=== PATIENT | male | born 1945 | race African-American/Black ===

== ENCOUNTER 2020-02-14 14:58 | Emergency (ER) | payer MEDICARE, SELFPAY ==
--- NOTE | ~2020-02-14 | XR_ITS ---
XR knee LT min 4V 02/14/2020 16:16 Indication: Left knee pain after trauma Procedure: 4 views left knee Comparison: No prior studies for comparison. Findings: There is mild-moderate tricompartment osteoarthritis. No acute fracture or traumatic malali gnment. No significant joint effusion. No focal soft tissue abnormality. No foreign bodies. 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 Reviewed, dictated and finalized at location A. 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
--- NOTE | ~2020-02-14 | XR_ITS ---
XR shoulder LT min 2V 02/14/2020 16:16 Indication: Left shoulder pain Procedure: 4 views left shoulder Comparison: No prior studies for comparison. Findings: No fracture, subluxation or dislocation. No significant soft tissue abnormality. No foreign bodies. Surrounding osseous structures and soft tissues are unremarkable. Impression: 1: No significant bone or joint abnormality. Reviewed, dictated and finalized at location A. Impression: 1: No significant bone or joint abnormality.
--- NOTE | ~2020-02-14 | CT_ITS ---
EXAMINATION: CT brain wo con, CT cervical spine wo con EXAM DATE: 02/14/2020 15:30 INDICATION: Head injury. TECHNIQUE: Spiral CT of the head was performed without contrast. Axial, coronal and sagittal images were reviewed. Spiral CT of the cervical spine was performed without contrast. Axial images were rev iewed. Coronal and sagittal reformatted images were also reviewed. The dose-length product (DLP) fo r this examination was 605.33 (accession [id number]), 442.41 (accession [id number]) mGy-cm. The exposure was tailored according to patient size, and iterative reconstruction (ASIR) was used as additional dose reduction technique. There is no prior study for comparison. FINDINGS: HEAD CT: There is no acute intraparenchymal hemorrhage. No evidence of intraparenchymal brain mass l esion. No evidence of acute infarction. There is mild periventricular and subcortical hypodensity, n onspecific but probably related to small vessel ischemic disease. There is prominence of the sulci and ventricles related to cerebral atrophy. There is intracranial carotid arteriosclerosis. There is no mass effect or midline shift. There is no obstructive hydrocephalus suspected. There are no e xtra-axial collections. There are no acute calvarial fractures. Patient has had bilateral ocular le ns surgery. Soft tissue is unremarkable. The visualized sinuses and mastoid air cells are well aera ana. CERVICAL CT: There is no evidence of acute cervical fracture. The odontoid process is intact. Pre-d ens space is normal. Prevertebral soft tissue is normal. There are no soft tissue abnormalities maria ntified. There is no disc space widening or traumatic vertebral body subluxation suspected. There i s moderate mid and lower cervical disc disease. There is mild to moderate cervical arthropathy. Thyro idectomy surgical clips. A detailed level by level evaluation of spondylosis can be added as addend um if requested. IMPRESSION: 1. No acute intracranial or cervical findings. 2. Moderate cervical disc disease, mild to moderate arthropathy. 3. Age-related intracranial findings. Reviewed, dictated and finalized at location A. IMPRESSION: 1. No acute intracranial or cervical findings. 2. Moderate cervical disc disease, mild to moderate arthropathy. 3. Age-related intracranial findings.
--- NOTE | ~2020-02-14 | XR_ITS ---
EXAMINATION: XR chest 1V EXAM DATE: 02/14/2020 16:17 INDICATION: Chest pain after injury. Lawnmower flipped on patient. History of cardiac disease. TECHNIQUE: Portable AP frontal chest x-ray was obtained. There is no prior study for comparison. FINDINGS: There are no acute displaced rib fractures identified. The lungs are clear. There are no p leural effusions. The cardiomediastinal silhouette is within normal limits. There is no pneumothora x suspected. The bones and soft tissues are unremarkable. Thyroidectomy clips. Clips overlying the cardiac contour. IMPRESSION: No acute cardiopulmonary findings. Reviewed, dictated and finalized at location A.
[2020-02-14 15:07] VITALS: BP 162/88; PULSE 55; RESP 18; TEMP 36.4; O2SAT 100
[2020-02-14] MEDS: MORPHINE SULFATE 2 MG/ML INJ IV PUSH (15:13)
[2020-02-14 15:46] LABS: Basophils Percent Auto 0.6 % (0.2-1.2); Eosinophils Absolute Auto 0.4 K/mm3 (0-0.3); Eosinophils Percent Auto 5.9 % (0-4.4); Immature Granulocyte Absolute 0.02 K/mm3 (0.00-0.031); Immature Granulocyte Percent A 0.3 % (0-0.5); Lymphocytes Absolute Auto 1.81 K/mm3 (0.9-3.2); Lymphocytes Percent Auto 27.9 % (18.3-44.2); Mean Corpuscular HGB Conc 33.3 g/dl (32-36); Mean Corpuscular Hemoglobin 34.2 pg (26-34); Mean Corpuscular Volume 102.7 fl (80-100); Mean Platelet Volume 10.8 fl (7.4-10.4); Monocytes Absolute Auto 0.8 K/mm3 (0.1-0.6); Monocytes Percent Auto 11.7 % (2.6-8.5); Neutrophils Absolute Auto 3.5 K/mm3 (1.3-6.7); Neutrophils Percent Auto 53.6 % (45.5-73.1); Platelet Count Result 225 k/mm3 (150-375); Red Blood Count 4.38 M/mm3 (4.6-6.20); Red Cell Distribution Width 13.2 % (11.5-14.5); White Blood Count 6.5 K/mm3 (4.5-10.0)
[2020-02-14 15:58] LABS: Alanine Aminotransferase 24 U/L (4-50); Albumin Level 3.8 g/dL (3.5-5.1); Alkaline Phosphatase 114 U/L (38-126); Aspartate Amino Transferase 27 U/L (17-59); Bilirubin,Total 0.5 mg/dL (0.2-1.3); Blood Urea Nitrogen 19 mg/dL (9-20); Calcium 8.9 mg/dL (8.4-10.2); Carbon Dioxide 29 mmol/L (22-30); Chloride 106 mmol/L (98-107); Estimated CRCL calculation 54 ml/min; Estimated Glomerular Filt Rate > 60; Glucose 101 mg/dL (75-110); Potassium 4.3 mmol/L (3.4-5.0); Prothrombin Time 12.7 Seconds (11.1-14.7); Sodium 136 mmol/L (137-145)
[2020-02-14 15:59] LABS: Partial Thromboplastin Time 30.4 SECONDS (22.3-36.8)
--- NOTE | 2020-02-14 16:45 | ED.GENADULT ---
HPI - General Adult General Chief complaint: Extremity Injury, Lower Stated complaint: SHOULDER/KNEE PAIN Time Seen by Provider: 02/14/20 15:00 History of Present Illness HPI narrative: Patient is a 74-year-old male who presents ER status post flipping his riding lawnmower. He opted to cut some grass on a wet hill when the lawnmower flipped. He did not strike his head or lose consciousness. He does have new left shoulder pain and left knee pain. He is at the hospital earlier today to have an MRI performed to see why he has some memory impairment and he also had a Holter monitor placed. At this time he is having no chest pain or shortness of breath/nausea/vomiting. He complains of no pain to the chest/abdomen/pelvis. He has good range of motion of his extremities. He is not on any blood thinners. He does not report being trapped beneath the lawnmower. Related Data Allergies Allergy/AdvReac Type Severity Reaction Status Date / Time No Known Allergies Allergy Unverified 07/08/17 10:28 Review of Systems Review of Systems: All systems reviewed & are unremarkable except as noted in HPI and below Constitutional: Constitutional: Denies chills, Denies fever(s) and Denies weakness ENT: Denies nasal congestion and Denies sore throat Cardiovascular: Cardiovascular: Denies chest pain and Denies radiating jaw, neck or arm pain Respiratory: Respiratory: Denies cough, Denies dyspnea and Denies wheezing Gastrointestinal: Gastrointestinal: Denies abdominal pain, Denies nausea and Denies vomiting Musculoskeletal: Musculoskeletal: Denies back pain, Denies myalgias and Reports arthralgias (Left knee and shoulder) PMFSH Past Medical History Medical History (Updated 02/14/20 @ 17:43 by Rehan Wells MD) Myasthenia gravis Surgical History Surgical History (Updated 02/14/20 @ 16:47 by Rehan Wells MD) No pertinent past surgical history Social History Social History (Updated 02/14/20 @ 16:47 by Rehan Wells MD) Smoking status: Never smoker Gender identity (if verbalized by the patient): Male Exam Narrative: Exam Narrative: GENERAL: Well-appearing, well-nourished, and in no acute distress. HEAD: Normocephalic, atraumatic. EYES: PERRL and EOMI. ENT: Mucous membranes moist. NECK: Supple. C-spine immobilized. CHEST: Clear to auscultation. No respiratory distress. HEART: Regular rate and rhythm. Normal peripheral pulses. ABDOMEN: Soft, nontender, nondistended. EXTREMITIES: Mild tenderness to palpation over the anterior aspect of the left shoulder in the anterolateral aspect of the proximal tibia at the knee. Otherwise patient has intact range of motion and strength at these joints. No additional deformity or tenderness over the extremities. SKIN: Warm, dry, no rash. NEURO: No focal deficits. Alert and oriented x3. Course Course Emergency Course: Patient informed of results. Pain-free. here to take him home. C-spine cleared. Vital Signs Vital signs: Vital Signs Temperature 97.6 F 02/14/20 15:07 Pulse Rate 55 L 02/14/20 15:07 Respiratory Rate 18 02/14/20 15:07 Blood Pressure 162/88 H 02/14/20 15:07 Pulse Oximetry 100 02/14/20 15:07 Temperature 98.0 F 02/14/20 17:07 Pulse Rate 67 02/14/20 17:09 Respiratory Rate 18 02/14/20 17:09 Blood Pressure 157/85 H 02/14/20 17:09 Pulse Oximetry 100 02/14/20 17:09 Medical Decision Making Vital Signs Vital Signs: Vital Signs Temperature 97.6 F 02/14/20 15:07 Pulse Rate 55 L 02/14/20 15:07 Respiratory Rate 18 02/14/20 15:07 Blood Pressure 162/88 H 02/14/20 15:07 Pulse Oximetry 100 02/14/20 15:07 Temperature 98.0 F 02/14/20 17:07 Pulse Rate 67 02/14/20 17:09 Respiratory Rate 18 02/14/20 17:09 Blood Pressure 157/85 H 02/14/20 17:09 Pulse Oximetry 100 02/14/20 17:09 Lab Data Result diagrams: 02/14/20 15:40 02/14/20 15:40 Labs: Lab Results
[2020-02-14 17:07] VITALS: BP 162/88; PULSE 55; RESP 12; TEMP 36.7; O2SAT 100
[2020-02-14 17:09] VITALS: BP 157/85; PULSE 67; RESP 18; O2SAT 100
== END 2020-02-14 17:54 | disposition home or self-care (01) ==
PROVIDERS: Emergency Provider Emergency Medicine; PCP Internal Medicine Geriatric Medicine
DX: G70.00 Myasthenia gravis without (acute) exacerbation (principal); S40.012A Contusion of left shoulder, initial encounter; S80.02XA Contusion of left knee, initial encounter; Y93.H2 Activity, gardening and landscaping; W28.XXXA Contact with powered lawn mower, initial encounter
CPT/HCPCS: 36415; 70450; 71045; 72125; 73030; 73564; 80053; 85025; 85610; 85730; 96374; 99284; J2270

== ENCOUNTER 2020-02-26 18:13 | Inpatient (IN) | payer MEDICARE, SELFPAY ==
--- NOTE | ~2020-02-26 | XR_ITS ---
EXAMINATION: XR small bowel follow through DATE: 02/29/2020 09:05 INDICATION: Gastrointestinal bleeding TECHNIQUE: Engineering Geologist radiograph(s) of the abdomen was/were obtained. Oral contrast was administered, and sequential radiographs of the abdomen were obtained until oral contrast was noted to be in the proxi mal colon. Spot fluoroscopic images of the small bowel were obtained. Fluoroscopy exposure time was 2 .4 minutes. A total of 6 overhead radiographs and 221 fluoroscopic images were recorded. COMPARISON: None. FINDINGS: Transit time from the stomach to proximal colon was approximately 30 minutes. There is normal caliber and mucosal fold pattern throughout the small bowel. There are several nonmobile smooth ovoid fillin g defects in the distal ileum which demonstrates some elasticity, reversibly readily deformable with compression. Correlation with prior CT confirms presence of multiple corresponding nodules with homog eneous fat attenuation consistent with lipomas. At least 9 lipomas can be counted on CT. The largest lipoma is the most distal in the terminal ileum approximately 10 cm from the ileocecal valve. Termina l ileum is otherwise normal. No tethering or abnormal mass effect observed upon the small bowel with real-time fluoroscopy. IMPRESSION: 1. Multiple smooth ovoid filling defects within the distal ileum corresponding to lipomas on prior CT . Otherwise unremarkable small bowel follow-through. Reviewed, dictated and finalized at location A. IMPRESSION: 1. Multiple smooth ovoid filling defects within the distal ileum corresponding to lipomas on prior CT. Otherwise unremarkable small bowel follow-through.
--- NOTE | ~2020-02-26 | CT_ITS ---
EXAMINATION: CT abdomen pelvis w con INDICATION: Abdominal pain, hematochezia TECHNIQUE: Computed tomographic images of the abdomen and pelvis were obtained after the administrati on of 100 cc of Omnipaque 350 intravenous contrast. The dose-length product (DLP) was 932.50 mGy-cm. Automated exposure control and iterative reconstruction technique were employed. COMPARISON: None available FINDINGS: The lung bases are clear. The heart size is normal. There are surgical changes at the gastr oesophageal junction. The distal esophagus is mildly dilated and contains fluid. Cysts of the liver m easure up to 1.9 cm. The spleen, pancreas, gallbladder, and adrenal glands are normal. Cysts of the k idneys measure up to 2.9 cm on the left. There is calcified atherosclerosis of the aorta and many of the other arteries. No pathologically enlarged abdominal or pelvic lymph nodes are identified. There is no free intraperitoneal gas or evidence of bowel obstruction. A moderate volume of colonic stool i s present. The appendix is normal. There is a left inguinal hernia containing fat. There are several fat attenuation masses in the distal small bowel measuring up to 2.3 cm, consistent with lipomas. The re is severe lumbar spondylosis at L5-S1. IMPRESSION: 1. No CT correlate for the patient's symptoms. Reviewed, dictated and finalized at location A.
[2020-02-26 18:15] VITALS: BP 188/58; PULSE 82; RESP 18; TEMP 36.6; O2SAT 99
[2020-02-26 18:31] VITALS: BP 146/80; PULSE 79; RESP 23; TEMP 36.4; O2SAT 99
[2020-02-26 18:38] LABS: Basophils Percent Auto 0.5 % (0.2-1.2); Eosinophils Absolute Auto 0.4 K/mm3 (0-0.3); Eosinophils Percent Auto 4.8 % (0-4.4); Hematocrit 37.6 % (42.0-52.0); Hemoglobin 12.8 g/dL (14.0-18.0); Immature Granulocyte Absolute 0.02 K/mm3 (0.00-0.031); Immature Granulocyte Percent A 0.2 % (0-0.5); Lymphocytes Percent Auto 26.5 % (18.3-44.2); Mean Corpuscular Hemoglobin 34.8 pg (26-34); Mean Corpuscular Volume 102.2 fl (80-100); Mean Platelet Volume 11.6 fl (7.4-10.4); Monocytes Absolute Auto 0.7 K/mm3 (0.1-0.6); Monocytes Percent Auto 8.8 % (2.6-8.5); Neutrophils Absolute Auto 4.9 K/mm3 (1.3-6.7); Neutrophils Percent Auto 59.2 % (45.5-73.1); Platelet Count Result 157 k/mm3 (150-375); Red Blood Count 3.68 M/mm3 (4.6-6.20); Red Cell Distribution Width 13.2 % (11.5-14.5); White Blood Count 8.3 K/mm3 (4.5-10.0)
[2020-02-26 18:50] LABS: Alanine Aminotransferase 23 U/L (4-50); Albumin Level 3.7 g/dL (3.5-5.1); Alkaline Phosphatase 99 U/L (38-126); Aspartate Amino Transferase 31 U/L (17-59); Bilirubin,Total 0.6 mg/dL (0.2-1.3); Blood Urea Nitrogen 23 mg/dL (9-20); Calcium 8.5 mg/dL (8.4-10.2); Carbon Dioxide 22 mmol/L (22-30); Chloride 110 mmol/L (98-107); Estimated CRCL calculation 57 ml/min; Estimated Glomerular Filt Rate > 60; Glucose 99 mg/dL (75-110); Lipase 116 U/L (23-300); Potassium 3.8 mmol/L (3.4-5.0); Sodium 136 mmol/L (137-145)
--- NOTE | 2020-02-26 19:21 | ED.GENADULT ---
HPI - General Adult General Chief complaint: GI Bleed Stated complaint: Rectal Bleeding Time Seen by Provider: 02/26/20 19:06 Source: RN notes reviewed History of Present Illness HPI narrative: Patient presents emergency department from home for abdominal pain. Patient states pain began 4 days ago. The pain is located in the right side of the abdomen described as aching in nature. States is been associated with numerous episodes of bright red blood in the stool. States he is had 3 episodes today. Patient states he has a history of diverticulitis and this feels similar. He denies any fevers or chills nausea vomiting or any other symptoms at this time Related Data Home Medications Medication Instructions Recorded Confirmed donepezil mg 02/26/20 gabapentin 02/26/20 levothyroxine 02/26/20 omeprazole 02/26/20 02/26/20 oxycodone 02/26/20 tamsulosin mg PO 02/26/20 temazepam mg 02/26/20 Allergies Allergy/AdvReac Type Severity Reaction Status Date / Time No Known Allergies Allergy Unverified 02/26/20 18:18 Review of Systems Review of Systems: Narrative: Gen.: Denies fevers or chills ENT: Denies congestion Respiratory: Denies shortness of breath or cough CV: Denies chest pain or palpitations GI: See HPI denies burning, urgency, frequency or hematuria Musculoskeletal: Denies back pain or muscle pain Neuro: Denies numbness, tingling, weakness or focal weakness Skin: Denies rash Except as documented, all other systems reviewed and negative PMFSH Past Medical History Medical History (Updated 02/26/20 @ 21:47 by Manjinder Perez DO) Diverticulitis Myasthenia gravis Surgical History Surgical History (Updated 02/14/20 @ 16:47 by Rehan Wells MD) No pertinent past surgical history Social History Social History Smoking status: Never smoker Gender identity (if verbalized by the patient): Male Exam Narrative: Exam Narrative: APPEARANCE: No acute distress, nontoxic, resting in bed HEENT: Normocephalic, atraumatic, OMM RESPIRATORY: No respiratory distress, clear to auscultation bilaterally with no rhonchi wheezing or rales CARDIOVASCULAR: RRR s murmur ABDOMINAL: Soft, nondistended, tender to palpation right upper quadrant right lower quadrant, no tenderness left upper quadrant with lower quadrant, no rebound or guarding Rectal: No hemorrhoids or fissures, minor amount of maroon blood that is Hemoccult positive MUSCULOSKELETAl: Moves all extremities. No clubbing, cyanosis or edema. NEURO: Awake and alert. Following commands, speech normal, no focal deficits SKIN:: Warm, dry. Normal Color PSYCHIATRIC: Normal affect/mood Course Course Emergency Course: Reviewed old records. Patient is been seen by Dr. Menendez before in past. Patient with a hemoglobin of 15 earlier this month Discussed with Dr. Fowler presentation work-up. Agrees with admission at this time Discussed with patient and family results of workup and diagnosis. Discussed need for admission. Patient and family understand and agree to current treatment plan Vital Signs Vital signs: Vital Signs Temperature 97.8 F 02/26/20 18:15 Pulse Rate 82 02/26/20 18:15 Respiratory Rate 18 02/26/20 18:15 Blood Pressure 188/58 H 02/26/20 18:15 Pulse Oximetry 99 02/26/20 18:15 Temperature 97.2 F L 02/26/20 21:15 Pulse Rate 60 02/26/20 21:15 Respiratory Rate 12 02/26/20 21:15 Blood Pressure 137/83 02/26/20 21:15 Pulse Oximetry 100 02/26/20 21:15 Medical Decision Making Vital Signs Vital Signs: Vital Signs Temperature 97.8 F 02/26/20 18:15 Pulse Rate 82 02/26/20 18:15 Respiratory Rate 18 02/26/20 18:15 Blood Pressure 188/58 H 02/26/20 18:15 Pulse Oximetry 99 02/26/20 18:15 Temperature 97.2 F L 02/26/20 21:15 Pulse Rate 60 02/26/20 21:15 Respiratory Rate 12 02/26/20 21:15 Blood Pressure 137/83 02/26/20 21:15 Pulse
[2020-02-26 19:29] VITALS: BP 145/96; PULSE 77; RESP 20; TEMP 36.4; O2SAT 100
[2020-02-26 19:39] LABS: Add Urine Microscopic? YES; Appearance Urine Clear (Clear); Bilirubin Urine Negative (Negative); Blood Urine 2+ (Negative); Color Urine Yellow (Yellow); Glucose Urine UA Negative (Negative); Ketones Urine Negative (Negative); Leukocyte Esterase Ur Trace LEU/UL (Negative); Mucus Urine Rare /lpf; Nitrate Urine Negative (Negative); Protein Urine Negative (Negative); RBC Urine 21-50 /hpf (0-2); Squamous Epithelial Cell Urine Rare /hpf (Few); WBC Urine 0-3 /hpf
[2020-02-26 19:40] LABS: Specific Grav Ur 1.031 (1.001-1.035)
[2020-02-26] MEDS: SODIUM CHLORIDE 0.9% IV 1,000 ML 999 ML IV CONT (19:56)
[2020-02-26 21:15] VITALS: BP 137/83; PULSE 60; RESP 12; TEMP 36.2; O2SAT 100
[2020-02-26 22:04] VITALS: BP 155/86; PULSE 70; RESP 14; TEMP 36.2; O2SAT 100
[2020-02-26 22:09] LABS: Prothrombin Time 12.6 Seconds (11.1-14.7)
[2020-02-26 22:10] LABS: Partial Thromboplastin Time 29.2 SECONDS (22.3-36.8)
--- NOTE | 2020-02-26 22:51 | ADMGEN ---
This patient, Abrahan Gtz Jr., was admitted to Medical Room 258-01. Patient/family oriented to hospital policies and general routines including ID bracelet, bed and alarms, visiting hours, pain management, procedures, bathroom and other care routines, personal items, smoking policy, room service/diet, and visiting hours. Valuables list has been completed. Information on how to activate the Rapid Response Team has been discussed. Patient/Family are encouraged to report perceived risks to care and to ask questions if they do not understand what they are told or what they should do.
[2020-02-26 22:52] VITALS: BMI 29.8
[2020-02-26 22:53] VITALS: PULSE 54; RESP 18; TEMP 36.3; O2SAT 100
[2020-02-26] MEDS: SODIUM CHLORIDE 0.9% IV 1,000 ML 125 ML IV CONT (23:05)
[2020-02-26 23:23] LABS: Hematocrit 33.8 % (42.0-52.0); Hemoglobin 11.4 g/dL (14.0-18.0)
[2020-02-27 05:42] LABS: Hematocrit 32.4 % (42.0-52.0); Hemoglobin 11.1 g/dL (14.0-18.0)
[2020-02-27 06:00] VITALS: BP 136/72; PULSE 60; RESP 20; TEMP 36.6; O2SAT 98
[2020-02-27 06:11] LABS: Alanine Aminotransferase 20 U/L (4-50); Albumin Level 2.9 g/dL (3.5-5.1); Alkaline Phosphatase 87 U/L (38-126); Aspartate Amino Transferase 23 U/L (17-59); Bilirubin,Total 0.5 mg/dL (0.2-1.3); Blood Urea Nitrogen 17 mg/dL (9-20); Calcium 7.7 mg/dL (8.4-10.2); Carbon Dioxide 25 mmol/L (22-30); Chloride 111 mmol/L (98-107); Estimated CRCL calculation 62 ml/min; Estimated Glomerular Filt Rate > 60; Glucose 87 mg/dL (75-110); Potassium 3.9 mmol/L (3.4-5.0); Sodium 136 mmol/L (137-145)
[2020-02-27] MEDS: SODIUM CHLORIDE 0.9% IV 1,000 ML 125 ML IV CONT (06:51)
--- NOTE | 2020-02-27 07:29 | WPDGICN ---
Assessment and Plan Assessment and plan (1) Acute lower GI bleeding: Code(s): K92.2 - Gastrointestinal hemorrhage, unspecified Status: Acute Assessment and Plan: Abrupt lower GI bleeding over the last 3-4 days. Appears more than would be expected from his known hemorrhoids. He is also known to have diverticular disease which is quite likely possibility for this blood loss. Other etiologies include possibility for for polyps cancer colitis or blood other blood vessels bleeding. Plan is for colonoscopy after preparation today. Hemoglobin will be continued to be monitored. (2) Anemia: Code(s): D64.9 - Anemia, unspecified Status: Acute Assessment and Plan: Only mild I would anemia identified. Likely related to abrupt blood loss. At this point transfusion is not been required but will be transfused should hemoglobin fall significantly. (3) Myasthenia gravis: Code(s): G70.00 - Myasthenia gravis without (acute) exacerbation Status: Acute (4) Diverticulosis: Code(s): K57.90 - Diverticulosis of intestine, part unspecified, without perforation or abscess without bleeding Status: Acute Assessment and Plan: Patient known to have diverticular disease from prior colonoscopy. No history of infection or diverticulitis known in the past. This remains a possibility for current GI blood loss. Usually this will stop on its own. Colonoscopy planned after preparation. GI Consult Note Consult date/time: 02/27/20 07:29 HPI: Abrahan Gtz Jr. is a 74 year old male Seen in evaluation at the request of the emergency room. Patient states he was in usual state of health till Wednesday 3 days ago. On Wednesday had sudden onset of dark maroonish blood per rectum. This persisted throughout the weekend. He notices associated abdominal cramping. He did feel somewhat weak and lightheaded. He denies any rectal pain. Because of ongoing rectal bleeding he presented to the emergency room last evening. His hemoglobin was noted to be 11. He was admitted for further evaluation. Patient states that he had similar bleeding episode in 2014. At that time colonoscopy confirm diverticulosis and hemorrhoids. His current weight appetite bowel movements have been normal until this occurrence. Family history is noncontributory. 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 At 1 time he was told he had myasthenia gravis. Review of Systems Review of Systems: All systems reviewed & are unremarkable except as noted in HPI and below PMFSH Past Medical History Medical History Diverticulitis Myasthenia gravis Surgical History Surgical History No pertinent past surgical history Family History Family History Mother Acute myocardial infarction Hypertension Father Acute myocardial infarction Chronic obstructive pulmonary disease History of blood clots Hypertension Sibling Acute myocardial infarction Hypertension Social History Social History Smoking packs per day: 1 Smoking cigarettes per day: 20.0 Years smoked: 4 Smoking pack-years: 4.00 Smoking status: Former smoker Tobacco type: cigarettes Alcohol intake: current Drinks per week: 2 Substance use: never Substance use type: does not use Gender identity (if verbalized by the patient): Male Spiritual care concerns: No Meds Home Medications and Allergies Home Medications Medication Instructions Recorded Confirmed Type acetaminophen 500 mg PO QID PRN 02/26/20 02/26/20 History aspirin [Adult Low Dose Aspirin] 81 mg PO DAILY 02/26/20 02/26/20 History docusate sodium [Colace] 100 mg PO DAILY PRN 02/26/20 02/26/20 History donepezil 10 mg PO HS 02/26/20 02/26/20 H
[2020-02-27] MEDS: PEG (High)/E-LYTE SOLN 4,000 ML BTL 4000 ML PO (09:56)
--- NOTE | 2020-02-27 10:06 | PM.IMHP ---
H&P: HPI History of Present Illness Chief complaint: GI Bleed Narrative: Date of visit 02/26. Abrahan Gtz Jr. is a 74 year old male with hypothyroidism BPH and mild cognitive impairment with history of diverticulosis and GI bleed some 5 years ago presented to the emergency room on the with 3 days history of bright red and dark blood per rectum. He had some upper abdominal discomfort also but no nausea or vomiting. Does take 2 baby aspirins daily but only about 2 alcoholic drinks a week and no anti-inflammatories. Previous colonoscope showed diverticular disease only with hemorrhoids. He states that he had been transfused on previous occasion. with the present episode he has felt lightheaded and weak and slightly short of breath. Review of Systems Review of Systems: Narrative: Constitutional weight steady appetite good prior to present illness eye no double vision scotoma Mouth a pharyngitis laryngitis Pulmonary no shortness breath prior to present illness CV no chest pain or palpitation GI as per present illness no symptomatology prior to 3 days ago and bowel movements have been normal some since urgency and frequency which has improved with the tamsulosin prescribed by his primary Muscle skeletal degenerative arthritis both knees status post arthroscopic surgery some 2 years ago on contemplating joint replacements now Integument no skin breakdown rashes Neuro no seizures no syncope but relates that he does have some difficulty with memory at times Endocrine status post thyroidectomy and December of this year at [facility] for enlarged thyroid which was benign now on thyroid replacement [facility] [place] Past Medical History Medical History (Updated 02/27/20 @ 10:22 by Gregory Tran MD) Diverticulitis Surgical History Surgical History (Updated 02/27/20 @ 10:09 by Gregory Tran MD) H/O arthroscopic knee surgery H/O thyroidectomy Family History Family History (Updated 02/27/20 @ 10:10 by Gregory Tran MD) Mother , age 85 Acute myocardial infarction Hypertension Father , age 70 Acute myocardial infarction Chronic obstructive pulmonary disease History of blood clots Hypertension Sibling Acute myocardial infarction Hypertension Social History Social History (Updated 02/27/20 @ 10:12 by Gregory Tran MD) Social History: 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[employer], 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[employer], 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 3 children living and well Smoking packs per day: 1 Smoking cigarettes per day: 20.0 Years smoked: 4 Smoking pack-years: 4.00 Smoking status: Former smoker Tobacco type: cigarettes Alcohol intake: current Drinks per week: 2 Substance use: never Substance use type: does not use Living arrangements: with family Gender identity (if verbalized by the patient): Male Spiritual care concerns: No Meds Home Medications and Allergies Home Medications Medication Instructions Recorded Confirmed Type acetaminophen 500 mg PO QID PRN 02/26/20 02/26/20 History aspirin [Adult Low Dose Aspirin] 81 mg PO DAILY 02/26/20 02/26/20 History docusate sodium [Colace] 100 mg PO DAILY PRN 02/26/20 02/26/20 History donepezil 10 mg PO HS 02/26/20 02/26/20 History gabapentin 600 mg PO HS 02/26/20 02/26/20 History hydrocodone-acetaminophen [[place]] 1 tablet PO Q6H PRN 02/26/20 02/26/20 History levothyroxine 150 mcg PO DAILY 02/26/20 02/26/20 History omeprazole 20 mg PO DAILY 02/26/20 02/26/20 History oxycodone 5 mg PO Q4-6H PRN 02/26/20 02/26/20 History tamsulosin 0.4 mg PO DAILY 02/26/20 02/26/20 History temazepam 15 mg PO HS 02/26/20 02/26/20 History Allergies Allergy/AdvReac Type Severity Reaction Status Date / Time No Known Allergies Allergy Unverified 02/26/20 18:18 Vital Signs Vital Signs - 24 hr 02/26/20 18:15 02/26/20 18:31 02/26/20 19:29 Temperature 36.6 C 36.4 C L 36.4 C L Pulse
[2020-02-27] MEDS: TAMSULOSIN HCL 0.4 MG CAPSULE PO (11:35)
[2020-02-27] MEDS: LEVOTHYROXINE SODIUM 150 MCG TABLET PO (11:36)
[2020-02-27] MEDS: PANTOPRAZOLE 40 MG TABLET PO (11:36)
[2020-02-27 12:07] LABS: Hematocrit 32.8 % (42.0-52.0); Hemoglobin 10.9 g/dL (14.0-18.0)
[2020-02-27 14:00] VITALS: BP 132/76; PULSE 56; RESP 16; TEMP 36.5; O2SAT 100
[2020-02-27] MEDS: SODIUM CHLORIDE 0.9% IV 1,000 ML 100 ML IV CONT (14:51)
--- NOTE | 2020-02-27 17:09 | WPDANESEPP ---
Anes - Eval Pre Procedure Procedure: Operation Date: 02/28/20 08:30 Proposed Procedures p Colonoscopy - Grey Menendez MD Date/Time: 02/27/20 17:09 Pre Op Diagnosis: GI Bleed Patient Data Age: 74 Gender: M Height: 6 ft Weight: 99.8 kg Last Vital Signs Temp 97.7 F 02/27/20 14:00 Pulse 56 L 02/27/20 14:00 Resp 16 02/27/20 14:00 BP 132/76 02/27/20 14:00 Pulse Ox 100 02/27/20 14:00 Allergies Allergy/AdvReac Type Severity Reaction Status Date / Time No Known Allergies Allergy Unverified 02/26/20 18:18 Home Medications Medication Instructions Recorded Confirmed Type acetaminophen 500 mg PO QID PRN 02/26/20 02/26/20 History aspirin [Adult Low Dose Aspirin] 81 mg PO DAILY 02/26/20 02/26/20 History docusate sodium [Colace] 100 mg PO DAILY PRN 02/26/20 02/26/20 History donepezil 10 mg PO HS 02/26/20 02/26/20 History gabapentin 600 mg PO HS 02/26/20 02/26/20 History hydrocodone-acetaminophen [[place]] 1 tablet PO Q6H PRN 02/26/20 02/26/20 History levothyroxine 150 mcg PO DAILY 02/26/20 02/26/20 History omeprazole 20 mg PO DAILY 02/26/20 02/26/20 History oxycodone 5 mg PO Q4-6H PRN 02/26/20 02/26/20 History tamsulosin 0.4 mg PO DAILY 02/26/20 02/26/20 History temazepam 15 mg PO HS 02/26/20 02/26/20 History Laboratory Tests 02/26/20 02/26/20 02/26/20 18:31 18:33 18:33 WBC 8.3 K/mm3 K/mm3 (4.5-10.0) RBC 3.68 M/mm3 L M/mm3 (4.6-6.20) Hgb 12.8 g/dL L g/dL (14.0-18.0) Hct 37.6 % L % (42.0-52.0) MCV 102.2 fl H fl (80-100) MCH 34.8 pg H pg (26-34) MCHC 34.0 g/dl g/dl (32-36) RDW 13.2 % % (11.5-14.5) Plt Count 157 k/mm3 k/mm3 (150-375) MPV 11.6 fl H fl (7.4-10.4) Immature Gran % (Auto) 0.2 % % (0-0.5) Neut % (Auto) 59.2 % % (45.5-73.1) Lymph % (Auto) 26.5 % % (18.3-44.2) [place] % (Auto) 8.8 % H % (2.6-8.5) Eos % (Auto) 4.8 % H % (0-4.4) Baso % (Auto) 0.5 % % (0.2-1.2) Lymph # (Auto) 2.20 K/mm3 K/mm3 (0.9-3.2) [place] # (Auto) 0.7 K/mm3 H K/mm3 (0.1-0.6) Eos # (Auto) 0.4 K/mm3 H K/mm3 (0-0.3) Baso # (Auto) 0.0 K/mm3 K/mm3 (0.0-0.1) Abs Immat Gran (auto) 0.02 K/mm3 K/mm3 (0.00-0.031) Absolute Neuts (auto) 4.9 K/mm3 K/mm3 (1.3-6.7) Absolute Nucleated RBC 0.0 K/mm3 K/mm3 (0.0-0.012) Nucleated RBC % 0.0 % % (0.0-0.2) PT 12.6 Seconds Seconds (11.1-14.7) INR 1.0 APTT 29.2 SECONDS SECONDS (22.3-36.8) Sodium 136 mmol/L L mmol/L (137-145) Potassium 3.8 mmol/L mmol/L (3.4-5.0) Chloride 110 mmol/L H mmol/L (98-107) Carbon Dioxide 22 mmol/L mmol/L (22-30) BUN 23 mg/dL H mg/dL (9-20) Creatinine 1.10 mg/dL mg/dL (0.7-1.3) Estim Creat Clear Calc 57 ml/min ml/min Estimated GFR > 60 (59 - ) Glucose 99 mg/dL mg/dL (75-110) Calcium 8.5 mg/dL mg/dL (8.4-10.2) Total Bilirubin 0.6 mg/dL mg/dL (0.2-1.3) AST 31 U/L U/L (17-59) ALT 23 U/L U/L (4-50) Alkaline Phosphatase 99 U/L U/L (38-126) Total Protein 7.0 g/dL g/dL (6.3-8.2) Albumin 3.7 g/dL g/dL (3.5-5.1) Lipase 116 U/L U/L (23-300) Urine Color Urine Appearance Urine pH Ur Specific [place] Urine Protein Urine Glucose (UA) Urine Ketones Ur Blood (Man) Urine Nitrate Urine Bilirubin Urine Urobilinogen Leukocyte Esterase Rfl Urine RBC Urine WBC Ur Squamous Epith Cells Urine Mucus Blood Type Antibody Screen 02/26/20 02/26/20 02/26/20 19:30 2
[2020-02-27 20:00] VITALS: BP 161/76; PULSE 57; RESP 20; TEMP 36.6; O2SAT 100
[2020-02-27] MEDS: DONEPEZIL HCL 10 MG TABLET PO (21:02)
[2020-02-27] MEDS: GABAPENTIN 300 MG CAPSULE 600 MG PO (21:02)
[2020-02-27 22:43] LABS: Hemoglobin 11.4 g/dL (14.0-18.0)
[2020-02-28] VITALS (13 sets, daily range): BP systolic 106–159; BP diastolic 58–83; PULSE 51–68; RESP 15–23; TEMP 36.5–36.9; O2SAT 98–100
[2020-02-28] MEDS: SODIUM CHLORIDE 0.9% IV 1,000 ML 100 ML IV CONT (00:55)
[2020-02-28 05:35] LABS: Basophils Percent Auto 0.7 % (0.2-1.2); Eosinophils Absolute Auto 0.3 K/mm3 (0-0.3); Eosinophils Percent Auto 5.9 % (0-4.4); Hematocrit 29.2 % (42.0-52.0); Immature Granulocyte Absolute 0.02 K/mm3 (0.00-0.031); Immature Granulocyte Percent A 0.4 % (0-0.5); Lymphocytes Absolute Auto 1.82 K/mm3 (0.9-3.2); Lymphocytes Percent Auto 32.7 % (18.3-44.2); Mean Corpuscular HGB Conc 34.2 g/dl (32-36); Mean Corpuscular Hemoglobin 34.5 pg (26-34); Mean Corpuscular Volume 100.7 fl (80-100); Mean Platelet Volume 11.3 fl (7.4-10.4); Monocytes Absolute Auto 0.6 K/mm3 (0.1-0.6); Neutrophils Absolute Auto 2.8 K/mm3 (1.3-6.7); Neutrophils Percent Auto 49.3 % (45.5-73.1); Platelet Count Result 149 k/mm3 (150-375); Red Cell Distribution Width 13.1 % (11.5-14.5); White Blood Count 5.6 K/mm3 (4.5-10.0)
[2020-02-28 05:50] LABS: Blood Urea Nitrogen 8 mg/dL (9-20); Calcium 7.5 mg/dL (8.4-10.2); Carbon Dioxide 26 mmol/L (22-30); Chloride 110 mmol/L (98-107); Estimated CRCL calculation 68 ml/min; Estimated Glomerular Filt Rate > 60; Glucose 98 mg/dL (75-110); Potassium 3.9 mmol/L (3.4-5.0); Sodium 137 mmol/L (137-145)
[2020-02-28 06:16] LABS: Thyroid Stimulating Hormone 0.732 uIU/mL (0.465-4.680)
--- NOTE | 2020-02-28 07:20 | PC.NURSE ---
Pt to GI lab via [facility].
[2020-02-28] MEDS: LACTATED RINGERS 1,000 ML 150 ML IV CONT (07:49)
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
--- NOTE | 2020-02-28 08:19 | WPDANESEPPF ---
Anes - Initial Pre Proc Eval Procedure: Operation Date: 02/28/20 08:30 Proposed Procedures p Colonoscopy - Grey Menendez MD Date/Time: 02/28/20 08:19 Surgeon: Silvia Fowler DO Pre Op Diagnosis: GI Bleed Patient Data Age: 74 Gender: M Height: 6 ft Weight: 99.8 kg Last Vital Signs Temp 98.1 F 02/28/20 07:48 Pulse 59 L 02/28/20 07:48 Resp 18 02/28/20 07:48 BP 131/68 02/28/20 07:48 Pulse Ox 99 02/28/20 07:48 Allergies Allergy/AdvReac Type Severity Reaction Status Date / Time No Known Allergies Allergy Unverified 02/26/20 18:18 Home Medications Medication Instructions Recorded Confirmed Type acetaminophen 500 mg PO QID PRN 02/26/20 02/26/20 History aspirin [Adult Low Dose Aspirin] 81 mg PO DAILY 02/26/20 02/26/20 History docusate sodium [Colace] 100 mg PO DAILY PRN 02/26/20 02/26/20 History donepezil 10 mg PO HS 02/26/20 02/26/20 History gabapentin 600 mg PO HS 02/26/20 02/26/20 History hydrocodone-acetaminophen [[place]] 1 tablet PO Q6H PRN 02/26/20 02/26/20 History levothyroxine 150 mcg PO DAILY 02/26/20 02/26/20 History omeprazole 20 mg PO DAILY 02/26/20 02/26/20 History oxycodone 5 mg PO Q4-6H PRN 02/26/20 02/26/20 History tamsulosin 0.4 mg PO DAILY 02/26/20 02/26/20 History temazepam 15 mg PO HS 02/26/20 02/26/20 History Laboratory Tests 02/27/20 02/27/20 02/28/20 11:54 22:38 05:13 WBC 5.6 K/mm3 K/mm3 (4.5-10.0) RBC 2.90 M/mm3 L M/mm3 (4.6-6.20) Hgb 10.9 g/dL L g/dL 11.4 g/dL L g/dL 10.0 g/dL L g/dL (14.0-18.0) (14.0-18.0) (14.0-18.0) Hct 32.8 % L % 33.0 % L % 29.2 % L % (42.0-52.0) (42.0-52.0) (42.0-52.0) MCV 100.7 fl H fl (80-100) MCH 34.5 pg H pg (26-34) MCHC 34.2 g/dl g/dl (32-36) RDW 13.1 % % (11.5-14.5) Plt Count 149 k/mm3 L k/mm3 (150-375) MPV 11.3 fl H fl (7.4-10.4) Immature Gran % (Auto) 0.4 % % (0-0.5) Neut % (Auto) 49.3 % % (45.5-73.1) Lymph % (Auto) 32.7 % % (18.3-44.2) [place] % (Auto) 11.0 % H % (2.6-8.5) Eos % (Auto) 5.9 % H % (0-4.4) Baso % (Auto) 0.7 % % (0.2-1.2) Lymph # (Auto) 1.82 K/mm3 K/mm3 (0.9-3.2) [place] # (Auto) 0.6 K/mm3 K/mm3 (0.1-0.6) Eos # (Auto) 0.3 K/mm3 K/mm3 (0-0.3) Baso # (Auto) 0.0 K/mm3 K/mm3 (0.0-0.1) Abs Immat Gran (auto) 0.02 K/mm3 K/mm3 (0.00-0.031) Absolute Neuts (auto) 2.8 K/mm3 K/mm3 (1.3-6.7) Absolute Nucleated RBC 0.0 K/mm3 K/mm3 (0.0-0.012) Nucleated RBC % 0.0 % % (0.0-0.2) Sodium Potassium Chloride Carbon Dioxide BUN Creatinine Estim Creat Clear Calc Estimated GFR Glucose Calcium TSH 02/28/20 05:13 WBC RBC Hgb Hct MCV MCH MCHC RDW Plt Count MPV Immature Gran % (Auto) Neut % (Auto) Lymph % (Auto) [place] % (Auto) Eos % (Auto) Baso % (Auto) Lymph # (Auto) [place] # (Auto) Eos # (Auto) Baso # (Auto) Abs Immat Gran (auto) Absolute Neuts (auto) Absolute Nucleated RBC Nucleated RBC % Sodium 137 mmol/L mmol/L (137-145) Potassium 3.9 mmol/L mmol/L (3.4-5.0) Chloride 110 mmol/L H mmol/L (98-107) Carbon Dioxide 26 mmol/L mmol/L (22-30) BUN 8 mg/dL L D mg/dL (9-20) Creatinine 0.90 mg/dL mg/dL (0.7-1.3) Estim Creat Clear Calc 68 ml/min ml/min Estimated GFR > 60 (59 - ) Glucose 98 mg/dL mg/dL (75-110) Calcium 7.5 mg/dL L mg/dL (8.4-10.2) TSH 0.732 uIU/mL uIU/mL (0.465-4.680) Patient hx anesthesia problems: none Family hx anesthesia problems: none [facility] Past Medical History Medical History (Updated
--- NOTE | 2020-02-28 09:33 | PC.NURSE ---
Pt returned to floor via stretcher.
[2020-02-28] MEDS: TAMSULOSIN HCL 0.4 MG CAPSULE PO (09:42)
[2020-02-28] MEDS: LEVOTHYROXINE SODIUM 150 MCG TABLET PO (09:42)
[2020-02-28] MEDS: PANTOPRAZOLE 40 MG TABLET PO (14:03)
--- NOTE | 2020-02-28 15:20 | PM.IMPN ---
Progress Note: A&P Assessment and Plan (1) Acute lower GI bleeding: Code(s): K92.2 - Gastrointestinal hemorrhage, unspecified Status: Acute Assessment and Plan: Most likely diverticular bleeding especially with with colonoscope today revealing stigmata of bleeding but no active bleeding from diverticuli. Hemorrhoids also present Small-bowel follow-through will be obtained, had eaten this a.m. before he could be done so will x-ray in a.m. (2) Anemia: Code(s): D64.9 - Anemia, unspecified Status: Acute Assessment and Plan: Acute blood loss. Hemoglobin down to 10.0 but no active further bleeding continue to monitor (3) Diverticulosis: Code(s): K57.90 - Diverticulosis of intestine, part unspecified, without perforation or abscess without bleeding Status: Acute Assessment and Plan: Past history. Repeat colonoscope revealed scattered diverticuli with stigmata of recent bleeding but no active bleeding (4) BPH (benign prostatic hyperplasia): Code(s): N40.0 - Benign prostatic hyperplasia without lower urinary tract symptoms Status: Acute Assessment and Plan: Continue tamsulosin (5) Hypothyroid: Code(s): E03.9 - Hypothyroidism, unspecified Status: Acute Assessment and Plan: Recent thyroidectomy. TSH normal Calcium is normal (6) DVT prophylaxis: Code(s): Z29.9 - Encounter for prophylactic measures, unspecified Status: Acute Assessment and Plan: Mechanical with GI bleed Subjective Date/time seen: 02/28/20 15:20 Interval history: Date of visit 02/27. 74-year-old black male admitted with removed blood per rectum. Hemoglobin has slowly fallen down but he does feel better today. Had colonoscopy in eating breakfast at the time my visit. No more bloody stools Exam Narrative: Exam Narrative: Blood pressure 138/62 pulse is 68 regular afebrile Pupils equal reactive to light sclera anicteric Neck supple Lungs clear CV regular rate rhythm no murmurs or gallops Abdomen soft nontender no masses Extremities without edema dorsalis pedis posterior tibial 1+ Neuro alert cooperative no focal deficits cranial nerves 2-12 are intact Integument no skin breakdown rashes Psych pleasant cooperative Objective Data Vital Signs Vital Signs: Vital Signs - 24 hr 02/27/20 20:00 02/28/20 04:00 02/28/20 07:48 Temperature 36.6 C 36.6 C 36.7 C Pulse Rate 57 L 62 59 L Respiratory Rate 20 20 18 Blood Pressure 161/76 H 159/72 H 131/68 Pulse Oximetry 100 99 99 02/28/20 08:44 02/28/20 08:54 02/28/20 09:04 Temperature Pulse Rate 68 60 61 Respiratory Rate 23 H 20 20 Blood Pressure 118/69 106/65 112/58 L Pulse Oximetry 98 100 100 02/28/20 09:14 02/28/20 09:40 02/28/20 09:55 Temperature 36.6 C 36.6 C Pulse Rate 61 51 L 54 L Respiratory Rate 22 H 15 16 Blood Pressure 128/62 134/80 139/80 Pulse Oximetry 100 100 100 02/28/20 10:25 02/28/20 11:25 02/28/20 14:00 Temperature 36.6 C 36.5 C 36.9 C Pulse Rate 57 L 59 L 68 Respiratory Rate 16 17 16 Blood Pressure 124/83 123/78 138/63 Pulse Oximetry 100 100 100 Intake/Output Intake/Output: Intake & Output 02/25/20 02/26/20 02/27/20 02/28/20 23:59 23:59 23:59 23:59 Intake Total 1100 3640 2230 Output Total 1000 Balance 1100 2640 2230 Meds/Results Medications: Active Medications Generic Name Dose Route Start Last Admin Trade Name Freq PRN Reason Stop Dose Admin Acetaminophen 500 mg 02/27/20 10:27 Tylenol Tablet PO QID PRN Mild Pain (1-3) Hydrocodone Bitart/Acetaminophen 1 tab 02/27/20 10:27 [place] 7.5-325 Mg PO Q6H PRN MODERATE PAIN 4-6 Donepezil HCl 10 mg 02/27/20 21:00 02/27/20 21:02 Aricept PO 10 mg HS AIMEE Administration Gabapentin 600 mg 02/27/20 21:00 02/27/20 21:02 Neurontin PO 600 mg HS AIMEE Administration Levothyroxine Sodium 150 mcg 02/27/20 06:30 02/28/20 09:42 Synthroid PO
[2020-02-28] MEDS: GABAPENTIN 300 MG CAPSULE 600 MG PO (20:36)
[2020-02-28] MEDS: TEMAZEPAM 15 MG CAPSULE PO (20:36)
[2020-02-28] MEDS: DONEPEZIL HCL 10 MG TABLET PO (20:36)
[2020-02-29 05:59] VITALS: BP 127/58; PULSE 60; RESP 20; TEMP 37; O2SAT 99
[2020-02-29 06:09] LABS: Basophils Percent Auto 0.7 % (0.2-1.2); Eosinophils Absolute Auto 0.3 K/mm3 (0-0.3); Eosinophils Percent Auto 5.4 % (0-4.4); Hematocrit 27.6 % (42.0-52.0); Hemoglobin 9.3 g/dL (14.0-18.0); Immature Granulocyte Absolute 0.01 K/mm3 (0.00-0.031); Immature Granulocyte Percent A 0.2 % (0-0.5); Lymphocytes Absolute Auto 1.87 K/mm3 (0.9-3.2); Lymphocytes Percent Auto 31.3 % (18.3-44.2); Mean Corpuscular HGB Conc 33.7 g/dl (32-36); Mean Corpuscular Volume 103.8 fl (80-100); Mean Platelet Volume 11.3 fl (7.4-10.4); Monocytes Absolute Auto 0.6 K/mm3 (0.1-0.6); Monocytes Percent Auto 10.1 % (2.6-8.5); Neutrophils Absolute Auto 3.1 K/mm3 (1.3-6.7); Neutrophils Percent Auto 52.3 % (45.5-73.1); Platelet Count Result 135 k/mm3 (150-375); Red Blood Count 2.66 M/mm3 (4.6-6.20); Red Cell Distribution Width 13.2 % (11.5-14.5)
--- NOTE | 2020-02-29 07:14 | WPDGIPROGNO ---
Progress Note: A&P Additional Plan patient feels good this morning. No additional bleeding noted. No recent bowel movement at all. He is up in the room ambulating without difficulty. He denies abdominal pain. Physical exam reveals Vital Signs be stable. Patient is alert comfortable at rest. Anicteric. Lungs are clear. Heart without murmur. Abdomen is soft nontender. Labs reveal hemoglobin 9.3, hematocrit 27.6, MCV 103. Stable at this time. Impression 1. Lower GI bleeding. Appears to been from diverticulosis. Now stopped. Small-bowel follow-through to exclude any more proximal lesions. Plan is for discharge with high-fiber diet. 2. Internal hemorrhoids. Identified at the time of colonoscopy. At this time not clinically significant but high-fiber diet may help this well . Plan is for early discharge if at all possible. Advance to high-fiber diet. Small-bowel follow-through today hopefully discharge afterwards. Subjective Date/time seen: 02/29/20 07:14 Objective Data Vital Signs Vital Signs: Vital Signs - 24 hr 02/28/20 07:48 02/28/20 08:44 02/28/20 08:54 Temperature 36.7 C Pulse Rate 59 L 68 60 Respiratory Rate 18 23 H 20 Blood Pressure 131/68 118/69 106/65 Pulse Oximetry 99 98 100 02/28/20 09:04 02/28/20 09:14 02/28/20 09:40 Temperature 36.6 C Pulse Rate 61 61 51 L Respiratory Rate 20 22 H 15 Blood Pressure 112/58 L 128/62 134/80 Pulse Oximetry 100 100 100 02/28/20 09:55 02/28/20 10:25 02/28/20 11:25 Temperature 36.6 C 36.6 C 36.5 C Pulse Rate 54 L 57 L 59 L Respiratory Rate 16 16 17 Blood Pressure 139/80 124/83 123/78 Pulse Oximetry 100 100 100 02/28/20 14:00 02/28/20 18:00 02/28/20 22:00 Temperature 36.9 C 36.9 C 36.6 C Pulse Rate 68 65 64 Respiratory Rate 16 16 20 Blood Pressure 138/63 115/72 131/74 Pulse Oximetry 100 99 100 02/29/20 05:59 Temperature 37.0 C Pulse Rate 60 Respiratory Rate 20 Blood Pressure 127/58 L Pulse Oximetry 99 Intake/Output Intake/Output: Intake & Output 02/26/20 02/27/20 02/28/20 02/29/20 23:59 23:59 23:59 23:59 Intake Total 1100 3640 3055 120 Output Total 1000 Balance 1100 2640 3055 120 Meds/Results Medications: Active Medications Generic Name Dose Route Start Last Admin Trade Name Freq PRN Reason Stop Dose Admin Acetaminophen 500 mg 02/27/20 10:27 Tylenol Tablet PO QID PRN Mild Pain (1-3) Hydrocodone Bitart/Acetaminophen 1 tab 02/27/20 10:27 [place] 7.5-325 Mg PO Q6H PRN MODERATE PAIN 4-6 Donepezil HCl 10 mg 02/27/20 21:00 02/28/20 20:36 Aricept PO 10 mg HS AIMEE Administration Gabapentin 600 mg 02/27/20 21:00 02/28/20 20:36 Neurontin PO 600 mg HS AIMEE Administration Levothyroxine Sodium 150 mcg 02/27/20 06:30 02/29/20 05:56 Synthroid PO Not Given DAILY@0630 AIMEE Lidocaine HCl 0.3 ml 02/28/20 07:31 Xylocaine 2% Local Inj INTRADERM ONCE PRN to numb area Oxycodone HCl 5 mg 02/27/20 10:27 Roxicodone Ir Tablet PO Q4-6H PRN SEVERE PAIN 7-10 Pantoprazole Sodium 40 mg 02/27/20 10:40 02/28/20 14:03 Protonix PO 03/29/20 09:01 40 mg DAILY AIMEE Administration Tamsulosin HCl 0.4 mg 02/27/20 09:00 02/28/20 09:42 Flomax PO 0.4 mg DAILY AIMEE Administration Temazepam 15 mg 02/27/20 21:00 02/28/20 20:36 Restoril PO 15 mg HS AIMEE Administration Radiology Results: ITS Impressions Abdomen/Pelvis CT 02/26/20 21:13 IMPRESSION: 1. No CT correlate for the patient's symptoms. Labs Labs: Laboratory Results - last 24 hr 02/29/20 05:43 WBC 6.0 RBC 2.66 L Hgb 9.3 L Hct 27.6 L MCV 103.8 H MCH 35.0 H MCHC 33.7 RDW 13.2 Plt Count 135 L MPV 11.3 H Immature Gran % (Auto) 0.2 Neut % (Auto) 52.3 Lymph % (Auto) 31.3 [place] % (Auto) 10.1 H Eos % (Auto) 5.4 H Baso % (Auto) 0.7 Lymph # (Auto) 1.87 [place] # (Auto) 0.6 Eos # (Auto) 0.3 Baso # (Auto) 0.0 Abs [place]
--- NOTE | 2020-02-29 08:00 | PC.NURSE ---
Pt to xray via wheelchair.
[2020-02-29 09:33] VITALS: BP 150/83; PULSE 63; RESP 18; TEMP 36.3; O2SAT 100
[2020-02-29] MEDS: TAMSULOSIN HCL 0.4 MG CAPSULE PO (09:49)
[2020-02-29] MEDS: PANTOPRAZOLE 40 MG TABLET PO (09:49)
--- NOTE | 2020-02-29 18:37 | PM.DS ---
DS: Admitting Diagnosis Admitting Diagnosis Admitting Diagnosis: Gastrointestinal hemorrhage, unspecified DS: Discharge Diagnosis Discharge Diagnosis (1) Acute lower GI bleeding: Code(s): K92.2 - Gastrointestinal hemorrhage, unspecified Status: Acute Assessment and Plan: Most likely diverticular bleeding especially with colonoscope revealing stigmata of bleeding but no active bleeding from diverticuli. Hemorrhoids also present Small-bowel follow-through no source of blood loss.. Hemoglobin down to 9.3 and discharge since no further active bleeding. CBC and visit with primary care in 2 weeks. Hold till 03/11 (2) Anemia: Code(s): D64.9 - Anemia, unspecified Status: Acute Assessment and Plan: Acute blood loss. Hemoglobin down to 9.3 but no active further bleeding at discharge (3) Diverticulosis: Code(s): K57.90 - Diverticulosis of intestine, part unspecified, without perforation or abscess without bleeding Status: Acute Assessment and Plan: Past history. Repeat colonoscope revealed scattered diverticuli with stigmata of recent bleeding but no active bleeding (4) BPH (benign prostatic hyperplasia): Code(s): N40.0 - Benign prostatic hyperplasia without lower urinary tract symptoms Status: Acute Assessment and Plan: Continue tamsulosin (5) Hypothyroid: Code(s): E03.9 - Hypothyroidism, unspecified Status: Acute Assessment and Plan: Recent thyroidectomy. TSH normal Calcium is normal DS: Summary Hospital Course Hospital Course: 74-year-old white male with history of diverticular disease admitted with bright red blood per stool is weakness lightheadedness. Over the course of hospitalization with hydration hemoglobin drifted down to 9.3 but did not have to be transfused. Colonoscope the stigmata of bleeding was diverticular disease but no active bleeding Small-bowel follow-through no evidence of any blood loss. Will follow up with primary care week and have cbc at that time. Hold aspirin until 03/11 Time Spent with Patient Time attestation: Total time spent providing and/or coordinating discharge services: 35 minutes Exam Narrative: Exam Narrative: Condition on discharge Blood pressure 150/82 pulse 62 sat 100% on room air Lungs clear CV regular rate rhythm Abdomen soft nontender Extremities without edema good distal pulses Neuro alert no focal deficits DS: Data Data Completed and Pending Labs on day of discharge: Labs from last 24 hours 02/29/20 05:43 WBC 6.0 RBC 2.66 L Hgb 9.3 L Hct 27.6 L MCV 103.8 H MCH 35.0 H MCHC 33.7 RDW 13.2 Plt Count 135 L MPV 11.3 H Immature Gran % (Auto) 0.2 Neut % (Auto) 52.3 Lymph % (Auto) 31.3 [place] % (Auto) 10.1 H Eos % (Auto) 5.4 H Baso % (Auto) 0.7 Lymph # (Auto) 1.87 [place] # (Auto) 0.6 Eos # (Auto) 0.3 Baso # (Auto) 0.0 Abs Immat Gran (auto) 0.01 Absolute Neuts (auto) 3.1 Absolute Nucleated RBC 0.0 Nucleated RBC % 0.0 Discharge Plan Discharge Attending physician on discharge: Gregory Tran Consulting providers: Wolfgang Serrano ; Grey Menendez Discharging Clinician: Gregory Tran Patient Disposition: Home, Self-Care Activity: as tolerated Diet: high fiber Patient Instructions: Antibiotic Form, High Fiber Diet (GEN), Diverticulosis Diet (GEN) Stand Alone Forms: General Discharge Information Follow-up/Referrals: Good,Santino Beebe MD [Primary Care Provider] - 2 Weeks Discharge Medications: Continued donepezil 5 mg tablet 10 mg PO HS RF: 0 temazepam 15 mg capsule 15 mg PO HS RF: 0 tamsulosin 0.4 mg capsule 0.4 mg PO DAILY RF: 0 levothyroxine 150 mcg tablet 150 mcg PO DAILY RF: 0 gabapentin 300 mg capsule 600 mg PO HS RF: 0 omeprazole 20 mg capsule,delayed release(DR/EC) 20 mg PO DAILY RF: 0 oxycodone 5 mg tablet 5 mg PO Q4-6H PRN (Reason: Pain) RF: 0 hy
== END 2020-02-29 12:33 | disposition home or self-care (01) | DRG 378 ==
LOC: ANHED 21:47 → ANH2MED 21:53
PROVIDERS: General Practice; Internal Medicine Gastroenterology; Admitting Provider Internal Medicine; Emergency Provider Emergency Medicine; PCP Internal Medicine Geriatric Medicine; Visit Provider Internal Medicine
PROC: 0DJD8ZZ Inspection of Lower Intestinal Tract, Via Natural or Artificial Opening Endoscopic (ICD-10-PCS; CPT 45378; principal; 2020-02-28 08:30)
DX: K57.31 Diverticulosis of large intestine without perforation or abscess with bleeding (principal); D62 Acute posthemorrhagic anemia; K64.8 Other hemorrhoids; N40.0 Benign prostatic hyperplasia without lower urinary tract symptoms; E89.0 Postprocedural hypothyroidism; G70.00 Myasthenia gravis without (acute) exacerbation; G31.84 Mild cognitive impairment of uncertain or unknown etiology; Z87.891 Personal history of nicotine dependence; Z79.82 Long term (current) use of aspirin; Z79.899 Other long term (current) drug therapy
CPT/HCPCS: 36415; 74177; 74250; 80048; 80053; 81001; 83690; 84443; 85014; 85018; 85025; 85610; 85730; 86850; 86900; 86901; 96361; 96374; 99285; A9270; G0378; J0131; J2704; J7030; J7120; Q9967

== ENCOUNTER → 2021-06-05 08:36 | Outpatient (CLI) | payer MEDICARE, SELFPAY ==
[2021-06-05 20:00] LABS: SARS-CoV-2 RNA PCR Negative
== END ==
PROVIDERS: PCP Nurse Practitioner; Visit Provider Family Medicine
DX: R68.89 Other general symptoms and signs (principal); Z20.822 Contact with and (suspected) exposure to COVID-19
CPT/HCPCS: C9803; U0003; U0005

== ENCOUNTER 2021-06-09 14:41 | Outpatient (CLI) | payer MEDICARE, SELFPAY ==
--- NOTE | ~2021-06-09 | XR_ITS ---
EXAMINATION: XR chest 2V DATE: 06/09/2021 15:25 INDICATION: Shortness of breath. Weight loss. TECHNIQUE: Frontal and lateral views of the chest were obtained. COMPARISON: Chest single view 02/14/20, CT abdomen and pelvis 02/26/2020 FINDINGS: There is a small hiatal hernia. There are surgical changes around the gastroesophageal junc tion. There are surgical clips in the neck. No pneumonia, pleural effusion, or pneumothorax. The hear t size is normal. IMPRESSION: 1. Small hiatal hernia with surgical changes. Reviewed, dictated and finalized at location A.
== END 2021-06-09 14:42 | disposition home or self-care (01) ==
PROVIDERS: PCP Nurse Practitioner; Visit Provider Nurse Practitioner
DX: R06.02 Shortness of breath (principal); R63.4 Abnormal weight loss; E03.9 Hypothyroidism, unspecified; K44.9 Diaphragmatic hernia without obstruction or gangrene
CPT/HCPCS: 71046

== ENCOUNTER 2023-05-20 07:10 | Outpatient (CLI) | payer MEDICARE, SELFPAY ==
[2023-05-20 08:12] LABS: Alanine Aminotransferase 24 U/L (6-50); Albumin Level 3.5 g/dL (3.5-5.1); Alkaline Phosphatase 88 U/L (38-126); Anion Gap 4 mmol/L (8-16); Aspartate Amino Transferase 21 U/L (17-59); Bilirubin,Total 0.4 mg/dL (0.2-1.3); Blood Urea Nitrogen 23 mg/dL (9-20); Carbon Dioxide 26 mmol/L (22-30); Chloride 108 mmol/L (98-107); Cholesterol 209 mg/dL (0-200); Estimated Glomerular Filt Rate > 60; Glucose 96 mg/dL (65-110); HDL Direct 55 mg/dL; Potassium 3.9 mmol/L (3.4-5.0); Sodium 138 mmol/L (137-145); Triglycerides 61 mg/dL (<150)
[2023-05-20 08:23] LABS: Basophils Percent Auto 0.5 % (0.2-1.2); Eosinophils Absolute Auto 0.3 K/mm3 (0-0.3); Eosinophils Percent Auto 3.5 % (0-4.4); Hematocrit 41.5 % (42.0-52.0); Hemoglobin 13.7 g/dL (14.0-18.0); Immature Granulocyte Absolute 0.09 K/mm3 (0.00-0.031); Immature Granulocyte Percent A 1.2 % (0-0.5); LDL Cholesterol Direct 104 mg/dL; Lymphocytes Absolute Auto 2.14 K/mm3 (0.9-3.2); Lymphocytes Percent Auto 28.8 % (18.3-44.2); Mean Corpuscular Hemoglobin 34.2 pg (26-34); Mean Corpuscular Volume 103.5 fl (80-100); Mean Platelet Volume 10.9 fl (7.4-10.4); Monocytes Absolute Auto 0.8 K/mm3 (0.1-0.6); Monocytes Percent Auto 11.3 % (2.6-8.5); Neutrophils Absolute Auto 4.1 K/mm3 (1.3-6.7); Neutrophils Percent Auto 54.7 % (45.5-73.1); Platelet Count Result 223 k/mm3 (150-375); Red Blood Count 4.01 M/mm3 (4.6-6.20); Red Cell Distribution Width 15.2 % (11.5-14.5); White Blood Count 7.4 K/mm3 (4.5-10.0)
[2023-05-20 08:34] LABS: Free T4 Free Thyroxine 1.54 ng/mL (0.78-2.19)
[2023-05-20 08:36] LABS: Creatinine Urine 97.3 mg/dL
[2023-05-20 08:39] LABS: Total Triiodothyronine (T3) 0.84 NG/ML (0.97-1.69)
[2023-05-20 08:58] LABS: MALB Creatinine Ratio < 6.2 mg/g (0-30); Microalbumin Urine Random < 6.0 mg/L (0-16.7)
[2023-05-20 11:48] LABS: Prostate Specific Antigen 2.6 ng/mL (< OR = 4.0)
[2023-05-20 12:19] LABS: Vitamin D 25 Hydroxy 81.4 ng/mL
[2023-05-24 14:53] LABS: Testosterone Total 343 ng/dL (250-1100)
[2023-05-26 04:47] LABS: FSH 25.4 mIU/mL (1.6-8.0); LH 7.8 mIU/mL (1.6-15.2)
[2023-05-26 20:25] LABS: Estradiol, Ultrasensitive 16 pg/mL (< OR = 29)
== END 2023-05-20 07:11 | disposition home or self-care (01) ==
PROVIDERS: PCP Nurse Practitioner; Visit Provider Nurse Practitioner Adult Health
DX: N52.9 Male erectile dysfunction, unspecified (principal); R53.1 Weakness; R53.83 Other fatigue; I10 Essential (primary) hypertension; E78.5 Hyperlipidemia, unspecified; K21.9 Gastro-esophageal reflux disease without esophagitis; Z12.5 Encounter for screening for malignant neoplasm of prostate; E55.9 Vitamin D deficiency, unspecified
CPT/HCPCS: 36415; 80053; 80061; 82043; 82306; 82670; 83001; 83002; 84153; 84402; 84403; 84439; 84443; 84480; 85025; G0103

== ENCOUNTER 2023-05-27 08:57 | Outpatient (CLI) | payer MEDICARE, SELFPAY ==
--- NOTE | 2023-05-27 12:08 | WPDPFTINT ---
PFT Procedure Performed PFT Procedure Performed Flow Vol Loop Spirometry w/o Bronchodil PFT Interpretation This is a pulmonary function test with spirometry, plethysmography and diffusing capacity. The test was performed and results interpreted in accordance with the 2019 and 2005 ATS/ERS Task Force guidelines respectively using the Global Lung Function Initiative-2012 reference equations. Patient demonstrated good effort and cooperation. Reproducibility criteria were met. The quality of the spirometry maneuver was Grade A. Findings: Spirometry: The contour the inspiratory and expiratory flow tracing are normal. The FVC is 2.56 L, 75% predicted. The FEV1 is 1.94 L, 76% predicted. The FEV1: FVC ratio 75%. Impression: The spirometry is normal without evidence of an obstructive abnormality. A restrictive ventilatory abnormality cannot be excluded as lung volumes were not measured. There are no prior studies for comparison
== END 2023-05-27 08:58 | disposition home or self-care (01) ==
PROVIDERS: PCP Nurse Practitioner; Visit Provider Nurse Practitioner Adult Health
DX: J45.998 Other asthma (principal)
CPT/HCPCS: 94375

== ENCOUNTER 2023-07-15 14:01 | Observation (INO) | payer MEDICARE, SELFPAY ==
[2023-07-15] VITALS (17 sets, daily range): BP systolic 149–184; BP diastolic 79–109; PULSE 52–71; RESP 8–22; TEMP 36.3–36.7; O2SAT 99–100; BMI 34.6
--- NOTE | ~2023-07-15 | US_ITS ---
EXAMINATION: US venous doppler [facility] DATE: 07/15/2023 18:28 INDICATION: Lower limb edema. TECHNIQUE: Grayscale ultrasound images without and with compression and Doppler ultrasound images of the bilateral lower extremity veins were obtained. COMPARISON: None. FINDINGS: The visualized portions of right common femoral vein, profunda (deep) femoral vein, femoral vein, pop liteal vein, peroneal veins, posterior tibial veins, and greater saphenous vein outflow are patent. The visualized portions of left common femoral vein, profunda femoral vein, femoral vein, popliteal v ein, peroneal veins, posterior tibial veins, and greater saphenous vein outflow are patent. IMPRESSION: 1. No deep venous thrombosis. Reviewed, dictated and finalized at location E.
--- NOTE | ~2023-07-15 | CT_ITS ---
EXAMINATION: CTA chest PE protocol DATE: 07/15/2023 22:01 INDICATION: Shortness of breath. TECHNIQUE: Computed tomography angiography (CTA) of the chest was performed with 100 mL Omnipaque-350 intravenous contrast timed to evaluate the pulmonary arteries. Coronal maximum intensity projection 3D-reconstructions were created by the technologist. Automated exposure control and iterative reconst ruction technique were employed. The dose-length product was 1344.94 mGy-cm. COMPARISON: CT abdomen and pelvis 02/26/2020 FINDINGS: The lungs demonstrate mild atelectasis. No pleural effusion. There is mucous plugging in th e lower lobes. The heart size is normal. No pericardial effusion. There are coronary artery calcifica tions. There are surgical clips around the distal esophagus and proximal stomach. There is fluid in t he esophagus, which is patulous distally. There is severe cervical and thoracic spondylosis. IMPRESSION: 1. No pulmonary embolus. Sensitivity is mildly decreased by motion artifact. Reviewed, dictated and finalized at location E.
--- NOTE | ~2023-07-15 | XR_ITS ---
Clinical Indication: CHF exacerbation AP and lateral views of the chest: Comparison: 06/09/2021 Findings: The lungs are clear, without evidence of focal consolidation or pleural effusion. Cardiome diastinal silhouette is within normal limits. Surgical clips over the mediastinum and base of neck ar e unchanged. Impression: Clear lungs. Reviewed, dictated and finalized at location . Impression: Clear lungs.
--- NOTE | 2023-07-15 14:02 | ECG_ITS ---
Measurements Intervals [place] Rate: 53 P: 51 CA: 175 QRS: -10 QRSD: 81 T: 60 QT: 426 QTc: 403 Interpretive Statements SINUS BRADYCARDIA MODERATE VOLTAGE CRITERIA FOR LVH, CONSIDER NORMAL VARIANT [MEETS CRITERIA IN ONE OF: R(aVL), S(V1), R(V5), R(V5/V6)+S(V1)] NONSPECIFIC T-WAVE ABNORMALITY NO PREVIOUS ECG AVAILABLE FOR COMPARISON Electronically Signed On 07-16-2023 14:08:42 CDT by Stephy Benitez M.D.
[2023-07-15 14:21] LABS: Basophils Absolute Auto 0.1 K/mm3 (0.0-0.1); Basophils Percent Auto 1.2 % (0.2-1.2); Eosinophils Percent Auto 13.9 % (0-4.4); Immature Granulocyte Absolute 0.02 K/mm3 (0.00-0.031); Immature Granulocyte Percent A 0.3 % (0-0.5); Lymphocytes Absolute Auto 2.25 K/mm3 (0.9-3.2); Lymphocytes Percent Auto 32.8 % (18.3-44.2); Mean Corpuscular HGB Conc 32.6 g/dl (32-36); Mean Corpuscular Hemoglobin 34.6 pg (26-34); Mean Corpuscular Volume 106.2 fl (80-100); Mean Platelet Volume 10.8 fl (7.4-10.4); Monocytes Absolute Auto 0.8 K/mm3 (0.1-0.6); Neutrophils Absolute Auto 2.7 K/mm3 (1.3-6.7); Neutrophils Percent Auto 39.8 % (45.5-73.1); Platelet Count Result 188 k/mm3 (150-375); Red Blood Count 4.05 M/mm3 (4.6-6.20); Red Cell Distribution Width 14.2 % (11.5-14.5); White Blood Count 6.9 K/mm3 (4.5-10.0)
[2023-07-15 14:31] LABS: Alanine Aminotransferase 24 U/L (6-50); Albumin Level 3.9 g/dL (3.5-5.1); Alkaline Phosphatase 83 U/L (38-126); Anion Gap 5 mmol/L (8-16); Aspartate Amino Transferase 22 U/L (17-59); Bilirubin,Total 0.7 mg/dL (0.2-1.3); Blood Urea Nitrogen 20 mg/dL (9-20); Calcium 8.9 mg/dL (8.4-10.2); Carbon Dioxide 26 mmol/L (22-30); Chloride 107 mmol/L (98-107); Estimated Glomerular Filt Rate > 60; Glucose 104 mg/dL (65-110); Potassium 3.9 mmol/L (3.4-5.0); Sodium 138 mmol/L (137-145)
[2023-07-15 14:32] LABS: Prothrombin Time 13.4 Seconds (11.1-14.7)
[2023-07-15 14:33] LABS: Partial Thromboplastin Time 32.5 SECONDS (22.3-36.8)
[2023-07-15 14:36] LABS: Anisocytosis 1+ (NORMAL); Macrocytosis 2+ (NORMAL); Platelet Estimate Adequate (Adequate); Schistocytes None Seen (NORMAL)
[2023-07-15 14:43] LABS: NT Pro B Type Natriuretic Pept 31 pg/mL (19.9-100); Troponin I < 0.012 ng/mL (0.000-0.034)
--- NOTE | 2023-07-15 17:31 | ED.SOB ---
HPI - SOB/Dyspnea General Chief Complaint: Shortness of Breath/Dyspnea <Becky Ireland PA-C - Last Filed: 07/15/23 22:25> Stated Complaint: CHF exacerbation from Dr. Serrano's office <Becky Ireland PA-C - Last Filed: 07/15/23 22:25> Time Seen by Provider: 07/15/23 17:14 <RICK Burns Last Filed: 07/15/23 22:25> Source: patient <RICK Burns Last Filed: 07/15/23 22:25> Mode of arrival: ambulatory <RICK Burns Last Filed: 07/15/23 22:25> Limitations: no limitations <RICK Burns Last Filed: 07/15/23 22:25> History of Present Illness HPI Narrative: This is a 77-year-old male that presents to the emergency department for shortness of breath. Reports worsening over the last month. Associated with lower extremity edema. Also reports wheezing. Reports history of asthma. He takes albuterol as needed for this. He has been trying to use his albuterol with little relief. Does report a productive cough. Denies fevers or chest pain. <Becky Ireland PA-C - Last Filed: 07/15/23 22:25> Related Data Home Medications: Home Medications Medication Instructions Recorded Confirmed docusate sodium 100 mg capsule 100 mg PO DAILY PRN Constipation 02/26/20 07/15/23 (Colace) omeprazole 20 mg capsule,delayed 20 mg PO DAILY 02/26/20 07/15/23 release tamsulosin 0.4 mg capsule 0.4 mg PO HS 02/26/20 07/15/23 tizanidine 2 mg capsule 2 mg PO QHS 02/11/21 07/15/23 albuterol sulfate 90 mcg/actuation 1 - 2 puff inhalation Q4H PRN 07/15/23 07/15/23 aerosol inhaler shortnes of breath cetirizine 10 mg tablet 10 mg PO DAILY 07/15/23 07/15/23 diclofenac sodium 50 mg 50 mg PO BID PRN Pain 07/15/23 07/15/23 tablet,delayed release donepezil 10 mg tablet 10 mg PO HS 07/15/23 07/15/23 gabapentin 100 mg capsule 200 mg PO TID 07/15/23 07/15/23 levothyroxine 150 mcg tablet 150 mcg PO DAILY 07/15/23 07/15/23 melatonin 10 mg tablet 10 mg PO HS 07/15/23 07/15/23 mirtazapine 7.5 mg tablet 7.5 mg PO HS 07/15/23 07/15/23 oxybutynin chloride 15 mg 15 mg PO HS 07/15/23 07/15/23 tablet,extended release 24 hr trazodone 50 mg tablet 25 - 50 mg PO HS 07/15/23 07/15/23 <Becky Ireland PA-C - Last Filed: 07/15/23 22:25> Allergies/Adverse Reactions: Allergies Allergy/AdvReac Type Severity Reaction Status Date / Time No Known Allergies Allergy Unverified 05/20/21 08:43 <Becky Ireland PA-C - Last Filed: 07/15/23 22:25> Review of Systems Review of Systems: CONSTITUTIONAL: Denies fever CARDIOVASCULAR: Reports edema. Denies chest pain RESPIRATORY: Reports cough and dyspnea. <Becky Ireland PA-C - Last Filed: 07/15/23 22:25> All systems reviewed & are unremarkable except as noted in HPI and below <Becky Ireland PA-C - Last Filed: 07/15/23 22:25> [facility] Past Medical History Medical History: Medical History Acute GI bleeding Acute lower GI bleeding Anemia Arthritis BPH (benign prostatic hyperplasia) Chronic a-fib Dementia Diverticulitis Diverticulosis DVT prophylaxis GERD (gastroesophageal reflux disease) Hypothyroid Myasthenia gravis <RICK Burns Last Filed: 07/15/23 22:25> Surgical History Surgical History: Surgical History H/O arthroscopic knee surgery H/O thyroidectomy <RICK Burns Last Filed: 07/15/23 22:25> Family History Family History: Family History Mother , age 85 Acute myocardial infarction Hypertension Heart disease Father , age 70 Acute myocardial infarction Chronic obstructive pulmonary disease History of blood clots Hypertension Heart disease Sibling Acute myocardial infarction Hypertension Heart disease Other Heart disease <Becky Ireland PA-C -
[2023-07-15] MEDS: IPRATROPIUM BR 0.02% INH SOLN 0.5 MG/2.5 ML VIAL INHALATION (17:35)
[2023-07-15] MEDS: ALBUTEROL SULFATE NEB 2.5 MG/3 ML INH INHALATION (17:35)
[2023-07-15] MEDS: methylPREDNISolone SOD SUCC 125 MG VIAL IV PUSH (17:42)
[2023-07-15] MEDS: ALBUTEROL SULFATE NEB 2.5 MG/3 ML INH 15 MG INHALATION (18:38)
[2023-07-15] MEDS: IPRATROPIUM BR 0.02% INH SOLN 0.5 MG/2.5 ML VIAL 1.5 MG INHALATION (18:39)
[2023-07-15 20:54] LABS: Influenza A QL RT-PCR Negative (Negative); Influenza B QL RT-PCR Negative (Negative); SARS-CoV-2 RNA PCR Negative (Negative)
[2023-07-15 21:18] LABS: D Dimer 0.87 ug/mL (<0.48)
--- NOTE | 2023-07-15 22:00 | PC.NURSE ---
Pt to CT scan via stretcher at this time.
--- NOTE | 2023-07-15 22:40 | ADMGEN ---
This patient, Abrahan Gtz Jr., was admitted to Medical Room 243-01. Patient/family oriented to hospital policies and general routines including ID bracelet, bed and alarms, visiting hours, pain management, procedures, bathroom and other care routines, personal items, smoking policy, room service/diet, and visiting hours. Information on how to activate the Rapid Response Team has been discussed. Patient/Family are encouraged to report perceived risks to care and to ask questions if they do not understand what they are told or what they should do.
[2023-07-15] MEDS: methylPREDNISolone SOD SUCC 125 MG VIAL 60 MG IV PUSH (23:37)
[2023-07-16] VITALS (11 sets, daily range): BP systolic 141–158; BP diastolic 75–84; PULSE 62–84; RESP 14–20; TEMP 36.1–36.8; O2SAT 94–98
[2023-07-16] MEDS: ALBUTEROL SULFATE NEB 2.5 MG/3 ML INH INHALATION ×4 (02:44→20:22)
[2023-07-16] MEDS: IPRATROPIUM BR 0.02% INH SOLN 0.5 MG/2.5 ML VIAL INHALATION ×4 (02:44→20:22)
[2023-07-16] MEDS: methylPREDNISolone SOD SUCC 125 MG VIAL 60 MG IV PUSH ×4 (05:54→23:02)
[2023-07-16] MEDS: LEVOTHYROXINE SODIUM 150 MCG TABLET PO (08:05)
[2023-07-16] MEDS: PANTOPRAZOLE 40 MG TABLET PO (08:05)
[2023-07-16] MEDS: LORATADINE 10 MG TABLET PO (08:06)
[2023-07-16] MEDS: GABAPENTIN 100 MG CAPSULE 200 MG PO ×3 (08:06→17:05)
--- NOTE | 2023-07-16 10:57 | PM.IMHP ---
H&P: HPI History of Present Illness Date/Time: 07/16/23 10:57 Chief Complaint: This is a 77-year-old male that presents to the emergency department for shortness of breath.? Reports worsening over the last month.? Associated with lower extremity edema.? Also reports wheezing.? Reports history of asthma.? He takes albuterol as needed for this.? He has been trying to use his albuterol with little relief.? Does report a productive cough.? Denies fevers or chest pain Review of Systems Review of Systems: CONSTITUTIONAL: Denies fever CARDIOVASCULAR: Reports edema. Denies chest pain RESPIRATORY: Reports cough and dyspnea. All systems reviewed & are unremarkable except as noted in HPI and below PMFSH Past Medical History Medical History Acute GI bleeding Acute lower GI bleeding Anemia Arthritis BPH (benign prostatic hyperplasia) Chronic a-fib Dementia Diverticulitis Diverticulosis DVT prophylaxis GERD (gastroesophageal reflux disease) Hypothyroid Myasthenia gravis Surgical History Surgical History H/O arthroscopic knee surgery H/O thyroidectomy Family History Family History Mother , age 85 Acute myocardial infarction Hypertension Heart disease Father , age 70 Acute myocardial infarction Chronic obstructive pulmonary disease History of blood clots Hypertension Heart disease Sibling Acute myocardial infarction Hypertension Heart disease Other Heart disease Social History Social History Social History: 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[employer], 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 [employer], 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 3 children living and well Smoking packs per day: 1 Smoking cigarettes per day: 20.0 Years smoked: 4 Smoking pack-years: 4.00 Smoking status: Former smoker Alcohol intake: current Drinks per week: 2 Substance use: never Substance use type: does not use Lack of Transportation: No Lack of Food: Never True Current Housing: I Have Housing Concerned About Future Housing: No Difficulty Paying Gas/Electric Bills: No Difficulty Paying for Meds: No Currently Unemployed: No Education: Don't Know Difficulty w/ Childcare or Family Care: No Living arrangements: with family Gender identity (if verbalized by the patient): Male Spiritual care concerns: No Meds Home Medications and Allergies Home Medications Medication Instructions Recorded Confirmed Type docusate sodium 100 mg capsule 100 mg PO DAILY PRN Constipation 02/26/20 07/15/23 History (Colace) omeprazole 20 mg capsule,delayed 20 mg PO DAILY 02/26/20 07/15/23 History release tamsulosin 0.4 mg capsule 0.4 mg PO HS 02/26/20 07/15/23 History tizanidine 2 mg capsule 2 mg PO QHS 02/11/21 07/15/23 History albuterol sulfate 90 mcg/actuation 1 - 2 puff inhalation Q4H PRN 07/15/23 07/15/23 History aerosol inhaler shortnes of breath cetirizine 10 mg tablet 10 mg PO DAILY 07/15/23 07/15/23 History diclofenac sodium 50 mg 50 mg PO BID PRN Pain 07/15/23 07/15/23 History tablet,delayed release donepezil 10 mg tablet 10 mg PO HS 07/15/23 07/15/23 History gabapentin 100 mg capsule 200 mg PO TID 07/15/23 07/15/23 History levothyroxine 150 mcg tablet 150 mcg PO DAILY 07/15/23 07/15/23 History melatonin 10 mg tablet 10 mg PO HS 07/15/23 07/15/23 History mirtazapine 7.5 mg tablet 7.5 mg PO HS 07/15/23 07/15/23 History oxybutynin chloride 15 mg 15 mg PO HS 07/15/23 07/15/23 History tablet,extended release 24 hr trazodone 50 mg tablet 25 - 50 mg PO HS 07/15/23 07/15/23 History Allergies Allergy/AdvReac Type Severity Reaction Status Date / Time No Known Allergies Allergy Unverified 05/20/21 08:43 Vital Signs Natalya
[2023-07-16] MEDS: FUROSEMIDE INJ 40 MG/4 ML VIAL IV PUSH (11:36)
[2023-07-16] MEDS: TAMSULOSIN HCL 0.4 MG CAPSULE PO (20:34)
[2023-07-16] MEDS: MELATONIN 5 MG TABLET 10 MG PO (20:35)
[2023-07-16] MEDS: TIZANIDINE HCL 2 MG TABLET PO (20:35)
[2023-07-16] MEDS: oxyBUTYnin CHLORIDE XL 5 MG TAB.ER.24 15 MG PO (20:35)
[2023-07-16] MEDS: DONEPEZIL HCL 10 MG TABLET PO (20:35)
[2023-07-16] MEDS: MIRTAZAPINE 7.5 MG TABLET PO (20:35)
[2023-07-16] MEDS: traZODone HCL 25 MG TABLET PO (20:36)
[2023-07-17] VITALS (11 sets, daily range): BP systolic 121–134; BP diastolic 68–75; PULSE 68–83; RESP 14–20; TEMP 36.1–36.6; O2SAT 95–99
[2023-07-17] MEDS: ALBUTEROL SULFATE NEB 2.5 MG/3 ML INH INHALATION ×4 (02:14→20:06)
[2023-07-17] MEDS: IPRATROPIUM BR 0.02% INH SOLN 0.5 MG/2.5 ML VIAL INHALATION ×4 (02:14→20:07)
[2023-07-17] MEDS: LEVOTHYROXINE SODIUM 150 MCG TABLET PO (05:30)
[2023-07-17] MEDS: methylPREDNISolone SOD SUCC 125 MG VIAL 60 MG IV PUSH ×3 (05:30→18:04)
[2023-07-17] MEDS: PANTOPRAZOLE 40 MG TABLET PO (09:16)
[2023-07-17] MEDS: GABAPENTIN 100 MG CAPSULE 200 MG PO ×3 (09:16→18:04)
[2023-07-17] MEDS: LORATADINE 10 MG TABLET PO (09:16)
--- NOTE | 2023-07-17 11:49 | PM.IMPN ---
Progress Note: A&P Assessment and Plan (1) Wheezing: Code(s): R06.2 - Wheezing Status: Acute Assessment and Plan: continue current nebs continue steroids doing better (2) Hypothyroid: Code(s): E03.9 - Hypothyroidism, unspecified Status: Acute Subjective Date/time seen: 07/17/23 11:49 Interval history: No complaints Review of Systems Review of Systems: CONSTITUTIONAL: Denies fever CARDIOVASCULAR: Reports edema. Denies chest pain RESPIRATORY: Reports cough and dyspnea. All systems reviewed & are unremarkable except as noted in HPI and below Exam Narrative: GENERAL: Elderly, well-nourished, and in no acute distress. HEAD: Normocephalic, atraumatic. EYES: EOMI. ENT: Nares clear, no rhinorrhea or epistaxis. Mucous membranes moist. Oropharynx without tonsillar hypertrophy exudate or other lesions. Bilateral TMs pearly harper non-bulging NECK: Supple. No adenopathy or masses. CHEST: No respiratory distress. Diffuse expiratory wheezing. No rales or rhonchi HEART: Regular rate and rhythm. No murmur heard. Normal peripheral pulses. ABDOMEN: Soft, nontender, nondistended, normal active bowel sounds. EXTREMITIES: Normal range of motion. 2+ pitting edema to the bilateral lower extremities. Normal DP pulses. No erythema or warmth SKIN: Warm, dry, no rash. NEURO: No focal deficits. Alert and oriented x3. PSYCH: Normal mood and affect Objective Data Vital Signs Vital Signs: Vital Signs - 24 hr 07/16/23 13:31 07/16/23 14:00 07/16/23 19:36 Temperature 97.8 F 98.2 F Pulse Rate 72 84 79 Respiratory Rate 18 14 20 Blood Pressure 141/75 H 158/84 H Pulse Oximetry 98 97 Oxygen Delivery Fraction of Inspired Oxygen 07/16/23 20:22 07/16/23 20:26 07/16/23 20:33 Temperature Pulse Rate 73 73 71 Respiratory Rate 18 18 Blood Pressure Pulse Oximetry 94 Oxygen Delivery Room Air Fraction of Inspired Oxygen 21 07/17/23 02:15 07/17/23 02:25 07/17/23 04:58 Temperature 97 F L Pulse Rate 69 70 68 Respiratory Rate 18 18 18 Blood Pressure 134/75 Pulse Oximetry 99 Oxygen Delivery Fraction of Inspired Oxygen Intake/Output Intake/Output: Intake & Output 07/14/23 07/15/23 07/16/23 07/17/23 23:59 23:59 23:59 23:59 Intake Total 1260 640 Output Total 2750 600 Balance -1490 40 Meds/Results Medications: Active Medications Generic Name Dose Route Start Last Admin Trade Name Freq PRN Reason Stop Dose Admin Albuterol 2.5 mg 07/16/23 02:00 07/17/23 02:14 Albuterol Sulfate Neb 2.5 Mg/3 Ml Inh INHALATION 2.5 mg Q6HRT AIMEE Administration Diclofenac Sodium 50 mg 07/16/23 07:40 Diclofenac Sod 25 Mg Tablet.Ec PO BID PRN Pain Docusate Sodium 100 mg 07/16/23 07:40 Docusate Sodium 100 Mg Capsule PO DAILY PRN Constipation Donepezil HCl 10 mg 07/16/23 21:00 07/16/23 20:35 Donepezil Hcl 10 Mg Tablet PO 10 mg HS IAMEE Administration Gabapentin 200 mg 07/16/23 09:00 07/17/23 09:16 Gabapentin 100 Mg Capsule PO 200 mg TID AIMEE Administration Ipratropium [place] 0.5 mg 07/16/23 02:00 07/17/23 02:14 Ipratropium Br 0.02% Inh Soln 0.5 Mg/2.5 Ml Vial INHALATION 0.5 mg Q6HRT AIMEE Administration Levothyroxine Sodium 150 mcg 07/16/23 08:00 07/17/23 05:30 Levothyroxine Sodium 150 Mcg Tablet PO 150 mcg DAILY@0630 AIMEE Administration Loratadine 10 mg 07/16/23 09:00 07/17/23 09:16 Loratadine 10 Mg Tablet PO 10 mg QAM AIMEE Administration Melatonin 10 mg 07/16/23 21:00 07/16/23 20:35 Melatonin 5 Mg Tablet PO 10 mg HS AIMEE Administration Methylprednisolone Sodium Succinate 60 mg 07/16/23 00:00 07/17/23 05:30 Methylprednisolone Sod Succ 125 Mg Vial IV PUSH 60 mg Q6HR AIMEE Administration Mirtazapine 7.5 mg 07/16/23 21:00 07/16/23 20:35 Mirtazapine 7.5 Mg Tablet PO 7.5 mg HS AIMEE Administration Oxybutynin Chloride 15 mg 07/16/23 21:0
[2023-07-17] MEDS: DOCUSATE SODIUM 100 MG CAPSULE PO (18:05)
[2023-07-17] MEDS: BUDESONIDE RESPULE NEB 0.5 MG/2 ML AMP INHALATION (20:07)
[2023-07-17] MEDS: traZODone HCL 25 MG TABLET PO (20:49)
[2023-07-17] MEDS: MELATONIN 5 MG TABLET 10 MG PO (20:49)
[2023-07-17] MEDS: MIRTAZAPINE 7.5 MG TABLET PO (20:50)
[2023-07-17] MEDS: TIZANIDINE HCL 2 MG TABLET PO (20:50)
[2023-07-17] MEDS: DONEPEZIL HCL 10 MG TABLET PO (20:50)
[2023-07-17] MEDS: oxyBUTYnin CHLORIDE XL 5 MG TAB.ER.24 15 MG PO (20:50)
[2023-07-17] MEDS: TAMSULOSIN HCL 0.4 MG CAPSULE PO (20:50)
[2023-07-18] VITALS (11 sets, daily range): BP systolic 136–153; BP diastolic 76–82; PULSE 56–86; RESP 16–20; TEMP 36.4–36.7; O2SAT 95–100
[2023-07-18] MEDS: methylPREDNISolone SOD SUCC 125 MG VIAL 60 MG IV PUSH ×4 (00:05→16:57)
[2023-07-18] MEDS: ALBUTEROL SULFATE NEB 2.5 MG/3 ML INH INHALATION ×4 (02:23→20:07)
[2023-07-18] MEDS: IPRATROPIUM BR 0.02% INH SOLN 0.5 MG/2.5 ML VIAL INHALATION ×4 (02:23→20:07)
[2023-07-18] MEDS: LEVOTHYROXINE SODIUM 150 MCG TABLET PO (06:25)
[2023-07-18] MEDS: LORATADINE 10 MG TABLET PO (08:39)
[2023-07-18] MEDS: PANTOPRAZOLE 40 MG TABLET PO (08:39)
[2023-07-18] MEDS: GABAPENTIN 100 MG CAPSULE 200 MG PO ×3 (08:39→16:57)
[2023-07-18] MEDS: BUDESONIDE RESPULE NEB 0.5 MG/2 ML AMP INHALATION ×2 (10:24→20:07)
--- NOTE | 2023-07-18 10:38 | PM.IMPN ---
Progress Note: A&P Assessment and Plan (1) Wheezing: Code(s): R06.2 - Wheezing Status: Acute Assessment and Plan: continue current nebs continue steroids doing better (2) Hypothyroid: Code(s): E03.9 - Hypothyroidism, unspecified Status: Acute Subjective Date/time seen: 07/18/23 10:38 Interval history: no n ew complaints Exam Narrative: GENERAL: Elderly, well-nourished, and in no acute distress. HEAD: Normocephalic, atraumatic. EYES: EOMI. ENT: Nares clear, no rhinorrhea or epistaxis. Mucous membranes moist. Oropharynx without tonsillar hypertrophy exudate or other lesions. Bilateral TMs pearly harper non-bulging NECK: Supple. No adenopathy or masses. CHEST: No respiratory distress. Diffuse expiratory wheezing. No rales or rhonchi HEART: Regular rate and rhythm. No murmur heard. Normal peripheral pulses. ABDOMEN: Soft, nontender, nondistended, normal active bowel sounds. EXTREMITIES: Normal range of motion. 2+ pitting edema to the bilateral lower extremities. Normal DP pulses. No erythema or warmth SKIN: Warm, dry, no rash. NEURO: No focal deficits. Alert and oriented x3. PSYCH: Normal mood and affect Objective Data Vital Signs Vital Signs: Vital Signs - 24 hr 07/17/23 14:00 07/17/23 15:20 07/17/23 15:20 Temperature 97.9 F Pulse Rate 70 83 83 Respiratory Rate 20 18 18 Blood Pressure 132/73 Pulse Oximetry 98 96 Oxygen Delivery Room Air Fraction of Inspired Oxygen 07/17/23 15:30 07/17/23 20:10 07/17/23 20:11 Temperature Pulse Rate 81 78 Respiratory Rate 18 18 Blood Pressure Pulse Oximetry 95 Oxygen Delivery Room Air Fraction of Inspired Oxygen 07/17/23 22:22 07/17/23 20:00 07/17/23 20:20 Temperature 97.8 F Pulse Rate 75 75 82 Respiratory Rate 14 14 18 Blood Pressure 121/68 Pulse Oximetry 95 95 Oxygen Delivery Room Air Fraction of Inspired Oxygen 21 07/18/23 02:24 07/18/23 05:53 07/18/23 10:20 Temperature 97.5 F L Pulse Rate 77 60 72 Respiratory Rate 18 16 18 Blood Pressure 145/76 H Pulse Oximetry 100 Oxygen Delivery Fraction of Inspired Oxygen 07/18/23 08:00 Temperature Pulse Rate Respiratory Rate Blood Pressure Pulse Oximetry Oxygen Delivery Room Air Fraction of Inspired Oxygen Intake/Output Intake/Output: Intake & Output 07/15/23 07/16/23 07/17/23 07/18/23 23:59 23:59 23:59 23:59 Intake Total 1260 1055 540 Output Total 2750 1350 700 Balance -6316 -707 -821 Meds/Results Medications: Active Medications Generic Name Dose Route Start Last Admin Trade Name Freq PRN Reason Stop Dose Admin Albuterol 2.5 mg 07/16/23 02:00 07/18/23 10:23 Albuterol Sulfate Neb 2.5 Mg/3 Ml Inh INHALATION 2.5 mg Q6HRT AIMEE Administration Budesonide 0.5 mg 07/17/23 20:00 07/18/23 10:24 Budesonide Respule Neb 0.5 Mg/2 Ml Amp INHALATION 0.5 mg Q12HRT AIMEE Administration Diclofenac Sodium 50 mg 07/16/23 07:40 Diclofenac Sod 25 Mg Tablet.Ec PO BID PRN Pain Docusate Sodium 100 mg 07/16/23 07:40 07/17/23 18:05 Docusate Sodium 100 Mg Capsule PO 100 mg DAILY PRN Administration Constipation Donepezil HCl 10 mg 07/16/23 21:00 07/17/23 20:50 Donepezil Hcl 10 Mg Tablet PO 10 mg HS AIMEE Administration Gabapentin 200 mg 07/16/23 09:00 07/18/23 08:39 Gabapentin 100 Mg Capsule PO 200 mg TID AIMEE Administration Ipratropium Normanna 0.5 mg 07/16/23 02:00 07/18/23 10:23 Ipratropium Br 0.02% Inh Soln 0.5 Mg/2.5 Ml Vial INHALATION 0.5 mg Q6HRT AIMEE Administration Levothyroxine Sodium 150 mcg 07/16/23 08:00 07/18/23 06:25 Levothyroxine Sodium 150 Mcg Tablet PO 150 mcg DAILY@0630 AIMEE Administration Loratadine 10 mg 07/16/23 09:00 07/18/23 08:39 Loratadine 10 Mg Tablet PO 10 mg QAM AIMEE Administration Melatonin 10 mg 07/16/23 21:00 07/17/23 20:49 Melatonin 5 Mg Tablet PO 10 mg HS AIMEE Adm
[2023-07-18] MEDS: MELATONIN 5 MG TABLET 10 MG PO (20:42)
[2023-07-18] MEDS: TAMSULOSIN HCL 0.4 MG CAPSULE PO (20:42)
[2023-07-18] MEDS: traZODone HCL 25 MG TABLET PO (20:42)
[2023-07-18] MEDS: TIZANIDINE HCL 2 MG TABLET PO (20:42)
[2023-07-18] MEDS: oxyBUTYnin CHLORIDE XL 5 MG TAB.ER.24 15 MG PO (20:42)
[2023-07-18] MEDS: DONEPEZIL HCL 10 MG TABLET PO (20:42)
[2023-07-18] MEDS: MIRTAZAPINE 7.5 MG TABLET PO (20:42)
[2023-07-19] VITALS (12 sets, daily range): BP systolic 133–155; BP diastolic 76–80; PULSE 54–70; RESP 16–20; TEMP 36.4–36.6; O2SAT 94–100
--- NOTE | 2023-07-19 | ECHO_ITS ---
Patient Info Name: Abrahan Gtz Age: 77 years : 1945 Gender: Male Ht: 70 in Wt: 241 lbs BSA: 2.36 m2 HR: 69 bpm BP: 155 / 80 mmHg Heart Rhythm: Sinus Rhythm Technical Quality: Fair Exam Date: 07/19/2023 3:22 PM Exam Location: [facility] Pulmonary Exam Room: 243 Patient Status: Inpatient Admit Date: 07/15/2023 Staff Ordering Physician: Dhruv Kuo MD Pediatric Registered Nurse: Amie Bender RDCS Attending Provider: Silvia Fowler DO Referring Physician: Ayaan DUBON; Exam Type: CA echo doppler color flow Study Info Indications - dysapnea Complete two-dimensional, color flow and Doppler transthoracic echocardiogram is performed. Summary 1. Complete two-dimensional, color flow and Doppler transthoracic echocardiogram is performed. 2. Left ventricular chamber dimension is normal. 3. Left ventricular systolic function is normal, estimated at 60-65%. 4. There is mildly increased left ventricular wall thickness. 5. The left ventricular diastolic function is grade I diastolic dysfunction. 6. Left atrial chamber dimension is mildly enlarged. 7. There is moderate aortic valve calcification. 8. Cannot rule out aortic valve vegetation visualized. 9. There is mild mitral valve regurgitation. 10. There is mild tricuspid valve regurgitation. 11. There is mild pulmonic regurgitation. Left Ventricle Left ventricular chamber dimension is normal. Left ventricular systolic function is normal, estimated at 60-65%. There is mildly increased left ventricular wall thickness. The left ventricular diastolic function is grade I diastolic dysfunction. Right Ventricle Right ventricular chamber dimension is normal. Right ventricular systolic function is normal. Left Atria Left atrial chamber dimension is mildly enlarged. Right Atria Right atrial chamber dimension is normal. Atrial Septum Intact interatrial septum visualized by color flow imaging. Aortic Valve The aortic valve is trileaflet. There is no aortic valve stenosis. There is trace aortic valve regurgitation. Cannot rule out aortic valve vegetation visualized. There is moderate aortic valve calcification. Pulmonic Valve The pulmonic valve is normal. There is no pulmonic valve stenosis. There is mild pulmonic regurgitation. Mitral Valve The mitral valve has normal leaflets. There is no mitral valve stenosis. There is mild mitral valve regurgitation. Tricuspid Valve The tricuspid valve leaflets are normal. There is no significant tricuspid valve stenosis. There is mild tricuspid valve regurgitation. No pulmonary hypertension, estimated pulmonary arterial systolic pressure is 33 mmHg. Pericardium/Pleural The pericardium appears normal. There is no pericardial effusion. Inferior Vena Cava Normal inferior vena cava with >50% collapse upon inspiration consistent with normal right atrial pressure, 10 mmHg. Aorta The aortic root size at the sinus of Valsalva is normal. Left Ventricular Outflow Tract Name Value Normal LVOT 2D LVOT Diameter 2.1 cm LVOT Doppler LVOT Peak Gradient 6 mmHg LVOT Mean Gradient 3 mmHg LVOT VTI 28 cm
[2023-07-19] MEDS: methylPREDNISolone SOD SUCC 125 MG VIAL 60 MG IV PUSH ×2 (00:17→06:06)
[2023-07-19] MEDS: ALBUTEROL SULFATE NEB 2.5 MG/3 ML INH INHALATION ×4 (01:40→19:46)
[2023-07-19] MEDS: IPRATROPIUM BR 0.02% INH SOLN 0.5 MG/2.5 ML VIAL INHALATION ×4 (01:41→19:46)
[2023-07-19] MEDS: LEVOTHYROXINE SODIUM 150 MCG TABLET PO (06:06)
[2023-07-19] MEDS: BUDESONIDE RESPULE NEB 0.5 MG/2 ML AMP INHALATION ×2 (07:52→19:45)
[2023-07-19] MEDS: PANTOPRAZOLE 40 MG TABLET PO (08:26)
[2023-07-19] MEDS: GABAPENTIN 100 MG CAPSULE 200 MG PO ×3 (08:26→17:09)
[2023-07-19] MEDS: LORATADINE 10 MG TABLET PO (08:26)
[2023-07-19 08:54] LABS: Anion Gap 5 mmol/L (8-16); Blood Urea Nitrogen 31 mg/dL (9-20); Calcium 8.6 mg/dL (8.4-10.2); Carbon Dioxide 26 mmol/L (22-30); Chloride 106 mmol/L (98-107); Estimated CRCL calculation 67 ml/min; Estimated Glomerular Filt Rate > 60; Glucose 140 mg/dL (65-110); Potassium 4.3 mmol/L (3.4-5.0); Sodium 137 mmol/L (137-145)
--- NOTE | 2023-07-19 10:29 | PM.IMPN ---
Progress Note: A&P Assessment and Plan (1) Wheezing: Code(s): R06.2 - Wheezing Status: Acute Assessment and Plan: continue current nebs continue steroids -will decrease dose. doing slightly better Pulmonary consult due to patient request. (2) Hypothyroid: Code(s): E03.9 - Hypothyroidism, unspecified Status: Acute Assessment and Plan: Chronic Subjective Date/time seen: 07/19/23 10:29 Interval history: Complaining of wheezing. No hypoxia noted. Exam Narrative: GENERAL: Elderly, well-nourished, and in no acute distress. HEAD: Normocephalic, atraumatic. EYES: EOMI. ENT: Nares clear, no rhinorrhea or epistaxis. Mucous membranes moist. Oropharynx without tonsillar hypertrophy exudate or other lesions. Bilateral TMs pearly harper non-bulging NECK: Supple. No adenopathy or masses. CHEST: No respiratory distress. Diffuse expiratory wheezing. No rales or rhonchi HEART: Regular rate and rhythm. No murmur heard. Normal peripheral pulses. ABDOMEN: Soft, nontender, nondistended, normal active bowel sounds. EXTREMITIES: Normal range of motion. 2+ pitting edema to the bilateral lower extremities. Normal DP pulses. No erythema or warmth SKIN: Warm, dry, no rash. NEURO: No focal deficits. Alert and oriented x3. PSYCH: Normal mood and affect Objective Data Vital Signs Vital Signs: Vital Signs - 24 hr 07/18/23 14:20 07/18/23 14:34 07/18/23 14:00 Temperature 97.9 F Pulse Rate 79 81 86 Respiratory Rate 18 18 18 Blood Pressure 136/78 Pulse Oximetry 100 Oxygen Delivery Fraction of Inspired Oxygen 07/18/23 20:07 07/18/23 20:11 07/18/23 20:21 Temperature Pulse Rate 56 L 58 L Respiratory Rate 20 18 Blood Pressure Pulse Oximetry 96 Oxygen Delivery Room Air Fraction of Inspired Oxygen 07/18/23 21:40 07/18/23 20:00 07/19/23 01:41 Temperature 98.0 F Pulse Rate 67 60 66 Respiratory Rate 16 18 18 Blood Pressure 153/82 H Pulse Oximetry 95 96 Oxygen Delivery Room Air Fraction of Inspired Oxygen 21 07/19/23 01:54 07/19/23 06:18 07/19/23 07:52 Temperature 97.6 F Pulse Rate 62 60 Respiratory Rate 18 16 Blood Pressure 155/80 H Pulse Oximetry 97 94 Oxygen Delivery Room Air Fraction of Inspired Oxygen 07/19/23 07:52 07/19/23 08:17 07/19/23 08:20 Temperature Pulse Rate 54 L 69 Respiratory Rate 20 20 Blood Pressure Pulse Oximetry Oxygen Delivery Room Air Fraction of Inspired Oxygen Intake/Output Intake/Output: Intake & Output 07/16/23 07/17/23 07/18/23 07/19/23 23:59 23:59 23:59 23:59 Intake Total 1260 1055 900 550 Output Total 2750 1350 1250 800 [facility] -1490 -295 -350 -250 Meds/Results Medications: Active Medications Generic Name Dose Route Start Last Admin Trade Name Freq PRN Reason Stop Dose Admin Albuterol 2.5 mg 07/16/23 02:00 07/19/23 07:52 Albuterol Sulfate Neb 2.5 Mg/3 Ml Inh INHALATION 2.5 mg Q6HRT AIMEE Administration Budesonide 0.5 mg 07/17/23 20:00 07/19/23 07:52 Budesonide Respule Neb 0.5 Mg/2 Ml Amp INHALATION 0.5 mg Q12HRT AIMEE Administration Diclofenac Sodium 50 mg 07/16/23 07:40 Diclofenac Sod 25 Mg Tablet.Ec PO BID PRN Pain Docusate Sodium 100 mg 07/16/23 07:40 07/17/23 18:05 Docusate Sodium 100 Mg Capsule PO 100 mg DAILY PRN Administration Constipation Donepezil HCl 10 mg 07/16/23 21:00 07/18/23 20:42 Donepezil Hcl 10 Mg Tablet PO 10 mg HS AIMEE Administration Gabapentin 200 mg 07/16/23 09:00 07/19/23 08:26 Gabapentin 100 Mg Capsule PO 200 mg TID AIMEE Administration Ipratropium [place] 0.5 mg 07/16/23 02:00 07/19/23 07:52 Ipratropium Br 0.02% Inh Soln 0.5 Mg/2.5 Ml Vial INHALATION 0.5 mg Q6HRT AIMEE Administration Levothyroxine Sodium 150 mcg 07/16/23 08:00 07/19/23 06:06 Levothyroxine Sodium 150 Mcg Tablet PO 150 mcg DAILY@0630 AIMEE Administration Loratadine 10 mg
--- NOTE | 2023-07-19 10:50 | PM.CNPUL ---
Assessment and Plan Assessment and plan (1) Asthma: Code(s): J45.909 - Unspecified asthma, uncomplicated Status: Acute Assessment and Plan: This patient has had history of mild intermittent asthma for many years for which he had been on maintenance bronchodilators for less than a year. eosinophil count was elevated on admission. On physical exam he has mild expiratory wheezing. The patient has been on IV steroids and short-acting bronchodilators. He remains on room air. Recent pulmonary function testing showed no evidence of obstructive airway disease. I suspect the patient's asthma is mild intermittent and this current flare up coincided with nasal congestion and nasal discharge. Plan: Switch patient to oral steroid starting in a.m. continue with a short-acting bronchodilators p.r.n. need to evaluate patient in the outpatient clinic with new pulmonary function testing. He may need maintenance bronchodilators prior to coming to the outpatient pulmonary clinic. Will follow along with you (2) Fatigue: Code(s): R53.83 - Other fatigue Status: Acute Assessment and Plan: One of the patient's major complaints is incapacitating fatigue. He stated that he needs a lot of time in the morning to get going. He gets up in am without feeling refreshed. He usually takes naps during the day. He has gained significant amount of weight over the last few months, which in conjunction with lower extremity edema could indicate underlying sleep disordered breathing. Patient will need to return to pulmonary clinic for further workup. He will need sleep study to exclude sleep apnea. Regarding the lower extremity edema I would suggest echocardiogram to exclude left ventricular diastolic dysfunction. Patient's cause of fatigue is unknown. He has been on several medications that can cause tiredness, i.e. all the medications for muscle cramps. He is also on two similar medications, i.e. trazodone mirtazapine that can also cause daytime fatigue. I suspect both of these medications are used for same indication. There is history of myasthenia gravis in the patient chart but patient could not recall details about this disease. On physical exam he has no muscle weakness. Whether he has muscle disease that would explain his fatigue is unclear. I would suggest Neurology consultation. I ordered echo, CPK CRP, ApneaLink tonight. (3) Wheezing: Code(s): R06.2 - Wheezing Status: Acute (4) Hypothyroid: Code(s): E03.9 - Hypothyroidism, unspecified Status: Acute History of Present Illness History of Present Illness Consult date: 07/19/23 Chief complaint: Wheezing Narrative: This 77-year-old man presented with shortness of breath and fatigue. The patient has had multiple medical problems including hypothyroidism, history of dementia, history of asthma. He stated he was in his usual state of health until approximately 3 months ago when he started to have some wheezing. He has had also some nasal congestion and nasal discharge of clear color. This also started approximately 3 months ago. He has had asthma since the age of 19 but has been on inhalers for less than a year. Overall his asthma was mostly mild and intermittent. The patient's other complaint is extreme fatigue. When he gets up in the morning he feels very tired and it usually takes him 3-4 hours before he engages in any activity. When he presented to the emergency room he also had lower extremity edema. He has no orthopnea chest pain palpitations hemoptysis night sweats fever or chills. Recent pulmonary function testing done in May of this year showed no evidence of obstructive airway disease on just spirometry. The expiratory flow rates were diminished suggesting restrictive pattern. No lung volume measurements are available. Since admission to the hospital he he has been on IV steroids and also on short-acting bronchodilators for asthma ex
[2023-07-19 11:50] LABS: CRP < 0.5 mg/dL (<1.0); Creatine Kinase 43 U/L (55-170)
[2023-07-19 16:17] LABS: Appearance Urine Cloudy (Clear); Bilirubin Urine Negative (Negative); Blood Urine 3+ (Negative); Color Urine Yellow (Yellow); Glucose Urine UA Negative (Negative); Ketones Urine Negative (Negative); Leukocyte Esterase Ur 2+ LEU/UL (NEGATIVE); Nitrate Urine Negative (Negative); Protein Urine 2+ mg/dL (Negative); Urobilinogen Urine 0.2 mg/dL (<2.0); pH Urine >=9.0 (5.0-9.0)
[2023-07-19 17:00] LABS: Bacteria Urine 4+ /hpf; Need Manual Microscopic Reviewed; RBC Urine >100 /hpf (0-2); Squamous Epithelial Cell Urine None seen /hpf (Few); Triple Phosphate Crystal Urine Present /hpf; WBC Urine 51-100 /hpf (0-3)
[2023-07-19 17:01] LABS: Add Urine Microscopic? YES
[2023-07-19] MEDS: DOCUSATE SODIUM 100 MG CAPSULE PO (17:40)
[2023-07-19] MEDS: TAMSULOSIN HCL 0.4 MG CAPSULE PO (20:35)
[2023-07-19] MEDS: traZODone HCL 25 MG TABLET PO (20:36)
[2023-07-19] MEDS: TIZANIDINE HCL 2 MG TABLET PO (20:36)
[2023-07-19] MEDS: oxyBUTYnin CHLORIDE XL 5 MG TAB.ER.24 15 MG PO (20:36)
[2023-07-19] MEDS: DONEPEZIL HCL 10 MG TABLET PO (20:36)
[2023-07-19] MEDS: MELATONIN 5 MG TABLET 10 MG PO (20:36)
[2023-07-19] MEDS: MIRTAZAPINE 7.5 MG TABLET PO (20:36)
[2023-07-20] VITALS (9 sets, daily range): BP systolic 133–137; BP diastolic 73–91; PULSE 56–80; RESP 18–20; TEMP 36.5–36.7; O2SAT 95–98
[2023-07-20] MEDS: LEVOTHYROXINE SODIUM 150 MCG TABLET PO (06:04)
[2023-07-20] MEDS: CALCIUM CARBONATE (TUMS) 500 MG (200 MG ELEMENTAL) PO (06:23)
[2023-07-20] MEDS: GABAPENTIN 100 MG CAPSULE 200 MG PO ×3 (08:24→18:13)
[2023-07-20] MEDS: PANTOPRAZOLE 40 MG TABLET PO (08:24)
[2023-07-20] MEDS: LORATADINE 10 MG TABLET PO (08:24)
[2023-07-20] MEDS: predniSONE 20 MG TABLET 40 MG PO (08:24)
[2023-07-20] MEDS: IPRATROPIUM BR 0.02% INH SOLN 0.5 MG/2.5 ML VIAL INHALATION ×3 (09:15→20:02)
[2023-07-20] MEDS: ALBUTEROL SULFATE NEB 2.5 MG/3 ML INH INHALATION ×3 (09:15→20:02)
[2023-07-20] MEDS: BUDESONIDE RESPULE NEB 0.5 MG/2 ML AMP INHALATION ×2 (09:15→20:02)
--- NOTE | 2023-07-20 09:31 | PM.PNPUL ---
Progress Note: A&P Assessment and Plan (1) Asthma: Code(s): J45.909 - Unspecified asthma, uncomplicated Status: Acute Assessment and Plan: The patient has had history of mild intermittent asthma for many years for which he had been on maintenance bronchodilators for less than a year. ? Eosinophil count was elevated on admission.? On physical exam he has mild expiratory wheezing yesterday but clear lungs today. He remains on oral steroids and short-acting bronchodilators. Plan: Respiratory status significantly improved. Patient has no wheezing on today's exam. Regarding his intermittent asthma the patient will continue with prednisone 20 mg daily for another 5 days. He will continue with short-acting bronchodilator for p.r.n. use. I would start the patient on Symbicort 80/4.5, 2 inhalations b.i.d. patient will return to pulmonary clinic in approximately 2 weeks for follow-up. (2) Fatigue: Code(s): R53.83 - Other fatigue Status: Acute Assessment and Plan: Patient underwent ApneaLink on room air last night. It showed no evidence of oxyhemoglobin desaturation, which makes sleep apnea causing daytime fatigue unlikely. It is possible that the patient's fatigue is related to multiple sedative medications he has been on for depression, dementia, insomnia, peripheral neuropathy and muscle cramps. I held trazodone as he is also on mirtazapine q.h.s. patient's medication may need to be adjusted to see if his fatigue is related to polypharmacy. Will evaluate the patient on outpatient basis regarding possible sleep disordered breathing. From our standpoint the patient can be discharged. Will sign off please call with any questions. (3) Dementia: Code(s): F03.90 - Unspecified dementia, unspecified severity, without behavioral disturbance, psychotic disturbance, mood disturbance, and anxiety Status: Acute Subjective Date/time seen: 07/20/23 09:31 Interval history: Patient doing better. Has no wheezing this a.m.. Underwent ApneaLink last night. Remains on room air Review of Systems Review of Systems: All systems reviewed & are unremarkable except as noted in HPI and below (HPI and below) Exam Narrative: GENERAL APPEARANCE: Well developed, well nourished, alert and cooperative, and appears to be in no acute distress while on room air SKIN: Inspection of the skin reveals no rashes, ulcerations or petechiae. HEENT: Sclerae anicteric and conjunctivae pink and moist. Extraocular movements were intact and pupils were equal, round, and reactive to light. The oral mucosa, hard and soft palate, tongue and posterior pharynx were normal. NECK: Supple. There was no thyroid enlargement, and no tenderness, or masses were felt. CHEST: Normal AP diameter and normal contour without any kyphoscoliosis. LUNGS: Clear lungs bilaterally. CARDIAC: There was a regular rate and rhythm without any murmurs, gallops, rubs. ABDOMEN: Soft and nontender with normal bowel sounds. There was no organomegaly. LYMPH NODES: No lymphadenopathy was appreciated in the neck. EXTREMITIES: No cyanosis, clubbing or edema. NEUROLOGIC: Alert and oriented x 3. Normal affect. Objective Data Vital Signs Vital Signs: Vital Signs - 24 hr 07/19/23 14:25 07/19/23 14:25 07/19/23 14:42 Temperature Pulse Rate 63 68 Respiratory Rate 20 20 Blood Pressure Pulse Oximetry 97 Oxygen Delivery Room Air 07/19/23 14:00 07/19/23 19:36 07/19/23 19:47 Temperature 36.6 C 36.5 C Pulse Rate 70 62 56 L Respiratory Rate 20 18 20 Blood Pressure 133/77 135/76 Pulse Oximetry 100 95 Oxygen Delivery 07/19/23 19:52 07/19/23 19:56 07/20/23 06:00 Temperature 36.5 C Pulse Rate 62 56 L Respiratory Rate 20 18 Blood Pressure 137/73 Pulse Oximetry 95 98 Oxygen Delivery Room Air 07/20/23 09:15 07/20/23 09:15 Temperature Pulse Rate 68 Respiratory Rate 18 Blood Pressure Pulse Oximetry 95 Oxygen Del
--- NOTE | 2023-07-20 10:36 | PM.IMPN ---
Progress Note: A&P Assessment and Plan (1) Wheezing: Code(s): R06.2 - Wheezing Status: Acute Assessment and Plan: continue current nebs continue steroids -will decrease dose. doing slightly better Pulmonary consult due to patient request. (2) Hypothyroid: Code(s): E03.9 - Hypothyroidism, unspecified Status: Acute Assessment and Plan: Chronic (3) Lower extremity edema: Code(s): R60.0 - Localized edema Status: Acute Assessment and Plan: Patient has received 2 doses of Lasix. Echo pending (4) UTI (urinary tract infection): Code(s): N39.0 - Urinary tract infection, site not specified Status: Acute Assessment and Plan: UA with culture pending. Five days of oral Omnicef ordered (5) Obstructive sleep apnea: Code(s): G47.33 - Obstructive sleep apnea (adult) (pediatric) Status: Acute Assessment and Plan: Follow-up with Pulmonary as an outpatient. Subjective Date/time seen: 07/20/23 10:36 Interval history: Patient is feeling better. Reports he is breathing home better. Exam Narrative: GENERAL: Elderly, well-nourished, and in no acute distress. HEAD: Normocephalic, atraumatic. EYES: EOMI. ENT: Nares clear, no rhinorrhea or epistaxis. Mucous membranes moist. Oropharynx without tonsillar hypertrophy exudate or other lesions. Bilateral TMs pearly harper non-bulging NECK: Supple. No adenopathy or masses. CHEST: No respiratory distress. Diffuse expiratory wheezing. No rales or rhonchi HEART: Regular rate and rhythm. No murmur heard. Normal peripheral pulses. ABDOMEN: Soft, nontender, nondistended, normal active bowel sounds. EXTREMITIES: Normal range of motion. 2+ pitting edema to the bilateral lower extremities. Normal DP pulses. No erythema or warmth SKIN: Warm, dry, no rash. NEURO: No focal deficits. Alert and oriented x3. PSYCH: Normal mood and affect Objective Data Vital Signs Vital Signs: Vital Signs - 24 hr 07/19/23 14:25 07/19/23 14:25 07/19/23 14:42 Temperature Pulse Rate 63 68 Respiratory Rate 20 20 Blood Pressure Pulse Oximetry 97 Oxygen Delivery Room Air 07/19/23 14:00 07/19/23 19:36 07/19/23 19:47 Temperature 97.8 F 97.7 F Pulse Rate 70 62 56 L Respiratory Rate 20 18 20 Blood Pressure 133/77 135/76 Pulse Oximetry 100 95 Oxygen Delivery 07/19/23 19:52 07/19/23 19:56 07/20/23 06:00 Temperature 97.7 F Pulse Rate 62 56 L Respiratory Rate 20 18 Blood Pressure 137/73 Pulse Oximetry 95 98 Oxygen Delivery Room Air 07/20/23 09:15 07/20/23 09:15 07/20/23 09:41 Temperature Pulse Rate 68 72 Respiratory Rate 18 18 Blood Pressure Pulse Oximetry 95 Oxygen Delivery Room Air 07/20/23 08:20 Temperature Pulse Rate Respiratory Rate Blood Pressure Pulse Oximetry Oxygen Delivery Room Air Intake/Output Intake/Output: Intake & Output 07/17/23 07/18/23 07/19/23 07/20/23 23:59 23:59 23:59 23:59 Intake Total 9863 315 1161 480 Output Total 1350 1250 1550 350 Balance -295 -350 40 130 Meds/Results Medications: Active Medications Generic Name Dose Route Start Last Admin Trade Name Freq PRN Reason Stop Dose Admin Albuterol 2.5 mg 07/16/23 02:00 07/20/23 09:15 Albuterol Sulfate Neb 2.5 Mg/3 Ml Inh INHALATION 2.5 mg Q6HRT AIMEE Administration Budesonide 0.5 mg 07/17/23 20:00 07/20/23 09:15 Budesonide Respule Neb 0.5 Mg/2 Ml Amp INHALATION 0.5 mg Q12HRT AIMEE Administration Calcium Carbonate 200 mg 07/20/23 06:07 07/20/23 06:23 Calcium Carbonate (Tums) 500 Mg (200 Mg Elemental) PO 200 mg Q6H PRN Administration Indigestion Diclofenac Sodium 50 mg 07/16/23 07:40 Diclofenac Sod 25 Mg Tablet.Ec PO BID PRN Pain Docusate Sodium 100 mg 07/16/23 07:40 07/19/23 17:40 Docusate Sodium 100 Mg Capsule PO 100 mg DAILY PRN Administration Constipation Donepezil HCl 10 mg
[2023-07-20] MEDS: CEFDINIR 300 MG CAPSULE PO ×2 (11:01→20:38)
[2023-07-20] MEDS: ACETAMINOPHEN 325 MG TABLET 650 MG PO (18:14)
[2023-07-20] MEDS: oxyBUTYnin CHLORIDE XL 5 MG TAB.ER.24 15 MG PO (20:39)
[2023-07-20] MEDS: TIZANIDINE HCL 2 MG TABLET PO (20:39)
[2023-07-20] MEDS: DONEPEZIL HCL 10 MG TABLET PO (20:39)
[2023-07-20] MEDS: MELATONIN 5 MG TABLET 10 MG PO (20:39)
[2023-07-20] MEDS: TAMSULOSIN HCL 0.4 MG CAPSULE PO (20:39)
[2023-07-20] MEDS: MIRTAZAPINE 7.5 MG TABLET PO (20:39)
[2023-07-21 05:41] VITALS: BP 143/68; PULSE 53; RESP 20; TEMP 36.4; O2SAT 98
[2023-07-21] MEDS: LEVOTHYROXINE SODIUM 150 MCG TABLET PO (06:19)
--- NOTE | 2023-07-21 08:39 | PM.DS ---
DS: Admitting Diagnosis Discharge Date wheezing Admitting Diagnosis acute asthma exacerbation DS: Discharge Diagnosis Discharge Diagnosis (1) UTI (urinary tract infection): Code(s): N39.0 - Urinary tract infection, site not specified Status: Acute (2) Fatigue: Code(s): R53.83 - Other fatigue Status: Acute (3) Asthma: Code(s): J45.909 - Unspecified asthma, uncomplicated Status: Acute (4) Wheezing: Code(s): R06.2 - Wheezing Status: Acute (5) Acute asthma exacerbation: Code(s): J45.901 - Unspecified asthma with (acute) exacerbation Status: Acute DS: Summary Hospital Course Hospital Course: Mr. Gtz presented with wheezing and fatigue. He was treated for asthma exacerbation with nebulizer and steroids. He was also treated for incidental UTI. pulmonology consulted. he improved back to baseline and is stable for discharge to home. he also complained of fatigue, and he has polypharmacy. we have started the process of de medication by dc'ing trazodone which patient reports he was taking for depression and is ok stopping, he has no depressive symptoms. he should follow up closely with PCP and pulmonology for furthe rmt. Status at Discharge Overall status at discharge: patient is back to baseline Time Spent with Patient Time attestation: Total time spent providing and/or coordinating discharge services: Time spent: Greater than 30 minutes Exam Const: General: cooperative and no acute distress Resp: Effort & Inspection: normal respiratory effort Auscultation: clear to auscultation bilaterally Cardio: Rate: regular rate Rhythm: regular rhythm Heart sounds: S1 normal heart sound present and S2 normal heart sound present GI: GI Palp: No abdominal tenderness Auscultation: normal bowel sounds Discharge Plan Discharge Attending physician on discharge: Jillian Clay Consulting providers: Becky Ireland; Dhruv Kuo Discharging Clinician: Jillian Clay Patient Disposition: Home, Self-Care Activity: no preference Diet: as tolerated Patient Instructions: Antibiotic Form, Pain Management (GEN) Stand Alone Forms: General Discharge Information Follow-up/Referrals: Wolfgang Serrano MD [Primary Care Provider] - 1 Week (Follow up with Dr. Serrano on 07/26/23 at 10 am.) Dhruv Kuo MD [Physician] - 2 Weeks (follow up on asthma) Discharge Medications: Continued tizanidine 2 mg capsule 2 mg PO QHS tamsulosin 0.4 mg capsule 0.4 mg PO HS omeprazole 20 mg capsule,delayed release(DR/EC) 20 mg PO DAILY docusate sodium [Colace] 100 mg Capsule 100 mg PO DAILY PRN (Reason: Constipation) oxybutynin chloride 15 mg tablet extended release 24hr 15 mg PO HS cetirizine 10 mg tablet 10 mg PO DAILY donepezil 10 mg tablet 10 mg PO HS levothyroxine 150 mcg tablet 150 mcg PO DAILY diclofenac sodium 50 mg tablet,delayed release (DR/EC) 50 mg PO BID PRN (Reason: Pain) gabapentin 100 mg capsule 200 mg PO TID albuterol sulfate 90 mcg/actuation HFA aerosol inhaler 1 - 2 puff INHALATION Q4H PRN (Reason: shortnes of breath) mirtazapine 7.5 mg tablet 7.5 mg PO HS melatonin 10 mg Tablet 10 mg PO HS Discontinued trazodone 50 mg tablet 25 - 50 mg PO HS Date of admission: 07/15/23 20:56 Primary Care Provider: Wolfgang Serrano Admitting Provider: Silvia Fowler Attending physician on admission: Silvia Fowler Condition: Improved
[2023-07-21 09:00] VITALS: PULSE 93; RESP 18
[2023-07-21] MEDS: BUDESONIDE RESPULE NEB 0.5 MG/2 ML AMP INHALATION (09:00)
[2023-07-21] MEDS: ALBUTEROL SULFATE NEB 2.5 MG/3 ML INH INHALATION (09:00)
[2023-07-21] MEDS: IPRATROPIUM BR 0.02% INH SOLN 0.5 MG/2.5 ML VIAL INHALATION (09:00)
[2023-07-21 09:17] VITALS: PULSE 92; RESP 18
[2023-07-21] MEDS: PANTOPRAZOLE 40 MG TABLET PO (09:27)
[2023-07-21] MEDS: GABAPENTIN 100 MG CAPSULE 200 MG PO (09:27)
[2023-07-21] MEDS: LORATADINE 10 MG TABLET PO (09:27)
[2023-07-21] MEDS: CEFDINIR 300 MG CAPSULE PO (09:27)
[2023-07-21] MEDS: predniSONE 20 MG TABLET 40 MG PO (09:27)
== END 2023-07-21 10:05 | disposition home or self-care (01) ==
LOC: ANHED 18:19 → ANH2MED 22:23
PROVIDERS: Internal Medicine Pulmonary Disease; Preventive Medicine Aerospace Medicine; Admitting Provider Chiropractor; Emergency Provider Physician Assistant; PCP Family Medicine; Visit Provider General Practice
DX: J45.909 Unspecified asthma, uncomplicated (principal); N39.0 Urinary tract infection, site not specified; R53.83 Other fatigue; F03.90 Unspecified dementia, unspecified severity, without behavioral disturbance, psychotic disturbance, mood disturbance, and anxiety; E03.9 Hypothyroidism, unspecified; R60.0 Localized edema; K59.00 Constipation, unspecified; Z20.822 Contact with and (suspected) exposure to COVID-19; D64.9 Anemia, unspecified; N40.0 Benign prostatic hyperplasia without lower urinary tract symptoms; G47.33 Obstructive sleep apnea (adult) (pediatric); I48.20 Chronic atrial fibrillation, unspecified; K21.9 Gastro-esophageal reflux disease without esophagitis; R63.5 Abnormal weight gain; Z68.34 Body mass index [BMI] 34.0-34.9, adult; Z86.718 Personal history of other venous thrombosis and embolism; I08.3 Combined rheumatic disorders of mitral, aortic and tricuspid valves; G70.00 Myasthenia gravis without (acute) exacerbation; M19.90 Unspecified osteoarthritis, unspecified site; Z87.891 Personal history of nicotine dependence; F10.90 Alcohol use, unspecified, uncomplicated; Z79.51 Long term (current) use of inhaled steroids; Z79.899 Other long term (current) drug therapy; Z82.49 Family history of ischemic heart disease and other diseases of the circulatory system
CPT/HCPCS: 36415; 71046; 71275; 80048; 80053; 81001; 82550; 83880; 84484; 85025; 85380; 85610; 85730; 86140; 87070; 87205; 87636; 93005; 93306; 93970; 94640; 94762; 96374; 96376; 99285; A9270; G0378; J1940; J2930; J7512; Q9967

== ENCOUNTER 2023-07-24 09:18 | Emergency (ER) | payer MEDICARE, SELFPAY ==
[2023-07-24] VITALS (27 sets, daily range): BP systolic 115–137; BP diastolic 64–97; PULSE 76–97; RESP 15–24; TEMP 36.4; O2SAT 90–99
--- NOTE | ~2023-07-24 | XR_ITS ---
EXAMINATION: XR chest 2V DATE: 07/24/2023 10:53 INDICATION: Weakness. TECHNIQUE: Frontal and lateral views of the chest were obtained. COMPARISON: Chest 2 views 07/15/2023 FINDINGS: There is mild atelectasis in the lower lung zones. No pleural effusion or pneumothorax. The heart size is normal. There are surgical clips from thyroidectomy. There are surgical clips in the l ower mediastinum. IMPRESSION: 1. Mild atelectasis in the lower lung zones. Reviewed, dictated and finalized at location A.
--- NOTE | ~2023-07-24 | CT_ITS ---
EXAMINATION: CT abdomen pelvis w con DATE: 07/24/2023 13:41 INDICATION: Urinary tract infection. Constipation. TECHNIQUE: Computed tomography (CT) of the abdomen and pelvis was performed with 100 mL Omnipaque 350 intravenous contrast. Automated exposure control and iterative reconstruction technique were employe d. The dose-length product was 1183.83 mGy-cm. COMPARISON: CT abdomen and pelvis 02/26/2020 FINDINGS: The visualized portions of the lung bases demonstrate mild atelectasis. No pleural effusion . The heart size is normal. There are coronary artery calcifications. No pericardial effusion. The di stal esophagus is patulous. There are surgical clips around the gastroesophageal junction. There is a 19 mm cyst in the liver. The spleen is normal. The gallbladder is distended, likely secondary to fas ting. The adrenal glands and pancreas are normal. There are cysts in the kidneys measuring up to 3.1 cm on the left. There is calcified atherosclerosis of the aorta and many of the other arteries. There are bilateral inguinal hernias containing fat. There is mild diffuse bladder wall thickening, likely secondary to chronic outlet obstruction from the moderately enlarged prostate. There is a 10 mm mass at the left lateral wall of the bladder. There is diverticulosis of the colon without evidence of di verticulitis. There are no dilated loops of bowel. There is a moderate volume of stool in the colon. 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 There are no pathologically enlarged lymph nodes. There is no free intraperitoneal fluid. There is severe lower lumbar spondylosis. IMPRESSION: 1. 10 mm mass at the left lateral wall of the bladder suspicious for urothelial carcinoma. 2. Mild diffuse bladder wall thickening, likely secondary to chronic outlet obstruction from the mode rately enlarged prostate. Reviewed, dictated and finalized at location A. IMPRESSION: 1. 10 mm mass at the left lateral wall of the bladder suspicious for urothelial carcinoma. 2. Mild diffuse bladder wall thickening, likely secondary to chronic outlet obs truction from the moderately enlarged prostate.
--- NOTE | 2023-07-24 09:23 | ECG_ITS ---
Measurements Intervals [place] Rate: 83 P: 54 WA: 156 QRS: -2 QRSD: 89 T: 48 QT: 359 QTc: 422 Interpretive Statements SINUS RHYTHM WITH FREQUENT VENTRICULAR PREMATURE COMPLEXES Electronically Signed On 07-25-2023 12:52:27 CDT by Josias Galvin M.D.
--- NOTE | 2023-07-24 09:45 | ED.WEAKNESS ---
HPI - Weakness General Chief complaint: Weakness Stated complaint: weak with tremors Time Seen by Provider: 07/24/23 09:23 Source: patient Mode of arrival: EMS Limitations: no limitations History of Present Illness HPI Narrative: This is a 77 year old female that presents to the ER for weakness and tremors. Reports he felt all over body shaking that lasted for about 30 minutes. Reports he was treated for a UTI while he was recently hospitalized for asthma exacerbation, but was not discharged on any antibiotics. He has continued to have urinary discomfort. Denies fever, shortness of breath, abdominal pain, vomiting or hematuria. Related Data Home Medications Medication Instructions Recorded Confirmed docusate sodium 100 mg capsule 100 mg PO DAILY PRN Constipation 02/26/20 07/15/23 (Colace) omeprazole 20 mg capsule,delayed 20 mg PO DAILY 02/26/20 07/15/23 release tamsulosin 0.4 mg capsule 0.4 mg PO HS 02/26/20 07/15/23 tizanidine 2 mg capsule 2 mg PO QHS 02/11/21 07/15/23 albuterol sulfate 90 mcg/actuation 1 - 2 puff inhalation Q4H PRN 07/15/23 07/15/23 aerosol inhaler shortnes of breath cetirizine 10 mg tablet 10 mg PO DAILY 07/15/23 07/15/23 diclofenac sodium 50 mg 50 mg PO BID PRN Pain 07/15/23 07/15/23 tablet,delayed release donepezil 10 mg tablet 10 mg PO HS 07/15/23 07/15/23 gabapentin 100 mg capsule 200 mg PO TID 07/15/23 07/15/23 levothyroxine 150 mcg tablet 150 mcg PO DAILY 07/15/23 07/15/23 melatonin 10 mg tablet 10 mg PO HS 07/15/23 07/15/23 mirtazapine 7.5 mg tablet 7.5 mg PO HS 07/15/23 07/15/23 oxybutynin chloride 15 mg 15 mg PO HS 07/15/23 07/15/23 tablet,extended release 24 hr Allergies Allergy/AdvReac Type Severity Reaction Status Date / Time No Known Allergies Allergy Unverified 07/24/23 09:27 Review of Systems Review of Systems: CONSTITUTIONAL: Denies fever CARDIOVASCULAR: Denies chest pain RESPIRATORY: Denies dyspnea. GASTROINTESTINAL: Denies abdominal pain, nausea, vomiting GENITOURINARY: Reports dysuria. Denies hematuria. NEUROLOGIC: Reports generalized weakness. All systems reviewed & are unremarkable except as noted in HPI and below PMFSH Past Medical History Medical History (Updated 07/24/23 @ 15:29 by Becky Ireland PA-C) Acute GI bleeding Acute lower GI bleeding Anemia Arthritis BPH (benign prostatic hyperplasia) Chronic a-fib Dementia Diverticulitis Diverticulosis DVT prophylaxis GERD (gastroesophageal reflux disease) Hypothyroid Myasthenia gravis Surgical History Surgical History H/O arthroscopic knee surgery H/O thyroidectomy Family History Family History Mother , age 85 Acute myocardial infarction Hypertension Heart disease Father , age 70 Acute myocardial infarction Chronic obstructive pulmonary disease History of blood clots Hypertension Heart disease Sibling Acute myocardial infarction Hypertension Heart disease Other Heart disease Social History Social History Social History: 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[employer], 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 [employer], 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
[2023-07-24 09:53] LABS: Hematocrit 43.9 % (42.0-52.0); Hemoglobin 14.7 g/dL (14.0-18.0); Mean Corpuscular HGB Conc 33.5 g/dl (32-36); Mean Corpuscular Hemoglobin 34.5 pg (26-34); Mean Corpuscular Volume 103.1 fl (80-100); Mean Platelet Volume 10.8 fl (7.4-10.4); Platelet Count Result 158 k/mm3 (150-375); Red Blood Count 4.26 M/mm3 (4.6-6.20); Red Cell Distribution Width 13.5 % (11.5-14.5); White Blood Count 10.2 K/mm3 (4.5-10.0)
[2023-07-24 10:06] LABS: Alanine Aminotransferase 75 U/L (6-50); Albumin Level 3.3 g/dL (3.5-5.1); Alkaline Phosphatase 96 U/L (38-126); Anion Gap 1 mmol/L (8-16); Aspartate Amino Transferase 49 U/L (17-59); Blood Urea Nitrogen 22 mg/dL (9-20); Calcium 7.8 mg/dL (8.4-10.2); Carbon Dioxide 30 mmol/L (22-30); Chloride 106 mmol/L (98-107); Creatine Kinase 66 U/L (55-170); Estimated CRCL calculation 55 ml/min; Estimated Glomerular Filt Rate > 60; Glucose 93 mg/dL (65-110); Potassium 4.3 mmol/L (3.4-5.0); Sodium 137 mmol/L (137-145)
[2023-07-24 10:19] LABS: Band Neutrophils Percent 12 % (0-6); Neutrophils Absolute Manual 9.99 K/mm3 (1.3-6.7); Neutrophils Percent Manual 86 % (46-73); Total Cells Counted 100
[2023-07-24 10:20] LABS: Platelet Estimate Adequate (Adequate); Schistocytes None Seen (NORMAL)
[2023-07-24 10:32] LABS: Influenza A QL RT-PCR Negative (Negative); Influenza B QL RT-PCR Negative (Negative); SARS-CoV-2 RNA PCR Negative (Negative)
[2023-07-24 10:58] LABS: Appearance Urine Cloudy (Clear); Bacteria Urine 4+ /hpf; Bilirubin Urine 1+ (Negative); Blood Urine 1+ (Negative); Color Urine Dark Yellow (Yellow); Glucose Urine UA Negative (Negative); Ketones Urine Negative (Negative); Leukocyte Esterase Ur 3+ LEU/UL (Negative); Nitrate Urine Positive (Negative); Non Pathogenic Casts 0-2; Protein Urine 1+ mg/dL (Negative); Specific Grav Ur 1.023 (1.001-1.035); Squamous Epithelial Cell Urine None seen /hpf (Few); WBC Urine >100 /hpf; pH Urine 7.5 (5.0-9.0)
[2023-07-24 10:59] LABS: Add Urine Microscopic? YES
[2023-07-24] MEDS: levoFLOXacin 750 MG/D5W 150 ML 750 MG/150 ML BAG 100 MG IVPB (11:53)
== END 2023-07-24 16:12 | disposition home or self-care (01) ==
PROVIDERS: Emergency Provider Physician Assistant; PCP Family Medicine
DX: N30.00 Acute cystitis without hematuria (principal); N32.89 Other specified disorders of bladder; Z20.822 Contact with and (suspected) exposure to COVID-19; F03.90 Unspecified dementia, unspecified severity, without behavioral disturbance, psychotic disturbance, mood disturbance, and anxiety; I48.20 Chronic atrial fibrillation, unspecified; N40.0 Benign prostatic hyperplasia without lower urinary tract symptoms; E89.0 Postprocedural hypothyroidism; G70.00 Myasthenia gravis without (acute) exacerbation; K21.9 Gastro-esophageal reflux disease without esophagitis; M19.90 Unspecified osteoarthritis, unspecified site; Z86.2 Personal history of diseases of the blood and blood-forming organs and certain disorders involving the immune mechanism; Z87.891 Personal history of nicotine dependence
CPT/HCPCS: 36415; 71046; 74177; 80053; 81001; 82550; 85025; 87077; 87086; 87186; 87636; 93005; 96365; 99284; J1956; Q9967

== ENCOUNTER 2023-08-19 07:46 | Outpatient (CLI) | payer MEDICARE, SELFPAY | END 2023-08-19 07:47 | disposition home or self-care (01) | LOC: ANHSURGERY 07:51 | PROVIDERS: PCP Family Medicine; Visit Provider Urology | DX: N32.9 Bladder disorder, unspecified (principal); Z01.818 Encounter for other preprocedural examination | CPT/HCPCS: 87086 ==

== ENCOUNTER 2023-08-24 01:30 | Day surgery (SDC) | payer MEDICARE, SELFPAY ==
--- NOTE | 2023-08-13 10:45 | PC.NURSE ---
Report to the Outpatient Waiting Room, entrance under the green pavilion located off [facility], at time _0730 on date ___08/24/23____. Planned Procedure Time: 929 . Time changes happen often and if your time is changed the preop area will call you the afternoon before. - You and your visitor will be asked to self-screen and do not enter if you have any COVID symptoms. - A mask is optional within the hospital at this time. Patients may have clear liquids (water, carbonated beverages, clear teas, apple juice) until 3 hours prior to surgery with a maximum of 20 ounces. - No food from midnight until time of surgery - Infants may have breast milk until 4 hours before surgery, formula 6 hours prior to surgery. - Children will be allowed to drink immediately following surgery. If applicable, please bring a bottle or sippy cup to assist with drinking. Juice, water, soda, and popsicles are readily available. For infants on formula, please bring formula the day of surgery. Pacifiers are allowed. Take the following medications with a SIP of water the morning of surgery: ___INHALER, GABAPENTIN,LEVOTHYROXINE, DO NOT STOP ANY OF YOUR OTHER PRESCRIPTION MEDICATIONS PRIOR TO SURGERY ?EXCEPT THE FOLLOWING Medications to discontinue per physician ___DICLOFENAC PER DR SOSA Please no make-up, nail mongolian, hairspray, perfume, deodorant, or body powder the day of surgery. No jewelry (including any body piercings) or valuables the day of surgery, leave them at home. Please take a shower or bath the night before, or the morning of, surgery with an antibacterial soap. Wear comfortable, loose fitting clothing. Children are encouraged to wear pajamas. - Jewelry must be removed prior to entering the operating room. Rings and piercings that are not removed may be cut off. - The hospital will not accept responsibility for valuables. - Please leave all valuables, including medications, at home the day of surgery. If you are going home after surgery, a licensed dump truck driver must drive you home. - NO public transportation without another adult if you receive anesthesia. - We recommend that an adult stay with you for 24 hours following discharge. - We also recommend that you do not drive, make important decision, drink alcoholic beverages, or take any drugs that were not prescribed by your health care provider for at least 24 hours after your discharge time. For Pediatric surgeries, we recommend two adults accompany the child home. Follow any additional instructions given to you from your surgeon. If you or anyone in your household have experienced Covid symptoms in the past week, please notify your surgeon or the nurse liaison at the phone number below for possible testing. Telephone instructions given to __PATIENT and asked if any additional questions and then verbalized understanding. Patient advised to call surgeon office or pre surgery nurse liaison [phone] if any additional questions.
[2023-08-13 10:53] VITALS: BMI 32.1
[2023-08-24] VITALS (11 sets, daily range): BP systolic 130–157; BP diastolic 72–94; PULSE 58–80; RESP 12–20; TEMP 36.2–36.7; O2SAT 97–100
[2023-08-24] MEDS: LACTATED RINGERS 1,000 ML 30 ML IV CONT (08:40)
--- NOTE | 2023-08-24 09:08 | WPDANESEPPF ---
Anes - Initial Pre Proc Eval Procedure: Operation Date: 08/24/23 09:30 Proposed Procedures p Cystoscopy Bladder Biopsy, - Олег Butcher MD s Trans Urethral Resection Bladder Tumor - Олег Butcher MD Date/Time: 08/24/23 09:08 Surgeon: Олег Butcher MD Pre Op Diagnosis: bladder lesion Patient Data Age: 78 Gender: M Height: 1.8 m Weight: 104.35 kg Allergies Allergy/AdvReac Type Severity Reaction Status Date / Time No Known Allergies Allergy Verified 08/13/23 11:41 Home Medications Medication Instructions Recorded Confirmed Type albuterol sulfate 90 mcg/actuation 90 mcg inhalation PRN PRN 08/13/23 08/24/23 History aerosol inhaler Shortness Of Breath diclofenac sodium 50 mg 50 mg PO PRN PRN Pain 08/13/23 08/24/23 History tablet,delayed release docusate sodium 50 mg capsule 50 mg PO DAILY 08/13/23 08/24/23 History (Stool Softener) furosemide 20 mg tablet (Lasix) 20 mg PO DAILY 08/13/23 08/24/23 History gabapentin 100 mg capsule 200 mg PO TID 08/13/23 08/24/23 History levothyroxine 150 mcg tablet 150 mcg PO DAILY 08/13/23 08/24/23 History nitrofurantoin 100 mg capsule 100 mg PO Q12H 08/13/23 08/24/23 History omeprazole 20 mg capsule,delayed 20 mg PO DAILY 08/13/23 08/24/23 History release tamsulosin 0.4 mg capsule 0.4 mg PO HS 08/13/23 08/24/23 History tizanidine 2 mg tablet 2 mg PO Q8H PRN Muscle Pain 08/13/23 08/24/23 History vibegron 75 mg tablet (Gemtesa) 75 mg PO DAILY 08/13/23 08/24/23 History Patient hx anesthesia problems: none Family hx anesthesia problems: none Results Review: All pre-operative results and documents have been reviewed as part of the pre-operative evaluation. [facility] Past Medical History Medical History Acute GI bleeding Acute lower GI bleeding Anemia Arthritis BPH (benign prostatic hyperplasia) Chronic a-fib Dementia Diverticulitis Diverticulosis DVT prophylaxis GERD (gastroesophageal reflux disease) Hypothyroid Myasthenia gravis Surgical History Surgical History H/O arthroscopic knee surgery H/O thyroidectomy Family History Family History Mother , age 85 Acute myocardial infarction Hypertension Heart disease Father , age 70 Acute myocardial infarction Chronic obstructive pulmonary disease History of blood clots Hypertension Heart disease Sibling Acute myocardial infarction Hypertension Heart disease Other Heart disease Social History Social History Social History: 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[employer], 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[employer], 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 3 children living and well Smoking packs per day: 1 Smoking cigarettes per day: 20.0 Years smoked: 4 Smoking pack-years: 4.00 Smoking status: Never smoker Alcohol intake: current Drinks per week: 2 Substance use: never Substance use type: does not use Lack of Transportation: No Lack of Food: Never True Current Housing: I Have Housing Concerned About Future Housing: No Difficulty Paying Gas/Electric Bills: No Difficulty Paying for Meds: No Currently Unemployed: No Education: Don't Know Difficulty w/ Childcare or Family Care: No Living arrangements: with family Gender identity (if verbalized by the patient): Male Spiritual care concerns: No Anes - Eval Final PreProcedure Day of Procedure 08/24/23 09:08 Patient weight: overweight Heart: regular rate and rhythm Lungs: wheezes (late expiratory wheeze ) Airway: Mallampati scale class II Neurological: alert and oriented Last oral intake: >/= 8 hours ASA classification: III Emergent: no Anesthetic plan: proceed Anesthesia type and monitoring: general LMA and standard
--- NOTE | 2023-08-24 09:18 | WPDHPUPDATE1 ---
History and Physical Update Update Date/Time: 08/24/23 09:18 History and Physical has been reviewed, including an updated exam of the patient. There are NO changes in the patient's condition. Risks, benefits, and alternatives have been discussed and questions answered. Patient agrees to proceed with procedure. PROCEED WITH CYSTOSCOPY, BLADDER BIOPSY WITH FULGURATION, POSSIBLE TURBT
[2023-08-24] MEDS: ceFAZolin 2 GM/D5W 50 ML 2 GM/50 ML BAG IVPB (10:14)
[2023-08-24] MEDS: LIDOCAINE HCL 2% GEL UROJET 10 ML PKG MUCOUS MEM (10:34)
--- NOTE | 2023-08-24 10:42 | P.OP_ITS ---
Procedure Note - Detailed Date of Procedure 08/24/23 Pre-op Diagnosis bladder lesion Post-op Diagnosis Same Procedure Performed Cysto bladder biopsy with fulguration Surgeon Олег Butcher MD Anesthesia General Description of Procedure Patient is taken the operative suite correctly identified. Once anesthesia was obtained was placed in dorsal lithotomy position and prepped and draped usual sterile fashion. Twenty-four Italian scope was inserted urethra. Bladder was inspected in its entirety. He does have marked trabeculation present. There was no area of erythema actually on the posterior wall floor near the right ureteral orifice. This area was biopsied using a 24 Italian resectoscope. The b ase was fulgurated. No other lesions were noted at this time. 2% viscous lidocaine was inserted into the urethra patient is taken recovery stable condition. Is instructed to call for path results in 1 week. Please send a copy of this op note to my office Estimated Blood Loss 0 Drains No Packing No Pathology Yes Complications No immediate complications Condition Stable Disposition PACU
== END 2023-08-24 12:48 | disposition home or self-care (01) ==
PROVIDERS: PCP Family Medicine; Visit Provider Urology
PROC: 0TBB8ZX Excision of Bladder, Via Natural or Artificial Opening Endoscopic, Diagnostic (ICD-10-PCS; CPT 52204; principal; 2023-08-24 09:30)
DX: N30.80 Other cystitis without hematuria (principal); I48.20 Chronic atrial fibrillation, unspecified; F03.90 Unspecified dementia, unspecified severity, without behavioral disturbance, psychotic disturbance, mood disturbance, and anxiety; E03.9 Hypothyroidism, unspecified; K21.9 Gastro-esophageal reflux disease without esophagitis; N40.0 Benign prostatic hyperplasia without lower urinary tract symptoms; Z79.51 Long term (current) use of inhaled steroids
CPT/HCPCS: 52204; 87086; 88305; J0690; J2405; J2704; J3010; J7120

== ENCOUNTER 2023-10-10 08:48 | Emergency (ER) | payer MEDICARE, SELFPAY ==
[2023-10-10] VITALS (14 sets, daily range): BP systolic 115–147; BP diastolic 79–98; PULSE 75–90; RESP 11–23; TEMP 36.7–36.8; O2SAT 95–100
--- NOTE | ~2023-10-10 | XR_ITS ---
EXAMINATION: XR chest 1V portable DATE: 10/10/2023 09:43 INDICATION: Chest pain. Vomiting. TECHNIQUE: A single frontal view of the chest was obtained. COMPARISON: Chest 2 views 07/24/2023, CT 10/10/2023 FINDINGS: The lungs demonstrate mild atelectasis at the bases. No pleural effusion. No pneumothorax. Cardiomegaly is noted. There are surgical clips around the distal esophagus. There are surgical clips from thyroidectomy. IMPRESSION: 1. Mild atelectasis at the lung bases. 2. Cardiomegaly. Reviewed, dictated and finalized at location A. ICAL PHARMACY COORDINATOR
--- NOTE | ~2023-10-10 | CT_ITS ---
EXAMINATION: CTA chest abdomen pelvis DATE: 10/10/2023 09:41 INDICATION: Chest pain. TECHNIQUE: Computed tomographic angiography (CTA) of the chest, abdomen, and pelvis was performed wit h 100 mL Omnipaque-350 intravenous contrast. Automated exposure control and iterative reconstruction technique were employed. The dose-length product was 1639.68 mGy-cm. Maximum intensity projection 3D- reconstructions of the aorta and other arteries were constructed by the technologist on a separate wo rkstation. COMPARISON: CT abdomen and pelvis 07/24/2023 FINDINGS: CHEST CTA: There is a 3 mm nodule in right lung upper lobe, likely benign. There is mild atelectasis bilaterally . There is mild emphysema. No pleural effusion. There are changes of thyroidectomy. Cardiomegaly is n oted. No pericardial effusion. There are coronary artery calcifications. There is fluid in the esopha onelia. There are surgical clips around the distal esophagus. The esophagus is patulous. The thoracic ao rta is normal. There is mild thoracic spondylosis. ABDOMEN AND PELVIS CTA: There are cysts in the liver measuring up to 18 mm. The gallbladder, spleen, pancreas, and adrenal gl ands are normal. There are cysts in the kidneys measuring up to 3.2 cm on the left. There is calcifie d atherosclerosis of the aorta and many of the other arteries. 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 There is no significant stenosis of celiac axis, superior mesenteric artery, the renal arteries, or inferior mesenteric artery. There are bilate ral inguinal hernias containing fat. The prostate is mildly enlarged. There is diverticulosis of the colon without evidence of diverticulitis. The appendix is normal. There are no dilated loops of bowel . There are multiple lipomas in the ileum. There are no pathologically enlarged lymph nodes. There is no free intraperitoneal fluid. There is severe lower lumbar spondylosis. IMPRESSION: 1. 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 2. Fluid again seen in the esophagus, which is patulous. Reviewed, dictated and finalized at location A. GER SPECIALTY IMPRESSION: 1. 3.0 cm fusiform aneurysm of infrarenal aorta with penetrating atheroscleroti c ulcer. 2. Fluid again seen in the esophagus, which is patulous.
--- NOTE | 2023-10-10 08:49 | ECG_ITS ---
Measurements Intervals [place] Rate: 95 P: 62 [place]: 162 QRS: 25 QRSD: 77 T: 82 QT: 347 QTc: 437 Interpretive Statements SINUS RHYTHM WITH FREQUENT VENTRICULAR PREMATURE COMPLEXES ABNORMAL RHYTHM ECG NO PREVIOUS ECG AVAILABLE FOR COMPARISON Electronically Signed On 10-10-2023 15:12:04 DIRECTOR INPATIENT HEADACHE PROGRAM by Stephy Benitez M.D.
--- NOTE | 2023-10-10 08:57 | ED.CHESTPAIN ---
HPI - Chest Pain General Chief Complaint: Abdominal Pain Stated Complaint: Extreme chest pains for months Time Seen by Provider: 10/10/23 08:52 History of Present Illness HPI narrative: 78-year-old male presenting to the emergency department for evaluation of 2 months of chest pain. Patient does have a known allergy and thought that his pain was secondary to that. Patient states he has had 2 months of epigastric abdominal pain that has worsened over the last 2 weeks. Patient states he is also having some black tarry stools. Patient does have a history of a GI bleed. Patient is not on any blood thinners. Patient reports he does have a prior history of hiatal hernia but has not seen a physician for greater than 20 years. Related Data Home Medications Medication Instructions Recorded Confirmed diclofenac sodium 50 mg 50 mg PO PRN PRN Pain 08/13/23 10/10/23 tablet,delayed release docusate sodium 50 mg capsule 100 mg PO DAILY 08/13/23 10/10/23 (Stool Softener) furosemide 20 mg tablet (Lasix) 20 mg PO DAILY 08/13/23 10/10/23 gabapentin 100 mg capsule 200 mg PO TID 08/13/23 10/10/23 nitrofurantoin 100 mg capsule 100 mg PO Q12H 08/13/23 10/10/23 omeprazole 20 mg capsule,delayed 20 mg PO DAILY 08/13/23 10/10/23 release tamsulosin 0.4 mg capsule 0.4 mg PO HS 08/13/23 10/10/23 tizanidine 2 mg tablet 2 mg PO Q8H PRN Muscle Pain 08/13/23 10/10/23 vibegron 75 mg tablet (Gemtesa) 75 mg PO DAILY 08/13/23 10/10/23 albuterol sulfate 90 mcg/actuation 90 mcg inhalation PRN 10/10/23 10/10/23 aerosol inhaler cetirizine 10 mg tablet 10 mg PO DAILY 10/10/23 10/10/23 melatonin 10 mg tablet 10 mg PO HS PRN Sleep 10/10/23 10/10/23 mirtazapine 7.5 mg tablet 7.5 mg PO HS 10/10/23 10/10/23 oxybutynin chloride 15 mg 15 mg PO HS 10/10/23 10/10/23 tablet,extended release 24 hr Allergies Allergy/AdvReac Type Severity Reaction Status Date / Time No Known Allergies Allergy Verified 10/10/23 17:43 Review of Systems Review of Systems: All systems reviewed & are unremarkable except as noted in HPI and below PMFSH Past Medical History Medical History Acute GI bleeding Acute lower GI bleeding Anemia Arthritis BPH (benign prostatic hyperplasia) Chronic a-fib Dementia Diverticulitis Diverticulosis DVT prophylaxis GERD (gastroesophageal reflux disease) Hypothyroid Myasthenia gravis Surgical History Surgical History H/O arthroscopic knee surgery H/O thyroidectomy Family History Family History Mother , age 85 Acute myocardial infarction Hypertension Heart disease Father , age 70 Acute myocardial infarction Chronic obstructive pulmonary disease History of blood clots Hypertension Heart disease Sibling Acute myocardial infarction Hypertension Heart disease Other Heart disease Social History Social History Social History: 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[employer], 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[employer], 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 3 children living and well Smoking packs per day: 1 Smoking cigarettes per day: 20.0 Years smoked: 4 Smoking pack-years: 4.00 Smoking status: Never smoker Alcohol intake: current Drinks per week: 2 Substance use: never Substance use type: does not use Lack of Transportation: No Lack of Food: Never True Current Housing: I Have Housing Concerned About Future Housing: No Difficulty Paying Gas/Electric Bills: No Difficulty Paying for Meds: No Currently Unemployed: No Education: Don't Know Difficulty w/ Childcare or Family Care: No Living arrangements: with family Gender identity (if verbalized by the patient): Male Spiritual care concerns: No Exam Narrative: APPEARANCE:
[2023-10-10 09:08] LABS: Basophils Absolute Auto 0.1 K/mm3 (0.0-0.1); Basophils Percent Auto 0.4 % (0.2-1.2); Eosinophils Absolute Auto 0.2 K/mm3 (0-0.3); Eosinophils Percent Auto 2.1 % (0-4.4); Hematocrit 44.2 % (42.0-52.0); Hemoglobin 14.3 g/dL (14.0-18.0); Immature Granulocyte Absolute 0.06 K/mm3 (0.00-0.031); Immature Granulocyte Percent A 0.5 % (0-0.5); Lymphocytes Absolute Auto 2.37 K/mm3 (0.9-3.2); Lymphocytes Percent Auto 21.2 % (18.3-44.2); Mean Corpuscular HGB Conc 32.4 g/dl (32-36); Mean Corpuscular Hemoglobin 33.9 pg (26-34); Mean Corpuscular Volume 104.7 fl (80-100); Mean Platelet Volume 10.7 fl (7.4-10.4); Monocytes Absolute Auto 0.7 K/mm3 (0.1-0.6); Monocytes Percent Auto 6.5 % (2.6-8.5); Neutrophils Absolute Auto 7.7 K/mm3 (1.3-6.7); Neutrophils Percent Auto 69.3 % (45.5-73.1); Platelet Count Result 265 k/mm3 (150-375); Red Blood Count 4.22 M/mm3 (4.6-6.20); Red Cell Distribution Width 14.5 % (11.5-14.5); White Blood Count 11.2 K/mm3 (4.5-10.0)
[2023-10-10] MEDS: METOCLOPRAMIDE HCL INJ 10 MG/2 ML VIAL IV PUSH (09:14)
[2023-10-10] MEDS: PANTOPRAZOLE SODIUM IV 40 MG VIAL IV PUSH (09:14)
[2023-10-10] MEDS: HYDROmorphone HCL INJ (*CRX) 1 MG/ML SYR 0.5 MG IV PUSH (09:14)
[2023-10-10 09:17] LABS: INR 0.9; Prothrombin Time 12.8 Seconds (11.1-14.7)
[2023-10-10 09:19] LABS: Partial Thromboplastin Time 31.1 SECONDS (22.3-36.8)
[2023-10-10 09:20] LABS: Alanine Aminotransferase 24 U/L (6-50); Albumin Level 4.4 g/dL (3.5-5.1); Alkaline Phosphatase 85 U/L (38-126); Anion Gap 7 mmol/L (8-16); Aspartate Amino Transferase 32 U/L (17-59); Bilirubin,Total 0.9 mg/dL (0.2-1.3); Blood Urea Nitrogen 37 mg/dL (9-20); Calcium 9.8 mg/dL (8.4-10.2); Carbon Dioxide 28 mmol/L (22-30); Chloride 103 mmol/L (98-107); Estimated Glomerular Filt Rate > 60; Glucose 124 mg/dL (65-110); Lipase 66 U/L (23-300); Potassium 4.7 mmol/L (3.4-5.0); Sodium 138 mmol/L (137-145)
[2023-10-10 09:30] LABS: Troponin I < 0.012 ng/mL (0.000-0.034)
[2023-10-10] MEDS: BELLADONNA ALK/PHENOB ELIX 10 ML, MAG HYDROX/ALUMINUM HYD/SIMETH 30 ML, LIDOCAINE HCL 2... PO (12:25)
--- NOTE | 2023-10-10 12:48 | ECG_ITS ---
Measurements Intervals [place] Rate: 85 P: 47 [place]: 172 QRS: 12 QRSD: 88 T: 52 QT: 350 QTc: 418 Interpretive Statements SINUS RHYTHM NONSPECIFIC T-WAVE ABNORMALITY COMPARED TO ECG 10/10/2023 08:58:19 NO SIGNIFICANT CHANGES Electronically Signed On 10-10-2023 15:16:21 FLIGHT DIRECTOR by Stephy Benitez M.D.
[2023-10-10 12:56] LABS: Troponin I < 0.012 ng/mL (0.000-0.034)
--- NOTE | 2023-10-10 13:57 | PC.NURSE ---
Patient accepted at [facility] by Dr. Garcia. Awaiting bed assignment at this time.
[2023-10-10 15:01] LABS: Troponin I < 0.012 ng/mL (0.000-0.034)
--- NOTE | 2023-10-10 19:25 | PC.NURSE ---
THIS RN ASSUMED CARE OF PATIENT. THIS RN TOOK PATIENT REPORT FROM MARAH CORONA.
== END 2023-10-10 20:10 | disposition short-term general hospital (02) ==
PROVIDERS: Emergency Provider Emergency Medicine; PCP Family Medicine
DX: K92.2 Gastrointestinal hemorrhage, unspecified (principal); K22.89 Other specified disease of esophagus; M19.90 Unspecified osteoarthritis, unspecified site; I48.91 Unspecified atrial fibrillation; F03.90 Unspecified dementia, unspecified severity, without behavioral disturbance, psychotic disturbance, mood disturbance, and anxiety; K21.9 Gastro-esophageal reflux disease without esophagitis; E03.9 Hypothyroidism, unspecified
CPT/HCPCS: 36415; 71045; 71275; 74174; 80053; 83690; 84484; 85025; 85610; 85730; 93005; 96374; 96375; 99285; A9270; C9113; J1170; J2765; Q9967

== ENCOUNTER 2023-11-18 08:04 | Outpatient (CLI) | payer MEDICARE, SELFPAY ==
--- NOTE | 2023-11-18 13:13 | WPDSIXMINUTE ---
Six Minute Walk Procedure Procedure Performed Pulmonary Stress Test (6 min walk) Six Minute Walk Six Minute Walk: This is a 6 minute walk test. The test was performed and interpreted in accordance with the 2014 ERS/ATS task force guidelines. Findings: The patient's resting room air oxygen saturation measured by pulse oximetry was 97% and heart rate was 67 bpm. Patient ambulated for 183 meters and oxygen saturation remained 95 to 97%. Heart rate at the end of the study was 92 bpm. The patient did not qualify for supplemental oxygen at rest or with ambulation. There are no prior studies for comparison.
--- NOTE | 2023-11-18 13:15 | WPDPFTINT ---
PFT Procedure Performed PFT Procedure Performed Spirometry with Pre/Post Bronchodilator Plethysmography (Lung Vol) Diffusing Cap (DLCO) Flow Vol Loop PFT Interpretation This is a pulmonary function test with pre and post-bronchodilator spirometry, plethysmography and diffusing capacity. The test was performed and results interpreted in accordance with the 2019 and 2005 ATS/ERS Task Force guidelines respectively using the Global Lung Function Initiative-2012 reference equations. Patient demonstrated good effort and cooperation. Reproducibility criteria were met. The quality of the pre bronchodilator spirometry maneuver was Grade A and post bronchodilator spirometry maneuver was Grade A. Findings: Spirometry: The contour the inspiratory and expiratory flow tracing are normal. The pre bronchodilator FVC is 3.27 L, 98% predicted. The pre bronchodilator FEV1 is 2.35 L, 94% predicted. The pre bronchodilator FEV1: FVC ratio 72%. The post bronchodilator FVC is 3.06 L, representing a 7% decrease. The post bronchodilator FEV1 is 2.46 L, representing a 5% increase. The post bronchodilator FEV1: FVC ratio is 80%. Plethysmography: The total lung capacity is 5.45 L, 88% predicted. The functional residual capacity is 2.40 L, 68% predicted. The residual volume is 2.17 L, 88% predicted. Diffusing capacity: The diffusing capacity unadjusted for hemoglobin and carboxyhemoglobin is 17.2, 71% predicted. Diffusing capacity adjusted for alveolar volume is 3.39, 93% predicted. Impression: The spirometry is normal without evidence of an obstructive abnormality. There is no significant improvement after inhaling a single dose of albuterol. The lung volumes are normal. The diffusing capacity is normal. There are no prior studies for comparison
== END 2023-11-18 08:05 | disposition home or self-care (01) ==
PROVIDERS: PCP Family Medicine; Visit Provider Internal Medicine Pulmonary Disease
DX: J45.909 Unspecified asthma, uncomplicated (principal)
CPT/HCPCS: 94060; 94618; 94726; 94729

== ENCOUNTER 2024-02-02 00:35 | Day surgery (SDC) | payer MEDICARE, SELFPAY ==
[2024-01-26 08:46] VITALS: BMI 28.8
[2024-02-02 11:27] VITALS: BP 130/89; PULSE 72; RESP 18; TEMP 36.1; O2SAT 95
[2024-02-02] MEDS: LACTATED RINGERS 1,000 ML 150 ML IV CONT (11:29)
--- NOTE | 2024-02-02 12:06 | WPDANESEPPF ---
Anes - Initial Pre Proc Eval Procedure: Operation Date: 02/02/24 12:30 Proposed Procedures p Esophagogastroduodenoscopy&Screen Colon - Irvin Gonzalez MD Date/Time: 02/02/24 12:06 Surgeon: Irvin Gonzalez MD Pre Op Diagnosis: Dysphagia, Neoplasm screening Patient Data Age: 78 Gender: M Height: 1.78 m Weight: 91 kg Last Vital Signs Temp 97.0 F L 02/02/24 11:27 Pulse 72 02/02/24 11:27 Resp 18 02/02/24 11:27 BP 130/89 02/02/24 11:27 Pulse Ox 95 02/02/24 11:27 O2 Del Method Room Air 02/02/24 11:27 Allergies Allergy/AdvReac Type Severity Reaction Status Date / Time No Known Allergies Allergy Verified 02/02/24 11:26 Home Medications Medication Instructions Recorded Confirmed Type furosemide 20 mg tablet (Lasix) 20 mg PO DAILY 08/13/23 01/26/24 History gabapentin 100 mg capsule 600 mg PO TID 08/13/23 01/26/24 History omeprazole 20 mg capsule,delayed 20 mg PO DAILY 08/13/23 01/26/24 History release tizanidine 2 mg tablet 2 mg PO Q8H PRN Muscle Pain 08/13/23 01/26/24 History melatonin 10 mg tablet 10 mg PO HS PRN Sleep 10/10/23 01/26/24 History oxybutynin chloride 15 mg 15 mg PO HS 10/10/23 01/26/24 History tablet,extended release 24 hr cholecalciferol (vitamin D3) 50 50 mcg PO DAILY 11/09/23 01/26/24 History mcg (2,000 unit) capsule donepezil 10 mg tablet 10 mg PO QHS 11/09/23 01/26/24 History levothyroxine 150 mcg capsule 150 mcg PO DAILY 11/09/23 01/26/24 History pravastatin 10 mg tablet 10 mg PO DAILY #90 tabs 12/01/23 01/26/24 Rx albuterol sulfate 90 mcg/actuation 1 puff inhalation BID 01/26/24 01/26/24 History aerosol inhaler aspirin 81 mg chewable tablet 81 mg PO DAILY 01/26/24 01/26/24 History cetirizine 10 mg tablet 10 mg PO DAILY 01/26/24 01/26/24 History clobetasol 0.05 % topical ointment 1 applic topical BID 01/26/24 01/26/24 History fluticasone propionate 230 2 puff inhalation DAILY 01/26/24 01/26/24 History mcg-salmeterol 21 mcg/actuation HFA inhaler (Advair HFA) fluticasone propionate 44 2 puff inhalation BID 01/26/24 01/26/24 History mcg/actuation HFA aerosol inhaler pantoprazole 40 mg tablet,delayed 40 mg PO BID 01/26/24 01/26/24 History release rosuvastatin 40 mg tablet 40 mg PO DAILY 01/26/24 01/26/24 History spironolactone 25 mg tablet 25 mg PO DAILY 01/26/24 01/26/24 History Patient hx anesthesia problems: none Family hx anesthesia problems: none Results Review: All pre-operative results and documents have been reviewed as part of the pre-operative evaluation. [facility] Past Medical History Medical History Acute GI bleeding Acute lower GI bleeding Anemia Arthritis BPH (benign prostatic hyperplasia) Chronic a-fib Dementia Diverticulitis Diverticulosis DVT prophylaxis GERD (gastroesophageal reflux disease) Hypothyroid Myasthenia gravis Surgical History Surgical History H/O arthroscopic knee surgery H/O thyroidectomy Family History Family History Mother , age 85 Acute myocardial infarction Hypertension Heart disease Father , age 70 Acute myocardial infarction Chronic obstructive pulmonary disease History of blood clots Hypertension Heart disease Sibling Acute myocardial infarction Hypertension Heart disease Other Heart disease Social History Social History (System 01/26/24 @ 10:57 by Regla Billingsley) Social History: 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
--- NOTE | 2024-02-02 12:40 | PM.HPGS ---
History of Present Illness History of Present Illness Consent: Risks, benefits, and alternatives have been discussed and questions answered. Patient agrees to proceed with procedure. Chief complaint: Dysphagia, Neoplasm screening Narrative: Abrahan Gtz Jr. is a 78 year old male with dysphagia, also history of colon polyp Review of Systems Review of Systems: All systems reviewed & are unremarkable except as noted in HPI and below PMFSH Past Medical History Medical History (Updated 02/02/24 @ 12:41 by Irvin Gonzalez MD) Acute GI bleeding Acute lower GI bleeding Anemia Arthritis BPH (benign prostatic hyperplasia) Chronic a-fib Colon polyp Dementia Diverticulitis Diverticulosis DVT prophylaxis Dysphagia GERD (gastroesophageal reflux disease) Hypothyroid Myasthenia gravis Surgical History Surgical History (System 01/26/24 @ 10:57 by Regla Billingsley) H/O arthroscopic knee surgery H/O thyroidectomy Family History Family History Mother , age 85 Acute myocardial infarction Hypertension Heart disease Father , age 70 Acute myocardial infarction Chronic obstructive pulmonary disease History of blood clots Hypertension Heart disease Sibling Acute myocardial infarction Hypertension Heart disease Other Heart disease Social History Social History (System 01/26/24 @ 10:57 by Regla Billingsley) Social History: 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[employer], 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[employer], 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 3 children living and well Smoking packs per day: 1 Smoking cigarettes per day: 20.0 Years smoked: 4 Smoking pack-years: 4.00 Smoking status: Former smoker Alcohol intake: never Drinks per week: 2 Substance use: never Substance use type: does not use Do You Feel Safe in your Home?: Yes Lack of Transportation: No Lack of Food: Never True Current Housing: I Have Housing Concerned About Future Housing: No Difficulty Paying Gas/Electric Bills: No Difficulty Paying for Meds: No Currently Unemployed: No Education: Bachelor's Degree Difficulty w/ Childcare or Family Care: No Living arrangements: with family Gender identity (if verbalized by the patient): Male Spiritual care concerns: No Meds Home Medications and Allergies Home Medications Medication Instructions Recorded Confirmed Type furosemide 20 mg tablet (Lasix) 20 mg PO DAILY 08/13/23 01/26/24 History gabapentin 100 mg capsule 600 mg PO TID 08/13/23 01/26/24 History omeprazole 20 mg capsule,delayed 20 mg PO DAILY 08/13/23 01/26/24 History release tizanidine 2 mg tablet 2 mg PO Q8H PRN Muscle Pain 08/13/23 01/26/24 History melatonin 10 mg tablet 10 mg PO HS PRN Sleep 10/10/23 01/26/24 History oxybutynin chloride 15 mg 15 mg PO HS 10/10/23 01/26/24 History tablet,extended release 24 hr cholecalciferol (vitamin D3) 50 50 mcg PO DAILY 11/09/23 01/26/24 History mcg (2,000 unit) capsule donepezil 10 mg tablet 10 mg PO QHS 11/09/23 01/26/24 History levothyroxine 150 mcg capsule 150 mcg PO DAILY 11/09/23 01/26/24 History pravastatin 10 mg tablet 10 mg PO DAILY #90 tabs 12/01/23 01/26/24 Rx albuterol sulfate 90 mcg/actuation 1 puff inhalation BID 01/26/24 01/26/24 History aerosol inhaler aspirin 81 mg chewable tablet 81 mg PO DAILY 01/26/24 01/26/24 History cetirizine 10 mg tablet 10 mg PO DAILY 01/26/24 01/26/24 History clobetasol 0.05 % topical ointment 1 applic topical BID 01/26/24 01/26/24 History fluticasone propionate 230 2 puff inhalation DAILY 01/26/24 01/26/24 History mcg-salmeterol 21 mcg/actuation HFA inhaler (Advair HFA) fluticasone propionate 44 2 puff inhalation BID 01/26/24 01/26/24 History mcg/actuation HFA aerosol inhaler pantoprazole 40 mg tablet,delayed 40 mg PO BID 01/26/24 01/26/24 History release rosuvastatin 40 mg t
--- NOTE | 2024-02-02 12:52 | SUR.OPER ---
EGD: START-1253 END-1257, COLON: START-1303 END-1318
[2024-02-02 13:23] VITALS: BP 112/75; PULSE 67; RESP 16; O2SAT 100
[2024-02-02 13:33] VITALS: BP 115/72; PULSE 63; RESP 16; O2SAT 100
[2024-02-02 13:43] VITALS: BP 139/77; PULSE 64; RESP 21; O2SAT 100
== END 2024-02-02 14:00 | disposition home or self-care (01) ==
PROVIDERS: PCP Family Medicine; Visit Provider Internal Medicine Gastroenterology
PROC: 0DJ08ZZ Inspection of Upper Intestinal Tract, Via Natural or Artificial Opening Endoscopic (ICD-10-PCS; CPT 43235; principal; 2024-02-02 12:30)
DX: Z12.11 Encounter for screening for malignant neoplasm of colon (principal); D12.2 Benign neoplasm of ascending colon; D12.0 Benign neoplasm of cecum; K57.30 Diverticulosis of large intestine without perforation or abscess without bleeding; K29.50 Unspecified chronic gastritis without bleeding; K22.5 Diverticulum of esophagus, acquired; K44.9 Diaphragmatic hernia without obstruction or gangrene; K25.9 Gastric ulcer, unspecified as acute or chronic, without hemorrhage or perforation; Z79.51 Long term (current) use of inhaled steroids; Z79.82 Long term (current) use of aspirin; I48.20 Chronic atrial fibrillation, unspecified; F03.90 Unspecified dementia, unspecified severity, without behavioral disturbance, psychotic disturbance, mood disturbance, and anxiety; N40.0 Benign prostatic hyperplasia without lower urinary tract symptoms; E03.9 Hypothyroidism, unspecified; D64.9 Anemia, unspecified; Z87.891 Personal history of nicotine dependence
CPT/HCPCS: 45385; 43239; 88305; J2371; J2704; J7120

== ENCOUNTER 2024-02-14 13:25 | Emergency (ER) | payer MEDICARE, SELFPAY ==
--- NOTE | ~2024-02-14 | XR_ITS ---
EXAMINATION: XR shoulder LT min 2V DATE: 02/14/2024 15:32 INDICATION: Left shoulder pain. Fall. TECHNIQUE: 4 views of left shoulder were obtained. COMPARISON: Left shoulder radiographs 02/14/2020, chest CT 10/10/2023 FINDINGS: There is inferior subluxation of humeral head with respect to glenoid. No fracture. There i s mild osteoarthritis of glenohumeral joint and moderate osteoarthritis of acromioclavicular joint. IMPRESSION: 1. Inferior subluxation of the humeral head with respect to glenoid suggesting a glenohumeral joint e ffusion. 2. Polyarticular osteoarthritis. Reviewed, dictated and finalized at location A. IMPRESSION: 1. Inferior subluxation of the humeral head with respect to glenoid suggesting a glenohumeral joint effusion. 2. Polyarticular osteoarthritis.
--- NOTE | ~2024-02-14 | CT_ITS ---
EXAMINATION: CT cervical spine wo con DATE: 02/14/2024 15:25 INDICATION: Head injury. Neck pain. TECHNIQUE: Computed tomography (CT) of the cervical spine was performed without intravenous contrast. Automated exposure control and iterative reconstruction technique were employed. The dose-length pro duct was 681.00 mGy-cm. COMPARISON: CT cervical spine 02/14/2020 FINDINGS: There are changes of thyroidectomy. There is material in the esophagus. There is 9 degrees dextrocurvature of cervical spine. There is 2 mm retrolisthesis of C4 on C5 and C5 on C6. There is mi ld chronic anterior wedging of T3 vertebral body. There is severely decreased disc height from C4-C5 through T2-T3. The following disc levels are specifically discussed: C2-C3: There is mild bilateral uncovertebral joint osteoarthritis. There is mild left facet joint ost eoarthritis. There is no neural foraminal stenosis. There is no central canal stenosis. C3-C4: There is mild bilateral uncovertebral joint osteoarthritis. There is moderate left facet joint osteoarthritis. There is mild left neural foraminal stenosis. There is mild central canal stenosis. C4-C5: There is severe right and mild left uncovertebral joint osteoarthritis. There is mild left fac et joint osteoarthritis. There is mild bilateral neural foraminal stenosis. There is mild central can al stenosis. C5-C6: There is severe bilateral uncovertebral joint osteoarthritis. There is mild bilateral facet robin int osteoarthritis. There is mild bilateral neural foraminal stenosis. There is mild central canal st enosis. C6-C7: There is severe bilateral uncovertebral joint osteoarthritis. There is mild right and moderate left facet joint osteoarthritis. There is mild bilateral neural foraminal stenosis. There is mild ce ntral canal stenosis. C7-T1: There is moderate bilateral uncovertebral joint osteoarthritis. There is moderate bilateral fa cet joint osteoarthritis. There is mild bilateral neural foraminal stenosis. There is no central dianne l stenosis. IMPRESSION: 1. No fracture. 2. Severe cervical spondylosis. Reviewed, dictated and finalized at location A.
--- NOTE | ~2024-02-14 | CT_ITS ---
EXAMINATION: CT brain wo con DATE: 02/14/2024 15:25 INDICATION: Headache post fall TECHNIQUE: Computed tomography (CT) of the head was performed without intravenous contrast. Sagittal and coronal reconstructions were performed. The mA was adjusted according to patient size. Iterative reconstruction technique was employed. The dose-length product was 681.00 mGy-cm. COMPARISON: head CT dated 02/14/20 FINDINGS: No fracture. Old lacunar infarcts at the bilateral basal ganglia, right larger than left. Dystrophic calcifications at the bilateral basal ganglia, left greater than right. No acute intracranial hemorrh age, acute infarction or abnormal extra axial fluid collection. There is mild scattered white matter hypoattenuation consistent with chronic small vessel ischemic disease. Symmetric prominence of the kennedy lci consistent with mild age-appropriate diffuse cerebral volume loss. Ventricles are normal and symm etric. No mass/mass effect. Changes of bilateral intraocular lens replacement. The orbits and mastoid air cells are normal. Moderate mucosal thickening in the bilateral ethmoid and maxillary sinuses wit h dependently layering bubbly mucus in the left maxillary sinus. IMPRESSION: 1. No fracture or acute intracranial process. The line 2. Old lacunar infarcts at the bilateral basal ganglia. 3. Age-related changes including mild diffuse volume loss and mild scattered white matter hypoattenua tion consistent with chronic small vessel ischemic disease. 4. Sinus disease. Reviewed, dictated and finalized at location A. IMPRESSION: 1. No fracture or acute intracranial process. The line 2. Old lacunar infarcts at the bilateral basal ganglia. 3. Age-related changes including mild diffuse volume loss and mild scattered wh ite matter hypoattenuation consistent with chronic small vessel ischemic diseas e. 4. Sinus disease.
[2024-02-14 13:30] VITALS: BP 106/61; PULSE 73; RESP 17; TEMP 36.4; O2SAT 98
--- NOTE | 2024-02-14 15:14 | ED.FALL ---
HPI - Fall General Chief Complaint: Fall Stated Complaint: fall Time Seen by Provider: 02/14/24 15:10 Focused HPI: Abrahan is a 78-year-old male patient presenting to the emergency room today with complaints of a ground level fall. He reports when he got out of the car he was shutting the heavy door and this knocked him back. States he hit the back of his head- no loss of consciousness, injured the left shoulder, and is complaining of some neck discomfort. History of a stroke with left-sided paralysis General: Well-developed, well nourished, in no apparent distress Head: Normocephalic, atraumatic. Cardio: Regular rate and rhythm, s1 and s2 normal, no murmur appreciated. Resp: Clear to auscultation bilaterally, no rhonchi, rales, wheezing or rubs. Musculoskeletal: No deformity, tender to palpation over the cervical spine and the left shoulder joint, limited range of motion to left shoulder or joint due to pain and past stroke, peripheral pulse strong, no edema, no cyanosis, normal gait and station Patient screened in triage and initial orders placed. Additional care and disposition to be based upon diagnostic testing and treatment. Source: patient and family Mode of arrival: ambulatory Limitations: no limitations Related Data Home Medications Medication Instructions Recorded Confirmed furosemide 20 mg tablet (Lasix) 20 mg PO DAILY 08/13/23 01/26/24 gabapentin 100 mg capsule 600 mg PO TID 08/13/23 01/26/24 tizanidine 2 mg tablet 2 mg PO Q8H PRN Muscle Pain 08/13/23 01/26/24 melatonin 10 mg tablet 10 mg PO HS PRN Sleep 10/10/23 01/26/24 oxybutynin chloride 15 mg 15 mg PO HS 10/10/23 01/26/24 tablet,extended release 24 hr cholecalciferol (vitamin D3) 50 50 mcg PO DAILY 11/09/23 01/26/24 mcg (2,000 unit) capsule donepezil 10 mg tablet 10 mg PO QHS 11/09/23 01/26/24 levothyroxine 150 mcg capsule 150 mcg PO DAILY 11/09/23 01/26/24 albuterol sulfate 90 mcg/actuation 1 puff inhalation BID 01/26/24 01/26/24 aerosol inhaler aspirin 81 mg chewable tablet 81 mg PO DAILY 01/26/24 01/26/24 cetirizine 10 mg tablet 10 mg PO DAILY 01/26/24 01/26/24 clobetasol 0.05 % topical ointment 1 applic topical BID 01/26/24 01/26/24 fluticasone propionate 230 2 puff inhalation DAILY 01/26/24 01/26/24 mcg-salmeterol 21 mcg/actuation HFA inhaler (Advair HFA) fluticasone propionate 44 2 puff inhalation BID 01/26/24 01/26/24 mcg/actuation HFA aerosol inhaler rosuvastatin 40 mg tablet 40 mg PO DAILY 01/26/24 01/26/24 spironolactone 25 mg tablet 25 mg PO DAILY 01/26/24 01/26/24 Allergies Allergy/AdvReac Type Severity Reaction Status Date / Time No Known Allergies Allergy Verified 02/02/24 11:26 [facility] Past Medical History Medical History (Updated 02/14/24 @ 15:56 by Roberto Betts, LENS CLEANER) Acute GI bleeding Acute lower GI bleeding Anemia Arthritis BPH (benign prostatic hyperplasia) Chronic a-fib Colon polyp Dementia Diverticulitis Diverticulosis DVT prophylaxis Dysphagia Esophageal diverticulum, acquired GERD (gastroesophageal reflux disease) Hypothyroid Myasthenia gravis Surgical History Surgical History (System 01/26/24 @ 10:57 by Regla Billingsley) H/O arthroscopic knee surgery H/O thyroidectomy Family History Family History Mother , age 85 Acute myocardial infarction Hypertension Heart disease Father , age 70 Acute myocardial infarction Chronic obstructive pulmonary disease History of blood clots Hypertension Heart disease Sibling Acute myocardial infarction Hypertension Heart disease Other Heart disease Social History Social History (System 01/26/24 @ 10:57 by Regla Billingsley) Social History: 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
[2024-02-14 16:28] VITALS: BP 138/85; PULSE 67; RESP 14; TEMP 36.8; O2SAT 98
== END 2024-02-14 16:29 | disposition home or self-care (01) ==
LOC: ANHED 16:12
PROVIDERS: Emergency Provider Nurse Practitioner Family; PCP Family Medicine
DX: S00.83XA Contusion of other part of head, initial encounter (principal); M25.512 Pain in left shoulder; M54.2 Cervicalgia; M25.412 Effusion, left shoulder; D64.9 Anemia, unspecified; M19.90 Unspecified osteoarthritis, unspecified site; F03.90 Unspecified dementia, unspecified severity, without behavioral disturbance, psychotic disturbance, mood disturbance, and anxiety; K57.90 Diverticulosis of intestine, part unspecified, without perforation or abscess without bleeding; K21.9 Gastro-esophageal reflux disease without esophagitis; E03.9 Hypothyroidism, unspecified; V09.00XA Pedestrian injured in nontraffic accident involving unspecified motor vehicles, initial encounter
CPT/HCPCS: 70450; 72125; 73030; 99284; A4565

== ENCOUNTER 2024-07-10 08:38 | Outpatient (CLI) | payer MEDICARE, SELFPAY ==
--- NOTE | ~2024-07-10 | NM_ITS ---
EXAMINATION: NM mónica stress w perfusion DATE: 07/10/2024 16:09 INDICATION: Abnormal electrocardiogram. Preprocedural cardiovascular exam. TECHNIQUE: Rest images were obtained following intravenous administration of 10.9 mCi Tc99m tetrofosm in (Myoview). The patient was infused intravenously with Lexiscan (regadenoson). Then, 33.7 mCi Tc99m tetrofosmin (Myoview) was administered intravenously, and stress images were obtained. Data was catherien nstructed into short axis and horizontal and vertical long axis SPECT images. Gated SPECT images were also obtained. COMPARISON: None. FINDINGS: There is no definite reversible or fixed perfusion abnormality to suggest ischemia or infar ction. There is no segmental wall motion abnormality. Left ventricular ejection fraction measures > 70%. IMPRESSION: 1. No definite ischemia or infarct. 2. Normal left ventricular ejection fraction measuring >70%. Reviewed, dictated and finalized at location A.
--- NOTE | 2024-07-10 09:09 | EST_ITS ---
Patient Info Name: Abrahan Gtz Age: 78 years : 1945 Gender: Male Ht: 70 in Wt: 195 lbs BSA: 2.11 m2 HR: 70 bpm BP: 128 / 101 mmHg Exam Date: 07/10/2024 10:23 AM Exam Location: Echo Lab Patient Status: Outpatient Admit Date: 07/10/2024 Staff Ordering Physician: Finn Caban DO Attending Provider: Finn Caban DO Exercise Technologist: Felecia Leary RDCS Exercise Physician: Finn Caban DO Exam Type: CA stress mónica w NM Study Info A regadenoson stress test was performed. Summary 1. 1. Negative lexiscan stress test for ischemic ST changes by ECG criteria. 2. 2. Stable hemodynamics throughout the test. 3. 3. Nuclear scan to follow and will be reported separately. Please correlate with it. 4. 4. Patient informed of the above results. Protocol: Lexiscan Stress ECG Details Stage: REST Duration (min): 4 min : 10 sec HR (bpm): 53 SBP (mmHg): 128 DBP (mmHg): 101 Stage: REST Duration (min): 14 min : 32 sec HR (bpm): 56 SBP (mmHg): 128 DBP (mmHg): 101 Stage: STAGE 1 Duration (min): 1 min : 0 sec HR (bpm): 65 SBP (mmHg): 133 DBP (mmHg): 85 Stage: RECOVERY Duration (min): 1 min : 0 sec HR (bpm): 78 SBP (mmHg): 133 DBP (mmHg): 85 Stage: RECOVERY Duration (min): 2 min : 0 sec HR (bpm): 75 SBP (mmHg): 133 DBP (mmHg): 85 Stage: RECOVERY Duration (min): 3 min : 0 sec HR (bpm): 69 SBP (mmHg): 121 DBP (mmHg): 78 Stage: RECOVERY Duration (min): 3 min : 9 sec HR (bpm): 66 SBP (mmHg): 121 DBP (mmHg): 78 Rest HR: 56 bpm Peak HR: 85 bpm Rest Sys BP: 128 mmHg Peak Sys BP: 133 mmHg Max Pred HR: 141 bpm % Max Pred HR: 60 % Target HR: 120 bpm Max RPP: 11,305 bpm*mmHg Termination Reason: Completed protocol Cardiac Symptoms: Shortness of breath Total Time: 1 min : 0 sec Rest Espino BP: 101 mmHg Peak Espino BP: 85 mmHg Total Dose: 0.4 mg Resting ECG Sinus bradycardia, anterolateral infarct, inferior infarct, age indeterminate. Stress ECG No ST changes. Arrhythmias None. Report Signatures
== END 2024-07-10 08:39 | disposition home or self-care (01) ==
LOC: ANHCARD 08:39
PROVIDERS: PCP Family Medicine; Visit Provider Internal Medicine Cardiovascular Disease
DX: Z01.810 Encounter for preprocedural cardiovascular examination (principal)
CPT/HCPCS: 78452; 93017; A9502; J2785

== ENCOUNTER 2024-07-31 08:42 | Emergency (ER) | payer MEDICARE, SELFPAY ==
--- NOTE | ~2024-07-31 | CT_ITS ---
CT of the Abdomen and Pelvis: Indication: Constipation Technique: 2.5 mm axial scans were obtained through the abdomen and pelvis following intravenous adm inistration of 100 cc of Omnipaque 350. Dose reduction technique was used on this scan by utilizing a utomated exposure control and iterative reconstruction technique. The dose-length product (DLP) was 9 27.03 mGy-cm. COMPARISON: 10/10/2023 Findings: Scans through the lung bases essentially stable probable small hiatal hernia. Hepatic and renal cysts are present. The spleen, pancreas, gallbladder, and adrenal glands are within normal limits. There are atherosclerotic calcifications of the aorta. No lymphadenopathy. No bowel obstruction or bowel wall thickening. Extensive stool is consistent with history of constipa tion. Images through the pelvis were performed. Urinary bladder unremarkable. Prostate gland enlarged. Fat- containing inguinal hernias are present bilaterally. Impression: Constipation. Bilateral fat-containing ventral hernias. Reviewed, dictated and finalized at [facility]. Impression: Constipation. Bilateral fat-containing ventral hernias.
[2024-07-31 08:53] VITALS: BP 151/95; PULSE 87; RESP 17; TEMP 37; O2SAT 99
[2024-07-31 09:06] LABS: Basophils Absolute Auto 0.1 K/mm3 (0.0-0.1); Basophils Percent Auto 0.5 % (0.2-1.2); Eosinophils Absolute Auto 0.3 K/mm3 (0-0.3); Eosinophils Percent Auto 2.1 % (0-4.4); Hematocrit 39.8 % (42.0-52.0); Hemoglobin 13.2 g/dL (14.0-18.0); Immature Granulocyte Absolute 0.04 K/mm3 (0.00-0.031); Immature Granulocyte Percent A 0.3 % (0-0.5); Lymphocytes Absolute Auto 2.02 K/mm3 (0.9-3.2); Lymphocytes Percent Auto 16.7 % (18.3-44.2); Mean Corpuscular HGB Conc 33.2 g/dl (32-36); Mean Corpuscular Hemoglobin 30.8 pg (26-34); Mean Corpuscular Volume 92.8 fl (80-100); Mean Platelet Volume 10.5 fl (7.4-10.4); Monocytes Percent Auto 8.2 % (2.6-8.5); Neutrophils Absolute Auto 8.7 K/mm3 (1.3-6.7); Neutrophils Percent Auto 72.2 % (45.5-73.1); Platelet Count Result 256 k/mm3 (150-375); Red Blood Count 4.29 M/mm3 (4.6-6.20); Red Cell Distribution Width 17.1 % (11.5-14.5); White Blood Count 12.1 K/mm3 (4.5-10.0)
[2024-07-31 09:31] LABS: Alanine Aminotransferase 20 U/L (6-50); Albumin Level 4.4 g/dL (3.5-5.1); Alkaline Phosphatase 86 U/L (38-126); Anion Gap 8 mmol/L (4-12); Aspartate Amino Transferase 38 U/L (17-59); Bilirubin,Total 1.1 mg/dL (0.2-1.3); Blood Urea Nitrogen 17 mg/dL (9-20); Calcium 10.1 mg/dL (8.4-10.2); Carbon Dioxide 23 mmol/L (22-30); Chloride 104 mmol/L (98-107); Estimated CRCL calculation 46 ml/min; Estimated Glomerular Filt Rate > 60; Glucose 132 mg/dL (65-110); Lipase 70 U/L (23-300); Potassium 4.6 mmol/L (3.4-5.0); Sodium 135 mmol/L (137-145)
--- NOTE | 2024-07-31 09:48 | ED.GENADULT ---
HPI - General Adult General Chief complaint: Abdominal Pain Stated complaint: constipation Time Seen by Provider: 07/31/24 08:45 History of Present Illness HPI narrative: 78-year-old male presenting to the emergency department for evaluation for worsening constipation. Patient states he has been having increased rectal pressure and only passing small amounts of stool. Related Data Home Medications Medication Instructions Recorded Confirmed furosemide 20 mg tablet (Lasix) 20 mg PO DAILY 08/13/23 05/31/24 gabapentin 100 mg capsule 600 mg PO TID 08/13/23 05/31/24 tizanidine 2 mg tablet 2 mg PO Q8H PRN Muscle Pain 08/13/23 05/31/24 melatonin 10 mg tablet 10 mg PO HS PRN Sleep 10/10/23 05/31/24 oxybutynin chloride 15 mg 15 mg PO HS 10/10/23 05/31/24 tablet,extended release 24 hr cholecalciferol (vitamin D3) 50 50 mcg PO DAILY 11/09/23 05/31/24 mcg (2,000 unit) capsule donepezil 10 mg tablet 10 mg PO QHS 11/09/23 05/31/24 levothyroxine 150 mcg capsule 150 mcg PO DAILY 11/09/23 05/31/24 albuterol sulfate 90 mcg/actuation 1 puff inhalation BID 01/26/24 05/31/24 aerosol inhaler aspirin 81 mg chewable tablet 81 mg PO DAILY 01/26/24 05/31/24 cetirizine 10 mg tablet 10 mg PO DAILY 01/26/24 05/31/24 clobetasol 0.05 % topical ointment 1 applic topical BID 01/26/24 05/31/24 fluticasone propionate 230 2 puff inhalation DAILY 01/26/24 05/31/24 mcg-salmeterol 21 mcg/actuation HFA inhaler (Advair HFA) fluticasone propionate 44 2 puff inhalation BID 01/26/24 05/31/24 mcg/actuation HFA aerosol inhaler rosuvastatin 40 mg tablet 40 mg PO DAILY 01/26/24 05/31/24 spironolactone 25 mg tablet 25 mg PO DAILY 01/26/24 05/31/24 Allergies Allergy/AdvReac Type Severity Reaction Status Date / Time No Known Allergies Allergy Verified 07/31/24 08:58 Review of Systems Review of Systems: All systems reviewed & are unremarkable except as noted in HPI and below PMFSH Past Medical History Medical History Acute GI bleeding Acute lower GI bleeding Anemia Arthritis BPH (benign prostatic hyperplasia) Chronic a-fib Colon polyp Dementia Diverticulitis Diverticulosis DVT prophylaxis Dysphagia Esophageal diverticulum, acquired GERD (gastroesophageal reflux disease) Hypothyroid Myasthenia gravis Surgical History Surgical History H/O arthroscopic knee surgery H/O thyroidectomy Family History Family History Mother , age 85 Acute myocardial infarction Hypertension Heart disease Father , age 70 Acute myocardial infarction Chronic obstructive pulmonary disease History of blood clots Hypertension Heart disease Sibling Acute myocardial infarction Hypertension Heart disease Other Heart disease Social History Social History Social History: 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[employer], 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[employer], 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 living and well Smoking packs per day: 1 Smoking cigarettes per day: 20.0 Years smoked: 4 Smoking pack-years: 4.00 Smoking status: Former smoker Alcohol intake: never Drinks per week: 2 Substance use: never Substance use type: does not use Do You Feel Safe in your Home?: Yes Lack of Transportation: No Lack of Food: Never True Current Housing: I Have Housing Concerned About Future Housing: No Difficulty Paying Gas/Electric Bills: No Difficulty Paying for Meds: No Currently Unemployed: No Education: Bachelor's Degree Difficulty w/ Childcare or Family Care: No Living arrangements: with family Gender identity (if verbalized by the patient): Male Spiritual care concerns: No Exam Narrative: APPEARANCE: Well appearing, no pain, no distress
[2024-07-31 10:45] LABS: Add Urine Microscopic? NO; Appearance Urine Clear (Clear); Bilirubin Urine Negative (Negative); Blood Urine Negative (Negative); Color Urine Yellow (Yellow); Glucose Urine UA Negative (Negative); Ketones Urine Negative (Negative); Leukocyte Esterase Ur Negative LEU/UL (Negative); Nitrate Urine Negative (Negative); Protein Urine Negative (Negative); Specific Grav Ur > 1.045 (1.001-1.035)
[2024-07-31 11:45] VITALS: BP 155/78; PULSE 66; RESP 15; O2SAT 99
== END 2024-07-31 11:47 | disposition home or self-care (01) ==
PROVIDERS: Emergency Provider Emergency Medicine; PCP Family Medicine
DX: K56.41 Fecal impaction (principal); D64.9 Anemia, unspecified; M19.90 Unspecified osteoarthritis, unspecified site; N40.0 Benign prostatic hyperplasia without lower urinary tract symptoms; I48.91 Unspecified atrial fibrillation; F03.90 Unspecified dementia, unspecified severity, without behavioral disturbance, psychotic disturbance, mood disturbance, and anxiety; K57.90 Diverticulosis of intestine, part unspecified, without perforation or abscess without bleeding; K21.9 Gastro-esophageal reflux disease without esophagitis; E03.9 Hypothyroidism, unspecified
CPT/HCPCS: 36415; 74177; 80053; 81003; 83690; 85025; 99284; Q9967

== ENCOUNTER 2024-08-26 08:54 | Emergency (ER) | payer MEDICARE, SELFPAY ==
[2024-08-26 09:04] VITALS: BP 134/82; PULSE 75; RESP 16; TEMP 35.6; O2SAT 97
--- NOTE | 2024-08-26 09:15 | ED.SKABFB ---
HPI - Skin/Abscess/Foreign Bdy General Chief complaint: Skin/Abscess/Foreign Body Stated complaint: rash on body Source: patient, RN notes reviewed and old records reviewed Mode of arrival: ambulatory Limitations: no limitations History of Present Illness HPI narrative: Patient presents with complaints of itchy rash scattered over the body. He reports symptoms have been present for about 10 days. He denies any change in lotion, soap, detergent. Reports sleeps in same bed as he does, she has no such rash. He denies any new medications. Denies any unusual outdoor activities. No pets in the home. Denies any pain. No injury or trauma. No other concerns or complaints at this time. He reports he is using an unknown salve for his symptoms Related Data Home Medications Medication Instructions Recorded Confirmed furosemide 20 mg tablet (Lasix) 20 mg PO DAILY 08/13/23 08/26/24 gabapentin 100 mg capsule 600 mg PO TID 08/13/23 08/26/24 tizanidine 2 mg tablet 2 mg PO Q8H PRN Muscle Pain 08/13/23 08/26/24 melatonin 10 mg tablet 10 mg PO HS PRN Sleep 10/10/23 08/26/24 oxybutynin chloride 15 mg 15 mg PO HS 10/10/23 08/26/24 tablet,extended release 24 hr cholecalciferol (vitamin D3) 50 50 mcg PO DAILY 11/09/23 08/26/24 mcg (2,000 unit) capsule donepezil 10 mg tablet 10 mg PO QHS 11/09/23 08/26/24 levothyroxine 150 mcg capsule 150 mcg PO DAILY 11/09/23 08/26/24 albuterol sulfate 90 mcg/actuation 1 puff inhalation BID 01/26/24 08/26/24 aerosol inhaler aspirin 81 mg chewable tablet 81 mg PO DAILY 01/26/24 08/26/24 cetirizine 10 mg tablet 10 mg PO DAILY 01/26/24 08/26/24 clobetasol 0.05 % topical ointment 1 applic topical BID 01/26/24 08/26/24 fluticasone propionate 230 2 puff inhalation DAILY 01/26/24 08/26/24 mcg-salmeterol 21 mcg/actuation HFA inhaler (Advair HFA) fluticasone propionate 44 2 puff inhalation BID 01/26/24 08/26/24 mcg/actuation HFA aerosol inhaler rosuvastatin 40 mg tablet 40 mg PO DAILY 01/26/24 08/26/24 spironolactone 25 mg tablet 25 mg PO DAILY 01/26/24 08/26/24 Allergies Allergy/AdvReac Type Severity Reaction Status Date / Time No Known Allergies Allergy Verified 08/26/24 08:58 Review of Systems Review of Systems: All systems reviewed & are unremarkable except as noted in HPI and below Constitutional: Constitutional: Reports no additional constitutional complaints ENT: Reports system reviewed and no additional complaints, except as documented Cardiovascular: Cardiovascular: Reports no additional cardiovascular complaints Respiratory: Respiratory: Reports no additional respiratory complaints Gastrointestinal: Gastrointestinal: Reports no additional gastrointestinal complaints Integumentary/Breasts: Skin/Breast: Reports system reviewed and no additional complaints, except as docu, Reports as per HPI, Reports pruritus and Reports rash PMFSH Past Medical History Medical History Acute GI bleeding Acute lower GI bleeding Anemia Arthritis BPH (benign prostatic hyperplasia) Chronic a-fib Colon polyp Dementia Diverticulitis Diverticulosis DVT prophylaxis Dysphagia Esophageal diverticulum, acquired GERD (gastroesophageal reflux disease) Hypothyroid Myasthenia gravis Surgical History Surgical History H/O arthroscopic knee surgery H/O thyroidectomy Family History Family History Mother , age 85 Acute myocardial infarction Hypertension Heart disease Father , age 70 Acute myocardial infarction Chronic obstructive pulmonary disease History of blood clots Hypertension Heart disease Sibling Acute myocardial infarction Hypertension Heart disease Other Heart disease Social History Social History Social History: 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, 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 [employer], and 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 3 children living and well Smoking packs per day: 1 Smoking cigarettes per day: 20.0 Years smoked: 4 Smoking pack-years: 4.00 Smoking status: Former smoker Alcohol intake: never Drinks per week: 2 Substance use: never Substance use type: does not use Do You Feel Safe in your Home?: Yes Lack of Transportation: No Lack of Food: Never True Current Housing: I Have Housing Concerned About Future Housing: No Difficulty Paying Gas/Electric Bills: No Difficulty Paying for Meds: No Currently Unemployed: No Education: Bachelor's Degree Difficulty w/ Childcare or Family Care: No Living arrangements: with family Gender identity (if verbalized by the patient): Male Spiritual care concerns: No Comments At the time of my signature, I reviewed and agree with the nursing past medical, surgical, social, and family history. There is no relevant family history pertinent to the patient complaint. Exam Const: General: cooperative, no acute distress, alert and awake Orientation/consciousness: oriented to person, oriented to place and oriented to time HENMT: Head: normal to inspection Resp: Effort & Inspection: normal respiratory effort and able to speak in complete sentences Auscultation: clear to auscultation bilaterally, no crackles, no rales, no rhonchi and no wheezes Cardio: Palpation: normal PMI Rate: regular rate Rhythm: regular rhythm Heart sounds: S1 normal heart sound present and S2 normal heart sound present Skin: Other: Small raised red bumps consistent with insect bites scattered over the body, particularly on the back and to the right axilla, right leg. No sign of secondary infection to any site Neuro: General: oriented to person, oriented to place and oriented to time Cranial nerves: Yes CN's II-XII intact bilaterally Psych: Appearance: grossly normal Thought process: Normal thought process present Insight: Good insight present (Psych) Judgement: Good judgement present (Psych) Course Course Level of Care: Express Care Visit Vital Signs Vital signs: Vital Signs Temperature 96.1 F L 08/26/24 09:04 Pulse Rate 75 08/26/24 09:04 Respiratory Rate 16 08/26/24 09:04 Blood Pressure 134/82 08/26/24 09:04 Pulse Oximetry 97 08/26/24 09:04 Oxygen Delivery Room Air 08/26/24 09:04 Temperature 96.1 F L 08/26/24 09:04 Pulse Rate 75 08/26/24 09:04 Respiratory Rate 16 08/26/24 09:04 Blood Pressure 134/82 08/26/24 09:04 Pulse Oximetry 97 08/26/24 09:04 Oxygen Delivery Room Air 08/26/24 09:04 Reviewed MDM - Skin/Abscess/Foreign Bdy MDM Narrative Medical decision making narrative: Insect bites versus contact dermatitis. Treat symptomatically with p.o. steroids and topical steroid ointment. Hesitate to prescribed hydroxyzine given patient frailty. Discharge instructions reviewed with patient, as well as provided in writing per nursing staff. The instructions also include specific and strict return/GO TO THE ER as well as f/u information. All questions have been answered, and the patient deny any further questions with discharge and discharge plan. Some parts of this dictation were generated by voice recognition software and may contain typographical and/or grammatical inaccuracies. Differential Diagnosis Differential diagnosis: Likely urticaria, insect bites and contact dermatitis Medical Records Attestation: I reviewed the patient's medical records. Discharge Plan Discharge Clinical Impression: Dermatitis Patient Disposition: Home, Self-Care Condition: Stable Instructions: Antibiotic Form, Dermatitis (ED) Additional Instructions: Take medication as prescribed, follow with primary care provider. Emergency department for new or worse symptoms Patient Language: Slovenian Prescriptions: New prednisone 50 mg tablet 50 mg PO DAILY Qty: 5 0RF mometasone 0.1 % ointment 1 applic topical DAILY PRN (Reason: itching) Qty: 45 0RF No Action cholecalciferol (vitamin D3) 50 mcg (2,000 unit) capsule 50 mcg PO DAILY donepezil 10 mg tablet 10 mg PO QHS levothyroxine 150 mcg capsule 150 mcg PO DAILY albuterol sulfate 90 mcg/actuation HFA aerosol inhaler 1 puff INHALATION BID fluticasone propion-salmeterol [Advair HFA] 230-21 mcg/actuation HFA aerosol inhaler 2 puff INHALATION DAILY cetirizine 10 mg tablet 10 mg PO DAILY clobetasol 0.05 % ointment 1 applic TOPICAL BID spironolactone 25 mg tablet 25 mg PO DAILY fluticasone propionate [Flovent HFA] 44 mcg/actuation HFA aerosol inhaler 2 puff INHALATION BID aspirin 81 mg Tablet,Chewable 81 mg PO DAILY rosuvastatin 40 mg Tablet 40 mg PO DAILY furosemide [Lasix] 20 mg Tablet 20 mg PO DAILY gabapentin 100 mg capsule 600 mg PO TID tizanidine 2 mg Tablet 2 mg PO Q8H PRN (Reason: Muscle Pain) oxybutynin chloride 15 mg tablet extended release 24hr 15 mg PO HS melatonin 10 mg Tablet 10 mg PO HS PRN (Reason: Sleep) pravastatin 10 mg tablet 10 mg PO DAILY Qty: 90 2RF pantoprazole 40 mg tablet,delayed release (DR/EC) 40 mg PO BID Qty: 60 5RF Follow-up/Referrals: Wolfgang Serrano MD [Primary Care Provider] - 1 Week Time of Disposition: 09:21
== END 2024-08-26 09:31 | disposition home or self-care (01) ==
PROVIDERS: Emergency Provider Nurse Practitioner Family; PCP Family Medicine
DX: L30.9 Dermatitis, unspecified (principal); Z87.891 Personal history of nicotine dependence; N40.0 Benign prostatic hyperplasia without lower urinary tract symptoms; I48.20 Chronic atrial fibrillation, unspecified; K21.9 Gastro-esophageal reflux disease without esophagitis; G70.00 Myasthenia gravis without (acute) exacerbation; M19.90 Unspecified osteoarthritis, unspecified site; E89.0 Postprocedural hypothyroidism
CPT/HCPCS: 99213; G0463

== ENCOUNTER 2024-09-05 10:16 | Emergency (ER) | payer MEDICARE, SELFPAY ==
--- NOTE | ~2024-09-05 | CT_ITS ---
CT brain wo con Ordering provider: Sulema Rand APRN History: 79 years Male with . altered mental status . Comparison: None. Technique: CT of the head without contrast. Radiation reduction technique utilized.The dose-length pr oduct was 605.33 mGy-cm. FINDINGS: BRAIN PARENCHYMA AND CSF SPACES: Mild leukoaraiosis and diffuse cortical atrophy. Mild atheromatous d isease. Old lacunar infarct in the right basal ganglia. Small old lacunar infarct in the left basal g anglia. No midline shift, mass effect or hemorrhage. The brain parenchyma and CSF spaces are otherwi se normal. VISUALIZED PARANASAL SINUSES: Bilateral ethmoid sinus disease. MASTOIDS: Well aerated. BONES: The bones appear intact. SOFT TISSUES: Visualized nasopharynx is normal. Superficial soft tissues are normal. IMPRESSION: No acute intracranial findings. Reviewed, dictated and finalized at location A. [facility]
[2024-09-05 10:18] VITALS: BP 125/89; PULSE 85; RESP 16; TEMP 36.4; O2SAT 100
--- NOTE | 2024-09-05 12:16 | ECG_ITS ---
Test Date: 2024-09-05 12:57:24 Measurements Intervals Lillian Rate: 88 P: 37 IA: 169 QRS: -16 QRSD: 85 T: 65 QT: 364 QTc: 441 Interpretive Statements SINUS RHYTHM WITH FREQUENT VENTRICULAR PREMATURE COMPLEXES MINIMAL Q WAVES- HIGH LATERAL LEADS NONSPECIFIC T-WAVE ABNORMALITY- ANT/HIGH LAT LEADS BASELINE ARTIFACT- I, II, AVR, AVL, V1-V2 ABNORMAL ECG No previous ECG available for comparison Electronically Signed On 09-05-2024 13:02:34 [employer] by Finn Caban D.O.
--- NOTE | 2024-09-05 12:17 | ED.GENADULT ---
HPI - General Adult General Chief complaint: Unspecified <Sulema Rand APRN - Last Filed: 09/05/24 12:20> Stated complaint: I think I had a stroke again <Sulema Rand APRN - Last Filed: 09/05/24 12:20> Time Seen by Provider: 09/05/24 12:10 <Sulema Rand APRN - Last Filed: 09/05/24 12:20> Focused HPI: Patient is an 79-year-old male who presents to the ER with concerns of having another stroke. He reports his last stroke was on December 09, 2023. At the time of his last stroke he lost strength in his left arm, left leg and has a left facial droop. He denies being on any blood thinners but takes an aspirin daily. His reports he has been sleeping a lot lately. Today he has had incontinence approximately 9 times since 9:00 a.m. this morning. Patient denies any symptoms associated with saddle anesthesia. He denies any headache, neck pain, new onset weakness/tingling/numbness. Patient denies any recent fevers. GENERAL: Well-appearing, well-nourished, and in no acute distress. HEAD: Normocephalic, atraumatic. CHEST: Clear to auscultation. ?No respiratory distress. HEART: Regular rate and rhythm.? NEURO: ?Alert and oriented x3. Neurological signs baseline for pt, no new acute findings. Patient screened in triage and initial orders placed.? ?Additional care and disposition to be based upon?diagnostic testing and treatment. <Sulema Rand APRN - Last Filed: 09/05/24 12:20> Focused HPI: Patient is an 79-year-old male who presents to the ER with concerns of having another stroke. He reports his last stroke was on December 09, 2023. At the time of his last stroke he lost strength in his left arm, left leg and has a left facial droop. He denies being on any blood thinners but takes an aspirin daily. His reports he has been sleeping a lot lately. Today he has had urinary frequency approximately 9 times since 9:00 a.m. this morning. Patient denies any symptoms associated with saddle anesthesia. He denies any headache, neck pain, new onset weakness/tingling/numbness. Patient denies any recent fevers. Patient states he has been dealing with urinary she has for the last year and follows with urologist outpatient. No reported diagnosis and denies any history of prostate issues or prostate cancer. GENERAL: Well-appearing, well-nourished, and in no acute distress. HEAD: Normocephalic, atraumatic. CHEST: Clear to auscultation. ?No respiratory distress. HEART: Regular rate and rhythm.? NEURO: ?Alert and oriented x3. Neurological signs baseline for pt, no new acute findings. Patient screened in triage and initial orders placed.? ?Additional care and disposition to be based upon?diagnostic testing and treatment. <George Hernández MD - Last Filed: 09/05/24 15:23> History of Present Illness HPI narrative: Agree with HPI as described above <George Hernández MD - Last Filed: 09/05/24 15:23> Related Data Home medications: Home Medications Medication Instructions Recorded Confirmed furosemide 20 mg tablet (Lasix) 20 mg PO DAILY 08/13/23 08/26/24 gabapentin 100 mg capsule 600 mg PO TID 08/13/23 08/26/24 tizanidine 2 mg tablet 2 mg PO Q8H PRN Muscle Pain 08/13/23 08/26/24 melatonin 10 mg tablet 10 mg PO HS PRN Sleep 10/10/23 08/26/24 oxybutynin chloride 15 mg 15 mg PO HS 10/10/23 08/26/24 tablet,extended release 24 hr cholecalciferol (vitamin D3) 50 50 mcg PO DAILY 11/09/23 08/26/24 mcg (2,000 unit) capsule donepezil 10 mg tablet 10 mg PO QHS 11/09/23 08/26/24 levothyroxine 150 mcg capsule 150 mcg PO DAILY 11/09/23 08/26/24 albuterol sulfate 90 mcg/actuation 1 puff inhalation BID 01/26/24 08/26/24 aerosol inhaler aspirin 81 mg chewable tablet 81 mg PO DAILY 01/26/24 08/26/24 cetirizine 10 mg tablet 10 mg PO DAILY 01/26/24 08/26/24 clobetasol 0.05 % topical ointment 1 applic topical BID 01/26/24 08/26/24 fluticasone propionate 230 2 puff inhalation DAILY 01/26/24 08/26/24 mcg-salmeterol 21 mcg/actuation HFA inhaler (Advair HFA) fluticasone propionate 44 2 puff inhalation BID 01/26/24 08/26/24 mcg/actuation HFA aerosol inhaler rosuvastatin 40 mg tablet 40 mg PO DAILY 01/26/24 08/26/24 spironolactone 25 mg tablet 25 mg PO DAILY 01/26/24 08/26/24 <Sulema Rand APRN - Last Filed: 09/05/24 12:20> Allergies/adverse reactions: Allergies Allergy/AdvReac Type Severity Reaction Status Date / Time No Known Allergies Allergy Verified 08/26/24 08:58 <Sulema Rand APRN - Last Filed: 09/05/24 12:20> Review of Systems Review of Systems: As reviewed above <George Hernández MD - Last Filed: 09/05/24 15:23> [facility] Past Medical History Medical History: Medical History Acute GI bleeding Acute lower GI bleeding Anemia Arthritis BPH (benign prostatic hyperplasia) Chronic a-fib Colon polyp Dementia Diverticulitis Diverticulosis DVT prophylaxis Dysphagia Esophageal diverticulum, acquired GERD (gastroesophageal reflux disease) Hypothyroid Myasthenia gravis <Sulema Rand APRN - Last Filed: 09/05/24 12:20> Surgical History Surgical History: Surgical History H/O arthroscopic knee surgery H/O thyroidectomy <Sulema Rand APRN - Last Filed: 09/05/24 12:20> Family History Family History: Family History Mother , age 85 Acute myocardial infarction Hypertension Heart disease Father , age 70 Acute myocardial infarction Chronic obstructive pulmonary disease History of blood clots Hypertension Heart disease Sibling Acute myocardial infarction Hypertension Heart disease Other Heart disease <Sulema Rand APRN - Last Filed: 09/05/24 12:20> Social History Social History: Social History Social History: 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, 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[employer], 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 3 children living and well Smoking packs per day: 1 Smoking cigarettes per day: 20.0 Years smoked: 4 Smoking pack-years: 4.00 Smoking status: Former smoker Alcohol intake: never Drinks per week: 2 Substance use: never Substance use type: does not use Do You Feel Safe in your Home?: Yes Lack of Transportation: No Lack of Food: Never True Current Housing: I Have Housing Concerned About Future Housing: No Difficulty Paying Gas/Electric Bills: No Difficulty Paying for Meds: No Currently Unemployed: No Education: Bachelor's Degree Difficulty w/ Childcare or Family Care: No Living arrangements: with family Gender identity (if verbalized by the patient): Male Spiritual care concerns: No <Sulema Rand, HEALTH CENTER ASSOCIATE - Last Filed: 09/05/24 12:20> Exam Narrative: GENERAL: [Well-appearing, well-nourished, and in no acute distress.] HEAD: [Normocephalic, atraumatic.] EYES: [PERRLA and EOMI.] ENT: Nares clear, no rhinorrhea or epistaxis. Mucous membranes moist. NECK: Supple. CHEST: [Clear to auscultation. No respiratory distress.] HEART: [Regular rate and rhythm]. No murmur heard. [Normal peripheral pulses.] ABDOMEN: [Soft, nondistended], [nontender], [No rigidity or guarding] EXTREMITIES: Normal range of motion. [No edema.] SKIN: Warm, dry, no rash. NEURO: No acute new focal findings. Chronic left upper extremity weakness compared to the right. 5/5 strength in the right upper extremity. Bilateral lower extremities with 5/5 strength. No facial asymmetries, awake alert oriented answers all questions appropriately. No nystagmus, and ataxia. PSYCH: [Normal mood and affect.] <George Hernández MD - Last Filed: 09/05/24 15:23> Course Vital Signs Vital signs: Vital Signs Temperature 36.4 C 09/05/24 10:18 Pulse Rate 85 09/05/24 10:18 Respiratory Rate 16 09/05/24 10:18 Blood Pressure 125/89 09/05/24 10:18 Pulse Oximetry 100 09/05/24 10:18 Temperature 36.6 C 09/05/24 12:24 Pulse Rate 87 09/05/24 14:11 Respiratory Rate 12 09/05/24 14:11 Blood Pressure 108/51 L 09/05/24 14:11 Pulse Oximetry 100 09/05/24 14:11 Fraction of Inspired Oxygen 99 09/05/24 12:21 <Sulema Rand APRN - Last Filed: 09/05/24 12:20> Vital Signs Temperature 36.4 C 09/05/24 10:18 Pulse Rate 85 09/05/24 10:18 Respiratory Rate 16 09/05/24 10:18 Blood Pressure 125/89 09/05/24 10:18 Pulse Oximetry 100 09/05/24 10:18 Temperature 36.6 C 09/05/24 12:24 Pulse Rate 87 09/05/24 14:11 Respiratory Rate 12 09/05/24 14:11 Blood Pressure 108/51 L 09/05/24 14:11 Pulse Oximetry 100 09/05/24 14:11 Fraction of Inspired Oxygen 99 09/05/24 12:21 <George Hernández MD - Last Filed: 09/05/24 15:23> Medical Decision Making MDM Narrative Medical decision making narrative: 79-year-old male presenting to the emergency depart with a complaint of increased urination and feeling more tired lately. He states that he had a previous stroke last year which left him with left arm and left leg weakness which got better with physical therapy and now he only has left arm weakness. He states that he has been having bladder issues for over a year with increased urination and frequency. States that he went to the bathroom 9 times today with urination but states he felt each episode and the urgency associated with that. Denies any burning pain or stinging pain with urination. No foul odor or hematuria. No trauma, recent illnesses. Patient's triage she has concern was that ?I think I had a stroke again ?and he thinks this as he was more tired recently. Denies any new neurological symptoms in besides his chronic left upper extremity weakness has an unremarkable neurological examination with normal vitals and good strength and sensation throughout aside from the left arm which again is chronic. No facial asymmetries. No facial droop, no nystagmus or ataxia. He otherwise appears in his normal state of health. Laboratory studies were obtained including urinalysis, CBC, CMP and a CT of the head. Laboratory studies show a minor leukocytosis of 12.3 but no significant anemia or platelet concerns. Normal coagulation studies. Electrolytes all within normal limits, normal renal function panel. Normal glucose 127. Normal hepatic function panel. Negative troponin. Urinalysis without any active signs of infection or dehydration. Head CT shows no acute intracranial findings. Given patient's unremarkable workup here and lack of active infection or any other concerns on his labs or imaging studies or his exam I believe he can be safely followed up with outpatient and he was agreeable to this plan of care. Urine he has a urologist that he sees for his overactive bladder and urological issues. No new medications need to be started at this time. <George Hernández MD - Last Filed: 09/05/24 15:23> Medical Records Medical records reviewed: Yes I reviewed the external patient's medical records. <George Hernández MD - Last Filed: 09/05/24 15:23> Vital Signs Vital Signs: Vital Signs Temperature 36.4 C 09/05/24 10:18 Pulse Rate 85 09/05/24 10:18 Respiratory Rate 16 09/05/24 10:18 Blood Pressure 125/89 09/05/24 10:18 Pulse Oximetry 100 09/05/24 10:18 Temperature 36.6 C 09/05/24 12:24 Pulse Rate 87 09/05/24 14:11 Respiratory Rate 12 09/05/24 14:11 Blood Pressure 108/51 L 09/05/24 14:11 Pulse Oximetry 100 09/05/24 14:11 Fraction of Inspired Oxygen 99 09/05/24 12:21 <Sulema Rand APRN - Last Filed: 09/05/24 12:20> Vital Signs Temperature 36.4 C 09/05/24 10:18 Pulse Rate 85 09/05/24 10:18 Respiratory Rate 16 09/05/24 10:18 Blood Pressure 125/89 09/05/24 10:18 Pulse Oximetry 100 09/05/24 10:18 Temperature 36.6 C 09/05/24 12:24 Pulse Rate 87 09/05/24 14:11 Respiratory Rate 12 09/05/24 14:11 Blood Pressure 108/51 L 09/05/24 14:11 Pulse Oximetry 100 09/05/24 14:11 Fraction of Inspired Oxygen 99 09/05/24 12:21 <George Hernández MD - Last Filed: 09/05/24 15:23> Lab Data Lab results reviewed: Yes I reviewed the patient's lab results. <George Hernández MD - Last Filed: 09/05/24 15:23> Result diagrams: 09/05/24 12:33 09/05/24 12:33 <Sulema Rand APRN - Last Filed: 09/05/24 12:20> Labs: Lab Results 09/05/24 09/05/24 09/05/24 Range/Units 12:33 12:46 13:11 WBC 12.3 H (4.5-10.0) K/mm3 RBC 3.63 L (4.6-6.20) M/mm3 Hgb 11.3 L (14.0-18.0) g/dL Hct 34.7 L (42.0-52.0) % MCV 95.6 (80-100) fl MCH 31.1 (26-34) pg MCHC 32.6 (32-36) g/dl RDW 17.3 H (11.5-14.5) % Plt Count 304 (150-375) k/mm3 MPV 10.0 (7.4-10.4) fl Immature Gran % (Auto) 0.5 (0-0.5) % Neut % (Auto) 74.9 H (45.5-73.1) % Lymph % (Auto) 14.8 L (18.3-44.2) % [place] % (Auto) 5.8 (2.6-8.5) % Eos % (Auto) 3.5 (0-4.4) % Baso % (Auto) 0.5 (0.2-1.2) % Lymph # (Auto) 1.82 (0.9-3.2) K/mm3 [place] # (Auto) 0.7 H (0.1-0.6) K/mm3 Eos # (Auto) 0.4 H (0-0.3) K/mm3 Baso # (Auto) 0.1 (0.0-0.1) K/mm3 Abs Immat Gran (auto) 0.06 H (0.00-0.031) K/mm3 Absolute Neuts (auto) 9.3 H (1.3-6.7) K/mm3 Absolute Nucleated RBC 0.000 (0.0-0.012) K/mm3 Nucleated RBC % 0.0 (0.0-0.2) % PT 12.5 (11.1-14.7) Seconds INR 0.9 APTT 26.0 (22.3-36.8) Seconds Sodium 135 L (137-145) mmol/L Potassium 3.8 (3.4-5.0) mmol/L Chloride 102 (98-107) mmol/L Carbon Dioxide 28 (22-30) mmol/L Anion Gap 5 (4-12) mmol/L BUN 10 D (9-20) mg/dL Creatinine 1.10 (0.7-1.3) mg/dL Estim Creat Clear Calc Not Reportable Estimated GFR > 60 (59 - ) Glucose 127 H (65-110) mg/dL POC Capillary Glucose 146 H (65-105) mg/dl Calcium 8.8 (8.4-10.2) mg/dL Total Bilirubin 1.1 (0.2-1.3) mg/dL AST 26 (17-59) U/L ALT 15 (6-50) U/L Alkaline Phosphatase 96 (38-126) U/L Troponin I < 0.012 (0.000-0.034) ng/mL Total Protein 7.0 (6.3-8.2) g/dL Albumin 4.0 (3.5-5.1) g/dL Urine Color Yellow (Yellow) Urine Appearance Clear (Clear) Urine pH 5.0 (5.0-9.0) Ur Specific [place] 1.010 (1.001-1.035) Urine Protein Negative (Negative) mg/dL Urine Glucose (UA) Negative (Negative) mg/dL Urine Ketones Negative (Negative) mg/dL Ur Blood (Man) Negative (Negative) Urine Nitrate Negative (Negative) Urine Bilirubin Negative (Negative) Urine Urobilinogen 0.2 (<2.0) mg/dL Leukocyte Esterase Rfl Negative (Negative) DEBBIE/UL <Sulema Travis Rand, HEALTH CENTER ASSOCIATE - Last Filed: 09/05/24 12:20> Lab Results 09/05/24 09/05/24 09/05/24 Range/Units 12:33 12:46 13:11 WBC 12.3 H (4.5-10.0) K/mm3 RBC 3.63 L (4.6-6.20) M/mm3 Hgb 11.3 L (14.0-18.0) g/dL Hct 34.7 L (42.0-52.0) % MCV 95.6 (80-100) fl MCH 31.1 (26-34) pg MCHC 32.6 (32-36) g/dl RDW 17.3 H (11.5-14.5) % Plt Count 304 (150-375) k/mm3 MPV 10.0 (7.4-10.4) fl Immature Gran % (Auto) 0.5 (0-0.5) % Neut % (Auto) 74.9 H (45.5-73.1) % Lymph % (Auto) 14.8 L (18.3-44.2) % [place] % (Auto) 5.8 (2.6-8.5) % Eos % (Auto) 3.5 (0-4.4) % Baso % (Auto) 0.5 (0.2-1.2) % Lymph # (Auto) 1.82 (0.9-3.2) K/mm3 [place] # (Auto) 0.7 H (0.1-0.6) K/mm3 Eos # (Auto) 0.4 H (0-0.3) K/mm3 Baso # (Auto) 0.1 (0.0-0.1) K/mm3 Abs Immat Gran (auto) 0.06 H (0.00-0.031) K/mm3 Absolute Neuts (auto) 9.3 H (1.3-6.7) K/mm3 Absolute Nucleated RBC 0.000 (0.0-0.012) K/mm3 Nucleated RBC % 0.0 (0.0-0.2) % PT 12.5 (11.1-14.7) Seconds INR 0.9 APTT 26.0 (22.3-36.8) Seconds Sodium 135 L (137-145) mmol/L Potassium 3.8 (3.4-5.0) mmol/L Chloride 102 (98-107) mmol/L Carbon Dioxide 28 (22-30) mmol/L Anion Gap 5 (4-12) mmol/L BUN 10 D (9-20) mg/dL Creatinine 1.10 (0.7-1.3) mg/dL Estim Creat Clear Calc Not Reportable Estimated GFR > 60 (59 - ) Glucose 127 H (65-110) mg/dL POC Capillary Glucose 146 H (65-105) mg/dl Calcium 8.8 (8.4-10.2) mg/dL Total Bilirubin 1.1 (0.2-1.3) mg/dL AST 26 (17-59) U/L ALT 15 (6-50) U/L Alkaline Phosphatase 96 (38-126) U/L Troponin I < 0.012 (0.000-0.034) ng/mL Total Protein 7.0 (6.3-8.2) g/dL Albumin 4.0 (3.5-5.1) g/dL Urine Color Yellow (Yellow) Urine Appearance Clear (Clear) Urine pH 5.0 (5.0-9.0) Ur Specific [place] 1.010 (1.001-1.035) Urine Protein Negative (Negative) mg/dL Urine Glucose (UA) Negative (Negative) mg/dL Urine Ketones Negative (Negative) mg/dL Ur Blood (Man) Negative (Negative) Urine Nitrate Negative (Negative) Urine Bilirubin Negative (Negative) Urine Urobilinogen 0.2 (<2.0) mg/dL Leukocyte Esterase Rfl Negative (Negative) DEBBIE/UL <George Hernández MD - Last Filed: 09/05/24 15:23> Imaging Data Attestation: I personally reviewed and interpreted this imaging study as follows: <George Hernández MD - Last Filed: 09/05/24 15:23> My impression: Impressions Head CT 09/05/24 13:29 IMPRESSION: No acute intracranial findings. <George Hernández MD - Last Filed: 09/05/24 15:23> Discharge Plan Discharge Clinical Impression: Increased urinary frequency, History of stroke <Sulema Rand APRN - Last Filed: 09/05/24 12:20> Patient Disposition: Home, Self-Care <Sulema Rand APRN - Last Filed: 09/05/24 12:20> Condition: Stable <Sulema Rand APRN - Last Filed: 09/05/24 12:20> Instructions: Antibiotic Form, Urinary Urgency and Frequency (DC) <Sulema Rand APRN - Last Filed: 09/05/24 12:20> Additional Instructions: All your laboratory studies and imaging results are all completely normal at this time. No new stroke or any injuries. No renal problems, normal urine without any active signs of infection or dehydration. At this time there is nothing that we can explore or help with offering given the urinary frequency and you do need to see your urologist outpatient for continued evaluation and further investigations. You can always return at any time to the ER with any new or worsening concerns. <Sulema Rand APRN - Last Filed: 09/05/24 12:20> Prescriptions: No Action prednisone 50 mg tablet 50 mg PO DAILY Qty: 5 0RF mometasone 0.1 % ointment 1 applic topical DAILY PRN (Reason: itching) Qty: 45 0RF cholecalciferol (vitamin D3) 50 mcg (2,000 unit) capsule 50 mcg PO DAILY donepezil 10 mg tablet 10 mg PO QHS levothyroxine 150 mcg capsule 150 mcg PO DAILY albuterol sulfate 90 mcg/actuation HFA aerosol inhaler 1 puff INHALATION BID fluticasone propion-salmeterol [Advair HFA] 230-21 mcg/actuation HFA aerosol inhaler 2 puff INHALATION DAILY cetirizine 10 mg tablet 10 mg PO DAILY clobetasol 0.05 % ointment 1 applic TOPICAL BID spironolactone 25 mg tablet 25 mg PO DAILY fluticasone propionate [Flovent HFA] 44 mcg/actuation HFA aerosol inhaler 2 puff INHALATION BID aspirin 81 mg Tablet,Chewable 81 mg PO DAILY rosuvastatin 40 mg Tablet 40 mg PO DAILY furosemide [Lasix] 20 mg Tablet 20 mg PO DAILY gabapentin 100 mg capsule 600 mg PO TID tizanidine 2 mg Tablet 2 mg PO Q8H PRN (Reason: Muscle Pain) oxybutynin chloride 15 mg tablet extended release 24hr 15 mg PO HS melatonin 10 mg Tablet 10 mg PO HS PRN (Reason: Sleep) pravastatin 10 mg tablet 10 mg PO DAILY Qty: 90 2RF pantoprazole 40 mg tablet,delayed release (DR/EC) 40 mg PO BID Qty: 60 5RF <Sulema Rand APRN - Last Filed: 09/05/24 12:20> Follow-up/Referrals: Wolfgang Serrano MD [Primary Care Provider] - <Sulema Rand APRN - Last Filed: 09/05/24 12:20> Time of Disposition: 15:22 <Sulema Rand APRN - Last Filed: 09/05/24 12:20> 15:22 <George Hernández MD - Last Filed: 09/05/24 15:23>
[2024-09-05 12:24] VITALS: BP 117/70; PULSE 97; RESP 16; TEMP 36.6; O2SAT 100
[2024-09-05 12:37] LABS: Basophils Absolute Auto 0.1 K/mm3 (0.0-0.1); Basophils Percent Auto 0.5 % (0.2-1.2); Eosinophils Absolute Auto 0.4 K/mm3 (0-0.3); Eosinophils Percent Auto 3.5 % (0-4.4); Hematocrit 34.7 % (42.0-52.0); Hemoglobin 11.3 g/dL (14.0-18.0); Immature Granulocyte Absolute 0.06 K/mm3 (0.00-0.031); Immature Granulocyte Percent A 0.5 % (0-0.5); Lymphocytes Absolute Auto 1.82 K/mm3 (0.9-3.2); Lymphocytes Percent Auto 14.8 % (18.3-44.2); Mean Corpuscular HGB Conc 32.6 g/dl (32-36); Mean Corpuscular Hemoglobin 31.1 pg (26-34); Mean Corpuscular Volume 95.6 fl (80-100); Monocytes Absolute Auto 0.7 K/mm3 (0.1-0.6); Monocytes Percent Auto 5.8 % (2.6-8.5); Neutrophils Absolute Auto 9.3 K/mm3 (1.3-6.7); Neutrophils Percent Auto 74.9 % (45.5-73.1); Platelet Count Result 304 k/mm3 (150-375); Red Blood Count 3.63 M/mm3 (4.6-6.20); Red Cell Distribution Width 17.3 % (11.5-14.5); White Blood Count 12.3 K/mm3 (4.5-10.0)
[2024-09-05 12:48] LABS: Glucose Point of Care 146 mg/dl (65-105)
[2024-09-05 12:48] LABS: INR 0.9; Prothrombin Time 12.5 Seconds (11.1-14.7)
[2024-09-05 12:55] LABS: Alanine Aminotransferase 15 U/L (6-50); Alkaline Phosphatase 96 U/L (38-126); Anion Gap 5 mmol/L (4-12); Aspartate Amino Transferase 26 U/L (17-59); Bilirubin,Total 1.1 mg/dL (0.2-1.3); Blood Urea Nitrogen 10 mg/dL (9-20); Calcium 8.8 mg/dL (8.4-10.2); Carbon Dioxide 28 mmol/L (22-30); Chloride 102 mmol/L (98-107); Estimated Glomerular Filt Rate > 60; Glucose 127 mg/dL (65-110); Potassium 3.8 mmol/L (3.4-5.0); Sodium 135 mmol/L (137-145)
[2024-09-05 13:00] LABS: Troponin I < 0.012 ng/mL (0.000-0.034)
[2024-09-05 13:23] VITALS: BP 113/71; PULSE 85; RESP 17; O2SAT 99
--- NOTE | 2024-09-05 13:23 | PC.NURSE ---
Pt to CT scan via stretcher at this time.
[2024-09-05 13:37] LABS: Add Urine Microscopic? NO; Appearance Urine Clear (Clear); Bilirubin Urine Negative (Negative); Blood Urine Negative (Negative); Color Urine Yellow (Yellow); Glucose Urine UA Negative (Negative); Ketones Urine Negative (Negative); Leukocyte Esterase Ur Negative LEU/UL (Negative); Nitrate Urine Negative (Negative); Protein Urine Negative (Negative); Urobilinogen Urine 0.2 mg/dL (<2.0)
[2024-09-05 14:11] VITALS: BP 108/51; PULSE 87; RESP 12; O2SAT 100
[2024-09-05 15:12] VITALS: BP 110/63; PULSE 73; RESP 14; O2SAT 97
== END 2024-09-05 15:36 | disposition home or self-care (01) ==
PROVIDERS: Registered Nurse; Emergency Provider Student in an Organized Health Care Education/Training Program; PCP Family Medicine
DX: N40.1 Benign prostatic hyperplasia with lower urinary tract symptoms (principal); R35.0 Frequency of micturition; F03.90 Unspecified dementia, unspecified severity, without behavioral disturbance, psychotic disturbance, mood disturbance, and anxiety; I48.20 Chronic atrial fibrillation, unspecified; I69.954 Hemiplegia and hemiparesis following unspecified cerebrovascular disease affecting left non-dominant side; G70.00 Myasthenia gravis without (acute) exacerbation; E89.0 Postprocedural hypothyroidism; K21.9 Gastro-esophageal reflux disease without esophagitis; Z86.0100 Personal history of colon polyps, unspecified; Z87.891 Personal history of nicotine dependence; R94.31 Abnormal electrocardiogram [ECG] [EKG]; I49.3 Ventricular premature depolarization; Z79.82 Long term (current) use of aspirin; Z79.899 Other long term (current) drug therapy
CPT/HCPCS: 36415; 70450; 80053; 81003; 82948; 84484; 85025; 85610; 85730; 93005; 99284

== ENCOUNTER 2024-10-04 00:32 | Emergency (ER) | payer MEDICARE, MEDICAID, SELFPAY ==
[2024-10-04 00:33] VITALS: BP 150/100; PULSE 76; RESP 16; TEMP 36.4; O2SAT 100
--- NOTE | 2024-10-04 01:52 | ED.SKABFB ---
HPI - Skin/Abscess/Foreign Bdy General Chief complaint: Skin/Abscess/Foreign Body Stated complaint: rash , itching, sores Time Seen by Provider: 10/04/24 01:50 Source: patient Mode of arrival: ambulatory Limitations: no limitations History of Present Illness HPI narrative: Pt arrived to ER with concern for right forearm arm excoriation and itching overlying small wound that has been present for months per patient. Patient reports that his skin becomes dry so then he scratches it leading to sores and bleeding. He has seen dermatology before with negative work up and diagnosed with excoriation secondary to itching per patient. He does not use any lotions or emollients regularly. He does have prescriptions for steroid ointments. Patient reports significant excoriation to right forearm hence his reason to visit the ER this morning. He denies significant, fever, drainage, erythema or tenderness from the wound. MD complaint: rash Related Data Home Medications ?Medication ?Instructions ?Recorded ?Confirmed ?Last Taken ?Type furosemide 20 mg tablet (Lasix) 20 mg PO DAILY 08/13/23 08/26/24 02/01/24 History gabapentin 100 mg capsule 600 mg PO TID 08/13/23 08/26/24 02/01/24 History tizanidine 2 mg tablet 2 mg PO Q8H PRN Muscle Pain 08/13/23 08/26/24 02/02/24 08:00 History melatonin 10 mg tablet 10 mg PO HS PRN Sleep 10/10/23 08/26/24 02/01/24 History oxybutynin chloride 15 mg 15 mg PO HS 10/10/23 08/26/24 02/01/24 History tablet,extended release 24 hr cholecalciferol (vitamin D3) 50 50 mcg PO DAILY 11/09/23 08/26/24 02/01/24 History mcg (2,000 unit) capsule donepezil 10 mg tablet 10 mg PO QHS 11/09/23 08/26/24 02/01/24 History levothyroxine 150 mcg capsule 150 mcg PO DAILY 11/09/23 08/26/24 02/02/24 08:00 History albuterol sulfate 90 mcg/actuation 1 puff inhalation BID 01/26/24 08/26/24 02/01/24 History aerosol inhaler aspirin 81 mg chewable tablet 81 mg PO DAILY 01/26/24 08/26/2401/31/24 History cetirizine 10 mg tablet 10 mg PO DAILY 01/26/24 08/26/24 02/01/24 History clobetasol 0.05 % topical ointment 1 applic topical BID 01/26/24 08/26/24 02/01/24 History fluticasone propionate 230 2 puff inhalation DAILY 01/26/24 08/26/24 02/01/24 History mcg-salmeterol 21 mcg/actuation HFA inhaler (Advair HFA) fluticasone propionate 44 2 puff inhalation BID 01/26/24 08/26/24 02/01/24 History mcg/actuation HFA aerosol inhaler rosuvastatin 40 mg tablet 40 mg PO DAILY 01/26/24 08/26/24 02/01/24 History spironolactone 25 mg tablet 25 mg PO DAILY 01/26/24 08/26/24 02/01/24 History Allergies Allergy/AdvReac Type Severity Reaction Status Date / Time No Known Allergies Allergy Verified 08/26/24 08:58 Review of Systems Constitutional: Constitutional: Reports as per [facility] Past Medical History Medical History Esophageal diverticulum, acquired Colon polyp Dysphagia Arthritis Dementia GERD (gastroesophageal reflux disease) Chronic a-fib DVT prophylaxis Hypothyroid BPH (benign prostatic hyperplasia) Diverticulosis Acute lower GI bleeding Anemia Acute GI bleeding Diverticulitis Myasthenia gravis Surgical History Surgical History H/O thyroidectomy H/O arthroscopic knee surgery Family History Family History Mother , age 85 Acute myocardial infarction Hypertension Heart disease Father , age 70 Acute myocardial infarction Chronic obstructive pulmonary disease History of blood clots Hypertension Heart disease Sibling Acute myocardial infarction Hypertension Heart disease Other Heart disease Social History Social History Social History: 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[employer], 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[employer], 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 3 children living and well Smoking packs per day: 1 Smoking cigarettes per day: 20.0 Years smoked: 4 Smoking pack-years: 4.00 Smoking status: Former smoker Alcohol intake: never Drinks per week: 2 Substance use: never Substance use type: does not use Do You Feel Safe in your Home?: Yes Lack of Transportation: No Lack of Food: Never True Current Housing: I Have Housing Concerned About Future Housing: No Difficulty Paying Gas/Electric Bills: No Difficulty Paying for Meds: No Currently Unemployed: No Education: Bachelor's Degree Difficulty w/ Childcare or Family Care: No Living arrangements: with family Gender identity (if verbalized by the patient): Male Spiritual care concerns: No Exam Const: General: healthy appearing and no acute distress Nutritional Appearance: well nourished Orientation/consciousness: patient oriented x3 Limitations: no limitations HENMT: Head: normal to inspection Eyes: Conjunctivae: conjunctivae normal Chest: Chest palpation & inspection: normal inspection of the chest Resp: Effort & Inspection: normal respiratory effort Cardio: Rate: regular rate GI: GI Palp: Yes Soft to palpation Skin: General skin exam: normal color Other: Patient right 4 cm x 3 cm right superficial forearm excoriation without purulence, edema. Mild erythema. Patient without any vesicular lesions. Scattered lesions also to right lower calf without linear erythema or tracking. No calf erythema. No purpura or ecchymoses. 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, consisent with history Course Vital Signs Vital signs: Vital Signs Temperature 36.4 C 10/04/24 00:33 Pulse Rate 76 10/04/24 00:33 Respiratory Rate 16 10/04/24 00:33 Blood Pressure 150/100 H 10/04/24 00:33 Pulse Oximetry 100 10/04/24 00:33 Oxygen Delivery Room Air 10/04/24 00:33 Temperature 36.6 C 10/04/24 02:08 Pulse Rate 64 10/04/24 02:08 Respiratory Rate 16 10/04/24 02:08 Blood Pressure 113/82 10/04/24 02:08 Pulse Oximetry 99 10/04/24 02:08 Oxygen Delivery Room Air 10/04/24 00:33 MDM - Skin/Abscess/Foreign Bdy MDM Narrative Medical decision making narrative: Patient with acute on chronic worsening of excoriation without significant cellulitic changes at this point, but some mild erythema and abrasions. Plan for ointment and initiation of antibiotic. Patient counseled on importance of keeping area clean and dry with use of emollients for moisture and to avoid scratching. Pt with steroid ointments at home. Given return precautions and follow up with derm. Differential Diagnosis Differential diagnosis: Likely abscess of skin or subcutaneous tissue, dermatophytosis, cellulitis, impetigo and contact dermatitis Discharge Plan Discharge Clinical Impression: Excoriation of forearm, Rash and nonspecific skin eruption Patient Disposition: Home, Self-Care Condition: Stable Instructions: Antibiotic Form, Acute Rash (ED) Additional Instructions: Please take the antibiotic as prescribed and do not miss any doses. Do not scratch your wounds as this can cause infection. Please apply mupirocin ointment and vaseline liberally over the excoriated areas and cover with a bandage. 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 Thank you for allowing us to care for you. Patient Language: Senegalese Prescriptions: New cephalexin 500 mg capsule 500 mg PO Q8H 7 Days Qty: 21 0RF mupirocin 2 % ointment 1 applic topical BID 10 Days Qty: 15 0RF No Action prednisone 50 mg tablet 50 mg PO DAILY Qty: 5 0RF mometasone 0.1 % ointment 1 applic topical DAILY PRN (Reason: itching) Qty: 45 0RF cholecalciferol (vitamin D3) 50 mcg (2,000 unit) capsule 50 mcg PO DAILY donepezil 10 mg tablet 10 mg PO QHS levothyroxine 150 mcg capsule 150 mcg PO DAILY albuterol sulfate 90 mcg/actuation HFA aerosol inhaler 1 puff INHALATION BID fluticasone propion-salmeterol [Advair HFA] 230-21 mcg/actuation HFA aerosol inhaler 2 puff INHALATION DAILY cetirizine 10 mg tablet 10 mg PO DAILY clobetasol 0.05 % ointment 1 applic TOPICAL BID spironolactone 25 mg tablet 25 mg PO DAILY fluticasone propionate [Flovent HFA] 44 mcg/actuation HFA aerosol inhaler 2 puff INHALATION BID aspirin 81 mg Tablet,Chewable 81 mg PO DAILY rosuvastatin 40 mg Tablet 40 mg PO DAILY furosemide [Lasix] 20 mg Tablet 20 mg PO DAILY gabapentin 100 mg capsule 600 mg PO TID tizanidine 2 mg Tablet 2 mg PO Q8H PRN (Reason: Muscle Pain) oxybutynin chloride 15 mg tablet extended release 24hr 15 mg PO HS melatonin 10 mg Tablet 10 mg PO HS PRN (Reason: Sleep) pravastatin 10 mg tablet 10 mg PO DAILY Qty: 90 2RF pantoprazole 40 mg tablet,delayed release (DR/EC) 40 mg PO BID Qty: 60 5RF Follow-up/Referrals: Wolfgang Serrano MD [Primary Care Provider] -
[2024-10-04 02:08] VITALS: BP 113/82; PULSE 64; RESP 16; TEMP 36.6; O2SAT 99
[2024-10-04] MEDS: CEPHALEXIN 500 MG CAPSULE PO (02:50)
[2024-10-04] MEDS: MUPIROCIN 2% OINT 22 GM TUBE 1 APPLIC TOPICAL (02:51)
--- OUTSIDE RECORDS SUMMARY | 2024-10-11 01:51 | XMS_ITS | Encounter Summary ---
Author Organization [facility] Healthcare Address [address] [place] [address] Care Team Providers Care Bagging Machine Operator Name Role Phone Wolfgang Serrano MD Primary Care Provider Unknown, Notinfile Unavailable Unavailable Santino Funk MD Unavailable Chuy Enriquez MD Unavailable [phone] Luis Felipe Cedillo MD Unavailable Marlene Thornton MD Unavailable Reason for Visit * Auth/Cert (Routine) Specialty Diagnoses / Procedures Referred By Contac t Referred To Contact Diagnoses Primary osteoarthritis of left knee Primary osteoarthritis of left knee [M17.12] Procedures MA ARTHRP KNE CONDYLE&PLATU MEDIAL&LAT COMPARTMENTS ARTHROPLASTY LEFT TOTAL KNEE/180MIN Referral ID Status Reason Start Date Expiration Date Visits Re quested Visits Authorized [id number] 1 1 Encounter Details Date Type Department Care Team (Latest Contact Info) Description 07/24/2024 8:33 AM CDT - 07/24/2024 9:31 AM CDT Hospital Encounter [facility] Operating Room [address] [place] [address] [place] [address] [address] Discharge Disposition: Discharge to home or self care Social History Tobacco Use Types Packs/Day Years Used Date Smoking Tobacco: Former Cigarettes 1 1966 Passive Smoke Exposure: Never Smokeless Tobacco: Never Alcohol Use Standard Drinks/Week Comments Yes 1 (1 standard drink = 0.6 oz pur e alcohol) OASIS D0700: Social Isolation Answer Da te Recorded Frequency of experiencing loneliness or isolatio n Never 03/08/2024 OASIS A1250: Transportation Answer Date Recorded Lack of Transportation (Medical) No 03/08/2024 Lack of Transportation (Non-Medical) No 03/08/2024 Patient Unable or Declines to Respond No 03/08/2024 OASIS B1300: Health Literacy Answer Keny e Recorded Frequency of needing help to read materials from doctor or pharmacy Sometimes 03/08/2024 [facility] Utilities Answer Date Recorded In the past 12 months has th e electric, gas, oil, or water company threatened to shut off services in your home? No 12/16/2023 Social Connection and Isolat ion Panel [NHANES] Answer Date Recorded In a typical week, how many times do you talk on the phone with family, friends, or neighbors? More than three times a week 12/16/2023 How often do you get togethe r with friends or relatives? More than three times a week 12/16/2023 How often do you attend chur ch or gnosticism services? More than 4 times per year 12/16/2023 Do you belong to any clubs o r organizations such as congregation groups, unions, fraternal or athletic groups, or school groups? No 12/16/2023 How often do you attend meet ings of the clubs or organizations you belong to? Never 12/16/2023 Are you , , di vorced, , never , or living with a partner? 12/16/2023 AUDIT-C Answer Date Recorded Q1: How often do you have a drink containing alc ohol? Monthly or less 06/14/2024 Q2: How many drinks containi ng alcohol do you have on a typical day when you are drinking? 1 or 2 06/14/2024 Q3: How often do you have si x or more drinks on one occasion? Never 06/14/2024 Overall Financial Resource Strain (CARDIA) Answe r Date Recorded How hard is it for you to pa y for the very basics like food, housing, medical care, and heating? Not hard at all 12/16/2023 PHQ-2 Answer Date Recorded Patient Health Questionnaire-2 Score 0 01/06/2024 [facility] - Occupational Stress Questionnaire Answer Date Recorded Do you feel stress - tense, restless, nervous, or anxious, or unable to sleep at night because your mind is troubled all the time - these days? Not at all 12/16/2023 Hunger Vital Sign Answer Date Recorded Within the past 12 months, y ou worried that your food would run out before you got the money to buy more. Never true 12/16/19 24 Within the past 12 months, t he food you bought just didn't last and you didn't have money to get more. Never true 12/16/2023 PRAPARE - Transportation Answer Date Re corded In the past 12 months, has l ack of transportation kept you from medical appointments or from getting medications? No 12/10 In the past 12 months, has l ack of transportation kept you from meetings, work, or from getting things needed for daily living? No 01/06/2024 Housing Stability Vital Sign Answer Keny e Recorded In the last 12 months, was t here a time when you were not able to pay the mortgage or rent on time? No 12/16/2023 In the last 12 months, how many places have you lived? 1 12/16/2023 In the last 12 months, was t here a time when you did not have a steady place to sleep or slept in a group home (including now)? No 12/16/2023 Personal Safety Answer Date Recorded Have you ever been in or are you currently in a harmful physical or emotional relationship or is someone making you feel afraid or unsafe? 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 60 g 5 12/03/2022 cetirizine (ZyrTEC) 10 mg tablet Take 1 tablet (10 mg total) by mouth daily 09/03/2023 cholecalciferol (VITAMIN D-3) 2000 unit capsule Take 1 capsule (2,000 Units total) by mouth daily 30 capsule 3 12/31/2019 clobetasoL (TEMOVATE) 0.05 % ointmentIndicatio ns:Skin Inflammation Apply topically 2 (two) times a day To most severe rash/itch on your skin. Do not use on face, armpits, or groin. If your most severe rash has yellow crusts/flakes, then mix clobetasol ointment 1:1 with mupirocin ointment before applying it. For less severe rash/itch, use triamcinolone cream sent as a separate prescription. 60 g 3 11/17/2023 cyanocobalamin (Vitamin B-12) 1,000 mcg tabletIndications :Prevention of Vitamin B12 Deficiency Take 1 tablet (1,000 mcg total) by mouth daily cyclobenzaprine (FLEXERIL) 5 mg tablet Take 1 tablet (5 mg total) by mouth 3 (three) times a day as needed 02/24/2024 donepeziL (ARICEPT) 10 mg tabletIndications :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) Take 1 tablet by mouth nightly 30 tablet 06/04/2023 Flovent HFA 44 mcg/actuation inhaler 08/25/2023 furosemide (LASIX) 20 mg tablet Take 1 tablet (20 mg total) by mouth daily 04/10/2024 gabapentin (NEURONTIN) 300 mg capsule Take 2 capsules (600 mg total) by mouth 3 (three) times a day 11/16/2023 HYDROcodone-aceta minophen (NORCO) 5-325 mg per tabletIndications :Pain Take 1 tablet by mouth every 6 (six) hours as needed for pain 20 tablet 03/30/2024 levothyroxine (SYNTHROID) 150 mcg tablet Take 1 tablet (150 mcg total) by mouth daily 09/19/2021 magnesium oxide/magnesium (MAGNESIUM, OXIDE/AA CHELATE, ORAL)Indications: magnesium supplement Take 250 mg by mouth daily. Indications: magnesium supplement melatonin 10 mg tablet Take 1 tablet (10 mg total) by mouth nightly multivit-min/ferr ous fumarate (MULTI VITAMIN ORAL)Indications: multi-vitamin support Take 1 tablet by mouth daily. Indications: multi-vitamin support oxybutynin XL (DITROPAN-XL) 10 mg 24 hr tabletIndications :Urinary Urge Incontinence Take 1 tablet (10 mg total) by mouth nightly 11/07/[address] (PROTONIX) 40 mg EC tablet Take 1 tablet (40 mg total) by mouth daily pravastatin (PRAVACHOL) 10 mg tablet Take 1 tablet (10 mg total) by mouth daily rosuvastatin (CRESTOR) 40 mg tablet Take 1 tablet (40 mg total) by mouth daily scopolamine 1 mg over 3 days patch 3 day APPLY WITH DISC BEHIND EAR REPLACE EVERY 3 DAYS 06/02/2024 senna-docusate (PERICOLACE) 8.6-50 mgIndications:con stipation Take 2 tablets by mouth daily as needed for constipation spironolactone (ALDACTONE) 25 mg tablet Take 1 tablet (25 mg total) by mouth daily tamsulosin (FLOMAX) 0.4 mg extended release capsule Take 1 capsule (0.4 mg total) by mouth nightly 01/29/2020 tiZANidine (ZANAFLEX) 2 mg tabletIndications :Muscle cramps TAKE 1 TABLET BY MOUTH EVERY 8 HOURS NEEDED FOR MUSCLE SPASM 60 tablet 09/08/2023 triamcinolone (KENALOG) 0.1 % ointment Apply topically 2 (two) times a day as needed (Rash) 60 g 2 02/15/2024 turmeric root extract 500 mg capsule Take 1,000 mg by mouth nightly vibegron (Gemtesa) 75 mg tablet Take 75 mg by mouth sulfamethoxazole- trimethoprim (BACTRIM DS) 800-160 mg per tablet Take 1 tablet by mouth 2 (two) times a day for 7 days 14 tablet 07/17/2024 07/24/20 24 documented as of this encounter Discharge Disposition Disposition Code Departure Means Destination Comment s Discharge to home or self care documented in this encounter H&P Notes * Grey Dykes MD - 07/24/2024 9:31 AM CDT Orthopedic Daily Progress Subjective: Knee pain Chief complaint of knee pain. Interval History: Patient's preop labs to determine the he likely had a urinary tract infection. Unfortunately he did not leaf size picker his message to treat this with the prescribing antibiotics and had and untreated bladder infection Objective Vitals: 24hr Min/Max: No data recorded Most recent: There were no vitals filed for this visit. No intake or output data in the 24 hours ending 07/24/24 1401 Physical Exam: Unchanged Lab/Radiology/Diagnostic Review: Reviewed. No results found for this or any previous visit (from the past 24 hour(s)). Assessment: UTI Knee arthritis Plan: Patient's surgery was canceled so his urinary tract infection could be adequately treated. He was not admitted to the hospital. He is to take the prescribed antibiotics that were sent and last week to his pharmacy His surgery will be rescheduled Grey Dykes MD [facility] [phone] 07/24/2024 2:01 PM documented in this encounter Miscellaneous Notes * Perioperative Nursing Note - Sowmya Borja, RN - 07/24/2024 9:10 AM CDT Patient was cancelled related to not picking up antibiotics and starting them prior to procedure. Patient did not have IV started and never left pre-op area, no medication given. documented in this encounter Plan of Treatment Upcoming Encounters Date Type Department Care Team (Latest Contact Info) Description 10/23/2024 10:00 AM SAILBOAT CAPTAIN Hospital Encounter [facility] Operating Room [address] [place] [address] [place] [address] [address] 10/23/2024 10:00 AM SAILBOAT CAPTAIN - 10/23/2024 1:00 PM [facility] Surgery [facility] Operating Room [address] [place] [address] [place] [address] [facility] [address] [place] [address] ARTHROPLASTY TOTAL KNEE LEFT Scheduled Procedures Name Priority Associated Diagnoses Date/Ti me ARTHROPLASTY TOTAL KNEE left knee osteoarthritis 10/23/2024 10:00 AM SAILBOAT CAPTAIN ESOPHAGOGASTRODUODENOSCOPY Dysphagia, unspecified type documented as of this encounter Visit Diagnoses Diagnosis Primary osteoarthritis of left knee- Primary documented in this encounter Admitting Diagnoses Diagnosis Primary osteoarthritis of left knee documented in this encounter Administered Medications documented in this encounter Active and Recently Administered Medications Times are shown in CDT. Scheduled Medication Order 07/22/2024 07/23/2024 07/24/2024 acetaminophen (TYLENOL) tablet 500 mg 500 mg, oral, Once, On Wed07/24/24 at 0930, For 1 dose, Pre-Op, Indications: Pre-Emptive Analgesia 0930 (Due) Continuous Medication Order 07/22/2024 07/23/2024 07/24/2024 Lactated Ringer's (LR) infusion 30 mL/hr, intravenous, Continuous, Starting on Wed07/24/24 at 0930, Pre-Op 0930 (Due) PRN Medication Order 07/22/2024 07/23/2024 07/24/2024 Carrier Fluids for Secondary Infusion - 0.9% Sodium Chloride 30 mL, intravenous, As needed, For priming tubing and/or flushing, Starting on Wed07/24/24 at 0846, Pre-Op, 0-250 ml/hr to flush line after IV infusions when no maintenance IV ordered. Infuse 30mL at the same rate as the secondary infusion. Run as primary IV, not intended for KVO. sodium chloride 0.9% flush 0.5-20 mL 0.5-20 mL, intra-catheter, As needed, line care, Starting on Wed07/24/24 at 0846, Pre-Op, Flush volume based on line type and size. Flush before and after each use. documented in this encounter Orders Medications Ordered That Te ht Not Have Been Administered Count Last Ordered Date First Ordered Date acetaminophen (TYLENOL) tablet 500 mg 1 Carrier Fluids for Secondary Infusion - 0.9% Sodium Chloride 1 07/24/2024 Lactated Ringer's (LR) infusion 1 sodium chloride 0.9% flush 0.5-20 mL 1 07/11 documented in this encounter Care Teams Bagging Machine Operator Relationship Specialty Start Date End Date Wolfgang Serrano MD PCP - General Family Medicine 05/05/23 08/02/24 Unknown, Notinfile 03/12/22 [place] [address] [facility] [address] [place] [address] 03/12/22 Chuy Enriquez MD [address] [facility] [address] [place] [address] Consulting Physician Pulmonary Disease 10/13/23 Luis Felipe Cedillo MD [address] [facility] [address], [place] [id number] Consulting Physician Gastroenterology 10/13/23 Marlene Thornton MD [address] [facility] [address], [place] [address] Surgeon Vascular Surgery 11/10/23 documented as of this encounter
--- OUTSIDE RECORDS SUMMARY | 2024-10-11 01:51 | XMS_ITS | Encounter Summary ---
Author Organization [facility] Healthcare Address [address] [place] [address] Care Team Providers Care E Learning Designer Name Role Phone Wolfgang Serrano MD Primary Care Provider [phone] Wolfgang Serrano MD Unavailable [phone] Unknown, Notinfile Unavailable Unavailable Santino Funk MD Unavailable Chuy Enriquez MD Unavailable Luis Felipe Cedillo MD Unavailable Marlene Thornton MD Unavailable [phone] Reason for Visit * Reason Onset Date Comments PMC Intake Assessment 08/30/2024 Encounter Details Date Type Department Care Team (Late st Contact Info) Description 08/30/2024 Telephone [facility] [address], [address] [place] [address] Laly Shi, RN [facility] Intake Assessment Social History Tobacco Use Types Packs/Day Years Used Date Smoking Tobacco: Former Cigarettes 1966 Passive Smoke Exposure: Never Smokeless Tobacco: [...] materials from doctor or pharmacy Sometimes 03/08/2024 [facility] Utilities Answer Date Recorded In the past 12 months has e [employer], gas, oil, or water company threatened to [...] often do you attend chur ch or orthodoxy services? More than 4 times per year 12/16/2023 Do you belong to any clubs o r organizations such as latter day groups, unions, fraternal or athletic groups, or [...] Recorded Patient Health Questionnaire-2 Score 0 01/06/2024 [facility] [place] of Occupat ional Health - Occupational Stress Questionnaire Answer Date [...] place to sleep or slept in a retirement (including now)? No 12/16/2023 Personal Safety Answer Date Recorded Have you ever been in or are you currently in a harmful physical or emotional relationship or is someone making you feel afraid or unsafe? Denies 12/15/2023 Sex and Gender Information Value Date Recorded Sex Assigned at Not on file Legal Sex Male 3:25 PM ALARM SERVICE TECHNICIAN Gender Identity Not on file Sexual Orientation Not on file documented as of this encounter Miscellaneous Notes * Telephone Encounter - Laly Shi RN - 08/30/2024 11:41 AM ALARM SERVICE TECHNICIAN lvm M SERVICE TECHNICIAN documented in this encounter Plan of Treatment Upcoming Encounters Date Type Department Care Team (Latest Contact Info) Description 10/23/2024 10:00 AM ALARM SERVICE TECHNICIAN Hospital Encounter [facility] Operating Room [address] [place] [address] [place] [address] [address] 10/23/2024 10:00 AM ALARM SERVICE TECHNICIAN - 10/23/2024 1:00 PM ALARM SERVICE TECHNICIAN Surgery [facility] Operating Room [address] [place] [address] [place] [address] [facility] [address] [place] [address] ARTHROPLASTY TOTAL KNEE LEFT Scheduled Procedures Name Priority Associated Diagnoses Date/Ti me ARTHROPLASTY TOTAL KNEE left knee osteoarthritis 10/23/2024 10:00 AM ALARM SERVICE TECHNICIAN ESOPHAGOGASTRODUODENOSCOPY Dysphagia, unspecified type documented as of this encounter Visit Diagnoses Not on filedocumented in this encounter Care Teams E Learning Designer Relationship Specialty Start Date End Date Wolfgang Serrano MD [address] [place] [address] PCP - General Family Medicine 08/03/24 Wolfgang Serrano MD [address] [place] [address] Family Medicine 08/03/24 Unknown, Notinfile 03/12/22 [place] [address] [facility] [address] [place] [address] 03/12/22 Chuy Enriquez MD [address] [place] [address] Consulting Physician Pulmonary Disease 10/13/23 Luis Felipe Cedillo MD [address] [place] [address] Consulting Physician Gastroenterology 10/13/23 Marlene Thornton MD [address] [facility] [address] [place] [address] Surgeon Vascular Surgery 11/10/23 documented as of this encounter
--- OUTSIDE RECORDS SUMMARY | 2024-10-11 01:51 | XMS_ITS | Encounter Summary ---
Author Organization [facility] Healthcare Address [address] [place] [address] Care Team Providers Care Pizza Delivery Driver Name Role Phone Wolfgang Serrano MD Primary Care Provider Unknown, Notinfile Unavailable Unavailable Santino Funk MD Unavailable Chuy Enriquez MD Unavailable Luis Felipe Cedillo MD Unavailable [phone] Marlene Thornton MD Unavailable Encounter Details Date Type Department Care Team (Late st Contact Info) Description 07/17/2024 Orders Only [facility] Medical Group Orthopedics and Sports Medicine at [facility] [address] [facility] [address] [place] [phone] Carol Aceves PA [address] [place] [id number] Social History Tobacco Use Types Packs/Day Years Used Date Smoking Tobacco: Former Cigarettes [id number] Passive Smoke Exposure: Never Smokeless Tobacco: Never [...] materials from doctor or pharmacy Sometimes 03/08/2024 [facility] Utilities Answer Date Recorded In the [...] often do you attend chur ch or uatsdin services? More than 4 times per year 12/16/2023 Do you belong to any clubs o r organizations such as faith groups, unions, fraternal or athletic groups, or [...] Recorded Patient Health Questionnaire-2 Score 0 01/06/2024 [facility] [place] of Occupat ional Health - Occupational Stress [...] place to sleep or slept in a long-term (including now)? No 12/16/2023 Personal Safety Answer Date Recorded Have you ever been in or are you currently in a harmful physical or emotional relationship or is someone making you feel afraid or unsafe? Denies 12/15/2023 Sex and Gender Information Value Date Recorded Sex Assigned at Not on file Legal Sex Male 3:25 PM ENERGY ECONOMIST Gender Identity Not on file Sexual Orientation Not on file documented as of this encounter Ordered Prescriptions Prescription Sig Dispense Quantity Refills Last Filled Start Date End Date sulfamethoxazole-t rimethoprim (BACTRIM DS) 800-160 mg per tablet Take 1 tablet by mouth 2 (two) times a day for 7 days 14 tablet 07/17/2024 07/24/2024 documented in this encounter Progress Notes * Carol Aceves PA - 07/17/2024 9:58 AM CDT Attempted to call patient. His voicemail is full. I sent a message through his [employer] regarding his antibiotics but I have called into his pharmacy. Hopefully, he will get this started today. documented in this encounter Plan of Treatment Upcoming Encounters Date Type Department Care Team (Latest Contact Info) Description 10/23/2024 10:00 AM ENERGY ECONOMIST Hospital Encounter [facility] Operating Room [address] [place] [address] [place] [address] [facility] [address] [place], [place] [id number] 10/23/2024 10:00 AM ENERGY ECONOMIST - 10/23/2024 1:00 PM ENERGY ECONOMIST Surgery [facility] Operating Room [id number] [place] [address] [place] [address] [id number] ARTHROPLASTY TOTAL KNEE LEFT Scheduled Procedures Name Priority Associated Diagnoses Date/Ti me ARTHROPLASTY TOTAL KNEE left knee osteoarthritis 10/23/2024 10:00 AM ENERGY ECONOMIST ESOPHAGOGASTRODUODENOSCOPY Dysphagia, unspecified type documented as of this encounter Visit Diagnoses Not on filedocumented in this encounter Care Teams Pizza Delivery Driver Relationship Specialty Start Date End Date Wolfgang Serrano MD PCP - General Family Medicine 05/05/23 08/02/24 Unknown, Notinfile 03/12/22 [place] [address] [facility] [address] [place] [address] 03/12/22 Chuy Enriquez MD [address] [facility] [address] [place] [address] Consulting Physician Pulmonary Disease 10/13/23 Luis Felipe Cedillo MD [address] [facility] [address] [place] [address] Consulting Physician Gastroenterology 10/13/23 Marlene Thornton MD [address] [place] [address] Surgeon Vascular Surgery 11/10/23 documented as of this encounter
--- OUTSIDE RECORDS SUMMARY | 2024-10-11 01:51 | XMS_ITS | Encounter Summary ---
Author Organization [facility] Healthcare Address [address] [place] [address] Care Team Providers Care Mat Machine Operator Name Role Phone Wolfgang Serrano MD Primary Care Provider Unknown, Notinfile Unavailable Unavailable Santino Funk MD Unavailable [phone] Chuy Enriquez MD Unavailable [phone] Luis Felipe Cedillo MD Unavailable Marlene Thornton MD Unavailable Encounter Details Date Type Department Care Team (Late st Contact Info) Description 07/14/2024 Documentation [facility] Pre Anesthesia Testing [address] [place] [address] Madie Trujillo RN Social History Tobacco Use Types Packs/Day Years Used Date Smoking Tobacco: Former Cigarettes 1 966 - 1966 Passive Smoke Exposure: Never Smokeless Tobacco: [...] materials from doctor or pharmacy Sometimes 03/08/2024 [facility] Utilities Answer Date Recorded In the past [...] often do you attend chur ch or holiness services? More than 4 times per year 12/16/2023 Do you belong to any clubs o r organizations such as mormonism groups, unions, fraternal or athletic groups, or [...] Recorded Patient Health Questionnaire-2 Score 0 01/06/2024 [facility] [place] of Occupat ional Health - Occupational Stress [...] place to sleep or slept in a care home (including now)? No 12/16/2023 Personal Safety Answer Date Recorded Have you ever been in or are you currently in a harmful physical or emotional relationship or is someone making you feel afraid or unsafe? Denies 12/15/2023 Sex and Gender Information Value Date Recorded Sex Assigned at Not on file Legal Sex Male 3:25 PM SPLITTING MACHINE FEEDER Gender Identity Not on file Sexual Orientation Not on file documented as of this encounter Miscellaneous Notes * Perioperative Nursing Note - Madie Trujillo, MARAH - 07/14/2024 10:40 AM CDT Final urine culture report routed to PH[facility]IP Layton and Dawn. Epic message sent. Less than 100,000 colonies/mL (clinically insignificant growth based on current clinical standards) documented in this encounter Plan of Treatment Upcoming Encounters Date Type Department Care Team (Latest Contact Info) Description 10/23/2024 10:00 AM SPLITTING MACHINE FEEDER Hospital Encounter [facility] Operating Room [address] [place] [address] [place] [address] [address] 10/23/2024 10:00 AM SPLITTING MACHINE FEEDER - 10/23/2024 1:00 PM SPLITTING MACHINE FEEDER Surgery [facility] Operating Room [address] [place] [address] [place] [address] [facility] [address] [place] [address] ARTHROPLASTY TOTAL KNEE LEFT Scheduled Procedures Name Priority Associated Diagnoses Date/Ti me ARTHROPLASTY TOTAL KNEE left knee osteoarthritis 10/23/2024 10:00 AM SPLITTING MACHINE FEEDER ESOPHAGOGASTRODUODENOSCOPY Dysphagia, unspecified type documented as of this encounter Visit Diagnoses Not on filedocumented in this encounter Care Teams Mat Machine Operator Relationship Specialty Start Date End Date Wolfgang Serrano MD PCP - General Family Medicine 05/05/23 08/02/24 Unknown, Notinfile 03/12/22 [place] [address] [facility] [address] [place] [address] 03/12/22 Chuy Enriquez MD [address] [facility] [address] [place] [address] Consulting Physician Pulmonary Disease 10/13/23 Luis Felipe Cedillo MD [address] [facility] [address] [place] [address] Consulting Physician Gastroenterology 10/13/23 Marlene Thornton MD [address] [facility] [address] [place] [address] Surgeon Vascular Surgery 11/10/23 documented as of this encounter
--- OUTSIDE RECORDS SUMMARY | 2024-10-11 01:51 | XMS_ITS | Encounter Summary ---
Author Organization [facility] Healthcare Address [address] [place] [address] Care Team Providers Care Apparatus Operator Name Role Phone Wolfgang Serrano MD Primary Care Provider [phone] Unknown, Notinfile Unavailable Unavailable Santino Funk MD Unavailable [phone] Chuy Enriquez MD Unavailable [phone] Luis Felipe Cedillo MD Unavailable [phone] Marlene Thornton MD Unavailable Encounter Details Date Type Department Care Team (Late st Contact Info) Description 07/17/2024 Documentation [facility] Pre Anesthesia Testing [address] [place] [address] Madie Trujillo RN Social History [...] materials from doctor or pharmacy Sometimes 03/08/2024 [facility] Utilities Answer Date Recorded In [...] often do you attend chur ch or pentecostal services? More than 4 times per year 12/16/2023 Do you belong to any clubs o r organizations such as anabaptist groups, unions, fraternal or athletic groups, or [...] Recorded Patient Health Questionnaire-2 Score 0 01/06/2024 [facility] [place] of Occupat ional Health - Occupational Stress [...] place to sleep or slept in a skilled nursing (including now)? No 12/16/2023 Personal Safety Answer Date Recorded Have you ever been in or are you currently in a harmful physical or emotional relationship or is someone making you feel afraid or unsafe? Denies 12/15/2023 Sex and Gender Information Value Date Recorded Sex Assigned at Not on file Legal Sex Male 3:25 PM SOFTWARE DEVELOPMENT MANAGER Gender Identity Not on file Sexual Orientation Not on file documented as of this encounter Miscellaneous Notes * Perioperative Nursing Note - Madie Trujillo RN - 07/17/2024 2:20 PM CDT Images from the original note were not included. Epic message received today: Carol Aceves PA [place]ru[place], Jennifer Marie, MARAH Attempted to call patient. His voicemail is full. I sent a message through his [employer] regarding his antibiotics but I have called into his pharmacy. Hopefully, he will get this started today. Thanks documented in this encounter Plan of Treatment Upcoming Encounters Date Type Department Care Team (Latest Contact Info) Description 10/23/2024 10:00 AM SOFTWARE DEVELOPMENT MANAGER Hospital Encounter [facility] Operating Room [address] [place] [address] [place] [address] [facility] [address] [place] [address] 10/23/2024 10:00 AM SOFTWARE DEVELOPMENT MANAGER - 10/23/2024 1:00 PM SOFTWARE DEVELOPMENT MANAGER Surgery [facility] Operating Room [address] [place] [address] [place] [address] [facility] [address] [place] [address] ARTHROPLASTY TOTAL KNEE LEFT Scheduled Procedures Name Priority Associated Diagnoses Date/Ti me ARTHROPLASTY TOTAL KNEE left knee osteoarthritis 10/23/2024 10:00 AM SOFTWARE DEVELOPMENT MANAGER ESOPHAGOGASTRODUODENOSCOPY Dysphagia, unspecified type documented as of this encounter Visit Diagnoses Not on filedocumented in this encounter Care Teams Apparatus Operator Relationship Specialty Start Date End Date Wolfgang Serrano MD PCP - General Family Medicine 05/05/23 08/02/24 Unknown, Notinfile 03/12/22 [place] [address] [facility] [address] [place] [address] 03/12/22 Chuy Enriquez MD [address] [facility] [address] [place] [address] Consulting Physician Pulmonary Disease 10/13/23 Luis Felipe Cedillo MD [address] [facility] [address] [place] [address] Consulting Physician Gastroenterology 10/13/23 Marlene Thornton MD [address] [facility] [address] [place] [address] Surgeon Vascular Surgery 11/10/23 documented as of this encounter
--- OUTSIDE RECORDS SUMMARY | 2024-10-11 01:51 | XMS_ITS | Encounter Summary ---
Author Organization [facility] Address [address] [place] [address] Phone Care Team Providers Care Risk Manager Name Role Phone Wolfgang Serrano MD Primary Care Provider Wolfgang Serrano MD Unavailable Unknown, Notinfile Unavailable Unavailable Santino Funk MD Unavailable Chuy Enriquez MD Unavailable Luis Felipe Cedillo MD Unavailable Marlene Thornton MD Unavailable Reason for Referral * Consultation (Routine) - Pending Review Specialty Diagnoses / Procedures Referred By Dillan t Referred To Contact Pain Management Diagnoses Acute knee pain, unspecified laterality Left knee pain, unspecified chronicity Judah Celaya MD [address] [facility] [place] [address] Phone: tel: fax: [facility] [address] [place] [phone] Referral ID Status Reason Start Date Expiration Date Visits Requested Visits Authorized [id number] Pending Review Specialty Services Required 11/1909/28/2025 1 1 Question Answer Please select the performing region: [facility] [[id number]] # of visits: 1 Comments Eval for consideration for left knee RFA STOCK FARMER * Diagnostic Imaging (Routine) - Closed Specialty Diagnoses / Procedures Referred By Contac t Referred To Contact Diagnoses Left knee pain, unspecified chronicity Procedures XR Knee Left 4 or More Views Judah Celaya MD [address] [facility] [address] [place] [address] Phone: tel: fax: [facility] [address] [place] [phone] Phone: tel: Referral ID Status Reason Start Date Expiration Date Visits Re quested Visits Authorized [id number] Closed 08/15/2024 09/14/2025 1 1 STOCK FARMER * Diagnostic Imaging (Routine) - Closed Specialty Diagnoses / Procedures Referred By Contac t Referred To Contact Diagnoses Acute knee pain, unspecified laterality Procedures XR Pelvis 1 or 2 Views Judah Celaya MD [address] [facility] [address] [place] [address] Phone: tel: fax: [facility] [address] [place] [phone] Phone: tel: Referral ID Status Reason Start Date Expiration Date Visits Re quested Visits Authorized [id number] Closed 08/15/2024 09/14/2025 1 1 STOCK FARMER Reason for Visit * Reason Comments Pain * Consultation (Routine) - Closed Specialty Diagnoses / Procedures Referred By Contac t Referred To Contact Orthopedic Surgery Diagnoses Right knee pain, unspecified chronicity Jevon Barrera, [employer] [address] [place] [address] Phone: tel: fax: [facility] (All Locations) Referral ID Status Reason Start Date Expiration Date V isits Requested Visits Authorized [id number] Closed Specialty Services Required 08/03/2024 09/02/2025 1 1 Encounter Details Date Type Department Care Team (Late st Contact Info) Description 08/29/2024 9:00 AM LIVESTOCK FARMER Office Visit [facility] Orthopaedic Surgery [address] [facility] [address] [place] [id number] Judah Celaya MD [address] [facility] [address] [place] [address] Primary osteoarthritis of left knee (Primary Dx); Acute knee pain, unspecified laterality; Left knee pain, unspecified chronicity Social History Tobacco Use Types Packs/Day Years [...] materials from doctor or pharmacy Sometimes 03/08/2024 [facility] Utilities Answer Date Recorded In the past 12 months has [employer], [employer], oil, or water [employer] threatened to shut off services in your [...] 12/16/2023 How often do you attend chur or orthodoxy services? More than 4 times per year 12/16/2023 Do you belong to any clubs o r organizations such as roman catholic groups, unions, fraternal or athletic groups, or [...] Recorded Patient Health Questionnaire-2 Score 0 01/06/2024 [facility] - Occupational Stress [...] place to sleep or slept in a longterm (including now)? No 12/16/2023 Personal Safety Answer Date Recorded Have you ever been in or are you currently in a harmful physical or emotional relationship or is someone making you feel afraid or unsafe? Denies 12/15/2023 Sex and Gender Information Value Date Recorded Sex Assigned at Not on file Legal Sex Male 3:25 PM LIVESTOCK FARMER Gender Identity Not on file Sexual Orientation Not on file documented as of this encounter Last Filed Vital Signs Vital Sign Reading Time Taken Comments Blood Pressure - - Pulse - - Temperature - - Respiratory Rate - - Oxygen Saturation - - Inhaled Oxygen Concentration - - Weight 85.3 kg (188 lb) 08/29/2024 10:05 AM LIVESTOCK FARMER Height 179.1 cm (5' 10.5 ) 08/29/2024 10:05 AM C Body Mass Index 26.59 08/29/2024 10:05 AM LIVESTOCK FARMER documented in this encounter Progress Notes * Judah Celaya MD - 08/29/2024 9:00 AM CST Images from the original note were not included. NEW PATIENT VISIT CHIEF COMPLAINT: left knee pain HISTORY OF PRESENT ILLNESS: Abrahan Gtz Jr. is a 79 y.o. year old male with left knee pain. The patient has had pain for several years and it is worse with weightbearing activities. The pain is at the medial aspect of the knee. He denies any groin pain, back pain, numbness, tingling, or prior surgeries of the knee. Previous treatment has included activity modification, oral pain medications (e.g. acetaminophen, non-steroidal anti-inflammatories), intra-articular corticosteroid injections, physical therapy, and home exercises program. He feels as though the pain is worsening and has started to significantly alter his quality of life. He did have a recent stroke with left sided residual deficits (LUE). He also has had L TKA scheduled 2x with other providers and both times was cancelled in preop. PAST MEDICAL HISTORY: has a past medical history of Acute gastric ulcer without hemorrhage or perforation, Alzheimer's dementia (HCC), Asthma, Back pain, Cataract, Closed fracture of left tibial plateau with delayed healing, Closed fracture of right tibial plateau with delayed healing, Closed nondisplaced osteochondral fracture of left patella with delayed healing, Closed osteochondral fracture of patella, right, withdelayed healing, subsequent encounter, Clotting disorder (CMS/HCC) ([facility]), Complex tear of medial meniscus of left knee as current injury, Complex tear of medial meniscus of right knee as current injury, Cramps of lower extremity, Diverticulitis of colon, Easy bruisability, Enlarged prostate, Fatigue, Frequent urination, Gastroesophageal reflux disease, Hyperlipidemia, Hypertension, Hypothyroidism, Incontinence of urine, Muscle weakness, Osteoarthritis, Peptic ulcer, Seizures ([facility]) (1997), SOB (shortness of breath) on exertion, Stroke ([facility]) (12/09/2023), Subchondral insufficiency fracture of co ndyle of left femur ([facility]), Vertigo, Vision changes, Visual disturbance, and . He has no past medical history of Malignant hyperthermia, Motion sickness, PONV (postoperative nausea and vomiting), or Sleep apnea. PAST SURGICAL HISTORY: has a past surgical history that includes Hernia repair (1979); Cataract extraction, bilateral (Bilateral, 2018); Thyroidectomy (12/27/2019); and Knee arthroscopy (Bilateral). MEDICATIONS: Current Outpatient Medications on File Prior to Visit Medication Sig Dispense Refill Advair HFA 230-21 mcg/actuation inhaler Inhale 2 puffs 2 (two) times a day albuterol HFA (PROVENTIL HFA,VENTOLIN HFA,PROAIR HFA) 90 mcg/actuation inhaler 2 puffs every 4 (four) hours as needed aspirin 81 mg enteric coated tablet Take 1 tablet (81 mg total) by mouth daily capsaicin 0.1 % cream Apply to your feet three to four times a day. 60 g 5 cetirizine (ZyrTEC) 10 mg tablet Take 1 tablet (10 mg total) by mouth daily cholecalciferol (VITAMIN D-3) 2000 unit capsule Take 1 capsule (2,000 Units total) by mouth daily (Patient taking differently: Take 1 capsule (2,000 Units total) by mouth nightly) 30 capsule 3 clobetasoL (TEMOVATE) 0.05 % ointment Apply topically 2 (two) times a day To most severe rash/itch on your skin. Do not use on face, armpits, or groin. If your most severe rash has yellow crusts/flakes, then mix clobetasol ointment 1:1 with mupirocin ointment before applying it. For less severe rash/itch, use triamcinolone cream sent as a separate prescription. 60 g 3 cyanocobalamin (Vitamin B-12) 1,000 mcg tablet Take 1 tablet (1,000 mcg total) by mouth daily cyclobenzaprine (FLEXERIL) 5 mg tablet Take 1 tablet (5 mg total) by mouth 3 (three) times a day asneeded donepeziL (ARICEPT) 10 mg tablet Take 1 tablet by mouth nightly 30 tablet 0 Flovent HFA 44 mcg/actuation inhaler furosemide (LASIX) 20 mg tablet Take 1 tablet (20 mg total) by mouth daily gabapentin (NEURONTIN) 300 mg capsule Take 2 capsules (600 mg total) by mouth 3 (three) times a day HYDROcodone-acetaminophen (NORCO) 5-325 mg per tablet Take 1 tablet by mouth every 6 (six) hours asneeded for pain 20 tablet 0 levothyroxine (SYNTHROID) 150 mcg tablet Take 1 tablet (150 mcg total) by mouth daily magnesium oxide/magnesium (MAGNESIUM, OXIDE/AA CHELATE, ORAL) Take 250 mg by mouth daily. Indications: magnesium supplement melatonin 10 mg tablet Take 1 tablet (10 mg total) by mouth nightly multivit-min/ferrous fumarate (MULTI VITAMIN ORAL) Take 1 tablet by mouth daily. Indications: multi-vitamin support oxybutynin XL (DITROPAN-XL) 10 mg 24 hr tablet Take 1 tablet (10 mg total) by mouth nightly pantoprazole DR (PROTONIX) 40 mg EC tablet Take 1 tablet (40 mg total) by mouth daily pravastatin (PRAVACHOL) 10 mg tablet Take 1 tablet (10 mg total) by mouth daily predniSONE (DELTASONE) 5 mg tablet Take 1 tablet (5 mg) by mouth daily rosuvastatin (CRESTOR) 40 mg tablet Take 1 tablet (40 mg total) by mouth daily scopolamine 1 mg over 3 days patch 3 day APPLY WITH DISC BEHIND EAR REPLACE EVERY 3 DAYS senna-docusate (PERICOLACE) 8.6-50 mg Take 2 tablets by mouth daily as needed for constipation spironolactone (ALDACTONE) 25 mg tablet Take 1 tablet (25 mg total) by mouth daily tamsulosin (FLOMAX) 0.4 mg extended release capsule Take 1 capsule (0.4 mg total) by mouth nightly tiZANidine (ZANAFLEX) 2 mg tablet TAKE 1 TABLET BY MOUTH EVERY 8 HOURS NEEDED FOR MUSCLE SPASM (Patient taking differently: Take 1 tablet (2 mg total) by mouth nightly) 60 tablet 0 triamcinolone (KENALOG) 0.1 % ointment Apply topically 2 (two) times a day as needed (Rash) 60 g 2 turmeric root extract 500 mg capsule Take 1,000 mg by mouth nightly vibegron (Gemtesa) 75 mg tablet Take [address] mouth [address]op[address]ole [address] (PROTONIX) 40 mg EC tablet Take 1 tablet (40 mg total) by mouth 2 (two) times a rui027 tablet 0 No current facility-administered medications on file prior to visit. ALLERGIES: No Known Allergies. SOCIAL HISTORY: Social History Tobacco Use Smoking status: Former Current packs/day: 0.00 Types: Cigarettes Start date: 1965 Quit date: 1966 Years since quittin.9 Passive exposure: Never Smokeless tobacco: Never Substance and Sexual Activity Drug use: Not Currently Types: Alcohol Sexual activity: Defer Alcohol Use: Not At Risk (06/14/2024) AUDIT-C Frequency of Alcohol Consumption: Monthly or less Average Number of Drinks: 1 or 2 Frequency of Binge Drinking: Never FAMILY HISTORY: family history includes Heart attack in his father, mother, and sister; Heart disease in an other family member; Heart failure in an other family member; Osteoarthritis in an other family member; Osteoporosis in an other family member. REVIEW OF SYSTEMS: Constitutional: Negative for chills, activity change and appetite change. HENT: Negative. Eyes: Negative. Respiratory: Negative. Cardiovascular: Negative. Gastrointestinal: Negative. Genitourinary: Negative. Musculoskeletal: per HPI Skin: Negative. Neurological: Negative. Psychiatric/Behavioral: Negative. PHYSICAL EXAM: Vitals: Height: Height: 179.1 cm (5' 10.5 ) Weight: Weight: 85.3 kg (188 lb) BMI: Body mass index is 26.59 kg/m??. General: Awake, alert, oriented to person, place, and time. Affect is normal. Hearing is normal to the spoken word. Breathing is unlabored. left Knee Patient walks with an antalgic gait. Examination of the knee demonstrates skin is intact with no prior incisions. There is a mild effusion. The patient has range of motion from 0-120 degrees. The knee is stable to anterior and posterior stress at full extension and 90 degrees of flexion. The knee is stable to varus and valgus stress at full extension, mid-flexion, and 90 degrees of flexion. The patient is not tender over the front of the knee including at Gerdy's tubercle and the pes bursa. Thepatient has medial joint line tenderness . The patient denies any pain in the groin with passive range of motion of the hip. Extremities: Vascular: The dorsalis pedis pulse is palpable bilaterally. There is good perfusion of both feet with good capillary refill. Neurologic: The distal motor and sensory exam is grossly normal without appreciable deficit bilaterally. Intact extensor hallucis longus, flexor hallucis longus, tibialis anterior, and gastrocnemius soleus complex. RADIOGRAPHS: I independently reviewed the following images . Xrays of the left knee demonstrate severe osteoarthritis with joint space narrowing, subchondral cyst formation, sclerosis and osteophyte formation. The patient has a varus deformity of the limb. IMPRESSION: 79 y.o. year old male with severe osteoarthritis of the left knee PLAN: - we disucssed surgical and non surgical options - given he is higher risk for complication with TKA, I recommend exhausting nonop - will refer for pain management for RFA ablation - fu in 4 mos to discuss effect. If no improvement will plan for TKA Judah Celaya MD/FLIP [employer] Consultant of Orthopaedic Surgery Adult Hip and Knee Reconstruction STOCK FARMER documented in this encounter Plan of Treatment Upcoming Encounters Date Type Department Care Team (Latest Contact Info) Description 10/23/2024 10:00 AM LIVESTOCK FARMER Hospital Encounter [facility] Room [address] [place] [id number] [place] [address] [address] 10/23/2024 10:00 AM LIVESTOCK FARMER - 10/23/2024 1:00 PM LIVESTOCK FARMER Surgery [facility] [address] [place] [address] [place] [address] [address] ARTHROPLASTY TOTAL KNEE LEFT Scheduled Procedures Name Priority Associated Diagnoses Date/Ti me ARTHROPLASTY TOTAL KNEE left knee osteoarthritis 10/23/2024 10:00 AM LIVESTOCK FARMER ESOPHAGOGASTRODUODENOSCOPY Dysphagia, unspecified type Scheduled Referrals Name Type Priority Associated Diagnoses Orde r Schedule Ambulatory referral to Pain Management Outpatient Referral Routine Acute knee pain, unspecified laterality Left knee pain, unspecified chronicity Expected: 09/12/2024 (Approximate), Expires: 08/29/2025 documented as of this encounter Results * XR Knee Left 4 or More Views (08/29/2024 9:28 AM LIVESTOCK FARMER) Anatomical Region Laterality Modality Lower Extremities, Knee Left Computed Radiography 08/29/2024 11:0 7 AM LIVESTOCK FARMER Impressions 08/29/2024 11:10 AM LIVESTOCK FARMER 1. 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 2. ??Mild bilateral hip osteoarthritis. Dictated by: Ap Mcgregor M.D. The radiology attending physician has personally reviewed this study, and had reviewed and/or edited this written report and agrees with it. Electronically signed by: Errol Parnell M.D. Narrative 08/29/2024 11:10 AM LIVESTOCK FARMER EXAMINATION: XR KNEE LEFT 4 OR MORE VIEWS, XR PELVIS 1 OR 2 VIEWS HISTORY: Chronic left knee pain COMPARISON: Knee radiographs 12/01/2022 and 08/22/2021 and pelvis radiograph 10/03/2022. FINDINGS: 4 radiographs of the left knee and one radiograph of the pelvis was submitted for evaluation. Left knee: Interval progression of severe medial compartment predominant osteoarthritis of the left knee. ??No acute fracture or dislocation. Small left knee effusion. ??Right knee total arthroplasty. Pelvis: Mild osteoarthritis of the bilateral hips. ??Femoral heads overlie the acetabula in expected position. ??Left inferior pelvic obliquity. Procedure Note Errol Parnell MD - 08/29/2024 EXAMINATION: XR KNEE LEFT 4 OR MORE VIEWS, XR PELVIS 1 OR 2 VIEWS HISTORY: Chronic left knee pain COMPARISON: Knee radiographs 12/01/2022 and 08/22/2021 and pelvis radiograph 10/03/2022. FINDINGS: 4 radiographs of the left knee and one radiograph of the pelvis was submitted for evaluation. Left knee: Interval progression of severe medial compartment predominant osteoarthritis of the left knee. No acute fracture or dislocation. Small left knee effusion. Right knee total arthroplasty. Pelvis: Mild osteoarthritis of the bilateral hips. Femoral heads overlie the acetabula in expected position. Left inferior pelvic obliquity. IMPRESSION: 1. Severe medial compartment predominant osteoarthritis of the left knee with a small left knee effusion. 2. Mild bilateral hip osteoarthritis. Dictated by: Ap Mcgregor M.D. The radiology attending physician has personally reviewed this study, and had reviewed and/or edited this written report and agrees with it. Electronically signed by: Errol Parnell M.D. Judah Celaya MD IMG XR PROCEDURES Final Result * XR Pelvis 1 or 2 Views (08/29/2024 9:28 AM LIVESTOCK FARMER) Anatomical Region Laterality Modality Body, Pelvis N/A Computed Radiogr aphy 08/29/2024 11:0 7 AM LIVESTOCK FARMER Impressions 08/29/2024 11:10 AM LIVESTOCK FARMER 1. 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 2. ??Mild bilateral hip osteoarthritis. Dictated by: Ap Mcgregor M.D. The radiology attending physician has personally reviewed this study, and had reviewed and/or edited this written report and agrees with it. Electronically signed by: Errol Parnell M.D. Narrative 08/29/2024 11:10 AM LIVESTOCK FARMER EXAMINATION: XR KNEE LEFT 4 OR MORE VIEWS, XR PELVIS 1 OR 2 VIEWS HISTORY: Chronic left knee pain COMPARISON: Knee radiographs 12/01/2022 and 08/22/2021 and pelvis radiograph 10/03/2022. FINDINGS: 4 radiographs of the left knee and one radiograph of the pelvis was submitted for evaluation. Left knee: Interval progression of severe medial compartment predominant osteoarthritis of the left knee. ??No acute fracture or dislocation. Small left knee effusion. ??Right knee total arthroplasty. Pelvis: Mild osteoarthritis of the bilateral hips. ??Femoral heads overlie the acetabula in expected position. ??Left inferior pelvic obliquity. Procedure Note Errol Parnell MD - 08/29/2024 EXAMINATION: XR KNEE LEFT 4 OR MORE VIEWS, XR PELVIS 1 OR 2 VIEWS HISTORY: Chronic left knee pain COMPARISON: Knee radiographs 12/01/2022 and 08/22/2021 and pelvis radiograph 10/03/2022. FINDINGS: 4 radiographs of the left knee and one radiograph of the pelvis was submitted for evaluation. Left knee: Interval progression of severe medial compartment predominant osteoarthritis of the left knee. No acute fracture or dislocation. Small left knee effusion. Right knee total arthroplasty. Pelvis: Mild osteoarthritis of the bilateral hips. Femoral heads overlie the acetabula in expected position. Left inferior pelvic obliquity. IMPRESSION: 1. Severe medial compartment predominant osteoarthritis of the left knee with a small left knee effusion. 2. Mild bilateral hip osteoarthritis. Dictated by: Ap Mcgregor M.D. The radiology attending physician has personally reviewed this study, and had reviewed and/or edited this written report and agrees with it. Electronically signed by: Errol Parnell M.D. Judah Celaya MD IMG XR PROCEDURES Final Result documented in this encounter Visit Diagnoses Diagnosis Primary osteoarthritis of left knee- Primary Acute knee pain, unspecified laterality Left knee pain, unspecified chronicity Left knee pain, unspecified chronicity Acute knee pain, unspecified laterality documented in this encounter Historical Medications * This list may reflect changes made after this encounter. predniSONE (DELTASONE) 5 mg tablet Take 1 tablet (5 mg) by mouth daily added in this encounter Care Teams Risk Manager Relationship Specialty Start Date End Date Wolfgang Serrano MD [address] [place] [address] PCP - General Family Medicine 08/03/24 Wolfgang Serrano MD [address] [place] [address] Family Medicine 08/03/24 Unknown, Notinfile 6/2/22 [place] [address] [facility] [address] [place] [address] 03/12/22 Chuy Enriquez MD [address] [facility] [address] [place] [address] Consulting Physician Pulmonary Disease 10/13/23 Luis Felipe Cedillo MD [address] [facility] [address] [place] [address] Consulting Physician Gastroenterology 10/13/23 Marlene Thornton MD [address] [facility] [address] [place] [address] Surgeon Vascular Surgery 11/10/23 documented as of this encounter
--- OUTSIDE RECORDS SUMMARY | 2024-10-11 01:51 | XMS_ITS | Encounter Summary ---
Author Organization [facility] Healthcare Address [address] [place] [address] Care Team Providers Care Wiper Blender Name Role Phone Wolfgang Serrano MD Primary Care Provider [phone] Wolfgang Serrano MD Unavailable [phone] Unknown, Notinfile Unavailable Unavailable Santino Funk MD Unavailable Chuy Enriquez MD Unavailable [phone] Luis Felipe Cedillo MD Unavailable [phone] Marlene Thornton MD Unavailable Reason for Referral * Diagnostic Imaging (Routine) - Closed Specialty Diagnoses / Procedures Referred By Contac t Referred To Contact Diagnoses Acute knee pain, unspecified laterality Procedures XR Pelvis 1 or 2 Views Judah Celaya MD [address] [facility] [place] [address] Phone: tel: fax: [facility] [address] [facility] [address] [place] [phone] Phone: tel: Referral ID Status Reason Start Date Expiration Date Visits Re quested Visits Authorized [id number] Closed 08/15/2024 09/14/2025 1 1 R BLENDER * Diagnostic Imaging (Routine) - Closed Specialty Diagnoses / Procedures Referred By Contac t Referred To Contact Diagnoses Left knee pain, unspecified chronicity Procedures XR Knee Left 4 or More Views Judah Celaya MD [address] [facility] [address] [address] Phone: tel: fax: [facility] [address] [place] [address] [address] [place] [phone] Phone: tel: Referral ID Status Reason Start Date Expiration Date Visits Re quested Visits Authorized [id number] Closed 08/15/2024 09/14/2025 1 1 R BLENDER Reason for Visit * Diagnostic Imaging (Routine) - Closed Specialty Diagnoses / Procedures Referred By Contac t Referred To Contact Diagnoses Left knee pain, unspecified chronicity Procedures XR Knee Left 4 or More Views Judah Celaya MD [address] [facility] [address] [address] Phone: tel: fax: [facility] [address] [place] [address] [address] [id number] Phone: tel: Referral ID Status Reason Start Date Expiration Date Visits Re quested Visits Authorized [id number] Closed 08/15/2024 09/14/2025 1 1 Encounter Details Date Type Department Care Team (Latest Contact Info) Description 08/29/2024 8:30 AM WIPER BLENDER - 08/29/2024 11:59 PM WIPER BLENDER Hospital Encounter [facility] [address] [place] [address] [address] [phone] Left knee pain, unspecified chronicity; Acute knee pain, unspecified laterality Discharge Disposition: Discharge to home or self [...] materials from doctor or pharmacy Sometimes 03/08/2024 [facility] Utilities Answer Date Recorded In the past 12 months has th e [employer], gas, oil, or water [employer] threatened to shut off services in your [...] often do you attend chur ch or quaker services? More than 4 times per year 12/16/2023 Do you belong to any clubs o r organizations such as jew groups, unions, fraternal or athletic groups, or [...] Recorded Patient Health Questionnaire-2 Score 0 01/06/2024 [facility] [place] of Occupat ional Health - Occupational Stress [...] place to sleep or slept in a intermediate (including now)? No 12/16/2023 Personal Safety Answer Date Recorded Have you ever been in or are you currently in a harmful physical or emotional relationship or is someone making you feel afraid or unsafe? Denies 12/15/2023 Sex and Gender Information Value Date Recorded Sex Assigned at Not on file Legal Sex Male 3:25 PM WIPER BLENDER Gender Identity Not on file Sexual Orientation [...] mg tablet Take 75 mg by mouth documented as of this encounter Discharge Disposition Disposition Code Departure Means Destination Discharge to home or self care documented in this encounter Plan of Treatment Upcoming Encounters Date Type Department Care Team (Latest Contact Info) Description 10/23/2024 10:00 AM WIPER BLENDER Hospital Encounter [facility] Operating Room [id number] [place] [address] [place] [address] [address] 10/23/2024 10:00 AM WIPER BLENDER - 10/23/2024 1:00 PM WIPER BLENDER Surgery [facility] Operating Room [address] [place] [address] [place] [address] [facility] [place] [place] [address] [place], [place] [id number] ARTHROPLASTY TOTAL KNEE LEFT Scheduled Procedures Name Priority Associated Diagnoses Date/Ti me ARTHROPLASTY TOTAL KNEE left knee osteoarthritis 10/23/2024 10:00 AM WIPER BLENDER ESOPHAGOGASTRODUODENOSCOPY Dysphagia, unspecified type documented as of this encounter Procedures Procedure Name Priority Date/Time Associated Diagnosis Comments XR PELVIS 1 OR 2 VIEWS Schedule Routine, Read Routine (OP Routine) 08/29/2024 9:28 AM WIPER BLENDER Acute knee pain, unspecified laterality XR KNEE LEFT 4 OR MORE VIEWS Schedule Routine, Read Routine (OP Routine) 08/29/2024 9:28 AM WIPER BLENDER Left knee pain, unspecified chronicity documented in this encounter Results * XR Pelvis 1 or 2 Views (08/29/2024 9:28 AM WIPER BLENDER) Anatomical Region Laterality Modality Body, Pelvis N/A Computed Radiogr aphy 08/29/2024 11:0 7 AM WIPER BLENDER Impressions 08/29/2024 11:10 AM WIPER BLENDER 1. 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 2. ??Mild bilateral hip osteoarthritis. Dictated by: Ap Mcgregor M.D. The radiology attending physician has personally reviewed this study, and had reviewed and/or edited this written report and agrees with it. Electronically signed by: Errol Parnell M.D. Narrative 08/29/2024 11:10 AM WIPER BLENDER EXAMINATION: XR KNEE LEFT 4 OR MORE [...] IMG XR PROCEDURES Final Result * XR Knee Left 4 or More Views (08/29/2024 9:28 AM WIPER BLENDER) Anatomical Region Laterality Modality Lower Extremities, Knee Left Computed Radiography 08/29/2024 11:0 7 AM WIPER BLENDER Impressions 08/29/2024 11:10 AM WIPER BLENDER 1. 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 2. ??Mild bilateral hip osteoarthritis. Dictated by: Ap Mcgregor M.D. The radiology attending physician has personally reviewed this study, and had reviewed and/or edited this written report and agrees with it. Electronically signed by: Errol Parnell M.D. Narrative 08/29/2024 11:10 AM WIPER BLENDER EXAMINATION: XR KNEE LEFT 4 OR MORE [...] documented in this encounter Visit Diagnoses Diagnosis Left knee pain, unspecified chronicity Acute knee pain, unspecified laterality documented in this encounter Care Teams Wiper Blender Relationship Specialty Start Date End Date Wolfgang Serrano MD [address] [place] [phone] PCP - General Family Medicine 10/24/24 Wolfgang Serrano MD [address] [address] Family Medicine 08/03/24 Unknown, Notinfile 03/12/22 [place] [address] [address] [facility] [address] [place] [address] 03/12/22 Chuy Enriquez MD [address] [facility] [address] [place] [address] Consulting Physician Pulmonary Disease 10/13/23 Luis Felipe Cedillo MD [address] [facility] [address], [place] [address] Consulting Physician Gastroenterology 10/13/23 Marlene Thornton MD [address] [address] Surgeon Vascular Surgery 11/10/23 documented as of this encounter
--- OUTSIDE RECORDS SUMMARY | 2024-10-11 01:51 | XMS_ITS | Encounter Summary ---
Author Organization [facility] Healthcare Address [address] [place] [address] Care Team Providers Care Break Off Worker Name Role Phone Wolfgang Serrano MD Primary Care Provider Unknown, Notinfile Unavailable Unavailable Santino Funk MD Unavailable Chuy Enriquez MD Unavailable Luis Felipe Cedillo MD Unavailable Marlene Thornton MD Unavailable Encounter Details Date Type Department Care Team (Late st Contact Info) Description 06/26/2024 11:59 PM CDT Anesthesia Event [facility] Operating Room [address] [place] [address] Jose A Romo, SENIOR SVP [address] [address] Anesthesia Record Procedure Summary Procedure Name Responsible Anesthesiologist Anesthesia Start Time Anesthesia Stop Time ARTHROPLASTY LEFT TOTAL KNEE/120min (Left: Knee) Events No events on file. Meds * Agents No agents on file. * Blood No blood administrations on file. Lines, Drains, and Airways No LDAs on file. documented in this encounter Social History Tobacco Use Types Packs/Day Years [...] materials from doctor or pharmacy Sometimes 03/08/2024 [facility] Utilities Answer Date Recorded In the past 12 months has [employer], gas, oil, or water company threatened to [...] often do you attend chur ch or mandaeism services? 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 Anesthesia Evaluation Abrahan Gtz Jr. is a 78 y.o. male ARTHROPLASTY LEFT TOTAL KNEE/120min (Left: Knee) Pre-Op Diagnosis Codes: * Primary osteoarthritis of left knee [M17.12] HISTORY HPI Abrahan Gtz is a 78 yo M with PMH of CVA w/ left hemiplegia, seizures, HTN, HLD, AAA, GERD, anemia, asthma, chronic pain, and OA of the left knee being evaluated for a planned left total knee arthroplasty. No past medical history of Malignant hyperthermia, Motion sickness, PONV (postoperative nausea and vomiting), or Sleep apnea. Past Medical History Information obtained from: patient and chart. Information obtained during: In Person Neurological + CVA/Stroke - hemiplegia (left). Number of CVA episodes: 1. Date of last CVA: 11/2023. + Seizures (last 1997 unknown cause - no medications) + Dementia/mild cognitive impairment (Pt denies) Etiology: Alzheimer type. Cardiovascular + Hypertension + Hyperlipidemia + Systolic or diastolic dysfunction w/o CHF Diastolic dysfunction w/o CHF. Diastolic function: stage I - impaired relaxation LVEF: 60-70%. + PAD/Aorta disease (Infrarenal abdominal aortic aneurysm (AAA)) - Pertinent negatives: CAD ; CT and DVT/PE Respiratory + Asthma Dyspnea frequency: 2 days/week or less. Rescue inhaler use: 2 days/week or less. Pertinent negatives: sleep apnea ([place]) and non-smoker Comments: Lung nodule Hepatic / Heme + History of anemia - iron deficiency Comments: Clotting disorder noted - Pt denies and says he was never worked up or treated Gastrointestinal + GERD - on daily therapy. Asymptomatic. + Hiatal hernia Comments: Peptic ulcer Renal / Renal/ system: negative Musculoskeletal/Pain + Chronic pain - back pain. + Chronic opioid use ([place]) - less than daily. + Osteoarthritis Comments: total knee replacement, right Endocrine / Other + Thyroid disease (Goiter - s/p THYROIDECTOMY) - hypothyroidism Pertinent negatives: diabetes mellitus and cancer history Comments: Vertigo Functional Capacity Functional capacity: <4 METs Functional capacity limited by a non-cardiovascular, non-pulmonary condition. Comments: PT daily - last day Wednesday Review of Systems + pedal edema + dizziness + muscle weakness (Left sided weakness) + chronic pain + numbness/tingling + hard of hearing + vision loss (+glasses) + dysphagia (on occasion) Pertinent negatives: SOB; chest pain; palpitations; orthopnea; PND; previous transfusion; dentures/partials; chipped/loose teeth and abdominal pain PAT Summary and Plans Anesthesia plan discussed: spinal / epidural anesthesia. Pain management discussed: regional block. Patient Active Problem List Diagnosis Date Noted Dysphagia 04/20/2024 Hemiparesis affecting left side as late effect of cerebrovascular accident (CVA) ([facility]) ([facility]) 03/21/2024 Primary osteoarthritis of left knee 12/29/2023 Moderate malnutrition ([facility]) 12/17/2023 Acute CVA (cerebrovascular accident) ([facility]) 12/07/2023 Infrarenal abdominal aortic aneurysm (AAA) without rupture ([facility]) 11/12/2023 Lung nodule 10/13/2023 Nocturnal cough 10/13/2023 Hiatal hernia 10/13/2023 Upper GI bleed 10/11/2023 Acquired hypothyroidism 10/11/2023 Acute blood loss anemia 10/11/2023 Coffee ground emesis 10/10/2023 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 05/18/2023 Biceps tendinitis of left upper extremity 05/18/2023 Tear of left glenoid labrum 05/18/2023 Hx of total knee replacement, right 12/01/2022 Neuropathy ([facility]) 12/01/2022 Idiopathic peripheral neuropathy Abnormality of gait and mobility Pain due to total right knee replacement ([facility]) 04/28/2022 Hamstring tendinitis of right thigh 04/28/2022 Quadriceps weakness 04/28/2022 Edema 04/04/2020 Intermittent claudication ([facility]) 04/04/2020 Iron deficiency anemia 04/04/2020 Peripheral vascular disease ([facility]) 04/04/2020 Goiter 12/05/2019 Subchondral insufficiency fracture of condyle of left femur ([facility]) ([facility]) 08/30/2018 Closed fracture of left tibial plateau with delayed healing 08/30/2018 Closed fracture of right tibial plateau with delayed healing 08/30/2018 Closed nondisplaced osteochondral fracture of left patella with delayed healing 08/30/2018 Closed osteochondral fracture of patella, right, with delayed healing, subsequent encounter 08/30/2018 Complex tear of medial meniscus of right knee as current injury 08/30/2018 Complex tear of medial meniscus of left knee as current injury 08/30/2018 Primary osteoarthritis of both knees 08/08/2018 Cataract of right eye 06/22/2018 Diplopia 03/08/2018 Esotropia 03/08/2018 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 Breast pain, right 02/01/2018 Skin lesion of breast 02/01/2018 Past Medical History: Diagnosis Date Acute gastric ulcer without hemorrhage or perforation Ulcer, gastric, acute - (Added by TW Conv) Alzheimer's dementia ([facility]) Asthma Back pain Cataract Closed fracture of left tibial plateau with delayed healing Closed fracture of right tibial plateau with delayed healing Closed nondisplaced osteochondral fracture of left patella with delayed healing Closed osteochondral fracture of patella, right, with delayed healing, subsequent encounter Clotting disorder ([facility]) ([facility]) Complex tear of medial meniscus of left knee as current injury Complex tear of medial meniscus of right knee as current injury Cramps of lower extremity Diverticulitis of colon Easy bruisability Enlarged prostate Fatigue Frequent urination Gastroesophageal reflux disease GERD Hyperlipidemia Hypertension Hypothyroidism Incontinence of urine Muscle weakness Osteoarthritis Osteoarthritis Peptic ulcer Peptic ulcer disease Seizures ([facility]) 1997 last seizure in 1997 SOB (shortness of breath) on exertion Stroke ([facility]) 12/09/2023 left leg works ok, cannot use left arm Subchondral insufficiency fracture of condyle of left femur ([facility]) ([facility]) Vertigo Vision changes Visual disturbance hx of double vision, corrective lenses Past Surgical History: Procedure Laterality Date CATARACT EXTRACTION, BILATERAL Bilateral 2018 HERNIA REPAIR 1979 Hiatal Hernia repair KNEE ARTHROSCOPY Bilateral THYROIDECTOMY 12/27/2019 No Known Allergies Med List Status: Nurse Complete Set By: Madie Trujillo RN at 06/14/2024 9:37 AM Taking? Last Dose Start Date End Date Provider Adv HFA 230-21 mcg/actuation inhaler -- 11/09/23 -- Garett Shah MD albuterol HFA (PROVENTIL HFA,VENTOLIN HFA,PROAIR HFA) 90 mcg/actuation inhaler -- 02/03/23 -- Garett Shah MD aspirin 81 mg enteric coated tablet -- -- -- Garett Shah MD capsaicin 0.1 % cream -- 12/03/22 -- Nayan Mahajan II, MD Apply to your feet three to four times a day. cetirizine (ZyrTEC) 10 mg tablet -- 09/03/23 -- Garett Shah MD cholecalciferol (VITAMIN D-3) 2000 unit capsule -- 12/31/19 -- Last, Ruth Hogan MD Take 1 capsule (2,000 Units total) by mouth daily Patient taking differently: Take 1 capsule (2,000 Units total) by mouth nightly clobetasoL (TEMOVATE) 0.05 % ointment -- 11/17/23 -- Byron Woody IV, MD PhD Apply topically 2 (two) times a day To most severe rash/itch on your skin. Do not use on face, armpits, or groin. If your most severe rash has yellow crusts/flakes, then mix clobetasol ointment 1:1 with mupirocin ointment before applying it. For less severe rash/itch, use triamcinolone cream sent as a separate prescription. cyanocobalamin (Vitamin B-12) 1,000 mcg tablet -- -- -- Garett Shah MD cyclobenzaprine (FLEXERIL) 5 mg tablet -- 02/24/24 -- Garett Shah MD donepeziL (ARICEPT) 10 mg tablet -- 06/04/23 -- Nayan Mahajan II, MD Take 1 tablet by mouth nightly Flovent HFA 44 mcg/actuation inhaler -- 08/25/23 -- Garett Shah MD furosemide (LASIX) 20 mg tablet -- 04/10/24 -- Garett Shah MD gabapentin (NEURONTIN) 300 mg capsule -- 11/16/23 -- Garett Shah MD HYDROcodone-acetaminophen (NORCO) 5-325 mg per tablet -- 03/30/24 -- Jossie Montalvo PA Take 1 tablet by mouth every 6 (six) hours as needed for pain levothyroxine (SYNTHROID) 150 mcg tablet -- 09/19/21 -- Garett Shah MD magnesium oxide/magnesium (MAGNESIUM, OXIDE/AA CHELATE, ORAL) -- -- -- Garett Shah MD melatonin 10 mg tablet -- -- -- Garett Shah MD multivit-min/ferrous fumarate (MULTI VITAMIN ORAL) -- -- -- Garett Shah MD oxybutynin XL (DITROPAN-XL) 10 mg 24 hr tablet -- 11/07/21 -- Garett Shah MD pantoprazole DR (PROTONIX) 40 mg EC tablet -- -- -- Garett Shah MD pantoprazole DR (PROTONIX) 40 mg EC tablet () -- 01/06/24 04/20/24 Becky Montana MD Take 1 tablet (40 mg total) by mouth 2 (two) times a day Notes: REFILLS THROUGH PCP pravastatin (PRAVACHOL) 10 mg tablet -- -- -- ProviderGarett MD rosuvastatin (CRESTOR) 40 mg tablet -- -- -- Provider, MD Garett scopolamine 1 mg over 3 days patch 3 day -- 06/02/24 -- Provider, HistoricalMD senna-docusate (PERICOLACE) 8.6-50 mg -- -- -- Provider, MD Garett spironolactone (ALDACTONE) 25 mg tablet -- -- -- ProviderGarett MD tamsulosin (FLOMAX) 0.4 mg extended release capsule -- 01/29/20 -- Garett Shah MD tiZANidine (ZANAFLEX) 2 mg tablet -- 09/08/23 -- Nayan Mahajan II, MD TAKE 1 TABLET BY MOUTH EVERY 8 HOURS NEEDED FOR MUSCLE SPASM Patient taking differently: Take 1 tablet (2 mg total) by mouth nightly triamcinolone (KENALOG) 0.1 % ointment -- 02/15/24 -- Hesham Lamb PA Apply topically 2 (two) times a day as needed (Rash) turmeric root extract 500 mg capsule -- -- -- ProviderGarett MD vibegron (Gemtesa) 75 mg tablet -- -- -- Provider, MD Garett -- Notes: -- Patient not taking: -- Notes: Ongoing Comment Aravind Duran, PT 01/09/2024 7:20 PM 01/09/24: no severe medication interactions. Yajaira, PT. Current Outpatient Medications: Advair HFA 230-21 mcg/actuation inhaler albuterol HFA (PROVENTIL HFA,VENTOLIN HFA,PROAIR HFA) 90 mcg/actuation inhaler aspirin 81 mg enteric coated tablet capsaicin 0.1 % cream cetirizine (ZyrTEC) 10 mg tablet cholecalciferol (VITAMIN D-3) 2000 unit capsule clobetasoL (TEMOVATE) 0.05 % ointment cyanocobalamin (Vitamin B-12) 1,000 mcg tablet cyclobenzaprine (FLEXERIL) 5 mg tablet donepeziL (ARICEPT) 10 mg tablet Flovent HFA 44 mcg/actuation inhaler furosemide (LASIX) 20 mg tablet gabapentin (NEURONTIN) 300 mg capsule HYDROcodone-acetaminophen (NORCO) 5-325 mg per tablet levothyroxine (SYNTHROID) 150 mcg tablet magnesium oxide/magnesium (MAGNESIUM, OXIDE/AA CHELATE, ORAL) melatonin 10 mg tablet multivit-min/ferrous fumarate (MULTI VITAMIN ORAL) oxybutynin XL (DITROPAN-XL) 10 mg [address] (PROTONIX) 40 mg EC tablet pantoprazole DR (PROTONIX) 40 mg EC tablet pravastatin (PRAVACHOL) 10 mg tablet rosuvastatin (CRESTOR) 40 mg tablet scopolamine 1 mg over 3 days patch 3 day senna-docusate (PERICOLACE) 8.6-50 mg spironolactone (ALDACTONE) 25 mg tablet tamsulosin (FLOMAX) 0.4 mg extended release capsule tiZANidine (ZANAFLEX) 2 mg tablet triamcinolone (KENALOG) 0.1 % ointment turmeric root extract 500 mg capsule vibegron (Gemtesa) 75 mg tablet Social History Tobacco Use Smoking Status Former Current packs/day: 0.00 Types: Cigarettes Start date: 1965 Quit date: 1966 Years since quittin.7 Passive exposure: Never Smokeless Tobacco Never Alcohol Use: Not At Risk (06/14/2024) AUDIT-C Frequency of Alcohol Consumption: Monthly or less Average Number of Drinks: 1 or 2 Frequency of Binge Drinking: Never Substance and Sexual Activity Drug Use Not Currently Types: Alcohol Family History Problem Relation Age of Onset Heart failure Other Family history of Congestive heart failure; Heart disease Other Family history of Heart disease; Osteoarthritis Other Family history of Osteoarthritis; Osteoporosis Other Family history of Osteoporosis; Heart attack Mother Heart attack Father Heart attack Sister PAT Physical Exam Airway Exam: Mallampati: II Cervical ROM: FROM Patient presents with poor mouth opening, amanda and mustache. Cardiovascular Exam: Rate: regular Rhythm: regular Pulmonary Exam: LCTA, bilat EENT Exam: trachea midline Skin Exam: Skin is warm and dry. Current state: Patient's current state is cooperative and interactive. Additional comments: Left sided weakness s/p CVA 11/2023 Vitals: 09/04/24 0946 BP: 120/77 Resp: 18 Temp: 36.6 ??C (97.9 ??F) SpO2: 97% ECHO 12/08/2023: Normal left ventricular size. Mild concentric left ventricular hypertrophy. Impaired diastolic relaxation Grade I. Ejection fraction is measured at 62 %. Normal right ventricular size. Normal right ventricular systolic function. Normal atrial septum. Saline contrast study performed without evidence of right to left shunt. Normal structure of the mitral valve. Trivial regurgitation of the mitral valve. Aortic cusps appear mildly sclerotic. Aortic cusps appear mildly calcified. No evidence of hemodynamically significant aortic stenosis by Doppler. No aortic regurgitation. Normal structure of the tricuspid valve. Estimated peak RVSP is 17 mmHg. Trivial regurgitation in the tricuspid valve. EKG 12/07/2023: SINUS BRADYCARDIA MINIMAL VOLTAGE CRITERIA FOR LVH, CONSIDER NORMAL VARIANT [MEETS CRITERIA IN ONE OF: R(aVL), S(V1), R(V5), R(V5/V6)+S(V1)] BORDERLINE ECG Compared to prior EKG, PVCs are no longer present PT: No results found for requested labs within last 30 days. INR: No results found for requested labs within last 30 days. APTT: No results found for requested labs within last 30 days. Hgb A1C: No results found for requested labs within last 30 days. CBC RBC: 06/14/2024: 4.44 M/cumm RDW: No results found for requested labs within last 30 days. MCHC: 06/14/2024: 32.3 g/dL MCH: 06/14/2024: 30.6 pg MCV: 06/14/2024: 94.8 fL Hct: 06/14/2024: 42.1 % Hgb: 06/14/2024: 13.6 g/dL WBC: 06/14/2024: 7.6 K/cumm MPV: 06/14/2024: 10.7 fL Platelets: 06/14/2024: 239 K/cumm RDW CV: 06/14/2024: 15.8 % (H) RDW Sd: 06/14/2024: 55.3 fL (H) BMP Glucose: 06/14/2024: 112 mg/dL Calcium: 06/14/2024: 9.7 mg/dL Sodium: 06/14/2024: 138 mmol/L Potassium: 06/14/2024: 4.1 mmol/L CO2: 06/14/2024: 22 mmol/L Chloride: 06/14/2024: 105 mmol/L BUN: 06/14/2024: 14 mg/dL Creatinine: 06/14/2024: 1.05 mg/dL STOP-Bang Total Score: 3 Anesthesia Plan ASA 3 Planned anesthesia: Spinal and PNB - single shot Lower extremity: femoral nerve block (distal mid thigh) Induction: Induction: intravenous. Postoperative Plan: Postoperative administration opioids intended. No postoperative mechanical ventilation intended. Patient's planned disposition post procedure is Floor. No trial extubation planned. Informed Consent: Discussed plan with attending and PAVING AND SURFACING LABOURER. Anesthesia plan and risks discussed with patient. Consent and Attending signature: I and/or my designee have discussed the anesthesia plan, benefits, possible alternatives, parental presence at time of induction (if indicated), and clinically relevant risks that may include dental injury, unintentional awareness, and/or other complications. The patient and/or parent/legal guardian understand, and agree to proceed. All questions answered. 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 - 10/23/2024 1:00 PM [facility] Surgery [facility] Operating Room [address] [place] [address] [place] [address] [address] ARTHROPLASTY TOTAL KNEE LEFT Scheduled Procedures Name Priority Associated Diagnoses Date/Ti me ARTHROPLASTY TOTAL KNEE left knee osteoarthritis 10/23/2024 10:00 AM TURFGRASS TECHNICIAN ESOPHAGOGASTRODUODENOSCOPY Dysphagia, unspecified type documented as of this encounter Visit Diagnoses Not on filedocumented in this encounter Care Teams Break Off Worker Relationship Specialty Start Date End Date Wolfgang Serrano MD PCP - General Family Medicine 05/05/23 08/02/24 Unknown, Notinfile 03/12/22 [place] [address] [facility] [address] [place] [address] 03/12/22 Chuy Enriquez MD [address] [facility] [address] [place] [address] Consulting Physician Pulmonary Disease 10/13/23 Luis Felipe Cedillo MD [address] [facility] [address], [place] [id number] Consulting Physician Gastroenterology 10/13/23 Marlene Thornton MD [address] [facility] [address] [address] Surgeon Vascular Surgery 11/10/23 documented as of this encounter
--- OUTSIDE RECORDS SUMMARY | 2024-10-11 01:51 | XMS_ITS | Encounter Summary ---
Author Organization [facility] Healthcare Address [address] [place] [address] Care Team Providers Care Valuation Consultant Name Role Phone Wolfgang Serrano MD Primary Care Provider Wolfgang Serrano MD Primary Care Provider Wolfgang Serrano MD Unavailable Unknown, Notinfile Unavailable Unavailable Santino Funk MD Unavailable Chuy Enriquez MD Unavailable [phone] Luis Felipe Cedillo MD Unavailable Marlene Thornton MD Unavailable Encounter Details Date Type Department Care Team (Late st Contact Info) Description 07/26/2024 Telephone [facility] Medical Group Orthopedics and Sports Medicine at [place] [phone] [facility] [address] [place] [phone] Grey Dykes MD [address] [place] [address] Social History Tobacco Use Types Packs/Day [...] materials from doctor or pharmacy Sometimes 03/08/2024 [facility] Utilities Answer Date Recorded In the past [...] often do you attend chur ch or caodaism services? More than 4 times per year 12/16/2023 Do you belong to any clubs o r organizations such as jehovah's witness groups, unions, fraternal or athletic groups, or [...] Recorded Patient Health Questionnaire-2 Score 0 01/06/2024 [facility] [place] [facility] Occupat ional Health - Occupational Stress [...] place to sleep or slept in a mcfp (including now)? No 12/16/2023 Personal Safety Answer Date Recorded Have you ever been in or are you currently in a harmful physical or emotional relationship or is someone making you feel afraid or unsafe? 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 Gender Identity Not on file Sexual Orientation Not on file documented as of this encounter Miscellaneous Notes * Telephone Encounter - Alejandra Rubalcava - 07/26/2024 10:15 AM CDT Patient calling requesting return call regarding surgery documented in this encounter Plan of Treatment Upcoming Encounters Date Type Department Care Team (Latest Contact Info) Description 10/23/2024 10:00 AM MACHINE DYER Hospital Encounter [facility] Operating Room [address] [place] [address] [place] [address] [facility] [address] [place] [address] 10/23/2024 10:00 AM MACHINE DYER - 10/23/2024 1:00 PM MACHINE DYER Surgery [facility] Operating Room [address] [place] [address] [place] [address] [facility] [address] [place] [address] ARTHROPLASTY TOTAL KNEE LEFT Scheduled Procedures Name Priority Associated Diagnoses Date/Ti me ARTHROPLASTY TOTAL KNEE left knee osteoarthritis 10/23/2024 10:00 AM MACHINE DYER ESOPHAGOGASTRODUODENOSCOPY Dysphagia, unspecified type documented as of this encounter Visit Diagnoses Not on filedocumented in this encounter Care Teams Valuation Consultant Relationship Specialty Start Date End Date Wolfgang Serrano MD PCP - General Family Medicine 05/05/23 08/02/24 Wolfgang Serrano MD [address] [address] PCP - General Family Medicine 08/03/24 Wolfgang Serrano MD Family Medicine 08/03/24 Unknown, Notinfile 03/12/22 [place] [address] [facility] [address] [place] [address] 03/12/22 Chuy Enriquez MD [address] [facility] [address] [place] [address] Consulting Physician Pulmonary Disease 10/13/23 Luis Felipe Cedillo MD [address] [facility] [facility] [address] [address] Consulting Physician Gastroenterology 10/13/23 Marlene Thornton MD [address] [facility] [address] [address] Surgeon Vascular Surgery 11/10/23 documented as of this encounter
--- OUTSIDE RECORDS SUMMARY | 2024-10-11 01:51 | XMS_ITS | Encounter Summary ---
Author Organization [facility] Healthcare Address [address] [place] [address] Care Team Providers Care Corrugator Operator Name Role Phone Wolfgang Serrano MD Primary Care Provider Unknown, Notinfile Unavailable Unavailable Santino Funk MD Unavailable Chuy Enriquez MD Unavailable [phone] Luis Felipe Cedillo MD Unavailable Marlene Thornton MD Unavailable Reason for Referral * Consultation (Routine) - Closed Specialty Diagnoses / Procedures Referred By Contac t Referred To Contact Physical Therapy Diagnoses [place] [address] [address] Phone: tel: fax: [facility] at [facility] [address] [place] [address] Phone: tel: fax: Referral ID Status Reason Start Date Expiration Date V isits Requested Visits Authorized [id number] Closed Specialty Services Required 06/22/2024 07/22/2025 4 4 Question Answer PTRFR PT Evaluate and Treat Reason for Visit EVAL & TREAT FOR UP COMING SURGERY LT KNEE REPLACEMENT Therapy options discussed with patient? Yes Location provided for therapy services is: Patient requested/Patient preferred Please select the performing region: [facility] [[id number]] Please select the performing department: [facility] OP PT [[id number]] # of visits: 4 Comments PLEASE INSTRUCT ON WALKER USE, ACTIVE ASSISTED RANGE OF MOTION EXERCISES FOR KNEES, LEG LIFTS AND LEG CURLS. TEACH USE OF A WALKER FOR GETTING ON OFF TOILET IN AND OUT OF SHOWER. THERAPY TO ASSESS AND TEACH USE OF ASSISTIVE DEVICE FOR KNEE REPALCEMENT Encounter Details Date Type Department Care Team (Late st Contact Info) Description 06/22/2024 Orders Only [facility] Medical Group Orthopedics and Sports Medicine at [facility] [address] [facility] [address] [place] [phone] [place] [address] [address] Arthritis of left knee (Primary Dx) Social History Tobacco Use Types Packs/Day Years [...] materials from doctor or pharmacy Sometimes 03/08/2024 [facility] Utilities Answer Date Recorded In the [...] often do you attend chur ch or alevism services? More than 4 times per year 12/16/2023 Do you belong to any clubs o r organizations such as jain groups, unions, fraternal or athletic groups, or [...] Recorded Patient Health Questionnaire-2 Score 0 01/06/2024 [facility] [place] of Occupat ional Health - Occupational Stress [...] place to sleep or slept in a usp (including now)? No 12/16/2023 Personal Safety Answer Date Recorded Have you ever been in or are you currently in a harmful physical or emotional relationship or is someone making you feel afraid or unsafe? Denies 12/15/2023 Sex and Gender Information Value Date Recorded Sex Assigned at Not on file Legal Sex Male 3:25 PM TILE CLASSIFIER Gender Identity Not on file Sexual Orientation Not on file documented as of this encounter Plan of Treatment Upcoming Encounters Date Type Department Care Team (Latest Contact Info) Description 10/23/2024 10:00 AM TILE CLASSIFIER Hospital Encounter [facility] Operating Room [address] [place] [address] [place] [address] [address] 10/23/2024 10:00 AM TILE CLASSIFIER - 10/23/2024 1:00 PM TILE CLASSIFIER Surgery [facility] Operating Room [address] [place] [address] [place] [address] [address] ARTHROPLASTY TOTAL KNEE LEFT Scheduled Procedures Name Priority Associated Diagnoses Date/Ti me ARTHROPLASTY TOTAL KNEE left knee osteoarthritis 10/23/2024 10:00 AM TILE CLASSIFIER ESOPHAGOGASTRODUODENOSCOPY Dysphagia, unspecified type Scheduled Referrals Name Type Priority Associated Diagnoses Order Schedule Ambulatory referral order to Physical Therapy - Outpatient Referral Routine Arthritis of left knee Expected: 06/29/2024 (Approximate), Expires: 06/22/2025 documented as of this encounter Visit Diagnoses Diagnosis Arthritis of left knee- Primary documented in this encounter Care Teams Corrugator Operator Relationship Specialty Start Date End Date Wolfgang Serrano MD PCP - General Family Medicine 05/05/23 08/02/24 Unknown, Notinfile 03/12/22 [place] [address] [facility] [address] [place] [address] 03/12/22 Chuy Enriquez MD [address] [facility] [address] [place] [address] Consulting Physician Pulmonary Disease 10/13/23 Luis Felipe Cedillo MD [address] [facility] [address] [place] [address] Consulting Physician Gastroenterology 10/13/23 Marlene Thornton MD [address] [facility] [address] [address] Surgeon Vascular Surgery 11/10/23 documented as of this encounter
--- OUTSIDE RECORDS SUMMARY | 2024-10-11 01:51 | XMS_ITS | Encounter Summary ---
Author Organization [facility] Address [address] [facility] [address] [place] [address] Phone Care Team Providers Care Analytics Analyst Name Role Phone Wolfgang Serrano MD Primary Care Provider Unknown, Notinfile Unavailable Unavailable Santino Funk MD Unavailable Chuy Enriquez MD Unavailable Luis Felipe Cedillo MD Unavailable [phone] Marlene Thornton MD Unavailable Reason for Visit * Consultation (Routine) - Closed Specialty Diagnoses / Procedures Referred By Contac t Referred To Contact Neurology Diagnoses Cerebrovascular accident (CVA), unspecified mechanism (HCC) Kostas Joshi MD [address] [facility] [place] [address] Phone: tel: fax: [facility] [address] [facility] [address] [place] [address] Phone: tel: fax: Referral ID Status Reason Start Date Expiration Date V isits Requested Visits Authorized [id number] Closed Specialty Services Required 04/20/2024 05/20/2025 1 1 Encounter Details Date Type Department Care Team (Late st Contact Info) Description 07/12/2024 8:00 AM CDT Office Visit [facility] [address] [facility] [address] [place] [address] Gomez Reddy MD [address] [facility] [address] [place] [address] Cerebrovascular accident (CVA), unspecified mechanism (HCC) Social History Tobacco Use Types Packs/Day Years Used Date Smoking Tobacco: Former Cigarettes 1 1966 Passive Smoke Exposure: Never Smokeless Tobacco: Never Tobacco Cessation:Counseling Given: Not Answered Alcohol Use Standard Drinks/Week Comments Yes 1 [...] materials from doctor or pharmacy Sometimes 03/08/2024 [facility] Utilities Answer Date Recorded In the past 12 months has e [employer], gas, oil, or water [employer] threatened to shut off services in your [...] often do you attend chur ch or adventism services? More than 4 times per year 12/16/2023 Do you belong to any clubs o r organizations such as voodoo groups, unions, fraternal or athletic groups, or [...] Recorded Patient Health Questionnaire-2 Score 0 01/06/2024 [facility] of Occupat ional Health - Occupational Stress [...] place to sleep or slept in a [place] facility (including now)? No 12/16/2023 Personal Safety Answer Date Recorded Have you ever been in or are you currently in a harmful physical or emotional relationship or is someone making you feel afraid or unsafe? Denies 12/15/2023 Sex and Gender Information Value Date Recorded Sex Assigned at Not on file Legal Sex Male 3:25 PM BLOWER MECHANIC Gender Identity Not on file Sexual Orientation Not on file documented as of this encounter Last Filed Vital Signs Vital Sign Reading Time Taken Comments Blood Pressure 134/78 07/12/2024 7:45 AM CDT Pulse 53 07/12/2024 7:45 AM CDT Temperature - - Respiratory Rate - - Oxygen Saturation - - Inhaled Oxygen Concentration - - Weight 85.3 kg (188 lb) 07/12/2024 7:45 AM CDT Height 179.1 cm (5' 10.5 ) 07/12/2024 7:45 AM CD T Body Mass Index 26.59 07/12/2024 7:45 AM CDT documented in this encounter Progress Notes * Gomez Reddy MD - 07/12/2024 8:00 AM CDT Images from the original note were not included. Stroke Clinic Visit Patient Abrahan Gtz Jr. 78 y.o. M who presents as a new patient referred by Dr. Joshi. History of Presenting Illness Mr. 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 His dysphagia has become worse since the stroke, for which he has seen GI and is scheduled for intervention. He continues to get physical therapyafter the stroke, but it was challenging due to left knee arthritis which is being considered for areplacement. He is on aspirin 81 mg and statin for secondary stroke prevention. His dysphagia is for both solids and liquids but worse with solids- steak. Quit smoking in 1966 Strong family history of cardiovascular illness. Past Medical/ Surgical/ Allergy History Past Medical History: Diagnosis Date Acute gastric ulcer without hemorrhage or perforation Ulcer, gastric, acute - (Added by TW Conv) Alzheimer's dementia (HCC) Asthma Back pain Cataract Closed fracture of left tibial plateau with delayed healing Closed fracture of right tibial plateau with delayed healing Closed nondisplaced osteochondral fracture of left patella with delayed healing Closed osteochondral fracture of patella, right, with delayed healing, subsequent encounter Clotting disorder ([facility]) ([facility]) Complex tear of medial meniscus of left knee as current injury Complex tear of medial meniscus of right knee as current injury Cramps of lower extremity Diverticulitis of colon Easy bruisability Enlarged prostate Fatigue Frequent urination Gastroesophageal reflux disease GERD Hyperlipidemia Hypertension Hypothyroidism Incontinence of urine Muscle weakness Osteoarthritis Osteoarthritis Peptic ulcer Peptic ulcer disease Seizures ([facility]) 1997 last seizure in 1997 SOB (shortness of breath) on exertion Stroke ([facility]) 12/09/2023 left leg works ok, cannot use left arm Subchondral insufficiency fracture of condyle of left femur ([facility]) Vertigo Vision changes Visual disturbance hx of double vision, corrective lenses Past Surgical History: Procedure Laterality Date CATARACT EXTRACTION, BILATERAL Bilateral 2018 HERNIA REPAIR 1979 Hiatal Hernia repair KNEE ARTHROSCOPY Bilateral THYROIDECTOMY 12/27/2019 No Known Allergies Family History Family History Problem Relation Age of Onset Heart failure Other Family history of Congestive heart failure; Heart disease Other Family history of Heart disease; Osteoarthritis Other Family history of Osteoarthritis; Osteoporosis Other Family history of Osteoporosis; Heart attack Mother Heart attack Father Heart attack Sister Social History Tobacco Use: Medium Risk (07/12/2024) Patient History Smoking Tobacco Use: Former Smokeless Tobacco Use: Never Passive Exposure: Never Alcohol Use: Not At Risk (06/14/2024) AUDIT-C Frequency of Alcohol Consumption: Monthly or less Average Number of Drinks: 1 or 2 Frequency of Binge Drinking: Never Current Outpatient Medications Current Outpatient Medications Medication Instructions Advair HFA 230-21 mcg/actuation inhaler 2 puffs, inhalation, 2 times daily albuterol HFA (PROVENTIL HFA,VENTOLIN HFA,PROAIR HFA) 90 mcg/actuation inhaler 2 puffs, Every 4 hours PRN aspirin 81 mg, oral, Daily capsaicin 0.1 % cream Apply to your feet three to four times a day. cetirizine (ZYRTEC) 10 mg, oral, Daily cholecalciferol (VITAMIN D-3) 2,000 Units, oral, Daily clobetasoL (TEMOVATE) 0.05 % ointment topical, 2 times daily, To most severe rash/itch on your skin. Do not use on face, armpits, or groin. If your most severe rash has yellow crusts/flakes, then mixclobetasol ointment 1:1 with mupirocin ointment before applying it. For less severe rash/itch, use t riamcinolone cream sent as a separate prescription. cyanocobalamin (VITAMIN B-12) 1,000 mcg, oral, Daily cyclobenzaprine (FLEXERIL) 5 mg, oral, 3 times daily PRN donepeziL (ARICEPT) 10 mg, oral, Nightly Flovent HFA 44 mcg/actuation inhaler furosemide (LASIX) 20 mg, oral, Daily gabapentin (NEURONTIN) 600 mg, oral, 3 times daily Gemtesa 75 mg, oral HYDROcodone-acetaminophen (NORCO) 5-325 mg per tablet 1 tablet, oral, Every 6 hours PRN levothyroxine (SYNTHROID) 150 mcg, oral, Daily magnesium oxide/magnesium (MAGNESIUM, OXIDE/AA CHELATE, ORAL) 250 mg, oral, Daily melatonin 10 mg, oral, Nightly multivit-min/ferrous fumarate (MULTI VITAMIN ORAL) 1 tablet, oral, Daily oxyBUTYnin XL (DITROPAN-XL) 10 mg, oral, Nightly pantoprazole DR (PROTONIX) 40 mg, oral, [address] (PROTONIX) 40 mg, oral, Daily pravastatin (PRAVACHOL) 10 mg, oral, Daily rosuvastatin (CRESTOR) 40 mg, oral, Daily scopolamine 1 mg over 3 days patch 3 day APPLY WITH DISC BEHIND EAR REPLACE EVERY 3 DAYS senna-docusate (PERICOLACE) 8.6-50 mg 2 tablets, oral, Daily PRN spironolactone (ALDACTONE) 25 mg, oral, Daily tamsulosin (FLOMAX) 0.4 mg, oral, Nightly tiZANidine (ZANAFLEX) 2 mg tablet TAKE 1 TABLET BY MOUTH EVERY 8 HOURS NEEDED FOR MUSCLE SPASM triamcinolone (KENALOG) 0.1 % ointment topical, 2 times daily PRN turmeric root extract 1,000 mg, oral, Nightly All medications have been reviewed today. Allergies No Known Allergies Review of Systems A complete review of symptoms was performed including constitutional symptoms, cardiovascular, respiratory, gastrointestinal, genitourinary, musculoskeletal, neurological, psychiatric, endocrine, immunologic, integumentary, hematological, eyes, ears, nose, mouth and throat. All symptoms negative except as per HPI. Vitals and Physical Examination Vitals BP 134/78 (BP Location: Right arm, Patient Position: Sitting) Pulse 53 Ht 179.1 cm (5' 10.5 ) Wt 85.3 kg (188 lb) BMI 26.59 kg/m?? General Examination: General Examination: General: Appears comfortable at rest HEENT: NCAT, Moist mucous membranes CV: RRR, no peripheral edema PULM: Non-labored breathing, symmetric chest expansion ABD: Soft, non-distended EXT: no clubbing, cyanosis, edema appreciated SKIN: no rashes appreciated Neurological Examination: Cortical Language: Comprehension intact Neglect: No spatial neglect Speech intact No tactile neglect Naming intact Repetition intact Other cortical signs: (Check if tested, comment if abnormal) [ ] Agraphia Graphesthesia Acalculia Stereognosis Finger agnosia Reading and Writing Left-Right confusion Cranial Nerves Pupils equal round reacting to light and accommodation Visual acuity- not tested Visual white- No gross deficits on confrontation Ophthalmoscopy- No papilledema Extra-ocular motion full range Facial sensation intact bilaterally Brow raise symmetrical Loss of left nasolabial fold prominence Auditory acuity- intact to normal voice No tongue deviation Sternocleidomastoid/ shoulder shrug good strength b/l Motor Right Left Power Pronator Drift Orbiting (check the weak arm) Draw a native with your leg Power testing specifically in weak muscle groups (comment when tested) -- -- -- -- hemiplegia hemiplegia 3/5 -- Tone Spasticity (check when present) -- ++ Reflexes Elbow Knee Ankle Silva Babinski Clonus 2+ 2+ 2+ -- -- -- 3+ 3+ 2+ -- -- -- Sensory Right Left Touch ++ ++ Pain/Temperature ++ ++ Position/ Vibration ++ ++ (mention if reduced in UE/ LE or face) Gait and Coordination No dysmetria on [id number]-asowoe/ heel-hodges testing Patient uses a cane for short distances and Gait not tested Labs Lab Results Component Value Date HGBA1C 6.1 (H) 07/11/2024 TSH 7.57 (H) 10/11/2023 Imaging All head and neck images are reviewed and summarized below Decision Making Summary: Mr. 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 Etiology of the stroke is small vessel disease and aspirin and statin should suffice for secondary stroke prevention. (I reviewed echo- normal, no LAE;CTA H and N dis not show any actionable stenoses) The dysphagia is multi-factorial. 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 I recommend for GI to pursue their EGD plan. The patient will benefit from continued speech therapy from a stroke standpoint. Also, the stroke should not limit his eligibility for the knee surgery and I agree the surgery may facilitate better participation with physical therapy. I do not think it is safe for him to drive with the current degree of hemiparesis. Stroke Phenotype (sales representative health insurance neuro-images): Stroke Etiology: Small vessel disease Secondary Stroke Prevention Strategy: Aspirin, statin Counseling The patient and was counseled regarding stroke prevention, prognosis, treatment . Education provided was verbal . Additional time was spent in care coordination including review of outside records, images . Total encounter time was 85 minutes . documented in this encounter Plan of Treatment Upcoming Encounters Date Type Department Care Team (Latest Contact Info) Description 10/23/2024 10:00 AM BLOWER MECHANIC Hospital Encounter [facility] Operating Room [address] [place] [address] [place] [address] [address] [address] 10/23/2024 10:00 AM BLOWER MECHANIC - 10/23/2024 1:00 PM BLOWER MECHANIC Surgery [facility] Operating Room [address] [place] [address] [place] [address] [address] ARTHROPLASTY TOTAL KNEE LEFT Scheduled Procedures Name Priority Associated Diagnoses Date/Ti me ARTHROPLASTY TOTAL KNEE left knee osteoarthritis 10/23/2024 10:00 AM BLOWER MECHANIC ESOPHAGOGASTRODUODENOSCOPY Dysphagia, unspecified type documented as of this encounter Visit Diagnoses Diagnosis Cerebrovascular accident (CVA), unspecified mechanism (HCC) documented in this encounter Orders Outpatient Referral Count Last Ordered Date Fir st Ordered Date AMB REFERRAL TO NEUROLOGY 1 07/12/2024 documented in this encounter Care Teams Analytics Analyst Relationship Specialty Start Date End Date Wolfgang Serrano MD PCP - General Family Medicine 05/05/23 08/02/24 Unknown, Notinfile 03/12/22 [place] [address] [address] [facility] [address] [place] [address] 03/12/22 Chuy Enriquez MD [address] [facility] [address] [place] [address] Consulting Physician Pulmonary Disease 10/13/23 Luis Felipe Cedillo MD [address] [facility] [address], [place] [id number] Consulting Physician Gastroenterology 10/13/23 Marlene Thornton MD [address] [facility] [address], [place] [address] Surgeon Vascular Surgery 11/10/23 documented as of this encounter
--- OUTSIDE RECORDS SUMMARY | 2024-10-11 01:51 | XMS_ITS | Clinical Summary ---
Author Organization [facility] Address [address] [place] [address] Care Team Providers Care Software Configuration Manager Name Role Phone Wolfgang Serrano MD Primary Care Provider Wolfgang Serrano MD Unavailable [phone] Unknown, Notinfile Unavailable Unavailable Santino Funk MD Unavailable [phone] Chuy Enriquez MD Unavailable Luis Felipe Cedillo MD Unavailable [phone] Marlene Thornton MD Unavailable [phone] Allergies No known active allergies Medications cholecalciferol (VITAMIN D-3) 2000 unit capsule Take 1 capsule (2,000 Units total) by mouth daily 30 capsule 3 12/31/19 20 Active Additional Information Patient taking differently:2,000 Units oralNightly, Reported on 08/29/2024 tamsulosin (FLOMAX) 0.4 mg extended release capsule Take 1 capsule (0.4 mg total) by mouth nightly 01/29/20 20 Active turmeric root extract 500 mg capsule Take 1,000 mg by mouth nightly Active levothyroxine (SYNTHROID) 150 mcg tablet Take 1 tablet (150 mcg total) by mouth daily 09/19/20 21 Active oxybutynin XL (DITROPAN-XL) 10 mg 24 hr tabletIndication s:Urinary Urge Incontinence Take 1 tablet (10 mg total) by mouth nightly 11/07/19 22 Active capsaicin 0.1 % creamIndications :Neuropathic Pain Apply to your feet three to four times a day. 60 g 5 12/03/19 23 Active albuterol HFA (PROVENTIL HFA,VENTOLIN HFA,PROAIR HFA) 90 mcg/actuation inhaler 2 puffs every 4 (four) hours as needed 02/04/20 23 Active donepeziL (ARICEPT) 10 mg tabletIndication s: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) Take 1 tablet by mouth nightly 30 tablet 06/04/20 23 Active tiZANidine (ZANAFLEX) 2 mg tabletIndication s:Muscle cramps TAKE 1 TABLET BY MOUTH EVERY 8 HOURS NEEDED FOR MUSCLE SPASM 60 tablet 09/08/20 23 Active Additional Information Patient taking differently: 2 mg oral Nightly, Reported on 08/29/2024 melatonin 10 mg tablet Take 1 tablet (10 mg total) by mouth nightly Active Advair HFA 230-21 mcg/actuation inhaler Inhale 2 puffs 2 (two) times a day 11/09/19 24 Active cetirizine (ZyrTEC) 10 mg tablet Take 1 tablet (10 mg total) by mouth daily 09/03/20 23 Active Flovent HFA 44 mcg/actuation inhaler 08/25/20 23 Active clobetasoL (TEMOVATE) 0.05 % ointmentIndicati ons:Skin Inflammation Apply topically 2 (two) times a day To most severe rash/itch on your skin. Do not use on face, armpits, or groin. If your most severe rash has yellow crusts/flakes, then mix clobetasol ointment 1:1 with mupirocin ointment before applying it. For less severe rash/itch, use triamcinolone cream sent as a separate prescription. 60 g 3 11/17/19 24 Active gabapentin (NEURONTIN) 300 mg capsule Take 2 capsules (600 mg total) by mouth 3 (three) times a day 11/16/[address] (PROTONIX) 40 mg EC tabletIndication s:GI Bleed Take 1 tablet (40 mg total) by mouth 2 (two) times a day 180 tablet 01/06/20 24 Active magnesium oxide/magnesium (MAGNESIUM, OXIDE/AA CHELATE, ORAL)Indications :magnesium supplement Take 250 mg by mouth daily. Indications: magnesium supplement Active cyanocobalamin (Vitamin B-12) 1,000 mcg tabletIndication s:Prevention of Vitamin B12 Deficiency Take 1 tablet (1,000 mcg total) by mouth daily Active multivit-min/jennifer cori fumarate (MULTI VITAMIN ORAL)Indications :multi-vitamin support Take 1 tablet by mouth daily. Indications: multi-vitamin support Active senna-docusate (PERICOLACE) 8.6-50 mgIndications:co nstipation Take 2 tablets by mouth daily as needed for constipation Active triamcinolone (KENALOG) 0.1 % ointment Apply topically 2 (two) times a day as needed (Rash) 60 g 2 02/15/20 24 Active cyclobenzaprine (FLEXERIL) 5 mg tablet Take 1 tablet (5 mg total) by mouth 3 (three) times a day as needed 02/24/20 24 Active HYDROcodone-acet aminophen (NORCO) 5-325 mg per tabletIndication s:Pain Take 1 tablet by mouth every 6 (six) hours as needed for pain 20 tablet 03/30/20 24 Active vibegron (Gemtesa) 75 mg tablet Take 75 mg by mouth Active scopolamine 1 mg over 3 days patch 3 day APPLY WITH DISC BEHIND EAR REPLACE EVERY 3 DAYS 06/02/20 24 Active furosemide (LASIX) 20 mg tablet Take 1 tablet (20 mg total) by mouth daily 04/10/20 24 Active spironolactone (ALDACTONE) 25 mg tablet Take 1 tablet (25 mg total) by mouth daily Active aspirin 81 mg enteric coated tablet Take 1 tablet (81 mg total) by mouth daily Active rosuvastatin (CRESTOR) 40 mg tablet Take 1 tablet (40 mg total) by mouth daily Active pravastatin (PRAVACHOL) 10 mg tablet Take 1 tablet (10 mg total) by mouth daily Active pantoprazole DR (PROTONIX) 40 mg EC tablet Take 1 tablet (40 mg total) by mouth daily Active predniSONE (DELTASONE) 5 mg tablet Take 1 tablet (5 mg) by mouth daily Active Active Problems Problem Noted Date Diagnosed Date Primary osteoarthritis of left knee 06/22/2024 Assessment & Plan (10/05/2024 9:45 AM WINDSHIELD WIPER REPAIRER): The patient has advanced arthritis of the left knee with ligamentous instability. He was not responding to conservative measures we bracing and medication up to injectables. He wants to proceed with total knee replacement. His UTI was treated and he would like to proceed with surgery. He will be rescheduled when convenient for the patient. The risks of knee replacement surgery include infection, incisional numbness, keloid formation, neurovascular compromise, blood loss, blood clots, fracture dislocation, wherewith possible need for revision, medical and anesthetic risks including . The risks and benefits were explained the patient is wanting to proceed and we will schedule surgery when convenient for the patient. The patient should be taking iron supplements within two weeks of surgery preparation for perioperative blood loss Dysphagia 04/20/2024 Hemiparesis affecting left s maria as late effect of cerebrovascular accident (CVA) ([facility]) 03/21/2024 Arthritis of left knee 12/29/2023 Assessment & Plan (06/22/2024 3:40 PM CDT): The patient has advanced arthritis of the left knee with complete joint space obliteration medially. As a result of his uneven wear the patient has developed deficiency of the medial collateral ligament. His knee is interfering with his stroke rehabilitation. He would like to proceed with knee replacement surgery. He was advised having a recent stroke and having underlying peripheral vascular disease does increase the risk of perioperative wound healing issues as well as functioning of the implant and even potential . His recovery is likely to be more arduous with weaker muscles in the leg. The patient however feels adamant in proceeding with knee replacement surgery. His is present with him today. He will be enrolled in a total knee protocol. We will check preoperative labs to see if there is any potential wound healing issues that could be corrected prior to surgery. The risks of knee replacement surgery include infection, incisional numbness, keloid formation, neurovascular compromise, blood loss, blood clots, fracture dislocation, wherewith possible need for revision, medical and anesthetic risks including . The risks and benefits were explained the patient is wanting to proceed and we will schedule surgery when convenient for the patient. Moderate malnutrition 12/17/2023 Acute CVA (cerebrovascular accident) 12/07/2023 Infrarenal abdominal aortic aneurysm (AAA) witho ut rupture 11/12/2023 Lung nodule 10/13/2023 Assessment & Plan (01/24/2024 9:59 AM CDT): RLL nodule in a patient without clear risk factors for pulmonary malignancy Recs: 1) Repeat chest CT is scheduled for January 2025 Assessment & Plan (11/18/2023 2:34 PM WINDSHIELD WIPER REPAIRER): RLL nodule in a patient without clear risk factors for pulmonary malignancy Recs: 1) Repeat chest CT is scheduled for January 2024 Nocturnal cough 10/13/2023 Assessment & Plan (01/24/2024 9:59 AM CDT): Related to hiatal hernia, reflux leading to dysphagia Sx are better with diet and lifestyle modifications Reports worsened dyspnea of unclear etiology - lung examination is within normal limites - recent hemoglobin was ok - no recent cardiac evaluation - had pfts this am, results are pending Recs: 1) GI evaluation is pending - he has an appt soon 2) Continue current bronchodilators 3) Diet and lifestyle modifications for hiatal hernia 4) Stay as active as able 5) Stay uptodate with health maintenance/vaccinations Assessment & Plan (11/18/2023 2:34 PM WINDSHIELD WIPER REPAIRER): Related to hiatal hernia, reflux Sx are better with diet and lifestyle modifications Reports worsened dyspnea of unclear etiology - lung examination is within normal limites - recent hemoglobin was ok - no recent cardiac evaluation - had pfts this am, results are pending Recs: 1) Await pfts 2) Placed a call to PCP - consider cardiac evaluation for dyspnea 3) Continue current bronchodilators 4) Diet and lifestyle modifications for hiatal hernia 5) Stay as active as able 6) Stay uptodate with health maintenance/vaccinations Hiatal hernia 10/13/2023 Upper GI bleed 10/11/2023 Acquired hypothyroidism 10/11/2023 Acute blood loss anemia 10/11/2023 Coffee ground emesis 10/10/2023 Nontraumatic incomplete tear of right rotator cu ff 05/18/2023 Biceps tendinitis of left upper extremity 2022 Tear of left glenoid labrum 05/18/2023 Hx of total knee replacement, right 12/01/2022 Neuropathy 12/01/2022 Pain due to total right knee replacement 022 Hamstring tendinitis of right thigh 04/28/2022 Quadriceps weakness 04/28/2022 Edema 04/04/2020 Intermittent claudication 04/04/2020 Iron deficiency anemia 04/04/2020 Peripheral vascular disease 04/04/2020 Goiter 12/05/2019 Overview (12/05/2019): Added automatically from request for surgery [id number] Subchondral insufficiency fracture of condyle of left femur 08/30/2018 Closed fracture of left tibial plateau with jean yed healing 08/30/2018 Closed fracture of right tib ial plateau with delayed healing 08/30/2018 Closed nondisplaced osteocho ndral fracture of left patella with delayed healing 08/30/2018 Closed osteochondral fractur e of patella, right, with delayed healing, subsequent encounter 08/30/2018 Complex tear of medial menis cus of right knee as current injury 08/30/2018 Complex tear of medial menis cus of left knee as current injury 08/30/2018 Primary osteoarthritis of both knees 08/08/2018 Cataract of right eye 06/22/2018 Diplopia 03/08/2018 Esotropia 03/08/2018 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 Breast pain, right 02/01/2018 Skin lesion of breast 02/01/2018 Idiopathic peripheral neuropathy Abnormality of gait and mobility Encounters Date Type Department Care Team Description 10/09/2024 Telephone [facility] Gastroenterology [address] [facility] [address] [place] [address] Jenni Eddy, MARAH Unsuccessful Phone Call 1; GI Preprocedure 10/06/2024 12:10 PM WINDSHIELD WIPER REPAIRER Lab [address] [place] [address] Primary osteoarthritis of left knee 10/05/2024 9:00 AM WINDSHIELD WIPER REPAIRER Office Visit [facility] Orthopedics and Sports Medicine at [address] [place] [address] Grey Dykes MD Primary osteoarthritis of left knee (Primary Dx) 08/30/2024 Telephone [facility] at [facility] [address] [facility] [address] [place] [address] Laly Shi, MARAH PMC Intake Assessment 08/29/2024 9:00 AM WINDSHIELD WIPER REPAIRER Office Visit [facility] Orthopaedic Surgery [address] [facility] [address] [place] [phone] Judah Celaya MD Primary osteoarthritis of left knee (Primary Dx); Acute knee pain, unspecified laterality; Left knee pain, unspecified chronicity 08/29/2024 8:30 AM WINDSHIELD WIPER REPAIRER - 08/29/2024 11:59 PM WINDSHIELD WIPER REPAIRER Hospital En[place] [facility] [address] [facility] [address] [place] [phone] Left knee pain, unspecified chronicity; Acute knee pain, unspecified laterality Discharge Disposition: Discharge to home or self care 07/26/2024 Telephone [facility] Orthopedics and Sports Medicine at [address] [phone] Grey Dykes MD 07/24/2024 8:33 AM CDT - 07/24/2024 9:31 AM CDT Hospital Encounter [facility] Operating Room [address] [place] [id number] Grey Dykes MD Discharge Disposition: Discharge to home or self care 07/17/2024 Documentation [facility] Pre Anesthesia Testing [address] [place] [address] Madie Trujillo RN 07/17/2024 Orders Only [facility] Orthopedics and Sports Medicine at [address] [phone] Carol Aceves PA 07/14/2024 Documentation [facility] Pre Anesthesia Testing [address] [place] [address] Madie Trujillo, MARAH 07/12/2024 8:00 AM CDT Office Visit [facility] Stroke [address] [facility] [address] [place] [address] Gomez Reddy MD Cerebrovascular accident (CVA), unspecified mechanism ([facility]) 07/11/2024 10:45 AM CDT Pre-Admission Testing [facility] Pre Anesthesia Testing [address] [place] [address] Pre-op testing (Primary Dx); Arthritis of left knee; Hypoglycemia; Vitamin D deficiency from Last 3 Months Immunizations Name Administration Dates Next Due Influenza, Quadrivalent, Berenice l Culture-based MDCK, Preservative Free, Antibiotic Free, Intramuscular 07/11/2020 Influenza, Trivalent, High D ose, Split, Preservative Free, Intramuscular 12/30/2019 Pneumococcal Polysaccharide PPV23 07/11/2020 Surgical History Surgery Date Site/Laterality Comments HERNIA REPAIR 10/11/1979 - 10/10/1980 Hiatal Hernia repair CATARACT EXTRACTION, BILATERAL 10/11/2017 - 10/10/2018 Bilateral THYROIDECTOMY 12/27/2019 KNEE ARTHROSCOPY Bilateral Medical History Medical History Date Comments Gastroesophageal reflux disease GERD Osteoarthritis Osteoarthritis Peptic ulcer Peptic ulcer dis ease Acute gastric ulcer without hemorrhage or perforation Ulcer, gastric, acute - (Add ed by TW Conv) Visual disturbance hx of double vision, corrective lenses Seizures ([facility]) 1997 last seizure in 1997 Asthma Cataract SOB (shortness of breath) on exertion Subchondral insufficiency fr acture of condyle of left femur ([facility]) Closed fracture of left tibi al plateau with delayed healing Closed fracture of right tib ial plateau with delayed healing Closed nondisplaced osteocho ndral fracture of left patella with delayed healing Closed osteochondral fractur e of patella, right, with delayed healing, subsequent encounter Complex tear of medial menis cus of right knee as current injury Complex tear of medial menis cus of left knee as current injury Vertigo Alzheimer's dementia ([facility]) Diverticulitis of colon Incontinence of urine Hypothyroidism Fatigue Vision changes Easy bruisability Frequent urination Back pain Muscle weakness Cramps of lower extremity Clotting disorder (CMS/HCC) ([facility]) Hyperlipidemia Hypertension Enlarged prostate Stroke ([facility]) 12/09/2023 left leg works o k, cannot use left arm Family History Medical History Relation Name Comments Heart attack Father Heart attack Mother Heart failure Other 1 Family history of Congestive heart failure; Heart disease Other 2 Family history of Heart disease; Osteoarthritis Other 3 Family histor y of Osteoarthritis; Osteoporosis Other 4 Family history of Osteoporosis; Heart attack Sister Relation Name Status Comments Father Mother Other 1 Other 2 Other 3 Other 4 Sister Social History Tobacco Use Types Packs/Day Years [...] materials from doctor or pharmacy Sometimes 03/08/[address] [facility] Utilities Answer Date Recorded In the past 12 months has th e ANDalyze, gas, oil, or water Fi.tt threatened to shut off services in your [...] often do you attend chur ch or adventist services? More than 4 times per year 12/16/2023 Do you belong to any clubs o r organizations such as buddhism groups, unions, fraternal or athletic groups, or [...] Recorded Patient Health Questionnaire-2 Score 0 01/06/2024 [facility] - Occupational Stress [...] place to sleep or slept in a assisted (including now)? No 12/16/2023 Personal Safety Answer Date Recorded Have you ever been in or are you currently in a harmful physical or emotional relationship or is someone making you feel afraid or unsafe? Denies 12/15/2023 Sex and Gender Information Value Date Recorded Sex Assigned at Not on file Legal Sex Male 3:25 PM WINDSHIELD WIPER REPAIRER Gender Identity Not on file Sexual Orientation Not on file Obstetrics History Last Filed Vital Signs Vital Sign Reading Time Taken Comments Blood Pressure 134/78 07/12/2024 7:45 AM CDT Pulse 53 07/12/2024 7:45 AM CDT Temperature 36.6 ??C (97.9 ??F) 06/14/2024 9:46 AM CD T Respiratory Rate 18 06/14/2024 9:46 AM CDT Oxygen Saturation 97% 06/14/2024 9:46 AM CDT Inhaled Oxygen Concentration - - Weight 85.3 kg (188 lb) 10/05/2024 9:24 AM WINDSHIELD WIPER REPAIRER Height 177.8 cm (5' 10 ) 10/05/2024 9:24 AM WINDSHIELD WIPER REPAIRER Body Mass Index 26.98 10/05/2024 9:24 AM WINDSHIELD WIPER REPAIRER Plan of Treatment Upcoming Encounters Date Type Department Care Team (Latest Contact Info) Description 10/23/2024 10:00 AM WINDSHIELD WIPER REPAIRER Hospital Encounter [facility] Operating Room [address] [place] [phone] [place] [phone] [address] 10/23/2024 10:00 AM WINDSHIELD WIPER REPAIRER - 10/23/2024 1:00 PM WINDSHIELD WIPER REPAIRER Surgery [facility] Operating Room [address] [place] [address] [place] [id number] [id number] ARTHROPLASTY TOTAL KNEE LEFT Scheduled Procedures Name Priority Associated Diagnoses Date/Ti me ARTHROPLASTY TOTAL KNEE left knee osteoarthritis 10/23/2024 10:00 AM WINDSHIELD WIPER REPAIRER ESOPHAGOGASTRODUODENOSCOPY Dysphagia, unspecified type Health Maintenance Due Date Last Done Comments DTaP/Tdap/Td Vaccine (1 - Tdap) 1955 Hepatitis B Screening 1962 Zoster Vaccine (1 of 2) 1994 Well Visit 65+ 2009 Pneumococcal vaccine 65+ (2 of 2 - PCV) 07/11/2021 07/11/2020 Covid-19 Vaccine (3 - 2023-2 5 season) 2024 12/12/2020, 11/14/2020 Influenza Vaccine (#1) 2024 07/11/2020, 2019 Depression Screening 12/13/2024 12/14/2023, 12/14/2023, 12/07/2023, Additional history exists Fall Risk Assessment 06/14/2025 06/14/2024, 12/03/2022, 11/05/2022 Abdominal Aortic Aneurysm (A AA) Screen Completed 11/12/2023, 11/12/2023, 10/11/2023 Medical Devices Implanted Type Area Energy Professional Device Identifier Shelf Expiration Date Model / Serial / Lot [employer] 201.050 Nif - [id number] Implanted:Qty: 1 on 09/22/2018 by George Sepulveda MD at [facility] al: Knee [employer] 04/09/2020 201.050 / / [id number] Subchondroplasty Knee Kit Implanted:Qty: 1 on 09/22/2018 by George Sepulveda MD at [facility] al: Knee [employer] 11/10/2020 402.203(201.0 50) / [id number] / [id number] Description:KIT CONTAINS IMP LANT: ACCUFILL, 5ML, REF# 201.050, LOT # [id number], EX: 11-10-2020 System Accumix Bone Cement - [id number] Implanted:Qty: 1 on 09/22/2018 by George Sepulveda MD at [facility] [employer] 03/28/2021 311.100 / / [id number] [employer] [id number] Palacos R+G High Viscosity Cement Bone Gentamicin Arthroplasty - [id number] Implanted:Qty: 1 on 11/24/2021 by George Sepulveda MD at [facility] Right: Knee [employer] 05/10/2024 [id number] / / [id number] [employer] [id number] Persona Cruciate Retain Knee Right 11 Narrow Component Femoral - [id number] Implanted:Qty: 1 on 11/24/2021 by George Sepulveda MD at [facility] Right: Knee [employer] 07/13/2030 [id number] / / [id number] [employer] [id number] Persona 35mm Knee Component Patellar All Poly Latex Free - [id number] Implanted:Qty: 1 on 11/24/2021 by George Sepulveda MD at [facility] Right: Knee [employer] 03/25/2029 [id number] / / [id number] [employer] [id number] Persona 14mm 30+ Mm Knee Tibia Taper Extension Stem - [id number] Implanted:Qty: 1 on 11/24/2021 by George Sepulveda MD at [facility] Right: Knee [employer] 07/27/2031 [id number] / / [id number] [employer] [id number] Persona Natural Tibia Stem Knee Right 5d G Baseplate Tibial - [id number] Implanted:Qty: 1 on 11/24/2021 by George Sepulveda MD at [facility] Right: Knee [employer] 05/13/2031 [id number] / / [id number] [employer] [id number] Persona 10mm Knee Insert Articular Vivacit-E Sterile - [id number] Implanted:Qty: 1 on 11/24/2021 by George Sepulveda MD at [facility] Right: Knee [employer] 05/06/2026 [id number] / / [id number] Procedures Procedure Name Priority Date/Time Associated Diagnosis Comments URINALYSIS, MICROSCOPIC ONLY Routine 10/06/2024 12:12 PM WINDSHIELD WIPER REPAIRER Primary osteoarthritis of left knee PROTEIN, TOTAL Routine 10/06/2024 12:12 PM WINDSHIELD WIPER REPAIRER Primary osteoarthritis of left knee URINALYSIS AND REFLEX TO MICROSCOPIC AND CULTURE Routine 10/06/2024 12:12 PM WINDSHIELD WIPER REPAIRER Primary osteoarthritis of left knee XR PELVIS 1 OR 2 VIEWS Schedule Routine, Read Routine (OP Routine) 08/29/2024 9:28 AM WINDSHIELD WIPER REPAIRER Acute knee pain, unspecified laterality XR KNEE LEFT 4 OR MORE VIEWS Schedule Routine, Read Routine (OP Routine) 08/29/2024 9:28 AM WINDSHIELD WIPER REPAIRER Left knee pain, unspecified chronicity URINALYSIS, MICROSCOPIC ONLY Routine 07/11/2024 11:07 AM CDT Pre-op testing EGFR Routine 07/11/2024 11:07 AM CDT Pre-op testing ALBUMIN Routine 07/11/2024 11:07 AM CDT Arthritis of left knee Hypoglycemia Vitamin D deficiency HEMOGLOBIN A1C Routine 07/11/2024 11:07 AM CDT Arthritis of left knee Hypoglycemia Vitamin D deficiency PROTEIN, TOTAL Routine 07/11/2024 11:07 AM CDT Arthritis of left knee Hypoglycemia Vitamin D deficiency VITAMIN D 25 HYDROXY Routine 07/11/2024 11:07 AM CDT Arthritis of left knee Hypoglycemia Vitamin D deficiency BASIC METABOLIC PANEL Routine 07/11/2024 11:07 AM CDT Pre-op testing TYPE AND SCREEN Routine 07/11/2024 11:07 AM CDT Pre-op testing URINE CULTURE Routine 07/11/2024 11:07 AM CDT URINALYSIS AND REFLEX TO MICROSCOPIC AND CULTURE Routine 07/11/2024 11:07 AM CDT Pre-op testing CT CHEST ABDOMEN PELVIS W CONTRAST ED Urgent/IP Urgent 10/11/2023 10:12 AM WINDSHIELD WIPER REPAIRER from Last 3 Months or Most Recently Relevant to Health Maintenance Results * (ABNORMAL) Urinalysis reflex to microscopic and culture Urine, clean voided (10/06/2024 12:12 PM WINDSHIELD WIPER REPAIRER) Color, ur Yellow Yellow Clarity, ur Clear Clear CERNER Specific gravity, ur 1.030 1.003 - 1.030 CERNER pH, urine 6.0 CERNER Comment: Interpretive Data ? Urine pH is affected by diet, medications, systemic acid-base disturbances, and renal tubular function. ??pH may affect urinary stone formation. ??For example, urine pH below 6.0 may help reduce the tendency for calcium phosphate stones and pH greater than 6.0 may reduce the tendency for uric acid stone formation. Source: [facility] Current Interpretive Data was last revised on 2017 Protein, ur ql 1+(A) Negative CERNER CH Glucose, ur ql Negative Negative CERNER CH Ketones, ur Negative Negative CERNER CH Bilirubin, ur Negative Negative CERNER CH Blood, ur Negative Negative CERNER CH Urobilinogen, ur 2.0(A) <2.0 mg/dL CERNER CH Nitrite, ur Negative Negative CERNER CH Leukocyte esterase, ur Negative Negative CERNER CH UA reflex comment Reflex to microscopic UA will be performed. CERNER Urine, clean voided 10/06/2024 12:12 PM WINDSHIELD WIPER REPAIRER 10/06/2024 8:10 PM WINDSHIELD WIPER REPAIRER Grey Dykes MD LAB MICROBIOLOGY - GENERAL ORDERABLES Final Result Performing Organization Address [facility] de Phone Number [facility] [address] [employer] [address] * (ABNORMAL) Urinalysis, microscopic only (10/06/2024 12:12 PM WINDSHIELD WIPER REPAIRER) WBC, ur 0-5 0 - 5 /HPF RBC, ur 3-5(A) 0 - 2 /HPF CERNER Mucous, ur Present(A) CERNER CH Calcium oxalate crystals, ur Trace(A) CERNER CH Culture Reflex Comment Reflex conditions for urine culture (WBC >10) not met. [facility] Urine, clean voided 10/06/2024 12:12 PM WINDSHIELD WIPER REPAIRER 10/06/2024 8:12 PM WINDSHIELD WIPER REPAIRER us Grey Dykes MD LAB URINE ORDERABLES Final Result Performing Organization Address [facility] Co de Phone Number [facility] [address] [facility] [employer] [place] [address] * (ABNORMAL) Protein, total (10/06/2024 12:12 PM WINDSHIELD WIPER REPAIRER) Protein, pl 6.4(L) 6.5 - 8.5 g/dL Blood 10/06/2024 12:1 2 PM WINDSHIELD WIPER REPAIRER 10/06/2024 8:10 PM WINDSHIELD WIPER REPAIRER us Grey Dykes MD LAB B[place] [address] [address] [place] [address] * XR Pelvis 1 or 2 Views (08/29/2024 9:28 AM WINDSHIELD WIPER REPAIRER) Anatomical Region Laterality Modality Body, Pelvis N/A Computed Radiogr aphy 08/29/2024 11:0 7 AM WINDSHIELD WIPER REPAIRER Impressions 08/29/2024 11:10 AM WINDSHIELD WIPER REPAIRER 1. 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 2. ??Mild bilateral hip osteoarthritis. Dictated by: Ap Mcgregor M.D. The radiology attending physician has personally reviewed this study, and had reviewed and/or edited this written report and agrees with it. Electronically signed by: Errol Parnell M.D. Narrative 08/29/2024 11:10 AM WINDSHIELD WIPER REPAIRER EXAMINATION: XR KNEE LEFT 4 OR MORE [...] 4 or More Views (08/29/2024 9:28 AM WINDSHIELD WIPER REPAIRER) Anatomical Region Laterality Modality Lower Extremities, Knee Left Computed Radiography 08/29/2024 11:0 7 AM WINDSHIELD WIPER REPAIRER Impressions 08/29/2024 11:10 AM WINDSHIELD WIPER REPAIRER 1. 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 2. ??Mild bilateral hip osteoarthritis. Dictated by: Ap Mcgregor M.D. The radiology attending physician has personally reviewed this study, and had reviewed and/or edited this written report and agrees with it. Electronically signed by: Errol Parnell M.D. Narrative 08/29/2024 11:10 AM WINDSHIELD WIPER REPAIRER EXAMINATION: XR KNEE LEFT 4 OR MORE [...] MD IMG XR PROCEDURES Final Result * eGFR (07/11/2024 11:07 AM CDT) eGFR 69 >=60 mL/min/1. 73 m2 Comment: Interpretive Data Reference Interval Normal ?>/= 90 mL/min/1.73m2 Mildly decreased* ? 60 - 89 mL/min/1.73m2 Mildly to moderately decreased ?45 - 59 mL/min/1.73m2 Moderately to severely decreased ??30 - 44 mL/min/1.73m2 Severely decreased ?15 - 29 mL/min/1.73m2 Kidney Failure ?< 15 ??mL/min/1.73m2 *Relative to young adult level Estimated glomerular filtration rate is determined by the 2020 CKD-EPI equation recommended by the National Kidney Foundation (A Unifying Approach to GFR Estimation: Recommendations of the NKF-ASK Task Force on Reassessing the Inclusion of Race in Diagnosing Kidney Disease, JASN 2020). The CKD-EPI equation should not be used for patients with unstable renal function and has not been validated in children and those over 70. Current interpretive data was last reviewed 2021. Blood 07/11/2024 11:0 7 AM CDT 07/11/2024 12:06 PM CDT Kavitha Ramirez NP LAB BLOOD ORDERABLES Final Res ult CERNER [id number] [place] [address] * (ABNORMAL) Urinalysis reflex to microscopic and culture Urine, clean voided (07/11/2024 11:07 AM CDT) Color, ur Yellow Yellow Clarity, ur Clear Clear CERNER CH Specific gravity, ur 1.025 1.003 - 1.030 CERNER CH pH, urine 6.0 CERNER CH Comment: Interpretive Data ? Urine pH is affected by diet, medications, systemic acid-base disturbances, and renal tubular function. ??pH may affect urinary stone formation. ??For example, urine pH below 6.0 may help reduce the tendency for calcium phosphate stones and pH greater than 6.0 may reduce the tendency for uric acid stone formation. Source: [facility] [employer] Current Interpretive Data was last revised on 2017 Protein, ur ql Negative Negative CERNER CH Glucose, ur ql Negative Negative CERNER CH Ketones, ur Negative Negative CERNER CH Bilirubin, ur Negative Negative CERNER CH Blood, ur Negative Negative CERNER CH Urobilinogen, ur <2.0 <2.0 mg/dL CERNER CH Nitrite, ur Negative Negative CERNER CH Leukocyte esterase, ur 2+(A) Negative CERNER CH UA reflex comment Reflex to microscopic UA will be performed. [facility]ER CH Urine, clean voided 07/11/2024 11:07 AM CDT 07/12/2024 1:49 PM CDT Kavitha Ramirez NP LAB MICROBIOLOGY - GENERAL ORD ERABLES Final Result Performing Organization Address City/[facility]/ZIP Co de Phone Number [facility] [address] Department [place] [employer] [place] [address] * Vitamin D 25 hydroxy (07/11/2024 11:07 AM CDT) Vitamin D 25-OH 56 30 - 80 ng/mL Blood 07/11/2024 11:0 7 AM CDT 07/11/2024 12:07 PM CDT us Grey Dykes MD LAB BLOOD ORDERABLES Final Result Performing Organization Address [facility] Co de Phone Number [facility] [address] [place] [place] [address] * (ABNORMAL) Urinalysis, microscopic only (07/11/2024 11:07 AM CDT) WBC, ur 21-50(A) 0 - 5 /HPF RBC, ur 3-5(A) 0 - 2 /HPF CERNER CH Epithelial cells, squamous, ur 1-5 0 - 5 /HPF CERNER CH Mucous, ur Present(A) CERNER CH Calcium oxalate crystals, ur 3+(A) CERNER CH Hyaline casts, ur 1-5 0 - 10 /LPF CERNER CH Culture Reflex Comment Reflex to urine culture will be performed. CERNER CH Urine, clean voided 07/11/2024 11:07 AM CDT 07/12/2024 1:49 PM CDT us Kavitha Ramirez NP LAB URINE ORDERABLES Final Res ult Performing Organization Address [facility] Co de Phone Number [facility] [id number] [employer] [place], [place] [id number] * Type and screen (07/11/2024 11:07 AM CDT) Sarah, indirect Negative ABO Rh O Negative CERNER CH Blood 07/11/2024 11:0 7 AM CDT 07/11/2024 12:06 PM CDT Narrative MARVIN - 07/11/2024 12:49 PM CDT Is this test being ordered in advance for a procedure?->Yes Expected date of procedure:->07/24/24 Has the patient been transfused in the past 3 months?->Unknown Kavitha Ramirez NP LAB BLOOD BANK TEST ORDERABLES Final Result Performing Organization Address City/[facility]/ZIP Co de Phone Number [facility] [address] [address] [place] [address] * Urine culture Urine, clean voided (07/11/2024 11:07 AM CDT) Report Final Report: Less than 100,000 colonies/mL (clinically insignificant growth based on current clinical standards) Comment:Testing performed by : [facility], [address] [place]., [address] Organism (CLINICALLY INSIGNIFICANT GROWTH [facility] Urine, clean voided 07/11/2024 11:07 AM CDT 07/12/2024 6:55 PM CDT Narrative MARVIN - 07/14/2024 9:46 AM CDT Urine culture reflexed based upon urinalysis results. Testing performed by [facility] ([phone]) Kavitha Ramirez NP LAB MICROBIOLOGY - GENERAL ORD ERABLES Final Result Performing Organization Address City/[facility]/ZIP Co de Phone Number [facility] [place] [address] [place] [place] [address] * Protein, total (07/11/2024 11:07 AM CDT) Protein, pl 6.7 6.5 - 8.5 g/dL Blood 07/11/2024 11:0 7 AM CDT 07/11/2024 12:07 PM CDT Grey Dykes MD LAB BLOOD ORDERABLES Final Result Performing Organization Address City/[facility]/ZIP Co de Phone Number [facility] [place] [address] [place] [address] * (ABNORMAL) Hemoglobin A1c (07/11/2024 11:07 AM CDT) Hgb A1C 6.1(H) 4.0 - 5.6 % Estimated Average Glucose 128 mg/dL [facility] Comment: The ADA recommends reporting an estimated Average Glucose (eAG) with all Hemoglobin A1c results using the equation derived from a study of 507 normal and diabetic adults. ??Minority populations were underrepresented and children were not included. ?? (Diabetes Care 31:3178-8477, 2008). ??The eAG is not equivalent to a fasting glucose. Blood 07/11/2024 11:0 7 AM CDT 07/11/2024 12:06 PM CDT Grey Dykes MD LAB BLOOD ORDERABLES Final Result Performing Organization Address [facility] Co de Phone Number [facility] [address] [place] [address] * Albumin (07/11/2024 11:07 AM CDT) Pathologist [facility] Albumin 3.6 3.5 - 5.0 g/dL Blood 07/11/2024 11:0 7 AM CDT 07/11/2024 12:07 PM CDT Grey Dykes MD LAB BLOOD ORDERABLES Final Result Performing Organization Address [facility] Co de Phone Number [facility] [address] [place] [address] * Basic metabolic panel (07/11/2024 11:07 AM CDT) Pathologist [facility] Sodium 141 135 - 145 mmol/L Potassium, pl 3.7 3.3 - 4.9 mmol/L [facility] Chloride 106 97 - 110 mmol/L [facility] CO2 22 22 - 32 mmol/L [facility] Anion gap 13 2 - 15 mmol/L [facility] BUN 9 6 - 25 mg/dL [facility] Creatinine 1.09 0.80 - 1.30 mg/dL [facility] Glucose 140 70 - 199 mg/dL [facility] Comment: Interpretive Data Fasting glucose >/= 126 mg/dl is diagnostic for diabetes. ?? Fasting is defined as no caloric intake for at least 8 hours. Fasting glucose between 100 mg/dl to 125 mg/dl is diagnostic of prediabetes. In a patient with classic symptoms of hyperglycemia or hyperglycemic crisis, a random glucose >/= 200 mg/dl is diagnostic for diabetes. In the absence of unequivocal hyperglycemia, results should be confirmed by repeat testing. The classification and Diagnosis of Diabetes Diabetes Care 2021; 46: S19-S40. Current interpretive data was last revised 2022. Calcium 9.6 8.5 - 10.3 mg/dL [facility] Blood 07/11/2024 11:0 7 AM CDT 07/11/2024 12:06 PM CDT us Kavitha Ramirez GEOSPATIAL EXTRACTOR ANALYSIS LAB BLOOD ORDERABLES Final Res ult [facility] [address] Department [place] [address] * CT Chest Abdomen Pelvis W Contrast (10/11/2023 10:12 AM WINDSHIELD WIPER REPAIRER) Anatomical Region Laterality Modality Body N/A Computed Tomogra phy 10/11/2023 11:0 3 AM WINDSHIELD WIPER REPAIRER Impressions 10/11/2023 11:03 AM WINDSHIELD WIPER REPAIRER A 12 x 12 mm pulmonary nodule in the lateral aspect of the right costophrenic sulcus, new since 2019, is suspicious for primary lung malignancy. Electronically signed by: Jayshree Giles MD, Ph.D Narrative 10/11/2023 11:03 AM WINDSHIELD WIPER REPAIRER EXAMINATION: ??Computed tomography of chest/abdomen/pelvis with intravenous contrast HISTORY: Hematemesis TECHNIQUE: ??Transaxial computed tomographic images of the chest/abdomen/pelvis ??were obtained with intravenous contrast according to the standard protocol after the uneventful administration of 75 mL Opti-Ray 350 intravenous contrast. COMPARISON: 10/10/2023 FINDINGS: ?? CHEST Heart: Heart size is normal. ??No pericardial effusion. Vasculature: Thoracic aorta is of normal course and caliber. ??No central pulmonary embolism. Lymph nodes: No thoracic lymphadenopathy. Esophagus: Fluid-filled mid to distal esophagus Lungs: 12 x 12 mm pulmonary nodule in the lateral aspect of the right costophrenic sulcus, new since 2019. ??Essentially unchanged benign left apical nodularity compared to prior study in 2019. ??Bones: No suspicious osseous lesion. ABDOMEN/PELVIS Liver: Liver is normal, containing a simple cyst in segment IVb.. No biliary ductal dilatation. Portal vein is patent. Hepatic veins are patent. Gallbladder: Vicarious excretion of the contrast material in the gallbladder. Pancreas: Normal. Spleen: Normal. Adrenals: Normal. Kidneys: No hydronephrosis. Bilateral renal cysts Bladder: Normal. Reproductive organs: Normal. Bowel: No bowel obstruction. No free intra-abdominal air or fluid. Vasculature: Abdominal aorta is of normal caliber. Celiac and superior mesenteric artery are patent. Inferior vena cava is patent. Superior mesenteric vein and splenic vein are patent. Lymph nodes: No lymphadenopathy. Bones: No suspicious osseous lesion. Procedure Note Jayshree Preston MD PhD - 10/11/2023 EXAMINATION: Computed tomography of chest/abdomen/pelvis with intravenous contrast HISTORY: Hematemesis TECHNIQUE: Transaxial computed tomographic images of the chest/abdomen/pelvis were obtained with intravenous contrast according to the standard protocol after the uneventful administration of 75 mL Opti-Ray 350 intravenous contrast. COMPARISON: 10/10/2023 FINDINGS: CHEST Heart: Heart size is normal. No pericardial effusion. Vasculature: Thoracic aorta is of normal course and caliber. No central pulmonary embolism. Lymph nodes: No thoracic lymphadenopathy. Esophagus: Fluid-filled mid to distal esophagus Lungs: 12 x 12 mm pulmonary nodule in the lateral aspect of the right costophrenic sulcus, new since 2019. Essentially unchanged benign left apical nodularity compared to prior study in 2019. Bones: No suspicious osseous lesion. ABDOMEN/PELVIS Liver: Liver is normal, containing a simple cyst in segment IVb.. No biliary ductal dilatation. Portal vein is patent. Hepatic veins are patent. Gallbladder: Vicarious excretion of the contrast material in the gallbladder. Pancreas: Normal. Spleen: Normal. Adrenals: Normal. Kidneys: No hydronephrosis. Bilateral renal cysts Bladder: Normal. Reproductive organs: Normal. Bowel: No bowel obstruction. No free intra-abdominal air or fluid. Vasculature: Abdominal aorta is of normal caliber. Celiac and superior mesenteric artery are patent. Inferior vena cava is patent. Superior mesenteric vein and splenic vein are patent. Lymph nodes: No lymphadenopathy. Bones: No suspicious osseous lesion. IMPRESSION: A 12 x 12 mm pulmonary nodule in the lateral aspect of the right costophrenic sulcus, new since 2019, is suspicious for primary lung malignancy. 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 * Full Code (Latest Code Status on File) Date Activated Date Inactivated Comments 12/15/2023 3:27 PM 01/07/2024 2:32 PM * Full Code Date Activated Date Inactivated Comments 12/07/2023 1:48 PM 12/15/2023 2:16 PM * Full Code Date Activated Date Inactivated Comments 10/10/2023 9:25 PM 10/13/2023 7:23 PM * Full Code Date Activated Date Inactivated Comments 11/24/2021 11:50 AM 11/26/2021 7:58 PM * Full Code Date Activated Date Inactivated Comments 12/28/2019 5:17 PM 12/30/2019 5:42 PM Care Teams Software Configuration Manager Relationship Specialty Start Date End Date Wolfgang Serrano MD [address] [place] [id number] PCP - General Family Medicine 08/03/24 Wolfgang Serrano MD [address] [place] [address] Family Medicine 08/03/24 Unknown, Notinfile 03/12/22 [place] [address] [address] 03/12/22 Chuy Enriquez MD [address] [place] [address] Consulting Physician Pulmonary Disease 10/13/23 Luis Felipe Cedillo MD [address] [place] [address] Consulting Physician Gastroenterology 10/13/23 Marlene Thornton MD [address] [place] [address] Surgeon Vascular Surgery 11/10/23
--- OUTSIDE RECORDS SUMMARY | 2024-10-11 01:51 | XMS_ITS | Referral Summary ---
Author Organization [facility] Address [address] [place] [address] Care Team Providers Care Wilderness Guide Name Role Phone Wolfgang Serrano MD Primary Care Provider [phone] Wolfgang Serrano MD Unavailable [phone] Unknown, Notinfile Unavailable Unavailable Satnino Funk MD Unavailable Chuy Enriquez MD Unavailable Luis Felipe Cedillo MD Unavailable [phone] Marlene Thornton MD Unavailable Encounters Date Type Department Care Team Description 10/09/2024 Telephone [facility] Gastroenterology [address] [facility] [address] [place] [address] Jenni Eddy, MARAH Unsuccessful Phone Call 1; GI Preprocedure 10/06/2024 12:10 PM DRUG DISCOVERY INFORMATICS SPECIALIST Lab [address] [place] [address] Primary osteoarthritis of left knee 10/05/2024 9:00 AM DRUG DISCOVERY INFORMATICS SPECIALIST Office Visit [facility] Orthopedics and Sports Medicine at [address] [place] [address] Grey Dykes MD Primary osteoarthritis of left knee (Primary Dx) 08/30/2024 Telephone Pain Management Center at [facility] [address] [facility] [address], [address] [place] [phone] Laly Shi RN [facility] Intake Assessment 08/29/2024 8:30 AM DRUG DISCOVERY INFORMATICS SPECIALIST - 08/29/2024 11:59 PM DRUG DISCOVERY INFORMATICS SPECIALIST Hospital [place] [facility] [place] [address] [facility] [address] [place] [address] Left knee pain, unspecified chronicity; Acute knee pain, unspecified laterality Discharge Disposition: Discharge to home or self care 08/29/2024 9:00 AM DRUG DISCOVERY INFORMATICS SPECIALIST Office Visit [facility] Orthopaedic Surgery [address] [facility] [address] [place] [phone] Judah Celaya MD Primary osteoarthritis of left knee (Primary Dx); Acute knee pain, unspecified laterality; Left knee pain, unspecified chronicity 07/26/2024 Telephone [facility] Orthopedics and Sports Medicine at [address] [phone] Grey Dykes MD 07/24/2024 8:33 AM CDT - 07/24/2024 9:31 AM CDT Hospital Encounter [facility] Operating Room [address] [place] [address] Grey Dykes MD Discharge Disposition: Discharge to home or self care 07/17/2024 Documentation [facility] Pre Anesthesia Testing [address] [place] [address] Madie Trujillo RN 07/17/2024 Orders Only [facility] Orthopedics and Sports Medicine at [address] [phone] Carol Aceves PA 07/14/2024 Documentation [facility] Pre Anesthesia Testing [address] [place] [address] Madie Trujillo RN 07/12/2024 8:00 AM CDT Office Visit [facility] Stroke [address] [facility] [address] [place] [address] Gomez Reddy MD Cerebrovascular accident (CVA), unspecified mechanism (HCC) 07/11/2024 10:45 AM CDT Pre-Admission Testing [facility] Pre Anesthesia Testing [address] [place] [address] Pre-op testing (Primary Dx); Arthritis of left knee; Hypoglycemia; Vitamin D deficiency from Last 3 Months Allergies No known active allergies Medications cholecalciferol [...] 06/22/2024 Assessment & Plan (10/05/2024 9:45 AM DRUG DISCOVERY INFORMATICS SPECIALIST): The patient has advanced arthritis of the [...] late effect of cerebrovascular accident (CVA) ([facility]) 03/21/2024 Arthritis of left knee 12/29/2023 Assessment [...] 2025 Assessment & Plan (11/18/2023 2:34 PM DRUG DISCOVERY INFORMATICS SPECIALIST): RLL nodule in a patient without clear [...] maintenance/vaccinations Assessment & Plan (11/18/2023 2:34 PM DRUG DISCOVERY INFORMATICS SPECIALIST): Related to hiatal hernia, reflux Sx are [...] (12/05/2019): Added automatically from request for surgery [id number] Subchondral insufficiency fracture of condyle of left [...] peripheral neuropathy Abnormality of gait and mobility Immunizations Name Administration Dates Next Due Influenza, Quadrivalent, Berenice l Culture-based MDCK, Preservative Free, Antibiotic Free, Intramuscular 07/11/2020 Influenza, Trivalent, High D ose, Split, Preservative Free, Intramuscular 12/30/2019 Pneumococcal Polysaccharide PPV23 07/11/2020 Social History Tobacco Use Types Packs/Day Years [...] materials from doctor or pharmacy Sometimes 03/08/2024 [facility] Utilities Answer Date Recorded In the past 12 months has e [employer], [employer], oil, or water [employer] threatened to shut off services in your [...] week 12/16/2023 How often do you attend [facility] or orthodoxy services? More than 4 times per year 12/16/2023 Do you belong to any clubs o r organizations such as mandaeism groups, unions, fraternal or athletic groups, or [...] Recorded Patient Health Questionnaire-2 Score 0 01/06/2024 [facility] - Occupational Stress Questionnaire Answer Date Recorded [...] place to sleep or slept in a chcf (including now)? No 12/16/2023 Personal Safety Answer Date Recorded Have you ever been in or are you currently in a harmful physical or emotional relationship or is someone making you feel afraid or unsafe? Denies 12/15/2023 Sex and Gender Information Value Date Recorded Sex Assigned at Not on file Legal Sex Male 3:25 PM DRUG DISCOVERY INFORMATICS SPECIALIST Gender Identity Not on file Sexual Orientation Not on file Last Filed Vital Signs Vital Sign Reading Time Taken Comments Blood Pressure 134/78 07/12/2024 7:45 AM CDT Pulse 53 07/12/2024 7:45 AM CDT Temperature 36.6 ??C (97.9 ??F) 06/14/2024 9:46 AM CD T Respiratory Rate 18 06/14/2024 9:46 AM CDT Oxygen Saturation 97% 06/14/2024 9:46 AM CDT Inhaled Oxygen Concentration - - Weight 85.3 kg (188 lb) 10/05/2024 9:24 AM DRUG DISCOVERY INFORMATICS SPECIALIST Height 177.8 cm (5' 10 ) 10/05/2024 9:24 AM DRUG DISCOVERY INFORMATICS SPECIALIST Body Mass Index 26.98 10/05/2024 9:24 AM DRUG DISCOVERY INFORMATICS SPECIALIST Plan of Treatment Upcoming Encounters Date Type Department Care Team (Latest Contact Info) Description 10/23/2024 10:00 AM DRUG DISCOVERY INFORMATICS SPECIALIST Hospital Encounter [facility] Operating Room [address] [place] [address] [place] [address] [address] 10/23/2024 10:00 AM DRUG DISCOVERY INFORMATICS SPECIALIST - 10/23/2024 1:00 PM DRUG DISCOVERY INFORMATICS SPECIALIST Surgery [facility] Operating Room [address] [place] [address] [place] [address] [address] ARTHROPLASTY TOTAL KNEE LEFT Scheduled Procedures Name Priority Associated Diagnoses Date/Ti me ARTHROPLASTY TOTAL KNEE left knee osteoarthritis 10/23/2024 10:00 AM DRUG DISCOVERY INFORMATICS SPECIALIST ESOPHAGOGASTRODUODENOSCOPY Dysphagia, unspecified type Medical Devices Implanted Type Area Alligator Trapper Device Identifier Shelf Expiration Date Model / Serial / Lot [employer] 201.050 Nif - [id number] Implanted:Qty: 1 on 09/22/2018 by George Sepulveda MD at [facility] al: Knee [employer] 04/09/2020 201.050 / / [id number] Subchondroplasty Knee Kit Implanted:Qty: 1 on 09/22/2018 by George Sepulveda MD at [facility] al: Knee [employer] 11/10/2020 402.203(201.0 50) / [id number] / [id number] Description:KIT CONTAINS IMP LANT: ACCUFILL, 5ML, REF# 201.050, LOT # [id number], EX: 11-10-2020 System Accumix Bone Cement - [id number] Implanted:Qty: 1 on 09/22/2018 by George Sepulveda MD at [facility] [employer] 03/28/2021 311.100 / / [id number] [employer] [id number] Palacos R+G High Viscosity Cement Bone Gentamicin Arthroplasty - [id number] Implanted:Qty: 1 on 11/24/2021 by George Sepulveda MD at [facility] Right: Knee [employer] 05/10/2024 [id number] / / [id number] [employer] [id number] Persona Cruciate Retain Knee Right 11 Narrow Component Femoral - [id number] Implanted:Qty: 1 on 11/24/2021 by George Sepulveda MD at [facility] Right: Knee [employer] 07/13/2030 [id number] / / [id number] [employer] [id number] Persona 35mm Knee Component Patellar All Poly Latex Free - [id number] Implanted:Qty: 1 on 11/24/2021 by George Sepulveda MD at [facility] Right: Knee [employer] 03/25/2029 [id number] / / [id number] [employer] [id number] Persona 14mm 30+ Mm Knee Tibia Taper Extension Stem - [id number] Implanted:Qty: 1 on 11/24/2021 by George Sepulveda MD at [facility] Right: Knee [employer] 07/27/2031 [id number] / / [id number] [employer] [id number] Persona Natural Tibia Stem Knee Right 5d G Baseplate Tibial - [id number] Implanted:Qty: 1 on 11/24/2021 by George Sepulveda MD at [facility] Right: Knee [employer] 05/13/2031 [id number] / / [id number] [employer] [id number] Persona 10mm Knee Insert Articular Vivacit-E Sterile - [id number] Implanted:Qty: 1 on 11/24/2021 by George Sepulveda MD at [facility] Right: Knee [employer] 05/06/2026 [id number] / / [id number] Procedures Procedure Name Priority Date/Time Associated Diagnosis Comments URINALYSIS, MICROSCOPIC ONLY Routine 10/06/2024 12:12 PM DRUG DISCOVERY INFORMATICS SPECIALIST Primary osteoarthritis of left knee PROTEIN, TOTAL Routine 10/06/2024 12:12 PM DRUG DISCOVERY INFORMATICS SPECIALIST Primary osteoarthritis of left knee URINALYSIS AND REFLEX TO MICROSCOPIC AND CULTURE Routine 10/06/2024 12:12 PM DRUG DISCOVERY INFORMATICS SPECIALIST Primary osteoarthritis of left knee XR PELVIS 1 OR 2 VIEWS Schedule Routine, Read Routine (OP Routine) 08/29/2024 9:28 AM DRUG DISCOVERY INFORMATICS SPECIALIST Acute knee pain, unspecified laterality XR KNEE LEFT 4 OR MORE VIEWS Schedule Routine, Read Routine (OP Routine) 08/29/2024 9:28 AM DRUG DISCOVERY INFORMATICS SPECIALIST Left knee pain, unspecified chronicity URINALYSIS, MICROSCOPIC [...] CONTRAST ED Urgent/IP Urgent 10/11/2023 10:12 AM DRUG DISCOVERY INFORMATICS SPECIALIST from Last 3 Months or Most Recently Relevant to Health Maintenance Results * (ABNORMAL) Urinalysis reflex to microscopic and culture Urine, clean voided (10/06/2024 12:12 PM DRUG DISCOVERY INFORMATICS SPECIALIST) Color, ur Yellow Yellow Clarity, ur Clear Clear CERNER CH Specific gravity, ur 1.030 1.003 - 1.030 CERNER CH pH, urine [...] tendency for uric acid stone formation. Source: My Point...Exactly Current Interpretive Data was last revised on [...] CERNER Urine, clean voided 10/06/2024 12:12 PM DRUG DISCOVERY INFORMATICS SPECIALIST 10/06/2024 8:10 PM DRUG DISCOVERY INFORMATICS SPECIALIST Grey Dykes MD LAB MICROBIOLOGY - GENERAL ORDERABLES Final Result Performing Organization Address [facility] Co de Phone Number ANYDEE FISHER [address] [address] [employer] [place], [place] [phone] * (ABNORMAL) Urinalysis, microscopic only (10/06/2024 12:12 PM DRUG DISCOVERY INFORMATICS SPECIALIST) WBC, ur 0-5 0 - 5 /HPF RBC, ur 3-5(A) 0 - 2 /HPF CERNER Mucous, ur Present(A) CERNER Calcium oxalate crystals, ur Trace(A) CERNER CH Culture Reflex Comment Reflex conditions for urine culture (WBC >10) not met. [facility] Urine, clean voided 10/06/2024 12:12 PM DRUG DISCOVERY INFORMATICS SPECIALIST 10/06/2024 8:12 PM DRUG DISCOVERY INFORMATICS SPECIALIST Grey Dykes MD LAB URINE ORDERABLES Final Result Performing Organization Address [facility] de Phone Number MARVIN PHILLIP [address] [address] [place] [address] * (ABNORMAL) Protein, total (10/06/2024 12:12 PM DRUG DISCOVERY INFORMATICS SPECIALIST) Protein, pl 6.4(L) 6.5 - 8.5 g/dL Blood 10/06/2024 12:1 2 PM DRUG DISCOVERY INFORMATICS SPECIALIST 10/06/2024 8:10 PM DRUG DISCOVERY INFORMATICS SPECIALIST Grey Dykes MD LAB BLOOD ORDERABLES Final Result Performing Organization Address [facility] Co de Phone Number MARVIN PHILLIP [address] [address] [employer] [place], [place] [phone] * XR Pelvis 1 or 2 Views (08/29/2024 9:28 AM DRUG DISCOVERY INFORMATICS SPECIALIST) Anatomical Region Laterality Modality Body, Pelvis N/A Computed Radiogr aphy 08/29/2024 11:0 7 AM DRUG DISCOVERY INFORMATICS SPECIALIST Impressions 08/29/2024 11:10 AM DRUG DISCOVERY INFORMATICS SPECIALIST 1. 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 2. ??Mild bilateral hip osteoarthritis. Dictated by: Ap Mcgregor M.D. The radiology attending physician has personally reviewed this study, and had reviewed and/or edited this written report and agrees with it. Electronically signed by: Errol Parnell M.D. Narrative 08/29/2024 11:10 AM DRUG DISCOVERY INFORMATICS SPECIALIST EXAMINATION: XR KNEE LEFT 4 OR MORE [...] 4 or More Views (08/29/2024 9:28 AM DRUG DISCOVERY INFORMATICS SPECIALIST) Anatomical Region Laterality Modality Lower Extremities, Knee Left Computed Radiography 08/29/2024 11:0 7 AM DRUG DISCOVERY INFORMATICS SPECIALIST Impressions 08/29/2024 11:10 AM DRUG DISCOVERY INFORMATICS SPECIALIST 1. 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 2. ??Mild bilateral hip osteoarthritis. Dictated by: Ap Mcgregor M.D. The radiology attending physician has personally reviewed this study, and had reviewed and/or edited this written report and agrees with it. Electronically signed by: Errol Parnell M.D. Narrative 08/29/2024 11:10 AM DRUG DISCOVERY INFORMATICS SPECIALIST EXAMINATION: XR KNEE LEFT 4 OR MORE [...] it. Electronically signed by: Errol Parnell M.D. us Judah Celaya MD IMG XR PROCEDURES Final [...] of Race in Diagnosing Kidney Disease, JASN 202). The CKD-EPI equation should not be used for patients with unstable renal function and has not been validated in children and those over 70. Current interpretive data was last reviewed 2021. Blood 07/11/2024 11:0 7 AM CDT 07/11/2024 12:06 PM CDT Kavitha Ramirez NP LAB BLOOD ORDERABLES Final Res ult MARVIN FISHER [address] [address] [place] [address] * (ABNORMAL) Urinalysis reflex to microscopic and [...] tendency for uric acid stone formation. Source: [facility] [employer] Current Interpretive Data was last revised on [...] MICROBIOLOGY - GENERAL ORD ERABLES Final Result ANYDEE PHILLIP [address] [address] [place] [address] * Vitamin D 25 hydroxy (07/11/2024 11:07 AM CDT) Vitamin D 25-OH 56 30 - 80 ng/mL Blood 07/11/2024 11:0 7 AM CDT 07/11/2024 12:07 PM CDT us Grey Dykes MD LAB BLOOD ORDERABLES Final Result Performing Organization Address [facility] Co de Phone Number MARVIN FISHER [address] [address] [place] [address] * (ABNORMAL) Urinalysis, microscopic only (07/11/2024 11:07 AM CDT) WBC, ur 21-50(A) 0 - 5 /HPF RBC, ur 3-5(A) 0 - 2 /HPF CERNER Epithelial cells, squamous, ur 1-5 0 - 5 /HPF CERNER CH Mucous, ur Present(A) CERNER CH Calcium oxalate crystals, ur 3+(A) CERNER CH Hyaline casts, ur 1-5 0 - 10 /LPF [facility] Culture Reflex Comment Reflex to urine culture will be performed. [facility] Urine, clean voided 07/11/2024 11:07 AM CDT 07/12/2024 1:49 PM CDT Kavitha Ramirez NP LAB URINE ORDERABLES Final Res ult Performing Organization Address [facility] Co de Phone Number MARVIN FISHER [address] [address] [place] [address] * Type and screen (07/11/2024 11:07 AM CDT) Sarah, indirect Negative ABO Rh O Negative [facility] Blood 07/11/2024 11:0 7 AM CDT 07/11/2024 12:06 PM CDT Narrative [facility] - 07/11/2024 12:49 PM CDT Is this test being ordered in advance for a procedure?->Yes Expected date of procedure:->07/24/24 Has the patient been transfused in the past 3 months?->Unknown Kavitha Ramirez NP LAB BLOOD BANK TEST ORDERABLES Final Result Performing Organization Address [facility]/ZIP Co de Phone Number MARVIN [address] [address] [place] [address] * Urine culture Urine, clean voided (07/11/2024 11:07 AM CDT) Report Final Report: Less than 100,000 colonies/mL (clinically insignificant growth based on current clinical standards) Comment:Testing performed by : [facility], [address] [place]., [address] Organism (CLINICALLY INSIGNIFICANT GROWTH MARVIN Urine, clean voided 07/11/2024 11:07 AM CDT 07/12/2024 6:55 PM CDT Narrative MARVIN - 07/14/2024 9:46 AM CDT Urine culture reflexed based upon urinalysis results. Testing performed by [facility] Microbiology Laboratory ([phone]) Kavitha Ramirez NP LAB MICROBIOLOGY - GENERAL ORD ERABLES Final Result Performing Organization Address [facility] Co de Phone Number MARVIN [address] [address] [place] [address] * Protein, total (07/11/2024 11:07 AM CDT) Pathologist [facility] Protein, pl 6.7 6.5 - 8.5 g/dL Blood 07/11/2024 11:0 7 AM CDT 07/11/2024 12:07 PM CDT us Grey Dykes MD LAB BLOOD ORDERABLES Final Result Performing Organization Address [facility] Co de Phone Number MARVIN [address] [address] [place] [address] * (ABNORMAL) Hemoglobin A1c (07/11/2024 11:07 AM CDT) Pathologist [facility] Hgb A1C 6.1(H) 4.0 - 5.6 % Estimated Average Glucose 128 mg/dL MARVIN Comment: The ADA recommends reporting an estimated Average Glucose (eAG) with all Hemoglobin A1c results using the equation derived from a study of 507 normal and diabetic adults. ??Minority populations were underrepresented and children were not included. ?? (Diabetes Care 31:5418-8110, 2008). ??The eAG is not equivalent to a fasting glucose. Blood 07/11/2024 11:0 7 AM CDT 07/11/2024 12:06 PM CDT Grey Dykes MD LAB BLOOD ORDERABLES Final Result Performing Organization Address City/[facility]/ZIP Co de Phone Number MARVIN [address] [address] Department [employer] [place], [place] [phone] * Albumin (07/11/2024 11:07 AM CDT) Albumin 3.6 3.5 - 5.0 g/dL Blood 07/11/2024 11:0 7 AM CDT 07/11/2024 12:07 PM CDT Grey Dykes MD LAB BLOOD ORDERABLES Final Result Performing Organization Address [facility] Co de Phone Number MARVIN [address] [address] [employer] [place] [address] * Basic metabolic panel (07/11/2024 11:07 AM CDT) Sodium 141 135 - 145 mmol/L Potassium, pl 3.7 3.3 - 4.9 mmol/L [facility] Chloride 106 97 - 110 mmol/L [facility] CO2 22 22 - 32 mmol/L [facility] Anion gap 13 2 - 15 mmol/L [facility] BUN 9 6 - 25 mg/dL [facility] Creatinine 1.09 0.80 - 1.30 mg/dL [facility] Glucose 140 70 - 199 mg/dL [facility] Comment: Interpretive Data Fasting glucose >/= 126 [...] Calcium 9.6 8.5 - 10.3 mg/dL MARVIN FISHER Blood 07/11/2024 11:0 7 AM CDT 07/11/2024 12:06 PM CDT us Kavitha Ramirez NP LAB BLOOD ORDERABLES Final Res ult MARVIN FISHER [address] [address] [place] [address] * CT Chest Abdomen Pelvis W Contrast (10/11/2023 10:12 AM DRUG DISCOVERY INFORMATICS SPECIALIST) Anatomical Region Laterality Modality Body N/A Computed Tomogra phy 10/11/2023 11:0 3 AM DRUG DISCOVERY INFORMATICS SPECIALIST Impressions 10/11/2023 11:03 AM DRUG DISCOVERY INFORMATICS SPECIALIST A 12 x 12 mm pulmonary nodule in the lateral aspect of the right costophrenic sulcus, new since 2019, is suspicious for primary lung malignancy. Electronically signed by: Jayshree Giles MD, Ph.D Narrative 10/11/2023 11:03 AM DRUG DISCOVERY INFORMATICS SPECIALIST EXAMINATION: ??Computed tomography of chest/abdomen/pelvis with intravenous [...] apical nodularity compared to prior study in 2020. ??Bones: No suspicious osseous lesion. ABDOMEN/PELVIS Liver: [...] by: Jayshree Giles MD, Ph.D Taylor Bland HAND COOPER HELPER IMG CT PROCEDURES Final Result from Last 3 Months or Most Recently Relevant to Health Maintenance Insurance [employer] MEDICARE PPO [facility] OTHER Address: [address] [address] [place] [address] YAZUO OOS MEDICARE [facility] [place] [address] [employer] MEDICARE PPO IDPA [facility] [place] [address] [facility] [place] [address] [facility] [place] [address] [facility] [place] [address] Advance Directives For more information, please contact: [phone] Documents on File Type Date Recorded Patient Waffle Machine Operator Expl anation ADVANCE DIRECTIVE 01/10/2024 3:33 PM LIVING WILL ADVANCE DIRECTIVE 01/10/2024 3:33 PM POWER OF TONGUE PRESSER-MEDICAL * Full Code (Latest Code Status on [...] 5:17 PM 12/30/2019 5:42 PM Care Teams Wilderness Guide Relationship Specialty Start Date End Date Wolfgang Serrano MD [address] [place] [address] PCP - General Family Medicine 08/03/24 Wolfgang Serrano MD [address] [place] [address] Family Medicine 08/03/24 Unknown, Notinfile 03/12/22 [place] [address] [address] [facility] [address] [place] [address] 03/12/22 Chuy Enriquez MD [address] [facility] [address] [place] [address] Consulting Physician Pulmonary Disease 10/13/23 Luis Felipe Cedillo MD [address] [facility] [address] [place] [address] Consulting Physician Gastroenterology 10/13/23 Marlene Thornton MD [address] [address] Surgeon Vascular Surgery 11/10/23
--- OUTSIDE RECORDS SUMMARY | 2024-10-11 01:51 | XMS_ITS | Encounter Summary ---
Author Organization [facility] Healthcare Address [address] [place] [address] Care Team Providers Care Mold Sheet Cleaner Name Role Phone Wolfgang Serrano MD Primary Care Provider [phone] Unknown, Notinfile Unavailable Unavailable Santino Funk MD Unavailable Chuy Enriquez MD Unavailable Luis Felipe Cedillo MD Unavailable [phone] Marlene Thornton MD Unavailable Encounter Details Date Type Department Care Team (Latest Contact Info) Description 07/11/2024 10:45 AM CDT Pre-Admission Testing [facility] Pre Anesthesia Testing [address] [place] [address] Pre-op testing (Primary Dx); Arthritis of left knee; Hypoglycemia; Vitamin D deficiency Social History Tobacco Use Types Packs/Day Years Used Date Smoking Tobacco: Former Cigarettes 1 6 1966 Passive Smoke Exposure: Never Smokeless Tobacco: [...] materials from doctor or pharmacy Sometimes 03/08/2024 [facility] Utilities Answer Date Recorded In [...] often do you attend chur ch or yazidi services? 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 Will send when available. Thank you. * Perioperative Nursing Note - Madie Trujillo RN - 07/11/2024 2:34 PM CDT Endgame message sent to Dr Rivera: Abnormal lab has been routed, urine specimen still pending (patient was unable to urinate during PAT, will return this week to provide specimen). Thank you. * Pre-Procedure Instructions - Madie Trujillo RN - 07/11/2024 10:45 AM CDT [facility] [address] [place] [address] We are pleased that you and your doctor have chosen [facility] for your surgery. We hope that the following information will help make your visit a pleasant one. Surgery Date: 07/24/24 Arrive at 8:00am Before your surgery: Notify your doctor of ANY change in your health such as a cold, sore throat, fever, an infection, or a change in the problem for which you are having your surgery, if you were in the hospital or Emergency Room. Notify your surgeon if you test positive for COVID. Follow any instructions given to you by your doctor or surgeon. If you take any type of blood thinner, including ASPIRIN: YOU ARE RESPONSIBLE FOR CALLING your physician to determine when it should be held for your surgery. You are to STOP TAKING: All vitamin/herbal supplements, including Vitamin D, Vitamin E, Fish Oil, CoQ10, multivitamins, anddiet pills 14 days prior to surgery, or as soon as possible. Excedrin, Motrin/Advil (Ibuprofen), Aleve (Naproxen), Celebrex (Celecoxib), Indocin (Indomethacin),Toradol (Ketorolac), Voltaren (oral and topical), and/or Mobic (meloxicam) 7 days prior to surgery. If you have pain, you may take Tylenol/Extra Strength Tylenol (unless it is not recommended by yourphysician). 24 hours before your surgery: Hydrate yourself (water) - if no restrictions. No shaving for 24 hours prior to your surgery. Night before your surgery: DO NOT eat or drink anything after midnight. Nothing to eat includes hard candy, mints, gum, chewable antacids, and cough drops. Follow surgeon's instructions for anti-bacterial (CHG) shower night before and morning of surgery. Shower Instructions: Clean your hair using normal shampoo and/or conditioner products. Using your own normal soap and one washcloth, wash your face. Move away from the shower stream. Using a second freshly washed washcloth and the CHG soap, thoroughly wash from neck down (avoid face, hair, and genital area). Use enough soap to thoroughly cover your body. You may need help if some areas cannot easily be reached, such as your back. Wash with the CHG soap for 2-3 minutes then Rinse thoroughly and dry with a clean towel (use a different freshly washed towel for each shower). Dress in clean, freshly washed pajamas or clothing. Do not use perfume/cologne, make-up, nail cymraes, lotions, oil/Vaseline, or powders on your skin. Powder-free deodorant is permitted. Do not shave below the neck on the night before or day of surgery The night before surgery sleep on clean linen, no pets. Day of surgery: Repeat your shower You may brush your teeth and rinse your mouth out. Do not swallow any extra water. Do not glue in dentures or partials. Wear comfortable clothes that will not be tight over the area of your surgery. Leave all valuables and jewelry (including all body piercing jewelry) at home. Please bring your photo ID, insurance cards, and medication list (including all [id number] medications) with you. If you have an implantable device with a remote, bring the remote with you. ONLY take these pills with a small sip of water: Pre-Surgery Instructions: Medication Instructions Advair HFA inhaler If needed albuterol HFA inhaler If needed cetirizine (ZyrTEC) If needed Flovent HFA inhaler If needed furosemide (LASIX) levothyroxine (SYNTHROID) oxybutynin XL (DITROPAN-XL) pantoprazole DR (PROTONIX) scopolamine patch If needed spironolactone (ALDACTONE) tamsulosin (FLOMAX) vibegron (Gemtesa) What to bring if you are spending the night with us: Bring toiletry items such as: robe, slippers, toothbrush, toothpaste, brush, or comb. Bring contact lens, hearing aids, glass case, and denture container. The hospital will provide you with a gown. If you use a CPAP machine, please bring it with you to wear after your surgery. Questions or concerns: If you have any questions, or concerns regarding your procedure, or to cancel your surgery/procedure - contact your surgeon as soon as possible. If you have questions regarding your Pre-Admission Screen/Testing, or these instructions, please call Madie at . documented in this encounter Plan of Treatment Upcoming Encounters Date Type Department Care Team (Latest Contact Info) Description 10/23/2024 10:00 AM BULK SUGAR HANDLER Hospital Encounter [facility] Operating Room [address] [place] [id number] [place] [address] [id number] 10/23/2024 10:00 AM BULK SUGAR HANDLER - 10/23/2024 1:00 PM BULK SUGAR HANDLER Surgery [facility] Operating Room [address] [place] [id number] [place] [phone] [id number] ARTHROPLASTY TOTAL KNEE LEFT Scheduled Procedures Name Priority Associated Diagnoses Date/Ti me ARTHROPLASTY TOTAL KNEE left knee osteoarthritis 10/23/2024 10:00 AM BULK SUGAR HANDLER ESOPHAGOGASTRODUODENOSCOPY Dysphagia, unspecified type documented as of this encounter Procedures Procedure Name Priority Date/Time Associated Diagnosis Comments EGFR Routine 07/11/2024 11:07 AM CDT Pre-op testing URINALYSIS AND REFLEX TO MICROSCOPIC AND CULTURE Routine 07/11/2024 11:07 AM CDT Pre-op testing VITAMIN D 25 HYDROXY Routine 07/11/2024 11:07 AM CDT Arthritis of left knee Hypoglycemia Vitamin D deficiency URINALYSIS, MICROSCOPIC ONLY Routine 07/11/2024 11:07 AM CDT Pre-op testing TYPE AND SCREEN Routine 07/11/2024 11:07 AM CDT Pre-op testing URINE CULTURE Routine 07/11/2024 11:07 AM CDT PROTEIN, TOTAL Routine 07/11/2024 11:07 AM CDT Arthritis of left knee Hypoglycemia Vitamin D deficiency HEMOGLOBIN A1C Routine 07/11/2024 11:07 AM CDT Arthritis of left knee Hypoglycemia Vitamin D deficiency ALBUMIN Routine 07/11/2024 11:07 AM CDT Arthritis of left knee Hypoglycemia Vitamin D deficiency BASIC METABOLIC PANEL Routine 07/11/2024 11:07 AM CDT Pre-op testing documented in this encounter Results * Urine culture Urine, clean voided (07/11/2024 11:07 AM CDT) Report Final Report: Less than 100,000 colonies/mL (clinically insignificant growth based on current clinical standards) Comment:Testing performed by : [facility], [address] [facility] [place]., [address] Organism (CLINICALLY INSIGNIFICANT GROWTH MARVIN FISHER Urine, clean voided 07/11/2024 11:07 AM CDT 07/12/2024 6:55 PM CDT Narrative MARVIN FISHER - 07/14/2024 9:46 AM CDT Urine culture reflexed based upon urinalysis results. Testing performed by [facility] ([phone]) us Kavitha Ramirez NP LAB MICROBIOLOGY - GENERAL ORD ERABLES Final Result MARVIN FISHER [address] Department [place] [address] * (ABNORMAL) Urinalysis, microscopic only (07/11/2024 11:07 AM CDT) WBC, ur 21-50(A) 0 - 5 /HPF RBC, ur 3-5(A) 0 - 2 /HPF [facility] Epithelial cells, squamous, ur 1-5 0 - 5 /HPF [facility] Mucous, ur Present(A) CERNER Calcium oxalate crystals, ur 3+(A) CERNER Hyaline casts, ur 1-5 0 - 10 /LPF [facility] Culture Reflex Comment Reflex to urine culture will be performed. [facility] Urine, clean voided 07/11/2024 11:07 AM CDT 07/12/2024 1:49 PM CDT us Kavitha Ramirez CUSHION COVER INSPECTOR LAB URINE ORDERABLES Final Res ult [facility] [address] Department [place] [address] * eGFR (07/11/2024 11:07 AM CDT) eGFR [...] NP LAB BLOOD ORDERABLES Final Res ult Performing Organization Address [facility] de Phone Number ANYDEE [phone] [address] Department [employer] [place] [address] * Albumin (07/11/2024 11:07 AM CDT) Albumin 3.6 3.5 - 5.0 g/dL Blood 07/11/2024 11:0 7 AM CDT 07/11/2024 12:07 PM CDT Grey Dykes MD LAB BLOOD ORDERABLES Final Result Performing Organization Address [facility] Phone Number ANYDEE [phone] [address] [email or web address] [address] * (ABNORMAL) Hemoglobin A1c (07/11/2024 11:07 AM CDT) Hgb A1C 6.1(H) 4.0 - 5.6 % Estimated Average Glucose 128 mg/dL MARVIN FISHER Comment: The ADA recommends reporting an estimated Average Glucose (eAG) with all Hemoglobin A1c results using the equation derived from a study of 507 normal and diabetic adults. ??Minority populations were underrepresented and children were not included. ?? (Diabetes Care 31:3078-6602, 2008). ??The eAG is not equivalent to a fasting glucose. Blood 07/11/2024 11:0 7 AM CDT 07/11/2024 12:06 PM CDT Grey Dykes MD LAB BLOOD ORDERABLES Final Result Performing Organization Address [facility] Co de Phone Number ANYDEE [phone] [address] [facility] [employer] [place] [address] * Protein, total (07/11/2024 11:07 AM CDT) Protein, pl 6.7 6.5 - 8.5 g/dL Blood 07/11/2024 11:0 7 AM CDT 07/11/2024 12:07 PM CDT Grey Dykes MD LAB BLOOD ORDERABLES Final Result Performing Organization Address [facility] de Phone Number MARVIN [address] [address] Department [place] [address] * Vitamin D 25 hydroxy (07/11/2024 11:07 AM CDT) Vitamin D 25-OH 56 30 - 80 ng/mL Blood 07/11/2024 11:0 7 AM CDT 07/11/2024 12:07 PM CDT Grey Dykes MD LAB BLOOD ORDERABLES Final Result Performing Organization Address [facility] de Phone Number MARVIN [address] [address] Department of [employer] [place] [address] * (ABNORMAL) Urinalysis reflex to microscopic and culture Urine, clean voided (07/11/2024 11:07 AM CDT) Color, ur Yellow Yellow Clarity, ur Clear Clear CERNER Specific gravity, ur 1.025 1.003 - 1.030 CERNER pH, urine 6.0 CERNER Comment: Interpretive Data ? Urine pH is affected by diet, medications, systemic acid-base disturbances, and renal tubular function. ??pH may affect urinary stone formation. ??For example, urine pH below 6.0 may help reduce the tendency for calcium phosphate stones and pH greater than 6.0 may reduce the tendency for uric acid stone formation. Source: [facility] [employer] Current Interpretive Data was last revised on 2017 Protein, ur ql Negative Negative CERNER CH Glucose, ur ql Negative Negative CERN[facility] CH Ketones, ur Negative Negative [facility] Bilirubin, ur Negative Negative [facility] CH Blood, ur Negative Negative [facility] Urobilinogen, ur <2.0 <2.0 mg/dL CERN[facility] CH Nitrite, ur Negative Negative [facility] Leukocyte esterase, ur 2+(A) Negative CERNER UA reflex comment Reflex to microscopic UA will be performed. [facility] Urine, clean voided 07/11/2024 11:07 AM CDT 07/12/2024 1:49 PM CDT Kavitha Ramirez NP LAB MICROBIOLOGY - GENERAL ORD ERABLES Final Result Performing Organization Address [facility] Co de Phone Number MARVIN [address] [address] Department of Laboratories [place], [place] [id number] * Type and screen (07/11/2024 11:07 AM CDT) Pathologist [facility] Sarah, indirect Negative ABO Rh O Negative [facility] Blood 07/11/2024 11:0 7 AM CDT 07/11/2024 12:06 PM CDT Narrative [facility] - 07/11/2024 12:49 PM CDT Is this test being ordered in advance for a procedure?->Yes Expected date of procedure:->07/24/24 Has the patient been transfused in the past 3 months?->Unknown Kavitha Ramirez NP LAB BLOOD BANK TEST ORDERABLES Final Result Performing Organization Address [facility] de Phone Number MARVIN FISHER [address] [address] Department [place] [address] * Basic metabolic panel (07/11/2024 11:07 AM CDT) Pathologist [facility] Sodium 141 135 - 145 mmol/L Potassium, pl 3.7 3.3 - 4.9 mmol/L [facility] Chloride 106 97 - 110 mmol/L [facility] CO2 22 22 - 32 mmol/L [facility] Anion gap 13 2 - 15 mmol/L [facility] BUN 9 6 - 25 mg/dL [facility] Creatinine 1.09 0.80 - 1.30 mg/dL [facility] Glucose 140 70 - 199 mg/dL [facility] Comment: Interpretive Data Fasting glucose >/= [...] CDT 07/11/2024 12:06 PM CDT Kavitha Ramirez CUSHION COVER INSPECTOR LAB BLOOD ORDERABLES Final Res ult MARVIN [address] [address] Department [place] [address] documented in this encounter Visit Diagnoses Diagnosis Pre-op testing- Primary Unspecified pre-operative examination Arthritis of left knee Hypoglycemia Hypoglycemia, unspecified Vitamin D deficiency documented in this encounter Care Teams Mold Sheet Cleaner Relationship Specialty Start Date End Date Wolfgang Serrano MD PCP - General Family Medicine 05/05/23 08/02/24 Unknown, Notinfile 03/12/22 [place] [address] [address] [facility] [address] [place] [address] 03/12/22 Chuy Enriquez MD [address] [facility] [address] [place] [address] Consulting Physician Pulmonary Disease 10/13/23 Luis Felipe Cedillo MD [address] [place] [address] Consulting Physician Gastroenterology 10/13/23 Marlene Thornton MD [address] [place] [address] Surgeon Vascular Surgery 11/10/23 documented as of this encounter
--- OUTSIDE RECORDS SUMMARY | 2024-10-11 01:52 | XMS_ITS | Encounter Summary ---
Author Organization [facility] Healthcare Address [address] [place] [address] Care Team Providers Care Awning Hanger Supervisor Name Role Phone Wolfgang Serrano MD Primary Care Provider [phone] Unknown, Notinfile Unavailable Unavailable Santino Funk MD Unavailable [phone] Chuy Enriquez MD Unavailable Luis Felipe Cedillo MD Unavailable [phone] Marlene Thornton MD Unavailable Reason for Visit * Auth/Cert (Routine) Specialty Diagnoses / Procedures Referred By Contac t Referred To Contact Referral ID Status Reason Start Date Expiration Date Visits Re quested Visits Authorized [id number] 1 60 Encounter Details Date Type Department Care Team (Latest Contact Info) Description 03/08/2024 9:00 AM CDT Home Care Visit [facility] [address] [address] [address] [place] [address] Kavya Basurto, OT OT DISCIPLINE DISCHARGE Social History Tobacco Use Types Packs/Day Years Used Date Smoking Tobacco: Former Cigarettes 1 - 1966 Smokeless Tobacco: Never Alcohol Use Standard Drinks/Week [...] materials from doctor or pharmacy Sometimes 03/08/2024 [facility] Utilities Answer Date Recorded In the past 12 months has e [employer], gas, oil, or water company threatened to [...] any clubs o r organizations such as hoahaoism groups, unions, fraternal or athletic groups, or school groups? No 12/16/2023 How often do you attend meet ings of the clubs or organizations you belong to? Never 12/16/2023 Are you , , di vorced, , never , or living with a partner? 12/16/2023 AUDIT-C Answer Date Recorded Q1: How often do you have a drink containing alc ohol? Monthly or less 12/16/2023 Q2: How many drinks containi ng alcohol do you have on a typical day when you are drinking? 1 or 2 12/16/2023 Q3: How often do you have si x or more drinks on one occasion? Less than monthly 12/16/2023 Overall Financial Resource Strain (CARDIA) Answe r Date Recorded How hard is it for you to pa y for the very basics like food, housing, medical care, and heating? Not hard at all 12/16/2023 PHQ-2 Answer Date Recorded Patient Health Questionnaire-2 Score 0 01/06/2024 [facility] - Occupational Stress [...] place to sleep or slept in a fpc (including now)? No 12/16/2023 Personal Safety Answer Date Recorded Have you ever been in or are you currently in a harmful physical or emotional relationship or is someone making you feel afraid or unsafe? Denies 12/15/2023 Sex and Gender Information Value Date Recorded Sex Assigned at Not on file Legal Sex Male 3:25 PM RELATIONSHIP SPECIALIST Gender Identity Not on file Sexual Orientation Not on file documented as of this encounter Last Filed Vital Signs Vital Sign Reading Time Taken Comments Blood Pressure 112/73 03/08/2024 9:29 AM CDT Pulse 85 03/08/2024 9:29 AM CDT Temperature 35.9 ??C (96.6 ??F) 03/08/2024 9:29 AM CD T Respiratory Rate 18 03/08/2024 9:29 AM CDT Oxygen Saturation 98% 03/08/2024 9:29 AM CDT Inhaled Oxygen Concentration - - Weight - - Height - - Body Mass Index - - documented in this encounter Miscellaneous Notes * Home Health Plan for Next Visit - Kavya Basurto OT - 03/08/2024 10:22 AM CDT Reason for today's visit HHOT d/c Discuss plan of care with pt. Discharge planning for this visit as OT goals adequately met. Pt and cgs agree to OT discharge and continue with PT * Home Health Visit Narrative - Kvaya Basurto OT - 03/08/2024 9:31 AM CDT Pt. was referred to HHOT s/p admission to [facility] from 12/07/2023 - 12/15/2023 (8 days) secondary to acute CVA. Patient is currently in manual w/c, sling donned on left UE. C Pt. lives in a one story house with his . Pt. has a c/g starting 5 days a week 8am-4pm. Pt. hasa supportive family who assist in his care PMH: seizure, asthma, GERD, GE junction diverticulum, hyperlipidemia, hypothyroidism and AAA PLOF: Pt. indep for ADL's and most IADL's. Pt. ambulated without a device. Pt. indep for transfers. Pt.'s goals are to get left arm working. Pt. was seen for HHOT d/c. Pt.'s goals remain appropriate. Plan to d/c at this visit. Pt. in agreement with HHOT d/c and POC. Pt. reported a fall to OT. Pt. was getting ready to sit down to get dressed in bathroom. Pt.'s footwas on a pice of clothing and when he went to sit he slipped. Pt. had a controlled fall with no injury. OT to call and report fall documented in this encounter Plan of Treatment Upcoming Encounters Date Type Department Care Team (Latest Contact Info) Description 10/23/2024 10:00 AM RELATIONSHIP SPECIALIST Hospital Encounter [facility] Operating Room [address] [place], [place] [id number] [place] [address] [address] 10/23/2024 10:00 AM RELATIONSHIP SPECIALIST - 10/23/2024 1:00 PM RELATIONSHIP SPECIALIST Surgery [facility] Operating Room [address] [place] [address] [place] [address] [facility] [address] [place] [address] ARTHROPLASTY TOTAL KNEE LEFT Scheduled Procedures Name Priority Associated Diagnoses Date/Ti me ARTHROPLASTY TOTAL KNEE left knee osteoarthritis 10/23/2024 10:00 AM RELATIONSHIP SPECIALIST ESOPHAGOGASTRODUODENOSCOPY Dysphagia, unspecified type documented as of this encounter Visit Diagnoses Not on filedocumented in this encounter Home Health Visit - Care Plan Visit Details Visit Type -OT Discipline Mary jean Discipline -Occupational Therapy Problems Problem Description Start Date Status Goals Interventions Homebound Status Disciplines: Skilled Disciplines Patient's homebound status 01/09/2024 Resolved on 03/08/2024 1 goal linked to scheduled/docume nted intervention 1 goal intervention scheduled/docume nted in this visit Monitor patient's vital signs every home health visit Disciplines: SN, PT, OT, CHOCOLATE FINISHER OPERATOR, SMT MACHINE OPERATOR, Skilled Disciplines Monitor patient's vital signs every home health visit. 01/09/2024 Resolved on 03/08/2024 1 goal linked to scheduled/docume nted intervention 1 goal intervention scheduled/docume nted in this visit Infection Prevention Disciplines: Skilled Disciplines Infection Prevention 01/09/2024 Resolved on 03/08/2024 1 goal linked to scheduled/docume nted intervention 2 goal interventions scheduled/docume nted in this visit Safety concerns Disciplines: Skilled Disciplines Alteration in safety 01/09/2024 Resolved on 03/08/2024 1 goal linked to scheduled/docume nted intervention 2 goal interventions scheduled/docume nted in this visit DVT Prevention and Management Disciplines: Skilled Disciplines Management of anticoagulation therapy 01/09/2024 Resolved on 03/08/2024 1 goal linked to scheduled/docume nted intervention 2 goal interventions scheduled/docume nted in this visit Pain Disciplines: Core Disciplines Alteration in comfort 01/09/2024 Resolved on 03/08/2024 1 goal linked to scheduled/docume nted intervention 1 goal intervention scheduled/docume nted in this visit OT Stroke/CVA Disciplines: Occupational Therapy After care related to stroke/CVA 01/14/2024 Active 2 goals linked to scheduled/docume nted interventions OT Alteration in Coping Disciplines: Occupational Therapy Impaired ability to cope with current stressors 01/14/2024 Active 1 goal linked to scheduled/docume nted intervention OT Activity Tolerance/Energ y Conservation Disciplines: Occupational Therapy Impaired activity tolerance for functional activity 01/14/2024 Active 1 goal linked to scheduled/docume nted intervention 1 problem intervention scheduled/docume nted in this visit OT Impaired UE Function and/or Fine Motor Skills Disciplines: Occupational Therapy Impaired functional use of upper extremity and hands 01/14/2024 Active 3 goals linked to scheduled/docume nted interventions 1 problem intervention scheduled/docume nted in this visit OT Impaired IADLs Disciplines: Occupational Therapy Impaired independence in house management/homemaki ng activities 01/14/2024 Active 1 goal linked to scheduled/docume nted intervention OT Impaired Functional Mobility/Balanc e Disciplines: Occupational Therapy Impaired functional mobility/balance 01/14/2024 Active 3 goals linked to scheduled/docume nted interventions OT Impaired ADLs Disciplines: Occupational Therapy Impaired independence in self-care, ADLs. 01/14/2024 Active 1 goal linked to scheduled/docume nted intervention Goals Goal Associated Problem Outcome Goal Met? Visit Notes Patient receives care at the most appropriate care setting Description: Patient receives care at the most appropriate care setting. Homebound Status No Measure vital signs during every home health visit during episode of care Description: Home office clinician to measure vital signs during every home health visit during episode of care. Monitor patient's vital signs every home health visit No Verbalize signs of infection Description: Patient/caregiver will demonstrate knowledge of infection prevention strategies by verbalizing signs and symptoms of infection. Infection Prevention No Demonstrate use of safety precautions Description: Patient/caregiver maintains safe home environment as evidenced by remaining free from injury and demonstrates use of safety precautions. Safety concerns No Demonstrate knowledge of anticoagulant therapy Description: Patient/caregiver will verbalize understanding of anticoagulation therapy including adverse signs and symptoms to notify physician or contact EMS. DVT Prevention and Management No Report that pain has been reduced or controlled Description: Patient/caregiver/famil y will verbalize satisfaction with the patients level of pain and symptom control. Pain No Improvement in caregiver knowledge Description: Patient/caregiver will demonstrate improved knowledge of CVA and compensation strategies by 03/08/24 OT Stroke/CVA Completed Yes Patient/caregiver will demonstrate improved knowledge of CVA and compensation strategies by 03/08/24. completed Cognition: Understanding and performance of compensatory strategies. Description: Patient/caregiver will demonstrate ability to utilize compensatory techniques/strategies by 03/08/24 OT Stroke/CVA Completed Yes Patient/caregiver will demonstrate ability to utilize compensatory techniques/strategie s by 03/08/24. completed Improved management of stressors Description: Patient will demonstrate improved ability to perform ADL's and IADL's and/ or manage pain by utilizing relaxation strategies by 03/08/24 OT Alteration in Coping Completed Yes Patient will demonstrate improved ability to perform ADL's and IADL's and/ or manage pain by utilizing relaxation strategies by 03/08/24. completed Improvement in activity tolerance Description: Using energy conservation techniques, patient to perform ADL's and IADL's with a score of 13 or less on the ISIS scale using energy conservation techniques by 02/19/24 OT Activity Tolerance/Energy Conservation Completed Yes Using energy conservation techniques, patient to perform ADL's and IADL's with a score of 13 or less on the ISIS scale using energy conservation techniques by 02/19/24. Pt. rates ADL's and IADL's as a somewhat hard activity which is a 13 on the ISIS scale. Knowledge of taping techniques Description: Patient/caregiver will demonstrate knowledge of taping techniques for joint support, muscle inhibition, posture and/or pain relief by 03/08/24 OT Impaired UE Function and/or Fine Motor Skills Completed Yes Patient/caregiver will demonstrate knowledge of taping techniques for joint support, muscle inhibition, posture and/or pain relief by 03/08/24. compeleted Positioning with UE Description: Patient/caregiver will demonstrate understanding of positioning for left UE by 03/08/24 OT Impaired UE Function and/or Fine Motor Skills Completed Yes Patient/caregiver will demonstrate understanding of positioning for left UE by 03/08/24 completed Performance with HEP Description: Patient/caregiver to perform progressed HEP for UE function and/or fine motor skills by 03/08/24 OT Impaired UE Function and/or Fine Motor Skills Completed Yes Patient/caregiver to perform progressed HEP for UE function and/or fine motor skills by 03/08/24. pt. indep with HEP Improvement in IADL performance Description: Patient to perform light house management/homemaking activities with mod I by 03/08/24 OT Impaired IADLs Completed Yes Patient to perform light house management/homemakin g activities with mod I by 03/08/24. pt. is mod I with light IADL's Improvement in ADL related transfers Description: Patient/caregiver will demonstrate sit to stand transfer with indep using DME as needed by 03/08/24 Patient/caregiver will demonstrate shower transfer with indep using DME as needed by 03/08/24 OT Impaired Functional Mobility/Balance Completed Yes Patient/caregiver will demonstrate sit to stand transfer with indep using DME as needed by 03/08/24. indep Patient/caregiver will demonstrate shower transfer with indep using DME as needed by 03/08/24. indep Improve balance during functional activities Description: Patient will tolerate and safely perform/participate in ADL's and IADL's by 03/08/24 Patient will safely ambulated to and from garage to get food out of refrigerator by 03/08/24 OT Impaired Functional Mobility/Balance Completed Yes Patient will tolerate and safely perform/participate in ADL's and IADL's by 03/08/24. Pt. stated that his balance has gotten a lot better Patient will safely ambulated to and from garage to get food out of refrigerator by 03/08/24. pt. can get food out of the garage refrigerator Obtaining and use of assistive device/DME Description: Patient to perform ADL's and IADL's with assistive device/DME and mod I by 03/08/24 OT Impaired Functional Mobility/Balance Completed Yes Patient to perform ADL's and IADL's with assistive device/DME and mod I by 03/08/24. completed Improvement in ADL performance Description: Patient will complete dressing tasks with adaptive equipment requiring mod I by 03/08/24 OT Impaired ADLs Completed Yes Patient will complete dressing tasks with adaptive equipment requiring mod I by 03/08/24. Pt. mod I for dressing Interventions Intervention Associated Problem/Goal Status Variance Visit Notes Homebound Status Description: Patient is homebound due to recent CVA as evidenced by left-sided weakness, need for w/c, need for AD and person assist with mobility, steps without handrail to enter / exit home, LE weakness, balance deficits, fall risk. Problem:Homebound Status Goal:Patient receives care at the most appropriate care setting Completed Patient is homebound due to recent CVA as evidenced by left-sided weakness, need for w/c, need for AD and person assist with mobility, steps without handrail to enter / exit home, LE weakness, balance deficits, fall risk as evidence by limited movement in left UE, needing breaks between activities, needing assistance for transfers, and increased weakness Monitor Vital Signs Description: Monitor blood pressure, pulse, oxygen saturation, respirations Problem:Monitor patient's vital signs every home health visit Goal:Measure vital signs during every home health visit during episode of care Completed Educate Patient on Infection Prevention Description: Instruct patient on signs and symptoms of infection IE: fever, odor, change in color, increased amount of drainage, purulent drainage, warmth. Problem:Infection Prevention Goal:Verbalize signs of infection Scheduled Educate Family on Infection Prevention Description: Instructed family on signs and symptoms of infection IE: fever, odor, change in color, increased amount of drainage, purulent drainage, warmth. Problem:Infection Prevention Goal:Verbalize signs of infection Scheduled Instruct Fall Prevention Description: Instruct patient/caregiver in methods to prevent falls Problem:Safety concerns Goal:Demonstrate use of safety precautions Scheduled Assess safety Description: Assess patient safety Problem:Safety concerns Goal:Demonstrate use of safety precautions Scheduled Instruct on Anticoagulation Therapy Description: Instruct patient/caregiver on anticoagulation medication regimen and signs and symptoms to report to home care agency or provider. Problem:DVT Prevention and Management Goal:Demonstrate knowledge of anticoagulant therapy Scheduled Instruct on the prevention of deep vein thrombosis Description: Instruct patient/caregiver on signs and symptoms, preventative measures related to DVT, and provide ongoing home support based on patient needs Problem:DVT Prevention and Management Goal:Demonstrate knowledge of anticoagulant therapy Scheduled Instruct on pain management techniques Description: Instruct in pharmacologic and nonpharmacologic pain management techniques. Problem:Pain Goal:Report that pain has been reduced or controlled Scheduled Energy Conservation Education Description: Instruct patient/caregiver in techniques for improved activity tolerance Problem:OT Activity Tolerance/Energy Conservation Completed Educated pt. on the importance of listening to your body, not doing to much at once and taking breaks. Pt. demonstrated good understanding of information Positioning Description: Patient/caregiver education for proper positioning. Problem:OT Impaired UE Function and/or Fine Motor Skills Completed Reviewed the importance of keeping LUE in proper positioning for help prevent pain and injury. Pt. demonstrated good understanding of information documented in this encounter Care Teams Awning Hanger Supervisor Relationship Specialty Start Date End Date Wolfgang Serrano MD PCP - General Family Medicine 05/05/23 08/02/24 Unknown, Notinfile 03/12/22 [place] [address] [place] [address] 03/12/22 Chuy Enriquez MD [address] [place] [address] Consulting Physician Pulmonary Disease 10/13/23 Luis Felipe Cedillo MD [address] [place] [address] Consulting Physician Gastroenterology 10/13/23 Marlene Thornton MD [address], [place] [address] Surgeon Vascular Surgery 11/10/23 documented as of this encounter
--- OUTSIDE RECORDS SUMMARY | 2024-10-11 01:52 | XMS_ITS | Encounter Summary ---
Author Organization [facility] Address [address] [place] [address] Care Team Providers Care Glass Cut Off Tender Name Role Phone Wolfgang Serrano MD Primary Care Provider [phone] Unknown, Notinfile Unavailable Unavailable Santino Funk MD Unavailable [phone] Chuy Enriquez MD Unavailable Luis Felipe Cedillo MD Unavailable Marlene Thornton MD Unavailable Reason for Visit * Reason Comments Pre-op Visit Follow-up Encounter Details Date Type Department Care Team (Latest Contact Info) Description 04/26/2024 1:45 PM CDT Office Visit [facility] Orthoped[facility] Medicine at [place] [id number] [facility] [address] [place] [phone] George Sepulveda MD [address] [place] [id number] Primary osteoarthritis of both knees (Primary Dx); Hx of total knee replacement, right; Hemiparesis affecting left side as late effect of cerebrovascular accident (CVA) (CMS/HCC) (HCC) Social History Tobacco Use Types Packs/Day [...] materials from doctor or pharmacy Sometimes 03/08/2024 [facility] Utilities Answer Date Recorded In the past 12 months has e electric, gas, oil, or water company [...] often do you attend chur ch or protestant services? More than 4 times per year 12/16/2023 Do you belong to any clubs o r organizations such as gnosticist groups, unions, fraternal or athletic groups, or [...] Recorded Patient Health Questionnaire-2 Score 0 01/06/2024 [facility] - Occupational [...] place to sleep or slept in a senior care (including now)? No 12/16/2023 Personal Safety Answer Date Recorded Have you ever been in or are you currently in a harmful physical or emotional relationship or is someone making you feel afraid or unsafe? 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 History and Physical Subjective CHIEF COMPLAINT He had concerns including Pre-op Visit and Follow-up of the Left Knee. HISTORY OF PRESENT ILLINESS Patient returns today for follow-up evaluation. He reports persistent debilitating pain in his leftknee. He had an injection in March which provided some relief. He has recovering from a stroke and therapy has been beneficial but the patient wants to maximize his therapeutic potential and is here to discuss the potential for knee replacement surgery. The patient is unable to ambulate due to the pain in his left knee. He feels like this is inhibiting his ability to regain function after his stroke. He is here with his to discuss surgical intervention. He has had a successful right total knee arthroplasty. Pain Assessment Pain Assessment: 0-10 Pain Score: 5 - Moderate pain Pain Orientation: Left Pain Descriptors: Aching, Discomfort, Sore, Tightness Pain Frequency: Positional Clinical Progression: Gradually worsening Aggravating Factors: Walking, Standing Result of Injury: No Work-Related Injury: No PAST MEDICAL HISTORY He has a past medical history of Acute gastric ulcer without hemorrhage or perforation, Alzheimer'sdementia ([facility]), Asthma, Back pain, Cataract, Closed fracture of left tibial plateau with delayed healing, Closed fracture of right tibial plateau with delayed healing, Closed nondisplaced osteochondral fracture of left patella with delayed healing, Closed osteochondral fracture of patella, right, with delayed healing, subsequent encounter, Clotting disorder ([facility]) ([facility]), Complex tear of medialmeniscus of left knee as current injury, Complex tear of medial meniscus of right knee as current injury, Cramps of lower extremity, Diverticulitis of colon, Easy bruisability, Fatigue, Frequent urina tion, Gastroesophageal reflux disease, Hypothyroidism, Incontinence of urine, Muscle weakness, Osteoarthritis, Peptic ulcer, Seizures ([facility]) (1997), SOB (shortness of breath) on exertion, Subchondral insufficiency fracture of condyle of left femur ([facility]) ([facility]), Vertigo, Vision changes, and Visualdisturbance. He has no past medical history of Malignant hyperthermia, Motion sickness, PONV (postoperative nausea and vomiting), or Sleep apnea. PAST SURGICAL HISTORY He has a past surgical history that includes Hernia repair (1979); Cataract extraction, bilateral (Bilateral, 2017); Thyroidectomy (12/27/2019); and Knee arthroscopy (Bilateral). MEDICATIONS He has a current medication list which includes the following prescription(s): hydrocodone-acetaminophen, advair hfa, albuterol hfa, aspirin, capsaicin, cetirizine, cholecalciferol, clobetasol, cyanocobalamin, cyclobenzaprine, donepezil, flovent hfa, gabapentin, levothyroxine, lidocaine, magnesium o xide/magnesium, melatonin, multivit-min/ferrous fumarate, oxybutynin xl, pantoprazole dr, rosuvastatin, senna-docusate, tamsulosin, tizanidine, triamcinolone, turmeric root extract, and gemtesa. ALLERGIES He has no known allergies. SOCIAL HISTORY He reports that he quit smoking about 57 years ago. His smoking use included cigarettes. He startedsmoking about 58 years ago. He has never been exposed to tobacco smoke. He has never used smokelesstobacco. He reports current drug use. Drug: Alcohol. Patient reports consuming alcoholic drinks monthly or less, with a daily consumption of drinks. Patient also reports less than monthly occurrencesof consuming 6 or more alcoholic drinks at one occasion. FAMILY HISTORY Family History Problem Relation Age of Onset Heart failure Other Family history of Congestive heart failure; Heart disease Other Family history of Heart disease; Osteoarthritis Other Family history of Osteoarthritis; Osteoporosis Other Family history of Osteoporosis; Heart attack Mother Heart attack Father Heart attack Sister REVIEW OF SYSTEMS Review of Systems Constitutional: Negative for diaphoresis and unexpected weight change. HENT: Negative for drooling, ear pain and sore throat. Eyes: Negative for photophobia, discharge and visual disturbance. Respiratory: Negative for apnea, choking and shortness of breath. Cardiovascular: Negative for chest pain. Gastrointestinal: Negative for abdominal distention, abdominal pain and vomiting. Endocrine: Negative for cold intolerance and heat intolerance. Genitourinary: Negative for dysuria and flank pain. Musculoskeletal: Positive for gait problem. Negative for neck pain. Skin: Negative for color change and rash. Allergic/Immunologic: Negative for immunocompromised state. Neurological: Positive for speech difficulty and weakness. Negative for dizziness. Left-sided hemiparesis Hematological: Negative for adenopathy. Psychiatric/Behavioral: Negative for decreased concentration and hallucinations. Objective PHYSICAL EXAM Ht 177.8 cm (5' 10 ) BMI 27.26 kg/m?? Ortho Exam Patient is alert and oriented times 3, in no acute distress Head normocephalic atraumatic Pupils equally round reactive to light and accommodation. Extraocular muscles intact Oropharynx clear with moist mucosa Neck supple without lymphadenopathy Lungs normal inspiratory and expiratory effort without audible wheeze. Clear to auscultation bilaterally Heart regular rate and rhythm normal S1-S2 Abdomen soft non tender non distended with positive bowel sounds Exam of the left knee demonstrates 1+ joint effusion. No redness or warmth. Varus attitude is present. He can extend fully with some effort, can not sustained a prolonged quad contraction. Flexion further is to 115??. No significant laxity with varus or valgus testing. Palpable 2+ DP pulses. 4/5 str ength in EHL and gastrocsoleus complex. Right knee has a well-healed incision. No joint effusion. He has full extension with flexion to 120??. No laxity with varus or valgus testing. He has a good quad set with no weakness. 2+ DP and PT pulses. Left upper extremity has no motor function there but does appear to have intact sensation. There isatrophy around the shoulder girdle. He is not able to wiggle his fingers or actively move at the elbow. He has swelling into his hand. Passively I can squeeze his hand down to his fingertips touchinghis palm and extend them fully at the MCP joint. Elbow motion passively is 15-100 degrees. 2+ radial pulse. REVIEW OF X-RAYS/STUDIES/LABS Radiographs of the left knee are again reviewed and interpreted these demonstrate near [id number] and patellofemoral joint space narrowing with subchondral sclerosis consistent with grade 3 osteoarthritis Assessment/Plan Abrahan was seen today for pre-op visit and follow-up. Diagnoses and all orders for this visit: Primary osteoarthritis of both knees Hx of total knee replacement, right Hemiparesis affecting left side as late effect of cerebrovascular accident (CVA) ([facility]) ([facility]) Plan I discussed the nature of the patient's arthritis in clinic today. The patient has tried conservative treatment with minimal relief. We discussed LEFT total knee replacement in clinic today. This is considered a Major surgical procedure with significant potential risks. Risks and benefits of the surgery were discussed with the patient. These include but are not limited to bleeding, infection, damage to surrounding structures including nerves, vessels, and ligaments, fracture, post-operative stiffness, failure of implants, post- operative skin healing issues necessitating further surgery, DVT, PE, stroke, heart attack, and . Specific to this surgery, I discussed the expectations of lateral knee numbness or parasthesias, difficulty with kneeling, noise generation by the knee replacement, and occasional pain. I also explained that in some series of patients in the research literature, up to 20% of patients are dissatisfied with their total knee arthroplasty. Patient understands theserisks and agreed to proceed with the surgery as described above. All questions and concerns were addressed with the patient prior to surgical consent being established in the office today. The patient will follow up for surgery. George Sepulveda MD documented in this encounter Plan of Treatment Upcoming Encounters Date Type Department Care Team (Latest Contact Info) Description 10/23/2024 10:[address] Hospital Encounter [facility] Operating Room [address] [place] [id number] [place] [id number] [place] [id number] 10/23/2024 10:00 [address] - 10/23/2024 1:[address] Surgery [facility] Operating Room [address] [place] [id number] [place] [id number] [address] ARTHROPLASTY TOTAL KNEE LEFT Scheduled Procedures Name Priority Associated Diagnoses Date/Ti me ARTHROPLASTY TOTAL KNEE left knee osteoarthritis 10/23/2024 10:[address] ESOPHAGOGASTRODUODENOSCOPY Dysphagia, unspecified type documented as of this encounter Visit Diagnoses Diagnosis Primary osteoarthritis of both knees- Primary Hx of total knee replacement, right Hemiparesis affecting left side as late effect of cerebrovascular accident (CVA) (CMS/HCC) ([facility]) documented in this encounter Care Teams Glass Cut Off Tender Relationship Specialty Start Date End Date Wolfgang Serrano MD PCP - General Family Medicine 05/05/23 08/02/24 Unknown, Notinfile 03/12/22 [place] [address] [facility] [address] [place] [address] 03/12/22 Chuy Enriquez MD [address] [facility] [address] [place], [place] [id number] Consulting Physician Pulmonary Disease 10/13/23 Luis Felipe Cedillo MD [address] [facility] [address] [place] [address] Consulting Physician Gastroenterology 10/13/23 Marlene Thornton MD [address] [facility] [address] [place] [address] Surgeon Vascular Surgery 11/10/23 documented as of this encounter
--- OUTSIDE RECORDS SUMMARY | 2024-10-11 01:52 | XMS_ITS | Encounter Summary ---
Author Organization [facility] Address [address] [place] [address] Phone Care Team Providers Care Crane Engineer Name Role Phone Wolfgang Serrano MD Primary Care Provider Unknown, Notinfile Unavailable Unavailable Santino Funk MD Unavailable Chuy Enriquez MD Unavailable [phone] Luis Felipe Cedillo MD Unavailable Marlene Thornton MD Unavailable Reason for Visit * Reason Onset Date Comments GI Preprocedure 05/09/2024 Encounter Details Date Type Department Care Team (Late st Contact Info) Description 05/09/2024 Telephone [facility] [address] [place] [address] Medical Office Building [address], [address] [place] [address] Jenni Eddy RN GI Preprocedure Social History Tobacco Use Types Packs/Day Years [...] materials from doctor or pharmacy Sometimes 03/08/2024 [facility] Utilities Answer Date Recorded In [...] Recorded Patient Health Questionnaire-2 Score 0 01/06/2024 [facility] - Occupational Stress [...] on file Legal 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 Will reach out to patient in July for August timeframe with CPAP prior to MOBAP procedure. Reminder set. documented in this encounter Plan of Treatment Upcoming Encounters Date Type Department Care Team (Latest Contact Info) Description 10/23/2024 10:00 AM QUALITY AUDIT REPRESENTATIVE Hospital Encounter [facility] Operating Room [address] [place] [address] [place] [address] [facility] [place] [place] [address] [place], [place] [id number] 10/23/2024 10:00 AM QUALITY AUDIT REPRESENTATIVE - 10/23/2024 1:00 PM QUALITY AUDIT REPRESENTATIVE Surgery [facility] Operating Room [id number] [place] [id number] [place] [address] [id number] ARTHROPLASTY TOTAL KNEE LEFT Scheduled Procedures Name Priority Associated Diagnoses Date/Ti me ARTHROPLASTY TOTAL KNEE left knee osteoarthritis 10/23/2024 10:00 AM QUALITY AUDIT REPRESENTATIVE ESOPHAGOGASTRODUODENOSCOPY Dysphagia, unspecified type documented as of this encounter Visit Diagnoses Not on filedocumented in this encounter Care Teams Crane Engineer Relationship Specialty Start Date End Date Wolfgang Serrano MD PCP - General Family Medicine 05/05/23 08/02/24 Unknown, Notinfile 03/12/22 [place] [address] [facility] [place] [address] [place] [address] 03/12/22 Chuy Enriquez MD [address] [facility] [address] [place] [address] Consulting Physician Pulmonary Disease 10/13/23 Luis Felipe Cedillo MD [address] [facility] [address] [place] [address] Consulting Physician Gastroenterology 10/13/23 Marlene Thornton MD [address] [place] [address] Surgeon Vascular Surgery 11/10/23 documented as of this encounter
--- OUTSIDE RECORDS SUMMARY | 2024-10-11 01:52 | XMS_ITS | Encounter Summary ---
Author Organization [facility] Healthcare Address [address] [place] [address] Care Team Providers Care Abrasive Worker Name Role Phone Wolfgang Serrano MD Primary Care Provider Unknown, Notinfile Unavailable Unavailable Santino Funk MD Unavailable Chuy Enriquez MD Unavailable Luis Felipe Cedillo MD Unavailable [phone] Marlene Thornton MD Unavailable Encounter Details Date Type Department Care Team (Latest Contact Info) Description 06/14/2024 8:45 AM CDT Pre-Admission Testing [facility] Pre Anesthesia Testing [address] [place] [address] Pre-op testing (Primary Dx) Anesthesia Record Procedure Summary Procedure Name Responsible [...] In the past 12 months has e [employer], gas, oil, or water [employer] threatened to shut off services in your [...] often do you attend chur ch or sikhism services? 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 Gender Identity Not on file Sexual Orientation Not on file documented as of this encounter Last Filed Vital Signs Vital Sign Reading Time Taken Comments Blood Pressure 120/77 06/14/2024 9:46 AM CDT Pulse - - Temperature 36.6 ??C (97.9 ??F) 06/14/2024 9:46 AM CD T Respiratory Rate 18 06/14/2024 9:46 AM CDT Oxygen Saturation 97% 06/14/2024 9:46 AM CDT Inhaled Oxygen Concentration - - Weight - - Height - - Body Mass Index - - documented in this encounter Miscellaneous Notes * Perioperative Nursing Note - Madie Trujillo RN - 06/14/2024 2:32 PM CDT Epic message sent to PHILLIP Sousa and Adrienne: Abnormal labs have been routed to your inboxes, urine culture results pending. Thank you. * Pre-Procedure Instructions - Madie Trujillo RN - 06/14/2024 8:45 AM CDT We are pleased that you and your doctor have chosen [facility] for your surgery. We hope that the following information will help make your visit a pleasant one. Surgery Date: 06/26/2024 Arrive at 9:30am [facility] (look for sign reading ???[facility]?? ) [address] [place] [address] Before your surgery: Notify your doctor of ANY change in your health such as a cold, sore throat, fever, infection or a change in the problem for which you are having your surgery. Follow any instructions given to you by your doctor or surgeon. One week before surgery, 06/19/24, STOP taking: All herbal/vitamin supplements Aspirin Aleve, Advil, Motrin, Ibuprofen, Excedrin, Naproxen, Meloxicam, Diclofenac (oral & topical) Relafen, Celebrex, Ketorolac (Toradol) or other similar medications Tylenol is okay (unless it is not recommended by your physician). 24 hours before your surgery: No alcohol Hydrate yourself (water) - if no restrictions. Night before your surgery: DO NOT eat or drink anything after midnight including candy, mints, gum, chewable antacids, and cough drops. Follow surgeon's instructions for anti-bacterial shower night before and morning of surgery. Before Surgery your body must be thoroughly cleaned. Shower Instructions Using Chlorhexidine gluconate or CHG (brand name: Hibiclens): CHG helps to reduce the bacteria (germs) from the skins surface. First Clean your hair using your normal shampoo. Do this so the antiseptic soap is not washed off by your shampoo. Wash face with warm water and/or your normal soap Move away from the shower stream. Using a clean washcloth and the CHG soap, thoroughly wash from jawline down (avoid the groin area, buttocks, and open wounds). Using a second clean washcloth and CHG soap, wash your groin area, and buttocks. (Do NOT use CHG onthe genital area.) Use enough soap to thoroughly cover your body. CHG soap does not produce much lather. You may need help if some areas cannot easily be reached, such as your back. Wash with the CHG soap for 2-3 minutes then Rinse thoroughly. Dry with a clean towel. Do not use lotions, powders, creams, Vaseline, makeup, or hair products after either shower. Dress in clean pajamas or clothing. Do not shave below the neck on the night before or day of surgery The night before surgery sleep on clean linen Do Not let pets sleep with you Day of surgery: You may brush your teeth and rinse your mouth out. Repeat shower ONLY take these pills with a sip of water: Pre-Surgery Instructions: Medication Instructions Advair HFA inhaler If needed albuterol HFA inhaler If needed cetirizine (ZyrTEC) If needed Flovent HFA inhaler If needed furosemide (LASIX) levothyroxine (SYNTHROID) oxybutynin XL (DITROPAN-XL) pantoprazole DR (PROTONIX) spironolactone (ALDACTONE) tamsulosin (FLOMAX) vibegron (Gemtesa) You should bring a complete, up-to-date, list of all medications on the day of your surgery/procedure, including any over the counter medications or supplements. Please note on your medication list the last time you took each medication. The healthcare team will ask for this information. Wear comfortable clothes that will not be tight over the area of your surgery If you have an implantable device with a remote, bring the remote with you on the day of surgery. Leave all valuables and jewelry, (including all body piercing jewelry), hairpins, false eyelashes, and/or contact lenses at home. Please bring your photo ID, insurance cards, and medication list (including all [id number] medications) with you. Prescriptions can be filled onsite prior to discharge. Please have your co-pay available. Check in at the Registration Desk. You may have 2 visitors at a time. What to bring if you are spending the night with us: Bring toiletry items such as: robe, slippers, toothbrush, toothpaste, brush or comb. Bring contact lens, hearing aids, glass cases and denture container if you use any of these items. The hospital will provide you with a gown. Questions or concerns: If you have any questions or concerns regarding your procedure, or to cancel your surgery/procedure- contact your surgeon as soon as possible. If you have questions regarding your Pre-Admission Screen/Testing, please call Madie at . documented in this encounter Plan of Treatment Upcoming Encounters Date Type Department Care Team (Latest Contact Info) Description 10/23/2024 10:00 AM CAROUSEL ATTENDANT Hospital Encounter [facility] Operating Room [address] [place] [id number] [place] [address] [address] 10/23/2024 10:00 AM CAROUSEL ATTENDANT - 10/23/2024 1:00 PM CAROUSEL ATTENDANT Surgery [facility] Operating Room [address] [place] [address] [place] [address] [address] ARTHROPLASTY TOTAL KNEE LEFT Scheduled Procedures Name Priority Associated Diagnoses Date/Ti me ARTHROPLASTY TOTAL KNEE left knee osteoarthritis 10/23/2024 10:00 AM CAROUSEL ATTENDANT ESOPHAGOGASTRODUODENOSCOPY Dysphagia, unspecified type documented as of this encounter Procedures Procedure Name Priority Date/Time Associated Diagnosis Comments EGFR Routine 06/14/2024 9:26 AM CDT Pre-op testing DIFFERENTIAL AUTO Routine 06/14/2024 9:2 6 AM CDT Pre-op testing URINALYSIS AND REFLEX TO MICROSCOPIC AND CULTURE Routine 06/14/2024 9:26 AM CDT Pre-op testing CBC WITH AUTO DIFFERENTIAL Routine 06/14/2024 9:26 AM CDT Pre-op testing URINALYSIS, MICROSCOPIC ONLY Routine 06/14/2024 9:26 AM CDT Pre-op testing TYPE AND SCREEN Routine 06/14/2024 9:26 AM CDT Pre-op testing URINE CULTURE Routine 06/14/2024 9:26 AM CDT BASIC METABOLIC PANEL Routine 06/14/2024 9:26 AM CDT Pre-op testing documented in this encounter Results * Urine culture Urine, clean voided (06/14/2024 9:26 AM CDT) Report Final Report: Less than 100,000 colonies/mL (clinically insignificant growth based on current clinical standards) Comment:Testing performed by : [facility], [address] [place] [address] Organism (CLINICALLY INSIGNIFICANT GROWTH MARVIN Urine, clean voided 06/14/2024 9:26 AM CDT 06/14/2024 6:07 PM CDT Narrative MARVIN - 06/15/2024 8:09 PM CDT Urine culture reflexed based upon urinalysis results. Testing performed by [facility] ([phone]) us Kavitha Ramirez NP LAB MICROBIOLOGY - GENERAL ORD ERABLES Final Result MARVIN [address] Department [place] [address] * (ABNORMAL) Urinalysis, microscopic only (06/14/2024 9:26 AM CDT) WBC, ur >50(A) 0 - 5 /HPF RBC, ur 6-10(A) 0 - 2 /HPF [facility] Epithelial cells, squamous, ur 1-5 0 - 5 /HPF [facility] Mucous, ur Present(A) [facility] Calcium oxalate crystals, ur Trace(A) [facility] Culture Reflex Comment Reflex to urine culture will be performed. [facility] Urine, clean voided 06/14/2024 9:26 AM CDT 06/14/2024 1:19 PM CDT us Kavitha Ramirez TELESALES REPRESENTATIVE LAB URINE ORDERABLES Final Res ult [facility] [address] Department [place] [address] * eGFR (06/14/2024 9:26 AM CDT) eGFR 72 >=60 mL/min/1. 73 m2 Comment: Interpretive Data [...] interpretive data was last reviewed 2021. Blood 06/14/2024 9:26 AM CDT 06/14/2024 10:22 AM CDT us Kavitha Ramirez TELESALES REPRESENTATIVE LAB BLOOD ORDERABLES Final Res ult [facility] [address] [address] Department [place] [address] * Differential, auto (06/14/2024 9:26 AM CDT) Neutrophil abs 4.8 1.5 - 6.5 K/cumm Imm gran abs 0.0 0.0 - 0.1 K/cumm [facility] Lymphocyte abs 1.8 0.8 - 3.3 K/cumm [facility] Monocyte abs 0.7 0.2 - 0.8 K/cumm [facility] Eosinophil abs 0.3 0.0 - 0.5 K/cumm [facility] Basophil abs 0.1 0.0 - 0.1 K/cumm [facility] Neutrophil pct 62.5 % [facility] Comment: Interpretive Data Percent cell count reference ranges are not reported, since discordance with absolute values may lead to misinterpretation of CBC data. Current Interpretive Data was last revised on 2018. Imm gran pct 0.3 % [facility] Comment: Interpretive Data Percent cell count reference ranges are not reported, since discordance with absolute values may lead to misinterpretation of CBC data. Current Interpretive Data was last revised on 2018. Lymphocyte pct 22.9 % [facility] Comment: Interpretive Data Percent cell count reference ranges are not reported, since discordance with absolute values may lead to misinterpretation of CBC data. Current Interpretive Data was last revised on 2018. Monocyte pct 9.3 % [facility] Comment: Interpretive Data Percent cell count reference ranges are not reported, since discordance with absolute values may lead to misinterpretation of CBC data. Current Interpretive Data was last revised on 2018. Eosinophil pct 4.2 % [facility] Comment: Interpretive Data Percent cell count reference ranges are not reported, since discordance with absolute values may lead to misinterpretation of CBC data. Current Interpretive Data was last revised on 2018. Basophil pct 0.8 % [facility] Comment: Interpretive Data Percent cell count reference ranges are not reported, since discordance with absolute values may lead to misinterpretation of CBC data. Current Interpretive Data was last revised on 2018. Blood 06/14/2024 9:26 AM CDT 06/14/2024 10:18 AM CDT us Kavitha Ramirez TELESALES REPRESENTATIVE LAB BLOOD ORDERABLES Final Res ult [facility] [address] [address] Department [place] [address] * (ABNORMAL) Urinalysis reflex to microscopic and culture Urine, clean voided (06/14/2024 9:26 AM CDT) Color, ur Yellow Yellow Clarity, ur Clear Clear [facility] Specific gravity, ur 1.025 1.003 - 1.030 [facility] pH, urine 5.0 [facility] Comment: Interpretive Data ? Urine pH is affected by diet, medications, systemic acid-base disturbances, and renal tubular function. ??pH may affect urinary stone formation. ??For example, urine pH below 6.0 may help reduce the tendency for calcium phosphate stones and pH greater than 6.0 may reduce the tendency for uric acid stone formation. Source: [facility] Current Interpretive Data was last revised on [...] will be performed. [facility] Urine, clean voided 06/14/2024 9:26 AM CDT 06/14/2024 1:19 PM CDT Kavitha Ramirez NP LAB MICROBIOLOGY - GENERAL ORD ERABLES Final Result Performing Organization Address [facility] Co de Phone Number MARVIN FISHER [address] [address] [facility] [place], [place] [id number] * Type and screen (06/14/2024 9:26 AM CDT) Pathologist [facility] Sarah, indirect Negative ABO Rh O Negative [facility] Blood 06/14/2024 9:26 AM CDT 06/14/2024 10:21 AM CDT Narrative [facility] - 06/14/2024 11:12 AM CDT Is this test being ordered in advance for a procedure?->Yes Expected date of procedure:->06/26/24 Has the patient been transfused in the past 3 months?->Unknown Kavitha Ramirez NP LAB BLOOD BANK TEST ORDERABLES Final Result Performing Organization Address [facility] de Phone Number MARVIN FISHER [address] [address] Department [place] [address] * (ABNORMAL) CBC with auto differential (06/14/2024 9:26 AM CDT) [facility] WBC 7.6 3.8 - 9.9 K/cumm Hgb 13.6 13.0 - 17.5 g/dL [facility] Hct 42.1 38.9 - 50.3 % [facility] Plt 239 150 - 400 K/cumm [facility] MPV 10.7 9.1 - 12.3 fL [facility] RBC 4.44 4.30 - 5.80 M/cumm [facility] MCV 94.8 81.3 - 96.4 fL [facility] MCH 30.6 27.1 - 33.3 pg [facility] MCHC 32.3 32.3 - 35.7 g/dL [facility] RDW CV 15.8(H) 11.1 - 14.9 % [facility] RDW SD 55.3(H) 35.7 - 48.1 fL [facility] NRBC abs 0.00 0.00 - 0.01 K/cumm [facility] Blood 06/14/2024 9:26 AM CDT 06/14/2024 10:18 AM CDT Kavitha Ramirez TELESALES REPRESENTATIVE LAB BLOOD ORDERABLES Final Res ult [facility]VIN FISHER [address] [address] Department [place] [address] * Basic metabolic panel (06/14/2024 9:26 AM CDT) Pathologist [facility] Sodium 138 135 - 145 mmol/L Potassium, pl 4.1 3.3 - 4.9 mmol/L [facility] Chloride 105 97 - 110 mmol/L [facility] CO2 22 22 - 32 mmol/L [facility] Anion gap 11 2 - 15 mmol/L [facility] BUN 14 6 - 25 mg/dL [facility] Creatinine 1.05 0.80 - 1.30 mg/dL [facility] Glucose 112 70 - 199 mg/dL [facility] Comment: Interpretive Data Fasting glucose >/= 126 [...] interpretive data was last revised 2022. Calcium 9.7 8.5 - 10.3 mg/dL [facility] Blood 06/14/2024 9:26 AM CDT 06/14/2024 10:22 AM CDT Kavitha Ramirez NP LAB BLOOD ORDERABLES Final Res ult MARVIN FISHER [address] [address] Department [place] [address] documented in this encounter Visit Diagnoses Diagnosis Pre-op testing- Primary Unspecified pre-operative examination documented in this encounter Discontinued Medications Medication Sig Discontinue Reason Start Date End Da te aspirin 81 mg chewable tablet Take 1 tablet (81 mg total) by mouth daily Duplicate order 01/07/2024 06/14/2024 rosuvastatin (CRESTOR) 40 mg tabletIndications:Second oral Stroke Prevention Take 1 tablet (40 mg total) by mouth daily Duplicate order 01/07/2024 06/14/2024 lidocaine (ASPERCREME) 4 % adhesive patch,medicated Place 1 patch on the skin daily for 12 days Therapy completed 10/03/2022 06/14/2024 documented as of this encounter Historical Medications * This list may reflect changes made after this encounter. pantoprazole DR (PROTONIX) 40 mg EC tablet Take 1 tablet (40 mg total) by mouth daily pravastatin (PRAVACHOL) 10 mg tablet Take 1 tablet (10 mg total) by mouth daily rosuvastatin (CRESTOR) 40 mg tablet Take 1 tablet (40 mg total) by mouth daily aspirin 81 mg enteric coated tablet Take 1 tablet (81 mg total) by mouth daily spironolactone (ALDACTONE) 25 mg tablet Take 1 tablet (25 mg total) by mouth daily furosemide (LASIX) 20 mg tablet Take 1 tablet (20 mg total) by mouth daily 04/10/2024 scopolamine 1 mg over 3 days patch 3 day APPLY WITH DISC BEHIND EAR REPLACE EVERY 3 DAYS 06/02/2024 added in this encounter Care Teams Abrasive Worker Relationship Specialty Start Date End Date Wolfgang Serrano MD PCP - General Family Medicine 05/05/23 08/02/24 Unknown, Notinfile 03/12/22 [place] [address] [place] [address] 03/12/22 Chuy Enriquez MD [address] [place] [address] Consulting Physician Pulmonary Disease 10/13/23 Luis Felipe Cedillo MD [address] [facility] [address], [place] [address] Consulting Physician Gastroenterology 10/13/23 Marlene Thornton MD [address] [facility] [address], [place] [address] Surgeon Vascular Surgery 11/10/23 documented as of this encounter
--- OUTSIDE RECORDS SUMMARY | 2024-10-11 01:52 | XMS_ITS | Encounter Summary ---
Author Organization [facility] Healthcare Address [address] [place] [address] Care Team Providers Care Senior Media Buyer Name Role Phone Wolfgang Serrano MD Primary Care Provider Unknown, Notinfile Unavailable Unavailable Santino Funk MD Unavailable Chuy Enriquez MD Unavailable Luis Felipe Cedillo MD Unavailable [phone] Marlene Thornton MD Unavailable Reason for Referral * Procedure (Routine) - Authorized Specialty Diagnoses / Procedures Referred By Contac t Referred To Contact Diagnoses Biceps tendinitis of left upper extremity Hemiparesis affecting left side as late effect of cerebrovascular accident (CVA) (CMS/HCC) ([facility]) Procedures Large Joint (Hip, Knee, Shoulder) Injection: [place]rom[place] [id number] [address] Phone: tel: fax: [facility] Medical Group Referral ID Status Reason Start Date Expiration Date V isits Requested Visits Authorized [id number] Authorized 03/21/2024 04/20/2025 1 1 * Procedure (Routine) - Authorized Specialty Diagnoses / Procedures Referred By Contac t Referred To Contact Diagnoses Primary osteoarthritis of both knees Procedures Large Joint (Hip, Knee, Shoulder) [place]jection: [place] [address] [address] Phone: tel: fax: [facility] Medical Group Referral ID Status Reason Start Date Expiration Date V isits Requested Visits Authorized [id number] Authorized 03/21/2024 04/20/2025 1 1 Reason for Visit * Reason Comments Follow-up Injections Injections Encounter Details Date Type Department Care Team (Latest Contact Info) Description 03/21/2024 8:30 AM CDT Office Visit [facility] Medical Group Orthopedics and Sports Medicine at [address] [address] [place] [id number] [place], [place] [id number] Primary osteoarthritis of both knees (Primary Dx); Hx of total knee replacement, right; Biceps tendinitis of left upper extremity; Hemiparesis affecting left side as late effect of cerebrovascular accident (CVA) (CMS/[facility]) ([facility]) Social History Tobacco Use Types Packs/Day Years Used Date Smoking Tobacco: Former Cigarettes 1 966 - 1966 Smokeless Tobacco: Never Alcohol Use [...] materials from doctor or pharmacy Sometimes 03/08/2024 [facility] Utilities Answer Date Recorded In the past 12 months has e [employer], gas, oil, or water [employer] threatened to shut off services in your [...] often do you attend chur ch or zoroastrianism services? More than 4 times per year 12/16/2023 Do you belong to any clubs o r organizations such as religion groups, unions, fraternal or athletic groups, or [...] Recorded Patient Health Questionnaire-2 Score 0 01/06/2024 [facility] - Occupational [...] place to sleep or slept in a penitentiary (including now)? No 12/16/2023 Personal Safety Answer Date Recorded Have you ever been in or are you currently in a harmful physical or emotional relationship or is someone making you feel afraid or unsafe? 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 Gender Identity Not on file Sexual Orientation Not on file documented as of this encounter Last Filed Vital Signs Vital Sign Reading Time Taken Comments Blood Pressure - - Pulse - - Temperature - - Respiratory Rate - - Oxygen Saturation - - Inhaled Oxygen Concentration - - Weight - - Height 177.8 cm (5' 10 ) 03/21/2024 8:50 AM CDT Body Mass Index - - documented in this encounter Progress Notes * George Sepulveda MD - 03/21/2024 8:30 AM CDTAssociated Order(s): Large Joint (Hip, Knee, Shoulder) Injection: L knee; Large Joint (Hip, Knee, Sh oulder) Injection: L subacromial bursa Post-Procedure Diagnose(s): Primary osteoarthritis of both knees; Biceps tendinitis of left upper extremity; Hemiparesis affecting left side as late effect of cerebrovascular accident (CVA) ([facility])([facility]) FOLLOW UP VISIT Subjective CHIEF COMPLAINT He had concerns including Follow-up and Injections of the Left Knee and Injections of the Left Shoulder. HISTORY OF PRESENT ILLNESS Patient returns today for follow-up evaluation of his left shoulder and left knee. He continues to report pain and weakness in his extremities. He would like to undergo left total knee arthroplasty and is currently in rehabilitation for his left sided hemiparesis after a cerebrovascular accident. Patient states that the pain in his left knee and instability is affecting his overall ability to rehabilitate from his stroke. His is present and she is worried that he will deteriorate further if he undergoes a surgical procedure. Pain Assessment Pain Assessment: 0-10 Pain Score: 5 - Moderate pain Pain Location: Knee Pain Orientation: Left Pain Descriptors: Aching, Discomfort, Shooting, Sore, Tightness Pain Frequency: Constant/continuous Multiple Pain Sites: Two Pain 2 Pain Score 2: 5 - Moderate pain Pain Orientation 2: Left Pain Descriptors 2: Aching, Discomfort, Sore, Shooting, Tingling, Tightness MEDICATIONS He has a current medication list which includes the following prescription(s): cyclobenzaprine, advair hfa, albuterol hfa, aspirin, capsaicin, cetirizine, cholecalciferol, clobetasol, cyanocobalamin,donepezil, flovent hfa, gabapentin, levothyroxine, lidocaine, magnesium oxide/magnesium, melatonin,multivit- min/ferrous fumarate, oxybutynin xl, pantoprazole dr, rosuvastatin, senna- docusate, tamsulosin, tizanidine, triamcinolone, and turmeric root extract. REVIEW OF SYSTEMS Review of Systems Constitutional: [...] Ht 177.8 cm (5' 10 ) BMI 29.70 kg/m?? Ortho Exam Exam of the left knee demonstrates 1+ [...] degrees. 2+ radial pulse. REVIEW OF X-RAYS/STUDIES/LABS Assessment/Plan Abrahan was seen today for follow-up, injections and injections. Diagnoses and all orders for this visit: Primary osteoarthritis of both knees Hx of total knee replacement, right Biceps tendinitis of left upper extremity Hemiparesis affecting left side as late effect of cerebrovascular accident (CVA) ([facility]) ([facility]) Large Joint (Hip, Knee, Shoulder) Injection: L knee Performed by: George Sepulveda MD Authorized by: George Sepulveda MD Large Joint Injection/Aspiration: Verbal consent obtained: Yes Supporting Documentation: Indications: Pain and joint swelling Procedure Details: Location: Knee Site: L knee Needle Size: 22 G Approach: Anterolateral Medications: 4 mL lidocaine 10 mg/mL (1 %); 80 mg methylPREDNISolone acetate 80 mg/mL Large Joint (Hip, Knee, Shoulder) Injection: L subacromial bursa Performed by: George Sepulveda MD Authorized by: George Sepulveda MD Large Joint Injection/Aspiration: Consent Given by: Patient Verbal consent obtained: Yes Supporting Documentation: Indications: Pain Procedure Details: Location: Shoulder Site: L subacromial bursa Needle Size: 22 G Approach: Posterior Medications: 4 mL lidocaine 10 mg/mL (1 %); 80 mg methylPREDNISolone acetate 80 mg/mL Patient tolerance: Patient tolerated the procedure well with no immediate complications PLAN I discussed treatment options to include continued non-operative management which would consist of physical therapy (which will be done at home) with cortisone injection. The patient will follow up on an as needed basis. We did discuss that the patient is a candidate for left knee replacement but I would like to wait 6months after his stroke to allow his brain to recover prior to undergoing anesthetic for surgery. We will see the patient back in early June and discuss surgery for his left knee at that time. George Sepulveda MD documented in this encounter Plan of Treatment Upcoming Encounters Date Type Department Care Team (Latest Contact Info) Description 10/23/2024 10:00 AM AUTOMOTIVE TEACHER Hospital Encounter [facility] Operating Room [address] [place] [address] [place] [address] [address] 10/23/2024 10:00 AM AUTOMOTIVE TEACHER - 10/23/2024 1:00 PM AUTOMOTIVE TEACHER Surgery [facility] Operating Room [address] [place] [address] [place] [address] [address] ARTHROPLASTY TOTAL KNEE LEFT Scheduled Procedures Name Priority Associated Diagnoses Date/Ti me ARTHROPLASTY TOTAL KNEE left knee osteoarthritis 10/23/2024 10:00 AM AUTOMOTIVE TEACHER ESOPHAGOGASTRODUODENOSCOPY Dysphagia, unspecified type documented as of this encounter Procedures Procedure Name Priority Date/Time Associated Diagnosis Comments [place] ARTHROCENTESIS ASPIR&/INJ MAJOR JT/BURSA W/O US Routine 03/21/2024 8:30 AM CDT Biceps tendinitis of left upper extremity Hemiparesis affecting left side as late effect of cerebrovascular accident (CVA) ([facility]/HCC) (HCC) [place] ARTHROCENTESIS ASPIR&/INJ MAJOR JT/BURSA W/O US Routine 03/21/2024 8:30 AM CDT Primary osteoarthritis of both knees documented in this encounter Results * [place] ARTHROCENTESIS ASPIR&/INJ MAJOR JT/BURSA W/O US (03/21/2024 8:30 AM CDT) Narrative George Sepulveda MD - 03/21/2024 8:30 AM CDT George Sepulveda MD ? 03/21/2024 11:30 AM Large Joint (Hip, Knee, Shoulder) Injection: L subacromial bursa Performed by: George Sepulveda MD Authorized by: George Sepulveda MD ?? Large Joint Injection/Aspiration: ??Consent Given by: ??Patient ??Verbal consent obtained: Yes ?? Supporting Documentation: ??Indications: ??Pain Procedure Details: ??Location: ??Shoulder ??Site: ??L subacromial bursa ??Needle Size: ??22 G ??Approach: ??Posterior ??Medications: ??4 mL lidocaine 10 mg/mL (1 %); 80 mg methylPREDNISolone acetate 80 mg/mL ??Patient tolerance: ??Patient tolerated the procedure well with no immediate complications us George Sepulveda MD IN CLINIC/BEDSIDE ORDERAB LES Final Result * [place] ARTHROCENTESIS ASPIR&/INJ MAJOR JT/BURSA W/O US (03/21/2024 8:30 AM CDT) Narrative George Sepulveda MD - 03/21/2024 8:30 AM CDT George Sepulveda MD ? 03/21/2024 11:30 AM Large Joint (Hip, Knee, Shoulder) Injection: L knee Performed by: George Sepulveda MD Authorized by: George Sepulveda MD ?? Large Joint Injection/Aspiration: ??Verbal consent obtained: Yes ?? Supporting Documentation: ??Indications: ??Pain and joint swelling Procedure Details: ??Location: ??Knee ??Site: ??L knee ??Needle Size: ??22 G ??Approach: ??Anterolateral ??Medications: ??4 mL lidocaine 10 mg/mL (1 %); 80 mg methylPREDNISolone acetate 80 mg/mL us George Sepulveda MD IN CLINIC/BEDSIDE ORDERAB LES Final Result documented in this encounter Visit Diagnoses Diagnosis Primary osteoarthritis of both knees- Primary Hx of total knee replacement, right Biceps tendinitis of left upper extremity Hemiparesis affecting left side as late effect of cerebrovascular accident (CVA) (CMS/[facility]) ([facility]) documented in this encounter Administered Medications Inactive Administered Medications - up to 3 most recent administrations Medication Order MAR Action Action Date Dose Rate Site lidocaine (XYLOCAINE) 10 mg/mL (1 %) injection 4 mL 4 mL, One-Time Injection, Starting on Wed03/21/24 at 0830, For 1 dose, Indications: Administration of Local AnesthesiaIndications:Adminis tration of Local Anesthesia Given 03/21/2024 8:30 AM CDT 4 mL Left Knee lidocaine (XYLOCAINE) 10 mg/mL (1 %) injection 4 mL 4 mL, One-Time Injection, Starting on Wed03/21/24 at 0830, For 1 dose, Indications: Administration of Local AnesthesiaIndications:Adminis tration of Local Anesthesia Given 03/21/2024 8:30 AM CDT 4 mL Left Shoulder methylPREDNISolone acetate (DEPO-medrol) injection 80 mg 80 mg, intra-articular, One-Time Injection, Starting on Wed03/21/24 at 0830, For 1 doseIndications:Primary osteoarthritis of both knees Given 03/21/2024 8:30 AM CDT 80 mg Left Knee methylPREDNISolone acetate (DEPO-medrol) injection 80 mg 80 mg, intra-articular, One-Time Injection, Starting on Wed03/21/24 at 0830, For 1 doseIndications:Biceps tendinitis of left upper extremity,Hemiparesis affecting left side as late effect of cerebrovascular accident (CVA) (CMS/[facility]) ([facility]) Given 03/21/2024 8:30 AM CDT 80 mg Left Shoulder documented in this encounter Historical Medications * This list may reflect changes made after this encounter. cyclobenzaprine (FLEXERIL) 5 mg tablet Take 1 tablet (5 mg total) by mouth 3 (three) times a day as needed 02/24/2024 added in this encounter Care Teams Senior Media Buyer Relationship Specialty Start Date End Date Wolfgang Serrano MD PCP - General Family Medicine 05/05/23 08/02/24 Unknown, Notinfile 03/12/22 [place] [address] [facility] [address] [place] [address] 03/12/22 Chuy Enriquez MD [address] [facility] [address] [place] [address] Consulting Physician Pulmonary Disease 10/13/23 Luis Felipe Cedillo MD [address] [facility] [address] [place] [address] Consulting Physician Gastroenterology 10/13/23 Marlene Thornton MD [address] [facility] [address] [place] [address] Surgeon Vascular Surgery 11/10/23 documented as of this encounter
--- OUTSIDE RECORDS SUMMARY | 2024-10-11 01:52 | XMS_ITS | Encounter Summary ---
Author Organization [facility] Address [address] [place] [address] Phone Care Team Providers Care Necktie Centralizing Machine Operator Name Role Phone Wolfgang Serrano MD Primary Care Provider Unknown, Notinfile Unavailable Unavailable Santino Funk MD Unavailable [phone] Chuy Enriquez MD Unavailable Luis Felipe Cedillo MD Unavailable [phone] Marlene Thornton MD Unavailable [phone] Reason for Visit * Reason Onset Date Comments GI Preprocedure 04/28/2024 Encounter Details Date Type Department Care Team (Late st Contact Info) Description 04/28/2024 Telephone [facility] Gastroenterology [address] [place] [address] Medical Office Building [address], [address] [place] [address] Jenni Eddy RN GI Preprocedure [...] materials from doctor or pharmacy Sometimes 03/08/2024 [facility] Utilities Answer Date Recorded In the past [...] often do you attend chur ch or oriental orthodox services? 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 Unable to reach patient at this time, unable to leavemessage on machine. ----- Message from Nurse Jenni Diaz sent at 02/17/2024 11:27 AM CDT ----- Regarding: EGD FLIP AR prior to April 20 Can we schedule him for EGD with endoflip with me before his appointment in April please. Maybe in March? I worry he is not a good POEM candidate documented in this encounter Plan of Treatment Upcoming Encounters Date Type Department Care Team (Latest Contact Info) Description 10/23/2024 10:00 AM VACATION SALES ADVISOR Hospital Encounter [facility] Operating Room [address] [place] [address] [place] [address] [phone] 10/23/2024 10:00 AM VACATION SALES ADVISOR - 10/23/2024 1:00 PM VACATION SALES ADVISOR Surgery [facility] Operating Room [address] [place] [address] [place] [address] [phone] ARTHROPLASTY TOTAL KNEE LEFT Scheduled Procedures Name Priority Associated Diagnoses Date/Ti nm ARTHROPLASTY TOTAL KNEE left knee osteoarthritis 10/23/2024 10:00 AM VACATION SALES ADVISOR ESOPHAGOGASTRODUODENOSCOPY Dysphagia, unspecified type documented as of this encounter Visit Diagnoses Not on filedocumented in this encounter Care Teams Necktie Centralizing Machine Operator Relationship Specialty Start Date End Date Wolfgang Serrano MD PCP - General Family Medicine 05/05/23 08/02/24 Unknown, Notinfile 03/12/22 [place] [address] [facility] [address] [place] [address] 03/12/22 Chuy Enriquez MD [address] [facility] [address] [place] [address] Consulting Physician Pulmonary Disease 10/13/23 Luis Felipe Cedillo MD [address] [facility] [address] [address] Consulting Physician Gastroenterology 10/13/23 Marlene Thornton MD [address] [facility] [address] [address] Surgeon Vascular Surgery 11/10/23 documented as of this encounter
--- OUTSIDE RECORDS SUMMARY | 2024-10-11 01:52 | XMS_ITS | Encounter Summary ---
Author Organization [facility] Healthcare Address [address] [place] [address] Care Team Providers Care Tapper Balance Wheel Screw Hole Name Role Phone Wolfgang Serrano MD Primary Care Provider [phone] Unknown, Notinfile Unavailable Unavailable Santino Funk MD Unavailable Chuy Enriquez MD Unavailable Luis Felipe Cedillo MD Unavailable [phone] Marlene Thornton MD Unavailable Reason for Visit * Auth/Cert (Routine) Specialty Diagnoses / Procedures Referred By Contac t Referred To Contact Referral ID Status Reason Start Date Expiration Date Visits Re quested Visits Authorized [id number] 1 60 Encounter Details Date Type Department Care Team (Late st Contact Info) Description 03/03/2024 9:00 AM CDT Home Care Visit [facility] [address] [address] [address] [place] [address] Sarah Paulino COTA OT HOME VISIT Social History Tobacco Use Types Packs/Day Years Used Date Smoking Tobacco: Former Cigarettes 1 1966 Smokeless Tobacco: Never Alcohol Use Standard Drinks/Week Comments Yes 1 (1 standard drink = 0.6 oz pur e alcohol) OASIS D0700: Social Isolation Answer Da te Recorded Frequency of experiencing loneliness or isolatio n Never 01/09/2024 OASIS A1250: Transportation Answer Date Recorded Lack of Transportation (Medical) No 01/09/2024 Lack of Transportation (Non-Medical) No 01/09/2024 Patient Unable or Declines to Respond No 01/09/2024 OASIS B1300: Health Literacy Answer Keny e Recorded Frequency of needing help to read materials from doctor or pharmacy Sometimes 01/09/2024 [facility] Utilities Answer Date Recorded In the [...] Recorded Patient Health Questionnaire-2 Score 0 01/06/2024 [facility] [place] of Occupat ional Health - Occupational Stress [...] place to sleep or slept in a prison (including now)? No 12/16/2023 Personal Safety Answer Date Recorded Have you ever been in or are you currently in a harmful physical or emotional relationship or is someone making you feel afraid or unsafe? Denies 12/15/2023 Sex and Gender Information Value Date Recorded Sex Assigned at Not on file Legal Sex Male 3:25 PM ENVIRONMENTAL PROGRAMS MANAGER Gender Identity Not on file Sexual Orientation Not on file documented as of this encounter Last Filed Vital Signs Vital Sign Reading Time Taken Comments Blood Pressure 130/74 03/03/2024 10:05 AM CDT Pulse 81 03/03/2024 10:05 AM CDT Temperature 37 ??C (98.6 ??F) 03/03/2024 10:05 AM CDT Respiratory Rate 18 03/03/2024 10:05 AM CDT Oxygen Saturation 96% 03/03/2024 10:05 AM CDT Inhaled Oxygen Concentration - - Weight - - Height - - Body Mass Index - - documented in this encounter Miscellaneous Notes * Home Health Visit Narrative - Sarah Paulino COTA - 03/03/2024 9:05 AM CDT Supervising OTR scheduled for discharge visit next week. Pt and pt's spouse aware and in agreement with next OT visit/upcoming discharge. Communicated with supervising OTR re: pt's current status, goals and d/c planning. * Home Health Plan for Next Visit - Sarah Paulino COTA - 03/03/2024 9:05 AM CDT Reason for today's visit: L UE PROM/SROM exercises, positioning of L UE, safe techniques for completing ADL/IADLs and transfers Discussed plan of care with pt and pt in agreement with POC Discharge planning: plan to transition to outpatient after home care discharges Plan for next visit: Supervising OTR scheduled for d/c visit next week. Pt and pt's spouse aware and in agreement with upcoming OT discharge. documented in this encounter Plan of Treatment Upcoming Encounters Date Type Department Care Team (Latest Contact Info) Description 10/23/2024 10:00 AM ENVIRONMENTAL PROGRAMS MANAGER Hospital Encounter [facility] Operating Room [address] [place] [address] [place] [address] [address] 10/23/2024 10:00 AM ENVIRONMENTAL PROGRAMS MANAGER - 10/23/2024 1:00 PM ENVIRONMENTAL PROGRAMS MANAGER Surgery [facility] Operating Room [address] [place] [address] [place] [address] [address] ARTHROPLASTY TOTAL KNEE LEFT Scheduled Procedures Name Priority Associated Diagnoses Date/Ti me ARTHROPLASTY TOTAL KNEE left knee osteoarthritis 10/23/2024 10:00 AM ENVIRONMENTAL PROGRAMS MANAGER ESOPHAGOGASTRODUODENOSCOPY Dysphagia, unspecified type documented as of this encounter Visit Diagnoses Not on filedocumented in this encounter Home Health Visit - Care Plan Visit Details Visit Type -OT Home Visit Discipline -Occupational Therapy Problems Problem Description Start Date Status Goals Interventions Homebound Status Disciplines: Skilled Disciplines Patient's homebound status 01/09/2024 Active 1 goal linked to scheduled/docume nted intervention 1 goal intervention scheduled/documen ana in this visit Monitor patient's vital signs every home health visit Disciplines: SN, PT, OT, MERCURY PURIFIER, ORGANIC GARDENING TEACHER, Skilled Disciplines Monitor patient's vital signs every home health visit. 01/09/2024 Active 1 goal linked to scheduled/docume nted intervention 1 goal intervention scheduled/documen ana in this visit Infection Prevention Disciplines: Skilled Disciplines Infection Prevention 01/09/2024 Active 1 goal linked to scheduled/docume nted intervention 2 goal interventions scheduled/documen ana in this visit Safety concerns Disciplines: Skilled Disciplines Alteration in safety 01/09/2024 Active 1 goal linked to scheduled/docume nted intervention 2 goal interventions scheduled/documen ana in this visit DVT Prevention and Management Disciplines: Skilled Disciplines Management of anticoagulation therapy 01/09/2024 Active 1 goal linked to scheduled/docume nted intervention 2 goal interventions scheduled/documen ana in this visit Pain Disciplines: Core Disciplines Alteration in comfort 01/09/2024 Active 1 goal linked to scheduled/docume nted intervention 1 goal intervention scheduled/documen ana in this visit OT Stroke/CVA Disciplines: Occupational Therapy After care related to stroke/CVA 01/14/2024 Active - 1 problem intervention scheduled/documen ana in this visit OT Impaired UE Function and/or Fine Motor Skills Disciplines: Occupational Therapy Impaired functional use of upper extremity and hands 01/14/2024 Active - 3 problem interventions scheduled/documen ana in this visit OT Impaired IADLs Disciplines: Occupational Therapy Impaired independence in house management/homemaki ng activities 01/14/2024 Active - 1 problem intervention scheduled/documen ana in this visit OT Impaired Functional Mobility/Balanc e Disciplines: Occupational Therapy Impaired functional mobility/balance 01/14/2024 Active - 3 problem interventions scheduled/documen ana in this visit OT Impaired ADLs Disciplines: Occupational Therapy Impaired independence in self-care, ADLs. 01/14/2024 Active - 1 problem intervention scheduled/documen ana in this visit Goals Goal Associated Problem Outcome Goal Met? Visit Notes Patient receives care at the most appropriate care setting Description: Patient receives care at the most appropriate care setting. Homebound Status No Measure vital signs during every home health visit during episode of care Description: Home shearing shed worker to measure vital signs during every home [...] pain has been reduced or controlled Description: Patient/caregiver/family will verbalize satisfaction with the patients level of pain and symptom control. Pain No Interventions Intervention Associated Problem/Goal Status Variance Visit Notes Homebound Status Description: Patient is homebound due to recent CVA as evidenced by left-sided weakness, need for w/c, need for AD and person assist with mobility, steps without handrail to enter / exit home, LE weakness, balance deficits, fall risk. Problem:Homebound Status Goal:Patient receives care at the most appropriate care setting Completed Patient is homebound d/t to recent CVA as evidenced by left-sided weakness, need for w/c, decreased mobility, requiring assistance to complete ADLs, fall risk. Monitor Vital Signs Description: Monitor blood pressure, [...] warmth. Problem:Infection Prevention Goal:Verbalize signs of infection Completed Educate Family on Infection Prevention Description: Instructed family on signs and symptoms of infection IE: fever, odor, change in color, increased amount of drainage, purulent drainage, warmth. Problem:Infection Prevention Goal:Verbalize signs of infection Completed Instruct Fall Prevention Description: Instruct patient/caregiver in methods to prevent falls Problem:Safety concerns Goal:Demonstrate use of safety precautions Completed Assess safety Description: Assess patient safety Problem:Safety concerns Goal:Demonstrate use of safety precautions Completed Instruct on Anticoagulation Therapy Description: Instruct patient/caregiver on anticoagulation medication regimen and signs and symptoms to report to home care agency or provider. Problem:DVT Prevention and Management Goal:Demonstrate knowledge of anticoagulant therapy Completed Instruct on the prevention of deep vein thrombosis Description: Instruct patient/caregiver on signs and symptoms, preventative measures related to DVT, and provide ongoing home support based on patient needs Problem:DVT Prevention and Management Goal:Demonstrate knowledge of anticoagulant therapy Completed Instruct on pain management techniques Description: Instruct in pharmacologic and nonpharmacologic pain management techniques. Problem:Pain Goal:Report that pain has been reduced or controlled Completed Patient/Caregiver Education/Training Description: Patient/caregiver education/ training for CVA and compensation strategies Problem:OT Stroke/CVA Completed Pt's spouse was present during today's visit - reviewed safe techniques for completing ADLs/IADLs, PROM and SROM with L UE. Positioning Description: Patient/caregiver education for proper positioning. Problem:OT Impaired UE Function and/or Fine Motor Skills Completed Instructed pt on keeping L UE supported in sling, lap tray, or on pillow to allow for good positioning and support of L UE. Pt demonstrates good understanding. Taping Description: Instruct in use of UE taping of left UE Problem:OT Impaired UE Function and/or Fine Motor Skills Completed Removed old kinesiotape from pt's L shoulder and applied new kinesiotape to pt's L shoulder. Instructed pt to remove kinesiotape if skin becomes reddened or irritated, or pt is unable to tolerate kinesiotape. Pt demonstrates good understanding. Therapeutic Exercise Description: Perform and progress therapeutic exercise. Problem:OT Impaired UE Function and/or Fine Motor Skills Completed Continued instruction with pt and pt's cg on L PROM exercises (shoulder, elbow, wrist, digit flex/ext, pro/supination, shoulder ab/adduction) to increase strength and ROM in L UE Pt receives PROM exercises 10 reps X 1 Also instructed pt on performing SROM exercises for shoulder flexion, elbow flex/ext, wrist/digit flex/ext. Pt able to perform PROM Ind'ly Instruct in house management/homemaking activities Description: Instruct patient/caregiver for improved performance with house management/homemaking activities. Problem:OT Impaired IADLs Completed Instructed pt to continue to perform kitchen mobility/light meal prep from w/c level, only standing to retrieve items from overhead cabinets and avoiding use of stove/oven, to maintain safety. Pt demonstrates Ind with making cup of coffee and retrieving items from cabinets and refrigerator, as well as use of microwave for heating food. Transfer Training Description: Instruct patient/caregiver and perform transfer training. Problem:OT Impaired Functional Mobility/Balance Completed Reviewed with pt/pt's spouse on safe technique for walk-in shower transfer using rasheed cane and shower chair (placement of shower chair, recommended use of suction cup grab bars and supervision from spouse). Pt is able to transfer in/out of walk-in shower requiring SBA/supervision, to maintain safety. Pt performs transfer from w/c to toilet Ind'ly, using RTS. Balance Activities Description: Balance Activities. Problem:OT Impaired Functional Mobility/Balance Completed Pt displays Fair standing balance while ambulating with rasheed cane and performing transfers. Instructed pt to continue to utilize rasheed cane to maintain safety with transfers and ambulation. Pt demonstrates good understanding. Assistive Devices/DME Description: Recommend and assist with obtaining assistive devices/DME. Problem:OT Impaired Functional Mobility/Balance Completed Continued recommendation on use of suction cup grab bar in walk-in shower and instructed on safe use of suction cup grab bar. Pt and pt's spouse aware of where suction cup grab bar can be obtained. ADL Instruction Description: Instruct patient/caregiver for improved ADL performance. Problem:OT Impaired ADLs Completed Reviewed safe techniques for completing bathing in walk-in shower using shower chair (sitting to perform all bathing and only standing to perform sandra area/buttocks bathing - recommended use of suction cup grab bar for stability, drying off before exiting shower and sitting to get dressed). Pt and pt's spouse demonstrate good understanding of safe techniques with completing bathing and dressing tasks and pt is able to simulate bathing and dressing tasks requiring SBA/supervision. Instructed pt's spouse to continue to provide supervision with bathing and dressing tasks. Pt's spouse demonstrates good understanding and agrees to do so. documented in this encounter Care Teams Tapper Balance Wheel Screw Hole Relationship Specialty Start Date End Date Wolfgang Serrano MD PCP - General Family Medicine 05/05/23 08/02/24 Unknown, Notinfile 03/12/22 [place] [address] [facility] [facility] [address] [place] [address] 03/12/22 Chuy Enriquez MD [address] [facility] [address] [place] [address] Consulting Physician Pulmonary Disease 10/13/23 Luis Felipe Cedillo MD [address] [facility] [address] [place] [address] Consulting Physician Gastroenterology 10/13/23 Marlene Thornton MD [address] [facility] [address] [place] [address] Surgeon Vascular Surgery 11/10/23 documented as of this encounter
--- OUTSIDE RECORDS SUMMARY | 2024-10-11 01:52 | XMS_ITS | Encounter Summary ---
Author Organization [facility] Healthcare Address [address] [place] [address] Care Team Providers Care Industrial Machinery Mechanic Name Role Phone Wolfgang Serrano MD Primary Care Provider [phone] Unknown, Notinfile Unavailable Unavailable Santino Funk MD Unavailable [phone] Chuy Enriquez MD Unavailable Luis Felipe Cedillo MD Unavailable Marlene Thornton MD Unavailable Reason for Visit * Auth/Cert (Routine) Specialty Diagnoses / Procedures Referred By Contac t Referred To Contact Referral ID Status Reason Start Date Expiration Date Visits Re quested Visits Authorized [id number] 1 60 Encounter Details Date Type Department Care Team (Late st Contact Info) Description 03/01/2024 Home Care Visit [facility] [address] [place] [address] Trini Campuzano RN SN TRIAGE ENCOUNTER Social History Tobacco Use Types Packs/Day Years [...] materials from doctor or pharmacy Sometimes 01/09/2024 [facility] Utilities Answer Date Recorded In the [...] often do you attend chur ch or muslim services? More than 4 times per year 12/16/2023 Do you belong to any clubs o r organizations such as sikh groups, unions, fraternal or athletic groups, or [...] Recorded Patient Health Questionnaire-2 Score 0 01/06/2024 [facility] [place] of Occupat ional Health - Occupational Stress [...] place to sleep or slept in a correction (including now)? No 12/16/2023 Personal Safety Answer Date Recorded Have you ever been in or are you currently in a harmful physical or emotional relationship or is someone making you feel afraid or unsafe? Denies 12/15/2023 Sex and Gender Information Value Date Recorded Sex Assigned at Not on file Legal Sex Male 3:25 PM BREASTFEEDING EDUCATOR Gender Identity Not on file Sexual Orientation Not on file documented as of this encounter Miscellaneous Notes * Triage Note - Trini Campuzano RN - 03/01/2024 10:04 AM CDT Reason for call: Inquiry about visit time Vegetable Loader: Abrahan Relationship to patient: Self Phone number of freezer person: See below Return call time: 1001 Communication details: Returned call. Spoke with Abrahan. Requested ETA for today's visit. Follow-up: Notified CM, CT, and bar turner. Requested follow up with Abrahan regarding the visit ETA. Sender: [facility] Received: 03/01/2024 10:01 AM Subject: Acct [id number] Home Care Message: ABRAHAN GTZ [phone] C [id number] 08 14 1944 RE: WHAT TIME WILL THE THERAPIST BE HERE documented in this encounter Plan of Treatment Upcoming Encounters Date Type Department Care Team (Latest Contact Info) Description 10/23/2024 10:00 AM BREASTFEEDING EDUCATOR Hospital Encounter [facility] Operating Room [id number] [place] [address] [place] [address] [address] 10/23/2024 10:00 AM BREASTFEEDING EDUCATOR - 10/23/2024 1:00 PM BREASTFEEDING EDUCATOR Surgery [facility] Operating Room [address] [address] [place] [address] [address] ARTHROPLASTY TOTAL KNEE LEFT Scheduled Procedures Name Priority Associated Diagnoses Date/Ti me ARTHROPLASTY TOTAL KNEE left knee osteoarthritis 10/23/2024 10:00 AM BREASTFEEDING EDUCATOR ESOPHAGOGASTRODUODENOSCOPY Dysphagia, unspecified type documented as of this encounter Visit Diagnoses Not on filedocumented in this encounter Home Health Visit - Care Plan Visit Details Visit Type -SN Triage Encoun ter Discipline -Correction Problems Problem Description Start Date Status Goals Interventions Homebound Status Disciplines: Skilled Disciplines Patient's homebound status 01/09/2024 Active 1 goal linked to scheduled/docume nted intervention 1 goal intervention scheduled/documen ana in this visit Monitor patient's vital signs every home health visit Disciplines: SN, PT, OT, JUNIOR MANUFACTURING ENGINEER, REAL ESTATE BRANCH MANAGER, Skilled Disciplines Monitor patient's vital signs every [...] goal intervention scheduled/documen ana in this visit Goals Goal Associated Problem Outcome Goal Met? Visit Notes Patient receives care at the most appropriate care setting Description: Patient receives care at the most appropriate care setting. Homebound Status No Measure vital signs during every home health visit during episode of care Description: Home access clinician to measure vital signs during every [...] care at the most appropriate care setting Scheduled Monitor Vital Signs Description: Monitor blood pressure, pulse, oxygen saturation, respirations Problem:Monitor patient's vital signs every home health visit Goal:Measure vital signs during every home health visit during episode of care Scheduled Educate Patient on Infection Prevention Description: Instruct [...] pain has been reduced or controlled Scheduled documented in this encounter Care Teams Industrial Machinery Mechanic Relationship Specialty Start Date End Date Wolfgang Serrano MD PCP - General Family Medicine 05/05/23 08/02/24 Unknown, Notinfile 03/12/22 [place] [address] [facility] [address] [place] [address] 03/12/22 Chuy Enriquez MD [address] [facility] [address] [place] [address] Consulting Physician Pulmonary Disease 10/13/23 Luis Felipe Cedillo MD [address] [facility] [address] [place] [address] Consulting Physician Gastroenterology 10/13/23 Marlene Thornton MD [address] [facility] [address] [address] Surgeon Vascular Surgery 11/10/23 documented as of this encounter
--- OUTSIDE RECORDS SUMMARY | 2024-10-11 01:52 | XMS_ITS | Encounter Summary ---
Author Organization [facility] Healthcare Address [address] [place] [address] Care Team Providers Care Silica Dry Press Helper Name Role Phone Wolfgang Serrano MD Primary Care Provider Unknown, Notinfile Unavailable Unavailable Santino Funk MD Unavailable Chuy Enriquez MD Unavailable Luis Felipe Cedillo MD Unavailable [phone] Marlene Thornton MD Unavailable [phone] Reason for Visit * Reason Comments Cerebrovascular Accident * Auth/Cert (Routine) Specialty Diagnoses / Procedures Referred By Contac t Referred To Contact Referral ID Status Reason Start Date Expiration Date Visits Re quested Visits Authorized [id number] 1 60 Encounter Details Date Type Department Care Team (Late st Contact Info) Description 03/02/2024 11:30 AM CDT Home Care Visit [facility] Health [address] [place] [address] Alaina Lopes PTA PT HOME VISIT Social History Tobacco Use Types Packs/Day Years Used Date Smoking Tobacco: Former Cigarettes 1 6 - 1966 Smokeless Tobacco: Never Alcohol Use [...] materials from doctor or pharmacy Sometimes 01/09/2024 [facility] Utilities Answer Date Recorded In the past 12 months has th e [employer], gas, oil, or water [employer] threatened to shut off services in your [...] often do you attend chur ch or yazidism services? More than 4 times per year 12/16/2023 Do you belong to any clubs o r organizations such as denominational groups, unions, fraternal or athletic groups, or [...] Score 0 01/06/2024 [facility] of Occupat ional Health - Occupational Stress [...] place to sleep or slept in a fci (including now)? No 12/16/2023 Personal Safety Answer Date Recorded Have you ever been in or are you currently in a harmful physical or emotional relationship or is someone making you feel afraid or unsafe? Denies 12/15/2023 Sex and Gender Information Value Date Recorded Sex Assigned at Not on file Legal Sex Male 3:25 PM RESIDENTIAL FRAMING CARPENTER Gender Identity Not on file Sexual Orientation Not on file documented as of this encounter Last Filed Vital Signs Vital Sign Reading Time Taken Comments Blood Pressure 128/68 03/02/2024 10:30 AM CDT Pulse 88 03/02/2024 10:30 AM CDT Temperature 36.2 ??C (97.1 ??F) 03/02/2024 10:30 AM C DT Respiratory Rate 18 03/02/2024 10:30 AM CDT Oxygen Saturation 96% 03/02/2024 10:30 AM CDT Inhaled Oxygen Concentration - - Weight - - Height - - Body Mass Index - - documented in this encounter Miscellaneous Notes * Home Health Plan for Next Visit - Alaina Lopes, MANAGER POST - 03/02/2024 10:53 AM CDT Reason for today's visit gait, garage steps, balance, strengthening Discuss plan of care with pt and Discharge planning for next week with progression into outpt Plan for next visit gait, garage steps, assess safety with transfers, balance pt reports has set up start date for outpatient 03/11 and will have transportation through the [facility] day institute have been working on transfers in and out of the home using SBQC and observing pt is agreeable with poc documented in this encounter Plan of Treatment Upcoming Encounters Date Type Department Care Team (Latest Contact Info) Description 10/23/2024 10:00 AM RESIDENTIAL FRAMING CARPENTER Hospital Encounter [facility] Operating Room [address] [place] [address] [place] [address] [address] 10/23/2024 10:00 AM RESIDENTIAL FRAMING CARPENTER - 10/23/2024 1:00 PM RESIDENTIAL FRAMING CARPENTER Surgery [facility] Operating Room [address] [place] [address] [place] [address] [address] ARTHROPLASTY TOTAL KNEE LEFT Scheduled Procedures Name Priority Associated Diagnoses Date/Ti dc ARTHROPLASTY TOTAL KNEE left knee osteoarthritis 10/23/2024 10:00 AM RESIDENTIAL FRAMING CARPENTER ESOPHAGOGASTRODUODENOSCOPY Dysphagia, unspecified type documented as of this encounter Visit Diagnoses Not on filedocumented in this encounter Home Health Visit - Care Plan Visit Details Visit Type -PT Home Visit Discipline -Physical Therapy Problems Problem Description Start Date Status Goals Interventions Homebound Status Disciplines: Skilled Disciplines Patient's homebound status 01/09/2024 Active 1 goal linked to scheduled/docume nted intervention 1 goal intervention scheduled/documen ana in this visit Monitor patient's vital signs every home health visit Disciplines: SN, PT, OT, SOFTWARE QUALITY SPECIALIST, SUPERVISOR SLEEPING BAG DEPARTMENT, Skilled Disciplines Monitor patient's vital signs every [...] goal intervention scheduled/documen ana in this visit PT Stroke/CVA Disciplines: Physical Therapy Aftercare related to stroke/CVA 01/09/2024 Active - 5 problem interventions scheduled/documen ana in this visit Goals Goal Associated Problem Outcome Goal Met? Visit Notes Patient receives care at the most appropriate care setting Description: Patient receives care at the most appropriate care setting. Homebound Status No Measure vital signs during every home health visit during episode of care Description: Home shoe parts caser to measure vital signs during every home [...] home, LE weakness, balance deficits, fall risk. Monitor Vital Signs Description: Monitor [...] concerns Goal:Demonstrate use of safety precautions Completed instructed pt to have assist at all times with gait in the home and up and down garage steps, to use assist device at all times and gait belt to rest as needed with activity Assess safety Description: Assess patient safety Problem:Safety [...] pain has been reduced or controlled Completed takes pain meds as needed Home Exercise Program (HEP) Description: Instruct patient/caregiver and perform HEP. Problem:PT Stroke/CVA Completed has updated written hep to follow Gait/Stair Training Description: Instruct patient/caregiver and perform gait/stair training. Problem:PT Stroke/CVA Completed instructed pt with observing on in and out of the garage where he has 2 steps, no rail, using SBQC and min asst pt descends with cane and left foot, slightly unsteady but no lob then ascending fairly steady using cane do recommend placement of handrail on door frame and pt reports in the works gait in the home for 150 ft x 1 and then 100 ft x 1 over level surfaces in the home and on the deck using hemiwalker and supervision, pt does exhibit slight flexion at neck and hips improvement noted with heel toe gait, decreased knee extension on the left with stance mod sob noted Bed Mobility/Transfer Training Description: Instruct patient/caregiver and perform bed mobility/transfer training. Problem:PT Stroke/CVA Completed sit to from stand from wheelchair depending on the right ue to push himself up on his own Balance Training/Activities Description: Instruct patient/caregiver and perform balance training activities. Problem:PT Stroke/CVA Completed instructed pt on standing balance activities including standing static with feet together arms down to side for 2 minutes cues to engage abd and buttocks, then standing with eyes closed for 30 seconds feet slightly apart slightly unsteady CGA then standing staggered with arms down to side for 30 seconds each leg slightly unsteady CGA also working on sidestepping and forward gait approx 6 ft x 2 in each direction gait balance with hemiwalker and SBQC 3+/5 Therapeutic Exercise Description: Perform therapeutic exercise, progressing as tolerated. Problem:PT Stroke/CVA Completed instructed pt on standing strengtheinng while supported with right hand on rail heel toe raises, hip abd/add, partial knee bends, hip flexion with knee flexion x 15 reps cues to engage abd to improve core strength pt has written hep for seated and supine HEP did issue a standing hep program to observed but did not participate documented in this encounter Care Teams Silica Dry Press Helper Relationship Specialty Start Date End Date Wolfgang Serrano MD PCP - General Family Medicine 05/05/23 08/02/24 Unknown, Notinfile 03/12/22 [place] [address] [facility] [address] [place] [address] 03/12/22 Chuy Enriquez MD [address] [place] [address] Consulting Physician Pulmonary Disease 10/13/23 Luis Felipe Cedillo MD [address] [place] [address] Consulting Physician Gastroenterology 10/13/23 Marlene Thornton MD [address], [place] [address] Surgeon Vascular Surgery 11/10/23 documented as of this encounter
--- OUTSIDE RECORDS SUMMARY | 2024-10-11 01:52 | XMS_ITS | Encounter Summary ---
Author Organization [facility] Healthcare Address [address] [place] [address] Care Team Providers Care Special Machine Stitcher Name Role Phone Wolfgang Serrano MD Primary Care Provider [phone] Unknown, Notinfile Unavailable Unavailable Santino Funk MD Unavailable [phone] Chuy Enriquez MD Unavailable Luis Felipe Cedillo MD Unavailable [phone] Marlene Thornton MD Unavailable Reason for Visit * Auth/Cert (Routine) Specialty Diagnoses / Procedures Referred By Contac t Referred To Contact Referral ID Status Reason Start Date Expiration Date Visits Re quested Visits Authorized [id number] 1 60 Encounter Details Date Type Department Care Team (Late st Contact Info) Description 03/08/2024 Home Care Visit [facility] Health [address] [place] [address] Kavya Basurto, OT TELEPHONE ENCOUNTER Social History Tobacco Use Types Packs/Day [...] materials from doctor or pharmacy Sometimes 03/08/2024 [facility] Utilities Answer Date Recorded In [...] any clubs o r organizations such as yarsani groups, unions, fraternal or athletic groups, or [...] Recorded Patient Health Questionnaire-2 Score 0 01/06/2024 [facility] [place] of Occupat ional Health - Occupational Stress [...] place to sleep or slept in a snf (including now)? No 12/16/2023 Personal Safety Answer Date Recorded Have you ever been in or are you currently in a harmful physical or emotional relationship or is someone making you feel afraid or unsafe? Denies 12/15/2023 Sex and Gender Information Value Date Recorded Sex Assigned at Not on file Legal Sex Male 3:25 PM BUYERS' AGENT Gender Identity Not on file Sexual Orientation Not on file documented as of this encounter Plan of Treatment Upcoming Encounters Date Type Department Care Team (Latest Contact Info) Description 10/23/2024 10:00 AM BUYERS' AGENT Hospital Encounter [facility] Operating Room [address] [place] [address] [place] [address] [address] [address] 10/23/2024 10:00 AM BUYERS' AGENT - 10/23/2024 1:00 PM BUYERS' AGENT Surgery [facility] Operating Room [address] [place] [address] [place] [address] [address] ARTHROPLASTY TOTAL KNEE LEFT Scheduled Procedures Name Priority Associated Diagnoses Date/Ti me ARTHROPLASTY TOTAL KNEE left knee osteoarthritis 10/23/2024 10:00 AM BUYERS' AGENT ESOPHAGOGASTRODUODENOSCOPY Dysphagia, unspecified type documented as of this encounter Visit Diagnoses Not on filedocumented in this encounter Care Teams Special Machine Stitcher Relationship Specialty Start Date End Date Wolfgang Serrano MD PCP - General Family Medicine 05/05/23 08/02/24 Unknown, Notinfile 03/12/22 [place] [address] [facility] [address] [place] [address] 03/12/22 Chuy Enriquez MD [address] [facility] [address] [place] [address] Consulting Physician Pulmonary Disease 10/13/23 Luis Felipe Cedillo MD [address] [facility] [address] [place] [address] Consulting Physician Gastroenterology 10/13/23 Marlene Thornton MD [address] [facility] [address], [place] [address] Surgeon Vascular Surgery 11/10/23 documented as of this encounter
--- OUTSIDE RECORDS SUMMARY | 2024-10-11 01:52 | XMS_ITS | Encounter Summary ---
Author Organization [facility] Healthcare Address [address] [place] [address] Care Team Providers Care Chief Dietitian Name Role Phone Wolfgang Serrano MD Primary Care Provider [phone] Unknown, Notinfile Unavailable Unavailable Santino Funk MD Unavailable Chuy Enriquez MD Unavailable [phone] Luis Felipe Cedillo MD Unavailable [phone] Marlene Thornton MD Unavailable Reason for Visit * Auth/Cert (Routine) Specialty Diagnoses / Procedures Referred By Contac t Referred To Contact Referral ID Status Reason Start Date Expiration Date Visits Re quested Visits Authorized [id number] 1 60 Encounter Details Date Type Department Care Team (Late st Contact Info) Description 03/03/2024 11:00 AM CDT Home Care Visit [facility] Health [address] [address] [address] [place] [address] Anjelica Winter, CASTING TECHNICIAN CASTING TECHNICIAN REASSESSMENT Social History Tobacco Use Types Packs/Day Years Used Date Smoking Tobacco: Former Cigarettes 1 96 - 1966 Smokeless Tobacco: Never Alcohol Use [...] materials from doctor or pharmacy Sometimes 01/09/2024 [facility] Utilities Answer Date Recorded In the past 12 months has e [employer], gas, oil, or water company threatened to [...] often do you attend chur ch or restoration services? More than 4 times per year 12/16/2023 Do you belong to any clubs o r organizations such as mormon groups, unions, fraternal or athletic groups, or [...] Recorded Patient Health Questionnaire-2 Score 0 01/06/2024 [facility] [place] of Occupat ional Health - Occupational Stress [...] on file Legal Sex Male 3:25 PM MILK RECEIVER Gender Identity Not on file Sexual Orientation Not on file documented as of this encounter Last Filed Vital Signs Vital Sign Reading Time Taken Comments Blood Pressure 130/76 03/03/2024 11:34 AM CDT Pulse 84 03/03/2024 11:34 AM CDT Temperature 37 ??C (98.6 ??F) 03/03/2024 11:34 AM CDT Respiratory Rate 18 03/03/2024 11:34 AM CDT Oxygen Saturation 96% 03/03/2024 11:34 AM CDT Inhaled Oxygen Concentration - - Weight - - Height - - Body Mass Index - - documented in this encounter Miscellaneous Notes * Home Health Plan for Next Visit - Anjelica Winter SLP - 03/03/2024 11:55 AM CDT Reason for today's visit: skilled ST services for swallowing, cognitive communication, and intelligibility Discuss plan of care with patient and patient caregiver. Discharge planning: DC today, patient and caregiver demonstrate comprehension and argreeable to ST DC. Patient plans to start OP therapy after home care discharge next week Plan for next visit: no further ST visits planned at this time documented in this encounter Plan of Treatment Upcoming Encounters Date Type Department Care Team (Latest Contact Info) Description 10/23/2024 10:00 AM MILK RECEIVER Hospital Encounter [facility] Operating Room [id number] [place] [address] [place] [address] [address] 10/23/2024 10:00 AM MILK RECEIVER - 10/23/2024 1:00 PM MILK RECEIVER Surgery [facility] Operating Room [address] [place] [address] [place] [address] [address] ARTHROPLASTY TOTAL KNEE LEFT Scheduled Procedures Name Priority Associated Diagnoses Date/Ti me ARTHROPLASTY TOTAL KNEE left knee osteoarthritis 10/23/2024 10:00 AM MILK RECEIVER ESOPHAGOGASTRODUODENOSCOPY Dysphagia, unspecified type documented as of this encounter Visit Diagnoses Not on filedocumented in this encounter Home Health Visit - Care Plan Visit Details Visit Type -CASTING TECHNICIAN Reassessment Discipline -Speech Language Pathology Problems Problem Description Start Date Status Goals Interventions Homebound Status Disciplines: Skilled Disciplines Patient's homebound status 01/09/2024 Active 1 goal linked to scheduled/documen ana intervention 1 goal intervention scheduled/docume nted in this visit Monitor patient's vital signs every home health visit Disciplines: SN, PT, OT, CASTING TECHNICIAN, FLOOR GRINDER, Skilled Disciplines Monitor patient's vital signs every home health visit. 01/09/2024 Active 1 goal linked to scheduled/documen ana intervention 1 goal intervention scheduled/docume nted in this visit Infection Prevention Disciplines: Skilled Disciplines Infection Prevention 01/09/2024 Active 1 goal linked to scheduled/documen ana intervention 2 goal interventions scheduled/docume nted in this visit Safety concerns Disciplines: Skilled Disciplines Alteration in safety 01/09/2024 Active 1 goal linked to scheduled/documen ana intervention 2 goal interventions scheduled/docume nted in this visit DVT Prevention and Management Disciplines: Skilled Disciplines Management of anticoagulation therapy 01/09/2024 Active 1 goal linked to scheduled/documen ana intervention 2 goal interventions scheduled/docume nted in this visit CASTING TECHNICIAN Impaired Swallowing Disciplines: Speech Language Pathology Impaired swallow with oral phase dysphagia 01/14/2024 Active 1 goal linked to scheduled/documen ana intervention 2 problem interventions scheduled/docume nted in this visit Instruct/evalua te cognitive function Disciplines: Speech Language Pathology Review patient's current cognitive status and create management plan 01/14/2024 Active 1 goal linked to scheduled/documen ana intervention 1 problem intervention scheduled/docume nted in this visit CASTING TECHNICIAN oral motor problems Disciplines: Speech Language Pathology Review patient's current oral motor status and create plan. 02/09/2024 Active 2 goals linked to scheduled/documen ana interventions 2 problem interventions scheduled/docume nted in this visit Goals Goal Associated Problem Outcome Goal Met? Visit Notes Patient receives care at the most appropriate care setting Description: Patient receives care at the most appropriate care setting. Homebound Status No Measure vital signs during every home health visit during episode of care Description: Home water jet operator to measure vital signs during every home [...] contact EMS. DVT Prevention and Management No Improvement in swallowing ability Description: Patient will tolerate a least restrictive diet without clinical signs or symptoms of aspiration by 02/12/2024. Patient is making functional progress towards goal, extend goal meet date to 03/08/2024. CASTING TECHNICIAN Impaired Swallowing Met Yes Cognitive Status - Reassess Description: Patient will improve MOCA score to 26/30 by 02/12/2024. Patient making functional progress towards goal, extend goal meet date to 03/08/2024. Instruct/evaluate cognitive function Met Yes Improvement with articulation/intelligibilit y Description: Patient will demonstrate improved articulation/intelligibilit y at sentence level by 03/08/2024. CASTING TECHNICIAN oral motor problems Progressing No Performance with HEP Description: Patient/caregiver to be independent with progressed HEP by therapy discharge. CASTING TECHNICIAN oral motor problems Met Yes Interventions Intervention Associated Problem/Goal Status Variance Visit [...] Management Goal:Demonstrate knowledge of anticoagulant therapy Completed Home Exercise Program (HEP) Description: Instruct patient/caregiver and perform HEP. Problem:CASTING TECHNICIAN Impaired Swallowing Completed Review and continued development of HEP for oral motor exercises with patient and patient caregiver demonstrating comprehension and ability to complete independently. Instruct on swallowing exercises Description: Teach swallow exercises Problem:CASTING TECHNICIAN Impaired Swallowing Completed Review of oral motor Assess cognitive status Description: Assess and/or reassess cognitive status. Problem:Instruct/melinda petit cognitive function Completed MOCA completed this date with score of 23/30 indicating mild cognitive decline, which is an improvement from initial CASTING TECHNICIAN evaluation. Home Exercise Program (HEP) Description: Instruct patient/caregiver and perform HEP. Problem:CASTING TECHNICIAN oral motor problems Completed Review and continued development of HEP for intelligibility with patient and patient caregiver demonstrating comprehension and ability to complete independently. CASTING TECHNICIAN speech articulation disorder treatments Description: Therapeutic exercise Problem:CASTING TECHNICIAN oral motor problems Completed Review of intelligibility strategies including decreased rate, overarticulation (exaggerate your mouth movements), spacing and phrasing (space out your words) with patient demonstrating comprehension. Patient reports he has been practicing using intelligibility strategies on his own by reading out loud. documented in this encounter Care Teams Chief Dietitian Relationship Specialty Start Date End Date Wolfgang Serrano MD PCP - General Family Medicine 05/05/23 08/02/24 Unknown, Notinfile 03/12/22 [place] [address] [facility] [address] [place] [address] 03/12/22 Chuy Enriquez MD [address] [place] [address] Consulting Physician Pulmonary Disease 10/13/23 Luis Felipe Cedillo MD [address] [place] [address] Consulting Physician Gastroenterology 10/13/23 Marlene Thornton MD [address] [place] [address] Surgeon Vascular Surgery 11/10/23 documented as of this encounter
--- OUTSIDE RECORDS SUMMARY | 2024-10-11 01:52 | XMS_ITS | Encounter Summary ---
Author Organization [facility] Healthcare Address [address] [place] [address] Care Team Providers Care Chemistry Quality Control Technician Name Role Phone Wolfgang Serrano MD Primary Care Provider Unknown, Notinfile Unavailable Unavailable Santino Funk MD Unavailable Chuy Enriquez MD Unavailable Luis Felipe Cedillo MD Unavailable Marlene Thornton MD Unavailable [phone] Encounter Details Date Type Department Care Team (Late st Contact Info) Description 03/29/2024 Telephone [facility] Medical Group Orthopedics and Sports Medicine at [place] [id number] [facility] [address] [place] [phone] George Sepulveda MD [address] [place] [id number] Social History Tobacco Use Types Packs/Day Years Used Date Smoking Tobacco: Former Cigarettes 1966 Smokeless Tobacco: Never Alcohol Use Standard [...] Sometimes 03/08/2024 [facility] Utilities Answer Date Recorded In the past [...] often do you attend chur ch or yarsanism services? More than 4 times per year 12/16/2023 Do you belong to any clubs o r organizations such as anglican groups, unions, fraternal or athletic groups, or [...] Recorded Patient Health Questionnaire-2 Score 0 01/06/2024 [facility] of Occupat ional Health - Occupational Stress [...] file Legal Sex Male 3:25 PM RESIDENTIAL SUPERVISOR Gender Identity Not on file Sexual Orientation Not on file documented as of this encounter Ordered Prescriptions Prescription Sig Dispense Quantity Refills Last Filled Start Date End Date HYDROcodone-acetami nophen (NORCO) 5-325 mg per tabletIndications:P ain Take 1 tablet by mouth every 6 (six) hours as needed for pain 20 tablet 03/30/2024 documented in this encounter Miscellaneous Notes * Telephone Encounter - Joana Suresh - 03/29/2024 3:49 PM CDT Patient c/o left knee pain. Last injection on 03/21. Patient requesting medication [facility] [address] documented in this encounter Plan of Treatment Upcoming Encounters Date Type Department Care Team (Latest Contact Info) Description 10/23/2024 10:00 AM RESIDENTIAL SUPERVISOR Hospital Encounter [facility] Operating Room [address] [place] [address] [place] [address] [facility] [address] [place] [address] 10/23/2024 10:00 AM RESIDENTIAL SUPERVISOR - 10/23/2024 1:00 PM RESIDENTIAL SUPERVISOR Surgery [facility] Operating Room [address] [place] [address] [place] [address] [facility] [address] [place], [place] [id number] ARTHROPLASTY TOTAL KNEE LEFT Scheduled Procedures Name Priority Associated Diagnoses Date/Ti me ARTHROPLASTY TOTAL KNEE left knee osteoarthritis 10/23/2024 10:00 AM RESIDENTIAL SUPERVISOR ESOPHAGOGASTRODUODENOSCOPY Dysphagia, unspecified type documented as of this encounter Visit Diagnoses Not on filedocumented in this encounter Care Teams Chemistry Quality Control Technician Relationship Specialty Start Date End Date Wolfgang Serrano MD PCP - General Family Medicine 05/05/23 08/02/24 Unknown, Notinfile 03/12/22 [place] [address] [facility] [address] [place] [address] 03/12/22 Chuy Enriquez MD [address] [place] [address] Consulting Physician Pulmonary Disease 10/13/23 Luis Felipe Cedillo MD [address] [place] [address] Consulting Physician Gastroenterology 10/13/23 Marlene Thornton MD [address] [facility] [address] [place] [address] Surgeon Vascular Surgery 11/10/23 documented as of this encounter
--- OUTSIDE RECORDS SUMMARY | 2024-10-11 01:52 | XMS_ITS | Encounter Summary ---
Author Organization [facility] Healthcare Address [address] [place] [address] Care Team Providers Care Landscaping Specialist Name Role Phone Wolfgang Serrano MD Primary Care Provider Unknown, Notinfile Unavailable Unavailable Santino Funk MD Unavailable Chuy Enriquez MD Unavailable Luis Felipe Cedillo MD Unavailable [phone] Marlene Thornton MD Unavailable Reason for Visit * Reason Comments Stroke * Auth/Cert (Routine) Specialty Diagnoses / Procedures Referred By Contac t Referred To Contact Referral ID Status Reason Start Date Expiration Date Visits Re quested Visits Authorized [id number] 1 60 Encounter Details Date Type Department Care Team (Late st Contact Info) Description 03/08/2024 10:00 AM CDT Home Care Visit [facility] [place] [address] [address] [place] [address] Jacque Tolliver, PT PT OASIS DISCHARGE Social History Tobacco Use Types Packs/Day [...] materials from doctor or pharmacy Sometimes 03/08/2024 [facility] Utilities Answer Date Recorded In the past 12 months has th e [employer], gas, oil, or water company threatened [...] any clubs o r organizations such as jewish groups, unions, fraternal or athletic groups, or [...] Recorded Patient Health Questionnaire-2 Score 0 01/06/2024 [facility] [place] of Occupat ional Health - Occupational Stress [...] on file Legal Sex Male 3:25 PM GETTERER Gender Identity Not on file Sexual Orientation Not on file documented as of this encounter Miscellaneous Notes * Home Health Visit Narrative - Jacque Tolliver, PT - 03/08/2024 10:19 AM CDT Patient to be d/c to home with HEP with instructions to extend walking distance as tolerated; continue HEP as directed and to increase reps to 20 as tolerated and do not miss two days in a row; review of medications, pain management, and home safety; when/who to call with increased pain, increased difficulty with walking or mobility, falls or anything out of the ordinary; follow up care includingphysician visit and referral to outpatient PT. Patient verbalized understanding and of discharge instructions. documented in this encounter Plan of Treatment Upcoming Encounters Date Type Department Care Team (Latest Contact Info) Description 10/23/2024 10:00 AM GETTERER Hospital Encounter [facility] Operating Room [address] [place] [address] [place] [address] [address] 10/23/2024 10:00 AM GETTERER - 10/23/2024 1:00 PM GETTERER Surgery [facility] Operating Room [address] [place] [address] [place] [address] [address] ARTHROPLASTY TOTAL KNEE LEFT Scheduled Procedures Name Priority Associated Diagnoses Date/Ti me ARTHROPLASTY TOTAL KNEE left knee osteoarthritis 10/23/2024 10:00 AM GETTERER ESOPHAGOGASTRODUODENOSCOPY Dysphagia, unspecified type documented as of this encounter Visit Diagnoses Not on filedocumented in this encounter Home Health Visit - Care Plan Visit Details Visit Type -PT OASIS Dischar ge Discipline -Physical Therapy Problems Problem Description Start Date Status Goals Interventions Homebound Status Disciplines: Skilled Disciplines Patient's homebound status 01/09/2024 Resolved on 03/08/2024 1 goal linked to scheduled/docume nted intervention 1 goal intervention scheduled/docume nted in this visit Monitor patient's vital signs every home health visit Disciplines: SN, PT, OT, SENIOR ASIC ENGINEER, PAPER SALES MANAGER, Skilled Disciplines Monitor patient's vital signs every home health visit. 01/09/2024 Resolved on 03/08/2024 1 goal linked to scheduled/docume nted intervention 1 goal intervention scheduled/docume nted in this visit Multidisciplina ry Case Conference Disciplines: Skilled Disciplines Concurrently discusses plan of treatment and coordinate patient centered care 01/09/2024 Resolved on 03/08/2024 1 goal linked to scheduled/docume nted intervention Infection Prevention Disciplines: Skilled Disciplines Infection Prevention 01/09/2024 Resolved on 03/08/2024 1 goal linked to scheduled/docume nted intervention 3 goal interventions scheduled/docume nted in this visit [...] goal intervention scheduled/docume nted in this visit PT Medication Management Disciplines: Physical Therapy PT Medication Management 01/09/2024 Resolved on 03/08/2024 1 goal linked to scheduled/docume nted intervention 1 problem intervention scheduled/docume nted in this visit PT Stroke/CVA Disciplines: Physical Therapy Aftercare related to stroke/CVA 01/09/2024 Resolved on 03/08/2024 6 goals linked to scheduled/docume nted interventions 3 problem interventions scheduled/docume nted in this visit PT Positioning/Pre ssure Relief Disciplines: Physical Therapy Positioning/seating /pressure relief needed due to recent CVA causing limiting mobility. 01/09/2024 Resolved on 03/08/2024 2 goals linked to scheduled/docume nted interventions Goals Goal Associated Problem Outcome Goal Met? Visit Notes Patient receives care at the most appropriate care setting Description: Patient receives care at the most appropriate care setting. Homebound Status Completed Yes Measure vital signs during every home health visit during episode of care Description: Home rag grader to measure vital signs during every home health visit during episode of care. Monitor patient's vital signs every home health visit Completed Yes Care team will coordinate care Description: Care team will coordinate care centered on patient needs throughout the episode of care. Multidisciplinary Case Conference Completed Yes Verbalize signs of infection Description: Patient/caregiver will demonstrate knowledge of infection prevention strategies by verbalizing signs and symptoms of infection. Infection Prevention Completed Yes Demonstrate use of safety precautions Description: Patient/caregiver maintains safe home environment as evidenced by remaining free from injury and demonstrates use of safety precautions. Safety concerns Completed Yes Demonstrate knowledge of anticoagulant therapy Description: Patient/caregiver will verbalize understanding of anticoagulation therapy including adverse signs and symptoms to notify physician or contact EMS. DVT Prevention and Management Completed Yes Report that pain has been reduced or controlled Description: Patient/caregiver/family will verbalize satisfaction with the patients level of pain and symptom control. Pain Completed Yes Demonstrate understanding of medication regimen interventions Description: Patient/caregiver will verbalize/demonstrate understanding of medication regimen, including side effects of any high-risk pain meds by 02/05/24 to optimize desired effect of the medication and prevent adverse events. PT Medication Management Completed Yes Improvement in distance with timed walk assessment Description: Patient to improve TUG score from 67 seconds at IE to 45 seconds or better to demonstrate improvement in ambulation by 03/08/24. PT Stroke/CVA Adequate for Discharge No Improvement in balance Description: Patient to improve initial ROBERSON score by 6 points (or more) from 14/56 at IE to 20/56 (or more) to demonstrate improvement to assist with transfers, gait, stairs by 03/08/24. PT Stroke/CVA Adequate for Discharge No Improvement in strength and/or control Description: Patient to improve gross LLE MMT to 4-/5 or better by discharge and demonstrate ability to maintain left terminal knee extension by discharge. PT Stroke/CVA Adequate for Discharge No Improvement in Gait/Stair Training Description: Patient will ambulate 300+ feet in home using rasheed-walker or 2WW with platform attachment with assist as needed by 03/08/24. Patient will negotiate 2 front steps using rasheed-walker or 2WW with platform attachment and person assist as needed to access transportation/community activities by 03/08/24. PT Stroke/CVA Adequate for Discharge No Performance with HEP Description: Patient/caregiver to be independent with progressed HEP by therapy discharge. PT Stroke/CVA Adequate for Discharge No Improvement in Performance with Bed Mobility/Transfers Description: Patient will transfer without assist safely from a variety of household surfaces consistently including edge of bed, toilet, chair, vehicle, shower by 03/08/24. PT Stroke/CVA Adequate for Discharge No Improved knowledge/performance with pressure relief Description: Patient/caregiver to verbalize understanding and perform pressure relieving techniques to relief pressure from bony prominences, at risk areas by 03/08/24. PT Positioning/Pressure Relief Completed Yes Improved knowledge/performance with positioning Description: Patient/caregiver to verbalize understanding of positioning to protect bony prominences, at risk areas by 04/27/24. PT Positioning/Pressure Relief Completed Yes Interventions Intervention Associated Problem/Goal Status Variance [...] health visit during episode of care Completed Aspects of Care Description: Instruct patient/caregiver on universal precautions and home infection control measures Problem:Infection Prevention Goal:Verbalize signs of infection Completed Educate Patient on Infection Prevention Description: [...] pain has been reduced or controlled Scheduled Medication Regimen Description: Assess patient/caregiver ability to follow prescribed medication regimen, including monitoring for side effects, notifying physician of questions or concerns and contacting pharmacy for refills when needed. Problem:PT Medication Management Completed Home Exercise Program (HEP) Description: Instruct patient/caregiver and perform HEP. Problem:PT Stroke/CVA Completed Gait/Stair Training Description: Instruct patient/caregiver and perform gait/stair training. Problem:PT Stroke/CVA Completed Bed Mobility/Transfer Training Description: Instruct patient/caregiver and perform bed mobility/transfer training. Problem:PT Stroke/CVA Completed documented in this encounter Care Teams Landscaping Specialist Relationship Specialty Start Date End Date Wolfgang Serrano MD PCP - General Family Medicine 05/05/23 08/02/24 Unknown, Notinfile 03/12/22 [place] [address] [place] [address] 03/12/22 Chuy Enriquez MD [address] [place] [address] Consulting Physician Pulmonary Disease 10/13/23 Luis Felipe Cedillo MD [address] [place] [address] Consulting Physician Gastroenterology 10/13/23 Marlene Thornton MD [address], [place] [address] Surgeon Vascular Surgery 11/10/23 documented as of this encounter
--- OUTSIDE RECORDS SUMMARY | 2024-10-11 01:52 | XMS_ITS | Encounter Summary ---
Author Organization [facility] Healthcare Address [address] [place] [address] Care Team Providers Care Teasel Setter Name Role Phone Wolfgang Serrano MD Primary Care Provider Unknown, Notinfile Unavailable Unavailable Santino Funk MD Unavailable [phone] Chuy Enriquez MD Unavailable Luis Felipe Cedillo MD Unavailable [phone] Marlene Thornton MD Unavailable Encounter Details Date Type Department Care Team (Late st Contact Info) Description 06/16/[address] [facility] Pre Anesthesia Testing [address] [place] [address] Madie Trujillo RN Social History [...] materials from doctor or pharmacy Sometimes 03/08/2024 [facility] Utilities Answer Date Recorded In the past [...] often do you attend chur ch or anglican services? 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 Operating Room [address] [place] [address] [place] [address] [facility] [address] [place], [place] [id number] 10/23/2024 10:00 AM HEAD MVA REACTOR OPERATOR - 10/23/2024 1:00 PM HEAD MVA REACTOR OPERATOR Surgery 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 REACTOR OPERATOR ESOPHAGOGASTRODUODENOSCOPY Dysphagia, unspecified type documented as of this encounter Visit Diagnoses Not on filedocumented in this encounter Care Teams Teasel Setter Relationship Specialty Start Date End Date Wolfgang Serrano MD PCP - General Family Medicine 05/05/23 08/02/24 Unknown, Notinfile 03/12/22 [place] [address] [facility] [address] [place] [address] 03/12/22 Chuy Enriquez MD [address] [facility] [address] [place] [address] Consulting Physician Pulmonary Disease 10/13/23 Luis Felipe Cedillo MD [address] [facility] [address], [place] [address] Consulting Physician Gastroenterology 10/13/23 Marlene Thornton MD [address] [facility] [address], [place] [address] Surgeon Vascular Surgery 11/10/23 documented as of this encounter
--- OUTSIDE RECORDS SUMMARY | 2024-10-11 01:52 | XMS_ITS | Encounter Summary ---
Author Organization [facility] Healthcare Address [address] [place] [address] Care Team Providers Care Change Management Administrator Name Role Phone Wolfgang Serrano MD Primary Care Provider [phone] Unknown, Notinfile Unavailable Unavailable Santino Funk MD Unavailable [phone] Chuy Enriquez MD Unavailable Luis Felipe Cedillo MD Unavailable Marlene Thornton MD Unavailable Reason for Visit * Reason Comments Pain Encounter Details Date Type Department Care Team (Late st Contact Info) Description 06/22/2024 3:00 PM CDT Office Visit [facility] Orthopedics and Sports Medicine at [facility] [address] [facility] [address] [place] [phone] [place] [id number] [address] Arthritis of left knee (Primary Dx); Hypoglycemia; Vitamin D deficiency Social History Tobacco Use Types Packs/Day Years Used Date Smoking Tobacco: Former Cigarettes 1 966 1966 Passive Smoke Exposure: Never Smokeless Tobacco: [...] materials from doctor or pharmacy Sometimes 03/08/2024 [facility] Utilities Answer Date Recorded In the past 12 months has e [employer], [employer], oil, or water [employer] threatened to shut off services in your [...] How often do you attend chur or rastafari services? More than 4 times per year 12/16/2023 Do you belong to any clubs o r organizations such as baptist groups, unions, fraternal or athletic groups, or [...] Patient Health Questionnaire-2 Score 0 01/06/2024 [facility] [place] of Occupat ional Health - Occupational Stress [...] on file Legal Sex Male 3:25 PM RETAIL SERVICE REPRESENTATIVE Gender Identity Not on file Sexual Orientation Not on file documented as of this encounter Last Filed Vital Signs Vital Sign Reading Time Taken Comments Blood Pressure 140/92 06/22/2024 3:10 PM CDT Pulse - - Temperature - - Respiratory Rate - - Oxygen Saturation - - Inhaled Oxygen Concentration - - Weight 84.8 kg (187 lb) 06/22/2024 3:10 PM CDT Height 177.8 cm (5' 10 ) 06/22/2024 3:10 PM CDT Body Mass Index 26.83 06/22/2024 3:10 PM CDT documented in this encounter Progress Notes * Grey Dykes MD - 06/22/2024 3:00 PM CDT Images from the original note were not included. H & P PATIENT VISIT Subjective CHIEF COMPLAINT He had concerns including Pain of the Left Knee. HISTORY OF PRESENT ILLINESS The patient is a 78-year-old with a history of hypertension Alzheimer's disease, osteochondral lesion of the left patella, cerebrovascular accidents status post left-sided hemiparesis with peripheralvascular disease, aortic abdominal aneurysm and left tibial plateau fracture who has developed end-stage arthritis of the left knee. The patient finds it extremely difficult to walk. He suffered a cerebrovascular accident with left-sided hemiparesis in November this year. He is undergoing his stroke rehabilitation but finds it extremely difficult to work on strengthening when his leg gives out and has ongoing pain. Aggressive therapy aggravates the pain in his knee. He wears a brace for added support and uses a cane or a rasheed walker for ambulation purposes. The patient denies numbness in the leg. He denies radiating pains in the legs. He was scheduled to undergo total knee replacement by Dr. Sepulveda who is unavailable PAST MEDICAL HISTORY He has a past medical history of Acute gastric ulcer without hemorrhage or perforation, Alzheimer'sdementia ([facility]), Asthma, Back pain, Cataract, Closed fracture of left tibial plateau with delayed healing, Closed fracture of right tibial plateau with delayed healing, Closed nondisplaced osteochondral fracture of left patella with delayed healing, Closed osteochondral fracture of patella, right, with delayed healing, subsequent encounter, Clotting disorder ([facility]) ([facility]), Complex tear of medialmeniscus of left knee as current injury, Complex tear of medial meniscus of right knee as current injury, Cramps of lower extremity, Diverticulitis of colon, Easy bruisability, Enlarged prostate, Fati nan, Frequent urination, Gastroesophageal reflux disease, Hyperlipidemia, Hypertension, Hypothyroidism, Incontinence of urine, Muscle weakness, Osteoarthritis, Peptic ulcer, Seizures ([facility]) (1997), SOB (shortness of breath) on exertion, Stroke ([facility]) (12/09/2023), Subchondral insufficiency fracture of condyle of left femur ([facility]) ([facility]), Vertigo, Vision changes, Visual disturbance, and . He has no past medical history of Malignant hyperthermia, Motion sickness, PONV (postoperative nausea and vomiting), or Sleep apnea. PAST SURGICAL HISTORY He has a past surgical history that includes Hernia repair (1979); Cataract extraction, bilateral (Bilateral, 2018); Thyroidectomy (12/27/2019); and Knee arthroscopy (Bilateral). MEDICATIONS He has a current medication list which includes the following prescription(s): advair hfa, albuterol hfa, aspirin, capsaicin, cetirizine, cholecalciferol, clobetasol, cyanocobalamin, cyclobenzaprine,donepezil, flovent hfa, furosemide, gabapentin, hydrocodone-acetaminophen, levothyroxine, magnesiumoxide/magnesium, melatonin, multivit-min/ferrous fumarate, oxybutynin xl, pantoprazole , pravastatin, rosuvastatin, scopolamine, senna-docusate, spironolactone, tamsulosin, tizanidine, triamcinolone, turmeric root extract, gemtesa, and pantoprazole . ALLERGIES He has no known allergies. SOCIAL HISTORY He reports that he quit smoking about 57 years ago. His smoking use included cigarettes. He startedsmoking about 58 years ago. He has never been exposed to tobacco smoke. He has never used smokelesstobacco. He reports that he does not currently use drugs after having used the following drugs: Alcohol. Patient reports consuming alcoholic drinks monthly or less, with a daily consumption of drinks. Patient denies daily consumption of 6 or more alcoholic drinks at one occasion. FAMILY HISTORY His family history includes Heart attack in his father, mother, and sister; Heart disease in an other family member; Heart failure in an other family member; Osteoarthritis in an other family member;Osteoporosis in an other family member. REVIEW OF SYSTEMS Review of Systems Constitutional: Negative for fever and unexpected weight change. HENT: Negative for hearing loss and sore throat. Eyes: Negative for visual disturbance. Respiratory: Negative for shortness of breath. Cardiovascular: Negative for chest pain and palpitations. Gastrointestinal: Negative for blood in stool, constipation and diarrhea. Endocrine: Negative for polydipsia and polyuria. Genitourinary: Negative for dysuria and hematuria. Musculoskeletal: Positive for arthralgias, gait problem and joint swelling. Negative for neck pain. Skin: Negative for rash. Allergic/Immunologic: Negative for immunocompromised state. Neurological: Positive for weakness. Negative for seizures and numbness. Hematological: Does not bruise/bleed easily. Psychiatric/Behavioral: Negative for dysphoric mood. The patient is not nervous/anxious. Objective PHYSICAL EXAM BP 140/92 (BP Location: Right arm, Patient Position: Sitting) Ht 177.8 cm (5' 10 ) Wt 84.8 kg (187 lb) BMI 26.83 kg/m?? Alert oriented x3 with a normal affect, no respiratory distress, chest isclear heart had a regular rate and rhythm normal S1 and S2, head ears eyes nose and throat are within normal limits with facial asymmetry, abdomen soft nontender no masses no rebound no guarding Ortho Exam left-sided hemiparesis with 4/5 quad and hamstring strength on the left sensations grossly intact light touch 1+ nonpitting edema in the leg, no cords no calf tenderness negative Homans, crepitance range of motion the knee with no gross instability the cruciates range of motion is from 7?? to 95?? with a healed incision on the right and good overall alignment, no instability the collateral ligaments, downgoing toes no evidence of clonus REVIEW OF X-RAYS/STUDIES/LABS AP lateral views left knee reveal nearly complete joint space obliteration over the medial compartment the knee with hypertrophic osteophytes in all three compartments to my interpretation of films from January 2020 for Assessment/Plan Abrahan was seen today for pain. Diagnoses and all orders for this visit: Arthritis of left knee - Albumin; Future - Hemoglobin A1c; Future - Protein, total; Future - Vitamin D 25 hydroxy; Future Hypoglycemia - Albumin; Future - Hemoglobin A1c; Future - Protein, total; Future - Vitamin D 25 hydroxy; Future Vitamin D deficiency - Albumin; Future - Hemoglobin A1c; Future - Protein, total; Future - Vitamin D 25 hydroxy; Future Plan Arthritis of left knee The patient has advanced arthritis of the [...] schedule surgery when convenient for the patient. Grey Dykes MD documented in this encounter Miscellaneous Notes * Assessment & Plan Note - Grey Dykes MD - 06/22/2024 3:40 PM CDT Associated Problem(s): Arthritis of left knee The patient has advanced arthritis of the [...] schedule surgery when convenient for the patient. documented in this encounter Plan of Treatment Upcoming Encounters Date Type Department Care Team (Latest Contact Info) Description 10/23/2024 10:00 AM RETAIL SERVICE REPRESENTATIVE Hospital Encounter [facility] Operating Room [address] [place] [address] [place] [id number] [place] [id number] 10/23/2024 10:00 AM RETAIL SERVICE REPRESENTATIVE - 10/23/2024 1:00 PM RETAIL SERVICE REPRESENTATIVE Surgery [facility] Operating Room [address] [place] [address] [place] [address] [facility] [address] [place] [address] ARTHROPLASTY TOTAL KNEE LEFT Scheduled Procedures Name Priority Associated Diagnoses Date/Ti me ARTHROPLASTY TOTAL KNEE left knee osteoarthritis 10/23/2024 10:00 AM RETAIL SERVICE REPRESENTATIVE ESOPHAGOGASTRODUODENOSCOPY Dysphagia, unspecified type documented as of this encounter Results * Vitamin D 25 hydroxy (07/11/2024 11:07 AM CDT) [facility] Vitamin D 25-OH 56 30 - 80 ng/mL Blood 07/11/2024 11:0 7 AM CDT 07/11/2024 12:07 PM CDT us Grey Dykes MD LAB BLOOD ORDERABLES Final Result MARVIN PHILLIP [address] [address] [place], [place] [id number] * Protein, total (07/11/2024 11:07 AM CDT) [facility] Protein, pl 6.7 6.5 - 8.5 g/dL Blood 07/11/2024 11:0 7 AM CDT 07/11/2024 12:07 PM CDT us Grey Dykes MD LAB BLOOD ORDERABLES Final Result MARVIN PHILLIP [address] [address] Department of [place], [place] [id number] * (ABNORMAL) Hemoglobin A1c (07/11/2024 11:07 AM CDT) [facility] Hgb A1C 6.1(H) 4.0 - 5.6 % Estimated Average Glucose 128 mg/dL MARVIN Comment: The ADA recommends reporting an estimated Average Glucose (eAG) with all Hemoglobin A1c results using the equation derived from a study of 507 normal and diabetic adults. ??Minority populations were underrepresented and children were not included. ?? (Diabetes Care 31:4890-5181, 2008). ??The eAG is not equivalent to a fasting glucose. Blood 07/11/2024 11:0 7 AM CDT 07/11/2024 12:06 PM CDT Grey Dykes MD LAB BLOOD ORDERABLES Final Result Performing Organization Address City/[facility]/ZIP Co de Phone Number [facility] [address] [address] [facility] [place] [place] [address] * Albumin (07/11/2024 11:07 AM CDT) Albumin 3.6 3.5 - 5.0 g/dL Blood 07/11/2024 11:0 7 AM CDT 07/11/2024 12:07 PM CDT Grey Dykes MD LAB BLOOD ORDERABLES Final Result Performing Organization Address City/[facility] Co de Phone Number [facility] [address] [address] [facility] [place] [place] [address] documented in this encounter Visit Diagnoses Diagnosis Arthritis of left knee- Primary Hypoglycemia Hypoglycemia, unspecified Vitamin D deficiency documented in this encounter Care Teams Change Management Administrator Relationship Specialty Start Date End Date Wolfgang Serrano MD PCP - General Family Medicine 05/05/23 08/02/24 Unknown, Notinfile 03/12/22 [place] [id number] [address] [facility] [address] [place] [address] 03/12/22 Chuy Enriquez MD [address] [facility] [address] [place] [address] Consulting Physician Pulmonary Disease 10/13/23 Luis Felipe Cedillo MD [address] [facility] [address] [address] Consulting Physician Gastroenterology 10/13/23 Marlene Thornton MD [address] [facility] [address] [address] Surgeon Vascular Surgery 11/10/23 documented as of this encounter
--- OUTSIDE RECORDS SUMMARY | 2024-10-11 01:52 | XMS_ITS | Encounter Summary ---
Author Organization [facility] Healthcare Address [address] [place] [address] Care Team Providers Care Ship Engineer Name Role Phone Wolfgang Serrano MD Primary Care Provider Unknown, Notinfile Unavailable Unavailable Santino Funk MD Unavailable Chuy Enriquez MD Unavailable Luis Felipe Cedillo MD Unavailable Marlene Thornton MD Unavailable [phone] Reason for Visit * Reason Comments Cerebrovascular Accident * Auth/Cert (Routine) Specialty Diagnoses / Procedures Referred By Contac t Referred To Contact Referral ID Status Reason Start Date Expiration Date Visits Re quested Visits Authorized [id number] 1 60 Encounter Details Date Type Department Care Team (Late st Contact Info) Description 02/29/2024 3:30 PM CDT Home Care Visit [facility] [address] [place] [address] Alaina Lopes PTA PT HOME VISIT Social [...] from doctor or pharmacy Sometimes 01/09/2024 [facility] Utilities Answer Date Recorded In the past 12 months has th e [employer], [employer], oil, or water [employer] threatened to shut off services in your [...] often do you attend chur ch or tenriism services? 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 Gender Identity Not on file Sexual Orientation Not on file documented as of this encounter Last Filed Vital Signs Vital Sign Reading Time Taken Comments Blood Pressure 118/68 02/29/2024 4:07 PM CDT Pulse 91 02/29/2024 4:07 PM CDT Temperature 36.6 ??C (97.8 ??F) 02/29/2024 4:07 PM CD T Respiratory Rate 18 02/29/2024 4:07 PM CDT Oxygen Saturation 98% 02/29/2024 4:07 PM CDT Inhaled Oxygen Concentration - - Weight - - Height - - Body Mass Index - - documented in this encounter Miscellaneous Notes * Home Health Plan for Next Visit - Alaina Lopes, HOUSE COORDINATOR - 02/29/2024 4:29 PM CDT Reason for today's visit gait, balance, strengthening, garage steps Discuss plan of care with pt and Discharge planning by end of cert period Plan for next visit gait, balance, garage steps, reports she is not sure she will be able to get the pt to from outpatient due to her having tolift the wheelchair in and and out of car pt is scheduled for dc at end of cert with progression into outpatient also she doesnt want pt to go up and down basement steps that she is looking into a stair lift did work on steps in and out of the home in garage , states caregiver will use the wheelchair in front of the home to get pt out of house update to care team documented in this encounter Plan of Treatment Upcoming Encounters Date Type Department Care Team (Latest Contact Info) Description 10/23/2024 10:00 AM STARS COORDINATOR Hospital Encounter [facility] Operating Room [address] [place] [address] [place] [address] [address] 10/23/2024 10:00 AM STARS COORDINATOR - 10/23/2024 1:00 PM STARS COORDINATOR Surgery [facility] Operating Room [address] [place] [address] [place] [address] [address] ARTHROPLASTY TOTAL KNEE LEFT Scheduled Procedures Name Priority Associated Diagnoses Date/Ti me ARTHROPLASTY TOTAL KNEE left knee osteoarthritis 10/23/2024 10:00 AM STARS COORDINATOR ESOPHAGOGASTRODUODENOSCOPY Dysphagia, unspecified type documented as of [...] home health visit Disciplines: SN, PT, OT, WELDER APPRENTICE ARC, MED AIDE, Skilled Disciplines Monitor patient's vital signs every [...] visit during episode of care Description: Home card mounter to measure vital signs during every home [...] of safety precautions Completed instructed pt to use the assistive device at all times, to rest as needed to make sure brakes are locked at all times Assess safety Description: Assess patient safety Problem:Safety [...] pain has been reduced or controlled Completed meds as needed for pain Home Exercise Program (HEP) Description: Instruct patient/caregiver and perform HEP. Problem:PT Stroke/CVA Completed pt has updated hep Gait/Stair Training Description: Instruct patient/caregiver and perform gait/stair training. Problem:PT Stroke/CVA Completed instructed pt on up and down 2 steps out of the garage using SBQC and min to mod asst pt slightly unsteady when transitions right foot to left did complete x 2 then gait outdoors from garage to the front porch approx 80 ft and ascended 2 platform steps with cane, min asst and SBWC gait in the home with rasheed walker for approx 150 ft left arm in sling, Bed Mobility/Transfer Training Description: Instruct patient/caregiver and perform bed mobility/transfer training. Problem:PT Stroke/CVA Completed sit to from stand depending on right ue to push himself up, left ue in sling, pt completes toilet transfers safely on his own Balance Training/Activities Description: Instruct [...] issue a standing hep program to observed documented in this encounter Care Teams Ship Engineer Relationship Specialty Start Date End Date Wolfgang Serrano MD PCP - General Family Medicine 05/05/23 08/02/24 Unknown, Notinfile 03/12/22 [place] [address] [address] 03/12/22 Chuy Enriquez MD [address] [place] [address] Consulting Physician Pulmonary Disease 10/13/23 Luis Felipe Cedillo MD [address] [place] [address] Consulting Physician Gastroenterology 10/13/23 Marlene Thornton MD [address] [place] [address] Surgeon Vascular Surgery 11/10/23 documented as of this encounter
--- OUTSIDE RECORDS SUMMARY | 2024-10-11 01:52 | XMS_ITS | Encounter Summary ---
Author Organization [facility] Address [address] [facility] [address] [place] [address] Phone Care Team Providers Care Dent Remover Name Role Phone Wolfgang Serrano MD Primary Care Provider Unknown, Notinfile Unavailable Unavailable Santino Funk MD Unavailable [phone] Chuy Enriquez MD Unavailable Luis Felipe Cedillo MD Unavailable Marlene Thornton MD Unavailable [phone] Reason for Referral * Consultation (Routine) - Closed Specialty Diagnoses / Procedures Referred By Contac t Referred To Contact Neurology Diagnoses Cerebrovascular accident (CVA), unspecified mechanism (HCC) Kostas Joshi MD [address] [facility] [place] [address] Phone: tel: fax: [facility] Stroke [address] [place] [address] Phone: tel: fax: Referral ID Status Reason Start Date Expiration Date V isits Requested Visits Authorized [id number] Closed Specialty Services Required 04/20/2024 05/20/2025 1 1 Question Answer Please select the performing region: [facility] (All Locations) [167] # of visits: 1 Comments For f/u post stroke Reason for Visit * Consultation (Routine) - Pending Review Specialty Diagnoses / Procedures Referred By Contac t Referred To Contact Gastroenterology Diagnoses Dysphagia, unspecified type Diverticulum of esophagus, acquired Irvin Smith MD [address] [place] [address] Phone: tel: fax: Yfn Roe MD [address] [facility] [place] [address] Phone: tel: fax: Referral ID Status Reason Start Date Expiration Date Visits Requested Visits Authorized [id number] Pending Review Specialty Services Required 02/03/2024 04/06/2025 12 12 Encounter Details Date Type Department Care Team (Late st Contact Info) Description 04/20/2024 8:00 AM CDT Office Visit [facility] Gastroenterology [address] [facility] 2nd Floor [address] [place] [address] Yfn Roe MD [address] [place] [address] Dysphagia, unspecified type (Primary Dx); Diverticulum of esophagus, acquired; Cerebrovascular accident (CVA), unspecified mechanism (HCC) Social [...] materials from doctor or pharmacy Sometimes 03/08/2024 [facility] Utilities Answer Date Recorded In the [...] often do you attend chur ch or nondenominational services? 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 Gender Identity Not on file Sexual Orientation Not on file documented as of this encounter Last Filed Vital Signs Vital Sign Reading Time Taken Comments Blood Pressure 125/79 04/20/2024 8:06 AM CDT Pulse 69 04/20/2024 8:06 AM CDT Temperature 36.7 ??C (98 ??F) 04/20/2024 8:06 AM CDT Respiratory Rate - - Oxygen Saturation 95% 04/20/2024 8:06 AM CDT Inhaled Oxygen Concentration - - Weight 86.2 kg (190 lb) 04/20/2024 8:06 AM CDT Height 177.8 cm (5' 10 ) 04/20/2024 8:06 AM CDT Body Mass Index 27.26 04/20/2024 8:06 AM CDT documented in this encounter Progress Notes * Kostas Joshi MD - 04/20/2024 8:00 AM CDT Biliary Initial Consult Note Chief complaint: difficulty swallowing Reason for consult: Dysphagia, consideration of POEM Requesting provider: Dr. Irvin Parker HPI: This is a 78 y.o. male with history of GERD, prior hiatal hernia s/p repair (1979), PVD, AAA, stroke (12/2023) who presented to GI clinic for evaluation of dysphagia. Longstanding dysphagia after found to have hiatal hernia which was repaired in 1979 reportedly at [facility]. Patient believes his muscle was split but unclear if this was heller myotomy vs fundoplication and records are not readily available. Thought this improved symptoms he has had sensation of food getting stuck in lower chest since then with progression since 2021. Describes occasional food stuck in throat, regurgitation, and chest pain immediately after swallowing bread and steak which he tries to avoid. Liquids are without issue. Weight loss attributed to recent lost of taste from stroke detailed below. Does endorse reflux if eats a heavy meal late at nightfor which he takes pantoprazole BID and TUMs twice weekly. Recent hospitalization at [facility] 12/2023 where he presented with left sided weakness concerning for stroke though CT was negative. TWISTING PRESS OPERATOR evaluated patient and found left labial weakness withmild spillage of secretions. Following this no worsening of swallowing. Notably, had coffee ground emesis 10/2023 where EGD showed esophageal ulcers and diverticulum at GE junction. Given all of the above an esophagram 02/14/24 demonstrated persistent contrast column distally at 15 minutes but did not mention diverticulum. Denies tobacco use. Past Medical History: Diagnosis Date Acute gastric [...] with delayed healing, subsequent encounter Clotting disorder (CMS/HCC) ([facility]) Complex tear of medial meniscus of left knee as current injury Complex tear of medial meniscus of right knee as current injury Cramps of lower extremity Diverticulitis of colon Easy bruisability Fatigue Frequent urination Gastroesophageal reflux disease GERD Hypothyroidism Incontinence of urine Muscle weakness Osteoarthritis Osteoarthritis Peptic ulcer Peptic ulcer disease Seizures (HCC) 1998 last seizure in 1997 SOB (shortness of breath) on exertion Subchondral insufficiency fracture of condyle of left femur (CMS/HCC) (HCC) Vertigo Vision changes Visual disturbance hx of double vision, corrective lenses Past Surgical History: Procedure Laterality Date CATARACT EXTRACTION, BILATERAL Bilateral 2018 HERNIA REPAIR 1980 Hiatal Hernia repair KNEE ARTHROSCOPY Bilateral THYROIDECTOMY 12/27/2019 Current Outpatient Medications Medication Sig Dispense Refill Advair HFA 230-21 mcg/actuation inhaler Inhale 2 puffs 2 (two) times a day albuterol HFA (PROVENTIL HFA,VENTOLIN HFA,PROAIR HFA) 90 mcg/actuation inhaler 2 puffs every 4 (four) hours as needed aspirin 81 mg chewable tablet Take 1 tablet (81 mg total) by mouth daily 90 tablet 0 capsaicin 0.1 % cream Apply to your feet three to four times a day. 60 g 5 cetirizine (ZyrTEC) 10 mg tablet Take 1 tablet (10 mg total) by mouth daily cholecalciferol (VITAMIN D-3) 2000 unit capsule Take 1 capsule (2,000 Units total) by mouth daily (Patient taking differently: Take 1 capsule (2,000 Units total) by mouth nightly) 30 capsule 3 cyanocobalamin (Vitamin B-12) 1,000 mcg tablet Take 1 tablet (1,000 mcg total) by mouth daily cyclobenzaprine (FLEXERIL) 5 mg tablet Take 1 tablet (5 mg total) by mouth 3 (three) times a day asneeded donepeziL (ARICEPT) 10 mg tablet Take 1 tablet by mouth nightly 30 tablet 0 gabapentin (NEURONTIN) 300 mg capsule Take 2 [...] tablet by mouth daily. Indications: multi-vitamin support pantoprazole DR (PROTONIX) 40 mg EC tablet Take 1 tablet (40 mg total) by mouth 2 (two) times a [id number] tablet 0 rosuvastatin (CRESTOR) 40 mg tablet Take 1 tablet (40 mg total) by mouth daily 90 tablet 0 senna-docusate (PERICOLACE) 8.6-50 mg Take 2 tablets by mouth daily as needed for constipation tamsulosin (FLOMAX) 0.4 mg extended release capsule [...] mg tablet Take 75 mg by mouth clobetasoL (TEMOVATE) 0.05 % ointment Apply topically 2 (two) times a day To most severe rash/itch on your skin. Do not use on face, armpits, or groin. If your most severe rash has yellow crusts/flakes, then mix clobetasol ointment 1:1 with mupirocin ointment before applying it. For less severe rash/itch, use triamcinolone cream sent as a separate prescription. (Patient not taking: Reported on 04/20/2024) 60 g 3 Flovent HFA 44 mcg/actuation inhaler INHALE 2 PUFFS BY MOUTH TWICE DAILY EVERY 12 HOURS (Patient not taking: Reported on 04/20/2024) lidocaine (ASPERCREME) 4 % adhesive patch,medicated Place 1 patch on the skin daily for 12 days (Patient not taking: Reported on 04/20/2024) 12 patch 0 oxybutynin XL (DITROPAN-XL) 10 mg 24 hr tablet Take 1 tablet (10 mg total) by mouth nightly (Patient not taking: Reported on 04/20/2024) No current facility-administered medications for this visit. No Known Allergies Social History reports that he quit smoking about 57 years ago. His smoking use included cigarettes. He started smoking about 58 years ago. He has never been exposed to tobacco smoke. He has never used smokeless tobacco. He reports current drug use. Drug: Alcohol. Patient reports consuming alcoholic drinks monthly or less, with a daily consumption of drinks. Patient also reports less than monthly occurrences ofconsuming 6 or more alcoholic drinks at one occasion. Family History family history includes Heart attack in his father, mother, and sister; Heart disease in an other family member; Heart failure in an other family member; Osteoarthritis in an other family member; Osteoporosis in an other family member. Review of Systems: Review of systems per HPI and otherwise all other systems are negative OBJECTIVE Vitals: 24hr Min/Max: @FLOWSTAT(6,8,5,9,10:24::1)@ No intake/output data recorded. @IOTHISSHIFT@ Physical Exam: General: Well-developed in NAD. HEENT: NC/AT. EOMI. MMM. Wiping drool from left side. Neck: Supple. No tenderness, enlargement, JVD or LAD noted. Lungs: CTAB. No wheezing or crackles heard. No respiratory distress. Heart: RRR. +S1, S2. No murmurs or gallops appreciated. Abdomen: Soft. NT/ND. BS active. No organomegaly. Scar over upper abdomen. Ext/MS: No edema, cyanosis, or erythema. Neuro: A&O x3. Minimal left facial droop. Left arm in sling. Psych: Appears to have normal affect, mood, judgement, and insight. Skin: No obvious rashes or lesions noted. LABS: Lab Results Component Value Date WBC 8.0 01/03/2024 HGB 11.7 (L) 01/03/2024 HCT 35.6 (L) 01/03/2024 MCV 95.2 01/03/2024 LABPLAT 228 01/03/2024 Lab Results Component Value Date GLUCOSE 105 01/03/2024 CALCIUM 8.9 01/03/2024 SODIUM 141 01/03/2024 POTASSIUM 4.2 01/03/2024 CO2 26 01/03/2024 CHLORIDE 108 01/03/2024 BUNSER 12 01/03/2024 CREATININE 1.22 01/03/2024 Lab Results Component Value Date ALT 23 01/03/2024 AST 19 01/03/2024 ALKPHOS 100 01/03/2024 BILITOT 0.3 01/03/2024 Lab Results Component Value Date INR 1.11 12/11/2023 INR 1.04 12/07/2023 INR 1.0 11/18/2021 IMAGING Results for orders placed during the hospital encounter of 06/23/22 US Venous Reflux Bilateral Narrative EXAMINATION: Bilateral lower venous duplex and extremity saphenous vein mapping, venous insufficiency study DATE: 06/23/2022 8:00 AM HISTORY: Swelling, Lower Extremity, BilateralSwelling, Lower Extremity, Bilateral Venous Insufficiency COMPARISON: Swelling. TECHNIQUE: Standard technique was performed for bilateral lower extremity venous duplex including grayscale and color Doppler venous imaging with spectral waveform analysis to evaluate for DVT. Similar technique was then performed for imaging of the bilateral greater and small saphenous veins was performed in the standing position. The legs were studied for venous reflux in the common femoral, femoral, profunda, popliteal, saphenofemoral junction, greater saphenous, saphenopopliteal junction, and small saphenous veins bilaterally. FINDINGS: No evidence of deep vein thrombosis in the bilateral lower extremities. Noninvasive venous studies cannot rule out an isolated calf vein obstruction. The following measurements were obtained for the greater saphenous vein (also noted if unable to locate or thrombosed): RIGHT Saphenofemoral junction 7.5 mm Proximal thigh 3.8 mm Mid thigh 2.8 mm Distal thigh 2.5 mm Proximal calf 2.0 mm Distal calf 1.8 mm LEFT Saphenofemoral junction 6.0 mm Proximal thigh 3.1 mm Mid thigh 2.8 mm Distal thigh 2.2 mm Proximal calf 3.0 mm Distal calf 1.2 mm The following measurements were obtained for the small saphenous vein: RIGHT Proximal calf 2.0 mm Distal calf 1.3 mm LEFT Proximal calf 2.0 mm Distal calf 2.3 mm Impression No venous reflux demonstrated. IMPRESSION: 1. No evidence of DVT in either leg. 2. No venous reflux demonstrated. Criteria for venous valvular insufficiency or reflux is retrograde flow for greater than 500 milliseconds in the superficial venous system and retrograde flow for greater than 1000 milliseconds, in the standing position. Electronically signed by: Jhonny Smallwood II, D.O. Results for orders placed during the hospital encounter of 01/18/24 CT chest without contrast Narrative EXAMINATION: Computed tomography of the chest without intravenous contrast HISTORY: Pulmonary nodule. TECHNIQUE: Transaxial computed tomographic images of the chest were obtained without intravenous contrast according to the standard protocol. COMPARISON: Multiple priors most recent dated 10/11/2023. FINDINGS: No significant change in the right lower lobe 8 mm pulmonary nodule, table position -584.8. No new nodules. No pleural effusion. Thyroidectomy. No mediastinal or hilar lymphadenopathy. Postprocedural changes in the mediastinum. The esophagus is dilated, there is a small hiatal hernia, and a large amount of fluid noted within the esophagus suggestive of gastroesophageal reflux. Simple cyst in the right hepatic lobe. Upper abdominal structures are unremarkable as seen. No acute osseous abnormality. Impression 1. No significant change in right lower lobe 8 mm pulmonary nodule. May consider PET/CT for further evaluation. 2. Dilated fluid-filled esophagus suggestive of gastroesophageal reflux. Electronically signed by: Jhonny Smallwood II, D.O. ASSESSMENT AND PLAN 78 y.o. male with history of GERD, prior hiatal hernia s/p repair (1979), PVD, AAA, stroke (12/2023)who presented to GI clinic for evaluation of dysphagia. Impression: #Dysphagia #GE diverticulum #Hiatal hernia s/p repair (1979) #GERD Progressive sensation of food getting stuck in lower chest with history of hiatal hernia repair (unclear method, 1979), recent stroke (12/2023), and longstanding GERD. Eckardt 6 on 04/20/24. EGD emonstrated esophageal ulcers and GE diverticulum. Esophagram 02/2024 showed persistent distal contrast. Suspect symptoms due to achalasia with stasis of food causing a GE diverticulum, which can also cause pain with swallowing. It is also possible his recent stroke or worsening hiatal hernia is contributing though he feels his symptoms have not changed since. Recommendations: - continue PPI BID - neurology referral placed for post stroke follow up - needs CPAP for anesthesia risk evaluation given recent stroke - EGD with endoflip +/- dilation at [facility] vs [facility] Kostas Joshi MD Gastroenterology Fellow Cosigned by Yfn Roe MD at 04/30/2024 10:06 PM CDT Associated attestation - Yfn Roe MD - 04/30/2024 10:06 PM CDT I have seen and examined the patient on 04/20/2024 and agree with the findings and assessment documented by Gi Fellow Dr Kostas Joshi. 78 y.o. male with history of GERD, prior hiatal hernia s/p repair (1979), PVD, AAA, stroke (12/2023) who presented to GI clinic for evaluation of dysphagia. Appears to have had esophageal surgery years ago, unlcear I this involved a myotomy, but suspect it had +/- a wrap. He has progressive symptoms and mention of lower esophageal diverticulum. This is complicated by recent stroke which may be a source of oropharyngeal dysphagia. He has not had neuro follow up since his stroke. I think its best we proceed with EGD and Endoflip to evaluate his anatomy and elucidae cause of his symptoms. 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 INSTRUCTOR Hospital Encounter [facility] Operating Room [address] [place] [id number] [place] [address] [address] 10/23/2024 10:00 AM WEIGHT TRAINING INSTRUCTOR - 10/23/2024 1:00 PM WEIGHT TRAINING INSTRUCTOR Surgery [facility] Operating Room [address] [place] [id number] [place] [address] [address] ARTHROPLASTY TOTAL KNEE LEFT Scheduled Procedures Name Priority Associated Diagnoses Date/Ti me ARTHROPLASTY TOTAL KNEE left knee osteoarthritis 10/23/2024 10:00 AM WEIGHT TRAINING INSTRUCTOR ESOPHAGOGASTRODUODENOSCOPY Dysphagia, unspecified type Scheduled Referrals Name Type Priority Associated Diagnoses Orde r Schedule Ambulatory referral to Neurology Outpatient Referral Routine Cerebrovascular accident (CVA), unspecified mechanism (HCC) Expected: 05/04/2024 (Approximate), Expires: 04/20/2025 documented as of this encounter Visit Diagnoses Diagnosis Dysphagia, unspecified type- Primary Diverticulum of esophagus, acquired Cerebrovascular accident (CVA), unspecified mechanism (HCC) documented in this encounter Historical Medications * This list may reflect changes made after this encounter. vibegron (Gemtesa) 75 mg tablet Take 75 mg by mouth added in this encounter Orders Outpatient Referral Count Last Ordered Date Fir st Ordered Date AMB REFERRAL TO GASTROENTEROLOGY 1 04/20/20 24 Case Request Count Last Ordered Date First Orde red Date CASE REQUEST GI 1 04/20/2024 documented in this encounter Care Teams Dent Remover Relationship Specialty Start Date End Date Wolfgang Serrano MD PCP - General Family Medicine 05/05/23 08/02/24 Unknown, Notinfile 03/12/22 [place] [address] [facility] [address] [place] [address] 03/12/22 Chuy Enriquez MD [address] [facility] [address] [place] [address] Consulting Physician Pulmonary Disease 10/13/23 Luis Felipe Cedillo MD [address] [facility] [address] [address] Consulting Physician Gastroenterology 10/13/23 Marlene Thornton MD [address] [facility] [address] [address] Surgeon Vascular Surgery 11/10/23 documented as of this encounter
--- OUTSIDE RECORDS SUMMARY | 2024-10-11 01:53 | XMS_ITS | Encounter Summary ---
Author Organization [facility] Healthcare Address [address] [place] [address] Care Team Providers Care Cabinet Worker Name Role Phone Wolfgang Serrano MD Primary Care Provider [phone] Unknown, Notinfile Unavailable Unavailable Santino Funk MD Unavailable [phone] Chuy Enriquez MD Unavailable Luis Felipe Cedillo MD Unavailable Marlene Thornton MD Unavailable Reason for Visit * Auth/Cert (Routine) Specialty Diagnoses / Procedures Referred By Contac t Referred To Contact Referral ID Status Reason Start Date Expiration Date Visits Re quested Visits Authorized [id number] 1 60 Encounter Details Date Type Department Care Team (Late st Contact Info) Description 02/09/2024 9:00 AM CDT Home Care Visit [facility] [address] [address] [address] [place] [address] Sarah Paulino COTA OT HOME [...] materials from doctor or pharmacy Sometimes 01/09/2024 [facility] Utilities Answer Date Recorded In the past [...] often do you attend chur ch or samaritan services? More than 4 times per year [...] Recorded Patient Health Questionnaire-2 Score 0 01/06/2024 [facility] of Occupat ional Health - Occupational Stress [...] place to sleep or slept in a fdc (including now)? No 12/16/2023 Personal Safety Answer Date Recorded Have you ever been in or are you currently in a harmful physical or emotional relationship or is someone making you feel afraid or unsafe? Denies 12/15/2023 Sex and Gender Information Value Date Recorded Sex Assigned at Not on file Legal Sex Male 3:25 PM MOTION PICTURE SET UP WORKER Gender Identity Not on file Sexual Orientation Not on file documented as of this encounter Last Filed Vital Signs Vital Sign Reading Time Taken Comments Blood Pressure 118/76 02/09/2024 9:56 AM CDT Pulse 75 02/09/2024 9:56 AM CDT Temperature 37.1 ??C (98.8 ??F) 02/09/2024 9:56 AM CD T Respiratory Rate 18 02/09/2024 9:56 AM CDT Oxygen Saturation 96% 02/09/2024 9:56 AM CDT Inhaled Oxygen Concentration - - Weight - - Height - - Body Mass Index - - documented in this encounter Miscellaneous Notes * Home Health Plan for Next Visit - Sarah Paulino COTA - 02/09/2024 9:08 AM CDT Reason for today's visit: Activities to improve L UE strength/ROM, instructed on don/doffing new sling, safe techniques for transfers, activities to improve standing balance. Discussed plan of care with pt and pt in agreement with POC Discharge planning: home with cg assistance, eventually transitioning to outpatient therapy Plan for next visit: Continued activities to improve L UE strength/ROM, safe techniques for completing IADL tasks. documented in this encounter Plan of Treatment Upcoming Encounters Date Type Department Care Team (Latest Contact Info) Description 10/23/2024 10:00 AM MOTION PICTURE SET UP WORKER Hospital Encounter [facility] Operating Room [address] [place] [address] [place] [address] [address] 10/23/2024 10:00 AM MOTION PICTURE SET UP WORKER - 10/23/2024 1:00 PM MOTION PICTURE SET UP WORKER Surgery [facility] Operating Room [address] [place] [address] [place] [address] [address] ARTHROPLASTY TOTAL KNEE LEFT Scheduled Procedures Name Priority Associated Diagnoses Date/Ti me ARTHROPLASTY TOTAL KNEE left knee osteoarthritis 10/23/2024 10:00 AM MOTION PICTURE SET UP WORKER ESOPHAGOGASTRODUODENOSCOPY Dysphagia, unspecified type documented as of [...] home health visit Disciplines: SN, PT, OT, CARDIOLOGY TECH, FULFILLMENT MAIL CLERK, Skilled Disciplines Monitor patient's vital signs every [...] Therapy Impaired functional mobility/balance 01/14/2024 Active - 1 problem intervention scheduled/documen [...] visit during episode of care Description: Home pre billing clinician to measure vital signs during every [...] pain has been reduced or controlled Completed Cognition - Compensatory Techniques Description: Instruct patient/caregiver in use of compensation techniques. Problem:OT Stroke/CVA Completed Instructed pt to continue to try to move L UE (hand/fingers). Instructed on cognitive retraining and progression of use of L UE. Pt demonstrates good understanding. Positioning Description: Patient/caregiver education for proper positioning. Problem:OT Impaired UE Function and/or Fine Motor Skills Completed Instructed pt on how to don/doff new sling, and assisted with adjusting sling to properly fit pt. Pt demonstrates good understanding, but will require cg assistance d/t limited strength/ROM in L UE. Taping Description: Instruct in use of UE taping of left UE Problem:OT Impaired UE Function and/or Fine Motor Skills Completed Kinesiotape on pt's L shoulder still intact. Instructed pt to remove kinesiotape if skin becomes red, irritated or pt unable to tolerate tape. Pt demonstrates good understanding. Therapeutic Exercise Description: Perform and progress therapeutic exercise. Problem:OT Impaired UE Function and/or Fine Motor Skills Completed Continued instruction with pt and pt's pd cg on PROM exercises (shoulder, elbow, wrist, digit flex/ext, pro/supination, shoulder ab/adduction) to increase strength and ROM in L UE Pt receives PROM exercises 10 reps X 1 Continued instruction on performing tabletop exercises on L UE (shoulder ab/adduction, elbow flex/ext), to increase L UE strength and ROM. Pt was able to perform tabletop exercises 10 reps X 2 requiring min assist. Instructed pt to continue to perform tabletop exercises with cg assistance. Pt demonstrates good understanding. Pt continues to display progression with tabletop exercises. Also instructed pt on performing weight bearing activity by standing at countertop and weight bearing through L UE to facilitate improved strength/muscle contraction in L UE. Pt is able to perform weight bearing activity requiring min assist. Instructed pt to only perform weight bearing activity with cg assistance to maintain safety. Pt demonstrates good understanding. Instructed pt to continue to rub, tap, massage L UE in order to facilitate muscle contraction. Pt demonstrates good understanding. Transfer Training Description: Instruct patient/caregiver and perform transfer training. Problem:OT Impaired Functional Mobility/Balance Completed Continued instruction on safe techniques for transfers (toilet, w/c - positioning of w/c, making sure brakes are on, transferring to stronger side). Pt transfers from w/c to toilet, toilet to w/c, w/c to recliner, requiring SBA/supervision d/t min verbal cues for safety. ADL Instruction Description: Instruct patient/caregiver for improved ADL performance. Problem:OT Impaired ADLs Completed Instructed pt on safe techniques for completing toileting tasks (using one handed techniques for hygiene and clothing management). Pt is able to perform toileting tasks Ind'ly, with no difficulty. documented in this encounter Care Teams Cabinet Worker Relationship Specialty Start Date End Date Wolfgang Serrano MD PCP - General Family Medicine 05/05/23 08/02/24 Unknown, Notinfile 03/12/22 [place] [address] [facility] [address] [place] [address] 03/12/22 Chuy Enriquez MD [address] [place], [place] [id number] Consulting Physician Pulmonary Disease 10/13/23 Luis Felipe Cedillo MD [address] [facility] [address], [place] [id number] Consulting Physician Gastroenterology 10/13/23 Marlene Thornton MD [address] [facility] [address], [place] [address] Surgeon Vascular Surgery 11/10/23 documented as of this encounter
--- OUTSIDE RECORDS SUMMARY | 2024-10-11 01:53 | XMS_ITS | Encounter Summary ---
Author Organization [facility] Healthcare Address [address] [place] [address] Care Team Providers Care Auto Brake Mechanic Name Role Phone Wolfgang Serrano MD Primary Care Provider [phone] Unknown, Notinfile Unavailable Unavailable Santino Funk MD Unavailable Chuy Enriquez MD Unavailable Luis Felipe Cedillo MD Unavailable [phone] Marlene Thornton MD Unavailable [phone] Reason for Visit * Auth/Cert (Routine) Specialty Diagnoses / Procedures Referred By Contac t Referred To Contact Referral ID Status Reason Start Date Expiration Date Visits Re quested Visits Authorized [id number] 1 60 Encounter Details Date Type Department Care Team (Late st Contact Info) Description 02/28/2024 9:00 AM CDT Home Care Visit [facility] [address] [address] [address] [place] [address] Sarah Paulino COTA OT HOME [...] materials from doctor or pharmacy Sometimes 01/09/2024 [facility] Utilities Answer Date Recorded In the [...] any clubs o r organizations such as restorationist groups, unions, fraternal or athletic groups, or [...] Recorded Patient Health Questionnaire-2 Score 0 01/06/2024 [facility] [place] of Occupat ional Health - Occupational Stress [...] on file Legal Sex Male 3:25 PM PAWN SHOP KEEPER Gender Identity Not on file Sexual Orientation Not on file documented as of this encounter Last Filed Vital Signs Vital Sign Reading Time Taken Comments Blood Pressure 122/72 02/28/2024 9:51 AM CDT Pulse 76 02/28/2024 9:51 AM CDT Temperature 36.8 ??C (98.3 ??F) 02/28/2024 9:51 AM CD T Respiratory Rate 18 02/28/2024 9:51 AM CDT Oxygen Saturation 96% 02/28/2024 9:51 AM CDT Inhaled Oxygen Concentration - - Weight - - Height - - Body Mass Index - - documented in this encounter Miscellaneous Notes * Home Health Plan for Next Visit - Sarah Paulino COTA - 02/28/2024 9:02 AM CDT Reason for today's visit: L UE HEP, activities to improve strength and ROM in L UE, safe techniquesfor completing IADL tasks (kitchen mob/light meal prep), medication management Discussed plan of care with pt and pt in agreement with POC Discharge planning: home with cg assistance, transitioning to outpatient therapy when d/c'd from home care Plan for next visit: Ind with performing HEP (pt and cg), safe techniques for ADLs and functional mobility documented in this encounter Plan of Treatment Upcoming Encounters Date Type Department Care Team (Latest Contact Info) Description 10/23/2024 10:00 AM PAWN SHOP KEEPER Hospital Encounter [facility] Operating Room [address] [place] [address] [place] [address] [address] 10/23/2024 10:00 AM PAWN SHOP KEEPER - 10/23/2024 1:00 PM PAWN SHOP KEEPER Surgery [facility] Operating Room [address] [place] [address] [place] [address] [address] ARTHROPLASTY TOTAL KNEE LEFT Scheduled Procedures Name Priority Associated Diagnoses Date/Ti me ARTHROPLASTY TOTAL KNEE left knee osteoarthritis 10/23/2024 10:00 AM PAWN SHOP KEEPER ESOPHAGOGASTRODUODENOSCOPY Dysphagia, unspecified type documented as of [...] home health visit Disciplines: SN, PT, OT, AIRCRAFT ENGINE ASSEMBLER, DINKER, Skilled Disciplines Monitor patient's vital signs every [...] Therapy Impaired functional mobility/balance 01/14/2024 Active - 2 problem interventions scheduled/documen ana in this visit OT Medication Management as an ADL Disciplines: Occupational Therapy Impaired ability to correctly manage medications as an ADL 01/14/2024 Active - 1 problem intervention scheduled/documen ana in this visit Goals Goal Associated Problem Outcome Goal Met? Visit Notes Patient receives care at the most appropriate care setting Description: Patient receives care at the most appropriate care setting. Homebound Status No Measure vital signs during every home health visit during episode of care Description: Home circuit clerk to measure vital signs during every home [...] CVA and compensation strategies Problem:OT Stroke/CVA Completed Positioning Description: Patient/caregiver education for proper positioning. Problem:OT Impaired UE Function and/or Fine Motor Skills Completed Continued instruction on use of sling for supporting L UE, or use of pillow/lap tray when laying and sitting. Pt demonstrates good understanding. Taping Description: Instruct [...] flex/ext. Pt able to perform PROM Ind'ly Continued instruction on performing tabletop exercises on L UE (shoulder ab/adduction, elbow flex/ext), to increase L UE strength and ROM. Pt was able to perform tabletop exercises 10 reps X 3 requiring min assist to SBA. Instructed pt to continue to perform tabletop exercises to increase L UE strength. Pt demonstrates good understanding. Continued instruction on performing weight bearing activity by standing at countertop and weight bearing through L UE to facilitate improved strength/muscle contraction in L UE. Pt is able to perform weight bearing activity requiring SBA. Instructed pt to only perform weight bearing activity with cg assistance to maintain safety. Pt demonstrates good understanding. Instruct in house management/homemaking activities Description: Instruct patient/caregiver for improved performance with house management/homemaking activities. Problem:OT Impaired IADLs Completed Instructed pt to keep items within easy reach, as pt reports his medications are sometimes difficult to get to, in cabinet. Instructed pt to keep medications in a different spot, making them more easy to get to. Pt demonstrates good understanding. Pt demonstrates Ind with manuevering w/c throughout kitchen to retrieve items from refrigerator and cabinets to perform light meal prep. Instructed pt to continue to utilize microwave and avoid use of oven/stove. Pt demonstrates good understanding. Transfer Training Description: Instruct patient/caregiver and perform transfer training. Problem:OT Impaired Functional Mobility/Balance Completed Pt transfers from recliner to w/c, w/c to recliner with SBA/supervision d/t min verbal cues for safety. Balance Activities Description: Balance Activities. Problem:OT Impaired Functional Mobility/Balance Completed Pt displays Fair standing balance while standing at kitchen countertop to perform weight bearing/weight shifting activity. Instructed pt to continue to utilize rasheed cane or quad cane to maintain safety with transfers and ambulation. Pt demonstrates good understanding. Medication Routine Strategies Description: Instruct patient/caregiver in medication routine strategies. Problem:OT Medication Management as an ADL Completed Instructed pt on use of mediplanner for managing meds, but pt reports he does not like to use a mediplanner. Pt demonstrates Ind with utilizing his own routine (opening medication bottles, placing medication on kleenex on table, folding meds up in kleenex and pouring medications out of kleenex into mouth. Pt reports his routine works for him. documented in this encounter Care Teams Auto Brake Mechanic Relationship Specialty Start Date End Date Wolfgang Serrano MD PCP - General Family Medicine 05/05/23 08/02/24 Unknown, Notinfile 03/12/22 [place] [address] [place] [address] 03/12/22 Chuy Enriquez MD [address] [place] [address] Consulting Physician Pulmonary Disease 10/13/23 Luis Felipe Cedillo MD [address] [address] Consulting Physician Gastroenterology 10/13/23 Marlene Thornton MD [address] [address] Surgeon Vascular Surgery 11/10/23 documented as of this encounter
--- OUTSIDE RECORDS SUMMARY | 2024-10-11 01:53 | XMS_ITS | Encounter Summary ---
Author Organization [facility] Healthcare Address [address] [place] [address] Care Team Providers Care Ase Certified Technician Name Role Phone Wolfgang Serrano MD Primary Care Provider [phone] Unknown, Notinfile Unavailable Unavailable Santino Funk MD Unavailable Chuy Enriquez MD Unavailable Luis Felipe Cedillo MD Unavailable [phone] Marlene Thornton MD Unavailable Reason for Visit * Auth/Cert (Routine) Specialty Diagnoses / Procedures Referred By Contac t Referred To Contact Referral ID Status Reason Start Date Expiration Date Visits Re quested Visits Authorized [id number] 1 60 Encounter Details Date Type Department Care Team (Late st Contact Info) Description 02/16/2024 1:45 PM CDT Home Care Visit [facility] [address] [place] [address] Anjelica Winter, ASSEMBLY INSTRUCTIONS WRITER ASSEMBLY INSTRUCTIONS WRITER HOME VISIT Social History Tobacco Use Types [...] materials from doctor or pharmacy Sometimes 01/09/2024 [facility] Utilities Answer Date Recorded In the past 12 months has e [employer], gas, oil, or water company threatened [...] often do you attend chur ch or confucianism services? More than 4 times per year 12/16/2023 Do you belong to any clubs o r organizations such as anabaptism groups, unions, fraternal or athletic groups, or [...] Recorded Patient Health Questionnaire-2 Score 0 01/06/2024 [facility] of Occupat ional Health - Occupational Stress [...] on file Legal Sex Male 3:25 PM HYDRAULIC GOVERNOR ASSEMBLER Gender Identity Not on file Sexual Orientation Not on file documented as of this encounter Last Filed Vital Signs Vital Sign Reading Time Taken Comments Blood Pressure 124/78 02/16/2024 1:16 PM CDT Pulse 68 02/16/2024 1:16 PM CDT Temperature 36.1 ??C (96.9 ??F) 02/16/2024 1:16 PM CD T Respiratory Rate 18 02/16/2024 1:16 PM CDT Oxygen Saturation 94% 02/16/2024 1:16 PM CDT Inhaled Oxygen Concentration - - Weight - - Height - - Body Mass Index - - documented in this encounter Miscellaneous Notes * Home Health Plan for Next Visit - Anjelica Winter SLP - 02/16/2024 1:22 PM CDT Reason for today's visit: skilled ST services for communication, swallowing, and cognitive communication Discuss plan of care with patient and patient caregiver. Discharge planning: DC when goals are met or max potential is reached Plan for next visit: therex, education, HEP development documented in this encounter Plan of Treatment Upcoming Encounters Date Type Department Care Team (Latest Contact Info) Description 10/23/2024 10:00 AM HYDRAULIC GOVERNOR ASSEMBLER Hospital Encounter [facility] Operating Room [address] [place] [address] [place] [address] [address] 10/23/2024 10:00 AM HYDRAULIC GOVERNOR ASSEMBLER - 10/23/2024 1:00 PM HYDRAULIC GOVERNOR ASSEMBLER Surgery [facility] Operating Room [address] [place] [address] [place] [address] [address] ARTHROPLASTY TOTAL KNEE LEFT Scheduled Procedures Name Priority Associated Diagnoses Date/Ti me ARTHROPLASTY TOTAL KNEE left knee osteoarthritis 10/23/2024 10:00 AM HYDRAULIC GOVERNOR ASSEMBLER ESOPHAGOGASTRODUODENOSCOPY Dysphagia, unspecified type documented as of this encounter Visit Diagnoses Not on filedocumented in this encounter Home Health Visit - Care Plan Visit Details Visit Type -ASSEMBLY INSTRUCTIONS WRITER Home Visit Discipline -Speech Language Pathology Problems Problem Description Start Date Status Goals Interventions Homebound Status Disciplines: Skilled Disciplines Patient's homebound status 01/09/2024 Active 1 goal linked to scheduled/docume nted intervention 1 goal intervention scheduled/documen ana in this visit Monitor patient's vital signs every home health visit Disciplines: SN, PT, OT, ASSEMBLY INSTRUCTIONS WRITER, LANGUAGE ARTS TEACHER, Skilled Disciplines Monitor patient's vital signs [...] goal interventions scheduled/documen ana in this visit ASSEMBLY INSTRUCTIONS WRITER Impaired Swallowing Disciplines: Speech Language Pathology Impaired swallow with oral phase dysphagia 01/14/2024 Active - 1 problem intervention scheduled/documen ana in this visit ASSEMBLY INSTRUCTIONS WRITER oral motor problems Disciplines: Speech Language Pathology Review patient's current oral motor status and create plan. 02/09/2024 Active - 1 problem intervention scheduled/documen ana in this visit Goals Goal Associated Problem Outcome Goal Met? Visit Notes Patient receives care at the most appropriate care setting Description: Patient receives care at the most appropriate care setting. Homebound Status No Measure vital signs during every home health visit during episode of care Description: Home refrigeration service technician to measure vital signs during every home [...] contact EMS. DVT Prevention and Management No Interventions Intervention Associated Problem/Goal Status Variance [...] (HEP) Description: Instruct patient/caregiver and perform HEP. Problem:ASSEMBLY INSTRUCTIONS WRITER Impaired Swallowing Completed ASSEMBLY INSTRUCTIONS WRITER speech articulation disorder treatments Description: Therapeutic exercise Problem:ASSEMBLY INSTRUCTIONS WRITER oral motor problems Completed Review of intelligibility strategies including overarticulation (exaggerate your mouth movements), spacing and phrasing (space out your words, take a breath when you need to, don't try to day to the end of the sentence), and diaphragmatic breathing (breathe into your belly) with patient demonstrating comprehension. Targeted use of intelligibility strategies with paragraph reading task with frequent cuing required for use of strategies and with automatic speech task with setup cuing required. documented in this encounter Care Teams Ase Certified Technician Relationship Specialty Start Date End Date Wolfgang Serrano MD PCP - General Family Medicine 05/05/23 08/02/24 Unknown, Notinfile 03/12/22 [place] [address] [address] 03/12/22 Chuy Enriquez MD [address] [facility] [address] [place] [address] Consulting Physician Pulmonary Disease 10/13/23 Luis Felipe Cedillo MD [address] [facility] [address] [address] Consulting Physician Gastroenterology 10/13/23 Marlene Thornton MD [address] [facility] [place] [address] Surgeon Vascular Surgery 11/10/23 documented as of this encounter
--- OUTSIDE RECORDS SUMMARY | 2024-10-11 01:53 | XMS_ITS | Encounter Summary ---
Author Organization [facility] Healthcare Address [address] [place] [address] Care Team Providers Care Independent Trader Name Role Phone Wolfgang Serrano MD Primary Care Provider Unknown, Notinfile Unavailable Unavailable Santino Funk MD Unavailable [phone] Chuy Enriquez MD Unavailable Luis Felipe Cedillo MD Unavailable [phone] Marlene Thornton MD Unavailable Reason for Visit * Auth/Cert (Routine) Specialty Diagnoses / Procedures Referred By Contac t Referred To Contact Referral ID Status Reason Start Date Expiration Date Visits Re quested Visits Authorized [id number] 1 60 Encounter Details Date Type Department Care Team (Late st Contact Info) Description 02/10/2024 12:00 PM CDT Home Care Visit [facility] [address] [address] [address] [place] [address] Bing Walker, MULTIGRAPH OPERATOR PT HOME VISIT Social History Tobacco Use [...] materials from doctor or pharmacy Sometimes 01/09/2024 [facility] Utilities Answer Date Recorded In the past [...] often do you attend chur ch or scientologist services? More than 4 times per year [...] Recorded Patient Health Questionnaire-2 Score 0 01/06/2024 [facility] [place] of Occupat ional Health - Occupational Stress [...] place to sleep or slept in a long term (including now)? No 12/16/2023 Personal Safety Answer Date Recorded Have you ever been in or are you currently in a harmful physical or emotional relationship or is someone making you feel afraid or unsafe? Denies 12/15/2023 Sex and Gender Information Value Date Recorded Sex Assigned at Not on file Legal Sex Male 3:25 PM SPINNER IRON Gender Identity Not on file Sexual Orientation Not on file documented as of this encounter Last Filed Vital Signs Vital Sign Reading Time Taken Comments Blood Pressure 122/80 02/10/2024 12:38 PM CDT Pulse 60 02/10/2024 12:38 PM CDT Temperature 36.3 ??C (97.3 ??F) 02/10/2024 12:38 PM C DT Respiratory Rate 18 02/10/2024 12:38 PM CDT Oxygen Saturation 97% 02/10/2024 12:38 PM CDT Inhaled Oxygen Concentration - - Weight - - Height - - Body Mass Index - - documented in this encounter Miscellaneous Notes * Home Health Plan for Next Visit - Bing Walker PTA - 02/10/2024 12:48 PM CDT Reason for today's visit pt seen today for continued education for safe transfers, amb, HEP to improve balance, strength and endurance Discuss plan of care with pt Discharge planning discussed pts progress and going to OP PT post HC Plan for next visit continue to make safe with amb, balance, steps documented in this encounter Plan of Treatment Upcoming Encounters Date Type Department Care Team (Latest Contact Info) Description 10/23/2024 10:00 AM SP[facility]ON Hospital Encounter [facility] Operating Room [address] [place] [id number] [place] [address] [address] 10/23/2024 10:00 AM SP[facility] - 10/23/2024 1:00 PM [facility] Surgery [facility] Operating Room [address] [place] [id number] [place] [id number] [address] ARTHROPLASTY TOTAL KNEE LEFT Scheduled Procedures Name Priority Associated Diagnoses Date/Ti me ARTHROPLASTY TOTAL KNEE left knee osteoarthritis 10/23/2024 10:00 AM [facility] ESOPHAGOGASTRODUODENOSCOPY Dysphagia, unspecified type documented as of [...] home health visit Disciplines: SN, PT, OT, APARTMENT LEASING CONSULTANT, IMPORT/EXPORT AGENT, Skilled Disciplines Monitor patient's vital signs every [...] Aftercare related to stroke/CVA 01/09/2024 Active - 4 problem interventions scheduled/documen ana in this visit Goals Goal Associated Problem Outcome Goal Met? Visit Notes Patient receives care at the most appropriate care setting Description: Patient receives care at the most appropriate care setting. Homebound Status No Measure vital signs during every home health visit during episode of care Description: Home band sawing machine operator to measure vital signs during every [...] at the most appropriate care setting Completed pt is homebound due to fall risk, req assistance out of the house, req assistance with ADLS Monitor Vital Signs Description: Monitor blood pressure, pulse, oxygen saturation, respirations Problem:Monitor patient's vital signs every home health visit Goal:Measure vital signs during every home health visit during episode of care Completed completed Educate Patient on Infection Prevention Description: Instruct [...] pain has been reduced or controlled Scheduled Gait/Stair Training Description: Instruct patient/caregiver and perform gait/stair training. Problem:PT Stroke/CVA Completed pt amb 80'x3 with CGA using the rasheed walker. pt req vc to increase foot clearance on L, stand erect, increase SHANA Bed Mobility/Transfer Training Description: Instruct patient/caregiver and perform bed mobility/transfer training. Problem:PT Stroke/CVA Completed Balance Training/Activities Description: Instruct patient/caregiver and perform balance training activities. Problem:PT Stroke/CVA Completed pt placed foot on 6 inch surface x10 R/L and req R hand on counter for support. pt performed sidestepping and forward/backward amb along counter with CGA. pt req vc to increase SHANA and to stand erect, increase foot clearance on L Therapeutic Exercise Description: Perform therapeutic exercise, progressing as tolerated. Problem:PT Stroke/CVA Completed pt in supine performed ap,qs,slr,saq, heel slides, hip abd, bridging 15 reps, in standing pt performed heel raises, marching,mini squats, hip abd on L 15 reps. in sitting laq and marching 15 reps. pt is progressing with HEP and instructed to perform 2-3x a day documented in this encounter Care Teams Independent Trader Relationship Specialty Start Date End Date Wolfgang Serrano MD PCP - General Family Medicine 05/05/23 08/02/24 Unknown, Notinfile 03/12/22 [place] [address] [place] [address] 03/12/22 Chuy Enriquez MD [address] [place] [address] Consulting Physician Pulmonary Disease 10/13/23 Luis Felipe Cedillo MD [address] [place] [address] Consulting Physician Gastroenterology 10/13/23 Marlene Thornton MD [address] [place] [address] Surgeon Vascular Surgery 11/10/23 documented as of this encounter
--- OUTSIDE RECORDS SUMMARY | 2024-10-11 01:53 | XMS_ITS | Encounter Summary ---
Author Organization [facility] Healthcare Address [address] [place] [address] Care Team Providers Care Wine Consultant Name Role Phone Wolfgang Serrano MD Primary Care Provider [phone] Unknown, Notinfile Unavailable Unavailable Santino Funk MD Unavailable [phone] Chuy Enriquez MD Unavailable Luis Felipe Cedillo MD Unavailable Marlene Thornton MD Unavailable Reason for Visit * Auth/Cert (Routine) Specialty Diagnoses / Procedures Referred By Contac t Referred To Contact Referral ID Status Reason Start Date Expiration Date Visits Re quested Visits Authorized [id number] 1 60 Encounter Details Date Type Department Care Team (Late st Contact Info) Description 02/23/2024 9:30 AM CDT Home Care Visit [facility] [address] [address] [address] [place] [address] Anjelica Winter, PRINCIPAL RESEARCH ECONOMIST PRINCIPAL RESEARCH ECONOMIST HOME VISIT Social History Tobacco Use Types [...] materials from doctor or pharmacy Sometimes 01/09/2024 [facility] Utilities Answer Date Recorded In the past 12 months has e [employer], gas, oil, or water company threatened to [...] any clubs o r organizations such as episcopal groups, unions, fraternal or athletic groups, or [...] Recorded Patient Health Questionnaire-2 Score 0 01/06/2024 [facility] [place] of Occupat ional Health - Occupational Stress [...] place to sleep or slept in a nursing home (including now)? No 12/16/2023 Personal Safety Answer Date Recorded Have you ever been in or are you currently in a harmful physical or emotional relationship or is someone making you feel afraid or unsafe? Denies 12/15/2023 Sex and Gender Information Value Date Recorded Sex Assigned at Not on file Legal Sex Male 3:25 PM REGIONAL ENGINEER Gender Identity Not on file Sexual Orientation Not on file documented as of this encounter Last Filed Vital Signs Vital Sign Reading Time Taken Comments Blood Pressure 126/78 02/23/2024 9:37 AM CDT Pulse 94 02/23/2024 9:37 AM CDT Temperature 36.1 ??C (96.9 ??F) 02/23/2024 9:37 AM CD T Respiratory Rate 18 02/23/2024 9:37 AM CDT Oxygen Saturation 96% 02/23/2024 9:37 AM CDT Inhaled Oxygen Concentration - - Weight - - Height - - Body Mass Index - - documented in this encounter Miscellaneous Notes * Home Health Plan for Next Visit - Anjelica Winter SLP - 02/23/2024 10:07 AM CDT Reason for today's visit: skilled ST services for swallowing, cognitive communication, and intelligibility strategies Discuss plan of care with patient and patient caregiver. Discharge planning: DC when goals are met or max potential is reached Plan for next visit: therex, education, HEP development documented in this encounter Plan of Treatment Upcoming Encounters Date Type Department Care Team (Latest Contact Info) Description 10/23/2024 10:00 AM REGIONAL ENGINEER Hospital Encounter [facility] Operating Room [address] [place] [address] [place] [address] [address] 10/23/2024 10:00 AM REGIONAL ENGINEER - 10/23/2024 1:00 PM REGIONAL ENGINEER Surgery [facility] Operating Room [address] [place] [address] [place] [address] [address] ARTHROPLASTY TOTAL KNEE LEFT Scheduled Procedures Name Priority Associated Diagnoses Date/Ti me ARTHROPLASTY TOTAL KNEE left knee osteoarthritis 10/23/2024 10:00 AM REGIONAL ENGINEER ESOPHAGOGASTRODUODENOSCOPY Dysphagia, unspecified type documented as of this encounter Visit Diagnoses Not on filedocumented in this encounter Home Health Visit - Care Plan Visit Details Visit Type -PRINCIPAL RESEARCH ECONOMIST Home Visit Discipline -Speech Language Pathology Problems Problem Description Start Date Status Goals Interventions Homebound Status Disciplines: Skilled Disciplines Patient's homebound status 01/09/2024 Active 1 goal linked to scheduled/docume nted intervention 1 goal intervention scheduled/documen ana in this visit Monitor patient's vital signs every home health visit Disciplines: SN, PT, OT, PRINCIPAL RESEARCH ECONOMIST, MAIL CLERKS SUPERVISOR, Skilled Disciplines Monitor patient's vital signs every [...] goal interventions scheduled/documen ana in this visit PRINCIPAL RESEARCH ECONOMIST oral motor problems Disciplines: Speech Language Pathology Review patient's current oral motor status and create plan. 02/09/2024 Active - 2 problem interventions scheduled/documen ana in this visit Goals Goal Associated Problem Outcome Goal Met? Visit Notes Patient receives care at the most appropriate care setting Description: Patient receives care at the most appropriate care setting. Homebound Status No Measure vital signs during every home health visit during episode of care Description: Home drop worker to measure vital signs during every [...] (HEP) Description: Instruct patient/caregiver and perform HEP. Problem:PRINCIPAL RESEARCH ECONOMIST oral motor problems Completed Review and continued development of HEP for intelligibility with patient and patient caregiver demonstrating comprehenison. PRINCIPAL RESEARCH ECONOMIST speech articulation disorder treatments Description: Therapeutic exercise Problem:PRINCIPAL RESEARCH ECONOMIST oral motor problems Completed Review of intelligibility strategies including overarticulation (exaggerate your mouth movements), and spacing and phrasing (space out your words) with patient demonstrating comprehension. Targeted use of intelligibility strategies at the sentence, short paragraph level with setup assistance required at 90% intelligibility. documented in this encounter Care Teams Wine Consultant Relationship Specialty Start Date End Date Wolfgang Serrano MD PCP - General Family Medicine 05/05/23 08/02/24 Unknown, Notinfile 03/12/22 [place] [address] [address] [facility] [address] [place] [address] 03/12/22 Chuy Enriquez MD [address] [facility] [address] [place] [address] Consulting Physician Pulmonary Disease 10/13/23 Luis Felipe Cedillo MD [address] [facility] [address] [place] [address] Consulting Physician Gastroenterology 10/13/23 Marlene Thornton MD [address] [facility] [address] [address] Surgeon Vascular Surgery 11/10/23 documented as of this encounter
--- OUTSIDE RECORDS SUMMARY | 2024-10-11 01:53 | XMS_ITS | Encounter Summary ---
Author Organization [facility] Healthcare Address [address] [place] [address] Care Team Providers Care Door To Door Lead Generation Name Role Phone Wolfgang Serrano MD Primary Care Provider Unknown, Notinfile Unavailable Unavailable Santino Funk MD Unavailable Chuy Enriquez MD Unavailable [phone] Luis Felipe Cedillo MD Unavailable Marlene Thornton MD Unavailable [phone] Reason for Visit * Auth/Cert (Routine) Specialty Diagnoses / Procedures Referred By Contac t Referred To Contact Referral ID Status Reason Start Date Expiration Date Visits Re quested Visits Authorized [id number] 1 60 Encounter Details Date Type Department Care Team (Late st Contact Info) Description 02/17/2024 11:30 AM CDT Home Care Visit [facility] [address] [address] [address] [place] [address] Kavya Basurto, OT OT REASSESSMENT Social History Tobacco Use Types Packs/Day [...] materials from doctor or pharmacy Sometimes 01/09/2024 [facility] Utilities Answer Date Recorded In the past 12 months has e [employer], gas, oil, or water company threatened to [...] any clubs o r organizations such as rastafarian groups, unions, fraternal or athletic groups, or [...] Patient Health Questionnaire-2 Score 0 01/06/2024 [facility] [place] of Occupat ional Health - Occupational [...] No 01/06/2024 Housing Stability Vital Sign Answer Keyn e Recorded In the last 12 months, [...] place to sleep or slept in a custodial (including now)? No 12/16/2023 Personal Safety Answer Date Recorded Have you ever been in or are you currently in a harmful physical or emotional relationship or is someone making you feel afraid or unsafe? Denies 12/15/2023 Sex and Gender Information Value Date Recorded Sex Assigned at Not on file Legal Sex Male 3:25 PM GREEK PROFESSOR Gender Identity Not on file Sexual Orientation Not on file documented as of this encounter Last Filed Vital Signs Vital Sign Reading Time Taken Comments Blood Pressure 118/76 02/17/2024 11:18 AM CDT Pulse 68 02/17/2024 11:18 AM CDT Temperature 36.1 ??C (96.9 ??F) 02/17/2024 11:18 AM C DT Respiratory Rate 18 02/17/2024 11:18 AM CDT Oxygen Saturation 99% 02/17/2024 11:18 AM CDT Inhaled Oxygen Concentration - - Weight - - Height - - Body Mass Index - - documented in this encounter Miscellaneous Notes * Home Health Visit Narrative - Kavya Basurto, OT - 02/17/2024 11:23 AM CDT Pt. was referred to HHOT s/p admission to [facility] from 12/07/2023 - 12/15/2023 (8 days) secondary [...] arm working. Pt. was seen for HHOT reassessment. Pt.'s goals remain appropriate. Plan to see pt. 2 times a week for 2 more weeks and 1 time a week for 1 week until the end of cert to address remaining goals. Pt. in agreement with continuing HHOT and POC. * Home Health Plan for Next Visit - Kavya Basurto OT - 02/17/2024 11:09 AM CDT Reason for today's visit HHOT reassessment Discuss plan of care with pt. Discharge planning to self and family once OT goals are addressed Plan for next visit UE positioning, IADL's, and balance documented in this encounter Plan of Treatment Upcoming Encounters Date Type Department Care Team (Latest Contact Info) Description 10/23/2024 10:00 AM GREEK PROFESSOR Hospital Encounter [facility] Operating Room [address] [place] [address] [place] [address] [facility] [address] [place], [place] [id number] 10/23/2024 10:00 AM GREEK PROFESSOR - 10/23/2024 1:00 PM GREEK PROFESSOR Surgery [facility] Operating Room [address] [place] [address] [place] [address] [facility] [address] [place] [address] ARTHROPLASTY TOTAL KNEE LEFT Scheduled Procedures Name Priority Associated Diagnoses Date/Ti me ARTHROPLASTY TOTAL KNEE left knee osteoarthritis 10/23/2024 10:00 AM GREEK PROFESSOR ESOPHAGOGASTRODUODENOSCOPY Dysphagia, unspecified type documented as of this encounter Visit Diagnoses Not on filedocumented in this encounter Home Health Visit - Care Plan Visit Details Visit Type -OT Reassessment Discipline -Occupational Therapy Problems Problem Description Start Date Status Goals Interventions Homebound Status Disciplines: Skilled Disciplines Patient's homebound status 01/09/2024 Active 1 goal linked to scheduled/documen ana intervention 1 goal intervention scheduled/docume nted in this visit Monitor patient's vital signs every home health visit Disciplines: SN, PT, OT, EDUCATIONAL FUNDRAISING DIRECTOR, DIGITAL ADVISOR, Skilled Disciplines Monitor patient's vital signs every [...] comfort 01/09/2024 Active 1 goal linked to scheduled/documen ana intervention 1 goal intervention scheduled/docume nted in this visit OT Stroke/CVA Disciplines: Occupational Therapy After care related to stroke/CVA 01/14/2024 Active 2 goals linked to scheduled/documen ana interventions OT Alteration in Coping Disciplines: Occupational Therapy Impaired ability to cope with current stressors 01/14/2024 Active 1 goal linked to scheduled/documen ana intervention OT Activity Tolerance/Energ y Conservation Disciplines: Occupational Therapy Impaired activity tolerance for functional activity 01/14/2024 Active 1 goal linked to scheduled/documen ana intervention 1 problem intervention scheduled/docume nted in this visit OT Impaired UE Function and/or Fine Motor Skills Disciplines: Occupational Therapy Impaired functional use of upper extremity and hands 01/14/2024 Active 3 goals linked to scheduled/documen ana interventions 1 problem intervention scheduled/docume nted in this visit OT Impaired IADLs Disciplines: Occupational Therapy Impaired independence in house management/homemaki ng activities 01/14/2024 Active 1 goal linked to scheduled/documen ana intervention OT Impaired Functional Mobility/Balanc e Disciplines: Occupational Therapy Impaired functional mobility/balance 01/14/2024 Active 3 goals linked to scheduled/documen ana interventions OT Impaired ADLs Disciplines: Occupational Therapy Impaired independence in self-care, ADLs. 01/14/2024 Active 1 goal linked to scheduled/documen ana intervention OT Medication Management as an ADL Disciplines: Occupational Therapy Impaired ability to correctly manage medications as an ADL 01/14/2024 Active 1 goal linked to scheduled/documen ana intervention Goals Goal Associated Problem Outcome Goal Met? Visit Notes Patient receives care at the most appropriate care setting Description: Patient receives care at the most appropriate care setting. Homebound Status No Measure vital signs during every home health visit during episode of care Description: Home autocad detailer to measure vital signs during every home [...] pain has been reduced or controlled Description: Patient/caregiver/oj jimenez will verbalize satisfaction with the patients level of pain and symptom control. Pain No Improvement in caregiver knowledge Description: Patient/caregiver will demonstrate improved knowledge of CVA and compensation strategies by 03/08/24 OT Stroke/CVA Progressing No Patient/caregiver will demonstrate improved knowledge of CVA and compensation strategies by 02/19/24. completed Cognition: Understanding and performance of compensatory strategies. Description: Patient/caregiver will demonstrate ability to utilize compensatory techniques/strategies by 03/08/24 OT Stroke/CVA Progressing No Patient/caregiver will demonstrate ability to utilize compensatory techniques/strategie s by 02/19/24. completing Improved management of stressors Description: Patient will demonstrate improved ability to perform ADL's and IADL's and/ or manage pain by utilizing relaxation strategies by 03/08/24 OT Alteration in Coping Progressing No Patient will demonstrate improved ability to perform ADL's and IADL's and/ or manage pain by utilizing relaxation strategies by 02/19/24. completing Improvement in activity tolerance Description: Using energy conservation techniques, patient to perform ADL's and IADL's with a score of 13 or less on the ISIS scale using energy conservation techniques by 02/19/24 OT Activity Tolerance/Energy Conservation No Using energy conservation techniques, patient to perform ADL's and IADL's with a score of 13 or less on the ISIS scale using energy conservation techniques by 02/19/24. Pt. rates ADL's and IADL's as a somewhat hard activity which is a 13 on the ISIS scale Knowledge of taping techniques Description: Patient/caregiver will demonstrate knowledge of taping techniques for joint support, muscle inhibition, posture and/or pain relief by 03/08/24 OT Impaired UE Function and/or Fine Motor Skills Progressing No Patient/caregiver will demonstrate knowledge of taping techniques for joint support, muscle inhibition, posture and/or pain relief by 02/19/24. completing Positioning with UE Description: Patient/caregiver will demonstrate understanding of positioning for left UE by 03/08/24 OT Impaired UE Function and/or Fine Motor Skills Progressing No Patient/caregiver will demonstrate understanding of positioning for left UE by 02/19/24. completing Performance with HEP Description: Patient/caregiver to perform progressed HEP for UE function and/or fine motor skills by 03/08/24 OT Impaired UE Function and/or Fine Motor Skills Progressing No Patient/caregiver to perform progressed HEP for UE function and/or fine motor skills by 02/19/24. completing Improvement in IADL performance Description: Patient to perform light house management/homemaking activities with mod I by 03/08/24 OT Impaired IADLs Progressing No Patient to perform light house management/homemakin g activities with mod I by 02/19/24. Pt. is starting to complete light IADL's Improvement in ADL related transfers Description: Patient/caregiver will demonstrate sit to stand transfer with indep using DME as needed by 03/08/24 Patient/caregiver will demonstrate shower transfer with indep using DME as needed by 03/08/24 OT Impaired Functional Mobility/Balance Progressing No Patient/caregiver will demonstrate sit to stand transfer with indep using DME as needed by 02/19/24. indep to cga Patient/caregiver will demonstrate bed transfer with indep using DME as needed by 02/19/24 indep Patient/caregiver will demonstrate toilet transfer with indep using DME as needed by 02/19/24. indep Patient/caregiver will demonstrate shower transfer with indep using DME as needed by 02/19/24. cga Improve balance during functional activities Description: Patient will tolerate and safely perform/participate in ADL's and IADL's by 03/08/24 Patient will safely ambulated to and from garage to get food out of refrigerator by 03/08/24 OT Impaired Functional Mobility/Balance Progressing No Patient will tolerate and safely perform/participate in ADL's and IADL's by 02/19/24. Pt. stated that his balance has gotten a little better Patient will safely ambulated to and from garage to get food out of refrigerator by 02/19/24. Pt. is mod I to get food out of inside refrigerator but has not yet made it out to the outside refrigerator Obtaining and use of assistive device/DME Description: Patient to perform ADL's and IADL's with assistive device/DME and mod I by 03/08/24 OT Impaired Functional Mobility/Balance Progressing No Patient to perform ADL's and IADL's with assistive device/DME and mod I by 02/19/24. completing Improvement in ADL performance Description: Patient will complete dressing tasks with adaptive equipment requiring mod I by 03/08/24 OT Impaired ADLs Progressing No Patient will complete dressing tasks with adaptive equipment requiring mod I by 02/19/24. min assist to mod assist Patient/caregiver to improve with medication management Description: Patient/caregiver will demonstrate success with medication routine using compensation strategies within 02/12/24 OT Medication Management as an ADL Completed Yes Patient/caregiver will demonstrate success with medication routine using compensation strategies within 02/12/24. completed Interventions Intervention Associated Problem/Goal Status Variance Visit [...] on the importance of listening to your body and knowing if something is feeling off. Pt. demonstrated good understanding of information Positioning Description: Patient/caregiver education for proper positioning. Problem:OT Impaired UE Function and/or Fine Motor Skills Completed Educated pt. on the importance of making sure LUE is positioning correctly to help avoiding pain. Pt. demonstrated good understanding of information documented in this encounter Care Teams Door To Door Lead Generation Relationship Specialty Start Date End Date Wolfgang Serrano MD PCP - General Family Medicine 05/05/23 08/02/24 Unknown, Notinfile 03/12/22 [place] [address] [place] [address] 03/12/22 Chuy Enriquez MD [address] [place] [address] Consulting Physician Pulmonary Disease 10/13/23 Luis Felipe Cedillo MD [address] [place] [address] Consulting Physician Gastroenterology 10/13/23 Marlene Thornton MD [address] [place] [address] Surgeon Vascular Surgery 11/10/23 documented as of this encounter
--- OUTSIDE RECORDS SUMMARY | 2024-10-11 01:53 | XMS_ITS | Encounter Summary ---
Author Organization [facility] Healthcare Address [address] [place] [address] Care Team Providers Care Freight Shipping Agent Name Role Phone Wolfgang Serrano MD Primary Care Provider Unknown, Notinfile Unavailable Unavailable Santino Funk MD Unavailable Chuy Enriquez MD Unavailable Luis Felipe Cedillo MD Unavailable [phone] Marlene Thornton MD Unavailable Reason for Visit * Reason Comments Stroke * Auth/Cert (Routine) Specialty Diagnoses / Procedures Referred By Contac t Referred To Contact Referral ID Status Reason Start Date Expiration Date Visits Re quested Visits Authorized [id number] 1 60 Encounter Details Date Type Department Care Team (Late st Contact Info) Description 02/24/2024 10:30 AM CDT Home Care Visit [facility] [address] [address] [address] [place] [address] Jacque Tolliver, PT PT HOME VISIT Social History Tobacco Use [...] materials from doctor or pharmacy Sometimes 01/09/2024 [facility] Utilities Answer Date Recorded In the past 12 months has th e [place], gas, oil, or water company threatened to [...] often do you attend chur ch or jain services? More than 4 times per year 12/16/2023 Do you belong to any clubs o r organizations such as holiness groups, unions, fraternal or athletic groups, or [...] Questionnaire-2 Score 0 01/06/2024 [facility] [place] of Occupat ional Health - Occupational Stress [...] on file Legal Sex Male 3:25 PM BOLT MAN Gender Identity Not on file Sexual Orientation Not on file documented as of this encounter Last Filed Vital Signs Vital Sign Reading Time Taken Comments Blood Pressure 110/60 02/24/2024 12:00 AM CDT Pulse 69 02/24/2024 12:00 AM CDT Temperature 36.3 ??C (97.4 ??F) 02/24/2024 12:00 AM C DT Respiratory Rate 18 02/24/2024 12:00 AM CDT Oxygen Saturation 98% 02/24/2024 12:00 AM CDT Inhaled Oxygen Concentration - - Weight - - Height - - Body Mass Index - - documented in this encounter Miscellaneous Notes * Home Health Plan for Next Visit - Jacque Tolliver, PT - 02/24/2024 11:15 AM CDT Reason for today's visit: gait training Discuss plan of care with pt Discharge planning: will continue PT POC Plan for next visit: will continue to practice steps documented in this encounter Plan of Treatment Upcoming Encounters Date Type Department Care Team (Latest Contact Info) Description 10/23/2024 10:00 AM BOLT MAN Hospital Encounter Operating Room [address] [place] [address] [place] [address] [id number] 10/23/2024 10:00 AM BOLT MAN - 10/23/2024 1:00 PM BOLT MAN Surgery Operating Room [address] [place] [address] [place] [address] [address] ARTHROPLASTY TOTAL KNEE LEFT Scheduled Procedures Name Priority Associated Diagnoses Date/Ti me ARTHROPLASTY TOTAL KNEE left knee osteoarthritis 10/23/2024 10:00 AM BOLT MAN ESOPHAGOGASTRODUODENOSCOPY Dysphagia, unspecified type documented as of [...] home health visit Disciplines: SN, PT, OT, BUCKLE INSPECTOR, PARI MUTUEL TICKET CASHIER, Skilled Disciplines Monitor patient's vital signs every home health visit. 01/09/2024 Active 1 goal linked to scheduled/docume nted intervention 1 goal intervention scheduled/documen ana in this visit Infection Prevention Disciplines: Skilled Disciplines Infection Prevention 01/09/2024 Active 1 goal linked to scheduled/docume nted intervention 3 goal interventions scheduled/documen ana in this visit [...] Aftercare related to stroke/CVA 01/09/2024 Active - 2 problem interventions scheduled/documen ana in this visit Goals Goal Associated Problem Outcome Goal Met? Visit Notes Patient receives care at the most appropriate care setting Description: Patient receives care at the most appropriate care setting. Homebound Status No Measure vital signs during every home health visit during episode of care Description: Home bag machine tender to measure vital signs during every home [...] pain has been reduced or controlled Scheduled Home Exercise Program (HEP) Description: Instruct patient/caregiver and perform HEP. Problem:PT Stroke/CVA Completed Gait/Stair Training Description: Instruct patient/caregiver and perform gait/stair training. Problem:PT Stroke/CVA Completed documented in this encounter Care Teams Freight Shipping Agent Relationship Specialty Start Date End Date Wolfgang Serrano MD PCP - General Family Medicine 05/05/23 08/02/24 Unknown, Notinfile 03/12/22 [place] [address] [address] 03/12/22 Chuy Enriquez MD [address] [facility] [address] [place] [address] Consulting Physician Pulmonary Disease 10/13/23 Luis Felipe Cedillo MD [address] [facility] [address], [place] [id number] Consulting Physician Gastroenterology 10/13/23 Marlene Thornton MD [address] [facility] [address] [place] [address] Surgeon Vascular Surgery 11/10/23 documented as of this encounter
--- OUTSIDE RECORDS SUMMARY | 2024-10-11 01:53 | XMS_ITS | Encounter Summary ---
Author Organization [facility] Healthcare Address [address] [place] [address] Care Team Providers Care Machine Adjuster Leader Case Trim Name Role Phone Wolfgang Serrano MD Primary Care Provider [phone] Unknown, Notinfile Unavailable Unavailable Santino Funk MD Unavailable [phone] Chuy Enriquez MD Unavailable Luis Felipe Cedillo MD Unavailable [phone] Marlene Thornton MD Unavailable Reason for Visit * Auth/Cert (Routine) Specialty Diagnoses / Procedures Referred By Contac t Referred To Contact Referral ID Status Reason Start Date Expiration Date Visits Re quested Visits Authorized [id number] 1 60 Encounter Details Date Type Department Care Team (Late st Contact Info) Description 02/25/2024 1:00 PM CDT Home Care Visit [facility] [address] [address] [address] [place] [address] Sarah Paulino COTA OT HOME [...] materials from doctor or pharmacy Sometimes 01/09/2024 [facility] Utilities Answer Date Recorded In [...] often do you attend chur ch or denominational services? More than 4 times per year 12/16/2023 Do you belong to any clubs o r organizations such as presybeterian groups, unions, fraternal or athletic groups, or [...] Recorded Patient Health Questionnaire-2 Score 0 01/06/2024 [facility] [place] of Occupat ional Health - Occupational Stress [...] on file Legal Sex Male 3:25 PM SHOE FITTER Gender Identity Not on file Sexual Orientation Not on file documented as of this encounter Last Filed Vital Signs Vital Sign Reading Time Taken Comments Blood Pressure 126/68 02/25/2024 1:41 PM CDT Pulse 68 02/25/2024 1:41 PM CDT Temperature 36.8 ??C (98.2 ??F) 02/25/2024 1:41 PM CD T Respiratory Rate 18 02/25/2024 1:41 PM CDT Oxygen Saturation 96% 02/25/2024 1:41 PM CDT Inhaled Oxygen Concentration - - Weight - - Height - - Body Mass Index - - documented in this encounter Miscellaneous Notes * Home Health Plan for Next Visit - Sarah Paulino COTA - 02/25/2024 1:33 PM CDT Reason for today's visit: L UE AAROM/PROM, tabletop exercises, weight bearing activity to facilitate L UE strength, use of air splint for shoulder flexion Discussed plan of care with pt and pt in agreement with POC Discharge planning: home with spouse's assistance, transition to outpatient therapy Plan for next visit: Continued instruction on exercises/activities to increase strength in L UE, activities to improve standing balance, safe techniques for completing IADL tasks. documented in this encounter Plan of Treatment Upcoming Encounters Date Type Department Care Team (Latest Contact Info) Description 10/23/2024 10:00 AM SHOE FITTER Hospital Encounter [facility] Operating Room [address] [place] [address] [place] [address] [address] 10/23/2024 10:00 AM SHOE FITTER - 10/23/2024 1:00 PM SHOE FITTER Surgery [facility] Operating Room [address] [place] [address] [place] [address] [address] ARTHROPLASTY TOTAL KNEE LEFT Scheduled Procedures Name Priority Associated Diagnoses Date/Ti me ARTHROPLASTY TOTAL KNEE left knee osteoarthritis 10/23/2024 10:00 AM SHOE FITTER ESOPHAGOGASTRODUODENOSCOPY Dysphagia, unspecified type documented as of [...] home health visit Disciplines: SN, PT, OT, TECHNICAL ADMINISTRATOR, LOTTERY OFFICE MANAGER, Skilled Disciplines Monitor patient's vital signs [...] intervention scheduled/documen ana in this visit OT Activity Tolerance/Energ y Conservation Disciplines: Occupational Therapy Impaired activity tolerance for functional activity 01/14/2024 Active - 1 problem intervention scheduled/documen [...] visit during episode of care Description: Home behavior clinician to measure vital signs during every [...] pain has been reduced or controlled Completed Energy Conservation Education Description: Instruct patient/caregiver in techniques for improved activity tolerance Problem:OT Activity Tolerance/Energy Conservation Completed Pt displays Good-/Fair+ endurance (10/11 on Aliza RPE scale) during OT visit, while completing HEP, standing at countertop to perform weight bearing activity and transfers. Instructed pt to continue to perform HEP and functional tasks to increase strength and endurance, but incooperating rest breaks as well. Pt demonstrates good understanding. Positioning Description: Patient/caregiver education for proper positioning. Problem:OT Impaired UE Function and/or Fine Motor Skills Completed Instructed pt to continue to utilize rasheed sling during transfers and ambulation, and use of pillow to support L UE when sitting/lying. Pt demonstrates good understanding. Taping Description: Instruct in use of UE taping of left UE Problem:OT Impaired UE Function and/or Fine Motor Skills Completed Kiniesiotape on pt's L UE is still intact. Instructed pt to remove kinesiotape if skin becomes reddened or irritated. Pt demonstrates good understanding. Therapeutic Exercise Description: [...] to maintain safety. Pt demonstrates good understanding. Also instructed pt on performing L shoulder flexion using air splint. Pt was able to perform shoulder flexion on L UE, using air splint and requiring Max assist. Pt would benefit from continued instruction and use of air splint. Transfer Training Description: Instruct patient/caregiver and perform transfer training. Problem:OT Impaired Functional Mobility/Balance Completed Instructed pt on safe techniques for bed mobility (rolling to right, pushing off R UE while bringing LEs over EOB and use of bedrail to pull up) and bed transfer (scooting to edge of bed, proper foot positioning, pushing up with R UE, transferring to stronger side). Pt requires SBA/supervision for completing bed mobility and bed transfer. documented in this encounter Care Teams Machine Adjuster Leader Case Trim Relationship Specialty Start Date End Date Wolfgang Serrano MD PCP - General Family Medicine 05/05/23 08/02/24 Unknown, Notinfile 03/12/22 [place] [address] [facility] [address] [place] [address] 03/12/22 Chuy Enriquez MD [address] [place] [address] Consulting Physician Pulmonary Disease 10/13/23 Luis Felipe Cedillo MD [address] [facility] [facility] [address], [place] [address] Consulting Physician Gastroenterology 10/13/23 Marlene Thornton MD [address] [facility] [address], [place] [address] Surgeon Vascular Surgery 11/10/23 documented as of this encounter
--- OUTSIDE RECORDS SUMMARY | 2024-10-11 01:53 | XMS_ITS | Encounter Summary ---
Author Organization [facility] Healthcare Address [address] [place] [address] Care Team Providers Care Transport Operations Inspector Name Role Phone Wolfgang Serrano MD Primary Care Provider Unknown, Notinfile Unavailable Unavailable Santino Funk MD Unavailable Chuy Enriquez MD Unavailable Luis Felipe Cedillo MD Unavailable Marlene Thornton MD Unavailable [phone] Reason for Visit * Auth/Cert (Routine) Specialty Diagnoses / Procedures Referred By Contac t Referred To Contact Referral ID Status Reason Start Date Expiration Date Visits Re quested Visits Authorized [id number] 1 60 Encounter Details Date Type Department Care Team (Late st Contact Info) Description 02/16/2024 3:30 PM CDT Home Care Visit [facility] [address] [address] [address] [place] [address] Jacque Tolliver, PT PT REASSESSMENT Social History Tobacco Use Types Packs/Day [...] materials from doctor or pharmacy Sometimes 01/09/2024 [facility] Utilities Answer Date Recorded In the [...] any clubs o r organizations such as temple groups, unions, fraternal or athletic groups, or [...] Recorded Patient Health Questionnaire-2 Score 0 01/06/2024 [facility] of Occupat ional Health - Occupational Stress [...] place to sleep or slept in a alf (including now)? No 12/16/2023 Personal Safety Answer Date Recorded Have you ever been in or are you currently in a harmful physical or emotional relationship or is someone making you feel afraid or unsafe? Denies 12/15/2023 Sex and Gender Information Value Date Recorded Sex Assigned at Not on file Legal Sex Male 3:25 PM RELIEF DOCKING MASTER Gender Identity Not on file Sexual Orientation Not on file documented as of this encounter Miscellaneous Notes * Home Health Visit Narrative - Jacque Tolliver, PT - 02/16/2024 3:35 PM CDT Patient states his walking is getting better. Patient states his L leg still feels weak and painfulwith L LE knee OA. His main concern is to advance to stair training, improving balance and gaining independence before advancing to outpatient PT. patient is pleased with agency services and agrees with PT POC documented in this encounter Plan of Treatment Upcoming Encounters Date Type Department Care Team (Latest Contact Info) Description 10/23/2024 10:00 AM RELIEF DOCKING MASTER Hospital Encounter [facility] Operating Room [address] [place] [address] [place] [address] [address] [facility] [address] [place] [address] 10/23/2024 10:00 AM RELIEF DOCKING MASTER - 10/23/2024 1:00 PM RELIEF DOCKING MASTER Surgery [facility] Operating Room [address] [place] [address] [place] [address] [address] [facility] [address] [place] [address] ARTHROPLASTY TOTAL KNEE LEFT Scheduled Procedures Name Priority Associated Diagnoses Date/Ti me ARTHROPLASTY TOTAL KNEE left knee osteoarthritis 10/23/2024 10:00 AM RELIEF DOCKING MASTER ESOPHAGOGASTRODUODENOSCOPY Dysphagia, unspecified type documented as of this encounter Visit Diagnoses Not on filedocumented in this encounter Home Health Visit - Care Plan Visit Details Visit Type -PT Reassessment Discipline -Physical Therapy Problems Problem Description Start Date Status Goals Interventions Homebound Status Disciplines: Skilled Disciplines Patient's homebound status 01/09/2024 Active 1 goal linked to scheduled/docume nted intervention 1 goal intervention scheduled/documen ana in this visit Monitor patient's vital signs every home health visit Disciplines: SN, PT, OT, BULB SORTER, TELECOM NETWORK MANAGER, Skilled Disciplines Monitor patient's vital signs [...] to scheduled/docume nted intervention 1 goal intervention scheduled/docinocencio perez in this visit Goals Goal Associated Problem Outcome Goal Met? Visit Notes Patient receives care at the most appropriate care setting Description: Patient receives care at the most appropriate care setting. Homebound Status No Measure vital signs during every home health visit during episode of care Description: Home optimization specialist to measure vital signs during every home [...] Scheduled documented in this encounter Care Teams Transport Operations Inspector Relationship Specialty Start Date End Date Wolfgang Serrano MD PCP - General Family Medicine 05/05/23 08/02/24 Unknown, Notinfile 03/12/22 [place] [address] [facility] [address] [place] [address] 03/12/22 Chuy Enriquez MD [address] [facility] [address] [place] [address] Consulting Physician Pulmonary Disease 10/13/23 Luis Felipe Cedillo MD [address] [place] [address] Consulting Physician Gastroenterology 10/13/23 Marlene Thornton MD [address] [place] [address] Surgeon Vascular Surgery 11/10/23 documented as of this encounter
--- OUTSIDE RECORDS SUMMARY | 2024-10-11 01:53 | XMS_ITS | Encounter Summary ---
Author Organization [facility] Healthcare Address [address] [place] [address] Care Team Providers Care Speech Scientist Name Role Phone Wolfgang Serrano MD Primary Care Provider Unknown, Notinfile Unavailable Unavailable Santino Funk MD Unavailable [phone] Chuy Enrqiuez MD Unavailable [phone] Luis Felipe Cedillo MD Unavailable [phone] Marlene Thornton MD Unavailable Reason for Visit * Auth/Cert (Routine) Specialty Diagnoses / Procedures Referred By Contac t Referred To Contact Referral ID Status Reason Start Date Expiration Date Visits Re quested Visits Authorized [id number] 1 60 Encounter Details Date Type Department Care Team (Late st Contact Info) Description 02/09/2024 10:00 AM CDT Home Care Visit [facility] Health [address] [place] [address] Anjelica Winter, DEVELOPER ADVOCATE DEVELOPER ADVOCATE REASSESSMENT Social History Tobacco Use Types Packs/Day [...] materials from doctor or pharmacy Sometimes 01/09/[address] [facility] Utilities Answer Date Recorded In the past 12 months has e [employer], gas, oil, or water company threatened to [...] often do you attend chur ch or faith services? More than 4 times per year 12/16/2023 Do you belong to any clubs o r organizations such as sikhism groups, unions, fraternal or athletic groups, or [...] Recorded Patient Health Questionnaire-2 Score 0 01/06/2024 [facility] [place] of Occupat ional Health - Occupational [...] place to sleep or slept in a halfway (including now)? No 12/16/2023 Personal Safety Answer Date Recorded Have you ever been in or are you currently in a harmful physical or emotional relationship or is someone making you feel afraid or unsafe? Denies 12/15/2023 Sex and Gender Information Value Date Recorded Sex Assigned at Not on file Legal Sex Male 3:25 PM LEGAL DOCUMENT SPECIALIST Gender Identity Not on file Sexual Orientation Not on file documented as of this encounter Last Filed Vital Signs Vital Sign Reading Time Taken Comments Blood Pressure 122/78 02/09/2024 2:44 PM CDT Pulse 71 02/09/2024 2:44 PM CDT Temperature 36.5 ??C (97.7 ??F) 02/09/2024 2:44 PM CD T Respiratory Rate 18 02/09/2024 2:44 PM CDT Oxygen Saturation 95% 02/09/2024 2:44 PM CDT Inhaled Oxygen Concentration - - Weight - - Height - - Body Mass Index - - documented in this encounter Miscellaneous Notes * Home Health Plan for Next Visit - Anjelica Winter, MONA - 02/09/2024 2:37 PM CDT Reason for today's visit: skilled ST services for swallowing and cognitive communication abilities Discuss plan of care with patient and patient caregiver. Discharge planning: DC when goals are met or max potential is reached Plan for next visit: therex, education, HEP development documented in this encounter Plan of Treatment Upcoming Encounters Date Type Department Care Team (Latest Contact Info) Description 10/23/2024 10:00 AM LEGAL DOCUMENT SPECIALIST Hospital Encounter [facility] Operating Room [address] [place] [address] [place] [address] [address] 10/23/2024 10:00 AM LEGAL DOCUMENT SPECIALIST - 10/23/2024 1:00 PM LEGAL DOCUMENT SPECIALIST Surgery [facility] Operating Room [address] [place] [address] [place] [address] [address] ARTHROPLASTY TOTAL KNEE LEFT Scheduled Procedures Name Priority Associated Diagnoses Date/Ti me ARTHROPLASTY TOTAL KNEE left knee osteoarthritis 10/23/2024 10:00 AM LEGAL DOCUMENT SPECIALIST ESOPHAGOGASTRODUODENOSCOPY Dysphagia, unspecified type documented as of this encounter Visit Diagnoses Not on filedocumented in this encounter Home Health Visit - Care Plan Visit Details Visit Type -DEVELOPER ADVOCATE Reassessment Discipline -Speech Language Pathology Problems Problem Description Start Date Status Goals Interventions Homebound Status Disciplines: Skilled Disciplines Patient's homebound status 01/09/2024 Active 1 goal linked to scheduled/documen ana intervention 1 goal intervention scheduled/docume nted in this visit Monitor patient's vital signs every home health visit Disciplines: SN, PT, OT, DEVELOPER ADVOCATE, EGG GRADER, Skilled Disciplines Monitor patient's vital signs every [...] goal interventions scheduled/docume nted in this visit DEVELOPER ADVOCATE Impaired Swallowing Disciplines: Speech Language Pathology Impaired swallow with oral phase dysphagia 01/14/2024 Active 2 goals linked to scheduled/documen ana interventions 3 problem interventions scheduled/docume nted in this visit Instruct/evalua te cognitive function Disciplines: Speech Language Pathology Review patient's current cognitive status and create management plan 01/14/2024 Active 2 goals linked to scheduled/documen ana interventions Goals Goal Associated Problem Outcome Goal Met? Visit Notes Patient receives care at the most appropriate care setting Description: Patient receives care at the most appropriate care setting. Homebound Status No Measure vital signs during every home health visit during episode of care Description: Home day treatment clinician/art therapist to measure vital signs during every home [...] contact EMS. DVT Prevention and Management No Follow swallow precautions Description: Patient will follow swallow precautions at independent level by 02/12/2024. DEVELOPER ADVOCATE Impaired Swallowing Completed Yes Improvement in swallowing ability Description: Patient will tolerate a least restrictive diet without clinical signs or symptoms of aspiration by 02/12/2024. Patient is making functional progress towards goal, extend goal meet date to 03/08/2024. DEVELOPER ADVOCATE Impaired Swallowing Progressing No Cognitive Status - Reassess Description: Patient will improve MOCA score to 26/30 by 02/12/2024. Patient making functional progress towards goal, extend goal meet date to 03/08/2024. Instruct/evaluate cognitive function Progressing No Cognitive Status - Assess Description: Assess cognitive status with MOCA by 01/14/2024. Instruct/evaluate cognitive function Completed Yes Interventions Intervention Associated Problem/Goal Status [...] (HEP) Description: Instruct patient/caregiver and perform HEP. Problem:DEVELOPER ADVOCATE Impaired Swallowing Completed Review and continued development of HEP for oral motor exercises with patient and patient caregiver demonstrating comprehension. Instruct appropriate strategies to prevent choking/aspiration Description: Instruct patient/caregiver on appropriate strategies to prevent choking / aspiration Problem:DEVELOPER ADVOCATE Impaired Swallowing Completed Review of safe swallow strategies including decreased rate, decreased bolus size, alternating liquids and solids, sitting up straight during and 30 - 45 minutes following oral intake, and adding extra moisture to foods when appropriate (extra sauce, gravy, condiments, syrup, etc) with patient demonstrating comprehension. Instruct on swallowing exercises Description: Teach swallow exercises Problem:DEVELOPER ADVOCATE Impaired Swallowing Completed Review of oral motor exercises including lingual documented in this encounter Care Teams Speech Scientist Relationship Specialty Start Date End Date Wolfgang Serrano MD PCP - General Family Medicine 05/05/23 08/02/24 Unknown, Notinfile 03/12/22 [place] [address] [facility] [address] [place] [address] 03/12/22 Chuy Enriquez MD [address] [facility] [address] [place] [address] Consulting Physician Pulmonary Disease 10/13/23 Luis Felipe Cedillo MD [address] [address] [address] Consulting Physician Gastroenterology 10/13/23 Marlene Thornton MD [address] [address] [place] [address] Surgeon Vascular Surgery 11/10/23 documented as of this encounter
--- OUTSIDE RECORDS SUMMARY | 2024-10-11 01:53 | XMS_ITS | Encounter Summary ---
Author Organization [facility] Healthcare Address [address] [place] [address] Care Team Providers Care Caramel Cutter Machine Name Role Phone Wolfgang Serrano MD Primary Care Provider [phone] Unknown, Notinfile Unavailable Unavailable Santino Funk MD Unavailable Chuy Enriquez MD Unavailable Luis Felipe Cedillo MD Unavailable Marlene Thornton MD Unavailable Reason for Referral * Diagnostic Imaging (Routine) - Closed Specialty Diagnoses / Procedures Referred By Contac t Referred To Contact Diagnoses Moderate malnutrition (CMS/HCC) (HCC) Dysphagia, unspecified type Procedures FL Esophagram, Single Contrast Yfn Roe MD [address] [facility] [address] [place] [address] Phone: tel: fax: [address] [phone] Referral ID Status Reason Start Date Expiration Date Visits Re quested Visits Authorized [id number] Closed 02/04/2024 03/05/2025 1 1 Reason for Visit * Diagnostic Imaging (Routine) - Closed Specialty Diagnoses / Procedures Referred By Contac t Referred To Contact Diagnoses Moderate malnutrition (CMS/HCC) (HCC) Dysphagia, unspecified type Procedures FL Esophagram, Single Contrast Yfn Roe MD [address] [place] [address] Phone: tel: fax: [address] [phone] Referral ID Status Reason Start Date Expiration Date Visits Re quested Visits Authorized [id number] Closed 02/04/2024 03/05/2025 1 1 Encounter Details Date Type Department Care Team (Latest Contact Info) Description 02/14/2024 11:15 AM CDT - 02/14/2024 11:59 PM CDT Hospital Encounter [facility] [address] [place] [id number] Moderate malnutrition (CMS/HCC); Dysphagia, unspecified type Discharge Disposition: Discharge to home or self care Social History Tobacco Use Types Packs/Day Years Used Date Smoking Tobacco: Former Cigarettes 1 966 1966 Smokeless Tobacco: Never Alcohol Use Standard [...] doctor or pharmacy Sometimes 01/09/2024 [facility] Utilities Answer Date Recorded In the past 12 months has th e [employer], gas, oil, or water company threatened to [...] often do you attend chur ch or episcopalian services? More than 4 times per year 12/16/2023 Do you belong to any clubs o r organizations such as baptism groups, unions, fraternal or athletic groups, or [...] Recorded Patient Health Questionnaire-2 Score 0 01/06/2024 [facility] of Occupat ional Health - Occupational [...] on file Legal Sex Male 3:25 PM TELEVISION STATION MANAGER Gender Identity Not on file Sexual Orientation Not on file documented as of this encounter Medications at Time of Discharge Advair HFA 230-21 mcg/actuation inhaler Inhale 2 puffs 2 (two) times a day 11/09/2023 albuterol HFA (PROVENTIL HFA,VENTOLIN HFA,PROAIR HFA) 90 mcg/actuation inhaler 2 puffs every 4 (four) hours as needed 02/03/2023 capsaicin 0.1 % creamIndications: Neuropathic Pain Apply [...] tablet (1,000 mcg total) by mouth daily donepeziL (ARICEPT) 10 mg tabletIndications :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) Take 1 tablet by mouth nightly 30 tablet 06/04/2023 Flovent HFA 44 mcg/actuation inhaler 08/25/2023 gabapentin (NEURONTIN) 300 mg capsule Take 2 capsules (600 mg total) by mouth 3 (three) times a day 11/16/2023 levothyroxine (SYNTHROID) 150 mcg tablet Take 1 [...] 11/07/[address] (PROTONIX) 40 mg EC tabletIndications :GI Bleed Take 1 tablet (40 mg total) by mouth 2 (two) times a day 180 tablet 01/06/2024 senna-docusate (PERICOLACE) 8.6-50 mgIndications:con stipation Take 2 tablets by mouth daily as needed for constipation tamsulosin (FLOMAX) 0.4 mg extended release capsule Take 1 capsule (0.4 mg total) by mouth nightly 01/29/2020 tiZANidine (ZANAFLEX) 2 mg tabletIndications :Muscle cramps TAKE 1 TABLET BY MOUTH EVERY 8 HOURS NEEDED FOR MUSCLE SPASM 60 tablet 09/08/2023 turmeric root extract 500 mg capsule Take 1,000 mg by mouth nightly aspirin 81 mg chewable tablet Take 1 tablet (81 mg total) by mouth daily 90 tablet 01/07/2024 06/14/20 lidocaine (ASPERCREME) 4 % adhesive patch,medicated Place 1 patch on the skin daily for 12 days 12 patch 10/03/2022 06/14/20 24 rosuvastatin (CRESTOR) 40 mg tabletIndications :Secondary Stroke Prevention Take 1 tablet (40 mg total) by mouth daily 90 tablet 01/07/2024 06/14/20 24 documented as of this encounter Discharge Disposition Disposition Code Departure Means Destination Discharge to home or self care documented in this encounter Miscellaneous Notes * Result Encounter Note - Yfn Roe MD - 02/14/2024 11:59 PM CDT Can we schedule him for EGD with endoflip with me before his appointment in April please. Maybe in March? I worry he is not a good POEM candidate documented in this encounter Plan of Treatment Upcoming Encounters Date Type Department Care Team (Latest Contact Info) Description 10/23/2024 10:00 AM TELEVISION STATION MANAGER Hospital Encounter [facility] Operating Room [address] [place] [address] [place] [phone] [place] [phone] 10/23/2024 10:00 AM TELEVISION STATION MANAGER - 10/23/2024 1:00 PM [facility] Surgery [facility] [address] [place] [address] [place] [address] [address] ARTHROPLASTY TOTAL KNEE LEFT Scheduled Procedures Name Priority Associated Diagnoses Date/Ti dc ARTHROPLASTY TOTAL KNEE left knee osteoarthritis 10/23/2024 10:00 AM TELEVISION STATION MANAGER ESOPHAGOGASTRODUODENOSCOPY Dysphagia, unspecified type documented as of this encounter Procedures Procedure Name Priority Date/Time Associated Diagnosis Comments FL ESOPHAGRAM, SINGLE CONTRAST Schedule Routine, Read Routine (OP Routine) 02/14/2024 12:03 PM CDT Moderate malnutrition (CMS/HCC) Dysphagia, unspecified type documented in this encounter Results * FL Esophagram, Single Contrast (02/14/2024 12:03 PM CDT) Anatomical Region Laterality Modality Body N/A Radio Fluoroscop y 02/14/2024 1:13 PM CDT Impressions 02/14/2024 4:21 PM CDT Distally patulous esophagus with persistent contrast column at 15 minutes after ingestion. ??No fluoroscopic evidence of dysmotility. Dictated by: Hima Rebollar M.D. The radiology attending physician has personally reviewed this study, and had reviewed and/or edited this written report and agrees with it. Electronically signed by: Ranulfo Lindsey M.D. Narrative 02/14/2024 4:21 PM CDT EXAMINATION: SINGLE CONTRAST BARIUM ESOPHAGRAM HISTORY: Dysphagia TECHNIQUE: The patient was given barium as well as effervescent crystals to drink, and multiple fluoroscopic and conventional overhead radiographs were obtained. ??Timed upright conventional radiographic images were. FINDINGS: The esophagus is patulous, most pronounced distally. ??The esophageal motility is normal. ??There is persistent retained contrast within the distal esophagus after 15 minutes of oral administration. The measurements of the contrast column per time points are as follows. ??Due to technical difficulties, a 5 minute image was unable to be obtained and thus a delayed image at 15 minutes was taken. 1 minutes: 3.6 cm transverse by by 2.1 cm craniocaudal. 2 minutes: 4.0 cm transverse by 1.7 cm craniocaudal. 15 minutes: 4.0 cm transverse by 1.4 cm craniocaudal. Multiple surgical clips project over the lower mediastinum and epigastrium. Procedure Note Ranulfo Lindsey MD - 02/14/2024 EXAMINATION: SINGLE CONTRAST BARIUM ESOPHAGRAM HISTORY: Dysphagia TECHNIQUE: The patient was given barium as well as effervescent crystals to drink, and multiple fluoroscopic and conventional overhead radiographs were obtained. Timed upright conventional radiographic images were. FINDINGS: The esophagus is patulous, most pronounced distally. The esophageal motility is normal. There is persistent retained contrast within the distal esophagus after 15 minutes of oral administration. The measurements of the contrast column per time points are as follows. Due to technical difficulties, a 5 minute image was unable to be obtained and thus a delayed image at 15 minutes was taken. 1 minutes: 3.6 cm transverse by by 2.1 cm craniocaudal. 2 minutes: 4.0 cm transverse by 1.7 cm craniocaudal. 15 minutes: 4.0 cm transverse by 1.4 cm craniocaudal. Multiple surgical clips project over the lower mediastinum and epigastrium. IMPRESSION: Distally patulous esophagus with persistent contrast column at 15 minutes after ingestion. No fluoroscopic evidence of dysmotility. Dictated by: Hima Rebollar M.D. The radiology attending physician has personally reviewed this study, and had reviewed and/or edited this written report and agrees with it. Electronically signed by: Ranulfo Lindsey M.D. Yfn Roe MD IMG FLUOROSCOPY PROCE DURES Final Result documented in this encounter Visit Diagnoses Diagnosis Moderate malnutrition (CMS/HCC) Dysphagia, unspecified type documented in this encounter Administered Medications Inactive Administered Medications - up to 3 most recent administrations Medication Order MAR Action Action Date Dose Rate Site barium sulfate (E-Z-HD) 98 % suspension 135 mL 135 mL, oral, Once in imaging, contrast, Starting on Wed02/14/24 at 1202, For 2 doses, Pre-Op/Floor Contrast Given 02/14/2024 11:38 AM CDT 135 mL Contrast Given 02/14/2024 11:35 AM CDT 135 mL documented in this encounter Care Teams Caramel Cutter Machine Relationship Specialty Start Date End Date Wolfgang Serrano MD PCP - General Family Medicine 05/05/23 08/02/24 Unknown, Notinfile 03/12/22 [place] [address] [place] [address] 03/12/22 Chuy Enriquez MD [address] [place] [address] Consulting Physician Pulmonary Disease 10/13/23 Luis Felipe Cedillo MD [address] [place] [address] Consulting Physician Gastroenterology 10/13/23 Marlene Thornton MD [address] [facility] [address] [place] [address] Surgeon Vascular Surgery 11/10/23 documented as of this encounter
--- OUTSIDE RECORDS SUMMARY | 2024-10-11 01:53 | XMS_ITS | Encounter Summary ---
Author Organization [facility] Healthcare Address [address] [place] [address] Care Team Providers Care Inner Tube Inserter Name Role Phone Wolfgang Serrano MD Primary Care Provider [phone] Unknown, Notinfile Unavailable Unavailable Santino Funk MD Unavailable Chuy Enriquez MD Unavailable [phone] Luis Felipe Cedillo MD Unavailable Marlene Thornton MD Unavailable Reason for Visit * Auth/Cert (Routine) Specialty Diagnoses / Procedures Referred By Contac t Referred To Contact Referral ID Status Reason Start Date Expiration Date Visits Re quested Visits Authorized [id number] 1 60 Encounter Details Date Type Department Care Team (Late st Contact Info) Description 02/22/2024 10:00 AM CDT Home Care Visit [facility] Health [address] [address] [address] [place] [address] Bing Walker, PIPE ROLLER PT HOME VISIT Social History Tobacco Use [...] materials from doctor or pharmacy Sometimes 01/09/2024 [facility] Utilities Answer Date Recorded In the past [...] often do you attend chur ch or hoahaoism services? More than 4 times per year [...] Recorded Patient Health Questionnaire-2 Score 0 01/06/2024 [facility] of Occupat ional Health - Occupational Stress [...] on file Legal Sex Male 3:25 PM PELT GRADER Gender Identity Not on file Sexual Orientation Not on file documented as of this encounter Last Filed Vital Signs Vital Sign Reading Time Taken Comments Blood Pressure 112/76 02/22/2024 10:01 AM CDT Pulse 78 02/22/2024 10:01 AM CDT Temperature 36.2 ??C (97.1 ??F) 02/22/2024 10:01 AM C DT Respiratory Rate 18 02/22/2024 10:01 AM CDT Oxygen Saturation 97% 02/22/2024 10:01 AM CDT Inhaled Oxygen Concentration - - Weight - - Height - - Body Mass Index - - documented in this encounter Miscellaneous Notes * Home Health Plan for Next Visit - Bing Walker PTA - 02/22/2024 10:47 AM CDT Reason for today's visit pt seen today for continued education for safe transfers, amb with QC and rasheed walker, balance activtiy, HEP to improve balance, strength and endurance Discuss plan of care with pt Discharge planning discussed pts progress and he wants to work hard to get indep again Plan for next visit continue to progress with SBQC, balance, HEP and make safe amb indoors and outside the house if able documented in this encounter Plan of Treatment Upcoming Encounters Date Type Department Care Team (Latest Contact Info) Description 10/23/2024 10:00 AM PELT GRADER Hospital Encounter [facility] Operating Room [address] [place] [address] [place] [phone] [address] 10/23/2024 10:00 AM PELT GRADER - 10/23/2024 1:00 PM PELT GRADER Surgery [facility] Operating Room [address] [place] [address] [place] [address] [address] ARTHROPLASTY TOTAL KNEE LEFT Scheduled Procedures Name Priority Associated Diagnoses Date/Ti me ARTHROPLASTY TOTAL KNEE left knee osteoarthritis 10/23/2024 10:00 AM PELT GRADER ESOPHAGOGASTRODUODENOSCOPY Dysphagia, unspecified type documented as of [...] home health visit Disciplines: SN, PT, OT, GASKET SUPERVISOR, CHORE TENDER, Skilled Disciplines Monitor patient's vital signs every [...] visit during episode of care Description: Home robotics software engineer to measure vital signs during every home [...] at the most appropriate care setting Scheduled pt is homebound due to fall risk, req assistance out of the house, req assistance with ADLS, Monitor Vital Signs Description: Monitor blood pressure, [...] perform gait/stair training. Problem:PT Stroke/CVA Completed pt instructed on amb with SBQC with CGA/min assist. pts L foot does not clear the floor at times and pt had several LOB and req assistance to correct. pt instructed to continue to amb with rasheed walker until PT makes safe with QC. pt amb 80' with rasheed walker with CGA and again pts toes did not clear the floor but pt was able to correct. pt also has a posterior LOB when trying to increase foot clearance and req assistance to correct. pt instructed to have assistance at all times with amb Bed Mobility/Transfer Training Description: Instruct patient/caregiver and perform bed mobility/transfer training. Problem:PT Stroke/CVA Completed pt transfers from sit-stand and stand to sit, stand to sit and sit to supine with CGA. Balance Training/Activities Description: Instruct patient/caregiver and perform balance training activities. Problem:PT Stroke/CVA Completed pt performed sidestepping and forward/backward amb along railing, using R hand on rail for support and req vc for proper technique and to increase SHANA Therapeutic Exercise Description: Perform therapeutic exercise, progressing as tolerated. Problem:PT Stroke/CVA Completed pt in supine performed AP,QS,SLR,SAQ, HEEL SLIDES, HIP ABD, BRIDGING 15 REPS. Pt in standing heel raises, marching, hip abd,mini squats 15 reps. in sitting performed laq 15 reps. pt instructed to perform HEP 2-3x a day and req vc for proper technique, speed and control documented in this encounter Care Teams Inner Tube Inserter Relationship Specialty Start Date End Date Wolfgang Serrano MD PCP - General Family Medicine 05/05/23 08/02/24 Unknown, Notinfile 03/12/22 [place] [address] [place] [address] 03/12/22 Chuy Enriquez MD [address] [place] [address] Consulting Physician Pulmonary Disease 10/13/23 Luis Felipe Cedillo MD [address] [place] [address] Consulting Physician Gastroenterology 10/13/23 Marlene Thornton MD [address], [place] [address] Surgeon Vascular Surgery 11/10/23 documented as of this encounter
--- OUTSIDE RECORDS SUMMARY | 2024-10-11 01:53 | XMS_ITS | Encounter Summary ---
Author Organization [facility] Healthcare Address [address] [place] [address] Care Team Providers Care Personal Lines Underwriter Name Role Phone Wolfgang Serrano MD Primary Care Provider Unknown, Notinfile Unavailable Unavailable Santino Funk MD Unavailable Chuy Enriquez MD Unavailable Luis Felipe Cedillo MD Unavailable Marlene Thornton MD Unavailable Reason for Visit * Reason Comments Cerebrovascular Accident * Auth/Cert (Routine) Specialty Diagnoses / Procedures Referred By Contac t Referred To Contact Referral ID Status Reason Start Date Expiration Date Visits Re quested Visits Authorized [id number] 1 60 Encounter Details Date Type Department Care Team (Late st Contact Info) Description 02/17/2024 12:30 PM CDT Home Care Visit [facility] [address] [place] [address] Alaina Lopes PTA PT HOME [...] materials from doctor or pharmacy Sometimes 01/09/2024 [facility] Utilities Answer Date Recorded In the past 12 months has th e [employer], gas, oil, or water [employer] threatened to shut off services in your [...] any clubs o r organizations such as latter-day groups, unions, fraternal or athletic groups, or [...] Recorded Patient Health Questionnaire-2 Score 0 01/06/2024 [facility] of Occupat ional Health - Occupational Stress [...] on file Legal Sex Male 3:25 PM CLIENT SERVICES REPRESENTATIVE Gender Identity Not on file Sexual Orientation Not on file documented as of this encounter Last Filed Vital Signs Vital Sign Reading Time Taken Comments Blood Pressure 118/76 02/17/2024 1:31 PM CDT Pulse 84 02/17/2024 1:31 PM CDT Temperature 35.9 ??C (96.6 ??F) 02/17/2024 1:31 PM CD T Respiratory Rate 18 02/17/2024 1:31 PM CDT Oxygen Saturation 96% 02/17/2024 1:31 PM CDT Inhaled Oxygen Concentration - - Weight - - Height - - Body Mass Index - - documented in this encounter Miscellaneous Notes * Home Health Plan for Next Visit - Alaina Lopes, IT APPLICATION ARCHITECT - 02/17/2024 12:36 PM CDT Reason for today's visit gait, balance, strengthening, transfers Discuss plan of care with pt Discharge planning when goals are met or pt has achieved max benefit from P.T Plan for next visit gait training with SBQC pt is agreeable with poc pt requests using lesser device, SBQC and has ordered will need further instruction on use of the cane and instructed not to attempt on his own documented in this encounter Plan of Treatment Upcoming Encounters Date Type Department Care Team (Latest Contact Info) Description 10/23/2024 10:00 AM CLIENT SERVICES REPRESENTATIVE Hospital Encounter [facility] Operating Room [address] [place] [address] [place] [address] [address] 10/23/2024 10:00 AM CLIENT SERVICES REPRESENTATIVE - 10/23/2024 1:00 PM CLIENT SERVICES REPRESENTATIVE Surgery [facility] Operating Room [address] [place] [address] [place] [address] [id number] ARTHROPLASTY TOTAL KNEE LEFT Scheduled Procedures Name Priority Associated Diagnoses Date/Ti me ARTHROPLASTY TOTAL KNEE left knee osteoarthritis 10/23/2024 10:00 AM CLIENT SERVICES REPRESENTATIVE ESOPHAGOGASTRODUODENOSCOPY Dysphagia, unspecified type documented as [...] home health visit Disciplines: SN, PT, OT, MANAGER FOREIGN, SANDWICH AND DRINK CART OPERATOR, Skilled Disciplines Monitor patient's vital signs [...] visit during episode of care Description: Home line ordering clinician to measure vital signs during every [...] Goal:Demonstrate use of safety precautions Completed instructed to have assist at all times with gait activities and bed transfers rest as needed with activity use of gait belt with activities for safety Assess safety Description: Assess patient safety Problem:Safety [...] pain has been reduced or controlled Completed Home Exercise Program (HEP) Description: Instruct patient/caregiver and perform HEP. Problem:PT Stroke/CVA Completed instructed to perform hep 2 times a day while supine recommend supervision with standing strengthening Gait/Stair Training Description: Instruct patient/caregiver and perform gait/stair training. Problem:PT Stroke/CVA Completed gait with hemiwalker in the home over level surfaces for 80 ft x 3 CGA , left arm in sling, cues to improve posture pt does exhibit placement of hemiwalker and steps with only occasional cues to correct, mod effort with gait activiites and min sob noted pt exhibits occasional decreased stance left knee due to arthritis knee cues to engage quad with stance Bed Mobility/Transfer Training Description: Instruct patient/caregiver and perform bed mobility/transfer training. Problem:PT Stroke/CVA Completed sit to from stand from recliner depending on right ue to push himself up then to from wheelchair with cues to make sure brakes are locked at all times pivot transfers from wheelchair to bed to scoot back on bed as far as able and then pt is able to lift legs on bed does require CGA asst to complete Balance Training/Activities Description: Instruct patient/caregiver and perform balance training activities. Problem:PT Stroke/CVA Completed instructed pt on standing balance activities including standing static for 2 minutes with arms down to side, pt does sway but no lob feet were slightly apart then working with pt on weight shifting from side to side gait balance 4-/5 with hemiwalker Therapeutic Exercise Description: Perform therapeutic exercise, progressing as tolerated. Problem:PT Stroke/CVA Completed instructed pt on standing strengthening 10 reps each of heel toe raises, hip abd/add, hip flexion with knee flexion and partial knee bends with occasional cues on performing correcly then while supine 10 reps each of anklepumping, quad sets and saqs holding 3 seconds, hip abd/add and slr with cues to engage quad before completing and heelslides pt needs occasional cues to complete correctly pt reports has written hep of all exercises documented in this encounter Care Teams Personal Lines Underwriter Relationship Specialty Start Date End Date Wolfgang Serrano MD PCP - General Family Medicine 05/05/23 08/02/24 Unknown, Notinfile 03/12/22 [place] [address] [place] [address] 03/12/22 Chuy Enriquez MD [address] [place] [address] Consulting Physician Pulmonary Disease 10/13/23 Luis Felipe Cedillo MD [address] [facility] [address] [place] [address] Consulting Physician Gastroenterology 10/13/23 Marlene Thornton MD [address] [facility] [address] [place] [address] Surgeon Vascular Surgery 11/10/23 documented as of this encounter
--- OUTSIDE RECORDS SUMMARY | 2024-10-11 01:53 | XMS_ITS | Encounter Summary ---
Author Organization [facility] Healthcare Address [address] [place] [address] Care Team Providers Care Ice Platform Supervisor Name Role Phone Wolfgang Serrano MD Primary Care Provider [phone] Unknown, Notinfile Unavailable Unavailable Santino Funk MD Unavailable Chuy Enriquez MD Unavailable Luis Felipe Cedillo MD Unavailable Marlene Thornton MD Unavailable Reason for Visit * Auth/Cert (Routine) Specialty Diagnoses / Procedures Referred By Contac t Referred To Contact Referral ID Status Reason Start Date Expiration Date Visits Re quested Visits Authorized [id number] 1 60 Encounter Details Date Type Department Care Team (Late st Contact Info) Description 02/22/2024 Home Care Visit [facility] [address] [place] [address] Kavya Basurto, OT TELEPHONE ENCOUNTER Social History [...] from doctor or pharmacy Sometimes 01/09/2024 [facility] Utilities Answer Date Recorded [...] Questionnaire-2 Score 0 01/06/2024 [facility] [place] of Occupat ional Health - Occupational Stress [...] on file Legal Sex Male 3:25 PM SEARCH SPECIALIST Gender Identity Not on file Sexual Orientation Not on file documented as of this encounter Plan of Treatment Upcoming Encounters Date Type Department Care Team (Latest Contact Info) Description 10/23/2024 10:00 AM SEARCH SPECIALIST Hospital Encounter [facility] Operating Room [address] [place] [address] [place] [address] [address] [address] 10/23/2024 10:00 AM SEARCH SPECIALIST - 10/23/2024 1:00 PM SEARCH SPECIALIST Surgery [facility] Operating Room [address] [place] [address] [place] [address] [address] ARTHROPLASTY TOTAL KNEE LEFT Scheduled Procedures Name Priority Associated Diagnoses Date/Ti me ARTHROPLASTY TOTAL KNEE left knee osteoarthritis 10/23/2024 10:00 AM SEARCH SPECIALIST ESOPHAGOGASTRODUODENOSCOPY Dysphagia, unspecified type documented as of this encounter Visit Diagnoses Not on filedocumented in this encounter Care Teams Ice Platform Supervisor Relationship Specialty Start Date End Date Wolfgang Serrano MD PCP - General Family Medicine 05/05/23 08/02/24 Unknown, Notinfile 03/12/22 [place] [address] [facility] [address] [place] [address] 03/12/22 Chuy Enriquez MD [address] [facility] [address] [place] [address] Consulting Physician Pulmonary Disease 10/13/23 Luis Felipe Cedillo MD [address] [facility] [address] [place] [address] Consulting Physician Gastroenterology 10/13/23 Marlene Thornton MD [address] [facility] [address], [place] [address] Surgeon Vascular Surgery 11/10/23 documented as of this encounter
--- OUTSIDE RECORDS SUMMARY | 2024-10-11 01:53 | XMS_ITS | Encounter Summary ---
Author Organization [facility] Healthcare Address [address] [place] [address] Care Team Providers Care Aquaculture Director Name Role Phone Wolfgang Serrano MD Primary Care Provider [phone] Unknown, Notinfile Unavailable Unavailable Santino Funk MD Unavailable Chuy Enriquez MD Unavailable Luis Felipe Cedillo MD Unavailable Marlene Thornton MD Unavailable Reason for Visit * Auth/Cert (Routine) Specialty Diagnoses / Procedures Referred By Contac t Referred To Contact Referral ID Status Reason Start Date Expiration Date Visits Re quested Visits Authorized [id number] 1 60 Encounter Details Date Type Department Care Team (Late st Contact Info) Description 02/23/2024 4:00 PM CDT Home Care Visit [facility] [address] [address] [address] [place] [address] Sarah Paulino COTA OT HOME [...] materials from doctor or pharmacy Sometimes 01/09/2024 [facility] Utilities Answer Date Recorded In [...] often do you attend chur ch or shinto services? More than 4 times per year [...] Recorded Patient Health Questionnaire-2 Score 0 01/06/2024 [facility] [place] of Occupat ional Health - Occupational Stress [...] on file Legal Sex Male 3:25 PM ASP NET DEVELOPER Gender Identity Not on file Sexual Orientation Not on file documented as of this encounter Last Filed Vital Signs Vital Sign Reading Time Taken Comments Blood Pressure 128/74 02/23/2024 4:28 PM CDT Pulse 74 02/23/2024 4:28 PM CDT Temperature 36.8 ??C (98.3 ??F) 02/23/2024 4:28 PM CD T Respiratory Rate 18 02/23/2024 4:28 PM CDT Oxygen Saturation 96% 02/23/2024 4:28 PM CDT Inhaled Oxygen Concentration - - Weight - - Height - - Body Mass Index - - documented in this encounter Miscellaneous Notes * Home Health Plan for Next Visit - Sarah Paulino COTA - 02/23/2024 4:20 PM CDT Reason for today's visit: L UE HEP, activities to improve L UE strength/ROM (weight bearing activity, tabletop exercises) Discussed plan of care with pt and pt in agreement with POC Discharge planning: home with spouse/pd cg assistance Plan for next visit: Safe techniques for transfers and completing ADLs documented in this encounter Plan of Treatment Upcoming Encounters Date Type Department Care Team (Latest Contact Info) Description 10/23/2024 10:00 AM ASP NET DEVELOPER Hospital Encounter [facility] Operating Room [address] [place] [address] [place] [address] [address] 10/23/2024 10:00 AM ASP NET DEVELOPER - 10/23/2024 1:00 PM ASP NET DEVELOPER Surgery [facility] Operating Room [address] [place] [address] [place] [address] [address] ARTHROPLASTY TOTAL KNEE LEFT Scheduled Procedures Name Priority Associated Diagnoses Date/Ti me ARTHROPLASTY TOTAL KNEE left knee osteoarthritis 10/23/2024 10:00 AM ASP NET DEVELOPER ESOPHAGOGASTRODUODENOSCOPY Dysphagia, unspecified type documented as of [...] home health visit Disciplines: SN, PT, OT, INSTRUMENT REPAIR SUPERVISOR, REJOGGER, Skilled Disciplines Monitor patient's vital signs every [...] upper extremity and hands 01/14/2024 Active - 2 problem interventions scheduled/documen ana in this visit Goals Goal Associated Problem Outcome Goal Met? Visit Notes Patient receives care at the most appropriate care setting Description: Patient receives care at the most appropriate care setting. Homebound Status No Measure vital signs during every home health visit during episode of care Description: Home medical collections representative to measure vital signs during every home [...] pain has been reduced or controlled Completed Taping Description: Instruct in use of UE taping of left UE Problem:OT Impaired UE Function and/or Fine Motor Skills Completed Applied kinesiotape to pt's L UE for support and to facilitate muscle contraction of L UE. Instructed pt/cg to remove kinesiotape if pt's skin becomes reddened or irritated, or pt is unable to tolerate tape. Pt/cg demonstrates good understanding. Therapeutic Exercise Description: Perform [...] exercises 10 reps X 3 requiring min assist. Pt displays progress with performing tabletop exercises, requiring less assistance to perform exercises. Instructed pt to continue to perform tabletop [...] to maintain safety. Pt demonstrates good understanding. documented in this encounter Care Teams Aquaculture Director Relationship Specialty Start Date End Date Wolfgang Serrano MD PCP - General Family Medicine 05/05/23 08/02/24 Unknown, Notinfile 03/12/22 [place] [address] [place] [address] 03/12/22 Chyu Enriquez MD [address] [place] [address] Consulting Physician Pulmonary Disease 10/13/23 Luis Felipe Cedillo MD [address] [place] [address] Consulting Physician Gastroenterology 10/13/23 Marlene Thornton MD [address], [place] [id number] Surgeon Vascular Surgery 11/10/23 documented as of this encounter
--- OUTSIDE RECORDS SUMMARY | 2024-10-11 01:53 | XMS_ITS | Encounter Summary ---
Author Organization [facility] Address [address] [place] [address] Phone Care Team Providers Care Candy Dipper Name Role Phone Wolfgang Serrano MD Primary Care Provider Unknown, Notinfile Unavailable Unavailable Santino Funk MD Unavailable Chuy Enriquez MD Unavailable [phone] Luis Felipe Cedillo MD Unavailable [phone] Marlene Thornton MD Unavailable [phone] Encounter Details Date Type Department Care Team (Late st Contact Info) Description 02/15/2024 12:45 PM CDT Office Visit [facility] Dermatology [address] [facility] [address] [place] [address] Hesham Lamb PA [address] [facility] [address] [place] [address] Nummular dermatitis (Primary Dx); Solar purpura (CMS/HCC) (HCC) Social History Tobacco Use Types [...] from doctor or pharmacy Sometimes 01/09/2024 [facility] Utilities Answer Date Recorded In the past 12 months has th e [employer], gas, oil, or water [employer] threatened to shut off services in your [...] often do you attend chur ch or restorationism services? 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 is a 78 y.o. male that presents today for rash fu. 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 Clobetasol and mupirocin for infected LSC and TMC for less severe areas of rash Today: Itchy crusted areas to R forearm Some dryness and itching to L arm and lower abdomen Nonpalpable rash to L forearm Not using any topical medications currently No other changing moles, nonhealing lesions, new rashes, or growths. MEDICATIONS/ALLEGIES/FAMILY HX/SOCIAL HX: Reviewed in chart ROS PAST MEDICAL HISTORY Past Medical History: Diagnosis Date Acute gastric [...] delayed healing, subsequent encounter Clotting disorder (CMS/HCC) ([facility]) Complex tear of medial meniscus of left knee as current injury Complex tear of medial meniscus of right knee as current injury Cramps of lower extremity Diverticulitis of colon Easy bruisability Fatigue Frequent urination Gastroesophageal reflux disease GERD Hypothyroidism Incontinence of urine Muscle weakness Osteoarthritis Osteoarthritis Peptic ulcer Peptic ulcer disease Seizures ([facility]) 1997 last seizure in 1997 SOB (shortness of breath) on exertion Subchondral insufficiency fracture of condyle of left femur (CMS/HCC) ([facility]) Vertigo Vision changes Visual disturbance hx of double vision, corrective lenses MEDICATIONS Current Outpatient Medications: Advair HFA 230-21 mcg/actuation inhaler, Inhale 2 puffs 2 (two) times a day, Disp: , Rfl: albuterol HFA (PROVENTIL HFA,VENTOLIN HFA,PROAIR HFA) 90 mcg/actuation inhaler, 2 puffs every 4 (four) hours as needed, Disp: , Rfl: aspirin 81 mg chewable tablet, Take 1 tablet (81 mg total) by mouth daily, Disp: 90 tablet, Rfl: 0 capsaicin 0.1 % cream, Apply to your feet three to four times a day., Disp: 60 g, Rfl: 5 cetirizine (ZyrTEC) 10 mg tablet, Take 1 tablet (10 mg total) by mouth daily, Disp: , Rfl: cholecalciferol (VITAMIN D-3) 2000 unit capsule, Take 1 capsule (2,000 Units total) by mouth daily (Patient taking differently: Take 1 capsule (2,000 Units total) by mouth nightly), Disp: 30 capsule,Rfl: 3 clobetasoL (TEMOVATE) 0.05 % ointment, Apply topically 2 (two) times a day To most severe rash/itchon your skin. Do not use on face, armpits, or groin. If your most severe rash has yellow crusts/flakes, then mix clobetasol ointment 1:1 with mupirocin ointment before applying it. For less severe rash/itch, use triamcinolone cream sent as a separate prescription., Disp: 60 g, Rfl: 3 cyanocobalamin (Vitamin B-12) 1,000 mcg tablet, Take 1 tablet (1,000 mcg total) by mouth daily, Disp: , Rfl: donepeziL (ARICEPT) 10 mg tablet, Take 1 tablet by mouth nightly, Disp: 30 tablet, Rfl: 0 Flovent HFA 44 mcg/actuation inhaler, INHALE 2 PUFFS BY MOUTH TWICE DAILY EVERY 12 HOURS, Disp: , Rfl: gabapentin (NEURONTIN) 300 mg capsule, Take 2 capsules (600 mg total) by mouth 3 (three) times a day, Disp: , Rfl: levothyroxine (SYNTHROID) 150 mcg tablet, Take 1 tablet (150 mcg total) by mouth daily, Disp: , Rfl: lidocaine (ASPERCREME) 4 % adhesive patch,medicated, Place 1 patch on the skin daily for 12 days, Disp: 12 patch, Rfl: 0 magnesium oxide/magnesium (MAGNESIUM, OXIDE/AA CHELATE, ORAL), Take 250 mg by mouth daily. Indications: magnesium supplement, Disp: , Rfl: melatonin 10 mg tablet, Take 1 tablet (10 mg total) by mouth nightly, Disp: , Rfl: multivit-min/ferrous fumarate (MULTI VITAMIN ORAL), Take 1 tablet by mouth daily. Indications: multi-vitamin support, Disp: , Rfl: oxybutynin XL (DITROPAN-XL) 10 mg 24 hr tablet, Take 1 tablet (10 mg total) by mouth nightly, Disp:, Rfl: pantoprazole DR (PROTONIX) 40 mg EC tablet, Take 1 tablet (40 mg total) by mouth 2 (two) times a day, Disp: 180 tablet, Rfl: 0 rosuvastatin (CRESTOR) 40 mg tablet, Take 1 tablet (40 mg total) by mouth daily, Disp: 90 tablet, Rfl: 0 senna-docusate (PERICOLACE) 8.6-50 mg, Take 2 tablets by mouth daily as needed for constipation, Disp: , Rfl: tamsulosin (FLOMAX) 0.4 mg extended release capsule, Take 1 capsule (0.4 mg total) by mouth nightly, Disp: , Rfl: tiZANidine (ZANAFLEX) 2 mg tablet, TAKE 1 TABLET BY MOUTH EVERY 8 HOURS NEEDED FOR MUSCLE SPASM (Patient taking differently: Take 1 tablet (2 mg total) by mouth nightly), Disp: 60 tablet, Rfl: 0 triamcinolone (KENALOG) 0.1 % ointment, Apply topically 2 (two) times a day as needed (Rash), Disp:60 g, Rfl: 2 turmeric root extract 500 mg capsule, Take 1,000 mg by mouth nightly, Disp: , Rfl: PHYSICAL EXAM GENERAL: Appears well. No acute distress. ORIENTATION: Alert and oriented x3. MOOD/AFFECT: Normal affect. The following areas were evaluated with a skin examination: Right Upper Extremity, Left Upper Extremity, lower abdomen *Significant Abnormalities on Skin Exam: Three nummular scaly pink plaques to R forearm Xerosis cutis arms Purpuric patches to L dorsal forearm LUE weakness No rash to abd ASSESSMENT AND PLAN 1. Nummular dermatitis - Start Triamcinolone 0.1% ointment to affected areas bid prn rash, side effects reviewed includingatrophy/dyspigmentation/striae, not for use on face/groin -discussed strategies to apply medication to affected sites one handed d/t stroke deficit 2. Solar purpura (CMS/HCC) (HCC) - Benign. Reassurance was given. No treatment is indicated at this time. Patient was instructed to return if lesion changes or becomes symptomatic. Follow up: prn documented in this encounter Plan of Treatment Upcoming Encounters Date Type Department Care Team (Latest Contact Info) Description 10/23/2024 10:00 AM ERECTION SHOP SUPERVISOR Hospital Encounter [facility] Operating Room [address] [place] [address] [place] [address] [facility] [address] [place] [address] 10/23/2024 10:00 AM ERECTION SHOP SUPERVISOR - 10/23/2024 1:00 PM [facility] Surgery [facility] Operating Room [address] [place] [address] [place] [address] [facility] [address] [place], [place] [id number] ARTHROPLASTY TOTAL KNEE LEFT Scheduled Procedures Name Priority Associated Diagnoses Date/Ti me ARTHROPLASTY TOTAL KNEE left knee osteoarthritis 10/23/2024 10:00 AM ERECTION SHOP SUPERVISOR ESOPHAGOGASTRODUODENOSCOPY Dysphagia, unspecified type documented as of this encounter Visit Diagnoses Diagnosis Nummular dermatitis- Primary Contact dermatitis and other eczema, due to unspecified cause Solar purpura (CMS/HCC) (HCC) documented in this encounter Care Teams Candy Dipper Relationship Specialty Start Date End Date Wolfgang Serrano MD PCP - General Family Medicine 05/05/23 08/02/24 Unknown, Notinfile 03/12/22 [place] [address] [facility] [address] [place] [address] 03/12/22 Chuy Enriquez MD [address] [facility] [address] [place] [address] Consulting Physician Pulmonary Disease 10/13/23 Luis Felipe Cedillo MD [address] [facility] [address] [place] [address] Consulting Physician Gastroenterology 10/13/23 Marlene Thornton MD [address] [facility] [address] [place] [address] Surgeon Vascular Surgery 11/10/23 documented as of this encounter
--- OUTSIDE RECORDS SUMMARY | 2024-10-11 01:54 | XMS_ITS | Encounter Summary ---
Author Organization [facility] Healthcare Address [address] [place] [address] Care Team Providers Care Engagement Director Name Role Phone Wolfgang Serrano MD Primary Care Provider Unknown, Notinfile Unavailable Unavailable Santino Funk MD Unavailable Chuy Enriquez MD Unavailable [phone] Luis Felipe Cedillo MD Unavailable Marlene Thornton MD Unavailable Reason for Visit * Auth/Cert (Routine) Specialty Diagnoses / Procedures Referred By Contac t Referred To Contact Referral ID Status Reason Start Date Expiration Date Visits Re quested Visits Authorized [id number] 1 60 Encounter Details Date Type Department Care Team (Late st Contact Info) Description 01/31/2024 12:00 PM CDT Home Care Visit [facility] Health [address] [address] [address] [place] [address] Bing Walker, IAP DISPLAYS ANALYST PT HOME VISIT Social History Tobacco Use [...] materials from doctor or pharmacy Sometimes 01/09/2024 [facility] Utilities Answer Date Recorded In the past [...] often do you attend chur ch or druze services? 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 Gender Identity Not on file Sexual Orientation Not on file documented as of this encounter Last Filed Vital Signs Vital Sign Reading Time Taken Comments Blood Pressure 122/70 01/31/2024 12:21 PM CDT Pulse 72 01/31/2024 12:21 PM CDT Temperature 36.2 ??C (97.2 ??F) 01/31/2024 12:21 PM C DT Respiratory Rate 18 01/31/2024 12:21 PM CDT Oxygen Saturation 97% 01/31/2024 12:21 PM CDT Inhaled Oxygen Concentration - - Weight - - Height - - Body Mass Index - - documented in this encounter Miscellaneous Notes * Home Health Plan for Next Visit - Bing Walker PTA - 01/31/2024 12:30 PM CDT Reason for today's visit pt seen today for continued education for safe transfers, amb, HEP to improve balance, strength and endurance Discuss plan of care with pt Discharge planning discussed pts progress and goals Plan for next visit continue with amb, HEP, balance and steps out of the house documented in this encounter Plan of Treatment Upcoming Encounters Date Type Department Care Team (Latest Contact Info) Description 10/23/2024 10:00 AM FLAME BURNER Hospital Encounter [facility] Operating Room [address] [place] [address] [place] [address] [address] 10/23/2024 10:00 AM FLAME BURNER - 10/23/2024 1:00 PM FLAME BURNER Surgery [facility] Operating Room [address] [place] [address] [place] [address] [address] ARTHROPLASTY TOTAL KNEE LEFT Scheduled Procedures Name Priority Associated Diagnoses Date/Ti me ARTHROPLASTY TOTAL KNEE left knee osteoarthritis 10/23/2024 10:00 AM FLAME BURNER ESOPHAGOGASTRODUODENOSCOPY Dysphagia, unspecified type documented as of [...] home health visit Disciplines: SN, PT, OT, HANDBAG FRAMES INSPECTOR, ORTHOPEDIC CAST SPECIALIST, Skilled Disciplines Monitor patient's vital signs every [...] Aftercare related to stroke/CVA 01/09/2024 Active - 3 problem interventions scheduled/documen ana in this visit Goals Goal Associated Problem Outcome Goal Met? Visit Notes Patient receives care at the most appropriate care setting Description: Patient receives care at the most appropriate care setting. Homebound Status No Measure vital signs during every home health visit during episode of care Description: Home planograph operator to measure vital signs during every [...] homebound due to fall risk, req assistance with ADLS, req assistance out of the house, L sided weakness Monitor Vital Signs Description: Monitor blood pressure, pulse, oxygen saturation, respirations Problem:Monitor patient's vital signs every home health visit Goal:Measure vital signs during every home health visit during episode of care Scheduled completed Educate Patient on Infection Prevention Description: [...] training. Problem:PT Stroke/CVA Completed pt instructed on 2 steps to enter/exit the house using the rasheed walker with min/mod assist and vc for proper technique. pt had difficulty stepping over the threshold out the front door. pt amb 20'x2 outside to the car and back. pt req vc for proper walker placement and seq on steps. pt amb with decrease step length and step to gt pattern. Bed Mobility/Transfer Training Description: Instruct patient/caregiver and perform bed mobility/transfer training. Problem:PT Stroke/CVA Completed pt transfers from sit-stand and stand-supine, supine-sit and sit-stand with CGA. pt is unsteady at times upon standing and instructed to stand for short time upon standing and balance before amb Therapeutic Exercise Description: Perform therapeutic exercise, progressing as tolerated. Problem:PT Stroke/CVA Completed pt in supine performed ap,qs,slr,saq, heel slides, hip abd, bridging, hip add with knees flexed 12-15 reps. pt req min assist to perform SLR on L. pt in sitting performed marching and laq 12 reps. pt stated he has not been sleeping well and was very tired today. documented in this encounter Care Teams Engagement Director Relationship Specialty Start Date End Date Wolfgang Serrano MD PCP - General Family Medicine 05/05/23 08/02/24 Unknown, Notinfile 03/12/22 [place] [address] [facility] [address] [place] [address] 03/12/22 Chuy Enriquez MD [address] [facility] [address] [place], [place] [id number] Consulting Physician Pulmonary Disease 10/13/23 Luis Felipe Cedillo MD [address] [facility] [address], [place] [id number] Consulting Physician Gastroenterology 10/13/23 Marlene Thornton MD [address] [facility] [address] [place] [address] Surgeon Vascular Surgery 11/10/23 documented as of this encounter
--- OUTSIDE RECORDS SUMMARY | 2024-10-11 01:54 | XMS_ITS | Encounter Summary ---
Author Organization [facility] Healthcare Address [address] [place] [address] Care Team Providers Care Spa Manager Name Role Phone Wolfgang Serrano MD Primary Care Provider [phone] Unknown, Notinfile Unavailable Unavailable Santino Funk MD Unavailable Chuy Enriquez MD Unavailable Luis Felipe Cedillo MD Unavailable [phone] Marlene Thornton MD Unavailable Reason for Visit * Auth/Cert (Routine) Specialty Diagnoses / Procedures Referred By Contac t Referred To Contact Referral ID Status Reason Start Date Expiration Date Visits Re quested Visits Authorized [id number] 1 60 Encounter Details Date Type Department Care Team (Late st Contact Info) Description 01/31/2024 9:30 AM CDT Home Care Visit [facility] [address] [address] [address] [place] [address] Anjelica Winter, LITHOGRAPH PRINTER LITHOGRAPH PRINTER HOME VISIT Social History Tobacco Use Types [...] materials from doctor or pharmacy Sometimes 01/09/2024 [facility] Utilities Answer Date Recorded In the past 12 months has e [employer], gas, oil, or water company threatened to [...] any clubs o r organizations such as rastafari groups, unions, fraternal or athletic groups, or [...] Recorded Patient Health Questionnaire-2 Score 0 01/06/2024 [facility] [place] of Occupat ional Health - Occupational Stress [...] on file Legal 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 Gender Identity Not on file Sexual Orientation Not on file documented as of this encounter Last Filed Vital Signs Vital Sign Reading Time Taken Comments Blood Pressure 132/72 01/31/2024 10:15 AM CDT Pulse 71 01/31/2024 10:15 AM CDT Temperature 36.2 ??C (97.1 ??F) 01/31/2024 10:15 AM C DT Respiratory Rate 18 01/31/2024 10:15 AM CDT Oxygen Saturation 96% 01/31/2024 10:15 AM CDT Inhaled Oxygen Concentration - - Weight - - Height - - Body Mass Index - - documented in this encounter Miscellaneous Notes * Home Health Plan for Next Visit - Anjelica Winter LITHOGRAPH PRINTER - 01/31/2024 10:04 AM CDT Reason for today's visit: skilled [...] (Latest Contact Info) Description 10/23/2024 10:00 AM LEAD EMBEDDED SOFTWARE ENGINEER Hospital Encounter [facility] Operating Room [address] [place] [address] [place] [address] [address] 10/23/2024 10:00 AM LEAD EMBEDDED SOFTWARE ENGINEER - 10/23/2024 1:00 PM LEAD EMBEDDED SOFTWARE ENGINEER Surgery [facility] Operating Room [address] [place] [address] [place] [address] [address] ARTHROPLASTY TOTAL KNEE LEFT Scheduled Procedures Name Priority Associated Diagnoses Date/Ti me ARTHROPLASTY TOTAL KNEE left knee osteoarthritis 10/23/2024 10:00 AM LEAD EMBEDDED SOFTWARE ENGINEER ESOPHAGOGASTRODUODENOSCOPY Dysphagia, unspecified type documented as of this encounter Visit Diagnoses Not on filedocumented in this encounter Home Health Visit - Care Plan Visit Details Visit Type -LITHOGRAPH PRINTER Home Visit Discipline -Speech Language Pathology Problems Problem Description Start Date Status Goals Interventions Homebound Status Disciplines: Skilled Disciplines Patient's homebound status 01/09/2024 Active 1 goal linked to scheduled/docume nted intervention 1 goal intervention scheduled/documen ana in this visit Monitor patient's vital signs every home health visit Disciplines: SN, PT, OT, LITHOGRAPH PRINTER, SLITTER PROCESSED FILM, Skilled Disciplines Monitor patient's vital signs every [...] goal interventions scheduled/documen ana in this visit LITHOGRAPH PRINTER Impaired Swallowing Disciplines: Speech Language Pathology Impaired swallow with oral phase dysphagia 01/14/2024 Active - 2 problem interventions scheduled/documen ana in this visit Instruct/evalua te cognitive function Disciplines: Speech Language Pathology Review patient's current cognitive status and create management plan 01/14/2024 Active - 1 problem intervention scheduled/documen ana in this visit Goals Goal Associated Problem Outcome Goal Met? Visit Notes Patient receives care at the most appropriate care setting Description: Patient receives care at the most appropriate care setting. Homebound Status No Measure vital signs during every home health visit during episode of care Description: Home pad machine operator to measure vital signs during [...] (HEP) Description: Instruct patient/caregiver and perform HEP. Problem:LITHOGRAPH PRINTER Impaired Swallowing Completed Review and continued development of HEP for oral motor exercises with patient and patient caregiver demonstrating comprehension. Instruct appropriate strategies to prevent choking/aspiration Description: Instruct patient/caregiver on appropriate strategies to prevent choking / aspiration Problem:LITHOGRAPH PRINTER Impaired Swallowing Completed Review of safe swallow strategies including decreased rate, decreased bolus size, alternating liquids and solids, sitting up straight during and 30 - 45 minutes following oral intake, and adding extra moisture to foods when appropriate (extra sauce, gravy, condiments, syrup, etc) with patient demonstrating comprehension. Instruct cognitive strategies Description: Instruct patient/caregiver in cognitive strategies. Problem:Instruct/anna hdz cognitive function Completed Education regarding cognitive stimulation tasks including calendar use of temporal orientation, assisting with household tasks as she is able to (assisting with meal planning, listing ingredients needed, grocery lists, to do lists, sequencing tasks), games (cards, dominoes, board games, road trip games, games on phone/tablet), puzzles (word puzzles, number puzzles, jigsaw puzzles), playing along with game shows, review a movie/TV show, discussing the news, reading (newspaper, magazines, books, bible, daily devotionals, bible study), singing along with music, exercise, arts/crafts (color by number, decorating, crocheting, etc.), and new learning with handout provided and patient demonstrating comprehension. documented in this encounter Care Teams Spa Manager Relationship Specialty Start Date End Date Wolfgang Serrano MD PCP - General Family Medicine 05/05/23 08/02/24 Unknown, Notinfile 03/12/22 [place] [address] [facility] [address] [place] [address] 03/12/22 Chuy Enriquez MD [address] [facility] [address] [place] [address] Consulting Physician Pulmonary Disease 10/13/23 Luis Felipe Cedillo MD [address] [facility] [address], [place] [address] Consulting Physician Gastroenterology 10/13/23 Marlene Thornton MD [address] [facility] [address], [place] [address] Surgeon Vascular Surgery 11/10/23 documented as of this encounter
--- OUTSIDE RECORDS SUMMARY | 2024-10-11 01:54 | XMS_ITS | Encounter Summary ---
Author Organization [facility] Healthcare Address [address] [place] [address] Care Team Providers Care Filler Mixer Name Role Phone Wolfgang Serrano MD Primary Care Provider [phone] Unknown, Notinfile Unavailable Unavailable Santino Funk MD Unavailable Chuy Enriquez MD Unavailable [phone] Luis Felipe Cedillo MD Unavailable [phone] Marlene Thornton MD Unavailable [phone] Reason for Visit * Auth/Cert (Routine) Specialty Diagnoses / Procedures Referred By Contac t Referred To Contact Referral ID Status Reason Start Date Expiration Date Visits Re quested Visits Authorized [id number] 1 60 Encounter Details Date Type Department Care Team (Late st Contact Info) Description 02/07/2024 9:00 AM CDT Home Care Visit [facility] [address] [address] [address] [place] [address] Sarah Paulino COTA OT HOME [...] materials from doctor or pharmacy Sometimes 01/09/2024 [facility] Utilities Answer Date Recorded In the past [...] often do you attend chur ch or roman catholic services? More than 4 times per year 12/16/2023 Do you belong to any clubs o r organizations such as adventist groups, unions, fraternal or athletic groups, or [...] Recorded Patient Health Questionnaire-2 Score 0 01/06/2024 [facility] [place] of Occupat ional Health - Occupational Stress [...] place to sleep or slept in a mcc (including now)? No 12/16/2023 Personal Safety Answer Date Recorded Have you ever been in or are you currently in a harmful physical or emotional relationship or is someone making you feel afraid or unsafe? Denies 12/15/2023 Sex and Gender Information Value Date Recorded Sex Assigned at Not on file Legal Sex Male 3:25 PM BUSINESS MGR Gender Identity Not on file Sexual Orientation Not on file documented as of this encounter Last Filed Vital Signs Vital Sign Reading Time Taken Comments Blood Pressure 142/76 02/07/2024 9:20 AM CDT Pulse 71 02/07/2024 9:20 AM CDT Temperature 36.9 ??C (98.4 ??F) 02/07/2024 9:20 AM CD T Respiratory Rate 18 02/07/2024 9:20 AM CDT Oxygen Saturation 96% 02/07/2024 9:20 AM CDT Inhaled Oxygen Concentration - - Weight - - Height - - Body Mass Index - - documented in this encounter Miscellaneous Notes * Home Health Plan for Next Visit - Sarah Paulino COTA - 02/07/2024 9:23 AM CDT Reason for today's visit: PROM/AAROM on L UE, positioning of L UE, edema management, activities to increase L UE strength/ROM Discussed plan of care with pt and pt in agreement with POC Discharge planning: home with pd cg/spouse's assistance, eventually transitioning to outpatient therapy Plan for next visit: Activities to improve L UE strength/ROM, instruct on don/doffing new sling, safe techniques for transfers, activities to improve standing balance. documented in this encounter Plan of Treatment Upcoming Encounters Date Type Department Care Team (Latest Contact Info) Description 10/23/2024 10:00 AM BUSINESS MGR Hospital Encounter [facility] Operating Room [id number] [place] [address] [place] [address] [address] 10/23/2024 10:00 AM BUSINESS MGR - 10/23/2024 1:00 PM BUSINESS MGR Surgery [facility] Operating Room [id number] [place] [address] [place] [address] [address] ARTHROPLASTY TOTAL KNEE LEFT Scheduled Procedures Name Priority Associated Diagnoses Date/Ti me ARTHROPLASTY TOTAL KNEE left knee osteoarthritis 10/23/2024 10:00 AM BUSINESS MGR ESOPHAGOGASTRODUODENOSCOPY Dysphagia, unspecified type documented as of [...] home health visit Disciplines: SN, PT, OT, GEODETIC SURVEYOR TECHNOLOGIST, CASE MANAGER, Skilled Disciplines Monitor patient's vital signs [...] visit during episode of care Description: Home machinist apprentice to measure vital signs during every home [...] Fine Motor Skills Completed Continued instruction on keeping L UE elevated using lap tray, pillow or sling to provide support to L UE and decrease edema. Assisted pt with positioning L UE on pillow at end of therapy visit. Plan to instruct on new sling when it is delivered. Taping Description: Instruct in use of UE taping of left UE Problem:OT Impaired UE Function and/or Fine Motor Skills Completed Applied kinesiotape to pt's L UE (shoulder) to facilitate muscle contraction, provide support and prevent further subluxation. Instructed pt/cg to remove kinesiotape if skin becomes reddened, irritated or pt is unable to tolerate tape. Pt and cg demonstrates good understanding. Therapeutic Exercise Description: Perform [...] cg assistance. Pt demonstrates good understanding. Pt displays progression with tabletop exercises this visit, requiring less assistance. Also instructed pt on performing weight bearing [...] facilitate muscle contraction. Pt demonstrates good understanding. documented in this encounter Care Teams Filler Mixer Relationship Specialty Start Date End Date Wolfgang Serrano MD PCP - General Family Medicine 05/05/23 08/02/24 Unknown, Notinfile 03/12/22 [place] [address] [address] [place] [address] 03/12/22 Chuy Enriquez MD [address] [facility] [address] [place] [address] Consulting Physician Pulmonary Disease 10/13/23 Luis Felipe Cedillo MD [address] [facility] [address] [place] [address] Consulting Physician Gastroenterology 10/13/23 Marlene Thornton MD [address] [facility] [address] [address] Surgeon Vascular Surgery 11/10/23 documented as of this encounter
--- OUTSIDE RECORDS SUMMARY | 2024-10-11 01:54 | XMS_ITS | Encounter Summary ---
Author Organization [facility] Healthcare Address [address] [place] [address] Care Team Providers Care Conceptor Name Role Phone Wolfgang Serrano MD Primary Care Provider Unknown, Notinfile Unavailable Unavailable Santino Funk MD Unavailable [phone] Chuy Enriquez MD Unavailable Luis Felipe Cedillo MD Unavailable [phone] Marlene Thornton MD Unavailable Reason for Visit * Auth/Cert (Routine) Specialty Diagnoses / Procedures Referred By Contac t Referred To Contact Referral ID Status Reason Start Date Expiration Date Visits Re quested Visits Authorized [id number] 1 60 Encounter Details Date Type Department Care Team (Late st Contact Info) Description 01/25/2024 11:00 AM CDT Home Care Visit [facility] [address] [address] [address] [place] [address] Bing Walker, BEEF SPECIALIST PT HOME VISIT Social History Tobacco Use [...] doctor or pharmacy Sometimes 01/09/2024 [facility] Utilities Answer Date Recorded In the [...] often do you attend chur ch or sabianist services? More than 4 times per year [...] Patient Health Questionnaire-2 Score 0 01/06/2024 [facility] [place] of Occupat ional Health - Occupational Stress [...] on file Legal Sex Male 3:25 PM COMPUTER SYSTEMS AUDITOR Gender Identity Not on file Sexual Orientation Not on file documented as of this encounter Last Filed Vital Signs Vital Sign Reading Time Taken Comments Blood Pressure 122/68 01/25/2024 11:54 AM CDT Pulse 72 01/25/2024 11:54 AM CDT Temperature 36.2 ??C (97.1 ??F) 01/25/2024 11:54 AM C DT Respiratory Rate 18 01/25/2024 11:54 AM CDT Oxygen Saturation 97% 01/25/2024 11:54 AM CDT Inhaled Oxygen Concentration - - Weight - - Height - - Body Mass Index - - documented in this encounter Miscellaneous Notes * Home Health Plan for Next Visit - Bing Walker PTA - 01/25/2024 12:02 PM CDT Reason for today's visit pt seen today for continued education for safe transfers, amb and progresswith HEP to improve balance, strength and endurance Discuss plan of care with pt Discharge planning discussed progress and goals Plan for next visit continue to progress with ex, amb, balance and transfers documented in this encounter Plan of Treatment Upcoming Encounters Date Type Department Care Team (Latest Contact Info) Description 10/23/2024 10:00 AM COMPUTER SYSTEMS AUDITOR Hospital Encounter [facility] Operating Room [address] [place] [address] [place] [address] [address] 10/23/2024 10:00 AM COMPUTER SYSTEMS AUDITOR - 10/23/2024 1:00 PM COMPUTER SYSTEMS AUDITOR Surgery [facility] Operating Room [address] [place] [address] [place] [address] [address] ARTHROPLASTY TOTAL KNEE LEFT Scheduled Procedures Name Priority Associated Diagnoses Date/Ti me ARTHROPLASTY TOTAL KNEE left knee osteoarthritis 10/23/2024 10:00 AM COMPUTER SYSTEMS AUDITOR ESOPHAGOGASTRODUODENOSCOPY Dysphagia, unspecified type documented as of [...] home health visit Disciplines: SN, PT, OT, ELECTRICIAN UNDERGROUND, TALENT ACQUISITION MANAGER, Skilled Disciplines Monitor patient's vital signs [...] ADLS, req assistance out of the house, limited mobility Monitor Vital Signs Description: Monitor blood pressure, [...] gait/stair training. Problem:PT Stroke/CVA Completed pt amb 40'x2 with rasheed walker with CGA/min assist. pt req vc to increase SHANA, proper walker placement and to stand erect Bed Mobility/Transfer Training Description: Instruct patient/caregiver and perform bed mobility/transfer training. Problem:PT Stroke/CVA Completed pt performed bed transfers with CGA/SBA. pt transfers from sit-stand and stand to sit with CGA. pt req vc when sitting to turn completely around with the rasheed walker, reach back for arms of the chair to sit. pt will release the walker too earily and reach for the arm of the chair before turning around Balance Training/Activities Description: Instruct patient/caregiver and perform balance training activities. Problem:PT Stroke/CVA Completed pt performed sidestepping along railing using R hand on rail for support and vc for proper tehcnique Therapeutic Exercise Description: Perform therapeutic exercise, progressing as tolerated. Problem:PT Stroke/CVA Completed pt in supine performed ap,qs,slr,saq, heel slides, hip abd, isometric hip add using a pillow between knees and bridging 12 reps. pt req min assist to perform SLR on L. pt in standing performed heel raises, marching on L and hip abd on L 12 reps. pt instructed to perform HEP 2-3x a day. pt req vc for proper technique, speed and control documented in this encounter Care Teams Conceptor Relationship Specialty Start Date End Date Wolfgang Serrano MD PCP - General Family Medicine 05/05/23 08/02/24 Unknown, Notinfile 03/12/22 [place] [address] [facility] [address] [place] [address] 03/12/22 Chuy Enriquez MD [address] [place] [address] Consulting Physician Pulmonary Disease 10/13/23 Luis Felipe Cedillo MD [address] [place] [address] Consulting Physician Gastroenterology 10/13/23 Marlene Thornton MD [address], [place] [address] Surgeon Vascular Surgery 11/10/23 documented as of this encounter
--- OUTSIDE RECORDS SUMMARY | 2024-10-11 01:54 | XMS_ITS | Encounter Summary ---
Author Organization [facility] Healthcare Address [address] [place] [address] Care Team Providers Care Senior Consulting Manager Name Role Phone Wolfgang Serrano MD Primary Care Provider Unknown, Notinfile Unavailable Unavailable Santino Funk MD Unavailable Chuy Enriquez MD Unavailable Luis Felipe Cedillo MD Unavailable [phone] Marlene Thornton MD Unavailable Reason for Visit * Auth/Cert (Routine) Specialty Diagnoses / Procedures Referred By Contac t Referred To Contact Referral ID Status Reason Start Date Expiration Date Visits Re quested Visits Authorized [id number] 1 60 Encounter Details Date Type Department Care Team (Late st Contact Info) Description 02/04/2024 9:00 AM CDT Home Care Visit [facility] [address] [address] [address] [place] [address] Kavya Basurto, OT OT REASSESSMENT [...] materials from doctor or pharmacy Sometimes 01/09/2024 [facility] Utilities Answer Date Recorded In the past 12 months has e [employer], gas, oil, or water company threatened to [...] often do you attend chur ch or islam services? More than 4 times per year [...] Recorded Patient Health Questionnaire-2 Score 0 01/06/2024 [facility] [place] of Occupat ional Health - Occupational Stress [...] on file Legal Sex Male 3:25 PM LEARNING SUPPORT RESOURCE ROOM TEACHER Gender Identity Not on file Sexual Orientation Not on file documented as of this encounter Last Filed Vital Signs Vital Sign Reading Time Taken Comments Blood Pressure 122/80 02/04/2024 9:32 AM CDT Pulse 66 02/04/2024 9:32 AM CDT Temperature 36.2 ??C (97.2 ??F) 02/04/2024 9:32 AM CD T Respiratory Rate 18 02/04/2024 9:32 AM CDT Oxygen Saturation 98% 02/04/2024 9:32 AM CDT Inhaled Oxygen Concentration - - Weight - - Height - - Body Mass Index - - documented in this encounter Miscellaneous Notes * Home Health Visit Narrative - Kavya Basurto, OT - 02/04/2024 9:21 AM CDT Pt. was referred to HHOT s/p admission to [facility] from 12/07/2023 - 12/15/2023 (8 days) secondary [...] times a week for 2 more weeks to address remaining goals. Pt. in agreement with continuing HHOT and POC. * Home Health Plan for Next Visit - Kavya Basurto OT - 02/04/2024 9:06 AM CDT Reason for today's visit HHOT reassessment Discuss plan of care with pt. Discharge planning to self and family once OT goals are addressed Plan for next visit balance and IADL's documented in this encounter Plan of Treatment Upcoming Encounters Date Type Department Care Team (Latest Contact Info) Description 10/23/2024 10:00 AM [facility] Hospital Encounter [facility] Operating Room [id number] [place] [address] [place] [id number] [place] [address] 10/23/2024 10:00 AM LEARNING SUPPORT RESOURCE ROOM TEACHER - 10/23/2024 1:00 PM LEARNING SUPPORT RESOURCE ROOM TEACHER Surgery [facility] Operating Room [address] [place] [address] [place] [address] [facility] [address] [place] [address] ARTHROPLASTY TOTAL KNEE LEFT Scheduled Procedures Name Priority Associated Diagnoses Date/Ti me ARTHROPLASTY TOTAL KNEE left knee osteoarthritis 10/23/2024 10:00 AM LEARNING SUPPORT RESOURCE ROOM TEACHER ESOPHAGOGASTRODUODENOSCOPY Dysphagia, unspecified type documented as [...] home health visit Disciplines: SN, PT, OT, MOLD SWABBER, PRACTICAL NURSING TEACHER, Skilled Disciplines Monitor patient's vital signs [...] goal linked to scheduled/documen ana intervention OT Positioning/Pre ssure Relief Disciplines: Occupational Therapy Positioning/seating /pressure relief needed due to increased time sitting 01/14/2024 Active 1 goal linked to scheduled/documen ana intervention 1 problem intervention scheduled/docume nted in this visit OT Activity Tolerance/Energ y [...] visit during episode of care Description: Home statistical technician to measure vital signs during every [...] pain has been reduced or controlled Description: Patient/caregiver/fami ly will verbalize satisfaction with the patients level of pain and symptom control. Pain No Improvement in caregiver knowledge Description: Patient/caregiver will demonstrate improved knowledge of CVA and compensation strategies by 02/19/24 OT Stroke/CVA Progressing No Patient/caregiver will demonstrate improved knowledge of CVA and compensation strategies by 02/19/24. completing Cognition: Understanding and performance of compensatory strategies. Description: Patient/caregiver will demonstrate ability to utilize compensatory techniques/strategies by 02/19/24 OT Stroke/CVA Progressing No Patient/caregiver will demonstrate ability to utilize compensatory techniques/strategie s by 02/19/24. completing Improved management of stressors Description: Patient will demonstrate improved ability to perform ADL's and IADL's and/ or manage pain by utilizing relaxation strategies by 02/19/24 OT Alteration in Coping Progressing No Patient will demonstrate improved ability to perform ADL's and IADL's and/ or manage pain by utilizing relaxation strategies by 02/19/24. completing Improved knowledge/performance with pressure relief Description: Patient/caregiver to verbalize understanding and perform pressure relieving techniques to relief pressure by 02/05/24 OT Positioning/Pressur e Relief Completed Yes Patient/caregiver to verbalize understanding and perform pressure relieving techniques to relief pressure by 02/05/24. completed Improvement in activity tolerance Description: Using energy conservation techniques, patient to perform ADL's and IADL's with a score of 13 or less on the ISIS scale using energy conservation techniques by 02/19/24 OT Activity Tolerance/Energy Conservation Progressing No Using energy conservation techniques, patient to perform ADL's and IADL's with a score of 13 or less on the ISIS scale using energy conservation techniques by 02/19/24. Pt. rated ADL's a somewhat hard activity which is a 13 on the ISIS and IADL's as a heard activity which is a 15 on the ISIS scale Knowledge of taping techniques Description: Patient/caregiver will demonstrate knowledge of taping techniques for joint support, muscle inhibition, posture and/or pain relief by 02/19/24 OT Impaired UE Function and/or Fine Motor Skills Progressing No Patient/caregiver will demonstrate knowledge of taping techniques for joint support, muscle inhibition, posture and/or pain relief by 02/19/24. completing Positioning with UE Description: Patient/caregiver will demonstrate understanding of positioning for left UE by 02/19/24 OT Impaired UE Function and/or Fine Motor Skills Progressing No Patient/caregiver will demonstrate understanding of positioning for left UE by 02/19/24. completing Performance with HEP Description: Patient/caregiver to perform progressed HEP for UE function and/or fine motor skills by 02/19/24 OT Impaired UE Function and/or Fine Motor Skills Progressing No Patient/caregiver to perform progressed HEP for UE function and/or fine motor skills by therapy discharge. completing Improvement in IADL performance Description: Patient to perform light house management/homemaking activities with mod I by 02/19/24 OT Impaired IADLs Progressing No Patient to perform light house management/homemakin g activities with mod I by 02/19/24. Pt. is starting to complete light IADL's from wheelchair Improvement in ADL related transfers Description: Patient/caregiver will demonstrate sit to stand transfer with indep using DME as needed by 02/19/24 Patient/caregiver will demonstrate bed transfer with indep using DME as needed by 02/19/24 Patient/caregiver will demonstrate toilet transfer with indep using DME as needed by 02/19/24 Patient/caregiver will demonstrate shower transfer with indep using DME as needed by 02/19/24 OT Impaired Functional Mobility/Balance Progressing No Patient/caregiver will demonstrate sit to stand transfer with min assist using DME as needed by 02/12/24. cga Patient/caregiver will demonstrate bed transfer with min assist using DME as needed by 02/12/24. cga Patient/caregiver will demonstrate toilet transfer with mod I using DME as needed by 02/12/24. cga Patient/caregiver will demonstrate shower transfer with min assist using DME as needed by 02/12/24. cga Improve balance during functional activities Description: Patient will tolerate and safely perform/participate in ADL's and IADL's by 02/19/24 Patient will safely ambulated to and from garage to get food out of refrigerator by 02/19/24 OT Impaired Functional Mobility/Balance Progressing No Patient will tolerate and safely perform/participate in ADL's and IADL's by 02/19/24. completing Obtaining and use of assistive device/DME Description: Patient to perform ADL's and IADL's with assistive device/DME and mod I by 02/19/24 OT Impaired Functional Mobility/Balance Progressing No Patient to perform ADL's and IADL's with assistive device/DME and mod I by 02/19/24. completing Improvement in ADL performance Description: Patient will complete dressing tasks with adaptive equipment requiring mod I by 02/19/24 OT Impaired ADLs Progressing No Patient will complete dressing tasks with adaptive equipment requiring mod assist by 02/12/24. mod assist Patient will complete bathing tasks with mod assist and DME as needed by 02/12/24. min assist with DME Patient will complete eating tasks with mod I and DME as needed by 02/05/24. mod I Patient/caregiver to improve with medication management Description: Patient/caregiver will demonstrate success with medication routine using compensation strategies within 02/12/24 OT Medication Management as an ADL Progressing No Patient/caregiver will demonstrate success with medication routine using compensation strategies within 02/05/24. completing Interventions Intervention Associated Problem/Goal Status Variance Visit [...] pain has been reduced or controlled Scheduled Pressure Relief Description: Instruct patient/caregiver and perform pressure relief techniques Problem:OT Positioning/Pressure Relief Completed Reviewed the importance of moving positions every hour or two and using a pillow to help prop self up with to help prevent pressure sores. Pt. demonstrated good understanding of information Energy Conservation Education Description: Instruct patient/caregiver in techniques for improved activity tolerance Problem:OT Activity Tolerance/Energy Conservation Completed Educated pt. on the importance of listening to your body and not doing to much at once. Pt. demonstrated good understanding of information Positioning Description: Patient/caregiver education for proper positioning. Problem:OT Impaired UE Function and/or Fine Motor Skills Completed Educated pt. on the importance of placing LUE up on a pillow to help decrease edema. Pt. demonstrated good understanding of information documented in this encounter Care Teams Senior Consulting Manager Relationship Specialty Start Date End Date Wolfgang Serrano MD PCP - General Family Medicine 05/05/23 08/02/24 Unknown, Notinfile 03/12/22 [place] [id number] [facility] [address] [place] [address] 03/12/22 Chuy Enriquez MD [address] [place] [address] Consulting Physician Pulmonary Disease 10/13/23 Luis Felipe Cedillo MD [address] [place] [address] Consulting Physician Gastroenterology 10/13/23 Marlene Thornton MD [address] [address] Surgeon Vascular Surgery 11/10/23 documented as of this encounter
--- OUTSIDE RECORDS SUMMARY | 2024-10-11 01:54 | XMS_ITS | Encounter Summary ---
Author Organization [facility] Healthcare Address [address] [place] [address] Care Team Providers Care Grain I Farmworker Name Role Phone Wolfgang Serrano MD Primary Care Provider [phone] Unknown, Notinfile Unavailable Unavailable Santino Funk MD Unavailable Chuy Enriquez MD Unavailable Luis Felipe Cedillo MD Unavailable [phone] Marlene Thornton MD Unavailable Reason for Visit * Auth/Cert (Routine) Specialty Diagnoses / Procedures Referred By Contac t Referred To Contact Referral ID Status Reason Start Date Expiration Date Visits Re quested Visits Authorized [id number] 1 60 Encounter Details Date Type Department Care Team (Late st Contact Info) Description 01/21/2024 9:00 AM CDT Home Care Visit [facility] [address] [address] [address] [place] [address] Sarah Paulino COTA OT HOME [...] doctor or pharmacy Sometimes 01/09/2024 [facility] Utilities Answer Date Recorded In the [...] often do you attend chur ch or jew services? More than 4 times per year [...] Recorded Patient Health Questionnaire-2 Score 0 01/06/2024 [facility] [place] of Occupat ional Health - Occupational Stress [...] on file Legal Sex Male 3:25 PM MOBILE GAME ENGINEER Gender Identity Not on file Sexual Orientation Not on file documented as of this encounter Last Filed Vital Signs Vital Sign Reading Time Taken Comments Blood Pressure 108/70 01/21/2024 9:11 AM CDT Pulse 98 01/21/2024 9:11 AM CDT Temperature 36.9 ??C (98.4 ??F) 01/21/2024 9:11 AM CD T Respiratory Rate 18 01/21/2024 9:11 AM CDT Oxygen Saturation 96% 01/21/2024 9:11 AM CDT Inhaled Oxygen Concentration - - Weight - - Height - - Body Mass Index - - documented in this encounter Miscellaneous Notes * Home Health Plan for Next Visit - Sarah Paulino COTA - 01/21/2024 9:00 AM CDT Reason for today's visit: Activities to improve L UE strength, ROM, coordination, safe techniques for transfers Discussed plan of care with pt and pt in agreement with POC Discharge planning: home with spouse/cg assistance, 24 hour care Plan for next visit: Safe techniques for completing ADLs, L UE strengthening and coordination documented in this encounter Plan of Treatment Upcoming Encounters Date Type Department Care Team (Latest Contact Info) Description 10/23/2024 10:00 AM MOBILE GAME ENGINEER Hospital Encounter [facility] Operating Room [address] [place] [address] [place] [address] [address] 10/23/2024 10:00 AM MOBILE GAME ENGINEER - 10/23/2024 1:00 PM MOBILE GAME ENGINEER Surgery [facility] Operating Room [address] [place] [address] [place] [address] [address] ARTHROPLASTY TOTAL KNEE LEFT Scheduled Procedures Name Priority Associated Diagnoses Date/Ti me ARTHROPLASTY TOTAL KNEE left knee osteoarthritis 10/23/2024 10:00 AM MOBILE GAME ENGINEER ESOPHAGOGASTRODUODENOSCOPY Dysphagia, unspecified type documented as [...] home health visit Disciplines: SN, PT, OT, MACHINE LOADER, MACHINE ROOM OPERATOR, Skilled Disciplines Monitor patient's vital signs [...] Fine Motor Skills Completed Instructed pt on rasheed sling that would provide more support for L UE. Instructed pt on where sling can be obtained. Therapeutic Exercise Description: Perform and progress therapeutic exercise. Problem:OT Impaired UE Function and/or Fine Motor Skills Completed Instructed pt on tabletop exercises for L shoulder ab/adduction, elbow flex/ext to increase UE strength in L UE Pt was able to perform 10 reps X 2 tabletop exercises with L UE Instructed pt on performing shoulder shrugs to increase strength and ROM in L UE Pt performs 10 reps X 1 of shoulder shrugs. Also instructed on weight bearing through L UE while sitting on couch and leaning onto L UE, holding for approx 5-10 secs. Pt was able to return demonstration with Min A for proper positioning of L UE. Instructed pt on tapping on L UE to facilitate muscle contraction of L UE and to provide stimulation to L UE. Pt demonstrates good understanding and returns demo correctly. Transfer Training Description: Instruct patient/caregiver and perform transfer training. Problem:OT Impaired Functional Mobility/Balance Completed Continued instruction on safe techniques for transfers (scooting to edge of seat, proper foot placement, pushing up from seated position and use of rasheed cane). Pt was able to transfer from w/c to couch, couch to w/c, requiring SBA/supervision. Instructed pt to continue to have supervision for transfers and ambulation to maintain safety. Pt demonstrates good understanding. documented in this encounter Care Teams Grain I Farmworker Relationship Specialty Start Date End Date Wolfgang Serrano MD PCP - General Family Medicine 05/05/23 08/02/24 Unknown, Notinfile 03/12/22 [place] [address] [facility] [address] [place] [address] 03/12/22 Chuy Enriquez MD [address] [place] [address] Consulting Physician Pulmonary Disease 10/13/23 Luis Felipe Cedillo MD [address] [place] [address] Consulting Physician Gastroenterology 10/13/23 Marlene Thornton MD [address] [address] Surgeon Vascular Surgery 11/10/23 documented as of this encounter
--- OUTSIDE RECORDS SUMMARY | 2024-10-11 01:54 | XMS_ITS | Encounter Summary ---
Author Organization [facility] Healthcare Address [address] [place] [address] Care Team Providers Care Block Captain Name Role Phone Wolfgang Serrano MD Primary Care Provider Unknown, Notinfile Unavailable Unavailable Santino Funk MD Unavailable [phone] Chuy Enriquez MD Unavailable [phone] Luis Felipe Cedillo MD Unavailable [phone] Marlene Thornton MD Unavailable [phone] Reason for Visit * Auth/Cert (Routine) Specialty Diagnoses / Procedures Referred By Contac t Referred To Contact Referral ID Status Reason Start Date Expiration Date Visits Re quested Visits Authorized [id number] 1 60 Encounter Details Date Type Department Care Team (Late st Contact Info) Description 01/20/2024 12:30 PM CDT Home Care Visit [facility] [address] [address] [address] [place] [address] Bing Walker, EMPLOYEE BENEFITS MANAGER PT HOME VISIT Social History Tobacco Use [...] often do you attend chur ch or buddhist services? More than 4 times per year [...] Questionnaire-2 Score 0 01/06/2024 [facility] of Occupat ional Health - Occupational [...] on file Legal Sex Male 3:25 PM ADJUSTMENT CLERK Gender Identity Not on file Sexual Orientation Not on file documented as of this encounter Last Filed Vital Signs Vital Sign Reading Time Taken Comments Blood Pressure 116/70 01/20/2024 12:26 PM CDT Pulse 74 01/20/2024 12:26 PM CDT Temperature 36.8 ??C (98.2 ??F) 01/20/2024 12:26 PM C DT Respiratory Rate 18 01/20/2024 12:26 PM CDT Oxygen Saturation 97% 01/20/2024 12:26 PM CDT Inhaled Oxygen Concentration - - Weight - - Height - - Body Mass Index - - documented in this encounter Miscellaneous Notes * Home Health Plan for Next Visit - Bing Walker PTA - 01/20/2024 12:55 PM CDT Reason for today's visit pt seen today for continued education for safe transfers, amb and progresswith HEP to improve balance, strength and endurance Discuss plan of care with pt Discharge planning discussed pts goals Plan for next visit continue with ex, amb, balance activity documented in this encounter Plan of Treatment Upcoming Encounters Date Type Department Care Team (Latest Contact Info) Description 10/23/2024 10:00 AM ADJUSTMENT CLERK Hospital Encounter [facility] Operating Room [address] [place] [address] [place] [address] [address] 10/23/2024 10:00 AM ADJUSTMENT CLERK - 10/23/2024 1:00 PM ADJUSTMENT CLERK Surgery [facility] Operating Room [address] [place] [address] [place] [address] [address] ARTHROPLASTY TOTAL KNEE LEFT Scheduled Procedures Name Priority Associated Diagnoses Date/Ti me ARTHROPLASTY TOTAL KNEE left knee osteoarthritis 10/23/2024 10:00 AM ADJUSTMENT CLERK ESOPHAGOGASTRODUODENOSCOPY Dysphagia, unspecified type documented as of [...] home health visit Disciplines: SN, PT, OT, WELLNESS NURSE, WAREHOUSE FOREMAN, Skilled Disciplines Monitor patient's vital signs every [...] visit during episode of care Description: Home substance abuse clinician to measure vital signs during every [...] setting Scheduled pt is homebound due to recent CVA, req assistance out of the house, req [...] gait/stair training. Problem:PT Stroke/CVA Completed pt amb 80' with rasheed walker with CGA/min assist. pt req vc to stand erect, increase SHANA, proper walker placement. pt fatigues with amb and foot clearance decreases on L and pt starts to lean more on the walker Bed Mobility/Transfer Training Description: Instruct patient/caregiver and perform bed mobility/transfer training. Problem:PT Stroke/CVA Completed pt transfers from sit-stand with CGA/min assist. pt instructed to stand for short time before amb Balance Training/Activities Description: Instruct patient/caregiver and perform balance training activities. Problem:PT Stroke/CVA Completed pt performed sidestepping along railing with CGA and vc for proper technique and to stand erect Therapeutic Exercise Description: Perform therapeutic exercise, progressing as tolerated. Problem:PT Stroke/CVA Completed pt in supine performed ap,qs,slr,heel slides, hip abd, 10 reps. in sitting laq and marching, and in standing heel raises, SL loli on L, hip abd,mini squats 15 reps. pt req 2 seated rest between ex. pt req vc for proper technique. pt instructed to perform HEP 2-3x a day documented in this encounter Care Teams Block Captain Relationship Specialty Start Date End Date Wolfgang Serrano MD PCP - General Family Medicine 05/05/23 08/02/24 Unknown, Notinfile 03/12/22 [place] [address] [place] [address] 03/12/22 Chuy Enriquez MD [address] [place] [address] Consulting Physician Pulmonary Disease 10/13/23 Luis Felipe Cedillo MD [address], [place] [id number] Consulting Physician Gastroenterology 10/13/23 Marlene Thornton MD [address], [place] [address] Surgeon Vascular Surgery 11/10/23 documented as of this encounter
--- OUTSIDE RECORDS SUMMARY | 2024-10-11 01:54 | XMS_ITS | Encounter Summary ---
Author Organization [facility] Healthcare Address [address] [place] [address] Care Team Providers Care Psychologist Industrial Organizational Name Role Phone Wolfgang Serrano MD Primary Care Provider [phone] Unknown, Notinfile Unavailable Unavailable Santino Funk MD Unavailable Chuy Enriquez MD Unavailable Luis Felipe Cedillo MD Unavailable [phone] Marlene Thornton MD Unavailable Reason for Visit * Auth/Cert (Routine) Specialty Diagnoses / Procedures Referred By Contac t Referred To Contact Referral ID Status Reason Start Date Expiration Date Visits Re quested Visits Authorized [id number] 1 60 Encounter Details Date Type Department Care Team (Late st Contact Info) Description 01/27/2024 1:30 PM CDT Home Care Visit [facility] [address] [address] [address] [place] [address] Jacque Tolliver, PT PT REASSESSMENT [...] or pharmacy Sometimes 01/09/2024 [facility] Utilities Answer Date Recorded In the [...] any clubs o r organizations such as hinduism groups, unions, fraternal or athletic groups, or [...] Recorded Patient Health Questionnaire-2 Score 0 01/06/2024 [facility] [place] of Occupat ional Health - Occupational Stress [...] on file Legal Sex Male 3:25 PM ICE CREAM VENDOR Gender Identity Not on file Sexual Orientation Not on file documented as of this encounter Last Filed Vital Signs Vital Sign Reading Time Taken Comments Blood Pressure 148/78 01/27/2024 12:00 AM CDT Pulse 65 01/27/2024 12:00 AM CDT Temperature 36.2 ??C (97.1 ??F) 01/27/2024 12:00 AM C DT Respiratory Rate 18 01/27/2024 12:00 AM CDT Oxygen Saturation 98% 01/27/2024 12:00 AM CDT Inhaled Oxygen Concentration - - Weight - - Height - - Body Mass Index - - documented in this encounter Miscellaneous Notes * Home Health Visit Narrative - Jacque Tolliver, PT - 01/27/2024 2:06 PM CDT Patient states he is doing better with walking, transfers, and standing but has continued c/o difficulty with L arm. Patient is completing HEP on a regular basis and is motivated toward improvementand has continued rehab potential. Will continue PT POC with emphasis on advancing HEP, HEP compliance and advancing gait and balance training. Patient is pleased with agency services and agrees withPT POC documented in this encounter Plan of Treatment Upcoming Encounters Date Type Department Care Team (Latest Contact Info) Description 10/23/2024 10:00 AM ICE CREAM VENDOR Hospital Encounter [facility] Operating Room [address] [place] [address] [place] [address] [address] 10/23/2024 10:00 AM ICE CREAM VENDOR - 10/23/2024 1:00 PM ICE CREAM VENDOR Surgery [facility] Operating Room [address] [place] [address] [place] [address] [address] ARTHROPLASTY TOTAL KNEE LEFT Scheduled Procedures Name Priority Associated Diagnoses Date/Ti me ARTHROPLASTY TOTAL KNEE left knee osteoarthritis 10/23/2024 10:00 AM ICE CREAM VENDOR ESOPHAGOGASTRODUODENOSCOPY Dysphagia, unspecified type documented as of [...] home health visit Disciplines: SN, PT, OT, RESIDENCE SUPERVISOR, ENVIRONMENTAL OFFICER, Skilled Disciplines Monitor patient's vital signs every [...] visit during episode of care Description: Home chainstitch seat joiner to measure vital signs during every home [...] perform balance training activities. Problem:PT Stroke/CVA Completed documented in this encounter Care Teams Psychologist Industrial Organizational Relationship Specialty Start Date End Date Wolfgang Serrano MD PCP - General Family Medicine 05/05/23 08/02/24 Unknown, Notinfile 03/12/22 [place] [id number] [employer] [facility] [address] [place] [address] 03/12/22 Chuy Enriquez MD [address] [place] [address] Consulting Physician Pulmonary Disease 10/13/23 Luis Felipe Cedillo MD [address] [place] [address] Consulting Physician Gastroenterology 10/13/23 Marlene Thornton MD [address] [facility] [address], [place] [address] Surgeon Vascular Surgery 11/10/23 documented as of this encounter
--- OUTSIDE RECORDS SUMMARY | 2024-10-11 01:54 | XMS_ITS | Encounter Summary ---
Author Organization [facility] Healthcare Address [address] [place] [address] Care Team Providers Care Building Cleaning Supervisor Name Role Phone Wolfgang Serrano MD Primary Care Provider Unknown, Notinfile Unavailable Unavailable Santino Funk MD Unavailable [phone] Chuy Enriquez MD Unavailable Luis Felipe Cedillo MD Unavailable Marlene Thornton MD Unavailable Reason for Visit * Auth/Cert (Routine) Specialty Diagnoses / Procedures Referred By Contac t Referred To Contact Referral ID Status Reason Start Date Expiration Date Visits Re quested Visits Authorized [id number] 1 60 Encounter Details Date Type Department Care Team (Late st Contact Info) Description 01/25/2024 9:30 AM CDT Home Care Visit [facility] [address] [address] [address] [place] [address] Anjelica Winter, HIDE EXAMINER HIDE EXAMINER HOME VISIT Social History Tobacco Use Types [...] materials from doctor or pharmacy Sometimes 01/09/2024 [facility] Utilities Answer Date Recorded In the past 12 months has e 3nder, gas, oil, or water company threatened to [...] Recorded Patient Health Questionnaire-2 Score 0 01/06/2024 [facility] [place] of Occupat ional Health - Occupational Stress [...] No 01/06/2024 Housing Stability Vital Sign Answer Kney e Recorded In the last 12 months, [...] on file Legal Sex Male 3:25 PM PHYSICIST ACOUSTICS Gender Identity Not on file Sexual Orientation Not on file documented as of this encounter Last Filed Vital Signs Vital Sign Reading Time Taken Comments Blood Pressure 122/68 01/25/2024 9:39 AM CDT Pulse 86 01/25/2024 9:39 AM CDT Temperature 36.3 ??C (97.3 ??F) 01/25/2024 9:39 AM CD T Respiratory Rate 18 01/25/2024 9:39 AM CDT Oxygen Saturation 96% 01/25/2024 9:39 AM CDT Inhaled Oxygen Concentration - - Weight - - Height - - Body Mass Index - - documented in this encounter Miscellaneous Notes * Home Health Plan for Next Visit - Anjelica Winter SLP - 01/25/2024 9:57 AM CDT Reason for today's visit: skilled [...] (Latest Contact Info) Description 10/23/2024 10:00 AM PHYSICIST ACOUSTICS Hospital Encounter [facility] Operating Room [address] [place] [address] [place] [address] [address] 10/23/2024 10:00 AM PHYSICIST ACOUSTICS - 10/23/2024 1:00 PM PHYSICIST ACOUSTICS Surgery [facility] Operating Room [address] [place] [address] [place] [address] [address] ARTHROPLASTY TOTAL KNEE LEFT Scheduled Procedures Name Priority Associated Diagnoses Date/Ti me ARTHROPLASTY TOTAL KNEE left knee osteoarthritis 10/23/2024 10:00 AM PHYSICIST ACOUSTICS ESOPHAGOGASTRODUODENOSCOPY Dysphagia, unspecified type documented as of this encounter Visit Diagnoses Not on filedocumented in this encounter Home Health Visit - Care Plan Visit Details Visit Type -HIDE EXAMINER Home Visit Discipline -Speech Language Pathology Problems Problem Description Start Date Status Goals Interventions Homebound Status Disciplines: Skilled Disciplines Patient's homebound status 01/09/2024 Active 1 goal linked to scheduled/docume nted intervention 1 goal intervention scheduled/documen ana in this visit Monitor patient's vital signs every home health visit Disciplines: SN, PT, OT, HIDE EXAMINER, AUTOMOTIVE LEASING SALES REPRESENTATIVE, Skilled Disciplines Monitor patient's vital signs every [...] goal interventions scheduled/documen ana in this visit HIDE EXAMINER Impaired Swallowing Disciplines: Speech Language Pathology Impaired swallow with oral phase dysphagia 01/14/2024 Active - 3 problem interventions scheduled/documen [...] visit during episode of care Description: Home loan operations specialist to measure vital signs during every [...] (HEP) Description: Instruct patient/caregiver and perform HEP. Problem:HIDE EXAMINER Impaired Swallowing Completed Review and continued development of HEP for oral motor abilities with patient and patient caregiver demonstrating comprehension. Instruct appropriate strategies to prevent choking/aspiration Description: Instruct patient/caregiver on appropriate strategies to prevent choking / aspiration Problem:HIDE EXAMINER Impaired Swallowing Completed Education regarding safe swallow strategies including decreased rate, decreased bolus size, alternating liquids and solids, sitting up straight during and 30 - 45 minutes following oral intake, and adding extra moisture to foods when appropriate (extra sauce, gravy, condiments, syrup, etc) with patient demonstrating comprehension. Instruct on swallowing exercises Description: Teach swallow exercises Problem:HIDE EXAMINER Impaired Swallowing Completed Completed oral motor and airway protection exercises including labial protrusion, retraction, closure, and lateralization and lingual protrusion, lateralization, and sweep with minimal skilled v/v instruction provided as needed. Instruct cognitive strategies Description: Instruct patient/caregiver in cognitive strategies. Problem:Instruct/melinda jenkinsate cognitive function Completed Education regarding cognitive stimulation tasks including reading, books on tape, podcasts, and new learning with patient demonstrating comprehension. documented in this encounter Care Teams Building Cleaning Supervisor Relationship Specialty Start Date End Date Wolfgang Serrano MD PCP - General Family Medicine 05/05/23 08/02/24 Unknown, Notinfile 03/12/22 [place] [address] [place] [address] 03/12/22 Chuy Enriquez MD [address] [place] [address] Consulting Physician Pulmonary Disease 10/13/23 Luis Felipe Cedillo MD [address] [place] [address] Consulting Physician Gastroenterology 10/13/23 Marlene Thornton MD [address] [place] [address] Surgeon Vascular Surgery 11/10/23 documented as of this encounter
--- OUTSIDE RECORDS SUMMARY | 2024-10-11 01:54 | XMS_ITS | Encounter Summary ---
Author Organization [facility] Healthcare Address [address] [place] [address] Care Team Providers Care Backrest Assembler Name Role Phone Wolfgang Serrano MD Primary Care Provider Unknown, Notinfile Unavailable Unavailable Santino Funk MD Unavailable Chuy Enriquez MD Unavailable Luis Felipe Cedillo MD Unavailable [phone] Marlene Thornton MD Unavailable Encounter Details Date Type Department Care Team (Late st Contact Info) Description 01/21/2024 Telephone [facility] Scheduling [address] [place] [address] Resource, Homecare Scheduling Social History Tobacco Use Types Packs/Day Years [...] Recorded Patient Health Questionnaire-2 Score 0 01/06/2024 [facility] of Occupat ional Health - Occupational [...] on file Legal Sex Male 3:25 PM TEMPORARY RECEPTIONIST Gender Identity Not on file Sexual Orientation Not on file documented as of this encounter Miscellaneous Notes * Telephone Encounter - Aminta Melo - 01/21/2024 10:00 AM CDT 01/20 pt called to advise we need to cancel todays visit gh documented in this encounter Plan of Treatment Upcoming Encounters Date Type Department Care Team (Latest Contact Info) Description 10/23/2024 10:00 AM TEMPORARY RECEPTIONIST Hospital Encounter [facility] Operating Room [address] [place] [address] [place] [id number] [place] [address] 10/23/2024 10:00 AM TEMPORARY RECEPTIONIST - 10/23/2024 1:00 PM TEMPORARY RECEPTIONIST Surgery [facility] Operating Room [address] [place] [id number] [place] [address] [facility] [address] [place] [address] ARTHROPLASTY TOTAL KNEE LEFT Scheduled Procedures Name Priority Associated Diagnoses Date/Ti me ARTHROPLASTY TOTAL KNEE left knee osteoarthritis 10/23/2024 10:00 AM TEMPORARY RECEPTIONIST ESOPHAGOGASTRODUODENOSCOPY Dysphagia, unspecified type documented as of this encounter Visit Diagnoses Not on filedocumented in this encounter Care Teams Backrest Assembler Relationship Specialty Start Date End Date Wolfgang Serrano MD PCP - General Family Medicine 05/05/23 08/02/24 Unknown, Notinfile 03/12/22 [place] [address] [facility] [address] [place] [address] 03/12/22 Chuy Enriquez MD [address] [place] [address] Consulting Physician Pulmonary Disease 10/13/23 Luis Felipe Cedillo MD [address] [place] [address] Consulting Physician Gastroenterology 10/13/23 Marlene Thornton MD [address] [place] [address] Surgeon Vascular Surgery 11/10/23 documented as of this encounter
--- OUTSIDE RECORDS SUMMARY | 2024-10-11 01:54 | XMS_ITS | Encounter Summary ---
Author Organization [facility] Address [address] [place] [address] Phone Care Team Providers Care Executive Assistant Name Role Phone Wolfgang Serrano MD Primary Care Provider Unknown, Notinfile Unavailable Unavailable Santino Funk MD Unavailable Chuy Enriquez MD Unavailable [phone] Luis Felipe Cedillo MD Unavailable [phone] Marlene Thornton MD Unavailable [phone] Reason for Referral * Diagnostic Imaging (Routine) - Closed Specialty Diagnoses / Procedures Referred By Contac t Referred To Contact Diagnoses Moderate malnutrition (CMS/HCC) (HCC) Dysphagia, unspecified type Procedures FL Esophagram, Single Contrast Yfn Roe MD [address] [place] [address] Phone: tel: fax: [address] [address] Referral ID Status Reason Start Date Expiration Date Visits Re quested Visits Authorized [id number] Closed 02/04/2024 03/05/2025 1 1 Encounter Details Date Type Department Care Team (Late st Contact Info) Description 02/04/[address] [facility] Gastroenterology [address] [facility] [address] [place] [address] Jenni Eddy RN Dysphagia, unspecified type (Primary Dx); Moderate malnutrition (CMS/HCC) Social History Tobacco Use Types Packs/Day Years [...] materials from doctor or pharmacy Sometimes 01/09/2024 [facility] Utilities Answer Date Recorded In the past 12 months has [employer], gas, oil, or water company threatened [...] any clubs o r organizations such as orthodox groups, unions, fraternal or athletic groups, or [...] Questionnaire-2 Score 0 01/06/2024 [facility] [place] of Occupat ional Health - Occupational Stress [...] on file Legal Sex Male 3:25 PM FAMILY 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 CONSUMER 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 TEACHER Gender Identity Not on file Sexual Orientation Not on file documented as of this encounter Plan of Treatment Upcoming Encounters Date Type Department Care Team (Latest Contact Info) Description 10/23/2024 10:00 AM FAMILY AND CONSUMER EDUCATION TEACHER Hospital Encounter [facility] Operating [address] [address] [place] [address] [place] [address] [address] 10/23/2024 10:00 AM FAMILY AND CONSUMER EDUCATION TEACHER - 10/23/2024 1:00 PM FAMILY AND CONSUMER EDUCATION TEACHER Surgery [facility] Operating Room [id number] [place] [address] [place] [address] [address] ARTHROPLASTY TOTAL KNEE LEFT Scheduled Procedures Name Priority Associated Diagnoses Date/Ti me ARTHROPLASTY TOTAL KNEE left knee osteoarthritis 10/23/2024 10:00 AM FAMILY AND CONSUMER EDUCATION TEACHER ESOPHAGOGASTRODUODENOSCOPY Dysphagia, unspecified type documented as of this encounter Results * FL Esophagram, Single [...] Lindsey M.D. Yfn Roe MD IMG FLUOROSCOPY ALAYNA ROWE Final Result documented in this encounter Visit Diagnoses Diagnosis Dysphagia, unspecified type- Primary Moderate malnutrition (CMS/HCC) Moderate malnutrition (CMS/HCC) Dysphagia, unspecified type documented in this encounter Care Teams Executive Assistant Relationship Specialty Start Date End Date Wolfgang Serrano MD PCP - General Family Medicine 05/05/23 08/02/24 Unknown, Notinfile 03/12/22 [place] [address] [facility] [address] [place] [address] 03/12/22 Chuy Enriquez MD [address] [place] [address] Consulting Physician Pulmonary Disease 10/13/23 Luis Felipe Cedillo MD [address] [place], [place] [address] Consulting Physician Gastroenterology 10/13/23 Marlene Thornton MD [address] [facility] [address], [place] [address] Surgeon Vascular Surgery 11/10/23 documented as of this encounter
--- OUTSIDE RECORDS SUMMARY | 2024-10-11 01:54 | XMS_ITS | Encounter Summary ---
Author Organization [facility] Healthcare Address [address] [place] [address] Care Team Providers Care Band Edger Name Role Phone Wolfgang Serrano MD Primary Care Provider [phone] Unknown, Notinfile Unavailable Unavailable Santino Funk MD Unavailable Chuy Enriquez MD Unavailable [phone] Luis Felipe Cedillo MD Unavailable Marlene Thornton MD Unavailable Reason for Visit * Auth/Cert (Routine) Specialty Diagnoses / Procedures Referred By Contac t Referred To Contact Referral ID Status Reason Start Date Expiration Date Visits Re quested Visits Authorized [id number] 1 60 Encounter Details Date Type Department Care Team (Late st Contact Info) Description 01/19/2024 10:00 AM CDT Home Care Visit [facility] [address] [place] [address] Anjelica Winter, CAPACITY MANAGEMENT SPECIALIST CAPACITY MANAGEMENT SPECIALIST HOME VISIT Social History Tobacco Use Types [...] materials from doctor or pharmacy Sometimes 01/09/[address] [facility] Utilities Answer Date Recorded In the past 12 months has e [employer], gas, oil, or water company threatened [...] any clubs o r organizations such as druze groups, unions, fraternal or athletic groups, or [...] Patient Health Questionnaire-2 Score 0 01/06/2024 [facility] [place] of Occupat ional Health - Occupational Stress [...] on file Legal Sex Male 3:25 PM DIETARY CLERK Gender Identity Not on file Sexual Orientation Not on file documented as of this encounter Last Filed Vital Signs Vital Sign Reading Time Taken Comments Blood Pressure 132/68 01/19/2024 10:20 AM CDT Pulse 73 01/19/2024 10:20 AM CDT Temperature 36.2 ??C (97.1 ??F) 01/19/2024 10:20 AM C DT Respiratory Rate 18 01/19/2024 10:20 AM CDT Oxygen Saturation 96% 01/19/2024 10:20 AM CDT Inhaled Oxygen Concentration - - Weight - - Height - - Body Mass Index - - documented in this encounter Miscellaneous Notes * Home Health Plan for Next Visit - Anjelica Winter SLP - 01/19/2024 10:40 AM CDT Reason for today's visit: skilled [...] (Latest Contact Info) Description 10/23/2024 10:00 AM DIETARY CLERK Hospital Encounter [facility] Operating Room [address] [place] [address] [place] [address] [address] 10/23/2024 10:00 AM DIETARY CLERK - 10/23/2024 1:00 PM DIETARY CLERK Surgery [facility] Operating Room [address] [place] [address] [place] [address] [address] ARTHROPLASTY TOTAL KNEE LEFT Scheduled Procedures Name Priority Associated Diagnoses Date/Ti me ARTHROPLASTY TOTAL KNEE left knee osteoarthritis 10/23/2024 10:00 AM DIETARY CLERK ESOPHAGOGASTRODUODENOSCOPY Dysphagia, unspecified type documented as of this encounter Visit Diagnoses Not on filedocumented in this encounter Home Health Visit - Care Plan Visit Details Visit Type -CAPACITY MANAGEMENT SPECIALIST Home Visit Discipline -Speech Language Pathology Problems Problem Description Start Date Status Goals Interventions Homebound Status Disciplines: Skilled Disciplines Patient's homebound status 01/09/2024 Active 1 goal linked to scheduled/docume nted intervention 1 goal intervention scheduled/documen ana in this visit Monitor patient's vital signs every home health visit Disciplines: SN, PT, OT, CAPACITY MANAGEMENT SPECIALIST, INFANT BABYSITTER, Skilled Disciplines Monitor patient's vital signs every [...] goal interventions scheduled/documen ana in this visit CAPACITY MANAGEMENT SPECIALIST Impaired Swallowing Disciplines: Speech Language Pathology Impaired [...] visit during episode of care Description: Home clinical study manager to measure vital signs during every home [...] (HEP) Description: Instruct patient/caregiver and perform HEP. Problem:CAPACITY MANAGEMENT SPECIALIST Impaired Swallowing Completed Initial development of HEP for oral motor abilities with patient and patient caregiver demonstrating comprehension, handout provided. Instruct appropriate strategies to prevent choking/aspiration Description: Instruct patient/caregiver on appropriate strategies to prevent choking / aspiration Problem:CAPACITY MANAGEMENT SPECIALIST Impaired Swallowing Completed Education regarding safe swallow strategies including decreased rate, decreased bolus size, alternating liquids and solids, sitting up straight during and 30 - 45 minutes following oral intake, and adding extra moisture to foods when appropriate (extra sauce, gravy, condiments, syrup, etc) with patient demonstrating comprehension. Instruct on swallowing exercises Description: Teach swallow exercises Problem:CAPACITY MANAGEMENT SPECIALIST Impaired Swallowing Completed Completed oral motor exercises including labial protrusion, retraction, lateralization, and closure and lingual protrusion, lateralization, and sweep with skilled v/v instruction provided as need. documented in this encounter Care Teams Band Edger Relationship Specialty Start Date End Date Wolfgang Serrano MD PCP - General Family Medicine 05/05/23 08/02/24 Unknown, Notinfile 03/12/22 [place] [address] [address] [place] [address] 03/12/22 Chuy Enriquez MD [address] [facility] [address] [place] [address] Consulting Physician Pulmonary Disease 10/13/23 Luis Felipe Cedillo MD [address] [facility] [address], [place] [address] Consulting Physician Gastroenterology 10/13/23 Marlene Thornton MD [address] [facility] [address] [address] Surgeon Vascular Surgery 11/10/23 documented as of this encounter
--- OUTSIDE RECORDS SUMMARY | 2024-10-11 01:54 | XMS_ITS | Encounter Summary ---
Author Organization [facility] Healthcare Address [address] [place] [address] Care Team Providers Care Medical Research Associate Name Role Phone Wolfgang Serrano MD Primary Care Provider Unknown, Notinfile Unavailable Unavailable Santino Funk MD Unavailable [phone] Chuy Enriquez MD Unavailable [phone] Luis Felipe Cedillo MD Unavailable Marlene Thornton MD Unavailable Reason for Visit * Auth/Cert (Routine) Specialty Diagnoses / Procedures Referred By Contac t Referred To Contact Referral ID Status Reason Start Date Expiration Date Visits Re quested Visits Authorized [id number] 1 60 Encounter Details Date Type Department Care Team (Late st Contact Info) Description 01/28/2024 4:00 PM CDT Home Care Visit [facility] Health [address] [address] [address] [place] [address] Sarah Paulino COTA OT HOME [...] materials from doctor or pharmacy Sometimes 01/09/2024 [facility] Utilities Answer Date Recorded In [...] any clubs o r organizations such as buddhist groups, unions, fraternal or athletic groups, or [...] Questionnaire-2 Score 0 01/06/2024 [facility] [place] of Occupat ional Health - Occupational Stress [...] on file Legal Sex Male 3:25 PM 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 Gender Identity Not on file Sexual Orientation Not on file documented as of this encounter Last Filed Vital Signs Vital Sign Reading Time Taken Comments Blood Pressure 128/76 01/28/2024 2:47 PM CDT Pulse 58 01/28/2024 2:47 PM CDT Temperature 36.6 ??C (97.9 ??F) 01/28/2024 2:47 PM CD T Respiratory Rate 18 01/28/2024 2:47 PM CDT Oxygen Saturation 98% 01/28/2024 2:47 PM CDT Inhaled Oxygen Concentration - - Weight - - Height - - Body Mass Index - - documented in this encounter Miscellaneous Notes * Home Health Plan for Next Visit - Sarah Paulino COTA - 01/28/2024 2:54 PM CDT Reason for today's visit: L UE PROM/stretching, positioning, safe techniques for completing IADLs Discussed plan of care with pt/pt's spouse and both in agreement with POC Discharge planning: home with 24 hour cg assistance Plan for next visit: Safe techniques for LB dressing, activities to facilitate increased strength/ROM in L UE documented in this encounter Plan of Treatment Upcoming Encounters Date Type Department Care Team (Latest Contact Info) Description 10/23/2024 10:00 AM 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 Hospital Encounter [facility] Operating Room [address] [place] [address] [place] [address] [address] 10/23/2024 10:00 AM 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 - 10/23/2024 1:00 PM 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 Surgery [facility] Operating Room [address] [place] [address] [place] [address] [address] ARTHROPLASTY TOTAL KNEE LEFT Scheduled Procedures Name Priority Associated Diagnoses Date/Ti me ARTHROPLASTY TOTAL KNEE left knee osteoarthritis 10/23/2024 10:00 AM 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 ESOPHAGOGASTRODUODENOSCOPY Dysphagia, unspecified type documented as [...] home health visit Disciplines: SN, PT, OT, POLY AREA SUPERVISOR, MANDREL MAKER, Skilled Disciplines Monitor patient's vital signs every [...] 01/14/2024 Active - 3 problem interventions scheduled/documen naa in this visit OT Impaired IADLs Disciplines: [...] Function and/or Fine Motor Skills Completed Instructed pt/pt's spouse on proper positioning of L UE (elevating on lap tray, pillow or use of sling) to prevent further subluxation of L shoulder. Pt and pt's spouse demonstrates good understanding. Taping Description: Instruct in use of UE taping of left UE Problem:OT Impaired UE Function and/or Fine Motor Skills Completed Re-applied kinesiotape to pt's L shoulder due to a piece coming off. Instructed pt/pt's spouse on use of kinesiotpae (to facilitate muscle contraction, decrease edema and support of shoulder and wrist). Kinesiotape on wrist still intact. Instructed pt and spouse to remove kinesiotape if pt's skin becomes reddened or irritated, or pt is unable to tolerate tape. Pt and spouse demonstrate good understanding. Inspected pt's skin for reddness or irritation - none present. Therapeutic Exercise Description: Perform and progress therapeutic exercise. Problem:OT Impaired UE Function and/or Fine Motor Skills Completed Continued instruction with pt and pt's spouse on PROM exercises (shoulder, elbow, wrist, digit flex/ext, pro/supination, shoulder ab/adduction) to increase strength and ROM in L UE Pt receives PROM exercises 10 reps X 1 Pt and pt's spouse demonstrate good understanding with assisting pt with PROM exercises. Instruct in house management/homemaking activities Description: Instruct patient/caregiver for improved performance with house management/homemaking activities. Problem:OT Impaired IADLs Completed Instructed pt on safe techniques for completing kitchen mobility from w/c level (safe techniques for retrieving items from refrigerator, cabinets and use of microwave). Also instructed pt on safe techniques for making cup of coffee and transporting cup of coffee from kitchen to living room, while manuevering w/c. Recommended use of travel mug with lid when transporting cup of coffee. Instructed pt to begin light meal prep/kitchen mobility from w/c level, only with cgs assistance and supervision. Pt and pt's spouse demonstrates good understanding. documented in this encounter Care Teams Medical Research Associate Relationship Specialty Start Date End Date Wolfgang Serrano MD PCP - General Family Medicine 05/05/23 08/02/24 Unknown, Notinfile 03/12/22 [place] [address] [address] 03/12/22 Chuy Erniquez MD [address] [facility] [address] [place] [address] Consulting Physician Pulmonary Disease 10/13/23 Luis Felipe Cedillo MD [address] [facility] [address], [place] [address] Consulting Physician Gastroenterology 10/13/23 Marlene Thornton MD [address] [facility] [address] [address] Surgeon Vascular Surgery 11/10/23 documented as of this encounter
--- OUTSIDE RECORDS SUMMARY | 2024-10-11 01:54 | XMS_ITS | Encounter Summary ---
Author Organization [facility] Healthcare Address [address] [place] [address] Care Team Providers Care Slate Trimmer Name Role Phone Wolfgang Serrano MD Primary Care Provider Unknown, Notinfile Unavailable Unavailable Santino Funk MD Unavailable [phone] Chuy Enriquez MD Unavailable Luis Felipe Cedillo MD Unavailable Marlene Thornton MD Unavailable Reason for Visit * Auth/Cert (Routine) Specialty Diagnoses / Procedures Referred By Contac t Referred To Contact Referral ID Status Reason Start Date Expiration Date Visits Re quested Visits Authorized [id number] 1 60 Encounter Details Date Type Department Care Team (Late st Contact Info) Description 02/08/2024 1:00 PM CDT Home Care Visit [facility] Health [address] [place] [address] Bing Walker, DINING SERVER PT HOME VISIT Social History Tobacco Use [...] often do you attend chur ch or jehovah's witness services? More than 4 times per year 12/16/2023 Do you belong to any clubs o r organizations such as confucianism groups, unions, fraternal or athletic groups, or [...] Recorded Patient Health Questionnaire-2 Score 0 01/06/2024 [facility] [place] of Occupat ional Health - Occupational Stress [...] on file Legal Sex Male 3:25 PM COLLEGE INTERN Gender Identity Not on file Sexual Orientation Not on file documented as of this encounter Last Filed Vital Signs Vital Sign Reading Time Taken Comments Blood Pressure 112/70 02/08/2024 1:13 PM CDT Pulse 80 02/08/2024 1:13 PM CDT Temperature 36.2 ??C (97.2 ??F) 02/08/2024 1:13 PM CD T Respiratory Rate 18 02/08/2024 1:13 PM CDT Oxygen Saturation 97% 02/08/2024 1:13 PM CDT Inhaled Oxygen Concentration - - Weight - - Height - - Body Mass Index - - documented in this encounter Miscellaneous Notes * Home Health Plan for Next Visit - Bing Walker PTA - 02/08/2024 1:20 PM CDT Reason for today's visit pt seen today for continued education for safe transfers, amb and progresswith HEP to improve balance, strength and endurance Discuss plan of care with pt Discharge planning discussed pts goals and progress Plan for next visit continue with ex, amb. balance documented in this encounter Plan of Treatment Upcoming Encounters Date Type Department Care Team (Latest Contact Info) Description 10/23/2024 10:00 AM COLLEGE INTERN Hospital Encounter [facility] Operating Room [address] [place] [address] [place] [address] [address] 10/23/2024 10:00 AM COLLEGE INTERN - 10/23/2024 1:00 PM COLLEGE INTERN Surgery [facility] Operating Room [address] [place] [address] [place] [address] [address] ARTHROPLASTY TOTAL KNEE LEFT Scheduled Procedures Name Priority Associated Diagnoses Date/Ti me ARTHROPLASTY TOTAL KNEE left knee osteoarthritis 10/23/2024 10:00 AM COLLEGE INTERN ESOPHAGOGASTRODUODENOSCOPY Dysphagia, unspecified type documented as of [...] home health visit Disciplines: SN, PT, OT, CORN LAB TECHNICIAN, PEDIATRIC NURSE, Skilled Disciplines Monitor patient's vital signs every [...] visit during episode of care Description: Home milieu manager to measure vital signs during every [...] pt is homebound due to fall risk, recent CVA, req assistance out of the [...] gait/stair training. Problem:PT Stroke/CVA Completed pt amb 50'x3 with rasheed walker with CGA. pt amb slowly with step to gt pattern. pt req vc for proper walker placement Bed Mobility/Transfer Training Description: Instruct patient/caregiver and perform bed mobility/transfer training. Problem:PT Stroke/CVA Completed pt transfers on and off the bed and from sit-stand and stand to sit with CGA Balance Training/Activities Description: Instruct patient/caregiver and perform balance training activities. Problem:PT Stroke/CVA Completed pt performed sidestepping and forward/backward along railing using R hand on rail for support and req vc for proper technique Therapeutic Exercise Description: Perform therapeutic exercise, progressing as tolerated. Problem:PT Stroke/CVA Completed pt in supine performed ap,qs,slr,saq, heel slides,bridging, hip abd, bent knee hip abd/add 15 reps of all ex. pt in sitting performed laq and marching 15 reps. in standing heel raises, marching, hip abd,mini squats 15 reps. pt instructed to perform HEP 2-3x a day documented in this encounter Care Teams Slate Trimmer Relationship Specialty Start Date End Date Wolfgang Serrano MD PCP - General Family Medicine 05/05/23 08/02/24 Unknown, Notinfile 03/12/22 [place] [address] [facility] [address] [place] [address] 03/12/22 Chuy Enriquez MD [address] [place] [address] Consulting Physician Pulmonary Disease 10/13/23 Luis Felipe Cedillo MD [address] [address] Consulting Physician Gastroenterology 10/13/23 Marlene Thornton MD [address] [facility] [address] [address] Surgeon Vascular Surgery 11/10/23 documented as of this encounter
--- OUTSIDE RECORDS SUMMARY | 2024-10-11 01:54 | XMS_ITS | Encounter Summary ---
Author Organization [facility] Address [address] [place] [address] Phone Care Team Providers Care Dealer Accounts Investigator Name Role Phone Wolfgang Serrano MD Primary Care Provider Unknown, Notinfile Unavailable Unavailable Santino Funk MD Unavailable [phone] Chuy Enriquez MD Unavailable [phone] Luis Felipe Cedillo MD Unavailable Marlene Thornton MD Unavailable [phone] Encounter Details Date Type Department Care Team (Late st Contact Info) Description 02/04/2024 Orders Only [facility] Gastroenterology [facility] Medical Office Building [address] [place] [address] Yfn Roe MD [address] [place] [address] Social History Tobacco Use Types Packs/Day Years [...] from doctor or pharmacy Sometimes 01/09/2024 [facility] Utilities Answer Date Recorded In the past 12 months has e [employer], [employer], oil, or water Written threatened to shut off services in your [...] Recorded Patient Health Questionnaire-2 Score 0 01/06/2024 [facility] [place] of Occupat ional Health - Occupational Stress [...] on file Legal Sex Male 3:25 PM 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 ARCHITECT Gender Identity Not on file Sexual Orientation Not on file documented as of this encounter Plan of Treatment Upcoming Encounters Date Type Department Care Team (Latest Contact Info) Description 10/23/2024 10:00 AM ANALYTICS ARCHITECT Hospital Encounter [facility] Operating Room [address] [place] [address] [place] [address] [address] 10/23/2024 10:00 AM ANALYTICS ARCHITECT - 10/23/2024 1:00 PM ANALYTICS ARCHITECT Surgery [facility] Operating Room [id number] [place] [id number] [place] [address] [facility] [address] [place] [address] ARTHROPLASTY TOTAL KNEE LEFT Scheduled Procedures Name Priority Associated Diagnoses Date/Ti me ARTHROPLASTY TOTAL KNEE left knee osteoarthritis 10/23/2024 10:00 AM ANALYTICS ARCHITECT ESOPHAGOGASTRODUODENOSCOPY Dysphagia, unspecified type documented as of this encounter Visit Diagnoses Not on filedocumented in this encounter Care Teams Dealer Accounts Investigator Relationship Specialty Start Date End Date Wolfgang Serrano MD PCP - General Family Medicine 05/05/23 08/02/24 Unknown, Notinfile 03/12/22 [place] [address] [facility] [address] [place] [address] 03/12/22 Chuy Enriquez MD [address] [place] [address] Consulting Physician Pulmonary Disease 10/13/23 Luis Felipe Cedillo MD [address] [place] [address] Consulting Physician Gastroenterology 10/13/23 Marlene Thornton MD [address] [place] [address] Surgeon Vascular Surgery 11/10/23 documented as of this encounter
--- OUTSIDE RECORDS SUMMARY | 2024-10-11 01:54 | XMS_ITS | Encounter Summary ---
Author Organization [facility] Healthcare Address [address] [place] [address] Care Team Providers Care Silver Designer Name Role Phone Wolfgang Serrano MD Primary Care Provider Unknown, Notinfile Unavailable Unavailable Santino Funk MD Unavailable [phone] Chuy Enriquez MD Unavailable Luis Felipe Cedillo MD Unavailable Marlene Thornton MD Unavailable Reason for Visit * Auth/Cert (Routine) Specialty Diagnoses / Procedures Referred By Contac t Referred To Contact Referral ID Status Reason Start Date Expiration Date Visits Re quested Visits Authorized [id number] 1 60 Encounter Details Date Type Department Care Team (Late st Contact Info) Description 01/31/2024 4:00 PM CDT Home Care Visit [facility] Health [address] [address] [address] [place] [address] Sarah Paulino COTA OT HOME [...] materials from doctor or pharmacy Sometimes 01/09/2024 [facility] Utilities Answer Date Recorded In [...] often do you attend chur ch or congregation services? More than 4 times per year 12/16/2023 Do you belong to any clubs o r organizations such as christian groups, unions, fraternal or athletic groups, or [...] Patient Health Questionnaire-2 Score 0 01/06/2024 [facility] [place] of Occupat ional Health - Occupational [...] place to sleep or slept in a jail (including now)? No 12/16/2023 Personal Safety Answer Date Recorded Have you ever been in or are you currently in a harmful physical or emotional relationship or is someone making you feel afraid or unsafe? Denies 12/15/2023 Sex and Gender Information Value Date Recorded Sex Assigned at Not on file Legal Sex Male 3:25 PM PROBATION AGENT Gender Identity Not on file Sexual Orientation Not on file documented as of this encounter Last Filed Vital Signs Vital Sign Reading Time Taken Comments Blood Pressure 118/74 01/31/2024 4:27 PM CDT Pulse 83 01/31/2024 4:27 PM CDT Temperature 36.8 ??C (98.3 ??F) 01/31/2024 4:27 PM CD T Respiratory Rate 18 01/31/2024 4:27 PM CDT Oxygen Saturation 96% 01/31/2024 4:27 PM CDT Inhaled Oxygen Concentration - - Weight - - Height - - Body Mass Index - - documented in this encounter Miscellaneous Notes * Home Health Visit Narrative - Sarah Paulino COTA - 01/31/2024 4:17 PM CDT Supervising OTR scheduled for reassessment later this week. Pt aware and in agreement with next OT visit. Communicated with supervising OTR re: pt's current status, goals and d/c planning. * Home Health Plan for Next Visit - Sarah Paulino COTA - 01/31/2024 4:17 PM CDT Reason for today's visit: L UE PROM, activities to increase strength in L UE, safe technique for walk-in shower transfer Discussed plan of care with pt and pt in agreement with POC Discharge planning: home with pd cg/spouse assistance, 24 hour care, transition to outpatient therapy Plan for next visit: Supervising OTR scheduled to see pt for reassessment later this week. Pt awareand in agreement with next OT visit. documented in this encounter Plan of Treatment Upcoming Encounters Date Type Department Care Team (Latest Contact Info) Description 10/23/2024 10:00 AM PROBATION AGENT Hospital Encounter [facility] Operating Room [address] [place] [address] [place] [address] [address] 10/23/2024 10:00 AM PROBATION AGENT - 10/23/2024 1:00 PM PROBATION AGENT Surgery [facility] Operating Room [address] [place] [address] [place] [address] [address] ARTHROPLASTY TOTAL KNEE LEFT Scheduled Procedures Name Priority Associated Diagnoses Date/Ti me ARTHROPLASTY TOTAL KNEE left knee osteoarthritis 10/23/2024 10:00 AM PROBATION AGENT ESOPHAGOGASTRODUODENOSCOPY Dysphagia, unspecified type documented as [...] home health visit Disciplines: SN, PT, OT, LOOPING INSPECTOR, SUEDING AND BUFFING MACHINE OPERATOR, Skilled Disciplines Monitor patient's vital [...] visit during episode of care Description: Home jacquard loom card changer to measure vital signs during every home [...] CVA and compensation strategies Problem:OT Stroke/CVA Completed Energy Conservation Education Description: Instruct patient/caregiver in techniques for improved activity tolerance Problem:OT Activity Tolerance/Energy Conservation Completed Pt displays Good-/Fair+ endurance (10-11 on Aliza RPE scale) while performing L UE tabletop exercises, weight bearing activities, transfers and propelling w/c throughout home. Positioning Description: Patient/caregiver education for proper positioning. Problem:OT Impaired UE Function and/or Fine Motor Skills Completed Continued instruction on keeping L UE elevated using lap tray, pillow or sling to provide support to L UE and decrease edema. Also instructed pt to avoid letting L UE hang down when performing transfers, keeping L UE support with sling. Pt demonstrates good understanding. Taping Description: Instruct in use of UE taping of left UE Problem:OT Impaired UE Function and/or Fine Motor Skills Completed Kinesiotape still intact on pt's L UE (shoulder and forearm). Pt and spouse instructed to remove kinesiotape if pt unable to tolerate tape or skin becomes reddened or irritated. Pt and spouse demonstrate good understanding. Therapeutic Exercise Description: Perform and [...] understanding with assisting pt with PROM exercises. Instructed pt on performing tabletop exercises on L UE (shoulder ab/adduction, elbow flex/ext), to increase L UE strength and ROM. Pt was able to perform tabletop exercises 10 reps X 2 requiring min assist. Instructed pt to continue to perform tabletop exercises with cg assistance. Pt demonstrates good understanding. Also instructed pt on performing weight bearing activity by sitting on couch and leaning to left to weight bearing through L UE to facilitate improved strength/muscle contraction in L UE. Pt is able to perform weight bearing activity requiring min assist. Instructed pt to only perform weight bearing activity with cg assistance to maintain safety. Pt demonstrates good understanding. Transfer Training Description: Instruct patient/caregiver and perform transfer training. Problem:OT Impaired Functional Mobility/Balance Completed Instructed pt/spouse on safe technique for walk-in shower transfer using shower seat (recommended use of nonslip mat, rasheed cane to step up into shower, cg assistance to maintain safety). Pt requires Min A to safely transfer into/out of walk-in shower. Pt and spouse reports pt takes sponge baths daily, bathing in shower once per week. Assistive Devices/DME Description: Recommend and assist with obtaining assistive devices/DME. Problem:OT Impaired Functional Mobility/Balance Completed Discussed use of grab bars in shower, but pt unable to have grab bars installed in shower d/t glass wall/door. Possibility of using suction cup grab bar on glass wall for stability (not for body weight leverage). Discussed with patient and spouse. documented in this encounter Care Teams Silver Designer Relationship Specialty Start Date End Date Wolfgang Serrano MD PCP - General Family Medicine 05/05/23 08/02/24 Unknown, Notinfile 03/12/22 [place] [address] [place] [address] 03/12/22 Chuy Enriquez MD [address] [place] [address] Consulting Physician Pulmonary Disease 10/13/23 Luis Felipe Cedillo MD [address] [place] [address] Consulting Physician Gastroenterology 10/13/23 Marlene Thornton MD [address] [place] [address] Surgeon Vascular Surgery 11/10/23 documented as of this encounter
--- OUTSIDE RECORDS SUMMARY | 2024-10-11 01:54 | XMS_ITS | Encounter Summary ---
Author Organization [facility] Healthcare Address [address] [place] [address] Care Team Providers Care Physical Therapy Assistant Instructor Name Role Phone Wolfgang Serrano MD Primary Care Provider Unknown, Notinfile Unavailable Unavailable Santino Funk MD Unavailable Chuy Enriquez MD Unavailable [phone] Luis Felipe Cedillo MD Unavailable [phone] Marlene Thornton MD Unavailable [phone] Reason for Visit * Auth/Cert (Routine) Specialty Diagnoses / Procedures Referred By Contac t Referred To Contact Referral ID Status Reason Start Date Expiration Date Visits Re quested Visits Authorized [id number] 1 60 Encounter Details Date Type Department Care Team (Late st Contact Info) Description 01/26/2024 10:00 AM CDT Home Care Visit [facility] [address] [address] [address] [place] [address] Sarah Paulino COTA OT HOME [...] materials from doctor or pharmacy Sometimes 01/09/2024 [facility] Utilities Answer Date Recorded In [...] any clubs o r organizations such as restorationism groups, unions, fraternal or athletic groups, or [...] 0 01/06/2024 [facility] [place] of Occupat ional Health - Occupational Stress [...] on file Legal Sex Male 3:25 PM CABIN AGENT Gender Identity Not on file Sexual Orientation Not on file documented as of this encounter Last Filed Vital Signs Vital Sign Reading Time Taken Comments Blood Pressure 120/72 01/26/2024 10:42 AM CDT Pulse 79 01/26/2024 10:42 AM CDT Temperature 36.8 ??C (98.2 ??F) 01/26/2024 10:42 AM C DT Respiratory Rate 18 01/26/2024 10:42 AM CDT Oxygen Saturation 95% 01/26/2024 10:42 AM CDT Inhaled Oxygen Concentration - - Weight - - Height - - Body Mass Index - - documented in this encounter Miscellaneous Notes * Home Health Plan for Next Visit - Sarah Paulino COTA - 01/26/2024 10:27 AM CDT Reason for today's visit: Safe techniques for toileting/toilet transfer, PROM to L UE, positioning/use of kinesiotape Discussed plan of care with pt and pt in agreement with POC Discharge planning: home with spouse's/pd cgs assistance Plan for next visit: Safe techniques for w/c mobility, safe techniques for completing ADLs documented in this encounter Plan of Treatment Upcoming Encounters Date Type Department Care Team (Latest Contact Info) Description 10/23/2024 10:00 AM CABIN AGENT Hospital Encounter [facility] Operating Room [address] [place] [address] [place] [address] [address] 10/23/2024 10:00 AM CABIN AGENT - 10/23/2024 1:00 PM CABIN AGENT Surgery [facility] Operating Room [address] [place] [address] [place] [address] [address] ARTHROPLASTY TOTAL KNEE LEFT Scheduled Procedures Name Priority Associated Diagnoses Date/Ti me ARTHROPLASTY TOTAL KNEE left knee osteoarthritis 10/23/2024 10:00 AM CABIN AGENT ESOPHAGOGASTRODUODENOSCOPY Dysphagia, unspecified type documented as [...] home health visit Disciplines: SN, PT, OT, APPLICATION SECURITY DEVELOPER, WINDOWS APPLICATION DEVELOPER, Skilled Disciplines Monitor patient's vital signs every [...] visit during episode of care Description: Home electric relay tester to measure vital signs during every home [...] pain has been reduced or controlled Completed Positioning Description: Patient/caregiver education for proper positioning. Problem:OT Impaired UE Function and/or Fine Motor Skills Completed Pt now has a half lap tray to use when sitting in w/c. Instructed pt/cgs on keeping L UE supported on lap tray, sling or elevated on pillow to provide support to L UE and prevent further subluxation. Pt and cgs demonstrate good understanding. Taping Description: Instruct in use of UE taping of left UE Problem:OT Impaired UE Function and/or Fine Motor Skills Completed Applied kinesiotape to pt's L UE (shoulder and wrist) to facilitate muscle contraction, decreased edema and support of shoulder and wrist. Instructed pt and cgs to remove kinesiotape if pt's skin becomes reddened or irritated, or pt is unable to tolerate tape. Pt and cgs demonstrate good understanding. Therapeutic Exercise Description: Perform and progress therapeutic exercise. Problem:OT Impaired UE Function and/or Fine Motor Skills Completed Instructed pt and pd cg on PROM exercises (shoulder, elbow, wrist, digit flex/ext, pro/supination, shoulder ab/adduction) to increase strength and ROM in L UE Pt receives PROM exercises 10 reps X 1 Pt's pd cgs were present and demonstrate good understanding with assisting pt with PROM exercises. Transfer Training Description: Instruct patient/caregiver and perform transfer training. Problem:OT Impaired Functional Mobility/Balance Completed Instructed pt/pd cgs on proper transfer (w/c to toilet, toilet to w/c) - transferring to Right, use of RTS and armrests. Pt was able to transfer from w/c to toilet, toilet to w/c (stand step pivot) requiring CGA. ADL Instruction Description: Instruct patient/caregiver for improved ADL performance. Problem:OT Impaired ADLs Completed Instructed pd cgs to allow pt to perform tasks to full potential. Pt was able to perform clothing management during toileting, requiring SBA/supervision. documented in this encounter Care Teams Physical Therapy Assistant Instructor Relationship Specialty Start Date End Date Wolfgang Serrano MD PCP - General Family Medicine 05/05/23 08/02/24 Unknown, Notinfile 03/12/22 [place] [id number] [place] [address] 03/12/22 Chuy Enriquez MD [address] [place] [address] Consulting Physician Pulmonary Disease 10/13/23 Luis Felipe Cedillo MD [address] [facility] [address], [place] [address] Consulting Physician Gastroenterology 10/13/23 Marlene Thornton MD [address] [facility] [address], [place] [address] Surgeon Vascular Surgery 11/10/23 documented as of this encounter
--- OUTSIDE RECORDS SUMMARY | 2024-10-11 01:54 | XMS_ITS | Encounter Summary ---
Author Organization [facility] Healthcare Address [address] [place] [address] Care Team Providers Care Produce Field Merchandiser Name Role Phone Wolfgang Serrano MD Primary Care Provider Unknown, Notinfile Unavailable Unavailable Santino Funk MD Unavailable Chuy Enriquez MD Unavailable [phone] Luis Felipe Cedillo MD Unavailable [phone] Marlene Thornton MD Unavailable [phone] Reason for Referral * MRI/CAT/PET Scan (Routine) - Pending Review Specialty Diagnoses / Procedures Referred By Contac t Referred To Contact Radiology Diagnoses Nocturnal cough Lung nodule Procedures CT chest without contrast Chuy Enriquez MD [address] [facility] [address] [place] [address] Phone: tel: fax: [facility] [address] [place] [address] Referral ID Status Reason Start Date Expiration Date V isits Requested Visits Authorized [id number] Pending Review 01/24/2024 02/22/2025 1 1 Encounter Details Date Type Department Care Team (Late st Contact Info) Description 01/24/2024 9:45 AM CDT Office Visit [facility] [address] [place] [address] Chuy Enriquez MD [address] [place] [address] Nocturnal cough (Primary Dx); Lung nodule Social History Tobacco Use Types Packs/Day Years Used Date Smoking Tobacco: Former Cigarettes 1 1966 Smokeless Tobacco: Never Tobacco Cessation:Counseling Given: Not [...] has e electric, gas, oil, or water In[employer] threatened to shut off services in your [...] often do you attend chur ch or anabaptist services? More than 4 times per year [...] Recorded Patient Health Questionnaire-2 Score 0 01/06/2024 [facility] [place] of Occupat ional Health - Occupational [...] on file Legal Sex Male 3:25 PM AWNING SPREADER Gender Identity Not on file Sexual Orientation Not on file documented as of this encounter Last Filed Vital Signs Vital Sign Reading Time Taken Comments Blood Pressure - - Pulse 69 01/24/2024 10:00 AM CDT Temperature - - Respiratory Rate - - Oxygen Saturation 95% 01/24/2024 10:00 AM CDT Inhaled Oxygen Concentration - - Weight - - Height - - Body Mass Index - - documented in this encounter Progress Notes * Chuy Enriquez MD - 01/24/2024 9:45 AM CDT Images from the original note were not included. ASSESSMENT/PLAN: Nocturnal cough Related to hiatal hernia, reflux leading to [...] able 5) Stay uptodate with health maintenance/vaccinations Lung nodule RLL nodule in a patient without clear risk factors for pulmonary malignancy Recs: 1) Repeat chest CT is scheduled for January 2025 HISTORY OF PRESENT ILLNESS: Abrahan Gtz Jr. is a 78 y.o. male is referred by [facility] for evaluation of lungs Background pulmonary history 1) Minimal tobacco use. 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 Available imaging from [facility] personally reviewed Radiology reports from care everywhere reviewed and imaging requested Past Medical History: Diagnosis Date Acute gastric ulcer without hemorrhage or perforation Ulcer, gastric, acute - (Added by TW Conv) Alzheimer's dementia ([facility]) Asthma Back pain Cataract Closed fracture of left tibial plateau with delayed healing Closed fracture of right tibial plateau with delayed healing Closed nondisplaced osteochondral fracture of left patella with delayed healing Closed osteochondral fracture of patella, right, with delayed healing, subsequent encounter Clotting disorder ([facility]) ([facility]) Complex tear of medial meniscus of left knee as current injury Complex tear of medial meniscus of right knee as current injury Cramps of lower extremity Diverticulitis of colon Easy bruisability Fatigue Frequent urination Gastroesophageal reflux disease GERD Hypothyroidism Incontinence of urine Muscle weakness Osteoarthritis Osteoarthritis Peptic ulcer Peptic ulcer disease Seizures ([facility]) 1997 last seizure in 1997 SOB (shortness of breath) on exertion Subchondral insufficiency fracture of condyle of left femur ([facility]) ([facility]) Vertigo Vision changes Visual disturbance hx of double vision, corrective lenses Social History Tobacco Use Smoking Status Former Current packs/day: 0.00 Types: Cigarettes Start date: 1965 Quit date: 1966 Years since quittin.3 Smokeless Tobacco Never Social History Tobacco Use Smoking status: Former Current packs/day: 0.00 Types: Cigarettes Start date: 1965 Quit date: 1966 Years since quittin.3 Smokeless tobacco: Never Substance and Sexual Activity Drug use: Yes Types: Alcohol Sexual activity: Defer Alcohol Use: Not At Risk (12/16/2023) AUDIT-C Frequency of Alcohol Consumption: Monthly or less Average Number of Drinks: 1 or 2 Frequency of Binge Drinking: Less than monthly Family History Problem Relation Age of Onset Heart failure Other Family history of Congestive heart failure; Heart disease Other Family history of Heart disease; Osteoarthritis Other Family history of Osteoarthritis; Osteoporosis Other Family history of Osteoporosis; Heart attack Mother Heart attack Father Heart attack Sister No Known Allergies REVIEW OF SYSTEMS: General: No fevers or chills or night sweats. No anorexia or weight loss Eyes: No blurry vision or glaucoma. Ears, Nose, Throat: No hearing deficit, nasal discharge or sinus pain. Lungs: As detailed in the history of present illness. Cardiac: No chest pain or palpitations. Abdominal: No melena or hematochezia. Genitourinary: No dysuria or hematuria. Skin: No rashes or itching. Musculoskeletal: No large joint pain or swelling. Neurologic: No focal weakness reported. Psychiatric: No anxiety or agitation Heme/Lymphatic: No significant anemia Endocrine: No uncontrolled DM PHYSICAL EXAM: There were no vitals taken for this visit. General: pleasant, no acute distress Eyes: No icterus or pallor. No erythema ENT: Mallampati 2; hearing ok. No nasal discharge or sinus tenderness Chest: Symmetric expansion bilaterally. Respiratory: Clear bilaterally Cardiovascular: Reviewed rate and rhythm Gastrointestinal: soft, non-surgical abdomen Ext: No edema or cyanosis or clubbing Musculoskeletal: No large swelling or tenderness Skin: no obvious rash or bruising Psychiatric: No agitation Neurologic: awake/alert, no focal motor deficits documented in this encounter Miscellaneous Notes * Assessment & Plan Note - Chuy Enriquez MD - 01/24/2024 9:59 AM CDT Associated Problem(s): Lung nodule RLL nodule in a patient without clear risk factors for pulmonary malignancy Recs: 1) Repeat chest CT is scheduled for January 2025 * Assessment & Plan Note - Chuy Enriquez MD - 01/24/2024 9:59 AM CDT Associated Problem(s): Nocturnal cough Related to hiatal hernia, reflux leading to [...] able 5) Stay uptodate with health maintenance/vaccinations * Addendum Note - Manisha Paz MA - 01/24/2024 9:45 AM CDTAddended by: MANISHA PAZ on: 01/24/2024 10:03 AM Modules accepted: Orders documented in this encounter Plan of Treatment Upcoming Encounters Date Type Department Care Team (Latest Contact Info) Description 10/23/2024 10:00 AM AWNING SPREADER Hospital Encounter [facility] Operating Room [id number] [place] [address] [place] [address] [address] 10/23/2024 10:00 AM AWNING SPREADER - 10/23/2024 1:00 PM AWNING SPREADER Surgery [facility] Operating Room [address] [place] [address] [place] [address] [id number] ARTHROPLASTY TOTAL KNEE LEFT Scheduled Orders Name Type Priority Associated Diagnoses Orde r Schedule CT chest without contrast Imaging Schedule Routine, Read Routine (OP Routine) Nocturnal cough Lung nodule Expected: 01/24/2024, Expires: 01/23/2025 Scheduled Procedures Name Priority Associated Diagnoses Date/Ti me ARTHROPLASTY TOTAL KNEE left knee osteoarthritis 10/23/2024 10:00 AM AWNING SPREADER ESOPHAGOGASTRODUODENOSCOPY Dysphagia, unspecified type documented as of this encounter Visit Diagnoses Diagnosis Nocturnal cough- Primary Lung nodule Other diseases of lung, not elsewhere classified documented in this encounter Care Teams Produce Field Merchandiser Relationship Specialty Start Date End Date Wolfgang Serrano MD PCP - General Family Medicine 05/05/23 08/02/24 Unknown, Notinfile 03/12/22 [place] [address] [facility] [address] [place] [address] 03/12/22 Chuy Enriquez MD [address] [place] [address] Consulting Physician Pulmonary Disease 10/13/23 Luis Felipe Cedillo MD [address] [place] [address] Consulting Physician Gastroenterology 10/13/23 Marlene Thornton MD [address] [place] [address] Surgeon Vascular Surgery 11/10/23 documented as of this encounter
--- OUTSIDE RECORDS SUMMARY | 2024-10-11 01:54 | XMS_ITS | Encounter Summary ---
Author Organization [facility] Healthcare Address [address] [place] [address] Care Team Providers Care Tumbler Tender Name Role Phone Wolfgang Serrano MD Primary Care Provider Unknown, Notinfile Unavailable Unavailable Santino Funk MD Unavailable Chuy Enriquez MD Unavailable [phone] Luis Felipe Cedillo MD Unavailable Marlene Thornton MD Unavailable Reason for Visit * Auth/Cert (Routine) Specialty Diagnoses / Procedures Referred By Contac t Referred To Contact Referral ID Status Reason Start Date Expiration Date Visits Re quested Visits Authorized [id number] 1 60 Encounter Details Date Type Department Care Team (Late st Contact Info) Description 02/04/2024 11:00 AM CDT Home Care Visit [facility] [address] [address] [address] [place] [address] Bing Walker, SOFTWARE DEVELOPMENT ANALYST PT HOME VISIT Social History Tobacco [...] often do you attend chur ch or confucianist services? More than 4 times per year 12/16/2023 Do you belong to any clubs o r organizations such as moravian groups, unions, fraternal or athletic groups, or [...] Patient Health Questionnaire-2 Score 0 01/06/2024 [facility] [place] of Occupat ional Health - Occupational Stress [...] place to sleep or slept in a detention (including now)? No 12/16/2023 Personal Safety Answer Date Recorded Have you ever been in or are you currently in a harmful physical or emotional relationship or is someone making you feel afraid or unsafe? Denies 12/15/2023 Sex and Gender Information Value Date Recorded Sex Assigned at Not on file Legal Sex Male 3:25 PM DISCHARGING MACHINE OPERATOR Gender Identity Not on file Sexual Orientation Not on file documented as of this encounter Last Filed Vital Signs Vital Sign Reading Time Taken Comments Blood Pressure 122/80 02/04/2024 12:01 PM CDT Pulse 66 02/04/2024 12:01 PM CDT Temperature 36.2 ??C (97.2 ??F) 02/04/2024 12:01 PM C DT Respiratory Rate 18 02/04/2024 12:01 PM CDT Oxygen Saturation 98% 02/04/2024 12:01 PM CDT Inhaled Oxygen Concentration - - Weight - - Height - - Body Mass Index - - documented in this encounter Miscellaneous Notes * Home Health Plan for Next Visit - Bing Walker PTA - 02/04/2024 12:00 PM CDT Reason for today's visit pt seen today for continued education for safe transfers, amb, steps, HEP to improve balance, strength and endurance Discuss plan of care with pt Discharge planning discussed pts goals and progressing to OP PT when goals are met Plan for next visit continue to make safe on steps, amb, HEP documented in this encounter Plan of Treatment Upcoming Encounters Date Type Department Care Team (Latest Contact Info) Description 10/23/2024 10:00 AM DISCHARGING MACHINE OPERATOR Hospital Encounter [facility] Operating Room [address] [place] [address] [place] [address] [address] 10/23/2024 10:00 AM DISCHARGING MACHINE OPERATOR - 10/23/2024 1:00 PM DISCHARGING MACHINE OPERATOR Surgery [facility] Operating Room [address] [place] [address] [place] [address] [address] ARTHROPLASTY TOTAL KNEE LEFT Scheduled Procedures Name Priority Associated Diagnoses Date/Ti me ARTHROPLASTY TOTAL KNEE left knee osteoarthritis 10/23/2024 10:00 AM DISCHARGING MACHINE OPERATOR ESOPHAGOGASTRODUODENOSCOPY Dysphagia, unspecified type documented as [...] home health visit Disciplines: SN, PT, OT, CONTROL SYSTEMS DRAFTING OFFICER, FLAGGER, Skilled Disciplines Monitor patient's vital signs every [...] visit during episode of care Description: Home sap architect to measure vital signs during every home [...] out of the house, req assistance with ADLS. balance deficit Monitor Vital Signs Description: Monitor blood pressure, [...] training. Problem:PT Stroke/CVA Completed pt instructed on steps to enter/exit the house using the rasheed walker with min/mod assist and vc for proper cane placement and technique. pt amb 60'x3 with rasheed walker with CGA/min assist. pt req vc to stand erect and for proper rasheed walker placement Bed Mobility/Transfer Training Description: Instruct patient/caregiver and perform bed mobility/transfer training. Problem:PT Stroke/CVA Completed pt transfers form sit-stand using R hand to assist with CGA/min assist at times due to balance. Balance Training/Activities Description: Instruct patient/caregiver and perform balance training activities. Problem:PT Stroke/CVA Completed pt performed sidestepping and forward/backward amb along railing using R hand on rail for support and CGA with vc for proper technique and to stand erect Therapeutic Exercise Description: Perform therapeutic exercise, progressing as tolerated. Problem:PT Stroke/CVA Completed pt in supine performed ap,qs,slr,saq, heel slides, hip abd, bridging 15 rep. pt req min assist to perform SLR on L/L/E. in sitting pt performed laq and marching 10 reps. in standing pt performed heel raises, SL march on L, hip abd on L and mini squats 15 reps. pt is progressing with HEP and tolerated ex well documented in this encounter Care Teams Tumbler Tender Relationship Specialty Start Date End Date Wolfgang Serrano MD PCP - General Family Medicine 05/05/23 08/02/24 Unknown, Notinfile 03/12/22 [place] [address] [place] [address] 03/12/22 Chuy Enriquez MD [address] [place] [address] Consulting Physician Pulmonary Disease 10/13/23 Luis Felipe Cedillo MD [address], [place] [address] Consulting Physician Gastroenterology 10/13/23 Marlene Thornton MD [address] [place] [address] Surgeon Vascular Surgery 11/10/23 documented as of this encounter
--- OUTSIDE RECORDS SUMMARY | 2024-10-11 01:55 | XMS_ITS | Encounter Summary ---
Author Organization [facility] Healthcare Address [address] [place] [address] Care Team Providers Care Wave Guide Assembler Name Role Phone Wolfgang Serrano MD Primary Care Provider Unknown, Notinfile Unavailable Unavailable Santino Funk MD Unavailable [phone] Chuy Enriquez MD Unavailable [phone] Luis Felipe Cedillo MD Unavailable Marlene Thornton MD Unavailable [phone] Reason for Visit * Reason Comments Follow-up Pain Pain Follow-up Encounter Details Date Type Department Care Team (Latest Contact Info) Description 01/11/2024 2:00 PM CDT Office Visit [facility] Orthopedics and Sports Medicine at [place] [id number] [facility] [address] [place] [id number] Jossie Montalvo PA [address] [place] [address] Primary osteoarthritis of both knees (Primary Dx); Hx of total knee replacement, right; Cerebrovascular accident (CVA), unspecified mechanism (HCC) Social [...] doctor or pharmacy Sometimes 01/09/2024 [facility] Utilities Answer Date Recorded In the past 12 months has th e [employer], gas, oil, or water [employer] threatened to shut off services in your [...] often do you attend chur ch or temple services? More than 4 times per year [...] Recorded Patient Health Questionnaire-2 Score 0 01/06/2024 [facility] [place] of Occupat ional Health - Occupational Stress [...] on file Legal Sex Male 3:25 PM BRIM AND CROWN PRESSER Gender Identity Not on file Sexual Orientation Not on file documented as of this encounter Last Filed Vital Signs Vital Sign Reading Time Taken Comments Blood Pressure - - Pulse - - Temperature - - Respiratory Rate - - Oxygen Saturation - - Inhaled Oxygen Concentration - - Weight - - Height 177.8 cm (5' 10 ) 01/11/2024 1:58 PM CDT Body Mass Index - - documented in this encounter Progress Notes * Jossie Montalvo PA - 01/11/2024 2:00 PM CDT Images from the original note were not included. FOLLOW UP VISIT Subjective CHIEF COMPLAINT He had concerns including Follow-up and Pain of the Left Knee and Pain and Follow-up of the Right Knee. HISTORY OF PRESENT ILLINESS This is a follow-up visit for bilateral knee pain. Patient is 2 years postop right knee replacement, overall is doing well and had anticipated potentially scheduling left knee replacement in the nearfuture. Unfortunately he suffered a stroke affecting the left side of his body which has impaired speech, as hemiplegia affecting the left upper extremity primarily with some weakness also in the left leg. He was seen in rehab 2 weeks ago and had injection of the left knee which he states was helpful. His primary reason for visit today as he has an ill-fitting sling on the left arm, as he has no active function of the arm he needs better support there. Additionally he had like a brace for his left leg as the leg is weak and needs some stability with weight-bearing activities. He states the injection given 2 weeks ago was helpful for his pain. The only blood thinner I see on his med list is baby aspirin. MEDICATIONS He has a current medication list which includes the following prescription(s): advair hfa, albuterol hfa, aspirin, capsaicin, cetirizine, cholecalciferol, clobetasol, cyanocobalamin, donepezil, flovent hfa, gabapentin, levothyroxine, lidocaine, magnesium oxide/magnesium, melatonin, multivit-min/ferrous fumarate, oxybutynin xl, pantoprazole dr, rosuvastatin, senna-docusate, tamsulosin, tizanidine,and turmeric root extract. ALLERGIES He has no known allergies. Review of Systems Constitutional: Negative for diaphoresis [...] Negative for dysuria and flank pain. Musculoskeletal: Negative for gait problem and neck pain. Skin: Negative for color change and rash. Allergic/Immunologic: Negative for immunocompromised state. Neurological: Positive for speech difficulty and weakness. Negative for dizziness. Hematological: Negative for adenopathy. Psychiatric/Behavioral: Negative for decreased concentration and hallucinations. PHYSICAL EXAM Exam of the left knee demonstrates 1+ [...] a well-healed incision. No joint effusion. He is full extension with flexion furtherto 120??. No laxity with varus or valgus testing. He has a good quad set with no weakness. 2+ DP and PT pulses. Left upper extremity is in a sling, he has no motor function there but does appear to have intact sensation. He has not able to wiggle his fingers or actively move at the elbow. Passively I can squeeze his hand down to his fingertips touching his palm and extend them fully at the MCP joint. Elbow mo tion passively is 15-100 degrees. Shoulder motion is not assessed. 2+ radial pulse. REVIEW OF X-RAYS/STUDIES/LABS (IF ORDERED) XR Knee Bilateral 1 or 2 Views BilateralKnees two views demonstrates presence of a right total knee arthroplasty which is well positioned with no loosening or wear. Left knee has advanced varus arthritis with [id number] contact in the posteromedial aspect. Assessment/Plan Abrahan was seen today for follow-up, pain, pain and follow-up. Diagnoses and all orders for this visit: Primary osteoarthritis of both knees - XR Knee Bilateral 1 or 2 Views Hx of total knee replacement, right Cerebrovascular accident (CVA), unspecified mechanism (HCC) Plan Patient is seen in follow-up of his knee pain, status post right knee replacement 2 years ago and osteoarthritis of the left knee. He has had a stroke about 6 weeks ago and has left-sided hemiplegia primarily affecting left upper extremity. -knee replacement surgery is delayed indefinitely due to the recent stroke -he will have a three-month follow-up for another potential injection left knee -he is home therapy starting this week, he was given a hinged knee brace as well as fitted with a better sling to help support the left arm -follow-up here will be in 3 months Pertinent exam, laboratory and imaging findings were discussed. All questions were all addressed during the office visit. Treatment plan was explained in detail and the patient voiced understanding. Follow up appointment scheduled as discussed, they may call the office with any additional concerns as needed. LORI Craig documented in this encounter Plan of Treatment Upcoming Encounters Date Type Department Care Team (Latest Contact Info) Description 10/23/2024 10:00 AM BRIM AND CROWN PRESSER Hospital Encounter [facility] Operating Room [id number] [place] [address] [place] [address] [address] 10/23/2024 10:00 AM BRIM AND CROWN PRESSER - 10/23/2024 1:00 PM BRIM AND CROWN PRESSER Surgery [facility] Operating Room [address] [place] [address] [place] [address] [address] ARTHROPLASTY TOTAL KNEE LEFT Scheduled Procedures Name Priority Associated Diagnoses Date/Ti me ARTHROPLASTY TOTAL KNEE left knee osteoarthritis 10/23/2024 10:00 AM BRIM AND CROWN PRESSER ESOPHAGOGASTRODUODENOSCOPY Dysphagia, unspecified type documented as of this encounter Procedures Procedure Name Priority Date/Time Associated Diagnosis Comments XR KNEE BILATERAL 1 OR 2 VIEWS Schedule Routine, Read Routine (OP Routine) 01/11/2024 3:28 PM CDT Primary osteoarthritis of both knees documented in this encounter Results * XR Knee Bilateral 1 or 2 Views (01/11/2024 3:28 PM CDT) Anatomical Region Laterality Modality Lower Extremities, Knee Bilateral Computed Radiography Narrative 01/11/2024 3:28 PM CDT BilateralKnees two views demonstrates presence of a right total knee arthroplasty which is well positioned with no loosening or wear. ??Left knee has advanced varus arthritis with ohsq-rq-ctpf contact in the posteromedial aspect. ?? us Jossie SANDOVAL IMG XR PROCEDURES Final Resul t documented in this encounter Visit Diagnoses Diagnosis Primary osteoarthritis of both knees- Primary Hx of total knee replacement, right Cerebrovascular accident (CVA), unspecified mechanism (HCC) documented in this encounter Care Teams Wave Guide Assembler Relationship Specialty Start Date End Date Wolfgang Serrano MD PCP - General Family Medicine 05/05/23 08/02/24 Unknown, Notinfile 03/12/22 [place] [address] [place] [address] 03/12/22 Chuy Enriquez MD [address] [place] [address] Consulting Physician Pulmonary Disease 10/13/23 Luis Felipe Cedillo MD [address] [place] [address] Consulting Physician Gastroenterology 10/13/23 Marlene Thornton MD [address] [place] [address] Surgeon Vascular Surgery 11/10/23 documented as of this encounter
--- OUTSIDE RECORDS SUMMARY | 2024-10-11 01:55 | XMS_ITS | Encounter Summary ---
Author Organization [facility] Healthcare Address [address] [place] [address] Care Team Providers Care Fruit Grading Supervisor Name Role Phone Wolfgang Serrano MD Primary Care Provider [phone] Unknown, Notinfile Unavailable Unavailable Santino Funk MD Unavailable Chuy Enriquez MD Unavailable [phone] Luis Felipe Cedillo MD Unavailable [phone] Marlene Thornton MD Unavailable Reason for Visit * Auth/Cert (Routine) Specialty Diagnoses / Procedures Referred By Contac t Referred To Contact Referral ID Status Reason Start Date Expiration Date Visits Re quested Visits Authorized [id number] 1 60 Encounter Details Date Type Department Care Team (Late st Contact Info) Description 01/09/2024 Home Care Visit [facility] [address] [place] [address] Aravind Duran PT CASE COMMUNICATION Social History Tobacco Use Types Packs/Day Years Used Date Smoking Tobacco: Former Cigarettes 1 6 1966 Smokeless Tobacco: Never Alcohol Use Standard [...] any clubs o r organizations such as protestant groups, unions, fraternal or athletic groups, or [...] Recorded Patient Health Questionnaire-2 Score 0 01/06/2024 [facility] [place] of Occupat ional Health - Occupational [...] on file Legal Sex Male 3:25 PM BIOINFORMATICS PROGRAMMER Gender Identity Not on file Sexual Orientation Not on file documented as of this encounter Plan of Treatment Upcoming Encounters Date Type Department Care Team (Latest Contact Info) Description 10/23/2024 10:00 AM BIOINFORMATICS PROGRAMMER Hospital Encounter [facility] Operating Room [address] [place] [address] [place] [address] [id number] 10/23/2024 10:00 AM BIOINFORMATICS PROGRAMMER - 10/23/2024 1:00 PM BIOINFORMATICS PROGRAMMER Surgery [facility] Operating Room [address] [place] [address] [place] [address] [address] ARTHROPLASTY TOTAL KNEE LEFT Scheduled Procedures Name Priority Associated Diagnoses Date/Ti me ARTHROPLASTY TOTAL KNEE left knee osteoarthritis 10/23/2024 10:00 AM BIOINFORMATICS PROGRAMMER ESOPHAGOGASTRODUODENOSCOPY Dysphagia, unspecified type documented as of this encounter Visit Diagnoses Not on filedocumented in this encounter Care Teams Fruit Grading Supervisor Relationship Specialty Start Date End Date Wolfgang Serrano MD PCP - General Family Medicine 05/05/23 08/02/24 Unknown, Notinfile 03/12/22 [place] [address] [place] [address] 03/12/22 Chuy Enriquez MD [address] [place] [address] Consulting Physician Pulmonary Disease 10/13/23 Luis Felipe Cedillo MD [address] [place] [address] Consulting Physician Gastroenterology 10/13/23 Marlene Thornton MD [address] [place] [address] Surgeon Vascular Surgery 11/10/23 documented as of this encounter
--- OUTSIDE RECORDS SUMMARY | 2024-10-11 01:55 | XMS_ITS | Encounter Summary ---
Author Organization [facility] Healthcare Address [address] [place] [address] Care Team Providers Care Stationary Equipment Mechanic Name Role Phone Wolfgang Serrano MD Primary Care Provider [phone] Unknown, Notinfile Unavailable Unavailable Santino Funk MD Unavailable Chuy Enriquez MD Unavailable Luis Felipe Cedillo MD Unavailable [phone] Marlene Thornton MD Unavailable Reason for Visit * Auth/Cert (Routine) Specialty Diagnoses / Procedures Referred By Contac t Referred To Contact Referral ID Status Reason Start Date Expiration Date Visits Re quested Visits Authorized [id number] 1 60 Encounter Details Date Type Department Care Team (Latest Contact Info) Description 01/14/2024 12:00 PM CDT Home Care Visit [facility] [place] [address] [address] [place] [address] Anjelica Agrawal, TROLLEY WIRE INSTALLER TROLLEY WIRE INSTALLER INITIAL EVALUATION Social History Tobacco Use Types Packs/Day Years [...] materials from doctor or pharmacy Sometimes 01/09/2024 [facility] Utilities Answer Date Recorded In the past 12 months has e [employer], gas, oil, or water company threatened to [...] any clubs o r organizations such as sabianism groups, unions, fraternal or athletic groups, or [...] Recorded Patient Health Questionnaire-2 Score 0 01/06/2024 [facility] [place] of Occupat ional Health - Occupational Stress [...] on file Legal Sex Male 3:25 PM SUCTION WORKER Gender Identity Not on file Sexual Orientation Not on file documented as of this encounter Last Filed Vital Signs Vital Sign Reading Time Taken Comments Blood Pressure 136/80 01/14/2024 12:38 PM CDT Pulse 64 01/14/2024 12:38 PM CDT Temperature 36.6 ??C (97.8 ??F) 01/14/2024 12:38 PM C DT Respiratory Rate 18 01/14/2024 12:38 PM CDT Oxygen Saturation 98% 01/14/2024 12:38 PM CDT Inhaled Oxygen Concentration - - Weight - - Height - - Body Mass Index - - documented in this encounter Miscellaneous Notes * Home Health Plan for Next Visit - Anjelica Winter SLP - 01/14/2024 12:21 PM CDT Reason for today's visit: initial TROLLEY WIRE INSTALLER evaluation Discuss plan of care with patient and patient caregiver. Discharge planning: DC when goals are met or max potential is reached Plan for next visit: therex, education, HEP development documented in this encounter Plan of Treatment Upcoming Encounters Date Type Department Care Team (Latest Contact Info) Description 10/23/2024 10:00 AM SUCTION WORKER Hospital Encounter [facility] Operating Room [address] [place] [address] [place] [address] [address] 10/23/2024 10:00 AM SUCTION WORKER - 10/23/2024 1:00 PM SUCTION WORKER Surgery [facility] Operating Room [address] [place] [address] [place] [address] [address] ARTHROPLASTY TOTAL KNEE LEFT Scheduled Procedures Name Priority Associated Diagnoses Date/Ti me ARTHROPLASTY TOTAL KNEE left knee osteoarthritis 10/23/2024 10:00 AM SUCTION WORKER ESOPHAGOGASTRODUODENOSCOPY Dysphagia, unspecified type documented as of this encounter Visit Diagnoses Not on filedocumented in this encounter Home Health Visit - Care Plan Visit Details Visit Type -TROLLEY WIRE INSTALLER Initial Eval uation Discipline -Speech Language Pathology Problems Problem Description Start Date Status Goals Interventions Homebound Status Disciplines: Skilled Disciplines Patient's homebound status 01/09/2024 Active 1 goal linked to scheduled/docume nted intervention 1 goal intervention scheduled/documen ana in this visit Monitor patient's vital signs every home health visit Disciplines: SN, PT, OT, TROLLEY WIRE INSTALLER, SENIOR TALENT ACQUISITION SPECIALIST, Skilled Disciplines Monitor patient's vital signs [...] goal interventions scheduled/documen ana in this visit Instruct/evalua [...] visit during episode of care Description: Home senior clinician to measure vital signs during every [...] Management Goal:Demonstrate knowledge of anticoagulant therapy Completed Assess cognitive status Description: Assess and/or reassess cognitive status. Problem:Instruct/melinda petit cognitive function Completed Patient is a 78 year old female with recent admission to home care following hospitalization for CVA, pmhx includes seizure, asthma, GERD, HLD, hypothyroidism, AAA. Patient lives with his , his daughter is in town from [place] for a few days. Patient currently requires assistance with all ADLs, is independent with medication and corporate statistical financial analyst. 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 Currently patient enjoys watching TV, especially sports. documented in this encounter Care Teams Stationary Equipment Mechanic Relationship Specialty Start Date End Date Wolfgang Serrano MD PCP - General Family Medicine 05/05/23 08/02/24 Unknown, Notinfile 03/12/22 [place] [address] [address] 03/12/22 Chuy Enriquez MD [address] [facility] [address] [place] [address] Consulting Physician Pulmonary Disease 10/13/23 Luis Felipe Cedillo MD [address] [facility] [address] [address] Consulting Physician Gastroenterology 10/13/23 Marlene Thornton MD [address] [facility] [address] [address] Surgeon Vascular Surgery 11/10/23 documented as of this encounter
--- OUTSIDE RECORDS SUMMARY | 2024-10-11 01:55 | XMS_ITS | Encounter Summary ---
Author Organization [facility] Healthcare Address [address] [place] [address] Care Team Providers Care Print Press Operator Name Role Phone Wolfgang Serrano MD Primary Care Provider Unknown, Notinfile Unavailable Unavailable Santino Funk MD Unavailable Chuy Enriquez MD Unavailable [phone] Luis Felipe Cedillo MD Unavailable Marlene Thornton MD Unavailable Reason for Visit * Auth/Cert (Routine) Specialty Diagnoses / Procedures Referred By Contac t Referred To Contact Referral ID Status Reason Start Date Expiration Date Visits Re quested Visits Authorized [id number] 1 60 Encounter Details Date Type Department Care Team (Late st Contact Info) Description 01/11/2024 Home Care Visit [facility] [address] [place] [address] João Gardner, COAL TOWER OPERATOR CASE COMMUNICATION Social History Tobacco Use Types [...] from doctor or pharmacy Sometimes 01/09/2024 [facility] Utilities Answer Date Recorded In the [...] often do you attend chur ch or catholic services? More than 4 times per [...] Recorded Patient Health Questionnaire-2 Score 0 01/06/2024 [facility] [place] of Occupat ional Health - Occupational Stress [...] on file Legal Sex Male 3:25 PM RISK TECH Gender Identity Not on file Sexual Orientation Not on file documented as of this encounter Plan of Treatment Upcoming Encounters Date Type Department Care Team (Latest Contact Info) Description 10/23/2024 10:00 AM RISK TECH Hospital Encounter [facility] Operating Room [address] [place] [address] [place] [address] [address] [address] 10/23/2024 10:00 AM RISK TECH - 10/23/2024 1:00 PM RISK TECH Surgery [facility] Operating Room [address] [place] [address] [place] [address] [address] ARTHROPLASTY TOTAL KNEE LEFT Scheduled Procedures Name Priority Associated Diagnoses Date/Ti me ARTHROPLASTY TOTAL KNEE left knee osteoarthritis 10/23/2024 10:00 AM RISK TECH ESOPHAGOGASTRODUODENOSCOPY Dysphagia, unspecified type documented as of this encounter Visit Diagnoses Not on filedocumented in this encounter Care Teams Print Press Operator Relationship Specialty Start Date End Date Wolfgang Serrano MD PCP - General Family Medicine 05/05/23 08/02/24 Unknown, Notinfile 03/12/22 [place] [address] [address] [facility] [address] [place] [address] 03/12/22 Chuy Enriquez MD [address] [facility] [address] [place] [address] Consulting Physician Pulmonary Disease 10/13/23 Luis Felipe Cedillo MD [address] [facility] [address] [place] [address] Consulting Physician Gastroenterology 10/13/23 Marlene Thornton MD [address] [facility] [address], [place] [address] Surgeon Vascular Surgery 11/10/23 documented as of this encounter
--- OUTSIDE RECORDS SUMMARY | 2024-10-11 01:55 | XMS_ITS | Encounter Summary ---
Author Organization [facility] Healthcare Address [address] [place] [address] Care Team Providers Care Metal Furniture Panel Coverer Name Role Phone Wolfgang Serrano MD Primary Care Provider [phone] Unknown, Notinfile Unavailable Unavailable Santino Funk MD Unavailable [phone] Chuy Enriquez MD Unavailable Luis Felipe Cedillo MD Unavailable [phone] Marlene Thornton MD Unavailable [phone] Reason for Visit * Auth/Cert (Routine) Specialty Diagnoses / Procedures Referred By Contac t Referred To Contact Referral ID Status Reason Start Date Expiration Date Visits Re quested Visits Authorized [id number] 1 60 Encounter Details Date Type Department Care Team (Late st Contact Info) Description 01/12/2024 Home Care Visit [facility] [address] [place] [address] Arlette Briones, MARAH TELEPHONE ENCOUNTER Social History Tobacco Use Types [...] from doctor or pharmacy Sometimes 01/09/2024 [facility] Utilities Answer Date Recorded In the [...] any clubs o r organizations such as spiritism groups, unions, fraternal or athletic groups, or [...] Recorded Patient Health Questionnaire-2 Score 0 01/06/2024 [facility] [place] of Occupat ional Health - Occupational Stress [...] on file Legal Sex Male 3:25 PM CITY ROUTEMAN Gender Identity Not on file Sexual Orientation Not on file documented as of this encounter Plan of Treatment Upcoming Encounters Date Type Department Care Team (Latest Contact Info) Description 10/23/2024 10:00 AM CITY ROUTEMAN Hospital Encounter [facility] Operating Room [address] [place] [address] [place] [address] [address] [id number] 10/23/2024 10:00 AM CITY ROUTEMAN - 10/23/2024 1:00 PM CITY ROUTEMAN Surgery [facility] Operating Room [address] [place] [address] [place] [address] [address] ARTHROPLASTY TOTAL KNEE LEFT Scheduled Procedures Name Priority Associated Diagnoses Date/Ti me ARTHROPLASTY TOTAL KNEE left knee osteoarthritis 10/23/2024 10:00 AM CITY ROUTEMAN ESOPHAGOGASTRODUODENOSCOPY Dysphagia, unspecified type documented as of this encounter Visit Diagnoses Not on filedocumented in this encounter Care Teams Metal Furniture Panel Coverer Relationship Specialty Start Date End Date Wolfgang Serrano MD PCP - General Family Medicine 05/05/23 08/02/24 Unknown, Notinfile 03/12/22 [place] [address] [place] [address] 03/12/22 Chuy Enriquez MD [address] [place] [address] Consulting Physician Pulmonary Disease 10/13/23 Luis Felipe Cedillo MD [address] [place] [address] Consulting Physician Gastroenterology 10/13/23 Marlene Thornton MD [address] [place] [address] Surgeon Vascular Surgery 11/10/23 documented as of this encounter
--- OUTSIDE RECORDS SUMMARY | 2024-10-11 01:55 | XMS_ITS | Encounter Summary ---
Author Organization [facility] Healthcare Address [address] [place] [address] Care Team Providers Care Parks And Recreation Worker Name Role Phone Wolfgang Serrano MD Primary Care Provider Unknown, Notinfile Unavailable Unavailable Santino Funk MD Unavailable Chuy Enriquez MD Unavailable Luis Felipe Cedillo MD Unavailable Marlene Thornton MD Unavailable [phone] Encounter Details Date Type Department Care Team (Late st Contact Info) Description 01/11/2024 Telephone [facility] Scheduling [address] [place] [address] Dorita Gonzalez Social History Tobacco Use Types Packs/Day Years [...] materials from doctor or pharmacy Sometimes 01/09/2024 [facility] Utilities Answer Date Recorded In the [...] often do you attend chur ch or pentecostalism services? More than 4 times per year [...] Recorded Patient Health Questionnaire-2 Score 0 01/06/2024 [facility] of Occupat ional Health - Occupational Stress [...] on file Legal Sex Male 3:25 PM FINISHER HAND Gender Identity Not on file Sexual Orientation Not on file documented as of this encounter Miscellaneous Notes * Telephone Encounter - Dorita Gonzalez - 01/11/2024 10:31 AM CDT Left a voicemail for pt stating that Iwas returning his call. I left my phone number to call back with questions about scheduling. documented in this encounter Plan of Treatment Upcoming Encounters Date Type Department Care Team (Latest Contact Info) Description 10/23/2024 10:00 AM FINISHER HAND Hospital Encounter [facility] Operating Room [address] [place] [address] [place] [address] [place] [address] 10/23/2024 10:00 AM FINISHER HAND - 10/23/2024 1:00 PM FINISHER HAND Surgery [facility] Operating Room [address] [place] [address] [place] [address] [facility] [address] [place], [place] [id number] ARTHROPLASTY TOTAL KNEE LEFT Scheduled Procedures Name Priority Associated Diagnoses Date/Ti me ARTHROPLASTY TOTAL KNEE left knee osteoarthritis 10/23/2024 10:00 AM FINISHER HAND ESOPHAGOGASTRODUODENOSCOPY Dysphagia, unspecified type documented as of this encounter Visit Diagnoses Not on filedocumented in this encounter Care Teams Parks And Recreation Worker Relationship Specialty Start Date End Date Wolfgang Serrano MD PCP - General Family Medicine 05/05/23 08/02/24 Unknown, Notinfile 03/12/22 [place] [address] [facility] [address] [place] [address] 03/12/22 Chuy Enriquez MD [address] [facility] [address] [place] [address] Consulting Physician Pulmonary Disease 10/13/23 Luis Felipe Cedillo MD [address] [facility] [address] [place] [address] Consulting Physician Gastroenterology 10/13/23 Marlene Thornton MD [address] [facility] [address], [place] [address] Surgeon Vascular Surgery 11/10/23 documented as of this encounter
--- OUTSIDE RECORDS SUMMARY | 2024-10-11 01:55 | XMS_ITS | Encounter Summary ---
Author Organization [facility] Healthcare Address [address] [place] [address] Care Team Providers Care Waxer Tender Name Role Phone Wolfgang Serrano MD Primary Care Provider Unknown, Notinfile Unavailable Unavailable Santino Funk MD Unavailable Chuy Enriquez MD Unavailable Luis Felipe Cedillo MD Unavailable Marlene Thornton MD Unavailable Reason for Visit * Auth/Cert (Routine) Specialty Diagnoses / Procedures Referred By Contac t Referred To Contact Referral ID Status Reason Start Date Expiration Date Visits Re quested Visits Authorized [id number] 1 60 Encounter Details Date Type Department Care Team (Late st Contact Info) Description 01/18/2024 1:00 PM CDT Home Care Visit [facility] [place] [address] [address] [place] [address] Sarah Paulino COTA OT HOME [...] from doctor or pharmacy Sometimes 01/09/2024 [facility] Utilities Answer Date Recorded In [...] Recorded Patient Health Questionnaire-2 Score 0 01/06/2024 [facility] of Occupat ional Health - Occupational Stress [...] on file Legal Sex Male 3:25 PM PROBATE CLERK Gender Identity Not on file Sexual Orientation Not on file documented as of this encounter Last Filed Vital Signs Vital Sign Reading Time Taken Comments Blood Pressure 118/74 01/18/2024 12:54 PM CDT Pulse 71 01/18/2024 12:54 PM CDT Temperature 37.1 ??C (98.8 ??F) 01/18/2024 12:54 PM C DT Respiratory Rate 18 01/18/2024 12:54 PM CDT Oxygen Saturation 96% 01/18/2024 12:54 PM CDT Inhaled Oxygen Concentration - - Weight - - Height - - Body Mass Index - - documented in this encounter Miscellaneous Notes * Home Health Plan for Next Visit - Sarah Paulino COTA - 01/18/2024 12:44 PM CDT Reason for today's visit: PROM/SROM exercises, safe techniques for transfers, positioning of L UE Discussed plan of care with pt and pt in agreement with POC Discharge planning: home with pd cg and spouse assistance Plan for next visit: Safe techniques for completing ADLs, f/u re: placement of bedrail documented in this encounter Plan of Treatment Upcoming Encounters Date Type Department Care Team (Latest Contact Info) Description 10/23/2024 10:00 AM PROBATE CLERK Hospital Encounter [facility] Operating Room [address] [place] [address] [place] [address] [address] 10/23/2024 10:00 AM PROBATE CLERK - 10/23/2024 1:00 PM PROBATE CLERK Surgery [facility] Operating Room [address] [place] [address] [place] [address] [address] ARTHROPLASTY TOTAL KNEE LEFT Scheduled Procedures Name Priority Associated Diagnoses Date/Ti me ARTHROPLASTY TOTAL KNEE left knee osteoarthritis 10/23/2024 10:00 AM PROBATE CLERK ESOPHAGOGASTRODUODENOSCOPY Dysphagia, unspecified type documented as [...] home health visit Disciplines: SN, PT, OT, SURVEYING CREW RODMAN, [place], Skilled Disciplines Monitor patient's vital signs every [...] visit during episode of care Description: Home slitter creaser slotter operator to measure vital signs during every [...] decreased mobility, requiring assistance to complete ADLs, falls risk. Monitor Vital Signs Description: Monitor blood [...] Fine Motor Skills Completed Instructed pt on removing sling when sitting and laying and use of pillows for support of L UE. Instructed pt to utilize sling when up ambulating, transferring or performing ADLs/IADLs in standing. Pt demonstrates good understanding. Therapeutic Exercise Description: Perform and progress therapeutic exercise. Problem:OT Impaired UE Function and/or Fine Motor Skills Completed Instructed pt on SROM exercise (shoulder, elbow, wrist, digit flex/ext, pro/supination) to increase strength and ROM in L UE Pt was able to perform SROM exercises 5 reps X 1 Instructed pt on PROM exercises (shoulder, elbow, wrist, digit flex/ext, pro/supination, shoulder ab/adduction) to increase strength and ROM in L UE Pt receives PROM exercises 10 reps X 1 Instructed pt to have spouse assist with PROM exercises. Pt reports spouse was trained when he was in inpatient rehab. Assistive Devices/DME Description: Recommend and assist with obtaining assistive devices/DME. Problem:OT Impaired Functional Mobility/Balance Completed Instructed pt on proper use of shower chair and assisted pt with adjusting shower chair to increase height/ease with transferring from shower chair. Pt was able to transfer from shower chair with SBA/supervision. Instructed on use of grab bars in walk-in shower and instructed on proper placement of grab bars. Pt reports he will have his fruit canner look at it. Instructed on having son-in-law adjust bedrail in order for pt to be able to transfer in/out of bed with more ease. Pt reports he will have his son-in-law adjust bedrail. documented in this encounter Care Teams Waxer Tender Relationship Specialty Start Date End Date Wolfgang Serrano MD PCP - General Family Medicine 05/05/23 08/02/24 Unknown, Notinfile 03/12/22 [place] [address] [facility] [address] [place] [address] 03/12/22 Chuy Enriquez MD [address] [facility] [address] [place] [address] Consulting Physician Pulmonary Disease 10/13/23 Luis Felipe Cedillo MD [address] [facility] [address] [place] [address] Consulting Physician Gastroenterology 10/13/23 Marlene Thornton MD [address] [facility] [address] [place] [address] Surgeon Vascular Surgery 11/10/23 documented as of this encounter
--- OUTSIDE RECORDS SUMMARY | 2024-10-11 01:55 | XMS_ITS | Encounter Summary ---
Author Organization [facility] Healthcare Address [address] [place] [address] Care Team Providers Care Education Director Name Role Phone Wolfgang Serrano MD Primary Care Provider [phone] Unknown, Notinfile Unavailable Unavailable Santino Funk MD Unavailable Chuy Enriquez MD Unavailable Luis Felipe Cedillo MD Unavailable Marlene Thornton MD Unavailable [phone] Reason for Visit * Auth/Cert (Routine) Specialty Diagnoses / Procedures Referred By Contac t Referred To Contact Referral ID Status Reason Start Date Expiration Date Visits Re quested Visits Authorized [id number] 1 60 Encounter Details Date Type Department Care Team (Late st Contact Info) Description 01/18/2024 Home Care Visit [facility] [address] [place] [address] Kavya Basurto, OT TELEPHONE ENCOUNTER Social History [...] from doctor or pharmacy Sometimes 01/09/2024 [facility] Utilities Answer Date Recorded In the past [...] often do you attend chur ch or sikh services? More than 4 times per year 12/16/2023 Do you belong to any clubs o r organizations such as cheondoism groups, unions, fraternal or athletic groups, or [...] Patient Health Questionnaire-2 Score 0 01/06/2024 [facility] of Occupat ional Health - Occupational Stress [...] on file Legal Sex Male 3:25 PM CIGAR HEAD HOLER Gender Identity Not on file Sexual Orientation Not on file documented as of this encounter Plan of Treatment Upcoming Encounters Date Type Department Care Team (Latest Contact Info) Description 10/23/2024 10:00 AM CIGAR HEAD HOLER Hospital Encounter [facility] Operating Room [address] [place] [address] [place] [address] [address] [address] 10/23/2024 10:00 AM CIGAR HEAD HOLER - 10/23/2024 1:00 PM CIGAR HEAD HOLER Surgery [facility] Operating Room [address] [place] [address] [place] [address] [address] ARTHROPLASTY TOTAL KNEE LEFT Scheduled Procedures Name Priority Associated Diagnoses Date/Ti me ARTHROPLASTY TOTAL KNEE left knee osteoarthritis 10/23/2024 10:00 AM CIGAR HEAD HOLER ESOPHAGOGASTRODUODENOSCOPY Dysphagia, unspecified type documented as of this encounter Visit Diagnoses Not on filedocumented in this encounter Care Teams Education Director Relationship Specialty Start Date End Date Wolfgang Serrano MD PCP - General Family Medicine 05/05/23 08/02/24 Unknown, Notinfile 03/12/22 [place] [address] [facility]1] [address] [place] [address] 03/12/22 Chuy Enriquez MD [address] [facility] [address] [place] [address] Consulting Physician Pulmonary Disease 10/13/23 Luis Felipe Cedillo MD [address] [facility] [address] [place] [address] Consulting Physician Gastroenterology 10/13/23 Marlene Thornton MD [address] [facility] [address], [place] [address] Surgeon Vascular Surgery 11/10/23 documented as of this encounter
--- OUTSIDE RECORDS SUMMARY | 2024-10-11 01:55 | XMS_ITS | Encounter Summary ---
Author Organization [facility] Healthcare Address [address] [place] [address] Care Team Providers Care Polarity Tester Name Role Phone Wolfgang Serrano MD Primary Care Provider [phone] Unknown, Notinfile Unavailable Unavailable Santino Funk MD Unavailable [phone] Chuy Enriquez MD Unavailable [phone] Luis Felipe Cedillo MD Unavailable [phone] Marlene Thornton MD Unavailable Reason for Referral * MRI/CAT/PET Scan (Routine) - Closed Specialty Diagnoses / Procedures Referred By Contac t Referred To Contact Radiology Diagnoses Lung nodule Procedures CT chest without contrast Chuy Enriquez MD [address] [facility] [address] [place] [address] Phone: tel: fax: [facility] [address] [place] [address] Referral ID Status Reason Start Date Expiration Date Visits Re quested Visits Authorized [id number] Closed 01/18/2024 02/17/2024 1 1 Reason for Visit * MRI/CAT/PET Scan (Routine) - Closed Specialty Diagnoses / Procedures Referred By Dillan t Referred To Contact Radiology Diagnoses Lung nodule Procedures CT chest without contrast Chuy Enriquez MD [address] [place] [address] Phone: tel: fax: [facility] [address] [place] [address] Referral ID Status Reason Start Date Expiration Date Visits Re quested Visits Authorized [id number] Closed 01/18/2024 02/17/2024 1 1 Encounter Details Date Type Department Care Team (Latest Contact Info) Description 01/18/2024 9:21 AM CDT - 01/18/2024 11:59 PM CDT Hospital Encounter [facility] [address] [place] [address] Lung nodule Discharge Disposition: Discharge to home or self [...] materials from doctor or pharmacy Sometimes 01/09/2024 [facility] Utilities Answer Date Recorded In the past 12 months has th e [employer], gas, oil, or water [employer] threatened to shut off services in your [...] week 12/16/2023 How often do you attend [facility] or tenriism services? More than 4 times [...] Recorded Patient Health Questionnaire-2 Score 0 01/06/2024 [facility] of Occupat ional Health - Occupational [...] on file Legal Sex Male 3:25 PM STEEL DETAILER Gender Identity Not on file Sexual Orientation [...] by mouth daily 90 tablet 01/07/2024 06/14/20 documented as of this encounter Discharge Disposition Disposition Code Departure Means Destination Discharge to home or self care documented in this encounter Plan of Treatment Upcoming Encounters Date Type Department Care Team (Latest Contact Info) Description 10/23/2024 10:00 AM STEEL DETAILER Hospital Encounter [facility] Operating Room [address] [place] [address] [place] [address] [id number] 10/23/2024 10:00 AM STEEL DETAILER - 10/23/2024 1:00 PM STEEL DETAILER Surgery [facility] Operating Room [address] [place] [address] [place] [address] [facility] [address] [place], [place] [id number] ARTHROPLASTY TOTAL KNEE LEFT Scheduled Procedures Name Priority Associated Diagnoses Date/Ti me ARTHROPLASTY TOTAL KNEE left knee osteoarthritis 10/23/2024 10:00 AM STEEL DETAILER ESOPHAGOGASTRODUODENOSCOPY Dysphagia, unspecified type documented as of this encounter Procedures Procedure Name Priority Date/Time Associated Diagnosis Comments CT CHEST WO CONTRAST Schedule Routine, Read Routine (OP Routine) 01/18/2024 9:50 AM CDT Lung nodule documented in this encounter Results * CT chest without contrast (01/18/2024 9:50 AM CDT) Anatomical Region Laterality Modality Body N/A Computed Tomogra phy 01/18/2024 11:4 5 AM CDT Impressions 01/18/2024 11:45 AM CDT 1. ??No significant change in right lower lobe 8 mm pulmonary nodule. May consider PET/CT for further evaluation. 2. ??Dilated fluid-filled esophagus suggestive of gastroesophageal reflux. Electronically signed by: Jhonny Smallwood II, D.O. Narrative 01/18/2024 11:45 AM CDT EXAMINATION: ??Computed tomography of the chest without intravenous contrast HISTORY: Pulmonary nodule. TECHNIQUE: ??Transaxial computed tomographic images of the chest were obtained without intravenous contrast according to the standard protocol. COMPARISON: Multiple priors most recent dated 10/11/2023. FINDINGS: ?? No significant change in the right lower lobe 8 mm pulmonary nodule, table position -584.8. ??No new nodules. ??No pleural effusion. Thyroidectomy. ??No mediastinal or hilar lymphadenopathy. Postprocedural changes in the mediastinum. ??The esophagus is dilated, there is a small hiatal hernia, and a large amount of fluid noted within the esophagus suggestive of gastroesophageal reflux. ??Simple cyst in the right hepatic lobe. ??Upper abdominal structures are unremarkable as seen. ??No acute osseous abnormality. Procedure Note Jhonny Smallwood II, DO - 01/18/2024 EXAMINATION: Computed tomography of the chest without [...] unremarkable as seen. No acute osseous abnormality. IMPRESSION: 1. No significant change in right lower lobe 8 mm pulmonary nodule. May consider PET/CT for further evaluation. 2. Dilated fluid-filled esophagus suggestive of gastroesophageal reflux. Electronically signed by: Jhonny Smallwood II, D.O. Chuy Enriquez MD IMG CT PROCEDURES Final Result documented in this encounter Visit Diagnoses Diagnosis Lung nodule Other diseases of lung, not elsewhere classified documented in this encounter Care Teams Polarity Tester Relationship Specialty Start Date End Date Wolfgang Serrano MD PCP - General Family Medicine 05/05/23 08/02/24 Unknown, Notinfile 03/12/22 [place] [address] [address] 03/12/22 Chuy Enriquez MD [address] [facility] [address] [place] [address] Consulting Physician Pulmonary Disease 10/13/23 Luis Felipe Cedillo MD [address] [facility] [address], [place] [address] Consulting Physician Gastroenterology 10/13/23 Marlene Thornton MD [address] [facility] [address], [place] [address] Surgeon Vascular Surgery 11/10/23 documented as of this encounter
--- OUTSIDE RECORDS SUMMARY | 2024-10-11 01:55 | XMS_ITS | Encounter Summary ---
Author Organization [facility] Healthcare Address [address] [place] [address] Care Team Providers Care Test Development Engineer Name Role Phone Wolfgang Serrano MD Primary Care Provider Unknown, Notinfile Unavailable Unavailable Santino Funk MD Unavailable [phone] Chuy Enriquez MD Unavailable Luis Felipe Cedillo MD Unavailable Marlene Thornton MD Unavailable Encounter Details Date Type Department Care Team (Latest Contact Info) Description 01/11/2024 2:07 PM CDT - 01/11/2024 11:59 PM CDT Hospital Encounter [facility] [address] [address] Discharge Disposition: Discharge to home or self [...] materials from doctor or pharmacy Sometimes 01/09/2024 [facility] Utilities Answer Date Recorded In the past [...] any clubs o r organizations such as uatsdin groups, unions, fraternal or athletic groups, or [...] Recorded Patient Health Questionnaire-2 Score 0 01/06/2024 [facility] [place] of Occupat ional Health - Occupational Stress [...] on file Legal Sex Male 3:25 PM STABBER Gender Identity Not on file Sexual Orientation [...] mouth daily 90 tablet 01/07/2024 06/14/20 24 lidocaine (ASPERCREME) 4 % adhesive patch,medicated Place [...] (Latest Contact Info) Description 10/23/2024 10:00 AM STABBER Hospital Encounter [facility] Operating Room [address] [place] [address] [place] [address] [address] 10/23/2024 10:00 AM STABBER - 10/23/2024 1:00 PM [facility] Surgery [facility] Operating Room [address] [place] [address] [place] [address] [address] ARTHROPLASTY TOTAL KNEE LEFT Scheduled Procedures Name Priority Associated Diagnoses Date/Ti me ARTHROPLASTY TOTAL KNEE left knee osteoarthritis 10/23/2024 10:00 AM STABBER ESOPHAGOGASTRODUODENOSCOPY Dysphagia, unspecified type documented as of [...] ??Left knee has advanced varus arthritis with [id number] contact in the posteromedial aspect. ?? Jossie SANDOVAL IMG XR PROCEDURES Final Resul t documented in this encounter Visit Diagnoses Not on filedocumented in this encounter Care Teams Test Development Engineer Relationship Specialty Start Date End Date Wolfgang Serrano MD PCP - General Family Medicine 05/05/23 08/02/24 Unknown, Notinfile 03/12/22 [place] [address] [place] [address] 03/12/22 Chuy Enriquez MD [address] [place] [address] Consulting Physician Pulmonary Disease 10/13/23 Luis Felipe Cedillo MD [address] [address] Consulting Physician Gastroenterology 10/13/23 Marlene Thornton MD [address] [address] Surgeon Vascular Surgery 11/10/23 documented as of this encounter
--- OUTSIDE RECORDS SUMMARY | 2024-10-11 01:55 | XMS_ITS | Encounter Summary ---
Author Organization [facility] Healthcare Address [address] [place] [address] Care Team Providers Care Family Helper Name Role Phone Wolfgang Serrano MD Primary Care Provider Unknown, Notinfile Unavailable Unavailable Santino Funk MD Unavailable Chuy Enriquez MD Unavailable Luis Felipe Cedillo MD Unavailable Marlene Thornton MD Unavailable Encounter Details Date Type Department Care Team (Late st Contact Info) Description 01/17/2024 Telephone [facility] Scheduling [address] [place] [address] Resource, Homecare Scheduling Social History Tobacco Use [...] materials from doctor or pharmacy Sometimes 01/09/2024 [facility] Utilities Answer Date Recorded In the [...] any clubs o r organizations such as advent groups, unions, fraternal or athletic groups, or [...] on file Legal Sex Male 3:25 PM AIR QUALITY MANAGER Gender Identity Not on file Sexual Orientation Not on file documented as of this encounter Miscellaneous Notes * Telephone Encounter - Aminta Melo - 01/17/2024 10:17 AM CDT 01/16 called pt to advise that we are still working to assign gh documented in this encounter Plan of Treatment Upcoming Encounters Date Type Department Care Team (Latest Contact Info) Description 10/23/2024 10:00 AM AIR QUALITY MANAGER Hospital Encounter [facility] Operating Room [address] [place] [address] Grey Dykes MD [address] [place] [address] 10/23/2024 10:00 AM AIR QUALITY MANAGER - 10/23/2024 1:00 PM AIR QUALITY MANAGER Surgery [facility] Operating Room [address] [place] [address] [place] [address] [facility] [address] [place] [address] ARTHROPLASTY TOTAL KNEE LEFT Scheduled Procedures Name Priority Associated Diagnoses Date/Ti me ARTHROPLASTY TOTAL KNEE left knee osteoarthritis 10/23/2024 10:00 AM AIR QUALITY MANAGER ESOPHAGOGASTRODUODENOSCOPY Dysphagia, unspecified type documented as of this encounter Visit Diagnoses Not on filedocumented in this encounter Care Teams Family Helper Relationship Specialty Start Date End Date Wolfgang Serrano MD PCP - General Family Medicine 05/05/23 08/02/24 Unknown, Notinfile 03/12/22 [place] [address] [facility] [address] [place] [address] 03/12/22 Chuy Enriquez MD [address] [place] [address] Consulting Physician Pulmonary Disease 10/13/23 Luis Felipe Cedillo MD [address] [place] [address] Consulting Physician Gastroenterology 10/13/23 Marlene Thornton MD [address] [place] [address] Surgeon Vascular Surgery 11/10/23 documented as of this encounter
--- OUTSIDE RECORDS SUMMARY | 2024-10-11 01:55 | XMS_ITS | Encounter Summary ---
Author Organization [facility] Healthcare Address [address] [place] [address] Care Team Providers Care Railroad Hand Name Role Phone Wolfgang Serrano MD Primary Care Provider Unknown, Notinfile Unavailable Unavailable Santino Funk MD Unavailable [phone] Chuy Enriquez MD Unavailable [phone] Luis Felipe Cedillo MD Unavailable Marlene Thornton MD Unavailable Reason for Visit * Auth/Cert (Routine) Specialty Diagnoses / Procedures Referred By Contac t Referred To Contact Referral ID Status Reason Start Date Expiration Date Visits Re quested Visits Authorized [id number] 1 60 Encounter Details Date Type Department Care Team (Late st Contact Info) Description 01/12/2024 10:30 AM CDT Home Care Visit [facility] [address] [place] [address] João Gardner, SPORTS ATTORNEY CLINICAL TRIAL HEAD INITIAL EVAL Social History Tobacco Use Types Packs/Day Years [...] from doctor or pharmacy Sometimes 01/09/2024 [facility] Utilities Answer Date Recorded In the past 12 months has e [employer], gas, oil, or water company threatened to [...] Health Questionnaire-2 Score 0 01/06/2024 [facility] [place] of Occupat ional Health - Occupational Stress [...] on file Legal Sex Male 3:25 PM MAP MAKER Gender Identity Not on file Sexual Orientation Not on file documented as of this encounter Miscellaneous Notes * Home Health Visit Narrative - João Moscoso MSW - 01/12/2024 10:20 AM CDT QUAN PSYCHOSOCIAL SBAR Visit with pt and family completed on: 01/12/24 SITUATION: Pt is a 78 year old male admitted to home health due to s/p admission to [facility] from 12/07/2023 - 12/15/2023 secondary to acute CVA. 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 Dtr in from [employer], dtr plans on returning to [employer] this Wednesday --Primary caregiver: Spouse works during the day. Pt needing a paid caregiver during the day to assist with ADLs/IADLs when dtr leaves. Pt shares that they know of someone whom they might be able to pay while they wait to be assessed for paid caregiver services through Dept of Aging program --Caregiver willing and able to provide care for the patient: yes --Requires assistance with: toileting, dressing, bathing, transportation, shopping Transportation: --Medical appointments: Family in vehicle --Community transportation: Family in vehicle Physical status:?LLE weakness, balance deficits, gait deficits?? --O2: No -- Home DME: manual w/c, rasheed-walker, elevated toilet seat with handholds, shower bench (no grab bars), 2WW, Rolator --Sleep: good --Appetite: good Food Insecurity: --Worried About Running Out of Food in the Last Year: not at all Financial Resources: Income/Collects: social security and pensions, spouse works --Finances managed by: couple share --Able to afford basic needs yes --Qualifies for state aid programs yes Housing Stability: --Unable to Pay for Housing in the Last Year: not at all Substance use: Patient denies ETOH, tobacco and illicit drug use ASSESSMENT: Priorities/Goals: Per pt, to get myself whole again Current stressors: Per pt,??some 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 Supportive family, pt positive and motivated to get better --HCPOA in place no. working on it now with an title attorney Orientation: alert and oriented, pt shares he has some short term memory loss Mood/affect/coping skills: denies --Anxiety/depression: denies Social Connections --Frequency of Communication with Friends and Family: lives with spouse, all kids live out of state --Belong to buddhism, clubs or organizations: not at this time Pt finds meaning/pleasure: used to enjoy going to buddhism Safety concerns/barriers: 2 steps to enter/exit front and garage steps, no handrails Smoke alarms/fire extinguisher in home yes Pain: Pt denies RECOMMENDATIONS/SOCIAL WORK PLANS: get family or friend *CLINICAL TRIAL HEAD provided local listing of private duty agencies *CLINICAL TRIAL HEAD to make referral fpr expedited services to [facility] [phone] for paid in-home care services, ERB, MOW and medication dispenser *CLINICAL TRIAL HEAD phoned the [facility] Assist Aid and Attendant program [phone] for paid in funeral home manager services and after pt was assessed they determined that pt would not qualify due to having too much income *CLINICAL TRIAL HEAD provided resource for respite services: [facility] offers a respite program which reimburses thethe [facility] hospitalgiver up to $200 a month for respite services [phone] CLINICAL TRIAL HEAD assessed patient emotional wellbeing, mental health, strengths, resources, and unmet needs. MSWprovided emotional support and encouragement to patient and family through conversation, active listening, and supportive presence. Patient and family verbalized understanding of all resources discussed. Patient and family had no other needs or concerns. CLINICAL TRIAL HEAD provided contact information and encouraged patient and family to contact CLINICAL TRIAL HEAD as needs arise. CLINICAL TRIAL HEAD will coordinate care with Home Care Team. documented in this encounter Plan of Treatment Upcoming Encounters Date Type Department Care Team (Latest Contact Info) Description 10/23/2024 10:00 AM MAP MAKER Hospital Encounter [facility] Operating Room [address] [place] [address] [place] [address] [address] [address] 10/23/2024 10:00 AM MAP MAKER - 10/23/2024 1:00 PM MAP MAKER Surgery [facility] Operating Room [address] [place] [address] [place] [address] [address] ARTHROPLASTY TOTAL KNEE LEFT Scheduled Procedures Name Priority Associated Diagnoses Date/Ti me ARTHROPLASTY TOTAL KNEE left knee osteoarthritis 10/23/2024 10:00 AM MAP MAKER ESOPHAGOGASTRODUODENOSCOPY Dysphagia, unspecified type documented as of this encounter Visit Diagnoses Not on filedocumented in this encounter Home Health Visit - Care Plan Visit Details Visit Type -CLINICAL TRIAL HEAD Initial Eval uation Discipline -Medical Social Work Problems Problem Description Start Date Status Goals Interve ntions CLINICAL TRIAL HEAD Resource Needs Disciplines: Social Work Deficit related to resources. 01/12/2024 Resolved on 01/12/2024 1 goal linked to scheduled/documen ana intervention 1 goal intervention scheduled/documen ana in this visit CLINICAL TRIAL HEAD Emotional Support Needs Disciplines: Social Work Deficit related to emotional support. 01/12/2024 Resolved on 01/12/2024 1 goal linked to scheduled/documen ana intervention 1 goal intervention scheduled/documen ana in this visit Goals Goal Associated Problem Outcome Goal Met? Visit Notes Understanding of available resources Description: Resource needs met as evidenced by patient/family/ caregiver verbalizes understanding of available resources and ways to obtain these. CLINICAL TRIAL HEAD Resource Needs Completed Yes Increase emotional support Description: Patient/ family/ caregiver understands impact of illness as evidenced by verbalizing acceptance of the disease process. CLINICAL TRIAL HEAD Emotional Support Needs Completed Yes Interventions Intervention Associated Problem/Goal Status Variance Visit Notes Provide assistance with identifying appropriate community resources Description: Provide assistance with identifying appropriate community resources Problem:CLINICAL TRIAL HEAD Resource Needs Goal:Understanding of available resources Completed CLINICAL TRIAL HEAD PSYCHOSOCIAL SBAR Visit with pt and family completed on: 01/12/24 SITUATION: Pt is a 78 year old male admitted to home health due to s/p admission to [facility] from 12/07/2023 - 12/15/2023 secondary to acute CVA. 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 Dtr in from [employer], dtr plans on returning to [employer] this Wednesday --Primary caregiver: Spouse works during the day. Pt needing a paid caregiver during the day to assist with ADLs/IADLs when dtr leaves. Pt shares that they know of someone whom they might be able to pay while they wait to be assessed for paid caregiver services through Dept of Aging program --Caregiver willing and able to provide care for the patient: yes --Requires assistance with: toileting, dressing, bathing, transportation, shopping Transportation: --Medical appointments: Family in vehicle --Community transportation: Family in vehicle Physical status: LLE weakness, balance deficits, gait deficits --O2: No -- Home DME: manual w/c, rasheed-walker, elevated toilet seat with handholds, shower bench (no grab bars), 2WW, Rolator --Sleep: good --Appetite: good Food Insecurity: --Worried About Running Out of Food in the Last Year: not at all Financial Resources: Income/Collects: social security and pensions, spouse works --Finances managed by: couple share --Able to afford basic needs yes --Qualifies for state aid programs yes Housing Stability: --Unable to Pay for Housing in the Last Year: not at all Substance use: Patient denies ETOH, tobacco and illicit drug use ASSESSMENT: Priorities/Goals: Per pt, to get myself whole again Current stressors: Per pt, 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 working on it now with an title attorney Orientation: alert and oriented, pt shares he has some short term memory loss Mood/affect/coping skills: denies --Anxiety/depression: denies Social Connections --Frequency of Communication with Friends and Family: lives with spouse, all kids live out of state --Belong to buddhism, clubs or organizations: not at this time Pt finds meaning/pleasure: used to enjoy going to buddhism Safety concerns/barriers: 2 steps to enter/exit front and garage steps, no handrails Smoke alarms/fire extinguisher in home yes Pain: Pt denies RECOMMENDATIONS/SOCIAL WORK PLANS: get family or friend *CLINICAL TRIAL HEAD provided local listing of private duty agencies *CLINICAL TRIAL HEAD to make referral fpr expedited services to [facility] [phone] for paid in-home care services, ERB, MOW and medication dispenser *CLINICAL TRIAL HEAD phoned the [facility] Assist Aid and Attendant program [phone] for paid in funeral home manager services and after pt was assessed they determined that pt would not qualify due to having too much income *CLINICAL TRIAL HEAD provided resource for respite services: [facility] offers a respite program which reimburses the caregiver up to $200 a month for respite services [phone] CLINICAL TRIAL HEAD assessed patient emotional wellbeing, mental health, strengths, resources, and unmet needs. CLINICAL TRIAL HEAD provided emotional support and encouragement to patient and family through conversation, active listening, and supportive presence. Patient and family verbalized understanding of all resources discussed. Patient and family had no other needs or concerns. CLINICAL TRIAL HEAD provided contact information and encouraged patient and family to contact CLINICAL TRIAL HEAD as needs arise. CLINICAL TRIAL HEAD will coordinate care with Home Care Team. Provide Emotional Support Description: Provide emotional support Problem:CLINICAL TRIAL HEAD Emotional Support Needs Goal:Increase emotional support Completed CLINICAL TRIAL HEAD provided emotional support and encouragement to patient through conversation, active listening and supportive presence documented in this encounter Care Teams Railroad Hand Relationship Specialty Start Date End Date Wolfgang Serrano MD PCP - General Family Medicine 05/05/23 08/02/24 Unknown, Notinfile 03/12/22 [place] [address] [facility] [address] [place] [address] 03/12/22 Chuy Enriquez MD [address] [facility] [address] [place] [address] Consulting Physician Pulmonary Disease 10/13/23 Luis Felipe Cedillo MD [address] [facility] [address] [address] Consulting Physician Gastroenterology 10/13/23 Marlene Thornton MD [address] [facility] [address] [address] Surgeon Vascular Surgery 11/10/23 documented as of this encounter
--- OUTSIDE RECORDS SUMMARY | 2024-10-11 01:55 | XMS_ITS | Encounter Summary ---
Author Organization [facility] Healthcare Address [address] [place] [address] Care Team Providers Care Blood Bank Calendar Control Clerk Name Role Phone Wolfgang Serrano MD Primary Care Provider [phone] Unknown, Notinfile Unavailable Unavailable Santino Funk MD Unavailable Chuy Enriquez MD Unavailable Luis Felipe Cedillo MD Unavailable Marlene Thornton MD Unavailable [phone] Reason for Visit * Auth/Cert (Routine) Specialty Diagnoses / Procedures Referred By Contac t Referred To Contact Referral ID Status Reason Start Date Expiration Date Visits Re quested Visits Authorized [id number] 1 60 Encounter Details Date Type Department Care Team (Late st Contact Info) Description 01/17/2024 Home Care Visit [facility] [address] [place] [address] Michelle Cornelius RN SN TRIAGE ENCOUNTER Social History Tobacco [...] doctor or pharmacy Sometimes 01/09/2024 [facility] Utilities Answer Date Recorded In the past [...] often do you attend chur ch or bahai services? More than 4 times per year 12/16/2023 Do you belong to any clubs o r organizations such as gnosticism groups, unions, fraternal or athletic groups, or [...] Score 0 01/06/2024 [facility] [place] of Occupat ional Health - Occupational Stress [...] place to sleep or slept in a half-way (including now)? No 12/16/2023 Personal Safety Answer Date Recorded Have you ever been in or are you currently in a harmful physical or emotional relationship or is someone making you feel afraid or unsafe? Denies 12/15/2023 Sex and Gender Information Value Date Recorded Sex Assigned at Not on file Legal Sex Male 3:25 PM SCANNER SUPERVISOR Gender Identity Not on file Sexual Orientation Not on file documented as of this encounter Miscellaneous Notes * Triage Note - Michelle Cornelius RN - 01/17/2024 9:31 AM CDT Reason for call: APPOINTMENT TIME Sports Marketing Coordinator: GUNJAN GTZ Relationship to patient: SELF Phone number of contact clerk: SEE BELOW Return call time: 933 Communication details: 930 GUNJAN GTZ [phone] C [id number] 08 14 1944 RE: WHICH THERPIST AND WHAT TIME IS THE THERAPIT COMING TO MY HOME TODAY? 933-return call placed to patient informing schedulers are working on assigning a therapist for visit today and will notify staff of call and request a return call once assignments have been made. Follow-up: HOME CARE CHARGE NURSE, [place] SCHEDULERS, Abelino RAY, Mehul LEE NOTIFIED VIA EMAIL documented in this encounter Plan of Treatment Upcoming Encounters Date Type Department Care Team (Latest Contact Info) Description 10/23/2024 10:00 AM SCANNER SUPERVISOR Hospital Encounter [facility] Operating Room [address] [place] [address] [place] [address] [address] 10/23/2024 10:00 AM SCANNER SUPERVISOR - 10/23/2024 1:00 PM SCANNER SUPERVISOR Surgery [facility] Operating Room [address] [place] [address] [place] [address] [address] ARTHROPLASTY TOTAL KNEE LEFT Scheduled Procedures Name Priority Associated Diagnoses Date/Ti me ARTHROPLASTY TOTAL KNEE left knee osteoarthritis 10/23/2024 10:00 AM SCANNER SUPERVISOR ESOPHAGOGASTRODUODENOSCOPY Dysphagia, unspecified type documented as of this encounter Visit Diagnoses Not on filedocumented in this encounter Home Health Visit - Care Plan Visit Details Visit Type -SN Triage Encoun ter Discipline -Group Home Problems Problem Description Start Date Status Goals Interventions Homebound Status Disciplines: Skilled Disciplines Patient's homebound status 01/09/2024 Active 1 goal linked to scheduled/docume nted intervention 1 goal intervention scheduled/documen ana in this visit Monitor patient's vital signs every home health visit Disciplines: SN, PT, OT, MACHINE LOAD CLERK, PLASTIC PARTS FABRICATOR, Skilled Disciplines Monitor patient's vital signs every [...] visit during episode of care Description: Home merchandise worker to measure vital signs during every [...] Scheduled documented in this encounter Care Teams Blood Bank Calendar Control Clerk Relationship Specialty Start Date End Date Wolfgang Serrano MD PCP - General Family Medicine 05/05/23 08/02/24 Unknown, Notinfile 03/12/22 [place] [address] [facility] [address] [place] [address] 03/12/22 Chuy Enriquez MD [address] [facility] [address] [place] [address] Consulting Physician Pulmonary Disease 10/13/23 Luis Felipe Cedillo MD [address] [facility] [address], [place] [address] Consulting Physician Gastroenterology 10/13/23 Marlene Thornton MD [address] [facility] [address], [place] [address] Surgeon Vascular Surgery 11/10/23 documented as of this encounter
--- OUTSIDE RECORDS SUMMARY | 2024-10-11 01:55 | XMS_ITS | Encounter Summary ---
Author Organization [facility] Healthcare Address [address] [place] [address] Care Team Providers Care Steam Cleaning Machine Operator Name Role Phone Woflgang Serrano MD Primary Care Provider [phone] Unknown, Notinfile Unavailable Unavailable Santino Funk MD Unavailable [phone] Chuy Enriquez MD Unavailable [phone] Luis Felipe Cedillo MD Unavailable [phone] Marlene Thornton MD Unavailable [phone] Reason for Visit * Auth/Cert (Routine) Specialty Diagnoses / Procedures Referred By Contac t Referred To Contact Referral ID Status Reason Start Date Expiration Date Visits Re quested Visits Authorized [id number] 1 60 Encounter Details Date Type Department Care Team (Late st Contact Info) Description 01/10/2024 Home Care Visit [facility] Health [address] [place] [address] Arlette Briones, MARAH TELEPHONE ENCOUNTER Social History [...] doctor or pharmacy Sometimes 01/09/2024 [facility] Utilities Answer Date Recorded In the [...] often do you attend chur ch or synagogue services? More than 4 times per year [...] Recorded Patient Health Questionnaire-2 Score 0 01/06/2024 [facility] [place] of Occupat ional Health - Occupational Stress [...] on file Legal Sex Male 3:25 PM CALENDER LET OFF OPERATOR Gender Identity Not on file Sexual Orientation Not on file documented as of this encounter Plan of Treatment Upcoming Encounters Date Type Department Care Team (Latest Contact Info) Description 10/23/2024 10:00 AM CALENDER LET OFF OPERATOR Hospital Encounter [facility] Operating Room [address] [place] [address] [place] [address] [id number] 10/23/2024 10:00 AM CALENDER LET OFF OPERATOR - 10/23/2024 1:00 PM CALENDER LET OFF OPERATOR Surgery [facility] Operating Room [address] [place] [address] [place] [address] [address] ARTHROPLASTY TOTAL KNEE LEFT Scheduled Procedures Name Priority Associated Diagnoses Date/Ti me ARTHROPLASTY TOTAL KNEE left knee osteoarthritis 10/23/2024 10:00 AM CALENDER LET OFF OPERATOR ESOPHAGOGASTRODUODENOSCOPY Dysphagia, unspecified type documented as of this encounter Visit Diagnoses Not on filedocumented in this encounter Care Teams Steam Cleaning Machine Operator Relationship Specialty Start Date End Date Wolfgang Serrano MD PCP - General Family Medicine 05/05/23 08/02/24 Unknown, Notinfile 03/12/22 [place] [address] [place] [address] 03/12/22 Chuy Enriquez MD [address] [place] [address] Consulting Physician Pulmonary Disease 10/13/23 Luis Felipe Cedillo MD [address] [place] [address] Consulting Physician Gastroenterology 10/13/23 Marlene Thornton MD [address] [place] [address] Surgeon Vascular Surgery 11/10/23 documented as of this encounter
--- OUTSIDE RECORDS SUMMARY | 2024-10-11 01:55 | XMS_ITS | Encounter Summary ---
Author Organization [facility] Healthcare Address [address] [place] [address] Care Team Providers Care Link Trainer Mechanic Name Role Phone Wolfgang Serrano MD Primary Care Provider Unknown, Notinfile Unavailable Unavailable Santino Funk MD Unavailable [phone] Chuy Enriquez MD Unavailable Luis Felipe Cedillo MD Unavailable [phone] Marlene Thornton MD Unavailable Reason for Visit * Auth/Cert (Routine) Specialty Diagnoses / Procedures Referred By Contac t Referred To Contact Referral ID Status Reason Start Date Expiration Date Visits Re quested Visits Authorized [id number] 1 60 Encounter Details Date Type Department Care Team (Late st Contact Info) Description 01/12/2024 Home Care Visit [facility] [address] [place] [address] João Gardner, SURGICAL AIDES TEACHER CASE COMMUNICATION Social History Tobacco Use Types [...] often do you attend chur ch or hinduism services? More than 4 times per year 12/16/2023 Do you belong to any clubs o r organizations such as christianity groups, unions, fraternal or athletic groups, or [...] Recorded Patient Health Questionnaire-2 Score 0 01/06/2024 [facility] [place] of Occupat ional Health - Occupational Stress [...] on file Legal Sex Male 3:25 PM PULLMAN CAR CLERK Gender Identity Not on file Sexual Orientation Not on file documented as of this encounter Plan of Treatment Upcoming Encounters Date Type Department Care Team (Latest Contact Info) Description 10/23/2024 10:00 AM PULLMAN CAR CLERK Hospital Encounter [facility] Operating Room [address] [place] [address] [place] [address] [address] [address] 10/23/2024 10:00 AM PULLMAN CAR CLERK - 10/23/2024 1:00 PM PULLMAN CAR CLERK Surgery [facility] Operating Room [address] [place] [address] [place] [address] [address] ARTHROPLASTY TOTAL KNEE LEFT Scheduled Procedures Name Priority Associated Diagnoses Date/Ti me ARTHROPLASTY TOTAL KNEE left knee osteoarthritis 10/23/2024 10:00 AM PULLMAN CAR CLERK ESOPHAGOGASTRODUODENOSCOPY Dysphagia, unspecified type documented as of this encounter Visit Diagnoses Not on filedocumented in this encounter Care Teams Link Trainer Mechanic Relationship Specialty Start Date End Date Wolfgang Serrano MD PCP - General Family Medicine 05/05/23 08/02/24 Unknown, Notinfile 03/12/22 [place] [address] [address] [facility] [address] [place] [address] 03/12/22 Chuy Enriquez MD [address] [facility] [address] [place] [address] Consulting Physician Pulmonary Disease 10/13/23 Luis Felipe Cedillo MD [address] [facility] [address] [place] [address] Consulting Physician Gastroenterology 10/13/23 Marlene Thornton MD [address] [facility] [address] [place] [address] Surgeon Vascular Surgery 11/10/23 documented as of this encounter
--- OUTSIDE RECORDS SUMMARY | 2024-10-11 01:55 | XMS_ITS | Encounter Summary ---
Author Organization [facility] Healthcare Address [address] [place] [address] Care Team Providers Care Angiography Nurse Name Role Phone Wolfgang Serrano MD Primary Care Provider Unknown, Notinfile Unavailable Unavailable Santino Funk MD Unavailable Chuy Enriquez MD Unavailable Luis Felipe Cedillo MD Unavailable Marlene Thornton MD Unavailable [phone] Encounter Details Date Type Department Care Team (Late st Contact Info) Description 01/09/2024 Plan of Care Documentation [facility] [place] [address] [address] [place] [address] Social History Tobacco Use Types Packs/Day Years [...] from doctor or pharmacy Sometimes 01/09/2024 [facility] Utilities Answer Date Recorded In the [...] often do you attend chur ch or evangelical services? More than 4 times per year [...] Recorded Patient Health Questionnaire-2 Score 0 01/06/2024 [facility] [place] of Occupat ional Health - Occupational Stress [...] on file Legal Sex Male 3:25 PM PATROL OFFICER Gender Identity Not on file Sexual Orientation Not on file documented as of this encounter Miscellaneous Notes * Home Health Plan of Care Certification Statement - Sravani Chawla OT - 01/17/2024 11:58 AM CDT I certify that the above stated patient is homebound and has a need for intermittent prison, physical therapy and/or speech or occupational therapy services for their current diagnosis(es) as outlined in the initial plan of care. The patient is under my care, and I have authorized serviceson this plan of care and will periodically review the plan. The patient had a [id number] encounter with Becky Montana MD on 12/29/2023 and the encounter was related to the primary reason for home health care. documented in this encounter Plan of Treatment Upcoming Encounters Date Type Department Care Team (Latest Contact Info) Description 10/23/2024 10:00 AM PATROL OFFICER Hospital Encounter [facility] Operating Room [address] [place] [address] [place] [address] [address] 10/23/2024 10:00 AM PATROL OFFICER - 10/23/2024 1:00 PM PATROL OFFICER Surgery [facility] Operating Room [address] [place] [address] [place] [address] [id number] ARTHROPLASTY TOTAL KNEE LEFT Scheduled Procedures Name Priority Associated Diagnoses Date/Ti me ARTHROPLASTY TOTAL KNEE left knee osteoarthritis 10/23/2024 10:00 AM PATROL OFFICER ESOPHAGOGASTRODUODENOSCOPY Dysphagia, unspecified type documented as of this encounter Visit Diagnoses Not on filedocumented in this encounter Care Teams Angiography Nurse Relationship Specialty Start Date End Date Wolfgang Serrano MD PCP - General Family Medicine 05/05/23 08/02/24 Unknown, Notinfile 03/12/[address] [place] [address] [facility] [address] [place] [address] 03/12/22 Chuy Enriquez MD [address] [facility] [address] [place] [address] Consulting Physician Pulmonary Disease 10/13/23 Luis Felipe Cedillo MD [address] [facility] [place] [address] Consulting Physician Gastroenterology 10/13/23 Marlene Thornton MD [address] [facility] [place] [address] Surgeon Vascular Surgery 11/10/23 documented as of this encounter
--- OUTSIDE RECORDS SUMMARY | 2024-10-11 01:55 | XMS_ITS | Encounter Summary ---
Author Organization [facility] Healthcare Address [address] [place] [address] Care Team Providers Care Pageant Director Name Role Phone Wolfgang Serrano MD Primary Care Provider [phone] Unknown, Notinfile Unavailable Unavailable Santino Funk MD Unavailable Chuy Enriquez MD Unavailable [phone] Luis Felipe Cedillo MD Unavailable [phone] Marlene Thornton MD Unavailable Reason for Visit * Auth/Cert (Routine) Specialty Diagnoses / Procedures Referred By Contac t Referred To Contact Referral ID Status Reason Start Date Expiration Date Visits Re quested Visits Authorized [id number] 1 60 Encounter Details Date Type Department Care Team (Late st Contact Info) Description 01/12/2024 Home Care Visit [facility] [address] [place] [address] João Gardner LCSW ARCHITECTURAL MODEL MAKER DISCIPLINE DISCHARGE Social History Tobacco Use Types [...] pharmacy Sometimes 03/08/2024 [facility] Utilities Answer Date Recorded [...] often do you attend chur ch or orthodox services? More than 4 times per year 12/16/2023 Do you belong to any clubs o r organizations such as yazidism groups, unions, fraternal or athletic groups, or [...] Recorded Patient Health Questionnaire-2 Score 0 01/06/2024 [facility] [place] of Occupat ional Health - Occupational Stress [...] on file Legal Sex Male 3:25 PM VIDEO RENTAL CLERK Gender Identity Not on file Sexual Orientation Not on file documented as of this encounter Plan of Treatment Upcoming Encounters Date Type Department Care Team (Latest Contact Info) Description 10/23/2024 10:00 AM VIDEO RENTAL CLERK Hospital Encounter [facility] Operating Room [address] [place] [address] [place] [address] [address] [address] 10/23/2024 10:00 AM VIDEO RENTAL CLERK - 10/23/2024 1:00 PM VIDEO RENTAL CLERK Surgery [facility] Operating Room [address] [place] [address] [place] [address] [address] [address] ARTHROPLASTY TOTAL KNEE LEFT Scheduled Procedures Name Priority Associated Diagnoses Date/Ti me ARTHROPLASTY TOTAL KNEE left knee osteoarthritis 10/23/2024 10:00 AM VIDEO RENTAL CLERK ESOPHAGOGASTRODUODENOSCOPY Dysphagia, unspecified type documented as of this encounter Visit Diagnoses Not on filedocumented in this encounter Home Health Visit - Care Plan Visit Details Visit Type -ARCHITECTURAL MODEL MAKER Discipline D ischarge Discipline -Medical Social Work Problems Problem Description Start Date Status Goals Interve ntions ARCHITECTURAL MODEL MAKER Resource Needs Disciplines: Social Work Deficit related to resources. 01/12/2024 Resolved on 01/12/2024 1 goal linked to scheduled/documen ana intervention 1 goal intervention scheduled/documen ana in this visit ARCHITECTURAL MODEL MAKER Emotional Support Needs Disciplines: Social Work Deficit related to emotional support. 01/12/2024 Resolved on 01/12/2024 1 goal linked to scheduled/documen ana intervention 1 goal intervention scheduled/documen ana in this visit Goals Goal Associated Problem Outcome Goal Met? Visit Notes Understanding of available resources Description: Resource needs met as evidenced by patient/family/ caregiver verbalizes understanding of available resources and ways to obtain these. ARCHITECTURAL MODEL MAKER Resource Needs Met Yes Increase emotional support Description: Patient/ family/ caregiver understands impact of illness as evidenced by verbalizing acceptance of the disease process. ARCHITECTURAL MODEL MAKER Emotional Support Needs Met Yes Interventions Intervention Associated Problem/Goal Status Variance Visit Notes Provide assistance with identifying appropriate community resources Description: Provide assistance with identifying appropriate community resources Problem:ARCHITECTURAL MODEL MAKER Resource Needs Goal:Understanding of available resources Completed ARCHITECTURAL MODEL MAKER PSYCHOSOCIAL SBAR Visit with pt and family completed on: 01/12/24 SITUATION: Pt is a 78 year old male admitted to home health due to s/p admission to [facility] from 12/07/2023 - 12/15/2023 secondary to acute CVA. 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 Dtr in from [place], dtr plans on returning to [place] this Wednesday --Primary caregiver: Spouse works during [...] is not able to work as [employer] semi driver Assets: Supportive family, pt positive and motivated to get better --HCPOA in place no. working on it now with an document review attorney Orientation: alert and oriented, pt shares he has some short term memory loss Mood/affect/coping skills: denies --Anxiety/depression: denies Social Connections --Frequency of Communication with Friends and Family: lives with spouse, all kids live out of state --Belong to yazidism, clubs or organizations: not at this time Pt finds meaning/pleasure: used to enjoy going to yazidism Safety concerns/barriers: 2 steps to enter/exit front and garage steps, no handrails Smoke alarms/fire extinguisher in home yes Pain: Pt denies RECOMMENDATIONS/SOCIAL WORK PLANS: get family or friend *ARCHITECTURAL MODEL MAKER provided local listing of private duty agencies *ARCHITECTURAL MODEL MAKER to make referral fpr expedited services to [facility] [phone] for paid in-home care services, ERB, MOW and medication dispenser *ARCHITECTURAL MODEL MAKER phoned the [facility] Assist Aid and Attendant program [phone] for paid in mobile home laborer services and after pt was assessed they determined that pt would not qualify due to having too much income *ARCHITECTURAL MODEL MAKER provided resource for respite services: [facility] offers a respite program which reimburses the caregiver up to $200 a month for respite services [phone] ARCHITECTURAL MODEL MAKER assessed patient emotional wellbeing, mental health, strengths, resources, and unmet needs. ARCHITECTURAL MODEL MAKER provided emotional support and encouragement to patient and family through conversation, active listening, and supportive presence. Patient and family verbalized understanding of all resources discussed. Patient and family had no other needs or concerns. ARCHITECTURAL MODEL MAKER provided contact information and encouraged patient and family to contact ARCHITECTURAL MODEL MAKER as needs arise. ARCHITECTURAL MODEL MAKER will coordinate care with Home Care Team. Provide Emotional Support Description: Provide emotional support Problem:ARCHITECTURAL MODEL MAKER Emotional Support Needs Goal:Increase emotional support Completed ARCHITECTURAL MODEL MAKER provided emotional support and encouragement to patient through conversation, active listening and supportive presence documented in this encounter Care Teams Pageant Director Relationship Specialty Start Date End Date Wolfgang Serrano MD PCP - General Family Medicine 05/05/23 08/02/24 Unknown, Notinfile 03/12/22 [place] [address] [facility] [address] [place] [address] 03/12/22 Chuy Enriquez MD [address] [place] [address] Consulting Physician Pulmonary Disease 10/13/23 Luis Felipe Cedillo MD [address] [place] [address] Consulting Physician Gastroenterology 10/13/23 Marlene Thornton MD [address] [facility] [address] [address] Surgeon Vascular Surgery 11/10/23 documented as of this encounter
--- OUTSIDE RECORDS SUMMARY | 2024-10-11 01:55 | XMS_ITS | Encounter Summary ---
Author Organization [facility] Healthcare Address [address] [place] [address] Care Team Providers Care Distribution Lead Name Role Phone Wolfgang Serrano MD Primary Care Provider Unknown, Notinfile Unavailable Unavailable Santino Funk MD Unavailable Chuy Enriquez MD Unavailable Luis Felipe Cedillo MD Unavailable [phone] Marlene Thornton MD Unavailable Reason for Visit * Auth/Cert (Routine) Specialty Diagnoses / Procedures Referred By Contac t Referred To Contact Referral ID Status Reason Start Date Expiration Date Visits Re quested Visits Authorized [id number] 1 60 Encounter Details Date Type Department Care Team (Late st Contact Info) Description 01/13/2024 12:00 PM CDT Home Care Visit [facility] [address] [place] [address] Bing Walker, DISPATCHER AUTOMOBILE RENTAL PT HOME VISIT Social History Tobacco Use [...] from doctor or pharmacy Sometimes 01/09/2024 [facility] Utilities Answer Date Recorded In the [...] often do you attend chur ch or mosque services? More than 4 times per year 12/16/2023 Do you belong to any clubs o r organizations such as pentecostal groups, unions, fraternal or athletic groups, or [...] Questionnaire-2 Score 0 01/06/2024 [facility] [place] of Occupat ional Health - Occupational [...] on file Legal Sex Male 3:25 PM POT PRESS OPERATOR Gender Identity Not on file Sexual Orientation Not on file documented as of this encounter Last Filed Vital Signs Vital Sign Reading Time Taken Comments Blood Pressure 130/80 01/13/2024 12:41 PM CDT Pulse 68 01/13/2024 12:41 PM CDT Temperature 36.3 ??C (97.3 ??F) 01/13/2024 12:41 PM C DT Respiratory Rate 18 01/13/2024 12:41 PM CDT Oxygen Saturation 96% 01/13/2024 12:41 PM CDT Inhaled Oxygen Concentration - - Weight - - Height - - Body Mass Index - - documented in this encounter Miscellaneous Notes * Home Health Plan for Next Visit - Bing Walker PTA - 01/13/2024 1:16 PM CDT Reason for today's visit pt seen today for continued education for safe transfers, amb,HEP to improve balance, strength and endurance Discuss plan of care with pt and daughter Discharge planning discussed pts progress and goals Plan for next visit continue with ex, amb, balance and progress as tolerated documented in this encounter Plan of Treatment Upcoming Encounters Date Type Department Care Team (Latest Contact Info) Description 10/23/2024 10:00 AM POT PRESS OPERATOR Hospital Encounter [facility] Operating Room [address] [place] [address] [place] [address] [address] 10/23/2024 10:00 AM POT PRESS OPERATOR - 10/23/2024 1:00 PM POT PRESS OPERATOR Surgery [facility] Operating Room [address] [place] [address] [place] [address] [address] ARTHROPLASTY TOTAL KNEE LEFT Scheduled Procedures Name Priority Associated Diagnoses Date/Ti me ARTHROPLASTY TOTAL KNEE left knee osteoarthritis 10/23/2024 10:00 AM POT PRESS OPERATOR ESOPHAGOGASTRODUODENOSCOPY Dysphagia, unspecified type documented as [...] home health visit Disciplines: SN, PT, OT, DISPOSAL WORKER, MULTIMEDIA AUTHOR, Skilled Disciplines Monitor patient's vital signs every [...] homebound due to recent CVA, req assistance with ADLS, req assistance out of the house, fall risk Monitor Vital Signs Description: Monitor blood pressure, [...] gait/stair training. Problem:PT Stroke/CVA Completed pt amb 20'x1, 40'x1 with rasheed walker with CGA/min assist. pt had one LOB and req assistance to correct. pt instructed to have assistance at all times with amb and transfers. pt stated his L knee gives out at times.. pt amb with sling on L/U/E Bed Mobility/Transfer Training Description: Instruct patient/caregiver and perform bed mobility/transfer training. Problem:PT Stroke/CVA Completed pt transfers from sit-stand using R arm to assist with CGA/min assist to stand. pt instructed to stand for short time to balance before amb Balance Training/Activities Description: Instruct patient/caregiver and perform balance training activities. Problem:PT Stroke/CVA Completed pt performed sidestepping along railing using R hand on rail for support. pt req vc to increase foot clearance and step length. Pt fatigued easily and only performed 1x due to fatigue Therapeutic Exercise Description: Perform therapeutic exercise, progressing as tolerated. Problem:PT Stroke/CVA Completed pt in sitting performed laq and marching 15 reps. in standing pt performed heel raises, marching ,mini squats and hip abd on L/L/E 15 reps. pt performed FTSTS using R arm to assist with standing. pt tolerated ex well. pt instructed to perform HEP 2-3x a day documented in this encounter Care Teams Distribution Lead Relationship Specialty Start Date End Date Wolfgang Serrano MD PCP - General Family Medicine 05/05/23 08/02/24 Unknown, Notinfile 03/12/22 [place] [address] [place], [place] [id number] 03/12/22 Chuy Enriquez MD [address] [place] [address] Consulting Physician Pulmonary Disease 10/13/23 Luis Felipe Cedillo MD [address] [place] [address] Consulting Physician Gastroenterology 10/13/23 Marlene Thornton MD [address] [place] [address] Surgeon Vascular Surgery 11/10/23 documented as of this encounter
--- OUTSIDE RECORDS SUMMARY | 2024-10-11 01:55 | XMS_ITS | Encounter Summary ---
Author Organization [facility] Healthcare Address [address] [place] [address] Care Team Providers Care Program Engineer Name Role Phone Wolfgang Serrano MD Primary Care Provider [phone] Unknown, Notinfile Unavailable Unavailable Santino Funk MD Unavailable Chuy Enriquez MD Unavailable [phone] Luis Felipe Cedillo MD Unavailable [phone] Marlene Thornton MD Unavailable Reason for Visit * Auth/Cert (Routine) Specialty Diagnoses / Procedures Referred By Contac t Referred To Contact Referral ID Status Reason Start Date Expiration Date Visits Re quested Visits Authorized [id number] 1 60 Encounter Details Date Type Department Care Team (Latest Contact Info) Description 01/09/2024 12:30 PM CDT Home Care Visit [facility] [address] [address] [address] [place] [address] Aravind Duran, PT PT OASIS START OF CARE Social History Tobacco Use Types Packs/Day Years [...] materials from doctor or pharmacy Sometimes 01/09/2024 [facility] Utilities Answer Date Recorded In the [...] Recorded Patient Health Questionnaire-2 Score 0 01/06/2024 [facility] [place] of Occupat ional Health - Occupational Stress [...] on file Legal 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 Gender Identity Not on file Sexual Orientation Not on file documented as of this encounter Last Filed Vital Signs Vital Sign Reading Time Taken Comments Blood Pressure 128/88 01/09/2024 1:00 PM CDT Pulse 63 01/09/2024 1:00 PM CDT Temperature 36.5 ??C (97.7 ??F) 01/09/2024 1:00 PM CD T Respiratory Rate 18 01/09/2024 1:00 PM CDT Oxygen Saturation 97% 01/09/2024 1:00 PM CDT Inhaled Oxygen Concentration - - Weight 93.9 kg (207 lb) 01/09/2024 1:00 PM CDT Height 177.8 cm (5' 10 ) 01/09/2024 1:00 PM CDT Body Mass Index 29.7 01/09/2024 1:00 PM CDT documented in this encounter Miscellaneous Notes * Home Health/Infusion SBAR - Aravind Duran, PT - 01/09/2024 12:33 PM CDT SITUATION Focus of Care: Patient is a 78 year old male s/p admission to [facility] from 12/07/2023 - 12/15/2023 (8 days) secondary to acute CVA. Patient is currently in manual w/c, sling donned on left UE. Complains of intermittent left UE pain, however, denies pain today as he states that pain is well controlled with sling. Patient currently ambulates with (R) rasheed-walker, gait belt donned, requires person assist. He demonstrates LLE weakness, balance deficits, gait deficits, and need for assist with transfers. Reports fall since being home, states that he rolled out of bed . Discussed adjustable bedrail to address, educated on fall safety / prevention. Patient denies any injury from fall. Caregivers available: Patient's , additional family members / neighbors stop by/help as needed. BACKGROUND Pertinent Medical History/Hospitalizations: seizure, asthma, GERD, GE junction diverticulum, hyperlipidemia, hypothyroidism and AAA Prior Level of Functioning: independent Current Living Conditions/Safety Hazards: Lives with , good family support. Multiple family members present today due to . 2 steps to enter/exit front and garage steps, no handrails. ASSESSMENT Abnormal assessment findings: steps without handrails, elderly who may have difficulty caring for patient, throw rugs Medication Issues: none noted Re-hospitalization risk: medium Barriers to care/social determinants: steps to enter / exit home RECOMMENDATIONS POC to be confirmed with Wolfgang Serrano MD Plan for my discipline: PT 1w1, 2w5, 1w2 for LE strengthening, gait training, stair navigation training, balance training, transfer training, home safety training, fall risk reduction training, patient education. Other disciplines ordered/recommended: Patient may benefit from the following additional disciplines: STREET LIGHT REPAIRER to address speech, memory, swallowing. DRAFTER CHIEF DESIGN referral to discuss district home economics agent / community resources. Supply/HME/equipment needs or issues: Currently has the following --- manual w/c, rasheed-walker, elevated toilet seat with handholds, shower bench (no grab bars), 2WW, rollator. May benefit from (L) UEplatform attachment for 2WW. Follow ups needed: as scheduled * Quality Review - Iraida Philip - 01/09/2024 12:33 PM CDT M1700 - Cognitive Functioning 0- Alert/oriented 1- Requires prompting Changed from 0 to 1. PT OASIS - reported pt is forgetful. According to OASIS guidance, if patient is forgetful and needs cueing, repetition and reminders; then Code 1. M1710 - When Confused 0- Never 1- In new or complex situations Changed from 0 to 1. PT OASIS - reported pt is forgetful. According to OASIS guidance, if patient is forgetful or confused in new or complex situations, then Code 1. M1840 - Toilet Transferring 2- bedside commode 4- dependent Changed from 2 to 4. PT OASIS - no documented commode at bedside. The patient is unable to get to bathroom/toilet AND needs a commode which is currently not present in the home. According to OASIS guidance, you can??t assume the patient would be safe using the commode when equipment is not present. M1845 - Toileting Hygiene 1- some help 2- needs assist Changed from 1 to 2. PT OASIS - noted pt dependent with lower body dressing. According to OASIS guidance, if the patient needs help with adjusting lower body clothing due to physical/emotional impairments, then Code 2. M1028 - Active Diagnoses 1-PVD or PAD Change from blank to 1. Patient has an active diagnosis of PVD/PAD, including but not limited to venous insufficiency (I87.2) and/or any codes that start with 170.2- I70.7 and I70.9-or 173. M1033 - Risk for Hospitalization 3-Multiple hospitalizations;4-Multiple ER visits;7-Taking 5+ meds;8-Reports exhaustion 1-Hx Falls;3-Multiple hospitalizations;4-Multiple ER visits;5-Decline in mental/emotional/behavioral status;7-Taking 5+ meds;8-Reports exhaustion Add Response 1. PT OASIS - noted in [facility] includes hx falls within 3 months. According to OASIS guidance, if the patient has had 2 or more falls (witnessed or reported) OR any fall with an injury (e.g., fall resulted in fractured shoulder) in the last 12 months, then Code 1. Add Response 5. M1700 - requires prompting, M1710 - confused indicate patient is currently experiencing cognitive impairments. although not mentioned in comprehensive assessment or clear if there has been a decline. If the patient has had a decline in mental, emotional, or behavioral status, they are more likely to experience rehospitalization; and Response 5 would be appropriate. * Home Health Visit Narrative - Aravind Duran, PT - 01/09/2024 12:33 PM CDT Patient is a 78 year old male s/p admission to [facility] from 12/07/2023 - 12/15/2023 (8 days) secondary to acute CVA. Patient is currently in manual w/c, sling donned on left UE. Complains of intermittent left UE pain, however, denies pain today as he states that pain is well controlled withsling. Patient currently ambulates with (R) rasheed-walker, gait belt donned, requires person assist. He demonstrates LLE weakness, balance deficits, gait deficits, and need for assist with transfers. Reports fall since being home, states that he rolled out of bed . Discussed adjustable bedrail to address, educated on fall safety / prevention. Patient denies any injury from fall. PMH: seizure, asthma, GERD, GE junction diverticulum, hyperlipidemia, hypothyroidism and AAA PLOF: independent Home Setup: 2 steps to enter/exit front and garage steps, no handrails. Lives with , good family support. Multiple family members present today due to . DME: manual w/c, rasheed-walker, elevated toilet seat with handholds, shower bench (no grab bars), 2WW, rollator Plan: PT 1w1, 2w5, 1w2 for LE strengthening, gait training, stair navigation training, balance training, transfer training, home safety training, fall risk reduction training, patient education. Patient may benefit from the following additional disciplines: STREET LIGHT REPAIRER to address speech, memory, swallowing. DRAFTER CHIEF DESIGN referral to discuss district home economics agent / community resources. ROBERSON TU seconds with rasheed-walker and Ole for stability, gait belt donned. * Home Health Plan for Next Visit - Aravind Duran PT - 01/09/2024 12:33 PM CDT Reason for today's visit: Homecare PT start of care Discussed plan of care interventions with the patient and family, who are agreeable. Discharge planning: ongoing Plan for next visit: LE strengthening, gait training, balance training, transfers as appropriate. documented in this encounter Plan of Treatment Upcoming Encounters Date Type Department Care Team (Latest Contact Info) Description 10/23/2024 10:00 AM HEARING AID DISPENSER Hospital Encounter [facility] Operating Room [address] [place] [id number] [place] [address] [address] 10/23/2024 10:00 AM HEARING AID DISPENSER - 10/23/2024 1:00 PM HEARING AID DISPENSER Surgery [facility] Operating Room [address] [place] [id number] [place] [address] [address] ARTHROPLASTY TOTAL KNEE LEFT Scheduled Procedures Name Priority Associated Diagnoses Date/Ti me ARTHROPLASTY TOTAL KNEE left knee osteoarthritis 10/23/2024 10:00 AM HEARING AID DISPENSER ESOPHAGOGASTRODUODENOSCOPY Dysphagia, unspecified type documented as of this encounter Visit Diagnoses Not on filedocumented in this encounter Home Health Visit - Care Plan Visit Details Visit Type -PT OASIS Start o f Care Discipline -Physical Therapy Problems Problem Description Start Date Status Goals Interventions Homebound Status Disciplines: Skilled Disciplines Patient's homebound status 01/09/2024 Active 1 goal linked to scheduled/docume nted intervention 1 goal intervention scheduled/documen ana in this visit Monitor patient's vital signs every home health visit Disciplines: SN, PT, OT, STREET LIGHT REPAIRER, CAN PATCHER, Skilled Disciplines Monitor patient's vital signs every [...] problem interventions scheduled/documen ana in this visit PT Positioning/Pre ssure Relief Disciplines: Physical Therapy Positioning/seating /pressure relief needed due to recent CVA causing limiting mobility. 01/09/2024 Active - 2 problem interventions scheduled/documen ana in this visit Goals Goal Associated Problem Outcome Goal Met? Visit Notes Patient receives care at the most appropriate care setting Description: Patient receives care at the most appropriate care setting. Homebound Status No Measure vital signs during every home health visit during episode of care Description: Home wood tile installation helper to measure vital signs during every home [...] Problem:Infection Prevention Goal:Verbalize signs of infection Completed Instructed patient on signs and symptoms of infection including fever, odor, change in color, increased amount of drainage, purulent drainage, warmth. patient verbalizes good understanding of instructions and provides safe verbalization/return demonstration of instructions. Educate Family on Infection Prevention Description: Instructed family on signs and symptoms of infection IE: fever, odor, change in color, increased amount of drainage, purulent drainage, warmth. Problem:Infection Prevention Goal:Verbalize signs of infection Completed Instructed family on signs and symptoms of infection including fever, odor, change in color, increased amount of drainage, purulent drainage, warmth. patient's family verbalizes good understanding of instructions and provides safe verbalization/return demonstration of instructions. Instruct Fall Prevention Description: Instruct patient/caregiver in methods to prevent falls Problem:Safety concerns Goal:Demonstrate use of safety precautions Completed Patient educated to maintain clear pathways and good lighting, remove throw rugs, keep pets in designated areas, use assistive device as needed/instructed and ask for assistance as appropriate. Patient reports clear understanding, provides safe verbalization/return demonstration of instruction. Assess safety Description: Assess patient safety Problem:Safety concerns Goal:Demonstrate use of safety precautions Completed Instruct on Anticoagulation Therapy Description: Instruct patient/caregiver on anticoagulation medication regimen and signs and symptoms to report to home care agency or provider. Problem:DVT Prevention and Management Goal:Demonstrate knowledge of anticoagulant therapy Completed Instructed patient on anticoagulation medication regimen and signs and symptoms to report to home care agency or provider including unusual bruising or bleeding, nose bleeds, tarry stools. patient verbalizes good understanding of instructions and provides safe verbalization/return demonstration of instructions. Instruct on the prevention of deep vein thrombosis Description: Instruct patient/caregiver on signs and symptoms, preventative measures related to DVT, and provide ongoing home support based on patient needs Problem:DVT Prevention and Management Goal:Demonstrate knowledge of anticoagulant therapy Completed instructed pt. to take any anticoagulants as prescribed, perform frequent ankle pumps and mobility. patient verbalizes good understanding of instructions and provides safe verbalization/return demonstration of instructions. Instruct on pain management techniques Description: Instruct in pharmacologic and nonpharmacologic pain management techniques. Problem:Pain Goal:Report that pain has been reduced or controlled Completed Instructed patient to rest as needed, take pain medication as prescribed. Educated to contact MD office or nurse triage line in case of new or worsening pain. patient verbalizes good understanding of instructions and provides safe verbalization/return demonstration of instructions. Home Exercise Program (HEP) Description: Instruct patient/caregiver and perform HEP. Problem:PT Stroke/CVA Completed instructed to continue HEP X 10-20 reps BID as tolerated. issued handouts for reference. patient verbalizes good understanding of instructions and provides safe verbalization/return demonstration of instructions Gait/Stair Training Description: Instruct patient/caregiver and perform gait/stair training. Problem:PT Stroke/CVA Completed instructed to rest as needed, gradually increase walking program as tolerated and use assistive device as needed for safety. patient verbalizes good understanding of instructions and provides safe verbalization/return demonstration of instructions. Pressure Relief Description: Instruct patient/caregiver and perform pressure relief techniques. Problem:PT Positioning/Pressure Relief Completed instructed to change position frequently throughout day to decrease risk of skin breakdown, pressure sores. Intructed to sit on pressure reducing surfaces. patient verbalizes good understanding of instructions and provides safe verbalization/return demonstration of instructions. Positioning Description: Instruct patient/caregiver in positioning. Problem:PT Positioning/Pressure Relief Completed instructed to change position frequently throughout day to decrease risk of skin breakdown, pressure sores. patient verbalizes good understanding of instructions and provides safe verbalization/return demonstration of instructions. documented in this encounter Care Teams Program Engineer Relationship Specialty Start Date End Date Wolfgang Serrano MD PCP - General Family Medicine 05/05/23 08/02/24 Unknown, Notinfile 03/12/22 [place] [address] [facility] [address] [place] [address] 03/12/22 Chuy Enriquez MD [address] [facility] [address] [place] [address] Consulting Physician Pulmonary Disease 10/13/23 Luis Felipe Cedillo MD [address] [facility] [address], [place] [address] Consulting Physician Gastroenterology 10/13/23 Marlene Thornton MD [address] [facility] [address], [place] [address] Surgeon Vascular Surgery 11/10/23 documented as of this encounter
--- OUTSIDE RECORDS SUMMARY | 2024-10-11 01:55 | XMS_ITS | Encounter Summary ---
Author Organization [facility] Healthcare Address [address] [place] [address] Care Team Providers Care Health Benefits Specialist Name Role Phone Wolfgang Serrano MD Primary Care Provider [phone] Unknown, Notinfile Unavailable Unavailable Santino Funk MD Unavailable Chuy Enriquez MD Unavailable Luis Felipe Cedillo MD Unavailable [phone] Marlene Thornton MD Unavailable Reason for Visit * Auth/Cert (Routine) Specialty Diagnoses / Procedures Referred By Contac t Referred To Contact Referral ID Status Reason Start Date Expiration Date Visits Re quested Visits Authorized [id number] 1 60 Encounter Details Date Type Department Care Team (Latest Contact Info) Description 01/14/2024 11:00 AM CDT Home Care Visit [facility] [address] [address] [address] [place] [address] Kavya Basurto, OT OT INITIAL EVALUATION Social History Tobacco Use Types [...] materials from doctor or pharmacy Sometimes 01/09/2024 [facility] [...] any clubs o r organizations such as judaism groups, unions, fraternal or athletic groups, or [...] Recorded Patient Health Questionnaire-2 Score 0 01/06/2024 [facility] [place] of Occupat ional Health - Occupational [...] on file 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 was referred to OT s/p admission to [facility] from 12/07/2023 - 12/15/2023 (8 days) secondary [...] without a device. Pt. indep for transfers. Pt. mod to max assist for ADL's. Pt. dep for most IADL's. Pt. mod to max assist for transfers. Pt. ambulates with a in a wheelchair most of time and a 4 walker when ambulating short distances Plan to see pt. 2 times a week for 5 weeks to address ADL's, IADL's, balance, pressure relief, med management, energy conservation, DME, and HEP. Pt.'s goals are to get left arm working * Home Health Plan for Next Visit - Kavya Basurto OT - 01/14/2024 11:18 AM CDT Reason for today's visit YANDY castillo Discuss plan of care with pt. and daughter Discharge planning to self and family once OT goals are addressed Plan for next visit establish HEP, and pressure relief documented in this encounter Plan of Treatment Upcoming Encounters Date Type Department Care Team (Latest Contact Info) Description 10/23/2024 10:00 AM COMMUNITY RELATIONS SPECIALIST Hospital Encounter [facility] Operating Room [address] [place] [address] [place] [address] [facility] [address] [place], [place] [id number] 10/23/2024 10:00 AM COMMUNITY RELATIONS SPECIALIST - 10/23/2024 1:00 PM COMMUNITY RELATIONS SPECIALIST Surgery [facility] Operating Room [address] [place] [address] [place] [address] [facility] [address] [place] [address] ARTHROPLASTY TOTAL KNEE LEFT Scheduled Procedures Name Priority Associated Diagnoses Date/Ti me ARTHROPLASTY TOTAL KNEE left knee osteoarthritis 10/23/2024 10:00 AM COMMUNITY RELATIONS SPECIALIST ESOPHAGOGASTRODUODENOSCOPY Dysphagia, unspecified type documented as of this encounter Visit Diagnoses Not on filedocumented in this encounter Home Health Visit - Care Plan Visit Details Visit Type -OT Initial Evalu ation Discipline -Occupational Therapy Problems Problem Description Start Date Status Goals Interventions Homebound Status Disciplines: Skilled Disciplines Patient's homebound status 01/09/2024 Active 1 goal linked to scheduled/docume nted intervention 1 goal intervention scheduled/documen ana in this visit Monitor patient's vital signs every home health visit Disciplines: SN, PT, OT, POWERPLANT OPERATOR, SAMPLE WORKER, Skilled Disciplines Monitor patient's vital signs every [...] intervention scheduled/documen ana in this visit OT Positioning/Pre ssure Relief Disciplines: Occupational Therapy Positioning/seating /pressure relief needed due to increased time sitting 01/14/2024 Active - 1 problem intervention scheduled/documen ana in this visit OT Activity Tolerance/Energ y Conservation Disciplines: Occupational Therapy Impaired activity tolerance for functional activity 01/14/2024 Active - 1 problem intervention scheduled/jack perez in this visit OT Medication Management as an ADL Disciplines: Occupational Therapy Impaired ability to correctly manage medications as an ADL 01/14/2024 Active - 1 problem intervention scheduled/jack perez in this visit Goals Goal Associated Problem Outcome Goal Met? Visit Notes Patient receives care at the most appropriate care setting Description: Patient receives care at the most appropriate care setting. Homebound Status No Measure vital signs during every home health visit during episode of care Description: Home printing bindery assistant to measure vital signs during every home [...] concerns Goal:Demonstrate use of safety precautions Completed Educated pt. on how sitting for dressing tasks can decrease the chances of a fall. Pt. demonstrated good understanding of information. Assess safety Description: Assess patient safety Problem:Safety [...] pressure relief techniques Problem:OT Positioning/Pressure Relief Completed Educated pt. on the importance of getting up and moving every hour or two to help prevent pressure sores. Pt. demonstrated good understanding of information Energy Conservation Education Description: Instruct patient/caregiver in techniques for improved activity tolerance Problem:OT Activity Tolerance/Energy Conservation Completed Educated pt. on the importance of listening to his body. Pt. demonstrated good understanding of information Medication Routine Strategies Description: Instruct patient/caregiver in medication routine strategies. Problem:OT Medication Management as an ADL Completed Reviewed pt.'s med management routine and suggested out morning meds, from afternoon meds, and 2 times a day meds. Pt. demonstrated fair understanding of information documented in this encounter Care Teams Health Benefits Specialist Relationship Specialty Start Date End Date Wolfgang Serrano MD PCP - General Family Medicine 05/05/23 08/02/24 Unknown, Notinfile 03/12/22 [place] [address] [facility] [address] [place] [address] 03/12/22 Chuy Enriquez MD [address] [place] [address] Consulting Physician Pulmonary Disease 10/13/23 Luis Felipe Cedillo MD [address] [place] [address] Consulting Physician Gastroenterology 10/13/23 Marlene Thornton MD [address] [place] [address] Surgeon Vascular Surgery 11/10/23 documented as of this encounter
--- OUTSIDE RECORDS SUMMARY | 2024-10-11 01:55 | XMS_ITS | Encounter Summary ---
Author Organization [facility] Address [address] [place] [address] Care Team Providers Care Marble Coper Name Role Phone Wolfgang Serrano MD Primary Care Provider Unknown, Notinfile Unavailable Unavailable Santino Funk MD Unavailable [phone] Chuy Enriquez MD Unavailable Luis Felipe Cedillo MD Unavailable [phone] Marlene Thornton MD Unavailable [phone] Reason for Visit * Auth/Cert (Routine) Specialty Diagnoses / Procedures Referred By Contac t Referred To Contact Referral ID Status Reason Start Date Expiration Date Visits Re quested Visits Authorized [id number] 1 60 Encounter Details Date Type Department Care Team (Late st Contact Info) Description 01/17/2024 4:00 PM CDT Home Care Visit [facility] [address] [address] [address] [place] [address] Deloi Abel, PT PT HOME VISIT Social History Tobacco [...] materials from doctor or pharmacy Sometimes 01/09/2024 [facility] Utilities Answer Date Recorded In the [...] Recorded Patient Health Questionnaire-2 Score 0 01/06/2024 [facility] [place] [facility] Occupat ional [facility] - Occupational Stress [...] on file Legal 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 Gender Identity Not on file Sexual Orientation Not on file documented as of this encounter Last Filed Vital Signs Vital Sign Reading Time Taken Comments Blood Pressure 130/76 01/17/2024 4:42 PM CDT Pulse 76 01/17/2024 4:42 PM CDT Temperature 37 ??C (98.6 ??F) 01/17/2024 4:42 PM CDT Respiratory Rate 18 01/17/2024 4:42 PM CDT Oxygen Saturation 96% 01/17/2024 4:42 PM CDT Inhaled Oxygen Concentration - - Weight - - Height - - Body Mass Index - - documented in this encounter Miscellaneous Notes * Home Health Plan for Next Visit - Delio Abel, PT - 01/17/2024 5:09 PM CDT Reason for today's visit PT routine visit working on strength, standing, and ambulation. Discuss plan of care with patient and . Discharge planning when stable and goals are met. Plan for next visit progress with mobility, strength, standing, balance and ambulation as tolerated. documented in this encounter Plan of Treatment Upcoming Encounters Date Type Department Care Team (Latest Contact Info) Description 10/23/2024 10:00 AM ELECTRONIC DESIGN ENGINEER Hospital Encounter [facility] Operating Room [address] [place] [id number] [place] [id number] [address] 10/23/2024 10:00 AM ELECTRONIC DESIGN ENGINEER - 10/23/2024 1:00 PM ELECTRONIC DESIGN ENGINEER Surgery [facility] Operating Room [address] [place] [id number] [place] [id number] [address] ARTHROPLASTY TOTAL KNEE LEFT Scheduled Procedures Name Priority Associated Diagnoses Date/Ti me ARTHROPLASTY TOTAL KNEE left knee osteoarthritis 10/23/2024 10:00 AM ELECTRONIC DESIGN ENGINEER ESOPHAGOGASTRODUODENOSCOPY Dysphagia, unspecified type documented as [...] home health visit Disciplines: SN, PT, OT, APPLICATIONS SUPPORT LEAD, FREIGHT BOOKER, Skilled Disciplines Monitor patient's vital signs every [...] visit during episode of care Description: Home materials inspector to measure vital signs during every home [...] pain has been reduced or controlled Completed Gait/Stair Training Description: Instruct patient/caregiver and perform gait/stair training. Problem:PT Stroke/CVA Completed Patient ambulated 2x90 feet with rasheed walker and CGA. Patient required cuing at times to increase hip and knee flexion on his left to clear his foot as he fatigues. He had a few instances in which he required steadying assist after not clearing his left foot off the ground during swing phase. Therapeutic Exercise Description: Perform therapeutic exercise, progressing as tolerated. Problem:PT Stroke/CVA Completed Patient performed 15 reps of seated heel/toe raises, LAQ and hip flexion bilaterally. Patient performed seated hip abduction and adduction isometrics 10 reps holding each for 5 seconds with therapist resistance. Patient stood 2x2 minutes holding onto [employer] and performed 2 sets of 8 reps of standing marching holding onto [employer]. Patient performed 5 reps of sit to stands from wheelchair. documented in this encounter Care Teams Marble Coper Relationship Specialty Start Date End Date Wolfgang Serrano MD PCP - General Family Medicine 05/05/23 08/02/24 Unknown, Notinfile 03/12/22 [place] [id number] [facility] [address] [place] [address] 03/12/22 Cuhy Enriquez MD [address] [facility] [address] [place] [address] Consulting Physician Pulmonary Disease 10/13/23 Luis Felipe Cedillo MD [address] [facility] [address], [place] [id number] Consulting Physician Gastroenterology 10/13/23 Marlene Thornton MD [address] [facility] [address], [place] [address] Surgeon Vascular Surgery 11/10/23 documented as of this encounter
--- OUTSIDE RECORDS SUMMARY | 2024-10-11 01:56 | XMS_ITS | Encounter Summary ---
Author Organization [facility] Healthcare Address [address] [place] [address] Care Team Providers Care Casting Technician Name Role Phone Wolfgang Serrano MD Primary Care Provider Unknown, Notinfile Unavailable Unavailable Santino Funk MD Unavailable [phone] Chuy Enriquez MD Unavailable Luis Felipe Cedillo MD Unavailable Marlene Thornton MD Unavailable [phone] Reason for Referral * Home Health (Routine) - Pending Review Specialty Diagnoses / Procedures Referred By Contac t Referred To Contact Home Health Services / Home Health and Hospice Diagnoses Acute CVA (cerebrovascular accident) (HCC) Becky Montana MD [id number] [facility] [address] [place] [address] Phone: tel: fax: [facility] [address] [place] [address] Referral ID Status Reason Start Date Expiration Date Visits Requested Visits Authorized [id number] Pending Review Specialty Services Required 12/29/2023 01/27/2025 1 1 Question Answer [id number] Home Health Primary disciplines requested: Physical Therapy Secondary disciplines requested: Occupational Therapy Home Health Services Therapy to Eval/Tx Therapy instructions: ADL/ ladl management, Caregiver training/eduction, Evaluation/treatment, Home safety evaluation, Equipment evaluation/training Requested Start of Care Date: Other Comment: dc 01/07 Physician to follow patient's care (the person listed here will be responsible for signing ongoing orders): PCP I attest that I or another qualified licensed provider saw the patient 90 days prior to or 30 days post admission and this face to face encounter meets the necessary Home Health requirements. The face to face encounter occurred on (date): 12/29/2023 The encounter with the patient was in whole, or in part, for the following medical condition, which is the primary reason for home health care. (List medical condition): CVA I certify that, based on my findings, the following services are medically necessary skilled home health services: Therapy to Eval/Tx Clinical findings that support the need for home care: Frequent falls requiring safety eval/therapy, Medical condition requiring skilled assessment/education I certify that my clinical findings support patient's homebound status. Homebound criteria met because: Abnormal gait/unsteady balance resulting in fall risk, Requires assistance of another to leave home safely Reason for Visit * Auth/Cert (Routine) Specialty Diagnoses / Procedures Referred By Dillan t Referred To Contact Diagnoses Acute CVA (cerebrovascular accident) (HCC) CVA Procedures ADMIT TO INPATIENT REHAB Referral ID Status Reason Start Date Expiration Date Visits Re quested Visits Authorized [id number] 1 1 Encounter Details Date Type Department Care Team (Late st Contact Info) Description 12/15/2023 2:14 PM WAITER/WAITRESS CAFETERIA - 01/07/2024 10:10 AM CDT Hospital Encounter [facility] Physical Medicine and Rehabilitation [address] [place] [address] Becky Montana MD [id number] [address] [address] Gisel [place] [id number] [place] [address] Acute CVA (cerebrovascular accident) (HCC) [I63.9] (Primary Dx) Discharge Disposition: Discharge to home, home health skilled care Social History Tobacco Use Types Packs/Day Years Used Date Smoking Tobacco: Former Cigarettes 1966 Smokeless Tobacco: Never Alcohol Use Standard Drinks/Week Comments Yes 1 (1 standard drink = 0.6 oz pur e alcohol) [facility] Utilities Answer Date Recorded In the [...] any clubs o r organizations such as pentecostalism groups, unions, fraternal or athletic groups, or [...] Recorded Patient Health Questionnaire-2 Score 0 01/06/2024 [facility] [place] of Occupat ional Health - Occupational Stress [...] on file Legal Sex Male 3:25 PM WAITER/WAITRESS CAFETERIA Gender Identity Not on file Sexual Orientation Not on file documented as of this encounter Last Filed Vital Signs Vital Sign Reading Time Taken Comments Blood Pressure 113/71 01/06/2024 6:58 PM CDT Pulse 72 01/06/2024 6:58 PM CDT Temperature 36.6 ??C (97.9 ??F) 01/06/2024 6:58 PM CD T Respiratory Rate 18 01/06/2024 6:58 PM CDT Oxygen Saturation 95% 01/06/2024 6:58 PM CDT Inhaled Oxygen Concentration - - Weight 97.9 kg (215 lb 14.4 oz) 01/01/2024 8:35 PM CDT Height 177.8 cm (5' 10 ) 12/15/2023 2:51 PM WAITER/WAITRESS CAFETERIA Body Mass Index 30.98 12/15/2023 2:51 PM WAITER/WAITRESS CAFETERIA documented in this encounter Discharge Summaries * Becky Montana MD - 01/06/2024 10:51 AM CDT DISCHARGE SUMMARY [facility] INPATIENT RE[facility] Admission Date: 12/15/2023 Discharge Date: 01/06/2024 Attending Physician: Admitting Provider: Becky Montana MD Discharge Provider: Becky Montana MD Primary Care Physician at Discharge: Wolfgang Serrano MD [phone] Discharge Diagnoses: 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 Impaired mobility, ADLs, transfers, gait, balance, strength, endurance, speech, cognition, swallow Left shoulder/elbow pain HTN HLD AAA Hypothyroidism GERD Alzheimer Depression Asthma BPH Neuropathy Knee pain s/p knee injection Rash History of Present Illness: 78yoM with history of GERD, PVD presented to [facility] on 12/07 with sudden left sided weakness. CTH negative. CTA no LVO. He was given tPA. Neurology consulted. MRI revealed acute infarct in the posteriorlimb of the right internal capsule. Noted to have coffee ground emesis, lovenox and aspirin held and patient started on IV protonix. No further episodes and aspirin resumed. FOBT negative. Therapy rec ommending acute rehab prior to return home. Met with patient and daughter. He denies pain. States he is not sleeping well due to interruptions.States he does not like the food so has not been eating a lot. Had a bowel movement last night. No issues with urination. Denies fever, chills, chest pain, shortness of breath, nausea, vomiting, diarrhea. PLOF: Lives with who works. Daughter visiting from [place] but leaving tomorrow. 2 steps to enter. Independent without device. Hospital Course: Mr. Gtz was admitted to acute rehab on 12/13. He participated and tolerated therapy well. He complained of left shoulder and elbow pain. Left shoulder xray negative for acute pathology. He was given positioning instructions heat/ice with improvement. Orthopedics consulted for a right knee injection. He is improved and stable for discharge with home health and his family. Physical Exam at Discharge: Discharge Condition: stable Pulse: 67 Resp: 19 BP: 111/68 Temp: 36.4 ??C (97.5 ??F) Weight: 97.9 kg (215 lb 14.4 oz) Discharge Physical Exam: General: no acute distress, in recliner HEENT: normocephalic, trachea midline Heart: rrr Lungs: ctab GI: soft, nontender Neuro: awake, alert Discharge Medications: Your medication list START taking these medications aspirin 81 mg chewable tablet 81 mg, oral, Daily Doctor's comments: REFILLS THROUGH PCP Start taking on: January 07, [address] 40 mg EC tablet 40 mg, oral, 2 times daily Doctor's comments: REFILLS THROUGH PCP Commonly known as: PROTONIX gerd rosuvastatin 40 mg tablet 40 mg, oral, Daily Doctor's comments: REFILLS THROUGH PCP Commonly known as: CRESTOR Start taking on: January 07, 2024 cva CHANGE how you take these medications cholecalciferol 2000 unit capsule 2,000 Units, oral, Daily Commonly known as: VITAMIN D-3 What changed: when to take this Vitamin d deficiency tiZANidine 2 mg tablet TAKE 1 TABLET BY MOUTH EVERY 8 HOURS NEEDED FOR MUSCLE SPASM Commonly known as: ZANAFLEX What changed: See the new instructions. spasms CONTINUE taking these medications Advair HFA 230-21 mcg/actuation inhaler 2 puffs, inhalation, 2 times daily Generic drug: fluticasone propion-salmeteroL Asthma albuterol HFA 90 mcg/actuation inhaler 2 puffs, Every 4 hours PRN Commonly known as: PROVENTIL HFA,VENTOLIN HFA,PROAIR HFA asthma capsaicin 0.1 % cream Apply to your feet three to four times a day. pain cetirizine 10 mg tablet 10 mg, oral, Daily Commonly known as: ZyrTEC allergies clobetasoL 0.05 % ointment topical, 2 times daily, To most severe rash/itch on your skin. Do not use on face, armpits, or groin. If your most severe rash has yellow crusts/flakes, then mix clobetasol ointment 1:1 with mupirocin ointment before applying it. For less severe rash/itch, use triamcinolone cream sent as a separate prescription. Commonly known as: TEMOVATE rash donepeziL 10 mg tablet 10 mg, oral, Nightly Commonly known as: ARICEPT alzheimer Flovent HFA 44 mcg/actuation inhaler INHALE 2 PUFFS BY MOUTH TWICE DAILY EVERY 12 HOURS Generic drug: fluticasone propionate asthma gabapentin 300 mg capsule 600 mg, oral, 3 times daily Commonly known as: NEURONTIN Neuropathic pain levothyroxine 150 mcg tablet 150 mcg, oral, Daily Commonly known as: SYNTHROID Hypothyroidism lidocaine 4 % adhesive patch,medicated 1 patch, transdermal, Daily Commonly known as: ASPERCREME pain melatonin 10 mg tablet 10 mg, oral, Nightly sleep oxyBUTYnin XL 10 mg 24 hr tablet 15 mg, oral, Nightly Commonly known as: DITROPAN-XL Overactive bladder turmeric root extract 500 mg capsule 1,000 mg, oral, Nightly supplement STOP taking these medications azithromycin 250 mg tablet Commonly known as: ZITHROMAX eszopiclone 2 mg tablet Commonly known as: LUNESTA furosemide 20 mg tablet Commonly known as: LASIX mirtazapine 7.5 mg tablet Commonly known as: REMERON mupirocin 2 % ointment Commonly known as: BACTROBAN omeprazole 20 mg capsule Commonly known as: PriLOSEC permethrin 5 % cream Commonly known as: ELIMITE pravastatin 10 mg tablet Commonly known as: PRAVACHOL sildenafiL (pulm.hypertension) 20 mg tablet Commonly known as: REVATIO spironolactone 25 mg tablet Commonly known as: ALDACTONE triamcinolone 0.1 % cream Commonly known as: KENALOG zolpidem 5 mg tablet Commonly known as: AMBIEN ASK your doctor about these medications tamsulosin 0.4 mg extended release capsule 0.4 mg, Nightly Commonly known as: FLOMAX Discharge Functional measures: OT Functional Mobility: 12/20 Functional transfers: MOD-MAX OT Self Care: 12/20 Bathing: MAX Grooming: MAX UB dress:MOD LB dress: MAX Footwear: MAX Toileting:TOTAL NUMEROLOGIST Cognition: Mild/moderate cognitive deficits in short-term memory, insight, and problem solving/reasoning. Left visual inattention. NUMEROLOGIST Communication: Mild dysarthria NUMEROLOGIST Swallowing: Tolerating regular diet with thin liquids PT Functional Mobility: 01/04/24: Bed Mobility: supine to and from sit from elevated surface and left side as patient reports this is the side he gets up on at home. Patient performed with supervisionassist. Transfers: sit to and and from stand CG assist except one standing attempt patient with posterior left lean and needed to sit back down to regain balance before attempting again. Ambulation: rasheed-aid 15'x1, 18'x1 with generally CG assist, patient with 1 episode of left knee buckling which patient needed min assist to regain balance. Patient with downward gaze, decreased gertrudis, step to gait pattern, decreased heel strike and push off KATELIN, narrow SHANA. Stairs: one step with rasheed-aid and min assist of 1 when descending due to left knee weakness. Wheelchair management & propulsion: using KATELIN LE's and right UE 160'x1 and supervision assist with increased time to complete task. Laboratory Results: Recent Labs Lab Units 01/03/24 0423 WBC K/cumm 8.0 HEMOGLOBIN g/dL 11.7* HEMATOCRIT % 35.6* PLATELETS K/cumm 228 Recent Labs Lab Units 01/03/24 0423 SODIUM mmol/L 141 POTASSIUM PLASMA mmol/L 4.2 CHLORIDE mmol/L 108 CO2 mmol/L 26 ANIONGAP mmol/L 7 GLUCOSE mg/dL 105 BUN SERUM mg/dL 12 CREATININE mg/dL 1.22 CALCIUM mg/dL 8.9 ALBUMIN g/dL 3.0* ALK PHOS Units/L 100 ALT Units/L 23 AST Units/L 19 BILIRUBIN TOTAL mg/dL 0.3 Recent Labs Lab Units 01/03/24 0423 GLUCOSE mg/dL 105 X-Ray and Diagnostic Test Results: XR Shoulder Left 2 or More Views Result Date: 12/23/2023 Mild degenerative changes stable since previous Electronically signed by: Beka Draper M.D. Procedures Performed: None Discharge Disposition/Instructions: The patient was discharged home in stable condition. The patient met his goals and those of the rehabilitation team for functional improvement. Will continue with home health physical therapy, occupational therapy. Patient educated on NO DRIVING. Discharge Instructions: Diet Instructions Recommend to eat a generally healthy diet with foods that include a variety of fruits, vegetables, whole-grain breads, low-fat dairy products, beans, lean meats, and fish. Limit fast food, sugary drinks, excess salt, and desserts. Limit sugary drinks like lemonade, regular soda, Gatorade, and sweettea and drink water throughout the day. Continue Ensure/Boost high calorie and protein supplements 1-2x/day if appetite is poor. Call [phone] to speak with a dietitian about any diet related concerns. Additional resources are available online from the Academy of Nutrition and Dietetics at www.eatright.org Other Instructions Ambulatory referral to Home Health Service Line: Home Health Primary disciplines requested: Physical Therapy Secondary disciplines requested: Occupational Therapy Home Health Services: Therapy to Eval/Tx Therapy instructions: ADL/ ladl management Caregiver training/eduction Evaluation/treatment Home safety evaluation Equipment evaluation/training Requested Start of Care Date: Other Comment: juan 01/07 Physician to follow patient's care (the person listed here will be responsible for signing ongoing orders): PCP I attest that I or another qualified licensed provider saw the patient 90 days prior to or 30 days post admission and this face to face encounter meets the necessary Home Health requirements. The face to face encounter occurred on (date): 12/29/2023 The encounter with the patient was in whole, or in part, for the following medical condition, whichis the primary reason for home health care. (List medical condition): CVA I certify that, based on my findings, the following services are medically necessary skilled home health services: Therapy to Eval/Tx Clinical findings that support the need for home care: Frequent falls requiring safety eval/therapy Medical condition requiring skilled assessment/education I certify that my clinical findings support patient's homebound status. Homebound criteria met because: Abnormal gait/unsteady balance resulting in fall risk Requires assistance of another to leave home safely Wheelchair--Manual Regular Height chair; 20 wide, full, removable arm rests. Adjustable, removable leg rests. Justin-basic cushion. Anti-tippers removable, left arm lap tray Height: 177.8 cm (5' 10 ) Weight: 97.9 kg (215 lb 14.4 oz) Configuration: Standard Accessories: Leg Rest Anti-Tippers Seat Cushion Other (comment) Type of leg rest: Elevating Does the patient have a musculoskeletal condition or the presence of a cast or brace which [id number] degree flexion at the knee?: No Does the patient have significant edema of the lower extremities that require leg(s) to be elevated?: Yes Is the patient receiving or does the patient already have a reclining wheelchair?: No Explanatory comment: left arm lap tray Size (hip width): 20 Patient's mobility limitation significantly impairs his/her ability to participate in one or more mobility-related activities of daily living (MRADLs) such as toileting, feeding, dressing, grooming, and bathing in customary locations in the home?: Yes Patient???s mobility limitation cannot be sufficiently resolved by the use of an appropriately fitted cane or walker?: Yes Patient???s home provides adequate access between rooms, maneuvering space, and surfaces for use ofthe manual wheelchair that is provided?: Yes Use of a manual wheelchair will significantly improve the patient???s ability to participate in MRADLs and the patient will use it on a regular basis in the home?: Yes The [id number] evaluation was performed on: 01/03/2024 DME services provided by: [facility] Follow up appointments: Future Appointments Date Time Provider Department Center 01/11/2024 10:45 AM Jossie Montalvo PA [facility] OS 301 Specialty 01/24/2024 9:45 AM Chuy Enriquez MD [facility] PLM 315 PSA 02/15/2024 12:45 PM Hesham Lamb PA [facility] Dermatology 11/17/2024 8:00 AM DE OLIVEIRA BA [facility] CAM ROOM B [facility] [id number] BA 11/17/2024 8:45 AM Marlene Thornton MD [facility] CAM 8B BA Contact Information for Follow-ups [facility] Home Care Services Specialty: Home Health and Hospice [facility] [place] [address] Next Steps: Follow up Instructions: start of care 01/08 Questions: Service Line: Home Health Primary disciplines requested: Physical Therapy Secondary disciplines requested: Occupational Therapy Home Health Services: Therapy to Eval/Tx Therapy instructions: ADL/ ladl management Caregiver training/eduction Evaluation/treatment Home safety evaluation Equipment evaluation/training Requested Start of Care Date: Other Comment: dc 01/07 Physician to follow patient's care (the person listed here will be responsible for signing ongoing orders): PCP I attest that I or another qualified licensed provider saw the patient 90 days prior to or 30 days post admission and this face to face encounter meets the necessary Home Health requirements. The face to face encounter occurred on (date): 12/29/2023 The encounter with the patient was in whole, or in part, for the following medical condition, whichis the primary reason for home health care. (List medical condition): CVA I certify that, based on my findings, the following services are medically necessary skilled home health services: Therapy to Eval/Tx Clinical findings that support the need for home care: Frequent falls requiring safety eval/therapy Medical condition requiring skilled assessment/education I certify that my clinical findings support patient's homebound status. Homebound criteria met because: Abnormal gait/unsteady balance resulting in fall risk Requires assistance of another to leave home safely Referral Status: Some Visits Scheduled Wolfgang Serrano MD Specialty: Family Medicine Relationship: PCP - General [facility] [address] [place] [phone] Next Steps: Follow up on 01/13/2024 Instructions: 01/13/24 @ 2pm Please fax d/c summary to [phone] upon d/c George Sepulveda MD Specialty: Orthopedic Surgery [id number] [place] [id number] Next Steps: Follow up on 01/11/2024 Instructions: 01/10@ 10:45am for rt knee inj, had left knee done 12/28 in hospital Total time spent in care and discharge of patient: 33 minutes CC: PCP documented in this encounter Discharge Instructions * Discharge Instructions* Becky Montana MD - 01/06/2024 10:52 AM CDT NO DRIVING * Discharge Instr - Diet* Kyra Larose - 12/16/2023 3:18 PM WAITER/WAITRESS CAFETERIA Recommend to eat a generally healthy diet with foods that include a variety of fruits, vegetables, whole-grain breads, low-fat dairy products, beans, lean meats, and fish. Limit fast food, sugary drinks, excess salt, and desserts. Limit sugary drinks like lemonade, regular soda, Gatorade, and sweettea and drink water throughout the day. Continue Ensure/Boost high calorie and protein supplements 1-2x/day if appetite is poor. Call [phone] to speak with a dietitian about any diet related concerns. Additional resources are available online from the Academy of Nutrition and Dietetics at www.eatright.org ER/WAITRESS CAFETERIA documented in this encounter Medications at Time of Discharge [...] a separate prescription. 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) Take 1 tablet by mouth nightly 30 tablet 06/04/2023 Flovent HFA 44 mcg/actuation inhaler 08/25/2023 gabapentin (NEURONTIN) 300 mg capsule Take 2 capsules (600 mg total) by mouth 3 (three) times a day 11/16/2023 levothyroxine (SYNTHROID) 150 mcg tablet Take 1 tablet (150 mcg total) by mouth daily 09/19/2021 melatonin 10 mg tablet Take 1 tablet (10 mg total) by mouth nightly oxybutynin XL (DITROPAN-XL) 10 mg 24 hr tabletIndications :Urinary Urge Incontinence Take 1 tablet (10 mg total) by mouth nightly 11/07/[address] (PROTONIX) 40 mg EC tabletIndications :GI Bleed Take 1 tablet (40 mg total) by mouth 2 (two) times a day 180 tablet 01/06/2024 tamsulosin (FLOMAX) 0.4 mg extended release capsule [...] 06/14/20 24 documented as of this encounter Ordered Prescriptions Prescription Sig Dispense Quantity Refills Last Filled Start Date End Date pantoprazole DR (PROTONIX) 40 mg EC tabletIndications: GI Bleed Take 1 tablet (40 mg total) by mouth 2 (two) times a day 180 tablet 01/06/2024 rosuvastatin (CRESTOR) 40 mg tabletIndications: Secondary Stroke Prevention Take 1 tablet (40 mg total) by mouth daily 90 tablet 01/07/2024 06/14/2024 aspirin 81 mg chewable tablet Take 1 tablet (81 mg total) by mouth daily 90 tablet 01/07/2024 06/14/2024 documented in this encounter Discharge Disposition Disposition Code Departure Means Destination Comment s Discharge to home, home health skilled care Car documented in this encounter Progress Notes * Vanessa Zaman, PT - 01/06/2024 2:39 PM CDT Physical Therapy DISCHARGE SUMMARY PATIENT'S NAME:Gunjan Gtz Jr. :1945 AGE:78 y.o. TIME IN: 14:35 TIME OUT:15:20 Patient Active Problem List Diagnosis Primary osteoarthritis of both knees Subchondral insufficiency fracture of condyle of left femur (CMS/HCC) (HCC) Closed fracture of left tibial plateau with delayed healing Closed fracture of right tibial plateau with delayed healing Closed nondisplaced osteochondral fracture of left patella with delayed healing Closed osteochondral fracture of patella, right, with delayed healing, subsequent encounter Complex tear of medial meniscus of right knee as current injury Complex tear of medial meniscus of left knee as current injury Goiter Breast pain, right Cataract of right eye Diplopia Esotropia Hypertropia of right eye Skin lesion of breast Edema Intermittent claudication (HCC) Iron deficiency anemia Peripheral vascular disease (HCC) Pain due to total right knee replacement (CMS/HCC) (HCC) Hamstring tendinitis of right thigh Quadriceps weakness Idiopathic peripheral neuropathy Abnormality of gait and mobility Hx of total knee replacement, right Neuropathy (CMS/HCC) 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 Biceps tendinitis of left upper extremity Tear of left glenoid labrum Coffee ground emesis Upper GI bleed Acquired hypothyroidism Acute blood loss anemia Lung nodule Nocturnal cough Hiatal hernia Infrarenal abdominal aortic aneurysm (AAA) without rupture (HCC) Acute CVA (cerebrovascular accident) (HCC) Moderate malnutrition (CMS/HCC) Primary osteoarthritis of left knee Past Medical History: Diagnosis Date Acute gastric [...] delayed healing, subsequent encounter Clotting disorder (CMS/HCC) (HCC) Complex tear of medial meniscus of left knee as current injury Complex tear of medial meniscus of right knee as current injury Cramps of lower extremity Diverticulitis of colon Easy bruisability Fatigue Frequent urination Gastroesophageal reflux disease GERD Hypothyroidism Incontinence of urine Muscle weakness Osteoarthritis Osteoarthritis Peptic ulcer Peptic ulcer disease Seizures (HCC) 1997 last seizure in 1997 SOB (shortness of breath) on exertion Subchondral insufficiency fracture of condyle of left femur (CMS/HCC) ([facility]) Vertigo Vision changes Visual disturbance hx of double vision, corrective lenses Past Surgical History: Procedure Laterality Date CATARACT EXTRACTION, BILATERAL Bilateral 2018 HERNIA REPAIR 1979 Hiatal Hernia repair KNEE ARTHROSCOPY Bilateral THYROIDECTOMY 12/27/2019 SUBJECTIVE Yes when asked if he is ready to go home. Daughter present and reports no further questions or concerns MENTAL STATUS/ORIENTATION: Person, Place, Time, and Situation OBJECTIVE PRECAUTIONS: fall, bed/chair alarm APPEARANCE/POSTURE: seated in w/c, on room air, agreeable to PT VITAL SIGNS: Resting BP: 126/78 Post-activity BP: 132/80 Resting heart rate: 58bpm Post-activity heart rate: 63bpm Resting O2 sat: 100% Post-activity O2 sat: 100% PAIN: Pre-therapy pain level: 0/10 Pain location: n/a Pain intervention: n/a Post-therapy pain level/response to intervention: 0/10 LE ASSESSMENTS: Right LE ROM: WFL Left LE ROM: WFL Right LE strength: grossly 5/5 Left LE strength: hip flexion 3/5, hip abduction 3/5, hip adduction 3+/5, knee extension 4/5, hamstring 3/5, ankle 3/5 Coordination: minimal impairment left LE Tone: WFL - LE MOBILITY: Bed Mobility: Supine to/from sit with SBA, rolling with SBA Transfers: Sit to/from stand with with SBA, transfers bed to/from chair using rasheed aide and SBA Ambulation: Patient ambulates 25' x 2 using rasheed aide and CGA Patient with decreased gertrudis, downward gaze, narrow SHANA, decreased heel strike on right, absent heel strike on left with increased lefthip/knee flexion to clear foot. Stairs: Curb step with hemiaide and min assist Daughter present and performs curb step in w/c, x 2 with SBA from therapist Wheelchair management & propulsion: 150' using bilateral LE and right UE and SBA, min assist oncarpet. Balance: Static sitting balance: GOOD Dynamic sitting balance: GOOD Static standing balance: good- supported Dynamic standing balance: fair + supported Appearance/Posture at end of treatment session: seated in recliner, on room air, chair alarm, call light, RN aware EDUCATION: Educated: goals for PT, home safety, stairs, reviewed w/c management, gait belt and transfer safety Response to education:verbalizes understanding ASSESSMENT PROBLEM LIST: Patient continues to demonstrate deficits in strength, endurance, balance , coordination, and functional independence BARRIERS TO LEARNING: safety awareness PROGRESS IN PT: Patient is a 78 yo male with referring diagnosis of CVA. Patient has made significant progress in functional mobility during his rehab stay and is SBA for bed mobility, SBA for transfers using rasheed aide, CGA for gait using rasheed aide 20-25', and propels w/c with SBA. Patient requiresmin assist for curb step using rasheed aide. Due to continued deficits, patient will benefit from d/c h ome with family supervision and home health PT PLAN RECOMMENDATIONS: D/C HOME WITH HOME HEALTH EQUIPMENT ISSUED: MANUAL W/C Refer to multi-disciplinary care plan section for PT specific goals. * Krystle Cruz, OT - 01/06/2024 1:26 PM CDT Occupational Therapy NOTE / SESSION TYPE: OT DISCHARGE SUMMARY PATIENT'S NAME: Gunjan Gtz Jr. AGE / SEX: 78 y.o. / male ROOM: [place] [id number] : 1945 DATE: 01/06/24 TIME IN: 1315 TIME OUT: 1415 Patient Active Problem List Diagnosis Primary osteoarthritis of both knees Subchondral insufficiency fracture of condyle of left femur (CMS/HCC) (HCC) Closed fracture of left tibial plateau with delayed healing Closed fracture of right tibial plateau with delayed healing Closed nondisplaced osteochondral fracture of left patella with delayed healing Closed osteochondral fracture of patella, right, with delayed healing, subsequent encounter Complex tear of medial meniscus of right knee as current injury Complex tear of medial meniscus of left knee as current injury Goiter Breast pain, right Cataract of right eye Diplopia Esotropia Hypertropia of right eye Skin lesion of breast Edema Intermittent claudication (HCC) Iron deficiency anemia Peripheral vascular disease (HCC) Pain due to total right knee replacement (CMS/HCC) ([facility]) Hamstring tendinitis of right thigh Quadriceps weakness Idiopathic peripheral neuropathy Abnormality of gait and mobility Hx of total knee replacement, right Neuropathy (CMS/HCC) 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 Biceps tendinitis of left upper extremity Tear of left glenoid labrum Coffee ground emesis Upper GI bleed Acquired hypothyroidism Acute blood loss anemia Lung nodule Nocturnal cough Hiatal hernia Infrarenal abdominal aortic aneurysm (AAA) without rupture ([facility]) Acute CVA (cerebrovascular accident) ([facility]) Moderate malnutrition (CMS/[facility]) Primary osteoarthritis of left knee Past Medical History: Diagnosis Date Acute gastric ulcer without hemorrhage or perforation Ulcer, gastric, acute - (Added by TW Conv) Alzheimer's dementia ([facility]) Asthma Back pain Cataract Closed fracture of left tibial plateau with delayed healing Closed fracture of right tibial plateau with delayed healing Closed nondisplaced osteochondral fracture of left patella with delayed healing Closed osteochondral fracture of patella, right, with delayed healing, subsequent encounter Clotting disorder ([facility]) ([facility]) Complex tear of medial meniscus of left knee as current injury Complex tear of medial meniscus of right knee as current injury Cramps of lower extremity Diverticulitis of colon Easy bruisability Fatigue Frequent urination Gastroesophageal reflux disease GERD Hypothyroidism Incontinence of urine Muscle weakness Osteoarthritis Osteoarthritis Peptic ulcer Peptic ulcer disease Seizures ([facility]) 1997 last seizure in 1997 SOB (shortness of breath) on exertion Subchondral insufficiency fracture of condyle of left femur ([facility]/HCC) ([facility]) Vertigo Vision changes Visual disturbance hx of double vision, corrective lenses Past Surgical History: Procedure Laterality Date CATARACT EXTRACTION, BILATERAL Bilateral 2018 HERNIA REPAIR 1979 Hiatal Hernia repair KNEE ARTHROSCOPY Bilateral THYROIDECTOMY 12/27/2019 PRECAUTIONS (INCLUDING WEIGHT-BEARING): Fall risk and Bed / chair alarm SUBJECTIVE: Pt agreeable THERAPY PAIN: PRE-THERAPY PAIN LEVEL: 0 /10 PAIN LOCATION: No pain - Location N/A PAIN INTERVENTION(S): No pain - Intervention N/A POST-THERAPY PAIN LEVEL: 0 /10 PAIN SCALE USED: 0-10 SCALE OBJECTIVE: PLEASE REFER TO AM PROGRESS NOTE AND DISCHARGE QUALITY INDICATORS FROM THIS DATE FOR PROGRESS TOWARDS ADLS. APPEARANCE: PRESENTATION UPON OT ARRIVAL: PATIENT Sitting in bedside recliner PRESENTATION UPON OT DEPARTURE: PATIENT seated in PT gym BED / CHAIR ALARM IN PLACE AND ACTIVATED UPON OT DEPARTURE: Yes CALL LIGHT WITHIN ARMS REACH OF PATIENT AT END OF SESSION: No - due to patient taken to physical therapy gym COMPLETED PATIENT HANDOFF AND NOTIFIED Physical Therapist / Physical Therapist Human Resources Clerk, NAME: Shannan, OF PATIENT'S LOCATION AND FUNCTIONAL STATUS UPON COMPLETION OF SESSION VITAL SIGNS: Vitals stable throughout session, no signs or symptoms of adverse reactions COGNITIVE / PERCEPTUAL: Patient alert and oriented x 4, following 100% 1 step commands BIMS: NOT COMPLETED - SPEECH THERAPY TO ADDRESS HEALTH LITERACY: NOT COMPLETED - SPEECH THERAPY TO ADDRESS CAM (Signs and Symptoms of Delirium): NOT COMPLETED - SPEECH THERAPY TO ADDRESS UE ROM / STRENGTH / COORDINATION: (A)ROM - RIGHT: WFL STRENGTH - RIGHT: 4/5 (P)ROM - LEFT:WFL for passive range of motion, scapular elevation moderately impaired for AROM. Shoulder abduction/adduction with approx 10 degrees when weight of arm supported by therapist. STRENGTH - LEFT: 1/5 for wrist flexion/extension, elbow flexion, and shoulder flexion. 2-/5 for shoulder abduction/adduction and scapular elevation. HAND DOMINANCE: Right SUPPLY TEACHER STRENGTH (RIGHT): TRIAL 1: 60 TRIAL 2: 65 TRIAL 3: 71 AVERAGE: 74 POUND(S) SUPPLY TEACHER STRENGTH (LEFT): LATERAL PINCH (RIGHT): TRIAL 1: 19 TRIAL 2: 19 TRIAL 3: 18 AVERAGE: 18.7 POUND(S) 3-JAW PINCH (RIGHT): TRIAL 1: 13 TRIAL 2: 15 TRIAL 3: 12 AVERAGE: 13.3 POUND(S) OTHER: L UE (all joints) Self range of motion/Passive range of motion demonstration provided for pt's daughter, present for second half of session. Handout issued. ACTIVITIES: E-stim for muscle re-education (OVERALL ASSIST LEVEL): MIN A LOCATION: seated at tabletop ACTIVITY DESCRIPTION: Patient participated in E-stim activity for wrist flexion muscle re-educationwith the following settings: Wavelength:VMS , with cycle time of 10/10, ramp at 2 seconds, with amplitude at 30 mA CC. Patient demonstrated good tolerance for activity. Patient participated in activity for 9 minutes. MOBILITY: CAR TRANSFER Pt politely declines, states has already practiced on multiple occasions throughout therapy stay and wants to spend extra time doing E-SITM and SROM/PROM with daughter. PER EMR, pt has been consistently performing task with MIN A. TRANSFERS: sit<>stand at rasheed aid at bedside recliner with CG assist. Step pivot transfer with rasheed aid and CG assist to w/c. CAREGIVER PRESENT (YES / NO): Yes: daughter (for second half of sesison) EDUCATION & TRAINING PROVIDED: Role of OT, OT plan of care, ADL training, and UE home exercise program ASSESSMENT: ACTIVITY TOLERANCE / RESPONSE TO OT: GOOD PARTICIPATION, GOOD MOTIVATION, and RECEPTIVE TO EDUCATION / TRAINING SUMMARY OF DEFICITS AND RECOMMENDED FOLLOW-UP: PATIENT CONTINUES TO PRESENT WITH DEFICITS IN THE AREAS OF decreased UE function/strength, decreased ADL/IADL independence. RECOMMEND CONTINUED INTERVENTION TO BE PROVIDED THROUGH HOME HEALTH OT TO INCREASE FUNCTIONAL INDEPENDENCE EQUIPMENT PROVIDED / ORDERED: manual w/c PROGRESS TOWARDS GOALS: PLEASE REFER TO CARE PLAN FROM THIS DATE FOR PROGRESS TOWARDS INDIVIDUAL GOALS PLAN: THERAPY PLAN: PLEASE REFER TO MOST RECENT INPATIENT REHABILITATION TEAM CONFERENCE NOTE FOR DISCHARGE PLAN, INCLUDING LOCATION, RECOMMENDED LEVEL OF SUPERVISION AND ARRANGEMENTS. FREQUENCY OF THERAPY: FINAL SESSION PRIOR TO DISCHARGE PROGRESS TOWARDS GOALS: PLEASE REFER TO CARE PLAN FROM THIS DATE FOR PROGRESS TOWARDS INDIVIDUAL GOALS Krystle Cruz OT 01/06/24 * Kay Aviles, DIRECTOR OF RECRUITING - 01/06/2024 12:28 PM CDT Physical Therapy PT PROGRESS NOTE Gunjan Gtz Jr. 78 y.o. 1945 Past Medical History: Diagnosis Date Acute gastric [...] delayed healing, subsequent encounter Clotting disorder (CMS/HCC) ([facility]) Complex tear of medial meniscus of left knee as current injury Complex tear of medial meniscus of right knee as current injury Cramps of lower extremity Diverticulitis of colon Easy bruisability Fatigue Frequent urination Gastroesophageal reflux disease GERD Hypothyroidism Incontinence of urine Muscle weakness Osteoarthritis Osteoarthritis Peptic ulcer Peptic ulcer disease Seizures ([facility]) 1997 last seizure in 1997 SOB (shortness of breath) on exertion Subchondral insufficiency fracture of condyle of left femur (CMS/HCC) ([facility]) Vertigo Vision changes Visual disturbance hx of double vision, corrective lenses Past Surgical History: Procedure Laterality Date CATARACT EXTRACTION, BILATERAL Bilateral 2018 HERNIA REPAIR 1979 Hiatal Hernia repair KNEE ARTHROSCOPY Bilateral THYROIDECTOMY 12/27/2019 Patient Active Problem List Diagnosis Primary osteoarthritis of both knees Subchondral insufficiency fracture of condyle of left femur (CMS/HCC) (HCC) Closed fracture of left tibial plateau with delayed healing Closed fracture of right tibial plateau with delayed healing Closed nondisplaced osteochondral fracture of left patella with delayed healing Closed osteochondral fracture of patella, right, with delayed healing, subsequent encounter Complex tear of medial meniscus of right knee as current injury Complex tear of medial meniscus of left knee as current injury Goiter Breast pain, right Cataract of right eye Diplopia Esotropia Hypertropia of right eye Skin lesion of breast Edema Intermittent claudication (HCC) Iron deficiency anemia Peripheral vascular disease (HCC) Pain due to total right knee replacement (CMS/HCC) (HCC) Hamstring tendinitis of right thigh Quadriceps weakness Idiopathic peripheral neuropathy Abnormality of gait and mobility Hx of total knee replacement, right Neuropathy (CMS/HCC) 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 Biceps tendinitis of left upper extremity Tear of left glenoid labrum Coffee ground emesis Upper GI bleed Acquired hypothyroidism Acute blood loss anemia Lung nodule Nocturnal cough Hiatal hernia Infrarenal abdominal aortic aneurysm (AAA) without rupture (HCC) Acute CVA (cerebrovascular accident) (HCC) Moderate malnutrition (CMS/HCC) Primary osteoarthritis of left knee TIME IN: 11:15 TIME OUT: 12:09 SUBJECTIVE Patient stated he was o.k. MENTAL STATUS/ORIENTATION: Alert and oriented x4 PAIN: Pre-therapy pain level: 0/10 Pain location: n/a Pain intervention: none needed at this time Post-therapy pain level/response to intervention: 0/10 OBJECTIVE PRECAUTIONS: fall risk APPEARANCE/POSTURE: patient sitting in wheelchair, alarm in place, left lap tray in place, daughterat bedside. MOBILITY DOCUMENTATION: Bed Mobility: n/a Transfers: sit to and from stand with supervision assist, however first stand took 2 tries due to posterior lean and falling back into chair. Transfers wheelchair to recliner chair with supervision assist with rasheed-aide Ambulation: rasheed-aide 15'x2, 20'x1, first walk performed with CG assist of therapist, second two walks performed by daughter with supervision assist of therapist. Patient with decreased gertrudis, downward gaze, narrow SHANA, decreased heel strike on right, absent heel strike on left with increased left hip/knee flexion to clear foot. Stairs: one step performed with rasheed-aid with assist of daughter and CG/SBA of therapist with cues for sequencing and safety. Patient also performed chair on step method with pivoting around on chair to prepare for next step.Performed with CG Assist. Wheelchair management & propulsion: n/a TREATMENT: Family teaching performed and education provided to patient and daughter. Appearance/Posture at end of treatment session: patient sitting in recliner chair, alarm in place, call button in reach. Family at bedside. EDUCATION: PATIENT/FAMILY EDUCATION: patient and daughter educated on home safety, gait instructions, wheelchair on stairs instructions, gait belt instructions, transfer guidelines, ramp instructions, chair on step instructions. Answered all questions as able. Patient educated on the importance of no driving and that while receiving home health patient is to be considered home bound. Response to Education: demonstrated understanding, needs reinforcement, and verbalizes understanding ASSESSMENT Activity tolerance/response to PT: patient completes all activities without complaints. Daughter present and open and receptive to all activities. Daughter performed all tasks with supervision assistof therapist. Barriers to learning: none Barriers to discharge: Limited safety awareness, Limited insight into deficits, Unrealistic expectations, Upper extremity weakness, and Lower extremity weakness Patient continues progressing toward previously set goals which remain appropriate at this time. PLAN Patient to be seen bid 5x/week to address previously established deficits and goals. * Paresh Prieto, NUMEROLOGIST - 01/06/2024 10:59 AM CDT SPEECH-LANGUAGE PATHOLOGY DISCHARGE SUMMARY Patient's Name: Gunjan Gtz Jr. : 1945 Age: 78 y.o. Time In: 9:10 Time Out: 9:49 Patient Active Problem List Diagnosis Primary osteoarthritis of both knees Subchondral insufficiency fracture of condyle of left femur (CMS/HCC) ([facility]) Closed fracture of left tibial plateau with delayed healing Closed fracture of right tibial plateau with delayed healing Closed nondisplaced osteochondral fracture of left patella with delayed healing Closed osteochondral fracture of patella, right, with delayed healing, subsequent encounter Complex tear of medial meniscus of right knee as current injury Complex tear of medial meniscus of left knee as current injury Goiter Breast pain, right Cataract of right eye Diplopia Esotropia Hypertropia of right eye Skin lesion of breast Edema Intermittent claudication (HCC) Iron deficiency anemia Peripheral vascular disease (HCC) Pain due to total right knee replacement (CMS/HCC) ([facility]) Hamstring tendinitis of right thigh Quadriceps weakness Idiopathic peripheral neuropathy Abnormality of gait and mobility Hx of total knee replacement, right Neuropathy (CMS/HCC) 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 Biceps tendinitis of left upper extremity Tear of left glenoid labrum Coffee ground emesis Upper GI bleed Acquired hypothyroidism Acute blood loss anemia Lung nodule Nocturnal cough Hiatal hernia Infrarenal abdominal aortic aneurysm (AAA) without rupture ([facility]) Acute CVA (cerebrovascular accident) ([facility]) Moderate malnutrition (CMS/[facility]) Primary osteoarthritis of left knee Past Medical History: Diagnosis Date Acute gastric ulcer without hemorrhage or perforation Ulcer, gastric, acute - (Added by TW Conv) Alzheimer's dementia ([facility]) Asthma Back pain Cataract Closed fracture of left tibial plateau with delayed healing Closed fracture of right tibial plateau with delayed healing Closed nondisplaced osteochondral fracture of left patella with delayed healing Closed osteochondral fracture of patella, right, with delayed healing, subsequent encounter Clotting disorder ([facility]/HCC) ([facility]) Complex tear of medial meniscus of left knee as current injury Complex tear of medial meniscus of right knee as current injury Cramps of lower extremity Diverticulitis of colon Easy bruisability Fatigue Frequent urination Gastroesophageal reflux disease GERD Hypothyroidism Incontinence of urine Muscle weakness Osteoarthritis Osteoarthritis Peptic ulcer Peptic ulcer disease Seizures ([facility]) 1997 last seizure in 1997 SOB (shortness of breath) on exertion Subchondral insufficiency fracture of condyle of left femur ([facility]) ([facility]) Vertigo Vision changes Visual disturbance hx of double vision, corrective lenses Past Surgical History: Procedure Laterality Date CATARACT EXTRACTION, BILATERAL Bilateral 2018 HERNIA REPAIR 1979 Hiatal Hernia repair KNEE ARTHROSCOPY Bilateral THYROIDECTOMY 12/27/2019 SUBJECTIVE MENTAL STATUS: Patient awake, resting in recliner. Daughter present in room. Anxious to return home. PAIN: Pre Therapy Pain Level: 0/10 Pain Location: N/A Pain Intervention: N/A Post Therapy Pain Level/Response to Intervention: 0/10 OBJECTIVE PRECAUTIONS: Fall precautions ORAL MOTOR: Left labial weakness with decreased ROM. Mild anterior spillage of secretions intermittently. MOTOR SPEECH: Mild dysarthric speech, however, completely intelligible during spontaneous sentencesand conversational tasks. COMPREHENSION: WNL EXPRESSION: WNL COGNITION: Oriented x4; Mild/moderate decrease with memory, insight and safety awareness which may be baseline for patient. SWALLOWING/DYSPHAGIA: Swallow assessed by NUMEROLOGIST. Regular consistency diet/thin liquids recommended. Patient continues to tolerate recommended diet with no overt signs of aspiration. Able to clear any residue independently. EDUCATION: PATIENT/FAMILY Education: Reviewed safety precautions, discharge recommendations and speech therapygoals with patient and patient's daughter Response to Education: Understanding verbalized ASSESSMENT ACTIVITY TOLERANCE/RESPONSE TO ST: Tolerated speech therapy session with no complaints BARRIERS TO LEARNING: Decreased safety awareness, Decreased insight, Vision PROGRESS IN ST: Patient with mild dysarthric speech. 100% intelligible during spontaneous sentencesand 90-100% during conversational tasks. Mild/moderate decrease with memory, insight and safety awareness which may be baseline for patient. PLAN RECOMMENDATIONS: Recommend home with 24 hour supervision at discharge. Refer to care plan from this date for progress toward ST specific goals * Dwaine Kay NicholsonANGI - 01/06/2024 10:32 AM CDT Occupational Therapy NOTE TYPE: OT TREATMENT ([facility] BEDSIDE SESSION) Patient's Name: Gunjan Gtz Jr. Age / Sex: 78 y.o. / male Room: [place] [address] : 1945 Date: 01/06/24 Time In: 1029 Time Out: 1115 Patient Active Problem List Diagnosis Primary osteoarthritis of both knees Subchondral insufficiency fracture of condyle of left femur (CMS/HCC) (HCC) Closed fracture of left tibial plateau with delayed healing Closed fracture of right tibial plateau with delayed healing Closed nondisplaced osteochondral fracture of left patella with delayed healing Closed osteochondral fracture of patella, right, with delayed healing, subsequent encounter Complex tear of medial meniscus of right knee as current injury Complex tear of medial meniscus of left knee as current injury Goiter Breast pain, right Cataract of right eye Diplopia Esotropia Hypertropia of right eye Skin lesion of breast Edema Intermittent claudication (HCC) Iron deficiency anemia Peripheral vascular disease (HCC) Pain due to total right knee replacement (CMS/HCC) ([facility]) Hamstring tendinitis of right thigh Quadriceps weakness Idiopathic peripheral neuropathy Abnormality of gait and mobility Hx of total knee replacement, right Neuropathy (CMS/HCC) 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 Biceps tendinitis of left upper extremity Tear of left glenoid labrum Coffee ground emesis Upper GI bleed Acquired hypothyroidism Acute blood loss anemia Lung nodule Nocturnal cough Hiatal hernia Infrarenal abdominal aortic aneurysm (AAA) without rupture ([facility]) Acute CVA (cerebrovascular accident) ([facility]) Moderate malnutrition (CMS/[facility]) Primary osteoarthritis of left knee Past Medical History: Diagnosis Date Acute gastric ulcer without hemorrhage or perforation Ulcer, gastric, acute - (Added by TW Conv) Alzheimer's dementia ([facility]) Asthma Back pain Cataract Closed fracture of left tibial plateau with delayed healing Closed fracture of right tibial plateau with delayed healing Closed nondisplaced osteochondral fracture of left patella with delayed healing Closed osteochondral fracture of patella, right, with delayed healing, subsequent encounter Clotting disorder ([facility]) ([facility]) Complex tear of medial meniscus of left knee as current injury Complex tear of medial meniscus of right knee as current injury Cramps of lower extremity Diverticulitis of colon Easy bruisability Fatigue Frequent urination Gastroesophageal reflux disease GERD Hypothyroidism Incontinence of urine Muscle weakness Osteoarthritis Osteoarthritis Peptic ulcer Peptic ulcer disease Seizures ([facility]) 1997 last seizure in 1997 SOB (shortness of breath) on exertion Subchondral insufficiency fracture of condyle of left femur ([facility]/HCC) ([facility]) Vertigo Vision changes Visual disturbance hx of double vision, corrective lenses Past Surgical History: Procedure Laterality Date CATARACT EXTRACTION, BILATERAL Bilateral 2018 HERNIA REPAIR 1979 Hiatal Hernia repair KNEE ARTHROSCOPY Bilateral THYROIDECTOMY 12/27/2019 Precautions (Including Weight-Bearing): Fall risk and Bed / chair alarm SUBJECTIVE: This is my daughter. Therapy Pain: Pre-therapy pain level: 0 / 10 Pain location: No pain - Location N/A Pain intervention(s): No pain - Intervention N/A Post-therapy pain level: 0 / 10 Pain scale used: 0-10 SCALE OBJECTIVE: APPEARANCE: Presentation upon OT arrival: Patient Sitting in bedside recliner Presentation upon OT departure: PATIENT Sitting in manual wheelchair with staff assistance Bed / chair alarm in place and activated upon OT departure: Yes Call light within arms reach of patient at end of session: No - due to patient taken to physical therapy gym Completed patient handoff and notified Physical Therapist / Physical Therapist Human Resources Clerk, name: Shannan, of patient's location and functional status upon completion of session. SELF CARE: Shower / Bathe Self Type of bathing: spongebathing Location of shower / bathe self: Sitting in manual wheelchair and Standing at grab bar Tasks completed: all components Components that required assistance (if applicable): MAX ASSIST RIGHT ARM and MAX ASSIST BUTTOCKS Overall assist level: Partial / moderate assistance: Less than half (1% - 49%) Adaptive equipment (if applicable): no assistive device Additional documentation: MOD assist overall. Pt stands with CGA at sink while therapist washes buttocks. Oral Hygiene Location of oral hygiene: Sitting in manual wheelchair Overall assist level: Set-up / clean up assistance Additional documentation: Assist for item retrieval. Patient manages toothbrush/paste. Other Grooming Tasks Location of other grooming tasks: Sitting in manual wheelchair Tasks completed: COMBING HAIR and APPLYING DEODORANT Overall assist level: Set-up / clean up assistance Additional documentation: UE Dressing Location of UE dressing: Sitting in manual wheelchair Tasks completed: Sweatshirt and Undershirt Overall assist level: MIN A Additional documentation: MIN to adjust shirt on shoulder and back. LE Dressing (Underwear / Pants) Location of LE dressing (Underwear / Pants): Sitting in manual wheelchair and Standing at grab bar Tasks completed: Elastic waist pants and Incontinence briefs as underwear Overall assist level: Substantial / maximal assistance: More than half (50% - 99%) Additional documentation: Assist for feeding both legs through pant. Pt assists pulling up to thighs. Assist for hips components while standing with intermittent CGA and stability of sink. Putting On / Taking Off Footwear Location of putting on / taking off footwear: Sitting in manual wheelchair Tasks completed: Sock(s) and Slip-on shoe(s) Overall assist level: Substantial / maximal assistance: More than half (50% - 99%) Additional documentation: MAX A overall. MOBILITY: Transfers: Sit to stand from recliner and pivot pt to w/c with CGA and use of rasheed aide HEARING / SPEECH / VISION: Expression of ideas and wants Overall assist level: WITHOUT DIFFICULTY Understanding verbal and non-verbal content Overall assist level: UNDERSTANDS Caregiver present (yes / no): No Education & training provided: Role of OT, OT plan of care, ADL training, Functional transfer training, Balance training, and Safety education ASSESSMENT: Activity tolerance / response to OT: GOOD PARTICIPATION, GOOD MOTIVATION, and RECEPTIVE TO EDUCATION / TRAINING Progress towards goals: Please refer to Care Plan from this date for progress towards individual goals. PLAN: Therapy Plan: Please refer to most recent Inpatient Rehabilitation Team Conference note for discharge plan, including location, recommended level of supervision, and arrangements. Frequency of therapy: BID SESSIONS 5 DAYS / WEEK TO ADDRESS PREVIOUSLY ESTABLISHED DEFICITS AND GOALS ANGI Villa 01/06/24 * Madie Oneill PTA - 01/05/2024 2:26 PM CDT Physical Therapy PT PROGRESS NOTE Gunjanshauna Gtz Jr. 78 y.o. 1945 Past Medical History: Diagnosis Date Acute gastric ulcer without hemorrhage or perforation Ulcer, gastric, acute - (Added by TW Conv) Alzheimer's dementia ([facility]) Asthma Back pain Cataract Closed fracture of left tibial plateau with delayed healing Closed fracture of right tibial plateau with delayed healing Closed nondisplaced osteochondral fracture of left patella with delayed healing Closed osteochondral fracture of patella, right, with delayed healing, subsequent encounter Clotting disorder (CMS/HCC) (HCC) Complex tear of medial meniscus of left knee as current injury Complex tear of medial meniscus of right knee as current injury Cramps of lower extremity Diverticulitis of colon Easy bruisability Fatigue Frequent urination Gastroesophageal reflux disease GERD Hypothyroidism Incontinence of urine Muscle weakness Osteoarthritis Osteoarthritis Peptic ulcer Peptic ulcer disease Seizures ([facility]) 1997 last seizure in 1997 SOB (shortness of breath) on exertion Subchondral insufficiency fracture of condyle of left femur (CMS/HCC) (HCC) Vertigo Vision changes Visual disturbance hx of double vision, corrective lenses Past Surgical History: Procedure Laterality Date CATARACT EXTRACTION, BILATERAL Bilateral 2018 HERNIA REPAIR 1979 Hiatal Hernia repair KNEE ARTHROSCOPY Bilateral THYROIDECTOMY 12/27/2019 Patient Active Problem List Diagnosis Primary osteoarthritis of both knees Subchondral insufficiency fracture of condyle of left femur (CMS/HCC) (HCC) Closed fracture of left tibial plateau with delayed healing Closed fracture of right tibial plateau with delayed healing Closed nondisplaced osteochondral fracture of left patella with delayed healing Closed osteochondral fracture of patella, right, with delayed healing, subsequent encounter Complex tear of medial meniscus of right knee as current injury Complex tear of medial meniscus of left knee as current injury Goiter Breast pain, right Cataract of right eye Diplopia Esotropia Hypertropia of right eye Skin lesion of breast Edema Intermittent claudication (HCC) Iron deficiency anemia Peripheral vascular disease (HCC) Pain due to total right knee replacement (CMS/HCC) (HCC) Hamstring tendinitis of right thigh Quadriceps weakness Idiopathic peripheral neuropathy Abnormality of gait and mobility Hx of total knee replacement, right Neuropathy (CMS/HCC) 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 Biceps tendinitis of left upper extremity Tear of left glenoid labrum Coffee ground emesis Upper GI bleed Acquired hypothyroidism Acute blood loss anemia Lung nodule Nocturnal cough Hiatal hernia Infrarenal abdominal aortic aneurysm (AAA) without rupture (HCC) Acute CVA (cerebrovascular accident) (HCC) Moderate malnutrition (CMS/HCC) Primary osteoarthritis of left knee TIME IN: 230 TIME OUT: 310 SUBJECTIVE I'm tired right now. Patient agreeable to therapy. MENTAL STATUS/ORIENTATION: Alert and oriented x4 PAIN: Pre-therapy pain level: none Pain location: na Pain intervention: na Post-therapy pain level/response to intervention: none OBJECTIVE PRECAUTIONS: fall APPEARANCE/POSTURE: present in therapy gym, seated in W/C, chair alarm active MOBILITY DOCUMENTATION: Bed Mobility: sit to supine with CG assist first trial and SPV second trial. Supine to sit with SBAboth trials. Transfers: sit <> stand from high level mat, W/C with CG assist. Ambulation: 5' + 12' + 5' with rasheed-aide and MIN assist. Fatigued this afternoon. No significant gait changes compared to AM. Slower paced, increased L lean. Stairs: NT Wheelchair management & propulsion: 60' forward + 60' backward independent with modifications due to safety. TREATMENT: Patient performs the following supine HEP x 10 reps KATELIN: Bridges, BKFO (Min assist on L LE), SLR (Min assist on L LE) Standing HEP x 10 reps: hip ABD on R and L; mini-squats, marching R and L Appearance/Posture at end of treatment session: transfer to recliner with chair alarm active and call light in reach, KATELIN LE elevated. EDUCATION: PATIENT/FAMILY EDUCATION: supine HEP, bed mobility, standing HEP Response to Education: needs reinforcement ASSESSMENT Activity tolerance/response to PT: GOOD Patient with good participation, fatigued this PM but completes all tasks. Barriers to learning: unchanged from AM Barriers to discharge: unchanged from AM Patient continues progressing toward previously set goals which remain appropriate at this time. PLAN Patient to be seen bid 5x/week to address previously established deficits and goals. * Kay Isidro COTA - 01/05/2024 1:34 PM CDT Occupational Therapy NOTE TYPE: OT TREATMENT ([facility] DEPARTMENT SESSION) PATIENT'S NAME: Gunjan Gtz Jr. AGE / SEX: 78 y.o. / male ROOM: [place] [id number] : 1945 DATE: 01/05/24 TIME IN: 1331 TIME OUT: 1415 Patient Active Problem List Diagnosis Primary osteoarthritis of both knees Subchondral insufficiency fracture of condyle of left femur (CMS/HCC) ([facility]) Closed fracture of left tibial plateau with delayed healing Closed fracture of right tibial plateau with delayed healing Closed nondisplaced osteochondral fracture of left patella with delayed healing Closed osteochondral fracture of patella, right, with delayed healing, subsequent encounter Complex tear of medial meniscus of right knee as current injury Complex tear of medial meniscus of left knee as current injury Goiter Breast pain, right Cataract of right eye Diplopia Esotropia Hypertropia of right eye Skin lesion of breast Edema Intermittent claudication (HCC) Iron deficiency anemia Peripheral vascular disease (HCC) Pain due to total right knee replacement (CMS/HCC) ([facility]) Hamstring tendinitis of right thigh Quadriceps weakness Idiopathic peripheral neuropathy Abnormality of gait and mobility Hx of total knee replacement, right Neuropathy (CMS/HCC) 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 Biceps tendinitis of left upper extremity Tear of left glenoid labrum Coffee ground emesis Upper GI bleed Acquired hypothyroidism Acute blood loss anemia Lung nodule Nocturnal cough Hiatal hernia Infrarenal abdominal aortic aneurysm (AAA) without rupture (HCC) Acute CVA (cerebrovascular accident) (HCC) Moderate malnutrition (CMS/HCC) Primary osteoarthritis of left knee Past Medical History: Diagnosis Date Acute gastric [...] with delayed healing, subsequent encounter Clotting disorder (CMS/[facility]) ([facility]) Complex tear of medial meniscus of left knee as current injury Complex tear of medial meniscus of right knee as current injury Cramps of lower extremity Diverticulitis of colon Easy bruisability Fatigue Frequent urination Gastroesophageal reflux disease GERD Hypothyroidism Incontinence of urine Muscle weakness Osteoarthritis Osteoarthritis Peptic ulcer Peptic ulcer disease Seizures ([facility]) 1997 last seizure in 1997 SOB (shortness of breath) on exertion Subchondral insufficiency fracture of condyle of left femur (CMS/[facility]) ([facility]) Vertigo Vision changes Visual disturbance hx of double vision, corrective lenses Past Surgical History: Procedure Laterality Date CATARACT EXTRACTION, BILATERAL Bilateral 2018 HERNIA REPAIR 1979 Hiatal Hernia repair KNEE ARTHROSCOPY Bilateral THYROIDECTOMY 12/27/2019 PRECAUTIONS (INCLUDING WEIGHT-BEARING): Fall risk and Bed / chair alarm SUBJECTIVE: This hurts my fingers Pt doing SROM for LUE and experiencing pain when grasping L hand in interlocking position. THERAPY PAIN: PRE-THERAPY PAIN LEVEL: 0 / 10 PAIN LOCATION: No pain - Location N/A PAIN INTERVENTION(S): No pain - Intervention N/A POST-THERAPY PAIN LEVEL: 0 / 10 PAIN SCALE USED: 0-10 SCALE OBJECTIVE: APPEARANCE: PRESENTATION UPON OT ARRIVAL: PATIENT Sitting in bedside recliner PRESENTATION UPON OT DEPARTURE: PATIENT Sitting in manual wheelchair with staff assistance BED / CHAIR ALARM IN PLACE AND ACTIVATED UPON OT DEPARTURE: Yes CALL LIGHT WITHIN ARMS REACH OF PATIENT AT END OF SESSION: No - due to patient taken to physical therapy gym COMPLETED PATIENT HANDOFF AND NOTIFIED Physical Therapist / Physical Therapist Human Resources Clerk, NAME: Shannan, OF PATIENT'S LOCATION AND FUNCTIONAL STATUS UPON COMPLETION OF SESSION UE THERAPEUTIC EXERCISES: PROM and gentle stretching to LUE shoulder as pain allows. Pt completed 5 reps of shoulder elevation/depression. Impulsive and requires cues to raise up fully as opposed to a quick shrug. Pt also impulsive when performing SROM ex. Cues for proper hand positioning to avoid injury. BALANCE: STATIC STANDING: Pt stood for approx 30 sec with intermittent CGA and heavy use of grab bar for stability while MOBILITY: TOILET TRANSFER LOCATION: RAISED TOILET SEAT no ARMS OVERALL ASSIST LEVEL: CGA/MIN A DEVICE: GRAB BARS and LARGE-BASE QUAD CANE ADDITIONAL DOCUMENTATION: Uses grab bar when standing for stability TRANSFERS: Transferred from wc to weight chair with MIN/CGA using [facility]. CAREGIVER PRESENT (YES / NO): No EDUCATION & TRAINING PROVIDED: ADL training, Functional transfer training, and Balance training ASSESSMENT: ACTIVITY TOLERANCE / RESPONSE TO OT: GOOD PARTICIPATION, GOOD MOTIVATION, and RECEPTIVE TO EDUCATION / TRAINING PROGRESS TOWARDS GOALS: PLEASE REFER TO CARE PLAN FROM THIS DATE FOR PROGRESS TOWARDS INDIVIDUAL GOALS PLAN: PLEASE REFER TO MOST RECENT INPATIENT REHABILITATION TEAM CONFERENCE NOTE FOR DISCHARGE PLAN, INCLUDING LOCATION, RECOMMENDED LEVEL OF SUPERVISION AND ARRANGEMENTS. FREQUENCY OF THERAPY: BID SESSIONS 5 DAYS / WEEK TO ADDRESS PREVIOUSLY ESTABLISHED DEFICITS AND GOALS ANGI Villa 01/05/24 * Krystle Cruz OT - 01/05/2024 12:37 PM CDT Occupational Therapy NOTE TYPE: OT TREATMENT ([facility] BEDSIDE SESSION) Patient's Name: Gunjan Gtz Jr. Age / Sex: 78 y.o. / male Room: [place] [id number] : 1945 Date: 01/05/24 Time In: 1016 Time Out: 1107 Patient Active Problem List Diagnosis Primary osteoarthritis of both knees Subchondral insufficiency fracture of condyle of left femur (CMS/HCC) ([facility]) Closed fracture of left tibial plateau with delayed healing Closed fracture of right tibial plateau with delayed healing Closed nondisplaced osteochondral fracture of left patella with delayed healing Closed osteochondral fracture of patella, right, with delayed healing, subsequent encounter Complex tear of medial meniscus of right knee as current injury Complex tear of medial meniscus of left knee as current injury Goiter Breast pain, right Cataract of right eye Diplopia Esotropia Hypertropia of right eye Skin lesion of breast Edema Intermittent claudication ([facility]) Iron deficiency anemia Peripheral vascular disease ([facility]) Pain due to total right knee replacement (CMS/HCC) ([facility]) Hamstring tendinitis of right thigh Quadriceps weakness Idiopathic peripheral neuropathy Abnormality of gait and mobility Hx of total knee replacement, right Neuropathy (CMS/HCC) 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 Biceps tendinitis of left upper extremity Tear of left glenoid labrum Coffee ground emesis Upper GI bleed Acquired hypothyroidism Acute blood loss anemia Lung nodule Nocturnal cough Hiatal hernia Infrarenal abdominal aortic aneurysm (AAA) without rupture ([facility]) Acute CVA (cerebrovascular accident) ([facility]) Moderate malnutrition (CMS/[facility]) Primary osteoarthritis of left knee Past Medical History: Diagnosis Date Acute gastric ulcer without hemorrhage or perforation Ulcer, gastric, acute - (Added by TW Conv) Alzheimer's dementia ([facility]) Asthma Back pain Cataract Closed fracture of left tibial plateau with delayed healing Closed fracture of right tibial plateau with delayed healing Closed nondisplaced osteochondral fracture of left patella with delayed healing Closed osteochondral fracture of patella, right, with delayed healing, subsequent encounter Clotting disorder (CMS/HCC) ([facility]) Complex tear of medial meniscus of left knee as current injury Complex tear of medial meniscus of right knee as current injury Cramps of lower extremity Diverticulitis of colon Easy bruisability Fatigue Frequent urination Gastroesophageal reflux disease GERD Hypothyroidism Incontinence of urine Muscle weakness Osteoarthritis Osteoarthritis Peptic ulcer Peptic ulcer disease Seizures ([facility]) 1997 last seizure in 1997 SOB (shortness of breath) on exertion Subchondral insufficiency fracture of condyle of left femur (CMS/HCC) ([facility]) Vertigo Vision changes Visual disturbance hx of double vision, corrective lenses Past Surgical History: Procedure Laterality Date CATARACT EXTRACTION, BILATERAL Bilateral 2018 HERNIA REPAIR 1979 Hiatal Hernia repair KNEE ARTHROSCOPY Bilateral THYROIDECTOMY 12/27/2019 Precautions (Including Weight-Bearing): Fall risk and Bed / chair alarm SUBJECTIVE: Pt agreeable, pleasant and cooperative. Therapy Pain: Pre-therapy pain level: 0 / 10 Pain location: No pain - Location N/A Pain intervention(s): No pain - Intervention N/A Post-therapy pain level: 0 / 10 Pain scale used: 0-10 SCALE OBJECTIVE: APPEARANCE: Presentation upon OT arrival: Patient Sitting in bedside recliner Presentation upon OT departure: PATIENT Sitting in manual wheelchair with staff assistance Bed / chair alarm in place and activated upon OT departure: Yes Call light within arms reach of patient at end of session: Yes Completed patient handoff and notified Physical Therapist / Physical Therapist Human Resources Clerk, name: Marcia, of patient's location and functional status upon completion of session. VITAL SIGNS: Vitals stable throughout session, no signs or symptoms of adverse reactions COGNITIVE / PERCEPTUAL: Patient alert and oriented x 4, following 100% 1 step commands SELF CARE: Shower / Bathe Self Type of bathing: spongebathing Location of shower / bathe self: Sitting in manual wheelchair and Standing at grab bar Tasks completed: all components Components that required assistance (if applicable): MAX ASSIST RIGHT ARM and MAX ASSIST BUTTOCKS Overall assist level: Partial / moderate assistance: Less than half (1% - 49%) Adaptive equipment (if applicable): no assistive device Additional documentation: MOD assist overall. Buttock component completed in standing. Oral Hygiene Location of oral hygiene: Sitting in manual wheelchair Overall assist level: Set-up / clean up assistance Additional documentation: Assist for item retrieval. Patient manages toothbrush/paste. Other Grooming Tasks Location of other grooming tasks: Sitting in manual wheelchair Tasks completed: COMBING HAIR and APPLYING DEODORANT Overall assist level: Set-up / clean up assistance Additional documentation: assist for item retrieval and container management. UE Dressing Location of UE dressing: Sitting in manual wheelchair Tasks completed: Sweatshirt and Undershirt Overall assist level: Partial / moderate assistance: Less than half (1% - 49%) Additional documentation: MIN A OVERALL . MIN assist to pull shirt down in back LE Dressing (Underwear / Pants) Location of LE dressing (Underwear / Pants): Sitting in manual wheelchair and Standing at grab bar Tasks completed: Elastic waist pants and Incontinence briefs as underwear Overall assist level: Substantial / maximal assistance: More than half (50% - 99%) Additional documentation: MAX assist overall. Assist for threading components bilaterally and hip components in standing. Patient initiates attempting hip components without cues from therapist. Putting On / Taking Off Footwear Location of putting on / taking off footwear: Sitting in manual wheelchair Tasks completed: Sock(s) and Slip-on shoe(s) Overall assist level: Substantial / maximal assistance: More than half (50% - 99%) Additional documentation: MAX A overall. MOBILITY: Transfers: Min assist for stand pivot from recliner to w/c using rasheed aide. MIN A sit<>stand from w/c atgrab bar. HEARING / SPEECH / VISION: Expression of ideas and wants Overall assist level: WITHOUT DIFFICULTY Understanding verbal and non-verbal content Overall assist level: UNDERSTANDS Caregiver present (yes / no): No Education & training provided: Role of OT, OT plan of care, ADL training, Functional transfer training, Balance training, and Safety education ASSESSMENT: Activity tolerance / response to OT: GOOD PARTICIPATION, GOOD MOTIVATION, and RECEPTIVE TO EDUCATION / TRAINING Progress towards goals: Please refer to Care Plan from this date for progress towards individual goals. PLAN: Therapy Plan: Please refer to most recent Inpatient Rehabilitation Team Conference note for discharge plan, including location, recommended level of supervision, and arrangements. Frequency of therapy: BID SESSIONS 5 DAYS / WEEK TO ADDRESS PREVIOUSLY ESTABLISHED DEFICITS AND GOALS Rosalia Marinelli, OT 01/04/24 Krystle Cruz, OT 01/05/24 * Mai, Madie, DIRECTOR OF RECRUITING - 01/05/2024 11:20 AM CDT Physical Therapy PT PROGRESS NOTE Gunjan Gtz Jr. 78 y.o. 1945 Past Medical History: Diagnosis Date Acute gastric [...] delayed healing, subsequent encounter Clotting disorder (CMS/HCC) (HCC) Complex tear of medial meniscus of left knee as current injury Complex tear of medial meniscus of right knee as current injury Cramps of lower extremity Diverticulitis of colon Easy bruisability Fatigue Frequent urination Gastroesophageal reflux disease GERD Hypothyroidism Incontinence of urine Muscle weakness Osteoarthritis Osteoarthritis Peptic ulcer Peptic ulcer disease Seizures (HCC) 1997 last seizure in 1997 SOB (shortness of breath) on exertion Subchondral insufficiency fracture of condyle of left femur (CMS/HCC) (HCC) Vertigo Vision changes Visual disturbance hx of double vision, corrective lenses Past Surgical History: Procedure Laterality Date CATARACT EXTRACTION, BILATERAL Bilateral 2018 HERNIA REPAIR 1980 Hiatal Hernia repair KNEE ARTHROSCOPY Bilateral THYROIDECTOMY 12/27/2019 Patient Active Problem List Diagnosis Primary osteoarthritis of both knees Subchondral insufficiency fracture of condyle of left femur (CMS/HCC) (HCC) Closed fracture of left tibial plateau with delayed healing Closed fracture of right tibial plateau with delayed healing Closed nondisplaced osteochondral fracture of left patella with delayed healing Closed osteochondral fracture of patella, right, with delayed healing, subsequent encounter Complex tear of medial meniscus of right knee as current injury Complex tear of medial meniscus of left knee as current injury Goiter Breast pain, right Cataract of right eye Diplopia Esotropia Hypertropia of right eye Skin lesion of breast Edema Intermittent claudication (HCC) Iron deficiency anemia Peripheral vascular disease (HCC) Pain due to total right knee replacement (CMS/HCC) (HCC) Hamstring tendinitis of right thigh Quadriceps weakness Idiopathic peripheral neuropathy Abnormality of gait and mobility Hx of total knee replacement, right Neuropathy (CMS/HCC) 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 Biceps tendinitis of left upper extremity Tear of left glenoid labrum Coffee ground emesis Upper GI bleed Acquired hypothyroidism Acute blood loss anemia Lung nodule Nocturnal cough Hiatal hernia Infrarenal abdominal aortic aneurysm (AAA) without rupture (HCC) Acute CVA (cerebrovascular accident) (HCC) Moderate malnutrition (CMS/HCC) Primary osteoarthritis of left knee TIME IN: 1110 TIME OUT: 1205 SUBJECTIVE I'm anxious to go home. Patient agreeable to therapy. MENTAL STATUS/ORIENTATION: Alert and oriented x4 PAIN: Pre-therapy pain level: none Pain location: na Pain intervention: lidocaine patch applied to L shoulder at session start Post-therapy pain level/response to intervention: no complaints / fatigued OBJECTIVE PRECAUTIONS: fall APPEARANCE/POSTURE: present in therapy gym, seated in w/c, chair alarm active, lap tray intact MOBILITY DOCUMENTATION: Bed Mobility: NT Transfers: sit <> stand from W/C and chair with arm rests, recliner with CG assist. Good control during descent. Ambulation: 20' + 25' with rasheed-aide and MIN assist; Step through pattern, short step length, increased L lean during second bout. Stairs: NT Wheelchair management & propulsion: 20' forward with turns. Independent, mild L foot drag but corrects. TREATMENT: Seated HEP with #2 ankle weights x 15 reps KATELIN AP, AC, hip int rot / ext rot, LAQ, hip ADD squeezes on ball, marching V/C regarding fully extending leg and pulling leg under chair for LAQ Patient performs 8:30 on recumbent bike and completes. 25 miles. Slow pace, 3 brief rest breaks. Purple thera band tied above the knee to prevent excessive ABD on L LE. Appearance/Posture at end of treatment session: returned to room, seated in recliner with chair alarm active, call light in reach, lunch tray set up. EDUCATION: PATIENT/FAMILY EDUCATION: seated HEP review Response to Education: demonstrated understanding and verbalizes understanding ASSESSMENT Activity tolerance/response to PT: GOOD Patient completes all task this date; slow to complete. Fatigued, cooperative. Improved recall of seated HEP. Barriers to learning: Physical and Cognitive Barriers to discharge: Limited family support, Cognitive deficit, Limited insight into deficits, Unrealistic expectations, Decreased endurance, Decreased proprioception, Upper extremity weakness, Lower extremity weakness, and Stairs at home Patient continues progressing toward previously set goals which remain appropriate at this time. PLAN Patient to be seen bid 5x/week to address previously established deficits and goals. * Becky Montana MD - 01/05/2024 10:40 AM CDT INPATIENT REHABILITATION DAILY PROGRESS NOTE CHIEF COMPLAINT: right posterior limb internal capsule infarct SUBJECTIVE: No needs. Wants to leave by 10am on Wednesday. OBJECTIVE: VITALS: Vitals: 01/04/24 0704 01/04/24 1931 01/05/24 0746 01/05/24 0842 BP: 117/66 143/67 127/70 BP Location: Right arm Right arm Patient Position: Sitting Sitting Pulse: 66 60 79 Resp: 20 18 19 Temp: 36.4 ??C (97.5 ??F) 36.6 ??C (97.9 ??F) 36.6 ??C (97.9 ??F) TempSrc: Oral Oral SpO2: 96% 99% 95% 95% Weight: Height: PHYSICAL EXAM: General: no acute distress, in recliner HEENT: normocephalic, trachea midline Heart: rrr Lungs: ctab GI: soft, nontender Neuro: awake, alert LABS/RADIOLOGY/DIAGNOSTIC REVIEW Recent Labs Lab Units 01/03/24 0423 WBC K/cumm 8.0 HEMOGLOBIN g/dL 11.7* HEMATOCRIT % 35.6* PLATELETS K/cumm 228 Recent Labs Lab Units 01/03/24 0423 SODIUM mmol/L 141 POTASSIUM PLASMA mmol/L 4.2 CHLORIDE mmol/L 108 CO2 mmol/L 26 ANIONGAP mmol/L 7 GLUCOSE mg/dL 105 BUN SERUM mg/dL 12 CREATININE mg/dL 1.22 CALCIUM mg/dL 8.9 ALBUMIN g/dL 3.0* ALK PHOS Units/L 100 ALT Units/L 23 AST Units/L 19 BILIRUBIN TOTAL mg/dL 0.3 Recent Labs Lab Units 01/03/24 0423 GLUCOSE mg/dL 105 OT Functional Mobility: 12/20 Functional transfers: MOD-MAX OT Self Care: 12/20 Bathing: MAX Grooming: MAX UB dress:MOD LB dress: MAX Footwear: MAX Toileting:TOTAL NUMEROLOGIST Cognition: Mild/moderate cognitive deficits in short-term memory, insight, and problem solving/reasoning. Left visual inattention. NUMEROLOGIST Communication: Mild dysarthria NUMEROLOGIST Swallowing: Tolerating regular diet with thin liquids PT Functional Mobility: 01/04/24: Bed Mobility: supine to and from sit from elevated surface and left side as patient reports this is the side he gets up on at home. Patient performed with supervisionassist. Transfers: sit to and and from stand CG assist except one standing attempt patient with posterior left lean and needed to sit back down to regain balance before attempting again. Ambulation: rasheed-aid 15'x1, 18'x1 with generally CG assist, patient with 1 episode of left knee buckling which patient needed min assist to regain balance. Patient with downward gaze, decreased gertrudis, step to gait pattern, decreased heel strike and push off KATELIN, narrow SHANA. Stairs: one step with rasheed-aid and min assist of 1 when descending due to left knee weakness. Wheelchair management & propulsion: using KATELIN LE's and right UE 160'x1 and supervision assist with increased time to complete task. No results found. MEDICATIONS: Current Facility-Administered Medications: acetaminophen (TYLENOL) tablet 650 mg, 650 mg, oral, Q6H PRN, Becky Montana MD, 650 mg at 01/05/24 0849 albuterol HFA (PROVENTIL HFA,VENTOLIN HFA,PROAIR HFA) 90 mcg/actuation inhaler 2 puff, 2 puff, inhalation, Q4H PRN (RT), Becky Montana MD ascorbic acid (VITAMIN C) tablet/chewable tablet 500 mg, 500 mg, oral, BID, Jl Montana MD, 500 mg at 01/05/24 0849 aspirin chewable tablet 81 mg, 81 mg, oral, Daily, Becky Montana MD, 81 mg at 01/05/24 0849 calcium carbonate (TUMS) chewable tablet 1,000 mg, 400 mg of elemental calcium, oral, TID PRN, Becky Montana MD cetirizine (ZyrTEC) tablet 10 mg, 10 mg, oral, Daily, Becky Montana MD, 10 mg at 01/05/24848 donepeziL (ARICEPT) tablet 10 mg, 10 mg, oral, Nightly, Becky Montana MD, 10 mg at 01/04/242031 enoxaparin (LOVENOX) syringe 40 mg, 40 mg, subcutaneous, Daily-2100, Becky Rudd MD, 40 mg at 01/04/242032 fluticasone furoate-vilanteroL (BREO ELLIPTA) 100-25 mcg/dose inhaler 1 puff, 1 puff, inhalation, Daily (RT), Becky Montana MD, 1 puff at 01/05/24 0842 fluticasone propionate (FLONASE) 50 mcg/actuation nasal spray 1 spray, 1 spray, each nostril, BID, Becky Montana MD, 1 spray at 01/05/24855 gabapentin (NEURONTIN) capsule 300 mg, 300 mg, oral, TID, Becky Montana MD, 300 mg at 01/05/24 0849 guaiFENesin ER (MUCINEX) extended release tablet 600 mg, 600 mg, oral, BID, Jl Montana MD, 600 mg at 01/05/24 0849 hydrocortisone 2.5 % cream, , topical, BID, Becky Montana MD, Given at 01/05/24 0856 levothyroxine (SYNTHROID) tablet 150 mcg, 150 mcg, oral, Daily - 0600, Becky Rudd MD, 150 mcg at 01/05/24 0634 lidocaine (LIDODERM) 5 % patch 1 patch, 1 patch, transdermal, Q24H, Becky Rudd MD, 1 patch at 01/05/24 0849 ofloxacin (OCUFLOX) 0.3 % ophthalmic solution 1 drop, 1 drop, each eye, Daily PRN, Becky Montana MD ondansetron (ZOFRAN) tablet 4 mg, 4 mg, oral, TID PRN, Becky Montana MD pantoprazole DR (PROTONIX) extended release tablet 40 mg, 40 mg, oral, BID, Jl Montana MD, 40 mg at 01/05/24 0849 ramelteon (ROZEREM) tablet 8 mg, 8 mg, oral, Nightly PRN, Becky Montana MD, 8 mg at 01/04/242032 rosuvastatin (CRESTOR) tablet 40 mg, 40 mg, oral, Daily, Becky Montana MD, 40 mg at 01/05/24 0849 senna-docusate (PERICOLACE) 8.6-50 mg per tablet 1 tablet, 1 tablet, oral, BID PRN, Becky Montana MD, 1 tablet at 01/04/24 125 simethicone (MYLICON) chewable tablet 80 mg, 80 mg, oral, TID PRN, Becky Rudd MD tamsulosin (FLOMAX) extended release capsule 0.4 mg, 0.4 mg, oral, Nightly, Jl Montana MD, 0.4 mg at 01/04/242031 tiZANidine (ZANAFLEX) tablet 2 mg, 2 mg, oral, TID PRN, Becky Montana MD, 2 mg at 12/27/232025 traMADoL (ULTRAM) tablet 50 mg, 50 mg, oral, Q6H PRN, Becky Montana MD, 50 mg at 01/03/24 4136 ASSESSMENT/PLAN: MEDICAL PLAN OF CARE: 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 Reviewed home medicine - on spironolactone 25mg and lasix 20mg 12/26: controlled 12/27: controlled 12/28: controlled 12/29: controlled 12/30:controlled 01/02:controlled 01/03: controlled 01/04: controlled HLD: continue rosuvastatin 40mg AAA: no current medications Hypothyroidism: continue levothyroxine 150mcg GERD: continue pantoprazole 40mg bid Alzheimer: continue donepezil 10mg qhs Depression: no current medications Asthma: continue breo ellipta 100-25 daily BPH: continue flomax 0.4mg qhs 12/23: reviewed home medications - on oxybutynin 15mg and gemtesa 75mg for overactive bladder - hold for now Neuropathy: continue gabapentin 300mg tid Pain: Start Tylenol 650mg q6h prn, oxycodone 5mg q4h prn 12/22: lidoderm patch, decrease frequency of oxycodone to q6h prn 12/23: reviewed home medications, dc oxycodone and start tramadol 50mg q6h pr/: heat/ice prn to left elbow Bowels: Start miralax daily, pericolace bid prn, simethicone prn 12/16: dulcolax 10mg x1 12/29: dc miralax Nausea: Start Zofran prn, Tums prn Congestion: start mucinex 600mg bid 12/23: start home cetirizine 10mg 12/26: start flonase bid 01/02: add vitamin c 500mg bid Knee pain: consult to orthopedics for injection per patient request 12/29 received injection yesterday Rash: hydrocortisone cream bid to right hand Diet: Reg/Thin HH 2G Na DVT ppx: restart lovenox Precautions: Fall Weightbearing status: full Code: Full Code Care discussed with Nursing Reviewed vital signs, intake, bowel, and bladder - as above Case conference today, refer to note for further information REHAB PLAN OF CARE: Patient's expected intensity and duration of participation in the interdisciplinary rehabilitation program and disciplines that comprise this team: Therapies required to achieve goals:The patient will benefit from integrated coordination of care from the following interdisciplinary services: Medical Supervision, 24 hours Rehabilitation Nursing, Physical Therapy, Occupational Therapy, Case Management; Social Work; Therapeutic Recreation; SpeechTherapy; Flatwork Feeder Frequency and duration of therapies expect to be:Expected intensity and frequency of participation in the interdisciplinary rehab program is: 3 hours per day except Wednesday. Expected intensity and frequency of Physical Therapy (PT): 1.5 hours per day over 5-7 days for the duration of length of stay Expected intensity and frequency of Occupational Therapy (OT): 1.5 hours per day over 5-7 days per week for the duration of length of stay Expected intensity and frequency of Speech Therapy (NUMEROLOGIST): 1 hour per day per day over 5-7 days per week for the duration of length of stay FUNCTIONAL CHANGE: Amb 35' rasheed-aid cga/Ole DISCHARGE PLANNING: Expected Discharge Date: Saturday 01/06 with home health PT OT Equipment: TBD Family Training: SW to set up Education: Follow up Appointments: PCP 1-2 weeks Becky Montana MD Physical Medicine and Rehabilitation I can be reached from 7am-7pm through [employer]. Hospitalist forest fire prevention manager from 7pm-7am * Paresh Prieto SLP - 01/05/2024 9:59 AM CDT SPEECH LANGUAGE PATHOLOGY PROGRESS NOTE Patient's Name: Gunjan Gtz Jr. : 1945 Age: 78 y.o. Time In: 9:34 Time Out: 10:01 Patient Active Problem List Diagnosis Primary osteoarthritis of both knees Subchondral insufficiency fracture of condyle of left femur (CMS/HCC) ([facility]) Closed fracture of left tibial plateau with delayed healing Closed fracture of right tibial plateau with delayed healing Closed nondisplaced osteochondral fracture of left patella with delayed healing Closed osteochondral fracture of patella, right, with delayed healing, subsequent encounter Complex tear of medial meniscus of right knee as current injury Complex tear of medial meniscus of left knee as current injury Goiter Breast pain, right Cataract of right eye Diplopia Esotropia Hypertropia of right eye Skin lesion of breast Edema Intermittent claudication ([facility]) Iron deficiency anemia Peripheral vascular disease (HCC) Pain due to total right knee replacement (CMS/HCC) ([facility]) Hamstring tendinitis of right thigh Quadriceps weakness Idiopathic peripheral neuropathy Abnormality of gait and mobility Hx of total knee replacement, right Neuropathy (CMS/HCC) 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 Biceps tendinitis of left upper extremity Tear of left glenoid labrum Coffee ground emesis Upper GI bleed Acquired hypothyroidism Acute blood loss anemia Lung nodule Nocturnal cough Hiatal hernia Infrarenal abdominal aortic aneurysm (AAA) without rupture ([facility]) Acute CVA (cerebrovascular accident) ([facility]) Moderate malnutrition (CMS/[facility]) Primary osteoarthritis of left knee Past Medical History: Diagnosis Date Acute gastric ulcer without hemorrhage or perforation Ulcer, gastric, acute - (Added by TW Conv) Alzheimer's dementia ([facility]) Asthma Back pain Cataract Closed fracture of left tibial plateau with delayed healing Closed fracture of right tibial plateau with delayed healing Closed nondisplaced osteochondral fracture of left patella with delayed healing Closed osteochondral fracture of patella, right, with delayed healing, subsequent encounter Clotting disorder (CMS/HCC) ([facility]) Complex tear of medial meniscus of left knee as current injury Complex tear of medial meniscus of right knee as current injury Cramps of lower extremity Diverticulitis of colon Easy bruisability Fatigue Frequent urination Gastroesophageal reflux disease GERD Hypothyroidism Incontinence of urine Muscle weakness Osteoarthritis Osteoarthritis Peptic ulcer Peptic ulcer disease Seizures ([facility]) 1997 last seizure in 1997 SOB (shortness of breath) on exertion Subchondral insufficiency fracture of condyle of left femur (CMS/HCC) ([facility]) Vertigo Vision changes Visual disturbance hx of double vision, corrective lenses Past Surgical History: Procedure Laterality Date CATARACT EXTRACTION, BILATERAL Bilateral 2018 HERNIA REPAIR 1980 Hiatal Hernia repair KNEE ARTHROSCOPY Bilateral THYROIDECTOMY 12/27/2019 SUBJECTIVE MENTAL STATUS: Patient awake and cooperative, resting in recliner. In good spirits. Reports being ready to go home. PAIN: Pre Therapy Pain Level: 0/10 Pain Location: N/A Pain Intervention: N/A Post Therapy Pain Level/Response to Intervention: 0/10 OBJECTIVE PRECAUTIONS: Fall SWALLOWING: Patient continues to tolerate regular consistency diet/thin liquids. Mild anterior spillage from left side of oral cavity of secretions intermittently. COGNITION: Decreased short term memory, insight, and thought organization COMMUNICATION: Mild dysarthric speech TREATMENT ACTIVITIES: Provide appropriate solutions to safety situations with 60% accuracy Recall safety precautions with 80% accuracy Conversational task with 95% intelligibility EDUCATION: PATIENT/FAMILY EDUCATION: Discussed discharge date and plans with patient Response to Education: Understanding verbalized, Needs reinforcement ASSESSMENT Activity Tolerance/Response to S.T.: Tolerated speech therapy session with no complaints Barriers to learning: Vision, Cognition Current status: Mild/moderate cognitive deficits in memory and safety awareness Progress toward goals: Patient continues to progress toward previously set goals which remain appropriate at this time. PLAN Multi-Disciplinary Problems (from Speech Therapy) Active Problems Problem: NUMEROLOGIST [facility] [place]: 12/16/23 Goal Start Date Expected End Date End Date [facility] 1 12/16/23 01/06/24 -- Goal Details: Patient to perform short term memory tasks using compensatory strategies with 80% accuracy. Goal Start Date Expected End Date End Date [facility] 2 12/16/23 01/06/24 -- Goal Details: Patient to perform functional problem solving/reasoning tasks with 80% accuracy. Goal Start Date Expected End Date End Date [facility] 3 12/16/23 01/06/24 -- Goal Details: Patient to attend to left visual field 80% of the time given 2-3 verbal prompts. Goal Start Date Expected End Date End Date [facility] 4 12/16/23 01/06/24 -- Goal Details: Patient's speech to be 90% intelligible during conversational tasks utilizing compensatory strategies. Frequency of Treatment: OD, 5xs weekly Recommendations: Recommend home with 24 hour supervision at discharge If this is the last note, consider this the discharge summary. * Kay Aviles PTA - 01/04/2024 2:53 PM CDT Physical Therapy PT PROGRESS NOTE Gunjan Gtz 78 y.o. 1945 Past Medical History: Diagnosis Date Acute gastric [...] delayed healing, subsequent encounter Clotting disorder (CMS/HCC) (HCC) Complex tear of medial meniscus of left knee as current injury Complex tear of medial meniscus of right knee as current injury Cramps of lower extremity Diverticulitis of colon Easy bruisability Fatigue Frequent urination Gastroesophageal reflux disease GERD Hypothyroidism Incontinence of urine Muscle weakness Osteoarthritis Osteoarthritis Peptic ulcer Peptic ulcer disease Seizures (HCC) 1997 last seizure in 1997 SOB (shortness of breath) on exertion Subchondral insufficiency fracture of condyle of left femur (CMS/HCC) ([facility]) Vertigo Vision changes Visual disturbance hx of double vision, corrective lenses Past Surgical History: Procedure Laterality Date CATARACT EXTRACTION, BILATERAL Bilateral 2018 HERNIA REPAIR 1979 Hiatal Hernia repair KNEE ARTHROSCOPY Bilateral THYROIDECTOMY 12/27/2019 Patient Active Problem List Diagnosis Primary osteoarthritis of both knees Subchondral insufficiency fracture of condyle of left femur (CMS/HCC) (HCC) Closed fracture of left tibial plateau with delayed healing Closed fracture of right tibial plateau with delayed healing Closed nondisplaced osteochondral fracture of left patella with delayed healing Closed osteochondral fracture of patella, right, with delayed healing, subsequent encounter Complex tear of medial meniscus of right knee as current injury Complex tear of medial meniscus of left knee as current injury Goiter Breast pain, right Cataract of right eye Diplopia Esotropia Hypertropia of right eye Skin lesion of breast Edema Intermittent claudication (HCC) Iron deficiency anemia Peripheral vascular disease (HCC) Pain due to total right knee replacement (CMS/HCC) (HCC) Hamstring tendinitis of right thigh Quadriceps weakness Idiopathic peripheral neuropathy Abnormality of gait and mobility Hx of total knee replacement, right Neuropathy (CMS/HCC) 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 Biceps tendinitis of left upper extremity Tear of left glenoid labrum Coffee ground emesis Upper GI bleed Acquired hypothyroidism Acute blood loss anemia Lung nodule Nocturnal cough Hiatal hernia Infrarenal abdominal aortic aneurysm (AAA) without rupture (HCC) Acute CVA (cerebrovascular accident) (HCC) Moderate malnutrition (CMS/HCC) Primary osteoarthritis of left knee TIME IN: 14:25 TIME OUT: 15:15 SUBJECTIVE Patient stated they were supposed to be coming to take me to the bathroom MENTAL STATUS/ORIENTATION: Alert and oriented x4 PAIN: Pre-therapy pain level: 0/10 Pain location: n/a Pain intervention: none needed at this time Post-therapy pain level/response to intervention: 0/10 OBJECTIVE PRECAUTIONS: fall risk APPEARANCE/POSTURE: patient sitting in wheelchair, alarm in place, call button in reach. MOBILITY DOCUMENTATION: Transfers sit to and from stand with CG assist. Transfers wheelchair to and from commode with use of grab bar with CG/Min assist with cues for safety. Patient needing mod assist for clothing management for toileting, performed hygiene supervision assist. Ambulates with rasheed-aid and left arm in sling 35'x1, 28'x1 CG/Min assist with deviations as in a.m. Wheelchair propulsion straight planes and turns with supervision assist 50'x1. Transfers wheelchair to recliner chair stand pivot transfer with CG assist. TREATMENT: Dynamic balance standing reaching across midline to retrieve pimentel bags and perform pimentel bag toss. Patient stands for 3 minutes with Fair+ balance and no UE supported. Patient stands with left knee slightly bent. Nu-Step performed seat 9, no arms, load 6, for 10 minutes 20 seconds and 281 steps. Appearance/Posture at end of treatment session: patient sitting in recliner chair, alarm in place, call button in reach. EDUCATION: PATIENT/FAMILY EDUCATION: patient educated on balance while performing clothing management, transfers, and safety. Response to Education: needs reinforcement and verbalizes understanding ASSESSMENT Activity tolerance/response to PT: patient needing increased time on commode to have continent episode of BM. Barriers to learning: Physical Barriers to discharge: Limited safety awareness, Decreased endurance, Upper extremity weakness, andLower extremity weakness Patient continues progressing toward previously set goals which remain appropriate at this time. PLAN Patient to be seen bid 5x/week to address previously established deficits and goals. * Rosalia Marinelli, OT - 01/04/2024 1:45 PM CDT Occupational Therapy NOTE TYPE: OT TREATMENT ([facility] DEPARTMENT SESSION) PATIENT'S NAME: Gunjan Gtz Jr. AGE / SEX: 78 y.o. / male ROOM: [place] [id number] : 1945 DATE: 01/04/24 TIME IN: 1345 TIME OUT: 1408 Patient Active Problem List Diagnosis Primary osteoarthritis of both knees Subchondral insufficiency fracture of condyle of left femur (CMS/HCC) ([facility]) Closed fracture of left tibial plateau with delayed healing Closed fracture of right tibial plateau with delayed healing Closed nondisplaced osteochondral fracture of left patella with delayed healing Closed osteochondral fracture of patella, right, with delayed healing, subsequent encounter Complex tear of medial meniscus of right knee as current injury Complex tear of medial meniscus of left knee as current injury Goiter Breast pain, right Cataract of right eye Diplopia Esotropia Hypertropia of right eye Skin lesion of breast Edema Intermittent claudication ([facility]) Iron deficiency anemia Peripheral vascular disease ([facility]) Pain due to total right knee replacement (CMS/HCC) ([facility]) Hamstring tendinitis of right thigh Quadriceps weakness Idiopathic peripheral neuropathy Abnormality of gait and mobility Hx of total knee replacement, right Neuropathy (CMS/HCC) 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 Biceps tendinitis of left upper extremity Tear of left glenoid labrum Coffee ground emesis Upper GI bleed Acquired hypothyroidism Acute blood loss anemia Lung nodule Nocturnal cough Hiatal hernia Infrarenal abdominal aortic aneurysm (AAA) without rupture ([facility]) Acute CVA (cerebrovascular accident) ([facility]) Moderate malnutrition (CMS/HCC) Primary osteoarthritis of left knee Past Medical History: Diagnosis Date Acute gastric ulcer without hemorrhage or perforation Ulcer, gastric, acute - (Added by TW Conv) Alzheimer's dementia ([facility]) Asthma Back pain Cataract Closed fracture of left tibial plateau with delayed healing Closed fracture of right tibial plateau with delayed healing Closed nondisplaced osteochondral fracture of left patella with delayed healing Closed osteochondral fracture of patella, right, with delayed healing, subsequent encounter Clotting disorder (CMS/HCC) ([facility]) Complex tear of medial meniscus of left knee as current injury Complex tear of medial meniscus of right knee as current injury Cramps of lower extremity Diverticulitis of colon Easy bruisability Fatigue Frequent urination Gastroesophageal reflux disease GERD Hypothyroidism Incontinence of urine Muscle weakness Osteoarthritis Osteoarthritis Peptic ulcer Peptic ulcer disease Seizures ([facility]) 1997 last seizure in 1997 SOB (shortness of breath) on exertion Subchondral insufficiency fracture of condyle of left femur (CMS/HCC) (HCC) Vertigo Vision changes Visual disturbance hx of double vision, corrective lenses Past Surgical History: Procedure Laterality Date CATARACT EXTRACTION, BILATERAL Bilateral 2018 HERNIA REPAIR 1980 Hiatal Hernia repair KNEE ARTHROSCOPY Bilateral THYROIDECTOMY 12/27/2019 PRECAUTIONS (INCLUDING WEIGHT-BEARING): Fall risk and Bed / chair alarm SUBJECTIVE: I need a manual for this wheelchair THERAPY PAIN: PRE-THERAPY PAIN LEVEL: 4 / 10 PAIN LOCATION: L shoulder PAIN INTERVENTION(S): Repositioned POST-THERAPY PAIN LEVEL: 4 / 10 PAIN SCALE USED: 0-10 SCALE OBJECTIVE: APPEARANCE: PRESENTATION UPON OT ARRIVAL: PATIENT Sitting in bedside recliner PRESENTATION UPON OT DEPARTURE: PATIENT Sitting in manual wheelchair at bedside BED / CHAIR ALARM IN PLACE AND ACTIVATED UPON OT DEPARTURE: Yes CALL LIGHT WITHIN ARMS REACH OF PATIENT AT END OF SESSION: Yes COMPLETED PATIENT HANDOFF AND NOTIFIED Physical Therapist / Physical Therapist Human Resources Clerk, NAME: Shannan, OF PATIENT'S LOCATION AND FUNCTIONAL STATUS UPON COMPLETION OF SESSION COGNITIVE / PERCEPTUAL: Alert and oriented to conversation UE THERAPEUTIC EXERCISES: EXERCISE TYPE: R UE STRENGTHENING USING 3 # HAND/WRIST WEIGHTS EXERCISE(S) COMPLETED WITH NUMBER OF REPETITIONS: SHOULDER FLEXION 10 , SHOULDER EXTENSION 10 , SHOULDER INTERNAL ROTATION 10, SHOULDER EXTERNAL ROTATION 10, CHEST PRESS 10, ELBOW FLEXION 10, ELBOW EXTENSION 10 , WRIST FLEXION 10, WRIST EXTENSION 10, FOREARM SUPINATION 10, and FOREARM PRONATION 10 NUMBER OF SETS: 1 ASSIST LEVEL: MIN verbal cues LOCATION OF COMPLETION: seated in w/c TOLERANCE: Good tolerance to exercises with no c/o pain or fatigue UE THERAPEUTIC EXERCISES: EXERCISE TYPE: L UE SROM EXERCISE(S) COMPLETED WITH NUMBER OF REPETITIONS: SHOULDER FLEXION 10 , ELBOW FLEXION 10, ELBOW EXTENSION 10 , WRIST FLEXION 10, and WRIST EXTENSION 10 NUMBER OF SETS: 1 ASSIST LEVEL: MIN physical assistance LOCATION OF COMPLETION: seated in w/c TOLERANCE: Patient required min assist for correct hand positioning when completing SROM MOBILITY: TRANSFERS: Min assist for stand pivot from recliner to w/c with rasheed aide CAREGIVER PRESENT (YES / NO): No EDUCATION & TRAINING PROVIDED: Role of OT, OT plan of care, Functional transfer training, and UE home exercise program ASSESSMENT: ACTIVITY TOLERANCE / RESPONSE TO OT: GOOD PARTICIPATION, GOOD MOTIVATION, and RECEPTIVE TO EDUCATION / TRAINING PROGRESS TOWARDS GOALS: PLEASE REFER TO CARE PLAN FROM THIS DATE FOR PROGRESS TOWARDS INDIVIDUAL GOALS PLAN: PLEASE REFER TO MOST RECENT INPATIENT REHABILITATION TEAM CONFERENCE NOTE FOR DISCHARGE PLAN, INCLUDING LOCATION, RECOMMENDED LEVEL OF SUPERVISION AND ARRANGEMENTS. FREQUENCY OF THERAPY: BID SESSIONS 5 DAYS / WEEK TO ADDRESS PREVIOUSLY ESTABLISHED DEFICITS AND GOALS Rosalia Marinelli OT 01/04/24 * Ella Carter, NUMEROLOGIST - 01/04/2024 1:22 PM CDT SPEECH LANGUAGE PATHOLOGY PROGRESS NOTE Patient's Name: Gunjan Gtz Jr. : 1945 Age: 78 y.o. Time In: 12:55 Time Out: 13:20 Patient Active Problem List Diagnosis Primary osteoarthritis of both knees Subchondral insufficiency fracture of condyle of left femur (CMS/HCC) (HCC) Closed fracture of left tibial plateau with delayed healing Closed fracture of right tibial plateau with delayed healing Closed nondisplaced osteochondral fracture of left patella with delayed healing Closed osteochondral fracture of patella, right, with delayed healing, subsequent encounter Complex tear of medial meniscus of right knee as current injury Complex tear of medial meniscus of left knee as current injury Goiter Breast pain, right Cataract of right eye Diplopia Esotropia Hypertropia of right eye Skin lesion of breast Edema Intermittent claudication (HCC) Iron deficiency anemia Peripheral vascular disease (HCC) Pain due to total right knee replacement (CMS/HCC) (HCC) Hamstring tendinitis of right thigh Quadriceps weakness Idiopathic peripheral neuropathy Abnormality of gait and mobility Hx of total knee replacement, right Neuropathy (CMS/HCC) 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 Biceps tendinitis of left upper extremity Tear of left glenoid labrum Coffee ground emesis Upper GI bleed Acquired hypothyroidism Acute blood loss anemia Lung nodule Nocturnal cough Hiatal hernia Infrarenal abdominal aortic aneurysm (AAA) without rupture (HCC) Acute CVA (cerebrovascular accident) (HCC) Moderate malnutrition (CMS/HCC) Primary osteoarthritis of left knee Past Medical History: Diagnosis Date Acute gastric [...] delayed healing, subsequent encounter Clotting disorder (CMS/HCC) ([facility]) Complex tear of medial meniscus of left knee as current injury Complex tear of medial meniscus of right knee as current injury Cramps of lower extremity Diverticulitis of colon Easy bruisability Fatigue Frequent urination Gastroesophageal reflux disease GERD Hypothyroidism Incontinence of urine Muscle weakness Osteoarthritis Osteoarthritis Peptic ulcer Peptic ulcer disease Seizures ([facility]) 1997 last seizure in 1997 SOB (shortness of breath) on exertion Subchondral insufficiency fracture of condyle of left femur (CMS/HCC) ([facility]) Vertigo Vision changes Visual disturbance hx of double vision, corrective lenses Past Surgical History: Procedure Laterality Date CATARACT EXTRACTION, BILATERAL Bilateral 2018 HERNIA REPAIR 1979 Hiatal Hernia repair KNEE ARTHROSCOPY Bilateral THYROIDECTOMY 12/27/2019 SUBJECTIVE MENTAL STATUS: Awake, lethargic, resting in recliner PAIN: Pre Therapy Pain Level:0/10 Pain Location:NA Pain Intervention:NA Post Therapy Pain Level/Response to Intervention:0/10 OBJECTIVE PRECAUTIONS: Fall precautions SWALLOWING: Tolerating regular diet with thin liquids COGNITION: Decreased short-term memory, insight, and thought organization COMMUNICATION: Mild dysarthric speech TREATMENT ACTIVITIES: Recall daily events with 100% accuracy independently Identify wrong category member with 80% accuracy independently, increased to 100% accuracy given 1 repetition EDUCATION: PATIENT/FAMILY EDUCATION: Discussed discharge date Response to Education: Verbalized understanding ASSESSMENT Activity Tolerance/Response to S.T.: Tolerated therapy with no complaints Barriers to learning: Vision, Cognition Current status: Patient able to recall daily events with 100% accuracy Progress toward goals: Patient continues to progress toward previously set goals which remain appropriate at this time. PLAN Multi-Disciplinary Problems (from Speech Therapy) Active Problems Problem: [facility] Start Date: 12/16/23 Goal Start Date Expected End Date End Date [facility] 1 12/16/23 01/06/24 -- Goal Details: Patient to perform short term memory tasks using compensatory strategies with 80% accuracy. Goal Start Date Expected End Date End Date [facility] 2 12/16/23 01/06/24 -- Goal Details: Patient to perform functional problem solving/reasoning tasks with 80% accuracy. Goal Start Date Expected End Date End Date [facility] 3 12/16/23 01/06/24 -- Goal Details: Patient to attend to left visual field 80% of the time given 2-3 verbal prompts. Goal Start Date Expected End Date End Date NUMEROLOGIST LTG - Mis 4 12/16/23 01/06/24 -- Goal Details: Patient's speech to be 90% intelligible during conversational tasks utilizing compensatory strategies. Frequency of Treatment: OD 5xs weekly Recommendations: Recommend home with 24 hour supervision at discharge If this is the last note, consider this the discharge summary. * Kay Aviles, MARQUEZ - 01/04/2024 12:08 PM CDT Physical Therapy PT PROGRESS NOTE Gunjan Gtz Jr. 78 y.o. 1945 Past Medical History: Diagnosis Date Acute gastric [...] delayed healing, subsequent encounter Clotting disorder (CMS/HCC) (HCC) Complex tear of medial meniscus of left knee as current injury Complex tear of medial meniscus of right knee as current injury Cramps of lower extremity Diverticulitis of colon Easy bruisability Fatigue Frequent urination Gastroesophageal reflux disease GERD Hypothyroidism Incontinence of urine Muscle weakness Osteoarthritis Osteoarthritis Peptic ulcer Peptic ulcer disease Seizures (HCC) 1997 last seizure in 1997 SOB (shortness of breath) on exertion Subchondral insufficiency fracture of condyle of left femur (CMS/HCC) (HCC) Vertigo Vision changes Visual disturbance hx of double vision, corrective lenses Past Surgical History: Procedure Laterality Date CATARACT EXTRACTION, BILATERAL Bilateral 2018 HERNIA REPAIR 1980 Hiatal Hernia repair KNEE ARTHROSCOPY Bilateral THYROIDECTOMY 12/27/2019 Patient Active Problem List Diagnosis Primary osteoarthritis of both knees Subchondral insufficiency fracture of condyle of left femur (CMS/HCC) (HCC) Closed fracture of left tibial plateau with delayed healing Closed fracture of right tibial plateau with delayed healing Closed nondisplaced osteochondral fracture of left patella with delayed healing Closed osteochondral fracture of patella, right, with delayed healing, subsequent encounter Complex tear of medial meniscus of right knee as current injury Complex tear of medial meniscus of left knee as current injury Goiter Breast pain, right Cataract of right eye Diplopia Esotropia Hypertropia of right eye Skin lesion of breast Edema Intermittent claudication (HCC) Iron deficiency anemia Peripheral vascular disease (HCC) Pain due to total right knee replacement (CMS/HCC) (HCC) Hamstring tendinitis of right thigh Quadriceps weakness Idiopathic peripheral neuropathy Abnormality of gait and mobility Hx of total knee replacement, right Neuropathy (CMS/HCC) 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 Biceps tendinitis of left upper extremity Tear of left glenoid labrum Coffee ground emesis Upper GI bleed Acquired hypothyroidism Acute blood loss anemia Lung nodule Nocturnal cough Hiatal hernia Infrarenal abdominal aortic aneurysm (AAA) without rupture (HCC) Acute CVA (cerebrovascular accident) (HCC) Moderate malnutrition (CMS/HCC) Primary osteoarthritis of left knee TIME IN: 11:08 TIME OUT: 11:55 SUBJECTIVE Patient stating I only have two more days and a wake up MENTAL STATUS/ORIENTATION: Alert and oriented x4 PAIN: Pre-therapy pain level: 0/10 Pain location: n/a Pain intervention: none needed at this time Post-therapy pain level/response to intervention: 0/10 OBJECTIVE PRECAUTIONS: fall risk APPEARANCE/POSTURE: patient sitting in wheelchair, alarm in place however not working properly, left lap tray in place. MOBILITY DOCUMENTATION: Bed Mobility: supine to and from sit from elevated surface and left side as patient reports this isthe side he gets up on at home. Patient performed with supervision assist. Transfers: sit to and and from stand CG assist except one standing attempt patient with posterior left lean and needed to sit back down to regain balance before attempting again. Transfers wheelchairto recliner chair with rasheed-aid and CG assist. Ambulation: rasheed-aid 15'x1, 18'x1 with generally CG assist, patient with 1 episode of left knee buckling which patient needed min assist to regain balance. Patient with downward gaze, decreased gertrudis, step to gait pattern, decreased heel strike and push off KATELIN, narrow SHANA. Stairs: one step with rasheed-aid and min assist of 1 when descending due to left knee weakness. Wheelchair management & propulsion: using KATELIN LE's and right UE 160'x1 and supervision assist with increased time to complete task. TREATMENT: Bridging x15 reps with contact guard assist to hold left leg in place. Bent knee fallouts with green thera-band x15 reps and supervision assist. Appearance/Posture at end of treatment session: patient sitting in recliner chair, alarm in place, call button in reach, lunch tray positioned for patient. EDUCATION: PATIENT/FAMILY EDUCATION: patient educated on gait, one step, bed mobility, and safety. Response to Education: needs reinforcement ASSESSMENT Activity tolerance/response to PT: patient completes all activities with 2 episodes of left LE weakness needing increased assist to regain balance this date. Barriers to learning: Physical Barriers to discharge: Limited safety awareness, Decreased endurance, Upper extremity weakness, andLower extremity weakness Patient continues progressing toward previously set goals which remain appropriate at this time. PLAN Patient to be seen bid 5x/week to address previously established deficits and goals. * Rosalia Marinelli, OLGA - 01/04/2024 11:50 AM CDT Occupational Therapy NOTE / SESSION TYPE: OT ROUNDS UPDATE PATIENT'S NAME: Gunjan Gtz Jr. AGE / SEX: 78 y.o. / male ROOM: [place] [id number] : 1945 DATE: 01/04/24 Multi-Disciplinary Problems (from Occupational Therapy) Active Problems Problem: [place] [facility] [place]: 12/16/23 Goal Start Date Expected End Date End Date OT [facility] [place] [facility] [place] 12/16/23 12/23/23 -- Goal Details: Patient will complete basic ADL routine including: bathing in shower, LE dressing, footwear, UB dressing, and grooming tasks with min assist and appropriate compensatory strategies. Goal Start Date Expected End Date End Date OT [facility] [place] [facility] [place] 12/16/23 12/23/23 -- Goal Details: Patient will complete simulated car transfer using appropriate device with min assist Goal Start Date Expected End Date End Date [place] [facility] [place] [facility] [place] 12/16/23 12/23/23 -- Goal Details: Patient will complete toileting and toilet transfer with min assist and appropriate device. Goal Start Date Expected End Date End Date OT [facility] [place] 12/16/23 12/23/23 -- Goal Details: Patient will complete functional/meaningful task in standing for 3-5 minutes with minassist for balance one time. Goal Start Date Expected End Date End Date OT [facility] 5 12/16/23 12/23/23 -- Goal Details: Patient will complete HEP (LUE SROM/RUE AROM) to improve BUE ROM/strength/endurance and ADL participation with min verbal cues 1 time. Goal Start Date Expected End Date End Date OT [facility] 6 12/16/23 12/23/23 -- Goal Details: Patient family/caregiver will attend one OT session and be aware of discharge needs/plans Goal Start Date Expected End Date End Date OT [facility] 7 12/16/23 12/23/23 -- Goal Details: Patient will complete medication management for 2-3 prescriptions with 100% accuracy and no additional cues one time. Mr. Gtz is making good progress in therapy. They demonstrate good participation and good motivation working towards therapy goals. They are currently completing bathing in shower with max assist. They are min assist for UE dressing utilizing rasheed technique. They are mod assist for LE dressing with max assist for standing components. They are completing footwear with max assist. They are currently completing oral care/grooming tasks in sitting with set up assist. They are receptive to education and training. They are using compensatory strategies/adaptive equipment including rasheed techniques during ADLs. They are using rasheed aide for functional transfers and need min assist for car simulator, min assist for standard toilet and min assist for stand pivot transfers. They need max assist for toileting. They are expected to continue to progress in therapy. They will benefit from continued skilled occupational therapy to work on adaptive ADL strategies, balance, functional transfers, and UEROM/strength to increase independence with daily occupations and lower the burden of care on family/caregivers. STRENGTHS: MOTIVATED, GOOD FAMILY / SOCIAL SUPPORT, ABLE TO TOLERATE INPATIENT REHAB, GOOD PREMORBID FUNCTIONAL STATUS, GOOD PREMORBID MEDICAL STATUS, and LIVING IN THE COMMUNITY PREMORBIDLY BARRIERS: DECREASED ACTIVITY TOLERANCE, DECREASED UE ROM / STRENGTH / COORDINATION, DECREASED MOBILITY, DECREASED BALANCE, and DECREASED VISUAL PERCEPTUAL SKILLS OVERCOMING BARRIERS: ADL/IADL training, functional transfer training, caregiver training PRN, UE HEP, endurance training, AE/durable medical equipment training EQUIPMENT RECOMMENDED FOR DISCHARGE: W/C LAP TRAY, TOILET GRAB BARS, SHOWER CHAIR, and SHOWER GRAB BARS Rosalia Marinelli, OT 01/04/24 11:50 AM . * Becky Montana MD - 01/04/2024 11:47 AM CDT INPATIENT REHABILITATION DAILY PROGRESS NOTE CHIEF COMPLAINT: right posterior limb internal capsule infarct SUBJECTIVE: Reports left shoulder and elbow pain due to positioning. Trial lap tray today. OBJECTIVE: VITALS: Vitals: 01/03/24 0709 01/03/24 0819 01/03/24 1905 01/04/24 0704 BP: 117/62 118/73 117/66 BP Location: Right arm Right arm Patient Position: Sitting Sitting Pulse: 83 57 66 Resp: 18 18 20 Temp: 36.8 ??C (98.2 ??F) 36.3 ??C (97.3 ??F) 36.4 ??C (97.5 ??F) TempSrc: Oral Oral Oral SpO2: 94% 95% 96% 96% Weight: Height: PHYSICAL EXAM: General: no acute distress, brushing teeth HEENT: normocephalic, trachea midline Heart: rrr Lungs: ctab GI: soft, nontender Neuro: awake, alert LABS/RADIOLOGY/DIAGNOSTIC REVIEW Recent Labs Lab Units 01/03/24 0423 WBC K/cumm 8.0 HEMOGLOBIN g/dL 11.7* HEMATOCRIT % 35.6* PLATELETS K/cumm 228 Recent Labs Lab Units 01/03/24 0423 SODIUM mmol/L 141 POTASSIUM PLASMA mmol/L 4.2 CHLORIDE mmol/L 108 CO2 mmol/L 26 ANIONGAP mmol/L 7 GLUCOSE mg/dL 105 BUN SERUM mg/dL 12 CREATININE mg/dL 1.22 CALCIUM mg/dL 8.9 ALBUMIN g/dL 3.0* ALK PHOS Units/L 100 ALT Units/L 23 AST Units/L 19 BILIRUBIN TOTAL mg/dL 0.3 Recent Labs Lab Units 01/03/24 0423 GLUCOSE mg/dL 105 OT Functional Mobility: 12/20 Functional transfers: MOD-MAX OT Self Care: 12/20 Bathing: MAX Grooming: MAX UB dress:MOD LB dress: MAX Footwear: MAX Toileting:TOTAL NUMEROLOGIST Cognition: Mild/moderate cognitive deficits in short-term memory, insight, and problem solving/reasoning. Left visual inattention. NUMEROLOGIST Communication: Mild dysarthria NUMEROLOGIST Swallowing: Tolerating regular diet with thin liquids PT Functional Mobility: Bed Mobility: sit to supine with min assist for left LE. Supine to sit withcontact guard assist. Transfers: sit to stand with contact guard/min assist, stand to sit with contact guard assist with max verbal cues to complete turn before reaching for chair. Transfers wheelchair to recliner chair stand pivot transfer by holding onto chair with min assist. Ambulation: rasheed-aid 10'x1, 15'x1 with min assist. Patient with decreased gertrudis, step to gait pattern, decreased leftheel strike and push off, narrow SHANA, downward gaze, slight flexed posture at hips, decreased left knee stability with fatigue. Stairs: one step performed 2x: ascending with one handrail and mod assist the first time and min assist the second time. Descending both times with min assist of 1 and CG assist of 1 with decreased left knee stability noted second time. Wheelchair management & propulsion: using right UE and LE 60'x1 and supervision assist with increased time. No results found. MEDICATIONS: Current Facility-Administered Medications: acetaminophen (TYLENOL) tablet 650 mg, 650 mg, oral, Q6H PRN, Becky Montana MD, 650 mg at 01/04/24 0818 albuterol HFA (PROVENTIL HFA,VENTOLIN HFA,PROAIR HFA) 90 mcg/actuation inhaler 2 puff, 2 puff, inhalation, Q4H PRN (RT), Becky Montana MD ascorbic acid (VITAMIN C) tablet/chewable tablet 500 mg, 500 mg, oral, BID, Jl Montana MD, 500 mg at 01/04/24 0734 aspirin chewable tablet 81 mg, 81 mg, oral, Daily, Becky Montana MD, 81 mg at 01/04/24 0735 calcium carbonate (TUMS) chewable tablet 1,000 mg, 400 mg of elemental calcium, oral, TID PRN, Becky Montana MD cetirizine (ZyrTEC) tablet 10 mg, 10 mg, oral, Daily, Becky Montana MD, 10 mg at 01/04/24734 donepeziL (ARICEPT) tablet 10 mg, 10 mg, oral, Nightly, Becky Montana MD, 10 mg at 01/03/242042 enoxaparin (LOVENOX) syringe 40 mg, 40 mg, subcutaneous, Daily-2100, Becky Rudd MD, 40 mg at 01/03/242042 fluticasone furoate-vilanteroL (BREO ELLIPTA) 100-25 mcg/dose inhaler 1 puff, 1 puff, inhalation, Daily (RT), Becky Montana MD, 1 puff at 01/03/24 0819 fluticasone propionate (FLONASE) 50 mcg/actuation nasal spray 1 spray, 1 spray, each nostril, BID, Becky Montana MD, 1 spray at 01/04/24 0734 gabapentin (NEURONTIN) capsule 300 mg, 300 mg, oral, TID, Becky Montana MD, 300 mg at 01/04/24 0735 guaiFENesin ER (MUCINEX) extended release tablet 600 mg, 600 mg, oral, BID, Jl Montana MD, 600 mg at 01/04/24 0735 hydrocortisone 2.5 % cream, , topical, BID, Becky Montana MD, Given at 01/04/24 0736 levothyroxine (SYNTHROID) tablet 150 mcg, 150 mcg, oral, Daily - 0600, Becky Rudd MD, 150 mcg at 01/04/24 0637 lidocaine (LIDODERM) 5 % patch 1 patch, 1 patch, transdermal, Q24H, Becky Rudd MD, 1 patch at 01/04/24 1027 ofloxacin (OCUFLOX) 0.3 % ophthalmic solution 1 drop, 1 drop, each eye, Daily PRN, Becky Montana MD ondansetron (ZOFRAN) tablet 4 mg, 4 mg, oral, TID PRN, Becky Montana MD pantoprazole DR (PROTONIX) extended release tablet 40 mg, 40 mg, oral, BID, Jl Montana MD, 40 mg at 01/04/24 07 ramelteon (ROZEREM) tablet 8 mg, 8 mg, oral, Nightly PRN, Becky Montana MD, 8 mg at 01/03/242042 rosuvastatin (CRESTOR) tablet 40 mg, 40 mg, oral, Daily, Becky Montana MD, 40 mg at 01/04/24 0736 senna-docusate (PERICOLACE) 8.6-50 mg per tablet 1 tablet, 1 tablet, oral, BID PRN, Becky Montana MD, 1 tablet at 12/19/23 0837 simethicone (MYLICON) chewable tablet 80 mg, 80 mg, oral, TID PRN, Becky Rudd MD tamsulosin (FLOMAX) extended release capsule 0.4 mg, 0.4 mg, oral, Nightly, Jl Montana MD, 0.4 mg at 01/03/242042 tiZANidine (ZANAFLEX) tablet 2 mg, 2 mg, oral, TID PRN, Becky Montana MD, 2 mg at 12/27/232025 traMADoL (ULTRAM) tablet 50 mg, 50 mg, oral, Q6H PRN, Becky Montana MD, 50 mg at 01/03/241828 ASSESSMENT/PLAN: MEDICAL PLAN OF CARE: 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 Reviewed home medicine - on spironolactone 25mg and lasix 20mg 12/26: controlled 12/27: controlled 12/28: controlled 12/29: controlled 12/30:controlled 01/02:controlled 01/03: controlled HLD: continue rosuvastatin 40mg AAA: no current medications Hypothyroidism: continue levothyroxine 150mcg GERD: continue pantoprazole 40mg bid Alzheimer: continue donepezil 10mg qhs Depression: no current medications Asthma: continue breo ellipta 100-25 daily BPH: continue flomax 0.4mg qhs 12/23: reviewed home medications - on oxybutynin 15mg and gemtesa 75mg for overactive bladder - hold for now Neuropathy: continue gabapentin 300mg tid Pain: Start Tylenol 650mg q6h prn, oxycodone 5mg q4h prn 12/22: lidoderm patch, decrease frequency of oxycodone to q6h prn 12/23: reviewed home medications, dc oxycodone and start tramadol 50mg q6h pr: heat/ice prn to left elbow Bowels: Start miralax daily, pericolace bid prn, simethicone prn 12/16: dulcolax 10mg x1 12/29: dc miralax Nausea: Start Zofran prn, Tums prn Congestion: start mucinex 600mg bid 12/23: start home cetirizine 10mg 12/26: start flonase bid 01/02: add vitamin c 500mg bid Knee pain: consult to orthopedics for injection per patient request 12/29 received injection yesterday Rash: hydrocortisone cream bid to right hand Diet: Reg/Thin HH 2G Na DVT ppx: restart lovenox Precautions: Fall Weightbearing status: full Code: Full Code Care discussed with Nursing Reviewed vital signs, intake, bowel, and bladder - as above REHAB PLAN OF CARE: Patient's expected intensity and duration of participation in the interdisciplinary rehabilitation program and disciplines that comprise this team: Therapies required to achieve goals:The patient will benefit from integrated coordination of care from the following interdisciplinary services: Medical Supervision, 24 hours Rehabilitation Nursing, Physical Therapy, Occupational Therapy, Case Management; Social Work; Therapeutic Recreation; SpeechTherapy; Flatwork Feeder Frequency and duration of therapies expect to be:Expected intensity and frequency of participation in the interdisciplinary rehab program is: 3 hours per day except Wednesday. Expected intensity and frequency of Physical Therapy (PT): 1.5 hours per day over 5-7 days for the duration of length of stay Expected intensity and frequency of Occupational Therapy (OT): 1.5 hours per day over 5-7 days per week for the duration of length of stay Expected intensity and frequency of Speech Therapy (NUMEROLOGIST): 1 hour per day per day over 5-7 days per week for the duration of length of stay FUNCTIONAL CHANGE: DISCHARGE PLANNING: Expected Discharge Date: Saturday 01/06 with home health PT OT Equipment: TBD Family Training: SW to set up Education: Follow up Appointments: PCP 1-2 weeks Becky Montana MD Physical Medicine and Rehabilitation I can be reached from 7am-7pm through [email or web address] chat. Hospitalist forest fire prevention manager from 7pm-7am * Teena Cyr - 01/04/2024 11:33 AM CDT NUTRITION ASSESSMENT Nutrition Status: Patient meets criteria for moderate social/environmental malnutrition, reference ASPEN guidelines. Present on Admission: Yes REASON FOR ASSESSMENT: Follow Up Encounter Date: 01/04/24 11:33 AM Admission Date: 12/15/2023 LOS: 20 days HPI: Patient is a 78 y.o. male with history of GERD, PVD presented to [facility] on 12/07 with sudden left sided weakness. CTH negative. CTA no LVO. He was given tPA. Neurology consulted. 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 Noted to have coffee ground emesis, lovenoxand aspirin held and patient started on IV protonix. No further episodes and aspirin resumed. FOBT negative. Therapy recommending acute rehab prior to return home. 12/08: Ordering Ensure High PRO bid for additional calorie/protein intake. 12/12: Modify ONS Ensure high protein to vanilla flavor only. PO intakes averaging 64%. Malnutrition assessment complete. 12/15: Modify diet to regular to promote PO intakes. Continue Ensure HP vanilla bid. PO intakes avg 40%. Malnutrition re-assessment completed. 12/20: Continue regular diet and Ensure HP vanilla bid. PO intakes avg 57%. 12/27: continue regular diet with Ensure HP vanilla bid 01.03: continue regular diet with Ensure HP vanilla bid Objective Past Medical History: Diagnosis Date Acute gastric ulcer without hemorrhage or perforation Ulcer, gastric, acute - (Added by TW Conv) Alzheimer's dementia ([facility]) Asthma Back pain Cataract Closed fracture of left tibial plateau with delayed healing Closed fracture of right tibial plateau with delayed healing Closed nondisplaced osteochondral fracture of left patella with delayed healing Closed osteochondral fracture of patella, right, with delayed healing, subsequent encounter Clotting disorder ([facility]) ([facility]) Complex tear of medial meniscus of left knee as current injury Complex tear of medial meniscus of right knee as current injury Cramps of lower extremity Diverticulitis of colon Easy bruisability Fatigue Frequent urination Gastroesophageal reflux disease GERD Hypothyroidism Incontinence of urine Muscle weakness Osteoarthritis Osteoarthritis Peptic ulcer Peptic ulcer disease Seizures ([facility]) 1997 last seizure in 1997 SOB (shortness of breath) on exertion Subchondral insufficiency fracture of condyle of left femur ([facility]) ([facility]) Vertigo Vision changes Visual disturbance hx of double vision, corrective lenses Past Surgical History: Procedure Laterality Date CATARACT EXTRACTION, BILATERAL Bilateral 2018 HERNIA REPAIR 1979 Hiatal Hernia repair KNEE ARTHROSCOPY Bilateral THYROIDECTOMY 12/27/2019 Social History Tobacco Use Smoking status: Former Current packs/day: 0.00 Types: Cigarettes Start date: 1965 Quit date: 1966 Years since quittin.2 Smokeless tobacco: Never Substance and Sexual Activity Drug use: Yes Types: Alcohol Sexual activity: Defer Alcohol Use: Not At Risk (12/16/2023) AUDIT-C Frequency of Alcohol Consumption: Monthly or less Average Number of Drinks: 1 or 2 Frequency of Binge Drinking: Less than monthly MEDICATION/LAB REVIEW: Scheduled Meds: ascorbic acid, 500 mg, oral, BID aspirin, 81 mg, oral, Daily cetirizine, 10 mg, oral, Daily donepeziL, 10 mg, oral, Nightly enoxaparin, 40 mg, subcutaneous, Daily-2100 fluticasone furoate-vilanteroL, 1 puff, inhalation, Daily (RT) fluticasone propionate, 1 spray, each nostril, BID gabapentin, 300 mg, oral, TID guaiFENesin ER, 600 mg, oral, BID hydrocortisone, , topical, BID levothyroxine, 150 mcg, oral, Daily - 0600 lidocaine, 1 patch, transdermal, Q24H pantoprazole DR, 40 mg, oral, BID rosuvastatin, 40 mg, oral, Daily tamsulosin, 0.4 mg, oral, Nightly Continuous Infusions: PRN Meds: acetaminophen albuterol HFA calcium carbonate ofloxacin ondansetron ramelteon senna-docusate simethicone tiZANidine traMADoL Recent Labs Lab Units 01/03/24 0423 SODIUM mmol/L 141 POTASSIUM PLASMA mmol/L 4.2 CHLORIDE mmol/L 108 CO2 mmol/L 26 BUN SERUM mg/dL 12 CREATININE mg/dL 1.22 TOZ-EEA-GUFWLSH mL/min/1.73 m2 60 CALCIUM mg/dL 8.9 ALBUMIN g/dL 3.0* Recent Labs Lab Units 01/03/24 0423 GLUCOSE mg/dL 105 ALT Date Value Ref Range Status 01/03/2024 23 7 - 55 Units/L Final AST Date Value Ref Range Status 01/03/2024 19 10 - 50 Units/L Final Alk phos Date Value Ref Range Status 01/03/2024 100 40 - 130 Units/L Final Lab Results Component Value Date HGBA1C 5.6 12/07/2023 HDL 55 12/08/2023 LDLCALC 110 12/08/2023 CHOL 182 12/08/2023 TRIG 86 12/08/2023 NURSING ASSESSMENT: Last BM Date: 01/02/24 Bowel Sounds (All Quadrants): Active Hood Scale Score: 19 Skin Integrity: Intact Vital Signs BP: 117/66 Temp: 36.4 ??C (97.5 ??F) Pulse: 66 Resp: 20 SpO2: 96 % Intake/Output Summary (Last 24 hours) at 01/04/2024 1133 Last data filed at 01/04/2024 0739 Gross per 24 hour Intake 730 ml Output 100 ml Net 630 ml Adult Malnutrition Scoring Tool (MST) What diet do you follow at home?: regular Have You Recently Lost Weight Without Trying?: No Have you been eating poorly because of a decreased appetite?: Yes Malnutrition Screening Tool (MST) Score: 1 Hunger Screen - Admission Within the past 12 months the food we bought just didn't last and we didn't have money to get more.: Never true Within the past 12 months we worried whether our food would run out before we got money to buy more.: Never true Within the past 12 months, you worried that your food would run out before you got the money to buymore.: Never true Within the past 12 months, the food you bought just didn't last and you didn't have money to get more.: Never true Anthropometrics Weight: 97.9 kg (215 lb 14.4 oz) Weight Method (RD Entered): Bed scale Admission Weight : 102.1 kg Weight Change: 7.66 kg (16.90 lbs) IBW/kg (Calculated) : 75.3 kg Height: 177.8 cm (5' 10 ) Weight in (lb) to have BMI = 25: 173.9 BMI (Calculated): 31 BMI Classification: BMI 30.0 - 34.9 Obese Class I Wt Readings from Last 10 Encounters: 01/01/24 97.9 kg (215 lb 14.4 oz) 12/14/23 103.4 kg (228 lb) 12/08/23 103.4 kg (227 lb 15.3 oz) 11/12/23 99.8 kg (220 lb) 11/03/23 99.8 kg (220 lb) 10/10/23 100.9 kg (222 lb 8 oz) 05/18/23 104.3 kg (230 lb) 05/04/23 104.3 kg (230 lb) 03/23/23 105.2 kg (232 lb) 12/03/22 105 kg (231 lb 7.7 oz) ESTIMATED NEEDS: Total Kcal/kg Estimated Needs : 2448.3 Kcal/k. Type of Weight Used for Estimated Kcals: Current Total Protein Estimated Needs (gm): 117.52 Protein Needs Based on g/k.2 Type of Weight Used forEstimated Protein : Current Total Fluid Estimated Needs: 2448.3 Fluid Needs Based on : 1 ml/kcal Type of Weight Used for Estimated Fluid Needs: Current Dietary Orders (From admission, onward) Start Ordered 12/16/23 1700 Oral Nutrition Supplements (CH) Select Supplement: Ensure High Protein - Vanilla WithBreakfast and Dinner Comments: Vanilla ONLY Question: (CH) Select Supplement: Answer: Ensure High Protein - Vanilla 12/16/23 0843 12/16/23 0844 Adult Diet Regular Diet effective now Question: () Diet type Answer: Regular 12/16/23 0843 Allergies: Reviewed. IMPRESSION: RD working remote. Regular diet with Ensure HP vanilla bid. Pt continues with improved appetite/intakes. Eating 50-100% of meals. Family also providing some food. Drinking ONS. +2 BLEE. GI WDL. Last BM 01/01. No pressure injuries. Labs reviewed. Recommend continue PO diet/ONS as ordered. RD available if needed. ASPEN MALNUTRITION ASSESSMENT: Date of completion: 12/27 ASPEN/AND Malnutrition Screening: Social/behavioral/environmental circumstances mild/moderate Energy Intake: < 75% energy intake compared to estimated energy needs > 7 days Weight Loss: 1%-2% in 1 week Body Fat: Clinical criteria not met Muscle Mass: Clinical criteria not met Fluid Accumulation: Clinical criteria not met Patient Meets Criteria for Moderate Malnutrition: Yes Energy Intake: < 75% energy intake compared to estimated energy needs > (or equal to) 3 months Weight Loss: 5% in 1 month Body Fat: (Unable to assess) Muscle Mass: (Unable to assess) Patient Meets Criteria for Moderate Malnutrition: Yes NUTRITION FOCUSED PHYSICAL EXAM: Completed. Subcutaneous Fat Loss Orbital Region - Surrounding the Eye: Slightly bulged fat pads Cheek Region - Buccal Fat: Full, round filled-out cheeks Upper Arm Region - Triceps/Biceps: Some depth pinch but not ample Muscle Loss Sikhism Region - Temporalis Muscle: Slight depression Clavicle Bone Region - Pectoralis Major, Deltoid, Trapezius Muscles: Not visible in male, visible but not prominent in female Clavicle and Acromion Bone Region - Deltoid Muscle: Rounded, curves at arm/shoulder/neck Scapular Bone Region - Trapezius, Supraspinus, Infraspinus Muscles: Bones not prominent NUTRITION DIAGNOSIS: Nutrition Diagnosis 1: Protein-Calorie Malnutrition - Moderate Related to: Social/Behavioral/Environmental circumstances Evidenced by: Inadequate energy intake, Weight loss Nutrition Diagnosis 2: Increased nutrient needs (protein) Related to: Increased activity level Evidenced by: Comprehensive rehabilitation therapy INTERVENTION(S): Summary: Follow up per policy, Assess for nutrition changes, Encouragement GOAL(S): Adequate nutrition to meet estimated needs by next assessment, Tolerance of medical food supplementby next assessment, Prevent further unintended weight loss during admission MONITORING/EVALUATION: Appetite, PO intake, Plan of care, Stool patterns, Weight changes, Discharge plans, Labs, Supplement tolerance, Food preferences Diet Instructions Recommend to eat a generally healthy diet with foods that include a variety of fruits, vegetables, whole-grain breads, low-fat dairy products, beans, lean meats, and fish. Limit fast food, sugary drinks, excess salt, and desserts. Limit sugary drinks like lemonade, regular soda, Gatorade, and sweettea and drink water throughout the day. Continue Ensure/Boost high calorie and protein supplements 1-2x/day if appetite is poor. Call [phone] to speak with a dietitian about any diet related concerns. Additional resources are available online from the Academy of [employer] at www.eatright.org Nutrition Follow-Up : 01/11/24 Teena Cyr MS, RD, LD * Rosalia Marinelli, OT - 01/04/2024 9:45 AM CDT Occupational Therapy NOTE TYPE: OT TREATMENT ([facility] BEDSIDE SESSION) Patient's Name: Gunjan Gtz Jr. Age / Sex: 78 y.o. / male Room: [place] [id number] : 1945 Date: 01/04/24 Time In: 0945 Time Out: 1100 Patient Active Problem List Diagnosis Primary osteoarthritis of both knees Subchondral insufficiency fracture of condyle of left femur (CMS/HCC) ([facility]) Closed fracture of left tibial plateau with delayed healing Closed fracture of right tibial plateau with delayed healing Closed nondisplaced osteochondral fracture of left patella with delayed healing Closed osteochondral fracture of patella, right, with delayed healing, subsequent encounter Complex tear of medial meniscus of right knee as current injury Complex tear of medial meniscus of left knee as current injury Goiter Breast pain, right Cataract of right eye Diplopia Esotropia Hypertropia of right eye Skin lesion of breast Edema Intermittent claudication ([facility]) Iron deficiency anemia Peripheral vascular disease (HCC) Pain due to total right knee replacement (CMS/HCC) ([facility]) Hamstring tendinitis of right thigh Quadriceps weakness Idiopathic peripheral neuropathy Abnormality of gait and mobility Hx of total knee replacement, right Neuropathy ([facility]) 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 Biceps tendinitis of left upper extremity Tear of left glenoid labrum Coffee ground emesis Upper GI bleed Acquired hypothyroidism Acute blood loss anemia Lung nodule Nocturnal cough Hiatal hernia Infrarenal abdominal aortic aneurysm (AAA) without rupture ([facility]) Acute CVA (cerebrovascular accident) ([facility]) Moderate malnutrition ([facility]) Primary osteoarthritis of left knee Past Medical History: Diagnosis Date Acute gastric ulcer without hemorrhage or perforation Ulcer, gastric, acute - (Added by TW Conv) Alzheimer's dementia ([facility]) Asthma Back pain Cataract Closed fracture of left tibial plateau with delayed healing Closed fracture of right tibial plateau with delayed healing Closed nondisplaced osteochondral fracture of left patella with delayed healing Closed osteochondral fracture of patella, right, with delayed healing, subsequent encounter Clotting disorder ([facility]) ([facility]) Complex tear of medial meniscus of left knee as current injury Complex tear of medial meniscus of right knee as current injury Cramps of lower extremity Diverticulitis of colon Easy bruisability Fatigue Frequent urination Gastroesophageal reflux disease GERD Hypothyroidism Incontinence of urine Muscle weakness Osteoarthritis Osteoarthritis Peptic ulcer Peptic ulcer disease Seizures ([facility]) 1997 last seizure in 1997 SOB (shortness of breath) on exertion Subchondral insufficiency fracture of condyle of left femur ([facility]) ([facility]) Vertigo Vision changes Visual disturbance hx of double vision, corrective lenses Past Surgical History: Procedure Laterality Date CATARACT EXTRACTION, BILATERAL Bilateral 2018 HERNIA REPAIR 1979 Hiatal Hernia repair KNEE ARTHROSCOPY Bilateral THYROIDECTOMY 12/27/2019 Precautions (Including Weight-Bearing): Fall risk and Bed / chair alarm SUBJECTIVE: Patient agreeable Therapy Pain: Pre-therapy pain level: 6 / 10 Pain location: L shoulder Pain intervention(s): Repositioned and Other: RN applied lidocaine patch Post-therapy pain level: Patient does not give number, but reports decrease in pain Pain scale used: 0-10 SCALE OBJECTIVE: APPEARANCE: Presentation upon OT arrival: Patient Sitting in bedside recliner Presentation upon OT departure: PATIENT Sitting in manual wheelchair with staff assistance Bed / chair alarm in place and activated upon OT departure: Yes Call light within arms reach of patient at end of session: No - due to patient taken to physical therapy gym Completed patient handoff and notified Physical Therapist / Physical Therapist Human Resources Clerk, name: Poly, of patient's location and functional status upon completion of session. COGNITIVE / PERCEPTUAL: Alert and oriented to conversation SELF CARE: Shower / Bathe Self Type of bathing: spongebathing Location of shower / bathe self: Sitting in manual wheelchair and Standing at grab bar Tasks completed: all components Components that required assistance (if applicable): MAX ASSIST RIGHT ARM and MAX ASSIST BUTTOCKS Overall assist level: Partial / moderate assistance: Less than half (1% - 49%) Adaptive equipment (if applicable): no assistive device Additional documentation: MOD assist overall. Max assist to wash RUE. Max assist to wash buttock instanding Oral Hygiene Location of oral hygiene: Sitting in manual wheelchair Overall assist level: Set-up / clean up assistance Additional documentation: Patient placed towel on lap to stabilize toothbrush when applying toothpaste Other Grooming Tasks Location of other grooming tasks: Sitting in manual wheelchair Tasks completed: COMBING HAIR and APPLYING DEODORANT Overall assist level: Set-up / clean up assistance Additional documentation: N/A UE Dressing Location of UE dressing: Sitting in manual wheelchair Tasks completed: Sweatshirt and Undershirt Overall assist level: Partial / moderate assistance: Less than half (1% - 49%) Additional documentation: MIN assist to fully pull shirt down in back LE Dressing (Underwear / Pants) Location of LE dressing (Underwear / Pants): Sitting in manual wheelchair and Standing at grab bar Tasks completed: Elastic waist pants and Incontinence briefs as underwear Overall assist level: Substantial / maximal assistance: More than half (50% - 99%) Additional documentation: MAX assist overall. Patient requires mod assist to thread LLE and min assist to thread RLE. Max assist to complete hip components at grab bar with CGA for balance Putting On / Taking Off Footwear Location of putting on / taking off footwear: Sitting in manual wheelchair Tasks completed: Sock(s) and Slip-on shoe(s) Overall assist level: Substantial / maximal assistance: More than half (50% - 99%) Additional documentation: N/A Toileting Location: sitting on standard toilet and standing at standard toilet Tasks completed: hygiene management, clothing management pre-toileting, and clothing management post-toileting Overall assist level: Substantial / maximal assistance: More than half (50% - 99%) Additional documentation: Patient required CGA for toileting hygiene while shifting on toilet and max assist for clothing management pre/post toileting MOBILITY: Toilet transfer Location: STANDARD TOILET Overall assist level: Partial / moderate assistance: Less than half (1% - 49%) Device: GRAB BARS Additional documentation: MIN assist for stand pivot w/c <> standard toilet using grab bar Transfers: Min assist for stand pivot recliner to w/c using rasheed aide HEARING / SPEECH / VISION: Expression of ideas and wants Overall assist level: WITHOUT DIFFICULTY Understanding verbal and non-verbal content Overall assist level: UNDERSTANDS Additional activities: Estim for muscle re-education (Overall assist level): hand over hand Location: seated in w/c ACTIVITY DESCRIPTION: Patient participated in E-stim activity for L wrist/digit muscle re-educationwith the following settings: Wavelength:VMS , with cycle time of 4/12, ramp at 2 seconds, with amplitude at 31 mA CC. Patient demonstrated good tolerance for activity. Patient participated in activity for 20 minutes. Caregiver present (yes / no): No Education & training provided: Role of OT, OT plan of care, ADL training, Functional transfer training, Balance training, and Safety education ASSESSMENT: Activity tolerance / response to OT: GOOD PARTICIPATION, GOOD MOTIVATION, and RECEPTIVE TO EDUCATION / TRAINING Progress towards goals: Please refer to Care Plan from this date for progress towards individual goals. PLAN: Therapy Plan: Please refer to most recent Inpatient Rehabilitation Team Conference note for discharge plan, including location, recommended level of supervision, and arrangements. Frequency of therapy: BID SESSIONS 5 DAYS / WEEK TO ADDRESS PREVIOUSLY ESTABLISHED DEFICITS AND GOALS Rosalia Marinelli OT 01/04/24 * Paresh Prieto, NUMEROLOGIST - 01/03/2024 3:02 PM CDT SPEECH LANGUAGE PATHOLOGY PROGRESS NOTE Patient's Name: Gunjan Gtz Jr. : 1945 Age: 78 y.o. Time In: 13:05 Time Out: 13:31 Patient Active Problem List Diagnosis Primary osteoarthritis of both knees Subchondral insufficiency fracture of condyle of left femur (CMS/HCC) (HCC) Closed fracture of left tibial plateau with delayed healing Closed fracture of right tibial plateau with delayed healing Closed nondisplaced osteochondral fracture of left patella with delayed healing Closed osteochondral fracture of patella, right, with delayed healing, subsequent encounter Complex tear of medial meniscus of right knee as current injury Complex tear of medial meniscus of left knee as current injury Goiter Breast pain, right Cataract of right eye Diplopia Esotropia Hypertropia of right eye Skin lesion of breast Edema Intermittent claudication ([facility]) Iron deficiency anemia Peripheral vascular disease ([facility]) Pain due to total right knee replacement ([facility]/HCC) ([facility]) Hamstring tendinitis of right thigh Quadriceps weakness Idiopathic peripheral neuropathy Abnormality of gait and mobility Hx of total knee replacement, right Neuropathy (CMS/HCC) 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 Biceps tendinitis of left upper extremity Tear of left glenoid labrum Coffee ground emesis Upper GI bleed Acquired hypothyroidism Acute blood loss anemia Lung nodule Nocturnal cough Hiatal hernia Infrarenal abdominal aortic aneurysm (AAA) without rupture ([facility]) Acute CVA (cerebrovascular accident) ([facility]) Moderate malnutrition ([facility]) Primary osteoarthritis of left knee Past Medical History: Diagnosis Date Acute gastric ulcer without hemorrhage or perforation Ulcer, gastric, acute - (Added by TW Conv) Alzheimer's dementia ([facility]) Asthma Back pain Cataract Closed fracture of left tibial plateau with delayed healing Closed fracture of right tibial plateau with delayed healing Closed nondisplaced osteochondral fracture of left patella with delayed healing Closed osteochondral fracture of patella, right, with delayed healing, subsequent encounter Clotting disorder ([facility]/HCC) ([facility]) Complex tear of medial meniscus of left knee as current injury Complex tear of medial meniscus of right knee as current injury Cramps of lower extremity Diverticulitis of colon Easy bruisability Fatigue Frequent urination Gastroesophageal reflux disease GERD Hypothyroidism Incontinence of urine Muscle weakness Osteoarthritis Osteoarthritis Peptic ulcer Peptic ulcer disease Seizures ([facility]) 1997 last seizure in 1997 SOB (shortness of breath) on exertion Subchondral insufficiency fracture of condyle of left femur ([facility]/HCC) ([facility]) Vertigo Vision changes Visual disturbance hx of double vision, corrective lenses Past Surgical History: Procedure Laterality Date CATARACT EXTRACTION, BILATERAL Bilateral 2018 HERNIA REPAIR 1980 Hiatal Hernia repair KNEE ARTHROSCOPY Bilateral THYROIDECTOMY 12/27/2019 SUBJECTIVE MENTAL STATUS: Awake and cooperative, resting in recliner. present in room. PAIN: Pre Therapy Pain Level: 0/10 Pain Location: N/A Pain Intervention: N/A Post Therapy Pain Level/Response to Intervention: 0/10 OBJECTIVE PRECAUTIONS: Fall SWALLOWING: Patient continues to tolerate regular consistency diet/thin liquids. COGNITION: Decreased short term memory, insight, and thought organization COMMUNICATION: Mild dysarthric speech TREATMENT ACTIVITIES: Recall daily activities/recent events with 100% accuracy Conversational task with 100% intelligibility Safety precautions with 80% accuracy EDUCATION: PATIENT/FAMILY EDUCATION: Discussed discharge date and household safety Response to Education: Needs reinforcement ASSESSMENT Activity Tolerance/Response to S.T.: Tolerated speech therapy session with no complaints Barriers to learning: Vision, Cognition Current status: Mild/ moderate decrease with safety awareness. Progress toward goals: Patient continues to progress toward previously set goals which remain appropriate at this time. PLAN Multi-Disciplinary Problems (from Speech Therapy) Active Problems Problem: [place]OLOG[place] [facility] [place]: 12/16/23 Goal Start Date Expected End Date End Date [facility] [place]16[place]23 01/06/24 -- Goal Details: Patient to perform short term memory tasks using compensatory strategies with 80% accuracy. Goal Start Date Expected End Date End Date [facility] [place] 12/16/23 01/06/24 -- Goal Details: Patient to perform functional problem solving/reasoning tasks with 80% accuracy. Goal Start Date Expected End Date End Date [facility] [place] 12/16/23 01/06/24 -- Goal Details: Patient to attend to left visual field 80% of the time given 2-3 verbal prompts. Goal Start Date Expected End Date End Date [facility] [place] 12/16/23 01/06/24 -- Goal Details: Patient's speech to be 90% intelligible during conversational tasks utilizing compensatory strategies. Frequency of Treatment: OD, 5xs weekly Recommendations: Recommend home with 24 hour supervision at discharge. If this is the last note, consider this the discharge summary. * Rosalia Marinelli, OT - 01/03/2024 1:32 PM CDT Occupational Therapy NOTE TYPE: OT TREATMENT ([facility] DEPARTMENT SESSION) PATIENT'S NAME: Gunjan Gtz Jr. AGE / SEX: 78 y.o. / male ROOM: [place] [id number] : 1945 DATE: 01/03/24 TIME IN: 1332 TIME OUT: 1405 Patient Active Problem List Diagnosis Primary osteoarthritis of both knees Subchondral insufficiency fracture of condyle of left femur (CMS/HCC) ([facility]) Closed fracture of left tibial plateau with delayed healing Closed fracture of right tibial plateau with delayed healing Closed nondisplaced osteochondral fracture of left patella with delayed healing Closed osteochondral fracture of patella, right, with delayed healing, subsequent encounter Complex tear of medial meniscus of right knee as current injury Complex tear of medial meniscus of left knee as current injury Goiter Breast pain, right Cataract of right eye Diplopia Esotropia Hypertropia of right eye Skin lesion of breast Edema Intermittent claudication ([facility]) Iron deficiency anemia Peripheral vascular disease ([facility]) Pain due to total right knee replacement (CMS/HCC) ([facility]) Hamstring tendinitis of right thigh Quadriceps weakness Idiopathic peripheral neuropathy Abnormality of gait and mobility Hx of total knee replacement, right Neuropathy (CMS/HCC) 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 Biceps tendinitis of left upper extremity Tear of left glenoid labrum Coffee ground emesis Upper GI bleed Acquired hypothyroidism Acute blood loss anemia Lung nodule Nocturnal cough Hiatal hernia Infrarenal abdominal aortic aneurysm (AAA) without rupture ([facility]) Acute CVA (cerebrovascular accident) ([facility]) Moderate malnutrition (CMS/HCC) Primary osteoarthritis of left knee Past Medical History: Diagnosis Date Acute gastric ulcer without hemorrhage or perforation Ulcer, gastric, acute - (Added by TW Conv) Alzheimer's dementia ([facility]) Asthma Back pain Cataract Closed fracture of left tibial plateau with delayed healing Closed fracture of right tibial plateau with delayed healing Closed nondisplaced osteochondral fracture of left patella with delayed healing Closed osteochondral fracture of patella, right, with delayed healing, subsequent encounter Clotting disorder (CMS/HCC) ([facility]) Complex tear of medial meniscus of left knee as current injury Complex tear of medial meniscus of right knee as current injury Cramps of lower extremity Diverticulitis of colon Easy bruisability Fatigue Frequent urination Gastroesophageal reflux disease GERD Hypothyroidism Incontinence of urine Muscle weakness Osteoarthritis Osteoarthritis Peptic ulcer Peptic ulcer disease Seizures ([facility]) 1997 last seizure in 1997 SOB (shortness of breath) on exertion Subchondral insufficiency fracture of condyle of left femur (CMS/HCC) ([facility]) Vertigo Vision changes Visual disturbance hx of double vision, corrective lenses Past Surgical History: Procedure Laterality Date CATARACT EXTRACTION, BILATERAL Bilateral 2018 HERNIA REPAIR 1979 Hiatal Hernia repair KNEE ARTHROSCOPY Bilateral THYROIDECTOMY 12/27/2019 PRECAUTIONS (INCLUDING WEIGHT-BEARING): Fall risk and Bed / chair alarm SUBJECTIVE: What are we doing this afternoon? THERAPY PAIN: PRE-THERAPY PAIN LEVEL: 0 / 10 PAIN LOCATION: No pain - Location N/A PAIN INTERVENTION(S): No pain - Intervention N/A POST-THERAPY PAIN LEVEL: 0 / 10 PAIN SCALE USED: 0-10 SCALE OBJECTIVE: APPEARANCE: PRESENTATION UPON OT ARRIVAL: PATIENT Sitting in bedside recliner PRESENTATION UPON OT DEPARTURE: PATIENT Sitting in manual wheelchair with staff assistance BED / CHAIR ALARM IN PLACE AND ACTIVATED UPON OT DEPARTURE: Yes CALL LIGHT WITHIN ARMS REACH OF PATIENT AT END OF SESSION: No - due to patient taken to physical therapy gym COMPLETED PATIENT HANDOFF AND NOTIFIED Physical Therapist / Physical Therapist Human Resources Clerk, NAME: Marcia, OF PATIENT'S LOCATION AND FUNCTIONAL STATUS UPON COMPLETION OF SESSION COGNITIVE / PERCEPTUAL: Alert and oriented to conversation UE THERAPEUTIC EXERCISES: EXERCISE TYPE: B UE SROM EXERCISE(S) COMPLETED WITH NUMBER OF REPETITIONS: SHOULDER FLEXION 10 , SHOULDER EXTENSION 10 , ELBOW FLEXION 10, ELBOW EXTENSION 10 , WRIST FLEXION 10, WRIST EXTENSION 10, FOREARM SUPINATION 10, FOREARM PRONATION 10, FINGER FLEXION 10, FINGER EXTENSION 10, THUMB ABDUCTION 10 , and THUMB ADDUCTION 10 NUMBER OF SETS: 1 ASSIST LEVEL: MIN physical assistance LOCATION OF COMPLETION: seated in w/c TOLERANCE: Patient issued handouts for SROM to utilize at home. present and educated on purpose and correct completion of SROM. Patient with good tolerance to activity Toileting Patient completed toileting of hygiene management, clothing management pre- toileting, and clothing management post-toileting while sitting on standard toilet and standing at standard toilet with overall Maximal assistance. Patient required CGA for toileting hygiene while shifting on toilet and max assist for clothing management pre/post toileting MOBILITY: TOILET TRANSFER LOCATION: STANDARD TOILET OVERALL ASSIST LEVEL: Partial / moderate assistance: Less than half (1% - 49%) DEVICE: GRAB BARS ADDITIONAL DOCUMENTATION: MIN assist for stand pivot w/c <> standard toilet using grab bar CAR TRANSFER LOCATION: CAR SIMULATOR SET AT HEIGHT OF 16 INCHES PER PATIENT'S HOME VEHICLE OVERALL ASSIST LEVEL: Partial / moderate assistance: Less than half (1% - 49%) DEVICE: RASHEED CANE ADDITIONAL DOCUMENTATION: MIN assist for stand pivot w/c <> car simulator. After initial demonstration from OT, patient completed second transfer with assisting. verbalizes and demonstrates understanding. TRANSFERS: Min assist for stand pivot recliner to w/c using rasheed aide CAREGIVER PRESENT (YES / NO): Yes: EDUCATION & TRAINING PROVIDED: Role of OT, OT plan of care, ADL training, Functional transfer training, Balance training, Safety education, and Family / Caregiver training ASSESSMENT: ACTIVITY TOLERANCE / RESPONSE TO OT: GOOD PARTICIPATION, GOOD MOTIVATION, and RECEPTIVE TO EDUCATION / TRAINING PROGRESS TOWARDS GOALS: PLEASE REFER TO CARE PLAN FROM THIS DATE FOR PROGRESS TOWARDS INDIVIDUAL GOALS PLAN: PLEASE REFER TO MOST RECENT INPATIENT REHABILITATION TEAM CONFERENCE NOTE FOR DISCHARGE PLAN, INCLUDING LOCATION, RECOMMENDED LEVEL OF SUPERVISION AND ARRANGEMENTS. FREQUENCY OF THERAPY: BID SESSIONS 5 DAYS / WEEK TO ADDRESS PREVIOUSLY ESTABLISHED DEFICITS AND GOALS Rosalia Marinelli OT 01/03/24 * Madie Oneill DIRECTOR OF RECRUITING - 01/03/2024 12:32 PM CDT Physical Therapy PT PROGRESS NOTE Gunjanshauna Gtz Jr. 78 y.o. 1945 Past Medical History: Diagnosis Date Acute gastric ulcer without hemorrhage or perforation Ulcer, gastric, acute - (Added by TW Conv) Alzheimer's dementia ([facility]) Asthma Back pain Cataract Closed fracture of left tibial plateau with delayed healing Closed fracture of right tibial plateau with delayed healing Closed nondisplaced osteochondral fracture of left patella with delayed healing Closed osteochondral fracture of patella, right, with delayed healing, subsequent encounter Clotting disorder (CMS/HCC) ([facility]) Complex tear of medial meniscus of left knee as current injury Complex tear of medial meniscus of right knee as current injury Cramps of lower extremity Diverticulitis of colon Easy bruisability Fatigue Frequent urination Gastroesophageal reflux disease GERD Hypothyroidism Incontinence of urine Muscle weakness Osteoarthritis Osteoarthritis Peptic ulcer Peptic ulcer disease Seizures ([facility]) 1997 last seizure in 1997 SOB (shortness of breath) on exertion Subchondral insufficiency fracture of condyle of left femur (CMS/HCC) ([facility]) Vertigo Vision changes Visual disturbance hx of double vision, corrective lenses Past Surgical History: Procedure Laterality Date CATARACT EXTRACTION, BILATERAL Bilateral 2018 HERNIA REPAIR 1980 Hiatal Hernia repair KNEE ARTHROSCOPY Bilateral THYROIDECTOMY 12/27/2019 Patient Active Problem List Diagnosis Primary osteoarthritis of both knees Subchondral insufficiency fracture of condyle of left femur (CMS/HCC) (HCC) Closed fracture of left tibial plateau with delayed healing Closed fracture of right tibial plateau with delayed healing Closed nondisplaced osteochondral fracture of left patella with delayed healing Closed osteochondral fracture of patella, right, with delayed healing, subsequent encounter Complex tear of medial meniscus of right knee as current injury Complex tear of medial meniscus of left knee as current injury Goiter Breast pain, right Cataract of right eye Diplopia Esotropia Hypertropia of right eye Skin lesion of breast Edema Intermittent claudication (HCC) Iron deficiency anemia Peripheral vascular disease (HCC) Pain due to total right knee replacement (CMS/HCC) (HCC) Hamstring tendinitis of right thigh Quadriceps weakness Idiopathic peripheral neuropathy Abnormality of gait and mobility Hx of total knee replacement, right Neuropathy (CMS/HCC) 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 Biceps tendinitis of left upper extremity Tear of left glenoid labrum Coffee ground emesis Upper GI bleed Acquired hypothyroidism Acute blood loss anemia Lung nodule Nocturnal cough Hiatal hernia Infrarenal abdominal aortic aneurysm (AAA) without rupture (HCC) Acute CVA (cerebrovascular accident) (HCC) Moderate malnutrition (CMS/HCC) Primary osteoarthritis of left knee TIME IN: 1108 TIME OUT: 1200 TIME IN PM: 230 TIME OUT PM: 315 SUBJECTIVE I want to take the stairs. Patient agreeable to therapy. PM: Patient states: She needs to see me get in and out of bed. Patient agreeable to therapy. MENTAL STATUS/ORIENTATION: Alert and oriented x4 PAIN: Pre-therapy pain level: none Pain location: na Pain intervention: na Post-therapy pain level/response to intervention: that knee is tired. No specific pain complaints. OBJECTIVE PRECAUTIONS: fall APPEARANCE/POSTURE: present in therapy gym, seated in w/c, chair alarm active, spouse present, two family friends present. PM: present in therapy gym, seated in w/C, chair alarm active, spouse present MOBILITY DOCUMENTATION: Bed Mobility: PM: sit to supine toward R side with MOD assist. Second trial uses leg home visit field care manager and MINassist. Supine to sit with v/c and CG assist. Spouse reporting that patient gets in on the opposite side of the bed tested this afternoon. Transfers: sit <> stand to rasheed-aide with CG assist. Good performance throughout session thisdate. PM: Same as in AM - CG assist. Standing / stepping pivot transfers with MIN assist this date. Good balance, one instance of unsafesequencing + one instance of mild balance loss. PM: STanding/ stepping pivot transfers with CG assist this PM session. Three trials; safe transfersthis afternoon. Ambulation: 20' x 2 - Second trial on carpeted surfaces with rasheed-aide. Ambulation on solid surfacewith CG assist. Ambulation on carpeted surface with MIN assist for stability. Good balance this date with gait. PM: 5' x 2 with rasheed-aide and CG assist. Step to pattern, increased forward lean this afternoon. Steady. Stairs: Ascends / descends single curb step with rasheed-aide and MIN assist. Steady, L knee holds during descent. Wheelchair management & propulsion: 75' with KATELIN LE only and one instance of running into obstacle on L side. Demonstrated ascending / descending single curb step with patient in W/C. Spouse able to perform with additional MIN assist for one trial. TREATMENT: As stated above & see education section. PM: Patient performs supine bridges and SLR x 15 reps KATELIN. MIN assist for L LE SLR. Patient performs seated HEP x 15 reps KATELIN with handout. Spouse also reviews and performs partial set with patient. Appearance/Posture at end of treatment session: returned to room, seated in recliner, lunch tray set up, chair alarm active, call light in reach, spouse present. EDUCATION: PATIENT/FAMILY EDUCATION: HEP, bed mobility, gait, stair navigation, transfer training, W/C up and down curb step Response to Education: needs reinforcement and verbalizes understanding ASSESSMENT Activity tolerance/response to PT: GOOD. Family member present for training this date. Patient ableto complete stairs, gait and transfers with safety this date. Improving. Barriers to learning: Physical and Cognitive Barriers to discharge: Pain, Limited family support, Cognitive deficit, Limited safety awareness, Unrealistic expectations, Decreased endurance, Decreased proprioception, Upper extremity weakness, Lower extremity weakness, Long standing deficits, and Stairs at home Patient continues progressing toward previously set goals which remain appropriate at this time. PLAN Patient to be seen bid 5x/week to address previously established deficits and goals. * Becky Montana MD - 01/03/2024 12:26 PM CDT INPATIENT REHABILITATION DAILY PROGRESS NOTE CHIEF COMPLAINT: right posterior limb internal capsule infarct SUBJECTIVE: present. Reports his throat is raspy from coughing up phlegm OBJECTIVE: VITALS: Vitals: 01/02/24 0758 01/02/24 1859 01/03/24 0709 01/03/24 0819 BP: 118/67 106/79 117/62 BP Location: Right arm Left arm Patient Position: Sitting Sitting Sitting Pulse: 83 69 83 Resp: Temp: 36.5 ??C (97.7 ??F) 36.3 ??C (97.3 ??F) 36.8 ??C (98.2 ??F) TempSrc: Oral Oral Oral SpO2: 94% 98% 94% 95% Weight: Height: PHYSICAL EXAM: General: no acute distress, brushing teeth HEENT: normocephalic, trachea midline Heart: rrr Lungs: ctab GI: soft, nontender Neuro: awake, alert LABS/RADIOLOGY/DIAGNOSTIC REVIEW Recent Labs Lab Units 01/03/24 0423 WBC K/cumm 8.0 HEMOGLOBIN g/dL 11.7* HEMATOCRIT % 35.6* PLATELETS K/cumm 228 Recent Labs Lab Units 01/03/24 0423 SODIUM mmol/L 141 POTASSIUM PLASMA mmol/L 4.2 CHLORIDE mmol/L 108 CO2 mmol/L 26 ANIONGAP mmol/L 7 GLUCOSE mg/dL 105 BUN SERUM mg/dL 12 CREATININE mg/dL 1.22 CALCIUM mg/dL 8.9 ALBUMIN g/dL 3.0* ALK PHOS Units/L 100 ALT Units/L 23 AST Units/L 19 BILIRUBIN TOTAL mg/dL 0.3 Recent Labs Lab Units 01/03/24 0423 GLUCOSE mg/dL 105 OT Functional Mobility: 12/20 Functional transfers: MOD-MAX OT Self Care: 12/20 Bathing: MAX Grooming: MAX UB dress:MOD LB dress: MAX Footwear: MAX Toileting:TOTAL NUMEROLOGIST Cognition: Mild/moderate cognitive deficits in short-term memory, insight, and problem solving/reasoning. Left visual inattention. NUMEROLOGIST Communication: Mild dysarthria NUMEROLOGIST Swallowing: Tolerating regular diet with thin liquids PT Functional Mobility: Bed Mobility: sit to supine with min assist for left LE. Supine to sit withcontact guard assist. Transfers: sit to stand with contact guard/min assist, stand to sit with contact guard assist with max verbal cues to complete turn before reaching for chair. Transfers wheelchair to recliner chair stand pivot transfer by holding onto chair with min assist. Ambulation: rasheed-aid 10'x1, 15'x1 with min assist. Patient with decreased gertrudis, step to gait pattern, decreased leftheel strike and push off, narrow SHANA, downward gaze, slight flexed posture at hips, decreased left knee stability with fatigue. Stairs: one step performed 2x: ascending with one handrail and mod assist the first time and min assist the second time. Descending both times with min assist of 1 and CG assist of 1 with decreased left knee stability noted second time. Wheelchair management & propulsion: using right UE and LE 60'x1 and supervision assist with increased time. No results found. MEDICATIONS: Current Facility-Administered Medications: acetaminophen (TYLENOL) tablet 650 mg, 650 mg, oral, Q6H PRN, Becky Montana MD, 650 mg at 01/03/24 0747 albuterol HFA (PROVENTIL HFA,VENTOLIN HFA,PROAIR HFA) 90 mcg/actuation inhaler 2 puff, 2 puff, inhalation, Q4H PRN (RT), Becky Montana MD aspirin chewable tablet 81 mg, 81 mg, oral, Daily, Becky Montana MD, 81 mg at 01/03/24 0748 calcium carbonate (TUMS) chewable tablet 1,000 mg, 400 mg of elemental calcium, oral, TID PRN, Becky Montana MD cetirizine (ZyrTEC) tablet 10 mg, 10 mg, oral, Daily, Becky Montana MD, 10 mg at 01/03/24 0748 donepeziL (ARICEPT) tablet 10 mg, 10 mg, oral, Nightly, Becky Montana MD, 10 mg at 01/02/242058 enoxaparin (LOVENOX) syringe 40 mg, 40 mg, subcutaneous, Daily-2100, Becky Rudd MD, 40 mg at 01/02/24 205 fluticasone furoate-vilanteroL (BREO ELLIPTA) 100-25 mcg/dose inhaler 1 puff, 1 puff, inhalation, Daily (RT), Becky Montana MD, 1 puff at 01/03/24 0819 fluticasone propionate (FLONASE) 50 mcg/actuation nasal spray 1 spray, 1 spray, each nostril, BID, Becky Montana MD, 1 spray at 01/03/24 0750 gabapentin (NEURONTIN) capsule 300 mg, 300 mg, oral, TID, Becky Montana MD, 300 mg at 01/03/24 0749 guaiFENesin ER (MUCINEX) extended release tablet 600 mg, 600 mg, oral, BID, Jl Montana MD, 600 mg at 01/03/24 0749 hydrocortisone 2.5 % cream, , topical, BID, Becky Montana MD, Given at 01/03/24 0800 levothyroxine (SYNTHROID) tablet 150 mcg, 150 mcg, oral, Daily - 0600, Becky Rudd MD, 150 mcg at 01/03/24 0629 lidocaine (LIDODERM) 5 % patch 1 patch, 1 patch, transdermal, Q24H, Becky Rudd MD, 1 patch at 01/03/24 1037 ofloxacin (OCUFLOX) 0.3 % ophthalmic solution 1 drop, 1 drop, each eye, Daily PRN, Becky Montana MD ondansetron (ZOFRAN) tablet 4 mg, 4 mg, oral, TID PRN, Becky Montana MD pantoprazole DR (PROTONIX) extended release tablet 40 mg, 40 mg, oral, BID, Jl Montana MD, 40 mg at 01/03/24 0749 ramelteon (ROZEREM) tablet 8 mg, 8 mg, oral, Nightly PRN, Becky Montana MD, 8 mg at 01/02/242058 rosuvastatin (CRESTOR) tablet 40 mg, 40 mg, oral, Daily, Becky Montana MD, 40 mg at 01/03/24 0749 senna-docusate (PERICOLACE) 8.6-50 mg per tablet 1 tablet, 1 tablet, oral, BID PRN, Becky Montana MD, 1 tablet at 12/19/23 0837 simethicone (MYLICON) chewable tablet 80 mg, 80 mg, oral, TID PRN, Becky Rudd MD tamsulosin (FLOMAX) extended release capsule 0.4 mg, 0.4 mg, oral, Nightly, Jl Montana MD, 0.4 mg at 01/02/242058 tiZANidine (ZANAFLEX) tablet 2 mg, 2 mg, oral, TID PRN, Becky Montana MD, 2 mg at 12/27/232025 traMADoL (ULTRAM) tablet 50 mg, 50 mg, oral, Q6H PRN, Becky Montana MD, 50 mg at 01/02/242225 ASSESSMENT/PLAN: MEDICAL PLAN OF CARE: 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 Reviewed home medicine - on spironolactone 25mg and lasix 20mg 12/26: controlled 12/27: controlled 12/28: controlled 12/29: controlled 12/30:controlled 01/02:controlled HLD: continue rosuvastatin 40mg AAA: no current medications Hypothyroidism: continue levothyroxine 150mcg GERD: continue pantoprazole 40mg bid Alzheimer: continue donepezil 10mg qhs Depression: no current medications Asthma: continue breo ellipta 100-25 daily BPH: continue flomax 0.4mg qhs 12/23: reviewed home medications - on oxybutynin 15mg and gemtesa 75mg for overactive bladder - hold for now Neuropathy: continue gabapentin 300mg tid Pain: Start Tylenol 650mg q6h prn, oxycodone 5mg q4h prn 12/22: lidoderm patch, decrease frequency of oxycodone to q6h prn 12/23: reviewed home medications, dc oxycodone and start tramadol 50mg q6h pr: heat/ice prn to left elbow Bowels: Start miralax daily, pericolace bid prn, simethicone prn 12/16: dulcolax 10mg x1 12/29: dc miralax Nausea: Start Zofran prn, Tums prn Congestion: start mucinex 600mg bid 12/23: start home cetirizine 10mg 12/26: start flonase bid 01/02: add vitamin c 500mg bid Knee pain: consult to orthopedics for injection per patient request 12/29 received injection yesterday Rash: hydrocortisone cream bid to right hand Diet: Reg/Thin HH 2G Na DVT ppx: restart lovenox Precautions: Fall Weightbearing status: full Code: Full Code Care discussed with Nursing Reviewed vital signs, intake, bowel, and bladder - as above Reviewed weekly cmp, cbc - wnl REHAB PLAN OF CARE: Patient's expected intensity and duration of participation in the interdisciplinary rehabilitation program and disciplines that comprise this team: Therapies required to achieve goals:The patient will benefit from integrated coordination of care from the following interdisciplinary services: Medical Supervision, 24 hours Rehabilitation Nursing, Physical Therapy, Occupational Therapy, Case Management; Social Work; Therapeutic Recreation; SpeechTherapy; Flatwork Feeder Frequency and duration of therapies expect to be:Expected intensity and frequency of participation in the interdisciplinary rehab program is: 3 hours per day except Wednesday. Expected intensity and frequency of Physical Therapy (PT): 1.5 hours per day over 5-7 days for the duration of length of stay Expected intensity and frequency of Occupational Therapy (OT): 1.5 hours per day over 5-7 days per week for the duration of length of stay Expected intensity and frequency of Speech Therapy (NUMEROLOGIST): 1 hour per day per day over 5-7 days per week for the duration of length of stay FUNCTIONAL CHANGE: Sit to stand: Ole I have seen Gunjan Gtz Jr. this date for a face to face visit. This patient has mobility limitations that significantly impair his ability to participate in one or more mobility-related activities of daily living such as toileting, feeding, dressing, grooming and bathing in customary locations inthe home and places him at a reasonably determined risk secondary to the attempts to perform these mobility-related activities of daily living. Gunjan Gtz Jr.'s mobility limitation cannot be sufficiently and safely resolved by use of appropriately fitted cane or walker secondary to CVA with left hemiparesis Use of a manual wheelchair will significantly improve Gunjan Gtz Jr.'s ability to participate in mobility-related activities of daily living and Hewill use it on a regular basis in the home. Gunjan Gtz Jr. has sufficient upper extremity function and other physical and mental capabilitiesneeded to safely self-propel the manual wheelchair that is provided in the home during a typical day. DISCHARGE PLANNING: Expected Discharge Date: Saturday 01/06 with home health PT OT Equipment: TBD Family Training: SW to set up Education: Follow up Appointments: PCP 1-2 weeks Becky Montana MD Physical Medicine and Rehabilitation I can be reached from 7am-7pm through [email or web address] chat. Hospitalist forest fire prevention manager from 7pm-7am * Rosalia Marinelli OT - 01/03/2024 10:00 AM CDT Occupational Therapy NOTE TYPE: OT TREATMENT ([facility] BEDSIDE SESSION) Patient's Name: Gunjan Gtz Jr. Age / Sex: 78 y.o. / male Room: [place] [id number] : 1945 Date: 01/03/24 Time In: 1000 Time Out: 1100 Patient Active Problem List Diagnosis Primary osteoarthritis of both knees Subchondral insufficiency fracture of condyle of left femur (CMS/HCC) ([facility]) Closed fracture of left tibial plateau with delayed healing Closed fracture of right tibial plateau with delayed healing Closed nondisplaced osteochondral fracture of left patella with delayed healing Closed osteochondral fracture of patella, right, with delayed healing, subsequent encounter Complex tear of medial meniscus of right knee as current injury Complex tear of medial meniscus of left knee as current injury Goiter Breast pain, right Cataract of right eye Diplopia Esotropia Hypertropia of right eye Skin lesion of breast Edema Intermittent claudication ([facility]) Iron deficiency anemia Peripheral vascular disease (HCC) Pain due to total right knee replacement (CMS/HCC) ([facility]) Hamstring tendinitis of right thigh Quadriceps weakness Idiopathic peripheral neuropathy Abnormality of gait and mobility Hx of total knee replacement, right Neuropathy (CMS/HCC) 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 Biceps tendinitis of left upper extremity Tear of left glenoid labrum Coffee ground emesis Upper GI bleed Acquired hypothyroidism Acute blood loss anemia Lung nodule Nocturnal cough Hiatal hernia Infrarenal abdominal aortic aneurysm (AAA) without rupture ([facility]) Acute CVA (cerebrovascular accident) ([facility]) Moderate malnutrition (CMS/[facility]) Primary osteoarthritis of left knee Past Medical History: Diagnosis Date Acute gastric ulcer without hemorrhage or perforation Ulcer, gastric, acute - (Added by TW Conv) Alzheimer's dementia ([facility]) Asthma Back pain Cataract Closed fracture of left tibial plateau with delayed healing Closed fracture of right tibial plateau with delayed healing Closed nondisplaced osteochondral fracture of left patella with delayed healing Closed osteochondral fracture of patella, right, with delayed healing, subsequent encounter Clotting disorder (CMS/HCC) ([facility]) Complex tear of medial meniscus of left knee as current injury Complex tear of medial meniscus of right knee as current injury Cramps of lower extremity Diverticulitis of colon Easy bruisability Fatigue Frequent urination Gastroesophageal reflux disease GERD Hypothyroidism Incontinence of urine Muscle weakness Osteoarthritis Osteoarthritis Peptic ulcer Peptic ulcer disease Seizures ([facility]) 1997 last seizure in 1997 SOB (shortness of breath) on exertion Subchondral insufficiency fracture of condyle of left femur (CMS/HCC) ([facility]) Vertigo Vision changes Visual disturbance hx of double vision, corrective lenses Past Surgical History: Procedure Laterality Date CATARACT EXTRACTION, BILATERAL Bilateral 2018 HERNIA REPAIR 1980 Hiatal Hernia repair KNEE ARTHROSCOPY Bilateral THYROIDECTOMY 12/27/2019 Precautions (Including Weight-Bearing): Fall risk and Bed / chair alarm SUBJECTIVE: Patient agreeable. present to participate in family training. Therapy Pain: Pre-therapy pain level: 0 / 10 Pain location: No pain - Location N/A Pain intervention(s): No pain - Intervention N/A Post-therapy pain level: 0 / 10 Pain scale used: 0-10 SCALE OBJECTIVE: APPEARANCE: Presentation upon OT arrival: Patient Sitting in bedside recliner Presentation upon OT departure: PATIENT Sitting in manual wheelchair with staff assistance Bed / chair alarm in place and activated upon OT departure: Yes Call light within arms reach of patient at end of session: No - due to patient taken to physical therapy gym Completed patient handoff and notified Physical Therapist / Physical Therapist Human Resources Clerk, name: Marcia, of patient's location and functional status upon completion of session. COGNITIVE / PERCEPTUAL: Alert and oriented to conversation SELF CARE: Patient's present for family training during all of ADL routine. assisted as able and cueing from OT as needed. educated to allow patient to attempt to complete himself before assisting. Patient demonstrated ability to verbalize to when he needs help and how to help him. Shower / Bathe Self Type of bathing: bathing in wet walk-in shower Location of shower / bathe self: Sitting on tub transfer bench Tasks completed: all components Components that required assistance (if applicable): MAX ASSIST RIGHT ARM, MAX ASSIST LEFT LOWER LEG, INCLUDING FOOT, and MAX ASSIST RIGHT LOWER LEG, INCLUDING FOOT Overall assist level: Partial / moderate assistance: Less than half (1% - 49%) Adaptive equipment (if applicable): handheld shower nozzle and tub bench Additional documentation: Patient's assisted with bathing in shower with min verbal cueing. Patient required max assist to wash RUE and bilateral feet. OT educated on shower safety (use of screw machine operator single spindle socks for traction, use of tub transfer bench). demonstrates and verbalizes understanding. Oral Hygiene Location of oral hygiene: Sitting in manual wheelchair Overall assist level: Supervision assistance / verbal cue(s) Additional documentation: Patient placed towel on lap to stabilize toothbrush when applying toothpaste Other Grooming Tasks Location of other grooming tasks: Sitting in manual wheelchair Tasks completed: COMBING HAIR and APPLYING DEODORANT Overall assist level: Partial / moderate assistance: Less than half (1% - 49%) Additional documentation: Patient required assist from to apply deodorant this date due to forgetting to put on before donning shirt UE Dressing Location of UE dressing: Sitting in manual wheelchair Tasks completed: Pullover shirt and Undershirt Overall assist level: Partial / moderate assistance: Less than half (1% - 49%) Additional documentation: Patient donned undershirt and tshirt using rasheed technique with set up andmin assist from to pull shirt down fully LE Dressing (Underwear / Pants) Location of LE dressing (Underwear / Pants): Sitting in manual wheelchair and Standing at grab bar Tasks completed: Elastic waist pants and Incontinence briefs as underwear Overall assist level: Substantial / maximal assistance: More than half (50% - 99%) Additional documentation: Patient required assist from to thread brief/pants over BLEs and to pull brief/pants over hips in standing. CGA from OT for standing balance at grab bar. Putting On / Taking Off Footwear Location of putting on / taking off footwear: Sitting in manual wheelchair Tasks completed: Sock(s) and Slip-on shoe(s) Overall assist level: Substantial / maximal assistance: More than half (50% - 99%) Additional documentation: N/A MOBILITY: Tub / shower transfer Location: WALK-IN SHOWER Overall assist level: Partial / moderate assistance: Less than half (1% - 49%) Device: GRAB BARS Additional documentation: MIN assist for stand pivot w/c <> tub transfer bench Transfers: Min assist for stand pivot from recliner to w/c using rasheed aide CGA for sit <> stand at grab bar OT provided family training regarding positioning of L arm during transfers with use of arm damari or sling. OT also demonstrated how to apply and remove gait belt for all transfers. verbalizes understanding, however verbalizes concern with ability to block patient's L knee if needed due to personal pain in knee. HEARING / SPEECH / VISION: Expression of ideas and wants Overall assist level: WITHOUT DIFFICULTY Understanding verbal and non-verbal content Overall assist level: UNDERSTANDS Caregiver present (yes / no): Yes: Education & training provided: Role of OT, OT plan of care, ADL training, Functional transfer training, Balance training, Safety education, and Family / Caregiver training ASSESSMENT: Activity tolerance / response to OT: GOOD PARTICIPATION, GOOD MOTIVATION, and RECEPTIVE TO EDUCATION / TRAINING Progress towards goals: Please refer to Care Plan from this date for progress towards individual goals. PLAN: Therapy Plan: Please refer to most recent Inpatient Rehabilitation Team Conference note for discharge plan, including location, recommended level of supervision, and arrangements. Frequency of therapy: BID SESSIONS 5 DAYS / WEEK TO ADDRESS PREVIOUSLY ESTABLISHED DEFICITS AND GOALS Rosalia Marinelli OT 01/03/24 * Paresh Prieto, NUMEROLOGIST - 01/03/2024 9:40 AM CDT SPEECH LANGUAGE PATHOLOGY PROGRESS NOTE Patient's Name: Gunjan Gtz Jr. : 1945 Age: 78 y.o. Time In: 9:10 Time Out: 9:40 Patient Active Problem List Diagnosis Primary osteoarthritis of both knees Subchondral insufficiency fracture of condyle of left femur (CMS/HCC) (HCC) Closed fracture of left tibial plateau with delayed healing Closed fracture of right tibial plateau with delayed healing Closed nondisplaced osteochondral fracture of left patella with delayed healing Closed osteochondral fracture of patella, right, with delayed healing, subsequent encounter Complex tear of medial meniscus of right knee as current injury Complex tear of medial meniscus of left knee as current injury Goiter Breast pain, right Cataract of right eye Diplopia Esotropia Hypertropia of right eye Skin lesion of breast Edema Intermittent claudication (HCC) Iron deficiency anemia Peripheral vascular disease (HCC) Pain due to total right knee replacement (CMS/HCC) (HCC) Hamstring tendinitis of right thigh Quadriceps weakness Idiopathic peripheral neuropathy Abnormality of gait and mobility Hx of total knee replacement, right Neuropathy (CMS/HCC) 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 Biceps tendinitis of left upper extremity Tear of left glenoid labrum Coffee ground emesis Upper GI bleed Acquired hypothyroidism Acute blood loss anemia Lung nodule Nocturnal cough Hiatal hernia Infrarenal abdominal aortic aneurysm (AAA) without rupture (HCC) Acute CVA (cerebrovascular accident) (HCC) Moderate malnutrition (CMS/HCC) Primary osteoarthritis of left knee Past Medical History: Diagnosis Date Acute gastric [...] with delayed healing, subsequent encounter Clotting disorder ([facility]) ([facility]) Complex tear of medial meniscus of left knee as current injury Complex tear of medial meniscus of right knee as current injury Cramps of lower extremity Diverticulitis of colon Easy bruisability Fatigue Frequent urination Gastroesophageal reflux disease GERD Hypothyroidism Incontinence of urine Muscle weakness Osteoarthritis Osteoarthritis Peptic ulcer Peptic ulcer disease Seizures ([facility]) 1997 last seizure in 1997 SOB (shortness of breath) on exertion Subchondral insufficiency fracture of condyle of left femur (CMS/HCC) ([facility]) Vertigo Vision changes Visual disturbance hx of double vision, corrective lenses Past Surgical History: Procedure Laterality Date CATARACT EXTRACTION, BILATERAL Bilateral 2018 HERNIA REPAIR 1979 Hiatal Hernia repair KNEE ARTHROSCOPY Bilateral THYROIDECTOMY 12/27/2019 SUBJECTIVE MENTAL STATUS: Patient awake and cooperative. Sitting up in recliner. Reports having a quiet weekend. PAIN: Pre Therapy Pain Level: 0/10 Pain Location: N/A Pain Intervention: N/A Post Therapy Pain Level/Response to Intervention: 0/10 OBJECTIVE PRECAUTIONS: Fall SWALLOWING: Patient continues to tolerate regular consistency diet/thin liquids. COGNITION: Decreased short term memory, insight, and thought organization COMMUNICATION: Mild dysarthric speech TREATMENT ACTIVITIES: Provide appropriate solutions to household situation with 80% accuracy Conversational task with 90% intelligibility EDUCATION: PATIENT/FAMILY EDUCATION: Discussed discharge recommendations and concerns Response to Education: Needs reinforcement ASSESSMENT Activity Tolerance/Response to S.T.: Tolerated speech therapy session with no complaints Barriers to learning: Vision, Cognition Current status: Patient with mild/moderate decrease with insight into deficits. Progress toward goals: Patient continues to progress toward previously set goals which remain appropriate at this time. PLAN Multi-Disciplinary Problems (from Speech Therapy) Active Problems Problem: [place] [facility] [place]: 12/16/23 Goal Start Date Expected End Date End Date [facility] [place]16[place]23 01/06/24 -- Goal Details: Patient to perform short term memory tasks using compensatory strategies with 80% accuracy. Goal Start Date Expected End Date End Date [facility] [place] 12/16/23 01/06/24 -- Goal Details: Patient to perform functional problem solving/reasoning tasks with 80% accuracy. Goal Start Date Expected End Date End Date [facility] [place] 12/16/23 01/06/24 -- Goal Details: Patient to attend to left visual field 80% of the time given 2-3 verbal prompts. Goal Start Date Expected End Date End Date NUMEROLOGIST - M[facility] 4 12/16/23 01/06/24 -- Goal Details: Patient's speech to be 90% intelligible during conversational tasks utilizing compensatory strategies. Frequency of Treatment: BID, 5xs weekly Recommendations: Recommend home with 24 hour supervision at discharge. If this is the last note, consider this the discharge summary. * Felicity Blank COTA - 01/01/2024 11:45 AM CDT Occupational Therapy NOTE TYPE: OT TREATMENT ([facility] DEPARTMENT SESSION) PATIENT'S NAME: Gunjan Gtz JrMason AGE / SEX: 78 y.o. / male ROOM: [place] [id number] : 1945 DATE: 01/01/24 TIME IN: 14:03 TIME OUT: 14:33 Patient Active Problem List Diagnosis Primary osteoarthritis of both knees Subchondral insufficiency fracture of condyle of left femur (CMS/HCC) ([facility]) Closed fracture of left tibial plateau with delayed healing Closed fracture of right tibial plateau with delayed healing Closed nondisplaced osteochondral fracture of left patella with delayed healing Closed osteochondral fracture of patella, right, with delayed healing, subsequent encounter Complex tear of medial meniscus of right knee as current injury Complex tear of medial meniscus of left knee as current injury Goiter Breast pain, right Cataract of right eye Diplopia Esotropia Hypertropia of right eye Skin lesion of breast Edema Intermittent claudication (HCC) Iron deficiency anemia Peripheral vascular disease (HCC) Pain due to total right knee replacement (CMS/HCC) (HCC) Hamstring tendinitis of right thigh Quadriceps weakness Idiopathic peripheral neuropathy Abnormality of gait and mobility Hx of total knee replacement, right Neuropathy (CMS/HCC) 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 Biceps tendinitis of left upper extremity Tear of left glenoid labrum Coffee ground emesis Upper GI bleed Acquired hypothyroidism Acute blood loss anemia Lung nodule Nocturnal cough Hiatal hernia Infrarenal abdominal aortic aneurysm (AAA) without rupture ([facility]) Acute CVA (cerebrovascular accident) ([facility]) Moderate malnutrition (CMS/HCC) Primary osteoarthritis of left knee Past Medical History: Diagnosis Date Acute gastric ulcer without hemorrhage or perforation Ulcer, gastric, acute - (Added by TW Conv) Alzheimer's dementia ([facility]) Asthma Back pain Cataract Closed fracture of left tibial plateau with delayed healing Closed fracture of right tibial plateau with delayed healing Closed nondisplaced osteochondral fracture of left patella with delayed healing Closed osteochondral fracture of patella, right, with delayed healing, subsequent encounter Clotting disorder (CMS/HCC) ([facility]) Complex tear of medial meniscus of left knee as current injury Complex tear of medial meniscus of right knee as current injury Cramps of lower extremity Diverticulitis of colon Easy bruisability Fatigue Frequent urination Gastroesophageal reflux disease GERD Hypothyroidism Incontinence of urine Muscle weakness Osteoarthritis Osteoarthritis Peptic ulcer Peptic ulcer disease Seizures ([facility]) 1997 last seizure in 1997 SOB (shortness of breath) on exertion Subchondral insufficiency fracture of condyle of left femur (CMS/HCC) ([facility]) Vertigo Vision changes Visual disturbance hx of double vision, corrective lenses Past Surgical History: Procedure Laterality Date CATARACT EXTRACTION, BILATERAL Bilateral 2018 HERNIA REPAIR 1979 Hiatal Hernia repair KNEE ARTHROSCOPY Bilateral THYROIDECTOMY 12/27/2019 PRECAUTIONS (INCLUDING WEIGHT-BEARING): Fall risk and Bed / chair alarm SUBJECTIVE: I'm okay. I'm stiff though, I need to get up out of this recliner. THERAPY PAIN: PRE-THERAPY PAIN LEVEL: 0 / 10 PAIN LOCATION: No pain - Location N/A PAIN INTERVENTION(S): No pain - Intervention N/A POST-THERAPY PAIN LEVEL: 0 / 10 PAIN SCALE USED: 0-10 SCALE OBJECTIVE: APPEARANCE: PRESENTATION UPON OT ARRIVAL: PATIENT Sitting in bedside recliner PRESENTATION UPON OT DEPARTURE: PATIENT Sitting in bedside chair BED / CHAIR ALARM IN PLACE AND ACTIVATED UPON OT DEPARTURE: Yes CALL LIGHT WITHIN ARMS REACH OF PATIENT AT END OF SESSION: Yes COMPLETED PATIENT HANDOFF AND NOTIFIED SEO TEAM LEAD / RN, NAME: Gela, OF PATIENT'S LOCATION AND FUNCTIONAL STATUS UPON COMPLETION OF SESSION COGNITIVE / PERCEPTUAL: A&O x 4 BALANCE: STATIC SITTING: Good MOBILITY: TRANSFERS: MIN assist x 1 from seated at recliner > standing at recliner with rasheed aid MIN with intermittent MOD assist from standing at recliner > seated at w/c with use of rasheed aid d/t patient reporting to therapist of L knee 'giving out' MIN assist x 1 from seated at w/c > standing at recliner > seated at recliner with use of no device and use of recliner armrests only LIVING SKILLS: IADL ACTIVITY: Patient was presented with a 7-day weekly pill supply chain planner, organized into 4 sections: Morning, Noon, Evening and Bedtime. Patient was provided with 5 simulated medications with various instructions on each pill bottle. Patient instructed to use the instructions on each pill bottle to fill in the supply chain planner for the entire week. Patient was able to complete the task with 100 % accuracy, requiring MIN assist to open pill caps and no vcs. Patient was able to open each bottle and manipulatethe simulated pills with MIN assist. At this time patient needs SPV assist with medication management. Caregiver () was present and engaged in afternoon session. (OVERALL ASSIST LEVEL): MIN assist for pill caps only LOCATION: seated at table in OT gym in w/c CAREGIVER PRESENT (YES / NO): Yes: EDUCATION & TRAINING PROVIDED: Role of OT, OT plan of care, Compensatory ADL strategies, Functional transfer training, IADL training, Safety education, and Medication management ASSESSMENT: ACTIVITY TOLERANCE / RESPONSE TO OT: GOOD PARTICIPATION, GOOD MOTIVATION, and RECEPTIVE TO EDUCATION / TRAINING PROGRESS TOWARDS GOALS: PLEASE REFER TO CARE PLAN FROM THIS DATE FOR PROGRESS TOWARDS INDIVIDUAL GOALS PLAN: PLEASE REFER TO MOST RECENT INPATIENT REHABILITATION TEAM CONFERENCE NOTE FOR DISCHARGE PLAN, INCLUDING LOCATION, RECOMMENDED LEVEL OF SUPERVISION AND ARRANGEMENTS. FREQUENCY OF THERAPY: BID SESSIONS 5 DAYS / WEEK TO ADDRESS PREVIOUSLY ESTABLISHED DEFICITS AND GOALS ANGI Guido 01/01/24 * Kate Raymundo, DIRECTOR OF RECRUITING - 01/01/2024 9:15 AM CDT PT PROGRESS NOTE Gunjan Gtz Jr. 78 y.o. 1945 Past Medical History: Diagnosis Date Acute gastric [...] delayed healing, subsequent encounter Clotting disorder (CMS/HCC) (HCC) Complex tear of medial meniscus of left knee as current injury Complex tear of medial meniscus of right knee as current injury Cramps of lower extremity Diverticulitis of colon Easy bruisability Fatigue Frequent urination Gastroesophageal reflux disease GERD Hypothyroidism Incontinence of urine Muscle weakness Osteoarthritis Osteoarthritis Peptic ulcer Peptic ulcer disease Seizures (HCC) 1997 last seizure in 1997 SOB (shortness of breath) on exertion Subchondral insufficiency fracture of condyle of left femur (CMS/HCC) (HCC) Vertigo Vision changes Visual disturbance hx of double vision, corrective lenses Past Surgical History: Procedure Laterality Date CATARACT EXTRACTION, BILATERAL Bilateral 2018 HERNIA REPAIR 1979 Hiatal Hernia repair KNEE ARTHROSCOPY Bilateral THYROIDECTOMY 12/27/2019 Patient Active Problem List Diagnosis Primary osteoarthritis of both knees Subchondral insufficiency fracture of condyle of left femur (CMS/HCC) (HCC) Closed fracture of left tibial plateau with delayed healing Closed fracture of right tibial plateau with delayed healing Closed nondisplaced osteochondral fracture of left patella with delayed healing Closed osteochondral fracture of patella, right, with delayed healing, subsequent encounter Complex tear of medial meniscus of right knee as current injury Complex tear of medial meniscus of left knee as current injury Goiter Breast pain, right Cataract of right eye Diplopia Esotropia Hypertropia of right eye Skin lesion of breast Edema Intermittent claudication (HCC) Iron deficiency anemia Peripheral vascular disease (HCC) Pain due to total right knee replacement (CMS/HCC) ([facility]) Hamstring tendinitis of right thigh Quadriceps weakness Idiopathic peripheral neuropathy Abnormality of gait and mobility Hx of total knee replacement, right Neuropathy (CMS/HCC) 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 Biceps tendinitis of left upper extremity Tear of left glenoid labrum Coffee ground emesis Upper GI bleed Acquired hypothyroidism Acute blood loss anemia Lung nodule Nocturnal cough Hiatal hernia Infrarenal abdominal aortic aneurysm (AAA) without rupture ([facility]) Acute CVA (cerebrovascular accident) ([facility]) Moderate malnutrition (CMS/HCC) Primary osteoarthritis of left knee TIME IN: 9:15 AM TIME OUT: 10:15 AM SUBJECTIVE Pt reports he is ready. MENTAL STATUS/ORIENTATION: Alert and oriented x4 PAIN: Pre-therapy pain level: 0/10 Pain location: NA Pain intervention: Na Post-therapy pain level/response to intervention: 0/10 OBJECTIVE PRECAUTIONS: Fall APPEARANCE/POSTURE: Pt was seated in w/c with chair alarm on. MOBILITY DOCUMENTATION: Transfers: Pt completed sit to stand/ stand to sit with min A. Pt completed stand pivot to the Right with mod A. Ambulation: Pt ambulated with rasheed walker 20 ft x 3 with min- mod A. Pt demonstrates anterior lean,L knee weakness needs L knee block occasionally. Pt demos good sequencing with gait and rasheed walker. Wheelchair management & propulsion: Pt propelled around gym x 80'. Pt completed obstacle coursewith cones and yellow foam to work on turns needed additional time and cues to avoid cones. TREATMENT: Pt completed seated BLE exercise such as Exercise Rep WT Marching X 10 LAQ X 10 Hip IR/ER X 10 Hip Abduction X 10 Green TB Mini Squats X 10 (3+3+4) Green TB Appearance/Posture at end of treatment session: Pt seated in w/c with chair alarm on, call light and table within arms reach. EDUCATION: PATIENT/FAMILY EDUCATION: gait, strengthen, wheelchair propulsion Response to Education: demonstrated understanding ASSESSMENT Activity tolerance/response to PT: Pt tolerated exercise well with no adverse reaction. Barriers to learning: Physical Barriers to discharge: Pain, Limited family support, No caregiver support, Limited safety awareness, Limited insight into deficits, Decreased endurance, Decreased proprioception, Upper extremity weakness, Lower extremity weakness, and Stairs at home Patient continues progressing toward previously set goals which remain appropriate at this time. PLAN Patient to be seen bid 5x/week to address previously established deficits and goals. * Madie Oneill PTA - 12/31/2023 2:28 PM CDT Physical Therapy PT PROGRESS NOTE Gunjan Gtz Jr. 78 y.o. 1945 Past Medical History: Diagnosis Date Acute gastric [...] delayed healing, subsequent encounter Clotting disorder (CMS/HCC) (HCC) Complex tear of medial meniscus of left knee as current injury Complex tear of medial meniscus of right knee as current injury Cramps of lower extremity Diverticulitis of colon Easy bruisability Fatigue Frequent urination Gastroesophageal reflux disease GERD Hypothyroidism Incontinence of urine Muscle weakness Osteoarthritis Osteoarthritis Peptic ulcer Peptic ulcer disease Seizures (HCC) 1997 last seizure in 1997 SOB (shortness of breath) on exertion Subchondral insufficiency fracture of condyle of left femur (CMS/HCC) (HCC) Vertigo Vision changes Visual disturbance hx of double vision, corrective lenses Past Surgical History: Procedure Laterality Date CATARACT EXTRACTION, BILATERAL Bilateral 2018 HERNIA REPAIR 1979 Hiatal Hernia repair KNEE ARTHROSCOPY Bilateral THYROIDECTOMY 12/27/2019 Patient Active Problem List Diagnosis Primary osteoarthritis of both knees Subchondral insufficiency fracture of condyle of left femur (CMS/HCC) (HCC) Closed fracture of left tibial plateau with delayed healing Closed fracture of right tibial plateau with delayed healing Closed nondisplaced osteochondral fracture of left patella with delayed healing Closed osteochondral fracture of patella, right, with delayed healing, subsequent encounter Complex tear of medial meniscus of right knee as current injury Complex tear of medial meniscus of left knee as current injury Goiter Breast pain, right Cataract of right eye Diplopia Esotropia Hypertropia of right eye Skin lesion of breast Edema Intermittent claudication (HCC) Iron deficiency anemia Peripheral vascular disease (HCC) Pain due to total right knee replacement (CMS/HCC) ([facility]) Hamstring tendinitis of right thigh Quadriceps weakness Idiopathic peripheral neuropathy Abnormality of gait and mobility Hx of total knee replacement, right Neuropathy (CMS/HCC) 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 Biceps tendinitis of left upper extremity Tear of left glenoid labrum Coffee ground emesis Upper GI bleed Acquired hypothyroidism Acute blood loss anemia Lung nodule Nocturnal cough Hiatal hernia Infrarenal abdominal aortic aneurysm (AAA) without rupture ([facility]) Acute CVA (cerebrovascular accident) ([facility]) Moderate malnutrition (CMS/HCC) Primary osteoarthritis of left knee TIME IN: 225 TIME OUT: 310 SUBJECTIVE At least it had taste. Patient reporting his lunch was ok. MENTAL STATUS/ORIENTATION: Alert and oriented x4 PAIN: Pre-therapy pain level: none Pain location: na Pain intervention: na Post-therapy pain level/response to intervention: none OBJECTIVE PRECAUTIONS: fall APPEARANCE/POSTURE: present in therapy gym, seated in W/C, sleeping but easy to rouse MOBILITY DOCUMENTATION: Bed Mobility: NT Transfers: sit <> stand from W/C, and from chair with arms. CG assist to MIN assist dependentupon body mechanics and forward weight shifting Ambulation: 22' with rasheed-aide and MIN assist. Good sequencing, minor L lean, L knee weakness. Stairs: NT Wheelchair management & propulsion: Patient propels chair around 6 cones and through simulated doorway both forward and backward, over carpeted surfaces, 150' total. Poor attention to L side, multiple instances of bumping into obstacles increased during forward propulsion compared to backward propulsion. TREATMENT: Transfers, W/C mobility, gait. Appearance/Posture at end of treatment session: returned to room, seated in recliner, chair alarm active, call light in reach EDUCATION: PATIENT/FAMILY EDUCATION: W/C management / safety Response to Education: needs reinforcement ASSESSMENT Activity tolerance/response to PT: GOOD Patient is improving, continues with strength, coordinationand safety deficits. Barriers to learning: unchanged from AM Barriers to discharge: unchanged from AM Patient continues progressing toward previously set goals which remain appropriate at this time. PLAN Patient to be seen bid 5x/week to address previously established deficits and goals. * Rosalia Marinelli, OT - 12/31/2023 1:30 PM CDT Occupational Therapy NOTE TYPE: OT TREATMENT ([facility] DEPARTMENT SESSION) PATIENT'S NAME: Gunjan Gtz Jr. AGE / SEX: 78 y.o. / male ROOM: [place] [id number] : 1945 DATE: 12/31/23 TIME IN: 1330 TIME OUT: 1411 Patient Active Problem List Diagnosis Primary osteoarthritis of both knees Subchondral insufficiency fracture of condyle of left femur (CMS/HCC) ([facility]) Closed fracture of left tibial plateau with delayed healing Closed fracture of right tibial plateau with delayed healing Closed nondisplaced osteochondral fracture of left patella with delayed healing Closed osteochondral fracture of patella, right, with delayed healing, subsequent encounter Complex tear of medial meniscus of right knee as current injury Complex tear of medial meniscus of left knee as current injury Goiter Breast pain, right Cataract of right eye Diplopia Esotropia Hypertropia of right eye Skin lesion of breast Edema Intermittent claudication (HCC) Iron deficiency anemia Peripheral vascular disease (HCC) Pain due to total right knee replacement (CMS/HCC) ([facility]) Hamstring tendinitis of right thigh Quadriceps weakness Idiopathic peripheral neuropathy Abnormality of gait and mobility Hx of total knee replacement, right Neuropathy (CMS/HCC) 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 Biceps tendinitis of left upper extremity Tear of left glenoid labrum Coffee ground emesis Upper GI bleed Acquired hypothyroidism Acute blood loss anemia Lung nodule Nocturnal cough Hiatal hernia Infrarenal abdominal aortic aneurysm (AAA) without rupture ([facility]) Acute CVA (cerebrovascular accident) ([facility]) Moderate malnutrition (CMS/HCC) Primary osteoarthritis of left knee Past Medical History: Diagnosis Date Acute gastric ulcer without hemorrhage or perforation Ulcer, gastric, acute - (Added by TW Conv) Alzheimer's dementia ([facility]) Asthma Back pain Cataract Closed fracture of left tibial plateau with delayed healing Closed fracture of right tibial plateau with delayed healing Closed nondisplaced osteochondral fracture of left patella with delayed healing Closed osteochondral fracture of patella, right, with delayed healing, subsequent encounter Clotting disorder (CMS/[facility]) ([facility]) Complex tear of medial meniscus of left knee as current injury Complex tear of medial meniscus of right knee as current injury Cramps of lower extremity Diverticulitis of colon Easy bruisability Fatigue Frequent urination Gastroesophageal reflux disease GERD Hypothyroidism Incontinence of urine Muscle weakness Osteoarthritis Osteoarthritis Peptic ulcer Peptic ulcer disease Seizures ([facility]) 1997 last seizure in 1997 SOB (shortness of breath) on exertion Subchondral insufficiency fracture of condyle of left femur ([facility]) ([facility]) Vertigo Vision changes Visual disturbance hx of double vision, corrective lenses Past Surgical History: Procedure Laterality Date CATARACT EXTRACTION, BILATERAL Bilateral 2018 HERNIA REPAIR 1980 Hiatal Hernia repair KNEE ARTHROSCOPY Bilateral THYROIDECTOMY 12/27/2019 PRECAUTIONS (INCLUDING WEIGHT-BEARING): Fall risk and Bed / chair alarm SUBJECTIVE: Patient agreeable THERAPY PAIN: PRE-THERAPY PAIN LEVEL: 0 / 10 PAIN LOCATION: No pain - Location N/A PAIN INTERVENTION(S): No pain - Intervention N/A POST-THERAPY PAIN LEVEL: 0 / 10 PAIN SCALE USED: 0-10 SCALE OBJECTIVE: APPEARANCE: PRESENTATION UPON OT ARRIVAL: PATIENT Sitting in manual wheelchair at bedside PRESENTATION UPON OT DEPARTURE: PATIENT Sitting in manual wheelchair with staff assistance BED / CHAIR ALARM IN PLACE AND ACTIVATED UPON OT DEPARTURE: Yes CALL LIGHT WITHIN ARMS REACH OF PATIENT AT END OF SESSION: No - due to patient taken to physical therapy gym COMPLETED PATIENT HANDOFF AND NOTIFIED Physical Therapist / Physical Therapist Human Resources Clerk, NAME: Marcia, OF PATIENT'S LOCATION AND FUNCTIONAL STATUS UPON COMPLETION OF SESSION COGNITIVE / PERCEPTUAL: Alert and oriented to conversation UE THERAPEUTIC EXERCISES: EXERCISE TYPE: L UE SROM EXERCISE(S) COMPLETED WITH NUMBER OF REPETITIONS: SHOULDER FLEXION 10 , ELBOW FLEXION 10, ELBOW EXTENSION 10 , WRIST FLEXION 10, WRIST EXTENSION 10, FINGER FLEXION 10, and FINGER EXTENSION 10 NUMBER OF SETS: 1 ASSIST LEVEL: MIN physical assistance LOCATION OF COMPLETION: sitting in w/c TOLERANCE: Good tolerance to activity. Patient required min verbal cues and min physical assist forcorrect completion MOBILITY: CAR TRANSFER LOCATION: CAR SIMULATOR SET AT HEIGHT OF 16 INCHES PER PATIENT'S HOME VEHICLE OVERALL ASSIST LEVEL: Partial / moderate assistance: Less than half (1% - 49%) DEVICE: RASHEED CANE ADDITIONAL DOCUMENTATION: MIN assist overall. Patient required min assists for sit <> stand from car simulator using rasheed aide LIVING SKILLS: ACTIVITIES: E-stim for muscle re-education (OVERALL ASSIST LEVEL): hand over hand LOCATION: seated in w/c ACTIVITY DESCRIPTION: Patient participated in E-stim activity for L elbow muscle re-education with the following settings: Wavelength:VMS , with cycle time of 4/12, ramp at 2 seconds, with amplitude at 35 mA CC. Patient demonstrated good tolerance for activity. Patient participated in activity for 10 minutes. CAREGIVER PRESENT (YES / NO): No EDUCATION & TRAINING PROVIDED: Role of OT, OT plan of care, Functional transfer training, Safety education, and UE home exercise program ASSESSMENT: ACTIVITY TOLERANCE / RESPONSE TO OT: GOOD PARTICIPATION, GOOD MOTIVATION, and RECEPTIVE TO EDUCATION / TRAINING PROGRESS TOWARDS GOALS: PLEASE REFER TO CARE PLAN FROM THIS DATE FOR PROGRESS TOWARDS INDIVIDUAL GOALS PLAN: PLEASE REFER TO MOST RECENT INPATIENT REHABILITATION TEAM CONFERENCE NOTE FOR DISCHARGE PLAN, INCLUDING LOCATION, RECOMMENDED LEVEL OF SUPERVISION AND ARRANGEMENTS. FREQUENCY OF THERAPY: BID SESSIONS 5 DAYS / WEEK TO ADDRESS PREVIOUSLY ESTABLISHED DEFICITS AND GOALS Rosalia Marinelli OT 12/31/23 * Paresh Prieto, NUMEROLOGIST - 12/31/2023 1:17 PM CDT SPEECH LANGUAGE PATHOLOGY PROGRESS NOTE Patient's Name: Gunjan Gtz JrMason : 1945 Age: 78 y.o. Time In: 13:05 Time Out: 13:30 Patient Active Problem List Diagnosis Primary osteoarthritis of both knees Subchondral insufficiency fracture of condyle of left femur (CMS/HCC) ([facility]) Closed fracture of left tibial plateau with delayed healing Closed fracture of right tibial plateau with delayed healing Closed nondisplaced osteochondral fracture of left patella with delayed healing Closed osteochondral fracture of patella, right, with delayed healing, subsequent encounter Complex tear of medial meniscus of right knee as current injury Complex tear of medial meniscus of left knee as current injury Goiter Breast pain, right Cataract of right eye Diplopia Esotropia Hypertropia of right eye Skin lesion of breast Edema Intermittent claudication ([facility]) Iron deficiency anemia Peripheral vascular disease ([facility]) Pain due to total right knee replacement (CMS/HCC) ([facility]) Hamstring tendinitis of right thigh Quadriceps weakness Idiopathic peripheral neuropathy Abnormality of gait and mobility Hx of total knee replacement, right Neuropathy (CMS/HCC) 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 Biceps tendinitis of left upper extremity Tear of left glenoid labrum Coffee ground emesis Upper GI bleed Acquired hypothyroidism Acute blood loss anemia Lung nodule Nocturnal cough Hiatal hernia Infrarenal abdominal aortic aneurysm (AAA) without rupture ([facility]) Acute CVA (cerebrovascular accident) ([facility]) Moderate malnutrition (CMS/[facility]) Primary osteoarthritis of left knee Past Medical History: Diagnosis Date Acute gastric ulcer without hemorrhage or perforation Ulcer, gastric, acute - (Added by TW Conv) Alzheimer's dementia ([facility]) Asthma Back pain Cataract Closed fracture of left tibial plateau with delayed healing Closed fracture of right tibial plateau with delayed healing Closed nondisplaced osteochondral fracture of left patella with delayed healing Closed osteochondral fracture of patella, right, with delayed healing, subsequent encounter Clotting disorder (CMS/HCC) ([facility]) Complex tear of medial meniscus of left knee as current injury Complex tear of medial meniscus of right knee as current injury Cramps of lower extremity Diverticulitis of colon Easy bruisability Fatigue Frequent urination Gastroesophageal reflux disease GERD Hypothyroidism Incontinence of urine Muscle weakness Osteoarthritis Osteoarthritis Peptic ulcer Peptic ulcer disease Seizures ([facility]) 1997 last seizure in 1997 SOB (shortness of breath) on exertion Subchondral insufficiency fracture of condyle of left femur (CMS/HCC) ([facility]) Vertigo Vision changes Visual disturbance hx of double vision, corrective lenses Past Surgical History: Procedure Laterality Date CATARACT EXTRACTION, BILATERAL Bilateral 2018 HERNIA REPAIR 1979 Hiatal Hernia repair KNEE ARTHROSCOPY Bilateral THYROIDECTOMY 12/27/2019 SUBJECTIVE MENTAL STATUS: Patient awake and cooperative. Sitting up in wheelchair. Calling to find out where nail file is. PAIN: Pre Therapy Pain Level: 0/10 Pain Location: N/A Pain Intervention: N/A Post Therapy Pain Level/Response to Intervention: 0/10 OBJECTIVE PRECAUTIONS: Fall SWALLOWING: Patient continues to tolerate regular consistency diet/thin liquids. Decreased awareness of excess secretions resulting in anterior spillage. COGNITION: Decreased insight and safety awareness. COMMUNICATION: Mild dysarthric speech. TREATMENT ACTIVITIES: Sequence steps for transfers with 100% accuracy Medication management task with 100% accuracy EDUCATION: PATIENT/FAMILY EDUCATION: Reviewed weekend therapy schedule with patient Response to Education: Understanding verbalized ASSESSMENT Activity Tolerance/Response to S.T.: Tolerated speech therapy session with no complaints Barriers to learning: Cognition, Vision Current status: Patient continues to exhibit decreased insight and safety awareness regarding functional tasks. Progress toward goals: Patient continues to progress toward previously set goals which remain appropriate at this time. PLAN Multi-Disciplinary Problems (from Speech Therapy) Active Problems Problem: [place]OLOG[place] [facility] [place]: 12/16/23 Goal Start Date Expected End Date End Date [facility] 1 12/16/23 01/06/24 -- Goal Details: Patient to perform short term memory tasks using compensatory strategies with 80% accuracy. Goal Start Date Expected End Date End Date [facility] 2 12/16/23 01/06/24 -- Goal Details: Patient to perform functional problem solving/reasoning tasks with 80% accuracy. Goal Start Date Expected End Date End Date [facility] 3 12/16/23 01/06/24 -- Goal Details: Patient to attend to left visual field 80% of the time given 2-3 verbal prompts. Goal Start Date Expected End Date End Date [facility] 4 12/16/23 01/06/24 -- Goal Details: Patient's speech to be 90% intelligible during conversational tasks utilizing compensatory strategies. Frequency of Treatment: BID, 5xs weekly Recommendations: Recommend home with 24 hour supervision at discharge. If this is the last note, consider this the discharge summary. * Becky Montana MD - 12/31/2023 11:46 AM CDT INPATIENT REHABILITATION DAILY PROGRESS NOTE CHIEF COMPLAINT: right posterior limb internal capsule infarct SUBJECTIVE: No needs today. OBJECTIVE: VITALS: Vitals: 12/30/23 0712 12/30/23 1924 12/31/23 0719 12/31/23 0944 BP: 123/64 139/66 120/60 BP Location: Right arm Left arm Patient Position: Sitting Sitting Sitting Pulse: 66 57 76 Resp: Temp: 36.2 ??C (97.2 ??F) 36.6 ??C (97.8 ??F) 36.7 ??C (98.1 ??F) TempSrc: Oral Oral Oral SpO2: 96% 96% 91% 96% Weight: Height: PHYSICAL EXAM: General: no acute distress, in chair HEENT: normocephalic, trachea midline Heart: rrr Lungs: ctab GI: soft, nontender Neuro: awake, alert LABS/RADIOLOGY/DIAGNOSTIC REVIEW Recent Labs Lab Units 12/27/23 0438 WBC K/cumm 6.7 HEMOGLOBIN g/dL 12.8* HEMATOCRIT % 39.3 PLATELETS K/cumm 235 Recent Labs Lab Units 12/27/23 0438 SODIUM mmol/L 141 POTASSIUM PLASMA mmol/L 4.2 CHLORIDE mmol/L 107 CO2 mmol/L 26 ANIONGAP mmol/L 8 GLUCOSE mg/dL 107 BUN SERUM mg/dL 18 CREATININE mg/dL 1.30 CALCIUM mg/dL 8.9 ALBUMIN g/dL 3.2* ALK PHOS Units/L 115 ALT Units/L 22 AST Units/L 23 BILIRUBIN TOTAL mg/dL 0.5 Recent Labs Lab Units 12/27/23 0438 GLUCOSE mg/dL 107 OT Functional Mobility: 12/20 Functional transfers: MOD-MAX OT Self Care: 12/20 Bathing: MAX Grooming: MAX UB dress:MOD LB dress: MAX Footwear: MAX Toileting:TOTAL NUMEROLOGIST Cognition: Mild/moderate cognitive deficits in short-term memory, insight, and problem solving/reasoning. Left visual inattention. NUMEROLOGIST Communication: Mild dysarthria NUMEROLOGIST Swallowing: Tolerating regular diet with thin liquids PT Functional Mobility: Bed Mobility: sit to supine with min assist for left LE. Supine to sit withcontact guard assist. Transfers: sit to stand with contact guard/min assist, stand to sit with contact guard assist with max verbal cues to complete turn before reaching for chair. Transfers wheelchair to recliner chair stand pivot transfer by holding onto chair with min assist. Ambulation: rasheed-aid 10'x1, 15'x1 with min assist. Patient with decreased gertrudis, step to gait pattern, decreased leftheel strike and push off, narrow SHANA, downward gaze, slight flexed posture at hips, decreased left knee stability with fatigue. Stairs: one step performed 2x: ascending with one handrail and mod assist the first time and min assist the second time. Descending both times with min assist of 1 and CG assist of 1 with decreased left knee stability noted second time. Wheelchair management & propulsion: using right UE and LE 60'x1 and supervision assist with increased time. No results found. MEDICATIONS: Current Facility-Administered Medications: acetaminophen (TYLENOL) tablet 650 mg, 650 mg, oral, Q6H PRN, Becky Montana MD, 650 mg at 12/30/23 0755 albuterol HFA (PROVENTIL HFA,VENTOLIN HFA,PROAIR HFA) 90 mcg/actuation inhaler 2 puff, 2 puff, inhalation, Q4H PRN (RT), Becky Montana MD aspirin chewable tablet 81 mg, 81 mg, oral, Daily, Becky Montana MD, 81 mg at 12/31/23 0750 calcium carbonate (TUMS) chewable tablet 1,000 mg, 400 mg of elemental calcium, oral, TID PRN, Becky Montana MD cetirizine (ZyrTEC) tablet 10 mg, 10 mg, oral, Daily, Becky Montana MD, 10 mg at 12/31/23 075 donepeziL (ARICEPT) tablet 10 mg, 10 mg, oral, Nightly, Becky Montana MD, 10 mg at 12/30/232100 enoxaparin (LOVENOX) syringe 40 mg, 40 mg, subcutaneous, Daily-2100, Becky Rudd MD, 40 mg at 12/30/232101 fluticasone furoate-vilanteroL (BREO ELLIPTA) 100-25 mcg/dose inhaler 1 puff, 1 puff, inhalation, Daily (RT), Becky Montana MD, 1 puff at 12/31/23 0944 fluticasone propionate (FLONASE) 50 mcg/actuation nasal spray 1 spray, 1 spray, each nostril, BID, Becky Montana MD, 1 spray at 12/31/23 0751 gabapentin (NEURONTIN) capsule 300 mg, 300 mg, oral, TID, Becky Montana MD, 300 mg at 12/31/23 0750 guaiFENesin ER (MUCINEX) extended release tablet 600 mg, 600 mg, oral, BID, Jl Montana MD, 600 mg at 12/31/23 0750 hydrocortisone 2.5 % cream, , topical, BID, Becky Montana MD, Given at 12/31/23 0754 levothyroxine (SYNTHROID) tablet 150 mcg, 150 mcg, oral, Daily - 0600, Becky Rudd MD, 150 mcg at 12/31/23 0606 lidocaine (LIDODERM) 5 % patch 1 patch, 1 patch, transdermal, Q24H, Becky Rudd MD, 1 patch at 12/30/23 1154 ofloxacin (OCUFLOX) 0.3 % ophthalmic solution 1 drop, 1 drop, each eye, Daily PRN, Becky Montana MD ondansetron (ZOFRAN) tablet 4 mg, 4 mg, oral, TID PRN, Becky Montana MD pantoprazole DR (PROTONIX) extended release tablet 40 mg, 40 mg, oral, BID, Jl Montana MD, 40 mg at 12/31/23 0750 ramelteon (ROZEREM) tablet 8 mg, 8 mg, oral, Nightly PRN, Becky Montana MD, 8 mg at 12/30/232100 rosuvastatin (CRESTOR) tablet 40 mg, 40 mg, oral, Daily, Becky Montana MD, 40 mg at 12/31/23 0750 senna-docusate (PERICOLACE) 8.6-50 mg per tablet 1 tablet, 1 tablet, oral, BID PRN, Becky Montana MD, 1 tablet at 12/19/23 0837 simethicone (MYLICON) chewable tablet 80 mg, 80 mg, oral, TID PRN, Becky Rudd MD tamsulosin (FLOMAX) extended release capsule 0.4 mg, 0.4 mg, oral, Nightly, Jl Montana MD, 0.4 mg at 12/30/232100 tiZANidine (ZANAFLEX) tablet 2 mg, 2 mg, oral, TID PRN, Becky Montana MD, 2 mg at 12/27/232025 traMADoL (ULTRAM) tablet 50 mg, 50 mg, oral, Q6H PRN, Becky Montana MD, 50 mg at 12/30/23 1159 ASSESSMENT/PLAN: MEDICAL PLAN OF CARE: 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 Reviewed home medicine - on spironolactone 25mg and lasix 20mg 12/26: controlled 12/27: controlled 12/28: controlled 12/29: controlled 12/30:controlled HLD: continue rosuvastatin 40mg AAA: no current medications Hypothyroidism: continue levothyroxine 150mcg GERD: continue pantoprazole 40mg bid Alzheimer: continue donepezil 10mg qhs Depression: no current medications Asthma: continue breo ellipta 100-25 daily BPH: continue flomax 0.4mg qhs 12/23: reviewed home medications - on oxybutynin 15mg and gemtesa 75mg for overactive bladder - hold for now Neuropathy: continue gabapentin 300mg tid Pain: Start Tylenol 650mg q6h prn, oxycodone 5mg q4h prn 12/22: lidoderm patch, decrease frequency of oxycodone to q6h prn 12/23: reviewed home medications, dc oxycodone and start tramadol 50mg q6h pr: heat/ice prn to left elbow Bowels: Start miralax daily, pericolace bid prn, simethicone prn 12/16: dulcolax 10mg x1 12/29: dc miralax Nausea: Start Zofran prn, Tums prn Congestion: start mucinex 600mg bid 12/23: start home cetirizine 10mg 12/26: start flonase bid Knee pain: consult to orthopedics for injection per patient request 12/29 received injection yesterday Rash: hydrocortisone cream bid to right hand Diet: Reg/Thin HH 2G Na DVT ppx: restart lovenox Precautions: Fall Weightbearing status: full Code: Full Code Care discussed with Nursing Reviewed vital signs, intake, bowel, and bladder - as above REHAB PLAN OF CARE: Patient's expected intensity and duration of participation in the interdisciplinary rehabilitation program and disciplines that comprise this team: Therapies required to achieve goals:The patient will benefit from integrated coordination of care from the following interdisciplinary services: Medical Supervision, 24 hours Rehabilitation Nursing, Physical Therapy, Occupational Therapy, Case Management; Social Work; Therapeutic Recreation; SpeechTherapy; Flatwork Feeder Frequency and duration of therapies expect to be:Expected intensity and frequency of participation in the interdisciplinary rehab program is: 3 hours per day except Wednesday. Expected intensity and frequency of Physical Therapy (PT): 1.5 hours per day over 5-7 days for the duration of length of stay Expected intensity and frequency of Occupational Therapy (OT): 1.5 hours per day over 5-7 days per week for the duration of length of stay Expected intensity and frequency of Speech Therapy (NUMEROLOGIST): 1 hour per day per day over 5-7 days per week for the duration of length of stay FUNCTIONAL CHANGE: LE dressing : MODA DISCHARGE PLANNING: Expected Discharge Date: Saturday 01/06 with home health PT OT Equipment: TBD Family Training: SW to set up Education: Follow up Appointments: PCP 1-2 weeks Becky Montana MD Physical Medicine and Rehabilitation I can be reached from 7am-7pm through [email or web address] chat. Hospitalist forest fire prevention manager from 7pm-7am * Madie Oneill, DIRECTOR OF RECRUITING - 12/31/2023 11:08 AM CDT Physical Therapy PT PROGRESS NOTE Gunjan Gtz Jr. 78 y.o. 1945 Past Medical History: Diagnosis Date Acute gastric [...] delayed healing, subsequent encounter Clotting disorder (CMS/HCC) (HCC) Complex tear of medial meniscus of left knee as current injury Complex tear of medial meniscus of right knee as current injury Cramps of lower extremity Diverticulitis of colon Easy bruisability Fatigue Frequent urination Gastroesophageal reflux disease GERD Hypothyroidism Incontinence of urine Muscle weakness Osteoarthritis Osteoarthritis Peptic ulcer Peptic ulcer disease Seizures (HCC) 1997 last seizure in 1997 SOB (shortness of breath) on exertion Subchondral insufficiency fracture of condyle of left femur (CMS/HCC) (HCC) Vertigo Vision changes Visual disturbance hx of double vision, corrective lenses Past Surgical History: Procedure Laterality Date CATARACT EXTRACTION, BILATERAL Bilateral 2018 HERNIA REPAIR 1979 Hiatal Hernia repair KNEE ARTHROSCOPY Bilateral THYROIDECTOMY 12/27/2019 Patient Active Problem List Diagnosis Primary osteoarthritis of both knees Subchondral insufficiency fracture of condyle of left femur (CMS/HCC) (HCC) Closed fracture of left tibial plateau with delayed healing Closed fracture of right tibial plateau with delayed healing Closed nondisplaced osteochondral fracture of left patella with delayed healing Closed osteochondral fracture of patella, right, with delayed healing, subsequent encounter Complex tear of medial meniscus of right knee as current injury Complex tear of medial meniscus of left knee as current injury Goiter Breast pain, right Cataract of right eye Diplopia Esotropia Hypertropia of right eye Skin lesion of breast Edema Intermittent claudication (HCC) Iron deficiency anemia Peripheral vascular disease (HCC) Pain due to total right knee replacement (CMS/HCC) (HCC) Hamstring tendinitis of right thigh Quadriceps weakness Idiopathic peripheral neuropathy Abnormality of gait and mobility Hx of total knee replacement, right Neuropathy (CMS/HCC) 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 Biceps tendinitis of left upper extremity Tear of left glenoid labrum Coffee ground emesis Upper GI bleed Acquired hypothyroidism Acute blood loss anemia Lung nodule Nocturnal cough Hiatal hernia Infrarenal abdominal aortic aneurysm (AAA) without rupture (HCC) Acute CVA (cerebrovascular accident) (HCC) Moderate malnutrition (CMS/HCC) Primary osteoarthritis of left knee TIME IN: 1105 TIME OUT: 1150 SUBJECTIVE Did you order my wheelchair? What does it look like; do you have a picture of it? Patient is working to ensure all needed equipment is ready for him prior to upcoming D/C. MENTAL STATUS/ORIENTATION: Alert and oriented x4 PAIN: Pre-therapy pain level: none Pain location: L knee at session end Pain intervention: mobility performed to tolerance Post-therapy pain level/response to intervention: L knee, session end, 12/18 OBJECTIVE PRECAUTIONS: fall APPEARANCE/POSTURE: present in therapy gym, seated in W/C, chair alarm active MOBILITY DOCUMENTATION: Bed Mobility: sit to supine with CG assist. Patient reports bed at home is 30 and patient performsat this height. Supine to sit with near SBA / CG assist for safety. Patient is recalling and able to perform log rolling technique. Transfers: sit <> stand W/C to rasheed-aide with CG assist if weight is shifted forward and bodymechanics are correct. MIN assist needed x 2 trials this date. Pivot transfers with 3' distance between W/C and mat; W/C and recliner with rasheed-aide and MIN assist for knee stabilization. Ambulation: NT Stairs: tap-ups onto 3 block x 8 reps x 2, KATELIN. R UE support on rasheed-bar, L UE in sling. L knee begins to buckle post 3-4 reps. Wheelchair management & propulsion: 20' + 80' with good management of obstacles. TREATMENT: Patient performs supine heel slides, hip ABD and SAQ x 15 reps KATELIN v/c regarding holding SAQ at endrange especially on L LE. Appearance/Posture at end of treatment session: returned to room, seated in recliner, chair alarm active, call light in reach, lunch tray set up. EDUCATION: PATIENT/FAMILY EDUCATION: safety, bed mobility, supine HEP, patient able to teach back sequencing with transfers. Response to Education: demonstrated understanding and needs reinforcement ASSESSMENT Activity tolerance/response to PT: GOOD Patient is improving, likely near new baseline. Safety, weakness and coordination deficits. Barriers to learning: Physical Barriers to discharge: Pain, Limited family support, No caregiver support, Limited safety awareness, Limited insight into deficits, Decreased endurance, Decreased proprioception, Upper extremity weakness, Lower extremity weakness, and Stairs at home Patient continues progressing toward previously set goals which remain appropriate at this time. PLAN Patient to be seen bid 5x/week to address previously established deficits and goals. * Rosalia Marinelli, OT - 12/31/2023 10:05 AM CDT Occupational Therapy NOTE TYPE: OT TREATMENT ([facility] BEDSIDE SESSION) Patient's Name: Gunjan Gtz Jr. Age / Sex: 78 y.o. / male Room: [place] [id number] : 1945 Date: 12/31/23 Time In: 1005 Time Out: 1100 Patient Active Problem List Diagnosis Primary osteoarthritis of both knees Subchondral insufficiency fracture of condyle of left femur (CMS/[facility]) ([facility]) Closed fracture of left tibial plateau with delayed healing Closed fracture of right tibial plateau with delayed healing Closed nondisplaced osteochondral fracture of left patella with delayed healing Closed osteochondral fracture of patella, right, with delayed healing, subsequent encounter Complex tear of medial meniscus of right knee as current injury Complex tear of medial meniscus of left knee as current injury Goiter Breast pain, right Cataract of right eye Diplopia Esotropia Hypertropia of right eye Skin lesion of breast Edema Intermittent claudication ([facility]) Iron deficiency anemia Peripheral vascular disease ([facility]) Pain due to total right knee replacement (CMS/HCC) ([facility]) Hamstring tendinitis of right thigh Quadriceps weakness Idiopathic peripheral neuropathy Abnormality of gait and mobility Hx of total knee replacement, right Neuropathy (CMS/[facility]) 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 Biceps tendinitis of left upper extremity Tear of left glenoid labrum Coffee ground emesis Upper GI bleed Acquired hypothyroidism Acute blood loss anemia Lung nodule Nocturnal cough Hiatal hernia Infrarenal abdominal aortic aneurysm (AAA) without rupture ([facility]) Acute CVA (cerebrovascular accident) ([facility]) Moderate malnutrition (CMS/[facility]) Primary osteoarthritis of left knee Past Medical History: Diagnosis Date Acute gastric ulcer without hemorrhage or perforation Ulcer, gastric, acute - (Added by TW Conv) Alzheimer's dementia ([facility]) Asthma Back pain Cataract Closed fracture of left tibial plateau with delayed healing Closed fracture of right tibial plateau with delayed healing Closed nondisplaced osteochondral fracture of left patella with delayed healing Closed osteochondral fracture of patella, right, with delayed healing, subsequent encounter Clotting disorder (CMS/HCC) ([facility]) Complex tear of medial meniscus of left knee as current injury Complex tear of medial meniscus of right knee as current injury Cramps of lower extremity Diverticulitis of colon Easy bruisability Fatigue Frequent urination Gastroesophageal reflux disease GERD Hypothyroidism Incontinence of urine Muscle weakness Osteoarthritis Osteoarthritis Peptic ulcer Peptic ulcer disease Seizures ([facility]) 1997 last seizure in 1997 SOB (shortness of breath) on exertion Subchondral insufficiency fracture of condyle of left femur (CMS/[facility]) ([facility]) Vertigo Vision changes Visual disturbance hx of double vision, corrective lenses Past Surgical History: Procedure Laterality Date CATARACT EXTRACTION, BILATERAL Bilateral 2018 HERNIA REPAIR 1979 Hiatal Hernia repair KNEE ARTHROSCOPY Bilateral THYROIDECTOMY 12/27/2019 Precautions (Including Weight-Bearing): Fall risk and Bed / chair alarm SUBJECTIVE: I have a list to go over Therapy Pain: Pre-therapy pain level: 0 / 10 Pain location: No pain - Location N/A Pain intervention(s): No pain - Intervention N/A Post-therapy pain level: 0 / 10 Pain scale used: 0-10 SCALE OBJECTIVE: APPEARANCE: Presentation upon OT arrival: Patient Sitting in bedside recliner Presentation upon OT departure: PATIENT Sitting in manual wheelchair with staff assistance Bed / chair alarm in place and activated upon OT departure: Yes Call light within arms reach of patient at end of session: No - due to patient taken to physical therapy gym Completed patient handoff and notified Physical Therapist / Physical Therapist Human Resources Clerk, name: Marcia, of patient's location and functional status upon completion of session. COGNITIVE / PERCEPTUAL: Alert and oriented to conversation SELF CARE: Shower / Bathe Self Type of bathing: spongebathing Location of shower / bathe self: Sitting in manual wheelchair and Standing at sink Tasks completed: right arm and buttocks Components that required assistance (if applicable): MAX ASSIST RIGHT ARM and MOD ASSIST BUTTOCKS Overall assist level: Partial / moderate assistance: Less than half (1% - 49%) Adaptive equipment (if applicable): no assistive device Additional documentation: MOD assist overall. Patient required max assist to wash RUE. Mod assist for balance and thoroughness when washing buttock standing at sink. Oral Hygiene Location of oral hygiene: Sitting in manual wheelchair Overall assist level: Supervision assistance / verbal cue(s) Additional documentation: Patient placed towel on lap to stabilize toothbrush when applying toothpaste Other Grooming Tasks Location of other grooming tasks: Sitting in manual wheelchair Tasks completed: COMBING HAIR and APPLYING DEODORANT Overall assist level: Supervision assistance / verbal cue(s) Additional documentation: N/A UE Dressing Location of UE dressing: Sitting in manual wheelchair Tasks completed: Pullover shirt and Undershirt Overall assist level: Partial / moderate assistance: Less than half (1% - 49%) Additional documentation: MIN assist to fully pull shirt down in back LE Dressing (Underwear / Pants) Location of LE dressing (Underwear / Pants): Sitting in manual wheelchair and Standing at sink Tasks completed: Elastic waist pants and Incontinence briefs as underwear Overall assist level: Partial / moderate assistance: Less than half (1% - 49%) Additional documentation: MOD assist overall. Mod assist to thread brief/pants over LLE. Min assistfor standing balance at sink while patient pulled brief/pants over hips using RUE Putting On / Taking Off Footwear Location of putting on / taking off footwear: Sitting in manual wheelchair Tasks completed: Sock(s) and Slip-on shoe(s) Overall assist level: Substantial / maximal assistance: More than half (50% - 99%) Additional documentation: N/A MOBILITY: Transfers: Mod assist assist for stand pivot transfer from recliner to w/c using rasheed aide; Patient reports knee giving out at end of transfer and requires mod assist from OT for safe descent Min assist for sit <> stand at sink HEARING / SPEECH / VISION: Expression of ideas and wants Overall assist level: WITHOUT DIFFICULTY Understanding verbal and non-verbal content Overall assist level: UNDERSTANDS Caregiver present (yes / no): No Education & training provided: Role of OT, OT plan of care, ADL training, Functional transfer training, Balance training, and Safety education ASSESSMENT: Activity tolerance / response to OT: GOOD PARTICIPATION, GOOD MOTIVATION, and RECEPTIVE TO EDUCATION / TRAINING Progress towards goals: Please refer to Care Plan from this date for progress towards individual goals. PLAN: Therapy Plan: Please refer to most recent Inpatient Rehabilitation Team Conference note for discharge plan, including location, recommended level of supervision, and arrangements. Frequency of therapy: BID SESSIONS 5 DAYS / WEEK TO ADDRESS PREVIOUSLY ESTABLISHED DEFICITS AND GOALS Rosalia Marinelli OT 12/31/23 * Paresh Prieto, NUMEROLOGIST - 12/31/2023 10:01 AM CDT SPEECH LANGUAGE PATHOLOGY PROGRESS NOTE Patient's Name: Gunjan Gtz Jr. : 1945 Age: 78 y.o. Time In: 9:33 Time Out: 10:05 Patient Active Problem List Diagnosis Primary osteoarthritis of both knees Subchondral insufficiency fracture of condyle of left femur (CMS/HCC) ([facility]) Closed fracture of left tibial plateau with delayed healing Closed fracture of right tibial plateau with delayed healing Closed nondisplaced osteochondral fracture of left patella with delayed healing Closed osteochondral fracture of patella, right, with delayed healing, subsequent encounter Complex tear of medial meniscus of right knee as current injury Complex tear of medial meniscus of left knee as current injury Goiter Breast pain, right Cataract of right eye Diplopia Esotropia Hypertropia of right eye Skin lesion of breast Edema Intermittent claudication (HCC) Iron deficiency anemia Peripheral vascular disease (HCC) Pain due to total right knee replacement (CMS/HCC) ([facility]) Hamstring tendinitis of right thigh Quadriceps weakness Idiopathic peripheral neuropathy Abnormality of gait and mobility Hx of total knee replacement, right Neuropathy (CMS/HCC) 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 Biceps tendinitis of left upper extremity Tear of left glenoid labrum Coffee ground emesis Upper GI bleed Acquired hypothyroidism Acute blood loss anemia Lung nodule Nocturnal cough Hiatal hernia Infrarenal abdominal aortic aneurysm (AAA) without rupture ([facility]) Acute CVA (cerebrovascular accident) ([facility]) Moderate malnutrition (CMS/HCC) Primary osteoarthritis of left knee Past Medical History: Diagnosis Date Acute gastric ulcer without hemorrhage or perforation Ulcer, gastric, acute - (Added by TW Conv) Alzheimer's dementia ([facility]) Asthma Back pain Cataract Closed fracture of left tibial plateau with delayed healing Closed fracture of right tibial plateau with delayed healing Closed nondisplaced osteochondral fracture of left patella with delayed healing Closed osteochondral fracture of patella, right, with delayed healing, subsequent encounter Clotting disorder (CMS/HCC) ([facility]) Complex tear of medial meniscus of left knee as current injury Complex tear of medial meniscus of right knee as current injury Cramps of lower extremity Diverticulitis of colon Easy bruisability Fatigue Frequent urination Gastroesophageal reflux disease GERD Hypothyroidism Incontinence of urine Muscle weakness Osteoarthritis Osteoarthritis Peptic ulcer Peptic ulcer disease Seizures ([facility]) 1997 last seizure in 1997 SOB (shortness of breath) on exertion Subchondral insufficiency fracture of condyle of left femur (CMS/HCC) ([facility]) Vertigo Vision changes Visual disturbance hx of double vision, corrective lenses Past Surgical History: Procedure Laterality Date CATARACT EXTRACTION, BILATERAL Bilateral 2018 HERNIA REPAIR 1979 Hiatal Hernia repair KNEE ARTHROSCOPY Bilateral THYROIDECTOMY 12/27/2019 SUBJECTIVE MENTAL STATUS: Awake and cooperative, resting in recliner. States, I'm making a list of all the things I need at home. PAIN: Pre Therapy Pain Level: 0/10 Pain Location: N/A Pain Intervention: N/A Post Therapy Pain Level/Response to Intervention: 0/10 OBJECTIVE PRECAUTIONS: Fall precautions SWALLOWING: Patient continues to tolerate regular consistency diet/thin liquids. Decreased awareness of excess secretions resulting in anterior spillage. COGNITION: Decreased insight and safety awareness. COMMUNICATION: Mild dysarthric speech. TREATMENT ACTIVITIES: Conversational speech task with 90% intelligibility. One episode of decreased intelligibility due to rapid speech rate. Able to provide appropriate solutions to discharge situations with 70% accuracy. Recall functional information regarding discharge with 80% accuracy. EDUCATION: PATIENT/FAMILY EDUCATION: Reviewed all discharge recommendations with patient Response to Education: Needs reinforcement ASSESSMENT Activity Tolerance/Response to S.T.: Tolerated speech therapy session with no complaints Barriers to learning: Vision, Cognition Current status: Patient continues to demonstrate decreased insight into deficits and safety awareness regarding home safety. Progress toward goals: Patient continues to progress toward previously set goals which remain appropriate at this time. PLAN Multi-Disciplinary Problems (from Speech Therapy) Active Problems Problem: [place]OLOG[place] [facility] [place]: 12/16/23 Goal Start Date Expected End Date End Date [facility] [place]/16/23 01/06/24 -- Goal Details: Patient to perform short term memory tasks using compensatory strategies with 80% accuracy. Goal Start Date Expected End Date End Date [facility] [place] [facility] 12/16/23 01/06/24 -- Goal Details: Patient to perform functional problem solving/reasoning tasks with 80% accuracy. Goal Start Date Expected End Date End Date [facility] [place] 12/16/23 01/06/24 -- Goal Details: Patient to attend to left visual field 80% of the time given 2-3 verbal prompts. Goal Start Date Expected End Date End Date [facility] [place] 12/16/23 01/06/24 -- Goal Details: Patient's speech to be 90% intelligible during conversational tasks utilizing compensatory strategies. Frequency of Treatment: BID, 5xs weekly Recommendations: Recommend home with 24 hour supervision at discharge. If this is the last note, consider this the discharge summary. * Paresh Prieto SLP - 12/30/2023 2:47 PM CDT SPEECH LANGUAGE PATHOLOGY PROGRESS NOTE Patient's Name: Gunjan Gtz JrMason : 1945 Age: 78 y.o. Time In: 13:02 Time Out: 13:30 Patient Active Problem List Diagnosis Primary osteoarthritis of both knees Subchondral insufficiency fracture of condyle of left femur (CMS/HCC) (HCC) Closed fracture of left tibial plateau with delayed healing Closed fracture of right tibial plateau with delayed healing Closed nondisplaced osteochondral fracture of left patella with delayed healing Closed osteochondral fracture of patella, right, with delayed healing, subsequent encounter Complex tear of medial meniscus of right knee as current injury Complex tear of medial meniscus of left knee as current injury Goiter Breast pain, right Cataract of right eye Diplopia Esotropia Hypertropia of right eye Skin lesion of breast Edema Intermittent claudication (HCC) Iron deficiency anemia Peripheral vascular disease (HCC) Pain due to total right knee replacement (CMS/HCC) (HCC) Hamstring tendinitis of right thigh Quadriceps weakness Idiopathic peripheral neuropathy Abnormality of gait and mobility Hx of total knee replacement, right Neuropathy ([facility]) 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 Biceps tendinitis of left upper extremity Tear of left glenoid labrum Coffee ground emesis Upper GI bleed Acquired hypothyroidism Acute blood loss anemia Lung nodule Nocturnal cough Hiatal hernia Infrarenal abdominal aortic aneurysm (AAA) without rupture ([facility]) Acute CVA (cerebrovascular accident) ([facility]) Moderate malnutrition (CMS/[facility]) Primary osteoarthritis of left knee Past Medical History: Diagnosis Date Acute gastric ulcer without hemorrhage or perforation Ulcer, gastric, acute - (Added by TW Conv) Alzheimer's dementia ([facility]) Asthma Back pain Cataract Closed fracture of left tibial plateau with delayed healing Closed fracture of right tibial plateau with delayed healing Closed nondisplaced osteochondral fracture of left patella with delayed healing Closed osteochondral fracture of patella, right, with delayed healing, subsequent encounter Clotting disorder (CMS/[facility]) ([facility]) Complex tear of medial meniscus of left knee as current injury Complex tear of medial meniscus of right knee as current injury Cramps of lower extremity Diverticulitis of colon Easy bruisability Fatigue Frequent urination Gastroesophageal reflux disease GERD Hypothyroidism Incontinence of urine Muscle weakness Osteoarthritis Osteoarthritis Peptic ulcer Peptic ulcer disease Seizures ([facility]) 1997 last seizure in 1997 SOB (shortness of breath) on exertion Subchondral insufficiency fracture of condyle of left femur ([facility]) ([facility]) Vertigo Vision changes Visual disturbance hx of double vision, corrective lenses Past Surgical History: Procedure Laterality Date CATARACT EXTRACTION, BILATERAL Bilateral 2018 HERNIA REPAIR 1980 Hiatal Hernia repair KNEE ARTHROSCOPY Bilateral THYROIDECTOMY 12/27/2019 SUBJECTIVE MENTAL STATUS: Awake and cooperative. Visitors in room. PAIN: Pre Therapy Pain Level: 0/10 Pain Location: N/A Pain Intervention: N/A Post Therapy Pain Level/Response to Intervention: 0/10 OBJECTIVE PRECAUTIONS: Fall precautions SWALLOWING: Swallow assessed by NUMEROLOGIST. Regular consistency diet/thin liquids recommended. COGNITION: Decreased memory, thought organization and insight COMMUNICATION: Mild dysarthric speech. TREATMENT ACTIVITIES: Patient able to perform conversational tasks with 80% intelligibility. Safety awareness task with 80% accuracy. Recall safety precautions with 100% accuracy EDUCATION: PATIENT/FAMILY EDUCATION: Discussed equipment required at discharge Response to Education: Understanding verbalized ASSESSMENT Activity Tolerance/Response to S.T.: Tolerated speech therapy session with no complaints Barriers to learning: Vision, Cognition Current status: Mild to moderate cognitive deficits in memory and insight. Progress toward goals: Patient continues to progress toward previously set goals which remain appropriate at this time. PLAN Multi-Disciplinary Problems (from Speech Therapy) Active Problems Problem: NUMEROLOGIST [facility] [place] Date: 12/16/23 Goal Start Date Expected End Date End Date [facility] [place] 12/16/23 01/06/24 -- Goal Details: Patient to perform short term memory tasks using compensatory strategies with 80% accuracy. Goal Start Date Expected End Date End Date [facility] [place] [facility] 12/16/23 01/06/24 -- Goal Details: Patient to perform functional problem solving/reasoning tasks with 80% accuracy. Goal Start Date Expected End Date End Date [facility] [place] 12/16/23 01/06/24 -- Goal Details: Patient to attend to left visual field 80% of the time given 2-3 verbal prompts. Goal Start Date Expected End Date End Date [facility] [place] [facility] 12/16/23 01/06/24 -- Goal Details: Patient's speech to be 90% intelligible during conversational tasks utilizing compensatory strategies. Frequency of Treatment: BID, 5xs weekly Recommendations: Recommend home with 24 hour supervision at discharge. If this is the last note, consider this the discharge summary. * Kay Aviles, DIRECTOR OF RECRUITING - 12/30/2023 2:27 PM CDT Physical Therapy PT PROGRESS NOTE Gunjan Gtz Jr. 78 y.o. 1945 Past Medical History: Diagnosis Date Acute gastric [...] delayed healing, subsequent encounter Clotting disorder (CMS/HCC) (HCC) Complex tear of medial meniscus of left knee as current injury Complex tear of medial meniscus of right knee as current injury Cramps of lower extremity Diverticulitis of colon Easy bruisability Fatigue Frequent urination Gastroesophageal reflux disease GERD Hypothyroidism Incontinence of urine Muscle weakness Osteoarthritis Osteoarthritis Peptic ulcer Peptic ulcer disease Seizures (HCC) 1997 last seizure in 1997 SOB (shortness of breath) on exertion Subchondral insufficiency fracture of condyle of left femur (CMS/HCC) ([facility]) Vertigo Vision changes Visual disturbance hx of double vision, corrective lenses Past Surgical History: Procedure Laterality Date CATARACT EXTRACTION, BILATERAL Bilateral 2018 HERNIA REPAIR 1980 Hiatal Hernia repair KNEE ARTHROSCOPY Bilateral THYROIDECTOMY 12/27/2019 Patient Active Problem List Diagnosis Primary osteoarthritis of both knees Subchondral insufficiency fracture of condyle of left femur (CMS/HCC) ([facility]) Closed fracture of left tibial plateau with delayed healing Closed fracture of right tibial plateau with delayed healing Closed nondisplaced osteochondral fracture of left patella with delayed healing Closed osteochondral fracture of patella, right, with delayed healing, subsequent encounter Complex tear of medial meniscus of right knee as current injury Complex tear of medial meniscus of left knee as current injury Goiter Breast pain, right Cataract of right eye Diplopia Esotropia Hypertropia of right eye Skin lesion of breast Edema Intermittent claudication ([facility]) Iron deficiency anemia Peripheral vascular disease ([facility]) Pain due to total right knee replacement (CMS/HCC) ([facility]) Hamstring tendinitis of right thigh Quadriceps weakness Idiopathic peripheral neuropathy Abnormality of gait and mobility Hx of total knee replacement, right Neuropathy (CMS/HCC) 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 Biceps tendinitis of left upper extremity Tear of left glenoid labrum Coffee ground emesis Upper GI bleed Acquired hypothyroidism Acute blood loss anemia Lung nodule Nocturnal cough Hiatal hernia Infrarenal abdominal aortic aneurysm (AAA) without rupture ([facility]) Acute CVA (cerebrovascular accident) ([facility]) Moderate malnutrition (CMS/HCC) Primary osteoarthritis of left knee TIME IN: 14:15 TIME OUT: 15:04 SUBJECTIVE Patient stated he was o.k. MENTAL STATUS/ORIENTATION: Alert and oriented x4 PAIN: Pre-therapy pain level: 0/10 Pain location: n/a Pain intervention: none needed at this time Post-therapy pain level/response to intervention: 0/10 OBJECTIVE PRECAUTIONS: fall risk APPEARANCE/POSTURE: patient sitting in wheelchair, alarm in place, wearing glasses, and agreeable to therapy. MOBILITY DOCUMENTATION: Bed Mobility: sit to supine laying down to left side with min assist for left leg. Supine to sit from left side with min assist for trunk support. Roll right and left with min assist. Transfers: sit to and from stand with CG assist with cues for hand placement and safety. Transfers wheelchair to recliner chair stand pivot transfer with min assist. Ambulation: rasheed-aid 34'x2 CG/min assist with decreased gertrudis, downward gaze, decreased left heelstrike and push off, decreased left foot clearance with fatigue. Stairs: N/A Wheelchair management & propulsion: N/A TREATMENT: Supine LE ex's with 3# weight on right, supervision assist except left SLR's min assist. Patient performed ankle pumps, circles, quad sets, glut sets, heel slides, hip abduction, SAQ's, and SLR's. Bridging x15 reps and min assist to hold feet in place. Side lying glut met x10 reps KATELIN min assist to hold position. Side lying left hip abduction x10 reps with mod assist. Appearance/Posture at end of treatment session: Patient sitting in recliner chair with alarm on andin place and call button in reach. EDUCATION: PATIENT/FAMILY EDUCATION: patient educated on exercises, balance, and safety Response to Education: needs reinforcement ASSESSMENT Activity tolerance/response to PT: patient demonstrates increased fatigue with decreased left foot clearance with fatigue. Barriers to learning: Physical Barriers to discharge: Limited safety awareness, Decreased endurance, Upper extremity weakness, andLower extremity weakness Patient continues progressing toward previously set goals which remain appropriate at this time. PLAN Patient to be seen bid 5x/week to address previously established deficits and goals. * Rosalia Marinelli, OT - 12/30/2023 1:32 PM CDT Occupational Therapy NOTE TYPE: OT TREATMENT ([facility] DEPARTMENT SESSION) PATIENT'S NAME: Gunjan Gtz Jr. AGE / SEX: 78 y.o. / male [id number] 1945 DATE: 12/30/23 TIME IN: 1332 TIME OUT: 1413 Patient Active Problem List Diagnosis Primary osteoarthritis of both knees Subchondral insufficiency fracture of condyle of left femur (CMS/HCC) ([facility]) Closed fracture of left tibial plateau with delayed healing Closed fracture of right tibial plateau with delayed healing Closed nondisplaced osteochondral fracture of left patella with delayed healing Closed osteochondral fracture of patella, right, with delayed healing, subsequent encounter Complex tear of medial meniscus of right knee as current injury Complex tear of medial meniscus of left knee as current injury Goiter Breast pain, right Cataract of right eye Diplopia Esotropia Hypertropia of right eye Skin lesion of breast Edema Intermittent claudication ([facility]) Iron deficiency anemia Peripheral vascular disease ([facility]) Pain due to total right knee replacement (CMS/HCC) ([facility]) Hamstring tendinitis of right thigh Quadriceps weakness Idiopathic peripheral neuropathy Abnormality of gait and mobility Hx of total knee replacement, right Neuropathy (CMS/HCC) 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 Biceps tendinitis of left upper extremity Tear of left glenoid labrum Coffee ground emesis Upper GI bleed Acquired hypothyroidism Acute blood loss anemia Lung nodule Nocturnal cough Hiatal hernia Infrarenal abdominal aortic aneurysm (AAA) without rupture ([facility]) Acute CVA (cerebrovascular accident) ([facility]) Moderate malnutrition (CMS/[facility]) Primary osteoarthritis of left knee Past Medical History: Diagnosis Date Acute gastric ulcer without hemorrhage or perforation Ulcer, gastric, acute - (Added by TW Conv) Alzheimer's dementia ([facility]) Asthma Back pain Cataract Closed fracture of left tibial plateau with delayed healing Closed fracture of right tibial plateau with delayed healing Closed nondisplaced osteochondral fracture of left patella with delayed healing Closed osteochondral fracture of patella, right, with delayed healing, subsequent encounter Clotting disorder ([facility]) ([facility]) Complex tear of medial meniscus of left knee as current injury Complex tear of medial meniscus of right knee as current injury Cramps of lower extremity Diverticulitis of colon Easy bruisability Fatigue Frequent urination Gastroesophageal reflux disease GERD Hypothyroidism Incontinence of urine Muscle weakness Osteoarthritis Osteoarthritis Peptic ulcer Peptic ulcer disease Seizures ([facility]) 1997 last seizure in 1997 SOB (shortness of breath) on exertion Subchondral insufficiency fracture of condyle of left femur ([facility]/HCC) ([facility]) Vertigo Vision changes Visual disturbance hx of double vision, corrective lenses Past Surgical History: Procedure Laterality Date CATARACT EXTRACTION, BILATERAL Bilateral 2018 HERNIA REPAIR 1979 Hiatal Hernia repair KNEE ARTHROSCOPY Bilateral THYROIDECTOMY 12/27/2019 PRECAUTIONS (INCLUDING WEIGHT-BEARING): Fall risk and Bed / chair alarm SUBJECTIVE: Patient agreeable THERAPY PAIN: PRE-THERAPY PAIN LEVEL: 0 / 10 PAIN LOCATION: No pain - Location N/A PAIN INTERVENTION(S): No pain - Intervention N/A POST-THERAPY PAIN LEVEL: 0 / 10 PAIN SCALE USED: 0-10 SCALE OBJECTIVE: APPEARANCE: PRESENTATION UPON OT ARRIVAL: PATIENT Sitting in bedside recliner PRESENTATION UPON OT DEPARTURE: PATIENT Sitting in manual wheelchair with staff assistance BED / CHAIR ALARM IN PLACE AND ACTIVATED UPON OT DEPARTURE: Yes CALL LIGHT WITHIN ARMS REACH OF PATIENT AT END OF SESSION: No - due to patient taken to physical therapy gym COMPLETED PATIENT HANDOFF AND NOTIFIED Physical Therapist / Physical Therapist Human Resources Clerk, NAME: Shannan, OF PATIENT'S LOCATION AND FUNCTIONAL STATUS UPON COMPLETION OF SESSION COGNITIVE / PERCEPTUAL: Alert and oriented to conversation MOBILITY: TRANSFERS: Min assist for stand pivot recliner to w/c using rasheed aide CGA progressing to min assist as patient fatigues for sit <> stand at raised table LIVING SKILLS: OT issued patient packet on various DME and adaptive equipment recommendations. OT educated patienton reasoning for use of DME in bathroom and adaptive equipment for dressing. Patient verbalizes understanding and states he will share recommendations with . ADDITIONAL ACTIVITIES: Weightbearing (OVERALL ASSIST LEVEL): Min assist LOCATION: standing at raised table ACTIVITY DESCRIPTION: Patient completed LUE weightbearing while standing at raised table with min assist for standing balance. Patient put weight through LUE while OT stabilized elbow and wrist. Patient with good tolerance to activity. ADDITIONAL ACTIVITIES: Standing balance (OVERALL ASSIST LEVEL): CGA- min assist LOCATION: standing at raised table ACTIVITY DESCRIPTION: To increase standing balance for daily occupations patient stood and participated in pegboard activity. They stood with CGA for balance and min assist to keep LUE up on table. They were able to participate in the activity for 2-3 minutes x 4 sets while maintaining fair+ standing balance. They demonstrated no loss of balance and fair safety awareness requiring 3 seated rest breaks. They requires min verbal or tactile cues for initiation and sequencing of task. CAREGIVER PRESENT (YES / NO): No EDUCATION & TRAINING PROVIDED: Role of OT, OT plan of care, Functional transfer training, Balance training, and Safety education ASSESSMENT: ACTIVITY TOLERANCE / RESPONSE TO OT: GOOD PARTICIPATION, GOOD MOTIVATION, and RECEPTIVE TO EDUCATION / TRAINING PROGRESS TOWARDS GOALS: PLEASE REFER TO CARE PLAN FROM THIS DATE FOR PROGRESS TOWARDS INDIVIDUAL GOALS PLAN: PLEASE REFER TO MOST RECENT INPATIENT REHABILITATION TEAM CONFERENCE NOTE FOR DISCHARGE PLAN, INCLUDING LOCATION, RECOMMENDED LEVEL OF SUPERVISION AND ARRANGEMENTS. FREQUENCY OF THERAPY: BID SESSIONS 5 DAYS / WEEK TO ADDRESS PREVIOUSLY ESTABLISHED DEFICITS AND GOALS Rosalia Marinelli OT 12/30/23 * Kay Aviles, DIRECTOR OF RECRUITING - 12/30/2023 11:59 AM CDT Physical Therapy PT PROGRESS NOTE Gunjan Gtz Jr. 78 y.o. 1945 Past Medical History: Diagnosis Date Acute gastric ulcer without hemorrhage or perforation Ulcer, gastric, acute - (Added by TW Conv) Alzheimer's dementia ([facility]) Asthma Back pain Cataract Closed fracture of left tibial plateau with delayed healing Closed fracture of right tibial plateau with delayed healing Closed nondisplaced osteochondral fracture of left patella with delayed healing Closed osteochondral fracture of patella, right, with delayed healing, subsequent encounter Clotting disorder (CMS/HCC) ([facility]) Complex tear of medial meniscus of left knee as current injury Complex tear of medial meniscus of right knee as current injury Cramps of lower extremity Diverticulitis of colon Easy bruisability Fatigue Frequent urination Gastroesophageal reflux disease GERD Hypothyroidism Incontinence of urine Muscle weakness Osteoarthritis Osteoarthritis Peptic ulcer Peptic ulcer disease Seizures ([facility]) 1997 last seizure in 1997 SOB (shortness of breath) on exertion Subchondral insufficiency fracture of condyle of left femur (CMS/HCC) ([facility]) Vertigo Vision changes Visual disturbance hx of double vision, corrective lenses Past Surgical History: Procedure Laterality Date CATARACT EXTRACTION, BILATERAL Bilateral 2018 HERNIA REPAIR 1979 Hiatal Hernia repair KNEE ARTHROSCOPY Bilateral THYROIDECTOMY 12/27/2019 Patient Active Problem List Diagnosis Primary osteoarthritis of both knees Subchondral insufficiency fracture of condyle of left femur (CMS/HCC) ([facility]) Closed fracture of left tibial plateau with delayed healing Closed fracture of right tibial plateau with delayed healing Closed nondisplaced osteochondral fracture of left patella with delayed healing Closed osteochondral fracture of patella, right, with delayed healing, subsequent encounter Complex tear of medial meniscus of right knee as current injury Complex tear of medial meniscus of left knee as current injury Goiter Breast pain, right Cataract of right eye Diplopia Esotropia Hypertropia of right eye Skin lesion of breast Edema Intermittent claudication ([facility]) Iron deficiency anemia Peripheral vascular disease ([facility]) Pain due to total right knee replacement (CMS/HCC) ([facility]) Hamstring tendinitis of right thigh Quadriceps weakness Idiopathic peripheral neuropathy Abnormality of gait and mobility Hx of total knee replacement, right Neuropathy (CMS/HCC) 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 Biceps tendinitis of left upper extremity Tear of left glenoid labrum Coffee ground emesis Upper GI bleed Acquired hypothyroidism Acute blood loss anemia Lung nodule Nocturnal cough Hiatal hernia Infrarenal abdominal aortic aneurysm (AAA) without rupture (HCC) Acute CVA (cerebrovascular accident) (HCC) Moderate malnutrition (CMS/HCC) Primary osteoarthritis of left knee TIME IN: 11:00 TIME OUT: 11:48 SUBJECTIVE Patient stated he was o.k. MENTAL STATUS/ORIENTATION: Alert and oriented x4 PAIN: Pre-therapy pain level: 10 Pain location: left knee Pain intervention: per patient, pain medicine already given Post-therapy pain level/response to intervention: 02/17 OBJECTIVE PRECAUTIONS: fall risk, APPEARANCE/POSTURE: patient sitting in wheelchair, alarm in place, agreeable to therapy. MOBILITY DOCUMENTATION: Bed Mobility: n/a Transfers: sit to stand with CG/Min assist with cues for hand placement and safety. Stand to sit with CG assist.with improved controlled descent. Transfers wheelchair to recliner chair stand pivot transfer and CG/Min assist. Ambulation: LBQC 23'x1 with min/mod assist and wheelchair follow. Patient with decreased gertrudis, left knee instability, decreased left foot clearance, decreased left heel strike and push off, narrowBOS Stairs: one step attempted with LBQC however had to switch to handrail due to unable to lift up through right LE. Mod assist and 1 and CG/Min assist of 1 for this attempt. One step performed second time with rasheed-aid and min assist of 1 and CG assist of 1. Patient with improved balance and ability to lift up onto step. Wheelchair management & propulsion: using right UE and KATELIN LE only 150'x1 and 50'x1 with increased amount of time and frequent rest breaks to complete. Appearance/Posture at end of treatment session: patient sitting in recliner chair, alarm in place, call button in reach. EDUCATION: PATIENT/FAMILY EDUCATION: patient educated on gait, balance, and one step. Response to Education: needs reinforcement ASSESSMENT Activity tolerance/response to PT: patient completes all activities with rest breaks and increased times Barriers to learning: Physical Barriers to discharge: Limited safety awareness, Limited insight into deficits, Decreased endurance, Upper extremity weakness, and Lower extremity weakness Patient continues progressing toward previously set goals which remain appropriate at this time. PLAN Patient to be seen bid 5x/week to address previously established deficits and goals. * Becky Montana MD - 12/30/2023 11:02 AM CDT INPATIENT REHABILITATION DAILY PROGRESS NOTE CHIEF COMPLAINT: right posterior limb internal capsule infarct SUBJECTIVE: Knee feels better. No concerns today. Family asking for 1 day earlier discharge due to other familyarrangements. OBJECTIVE: VITALS: Vitals: 12/29/23 0649 12/29/23 0950 12/29/23 1900 12/30/23 0712 BP: 139/78 133/76 123/64 BP Location: Right arm Right arm Patient Position: Sitting Sitting Pulse: 74 70 66 Resp: 18 Temp: 36.8 ??C (98.2 ??F) 36.4 ??C (97.5 ??F) 36.2 ??C (97.2 ??F) TempSrc: Oral Temporal Oral SpO2: 91% 95% 99% 96% Weight: Height: PHYSICAL EXAM: General: no acute distress, in chair HEENT: normocephalic, trachea midline Heart: rrr Lungs: ctab GI: soft, nontender Neuro: awake, alert Skin: red raised papules right hand improved LABS/RADIOLOGY/DIAGNOSTIC REVIEW Recent Labs Lab Units 12/27/23 0438 WBC K/cumm 6.7 HEMOGLOBIN g/dL 12.8* HEMATOCRIT % 39.3 PLATELETS K/cumm 235 Recent Labs Lab Units 12/27/23 0438 SODIUM mmol/L 141 POTASSIUM PLASMA mmol/L 4.2 CHLORIDE mmol/L 107 CO2 mmol/L 26 ANIONGAP mmol/L 8 GLUCOSE mg/dL 107 BUN SERUM mg/dL 18 CREATININE mg/dL 1.30 CALCIUM mg/dL 8.9 ALBUMIN g/dL 3.2* ALK PHOS Units/L 115 ALT Units/L 22 AST Units/L 23 BILIRUBIN TOTAL mg/dL 0.5 Recent Labs Lab Units 12/27/23 0438 GLUCOSE mg/dL 107 OT Functional Mobility: 12/20 Functional transfers: MOD-MAX OT Self Care: 12/20 Bathing: MAX Grooming: MAX UB dress:MOD LB dress: MAX Footwear: MAX Toileting:TOTAL NUMEROLOGIST Cognition: Mild/moderate cognitive deficits in short-term memory, insight, and problem solving/reasoning. Left visual inattention. NUMEROLOGIST Communication: Mild dysarthria NUMEROLOGIST Swallowing: Tolerating regular diet with thin liquids PT Functional Mobility: Bed Mobility: sit to supine with min assist for left LE. Supine to sit withcontact guard assist. Transfers: sit to stand with contact guard/min assist, stand to sit with contact guard assist with max verbal cues to complete turn before reaching for chair. Transfers wheelchair to recliner chair stand pivot transfer by holding onto chair with min assist. Ambulation: rasheed-aid 10'x1, 15'x1 with min assist. Patient with decreased gertrudis, step to gait pattern, decreased leftheel strike and push off, narrow SHANA, downward gaze, slight flexed posture at hips, decreased left knee stability with fatigue. Stairs: one step performed 2x: ascending with one handrail and mod assist the first time and min assist the second time. Descending both times with min assist of 1 and CG assist of 1 with decreased left knee stability noted second time. Wheelchair management & propulsion: using right UE and LE 60'x1 and supervision assist with increased time. No results found. MEDICATIONS: Current Facility-Administered Medications: acetaminophen (TYLENOL) tablet 650 mg, 650 mg, oral, Q6H PRN, Becky Montana MD, 650 mg at 12/30/23 0755 albuterol HFA (PROVENTIL HFA,VENTOLIN HFA,PROAIR HFA) 90 mcg/actuation inhaler 2 puff, 2 puff, inhalation, Q4H PRN (RT), Becky Montana MD aspirin chewable tablet 81 mg, 81 mg, oral, Daily, Becky Montana MD, 81 mg at 12/30/23 0755 calcium carbonate (TUMS) chewable tablet 1,000 mg, 400 mg of elemental calcium, oral, TID PRN, Becky Montana MD cetirizine (ZyrTEC) tablet 10 mg, 10 mg, oral, Daily, Bekcy Montana MD, 10 mg at 12/30/23 0755 donepeziL (ARICEPT) tablet 10 mg, 10 mg, oral, Nightly, Becky Montana MD, 10 mg at 12/29/232042 enoxaparin (LOVENOX) syringe 40 mg, 40 mg, subcutaneous, Daily-2100, Becky Rudd MD, 40 mg at 12/29/232042 fluticasone furoate-vilanteroL (BREO ELLIPTA) 100-25 mcg/dose inhaler 1 puff, 1 puff, inhalation, Daily (RT), Becky Montana MD, 1 puff at 12/30/23 100 fluticasone propionate (FLONASE) 50 mcg/actuation nasal spray 1 spray, 1 spray, each nostril, BID, Becky Montana MD, 1 spray at 12/30/23 0755 gabapentin (NEURONTIN) capsule 300 mg, 300 mg, oral, TID, Becky Montana MD, 300 mg at 12/30/23 0755 guaiFENesin ER (MUCINEX) extended release tablet 600 mg, 600 mg, oral, BID, Jl Montana MD, 600 mg at 12/30/23 0755 hydrocortisone 2.5 % cream, , topical, BID, Becky Montana MD, Given at 12/30/23 0756 levothyroxine (SYNTHROID) tablet 150 mcg, 150 mcg, oral, Daily - 0600, Becky Rudd MD, 150 mcg at 12/30/23 0612 lidocaine (LIDODERM) 5 % patch 1 patch, 1 patch, transdermal, Q24H, Becky Rudd MD, 1 patch at 12/29/23 1138 ofloxacin (OCUFLOX) 0.3 % ophthalmic solution 1 drop, 1 drop, each eye, Daily PRN, Becky Montana MD ondansetron (ZOFRAN) tablet 4 mg, 4 mg, oral, TID PRN, Becky Montana MD pantoprazole DR (PROTONIX) extended release tablet 40 mg, 40 mg, oral, BID, Jl Montana MD, 40 mg at 12/30/23 075 ramelteon (ROZEREM) tablet 8 mg, 8 mg, oral, Nightly PRN, Becky Montana MD, 8 mg at 12/28/232133 rosuvastatin (CRESTOR) tablet 40 mg, 40 mg, oral, Daily, Becky Montana MD, 40 mg at 12/30/23 075 senna-docusate (PERICOLACE) 8.6-50 mg per tablet 1 tablet, 1 tablet, oral, BID PRN, Becky Montana MD, 1 tablet at 12/19/23 08 simethicone (MYLICON) chewable tablet 80 mg, 80 mg, oral, TID PRN, Becky Rudd MD tamsulosin (FLOMAX) extended release capsule 0.4 mg, 0.4 mg, oral, Nightly, Jl Montana MD, 0.4 mg at 12/29/232042 tiZANidine (ZANAFLEX) tablet 2 mg, 2 mg, oral, TID PRN, Becky Montana MD, 2 mg at 12/27/232025 traMADoL (ULTRAM) tablet 50 mg, 50 mg, oral, Q6H PRN, Becky Montana MD, 50 mg at 12/28/23 0806 ASSESSMENT/PLAN: MEDICAL PLAN OF CARE: 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 Reviewed home medicine - on spironolactone 25mg and lasix 20mg 12/26: controlled 12/27: controlled 12/28: controlled 12/29: controlled HLD: continue rosuvastatin 40mg AAA: no current medications Hypothyroidism: continue levothyroxine 150mcg GERD: continue pantoprazole 40mg bid Alzheimer: continue donepezil 10mg qhs Depression: no current medications Asthma: continue breo ellipta 100-25 daily BPH: continue flomax 0.4mg qhs 12/23: reviewed home medications - on oxybutynin 15mg and gemtesa 75mg for overactive bladder - hold for now Neuropathy: continue gabapentin 300mg tid Pain: Start Tylenol 650mg q6h prn, oxycodone 5mg q4h prn 12/22: lidoderm patch, decrease frequency of oxycodone to q6h prn 12/23: reviewed home medications, dc oxycodone and start tramadol 50mg q6h pr: heat/ice prn to left elbow Bowels: Start miralax daily, pericolace bid prn, simethicone prn 12/16: dulcolax 10mg x1 12/29: dc miralax Nausea: Start Zofran prn, Tums prn Congestion: start mucinex 600mg bid 12/23: start home cetirizine 10mg 12/26: start flonase bid Knee pain: consult to orthopedics for injection per patient request 12/29 received injection yesterday Rash: hydrocortisone cream bid to right hand Diet: Reg/Thin HH 2G Na DVT ppx: restart lovenox Precautions: Fall Weightbearing status: full Code: Full Code Care discussed with Nursing Reviewed vital signs, intake, bowel, and bladder - as above REHAB PLAN OF CARE: Patient's expected intensity and duration of participation in the interdisciplinary rehabilitation program and disciplines that comprise this team: Therapies required to achieve goals:The patient will benefit from integrated coordination of care from the following interdisciplinary services: Medical Supervision, 24 hours Rehabilitation Nursing, Physical Therapy, Occupational Therapy, Case Management; Social Work; Therapeutic Recreation; SpeechTherapy; Flatwork Feeder Frequency and duration of therapies expect to be:Expected intensity and frequency of participation in the interdisciplinary rehab program is: 3 hours per day except Wednesday. Expected intensity and frequency of Physical Therapy (PT): 1.5 hours per day over 5-7 days for the duration of length of stay Expected intensity and frequency of Occupational Therapy (OT): 1.5 hours per day over 5-7 days per week for the duration of length of stay Expected intensity and frequency of Speech Therapy (NUMEROLOGIST): 1 hour per day per day over 5-7 days per week for the duration of length of stay FUNCTIONAL CHANGE: DISCHARGE PLANNING: Expected Discharge Date: Sunday 01/07 with home health PT OT Equipment: TBD Family Training: SW to set up Education: Follow up Appointments: PCP 1-2 weeks Becky Montana MD Physical Medicine and Rehabilitation I can be reached from 7am-7pm through [email or web address] chat. Hospitalist forest fire prevention manager from 7pm-7am * Paresh Prieto SLP - 12/30/2023 10:05 AM CDT SPEECH LANGUAGE PATHOLOGY PROGRESS NOTE Patient's Name: Gunjan Gtz Jr. : 1945 Age: 78 y.o. Time In: 9:33 Time Out: 10:02 Patient Active Problem List Diagnosis Primary osteoarthritis of both knees Subchondral insufficiency fracture of condyle of left femur (CMS/HCC) (HCC) Closed fracture of left tibial plateau with delayed healing Closed fracture of right tibial plateau with delayed healing Closed nondisplaced osteochondral fracture of left patella with delayed healing Closed osteochondral fracture of patella, right, with delayed healing, subsequent encounter Complex tear of medial meniscus of right knee as current injury Complex tear of medial meniscus of left knee as current injury Goiter Breast pain, right Cataract of right eye Diplopia Esotropia Hypertropia of right eye Skin lesion of breast Edema Intermittent claudication (HCC) Iron deficiency anemia Peripheral vascular disease (HCC) Pain due to total right knee replacement (CMS/HCC) (HCC) Hamstring tendinitis of right thigh Quadriceps weakness Idiopathic peripheral neuropathy Abnormality of gait and mobility Hx of total knee replacement, right Neuropathy (CMS/HCC) 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 Biceps tendinitis of left upper extremity Tear of left glenoid labrum Coffee ground emesis Upper GI bleed Acquired hypothyroidism Acute blood loss anemia Lung nodule Nocturnal cough Hiatal hernia Infrarenal abdominal aortic aneurysm (AAA) without rupture ([facility]) Acute CVA (cerebrovascular accident) ([facility]) Moderate malnutrition (CMS/HCC) Primary osteoarthritis of left knee Past Medical History: Diagnosis Date Acute gastric ulcer without hemorrhage or perforation Ulcer, gastric, acute - (Added by TW Conv) Alzheimer's dementia ([facility]) Asthma Back pain Cataract Closed fracture of left tibial plateau with delayed healing Closed fracture of right tibial plateau with delayed healing Closed nondisplaced osteochondral fracture of left patella with delayed healing Closed osteochondral fracture of patella, right, with delayed healing, subsequent encounter Clotting disorder (CMS/HCC) ([facility]) Complex tear of medial meniscus of left knee as current injury Complex tear of medial meniscus of right knee as current injury Cramps of lower extremity Diverticulitis of colon Easy bruisability Fatigue Frequent urination Gastroesophageal reflux disease GERD Hypothyroidism Incontinence of urine Muscle weakness Osteoarthritis Osteoarthritis Peptic ulcer Peptic ulcer disease Seizures ([facility]) 1997 last seizure in 1997 SOB (shortness of breath) on exertion Subchondral insufficiency fracture of condyle of left femur (CMS/HCC) ([facility]) Vertigo Vision changes Visual disturbance hx of double vision, corrective lenses Past Surgical History: Procedure Laterality Date CATARACT EXTRACTION, BILATERAL Bilateral 2018 HERNIA REPAIR 1979 Hiatal Hernia repair KNEE ARTHROSCOPY Bilateral THYROIDECTOMY 12/27/2019 SUBJECTIVE MENTAL STATUS: Awake and cooperative. Sitting up in recliner. PAIN: Pre Therapy Pain Level: 0/10 Pain Location: N/A Pain Intervention: N/A Post Therapy Pain Level/Response to Intervention: 0/10 OBJECTIVE PRECAUTIONS: Fall SWALLOWING: Patient continues to tolerate regular consistency diet/thin liquids COGNITION: Decreased short term memory, thought organization and insight. COMMUNICATION: Mild dysarthric speech. Speech is intelligible during spontaneous sentences. TREATMENT ACTIVITIES: Recall daily activities/recent events with 75% accuracy Provide appropriate solutions to safety situations with 80% accuracy Elicit spontaneous sentences with 100% intelligibility EDUCATION: PATIENT/FAMILY EDUCATION: Discussed discharge date, recommendations and plans. Response to Education: Understanding verbalized, Needs reinforcement ASSESSMENT Activity Tolerance/Response to S.T.: Tolerated speech therapy session with no complaints Barriers to learning: Cognition, Vision Current status: Patient with mild/moderate cognitive deficits in memory, insight and thought organization. Progress toward goals: Patient continues to progress toward previously set goals which remain appropriate at this time. PLAN Multi-Disciplinary Problems (from Speech Therapy) Active Problems Problem: NUMEROLOGIST Misc Start Date: 12/16/23 Goal Start Date Expected End Date End Date [facility] [place]/16[place]23 01/06/24 -- Goal Details: Patient to perform short term memory tasks using compensatory strategies with 80% accuracy. Goal Start Date Expected End Date End Date [facility] - [facility] 12/16/23 01/06/24 -- Goal Details: Patient to perform functional problem solving/reasoning tasks with 80% accuracy. Goal Start Date Expected End Date End Date [facility] [place] 12/16/23 01/06/24 -- Goal Details: Patient to attend to left visual field 80% of the time given 2-3 verbal prompts. Goal Start Date Expected End Date End Date [facility] [place] 12/16/23 01/06/24 -- Goal Details: Patient's speech to be 90% intelligible during conversational tasks utilizing compensatory strategies. Frequency of Treatment: BID, 5xs weekly Recommendations: Recommend home with 24 hour supervision at discharge. If this is the last note, consider this the discharge summary. * Rosalia Marinelli, OT - 12/30/2023 10:00 AM CDT Occupational Therapy NOTE TYPE: OT TREATMENT ([facility] BEDSIDE SESSION) Patient's Name: Gunjan Gtz Jr. Age / Sex: 78 y.o. / male Room: [place] [address] : 1945 Date: 12/30/23 Time In: 1000 Time Out: 1055 Patient Active Problem List Diagnosis Primary osteoarthritis of both knees Subchondral insufficiency fracture of condyle of left femur (CMS/HCC) (HCC) Closed fracture of left tibial plateau with delayed healing Closed fracture of right tibial plateau with delayed healing Closed nondisplaced osteochondral fracture of left patella with delayed healing Closed osteochondral fracture of patella, right, with delayed healing, subsequent encounter Complex tear of medial meniscus of right knee as current injury Complex tear of medial meniscus of left knee as current injury Goiter Breast pain, right Cataract of right eye Diplopia Esotropia Hypertropia of right eye Skin lesion of breast Edema Intermittent claudication (HCC) Iron deficiency anemia Peripheral vascular disease (HCC) Pain due to total right knee replacement (CMS/HCC) (HCC) Hamstring tendinitis of right thigh Quadriceps weakness Idiopathic peripheral neuropathy Abnormality of gait and mobility Hx of total knee replacement, right Neuropathy (CMS/[facility]) 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 Biceps tendinitis of left upper extremity Tear of left glenoid labrum Coffee ground emesis Upper GI bleed Acquired hypothyroidism Acute blood loss anemia Lung nodule Nocturnal cough Hiatal hernia Infrarenal abdominal aortic aneurysm (AAA) without rupture ([facility]) Acute CVA (cerebrovascular accident) ([facility]) Moderate malnutrition (CMS/[facility]) Primary osteoarthritis of left knee Past Medical History: Diagnosis Date Acute gastric ulcer without hemorrhage or perforation Ulcer, gastric, acute - (Added by TW Conv) Alzheimer's dementia ([facility]) Asthma Back pain Cataract Closed fracture of left tibial plateau with delayed healing Closed fracture of right tibial plateau with delayed healing Closed nondisplaced osteochondral fracture of left patella with delayed healing Closed osteochondral fracture of patella, right, with delayed healing, subsequent encounter Clotting disorder ([facility]) ([facility]) Complex tear of medial meniscus of left knee as current injury Complex tear of medial meniscus of right knee as current injury Cramps of lower extremity Diverticulitis of colon Easy bruisability Fatigue Frequent urination Gastroesophageal reflux disease GERD Hypothyroidism Incontinence of urine Muscle weakness Osteoarthritis Osteoarthritis Peptic ulcer Peptic ulcer disease Seizures ([facility]) 1997 last seizure in 1997 SOB (shortness of breath) on exertion Subchondral insufficiency fracture of condyle of left femur ([facility]) ([facility]) Vertigo Vision changes Visual disturbance hx of double vision, corrective lenses Past Surgical History: Procedure Laterality Date CATARACT EXTRACTION, BILATERAL Bilateral 2018 HERNIA REPAIR 1980 Hiatal Hernia repair KNEE ARTHROSCOPY Bilateral THYROIDECTOMY 12/27/2019 Precautions (Including Weight-Bearing): Fall risk and Bed / chair alarm SUBJECTIVE: Do you have my evacuation plan? Therapy Pain: Pre-therapy pain level: 0 / 10 Pain location: No pain - Location N/A Pain intervention(s): No pain - Intervention N/A Post-therapy pain level: 0 / 10 Pain scale used: 0-10 SCALE OBJECTIVE: APPEARANCE: Presentation upon OT arrival: Patient Sitting in bedside recliner Presentation upon OT departure: PATIENT Sitting in manual wheelchair with staff assistance Bed / chair alarm in place and activated upon OT departure: Yes Call light within arms reach of patient at end of session: No - due to patient taken to physical therapy gym Completed patient handoff and notified Physical Therapist / Physical Therapist Human Resources Clerk, name: Shannan, of patient's location and functional status upon completion of session. COGNITIVE / PERCEPTUAL: Alert and oriented to conversation SELF CARE: Shower / Bathe Self Type of bathing: spongebathing Location of shower / bathe self: Sitting in manual wheelchair and Standing at grab bar Tasks completed: all components Components that required assistance (if applicable): MAX ASSIST RIGHT ARM and MAX ASSIST BUTTOCKS Overall assist level: Partial / moderate assistance: Less than half (1% - 49%) Adaptive equipment (if applicable): no assistive device Additional documentation: MOD assist overall. Max assist to wash RUE. Max assist to wash buttock instanding Oral Hygiene Location of oral hygiene: Sitting in manual wheelchair Overall assist level: Supervision assistance / verbal cue(s) Additional documentation: Patient placed towel on lap to stabilize toothbrush when applying toothpaste Other Grooming Tasks Location of other grooming tasks: Sitting in manual wheelchair Tasks completed: COMBING HAIR and APPLYING DEODORANT Overall assist level: Supervision assistance / verbal cue(s) Additional documentation: N/A UE Dressing Location of UE dressing: Sitting in manual wheelchair Tasks completed: Pullover shirt and Undershirt Overall assist level: Partial / moderate assistance: Less than half (1% - 49%) Additional documentation: MIN assist to fully pull shirt down in back LE Dressing (Underwear / Pants) Location of LE dressing (Underwear / Pants): Sitting in manual wheelchair and Standing at grab bar Tasks completed: Elastic waist pants and Incontinence briefs as underwear Overall assist level: Substantial / maximal assistance: More than half (50% - 99%) Additional documentation: MAX assist overall. Patient requires mod assist to thread LLE and min assist to thread RLE. Max assist to complete hip components at grab bar with CGA for balance Putting On / Taking Off Footwear Location of putting on / taking off footwear: Sitting in manual wheelchair Tasks completed: Sock(s) and Slip-on shoe(s) Overall assist level: Substantial / maximal assistance: More than half (50% - 99%) Additional documentation: N/A MOBILITY: Transfers: Min assist for stand pivot from recliner to w/c using rasheed aide CGA for sit <> stand at grab bar HEARING / SPEECH / VISION: Expression of ideas and wants Overall assist level: WITHOUT DIFFICULTY Understanding verbal and non-verbal content Overall assist level: UNDERSTANDS Caregiver present (yes / no): No Education & training provided: Role of OT, OT plan of care, ADL training, Functional transfer training, Balance training, and Safety education ASSESSMENT: Activity tolerance / response to OT: GOOD PARTICIPATION, GOOD MOTIVATION, and RECEPTIVE TO EDUCATION / TRAINING Progress towards goals: Please refer to Care Plan from this date for progress towards individual goals. PLAN: Therapy Plan: Please refer to most recent Inpatient Rehabilitation Team Conference note for discharge plan, including location, recommended level of supervision, and arrangements. Frequency of therapy: BID SESSIONS 5 DAYS / WEEK TO ADDRESS PREVIOUSLY ESTABLISHED DEFICITS AND GOALS Rosalia Marinelli, OT 12/30/23 * Madie Oneill, DIRECTOR OF RECRUITING - 12/29/2023 2:22 PM CDT Physical Therapy PT PROGRESS NOTE Gunjan Gtz Jr. 78 y.o. 1945 Past Medical History: Diagnosis Date Acute gastric [...] with delayed healing, subsequent encounter Clotting disorder (CMS/[facility]) ([facility]) Complex tear of medial meniscus of left knee as current injury Complex tear of medial meniscus of right knee as current injury Cramps of lower extremity Diverticulitis of colon Easy bruisability Fatigue Frequent urination Gastroesophageal reflux disease GERD Hypothyroidism Incontinence of urine Muscle weakness Osteoarthritis Osteoarthritis Peptic ulcer Peptic ulcer disease Seizures (HCC) 1997 last seizure in 1997 SOB (shortness of breath) on exertion Subchondral insufficiency fracture of condyle of left femur (CMS/HCC) ([facility]) Vertigo Vision changes Visual disturbance hx of double vision, corrective lenses Past Surgical History: Procedure Laterality Date CATARACT EXTRACTION, BILATERAL Bilateral 2018 HERNIA REPAIR 1980 Hiatal Hernia repair KNEE ARTHROSCOPY Bilateral THYROIDECTOMY 12/27/2019 Patient Active Problem List Diagnosis Primary osteoarthritis of both knees Subchondral insufficiency fracture of condyle of left femur (CMS/HCC) ([facility]) Closed fracture of left tibial plateau with delayed healing Closed fracture of right tibial plateau with delayed healing Closed nondisplaced osteochondral fracture of left patella with delayed healing Closed osteochondral fracture of patella, right, with delayed healing, subsequent encounter Complex tear of medial meniscus of right knee as current injury Complex tear of medial meniscus of left knee as current injury Goiter Breast pain, right Cataract of right eye Diplopia Esotropia Hypertropia of right eye Skin lesion of breast Edema Intermittent claudication (HCC) Iron deficiency anemia Peripheral vascular disease (HCC) Pain due to total right knee replacement (CMS/HCC) (HCC) Hamstring tendinitis of right thigh Quadriceps weakness Idiopathic peripheral neuropathy Abnormality of gait and mobility Hx of total knee replacement, right Neuropathy (CMS/HCC) 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 Biceps tendinitis of left upper extremity Tear of left glenoid labrum Coffee ground emesis Upper GI bleed Acquired hypothyroidism Acute blood loss anemia Lung nodule Nocturnal cough Hiatal hernia Infrarenal abdominal aortic aneurysm (AAA) without rupture (HCC) Acute CVA (cerebrovascular accident) (HCC) Moderate malnutrition (CMS/HCC) TIME IN: 230 TIME OUT: 315 SUBJECTIVE I got a date. Patient referring to receiving discharge date. Patient is agreeable to therapy. MENTAL STATUS/ORIENTATION: Alert and oriented x 3-4; not fully aware of his situation. PAIN: Pre-therapy pain level: 12/18 Pain location: L knee Pain intervention: cortisone injection received during therapy session Post-therapy pain level/response to intervention: 12/18 OBJECTIVE PRECAUTIONS: fall APPEARANCE/POSTURE: present in therapy gym, seated in W/C, chair alarm active MOBILITY DOCUMENTATION: Bed Mobility: NT Transfers: sit <> stand with CG assist ~ MIN assist. With correct sequencing and positioning,patient is CG assist to stand. Ambulation: 20' with rasheed-aide and CG assist on straight path. MIN assist while turning for transfer. Deviations as in AM. Narrow SHANA. Improved balance, cane management during turn for transfer to Nu-Step Stairs: NT Wheelchair management & propulsion: NT TREATMENT: Patient stands with intermittent UE support on tray table while placing pegs into peg board on wall. Patient stands ~2:30 with R LE on 3 block then repeats exercise with L LE on 3 block. MIN assistfor stability with L LE on block and MOD assist for balance with R LE on block. Patient performs 11 minutes on Nu-Step machine with decreased speed. Multiple stops / starts due todiscomfort in knee post injection. Following parameters: Seat: 10 Arm: 9 Load: 4 Step: 212 Appearance/Posture at end of treatment session: returned to room, seated in W/C with chair alarm active, call light in reach, family friend present EDUCATION: PATIENT/FAMILY EDUCATION: balance tips, posture cues Response to Education: needs reinforcement ASSESSMENT Activity tolerance/response to PT: GOOD Patient is improving in mobility tasks, balance and safety.Limited by knee pain, decreased strength and coordination of L LE Barriers to learning: unchanged from AM Barriers to discharge: unchanged from AM Patient continues progressing toward previously set goals which remain appropriate at this time. PLAN Patient to be seen bid 5x/week to address previously established deficits and goals. * Paresh Prieto, NUMEROLOGIST - 12/29/2023 2:00 PM CDT SPEECH LANGUAGE PATHOLOGY PROGRESS NOTE Patient's Name: Gunjan Gtz Jr. : 1945 Age: 78 y.o. Time In: 13:05 Time Out: 13:30 Patient Active Problem List Diagnosis Primary osteoarthritis of both knees Subchondral insufficiency fracture of condyle of left femur (CMS/HCC) (HCC) Closed fracture of left tibial plateau with delayed healing Closed fracture of right tibial plateau with delayed healing Closed nondisplaced osteochondral fracture of left patella with delayed healing Closed osteochondral fracture of patella, right, with delayed healing, subsequent encounter Complex tear of medial meniscus of right knee as current injury Complex tear of medial meniscus of left knee as current injury Goiter Breast pain, right Cataract of right eye Diplopia Esotropia Hypertropia of right eye Skin lesion of breast Edema Intermittent claudication (HCC) Iron deficiency anemia Peripheral vascular disease (HCC) Pain due to total right knee replacement (CMS/HCC) (HCC) Hamstring tendinitis of right thigh Quadriceps weakness Idiopathic peripheral neuropathy Abnormality of gait and mobility Hx of total knee replacement, right Neuropathy (CMS/HCC) 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 Biceps tendinitis of left upper extremity Tear of left glenoid labrum Coffee ground emesis Upper GI bleed Acquired hypothyroidism Acute blood loss anemia Lung nodule Nocturnal cough Hiatal hernia Infrarenal abdominal aortic aneurysm (AAA) without rupture (HCC) Acute CVA (cerebrovascular accident) ([facility]) Moderate malnutrition (CMS/HCC) Past Medical History: Diagnosis Date Acute gastric ulcer without hemorrhage or perforation Ulcer, gastric, acute - (Added by TW Conv) Alzheimer's dementia ([facility]) Asthma Back pain Cataract Closed fracture of left tibial plateau with delayed healing Closed fracture of right tibial plateau with delayed healing Closed nondisplaced osteochondral fracture of left patella with delayed healing Closed osteochondral fracture of patella, right, with delayed healing, subsequent encounter Clotting disorder (CMS/HCC) ([facility]) Complex tear of medial meniscus of left knee as current injury Complex tear of medial meniscus of right knee as current injury Cramps of lower extremity Diverticulitis of colon Easy bruisability Fatigue Frequent urination Gastroesophageal reflux disease GERD Hypothyroidism Incontinence of urine Muscle weakness Osteoarthritis Osteoarthritis Peptic ulcer Peptic ulcer disease Seizures ([facility]) 1997 last seizure in 1997 SOB (shortness of breath) on exertion Subchondral insufficiency fracture of condyle of left femur (CMS/HCC) ([facility]) Vertigo Vision changes Visual disturbance hx of double vision, corrective lenses Past Surgical History: Procedure Laterality Date CATARACT EXTRACTION, BILATERAL Bilateral 2018 HERNIA REPAIR 1979 Hiatal Hernia repair KNEE ARTHROSCOPY Bilateral THYROIDECTOMY 12/27/2019 SUBJECTIVE MENTAL STATUS: Patient awake and cooperative. Sitting up in recliner. States, I feel good. PAIN: Pre Therapy Pain Level: 0/10 Pain Location: N/A Pain Intervention: N/A Post Therapy Pain Level/Response to Intervention: 0/10 OBJECTIVE PRECAUTIONS: Fall SWALLOWING: Patient continues to tolerate regular consistency diet/thin liquids COGNITION: Decreased memory and thought organization COMMUNICATION: Mild dysarthric speech TREATMENT ACTIVITIES: Insight into deficits - discharge situations with 70% accuracy Recall daily activities/recent events with 100% accuracy EDUCATION: PATIENT/FAMILY EDUCATION: Discussed discharge date and discharge recommendations. Response to Education: Needs reinforcement ASSESSMENT Activity Tolerance/Response to S.T.: Tolerated speech therapy session with no complaints Barriers to learning: Cognition, Vision Current status: Patient continues to demonstrate decreased insight into deficits. Mild dysarthric speech. Progress toward goals: Patient continues to progress toward previously set goals which remain appropriate at this time. PLAN Multi-Disciplinary Problems (from Speech Therapy) Active Problems Problem: NUMEROLOGIST Misc Start Date: 12/16/23 Goal Start Date Expected End Date End Date NUMEROLOGIST LTG - Misc 1 12/16/23 12/23/23 -- Goal Details: Patient to perform short term memory tasks using compensatory strategies with 80% accuracy. Goal Start Date Expected End Date End Date [facility] [place] 12/16/23 12/23/23 -- Goal Details: Patient to perform functional problem solving/reasoning tasks with 80% accuracy. Goal Start Date Expected End Date End Date [facility] [place] 12/16/23 12/23/23 -- Goal Details: Patient to attend to left visual field 80% of the time given 2-3 verbal prompts. Goal Start Date Expected End Date End Date [facility] [place] 12/16/23 12/23/23 -- Goal Details: Patient's speech to be 90% intelligible during conversational tasks utilizing compensatory strategies. Frequency of Treatment: BID, 5xs weekly Recommendations: Recommend home with 24 hour supervision at discharge. If this is the last note, consider this the discharge summary. * Sravani Helms, OT - 12/29/2023 1:30 PM CDT Occupational Therapy NOTE TYPE: OT TREATMENT ([facility] DEPARTMENT SESSION) PATIENT'S NAME: Gunjan Gtz Jr. AGE / SEX: 78 y.o. / male ROOM: [place] [address] : 1945 DATE: 12/29/23 TIME IN: 1330 TIME OUT: 1405 Patient Active Problem List Diagnosis Primary osteoarthritis of both knees Subchondral insufficiency fracture of condyle of left femur (CMS/HCC) ([facility]) Closed fracture of left tibial plateau with delayed healing Closed fracture of right tibial plateau with delayed healing Closed nondisplaced osteochondral fracture of left patella with delayed healing Closed osteochondral fracture of patella, right, with delayed healing, subsequent encounter Complex tear of medial meniscus of right knee as current injury Complex tear of medial meniscus of left knee as current injury Goiter Breast pain, right Cataract of right eye Diplopia Esotropia Hypertropia of right eye Skin lesion of breast Edema Intermittent claudication ([facility]) Iron deficiency anemia Peripheral vascular disease ([facility]) Pain due to total right knee replacement (CMS/HCC) ([facility]) Hamstring tendinitis of right thigh Quadriceps weakness Idiopathic peripheral neuropathy Abnormality of gait and mobility Hx of total knee replacement, right Neuropathy (CMS/HCC) 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 Biceps tendinitis of left upper extremity Tear of left glenoid labrum Coffee ground emesis Upper GI bleed Acquired hypothyroidism Acute blood loss anemia Lung nodule Nocturnal cough Hiatal hernia Infrarenal abdominal aortic aneurysm (AAA) without rupture ([facility]) Acute CVA (cerebrovascular accident) ([facility]) Moderate malnutrition (CMS/HCC) Past Medical History: Diagnosis Date Acute gastric ulcer without hemorrhage or perforation Ulcer, gastric, acute - (Added by TW Conv) Alzheimer's dementia ([facility]) Asthma Back pain Cataract Closed fracture of left tibial plateau with delayed healing Closed fracture of right tibial plateau with delayed healing Closed nondisplaced osteochondral fracture of left patella with delayed healing Closed osteochondral fracture of patella, right, with delayed healing, subsequent encounter Clotting disorder (CMS/[facility]) ([facility]) Complex tear of medial meniscus of left knee as current injury Complex tear of medial meniscus of right knee as current injury Cramps of lower extremity Diverticulitis of colon Easy bruisability Fatigue Frequent urination Gastroesophageal reflux disease GERD Hypothyroidism Incontinence of urine Muscle weakness Osteoarthritis Osteoarthritis Peptic ulcer Peptic ulcer disease Seizures ([facility]) 1997 last seizure in 1997 SOB (shortness of breath) on exertion Subchondral insufficiency fracture of condyle of left femur (CMS/HCC) ([facility]) Vertigo Vision changes Visual disturbance hx of double vision, corrective lenses Past Surgical History: Procedure Laterality Date CATARACT EXTRACTION, BILATERAL Bilateral 2018 HERNIA REPAIR 1979 Hiatal Hernia repair KNEE ARTHROSCOPY Bilateral THYROIDECTOMY 12/27/2019 PRECAUTIONS (INCLUDING WEIGHT-BEARING): Fall risk and Bed / chair alarm SUBJECTIVE: I need to practice my balance THERAPY PAIN: PRE-THERAPY PAIN LEVEL: 0 / 10 PAIN LOCATION: No pain - Location N/A PAIN INTERVENTION(S): No pain - Intervention N/A POST-THERAPY PAIN LEVEL: 0 / 10 PAIN SCALE USED: 0-10 SCALE OBJECTIVE: APPEARANCE: PRESENTATION UPON OT ARRIVAL: PATIENT Sitting in bedside recliner PRESENTATION UPON OT DEPARTURE: PATIENT Sitting in manual wheelchair at bedside BED / CHAIR ALARM IN PLACE AND ACTIVATED UPON OT DEPARTURE: Yes CALL LIGHT WITHIN ARMS REACH OF PATIENT AT END OF SESSION: Yes COMPLETED PATIENT HANDOFF AND NOTIFIED Physical Therapist / Physical Therapist Human Resources Clerk, NAME: Marcia, OF PATIENT'S LOCATION AND FUNCTIONAL STATUS UPON COMPLETION OF SESSION VITAL SIGNS: Vitals stable throughout session. No signs or symptoms of adverse reactions COGNITIVE / PERCEPTUAL: A&O x 4. Follows 1 step commands 100% UE THERAPEUTIC EXERCISES: EXERCISE TYPE: L UE SROM EXERCISE(S) COMPLETED WITH NUMBER OF REPETITIONS: SHOULDER FLEXION 10 , SHOULDER HORIZONTAL ABDUCTION 10, SCAPULAR ELEVATION 10 , and SCAPULAR DEPRESSION 10 NUMBER OF SETS: 2 ASSIST LEVEL: physical assistance: partial/moderate assistance LOCATION OF COMPLETION: sitting in manual w/c TOLERANCE: patient appeared to tolerate activity well with no c/o of pain MOBILITY: TRANSFERS: Bedside recliner to manual w/c using rasheed cane with MIN assist for steadying. W/c sitting to and from standing using tabletop for LUE support with CGA-MIN assist for safety and steadying LIVING SKILLS: IADL ACTIVITY: light cleaning (OVERALL ASSIST LEVEL): CGA LOCATION: standing at tabletop ACTIVITY DESCRIPTION: stood and utilized LUE to clean table with standing increments of the following lengths: 2 minute 20 seconds, 1 minute 20 seconds. Patient demonstrated ability to cross midline while maintaining balance with CGA-MIN assist for standing balance. CAREGIVER PRESENT (YES / NO): No EDUCATION & TRAINING PROVIDED: Role of OT, OT plan of care, ADL training, Functional transfer training, Balance training, IADL training, Safety education, and UE home exercise program ASSESSMENT: ACTIVITY TOLERANCE / RESPONSE TO OT: GOOD PARTICIPATION, GOOD MOTIVATION, and RECEPTIVE TO EDUCATION / TRAINING PROGRESS TOWARDS GOALS: PLEASE REFER TO CARE PLAN FROM THIS DATE FOR PROGRESS TOWARDS INDIVIDUAL GOALS PLAN: PLEASE REFER TO MOST RECENT INPATIENT REHABILITATION TEAM CONFERENCE NOTE FOR DISCHARGE PLAN, INCLUDING LOCATION, RECOMMENDED LEVEL OF SUPERVISION AND ARRANGEMENTS. FREQUENCY OF THERAPY: BID SESSIONS 5 DAYS / WEEK TO ADDRESS PREVIOUSLY ESTABLISHED DEFICITS AND GOALS Sravani Helms OT 12/29/23 * Becky Montana MD - 12/29/2023 11:33 AM CDT INPATIENT REHABILITATION DAILY PROGRESS NOTE CHIEF COMPLAINT: right posterior limb internal capsule infarct SUBJECTIVE: Wants knee injection from Dr. Sepulveda. Reports itchy rash on right hand. OBJECTIVE: VITALS: Vitals: 12/28/23 1000 12/28/23 1855 12/29/23 0649 12/29/23 0950 BP: 120/72 139/78 BP Location: Right arm Patient Position: Sitting Sitting Pulse: 55 74 Resp: 18 18 Temp: 36.5 ??C (97.7 ??F) 36.8 ??C (98.2 ??F) TempSrc: Oral Oral SpO2: 98% 97% 91% 95% Weight: Height: PHYSICAL EXAM: General: no acute distress, in chair HEENT: normocephalic, trachea midline Heart: rrr Lungs: ctab GI: soft, nontender Neuro: awake, alert Skin: red raised papules right hand LABS/RADIOLOGY/DIAGNOSTIC REVIEW Recent Labs Lab Units 12/27/23 0438 WBC K/cumm 6.7 HEMOGLOBIN g/dL 12.8* HEMATOCRIT % 39.3 PLATELETS K/cumm 235 Recent Labs Lab Units 12/27/23 0438 SODIUM mmol/L 141 POTASSIUM PLASMA mmol/L 4.2 CHLORIDE mmol/L 107 CO2 mmol/L 26 ANIONGAP mmol/L 8 GLUCOSE mg/dL 107 BUN SERUM mg/dL 18 CREATININE mg/dL 1.30 CALCIUM mg/dL 8.9 ALBUMIN g/dL 3.2* ALK PHOS Units/L 115 ALT Units/L 22 AST Units/L 23 BILIRUBIN TOTAL mg/dL 0.5 Recent Labs Lab Units 12/27/23 0438 GLUCOSE mg/dL 107 OT Functional Mobility: 12/20 Functional transfers: MOD-MAX OT Self Care: 12/20 Bathing: MAX Grooming: MAX UB dress:MOD LB dress: MAX Footwear: MAX Toileting:TOTAL NUMEROLOGIST Cognition: Mild/moderate cognitive deficits in short-term memory, insight, and problem solving/reasoning. Left visual inattention. NUMEROLOGIST Communication: Mild dysarthria NUMEROLOGIST Swallowing: Tolerating regular diet with thin liquids PT Functional Mobility: Bed Mobility: sit to supine with min assist for left LE. Supine to sit withcontact guard assist. Transfers: sit to stand with contact guard/min assist, stand to sit with contact guard assist with max verbal cues to complete turn before reaching for chair. Transfers wheelchair to recliner chair stand pivot transfer by holding onto chair with min assist. Ambulation: rasheed-aid 10'x1, 15'x1 with min assist. Patient with decreased gertrudis, step to gait pattern, decreased leftheel strike and push off, narrow SHANA, downward gaze, slight flexed posture at hips, decreased left knee stability with fatigue. Stairs: one step performed 2x: ascending with one handrail and mod assist the first time and min assist the second time. Descending both times with min assist of 1 and CG assist of 1 with decreased left knee stability noted second time. Wheelchair management & propulsion: using right UE and LE 60'x1 and supervision assist with increased time. No results found. MEDICATIONS: Current Facility-Administered Medications: acetaminophen (TYLENOL) tablet 650 mg, 650 mg, oral, Q6H PRN, Becky Montana MD, 650 mg at 12/29/23 0758 albuterol HFA (PROVENTIL HFA,VENTOLIN HFA,PROAIR HFA) 90 mcg/actuation inhaler 2 puff, 2 puff, inhalation, Q4H PRN (RT), Becky Montana MD aspirin chewable tablet 81 mg, 81 mg, oral, Daily, Becky Montana MD, 81 mg at 12/29/23 0758 calcium carbonate (TUMS) chewable tablet 1,000 mg, 400 mg of elemental calcium, oral, TID PRN, Becky Montana MD cetirizine (ZyrTEC) tablet 10 mg, 10 mg, oral, Daily, Becky Montana MD, 10 mg at 12/29/23 0758 donepeziL (ARICEPT) tablet 10 mg, 10 mg, oral, Nightly, Becky Montana MD, 10 mg at 12/28/232128 enoxaparin (LOVENOX) syringe 40 mg, 40 mg, subcutaneous, Daily-2100, Becky Rudd MD, 40 mg at 12/28/232128 fluticasone furoate-vilanteroL (BREO ELLIPTA) 100-25 mcg/dose inhaler 1 puff, 1 puff, inhalation, Daily (RT), Becky Montana MD, 1 puff at 12/29/23 0950 fluticasone propionate (FLONASE) 50 mcg/actuation nasal spray 1 spray, 1 spray, each nostril, BID, Becky Montana MD, 1 spray at 12/29/23 0758 gabapentin (NEURONTIN) capsule 300 mg, 300 mg, oral, TID, Becky Montana MD, 300 mg at 12/29/23 0758 guaiFENesin ER (MUCINEX) extended release tablet 600 mg, 600 mg, oral, BID, Jl Montana MD, 600 mg at 12/29/23 0758 hydrocortisone 2.5 % cream, , topical, BID, Becky Montana MD levothyroxine (SYNTHROID) tablet 150 mcg, 150 mcg, oral, Daily - 0600, Becky Rudd MD, 150 mcg at 12/29/23 0629 lidocaine (LIDODERM) 5 % patch 1 patch, 1 patch, transdermal, Q24H, Becky Rudd MD, 1 patch at 12/28/23 1246 ofloxacin (OCUFLOX) 0.3 % ophthalmic solution 1 drop, 1 drop, each eye, Daily PRN, Becky Montana MD ondansetron (ZOFRAN) tablet 4 mg, 4 mg, oral, TID PRN, Becky Montana MD pantoprazole DR (PROTONIX) extended release tablet 40 mg, 40 mg, oral, BID, Jl Montana MD, 40 mg at 12/29/23 0758 polyethylene glycol (MIRALAX) packet 17 g, 17 g, oral, Daily, Becky Montana MD, 17 gat 12/27/23 0834 ramelteon (ROZEREM) tablet 8 mg, 8 mg, oral, Nightly PRN, Becky Montana MD, 8 mg at 12/28/23 2134 rosuvastatin (CRESTOR) tablet 40 mg, 40 mg, oral, Daily, Becky Montana MD, 40 mg at 12/29/23 0758 senna-docusate (PERICOLACE) 8.6-50 mg per tablet 1 tablet, 1 tablet, oral, BID PRN, Becky Montana MD, 1 tablet at 12/19/23 0837 simethicone (MYLICON) chewable tablet 80 mg, 80 mg, oral, TID PRN, Becky Rudd MD tamsulosin (FLOMAX) extended release capsule 0.4 mg, 0.4 mg, oral, Nightly, Jl Montana MD, 0.4 mg at 12/28/232128 tiZANidine (ZANAFLEX) tablet 2 mg, 2 mg, oral, TID PRN, Becky Montana MD, 2 mg at 12/27/232025 traMADoL (ULTRAM) tablet 50 mg, 50 mg, oral, Q6H PRN, Becky Montana MD, 50 mg at 12/28/23 08 ASSESSMENT/PLAN: MEDICAL PLAN OF CARE: 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 Reviewed home medicine - on spironolactone 25mg and lasix 20mg 12/26: controlled 12/27: controlled 12/28: controlled HLD: continue rosuvastatin 40mg AAA: no current medications Hypothyroidism: continue levothyroxine 150mcg GERD: continue pantoprazole 40mg bid Alzheimer: continue donepezil 10mg qhs Depression: no current medications Asthma: continue breo ellipta 100-25 daily BPH: continue flomax 0.4mg qhs 12/23: reviewed home medications - on oxybutynin 15mg and gemtesa 75mg for overactive bladder - hold for now Neuropathy: continue gabapentin 300mg tid Pain: Start Tylenol 650mg q6h prn, oxycodone 5mg q4h prn 12/22: lidoderm patch, decrease frequency of oxycodone to q6h prn 12/23: reviewed home medications, dc oxycodone and start tramadol 50mg q6h prn3/19: heat/ice prn to left elbow Bowels: Start miralax daily, pericolace bid prn, simethicone prn 12/16: dulcolax 10mg x1 Nausea: Start Zofran prn, Tums prn Congestion: start mucinex 600mg bid 12/23: start home cetirizine 10mg 12/26: start flonase bid Knee pain: consult to orthopedics for injection per patient request Rash: hydrocortisone cream bid to right hand Diet: Reg/Thin HH 2G Na DVT ppx: restart lovenox Precautions: Fall Weightbearing status: full Code: Full Code Care discussed with Nursing Reviewed vital signs, intake, bowel, and bladder - as above Case conference today, refer to note for further information REHAB PLAN OF CARE: Patient's expected intensity and duration of participation in the interdisciplinary rehabilitation program and disciplines that comprise this team: Therapies required to achieve goals:The patient will benefit from integrated coordination of care from the following interdisciplinary services: Medical Supervision, 24 hours Rehabilitation Nursing, Physical Therapy, Occupational Therapy, Case Management; Social Work; Therapeutic Recreation; SpeechTherapy; Flatwork Feeder Frequency and duration of therapies expect to be:Expected intensity and frequency of participation in the interdisciplinary rehab program is: 3 hours per day except Wednesday. Expected intensity and frequency of Physical Therapy (PT): 1.5 hours per day over 5-7 days for the duration of length of stay Expected intensity and frequency of Occupational Therapy (OT): 1.5 hours per day over 5-7 days per week for the duration of length of stay Expected intensity and frequency of Speech Therapy (NUMEROLOGIST): 1 hour per day per day over 5-7 days per week for the duration of length of stay FUNCTIONAL CHANGE: Sit to stand: cga/Ole DISCHARGE PLANNING: Expected Discharge Date: Sunday 01/07 with home health PT OT Equipment: TBD Family Training: SW to set up Education: Follow up Appointments: PCP 1-2 weeks Becky Montana MD Physical Medicine and Rehabilitation I can be reached from 7am-7pm through [employer]. Hospitalist forest fire prevention manager from 7pm-7am * Madie Oneill, DIRECTOR OF RECRUITING - 12/29/2023 10:55 AM CDT Physical Therapy PT PROGRESS NOTE Gunjan Gtz Jr. 78 y.o. 1945 Past Medical History: Diagnosis Date Acute gastric [...] delayed healing, subsequent encounter Clotting disorder (CMS/HCC) ([facility]) Complex tear of medial meniscus of left knee as current injury Complex tear of medial meniscus of right knee as current injury Cramps of lower extremity Diverticulitis of colon Easy bruisability Fatigue Frequent urination Gastroesophageal reflux disease GERD Hypothyroidism Incontinence of urine Muscle weakness Osteoarthritis Osteoarthritis Peptic ulcer Peptic ulcer disease Seizures ([facility]) 1997 last seizure in 1997 SOB (shortness of breath) on exertion Subchondral insufficiency fracture of condyle of left femur (CMS/HCC) ([facility]) Vertigo Vision changes Visual disturbance hx of double vision, corrective lenses Past Surgical History: Procedure Laterality Date CATARACT EXTRACTION, BILATERAL Bilateral 2018 HERNIA REPAIR 1980 Hiatal Hernia repair KNEE ARTHROSCOPY Bilateral THYROIDECTOMY 12/27/2019 Patient Active Problem List Diagnosis Primary osteoarthritis of both knees Subchondral insufficiency fracture of condyle of left femur (CMS/HCC) (HCC) Closed fracture of left tibial plateau with delayed healing Closed fracture of right tibial plateau with delayed healing Closed nondisplaced osteochondral fracture of left patella with delayed healing Closed osteochondral fracture of patella, right, with delayed healing, subsequent encounter Complex tear of medial meniscus of right knee as current injury Complex tear of medial meniscus of left knee as current injury Goiter Breast pain, right Cataract of right eye Diplopia Esotropia Hypertropia of right eye Skin lesion of breast Edema Intermittent claudication (HCC) Iron deficiency anemia Peripheral vascular disease ([facility]) Pain due to total right knee replacement (CMS/HCC) (HCC) Hamstring tendinitis of right thigh Quadriceps weakness Idiopathic peripheral neuropathy Abnormality of gait and mobility Hx of total knee replacement, right Neuropathy (CMS/HCC) 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 Biceps tendinitis of left upper extremity Tear of left glenoid labrum Coffee ground emesis Upper GI bleed Acquired hypothyroidism Acute blood loss anemia Lung nodule Nocturnal cough Hiatal hernia Infrarenal abdominal aortic aneurysm (AAA) without rupture (HCC) Acute CVA (cerebrovascular accident) (HCC) Moderate malnutrition (CMS/HCC) TIME IN: 1100 TIME OUT: 1145 SUBJECTIVE I want to keep walking. Patient agreeable to therapy. MENTAL STATUS/ORIENTATION: Alert and oriented x4 PAIN: Pre-therapy pain level: none Pain location: na Pain intervention: na Post-therapy pain level/response to intervention: none OBJECTIVE PRECAUTIONS: fall APPEARANCE/POSTURE: present in therapy gym, seated in w/c, chair alarm active MOBILITY DOCUMENTATION: Bed Mobility: NT Transfers: sit <> stand from elevated mat surface to rasheed-cane x 10 reps with SBA. Sit <> stand from w/c to rasheed-cane with CG assist throughout session. Ambulation: 18' from EOB to W/C with rasheed-cane and CG assist for straight path. MIN assist during turns. Stairs: NT Wheelchair management & propulsion: 50' forward with mild L neglect for obstacles, decreased pace, mild L neglect with LE use. TREATMENT: Patient sits EOM and performs cross body reaching with joint approximation to L wrist and elbow to place object atop traffic cone x 5 trials. GOOD dynamic sitting balance. Leaning onto L UE with joint approximation and raising R UE straight up with green thera-band x 10 reps. No primary motion from L UE upon return to midline. Appearance/Posture at end of treatment session: returned to room, seated in recliner, chair alarm active, call light in reach. EDUCATION: PATIENT/FAMILY EDUCATION: safety, sequencing, cane placement Response to Education: needs reinforcement ASSESSMENT Activity tolerance/response to PT: GOOD / IMPROVING Patient is improving on all base mobility tasks. Continues with decreased safety insight. Barriers to learning: Physical and Cognitive Barriers to discharge: Limited family support, No caregiver support, Cognitive deficit, Limited safety awareness, Limited insight into deficits, Decreased endurance, Decreased proprioception, Upper extremity weakness, Lower extremity weakness, and Stairs at home Patient continues progressing toward previously set goals which remain appropriate at this time. PLAN Patient to be seen bid 5x/week to address previously established deficits and goals. * Paresh Prieto, NUMEROLOGIST - 12/29/2023 10:32 AM CDT SPEECH LANGUAGE PATHOLOGY PROGRESS NOTE Patient's Name: Gunjan Gtz Jr. : 1945 Age: 78 y.o. Time In: 9:05 Time Out: 9:16 Session interrupted due to scheduling conflict Time In: 9:45 Time Out: 10:00 Patient Active Problem List Diagnosis Primary osteoarthritis of both knees Subchondral insufficiency fracture of condyle of left femur (CMS/HCC) (HCC) Closed fracture of left tibial plateau with delayed healing Closed fracture of right tibial plateau with delayed healing Closed nondisplaced osteochondral fracture of left patella with delayed healing Closed osteochondral fracture of patella, right, with delayed healing, subsequent encounter Complex tear of medial meniscus of right knee as current injury Complex tear of medial meniscus of left knee as current injury Goiter Breast pain, right Cataract of right eye Diplopia Esotropia Hypertropia of right eye Skin lesion of breast Edema Intermittent claudication (HCC) Iron deficiency anemia Peripheral vascular disease (HCC) Pain due to total right knee replacement (CMS/HCC) (HCC) Hamstring tendinitis of right thigh Quadriceps weakness Idiopathic peripheral neuropathy Abnormality of gait and mobility Hx of total knee replacement, right Neuropathy (CMS/HCC) 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 Biceps tendinitis of left upper extremity Tear of left glenoid labrum Coffee ground emesis Upper GI bleed Acquired hypothyroidism Acute blood loss anemia Lung nodule Nocturnal cough Hiatal hernia Infrarenal abdominal aortic aneurysm (AAA) without rupture (HCC) Acute CVA (cerebrovascular accident) (HCC) Moderate malnutrition (CMS/HCC) Past Medical History: Diagnosis Date Acute gastric [...] with delayed healing, subsequent encounter Clotting disorder ([facility]) ([facility]) Complex tear of medial meniscus of left knee as current injury Complex tear of medial meniscus of right knee as current injury Cramps of lower extremity Diverticulitis of colon Easy bruisability Fatigue Frequent urination Gastroesophageal reflux disease GERD Hypothyroidism Incontinence of urine Muscle weakness Osteoarthritis Osteoarthritis Peptic ulcer Peptic ulcer disease Seizures ([facility]) 1997 last seizure in 1997 SOB (shortness of breath) on exertion Subchondral insufficiency fracture of condyle of left femur (CMS/[facility]) ([facility]) Vertigo Vision changes Visual disturbance hx of double vision, corrective lenses Past Surgical History: Procedure Laterality Date CATARACT EXTRACTION, BILATERAL Bilateral 2018 HERNIA REPAIR 1979 Hiatal Hernia repair KNEE ARTHROSCOPY Bilateral THYROIDECTOMY 12/27/2019 SUBJECTIVE MENTAL STATUS: Awake and cooperative; resting in recliner. Reports sleeping better last night. PAIN: Pre Therapy Pain Level: 02/17 Pain Location: left shoulder Pain Intervention: RN aware Post Therapy Pain Level/Response to Intervention: 02/17 OBJECTIVE PRECAUTIONS: Fall SWALLOWING: Patient continues to tolerate regular consistency diet/thin liquids COGNITION: Decreased memory and thought organization COMMUNICATION: Mild dysarthric speech9 TREATMENT ACTIVITIES: Oral motor exercises 10xs each Cognitive Flexibility: Identify 3 methods to completing activities with 100% accuracy EDUCATION: PATIENT/FAMILY EDUCATION: Discussed team conference scheduled for today Response to Education: Understanding verbalized ASSESSMENT Activity Tolerance/Response to S.T.: Tolerated speech therapy session with no complaints Barriers to learning: Cognition, Vision Current status: Patient with mild/moderate decrease with short term memory and thought organization, which appear to be improving. Decreased insight. Progress toward goals: Patient continues to progress toward previously set goals which remain appropriate at this time. PLAN Multi-Disciplinary Problems (from Speech Therapy) Active Problems Problem: [facility] Start Date: 12/16/23 Goal Start Date Expected End Date End Date [facility] [place]16[place]23 12/23/23 -- Goal Details: Patient to perform short term memory tasks using compensatory strategies with 80% accuracy. Goal Start Date Expected End Date End Date [facility] [place] 12/16/23 12/23/23 -- Goal Details: Patient to perform functional problem solving/reasoning tasks with 80% accuracy. Goal Start Date Expected End Date End Date [facility] [place] 12/16/23 12/23/23 -- Goal Details: Patient to attend to left visual field 80% of the time given 2-3 verbal prompts. Goal Start Date Expected End Date End Date [facility] [place] [facility] [place] 12/16/23 12/23/23 -- Goal Details: Patient's speech to be 90% intelligible during conversational tasks utilizing compensatory strategies. Frequency of Treatment: BID, 5xs weekly Recommendations: Recommend home with 24 hour supervision at discharge. If this is the last note, consider this the discharge summary. * Sravani Helms, OT - 12/29/2023 9:59 AM CDT Occupational Therapy NOTE TYPE: OT TREATMENT ([facility] BEDSIDE SESSION) Patient's Name: Gunjan Gtz Jr. Age / Sex: 78 y.o. / male Room: [place] [id number] : 1945 Date: 12/29/23 Time In: 958 Time Out: 1058 Patient Active Problem List Diagnosis Primary osteoarthritis of both knees Subchondral insufficiency fracture of condyle of left femur (CMS/HCC) (HCC) Closed fracture of left tibial plateau with delayed healing Closed fracture of right tibial plateau with delayed healing Closed nondisplaced osteochondral fracture of left patella with delayed healing Closed osteochondral fracture of patella, right, with delayed healing, subsequent encounter Complex tear of medial meniscus of right knee as current injury Complex tear of medial meniscus of left knee as current injury Goiter Breast pain, right Cataract of right eye Diplopia Esotropia Hypertropia of right eye Skin lesion of breast Edema Intermittent claudication (HCC) Iron deficiency anemia Peripheral vascular disease (HCC) Pain due to total right knee replacement (CMS/HCC) (HCC) Hamstring tendinitis of right thigh Quadriceps weakness Idiopathic peripheral neuropathy Abnormality of gait and mobility Hx of total knee replacement, right Neuropathy (CMS/HCC) 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 Biceps tendinitis of left upper extremity Tear of left glenoid labrum Coffee ground emesis Upper GI bleed Acquired hypothyroidism Acute blood loss anemia Lung nodule Nocturnal cough Hiatal hernia Infrarenal abdominal aortic aneurysm (AAA) without rupture (HCC) Acute CVA (cerebrovascular accident) (HCC) Moderate malnutrition (CMS/HCC) Past Medical History: Diagnosis Date Acute gastric [...] delayed healing, subsequent encounter Clotting disorder (CMS/HCC) ([facility]) Complex tear of medial meniscus of left knee as current injury Complex tear of medial meniscus of right knee as current injury Cramps of lower extremity Diverticulitis of colon Easy bruisability Fatigue Frequent urination Gastroesophageal reflux disease GERD Hypothyroidism Incontinence of urine Muscle weakness Osteoarthritis Osteoarthritis Peptic ulcer Peptic ulcer disease Seizures ([facility]) 1997 last seizure in 1997 SOB (shortness of breath) on exertion Subchondral insufficiency fracture of condyle of left femur (CMS/[facility]) ([facility]) Vertigo Vision changes Visual disturbance hx of double vision, corrective lenses Past Surgical History: Procedure Laterality Date CATARACT EXTRACTION, BILATERAL Bilateral 2018 HERNIA REPAIR 1980 Hiatal Hernia repair KNEE ARTHROSCOPY Bilateral THYROIDECTOMY 12/27/2019 Precautions (Including Weight-Bearing): Fall risk and Bed / chair alarm SUBJECTIVE: I get so tired when I have to bend over Therapy Pain: Pre-therapy pain level: 7 / 10 Pain location: left elbow with movement Pain intervention(s): Pain medication administered prior to session Post-therapy pain level: 0 / 10 Pain scale used: 0-10 SCALE OBJECTIVE: APPEARANCE: Presentation upon OT arrival: Patient Sitting in bedside recliner Presentation upon OT departure: PATIENT Sitting in manual wheelchair with staff assistance Bed / chair alarm in place and activated upon OT departure: Yes Call light within arms reach of patient at end of session: No - due to patient taken to physical therapy gym Completed patient handoff and notified Physical Therapist / Physical Therapist Human Resources Clerk, name: Marcia, of patient's location and functional status upon completion of session. VITAL SIGNS: Vitals stable throughout session. No signs or symptoms of adverse reactions COGNITIVE / PERCEPTUAL: Pt alert and oriented x 4. Follows 100% 1 step commands SELF CARE: Shower / Bathe Self Type of bathing: bathing in wet walk-in shower Location of shower / bathe self: Sitting on fold-down shower bench Tasks completed: all components Components that required assistance (if applicable): bathing right arm, bathing buttocks, bathing left lower leg, including foot, and bathing right lower leg, including foot Overall assist level: Substantial / maximal assistance: More than half (50% - 99%) Adaptive equipment (if applicable): handheld shower nozzle Additional documentation: MAX assist overall. Patient utilizes side leaning technique for buttock component. Oral Hygiene Location of oral hygiene: Sitting in manual wheelchair Overall assist level: Supervision assistance / verbal cue(s) Additional documentation: Patient required MIN verbal cues to place towel on lap to apply toothpaste to toothbrush. Other Grooming Tasks Location of other grooming tasks: Sitting in manual wheelchair Tasks completed: APPLYING DEODORANT and combing hair. Overall assist level: Partial / moderate assistance: Less than half (1% - 49%) Additional documentation: MIN assist to apply hair product to hand. UE Dressing Location of UE dressing: Sitting in manual wheelchair Tasks completed: Pullover shirt Overall assist level: Partial / moderate assistance: Less than half (1% - 49%) Additional documentation: MIN assist to straighten shirt over shoulders and insert left UE into long sleeve shirt. LE Dressing (Underwear / Pants) Location of LE dressing (Underwear / Pants): Sitting in manual wheelchair and Standing at grab bars Tasks completed: Elastic waist pants and Incontinence briefs as underwear Overall assist level: Partial / moderate assistance: Less than half (1% - 49%) Additional documentation: MOD assist overall. Pt required MOD assist to insert LEs into pants and don over hips while pt stood at grab bars. Putting On / Taking Off Footwear Location of putting on / taking off footwear: Sitting in manual wheelchair Tasks completed: Sock(s) and Slip-on shoe(s) Overall assist level: Substantial / maximal assistance: More than half (50% - 99%) Additional documentation: Pt required MAX assist to don socks and left shoe. Pt donned right show with MIN assist and use of show horn. MOBILITY: Tub / shower transfer Location: WALK-IN SHOWER Overall assist level: Partial / moderate assistance: Less than half (1% - 49%) Device: GRAB BARS Additional documentation: w/c to and from fold down shower bench using grab bars with MIN assist for steadying Transfers: Bedside recliner to w/c using no device with MIN assist for steadying . HEARING / SPEECH / VISION: Expression of ideas and wants Overall assist level: WITHOUT DIFFICULTY Understanding verbal and non-verbal content Overall assist level: UNDERSTANDS Caregiver present (yes / no): No Education & training provided: Role of OT, OT plan of care, ADL training, Rasheed / One-handed techniques, Functional transfer training, Balance training, and Safety education ASSESSMENT: Activity tolerance / response to OT: GOOD PARTICIPATION, GOOD MOTIVATION, and RECEPTIVE TO EDUCATION / TRAINING Progress towards goals: Please refer to Care Plan from this date for progress towards individual goals. PLAN: Therapy Plan: Please refer to most recent Inpatient Rehabilitation Team Conference note for discharge plan, including location, recommended level of supervision, and arrangements. Frequency of therapy: BID SESSIONS 5 DAYS / WEEK TO ADDRESS PREVIOUSLY ESTABLISHED DEFICITS AND GOALS Sravani Helms, OT 12/29/23 * Kay Aviles, DIRECTOR OF RECRUITING - 12/28/2023 3:37 PM CDT Physical Therapy PT PROGRESS NOTE Gunjan Gtz Jr. 78 y.o. 1945 Past Medical History: Diagnosis Date Acute gastric [...] delayed healing, subsequent encounter Clotting disorder (CMS/HCC) ([facility]) Complex tear of medial meniscus of left knee as current injury Complex tear of medial meniscus of right knee as current injury Cramps of lower extremity Diverticulitis of colon Easy bruisability Fatigue Frequent urination Gastroesophageal reflux disease GERD Hypothyroidism Incontinence of urine Muscle weakness Osteoarthritis Osteoarthritis Peptic ulcer Peptic ulcer disease Seizures (HCC) 1997 last seizure in 1997 SOB (shortness of breath) on exertion Subchondral insufficiency fracture of condyle of left femur (CMS/HCC) ([facility]) Vertigo Vision changes Visual disturbance hx of double vision, corrective lenses Past Surgical History: Procedure Laterality Date CATARACT EXTRACTION, BILATERAL Bilateral 2018 HERNIA REPAIR 1980 Hiatal Hernia repair KNEE ARTHROSCOPY Bilateral THYROIDECTOMY 12/27/2019 Patient Active Problem List Diagnosis Primary osteoarthritis of both knees Subchondral insufficiency fracture of condyle of left femur (CMS/HCC) (HCC) Closed fracture of left tibial plateau with delayed healing Closed fracture of right tibial plateau with delayed healing Closed nondisplaced osteochondral fracture of left patella with delayed healing Closed osteochondral fracture of patella, right, with delayed healing, subsequent encounter Complex tear of medial meniscus of right knee as current injury Complex tear of medial meniscus of left knee as current injury Goiter Breast pain, right Cataract of right eye Diplopia Esotropia Hypertropia of right eye Skin lesion of breast Edema Intermittent claudication (HCC) Iron deficiency anemia Peripheral vascular disease (HCC) Pain due to total right knee replacement (CMS/HCC) (HCC) Hamstring tendinitis of right thigh Quadriceps weakness Idiopathic peripheral neuropathy Abnormality of gait and mobility Hx of total knee replacement, right Neuropathy (CMS/HCC) 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 Biceps tendinitis of left upper extremity Tear of left glenoid labrum Coffee ground emesis Upper GI bleed Acquired hypothyroidism Acute blood loss anemia Lung nodule Nocturnal cough Hiatal hernia Infrarenal abdominal aortic aneurysm (AAA) without rupture (HCC) Acute CVA (cerebrovascular accident) (HCC) Moderate malnutrition (CMS/HCC) TIME IN: 14:40 TIME OUT: 15:25 SUBJECTIVE Patient stated he was good MENTAL STATUS/ORIENTATION: Alert and oriented x4 PAIN: Pre-therapy pain level: 0/10 Pain location: n/a Pain intervention: none needed at this time Post-therapy pain level/response to intervention: 0/10 OBJECTIVE PRECAUTIONS: fall risk APPEARANCE/POSTURE: patient sitting in wheelchair, alarm in place, call button in reach. MOBILITY DOCUMENTATION: Sit to and from stand with CG/Min assist with cues for hand placement and safety. Patient with one sit to stand attempt with heavy left lean and patient unable to come upright. Patient encouraged to sit down and try again versus allowing therapist to correct posture/balance. Transfers wheelchair to recliner chair stand pivot transfer with min assist, left CHEMISTRY SPECIALIST. Ambulates with rasheed-aid 28'x1, 34'x1 min assist with deviations as in a.m. Patient with decreased left foot clearance with fatigue. TREATMENT: Performed repeated transfers from wheelchair to standard chair with arms using LBQC and min assist.Performed going to left and right sides. Performed both directions 2x. Wheelchair propulsion straight planes and turns 45'x2 using right UE and KATELIN LE, occasional cueing needed to not drag left foot. Sitting LE ex's x10 reps supervision assist. Patient performed hip flexion and LAQ's with encouragement to complete full ROM. Appearance/Posture at end of treatment session: patient sitting in recliner chair, alarm in place, call button in reach. EDUCATION: PATIENT/FAMILY EDUCATION: patient educated on gait, transfers, balance, and safety Response to Education: needs reinforcement ASSESSMENT Activity tolerance/response to PT: patient demonstrates increased fatigue with all activities. Barriers to learning: Physical Barriers to discharge: Limited family support, Limited safety awareness, Decreased endurance, Upperextremity weakness, and Lower extremity weakness Patient continues progressing toward previously set goals which remain appropriate at this time. PLAN Patient to be seen bid 5x/week to address previously established deficits and goals. * Rosalia Marinelli, OLGA - 12/28/2023 3:28 PM CDT Occupational Therapy NOTE / SESSION TYPE: OT ROUNDS UPDATE PATIENT'S NAME: Gunjan Gtz Jr. AGE / SEX: 78 y.o. / male ROOM: [place] [id number] : 1945 DATE: 12/28/23 Multi-Disciplinary Problems (from Occupational Therapy) Active Problems Problem[place] [facility] [place]: 12/16/23 Goal Start Date Expected End Date End Date [facility] 1 12/16/23 12/23/23 -- Goal Details: Patient will complete basic ADL routine including: bathing in shower, LE dressing, footwear, UB dressing, and grooming tasks with min assist and appropriate compensatory strategies. Goal Start Date Expected End Date End Date [facility] 2 12/16/23 12/23/23 -- Goal Details: Patient will complete simulated car transfer using appropriate device with min assist Goal Start Date Expected End Date End Date [facility] 3 12/16/23 12/23/23 -- Goal Details: Patient will complete toileting and toilet transfer with min assist and appropriate device. Goal Start Date Expected End Date End Date [facility] 4 12/16/23 12/23/23 -- Goal Details: Patient will complete functional/meaningful task in standing for 3-5 minutes with minassist for balance one time. Goal Start Date Expected End Date End Date OT [facility]/16/23 12/23/23 -- Goal Details: Patient will complete HEP (LUE SROM/RUE AROM) to improve BUE ROM/strength/endurance and ADL participation with min verbal cues 1 time. Goal Start Date Expected End Date End Date OT [facility] 6 12/16/23 12/23/23 -- Goal Details: Patient family/caregiver will attend one OT session and be aware of discharge needs/plans Goal Start Date Expected End Date End Date OT [facility] 7 12/16/23 12/23/23 -- Goal Details: Patient will complete medication management for 2-3 prescriptions with 100% accuracy and no additional cues one time. CURRENT FUNCTIONAL STATUS: Mr. Gtz is making good progress in therapy. They demonstrate good participation and good motivation working towards therapy goals. They are currently completing bathing in shower with max assist. They are min assist for UE dressing utilizing rasheed technique. They are modassist for LE dressing with max assist for standing components. They are completing footwear with max assist. They are currently completing oral care/grooming tasks in sitting with SPV-min assist. They are receptive to education and training. They are using compensatory strategies/adaptive equipment including rasheed techniques during ADLs. They are using rasheed aide for functional transfers and need mod assist for standard toilet and min assist for stand pivot transfers. They need max assist for toileting. All goals have not been addressed due to family training has not been completed yet. They are expected to continue to progress in therapy. They will benefit from continued skilled occupational therapy to work on adaptive ADL strategies, balance, functional transfers, and UE ROM/strength to increase independence with daily occupations and lower the burden of care on family/caregivers. STRENGTHS: MOTIVATED, GOOD FAMILY / SOCIAL SUPPORT, ABLE TO TOLERATE INPATIENT REHAB, GOOD PREMORBID FUNCTIONAL STATUS, GOOD PREMORBID MEDICAL STATUS, and LIVING IN THE COMMUNITY PREMORBIDLY BARRIERS: DECREASED ACTIVITY TOLERANCE, DECREASED UE ROM / STRENGTH / COORDINATION, DECREASED MOBILITY, DECREASED BALANCE, and DECREASED VISUAL PERCEPTUAL SKILLS OVERCOMING BARRIERS: ADL/IADL training, functional transfer training, caregiver training PRN, UE HEP, endurance training, AE/durable medical equipment training EQUIPMENT RECOMMENDED FOR DISCHARGE: TOILET GRAB BARS, SHOWER CHAIR, and SHOWER GRAB BARS Rosalia Marinelli, OT 12/28/23 3:29 PM . * Paresh Prieto, NUMEROLOGIST - 12/28/2023 3:03 PM CDT SPEECH LANGUAGE PATHOLOGY PROGRESS NOTE Patient's Name: Gunjan Gtz Jr. : 1945 Age: 78 y.o. Time In: 13:06 Time Out: 13:30 Patient Active Problem List Diagnosis Primary osteoarthritis of both knees Subchondral insufficiency fracture of condyle of left femur (CMS/HCC) (HCC) Closed fracture of left tibial plateau with delayed healing Closed fracture of right tibial plateau with delayed healing Closed nondisplaced osteochondral fracture of left patella with delayed healing Closed osteochondral fracture of patella, right, with delayed healing, subsequent encounter Complex tear of medial meniscus of right knee as current injury Complex tear of medial meniscus of left knee as current injury Goiter Breast pain, right Cataract of right eye Diplopia Esotropia Hypertropia of right eye Skin lesion of breast Edema Intermittent claudication (HCC) Iron deficiency anemia Peripheral vascular disease (HCC) Pain due to total right knee replacement (CMS/HCC) (HCC) Hamstring tendinitis of right thigh Quadriceps weakness Idiopathic peripheral neuropathy Abnormality of gait and mobility Hx of total knee replacement, right Neuropathy (CMS/HCC) 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 Biceps tendinitis of left upper extremity Tear of left glenoid labrum Coffee ground emesis Upper GI bleed Acquired hypothyroidism Acute blood loss anemia Lung nodule Nocturnal cough Hiatal hernia Infrarenal abdominal aortic aneurysm (AAA) without rupture (HCC) Acute CVA (cerebrovascular accident) (HCC) Moderate malnutrition (CMS/HCC) Past Medical History: Diagnosis Date Acute gastric [...] delayed healing, subsequent encounter Clotting disorder (CMS/HCC) (HCC) Complex tear of medial meniscus of left knee as current injury Complex tear of medial meniscus of right knee as current injury Cramps of lower extremity Diverticulitis of colon Easy bruisability Fatigue Frequent urination Gastroesophageal reflux disease GERD Hypothyroidism Incontinence of urine Muscle weakness Osteoarthritis Osteoarthritis Peptic ulcer Peptic ulcer disease Seizures (HCC) 1997 last seizure in 1997 SOB (shortness of breath) on exertion Subchondral insufficiency fracture of condyle of left femur (CMS/HCC) ([facility]) Vertigo Vision changes Visual disturbance hx of double vision, corrective lenses Past Surgical History: Procedure Laterality Date CATARACT EXTRACTION, BILATERAL Bilateral 2018 HERNIA REPAIR 1979 Hiatal Hernia repair KNEE ARTHROSCOPY Bilateral THYROIDECTOMY 12/27/2019 SUBJECTIVE MENTAL STATUS: Patient awake, sitting up in wheelchair. PAIN: Pre Therapy Pain Level: 0/10 Pain Location: N/A Pain Intervention: N/A Post Therapy Pain Level/Response to Intervention: 0/10 OBJECTIVE PRECAUTIONS: Fall SWALLOWING: Patient continues to tolerate regular consistency diet/thin liquids COGNITION: Decreased memory and thought organization COMMUNICATION: Dysarthric speech TREATMENT ACTIVITIES: Recall daily activities/recent events with 85% accuracy Spontaneous sentences with 100% intelligibility Insight into deficits with 80% accuracy Sequence steps to functional tasks with 100% accuracy EDUCATION: PATIENT/FAMILY EDUCATION: Reviewed team conference scheduled for tomorrow Response to Education: Understanding verbalized ASSESSMENT Activity Tolerance/Response to S.T.: Tolerated speech therapy session with no complaints Barriers to learning: Cognition, Vision Current status: Patient reports improvement in visual impairments. Increased attention to left visual field noted. Progress toward goals: Patient continues to progress toward previously set goals which remain appropriate at this time. PLAN Multi-Disciplinary Problems (from Speech Therapy) Active Problems Problem: [facility] Start Date: 12/16/23 Goal Start Date Expected End Date End Date [facility] 1 12/16/23 12/23/23 -- Goal Details: Patient to perform short term memory tasks using compensatory strategies with 80% accuracy. Goal Start Date Expected End Date End Date [facility] 2 12/16/23 12/23/23 -- Goal Details: Patient to perform functional problem solving/reasoning tasks with 80% accuracy. Goal Start Date Expected End Date End Date [facility] 3 12/16/23 12/23/23 -- Goal Details: Patient to attend to left visual field 80% of the time given 2-3 verbal prompts. Goal Start Date Expected End Date End Date [facility] 4 12/16/23 12/23/23 -- Goal Details: Patient's speech to be 90% intelligible during conversational tasks utilizing compensatory strategies. Frequency of Treatment: BID, 5xs weekly Recommendations: Recommend home with 24 hour supervision at discharge If this is the last note, consider this the discharge summary. * Rosalia Marinelli, OT - 12/28/2023 1:30 PM CDT Occupational Therapy NOTE TYPE: OT TREATMENT ([facility] DEPARTMENT SESSION) PATIENT'S NAME: Gunjan Gtz Jr. AGE / SEX: 78 y.o. / male ROOM: [place] [id number] : 1945 DATE: 12/28/23 TIME IN: 0 TIME OUT: 1415 Patient Active Problem List Diagnosis Primary osteoarthritis of both knees Subchondral insufficiency fracture of condyle of left femur (CMS/HCC) (HCC) Closed fracture of left tibial plateau with delayed healing Closed fracture of right tibial plateau with delayed healing Closed nondisplaced osteochondral fracture of left patella with delayed healing Closed osteochondral fracture of patella, right, with delayed healing, subsequent encounter Complex tear of medial meniscus of right knee as current injury Complex tear of medial meniscus of left knee as current injury Goiter Breast pain, right Cataract of right eye Diplopia Esotropia Hypertropia of right eye Skin lesion of breast Edema Intermittent claudication (HCC) Iron deficiency anemia Peripheral vascular disease (HCC) Pain due to total right knee replacement (CMS/HCC) (HCC) Hamstring tendinitis of right thigh Quadriceps weakness Idiopathic peripheral neuropathy Abnormality of gait and mobility Hx of total knee replacement, right Neuropathy (CMS/HCC) 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 Biceps tendinitis of left upper extremity Tear of left glenoid labrum Coffee ground emesis Upper GI bleed Acquired hypothyroidism Acute blood loss anemia Lung nodule Nocturnal cough Hiatal hernia Infrarenal abdominal aortic aneurysm (AAA) without rupture (HCC) Acute CVA (cerebrovascular accident) (HCC) Moderate malnutrition (CMS/HCC) Past Medical History: Diagnosis Date Acute gastric [...] with delayed healing, subsequent encounter Clotting disorder ([facility]) ([facility]) Complex tear of medial meniscus of left knee as current injury Complex tear of medial meniscus of right knee as current injury Cramps of lower extremity Diverticulitis of colon Easy bruisability Fatigue Frequent urination Gastroesophageal reflux disease GERD Hypothyroidism Incontinence of urine Muscle weakness Osteoarthritis Osteoarthritis Peptic ulcer Peptic ulcer disease Seizures ([facility]) 1997 last seizure in 1997 SOB (shortness of breath) on exertion Subchondral insufficiency fracture of condyle of left femur (CMS/[facility]) ([facility]) Vertigo Vision changes Visual disturbance hx of double vision, corrective lenses Past Surgical History: Procedure Laterality Date CATARACT EXTRACTION, BILATERAL Bilateral 2018 HERNIA REPAIR 1979 Hiatal Hernia repair KNEE ARTHROSCOPY Bilateral THYROIDECTOMY 12/27/2019 PRECAUTIONS (INCLUDING WEIGHT-BEARING): Fall risk and Bed / chair alarm SUBJECTIVE: I want to work on my arm THERAPY PAIN: PRE-THERAPY PAIN LEVEL: 0 / 10 PAIN LOCATION: No pain - Location N/A PAIN INTERVENTION(S): No pain - Intervention N/A POST-THERAPY PAIN LEVEL: 0 / 10 PAIN SCALE USED: 0-10 SCALE OBJECTIVE: APPEARANCE: PRESENTATION UPON OT ARRIVAL: PATIENT Sitting in manual wheelchair at bedside PRESENTATION UPON OT DEPARTURE: PATIENT Sitting in manual wheelchair at bedside BED / CHAIR ALARM IN PLACE AND ACTIVATED UPON OT DEPARTURE: Yes CALL LIGHT WITHIN ARMS REACH OF PATIENT AT END OF SESSION: Yes COMPLETED PATIENT HANDOFF AND NOTIFIED Physical Therapist / Physical Therapist Human Resources Clerk, NAME: Shannan, OF PATIENT'S LOCATION AND FUNCTIONAL STATUS UPON COMPLETION OF SESSION COGNITIVE / PERCEPTUAL: Alert and oriented to conversation MOBILITY: CAR TRANSFER LOCATION: CAR SIMULATOR SET AT HEIGHT OF 16 INCHES PER PATIENT'S HOME VEHICLE OVERALL ASSIST LEVEL: Partial / moderate assistance: Less than half (1% - 49%) DEVICE: RASHEED CANE ADDITIONAL DOCUMENTATION: MIN assist overall. Required assist for sit <> stand from car simulator and assist to bring LLE into car. LIVING SKILLS: ACTIVITIES: E-stim for muscle re-education (OVERALL ASSIST LEVEL): hand over hand LOCATION: seated ACTIVITY DESCRIPTION: Patient participated in E-stim activity for wrist/hand muscle re-education with the following settings: Wavelength: VMS , with cycle time of 4/12, ramp at 2 seconds, with amplitude at 23 mA CC. Patient demonstrated good tolerance for activity. Patient participated in activity for 15 minutes. Min verbal cues required to maintain attention to task completion CAREGIVER PRESENT (YES / NO): No EDUCATION & TRAINING PROVIDED: Role of OT, OT plan of care, and Functional transfer training ASSESSMENT: ACTIVITY TOLERANCE / RESPONSE TO OT: GOOD PARTICIPATION, GOOD MOTIVATION, and RECEPTIVE TO EDUCATION / TRAINING PROGRESS TOWARDS GOALS: PLEASE REFER TO CARE PLAN FROM THIS DATE FOR PROGRESS TOWARDS INDIVIDUAL GOALS PLAN: PLEASE REFER TO MOST RECENT INPATIENT REHABILITATION TEAM CONFERENCE NOTE FOR DISCHARGE PLAN, INCLUDING LOCATION, RECOMMENDED LEVEL OF SUPERVISION AND ARRANGEMENTS. FREQUENCY OF THERAPY: BID SESSIONS 5 DAYS / WEEK TO ADDRESS PREVIOUSLY ESTABLISHED DEFICITS AND GOALS Rosalia Marinelli OT 12/28/23 * Kyra Larose - 12/28/2023 12:54 PM CDT NUTRITION ASSESSMENT Nutrition Status: Patient meets criteria for moderate social/environmental malnutrition, reference ASPEN guidelines. Present on Admission: No REASON FOR ASSESSMENT: Follow Up Encounter Date: 12/28/23 1:02 PM Admission Date: 12/15/2023 LOS: 13 days HPI: Patient is a 78 y.o. male with history of GERD, PVD presented to [facility] on 12/07 with sudden left sided weakness. CTH negative. CTA no LVO. He was given tPA. Neurology consulted. 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 Noted to have coffee ground emesis, lovenoxand aspirin held and patient started on IV protonix. No further episodes and aspirin resumed. FOBT negative. Therapy recommending acute rehab prior to return home. 12/08: Ordering Ensure High PRO bid for additional calorie/protein intake. 12/12: Modify ONS Ensure high protein to vanilla flavor only. PO intakes averaging 64%. Malnutrition assessment complete. 12/15: Modify diet to regular to promote PO intakes. Continue Ensure HP vanilla bid. PO intakes avg 40%. Malnutrition re-assessment completed. 12/20: Continue regular diet and Ensure HP vanilla bid. PO intakes avg 57%. Objective Past Medical History: Diagnosis Date Acute gastric [...] with delayed healing, subsequent encounter Clotting disorder ([facility]) ([facility]) Complex tear of medial meniscus of left knee as current injury Complex tear of medial meniscus of right knee as current injury Cramps of lower extremity Diverticulitis of colon Easy bruisability Fatigue Frequent urination Gastroesophageal reflux disease GERD Hypothyroidism Incontinence of urine Muscle weakness Osteoarthritis Osteoarthritis Peptic ulcer Peptic ulcer disease Seizures ([facility]) 1997 last seizure in 1997 SOB (shortness of breath) on exertion Subchondral insufficiency fracture of condyle of left femur (CMS/[facility]) ([facility]) Vertigo Vision changes Visual disturbance hx of double vision, corrective lenses Past Surgical History: Procedure Laterality Date CATARACT EXTRACTION, BILATERAL Bilateral 2018 HERNIA REPAIR 1979 Hiatal Hernia repair KNEE ARTHROSCOPY Bilateral THYROIDECTOMY 12/27/2019 Social History Tobacco Use Smoking status: Former Current packs/day: 0.00 Types: Cigarettes Start date: 1965 Quit date: 1966 Years since quittin.2 Smokeless tobacco: Never Substance and Sexual Activity Drug use: Yes Types: Alcohol Sexual activity: Defer Alcohol Use: Not At Risk (12/16/2023) AUDIT-C Frequency of Alcohol Consumption: Monthly or less Average Number of Drinks: 1 or 2 Frequency of Binge Drinking: Less than monthly MEDICATION/LAB REVIEW: Scheduled Meds: aspirin, 81 mg, oral, Daily cetirizine, 10 mg, oral, Daily donepeziL, 10 mg, oral, Nightly enoxaparin, 40 mg, subcutaneous, Daily-2100 fluticasone furoate-vilanteroL, 1 puff, inhalation, Daily (RT) fluticasone propionate, 1 spray, each nostril, BID gabapentin, 300 mg, oral, TID guaiFENesin ER, 600 mg, oral, BID levothyroxine, 150 mcg, oral, Daily - 0600 lidocaine, 1 patch, transdermal, Q24H pantoprazole DR, 40 mg, oral, BID polyethylene glycol, 17 g, oral, Daily rosuvastatin, 40 mg, oral, Daily tamsulosin, 0.4 mg, oral, Nightly Continuous Infusions: PRN Meds: acetaminophen albuterol HFA calcium carbonate ofloxacin ondansetron ramelteon senna-docusate simethicone tiZANidine traMADoL Recent Labs Lab Units 12/27/23 0438 SODIUM mmol/L 141 POTASSIUM PLASMA mmol/L 4.2 CHLORIDE mmol/L 107 CO2 mmol/L 26 BUN SERUM mg/dL 18 CREATININE mg/dL 1.30 [id number] mL/min/1.73 m2 56 CALCIUM mg/dL 8.9 ALBUMIN g/dL 3.2* Recent Labs Lab Units 12/27/23 0438 GLUCOSE mg/dL 107 ALT Date Value Ref Range Status 12/27/2023 22 7 - 55 Units/L Final AST Date Value Ref Range Status 12/27/2023 23 10 - 50 Units/L Final Alk phos Date Value Ref Range Status 12/27/2023 115 40 - 130 Units/L Final Lab Results Component Value Date HGBA1C 5.6 12/07/2023 HDL 55 12/08/2023 LDLCALC 110 12/08/2023 CHOL 182 12/08/2023 TRIG 86 12/08/2023 NURSING ASSESSMENT: Last BM Date: 12/28/23 Bowel Sounds (All Quadrants): Active Hood Scale Score: 17 Skin Integrity: Intact Vital Signs BP: 133/67 Temp: 36.4 ??C (97.5 ??F) Pulse: 56 Resp: 16 SpO2: 98 % Intake/Output Summary (Last 24 hours) at 12/28/2023 1302 Last data filed at 12/28/2023 1234 Gross per 24 hour Intake 1550 ml Output 400 ml Net 1150 ml Adult Malnutrition Scoring Tool (MST) What diet do you follow at home?: regular Have You Recently Lost Weight Without Trying?: No Have you been eating poorly because of a decreased appetite?: Yes Malnutrition Screening Tool (MST) Score: 1 Hunger Screen - Admission Within the past 12 months the food we bought just didn't last and we didn't have money to get more.: Never true Within the past 12 months we worried whether our food would run out before we got money to buy more.: Never true Within the past 12 months, you worried that your food would run out before you got the money to buymore.: Never true Within the past 12 months, the food you bought just didn't last and you didn't have money to get more.: Never true Anthropometrics Weight: 90.3 kg (199 lb) Admission Weight : 102.1 kg Weight Change: -5.13 kg (-11.31 lbs) IBW/kg (Calculated) : 75.3 kg Height: 177.8 cm (5' 10 ) Weight in (lb) to have BMI = 25: 173.9 BMI (Calculated): 28.6 BMI Classification: BMI 25.0 - 29.9 Overweight Wt Readings from Last 10 Encounters: 12/26/23 90.3 kg (199 lb) 12/14/23 103.4 kg (228 lb) 12/08/23 103.4 kg (227 lb 15.3 oz) 11/12/23 99.8 kg (220 lb) 11/03/23 99.8 kg (220 lb) 10/10/23 100.9 kg (222 lb 8 oz) 05/18/23 104.3 kg (230 lb) 05/04/23 104.3 kg (230 lb) 03/23/23 105.2 kg (232 lb) 12/03/22 105 kg (231 lb 7.7 oz) ESTIMATED NEEDS: Total Kcal/kg Estimated Needs : 2256.65 Kcal/k. Type of Weight Used for Estimated Kcals: Current Total Protein Estimated Needs (gm): 108.32 Protein Needs Based on g/k.2 Type of Weight Used forEstimated Protein : Current Total Fluid Estimated Needs: 2256.65 Fluid Needs Based on : 1 ml/kcal Type of Weight Used for Estimated Fluid Needs: Current Dietary Orders (From admission, onward) Start Ordered 12/16/23 1700 Oral Nutrition Supplements () Select Supplement: Ensure High Protein - Vanilla WithBreakfast and Dinner Comments: Vanilla ONLY Question: () Select Supplement: Answer: Ensure High Protein - Vanilla 12/16/23 0843 12/16/23 0844 Adult Diet Regular Diet effective now Question: () Diet type Answer: Regular 12/16/23 0843 Allergies: Reviewed. IMPRESSION: Pt seen while eating lunch. Reports appetite is improving. Documented intake avg 75% x 10 meals since last assessment. Reports drinking Ensure HP. Denies N/V/C/D or chew/swallow problems. GI WDL. Last BM 12/27. No edema. Skin intact. No edema. Malnutrition re-assessment. Overall Pt with inadequate intakes for 1 month since IP admit d/t dislike of hospital food and poor appetite. 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 Estimated Pt with intakes <75% of estimated needs for > 3 months. Wt hx reviewed noted 28 lb wt loss in 1 month (12%, significant per ASPEN guidelines). NFPE not appropriate at this time d/t Pt eating. Will perform as able. Pt now meets criteria for moderate malnutrition in the context of social/environmental circumstances. ASPEN MALNUTRITION ASSESSMENT: Date of completion: 12/28/23 ASPEN/AND Malnutrition Screening: Social/behavioral/environmental circumstances mild/moderate Energy Intake: < 75% energy intake compared to estimated energy needs > (or equal to) 3 months Weight Loss: 5% in 1 month Body Fat: (Unable to assess) Muscle Mass: (Unable to assess) Patient Meets Criteria for Moderate Malnutrition: Yes NUTRITION FOCUSED PHYSICAL EXAM: Completed. 12/13/23. Unable to re-assess at this time d/t Pt eating. Subcutaneous Fat Loss Orbital Region - Surrounding the Eye: Slightly bulged fat pads Cheek Region - Buccal Fat: Full, round filled-out cheeks Upper Arm Region - Triceps/Biceps: Some depth pinch but not ample Muscle Loss Sikhism Region - Temporalis Muscle: Slight depression Clavicle Bone Region - Pectoralis Major, Deltoid, Trapezius Muscles: Not visible in male, visible but not prominent in female Clavicle and Acromion Bone Region - Deltoid Muscle: Rounded, curves at arm/shoulder/neck Scapular Bone Region - Trapezius, Supraspinus, Infraspinus Muscles: Bones not prominent NUTRITION DIAGNOSIS: Nutrition Diagnosis 1: Protein-Calorie Malnutrition - Moderate Related to: Social/Behavioral/Environmental circumstances Evidenced by: Inadequate energy intake, Weight loss Nutrition Diagnosis 2: Increased nutrient needs (protein) Related to: Increased activity level Evidenced by: Comprehensive rehabilitation therapy INTERVENTION(S): Summary: Follow up per policy, Assess for nutrition changes, Encouragement Continue regular diet with Ensure HP vanilla bid. GOAL(S): Adequate nutrition to meet estimated needs by next assessment, Tolerance of medical food supplementby next assessment, Prevent further unintended weight loss during admission MONITORING/EVALUATION: Appetite, PO intake, Plan of care, Stool patterns, Weight changes, Discharge plans, Labs, Supplement tolerance, Food preferences Diet Instructions Recommend to eat a generally healthy diet with foods that include a variety of fruits, vegetables, whole-grain breads, low-fat dairy products, beans, lean meats, and fish. Limit fast food, sugary drinks, excess salt, and desserts. Limit sugary drinks like lemonade, regular soda, Gatorade, and sweettea and drink water throughout the day. Continue Ensure/Boost high calorie and protein supplements 1-2x/day if appetite is poor. Call [phone] to speak with a dietitian about any diet related concerns. Additional resources are available online from the Academy of [employer] and [employer]etics at www.eatright.org Nutrition Follow-Up : 01/04/24 Kyra Larose, MS, RD, LD * Becky Montana MD - 12/28/2023 11:16 AM CDT INPATIENT REHABILITATION DAILY PROGRESS NOTE CHIEF COMPLAINT: right posterior limb internal capsule infarct SUBJECTIVE: His cold is bothering him. States his elbow pain is still there. Better with heat. Notes more movement in left arm. OBJECTIVE: VITALS: Vitals: 12/27/23 0709 12/27/23 1958 12/28/23 0640 12/28/23 1000 BP: 131/68 133/67 BP Location: Right arm Right arm Patient Position: Sitting Sitting Pulse: 62 56 Resp: 17 16 Temp: 36.2 ??C (97.2 ??F) 36.4 ??C (97.5 ??F) TempSrc: Oral Oral SpO2: 96% 100% 97% 98% Weight: Height: PHYSICAL EXAM: General: no acute distress, in chair HEENT: normocephalic, trachea midline Heart: rrr Lungs: ctab GI: soft, nontender Neuro: awake, alert LABS/RADIOLOGY/DIAGNOSTIC REVIEW Recent Labs Lab Units 12/27/23 0438 WBC K/cumm 6.7 HEMOGLOBIN g/dL 12.8* HEMATOCRIT % 39.3 PLATELETS K/cumm 235 Recent Labs Lab Units 12/27/23 0438 SODIUM mmol/L 141 POTASSIUM PLASMA mmol/L 4.2 CHLORIDE mmol/L 107 CO2 mmol/L 26 ANIONGAP mmol/L 8 GLUCOSE mg/dL 107 BUN SERUM mg/dL 18 CREATININE mg/dL 1.30 CALCIUM mg/dL 8.9 ALBUMIN g/dL 3.2* ALK PHOS Units/L 115 ALT Units/L 22 AST Units/L 23 BILIRUBIN TOTAL mg/dL 0.5 Recent Labs Lab Units 12/27/23 0438 GLUCOSE mg/dL 107 OT Functional Mobility: 12/20 Functional transfers: MOD-MAX OT Self Care: 12/20 Bathing: MAX Grooming: MAX UB dress:MOD LB dress: MAX Footwear: MAX Toileting:TOTAL NUMEROLOGIST Cognition: Mild/moderate cognitive deficits in short-term memory, insight, and problem solving/reasoning. Left visual inattention. NUMEROLOGIST Communication: Mild dysarthria NUMEROLOGIST Swallowing: Tolerating regular diet with thin liquids PT Functional Mobility: 12/21/23: supine <> sit with MIN assist for L LE. Rolling toward L side with SBA. Sit <> stand to rasheed-aide with MOD to MIN assist. 12' gait with rasheed-aide and MOD assist. Stand pivot with rasheed-aide and MAX assist. W/C mobility 60'-75' with R LE and UE with SPV. No results found. MEDICATIONS: Current Facility-Administered Medications: acetaminophen (TYLENOL) tablet 650 mg, 650 mg, oral, Q6H PRN, Becky Montana MD, 650 mg at 12/28/23 0649 albuterol HFA (PROVENTIL HFA,VENTOLIN HFA,PROAIR HFA) 90 mcg/actuation inhaler 2 puff, 2 puff, inhalation, Q4H PRN (RT), Becky Montana MD aspirin chewable tablet 81 mg, 81 mg, oral, Daily, Becky Montana MD, 81 mg at 12/28/23 0806 calcium carbonate (TUMS) chewable tablet 1,000 mg, 400 mg of elemental calcium, oral, TID PRN, Becky Montana MD cetirizine (ZyrTEC) tablet 10 mg, 10 mg, oral, Daily, Becky Montana MD, 10 mg at 12/28/23 0806 donepeziL (ARICEPT) tablet 10 mg, 10 mg, oral, Nightly, Becky Montana MD, 10 mg at 12/27/232024 enoxaparin (LOVENOX) syringe 40 mg, 40 mg, subcutaneous, Daily-2100, Becky Rudd MD, 40 mg at 12/27/232025 fluticasone furoate-vilanteroL (BREO ELLIPTA) 100-25 mcg/dose inhaler 1 puff, 1 puff, inhalation, Daily (RT), Becky Montana MD, 1 puff at 12/28/23 1000 fluticasone propionate (FLONASE) 50 mcg/actuation nasal spray 1 spray, 1 spray, each nostril, BID, Becky Montana MD, 1 spray at 12/28/23 08 gabapentin (NEURONTIN) capsule 300 mg, 300 mg, oral, TID, Becky Montana MD, 300 mg at 12/28/23 0806 guaiFENesin ER (MUCINEX) extended release tablet 600 mg, 600 mg, oral, BID, Jl Montana MD, 600 mg at 12/28/23 0806 levothyroxine (SYNTHROID) tablet 150 mcg, 150 mcg, oral, Daily - 0600, Becky Rudd MD, 150 mcg at 12/28/23 0649 lidocaine (LIDODERM) 5 % patch 1 patch, 1 patch, transdermal, Q24H, Becky Rudd MD, 1 patch at 12/27/23 1235 ofloxacin (OCUFLOX) 0.3 % ophthalmic solution 1 drop, 1 drop, each eye, Daily PRN, Becky Montana MD ondansetron (ZOFRAN) tablet 4 mg, 4 mg, oral, TID PRN, Becky Montana MD pantoprazole DR (PROTONIX) extended release tablet 40 mg, 40 mg, oral, BID, Jl Montana MD, 40 mg at 12/28/23 0806 polyethylene glycol (MIRALAX) packet 17 g, 17 g, oral, Daily, Becky Montana MD, 17 gat 12/27/23 0834 ramelteon (ROZEREM) tablet 8 mg, 8 mg, oral, Nightly PRN, Becky Montana MD, 8 mg at 12/27/232025 rosuvastatin (CRESTOR) tablet 40 mg, 40 mg, oral, Daily, Becky Montana MD, 40 mg at 12/28/23 08 senna-docusate (PERICOLACE) 8.6-50 mg per tablet 1 tablet, 1 tablet, oral, BID PRN, Becky Montana MD, 1 tablet at 12/19/23 08 simethicone (MYLICON) chewable tablet 80 mg, 80 mg, oral, TID PRN, Becky Rudd MD tamsulosin (FLOMAX) extended release capsule 0.4 mg, 0.4 mg, oral, Nightly, Jl Montana MD, 0.4 mg at 12/27/232024 tiZANidine (ZANAFLEX) tablet 2 mg, 2 mg, oral, TID PRN, Becky Montana MD, 2 mg at 12/27/232025 traMADoL (ULTRAM) tablet 50 mg, 50 mg, oral, Q6H PRN, Becky Montana MD, 50 mg at 12/28/23 08 ASSESSMENT/PLAN: MEDICAL PLAN OF CARE: 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 Reviewed home medicine - on spironolactone 25mg and lasix 20mg 12/26: controlled 12/27: controlled HLD: continue rosuvastatin 40mg AAA: no current medications Hypothyroidism: continue levothyroxine 150mcg GERD: continue pantoprazole 40mg bid Alzheimer: continue donepezil 10mg qhs Depression: no current medications Asthma: continue breo ellipta 100-25 daily BPH: continue flomax 0.4mg qhs 12/23: reviewed home medications - on oxybutynin 15mg and gemtesa 75mg for overactive bladder - hold for now Neuropathy: continue gabapentin 300mg tid Pain: Start Tylenol 650mg q6h prn, oxycodone 5mg q4h prn 12/22: lidoderm patch, decrease frequency of oxycodone to q6h prn 12/23: reviewed home medications, dc oxycodone and start tramadol 50mg q6h pr: heat/ice prn to left elbow Bowels: Start miralax daily, pericolace bid prn, simethicone prn 12/16: dulcolax 10mg x1 Nausea: Start Zofran prn, Tums prn Congestion: start mucinex 600mg bid 12/23: start home cetirizine 10mg 12/26: start flonase bid Diet: Reg/Thin HH 2G Na DVT ppx: restart lovenox Precautions: Fall Weightbearing status: full Code: Full Code Care discussed with Nursing Reviewed vital signs, intake, bowel, and bladder - as above REHAB PLAN OF CARE: Patient's expected intensity and duration of participation in the interdisciplinary rehabilitation program and disciplines that comprise this team: Therapies required to achieve goals:The patient will benefit from integrated coordination of care from the following interdisciplinary services: Medical Supervision, 24 hours Rehabilitation Nursing, Physical Therapy, Occupational Therapy, Case Management; Social Work; Therapeutic Recreation; SpeechTherapy; Flatwork Feeder Frequency and duration of therapies expect to be:Expected intensity and frequency of participation in the interdisciplinary rehab program is: 3 hours per day except Wednesday. Expected intensity and frequency of Physical Therapy (PT): 1.5 hours per day over 5-7 days for the duration of length of stay Expected intensity and frequency of Occupational Therapy (OT): 1.5 hours per day over 5-7 days per week for the duration of length of stay Expected intensity and frequency of Speech Therapy (NUMEROLOGIST): 1 hour per day per day over 5-7 days per week for the duration of length of stay FUNCTIONAL CHANGE: DISCHARGE PLANNING: Expected Discharge Date: TBD Equipment: TBD Family Training: SW to set up Education: Follow up Appointments: PCP 1-2 weeks Becky Montana MD Physical Medicine and Rehabilitation I can be reached from 7am-7pm through [email or web address] chat. Hospitalist forest fire prevention manager from 7pm-7am * Traci Kay, DIRECTOR OF RECRUITING - 12/28/2023 11:00 AM CDT Physical Therapy PT PROGRESS NOTE Gunjan Gtz Jr. 78 y.o. 1945 Past Medical History: Diagnosis Date Acute gastric [...] delayed healing, subsequent encounter Clotting disorder (CMS/HCC) (HCC) Complex tear of medial meniscus of left knee as current injury Complex tear of medial meniscus of right knee as current injury Cramps of lower extremity Diverticulitis of colon Easy bruisability Fatigue Frequent urination Gastroesophageal reflux disease GERD Hypothyroidism Incontinence of urine Muscle weakness Osteoarthritis Osteoarthritis Peptic ulcer Peptic ulcer disease Seizures (HCC) 1997 last seizure in 1997 SOB (shortness of breath) on exertion Subchondral insufficiency fracture of condyle of left femur (CMS/HCC) (HCC) Vertigo Vision changes Visual disturbance hx of double vision, corrective lenses Past Surgical History: Procedure Laterality Date CATARACT EXTRACTION, BILATERAL Bilateral 2018 HERNIA REPAIR 1980 Hiatal Hernia repair KNEE ARTHROSCOPY Bilateral THYROIDECTOMY 12/27/2019 Patient Active Problem List Diagnosis Primary osteoarthritis of both knees Subchondral insufficiency fracture of condyle of left femur (CMS/HCC) (HCC) Closed fracture of left tibial plateau with delayed healing Closed fracture of right tibial plateau with delayed healing Closed nondisplaced osteochondral fracture of left patella with delayed healing Closed osteochondral fracture of patella, right, with delayed healing, subsequent encounter Complex tear of medial meniscus of right knee as current injury Complex tear of medial meniscus of left knee as current injury Goiter Breast pain, right Cataract of right eye Diplopia Esotropia Hypertropia of right eye Skin lesion of breast Edema Intermittent claudication (HCC) Iron deficiency anemia Peripheral vascular disease (HCC) Pain due to total right knee replacement (CMS/HCC) (HCC) Hamstring tendinitis of right thigh Quadriceps weakness Idiopathic peripheral neuropathy Abnormality of gait and mobility Hx of total knee replacement, right Neuropathy (CMS/HCC) 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 Biceps tendinitis of left upper extremity Tear of left glenoid labrum Coffee ground emesis Upper GI bleed Acquired hypothyroidism Acute blood loss anemia Lung nodule Nocturnal cough Hiatal hernia Infrarenal abdominal aortic aneurysm (AAA) without rupture (HCC) Acute CVA (cerebrovascular accident) (HCC) Moderate malnutrition (CMS/HCC) TIME IN: 11:00 TIME OUT: 11:45 SUBJECTIVE Patient stated he was o.k. MENTAL STATUS/ORIENTATION: Alert and oriented x4 PAIN: Pre-therapy pain level: 10 Pain location: left elbow Pain intervention: patient reports already receiving pain medicine Post-therapy pain level/response to intervention: 01/18 OBJECTIVE PRECAUTIONS: fall risk APPEARANCE/POSTURE: patient sitting in wheelchair, alarm in place, agreeable to therapy. MOBILITY DOCUMENTATION: Bed Mobility: sit to supine with min assist for left LE. Supine to sit with contact guard assist. Transfers: sit to stand with contact guard/min assist, stand to sit with contact guard assist with max verbal cues to complete turn before reaching for chair. Transfers wheelchair to recliner chair stand pivot transfer by holding onto chair with min assist. Ambulation: rasheed-aid 10'x1, 15'x1 with min assist. Patient with decreased gertrudis, step to gait pattern, decreased left heel strike and push off, narrow SHANA, downward gaze, slight flexed posture at hips, decreased left knee stability with fatigue. Stairs: one step performed 2x: ascending with one handrail and mod assist the first time and min assist the second time. Descending both times with min assist of 1 and CG assist of 1 with decreased left knee stability noted second time. Wheelchair management & propulsion: using right UE and LE 60'x1 and supervision assist with increased time. TREATMENT: Supine ex's x10 reps: Heel slides, hip abduction, quad sets, glut sets, SAQ's. Bridging x10 reps with min assist to hold feet in place Bent knee fallouts with green theraband x10 reps min assist Left unilateral bridging x10 reps with min assist. Appearance/Posture at end of treatment session: Patient sitting in recliner chair with alarm on andin place and call button in reach. EDUCATION: PATIENT/FAMILY EDUCATION: patent educated on gait, one step, and exercises. Response to Education: needs reinforcement ASSESSMENT Activity tolerance/response to PT: patient completes all activities with increased time and rest breaks. Barriers to learning: Physical Barriers to discharge: Pain, Limited family support, Limited safety awareness, Decreased endurance,Upper extremity weakness, and Lower extremity weakness Patient continues progressing toward previously set goals which remain appropriate at this time. PLAN Patient to be seen bid 5x/week to address previously established deficits and goals. * Rosalia Marinelli, OT - 12/28/2023 9:50 AM CDT Occupational Therapy NOTE TYPE: OT TREATMENT ([facility] BEDSIDE SESSION) Patient's Name: Gunjan Gtz Jr. Age / Sex: 78 y.o. / male Room: [place] [id number] : 1945 Date: 12/28/23 Time In: 0950 Time Out: 1050 Patient Active Problem List Diagnosis Primary osteoarthritis of both knees Subchondral insufficiency fracture of condyle of left femur (CMS/HCC) ([facility]) Closed fracture of left tibial plateau with delayed healing Closed fracture of right tibial plateau with delayed healing Closed nondisplaced osteochondral fracture of left patella with delayed healing Closed osteochondral fracture of patella, right, with delayed healing, subsequent encounter Complex tear of medial meniscus of right knee as current injury Complex tear of medial meniscus of left knee as current injury Goiter Breast pain, right Cataract of right eye Diplopia Esotropia Hypertropia of right eye Skin lesion of breast Edema Intermittent claudication ([facility]) Iron deficiency anemia Peripheral vascular disease ([facility]) Pain due to total right knee replacement (CMS/HCC) (HCC) Hamstring tendinitis of right thigh Quadriceps weakness Idiopathic peripheral neuropathy Abnormality of gait and mobility Hx of total knee replacement, right Neuropathy (CMS/HCC) 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 Biceps tendinitis of left upper extremity Tear of left glenoid labrum Coffee ground emesis Upper GI bleed Acquired hypothyroidism Acute blood loss anemia Lung nodule Nocturnal cough Hiatal hernia Infrarenal abdominal aortic aneurysm (AAA) without rupture ([facility]) Acute CVA (cerebrovascular accident) ([facility]) Moderate malnutrition (CMS/HCC) Past Medical History: Diagnosis Date Acute gastric ulcer without hemorrhage or perforation Ulcer, gastric, acute - (Added by TW Conv) Alzheimer's dementia ([facility]) Asthma Back pain Cataract Closed fracture of left tibial plateau with delayed healing Closed fracture of right tibial plateau with delayed healing Closed nondisplaced osteochondral fracture of left patella with delayed healing Closed osteochondral fracture of patella, right, with delayed healing, subsequent encounter Clotting disorder (CMS/HCC) ([facility]) Complex tear of medial meniscus of left knee as current injury Complex tear of medial meniscus of right knee as current injury Cramps of lower extremity Diverticulitis of colon Easy bruisability Fatigue Frequent urination Gastroesophageal reflux disease GERD Hypothyroidism Incontinence of urine Muscle weakness Osteoarthritis Osteoarthritis Peptic ulcer Peptic ulcer disease Seizures ([facility]) 1997 last seizure in 1997 SOB (shortness of breath) on exertion Subchondral insufficiency fracture of condyle of left femur (CMS/HCC) ([facility]) Vertigo Vision changes Visual disturbance hx of double vision, corrective lenses Past Surgical History: Procedure Laterality Date CATARACT EXTRACTION, BILATERAL Bilateral 2018 HERNIA REPAIR 1979 Hiatal Hernia repair KNEE ARTHROSCOPY Bilateral THYROIDECTOMY 12/27/2019 Precautions (Including Weight-Bearing): Fall risk and Bed / chair alarm SUBJECTIVE: I keep wanting to use my hand to pull on my pants Therapy Pain: Pre-therapy pain level: 4 / 10 Pain location: L elbow Pain intervention(s): Repositioned Post-therapy pain level: 0 / 10 Pain scale used: 0-10 SCALE OBJECTIVE: APPEARANCE: Presentation upon OT arrival: Patient Sitting in bedside recliner Presentation upon OT departure: PATIENT Sitting in manual wheelchair with staff assistance Bed / chair alarm in place and activated upon OT departure: Yes Call light within arms reach of patient at end of session: No - due to patient taken to physical therapy gym Completed patient handoff and notified Physical Therapist / Physical Therapist Human Resources Clerk, name: Shannan, of patient's location and functional status upon completion of session. COGNITIVE / PERCEPTUAL: Alert and oriented to conversation SELF CARE: Shower / Bathe Self Type of bathing: bathing in wet walk-in shower Location of shower / bathe self: Sitting on tub transfer bench Tasks completed: all components Components that required assistance (if applicable): MAX ASSIST RIGHT ARM, MAX ASSIST BUTTOCK, MAX ASSIST LEFT LOWER LEG, INCLUDING FOOT, and MAX ASSIST RIGHT LOWER LEG, INCLUDING FOOT Overall assist level: Substantial / maximal assistance: More than half (50% - 99%) Adaptive equipment (if applicable): handheld shower nozzle Additional documentation: MAX assist overall. Patient utilizes side to side leaning technique for buttock component Oral Hygiene Location of oral hygiene: Sitting in manual wheelchair Overall assist level: Supervision assistance / verbal cue(s) Additional documentation: Patient educated on adaptive technique of placing towel on lap and resting toothbrush in towel in order to apply toothpaste Other Grooming Tasks Location of other grooming tasks: Sitting in manual wheelchair Tasks completed: COMBING HAIR and APPLYING DEODORANT Overall assist level: Partial / moderate assistance: Less than half (1% - 49%) Additional documentation: Min assist overall. Required assist to apply hair product to R hand. SPV to apply spray on deodorant UE Dressing Location of UE dressing: Sitting in manual wheelchair Tasks completed: sweatshirt and Undershirt Overall assist level: Partial / moderate assistance: Less than half (1% - 49%) Additional documentation: Min assist to straighten shoulders of sweatshirt. SPV to don undershirt using rasheed technique LE Dressing (Underwear / Pants) Location of LE dressing (Underwear / Pants): Sitting in manual wheelchair and Standing at grab bar Tasks completed: Elastic waist pants and Incontinence briefs as underwear Overall assist level: Partial / moderate assistance: Less than half (1% - 49%) Additional documentation: MOD assist overall. Min assist to thread brief/pants over LLE. SPV to thread brief/pants over RLE. Max assist to complete hip components in standing Putting On / Taking Off Footwear Location of putting on / taking off footwear: Sitting in manual wheelchair Tasks completed: Sock(s) and Slip-on shoe(s) Overall assist level: Substantial / maximal assistance: More than half (50% - 99%) Additional documentation: MAX assist overall. Patient required max assist to don bilateral socks. Max assist to don L slip on shoe. Min assist to don R slip on shoe MOBILITY: Tub / shower transfer Location: WALK-IN SHOWER Overall assist level: Partial / moderate assistance: Less than half (1% - 49%) Device: GRAB BARS Additional documentation: MIN assist for stand pivot w/c <> tub transfer bench using grab bar Transfers: Min assist for stand pivot recliner to w/c using rasheed aide CGA for sit <> stand at grab bar HEARING / SPEECH / VISION: Expression of ideas and wants Overall assist level: WITHOUT DIFFICULTY Understanding verbal and non-verbal content Overall assist level: UNDERSTANDS Caregiver present (yes / no): No Education & training provided: Role of OT, OT plan of care, ADL training, Rasheed / One-handed techniques, Functional transfer training, Balance training, and Safety education ASSESSMENT: Activity tolerance / response to OT: GOOD PARTICIPATION, GOOD MOTIVATION, and RECEPTIVE TO EDUCATION / TRAINING Progress towards goals: Please refer to Care Plan from this date for progress towards individual goals. PLAN: Therapy Plan: Please refer to most recent Inpatient Rehabilitation Team Conference note for discharge plan, including location, recommended level of supervision, and arrangements. Frequency of therapy: BID SESSIONS 5 DAYS / WEEK TO ADDRESS PREVIOUSLY ESTABLISHED DEFICITS AND GOALS Rosalia Marinelli OT 12/28/23 * Ella Carter, MONA - 12/28/2023 9:04 AM CDT SPEECH LANGUAGE PATHOLOGY PROGRESS NOTE Patient's Name: Gunjan Gtz JrMason : 1945 Age: 78 y.o. Time In: 8:57 Time Out: 9:22 Patient Active Problem List Diagnosis Primary osteoarthritis of both knees Subchondral insufficiency fracture of condyle of left femur (CMS/HCC) (HCC) Closed fracture of left tibial plateau with delayed healing Closed fracture of right tibial plateau with delayed healing Closed nondisplaced osteochondral fracture of left patella with delayed healing Closed osteochondral fracture of patella, right, with delayed healing, subsequent encounter Complex tear of medial meniscus of right knee as current injury Complex tear of medial meniscus of left knee as current injury Goiter Breast pain, right Cataract of right eye Diplopia Esotropia Hypertropia of right eye Skin lesion of breast Edema Intermittent claudication (HCC) Iron deficiency anemia Peripheral vascular disease (HCC) Pain due to total right knee replacement (CMS/HCC) ([facility]) Hamstring tendinitis of right thigh Quadriceps weakness Idiopathic peripheral neuropathy Abnormality of gait and mobility Hx of total knee replacement, right Neuropathy (CMS/HCC) 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 Biceps tendinitis of left upper extremity Tear of left glenoid labrum Coffee ground emesis Upper GI bleed Acquired hypothyroidism Acute blood loss anemia Lung nodule Nocturnal cough Hiatal hernia Infrarenal abdominal aortic aneurysm (AAA) without rupture ([facility]) Acute CVA (cerebrovascular accident) ([facility]) Moderate malnutrition (CMS/[facility]) Past Medical History: Diagnosis Date Acute gastric ulcer without hemorrhage or perforation Ulcer, gastric, acute - (Added by TW Conv) Alzheimer's dementia ([facility]) Asthma Back pain Cataract Closed fracture of left tibial plateau with delayed healing Closed fracture of right tibial plateau with delayed healing Closed nondisplaced osteochondral fracture of left patella with delayed healing Closed osteochondral fracture of patella, right, with delayed healing, subsequent encounter Clotting disorder ([facility]) ([facility]) Complex tear of medial meniscus of left knee as current injury Complex tear of medial meniscus of right knee as current injury Cramps of lower extremity Diverticulitis of colon Easy bruisability Fatigue Frequent urination Gastroesophageal reflux disease GERD Hypothyroidism Incontinence of urine Muscle weakness Osteoarthritis Osteoarthritis Peptic ulcer Peptic ulcer disease Seizures ([facility]) 1997 last seizure in 1997 SOB (shortness of breath) on exertion Subchondral insufficiency fracture of condyle of left femur (CMS/HCC) ([facility]) Vertigo Vision changes Visual disturbance hx of double vision, corrective lenses Past Surgical History: Procedure Laterality Date CATARACT EXTRACTION, BILATERAL Bilateral 2018 HERNIA REPAIR 1980 Hiatal Hernia repair KNEE ARTHROSCOPY Bilateral THYROIDECTOMY 12/27/2019 SUBJECTIVE MENTAL STATUS: Awake, alert, pleasant and cooperative with session activities PAIN: Pre Therapy Pain Level:7/10 Pain Location:Left elbow Pain Intervention:Pain medication already given Post Therapy Pain Level/Response to Intervention:0/10 OBJECTIVE PRECAUTIONS: Fall precautions SWALLOWING: Tolerating regular diet with thin liquids COGNITION: Cognitive deficits in short-term memory, insight, and problem solving/reasoning. COMMUNICATION: Mild dysarthria TREATMENT ACTIVITIES: Oral motor exercises x10 each Functional memory: answering questions follow paragraph with 95% accuracy independently. EDUCATION: PATIENT/FAMILY EDUCATION: Discussed purpose of activities Response to Education: Verbalized understanding ASSESSMENT Activity Tolerance/Response to S.T.: Tolerated treatment with no complaints Barriers to learning: Cognition, Vision Current status: Patient with mild/moderate cognitive deficits Progress toward goals: Patient continues to progress toward previously set goals which remain appropriate at this time. PLAN Multi-Disciplinary Problems (from Speech Therapy) Active Problems Problem: [place]OLOG[place] [facility] [place]: 12/16/23 Goal Start Date Expected End Date End Date [facility] 1 12/16/23 12/23/23 -- Goal Details: Patient to perform short term memory tasks using compensatory strategies with 80% accuracy. Goal Start Date Expected End Date End Date [facility] 2 12/16/23 12/23/23 -- Goal Details: Patient to perform functional problem solving/reasoning tasks with 80% accuracy. Goal Start Date Expected End Date End Date Formerly [facility] 3 12/16/23 12/23/23 -- Goal Details: Patient to attend to left visual field 80% of the time given 2-3 verbal prompts. Goal Start Date Expected End Date End Date [facility]ly [facility] 4 12/16/23 12/23/23 -- Goal Details: Patient's speech to be 90% intelligible during conversational tasks utilizing compensatory strategies. Frequency of Treatment: BID 5xs weekly Recommendations: Home with 24 hour supervision If this is the last note, consider this the discharge summary. * Madie Oneill, DIRECTOR OF RECRUITING - 12/27/2023 2:36 PM CDT Physical Therapy PT PROGRESS NOTE Gunjan Gtz Jr. 78 y.o. 1945 Past Medical History: Diagnosis Date Acute gastric [...] delayed healing, subsequent encounter Clotting disorder (CMS/HCC) ([facility]) Complex tear of medial meniscus of left knee as current injury Complex tear of medial meniscus of right knee as current injury Cramps of lower extremity Diverticulitis of colon Easy bruisability Fatigue Frequent urination Gastroesophageal reflux disease GERD Hypothyroidism Incontinence of urine Muscle weakness Osteoarthritis Osteoarthritis Peptic ulcer Peptic ulcer disease Seizures (HCC) 1997 last seizure in 1997 SOB (shortness of breath) on exertion Subchondral insufficiency fracture of condyle of left femur (CMS/HCC) ([facility]) Vertigo Vision changes Visual disturbance hx of double vision, corrective lenses Past Surgical History: Procedure Laterality Date CATARACT EXTRACTION, BILATERAL Bilateral 2018 HERNIA REPAIR 1980 Hiatal Hernia repair KNEE ARTHROSCOPY Bilateral THYROIDECTOMY 12/27/2019 Patient Active Problem List Diagnosis Primary osteoarthritis of both knees Subchondral insufficiency fracture of condyle of left femur (CMS/HCC) ([facility]) Closed fracture of left tibial plateau with delayed healing Closed fracture of right tibial plateau with delayed healing Closed nondisplaced osteochondral fracture of left patella with delayed healing Closed osteochondral fracture of patella, right, with delayed healing, subsequent encounter Complex tear of medial meniscus of right knee as current injury Complex tear of medial meniscus of left knee as current injury Goiter Breast pain, right Cataract of right eye Diplopia Esotropia Hypertropia of right eye Skin lesion of breast Edema Intermittent claudication ([facility]) Iron deficiency anemia Peripheral vascular disease ([facility]) Pain due to total right knee replacement (CMS/HCC) ([facility]) Hamstring tendinitis of right thigh Quadriceps weakness Idiopathic peripheral neuropathy Abnormality of gait and mobility Hx of total knee replacement, right Neuropathy (CMS/HCC) 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 Biceps tendinitis of left upper extremity Tear of left glenoid labrum Coffee ground emesis Upper GI bleed Acquired hypothyroidism Acute blood loss anemia Lung nodule Nocturnal cough Hiatal hernia Infrarenal abdominal aortic aneurysm (AAA) without rupture ([facility]) Acute CVA (cerebrovascular accident) ([facility]) Moderate malnutrition (CMS/HCC) TIME IN: 1433 TIME OUT: 1518 SUBJECTIVE She put a patch on my elbow. Patient referring to skin protection covering elbow on L UE. MENTAL STATUS/ORIENTATION: Alert and oriented x4 PAIN: Pre-therapy pain level: none Pain location: na Pain intervention: pain patch applied to L shoulder in AM Post-therapy pain level/response to intervention: none OBJECTIVE PRECAUTIONS: fall APPEARANCE/POSTURE: present in therapy gym, seated in W/C, chair alarm active. Wound dressing and yellow sock covering L UE to protect skin on L elbow. VITAL SIGNS: Resting BP: -- Post-activity BP: -- Resting heart rate: 52 Post-activity heart rate: -- Resting O2 sat: 96 Post-activity O2 sat: -- MOBILITY DOCUMENTATION: Bed Mobility: NT Transfers: sit <> stand from w/c to rasheed-aide with MIN assist Ambulation: 100' with rasheed-aide and MOD to MIN assist and a W/C follow. Patient with short step length, step to pattern, increased L lean with fatigue. Poor terminal knee extension on L LE, decreasedcadence. Stairs: NT Wheelchair management & propulsion: 110' forward with L turns and use of KATELIN LE only. SPV. Improved in L side obstacle avoidance compared to last week. Decreased knee flexion with L LE. TREATMENT: W/C mobility and gait. Appearance/Posture at end of treatment session: returned to room, seated in w/c, chair alarm active, call light in reach, pentec[employer]al[employer] friend present to trim patient's hair. EDUCATION: PATIENT/FAMILY EDUCATION: sequencing and weight shifting for gait Response to Education: needs reinforcement ASSESSMENT Activity tolerance/response to PT: GOOD Patient significantly increased gait distance this date although compensations and weakness continue to require up to MOD assist and a w/c follow. Barriers to learning: Physical Barriers to discharge: unchanged from AM Patient continues progressing toward previously set goals which remain appropriate at this time. PLAN Patient to be seen bid 5x/week to address previously established deficits and goals. * Kay Isidro COTA - 12/27/2023 1:38 PM CDT Occupational Therapy NOTE TYPE: OT TREATMENT ([facility] DEPARTMENT SESSION) PATIENT'S NAME: Gunjan Gtz Jr. AGE / SEX: 78 y.o. / male ROOM: [place] [id number] : 1945 DATE: 12/27/23 TIME IN: 1335 TIME OUT: 1414 Patient Active Problem List Diagnosis Primary osteoarthritis of both knees Subchondral insufficiency fracture of condyle of left femur (CMS/HCC) ([facility]) Closed fracture of left tibial plateau with delayed healing Closed fracture of right tibial plateau with delayed healing Closed nondisplaced osteochondral fracture of left patella with delayed healing Closed osteochondral fracture of patella, right, with delayed healing, subsequent encounter Complex tear of medial meniscus of right knee as current injury Complex tear of medial meniscus of left knee as current injury Goiter Breast pain, right Cataract of right eye Diplopia Esotropia Hypertropia of right eye Skin lesion of breast Edema Intermittent claudication (HCC) Iron deficiency anemia Peripheral vascular disease (HCC) Pain due to total right knee replacement (CMS/HCC) ([facility]) Hamstring tendinitis of right thigh Quadriceps weakness Idiopathic peripheral neuropathy Abnormality of gait and mobility Hx of total knee replacement, right Neuropathy (CMS/HCC) 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 Biceps tendinitis of left upper extremity Tear of left glenoid labrum Coffee ground emesis Upper GI bleed Acquired hypothyroidism Acute blood loss anemia Lung nodule Nocturnal cough Hiatal hernia Infrarenal abdominal aortic aneurysm (AAA) without rupture (HCC) Acute CVA (cerebrovascular accident) ([facility]) Moderate malnutrition (CMS/[facility]) Past Medical History: Diagnosis Date Acute gastric ulcer without hemorrhage or perforation Ulcer, gastric, acute - (Added by TW Conv) Alzheimer's dementia ([facility]) Asthma Back pain Cataract Closed fracture of left tibial plateau with delayed healing Closed fracture of right tibial plateau with delayed healing Closed nondisplaced osteochondral fracture of left patella with delayed healing Closed osteochondral fracture of patella, right, with delayed healing, subsequent encounter Clotting disorder (CMS/HCC) ([facility]) Complex tear of medial meniscus of left knee as current injury Complex tear of medial meniscus of right knee as current injury Cramps of lower extremity Diverticulitis of colon Easy bruisability Fatigue Frequent urination Gastroesophageal reflux disease GERD Hypothyroidism Incontinence of urine Muscle weakness Osteoarthritis Osteoarthritis Peptic ulcer Peptic ulcer disease Seizures ([facility]) 1997 last seizure in 1997 SOB (shortness of breath) on exertion Subchondral insufficiency fracture of condyle of left femur (CMS/HCC) ([facility]) Vertigo Vision changes Visual disturbance hx of double vision, corrective lenses Past Surgical History: Procedure Laterality Date CATARACT EXTRACTION, BILATERAL Bilateral 2018 HERNIA REPAIR 1979 Hiatal Hernia repair KNEE ARTHROSCOPY Bilateral THYROIDECTOMY 12/27/2019 PRECAUTIONS (INCLUDING WEIGHT-BEARING): Fall risk and Bed / chair alarm SUBJECTIVE: I'm going to need a wc for long distances when I get home. THERAPY PAIN: PRE-THERAPY PAIN LEVEL: 0 / 10 PAIN LOCATION: No pain - Location N/A PAIN INTERVENTION(S): No pain - Intervention N/A POST-THERAPY PAIN LEVEL: 0 / 10 PAIN SCALE USED: 0-10 SCALE OBJECTIVE: APPEARANCE: PRESENTATION UPON OT ARRIVAL: PATIENT Sitting in manual wheelchair at bedside PRESENTATION UPON OT DEPARTURE: PATIENT Sitting in manual wheelchair with staff assistance BED / CHAIR ALARM IN PLACE AND ACTIVATED UPON OT DEPARTURE: Yes CALL LIGHT WITHIN ARMS REACH OF PATIENT AT END OF SESSION: No - due to patient taken to physical therapy gym COMPLETED PATIENT HANDOFF AND NOTIFIED Physical Therapist / Physical Therapist Human Resources Clerk, NAME: Kathy, OF PATIENT'S LOCATION AND FUNCTIONAL STATUS UPON COMPLETION OF SESSION UE THERAPEUTIC EXERCISES: PROM and gentle stretching LUE while pt sat in wc. Therapist made sure that L shoulder approximatedin proper position to be able to range to approx 140 degrees. Therapist completed scapular mobilization and joint proprioception to L shoulder. Pt demonstrated L AROM to approx 70 degrees shoulder ABD. Vibration used as stimulation to facilitate L scapular elevation with good success. (Used mirror) Pt having L elbow pain when touched. Therapist feels pt is bumping elbow on wc armrest, etc. Allevyn placed on L elbow with sock over it to keep it in place. CAREGIVER PRESENT (YES / NO): No EDUCATION & TRAINING PROVIDED: UE home exercise program ASSESSMENT: ACTIVITY TOLERANCE / RESPONSE TO OT: GOOD PARTICIPATION, GOOD MOTIVATION, and RECEPTIVE TO EDUCATION / TRAINING PROGRESS TOWARDS GOALS: PLEASE REFER TO CARE PLAN FROM THIS DATE FOR PROGRESS TOWARDS INDIVIDUAL GOALS PLAN: PLEASE REFER TO MOST RECENT INPATIENT REHABILITATION TEAM CONFERENCE NOTE FOR DISCHARGE PLAN, INCLUDING LOCATION, RECOMMENDED LEVEL OF SUPERVISION AND ARRANGEMENTS. FREQUENCY OF THERAPY: BID SESSIONS 5 DAYS / WEEK TO ADDRESS PREVIOUSLY ESTABLISHED DEFICITS AND GOALS [facility] 12/27/23 * Ella Carter, MONA - 12/27/2023 1:08 PM CDT SPEECH LANGUAGE PATHOLOGY PROGRESS NOTE Patient's Name: Gunjan Gtz Jr. : 1945 Age: 78 y.o. Time In: 13:00 Time Out: 13:24 Patient Active Problem List Diagnosis Primary osteoarthritis of both knees Subchondral insufficiency fracture of condyle of left femur (CMS/HCC) (HCC) Closed fracture of left tibial plateau with delayed healing Closed fracture of right tibial plateau with delayed healing Closed nondisplaced osteochondral fracture of left patella with delayed healing Closed osteochondral fracture of patella, right, with delayed healing, subsequent encounter Complex tear of medial meniscus of right knee as current injury Complex tear of medial meniscus of left knee as current injury Goiter Breast pain, right Cataract of right eye Diplopia Esotropia Hypertropia of right eye Skin lesion of breast Edema Intermittent claudication (HCC) Iron deficiency anemia Peripheral vascular disease ([facility]) Pain due to total right knee replacement (CMS/HCC) ([facility]) Hamstring tendinitis of right thigh Quadriceps weakness Idiopathic peripheral neuropathy Abnormality of gait and mobility Hx of total knee replacement, right Neuropathy (CMS/HCC) 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 Biceps tendinitis of left upper extremity Tear of left glenoid labrum Coffee ground emesis Upper GI bleed Acquired hypothyroidism Acute blood loss anemia Lung nodule Nocturnal cough Hiatal hernia Infrarenal abdominal aortic aneurysm (AAA) without rupture ([facility]) Acute CVA (cerebrovascular accident) ([facility]) Moderate malnutrition (CMS/[facility]) Past Medical History: Diagnosis Date Acute gastric ulcer without hemorrhage or perforation Ulcer, gastric, acute - (Added by TW Conv) Alzheimer's dementia ([facility]) Asthma Back pain Cataract Closed fracture of left tibial plateau with delayed healing Closed fracture of right tibial plateau with delayed healing Closed nondisplaced osteochondral fracture of left patella with delayed healing Closed osteochondral fracture of patella, right, with delayed healing, subsequent encounter Clotting disorder (CMS/HCC) ([facility]) Complex tear of medial meniscus of left knee as current injury Complex tear of medial meniscus of right knee as current injury Cramps of lower extremity Diverticulitis of colon Easy bruisability Fatigue Frequent urination Gastroesophageal reflux disease GERD Hypothyroidism Incontinence of urine Muscle weakness Osteoarthritis Osteoarthritis Peptic ulcer Peptic ulcer disease Seizures ([facility]) 1997 last seizure in 1997 SOB (shortness of breath) on exertion Subchondral insufficiency fracture of condyle of left femur (CMS/HCC) ([facility]) Vertigo Vision changes Visual disturbance hx of double vision, corrective lenses Past Surgical History: Procedure Laterality Date CATARACT EXTRACTION, BILATERAL Bilateral 2018 HERNIA REPAIR 1980 Hiatal Hernia repair KNEE ARTHROSCOPY Bilateral THYROIDECTOMY 12/27/2019 SUBJECTIVE MENTAL STATUS: Awake, alert, finishing lunch PAIN: Pre Therapy Pain Level:3/10 Pain Location:Shoulder due to wheelchair bar Pain Intervention:Pillow provided Post Therapy Pain Level/Response to Intervention: It's better with the pillow. OBJECTIVE PRECAUTIONS: Fall precautions SWALLOWING: Tolerating regular diet with thin liquids COGNITION: Cognitive deficits in short-term memory, insight, and problem solving/reasoning. Oriented x4 COMMUNICATION: Mild dysarthria TREATMENT ACTIVITIES: Left scanning task: answering questions related to calendar with 100% accuracy Divergent naming: Name 3 members of abstract category with 90% accuracy Convergent naming: Name abstract category given 3 objects with 90% accuracy EDUCATION: PATIENT/FAMILY EDUCATION: Discussed purpose of activities Response to Education: Verbalized understanding ASSESSMENT Activity Tolerance/Response to S.T.: Tolerated therapy with no complaints Barriers to learning: Cognition, Vision Current status: Patient with mild/moderate cognitive deficits Progress toward goals: Patient continues to progress toward previously set goals which remain appropriate at this time. PLAN Multi-Disciplinary Problems (from Speech Therapy) Active Problems Problem: [place]OLOG[place] [facility] Start Date: 12/16/23 Goal Start Date Expected End Date End Date Formerly [facility] 1 12/16/23 12/23/23 -- Goal Details: Patient to perform short term memory tasks using compensatory strategies with 80% accuracy. Goal Start Date Expected End Date End Date Formerly [facility] 2 12/16/23 12/23/23 -- Goal Details: Patient to perform functional problem solving/reasoning tasks with 80% accuracy. Goal Start Date Expected End Date End Date Formerly [facility] 3 12/16/23 12/23/23 -- Goal Details: Patient to attend to left visual field 80% of the time given 2-3 verbal prompts. Goal Start Date Expected End Date End Date Formerly [facility] 4 12/16/23 12/23/23 -- Goal Details: Patient's speech to be 90% intelligible during conversational tasks utilizing compensatory strategies. Frequency of Treatment: BID 5xs weekly Recommendations: Home with 24 hour supervision If this is the last note, consider this the discharge summary. * Becky Montana MD - 12/27/2023 11:15 AM CDT INPATIENT REHABILITATION DAILY PROGRESS NOTE CHIEF COMPLAINT: right posterior limb internal capsule infarct SUBJECTIVE: States his elbow hurts. Having spasms in left hand. Reports cold is worse, now having nasal congestion. OBJECTIVE: VITALS: Vitals: 12/26/23 1002 12/26/23 1842 12/27/23 0640 12/27/23 0709 BP: 112/76 116/74 BP Location: Right arm Right arm Patient Position: Sitting Sitting Pulse: 67 66 Resp: 16 18 Temp: 36.3 ??C (97.3 ??F) 36.5 ??C (97.7 ??F) TempSrc: Oral Oral SpO2: 95% 97% 97% 96% Weight: Height: PHYSICAL EXAM: General: no acute distress, in bed HEENT: normocephalic, trachea midline Heart: rrr Lungs: ctab GI: soft, nontender Neuro: awake, alert LABS/RADIOLOGY/DIAGNOSTIC REVIEW Recent Labs Lab Units 12/27/23 0438 WBC K/cumm 6.7 HEMOGLOBIN g/dL 12.8* HEMATOCRIT % 39.3 PLATELETS K/cumm 235 Recent Labs Lab Units 12/27/23 0438 SODIUM mmol/L 141 POTASSIUM PLASMA mmol/L 4.2 CHLORIDE mmol/L 107 CO2 mmol/L 26 ANIONGAP mmol/L 8 GLUCOSE mg/dL 107 BUN SERUM mg/dL 18 CREATININE mg/dL 1.30 CALCIUM mg/dL 8.9 ALBUMIN g/dL 3.2* ALK PHOS Units/L 115 ALT Units/L 22 AST Units/L 23 BILIRUBIN TOTAL mg/dL 0.5 Recent Labs Lab Units 12/27/23 0438 GLUCOSE mg/dL 107 OT Functional Mobility: 12/20 Functional transfers: MOD-MAX OT Self Care: 12/20 Bathing: MAX Grooming: MAX UB dress:MOD LB dress: MAX Footwear: MAX Toileting:TOTAL NUMEROLOGIST Cognition: Mild/moderate cognitive deficits in short term memory and thought organization. NUMEROLOGIST Communication: Mild dysarthric speech. NUMEROLOGIST Swallowing: Swallow assessed by NUMEROLOGIST. Regular consistency diet/thin liquids recommended. Patientuses intermittent finger/lingual sweep and liquid wash to clear residue. PT Functional Mobility: 12/21/23: supine <> sit with MIN assist for L LE. Rolling toward L side with SBA. Sit <> stand to rasheed-aide with MOD to MIN assist. 12' gait with rasheed-aide and MOD assist. Stand pivot with rasheed-aide and MAX assist. W/C mobility 60'-75' with R LE and UE with SPV. No results found. MEDICATIONS: Current Facility-Administered Medications: acetaminophen (TYLENOL) tablet 650 mg, 650 mg, oral, Q6H PRN, Becky Montana MD, 650 mg at 12/27/23 0348 albuterol HFA (PROVENTIL HFA,VENTOLIN HFA,PROAIR HFA) 90 mcg/actuation inhaler 2 puff, 2 puff, inhalation, Q4H PRN (RT), Becky Montana MD aspirin chewable tablet 81 mg, 81 mg, oral, Daily, Becky Montana MD, 81 mg at 12/27/23 0834 calcium carbonate (TUMS) chewable tablet 1,000 mg, 400 mg of elemental calcium, oral, TID PRN, Becky Montana MD cetirizine (ZyrTEC) tablet 10 mg, 10 mg, oral, Daily, Becky Montana MD, 10 mg at 12/27/23 0835 donepeziL (ARICEPT) tablet 10 mg, 10 mg, oral, Nightly, Becky Montana MD, 10 mg at 12/26/232035 enoxaparin (LOVENOX) syringe 40 mg, 40 mg, subcutaneous, Daily-2100, Becky Rudd MD, 40 mg at 12/26/232035 fluticasone furoate-vilanteroL (BREO ELLIPTA) 100-25 mcg/dose inhaler 1 puff, 1 puff, inhalation, Daily (RT), Becky Montana MD, 1 puff at 12/27/23 0709 fluticasone propionate (FLONASE) 50 mcg/actuation nasal spray 1 spray, 1 spray, each nostril, BID, Becky Montana MD gabapentin (NEURONTIN) capsule 300 mg, 300 mg, oral, TID, Becky Montana MD, 300 mg at 12/27/23 0835 guaiFENesin ER (MUCINEX) extended release tablet 600 mg, 600 mg, oral, BID, Jl Montana MD, 600 mg at 12/27/23 0834 levothyroxine (SYNTHROID) tablet 150 mcg, 150 mcg, oral, Daily - 0600, Becky Rudd MD, 150 mcg at 12/27/23 0644 lidocaine (LIDODERM) 5 % patch 1 patch, 1 patch, transdermal, Q24H, Becky Rudd MD, 1 patch at 12/26/23 1109 ofloxacin (OCUFLOX) 0.3 % ophthalmic solution 1 drop, 1 drop, each eye, Daily PRN, Becky Montana MD ondansetron (ZOFRAN) tablet 4 mg, 4 mg, oral, TID PRN, Becky Montana MD pantoprazole DR (PROTONIX) extended release tablet 40 mg, 40 mg, oral, BID, Jl Montana MD, 40 mg at 12/27/23 0835 polyethylene glycol (MIRALAX) packet 17 g, 17 g, oral, Daily, Becky Montana MD, 17 gat 12/27/23 0834 ramelteon (ROZEREM) tablet 8 mg, 8 mg, oral, Nightly PRN, Becky Montana MD, 8 mg at 12/26/232035 rosuvastatin (CRESTOR) tablet 40 mg, 40 mg, oral, Daily, Becky Montana MD, 40 mg at 12/27/23 0835 senna-docusate (PERICOLACE) 8.6-50 mg per tablet 1 tablet, 1 tablet, oral, BID PRN, Becky Montana MD, 1 tablet at 12/19/23 0837 simethicone (MYLICON) chewable tablet 80 mg, 80 mg, oral, TID PRN, Becky Rudd MD tamsulosin (FLOMAX) extended release capsule 0.4 mg, 0.4 mg, oral, Nightly, Jl Montana MD, 0.4 mg at 12/26/232035 tiZANidine (ZANAFLEX) tablet 2 mg, 2 mg, oral, TID PRN, Becky Montana MD, 2 mg at 12/27/23 0644 traMADoL (ULTRAM) tablet 50 mg, 50 mg, oral, Q6H PRN, Becky Montana MD, 50 mg at 12/27/23 0644 ASSESSMENT/PLAN: MEDICAL PLAN OF CARE: 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 Reviewed home medicine - on spironolactone 25mg and lasix 20mg 12/26: controlled HLD: continue rosuvastatin 40mg AAA: no current medications Hypothyroidism: continue levothyroxine 150mcg GERD: continue pantoprazole 40mg bid Alzheimer: continue donepezil 10mg qhs Depression: no current medications Asthma: continue breo ellipta 100-25 daily BPH: continue flomax 0.4mg qhs 12/23: reviewed home medications - on oxybutynin 15mg and gemtesa 75mg for overactive bladder - hold for now Neuropathy: continue gabapentin 300mg tid Pain: Start Tylenol 650mg q6h prn, oxycodone 5mg q4h prn 12/22: lidoderm patch, decrease frequency of oxycodone to q6h prn 12/23: reviewed home medications, dc oxycodone and start tramadol 50mg q6h prn Bowels: Start miralax daily, pericolace bid prn, simethicone prn 12/16: dulcolax 10mg x1 Nausea: Start Zofran prn, Tums prn Congestion: start mucinex 600mg bid 12/23: start home cetirizine 10mg 12/26: start flonase bid Diet: Reg/Thin HH 2G Na DVT ppx: restart lovenox Precautions: Fall Weightbearing status: full Code: Full Code Care discussed with Nursing Reviewed vital signs, intake, bowel, and bladder - as above Reviewed weekly cmp, cbc - wnl REHAB PLAN OF CARE: Patient's expected intensity and duration of participation in the interdisciplinary rehabilitation program and disciplines that comprise this team: Therapies required to achieve goals:The patient will benefit from integrated coordination of care from the following interdisciplinary services: Medical Supervision, 24 hours Rehabilitation Nursing, Physical Therapy, Occupational Therapy, Case Management; Social Work; Therapeutic Recreation; SpeechTherapy; Flatwork Feeder Frequency and duration of therapies expect to be:Expected intensity and frequency of participation in the interdisciplinary rehab program is: 3 hours per day except Wednesday. Expected intensity and frequency of Physical Therapy (PT): 1.5 hours per day over 5-7 days for the duration of length of stay Expected intensity and frequency of Occupational Therapy (OT): 1.5 hours per day over 5-7 days per week for the duration of length of stay Expected intensity and frequency of Speech Therapy (NUMEROLOGIST): 1 hour per day per day over 5-7 days per week for the duration of length of stay FUNCTIONAL CHANGE: Amb 20' rasheed aide Ole DISCHARGE PLANNING: Expected Discharge Date: TBD Equipment: TBD Family Training: SW to set up Education: Follow up Appointments: PCP 1-2 weeks Becky Montana MD Physical Medicine and Rehabilitation I can be reached from 7am-7pm through [employer]. Hospitalist forest fire prevention manager from 7pm-7am * Madie Oneill PTA - 12/27/2023 11:02 AM CDT Physical Therapy PT PROGRESS NOTE Gunjan Gtz Jr. 78 y.o. 1945 Past Medical History: Diagnosis Date Acute gastric [...] delayed healing, subsequent encounter Clotting disorder (CMS/HCC) (HCC) Complex tear of medial meniscus of left knee as current injury Complex tear of medial meniscus of right knee as current injury Cramps of lower extremity Diverticulitis of colon Easy bruisability Fatigue Frequent urination Gastroesophageal reflux disease GERD Hypothyroidism Incontinence of urine Muscle weakness Osteoarthritis Osteoarthritis Peptic ulcer Peptic ulcer disease Seizures (HCC) 1997 last seizure in 1997 SOB (shortness of breath) on exertion Subchondral insufficiency fracture of condyle of left femur (CMS/HCC) (HCC) Vertigo Vision changes Visual disturbance hx of double vision, corrective lenses Past Surgical History: Procedure Laterality Date CATARACT EXTRACTION, BILATERAL Bilateral 2018 HERNIA REPAIR 1979 Hiatal Hernia repair KNEE ARTHROSCOPY Bilateral THYROIDECTOMY 12/27/2019 Patient Active Problem List Diagnosis Primary osteoarthritis of both knees Subchondral insufficiency fracture of condyle of left femur (CMS/HCC) (HCC) Closed fracture of left tibial plateau with delayed healing Closed fracture of right tibial plateau with delayed healing Closed nondisplaced osteochondral fracture of left patella with delayed healing Closed osteochondral fracture of patella, right, with delayed healing, subsequent encounter Complex tear of medial meniscus of right knee as current injury Complex tear of medial meniscus of left knee as current injury Goiter Breast pain, right Cataract of right eye Diplopia Esotropia Hypertropia of right eye Skin lesion of breast Edema Intermittent claudication (HCC) Iron deficiency anemia Peripheral vascular disease (HCC) Pain due to total right knee replacement (CMS/HCC) (HCC) Hamstring tendinitis of right thigh Quadriceps weakness Idiopathic peripheral neuropathy Abnormality of gait and mobility Hx of total knee replacement, right Neuropathy (CMS/HCC) 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 Biceps tendinitis of left upper extremity Tear of left glenoid labrum Coffee ground emesis Upper GI bleed Acquired hypothyroidism Acute blood loss anemia Lung nodule Nocturnal cough Hiatal hernia Infrarenal abdominal aortic aneurysm (AAA) without rupture (HCC) Acute CVA (cerebrovascular accident) (HCC) Moderate malnutrition (CMS/HCC) TIME IN: 1110 TIME OUT: 1155 SUBJECTIVE Just my elbow. Patient reporting some pain in his elbow as new. MENTAL STATUS/ORIENTATION: Tired, oriented x 4 PAIN: Pre-therapy pain level: 2/10 Pain location: left elbow Pain intervention: na Post-therapy pain level/response to intervention: none OBJECTIVE PRECAUTIONS: fall APPEARANCE/POSTURE: present in room, late arrival from OT due to patient requiring additional visitto restroom. Seated in w/c, chair alarm active MOBILITY DOCUMENTATION: Bed Mobility: NT Transfers: sit <> stand with MIN assist from w/c and standard toilet height. V/C regarding pushing up from chair vs pulling up on grab bar or rasheed-bar Stand pivot from W/C <> standard toilet height with MIN assist for safety and balance. Ambulation: 6' side stepping with L LE lead + 6' side stepping with R LE lead with single UE support on rasheed-bar. MIN assist and blocking of L knee. Stairs: NT Wheelchair management & propulsion: NT TREATMENT: Patient performs standing terminal knee extension with single UE support on rasheed-bar. Green thera-band, MOD resistance x 12 reps. V/C regarding holding knee in extension for at least 3 seconds. MIN assist to support L knee and maintain tall posture. Seated HEP x 5 reps on L LE with manual MOD resistance. Encourage 5 second holds for hip aDD/ABD 10 reps on R LE with green thera band and MOD resistance for hip ABD and ADD Patient with continent bowel episode on standard toilet height. DEP to manage clothing, MOD assist for thoroughness for sandra-care. Good standing balance with single UE on rasheed-bar. Appearance/Posture at end of treatment session: seated in w/c, chair alarm active, call light in reach, lunch tray set up. EDUCATION: PATIENT/FAMILY EDUCATION: balance, safety, transfers, HEP Response to Education: needs reinforcement ASSESSMENT Activity tolerance/response to PT: FAIR + Patient has difficulty remaining awake if patient is not engaged in standing activities. Decreased tolerance for strengthening activities on affected side. Barriers to learning: Physical and Cognitive Barriers to discharge: Limited family support, No caregiver support, Cognitive deficit, Limited safety awareness, Limited insight into deficits, Unrealistic expectations, Decreased endurance, Decreased sensation, Decreased proprioception, Upper extremity weakness, Lower extremity weakness, and Stairs at home Patient continues progressing toward previously set goals which remain appropriate at this time. PLAN Patient to be seen bid 5x/week to address previously established deficits and goals. * Kay Isidro COTA - 12/27/2023 10:00 AM CDT Occupational Therapy NOTE TYPE: OT TREATMENT ([facility] BEDSIDE SESSION) Patient's Name: Gunjan Gtz Jr. Age / Sex: 78 y.o. / male Room: [place] [id number] : 1945 Date: 12/27/23 Time In: 1000 Time Out: 1109 Patient Active Problem List Diagnosis Primary osteoarthritis of both knees Subchondral insufficiency fracture of condyle of left femur (CMS/HCC) ([facility]) Closed fracture of left tibial plateau with delayed healing Closed fracture of right tibial plateau with delayed healing Closed nondisplaced osteochondral fracture of left patella with delayed healing Closed osteochondral fracture of patella, right, with delayed healing, subsequent encounter Complex tear of medial meniscus of right knee as current injury Complex tear of medial meniscus of left knee as current injury Goiter Breast pain, right Cataract of right eye Diplopia Esotropia Hypertropia of right eye Skin lesion of breast Edema Intermittent claudication ([facility]) Iron deficiency anemia Peripheral vascular disease ([facility]) Pain due to total right knee replacement (CMS/HCC) ([facility]) Hamstring tendinitis of right thigh Quadriceps weakness Idiopathic peripheral neuropathy Abnormality of gait and mobility Hx of total knee replacement, right Neuropathy (CMS/HCC) 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 Biceps tendinitis of left upper extremity Tear of left glenoid labrum Coffee ground emesis Upper GI bleed Acquired hypothyroidism Acute blood loss anemia Lung nodule Nocturnal cough Hiatal hernia Infrarenal abdominal aortic aneurysm (AAA) without rupture ([facility]) Acute CVA (cerebrovascular accident) ([facility]) Moderate malnutrition (CMS/HCC) Past Medical History: Diagnosis Date Acute gastric ulcer without hemorrhage or perforation Ulcer, gastric, acute - (Added by TW Conv) Alzheimer's dementia ([facility]) Asthma Back pain Cataract Closed fracture of left tibial plateau with delayed healing Closed fracture of right tibial plateau with delayed healing Closed nondisplaced osteochondral fracture of left patella with delayed healing Closed osteochondral fracture of patella, right, with delayed healing, subsequent encounter Clotting disorder (CMS/HCC) ([facility]) Complex tear of medial meniscus of left knee as current injury Complex tear of medial meniscus of right knee as current injury Cramps of lower extremity Diverticulitis of colon Easy bruisability Fatigue Frequent urination Gastroesophageal reflux disease GERD Hypothyroidism Incontinence of urine Muscle weakness Osteoarthritis Osteoarthritis Peptic ulcer Peptic ulcer disease Seizures ([facility]) 1997 last seizure in 1997 SOB (shortness of breath) on exertion Subchondral insufficiency fracture of condyle of left femur (CMS/HCC) (HCC) Vertigo Vision changes Visual disturbance hx of double vision, corrective lenses Past Surgical History: Procedure Laterality Date CATARACT EXTRACTION, BILATERAL Bilateral 2018 HERNIA REPAIR 1979 Hiatal Hernia repair KNEE ARTHROSCOPY Bilateral THYROIDECTOMY 12/27/2019 Precautions (Including Weight-Bearing): Fall risk and Bed / chair alarm SUBJECTIVE: Patient agreeable Therapy Pain: Pre-therapy pain level: 0 / 10 Pain location: No pain - Location N/A Pain intervention(s): No pain - Intervention N/A Post-therapy pain level: 0 / 10 Pain scale used: 0-10 SCALE OBJECTIVE: APPEARANCE: Presentation upon OT arrival: Patient Sitting in bedside recliner Presentation upon OT departure: PATIENT Sitting in manual wheelchair with staff assistance Bed / chair alarm in place and activated upon OT departure: Yes Call light within arms reach of patient at end of session: No - due to patient taken to physical therapy gym Completed patient handoff and notified Physical Therapist / Physical Therapist Human Resources Clerk, name: Marcia, of patient's location and functional status upon completion of session. COGNITIVE / PERCEPTUAL: Alert and oriented to conversation SELF CARE: Shower / Bathe Self Type of bathing: SPONGEBATHING Location of shower / bathe self: Sitting in manual wheelchair and Standing at grab bar Tasks completed: Face, chest, abdomen, UEs, sandra area, buttocks. (Did not address legs/feet) Components that required assistance (if applicable): MAX A R arm and buttocks Overall assist level: MOD A. Adaptive equipment (if applicable): no assistive device Additional documentation: Stood at sink with min/CGA while washing frontal sandra area. MAX A for buttocks with CGA and use of sink for support. MAX A for R arm. Oral Hygiene Location of oral hygiene: Sitting in manual wheelchair Overall assist level: SET UP Additional documentation: Assist to apply paste to toothbrush. Other Grooming Tasks Location of other grooming tasks: Sitting in manual wheelchair Tasks completed: Combing hair, spray deodorant Overall assist level: MOD A Additional documentation: Pt combed hair while seated in front of mirror. Pt able to raise L arm toapprox 80 degrees ABD and apply aerosol deodorant. MAX for applying under R arm. UE Dressing Location of UE dressing: Sitting in manual wheelchair Tasks completed: Pullover shirt and Undershirt Overall assist level: MIN A Additional documentation: SET UP with L arm hole open. Verbal cues for rasheed dressing. MIN A to pullshirt down/adjust. LE Dressing (Underwear / Pants) Location of LE dressing (Underwear / Pants): Sitting in manual wheelchair and Standing at grab bar Tasks completed: Elastic waist pants and Incontinence briefs as underwear Overall assist level: SUBSTANTIAL / MAXIMAL ASSISTANCE: MORE THAN HALF (50% - 99%) Additional documentation: Requires assist to initially get on L foot. Pt able to don R foot and pant/brief up to thighs. MAX to pull up over waist. Putting On / Taking Off Footwear Location of putting on / taking off footwear: Sitting in manual wheelchair Tasks completed: Sock(s) and Slip-on shoe(s) Overall assist level: SUBSTANTIAL / MAXIMAL ASSISTANCE: MORE THAN HALF (50% - 99%) Additional documentation: Tube socks were extremely tight . MAX to don L slip on shoe. Pt able to don R shoe. TOILETING LOCATION: SITTING ON RAISED TOILET SEAT no ARMS TASKS COMPLETED: HYGIENE MANAGEMENT, CLOTHING MANAGEMENT PRE-TOILETING, and CLOTHING MANAGEMENT POST-TOILETING OVERALL ASSIST LEVEL: SUBSTANTIAL / MAXIMAL ASSISTANCE: MORE THAN HALF (50% - 99%) ADDITIONAL DOCUMENTATION: Unaware he had soiled brief. (Given miralax) MOBILITY: Transfers: Supine to sit to EOB with CGA and HOB. Sits unsupported EOB with supervision. MIN/CGA for pivot from EOB to wc using rasheed walker. TOILET TRANSFER LOCATION: RAISED TOILET SEAT no ARMS OVERALL ASSIST LEVEL: SUBSTANTIAL / MAXIMAL ASSISTANCE: MORE THAN HALF (50% - 99%) DEVICE: GRAB BARS ADDITIONAL DOCUMENTATION: to/from toilet to wc. MAX A for all 3 components. HEARING / SPEECH / VISION: Expression of ideas and wants Overall assist level: WITHOUT DIFFICULTY Understanding verbal and non-verbal content Overall assist level: UNDERSTANDS Caregiver present (yes / no): No Education & training provided: Role of OT, OT plan of care, ADL training, Functional transfer training, and Safety education ASSESSMENT: Activity tolerance / response to OT: GOOD PARTICIPATION, GOOD MOTIVATION, and RECEPTIVE TO EDUCATION / TRAINING Progress towards goals: Please refer to Care Plan from this date for progress towards individual goals. PLAN: Therapy Plan: Please refer to most recent Inpatient Rehabilitation Team Conference note for discharge plan, including location, recommended level of supervision, and arrangements. Frequency of therapy: BID SESSIONS 5 DAYS / WEEK TO ADDRESS PREVIOUSLY ESTABLISHED DEFICITS AND GOALS [facility] 12/27/23 * Ella Carter, NUMEROLOGIST - 12/27/2023 9:11 AM CDT SPEECH LANGUAGE PATHOLOGY PROGRESS NOTE Patient's Name: Gunjan Gtz Jr. : 1945 Age: 78 y.o. Time In: 8:56 Time Out: 9:21 Patient Active Problem List Diagnosis Primary osteoarthritis of both knees Subchondral insufficiency fracture of condyle of left femur (CMS/HCC) (HCC) Closed fracture of left tibial plateau with delayed healing Closed fracture of right tibial plateau with delayed healing Closed nondisplaced osteochondral fracture of left patella with delayed healing Closed osteochondral fracture of patella, right, with delayed healing, subsequent encounter Complex tear of medial meniscus of right knee as current injury Complex tear of medial meniscus of left knee as current injury Goiter Breast pain, right Cataract of right eye Diplopia Esotropia Hypertropia of right eye Skin lesion of breast Edema Intermittent claudication (HCC) Iron deficiency anemia Peripheral vascular disease (HCC) Pain due to total right knee replacement (CMS/HCC) (HCC) Hamstring tendinitis of right thigh Quadriceps weakness Idiopathic peripheral neuropathy Abnormality of gait and mobility Hx of total knee replacement, right Neuropathy (CMS/HCC) 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 Biceps tendinitis of left upper extremity Tear of left glenoid labrum Coffee ground emesis Upper GI bleed Acquired hypothyroidism Acute blood loss anemia Lung nodule Nocturnal cough Hiatal hernia Infrarenal abdominal aortic aneurysm (AAA) without rupture (HCC) Acute CVA (cerebrovascular accident) (HCC) Moderate malnutrition (CMS/HCC) Past Medical History: Diagnosis Date Acute gastric [...] delayed healing, subsequent encounter Clotting disorder (CMS/HCC) (HCC) Complex tear of medial meniscus of left knee as current injury Complex tear of medial meniscus of right knee as current injury Cramps of lower extremity Diverticulitis of colon Easy bruisability Fatigue Frequent urination Gastroesophageal reflux disease GERD Hypothyroidism Incontinence of urine Muscle weakness Osteoarthritis Osteoarthritis Peptic ulcer Peptic ulcer disease Seizures (HCC) 1997 last seizure in 1997 SOB (shortness of breath) on exertion Subchondral insufficiency fracture of condyle of left femur (CMS/HCC) ([facility]) Vertigo Vision changes Visual disturbance hx of double vision, corrective lenses Past Surgical History: Procedure Laterality Date CATARACT EXTRACTION, BILATERAL Bilateral 2018 HERNIA REPAIR 1979 Hiatal Hernia repair KNEE ARTHROSCOPY Bilateral THYROIDECTOMY 12/27/2019 SUBJECTIVE MENTAL STATUS: Awake, alert, resting in bed. Pleasant and cooperative. PAIN: Pre Therapy Pain Level:0/10 Pain Location:NA Pain Intervention:NA Post Therapy Pain Level/Response to Intervention:0/10 OBJECTIVE PRECAUTIONS: Fall precautions SWALLOWING: Patient tolerating regular diet with thin liquids COGNITION: Cognitive deficits in short-term memory, insight, and problem solving/reasoning. Oriented x4. COMMUNICATION: Mild dysarthria TREATMENT ACTIVITIES: Recall daily events/recent activities with 100% accuracy Oral motor exercises x10 each EDUCATION: PATIENT/FAMILY EDUCATION: Discussed purpose of speech activities Response to Education: Verbalized understanding ASSESSMENT Activity Tolerance/Response to S.T.: Tolerated therapy with no complaints Barriers to learning: Cognition, Vision Current status: Patient able to recall events prior to hospitalization/admission with 100% accuracy. Progress toward goals: Patient continues to progress toward previously set goals which remain appropriate at this time. PLAN Multi-Disciplinary Problems (from Speech Therapy) Active Problems Problem: [facility] Start Date: 12/16/23 Goal Start Date Expected End Date End Date Formerly [facility] 1 12/16/23 12/23/23 -- Goal Details: Patient to perform short term memory tasks using compensatory strategies with 80% accuracy. Goal Start Date Expected End Date End Date Formerly [facility] 2 12/16/23 12/23/23 -- Goal Details: Patient to perform functional problem solving/reasoning tasks with 80% accuracy. Goal Start Date Expected End Date End Date Formerly [facility] 3 12/16/23 12/23/23 -- Goal Details: Patient to attend to left visual field 80% of the time given 2-3 verbal prompts. Goal Start Date Expected End Date End Date Formerly [facility] 4 12/16/23 12/23/23 -- Goal Details: Patient's speech to be 90% intelligible during conversational tasks utilizing compensatory strategies. Frequency of Treatment: BID 5xs weekly Recommendations: Home with 24 hour supervision If this is the last note, consider this the discharge summary. * Sheryl Powell, DIRECTOR OF RECRUITING - 12/25/2023 10:55 AM CDT Physical Therapy PT PROGRESS NOTE Gunjan Gtz Jr. 78 y.o. 1945 Past Medical History: Diagnosis Date Acute gastric [...] delayed healing, subsequent encounter Clotting disorder (CMS/HCC) (HCC) Complex tear of medial meniscus of left knee as current injury Complex tear of medial meniscus of right knee as current injury Cramps of lower extremity Diverticulitis of colon Easy bruisability Fatigue Frequent urination Gastroesophageal reflux disease GERD Hypothyroidism Incontinence of urine Muscle weakness Osteoarthritis Osteoarthritis Peptic ulcer Peptic ulcer disease Seizures (HCC) 1997 last seizure in 1997 SOB (shortness of breath) on exertion Subchondral insufficiency fracture of condyle of left femur (CMS/HCC) (HCC) Vertigo Vision changes Visual disturbance hx of double vision, corrective lenses Past Surgical History: Procedure Laterality Date CATARACT EXTRACTION, BILATERAL Bilateral 2018 HERNIA REPAIR 1980 Hiatal Hernia repair KNEE ARTHROSCOPY Bilateral THYROIDECTOMY 12/27/2019 Patient Active Problem List Diagnosis Primary osteoarthritis of both knees Subchondral insufficiency fracture of condyle of left femur (CMS/HCC) (HCC) Closed fracture of left tibial plateau with delayed healing Closed fracture of right tibial plateau with delayed healing Closed nondisplaced osteochondral fracture of left patella with delayed healing Closed osteochondral fracture of patella, right, with delayed healing, subsequent encounter Complex tear of medial meniscus of right knee as current injury Complex tear of medial meniscus of left knee as current injury Goiter Breast pain, right Cataract of right eye Diplopia Esotropia Hypertropia of right eye Skin lesion of breast Edema Intermittent claudication (HCC) Iron deficiency anemia Peripheral vascular disease (HCC) Pain due to total right knee replacement (CMS/HCC) (HCC) Hamstring tendinitis of right thigh Quadriceps weakness Idiopathic peripheral neuropathy Abnormality of gait and mobility Hx of total knee replacement, right Neuropathy (CMS/HCC) 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 Biceps tendinitis of left upper extremity Tear of left glenoid labrum Coffee ground emesis Upper GI bleed Acquired hypothyroidism Acute blood loss anemia Lung nodule Nocturnal cough Hiatal hernia Infrarenal abdominal aortic aneurysm (AAA) without rupture (HCC) Acute CVA (cerebrovascular accident) (HCC) Moderate malnutrition (CMS/HCC) TIME IN: 1100 TIME OUT: 1149 SUBJECTIVE Patient reports brace for his knee didn't really help and his took his shoes home MENTAL STATUS/ORIENTATION: Alert and oriented x4 PAIN: Pre-therapy pain level: 0/10 Pain location: left knee with rom ex Pain intervention: therapy to emil Post-therapy pain level/response to intervention: no c/o pain OBJECTIVE PRECAUTIONS: fall risk APPEARANCE/POSTURE: sitting in w/c alarm on and in place MOBILITY DOCUMENTATION: Bed Mobility: n/a Transfers: sit to/from stand min assist, w/c to/from nu step seat and w/c to bed side recliner min assist stand pivot Ambulation: amb 20' x 1 10' x 2 rasheed aid min assist, slow gertrudis, decreased step length, step to pattern Stairs: n/a Wheelchair management & propulsion: n/a TREATMENT: Sitting le ex ex x 15 reps Standing le ex x 10 reps left le hip flexion and hip abd 1 set , attempted hip flexion on the rightunable to WB on right le to perform also performed partial squats 10 reps x 2 sets Nu step load 5, 51/2 minutes 158 steps Appearance/Posture at end of treatment session: sitting in bed side recliner alarm on and in place,call light next to patient EDUCATION: PATIENT/FAMILY EDUCATION: educated patient on le rom ex, transfers and amb Response to Education: demonstrated understanding, needs reinforcement, and verbalizes understanding ASSESSMENT Activity tolerance/response to PT: patient emil tx session with some c/o fatigue and left knee pain with amb and le ex Barriers to learning: Physical and Cognitive Barriers to discharge: Pain, Limited family support, No caregiver support, Confusion, Cognitive deficit, Decreased motivation, Limited insight into deficits, Unrealistic expectations, Decreased endurance, Decreased proprioception, Upper extremity weakness, Lower extremity weakness, and Stairs at home Patient continues progressing toward previously set goals which remain appropriate at this time. PLAN Patient to be seen bid 5x/week to address previously established deficits and goals. * Martínez Calvo COTA - 12/25/2023 10:00 AM CDT Occupational Therapy NOTE TYPE: OT TREATMENT ([facility] BEDSIDE SESSION) Patient's Name: Gunjan Gtz Jr. Age / Sex: 78 y.o. / male Room: [place] [id number] : 1945 Date: 12/25/23 Time In: 1000 Time Out: 1100 Patient Active Problem List Diagnosis Primary osteoarthritis of both knees Subchondral insufficiency fracture of condyle of left femur (CMS/HCC) ([facility]) Closed fracture of left tibial plateau with delayed healing Closed fracture of right tibial plateau with delayed healing Closed nondisplaced osteochondral fracture of left patella with delayed healing Closed osteochondral fracture of patella, right, with delayed healing, subsequent encounter Complex tear of medial meniscus of right knee as current injury Complex tear of medial meniscus of left knee as current injury Goiter Breast pain, right Cataract of right eye Diplopia Esotropia Hypertropia of right eye Skin lesion of breast Edema Intermittent claudication (HCC) Iron deficiency anemia Peripheral vascular disease (HCC) Pain due to total right knee replacement (CMS/HCC) (HCC) Hamstring tendinitis of right thigh Quadriceps weakness Idiopathic peripheral neuropathy Abnormality of gait and mobility Hx of total knee replacement, right Neuropathy (CMS/HCC) 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 Biceps tendinitis of left upper extremity Tear of left glenoid labrum Coffee ground emesis Upper GI bleed Acquired hypothyroidism Acute blood loss anemia Lung nodule Nocturnal cough Hiatal hernia Infrarenal abdominal aortic aneurysm (AAA) without rupture (HCC) Acute CVA (cerebrovascular accident) (HCC) Moderate malnutrition (CMS/HCC) Past Medical History: Diagnosis Date Acute gastric [...] with delayed healing, subsequent encounter Clotting disorder ([facility]) ([facility]) Complex tear of medial meniscus of left knee as current injury Complex tear of medial meniscus of right knee as current injury Cramps of lower extremity Diverticulitis of colon Easy bruisability Fatigue Frequent urination Gastroesophageal reflux disease GERD Hypothyroidism Incontinence of urine Muscle weakness Osteoarthritis Osteoarthritis Peptic ulcer Peptic ulcer disease Seizures ([facility]) 1997 last seizure in 1997 SOB (shortness of breath) on exertion Subchondral insufficiency fracture of condyle of left femur ([facility]) ([facility]) Vertigo Vision changes Visual disturbance hx of double vision, corrective lenses Past Surgical History: Procedure Laterality Date CATARACT EXTRACTION, BILATERAL Bilateral 2018 HERNIA REPAIR 1979 Hiatal Hernia repair KNEE ARTHROSCOPY Bilateral THYROIDECTOMY 12/27/2019 Precautions (Including Weight-Bearing): Fall risk SUBJECTIVE: Patient stated I've been here awhile Therapy Pain: Pre-therapy pain level: 0 / 10 Pain location: No pain - Location N/A Pain intervention(s): No pain - Intervention N/A Post-therapy pain level: 0 / 10 Pain scale used: 0-10 SCALE OBJECTIVE: APPEARANCE: Presentation upon OT arrival: Patient Sitting in manual wheelchair at bedside Presentation upon OT departure: PATIENT Sitting in manual wheelchair with staff assistance Bed / chair alarm in place and activated upon OT departure: Yes Call light within arms reach of patient at end of session: Yes Completed patient handoff and notified Physical Therapist / Physical Therapist Human Resources Clerk, name: Sheryl, of patient's location and functional status upon completion of session. COGNITIVE / PERCEPTUAL: WFL SELF CARE: Oral Hygiene Location of oral hygiene: Sitting in bedside chair / recliner Overall assist level: SET-UP / CLEAN-UP ASSISTANCE Additional documentation: N/A Other Grooming Tasks Location of other grooming tasks: Sitting in bedside chair / recliner Tasks completed: WASHING HANDS Overall assist level: SET-UP / CLEAN-UP ASSISTANCE Additional documentation: N/A MOBILITY: HEARING / SPEECH / VISION: Expression of ideas and wants Overall assist level: WITHOUT DIFFICULTY Understanding verbal and non-verbal content Overall assist level: UNDERSTANDS UE THERAPEUTIC EXERCISES: EXERCISE TYPE: B UE SROM EXERCISE(S) COMPLETED WITH NUMBER OF REPETITIONS: SHOULDER FLEXION 10 , SHOULDER ABDUCTION 10, SHOULDER ADDUCTION 10, SHOULDER INTERNAL ROTATION 10, SHOULDER EXTERNAL ROTATION 10, CHEST PRESS 10, ELBOW FLEXION 10, and ELBOW EXTENSION 10 NUMBER OF SETS: 2 ASSIST LEVEL: supervision/touching assistance LOCATION OF COMPLETION: seated in recliner TOLERANCE: good tolerance with rest breaks as needed Patient was presented with a AM/PM weekly pill supply chain planner and 3 simulated medications with various instructions on each pill bottle. Patient instructed to use the instructions on each pill bottle to fill in the supply chain planner for the entire week. Patient was able to complete the task with 33 % accuracy, requiring SPV assist and MIN vcs. Patient was able to open each bottle and manipulate the simulated pills with MIN assist. Patient educated on compensatory strategies for task including flipping pill bottle caps . At this time patient needs SPV assist with medication management. Caregiver present (yes / no): No Education & training provided: Role of OT, OT plan of care, ADL training, Safety education, UE home exercise program, and Medication management ASSESSMENT: Activity tolerance / response to OT: GOOD PARTICIPATION, GOOD MOTIVATION, and RECEPTIVE TO EDUCATION / TRAINING Progress towards goals: Please refer to Care Plan from this date for progress towards individual goals. PLAN: Therapy Plan: Please refer to most recent Inpatient Rehabilitation Team Conference note for discharge plan, including location, recommended level of supervision, and arrangements. Frequency of therapy: BID SESSIONS 5 DAYS / WEEK TO ADDRESS PREVIOUSLY ESTABLISHED DEFICITS AND GOALS ANGI Conklin 12/25/23 * Madie Oneill, DIRECTOR OF RECRUITING - 12/24/2023 3:08 PM CDT Physical Therapy PT PROGRESS NOTE Gunjan Gtz Jr. 78 y.o. 1945 Past Medical History: Diagnosis Date Acute gastric [...] delayed healing, subsequent encounter Clotting disorder (CMS/HCC) (HCC) Complex tear of medial meniscus of left knee as current injury Complex tear of medial meniscus of right knee as current injury Cramps of lower extremity Diverticulitis of colon Easy bruisability Fatigue Frequent urination Gastroesophageal reflux disease GERD Hypothyroidism Incontinence of urine Muscle weakness Osteoarthritis Osteoarthritis Peptic ulcer Peptic ulcer disease Seizures (HCC) 1997 last seizure in 1997 SOB (shortness of breath) on exertion Subchondral insufficiency fracture of condyle of left femur (CMS/HCC) (HCC) Vertigo Vision changes Visual disturbance hx of double vision, corrective lenses Past Surgical History: Procedure Laterality Date CATARACT EXTRACTION, BILATERAL Bilateral 2018 HERNIA REPAIR 1980 Hiatal Hernia repair KNEE ARTHROSCOPY Bilateral THYROIDECTOMY 12/27/2019 Patient Active Problem List Diagnosis Primary osteoarthritis of both knees Subchondral insufficiency fracture of condyle of left femur (CMS/HCC) (HCC) Closed fracture of left tibial plateau with delayed healing Closed fracture of right tibial plateau with delayed healing Closed nondisplaced osteochondral fracture of left patella with delayed healing Closed osteochondral fracture of patella, right, with delayed healing, subsequent encounter Complex tear of medial meniscus of right knee as current injury Complex tear of medial meniscus of left knee as current injury Goiter Breast pain, right Cataract of right eye Diplopia Esotropia Hypertropia of right eye Skin lesion of breast Edema Intermittent claudication (HCC) Iron deficiency anemia Peripheral vascular disease (HCC) Pain due to total right knee replacement (CMS/HCC) ([facility]) Hamstring tendinitis of right thigh Quadriceps weakness Idiopathic peripheral neuropathy Abnormality of gait and mobility Hx of total knee replacement, right Neuropathy (CMS/HCC) 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 Biceps tendinitis of left upper extremity Tear of left glenoid labrum Coffee ground emesis Upper GI bleed Acquired hypothyroidism Acute blood loss anemia Lung nodule Nocturnal cough Hiatal hernia Infrarenal abdominal aortic aneurysm (AAA) without rupture ([facility]) Acute CVA (cerebrovascular accident) ([facility]) Moderate malnutrition (CMS/HCC) TIME IN: 235 TIME OUT: 1520 SUBJECTIVE I got a little. Patient referring to movement in index finger and thumb during OT activities. MENTAL STATUS/ORIENTATION: Alert and oriented x4 PAIN: Pre-therapy pain level: none Pain location: L knee during activity - resolves with rest Pain intervention: mobility performed, rest Post-therapy pain level/response to intervention: none OBJECTIVE PRECAUTIONS: fall APPEARANCE/POSTURE: present in therapy gym, seated in W/C, chair alarm active MOBILITY DOCUMENTATION: Bed Mobility: NT Transfers: sit <> stand with MIN assist from W/C to rasheed-bar and mat to rasheed-aide Second pivot trial from W/C to recliner with rasheed-aide, MIN assist and v/c regarding cane placement. Ambulation: 8' including steps to transfer. Patient initially reaching for armrest of w/c vs using cane and turning fully with buttocks toward chair. Patient with MOD assist to maintain balance, correct posture and complete transfer safely. Stairs: NT Wheelchair management & propulsion: 70' forward with L turns. Patient with L neglect. Decreasedattention, decreased command following. TREATMENT: Patient standing at rasheed-bar with yellow thera band and MOD resistance. 2 sets of 8 reps terminal knee extension on L LE. V/C regarding posture, patient compensates with forward bend. FAIR + balance.MIN + frequent v/c. Patient performs seated reaching out of SHANA x 9 trials of varied distances. Patient places / retrieves ball from atop traffic cones. 9 reaches toward the L side; patient able to full rest on L UE andbring self back to midline. 6 reaches toward the R without difficulty. SBA Appearance/Posture at end of treatment session: returned to room, seated in recliner, call light inreach, chair alarm active, family member present EDUCATION: PATIENT/FAMILY EDUCATION: safety, balance, strengthening, W/C mobility, transfers Response to Education: needs reinforcement ASSESSMENT Activity tolerance/response to PT: FAIR Patient resists following instructions to complete activities. Patient with decreased insight into his deficits. Barriers to learning: unchanged from AM Barriers to discharge: unchanged from AM Patient continues progressing toward previously set goals which remain appropriate at this time. PLAN Patient to be seen bid 5x/week to address previously established deficits and goals. * Rosalia Marinelli, OLGA - 12/24/2023 1:45 PM CDT Occupational Therapy NOTE TYPE: OT TREATMENT ([facility] DEPARTMENT SESSION) PATIENT'S NAME: Gunjan Gtz Jr. AGE / SEX: 78 y.o. / male ROOM: [place] [id number] : 1945 DATE: 12/24/23 TIME IN: 1345 TIME OUT: 1415 Patient Active Problem List Diagnosis Primary osteoarthritis of both knees Subchondral insufficiency fracture of condyle of left femur (CMS/HCC) (HCC) Closed fracture of left tibial plateau with delayed healing Closed fracture of right tibial plateau with delayed healing Closed nondisplaced osteochondral fracture of left patella with delayed healing Closed osteochondral fracture of patella, right, with delayed healing, subsequent encounter Complex tear of medial meniscus of right knee as current injury Complex tear of medial meniscus of left knee as current injury Goiter Breast pain, right Cataract of right eye Diplopia Esotropia Hypertropia of right eye Skin lesion of breast Edema Intermittent claudication ([facility]) Iron deficiency anemia Peripheral vascular disease ([facility]) Pain due to total right knee replacement (CMS/HCC) ([facility]) Hamstring tendinitis of right thigh Quadriceps weakness Idiopathic peripheral neuropathy Abnormality of gait and mobility Hx of total knee replacement, right Neuropathy (CMS/[facility]) 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 Biceps tendinitis of left upper extremity Tear of left glenoid labrum Coffee ground emesis Upper GI bleed Acquired hypothyroidism Acute blood loss anemia Lung nodule Nocturnal cough Hiatal hernia Infrarenal abdominal aortic aneurysm (AAA) without rupture ([facility]) Acute CVA (cerebrovascular accident) ([facility]) Moderate malnutrition (CMS/[facility]) Past Medical History: Diagnosis Date Acute gastric ulcer without hemorrhage or perforation Ulcer, gastric, acute - (Added by TW Conv) Alzheimer's dementia ([facility]) Asthma Back pain Cataract Closed fracture of left tibial plateau with delayed healing Closed fracture of right tibial plateau with delayed healing Closed nondisplaced osteochondral fracture of left patella with delayed healing Closed osteochondral fracture of patella, right, with delayed healing, subsequent encounter Clotting disorder (CMS/[facility]) ([facility]) Complex tear of medial meniscus of left knee as current injury Complex tear of medial meniscus of right knee as current injury Cramps of lower extremity Diverticulitis of colon Easy bruisability Fatigue Frequent urination Gastroesophageal reflux disease GERD Hypothyroidism Incontinence of urine Muscle weakness Osteoarthritis Osteoarthritis Peptic ulcer Peptic ulcer disease Seizures ([facility]) 1997 last seizure in 1997 SOB (shortness of breath) on exertion Subchondral insufficiency fracture of condyle of left femur (CMS/HCC) ([facility]) Vertigo Vision changes Visual disturbance hx of double vision, corrective lenses Past Surgical History: Procedure Laterality Date CATARACT EXTRACTION, BILATERAL Bilateral 2018 HERNIA REPAIR 1980 Hiatal Hernia repair KNEE ARTHROSCOPY Bilateral THYROIDECTOMY 12/27/2019 PRECAUTIONS (INCLUDING WEIGHT-BEARING): Fall risk and Bed / chair alarm SUBJECTIVE: I feel something THERAPY PAIN: PRE-THERAPY PAIN LEVEL: 0 / 10 PAIN LOCATION: No pain - Location N/A PAIN INTERVENTION(S): No pain - Intervention N/A POST-THERAPY PAIN LEVEL: 0 / 10 PAIN SCALE USED: 0-10 SCALE OBJECTIVE: APPEARANCE: PRESENTATION UPON OT ARRIVAL: PATIENT Sitting in manual wheelchair at bedside PRESENTATION UPON OT DEPARTURE: PATIENT Sitting in manual wheelchair with staff assistance BED / CHAIR ALARM IN PLACE AND ACTIVATED UPON OT DEPARTURE: Yes CALL LIGHT WITHIN ARMS REACH OF PATIENT AT END OF SESSION: No - due to patient taken to physical therapy gym COMPLETED PATIENT HANDOFF AND NOTIFIED Physical Therapist / Physical Therapist Human Resources Clerk, NAME: Marcia, OF PATIENT'S LOCATION AND FUNCTIONAL STATUS UPON COMPLETION OF SESSION COGNITIVE / PERCEPTUAL: Alert and oriented to conversation UE THERAPEUTIC EXERCISES: EXERCISE TYPE: Mirror box exercises ASSIST LEVEL: physical assistance: partial/moderate assistance LOCATION OF COMPLETION: seated at table TOLERANCE: Patient participated in mirror box exercises and mental imagery. Patient placed LUE inside of box and completed exercises with RUE while looking into mirror. Patient instructed to think about LUE moving while RUE was moving. Patient observed to have trace movement in L forearm and slightmovement in L thumb and 2nd digit. Patient requires min assist to stabilize L elbow during activity. CAREGIVER PRESENT (YES / NO): No EDUCATION & TRAINING PROVIDED: Role of OT, OT plan of care, and UE home exercise program ASSESSMENT: ACTIVITY TOLERANCE / RESPONSE TO OT: GOOD PARTICIPATION, GOOD MOTIVATION, and RECEPTIVE TO EDUCATION / TRAINING PROGRESS TOWARDS GOALS: PLEASE REFER TO CARE PLAN FROM THIS DATE FOR PROGRESS TOWARDS INDIVIDUAL GOALS PLAN: PLEASE REFER TO MOST RECENT INPATIENT REHABILITATION TEAM CONFERENCE NOTE FOR DISCHARGE PLAN, INCLUDING LOCATION, RECOMMENDED LEVEL OF SUPERVISION AND ARRANGEMENTS. FREQUENCY OF THERAPY: BID SESSIONS 5 DAYS / WEEK TO ADDRESS PREVIOUSLY ESTABLISHED DEFICITS AND GOALS Rosalia Marinelli OT 12/24/23 * Paresh Prieto, NUMEROLOGIST - 12/24/2023 1:39 PM CDT SPEECH LANGUAGE PATHOLOGY PROGRESS NOTE Patient's Name: Gunjan Gtz Jr. : 1945 Age: 78 y.o. Time In: 13:08 Time Out: 13:35 Patient Active Problem List Diagnosis Primary osteoarthritis of both knees Subchondral insufficiency fracture of condyle of left femur (CMS/HCC) (HCC) Closed fracture of left tibial plateau with delayed healing Closed fracture of right tibial plateau with delayed healing Closed nondisplaced osteochondral fracture of left patella with delayed healing Closed osteochondral fracture of patella, right, with delayed healing, subsequent encounter Complex tear of medial meniscus of right knee as current injury Complex tear of medial meniscus of left knee as current injury Goiter Breast pain, right Cataract of right eye Diplopia Esotropia Hypertropia of right eye Skin lesion of breast Edema Intermittent claudication ([facility]) Iron deficiency anemia Peripheral vascular disease (HCC) Pain due to total right knee replacement (CMS/HCC) ([facility]) Hamstring tendinitis of right thigh Quadriceps weakness Idiopathic peripheral neuropathy Abnormality of gait and mobility Hx of total knee replacement, right Neuropathy (CMS/HCC) 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 Biceps tendinitis of left upper extremity Tear of left glenoid labrum Coffee ground emesis Upper GI bleed Acquired hypothyroidism Acute blood loss anemia Lung nodule Nocturnal cough Hiatal hernia Infrarenal abdominal aortic aneurysm (AAA) without rupture ([facility]) Acute CVA (cerebrovascular accident) ([facility]) Moderate malnutrition ([facility]) Past Medical History: Diagnosis Date Acute gastric ulcer without hemorrhage or perforation Ulcer, gastric, acute - (Added by TW Conv) Alzheimer's dementia ([facility]) Asthma Back pain Cataract Closed fracture of left tibial plateau with delayed healing Closed fracture of right tibial plateau with delayed healing Closed nondisplaced osteochondral fracture of left patella with delayed healing Closed osteochondral fracture of patella, right, with delayed healing, subsequent encounter Clotting disorder ([facility]/HCC) ([facility]) Complex tear of medial meniscus of left knee as current injury Complex tear of medial meniscus of right knee as current injury Cramps of lower extremity Diverticulitis of colon Easy bruisability Fatigue Frequent urination Gastroesophageal reflux disease GERD Hypothyroidism Incontinence of urine Muscle weakness Osteoarthritis Osteoarthritis Peptic ulcer Peptic ulcer disease Seizures ([facility]) 1997 last seizure in 1997 SOB (shortness of breath) on exertion Subchondral insufficiency fracture of condyle of left femur ([facility]/HCC) ([facility]) Vertigo Vision changes Visual disturbance hx of double vision, corrective lenses Past Surgical History: Procedure Laterality Date CATARACT EXTRACTION, BILATERAL Bilateral 2018 HERNIA REPAIR 1979 Hiatal Hernia repair KNEE ARTHROSCOPY Bilateral THYROIDECTOMY 12/27/2019 SUBJECTIVE MENTAL STATUS: Patient awake and cooperative, sitting up in wheelchair. Reports being uncomfortablein the wheelchair. RN notified and came into session to reposition patient. PAIN: Pre Therapy Pain Level: 0/10 Pain Location: N/A Pain Intervention: N/A Post Therapy Pain Level/Response to Intervention: 0/10 OBJECTIVE PRECAUTIONS: Fall precautions SWALLOWING: Patient continues to tolerate regular consistency diet/thin liquids. COGNITION: Decreased short term memory, insight and problem solving/reasoning. COMMUNICATION: Mild dysarthric speech TREATMENT ACTIVITIES: Recall steps for performing sit to stand with 80% accuracy Functional memory: Paragraph facts with 60% accuracy independently and 75% with verbal cues. EDUCATION: PATIENT/FAMILY EDUCATION: Reviewed progress with patient Response to Education: Understanding verbalized ASSESSMENT Activity Tolerance/Response to S.T.: Tolerated speech therapy session with no complaints Barriers to learning: Cognition, Vision Current status: Patient with mild/moderate decrease with short term memory. Able to recall daily activities accurately. Progress toward goals: Patient continues to progress toward previously set goals which remain appropriate at this time. PLAN Multi-Disciplinary Problems (from Speech Therapy) Active Problems Problem: [facility] Start Date: 12/16/23 Goal Start Date Expected End Date End Date Formerly [facility] 1 12/16/23 12/23/23 -- Goal Details: Patient to perform short term memory tasks using compensatory strategies with 80% accuracy. Goal Start Date Expected End Date End Date Formerly [facility] 2 12/16/23 12/23/23 -- Goal Details: Patient to perform functional problem solving/reasoning tasks with 80% accuracy. Goal Start Date Expected End Date End Date Formerly [facility] 3 12/16/23 12/23/23 -- Goal Details: Patient to attend to left visual field 80% of the time given 2-3 verbal prompts. Goal Start Date Expected End Date End Date Formerly [facility] 4 12/16/23 12/23/23 -- Goal Details: Patient's speech to be 90% intelligible during conversational tasks utilizing compensatory strategies. Frequency of Treatment: BID, 5xs weekly Recommendations: Recommend home with 24 hour supervision at discharge. If this is the last note, consider this the discharge summary. * Paresh Prieto SLP - 12/24/2023 12:55 PM CDT SPEECH LANGUAGE PATHOLOGY PROGRESS NOTE Patient's Name: Gunjan Gtz Jr. : 1945 Age: 78 y.o. Time In: 9:35 Time Out: 10:00 Patient Active Problem List Diagnosis Primary osteoarthritis of both knees Subchondral insufficiency fracture of condyle of left femur (CMS/HCC) ([facility]) Closed fracture of left tibial plateau with delayed healing Closed fracture of right tibial plateau with delayed healing Closed nondisplaced osteochondral fracture of left patella with delayed healing Closed osteochondral fracture of patella, right, with delayed healing, subsequent encounter Complex tear of medial meniscus of right knee as current injury Complex tear of medial meniscus of left knee as current injury Goiter Breast pain, right Cataract of right eye Diplopia Esotropia Hypertropia of right eye Skin lesion of breast Edema Intermittent claudication ([facility]) Iron deficiency anemia Peripheral vascular disease ([facility]) Pain due to total right knee replacement (CMS/HCC) ([facility]) Hamstring tendinitis of right thigh Quadriceps weakness Idiopathic peripheral neuropathy Abnormality of gait and mobility Hx of total knee replacement, right Neuropathy (CMS/HCC) 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 Biceps tendinitis of left upper extremity Tear of left glenoid labrum Coffee ground emesis Upper GI bleed Acquired hypothyroidism Acute blood loss anemia Lung nodule Nocturnal cough Hiatal hernia Infrarenal abdominal aortic aneurysm (AAA) without rupture ([facility]) Acute CVA (cerebrovascular accident) ([facility]) Moderate malnutrition (CMS/[facility]) Past Medical History: Diagnosis Date Acute gastric ulcer without hemorrhage or perforation Ulcer, gastric, acute - (Added by TW Conv) Alzheimer's dementia ([facility]) Asthma Back pain Cataract Closed fracture of left tibial plateau with delayed healing Closed fracture of right tibial plateau with delayed healing Closed nondisplaced osteochondral fracture of left patella with delayed healing Closed osteochondral fracture of patella, right, with delayed healing, subsequent encounter Clotting disorder (CMS/HCC) ([facility]) Complex tear of medial meniscus of left knee as current injury Complex tear of medial meniscus of right knee as current injury Cramps of lower extremity Diverticulitis of colon Easy bruisability Fatigue Frequent urination Gastroesophageal reflux disease GERD Hypothyroidism Incontinence of urine Muscle weakness Osteoarthritis Osteoarthritis Peptic ulcer Peptic ulcer disease Seizures ([facility]) 1997 last seizure in 1997 SOB (shortness of breath) on exertion Subchondral insufficiency fracture of condyle of left femur (CMS/HCC) ([facility]) Vertigo Vision changes Visual disturbance hx of double vision, corrective lenses Past Surgical History: Procedure Laterality Date CATARACT EXTRACTION, BILATERAL Bilateral 2018 HERNIA REPAIR 1980 Hiatal Hernia repair KNEE ARTHROSCOPY Bilateral THYROIDECTOMY 12/27/2019 SUBJECTIVE MENTAL STATUS: Awake and cooperative, resting in recliner. Reports sleeping better last night. PAIN: Pre Therapy Pain Level: 0/10 Pain Location: N/A Pain Intervention: N/A Post Therapy Pain Level/Response to Intervention: 0/10 OBJECTIVE PRECAUTIONS: Fall SWALLOWING: Patient continues to tolerate regular consistency diet/thin liquids. COGNITION: Decreased short term memory, thought organization and insight. COMMUNICATION: Mild dysarthric speech; Patient able to verbalize wants/needs accurately TREATMENT ACTIVITIES: Recall daily activities/recent events with 100% accuracy Provide appropriate solutions to discharge situations with 80% accuracy EDUCATION: PATIENT/FAMILY EDUCATION: Reviewed discharge recommendations with patient Response to Education: Needs reinforcement, Verbalized understanding ASSESSMENT Activity Tolerance/Response to S.T.: Tolerated speech therapy session with no complaints Barriers to learning: Cognition, Vision Current status: Patient's cognition continues to improve. Able to perform short term recall tasks and functional problem solving tasks with 80-100% accuracy. Progress toward goals: Patient continues to progress toward previously set goals which remain appropriate at this time. PLAN Multi-Disciplinary Problems (from Speech Therapy) Active Problems Problem: [facility]OLOG[facility]: 12/16/23 Goal Start Date Expected End Date End Date Formerly [facility] 1 12/16/23 12/23/23 -- Goal Details: Patient to perform short term memory tasks using compensatory strategies with 80% accuracy. Goal Start Date Expected End Date End Date Formerly [facility] 2 12/16/23 12/23/23 -- Goal Details: Patient to perform functional problem solving/reasoning tasks with 80% accuracy. Goal Start Date Expected End Date End Date Formerly [facility] 3 12/16/23 12/23/23 -- Goal Details: Patient to attend to left visual field 80% of the time given 2-3 verbal prompts. Goal Start Date Expected End Date End Date Formerly [facility] 4 12/16/23 12/23/23 -- Goal Details: Patient's speech to be 90% intelligible during conversational tasks utilizing compensatory strategies. Frequency of Treatment: BID, 5xs weekly Recommendations: Recommend home with supervision at discharge. If this is the last note, consider this the discharge summary. * Becky Montana MD - 12/24/2023 11:23 AM CDT INPATIENT REHABILITATION DAILY PROGRESS NOTE CHIEF COMPLAINT: right posterior limb internal capsule infarct SUBJECTIVE: Shoulder pain improved with patch. brought in list of medications. OBJECTIVE: VITALS: Vitals: 12/23/23 0727 12/23/235 12/24/23 0705 12/24/23 0957 BP: 127/75 144/74 119/76 BP Location: Right arm Right arm Patient Position: Sitting Sitting Sitting Pulse: 78 56 58 Resp: 20 16 18 Temp: 36.3 ??C (97.3 ??F) 36.8 ??C (98.2 ??F) 36.3 ??C (97.3 ??F) TempSrc: Temporal Temporal Oral SpO2: 93% 96% 93% 97% Weight: Height: PHYSICAL EXAM: General: no acute distress, brushing teeth HEENT: normocephalic, trachea midline Heart: rrr Lungs: ctab GI: soft, nontender Neuro: awake, alert LABS/RADIOLOGY/DIAGNOSTIC REVIEW Recent Labs Lab Units 12/20/23 0404 WBC K/cumm 7.9 HEMOGLOBIN g/dL 13.7 HEMATOCRIT % 42.0 PLATELETS K/cumm 253 Recent Labs Lab Units 12/20/23 0404 SODIUM mmol/L 139 POTASSIUM PLASMA mmol/L 4.6 CHLORIDE mmol/L 104 CO2 mmol/L 25 ANIONGAP mmol/L 10 GLUCOSE mg/dL 112 BUN SERUM mg/dL 19 CREATININE mg/dL 1.25 CALCIUM mg/dL 9.0 ALBUMIN g/dL 3.4* ALK PHOS Units/L 117 ALT Units/L 16 AST Units/L 24 BILIRUBIN TOTAL mg/dL 0.4 Recent Labs Lab Units 12/20/23 0404 GLUCOSE mg/dL 112 OT Functional Mobility: 12/20 Functional transfers: MOD-MAX OT Self Care: 12/20 Bathing: MAX Grooming: MAX UB dress:MOD LB dress: MAX Footwear: MAX Toileting:TOTAL NUMEROLOGIST Cognition: Mild/moderate cognitive deficits in short term memory and thought organization. NUMEROLOGIST Communication: Mild dysarthric speech. NUMEROLOGIST Swallowing: Swallow assessed by NUMEROLOGIST. Regular consistency diet/thin liquids recommended. Patientuses intermittent finger/lingual sweep and liquid wash to clear residue. PT Functional Mobility: 12/21/23: supine <> sit with MIN assist for L LE. Rolling toward L side with SBA. Sit <> stand to rasheed-aide with MOD to MIN assist. 12' gait with rasheed-aide and MOD assist. Stand pivot with rasheed-aide and MAX assist. W/C mobility 60'-75' with R LE and UE with SPV. No results found. MEDICATIONS: Current Facility-Administered Medications: acetaminophen (TYLENOL) tablet 650 mg, 650 mg, oral, Q6H PRN, Becky Montana MD, 650 mg at 12/23/23 1249 albuterol HFA (PROVENTIL HFA,VENTOLIN HFA,PROAIR HFA) 90 mcg/actuation inhaler 2 puff, 2 puff, inhalation, Q4H PRN (RT), Becky Montana MD aspirin chewable tablet 81 mg, 81 mg, oral, Daily, Becky Montana MD, 81 mg at 12/24/23 0842 calcium carbonate (TUMS) chewable tablet 1,000 mg, 400 mg of elemental calcium, oral, TID PRN, Becky Montana MD donepeziL (ARICEPT) tablet 10 mg, 10 mg, oral, Nightly, Becky Montana MD, 10 mg at 12/23/232121 enoxaparin (LOVENOX) syringe 40 mg, 40 mg, subcutaneous, Daily-2100, Becky Rudd MD, 40 mg at 12/23/232119 fluticasone furoate-vilanteroL (BREO ELLIPTA) 100-25 mcg/dose inhaler 1 puff, 1 puff, inhalation, Daily (RT), Becky Montana MD, 1 puff at 12/24/23 0957 gabapentin (NEURONTIN) capsule 300 mg, 300 mg, oral, TID, Becky Montana MD, 300 mg at 12/24/23 0842 guaiFENesin ER (MUCINEX) extended release tablet 600 mg, 600 mg, oral, BID, Jl Montana MD, 600 mg at 12/24/23 0842 levothyroxine (SYNTHROID) tablet 150 mcg, 150 mcg, oral, Daily - 0600, Becky Rudd MD, 150 mcg at 12/24/23 0605 lidocaine (LIDODERM) 5 % patch 1 patch, 1 patch, transdermal, Q24H, Becky Rudd MD, 1 patch at 12/23/23 1249 ofloxacin (OCUFLOX) 0.3 % ophthalmic solution 1 drop, 1 drop, each eye, Daily PRN, Becky Montana MD ondansetron (ZOFRAN) tablet 4 mg, 4 mg, oral, TID PRN, Becky Montana MD pantoprazole DR (PROTONIX) extended release tablet 40 mg, 40 mg, oral, BID, Jl Montana MD, 40 mg at 12/24/23 0842 polyethylene glycol (MIRALAX) packet 17 g, 17 g, oral, Daily, Becky Montana MD, 17 gat 12/24/23 0842 ramelteon (ROZEREM) tablet 8 mg, 8 mg, oral, Nightly PRN, Becky Montana MD, 8 mg at 12/23/23 2129 rosuvastatin (CRESTOR) tablet 40 mg, 40 mg, oral, Daily, Becky Montana MD, 40 mg at 12/24/23 0841 senna-docusate (PERICOLACE) 8.6-50 mg per tablet 1 tablet, 1 tablet, oral, BID PRN, Becky Montana MD, 1 tablet at 12/19/23 0837 simethicone (MYLICON) chewable tablet 80 mg, 80 mg, oral, TID PRN, Becky Rudd MD tamsulosin (FLOMAX) extended release capsule 0.4 mg, 0.4 mg, oral, Nightly, Jl Montana MD, 0.4 mg at 12/23/232119 tiZANidine (ZANAFLEX) tablet 2 mg, 2 mg, oral, TID PRN, Becky Montana MD, 2 mg at 12/21/23 0858 traMADoL (ULTRAM) tablet 50 mg, 50 mg, oral, Q6H PRN, Becky Montana MD ASSESSMENT/PLAN: MEDICAL PLAN OF CARE: 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 Reviewed home medicine - on spironolactone 25mg and lasix 20mg HLD: continue rosuvastatin 40mg AAA: no current medications Hypothyroidism: continue levothyroxine 150mcg GERD: continue pantoprazole 40mg bid Alzheimer: continue donepezil 10mg qhs Depression: no current medications Asthma: continue breo ellipta 100-25 daily BPH: continue flomax 0.4mg qhs 12/23: reviewed home medications - on oxybutynin 15mg and gemtesa 75mg for overactive bladder - hold for now Neuropathy: continue gabapentin 300mg tid Pain: Start Tylenol 650mg q6h prn, oxycodone 5mg q4h prn 12/22: lidoderm patch, decrease frequency of oxycodone to q6h prn 12/23: reviewed home medications, dc oxycodone and start tramadol 50mg q6h prn Bowels: Start miralax daily, pericolace bid prn, simethicone prn 12/16: dulcolax 10mg x1 Nausea: Start Zofran prn, Tums prn Congestion: start mucinex 600mg bid 12/23: start home cetirizine 10mg Diet: Reg/Thin HH 2G Na DVT ppx: restart lovenox Precautions: Fall Weightbearing status: full Code: Full Code Care discussed with Nursing, NUMEROLOGIST Reviewed vital signs, intake, bowel, and bladder - as above REHAB PLAN OF CARE: Patient's expected intensity and duration of participation in the interdisciplinary rehabilitation program and disciplines that comprise this team: Therapies required to achieve goals:The patient will benefit from integrated coordination of care from the following interdisciplinary services: Medical Supervision, 24 hours Rehabilitation Nursing, Physical Therapy, Occupational Therapy, Case Management; Social Work; Therapeutic Recreation; SpeechTherapy; Flatwork Feeder Frequency and duration of therapies expect to be:Expected intensity and frequency of participation in the interdisciplinary rehab program is: 3 hours per day except Wednesday. Expected intensity and frequency of Physical Therapy (PT): 1.5 hours per day over 5-7 days for the duration of length of stay Expected intensity and frequency of Occupational Therapy (OT): 1.5 hours per day over 5-7 days per week for the duration of length of stay Expected intensity and frequency of Speech Therapy (NUMEROLOGIST): 1 hour per day per day over 5-7 days per week for the duration of length of stay FUNCTIONAL CHANGE: Spongebathing - maxA DISCHARGE PLANNING: Expected Discharge Date: TBD Equipment: TBD Family Training: SW to set up Education: Follow up Appointments: PCP 1-2 weeks Becky Montana MD Physical Medicine and Rehabilitation I can be reached from 7am-7pm through [employer]. Hospitalist forest fire prevention manager from 7pm-7am * Madie Oneill PTA - 12/24/2023 11:07 AM CDT Physical Therapy PT PROGRESS NOTE Gunjan Gtz Jr. 78 y.o. 1945 Past Medical History: Diagnosis Date Acute gastric [...] delayed healing, subsequent encounter Clotting disorder (CMS/HCC) ([facility]) Complex tear of medial meniscus of left knee as current injury Complex tear of medial meniscus of right knee as current injury Cramps of lower extremity Diverticulitis of colon Easy bruisability Fatigue Frequent urination Gastroesophageal reflux disease GERD Hypothyroidism Incontinence of urine Muscle weakness Osteoarthritis Osteoarthritis Peptic ulcer Peptic ulcer disease Seizures ([facility]) 1997 last seizure in 1997 SOB (shortness of breath) on exertion Subchondral insufficiency fracture of condyle of left femur (CMS/HCC) ([facility]) Vertigo Vision changes Visual disturbance hx of double vision, corrective lenses Past Surgical History: Procedure Laterality Date CATARACT EXTRACTION, BILATERAL Bilateral 2018 HERNIA REPAIR 1979 Hiatal Hernia repair KNEE ARTHROSCOPY Bilateral THYROIDECTOMY 12/27/2019 Patient Active Problem List Diagnosis Primary osteoarthritis of both knees Subchondral insufficiency fracture of condyle of left femur (CMS/HCC) ([facility]) Closed fracture of left tibial plateau with delayed healing Closed fracture of right tibial plateau with delayed healing Closed nondisplaced osteochondral fracture of left patella with delayed healing Closed osteochondral fracture of patella, right, with delayed healing, subsequent encounter Complex tear of medial meniscus of right knee as current injury Complex tear of medial meniscus of left knee as current injury Goiter Breast pain, right Cataract of right eye Diplopia Esotropia Hypertropia of right eye Skin lesion of breast Edema Intermittent claudication ([facility]) Iron deficiency anemia Peripheral vascular disease (HCC) Pain due to total right knee replacement (CMS/HCC) ([facility]) Hamstring tendinitis of right thigh Quadriceps weakness Idiopathic peripheral neuropathy Abnormality of gait and mobility Hx of total knee replacement, right Neuropathy (CMS/HCC) 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 Biceps tendinitis of left upper extremity Tear of left glenoid labrum Coffee ground emesis Upper GI bleed Acquired hypothyroidism Acute blood loss anemia Lung nodule Nocturnal cough Hiatal hernia Infrarenal abdominal aortic aneurysm (AAA) without rupture ([facility]) Acute CVA (cerebrovascular accident) ([facility]) Moderate malnutrition (CMS/HCC) TIME IN: 1102 TIME OUT: 1150 SUBJECTIVE I have a brace in my room if you want to try it. Patient reports bringing in a knee brace from home and agreeable to therapy. MENTAL STATUS/ORIENTATION: Alert and oriented x4 and decreased safety insight. PAIN: Pre-therapy pain level: none Pain location: na Pain intervention: na Post-therapy pain level/response to intervention: reports hip pain with gait. OBJECTIVE PRECAUTIONS: fall APPEARANCE/POSTURE: present in therapy gym, seated in w/c, chair alarm active MOBILITY DOCUMENTATION: Bed Mobility: NT Transfers: sit <> stand with rasheed-aide / two trials on first attempt; MIN assist. Improved balance during second transfer. Ambulation: 22' with rasheed-aide varies between MIN and MOD assist with distant W/C follow. Frequent v/c regarding sequencing - primarily cane placement, and extending L LE prior to WB. Stairs: NT Wheelchair management & propulsion: NT TREATMENT: Donned knee brace (from patient's home) at session start. Patient performs seated HEP x 10 reps KATELIN with small blue ball and #2 ankle weight on R LE only. Heel slides, hip int rot/ ext rot, tap ups, hip ADD squeezes. MIN assist to complete on R. Improvementfrom arrival to rehab. Continues to exhibit decreased control, decreased strength. Appearance/Posture at end of treatment session: Returned to room, seated in w/c, chair alarm active, call light in reach, lunch tray set up. EDUCATION: PATIENT/FAMILY EDUCATION: HEP, purpose of knee braces, gait sequencing Response to Education: needs reinforcement ASSESSMENT Activity tolerance/response to PT: Patient is disappointed that the knee brace didn't help anything ; did not want to remove post session. Patient with unrealistic expectations, decreased effort into tasks. Barriers to learning: Physical and Cognitive Barriers to discharge: Pain, Limited family support, No caregiver support, Cognitive deficit, Decreased motivation, Limited insight into deficits, Unrealistic expectations, Decreased endurance, Decreased proprioception, Upper extremity weakness, Lower extremity weakness, and Stairs at home Patient continues progressing toward previously set goals which remain appropriate at this time. PLAN Patient to be seen bid 5x/week to address previously established deficits and goals. * Rosalia Marinelli, OT - 12/24/2023 10:02 AM CDT Occupational Therapy NOTE TYPE: OT TREATMENT ([facility] BEDSIDE SESSION) Patient's Name: Gunjan Gtz Jr. Age / Sex: 78 y.o. / male Room: [place] [id number] : 1945 Date: 12/24/23 Time In: 1001 Time Out: 1102 Patient Active Problem List Diagnosis Primary osteoarthritis of both knees Subchondral insufficiency fracture of condyle of left femur (CMS/HCC) ([facility]) Closed fracture of left tibial plateau with delayed healing Closed fracture of right tibial plateau with delayed healing Closed nondisplaced osteochondral fracture of left patella with delayed healing Closed osteochondral fracture of patella, right, with delayed healing, subsequent encounter Complex tear of medial meniscus of right knee as current injury Complex tear of medial meniscus of left knee as current injury Goiter Breast pain, right Cataract of right eye Diplopia Esotropia Hypertropia of right eye Skin lesion of breast Edema Intermittent claudication ([facility]) Iron deficiency anemia Peripheral vascular disease ([facility]) Pain due to total right knee replacement (CMS/HCC) ([facility]) Hamstring tendinitis of right thigh Quadriceps weakness Idiopathic peripheral neuropathy Abnormality of gait and mobility Hx of total knee replacement, right Neuropathy (CMS/HCC) 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 Biceps tendinitis of left upper extremity Tear of left glenoid labrum Coffee ground emesis Upper GI bleed Acquired hypothyroidism Acute blood loss anemia Lung nodule Nocturnal cough Hiatal hernia Infrarenal abdominal aortic aneurysm (AAA) without rupture ([facility]) Acute CVA (cerebrovascular accident) ([facility]) Moderate malnutrition ([facility] [facility]) Past Medical History: Diagnosis Date Acute gastric ulcer without hemorrhage or perforation Ulcer, gastric, acute - (Added by TW Conv) Alzheimer's dementia ([facility]) Asthma Back pain Cataract Closed fracture of left tibial plateau with delayed healing Closed fracture of right tibial plateau with delayed healing Closed nondisplaced osteochondral fracture of left patella with delayed healing Closed osteochondral fracture of patella, right, with delayed healing, subsequent encounter Clotting disorder (CMS/HCC) ([facility]) Complex tear of medial meniscus of left knee as current injury Complex tear of medial meniscus of right knee as current injury Cramps of lower extremity Diverticulitis of colon Easy bruisability Fatigue Frequent urination Gastroesophageal reflux disease GERD Hypothyroidism Incontinence of urine Muscle weakness Osteoarthritis Osteoarthritis Peptic ulcer Peptic ulcer disease Seizures ([facility]) 1997 last seizure in 1997 SOB (shortness of breath) on exertion Subchondral insufficiency fracture of condyle of left femur (CMS/HCC) (HCC) Vertigo Vision changes Visual disturbance hx of double vision, corrective lenses Past Surgical History: Procedure Laterality Date CATARACT EXTRACTION, BILATERAL Bilateral 2018 HERNIA REPAIR 1980 Hiatal Hernia repair KNEE ARTHROSCOPY Bilateral THYROIDECTOMY 12/27/2019 Precautions (Including Weight-Bearing): Fall risk and Bed / chair alarm SUBJECTIVE: Patient agreeable Therapy Pain: Pre-therapy pain level: 0 / 10 Pain location: No pain - Location N/A Pain intervention(s): No pain - Intervention N/A Post-therapy pain level: 0 / 10 Pain scale used: 0-10 SCALE OBJECTIVE: APPEARANCE: Presentation upon OT arrival: Patient Sitting in bedside recliner Presentation upon OT departure: PATIENT Sitting in manual wheelchair with staff assistance Bed / chair alarm in place and activated upon OT departure: Yes Call light within arms reach of patient at end of session: No - due to patient taken to physical therapy gym Completed patient handoff and notified Physical Therapist / Physical Therapist Human Resources Clerk, name: Marcia, of patient's location and functional status upon completion of session. COGNITIVE / PERCEPTUAL: Alert and oriented to conversation SELF CARE: Shower / Bathe Self Type of bathing: SPONGEBATHING Location of shower / bathe self: Sitting in manual wheelchair and Standing at grab bar Tasks completed: ALL COMPONENTS Components that required assistance (if applicable): MAX ASSIST RIGHT ARM and MAX ASSIST BUTTOCKS Overall assist level: SUBSTANTIAL / MAXIMAL ASSISTANCE: MORE THAN HALF (50% - 99%) Adaptive equipment (if applicable): no assistive device Additional documentation: MAX assist overall. Patient required min assist for standing balance at grab bar and max assist to wash buttock. Max assist to wash RUE. Oral Hygiene Location of oral hygiene: Sitting in manual wheelchair Overall assist level: PARTIAL / MODERATE ASSISTANCE: LESS THAN HALF (1% - 49%) Additional documentation: Patient required min assist to steady toothbrush when placing toothpaste Other Grooming Tasks Location of other grooming tasks: Sitting in manual wheelchair Tasks completed: COMBING HAIR and APPLYING DEODORANT Overall assist level: PARTIAL / MODERATE ASSISTANCE: LESS THAN HALF (1% - 49%) Additional documentation: MIN assist overall. Patient required assist to place hair product on handand spread UE Dressing Location of UE dressing: Sitting in manual wheelchair Tasks completed: Pullover shirt and Undershirt Overall assist level: PARTIAL / MODERATE ASSISTANCE: LESS THAN HALF (1% - 49%) Additional documentation: MIN assist overall. Patient required assist to fully pull down shirt. LE Dressing (Underwear / Pants) Location of LE dressing (Underwear / Pants): Sitting in manual wheelchair and Standing at grab bar Tasks completed: Elastic waist pants and Incontinence briefs as underwear Overall assist level: SUBSTANTIAL / MAXIMAL ASSISTANCE: MORE THAN HALF (50% - 99%) Additional documentation: MAX assist overall. Mod assist to thread BLE. MAX assist for hip components in standing with min assist for standing at grab bar. Putting On / Taking Off Footwear Location of putting on / taking off footwear: Sitting in manual wheelchair Tasks completed: Sock(s) and Slip-on shoe(s) Overall assist level: SUBSTANTIAL / MAXIMAL ASSISTANCE: MORE THAN HALF (50% - 99%) Additional documentation: N/A MOBILITY: Transfers: MOD assist stand pivot recliner to w/c using rasheed aide; patient required MOD verbal cueing for handplacement during transfer HEARING / SPEECH / VISION: Expression of ideas and wants Overall assist level: WITHOUT DIFFICULTY Understanding verbal and non-verbal content Overall assist level: UNDERSTANDS Caregiver present (yes / no): No Education & training provided: Role of OT, OT plan of care, ADL training, Functional transfer training, and Safety education ASSESSMENT: Activity tolerance / response to OT: GOOD PARTICIPATION, GOOD MOTIVATION, and RECEPTIVE TO EDUCATION / TRAINING Progress towards goals: Please refer to Care Plan from this date for progress towards individual goals. PLAN: Therapy Plan: Please refer to most recent Inpatient Rehabilitation Team Conference note for discharge plan, including location, recommended level of supervision, and arrangements. Frequency of therapy: BID SESSIONS 5 DAYS / WEEK TO ADDRESS PREVIOUSLY ESTABLISHED DEFICITS AND GOALS Rosalia Marinelli OT 12/24/23 * Madie Oneill, DIRECTOR OF RECRUITING - 12/23/2023 2:07 PM CDT Physical Therapy PT PROGRESS NOTE Gunjan Gtz Jr. 78 y.o. 1945 Past Medical History: Diagnosis Date Acute gastric [...] delayed healing, subsequent encounter Clotting disorder (CMS/HCC) ([facility]) Complex tear of medial meniscus of left knee as current injury Complex tear of medial meniscus of right knee as current injury Cramps of lower extremity Diverticulitis of colon Easy bruisability Fatigue Frequent urination Gastroesophageal reflux disease GERD Hypothyroidism Incontinence of urine Muscle weakness Osteoarthritis Osteoarthritis Peptic ulcer Peptic ulcer disease Seizures ([facility]) 1997 last seizure in 1997 SOB (shortness of breath) on exertion Subchondral insufficiency fracture of condyle of left femur (CMS/HCC) ([facility]) Vertigo Vision changes Visual disturbance hx of double vision, corrective lenses Past Surgical History: Procedure Laterality Date CATARACT EXTRACTION, BILATERAL Bilateral 2018 HERNIA REPAIR 1979 Hiatal Hernia repair KNEE ARTHROSCOPY Bilateral THYROIDECTOMY 12/27/2019 Patient Active Problem List Diagnosis Primary osteoarthritis of both knees Subchondral insufficiency fracture of condyle of left femur (CMS/HCC) ([facility]) Closed fracture of left tibial plateau with delayed healing Closed fracture of right tibial plateau with delayed healing Closed nondisplaced osteochondral fracture of left patella with delayed healing Closed osteochondral fracture of patella, right, with delayed healing, subsequent encounter Complex tear of medial meniscus of right knee as current injury Complex tear of medial meniscus of left knee as current injury Goiter Breast pain, right Cataract of right eye Diplopia Esotropia Hypertropia of right eye Skin lesion of breast Edema Intermittent claudication ([facility]) Iron deficiency anemia Peripheral vascular disease ([facility]) Pain due to total right knee replacement (CMS/HCC) ([facility]) Hamstring tendinitis of right thigh Quadriceps weakness Idiopathic peripheral neuropathy Abnormality of gait and mobility Hx of total knee replacement, right Neuropathy (CMS/HCC) 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 Biceps tendinitis of left upper extremity Tear of left glenoid labrum Coffee ground emesis Upper GI bleed Acquired hypothyroidism Acute blood loss anemia Lung nodule Nocturnal cough Hiatal hernia Infrarenal abdominal aortic aneurysm (AAA) without rupture ([facility]) Acute CVA (cerebrovascular accident) ([facility]) Moderate malnutrition (CMS/HCC) TIME IN: 230 TIME OUT: 315 SUBJECTIVE I'm glad my shoulder doesn't hurt anymore. Patient agreeable to therapy. MENTAL STATUS/ORIENTATION: Alert and oriented x4 PAIN: Pre-therapy pain level: none Pain location: na Pain intervention: na Post-therapy pain level/response to intervention: none OBJECTIVE PRECAUTIONS: fall APPEARANCE/POSTURE: present in therapy gym, seated in w/c, chair alarm active MOBILITY DOCUMENTATION: Bed Mobility: sit <> supine with MOD assist due to decreased command following, difficulty with trunk mobility Transfers: sit <> stand from w/c and edge of bed with MIN assist; patient requires 3-4 rocking motions to completely stand. Good balance with standing this session. Rasheed-aide or rasheed-bar. Stepping pivot transfers W/C <> mat, W/C to recliner. Initially MOD assist due to patient notfollowing commands and reaching for arm of W/C vs rasheed-cane. Improved weight shifting during finaltransfer and MIN assist with rasheed-aide Ambulation: transfers only Stairs: NA Wheelchair management & propulsion: NT TREATMENT: Patient performs two bouts of weight shifting at rsaheed-bar with MOD assist for sequencing and timing. 3 minutes each trial. Focusing on terminal knee extension in standing. Patient performs supine HEP. Patient falls asleep, ignores therapists commands to participate. Quadset x 5 reps x 2 on L Passive ROM to L LE for heel slides and hip ABD. Patient performs SLR and heel slides with R LE x 10 reps. Standing at rasheed-bar, patient able to perform 5 reps mini-squats and return to standing with v/c regarding full extension of R LE. Appearance/Posture at end of treatment session: returned to room, seated in recliner, chair alarm active, call light in reach Family friends present. EDUCATION: PATIENT/FAMILY EDUCATION: knee extension, supine hep, log rolling Response to Education: needs reinforcement and limited receptiveness ASSESSMENT Activity tolerance/response to PT: FAIR Patient has difficulty participating in supine HEP. Commandfollowing is limited. Safety is impacted. Barriers to learning: unchanged from AM Barriers to discharge: unchanged from AM Patient continues progressing toward previously set goals which remain appropriate at this time. PLAN Patient to be seen bid 5x/week to address previously established deficits and goals. * Rosalia Marinelli, OT - 12/23/2023 1:35 PM CDT Occupational Therapy NOTE TYPE: OT TREATMENT ([facility] DEPARTMENT SESSION) PATIENT'S NAME: Gunjan Gtz Jr. AGE / SEX: 78 y.o. / male ROOM: [place] [id number] : 1945 DATE: 12/23/23 TIME IN: 6035 TIME OUT: 8953 Patient Active Problem List Diagnosis Primary osteoarthritis of both knees Subchondral insufficiency fracture of condyle of left femur (CMS/HCC) ([facility]) Closed fracture of left tibial plateau with delayed healing Closed fracture of right tibial plateau with delayed healing Closed nondisplaced osteochondral fracture of left patella with delayed healing Closed osteochondral fracture of patella, right, with delayed healing, subsequent encounter Complex tear of medial meniscus of right knee as current injury Complex tear of medial meniscus of left knee as current injury Goiter Breast pain, right Cataract of right eye Diplopia Esotropia Hypertropia of right eye Skin lesion of breast Edema Intermittent claudication ([facility]) Iron deficiency anemia Peripheral vascular disease ([facility]) Pain due to total right knee replacement (CMS/HCC) ([facility]) Hamstring tendinitis of right thigh Quadriceps weakness Idiopathic peripheral neuropathy Abnormality of gait and mobility Hx of total knee replacement, right Neuropathy (CMS/HCC) 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 Biceps tendinitis of left upper extremity Tear of left glenoid labrum Coffee ground emesis Upper GI bleed Acquired hypothyroidism Acute blood loss anemia Lung nodule Nocturnal cough Hiatal hernia Infrarenal abdominal aortic aneurysm (AAA) without rupture ([facility]) Acute CVA (cerebrovascular accident) ([facility]) Moderate malnutrition (CMS/HCC) Past Medical History: Diagnosis Date Acute gastric ulcer without hemorrhage or perforation Ulcer, gastric, acute - (Added by TW Conv) Alzheimer's dementia ([facility]) Asthma Back pain Cataract Closed fracture of left tibial plateau with delayed healing Closed fracture of right tibial plateau with delayed healing Closed nondisplaced osteochondral fracture of left patella with delayed healing Closed osteochondral fracture of patella, right, with delayed healing, subsequent encounter Clotting disorder (CMS/HCC) ([facility]) Complex tear of medial meniscus of left knee as current injury Complex tear of medial meniscus of right knee as current injury Cramps of lower extremity Diverticulitis of colon Easy bruisability Fatigue Frequent urination Gastroesophageal reflux disease GERD Hypothyroidism Incontinence of urine Muscle weakness Osteoarthritis Osteoarthritis Peptic ulcer Peptic ulcer disease Seizures ([facility]) 1997 last seizure in 1997 SOB (shortness of breath) on exertion Subchondral insufficiency fracture of condyle of left femur (CMS/HCC) ([facility]) Vertigo Vision changes Visual disturbance hx of double vision, corrective lenses Past Surgical History: Procedure Laterality Date CATARACT EXTRACTION, BILATERAL Bilateral 2018 HERNIA REPAIR 1979 Hiatal Hernia repair KNEE ARTHROSCOPY Bilateral THYROIDECTOMY 12/27/2019 PRECAUTIONS (INCLUDING WEIGHT-BEARING): Fall risk and Bed / chair alarm SUBJECTIVE: My shoulder doesn't hurt anymore THERAPY PAIN: PRE-THERAPY PAIN LEVEL: 10 / 10 PAIN LOCATION: L shoulder PAIN INTERVENTION(S): Repositioned POST-THERAPY PAIN LEVEL: 2 / 10 PAIN SCALE USED: 0-10 SCALE OBJECTIVE: APPEARANCE: PRESENTATION UPON OT ARRIVAL: PATIENT Sitting in manual wheelchair at bedside PRESENTATION UPON OT DEPARTURE: PATIENT Sitting in manual wheelchair with staff assistance BED / CHAIR ALARM IN PLACE AND ACTIVATED UPON OT DEPARTURE: Yes CALL LIGHT WITHIN ARMS REACH OF PATIENT AT END OF SESSION: No - due to patient taken to physical therapy gym COMPLETED PATIENT HANDOFF AND NOTIFIED Physical Therapist / Physical Therapist Human Resources Clerk, NAME: Marcia, OF PATIENT'S LOCATION AND FUNCTIONAL STATUS UPON COMPLETION OF SESSION COGNITIVE / PERCEPTUAL: Alert and oriented to conversation UE THERAPEUTIC EXERCISES: ACTIVITIES: E-stim for muscle re-education (OVERALL ASSIST LEVEL): hand over hand LOCATION: seated ACTIVITY DESCRIPTION: Patient participated in E-stim activity for wrist/hand muscle re-education with the following settings: Wavelength:VMS , with cycle time of 4 on 12 off, ramp at 2 seconds, with amplitude at 23 mA CC. Patient demonstrated good tolerance for activity. Patient participated in activity for 10 minutes. MIN VC required to maintain attention to task completion. CAREGIVER PRESENT (YES / NO): No EDUCATION & TRAINING PROVIDED: Role of OT and OT plan of care ASSESSMENT: ACTIVITY TOLERANCE / RESPONSE TO OT: GOOD PARTICIPATION and RECEPTIVE TO EDUCATION / TRAINING PROGRESS TOWARDS GOALS: PLEASE REFER TO CARE PLAN FROM THIS DATE FOR PROGRESS TOWARDS INDIVIDUAL GOALS PLAN: PLEASE REFER TO MOST RECENT INPATIENT REHABILITATION TEAM CONFERENCE NOTE FOR DISCHARGE PLAN, INCLUDING LOCATION, RECOMMENDED LEVEL OF SUPERVISION AND ARRANGEMENTS. FREQUENCY OF THERAPY: BID SESSIONS 5 DAYS / WEEK TO ADDRESS PREVIOUSLY ESTABLISHED DEFICITS AND GOALS Rosalia Marinelli OT 12/23/23 * Paresh Prieto, NUMEROLOGIST - 12/23/2023 12:53 PM CDT SPEECH LANGUAGE PATHOLOGY PROGRESS NOTE Patient's Name: Gunjan Gtz Jr. : 1945 Age: 78 y.o. Time In: 12:49 Time Out: 13:17 Patient Active Problem List Diagnosis Primary osteoarthritis of both knees Subchondral insufficiency fracture of condyle of left femur (CMS/HCC) ([facility]) Closed fracture of left tibial plateau with delayed healing Closed fracture of right tibial plateau with delayed healing Closed nondisplaced osteochondral fracture of left patella with delayed healing Closed osteochondral fracture of patella, right, with delayed healing, subsequent encounter Complex tear of medial meniscus of right knee as current injury Complex tear of medial meniscus of left knee as current injury Goiter Breast pain, right Cataract of right eye Diplopia Esotropia Hypertropia of right eye Skin lesion of breast Edema Intermittent claudication ([facility]) Iron deficiency anemia Peripheral vascular disease ([facility]) Pain due to total right knee replacement (CMS/HCC) ([facility]) Hamstring tendinitis of right thigh Quadriceps weakness Idiopathic peripheral neuropathy Abnormality of gait and mobility Hx of total knee replacement, right Neuropathy (CMS/HCC) 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 Biceps tendinitis of left upper extremity Tear of left glenoid labrum Coffee ground emesis Upper GI bleed Acquired hypothyroidism Acute blood loss anemia Lung nodule Nocturnal cough Hiatal hernia Infrarenal abdominal aortic aneurysm (AAA) without rupture ([facility]) Acute CVA (cerebrovascular accident) ([facility]) Moderate malnutrition (CMS/[facility]) Past Medical History: Diagnosis Date Acute gastric ulcer without hemorrhage or perforation Ulcer, gastric, acute - (Added by TW Conv) Alzheimer's dementia ([facility]) Asthma Back pain Cataract Closed fracture of left tibial plateau with delayed healing Closed fracture of right tibial plateau with delayed healing Closed nondisplaced osteochondral fracture of left patella with delayed healing Closed osteochondral fracture of patella, right, with delayed healing, subsequent encounter Clotting disorder (CMS/HCC) ([facility]) Complex tear of medial meniscus of left knee as current injury Complex tear of medial meniscus of right knee as current injury Cramps of lower extremity Diverticulitis of colon Easy bruisability Fatigue Frequent urination Gastroesophageal reflux disease GERD Hypothyroidism Incontinence of urine Muscle weakness Osteoarthritis Osteoarthritis Peptic ulcer Peptic ulcer disease Seizures ([facility]) 1997 last seizure in 1997 SOB (shortness of breath) on exertion Subchondral insufficiency fracture of condyle of left femur (CMS/HCC) ([facility]) Vertigo Vision changes Visual disturbance hx of double vision, corrective lenses Past Surgical History: Procedure Laterality Date CATARACT EXTRACTION, BILATERAL Bilateral 2018 HERNIA REPAIR 1980 Hiatal Hernia repair KNEE ARTHROSCOPY Bilateral THYROIDECTOMY 12/27/2019 SUBJECTIVE MENTAL STATUS: Patient awake, sitting up in wheelchair. Reports feeling tired. PAIN: Pre Therapy Pain Level: 07/20 Pain Location: left shoulder Pain Intervention: RN aware; pain medication received prior to session Post Therapy Pain Level/Response to Intervention:04/19 OBJECTIVE PRECAUTIONS: Fall precautions SWALLOWING: Patient continues to tolerate regular consistency diet/thin liquids. COGNITION: Decreased short term memory, thought organization and insight. COMMUNICATION: Mild dysarthric speech; Patient able to verbalize wants/needs accurately TREATMENT ACTIVITIES: Recall daily activities/recent events with 100% accuracy Attend to left visual field 70% of the time independently Left visual scanning task: locate specific image Trial 1: 6/8 independently and 8/8 given verbal prompting Trial 2: 5.7 independently and 7/7 given verbal prompting Oral motor exercises 10xs each EDUCATION: PATIENT/FAMILY EDUCATION: Reviewed progress with patient Response to Education: Understanding verbalized ASSESSMENT Activity Tolerance/Response to S.T.: Tolerated speech therapy session with no complaints Barriers to learning: Vision, Cognition Current status: Patient with left visual field inattention/neglect. Able to scan to left visual field with verbal cues and prompts. Able to complete oral motor exercises with verbal cues. Progress toward goals: Patient continues to progress toward previously set goals which remain appropriate at this time. PLAN Multi-Disciplinary Problems (from Speech Therapy) Active Problems Problem: [facility] Start Date: 12/16/23 Goal Start Date Expected End Date End Date [facility] 1 12/16/23 12/23/23 -- Goal Details: Patient to perform short term memory tasks using compensatory strategies with 80% accuracy. Goal Start Date Expected End Date End Date [facility] 2 12/16/23 12/23/23 -- Goal Details: Patient to perform functional problem solving/reasoning tasks with 80% accuracy. Goal Start Date Expected End Date End Date [facility] 3 12/16/23 12/23/23 -- Goal Details: Patient to attend to left visual field 80% of the time given 2-3 verbal prompts. Goal Start Date Expected End Date End Date [facility] 4 12/16/23 12/23/23 -- Goal Details: Patient's speech to be 90% intelligible during conversational tasks utilizing compensatory strategies. Frequency of Treatment: BID, 5xs weekly Recommendations: Recommend home with 24 hour supervision at discharge. If this is the last note, consider this the discharge summary. * Paresh Prieto, NUMEROLOGIST - 12/23/2023 12:52 PM CDT SPEECH LANGUAGE PATHOLOGY PROGRESS NOTE Patient's Name: Gunjan Gtz Jr. : 1945 Age: 78 y.o. Time In: 8:28 Time Out: 8:56 Patient Active Problem List Diagnosis Primary osteoarthritis of both knees Subchondral insufficiency fracture of condyle of left femur (CMS/HCC) (HCC) Closed fracture of left tibial plateau with delayed healing Closed fracture of right tibial plateau with delayed healing Closed nondisplaced osteochondral fracture of left patella with delayed healing Closed osteochondral fracture of patella, right, with delayed healing, subsequent encounter Complex tear of medial meniscus of right knee as current injury Complex tear of medial meniscus of left knee as current injury Goiter Breast pain, right Cataract of right eye Diplopia Esotropia Hypertropia of right eye Skin lesion of breast Edema Intermittent claudication (HCC) Iron deficiency anemia Peripheral vascular disease (HCC) Pain due to total right knee replacement (CMS/HCC) (HCC) Hamstring tendinitis of right thigh Quadriceps weakness Idiopathic peripheral neuropathy Abnormality of gait and mobility Hx of total knee replacement, right Neuropathy (CMS/HCC) 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 Biceps tendinitis of left upper extremity Tear of left glenoid labrum Coffee ground emesis Upper GI bleed Acquired hypothyroidism Acute blood loss anemia Lung nodule Nocturnal cough Hiatal hernia Infrarenal abdominal aortic aneurysm (AAA) without rupture (HCC) Acute CVA (cerebrovascular accident) (HCC) Moderate malnutrition (CMS/HCC) Past Medical History: Diagnosis Date Acute gastric [...] delayed healing, subsequent encounter Clotting disorder (CMS/HCC) (HCC) Complex tear of medial meniscus of left knee as current injury Complex tear of medial meniscus of right knee as current injury Cramps of lower extremity Diverticulitis of colon Easy bruisability Fatigue Frequent urination Gastroesophageal reflux disease GERD Hypothyroidism Incontinence of urine Muscle weakness Osteoarthritis Osteoarthritis Peptic ulcer Peptic ulcer disease Seizures (HCC) 1997 last seizure in 1997 SOB (shortness of breath) on exertion Subchondral insufficiency fracture of condyle of left femur (CMS/HCC) (HCC) Vertigo Vision changes Visual disturbance hx of double vision, corrective lenses Past Surgical History: Procedure Laterality Date CATARACT EXTRACTION, BILATERAL Bilateral 2018 HERNIA REPAIR 1979 Hiatal Hernia repair KNEE ARTHROSCOPY Bilateral THYROIDECTOMY 12/27/2019 SUBJECTIVE MENTAL STATUS: Awake, sitting up in wheelchair. Reports sleeping better last night. PAIN: Pre Therapy Pain Level: 0/10 Pain Location: N/A Pain Intervention: N/A Post Therapy Pain Level/Response to Intervention: 0/10 OBJECTIVE PRECAUTIONS: Fall precautions SWALLOWING: Patient continues to tolerate recommended diet. COGNITION: Decreased short term memory, insight and problem solving/reasoning COMMUNICATION: Mild dysarthric speech TREATMENT ACTIVITIES: Identify 4 abstract category members with 80% accuracy Identify wrong category member given 5 items with 100% accuracy EDUCATION: PATIENT/FAMILY EDUCATION: Reviewed progress with patient Response to Education: Understanding verbalized ASSESSMENT Activity Tolerance/Response to S.T.: Tolerated speech therapy session with no complaints Barriers to learning: Vision, Cognition Current status: Patient with mild/moderate decrease with thought organization. Progress toward goals: Patient continues to progress toward previously set goals which remain appropriate at this time. PLAN Multi-Disciplinary Problems (from Speech Therapy) Active Problems Problem: [facility] Start Date: 12/16/23 Goal Start Date Expected End Date End Date Formerly [facility] 1 12/16/23 12/23/23 -- Goal Details: Patient to perform short term memory tasks using compensatory strategies with 80% accuracy. Goal Start Date Expected End Date End Date Formerly [facility] 2 12/16/23 12/23/23 -- Goal Details: Patient to perform functional problem solving/reasoning tasks with 80% accuracy. Goal Start Date Expected End Date End Date Formerly [facility] 3 12/16/23 12/23/23 -- Goal Details: Patient to attend to left visual field 80% of the time given 2-3 verbal prompts. Goal Start Date Expected End Date End Date Formerly [facility] 4 12/16/23 12/23/23 -- Goal Details: Patient's speech to be 90% intelligible during conversational tasks utilizing compensatory strategies. Frequency of Treatment: BID, 5xs weekly Recommendations: Recommend home with 24 hour supervision at discharge. If this is the last note, consider this the discharge summary. * Madie Oneill, DIRECTOR OF RECRUITING - 12/23/2023 11:52 AM CDT Physical Therapy PT PROGRESS NOTE Gunjan Gtz Jr. 78 y.o. 1945 Past Medical History: Diagnosis Date Acute gastric [...] delayed healing, subsequent encounter Clotting disorder (CMS/HCC) (HCC) Complex tear of medial meniscus of left knee as current injury Complex tear of medial meniscus of right knee as current injury Cramps of lower extremity Diverticulitis of colon Easy bruisability Fatigue Frequent urination Gastroesophageal reflux disease GERD Hypothyroidism Incontinence of urine Muscle weakness Osteoarthritis Osteoarthritis Peptic ulcer Peptic ulcer disease Seizures ([facility]) 1997 last seizure in 1997 SOB (shortness of breath) on exertion Subchondral insufficiency fracture of condyle of left femur (CMS/HCC) (HCC) Vertigo Vision changes Visual disturbance hx of double vision, corrective lenses Past Surgical History: Procedure Laterality Date CATARACT EXTRACTION, BILATERAL Bilateral 2018 HERNIA REPAIR 1980 Hiatal Hernia repair KNEE ARTHROSCOPY Bilateral THYROIDECTOMY 12/27/2019 Patient Active Problem List Diagnosis Primary osteoarthritis of both knees Subchondral insufficiency fracture of condyle of left femur (CMS/HCC) (HCC) Closed fracture of left tibial plateau with delayed healing Closed fracture of right tibial plateau with delayed healing Closed nondisplaced osteochondral fracture of left patella with delayed healing Closed osteochondral fracture of patella, right, with delayed healing, subsequent encounter Complex tear of medial meniscus of right knee as current injury Complex tear of medial meniscus of left knee as current injury Goiter Breast pain, right Cataract of right eye Diplopia Esotropia Hypertropia of right eye Skin lesion of breast Edema Intermittent claudication (HCC) Iron deficiency anemia Peripheral vascular disease (HCC) Pain due to total right knee replacement (CMS/HCC) (HCC) Hamstring tendinitis of right thigh Quadriceps weakness Idiopathic peripheral neuropathy Abnormality of gait and mobility Hx of total knee replacement, right Neuropathy (CMS/HCC) 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 Biceps tendinitis of left upper extremity Tear of left glenoid labrum Coffee ground emesis Upper GI bleed Acquired hypothyroidism Acute blood loss anemia Lung nodule Nocturnal cough Hiatal hernia Infrarenal abdominal aortic aneurysm (AAA) without rupture (HCC) Acute CVA (cerebrovascular accident) (HCC) Moderate malnutrition (CMS/HCC) TIME IN: 1105 TIME OUT: 1155 SUBJECTIVE I'm tired. Patient with c/o fatigue post OT session. MENTAL STATUS/ORIENTATION: Alert and oriented x4 PAIN: Pre-therapy pain level: none at rest Pain location: R hip, L knee with activity, standing and gait Pain intervention: mobility performed to tolerance Post-therapy pain level/response to intervention: rest OBJECTIVE PRECAUTIONS: fall APPEARANCE/POSTURE: present in therapy gym, seated in w/c, arm trough intact, chair alarm intact, slight lean to the R with head turned toward the R and descended toward chin. Poor inattention to L. MOBILITY DOCUMENTATION: Bed Mobility: NT Transfers: sit <> stand with MIN assist this date after two trials. Rasheed-aide Ambulation: 12' with rasheed-aide and MOD assist, W/C follow. Patient with difficulty with correct weight shifting sequencing, remains heavy toward affected side. Short step length, able to advance L LE, narrow SHANA Stairs: NA Wheelchair management & propulsion: 20' forward KATELIN LE and R LE, decreased attention to L LE, slow mobility. TREATMENT: Patient performs seated terminal knee extension pressing foot into ball x 10 reps + 5 reps. Less command following second trial. Y R LE: #3 ankle weights, LAQ, marching x 10 reps L LE: toe taps, ankle bounces x 10 reps; short ROM LAQ and marches x 2 Patient pedals for ~ 6 minutes on restorator both forward and backward. Patient begins to slow gertrudis when he feels pain. Appearance/Posture at end of treatment session: returned to room, seated in w/c, chair alarm active, radiology requesting to obtain x-rays of patient shoulder. Assisted patient with lunch tray set up. Patient with decreased motivation to complete tasks on hisown. EDUCATION: PATIENT/FAMILY EDUCATION: seated HEP, weight shifting for gait Response to Education: needs reinforcement ASSESSMENT Activity tolerance/response to PT: FAIR Patient self limits. Patient stops or reduces activity withany pain. Patient with limited motivation to attempt activities on his own. Barriers to learning: Physical and Emotional Barriers to discharge: Pain, Limited family support, Decreased motivation, Limited insight into deficits, Unrealistic expectations, Decreased endurance, Decreased proprioception, Upper extremity weakness, Lower extremity weakness, and Stairs at home Patient continues progressing toward previously set goals which remain appropriate at this time. PLAN Patient to be seen bid 5x/week to address previously established deficits and goals. * Becky Montana MD - 12/23/2023 11:26 AM CDT INPATIENT REHABILITATION DAILY PROGRESS NOTE CHIEF COMPLAINT: right posterior limb internal capsule infarct SUBJECTIVE: States he had left shoulder pain that was uncomfortable last night. OBJECTIVE: VITALS: Vitals: 12/22/23 0800 12/22/23 0807 12/22/23 1909 12/23/23 0727 BP: 115/64 116/77 127/75 BP Location: Right arm Right arm Right arm Patient Position: Sitting Sitting Sitting Pulse: 71 76 78 Resp: 16 18 20 Temp: 36.3 ??C (97.3 ??F) 36.6 ??C (97.8 ??F) 36.3 ??C (97.3 ??F) TempSrc: Oral Temporal Temporal SpO2: 94% 95% 94% 93% Weight: Height: PHYSICAL EXAM: General: no acute distress, in chair HEENT: normocephalic, trachea midline Heart: rrr Lungs: ctab GI: soft, nontender Neuro: awake, alert LABS/RADIOLOGY/DIAGNOSTIC REVIEW Recent Labs Lab Units 12/20/23 0404 WBC K/cumm 7.9 HEMOGLOBIN g/dL 13.7 HEMATOCRIT % 42.0 PLATELETS K/cumm 253 Recent Labs Lab Units 12/20/23 0404 SODIUM mmol/L 139 POTASSIUM PLASMA mmol/L 4.6 CHLORIDE mmol/L 104 CO2 mmol/L 25 ANIONGAP mmol/L 10 GLUCOSE mg/dL 112 BUN SERUM mg/dL 19 CREATININE mg/dL 1.25 CALCIUM mg/dL 9.0 ALBUMIN g/dL 3.4* ALK PHOS Units/L 117 ALT Units/L 16 AST Units/L 24 BILIRUBIN TOTAL mg/dL 0.4 Recent Labs Lab Units 12/20/23 0404 GLUCOSE mg/dL 112 OT Functional Mobility: 12/20 Functional transfers: MOD-MAX OT Self Care: 12/20 Bathing: MAX Grooming: MAX UB dress:MOD LB dress: MAX Footwear: MAX Toileting:TOTAL NUMEROLOGIST Cognition: Mild/moderate cognitive deficits in short term memory and thought organization. NUMEROLOGIST Communication: Mild dysarthric speech. NUMEROLOGIST Swallowing: Swallow assessed by NUMEROLOGIST. Regular consistency diet/thin liquids recommended. Patientuses intermittent finger/lingual sweep and liquid wash to clear residue. PT Functional Mobility: 12/21/23: supine <> sit with MIN assist for L LE. Rolling toward L side with SBA. Sit <> stand to rasheed-aide with MOD to MIN assist. 12' gait with rasheed-aide and MOD assist. Stand pivot with rasheed-aide and MAX assist. W/C mobility 60'-75' with R LE and UE with SPV. No results found. MEDICATIONS: Current Facility-Administered Medications: acetaminophen (TYLENOL) tablet 650 mg, 650 mg, oral, Q6H PRN, Becky Montana MD, 650 mg at 12/20/23 1802 albuterol HFA (PROVENTIL HFA,VENTOLIN HFA,PROAIR HFA) 90 mcg/actuation inhaler 2 puff, 2 puff, inhalation, Q4H PRN (RT), Becky Montana MD aspirin chewable tablet 81 mg, 81 mg, oral, Daily, Becky Montana MD, 81 mg at 12/23/23 0825 calcium carbonate (TUMS) chewable tablet 1,000 mg, 400 mg of elemental calcium, oral, TID PRN, Becky Montana MD donepeziL (ARICEPT) tablet 10 mg, 10 mg, oral, Nightly, Becky Montana MD, 10 mg at 12/22/232011 enoxaparin (LOVENOX) syringe 40 mg, 40 mg, subcutaneous, Daily-2100, Becky Rudd MD, 40 mg at 12/22/232011 fluticasone furoate-vilanteroL (BREO ELLIPTA) 100-25 mcg/dose inhaler 1 puff, 1 puff, inhalation, Daily (RT), Becky Montana MD, 1 puff at 12/22/23 0800 gabapentin (NEURONTIN) capsule 300 mg, 300 mg, oral, TID, Becky Montana MD, 300 mg at 12/23/23 0825 guaiFENesin ER (MUCINEX) extended release tablet 600 mg, 600 mg, oral, BID, Jl Montana MD, 600 mg at 12/23/23 0825 levothyroxine (SYNTHROID) tablet 150 mcg, 150 mcg, oral, Daily - 0600, Becky Rudd MD, 150 mcg at 12/23/23 0620 lidocaine (LIDODERM) 5 % patch 1 patch, 1 patch, transdermal, Q24H, Becky Rudd MD ofloxacin (OCUFLOX) 0.3 % ophthalmic solution 1 drop, 1 drop, each eye, Daily PRN, Becky Montana MD ondansetron (ZOFRAN) tablet 4 mg, 4 mg, oral, TID PRN, Becky Montana MD oxyCODONE (ROXICODONE) tablet 5 mg, 5 mg, oral, Q6H PRN, Becky Montana MD pantoprazole DR (PROTONIX) extended release tablet 40 mg, 40 mg, oral, BID, Jl Montana MD, 40 mg at 12/23/23 0825 polyethylene glycol (MIRALAX) packet 17 g, 17 g, oral, Daily, Becky Montana MD, 17 gat 12/23/23 0825 ramelteon (ROZEREM) tablet 8 mg, 8 mg, oral, Nightly PRN, Becky Montana MD, 8 mg at 12/22/232011 rosuvastatin (CRESTOR) tablet 40 mg, 40 mg, oral, Daily, Becky Montana MD, 40 mg at 12/23/23 0825 senna-docusate (PERICOLACE) 8.6-50 mg per tablet 1 tablet, 1 tablet, oral, BID PRN, Becky Montana MD, 1 tablet at 12/19/23 0837 simethicone (MYLICON) chewable tablet 80 mg, 80 mg, oral, TID PRN, Becky Rudd MD tamsulosin (FLOMAX) extended release capsule 0.4 mg, 0.4 mg, oral, Nightly, Jl Montana MD, 0.4 mg at 12/22/232011 tiZANidine (ZANAFLEX) tablet 2 mg, 2 mg, oral, TID PRN, Becky Montana MD, 2 mg at 12/21/23 0858 ASSESSMENT/PLAN: MEDICAL PLAN OF CARE: 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 Impaired mobility, ADLs, transfers, gait, balance, strength, endurance, speech, cognition, swallow PT OT eval NUMEROLOGIST eval Continue aspirin 81mg, rosuvastatin 40mg Ophtho outpatient Left shoulder subluxation: slight subluxation, order left shoulder xray HTN: no current medications, monitor bp 12/15: controlled 12/16: controlled 12/19: controlled 12/20: controlled 12/21: controlled 12/22: controlled HLD: continue rosuvastatin 40mg AAA: no current medications Hypothyroidism: continue levothyroxine 150mcg GERD: continue pantoprazole 40mg bid Alzheimer: continue donepezil 10mg qhs Depression: no current medications Asthma: continue breo ellipta 100-25 daily BPH: continue flomax 0.4mg qhs Neuropathy: continue gabapentin 300mg tid Pain: Start Tylenol 650mg q6h prn, oxycodone 5mg q4h prn 12/22: lidoderm patch, decrease frequency of oxycodone to q6h prn Bowels: Start miralax daily, pericolace bid prn, simethicone prn 12/16: dulcolax 10mg x1 Nausea: Start Zofran prn, Tums prn Congestion: start mucinex 600mg bid Diet: Reg/Thin HH 2G Na DVT ppx: restart lovenox Precautions: Fall Weightbearing status: full Code: Full Code Care discussed with Nursing, NUMEROLOGIST Reviewed vital signs, intake, bowel, and bladder - as above REHAB PLAN OF CARE: Patient's expected intensity and duration of participation in the interdisciplinary rehabilitation program and disciplines that comprise this team: Therapies required to achieve goals:The patient will benefit from integrated coordination of care from the following interdisciplinary services: Medical Supervision, 24 hours Rehabilitation Nursing, Physical Therapy, Occupational Therapy, Case Management; Social Work; Therapeutic Recreation; SpeechTherapy; Flatwork Feeder Frequency and duration of therapies expect to be:Expected intensity and frequency of participation in the interdisciplinary rehab program is: 3 hours per day except Wednesday. Expected intensity and frequency of Physical Therapy (PT): 1.5 hours per day over 5-7 days for the duration of length of stay Expected intensity and frequency of Occupational Therapy (OT): 1.5 hours per day over 5-7 days per week for the duration of length of stay Expected intensity and frequency of Speech Therapy (NUMEROLOGIST): 1 hour per day per day over 5-7 days per week for the duration of length of stay FUNCTIONAL CHANGE: DISCHARGE PLANNING: Expected Discharge Date: TBD Equipment: TBD Family Training: SW to set up Education: Follow up Appointments: PCP 1-2 weeks Becky Montana MD Physical Medicine and Rehabilitation I can be reached from 7am-7pm through [employer]. Hospitalist forest fire prevention manager from 7pm-7am * Rosalia Marinelli, OT - 12/23/2023 10:00 AM CDT Occupational Therapy NOTE TYPE: OT TREATMENT (CMR BEDSIDE SESSION) Patient's Name: Gunjan Gtz JrMason Age / Sex: 78 y.o. / male Room: [facility]/[id number] : 1945 Date: 12/23/23 Time In: 1000 Time Out: 1100 Patient Active Problem List Diagnosis Primary osteoarthritis of both knees Subchondral insufficiency fracture of condyle of left femur (CMS/HCC) ([facility]) Closed fracture of left tibial plateau with delayed healing Closed fracture of right tibial plateau with delayed healing Closed nondisplaced osteochondral fracture of left patella with delayed healing Closed osteochondral fracture of patella, right, with delayed healing, subsequent encounter Complex tear of medial meniscus of right knee as current injury Complex tear of medial meniscus of left knee as current injury Goiter Breast pain, right Cataract of right eye Diplopia Esotropia Hypertropia of right eye Skin lesion of breast Edema Intermittent claudication ([facility]) Iron deficiency anemia Peripheral vascular disease ([facility]) Pain due to total right knee replacement (CMS/HCC) ([facility]) Hamstring tendinitis of right thigh Quadriceps weakness Idiopathic peripheral neuropathy Abnormality of gait and mobility Hx of total knee replacement, right Neuropathy (CMS/[facility]) 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 Biceps tendinitis of left upper extremity Tear of left glenoid labrum Coffee ground emesis Upper GI bleed Acquired hypothyroidism Acute blood loss anemia Lung nodule Nocturnal cough Hiatal hernia Infrarenal abdominal aortic aneurysm (AAA) without rupture ([facility]) Acute CVA (cerebrovascular accident) ([facility]) Moderate malnutrition (CMS/[facility]) Past Medical History: Diagnosis Date Acute gastric ulcer without hemorrhage or perforation Ulcer, gastric, acute - (Added by TW Conv) Alzheimer's dementia ([facility]) Asthma Back pain Cataract Closed fracture of left tibial plateau with delayed healing Closed fracture of right tibial plateau with delayed healing Closed nondisplaced osteochondral fracture of left patella with delayed healing Closed osteochondral fracture of patella, right, with delayed healing, subsequent encounter Clotting disorder (CMS/HCC) ([facility]) Complex tear of medial meniscus of left knee as current injury Complex tear of medial meniscus of right knee as current injury Cramps of lower extremity Diverticulitis of colon Easy bruisability Fatigue Frequent urination Gastroesophageal reflux disease GERD Hypothyroidism Incontinence of urine Muscle weakness Osteoarthritis Osteoarthritis Peptic ulcer Peptic ulcer disease Seizures ([facility]) 1997 last seizure in 1997 SOB (shortness of breath) on exertion Subchondral insufficiency fracture of condyle of left femur (CMS/HCC) ([facility]) Vertigo Vision changes Visual disturbance hx of double vision, corrective lenses Past Surgical History: Procedure Laterality Date CATARACT EXTRACTION, BILATERAL Bilateral 2018 HERNIA REPAIR 1980 Hiatal Hernia repair KNEE ARTHROSCOPY Bilateral THYROIDECTOMY 12/27/2019 Precautions (Including Weight-Bearing): Fall risk and Bed / chair alarm SUBJECTIVE: Patient agreeable Therapy Pain: Pre-therapy pain level: 0 / 10 Pain location: No pain - Location N/A Pain intervention(s): No pain - Intervention N/A Post-therapy pain level: 0 / 10 Pain scale used: 0-10 SCALE OBJECTIVE: APPEARANCE: Presentation upon OT arrival: Patient Sitting in manual wheelchair at bedside Presentation upon OT departure: PATIENT Sitting in manual wheelchair with staff assistance Bed / chair alarm in place and activated upon OT departure: Yes Call light within arms reach of patient at end of session: No - due to patient taken to physical therapy gym Completed patient handoff and notified Physical Therapist / Physical Therapist Human Resources Clerk, name: Marcia, of patient's location and functional status upon completion of session. VITAL SIGNS: Heart rate with activity: 77 BPM O2 sats with activity: 97 % Oxygen LPM: RA COGNITIVE / PERCEPTUAL: Alert and oriented to conversation. SELF CARE: Shower / Bathe Self Type of bathing: SPONGEBATHING Location of shower / bathe self: Sitting in manual wheelchair Tasks completed: ALL COMPONENTS Components that required assistance (if applicable): MAX ASSIST RIGHT ARM, MAX ASSIST BUTTOCKS, MAXASSIST LEFT LOWER LEG, INCLUDING FOOT, and MIN ASSIST RIGHT LOWER LEG, INCLUDING FOOT Overall assist level: SUBSTANTIAL / MAXIMAL ASSISTANCE: MORE THAN HALF (50% - 99%) Adaptive equipment (if applicable): no assistive device Additional documentation: MAX assist overall. Patient required min assist for standing balance at grab bar and max assist to wash buttock. Max assist to wash RUE. Oral Hygiene Location of oral hygiene: Sitting in manual wheelchair Overall assist level: PARTIAL / MODERATE ASSISTANCE: LESS THAN HALF (1% - 49%) Additional documentation: Patient required min assist to steady toothbrush when placing toothpaste Other Grooming Tasks Location of other grooming tasks: Sitting in manual wheelchair Tasks completed: COMBING HAIR and APPLYING DEODORANT Overall assist level: PARTIAL / MODERATE ASSISTANCE: LESS THAN HALF (1% - 49%) Additional documentation: MIN assist to lift LUE when applying deodorant. UE Dressing Location of UE dressing: Sitting in manual wheelchair Tasks completed: Pullover shirt and Undershirt Overall assist level: PARTIAL / MODERATE ASSISTANCE: LESS THAN HALF (1% - 49%) Additional documentation: MIN to don undershirt with mod verbal cueing for rasheed technique. Max assist to don pullover shirt LE Dressing (Underwear / Pants) Location of LE dressing (Underwear / Pants): Sitting in manual wheelchair and Standing at grab bar Tasks completed: Elastic waist pants and Incontinence briefs as underwear Overall assist level: SUBSTANTIAL / MAXIMAL ASSISTANCE: MORE THAN HALF (50% - 99%) Additional documentation: MAX assist overall. Mod assist to thread LLE. MAX assist for hip components in standing with min assist for standing at grab bar Putting On / Taking Off Footwear Location of putting on / taking off footwear: Sitting in manual wheelchair Tasks completed: Sock(s) and Slip-on shoe(s) Overall assist level: SUBSTANTIAL / MAXIMAL ASSISTANCE: MORE THAN HALF (50% - 99%) Additional documentation: Patient educated on use of sock aide to assist with donning socks. Patient attempts use sock aide, however unable to successfully complete. OT then educated patient on one handed technique to don socks. Patient required mod assist for completion on LLE. Max assist to don sock on RLE. Max assist to don slip on shoes with use of long handled shoe horn Toileting Location: SITTING ON STANDARD TOILET and STANDING AT STANDARD TOILET Tasks completed: HYGIENE MANAGEMENT, CLOTHING MANAGEMENT PRE-TOILETING, and CLOTHING MANAGEMENT POST-TOILETING Overall assist level: TOTAL / DEPENDENT ASSISTANCE (100% / TWO OR MORE HELPERS) Additional documentation: Patient required mod assist to maintain standing balance at grab bar and max assist of another to complete clothing management and sandra care after continent BM MOBILITY: Toilet transfer Location: STANDARD TOILET Overall assist level: PARTIAL / MODERATE ASSISTANCE: LESS THAN HALF (1% - 49%) Device: GRAB BARS Additional documentation: Mod assist for stand pivot transfer w/c to standard toilet with use of grab bar HEARING / SPEECH / VISION: Expression of ideas and wants Overall assist level: WITHOUT DIFFICULTY Understanding verbal and non-verbal content Overall assist level: UNDERSTANDS Caregiver present (yes / no): No Education & training provided: Role of OT, OT plan of care, ADL training, Compensatory ADL strategies, Rasheed / One-handed techniques, Functional transfer training, and Safety education ASSESSMENT: Activity tolerance / response to OT: GOOD PARTICIPATION, GOOD MOTIVATION, and RECEPTIVE TO EDUCATION / TRAINING Progress towards goals: Please refer to Care Plan from this date for progress towards individual goals. PLAN: Therapy Plan: Please refer to most recent Inpatient Rehabilitation Team Conference note for discharge plan, including location, recommended level of supervision, and arrangements. Frequency of therapy: BID SESSIONS 5 DAYS / WEEK TO ADDRESS PREVIOUSLY ESTABLISHED DEFICITS AND GOALS Rosalia Marinelli OT 12/23/23 * Krystle Cruz OT - 12/22/2023 3:43 PM CDT Occupational Therapy NOTE TYPE: OT TREATMENT (CMR DEPARTMENT SESSION) PATIENT'S NAME: Gunjan Gtz Jr. AGE / SEX: 78 y.o. / male ROOM: [place] [id number] : 1945 DATE: 12/22/23 TIME IN: 1336 TIME OUT: 1414 Patient Active Problem List Diagnosis Primary osteoarthritis of both knees Subchondral insufficiency fracture of condyle of left femur (CMS/HCC) (HCC) Closed fracture of left tibial plateau with delayed healing Closed fracture of right tibial plateau with delayed healing Closed nondisplaced osteochondral fracture of left patella with delayed healing Closed osteochondral fracture of patella, right, with delayed healing, subsequent encounter Complex tear of medial meniscus of right knee as current injury Complex tear of medial meniscus of left knee as current injury Goiter Breast pain, right Cataract of right eye Diplopia Esotropia Hypertropia of right eye Skin lesion of breast Edema Intermittent claudication (HCC) Iron deficiency anemia Peripheral vascular disease (HCC) Pain due to total right knee replacement (CMS/HCC) (HCC) Hamstring tendinitis of right thigh Quadriceps weakness Idiopathic peripheral neuropathy Abnormality of gait and mobility Hx of total knee replacement, right Neuropathy (CMS/HCC) 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 Biceps tendinitis of left upper extremity Tear of left glenoid labrum Coffee ground emesis Upper GI bleed Acquired hypothyroidism Acute blood loss anemia Lung nodule Nocturnal cough Hiatal hernia Infrarenal abdominal aortic aneurysm (AAA) without rupture (HCC) Acute CVA (cerebrovascular accident) (HCC) Moderate malnutrition (CMS/HCC) Past Medical History: Diagnosis Date Acute gastric [...] delayed healing, subsequent encounter Clotting disorder (CMS/HCC) ([facility]) Complex tear of medial meniscus of left knee as current injury Complex tear of medial meniscus of right knee as current injury Cramps of lower extremity Diverticulitis of colon Easy bruisability Fatigue Frequent urination Gastroesophageal reflux disease GERD Hypothyroidism Incontinence of urine Muscle weakness Osteoarthritis Osteoarthritis Peptic ulcer Peptic ulcer disease Seizures ([facility]) 1997 last seizure in 1997 SOB (shortness of breath) on exertion Subchondral insufficiency fracture of condyle of left femur (CMS/HCC) ([facility]) Vertigo Vision changes Visual disturbance hx of double vision, corrective lenses Past Surgical History: Procedure Laterality Date CATARACT EXTRACTION, BILATERAL Bilateral 2018 HERNIA REPAIR 1979 Hiatal Hernia repair KNEE ARTHROSCOPY Bilateral THYROIDECTOMY 12/27/2019 PRECAUTIONS (INCLUDING WEIGHT-BEARING): Fall risk and Bed / chair alarm SUBJECTIVE: Pt agreeable THERAPY PAIN: PRE-THERAPY PAIN LEVEL: 0 / 10 PAIN LOCATION: No pain - Location N/A PAIN INTERVENTION(S): No pain - Intervention N/A POST-THERAPY PAIN LEVEL: 0 / 10 PAIN SCALE USED: 0-10 SCALE OBJECTIVE: APPEARANCE: PRESENTATION UPON OT ARRIVAL: PATIENT Sitting in bedside recliner PRESENTATION UPON OT DEPARTURE: PATIENT Sitting in manual wheelchair with staff assistance BED / CHAIR ALARM IN PLACE AND ACTIVATED UPON OT DEPARTURE: Yes CALL LIGHT WITHIN ARMS REACH OF PATIENT AT END OF SESSION: No - due to patient taken to physical therapy gym COMPLETED PATIENT HANDOFF AND NOTIFIED Physical Therapist / Physical Therapist Human Resources Clerk, NAME: Marcia, OF PATIENT'S LOCATION AND FUNCTIONAL STATUS UPON COMPLETION OF SESSION VITAL SIGNS: Vitals stable throughout session, no signs or symptoms of adverse reactions COGNITIVE / PERCEPTUAL: Patient alert and oriented x 4, following 100% 1 step commands UE THERAPEUTIC EXERCISES: ACTIVITIES: E-stim for muscle re-education (OVERALL ASSIST LEVEL): hand over hand LOCATION: seated ACTIVITY DESCRIPTION: Patient participated in E-stim activity for wrist/hand muscle re-education with the following settings: Wavelength:VMS , with cycle time of 10 on 12 off, ramp at 2 seconds, withamplitude at 33 mA CC. Patient demonstrated good tolerance for activity. Patient participated in activity for 15 minutes. MIN VC required to maintain attention to task completion. MOBILITY: TRANSFERS: sit<>stand at rasheed aid with MOD A. 2-3 step pivot transfer to w/c with MOD A x 1 and CG assist x 2nd person. CAREGIVER PRESENT (YES / NO): No EDUCATION & TRAINING PROVIDED: Role of OT, OT plan of care, Pursed lip breathing / Relaxation techniques, and Energy conservation education ASSESSMENT: ACTIVITY TOLERANCE / RESPONSE TO OT: GOOD PARTICIPATION, GOOD MOTIVATION, and RECEPTIVE TO EDUCATION / TRAINING PROGRESS TOWARDS GOALS: PLEASE REFER TO CARE PLAN FROM THIS DATE FOR PROGRESS TOWARDS INDIVIDUAL GOALS PLAN: PLEASE REFER TO MOST RECENT INPATIENT REHABILITATION TEAM CONFERENCE NOTE FOR DISCHARGE PLAN, INCLUDING LOCATION, RECOMMENDED LEVEL OF SUPERVISION AND ARRANGEMENTS. FREQUENCY OF THERAPY: BID SESSIONS 5 DAYS / WEEK TO ADDRESS PREVIOUSLY ESTABLISHED DEFICITS AND GOALS Krystle Cruz OT 12/22/23 * Paresh Prieto, NUMEROLOGIST - 12/22/2023 2:17 PM CDT SPEECH LANGUAGE PATHOLOGY PROGRESS NOTE Patient's Name: Gunjan Gtz Jr. : 1945 Age: 78 y.o. Time In: 13:00 Time Out: 13:28 Patient Active Problem List Diagnosis Primary osteoarthritis of both knees Subchondral insufficiency fracture of condyle of left femur (CMS/HCC) ([facility]) Closed fracture of left tibial plateau with delayed healing Closed fracture of right tibial plateau with delayed healing Closed nondisplaced osteochondral fracture of left patella with delayed healing Closed osteochondral fracture of patella, right, with delayed healing, subsequent encounter Complex tear of medial meniscus of right knee as current injury Complex tear of medial meniscus of left knee as current injury Goiter Breast pain, right Cataract of right eye Diplopia Esotropia Hypertropia of right eye Skin lesion of breast Edema Intermittent claudication (HCC) Iron deficiency anemia Peripheral vascular disease ([facility]) Pain due to total right knee replacement (CMS/HCC) ([facility]) Hamstring tendinitis of right thigh Quadriceps weakness Idiopathic peripheral neuropathy Abnormality of gait and mobility Hx of total knee replacement, right Neuropathy (CMS/HCC) 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 Biceps tendinitis of left upper extremity Tear of left glenoid labrum Coffee ground emesis Upper GI bleed Acquired hypothyroidism Acute blood loss anemia Lung nodule Nocturnal cough Hiatal hernia Infrarenal abdominal aortic aneurysm (AAA) without rupture ([facility]) Acute CVA (cerebrovascular accident) ([facility]) Moderate malnutrition (CMS/[facility]) Past Medical History: Diagnosis Date Acute gastric ulcer without hemorrhage or perforation Ulcer, gastric, acute - (Added by TW Conv) Alzheimer's dementia ([facility]) Asthma Back pain Cataract Closed fracture of left tibial plateau with delayed healing Closed fracture of right tibial plateau with delayed healing Closed nondisplaced osteochondral fracture of left patella with delayed healing Closed osteochondral fracture of patella, right, with delayed healing, subsequent encounter Clotting disorder (CMS/HCC) ([facility]) Complex tear of medial meniscus of left knee as current injury Complex tear of medial meniscus of right knee as current injury Cramps of lower extremity Diverticulitis of colon Easy bruisability Fatigue Frequent urination Gastroesophageal reflux disease GERD Hypothyroidism Incontinence of urine Muscle weakness Osteoarthritis Osteoarthritis Peptic ulcer Peptic ulcer disease Seizures ([facility]) 1997 last seizure in 1997 SOB (shortness of breath) on exertion Subchondral insufficiency fracture of condyle of left femur (CMS/HCC) ([facility]) Vertigo Vision changes Visual disturbance hx of double vision, corrective lenses Past Surgical History: Procedure Laterality Date CATARACT EXTRACTION, BILATERAL Bilateral 2018 HERNIA REPAIR 1979 Hiatal Hernia repair KNEE ARTHROSCOPY Bilateral THYROIDECTOMY 12/27/2019 SUBJECTIVE MENTAL STATUS: Awake, sitting up in recliner. Family member present in room. Reports improvement with vision. PAIN: Pre Therapy Pain Level: 0/10 Pain Location: N/A Pain Intervention: N/A Post Therapy Pain Level/Response to Intervention: 0/10 OBJECTIVE PRECAUTIONS: Fall SWALLOWING: Patient continues to tolerate regular consistency diet/thin liquids COGNITION: Cognitive deficits in memory, insight and thought organization COMMUNICATION: Mild dysarthric speech TREATMENT ACTIVITIES: Oral motor exercises 10xs each Recall daily activities/recent events with 100% accuracy EDUCATION: PATIENT/FAMILY EDUCATION: Discussed in length discharge recommendations, progress in therapies, andgoals. Response to Education: Understanding verbalized ASSESSMENT Activity Tolerance/Response to S.T.: Tolerated speech therapy session with no complaints Barriers to learning: Cognition, Vision Current status: Patient with left facial weakness and asymmetry. Able to complete oral motor exercises with minimal verbal cues. Progress toward goals: Patient continues to progress toward previously set goals which remain appropriate at this time. PLAN Multi-Disciplinary Problems (from Speech Therapy) Active Problems Problem: NUMEROLOGIST [facility] Start Date: 12/16/23 Goal Start Date Expected End Date End Date [facility] [place]16[place]23 12/23/23 -- Goal Details: Patient to perform short term memory tasks using compensatory strategies with 80% accuracy. Goal Start Date Expected End Date End Date [facility] [place] 12/16/23 12/23/23 -- Goal Details: Patient to perform functional problem solving/reasoning tasks with 80% accuracy. Goal Start Date Expected End Date End Date [facility] 3 12/16/23 12/23/23 -- Goal Details: Patient to attend to left visual field 80% of the time given 2-3 verbal prompts. Goal Start Date Expected End Date End Date [facility] 4 12/16/23 12/23/23 -- Goal Details: Patient's speech to be 90% intelligible during conversational tasks utilizing compensatory strategies. Frequency of Treatment: BID, 5xs weekly Recommendations: Recommend home with 24 hour supervision If this is the last note, consider this the discharge summary. * Madie Oneill, DIRECTOR OF RECRUITING - 12/22/2023 1:11 PM CDT Physical Therapy PT PROGRESS NOTE Gunjan Gtz Jr. 78 y.o. 1945 Past Medical History: Diagnosis Date Acute gastric [...] delayed healing, subsequent encounter Clotting disorder (CMS/HCC) ([facility]) Complex tear of medial meniscus of left knee as current injury Complex tear of medial meniscus of right knee as current injury Cramps of lower extremity Diverticulitis of colon Easy bruisability Fatigue Frequent urination Gastroesophageal reflux disease GERD Hypothyroidism Incontinence of urine Muscle weakness Osteoarthritis Osteoarthritis Peptic ulcer Peptic ulcer disease Seizures (HCC) 1997 last seizure in 1997 SOB (shortness of breath) on exertion Subchondral insufficiency fracture of condyle of left femur (CMS/HCC) ([facility]) Vertigo Vision changes Visual disturbance hx of double vision, corrective lenses Past Surgical History: Procedure Laterality Date CATARACT EXTRACTION, BILATERAL Bilateral 2018 HERNIA REPAIR 1980 Hiatal Hernia repair KNEE ARTHROSCOPY Bilateral THYROIDECTOMY 12/27/2019 Patient Active Problem List Diagnosis Primary osteoarthritis of both knees Subchondral insufficiency fracture of condyle of left femur (CMS/HCC) (HCC) Closed fracture of left tibial plateau with delayed healing Closed fracture of right tibial plateau with delayed healing Closed nondisplaced osteochondral fracture of left patella with delayed healing Closed osteochondral fracture of patella, right, with delayed healing, subsequent encounter Complex tear of medial meniscus of right knee as current injury Complex tear of medial meniscus of left knee as current injury Goiter Breast pain, right Cataract of right eye Diplopia Esotropia Hypertropia of right eye Skin lesion of breast Edema Intermittent claudication (HCC) Iron deficiency anemia Peripheral vascular disease (HCC) Pain due to total right knee replacement (CMS/HCC) (HCC) Hamstring tendinitis of right thigh Quadriceps weakness Idiopathic peripheral neuropathy Abnormality of gait and mobility Hx of total knee replacement, right Neuropathy (CMS/HCC) 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 Biceps tendinitis of left upper extremity Tear of left glenoid labrum Coffee ground emesis Upper GI bleed Acquired hypothyroidism Acute blood loss anemia Lung nodule Nocturnal cough Hiatal hernia Infrarenal abdominal aortic aneurysm (AAA) without rupture (HCC) Acute CVA (cerebrovascular accident) (HCC) Moderate malnutrition (CMS/HCC) TIME IN: 1105 TIME OUT: 1150 TIME IN PM: 230 TIME OUT PM: 317 SUBJECTIVE I want to do the e-stim. Patient is agreeable to therapy. PM: It didn't work. Patient referring to trial of e-stim this afternoon. Patient is agreeable to therapy. MENTAL STATUS/ORIENTATION: Alert and oriented x4 and decreased safety insight PAIN: Pre-therapy pain level: none at rest Pain location: R hip post ambulation Pain intervention: mobility performed to tolerance Post-therapy pain level/response to intervention: 03/20 - requesting pain medications PM: Pain complaint of R hip pain post session. OBJECTIVE PRECAUTIONS: fall APPEARANCE/POSTURE: AM and PM present in therapy gym, seated in w/c, chair alarm active MOBILITY DOCUMENTATION: Bed Mobility: PM: Rolling toward R side for supine to sit patient requires MIN assist for L LE and MOD assist to manage trunk. MAX v/c regarding sequencing. Sit to supine lifting with MIN assist to manage L LE onto mat surface. Transfers: sit <> stand from w/c and elevated mat surface with MOD to MIN assist. Patient improving in correct body mechanics / sequencing. Sit <> stand from w/c and mat with MIN assist to rasheed-aide. PM: Transfers from W/C <> mat and W/C to recliner with rasheed-aide and MIN regressing to MOD assist for safety, weight shifting, device placement, command following ,sequencing following. Decreased motor planning / problem solving. Ambulation: 12' forward with rasheed-aide and MOD to nearly MIN assist. Improved movement of L LE, difficulty with placement. Placement is narrow. Decreased strength of L LE. Narrow SHANA Step to pattern One episode of knee buckling during transfer with MOD assist to recover. PM: 16' forward with rasheed-aide and initially MIN assist regressing to MOD assist with fatigue. Increased knee flexion toward end of bout. Narrow SHANA Step to pattern. Stairs: NA Wheelchair management & propulsion: NT TREATMENT: Trial 3 separate AFO for fit - unable to fit into shoe. PM: Trial of [place] walk-on in either pair of shoes, unable to fit in shoe. Additional discussion with PT in PM and this device is not appropriate for patient at this point. PM: Patient performs supine HEP x 10 reps as stated: L LE: AP, heel slides with MIN assist R LE: heel slides, SAQ Appearance/Posture at end of treatment session: AM and PM returned to recliner. Chair alarm active,call light in reach. EDUCATION: PATIENT/FAMILY EDUCATION: transfers, gait, sequencing Response to Education: needs reinforcement ASSESSMENT Activity tolerance/response to PT: GOOD Patient is mildly resistive to training and education. Coordination and motor planning difficulties. Barriers to learning: Physical and Cognitive Barriers to discharge: Pain, Limited family support, Limited safety awareness, Limited insight intodeficits, Unrealistic expectations, Decreased endurance, Decreased proprioception, Upper extremity weakness, Lower extremity weakness, and Stairs at home Patient continues progressing toward previously set goals which remain appropriate at this time. PLAN Patient to be seen bid 5x/week to address previously established deficits and goals. * Becky Montana MD - 12/22/2023 11:04 AM CDT INPATIENT REHABILITATION DAILY PROGRESS NOTE CHIEF COMPLAINT: right posterior limb internal capsule infarct SUBJECTIVE: Sleeping this am OBJECTIVE: VITALS: Vitals: 12/21/23 0721 12/21/23 1950 12/22/23 0800 12/22/23 0807 BP: 127/80 115/64 BP Location: Right arm Right arm Patient Position: Sitting Sitting Pulse: 76 71 Resp: 17 16 Temp: 36.5 ??C (97.7 ??F) 36.3 ??C (97.3 ??F) TempSrc: Oral Oral SpO2: 96% 95% 94% 95% Weight: Height: PHYSICAL EXAM: General: no acute distress, in recliner HEENT: normocephalic, trachea midline Heart: Lungs: GI: Neuro: sleeping LABS/RADIOLOGY/DIAGNOSTIC REVIEW Recent Labs Lab Units 12/20/23 0404 WBC K/cumm 7.9 HEMOGLOBIN g/dL 13.7 HEMATOCRIT % 42.0 PLATELETS K/cumm 253 Recent Labs Lab Units 12/20/23 0404 SODIUM mmol/L 139 POTASSIUM PLASMA mmol/L 4.6 CHLORIDE mmol/L 104 CO2 mmol/L 25 ANIONGAP mmol/L 10 GLUCOSE mg/dL 112 BUN SERUM mg/dL 19 CREATININE mg/dL 1.25 CALCIUM mg/dL 9.0 ALBUMIN g/dL 3.4* ALK PHOS Units/L 117 ALT Units/L 16 AST Units/L 24 BILIRUBIN TOTAL mg/dL 0.4 Recent Labs Lab Units 12/20/23 0404 12/16/23 0411 GLUCOSE mg/dL 112 107 OT Functional Mobility: 12/20 Functional transfers: MOD-MAX OT Self Care: 12/20 Bathing: MAX Grooming: MAX UB dress:MOD LB dress: MAX Footwear: MAX Toileting:TOTAL NUMEROLOGIST Cognition: Mild/moderate cognitive deficits in short term memory and thought organization. NUMEROLOGIST Communication: Mild dysarthric speech. NUMEROLOGIST Swallowing: Swallow assessed by NUMEROLOGIST. Regular consistency diet/thin liquids recommended. Patientuses intermittent finger/lingual sweep and liquid wash to clear residue. PT Functional Mobility: 12/21/23: supine <> sit with MIN assist for L LE. Rolling toward L side with SBA. Sit <> stand to rasheed-aide with MOD to MIN assist. 12' gait with rasheed-aide and MOD assist. Stand pivot with rasheed-aide and MAX assist. W/C mobility 60'-75' with R LE and UE with SPV. No results found. MEDICATIONS: Current Facility-Administered Medications: acetaminophen (TYLENOL) tablet 650 mg, 650 mg, oral, Q6H PRN, Becky Montana MD, 650 mg at 12/20/23 1802 albuterol HFA (PROVENTIL HFA,VENTOLIN HFA,PROAIR HFA) 90 mcg/actuation inhaler 2 puff, 2 puff, inhalation, Q4H PRN (RT), Becky Montana MD aspirin chewable tablet 81 mg, 81 mg, oral, Daily, Becky Montana MD, 81 mg at 12/22/23 0850 calcium carbonate (TUMS) chewable tablet 1,000 mg, 400 mg of elemental calcium, oral, TID PRN, Becky Montana MD donepeziL (ARICEPT) tablet 10 mg, 10 mg, oral, Nightly, Becky Montana MD, 10 mg at 12/21/232014 enoxaparin (LOVENOX) syringe 40 mg, 40 mg, subcutaneous, Daily-2100, Becky Rudd MD, 40 mg at 12/21/232014 fluticasone furoate-vilanteroL (BREO ELLIPTA) 100-25 mcg/dose inhaler 1 puff, 1 puff, inhalation, Daily (RT), Becky Montana MD, 1 puff at 12/22/23 0800 gabapentin (NEURONTIN) capsule 300 mg, 300 mg, oral, TID, Becky Montana MD, 300 mg at 12/22/23 0850 guaiFENesin ER (MUCINEX) extended release tablet 600 mg, 600 mg, oral, BID, Jl Montana MD, 600 mg at 12/22/23 0850 levothyroxine (SYNTHROID) tablet 150 mcg, 150 mcg, oral, Daily - 0600, Becky Rudd MD, 150 mcg at 12/22/23 0613 ofloxacin (OCUFLOX) 0.3 % ophthalmic solution 1 drop, 1 drop, each eye, Daily PRN, Becky Montana MD ondansetron (ZOFRAN) tablet 4 mg, 4 mg, oral, TID PRN, Becky Montana MD oxyCODONE (ROXICODONE) tablet 5 mg, 5 mg, oral, Q4H PRN, Becky Montana MD, 5 mg at 12/21/[address] (PROTONIX) extended release tablet 40 mg, 40 mg, oral, BID, Jl Montana MD, 40 mg at 12/22/23 0850 polyethylene glycol (MIRALAX) packet 17 g, 17 g, oral, Daily, Becky Montana MD, 17 gat 12/20/23 0822 ramelteon (ROZEREM) tablet 8 mg, 8 mg, oral, Nightly PRN, Becky Montana MD, 8 mg at 12/21/232016 rosuvastatin (CRESTOR) tablet 40 mg, 40 mg, oral, Daily, Becky Montana MD, 40 mg at 12/22/23 0850 senna-docusate (PERICOLACE) 8.6-50 mg per tablet 1 tablet, 1 tablet, oral, BID PRN, Becky Montana MD, 1 tablet at 12/19/23 0837 simethicone (MYLICON) chewable tablet 80 mg, 80 mg, oral, TID PRN, Becky Rudd MD tamsulosin (FLOMAX) extended release capsule 0.4 mg, 0.4 mg, oral, Nightly, Jl Montana MD, 0.4 mg at 12/21/232014 tiZANidine (ZANAFLEX) tablet 2 mg, 2 mg, oral, TID PRN, Becky Montana MD, 2 mg at 12/21/23 0858 ASSESSMENT/PLAN: MEDICAL PLAN OF CARE: 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 Impaired mobility, ADLs, transfers, gait, balance, strength, endurance, speech, cognition, swallow PT OT eval NUMEROLOGIST eval Continue aspirin 81mg, rosuvastatin 40mg Ophtho outpatient HTN: no current medications, monitor bp 12/15: controlled 12/16: controlled 12/19: controlled 12/20: controlled 12/21: controlled HLD: continue rosuvastatin 40mg AAA: no current medications Hypothyroidism: continue levothyroxine 150mcg GERD: continue pantoprazole 40mg bid Alzheimer: continue donepezil 10mg qhs Depression: no current medications Asthma: continue breo ellipta 100-25 daily BPH: continue flomax 0.4mg qhs Neuropathy: continue gabapentin 300mg tid Pain: Start Tylenol 650mg q6h prn, oxycodone 5mg q4h prn Bowels: Start miralax daily, pericolace bid prn, simethicone prn 12/16: dulcolax 10mg x1 Nausea: Start Zofran prn, Tums prn Congestion: start mucinex 600mg bid Diet: Reg/Thin HH 2G Na DVT ppx: restart lovenox Precautions: Fall Weightbearing status: full Code: Full Code Care discussed with Nursing Reviewed vital signs, intake, bowel, and bladder - as above Case conference today, refer to note for further information REHAB PLAN OF CARE: Patient's expected intensity and duration of participation in the interdisciplinary rehabilitation program and disciplines that comprise this team: Therapies required to achieve goals:The patient will benefit from integrated coordination of care from the following interdisciplinary services: Medical Supervision, 24 hours Rehabilitation Nursing, Physical Therapy, Occupational Therapy, Case Management; Social Work; Therapeutic Recreation; SpeechTherapy; Flatwork Feeder Frequency and duration of therapies expect to be:Expected intensity and frequency of participation in the interdisciplinary rehab program is: 3 hours per day except Wednesday. Expected intensity and frequency of Physical Therapy (PT): 1.5 hours per day over 5-7 days for the duration of length of stay Expected intensity and frequency of Occupational Therapy (OT): 1.5 hours per day over 5-7 days per week for the duration of length of stay Expected intensity and frequency of Speech Therapy (NUMEROLOGIST): 1 hour per day per day over 5-7 days per week for the duration of length of stay FUNCTIONAL CHANGE: Sit to stand: MODA with hemicane DISCHARGE PLANNING: Expected Discharge Date: TBD Equipment: TBD Family Training: SW to set up Education: Follow up Appointments: PCP 1-2 weeks Becky Montana MD Physical Medicine and Rehabilitation I can be reached from 7am-7pm through [email or web address] chat. Hospitalist forest fire prevention manager from 7pm-7am * Krystle Cruz OT - 12/22/2023 10:26 AM CDT Images from the original note were not included. Occupational Therapy NOTE TYPE: OT TREATMENT ([facility] BEDSIDE SESSION) Patient's Name: Gunjan Gtz Jr. Age / Sex: 78 y.o. / male Room: [place] [id number] : 1945 Date: 12/22/23 Time In: 1004 Time Out: 1103 Patient Active Problem List Diagnosis Primary osteoarthritis of both knees Subchondral insufficiency fracture of condyle of left femur (CMS/HCC) (HCC) Closed fracture of left tibial plateau with delayed healing Closed fracture of right tibial plateau with delayed healing Closed nondisplaced osteochondral fracture of left patella with delayed healing Closed osteochondral fracture of patella, right, with delayed healing, subsequent encounter Complex tear of medial meniscus of right knee as current injury Complex tear of medial meniscus of left knee as current injury Goiter Breast pain, right Cataract of right eye Diplopia Esotropia Hypertropia of right eye Skin lesion of breast Edema Intermittent claudication (HCC) Iron deficiency anemia Peripheral vascular disease (HCC) Pain due to total right knee replacement (CMS/HCC) (HCC) Hamstring tendinitis of right thigh Quadriceps weakness Idiopathic peripheral neuropathy Abnormality of gait and mobility Hx of total knee replacement, right Neuropathy (CMS/HCC) 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 Biceps tendinitis of left upper extremity Tear of left glenoid labrum Coffee ground emesis Upper GI bleed Acquired hypothyroidism Acute blood loss anemia Lung nodule Nocturnal cough Hiatal hernia Infrarenal abdominal aortic aneurysm (AAA) without rupture ([facility]) Acute CVA (cerebrovascular accident) ([facility]) Moderate malnutrition (CMS/HCC) Past Medical History: Diagnosis Date Acute gastric ulcer without hemorrhage or perforation Ulcer, gastric, acute - (Added by TW Conv) Alzheimer's dementia ([facility]) Asthma Back pain Cataract Closed fracture of left tibial plateau with delayed healing Closed fracture of right tibial plateau with delayed healing Closed nondisplaced osteochondral fracture of left patella with delayed healing Closed osteochondral fracture of patella, right, with delayed healing, subsequent encounter Clotting disorder (CMS/HCC) ([facility]) Complex tear of medial meniscus of left knee as current injury Complex tear of medial meniscus of right knee as current injury Cramps of lower extremity Diverticulitis of colon Easy bruisability Fatigue Frequent urination Gastroesophageal reflux disease GERD Hypothyroidism Incontinence of urine Muscle weakness Osteoarthritis Osteoarthritis Peptic ulcer Peptic ulcer disease Seizures ([facility]) 1997 last seizure in 1997 SOB (shortness of breath) on exertion Subchondral insufficiency fracture of condyle of left femur (CMS/HCC) ([facility]) Vertigo Vision changes Visual disturbance hx of double vision, corrective lenses Past Surgical History: Procedure Laterality Date CATARACT EXTRACTION, BILATERAL Bilateral 2018 HERNIA REPAIR 1979 Hiatal Hernia repair KNEE ARTHROSCOPY Bilateral THYROIDECTOMY 12/27/2019 Expand All Collapse All Occupational Therapy NOTE TYPE: OT TREATMENT ([facility] BEDSIDE SESSION) Patient's Name: Gunjan Gtz Jr. Age / Sex: 78 y.o. / male Room: [place] [id number] : 1945 Date: 12/21/23 Time In: 1010 Time Out: 1100 Patient Active Problem List Diagnosis Primary osteoarthritis of both knees Subchondral insufficiency fracture of condyle of left femur (CMS/HCC) ([facility]) Closed fracture of left tibial plateau with delayed healing Closed fracture of right tibial plateau with delayed healing Closed nondisplaced osteochondral fracture of left patella with delayed healing Closed osteochondral fracture of patella, right, with delayed healing, subsequent encounter Complex tear of medial meniscus of right knee as current injury Complex tear of medial meniscus of left knee as current injury Goiter Breast pain, right Cataract of right eye Diplopia Esotropia Hypertropia of right eye Skin lesion of breast Edema Intermittent claudication ([facility]) Iron deficiency anemia Peripheral vascular disease ([facility]) Pain due to total right knee replacement (CMS/HCC) ([facility]) Hamstring tendinitis of right thigh Quadriceps weakness Idiopathic peripheral neuropathy Abnormality of gait and mobility Hx of total knee replacement, right Neuropathy (CMS/HCC) 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 Biceps tendinitis of left upper extremity Tear of left glenoid labrum Coffee ground emesis Upper GI bleed Acquired hypothyroidism Acute blood loss anemia Lung nodule Nocturnal cough Hiatal hernia Infrarenal abdominal aortic aneurysm (AAA) without rupture (HCC) Acute CVA (cerebrovascular accident) (HCC) Moderate malnutrition (CMS/HCC) Precautions (Including Weight-Bearing): Fall risk and Bed / chair alarm SUBJECTIVE: Patient agreeable Therapy Pain: Pre-therapy pain level: 0 / 10 Pain location: No pain - Location N/A Pain intervention(s): No pain - Intervention N/A Post-therapy pain level: 0 / 10 Pain scale used: 0-10 SCALE OBJECTIVE: APPEARANCE: Presentation upon OT arrival: Patient Sitting in bedside recliner Presentation upon OT departure: PATIENT Sitting in manual wheelchair with staff assistance Bed / chair alarm in place and activated upon OT departure: Yes Call light within arms reach of patient at end of session: No - due to patient taken to physical therapy gym Completed patient handoff and notified Physical Therapist / Physical Therapist Human Resources Clerk, name: Marcia, of patient's location and functional status upon completion of session. COGNITIVE / PERCEPTUAL: Alert and oriented to conversation SELF CARE: Shower / Bathe Self Type of bathing: WET WALK IN SHOWER Location of shower / bathe self: Sitting at tub transfer bench Tasks completed: ALL COMPONENTS Components that required assistance (if applicable): MAX ASSIST RIGHT ARM, MIN ASSIST LEFT ARM, MAXASSIST BUTTOCKS, MAX ASSIST LEFT LOWER LEG, INCLUDING FOOT, and MAX ASSIST RIGHT LOWER LEG, INCLUDING FOOT Overall assist level: SUBSTANTIAL / MAXIMAL ASSISTANCE: MORE THAN HALF (50% - 99%) Adaptive equipment (if applicable): hand held shower head Additional documentation: MAX assist overall. Patient utilizes side to side leaning technique for buttock component. Oral Hygiene Location of oral hygiene: Sitting in manual wheelchair Overall assist level: SUPERVISION ASSISTANCE / VERBAL CUES Additional documentation: N/A Other Grooming Tasks Location of other grooming tasks: Sitting in manual wheelchair Tasks completed: APPLYING DEODORANT Overall assist level: SUBSTANTIAL / MAXIMAL ASSISTANCE: MORE THAN HALF (50% - 99%) Additional documentation: Max assist to apply spray deodorant UE Dressing Location of UE dressing: Sitting in manual wheelchair Tasks completed: Pullover shirt Overall assist level: MIN A Additional documentation: Patient initiates rasheed technique LE Dressing (Underwear / Pants) Location of LE dressing (Underwear / Pants): Sitting in manual wheelchair and Standing at grab bar Tasks completed: Elastic waist pants and Incontinence briefs as underwear Overall assist level: SUBSTANTIAL / MAXIMAL ASSISTANCE: MORE THAN HALF (50% - 99%) Additional documentation: MAX assist overall. Mod assist to thread LLE. Min A to stand at grab bar with MAX A for hip components. Putting On / Taking Off Footwear Location of putting on / taking off footwear: Sitting in manual wheelchair Tasks completed: Sock(s) and Slip-on shoe(s) Overall assist level: SUBSTANTIAL / MAXIMAL ASSISTANCE: MORE THAN HALF (50% - 99%) Additional documentation: N/A MOBILITY: Transfers: Min assist for stand pivot transfer from recliner to w/c utlizing rasheed-aid Min A x 1 with SBA x 2nd person for stand pivot transfer from w/c to shower bench utilizing grab bar. HEARING / SPEECH / VISION: Expression of ideas and wants Overall assist level: WITHOUT DIFFICULTY Understanding verbal and non-verbal content Overall assist level: UNDERSTANDS Caregiver present (yes / no): No Education & training provided: Role of OT, OT plan of care, ADL training, Compensatory ADL strategies, Rasheed / One-handed techniques, Functional transfer training, and Safety education ASSESSMENT: Activity tolerance / response to OT: GOOD PARTICIPATION, GOOD MOTIVATION, and RECEPTIVE TO EDUCATION / TRAINING Progress towards goals: Please refer to Care Plan from this date for progress towards individual goals. PLAN: Therapy Plan: Please refer to most recent Inpatient Rehabilitation Team Conference note for discharge plan, including location, recommended level of supervision, and arrangements. Frequency of therapy: BID SESSIONS 5 DAYS / WEEK TO ADDRESS PREVIOUSLY ESTABLISHED DEFICITS AND GOALS Krystle Cruz OT 12/22/23 * Paresh Prieto, NUMEROLOGIST - 12/22/2023 9:25 AM CDT SPEECH LANGUAGE PATHOLOGY PROGRESS NOTE Patient's Name: Gunjan Gtz Jr. : 1945 Age: 78 y.o. Time In: 8:33 Time Out: 9:00 Patient Active Problem List Diagnosis Primary osteoarthritis of both knees Subchondral insufficiency fracture of condyle of left femur (CMS/HCC) ([facility]) Closed fracture of left tibial plateau with delayed healing Closed fracture of right tibial plateau with delayed healing Closed nondisplaced osteochondral fracture of left patella with delayed healing Closed osteochondral fracture of patella, right, with delayed healing, subsequent encounter Complex tear of medial meniscus of right knee as current injury Complex tear of medial meniscus of left knee as current injury Goiter Breast pain, right Cataract of right eye Diplopia Esotropia Hypertropia of right eye Skin lesion of breast Edema Intermittent claudication ([facility]) Iron deficiency anemia Peripheral vascular disease ([facility]) Pain due to total right knee replacement (CMS/HCC) ([facility]) Hamstring tendinitis of right thigh Quadriceps weakness Idiopathic peripheral neuropathy Abnormality of gait and mobility Hx of total knee replacement, right Neuropathy (CMS/[facility]) 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 Biceps tendinitis of left upper extremity Tear of left glenoid labrum Coffee ground emesis Upper GI bleed Acquired hypothyroidism Acute blood loss anemia Lung nodule Nocturnal cough Hiatal hernia Infrarenal abdominal aortic aneurysm (AAA) without rupture ([facility]) Acute CVA (cerebrovascular accident) ([facility]) Moderate malnutrition (CMS/[facility]) Past Medical History: Diagnosis Date Acute gastric ulcer without hemorrhage or perforation Ulcer, gastric, acute - (Added by TW Conv) Alzheimer's dementia ([facility]) Asthma Back pain Cataract Closed fracture of left tibial plateau with delayed healing Closed fracture of right tibial plateau with delayed healing Closed nondisplaced osteochondral fracture of left patella with delayed healing Closed osteochondral fracture of patella, right, with delayed healing, subsequent encounter Clotting disorder (CMS/HCC) ([facility]) Complex tear of medial meniscus of left knee as current injury Complex tear of medial meniscus of right knee as current injury Cramps of lower extremity Diverticulitis of colon Easy bruisability Fatigue Frequent urination Gastroesophageal reflux disease GERD Hypothyroidism Incontinence of urine Muscle weakness Osteoarthritis Osteoarthritis Peptic ulcer Peptic ulcer disease Seizures ([facility]) 1997 last seizure in 1997 SOB (shortness of breath) on exertion Subchondral insufficiency fracture of condyle of left femur (CMS/HCC) ([facility]) Vertigo Vision changes Visual disturbance hx of double vision, corrective lenses Past Surgical History: Procedure Laterality Date CATARACT EXTRACTION, BILATERAL Bilateral 2018 HERNIA REPAIR 1980 Hiatal Hernia repair KNEE ARTHROSCOPY Bilateral THYROIDECTOMY 12/27/2019 SUBJECTIVE MENTAL STATUS: Patient awake and cooperative, resting in recliner. Reports not sleeping well last night due to cough and not being able to reach his tray table. PAIN: Pre Therapy Pain Level: 0/10 Pain Location: N/A Pain Intervention: N/A Post Therapy Pain Level/Response to Intervention: 0/10 OBJECTIVE PRECAUTIONS: Fall precautions SWALLOWING: Patient continues to tolerate regular consistency diet/thin liquids. COGNITION: Cognitive deficits with short term memory, insight into deficits and thought organization. COMMUNICATION: Mild dysarthric speech. TREATMENT ACTIVITIES: Able to recall steps for functional ambulation with 100% accuracy Provide appropriate solutions to discharge situations with 80% accuracy Spontaneous sentences with 90% intelligibility EDUCATION: PATIENT/FAMILY EDUCATION: Reviewed team conference scheduled for today Response to Education: Understanding verbalized ASSESSMENT Activity Tolerance/Response to S.T.: Tolerated speech therapy session with no complaints Barriers to learning: Cognition, Vision Current status: Patient with decreased insight and safety awareness regarding deficits. Progress toward goals: Patient continues to progress toward previously set goals which remain appropriate at this time. PLAN Multi-Disciplinary Problems (from Speech Therapy) Active Problems Problem: [place]EROLOG[place] [facility]: 12/16/23 Goal Start Date Expected End Date End Date [facility] 1 12/16/23 12/23/23 -- Goal Details: Patient to perform short term memory tasks using compensatory strategies with 80% accuracy. Goal Start Date Expected End Date End Date [facility] 2 12/16/23 12/23/23 -- Goal Details: Patient to perform functional problem solving/reasoning tasks with 80% accuracy. Goal Start Date Expected End Date End Date [facility] 3 12/16/23 12/23/23 -- Goal Details: Patient to attend to left visual field 80% of the time given 2-3 verbal prompts. Goal Start Date Expected End Date End Date [facility] 4 12/16/23 12/23/23 -- Goal Details: Patient's speech to be 90% intelligible during conversational tasks utilizing compensatory strategies. Frequency of Treatment: BID, 5xs weekly Recommendations: Recommend home with 24 hour supervision at discharge. If this is the last note, consider this the discharge summary. * Rosalia Marinelli, OT - 12/21/2023 4:26 PM CDT Occupational Therapy NOTE / SESSION TYPE: OT ROUNDS UPDATE PATIENT'S NAME: Gunjan Gtz Jr. AGE / SEX: 78 y.o. / male ROOM: [place] [id number] : 1945 DATE: 12/21/23 Multi-Disciplinary Problems (from Occupational Therapy) Active Problems Problem: [place] [facility] [place]: 12/16/23 Goal Start Date Expected End Date End Date [facility] [place] 12/16/23 12/23/23 -- Goal Details: Patient will complete basic ADL routine including: bathing in shower, LE dressing, footwear, UB dressing, and grooming tasks with min assist and appropriate compensatory strategies. Goal Start Date Expected End Date End Date [facility] 2 12/16/23 12/23/23 -- Goal Details: Patient will complete simulated car transfer using appropriate device with min assist Goal Start Date Expected End Date End Date [facility] [place] 12/16/23 12/23/23 -- Goal Details: Patient will complete toileting and toilet transfer with min assist and appropriate device. Goal Start Date Expected End Date End Date [facility] 12/16/23 12/23/23 -- Goal Details: Patient will complete functional/meaningful task in standing for 3-5 minutes with minassist for balance one time. Goal Start Date Expected End Date End Date [facility] 12/16/23 12/23/23 -- Goal Details: Patient will complete HEP (LUE SROM/RUE AROM) to improve BUE ROM/strength/endurance and ADL participation with min verbal cues 1 time. Goal Start Date Expected End Date End Date [facility] 12/16/23 12/23/23 -- Goal Details: Patient family/caregiver will attend one OT session and be aware of discharge needs/plans Goal Start Date Expected End Date End Date [facility] 12/16/23 12/23/23 -- Goal Details: Patient will complete medication management for 2-3 prescriptions with 100% accuracy and no additional cues one time. CURRENT FUNCTIONAL STATUS: Mr. Gtz is making good progress in therapy. They demonstrate good participation and good motivation working towards therapy goals. They are currently completing sponge bathing with max assist including standing components. They are mod assist for UE dressing. They are max assist for LE dressing with max assist for standing components. They are completing footwear withmax assist. They are currently completing oral care/grooming tasks in sitting with max assist. Theyare receptive to education and training. They are using compensatory strategies/adaptive equipment including rasheed techniques during ADLs. They are using rasheed aide for functional transfers and need mod assist for standard toilet and mod assist for stand pivot transfers. They need total assist for toileting. All goals have not been addressed due to recent admission to unit. They are expected to continue to progress in therapy. They will benefit from continued skilled occupational therapy to work on adaptive ADL strategies, balance, functional transfers, and UE ROM/strength to increase independence with daily occupations and lower the burden of care on family/caregivers. STRENGTHS: MOTIVATED, GOOD FAMILY / SOCIAL SUPPORT, ABLE TO TOLERATE INPATIENT REHAB, GOOD PREMORBID FUNCTIONAL STATUS, GOOD PREMORBID MEDICAL STATUS, and LIVING IN THE COMMUNITY PREMORBIDLY BARRIERS: DECREASED ACTIVITY TOLERANCE, DECREASED UE ROM / STRENGTH / COORDINATION, DECREASED MOBILITY, DECREASED BALANCE, and DECREASED VISUAL PERCEPTUAL SKILLS OVERCOMING BARRIERS: ADL/IADL training, functional transfer training, caregiver training PRN, UE HEP, endurance training, AE/durable medical equipment training EQUIPMENT RECOMMENDED FOR DISCHARGE: TBD Rosalia Marinelli OT 12/21/23 4:27 PM . * Madie Oneill, DIRECTOR OF RECRUITING - 12/21/2023 2:58 PM CDT Physical Therapy PT PROGRESS NOTE Gunjan Gtz Jr. 78 y.o. 1945 Past Medical History: Diagnosis Date Acute gastric [...] delayed healing, subsequent encounter Clotting disorder (CMS/HCC) (HCC) Complex tear of medial meniscus of left knee as current injury Complex tear of medial meniscus of right knee as current injury Cramps of lower extremity Diverticulitis of colon Easy bruisability Fatigue Frequent urination Gastroesophageal reflux disease GERD Hypothyroidism Incontinence of urine Muscle weakness Osteoarthritis Osteoarthritis Peptic ulcer Peptic ulcer disease Seizures (HCC) 1997 last seizure in 1997 SOB (shortness of breath) on exertion Subchondral insufficiency fracture of condyle of left femur (CMS/HCC) (HCC) Vertigo Vision changes Visual disturbance hx of double vision, corrective lenses Past Surgical History: Procedure Laterality Date CATARACT EXTRACTION, BILATERAL Bilateral 2018 HERNIA REPAIR 1979 Hiatal Hernia repair KNEE ARTHROSCOPY Bilateral THYROIDECTOMY 12/27/2019 Patient Active Problem List Diagnosis Primary osteoarthritis of both knees Subchondral insufficiency fracture of condyle of left femur (CMS/HCC) (HCC) Closed fracture of left tibial plateau with delayed healing Closed fracture of right tibial plateau with delayed healing Closed nondisplaced osteochondral fracture of left patella with delayed healing Closed osteochondral fracture of patella, right, with delayed healing, subsequent encounter Complex tear of medial meniscus of right knee as current injury Complex tear of medial meniscus of left knee as current injury Goiter Breast pain, right Cataract of right eye Diplopia Esotropia Hypertropia of right eye Skin lesion of breast Edema Intermittent claudication ([facility]) Iron deficiency anemia Peripheral vascular disease (HCC) Pain due to total right knee replacement (CMS/HCC) ([facility]) Hamstring tendinitis of right thigh Quadriceps weakness Idiopathic peripheral neuropathy Abnormality of gait and mobility Hx of total knee replacement, right Neuropathy (CMS/HCC) 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 Biceps tendinitis of left upper extremity Tear of left glenoid labrum Coffee ground emesis Upper GI bleed Acquired hypothyroidism Acute blood loss anemia Lung nodule Nocturnal cough Hiatal hernia Infrarenal abdominal aortic aneurysm (AAA) without rupture ([facility]) Acute CVA (cerebrovascular accident) ([facility]) Moderate malnutrition (CMS/HCC) TIME IN: 1435 TIME OUT: 1520 SUBJECTIVE I'm sore. Patient with c/o L shoulder pain post OT session. MENTAL STATUS/ORIENTATION: Alert and oriented x4 PAIN: Pre-therapy pain level: 12/18 Pain location: L shoulder Pain intervention: rest, sling support, light massage Post-therapy pain level/response to intervention: 01/18, shoulder OBJECTIVE PRECAUTIONS: fall APPEARANCE/POSTURE: present in therapy gym, seated in w/c., chair alarm active MOBILITY DOCUMENTATION: Bed Mobility: NT Transfers: sit <> stand to rasheed-cane with MOD assist. Use of mirror therapy for postural cues. Stand pivot transfer from w/c to recliner with MOD assist. Poor safety insight with placement of AD. Balance improving. Ambulation: NT Stairs: NA Wheelchair management & propulsion: 40' forward with rsaheed-technique, SPV. TREATMENT: Patient performs the following seated HEP: #2 ankle weight on R LE AP, LAQ, marching. Patient marches over 2 stacked tall cones, patient taps top of single tall cone x 10 reps each L LE: partial toe taps onto small dome Patient performs seated sheet pulls / hamstring curls with use of KATELIN LE this date. Decreased ROM of L LE. 8' x 3 trials with #7.5 Appearance/Posture at end of treatment session: returned to room, seated in recliner, chair alarm active and call light in reach. EDUCATION: PATIENT/FAMILY EDUCATION: sit <> stand, transfer safety, HEP Response to Education: needs reinforcement ASSESSMENT Activity tolerance/response to PT: GOOD Patient is motivated. Decreased safety insight. Balance deficits. Barriers to learning: unchanged from AM Barriers to discharge: unchanged from AM Patient continues progressing toward previously set goals which remain appropriate at this time. PLAN Patient to be seen bid 5x/week to address previously established deficits and goals. * Paresh Prieto, NUMEROLOGIST - 12/21/2023 2:41 PM CDT SPEECH LANGUAGE PATHOLOGY PROGRESS NOTE Patient's Name: Gunjan Gtz JrMason : 1945 Age: 78 y.o. Time In: 13:06 Time Out: 13:31 Patient Active Problem List Diagnosis Primary osteoarthritis of both knees Subchondral insufficiency fracture of condyle of left femur (CMS/HCC) (HCC) Closed fracture of left tibial plateau with delayed healing Closed fracture of right tibial plateau with delayed healing Closed nondisplaced osteochondral fracture of left patella with delayed healing Closed osteochondral fracture of patella, right, with delayed healing, subsequent encounter Complex tear of medial meniscus of right knee as current injury Complex tear of medial meniscus of left knee as current injury Goiter Breast pain, right Cataract of right eye Diplopia Esotropia Hypertropia of right eye Skin lesion of breast Edema Intermittent claudication (HCC) Iron deficiency anemia Peripheral vascular disease (HCC) Pain due to total right knee replacement (CMS/HCC) ([facility]) Hamstring tendinitis of right thigh Quadriceps weakness Idiopathic peripheral neuropathy Abnormality of gait and mobility Hx of total knee replacement, right Neuropathy (CMS/HCC) 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 Biceps tendinitis of left upper extremity Tear of left glenoid labrum Coffee ground emesis Upper GI bleed Acquired hypothyroidism Acute blood loss anemia Lung nodule Nocturnal cough Hiatal hernia Infrarenal abdominal aortic aneurysm (AAA) without rupture ([facility]) Acute CVA (cerebrovascular accident) ([facility]) Moderate malnutrition (CMS/HCC) Past Medical History: Diagnosis Date Acute gastric ulcer without hemorrhage or perforation Ulcer, gastric, acute - (Added by TW Conv) Alzheimer's dementia ([facility]) Asthma Back pain Cataract Closed fracture of left tibial plateau with delayed healing Closed fracture of right tibial plateau with delayed healing Closed nondisplaced osteochondral fracture of left patella with delayed healing Closed osteochondral fracture of patella, right, with delayed healing, subsequent encounter Clotting disorder (CMS/[facility]) ([facility]) Complex tear of medial meniscus of left knee as current injury Complex tear of medial meniscus of right knee as current injury Cramps of lower extremity Diverticulitis of colon Easy bruisability Fatigue Frequent urination Gastroesophageal reflux disease GERD Hypothyroidism Incontinence of urine Muscle weakness Osteoarthritis Osteoarthritis Peptic ulcer Peptic ulcer disease Seizures ([facility]) 1997 last seizure in 1997 SOB (shortness of breath) on exertion Subchondral insufficiency fracture of condyle of left femur (CMS/HCC) ([facility]) Vertigo Vision changes Visual disturbance hx of double vision, corrective lenses Past Surgical History: Procedure Laterality Date CATARACT EXTRACTION, BILATERAL Bilateral 2018 HERNIA REPAIR 1979 Hiatal Hernia repair KNEE ARTHROSCOPY Bilateral THYROIDECTOMY 12/27/2019 SUBJECTIVE MENTAL STATUS: Patient awake, resting in recliner. Reports feeling sleepy from not sleeping well last night. PAIN: Pre Therapy Pain Level: 0/10 Pain Location: N/A Pain Intervention: N/A Post Therapy Pain Level/Response to Intervention: 0/10 OBJECTIVE PRECAUTIONS: Fall SWALLOWING: Patient continues to tolerate regular consistency diet/thin liquids. Improvement noted with secretion management. Intermittent use of finger/lingual sweep or liquid wash to clear residue. COGNITION: Cognitive deficits in short term memory, insight and thought organization COMMUNICATION: Mild dysarthric speech TREATMENT ACTIVITIES: Oral motor exercises 10xs each Spontaneous sentences with 90% intelligibility Recall daily activities and safety precautions with 90% accuracy EDUCATION: PATIENT/FAMILY EDUCATION: Reviewed team conference scheduled for tomorrow Response to Education: Understanding verbalized ASSESSMENT Activity Tolerance/Response to S.T.: Tolerated speech therapy session with no complaints Barriers to learning: Cognition, Vision Current status: Patient continues to demonstrate left visual field inattention/neglect. Able to elicit spontaneous sentences with 90% intelligibility. Required verbal cues for secretion management. Progress toward goals: Patient continues to progress toward previously set goals which remain appropriate at this time. PLAN Multi-Disciplinary Problems (from Speech Therapy) Active Problems Problem: NUMEROLOGIST [facility] [place]: 12/16/23 Goal Start Date Expected End Date End Date Formerly [facility] 1 12/16/23 12/23/23 -- Goal Details: Patient to perform short term memory tasks using compensatory strategies with 80% accuracy. Goal Start Date Expected End Date End Date Formerly [facility] 2 12/16/23 12/23/23 -- Goal Details: Patient to perform functional problem solving/reasoning tasks with 80% accuracy. Goal Start Date Expected End Date End Date Formerly [facility] 3 12/16/23 12/23/23 -- Goal Details: Patient to attend to left visual field 80% of the time given 2-3 verbal prompts. Goal Start Date Expected End Date End Date Formerly [facility] 4 12/16/23 12/23/23 -- Goal Details: Patient's speech to be 90% intelligible during conversational tasks utilizing compensatory strategies. Frequency of Treatment: BID, 5xs weekly Recommendations: Recommend home with 24 hour supervision at discharge. If this is the last note, consider this the discharge summary. * Rosalia Marinelli OT - 12/21/2023 2:05 PM CDT Occupational Therapy NOTE TYPE: OT TREATMENT ([facility] DEPARTMENT SESSION) PATIENT'S NAME: Gunjan Gtz Jr. AGE / SEX: 78 y.o. / male ROOM: [place] [id number] : 1945 DATE: 12/21/23 TIME IN: 1340 TIME OUT: 1420 Patient Active Problem List Diagnosis Primary osteoarthritis of both knees Subchondral insufficiency fracture of condyle of left femur (CMS/HCC) (HCC) Closed fracture of left tibial plateau with delayed healing Closed fracture of right tibial plateau with delayed healing Closed nondisplaced osteochondral fracture of left patella with delayed healing Closed osteochondral fracture of patella, right, with delayed healing, subsequent encounter Complex tear of medial meniscus of right knee as current injury Complex tear of medial meniscus of left knee as current injury Goiter Breast pain, right Cataract of right eye Diplopia Esotropia Hypertropia of right eye Skin lesion of breast Edema Intermittent claudication ([facility]) Iron deficiency anemia Peripheral vascular disease ([facility]) Pain due to total right knee replacement (CMS/HCC) ([facility]) Hamstring tendinitis of right thigh Quadriceps weakness Idiopathic peripheral neuropathy Abnormality of gait and mobility Hx of total knee replacement, right Neuropathy (CMS/HCC) 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 Biceps tendinitis of left upper extremity Tear of left glenoid labrum Coffee ground emesis Upper GI bleed Acquired hypothyroidism Acute blood loss anemia Lung nodule Nocturnal cough Hiatal hernia Infrarenal abdominal aortic aneurysm (AAA) without rupture ([facility]) Acute CVA (cerebrovascular accident) ([facility]) Moderate malnutrition (CMS/[facility]) Past Medical History: Diagnosis Date Acute gastric ulcer without hemorrhage or perforation Ulcer, gastric, acute - (Added by TW Conv) Alzheimer's dementia ([facility]) Asthma Back pain Cataract Closed fracture of left tibial plateau with delayed healing Closed fracture of right tibial plateau with delayed healing Closed nondisplaced osteochondral fracture of left patella with delayed healing Closed osteochondral fracture of patella, right, with delayed healing, subsequent encounter Clotting disorder (CMS/HCC) ([facility]) Complex tear of medial meniscus of left knee as current injury Complex tear of medial meniscus of right knee as current injury Cramps of lower extremity Diverticulitis of colon Easy bruisability Fatigue Frequent urination Gastroesophageal reflux disease GERD Hypothyroidism Incontinence of urine Muscle weakness Osteoarthritis Osteoarthritis Peptic ulcer Peptic ulcer disease Seizures ([facility]) 1997 last seizure in 1997 SOB (shortness of breath) on exertion Subchondral insufficiency fracture of condyle of left femur (CMS/HCC) ([facility]) Vertigo Vision changes Visual disturbance hx of double vision, corrective lenses Past Surgical History: Procedure Laterality Date CATARACT EXTRACTION, BILATERAL Bilateral 2018 HERNIA REPAIR 1980 Hiatal Hernia repair KNEE ARTHROSCOPY Bilateral THYROIDECTOMY 12/27/2019 PRECAUTIONS (INCLUDING WEIGHT-BEARING): Fall risk and Bed / chair alarm SUBJECTIVE: Patient agreeable THERAPY PAIN: PRE-THERAPY PAIN LEVEL: 0 / 10 PAIN LOCATION: No pain - Location N/A PAIN INTERVENTION(S): Repositioned POST-THERAPY PAIN LEVEL: 3 / 10 (c/o pain in LUE after ROM) PAIN SCALE USED: 0-10 SCALE OBJECTIVE: APPEARANCE: PRESENTATION UPON OT ARRIVAL: PATIENT Sitting in bedside recliner PRESENTATION UPON OT DEPARTURE: PATIENT Sitting in manual wheelchair with staff assistance BED / CHAIR ALARM IN PLACE AND ACTIVATED UPON OT DEPARTURE: Yes CALL LIGHT WITHIN ARMS REACH OF PATIENT AT END OF SESSION: No - due to patient taken to physical therapy gym COMPLETED PATIENT HANDOFF AND NOTIFIED Physical Therapist / Physical Therapist Human Resources Clerk, NAME: Marcia, OF PATIENT'S LOCATION AND FUNCTIONAL STATUS UPON COMPLETION OF SESSION COGNITIVE / PERCEPTUAL: Alert and oriented to conversation UE THERAPEUTIC EXERCISES: EXERCISE TYPE: L UE SROM EXERCISE(S) COMPLETED WITH NUMBER OF REPETITIONS: SHOULDER FLEXION 10 , ELBOW FLEXION 10, ELBOW EXTENSION 10 , WRIST FLEXION 10, and WRIST EXTENSION 10 NUMBER OF SETS: 1 ASSIST LEVEL: physical assistance: partial/moderate assistance LOCATION OF COMPLETION: seated in w/c TOLERANCE: Patient with fair tolerance. C/o slight pain in LUE after completing SROM. Required assist for correct placement of R hand when completing and assist to stabilize elbow during shoulder flexion UE THERAPEUTIC EXERCISES: EXERCISE TYPE: L UE SCAPULAR MOBILIZATION EXERCISE(S) COMPLETED WITH NUMBER OF REPETITIONS: SCAPULAR ELEVATION 10 and SCAPULAR DEPRESSION 10 NUMBER OF SETS: 1 ASSIST LEVEL: physical assistance: partial/moderate assistance LOCATION OF COMPLETION: seated in w/c TOLERANCE: Good tolerance with no c/o pain or fatigue ADDITIONAL ACTIVITIES: Towel slides (OVERALL ASSIST LEVEL): Min assist LOCATION: seated in w/c ACTIVITY DESCRIPTION: Patient completed towel slides to allow AAROM on L shoulder. Patient completed 10 reps of shoulder flex/ext x2 sets. Patient requires min assist to stabilize L elbow and for correct hand placement of towel. Patient reports feeling stretch in stomach and back. Patient demonstrates good sitting balance with ability to lean forward and backward with no assist. MOBILITY: TRANSFERS: Mod assist for stand pivot transfer from recliner to w/c using rasheed aide CAREGIVER PRESENT (YES / NO): No EDUCATION & TRAINING PROVIDED: Role of OT, OT plan of care, Functional transfer training, Safety education, and UE home exercise program ASSESSMENT: ACTIVITY TOLERANCE / RESPONSE TO OT: GOOD PARTICIPATION, GOOD MOTIVATION, and RECEPTIVE TO EDUCATION / TRAINING PROGRESS TOWARDS GOALS: PLEASE REFER TO CARE PLAN FROM THIS DATE FOR PROGRESS TOWARDS INDIVIDUAL GOALS PLAN: PLEASE REFER TO MOST RECENT INPATIENT REHABILITATION TEAM CONFERENCE NOTE FOR DISCHARGE PLAN, INCLUDING LOCATION, RECOMMENDED LEVEL OF SUPERVISION AND ARRANGEMENTS. FREQUENCY OF THERAPY: BID SESSIONS 5 DAYS / WEEK TO ADDRESS PREVIOUSLY ESTABLISHED DEFICITS AND GOALS Rosalia Marinelli OT 12/21/23 * Kyra Larose - 12/21/2023 12:51 PM CDT NUTRITION ASSESSMENT Nutrition Status: Patient meets criteria for moderate acute malnutrition, reference ASPEN guidelines. Present on Admission: Yes REASON FOR ASSESSMENT: Follow Up Encounter Date: 12/21/23 12:55 PM Admission Date: 12/15/2023 LOS: 6 days HPI: Patient is a 78 y.o. male with history of GERD, PVD presented to [facility] on 12/07 with sudden left sided weakness. CTH negative. CTA no LVO. He was given tPA. Neurology consulted. 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 Noted to have coffee ground emesis, lovenoxand aspirin held and patient started on IV protonix. No further episodes and aspirin resumed. FOBT negative. Therapy recommending acute rehab prior to return home. 12/08: Ordering Ensure High PRO bid for additional calorie/protein intake. 12/12: Modify ONS Ensure high protein to vanilla flavor only. PO intakes averaging 64%. Malnutrition assessment complete. 12/15: Modify diet to regular to promote PO intakes. Continue Ensure HP vanilla bid. PO intakes avg 40%. Malnutrition re-assessment completed. 12/20: Continue regular diet and Ensure HP vanilla bid. PO intakes avg 57%. Objective Past Medical History: Diagnosis Date Acute gastric [...] delayed healing, subsequent encounter Clotting disorder (CMS/HCC) (HCC) Complex tear of medial meniscus of left [...] Hernia repair KNEE ARTHROSCOPY Bilateral THYROIDECTOMY 12/27/2019 Social History Tobacco Use Smoking status: Former Current packs/day: 0.00 Types: Cigarettes Start date: 1965 Quit date: 1966 Years since quittin.2 Smokeless tobacco: Never Substance and Sexual Activity Drug use: Yes Types: Alcohol Sexual activity: Defer Alcohol Use: Not At Risk (12/16/2023) AUDIT-C Frequency of Alcohol Consumption: Monthly or less Average Number of Drinks: 1 or 2 Frequency of Binge Drinking: Less than monthly MEDICATION/LAB REVIEW: Scheduled Meds: aspirin, 81 mg, oral, Daily donepeziL, 10 mg, oral, Nightly enoxaparin, 40 mg, subcutaneous, Daily-2100 fluticasone furoate-vilanteroL, 1 puff, inhalation, Daily (RT) gabapentin, 300 mg, oral, TID guaiFENesin ER, 600 mg, oral, BID levothyroxine, 150 mcg, oral, Daily - [address], 40 mg, oral, BID polyethylene glycol, 17 g, oral, Daily rosuvastatin, 40 mg, oral, Daily tamsulosin, 0.4 mg, oral, Nightly Continuous Infusions: PRN Meds: acetaminophen albuterol HFA calcium carbonate ofloxacin ondansetron oxyCODONE ramelteon senna-docusate simethicone tiZANidine Recent Labs Lab Units 12/20/23 0404 SODIUM mmol/L 139 POTASSIUM PLASMA mmol/L 4.6 CHLORIDE mmol/L 104 CO2 mmol/L 25 BUN SERUM mg/dL 19 CREATININE mg/dL 1.25 [id number] mL/min/1.73 m2 59 CALCIUM mg/dL 9.0 ALBUMIN g/dL 3.4* Recent Labs Lab Units 12/20/23 0404 12/16/23 0411 GLUCOSE mg/dL 112 107 ALT Date Value Ref Range Status 12/20/2023 16 7 - 55 Units/L Final AST Date Value Ref Range Status 12/20/2023 24 10 - 50 Units/L Final Alk phos Date Value Ref Range Status 12/20/2023 117 40 - 130 Units/L Final Lab Results Component Value Date HGBA1C 5.6 12/07/2023 HDL 55 12/08/2023 LDLCALC 110 12/08/2023 CHOL 182 12/08/2023 TRIG 86 12/08/2023 NURSING ASSESSMENT: Last BM Date: 12/21/23 Bowel Sounds (All Quadrants): Hypoactive Hood Scale Score: 16 Skin Integrity: Intact Vital Signs BP: 132/79 Temp: 36.6 ??C (97.9 ??F) Pulse: 80 Resp: 18 SpO2: 96 % Intake/Output Summary (Last 24 hours) at 12/21/2023 1255 Last data filed at 12/21/2023 1225 Gross per 24 hour Intake 705 ml Output 350 ml Net 355 ml Adult Malnutrition Scoring Tool (MST) What diet do you follow at home?: regular Have You Recently Lost Weight Without Trying?: No Have you been eating poorly because of a decreased appetite?: Yes Malnutrition Screening Tool (MST) Score: 1 Hunger Screen - Admission Within the past 12 months the food we bought just didn't last and we didn't have money to get more.: Never true Within the past 12 months we worried whether our food would run out before we got money to buy more.: Never true Within the past 12 months, you worried that your food would run out before you got the money to buymore.: Never true Within the past 12 months, the food you bought just didn't last and you didn't have money to get more.: Never true Anthropometrics Weight: 95.4 kg (210 lb 5.1 oz) Admission Weight : 102.1 kg Weight Change: -6.65 kg (-14.68 lbs) IBW/kg (Calculated) : 75.3 kg Height: 177.8 cm (5' 10 ) Weight in (lb) to have BMI = 25: 173.9 BMI (Calculated): 30.2 BMI Classification: BMI 30.0 - 34.9 Obese Class I Wt Readings from Last 10 Encounters: 12/19/23 95.4 kg (210 lb 5.1 oz) 03/05/24 103.4 kg (228 lb) 12/08/23 103.4 kg (227 lb 15.3 oz) 11/12/23 99.8 kg (220 lb) 11/03/23 99.8 kg (220 lb) 10/10/23 100.9 kg (222 lb 8 oz) 05/18/23 104.3 kg (230 lb) 05/04/23 104.3 kg (230 lb) 03/23/23 105.2 kg (232 lb) 12/03/22 105 kg (231 lb 7.7 oz) ESTIMATED NEEDS: Total Kcal/kg Estimated Needs : 2194.2 Kcal/k. Type of Weight Used for Estimated Kcals: Current Total Protein Estimated Needs (gm): 114.48 Protein Needs Based on g/k.2 Type of Weight Used forEstimated Protein : Current Total Fluid Estimated Needs: 2194.2 Fluid Needs Based on : 1 ml/kcal Type of Weight Used for Estimated Fluid Needs: Current Dietary Orders (From admission, onward) Start Ordered 12/16/23 1700 Oral Nutrition Supplements (CH) Select Supplement: Ensure High Protein - Vanilla WithBreakfast and Dinner Comments: Vanilla ONLY Question: (CH) Select Supplement: Answer: Ensure High Protein - Vanilla 12/16/23 0843 12/16/23 0844 Adult Diet Regular Diet effective now Question: (CH) Diet type Answer: Regular 12/16/23 0843 Allergies: Reviewed. IMPRESSION: Pt sitting in chair. Reports of so-so appetite. PO intakes avg 57% x 14 meals. Reports of continued dislike for hospital food but family has been brining in food and Pt able to find some options helikes. Limited documentation of Ensure intake. Reports drinking 100% of Ensure HP this AM. Updated wt hx reviewed. Noted 15 lb wt loss in 6 days; however unsure of accuracy as wt method unstated. Will continue to trend. Pt continues to meet criteria for moderate protein calorie malnutrition. Pt denies N/V/C/D. Reports difficulty with some chewing/pocketing food. NUMEROLOGIST following and working with Pt on this. Labs reviewed. Meds reviewed. RLE/LLE no pitting. GI WDL Last BM 12/20. Skin intact. Weights/Vitals Height Weight (LB) Weight (KG) Weight Method 05/18/2023 5' 10 230 lb 104.327 kg 10/10/2023 5' 11 222 lb 8 oz 100.925 kg Standing scale 11/03/2023 5' 11 220 lb 99.791 kg 11/12/2023 5' 11 220 lb 99.791 kg 12/07/2023 5' 10.984 230 lb 104.327 kg EMS stretcher scale 228 lb 103.42 kg Bed scale 12/08/2023 5' 10.984 227 lb 15.3 oz 103.4 kg 5' 10.984 12/09/2023 233 lb 12.8 oz 106.051 kg Bed scale 12/14/2023 5' 11 228 lb 103.42 kg 12/15/2023 5' 10 225 lb 102.059 kg Bed scale 12/19/2023 210 lb 5.1 oz 95.4 kg ASPEN MALNUTRITION ASSESSMENT: Date of completion: 12/16/23 ASPEN/AND Malnutrition Screening: Acute illness or injury mild/moderate Energy Intake: < 75% energy intake compared to estimated energy needs > 7 days Weight Loss: 1%-2% in 1 week Body Fat: Clinical criteria not met Muscle Mass: Clinical criteria not met Fluid Accumulation: Clinical criteria not met Patient Meets Criteria for Moderate Malnutrition: Yes NUTRITION FOCUSED PHYSICAL EXAM: Completed. 12/13/23 Subcutaneous Fat Loss Orbital Region - Surrounding the Eye: Slightly bulged fat pads Cheek Region - Buccal Fat: Full, round filled-out cheeks Upper Arm Region - Triceps/Biceps: Some depth pinch but not ample Muscle Loss Sikhism Region - Temporalis Muscle: Slight depression Clavicle Bone Region - Pectoralis Major, Deltoid, Trapezius Muscles: Not visible in male, visible but not prominent in female Clavicle and Acromion Bone Region - Deltoid Muscle: Rounded, curves at arm/shoulder/neck Scapular Bone Region - Trapezius, Supraspinus, Infraspinus Muscles: Bones not prominent NUTRITION DIAGNOSIS: Nutrition Diagnosis 1: Protein-Calorie Malnutrition - Moderate Related to: Acute illness/injury Evidenced by: Inadequate energy intake, Weight loss Nutrition Diagnosis 2: Increased nutrient needs (protein) Related to: Increased activity level Evidenced by: Comprehensive rehabilitation therapy INTERVENTION(S): Summary: Follow up per policy, Assess for nutrition changes, Encouragement Continue regular diet and Ensure HP-vanilla bid. GOAL(S): Oral intake to meet 75% estimated nutritional needs by next assessment MONITORING/EVALUATION: Appetite, Weight changes, PO intake, Plan of care, Food preferences, Stool patterns, Swallow function, Discharge plans Diet Instructions Recommend to eat a generally healthy diet with foods that include a variety of fruits, vegetables, whole-grain breads, low-fat dairy products, beans, lean meats, and fish. Limit fast food, sugary drinks, excess salt, and desserts. Limit sugary drinks like lemonade, regular soda, Gatorade, and sweettea and drink water throughout the day. Call [phone] to speak with a dietitian about any diet related concerns. Additional resources are available online from the Academy of [employer] and [employer]etics at www.eatright.org Nutrition Follow-Up : 12/28/23 Kyra Larose MS, RD, LD * Becky Montana MD - 12/21/2023 12:11 PM CDT INPATIENT REHABILITATION DAILY PROGRESS NOTE CHIEF COMPLAINT: right posterior limb internal capsule infarct SUBJECTIVE: States he has a cold and cough now. Asking for his home medicine although he does not remember the name - he will reach out to to bring in. OBJECTIVE: VITALS: Vitals: 12/20/23 0759 12/20/23 1852 12/21/23 0653 12/21/23 0721 BP: 118/68 132/79 BP Location: Left arm Patient Position: Sitting Sitting Pulse: 82 80 Resp: 18 18 Temp: 36.6 ??C (97.9 ??F) 36.6 ??C (97.9 ??F) TempSrc: Oral Oral SpO2: 94% 95% 94% 96% Weight: Height: PHYSICAL EXAM: General: no acute distress, in gym HEENT: normocephalic, trachea midline Heart: rrr Lungs: ctab GI: soft, nontender Neuro: alert, awake LABS/RADIOLOGY/DIAGNOSTIC REVIEW Recent Labs Lab Units 12/20/23 0404 WBC K/cumm 7.9 HEMOGLOBIN g/dL 13.7 HEMATOCRIT % 42.0 PLATELETS K/cumm 253 Recent Labs Lab Units 12/20/23 0404 SODIUM mmol/L 139 POTASSIUM PLASMA mmol/L 4.6 CHLORIDE mmol/L 104 CO2 mmol/L 25 ANIONGAP mmol/L 10 GLUCOSE mg/dL 112 BUN SERUM mg/dL 19 CREATININE mg/dL 1.25 CALCIUM mg/dL 9.0 ALBUMIN g/dL 3.4* ALK PHOS Units/L 117 ALT Units/L 16 AST Units/L 24 BILIRUBIN TOTAL mg/dL 0.4 Recent Labs Lab Units 12/20/23 0404 12/16/23 0411 GLUCOSE mg/dL 112 107 OT Functional Mobility: 12/15 Functional transfers: MAX-TOTAL OT Self Care: 12/15 Bathing: TOTAL Grooming: MAX UB dress:MAX LB dress: TOTAL Footwear: TOTAL Toileting:TOTAL PT Functional Mobility: 12/21/23: supine <> sit with MIN assist for L LE. Rolling toward L side with SBA. Sit <> stand to rasheed-aide with MOD to MIN assist. 12' gait with rasheed-aide and MOD assist. Stand pivot with rasheed-aide and MAX assist. W/C mobility 60'-75' with R LE and UE with SPV. No results found. MEDICATIONS: Current Facility-Administered Medications: acetaminophen (TYLENOL) tablet 650 mg, 650 mg, oral, Q6H PRN, Becky Montana MD, 650 mg at 12/20/23 180 albuterol HFA (PROVENTIL HFA,VENTOLIN HFA,PROAIR HFA) 90 mcg/actuation inhaler 2 puff, 2 puff, inhalation, Q4H PRN (RT), Becky Montana MD aspirin chewable tablet 81 mg, 81 mg, oral, Daily, Becky Montana MD, 81 mg at 12/21/23 0858 calcium carbonate (TUMS) chewable tablet 1,000 mg, 400 mg of elemental calcium, oral, TID PRN, Becky Montana MD donepeziL (ARICEPT) tablet 10 mg, 10 mg, oral, Nightly, Becky Montana MD, 10 mg at 12/20/232048 enoxaparin (LOVENOX) syringe 40 mg, 40 mg, subcutaneous, Daily-2100, Becky Rudd MD, 40 mg at 12/20/232048 fluticasone furoate-vilanteroL (BREO ELLIPTA) 100-25 mcg/dose inhaler 1 puff, 1 puff, inhalation, Daily (RT), Becky Montana MD, 1 puff at 12/21/23 0721 gabapentin (NEURONTIN) capsule 300 mg, 300 mg, oral, TID, Becky Montana MD, 300 mg at 12/21/23 0858 guaiFENesin ER (MUCINEX) extended release tablet 600 mg, 600 mg, oral, BID, Jl Montana MD levothyroxine (SYNTHROID) tablet 150 mcg, 150 mcg, oral, Daily - 0600, Becky Rudd MD, 150 mcg at 12/21/23 06 ofloxacin (OCUFLOX) 0.3 % ophthalmic solution 1 drop, 1 drop, each eye, Daily PRN, Becky Montana MD ondansetron (ZOFRAN) tablet 4 mg, 4 mg, oral, TID PRN, Becky Montana MD oxyCODONE (ROXICODONE) tablet 5 mg, 5 mg, oral, Q4H PRN, Becky Montana MD, 5 mg at 12/20/232047 pantoprazole DR (PROTONIX) extended release tablet 40 mg, 40 mg, oral, BID, Jl Montana MD, 40 mg at 12/21/23857 polyethylene glycol (MIRALAX) packet 17 g, 17 g, oral, Daily, Becky Montana MD, 17 gat 12/20/23 08 ramelteon (ROZEREM) tablet 8 mg, 8 mg, oral, Nightly PRN, Becky Montana MD, 8 mg at 12/20/232047 rosuvastatin (CRESTOR) tablet 40 mg, 40 mg, oral, Daily, Becky Montana MD, 40 mg at 12/21/23 08 senna-docusate (PERICOLACE) 8.6-50 mg per tablet 1 tablet, 1 tablet, oral, BID PRN, Becky Montana MD, 1 tablet at 12/19/23 0837 simethicone (MYLICON) chewable tablet 80 mg, 80 mg, oral, TID PRN, Becky Rudd MD tamsulosin (FLOMAX) extended release capsule 0.4 mg, 0.4 mg, oral, Nightly, Jl Montana MD, 0.4 mg at 12/20/232048 tiZANidine (ZANAFLEX) tablet 2 mg, 2 mg, oral, TID PRN, Becky Montana MD, 2 mg at 12/21/2358 ASSESSMENT/PLAN: MEDICAL PLAN OF CARE: 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 Impaired mobility, ADLs, transfers, gait, balance, strength, endurance, speech, cognition, swallow PT OT eval NUMEROLOGIST eval Continue aspirin 81mg, rosuvastatin 40mg Ophtho outpatient HTN: no current medications, monitor bp 12/15: controlled 12/16: controlled 12/19: controlled 12/20: controlled HLD: continue rosuvastatin 40mg AAA: no current medications Hypothyroidism: continue levothyroxine 150mcg GERD: continue pantoprazole 40mg bid Alzheimer: continue donepezil 10mg qhs Depression: no current medications Asthma: continue breo ellipta 100-25 daily BPH: continue flomax 0.4mg qhs Neuropathy: continue gabapentin 300mg tid Pain: Start Tylenol 650mg q6h prn, oxycodone 5mg q4h prn Bowels: Start miralax daily, pericolace bid prn, simethicone prn 12/16: dulcolax 10mg x1 Nausea: Start Zofran prn, Tums prn Congestion: start mucinex 600mg bid Diet: Reg/Thin HH 2G Na DVT ppx: restart lovenox Precautions: Fall Weightbearing status: full Code: Full Code Care discussed with Nursing, NUMEROLOGIST Reviewed vital signs, intake, bowel, and bladder - as above REHAB PLAN OF CARE: Patient's expected intensity and duration of participation in the interdisciplinary rehabilitation program and disciplines that comprise this team: Therapies required to achieve goals:The patient will benefit from integrated coordination of care from the following interdisciplinary services: Medical Supervision, 24 hours Rehabilitation Nursing, Physical Therapy, Occupational Therapy, Case Management; Social Work; Therapeutic Recreation; SpeechTherapy; Flatwork Feeder Frequency and duration of therapies expect to be:Expected intensity and frequency of participation in the interdisciplinary rehab program is: 3 hours per day except Wednesday. Expected intensity and frequency of Physical Therapy (PT): 1.5 hours per day over 5-7 days for the duration of length of stay Expected intensity and frequency of Occupational Therapy (OT): 1.5 hours per day over 5-7 days per week for the duration of length of stay Expected intensity and frequency of Speech Therapy (NUMEROLOGIST): 1 hour per day per day over 5-7 days per week for the duration of length of stay FUNCTIONAL CHANGE: DISCHARGE PLANNING: Expected Discharge Date: TBD Equipment: TBD Family Training: SW to set up Education: Follow up Appointments: PCP 1-2 weeks Becky Montana MD Physical Medicine and Rehabilitation I can be reached from 7am-7pm through [email or web address] chat. Hospitalist forest fire prevention manager from 7pm-7am * Madie Oneill PTA - 12/21/2023 11:04 AM CDT Physical Therapy PT PROGRESS NOTE Gunjan Gtz Jr. 78 y.o. 1945 Past Medical History: Diagnosis Date Acute gastric [...] delayed healing, subsequent encounter Clotting disorder (CMS/HCC) (HCC) Complex tear of medial meniscus of left knee as current injury Complex tear of medial meniscus of right knee as current injury Cramps of lower extremity Diverticulitis of colon Easy bruisability Fatigue Frequent urination Gastroesophageal reflux disease GERD Hypothyroidism Incontinence of urine Muscle weakness Osteoarthritis Osteoarthritis Peptic ulcer Peptic ulcer disease Seizures (HCC) 1997 last seizure in 1997 SOB (shortness of breath) on exertion Subchondral insufficiency fracture of condyle of left femur (CMS/HCC) (HCC) Vertigo Vision changes Visual disturbance hx of double vision, corrective lenses Past Surgical History: Procedure Laterality Date CATARACT EXTRACTION, BILATERAL Bilateral 2018 HERNIA REPAIR 1979 Hiatal Hernia repair KNEE ARTHROSCOPY Bilateral THYROIDECTOMY 12/27/2019 Patient Active Problem List Diagnosis Primary osteoarthritis of both knees Subchondral insufficiency fracture of condyle of left femur (CMS/HCC) (HCC) Closed fracture of left tibial plateau with delayed healing Closed fracture of right tibial plateau with delayed healing Closed nondisplaced osteochondral fracture of left patella with delayed healing Closed osteochondral fracture of patella, right, with delayed healing, subsequent encounter Complex tear of medial meniscus of right knee as current injury Complex tear of medial meniscus of left knee as current injury Goiter Breast pain, right Cataract of right eye Diplopia Esotropia Hypertropia of right eye Skin lesion of breast Edema Intermittent claudication (HCC) Iron deficiency anemia Peripheral vascular disease (HCC) Pain due to total right knee replacement (CMS/HCC) ([facility]) Hamstring tendinitis of right thigh Quadriceps weakness Idiopathic peripheral neuropathy Abnormality of gait and mobility Hx of total knee replacement, right Neuropathy (CMS/HCC) 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 Biceps tendinitis of left upper extremity Tear of left glenoid labrum Coffee ground emesis Upper GI bleed Acquired hypothyroidism Acute blood loss anemia Lung nodule Nocturnal cough Hiatal hernia Infrarenal abdominal aortic aneurysm (AAA) without rupture ([facility]) Acute CVA (cerebrovascular accident) ([facility]) Moderate malnutrition (CMS/HCC) TIME IN: 1103 TIME OUT: 1148 SUBJECTIVE Last night was bad. Patient reports not sleeping much overnight. MENTAL STATUS/ORIENTATION: Alert and oriented x4 PAIN: Pre-therapy pain level: none Pain location: na Pain intervention: mobility performed Post-therapy pain level/response to intervention: 10 in R hip; lessens with rest. OBJECTIVE PRECAUTIONS: fall APPEARANCE/POSTURE: present in therapy gym, seated in w/c, chair alarm active MOBILITY DOCUMENTATION: Bed Mobility: NT Transfers: sit <> stand from w/c to rasheed-aide with MOD assist progressing to MIN assist with v/c regarding sequencing and body mechanics. Some posterior weight shift. Ambulation: 12' with rasheed-aide w/c follow and MOD assist. Forward fold posture when trying to advance R LE. Improves with v/c. Weak L LE, decreased control L LE. Improving with L LE advancement and foot placement. Stairs: NT Wheelchair management & propulsion: 70' with R UE and LE. SPV + v/c regarding avoiding obstacles on the L side. TREATMENT: W/C mobility, gait, sit <> stand transfers x 5. Stand pivot from w/c into recliner with rasheed-aide and MAX assist for decreased safety awareness. Appearance/Posture at end of treatment session: seated in recliner, call light in reach, chair alarm active, lunch tray set up for patient. EDUCATION: PATIENT/FAMILY EDUCATION: transfer training. Sequencing, safety. Response to Education: needs reinforcement ASSESSMENT Activity tolerance/response to PT: GOOD Patient with consistent performance between yesterday PM session and this AM. Barriers to learning: Physical Barriers to discharge: Pain, Limited family support, Decreased endurance, Decreased proprioception,Upper extremity weakness, Lower extremity weakness, and Stairs at home Patient continues progressing toward previously set goals which remain appropriate at this time. PLAN Patient to be seen bid 5x/week to address previously established deficits and goals. * Rosalia Marinelli, OT - 12/21/2023 10:10 AM CDT Occupational Therapy NOTE TYPE: OT TREATMENT ([facility] BEDSIDE SESSION) Patient's Name: Gunjan Gtz Jr. Age / Sex: 78 y.o. / male Room: [place] [address] : 1945 Date: 12/21/23 Time In: 1010 Time Out: 1100 Patient Active Problem List Diagnosis Primary osteoarthritis of both knees Subchondral insufficiency fracture of condyle of left femur (CMS/HCC) (HCC) Closed fracture of left tibial plateau with delayed healing Closed fracture of right tibial plateau with delayed healing Closed nondisplaced osteochondral fracture of left patella with delayed healing Closed osteochondral fracture of patella, right, with delayed healing, subsequent encounter Complex tear of medial meniscus of right knee as current injury Complex tear of medial meniscus of left knee as current injury Goiter Breast pain, right Cataract of right eye Diplopia Esotropia Hypertropia of right eye Skin lesion of breast Edema Intermittent claudication (HCC) Iron deficiency anemia Peripheral vascular disease ([facility]) Pain due to total right knee replacement (CMS/HCC) ([facility]) Hamstring tendinitis of right thigh Quadriceps weakness Idiopathic peripheral neuropathy Abnormality of gait and mobility Hx of total knee replacement, right Neuropathy (CMS/HCC) 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 Biceps tendinitis of left upper extremity Tear of left glenoid labrum Coffee ground emesis Upper GI bleed Acquired hypothyroidism Acute blood loss anemia Lung nodule Nocturnal cough Hiatal hernia Infrarenal abdominal aortic aneurysm (AAA) without rupture (HCC) Acute CVA (cerebrovascular accident) ([facility]) Moderate malnutrition (CMS/HCC) Past Medical History: Diagnosis Date Acute gastric ulcer without hemorrhage or perforation Ulcer, gastric, acute - (Added by TW Conv) Alzheimer's dementia ([facility]) Asthma Back pain Cataract Closed fracture of left tibial plateau with delayed healing Closed fracture of right tibial plateau with delayed healing Closed nondisplaced osteochondral fracture of left patella with delayed healing Closed osteochondral fracture of patella, right, with delayed healing, subsequent encounter Clotting disorder (CMS/HCC) ([facility]) Complex tear of medial meniscus of left knee as current injury Complex tear of medial meniscus of right knee as current injury Cramps of lower extremity Diverticulitis of colon Easy bruisability Fatigue Frequent urination Gastroesophageal reflux disease GERD Hypothyroidism Incontinence of urine Muscle weakness Osteoarthritis Osteoarthritis Peptic ulcer Peptic ulcer disease Seizures ([facility]) 1997 last seizure in 1997 SOB (shortness of breath) on exertion Subchondral insufficiency fracture of condyle of left femur (CMS/HCC) ([facility]) Vertigo Vision changes Visual disturbance hx of double vision, corrective lenses Past Surgical History: Procedure Laterality Date CATARACT EXTRACTION, BILATERAL Bilateral 2018 HERNIA REPAIR 1979 Hiatal Hernia repair KNEE ARTHROSCOPY Bilateral THYROIDECTOMY 12/27/2019 Precautions (Including Weight-Bearing): Fall risk and Bed / chair alarm SUBJECTIVE: Patient agreeable Therapy Pain: Pre-therapy pain level: 0 / 10 Pain location: No pain - Location N/A Pain intervention(s): No pain - Intervention N/A Post-therapy pain level: 0 / 10 Pain scale used: 0-10 SCALE OBJECTIVE: APPEARANCE: Presentation upon OT arrival: Patient Sitting in bedside recliner Presentation upon OT departure: PATIENT Sitting in manual wheelchair with staff assistance Bed / chair alarm in place and activated upon OT departure: Yes Call light within arms reach of patient at end of session: No - due to patient taken to physical therapy gym Completed patient handoff and notified Physical Therapist / Physical Therapist Human Resources Clerk, name: Marcia, of patient's location and functional status upon completion of session. COGNITIVE / PERCEPTUAL: Alert and oriented to conversation SELF CARE: Shower / Bathe Self Type of bathing: SPONGEBATHING Location of shower / bathe self: Sitting in manual wheelchair and Standing at grab bar Tasks completed: ALL COMPONENTS Components that required assistance (if applicable): MAX ASSIST RIGHT ARM, MIN ASSIST LEFT ARM, MAXASSIST BUTTOCKS, MAX ASSIST LEFT LOWER LEG, INCLUDING FOOT, and MAX ASSIST RIGHT LOWER LEG, INCLUDING FOOT Overall assist level: SUBSTANTIAL / MAXIMAL ASSISTANCE: MORE THAN HALF (50% - 99%) Adaptive equipment (if applicable): no assistive device Additional documentation: MAX assist overall. Patient required mod assist for standing balance at grab bar and max assist to wash buttock. Max assist to wash RUE. Assist to hold up LUE when washing Oral Hygiene Location of oral hygiene: Sitting in manual wheelchair Overall assist level: SUPERVISION ASSISTANCE / VERBAL CUES Additional documentation: N/A Other Grooming Tasks Location of other grooming tasks: Sitting in manual wheelchair Tasks completed: APPLYING DEODORANT Overall assist level: SUBSTANTIAL / MAXIMAL ASSISTANCE: MORE THAN HALF (50% - 99%) Additional documentation: Max assist to apply spray deodorant UE Dressing Location of UE dressing: Sitting in manual wheelchair Tasks completed: Pullover shirt Overall assist level: PARTIAL / MODERATE ASSISTANCE: LESS THAN HALF (1% - 49%) Additional documentation: Min assist to don short sleeve shirt with mod verbal cueing for rasheed technique. Mod assist to don long sleeve shirt LE Dressing (Underwear / Pants) Location of LE dressing (Underwear / Pants): Sitting in manual wheelchair and Standing at grab bar Tasks completed: Elastic waist pants and Incontinence briefs as underwear Overall assist level: SUBSTANTIAL / MAXIMAL ASSISTANCE: MORE THAN HALF (50% - 99%) Additional documentation: MAX assist overall. Mod assist to thread LLE. Patient able to achieve hipflexion this date to assist with threading LLE. Min assist to thread RLE. Max assist for hip components in standing with min assist for standing balance at grab bar Putting On / Taking Off Footwear Location of putting on / taking off footwear: Sitting in manual wheelchair Tasks completed: Sock(s) and Slip-on shoe(s) Overall assist level: SUBSTANTIAL / MAXIMAL ASSISTANCE: MORE THAN HALF (50% - 99%) Additional documentation: N/A MOBILITY: Transfers: Mod assist for stand pivot transfer from recliner to w/c Mod assist for sit <> stand at grab bar HEARING / SPEECH / VISION: Expression of ideas and wants Overall assist level: WITHOUT DIFFICULTY Understanding verbal and non-verbal content Overall assist level: UNDERSTANDS Caregiver present (yes / no): No Education & training provided: Role of OT, OT plan of care, ADL training, Compensatory ADL strategies, Rasheed / One-handed techniques, Functional transfer training, and Safety education ASSESSMENT: Activity tolerance / response to OT: GOOD PARTICIPATION, GOOD MOTIVATION, and RECEPTIVE TO EDUCATION / TRAINING Progress towards goals: Please refer to Care Plan from this date for progress towards individual goals. PLAN: Therapy Plan: Please refer to most recent Inpatient Rehabilitation Team Conference note for discharge plan, including location, recommended level of supervision, and arrangements. Frequency of therapy: BID SESSIONS 5 DAYS / WEEK TO ADDRESS PREVIOUSLY ESTABLISHED DEFICITS AND GOALS Rosalia Marinelli OT 12/21/23 * Paresh Prieto, NUMEROLOGIST - 12/21/2023 9:05 AM CDT SPEECH LANGUAGE PATHOLOGY PROGRESS NOTE Patient's Name: Gunjan Gtz JrMason : 1945 Age: 78 y.o. Time In: 9:02 Time Out: 9:30 Patient Active Problem List Diagnosis Primary osteoarthritis of both knees Subchondral insufficiency fracture of condyle of left femur (CMS/HCC) (HCC) Closed fracture of left tibial plateau with delayed healing Closed fracture of right tibial plateau with delayed healing Closed nondisplaced osteochondral fracture of left patella with delayed healing Closed osteochondral fracture of patella, right, with delayed healing, subsequent encounter Complex tear of medial meniscus of right knee as current injury Complex tear of medial meniscus of left knee as current injury Goiter Breast pain, right Cataract of right eye Diplopia Esotropia Hypertropia of right eye Skin lesion of breast Edema Intermittent claudication (HCC) Iron deficiency anemia Peripheral vascular disease (HCC) Pain due to total right knee replacement (CMS/HCC) ([facility]) Hamstring tendinitis of right thigh Quadriceps weakness Idiopathic peripheral neuropathy Abnormality of gait and mobility Hx of total knee replacement, right Neuropathy (CMS/HCC) 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 Biceps tendinitis of left upper extremity Tear of left glenoid labrum Coffee ground emesis Upper GI bleed Acquired hypothyroidism Acute blood loss anemia Lung nodule Nocturnal cough Hiatal hernia Infrarenal abdominal aortic aneurysm (AAA) without rupture (HCC) Acute CVA (cerebrovascular accident) ([facility]) Moderate malnutrition (CMS/HCC) Past Medical History: Diagnosis Date Acute gastric ulcer without hemorrhage or perforation Ulcer, gastric, acute - (Added by TW Conv) Alzheimer's dementia ([facility]) Asthma Back pain Cataract Closed fracture of left tibial plateau with delayed healing Closed fracture of right tibial plateau with delayed healing Closed nondisplaced osteochondral fracture of left patella with delayed healing Closed osteochondral fracture of patella, right, with delayed healing, subsequent encounter Clotting disorder (CMS/HCC) ([facility]) Complex tear of medial meniscus of left knee as current injury Complex tear of medial meniscus of right knee as current injury Cramps of lower extremity Diverticulitis of colon Easy bruisability Fatigue Frequent urination Gastroesophageal reflux disease GERD Hypothyroidism Incontinence of urine Muscle weakness Osteoarthritis Osteoarthritis Peptic ulcer Peptic ulcer disease Seizures ([facility]) 1997 last seizure in 1997 SOB (shortness of breath) on exertion Subchondral insufficiency fracture of condyle of left femur (CMS/HCC) ([facility]) Vertigo Vision changes Visual disturbance hx of double vision, corrective lenses Past Surgical History: Procedure Laterality Date CATARACT EXTRACTION, BILATERAL Bilateral 2018 HERNIA REPAIR 1979 Hiatal Hernia repair KNEE ARTHROSCOPY Bilateral THYROIDECTOMY 12/27/2019 SUBJECTIVE MENTAL STATUS: Awake and cooperative. Resting in recliner. Reports hand cramping every morning. notified. PAIN: Pre Therapy Pain Level:5/10 Pain Location: right hand Pain Intervention: RN and MD notified Post Therapy Pain Level/Response to Intervention: 0/10 - patient reports pain when using right hand only OBJECTIVE PRECAUTIONS: Fall precautions SWALLOWING: Patient continues to tolerate regular consistency diet/thin liquids. Improvement noted with secretion management. Intermittent use of finger/lingual sweep or liquid wash to clear residue. COGNITION: Cognitive deficits in short term memory and thought organization COMMUNICATION: Mild dysarthric speech TREATMENT ACTIVITIES: Recall daily activities/recent events with 100% accuracy Word retention given 4 words and using repetition with 100% accuracy Insight into deficits with 70% accuracy EDUCATION: PATIENT/FAMILY EDUCATION: Reviewed safety precautions with patient Response to Education: Understanding verbalized ASSESSMENT Activity Tolerance/Response to S.T.: Tolerated speech therapy session with no complaints Barriers to learning: Communication, Cognition, Vision Current status: Patient able to perform short term recall tasks using compensatory strategies accurately. Continues to report decreased short term memory skills, however, reports decline was prior toCVA. Progress toward goals: Patient continues to progress toward previously set goals which remain appropriate at this time. PLAN Multi-Disciplinary Problems (from Speech Therapy) Active Problems Problem: [facility] Start Date: 12/16/23 Goal Start Date Expected End Date End Date [facility] 1 12/16/23 12/23/23 -- Goal Details: Patient to perform short term memory tasks using compensatory strategies with 80% accuracy. Goal Start Date Expected End Date End Date [facility] 2 12/16/23 12/23/23 -- Goal Details: Patient to perform functional problem solving/reasoning tasks with 80% accuracy. Goal Start Date Expected End Date End Date [facility] [place]16[place]23 12/23/23 -- Goal Details: Patient to attend to left visual field 80% of the time given 2-3 verbal prompts. Goal Start Date Expected End Date End Date [facility] 4 12/16/23 12/23/23 -- Goal Details: Patient's speech to be 90% intelligible during conversational tasks utilizing compensatory strategies. Frequency of Treatment: BID, 5xs weekly Recommendations: Recommend home with 24 hour supervision at discharge. If this is the last note, consider this the discharge summary. * Madie Oneill PTA - 12/20/2023 4:09 PM CDT Physical Therapy PT PROGRESS NOTE Gunjan Gtz Jr. 78 y.o. 1945 Past Medical History: Diagnosis Date Acute gastric [...] delayed healing, subsequent encounter Clotting disorder (CMS/HCC) ([facility]) Complex tear of medial meniscus of left knee as current injury Complex tear of medial meniscus of right knee as current injury Cramps of lower extremity Diverticulitis of colon Easy bruisability Fatigue Frequent urination Gastroesophageal reflux disease GERD Hypothyroidism Incontinence of urine Muscle weakness Osteoarthritis Osteoarthritis Peptic ulcer Peptic ulcer disease Seizures ([facility]) 1997 last seizure in 1997 SOB (shortness of breath) on exertion Subchondral insufficiency fracture of condyle of left femur (CMS/HCC) ([facility]) Vertigo Vision changes Visual disturbance hx of double vision, corrective lenses Past Surgical History: Procedure Laterality Date CATARACT EXTRACTION, BILATERAL Bilateral 2018 HERNIA REPAIR 1979 Hiatal Hernia repair KNEE ARTHROSCOPY Bilateral THYROIDECTOMY 12/27/2019 Patient Active Problem List Diagnosis Primary osteoarthritis of both knees Subchondral insufficiency fracture of condyle of left femur (CMS/HCC) ([facility]) Closed fracture of left tibial plateau with delayed healing Closed fracture of right tibial plateau with delayed healing Closed nondisplaced osteochondral fracture of left patella with delayed healing Closed osteochondral fracture of patella, right, with delayed healing, subsequent encounter Complex tear of medial meniscus of right knee as current injury Complex tear of medial meniscus of left knee as current injury Goiter Breast pain, right Cataract of right eye Diplopia Esotropia Hypertropia of right eye Skin lesion of breast Edema Intermittent claudication ([facility]) Iron deficiency anemia Peripheral vascular disease (HCC) Pain due to total right knee replacement (CMS/HCC) ([facility]) Hamstring tendinitis of right thigh Quadriceps weakness Idiopathic peripheral neuropathy Abnormality of gait and mobility Hx of total knee replacement, right Neuropathy (CMS/HCC) 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 Biceps tendinitis of left upper extremity Tear of left glenoid labrum Coffee ground emesis Upper GI bleed Acquired hypothyroidism Acute blood loss anemia Lung nodule Nocturnal cough Hiatal hernia Infrarenal abdominal aortic aneurysm (AAA) without rupture ([facility]) Acute CVA (cerebrovascular accident) ([facility]) Moderate malnutrition (CMS/HCC) TIME IN: 230 TIME OUT: 315 SUBJECTIVE My arm is cramping. Patient with c/o R arm cramps but agreeable and able to participate in and complete therapy. MENTAL STATUS/ORIENTATION: Alert and oriented x4 and Tired PAIN: Pre-therapy pain level: 12/18 Pain location: R arm / wrist Pain intervention: mobility performed to tolerance Post-therapy pain level/response to intervention: none OBJECTIVE PRECAUTIONS: fall APPEARANCE/POSTURE: present in therapy gym, seated in w/c, chair alarm active MOBILITY DOCUMENTATION: Bed Mobility: supine to sit with MIN assist for L LE Sit to supine with MIN assist for trunk Rolls toward L side with SBA Transfers: sit <> stand from w/c to rasheed-aide with MOD assist due to decreased force production. Sit <> stand from solid mat surface to rasheed-aide with MIN assist, mild posterior weight shift/ weight bearing. Stand pivot with use of rasheed-cane from w/c <> mat table and w/c to recliner with MOD assist. Improvement of movement of KATELIN LE this afternoon. Ambulation: 10' with rasheed-aide, w/c follow for safety and MOD assist. Improved clearance and placement of L LE, improved posture with reduced forward bend to advance R LE. Stairs: NA Wheelchair management & propulsion: NT TREATMENT: Patient performs supine HEP x 10 reps: R LE: SLR, heel slides, hip ABD, SAQ, bridges L LE: heel slides, SAQ, bridges with MIN assist decreased ROM Appearance/Posture at end of treatment session: returned to room, seated in recliner, chair alarm active, call light in reach, KATELIN LE elevated. EDUCATION: PATIENT/FAMILY EDUCATION: supine HEP, transfer safety Response to Education: needs reinforcement and verbalizes understanding ASSESSMENT Activity tolerance/response to PT: GOOD Patient is making small incremental improvements each session. Barriers to learning: unchanged from AM Barriers to discharge: unchanged from AM Patient continues progressing toward previously set goals which remain appropriate at this time. PLAN Patient to be seen bid 5x/week to address previously established deficits and goals. * Rosalia Marinelli OT - 12/20/2023 1:45 PM CDT Occupational Therapy NOTE TYPE: OT TREATMENT ([facility] DEPARTMENT SESSION) PATIENT'S NAME: Gunjan Gtz Jr. AGE / SEX: 78 y.o. / male ROOM: [place] [id number] : 1945 DATE: 12/20/23 TIME IN: 1345 TIME OUT: 1417 Patient Active Problem List Diagnosis Primary osteoarthritis of both knees Subchondral insufficiency fracture of condyle of left femur (CMS/HCC) ([facility]) Closed fracture of left tibial plateau with delayed healing Closed fracture of right tibial plateau with delayed healing Closed nondisplaced osteochondral fracture of left patella with delayed healing Closed osteochondral fracture of patella, right, with delayed healing, subsequent encounter Complex tear of medial meniscus of right knee as current injury Complex tear of medial meniscus of left knee as current injury Goiter Breast pain, right Cataract of right eye Diplopia Esotropia Hypertropia of right eye Skin lesion of breast Edema Intermittent claudication ([facility]) Iron deficiency anemia Peripheral vascular disease ([facility]) Pain due to total right knee replacement (CMS/HCC) ([facility]) Hamstring tendinitis of right thigh Quadriceps weakness Idiopathic peripheral neuropathy Abnormality of gait and mobility Hx of total knee replacement, right Neuropathy (CMS/HCC) 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 Biceps tendinitis of left upper extremity Tear of left glenoid labrum Coffee ground emesis Upper GI bleed Acquired hypothyroidism Acute blood loss anemia Lung nodule Nocturnal cough Hiatal hernia Infrarenal abdominal aortic aneurysm (AAA) without rupture ([facility]) Acute CVA (cerebrovascular accident) ([facility]) Moderate malnutrition (CMS/[facility]) Past Medical History: Diagnosis Date Acute gastric ulcer without hemorrhage or perforation Ulcer, gastric, acute - (Added by TW Conv) Alzheimer's dementia ([facility]) Asthma Back pain Cataract Closed fracture of left tibial plateau with delayed healing Closed fracture of right tibial plateau with delayed healing Closed nondisplaced osteochondral fracture of left patella with delayed healing Closed osteochondral fracture of patella, right, with delayed healing, subsequent encounter Clotting disorder (CMS/HCC) ([facility]) Complex tear of medial meniscus of left knee as current injury Complex tear of medial meniscus of right knee as current injury Cramps of lower extremity Diverticulitis of colon Easy bruisability Fatigue Frequent urination Gastroesophageal reflux disease GERD Hypothyroidism Incontinence of urine Muscle weakness Osteoarthritis Osteoarthritis Peptic ulcer Peptic ulcer disease Seizures ([facility]) 1997 last seizure in 1997 SOB (shortness of breath) on exertion Subchondral insufficiency fracture of condyle of left femur (CMS/HCC) ([facility]) Vertigo Vision changes Visual disturbance hx of double vision, corrective lenses Past Surgical History: Procedure Laterality Date CATARACT EXTRACTION, BILATERAL Bilateral 2018 HERNIA REPAIR 1980 Hiatal Hernia repair KNEE ARTHROSCOPY Bilateral THYROIDECTOMY 12/27/2019 PRECAUTIONS (INCLUDING WEIGHT-BEARING): Fall risk and Bed / chair alarm SUBJECTIVE: I can't wear the [place] pants without the [place] shirt THERAPY PAIN: PRE-THERAPY PAIN LEVEL: 0 / 10 PAIN LOCATION: R hand due to cramps PAIN INTERVENTION(S): Repositioned POST-THERAPY PAIN LEVEL: 5 / 10 PAIN SCALE USED: 0-10 SCALE OBJECTIVE: APPEARANCE: PRESENTATION UPON OT ARRIVAL: PATIENT Sitting in bedside recliner PRESENTATION UPON OT DEPARTURE: PATIENT Sitting in manual wheelchair with staff assistance BED / CHAIR ALARM IN PLACE AND ACTIVATED UPON OT DEPARTURE: Yes CALL LIGHT WITHIN ARMS REACH OF PATIENT AT END OF SESSION: No - due to patient taken to physical therapy gym COMPLETED PATIENT HANDOFF AND NOTIFIED Physical Therapist / Physical Therapist Human Resources Clerk, NAME: Marcia, OF PATIENT'S LOCATION AND FUNCTIONAL STATUS UPON COMPLETION OF SESSION COGNITIVE / PERCEPTUAL: Alert and oriented to conversation MOBILITY: TRANSFERS: Max assist for stand pivot from recliner to w/c; patient with increased difficulty progressing feetduring transfer Mod assist for sit <> stand at grab bar LIVING SKILLS: UE Dressing Location of UE dressing: Sitting in manual wheelchair Tasks completed: Sweatshirt Overall assist level: PARTIAL / MODERATE ASSISTANCE: LESS THAN HALF (1% - 49%) Additional documentation: MOD assist overall. Patient required assist to thread LUE through sweatshirt. Min assist to pull sweatshirt fully down over abdomen LE DRESSING (UNDERWEAR / PANTS) LOCATION OF LE DRESSING (UNDERWEAR / PANTS): Sitting in manual wheelchair and Standing at grab bar TASKS COMPLETED: Elastic waist pants and Incontinence briefs as underwear OVERALL ASSIST LEVEL: SUBSTANTIAL / MAXIMAL ASSISTANCE: MORE THAN HALF (50% - 99%) ADDITIONAL DOCUMENTATION: MAX assist overall. Assist to thread brief/pants over LLE and pull brief/pants over hips in standing. Mod assist for standing balance at grab bar PUTTING ON / TAKING OFF FOOTWEAR LOCATION OF PUTTING ON / TAKING OFF FOOTWEAR: Sitting in manual wheelchair TASKS COMPLETED: Slip-on shoe(s) OVERALL ASSIST LEVEL: SUBSTANTIAL / MAXIMAL ASSISTANCE: MORE THAN HALF (50% - 99%) ADDITIONAL DOCUMENTATION: N/A CAREGIVER PRESENT (YES / NO): No EDUCATION & TRAINING PROVIDED: Role of OT, OT plan of care, ADL training, Functional transfer training, and Safety education ASSESSMENT: ACTIVITY TOLERANCE / RESPONSE TO OT: GOOD PARTICIPATION, GOOD MOTIVATION, and RECEPTIVE TO EDUCATION / TRAINING PROGRESS TOWARDS GOALS: PLEASE REFER TO CARE PLAN FROM THIS DATE FOR PROGRESS TOWARDS INDIVIDUAL GOALS PLAN: PLEASE REFER TO MOST RECENT INPATIENT REHABILITATION TEAM CONFERENCE NOTE FOR DISCHARGE PLAN, INCLUDING LOCATION, RECOMMENDED LEVEL OF SUPERVISION AND ARRANGEMENTS. FREQUENCY OF THERAPY: BID SESSIONS 5 DAYS / WEEK TO ADDRESS PREVIOUSLY ESTABLISHED DEFICITS AND GOALS Rosalia Marinelli, OT 12/20/23 * Paresh Prieto, NUMEROLOGIST - 12/20/2023 12:46 PM CDT SPEECH LANGUAGE PATHOLOGY PROGRESS NOTE Patient's Name: Gunjan Gtz Jr. : 1945 Age: 78 y.o. Time In: 12:42 Time Out: 13:07 Patient Active Problem List Diagnosis Primary osteoarthritis of both knees Subchondral insufficiency fracture of condyle of left femur (CMS/HCC) ([facility]) Closed fracture of left tibial plateau with delayed healing Closed fracture of right tibial plateau with delayed healing Closed nondisplaced osteochondral fracture of left patella with delayed healing Closed osteochondral fracture of patella, right, with delayed healing, subsequent encounter Complex tear of medial meniscus of right knee as current injury Complex tear of medial meniscus of left knee as current injury Goiter Breast pain, right Cataract of right eye Diplopia Esotropia Hypertropia of right eye Skin lesion of breast Edema Intermittent claudication (HCC) Iron deficiency anemia Peripheral vascular disease (HCC) Pain due to total right knee replacement (CMS/HCC) ([facility]) Hamstring tendinitis of right thigh Quadriceps weakness Idiopathic peripheral neuropathy Abnormality of gait and mobility Hx of total knee replacement, right Neuropathy (CMS/HCC) 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 Biceps tendinitis of left upper extremity Tear of left glenoid labrum Coffee ground emesis Upper GI bleed Acquired hypothyroidism Acute blood loss anemia Lung nodule Nocturnal cough Hiatal hernia Infrarenal abdominal aortic aneurysm (AAA) without rupture (HCC) Acute CVA (cerebrovascular accident) (HCC) Moderate malnutrition (CMS/HCC) Past Medical History: Diagnosis Date Acute gastric [...] with delayed healing, subsequent encounter Clotting disorder (CMS/[facility]) ([facility]) Complex tear of medial meniscus of left knee as current injury Complex tear of medial meniscus of right knee as current injury Cramps of lower extremity Diverticulitis of colon Easy bruisability Fatigue Frequent urination Gastroesophageal reflux disease GERD Hypothyroidism Incontinence of urine Muscle weakness Osteoarthritis Osteoarthritis Peptic ulcer Peptic ulcer disease Seizures ([facility]) 1997 last seizure in 1997 SOB (shortness of breath) on exertion Subchondral insufficiency fracture of condyle of left femur (CMS/[facility]) ([facility]) Vertigo Vision changes Visual disturbance hx of double vision, corrective lenses Past Surgical History: Procedure Laterality Date CATARACT EXTRACTION, BILATERAL Bilateral 2018 HERNIA REPAIR 1979 Hiatal Hernia repair KNEE ARTHROSCOPY Bilateral THYROIDECTOMY 12/27/2019 SUBJECTIVE MENTAL STATUS: Patient awake and cooperative, resting in recliner. PAIN: Pre Therapy Pain Level: 0/10 Pain Location: N/A Pain Intervention: N/A Post Therapy Pain Level/Response to Intervention: 0/10 OBJECTIVE PRECAUTIONS: Fall precautions SWALLOWING: Patient continues to tolerate regular consistency diet/thin liquids. Requires intermittent finger/lingual sweep or liquid wash to clear residue from left side of oral cavity. COGNITION: Cognitive deficits in memory and thought organization. COMMUNICATION: Mild dysarthric speech. TREATMENT ACTIVITIES: Oral motor exercises 10xs each Recall daily activities/recent events with 80% accuracy Insight into deficits with 70% accuracy EDUCATION: PATIENT/FAMILY EDUCATION: Reviewed progress with patient Response to Education: Needs reinforcement ASSESSMENT Activity Tolerance/Response to S.T.: Tolerated speech therapy session with no complaints Barriers to learning: Cognition, Communication, Vision Current status: Patient continues to demonstrate left visual inattention, decreased memory and insight into deficits. Increased management of secretions noted. Progress toward goals: Patient continues to progress toward previously set goals which remain appropriate at this time. PLAN Multi-Disciplinary Problems (from Speech Therapy) Active Problems Problem: [place]OLOG[place] [facility] [place]: 12/16/23 Goal Start Date Expected End Date End Date [facility] [place]16[place]23 12/23/23 -- Goal Details: Patient to perform short term memory tasks using compensatory strategies with 80% accuracy. Goal Start Date Expected End Date End Date [facility] [place] 12/16/23 12/23/23 -- Goal Details: Patient to perform functional problem solving/reasoning tasks with 80% accuracy. Goal Start Date Expected End Date End Date NUMEROLOGIST [facility] - Misc 3 12/16/23 12/23/23 -- Goal Details: Patient to attend to left visual field 80% of the time given 2-3 verbal prompts. Goal Start Date Expected End Date End Date NUMEROLOGIST [facility] - Misc 4 12/16/23 12/23/23 -- Goal Details: Patient's speech to be 90% intelligible during conversational tasks utilizing compensatory strategies. Frequency of Treatment: BID, 5xs weekly Recommendations: Recommend home with 24 hour supervision at discharge. If this is the last note, consider this the discharge summary. * Madie Oneill, MARQUEZ - 12/20/2023 12:23 PM CDT Physical Therapy PT PROGRESS NOTE Gunjan Gtz Jr. 78 y.o. 1945 Past Medical History: Diagnosis Date Acute gastric [...] delayed healing, subsequent encounter Clotting disorder (CMS/HCC) (HCC) Complex tear of medial meniscus of left knee as current injury Complex tear of medial meniscus of right knee as current injury Cramps of lower extremity Diverticulitis of colon Easy bruisability Fatigue Frequent urination Gastroesophageal reflux disease GERD Hypothyroidism Incontinence of urine Muscle weakness Osteoarthritis Osteoarthritis Peptic ulcer Peptic ulcer disease Seizures (HCC) 1997 last seizure in 1997 SOB (shortness of breath) on exertion Subchondral insufficiency fracture of condyle of left femur (CMS/HCC) (HCC) Vertigo Vision changes Visual disturbance hx of double vision, corrective lenses Past Surgical History: Procedure Laterality Date CATARACT EXTRACTION, BILATERAL Bilateral 2018 HERNIA REPAIR 1980 Hiatal Hernia repair KNEE ARTHROSCOPY Bilateral THYROIDECTOMY 12/27/2019 Patient Active Problem List Diagnosis Primary osteoarthritis of both knees Subchondral insufficiency fracture of condyle of left femur (CMS/HCC) (HCC) Closed fracture of left tibial plateau with delayed healing Closed fracture of right tibial plateau with delayed healing Closed nondisplaced osteochondral fracture of left patella with delayed healing Closed osteochondral fracture of patella, right, with delayed healing, subsequent encounter Complex tear of medial meniscus of right knee as current injury Complex tear of medial meniscus of left knee as current injury Goiter Breast pain, right Cataract of right eye Diplopia Esotropia Hypertropia of right eye Skin lesion of breast Edema Intermittent claudication (HCC) Iron deficiency anemia Peripheral vascular disease (HCC) Pain due to total right knee replacement (CMS/HCC) (HCC) Hamstring tendinitis of right thigh Quadriceps weakness Idiopathic peripheral neuropathy Abnormality of gait and mobility Hx of total knee replacement, right Neuropathy (CMS/HCC) 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 Biceps tendinitis of left upper extremity Tear of left glenoid labrum Coffee ground emesis Upper GI bleed Acquired hypothyroidism Acute blood loss anemia Lung nodule Nocturnal cough Hiatal hernia Infrarenal abdominal aortic aneurysm (AAA) without rupture (HCC) Acute CVA (cerebrovascular accident) (HCC) Moderate malnutrition (CMS/HCC) TIME IN: 1105 TIME OUT: 1150 SUBJECTIVE I'm tired. I didn't get to rest after I put on my clothes. Patient is agreeable to therapy. MENTAL STATUS/ORIENTATION: Alert and oriented x4 PAIN: Pre-therapy pain level: 2/10 Pain location: R hip Pain intervention: mobility performed to tolerance Post-therapy pain level/response to intervention: no changes OBJECTIVE PRECAUTIONS: fall APPEARANCE/POSTURE: present in therapy gym, seated in w/c, chair alarm active MOBILITY DOCUMENTATION: Bed Mobility: NT Transfers: sit <> stand from w/c to rasheed-bar with MOD assist Stand pivot transfer from w/c to recliner with MAX assist. Single standing trial ~ 90s with weight shifting, engagement of L LE while weight shifting. Ambulation: 6' + 8' with rasheed-aide, w/c follow and MAX assist. Patient is demonstrating some movement of L LE. Placement is not controlled, continues with significant forward weight shift when tryingto advance R LE. Frequent verbal and tactile cues for tall posture. Stairs: NA Wheelchair management & propulsion: 40' forward with L turns and SPV. V/C regarding direction. TREATMENT: Patient performs seated HEP with R LE: toe taps, heel taps, LAQ, marching x 10 reps Patient demonstrates 5 reps seated heel slide, toe tap, hamstring curl and hip ABD (MOD assist) hipADD with sheet assist. Limited ROM, mild compensation at hip / lower back. Appearance/Posture at end of treatment session: returned to room, seated in recliner, set up of lunch. Call light in reach, chair alarm active. Lunch items opened and set up. EDUCATION: PATIENT/FAMILY EDUCATION: posture, sequencing, HEP Response to Education: needs reinforcement ASSESSMENT Activity tolerance/response to PT: GOOD Patient is gaining some limited mobility in L LE. Continuesto have compensating posture, heavy forward lean. Barriers to learning: Physical Barriers to discharge: Pain, Limited family support, Limited insight into deficits, Decreased endurance, Decreased proprioception, Upper extremity weakness, Lower extremity weakness, and Stairs at home Patient continues progressing toward previously set goals which remain appropriate at this time. PLAN Patient to be seen bid 5x/week to address previously established deficits and goals. * Becky Montana MD - 12/20/2023 11:54 AM CDT INPATIENT REHABILITATION DAILY PROGRESS NOTE CHIEF COMPLAINT: right posterior limb internal capsule infarct SUBJECTIVE: Asking about his vision. States he has an eye doctor appointment tomorrow. OBJECTIVE: VITALS: Vitals: 12/19/23 0825 12/19/23 1858 12/20/23 0654 12/20/23 0759 BP: 157/99 129/75 BP Location: Right arm Patient Position: Lying Sitting Pulse: 92 84 Resp: 19 18 Temp: 36.7 ??C (98 ??F) 36.9 ??C (98.5 ??F) TempSrc: Temporal Oral SpO2: 96% 98% 94% 94% Weight: Height: PHYSICAL EXAM: General: no acute distress, in chair HEENT: normocephalic, trachea midline Heart: rrr Lungs: ctab GI: soft, nontender Neuro: alert, awake LABS/RADIOLOGY/DIAGNOSTIC REVIEW Recent Labs Lab Units 12/20/23 0404 WBC K/cumm 7.9 HEMOGLOBIN g/dL 13.7 HEMATOCRIT % 42.0 PLATELETS K/cumm 253 Recent Labs Lab Units 12/20/23 0404 SODIUM mmol/L 139 POTASSIUM PLASMA mmol/L 4.6 CHLORIDE mmol/L 104 CO2 mmol/L 25 ANIONGAP mmol/L 10 GLUCOSE mg/dL 112 BUN SERUM mg/dL 19 CREATININE mg/dL 1.25 CALCIUM mg/dL 9.0 ALBUMIN g/dL 3.4* ALK PHOS Units/L 117 ALT Units/L 16 AST Units/L 24 BILIRUBIN TOTAL mg/dL 0.4 Recent Labs Lab Units 12/20/23 0404 12/16/23 0411 12/14/23 0427 GLUCOSE mg/dL 112 107 118 OT Functional Mobility: 12/15 Functional transfers: MAX-TOTAL OT Self Care: 12/15 Bathing: TOTAL Grooming: MAX UB dress:MAX LB dress: TOTAL Footwear: TOTAL Toileting:TOTAL PT Functional Mobility: eval: Bed Mobility: Sit to supine with mod assist of 1 for left LE and trunk, supine to sit with mod assist of 1 for left LE and trunk. Rolls left with min assist, rolls rightwith mod assist and cues to attend to left arm. Transfers: sit to/from stand with mod assist of 1, transfers w/c to/from bed going to the right with mod assist of 1. Max assist transferring to the left. Second person for safety for transfers Ambulation: 5' at rasheed bar , max assist of 1 with w/c follow. Patient requires assist for left LE advancement and stability, cues for weight shift, cues for posture, assist for trunk control. Stairs: unsafe Wheelchair management & propulsion: propels w/c 50' using rasheed technique and max assist of 1 No results found. MEDICATIONS: Current Facility-Administered Medications: acetaminophen (TYLENOL) tablet 650 mg, 650 mg, oral, Q6H PRN, Becky Montana MD, 650 mg at 12/19/23 1848 albuterol HFA (PROVENTIL HFA,VENTOLIN HFA,PROAIR HFA) 90 mcg/actuation inhaler 2 puff, 2 puff, inhalation, Q4H PRN (RT), Becky Montana MD aspirin chewable tablet 81 mg, 81 mg, oral, Daily, Becky Montana MD, 81 mg at 12/20/23 0822 calcium carbonate (TUMS) chewable tablet 1,000 mg, 400 mg of elemental calcium, oral, TID PRN, Becky Montana MD donepeziL (ARICEPT) tablet 10 mg, 10 mg, oral, Nightly, Becky Montana MD, 10 mg at 12/19/232016 enoxaparin (LOVENOX) syringe 40 mg, 40 mg, subcutaneous, Daily-2100, Becky Rudd MD, 40 mg at 12/19/232016 fluticasone furoate-vilanteroL (BREO ELLIPTA) 100-25 mcg/dose inhaler 1 puff, 1 puff, inhalation, Daily (RT), Becky Montana MD, 1 puff at 12/20/23 0759 gabapentin (NEURONTIN) capsule 300 mg, 300 mg, oral, TID, Becky Montana MD, 300 mg at 12/20/23 0823 levothyroxine (SYNTHROID) tablet 150 mcg, 150 mcg, oral, Daily - 0600, Becky Rudd MD, 150 mcg at 12/20/23 0632 ofloxacin (OCUFLOX) 0.3 % ophthalmic solution 1 drop, 1 drop, each eye, Daily PRN, Becky Montana MD ondansetron (ZOFRAN) tablet 4 mg, 4 mg, oral, TID PRN, Becky Montana MD oxyCODONE (ROXICODONE) tablet 5 mg, 5 mg, oral, Q4H PRN, Becky Montana MD, 5 mg at 12/18/[address] (PROTONIX) extended release tablet 40 mg, 40 mg, oral, BID, Jl Montana MD, 40 mg at 12/20/23 0823 polyethylene glycol (MIRALAX) packet 17 g, 17 g, oral, Daily, Becky Montana MD, 17 gat 12/20/23 0822 ramelteon (ROZEREM) tablet 8 mg, 8 mg, oral, Nightly PRN, Becky Montana MD, 8 mg at 12/19/232022 rosuvastatin (CRESTOR) tablet 40 mg, 40 mg, oral, Daily, Becky Montana MD, 40 mg at 12/20/23 0822 senna-docusate (PERICOLACE) 8.6-50 mg per tablet 1 tablet, 1 tablet, oral, BID PRN, Becky Montana MD, 1 tablet at 12/19/23 0837 simethicone (MYLICON) chewable tablet 80 mg, 80 mg, oral, TID PRN, Becky Rudd MD tamsulosin (FLOMAX) extended release capsule 0.4 mg, 0.4 mg, oral, Nightly, Jl Montana MD, 0.4 mg at 12/19/232016 tiZANidine (ZANAFLEX) tablet 2 mg, 2 mg, oral, TID PRN, Becky Montana MD, 2 mg at 12/17/23 0844 ASSESSMENT/PLAN: MEDICAL PLAN OF CARE: 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 Impaired mobility, ADLs, transfers, gait, balance, strength, endurance, speech, cognition, swallow PT OT eval NUMEROLOGIST eval Continue aspirin 81mg, rosuvastatin 40mg Ophtho outpatient HTN: no current medications, monitor bp 12/15: controlled 12/16: controlled 12/19: controlled HLD: continue rosuvastatin 40mg AAA: no current medications Hypothyroidism: continue levothyroxine 150mcg GERD: continue pantoprazole 40mg bid Alzheimer: continue donepezil 10mg qhs Depression: no current medications Asthma: continue breo ellipta 100-25 daily BPH: continue flomax 0.4mg qhs Neuropathy: continue gabapentin 300mg tid Pain: Start Tylenol 650mg q6h prn, oxycodone 5mg q4h prn Bowels: Start miralax daily, pericolace bid prn, simethicone prn 12/16: dulcolax 10mg x1 Nausea: Start Zofran prn, Tums prn Diet: Reg/Thin HH 2G Na DVT ppx: restart lovenox Precautions: Fall Weightbearing status: full Code: Full Code Care discussed with Nursing, OT Reviewed vital signs, intake, bowel, and bladder - as above Reviewed weekly cmp, cbc - wnl REHAB PLAN OF CARE: Patient's expected intensity and duration of participation in the interdisciplinary rehabilitation program and disciplines that comprise this team: Therapies required to achieve goals:The patient will benefit from integrated coordination of care from the following interdisciplinary services: Medical Supervision, 24 hours Rehabilitation Nursing, Physical Therapy, Occupational Therapy, Case Management; Social Work; Therapeutic Recreation; SpeechTherapy; Flatwork Feeder Frequency and duration of therapies expect to be:Expected intensity and frequency of participation in the interdisciplinary rehab program is: 3 hours per day except Wednesday. Expected intensity and frequency of Physical Therapy (PT): 1.5 hours per day over 5-7 days for the duration of length of stay Expected intensity and frequency of Occupational Therapy (OT): 1.5 hours per day over 5-7 days per week for the duration of length of stay Expected intensity and frequency of Speech Therapy (NUMEROLOGIST): 1 hour per day per day over 5-7 days per week for the duration of length of stay FUNCTIONAL CHANGE: Sit to stand: modA DISCHARGE PLANNING: Expected Discharge Date: TBD Equipment: TBD Family Training: SW to set up Education: Follow up Appointments: PCP 1-2 weeks Becky Montana MD Physical Medicine and Rehabilitation I can be reached from 7am-7pm through [email or web address] chat. Hospitalist forest fire prevention manager from 7pm-7am * Paresh Prieto SLP - 12/20/2023 10:15 AM CDT SPEECH LANGUAGE PATHOLOGY PROGRESS NOTE Patient's Name: Gunjan Gtz Jr. : 1945 Age: 78 y.o. Time In: 9:35 Time Out: 10:02 Patient Active Problem List Diagnosis Primary osteoarthritis of both knees Subchondral insufficiency fracture of condyle of left femur (CMS/HCC) (HCC) Closed fracture of left tibial plateau with delayed healing Closed fracture of right tibial plateau with delayed healing Closed nondisplaced osteochondral fracture of left patella with delayed healing Closed osteochondral fracture of patella, right, with delayed healing, subsequent encounter Complex tear of medial meniscus of right knee as current injury Complex tear of medial meniscus of left knee as current injury Goiter Breast pain, right Cataract of right eye Diplopia Esotropia Hypertropia of right eye Skin lesion of breast Edema Intermittent claudication (HCC) Iron deficiency anemia Peripheral vascular disease ([facility]) Pain due to total right knee replacement (CMS/HCC) ([facility]) Hamstring tendinitis of right thigh Quadriceps weakness Idiopathic peripheral neuropathy Abnormality of gait and mobility Hx of total knee replacement, right Neuropathy (CMS/HCC) 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 Biceps tendinitis of left upper extremity Tear of left glenoid labrum Coffee ground emesis Upper GI bleed Acquired hypothyroidism Acute blood loss anemia Lung nodule Nocturnal cough Hiatal hernia Infrarenal abdominal aortic aneurysm (AAA) without rupture ([facility]) Acute CVA (cerebrovascular accident) ([facility]) Moderate malnutrition (CMS/[facility]) Past Medical History: Diagnosis Date Acute gastric ulcer without hemorrhage or perforation Ulcer, gastric, acute - (Added by TW Conv) Alzheimer's dementia ([facility]) Asthma Back pain Cataract Closed fracture of left tibial plateau with delayed healing Closed fracture of right tibial plateau with delayed healing Closed nondisplaced osteochondral fracture of left patella with delayed healing Closed osteochondral fracture of patella, right, with delayed healing, subsequent encounter Clotting disorder (CMS/HCC) ([facility]) Complex tear of medial meniscus of left knee as current injury Complex tear of medial meniscus of right knee as current injury Cramps of lower extremity Diverticulitis of colon Easy bruisability Fatigue Frequent urination Gastroesophageal reflux disease GERD Hypothyroidism Incontinence of urine Muscle weakness Osteoarthritis Osteoarthritis Peptic ulcer Peptic ulcer disease Seizures ([facility]) 1997 last seizure in 1997 SOB (shortness of breath) on exertion Subchondral insufficiency fracture of condyle of left femur (CMS/HCC) ([facility]) Vertigo Vision changes Visual disturbance hx of double vision, corrective lenses Past Surgical History: Procedure Laterality Date CATARACT EXTRACTION, BILATERAL Bilateral 2018 HERNIA REPAIR 1979 Hiatal Hernia repair KNEE ARTHROSCOPY Bilateral THYROIDECTOMY 12/27/2019 SUBJECTIVE MENTAL STATUS: Patient awake, resting in recliner. Uncomfortable in recliner. PCT and NUMEROLOGIST assisted patient with repositioning. PAIN: Pre Therapy Pain Level: 0/10 Pain Location: N/A Pain Intervention: N/A Post Therapy Pain Level/Response to Intervention: 0/10 OBJECTIVE PRECAUTIONS: Fall SWALLOWING: Patient continues to tolerate regular consistency diet/thin liquids. Reports intermittent residue on left side of oral cavity. Uses finger sweep to clear. COGNITION: Cognitive deficits in short term memory and thought organization. COMMUNICATION: Dysarthric speech TREATMENT ACTIVITIES: Recall daily activities/recent events with 80% accuracy Attend to left visual field 10% of the time independently. Able to scan to left visual field 3/3 trials with verbal cues. Identify deficits with 100% accuracy. EDUCATION: PATIENT/FAMILY EDUCATION: Reviewed stroke recovery with patient Response to Education: Needs reinforcement ASSESSMENT Activity Tolerance/Response to S.T.: Tolerated speech therapy session with no complaints Barriers to learning: Cognition, Communication, Vision Current status: Patient with mild/moderate dysarthric speech, left facial asymmetry and decreased short term memory. Reports double vision. Dr. Miguel and O.T. notified. Progress toward goals: Patient continues to progress toward previously set goals which remain appropriate at this time. PLAN Multi-Disciplinary Problems (from Speech Therapy) Active Problems Problem: [place]OLOG[place] [facility] [place]: 12/16/23 Goal Start Date Expected End Date End Date Formerly [facility] 1 12/16/23 12/23/23 -- Goal Details: Patient to perform short term memory tasks using compensatory strategies with 80% accuracy. Goal Start Date Expected End Date End Date Formerly [facility] 2 12/16/23 12/23/23 -- Goal Details: Patient to perform functional problem solving/reasoning tasks with 80% accuracy. Goal Start Date Expected End Date End Date Formerly [facility] 3 12/16/23 12/23/23 -- Goal Details: Patient to attend to left visual field 80% of the time given 2-3 verbal prompts. Goal Start Date Expected End Date End Date Formerly [facility] 4 12/16/23 12/23/23 -- Goal Details: Patient's speech to be 90% intelligible during conversational tasks utilizing compensatory strategies. Frequency of Treatment: BID, 5xs weekly Recommendations: Recommend home with 24 hour supervision at discharge. If this is the last note, consider this the discharge summary. * Rosalia Marinelli, OT - 12/20/2023 10:00 AM CDT Occupational Therapy NOTE TYPE: OT TREATMENT ([facility] BEDSIDE SESSION) Patient's Name: Gunjan Gtz Jr. Age / Sex: 78 y.o. / male Room: [place] [id number] : 1945 Date: 12/20/23 Time In: 1000 Time Out: 1100 Patient Active Problem List Diagnosis Primary osteoarthritis of both knees Subchondral insufficiency fracture of condyle of left femur (CMS/HCC) (HCC) Closed fracture of left tibial plateau with delayed healing Closed fracture of right tibial plateau with delayed healing Closed nondisplaced osteochondral fracture of left patella with delayed healing Closed osteochondral fracture of patella, right, with delayed healing, subsequent encounter Complex tear of medial meniscus of right knee as current injury Complex tear of medial meniscus of left knee as current injury Goiter Breast pain, right Cataract of right eye Diplopia Esotropia Hypertropia of right eye Skin lesion of breast Edema Intermittent claudication (HCC) Iron deficiency anemia Peripheral vascular disease (HCC) Pain due to total right knee replacement (CMS/HCC) ([facility]) Hamstring tendinitis of right thigh Quadriceps weakness Idiopathic peripheral neuropathy Abnormality of gait and mobility Hx of total knee replacement, right Neuropathy (CMS/HCC) 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 Biceps tendinitis of left upper extremity Tear of left glenoid labrum Coffee ground emesis Upper GI bleed Acquired hypothyroidism Acute blood loss anemia Lung nodule Nocturnal cough Hiatal hernia Infrarenal abdominal aortic aneurysm (AAA) without rupture (HCC) Acute CVA (cerebrovascular accident) (HCC) Moderate malnutrition (CMS/HCC) Past Medical History: Diagnosis Date Acute gastric ulcer without hemorrhage or perforation Ulcer, gastric, acute - (Added by TW Conv) Alzheimer's dementia ([facility]) Asthma Back pain Cataract Closed fracture of left tibial plateau with delayed healing Closed fracture of right tibial plateau with delayed healing Closed nondisplaced osteochondral fracture of left patella with delayed healing Closed osteochondral fracture of patella, right, with delayed healing, subsequent encounter Clotting disorder (CMS/HCC) (HCC) Complex tear of medial meniscus of left knee as current injury Complex tear of medial meniscus of right knee as current injury Cramps of lower extremity Diverticulitis of colon Easy bruisability Fatigue Frequent urination Gastroesophageal reflux disease GERD Hypothyroidism Incontinence of urine Muscle weakness Osteoarthritis Osteoarthritis Peptic ulcer Peptic ulcer disease Seizures (HCC) 1997 last seizure in 1997 SOB (shortness of breath) on exertion Subchondral insufficiency fracture of condyle of left femur (CMS/HCC) ([facility]) Vertigo Vision changes Visual disturbance hx of double vision, corrective lenses Past Surgical History: Procedure Laterality Date CATARACT EXTRACTION, BILATERAL Bilateral 2018 HERNIA REPAIR 1979 Hiatal Hernia repair KNEE ARTHROSCOPY Bilateral THYROIDECTOMY 12/27/2019 Precautions (Including Weight-Bearing): Fall risk and Bed / chair alarm SUBJECTIVE: I want to try myself first Therapy Pain: Pre-therapy pain level: 0 / 10 Pain location: No pain - Location N/A Pain intervention(s): No pain - Intervention N/A Post-therapy pain level: 0 / 10 Pain scale used: 0-10 SCALE OBJECTIVE: APPEARANCE: Presentation upon OT arrival: Patient Sitting in bedside recliner Presentation upon OT departure: PATIENT Sitting in manual wheelchair with staff assistance Bed / chair alarm in place and activated upon OT departure: Yes Call light within arms reach of patient at end of session: No - due to patient taken to physical therapy gym Completed patient handoff and notified Physical Therapist / Physical Therapist Human Resources Clerk, name: Marcia, of patient's location and functional status upon completion of session. COGNITIVE / PERCEPTUAL: Alert and oriented to conversation SELF CARE: Shower / Bathe Self Type of bathing: SPONGEBATHING Location of shower / bathe self: Sitting in manual wheelchair and Standing at grab bar Tasks completed: ALL COMPONENTS Components that required assistance (if applicable): TOTAL ASSIST BUTTOCKS, MAX ASSIST LEFT LOWER LEG, INCLUDING FOOT, and MAX ASSIST RIGHT LOWER LEG, INCLUDING FOOT Overall assist level: TOTAL / DEPENDENT ASSISTANCE (100% / TWO OR MORE HELPERS) Adaptive equipment (if applicable): no assistive device Additional documentation: TOTAL assist overall. Patient required max assist to wash bilateral feet.Patient required max assist x1 for balance and max assist of another to wash buttock while standingat grab bar Oral Hygiene Location of oral hygiene: Sitting in manual wheelchair Overall assist level: PARTIAL / MODERATE ASSISTANCE: LESS THAN HALF (1% - 49%) Additional documentation: MIN assist overall. OT held toothbrush while patient applied toothpaste. Other Grooming Tasks Location of other grooming tasks: Sitting in manual wheelchair Tasks completed: APPLYING DEODORANT Overall assist level: SUBSTANTIAL / MAXIMAL ASSISTANCE: MORE THAN HALF (50% - 99%) Additional documentation: MAX assist overall. Patient required assist to hold up LUE while applyingspray deodorant. Max assist to apply spray deodorant to R underarm UE Dressing Location of UE dressing: Sitting in manual wheelchair Tasks completed: Pullover shirt Overall assist level: PARTIAL / MODERATE ASSISTANCE: LESS THAN HALF (1% - 49%) Additional documentation: MOD assist overall. Patient required assist to thread LUE through short and long sleeved shirt. Min assist to pull shirts fully down over abdomen LE Dressing (Underwear / Pants) Location of LE dressing (Underwear / Pants): Sitting in manual wheelchair and Standing at grab bar Tasks completed: Elastic waist pants and Incontinence briefs as underwear Overall assist level: SUBSTANTIAL / MAXIMAL ASSISTANCE: MORE THAN HALF (50% - 99%) Additional documentation: MAX assist overall. Max assist to thread brief/pants over LLE. Educated patient on use of long handled sales administration specialist to thread pants, however patient with difficulty completing due to decreased ROM in LLE. Mod assist for standing balance at grab bar and max assist to pull brief/pants over hips Putting On / Taking Off Footwear Location of putting on / taking off footwear: Sitting in manual wheelchair Tasks completed: Sock(s) and Slip-on shoe(s) Overall assist level: SUBSTANTIAL / MAXIMAL ASSISTANCE: MORE THAN HALF (50% - 99%) Additional documentation: N/A MOBILITY: Transfers: Mod assist x1/min assist x1 (total assist) for stand pivot from recliner to w/c Mod assist for sit <> stand at grab bar HEARING / SPEECH / VISION: Expression of ideas and wants Overall assist level: WITHOUT DIFFICULTY Understanding verbal and non-verbal content Overall assist level: UNDERSTANDS Caregiver present (yes / no): No Education & training provided: Role of OT, OT plan of care, ADL training, Functional transfer training, Balance training, and Safety education ASSESSMENT: Activity tolerance / response to OT: GOOD PARTICIPATION, GOOD MOTIVATION, and RECEPTIVE TO EDUCATION / TRAINING Progress towards goals: Please refer to Care Plan from this date for progress towards individual goals. PLAN: Therapy Plan: Please refer to most recent Inpatient Rehabilitation Team Conference note for discharge plan, including location, recommended level of supervision, and arrangements. Frequency of therapy: BID SESSIONS 5 DAYS / WEEK TO ADDRESS PREVIOUSLY ESTABLISHED DEFICITS AND GOALS Rosalia Marinelli OT 12/20/23 * Tyrel Vasquez, DIRECTOR OF RECRUITING - 12/18/2023 3:52 PM CST Physical Therapy PT PROGRESS NOTE Gunjan Ulisses Shahid 78 y.o. 1945 Past Medical History: Diagnosis Date Acute gastric ulcer without hemorrhage or perforation Ulcer, gastric, acute - (Added by TW Conv) Alzheimer's dementia ([facility]) Asthma Back pain Cataract Closed fracture of left tibial plateau with delayed healing Closed fracture of right tibial plateau with delayed healing Closed nondisplaced osteochondral fracture of left patella with delayed healing Closed osteochondral fracture of patella, right, with delayed healing, subsequent encounter Clotting disorder (CMS/HCC) ([facility]) Complex tear of medial meniscus of left knee as current injury Complex tear of medial meniscus of right knee as current injury Cramps of lower extremity Diverticulitis of colon Easy bruisability Fatigue Frequent urination Gastroesophageal reflux disease GERD Hypothyroidism Incontinence of urine Muscle weakness Osteoarthritis Osteoarthritis Peptic ulcer Peptic ulcer disease Seizures ([facility]) 1997 last seizure in 1997 SOB (shortness of breath) on exertion Subchondral insufficiency fracture of condyle of left femur (CMS/HCC) ([facility]) Vertigo Vision changes Visual disturbance hx of double vision, corrective lenses Past Surgical History: Procedure Laterality Date CATARACT EXTRACTION, BILATERAL Bilateral 2018 HERNIA REPAIR 1979 Hiatal Hernia repair KNEE ARTHROSCOPY Bilateral THYROIDECTOMY 12/27/2019 Patient Active Problem List Diagnosis Primary osteoarthritis of both knees Subchondral insufficiency fracture of condyle of left femur (CMS/HCC) ([facility]) Closed fracture of left tibial plateau with delayed healing Closed fracture of right tibial plateau with delayed healing Closed nondisplaced osteochondral fracture of left patella with delayed healing Closed osteochondral fracture of patella, right, with delayed healing, subsequent encounter Complex tear of medial meniscus of right knee as current injury Complex tear of medial meniscus of left knee as current injury Goiter Breast pain, right Cataract of right eye Diplopia Esotropia Hypertropia of right eye Skin lesion of breast Edema Intermittent claudication ([facility]) Iron deficiency anemia Peripheral vascular disease ([facility]) Pain due to total right knee replacement (CMS/HCC) (HCC) Hamstring tendinitis of right thigh Quadriceps weakness Idiopathic peripheral neuropathy Abnormality of gait and mobility Hx of total knee replacement, right Neuropathy (CMS/HCC) 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 Biceps tendinitis of left upper extremity Tear of left glenoid labrum Coffee ground emesis Upper GI bleed Acquired hypothyroidism Acute blood loss anemia Lung nodule Nocturnal cough Hiatal hernia Infrarenal abdominal aortic aneurysm (AAA) without rupture (HCC) Acute CVA (cerebrovascular accident) (HCC) Moderate malnutrition (CMS/HCC) TIME IN: 1500 TIME OUT: 1545 SUBJECTIVE I am determined MENTAL STATUS/ORIENTATION: Alert and oriented x4 PAIN: Pre-therapy pain level: 0/10 Pain location: n/a Pain intervention: not needed Post-therapy pain level/response to intervention: 0/10 OBJECTIVE PRECAUTIONS: Unchanged from a.m APPEARANCE/POSTURE: Sitting in w/c with chair alarm in place, in no distress, on room air, family present, and pt pleasantly agreeable to therapy MOBILITY DOCUMENTATION: Bed Mobility: Max assist of 1 for sit to supine using rasheed technique Min assist of 1 for supine to sit (flat surface) Transfers: Mod assist of 1 for sit to and from stand w/ rasheed aide present upon standing. W/c to mat using slide board- Max assist of 1. Mat to w/c using slide board- Mod assist of 1 W/c to recliner via stand pivot- Max assist of 1 Ambulation: 7ft x 1 using rasheed aide- Mod assist of 1 + w/c follow for safety. L knee required blocking during stance phase to avoid buckling. Deviations unchanged from a.m. Min assist for L LE foot advancement Stairs: n/a Wheelchair management & propulsion: n/a TREATMENT: L LE supine ex's: hip ABD- min assist and SLR's- Max assist Supine peruvian ball bilat bridges and peruvian ball bilat knee to chest for 10 reps. Appearance/Posture at end of treatment session: Pt sitting in recliner w/ call light in reach, bilat LE's elevated, on room air, and pt in no distress EDUCATION: PATIENT/FAMILY EDUCATION: transfers, gait, endurance, safety, bed mobility, and LE strengthening exercises Response to Education: needs reinforcement and verbalizes understanding ASSESSMENT Activity tolerance/response to PT: Pt performed slide board training safely; min cueing for R hand placement. Pt confident ambulating with rasheed aide; limited in distance due to fatigue and L knee discomfort. Barriers to learning: Physical and Cognitive Barriers to discharge: Unchanged from a.m Patient continues progressing toward previously set goals which remain appropriate at this time. PLAN Patient to be seen bid 5x/week to address previously established deficits and goals. ER/WAITRESS [place] * Dwaine Kay NicholsonANGI - 12/18/2023 2:19 PM CST Occupational Therapy NOTE TYPE: OT TREATMENT ([facility] DEPARTMENT SESSION) PATIENT'S NAME: Gunjan Gtz Jr. AGE / SEX: 78 y.o. / male ROOM: [place] [id number] : 1945 DATE: 12/18/23 TIME IN: 9 TIME OUT: 1500 Patient Active Problem List Diagnosis Primary osteoarthritis of both knees Subchondral insufficiency fracture of condyle of left femur (CMS/HCC) (HCC) Closed fracture of left tibial plateau with delayed healing Closed fracture of right tibial plateau with delayed healing Closed nondisplaced osteochondral fracture of left patella with delayed healing Closed osteochondral fracture of patella, right, with delayed healing, subsequent encounter Complex tear of medial meniscus of right knee as current injury Complex tear of medial meniscus of left knee as current injury Goiter Breast pain, right Cataract of right eye Diplopia Esotropia Hypertropia of right eye Skin lesion of breast Edema Intermittent claudication (HCC) Iron deficiency anemia Peripheral vascular disease (HCC) Pain due to total right knee replacement (CMS/HCC) (HCC) Hamstring tendinitis of right thigh Quadriceps weakness Idiopathic peripheral neuropathy Abnormality of gait and mobility Hx of total knee replacement, right Neuropathy (CMS/HCC) 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 Biceps tendinitis of left upper extremity Tear of left glenoid labrum Coffee ground emesis Upper GI bleed Acquired hypothyroidism Acute blood loss anemia Lung nodule Nocturnal cough Hiatal hernia Infrarenal abdominal aortic aneurysm (AAA) without rupture (HCC) Acute CVA (cerebrovascular accident) (HCC) Moderate malnutrition (CMS/HCC) Past Medical History: Diagnosis Date Acute gastric [...] with delayed healing, subsequent encounter Clotting disorder (CMS/[facility]) ([facility]) Complex tear of medial meniscus of left knee as current injury Complex tear of medial meniscus of right knee as current injury Cramps of lower extremity Diverticulitis of colon Easy bruisability Fatigue Frequent urination Gastroesophageal reflux disease GERD Hypothyroidism Incontinence of urine Muscle weakness Osteoarthritis Osteoarthritis Peptic ulcer Peptic ulcer disease Seizures ([facility]) 1997 last seizure in 1997 SOB (shortness of breath) on exertion Subchondral insufficiency fracture of condyle of left femur (CMS/[facility]) ([facility]) Vertigo Vision changes Visual disturbance hx of double vision, corrective lenses Past Surgical History: Procedure Laterality Date CATARACT EXTRACTION, BILATERAL Bilateral 2018 HERNIA REPAIR 1979 Hiatal Hernia repair KNEE ARTHROSCOPY Bilateral THYROIDECTOMY 12/27/2019 PRECAUTIONS (INCLUDING WEIGHT-BEARING): Fall risk and Bed / chair alarm SUBJECTIVE: I guess I could try. (Using the bathroom) THERAPY PAIN: PRE-THERAPY PAIN LEVEL: 0 / 10 PAIN LOCATION: No pain - Location N/A PAIN INTERVENTION(S): No pain - Intervention N/A POST-THERAPY PAIN LEVEL: 0 / 10 PAIN SCALE USED: 0-10 SCALE OBJECTIVE: APPEARANCE: PRESENTATION UPON OT ARRIVAL: PATIENT Sitting in bedside recliner PRESENTATION UPON OT DEPARTURE: PATIENT Sitting in manual wheelchair with staff assistance BED / CHAIR ALARM IN PLACE AND ACTIVATED UPON OT DEPARTURE: Yes CALL LIGHT WITHIN ARMS REACH OF PATIENT AT END OF SESSION: No - due to patient taken to physical therapy gym COMPLETED PATIENT HANDOFF AND NOTIFIED Physical Therapist / Physical Therapist Human Resources Clerk, NAME: Jeffrey, OF PATIENT'S LOCATION AND FUNCTIONAL STATUS UPON COMPLETION OF SESSION UE THERAPEUTIC EXERCISES: PROM to LUE followed by scapular mobilization. Pt demonstrating trace movement in scapular elevation and horizontal ABD in gravity eliminated plane. MOBILITY: TOILET TRANSFER LOCATION: RAISED TOILET SEAT no ARMS OVERALL ASSIST LEVEL: MOD A DEVICE: GRAB BARS ADDITIONAL DOCUMENTATION: Pt transferred from wc to toilet with MOD A to R side: Heavy use of grab bar for pivot. Required verbal cues to advance feet and complete full pivot prior to sitting. TOILETING LOCATION: SITTING ON RAISED TOILET SEAT no ARMS TASKS COMPLETED: HYGIENE MANAGEMENT, CLOTHING MANAGEMENT PRE-TOILETING, and CLOTHING MANAGEMENT POST-TOILETING OVERALL ASSIST LEVEL: SUBSTANTIAL / MAXIMAL ASSISTANCE: MORE THAN HALF (50% - 99%) ADDITIONAL DOCUMENTATION: Pt able to stand with use of grab bar and MIN A while therapist doffed and donned garments. Pt urinated only. CAREGIVER PRESENT (YES / NO): Yes: spouse and daughter EDUCATION & TRAINING PROVIDED: ADL training, Compensatory ADL strategies, Functional transfer training, Balance training, Safety education, and UE home exercise program ASSESSMENT: ACTIVITY TOLERANCE / RESPONSE TO OT: GOOD PARTICIPATION, GOOD MOTIVATION, and RECEPTIVE TO EDUCATION / TRAINING PROGRESS TOWARDS GOALS: PLEASE REFER TO CARE PLAN FROM THIS DATE FOR PROGRESS TOWARDS INDIVIDUAL GOALS PLAN: PLEASE REFER TO MOST RECENT INPATIENT REHABILITATION TEAM CONFERENCE NOTE FOR DISCHARGE PLAN, INCLUDING LOCATION, RECOMMENDED LEVEL OF SUPERVISION AND ARRANGEMENTS. FREQUENCY OF THERAPY: BID SESSIONS 5 DAYS / WEEK TO ADDRESS PREVIOUSLY ESTABLISHED DEFICITS AND GOALS [place] 12/18/23 ER/WAITRESS CAFETERIA * Tyrel Vasquez, DIRECTOR OF RECRUITING - 12/18/2023 11:07 AM CST Physical Therapy PT PROGRESS NOTE Gunjan Gtz Jr. 78 y.o. 1945 Past Medical History: Diagnosis Date Acute gastric [...] with delayed healing, subsequent encounter Clotting disorder (CMS/[facility]) ([facility]) Complex tear of medial meniscus of left knee as current injury Complex tear of medial meniscus of right knee as current injury Cramps of lower extremity Diverticulitis of colon Easy bruisability Fatigue Frequent urination Gastroesophageal reflux disease GERD Hypothyroidism Incontinence of urine Muscle weakness Osteoarthritis Osteoarthritis Peptic ulcer Peptic ulcer disease Seizures (HCC) 1997 last seizure in 1997 SOB (shortness of breath) on exertion Subchondral insufficiency fracture of condyle of left femur (CMS/HCC) ([facility]) Vertigo Vision changes Visual disturbance hx of double vision, corrective lenses Past Surgical History: Procedure Laterality Date CATARACT EXTRACTION, BILATERAL Bilateral 2018 HERNIA REPAIR 1980 Hiatal Hernia repair KNEE ARTHROSCOPY Bilateral THYROIDECTOMY 12/27/2019 Patient Active Problem List Diagnosis Primary osteoarthritis of both knees Subchondral insufficiency fracture of condyle of left femur (CMS/HCC) ([facility]) Closed fracture of left tibial plateau with delayed healing Closed fracture of right tibial plateau with delayed healing Closed nondisplaced osteochondral fracture of left patella with delayed healing Closed osteochondral fracture of patella, right, with delayed healing, subsequent encounter Complex tear of medial meniscus of right knee as current injury Complex tear of medial meniscus of left knee as current injury Goiter Breast pain, right Cataract of right eye Diplopia Esotropia Hypertropia of right eye Skin lesion of breast Edema Intermittent claudication (HCC) Iron deficiency anemia Peripheral vascular disease (HCC) Pain due to total right knee replacement (CMS/HCC) (HCC) Hamstring tendinitis of right thigh Quadriceps weakness Idiopathic peripheral neuropathy Abnormality of gait and mobility Hx of total knee replacement, right Neuropathy (CMS/HCC) 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 Biceps tendinitis of left upper extremity Tear of left glenoid labrum Coffee ground emesis Upper GI bleed Acquired hypothyroidism Acute blood loss anemia Lung nodule Nocturnal cough Hiatal hernia Infrarenal abdominal aortic aneurysm (AAA) without rupture (HCC) Acute CVA (cerebrovascular accident) (HCC) Moderate malnutrition (CMS/HCC) TIME IN: 1105 TIME OUT: 1150 SUBJECTIVE I am doing okay. Just have a little R shoulder pain from using it this morning MENTAL STATUS/ORIENTATION: Alert and oriented x4 PAIN: Pre-therapy pain level: 10 Pain location: R shoulder Pain intervention: mobility Post-therapy pain level/response to intervention: 01/18 OBJECTIVE PRECAUTIONS: Fall risk APPEARANCE/POSTURE: Pt sitting in w/c with chair alarm in place, street shoes bilat, on room air, and pt pleasantly agreeable to therapy MOBILITY DOCUMENTATION: Bed Mobility: Not Tested Transfers: Mod assist of 1 for sit to and from stands using rasheed bar w/ R UE Mod assist of 1 for sit to and from stands w/ presence of rasheed aid W/c to recliner via stand pivot- Mod assist of 1 Ambulation: 6ft + 10ft using rasheed rail: mod assist of 1 for balance. Min to mod assist for L LE advancement. Mild knee buckling on L. Verbal/tactile cues for posture and sequencing. 5ft x 1 using rasheed aide + w/c follow for safety- Min to mod assist of 1 for balance. Mod to max assist for L LE advancement (pt reporting L LE fatigue at this point in therapy) Stairs: n/a Wheelchair management & propulsion: n/a TREATMENT: Standing L TKE w/ R UE supported on rasheed rail: Min assist of 1 for balance. 10 reps Standing weights shifts L and R at rasheed rail w/ R UE support. Min/mod assist of 1. Pt able to hold shift to L side for approximately 3 seconds each rep. 10 reps total Appearance/Posture at end of treatment session: Pt sitting in recliner w/ call light in reach, on room air, in no distress, and chair alarm activated EDUCATION: PATIENT/FAMILY EDUCATION: gait, safety, medical equipment (rasheed aide), balance training, standing mobility, and functional transfers Response to Education: needs reinforcement and verbalizes understanding ASSESSMENT Activity tolerance/response to PT: Pt put forth 100% effort during entire therapy session. No majorlosses of balance when ambulating at rasheed rail or w/ use of rasheed aide. Pt responded well with verbal and tactile cues for gait. Pain controlled in R shoulder despite frequent usage. Barriers to learning: Physical and Cognitive Barriers to discharge: Limited family support, No caregiver support, Confusion, Limited insight into deficits, Unrealistic expectations, Decreased endurance, Decreased proprioception, Upper extremityweakness, Lower extremity weakness, Incontinence of bladder, and Stairs at home Patient continues progressing toward previously set goals which remain appropriate at this time. PLAN Patient to be seen bid 5x/week to address previously established deficits and goals. ER/WAITRESS CAFETERIA * Dwaine Kay ANGI Nicholson - 12/18/2023 10:06 AM CST Occupational Therapy NOTE TYPE: OT TREATMENT ([facility] BEDSIDE SESSION) Patient's Name: Gunjan Gtz Jr. Age / Sex: 78 y.o. / male Room: [place] [id number] : 1945 Date: 12/18/23 Time In: 1006 Time Out: 1105 Patient Active Problem List Diagnosis Primary osteoarthritis of both knees Subchondral insufficiency fracture of condyle of left femur (CMS/HCC) (HCC) Closed fracture of left tibial plateau with delayed healing Closed fracture of right tibial plateau with delayed healing Closed nondisplaced osteochondral fracture of left patella with delayed healing Closed osteochondral fracture of patella, right, with delayed healing, subsequent encounter Complex tear of medial meniscus of right knee as current injury Complex tear of medial meniscus of left knee as current injury Goiter Breast pain, right Cataract of right eye Diplopia Esotropia Hypertropia of right eye Skin lesion of breast Edema Intermittent claudication ([facility]) Iron deficiency anemia Peripheral vascular disease (HCC) Pain due to total right knee replacement (CMS/HCC) ([facility]) Hamstring tendinitis of right thigh Quadriceps weakness Idiopathic peripheral neuropathy Abnormality of gait and mobility Hx of total knee replacement, right Neuropathy (CMS/HCC) 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 Biceps tendinitis of left upper extremity Tear of left glenoid labrum Coffee ground emesis Upper GI bleed Acquired hypothyroidism Acute blood loss anemia Lung nodule Nocturnal cough Hiatal hernia Infrarenal abdominal aortic aneurysm (AAA) without rupture ([facility]) Acute CVA (cerebrovascular accident) ([facility]) Moderate malnutrition (CMS/[facility]) Past Medical History: Diagnosis Date Acute gastric ulcer without hemorrhage or perforation Ulcer, gastric, acute - (Added by TW Conv) Alzheimer's dementia ([facility]) Asthma Back pain Cataract Closed fracture of left tibial plateau with delayed healing Closed fracture of right tibial plateau with delayed healing Closed nondisplaced osteochondral fracture of left patella with delayed healing Closed osteochondral fracture of patella, right, with delayed healing, subsequent encounter Clotting disorder (CMS/HCC) ([facility]) Complex tear of medial meniscus of left knee as current injury Complex tear of medial meniscus of right knee as current injury Cramps of lower extremity Diverticulitis of colon Easy bruisability Fatigue Frequent urination Gastroesophageal reflux disease GERD Hypothyroidism Incontinence of urine Muscle weakness Osteoarthritis Osteoarthritis Peptic ulcer Peptic ulcer disease Seizures ([facility]) 1997 last seizure in 1997 SOB (shortness of breath) on exertion Subchondral insufficiency fracture of condyle of left femur (CMS/HCC) ([facility]) Vertigo Vision changes Visual disturbance hx of double vision, corrective lenses Past Surgical History: Procedure Laterality Date CATARACT EXTRACTION, BILATERAL Bilateral 2018 HERNIA REPAIR 1979 Hiatal Hernia repair KNEE ARTHROSCOPY Bilateral THYROIDECTOMY 12/27/2019 Precautions (Including Weight-Bearing): Fall risk and Bed / chair alarm SUBJECTIVE: I need my hair product. Therapy Pain: Pre-therapy pain level: 0 / 10 Pain location: No pain - Location N/A Pain intervention(s): No pain - Intervention N/A Post-therapy pain level: 0 / 10 Pain scale used: 0-10 SCALE OBJECTIVE: APPEARANCE: Presentation upon OT arrival: Patient Sitting in bedside recliner Presentation upon OT departure: PATIENT Sitting in manual wheelchair with staff assistance Bed / chair alarm in place and activated upon OT departure: Yes Call light within arms reach of patient at end of session: No - due to patient taken to physical therapy gym Completed patient handoff and notified Physical Therapist / Physical Therapist Human Resources Clerk, name: Jeffrey, of patient's location and functional status upon completion of session. COGNITIVE / PERCEPTUAL: A O X 3; decreased insight, problem solving SELF CARE: Shower / Bathe Self Type of bathing: SPONGEBATHING Location of shower / bathe self: Sitting in manual wheelchair and Standing at grab bar Tasks completed: FACE, CHEST, ABDOMEN, RIGHT ARM, LEFT ARM, BLE THIGHS, PERINEAL AREA, and BUTTOCKS Components that required assistance (if applicable): MAX ASSIST RIGHT ARM and BUTTOCKS Overall assist level: MOD-MAX (did not address lower legs/feet) Adaptive equipment (if applicable): no assistive device Additional documentation: Pt needed cues to lift L arm up to sink and place hand in warm soapy water basin and then wash underarm. MAX assist to wash R arm. Sat in chair and completed frontal sandra area with verbal cue and set up. Pt stood with MIN A X 1 and heavy use of grab bar to pull up/steady self while therapist completed buttocks hygiene. Oral Hygiene Location of oral hygiene: Sitting in manual wheelchair Overall assist level: SUPERVISION ASSISTANCE / VERBAL CUES Additional documentation: Pt set up with toothpaste on brush and water in rinse cup. Other Grooming Tasks Location of other grooming tasks: Sitting in manual wheelchair Tasks completed: COMBING HAIR and APPLYING DEODORANT Overall assist level: PARTIAL / MODERATE ASSISTANCE: LESS THAN HALF (1% - 49%) Additional documentation: Pt needed assist to position L arm while he sprayed deodorant and was assisted with spraying under R arm. Combed hair with set up. UE Dressing Location of UE dressing: Sitting in manual wheelchair Tasks completed: long sleeve shirt Overall assist level: MOD A Additional documentation: Assisted with donning L arm in ling sleeved shirt. Dons shirt over head and R arm in sleeve. Verbal cues to get shirt over L shoulder and pull down, which he needed assist with in back. LE Dressing (Underwear / Pants) Location of LE dressing (Underwear / Pants): Sitting in manual wheelchair and Standing at grab bar Tasks completed: Elastic waist pants and Incontinence briefs as underwear Overall assist level: SUBSTANTIAL / MAXIMAL ASSISTANCE: MORE THAN HALF (50% - 99%) Additional documentation: Assist needed to don garments on L foot. Pt able to don brief and sweatpant on RLE while forward flexing in wc, requiring stabilization for safety when flexing forward. Stood with MIN A at bar while garments pulled up over waist for him. (MAX of 1 overall) Putting On / Taking Off Footwear Location of putting on / taking off footwear: Sitting in manual wheelchair Tasks completed: Sock(s) and Shoe(s) with laces Overall assist level: SUBSTANTIAL / MAXIMAL ASSISTANCE: MORE THAN HALF (50% - 99%) Additional documentation: N/A Toileting Pt with urinary urgency; incontinent of bladder MOBILITY: Transfers: Transferred from wc to recliner with MOD X 1 : pivot to R (strong) SIDE. HEARING / SPEECH / VISION: Expression of ideas and wants Overall assist level: WITHOUT DIFFICULTY Understanding verbal and non-verbal content Overall assist level: UNDERSTANDS Caregiver present (yes / no): Yes: SPOUSE BRIEFLY STOPPED IN TO DROP OFF PERSONAL ITEMS. Education & training provided: ADL training, Compensatory ADL strategies, Rasheed / One-handed techniques, Functional transfer training, Balance training, Safety education, and Cognitive re-orientation ASSESSMENT: Activity tolerance / response to OT: GOOD PARTICIPATION, GOOD MOTIVATION, and RECEPTIVE TO EDUCATION / TRAINING Progress towards goals: Please refer to Care Plan from this date for progress towards individual goals. PLAN: Therapy Plan: Please refer to most recent Inpatient Rehabilitation Team Conference note for discharge plan, including location, recommended level of supervision, and arrangements. Frequency of therapy: BID SESSIONS 5 DAYS / WEEK TO ADDRESS PREVIOUSLY ESTABLISHED DEFICITS AND GOALS ANGI Villa 12/18/23 ER/WAITRESS CAFETERIA * Madie Oneill PTA - 12/17/2023 4:12 PM CST Physical Therapy PT PROGRESS NOTE Gunjan Gtz Jr. 78 y.o. 1945 Past Medical History: Diagnosis Date Acute gastric [...] delayed healing, subsequent encounter Clotting disorder (CMS/HCC) (HCC) Complex tear of medial meniscus of left knee as current injury Complex tear of medial meniscus of right knee as current injury Cramps of lower extremity Diverticulitis of colon Easy bruisability Fatigue Frequent urination Gastroesophageal reflux disease GERD Hypothyroidism Incontinence of urine Muscle weakness Osteoarthritis Osteoarthritis Peptic ulcer Peptic ulcer disease Seizures (HCC) 1997 last seizure in 1997 SOB (shortness of breath) on exertion Subchondral insufficiency fracture of condyle of left femur (CMS/HCC) ([facility]) Vertigo Vision changes Visual disturbance hx of double vision, corrective lenses Past Surgical History: Procedure Laterality Date CATARACT EXTRACTION, BILATERAL Bilateral 2018 HERNIA REPAIR 1979 Hiatal Hernia repair KNEE ARTHROSCOPY Bilateral THYROIDECTOMY 12/27/2019 Patient Active Problem List Diagnosis Primary osteoarthritis of both knees Subchondral insufficiency fracture of condyle of left femur (CMS/HCC) ([facility]) Closed fracture of left tibial plateau with delayed healing Closed fracture of right tibial plateau with delayed healing Closed nondisplaced osteochondral fracture of left patella with delayed healing Closed osteochondral fracture of patella, right, with delayed healing, subsequent encounter Complex tear of medial meniscus of right knee as current injury Complex tear of medial meniscus of left knee as current injury Goiter Breast pain, right Cataract of right eye Diplopia Esotropia Hypertropia of right eye Skin lesion of breast Edema Intermittent claudication (HCC) Iron deficiency anemia Peripheral vascular disease (HCC) Pain due to total right knee replacement (CMS/HCC) ([facility]) Hamstring tendinitis of right thigh Quadriceps weakness Idiopathic peripheral neuropathy Abnormality of gait and mobility Hx of total knee replacement, right Neuropathy (CMS/HCC) 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 Biceps tendinitis of left upper extremity Tear of left glenoid labrum Coffee ground emesis Upper GI bleed Acquired hypothyroidism Acute blood loss anemia Lung nodule Nocturnal cough Hiatal hernia Infrarenal abdominal aortic aneurysm (AAA) without rupture (HCC) Acute CVA (cerebrovascular accident) ([facility]) Moderate malnutrition (CMS/HCC) TIME IN: 1435 TIME OUT: 1520 SUBJECTIVE What are we going to do? Patient is agreeable to therapy. MENTAL STATUS/ORIENTATION: Alert and oriented x4 PAIN: Pre-therapy pain level: 3/10 Pain location: R hip Pain intervention: mobility performed to tolerance Post-therapy pain level/response to intervention: no changes OBJECTIVE PRECAUTIONS: fall APPEARANCE/POSTURE: present in therapy gym, seated in w/c, chair alarm active, elevated arm trough MOBILITY DOCUMENTATION: Bed Mobility: supine <> sit with MOD assist. Patient can follow v/c for log rolling. Decreased ability to lift KATELIN LE onto bed surface, decreased strength to mobilize trunk. Transfers: sit <> stand from w/c and EOB with MOD assist. Standing trials x 2; each of 1 minute. Stand pivot transfers toward strong side with MAX assist x 1 with CG assist of another for safety this PM. Ambulation: NT Stairs: NA Wheelchair management & propulsion: NT TREATMENT: Supine HEP x 10 reps KATELIN: heel slides, hip ABD, SLR. MAX / TOTAL assist for performance on L LE. Patient does attempt to assist with gait belt. Rolling toward L side with MIN assist and v/c regarding log rolling. Appearance/Posture at end of treatment session: seated in recliner, call light in reach, chair alarm active. EDUCATION: PATIENT/FAMILY EDUCATION: supine HEP, transfer training Response to Education: needs reinforcement and verbalizes understanding ASSESSMENT Activity tolerance/response to PT: GOOD Patient cooperative with activities. Limited by strength, coordination deficits. Barriers to learning: no change from AM Barriers to discharge: no change from AM Patient continues progressing toward previously set goals which remain appropriate at this time. PLAN Patient to be seen bid 5x/week to address previously established deficits and goals. ER/WAITRESS CAFETERIA * Kay Isidro COTA - 12/17/2023 1:22 PM CST Occupational Therapy NOTE TYPE: OT TREATMENT ([facility] DEPARTMENT SESSION) PATIENT'S NAME: Gunjan Gtz Jr. AGE / SEX: 78 y.o. / male ROOM: [place] [id number] : 1945 DATE: 12/17/23 TIME IN: 1324 TIME OUT: 1413 Patient Active Problem List Diagnosis Primary osteoarthritis of both knees Subchondral insufficiency fracture of condyle of left femur (CMS/HCC) (HCC) Closed fracture of left tibial plateau with delayed healing Closed fracture of right tibial plateau with delayed healing Closed nondisplaced osteochondral fracture of left patella with delayed healing Closed osteochondral fracture of patella, right, with delayed healing, subsequent encounter Complex tear of medial meniscus of right knee as current injury Complex tear of medial meniscus of left knee as current injury Goiter Breast pain, right Cataract of right eye Diplopia Esotropia Hypertropia of right eye Skin lesion of breast Edema Intermittent claudication ([facility]) Iron deficiency anemia Peripheral vascular disease ([facility]) Pain due to total right knee replacement (CMS/HCC) ([facility]) Hamstring tendinitis of right thigh Quadriceps weakness Idiopathic peripheral neuropathy Abnormality of gait and mobility Hx of total knee replacement, right Neuropathy (CMS/HCC) 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 Biceps tendinitis of left upper extremity Tear of left glenoid labrum Coffee ground emesis Upper GI bleed Acquired hypothyroidism Acute blood loss anemia Lung nodule Nocturnal cough Hiatal hernia Infrarenal abdominal aortic aneurysm (AAA) without rupture ([facility]) Acute CVA (cerebrovascular accident) ([facility]) Moderate malnutrition ([facility]) Past Medical History: Diagnosis Date Acute gastric ulcer without hemorrhage or perforation Ulcer, gastric, acute - (Added by TW Conv) Alzheimer's dementia ([facility]) Asthma Back pain Cataract Closed fracture of left tibial plateau with delayed healing Closed fracture of right tibial plateau with delayed healing Closed nondisplaced osteochondral fracture of left patella with delayed healing Closed osteochondral fracture of patella, right, with delayed healing, subsequent encounter Clotting disorder (CMS/HCC) ([facility]) Complex tear of medial meniscus of left knee as current injury Complex tear of medial meniscus of right knee as current injury Cramps of lower extremity Diverticulitis of colon Easy bruisability Fatigue Frequent urination Gastroesophageal reflux disease GERD Hypothyroidism Incontinence of urine Muscle weakness Osteoarthritis Osteoarthritis Peptic ulcer Peptic ulcer disease Seizures ([facility]) 1997 last seizure in 1997 SOB (shortness of breath) on exertion Subchondral insufficiency fracture of condyle of left femur (CMS/HCC) ([facility]) Vertigo Vision changes Visual disturbance hx of double vision, corrective lenses Past Surgical History: Procedure Laterality Date CATARACT EXTRACTION, BILATERAL Bilateral 2018 HERNIA REPAIR 1980 Hiatal Hernia repair KNEE ARTHROSCOPY Bilateral THYROIDECTOMY 12/27/2019 PRECAUTIONS (INCLUDING WEIGHT-BEARING): Fall risk and Bed / chair alarm SUBJECTIVE: I'm just tired. My eyes close. THERAPY PAIN: PRE-THERAPY PAIN LEVEL: 7 / 10 PAIN LOCATION: R hip PAIN INTERVENTION(S): Pain medication administered during session POST-THERAPY PAIN LEVEL: 7 / 10 PAIN SCALE USED: 0-10 SCALE OBJECTIVE: APPEARANCE: PRESENTATION UPON OT ARRIVAL: PATIENT Sitting in bedside recliner PRESENTATION UPON OT DEPARTURE: PATIENT Sitting in manual wheelchair with staff assistance BED / CHAIR ALARM IN PLACE AND ACTIVATED UPON OT DEPARTURE: Yes CALL LIGHT WITHIN ARMS REACH OF PATIENT AT END OF SESSION: No - due to patient taken to physical therapy gym COMPLETED PATIENT HANDOFF AND NOTIFIED Physical Therapist / Physical Therapist Human Resources Clerk, NAME: Marcia, OF PATIENT'S LOCATION AND FUNCTIONAL STATUS UPON COMPLETION OF SESSION COGNITIVE / PERCEPTUAL: Oriented X 3 with decreased insight. UE THERAPEUTIC EXERCISES: PROM followed by scapular mobilization to LUE. Pt c/o pain near L axilla area when arm ranged past approx 100 degrees shoulder flex. Pt able to demonstrate trace movement with scapular elevation. No other AROM noted: Arm remains flaccid. MOBILITY: TRANSFERS: Pivot from recliner to wc (toward L/weaker side) with MOD A X 1 and MOD of another to pivot around. Pt had difficulty initiating L foot movement. ADDITIONAL ACTIVITIES/VISUAL PERCEPTUAL: Pt completed visual screening with 90% accuracy: Clock drawing with good number sequencing and spacing, but did not completely place numbers to edge of 'clock' on L side. Line dissection and copying drawing were completed with 100% accuracy. CAREGIVER PRESENT (YES / NO): No EDUCATION & TRAINING PROVIDED: Functional transfer training, Balance training, Safety education, UE home exercise program, and Visual / Perceptual skills ASSESSMENT: ACTIVITY TOLERANCE / RESPONSE TO OT: GOOD PARTICIPATION, RECEPTIVE TO EDUCATION / TRAINING, and FAIR TOLERANCE PROGRESS TOWARDS GOALS: PLEASE REFER TO CARE PLAN FROM THIS DATE FOR PROGRESS TOWARDS INDIVIDUAL GOALS PLAN: PLEASE REFER TO MOST RECENT INPATIENT REHABILITATION TEAM CONFERENCE NOTE FOR DISCHARGE PLAN, INCLUDING LOCATION, RECOMMENDED LEVEL OF SUPERVISION AND ARRANGEMENTS. FREQUENCY OF THERAPY: BID SESSIONS 5 DAYS / WEEK TO ADDRESS PREVIOUSLY ESTABLISHED DEFICITS AND GOALS ANGI Villa 12/17/23 ER/WAITRESS CAFETERIA * Paresh Prieto, NUMEROLOGIST - 12/17/2023 12:28 PM CST SPEECH LANGUAGE PATHOLOGY PROGRESS NOTE Patient's Name: Gunjan Gtz Jr. : 1945 Age: 78 y.o. Time In: 12:00 Time Out: 12:25 Patient Active Problem List Diagnosis Primary osteoarthritis of both knees Subchondral insufficiency fracture of condyle of left femur (CMS/HCC) ([facility]) Closed fracture of left tibial plateau with delayed healing Closed fracture of right tibial plateau with delayed healing Closed nondisplaced osteochondral fracture of left patella with delayed healing Closed osteochondral fracture of patella, right, with delayed healing, subsequent encounter Complex tear of medial meniscus of right knee as current injury Complex tear of medial meniscus of left knee as current injury Goiter Breast pain, right Cataract of right eye Diplopia Esotropia Hypertropia of right eye Skin lesion of breast Edema Intermittent claudication ([facility]) Iron deficiency anemia Peripheral vascular disease ([facility]) Pain due to total right knee replacement (CMS/HCC) ([facility]) Hamstring tendinitis of right thigh Quadriceps weakness Idiopathic peripheral neuropathy Abnormality of gait and mobility Hx of total knee replacement, right Neuropathy (CMS/HCC) 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 Biceps tendinitis of left upper extremity Tear of left glenoid labrum Coffee ground emesis Upper GI bleed Acquired hypothyroidism Acute blood loss anemia Lung nodule Nocturnal cough Hiatal hernia Infrarenal abdominal aortic aneurysm (AAA) without rupture ([facility]) Acute CVA (cerebrovascular accident) ([facility]) Moderate malnutrition (CMS/[facility]) Past Medical History: Diagnosis Date Acute gastric ulcer without hemorrhage or perforation Ulcer, gastric, acute - (Added by TW Conv) Alzheimer's dementia ([facility]) Asthma Back pain Cataract Closed fracture of left tibial plateau with delayed healing Closed fracture of right tibial plateau with delayed healing Closed nondisplaced osteochondral fracture of left patella with delayed healing Closed osteochondral fracture of patella, right, with delayed healing, subsequent encounter Clotting disorder (CMS/HCC) ([facility]) Complex tear of medial meniscus of left knee as current injury Complex tear of medial meniscus of right knee as current injury Cramps of lower extremity Diverticulitis of colon Easy bruisability Fatigue Frequent urination Gastroesophageal reflux disease GERD Hypothyroidism Incontinence of urine Muscle weakness Osteoarthritis Osteoarthritis Peptic ulcer Peptic ulcer disease Seizures ([facility]) 1997 last seizure in 1997 SOB (shortness of breath) on exertion Subchondral insufficiency fracture of condyle of left femur (CMS/HCC) ([facility]) Vertigo Vision changes Visual disturbance hx of double vision, corrective lenses Past Surgical History: Procedure Laterality Date CATARACT EXTRACTION, BILATERAL Bilateral 2018 HERNIA REPAIR 1980 Hiatal Hernia repair KNEE ARTHROSCOPY Bilateral THYROIDECTOMY 12/27/2019 SUBJECTIVE MENTAL STATUS: Awake and cooperative. PAIN: Pre Therapy Pain Level: 0/10 Pain Location: N/A Pain Intervention: N/A Post Therapy Pain Level/Response to Intervention: 0/10 OBJECTIVE PRECAUTIONS: Fall precautions SWALLOWING: Patient continues to tolerate regular consistency diet/thin liquids. Reports intermittent residue on left side of oral cavity. Uses finger sweep to clear. COGNITION: Cognitive deficits in short term memory and thought organization. COMMUNICATION: Dysarthric speech TREATMENT ACTIVITIES: Patient with regular consistency lunch and thin liquids. Minimal residue noted in left oral cavity.Able to clear with liquid wash or finger sweep. Patient able to take small sips of thin liquids via cup and straw with no overt signs of aspiration. EDUCATION: PATIENT/FAMILY EDUCATION: Reviewed swallowing guidelines with patient Response to Education: Understanding verbalized ASSESSMENT Activity Tolerance/Response to S.T.: Tolerated speech therapy session with no complaints Barriers to learning: Vision, Cognition, Communication Current status: Patient able to clear residue from left side with minimal verbal cues. Able to use liquid wash and finger sweep to clear. Progress toward goals: Patient continues to progress toward previously set goals which remain appropriate at this time. PLAN Multi-Disciplinary Problems (from Speech Therapy) Active Problems Problem: [facility] Start Date: 12/16/23 Goal Start Date Expected End Date End Date [facility] 1 12/16/23 12/23/23 -- Goal Details: Patient to perform short term memory tasks using compensatory strategies with 80% accuracy. Goal Start Date Expected End Date End Date [facility] 2 12/16/23 12/23/23 -- Goal Details: Patient to perform functional problem solving/reasoning tasks with 80% accuracy. Goal Start Date Expected End Date End Date [facility] 3 12/16/23 12/23/23 -- Goal Details: Patient to attend to left visual field 80% of the time given 2-3 verbal prompts. Goal Start Date Expected End Date End Date [facility] 4 12/16/23 12/23/23 -- Goal Details: Patient's speech to be 90% intelligible during conversational tasks utilizing compensatory strategies. Frequency of Treatment: BID, 5xs weekly Recommendations: Recommend home with 24 hour supervision at discharge with ongoing speech therapy services. If this is the last note, consider this the discharge summary. ER/WAITRESS CAFETERIA * Madie Oneill, DIRECTOR OF RECRUITING - 12/17/2023 12:27 PM CST Physical Therapy PT PROGRESS NOTE Gunjan Gtz 78 y.o. 1945 Past Medical History: Diagnosis Date Acute gastric ulcer without hemorrhage or perforation Ulcer, gastric, acute - (Added by TW Conv) Alzheimer's dementia ([facility]) Asthma Back pain Cataract Closed fracture of left tibial plateau with delayed healing Closed fracture of right tibial plateau with delayed healing Closed nondisplaced osteochondral fracture of left patella with delayed healing Closed osteochondral fracture of patella, right, with delayed healing, subsequent encounter Clotting disorder (CMS/HCC) ([facility]) Complex tear of medial meniscus of left knee as current injury Complex tear of medial meniscus of right knee as current injury Cramps of lower extremity Diverticulitis of colon Easy bruisability Fatigue Frequent urination Gastroesophageal reflux disease GERD Hypothyroidism Incontinence of urine Muscle weakness Osteoarthritis Osteoarthritis Peptic ulcer Peptic ulcer disease Seizures ([facility]) 1997 last seizure in 1997 SOB (shortness of breath) on exertion Subchondral insufficiency fracture of condyle of left femur (CMS/HCC) ([facility]) Vertigo Vision changes Visual disturbance hx of double vision, corrective lenses Past Surgical History: Procedure Laterality Date CATARACT EXTRACTION, BILATERAL Bilateral 2018 HERNIA REPAIR 1979 Hiatal Hernia repair KNEE ARTHROSCOPY Bilateral THYROIDECTOMY 12/27/2019 Patient Active Problem List Diagnosis Primary osteoarthritis of both knees Subchondral insufficiency fracture of condyle of left femur (CMS/HCC) ([facility]) Closed fracture of left tibial plateau with delayed healing Closed fracture of right tibial plateau with delayed healing Closed nondisplaced osteochondral fracture of left patella with delayed healing Closed osteochondral fracture of patella, right, with delayed healing, subsequent encounter Complex tear of medial meniscus of right knee as current injury Complex tear of medial meniscus of left knee as current injury Goiter Breast pain, right Cataract of right eye Diplopia Esotropia Hypertropia of right eye Skin lesion of breast Edema Intermittent claudication ([facility]) Iron deficiency anemia Peripheral vascular disease ([facility]) Pain due to total right knee replacement (CMS/HCC) (HCC) Hamstring tendinitis of right thigh Quadriceps weakness Idiopathic peripheral neuropathy Abnormality of gait and mobility Hx of total knee replacement, right Neuropathy (CMS/HCC) 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 Biceps tendinitis of left upper extremity Tear of left glenoid labrum Coffee ground emesis Upper GI bleed Acquired hypothyroidism Acute blood loss anemia Lung nodule Nocturnal cough Hiatal hernia Infrarenal abdominal aortic aneurysm (AAA) without rupture (HCC) Acute CVA (cerebrovascular accident) (HCC) Moderate malnutrition (CMS/HCC) TIME IN: 1105 TIME OUT: 1155 SUBJECTIVE Are we getting in that chair? Patient is eager to trial different W/C this date; patient's previous W/C was possible causing him KATELIN LE pain. MENTAL STATUS/ORIENTATION: Alert and oriented x 3; not fully oriented to situation / current physical status. PAIN: Pre-therapy pain level: None Pain location: na Pain intervention: na Post-therapy pain level/response to intervention: none OBJECTIVE PRECAUTIONS: fall APPEARANCE/POSTURE: present in room, seated in recliner, call light in reach, chair alarm active MOBILITY DOCUMENTATION: Bed Mobility: NT Transfers: sit <> stand at rasheed-bar with MOD assist and v/c regarding hand placement during return to seated. Stand pivot from recliner <> W/C toward strong side with MAX assist for balance, pivot Ambulation: 2' + 4' at rasheed-bar with MAX assist. Physical assist for balance, weight shifting, advancing L LE, postural cues. W/C follow. Stairs: NA Wheelchair management & propulsion: NT TREATMENT: Seated sheet pulls x 3 trials. 8' each trial. Trial one no weight, trials two and three with #5 weights. Patient used rasheed-technique. Appearance/Posture at end of treatment session: returned to room, seated in recliner, family friendpresent with fried chicken for lunch. Chair alarm active, call light in reach. EDUCATION: PATIENT/FAMILY EDUCATION: hand placement during standing, weightbearing and sequencing for gait. Response to Education: needs reinforcement ASSESSMENT Activity tolerance/response to PT: GOOD Patient requires MAX assist for mobility tasks. Significantly limited by stroke related deficits. Very pleasant and motivated. Barriers to learning: Physical and Cognitive Barriers to discharge: Limited family support, No caregiver support, Confusion, Limited insight into deficits, Unrealistic expectations, Decreased endurance, Decreased proprioception, Upper extremityweakness, Lower extremity weakness, Incontinence of bladder, and Stairs at home Patient continues progressing toward previously set goals which remain appropriate at this time. PLAN Patient to be seen bid 5x/week to address previously established deficits and goals. ER/WAITRESS CAFETERIA * Becky Montana MD - 12/17/2023 11:22 AM CST INPATIENT REHABILITATION DAILY PROGRESS NOTE CHIEF COMPLAINT: right posterior limb internal capsule infarct SUBJECTIVE: Therapy going well. No bm for a few days OBJECTIVE: VITALS: Vitals: 12/16/23 0827 12/16/23 1900 12/17/23 0647 12/17/23 0837 BP: 131/69 110/77 BP Location: Patient Position: Lying Sitting Pulse: 66 69 Resp: 18 18 Temp: 36.8 ??C (98.3 ??F) 36.5 ??C (97.7 ??F) TempSrc: Oral Oral SpO2: 96% 95% 93% 94% Weight: Height: PHYSICAL EXAM: General: no acute distress, in recliner HEENT: normocephalic, trachea midline Heart: rrr Lungs: ctab GI: soft, nontender Neuro: alert, awake LABS/RADIOLOGY/DIAGNOSTIC REVIEW Recent Labs Lab Units 12/16/23 0411 WBC K/cumm 9.2 HEMOGLOBIN g/dL 13.3 HEMATOCRIT % 40.3 PLATELETS K/cumm 259 Recent Labs Lab Units 12/16/23 0411 SODIUM mmol/L 138 POTASSIUM PLASMA mmol/L 4.3 CHLORIDE mmol/L 103 CO2 mmol/L 25 ANIONGAP mmol/L 10 GLUCOSE mg/dL 107 BUN SERUM mg/dL 22 CREATININE mg/dL 1.09 CALCIUM mg/dL 8.9 ALBUMIN g/dL 3.4* ALK PHOS Units/L 116 ALT Units/L 11 AST Units/L 16 BILIRUBIN TOTAL mg/dL 0.4 Recent Labs Lab Units 12/16/23 0411 12/14/23 0427 12/13/23 0252 12/12/23 0420 12/11/23 0547 GLUCOSE mg/dL 107 118 106 105 116 OT Functional Mobility: 12/15 Functional transfers: MAX-TOTAL OT Self Care: 12/15 Bathing: TOTAL Grooming: MAX UB dress:MAX LB dress: TOTAL Footwear: TOTAL Toileting:TOTAL PT Functional Mobility: eval: Bed Mobility: Sit to supine with mod assist of 1 for left LE and trunk, supine to sit with mod assist of 1 for left LE and trunk. Rolls left with min assist, rolls rightwith mod assist and cues to attend to left arm. Transfers: sit to/from stand with mod assist of 1, transfers w/c to/from bed going to the right with mod assist of 1. Max assist transferring to the left. Second person for safety for transfers Ambulation: 5' at rasheed bar , max assist of 1 with w/c follow. Patient requires assist for left LE advancement and stability, cues for weight shift, cues for posture, assist for trunk control. Stairs: unsafe Wheelchair management & propulsion: propels w/c 50' using rasheed technique and max assist of 1 No results found. MEDICATIONS: Current Facility-Administered Medications: acetaminophen (TYLENOL) tablet 650 mg, 650 mg, oral, Q6H PRN, Becky Montana MD, 650 mg at 12/16/23 0912 albuterol HFA (PROVENTIL HFA,VENTOLIN HFA,PROAIR HFA) 90 mcg/actuation inhaler 2 puff, 2 puff, inhalation, Q4H PRN (RT), Becky Montana MD aspirin chewable tablet 81 mg, 81 mg, oral, Daily, Becky Montana MD, 81 mg at 12/17/23 0838 calcium carbonate (TUMS) chewable tablet 1,000 mg, 400 mg of elemental calcium, oral, TID PRN, Becky Montana MD donepeziL (ARICEPT) tablet 10 mg, 10 mg, oral, Nightly, Becky Montana MD, 10 mg at 12/16/23 205 enoxaparin (LOVENOX) syringe 40 mg, 40 mg, subcutaneous, Daily-2100, Becky Rudd MD fluticasone furoate-vilanteroL (BREO ELLIPTA) 100-25 mcg/dose inhaler 1 puff, 1 puff, inhalation, Daily (RT), Becky Montana MD, 1 puff at 12/17/23 0837 gabapentin (NEURONTIN) capsule 300 mg, 300 mg, oral, TID, Becky Montana MD, 300 mg at 12/17/23 0838 levothyroxine (SYNTHROID) tablet 150 mcg, 150 mcg, oral, Daily - 0600, Becky Rudd MD, 150 mcg at 12/17/23 0631 ofloxacin (OCUFLOX) 0.3 % ophthalmic solution 1 drop, 1 drop, each eye, Daily PRN, eBcky Montana MD ondansetron (ZOFRAN) tablet 4 mg, 4 mg, oral, TID PRN, Becky Montana MD oxyCODONE (ROXICODONE) tablet 5 mg, 5 mg, oral, Q4H PRN, Becky Montana MD, 5 mg at 12/16/[address] (PROTONIX) extended release tablet 40 mg, 40 mg, oral, BID, Jl Montana MD, 40 mg at 12/17/23 08 polyethylene glycol (MIRALAX) packet 17 g, 17 g, oral, Daily, Becky Montana MD, 17 gat 12/17/23 08 ramelteon (ROZEREM) tablet 8 mg, 8 mg, oral, Nightly PRN, Becky Montana MD, 8 mg at 12/16/232052 rosuvastatin (CRESTOR) tablet 40 mg, 40 mg, oral, Daily, Becky Montana MD, 40 mg at 12/17/23 08 senna-docusate (PERICOLACE) 8.6-50 mg per tablet 1 tablet, 1 tablet, oral, BID PRN, Becky Montana MD simethicone (MYLICON) chewable tablet 80 mg, 80 mg, oral, TID PRN, Becky Rudd MD tamsulosin (FLOMAX) extended release capsule 0.4 mg, 0.4 mg, oral, Nightly, Jl Montana MD, 0.4 mg at 12/16/232052 tiZANidine (ZANAFLEX) tablet 2 mg, 2 mg, oral, TID PRN, Becky Montana MD, 2 mg at 12/17/23 0844 ASSESSMENT/PLAN: MEDICAL PLAN OF CARE: 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 Impaired mobility, ADLs, transfers, gait, balance, strength, endurance, speech, cognition, swallow PT OT eval NUMEROLOGIST eval Continue aspirin 81mg, rosuvastatin 40mg HTN: no current medications, monitor bp 12/15: controlled 12/16: controlled HLD: continue rosuvastatin 40mg AAA: no current medications Hypothyroidism: continue levothyroxine 150mcg GERD: continue pantoprazole 40mg bid Alzheimer: continue donepezil 10mg qhs Depression: no current medications Asthma: continue breo ellipta 100-25 daily BPH: continue flomax 0.4mg qhs Neuropathy: continue gabapentin 300mg tid Pain: Start Tylenol 650mg q6h prn, oxycodone 5mg q4h prn Bowels: Start miralax daily, pericolace bid prn, simethicone prn 12/16: dulcolax 10mg x1 Nausea: Start Zofran prn, Tums prn Diet: Reg/Thin HH 2G Na DVT ppx: restart lovenox Precautions: Fall Weightbearing status: full Code: Full Code Care discussed with Nursing Reviewed vital signs, intake, bowel, and bladder - as above REHAB PLAN OF CARE: Patient's expected intensity and duration of participation in the interdisciplinary rehabilitation program and disciplines that comprise this team: Therapies required to achieve goals:The patient will benefit from integrated coordination of care from the following interdisciplinary services: Medical Supervision, 24 hours Rehabilitation Nursing, Physical Therapy, Occupational Therapy, Case Management; Social Work; Therapeutic Recreation; SpeechTherapy; Flatwork Feeder Frequency and duration of therapies expect to be:Expected intensity and frequency of participation in the interdisciplinary rehab program is: 3 hours per day except Wednesday. Expected intensity and frequency of Physical Therapy (PT): 1.5 hours per day over 5-7 days for the duration of length of stay Expected intensity and frequency of Occupational Therapy (OT): 1.5 hours per day over 5-7 days per week for the duration of length of stay Expected intensity and frequency of Speech Therapy (NUMEROLOGIST): 1 hour per day per day over 5-7 days per week for the duration of length of stay FUNCTIONAL CHANGE: Spongebathing - dependent DISCHARGE PLANNING: Expected Discharge Date: TBD Equipment: TBD Family Training: SW to set up Education: Follow up Appointments: PCP 1-2 weeks Becky Montana MD Physical Medicine and Rehabilitation I can be reached from 7am-7pm through [email or web address] chat. Hospitalist forest fire prevention manager from 7pm-7am ER/WAITRESS CAFETERIA ER/WAITRESS CAFETERIA * Paresh Prieto, NUMEROLOGIST - 12/17/2023 10:02 AM CST SPEECH LANGUAGE PATHOLOGY PROGRESS NOTE Patient's Name: Gunjan Gtz Jr. : 1945 Age: 78 y.o. Time In: 9:20 Time Out: 9:50 Patient Active Problem List Diagnosis Primary osteoarthritis of both knees Subchondral insufficiency fracture of condyle of left femur (CMS/HCC) (HCC) Closed fracture of left tibial plateau with delayed healing Closed fracture of right tibial plateau with delayed healing Closed nondisplaced osteochondral fracture of left patella with delayed healing Closed osteochondral fracture of patella, right, with delayed healing, subsequent encounter Complex tear of medial meniscus of right knee as current injury Complex tear of medial meniscus of left knee as current injury Goiter Breast pain, right Cataract of right eye Diplopia Esotropia Hypertropia of right eye Skin lesion of breast Edema Intermittent claudication (HCC) Iron deficiency anemia Peripheral vascular disease (HCC) Pain due to total right knee replacement (CMS/HCC) (HCC) Hamstring tendinitis of right thigh Quadriceps weakness Idiopathic peripheral neuropathy Abnormality of gait and mobility Hx of total knee replacement, right Neuropathy (CMS/HCC) 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 Biceps tendinitis of left upper extremity Tear of left glenoid labrum Coffee ground emesis Upper GI bleed Acquired hypothyroidism Acute blood loss anemia Lung nodule Nocturnal cough Hiatal hernia Infrarenal abdominal aortic aneurysm (AAA) without rupture ([facility]) Acute CVA (cerebrovascular accident) ([facility]) Moderate malnutrition (CMS/HCC) Past Medical History: Diagnosis Date Acute gastric ulcer without hemorrhage or perforation Ulcer, gastric, acute - (Added by TW Conv) Alzheimer's dementia ([facility]) Asthma Back pain Cataract Closed fracture of left tibial plateau with delayed healing Closed fracture of right tibial plateau with delayed healing Closed nondisplaced osteochondral fracture of left patella with delayed healing Closed osteochondral fracture of patella, right, with delayed healing, subsequent encounter Clotting disorder (CMS/HCC) ([facility]) Complex tear of medial meniscus of left knee as current injury Complex tear of medial meniscus of right knee as current injury Cramps of lower extremity Diverticulitis of colon Easy bruisability Fatigue Frequent urination Gastroesophageal reflux disease GERD Hypothyroidism Incontinence of urine Muscle weakness Osteoarthritis Osteoarthritis Peptic ulcer Peptic ulcer disease Seizures ([facility]) 1997 last seizure in 1997 SOB (shortness of breath) on exertion Subchondral insufficiency fracture of condyle of left femur (CMS/HCC) ([facility]) Vertigo Vision changes Visual disturbance hx of double vision, corrective lenses Past Surgical History: Procedure Laterality Date CATARACT EXTRACTION, BILATERAL Bilateral 2018 HERNIA REPAIR 1979 Hiatal Hernia repair KNEE ARTHROSCOPY Bilateral THYROIDECTOMY 12/27/2019 SUBJECTIVE MENTAL STATUS: Patient sitting upright 90 degrees in recliner. Reports feeling tired. PAIN: Pre Therapy Pain Level: 0/10 Pain Location: N/A Pain Intervention: N/A Post Therapy Pain Level/Response to Intervention: 0/10 OBJECTIVE PRECAUTIONS: Fall precautions SWALLOWING: Patient continues to tolerate regular consistency diet/thin liquids. Reports intermittent residue on left side of oral cavity. Uses finger sweep to clear. COGNITION: Cognitive deficits in short term memory and thought organization. COMMUNICATION: Dysarthric speech TREATMENT ACTIVITIES: Elicit spontaneous sentences with 70% intelligibility independently and 80% with verbal cues. Patient fatigued this morning and fatigue decreases intelligibility. Oral motor exercises 10xs each Recall daily activities/recent events with 80% accuracy Insight into deficits with 80% accuracy. EDUCATION: PATIENT/FAMILY EDUCATION: Discussed speech therapy assisting with strategies to clear residue during next session. Response to Education: Understanding verbalized ASSESSMENT Activity Tolerance/Response to S.T.: Tolerated speech therapy session with no complaints Barriers to learning: Communication, Cognition, Vision Current status: Patient with mild/moderate dysarthric speech. Improvement noted with secretion management with less anterior spillage noted. Increased insight into deficits. Progress toward goals: Patient continues to progress toward previously set goals which remain appropriate at this time. PLAN Multi-Disciplinary Problems (from Speech Therapy) Active Problems Problem: [place]OLOG[place] [facility] [place]: 12/16/23 Goal Start Date Expected End Date End Date [facility] [place]16[place]23 12/23/23 -- Goal Details: Patient to perform short term memory tasks using compensatory strategies with 80% accuracy. Goal Start Date Expected End Date End Date [facility] [place] 12/16/23 12/23/23 -- Goal Details: Patient to perform functional problem solving/reasoning tasks with 80% accuracy. Goal Start Date Expected End Date End Date [facility] [place] 12/16/23 12/23/23 -- Goal Details: Patient to attend to left visual field 80% of the time given 2-3 verbal prompts. Goal Start Date Expected End Date End Date [facility] 4 12/16/23 12/23/23 -- Goal Details: Patient's speech to be 90% intelligible during conversational tasks utilizing compensatory strategies. Frequency of Treatment: BID, 5xs weekly Recommendations: Recommend home with 24 hour supervision at discharge. If this is the last note, consider this the discharge summary. ER/WAITRESS CAFETERIA * Kay Isidro COTA - 12/17/2023 7:20 AM CST Occupational Therapy NOTE TYPE: OT TREATMENT ([facility] BEDSIDE SESSION) Patient's Name: Gunjan Gtz JrMason Age / Sex: 78 y.o. / male Room: [place] [id number] : 1945 Date: 12/17/23 Time In: 720 Time Out: 835 Patient Active Problem List Diagnosis Primary osteoarthritis of both knees Subchondral insufficiency fracture of condyle of left femur (CMS/HCC) ([facility]) Closed fracture of left tibial plateau with delayed healing Closed fracture of right tibial plateau with delayed healing Closed nondisplaced osteochondral fracture of left patella with delayed healing Closed osteochondral fracture of patella, right, with delayed healing, subsequent encounter Complex tear of medial meniscus of right knee as current injury Complex tear of medial meniscus of left knee as current injury Goiter Breast pain, right Cataract of right eye Diplopia Esotropia Hypertropia of right eye Skin lesion of breast Edema Intermittent claudication ([facility]) Iron deficiency anemia Peripheral vascular disease ([facility]) Pain due to total right knee replacement (CMS/HCC) ([facility]) Hamstring tendinitis of right thigh Quadriceps weakness Idiopathic peripheral neuropathy Abnormality of gait and mobility Hx of total knee replacement, right Neuropathy (CMS/HCC) 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 Biceps tendinitis of left upper extremity Tear of left glenoid labrum Coffee ground emesis Upper GI bleed Acquired hypothyroidism Acute blood loss anemia Lung nodule Nocturnal cough Hiatal hernia Infrarenal abdominal aortic aneurysm (AAA) without rupture ([facility]) Acute CVA (cerebrovascular accident) ([facility]) Past Medical History: Diagnosis Date Acute gastric ulcer without hemorrhage or perforation Ulcer, gastric, acute - (Added by TW Conv) Alzheimer's dementia ([facility]) Asthma Back pain Cataract Closed fracture of left tibial plateau with delayed healing Closed fracture of right tibial plateau with delayed healing Closed nondisplaced osteochondral fracture of left patella with delayed healing Closed osteochondral fracture of patella, right, with delayed healing, subsequent encounter Clotting disorder ([facility]) ([facility]) Complex tear of medial meniscus of left knee as current injury Complex tear of medial meniscus of right knee as current injury Cramps of lower extremity Diverticulitis of colon Easy bruisability Fatigue Frequent urination Gastroesophageal reflux disease GERD Hypothyroidism Incontinence of urine Muscle weakness Osteoarthritis Osteoarthritis Peptic ulcer Peptic ulcer disease Seizures ([facility]) 1997 last seizure in 1997 SOB (shortness of breath) on exertion Subchondral insufficiency fracture of condyle of left femur ([facility]) ([facility]) Vertigo Vision changes Visual disturbance hx of double vision, corrective lenses Past Surgical History: Procedure Laterality Date CATARACT EXTRACTION, BILATERAL Bilateral 2018 HERNIA REPAIR 1979 Hiatal Hernia repair KNEE ARTHROSCOPY Bilateral THYROIDECTOMY 12/27/2019 Precautions (Including Weight-Bearing): Fall risk and Bed / chair alarm SUBJECTIVE: Pt requires assist for cutting up food and opening containers. I need the urinal. Too late, I went already. Pt issued L rasheed sling for L arm when transferring. Wc switched out due to pt's c/o pain in shoulders from wc canes in back. Therapy Pain: Pre-therapy pain level: 0 / 10 Pain location: No pain - Location N/A Pain intervention(s): No pain - Intervention N/A Post-therapy pain level: 0 / 10 Pain scale used: 0-10 SCALE OBJECTIVE: APPEARANCE: Presentation upon OT arrival: Patient Sitting in manual wheelchair in recreational day room Presentation upon OT departure: PATIENT Sitting in bedside recliner Bed / chair alarm in place and activated upon OT departure: Yes Call light within arms reach of patient at end of session: Yes Completed patient handoff and notified SEO TEAM LEAD / RN, name: Gela, of patient's location and functional status upon completion of session. COGNITIVE / PERCEPTUAL: A O X 3; decreased insight, problem solving SELF CARE: Shower / Bathe Self Type of bathing: SPONGEBATHING Location of shower / bathe self: Sitting in manual wheelchair and Standing at grab bar Tasks completed: FACE, CHEST, ABDOMEN, RIGHT ARM, LEFT ARM, PERINEAL AREA, and BUTTOCKS Components that required assistance (if applicable): MAX ASSIST RIGHT ARM and DEPENDENT ASSIST BUTTOCKS Overall assist level: TOTAL / DEPENDENT ASSISTANCE (100% / TWO OR MORE HELPERS) Adaptive equipment (if applicable): no assistive device Additional documentation: Pt needed cues to lift L arm up to sink and place hand in warm soapy water basin and then wash underarm. MAX assist to wash R arm. Sat in chair and completed frontal sandra area with verbal cue and set up. Pt stood with MOD A X 1 and assist of another to wash buttocks while standing with assist of grab bar. Oral Hygiene Location of oral hygiene: Sitting in manual wheelchair Overall assist level: SUPERVISION ASSISTANCE / VERBAL CUES Additional documentation: Pt attempted to put toothpaste on brush but over-shot. Needed toothbrush brought up to paste. Brushed and rinsed with set up at sink. Other Grooming Tasks Location of other grooming tasks: Sitting in manual wheelchair Tasks completed: COMBING HAIR and APPLYING DEODORANT Overall assist level: PARTIAL / MODERATE ASSISTANCE: LESS THAN HALF (1% - 49%) Additional documentation: Pt needed assist to position L arm while he sprayed deodorant and assist to spray under R arm. Combed hair with set up. UE Dressing Location of UE dressing: Sitting in manual wheelchair Tasks completed: t-shirt and Pullover shirt Overall assist level: SUBSTANTIAL / MAXIMAL ASSISTANCE: MORE THAN HALF (50% - 99%) Additional documentation: Donned t-shirt with MOD A and sweatshirt with MAX A. LE Dressing (Underwear / Pants) Location of LE dressing (Underwear / Pants): Sitting in manual wheelchair and Standing at grab bbar Tasks completed: Elastic waist pants and Incontinence briefs as underwear Overall assist level: SUBSTANTIAL / MAXIMAL ASSISTANCE: MORE THAN HALF (50% - 99%) Additional documentation: Pt able to don sweatpants on RLE while forward flexing in wc, Requiring stabilization for safety when flexing forward. Stood with MOD A at bar while garments pulled up over waist for him. (MAX of 1 overall) Putting On / Taking Off Footwear Location of putting on / taking off footwear: Sitting in manual wheelchair Tasks completed: Sock(s) and Shoe(s) with laces Overall assist level: SUBSTANTIAL / MAXIMAL ASSISTANCE: MORE THAN HALF (50% - 99%) Additional documentation: N/A Toileting Pt with urinary urgency; incontinent of bladder MOBILITY: Transfers: Transferred from wc to recliner with MOD X 1 and MIN X 1: pivot to R (strong) SIDE. HEARING / SPEECH / VISION: Expression of ideas and wants Overall assist level: WITHOUT DIFFICULTY Understanding verbal and non-verbal content Overall assist level: UNDERSTANDS Caregiver present (yes / no): Yes: SPOUSE BRIEFLY STOPPED IN TO DROP OFF PERSONAL ITEMS. Education & training provided: ADL training, Compensatory ADL strategies, Rasheed / One-handed techniques, Functional transfer training, Balance training, Safety education, and Cognitive re-orientation ASSESSMENT: Activity tolerance / response to OT: GOOD PARTICIPATION, GOOD MOTIVATION, and RECEPTIVE TO EDUCATION / TRAINING Progress towards goals: Please refer to Care Plan from this date for progress towards individual goals. PLAN: Therapy Plan: Please refer to most recent Inpatient Rehabilitation Team Conference note for discharge plan, including location, recommended level of supervision, and arrangements. Frequency of therapy: BID SESSIONS 5 DAYS / WEEK TO ADDRESS PREVIOUSLY ESTABLISHED DEFICITS AND GOALS ANGI Villa 12/17/23 ER/WAITRESS CAFETERIA * Madie Oneill PTA - 12/16/2023 2:42 PM CST Physical Therapy PT PROGRESS NOTE Gunjan Gtz Jr. 78 y.o. 1945 Past Medical History: Diagnosis Date Acute gastric ulcer without hemorrhage or perforation Ulcer, gastric, acute - (Added by TW Conv) Alzheimer's dementia ([facility]) Asthma Back pain Cataract Closed fracture of left tibial plateau with delayed healing Closed fracture of right tibial plateau with delayed healing Closed nondisplaced osteochondral fracture of left patella with delayed healing Closed osteochondral fracture of patella, right, with delayed healing, subsequent encounter Clotting disorder (CMS/HCC) ([facility]) Complex tear of medial meniscus of left knee as current injury Complex tear of medial meniscus of right knee as current injury Cramps of lower extremity Diverticulitis of colon Easy bruisability Fatigue Frequent urination Gastroesophageal reflux disease GERD Hypothyroidism Incontinence of urine Muscle weakness Osteoarthritis Osteoarthritis Peptic ulcer Peptic ulcer disease Seizures ([facility]) 1997 last seizure in 1997 SOB (shortness of breath) on exertion Subchondral insufficiency fracture of condyle of left femur (CMS/HCC) ([facility]) Vertigo Vision changes Visual disturbance hx of double vision, corrective lenses Past Surgical History: Procedure Laterality Date CATARACT EXTRACTION, BILATERAL Bilateral 2018 HERNIA REPAIR 1979 Hiatal Hernia repair KNEE ARTHROSCOPY Bilateral THYROIDECTOMY 12/27/2019 Patient Active Problem List Diagnosis Primary osteoarthritis of both knees Subchondral insufficiency fracture of condyle of left femur (CMS/HCC) ([facility]) Closed fracture of left tibial plateau with delayed healing Closed fracture of right tibial plateau with delayed healing Closed nondisplaced osteochondral fracture of left patella with delayed healing Closed osteochondral fracture of patella, right, with delayed healing, subsequent encounter Complex tear of medial meniscus of right knee as current injury Complex tear of medial meniscus of left knee as current injury Goiter Breast pain, right Cataract of right eye Diplopia Esotropia Hypertropia of right eye Skin lesion of breast Edema Intermittent claudication ([facility]) Iron deficiency anemia Peripheral vascular disease ([facility]) Pain due to total right knee replacement (CMS/HCC) ([facility]) Hamstring tendinitis of right thigh Quadriceps weakness Idiopathic peripheral neuropathy Abnormality of gait and mobility Hx of total knee replacement, right Neuropathy (CMS/HCC) 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 Biceps tendinitis of left upper extremity Tear of left glenoid labrum Coffee ground emesis Upper GI bleed Acquired hypothyroidism Acute blood loss anemia Lung nodule Nocturnal cough Hiatal hernia Infrarenal abdominal aortic aneurysm (AAA) without rupture ([facility]) Acute CVA (cerebrovascular accident) ([facility]) TIME IN: 235 TIME OUT: 325 SUBJECTIVE My arm is hurting. Patient is agreeable to therapy. MENTAL STATUS/ORIENTATION: Alert and oriented x4 PAIN: Pre-therapy pain level: 9/10 Pain location: KATELIN UE and LE; describes as tingling Pain intervention: mobility as tolerated Post-therapy pain level/response to intervention: 01/18 OBJECTIVE PRECAUTIONS: fall APPEARANCE/POSTURE: present in therapy gym, seated in w/c, chair alarm active. Prior to therapist arrival, patient is reported to be calling out due to pain in R UE and LE MOBILITY DOCUMENTATION: Bed Mobility: MOD assist x 1 + CG assist x 1 Transfers: sit <> stand from w/c to rasheed-bar with MOD assist Stand pivot transfer from w/c to EOB with MOD assist x 2. Patient anxious regarding need to use urinal. Ambulation: 5' rasheed-bar with w/c follow. MAX assist for balance, posture, weight shifting and to advance R LE Stairs: NT Wheelchair management & propulsion: 15' forward with rasheed-technique, extra time to perform withMIN assist. TREATMENT: Passive ROM while seated to L LE for LAQ and hip ABD x 10 reps. Patient reports reduced pain response. Appearance/Posture at end of treatment session: supine, present with PCT, patient incontinent of bladder due to length of time occurred for additional staff to arrive. EDUCATION: PATIENT/FAMILY EDUCATION: gait sequencing, transfers, safety Response to Education: needs reinforcement and verbalizes understanding ASSESSMENT Activity tolerance/response to PT: GOOD Patient is motivated, limited strength, decreased activity tolerance. Barriers to learning: Physical Barriers to discharge: Pain, Limited family support, Decreased endurance, Decreased proprioception,Upper extremity weakness, Lower extremity weakness, and Stairs at home Patient continues progressing toward previously set goals which remain appropriate at this time. PLAN Patient to be seen bid 5x/week to address previously established deficits and goals. ER/WAITRESS CAFETERIA * Paresh Prieto, NUMEROLOGIST - 12/16/2023 1:52 PM CST SPEECH LANGUAGE PATHOLOGY PROGRESS NOTE Patient's Name: Gunjan Gtz Jr. : 1945 Age: 78 y.o. Time In: 13:03 Time Out: 13:30 Patient Active Problem List Diagnosis Primary osteoarthritis of both knees Subchondral insufficiency fracture of condyle of left femur (CMS/HCC) (HCC) Closed fracture of left tibial plateau with delayed healing Closed fracture of right tibial plateau with delayed healing Closed nondisplaced osteochondral fracture of left patella with delayed healing Closed osteochondral fracture of patella, right, with delayed healing, subsequent encounter Complex tear of medial meniscus of right knee as current injury Complex tear of medial meniscus of left knee as current injury Goiter Breast pain, right Cataract of right eye Diplopia Esotropia Hypertropia of right eye Skin lesion of breast Edema Intermittent claudication ([facility]) Iron deficiency anemia Peripheral vascular disease ([facility]) Pain due to total right knee replacement ([facility]) ([facility]) Hamstring tendinitis of right thigh Quadriceps weakness Idiopathic peripheral neuropathy Abnormality of gait and mobility Hx of total knee replacement, right Neuropathy (CMS/[facility]) 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 Biceps tendinitis of left upper extremity Tear of left glenoid labrum Coffee ground emesis Upper GI bleed Acquired hypothyroidism Acute blood loss anemia Lung nodule Nocturnal cough Hiatal hernia Infrarenal abdominal aortic aneurysm (AAA) without rupture ([facility]) Acute CVA (cerebrovascular accident) ([facility]) Past Medical History: Diagnosis Date Acute gastric ulcer without hemorrhage or perforation Ulcer, gastric, acute - (Added by TW Conv) Alzheimer's dementia ([facility]) Asthma Back pain Cataract Closed fracture of left tibial plateau with delayed healing Closed fracture of right tibial plateau with delayed healing Closed nondisplaced osteochondral fracture of left patella with delayed healing Closed osteochondral fracture of patella, right, with delayed healing, subsequent encounter Clotting disorder ([facility]) ([facility]) Complex tear of medial meniscus of left knee as current injury Complex tear of medial meniscus of right knee as current injury Cramps of lower extremity Diverticulitis of colon Easy bruisability Fatigue Frequent urination Gastroesophageal reflux disease GERD Hypothyroidism Incontinence of urine Muscle weakness Osteoarthritis Osteoarthritis Peptic ulcer Peptic ulcer disease Seizures ([facility]) 1997 last seizure in 1997 SOB (shortness of breath) on exertion Subchondral insufficiency fracture of condyle of left femur ([facility]) ([facility]) Vertigo Vision changes Visual disturbance hx of double vision, corrective lenses Past Surgical History: Procedure Laterality Date CATARACT EXTRACTION, BILATERAL Bilateral 2018 HERNIA REPAIR 1979 Hiatal Hernia repair KNEE ARTHROSCOPY Bilateral THYROIDECTOMY 12/27/2019 SUBJECTIVE MENTAL STATUS: Patient awake and cooperative, resting in wheelchair. Reports feeling tired. PAIN: Pre Therapy Pain Level: 0/10 Pain Location: N/A Pain Intervention: N/A Post Therapy Pain Level/Response to Intervention: 0/10 OBJECTIVE PRECAUTIONS: Fall precautions SWALLOWING: Swallow assessed by NUMEROLOGIST. Regular consistency diet/thin liquids recommended. Patient's reports patient having difficulty with food getting stuck on left side of mouth. COMBATANT SWIMMER changed dietto mechanical soft/thin liquids. Patient with decreased appetite and diet advanced to regular consistency. Patient appears to be tolerating regular diet with no overt signs of aspiration. COGNITION: Cognitive deficits in short term memory with left visual field inattention. COMMUNICATION: Mild dysarthric speech TREATMENT ACTIVITIES: RIPA-2 initiated. Thought organization with 60% and auditory processing with 90%. Recall daily activities/recent events with 100% accuracy EDUCATION: PATIENT/FAMILY EDUCATION: Reviewed therapy schedule with patient Response to Education: Verbalized understanding ASSESSMENT Activity Tolerance/Response to S.T.: Tolerated speech therapy session with no complaints Barriers to learning: Vision, Cognition Current status: Patient with moderate decrease with thought organization. Progress toward goals: Patient continues to progress toward previously set goals which remain appropriate at this time. PLAN Multi-Disciplinary Problems (from Speech Therapy) Active Problems Problem: [place]OLOG[place] [facility] [place]: 12/16/23 Goal Start Date Expected End Date End Date [facility] 1 12/16/23 12/23/23 -- Goal Details: Patient to perform short term memory tasks using compensatory strategies with 80% accuracy. Goal Start Date Expected End Date End Date [facility] 2 12/16/23 12/23/23 -- Goal Details: Patient to perform functional problem solving/reasoning tasks with 80% accuracy. Goal Start Date Expected End Date End Date [facility] 3 12/16/23 12/23/23 -- Goal Details: Patient to attend to left visual field 80% of the time given 2-3 verbal prompts. Goal Start Date Expected End Date End Date [facility] 4 12/16/23 12/23/23 -- Goal Details: Patient's speech to be 90% intelligible during conversational tasks utilizing compensatory strategies. Frequency of Treatment: BID, 5xs weekly Recommendations: Recommend home with 24 hour supervision at discharge. If this is the last note, consider this the discharge summary. ER/WAITRESS CAFETERIA * Rosalia Marinelli, OT - 12/16/2023 1:43 PM CST Occupational Therapy NOTE / SESSION TYPE: OT EVALUATION (COMPLETION) PATIENT'S NAME: Gunjan Gtz Jr. AGE / SEX: 78 y.o. / male ROOM: [place] [id number] : 1945 DATE: 12/16/23 TIME IN: 1343 TIME OUT: 1413 Patient Active Problem List Diagnosis Primary osteoarthritis of both knees Subchondral insufficiency fracture of condyle of left femur (CMS/HCC) ([facility]) Closed fracture of left tibial plateau with delayed healing Closed fracture of right tibial plateau with delayed healing Closed nondisplaced osteochondral fracture of left patella with delayed healing Closed osteochondral fracture of patella, right, with delayed healing, subsequent encounter Complex tear of medial meniscus of right knee as current injury Complex tear of medial meniscus of left knee as current injury Goiter Breast pain, right Cataract of right eye Diplopia Esotropia Hypertropia of right eye Skin lesion of breast Edema Intermittent claudication ([facility]) Iron deficiency anemia Peripheral vascular disease ([facility]) Pain due to total right knee replacement (CMS/HCC) ([facility]) Hamstring tendinitis of right thigh Quadriceps weakness Idiopathic peripheral neuropathy Abnormality of gait and mobility Hx of total knee replacement, right Neuropathy (CMS/HCC) 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 Biceps tendinitis of left upper extremity Tear of left glenoid labrum Coffee ground emesis Upper GI bleed Acquired hypothyroidism Acute blood loss anemia Lung nodule Nocturnal cough Hiatal hernia Infrarenal abdominal aortic aneurysm (AAA) without rupture ([facility]) Acute CVA (cerebrovascular accident) ([facility]) Past Medical History: Diagnosis Date Acute gastric ulcer without hemorrhage or perforation Ulcer, gastric, acute - (Added by TW Conv) Alzheimer's dementia ([facility]) Asthma Back pain Cataract Closed fracture of left tibial plateau with delayed healing Closed fracture of right tibial plateau with delayed healing Closed nondisplaced osteochondral fracture of left patella with delayed healing Closed osteochondral fracture of patella, right, with delayed healing, subsequent encounter Clotting disorder (CMS/HCC) ([facility]) Complex tear of medial meniscus of left knee as current injury Complex tear of medial meniscus of right knee as current injury Cramps of lower extremity Diverticulitis of colon Easy bruisability Fatigue Frequent urination Gastroesophageal reflux disease GERD Hypothyroidism Incontinence of urine Muscle weakness Osteoarthritis Osteoarthritis Peptic ulcer Peptic ulcer disease Seizures (HCC) 1997 last seizure in 1997 SOB (shortness of breath) on exertion Subchondral insufficiency fracture of condyle of left femur (CMS/HCC) (HCC) Vertigo Vision changes Visual disturbance hx of double vision, corrective lenses Past Surgical History: Procedure Laterality Date CATARACT EXTRACTION, BILATERAL Bilateral 2018 HERNIA REPAIR 1979 Hiatal Hernia repair KNEE ARTHROSCOPY Bilateral THYROIDECTOMY 12/27/2019 PRECAUTIONS (INCLUDING WEIGHT-BEARING): Fall risk and Bed / chair alarm SUBJECTIVE: My arm is cramping THERAPY PAIN: PRE-THERAPY PAIN LEVEL: 0 /10 PAIN LOCATION: RUE due to cramping PAIN INTERVENTION(S): Repositioned and RN Notified POST-THERAPY PAIN LEVEL: 9 /10 PAIN SCALE USED: 0-10 SCALE OBJECTIVE: APPEARANCE: PRESENTATION UPON OT ARRIVAL: PATIENT Sitting in manual wheelchair at bedside PRESENTATION UPON OT DEPARTURE: PATIENT Sitting in manual wheelchair with staff assistance BED / CHAIR ALARM IN PLACE AND ACTIVATED UPON OT DEPARTURE: Yes CALL LIGHT WITHIN ARMS REACH OF PATIENT AT END OF SESSION: No - due to patient taken to physical therapy gym COMPLETED PATIENT HANDOFF AND NOTIFIED Physical Therapist / Physical Therapist Human Resources Clerk, NAME: Marcia, OF PATIENT'S LOCATION AND FUNCTIONAL STATUS UPON COMPLETION OF SESSION COGNITIVE / PERCEPTUAL: Alert and oriented to conversation (Short Blessed Test) Answer Max Error Error Score Weight Sub-Score 1. What year is it now? 2023 1 0 4 0 2. What month is it now? Repeat this phrase after me and remember it. Nigel Williamson [address] [place] [address]. Number of trialto learning 1 max 3 December 1 0 3 0 3. About what time is it without looking at your watch (within 1 hour?) Response: 1430 Actual Time: 1355 1 0 3 0 4. Count backwards from 20 to 1. Grey correctly sequenced #'s [x]20 [x]19 [x]18 [x] 17 [x]16 [x]15 [x] 14 [x]13 [x]12 [x]11 [x] 10 [x]9 [x]8 [x] 7 [x] 6 [x]5 [x]4 [x]3 [x]2 [x]1 2 0 2 0 5. Say the months of the year in reverse. [x] D [x] N [x]O [x] S [x] A [x]JL [x]JU [x]MY [x]A [x]M [x]F [x] J 2 0 2 0 6. Repeat the name and address I asked you to remember. Nigel Williamson [address] [facility]. [x] Nigel [x] [place] [x][address] [][facility] [x][place] 5 1 2 3 A weighted error score of 9 or greater indicates a need for further assessment. Total Weighted Error Score = 3 (a) Scoring 0 = No errors, 1 = 1 error, 2 = 2 or more errors, (b) An answer of either [facility] or [place] is acceptable. BIMS: COMPLETED - PLEASE REFER TO REHAB ACTIVITY TAB HEALTH LITERACY: COMPLETED - PLEASE REFER TO REHAB ACTIVITY TAB CAM (Signs and Symptoms of Delirium): COMPLETED - PLEASE REFER TO REHAB ACTIVITY TAB UE ROM / STRENGTH / COORDINATION: (A)ROM - RIGHT: WFL STRENGTH - RIGHT: 4+/5 (A)ROM - LEFT: No AROM observed in shoulder/elbow/wrist/digits; scapular elevation observed (P)ROM - LEFT: shoulder flexion to about 140 degrees, elbow flexion/extension WNL, wrist flexion/extension WNL, digit flexion/extension WNL, forearm supination/pronation WNL STRENGTH - LEFT: scapular elevation without resistance, 0/5 shoulder/elbow/wrist/digits HAND DOMINANCE: Right SUPPLY TEACHER STRENGTH (RIGHT): TRIAL 1: 41 TRIAL 2: 35 TRIAL 3: 36 AVERAGE: 37.3 POUND(S) SUPPLY TEACHER STRENGTH (LEFT): TRIAL 1: 0 TRIAL 2: 0 TRIAL 3: 0 AVERAGE: 0 POUND(S) LATERAL PINCH (RIGHT): TRIAL 1: 10 TRIAL 2: 11 TRIAL 3: 10 AVERAGE: 10.3 POUND(S) LATERAL PINCH (LEFT): TRIAL 1: 0 TRIAL 2: 0 TRIAL 3: 0 AVERAGE: 0 POUND(S) 3-JAW PINCH (RIGHT): TRIAL 1: 9 TRIAL 2: 9 TRIAL 3: 6 AVERAGE: 8 POUND(S) 3-JAW PINCH (LEFT): TRIAL 1: 0 TRIAL 2: 0 TRIAL 3: 0 AVERAGE: 0 POUND(S) 9-HOLE PEG TEST (RIGHT): 52.4 SECOND(S) 9-HOLE PEG TEST (LEFT): UNABLE TO ATTEMPT CAREGIVER PRESENT (YES / NO): No EDUCATION & TRAINING PROVIDED: Role of OT and OT plan of care ASSESSMENT: ACTIVITY TOLERANCE / RESPONSE TO OT: GOOD PARTICIPATION, GOOD MOTIVATION, and RECEPTIVE TO EDUCATION / TRAINING PLAN: THERAPY PLAN: PLEASE REFER TO INITIATION OF OT EVALUATION COMPLETED EARLIER THIS DATE FOR THERAPY PLAN, INCLUDINGFREQUENCY OF THERAPY, RECOMMENDED DISCHARGE LOCATION, RECOMMENDED LEVEL OF SUPERVISION AND ARRANGEMENTS LONGTERM GOALS: PLEASE REFER TO INITIATION OF OT EVALUATION COMPLETED EARLIER THIS DATE FOR COURT COLLECTIONS OFFICER GOALS Rosalia Marinelli OT 12/16/23 ER/WAITRESS CAFETERIA * Becky Montana MD - 12/16/2023 12:08 PM CST INPATIENT REHABILITATION DAILY PROGRESS NOTE CHIEF COMPLAINT: right posterior limb internal capsule infarct SUBJECTIVE: Slept well last night. Denies pain. OBJECTIVE: VITALS: Vitals: 12/15/23 1451 12/15/23 1900 12/16/23 0620 12/16/23 08 BP: 118/68 145/78 129/86 BP Location: Right arm Right arm Right arm Patient Position: HOB 30 degrees Lying Lying Pulse: 63 58 58 Resp: 16 16 16 Temp: 36.3 ??C (97.3 ??F) 36.7 ??C (98.1 ??F) 36.7 ??C (98.1 ??F) TempSrc: Oral Oral Oral SpO2: 96% 95% 96% Weight: 102.1 kg (225 lb) Height: 177.8 cm (5' 10 ) PHYSICAL EXAM: General: no acute distress, washing up at sink HEENT: normocephalic, trachea midline Heart: rrr Lungs: ctab GI: soft, nontender Neuro: alert, awake LABS/RADIOLOGY/DIAGNOSTIC REVIEW Recent Labs Lab Units 12/16/23 0411 WBC K/cumm 9.2 HEMOGLOBIN g/dL 13.3 HEMATOCRIT % 40.3 PLATELETS K/cumm 259 Recent Labs Lab Units 12/16/23 0411 SODIUM mmol/L 138 POTASSIUM PLASMA mmol/L 4.3 CHLORIDE mmol/L 103 CO2 mmol/L 25 ANIONGAP mmol/L 10 GLUCOSE mg/dL 107 BUN SERUM mg/dL 22 CREATININE mg/dL 1.09 CALCIUM mg/dL 8.9 ALBUMIN g/dL 3.4* ALK PHOS Units/L 116 ALT Units/L 11 AST Units/L 16 BILIRUBIN TOTAL mg/dL 0.4 Recent Labs Lab Units 12/16/23 0411 12/14/23 0427 12/13/23 0252 12/12/23 0420 12/11/23 0547 12/10/23 0254 GLUCOSE mg/dL 107 118 106 105 116 100 PT Functional Mobility: eval: Bed Mobility: Sit to supine with mod assist of 1 for left LE and trunk, supine to sit with mod assist of 1 for left LE and trunk. Rolls left with min assist, rolls rightwith mod assist and cues to attend to left arm. Transfers: sit to/from stand with mod assist of 1, transfers w/c to/from bed going to the right with mod assist of 1. Max assist transferring to the left. Second person for safety for transfers Ambulation: 5' at rasheed bar , max assist of 1 with w/c follow. Patient requires assist for left LE advancement and stability, cues for weight shift, cues for posture, assist for trunk control. Stairs: unsafe Wheelchair management & propulsion: propels w/c 50' using rasheed technique and max assist of 1 No results found. MEDICATIONS: Current Facility-Administered Medications: acetaminophen (TYLENOL) tablet 650 mg, 650 mg, oral, Q6H PRN, Becky Montana MD, 650 mg at 12/16/23 0912 albuterol HFA (PROVENTIL HFA,VENTOLIN HFA,PROAIR HFA) 90 mcg/actuation inhaler 2 puff, 2 puff, inhalation, Q4H PRN (RT), Becky Montana MD aspirin chewable tablet 81 mg, 81 mg, oral, Daily, Becky Montana MD, 81 mg at 12/16/23 0854 calcium carbonate (TUMS) chewable tablet 1,000 mg, 400 mg of elemental calcium, oral, TID PRN, Becky Montana MD donepeziL (ARICEPT) tablet 10 mg, 10 mg, oral, Nightly, Becky Montana MD, 10 mg at 12/15/231957 [Held by Provider] enoxaparin (LOVENOX) syringe 40 mg, 40 mg, subcutaneous, Daily-2100, Becky Montana MD fluticasone furoate-vilanteroL (BREO ELLIPTA) 100-25 mcg/dose inhaler 1 puff, 1 puff, inhalation, Daily (RT), Becky Montana MD, 1 puff at 12/16/23 0827 gabapentin (NEURONTIN) capsule 300 mg, 300 mg, oral, TID, Becky Montana MD, 300 mg at 12/16/23 0854 levothyroxine (SYNTHROID) tablet 150 mcg, 150 mcg, oral, Daily - 0600, Becky Rudd MD, 150 mcg at 12/16/23 0623 ofloxacin (OCUFLOX) 0.3 % ophthalmic solution 1 drop, 1 drop, each eye, Daily PRN, Becky Montana MD ondansetron (ZOFRAN) tablet 4 mg, 4 mg, oral, TID PRN, Becky Montana MD oxyCODONE (ROXICODONE) tablet 5 mg, 5 mg, oral, Q4H PRN, Becky Montana MD pantoprazole DR (PROTONIX) extended release tablet 40 mg, 40 mg, oral, BID, Jl Montana MD, 40 mg at 12/16/23 0854 polyethylene glycol (MIRALAX) packet 17 g, 17 g, oral, Daily, Becky Montana MD, 17 gat 12/16/23 0854 ramelteon (ROZEREM) tablet 8 mg, 8 mg, oral, Nightly PRN, Becky Montana MD rosuvastatin (CRESTOR) tablet 40 mg, 40 mg, oral, Daily, Bceky Montana MD, 40 mg at 12/16/23 0854 senna-docusate (PERICOLACE) 8.6-50 mg per tablet 1 tablet, 1 tablet, oral, BID PRN, Becky Montana MD simethicone (MYLICON) chewable tablet 80 mg, 80 mg, oral, TID PRN, Becky Rudd MD tamsulosin (FLOMAX) extended release capsule 0.4 mg, 0.4 mg, oral, Nightly, Jl Montana MD, 0.4 mg at 12/15/231957 tiZANidine (ZANAFLEX) tablet 2 mg, 2 mg, oral, TID PRN, Becky Montana MD ASSESSMENT/PLAN: MEDICAL PLAN OF CARE: 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 Impaired mobility, ADLs, transfers, gait, balance, strength, endurance, speech, cognition, swallow PT OT eval NUMEROLOGIST eval Continue aspirin 81mg, rosuvastatin 40mg HTN: no current medications, monitor bp 12/15: controlled HLD: continue rosuvastatin 40mg AAA: no current medications Hypothyroidism: continue levothyroxine 150mcg GERD: continue pantoprazole 40mg bid Alzheimer: continue donepezil 10mg qhs Depression: no current medications Asthma: continue breo ellipta 100-25 daily BPH: continue flomax 0.4mg qhs Neuropathy: continue gabapentin 300mg tid Pain: Start Tylenol 650mg q6h prn, oxycodone 5mg q4h prn Bowels: Start miralax daily, pericolace bid prn, simethicone prn Nausea: Start Zofran prn, Tums prn Diet: Reg/Thin HH 2G Na DVT ppx: holding lovenox for possible gi bleed Precautions: Fall Weightbearing status: full Code: Full Code Care discussed with Nursing, OT Reviewed vital signs, intake, bowel, and bladder - as above Reviewed admit cmp, cbc - wnl REHAB PLAN OF CARE: Patient's expected intensity and duration of participation in the interdisciplinary rehabilitation program and disciplines that comprise this team: Therapies required to achieve goals:The patient will benefit from integrated coordination of care from the following interdisciplinary services: Medical Supervision, 24 hours Rehabilitation Nursing, Physical Therapy, Occupational Therapy, Case Management; Social Work; Therapeutic Recreation; SpeechTherapy; Flatwork Feeder Frequency and duration of therapies expect to be:Expected intensity and frequency of participation in the interdisciplinary rehab program is: 3 hours per day except Wednesday. Expected intensity and frequency of Physical Therapy (PT): 1.5 hours per day over 5-7 days for the duration of length of stay Expected intensity and frequency of Occupational Therapy (OT): 1.5 hours per day over 5-7 days per week for the duration of length of stay Expected intensity and frequency of Speech Therapy (NUMEROLOGIST): 1 hour per day per day over 5-7 days per week for the duration of length of stay FUNCTIONAL CHANGE: Therapy evals today DISCHARGE PLANNING: Expected Discharge Date: TBD Equipment: TBD Family Training: SW to set up Education: Follow up Appointments: PCP 1-2 weeks Becky Montana MD Physical Medicine and Rehabilitation I can be reached from 7am-7pm through [email or web address] chat. Hospitalist forest fire prevention manager from 7pm-7am ER/WAITRESS [place] * Vanessa Zaman, PT - 12/16/2023 11:10 AM CST Physical Therapy INITIAL EVALUATION PATIENT'S NAME:Gunjan Gtz Jr. :1945 AGE:78 y.o. TIME IN: 11:08 TIME OUT:11:55 CURRENT DIAGNOSIS AND HOSPITAL COURSE: CVA Presented to [facility] on 12/07 with sudden left sided weakness. CTH negative. CTA no LVO. He was given tPA. Neurology consulted. 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 Patient Active Problem List Diagnosis Primary osteoarthritis of both knees Subchondral insufficiency fracture of condyle of left femur (CMS/HCC) ([facility]) Closed fracture of left tibial plateau with delayed healing Closed fracture of right tibial plateau with delayed healing Closed nondisplaced osteochondral fracture of left patella with delayed healing Closed osteochondral fracture of patella, right, with delayed healing, subsequent encounter Complex tear of medial meniscus of right knee as current injury Complex tear of medial meniscus of left knee as current injury Goiter Breast pain, right Cataract of right eye Diplopia Esotropia Hypertropia of right eye Skin lesion of breast Edema Intermittent claudication (HCC) Iron deficiency anemia Peripheral vascular disease (HCC) Pain due to total right knee replacement (CMS/HCC) (HCC) Hamstring tendinitis of right thigh Quadriceps weakness Idiopathic peripheral neuropathy Abnormality of gait and mobility Hx of total knee replacement, right Neuropathy (CMS/HCC) 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 Biceps tendinitis of left upper extremity Tear of left glenoid labrum Coffee ground emesis Upper GI bleed Acquired hypothyroidism Acute blood loss anemia Lung nodule Nocturnal cough Hiatal hernia Infrarenal abdominal aortic aneurysm (AAA) without rupture ([facility]) Acute CVA (cerebrovascular accident) ([facility]) Past Medical History: Diagnosis Date Acute gastric ulcer without hemorrhage or perforation Ulcer, gastric, acute - (Added by TW Conv) Alzheimer's dementia ([facility]) Asthma Back pain Cataract Closed fracture of left tibial plateau with delayed healing Closed fracture of right tibial plateau with delayed healing Closed nondisplaced osteochondral fracture of left patella with delayed healing Closed osteochondral fracture of patella, right, with delayed healing, subsequent encounter Clotting disorder (CMS/HCC) ([facility]) Complex tear of medial meniscus of left knee as current injury Complex tear of medial meniscus of right knee as current injury Cramps of lower extremity Diverticulitis of colon Easy bruisability Fatigue Frequent urination Gastroesophageal reflux disease GERD Hypothyroidism Incontinence of urine Muscle weakness Osteoarthritis Osteoarthritis Peptic ulcer Peptic ulcer disease Seizures ([facility]) 1997 last seizure in 1997 SOB (shortness of breath) on exertion Subchondral insufficiency fracture of condyle of left femur (CMS/HCC) ([facility]) Vertigo Vision changes Visual disturbance hx of double vision, corrective lenses Past Surgical History: Procedure Laterality Date CATARACT EXTRACTION, BILATERAL Bilateral 2018 HERNIA REPAIR 1979 Hiatal Hernia repair KNEE ARTHROSCOPY Bilateral THYROIDECTOMY 12/27/2019 SUBJECTIVE LIVES WITH: ( Alon) LIVING ENVIRONMENT: One level with walkout basement. Reports 2 steps to enter without handrail. 0 steps to enter the walkout basement. Reports full flight of stairs between main level and basement. Does not need to access basement. PRIOR LEVEL OF FUNCTION: reports he is completely independent with all self care, shares community living coach with . Reports he was working for [employer]. Enjoys watching basketball. EQUIPMENT OWNED: 2 w/w, rollator, toilet riser, straight cane EQUIPMENT USED: none SOCIAL SUPPORTS: supportive (Alon) who is a school bus attendant PATIENT/FAMILY GOAL: to get out of here and return to what I was doing before MENTAL STATUS/ORIENTATION: Alert and oriented x4 OBJECTIVE PRECAUTIONS: FALL, SEIZURE, BED/CHAIR ALARM APPEARANCE/POSTURE: SEATED IN W/C, ROOM AIR, CHAIR ALARM, AGREEABLE TO PT VITAL SIGNS: Resting BP: 133/87 Post-activity BP: 128/78 Resting heart rate: 63BPM Post-activity heart rate: 69bpm Resting O2 sat: 96% Post-activity O2 sat: 97% PAIN: Pre-therapy pain level: 0/10 Pain location: n/a Pain intervention: n/a Post-therapy pain level/response to intervention: 0/10 LE ASSESSMENTS: Right LE ROM: WFL AROM Left LE ROM: WFL AAROM Right LE strength: GROSSLY 5/5 Left LE strength: hip flexion 2+/5, hip abduction 2+/5, hip adduction 3/5, knee extension 3-/5, hamstring 2/5, ankle dorsiflexion 1/5, plantar flexion 2/5 Coordination: moderate impairment left LE due to weakness Tone: hypotonic left UE/LE MOBILITY: Bed Mobility: Sit to supine with mod assist of 1 for left LE and trunk, supine to sit with mod assist of 1 for left LE and trunk. Rolls left with min assist, rolls right with mod assist and cues to attend to left arm. Transfers: sit to/from stand with mod assist of 1, transfers w/c to/from bed going to the right with mod assist of 1. Max assist transferring to the left. Second person for safety for transfers Ambulation: 5' at rasheed bar , max assist of 1 with w/c follow. Patient requires assist for left LE advancement and stability, cues for weight shift, cues for posture, assist for trunk control. Stairs: unsafe Wheelchair management & propulsion: propels w/c 50' using rasheed technique and max assist of 1 Balance: Static sitting balance: good - Dynamic sitting balance: fair + Static standing balance: fair + supported Dynamic standing balance: fair - supported Appearance/Posture at end of treatment session: seated in w/c, room air, chair alarm, left UE on pillow, with RN call light in reach, on the phone with family ASSESSMENT PROBLEM LIST: Patient demonstrates left sided hemiplegia, significant weakness on left side and trunk, hypotonicity, impaired coordination, impaired balance, decreased endurance, facial droop BARRIERS TO LEARNING: Physical BARRIERS TO DISCHARGE: Decreased endurance, Decreased sensation, Decreased proprioception, Upper extremity weakness, Lower extremity weakness, Medical complications, and Stairs at home REHAB POTENTIAL/PROGNOSIS: good PLAN RECOMMENDATIONS: acute rehab stay with goals of d/c home with family TREATMENT PLAN/INTERVENTIONS: stair training, strength training, mobility training, gait training, neuromuscular reeducation, balance training, endurance training, education, family teaching, and safe use of DME FREQUENCY: 5-6x/week, BID EQUIPMENT RECOMMENDATIONS: currently manual w/c, anticipated progression to cane EDUCATION & GOALS: PATIENT/FAMILY EDUCATION: goals for PT, inpatient rehab, safety RESPONSE TO EDUCATION: needs reinforcement Refer to multi-disciplinary care plan section for PT specific goals. ER/WAITRESS [place] * Rosalia Marinelli, OT - 12/16/2023 10:00 AM CST Occupational Therapy NOTE / SESSION TYPE: OT EVALUATION PATIENT'S NAME: Gunjan Gtz Jr. AGE / SEX: 78 y.o. / male ROOM: [place] [id number] : 1945 DATE: 12/16/23 TIME IN: 1000 TIME OUT: 1104 Patient Active Problem List Diagnosis Primary osteoarthritis of both knees Subchondral insufficiency fracture of condyle of left femur (CMS/HCC) (HCC) Closed fracture of left tibial plateau with delayed healing Closed fracture of right tibial plateau with delayed healing Closed nondisplaced osteochondral fracture of left patella with delayed healing Closed osteochondral fracture of patella, right, with delayed healing, subsequent encounter Complex tear of medial meniscus of right knee as current injury Complex tear of medial meniscus of left knee as current injury Goiter Breast pain, right Cataract of right eye Diplopia Esotropia Hypertropia of right eye Skin lesion of breast Edema Intermittent claudication (HCC) Iron deficiency anemia Peripheral vascular disease (HCC) Pain due to total right knee replacement (CMS/HCC) (HCC) Hamstring tendinitis of right thigh Quadriceps weakness Idiopathic peripheral neuropathy Abnormality of gait and mobility Hx of total knee replacement, right Neuropathy (CMS/HCC) 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 Biceps tendinitis of left upper extremity Tear of left glenoid labrum Coffee ground emesis Upper GI bleed Acquired hypothyroidism Acute blood loss anemia Lung nodule Nocturnal cough Hiatal hernia Infrarenal abdominal aortic aneurysm (AAA) without rupture (HCC) Acute CVA (cerebrovascular accident) (HCC) Past Medical History: Diagnosis Date Acute gastric ulcer without hemorrhage or perforation Ulcer, gastric, acute - (Added by TW Conv) Alzheimer's dementia ([facility]) Asthma Back pain Cataract Closed fracture of left tibial plateau with delayed healing Closed fracture of right tibial plateau with delayed healing Closed nondisplaced osteochondral fracture of left patella with delayed healing Closed osteochondral fracture of patella, right, with delayed healing, subsequent encounter Clotting disorder ([facility]) ([facility]) Complex tear of medial meniscus of left knee as current injury Complex tear of medial meniscus of right knee as current injury Cramps of lower extremity Diverticulitis of colon Easy bruisability Fatigue Frequent urination Gastroesophageal reflux disease GERD Hypothyroidism Incontinence of urine Muscle weakness Osteoarthritis Osteoarthritis Peptic ulcer Peptic ulcer disease Seizures ([facility]) 1997 last seizure in 1997 SOB (shortness of breath) on exertion Subchondral insufficiency fracture of condyle of left femur (CMS/[facility]) ([facility]) Vertigo Vision changes Visual disturbance hx of double vision, corrective lenses Past Surgical History: Procedure Laterality Date CATARACT EXTRACTION, BILATERAL Bilateral 2018 HERNIA REPAIR 1979 Hiatal Hernia repair KNEE ARTHROSCOPY Bilateral THYROIDECTOMY 12/27/2019 ADDITIONAL SIGNIFICANT MEDICAL INFORMATION: 78yoM with history of GERD, PVD presented to [facility] on 12/07 with sudden left sided weakness. CTH negative. CTA no LVO. He was given tPA. Neurology consulted.MRI revealed acute infarct in the posterior limb of the right internal capsule. Noted to have coffee ground emesis, lovenox and aspirin held and patient started on IV protonix. No further episodes and aspirin resumed. FOBT negative. PRECAUTIONS (INCLUDING WEIGHT-BEARING): Fall risk and Bed / chair alarm SUBJECTIVE: Patient agreeable THERAPY PAIN: PRE-THERAPY PAIN LEVEL: 4 /10 PAIN LEVEL GOAL: 0 /10 PAIN LOCATION: RUE PAIN INTERVENTION(S): Repositioned POST-THERAPY PAIN LEVEL: 0 /10 PAIN SCALE USED: 0-10 SCALE PRIOR FUNCTION: LIVES WITH: OTHER SOCIAL SUPPORTS / ASSISTANCE AVAILABLE: (works during days); children LIVING ENVIRONMENT (TYPE OF RESIDENCE / ENTRANCE ACCESSIBILITY): 1-story house/ trailer with 1-2 RANDY; basement that patient accesses occasionally BATHROOM LOCATION AND SET-UP: Walk-in shower with shower bench and jacuzzi tub PRIOR LEVEL OF FUNCTION: Independent with BADLs. 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 SOCIAL ROLES / HOBBIES: watching basketball PATIENT / FAMILY GOAL(S): get back to my original strength OBJECTIVE: APPEARANCE: PRESENTATION UPON OT ARRIVAL: PATIENT Sitting in bedside recliner PRESENTATION UPON OT DEPARTURE: PATIENT Sitting in manual wheelchair with staff assistance BED / CHAIR ALARM IN PLACE AND ACTIVATED UPON OT DEPARTURE: Yes CALL LIGHT WITHIN ARMS REACH OF PATIENT AT END OF SESSION: No - due to patient taken to physical therapy gym COMPLETED PATIENT HANDOFF AND NOTIFIED Physical Therapist / Physical Therapist Human Resources Clerk, NAME: Poly, OF PATIENT'S LOCATION AND FUNCTIONAL STATUS UPON COMPLETION OF SESSION COGNITIVE / PERCEPTUAL: A&O x4, follows 1 step commands 100%, pleasant and cooperative throughout BIMS: NOT COMPLETED - SPEECH THERAPY TO ADDRESS HEALTH LITERACY: NOT COMPLETED - SPEECH THERAPY TO ADDRESS CAM (Signs and Symptoms of Delirium): NOT COMPLETED - SPEECH THERAPY TO ADDRESS SELF CARE: SHOWER / BATHE SELF TYPE OF BATHING: SPONGEBATHING LOCATION OF SHOWER / BATHE SELF: Sitting in manual wheelchair and Standing at grab bar TASKS COMPLETED: ALL COMPONENTS COMPONENTS THAT REQUIRED ASSISTANCE (IF APPLICABLE): MAX ASSIST RIGHT ARM, MIN ASSIST LEFT ARM, TOTAL ASSIST BUTTOCKS, TOTAL ASSIST LEFT LOWER LEG, INCLUDING FOOT, and MAX ASSIST RIGHT LOWER LEG, INCLUDING FOOT OVERALL ASSIST LEVEL: TOTAL / DEPENDENT ASSISTANCE (100% / TWO OR MORE HELPERS) ADAPTIVE EQUIPMENT (IF APPLICABLE): no assistive device ADDITIONAL DOCUMENTATION: TOTAL assist overall. Patient required max assist to wash RUE and min assist to raise LUE to wash underarm. Patient required total assist to wash L foot, able to raise R foot for OT to wash. Total assist to wash buttock standing at grab bar ORAL HYGIENE LOCATION OF ORAL HYGIENE: Sitting in manual wheelchair OVERALL ASSIST LEVEL: PARTIAL / MODERATE ASSISTANCE: LESS THAN HALF (1% - 49%) ADDITIONAL DOCUMENTATION: MIN assist overall. Required assist to place toothpaste and turn on/off water OTHER GROOMING TASKS LOCATION OF OTHER GROOMING TASKS: Sitting in manual wheelchair TASKS COMPLETED: APPLYING DEODORANT OVERALL ASSIST LEVEL: SUBSTANTIAL / MAXIMAL ASSISTANCE: MORE THAN HALF (50% - 99%) ADDITIONAL DOCUMENTATION: MAX assist overall. OT raised LUE while patient applied spray deodorant (mod assist). Max assist to apply spray deodorant to R underarm UE DRESSING LOCATION OF UE DRESSING: Sitting in manual wheelchair TASKS COMPLETED: sweatshirt and Pullover shirt OVERALL ASSIST LEVEL: SUBSTANTIAL / MAXIMAL ASSISTANCE: MORE THAN HALF (50% - 99%) ADDITIONAL DOCUMENTATION: MAX assist overall. Max assist to thread LUE through shirt/sweatshirt. Mod assist to bring shirt/sweatshirt over head. Max assist to pull shirt/sweatshirt down over abdomen LE DRESSING (UNDERWEAR / PANTS) LOCATION OF LE DRESSING (UNDERWEAR / PANTS): Sitting in manual wheelchair and Standing at grab bar TASKS COMPLETED: Elastic waist pants and Incontinence briefs as underwear OVERALL ASSIST LEVEL: TOTAL / DEPENDENT ASSISTANCE (100% / TWO OR MORE HELPERS) ADDITIONAL DOCUMENTATION: TOTAL assist overall. Max assist to stand at grab bar and max assist of another to pull brief/pants over hips. Max assist to thread brief/pants over BLEs PUTTING ON / TAKING OFF FOOTWEAR LOCATION OF PUTTING ON / TAKING OFF FOOTWEAR: Sitting in manual wheelchair TASKS COMPLETED: Footie(s) OVERALL ASSIST LEVEL: TOTAL / DEPENDENT ASSISTANCE (100% / TWO OR MORE HELPERS) ADDITIONAL DOCUMENTATION: TOTAL assist overall. Total assist for doffing/donning L footie. Max assist for doffing/donning R footie due to patient able to raise foot to assist MOBILITY: TRANSFERS: Max assist for sit to stand from recliner Max assist x1/mod assist of another for stand pivot from recliner to w/c going towards R side Max assist for sit <> stand at grab bar HEARING / SPEECH / VISION: EXPRESSION OF IDEAS AND WANTS OVERALL ASSIST LEVEL: WITHOUT DIFFICULTY UNDERSTANDING VERBAL AND NON-VERBAL CONTENT OVERALL ASSIST LEVEL: UNDERSTANDS CAREGIVER PRESENT (YES / NO): No ASSESSMENT: ACTIVITY TOLERANCE / RESPONSE TO OT: GOOD PARTICIPATION, GOOD MOTIVATION, and RECEPTIVE TO EDUCATION / TRAINING REHAB POTENTIAL (PROGNOSIS): good PROBLEM LIST: Decreased UE ROM , Decreased UE strength, Decreased coordination, Decreased balance, Decreased mobility, Decreased endurance, Decreased ADL independence, and Pain BARRIERS TO DISCHARGE: Pain, Decreased endurance, Upper extremity weakness, Lower extremity weakness, Stairs at home, and Medication managment PLAN: THERAPY PLAN: OT RECOMMENDATIONS: LOCATION: Home SUPERVISION: 24 hour FOLLOW-UP THERAPY RECOMMENDATIONS: HOME HEALTH OT FREQUENCY OF THERAPY: BID SESSIONS 5 DAYS / WEEK INTERVENTIONS / EDUCATION NEEDS: ADL training, Compensatory ADL strategies, Adaptive equipment education, Durable medical equipment education, Balance activities, Functional transfer training, Safetyeducation, UE home exercise program education, and Family training as appropriate EDUCATION PROVIDED: Role of OT, OT plan of care, ADL training, Compensatory ADL strategies, Functional transfer training, Balance training, and Safety education LONGTERM GOALS: Multi-Disciplinary Problems (from Occupational Therapy) Active Problems [place]: [place] [facility] [place]: 12/16/23 Goal Start Date Expected End Date End Date [facility] 1 12/16/23 12/23/23 -- Goal Details: Patient will complete basic ADL routine including: bathing in shower, LE dressing, footwear, UB dressing, and grooming tasks with min assist and appropriate compensatory strategies. Goal Start Date Expected End Date End Date [facility] 2 12/16/23 12/23/23 -- Goal Details: Patient will complete simulated car transfer using appropriate device with min assist Goal Start Date Expected End Date End Date [facility] 3 12/16/23 12/23/23 -- Goal Details: Patient will complete toileting and toilet transfer with min assist and appropriate device. Goal Start Date Expected End Date End Date [facility] 4 12/16/23 12/23/23 -- Goal Details: Patient will complete functional/meaningful task in standing for 3-5 minutes with minassist for balance one time. Goal Start Date Expected End Date End Date [facility] 5 12/16/23 12/23/23 -- Goal Details: Patient will complete HEP (LUE SROM/RUE AROM) to improve BUE ROM/strength/endurance and ADL participation with min verbal cues 1 time. Goal Start Date Expected End Date End Date [facility] 6 12/16/23 12/23/23 -- Goal Details: Patient family/caregiver will attend one OT session and be aware of discharge needs/plans Goal Start Date Expected End Date End Date [facility] 7 12/16/23 12/23/23 -- Goal Details: Patient will complete medication management for 2-3 prescriptions with 100% accuracy and no additional cues one time. Rosalia Marinelli, OLGA 12/16/23 ER/WAITRESS [place] * Paresh Prieto, NUMEROLOGIST - 12/16/2023 8:11 AM CST SPEECH-LANGUAGE PATHOLOGY INITIAL EVALUATION Patient's Name: Gunjan Gtz Jr. : 1945 Age: 78 y.o. Time In: 8:30 Time Out: 9:00 Current diagnosis and hospital course: Patient presented to ED via EMS with sudden onset of difficulty with speech, left arm weakness and left leg weakness. Stroke protocol initiated. CT/CTA with no evidence of stroke or no significant carotid artery stenosis. S/P TNK. MRI of brain with acute infarct posterior limb internal capsule right side. Repeat CT of head showed subacute infarct internal capsule and lentiform nucleus right side corresponding to MRI findings. Noted to have coffee ground emesis, lovenox and aspirin held and patient started on IV protonix. No further episodes and aspirin resumed. FOBT negative. Therapies recommend acute rehab prior to discharge home. Patient Active Problem List Diagnosis Primary osteoarthritis of both knees Subchondral insufficiency fracture of condyle of left femur (CMS/HCC) ([facility]) Closed fracture of left tibial plateau with delayed healing Closed fracture of right tibial plateau with delayed healing Closed nondisplaced osteochondral fracture of left patella with delayed healing Closed osteochondral fracture of patella, right, with delayed healing, subsequent encounter Complex tear of medial meniscus of right knee as current injury Complex tear of medial meniscus of left knee as current injury Goiter Breast pain, right Cataract of right eye Diplopia Esotropia Hypertropia of right eye Skin lesion of breast Edema Intermittent claudication (HCC) Iron deficiency anemia Peripheral vascular disease (HCC) Pain due to total right knee replacement (CMS/HCC) ([facility]) Hamstring tendinitis of right thigh Quadriceps weakness Idiopathic peripheral neuropathy Abnormality of gait and mobility Hx of total knee replacement, right Neuropathy (CMS/HCC) 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 Biceps tendinitis of left upper extremity Tear of left glenoid labrum Coffee ground emesis Upper GI bleed Acquired hypothyroidism Acute blood loss anemia Lung nodule Nocturnal cough Hiatal hernia Infrarenal abdominal aortic aneurysm (AAA) without rupture (HCC) Acute CVA (cerebrovascular accident) ([facility]) Past Medical History: Diagnosis Date Acute gastric ulcer without hemorrhage or perforation Ulcer, gastric, acute - (Added by TW Conv) Alzheimer's dementia ([facility]) Asthma Back pain Cataract Closed fracture of left tibial plateau with delayed healing Closed fracture of right tibial plateau with delayed healing Closed nondisplaced osteochondral fracture of left patella with delayed healing Closed osteochondral fracture of patella, right, with delayed healing, subsequent encounter Clotting disorder (CMS/HCC) ([facility]) Complex tear of medial meniscus of left knee as current injury Complex tear of medial meniscus of right knee as current injury Cramps of lower extremity Diverticulitis of colon Easy bruisability Fatigue Frequent urination Gastroesophageal reflux disease GERD Hypothyroidism Incontinence of urine Muscle weakness Osteoarthritis Osteoarthritis Peptic ulcer Peptic ulcer disease Seizures ([facility]) 1997 last seizure in 1997 SOB (shortness of breath) on exertion Subchondral insufficiency fracture of condyle of left femur (CMS/HCC) ([facility]) Vertigo Vision changes Visual disturbance hx of double vision, corrective lenses Past Surgical History: Procedure Laterality Date CATARACT EXTRACTION, BILATERAL Bilateral 2018 HERNIA REPAIR 1979 Hiatal Hernia repair KNEE ARTHROSCOPY Bilateral THYROIDECTOMY 12/27/2019 SUBJECTIVE LIVES WITH: LIVING ENVIRONMENT: 1 story house with a basement PRIOR LEVEL OF FUNCTIONING:Independent with all self care tasks. 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 SOCIAL SUPPORTS: PATIENT/FAMILY GOAL: To return home and to be able to drive. OBJECTIVE PRECAUTIONS: Fall precautions PAIN: Pre Therapy Pain Level: 0/10 Pain Location: N/A Pain Intervention: N/A Post Therapy Pain Level/Response to Intervention: 0/10 ORAL MOTOR Left labial weakness with decreased ROM Lingual ROM appears WFL Adequate dentition MOTOR SPEECH Mild dysarthric speech. Patient able to elicit spontaneous sentences with 80% intelligibility. COMPREHENSION Patient able to follow 1-2 step commands, answer yes/no questions and comprehend basic information with 100% accuracy. EXPRESSION WFL - No word finding deficits noted during informal evaluation COGNITION BIMS completed Oriented x4 Cognitive deficits in short term memory and insight. Left visual field inattention noted. SWALLOWING/DYSPHAGIA Swallow assessed by NUMEROLOGIST. Regular consistency diet/thin liquids recommended. Patient reports residueon left side of oral cavity and uses finger sweep to clear. ASSESSMENT BARRIERS TO LEARNING:Visual and Cognitive BARRIERS TO DISCHARGE:Cognitive deficit, Limited insight into deficits, and Impaired vision REHAB POTENTIAL/PROGNOSIS:good PLAN RECOMMENDATIONS:Recommend home with 24 hour supervision at discharge TREATMENT PLAN/INTERVENTIONS:Cognition, Communication FREQUENCY: BID, 5xs weekly If this is the last note, consider this the discharge summary EDUCATION AND GOALS Multi-Disciplinary Problems (from Speech Therapy) Active Problems Problem: NUMEROLOGIST Misc Start Date: 12/16/23 Goal Start Date Expected End Date End Date [facility] [place]16[place]23 12/23/23 -- Goal Details: Patient to perform short term memory tasks using compensatory strategies with 80% accuracy. Goal Start Date Expected End Date End Date [facility] [place] 12/16/23 12/23/23 -- Goal Details: Patient to perform functional problem solving/reasoning tasks with 80% accuracy. Goal Start Date Expected End Date End Date [facility] [place] 12/16/23 12/23/23 -- Goal Details: Patient to attend to left visual field 80% of the time given 2-3 verbal prompts. Goal Start Date Expected End Date End Date [facility] [place] 12/16/23 12/23/23 -- Goal Details: Patient's speech to be 90% intelligible during conversational tasks utilizing compensatory strategies. PATIENT/FAMILY EDUCATION:Reviewed therapy schedule with patient RESPONSE TO EDUCATION:verbalizes understanding ER/WAITRESS CAFETERIA documented in this encounter H&P Notes * Becky Montana MD - 12/15/2023 3:29 PM CST INPATIENT REHABILITATION ADMISSION HISTORY AND PHYSICAL Gunjan Ulisses Maldonado. 1945 PRIMARY CARE PROVIDER: Wolfgang Serrano MD Referring Provider: Carlos Claire MD Follow up Appointments: PCP 1-2weeks CC right posterior limb internal capsule infarct HPI: Information from H&P obtained from encounter today with the patient and review of medical record. 78yoM with history of GERD, PVD presented to [facility] on 12/07 with sudden left sided weakness. CTH negative. CTA no LVO. He was given tPA. Neurology consulted. MRI revealed acute infarct in the posteriorlimb of the right internal capsule. Noted to have coffee ground emesis, lovenox and aspirin held and patient started on IV protonix. No further episodes and aspirin resumed. FOBT negative. Therapy rec ommending acute rehab prior to return home. Met with patient and daughter. He denies pain. States he is not sleeping well due to interruptions.States he does not like the food so has not been eating a lot. Had a bowel movement last night. No issues with urination. Denies fever, chills, chest pain, shortness of breath, nausea, vomiting, diarrhea. PLOF: Lives with who works. Daughter visiting from [place] but leaving tomorrow. 2 steps to enter. Independent without device. ROS 10 point ROS reviewed and negative unless listed above in history. PRIOR LEVEL OF FUNCTION: Mobility status/Ambulation aid/assistive devices: Transfers: Independent Walking: Independent Walking assistive devices used: None Wheelchair mobility: Not applicable Stair negotiation: Independent Falls: Has the patient had 2 or more falls in the past year or any fall with injury in the past year?: No Activities of daily living (ADL) status/ Assistive devices used for ADLs: Dressing: Independent Bathing: Independent Bathing equipment used: Handheld shower Toileting: Independent Toileting equipment used: Elevated toilet seat Bladder: Continent Bowel: Continent Domestic Chores: Required assistance (Shares with ) 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) CURRENT FUNCTIONAL STATUS: Height: Height: 177.8 cm (5' 10 ) Weight: Weight: 102.1 kg (225 lb) Diet: Diet: 2GM Sodium Low Fat, Low Cholesterol, Low Fat Snure Supplement with High Protein Bladder: Bladder assessment: Incontinent , Bowel: Bowel assessment: Continent Date of last BM: Last BM Date: 12/14/23 Integumentary: Integumentary: Hood Scale 16; No documented breaks in skin integrity Cardiopulmonary: Cardiopulmonary: Room air Dialysis: Dialysis: N/A Pain: Pain: Patient has pain that is controlled on current regimen IVs: IVs: Peripheral IV ADL: OT Functional Mobility: Treatment Note 12/14/2023: Mobility / Transfers: Bed Mobility: supine to sit to EOB with MOD A X 1. Sits unsupported with FAIR balance for approx 5 min. Transfer(s): Sit to stand with MOD A as well as pivot from to recliner; assist to advance L leg. Increased time (:53 PM) OT Self Care: Treatment Note 12/14/2023: GROOMING TASKS (INCLUDING ORAL HYGIENE) LOCATION OF GROOMING TASKS: Sitting on EOB TASKS COMPLETED: wiping face and BRUSHING TEETH OVERALL ASSIST LEVEL: MIN ADDITIONAL DOCUMENTATION: set up needed and MIN for sitting balance. Pt received PROM and gentle stretching at shoulder to LUE. Scapular mobilization and joint compression to LUE. Pt tolerated well. Trace movement in L scapular elevation. No other AROM noted. (12/14/2023 1:53 PM) OT Cognition: Treatment Note 12/14/2023: Cognitive / Perceptual: A O X 3 (12/14/2023 1:53 PM) OT Communication: Treatment Note 12/14/2023: Subjective: It feels good when you lift it all the way up. (Re PROM LUE) (12/14/2023 1:53 PM) MOBILITY/TRANSFERS: PT Functional Mobility: Treatment Note 12/14/2023: Yes ORIENTATION: Alert and oriented x4; MOBILITY DOCUMENTATION: Bed Mobility/Transfers: pt transfers mod A supine to sit, mod A sit to/from stand, mod A pivot transfer bed to chair (pt attempted to take steps but was unable to w/o UE support at this time. Gait: Pt amb 15' x1 w/luis rail max A w/close chair follow for safety. Deviations include slow gertrudis, decreased step length, flexed posture, downward gaze, decreased L foot clearance, assist to advance L LE, L foot drag, L knee buckling/unsteady requiring blocking from therapist to takestep w/R LE, and vc for sequencing. TREATMENT: Pt performed B LE seated HEP x10-15 reps SPV on R LE, SPV to mod A for L LE. (12/14/2023 1:53 PM) COGNITION/SWALLOWING/SPEECH: NUMEROLOGIST Cognition: Treatment Note 12/13/2023: MENTAL STATUS: Patient awake, sitting up in chair. Reports improvement with double vision. COGNITION: Cognitive deficits in short term memory and insight. TREATMENT ACTIVITIES: Recall daily activities/recent events with 100% accuracy Oral motor exercises 10xs each Oriented x4 (12/14/2023 1:53 PM) NUMEROLOGIST Communication: Treatment Note 12/13/2023: COMMUNICATION: Mild dysarthric speech. (12/14/2023 1:53PM) NUMEROLOGIST Swallowing: Treatment Note 12/13/2023: SWALLOWING: Swallow assessed by NUMEROLOGIST. Regular consistencydiet/thin liquids recommended. Patient's reports patient having difficulty with food getting stuck on left side of mouth. COMBATANT SWIMMER changed diet to mechanical soft/thin liquids. 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 Home Setting: One story home Prehospital Lives With: Spouse; Adult children ( and Daughter) Exterior Home Access: Steps (1-2 steps to enter) Interior Home Access: Steps (Basement Flight) Stairs needed to access: Laundry Pre hospital Living environment: Home Setting: One story home Prehospital Lives With: Spouse; Adult children ( and Daughter) PAST MEDICAL HISTORY: Past Medical History: Diagnosis Date Acute gastric ulcer without hemorrhage or perforation Ulcer, gastric, acute - (Added by TW Conv) Alzheimer's dementia ([facility]) Asthma Back pain Cataract Closed fracture of left tibial plateau with delayed healing Closed fracture of right tibial plateau with delayed healing Closed nondisplaced osteochondral fracture of left patella with delayed healing Closed osteochondral fracture of patella, right, with delayed healing, subsequent encounter Clotting disorder (CMS/HCC) ([facility]) Complex tear of medial meniscus of left knee as current injury Complex tear of medial meniscus of right knee as current injury Cramps of lower extremity Diverticulitis of colon Easy bruisability Fatigue Frequent urination Gastroesophageal reflux disease GERD Hypothyroidism Incontinence of urine Muscle weakness Osteoarthritis Osteoarthritis Peptic ulcer Peptic ulcer disease Seizures ([facility]) 1997 last seizure in 1997 SOB (shortness of breath) on exertion Subchondral insufficiency fracture of condyle of left femur (CMS/HCC) ([facility]) Vertigo Vision changes Visual disturbance hx of double vision, corrective lenses PAST SURGICAL HISTORY: Past Surgical History: Procedure Laterality Date CATARACT EXTRACTION, BILATERAL Bilateral 2018 HERNIA REPAIR 1979 Hiatal Hernia repair KNEE ARTHROSCOPY Bilateral THYROIDECTOMY 12/27/2019 FAMILY HISTORY: Family History Problem Relation Age of Onset Heart failure Other Family history of Congestive heart failure; Heart disease Other Family history of Heart disease; Osteoarthritis Other Family history of Osteoarthritis; Osteoporosis Other Family history of Osteoporosis; Heart attack Mother Heart attack Father Heart attack Sister SOCIAL HISTORY: reports that he quit smoking about 57 years ago. His smoking use included cigarettes. He started smoking about 58 years ago. He has never used smokeless tobacco. He reports current drug use. Drug: Alcohol. Patient reports consuming alcoholic drinks monthly or less, with a daily consumption of 1 or 2 drinks. Patient also reports less than monthly occurrences of consuming 6 or more alcoholic drinksat one occasion. PSYCHOSOCIAL HISTORY: dEpression, alzheimer MEDICATIONS: Current Facility-Administered Medications: acetaminophen (TYLENOL) tablet 650 mg, 650 mg, oral, Q6H PRN, Becky Montana MD albuterol HFA (PROVENTIL HFA,VENTOLIN HFA,PROAIR HFA) 90 mcg/actuation inhaler 2 puff, 2 puff, inhalation, Q4H PRN (RT), Becky Montana MD [START ON 12/16/2023] aspirin chewable tablet 81 mg, 81 mg, oral, Daily, Becky Rudd MD calcium carbonate (TUMS) chewable tablet 1,000 mg, 400 mg of elemental calcium, oral, TID PRN, Becky Montana MD donepeziL (ARICEPT) tablet 10 mg, 10 mg, oral, Nightly, Becky Montana MD [Held by Provider] enoxaparin (LOVENOX) syringe 40 mg, 40 mg, subcutaneous, Daily-2100, Becky Montana MD [START ON 12/16/2023] fluticasone furoate-vilanteroL (BREO ELLIPTA) 100-25 mcg/dose inhaler 1 puff, 1puff, inhalation, Daily (RT), Becky Montana MD gabapentin (NEURONTIN) capsule 300 mg, 300 mg, oral, TID, Becky Motnana MD [START ON 12/16/2023] levothyroxine (SYNTHROID) tablet 150 mcg, 150 mcg, oral, Daily - 0600, Becky Montana MD ofloxacin (OCUFLOX) 0.3 % ophthalmic solution 1 drop, 1 drop, each eye, Daily PRN, Becky Montana MD ondansetron (ZOFRAN) tablet 4 mg, 4 mg, oral, TID PRN, Becky Montana MD oxyCODONE (ROXICODONE) tablet 5 mg, 5 mg, oral, Q4H PRN, Becky Montana MD pantoprazole DR (PROTONIX) extended release tablet 40 mg, 40 mg, oral, BID, Jl Montana MD polyethylene glycol (MIRALAX) packet 17 g, 17 g, oral, Daily, Becky Montana MD ramelteon (ROZEREM) tablet 8 mg, 8 mg, oral, Nightly PRN, Becky Montana MD [START ON 12/16/2023] rosuvastatin (CRESTOR) tablet 40 mg, 40 mg, oral, Daily, Becky Montana MD senna-docusate (PERICOLACE) 8.6-50 mg per tablet 1 tablet, 1 tablet, oral, BID PRN, Becky Montana MD simethicone (MYLICON) chewable tablet 80 mg, 80 mg, oral, TID PRN, Becky Rudd MD tamsulosin (FLOMAX) extended release capsule 0.4 mg, 0.4 mg, oral, Nightly, Jl Montana MD tiZANidine (ZANAFLEX) tablet 2 mg, 2 mg, oral, TID PRN, Becky Montana MD ALLERGIES: No Known Allergies PHYSICAL EXAM: Vital Signs: temp 36.8, hr 69, rr 16, 97% O2, BP 129/81 General: Awake, alert, in NAD. Cooperative & appropriate throughout duration of exam. HEENT: Atraumatic, normocephalic. Oral mucosa is pink, moist. CV: RRR, no m/g/r appreciated. Resp: Lungs are clear to auscultation bilaterally. Chest rise is symmetric bilaterally. Respirations appear non-labored. GI: Abdomen is soft, non-tender, non-distended, normal bowel sounds. : No Red in place. Skin/Lymph: Skin is warm, dry, pink. MSK: Strength shoulder abduction: L 0/5 R 5/5 elbow flexion: L 0/5 R 5/5 elbow extension L 0/5 R 5/5 hand screw machine operator single spindle L 0/5 R 5/5 Strength hip flexion: L 3/5 R 5/5 foot plantar-flexion: L 3/5 R 5/5 foot dorsi-flexion: L 3/5 R 5/5 Sensation: intact globally b/l UE/LE throughout Neuro: Mental status - Alert, appropriate, and cooperative during examination. Cognition & Comprehension - Able to follow commands. Language - dysarthric CN - I: not tested II: Visual white grossly intact to confrontational testing III, IV, : EOMI, no nystagmus appreciated V: Facial sensation intact & equal bilaterally to light touch. VII: Eyebrow raise symmetric. Slight facial droop VIII: Hearing grossly intact bilaterally to finger rub. IX, X: Uvula midline, palate elevated symmetrically. XI: Shoulder shrug 5/5 on right 1/5 left XII: Tongue protruded to midline. LABS AND IMAGING: Recent Labs Lab Units 12/14/23 0427 WBC K/cumm 8.3 HEMOGLOBIN g/dL 13.6 HEMATOCRIT % 41.8 PLATELETS K/cumm 252 Recent Labs Lab Units 12/14/23 0427 SODIUM mmol/L 138 POTASSIUM PLASMA mmol/L 4.2 CHLORIDE mmol/L 104 CO2 mmol/L 24 ANIONGAP mmol/L 10 GLUCOSE mg/dL 118 BUN SERUM mg/dL 23 CREATININE mg/dL 1.12 CALCIUM mg/dL 9.0 Recent Labs Lab Units 12/14/23 0427 12/13/23 0252 12/12/23 0420 12/11/23 0547 12/10/23 0254 12/09/23 0619 GLUCOSE mg/dL 118 106 [address] Head WO Contrast Result Date: 12/13/2023 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 No acute findings. Atrophy and small vessel disease. Electronically signed by: Beka Draper M.D. CT Head WO Contrast Result Date: 12/08/2023 1. No definitive acute intracranial findings. 2. Chronic microvascular ischemic changes and volume loss. Electronically signed by: Jhonny Smallwood II, D.O. MRI Brain WO Contrast Result Date: 12/08/2023 Acute infarct posterior limb internal capsule right side. Underlying atrophy and small vessel disease. No hemorrhagic changes identified Electronically signed by: Beka Draper M.D. CT Head WO Contrast Result Date: 12/08/2023 Cerebral atrophy and small vessel disease, in keeping with the patient's age. No bleed or mass. Electronically signed by: Cat Sandoval M.D. CTA/CTP Rapid Stroke (C) Result Date: 12/07/[address] evidence of stroke. No significant carotid artery stenosis. There is also of the noncontrast CT of the brain called emergency room physician at 1:10 PM, results of the CT angiogram rapid strokeprogram called to the emergency room physician at 1:30 PM. Electronically signed by: Beka Draper M.D. 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 Impaired mobility, ADLs, transfers, gait, balance, strength, endurance, speech, cognition, swallow PT OT eval NUMEROLOGIST eval Continue aspirin 81mg, rosuvastatin 40mg HTN: no current medications, monitor bp HLD: continue rosuvastatin 40mg AAA: no current medications Hypothyroidism: continue levothyroxine 150mcg GERD: continue pantoprazole 40mg bid Alzheimer: continue donepezil 10mg qhs Depression: no current medications Asthma: continue breo ellipta 100-25 daily BPH: continue flomax 0.4mg qhs Neuropathy: continue gabapentin 300mg tid Pain: Start Tylenol 650mg q6h prn, oxycodone 5mg q4h prn Bowels: Start miralax daily, pericolace bid prn, simethicone prn Nausea: Start Zofran prn, Tums prn Diet: Reg/Thin HH 2G Na DVT ppx: holding lovenox for possible gi bleed Precautions: Fall Weightbearing status: full Code: Full Code STATUS COMPARED TO PRESCREEN: I have reviewed the preadmission screen and there were no significant medical differences between the patient's current status and the preadmission screening evaluation. Functional status will be fully evaluated within the first day. This rehabilitation stay remain reasonable and necessary. NEED FOR INPATIENT REHABILITATION: Inpatient rehab is medically necessary for this patient at this time in order for the patient to receive at least 3 hours of therapy per day, 5 days per week which will allow us to maximize functional gains while we can continually monitor for complications related to the admitting diagnoses as well as other medical comorbidities, which could include infection, pain out of control and limiting participation in therapy, DVT, hypertension/hypotension, falls, or decline in status. Medical necessity: The patient requires an inpatient rehabilitation facility level of care due to active, comorbid medical problems including: -s/p stroke: close monitoring of neurological examination changes due to risk for hemorrhagic transformation and/or cerebral edema, monitoring and emphasis on education to reduce stroke risk factors -Insomnia: close monitoring of sleep/wake cycles, consideration for medication management -Pain: titration of pain medications, monitoring of respiratory drive and arousal, monitoring for side effects such as constipation -Electrolyte monitoring: - Medical management of uncontrolled Hypertension: titration of medications, monitoring of electrolytes. -Mental health: coping strategies, consideration for medications - Coordination of interdisciplinary care in complicated neurologic/medical rehab patient REHABILITATION PLAN: Patient's expected intensity and duration of participation in the interdisciplinary rehabilitation program and disciplines that comprise this team: Therapies required to achieve goals:The patient will benefit from integrated coordination of care from the following interdisciplinary services: Medical Supervision, 24 hours Rehabilitation Nursing, Physical Therapy, Occupational Therapy, Case Management; Social Work; Therapeutic Recreation; SpeechTherapy; Flatwork Feeder Frequency and duration of therapies expect to be:Expected intensity and frequency of participation in the interdisciplinary rehab program is: 3 hours per day except Wednesday. Expected intensity and frequency of Physical Therapy (PT): 1.5 hours per day over 5-7 days for the duration of length of stay Expected intensity and frequency of Occupational Therapy (OT): 1.5 hours per day over 5-7 days per week for the duration of length of stay Expected intensity and frequency of Speech Therapy (NUMEROLOGIST): 1 hour per day per day over 5-7 days per week for the duration of length of stay Positive Predictors/Potential to Benefit: Strengths: Able to tolerate intensive inpatient rehab program; Good family/social support; Good premorbid functional status; Good premorbid medical status; Living in the community premorbidly; Motivated Possible Barriers to Progress/ Discharge:Barriers: Comorbidities; Ability to acquire knowledge (BARRIERS TO DISCHARGE:Confusion, Limited safety awareness, & insight into deficits, Communication deficit, Decreased endurance, sensation, & proprioception, Upper & Lower extremity weak, Bladder Incontinence, Medical complicate,Stairs at Home,Skin Care) We will initiate full inpatient rehab including the following: PM&R to monitor and medically manage the patient's admitting diagnosis and comorbidities. We will monitor and treat the patient's pain appropriately to optimize participation in therapy sessions. Weekly CMP and CBC and as needed to monitor labs. Diagnostic tests/imaging will be ordered as indicated to assess changes in condition or evaluate chronic issues. Rehab Nursing for implementation of rehab plan of care, particularly in regards to bowel, bladder and skin care. Physical Therapy consult to evaluate and treat the patient to increase strength, endurance, and functional mobility. Occupational Therapy consult to evaluate and treat the patient for improving ADLs and other self-care skills and to assess for any potential need for adaptive equipment at discharge. Speech Therapy to evaluate for speech/language and swallowing deficits and treat appropriately. They will also evaluate for higher level cognitive dysfunction and offer appropriate therapies. Nutrition services to optimize patient's nutritional status for recovery given currently increased nutritional requirements due to medical illness and recovery needs. Also, nutrition to offer nutritional education due to patient's medical comorbidities which may alter metabolism and nutritional requirements. REHABILITATION GOALS: Patient's goals are to increase functional independence and mobility and to teach effective and safe ADL's/self-care skills in order for the patient to be able to safely discharge home at a more independent level. REHABILITATION POTENTIAL: Based on the patient's medical and functional status, their prognosis and expected level of functional improvement is: Medical Prognosis: Medical prognosis appears fairly good based on co-morbidities and ongoing medical issues such as: New CVA S/P TNK; Left Hemiparesis; Hypertension; Hyperlipidemia Functional Prognosis: Functional prognosis appears good to recover to a Stand BY level for self-care management, transfers and mobility with utilizing the least restrictive assistive device ESTIMATED LENGTH OF STAY: Estimated Length of Stay in Days: Estimated Length of Stay: 14 days Anticipated Discharge Destination:Discharge Plan after IRF stay: Plan to go home with his and his daughter with Home Health Care PAIN ASSESSMENT: 0/10 This will be addressed with the pain medications as noted and adjustments to the pain regimen will be made as appropriate in order to optimize patient's participation in therapy while minimizing adverse effects related to the drugs. The information for the above history and physical was obtained through review of the patient's medical records in addition to examination on the date of admission. Becky Montana MD Physical Medicine and Rehabilitation ER/WAITRESS CAFETERIA documented in this encounter Consult Notes * Jossie Montalvo PA - 12/29/2023 2:58 PM CDTAssociated Order(s): IP CONSULT TO ORTHOPEDIC SURGERY Images from the original note were not included. Ortho IP Consult Reason for Consult: Left knee pain Requesting Provider: Becky Montana MD Subjective Patient is a 78 y.o. male with chief complaint of left knee pain. HPI: This is a very pleasant 78-year-old male well known to our office for previous treatment of knee and shoulder pain. He has had a right knee replacement done 2 years ago. Patient recently suffered a stroke on 12/07/2023 and is now admitted to rehab for ongoing care. He was actually coming to our office on the day of the stroke to discuss possible left knee replacement surgery. Currently he reportsstiffness and pain in the knee, difficulty with extending and bending. His stroke has left him witha left upper extremity hemiparesis, patient reports he was having weakness in the leg as well afterthe episode but this seems to be improved. We are requested to see him for injection in the left knee as he is not currently able to undergo any surgical intervention. PAST MEDICAL HISTORY He has a past medical history of Acute gastric ulcer without hemorrhage or perforation, Alzheimer'sdementia ([facility]), Asthma, Back pain, Cataract, Closed fracture of left tibial plateau with delayed healing, Closed fracture of right tibial plateau with delayed healing, Closed nondisplaced osteochondral fracture of left patella with delayed healing, Closed osteochondral fracture of patella, right, with delayed healing, subsequent encounter, Clotting disorder ([facility]) ([facility]), Complex tear of medialmeniscus of left knee as current injury, Complex tear of medial meniscus of right knee as current injury, Cramps of lower extremity, Diverticulitis of colon, Easy bruisability, Fatigue, Frequent urina tion, Gastroesophageal reflux disease, Hypothyroidism, Incontinence of urine, Muscle weakness, Osteoarthritis, Peptic ulcer, Seizures ([facility]) (1997), SOB (shortness of breath) on exertion, Subchondral insufficiency fracture of condyle of left femur ([facility]) (), Vertigo, Vision changes, and Visualdisturbance. He has no past medical history of Malignant hyperthermia, Motion sickness, PONV (postoperative nausea and vomiting), or Sleep apnea. PAST SURGICAL HISTORY He has a past surgical history that includes Hernia repair (1979); Cataract extraction, bilateral (Bilateral, 2018); Thyroidectomy (12/27/2019); and Knee arthroscopy (Bilateral). MEDICATIONS HOME MEDICATIONS : Advair HFA 230-21 mcg/actuation inhaler albuterol HFA (PROVENTIL HFA,VENTOLIN HFA,PROAIR HFA) 90 mcg/actuation inhaler azithromycin (ZITHROMAX) 250 mg tablet capsaicin 0.1 % cream cetirizine (ZyrTEC) 10 mg tablet cholecalciferol (VITAMIN D-3) 2000 unit capsule clobetasoL (TEMOVATE) 0.05 % ointment donepeziL (ARICEPT) 10 mg tablet eszopiclone (LUNESTA) 2 mg tablet Flovent HFA 44 mcg/actuation inhaler furosemide (LASIX) 20 mg tablet gabapentin (NEURONTIN) 300 mg capsule levothyroxine (SYNTHROID) 150 mcg tablet lidocaine (ASPERCREME) 4 % adhesive patch,medicated melatonin 10 mg tablet mirtazapine (REMERON) 7.5 mg tablet mupirocin (BACTROBAN) 2 % ointment omeprazole (PriLOSEC) 20 mg capsule oxybutynin XL (DITROPAN-XL) 10 mg 24 hr tablet permethrin (ELIMITE) 5 % cream pravastatin (PRAVACHOL) 10 mg tablet sildenafiL, pulm.hypertension, (REVATIO) 20 mg tablet spironolactone (ALDACTONE) 25 mg tablet tamsulosin (FLOMAX) 0.4 mg extended release capsule tiZANidine (ZANAFLEX) 2 mg tablet triamcinolone (KENALOG) 0.1 % cream turmeric root extract 500 mg capsule zolpidem (AMBIEN) 5 mg tablet ALLERGIES He has no known allergies. SOCIAL HISTORY He reports that he quit smoking about 57 years ago. His smoking use included cigarettes. He startedsmoking about 58 years ago. He has never used smokeless tobacco. He reports current drug use. Drug:Alcohol. Patient reports consuming alcoholic drinks monthly or less, with a daily consumption of 1 or 2 drinks. Patient also reports less than monthly occurrences of consuming 6 or more alcoholic drinks at one occasion. FAMILY HISTORY His family history includes Heart attack in his father, mother, and sister; Heart disease in an other family member; Heart failure in an other family member; Osteoarthritis in an other family member;Osteoporosis in an other family member. REVIEW OF SYSTEMS Review of Systems Constitutional: Negative for chills, fever and weight loss. HENT: Negative for ear discharge and ear pain. Eyes: Negative for blurred vision, double vision and pain. Respiratory: Negative for hemoptysis, shortness of breath, wheezing and stridor. Cardiovascular: Negative for chest pain, palpitations and claudication. Gastrointestinal: Negative for abdominal pain, melena, nausea and vomiting. Genitourinary: Negative for flank pain and hematuria. Musculoskeletal: Positive for joint pain. Negative for falls and neck pain. Skin: Positive for rash. Negative for itching. Neurological: Positive for speech change, seizures and weakness. Negative for sensory change and loss of consciousness. Endo/Heme/Allergies: Negative for polydipsia. Psychiatric/Behavioral: Negative for hallucinations and suicidal ideas. Vitals: 24hr Min/Max: Temp Min: 36.5 ??C (97.7 ??F) Max: 36.8 ??C (98.2 ??F) Pulse Min: 55 Max: 74 BP Min: 120/72 Max: 139/78 Resp Min: 18 Max: 18 SpO2 Min: 91 % Max: 97 % Most Recent : Vitals: 12/28/23 1000 12/28/23 1855 12/29/23 0649 12/29/23 0950 BP: 120/72 139/78 BP Location: Right arm Patient Position: Sitting Sitting Pulse: 55 74 Resp: 18 18 Temp: 36.5 ??C (97.7 ??F) 36.8 ??C (98.2 ??F) TempSrc: Oral Oral SpO2: 98% 97% 91% 95% Weight: Height: I/O last 2 completed shifts: In: 1160 [P.O.:1160] Out: 400 [Urine:400] PHYSICAL EXAM General: Alert and oriented X3, cooperative with exam, slight left-sided facial droop HEENT: moist mucosa, EOMs intact Neck: Supple Lungs: Normal respiratory effort CV: Regular rate and rhythm Abdomen: Soft : Deferred Extremities: Left upper extremity is in a sling. He is able to wiggle his fingers but is not able to move the arm beyond this. Left knee has diffuse soft tissue swelling. 1+ joint effusion. Motion is5-115 degrees. 1+ laxity with valgus testing. Moderate medial joint line tenderness. Compartments of the lower leg are soft nontender. Left foot is warm and well perfused Lab/Radiology/Diagnostic Review: X-rays taken previously of the left knee demonstrates severe osteoarthritis Assessment Present on Admission: Acute CVA (cerebrovascular accident) (HCC) Plan Patient has a long history of left knee arthritis, this has been managed conservatively with injections. He would like to have repeat injection today as he is recovering from a stroke and surgery isnot feasible. Risks and benefits injection were discussed. Under sterile conditions, left knee was injected with 80 mg of Depo-Medrol and 2 cc of 1% lidocaine. This was well tolerated. Hemostasis wasattained at the end the procedure and post injection instructions were given. He may follow up in 3months or as needed. All questions were answered. Thank you for this consultation. LORI Craig Cosigned by George Sepulveda MD at 01/03/2024 8:56 AM CDT * Finn Larosevonne - 12/16/2023 3:00 PM CSTAssociated Order(s): IP CONSULT TO NUTRITION SERVICES NUTRITION ASSESSMENT Nutrition Status: Patient meets criteria for moderate acute malnutrition, reference ASPEN guidelines. Present on Admission: Yes REASON FOR ASSESSMENT: Consult/Referral - New Admit to Rehab. Encounter Date: 12/16/23 3:19 PM Admission Date: 12/15/2023 LOS: 1 days HPI: Patient is a 78 y.o. male with history of GERD, PVD presented to [facility] on 12/07 with sudden left sided weakness. CTH negative. CTA no LVO. He was given tPA. Neurology consulted. 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 Noted to have coffee ground emesis, lovenoxand aspirin held and patient started on IV protonix. No further episodes and aspirin resumed. FOBT negative. Therapy recommending acute rehab prior to return home. 12/08: Ordering Ensure High PRO bid for additional calorie/protein intake. 12/12: Modify ONS Ensure high protein to vanilla flavor only. PO intakes averaging 64%. Malnutrition assessment complete. 12/15: Modify diet to regular to promote PO intakes. Continue Ensure HP vanilla bid. PO intakes avg 40%. Malnutrition re-assessment completed. Objective Past Medical History: Diagnosis Date Acute gastric ulcer without hemorrhage or perforation Ulcer, gastric, acute - (Added by TW Conv) Alzheimer's dementia ([facility]) Asthma Back pain Cataract Closed fracture of left tibial plateau with delayed healing Closed fracture of right tibial plateau with delayed healing Closed nondisplaced osteochondral fracture of left patella with delayed healing Closed osteochondral fracture of patella, right, with delayed healing, subsequent encounter Clotting disorder ([facility]) ([facility]) Complex tear of medial meniscus of left knee as current injury Complex tear of medial meniscus of right knee as current injury Cramps of lower extremity Diverticulitis of colon Easy bruisability Fatigue Frequent urination Gastroesophageal reflux disease GERD Hypothyroidism Incontinence of urine Muscle weakness Osteoarthritis Osteoarthritis Peptic ulcer Peptic ulcer disease Seizures ([facility]) 1997 last seizure in 1997 SOB (shortness of breath) on exertion Subchondral insufficiency fracture of condyle of left femur ([facility]) ([facility]) Vertigo Vision changes Visual disturbance hx of double vision, corrective lenses Past Surgical History: Procedure Laterality Date CATARACT EXTRACTION, BILATERAL Bilateral 2018 HERNIA REPAIR 1979 Hiatal Hernia repair KNEE ARTHROSCOPY Bilateral THYROIDECTOMY 12/27/2019 Social History Tobacco Use Smoking status: Former Current packs/day: 0.00 Types: Cigarettes Start date: 1965 Quit date: 1966 Years since quittin.2 Smokeless tobacco: Never Substance and Sexual Activity Drug use: Yes Types: Alcohol Sexual activity: Defer Alcohol Use: Not At Risk (12/16/2023) AUDIT-C Frequency of Alcohol Consumption: Monthly or less Average Number of Drinks: 1 or 2 Frequency of Binge Drinking: Less than monthly MEDICATION/LAB REVIEW: Scheduled Meds: aspirin, 81 mg, oral, Daily donepeziL, 10 mg, oral, Nightly [Held by Provider] enoxaparin, 40 mg, subcutaneous, Daily-2100 fluticasone furoate-vilanteroL, 1 puff, inhalation, Daily (RT) gabapentin, 300 mg, oral, TID levothyroxine, 150 mcg, oral, Daily - [address], 40 mg, oral, BID polyethylene glycol, 17 g, oral, Daily rosuvastatin, 40 mg, oral, Daily tamsulosin, 0.4 mg, oral, Nightly Continuous Infusions: PRN Meds: acetaminophen albuterol HFA calcium carbonate ofloxacin ondansetron oxyCODONE ramelteon senna-docusate simethicone tiZANidine Recent Labs Lab Units 12/16/23 0411 12/13/23 0252 12/12/23 0420 12/11/23 0547 12/10/23 0254 SODIUM mmol/L 138 < > 138 138 140 POTASSIUM PLASMA mmol/L 4.3 < > 4.8 4.5 4.2 CHLORIDE mmol/L 103 < > 105 104 106 CO2 mmol/L 25 < > 24 25 25 BUN SERUM mg/dL 22 < > 18 19 17 CREATININE mg/dL 1.09 < > 1.14 1.04 1.12 [id number] mL/min/1.73 m2 69 < > 65 73 67 CALCIUM mg/dL 8.9 < > 9.0 9.1 8.8 ALBUMIN g/dL 3.4* -- -- -- -- PHOSPHORUS PLASMA mg/dL -- -- 3.2 3.4 3.2 MAGNESIUM mg/dL -- -- 1.8 1.9 1.9 < > = values in this interval not displayed. Recent Labs Lab Units 12/16/23 04112/14/23 0427 12/13/23 0252 12/12/23 0420 12/11/23 0547 12/10/23 025 GLUCOSE mg/dL 107 118 106 105 116 100 ALT Date Value Ref Range Status 12/16/2023 11 7 - 55 Units/L Final AST Date Value Ref Range Status 12/16/2023 16 10 - 50 Units/L Final Alk phos Date Value Ref Range Status 12/16/2023 116 40 - 130 Units/L Final Lab Results Component Value Date HGBA1C 5.6 12/07/2023 HDL 55 12/08/2023 LDLCALC 110 12/08/2023 CHOL 182 12/08/2023 TRIG 86 12/08/2023 NURSING ASSESSMENT: Last BM Date: 12/14/23 Bowel Sounds (All Quadrants): Active Hood Scale Score: 15 Skin Integrity: Intact Vital Signs BP: 129/86 Temp: 36.7 ??C (98.1 ??F) Pulse: 58 Resp: 16 SpO2: 96 % Intake/Output Summary (Last 24 hours) at 12/16/2023 1519 Last data filed at 12/16/2023 1350 Gross per 24 hour Intake 860 ml Output 100 ml Net 760 ml Adult Malnutrition Scoring Tool (MST) What diet do you follow at home?: regular Have You Recently Lost Weight Without Trying?: No Have you been eating poorly because of a decreased appetite?: Yes Malnutrition Screening Tool (MST) Score: 1 Hunger Screen - Admission Within the past 12 months the food we bought just didn't last and we didn't have money to get more.: Never true Within the past 12 months we worried whether our food would run out before we got money to buy more.: Never true Within the past 12 months, you worried that your food would run out before you got the money to buymore.: Never true Within the past 12 months, the food you bought just didn't last and you didn't have money to get more.: Never true Anthropometrics Weight: 102.1 kg (225 lb) Admission Weight : 102.1 kg Weight Change: -1.36 kg (-3.00 lbs) IBW/kg (Calculated) : 75.3 kg Height: 177.8 cm (5' 10 ) Weight in (lb) to have BMI = 25: 173.9 BMI (Calculated): 32.3 BMI Classification: BMI 30.0 - 34.9 Obese Class I Wt Readings from Last 10 Encounters: 12/15/23 102.1 kg (225 lb) 12/14/23 103.4 kg (228 lb) 12/08/23 103.4 kg (227 lb 15.3 oz) 11/12/23 99.8 kg (220 lb) 11/03/23 99.8 kg (220 lb) 10/10/23 100.9 kg (222 lb 8 oz) 05/18/23 104.3 kg (230 lb) 05/04/23 104.3 kg (230 lb) 03/23/23 105.2 kg (232 lb) 12/03/22 105 kg (231 lb 7.7 oz) ESTIMATED NEEDS: Total Kcal/kg Estimated Needs : 2041.18 Kcal/k. Type of Weight Used for Estimated Kcals: Current Total Protein Estimated Needs (gm): 122.47 Protein Needs Based on g/k.2 Type of Weight Used forEstimated Protein : Current Total Fluid Estimated Needs: 2040. Fluid Needs Based on : 1 ml/kcal Type of Weight Used for Estimated Fluid Needs: Current Dietary Orders (From admission, onward) Start Ordered 12/16/23 1700 Oral Nutrition Supplements (CH) Select Supplement: Ensure High Protein - Vanilla WithBreakfast and Dinner Comments: Vanilla ONLY Question: () Select Supplement: Answer: Ensure High Protein - Vanilla 12/16/23 0843 12/16/23 0844 Adult Diet Regular Diet effective now Question: (CH) Diet type Answer: Regular 12/16/23 0843 Allergies: Reviewed. IMPRESSION: Pt screened for new admit to rehab. Pt sitting in chair. Reports of good appetite. Ate 50% of breakfast before getting full. Reports of continued dislike for hospital food- is not cooked the way thathe prefers (ex wants over easy eggs vs scrambled). RD agreeable to modify diet to regular to allow greater food options and promote PO intakes. Decreased intakes since last assessment- avg 40%. Overall intakes <75% of estimated needs for > 7 days. Updated wt indicates 3 lb wt loss in 1 week (1%, significant per ASPEN criteria). NFPE completed on 12/12 with no significant fat or muscle wastingnoted. Pt meets criteria for moderate protein calorie malnutrition in the context of acute illness.Pt reports consuming Ensure HP vanilla when given the correct flavor. Updated ONS order to specify vanilla only. Pt denies N/V/C/D or chew/swallow problems. Labs reviewed. Meds reviewed. No edema. GI WDL Last BM 12/13. Weights/Vitals Height Weight (LB) Weight (KG) Weight Method 05/18/2023 5' 10 230 lb 104.327 kg 10/10/2023 5' 11 222 lb 8 oz 100.925 kg Standing scale 11/03/2023 5' 11 220 lb 99.791 kg 11/12/2023 5' 11 220 lb 99.791 kg 12/07/2023 5' 10.984 230 lb 104.327 kg EMS stretcher scale 228 lb 103.42 kg Bed scale 12/08/2023 5' 10.984 227 lb 15.3 oz 103.4 kg 5' 10.984 12/09/2023 233 lb 12.8 oz 106.051 kg Bed scale 12/14/2023 5' 11 228 lb 103.42 kg 12/15/2023 5' 10 225 lb 102.059 kg Bed scale ASPEN MALNUTRITION ASSESSMENT: Date of completion: 12/16/23 ASPEN/AND Malnutrition Screening: Acute illness or injury mild/moderate Energy Intake: < 75% energy intake compared to estimated energy needs > 7 days Weight Loss: 1%-2% in 1 week Body Fat: Clinical criteria not met Muscle Mass: Clinical criteria not met Fluid Accumulation: Clinical criteria not met Patient Meets Criteria for Moderate Malnutrition: Yes NUTRITION FOCUSED PHYSICAL EXAM: Completed. 12/13/23 Subcutaneous Fat Loss Orbital Region - Surrounding the Eye: Slightly bulged fat pads Cheek Region - Buccal Fat: Full, round filled-out cheeks Upper Arm Region - Triceps/Biceps: Some depth pinch but not ample Muscle Loss Sikhism Region - Temporalis Muscle: Slight depression Clavicle Bone Region - Pectoralis Major, Deltoid, Trapezius Muscles: Not visible in male, visible but not prominent in female Clavicle and Acromion Bone Region - Deltoid Muscle: Rounded, curves at arm/shoulder/neck Scapular Bone Region - Trapezius, Supraspinus, Infraspinus Muscles: Bones not prominent NUTRITION DIAGNOSIS: Nutrition Diagnosis 1: Protein-Calorie Malnutrition - Moderate Related to: Acute illness/injury Evidenced by: Inadequate energy intake, Weight loss Nutrition Diagnosis 2: Increased nutrient needs (protein) Related to: Increased activity level Evidenced by: Comprehensive rehabilitation therapy INTERVENTION(S): Summary: Initial assessment, Medical food supplement, Modify diet, Encouragement Modify diet to regular to promote adequate PO intakes. Continue Ensure HP-Vanilla bid. GOAL(S): Oral intake to meet 75% estimated nutritional needs by next assessment, Tolerance of medical food supplement by next assessment MONITORING/EVALUATION: Appetite, PO intake, Plan of care, Labs, Weight changes, Supplement tolerance, Stool patterns, Discharge plans Diet Instructions Recommend to eat a generally healthy diet with foods that include a variety of fruits, vegetables, whole-grain breads, low-fat dairy products, beans, lean meats, and fish. Limit fast food, sugary drinks, excess salt, and desserts. Limit sugary drinks like lemonade, regular soda, Gatorade, and sweettea and drink water throughout the day. Call [phone] to speak with a dietitian about any diet related concerns. Additional resources are available online from the Academy of [employer] and [employer]etics at www.eatright.org Nutrition Follow-Up : 12/21/23 Kyra Larose, MS, RD, LD [facility] documented in this encounter Nursing Notes * Owen Hu RN - 01/03/2024 9:40 AM CDT Impression: Patient re-evaluated by SWAT RN due to increase risk for impaired skin integrity. Hood Score: 18. Contributing history includes: AAA, PVD, Anemia, CVA. Skin appears free from Makenna at this time. Plan: Continue pressure prevention orders- Q2 turns, waffle mattress, absorbant pads, and prevalon boots. Goal: Pressure relief. Moisture management. * Owen Hu RN - 12/29/2023 10:08 AM CDT Impression: Patient re-evaluated by SWADOLFO RN due to increase risk for impaired skin integrity. Hood Score: 17. Contributing history includes: AAA, PVD, Anemia, CVA. Skin appears free from Makenna at this time. Plan: Continue pressure prevention orders- Q2 turns, waffle mattress, absorbant pads, and prevalon boots. Goal: Pressure relief. Moisture management. * Owen Hu RN - 12/22/2023 9:35 AM CDT Impression: Patient re-evaluated by SWAT RN due to increase risk for impaired skin integrity. Hood Score: 16. Contributing history includes: AAA, PVD, Anemia, CVA. Skin appears free from Makenna at this time. Plan: Continue pressure prevention orders- Q2 turns, waffle mattress, absorbant pads, and prevalon boots. Goal: Pressure relief. Moisture management. documented in this encounter Miscellaneous Notes * Plan of Care - Nelli Gamez RN - 01/07/2024 10:29 AM CDT Goals: Clinical Goals for the Shift: safety Washer [employer] Patient Centered Goal for Treatment: Increase mobility. Summary: Pt, discharge home accompanied by family. All discharge instructions and paper given to pt. Pt. Was stable upon discharge. Problem: Nutritional Goal: Patient's nutrient intake appropriate for improving, restoring or maintaining nutritional needs Outcome: Adequate for Discharge Problem: Swallowing Goal: Patient's ability to maintain safety and efficiency of swallowing without signs of aspirationwill improve Outcome: Adequate for Discharge Problem: Bowel Elimination Goal: Patient will maintain or return to baseline bowel function Outcome: Adequate for Discharge Goal: Patient will be continent of stool Outcome: Adequate for Discharge Problem: Bladder/Voiding Goal: Patient will be continent of urine Outcome: Adequate for Discharge Problem: Safety Goal: Patient will demonstrate safety requirements appropriate to situation/environment Outcome: Adequate for Discharge Problem: Activity Goal: Patient's ability to tolerate activity will improve Outcome: Adequate for Discharge Problem: Skin Integrity Goal: Patient's skin integrity remains intact Outcome: Adequate for Discharge Goal: Patient will show no evidence of further tissue damage with pressure reduction techniques andpreventative skin care measures Outcome: Adequate for Discharge Problem: Fall Risk Goal: Patient will remain free from falls Outcome: Adequate for Discharge Goal: Patient's ability to state ways to decrease the risk of falls will improve Outcome: Adequate for Discharge Goal: Patient will remain free from injury from falls Outcome: Adequate for Discharge Problem: Discharge Planning Goal: Patient's understanding of discharge needs will improve Outcome: Adequate for Discharge Problem: Lack of Knowledge Goal: Ability to develop a pain control plan will improve Outcome: Adequate for Discharge Problem: Medication Goal: Satisfaction with pain management medication regimen will improve Outcome: Adequate for Discharge Problem: Sensory Goal: Ability to identify factors that increase pain levels will improve while working to decrease the patient's pain levels Outcome: Adequate for Discharge Problem: Coping Goal: Ability to cope will improve Outcome: Adequate for Discharge Problem: Health Behavior Goal: Identification of resources available to assist in meeting health care needs will improve Outcome: Adequate for Discharge * Plan of Care - Nigel Quintanilla RN - 01/07/2024 10:10 AM CDT [facility] Home Health contacted patient at [phone] and line busy, next called [phone] and spokewith patient, he is aware and agreeable to [facility] PT/OT visits, demographics verified, no other agency follows, he is agreeable to initial visit on Wednesday and prefers morning visit, he would prefer to wait until Wednesday but was aware there were no available appointments on Wednesday and was agreeable to Wednesday initial PT visit. * Plan of Care - Felicity Luis MSW - 01/07/2024 9:08 AM CDT [employer]ESS [employer]IST received a call from Carmen with [facility] requesting updates that were due on 01/04. CRUZ providedupdates over the phone and notified Carmen of d/c today with services. Carmen requested d/c summary be faxed to her. [facility]UZ will continue to follow. * Plan of Care - Gurdeep Williamson LPN - 01/06/2024 8:59 PM CDT Goals: Clinical Goals for the Shift: safety Snf Patient Centered Goal for Treatment: Increase mobility. Summary: Problem: Safety Goal: Patient will demonstrate safety requirements appropriate to situation/environment Outcome: Progressing Problem: Activity Goal: Patient's ability to tolerate activity will improve Outcome: Progressing Problem: Fall Risk Goal: Patient will remain free from falls Outcome: Progressing Goal: Patient's ability to state ways to decrease the risk of falls will improve Outcome: Progressing Goal: Patient will remain free from injury from falls Outcome: Progressing Problem: Discharge Planning Goal: Patient's understanding of discharge needs will improve Outcome: Progressing * Plan of Care - Jewels Reeves RN - 01/06/2024 5:11 PM CDT Goals: Clinical Goals for the Shift: vss, safety, comfort [employer] Patient Centered Goal for Treatment: Increase mobility. Summary: Problem: Nutritional Goal: Patient's nutrient intake appropriate for improving, restoring or maintaining nutritional needs 01/06/2024 171 by Jewels Reeves RN Outcome: Progressing 01/06/2024 171 by Jewels Reeves RN Outcome: Not Progressing Problem: Swallowing Goal: Patient's ability to maintain safety and efficiency of swallowing without signs of aspirationwill improve 01/06/2024 171 by Jewels Reeves RN Outcome: Progressing 01/06/2024 171 by Jewels Reeves RN Outcome: Not Progressing Problem: Bowel Elimination Goal: Patient will maintain or return to baseline bowel function 01/06/2024 171 by Jewels Reeves RN Outcome: Progressing 01/06/2024 171 by Jewels Reeves RN Outcome: Not Progressing Goal: Patient will be continent of stool 01/06/2024 171 by Jewels Reeves RN Outcome: Progressing 01/06/2024 171 by Jewels Reeves RN Outcome: Not Progressing Problem: Bladder/Voiding Goal: Patient will be continent of urine 01/06/2024 171 by Jewels Reeves RN Outcome: Progressing 01/06/2024 171 by Jewels Reeves RN Outcome: Not Progressing Problem: Safety Goal: Patient will demonstrate safety requirements appropriate to situation/environment 01/06/2024 171 by Jewels Reeves RN Outcome: Progressing 01/06/2024 171 by Jewels Reeves RN Outcome: Not Progressing Problem: Activity Goal: Patient's ability to tolerate activity will improve 01/06/20241710 by Jewels Reeves RN Outcome: Progressing 01/06/2024 171 by Jewels Reeves RN Outcome: Not Progressing Problem: Skin Integrity Goal: Patient's skin integrity remains intact 01/06/20241710 by Jewels Reeves RN Outcome: Progressing 01/06/2024 1711 by Jewels Reeves RN Outcome: Not Progressing Goal: Patient will show no evidence of further tissue damage with pressure reduction techniques andpreventative skin care measures 01/06/2024 171 by Jewels Reeves RN Outcome: Progressing 01/06/2024 171 by Jewels Reeves RN Outcome: Not Progressing Problem: Fall Risk Goal: Patient will remain free from falls 01/06/2024 171 by Jewels Reeves RN Outcome: Progressing 01/06/2024 171 by Jewels Reeves RN Outcome: Not Progressing Goal: Patient's ability to state ways to decrease the risk of falls will improve 01/06/2024 171 by Jewels Reeves RN Outcome: Progressing 01/06/2024 171 by Jewels Reeves RN Outcome: Not Progressing Goal: Patient will remain free from injury from falls 01/06/2024 171 by Jewels Reeves RN Outcome: Progressing 01/06/2024 171 by Jewels Reeves RN Outcome: Not Progressing Problem: Discharge Planning Goal: Patient's understanding of discharge needs will improve 01/06/2024 171 by Jewels Reeves RN Outcome: Progressing 01/06/2024 171 by Jewels Reeves RN Outcome: Not Progressing Problem: Lack of Knowledge Goal: Ability to develop a pain control plan will improve 01/06/20241710 by Jewels Reeves RN Outcome: Progressing 01/06/2024 171 by Jewels Reeves RN Outcome: Not Progressing Problem: Medication Goal: Satisfaction with pain management medication regimen will improve 01/06/2024 171 by Jewels Reeves RN Outcome: Progressing 01/06/2024 171 by Jewels Reeves RN Outcome: Not Progressing Problem: Sensory Goal: Ability to identify factors that increase pain levels will improve while working to decrease the patient's pain levels 01/06/2024 171 by Jewels Reeves RN Outcome: Progressing 01/06/2024 171 by Jewels Reeves RN Outcome: Not Progressing Problem: Coping Goal: Ability to cope will improve 01/06/2024 171 by Jewels Reeves RN Outcome: Progressing 01/06/2024 171 by Jewels Reeves RN Outcome: Not Progressing Problem: Health Behavior Goal: Identification of resources available to assist in meeting health care needs will improve 01/06/2024 1711 by Jewels Reeves, RN Outcome: Progressing 01/06/2024 1711 by Jewels Reeves, RN Outcome: Not Progressing * Plan of Care - Vanessa Zaman PT - 01/06/2024 4:32 PM CDT Problem: PT Misc Goal: Patient to perform supine to/from sit with SBA Outcome: Completed Goal: Patient to perform sit to/from stand with SBA Outcome: Completed Goal: Patient to perform bed to/from chair with SBA Outcome: Completed Goal: Patient to ambulate 50' using least restrictive device and CGA Outcome: Adequate for Discharge Goal: Patient to propel w/c 150' using rasheed-technique modified independent Outcome: Adequate for Discharge Goal: Patient to perform HEP with SBA Outcome: Completed Goal: Patient to perform 2 steps using appropriate technique and minimal assist Outcome: Completed Goal: Patient and family to attend family training session Outcome: Completed Patient is a 78 yo male with referring diagnosis of CVA. Patient has made significant progress in functional mobility during his rehab stay and is SBA for bed mobility, SBA for transfers using rasheed aide, CGA for gait using rasheed aide 20-25', and propels w/c with SBA. Patient requires MIN assist for curb step using rasheed aide. Due to continued deficits, patient will benefit from d/c home with familysupervision and home health PT * Plan of Care - Felicity Luis MSW - 01/06/2024 1:06 PM CDT ACCESS CONTROL SPECIALIST met with pt and pt's daughter at bedside to provide Team Conference update and discuss discharge. Pt's w/c to be delivered today. Pt is aware of d/c date 01/06 and is agreeable to plan. through [facility] to start 01/08. ACCESS CONTROL SPECIALIST will continue to follow. * Plan of Care - Paresh Prieto SLP - 01/06/2024 11:31 AM CDT Problem: NUMEROLOGIST Misc Goal: NUMEROLOGIST LTG - Misc 1 Description: Patient to perform short term memory tasks using compensatory strategies with 80% accuracy. Outcome: Met Goal: NUMEROLOGIST LTG - Misc 2 Description: Patient to perform functional problem solving/reasoning tasks with 80% accuracy. Outcome: Met Goal: NUMEROLOGIST LTG - Misc 3 Description: Patient to attend to left visual field 80% of the time given 2-3 verbal prompts. Outcome: Met Goal: NUMEROLOGIST LTG - Misc 4 Description: Patient's speech to be 90% intelligible during conversational tasks utilizing compensatory strategies. Outcome: Met * Plan of Katlyn Ratliff RN - 01/06/2024 2:12 AM CDT Goals: Clinical Goals for the Shift: Safety Washer Meat Patient Centered Goal for Treatment: Increase mobility. Summary: Problem: Nutritional Goal: Patient's nutrient intake appropriate for improving, restoring or maintaining nutritional needs Outcome: Progressing Problem: Swallowing Goal: Patient's ability to maintain safety and efficiency of swallowing without signs of aspirationwill improve Outcome: Progressing Problem: Bowel Elimination Goal: Patient will maintain or return to baseline bowel function Outcome: Progressing Goal: Patient will be continent of stool Outcome: Progressing Problem: Bladder/Voiding Goal: Patient will be continent of urine Outcome: Progressing Problem: Safety Goal: Patient will demonstrate safety requirements appropriate to situation/environment Outcome: Progressing Problem: Activity Goal: Patient's ability to tolerate activity will improve Outcome: Progressing Problem: Skin Integrity Goal: Patient's skin integrity remains intact Outcome: Progressing Goal: Patient will show no evidence of further tissue damage with pressure reduction techniques andpreventative skin care measures Outcome: Progressing Problem: Fall Risk Goal: Patient will remain free from falls Outcome: Progressing Goal: Patient's ability to state ways to decrease the risk of falls will improve Outcome: Progressing Goal: Patient will remain free from injury from falls Outcome: Progressing Problem: Discharge Planning Goal: Patient's understanding of discharge needs will improve Outcome: Progressing Problem: Lack of Knowledge Goal: Ability to develop a pain control plan will improve Outcome: Progressing Problem: Medication Goal: Satisfaction with pain management medication regimen will improve Outcome: Progressing Problem: Sensory Goal: Ability to identify factors that increase pain levels will improve while working to decrease the patient's pain levels Outcome: Progressing Problem: Coping Goal: Ability to cope will improve Outcome: Progressing Problem: Health Behavior Goal: Identification of resources available to assist in meeting health care needs will improve Outcome: Progressing * Patient Care Conference - Felicity Luis MSW - 01/05/2024 10:55 AM CDT Images from the original note were not included. Inpatient RehabilitationTeam Conference Note Date: 01/05/2024 Time: 10:55 AM Patient Name: Gunjan Gtz Jr. Date of : 1945 Sex: Male Room/Bed: [facility] [place] [address] Admitting Diagnosis: Acute CVA (cerebrovascular accident) ([facility]) [I63.9] Admit Date/Time: 12/15/2023 2:14 PM Admission Comments: No comment available Rehab Diagnosis:Rehab Diagnosis: CVA- Left Hemiparesis Vitals: 01/05/24 0842 BP: Pulse: Resp: Temp: SpO2: 95% Weight /Nutrition Weight: 97.9 kg (215 lb 14.4 oz) Weight change: Food consistency: Liquid consistency: Bladder and Bowel Accidents/Last BM Liquid Stool Volume (ML) 12/31 1214 0 mL 12/26 1914 0 mL 12/25 1899 0 mL 12/24 193 0 mL 12/22 2011 0 mL Bladder Continence Status 01/010 Incontinent daily 12/31 1215 -- (Comment: continent) 12/30 0800 Incontinent daily 12/26 191 Incontinent daily 12/25 190 Incontinent daily 12/25 0819 Incontinent less than daily 12/24 193 Incontinent daily 12/22 2011 Incontinent daily 12/19 2310 Incontinent daily 12/19 2040 Always incontinent 12/16 0240 Always incontinent 12/15 1999 Always incontinent 12/14 1451 Always incontinent Bowel Continence Status 12/31 1215 Always continent 12/30 08 Always continent 12/26 1914 Always continent 12/25 190 Occassionally incontinent 12/25 0819 Occassionally incontinent 12/24 1930 Always continent 12/24 0756 Occassionally incontinent 12/22 2011 Occassionally incontinent 12/15 1340 Occassionally incontinent 12/15 1999 Occassionally incontinent 12/14 1451 Occassionally incontinent Pressure Ulcers None Patient Active Problem List Diagnosis Date Noted Primary osteoarthritis of left knee 12/29/2023 Moderate malnutrition (CMS/HCC) 12/17/2023 Acute CVA (cerebrovascular accident) ([facility]) 12/07/2023 Infrarenal abdominal aortic aneurysm (AAA) without rupture ([facility]) 11/12/2023 Lung nodule 10/13/2023 Nocturnal cough 10/13/2023 Hiatal hernia 10/13/2023 Upper GI bleed 10/11/2023 Acquired hypothyroidism 10/11/2023 Acute blood loss anemia 10/11/2023 Coffee ground emesis 10/10/2023 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 05/18/2023 Biceps tendinitis of left upper extremity 05/18/2023 Tear of left glenoid labrum 05/18/2023 Hx of total knee replacement, right 12/01/2022 Neuropathy ([facility]) 12/01/2022 Idiopathic peripheral neuropathy Abnormality of gait and mobility Pain due to total right knee replacement ([facility]) ([facility]) 04/28/2022 Hamstring tendinitis of right thigh 04/28/2022 Quadriceps weakness 04/28/2022 Edema 04/04/2020 Intermittent claudication ([facility]) 04/04/2020 Iron deficiency anemia 04/04/2020 Peripheral vascular disease ([facility]) 04/04/2020 Goiter 12/05/2019 Subchondral insufficiency fracture of condyle of left femur ([facility]/HCC) ([facility]) 08/30/2018 Closed fracture of left tibial plateau [...] right 02/01/2018 Skin lesion of breast 02/01/2018 Conference Led by: (Physician Name, Credentials and Specialty): Dr. Becky Miguel MD, PM&R/Physical Medicine and Rehab Team Members Present: Physician Casting Technician: Becky Montana MD Nursing Casting Technician: Lizette Mike RN Social Work Casting Technician: Other (comment) (Felicity Luis LCSW) PT Casting Technician: Kay Aviles PTA OT Casting Technician: Krystle Cruz OT NUMEROLOGIST Casting Technician: Paresh Prieto SLP Patient/Family Present: Patient Present: No Patient's Family Present: No Treatment Goals: Multi-Disciplinary Problems Active Problems Problem: Nutritional Start Date: 12/15/23 Goal Start Date End Date Patient's nutrient intake appropriate for improving, restoring or maintaining nutritional needs 12/15/23 -- Problem: Swallowing Start Date: 12/15/23 Goal Start Date End Date Patient's ability to maintain safety and efficiency of swallowing without signs of aspiration will improve 12/15/23 -- Problem: Bowel Elimination Start Date: 12/15/23 Goal Start Date End Date Patient will maintain or return to baseline bowel function 12/15/23 -- Goal Start Date End Date Patient will be continent of stool 12/15/23 -- Problem: Bladder/Voiding Start Date: 12/15/23 Goal Start Date End Date Patient will be continent of urine 12/15/23 -- Problem: Safety Start Date: 12/15/23 Goal Start Date End Date Patient will demonstrate safety requirements appropriate to situation/environment 12/15/23 -- Problem: Activity Start Date: 12/15/23 Goal Start Date End Date Patient's ability to tolerate activity will improve 12/15/23 -- Problem: Skin Integrity Start Date: 12/15/23 Goal Start Date End Date Patient's skin integrity remains intact 12/15/23 -- Goal Start Date End Date Patient will show no evidence of further tissue damage with pressure reduction techniques and preventative skin care measures 12/15/23 -- Problem: Fall Risk Start Date: 12/15/23 Goal Start Date End Date Patient will remain free from falls 12/15/23 -- Goal Start Date End Date Patient's ability to state ways to decrease the risk of falls will improve 12/15/23 -- Goal Start Date End Date Patient will remain free from injury from falls 12/15/23 -- Problem: Discharge Planning Start Date: 12/15/23 Goal Start Date End Date Patient's understanding of discharge needs will improve 12/15/23 -- Problem: NUMEROLOGIST Misc Start Date: 12/16/23 Goal Start Date End Date [facility] [facility] 12/16/23 -- Goal Details: Patient to perform short term memory tasks using compensatory strategies with 80% accuracy. Goal Start Date End Date [facility] [place] [facility] 12/16/23 -- Goal Details: Patient to perform functional problem solving/reasoning tasks with 80% accuracy. Goal Start Date End Date [facility] 3 12/16/23 -- Goal Details: Patient to attend to left visual field 80% of the time given 2-3 verbal prompts. Goal Start Date End Date [facility] 4 12/16/23 -- Goal Details: Patient's speech to be 90% intelligible during conversational tasks utilizing compensatory strategies. Problem: PT Misc Start Date: 12/16/23 Goal Start Date End Date Patient to perform supine to/from sit with SBA 12/16/23 -- Goal Start Date End Date Patient to perform sit to/from stand with SBA 12/16/23 -- Goal Start Date End Date Patient to perform bed to/from chair with SBA 12/16/23 -- Goal Start Date End Date Patient to ambulate 50' using least restrictive device and CGA 12/16/23 -- Goal Start Date End Date Patient to propel w/c 150' using rasheed-technique modified independent 12/16/23 -- Goal Start Date End Date Patient to perform HEP with SBA 12/16/23 -- Goal Start Date End Date Patient to perform 2 steps using appropriate technique and minimal assist 12/16/23 -- Goal Start Date End Date Patient and family to attend family training session 12/16/23 -- Problem: OT Misc Start Date: 12/16/23 Goal Start Date End Date OT [facility] [place] 12/16/23 -- Goal Details: Patient will complete basic ADL routine including: bathing in shower, LE dressing, footwear, UB dressing, and grooming tasks with min assist and appropriate compensatory strategies. Goal Start Date End Date [facility] 2 12/16/23 -- Goal Details: Patient will complete simulated car transfer using appropriate device with min assist Goal Start Date End Date [facility] 3 12/16/23 -- Goal Details: Patient will complete toileting and toilet transfer with min assist and appropriate device. Goal Start Date End Date [facility] 4 12/16/23 -- Goal Details: Patient will complete functional/meaningful task in standing for 3-5 minutes with minassist for balance one time. Goal Start Date End Date [facility] 5 12/16/23 -- Goal Details: Patient will complete HEP (LUE SROM/RUE AROM) to improve BUE ROM/strength/endurance and ADL participation with min verbal cues 1 time. Goal Start Date End Date [facility] 6 12/16/23 -- Goal Details: Patient family/caregiver will attend one OT session and be aware of discharge needs/plans Goal Start Date End Date [facility] 7 12/16/23 -- Goal Details: Patient will complete medication management for 2-3 prescriptions with 100% accuracy and no additional cues one time. Problem: Lack of Knowledge Start Date: 01/03/24 Goal Start Date End Date Ability to develop a pain control plan will improve 01/03/24 -- Problem: Medication Start Date: 01/03/24 Goal Start Date End Date Satisfaction with pain management medication regimen will improve 01/03/24 -- Problem: Sensory Start Date: 01/03/24 Goal Start Date End Date Ability to identify factors that increase pain levels will improve while working to decrease the patient's pain levels 01/03/24 -- Problem: Coping Start Date: 01/03/24 Goal Start Date End Date Ability to cope will improve 01/03/24 -- Problem: Health Behavior Start Date: 01/03/24 Goal Start Date End Date Identification of resources available to assist in meeting health care needs will improve 01/03/24 -- Current functional status: ADL: OT Functional Mobility: 12/20 Functional transfers: MOD-MAX (12/21/2023 4:00 PM) OT Self Care: 12/20 Bathing: MAX Grooming: MAX UB dress:MOD LB dress: MAX Footwear: MAX Toileting:TOTAL (12/21/2023 4:00 PM) OT Cognition: 12/15 A&O X4 (12/16/2023 4:00 PM) OT Communication: 12/15 WNL (12/16/2023 4:00 PM) Mobility/Transfers: PT Functional Mobility: 01/04/24: Bed Mobility: supine to and from sit from elevated surface and left side as patient reports this is the side he gets up on at home. Patient performed with supervisionassist. Transfers: sit to and and from stand CG assist except one standing attempt patient with posterior left lean and needed to sit back down to regain balance before attempting again. Ambulation: rasheed-aid 15'x1, 18'x1 with generally CG assist, patient with 1 episode of left knee buckling which patient needed min assist to regain balance. Patient with downward gaze, decreased gertrudis, step to gait pattern, decreased heel strike and push off KATELIN, narrow SHANA. Stairs: one step with rasheed-aid and min assist of 1 when descending due to left knee weakness. Wheelchair management & propulsion: using KATELIN LE's and right UE 160'x1 and supervision assist with increased time to complete task. (01/04/2024 12:20 PM) Cognition/Communication/Swallowing: NUMEROLOGIST Cognition: Mild/moderate cognitive deficits in short-term memory, insight, and problem solving/reasoning. Left visual inattention. 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 Home Accessibility: 2 steps in, 17 steps to basement School: n/a Other Issues: n/a Family Education/Participation Family Participation Plan: To be determined Caregiver at Discharge: home with spouse Living Setting at Discharge: Patient expects to be discharged to:: Private residence Therapy needed: Home health aide, PT - home health, OT - home health, Nurse visit Steps: Steps in home?: Yes, Outside of home, Yes, Inside home,Number of steps inside: 17 steps (to the basement),Number of steps outside: 2 steps (from garage or the front) Premorbid DME: Walker (wheeled), Rollator, Cane (single prong), Tub bench Anticipated Discharge Date: 01/07/24 Potential Washer Meat Needs/Follow-up: Potential Washer Meat Needs: Therapies,Community Resources: To be determined Consults/Referrals: Home Health Anticipated Supervision:With HHC v SNF Anticipated Equipment Needs: OT: toilet grab bars, shower chair and shower grab bars PT: wheelchair Strengths to Achieving Rehab Goals: See notes below Barriers to Achieving Rehab Goals: See notes below Medical Barriers: Lizette Mike RN Registered Nurse Nursing Plan of Care Signed Date of Service: 01/05/2024 10:02 AM Signed Goals: Clinical Goals for the Shift: safety Snf Patient Centered Goal for Treatment: Increase mobility Summary: Problem: Nutritional Goal: Patient's nutrient intake appropriate for improving, restoring or maintaining nutritional needs Outcome: Progressing Problem: Swallowing Goal: Patient's ability to maintain safety and efficiency of swallowing without signs of aspirationwill improve Outcome: Progressing Problem: Bowel Elimination Goal: Patient will maintain or return to baseline bowel function Outcome: Progressing Goal: Patient will be continent of stool Outcome: Progressing Problem: Bladder/Voiding Goal: Patient will be continent of urine Outcome: Progressing Problem: Safety Goal: Patient will demonstrate safety requirements appropriate to situation/environment Outcome: Progressing Problem: Activity Goal: Patient's ability to tolerate activity will improve Outcome: Progressing Problem: Skin Integrity Goal: Patient's skin integrity remains intact Outcome: Progressing Goal: Patient will show no evidence of further tissue damage with pressure reduction techniques andpreventative skin care measures Outcome: Progressing Problem: Fall Risk Goal: Patient will remain free from falls Outcome: Progressing Goal: Patient's ability to state ways to decrease the risk of falls will improve Outcome: Progressing Goal: Patient will remain free from injury from falls Outcome: Progressing Problem: Discharge Planning Goal: Patient's understanding of discharge needs will improve Outcome: Progressing Problem: Lack of Knowledge Goal: Ability to develop a pain control plan will improve Outcome: Progressing Problem: Medication Goal: Satisfaction with pain management medication regimen will improve Outcome: Progressing Problem: Sensory Goal: Ability to identify factors that increase pain levels will improve while working to decrease the patient's pain levels Outcome: Progressing Problem: Coping Goal: Ability to cope will improve Outcome: Progressing Problem: Health Behavior Goal: Identification of resources available to assist in meeting health care needs will improve Outcome: Progressing Weekly Team Goals: Kay Aviles PTA Rehabilitation Team Lead Physical Therapy Plan of Care Signed Date of Service: 01/04/2024 4:31 PM Signed Problem: PT Misc Goal: Patient to perform supine to/from sit with SBA Outcome: Progressing Goal: Patient to perform sit to/from stand with SBA Outcome: Progressing Goal: Patient to perform bed to/from chair with SBA Outcome: Progressing Goal: Patient to ambulate 50' using least restrictive device and CGA Outcome: Progressing Goal: Patient to propel w/c 150' using rasheed-technique modified independent Outcome: Progressing Goal: Patient to perform HEP with SBA Outcome: Progressing Goal: Patient to perform 2 steps using appropriate technique and minimal assist Outcome: Progressing Goal: Patient and family to attend family training session Outcome: Progressing Current Functional Status: PT Functional Mobility: 01/04/24: Bed Mobility: supine to and from sit from elevated surface and left side as patient reports this is the side he gets up on at home. Patientperformed with supervision assist. Transfers: sit to and and from stand CG assist except one standing attempt patient with posterior left lean and needed to sit back down to regain balance before attempting again. Ambulation: rasheed-aid 15'x1, 18'x1 with generally CG assist, patient with 1 episode ofleft knee buckling which patient needed min assist to regain balance. Patient with downward gaze, decreased gertrudis, step to gait pattern, decreased heel strike and push off KATELIN, narrow SHANA. Stairs: one step with rasheed-aid and min assist of 1 when descending due to left knee weakness. Wheelchair management & propulsion: using KATELIN LE's and right UE 160'x1 and supervision assist with increased time to complete task. Strengths: able to tolerate inpatient rehab, good premorbid functional status, good premorbid medical status, living in community premorbidly, and motivated Barriers: lack of family/social support, home layout, weakness, limited safety awareness, medical complications, decreased endurance, and impaired balance Overcoming Barriers: strengthening, gait training, transfer training, stair training, balance, and family education Equipment Recommendations: wheelchair I have read and agree with the above documentation, plan of care remains appropriate at this time. Vanessa Zaman, PT 01/05/2024 8:12 AM Ella Carter, NUMEROLOGIST Speech and Language Pathologist Speech Pathology Plan of Care Signed Date of Service: 01/04/2024 1:27 PM Signed Problem: NUMEROLOGIST Misc Goal: NUMEROLOGIST LTG - Misc 1 Description: Patient to perform short term memory tasks using compensatory strategies with 80% accuracy. Outcome: Progressing Goal: NUMEROLOGIST LTG - Misc 2 Description: Patient to perform functional problem solving/reasoning tasks with 80% accuracy. Outcome: Progressing Goal: NUMEROLOGIST LTG - Misc 3 Description: Patient to attend to left visual field 80% of the time given 2-3 verbal prompts. Outcome: Progressing Goal: NUMEROLOGIST LTG - Misc 4 Description: Patient's speech to be 90% intelligible during conversational tasks utilizing compensatory strategies. Outcome: Progressing Rosalia Marinelli, OT Occupational Therapist Occupational Therapy Progress Notes Signed Date of Service: 01/04/2024 11:50 AM Signed Occupational Therapy NOTE / SESSION TYPE: OT ROUNDS UPDATE PATIENT'S NAME: Gunjan Gtz Jr. AGE / SEX: 78 y.o. / male ROOM: [place] [id number] : 1945 DATE: 01/04/24 Multi-Disciplinary Problems (from Occupational Therapy) Active Problems Problem: [place] [facility] [place]: 12/16/23 Goal Start Date Expected End Date End Date [facility] [place] 12/16/23 12/23/23 -- Goal Details: Patient will complete basic ADL routine including: bathing in shower, LE dressing, footwear, UB dressing, and grooming tasks with min assist and appropriate compensatory strategies. Goal Start Date Expected End Date End Date [facility] 12/16/23 12/23/23 -- Goal Details: Patient will complete simulated car transfer using appropriate device with min assist Goal Start Date Expected End Date End Date [facility] 12/16/23 12/23/23 -- Goal Details: Patient will complete toileting and toilet transfer with min assist and appropriate device. Goal Start Date Expected End Date End Date [facility] [place] 12/16/23 12/23/23 -- Goal Details: Patient will complete functional/meaningful task in standing for 3-5 minutes with minassist for balance one time. Goal Start Date Expected End Date End Date OT [facility] 5 12/16/23 12/23/23 -- Goal Details: Patient will complete HEP (LUE SROM/RUE AROM) to improve BUE ROM/strength/endurance and ADL participation with min verbal cues 1 time. Goal Start Date Expected End Date End Date OT [facility] 6 12/16/23 12/23/23 -- Goal Details: Patient family/caregiver will attend one OT session and be aware of discharge needs/plans Goal Start Date Expected End Date End Date OT [facility] 7 12/16/23 12/23/23 -- Goal Details: Patient will complete medication management for 2-3 prescriptions with 100% accuracy and no additional cues one time. Mr. Gtz is making good progress in therapy. They demonstrate good participation and good motivation working towards therapy goals. They are currently completing bathing in shower with max assist. They are min assist for UE dressing utilizing rasheed technique. They are mod assist for LE dressing with max assist for standing components. They are completing footwear with max assist. They are currently completing oral care/grooming tasks in sitting with set up assist. They are receptive to education and training. They are using compensatory strategies/adaptive equipment including rasheed techniques during ADLs. They are using rasheed aide for functional transfers and need min assist for car simulator, min assist for standard toilet and min assist for stand pivot transfers. They need max assist for toileting. They are expected to continue to progress in therapy. They will benefit from continued skilled occupational therapy to work on adaptive ADL strategies, balance, functional transfers, and UEROM/strength to increase independence with daily occupations and lower the burden of care on family/caregivers. STRENGTHS: MOTIVATED, GOOD FAMILY / SOCIAL SUPPORT, ABLE TO TOLERATE INPATIENT REHAB, GOOD PREMORBID FUNCTIONAL STATUS, GOOD PREMORBID MEDICAL STATUS, and LIVING IN THE COMMUNITY PREMORBIDLY BARRIERS: DECREASED ACTIVITY TOLERANCE, DECREASED UE ROM / STRENGTH / COORDINATION, DECREASED MOBILITY, DECREASED BALANCE, and DECREASED VISUAL PERCEPTUAL SKILLS OVERCOMING BARRIERS: ADL/IADL training, functional transfer training, caregiver training PRN, UE HEP, endurance training, AE/durable medical equipment training EQUIPMENT RECOMMENDED FOR DISCHARGE: W/C LAP TRAY, TOILET GRAB BARS, SHOWER CHAIR, and SHOWER GRAB BARS Rosalia Marinelli OT 01/04/24 11:50 AM Clinical Summation since admission: All team members agree and have reviewed barriers with Dr. Everardo Palomo. Barriers include lack of family/social support, home layout, weakness, limited safety awareness, medical complications, decreased endurance, and impaired balance . Overall POC appropriate, plan to move forward with the following treatment changes strengthening,gait training, transfer training, stair training, balance, and family education to overcome barriers. Cosigned by Becky Montana MD at 01/05/2024 2:58 PM CDT Associated attestation - Becky Montnaa MD - 01/05/2024 2:58 PM CDT I was present for the meeting and agree. 01/05/24 Progress: doing well DC Date:Saturday 01/06 with home health PT OT DME: wheelchair * Plan of Care - Lizette Mike RN - 01/05/2024 10:02 AM CDT Goals: Clinical Goals for the Shift: safety [employer] Patient Centered Goal for Treatment: Increase mobility Summary: Problem: Nutritional Goal: Patient's nutrient intake appropriate for improving, restoring or maintaining nutritional needs Outcome: Progressing Problem: Swallowing Goal: Patient's ability to maintain safety and efficiency of swallowing without signs of aspirationwill improve Outcome: Progressing Problem: Bowel Elimination Goal: Patient will maintain or return to baseline bowel function Outcome: Progressing Goal: Patient will be continent of stool Outcome: Progressing Problem: Bladder/Voiding Goal: Patient will be continent of urine Outcome: Progressing Problem: Safety Goal: Patient will demonstrate safety requirements appropriate to situation/environment Outcome: Progressing Problem: Activity Goal: Patient's ability to tolerate activity will improve Outcome: Progressing Problem: Skin Integrity Goal: Patient's skin integrity remains intact Outcome: Progressing Goal: Patient will show no evidence of further tissue damage with pressure reduction techniques andpreventative skin care measures Outcome: Progressing Problem: Fall Risk Goal: Patient will remain free from falls Outcome: Progressing Goal: Patient's ability to state ways to decrease the risk of falls will improve Outcome: Progressing Goal: Patient will remain free from injury from falls Outcome: Progressing Problem: Discharge Planning Goal: Patient's understanding of discharge needs will improve Outcome: Progressing Problem: Lack of Knowledge Goal: Ability to develop a pain control plan will improve Outcome: Progressing Problem: Medication Goal: Satisfaction with pain management medication regimen will improve Outcome: Progressing Problem: Sensory Goal: Ability to identify factors that increase pain levels will improve while working to decrease the patient's pain levels Outcome: Progressing Problem: Coping Goal: Ability to cope will improve Outcome: Progressing Problem: Health Behavior Goal: Identification of resources available to assist in meeting health care needs will improve Outcome: Progressing * Plan of Care - Paresh Prieto SLP - 01/05/2024 9:59 AM CDT Problem: NUMEROLOGIST [facility] [place]al: NUMEROLOGIST [facility] Description: Patient to perform short term memory tasks using compensatory strategies with 80% accuracy. Outcome: Progressing Note: Current Functional Status: NUMEROLOGIST Cognition: Mild/moderate cognitive deficits in short-term memory, insight, and problem solving/reasoning. Left visual inattention. NUMEROLOGIST Communication: Mild dysarthria NUMEROLOGIST Swallowing: Tolerating regular diet with thin liquids Barriers: Cognition Overcoming Barriers: functional memory tasks, compensatory strategies Goal: NUMEROLOGIST [facility] 2 Description: Patient to perform functional problem solving/reasoning tasks with 80% accuracy. Outcome: Progressing Note: Current Functional Status: NUMEROLOGIST Cognition: Mild/moderate cognitive deficits in short-term memory, insight, and problem solving/reasoning. Left visual inattention. NUMEROLOGIST Communication: Mild dysarthria NUMEROLOGIST Swallowing: Tolerating regular diet with thin liquids Barriers: Cognition Overcoming Barriers: Functional problem solving/reasoning tasks, verbal cues Goal: NUMEROLOGIST [facility] [place] [facility] Description: Patient to attend to left visual field 80% of the time given 2-3 verbal prompts. Outcome: Progressing Note: Current Functional Status: NUMEROLOGIST Cognition: Mild/moderate cognitive deficits in short-term memory, insight, and problem solving/reasoning. Left visual inattention. NUMEROLOGIST Communication: Mild dysarthria NUMEROLOGIST Swallowing: Tolerating regular diet with thin liquids Barriers: Left visual inattention Overcoming Barriers: scanning tasks Goal: NUMEROLOGIST [facility] 4 Description: Patient's speech to be 90% intelligible during conversational tasks utilizing compensatory strategies. Outcome: Progressing Note: Current Functional Status: NUMEROLOGIST Cognition: Mild/moderate cognitive deficits in short-term memory, insight, and problem solving/reasoning. Left visual inattention. NUMEROLOGIST Communication: Mild dysarthria NUMEROLOGIST Swallowing: Tolerating regular diet with thin liquids Barriers: Dysarthria Overcoming Barriers: Conversational tasks, compensatory strategies, oral motor exercises * Plan of Care - Gurdeep Williamson LPN - 01/04/2024 8:45 PM CDT Goals: Clinical Goals for the Shift: safety Snf Patient Centered Goal for Treatment: Increase mobility Summary: Problem: Nutritional Goal: Patient's nutrient intake appropriate for improving, restoring or maintaining nutritional needs 01/04/20242044 by Gurdeep Williamson LPN Outcome: Progressing Problem: Bladder/Voiding Goal: Patient will be continent of urine Outcome: Progressing Problem: Safety Goal: Patient will demonstrate safety requirements appropriate to situation/environment 01/04/20242044 by Gurdeep Williamson LPN Outcome: Progressing Problem: Activity Goal: Patient's ability to tolerate activity will improve 01/04/20242044 by Gurdeep Williamson LPN Outcome: Progressing Problem: Skin Integrity Goal: Patient's skin integrity remains intact Outcome: Progressing Goal: Patient will show no evidence of further tissue damage with pressure reduction techniques andpreventative skin care measures Outcome: Progressing Problem: Fall Risk Goal: Patient will remain free from falls 01/04/20242044 by Gurdeep Williamson LPN Outcome: Progressing Goal: Patient's ability to state ways to decrease the risk of falls will improve 01/04/20242044 by Gurdeep Williamson LPN Outcome: Progressing Goal: Patient will remain free from injury from falls 01/04/20242044 by Gurdeep Williamson LPN Outcome: Progressing Problem: Discharge Planning Goal: Patient's understanding of discharge needs will improve 01/04/20242044 by Gurdeep Williamson LPN Outcome: Progressing * Plan of Care - Kay Aviles, DIRECTOR OF RECRUITING - 01/04/2024 4:31 PM CDT Problem: PT Misc Goal: Patient to perform supine to/from sit with SBA Outcome: Progressing Goal: Patient to perform sit to/from stand with SBA Outcome: Progressing Goal: Patient to perform bed to/from chair with SBA Outcome: Progressing Goal: Patient to ambulate 50' using least restrictive device and CGA Outcome: Progressing Goal: Patient to propel w/c 150' using rasheed-technique modified independent Outcome: Progressing Goal: Patient to perform HEP with SBA Outcome: Progressing Goal: Patient to perform 2 steps using appropriate technique and minimal assist Outcome: Progressing Goal: Patient and family to attend family training session Outcome: Progressing Current Functional Status: PT Functional Mobility: 01/04/24: Bed Mobility: supine to and from sit from elevated surface and left side as patient reports this is the side he gets up on at home. Patientperformed with supervision assist. Transfers: sit to and and from stand CG assist except one standing attempt patient with posterior left lean and needed to sit back down to regain balance before attempting again. Ambulation: rasheed-aid 15'x1, 18'x1 with generally CG assist, patient with 1 episode ofleft knee buckling which patient needed min assist to regain balance. Patient with downward gaze, decreased gertrudis, step to gait pattern, decreased heel strike and push off KATELIN, narrow SHANA. Stairs: one step with rasheed-aid and min assist of 1 when descending due to left knee weakness. Wheelchair management & propulsion: using KATELIN LE's and right UE 160'x1 and supervision assist with increased time to complete task. Strengths: able to tolerate inpatient rehab, good premorbid functional status, good premorbid medical status, living in community premorbidly, and motivated Barriers: lack of family/social support, home layout, weakness, limited safety awareness, medical complications, decreased endurance, and impaired balance Overcoming Barriers: strengthening, gait training, transfer training, stair training, balance, and family education Equipment Recommendations: wheelchair I have read and agree with the above documentation, plan of care remains appropriate at this time. Vanessa Zaman, PT 01/05/2024 8:12 AM * Plan of Care - Ella Carter SLP - 01/04/2024 1:27 PM CDT Problem: NUMEROLOGIST Misc Goal: NUMEROLOGIST LTG - Misc 1 Description: Patient to perform short term memory tasks using compensatory strategies with 80% accuracy. Outcome: Progressing Goal: NUMEROLOGIST LTG - Misc 2 Description: Patient to perform functional problem solving/reasoning tasks with 80% accuracy. Outcome: Progressing Goal: NUMEROLOGIST LTG - Misc 3 Description: Patient to attend to left visual field 80% of the time given 2-3 verbal prompts. Outcome: Progressing Goal: NUMEROLOGIST LTG - Misc 4 Description: Patient's speech to be 90% intelligible during conversational tasks utilizing compensatory strategies. Outcome: Progressing * Plan of Care - Gurdeep Williamson LPN - 01/03/2024 8:56 PM CDT Goals: Clinical Goals for the Shift: safety [employer] Patient Centered Goal for Treatment: Increase mobility Summary: Problem: Safety Goal: Patient will demonstrate safety requirements appropriate to situation/environment Outcome: Progressing Problem: Activity Goal: Patient's ability to tolerate activity will improve Outcome: Progressing Problem: Skin Integrity Goal: Patient's skin integrity remains intact Outcome: Progressing Problem: Fall Risk Goal: Patient will remain free from falls Outcome: Progressing Goal: Patient's ability to state ways to decrease the risk of falls will improve Outcome: Progressing Goal: Patient will remain free from injury from falls Outcome: Progressing Problem: Discharge Planning Goal: Patient's understanding of discharge needs will improve Outcome: Progressing * Plan of Care - Felicity Luis MSW - 01/03/2024 4:12 PM CDT ACCESS CONTROL SPECIALIST placed DME referral to [facility] for W/C order. ACCESS CONTROL SPECIALIST will follow up with [facility] DME and continue to follow for discharge planning needs. * ECIN Note - Felicity Luis MSW - 01/03/2024 4:02 PM CDT Patient Information: Patient Header Patient Information Patient Name: GUNJAN GTZ JR. Date of 1945 (78 years) Sex: Male Phone Numbers: Home: , PT Eval and Treat Last 72 Hours PT Evaluation No documentation. PT TREATMENT (last 168 hours) PT Treatment Row Name 12/28/23 1115 Current Functional Status PT Functional Mobility Bed Mobility: sit to supine with min assist for left LE. Supine to sit with contact guard assist. Transfers: sit to stand with contact guard/min assist, stand to sit with contact guard assist with max verbal cues to complete turn before reaching for chair. Transfers wheelchair to recliner chair stand pivot transfer by holding onto chair with min assist. Ambulation: rasheed-aid10'x1, 15'x1 with min assist. Patient with decreased gertrudis, step to gait pattern, decreased left heel strike and push off, narrow SHANA, downward gaze, slight flexed posture at hips, decreased left knee stability with fatigue. Stairs: one step performed 2x: ascending with one handrail and mod assist the first time and min assist the second time. Descending both times with min assist of 1 and CG assist of 1 with decreased left knee stability noted second time. Wheelchair management & propulsion: using right UE and LE 60'x1 and supervision assist with increased time. -KF User Souza (r) = Recorded By, (t) = Taken By, (c) = Cosigned By Initials Name Effective Dates Kay Jama, MARQUEZ 09/11/19 - PT Notes Notes from 01/01/24 through 01/03/24 No notes of this type exist for this encounter. * Plan of Care - Paresh Prieto SLP - 01/03/2024 9:40 AM CDT Problem: NUMEROLOGIST Misc Goal: NUMEROLOGIST LTG - Misc 1 Description: Patient to perform short term memory tasks using compensatory strategies with 80% accuracy. Outcome: Progressing Goal: NUMEROLOGIST LTG - Misc 2 Description: Patient to perform functional problem solving/reasoning tasks with 80% accuracy. Outcome: Progressing Goal: NUMEROLOGIST LTG - Misc 3 Description: Patient to attend to left visual field 80% of the time given 2-3 verbal prompts. Outcome: Progressing Goal: NUMEROLOGIST LTG - Misc 4 Description: Patient's speech to be 90% intelligible during conversational tasks utilizing compensatory strategies. Outcome: Progressing * Plan of Care - Nelli Gamez RN - 01/03/2024 8:59 AM CDT Goals: Clinical Goals for the Shift: safety/comfort Snf Patient Centered Goal for Treatment: Increase mobility Summary: Problem: Nutritional Goal: Patient's nutrient intake appropriate for improving, restoring or maintaining nutritional needs Outcome: Progressing Flowsheets (Taken 12/24/2023 1105 by Gela Gann RN) Patient's nutrient intake appropriate for improving, restoring, or maintaining nutritional needs: Assess nutritional status, identifying any signs and symptoms of altered nutrition Monitor oral nutrient intake, labs, and treatment plans Recommend appropriate diets, oral nutritional supplements and vitamin/mineral supplements Provide specific nutrition education, as appropriate Problem: Bladder/Voiding Goal: Patient will be continent of urine Outcome: Progressing Flowsheets (Taken 12/28/2023 0905 by Lizette Mike RN) Patient will be continent of urine: Discuss and ionitiate bladder program Problem: Safety Goal: Patient will demonstrate safety requirements appropriate to situation/environment Outcome: Progressing Flowsheets (Taken 01/01/2024 2236 by Tasha Brito RN) Patient will demonstrate safety requirements appropriate to situation/environment: Use gait belt during all transfers Lock brakes on wheelchair Problem: Skin Integrity Goal: Patient's skin integrity remains intact Outcome: Progressing Flowsheets (Taken 12/24/2023 1105 by Gela Gann, RN) Patient's skin integrity remains intact: Monitor for areas of redness and/or skin breakdown Assess and document skin integrity Assess and document risk factors for pressure ulcer development Problem: Fall Risk Goal: Patient will remain free from falls Outcome: Progressing Flowsheets (Taken 12/24/2023 1105 by Gela Gann, RN) Patient will remain free from falls: Assess risk factors for falls Collaborate with other disciplines Implement fall prevention measures * Plan of Care - Tasha Brito RN - 01/03/2024 12:16 AM CDT Problem: Medication Goal: Satisfaction with pain management medication regimen will improve Outcome: Progressing Flowsheets (Taken 01/03/2024 0019) Satisfaction with pain management medication regimen will improve: Evaluate medication effects Assess satisfaction with pain management regimen Goals: Clinical Goals for the Shift: safety/comfort Snf Patient Centered Goal for Treatment: Increase mobility Summary: Problem: Medication Goal: Satisfaction with pain management medication regimen will improve Outcome: Progressing Flowsheets (Taken 01/03/2024 0019) Satisfaction with pain management medication regimen will improve: Evaluate medication effects Assess satisfaction with pain management regimen * Plan of Care - Cinthya Watters RN - 01/02/2024 9:43 AM CDT Goals: Clinical Goals for the Shift: safety and stable vs Snf Patient Centered Goal for Treatment: Increase mobility Summary: Problem: Nutritional Goal: Patient's nutrient intake appropriate for improving, restoring or maintaining nutritional needs Outcome: Progressing Problem: Swallowing Goal: Patient's ability to maintain safety and efficiency of swallowing without signs of aspirationwill improve Outcome: Progressing Problem: Bowel Elimination Goal: Patient will maintain or return to baseline bowel function Outcome: Progressing Goal: Patient will be continent of stool Outcome: Progressing Problem: Bladder/Voiding Goal: Patient will be continent of urine Outcome: Progressing Problem: Safety Goal: Patient will demonstrate safety requirements appropriate to situation/environment Outcome: Progressing Problem: Activity Goal: Patient's ability to tolerate activity will improve Outcome: Progressing Problem: Skin Integrity Goal: Patient's skin integrity remains intact Outcome: Progressing Goal: Patient will show no evidence of further tissue damage with pressure reduction techniques andpreventative skin care measures Outcome: Progressing Problem: Fall Risk Goal: Patient will remain free from falls Outcome: Progressing Goal: Patient's ability to state ways to decrease the risk of falls will improve Outcome: Progressing Goal: Patient will remain free from injury from falls Outcome: Progressing Problem: Discharge Planning Goal: Patient's understanding of discharge needs will improve Outcome: Progressing * Plan of Care - Taylor Mahajan RRT - 01/02/2024 7:36 AM CDT Pt received Breo Ellipta. Tolerated well. Continue as ordered. * Plan of Care - Tasha Brito RN - 01/01/2024 10:37 PM CDT Problem: Safety Goal: Patient will demonstrate safety requirements appropriate to situation/environment Outcome: Progressing Flowsheets (Taken 01/01/20242235) Patient will demonstrate safety requirements appropriate to situation/environment: Use gait belt during all transfers Lock brakes on wheelchair Goals: Clinical Goals for the Shift: safety,comfort Snf Patient Centered Goal for Treatment: Increase mobility Summary: Problem: Safety Goal: Patient will demonstrate safety requirements appropriate to situation/environment Outcome: Progressing Flowsheets (Taken 01/01/20242235) Patient will demonstrate safety requirements appropriate to situation/environment: Use gait belt during all transfers Lock brakes on wheelchair Problem: Activity Goal: Patient's ability to tolerate activity will improve Outcome: Progressing Flowsheets (Taken 01/01/20242236) Patient's ability to tolerate activity will improve: Assist with repositioning, as needed Maintain weight bearing status during transfers Encourage independence with self-care activities * Plan of Care - Cinthya Watters RN - 01/01/2024 11:33 AM CDT Goals: Clinical Goals for the Shift: safety and stable vs [employer] Patient Centered Goal for Treatment: Increase mobility Summary: Problem: Nutritional Goal: Patient's nutrient intake appropriate for improving, restoring or maintaining nutritional needs Outcome: Progressing Problem: Swallowing Goal: Patient's ability to maintain safety and efficiency of swallowing without signs of aspirationwill improve Outcome: Progressing Problem: Bowel Elimination Goal: Patient will maintain or return to baseline bowel function Outcome: Progressing Goal: Patient will be continent of stool Outcome: Progressing Problem: Bladder/Voiding Goal: Patient will be continent of urine Outcome: Progressing Problem: Safety Goal: Patient will demonstrate safety requirements appropriate to situation/environment Outcome: Progressing Problem: Activity Goal: Patient's ability to tolerate activity will improve Outcome: Progressing Problem: Skin Integrity Goal: Patient's skin integrity remains intact Outcome: Progressing Goal: Patient will show no evidence of further tissue damage with pressure reduction techniques andpreventative skin care measures Outcome: Progressing Problem: Fall Risk Goal: Patient will remain free from falls Outcome: Progressing Goal: Patient's ability to state ways to decrease the risk of falls will improve Outcome: Progressing Goal: Patient will remain free from injury from falls Outcome: Progressing Problem: Discharge Planning Goal: Patient's understanding of discharge needs will improve Outcome: Progressing * Plan of Care - Tasha Brito RN - 12/31/2023 11:58 PM CDT Problem: Activity Goal: Patient's ability to tolerate activity will improve Outcome: Progressing Flowsheets (Taken 12/24/2023 1105 by Gela Gann, RN) Patient's ability to tolerate activity will improve: Assist with repositioning, as needed Plan scheduling of activities to allow periods of rest Assess response to activities Encourage independence with self-care activities Goals: Clinical Goals for the Shift: safety/comfort [employer] Patient Centered Goal for Treatment: Increase mobility Summary: Problem: Activity Goal: Patient's ability to tolerate activity will improve Outcome: Progressing Flowsheets (Taken 12/24/2023 1105 by Gela Gann, RN) Patient's ability to tolerate activity will improve: Assist with repositioning, as needed Plan scheduling of activities to allow periods of rest Assess response to activities Encourage independence with self-care activities * Plan of Care - Kendra Lopez MSW - 12/31/2023 10:55 AM CDT Jimena to provide pt with private duty info for [employer] [facility]. Sw also made f/u apts with pt's PCP and Dr Sepulveda. Pt only eligible for pain injection in right knee since just had injection in the left knee. Pt's PCP also wants to make sure pt makes his apt, she would also like d/c summaries sent to 's office at [phone]. QUAN Frank,[facility], [facility] [phone] * Plan of Care - Paresh Prieto SLP - 12/31/2023 10:01 AM CDT Problem: NUMEROLOGIST Misc Goal: NUMEROLOGIST LTG - Misc 1 Description: Patient to perform short term memory tasks using compensatory strategies with 80% accuracy. Outcome: Progressing Goal: NUMEROLOGIST LTG - Misc 2 Description: Patient to perform functional problem solving/reasoning tasks with 80% accuracy. Outcome: Progressing Goal: NUMEROLOGIST LTG - Misc 3 Description: Patient to attend to left visual field 80% of the time given 2-3 verbal prompts. Outcome: Progressing Goal: NUMEROLOGIST LTG - Misc 4 Description: Patient's speech to be 90% intelligible during conversational tasks utilizing compensatory strategies. Outcome: Progressing * Plan of Care - Nelli Gamez RN - 12/31/2023 9:19 AM CDT Goals: Clinical Goals for the Shift: safety Snf Patient Centered Goal for Treatment: Increase mobility Summary: Problem: Nutritional Goal: Patient's nutrient intake appropriate for improving, restoring or maintaining nutritional needs Outcome: Progressing Flowsheets (Taken 12/24/2023 110 by Gela Gann RN) Patient's nutrient intake appropriate for improving, restoring, or maintaining nutritional needs: Assess nutritional status, identifying any signs and symptoms of altered nutrition Monitor oral nutrient intake, labs, and treatment plans Recommend appropriate diets, oral nutritional supplements and vitamin/mineral supplements Provide specific nutrition education, as appropriate Problem: Bowel Elimination Goal: Patient will maintain or return to baseline bowel function Outcome: Progressing Flowsheets (Taken 12/24/2023 110 by Gela Gann RN) Patient will maintain or return to baseline bowel function: Monitor amount, characteristics and/or frequency of stool Monitor for signs and symptoms of constipation Goal: Patient will be continent of stool Outcome: Progressing Flowsheets (Taken 12/24/2023 110 by Gela Gann RN) Patient will be continent of stool: Encourage toileting Problem: Safety Goal: Patient will demonstrate safety requirements appropriate to situation/environment Outcome: Progressing Flowsheets (Taken 12/16/2023 1049 by Gela Gann, MAR[facility]) Patient will demonstrate safety requirements appropriate to situation/environment: Lock brakes on wheelchair Use gait belt during all transfers Problem: Activity Goal: Patient's ability to tolerate activity will improve Outcome: Progressing Flowsheets (Taken 12/24/20231104 by Gela Gann, MARAH) Patient's ability to tolerate activity will improve: Assist with repositioning, as needed Plan scheduling of activities to allow periods of rest Assess response to activities Encourage independence with self-care activities Problem: Skin Integrity Goal: Patient's skin integrity remains intact Outcome: Progressing Flowsheets (Taken 12/24/2023 110 by Gela Gann, MARAH) Patient's skin integrity remains intact: Monitor for areas of redness and/or skin breakdown Assess and document skin integrity Assess and document risk factors for pressure ulcer development Problem: Fall Risk Goal: Patient will remain free from falls Outcome: Progressing Flowsheets (Taken 12/24/2023 110 by Gela Gann RN) Patient will remain free from falls: Assess risk factors for falls Collaborate with other disciplines Implement fall prevention measures Problem: Discharge Planning Goal: Patient's understanding of discharge needs will improve Outcome: Progressing Flowsheets (Taken 12/31/2023 0914) Patient's understanding of discharge needs will improve: Discuss Information regarding discharge instructions Identify discharge learning needs (meds, wound care, etc.) * Plan of Care - Gurdeep Williamson LPN - 12/30/2023 9:26 PM CDT Goals: Clinical Goals for the Shift: safety Snf Patient Centered Goal for Treatment: Increase mobility Problem: Safety Goal: Patient will demonstrate safety requirements appropriate to situation/environment Outcome: Progressing Problem: Activity Goal: Patient's ability to tolerate activity will improve Outcome: Progressing Problem: Skin Integrity Goal: Patient's skin integrity remains intact Outcome: Progressing Goal: Patient will show no evidence of further tissue damage with pressure reduction techniques andpreventative skin care measures Outcome: Progressing Problem: Fall Risk Goal: Patient will remain free from falls Outcome: Progressing Goal: Patient's ability to state ways to decrease the risk of falls will improve Outcome: Progressing Goal: Patient will remain free from injury from falls Outcome: Progressing Problem: Discharge Planning Goal: Patient's understanding of discharge needs will improve Outcome: Progressing Summary: * Plan of Care - Kendra Lopez MSW - 12/30/2023 2:34 PM CDT Update: Per Rodger with [employer], [employer] does private duty in the [place] area. Sw left message for them, ph # [phone]. Spoke with pt's spouse regarding d/c plans. Per spouse she is not physically able to help pt out. She also is working outside of the home. Discussed hh and private duty. Per spouse she did get a call from the [facility] care coordination and they make too much money to qualify for assistance. [facility] hhc to start 01/08. Spouse would also like information about equipment pt will need. Jimena left message for Tati with [facility], ph # [phone] ext [phone] and also with Rodger Swartz with [employer], ph # [phone] to see if they are familiar with any private pay [facility] companies in [facility]. QUAN Frank,[facility] [phone] * Plan of Care - Paresh Prieto SLP - 12/30/2023 10:04 AM CDT Problem: NUMEROLOGIST Misc Goal: NUMEROLOGIST LTG - Misc 1 Description: Patient to perform short term memory tasks using compensatory strategies with 80% accuracy. Outcome: Progressing Goal: NUMEROLOGIST LTG - Misc 2 Description: Patient to perform functional problem solving/reasoning tasks with 80% accuracy. Outcome: Progressing Goal: NUMEROLOGIST LTG - Misc 3 Description: Patient to attend to left visual field 80% of the time given 2-3 verbal prompts. Outcome: Progressing Goal: NUMEROLOGIST LTG - Misc 4 Description: Patient's speech to be 90% intelligible during conversational tasks utilizing compensatory strategies. Outcome: Progressing * Plan of Care - Lizette Mike RN - 12/30/2023 8:30 AM CDT Goals: Clinical Goals for the Shift: safety [employer] Patient Centered Goal for Treatment: Increase independence/ mobility. Summary: Problem: Bladder/Voiding Goal: Patient will be continent of urine Outcome: Ongoing Problem: Nutritional Goal: Patient's nutrient intake appropriate for improving, restoring or maintaining nutritional needs Outcome: Progressing Problem: Swallowing Goal: Patient's ability to maintain safety and efficiency of swallowing without signs of aspirationwill improve Outcome: Progressing Problem: Bowel Elimination Goal: Patient will maintain or return to baseline bowel function Outcome: Progressing Goal: Patient will be continent of stool Outcome: Progressing Problem: Safety Goal: Patient will demonstrate safety requirements appropriate to situation/environment Outcome: Progressing Problem: Activity Goal: Patient's ability to tolerate activity will improve Outcome: Progressing Problem: Skin Integrity Goal: Patient's skin integrity remains intact Outcome: Progressing Goal: Patient will show no evidence of further tissue damage with pressure reduction techniques andpreventative skin care measures Outcome: Progressing Problem: Fall Risk Goal: Patient will remain free from falls Outcome: Progressing Goal: Patient's ability to state ways to decrease the risk of falls will improve Outcome: Progressing Goal: Patient will remain free from injury from falls Outcome: Progressing Problem: Discharge Planning Goal: Patient's understanding of discharge needs will improve Outcome: Progressing * Plan of Care - Gurdeep Williamson LPN - 12/29/2023 8:43 PM CDT Goals: Clinical Goals for the Shift: safety Snf Patient Centered Goal for Treatment: Increase independence/ mobility. Summary: Problem: Nutritional Goal: Patient's nutrient intake appropriate for improving, restoring or maintaining nutritional needs Outcome: Progressing Problem: Safety Goal: Patient will demonstrate safety requirements appropriate to situation/environment Outcome: Progressing Problem: Activity Goal: Patient's ability to tolerate activity will improve Outcome: Progressing Problem: Skin Integrity Goal: Patient's skin integrity remains intact Outcome: Progressing Problem: Fall Risk Goal: Patient will remain free from falls Outcome: Progressing Goal: Patient's ability to state ways to decrease the risk of falls will improve Outcome: Progressing Goal: Patient will remain free from injury from falls Outcome: Progressing Problem: Discharge Planning Goal: Patient's understanding of discharge needs will improve Outcome: Progressing * Patient Care Conference - Kendra Lopez MSW - 12/29/2023 9:10 AM CDT Images from the original note were not included. Inpatient RehabilitationTeam Conference Note Date: 12/29/2023 Time: 9:10 AM Patient Name: Gunjan Gtz Jr. Date of : 1945 Sex: Male Room/Bed: [facility]/[id number] Admitting Diagnosis: Acute CVA (cerebrovascular accident) (HCC) [I63.9] Admit Date/Time: 12/15/2023 2:14 PM Admission Comments: No comment available Rehab Diagnosis:Rehab Diagnosis: CVA- Left Hemiparesis Vitals: 12/29/23 0649 BP: 139/78 Pulse: 74 Resp: 18 Temp: 36.8 ??C (98.2 ??F) SpO2: 91% Weight /Nutrition Weight: 90.3 kg (199 lb) Weight change: Food consistency: Liquid consistency: Bladder and Bowel Accidents/Last BM Liquid Stool Volume (ML) 12/26 1914 0 mL 12/25 1899 0 mL 12/24 1929 0 mL 12/22 2011 0 mL Bladder Continence Status 12/26 1914 Incontinent daily 12/25 1899 Incontinent daily 12/25 818 Incontinent less than daily 12/24 193 Incontinent daily 12/22 2011 Incontinent daily 12/19 2310 Incontinent daily 12/19 204 Always incontinent 12/16 0240 Always incontinent 12/15 1999 Always incontinent 12/14 1451 Always incontinent Bowel Continence Status 12/26 1914 Always continent 12/25 1899 Occassionally incontinent 12/25 0819 Occassionally incontinent 12/24 193 Always continent 12/24 0756 Occassionally incontinent 12/22 2011 Occassionally incontinent 12/15 1340 Occassionally incontinent 12/15 1999 Occassionally incontinent 12/14 1451 Occassionally incontinent Pressure Ulcers None Patient Active Problem List Diagnosis Date Noted Moderate malnutrition ([facility]/HCC) 12/17/2023 Acute CVA (cerebrovascular accident) ([facility]) 12/07/2023 Infrarenal abdominal aortic aneurysm (AAA) without rupture ([facility]) 11/12/2023 Lung nodule 10/13/2023 Nocturnal cough 10/13/2023 Hiatal hernia 10/13/2023 Upper GI bleed 10/11/2023 Acquired hypothyroidism 10/11/2023 Acute blood loss anemia 10/11/2023 Coffee ground emesis 10/10/2023 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 05/18/2023 Biceps tendinitis of left upper extremity 05/18/2023 Tear of left glenoid labrum 05/18/2023 Hx of total knee replacement, right 12/01/2022 Neuropathy ([facility]/HCC) 12/01/2022 Idiopathic peripheral neuropathy Abnormality of gait and mobility Pain due to total right knee replacement ([facility]) ([facility]) 04/28/2022 Hamstring tendinitis of right thigh 04/28/2022 Quadriceps weakness 04/28/2022 Edema 04/04/2020 Intermittent claudication ([facility]) 04/04/2020 Iron deficiency anemia 04/04/2020 Peripheral vascular disease ([facility]) 04/04/2020 Goiter 12/05/2019 Subchondral insufficiency fracture of condyle of left femur ([facility]) ([facility]) 08/30/2018 Closed fracture of left tibial plateau [...] right 02/01/2018 Skin lesion of breast 02/01/2018 Conference Led by: (Physician Name, Credentials and Specialty): Dr Becky Palomo MD,PM&R/Physical medicine and Rehabillitation Team Members Present: Physician Casting Technician: Becky Montana MD Nursing Casting Technician: Lizette Mike RN Social Work Casting Technician: Kendra Lopez MSW PT Casting Technician: Other (comment) (Vanessa Zaman PT) OT Casting Technician: Krystle Cruz OT NUMEROLOGIST Casting Technician: Paresh Prieto SLP Patient/Family Present: Patient Present: No Patient's Family Present: No Treatment Goals: Multi-Disciplinary Problems Active Problems Problem: Nutritional Start Date: 12/15/23 Goal Start Date End Date Patient's nutrient intake appropriate for improving, restoring or maintaining nutritional needs 12/15/23 -- Problem: Swallowing Start Date: 12/15/23 Goal Start Date End Date Patient's ability to maintain safety and efficiency of swallowing without signs of aspiration will improve 12/15/23 -- Problem: Bowel Elimination Start Date: 12/15/23 Goal Start Date End Date Patient will maintain or return to baseline bowel function 12/15/23 -- Goal Start Date End Date Patient will be continent of stool 12/15/23 -- Problem: Bladder/Voiding Start Date: 12/15/23 Goal Start Date End Date Patient will be continent of urine 12/15/23 -- Problem: Safety Start Date: 12/15/23 Goal Start Date End Date Patient will demonstrate safety requirements appropriate to situation/environment 12/15/23 -- Problem: Activity Start Date: 12/15/23 Goal Start Date End Date Patient's ability to tolerate activity will improve 12/15/23 -- Problem: Skin Integrity Start Date: 12/15/23 Goal Start Date End Date Patient's skin integrity remains intact 12/15/23 -- Goal Start Date End Date Patient will show no evidence of further tissue damage with pressure reduction techniques and preventative skin care measures 12/15/23 -- Problem: Fall Risk Start Date: 12/15/23 Goal Start Date End Date Patient will remain free from falls 12/15/23 -- Goal Start Date End Date Patient's ability to state ways to decrease the risk of falls will improve 12/15/23 -- Goal Start Date End Date Patient will remain free from injury from falls 12/15/23 -- Problem: Discharge Planning Start Date: 12/15/23 Goal Start Date End Date Patient's understanding of discharge needs will improve 12/15/23 -- Problem: NUMEROLOGIST Mis Start Date: 12/16/23 Goal Start Date End Date [facility] 12/16/23 -- Goal Details: Patient to perform short term memory tasks using compensatory strategies with 80% accuracy. Goal Start Date End Date [facility] 12/16/23 -- Goal Details: Patient to perform functional problem solving/reasoning tasks with 80% accuracy. Goal Start Date End Date [facility] 12/16/23 -- Goal Details: Patient to attend to left visual field 80% of the time given 2-3 verbal prompts. Goal Start Date End Date [facility] 12/16/23 -- Goal Details: Patient's speech to be 90% intelligible during conversational tasks utilizing compensatory strategies. Problem: PT Misc Start Date: 12/16/23 Goal Start Date End Date Patient to perform supine to/from sit with SBA 12/16/23 -- Goal Start Date End Date Patient to perform sit to/from stand with SBA 12/16/23 -- Goal Start Date End Date Patient to perform bed to/from chair with SBA 12/16/23 -- Goal Start Date End Date Patient to ambulate 50' using least restrictive device and CGA 12/16/23 -- Goal Start Date End Date Patient to propel w/c 150' using rasheed-technique modified independent 12/16/23 -- Goal Start Date End Date Patient to perform HEP with SBA 12/16/23 -- Goal Start Date End Date Patient to perform 2 steps using appropriate technique and minimal assist 12/16/23 -- Goal Start Date End Date Patient and family to attend family training session 12/16/23 -- Problem: OT [facility] Start Date: 12/16/23 Goal Start Date End Date [facility] 1 12/16/23 -- Goal Details: Patient will complete basic ADL routine including: bathing in shower, LE dressing, footwear, UB dressing, and grooming tasks with min assist and appropriate compensatory strategies. Goal Start Date End Date [facility] 2 12/16/23 -- Goal Details: Patient will complete simulated car transfer using appropriate device with min assist Goal Start Date End Date [facility] 3 12/16/23 -- Goal Details: Patient will complete toileting and toilet transfer with min assist and appropriate device. Goal Start Date End Date [facility] 4 12/16/23 -- Goal Details: Patient will complete functional/meaningful task in standing for 3-5 minutes with minassist for balance one time. Goal Start Date End Date [facility] 5 12/16/23 -- Goal Details: Patient will complete HEP (LUE SROM/RUE AROM) to improve BUE ROM/strength/endurance and ADL participation with min verbal cues 1 time. Goal Start Date End Date [facility] 6 12/16/23 -- Goal Details: Patient family/caregiver will attend one OT session and be aware of discharge needs/plans Goal Start Date End Date [facility] 7 12/16/23 -- Goal Details: Patient will complete medication management for 2-3 prescriptions with 100% accuracy and no additional cues one time. Current functional status: ADL: OT Functional Mobility: 12/20 Functional transfers: MOD-MAX (12/21/2023 4:00 PM) OT Self Care: 12/20 Bathing: MAX Grooming: MAX UB dress:MOD LB dress: MAX Footwear: MAX Toileting:TOTAL (12/21/2023 4:00 PM) OT Cognition: 12/15 A&O X4 (12/16/2023 4:00 PM) OT Communication: 12/15 WNL (12/16/2023 4:00 PM) Mobility/Transfers: PT Functional Mobility: Bed Mobility: sit to supine with min assist for left LE. Supine to sit withcontact guard assist. Transfers: sit to stand with contact guard/min assist, stand to sit with contact guard assist with max verbal cues to complete turn before reaching for chair. Transfers wheelchair to recliner chair stand pivot transfer by holding onto chair with min assist. Ambulation: rasheed-aid 10'x1, 15'x1 with min assist. Patient with decreased gertrudis, step to gait pattern, decreased leftheel strike and push off, narrow SHANA, downward gaze, slight flexed posture at hips, decreased left knee stability with fatigue. Stairs: one step performed 2x: ascending with one handrail and mod assist the first time and min assist the second time. Descending both times with min assist of 1 and CG assist of 1 with decreased left knee stability noted second time. Wheelchair management & propulsion: using right UE and LE 60'x1 and supervision assist with increased time. (12/28/2023 11:15 AM) Cognition/Communication/Swallowing: NUMEROLOGIST Cognition: Mild/moderate cognitive deficits in short-term memory, insight, and problem solving/reasoning. Left visual inattention. 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 Home Accessibility: 2 steps in, 17 steps to basement School: n/a Other Issues: n/a Family Education/Participation Family Participation Plan: To be determined Caregiver at Discharge: home with spouse Living Setting at Discharge: Patient expects to be discharged to:: Private residence Therapy needed: Home health aide, PT - home health, OT - home health, Nurse visit Steps: Steps in home?: Yes, Outside of home, Yes, Inside home,Number of steps inside: 17 steps (to the basement),Number of steps outside: 2 steps (from garage or the front) Premorbid DME: Walker (wheeled), Rollator, Cane (single prong), Tub bench Anticipated Discharge Date: 01/08/24 Potential [employer]her [employer] Needs/Follow-up: Potential Snf Needs: Therapies,Community Resources: To be determined Consults/Referrals: Home Health Anticipated Supervision:home with hhc vs snf Anticipated Equipment Needs: OT: toilet grab bars, shower chair and shower grab bars PT: wheelchair Strengths to Achieving Rehab Goals: see notes below Barriers to Achieving Rehab Goals: see notes below Medical Barriers: Lizette Mike RN Registered Nurse Nursing Plan of Care Signed Date of Service: 12/29/2023 8:43 AM Signed Goals: Clinical Goals for the Shift: Maintain safe environment and safety with activity. Encourage activity. Snf Patient Centered Goal for Treatment: Increase independence/ mobility. Summary: Problem: Bladder/Voiding Goal: Patient will be continent of urine Outcome: Ongoing Problem: Nutritional Goal: Patient's nutrient intake appropriate for improving, restoring or maintaining nutritional needs Outcome: Progressing Problem: Swallowing Goal: Patient's ability to maintain safety and efficiency of swallowing without signs of aspirationwill improve Outcome: Progressing Problem: Bowel Elimination Goal: Patient will maintain or return to baseline bowel function Outcome: Progressing Goal: Patient will be continent of stool Outcome: Progressing Problem: Safety Goal: Patient will demonstrate safety requirements appropriate to situation/environment Outcome: Progressing Problem: Activity Goal: Patient's ability to tolerate activity will improve Outcome: Progressing Problem: Skin Integrity Goal: Patient's skin integrity remains intact Outcome: Progressing Goal: Patient will show no evidence of further tissue damage with pressure reduction techniques andpreventative skin care measures Outcome: Progressing Problem: Fall Risk Goal: Patient will remain free from falls Outcome: Progressing Goal: Patient's ability to state ways to decrease the risk of falls will improve Outcome: Progressing Goal: Patient will remain free from injury from falls Outcome: Progressing Problem: Discharge Planning Goal: Patient's understanding of discharge needs will improve Outcome: Progressing Weekly Team Goals: Rosalia Marinelli, OT Occupational Therapist Occupational Therapy Progress Notes Signed Date of Service: 12/28/2023 3:28 PM Signed Occupational Therapy NOTE / SESSION TYPE: OT ROUNDS UPDATE PATIENT'S NAME: Gunjan Gtz Jr. AGE / SEX: 78 y.o. / male ROOM: [place] [id number] : 1945 DATE: 12/28/23 Multi-Disciplinary Problems (from Occupational Therapy) Active Problems [place] [facility] [place]: 12/16/23 Goal Start Date Expected End Date End Date [facility] 1 12/16/23 12/23/23 -- Goal Details: Patient will complete basic ADL routine including: bathing in shower, LE dressing, footwear, UB dressing, and grooming tasks with min assist and appropriate compensatory strategies. Goal Start Date Expected End Date End Date [facility] 2 12/16/23 12/23/23 -- Goal Details: Patient will complete simulated car transfer using appropriate device with min assist Goal Start Date Expected End Date End Date [facility] 3 12/16/23 12/23/23 -- Goal Details: Patient will complete toileting and toilet transfer with min assist and appropriate device. Goal Start Date Expected End Date End Date [facility] 4 12/16/23 12/23/23 -- Goal Details: Patient will complete functional/meaningful task in standing for 3-5 minutes with minassist for balance one time. Goal Start Date Expected End Date End Date [facility] 5 12/16/23 12/23/23 -- Goal Details: Patient will complete HEP (LUE SROM/RUE AROM) to improve BUE ROM/strength/endurance and ADL participation with min verbal cues 1 time. Goal Start Date Expected End Date End Date [facility] 6 12/16/23 12/23/23 -- Goal Details: Patient family/caregiver will attend one OT session and be aware of discharge needs/plans Goal Start Date Expected End Date End Date [facility] 7 12/16/23 12/23/23 -- Goal Details: Patient will complete medication management for 2-3 prescriptions with 100% accuracy and no additional cues one time. CURRENT FUNCTIONAL STATUS: Mr. Gtz is making good progress in therapy. They demonstrate good participation and good motivation working towards therapy goals. They are currently completing bathing in shower with max assist. They are min assist for UE dressing utilizing rasheed technique. They are modassist for LE dressing with max assist for standing components. They are completing footwear with max assist. They are currently completing oral care/grooming tasks in sitting with SPV-min assist. They are receptive to education and training. They are using compensatory strategies/adaptive equipment including rasheed techniques during ADLs. They are using rasheed aide for functional transfers and need mod assist for standard toilet and min assist for stand pivot transfers. They need max assist for toileting. All goals have not been addressed due to family training has not been completed yet. They are expected to continue to progress in therapy. They will benefit from continued skilled occupational therapy to work on adaptive ADL strategies, balance, functional transfers, and UE ROM/strength to increase independence with daily occupations and lower the burden of care on family/caregivers. STRENGTHS: MOTIVATED, GOOD FAMILY / SOCIAL SUPPORT, ABLE TO TOLERATE INPATIENT REHAB, GOOD PREMORBID FUNCTIONAL STATUS, GOOD PREMORBID MEDICAL STATUS, and LIVING IN THE COMMUNITY PREMORBIDLY BARRIERS: DECREASED ACTIVITY TOLERANCE, DECREASED UE ROM / STRENGTH / COORDINATION, DECREASED MOBILITY, DECREASED BALANCE, and DECREASED VISUAL PERCEPTUAL SKILLS OVERCOMING BARRIERS: ADL/IADL training, functional transfer training, caregiver training PRN, UE HEP, endurance training, AE/durable medical equipment training EQUIPMENT RECOMMENDED FOR DISCHARGE: TOILET GRAB BARS, SHOWER CHAIR, and SHOWER GRAB BARS Rosalia Marinelli, OLGA 12/28/23 3:29 PM . Kay Aviles PTA Rehabilitation Team Lead Physical Therapy Plan of Care Cosign Needed Date of Service: 12/28/2023 12:43 PM Cosign Needed Problem: PT Misc Goal: Patient to perform supine to/from sit with SBA Outcome: Progressing Note: Min assist to lift left LE onto bed Goal: Patient to perform sit to/from stand with SBA Outcome: Progressing Goal: Patient to perform bed to/from chair with SBA Outcome: Progressing Goal: Patient to ambulate 50' using least restrictive device and CGA Outcome: Progressing Goal: Patient to propel w/c 150' using rasheed-technique modified independent Outcome: Progressing Goal: Patient to perform HEP with SBA Outcome: Progressing Goal: Patient to perform 2 steps using appropriate technique and minimal assist Outcome: Progressing Goal: Patient and family to attend family training session Outcome: Progressing Current Functional Status: PT Functional Mobility: Bed Mobility: sit to supine with min assist for left LE. Supine to sit with contact guard assist. Transfers: sit to stand with contact guard/min assist, stand to sit with contact guard assist with max verbal cues to complete turn before reaching for chair. Transfers wheelchair to recliner chair stand pivot transfer by holding onto chair with min assist. Ambulation: rasheed-aid 10'x1, 15'x1 with min assist. Patient with decreased gertrudis, step to gait pattern, decreased left heel strike and push off, narrow SHANA, downward gaze, slight flexed posture at hips, decreased left knee stability with fatigue. Stairs: one step performed 2x: ascending with one handrail and mod assist the first time and min assist the second time. Descending both times with min assist of 1 and CG assist of 1 with decreased left knee stability noted second time. Wheelchair management & propulsion: using right UE and LE 60'x1 and supervision assist with increased ti me. Strengths: able to tolerate inpatient rehab, good premorbid functional status, good premorbid medical status, living in community premorbidly, and motivated Barriers: Overcoming Barriers: strengthening, gait training, transfer training, balance, and safety education Equipment Recommendations: wheelchair Clinical Summation since admission: All team members agree and have reviewed barriers with Dr. Everardo Palomo. Barriers include DECREASED ACTIVITY TOLERANCE, DECREASED UE ROM / STRENGTH / COORDINATION, DECREASED MOBILITY, DECREASED BALANCE, and DECREASED VISUAL PERCEPTUAL SKILLS. Overall POC appropriate, planto move forward with the following treatment changes ADL/IADL training, functional transfer training, caregiver training PRN, UE HEP, endurance training, AE/durable medical equipment training to overcome barriers. Cosigned by Becky Montana MD at 12/29/2023 2:14 PM CDT Associated attestation - Becky Montana MD - 12/29/2023 2:14 PM CDT I was present for the meeting and agree. 12/29/23 Progress: continues to make slow progress DC Date: Sunday 01/07 with home health PT OT DME: tbd * Plan of Care - Lizette Mike RN - 12/29/2023 8:43 AM CDT Goals: Clinical Goals for the Shift: Maintain safe environment and safety with activity. Encourage activity. Snf Patient Centered Goal for Treatment: Increase independence/ mobility. Summary: Problem: Bladder/Voiding Goal: Patient will be continent of urine Outcome: Ongoing Problem: Nutritional Goal: Patient's nutrient intake appropriate for improving, restoring or maintaining nutritional needs Outcome: Progressing Problem: Swallowing Goal: Patient's ability to maintain safety and efficiency of swallowing without signs of aspirationwill improve Outcome: Progressing Problem: Bowel Elimination Goal: Patient will maintain or return to baseline bowel function Outcome: Progressing Goal: Patient will be continent of stool Outcome: Progressing Problem: Safety Goal: Patient will demonstrate safety requirements appropriate to situation/environment Outcome: Progressing Problem: Activity Goal: Patient's ability to tolerate activity will improve Outcome: Progressing Problem: Skin Integrity Goal: Patient's skin integrity remains intact Outcome: Progressing Goal: Patient will show no evidence of further tissue damage with pressure reduction techniques andpreventative skin care measures Outcome: Progressing Problem: Fall Risk Goal: Patient will remain free from falls Outcome: Progressing Goal: Patient's ability to state ways to decrease the risk of falls will improve Outcome: Progressing Goal: Patient will remain free from injury from falls Outcome: Progressing Problem: Discharge Planning Goal: Patient's understanding of discharge needs will improve Outcome: Progressing * Plan of Care - Katlyn Camarillo RN - 12/29/2023 4:21 AM CDT Goals: Clinical Goals for the Shift: Maintain safe environment and safety with activity. Encourage activity. Snf Patient Centered Goal for Treatment: Increase independence/ mobility. Summary: Problem: Nutritional Goal: Patient's nutrient intake appropriate for improving, restoring or maintaining nutritional needs Outcome: Progressing Problem: Swallowing Goal: Patient's ability to maintain safety and efficiency of swallowing without signs of aspirationwill improve Outcome: Progressing Problem: Bowel Elimination Goal: Patient will maintain or return to baseline bowel function Outcome: Progressing Goal: Patient will be continent of stool Outcome: Progressing Problem: Bladder/Voiding Goal: Patient will be continent of urine Outcome: Progressing Problem: Safety Goal: Patient will demonstrate safety requirements appropriate to situation/environment Outcome: Progressing Problem: Activity Goal: Patient's ability to tolerate activity will improve Outcome: Progressing Problem: Skin Integrity Goal: Patient's skin integrity remains intact Outcome: Progressing Goal: Patient will show no evidence of further tissue damage with pressure reduction techniques andpreventative skin care measures Outcome: Progressing Problem: Fall Risk Goal: Patient will remain free from falls Outcome: Progressing Goal: Patient's ability to state ways to decrease the risk of falls will improve Outcome: Progressing Goal: Patient will remain free from injury from falls Outcome: Progressing Problem: Discharge Planning Goal: Patient's understanding of discharge needs will improve Outcome: Progressing * Plan of Care - Kay Aviles PTA - 12/28/2023 12:43 PM CDT Problem: PT Misc Goal: Patient to perform supine to/from sit with SBA Outcome: Progressing Note: Min assist to lift left LE onto bed Goal: Patient to perform sit to/from stand with SBA Outcome: Progressing Goal: Patient to perform bed to/from chair with SBA Outcome: Progressing Goal: Patient to ambulate 50' using least restrictive device and CGA Outcome: Progressing Goal: Patient to propel w/c 150' using rasheed-technique modified independent Outcome: Progressing Goal: Patient to perform HEP with SBA Outcome: Progressing Goal: Patient to perform 2 steps using appropriate technique and minimal assist Outcome: Progressing Goal: Patient and family to attend family training session Outcome: Progressing Current Functional Status: PT Functional Mobility: Bed Mobility: sit to supine with min assist for left LE. Supine to sit with contact guard assist. Transfers: sit to stand with contact guard/min assist, stand to sit with contact guard assist with max verbal cues to complete turn before reaching for chair. Transfers wheelchair to recliner chair stand pivot transfer by holding onto chair with min assist. Ambulation: rasheed-aid 10'x1, 15'x1 with min assist. Patient with decreased gertrudis, step to gait pattern, decreased left heel strike and push off, narrow SHANA, downward gaze, slight flexed posture at hips, decreased left knee stability with fatigue. Stairs: one step performed 2x: ascending with one handrail and mod assist the first time and min assist the second time. Descending both times with min assist of 1 and CG assist of 1 with decreased left knee stability noted second time. Wheelchair management & propulsion: using right UE and LE 60'x1 and supervision assist with increased ti me. Strengths: able to tolerate inpatient rehab, good premorbid functional status, good premorbid medical status, living in community premorbidly, and motivated Barriers: lack of family/social support, home layout, cognitive impairment, weakness, limited safety awareness, pain, medical complications, decreased endurance, and impaired balance Overcoming Barriers: strengthening, gait training, transfer training, balance, and safety education Equipment Recommendations: wheelchair I have read and agree with the above documentation, plan of care remains appropriate at this time. Vanessa Zaman, PT 12/29/2023 9:41 AM * Plan of Care - Ella Carter SLP - 12/28/2023 9:20 AM CDT Problem: NUMEROLOGIST Misc Goal: NUMEROLOGIST LTG - Misc 1 Description: Patient to perform short term memory tasks using compensatory strategies with 80% accuracy. Outcome: Progressing Current Functional Status: NUMEROLOGIST Cognition: Mild/moderate cognitive deficits in short-term memory, insight, and problem solving/reasoning. Left visual inattention. NUMEROLOGIST Communication: Mild dysarthria NUMEROLOGIST Swallowing: Tolerating regular diet with thin liquids Barriers: Cognition Overcoming Barriers: Compensatory strategies, verbal cues, functional memory/problem solving tasks Goal: NUMEROLOGIST LTG - Misc 2 Description: Patient to perform functional problem solving/reasoning tasks with 80% accuracy. Outcome: Progressing Current Functional Status: NUMEROLOGIST Cognition: Mild/moderate cognitive deficits in short-term memory, insight, and problem solving/reasoning. Left visual inattention. NUMEROLOGIST Communication: Mild dysarthria NUMEROLOGIST Swallowing: Tolerating regular diet with thin liquids Barriers: Cognition Overcoming Barriers: Compensatory strategies, verbal cues, functional memory/problem solving tasks Goal: NUMEROLOGIST [facility] 3 Description: Patient to attend to left visual field 80% of the time given 2-3 verbal prompts. Outcome: Progressing Current Functional Status: NUMEROLOGIST Cognition: Mild/moderate cognitive deficits in short-term memory, insight, and problem solving/reasoning. Left visual inattention. NUMEROLOGIST Communication: Mild dysarthria NUMEROLOGIST Swallowing: Tolerating regular diet with thin liquids Barriers: Cognition, Neglect Overcoming Barriers: Scanning tasks, compensatory strategies Goal: NUMEROLOGIST [facility] 4 Description: Patient's speech to be 90% intelligible during conversational tasks utilizing compensatory strategies. Outcome: Progressing Current Functional Status: NUMEROLOGIST Cognition: Mild/moderate cognitive deficits in short-term memory, insight, and problem solving/reasoning. Left visual inattention. NUMEROLOGIST Communication: Mild dysarthria NUMEROLOGIST Swallowing: Tolerating regular diet with thin liquids Barriers: Dysarthria Overcoming Barriers: compensatory strategies, conversational tasks * Plan of Care - Lizette Mike RN - 12/28/2023 9:05 AM CDT Goals: Clinical Goals for the Shift: Vss, Safety, Pain control, Rest Washer [employer] Patient Centered Goal for Treatment: increase mobility/independence Summary: Problem: Bladder/Voiding Goal: Patient will be continent of urine Outcome: Ongoing Flowsheets (Taken 12/28/2023 0905) Patient will be continent of urine: Discuss and ionitiate bladder program Note: Pt with incontinence at home at baseline Problem: Nutritional Goal: Patient's nutrient intake appropriate for improving, restoring or maintaining nutritional needs Outcome: Progressing Problem: Swallowing Goal: Patient's ability to maintain safety and efficiency of swallowing without signs of aspirationwill improve Outcome: Progressing Problem: Bowel Elimination Goal: Patient will maintain or return to baseline bowel function Outcome: Progressing Goal: Patient will be continent of stool Outcome: Progressing Problem: Safety Goal: Patient will demonstrate safety requirements appropriate to situation/environment Outcome: Progressing Problem: Activity Goal: Patient's ability to tolerate activity will improve Outcome: Progressing Problem: Skin Integrity Goal: Patient's skin integrity remains intact Outcome: Progressing Goal: Patient will show no evidence of further tissue damage with pressure reduction techniques andpreventative skin care measures Outcome: Progressing Problem: Fall Risk Goal: Patient will remain free from falls Outcome: Progressing Goal: Patient's ability to state ways to decrease the risk of falls will improve Outcome: Progressing Goal: Patient will remain free from injury from falls Outcome: Progressing Problem: Discharge Planning Goal: Patient's understanding of discharge needs will improve Outcome: Progressing * Plan of Care - Lianet Reyna - 12/27/2023 8:03 PM CDT Problem: Nutritional Goal: Patient's nutrient intake appropriate for improving, restoring or maintaining nutritional needs Outcome: Ongoing Problem: Swallowing Goal: Patient's ability to maintain safety and efficiency of swallowing without signs of aspirationwill improve Outcome: Ongoing Problem: Bowel Elimination Goal: Patient will maintain or return to baseline bowel function Outcome: Ongoing Goal: Patient will be continent of stool Outcome: Ongoing Problem: Bladder/Voiding Goal: Patient will be continent of urine Outcome: Ongoing Problem: Safety Goal: Patient will demonstrate safety requirements appropriate to situation/environment Outcome: Ongoing Problem: Activity Goal: Patient's ability to tolerate activity will improve Outcome: Ongoing Problem: Skin Integrity Goal: Patient's skin integrity remains intact Outcome: Ongoing Goal: Patient will show no evidence of further tissue damage with pressure reduction techniques andpreventative skin care measures Outcome: Ongoing Problem: Fall Risk Goal: Patient will remain free from falls Outcome: Ongoing Goal: Patient's ability to state ways to decrease the risk of falls will improve Outcome: Ongoing Goal: Patient will remain free from injury from falls Outcome: Ongoing Problem: Discharge Planning Goal: Patient's understanding of discharge needs will improve Outcome: Ongoing Goals: Clinical Goals for the Shift: Vss, Safety, Pain control, Rest Washer [employer] Patient Centered Goal for Treatment: increase mobility/independence * Plan of Care - Gela Gann RN - 12/27/2023 3:07 PM CDT Problem: Nutritional Goal: Patient's nutrient intake appropriate for improving, restoring or maintaining nutritional needs Outcome: Progressing Flowsheets (Taken 12/24/2023 110) Patient's nutrient intake appropriate for improving, restoring, or maintaining nutritional needs: Assess nutritional status, identifying any signs and symptoms of altered nutrition Monitor oral nutrient intake, labs, and treatment plans Recommend appropriate diets, oral nutritional supplements and vitamin/mineral supplements Provide specific nutrition education, as appropriate Problem: Swallowing Goal: Patient's ability to maintain safety and efficiency of swallowing without signs of aspirationwill improve Outcome: Progressing Flowsheets (Taken 12/24/2023 1105) Patient's ability to maintain safety and effiency of swallowing without signs of aspiration will improve: Monitor signs and symptoms of aspiration Assist with eating, as needed Provide adequate time for eating Provide appropriate consistency, texture and type of food to avoid choking Problem: Bowel Elimination Goal: Patient will maintain or return to baseline bowel function Outcome: Progressing Flowsheets (Taken 12/24/2023 110) Patient will maintain or return to baseline bowel function: Monitor amount, characteristics and/or frequency of stool Monitor for signs and symptoms of constipation Goal: Patient will be continent of stool Outcome: Progressing Flowsheets (Taken 12/24/2023 110) Patient will be continent of stool: Encourage toileting Problem: Bladder/Voiding Goal: Patient will be continent of urine Outcome: Progressing Flowsheets (Taken 12/24/2023 110) Patient will be continent of urine: Encourage toileting Monitor intake and output Problem: Safety Goal: Patient will demonstrate safety requirements appropriate to situation/environment Outcome: Progressing Flowsheets (Taken 12/16/2023 1049) Patient will demonstrate safety requirements appropriate to situation/environment: Lock brakes on wheelchair Use gait belt during all transfers Problem: Activity Goal: Patient's ability to tolerate activity will improve Outcome: Progressing Flowsheets (Taken 12/24/2023 1105) Patient's ability to tolerate activity will improve: Assist with repositioning, as needed Plan scheduling of activities to allow periods of rest Assess response to activities Encourage independence with self-care activities Problem: Skin Integrity Goal: Patient's skin integrity remains intact Outcome: Progressing Flowsheets (Taken 12/24/2023 1105) Patient's skin integrity remains intact: Monitor for areas of redness and/or skin breakdown Assess and document skin integrity Assess and document risk factors for pressure ulcer development Goal: Patient will show no evidence of further tissue damage with pressure reduction techniques andpreventative skin care measures Outcome: Progressing Flowsheets (Taken 12/24/2023 1105) Patient will show no evidence of further tissue damage with pressure reduction techniques and preventative skin care measures: Use precautions to protect skin integrity Provide pressure-redistribution chair cushion Float heels off surface Problem: Fall Risk Goal: Patient will remain free from falls Outcome: Progressing Flowsheets (Taken 12/24/2023 1105) Patient will remain free from falls: Assess risk factors for falls Collaborate with other disciplines Implement fall prevention measures Goal: Patient's ability to state ways to decrease the risk of falls will improve Outcome: Progressing Goal: Patient will remain free from injury from falls Outcome: Progressing Problem: Discharge Planning Goal: Patient's understanding of discharge needs will improve Outcome: Progressing Goals: Clinical Goals for the Shift: Safety/comfort Snf Patient Centered Goal for Treatment: increase mobility/independence Summary: Patient safety maintained and comfort monitored * Plan of Care - Kendra Lopez MSW - 12/27/2023 10:02 AM CDT Update: [facility] Sw met with pt per his request. Pt is inquiring about help at home upon d/c. Pt asking about hhc through [facility]icaid and the [facility]. Per pt he doesn't currently receive services from the [facility] but is ok with referral to [facility] care [facility]. Pt doesn't think he has medicaid. Per pt he doesn't think spouse will give up either of her jobs. Pt not sure if he will have family assist, depends how he is doing closer to d/c. Sw to make referral to [facility] care coordination. QUAN Frank,СВЕТЛАНА-JIMENA, [facility] [phone] * Plan of Care - Ella aCrter, MONA - 12/27/2023 9:19 AM CDT Problem: NUMEROLOGIST Misc Goal: NUMEROLOGIST LTG - Misc 1 Description: Patient to perform short term memory tasks using compensatory strategies with 80% accuracy. Outcome: Progressing Goal: NUMEROLOGIST LTG - Misc 2 Description: Patient to perform functional problem solving/reasoning tasks with 80% accuracy. Outcome: Progressing Goal: NUMEROLOGIST LTG - Misc 3 Description: Patient to attend to left visual field 80% of the time given 2-3 verbal prompts. Outcome: Progressing Goal: NUMEROLOGIST LTG - Misc 4 Description: Patient's speech to be 90% intelligible during conversational tasks utilizing compensatory strategies. Outcome: Progressing * Plan of Care - Lianet Reyna - 12/26/2023 7:58 PM CDT Problem: Nutritional Goal: Patient's nutrient intake appropriate for improving, restoring or maintaining nutritional needs Outcome: Ongoing Problem: Swallowing Goal: Patient's ability to maintain safety and efficiency of swallowing without signs of aspirationwill improve Outcome: Ongoing Problem: Bowel Elimination Goal: Patient will maintain or return to baseline bowel function Outcome: Ongoing Goal: Patient will be continent of stool Outcome: Ongoing Problem: Bladder/Voiding Goal: Patient will be continent of urine Outcome: Ongoing Problem: Safety Goal: Patient will demonstrate safety requirements appropriate to situation/environment Outcome: Ongoing Problem: Activity Goal: Patient's ability to tolerate activity will improve Outcome: Ongoing Problem: Skin Integrity Goal: Patient's skin integrity remains intact Outcome: Ongoing Goal: Patient will show no evidence of further tissue damage with pressure reduction techniques andpreventative skin care measures Outcome: Ongoing Problem: Fall Risk Goal: Patient will remain free from falls Outcome: Ongoing Goal: Patient's ability to state ways to decrease the risk of falls will improve Outcome: Ongoing Goal: Patient will remain free from injury from falls Outcome: Ongoing Problem: Discharge Planning Goal: Patient's understanding of discharge needs will improve Outcome: Ongoing Goals: Clinical Goals for the Shift: VSS, Safety, Rest Snf Patient Centered Goal for Treatment: increase mobility/independence * Plan of Care - Lyn Clark RN - 12/26/2023 4:13 PM CDT Problem: Nutritional Goal: Patient's nutrient intake appropriate for improving, restoring or maintaining nutritional needs Outcome: Ongoing Problem: Swallowing Goal: Patient's ability to maintain safety and efficiency of swallowing without signs of aspirationwill improve Outcome: Ongoing Problem: Bowel Elimination Goal: Patient will maintain or return to baseline bowel function Outcome: Ongoing Goal: Patient will be continent of stool Outcome: Ongoing Problem: Bladder/Voiding Goal: Patient will be continent of urine Outcome: Ongoing Problem: Safety Goal: Patient will demonstrate safety requirements appropriate to situation/environment Outcome: Ongoing Problem: Activity Goal: Patient's ability to tolerate activity will improve Outcome: Ongoing Problem: Skin Integrity Goal: Patient's skin integrity remains intact Outcome: Ongoing Goal: Patient will show no evidence of further tissue damage with pressure reduction techniques andpreventative skin care measures Outcome: Ongoing Problem: Fall Risk Goal: Patient will remain free from falls Outcome: Ongoing Goal: Patient's ability to state ways to decrease the risk of falls will improve Outcome: Ongoing Goal: Patient will remain free from injury from falls Outcome: Ongoing Problem: Discharge Planning Goal: Patient's understanding of discharge needs will improve Outcome: Ongoing Goals: Clinical Goals for the Shift: Safety/comfort [employer] Patient Centered Goal for Treatment: increase mobility/independence Summary: VSS. A & O x 4. Denies pain at this time. No difficulties voiding. Passing flatus. Miralax administered. Showered today. No further needs, questions and concerns at this time. * Plan of Care - Lianet Reyna - 12/25/2023 10:57 PM CDT Problem: Nutritional Goal: Patient's nutrient intake appropriate for improving, restoring or maintaining nutritional needs Outcome: Ongoing Problem: Swallowing Goal: Patient's ability to maintain safety and efficiency of swallowing without signs of aspirationwill improve Outcome: Ongoing Problem: Bowel Elimination Goal: Patient will maintain or return to baseline bowel function Outcome: Ongoing Goal: Patient will be continent of stool Outcome: Ongoing Problem: Bladder/Voiding Goal: Patient will be continent of urine Outcome: Ongoing Problem: Safety Goal: Patient will demonstrate safety requirements appropriate to situation/environment Outcome: Ongoing Problem: Activity Goal: Patient's ability to tolerate activity will improve Outcome: Ongoing Problem: Skin Integrity Goal: Patient's skin integrity remains intact Outcome: Ongoing Goal: Patient will show no evidence of further tissue damage with pressure reduction techniques andpreventative skin care measures Outcome: Ongoing Problem: Fall Risk Goal: Patient will remain free from falls Outcome: Ongoing Goal: Patient's ability to state ways to decrease the risk of falls will improve Outcome: Ongoing Goal: Patient will remain free from injury from falls Outcome: Ongoing Problem: Discharge Planning Goal: Patient's understanding of discharge needs will improve Outcome: Ongoing Goals: Clinical Goals for the Shift: VSS, Safety Snf Patient Centered Goal for Treatment: increase mobility and independence * Plan of Care - Lyn Clark RN - 12/25/2023 4:50 PM CDT Problem: Nutritional Goal: Patient's nutrient intake appropriate for improving, restoring or maintaining nutritional needs Outcome: Progressing Problem: Swallowing Goal: Patient's ability to maintain safety and efficiency of swallowing without signs of aspirationwill improve Outcome: Progressing Problem: Bowel Elimination Goal: Patient will maintain or return to baseline bowel function Outcome: Progressing Goal: Patient will be continent of stool Outcome: Progressing Problem: Bladder/Voiding Goal: Patient will be continent of urine Outcome: Progressing Problem: Safety Goal: Patient will demonstrate safety requirements appropriate to situation/environment Outcome: Progressing Problem: Activity Goal: Patient's ability to tolerate activity will improve Outcome: Progressing Problem: Skin Integrity Goal: Patient's skin integrity remains intact Outcome: Progressing Goal: Patient will show no evidence of further tissue damage with pressure reduction techniques andpreventative skin care measures Outcome: Progressing Problem: Fall Risk Goal: Patient will remain free from falls Outcome: Progressing Goal: Patient's ability to state ways to decrease the risk of falls will improve Outcome: Progressing Goal: Patient will remain free from injury from falls Outcome: Progressing Problem: Discharge Planning Goal: Patient's understanding of discharge needs will improve Outcome: Progressing Goals: Clinical Goals for the Shift: safety/comfort [employer] Patient Centered Goal for Treatment: increase mobility and independence Summary: VSS. A & O x 4. Denies pain at this time. No difficulties voiding. Passing flatus. Miralax administered. No further needs, questions and concerns at this time. * Plan of Care - Tasha Brito RN - 12/24/2023 10:31 PM CDT Problem: Safety Goal: Patient will demonstrate safety requirements appropriate to situation/environment Outcome: Progressing Flowsheets (Taken 12/16/2023 1049 by Gela Gann RN) Patient will demonstrate safety requirements appropriate to situation/environment: Lock brakes on wheelchair Use gait belt during all transfers Problem: Activity Goal: Patient's ability to tolerate activity will improve Outcome: Progressing Flowsheets (Taken 12/24/2023 1105 by Gela Gann RN) Patient's ability to tolerate activity will improve: Assist with repositioning, as needed Plan scheduling of activities to allow periods of rest Assess response to activities Encourage independence with self-care activities Goals: Clinical Goals for the Shift: safety/comfort Summary: Assist with transfers and voices needs without difficulty . * Plan of Care - Paresh Prieto SLP - 12/24/2023 12:55 PM CDT Problem: NUMEROLOGIST Misc Goal: NUMEROLOGIST LTG - Misc 1 Description: Patient to perform short term memory tasks using compensatory strategies with 80% accuracy. Outcome: Progressing Goal: NUMEROLOGIST LTG - Misc 2 Description: Patient to perform functional problem solving/reasoning tasks with 80% accuracy. Outcome: Progressing Goal: NUMEROLOGIST LTG - Misc 3 Description: Patient to attend to left visual field 80% of the time given 2-3 verbal prompts. Outcome: Progressing Goal: NUMEROLOGIST LTG - Misc 4 Description: Patient's speech to be 90% intelligible during conversational tasks utilizing compensatory strategies. Outcome: Progressing * Plan of Care - Gela Gann RN - 12/24/2023 11:09 AM CDT Problem: Nutritional Goal: Patient's nutrient intake appropriate for improving, restoring or maintaining nutritional needs Outcome: Progressing Flowsheets (Taken 12/24/2023 110) Patient's nutrient intake appropriate for improving, restoring, or maintaining nutritional needs: Assess nutritional status, identifying any signs and symptoms of altered nutrition Monitor oral nutrient intake, labs, and treatment plans Recommend appropriate diets, oral nutritional supplements and vitamin/mineral supplements Provide specific nutrition education, as appropriate Problem: Swallowing Goal: Patient's ability to maintain safety and efficiency of swallowing without signs of aspirationwill improve Outcome: Progressing Flowsheets (Taken 12/24/2023 110) Patient's ability to maintain safety and effiency of swallowing without signs of aspiration will improve: Monitor signs and symptoms of aspiration Assist with eating, as needed Provide adequate time for eating Provide appropriate consistency, texture and type of food to avoid choking Problem: Bowel Elimination Goal: Patient will maintain or return to baseline bowel function Outcome: Progressing Flowsheets (Taken 12/24/2023 1105) Patient will maintain or return to baseline bowel function: Monitor amount, characteristics and/or frequency of stool Monitor for signs and symptoms of constipation Goal: Patient will be continent of stool Outcome: Progressing Flowsheets (Taken 12/24/2023 110) Patient will be continent of stool: Encourage toileting Problem: Bladder/Voiding Goal: Patient will be continent of urine Outcome: Progressing Flowsheets (Taken 12/24/2023 110) Patient will be continent of urine: Encourage toileting Monitor intake and output Problem: Safety Goal: Patient will demonstrate safety requirements appropriate to situation/environment Outcome: Progressing Flowsheets (Taken 12/16/2023 1049) Patient will demonstrate safety requirements appropriate to situation/environment: Lock brakes on wheelchair Use gait belt during all transfers Problem: Activity Goal: Patient's ability to tolerate activity will improve Outcome: Progressing Flowsheets (Taken 12/24/2023 110) Patient's ability to tolerate activity will improve: Assist with repositioning, as needed Plan scheduling of activities to allow periods of rest Assess response to activities Encourage independence with self-care activities Problem: Skin Integrity Goal: Patient's skin integrity remains intact Outcome: Progressing Flowsheets (Taken 12/24/2023 1105) Patient's skin integrity remains intact: Monitor for areas of redness and/or skin breakdown Assess and document skin integrity Assess and document risk factors for pressure ulcer development Goal: Patient will show no evidence of further tissue damage with pressure reduction techniques andpreventative skin care measures Outcome: Progressing Flowsheets (Taken 12/24/2023 1105) Patient will show no evidence of further tissue damage with pressure reduction techniques and preventative skin care measures: Use precautions to protect skin integrity Provide pressure-redistribution chair cushion Float heels off surface Problem: Fall Risk Goal: Patient will remain free from falls Outcome: Progressing Flowsheets (Taken 12/24/2023 1105) Patient will remain free from falls: Assess risk factors for falls Collaborate with other disciplines Implement fall prevention measures Goal: Patient's ability to state ways to decrease the risk of falls will improve Outcome: Progressing Flowsheets (Taken 12/22/2023 1036) Patient's ability to state ways to decrease the risk of falls will improve: Teach fall prevention measures Goal: Patient will remain free from injury from falls Outcome: Progressing Flowsheets (Taken 12/24/2023 1105) Patient will remain free from injury from falls: Provide safe environment for activities of daily living in hospital environment Problem: Discharge Planning Goal: Patient's understanding of discharge needs will improve Outcome: Progressing Goals: Clinical Goals for the Shift: safety/comfort Summary: Patient safety maintained and comfort monitored. Patient requested medications be reviewedfor pending discharge. * Plan of Care - Tasha Brito RN - 12/24/2023 2:53 AM CDT Problem: Safety Goal: Patient will demonstrate safety requirements appropriate to situation/environment Outcome: Progressing Flowsheets (Taken 12/16/2023 1049 by Gela Gann RN) Patient will demonstrate safety requirements appropriate to situation/environment: Lock brakes on wheelchair Use gait belt during all transfers Problem: Fall Risk Goal: Patient will remain free from injury from falls Outcome: Progressing Flowsheets (Taken 12/22/2023 1036 by Gela Gann, MARAH) Patient will remain free from injury from falls: Provide safe environment for activities of daily living in hospital environment Goals: Clinical Goals for the Shift: safety/comfort Summary: VSS denies pain or discomfort. Call light used to voice needs * Plan of Care - Paresh Prieto SLP - 12/23/2023 12:52 PM CDT Problem: NUMEROLOGIST Misc Goal: NUMEROLOGIST LTG - Misc 1 Description: Patient to perform short term memory tasks using compensatory strategies with 80% accuracy. Outcome: Progressing Goal: NUMEROLOGIST LTG - Misc 2 Description: Patient to perform functional problem solving/reasoning tasks with 80% accuracy. Outcome: Progressing Goal: NUMEROLOGIST LTG - Misc 3 Description: Patient to attend to left visual field 80% of the time given 2-3 verbal prompts. Outcome: Progressing Goal: NUMEROLOGIST LTG - Misc 4 Description: Patient's speech to be 90% intelligible during conversational tasks utilizing compensatory strategies. Outcome: Progressing * Plan of Care - Cinthya Watters RN - 12/23/2023 10:13 AM CDT Goals: Clinical Goals for the Shift: safety and stable vs Summary: Problem: Nutritional Goal: Patient's nutrient intake appropriate for improving, restoring or maintaining nutritional needs Outcome: Progressing Problem: Swallowing Goal: Patient's ability to maintain safety and efficiency of swallowing without signs of aspirationwill improve Outcome: Progressing Problem: Bowel Elimination Goal: Patient will maintain or return to baseline bowel function Outcome: Progressing Goal: Patient will be continent of stool Outcome: Progressing Problem: Bladder/Voiding Goal: Patient will be continent of urine Outcome: Progressing Problem: Safety Goal: Patient will demonstrate safety requirements appropriate to situation/environment Outcome: Progressing Problem: Activity Goal: Patient's ability to tolerate activity will improve Outcome: Progressing Problem: Skin Integrity Goal: Patient's skin integrity remains intact Outcome: Progressing Goal: Patient will show no evidence of further tissue damage with pressure reduction techniques andpreventative skin care measures Outcome: Progressing Problem: Fall Risk Goal: Patient will remain free from falls Outcome: Progressing Goal: Patient's ability to state ways to decrease the risk of falls will improve Outcome: Progressing Goal: Patient will remain free from injury from falls Outcome: Progressing Problem: Discharge Planning Goal: Patient's understanding of discharge needs will improve Outcome: Progressing * Plan of Care - Lianet Reyna - 12/22/2023 10:35 PM CDT Problem: Nutritional Goal: Patient's nutrient intake appropriate for improving, restoring or maintaining nutritional needs Outcome: Ongoing Problem: Swallowing Goal: Patient's ability to maintain safety and efficiency of swallowing without signs of aspirationwill improve Outcome: Ongoing Problem: Bowel Elimination Goal: Patient will maintain or return to baseline bowel function Outcome: Ongoing Goal: Patient will be continent of stool Outcome: Ongoing Problem: Bladder/Voiding Goal: Patient will be continent of urine Outcome: Ongoing Problem: Safety Goal: Patient will demonstrate safety requirements appropriate to situation/environment Outcome: Ongoing Problem: Activity Goal: Patient's ability to tolerate activity will improve Outcome: Ongoing Problem: Skin Integrity Goal: Patient's skin integrity remains intact Outcome: Ongoing Goal: Patient will show no evidence of further tissue damage with pressure reduction techniques andpreventative skin care measures Outcome: Ongoing Problem: Fall Risk Goal: Patient will remain free from falls Outcome: Ongoing Goal: Patient's ability to state ways to decrease the risk of falls will improve Outcome: Ongoing Goal: Patient will remain free from injury from falls Outcome: Ongoing Problem: Discharge Planning Goal: Patient's understanding of discharge needs will improve Outcome: Ongoing Goals: Clinical Goals for the Shift: VSS, Safety, Res, Pain Control * Plan of Care - Kendra Lopez MSW - 12/22/2023 3:19 PM CDT Jimena spoke with pt's spouse to update on care conference, no d/c date set yet but informed family that pt will need help upon d/c. QUAN Frank,ACM-JIMENA, [facility] [phone] * Plan of Care - Gela Gann RN - 12/22/2023 10:38 AM CDT Problem: Nutritional Goal: Patient's nutrient intake appropriate for improving, restoring or maintaining nutritional needs Outcome: Progressing Flowsheets (Taken 12/16/2023 1049) Patient's nutrient intake appropriate for improving, restoring, or maintaining nutritional needs: Assess nutritional status, identifying any signs and symptoms of altered nutrition Monitor oral nutrient intake, labs, and treatment plans Recommend appropriate diets, oral nutritional supplements and vitamin/mineral supplements Problem: Swallowing Goal: Patient's ability to maintain safety and efficiency of swallowing without signs of aspirationwill improve Outcome: Progressing Problem: Bowel Elimination Goal: Patient will maintain or return to baseline bowel function Outcome: Progressing Flowsheets (Taken 12/22/2023 1036) Patient will maintain or return to baseline bowel function: Assess bowel function, evaluate bowel sounds and signs Monitor amount, characteristics and/or frequency of stool Goal: Patient will be continent of stool Outcome: Progressing Flowsheets (Taken 12/22/2023 1036) Patient will be continent of stool: Encourage toileting Problem: Bladder/Voiding Goal: Patient will be continent of urine Outcome: Progressing Flowsheets (Taken 12/22/2023 1036) Patient will be continent of urine: Encourage toileting Monitor intake and output Problem: Safety Goal: Patient will demonstrate safety requirements appropriate to situation/environment Outcome: Progressing Flowsheets (Taken 12/16/2023 1049) Patient will demonstrate safety requirements appropriate to situation/environment: Lock brakes on wheelchair Use gait belt during all transfers Problem: Activity Goal: Patient's ability to tolerate activity will improve Outcome: Progressing Flowsheets (Taken 12/22/2023 1036) Patient's ability to tolerate activity will improve: Assist with repositioning, as needed Assess response to activities Plan scheduling of activities to allow periods of rest Problem: Skin Integrity Goal: Patient's skin integrity remains intact Outcome: Progressing Flowsheets (Taken 12/22/2023 1036) Patient's skin integrity remains intact: Assess and document skin integrity Assess and document risk factors for pressure ulcer development Goal: Patient will show no evidence of further tissue damage with pressure reduction techniques andpreventative skin care measures Outcome: Progressing Flowsheets (Taken 12/21/2023 1241) Patient will show no evidence of further tissue damage with pressure reduction techniques and preventative skin care measures: Use precautions to protect skin integrity Provide pressure-redistribution chair cushion Provide pressure-redistribution bed and/or mattress Problem: Fall Risk Goal: Patient will remain free from falls Outcome: Progressing Flowsheets (Taken 12/22/2023 1036) Patient will remain free from falls: Assess risk factors for falls Implement fall prevention measures Goal: Patient's ability to state ways to decrease the risk of falls will improve Outcome: Progressing Flowsheets (Taken 12/22/2023 1036) Patient's ability to state ways to decrease the risk of falls will improve: Teach fall prevention measures Goal: Patient will remain free from injury from falls Outcome: Progressing Flowsheets (Taken 12/22/2023 1036) Patient will remain free from injury from falls: Provide safe environment for activities of daily living in hospital environment Problem: Discharge Planning Goal: Patient's understanding of discharge needs will improve Outcome: Progressing Goals: Clinical Goals for the Shift: safety, comfort Summary: Patient safety maintained and comfort monitored.Patient very proud of being able to lift left arm a few inches. * Patient Care Conference - Kendra Lopez MSW - 12/22/2023 8:24 AM CDT Images from the original note were not included. Inpatient RehabilitationTeam Conference Note Date: 12/22/2023 Time: 8:24 AM Patient Name: Gunjan Gtz Jr. Date of : 1945 Sex: Male Room/Bed: [id number] Admitting Diagnosis: Acute CVA (cerebrovascular accident) (HCC) [I63.9] Admit Date/Time: 12/15/2023 2:14 PM Admission Comments: No comment available Rehab Diagnosis:Rehab Diagnosis: CVA- Left Hemiparesis Vitals: 12/22/23 0807 BP: 115/64 Pulse: 71 Resp: 16 Temp: 36.3 ??C (97.3 ??F) SpO2: 95% Weight /Nutrition Weight: 95.4 kg (210 lb 5.1 oz) Weight change: Food consistency: Liquid consistency: Bladder and Bowel Accidents/Last BM Bladder Continence Status 12/19 2310 Incontinent daily 12/20 2039 Always incontinent 12/16 0240 Always incontinent 12/15 1999 Always incontinent 12/14 1451 Always incontinent Bowel Continence Status 12/15 1340 Occassionally incontinent 12/15 1999 Occassionally incontinent 12/14 1451 Occassionally incontinent Pressure Ulcers None Patient Active Problem List Diagnosis Date Noted Moderate malnutrition ([facility]) 12/17/2023 Acute CVA (cerebrovascular accident) ([facility]) 12/07/2023 Infrarenal abdominal aortic aneurysm (AAA) without rupture ([facility]) 11/12/2023 Lung nodule 10/13/2023 Nocturnal cough 10/13/2023 Hiatal hernia 10/13/2023 Upper GI bleed 10/11/2023 Acquired hypothyroidism 10/11/2023 Acute blood loss anemia 10/11/2023 Coffee ground emesis 10/10/2023 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 05/18/2023 Biceps tendinitis of left upper extremity 05/18/2023 Tear of left glenoid labrum 05/18/2023 Hx of total knee replacement, right 12/01/2022 Neuropathy ([facility]) 12/01/2022 Idiopathic peripheral neuropathy Abnormality of gait and mobility Pain due to total right knee replacement ([facility]) ([facility]) 04/28/2022 Hamstring tendinitis of right thigh 04/28/2022 Quadriceps weakness 04/28/2022 Edema 04/04/2020 Intermittent claudication ([facility]) 04/04/2020 Iron deficiency anemia 04/04/2020 Peripheral vascular disease ([facility]) 04/04/2020 Goiter 12/05/2019 Subchondral insufficiency fracture of condyle of left femur ([facility]) ([facility]) 08/30/2018 Closed fracture of left tibial plateau [...] right 02/01/2018 Skin lesion of breast 02/01/2018 Conference Led by: (Physician Name, Credentials and Specialty): Dr Becky Palomo MD,PM&R/Physical Medicine and Rehabilitation Team Members Present: Physician Casting Technician: Becky Montana MD Nursing Casting Technician: Gela Gann RN Social Work Casting Technician: Kendra Lopez MSW PT Casting Technician: Vanessa Zaman PT OT Casting Technician: Krystle Cruz OT NUMEROLOGIST Casting Technician: Paresh Prieto SLP Patient/Family Present: Patient Present: No Patient's Family Present: No Treatment Goals: Multi-Disciplinary Problems Active Problems Problem: Nutritional Start Date: 12/15/23 Goal Start Date End Date Patient's nutrient intake appropriate for improving, restoring or maintaining nutritional needs 12/15/23 -- Problem: Swallowing Start Date: 12/15/23 Goal Start Date End Date Patient's ability to maintain safety and efficiency of swallowing without signs of aspiration will improve 12/15/23 -- Problem: Bowel Elimination Start Date: 12/15/23 Goal Start Date End Date Patient will maintain or return to baseline bowel function 12/15/23 -- Goal Start Date End Date Patient will be continent of stool 12/15/23 -- Problem: Bladder/Voiding Start Date: 12/15/23 Goal Start Date End Date Patient will be continent of urine 12/15/23 -- Problem: Safety Start Date: 12/15/23 Goal Start Date End Date Patient will demonstrate safety requirements appropriate to situation/environment 12/15/23 -- Problem: Activity Start Date: 12/15/23 Goal Start Date End Date Patient's ability to tolerate activity will improve 12/15/23 -- Problem: Skin Integrity Start Date: 12/15/23 Goal Start Date End Date Patient's skin integrity remains intact 12/15/23 -- Goal Start Date End Date Patient will show no evidence of further tissue damage with pressure reduction techniques and preventative skin care measures 12/15/23 -- Problem: Fall Risk Start Date: 12/15/23 Goal Start Date End Date Patient will remain free from falls 12/15/23 -- Goal Start Date End Date Patient's ability to state ways to decrease the risk of falls will improve 12/15/23 -- Goal Start Date End Date Patient will remain free from injury from falls 12/15/23 -- Problem: Discharge Planning Start Date: 12/15/23 Goal Start Date End Date Patient's understanding of discharge needs will improve 12/15/23 -- Problem: NUMEROLOGIST Mis Start Date: 12/16/23 Goal Start Date End Date [facility] 1 12/16/23 -- Goal Details: Patient to perform short term memory tasks using compensatory strategies with 80% accuracy. Goal Start Date End Date [facility] 2 12/16/23 -- Goal Details: Patient to perform functional problem solving/reasoning tasks with 80% accuracy. Goal Start Date End Date [facility] 3 12/16/23 -- Goal Details: Patient to attend to left visual field 80% of the time given 2-3 verbal prompts. Goal Start Date End Date [facility] [place]/16/23 -- Goal Details: Patient's speech to be 90% intelligible during conversational tasks utilizing compensatory strategies. Problem: PT Misc Start Date: 12/16/23 Goal Start Date End Date Patient to perform supine to/from sit with SBA 12/16/23 -- Goal Start Date End Date Patient to perform sit to/from stand with SBA 12/16/23 -- Goal Start Date End Date Patient to perform bed to/from chair with SBA 12/16/23 -- Goal Start Date End Date Patient to ambulate 50' using least restrictive device and CGA 12/16/23 -- Goal Start Date End Date Patient to propel w/c 150' using rasheed-technique modified independent 12/16/23 -- Goal Start Date End Date Patient to perform HEP with SBA 12/16/23 -- Goal Start Date End Date Patient to perform 2 steps using appropriate technique and minimal assist 12/16/23 -- Goal Start Date End Date Patient and family to attend family training session 12/16/23 -- Problem: OT Mis Start Date: 12/16/23 Goal Start Date End Date OT [facility] 1 12/16/23 -- Goal Details: Patient will complete basic ADL routine including: bathing in shower, LE dressing, footwear, UB dressing, and grooming tasks with min assist and appropriate compensatory strategies. Goal Start Date End Date [facility] 2 12/16/23 -- Goal Details: Patient will complete simulated car transfer using appropriate device with min assist Goal Start Date End Date [facility] 3 12/16/23 -- Goal Details: Patient will complete toileting and toilet transfer with min assist and appropriate device. Goal Start Date End Date [facility] 4 12/16/23 -- Goal Details: Patient will complete functional/meaningful task in standing for 3-5 minutes with minassist for balance one time. Goal Start Date End Date [facility] 5 12/16/23 -- Goal Details: Patient will complete HEP (LUE SROM/RUE AROM) to improve BUE ROM/strength/endurance and ADL participation with min verbal cues 1 time. Goal Start Date End Date [facility] 6 12/16/23 -- Goal Details: Patient family/caregiver will attend one OT session and be aware of discharge needs/plans Goal Start Date End Date [facility] 7 12/16/23 -- Goal Details: Patient will complete medication management for 2-3 prescriptions with 100% accuracy and no additional cues one time. Current functional status: ADL: OT Functional Mobility: 12/20 Functional transfers: MOD-MAX (12/21/2023 4:00 PM) OT Self Care: 12/20 Bathing: MAX Grooming: MAX UB dress:MOD LB dress: MAX Footwear: MAX Toileting:TOTAL (12/21/2023 4:00 PM) OT Cognition: 12/15 A&O X4 (12/16/2023 4:00 PM) OT Communication: 12/15 WNL (12/16/2023 4:00 PM) Mobility/Transfers: PT Functional Mobility: 12/21/23: supine <> sit with MIN assist for L LE. Rolling toward L side with SBA. Sit <> stand to rasheed-aide with MOD to MIN assist. 12' gait with rasheed-aide and MOD assist. Stand pivot with rasheed-aide and MAX assist. W/C mobility 60'-75' with R LE and UE with SPV. (12/21/2023 12:00 PM) Cognition/Communication/Swallowing: NUMEROLOGIST Cognition: Mild/moderate cognitive deficits in short term memory and thought organization. (12/21/2023 1:24 PM) NUMEROLOGIST Communication: Mild dysarthric speech. (12/21/2023 1:24 PM) NUMEROLOGIST Swallowing: Swallow assessed by NUMEROLOGIST. Regular consistency diet/thin liquids recommended. Patientuses intermittent finger/lingual sweep and liquid wash to clear residue. 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 Home Accessibility: 2 steps in, 17 steps to basement School: n/a Other Issues: n/a Family Education/Participation Family Participation Plan: To be determined Caregiver at Discharge: home with spouse Living Setting at Discharge: Patient expects to be discharged to:: Private residence Therapy needed: Home health aide, PT - home health, OT - home health, Nurse visit Steps: Steps in home?: Yes, Outside of home, Yes, Inside home,Number of steps inside: 17 steps (to the basement),Number of steps outside: 2 steps (from garage or the front) Premorbid DME: Walker (wheeled), Rollator, Cane (single prong), Tub bench Anticipated Discharge Date: TBD Potential Snf Needs/Follow-up: Potential Washer Meat Needs: Therapies,Community Resources: To be determined Consults/Referrals: Home Health Anticipated Supervision:home with family and [facility] vs snf Anticipated Equipment Needs: OT: TBD PT: w/c, rasheed walker Strengths to Achieving Rehab Goals: see notes below Barriers to Achieving Rehab Goals: see notes below Medical Barriers: Gela Gann RN Registered Nurse Nursing Plan of Care Signed Date of Service: 12/22/2023 10:38 AM Signed Problem: Nutritional Goal: Patient's nutrient intake appropriate for improving, restoring or maintaining nutritional needs Outcome: Progressing Flowsheets (Taken 12/16/2023 1049) Patient's nutrient intake appropriate for improving, restoring, or maintaining nutritional needs: Assess nutritional status, identifying any signs and symptoms of altered nutrition Monitor oral nutrient intake, labs, and treatment plans Recommend appropriate diets, oral nutritional supplements and vitamin/mineral supplements Problem: Swallowing Goal: Patient's ability to maintain safety and efficiency of swallowing without signs of aspirationwill improve Outcome: Progressing Problem: Bowel Elimination Goal: Patient will maintain or return to baseline bowel function Outcome: Progressing Flowsheets (Taken 12/22/2023 1036) Patient will maintain or return to baseline bowel function: Assess bowel function, evaluate bowel sounds and signs Monitor amount, characteristics and/or frequency of stool Goal: Patient will be continent of stool Outcome: Progressing Flowsheets (Taken 12/22/2023 1036) Patient will be continent of stool: Encourage toileting Problem: Bladder/Voiding Goal: Patient will be continent of urine Outcome: Progressing Flowsheets (Taken 12/22/2023 1036) Patient will be continent of urine: Encourage toileting Monitor intake and output Problem: Safety Goal: Patient will demonstrate safety requirements appropriate to situation/environment Outcome: Progressing Flowsheets (Taken 12/16/2023 1049) Patient will demonstrate safety requirements appropriate to situation/environment: Lock brakes on wheelchair Use gait belt during all transfers Problem: Activity Goal: Patient's ability to tolerate activity will improve Outcome: Progressing Flowsheets (Taken 12/22/2023 1036) Patient's ability to tolerate activity will improve: Assist with repositioning, as needed Assess response to activities Plan scheduling of activities to allow periods of rest Problem: Skin Integrity Goal: Patient's skin integrity remains intact Outcome: Progressing Flowsheets (Taken 12/22/2023 1036) Patient's skin integrity remains intact: Assess and document skin integrity Assess and document risk factors for pressure ulcer development Goal: Patient will show no evidence of further tissue damage with pressure reduction techniques andpreventative skin care measures Outcome: Progressing Flowsheets (Taken 12/21/2023 1241) Patient will show no evidence of further tissue damage with pressure reduction techniques and preventative skin care measures: Use precautions to protect skin integrity Provide pressure-redistribution chair cushion Provide pressure-redistribution bed and/or mattress Problem: Fall Risk Goal: Patient will remain free from falls Outcome: Progressing Flowsheets (Taken 12/22/2023 1036) Patient will remain free from falls: Assess risk factors for falls Implement fall prevention measures Goal: Patient's ability to state ways to decrease the risk of falls will improve Outcome: Progressing Flowsheets (Taken 12/22/2023 1036) Patient's ability to state ways to decrease the risk of falls will improve: Teach fall prevention measures Goal: Patient will remain free from injury from falls Outcome: Progressing Flowsheets (Taken 12/22/2023 1036) Patient will remain free from injury from falls: Provide safe environment for activities of daily living in hospital environment Problem: Discharge Planning Goal: Patient's understanding of discharge needs will improve Outcome: Progressing Goals: Clinical Goals for the Shift: safety, comfort Summary: Patient safety maintained and comfort monitored.Patient very proud of being able to lift left arm a few inches. Weekly Team Goals: Rosalia Marinelli, OT Occupational Therapist Occupational Therapy Progress Notes Signed Date of Service: 12/21/2023 4:26 PM Signed Occupational Therapy NOTE / SESSION TYPE: OT ROUNDS UPDATE PATIENT'S NAME: Gunjan Gtz Jr. AGE / SEX: 78 y.o. / male ROOM: [place] [id number] : 1945 DATE: 12/21/23 Multi-Disciplinary Problems (from Occupational Therapy) Active Problems Problem: [place] [facility] [place] Date: 12/16/23 Goal Start Date Expected End Date End Date [facility] 1 12/16/23 12/23/23 -- Goal Details: Patient will complete basic ADL routine including: bathing in shower, LE dressing, footwear, UB dressing, and grooming tasks with min assist and appropriate compensatory strategies. Goal Start Date Expected End Date End Date [facility] 2 12/16/23 12/23/23 -- Goal Details: Patient will complete simulated car transfer using appropriate device with min assist Goal Start Date Expected End Date End Date [facility] 3 12/16/23 12/23/23 -- Goal Details: Patient will complete toileting and toilet transfer with min assist and appropriate device. Goal Start Date Expected End Date End Date [facility] 4 12/16/23 12/23/23 -- Goal Details: Patient will complete functional/meaningful task in standing for 3-5 minutes with minassist for balance one time. Goal Start Date Expected End Date End Date [facility] 5 12/16/23 12/23/23 -- Goal Details: Patient will complete HEP (LUE SROM/RUE AROM) to improve BUE ROM/strength/endurance and ADL participation with min verbal cues 1 time. Goal Start Date Expected End Date End Date OT [facility] [place] 12/16/23 12/23/23 -- Goal Details: Patient family/caregiver will attend one OT session and be aware of discharge needs/plans Goal Start Date Expected End Date End Date OT [facility] 12/16/23 12/23/23 -- Goal Details: Patient will complete medication management for 2-3 prescriptions with 100% accuracy and no additional cues one time. CURRENT FUNCTIONAL STATUS: Mr. Gtz is making good progress in therapy. They demonstrate good participation and good motivation working towards therapy goals. They are currently completing sponge bathing with max assist including standing components. They are mod assist for UE dressing. They are max assist for LE dressing with max assist for standing components. They are completing footwear withmax assist. They are currently completing oral care/grooming tasks in sitting with max assist. Theyare receptive to education and training. They are using compensatory strategies/adaptive equipment including rasheed techniques during ADLs. They are using rasheed aide for functional transfers and need mod assist for standard toilet and mod assist for stand pivot transfers. They need total assist for toileting. All goals have not been addressed due to recent admission to unit. They are expected to continue to progress in therapy. They will benefit from continued skilled occupational therapy to work on adaptive ADL strategies, balance, functional transfers, and UE ROM/strength to increase independence with daily occupations and lower the burden of care on family/caregivers. STRENGTHS: MOTIVATED, GOOD FAMILY / SOCIAL SUPPORT, ABLE TO TOLERATE INPATIENT REHAB, GOOD PREMORBID FUNCTIONAL STATUS, GOOD PREMORBID MEDICAL STATUS, and LIVING IN THE COMMUNITY PREMORBIDLY BARRIERS: DECREASED ACTIVITY TOLERANCE, DECREASED UE ROM / STRENGTH / COORDINATION, DECREASED MOBILITY, DECREASED BALANCE, and DECREASED VISUAL PERCEPTUAL SKILLS OVERCOMING BARRIERS: ADL/IADL training, functional transfer training, caregiver training PRN, UE HEP, endurance training, AE/durable medical equipment training EQUIPMENT RECOMMENDED FOR DISCHARGE: HAILEE Marinelli, OT 12/21/23 4:27 PM Paresh Prieto, NUMEROLOGIST Speech and Language Pathologist Speech Pathology Plan of Care Signed Date of Service: 12/21/2023 1:29 PM Signed Problem: NUMEROLOGIST Mis Goal: NUMEROLOGIST [facility] Description: Patient to perform short term memory tasks using compensatory strategies with 80% accuracy. Outcome: Progressing Note: Current Functional Status: NUMEROLOGIST Cognition: Mild/moderate cognitive deficits in short term memory and thought organization. NUMEROLOGIST Communication: Mild dysarthric speech. NUMEROLOGIST Swallowing: Swallow assessed by NUMEROLOGIST. Regular consistency diet/thin liquids recommended. Patientuses intermittent finger/lingual sweep and liquid wash to clear residue. Barriers: Cognition Overcoming Barriers: Short term recall tasks, compensatory strategies, daily recall of activities Goal: NUMEROLOGIST [facility] 2 Description: Patient to perform functional problem solving/reasoning tasks with 80% accuracy. Outcome: Progressing Note: Current Functional Status: NUMEROLOGIST Cognition: Mild/moderate cognitive deficits in short term memory and thought organization. NUMEROLOGIST Communication: Mild dysarthric speech. NUMEROLOGIST Swallowing: Swallow assessed by NUMEROLOGIST. Regular consistency diet/thin liquids recommended. Patientuses intermittent finger/lingual sweep and liquid wash to clear residue. Barriers: Cognition Overcoming Barriers: Problem solving/reasoning tasks, verbal cues Goal: NUMEROLOGIST [facility] 3 Description: Patient to attend to left visual field 80% of the time given 2-3 verbal prompts. Outcome: Progressing Note: Current Functional Status: NUMEROLOGIST Cognition: Mild/moderate cognitive deficits in short term memory and thought organization. NUMEROLOGIST Communication: Mild dysarthric speech. NUMEROLOGIST Swallowing: Swallow assessed by NUMEROLOGIST. Regular consistency diet/thin liquids recommended. Patientuses intermittent finger/lingual sweep and liquid wash to clear residue. Barriers: Cognition, left visual field inattention Overcoming Barriers: visual scanning tasks, verbal cues/prompts Goal: NUMEROLOGIST [facility] 4 Description: Patient's speech to be 90% intelligible during conversational tasks utilizing compensatory strategies. Outcome: Progressing Note: Current Functional Status: NUMEROLOGIST Cognition: Mild/moderate cognitive deficits in short term memory and thought organization. NUMEROLOGIST Communication: Mild dysarthric speech. NUMEROLOGIST Swallowing: Swallow assessed by NUMEROLOGIST. Regular consistency diet/thin liquids recommended. Patientuses intermittent finger/lingual sweep and liquid wash to clear residue. Barriers: Dysarthria Overcoming Barriers: Oral motor exercises, speech intelligibility drills Madie Oneill, DIRECTOR OF RECRUITING Rehabilitation Team Lead Physical Therapy Plan of Care Signed Date of Service: 12/21/2023 12:25 PM Signed Problem: PT Misc Goal: Patient to perform 2 steps using appropriate technique and minimal assist Outcome: Not Progressing Goal: Patient and family to attend family training session Outcome: Not Progressing Problem: PT Misc Goal: Patient to perform supine to/from sit with SBA Outcome: Progressing Goal: Patient to perform sit to/from stand with SBA Outcome: Progressing Goal: Patient to perform bed to/from chair with SBA Outcome: Progressing Goal: Patient to ambulate 50' using least restrictive device and CGA Outcome: Progressing Goal: Patient to propel w/c 150' using rasheed-technique modified independent Outcome: Progressing Goal: Patient to perform HEP with SBA Outcome: Progressing Current Functional Status: PT Functional Mobility: 12/21/23: supine <> sit with MIN assist forL LE. Rolling toward L side with SBA. Sit <> stand to rasheed-aide with MOD to MIN assist. 12' gait with rasheed-aide and MOD assist. Stand pivot with rasheed-aide and MAX assist. W/C mobility 60'-75' with R LE and UE with SPV. Strengths: able to tolerate inpatient rehab, good premorbid functional status, good premorbid medical status, living in community premorbidly, and motivated Barriers: lack of family/social support, weakness, pain, decreased endurance, and impaired balance Overcoming Barriers: transfer training, W/C mobility, bed mobility, gait training. Strength and balance training. Equipment Recommendations: W/C, rasheed-walker I have read and agree with the above documentation, plan of care remains appropriate at this time. Vanessa Zaman, PT 12/22/2023 8:23 AM Clinical Summation since admission: All team members agree and have reviewed barriers with Dr. Everardo Palomo. Barriers include ack of family/social support, weakness, pain, decreased endurance, and impaired balance. Overall POC appropriate, plan to move forward with the following treatment changes transfer training, W/C mobility, bed mobility, gait training. Strength and balance training. to overcome barriers. Cosigned by Becky Montana MD at 12/22/2023 12:51 PM CDT Associated attestation - Becky Montana MD - 12/22/2023 12:51 PM CDT I was present for the meeting and agree. 12/22/23 Progress: making progress DC Date: tbd DME: tbd * Plan of Care - Gurdeep Williamson LPN - 12/21/2023 8:22 PM CDT Goals: Clinical Goals for the Shift: safet, comfort Summary: Problem: Bowel Elimination Goal: Patient will maintain or return to baseline bowel function Outcome: Progressing Problem: Bladder/Voiding Goal: Patient will be continent of urine Outcome: Progressing Problem: Safety Goal: Patient will demonstrate safety requirements appropriate to situation/environment Outcome: Progressing Problem: Skin Integrity Goal: Patient's skin integrity remains intact Outcome: Progressing Goal: Patient will show no evidence of further tissue damage with pressure reduction techniques andpreventative skin care measures Outcome: Progressing Problem: Fall Risk Goal: Patient will remain free from falls Outcome: Progressing Goal: Patient's ability to state ways to decrease the risk of falls will improve Outcome: Progressing Goal: Patient will remain free from injury from falls Outcome: Progressing * Plan of Care - Paresh Prieto, NUMEROLOGIST - 12/21/2023 1:29 PM CDT Problem: NUMEROLOGIST Misc Goal: NUMEROLOGIST LTG - Misc 1 Description: Patient to perform short term memory tasks using compensatory strategies with 80% accuracy. Outcome: Progressing Note: Current Functional Status: NUMEROLOGIST Cognition: Mild/moderate cognitive deficits in short term memory and thought organization. NUMEROLOGIST Communication: Mild dysarthric speech. NUMEROLOGIST Swallowing: Swallow assessed by NUMEROLOGIST. Regular consistency diet/thin liquids recommended. Patientuses intermittent finger/lingual sweep and liquid wash to clear residue. Barriers: Cognition Overcoming Barriers: Short term recall tasks, compensatory strategies, daily recall of activities Goal: NUMEROLOGIST LTG - Misc 2 Description: Patient to perform functional problem solving/reasoning tasks with 80% accuracy. Outcome: Progressing Note: Current Functional Status: NUMEROLOGIST Cognition: Mild/moderate cognitive deficits in short term memory and thought organization. NUMEROLOGIST Communication: Mild dysarthric speech. NUMEROLOGIST Swallowing: Swallow assessed by NUMEROLOGIST. Regular consistency diet/thin liquids recommended. Patientuses intermittent finger/lingual sweep and liquid wash to clear residue. Barriers: Cognition Overcoming Barriers: Problem solving/reasoning tasks, verbal cues Goal: NUMEROLOGIST [facility] 3 Description: Patient to attend to left visual field 80% of the time given 2-3 verbal prompts. Outcome: Progressing Note: Current Functional Status: NUMEROLOGIST Cognition: Mild/moderate cognitive deficits in short term memory and thought organization. NUMEROLOGIST Communication: Mild dysarthric speech. NUMEROLOGIST Swallowing: Swallow assessed by NUMEROLOGIST. Regular consistency diet/thin liquids recommended. Patientuses intermittent finger/lingual sweep and liquid wash to clear residue. Barriers: Cognition, left visual field inattention Overcoming Barriers: visual scanning tasks, verbal cues/prompts Goal: NUMEROLOGIST [facility] 4 Description: Patient's speech to be 90% intelligible during conversational tasks utilizing compensatory strategies. Outcome: Progressing Note: Current Functional Status: NUMEROLOGIST Cognition: Mild/moderate cognitive deficits in short term memory and thought organization. NUMEROLOGIST Communication: Mild dysarthric speech. NUMEROLOGIST Swallowing: Swallow assessed by NUMEROLOGIST. Regular consistency diet/thin liquids recommended. Patientuses intermittent finger/lingual sweep and liquid wash to clear residue. Barriers: Dysarthria Overcoming Barriers: Oral motor exercises, speech intelligibility drills * Plan of Care - Gela Gann RN - 12/21/2023 12:44 PM CDT Problem: Nutritional Goal: Patient's nutrient intake appropriate for improving, restoring or maintaining nutritional needs Outcome: Progressing Flowsheets (Taken 12/16/2023 104) Patient's nutrient intake appropriate for improving, restoring, or maintaining nutritional needs: Assess nutritional status, identifying any signs and symptoms of altered nutrition Monitor oral nutrient intake, labs, and treatment plans Recommend appropriate diets, oral nutritional supplements and vitamin/mineral supplements Problem: Swallowing Goal: Patient's ability to maintain safety and efficiency of swallowing without signs of aspirationwill improve Outcome: Progressing Flowsheets (Taken 12/16/2023 104) Patient's ability to maintain safety and effiency of swallowing without signs of aspiration will improve: Monitor signs and symptoms of aspiration Assist with eating, as needed Provide appropriate consistency, texture and type of food to avoid choking Problem: Bowel Elimination Goal: Patient will maintain or return to baseline bowel function Outcome: Progressing Flowsheets (Taken 12/16/2023 1049) Patient will maintain or return to baseline bowel function: Assess bowel function, evaluate bowel sounds and signs Monitor amount, characteristics and/or frequency of stool Monitor for signs and symptoms of constipation Goal: Patient will be continent of stool Outcome: Progressing Flowsheets (Taken 12/21/2023 1241) Patient will be continent of stool: Encourage toileting Problem: Bladder/Voiding Goal: Patient will be continent of urine Outcome: Progressing Flowsheets (Taken 12/21/2023 1241) Patient will be continent of urine: Encourage toileting Monitor intake and output Problem: Safety Goal: Patient will demonstrate safety requirements appropriate to situation/environment Outcome: Progressing Flowsheets (Taken 12/16/2023 1049) Patient will demonstrate safety requirements appropriate to situation/environment: Lock brakes on wheelchair Use gait belt during all transfers Problem: Activity Goal: Patient's ability to tolerate activity will improve Outcome: Progressing Flowsheets (Taken 12/16/2023 1049) Patient's ability to tolerate activity will improve: Follow hip precautions during transfers Assist with repositioning, as needed Plan scheduling of activities to allow periods of rest Assess response to activities Problem: Skin Integrity Goal: Patient's skin integrity remains intact Outcome: Progressing Flowsheets (Taken 12/21/2023 124) Patient's skin integrity remains intact: Assess and document skin integrity Monitor for areas of redness and/or skin breakdown Goal: Patient will show no evidence of further tissue damage with pressure reduction techniques andpreventative skin care measures Outcome: Progressing Flowsheets (Taken 12/21/2023 1241) Patient will show no evidence of further tissue damage with pressure reduction techniques and preventative skin care measures: Use precautions to protect skin integrity Provide pressure-redistribution chair cushion Provide pressure-redistribution bed and/or mattress Problem: Fall Risk Goal: Patient will remain free from falls Outcome: Progressing Flowsheets (Taken 12/21/2023 1241) Patient will remain free from falls: Assess risk factors for falls Implement fall prevention measures Goal: Patient's ability to state ways to decrease the risk of falls will improve Outcome: Progressing Flowsheets (Taken 12/21/2023 124) Patient's ability to state ways to decrease the risk of falls will improve: Teach fall prevention measures Goal: Patient will remain free from injury from falls Outcome: Progressing Flowsheets (Taken 12/16/2023 1049) Patient will remain free from injury from falls: Provide safe environment for activities of daily living in hospital environment Problem: Discharge Planning Goal: Patient's understanding of discharge needs will improve Outcome: Progressing Goals: Clinical Goals for the Shift: safety, comfort Summary: Patient safety maintained and comfort monitored. New orders noted * Plan of Care - Madie Oneill PTA - 12/21/2023 12:25 PM CDT Problem: PT Misc Goal: Patient to perform 2 steps using appropriate technique and minimal assist Outcome: Not Progressing Goal: Patient and family to attend family training session Outcome: Not Progressing Problem: PT Misc Goal: Patient to perform supine to/from sit with SBA Outcome: Progressing Goal: Patient to perform sit to/from stand with SBA Outcome: Progressing Goal: Patient to perform bed to/from chair with SBA Outcome: Progressing Goal: Patient to ambulate 50' using least restrictive device and CGA Outcome: Progressing Goal: Patient to propel w/c 150' using rasheed-technique modified independent Outcome: Progressing Goal: Patient to perform HEP with SBA Outcome: Progressing Current Functional Status: PT Functional Mobility: 12/21/23: supine <> sit with MIN assist forL LE. Rolling toward L side with SBA. Sit <> stand to rasheed-aide with MOD to MIN assist. 12' gait with rasheed-aide and MOD assist. Stand pivot with rasheed-aide and MAX assist. W/C mobility 60'-75' with R LE and UE with SPV. Strengths: able to tolerate inpatient rehab, good premorbid functional status, good premorbid medical status, living in community premorbidly, and motivated Barriers: lack of family/social support, weakness, pain, decreased endurance, and impaired balance Overcoming Barriers: transfer training, W/C mobility, bed mobility, gait training. Strength and balance training. Equipment Recommendations: W/C, rasheed-walker I have read and agree with the above documentation, plan of care remains appropriate at this time. Vanessa Zaman, PT 12/22/2023 8:23 AM * Plan of Care - Gurdeep Williamson LPN - 12/20/2023 8:54 PM CDT Goals: Clinical Goals for the Shift: safety, comfort Summary: Problem: Safety Goal: Patient will demonstrate safety requirements appropriate to situation/environment Outcome: Progressing Problem: Activity Goal: Patient's ability to tolerate activity will improve Outcome: Progressing Problem: Skin Integrity Goal: Patient's skin integrity remains intact Outcome: Progressing Problem: Fall Risk Goal: Patient will remain free from falls Outcome: Progressing Goal: Patient's ability to state ways to decrease the risk of falls will improve Outcome: Progressing Goal: Patient will remain free from injury from falls Outcome: Progressing * Plan of Care - Paresh Prieto SLP - 12/20/2023 10:15 AM CDT Problem: NUMEROLOGIST Misc Goal: NUMEROLOGIST LTG - Misc 1 Description: Patient to perform short term memory tasks using compensatory strategies with 80% accuracy. Outcome: Progressing Goal: NUMEROLOGIST LTG - Misc 2 Description: Patient to perform functional problem solving/reasoning tasks with 80% accuracy. Outcome: Progressing Goal: NUMEROLOGIST LTG - Misc 3 Description: Patient to attend to left visual field 80% of the time given 2-3 verbal prompts. Outcome: Progressing Goal: NUMEROLOGIST LTG - Misc 4 Description: Patient's speech to be 90% intelligible during conversational tasks utilizing compensatory strategies. Outcome: Progressing * Plan of Care - Carol Garcia RN - 12/20/2023 9:16 AM CDT Goals: Clinical Goals for the Shift: safety Summary: Patient safety and comfort measures have been maintained per this shift. * Plan of Care - Ann-Marie Apple RN - 12/19/2023 8:51 PM CDT Summary: Problem: Nutritional Goal: Patient's nutrient intake appropriate for improving, restoring or maintaining nutritional needs Outcome: Progressing Problem: Swallowing Goal: Patient's ability to maintain safety and efficiency of swallowing without signs of aspirationwill improve Outcome: Progressing Problem: Bowel Elimination Goal: Patient will maintain or return to baseline bowel function Outcome: Progressing Goal: Patient will be continent of stool Outcome: Progressing Problem: Safety Goal: Patient will demonstrate safety requirements appropriate to situation/environment Outcome: Progressing Problem: Activity Goal: Patient's ability to tolerate activity will improve Outcome: Progressing Problem: Fall Risk Goal: Patient will remain free from falls Outcome: Progressing Goal: Patient's ability to state ways to decrease the risk of falls will improve Outcome: Progressing Goal: Patient will remain free from injury from falls Outcome: Progressing Problem: Discharge Planning Goal: Patient's understanding of discharge needs will improve Outcome: Progressing * Plan of Care - iLzette Mike RN - 12/19/2023 10:22 AM CDT Goals: Clinical Goals for the Shift: safety Summary: Problem: Bladder/Voiding Goal: Patient will be continent of urine Outcome: Ongoing Flowsheets (Taken 12/19/2023 1022) Patient will be continent of urine: Encourage toileting Problem: Nutritional Goal: Patient's nutrient intake appropriate for improving, restoring or maintaining nutritional needs Outcome: Progressing Problem: Swallowing Goal: Patient's ability to maintain safety and efficiency of swallowing without signs of aspirationwill improve Outcome: Progressing Problem: Bowel Elimination Goal: Patient will maintain or return to baseline bowel function Outcome: Progressing Goal: Patient will be continent of stool Outcome: Progressing Problem: Safety Goal: Patient will demonstrate safety requirements appropriate to situation/environment Outcome: Progressing Problem: Activity Goal: Patient's ability to tolerate activity will improve Outcome: Progressing Problem: Skin Integrity Goal: Patient's skin integrity remains intact Outcome: Progressing Flowsheets (Taken 12/19/2023 1022) Patient's skin integrity remains intact: Assess and document skin integrity Monitor for areas of redness and/or skin breakdown Goal: Patient will show no evidence of further tissue damage with pressure reduction techniques andpreventative skin care measures Outcome: Progressing Flowsheets (Taken 12/19/2023 1022) Patient will show no evidence of further tissue damage with pressure reduction techniques and preventative skin care measures: Use precautions to protect skin integrity Provide pressure-redistribution chair cushion Provide moisture management and/or incontinence care Provide pressure-redistribution bed and/or mattress Float heels off surface Problem: Fall Risk Goal: Patient will remain free from falls Outcome: Progressing Goal: Patient's ability to state ways to decrease the risk of falls will improve Outcome: Progressing Goal: Patient will remain free from injury from falls Outcome: Progressing Problem: Discharge Planning Goal: Patient's understanding of discharge needs will improve Outcome: Progressing * Plan of Care - Lyn Paniagua RN - 12/19/2023 12:20 AM CST Problem: Bladder/Voiding Goal: Patient will be continent of urine Outcome: Progressing Problem: Fall Risk Goal: Patient will remain free from falls Outcome: Progressing Goals: Clinical Goals for the Shift: safety Summary: patient has remained free from fall continues to work with therapies for further improved mobility safety and strengthening towards discharge home [facility] * Plan of Care - Lizette Mike RN - 12/18/2023 9:11 AM CST Goals: Clinical Goals for the Shift: safety Summary: Problem: Nutritional Goal: Patient's nutrient intake appropriate for improving, restoring or maintaining nutritional needs Outcome: Progressing Problem: Swallowing Goal: Patient's ability to maintain safety and efficiency of swallowing without signs of aspirationwill improve Outcome: Progressing Problem: Bowel Elimination Goal: Patient will maintain or return to baseline bowel function Outcome: Progressing Goal: Patient will be continent of stool Outcome: Progressing Problem: Bladder/Voiding Goal: Patient will be continent of urine Outcome: Progressing Problem: Safety Goal: Patient will demonstrate safety requirements appropriate to situation/environment Outcome: Progressing Problem: Activity Goal: Patient's ability to tolerate activity will improve Outcome: Progressing Problem: Skin Integrity Goal: Patient's skin integrity remains intact Outcome: Progressing Goal: Patient will show no evidence of further tissue damage with pressure reduction techniques andpreventative skin care measures Outcome: Progressing Problem: Fall Risk Goal: Patient will remain free from falls Outcome: Progressing Goal: Patient's ability to state ways to decrease the risk of falls will improve Outcome: Progressing Goal: Patient will remain free from injury from falls Outcome: Progressing Problem: Discharge Planning Goal: Patient's understanding of discharge needs will improve Outcome: Progressing [facility] * Plan of Care - Lyn Paniagau RN - 12/18/2023 12:30 AM CST Problem: Bladder/Voiding Goal: Patient will be continent of urine Outcome: Progressing Problem: Fall Risk Goal: Patient will remain free from falls Outcome: Progressing Goals: Clinical Goals for the Shift: safety Summary: patient has remained free from fall fall precautions in place will continue to work with therapies for further improved mobility safety and strengthening towards discharge home [facility] * IPOC (4 Day Plan of Care) - Becky Montana MD - 12/17/2023 11:24 AM CST [facility] Rehabilitation Individualized Interdisciplinary Plan of Care Name: Gunjan Gtz Jr. : 1945 Age: 78 y.o. Gender: male Room/Bed: [facility] [place] [address] Admit: 12/15/2023 2:14 PM Rehab Diagnosis: Rehab Diagnosis: CVA- Left Hemiparesis Current functional status: ADL: OT Functional Mobility: 12/15 Functional transfers: MAX-TOTAL (12/16/2023 4:00 PM) OT Self Care: 12/15 Bathing: TOTAL Grooming: MAX UB dress:MAX LB dress: TOTAL Footwear: TOTAL Toileting:TOTAL (12/16/2023 4:00 PM) OT Cognition: 12/15 A&O X4 (12/16/2023 4:00 PM) OT Communication: 12/15 WNL (12/16/2023 4:00 PM) Mobility/Transfers: PT Functional Mobility: eval: Bed Mobility: Sit to supine with mod assist of 1 for left LE and trunk, supine to sit with mod assist of 1 for left LE and trunk. Rolls left with min assist, rolls rightwith mod assist and cues to attend to left arm. Transfers: sit to/from stand with mod assist of 1, transfers w/c to/from bed going to the right with mod assist of 1. Max assist transferring to the left. Second person for safety for transfers Ambulation: 5' at rasheed bar , max assist of 1 with w/c follow. Patient requires assist for left LE advancement and stability, cues for weight shift, cues for posture, assist for trunk control. Stairs: unsafe Wheelchair management & propulsion: propels w/c 50' using rasheed technique and max assist of 1 (12/16/2023 12:04 PM) Cognition/Communication/Swallowing: NUMEROLOGIST Cognition: Treatment Note 12/13/2023: MENTAL STATUS: Patient awake, sitting up in chair. Reports improvement with double vision. COGNITION: Cognitive deficits in short term memory and insight. TREATMENT ACTIVITIES: Recall daily activities/recent events with 100% accuracy Oral motor exercises 10xs each Oriented x4 (12/14/2023 1:53 PM) NUMEROLOGIST Communication: Treatment Note 12/13/2023: COMMUNICATION: Mild dysarthric speech. (12/14/2023 1:53PM) NUMEROLOGIST Swallowing: Treatment Note 12/13/2023: SWALLOWING: Swallow assessed by NUMEROLOGIST. Regular consistencydiet/thin liquids recommended. Patient's reports patient having difficulty with food getting stuck on left side of mouth. COMBATANT SWIMMER changed diet to mechanical soft/thin liquids. (12/14/2023 1:53 PM) Prognosis: Good Plan Of Care Discharge Plan: Anticipated destination post discharge from inpatient rehab: community discharge with assist Discharge Plan after IRF stay: Plan to go home with his and his daughter with Home Health Care Anticipated Discharge Date/Estimated Length of Stay/Duration of Rehabilitation: Estimated Length ofStay: 14 days The following is a list of patient problems that have been identified by the interdisciplinary team: Multi-Disciplinary Problems Active Problems Problem: Nutritional Start Date: 12/15/23 Goal Start Date End Date Patient's nutrient intake appropriate for improving, restoring or maintaining nutritional needs 12/15/23 -- Problem: Swallowing Start Date: 12/15/23 Goal Start Date End Date Patient's ability to maintain safety and efficiency of swallowing without signs of aspiration will improve 12/15/23 -- Problem: Bowel Elimination Start Date: 12/15/23 Goal Start Date End Date Patient will maintain or return to baseline bowel function 12/15/23 -- Goal Start Date End Date Patient will be continent of stool 12/15/23 -- Problem: Bladder/Voiding Start Date: 12/15/23 Goal Start Date End Date Patient will be continent of urine 12/15/23 -- Problem: Safety Start Date: 12/15/23 Goal Start Date End Date Patient will demonstrate safety requirements appropriate to situation/environment 12/15/23 -- Problem: Activity Start Date: 12/15/23 Goal Start Date End Date Patient's ability to tolerate activity will improve 12/15/23 -- Problem: Skin Integrity Start Date: 12/15/23 Goal Start Date End Date Patient's skin integrity remains intact 12/15/23 -- Goal Start Date End Date Patient will show no evidence of further tissue damage with pressure reduction techniques and preventative skin care measures 12/15/23 -- Problem: Fall Risk Start Date: 12/15/23 Goal Start Date End Date Patient will remain free from falls 12/15/23 -- Goal Start Date End Date Patient's ability to state ways to decrease the risk of falls will improve 12/15/23 -- Goal Start Date End Date Patient will remain free from injury from falls 12/15/23 -- Problem: Discharge Planning Start Date: 12/15/23 Goal Start Date End Date Patient's understanding of discharge needs will improve 12/15/23 -- Problem: NUMEROLOGIST Misc Start Date: 12/16/23 Goal Start Date End Date [facility] [place]16/23 -- Goal Details: Patient to perform short term memory tasks using compensatory strategies with 80% accuracy. Goal Start Date End Date [facility] [place] [facility] 12/16/23 -- Goal Details: Patient to perform functional problem solving/reasoning tasks with 80% accuracy. Goal Start Date End Date [facility] [place] [facility] 12/16/23 -- Goal Details: Patient to attend to left visual field 80% of the time given 2-3 verbal prompts. Goal Start Date End Date [facility] [place] 12/16/23 -- Goal Details: Patient's speech to be 90% intelligible during conversational tasks utilizing compensatory strategies. Problem: PT Misc Start Date: 12/16/23 Goal Start Date End Date Patient to perform supine to/from sit with SBA 12/16/23 -- Goal Start Date End Date Patient to perform sit to/from stand with SBA 12/16/23 -- Goal Start Date End Date Patient to perform bed to/from chair with SBA 12/16/23 -- Goal Start Date End Date Patient to ambulate 50' using least restrictive device and CGA 12/16/23 -- Goal Start Date End Date Patient to propel w/c 150' using rasheed-technique modified independent 12/16/23 -- Goal Start Date End Date Patient to perform HEP with SBA 12/16/23 -- Goal Start Date End Date Patient to perform 2 steps using appropriate technique and minimal assist 12/16/23 -- Goal Start Date End Date Patient and family to attend family training session 12/16/23 -- Problem: OT [facility] [place]: 12/16/23 Goal Start Date End Date [facility] 1 12/16/23 -- Goal Details: Patient will complete basic ADL routine including: bathing in shower, LE dressing, footwear, UB dressing, and grooming tasks with min assist and appropriate compensatory strategies. Goal Start Date End Date [facility] 2 12/16/23 -- Goal Details: Patient will complete simulated car transfer using appropriate device with min assist Goal Start Date End Date [facility] 3 12/16/23 -- Goal Details: Patient will complete toileting and toilet transfer with min assist and appropriate device. Goal Start Date End Date [facility] 4 12/16/23 -- Goal Details: Patient will complete functional/meaningful task in standing for 3-5 minutes with minassist for balance one time. Goal Start Date End Date [facility] 5 12/16/23 -- Goal Details: Patient will complete HEP (LUE SROM/RUE AROM) to improve BUE ROM/strength/endurance and ADL participation with min verbal cues 1 time. Goal Start Date End Date [facility] 6 12/16/23 -- Goal Details: Patient family/caregiver will attend one OT session and be aware of discharge needs/plans Goal Start Date End Date [facility] 7 12/16/23 -- Goal Details: Patient will complete medication management for 2-3 prescriptions with 100% accuracy and no additional cues one time. Interdisciplinary Team: Therapies required to achieve goals:The patient will benefit from integrated coordination of care from the following interdisciplinary services: Medical Supervision, 24 hours Rehabilitation Nursing, Physical Therapy, Occupational Therapy, Case Management; Social Work; Therapeutic Recreation; SpeechTherapy; Flatwork Feeder Intensity and Frequency: Expected intensity and frequency of participation in the interdisciplinary rehab program is: 3 hours per day except Wednesday. Expected intensity and frequency of Physical Therapy (PT): 1.5 hours per day over 5-7 days for the duration of length of stay Expected intensity and frequency of Occupational Therapy (OT): 1.5 hours per day over 5-7 days per week for the duration of length of stay Expected intensity and frequency of Speech Therapy (NUMEROLOGIST): 1 hour per day per day over 5-7 days per week for the duration of length of stay The established therapy intensity and frequency noted above may be modified to accommodate individualized patient needs. Clinical Summation since admission: expect progress with continued therapy Comments: agree with above. Bowel regimen [facility] * Plan of Care - Gela Gann RN - 12/17/2023 11:00 AM CST Problem: Nutritional Goal: Patient's nutrient intake appropriate for improving, restoring or maintaining nutritional needs Outcome: Progressing Flowsheets (Taken 12/16/2023 1049) Patient's nutrient intake appropriate for improving, restoring, or maintaining nutritional needs: Assess nutritional status, identifying any signs and symptoms of altered nutrition Monitor oral nutrient intake, labs, and treatment plans Recommend appropriate diets, oral nutritional supplements and vitamin/mineral supplements Problem: Swallowing Goal: Patient's ability to maintain safety and efficiency of swallowing without signs of aspirationwill improve Outcome: Progressing Flowsheets (Taken 12/16/2023 1049) Patient's ability to maintain safety and effiency of swallowing without signs of aspiration will improve: Monitor signs and symptoms of aspiration Assist with eating, as needed Provide appropriate consistency, texture and type of food to avoid choking Problem: Bowel Elimination Goal: Patient will maintain or return to baseline bowel function Outcome: Progressing Goal: Patient will be continent of stool Outcome: Progressing Flowsheets (Taken 12/16/20231048) Patient will be continent of stool: Encourage toileting Problem: Bladder/Voiding Goal: Patient will be continent of urine Outcome: Progressing Flowsheets (Taken 12/16/20231048) Patient will be continent of urine: Encourage toileting Monitor intake and output Problem: Safety Goal: Patient will demonstrate safety requirements appropriate to situation/environment Outcome: Progressing Flowsheets (Taken 12/16/20231048) Patient will demonstrate safety requirements appropriate to situation/environment: Lock brakes on wheelchair Use gait belt during all transfers Problem: Activity Goal: Patient's ability to tolerate activity will improve Outcome: Progressing Flowsheets (Taken 12/16/20231048) Patient's ability to tolerate activity will improve: Follow hip precautions during transfers Assist with repositioning, as needed Plan scheduling of activities to allow periods of rest Assess response to activities Problem: Skin Integrity Goal: Patient's skin integrity remains intact Outcome: Progressing Flowsheets (Taken 12/16/20231048) Patient's skin integrity remains intact: Assess and document risk factors for pressure ulcer development Assess and document skin integrity Monitor for areas of redness and/or skin breakdown Goal: Patient will show no evidence of further tissue damage with pressure reduction techniques andpreventative skin care measures Outcome: Progressing Flowsheets (Taken 12/16/20231048) Patient will show no evidence of further tissue damage with pressure reduction techniques and preventative skin care measures: Use precautions to protect skin integrity Provide pressure-redistribution chair cushion Provide moisture management and/or incontinence care Problem: Fall Risk Goal: Patient will remain free from falls Outcome: Progressing Flowsheets (Taken 12/16/20231048) Patient will remain free from falls: Assess risk factors for falls Implement fall prevention measures Collaborate with other disciplines Goal: Patient's ability to state ways to decrease the risk of falls will improve Outcome: Progressing Flowsheets (Taken 12/16/20231048) Patient's ability to state ways to decrease the risk of falls will improve: Teach fall prevention measures Teach information regarding appropriate environmental changes Goal: Patient will remain free from injury from falls Outcome: Progressing Problem: Discharge Planning Goal: Patient's understanding of discharge needs will improve Outcome: Progressing Goals: Clinical Goals for the Shift: safety Summary: Patient safety maintained and comfort monitored. New orders noted. ER/WAITRESS CAFETERIA * Plan of Care - Paresh Prieto SLP - 12/17/2023 10:02 AM CST Problem: NUMEROLOGIST Misc Goal: NUMEROLOGIST LTG - Misc 1 Description: Patient to perform short term memory tasks using compensatory strategies with 80% accuracy. Outcome: Progressing Goal: NUMEROLOGIST LTG - Misc 2 Description: Patient to perform functional problem solving/reasoning tasks with 80% accuracy. Outcome: Progressing Goal: NUMEROLOGIST LTG - Misc 3 Description: Patient to attend to left visual field 80% of the time given 2-3 verbal prompts. Outcome: Progressing Goal: NUMEROLOGIST LTG - Misc 4 Description: Patient's speech to be 90% intelligible during conversational tasks utilizing compensatory strategies. Outcome: Progressing ER/WAITRESS CAFETERIA * Plan of Care - Lyn Paniagua RN - 12/17/2023 12:18 AM CST Problem: Fall Risk Goal: Patient will remain free from falls Outcome: Progressing Problem: Discharge Planning Goal: Patient's understanding of discharge needs will improve Outcome: Progressing Goals: Clinical Goals for the Shift: safety Summary: patient has remained free from fall fall precautions in place bed alarm on will continue to work with therapies for improved mobility and safety towards discharge ER/WAITRESS CAFETERIA * Initial Assessments - Kendra Lopez MSW - 12/16/2023 4:01 PM WAITER/WAITRESS CAFETERIA CM Initial Assessment Interview Note Information Obtained From: Patient (12/16/23 1754) 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 CTH negative. CTA no LVO. He was given tPA. Neurology consulted. 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 Noted to have coffee ground emesis, lovenox and aspirin held and patient started on IV protonix. No further episodes and aspirin resumed. FOBT negative. Therapy recommending acute rehab prior to return home. Plan Includes: continued pt/ot/st/sn and sw in an acute rehab setting Primary Source of Transportation: Does the patient need discharge transport arranged?: No Has discharge transport been arranged?: No (12/16/23 1556) Health Insurance Coverage: [employer] Prescription Coverage: yes [facility]acy: [facility] [address] [facility] [address] Primary Care Provider: Wolfgang Serrano MD Prior to Admission: Functional Status: Independent with ADLs Primary Caregiver: Self Support System: Spouse/Significant Other, Children Home Care Services: No (has had c a couple of years ago with new replacement) Outpatient Services: Yes Therapy: Physical Therapy Location: [facility] in [place] Durable Medical Equipment: Walker (wheeled), Rollator, Cane (single prong), Tub bench Living Arrangements: Spouse/significant other Type of Residence: Private residence Steps in home?: Yes, Outside of home, Yes, Inside home Number of steps inside: 17 steps (to the basement) Number of steps outside: 2 steps (from garage or the front) Medication management: Independent ([place]) (12/16/23 1556) SDOH: Transportation: In the past 12 months, has lack of transportation kept you from medical appointments or from getting medications?: No In the past 12 months, has lack of transportation kept you from meetings, work, or from getting things needed for daily living?: No (12/16/23 4305) Financial Resource: How hard is it for you to pay for the very basics like food, housing, medical care, and heating?: Not hard at all (12/16/23 1418) Housing: In the last 12 months, was there a time when you were not able to pay the mortgage or rent on time?: No In the last 12 months, how many places have you lived?: 1 In the last 12 months, was there a time when you did not have a steady place to sleep or slept in ashelter (including now)?: No (12/16/23 1418) Social Connections: In a typical week, how many times do you talk on the phone with family, friends, or neighbors?: More than three times a week How often do you get together with friends or relatives?: More than three times a week How often do you attend pentecostalism or faith services?: More than 4 times per year Do you belong to any clubs or organizations such as pentecostalism groups, unions, fraternal or athletic groups, or school groups?: No How often do you attend meetings of the clubs or organizations you belong to?: Never Are you , , , , never , or living with a partner?: (12/16/23 141) Food Insecurity: Within the past 12 months, you worried that your food would run out before you got the money to buymore.: Never true Within the past 12 months, the food you bought just didn't last and you didn't have money to get more.: Never true (12/16/231417) Alcohol Use: Q1: How often do you have a drink containing alcohol?: Monthly or less Q2: How many drinks containing alcohol do you have on a typical day when you are drinking?: 1 or 2 Q3: How often do you have six or more drinks on one occasion?: Less than monthly (12/16/23 141) PHQ Screening Little Interest or Pleasure in Doing Things: Not at all Feeling Down, Depressed, or Hopeless: Not at all PHQ-2 Total Score (If total score is 3 or more points, staff should administer the PHQ-9): 0 (12/16/23 1601) Little Interest or Pleasure in Doing Things: Not at all Feeling Down, Depressed, or Hopeless: Not at all PHQ-2 Total Score (If total score is 3 or more points, staff should administer the PHQ-9): 0 Trouble Falling or Staying Asleep, or Sleeping too Much: Nearly every day Feeling Tired or Having Little Energy: Several days Poor Appetite or Overeating: Not at all Feeling Bad About Yourself - or That You are a Failure or Have Let Yourself or Your Family Down: Not at all Trouble Concentrating on Things, Such as Reading the Newspaper or Watching Television: Not at all Moving or Speaking so Slowly That Other People Could Have Noticed, or the Opposite - Being so Fidgety or Restless That You Have Been Moving Around a lot More Than Usual: Several days Thoughts That You Would be Better off , or of Hurting Yourself in Some Way: Not at all PHQ-9 Total Score: 5 If you checked off any problems, how difficult have these problems made it for you to do your work,take care of things at home, or get along with other people?: Not difficult at all (12/16/23 1601) Potential discharge needs include: Home Health: Physical therapy, Occupational therapy Community Resources: Homemaker services (12/16/23 902) Dialysis: N/a Behavioral Health Services: Behavioral Health Services: No (12/16/231555) Patient expects to be Discharged to: Private residence, (12/16/23 155) Additional Information: Sw met with pt and spouse at the bedside. Pt is from home with spouse. Pt and spouse both have 3 children a piece. Most of kids live out of town. One dtr lives in town but sheis currently . 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 Spouse works two housekeeping department worker jobs as a teacher (one job in the college and one in the elementary). Spousehas been considering giving one up prior to pt's stroke. Pt is a but didn't serve in wartime. Pt's PCP is ebony Serrano, and gets meds from [facility] in [place]. Pt's spouse not sure ifshe will be able to take off, will see what pt needs upon d/c. Sw informed spouse that pt most likely will not be her a month. Patient's Identified Problem/Goal: weakness, to get out as quickly as he can Problem: Ensure acute medical needs are met and that patient has a safe discharge plan. Goal: Secure a discharge plan that patient/family are agreeable with and ensure patient has continuum of care. Case management will follow for discharge planning and send referrals as needed. Goals include: To assure continuity of care, To maximize coping skills, To assure patient is in a safe environment and To assure access to community resources. Plan includes: 1. Collaboration with patient, MD, direct care nurse, Senior Animal Trainer, and other members of the health care team to assure needed interventions completed. 2. Return patient to optimal level of self-care post discharge. 3. Development Advisor will follow for Discharge Planning - interventions as needed 4. Anticipated level of care at discharge 5. Planned Discharge Disposition QUAN Zacarias, ACM-SW, [facility] [phone] ER/WAITRESS CAFETERIA * Plan of Care - Vanessa Zaman, PT - 12/16/2023 12:09 PM CST Problem: PT Misc Goal: Patient to perform supine to/from sit with SBA Outcome: Progressing Goal: Patient to perform sit to/from stand with SBA Outcome: Progressing Goal: Patient to perform bed to/from chair with SBA Outcome: Progressing Goal: Patient to ambulate 50' using least restrictive device and CGA Outcome: Progressing Goal: Patient to propel w/c 150' using rasheed-technique modified independent Outcome: Progressing Goal: Patient to perform HEP with SBA Outcome: Progressing Goal: Patient to perform 2 steps using appropriate technique and minimal assist Outcome: Progressing Goal: Patient and family to attend family training session Outcome: Progressing ER/WAITRESS CAFETERIA * Plan of Care - Gela Gann RN - 12/16/2023 10:52 AM CST Problem: Nutritional Goal: Patient's nutrient intake appropriate for improving, restoring or maintaining nutritional needs Outcome: Progressing Flowsheets (Taken 12/16/2023 104) Patient's nutrient intake appropriate for improving, restoring, or maintaining nutritional needs: Assess nutritional status, identifying any signs and symptoms of altered nutrition Monitor oral nutrient intake, labs, and treatment plans Recommend appropriate diets, oral nutritional supplements and vitamin/mineral supplements Problem: Swallowing Goal: Patient's ability to maintain safety and efficiency of swallowing without signs of aspirationwill improve Outcome: Progressing Flowsheets (Taken 12/16/2023 104) Patient's ability to maintain safety and effiency of swallowing without signs of aspiration will improve: Monitor signs and symptoms of aspiration Assist with eating, as needed Provide appropriate consistency, texture and type of food to avoid choking Problem: Bowel Elimination Goal: Patient will maintain or return to baseline bowel function Outcome: Progressing Flowsheets (Taken 12/16/2023 104) Patient will maintain or return to baseline bowel function: Assess bowel function, evaluate bowel sounds and signs Monitor amount, characteristics and/or frequency of stool Monitor for signs and symptoms of constipation Goal: Patient will be continent of stool Outcome: Progressing Flowsheets (Taken 12/16/20231048) Patient will be continent of stool: Encourage toileting Problem: Bladder/Voiding Goal: Patient will be continent of urine Outcome: Progressing Flowsheets (Taken 12/16/20231048) Patient will be continent of urine: Encourage toileting Monitor intake and output Problem: Safety Goal: Patient will demonstrate safety requirements appropriate to situation/environment Outcome: Progressing Flowsheets (Taken 12/16/20231048) Patient will demonstrate safety requirements appropriate to situation/environment: Lock brakes on wheelchair Use gait belt during all transfers Problem: Activity Goal: Patient's ability to tolerate activity will improve Outcome: Progressing Flowsheets (Taken 12/16/20231048) Patient's ability to tolerate activity will improve: Follow hip precautions during transfers Assist with repositioning, as needed Plan scheduling of activities to allow periods of rest Assess response to activities Problem: Skin Integrity Goal: Patient's skin integrity remains intact Outcome: Progressing Flowsheets (Taken 12/16/20231048) Patient's skin integrity remains intact: Assess and document risk factors for pressure ulcer development Assess and document skin integrity Monitor for areas of redness and/or skin breakdown Goal: Patient will show no evidence of further tissue damage with pressure reduction techniques andpreventative skin care measures Outcome: Progressing Flowsheets (Taken 12/16/20231048) Patient will show no evidence of further tissue damage with pressure reduction techniques and preventative skin care measures: Use precautions to protect skin integrity Provide pressure-redistribution chair cushion Provide moisture management and/or incontinence care Problem: Fall Risk Goal: Patient will remain free from falls Outcome: Progressing Flowsheets (Taken 12/16/20231048) Patient will remain free from falls: Assess risk factors for falls Implement fall prevention measures Collaborate with other disciplines Goal: Patient's ability to state ways to decrease the risk of falls will improve Outcome: Progressing Flowsheets (Taken 12/16/20231048) Patient's ability to state ways to decrease the risk of falls will improve: Teach fall prevention measures Teach information regarding appropriate environmental changes Goal: Patient will remain free from injury from falls Outcome: Progressing Flowsheets (Taken 12/16/20231048) Patient will remain free from injury from falls: Provide safe environment for activities of daily living in hospital environment Problem: Discharge Planning Goal: Patient's understanding of discharge needs will improve Outcome: Progressing Goals: Clinical Goals for the Shift: VSS, Safety Summary: Patient safety maintained and comfort monitored. ER/WAITRESS CAFETERIA * Plan of Care - Lianet Reyna - 12/16/2023 5:04 AM CST Problem: Nutritional Goal: Patient's nutrient intake appropriate for improving, restoring or maintaining nutritional needs Outcome: Progressing Problem: Swallowing Goal: Patient's ability to maintain safety and efficiency of swallowing without signs of aspirationwill improve Outcome: Progressing Problem: Bowel Elimination Goal: Patient will maintain or return to baseline bowel function Outcome: Progressing Goal: Patient will be continent of stool Outcome: Progressing Problem: Bladder/Voiding Goal: Patient will be continent of urine Outcome: Progressing Problem: Safety Goal: Patient will demonstrate safety requirements appropriate to situation/environment Outcome: Progressing Problem: Activity Goal: Patient's ability to tolerate activity will improve Outcome: Progressing Problem: Skin Integrity Goal: Patient's skin integrity remains intact Outcome: Progressing Goal: Patient will show no evidence of further tissue damage with pressure reduction techniques andpreventative skin care measures Outcome: Progressing Problem: Fall Risk Goal: Patient will remain free from falls Outcome: Progressing Goal: Patient's ability to state ways to decrease the risk of falls will improve Outcome: Progressing Goal: Patient will remain free from injury from falls Outcome: Progressing Problem: Discharge Planning Goal: Patient's understanding of discharge needs will improve Outcome: Progressing Goals: Clinical Goals for the Shift: VSS, Safety Summary: ER/WAITRESS CAFETERIA * Plan of Care - Cinthya Watters RN - 12/15/2023 3:39 PM CST Goals: Clinical Goals for the Shift: safety and stable vs Summary: Patient new admit to rehab. Oriented to the unit. Fall and safety precautions are in place. Will continue to monitor patient. Problem: Nutritional Goal: Patient's nutrient intake appropriate for improving, restoring or maintaining nutritional needs Outcome: Progressing Problem: Swallowing Goal: Patient's ability to maintain safety and efficiency of swallowing without signs of aspirationwill improve Outcome: Progressing Problem: Bowel Elimination Goal: Patient will maintain or return to baseline bowel function Outcome: Progressing Goal: Patient will be continent of stool Outcome: Progressing Problem: Bladder/Voiding Goal: Patient will be continent of urine Outcome: Progressing Problem: Safety Goal: Patient will demonstrate safety requirements appropriate to situation/environment Outcome: Progressing Problem: Activity Goal: Patient's ability to tolerate activity will improve Outcome: Progressing Problem: Skin Integrity Goal: Patient's skin integrity remains intact Outcome: Progressing Goal: Patient will show no evidence of further tissue damage with pressure reduction techniques andpreventative skin care measures Outcome: Progressing Problem: Fall Risk Goal: Patient will remain free from falls Outcome: Progressing Goal: Patient's ability to state ways to decrease the risk of falls will improve Outcome: Progressing Goal: Patient will remain free from injury from falls Outcome: Progressing Problem: Discharge Planning Goal: Patient's understanding of discharge needs will improve Outcome: Progressing ER/WAITRESS CAFETERIA documented in this encounter Plan of Treatment Upcoming Encounters Date Type Department Care Team (Latest Contact Info) Description 10/23/2024 10:00 AM WAITER/WAITRESS CAFETERIA Hospital Encounter [facility] Operating Room [address] [place] [address] [place] [address] [address] 10/23/2024 10:00 AM WAITER/WAITRESS CAFETERIA - 10/23/2024 1:00 PM WAITER/WAITRESS CAFETERIA Surgery [facility] Room [address] [place] [address] [place] [address] [address] ARTHROPLASTY TOTAL KNEE LEFT Scheduled Procedures Name Priority Associated Diagnoses Date/Ti me ARTHROPLASTY TOTAL KNEE left knee osteoarthritis 10/23/2024 10:00 AM WAITER/WAITRESS CAFETERIA ESOPHAGOGASTRODUODENOSCOPY Dysphagia, unspecified type Scheduled Referrals Name Type Priority Associated Diagnoses Order Schedule Ambulatory referral to Home Health Outpatient Referral Routine Acute CVA (cerebrovascular accident) (HCC) [I63.9] 1 Occurrences starting 12/29/2023 until 03/30/2024 documented as of this encounter Procedures Procedure Name Priority Date/Time Associated Diagnosis Comments EGFR Routine 01/03/2024 4:23 AM CDT DIFFERENTIAL AUTO Routine 01/03/2024 4:2 3 AM CDT CBC WITH AUTO DIFFERENTIAL Routine 01/03/2024 4:23 AM CDT COMPREHENSIVE METABOLIC PANEL Routine 01/03/2024 4:23 AM CDT EGFR Routine 12/27/2023 4:38 AM CDT DIFFERENTIAL AUTO Routine 12/27/2023 4:3 8 AM CDT CBC WITH AUTO DIFFERENTIAL Routine 12/27/2023 4:38 AM CDT COMPREHENSIVE METABOLIC PANEL Routine 12/27/2023 4:38 AM CDT XR SHOULDER LEFT 2 OR MORE VIEWS IP Routine 12/23/2023 12:07 PM CDT EGFR Routine 12/20/2023 4:04 AM CDT DIFFERENTIAL AUTO Routine 12/20/2023 4:0 4 AM CDT CBC WITH AUTO DIFFERENTIAL Routine 12/20/2023 4:04 AM CDT COMPREHENSIVE METABOLIC PANEL Routine 12/20/2023 4:04 AM CDT EGFR Routine 12/16/2023 4:11 AM WAITER/WAITRESS CAFETERIA DIFFERENTIAL AUTO Routine 12/16/2023 4:1 1 AM WAITER/WAITRESS CAFETERIA CBC WITH AUTO DIFFERENTIAL Routine 12/16/2023 4:11 AM WAITER/WAITRESS CAFETERIA COMPREHENSIVE METABOLIC PANEL Routine 12/16/2023 4:11 AM WAITER/WAITRESS CAFETERIA documented in this encounter Results * eGFR (01/03/2024 4:23 AM CDT) eGFR 60 mL/min/1. 73 m2 Comment: Interpretive Data Reference [...] interpretive data was last reviewed 2021. Blood 01/03/2024 4:23 AM CDT 01/03/2024 4:50 AM CDT Becky Montana MD LAB BLOOD ORDERABL ES Final Result [facility] [address] Department [place] [address] * (ABNORMAL) Differential, auto (01/03/2024 4:23 AM CDT) Neutrophil abs 4.3 1.5 - 6.5 K/cumm Imm gran abs 0.0 0.0 - 0.1 K/cumm [facility] Lymphocyte abs 2.3 0.8 - 3.3 K/cumm [facility] Monocyte abs 1.0(H) 0.2 - 0.8 K/cumm [facility] Eosinophil abs 0.3 0.0 - 0.5 K/cumm [facility] Basophil abs 0.1 0.0 - 0.1 K/cumm [facility] Neutrophil pct 53.6 % [facility] Comment: Interpretive Data Percent cell count reference ranges are not reported, since discordance with absolute values may lead to misinterpretation of CBC data. Current Interpretive Data was last revised on 2018. Imm gran pct 0.1 % [facility] Comment: Interpretive Data Percent cell count reference ranges are not reported, since discordance with absolute values may lead to misinterpretation of CBC data. Current Interpretive Data was last revised on 2018. Lymphocyte pct 28.8 % [facility] Comment: Interpretive Data Percent cell count reference ranges are not reported, since discordance with absolute values may lead to misinterpretation of CBC data. Current Interpretive Data was last revised on 2018. Monocyte pct 12.2 % [facility] Comment: Interpretive Data Percent cell count reference ranges are not reported, since discordance with absolute values may lead to misinterpretation of CBC data. Current Interpretive Data was last revised on 2018. Eosinophil pct 4.3 % [facility] Comment: Interpretive Data Percent cell count reference ranges are not reported, since discordance with absolute values may lead to misinterpretation of CBC data. Current Interpretive Data was last revised on 2018. Basophil pct 1.0 % [facility] Comment: Interpretive Data Percent cell count reference ranges are not reported, since discordance with absolute values may lead to misinterpretation of CBC data. Current Interpretive Data was last revised on 2018. Blood 01/03/2024 4:23 AM CDT 01/03/2024 4:51 AM CDT us Becky Montana MD LAB BLOOD ORDERABL ES Final Result [facility] [address] Department [place] [address] * (ABNORMAL) CBC with auto differential (01/03/2024 4:23 AM CDT) Pathologist [facility] WBC 8.0 3.8 - 9.9 K/cumm Hgb 11.7(L) 13.0 - 17.5 g/dL [facility] Hct 35.6(L) 38.9 - 50.3 % [facility] Plt 228 150 - 400 K/cumm [facility] MPV 11.0 9.1 - 12.3 fL [facility] RBC 3.74(L) 4.30 - 5.80 M/cumm [facility] MCV 95.2 81.3 - 96.4 fL [facility] MCH 31.3 27.1 - 33.3 pg [facility] MCHC 32.9 32.3 - 35.7 g/dL [facility] RDW CV 13.2 11.1 - 14.9 % [facility] RDW SD 46.9 35.7 - 48.1 fL [facility] NRBC abs 0.00 0.00 - 0.01 K/cumm [facility] Blood 01/03/2024 4:23 AM CDT 01/03/2024 4:51 AM CDT us Becky Montana MD LAB BLOOD ORDERABL ES Final Result [facility] [address] Department [place] [address] * (ABNORMAL) Comprehensive metabolic panel (01/03/2024 4:23 AM CDT) Pathologist [facility] Sodium 141 135 - 145 mmol/L Potassium, pl 4.2 3.3 - 4.9 mmol/L [facility] Chloride 108 97 - 110 mmol/L [facility] CO2 26 22 - 32 mmol/L [facility] Anion gap 7 2 - 15 mmol/L [facility] BUN 12 6 - 25 mg/dL [facility] Creatinine 1.22 0.80 - 1.30 mg/dL [facility] Glucose 105 70 - 199 mg/dL [facility] Comment: Interpretive Data Fasting glucose >/= 126 [...] classification and Diagnosis of Diabetes Diabetes Care 202; 46: S19-S40. Current interpretive data was last revised 2022. Calcium 8.9 8.5 - 10.3 mg/dL [facility] Bilirubin, total 0.3 0.1 - 1.2 mg/dL [facility] Protein, pl 5.8(L) 6.5 - 8.5 g/dL [facility] Albumin 3.0(L) 3.5 - 5.0 g/dL [facility] Alk phos 100 40 - 130 Units/L [facility] ALT 23 7 - 55 Units/L [facility] AST 19 10 - 50 Units/L [facility] Blood 01/03/2024 4:23 AM CDT 01/03/2024 4:50 AM CDT us Becky Montana MD LAB BLOOD ORDERABL ES Final Result [facility] [address] Department [place] [address] * eGFR (12/27/2023 4:38 AM CDT) Pathologist [facility] eGFR 56 mL/min/1. 73 m2 Comment: Interpretive Data Reference [...] interpretive data was last reviewed 2021. Blood 12/27/2023 4:38 AM CDT 12/27/2023 5:01 AM CDT us Becky Montana MD LAB BLOOD ORDERABL ES Final Result [facility] [place] [id number] [address] Department [place] [address] * Differential, auto (12/27/2023 4:38 AM CDT) Neutrophil abs 3.8 1.5 - 6.5 K/cumm Imm gran abs 0.0 0.0 - 0.1 K/cumm [facility] [place] Lymphocyte abs 1.9 0.8 - 3.3 K/cumm [facility] [place] Monocyte abs 0.6 0.2 - 0.8 K/cumm [facility] [place] Eosinophil abs 0.4 0.0 - 0.5 K/cumm [facility] [place] Basophil abs 0.1 0.0 - 0.1 K/cumm [facility] [place] Neutrophil pct 56.5 % [facility] [place] Comment: Interpretive Data Percent cell count reference ranges are not reported, since discordance with absolute values may lead to misinterpretation of CBC data. Current Interpretive Data was last revised on 2018. Imm gran pct 0.3 % [facility] Comment: Interpretive Data Percent cell count reference ranges are not reported, since discordance with absolute values may lead to misinterpretation of CBC data. Current Interpretive Data was last revised on 2018. Lymphocyte pct 27.7 % [facility] Comment: Interpretive Data Percent cell count reference ranges are not reported, since discordance with absolute values may lead to misinterpretation of CBC data. Current Interpretive Data was last revised on 2018. Monocyte pct 9.4 % [facility] [place] Comment: Interpretive Data Percent cell count reference ranges are not reported, since discordance with absolute values may lead to misinterpretation of CBC data. Current Interpretive Data was last revised on 2018. Eosinophil pct 5.4 % [facility] [place] Comment: Interpretive Data Percent cell count reference ranges are not reported, since discordance with absolute values may lead to misinterpretation of CBC data. Current Interpretive Data was last revised on 2018. Basophil pct 0.7 % [facility] [place] Comment: Interpretive Data Percent cell count reference ranges are not reported, since discordance with absolute values may lead to misinterpretation of CBC data. Current Interpretive Data was last revised on 2018. Blood 12/27/2023 4:38 AM CDT 12/27/2023 5:00 AM CDT Becky Montana MD LAB BLOOD ORDERABL ES Final Result [facility] [place] [id number] [address] Department [place] [address] * (ABNORMAL) CBC with auto differential (12/27/2023 4:38 AM CDT) WBC 6.7 3.8 - 9.9 K/cumm Hgb 12.8(L) 13.0 - 17.5 g/dL [facility] [place] Hct 39.3 38.9 - 50.3 % [facility] [place] Plt 235 150 - 400 K/cumm [facility] [place] MPV 10.4 9.1 - 12.3 fL [facility] [place] RBC 4.10(L) 4.30 - 5.80 M/cumm [facility] [place] MCV 95.9 81.3 - 96.4 fL [facility] [place] MCH 31.2 27.1 - 33.3 pg [facility] [place] MCHC 32.6 32.3 - 35.7 g/dL [facility] [place] RDW CV 13.0 11.1 - 14.9 % [facility] RDW SD 46.0 35.7 - 48.1 fL [facility] NRBC abs 0.00 0.00 - 0.01 K/cumm [facility] Blood 12/27/2023 4:38 AM CDT 12/27/2023 5:00 AM CDT Becky Montana MD LAB BLOOD ORDERABL [place] [id number] [address] Department [place] [address] * (ABNORMAL) Comprehensive metabolic panel (12/27/2023 4:38 AM CDT) Sodium 141 135 - 145 mmol/L Potassium, pl 4.2 3.3 - 4.9 mmol/L [facility] Chloride 107 97 - 110 mmol/L [facility] CO2 26 22 - 32 mmol/L [facility] Anion gap 8 2 - 15 mmol/L [facility] BUN 18 6 - 25 mg/dL [facility] Creatinine 1.30 0.80 - 1.30 mg/dL [facility] Glucose 107 70 - 199 mg/dL [facility] Comment: Interpretive Data Fasting glucose >/= 126 [...] classification and Diagnosis of Diabetes Diabetes Care 202; 46: S19-S40. Current interpretive data was last revised 2022. Calcium 8.9 8.5 - 10.3 mg/dL [facility] Bilirubin, total 0.5 0.1 - 1.2 mg/dL [facility] Protein, pl 6.2(L) 6.5 - 8.5 g/dL [facility] Albumin 3.2(L) 3.5 - 5.0 g/dL [facility] Alk phos 115 40 - 130 Units/L [facility] ALT 22 7 - 55 Units/L [facility] AST 23 10 - 50 Units/L [facility] Blood 12/27/2023 4:38 AM CDT 12/27/2023 5:01 AM CDT us Becky Montana MD LAB BLOOD ORDERABL ES Final Result [place] [id number] [address] Department of Laboratories [place] [id number] * XR Shoulder Left 2 or More Views (12/23/2023 12:07 PM CDT) Anatomical Region Laterality Modality Upper Extremities, Shoulder Left Comp uted Radiography 12/23/2023 12:1 0 PM CDT Impressions 12/23/2023 12:10 PM CDT Mild degenerative changes stable since previous Electronically signed by: Beka Draper M.D. Narrative 12/23/2023 12:10 PM CDT EXAMINATION: XR SHOULDER LEFT 2 OR MORE VIEWS HISTORY: Shoulder injury FINDINGS: Compared with study of 03/23/2023, normal alignment without fracture or dislocation. ??Minor degenerative changes the glenohumeral joint. ??Normal AC joint. ??No soft tissue normalities. ??Surgical clips noted in the neck and mediastinum Procedure Note Beka Draper MD - 12/23/2023 EXAMINATION: XR SHOULDER LEFT 2 OR MORE VIEWS HISTORY: Shoulder injury FINDINGS: Compared with study of 03/23/2023, normal alignment without fracture or dislocation. Minor degenerative changes the glenohumeral joint. Normal AC joint. No soft tissue normalities. Surgical clips noted in the neck and mediastinum IMPRESSION: Mild degenerative changes stable since previous Electronically signed by: Beka Draper M.D. us Becky Montana MD IMG XR PROCEDURES Final Result * eGFR (12/20/2023 4:04 AM CDT) eGFR 59 mL/min/1. 73 m2 Comment: Interpretive Data Reference [...] interpretive data was last reviewed 2021. Blood 12/20/2023 4:04 AM CDT 12/20/2023 4:39 AM CDT us Becky Montana MD LAB BLOOD ORDERABL ES Final Result [facility] [place] [address] [address] Department [place] [address] * (ABNORMAL) Differential, auto (12/20/2023 4:04 AM CDT) Neutrophil abs 5.0 1.5 - 6.5 K/cumm Imm gran abs 0.0 0.0 - 0.1 K/cumm [facility] Lymphocyte abs 1.4 0.8 - 3.3 K/cumm [facility] Monocyte abs 1.2(H) 0.2 - 0.8 K/cumm [facility] [place] Eosinophil abs 0.1 0.0 - 0.5 K/cumm [facility] Basophil abs 0.1 0.0 - 0.1 K/cumm [facility] Neutrophil pct 63.4 % [facility] Comment: Interpretive Data Percent cell count reference ranges are not reported, since discordance with absolute values may lead to misinterpretation of CBC data. Current Interpretive Data was last revised on 2018. Imm gran pct 0.5 % [facility] Comment: Interpretive Data Percent cell count reference ranges are not reported, since discordance with absolute values may lead to misinterpretation of CBC data. Current Interpretive Data was last revised on 2018. Lymphocyte pct 18.1 % [facility] Comment: Interpretive Data Percent cell count reference ranges are not reported, since discordance with absolute values may lead to misinterpretation of CBC data. Current Interpretive Data was last revised on 2018. Monocyte pct 15.5 % [facility] Comment: Interpretive Data Percent cell count reference ranges are not reported, since discordance with absolute values may lead to misinterpretation of CBC data. Current Interpretive Data was last revised on 2018. Eosinophil pct 1.6 % [facility] Comment: Interpretive Data Percent cell count reference ranges are not reported, since discordance with absolute values may lead to misinterpretation of CBC data. Current Interpretive Data was last revised on 2018. Basophil pct 0.9 % [facility] Comment: Interpretive Data Percent cell count reference ranges are not reported, since discordance with absolute values may lead to misinterpretation of CBC data. Current Interpretive Data was last revised on 2018. Blood 12/20/2023 4:0 4 AM CDT 12/20/2023 4:39 AM CDT us Becky Montana MD LAB BLOOD ORDERABL ES Final Result [place] [id number] [address] Department [place] [address] * CBC with auto differential (12/20/2023 4:04 AM CDT) WBC 7.9 3.8 - 9.9 K/cumm Hgb 13.7 13.0 - 17.5 g/dL [facility] Hct 42.0 38.9 - 50.3 % [facility] [place] Plt 253 150 - 400 K/cumm [facility] [place] MPV 10.7 9.1 - 12.3 fL [facility] [place] RBC 4.36 4.30 - 5.80 M/cumm [facility] [place] MCV 96.3 81.3 - 96.4 fL [facility] [place] MCH 31.4 27.1 - 33.3 pg [facility] [place] MCHC 32.6 32.3 - 35.7 g/dL [facility] [place] RDW CV 13.1 11.1 - 14.9 % [facility] [place] RDW SD 46.9 35.7 - 48.1 fL [facility] [place] NRBC abs 0.00 0.00 - 0.01 K/cumm [facility] [place] Blood 12/20/2023 4:04 AM CDT 12/20/2023 4:39 AM CDT Becky Montana MD LAB BLOOD ORDERABL ES Final Result [facility] [place] [address] [address] Department [place] [address] * (ABNORMAL) Comprehensive metabolic panel (12/20/2023 4:04 AM CDT) Sodium 139 135 - 145 mmol/L Potassium, pl 4.6 3.3 - 4.9 mmol/L [facility] [place] Chloride 104 97 - 110 mmol/L [facility] [place] CO2 25 22 - 32 mmol/L [facility] [place] Anion gap 10 2 - 15 mmol/L [facility] [place] BUN 19 6 - 25 mg/dL [facility] [place] Creatinine 1.25 0.80 - 1.30 mg/dL [facility] [place] Glucose 112 70 - 199 mg/dL [facility] [place] Comment: Interpretive Data Fasting glucose >/= 126 [...] interpretive data was last revised 2022. Calcium 9.0 8.5 - 10.3 mg/dL [facility] Bilirubin, total 0.4 0.1 - 1.2 mg/dL [facility] Protein, pl 6.9 6.5 - 8.5 g/dL [facility] Albumin 3.4(L) 3.5 - 5.0 g/dL [facility] Alk phos 117 40 - 130 Units/L [facility] ALT 16 7 - 55 Units/L [facility] AST 24 10 - 50 Units/L [facility] Blood 12/20/2023 4:04 AM CDT 12/20/2023 4:39 AM CDT us Becky Montana MD LAB BLOOD ORDERABL ES Final [facility] [id number] [address] Department [place] [address] * eGFR (12/16/2023 4:11 AM [facility] [place]) eGFR 69 mL/min/1. 73 m2 Comment: Interpretive Data Reference [...] interpretive data was last reviewed 2021. Blood 12/16/2023 4:11 AM [facility]ITER[facility]ESS [place] 12/16/2023 4:28 AM WAITER/WAITRESS [place] us Becky Montana MD LAB BLOOD ORDERABL ES Final Result [facility] [place] [address] [address] Department [place] [address] * (ABNORMAL) Differential, auto (12/16/2023 4:11 AM WAITER/WAITRESS [place]) Neutrophil abs 5.5 1.5 - 6.5 K/cumm Imm gran abs 0.0 0.0 - 0.1 K/cumm [facility] Lymphocyte abs 2.2 0.8 - 3.3 K/cumm [facility] [place] Monocyte abs 1.1(H) 0.2 - 0.8 K/cumm [facility] [place] Eosinophil abs 0.3 0.0 - 0.5 K/cumm [facility] Basophil abs 0.1 0.0 - 0.1 K/cumm [facility] [place] Neutrophil pct 60.3 % [facility] [place] Comment: Interpretive Data Percent cell count reference ranges are not reported, since discordance with absolute values may lead to misinterpretation of CBC data. Current Interpretive Data was last revised on 2018. Imm gran pct 0.3 % [facility] [place] Comment: Interpretive Data Percent cell count reference ranges are not reported, since discordance with absolute values may lead to misinterpretation of CBC data. Current Interpretive Data was last revised on 2018. Lymphocyte pct 23.7 % [facility] [place] Comment: Interpretive Data Percent cell count reference ranges are not reported, since discordance with absolute values may lead to misinterpretation of CBC data. Current Interpretive Data was last revised on 2018. Monocyte pct 11.5 % [facility] [place] Comment: Interpretive Data Percent cell count reference ranges are not reported, since discordance with absolute values may lead to misinterpretation of CBC data. Current Interpretive Data was last revised on 2018. Eosinophil pct 3.5 % [facility] Comment: Interpretive Data Percent cell count reference ranges are not reported, since discordance with absolute values may lead to misinterpretation of CBC data. Current Interpretive Data was last revised on 2018. Basophil pct 0.7 % [facility] Comment: Interpretive Data Percent cell count reference ranges are not reported, since discordance with absolute values may lead to misinterpretation of CBC data. Current Interpretive Data was last revised on 2018. Blood 12/16/2023 4:11 AM WAITER/[facility]RESS [place] 12/16/2023 4:27 AM WAITER/WAITRESS [place] us Becky Montana MD LAB BLOOD ORDERABL ES Final Result [facility] [place] [address] [address] Department [place] [address] * (ABNORMAL) CBC with auto differential (12/16/2023 4:11 AM WAITER/WAITRESS [place]) WBC 9.2 3.8 - 9.9 K/cumm Hgb 13.3 13.0 - 17.5 g/dL [facility] Hct 40.3 38.9 - 50.3 % [facility] [place] Plt 259 150 - 400 K/cumm [facility] [place] MPV 10.1 9.1 - 12.3 fL [facility] [place] RBC 4.14(L) 4.30 - 5.80 M/cumm [facility] [place] MCV 97.3(H) 81.3 - 96.4 fL [facility] [place] MCH 32.1 27.1 - 33.3 pg [facility] MCHC 33.0 32.3 - 35.7 g/dL [facility] RDW CV 13.2 11.1 - 14.9 % [facility] RDW SD 46.9 35.7 - 48.1 fL [facility] NRBC abs 0.00 0.00 - 0.01 K/cumm [facility] Blood 12/16/2023 4:11 AM WAITER/WAITRESS [place] 12/16/2023 4:27 AM WAITER/WAITRESS [employer] us Becky Montana MD LAB BLOOD ORDERABL ES Final Result [facility] [id number] [address] Department [place] [address] * (ABNORMAL) Comprehensive metabolic panel (12/16/2023 4:11 AM WAITER/WAITRESS [place]) Sodium 138 135 - 145 mmol/L Potassium, pl 4.3 3.3 - 4.9 mmol/L [facility] Chloride 103 97 - 110 mmol/L [facility] CO2 25 22 - 32 mmol/L [facility] Anion gap 10 2 - 15 mmol/L [facility] BUN 22 6 - 25 mg/dL [facility] Creatinine 1.09 0.80 - 1.30 mg/dL [facility] Glucose 107 70 - 199 mg/dL [facility] Comment: Interpretive Data Fasting glucose >/= 126 [...] classification and Diagnosis of Diabetes Diabetes Care 202; 46: S19-S40. Current interpretive data was last revised 2022. Calcium 8.9 8.5 - 10.3 mg/dL [facility] Bilirubin, total 0.4 0.1 - 1.2 mg/dL [facility] Protein, pl 6.5 6.5 - 8.5 g/dL [facility] Albumin 3.4(L) 3.5 - 5.0 g/dL [facility] Alk phos 116 40 - 130 Units/L [facility] ALT 11 7 - 55 Units/L [facility] AST 16 10 - 50 Units/L [facility] Blood 12/16/2023 4:11 AM WAITER/WAITRESS [place] 12/16/2023 4:28 AM WAITER/WAITRESS [employer] us Becky Montana MD LAB BLOOD ORDERABL ES Final Result [facility] [address] [address] Department [place] [address] documented in this encounter Visit Diagnoses Diagnosis Acute CVA (cerebrovascular accident) (HCC)- Primary Acute CVA (cerebrovascular accident) (HCC) [I63.9] Moderate malnutrition (CMS/HCC) Primary osteoarthritis of left knee documented in this encounter Admitting Diagnoses Diagnosis Acute CVA (cerebrovascular accident) (HCC) documented in this encounter Administered Medications Inactive Administered Medications - up to 3 most recent administrations Medication Order MAR Action Action Date Dose Rate Site acetaminophen (TYLENOL) tablet 650 mg 650 mg, oral, Every 6 hours PRN, 1st line for pain, fever, fever greater than 38.3 C, Starting on Wed12/15/23 at 1528, Indications: Fever, PainIndications:Fever,Pain Given 01/05/2024 8:49 AM CDT 650 mg Given 01/04/2024 8:18 AM CDT 650 mg Le ft Shoulder Given 01/03/2024 7:47 AM CDT 650 mg ascorbic acid (VITAMIN C) tablet/chewable tablet 500 mg 500 mg, oral, 2 times daily, First dose on Wed01/03/24 at 1300 Given 01/07/2024 8:32 AM CDT 500 mg Given 01/06/2024 8:46 PM CDT 500 mg Given 01/06/2024 8:34 AM CDT 500 mg aspirin chewable tablet 81 mg 81 mg, oral, Daily, First dose (after last modification) on Wed12/16/23 at 0900 Given 01/07/2024 8:32 AM CDT 81 mg Given 01/06/2024 8:34 AM CDT 81 mg Given 01/05/2024 8:49 AM CDT 81 mg bisacodyl EC (DULCOLAX EC) tablet 10 mg 10 mg, oral, Once, On Wed12/17/23 at 1200, For 1 dose, Do not crush, chew, cut, dissolve, open or otherwise manipulate tablet/capsule., Indications: constipationIndications:constipation Given 12/17/2023 1:00 PM WAITER/WAITRESS [facility] 10 mg calcium carbonate (TUMS) chewable tablet 1,000 mg 1,000 mg (400 mg of elemental calcium), oral, 3 times daily PRN, indigestion, Starting on Wed12/15/23 at 1528 cetirizine (ZyrTEC) tablet 10 mg 10 mg, oral, Daily, First dose on Wed12/24/23 at 1200 Given 01/07/2024 8:32 AM CDT 10 mg Given 01/06/2024 8:34 AM CDT 10 mg Given 01/05/2024 8:49 AM CDT 10 mg donepeziL (ARICEPT) tablet 10 mg 10 mg, oral, Nightly, First dose (after last modification) on Wed12/15/23 at 2100 Given 01/06/2024 8:46 PM CDT 10 mg Given 01/05/2024 9:30 PM CDT 10 mg Given 01/04/2024 8:32 PM CDT 10 mg enoxaparin (LOVENOX) syringe 40 mg 40 mg, subcutaneous, Daily (for enoxaparin), First dose (after last modification) on Wed12/15/23 at 2100, Indications: Deep Vein Thrombosis PreventionIndications:Deep Vein Thrombosis Prevention Given 01/06/2024 8:46 PM CDT 40 mg Right Lower Abdomen Given 01/05/2024 9:30 PM CDT 40 mg Le ft Lower Abdomen Given 01/04/2024 8:33 PM CDT 40 mg Ri ght Lower Abdomen fluticasone furoate-vilanteroL (BREO ELLIPTA) 100-25 mcg/dose inhaler 1 puff 1 puff, inhalation, Daily (respiratory technician), First dose (after last modification) on Wed12/16/23 at 0900 Given 01/06/2024 8:00 AM CDT 1 puff Given 01/05/2024 8:42 AM CDT 1 puff Given 01/04/2024 4:25 PM CDT 1 puff fluticasone propionate (FLONASE) 50 mcg/actuation nasal spray 1 spray 1 spray, each nostril, 2 times daily, First dose on Wed12/27/23 at 1115 Given 01/07/2024 8:33 AM CDT 1 spray Given 01/06/2024 8:46 PM CDT 1 spray Given 01/06/2024 8:37 AM CDT 1 spray gabapentin (NEURONTIN) capsule 300 mg 300 mg, oral, 3 times daily, First dose (after last modification) on Wed12/15/23 at 1600 Given 01/07/2024 8:32 AM CDT 300 mg Given 01/06/2024 8:46 PM CDT 300 mg Given 01/06/2024 4:47 PM CDT 300 mg guaiFENesin ER (MUCINEX) extended release tablet 600 mg 600 mg, oral, 2 times daily, First dose on Wed12/21/23 at 1230, Do not crush, chew, cut, dissolve, open or otherwise manipulate tablet/capsule. Given 01/07/2024 8:33 AM CDT 600 mg Given 01/06/2024 8:46 PM CDT 600 mg Given 01/06/2024 8:34 AM CDT 600 mg hydrocortisone 2.5 % cream topical, 2 times daily, First dose on Wed12/29/23 at 1145, Apply to affected area: rash Given 01/07/2024 8:33 AM CDT Given 01/06/2024 8:46 PM CDT Given 01/06/2024 8:34 AM CDT levothyroxine (SYNTHROID) tablet 150 mcg 150 mcg, oral, Daily (early AM), First dose (after last modification) on Wed12/16/23 at 0600, Administer on an empty stomach, preferably 30 minutes before breakfast. Take 4 hours apart from antacids, iron and calcium products. Separate from tube feeds, if applicable. Given 01/07/2024 6:51 AM CDT 150 mcg Given 01/06/2024 6:29 AM CDT 150 mcg Given 01/05/2024 6:34 AM CDT 150 mcg lidocaine (LIDODERM) 5 % patch 1 patch 1 patch, transdermal, Administer over 12 Hours, Every 24 hours, First dose on Wed12/23/23 at 1130, Do not cover the holes on the top side of the patch., Apply to affected area: shoulder, Laterality: Left Medication Applied 01/06/2024 4:50 PM CDT 1 patch Left Shoulder Medication Applied 01/05/2024 8:49 AM CDT 1 patch Left Shoulder Medication Applied 01/04/2024 10:27 AM CDT 1 patch Left Shoulder lidocaine (XYLOCAINE) 10 mg/mL (1 %) injection 100 mg 100 mg (10 mL), other, Once, On Wed12/29/23 at 1445, For 1 dose, Indications: Administration of Local AnesthesiaIndications:Administration of Local Anesthesia Given by Other 12/29/2023 2:51 PM CDT 100 mg methylPREDNISolone acetate (DEPO-medrol) injection 80 mg 80 mg, intra-articular, Once, On Wed12/29/23 at 1445, For 1 dose Given 12/29/2023 2:52 PM CDT 80 mg ondansetron (ZOFRAN) tablet 4 mg 4 mg, oral, 3 times daily PRN, nausea, vomiting, Starting on Wed12/15/23 at 1528 oxyCODONE (ROXICODONE) tablet 5 mg 5 mg, oral, Every 4 hours PRN, 2nd line for pain, Starting on Wed12/15/23 at 1528, Indications: PainIndications:Pain Given 12/23/2023 8:25 AM CDT 5 mg Given 12/23/2023 12:42 AM CDT 5 mg Given 12/22/2023 8:12 PM CDT [address] (PROTONIX) extended release tablet 40 mg 40 mg, oral, 2 times daily, First dose on Wed12/15/23 at 2100, Do not crush, chew, cut, dissolve, open or otherwise manipulate tablet/capsule., Indications: GI BleedIndications:GI Bleed Given 01/07/2024 8:32 AM CDT 40 mg Given 01/06/2024 8:46 PM CDT 40 mg Given 01/06/2024 8:34 AM CDT 40 mg polyethylene glycol (MIRALAX) packet 17 g 17 g, oral, Daily, First dose on Wed12/15/23 at 1600, Indications: constipationIndications:constipation Given 12/27/2023 8:34 AM CDT 17 g Given 12/26/2023 8:19 AM CDT 17 g Given 12/25/2023 7:56 AM CDT 17 g ramelteon (ROZEREM) tablet 8 mg 8 mg, oral, Nightly PRN, sleep, Starting on Wed12/15/23 at 1528, Indications: Sleep-Onset InsomniaIndications:Sleep-Onset Insomnia Given 01/06/2024 8:46 PM CDT 8 m g Given 01/05/2024 9:30 PM CDT 8 mg Given 01/04/2024 8:33 PM CDT 8 mg rosuvastatin (CRESTOR) tablet 40 mg 40 mg, oral, Daily, First dose (after last modification) on Wed12/16/23 at 0900, Indications: Secondary Stroke PreventionIndications:Secondary Stroke Prevention Given 01/07/2024 8:33 AM CDT 40 mg Given 01/06/2024 8:34 AM CDT 40 mg Given 01/05/2024 8:49 AM CDT 40 mg senna-docusate (PERICOLACE) 8.6-50 mg per tablet 1 tablet 1 tablet, oral, 2 times daily PRN, constipation, Starting on Wed12/15/23 at 1528, Indications: constipationIndications:constipation Given 01/04/2024 12:51 PM CDT 1 tabl et Given 12/19/2023 8:37 AM CDT 1 tablet Given 12/18/2023 8:39 AM 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 Given 01/06/2024 8:46 PM CDT 0.4 mg Given 01/05/2024 9:30 PM CDT 0.4 mg Given 01/04/2024 8:32 PM CDT 0.4 mg tiZANidine (ZANAFLEX) tablet 2 mg 2 mg, oral, 3 times daily PRN, muscle spasms, Starting on Wed12/15/23 at 1527, Administer on an empty stomach Given 12/27/2023 8:26 PM CDT 2 mg Given 12/27/2023 6:44 AM CDT 2 mg Given 12/26/2023 8:36 PM CDT 2 mg traMADoL (ULTRAM) tablet 50 mg 50 mg, oral, Every 6 hours PRN, 2nd line for pain, Starting on Wed12/24/23 at 1122 Given 01/05/2024 5:52 PM CDT 50 mg Given 01/03/2024 6:29 PM CDT 50 mg Le ft Shoulder Given 01/02/2024 10:26 PM CDT 50 mg documented in this encounter Discontinued Medications Medication Sig Discontinue Reason Start Date End Da te mirtazapine (REMERON) 7.5 mg tablet TAKE 1 TABLET BY MOUTH ONCE DAILY AT NIGHT Stop Taking at Discharge 12/19/2021 01/07/2024 sildenafiL, pulm.hypertension, (REVATIO) 20 mg tablet Take 1 tablet (20 mg total) by mouth daily Stop Taking at Discharge 04/17/2022 01/07/2024 furosemide (LASIX) 20 mg tablet Take 1 tablet (20 mg total) by mouth 2 (two) times a day Stop Taking at Discharge 01/07/2024 omeprazole (PriLOSEC) 20 mg capsule Take 2 capsules (40 mg total) by mouth daily Stop Taking at Discharge 10/13/2023 01/07/2024 permethrin (ELIMITE) 5 % cream APPLY FROM THE NECK DOWN AT NIGHT, WASH OFF IN THE MORNING, REPEAT IN 1 WEEK Stop Taking at Discharge 10/29/2023 01/07/2024 azithromycin (ZITHROMAX) 250 mg tablet TAKE 2 TABLETS BY MOUTH ON DAY 1, AND THEN TAKE 1 TABLET BY MOUTH ONCE A DAY ON DAY 2 THROUGH DAY 5 Stop Taking at Discharge 08/31/2023 01/07/2024 eszopiclone (LUNESTA) 2 mg tablet BRING TABLET WITH YOU TO SLEEP LAB Stop Taking at Discharge 11/15/2023 01/07/2024 triamcinolone (KENALOG) 0.1 % creamIndications:Skin Inflammation Apply topically 2 (two) times a day as needed for rash Or itch on the skin. Do not use on face, armpits, or groin. For more severe rash/itch, use clobetasol/mupirocin sent as a separate prescription. Stop Taking at Discharge 11/17/2023 01/07/2024 mupirocin (BACTROBAN) 2 % ointment Apply topically 2 (two) times a day If your most severe itchy rash has yellow crusts/flakes, then mix mupirocin 1:1 with clobetsol ointment before applying them to your rash. For less severe rash/itch, use triamcinolone cream sent as a separate prescription. Stop Taking at Discharge 11/17/2023 01/07/2024 pravastatin (PRAVACHOL) 10 mg tablet Take 1 tablet (10 mg total) by mouth daily Stop Taking at Discharge 12/01/2023 01/07/2024 spironolactone (ALDACTONE) 25 mg tablet Take 1 tablet (25 mg total) by mouth daily Stop Taking at Discharge 12/05/2023 01/07/2024 zolpidem (AMBIEN) 5 mg tablet Take 1 tablet (5 mg total) by mouth nightly at bedtime. Stop Taking at Discharge 11/15/2023 01/07/2024 documented as of this encounter Active and Recently Administered Medications Times are shown in CDT. Scheduled Medication Order 01/05/2024 01/06/2024 01/07/2024 ascorbic acid (VITAMIN C) tablet/chewable tablet 500 mg 500 mg, oral, 2 times daily, First dose on Wed01/03/24 at 1300 0849 (Given - Provider: Lizette Mike RN)2130 (Given - Provider: Katlyn Camarillo RN) 0834 (Given - Provider: Jewels Reeves RN)2045 (Given - Provider: Gurdeep Williamson LPN) 0832 (Given - Provider: Nelli Gamez RN) aspirin chewable tablet 81 mg 81 mg, oral, Daily, First dose (after last modification) on Jo 12/16/23 at 0900 0849 (Given - Provider: Lizette Mike RN) 0834 (Given - Provider: Jewels Reeves RN) 0832 (Given - Provider: Nelli Gamez, MARAH) cetirizine (ZyrTEC) tablet 10 mg 10 mg, oral, Daily, First dose on Wed12/24/23 at 1200 0849 (Given - Provider: Lizette Mike RN) 0834 (Given - Provider: Jewels Reeves RN) 0832 (Given - Provider: Nelli Gamez RN) donepeziL (ARICEPT) tablet 10 mg 10 mg, oral, Nightly, First dose (after last modification) on Wed12/15/23 at 2100 2130 (Given - Provider: Katlyn Camarillo RN) 2045 (Given - Provider: [place] Gladis Brown, SEO TEAM LEAD) enoxaparin (LOVENOX) syringe 40 mg 40 mg, subcutaneous, Daily (for enoxaparin), First dose (after last modification) on Wed12/15/23 at 2100, Indications: Deep Vein Thrombosis Prevention 2129 (Given - Provider: Katlyn Camarillo RN) 2045 (Given - Provider: Gurdeep Williamson LPN) fluticasone furoate-vilanteroL (BREO ELLIPTA) 100-25 mcg/dose inhaler 1 puff 1 puff, inhalation, Daily (respiratory technician), First dose (after last modification) on Wed12/16/23 at 0900 0842 (Given - Provider: Alis Martinez, COOKY PACKER) 0800 (Given - Provider: Aminta Workman, POLICE DETENTION ATTENDANT) 0900 (Due) fluticasone propionate (FLONASE) 50 mcg/actuation nasal spray 1 spray 1 spray, each nostril, 2 times daily, First dose on Wed12/27/23 at 1115 0856 (Given - Provider: Lizette Mike RN)2135 (Given - Provider: Katlyn Camarillo RN) 0837 (Given - Provider: Jewels Reeves RN)2045 (Given - Provider: Gurdeep Williamson LPN) 0833 (Given - Provider: Nelli Gamez RN) gabapentin (NEURONTIN) capsule 300 mg 300 mg, oral, 3 times daily, First dose (after last modification) on Wed12/15/23 at 1600 0849 (Given - Provider: Lizette Mike RN)1636 (Given - Provider: Yady Sandhu RN)2129 (Given - Provider: Katlyn Camarillo RN) 0834 (Given - Provider: Jewels Reeves RN)1647 (Given - Provider: Jewels Reeves RN)2045 (Given - Provider: Gurdeep Williamson LPN) 0832 (Given - Provider: Nelli Gamez RN) guaiFENesin ER (MUCINEX) extended release tablet 600 mg 600 mg, oral, 2 times daily, First dose on Wed12/21/23 at 1230, Do not crush, chew, cut, dissolve, open or otherwise manipulate tablet/capsule. 0849 (Given - Provider: Lizette Mike RN)2130 (Given - Provider: Katlyn Camarillo RN) 0834 (Given - Provider: Jewels Reeves RN)2045 (Given - Provider: Gurdeep Williamson LPN) 0833 (Given - Provider: Nelli Gamez RN) hydrocortisone 2.5 % cream topical, 2 times daily, First dose on Wed12/29/23 at 1145, Apply to affected area: rash 0856 (Given - Provider: Lizette Mike RN)2130 (Given - Provider: Katlyn Camarillo RN) 0834 (Given - Provider: Jewels Reeves RN)2045 (Given - Provider: Gurdeep Williamson LPN) 0833 (Given - Provider: Nelli Gamez RN) levothyroxine (SYNTHROID) tablet 150 mcg 150 mcg, oral, Daily (early AM), First dose (after last modification) on Wed12/16/23 at 0600, Administer on an empty stomach, preferably 30 minutes before breakfast. Take 4 hours apart from antacids, iron and calcium products. Separate from tube feeds, if applicable. 0634 (Given - Provider: Gurdeep Williamson LPN) 0629 (Given - Provider: Katlyn Camarillo RN) 0651 (Given - Provider: Gurdeep Williamson LPN) lidocaine (LIDODERM) 5 % patch 1 patch 1 patch, transdermal, Administer over 12 Hours, Every 24 hours, First dose on Wed12/23/23 at 1130, Do not cover the holes on the top side of the patch., Apply to affected area: shoulder, Laterality: Left 0849 (Medication Applied - Provider: Lizette Mike RN)2129 (Medication Removed - Provider: Katlyn Camarillo RN) 1650 (Medication Applied - Provider: Jewels Reeves RN) 0518 (Medication Removed - Provider: Gurdeep Williamson LPN) pantoprazole DR (PROTONIX) extended release tablet 40 mg 40 mg, oral, 2 times daily, First dose on Wed12/15/23 at 2100, Do not crush, chew, cut, dissolve, open or otherwise manipulate tablet/capsule., Indications: GI Bleed 0849 (Given - Provider: Lizette Mike RN)2129 (Given - Provider: Katlyn Camarillo RN) 833 (Given - Provider: Jewels Reeves RN)2045 (Given - Provider: Gurdeep Williamson LPN) 0832 (Given - Provider: Nelli Gamez RN) rosuvastatin (CRESTOR) tablet 40 mg 40 mg, oral, Daily, First dose (after last modification) on Jo 12/16/23 at 0900, Indications: Secondary Stroke Prevention 0849 (Given - Provider: Lizette Mike RN) 0834 (Given - Provider: Jewels Reeves RN) 0833 (Given - Provider: Nelli Gamez RN) tamsulosin (FLOMAX) extended release capsule 0.4 mg 0.4 mg, oral, Nightly, First dose (after last modification) on Wed12/15/23 at 2100, Do not crush, chew, cut, dissolve, open or otherwise manipulate tablet/capsule. 2129 (Given - Provider: Katlyn Camarillo RN) 2045 (Given - Provider: Gurdeep Williamson LPN) PRN Medication Order 01/05/2024 01/06/2024 01/07/2024 acetaminophen (TYLENOL) tablet 650 mg 650 mg, oral, Every 6 hours PRN, 1st line for pain, fever, fever greater than 38.3 C, Starting on Wed12/15/23 at 1528, Indications: Fever, Pain 0849 (Given - Provider: Lizette Mike RN) albuterol HFA (PROVENTIL HFA,VENTOLIN HFA,PROAIR HFA) 90 mcg/actuation inhaler 2 puff 2 puff, inhalation, Every 4 hours PRN (respiratory technician), wheezing, shortness of breath, Starting on Wed12/15/23 at 1527 calcium carbonate (TUMS) chewable tablet 1,000 mg 1,000 mg (400 mg of elemental calcium), oral, 3 times daily PRN, indigestion, Starting on Wed12/15/23 at 1528 ofloxacin (OCUFLOX) 0.3 % ophthalmic solution 1 drop 1 drop, each eye, Daily PRN, Dry eyes, Starting on Wed12/15/23 at 1527 ondansetron (ZOFRAN) tablet 4 mg 4 mg, oral, 3 times daily PRN, nausea, vomiting, Starting on Wed12/15/23 at 1528 ramelteon (ROZEREM) tablet 8 mg 8 mg, oral, Nightly PRN, sleep, Starting on Wed12/15/23 at 1528, Indications: Sleep-Onset Insomnia 2129 (Given - Provider: Katlyn Camarillo RN) 2045 (Given - Provider: Gurdeep Williamson LPN) senna-docusate (PERICOLACE) 8.6-50 mg per tablet 1 tablet 1 tablet, oral, 2 times daily PRN, constipation, Starting on Wed12/15/23 at 1528, Indications: constipation simethicone (MYLICON) chewable tablet 80 mg 80 mg, oral, 3 times daily PRN, flatulence, Starting on Wed12/15/23 at 1528 tiZANidine (ZANAFLEX) tablet 2 mg 2 mg, oral, 3 times daily PRN, muscle spasms, Starting on Wed12/15/23 at 1527, Administer on an empty stomach traMADoL (ULTRAM) tablet 50 mg 50 mg, oral, Every 6 hours PRN, 2nd line for pain, Starting on Wed12/24/23 at 1122 1752 (Given - Provider: Yady Sandhu RN) documented in this encounter Orders Medications Ordered That Te ht Not Have Been Administered Count Last Ordered Date First Ordered Date oxyCODONE (ROXICODONE) tablet 5 mg 1 2023 albuterol HFA (PROVENTIL HFA ,VENTOLIN HFA,PROAIR HFA) 90 mcg/actuation inhaler 2 puff 1 12/15/2023 calcium carbonate (TUMS) clark wable tablet 1,000 mg 1 12/15/2023 ofloxacin (OCUFLOX) 0.3 % op hthalmic solution 1 drop 1 12/15/2023 ondansetron (ZOFRAN) tablet 4 mg 1 12/15/19 oxyCODONE-acetaminophen (PER COCET) 5-325 mg per tablet 1 tablet 1 12/15/2023 simethicone (MYLICON) chewab le tablet 80 mg 1 12/15/2023 General Supply Count Last Ordered Date First Or dered Date WHEELCHAIR--MANUAL 1 01/06/2024 Nursing Count Last Ordered Date First Orde red Date APPLY DRESSING 1 12/15/2023 WEIGH PATIENT 1 12/15/2023 Consult Count Last Ordered Date First Orde red Date IP CONSULT TO ORTHOPEDIC SURGERY 1 12/29/19 IP CONSULT TO NUTRITION SERVICES 1 12/15/19 IP CONSULT TO SOCIAL WORK 1 12/15/2023 Admission Count Last Ordered Date First Orde red Date ADMIT TO INPATIENT REHAB 1 12/15/2023 Discharge Count Last Ordered Date First Orde red Date DISCHARGE PATIENT 1 01/06/2024 CORE MEASURES Count Last Ordered Date First Ord ered Date REASON FOR NO VTE PROPHYLAXIS AT ADMISSION 1 12/15/2023 documented in this encounter Care Teams Casting Technician Relationship Specialty Start Date End Date Wolfgang Serrano MD PCP - General Family Medicine 05/05/23 08/02/24 Unknown, Notinfile 03/12/22 [place] [id number] [facility] [address] [place] [address] 03/12/22 Chuy Enriquez MD [address] [facility] [address] [place] [address] Consulting Physician Pulmonary Disease 10/13/23 Luis Felipe Cedillo MD [address] [facility] [address], [place] [address] Consulting Physician Gastroenterology 10/13/23 Marlene Thornton MD [address] [facility] [address], [place] [address] Surgeon Vascular Surgery 11/10/23 documented as of this encounter
--- OUTSIDE RECORDS SUMMARY | 2024-10-11 01:56 | XMS_ITS | Encounter Summary ---
Author Organization [facility] Healthcare Address [address] [place] [address] Care Team Providers Care Logistics Officer Name Role Phone Wolfgang Serrano MD Primary Care Provider Unknown, Notinfile Unavailable Unavailable Santino Funk MD Unavailable Chuy Enriquez MD Unavailable Luis Felipe Cedillo MD Unavailable Marlene Thornton MD Unavailable [phone] Encounter Details Date Type Department Care Team (Late st Contact Info) Description 01/06/2024 Telephone [facility] [address] [address] [address] [place] [address] Nigel Quintanilla RN Social History Tobacco Use Types Packs/Day Years Used Date Smoking Tobacco: Former Cigarettes 1 966 - 1966 Smokeless Tobacco: Never Alcohol Use Standard Drinks/Week Comments Yes 1 (1 standard drink = 0.6 oz pur e alcohol) [facility] Utilities Answer Date Recorded In the past 12 months has Secret Sales electric, gas, oil, or water company threatened [...] Recorded Patient Health Questionnaire-2 Score 0 01/06/2024 [facility] - Occupational [...] on file 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 Serrano will follow for referral received from [facility], await return call. = Received return call at 1025am from pcp office and per Dr. Maggie Ontiveros will follow for [facility] services documented in this encounter Plan of Treatment Upcoming Encounters Date Type Department Care Team (Latest Contact Info) Description 10/23/2024 10:00 AM [facility] Hospital Encounter [facility] Operating Room [address] [place] [phone] Grey Dykes MD [address] [place] [phone] 10/23/2024 10:00 AM PHOTOSTAT OPERATOR - 10/23/2024 1:00 PM PHOTOSTAT OPERATOR Surgery [facility] Operating Room [address] [place] [id number] [place] [id number] [facility] [address] [place] [address] ARTHROPLASTY TOTAL KNEE LEFT Scheduled Procedures Name Priority Associated Diagnoses Date/Ti me ARTHROPLASTY TOTAL KNEE left knee osteoarthritis 10/23/2024 10:00 AM PHOTOSTAT OPERATOR ESOPHAGOGASTRODUODENOSCOPY Dysphagia, unspecified type documented as of this encounter Visit Diagnoses Not on filedocumented in this encounter Care Teams Logistics Officer Relationship Specialty Start Date End Date Wolfgang Serrano MD PCP - General Family Medicine 05/05/23 08/02/24 Unknown, Notinfile 03/12/22 [place] [id number] [facility] [address] [place] [address] 03/12/22 Chuy Enriquez MD [address] [place] [address] Consulting Physician Pulmonary Disease 10/13/23 Luis Felipe Cedillo MD [address] [place] [address] Consulting Physician Gastroenterology 10/13/23 Marlene Thornton MD [address] [place] [address] Surgeon Vascular Surgery 11/10/23 documented as of this encounter
--- OUTSIDE RECORDS SUMMARY | 2024-10-11 01:57 | XMS_ITS | Encounter Summary ---
Author Organization [facility] Healthcare Address [address] [place] [address] Care Team Providers Care Compressor Assembler Name Role Phone Wolfgang Serrano MD Primary Care Provider [phone] Unknown, Notinfile Unavailable Unavailable Santino Funk MD Unavailable [phone] Chuy Enriquez MD Unavailable [phone] Luis Felipe Cedillo MD Unavailable [phone] Reason for Referral * Procedure (Routine) - Authorized Specialty Diagnoses / Procedures Referred By Contac t Referred To Contact Diagnoses Biceps tendinitis of left upper extremity Tear of left glenoid labrum, initial encounter Procedures Large Joint (Hip, Knee, Shoulder) Injection: [place] [address] [place] [address] Phone: tel: fax: [facility] Referral ID Status Reason Start Date Expiration Date V isits Requested Visits Authorized [id number] Authorized 11/03/2023 12/02/2024 1 1 MACHINE TENDER * Procedure (Routine) - Authorized Specialty Diagnoses / Procedures Referred By Contac t Referred To Contact Diagnoses Primary osteoarthritis of both knees Procedures Large Joint (Hip, Knee, Shoulder) [place]: [place] [address] [place] [address] Phone: tel: fax: [facility] Referral ID Status Reason Start Date Expiration Date V isits Requested Visits Authorized [id number] Authorized 11/03/2023 12/02/2024 1 1 MACHINE TENDER * Diagnostic Imaging (Routine) - Closed Specialty Diagnoses / Procedures Referred By Contac t Referred To Contact Diagnoses Primary osteoarthritis of both knees Procedures XR Knee Right 3 View Carol Ace[place] [id number] [place] [address] Phone: tel: fax: [facility] Referral ID Status Reason Start Date Expiration Date Visits Re quested Visits Authorized [id number] Closed 11/03/2023 12/02/2024 1 1 MACHINE TENDER Reason for Visit * Reason Comments Follow-up Follow-up Follow-up Encounter Details Date Type Department Care Team (Latest Contact Info) Description 11/03/2023 10:15 AM PIN MACHINE TENDER Office Visit [facility] Orthopedics and Sports Medicine at [address] [address] Carol Aceves PA [address] [place] [address] Primary osteoarthritis of both knees (Primary Dx); Biceps tendinitis of left upper extremity; Tear of left glenoid labrum, initial encounter Social History Tobacco Use Types Packs/Day Years Used Date Smoking Tobacco: Former Cigarettes 1966 Smokeless Tobacco: Never Alcohol Use Standard Drinks/Week Comments Yes 1 (1 standard drink = 0.6 oz pur e alcohol) Social Connection and Isolation Panel [NHANES] A nswer Date Recorded In a typical week, how many times do you talk on the phone with family, friends, or neighbors? Three times a week 11/25/2021 How often do you get togethe r with friends or relatives? Three times a week 11/25/2021 Attends [employer]ism Services Not on file 11/25 Active Member of Clubs or Organizations Not on f ile 11/25/2021 Attends Club or Organization Meetings Not on tomas e 11/25/2021 Are you , , di vorced, , never , or living with a partner? 11/25/2021 AUDIT-C Answer Date Recorded Q1: How often do you have a drink containing alc ohol? Monthly or less 06/29/2022 Q2: How many drinks containi ng alcohol do you have on a typical day when you are drinking? 3 or 4 06/29/2022 Q3: How often do you have si x or more drinks on one occasion? Never 06/29/2022 PHQ-2 Answer Date Recorded PHQ-2 Score 0 12/12/2018 Hunger Vital Sign Answer Date Recorded Within the past 12 months, y ou worried that your food would run out before you got the money to buy more. Never true 11/25/19 22 Within the past 12 months, t he food you bought just didn't last and you didn't have money to get more. Never true 11/25/2021 PRAPARE - Transportation Answer Date Re corded In the past 12 months, has l ack of transportation kept you from medical appointments or from getting medications? No 11/11 In the past 12 months, has l ack of transportation kept you from meetings, work, or from getting things needed for daily living? No 11/25/2021 Housing Stability Vital Sign Answer Keny e Recorded In the last 12 months, was t here a time when you were not able to pay the mortgage or rent on time? No 11/25/2021 Number of Places Lived in the Last Year Not on f ile 11/25/2021 In the last 12 months, was t here a time when you did not have a steady place to sleep or slept in a snf (including now)? No 11/25/2021 Personal Safety Answer Date Recorded Getting School Help Needed Denies 10/10 Sex and Gender Information Value Date Recorded Sex Assigned at Not on file Legal Sex Male 3:25 PM PIN MACHINE TENDER Gender Identity Not on file Sexual Orientation Not on file documented as of this encounter Last Filed Vital Signs Vital Sign Reading Time Taken Comments Blood Pressure - - Pulse - - Temperature - - Respiratory Rate - - Oxygen Saturation - - Inhaled Oxygen Concentration - - Weight 99.8 kg (220 lb) 11/03/2023 10:02 AM PIN MACHINE TENDER Height 180.3 cm (5' 11 ) 11/03/2023 10:02 AM PIN MACHINE TENDER Body Mass Index 30.68 11/03/2023 10:02 AM PIN MACHINE TENDER documented in this encounter Progress Notes * Carol Aceves PA - 11/03/2023 10:15 AM CSTAssociated Order(s): Large Joint (Hip, Knee, Shoulder) Injection: L knee; Large Joint (Hip, Knee, Sh oulder) Injection: L subacromial bursa Post-Procedure Diagnose(s): Primary osteoarthritis of both knees; Tear of left glenoid labrum, initial encounter; Biceps tendinitis of left upper extremity Images from the original note were not included. FOLLOW UP VISIT Subjective CHIEF COMPLAINT He had concerns including Follow-up of the Left Shoulder, Follow-up of the Left Knee, and Follow-upof the Right Knee. HISTORY OF PRESENT ILLNESS This is a 78-year-old male who is here today to be re-evaluated for his left shoulder and left kneefor possible cortisone injections but also his right that had a total on just over a year ago and has not had x-rays recently. He is still having tenderness to both knees at times. This is especiallytrue when he 1st gets up from seated or if he is taking his 1st few steps when he is walking. He states that stairs are still little bit tender for as well. He thinks that he needs another injection for his left knee as well as his left shoulder. He states that his left knee is bothering him as much more than the right currently. He did have some good relief from his last injection which was almost a year ago. He also states that his left shoulder has been bothering him again. He would like to go ahead and have an injection in his shoulder as well. He notes no other changes to his knee or hisshoulder other than they are bothering him again. He notes no other changes to his right knee. I asked him if he would returned to doing any of his exercises when his right knee as being painful. He stated that he had not. Pain Assessment Pain Assessment: 0-10 Pain Score: 5 - Moderate pain Pain Location: Knee Pain Descriptors: Aching Pain Frequency: Intermittent Aggravating Factors: Bending, Standing, Walking, Other (Comment) (prolonged sitting) Multiple Pain Sites: Two Pain 2 Pain Score 2: 7 Pain Location 2: Shoulder Pain Descriptors 2: Sharp Pain Frequency 2: Intermittent Aggravating Factors 2: Other (Comment), Stretching (Lifting) MEDICATIONS He has a current medication list which includes the following prescription(s): albuterol hfa, capsaicin, cholecalciferol, donepezil, furosemide, gabapentin, levothyroxine, lidocaine, melatonin, mirtazapine, omeprazole, oxybutynin xl, sildenafil (pulm.hypertension), tamsulosin, tizanidine, and turmeric root extract. REVIEW OF SYSTEMS Review of Systems Constitutional: Negative for chills and fever. HENT: Negative for hearing loss. Eyes: Negative for visual disturbance. Respiratory: Negative for cough and shortness of breath. Cardiovascular: Negative for chest pain and palpitations. Gastrointestinal: Negative for constipation, diarrhea, nausea and vomiting. Endocrine: Negative for cold intolerance, heat intolerance, polydipsia and polyuria. Genitourinary: Negative for difficulty urinating, enuresis and urgency. Musculoskeletal: See HPI Skin: Negative for rash. Neurological: Negative for seizures and weakness. Hematological: Does not bruise/bleed easily. Psychiatric/Behavioral: Negative for dysphoric mood. The patient is not nervous/anxious. Objective PHYSICAL EXAM Ht 180.3 cm (5' 11 ) Wt 99.8 kg (220 lb) BMI 30.68 kg/m?? Ortho Exam He is alert and oriented x3. He has in no acute distress. He is cooperative with the exam. He is actually doing very well with range of motion of both knees. He can get from full extension with his left knee to approximately 125?? of flexion without difficulty. With his right, can get from almost full extension to approximately 125?? of flexion without difficulty. Range of motion does not appear to be his problem. He does have some tenderness with extension against resistance with his right knee. However, this is particularly painful. When he goes to stand from a seated position, he has tenderness to both knees at that point. His incision from his total knee on the right side as well healed. He has crepitus with range motion to his left knee. He does not appear to have any significant tenderness to palpation to either knee. Sensation appears to be intact to light touch with the exception just lateral to the incision on the right knee has some decreased sensation. He does not appear tohave any significant difficulty with ankle range of motion at this time. With his left shoulder, heis able to go through almost full range motion. However, he has tenderness once he gets above shoulder level in either forward flexion or abduction. He does not appear to have any significant difficulty with elbow range of motion. He appears neurovascularly intact. REVIEW OF X-RAYS/STUDIES/LABS XR Knee Right 3 View My interpretation of his x-rays today: Three views of his right knee including weight-bearing AP, lateral, and sunrise views show that the instrumentation from his total knee remains in good position. There has been no migration or failure of any of the components. His knee appears congruent and well aligned. Assessment/Plan Abrahan was seen today for follow-up, follow-up and follow-up. Diagnoses and all orders for this visit: Primary osteoarthritis of both knees - XR Knee Right 3 View Biceps tendinitis of left upper extremity Tear of left glenoid labrum, initial encounter Large Joint (Hip, Knee, Shoulder) Injection: L knee Performed by: Carol Aceves PA Authorized by: Carol Aceves PA Large Joint Injection/Aspiration: Consent Given by: Patient Site marked: the procedure site was marked Verbal consent obtained: Yes Supporting Documentation: Indications: Pain and joint swelling Procedure Details: Location: Knee Site: L knee Needle Size: 22 G Approach: Anterolateral Medications: 4 mL lidocaine 10 mg/mL (1 %); 80 mg methylPREDNISolone acetate 40 mg/mL Patient tolerance: Patient tolerated the procedure well with no immediate complications Large Joint (Hip, Knee, Shoulder) Injection: L subacromial bursa Performed by: Carol Aceves PA Authorized by: Carol Aceves PA Large Joint Injection/Aspiration: Consent Given by: Patient Site marked: the procedure site was marked Verbal consent obtained: Yes Supporting Documentation: Indications: Pain Procedure Details: Location: Shoulder Site: L subacromial bursa Needle Size: 22 G Approach: Posterior Medications: 80 mg methylPREDNISolone acetate 40 mg/mL; 4 mL lidocaine 10 mg/mL (1 %) Patient tolerance: Patient tolerated the procedure well with no immediate complications PLAN This is 78-year-old male who is here today to be re-evaluated for his left shoulder and his left knee as well as his right knee. His right knee just under 2 years out from right total knee arthroplasty. He has not had any recent x-rays so we re-x-ray knee today to make sure everything was okay withhis total knee components. This appears to be doing well. I did suggest that he return to doing hisexercises on the days especially when he is having tenderness to see if he get this stretched out. We then discussed the injections for his shoulder and his knee. He verbalized understanding of the risks and benefits of cortisone injection. We then proceeded with both injections as above. He tolerated them well and without complication. He knows he can have these every 3-4 months if he needs themthat often. I did go over his x-rays with his left knee again so that he could understand why he was having some flare-ups of his degenerative changes on occasion and why he may need cortisone more often than he did. However, this has been almost a year since his last injection so I think he is doing very well with this. We will see how does with the injections we he received today. We discussed his shoulder briefly as well. He will continue to work on stretching exercises gently. If this continues to be a problem, we may send him to physical therapy. We will see how he does with the injection 1st. He knows to call with any further questions or concerns and will follow up as needed. LORI Herman MACHINE TENDER documented in this encounter Plan of Treatment Upcoming Encounters Date Type Department Care Team (Latest Contact Info) Description 10/23/2024 10:00 AM PIN MACHINE TENDER Hospital Encounter [facility] Operating Room [address] [place] [address] [place] [address] [address] 10/23/2024 10:00 AM PIN MACHINE TENDER - 10/23/2024 1:00 PM PIN MACHINE TENDER Surgery [facility] Operating Room [address] [place] [address] [place] [address] [address] [facility] [address] [place] [address] ARTHROPLASTY TOTAL KNEE LEFT Scheduled Procedures Name Priority Associated Diagnoses Date/Ti me ARTHROPLASTY TOTAL KNEE left knee osteoarthritis 10/23/2024 10:00 AM PIN MACHINE TENDER ESOPHAGOGASTRODUODENOSCOPY Dysphagia, unspecified type documented as of this encounter Procedures Procedure Name Priority Date/Time Associated Diagnosis Comments XR KNEE RIGHT 3 VIEWS Schedule Routine, Read Routine (OP Routine) 11/03/2023 11:23 AM PIN MACHINE TENDER Primary osteoarthritis of both knees CA ARTHROCENTESIS ASPIR&/INJ MAJOR JT/BURSA W/O US Routine 11/03/2023 10:15 AM PIN MACHINE TENDER Biceps tendinitis of left upper extremity Tear of left glenoid labrum, initial encounter CA ARTHROCENTESIS ASPIR&/INJ MAJOR JT/BURSA W/O US Routine 11/03/2023 10:15 AM PIN MACHINE TENDER Primary osteoarthritis of both knees documented in this encounter Results * XR Knee Right 3 View (11/03/2023 11:23 AM PIN MACHINE TENDER) Anatomical Region Laterality Modality Lower Extremities, Knee Right Computed Radiography Narrative 11/03/2023 11:23 AM PIN MACHINE TENDER My interpretation of his x-rays today: ??Three views of his right knee including weight-bearing AP, lateral, and sunrise views show that the instrumentation from his total knee remains in good position. ??There has been no migration or failure of any of the components. ??His knee appears congruent and well aligned. us Carol SANDOVAL IMG XR PROCEDURES Final Resu lt * CA ARTHROCENTESIS ASPIR&/INJ MAJOR JT/BURSA W/O US (11/03/2023 10:15 AM PIN MACHINE TENDER) Narrative Carol Aceves PA - 11/03/2023 10:15 AM PIN MACHINE TENDER Carol Aceves PA ? 11/03/2023 11:32 AM Large Joint (Hip, Knee, Shoulder) Injection: L subacromial bursa Performed by: Carol Aceves PA Authorized by: Carol Aceves PA ?? Large Joint Injection/Aspiration: ??Consent Given by: ??Patient ??Site marked: the procedure site was marked ?Verbal consent obtained: Yes ?? Supporting Documentation: ??Indications: ??Pain Procedure Details: ??Location: ??Shoulder ??Site: ??L subacromial bursa ??Needle Size: ??22 G ??Approach: ??Posterior ??Medications: ??80 mg methylPREDNISolone acetate 40 mg/mL; 4 mL lidocaine 10 mg/mL (1 %) ??Patient tolerance: ??Patient tolerated the procedure well with no immediate complications us Carol SANDOVAL IN CLINIC/BEDSIDE ORDERABLES Final Result * CA ARTHROCENTESIS ASPIR&/INJ MAJOR JT/BURSA W/O US (11/03/2023 10:15 AM PIN MACHINE TENDER) Narrative Carol Aceves PA - 11/03/2023 10:15 AM PIN MACHINE TENDER Carol Aceves PA ? 11/03/2023 11:32 AM Large Joint (Hip, Knee, Shoulder) Injection: L knee Performed by: Carol Aceves PA Authorized by: Carol Aceves PA ?? Large Joint Injection/Aspiration: ??Consent Given by: ??Patient ??Site marked: the procedure site was marked ?Verbal consent obtained: Yes ?? Supporting Documentation: ??Indications: ??Pain and joint swelling Procedure Details: ??Location: ??Knee ??Site: ??L knee ??Needle Size: ??22 G ??Approach: ??Anterolateral ??Medications: ??4 mL lidocaine 10 mg/mL (1 %); 80 mg methylPREDNISolone acetate 40 mg/mL ??Patient tolerance: ??Patient tolerated the procedure well with no immediate complications us Carol SANDOVAL IN CLINIC/BEDSIDE ORDERABLES Final Result documented in this encounter Visit Diagnoses Diagnosis Primary osteoarthritis of both knees- Primary Biceps tendinitis of left upper extremity Tear of left glenoid labrum, initial encounter documented in this encounter Administered Medications Inactive Administered Medications - up to 3 most recent administrations Medication Order MAR Action Action Date Dose Rate Site lidocaine (XYLOCAINE) 10 mg/mL (1 %) injection 4 mL 4 mL, One-Time Injection, Starting on Wed11/03/23 at 1015, For 1 dose, Indications: Administration of Local AnesthesiaIndications:Adminis tration of Local Anesthesia Given 11/03/2023 10:15 AM PIN MACHINE TENDER 4 mL Left Knee lidocaine (XYLOCAINE) 10 mg/mL (1 %) injection 4 mL 4 mL, One-Time Injection, Starting on Wed11/03/23 at 1015, For 1 dose, Indications: Administration of Local AnesthesiaIndications:Adminis tration of Local Anesthesia Given 11/03/2023 10:15 AM PIN MACHINE TENDER 4 mL Left Shoulder methylPREDNISolone acetate (DEPO-medrol) injection 80 mg 80 mg, intra-articular, One-Time Injection, Starting on Wed11/03/23 at 1015, For 1 doseIndications:Primary osteoarthritis of both knees Given 11/03/2023 10:15 AM PIN MACHINE TENDER 80 mg Left Knee methylPREDNISolone acetate (DEPO-medrol) injection 80 mg 80 mg, intra-articular, One-Time Injection, Starting on Wed11/03/23 at 1015, For 1 doseIndications:Biceps tendinitis of left upper extremity,Tear of left glenoid labrum, initial encounter Given 11/03/2023 10:15 AM PIN MACHINE TENDER 80 mg Left Shoulder documented in this encounter Care Teams Compressor Assembler Relationship Specialty Start Date End Date Wolfgang Serrano MD PCP - General Family Medicine 05/05/23 08/02/24 Unknown, Notinfile 03/12/22 [place] [address] [place] [address] 03/12/22 Chuy Enriquez MD [address] [place] [address] Consulting Physician Pulmonary Disease 10/13/23 Luis Felipe Cedillo MD [address] [address] Consulting Physician Gastroenterology 10/13/23 documented as of this encounter
--- OUTSIDE RECORDS SUMMARY | 2024-10-11 01:57 | XMS_ITS | Encounter Summary ---
Author Organization [facility] Healthcare Address [address] [place] [address] Care Team Providers Care Counting Machine Operator Name Role Phone Wolfgang Serrano MD Primary Care Provider [phone] Unknown, Notinfile Unavailable Unavailable Santino Funk MD Unavailable [phone] Chuy Enriquez MD Unavailable Luis Felipe Cedillo MD Unavailable [phone] Reason for Referral * MRI/CAT/PET Scan (Routine) - Closed Specialty Diagnoses / Procedures Referred By Contboone t Referred To Contact Radiology Diagnoses Lung nodule Procedures CT chest without contrast Chuy Enriquez MD [address] [facility] [address] [place] [address] Phone: tel: fax: [facility] [address] [place] [address] Referral ID Status Reason Start Date Expiration Date Visits Re quested Visits Authorized [id number] Closed 01/18/2024 02/17/2024 1 1 CTOR OF ENTERPRISE APPLICATIONS Encounter Details Date Type Department Care Team (Late st Contact Info) Description 10/13/2023 Orders Only [facility] [address] [facility] [address] [place] [address] Chuy Enriquez MD [address] [facility] [address] [place] [address] Lung nodule Social History Tobacco Use Types [...] relatives? Three times a week 11/25/2021 Attends [employer] Services Not on file 11/25 Active Member [...] in a skilled nursing (including now)? No 11/25/2021 Personal Safety Answer Date Recorded Getting School Help Needed Denies 10/10 Sex and Gender Information Value Date Recorded Sex Assigned at Not on file Legal Sex Male 3:25 PM DIRECTOR OF ENTERPRISE APPLICATIONS Gender Identity Not on file Sexual Orientation Not on file documented as of this encounter Plan of Treatment Upcoming Encounters Date Type Department Care Team (Latest Contact Info) Description 10/23/2024 10:00 AM DIRECTOR OF ENTERPRISE APPLICATIONS Hospital Encounter [facility] Operating Room [address] [place] [address] [place] [address] [address] 10/23/2024 10:00 AM DIRECTOR OF ENTERPRISE APPLICATIONS - 10/23/2024 1:00 PM DIRECTOR OF ENTERPRISE APPLICATIONS Surgery [facility] Operating Room [address] [place] [address] [place] [address] [address] ARTHROPLASTY TOTAL KNEE LEFT Scheduled Procedures Name Priority Associated Diagnoses Date/Ti me ARTHROPLASTY TOTAL KNEE left knee osteoarthritis 10/23/2024 10:00 AM DIRECTOR OF ENTERPRISE APPLICATIONS ESOPHAGOGASTRODUODENOSCOPY Dysphagia, unspecified type documented as of this encounter Results * CT chest without [...] Other diseases of lung, not elsewhere classified Lung nodule Other diseases of lung, not elsewhere classified documented in this encounter Care Teams Counting Machine Operator Relationship Specialty Start Date End Date Wolfgang Serrano MD PCP - General Family Medicine 05/05/23 08/02/24 Unknown, Notinfile 03/12/22 [place] [address] [place] [address] 03/12/22 Chuy Enriquez MD [address] [place] [address] Consulting Physician Pulmonary Disease 10/13/23 Luis Felipe Cedillo MD [address] [place] [address] Consulting Physician Gastroenterology 10/13/23 documented as of this encounter
--- OUTSIDE RECORDS SUMMARY | 2024-10-11 01:57 | XMS_ITS | Encounter Summary ---
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 Biceps tendinitis of left upper extremity Procedures MRI [place]er [place] [address] [place] [address] Phone: tel: fax: [facility] Referral ID Status Reason Start Date Expiration Date Visits Re quested Visits Authorized [id number] Closed 05/04/2023 06/02/2024 1 1 Reason for Visit * Diagnostic Imaging (Routine) - Closed Specialty Diagnoses / Procedures Referred By Contboone mccallum Referred To Contact Radiology Diagnoses 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 Biceps tendinitis of left upper extremity Procedures MRI [place] [address] [address] [place] [id number] Phone: tel: fax: [facility] Referral ID Status Reason Start Date Expiration Date Visits Re quested Visits Authorized [id number] Closed 05/04/2023 06/02/2024 1 1 Encounter Details Date Type Department Care Team (Latest Contact Info) Description 05/12/2023 12:09 PM CDT - 05/12/2023 11:59 PM CDT Hospital Encounter [facility] Imaging and Radiology [address] [place] [phone] 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 Three times a week 11/25/2021 Attends [employer] Not on file 11/25 Active Member [...] slept in a fdc (including now)? No 11/25/2021 Sex and Gender Information Value Date Recorded Sex Assigned at Not on file Legal Sex Male 3:25 PM [employer]ODE [employer] Gender Identity Not on file Sexual Orientation Not on file documented as of this encounter Medications at Time of Discharge albuterol HFA (PROVENTIL HFA,VENTOLIN HFA,PROAIR HFA) 90 mcg/actuation inhaler 2 puffs every 4 (four) hours as needed 02/03/2023 capsaicin 0.1 % creamIndications: Neuropathic Pain Apply to your feet three to four times a day. 60 g 5 12/03/2022 cholecalciferol (VITAMIN D-3) 2000 unit capsule Take 1 capsule (2,000 Units total) by mouth daily 30 capsule 3 12/31/2019 levothyroxine (SYNTHROID) 150 mcg tablet Take 1 tablet (150 mcg total) by mouth daily 09/19/2021 oxybutynin XL (DITROPAN-XL) 10 mg 24 hr tabletIndications :Urinary Urge Incontinence Take 1 tablet (10 mg total) by mouth nightly 11/07/2021 tamsulosin (FLOMAX) 0.4 mg extended release capsule Take 1 capsule (0.4 mg total) by mouth nightly 01/29/2020 turmeric root extract 500 mg capsule Take 1,000 mg by mouth nightly acetaminophen (TYLENOL) 500 mg tablet Take 1 tablet (500 mg total) by mouth every 6 (six) hours as needed for pain 30 tablet 10/03/2022 01/01/[address] (VOLTAREN) 50 mg EC tablet Take 1 tablet by mouth twice daily as needed for pain 60 tablet 04/22/2023 3 donepeziL (ARICEPT) 10 mg tabletIndications :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) Take 1 tablet (10 mg total) by mouth nightly 30 tablet 5 09/30/2022 3 gabapentin (NEURONTIN) 100 mg capsuleIndication s:Neuropathic Pain Take 2 capsules (200 mg total) by mouth 3 (three) times a day 180 capsule 5 12/03/2022 3 lidocaine (ASPERCREME) 4 % adhesive patch,medicated Place 1 patch on the skin daily for 12 days 12 patch 10/03/2022 4 magnesium oxide (MAG-OX) 250 mg (150.8 mg elemental) tabletIndications :hypomagnesemia Take 1 tablet (250 mg total) by mouth nightly 4 mirtazapine (REMERON) 7.5 mg tablet TAKE 1 TABLET BY MOUTH ONCE DAILY AT NIGHT 12/19/2021 4 omeprazole (PriLOSEC) 20 mg capsule take 1 capsule by oral route every day before a meal 0 0 10/21/2016 4 polyethylene glycol (MIRALAX) 17 gram packetIndications :constipation Take 1 packet (17 g total) by mouth daily as needed for constipation 4 senna-docusate (PERICOLACE) 8.6-50 mg Take 1 tablet by mouth nightly 4 sildenafiL, pulm.hypertension , (REVATIO) 20 mg tablet Take 1 tablet (20 mg total) by mouth daily 04/17/2022 4 tiZANidine (ZANAFLEX) 2 mg tablet Take 2 tablets (4 mg total) by mouth nightly 1 to 2 tablets at bedtime 60 tablet 5 03/11/2022 3 traMADoL (ULTRAM) 50 mg tablet TAKE 1 TABLET BY MOUTH EVERY 6 HOURS NEEDED FOR PAIN 20 tablet 01/04/2023 4 traZODone (DESYREL) 50 mg tablet Take by mouth nightly 1/2 to 1 tablet 08/15/2021 4 UNABLE TO FIND Take 1 each by mouth nightly Med Name: muscle cramp pain reliever Patient takes 3 different OTC homeopathic muscle cramp medications 4 documented as of this encounter Discharge Disposition Disposition Code Departure Means Destination Discharge to home or self care documented in this encounter Plan of Treatment Upcoming Encounters Date Type Department Care Team (Latest Contact Info) Description 10/23/2024 10:00 AM C[employer]ODE BU[employer]DER Hospital Encounter [facility] Operating Room [id number] [place] [id number] [place] [address] [address] 10/23/2024 10:00 AM CATHODE BUILDER - 10/23/2024 1:00 PM [employer]ODE BU[employer]DER Surgery 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 ??Low-grade, subcentimeter partial-thickness articular surface tears of the left anterior supraspinatus and junctional zone fibers with background supraspinatus tendinopathy. 2. ??Degenerative tear of the anterior glenoid labrum. ??Additional small posterior inferior glenoid labral tear. 3. ??Mild subacromial/subdeltoid bursitis. 4. ??Small volume glenohumeral joint effusion. Dictated by: Sachin Patel MD The radiology attending physician has personally reviewed this study, and had reviewed and/or edited this written report and agrees with it. Electronically signed by: Oneal Baxter MD Narrative 05/12/2023 2:59 PM CDT EXAM: 1. ??MRI SHOULDER LEFT WO CONTRAST HISTORY:Left shoulder pain, rotator cuff disorder suspected. TECHNIQUE: Multiplanar and multisequence MRI of the left shoulder without intravenous contrast. COMPARISON: Left shoulder radiographs, 03/23/2023. FINDINGS: Type 2 acromion. Coracoacromial ligament is normal. Mild distal clavicle subchondral cystic changes. ??Mild subacromial/subdeltoid bursitis. There is a low-grade 4 x 4 mm partial-thickness articular surface tear of the anterior supraspinatus and a low-grade 5 x 6 mm partial-thickness articular surface tear of the distal junctional zone fibers. ??Subscapularis tendinopathy is seen without tear. ??Teres minor is intact. ??Muscle bulk is normal. Mild intra-articular long head biceps tendinopathy. ??The anterior glenoid labrum is irregular a degenerative tear. ??There is a small additional posterior inferior labral tear is present. ??Mild glenohumeral chondrosis. No acute fracture identified. ??Bone marrow signal is normal. ??Small volume glenohumeral joint effusion. Procedure Note Rosanna Baxter MD - 05/12/2023 EXAM: 1. MRI SHOULDER LEFT WO CONTRAST HISTORY:Left shoulder pain, rotator cuff disorder suspected. TECHNIQUE: Multiplanar and multisequence MRI of the left shoulder without intravenous contrast. COMPARISON: Left shoulder radiographs, 03/23/2023. FINDINGS: Type 2 acromion. Coracoacromial ligament is normal. Mild distal clavicle subchondral cystic changes. Mild subacromial/subdeltoid bursitis. There is a low-grade 4 x 4 mm partial-thickness articular surface tear of the anterior supraspinatus and a low-grade 5 x 6 mm partial-thickness articular surface tear of the distal junctional zone fibers. Subscapularis tendinopathy is seen without tear. Teres minor is intact. Muscle bulk is normal. Mild intra-articular long head biceps tendinopathy. The anterior glenoid labrum is irregular a degenerative tear. There is a small additional posterior inferior labral tear is present. Mild glenohumeral chondrosis. No acute fracture identified. Bone marrow signal is normal. Small volume glenohumeral joint effusion. IMPRESSION: 1. Low-grade, subcentimeter partial-thickness articular surface tears of the left anterior supraspinatus and junctional zone fibers with background supraspinatus tendinopathy. 2. Degenerative tear of the anterior glenoid labrum. Additional small posterior inferior glenoid labral tear. 3. Mild subacromial/subdeltoid bursitis. 4. Small volume glenohumeral joint effusion. Dictated by: Sachin Patel MD The radiology attending physician has personally reviewed this study, and had reviewed and/or edited this written report and agrees with it. 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
--- OUTSIDE RECORDS SUMMARY | 2024-10-11 01:57 | XMS_ITS | Encounter Summary ---
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 Biceps tendinitis of left upper extremity Procedures Large Joint (Hip, Knee, Shoulder) Injection: L glenohumeral George Sepulveda MD [address] [place] [address] Phone: tel: fax: [facility] Referral ID Status Reason Start Date Expiration Date Visits Re quested Visits Authorized [id number] Closed 05/18/2023 06/16/2024 1 1 Reason for Visit * Reason Comments Test Results MRI results Encounter Details Date Type Department Care Team (Latest Contact Info) Description 05/18/2023 9:00 AM CDT Office Visit [facility] Orthopedics & Sports Medicine at [facility] [id number] [place] [id number] [place] [id number] [facility] [address] [place] [address] 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 Three times a week 11/25/2021 Attends Rastafari Services Not on file 11/25 Active Member of Clubs or Organizations Not on f ile 11/25/2021 Attends Club or Organization Meetings Not on toams e 11/25/2021 Are you , , di [...] slept in a longterm (including now)? 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 TIP MAKER Gender Identity Not on file Sexual Orientation Not on file documented as of this encounter Last Filed Vital Signs Vital Sign Reading Time Taken Comments Blood Pressure 141/88 05/18/2023 9:07 AM CDT Pulse 53 05/18/2023 9:07 AM CDT Temperature - - Respiratory Rate - - Oxygen Saturation - - Inhaled Oxygen Concentration - - Weight 104.3 kg (230 lb) 05/18/2023 9:07 AM CDT Height 177.8 cm (5' 10 ) 05/18/2023 9:07 AM CDT Body Mass Index 33 05/18/2023 9:07 AM CDT documented in this encounter Progress Notes * George Sepulveda MD - 05/18/2023 9:00 AM CDTAssociated Order(s): Large Joint (Hip, Knee, Shoulder) Injection: L glenohumeral Post-Procedure Diagnose(s): 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 FOLLOW UP VISIT Subjective CHIEF COMPLAINT He had concerns including Test Results of the Left Shoulder (MRI results). HISTORY OF PRESENT ILLNESS Patient returns today for follow-up evaluation of his left shoulder. He reports persistent pain in the shoulder with occasional waking up at night. He is here to review the results of his MRI. He denies recent injury. He denies numbness or tingling. He denies weakness. He is right-hand dominant. Pain Assessment Pain Assessment: 0-10 Pain Score: 0 - No pain Pain Location: Shoulder Pain Orientation: Left MEDICATIONS He has a current medication list which includes the following prescription(s): acetaminophen, albuterol hfa, capsaicin, cholecalciferol, diclofenac dr, donepezil, gabapentin, levothyroxine, magnesiumoxide, mirtazapine, omeprazole, oxybutynin xl, senna-docusate, sildenafil (pulm.hypertension), tizanidine, tramadol, trazodone, turmeric root extract, UNABLE TO FIND, lidocaine, polyethylene glycol, and tamsulosin. REVIEW OF SYSTEMS Review of Systems Constitutional: [...] dysuria and flank pain. Musculoskeletal: Positive for arthralgias and gait problem. Negative for neck pain. Skin: Negative for color change and rash. Allergic/Immunologic: Negative for immunocompromised state. Neurological: Negative for dizziness, speech difficulty and weakness. Hematological: Negative for adenopathy. Psychiatric/Behavioral: Negative for decreased concentration and hallucinations. Objective PHYSICAL EXAM BP 141/88 (BP Location: Right arm, Patient Position: Sitting) Pulse 53 Ht 177.8 cm (5' 10 ) Wt 104.3 kg (230 lb) BMI 33.00 kg/m?? Right shoulder Inspection Erythema: absent Edema: absent Effusion: absent Swelling: absent Skin temperature: normal Atrophy: absent AC joint deformity: absent Scapular winging: absent Abrasion: absent Surgical scar/wound: absent. Scapulothoracic motion: normal Posture, chin forward: normal Posture, rounded shoulders: normal Palpation Tenderness is absent. Range of motion The patient has normal range of motion of the right shoulder. Active forward flexion: 170 degrees. The patient does not have pain with active forward flexion of the right shoulder. Active flexion: 50 degrees. The patient does not has pain with active extension of the right shoulder. Active internal rotation at 90 degrees 70 degrees. The patient does not have pain with active internal rotation at 90 degrees of the right shoulder. Active external rotation at 90 degrees 80 degrees. The patient does not have pain with active external rotation at 90 degress of the right shoulder. Active abduction: 170 degrees. The patient does not have pain with active abduction of the right shoulder. Passive forward flexion: 170 degrees. Passive abduction: 170 degrees. The patient does not have pain with passvie abduction of the right shoulder. Stability Th patient has normal stability of the right shoulder. Strength The patient has 5/5 strength throughout the right shoulder. Shoulder abduction: 5/5 Internal rotation: 5/5 External rotation 5/5 Supraspinatus: 5/5 Deltoid: 5/5 Neurovascular The patient has normal vascular on the right side of his body. Radial pulse: 1+ He has normal sensation on the right side of his body. Tests Apprehension: negative Belly press: negative Cross arm: negative Impingement signs:negative Lift-off: negative Neer's: negative Speed's: negative Left shoulder Inspection Erythema: absent Edema: absent Effusion: absent Swelling: absent Skin temperature: normal Atrophy: absent AC joint deformity: absent Scapular winging: absent Abrasion: absent Surgical scar/wound is absent. Scapulothoracic motion: normal Posture, chin forward: normal Posture, rounded shoulders: normal Palpation Tenderness is present. The patient has tenderness in the anterior shoulder, lateral shoulder and biceps tendon area(s). Range of motion The patient has reduced range of motion of the left shoulder. The patient has pain with range of motion of the left shoulder. Active forward flexion: 140. The patient has pain with active forward flexion . Active extension: 50. The patient has pain with active extension. Active internal rotation at 90 degrees: 50. The patient has pain with active internal rotation at 90 degrees. Active external rotation at 90 degrees: 50. The patient has pain with active external rotation at 90 degrees. Active abduction: 130. The patient has pain with active abduction. Passive forward flexion: 150. Passive abduction: 150. The patient does not have pain with passive abduction. Stability The patient has normal stability of the left shoulder. Strength The patient has 5/5 strength throughout. Abduction: 5/5 and painful Internal rotation: 5/5 and painful External rotation: 5/5 and painful Supraspinatus: 4/5 and painful Deltoid: 5/5 Neurovascular The patient has normal vascular on the left side of their body. Radial pulse: 1+ The patient has normal sensation on the left side of their body. Tests Apprehension: negative Belly press: negative Cross arm: positive Impingement signs: positive Lift-off: negative Neer's: positive Speed's: positive Left knee Inspection Erythema: absent Cellutlis: absent Swelling: absent Effusion: absent Surgical scar/wound: absent. Alignment: neutral Gait: normal Palpation Tenderness: present. The tenderness is located in the medial joint line. Crepitus: negative Patella grind: negative Range of motion The patient has normal range of motion of the left knee. Active extension: 0 Active flexion: 121-125 Flexion contracture: no. Extensor lag: no. Stability Varus stress at 0 degrees: stable Valgus stress at 0 degrees: stable Varus stress at 30 degrees: stable Valgus stress at 30 degrees: 1+ Joanna: negative Anterior drawer: negative Posterior drawer: negative Strength The patient has 5/5 strength throughout. Neurovascular The patient has normal vascular on the left side of their body. The patient has normal sensation on the left side of their body. Special tests Patellar apprehension: negative Patella J-sign: negative Posterior sag: negative Comments: 1+ LE edema REVIEW OF X-RAYS/STUDIES/LABS MRI of the left shoulder is viewed interpreted this demonstrates degenerative labral tear with tendinitis biceps. There was a small articular surface rotator cuff tear. Assessment/Plan Abrahan was seen today for test results. 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 - Large Joint (Hip, Knee, Shoulder) Injection: L glenohumeral Biceps tendinitis of left upper extremity - Large Joint (Hip, Knee, Shoulder) Injection: L glenohumeral Tear of left glenoid labrum, initial encounter Primary osteoarthritis of both knees Hx of total knee replacement, right Peripheral edema Large Joint (Hip, Knee, Shoulder) Injection: L glenohumeral Performed by: George Sepulveda MD Authorized by: George Sepulveda MD Large Joint Injection/Aspiration: Consent Given by: Patient Verbal consent obtained: Yes Supporting Documentation: Indications: Pain Procedure Details: Location: Shoulder Site: L glenohumeral Needle Size: 22 G Approach: Anterior Medications: 80 mg methylPREDNISolone acetate 40 mg/mL; 4 mL lidocaine 10 mg/mL (1 %) Patient tolerance: Patient tolerated the procedure well with no immediate complications PLAN For the shoulder I discussed treatment options to include non-operative management which would consist of physical therapy with or without cortisone injection. The patient elected to proceed with non-operative management to include physical therapy with injection. The patient will follow up in 6 weeks if there is no improvement and we will further discuss options at that time, otherwise the patient may follow up on an as needed basis. For the left knee we discussed continue with his current exercise and letting him determine when the appropriate time for replacement. Patient has hesitant to walk for exercise due to not wanting to exacerbate his knee pain however I informed him that this is counter intuitive as we want him to walk and lose weight as that will be beneficial for his knee. George Sepulveda MD documented in this encounter Plan of Treatment Upcoming Encounters Date Type Department Care Team (Latest Contact Info) Description 10/23/2024 10:00 AM PHONOGRAPH NEEDLE TIP MAKER Hospital Encounter [facility] Operating Room [address] [place] [address] [place] [address] [address] 10/23/2024 10:00 AM PHONOGRAPH NEEDLE TIP MAKER - 10/23/2024 1:00 PM PHONOGRAPH NEEDLE TIP MAKER Surgery [facility] Operating Room [address] [place] [address] [place] [address] [address] ARTHROPLASTY TOTAL KNEE LEFT Scheduled Procedures Name Priority Associated Diagnoses Date/Ti me ARTHROPLASTY TOTAL KNEE left knee osteoarthritis 10/23/2024 10:00 AM PHONOGRAPH NEEDLE TIP MAKER ESOPHAGOGASTRODUODENOSCOPY Dysphagia, unspecified type documented as of this encounter Procedures Procedure Name Priority Date/Time Associated Diagnosis Comments PA ARTHROCENTESIS ASPIR&/INJ MAJOR JT/BURSA W/O US Routine 05/18/2023 9:00 AM CDT 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 05/18/2023 ??9:31 AM Large Joint (Hip, Knee, Shoulder) Injection: L glenohumeral Performed by: George Sepulveda MD Authorized by: George Sepulveda MD ?? Large Joint Injection/Aspiration: ??Consent Given by: ??Patient ??Verbal consent obtained: Yes ?? 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- Primary Biceps tendinitis of left upper extremity Tear of left glenoid labrum, initial encounter Primary osteoarthritis of both knees Hx of total knee replacement, right Peripheral edema Edema documented in this encounter Administered Medications Inactive Administered Medications - up to 3 most recent administrations Medication Order MAR Action Action Date Dose Rate Site lidocaine (XYLOCAINE) 10 mg/mL (1 %) injection 4 mL 4 mL, One-Time Injection, Starting on Wed05/18/23 at 0928, For 1 dose, Indications: Administration of Local AnesthesiaIndications:Adminis tration of Local Anesthesia Given 05/18/2023 9:28 AM CDT 4 mL Left Shoulder methylPREDNISolone acetate (DEPO-medrol) injection 80 mg 80 mg, intra-articular, One-Time Injection, Starting on Wed05/18/23 at 0928, For 1 doseIndications: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
--- OUTSIDE RECORDS SUMMARY | 2024-10-11 01:57 | XMS_ITS | Encounter Summary ---
Author Organization [facility] Address [address] [place] [address] Care Team Providers Care Blower Operator Name Role Phone Wolfgang Serrano MD Primary Care Provider [phone] Unknown, Notinfile Unavailable Unavailable Santino Funk MD Unavailable Chuy Enriquez MD Unavailable Luis Felipe Cedillo MD Unavailable [phone] Encounter Details Date Type Department Care Team (Late st Contact Info) Description 10/10/2023 Orders Only [facility] Hospitalists [facility] [place] [address] [place] Garcia MD [address] [place] [address] [place] [address] Social History Tobacco Use Types Packs/Day Years [...] relatives? Three times a week 11/25/2021 Attends Restorationist Services Not on file 11/25 Active Member [...] in a fdc (including now)? No 11/25/2021 Personal Safety Answer Date Recorded Getting School Help Needed Denies 10/10 Sex and Gender Information Value Date Recorded Sex Assigned at Not on file Legal Sex Male 3:25 PM PUFFER TENDER Gender Identity Not on file Sexual Orientation Not on file documented as of this encounter Plan of Treatment Upcoming Encounters Date Type Department Care Team (Latest Contact Info) Description 10/23/2024 10:00 AM PUFFER TENDER Hospital Encounter [facility] Operating Room [address] [place] [address] [place] [address] [facility] [address] [place] [address] 10/23/2024 10:00 AM PUFFER TENDER - 10/23/2024 1:00 PM PUFFER TENDER Surgery [facility] Operating Room [address] [place] [address] [place] [address] [facility] [address] [place] [address] ARTHROPLASTY TOTAL KNEE LEFT Scheduled Procedures Name Priority Associated Diagnoses Date/Ti me ARTHROPLASTY TOTAL KNEE left knee osteoarthritis 10/23/2024 10:00 AM PUFFER TENDER ESOPHAGOGASTRODUODENOSCOPY Dysphagia, unspecified type documented as of this encounter Visit Diagnoses Not on filedocumented in this encounter Care Teams Blower Operator Relationship Specialty Start Date End Date Wolfgang Serrano MD PCP - General Family Medicine 05/05/23 08/02/24 Unknown, Notinfile 03/12/22 [place] [address] [facility] [address] [place] [address] 03/12/22 Chuy Enriquez MD [address] [facility] [address] [place] [address] Consulting Physician Pulmonary Disease 10/13/23 Luis Felipe Cedillo MD [address] [facility] [address] [place] [address] Consulting Physician Gastroenterology 10/13/23 documented as of this encounter
--- OUTSIDE RECORDS SUMMARY | 2024-10-11 01:57 | XMS_ITS | Encounter Summary ---
Author Organization [facility] Healthcare Address [address] [place] [address] Care Team Providers Care Associate Professor Of Library Science Name Role Phone Wolfgang Serrano MD Primary Care Provider [phone] Unknown, Notinfile Unavailable Unavailable Santino Funk MD Unavailable Chuy Enriquez MD Unavailable Luis Felipe Cedillo MD Unavailable [phone] Reason for Visit * Diagnostic Imaging (Routine) - Closed Specialty Diagnoses / Procedures Referred By Contac t Referred To Contact Diagnoses Primary osteoarthritis of both knees Procedures XR Knee Right [address] [place] [address] [address] Phone: tel: fax: [facility] Referral ID Status Reason Start Date Expiration Date Visits Re quested Visits Authorized [id number] Closed 11/03/2023 12/02/2024 1 1 Encounter Details Date Type Department Care Team (Latest Contact Info) Description 11/03/2023 10:08 AM BACKEND PYTHON DEVELOPER - 11/03/2023 11:59 PM BACKEND PYTHON DEVELOPER Hospital Encounter [facility] [address] [address] Discharge Disposition: Discharge to home [...] slept in a penitentiary (including now)? No 11/25/2021 Personal Safety Answer Date Recorded Getting School Help Needed Denies 10/10 Sex and Gender Information Value Date Recorded Sex Assigned at Not on file Legal Sex Male 3:25 PM BACKEND PYTHON DEVELOPER Gender Identity Not on file Sexual Orientation Not on file documented as of this encounter Medications at Time of Discharge albuterol HFA (PROVENTIL HFA,VENTOLIN HFA,PROAIR HFA) 90 mcg/actuation inhaler 2 puffs every 4 (four) hours as needed 02/03/2023 capsaicin 0.1 % creamIndications:N europathic Pain Apply to your feet three to four times a day. 60 g 5 12/03/2022 cetirizine (ZyrTEC) 10 mg tablet Take 1 tablet (10 mg total) by mouth daily 09/03/2023 cholecalciferol (VITAMIN D-3) 2000 unit capsule Take 1 capsule (2,000 Units total) by mouth daily 30 capsule 3 12/31/2019 donepeziL (ARICEPT) 10 mg tabletIndications: 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) Take 1 tablet by mouth nightly 30 tablet 06/04/2023 Flovent HFA 44 mcg/actuation inhaler 08/25/2023 levothyroxine (SYNTHROID) 150 mcg tablet Take 1 tablet (150 mcg total) by mouth daily 09/19/2021 melatonin 10 mg tablet Take 1 tablet (10 mg total) by mouth nightly oxybutynin XL (DITROPAN-XL) 10 mg 24 hr tabletIndications: Urinary Urge Incontinence Take 1 tablet (10 mg total) by mouth nightly 11/07/2021 tamsulosin (FLOMAX) 0.4 mg extended release capsule Take 1 capsule (0.4 mg total) by mouth nightly 01/29/2020 tiZANidine (ZANAFLEX) 2 mg tabletIndications: Muscle cramps TAKE 1 TABLET BY MOUTH EVERY 8 HOURS NEEDED FOR MUSCLE SPASM 60 tablet 09/08/2023 turmeric root extract 500 mg capsule Take 1,000 mg by mouth nightly azithromycin (ZITHROMAX) 250 mg tablet TAKE 2 TABLETS BY MOUTH ON DAY 1, AND THEN TAKE 1 TABLET BY MOUTH ONCE A DAY ON DAY 2 THROUGH DAY 5 08/31/2023 4 furosemide (LASIX) 20 mg tablet Take 1 tablet (20 mg total) by mouth 2 (two) times a day 4 gabapentin (NEURONTIN) 100 mg capsuleIndications :Neuropathic pain TAKE 2 CAPSULES BY MOUTH THREE TIMES DAILY 180 capsule 10/08/2023 4 lidocaine (ASPERCREME) 4 % adhesive patch,medicated Place 1 patch on the skin daily for 12 days 12 patch 10/03/2022 4 mirtazapine (REMERON) 7.5 mg tablet TAKE 1 TABLET BY MOUTH ONCE DAILY AT NIGHT 12/19/2021 4 omeprazole (PriLOSEC) 20 mg capsule Take 2 capsules (40 mg total) by mouth daily 60 capsule 11 10/13/2023 4 permethrin (ELIMITE) 5 % cream APPLY FROM THE NECK DOWN AT NIGHT, WASH OFF IN THE MORNING, REPEAT IN 1 WEEK 10/29/2023 4 sildenafiL, pulm.hypertension, (REVATIO) 20 mg tablet Take 1 tablet (20 mg total) by mouth daily 04/17/2022 4 documented as of this encounter Discharge Disposition Disposition Code Departure Means Destination Discharge to home or self care documented in this encounter Plan of Treatment Upcoming Encounters Date Type Department Care Team (Latest Contact Info) Description 10/23/2024 10:00 AM [facility] Hospital Encounter [facility] Operating Room [address] [place] [address] [place] [address] [address] [address] 10/23/2024 10:00 AM BACKEND PYTHON DEVELOPER - 10/23/2024 1:00 PM [facility] Surgery [facility] Operating Room [address] [place] [address] [place] [address] [address] ARTHROPLASTY TOTAL KNEE LEFT Scheduled Procedures Name Priority Associated Diagnoses Date/Ti me ARTHROPLASTY TOTAL KNEE left knee osteoarthritis 10/23/2024 10:00 AM BACKEND PYTHON DEVELOPER ESOPHAGOGASTRODUODENOSCOPY Dysphagia, unspecified type documented as of this encounter Procedures Procedure Name Priority Date/Time Associated Diagnosis Comments XR KNEE RIGHT 3 VIEWS Schedule Routine, Read Routine (OP Routine) 11/03/2023 11:23 AM BACKEND PYTHON DEVELOPER Primary osteoarthritis of both knees documented in this encounter Results * XR Knee Right 3 View (11/03/2023 11:23 AM BACKEND PYTHON DEVELOPER) Anatomical Region Laterality Modality Lower Extremities, Knee Right Computed Radiography Narrative 11/03/2023 11:23 AM BACKEND PYTHON DEVELOPER My interpretation of his x-rays today: ??Three views of his right knee including weight-bearing AP, lateral, and sunrise views show that the instrumentation from his total knee remains in good position. ??There has been no migration or failure of any of the components. ??His knee appears congruent and well aligned. Carol SANDOVAL IM XR PROCEDURES Final Resu lt documented in this encounter Visit Diagnoses Not on filedocumented in this encounter Care Teams Associate Professor Of Library Science Relationship Specialty Start Date End Date Wolfgang Serrano MD PCP - General Family Medicine 05/05/23 08/02/24 Unknown, Notinfile 03/12/22 [place] [address] [address] [facility] [address] [place] [address] 03/12/22 Chuy Enriquez MD [address] [facility] [address] [place] [address] Consulting Physician Pulmonary Disease 10/13/23 Luis Felipe Cedillo MD [address] [facility] [address] [place] [address] Consulting Physician Gastroenterology 10/13/23 documented as of this encounter
--- OUTSIDE RECORDS SUMMARY | 2024-10-11 01:57 | XMS_ITS | Encounter Summary ---
Author Organization [facility] Healthcare Address [address] [place] [address] Care Team Providers Care Service Dog Trainer Name Role Phone Wolfgang Serrano MD Primary Care Provider [phone] Unknown, Notinfile Unavailable Unavailable Santino Funk MD Unavailable [phone] Chuy Enriquez MD Unavailable Luis Felipe Cedillo MD Unavailable [phone] Marlene Thornton MD Unavailable Reason for Visit * Reason Comments Stroke Altered Mental Status Weakness - Generalized Lwkn at 1000 * Auth/Cert (Routine) Specialty Diagnoses / Procedures Referred By Contac t Referred To Contact Diagnoses Acute CVA (cerebrovascular accident) (HCC) Procedures na Referral ID Status Reason Start Date Expiration Date Visits Re quested Visits Authorized [id number] 1 1 Encounter Details Date Type Department Care Team (Late st Contact Info) Description 12/07/2023 12:52 PM RAG 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 - 12/15/2023 2:10 PM RAG 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 Hospital Encounter [facility] [address] [place] [address] Severino Mejía, DO [address] [place] [address] [place] [address] Maxi Carrion MD [address] [place] [address] [place] [id number] [employer] [facility] [address] [place], [place] [id number] [place] [address] [employer] [facility] [address] [place], [place] [id number] Acute CVA (cerebrovascular accident) (HCC) (Primary Dx) Discharge Disposition: Discharge to an Rehab facility Social History Tobacco Use Types Packs/Day Years Used Date Smoking Tobacco: Former Cigarettes 1 1966 Smokeless Tobacco: Never Tobacco Cessation:Counseling Given: No Alcohol Use Standard Drinks/Week Comments Yes 1 (1 standard drink = 0.6 oz pur e alcohol) [facility] Utilities Answer Date Recorded In the past 12 months has [employer] electric, gas, oil, or water [employer] threatened to shut off services in [...] at all 12/16/2023 PHQ-2 Answer Date Recorded PHQ-2 Total Score 0 12/16/2023 [facility] - Occupational [...] medical appointments or from getting medications? No 04/2024 In the past 12 months, has l ack of transportation kept you from meetings, work, or from getting things needed for daily living? No 12/16/2023 Housing Stability Vital Sign Answer Keny e [...] on file Legal Sex Male 3:25 PM RAG 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 Gender Identity Not on file Sexual Orientation Not on file documented as of this encounter Last Filed Vital Signs Vital Sign Reading Time Taken Comments Blood Pressure 129/81 12/15/2023 12:00 PM RAG 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 Pulse 69 12/15/2023 12:01 PM RAG 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 Temperature 36.8 ??C (98.2 ??F) 12/15/2023 12:[address] Respiratory Rate 16 12/15/2023 12:00 PM RAG 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 Oxygen Saturation 97% 12/15/2023 12:00 PM RAG 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 Inhaled Oxygen Concentration - - Weight 103.4 kg (228 lb) 12/14/2023 1:42 PM RAG 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 Height 180.3 cm (5' 11 ) 12/14/2023 1:42 PM RAG 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 Body Mass Index 31.8 12/14/2023 1:42 PM RAG 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 documented in this encounter Discharge Summaries * Sharmin Vera, EDUCATIONAL DIAGNOSTICIAN - 12/15/2023 2:10 PM CST Physician Discharge Summary Patient ID: Gunjan Gtz Jr. [id number] 78 y.o. 1945 Admit date: 12/07/2023 Discharge date and time: 12/21/23 Attending Physician: No att. providers found Discharge Diagnoses: Patient Active Problem List Diagnosis Primary osteoarthritis [...] CVA (cerebrovascular accident) (HCC) Moderate malnutrition (CMS/HCC) Last 48 Hours Recent Labs Lab Units 12/20/23 0404 12/16/23 0411 WBC K/cumm 7.9 9.2 HEMOGLOBIN g/dL 13.7 13.3 HEMATOCRIT % 42.0 40.3 PLATELETS K/cumm 253 259 NEUTROS PCT % 63.4 60.3 LYMPHS PCT % 18.1 23.7 MONOS PCT % 15.5 11.5 EOS PCT % 1.6 3.5 Recent Labs Lab Units 12/20/23 0404 12/16/23 0411 SODIUM mmol/L 139 138 POTASSIUM PLASMA mmol/L 4.6 4.3 CHLORIDE mmol/L 104 103 CO2 mmol/L 25 25 ANIONGAP mmol/L 10 10 GLUCOSE mg/dL 112 107 BUN SERUM mg/dL 19 22 CREATININE mg/dL 1.25 1.09 CALCIUM mg/dL 9.0 8.9 ALBUMIN g/dL 3.4* 3.4* ALK PHOS Units/L 117 116 ALT Units/L 16 11 AST Units/L 24 16 BILIRUBIN TOTAL mg/dL 0.4 0.4 Hospital Course: Gunjan Gtz Jr. is a 78 y.o. male with a past medical history of seizure, asthma, GERD, GE junction diverticulum, hyperlipidemia, hypothyroidism and AAA who presented to the ED via EMS from the [facility] on , complaining of sudden onset of difficulty with his speech, left arm weakness, left leg weakness. Patient was driving his car and had pulled up to the parking lot to see his orthopedic surgeon today, when he realized that he had developed weakness in the left hand and arm. He noticed he had trouble reaching up to put the blinker on, and then when he tried to open the car door with his left hand he struggled to do this because the arm was weak. He tried to get up out of the car and realized his left leg was weak also. He slid to the ground, but he was unable to help himself back up by pulling himself up on the open car door. He sat himself back down in the car, called his orthopedic surgeon's office, and they called 911. He had an NIH stroke scale of 8 his blood pressureon admission 130/84 mm Hg respiratory rate 14 per minute pulse rate 72 per minute temperature 98.6?? F. CT of the head CTA of the head and neck showed no acute ischemia or large vessel occlusion. No significant stenosis of the carotid vessels. Interval History: 12/07: Patient admitted to the ICU acute right cerebral ischemic stroke. He is s/p TNK at 1330 on 12/07/2023. Neuro deficits improving. 12/08: Pt with newly worsened left facial droop and LUE weakness this afternoon after 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 I assessed pt and he has more pronounced facial droop and now 3/5 instead of 4/5 strength in LUE. Stat noncon CTH ordered andshowed no bleeding. I spoke with Dr. Mahajan neurologist, who advised that internal capsule stroke can progress but there is no specific treatment for it, ok to start ASA and ok to transfer to floor with Q4H neuro checks.Patient updated regarding the results and discussion. : Patient seen and examined. Sitting in chair. Awake and alert x3. Family at bedside. Denies any complaints. Left facial droop. Speech clear and understandable. Left-sided weakness. 12/09: C/o blurry vision , no other complains 12/10: Patient awake and alert, sitting in chair. Reports left sided weakness persists. Also complains of blurred and double vision. Also complains of mild headache. Patient requests home sleep aides. and daughter at bedside. states patient has difficulty swallowing food as it gets stuck inthe mouth on the left side. RN reports patient coffee ground emesis overnight. Aspirin and lovenox currently on hold. No further episodes. 12/11: Patient awake and alert, sitting in chair. Left-sided symptoms persist. Patient complains of eyelids feeling heavy, which is new today. Currently denies blurred vision, double vision. He reportshistory of dry eyes and uses ofloxacin eye drops as needed at home. No further episodes of emesis. and son at bedside. Contacted neurology. 12/12: Patient awake and alert, sitting in chair. Left hemiparesis persists. No further episodes of hematemesis. Requests diet to be changed back to regular consistency. Family at bedside. 12/13: Patient awake and alert, sitting in chair. Left hemiparesis persists. Still no bowel movement.Daughter at bedside. 12/14: Pt HD stable and will transfer to inpatient rehab Assessment and Plan Principal Problem: Acute CVA (cerebrovascular accident) (HCC) Acute ischemic right cerebral stroke, POA - s/p TNK, post thrombolytic care on 12/07/23 with neuro checks -Aspirin on hold. Rosuvastatin. - TTE with bubble study showed no evidence of right to left shunt. - MRI brain 12/08/23 showing acute infarct posterior limb internal capsule right side. Underlying atrophy and small-vessel disease. No hemorrhagic changes identified. -PT/OT/REGISTERED MEDICAL ASSISTANT -Change diet to mechanical soft on 12/10, change back to regular consistency on 12/12 -Repeat CT negative for hemorrhage on 12/11. Resumed aspirin, continue Possible GI bleed on 12/09-12/10, no further episodes of bleeding -Resumed aspirin -Holding lovenox -FOB negative -Protonix IV -Hgb stable HTN, POA - Controlled -prn Hydralazine for SBP< 185 or DBP > 110 -monitor blood pressure closely and treat accordingly HLD, POA - continue with statin Asthma -No acute exacerbation - resume prn albuterol AAA, POA - HTN control when post acute stroke - statin GERD/ PUD, POA - continue Protonix Hypothyroidism -levothyroxine Alzheimer, POA - continue home Donepezil Depression, POA - continue home Mirtazapine BPH -continue Flomax Insomnia, POA - replace home melatonin with ramelteon prn -home ambien prn OA -Resume home percocet Constipation -Start miralax, colace. Add lactulose. VTE Prophylaxis with enoxaparin on hold Discharge Exam: Constitutional: NAD Resp. Lung sounds clear, no rales and wheezing CVS. S1 S2 Abdomen. Soft, NT, BS present. No mass. No visceromegaly. Neuro. AAO x 3. No motor or sensory deficit. CN 2-12 intact. Strength is normal. LE. No pedal edema. No erythema Skin. Warm and dry. Musculoskeletal . No joint deformity, No tenderness. No swelling Discharged Condition: stable Discharge Instructions: Diet Instructions Recommend to eat a generally healthy diet that includes a variety of fruits, vegetables, whole-grain breads, low-fat dairy products, beans, lean meats, and fish. Avoid saturated and trans fats and limit sodium to less than 2,300 mg per day. Avoid foods like desserts, fast food, fried/breaded foods,deli meats, sausage, gutierrez, and gravies/sauces. Call [phone] to speak with a dietitian about any diet related concerns. Recommend to follow up with outpatient nutrition counseling, ask your doctor for a referral and call [phone] to make an appointment. Discharge Meds: Your medication list ASK your doctor about these medications Instructions Last Dose Given Next Dose Due Advair HFA 230-21 mcg/actuation inhaler Generic drug: fluticasone propion-salmeteroL Inhale 2 puffs 2 (two) times a day albuterol HFA 90 mcg/actuation inhaler Commonly known as: PROVENTIL HFA,VENTOLIN HFA,PROAIR HFA 2 puffs every 4 (four) hours as needed azithromycin 250 mg tablet Commonly known as: ZITHROMAX TAKE 2 TABLETS BY MOUTH ON DAY 1, AND THEN TAKE 1 TABLET BY MOUTH ONCE A DAY ON DAY 2 THROUGH DAY 5 capsaicin 0.1 % cream Apply to your feet three to four times a day. cetirizine 10 mg tablet Commonly known as: ZyrTEC Take 1 tablet (10 mg total) by mouth daily cholecalciferol 2000 unit capsule Commonly known as: VITAMIN D-3 Take 1 capsule (2,000 Units total) by mouth daily clobetasoL 0.05 % ointment Commonly known as: TEMOVATE Apply topically 2 (two) times a day To most severe rash/itch on your skin. Do not use on face, armpits, or groin. If your most severe rash has yellow crusts/flakes, then mix clobetasol ointment 1:1 with mupirocin ointment before applying it. For less severe rash/itch, use triamcinolone cream sent as a separate prescription. donepeziL 10 mg tablet Commonly known as: ARICEPT Take 1 tablet by mouth nightly eszopiclone 2 mg tablet Commonly known as: LUNESTA BRING TABLET WITH YOU TO SLEEP LAB Flovent HFA 44 mcg/actuation inhaler Generic drug: fluticasone propionate INHALE 2 PUFFS BY MOUTH TWICE DAILY EVERY 12 HOURS furosemide 20 mg tablet Commonly known as: LASIX Take 1 tablet (20 mg total) by mouth 2 (two) times a day gabapentin 300 mg capsule Commonly known as: NEURONTIN Ask about: Which instructions should I use? Take 2 capsules (600 mg total) by mouth 3 (three) times a day levothyroxine 150 mcg tablet Commonly known as: SYNTHROID Take 1 tablet (150 mcg total) by mouth daily lidocaine 4 % adhesive patch,medicated Commonly known as: ASPERCREME Place 1 patch on the skin daily for 12 days melatonin 10 mg tablet Take 1 tablet (10 mg total) by mouth nightly mirtazapine 7.5 mg tablet Commonly known as: REMERON TAKE 1 TABLET BY MOUTH ONCE DAILY AT NIGHT mupirocin 2 % ointment Commonly known as: BACTROBAN Apply topically 2 (two) times a day If your most severe itchy rash has yellow crusts/flakes, then mix mupirocin 1:1 with clobetsol ointment before applying them to your rash. For less severe rash/itch, use triamcinolone cream sent as a separate prescription. omeprazole 20 mg capsule Commonly known as: PriLOSEC Take 2 capsules (40 mg total) by mouth daily oxyBUTYnin XL 10 mg 24 hr tablet Commonly known as: DITROPAN-XL Take 15 mg by mouth nightly permethrin 5 % cream Commonly known as: ELIMITE APPLY FROM THE NECK DOWN AT NIGHT, WASH OFF IN THE MORNING, REPEAT IN 1 WEEK pravastatin 10 mg tablet Commonly known as: PRAVACHOL Take 1 tablet (10 mg total) by mouth daily sildenafiL (pulm.hypertension) 20 mg tablet Commonly known as: REVATIO Take 1 tablet (20 mg total) by mouth daily spironolactone 25 mg tablet Commonly known as: ALDACTONE Take 1 tablet (25 mg total) by mouth daily tamsulosin 0.4 mg extended release capsule Commonly known as: FLOMAX Take 1 capsule (0.4 mg total) by mouth nightly tiZANidine 2 mg tablet Commonly known as: ZANAFLEX TAKE 1 TABLET BY MOUTH EVERY 8 HOURS NEEDED FOR MUSCLE SPASM triamcinolone 0.1 % cream Commonly known as: KENALOG Apply topically 2 (two) times a day as needed for rash Or itch on the skin. Do not use on face, armpits, or groin. For more severe rash/itch, use clobetasol/mupirocin sent as a separate prescription. turmeric root extract 500 mg capsule Take 1,000 mg by mouth nightly zolpidem 5 mg tablet Commonly known as: AMBIEN Take 1 tablet (5 mg total) by mouth nightly at bedtime. Disposition: Short term rehab OUTPATIENT FOLLOW-UP: Wolfgang Serrano MD [address] [address] Time spent on discharge: 75 min Signed: Sharmin Vera NP 12/21/2023 2:42 PM Cosigned by Carlos Chaves MD at 12/28/2023 2:37 PM CDT documented in this encounter Discharge Instructions * Discharge Instr - Diet* Trini Justin RD - 12/08/2023 1:37 PM RAG 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 Recommend to eat a generally healthy diet that includes a variety of fruits, vegetables, whole-grain breads, low-fat dairy products, beans, lean meats, and fish. Avoid saturated and trans fats and limit sodium to less than 2,300 mg per day. Avoid foods like desserts, fast food, fried/breaded foods,deli meats, sausage, gutierrez, and gravies/sauces. Call [phone] to speak with a dietitian about any diet related concerns. Recommend to follow up with outpatient nutrition counseling, ask your doctor for a referral and call [phone] to make an appointment. 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 * Attachments The following attachments cannot be sent through Care Everywhere. * Stroke ([employer] Executive Producer) (Latvian) * Stroke (General Information) (Latvian) documented in this encounter Medications at Time [...] by mouth daily 90 tablet 01/07/2024 06/14/20 azithromycin (ZITHROMAX) 250 mg tablet TAKE 2 TABLETS BY MOUTH ON DAY 1, AND THEN TAKE 1 TABLET BY MOUTH ONCE A DAY ON DAY 2 THROUGH DAY 5 08/31/2023 01/07/20 24 eszopiclone (LUNESTA) 2 mg tablet BRING TABLET WITH YOU TO SLEEP LAB 11/15/2023 01/07/20 furosemide (LASIX) 20 mg tablet Take 1 tablet (20 mg total) by mouth 2 (two) times a day 01/07/20 lidocaine (ASPERCREME) 4 % adhesive patch,medicated Place 1 patch on the skin daily for 12 days 12 patch 10/03/2022 06/14/20 mirtazapine (REMERON) 7.5 mg tablet TAKE 1 TABLET BY MOUTH ONCE DAILY AT NIGHT 12/19/2021 01/07/20 24 mupirocin (BACTROBAN) 2 % ointment Apply topically 2 (two) times a day If your most severe itchy rash has yellow crusts/flakes, then mix mupirocin 1:1 with clobetsol ointment before applying them to your rash. For less severe rash/itch, use triamcinolone cream sent as a separate prescription. 30 g 3 11/17/2023 01/07/20 24 omeprazole (PriLOSEC) 20 mg capsule Take 2 capsules (40 mg total) by mouth daily 60 capsule 11 10/13/2023 01/07/20 24 permethrin (ELIMITE) 5 % cream APPLY FROM THE NECK DOWN AT NIGHT, WASH OFF IN THE MORNING, REPEAT IN 1 WEEK 10/29/2023 01/07/20 24 pravastatin (PRAVACHOL) 10 mg tablet Take 1 tablet (10 mg total) by mouth daily 12/01/2023 01/07/20 24 rosuvastatin (CRESTOR) 40 mg tabletIndications :Secondary Stroke Prevention Take 1 tablet (40 mg total) by mouth daily 90 tablet 01/07/2024 06/14/20 24 sildenafiL, pulm.hypertension , (REVATIO) 20 mg tablet Take 1 tablet (20 mg total) by mouth daily 04/17/2022 01/07/20 24 spironolactone (ALDACTONE) 25 mg tablet Take 1 tablet (25 mg total) by mouth daily 12/05/2023 01/07/20 24 triamcinolone (KENALOG) 0.1 % creamIndications: Skin Inflammation Apply topically 2 (two) times a day as needed for rash Or itch on the skin. Do not use on face, armpits, or groin. For more severe rash/itch, use clobetasol/mupiroc in sent as a separate prescription. 453.6 g 2 11/17/2023 01/07/20 24 zolpidem (AMBIEN) 5 mg tablet Take 1 tablet (5 mg total) by mouth nightly at bedtime. 11/15/2023 01/07/20 24 documented as of this encounter Discharge Disposition Disposition Code Departure Means Destination Comment s Discharge to an Rehab facility CAR RAMIREZ documented in this encounter Progress Notes * Paresh Prieto, REGISTERED MEDICAL ASSISTANT - 12/15/2023 9:31 AM CST SPEECH LANGUAGE PATHOLOGY PROGRESS NOTE Patient's Name: Gunjan Gtz Jr. : 1945 Age: 78 y.o. Time In: 9:10 Time Out: 9:34 Patient Active Problem List Diagnosis Primary osteoarthritis of both knees Subchondral insufficiency fracture of condyle of left femur (CMS/HCC) ([facility]) Closed fracture of left tibial plateau with [...] (HCC) Iron deficiency anemia Peripheral vascular disease ([facility]) Pain due to total right knee replacement [...] Infrarenal abdominal aortic aneurysm (AAA) without rupture ([facility]) Acute CVA (cerebrovascular accident) ([facility]) Past Medical History: Diagnosis Date Acute gastric ulcer without hemorrhage or perforation Ulcer, gastric, acute - (Added by TW Conv) Alzheimer's dementia ([facility]) Asthma Back pain Cataract Closed fracture of left tibial plateau with delayed healing Closed fracture of right tibial plateau with delayed healing Closed nondisplaced osteochondral fracture of left patella with delayed healing Closed osteochondral fracture of patella, right, with delayed healing, subsequent encounter Clotting disorder (CMS/HCC) ([facility]) Complex tear of medial meniscus of left knee as current injury Complex tear of medial meniscus of right knee as current injury Cramps of lower extremity Diverticulitis of colon Easy bruisability Fatigue Frequent urination Gastroesophageal reflux disease GERD Hypothyroidism Incontinence of urine Muscle weakness Osteoarthritis Osteoarthritis Peptic ulcer Peptic ulcer disease Seizures ([facility]) 1997 last seizure in 1997 SOB (shortness of breath) on exertion Subchondral insufficiency fracture of condyle of left femur (CMS/[facility]) ([facility]) Vertigo Vision changes Visual disturbance hx of double vision, corrective lenses Past Surgical History: Procedure Laterality Date CATARACT EXTRACTION, BILATERAL Bilateral 2018 HERNIA REPAIR 1979 Hiatal Hernia repair KNEE ARTHROSCOPY Bilateral THYROIDECTOMY 12/27/2019 SUBJECTIVE MENTAL STATUS: Patient awake, resting in bed. States, I'm not feeling so hot. Just tired. PAIN: Pre Therapy Pain Level: 0/10 Pain Location: N/A Pain Intervention: N/A Post Therapy Pain Level/Response to Intervention: 0/10 OBJECTIVE PRECAUTIONS: Fall, Seizure SWALLOWING: Swallow assessed by REGISTERED MEDICAL ASSISTANT. Regular consistency diet/thin liquids recommended. Patient's reports patient having difficulty with food getting stuck on left side of mouth. EDUCATIONAL DIAGNOSTICIAN changed dietto mechanical soft/thin liquids. Patient with decreased appetite and diet advanced to regular consistency. COGNITION: Cognitive deficits in insight, short term memory with left visual field inattention. COMMUNICATION: Mild dysarthric speech TREATMENT ACTIVITIES: Recall daily activities/recent events with 100% accuracy Elicit spontaneous sentences with 80% intelligibility independently and 90% with verbal cues. Oral motor exercises 10x each given a model. EDUCATION: PATIENT/FAMILY EDUCATION: Reviewed progress and goals once patient is on acute rehab Response to Education: Understanding verbalized ASSESSMENT Activity Tolerance/Response to S.T.: Tolerated speech therapy session with no complaints Barriers to learning: Cognition, Vision Current status: Patient with mild dysarthria with left facial asymmetry. Requires verbal cues to initiate dry swallow to clear excess secretions. Progress toward goals: Patient continues to progress toward previously set goals which remain appropriate at this time. PLAN Multi-Disciplinary Problems (from Speech Therapy) Active Problems Problem: Cognitive/Linguistics Start Date: 12/09/23 Goal Start Date Expected End Date End Date STG - Patient will recall new information 12/09/23 12/16/23 -- Goal Details: With 80% accuracy Goal Start Date Expected End Date End Date STG - Patient will participate in further assessment of cognitive-linguistic skills 12/09/23 12/16/23 -- Problem: Communication/Motor Speech Start Date: 12/09/23 Goal Start Date Expected End Date End Date STG - Patient will participate in oral-motor exercises to improve strength 12/09/23 12/16/23 -- Frequency of Treatment: OD, 5xs weekly Recommendations: Recommend acute rehab pending qualifying criteria If this is the last note, consider this the discharge summary. 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 * Paresh Prieto, REGISTERED MEDICAL ASSISTANT - 12/14/2023 3:13 PM CST SPEECH LANGUAGE PATHOLOGY PROGRESS NOTE Patient's Name: Gunjan Gtz Jr. : 1945 Age: 78 y.o. Time In: 14:55 Time Out: 15:10 Patient Active Problem List Diagnosis Primary osteoarthritis of both knees Subchondral insufficiency fracture of condyle of left femur (CMS/[facility]) ([facility]) Closed fracture of left tibial plateau with [...] Skin lesion of breast Edema Intermittent claudication ([facility]) Iron deficiency anemia Peripheral vascular disease ([facility]) Pain due to total right knee replacement (CMS/HCC) ([facility]) Hamstring tendinitis of right thigh Quadriceps weakness Idiopathic peripheral neuropathy Abnormality of gait and mobility Hx of total knee replacement, right Neuropathy ([facility]) 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 Biceps tendinitis of left upper extremity Tear of left glenoid labrum Coffee ground emesis Upper GI bleed Acquired hypothyroidism Acute blood loss anemia Lung nodule Nocturnal cough Hiatal hernia Infrarenal abdominal aortic aneurysm (AAA) without rupture ([facility]) Acute CVA (cerebrovascular accident) ([facility]) Past Medical History: Diagnosis Date Acute gastric ulcer without hemorrhage or perforation Ulcer, gastric, acute - (Added by TW Conv) Alzheimer's dementia ([facility]) Asthma Back pain Cataract Closed fracture of left tibial plateau with delayed healing Closed fracture of right tibial plateau with delayed healing Closed nondisplaced osteochondral fracture of left patella with delayed healing Closed osteochondral fracture of patella, right, with delayed healing, subsequent encounter Clotting disorder ([facility]) ([facility]) Complex tear of medial meniscus of left knee as current injury Complex tear of medial meniscus of right knee as current injury Cramps of lower extremity Diverticulitis of colon Easy bruisability Fatigue Frequent urination Gastroesophageal reflux disease GERD Hypothyroidism Incontinence of urine Muscle weakness Osteoarthritis Osteoarthritis Peptic ulcer Peptic ulcer disease Seizures ([facility]) 1997 last seizure in 1997 SOB (shortness of breath) on exertion Subchondral insufficiency fracture of condyle of left femur (CMS/HCC) ([facility]) Vertigo Vision changes Visual disturbance hx of double vision, corrective lenses Past Surgical History: Procedure Laterality Date CATARACT EXTRACTION, BILATERAL Bilateral 2018 HERNIA REPAIR 1979 Hiatal Hernia repair KNEE ARTHROSCOPY Bilateral THYROIDECTOMY 12/27/2019 SUBJECTIVE MENTAL STATUS: Patient sleepy, resting in bed. Awaiting to have BM to be able to transfer to acute rehab. PAIN: Pre Therapy Pain Level: 0/10 Pain Location: N/A Pain Intervention: N/A Post Therapy Pain Level/Response to Intervention: 0/10 OBJECTIVE PRECAUTIONS: Fall, Seizure SWALLOWING: Swallow assessed by REGISTERED MEDICAL ASSISTANT. Regular consistency diet/thin liquids recommended. Patient's reports patient having difficulty with food getting stuck on left side of mouth. EDUCATIONAL DIAGNOSTICIAN changed dietto mechanical soft/thin liquids. Patient with decreased appetite and diet advanced to regular consistency. COGNITION: Cognitive deficits in short term memory and insight. COMMUNICATION: Mild dysarthric speech. TREATMENT ACTIVITIES: Patient with decreased secretion management with anterior spillage from left side. With verbal cuespatient able to swallow and clear saliva from oral cavity. EDUCATION: PATIENT/FAMILY EDUCATION: Reviewed acute rehab schedule with patient Response to Education: Understanding verbalized ASSESSMENT Activity Tolerance/Response to S.T.: Tolerated speech therapy session well Barriers to learning: Cognition Current status: Patient reports coughing throughout the day. Appears to be on excess saliva. Discussed strategies to clear secretions. Progress toward goals: Patient continues to progress toward previously set goals which remain appropriate at this time. PLAN Multi-Disciplinary Problems (from Speech Therapy) Active Problems Problem: Cognitive/Linguistics Start Date: 12/09/23 Goal Start Date Expected End Date End Date STG - Patient will recall new information 12/09/23 12/16/23 -- Goal Details: With 80% accuracy Goal Start Date Expected End Date End Date STG - Patient will participate in further assessment of cognitive-linguistic skills 12/09/23 12/16/23 -- Problem: Communication/Motor Speech Start Date: 12/09/23 Goal Start Date Expected End Date End Date STG - Patient will participate in oral-motor exercises to improve strength 12/09/23 12/16/23 -- Frequency of Treatment: OD, 5xs weekly Recommendations: Recommend acute rehab pending qualifying criteria. If this is the last note, consider this the discharge summary. 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 * Zheng Veras, JAE - 12/14/2023 11:45 AM CST Hospitalist Progress Note Name: Gunjan Gtz JrMason Admission Date: 12/07/2023 Today's Date: 12/14/2023 Assessment: Subjective: Clinical course: Patient awake and alert, sitting in chair. Left hemiparesis persists. Still no bowel movement. Daughter at bedside. Review of Systems Constitutional: Negative for chills, fever and malaise/fatigue. Respiratory: Negative for shortness of breath. Cardiovascular: Negative for chest pain. Gastrointestinal: Positive for constipation. Negative for abdominal pain, nausea and vomiting. Genitourinary: Negative for dysuria. Neurological: Positive for sensory change, speech change and focal weakness. Negative for headaches. Objective: Vitals: 12/14/23 0000 12/14/23 0400 12/14/23 0816 12/14/23 1036 BP: 133/57 126/71 129/81 BP Location: Right arm Right arm Right arm Patient Position: HOB 30 degrees;Lying HOB 30 degrees;Lying HOB 30 degrees Pulse: 62 57 67 Resp: Temp: 36.4 ??C (97.6 ??F) 36.5 ??C (97.7 ??F) 36.4 ??C (97.6 ??F) TempSrc: Oral Oral Oral SpO2: 97% 94% 96% 97% Weight: Height: Wt Readings from Last 3 Encounters: 12/09/23 106.1 kg (233 lb 12.8 oz) 12/08/23 103.4 kg (227 lb 15.3 oz) 11/12/23 99.8 kg (220 lb) I/O last 3 completed shifts: In: 270 [P.O.:240; I.V.:20; IV Piggyback:10] Out: - No intake/output data recorded. Scheduled Meds Current Facility-Administered Medications Medication Dose Route Frequency Provider Last Rate Last Admin acetaminophen (TYLENOL) tablet 650 mg 650 mg oral Q4H PRN Bernard Casillas MD 650 mg at 12/11/23 1344 Or acetaminophen (TYLENOL) 32 mg/mL oral liquid 650 mg 650 mg feeding tube Q4H PRN Bernard Casillas MD 650 mg at 12/13/23 2125 Or acetaminophen (TYLENOL) suppository 650 mg 650 mg rectal Q4H PRN Bernard Casillas MD albuterol HFA (PROVENTIL HFA,VENTOLIN HFA,PROAIR HFA) 90 mcg/actuation inhaler 2 puff 2 puff inhalation Q4H PRN (RT) Bernard Casillas MD aspirin chewable tablet 81 mg 81 mg oral Daily Bernard Casillas MD 81 mg at 12/14/23 0816 Carrier Fluids for Secondary Infusion - 0.9% Sodium Chloride 30 mL intravenous PRN Bernrad Casillas MD dextrose oral liquid liquid 15 g 15 g oral Q15 Min PRN Bernard Casillas MD Or dextrose (D10W) 10% bolus 250 mL 250 mL intravenous Q15 Min PRN Bernard Casillas MD docusate sodium (COLACE) capsule 100 mg 100 mg oral BID Zheng Veras, EDUCATIONAL DIAGNOSTICIAN 100 mg at 12/14/23 0816 donepeziL (ARICEPT) tablet 10 mg 10 mg oral Nightly Bernard Casillas MD 10 mg at 12/13/232115 [Held by Provider] enoxaparin (LOVENOX) syringe 40 mg 40 mg subcutaneous Daily- 2100 Bernard Casillas MD 40 mg at 12/10/232047 fluticasone furoate-vilanteroL (BREO ELLIPTA) 100-25 mcg/dose inhaler 1 puff 1 puff inhalation Daily (RT) Bernard Casillas MD 1 puff at 12/14/23 1036 gabapentin (NEURONTIN) capsule 300 mg 300 mg oral TID Bernard Casillas MD 300 mg at 12/14/23 0816 glucagon injection 1 mg 1 mg intramuscular Q30 Min PRN Bernard Casillas MD hydrALAZINE (APRESOLINE) injection 10 mg 10 mg intravenous Q15 Min PRN Bernard Casillas MD levothyroxine (SYNTHROID) tablet 150 mcg 150 mcg oral Daily - 0600 Bernard Casillas MD 150 mcg at12/14/23 0645 ofloxacin (OCUFLOX) 0.3 % ophthalmic solution 1 drop 1 drop each eye Daily PRN Zheng Veras NP 1 drop at 12/12/23 1555 ondansetron (ZOFRAN) injection 4 mg 4 mg intravenous Q4H PRN Kristen Isabel NP 4 mg at 12/11/23 0142 oxyCODONE-acetaminophen (PERCOCET) 5-325 mg per tablet 1 tablet 1 tablet oral QID PRN Carlos Chaves MD 1 tablet at 12/14/23 1039 pantoprazole (PROTONIX) 40 mg in sodium chloride 0.9% 10 mL IV Syringe 40 mg intravenous BID Kristen Isabel NP 40 mg at 12/14/23 0816 polyethylene glycol (MIRALAX) packet 17 g 17 g oral Daily Zheng Veras NP 17 g at 12/14/23 0816 ramelteon (ROZEREM) tablet 8 mg 8 mg oral Nightly PRN Bernard Casillas MD 8 mg at 12/13/23 2121 rosuvastatin (CRESTOR) tablet 40 mg 40 mg oral Daily Lianet Mckinney NP 40 mg at 12/14/23 0816 sodium chloride 0.9% flush 0.5-20 mL 0.5-20 mL intra-catheter Q8H AIMEE Bernard Casillas MD 10 mL at 12/14/23 0646 sodium chloride 0.9% flush 0.5-20 mL 0.5-20 mL intra-catheter PRN Bernard Casillas MD tamsulosin (FLOMAX) extended release capsule 0.4 mg 0.4 mg oral Nightly Bernard Casillas MD 0.4 mg at 12/13/232114 tiZANidine (ZANAFLEX) tablet 2 mg 2 mg oral TID PRN Bernard Casillas MD 2 mg at 12/08/23 1019 zolpidem (AMBIEN) tablet 5 mg 5 mg oral Nightly PRN Zheng Veras NP 5 mg at 12/12/232035 acetaminophen OR acetaminophen OR acetaminophen albuterol HFA sodium chloride 0.9% dextrose OR dextrose glucagon hydrALAZINE OR [DISCONTINUED] labetalol ofloxacin ondansetron oxyCODONE-acetaminophen ramelteon sodium chloride 0.9% tiZANidine zolpidem Physical Exam Constitutional: General: He is not in acute distress. Appearance: He is not toxic-appearing or diaphoretic. HENT: Head: Normocephalic and atraumatic. Eyes: General: No scleral icterus. Cardiovascular: Rate and Rhythm: Normal rate and regular rhythm. Pulmonary: Effort: Pulmonary effort is normal. No respiratory distress. Abdominal: General: There is distension. Palpations: Abdomen is soft. Musculoskeletal: Cervical back: Neck supple. Right lower leg: No edema. Left lower leg: No edema. Skin: General: Skin is warm and dry. Findings: No rash. Neurological: Mental Status: He is alert and oriented to person, place, and time. Comments: Left hemiparesis, facial droop. Dysarthria. Lab Data Laboratory review: Chemistry CMP: Lab Results Component Value Date BUNSER 23 12/14/2023 CALCIUM 9.0 12/14/2023 CO2 24 12/14/2023 CHLORIDE 104 12/14/2023 CREATININE 1.12 12/14/2023 GLUCOSE 118 12/14/2023 POTASSIUM 4.2 12/14/2023 SODIUM 138 12/14/2023 , CBC: Lab Results Component Value Date WBC 8.3 12/14/2023 RBC 4.27 (L) 12/14/2023 HGB 13.6 12/14/2023 HCT 41.8 12/14/2023 MCV 97.9 (H) 12/14/2023 MCH 31.9 12/14/2023 MCHC 32.5 12/14/2023 RDWCV 13.2 12/14/2023 RDWSD 46.9 12/14/2023 MPV 10.2 12/14/2023 NRBCABS 0.00 12/14/2023 , Coags: No results found for: PT , PTT , APTT , FFN , FIBRINOGEN , INR , ACTIVATEDCL , Lipids: No results found for: CHOL , CHLPL , HDL , LDLCALC , TRIG , CHOLHDL , Cardiac Enzymes: No results found for: CKTOTAL , CKMB , CKMBINDEX , TROPONINT and POC Glucose: Lab Results Component Value Date GLUCOSE 118 12/14/2023 Assessment and Plan Principal Problem: Acute CVA (cerebrovascular accident) (HCC) Acute ischemic right cerebral stroke, POA - s/p TNK, post thrombolytic care on 12/07/23 with neuro checks -Aspirin on hold. Rosuvastatin. - TTE with bubble study showed no evidence of right to left shunt. - MRI brain 12/08/23 showing acute infarct posterior limb internal capsule right side. Underlying atrophy and small-vessel disease. No hemorrhagic changes identified. -PT/OT/REGISTERED MEDICAL ASSISTANT -Change diet to mechanical soft on 12/10, change back to regular consistency on 12/12 -Repeat CT negative for hemorrhage on 12/11. Resumed aspirin Possible GI bleed on 12/09-12/10, no further episodes of bleeding -Resumed aspirin -Holding lovenox -FOB pending -Protonix IV -Hgb stable HTN, POA - Under control -prn Hydralazine for SBP< 185 or DBP > 110 -monitor blood pressure closely and treat accordingly HLD, POA - continue with statin Asthma -patient not in exacerbation - resume prn albuterol AAA, POA - HTN control when post acute stroke - statin GERD/ PUD, POA - continue Protonix Hypothyroidism -levothyroxine Alzheimer, POA - continue home Donepezil Depression, POA - continue home Mirtazapine BPH -continue Flomax Insomnia, POA - replace home melatonin with ramelteon prn -home ambien prn OA -Resume home percocet Constipation -Start miralax, colace. Add lactulose. VTE Prophylaxis with enoxaparin on hold Pt will need continued inpatient management for the above medical issues. Disposition: Plan to discharge to [facility] status post bowel movement and if FOB negative. CONSULTS RADIOGRAPHY TECHNICIAN CONSULT IP CONSULT TO NUTRITION SERVICES IP CONSULT TO NEUROLOGY IP CONSULT TO SOCIAL WORK IP CONSULT TO SOCIAL WORK IP CONSULT TO SOCIAL WORK Zheng Veras NP [facility] Hospitalist 12/14/2023 11:46 AM 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 * Kenyatta Hummel PTA - 12/14/2023 9:56 AM CST Physical Therapy PT PROGRESS NOTE PATIENT'S NAME:Gunjan Gtz Jr. :1945 AGE:78 y.o. ROOM:[place] [address] Past Medical History: Diagnosis Date Acute gastric [...] delayed healing, subsequent encounter Clotting disorder (CMS/HCC) ([facility]) Complex tear of medial meniscus [...] Skin lesion of breast Edema Intermittent claudication ([facility]) Iron deficiency anemia Peripheral vascular disease ([facility]) Pain due to total right knee replacement (CMS/HCC) ([facility]) Hamstring tendinitis of right thigh Quadriceps weakness [...] Infrarenal abdominal aortic aneurysm (AAA) without rupture ([facility]) Acute CVA (cerebrovascular accident) ([facility]) TIME IN: 955 TIME OUT: 1053 SUBJECTIVE Yes MENTAL STATUS/ORIENTATION: Alert and oriented x4 PAIN: Pre-therapy pain level: 0/10 Pain location: n/a Pain intervention: n/a Post-therapy pain level/response to intervention: unchanged OBJECTIVE PRECAUTIONS: fall and bed / chair alarm APPEARANCE/POSTURE: pt supine w/HOB elevated, alarm active, hospital gown & socks, telemetry, and agreeable to therapy. VITAL SIGNS: Resting heart rate: 60 Resting O2 sat: 97% on RA MOBILITY DOCUMENTATION: Bed Mobility/Transfers: pt transfers mod [...] knee buckling/unsteady requiring blocking from therapist to take step w/R LE, and vc for sequencing. TREATMENT: Pt performed B LE seated HEP x10-15 reps SPV on R LE, SPV to mod A for L LE. APPEARANCE/POSTURE (end of session): pt sitting in recliner, alarm active, call light in reach. EDUCATION:bed mobility , therapeutic exercises , functional transfer training, gait training , safety , and durable medical equipment education RESPONSE TO EDUCATION: needs reinforcement ASSESSMENT Activity tolerance/response to P.T.: Pt w/limited amb tolerance due to muscle fatigue & pn in Lknee this session. Pt w/noted more L knee instability as well. Barriers to learning: Language, Physical, and Cognitive Barriers to discharge: Pain, Limited family support, Limited safety awareness, Decreased endurance,Decreased proprioception, Upper extremity weakness, Lower extremity weakness, Long standing deficits, Medical complications, and Stairs at home Patient continues progressing toward previously set goals which remain appropriate at this time. PLAN PT Discharge Recommendations this date: PT Recommendation/Plan: Inpatient Rehab Facility Patient at high risk for: Falls, Readmission, Injury due to decreased ability to care for self, Injury due to reduced functional status, Injury due to impaired cognition, Injury due to balance deficits, Injury at home as patient has not returned to prior level of function, Developing impaired skin integrity, Cognitive decline due to decreased social participation, Prolonged dependence for self care tasks, Improper use of DME Recommend Inpatient Rehab/Acute Rehab due to: Ability to actively participate in intensive therapy 3 hours/day, 5 days/week or 900 minutes per week, Highly motivated to participate in therapy, Not atbaseline due to impaired ability to complete ADLs, Impaired ability to complete functional mobility, Likely to return to the community at discharge with support system in place, Requires greater than25% physical assistance with most mobility tasks, Requires greater than 25% physical assistance with most ADL tasks, Requires multiple therapy disciplines to address functional deficits, Patient and caregiver require specialized skilled training due to new level of function/diagnosis, Requires skilled therapy interventions to address neurological deficits PT Frequency during current admission: 3-5x/wk CARE PLAN Multi-Disciplinary Problems (from Physical Therapy) Active Problems Problem: PT Misc Start Date: 12/08/23 Goal Start Date Expected End Date End Date Patient to perform bed mobility with supervision. 12/08/23 12/15/23 -- progressing Goal Start Date Expected End Date End Date Patient to perform functional transfers with most appropriate device supervision. 12/08/23 12/15/23-- progressing Goal Start Date Expected End Date End Date Patient to ambulate 50 feet with most appropriate device supervision. 12/08/23 12/15/23 -- progressing Goal Start Date Expected End Date End Date Patient to perform standing balance activity x5 minutes with supervision and UE support as needed 12/08/23 12/15/23 -- progressing Goal Start Date Expected End Date End Date Patient to perform HEP for BLE strength and balance with at least 10 reps each. 12/08/23 12/15/23 -- progressing If this is the last note, please consider this the discharge summary. Cosigned by Torri Lopez, PT at 12/14/2023 2:34 PM RAG 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 * Kay Isidro COTA - 12/14/2023 9:47 AM CST Occupational Therapy NOTE / SESSION TYPE: DAILY PROGRESS / TREATMENT Patient's Name: Gunjan Gtz Jr. Age / Sex: 78 y.o. / male Room: [place] [address] : 1945 Date of service: 12/14/23 TIME IN: 946 TIME OUT: 1043 Patient Active Problem List Diagnosis Primary osteoarthritis [...] due to total right knee replacement (CMS/HCC) ([facility]) Hamstring tendinitis of right thigh Quadriceps weakness [...] Infrarenal abdominal aortic aneurysm (AAA) without rupture ([facility]) Acute CVA (cerebrovascular accident) ([facility]) Past Medical History: Diagnosis Date Acute gastric ulcer without hemorrhage or perforation Ulcer, gastric, acute - (Added by TW Conv) Alzheimer's dementia ([facility]) Asthma Back pain Cataract Closed fracture of left tibial plateau with delayed healing Closed fracture of right tibial plateau with delayed healing Closed nondisplaced osteochondral fracture of left patella with delayed healing Closed osteochondral fracture of patella, right, with delayed healing, subsequent encounter Clotting disorder ([facility]) ([facility]) Complex tear of medial meniscus of left knee as current injury Complex tear of medial meniscus of right knee as current injury Cramps of lower extremity Diverticulitis of colon Easy bruisability Fatigue Frequent urination Gastroesophageal reflux disease GERD Hypothyroidism Incontinence of urine Muscle weakness Osteoarthritis Osteoarthritis Peptic ulcer Peptic ulcer disease Seizures ([facility]) 1997 last seizure in 1997 SOB (shortness of breath) on exertion Subchondral insufficiency fracture of condyle of left femur (CMS/HCC) ([facility]) Vertigo Vision changes Visual disturbance hx of double vision, corrective lenses Past Surgical History: Procedure Laterality Date CATARACT EXTRACTION, BILATERAL Bilateral 2018 HERNIA REPAIR 1980 Hiatal Hernia repair KNEE ARTHROSCOPY Bilateral THYROIDECTOMY 12/27/2019 Precautions (including weight-bearing): Fall risk, Bed / chair alarm, and Seizure precautions Subjective: It feels good when you lift it all the way up. (Re PROM LUE) Therapy Pain: Pre-therapy pain level: 0 /10 Pain location: No pain - Location N/A Pain Intervention(s): No pain - Intervention N/A Post-therapy pain level: 0 /10 Pain scale reference: 0-10 SCALE Objective: Appearance: Presentation upon OT arrival: Patient Supine with head of bed elevated Presentation upon OT departure: Patient Sitting in bedside recliner Bed / Chair alarm in place and activated upon OT departure: Yes Call light within arms reach of patient at end of session: Yes Completed patient handoff and notified HYDRO STATION OPERATOR / RN, name: Neeraj, of patient's location and functional status upon completion of session VITAL SIGNS: Heart rate at rest: 60 BPM O2 saturations at rest: 97 % Oxygen LPM: room air Cognitive / Perceptual: A O X 3 Mobility / Transfers: Bed Mobility: supine to sit to EOB with MOD A X 1. Sits unsupported with FAIR balance for approx 5 min. Transfer(s): Sit to stand with MOD A as well as pivot from to recliner; assist to advance L leg. Increased time (Therapist followed with chair when PT ambulating) Living Skills / Other Activities: GROOMING TASKS (INCLUDING ORAL HYGIENE) LOCATION OF GROOMING TASKS: Sitting on EOB TASKS COMPLETED: wiping face and BRUSHING TEETH OVERALL ASSIST LEVEL: MIN ADDITIONAL DOCUMENTATION: set up needed and MIN for sitting balance. Pt received PROM and gentle stretching at shoulder to LUE. Scapular mobilization and joint compression to LUE. Pt tolerated well. Trace movement in L scapular elevation. No other AROM noted. Caregiver Present: Yes: spouse Education & Training Provided: Role of OT, ADL training, Bed mobility training, Functional transfer training, Balance training, Safety education, Cognitive re- orientation, and UE home exercise program Assessment: Activity tolerance / response to OT session: GOOD PARTICIPATION, GOOD MOTIVATION, and RECEPTIVE TO EDUCATION / TRAINING Progress towards goals: Please refer to care plan from this date for progress towards individual goals Plan: Therapy Plan: Rehab Potential (Prognosis): good OT Recommendations This Date: OT RECOMMENDATIONS: OT Recommendation: (S) Inpatient Rehab Facility Flow sheet updated and OT Consultation in Regards to Change in Discharge Recommendations: YES /NO: Yes Additional recommendation comments: Recommend Inpatient Rehab/Acute Rehab due to: Ability to actively participate in intensive therapy 3 hours/day, 5 days/week or 900 minutes per week, Highly motivated to participate in therapy, Not at baseline due to impaired ability to complete ADLs, Impaired ability to complete functional mobility, Likely to return to the community at discharge with support system in place, Patient and caregiver require specialized skilled training due to new level of function/diagnosis, Requires multiple therapy disciplines to address functional deficits Frequency of therapy:OT Frequency during current admission: 3-5x/wk If this is the last note, consider this the discharge summary ANGI Villa 12/14/23 Cosigned by Laquita Mukherjee OT at 12/14/2023 10:52 AM RAG 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 * Veras Austineunice Stockton, EDUCATIONAL DIAGNOSTICIAN - 12/13/2023 4:00 PM CST Hospitalist Progress Note Name: Gunjan Gtz Jr. Admission Date: 12/07/2023 Today's Date: 12/13/2023 Assessment: Subjective: Clinical course: Patient awake and alert, sitting in chair. Left hemiparesis persists. No further episodes of hematemesis. Requests diet to be changed back to regular consistency. Family at bedside. Review of Systems Constitutional: Negative for fever and malaise/fatigue. Eyes: Positive for blurred vision (Intermittent) and double vision (Intermittent). Respiratory: Negative for shortness of breath. Cardiovascular: Negative for chest pain. Gastrointestinal: Positive for constipation. Negative for diarrhea, nausea and vomiting. Neurological: Positive for sensory change, speech change and focal weakness. Negative for headaches. Objective: Vitals: 12/13/23 0400 12/13/23 0800 12/13/23 0803 12/13/23 1224 BP: 124/72 131/76 132/79 BP Location: Right arm Left arm Right arm Patient Position: Lying Lying Pulse: 66 72 72 78 Resp: 18 18 20 Temp: 36.7 ??C (98 ??F) 36.4 ??C (97.6 ??F) 37.1 ??C (98.7 ??F) TempSrc: Oral Oral Oral SpO2: 96% 94% 98% Weight: Height: Wt Readings from Last 3 Encounters: 12/09/23 106.1 kg (233 lb 12.8 oz) 12/08/23 103.4 kg (227 lb 15.3 oz) 11/12/23 99.8 kg (220 lb) I/O last 3 completed shifts: In: 240 [P.O.:240] Out: 200 [Urine:200] I/O this shift: In: 120 [P.O.:120] Out: - Scheduled Meds Current Facility-Administered Medications Medication Dose Route Frequency Provider Last Rate Last Admin acetaminophen (TYLENOL) tablet 650 mg 650 mg oral Q4H PRN Bernard Casillas MD 650 mg at 12/11/23 1344 Or acetaminophen (TYLENOL) 32 mg/mL oral liquid 650 mg 650 mg feeding tube Q4H PRN Bernard Casillas MD Or acetaminophen (TYLENOL) suppository 650 mg 650 mg rectal Q4H PRN Bernard Casillas MD albuterol HFA (PROVENTIL HFA,VENTOLIN HFA,PROAIR HFA) 90 mcg/actuation inhaler 2 puff 2 puff inhalation Q4H PRN (RT) Gaby Doyle MD aspirin chewable tablet 81 mg 81 mg oral Daily Zehng Veras, EDUCATIONAL DIAGNOSTICIAN 81 mg at 12/13/23 1036 Carrier Fluids for Secondary Infusion - 0.9% Sodium Chloride 30 mL intravenous PRN Gaby Doyle MD dextrose oral liquid liquid 15 g 15 g oral Q15 Min PRN Gaby Doyle MD Or dextrose (D10W) 10% bolus 250 mL 250 mL intravenous Q15 Min PRN Gaby Doyle MD donepeziL (ARICEPT) tablet 10 mg 10 mg oral Nightly Bernard Casillas MD 10 mg at 12/12/232035 [Held by Provider] enoxaparin (LOVENOX) syringe 40 mg 40 mg subcutaneous Daily- 2100 Gaby Doyle MD 40 mg at 12/10/23 204 fluticasone furoate-vilanteroL (BREO ELLIPTA) 100-25 mcg/dose inhaler 1 puff 1 puff inhalation Daily (RT) Gaby Doyle MD 1 puff at 12/13/23 0939 gabapentin (NEURONTIN) capsule 300 mg 300 mg oral TID Bernard Casillas MD 300 mg at 12/13/23 0821 glucagon injection 1 mg 1 mg intramuscular Q30 Min PRN Gaby Doyle MD hydrALAZINE (APRESOLINE) injection 10 mg 10 mg intravenous Q15 Min PRN Gaby Doyle MD levothyroxine (SYNTHROID) tablet 150 mcg 150 mcg oral Daily - 0600 Bernard Casillas MD 150 mcg at12/13/23 0620 ofloxacin (OCUFLOX) 0.3 % ophthalmic solution 1 drop 1 drop each eye Daily PRN Zheng Veras NP 1 drop at 12/12/23 1555 ondansetron (ZOFRAN) injection 4 mg 4 mg intravenous Q4H PRN Kristen Isabel NP 4 mg at 12/11/23 0142 oxyCODONE-acetaminophen (PERCOCET) 5-325 mg per tablet 1 tablet 1 tablet oral QID PRN Carlos Chaves MD 1 tablet at 12/13/23 1036 pantoprazole (PROTONIX) 40 mg in sodium chloride 0.9% 10 mL IV Syringe 40 mg intravenous BID Kristen Isabel NP 40 mg at 12/13/23 0821 ramelteon (ROZEREM) tablet 8 mg 8 mg oral Nightly PRN Bernard Casillas MD rosuvastatin (CRESTOR) tablet 40 mg 40 mg oral Daily Lianet Mckinney NP 40 mg at 12/13/23 0821 sodium chloride 0.9% flush 0.5-20 mL 0.5-20 mL intra-catheter Q8H AIMEE Gaby Doyle MD 10 mL at 12/13/23 0621 sodium chloride 0.9% flush 0.5-20 mL 0.5-20 mL intra-catheter PRN Gaby Doyle MD tamsulosin (FLOMAX) extended release capsule 0.4 mg 0.4 mg oral Nightly Bernard Casillas MD 0.4 mg at 12/12/232035 tiZANidine (ZANAFLEX) tablet 2 mg 2 mg oral TID PRN Dioni Orosco MD 2 mg at 12/08/23 1019 zolpidem (AMBIEN) tablet 5 mg 5 mg oral Nightly PRN Zheng Veras NP 5 mg at 12/12/232035 acetaminophen OR acetaminophen OR acetaminophen albuterol HFA sodium chloride 0.9% dextrose OR dextrose glucagon hydrALAZINE OR [DISCONTINUED] labetalol ofloxacin ondansetron oxyCODONE-acetaminophen ramelteon sodium chloride 0.9% tiZANidine zolpidem Physical Exam Constitutional: General: He is not in acute distress. Appearance: He is not toxic-appearing or diaphoretic. HENT: Head: Normocephalic and atraumatic. Eyes: General: No scleral icterus. Cardiovascular: Rate and Rhythm: Normal rate. Pulmonary: Effort: Pulmonary effort is normal. No respiratory distress. Abdominal: General: There is no distension. Palpations: Abdomen is soft. Musculoskeletal: Cervical back: Neck supple. Right lower leg: No edema. Left lower leg: No edema. Skin: General: Skin is warm and dry. Findings: No rash. Neurological: Mental Status: He is alert and oriented to person, place, and time. Comments: Left hemiparesis, facial droop, dysarthria. Lab Data Laboratory review: Chemistry CMP: Lab Results Component Value Date BUNSER 24 12/13/2023 CALCIUM 9.2 12/13/2023 CO2 24 12/13/2023 CHLORIDE 103 12/13/2023 CREATININE 1.22 12/13/2023 GLUCOSE 106 12/13/2023 POTASSIUM 4.4 12/13/2023 SODIUM 138 12/13/2023 , CBC: Lab Results Component Value Date WBC 9.4 12/13/2023 RBC 4.29 (L) 12/13/2023 HGB 13.8 12/13/2023 HCT 41.7 12/13/2023 MCV 97.2 (H) 12/13/2023 MCH 32.2 12/13/2023 MCHC 33.1 12/13/2023 RDWCV 13.0 12/13/2023 RDWSD 46.3 12/13/2023 MPV 10.8 12/13/2023 NRBCABS 0.00 12/13/2023 , Coags: Lab Results Component Value Date PT 12.7 12/11/2023 INR 1.11 12/11/2023 , Lipids: No results found for: CHOL , CHLPL , HDL , LDLCALC , TRIG , CHOLHDL , Cardiac Enzymes: No results found for: CKTOTAL , CKMB , CKMBINDEX , TROPONINT and POC Glucose: Lab Results Component Value Date GLUCOSE 106 12/13/2023 Assessment and Plan Principal Problem: Acute CVA (cerebrovascular accident) (HCC) Acute ischemic right cerebral stroke, POA - s/p TNK, post thrombolytic care on 12/07/23 with neuro checks -Aspirin on hold. Rosuvastatin. - TTE with bubble study showed no evidence of right to left shunt. - MRI brain 12/08/23 showing acute infarct posterior limb internal capsule right side. Underlying atrophy and small-vessel disease. No hemorrhagic changes identified. -PT/OT/REGISTERED MEDICAL ASSISTANT -Change diet to mechanical soft on 12/10, change back to regular consistency on 12/12 -Repeat CT negative for hemorrhage on 12/11. Resumed aspirin Possible GI bleed on 12/09-12/10, no further episodes of bleeding -Resume aspirin -Holding lovenox -FOB pending -Protonix IV HTN, POA - Under control -prn Hydralazine for SBP< 185 or DBP > 110 -monitor blood pressure closely and treat accordingly HLD, POA - continue with statin Asthma -patient not in exacerbation - resume prn albuterol AAA, POA - HTN control when post acute stroke - statin GERD/ PUD, POA - continue Protonix Hypothyroidism -levothyroxine Alzheimer, POA - continue home Donepezil Depression, POA - continue home Mirtazapine BPH -continue Flomax Insomnia, POA - replace home melatonin with ramelteon prn -home ambien prn OA -Resume home percocet Constipation -Start miralax, colace VTE Prophylaxis with enoxaparin on hold Pt will need continued inpatient management for the above medical issues. CONSULTS RADIOGRAPHY TECHNICIAN CONSULT IP CONSULT TO NUTRITION SERVICES IP CONSULT TO NEUROLOGY IP CONSULT TO SOCIAL WORK IP CONSULT TO SOCIAL WORK IP CONSULT TO SOCIAL WORK Zheng Veras NP Team Health Hospitalist 12/13/2023 4:00 PM 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 * Lianet Mckinney NP - 12/13/2023 1:50 PM CST Neurology Daily Progress Note Subjective Chief complaint of stroke. Interval History: 12/08/2023 - The patient is seen and examined laying in bed. He is drowsy but will wake up and follow commands. He has a left sided facial droop and weakness of his left arm and leg. Family at bedside. MRI brain and ECHO completed today. 12/09/2023 - The patient is seen and examined after working with therapy. 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 Heis able to move the left leg though weakness is present. He continues to have a left facial droop as well. The nurse noted that he had some trouble reading and looking out the window today and statesthat he does have double and blurry vision with distance at times. 12/10/2023 - The patient is seen and examined laying in bed. He is alert, orientated, and able to follow commands. He is unable to move the left arm except for at the shoulder but can move the left legthough weaker than the right. He states that his vision is a little worse today than it was yesterday. 12/13/2023 - The patient is seen and examined sitting up in the chair. Family is at bedside. He states he has intermittent blurry vision and feeling like his eye lids are heavy. Encouraged the patient to work as hard as he can with therapy now. Review of Systems Constitutional: Negative for chills, decreased appetite, diaphoresis and fever. HENT: Negative for congestion, hearing loss and hoarse voice. Eyes: Positive for blurred vision and double vision. Negative for visual halos. Cardiovascular: Negative for chest pain and leg swelling. Respiratory: Negative for cough and shortness of breath. Skin: Negative for rash. Gastrointestinal: Negative for bowel incontinence, nausea and vomiting. Genitourinary: Negative for bladder incontinence. Neurological: Positive for focal weakness. Negative for brief paralysis, difficulty with concentration, disturbances in coordination, excessive daytime sleepiness, dizziness, headaches, light-headedness, loss of balance, numbness, paresthesias, seizures, sensory change, tremors, vertigo and weakness. Psychiatric/Behavioral: Negative for altered mental status, hallucinations, memory loss and suicidal ideas. Current Facility-Administered Medications Medication Dose Route Frequency Provider Last Rate Last Admin acetaminophen (TYLENOL) tablet 650 mg 650 mg oral Q4H PRN Bernard Casillas MD 650 mg at 12/11/23 1344 Or acetaminophen (TYLENOL) 32 mg/mL oral liquid 650 mg 650 mg feeding tube Q4H PRN Bernard Casillas MD Or acetaminophen (TYLENOL) suppository 650 mg 650 mg rectal Q4H PRN Bernard Casillas MD albuterol HFA (PROVENTIL HFA,VENTOLIN HFA,PROAIR HFA) 90 mcg/actuation inhaler 2 puff 2 puff inhalation Q4H PRN (RT) Gaby Doyle MD aspirin chewable tablet 81 mg 81 mg oral Daily Zheng Veras NP 81 mg at 12/10/23 0847 Carrier Fluids for Secondary Infusion - 0.9% Sodium Chloride 30 mL intravenous PRN Gaby Doyle MD dextrose oral liquid liquid 15 g 15 g oral Q15 Min PRN Gaby Doyle MD Or dextrose (D10W) 10% bolus 250 mL 250 mL intravenous Q15 Min PRN Gaby Doyle MD donepeziL (ARICEPT) tablet 10 mg 10 mg oral Nightly Bernard Casillas MD 10 mg at 12/12/232035 [Held by Provider] enoxaparin (LOVENOX) syringe 40 mg 40 mg subcutaneous Daily- 2100 Gaby Doyle MD 40 mg at 12/10/23 204 fluticasone furoate-vilanteroL (BREO ELLIPTA) 100-25 mcg/dose inhaler 1 puff 1 puff inhalation Daily (RT) Gaby Doyle MD 1 puff at 12/12/23 0853 gabapentin (NEURONTIN) capsule 300 mg 300 mg oral TID Bernard Casillas MD 300 mg at 12/13/23 0821 glucagon injection 1 mg 1 mg intramuscular Q30 Min PRN Gaby Doyle MD hydrALAZINE (APRESOLINE) injection 10 mg 10 mg intravenous Q15 Min PRN Gaby Doyle MD levothyroxine (SYNTHROID) tablet 150 mcg 150 mcg oral Daily - 0600 Bernard Casillas MD 150 mcg at12/13/23 0620 ofloxacin (OCUFLOX) 0.3 % ophthalmic solution 1 drop 1 drop each eye Daily PRN Zheng Veras NP 1 drop at 12/12/23 1555 ondansetron (ZOFRAN) injection 4 mg 4 mg intravenous Q4H PRN Kristen Isabel NP 4 mg at 12/11/23 0142 oxyCODONE-acetaminophen (PERCOCET) 5-325 mg per tablet 1 tablet 1 tablet oral QID PRN Carlos Chaves MD 1 tablet at 12/12/23 0841 pantoprazole (PROTONIX) 40 mg in sodium chloride 0.9% 10 mL IV Syringe 40 mg intravenous BID Kristen Isabel NP 40 mg at 12/13/23 0821 ramelteon (ROZEREM) tablet 8 mg 8 mg oral Nightly PRN Bernard Casillas MD rosuvastatin (CRESTOR) tablet 40 mg 40 mg oral Daily Lianet Mckinney NP 40 mg at 12/13/23 0821 sodium chloride 0.9% flush 0.5-20 mL 0.5-20 mL intra-catheter Q8H AIMEE Gaby Doyle MD 10 mL at 12/13/23 0621 sodium chloride 0.9% flush 0.5-20 mL 0.5-20 mL intra-catheter PRN Gaby Doyle MD tamsulosin (FLOMAX) extended release capsule 0.4 mg 0.4 mg oral Nightly Bernard Casillas MD 0.4 mg at 12/12/23 2036 tiZANidine (ZANAFLEX) tablet 2 mg 2 mg oral TID PRN Dioni Orosco MD 2 mg at 12/08/23 1019 zolpidem (AMBIEN) tablet 5 mg 5 mg oral Nightly PRN Zheng Veras NP 5 mg at 036 Objective Vitals: 24hr Min/Max: Temp Min: 36.4 ??C (97.6 ??F) Max: 37 ??C (98.6 ??F) Pulse Min: 65 Max: 72 BP Min: 123/53 Max: 141/83 Resp Min: 18 Max: 20 SpO2 Min: 94 % Max: 99 % Most Recent: Vitals: 12/13/23 1605 BP: 137/69 Pulse: 62 Resp: 17 Temp: 36.8 ??C (98.3 ??F) SpO2: 96% Physical Exam Vitals and nursing note reviewed. HENT: Head: Normocephalic and atraumatic. Eyes: Extraocular Movements: Extraocular movements intact and EOM normal. Pupils: Pupils are equal, round, and reactive to light. Cardiovascular: Rate and Rhythm: Normal rate. Pulmonary: Effort: Pulmonary effort is normal. Abdominal: Palpations: Abdomen is soft. Musculoskeletal: General: Normal range of motion. Cervical back: Normal range of motion. Right lower leg: No edema. Left lower leg: No edema. Skin: General: Skin is warm. Findings: No rash. Neurological: Mental Status: He is alert and oriented to person, place, and time. Coordination: Geccpb-Eicp-Eoqjjz Test abnormal. Psychiatric: Mood and Affect: Mood normal. Speech: Speech normal. Behavior: Behavior normal. Neurologic Exam Mental Status Oriented to person, place, and time. Oriented to person. Oriented to place. Oriented to time. Oriented to year and month. Attention: normal. Concentration: normal. Speech: speech is normal Level of consciousness: alert Knowledge: good. Normal comprehension. Cranial Nerves CN II Visual white full to confrontation. CN III, IV, Pupils are equal, round, and reactive to light. Extraocular motions are normal. Right pupil: Shape: regular. Reactivity: brisk (with distance). Left pupil: Shape: regular. Reactivity: brisk. CN III: no CN III palsy CN : no CN palsy Nystagmus: none Diplopia: bilateral CN V Facial sensation intact. CN VII Right facial weakness: none Left facial weakness: central CN VIII CN VIII normal. Hearing: intact CN IX, X CN IX normal. CN X normal. CN XI CN XI normal. CN XII CN XII normal. Motor Exam Muscle bulk: normal Overall muscle tone: normal Strength Strength 5/5 except as noted. There is a left hemiparesis with a power of 4/5 and there is a drift of the left leg. The patient is able to move the left shoulder but cannot lift the arm against gravity. Sensory Exam Light touch normal. Gait, Coordination, and Reflexes Coordination Finger to nose coordination: abnormal Tremor Resting tremor: absent Intention tremor: absent Reflexes Right plantar: normal Left plantar: normal Right ankle clonus: absent Left ankle clonus: absent I/O last 2 completed shifts: In: 240 [P.O.:240] Out: - No intake/output data recorded. Lab/Radiology/Diagnostic Review: 12/08/2023 Lipid panel LDL 110 12/08/2023 CT head shows cerebral atrophy and small vessel disease, in keeping with the patient's age. No bleed or mass. 12/08/2023 MRI brain shows acute infarct posterior limb internal capsule right side. Underlying atrophy and small vessel disease. No hemorrhagic changes identified. 12/08/2023 CT head shows no definitive acute intracranial findings. Chronic microvascular ischemic changes and volume loss. 12/08/2023 ECHO shows no thrombus or vegetation. EF is measured at 62%. 12/09/2023 CBC unremarkable 12/09/2023 BMP unremarkable 12/10/2023 CBC Hgb 12.8, Hct 38.8 12/10/2023 BMP unremarkable 12/10/2023 ECHO shows no right to left shunt, thrombus, or vegetation. EF is measured at 62%. New Investigations: 12/13/2023 CBC unremarkable 12/13/2023 BMP unremarkable 12/12/2023 CT head shows subacute infarct internal capsule and lentiform nucleus right side corresponding to the MRI findings. No acute findings. Atrophy and small vessel disease. ASSESSMENTPLAN: Acute right cerebral infarction status post thrombolytic therapy. His stroke risk factors include age as well as dyslipidemia. He will be on the stroke and tPA pathway. Recommendations: Continue Aspirin 81 mg daily and Rosuvastatin 40 mg daily for goal LDL less than 70. Continue Supportive care. Continue to control blood pressure for a goal no lower than 130/80 and no higher than 185/110. Continue aggressive PT/OT/ST. We will be signing off at this time. Please call our service back with any new neurological questions or concerns. Lianet Mckinney NP Cosigned by Nayan Mahajan II, MD at 12/14/2023 8:56 AM RAG 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 * Paresh Prieto SLP - 12/13/2023 1:26 PM CST SPEECH LANGUAGE PATHOLOGY PROGRESS NOTE Patient's Name: Gunjan Gtz Jr. : 1945 Age: 78 y.o. Time In: 13:05 Time Out: 13:33 Patient Active Problem List Diagnosis Primary osteoarthritis [...] Skin lesion of breast Edema Intermittent claudication ([facility]) Iron deficiency anemia Peripheral vascular disease ([facility]) Pain due to total right knee replacement (CMS/HCC) ([facility]) Hamstring tendinitis of right thigh Quadriceps weakness Idiopathic peripheral neuropathy Abnormality of gait and mobility Hx of total knee replacement, right Neuropathy (CMS/[facility]) 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 Biceps tendinitis of left upper extremity Tear of left glenoid labrum Coffee ground emesis Upper GI bleed Acquired hypothyroidism Acute blood loss anemia Lung nodule Nocturnal cough Hiatal hernia Infrarenal abdominal aortic aneurysm (AAA) without rupture ([facility]) Acute CVA (cerebrovascular accident) ([facility]) Past Medical History: Diagnosis Date Acute gastric ulcer without hemorrhage or perforation Ulcer, gastric, acute - (Added by TW Conv) Alzheimer's dementia ([facility]) Asthma Back pain Cataract Closed fracture of left tibial plateau with delayed healing Closed fracture of right tibial plateau with delayed healing Closed nondisplaced osteochondral fracture of left patella with delayed healing Closed osteochondral fracture of patella, right, with delayed healing, subsequent encounter Clotting disorder ([facility]) ([facility]) Complex tear of medial meniscus of left knee as current injury Complex tear of medial meniscus of right knee as current injury Cramps of lower extremity Diverticulitis of colon Easy bruisability Fatigue Frequent urination Gastroesophageal reflux disease GERD Hypothyroidism Incontinence of urine Muscle weakness Osteoarthritis Osteoarthritis Peptic ulcer Peptic ulcer disease Seizures ([facility]) 1997 last seizure in 1997 SOB (shortness of breath) on exertion Subchondral insufficiency fracture of condyle of left femur ([facility]) ([facility]) Vertigo Vision changes Visual disturbance hx of double vision, corrective lenses Past Surgical History: Procedure Laterality Date CATARACT EXTRACTION, BILATERAL Bilateral 2018 HERNIA REPAIR 1979 Hiatal Hernia repair KNEE ARTHROSCOPY Bilateral THYROIDECTOMY 12/27/2019 SUBJECTIVE MENTAL STATUS: Patient awake, sitting up in chair. Reports improvement with double vision. PAIN: Pre Therapy Pain Level: 0/10 Pain Location: N/A Pain Intervention: N/A Post Therapy Pain Level/Response to Intervention: 0/10 OBJECTIVE PRECAUTIONS: Fall, Seizure SWALLOWING: Swallow assessed by REGISTERED MEDICAL ASSISTANT. Regular consistency diet/thin liquids recommended. Patient's reports patient having difficulty with food getting stuck on left side of mouth. EDUCATIONAL DIAGNOSTICIAN changed dietto mechanical soft/thin liquids. COGNITION: Cognitive deficits in short term memory and insight. COMMUNICATION: Mild dysarthric speech. TREATMENT ACTIVITIES: Recall daily activities/recent events with 100% accuracy Oral motor exercises 10xs each Oriented x4 EDUCATION: PATIENT/FAMILY EDUCATION: Reviewed speech therapy goals and progress Response to Education: Understanding verbalized ASSESSMENT Activity Tolerance/Response to S.T.: Tolerated speech therapy session with no complaints Barriers to learning: Cognition, Vision Current status: Patient with mild/moderate cognitive deficits. Drooling from left side of oral cavity noted. Introduced oral motor exercises. Progress toward goals: Patient continues to progress toward previously set goals which remain appropriate at this time. PLAN Multi-Disciplinary Problems (from Speech Therapy) Active Problems Problem: Cognitive/Linguistics Start Date: 12/09/23 Goal Start Date Expected End Date End Date STG - Patient will recall new information 12/09/23 12/16/23 -- Goal Details: With 80% accuracy Goal Start Date Expected End Date End Date STG - Patient will participate in further assessment of cognitive-linguistic skills 12/09/23 12/16/23 -- Problem: Communication/Motor Speech Start Date: 12/09/23 Goal Start Date Expected End Date End Date STG - Patient will participate in oral-motor exercises to improve strength 12/09/23 12/16/23 -- Frequency of Treatment: OD, 5xs weekly Recommendations: Recommend acute rehab pending qualifying criteria. If this is the last note, consider this the discharge summary. 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 * Heron Amos - 12/13/2023 11:06 AM CST NUTRITION ASSESSMENT Nutrition Status: Patient appears adequately nourished at this time. REASON FOR ASSESSMENT: Consult/Referral - Stroke Protocol Encounter Date: 12/13/23 11:22 AM Admission Date: 12/07/2023 LOS: 6 days HPI: Patient is a 78 y.o. male who presented to the emergency room December 07, 2023 at 1:02 p.m. for anacute stroke. The patient reported sudden onset of difficulty with speech left arm weakness and left leg weakness. The last known well was 10:00 a.m. today. He was on the way to see ortho when he noted weakness of the left hand and arm when he tried to open the car door with his left hand because his left arm and hand were weak. He had difficulty getting up out of the car because of weakness of the left leg. He could not get himself up so he set himself back in the car and called the orthopedicsurgeon service, and 911 was called. He was brought to the emergency room, tele stroke was consulted and the patient was given tenecteplase at 1330 and neurology consultation is requested. CT of the head CTA of the head and neck showed no acute ischemia or large vessel occlusion. No significant stenosis of the carotid vessels. He came to ICU for post thrombolytic care. Reports pain in right jaw new since admission. Denies recent illness/ sick contacts. Is aware of his dysarthria. Reports he had MRs before without issue. 12/08: Ordering Ensure High PRO bid for additional calorie/protein intake. 12/12: Modift ONS Ensure high protein to vanilla flavor only. PO intakes averaging 64%. Malnutrition assessment complete. Objective Past Medical History: Diagnosis Date Acute gastric ulcer without hemorrhage or perforation Ulcer, gastric, acute - (Added by TW Conv) Alzheimer's dementia ([facility]) Asthma Back pain Cataract Closed fracture of left tibial plateau with delayed healing Closed fracture of right tibial plateau with delayed healing Closed nondisplaced osteochondral fracture of left patella with delayed healing Closed osteochondral fracture of patella, right, with delayed healing, subsequent encounter Clotting disorder (CMS/HCC) ([facility]) Complex tear of medial meniscus of left knee as current injury Complex tear of medial meniscus of right knee as current injury Cramps of lower extremity Diverticulitis of colon Easy bruisability Fatigue Frequent urination Gastroesophageal reflux disease GERD Hypothyroidism Incontinence of urine Muscle weakness Osteoarthritis Osteoarthritis Peptic ulcer Peptic ulcer disease Seizures ([facility]) 1997 last seizure in 1997 SOB (shortness of breath) on exertion Subchondral insufficiency fracture of condyle of left femur (CMS/HCC) ([facility]) Vertigo Vision changes Visual disturbance hx [...] Never Substance and Sexual Activity Drug use: No Sexual activity: Defer Alcohol Use: Not At Risk (06/29/2022) AUDIT-C Frequency of Alcohol Consumption: Monthly or less Average Number of Drinks: 3 or 4 Frequency of Binge Drinking: Never MEDICATION/LAB REVIEW: Scheduled Meds: aspirin, 81 mg, oral, Daily donepeziL, 10 mg, oral, Nightly [Held by Provider] enoxaparin, 40 mg, subcutaneous, Daily-2100 fluticasone furoate-vilanteroL, 1 puff, inhalation, Daily (RT) gabapentin, 300 mg, oral, TID levothyroxine, 150 mcg, oral, Daily - 0600 pantoprazole, 40 mg, intravenous, BID rosuvastatin, 40 mg, oral, Daily sodium chloride 0.9%, 0.5-20 mL, intra-catheter, Q8H AIMEE tamsulosin, 0.4 mg, oral, Nightly Continuous Infusions: PRN Meds: acetaminophen OR acetaminophen OR acetaminophen albuterol HFA sodium chloride 0.9% dextrose OR dextrose glucagon hydrALAZINE OR [DISCONTINUED] labetalol ofloxacin ondansetron oxyCODONE-acetaminophen ramelteon sodium chloride 0.9% tiZANidine zolpidem Recent Labs Lab Units 12/13/23 0252 12/12/23 0420 12/11/23 0547 12/10/23 0254 12/09/23 0619 12/07/23 2045 SODIUM mmol/L 138 138 138 140 < > 137 POTASSIUM PLASMA mmol/L 4.4 4.8 4.5 4.2 < > 4.1 CHLORIDE mmol/L 103 105 104 106 < > 103 CO2 mmol/L 24 24 25 25 < > 27 BUN SERUM mg/dL 24 18 19 17 < > 16 CREATININE mg/dL 1.22 1.14 1.04 1.12 < > 1.39* [id number] mL/min/1.73 m2 60 65 73 67 < > 52 CALCIUM mg/dL 9.2 9.0 9.1 8.8 < > 9.0 ALBUMIN g/dL -- -- -- -- -- 3.6 PHOSPHORUS PLASMA mg/dL -- 3.2 3.4 3.2 < > 3.1 MAGNESIUM mg/dL -- 1.8 1.9 1.9 < > 2.0 < > = values in this interval not displayed. Recent Labs Lab Units 12/13/23 0252 12/12/23 0420 12/11/23 0547 12/10/23 0254 12/09/23 0619 12/08/23 1635 12/08/23 0726 GLUCOSE mg/dL 106 105 116 100 117 -- -- POC GLUCOSE MONITOR mg/dL -- -- -- -- -- 109 105 No results found for: ALT , AST , BILIRUBIN , ALKPHOS , LIPASE Lab Results Component Value Date HGBA1C 5.6 12/07/2023 HDL 55 12/08/2023 LDLCALC 110 12/08/2023 CHOL 182 12/08/2023 TRIG 86 12/08/2023 NURSING ASSESSMENT: Bowel Sounds (All Quadrants): Active Emesis Assessment Emesis Color/Appearance: Coffee ground, Black, Brown Hood Scale Score: 17 Skin Integrity: Rash Vital Signs BP: 131/76 Temp: 36.4 ??C (97.6 ??F) Pulse: 72 Resp: 18 SpO2: 94 % Intake/Output Summary (Last 24 hours) at 12/13/2023 1122 Last data filed at 12/12/2023 1845 Gross per 24 hour Intake 120 ml Output -- Net 120 ml Adult Malnutrition Scoring Tool (MST) What diet do you follow at home?: Regular Have You Recently Lost Weight Without Trying?: [...] to get more.: Never true Anthropometrics Weight: 106.1 kg (233 lb 12.8 oz) Admission Weight : 103.4 kg Weight Change: 2.65 kg (5.84 lbs) IBW/kg (Calculated) : 78 kg Height: 180.3 cm (5' 10.98 ) Weight in (lb) to have BMI = 25: 178.8 BMI (Calculated): 32.6 Wt Readings from Last 10 Encounters: 12/09/23 106.1 kg (233 lb 12.8 oz) 12/08/23 103.4 kg (227 lb 15.3 oz) 11/12/23 99.8 kg (220 lb) 11/03/23 99.8 kg (220 lb) 10/10/23 100.9 kg (222 lb 8 oz) 05/18/23 104.3 kg (230 lb) 05/04/23 104.3 kg (230 lb) 03/23/23 105.2 kg (232 lb) 12/03/22 105 kg (231 lb 7.7 oz) 11/05/22 103.7 kg (228 lb 9.9 oz) ESTIMATED NEEDS: Total Energy Needs: 2213.75 kcal Total Energy Needs + Fever Factor: 2213.75 Equation Chosen to Use by RD: [facility] Activity Factor: 1.25 Weight Used for Equation Calculations (RD Determined): 103.4 kg (227 lb 15.3 oz) . Total Protein Estimated Needs (gm): 124.1 Protein Needs Based on g/k.2 Type of Weight Used for Estimated Protein : Current Total Fluid Estimated Needs: 2,213.75 mL/day Fluid Needs Based on : 1 ml/kcal Type of Weight Used for Estimated Fluid Needs: Current Dietary Orders (From admission, onward) Start Ordered 12/13/23 1700 Oral Nutrition Supplements (CH) Select Supplement: Ensure High Protein - Vanilla WithBreakfast and Dinner Question: () Select Supplement: Answer: Ensure High Protein - Vanilla 12/13/23 1120 12/11/23 1320 Adult Diet Modified Consistency; Mechanical Soft; Low Fat, Low Chol, Low Na Diet effective now Question Answer Comment () Diet type Modified Consistency Modified Consistency: Mechanical Soft Other Restriction(s): Low Fat, Low Chol, Low Na 12/11/23 1319 Allergies: Reviewed. IMPRESSION: Pt visited today for follow up as per protocol. Pt presents laying in bed, sleepy after OT visit. Pt states he has a poor appetite but is eating alright, he dislikes taste of food and endorses some taste changes. PO intakes averaging 64%. Pt tolerates ONS Ensure high protein well but prefers vanilla flavor only, RD modifying ONS order to vanilla flavor. Pt denies N/V/C/D but has not had a BM thisadmission. Updated Wt shows non significant Wt changes since admit. RD performed limited NFPE that showed little to no muscle or sub-q wasting. RD encouraged Pt to continue PO intakes as able. Labs and medications reviewed. RD following PO intakes, ONS tolerance, and plan of care. ASPEN MALNUTRITION ASSESSMENT: Date of completion: 12/13/223 NUTRITION FOCUSED PHYSICAL EXAM: Completed. Subcutaneous Fat Loss Orbital Region - Surrounding the Eye: Slightly bulged fat pads Cheek Region - Buccal Fat: Full, round filled-out cheeks Upper Arm Region - Triceps/Biceps: Some depth pinch but not ample Muscle Loss Sabianism Region - Temporalis Muscle: Slight depression Clavicle Bone Region - Pectoralis Major, Deltoid, Trapezius Muscles: Not visible in male, visible but not prominent in female Clavicle and Acromion Bone Region - Deltoid Muscle: Rounded, curves at arm/shoulder/neck Scapular Bone Region - Trapezius, Supraspinus, Infraspinus Muscles: Bones not prominent NUTRITION DIAGNOSIS: Nutrition Diagnosis 1: Increased nutrient needs (protein) Related to: Acute illness/injury Evidenced by: Other (comment) (acute CVA) INTERVENTION(S): Summary: Follow up per policy, Assess for nutrition changes, Communication, Modify supplement, Encouragement, NFPE GOAL(S): Adequate nutrition to meet estimated needs by next assessment, Oral intake to meet 75% estimated nutritional needs by next assessment, Tolerance of medical food supplement by next assessment MONITORING/EVALUATION: Appetite, Diet-related questions, I/O, Labs, Plan of care, PO intake, Stool patterns, Supplement tolerance Diet Instructions Recommend to eat a generally healthy diet that includes a variety of fruits, vegetables, whole-grain breads, low-fat dairy products, beans, lean meats, and fish. Avoid saturated and trans fats and limit sodium to less than 2,300 mg per day. Avoid foods like desserts, fast food, fried/breaded foods,deli meats, sausage, gutierrez, and gravies/sauces. Call [phone] to speak with a dietitian about any diet related concerns. Recommend to follow up with outpatient nutrition counseling, ask your doctor for a referral and call [phone] to make an appointment. Nutrition Follow-Up : 12/20/23 Heron Amos MS, RD, LD 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 * Wednesday, ANGI Fuller - 12/13/2023 10:12 AM CST Occupational Therapy NOTE / SESSION TYPE: DAILY PROGRESS / TREATMENT Patient's Name: Gunjan Gtz Jr. Age / Sex: 78 y.o. / male Room: [place] [address] : 1945 Date of service: 12/13/23 TIME IN: 905 TIME OUT: 956 Patient Active Problem List Diagnosis Primary osteoarthritis [...] - (Added by TW Conv) Alzheimer's dementia ([facility]) Asthma Back pain Cataract Closed fracture of left tibial plateau with delayed healing Closed fracture of right tibial plateau with delayed healing Closed nondisplaced osteochondral fracture of left patella with delayed healing Closed osteochondral fracture of patella, right, with delayed healing, subsequent encounter Clotting disorder (CMS/[facility]) ([facility]) Complex tear of medial meniscus of left knee as current injury Complex tear of medial meniscus of right knee as current injury Cramps of lower extremity Diverticulitis of colon Easy bruisability Fatigue Frequent urination Gastroesophageal reflux disease GERD Hypothyroidism Incontinence of urine Muscle weakness Osteoarthritis Osteoarthritis Peptic ulcer Peptic ulcer disease Seizures ([facility]) 1997 last seizure in 1997 SOB (shortness of breath) on exertion Subchondral insufficiency fracture of condyle of left femur (CMS/[facility]) ([facility]) Vertigo Vision changes Visual disturbance hx of double vision, corrective lenses Past Surgical History: Procedure Laterality Date CATARACT EXTRACTION, BILATERAL Bilateral 2018 HERNIA REPAIR 1979 Hiatal Hernia repair KNEE ARTHROSCOPY Bilateral THYROIDECTOMY 12/27/2019 Precautions (including weight-bearing): Fall risk and Bed / chair alarm Subjective: Pt reported pain on left knee Therapy Pain: Pre-therapy pain level: 7 /10 Pain location: No pain - Location N/A Pain Intervention(s): Pain medication administered prior to session Post-therapy pain level: 7 /10 Pain scale reference: 0-10 SCALE Objective: Appearance: Presentation upon OT arrival: Patient Supine with head of bed elevated Presentation upon OT departure: Patient Sitting in bedside recliner Bed / Chair alarm in place and activated upon OT departure: yes Call light within arms reach of patient at end of session: Yes Completed patient handoff and notified HYDRO STATION OPERATOR / RN, name: Amie , of patient's location and functional status upon completion of session VITAL SIGNS: Heart rate at rest: 66 BPM Heart rate with activity: 72 BPM O2 saturations at rest: 96 % O2 saturations with activity: 94 % Oxygen LPM: room air Cognitive / Perceptual: A % O x 4 Mobility / Transfers: Bed Mobility: supine <> sit at EOB requiring max assist. With min vc's for left side attention. Transfer(s): sit<> stand at EOB/ bed side recliner requiring mod assist. With use of rasheed walker With min vc's for sequencing. . pt performed stand povit transfer <?> at EOB/ bed side recliner requiring max assist. Living Skills / Other Activities: GROOMING TASKS (INCLUDING ORAL HYGIENE) LOCATION OF GROOMING TASKS: Sitting in bedside chair / recliner TASKS COMPLETED: wash fac e , BRUSHING TEETH, and WASHING HANDS OVERALL ASSIST LEVEL: PARTIAL / MODERATE ASSISTANCE: LESS THAN HALF (1% - 49%) ADDITIONAL DOCUMENTATION: Pt performed grooming task while standing at bed side recliner required min aisst for container management with compensatory one handed technique due to L side weakness. UE dressing: Patient completed upper body dressing of Hospital gown while Sitting in bedside chair / recliner with overall Minimal assistance. Patient required assistance for pulling around back, verbal cue(s), and item retrieval. PUTTING ON / TAKING OFF FOOTWEAR LOCATION OF PUTTING ON / TAKING OFF FOOTWEAR: Sitting in bedside chair / recliner TASKS COMPLETED: Sock(s) OVERALL ASSIST LEVEL: PARTIAL / MODERATE ASSISTANCE: LESS THAN HALF (1% - 49%) ADDITIONAL DOCUMENTATION: -Pt montrell /doff socks while seated at bed side recliner with use optic fibre drawer requiring mod assist for management over right heel and max assist for fully threading on to left foot. Caregiver Present: No Education & Training Provided: Role of OT, OT plan of care, ADL training, Bed mobility training, Functional transfer training, and Safety education Assessment: Activity tolerance / response to OT session: GOOD PARTICIPATION, GOOD MOTIVATION, and RECEPTIVE TO EDUCATION / TRAINING Progress towards goals: Please refer to care plan from this date for progress towards individual goals Plan: Therapy Plan: Rehab Potential (Prognosis): good OT Recommendations This Date: OT RECOMMENDATIONS: OT Recommendation: (S) Inpatient Rehab Facility Flow sheet updated and OT Consultation in Regards to Change in Discharge Recommendations: YES /NO: No Additional recommendation comments: Recommend Inpatient Rehab/Acute Rehab due to: Ability to actively participate in intensive therapy 3 hours/day, 5 days/week or 900 minutes per week, Highly motivated to participate in therapy, Not at baseline due to impaired ability to complete ADLs, Impaired ability to complete functional mobility, Likely to return to the community at discharge with support system in place, Patient and caregiver require specialized skilled training due to new level of function/diagnosis, Requires multiple therapy disciplines to address functional deficits Frequency of therapy:OT Frequency during current admission: 3-5x/wk If this is the last note, consider this the discharge summary Sosena WednesdayANGI 12/13/23 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 * Tyrel Vasquez, MARQUEZ - 12/13/2023 9:06 AM CST Physical Therapy PT PROGRESS NOTE PATIENT'S NAME:Gunjan Gtz Jr. :1945 AGE:78 y.o. ROOM:[place] [address] Past Medical History: Diagnosis Date Acute gastric [...] delayed healing, subsequent encounter Clotting disorder (CMS/HCC) ([facility]) Complex tear of medial meniscus [...] Infrarenal abdominal aortic aneurysm (AAA) without rupture ([facility]) Acute CVA (cerebrovascular accident) ([facility]) TIME IN: 910 TIME OUT: 955 SUBJECTIVE Yes MENTAL STATUS/ORIENTATION: Alert and oriented x4 PAIN: Pre-therapy pain level: 04/19 Pain location: R knee Pain intervention: mobility and repositioning Post-therapy pain level/response to intervention: 04/19 OBJECTIVE PRECAUTIONS: fall and seizure APPEARANCE/POSTURE: Pt supine w/ HOB elevated, on room air, in no distress, call light in reach, and pt pleasantly agreeable to therapy MOBILITY DOCUMENTATION: Bed Mobility- Max assist of 1 for supine to sit w/ HOB elevated. Max assist of 1 for sit to supine using rasheed technique for LE management Transfers: Mod assist of 1 for sit to and from stands w/ tactile cues for R UE hand placement on surface vs rasheed aide Max assist of 1 for bed to chair via stand pivot Gait: Pt took 2-3 steps forward direction using rasheed aide (max assist of 1) + chair follow for safety. L knee required blocking due to buckling in stance phase. Max assist required for L foot during swing phase. Tactile cues for device and LE sequencing/weight shifting. TREATMENT: Static standing with rasheed aide- Max assist of 1 LE seated exercises x 10 reps. Max for L LE and SPV for R LE APPEARANCE/POSTURE (end of session): appearance otherwise unchanged from PT arrival in room EDUCATION:bed mobility , therapeutic activity, therapeutic exercises , functional transfer training, strengthening, endurance training, safety , durable medical equipment education, positioning, and range of motion RESPONSE TO EDUCATION: needs reinforcement ASSESSMENT Activity tolerance/response to P.T.: Pt displayed difficulty taking steps w/ rasheed aide this date. No adverse effects w/ exercises. Pt very motivated Barriers to learning: Language and Physical Barriers to discharge: Limited family support, Limited safety awareness, Communication deficit, Decreased endurance, Decreased proprioception, Upper extremity weakness, Lower extremity weakness, Longstanding deficits, Medical complications, and Stairs at home Patient continues progressing toward previously set goals which remain appropriate at this time. PLAN PT Discharge Recommendations this date: PT Recommendation/Plan: Inpatient Rehab Facility Patient at high risk for: Falls, Readmission, Injury due to decreased ability to care for self, Injury due to reduced functional status, Injury due to impaired cognition, Injury due to balance deficits, Injury at home as patient has not returned to prior level of function, Developing impaired skin integrity, Cognitive decline due to decreased social participation, Prolonged dependence for self care tasks, Improper use of DME Recommend Inpatient Rehab/Acute Rehab due to: Ability to actively participate in intensive therapy 3 hours/day, 5 days/week or 900 minutes per week, Highly motivated to participate in therapy, Not atbaseline due to impaired ability to complete ADLs, Impaired ability to complete functional mobility, Likely to return to the community at discharge with support system in place, Requires greater than25% physical assistance with most mobility tasks, Requires greater than 25% physical assistance with most ADL tasks, Requires multiple therapy disciplines to address functional deficits, Patient and caregiver require specialized skilled training due to new level of function/diagnosis, Requires skilled therapy interventions to address neurological deficits PT Frequency during current admission: 3-5x/wk CARE PLAN Multi-Disciplinary Problems (from Physical Therapy) Active Problems Problem: PT Misc Start Date: 12/08/23 Goal Start Date Expected End Date End Date Patient to perform bed mobility with supervision. Progressing 12/08/23 12/15/23 -- Goal Start Date Expected End Date End Date Patient to perform functional transfers with most appropriate device supervision. Progressing 12/08/23 12/15/23 -- Goal Start Date Expected End Date End Date Patient to ambulate 50 feet with most appropriate device supervision. Progressing 12/08/23 12/15/23 -- Goal Start Date Expected End Date End Date Patient to perform standing balance activity x5 minutes with supervision and UE support as needed Progressing 12/08/23 12/15/23 -- Goal Start Date Expected End Date End Date Patient to perform HEP for BLE strength and balance with at least 10 reps each. Progressing 12/08/23 12/15/23 -- If this is the last note, please consider this the discharge summary. Cosigned by Torri Lopez, PT at 12/13/2023 2:57 PM RAG 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 * Zheng Veras, EDUCATIONAL DIAGNOSTICIAN - 12/12/2023 1:56 PM CST Hospitalist Progress Note Name: Gunjan Gtz Jr. Admission Date: 12/07/2023 Today's Date: 12/12/2023 Assessment: Subjective: Clinical course: Patient awake and alert, sitting in chair. Left-sided symptoms persist. Patient complains of eyelids feeling heavy, which is new today. Currently denies blurred vision, double vision. He reports history of dry eyes and uses ofloxacin eye drops as needed at home. No further episodes of emesis. and son at bedside. Contacted neurology. Review of Systems Constitutional: Negative for chills, fever and malaise/fatigue. Eyes: Positive for blurred vision (intermittent) and double vision (Intermittent). Respiratory: Negative for shortness of breath. Cardiovascular: Negative for chest pain. Gastrointestinal: Negative for diarrhea, nausea and vomiting. Neurological: Positive for sensory change, speech change and focal weakness. Negative for headaches. Objective: Vitals: 12/12/23 0400 12/12/23 0811 12/12/23 0853 12/12/23 1231 BP: 113/76 131/79 123/53 BP Location: Right arm Left arm Left arm Patient Position: Lying Lying Sitting Pulse: 61 67 72 Resp: 18 18 18 Temp: 36.6 ??C (97.9 ??F) 36.8 ??C (98.3 ??F) 36.7 ??C (98 ??F) TempSrc: Oral Oral Oral SpO2: 97% 97% 97% 96% Weight: Height: Wt Readings from Last 3 Encounters: 12/09/23 106.1 kg (233 lb 12.8 oz) 12/08/23 103.4 kg (227 lb 15.3 oz) 11/12/23 99.8 kg (220 lb) I/O last 3 completed shifts: In: 320 [P.O.:320] Out: 200 [Urine:200] No intake/output data recorded. Scheduled Meds Current Facility-Administered Medications Medication Dose Route Frequency Provider Last Rate Last Admin acetaminophen (TYLENOL) tablet 650 mg 650 mg oral Q4H PRN Bernard Casillas MD 650 mg at 12/11/23 1344 Or acetaminophen (TYLENOL) 32 mg/mL oral liquid 650 mg 650 mg feeding tube Q4H PRN Bernard Casillas MD Or acetaminophen (TYLENOL) suppository 650 mg 650 mg rectal Q4H PRN Bernard Casillas MD albuterol HFA (PROVENTIL HFA,VENTOLIN HFA,PROAIR HFA) 90 mcg/actuation inhaler 2 puff 2 puff inhalation Q4H PRN (RT) Gaby Doyle MD [Held by Provider] aspirin chewable tablet 81 mg 81 mg oral Daily Gaby Doyle MD 81 mg at 12/10/23 0847 Carrier Fluids for Secondary Infusion - 0.9% Sodium Chloride 30 mL intravenous PRN Gaby Doyle MD dextrose oral liquid liquid 15 g 15 g oral Q15 Min PRN Gaby Doyle MD Or dextrose (D10W) 10% bolus 250 mL 250 mL intravenous Q15 Min PRN Gaby Doyle MD donepeziL (ARICEPT) tablet 10 mg 10 mg oral Nightly Bernard Casillas MD 10 mg at 12/11/232031 [Held by Provider] enoxaparin (LOVENOX) syringe 40 mg 40 mg subcutaneous Daily- 2100 Gaby Doyle MD 40 mg at 12/10/232047 fluticasone furoate-vilanteroL (BREO ELLIPTA) 100-25 mcg/dose inhaler 1 puff 1 puff inhalation Daily (RT) Gaby Doyle MD 1 puff at 12/12/23 0853 gabapentin (NEURONTIN) capsule 300 mg 300 mg oral TID Bernard Casillas MD 300 mg at 12/12/23 0841 glucagon injection 1 mg 1 mg intramuscular Q30 Min PRN Gaby Doyle MD hydrALAZINE (APRESOLINE) injection 10 mg 10 mg intravenous Q15 Min PRN Gaby Doyle MD levothyroxine (SYNTHROID) tablet 150 mcg 150 mcg oral Daily - 0600 Bernard Casillas MD 150 mcg at12/12/23 0527 ondansetron (ZOFRAN) injection 4 mg 4 mg intravenous Q4H PRN Kristen Isabel NP 4 mg at 12/11/23 0142 oxyCODONE-acetaminophen (PERCOCET) 5-325 mg per tablet 1 tablet 1 tablet oral QID PRN Carlos Chaves MD 1 tablet at 12/12/23 0841 pantoprazole (PROTONIX) 40 mg in sodium chloride 0.9% 10 mL IV Syringe 40 mg intravenous BID Kristen Isabel NP 40 mg at 12/12/23 0840 ramelteon (ROZEREM) tablet 8 mg 8 mg oral Nightly PRN Bernard Casillas MD rosuvastatin (CRESTOR) tablet 40 mg 40 mg oral Daily Lianet Mckinney NP 40 mg at 12/12/23 0841 sodium chloride 0.9% flush 0.5-20 mL 0.5-20 mL intra-catheter Q8H AIMEE Gaby Doyle MD 10 mL at 12/12/23 0527 sodium chloride 0.9% flush 0.5-20 mL 0.5-20 mL intra-catheter PRN Gaby Doyle MD tamsulosin (FLOMAX) extended release capsule 0.4 mg 0.4 mg oral Nightly Bernard Casillas MD 0.4 mg at 12/11/232031 tiZANidine (ZANAFLEX) tablet 2 mg 2 mg oral TID PRN Dioni Orosco MD 2 mg at 12/08/23 1019 zolpidem (AMBIEN) tablet 5 mg 5 mg oral Nightly PRN Zheng Veras NP 5 mg at 12/11/232031 acetaminophen OR acetaminophen OR acetaminophen albuterol HFA sodium chloride 0.9% dextrose OR dextrose glucagon hydrALAZINE OR [DISCONTINUED] labetalol ondansetron oxyCODONE-acetaminophen ramelteon sodium chloride 0.9% tiZANidine zolpidem Physical Exam Constitutional: General: He is not in acute distress. Appearance: He is not toxic-appearing or diaphoretic. HENT: Head: Normocephalic and atraumatic. Eyes: General: Lids are normal. No scleral icterus. Cardiovascular: Rate and Rhythm: Normal rate and regular rhythm. Pulmonary: Effort: Pulmonary effort is normal. No respiratory distress. Abdominal: General: There is no distension. Palpations: Abdomen is soft. Tenderness: There is no abdominal tenderness. Musculoskeletal: Cervical back: Neck supple. Neurological: Mental Status: He is alert. Cranial Nerves: Dysarthria present. Motor: Weakness (Left hemiparesis, facial droop) present. Lab Data Laboratory review: Chemistry CMP: Lab Results Component Value Date BUNSER 18 12/12/2023 CALCIUM 9.0 12/12/2023 CO2 24 12/12/2023 CHLORIDE 105 12/12/2023 CREATININE 1.14 12/12/2023 GLUCOSE 105 12/12/2023 POTASSIUM 4.8 12/12/2023 SODIUM 138 12/12/2023 , CBC: Lab Results Component Value Date WBC 8.5 12/12/2023 RBC 4.24 (L) 12/12/2023 HGB 13.5 12/12/2023 HCT 41.8 12/12/2023 MCV 98.6 (H) 12/12/2023 MCH 31.8 12/12/2023 MCHC 32.3 12/12/2023 RDWCV 12.9 12/12/2023 RDWSD 46.5 12/12/2023 MPV 10.1 12/12/2023 NRBCABS 0.00 12/12/2023 , Coags: Lab Results Component Value Date PT 12.7 12/11/2023 INR 1.11 12/11/2023 , Lipids: No results found for: CHOL , CHLPL , HDL , LDLCALC , TRIG , CHOLHDL , Cardiac Enzymes: No results found for: CKTOTAL , CKMB , CKMBINDEX , TROPONINT and POC Glucose: Lab Results Component Value Date GLUCOSE 105 12/12/2023 Assessment and Plan Principal Problem: Acute CVA (cerebrovascular accident) (HCC) Acute ischemic right cerebral stroke, POA - s/p TNK, post thrombolytic care on 12/07/23 with neuro checks -Aspirin on hold. Rosuvastatin. - TTE with bubble study showed no evidence of right to left shunt. - MRI brain 12/08/23 showing acute infarct posterior limb internal capsule right side. Underlying atrophy and small-vessel disease. No hemorrhagic changes identified. -PT/OT/REGISTERED MEDICAL ASSISTANT -Change diet to mechanical soft on 12/10 -Plan to repeat CT head and resume aspirin if neurology agreeable Possible GI bleed on 12/09-12/10 -Holding aspirin and lovenox -FOB pending -Protonix IV HTN, POA - Under control -prn Hydralazine for SBP< 185 or DBP > 110 -monitor blood pressure closely and treat accordingly HLD, POA - continue with statin Asthma -patient not in exacerbation - resume prn albuterol AAA, POA - HTN control when post acute stroke - statin GERD/ PUD, POA - continue Protonix Hypothyroidism -levothyroxine Alzheimer, POA - continue home Donepezil Depression, POA - continue home Mirtazapine BPH -continue Flomax Insomnia, POA - replace home melatonin with ramelteon prn -home ambien prn OA -Resume home percocet VTE Prophylaxis with enoxaparin on hold Pt will need continued inpatient management for the above medical issues. CONSULTS RADIOGRAPHY TECHNICIAN CONSULT IP CONSULT TO NUTRITION SERVICES IP CONSULT TO NEUROLOGY IP CONSULT TO SOCIAL WORK IP CONSULT TO SOCIAL WORK Zheng Veras NP [facility] Hospitalist 12/12/2023 1:57 PM 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 * Tyrel Vasquez, MODELING ANALYST - 12/11/2023 3:00 PM CST Physical Therapy PT PROGRESS NOTE PATIENT'S NAME:Gunjan Gtz Jr. :1945 AGE:78 y.o. ROOM:[place] [address] Past Medical History: Diagnosis Date Acute gastric [...] delayed healing, subsequent encounter Clotting disorder (CMS/HCC) ([facility]) Complex tear of medial meniscus of left knee as current injury Complex tear of medial meniscus of right knee as current injury Cramps of lower extremity Diverticulitis of colon Easy bruisability Fatigue Frequent urination Gastroesophageal reflux disease GERD Hypothyroidism Incontinence of urine Muscle weakness Osteoarthritis Osteoarthritis Peptic ulcer Peptic ulcer disease Seizures ([facility]) 1997 last seizure in 1997 SOB (shortness of breath) on exertion Subchondral insufficiency fracture of condyle of left femur (CMS/HCC) ([facility]) Vertigo Vision changes Visual disturbance hx of double vision, corrective lenses Past Surgical History: Procedure Laterality Date CATARACT EXTRACTION, BILATERAL Bilateral 2018 HERNIA REPAIR 1979 Hiatal Hernia repair KNEE ARTHROSCOPY Bilateral THYROIDECTOMY 12/27/2019 Patient Active Problem List Diagnosis Primary osteoarthritis of both knees Subchondral insufficiency fracture of condyle of left femur (CMS/HCC) ([facility]) Closed fracture of left tibial plateau with [...] Skin lesion of breast Edema Intermittent claudication ([facility]) Iron deficiency anemia Peripheral vascular disease ([facility]) Pain due to total right knee replacement ([facility]/HCC) ([facility]) Hamstring tendinitis of right thigh Quadriceps weakness Idiopathic peripheral neuropathy Abnormality of gait and mobility Hx of total knee replacement, right Neuropathy ([facility]) 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 Biceps tendinitis of left upper extremity Tear of left glenoid labrum Coffee ground emesis Upper GI bleed Acquired hypothyroidism Acute blood loss anemia Lung nodule Nocturnal cough Hiatal hernia Infrarenal abdominal aortic aneurysm (AAA) without rupture ([facility]) Acute CVA (cerebrovascular accident) ([facility]) TIME IN: 1500 TIME OUT: 1543 SUBJECTIVE The last walk was easy MENTAL STATUS/ORIENTATION: Alert and oriented x4 PAIN: Pre-therapy pain level: 0/10 Pain location: n/a Pain intervention: not needed Post-therapy pain level/response to intervention: 0/10 OBJECTIVE PRECAUTIONS: fall and seizure APPEARANCE/POSTURE: Pt sitting in recliner w/ call light in reach, in no distress, on room air, family in room, and pt pleasantly agreeable to therapy MOBILITY DOCUMENTATION: Bed Mobility/Transfers: Mod/max assist of 1 for sit to and from stands with presence of rasheed cane- increased time needed to elevate R UE up to device Max assist of 1 for b/s chair to recliner using rasheed aide Gait: 7ft x 1 using rasheed aide- mod to max assist of 1. Pt demonstrated non functional gertrudis, flexed posture, decreased step length bilat, reduced L foot clearance, downward gaze, poor L foot placement, narrow base of support, and occasional buckling of L knee during stance phase TREATMENT: Education on IP REHAB FACILITY to pt and 3 of patients family members in room- All highly receptive LE seated HEP exercises- max assist for L LE. 10-15 reps bilaterally APPEARANCE/POSTURE (end of session): appearance otherwise unchanged from PT arrival in room and + handoff given to MARAH Holloway EDUCATION:therapeutic activity, therapeutic exercises , functional transfer training, gait training, strengthening, endurance training, safety , durable medical equipment education, and range of motion RESPONSE TO EDUCATION: needs reinforcement ASSESSMENT Activity tolerance/response to P.T.: Pt denied adverse effects during strengthening exercises and ambulation. Pt benefited from constant verbal and tactile cueing for device and LE sequencing during gait training. Pt and family very receptive during session all education on PT recommendations, roleand benefits of PT, and durable medical equipment. Barriers to learning: Language and Physical Barriers to discharge: Limited family support, Limited safety awareness, Communication deficit, Decreased endurance, Decreased proprioception, Upper extremity weakness, Lower extremity weakness, Longstanding deficits, Medical complications, and Stairs at home Patient continues progressing toward previously set goals which remain appropriate at this time. PLAN PT Discharge Recommendations this date: PT Recommendation/Plan: Inpatient Rehab Facility Patient at high risk for: Falls, Readmission, Injury due to decreased ability to care for self, Injury due to reduced functional status, Injury due to impaired cognition, Injury due to balance deficits, Injury at home as patient has not returned to prior level of function, Developing impaired skin integrity, Cognitive decline due to decreased social participation, Prolonged dependence for self care tasks, Improper use of DME Recommend Inpatient Rehab/Acute Rehab due to: Ability to actively participate in intensive therapy 3 hours/day, 5 days/week or 900 minutes per week, Highly motivated to participate in therapy, Not atbaseline due to impaired ability to complete ADLs, Impaired ability to complete functional mobility, Likely to return to the community at discharge with support system in place, Requires greater than25% physical assistance with most mobility tasks, Requires greater than 25% physical assistance with most ADL tasks, Requires multiple therapy disciplines to address functional deficits, Patient and caregiver require specialized skilled training due to new level of function/diagnosis, Requires skilled therapy interventions to address neurological deficits PT Frequency during current admission: 3-5x/wk CARE PLAN Multi-Disciplinary Problems (from Physical Therapy) Active Problems Problem: PT Misc Start Date: 12/08/23 Goal Start Date Expected End Date End Date Patient to perform bed mobility with supervision. Progressing 12/08/23 12/15/23 -- Goal Start Date Expected End Date End Date Patient to perform functional transfers with most appropriate device supervision. Progressing 12/08/23 12/15/23 -- Goal Start Date Expected End Date End Date Patient to ambulate 50 feet with most appropriate device supervision. Progressing 12/08/23 12/15/23 -- Goal Start Date Expected End Date End Date Patient to perform standing balance activity x5 minutes with supervision and UE support as needed Progressing 12/08/23 12/15/23 -- Goal Start Date Expected End Date End Date Patient to perform HEP for BLE strength and balance with at least 10 reps each. Progressing 12/08/23 12/15/23 -- If this is the last note, please consider this the discharge summary. Cosigned by Ryann Escobedo PT at 12/16/2023 8:14 AM RAG 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 * Zheng Veras NP - 12/11/2023 12:56 PM CST Hospitalist Progress Note Name: Gunjan Gtz JrMason Admission Date: 12/07/2023 Today's Date: 12/11/2023 Assessment: Subjective: Clinical course: Patient is a 78 y.o. male presented to the ICU with chief complaint of acute right cerebral ischemic stroke. HPI: Gunjan Gtz Jr. Is a 78 y.o. male who presented to the emergency room December 07, 2023 at 1:02 p.m. for an acute stroke. The patient reported sudden onset of difficulty with speech left arm weakness and left leg weakness. The last known well was 10:00 a.m. today. He was on the way to see ortho when he noted weakness of the left hand and arm when he tried to open the car door with his left hand because his left arm and hand were weak. He had difficulty getting up out of the car because of weakness of the left leg. He could not get himself up so he set himself back in the car and called the orthopedic surgeon service, and 911 was called. He was brought to the emergency room, tele stroke was consulted and the patient was given tenecteplase at 1330 and neurology consultation is requested. CT of the head CTA of the head and neck showed no acute ischemia or large vessel occlusion. No significant stenosis of the carotid vessels. He came to ICU for post thrombolytic care. Reports pain in right jaw new since admission. Denies recent illness/ sick contacts. Is aware of his dysarthria. Reports he had MRs before without issue. 12/10: Patient awake and alert, sitting in chair. Reports left sided weakness persists. Also complains of blurred and double vision. Also complains of mild headache. Patient requests home sleep aides. and daughter at bedside. states patient has difficulty swallowing food as it gets stuck inthe mouth on the left side. RN reports patient coffee ground emesis overnight. Aspirin and lovenox currently on hold. No further episodes. Review of Systems Constitutional: Negative for chills, fever and malaise/fatigue. Respiratory: Negative for shortness of breath. Cardiovascular: Negative for chest pain. Gastrointestinal: Negative for abdominal pain, nausea and vomiting. Neurological: Positive for sensory change, speech change, focal weakness and headaches. Objective: Vitals: 12/11/23 0000 12/11/23 0400 12/11/23 0800 12/11/23 1200 BP: (!) 175/84 152/86 138/87 134/86 BP Location: Left arm Left arm Left arm Left arm Patient Position: Lying Lying HOB 30 degrees HOB 30 degrees Pulse: 73 59 61 71 Resp: 15 14 16 16 Temp: 36.5 ??C (97.7 ??F) 36.4 ??C (97.5 ??F) 36.7 ??C (98 ??F) 36.3 ??C (97.4 ??F) TempSrc: Oral Oral Oral Axillary SpO2: 98% 96% 95% 99% Weight: Height: Wt Readings from Last 3 Encounters: 12/09/23 106.1 kg (233 lb 12.8 oz) 12/08/23 103.4 kg (227 lb 15.3 oz) 11/12/23 99.8 kg (220 lb) I/O last 3 completed shifts: In: 720 [P.O.:720] Out: - I/O this shift: In: 200 [P.O.:200] Out: - Scheduled Meds Current Facility-Administered Medications Medication Dose Route Frequency Provider Last Rate Last Admin acetaminophen (TYLENOL) tablet 650 mg 650 mg oral Q4H PRN Bernard Casillas MD 650 mg at 12/09/232207 Or acetaminophen (TYLENOL) 32 mg/mL oral liquid 650 mg 650 mg feeding tube Q4H PRN Bernard Casillas MD Or acetaminophen (TYLENOL) suppository 650 mg 650 mg rectal Q4H PRN Bernard Casillas MD albuterol HFA (PROVENTIL HFA,VENTOLIN HFA,PROAIR HFA) 90 mcg/actuation inhaler 2 puff 2 puff inhalation Q4H PRN (RT) Gaby Doyle MD [Held by Provider] aspirin chewable tablet 81 mg 81 mg oral Daily Gaby Doyle MD 81 mg at 12/10/23 0847 Carrier Fluids for Secondary Infusion - 0.9% Sodium Chloride 30 mL intravenous PRN Gaby Doyle MD dextrose oral liquid liquid 15 g 15 g oral Q15 Min PRN Gaby Doyle MD Or dextrose (D10W) 10% bolus 250 mL 250 mL intravenous Q15 Min PRN Gaby Doyle MD donepeziL (ARICEPT) tablet 10 mg 10 mg oral Nightly Bernard Casillas MD 10 mg at 12/10/232047 [Held by Provider] enoxaparin (LOVENOX) syringe 40 mg 40 mg subcutaneous Daily- 2100 Gaby Doyle MD 40 mg at 12/10/232047 fluticasone furoate-vilanteroL (BREO ELLIPTA) 100-25 mcg/dose inhaler 1 puff 1 puff inhalation Daily (RT) Gaby Doyle MD 1 puff at 12/11/23 0730 gabapentin (NEURONTIN) capsule 300 mg 300 mg oral TID Bernard Casillas MD 300 mg at 12/11/23 0841 glucagon injection 1 mg 1 mg intramuscular Q30 Min PRN Gaby Doyle MD hydrALAZINE (APRESOLINE) injection 10 mg 10 mg intravenous Q15 Min PRN Gaby Doyle MD levothyroxine (SYNTHROID) tablet 150 mcg 150 mcg oral Daily - 0600 Bernard Casillas MD 150 mcg at12/11/23 0547 ondansetron (ZOFRAN) injection 4 mg 4 mg intravenous Q4H PRN Kristen Isabel NP 4 mg at 12/11/23 0142 oxyCODONE-acetaminophen (PERCOCET) 5-325 mg per tablet 1 tablet 1 tablet oral QID PRN Carlos Chaves MD 1 tablet at 12/10/23 1619 pantoprazole (PROTONIX) 40 mg in sodium chloride 0.9% 10 mL IV Syringe 40 mg intravenous BID Kristen Isabel NP 40 mg at 12/11/23 0841 ramelteon (ROZEREM) tablet 8 mg 8 mg oral Nightly PRN Bernard Casillas MD rosuvastatin (CRESTOR) tablet 40 mg 40 mg oral Daily Lianet Mckinney NP 40 mg at 12/11/23 0841 sodium chloride 0.9% flush 0.5-20 mL 0.5-20 mL intra-catheter Q8H AIMEE Gaby Doyle MD 10 mL at 12/11/23 0547 sodium chloride 0.9% flush 0.5-20 mL 0.5-20 mL intra-catheter PRN Gaby Doyle MD tamsulosin (FLOMAX) extended release capsule 0.4 mg 0.4 mg oral Nightly Bernard Casillas MD 0.4 mg at 12/10/232047 tiZANidine (ZANAFLEX) tablet 2 mg 2 mg oral TID CHEYENNEN Dioni Orosco MD 2 mg at 12/08/23 1019 acetaminophen OR acetaminophen OR acetaminophen albuterol HFA sodium chloride 0.9% dextrose OR dextrose glucagon hydrALAZINE OR [DISCONTINUED] labetalol ondansetron oxyCODONE-acetaminophen ramelteon sodium chloride 0.9% tiZANidine Physical Exam Constitutional: General: He is not in acute distress. Appearance: He is not toxic-appearing or diaphoretic. HENT: Head: Normocephalic and atraumatic. Eyes: General: No scleral icterus. Cardiovascular: Rate and Rhythm: Normal rate and regular rhythm. Pulmonary: Effort: Pulmonary effort is normal. No respiratory distress. Abdominal: Tenderness: There is no guarding. Musculoskeletal: Cervical back: Neck supple. Right lower leg: No edema. Left lower leg: No edema. Skin: General: Skin is warm and dry. Findings: No rash. Neurological: Mental Status: He is alert and oriented to person, place, and time. Comments: Left hemiparesis, left facial droop, dysarthria Lab Data Laboratory review: Chemistry CMP: Lab Results Component Value Date BUNSER 19 12/11/2023 CALCIUM 9.1 12/11/2023 CO2 25 12/11/2023 CHLORIDE 104 12/11/2023 CREATININE 1.04 12/11/2023 GLUCOSE 116 12/11/2023 POTASSIUM 4.5 12/11/2023 SODIUM 138 12/11/2023 , CBC: Lab Results Component Value Date WBC 9.1 12/11/2023 RBC 4.26 (L) 12/11/2023 HGB 13.6 12/11/2023 HCT 41.5 12/11/2023 MCV 97.4 (H) 12/11/2023 MCH 31.9 12/11/2023 MCHC 32.8 12/11/2023 RDWCV 12.9 12/11/2023 RDWSD 45.8 12/11/2023 MPV 10.7 12/11/2023 NRBCABS 0.00 12/11/2023 , Coags: Lab Results Component Value Date PT 12.7 12/11/2023 INR 1.11 12/11/2023 , Lipids: No results found for: CHOL , CHLPL , HDL , LDLCALC , TRIG , CHOLHDL , Cardiac Enzymes: No results found for: CKTOTAL , CKMB , CKMBINDEX , TROPONINT and POC Glucose: Lab Results Component Value Date GLUCOSE 116 12/11/2023 Assessment and Plan Principal Problem: Acute CVA (cerebrovascular accident) (HCC) Acute ischemic right cerebral stroke, POA - s/p TNK, post thrombolytic care on 12/07/23 with neuro checks -Aspirin on hold. Rosuvastatin. - TTE with bubble study showed no evidence of right to left shunt. - MRI brain 12/08/23 showing acute infarct posterior limb internal capsule right side. Underlying atrophy and small-vessel disease. No hemorrhagic changes identified. -PT/OT/REGISTERED MEDICAL ASSISTANT -Change diet to mechanical soft on 12/10 Possible GI bleed on 12/09-12/10 -Holding aspirin and lovenox -FOB pending -Protonix IV HTN, POA - Under control -prn Hydralazine for SBP< 185 or DBP > 110 -monitor blood pressure closely and treat accordingly HLD, POA - continue with statin Asthma -patient not in exacerbation - resume prn albuterol AAA, POA - HTN control when post acute stroke - statin GERD/ PUD, POA - continue Protonix Hypothyroidism -levothyroxine Alzheimer, POA - continue home Donepezil Depression, POA - continue home Mirtazapine BPH -continue Flomax Insomnia, POA - replace home melatonin with ramelteon prn -home ambien prn OA -Resume home percocet VTE Prophylaxis with enoxaparin on hold Pt will need continued inpatient management for the above medical issues. CONSULTS RADIOGRAPHY TECHNICIAN CONSULT IP CONSULT TO NUTRITION SERVICES IP CONSULT TO NEUROLOGY IP CONSULT TO SOCIAL WORK IP CONSULT TO SOCIAL WORK Zheng Veras NP [facility] Hospitalist 12/11/2023 12:57 PM 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 * Kenyatta Hummel PTA - 12/10/2023 2:11 PM CST Physical Therapy PT PROGRESS NOTE PATIENT'S NAME:Gunjan Gtz Jr. :1945 AGE:78 y.o. ROOM:[facility]/[id number] Past Medical History: Diagnosis Date Acute gastric [...] fracture of condyle of left femur (CMS/HCC) ([facility]) Vertigo Vision changes Visual disturbance hx [...] without rupture (HCC) Acute CVA (cerebrovascular accident) ([facility]) TIME IN: 1411 TIME OUT: 1454 SUBJECTIVE Yes MENTAL STATUS/ORIENTATION: Alert and oriented x4 PAIN: Pre-therapy pain level: 0/10 Pain location: n/a Pain intervention: n/a Post-therapy pain level/response to intervention: unchanged OBJECTIVE PRECAUTIONS: fall and bed / chair alarm APPEARANCE/POSTURE: pt sitting EOB, alarm active, hospital gown & socks, telemetry, donned gaitbelt, and agreeable to therapy. MOBILITY DOCUMENTATION: Bed Mobility/Transfers: Pt transfers min to mod A sit to/from stand. Gait: Pt amb 15' x2 w/luis rail & close chair follow min to mod A. Deviations include slow gertrudis, decreased step length, flexed posture, downward gaze, poor L foot placement, occ. L knee blocking due to instability, decreased L foot clearance, L foot drag. TREATMENT: Quick MMT performed while pt sitting EOB, more weakness noticed in quads, hamstrings, and hip flexors than previous session. Pt performed standing balance activity w/R UE F- bal x6 and x10 reps on each attempt (x2 total). APPEARANCE/POSTURE (end of session): pt sitting in recliner, call light in reach, RN aware of new weakness on L side and was contacting Neurology. EDUCATION:therapeutic activity, therapeutic exercises , functional transfer training, gait training, balance training / neuromuscular re-education, and safety RESPONSE TO EDUCATION: needs reinforcement ASSESSMENT Activity tolerance/response to P.T.: Pt tolerated amb w/luis rail & second person for safety w/chair follow, as well as standing balance activities despite worsening LE weakness noted w/MMT this session. Barriers to learning: Language and Physical Barriers to discharge: Limited family support, Limited safety awareness, Communication deficit, Decreased endurance, Decreased proprioception, Upper extremity weakness, Lower extremity weakness, Longstanding deficits, Medical complications, and Stairs at home Patient continues progressing toward previously set goals which remain appropriate at this time. PLAN PT Discharge Recommendations this date: PT Recommendation/Plan: Inpatient Rehab Facility Patient at high risk for: Falls, Readmission, Injury due to decreased ability to care for self, Injury due to reduced functional status, Injury due to impaired cognition, Injury due to balance deficits, Injury at home as patient has not returned to prior level of function, Developing impaired skin integrity, Cognitive decline due to decreased social participation, Prolonged dependence for self care tasks, Improper use of DME Recommend Inpatient Rehab/Acute Rehab due to: Ability to actively participate in intensive therapy 3 hours/day, 5 days/week or 900 minutes per week, Highly motivated to participate in therapy, Not atbaseline due to impaired ability to complete ADLs, Impaired ability to complete functional mobility, Likely to return to the community at discharge with support system in place, Requires greater than25% physical assistance with most mobility tasks, Requires greater than 25% physical assistance with most ADL tasks, Requires multiple therapy disciplines to address functional deficits, Patient and caregiver require specialized skilled training due to new level of function/diagnosis, Requires skilled therapy interventions to address neurological deficits PT Frequency during current admission: 3-5x/wk CARE PLAN Multi-Disciplinary Problems (from Physical Therapy) Active Problems Problem: PT Misc Start Date: 12/08/23 Goal Start Date Expected End Date End Date Patient to perform bed mobility with supervision. 12/08/23 12/15/23 -- progressing Goal Start Date Expected End Date End Date Patient to perform functional transfers with most appropriate device supervision. 12/08/23 12/15/23-- progressing Goal Start Date Expected End Date End Date Patient to ambulate 50 feet with most appropriate device supervision. 12/08/23 12/15/23 -- progressing Goal Start Date Expected End Date End Date Patient to perform standing balance activity x5 minutes with supervision and UE support as needed 12/08/23 12/15/23 -- progressing Goal Start Date Expected End Date End Date Patient to perform HEP for BLE strength and balance with at least 10 reps each. 12/08/23 12/15/23 -- progressing If this is the last note, please consider this the discharge summary. Cosigned by Torri Lopez, PT at 12/11/2023 3:34 PM RAG 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 * Paresh Prieto, REGISTERED MEDICAL ASSISTANT - 12/10/2023 1:43 PM CST SPEECH LANGUAGE PATHOLOGY PROGRESS NOTE Patient's Name: Gunjan Gtz Jr. : 1945 Age: 78 y.o. Time In: 13:20 Time Out: 13:43 Patient Active Problem List Diagnosis Primary osteoarthritis of both knees Subchondral insufficiency fracture of condyle of left femur (CMS/HCC) ([facility]) Closed fracture of left tibial plateau with [...] Skin lesion of breast Edema Intermittent claudication ([facility]) Iron deficiency anemia Peripheral vascular disease ([facility]) Pain due to total right knee replacement (CMS/HCC) ([facility]) Hamstring tendinitis of right thigh Quadriceps weakness Idiopathic peripheral neuropathy Abnormality of gait and mobility Hx of total knee replacement, right Neuropathy (CMS/[facility]) 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 Biceps tendinitis of left upper extremity Tear of left glenoid labrum Coffee ground emesis Upper GI bleed Acquired hypothyroidism Acute blood loss anemia Lung nodule Nocturnal cough Hiatal hernia Infrarenal abdominal aortic aneurysm (AAA) without rupture ([facility]) Acute CVA (cerebrovascular accident) ([facility]) Past Medical History: Diagnosis Date Acute gastric ulcer without hemorrhage or perforation Ulcer, gastric, acute - (Added by TW Conv) Alzheimer's dementia ([facility]) Asthma Back pain Cataract Closed fracture of left tibial plateau with delayed healing Closed fracture of right tibial plateau with delayed healing Closed nondisplaced osteochondral fracture of left patella with delayed healing Closed osteochondral fracture of patella, right, with delayed healing, subsequent encounter Clotting disorder (CMS/HCC) ([facility]) Complex tear of medial meniscus of left knee as current injury Complex tear of medial meniscus of right knee as current injury Cramps of lower extremity Diverticulitis of colon Easy bruisability Fatigue Frequent urination Gastroesophageal reflux disease GERD Hypothyroidism Incontinence of urine Muscle weakness Osteoarthritis Osteoarthritis Peptic ulcer Peptic ulcer disease Seizures ([facility]) 1997 last seizure in 1997 SOB (shortness of breath) on exertion Subchondral insufficiency fracture of condyle of left femur (CMS/HCC) ([facility]) Vertigo Vision changes Visual disturbance hx of double vision, corrective lenses Past Surgical History: Procedure Laterality Date CATARACT EXTRACTION, BILATERAL Bilateral 2018 HERNIA REPAIR 1979 Hiatal Hernia repair KNEE ARTHROSCOPY Bilateral THYROIDECTOMY 12/27/2019 SUBJECTIVE MENTAL STATUS: Patient awake, resting in bed. Family present in room. Patient continues to report double vision, blurry vision. PAIN: Pre Therapy Pain Level: 0/10 Pain Location: N/A Pain Intervention: N/A Post Therapy Pain Level/Response to Intervention: 0/10 OBJECTIVE PRECAUTIONS: Fall, Seizure SWALLOWING: Swallow not assessed by REGISTERED MEDICAL ASSISTANT. Patient passed nursing dysphagia screener on admission. COGNITION: Cognitive deficits in insight and short term memory. COMMUNICATION: Mild dysarthric speech TREATMENT ACTIVITIES: Patient able to produce spontaneous sentences with 100% intelligibility. Mild dysarthria noted. RIPA-2 continued. Problem solving/reasoning with 90% accuracy Able to track to midline and left visual field independently. Left visual inattention noted. EDUCATION: PATIENT/FAMILY EDUCATION: Reviewed discharge recommendations with patient Response to Education: Understanding verbalized ASSESSMENT Activity Tolerance/Response to S.T.: Tolerated speech therapy session with no complaints Barriers to learning: Cognition, Vision Current status: Patient with mild dysarthric speech and mild/moderate cognitive deficits in insightand memory. Progress toward goals: Patient continues to progress toward previously set goals which remain appropriate at this time. PLAN Multi-Disciplinary Problems (from Speech Therapy) Active Problems Problem: Cognitive/Linguistics Start Date: 12/09/23 Goal Start Date Expected End Date End Date STG - Patient will recall new information 12/09/23 12/16/23 -- Goal Details: With 80% accuracy Goal Start Date Expected End Date End Date STG - Patient will participate in further assessment of cognitive-linguistic skills 12/09/23 12/16/23 -- Problem: Communication/Motor Speech Start Date: 12/09/23 Goal Start Date Expected End Date End Date STG - Patient will participate in oral-motor exercises to improve strength 12/09/23 12/16/23 -- Frequency of Treatment: BID, 5xs weekly Recommendations: Recommend acute rehab pending qualifying criteria If this is the last note, consider this the discharge summary. 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 * Lianet Mckinney NP - 12/10/2023 11:30 AM CST Neurology Daily Progress Note Subjective Chief complaint of stroke. Interval History: 12/08/2023 - The patient is seen and examined laying in bed. He is drowsy but will wake up and follow commands. He has a left sided facial droop and weakness of his left arm and leg. Family at bedside. MRI brain and ECHO completed today. 12/09/2023 - The patient is seen and examined after working with therapy. 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 Heis able to move the left leg though weakness is present. He continues to have a left facial droop as well. The nurse noted that he had some trouble reading and looking out the window today and statesthat he does have double and blurry vision with distance at times. 12/10/2023 - The patient is seen and examined laying in bed. He is alert, orientated, and able to follow commands. He is unable to move the left arm except for at the shoulder but can move the left legthough weaker than the right. He states that his vision is a little worse today than it was yesterday. Review of Systems Constitutional: Negative for chills, decreased appetite, diaphoresis and fever. HENT: Negative for congestion, hearing loss and hoarse voice. Eyes: Positive for blurred vision and double vision. Negative for visual halos. Cardiovascular: Negative for chest pain and leg swelling. Respiratory: Negative for cough and shortness of breath. Skin: Negative for rash. Gastrointestinal: Negative for bowel incontinence, nausea and vomiting. Genitourinary: Negative for bladder incontinence. Neurological: Positive for focal weakness. Negative for brief paralysis, difficulty with concentration, disturbances in coordination, excessive daytime sleepiness, dizziness, headaches, light-headedness, loss of balance, numbness, paresthesias, seizures, sensory change, tremors, vertigo and weakness. Psychiatric/Behavioral: Negative for altered mental status, hallucinations, memory loss and suicidal ideas. Current Facility-Administered Medications Medication Dose Route Frequency Provider Last Rate Last Admin acetaminophen (TYLENOL) tablet 650 mg 650 mg oral Q4H PRN Bernard Casillas MD 650 mg at 12/09/232207 Or acetaminophen (TYLENOL) 32 mg/mL oral liquid 650 mg 650 mg feeding tube Q4H PRN Bernard Casillas MD Or acetaminophen (TYLENOL) suppository 650 mg 650 mg rectal Q4H PRN Bernard Casillas, MD albuterol HFA (PROVENTIL HFA,VENTOLIN HFA,PROAIR HFA) 90 mcg/actuation inhaler 2 puff 2 puff inhalation Q4H PRN (RT) Gaby Doyle MD aspirin chewable tablet 81 mg 81 mg oral Daily Gaby Doyle MD 81 mg at 12/10/23 0847 Carrier Fluids for Secondary Infusion - 0.9% Sodium Chloride 30 mL intravenous PRN Gaby Doyle MD dextrose oral liquid liquid 15 g 15 g oral Q15 Min PRN Gaby Doyle MD Or dextrose (D10W) 10% bolus 250 mL 250 mL intravenous Q15 Min PRN Gaby Doyle MD donepeziL (ARICEPT) tablet 10 mg 10 mg oral Nightly Bernard Casillas MD 10 mg at 12/09/232119 enoxaparin (LOVENOX) syringe 40 mg 40 mg subcutaneous Daily-2099 Gaby Doyle MD 40 mg at 12/09/232118 fluticasone furoate-vilanteroL (BREO ELLIPTA) 100-25 mcg/dose inhaler 1 puff 1 puff inhalation Daily (RT) Gaby Doyle MD 1 puff at 12/10/23 0843 gabapentin (NEURONTIN) capsule 300 mg 300 mg oral TID Bernard Casillas MD 300 mg at 12/10/23 0847 glucagon injection 1 mg 1 mg intramuscular Q30 Min PRN Gaby Doyle MD hydrALAZINE (APRESOLINE) injection 10 mg 10 mg intravenous Q15 Min PRN Gaby Doyle MD levothyroxine (SYNTHROID) tablet 150 mcg 150 mcg oral Daily - 0600 Bernard Casillas MD 150 mcg at 12/10/[address] (PROTONIX) extended release tablet 20 mg 20 mg oral Daily Gaby Doyle MD 20 mg at 12/10/23 0847 ramelteon (ROZEREM) tablet 8 mg 8 mg oral Nightly PRN Bernard Casillas MD rosuvastatin (CRESTOR) tablet 40 mg 40 mg oral Daily Lianet Mckinney NP 40 mg at 12/10/23 0848 sodium chloride 0.9% flush 0.5-20 mL 0.5-20 mL intra-catheter Q8H AIMEE Gaby Doyle MD 10 mL at 12/10/23 0640 sodium chloride 0.9% flush 0.5-20 mL 0.5-20 mL intra-catheter PRN Gaby Doyle MD tamsulosin (FLOMAX) extended release capsule 0.4 mg 0.4 mg oral Nightly Bernard Casillas MD 0.4 mg at 12/09/23 2120 tiZANidine (ZANAFLEX) tablet 2 mg 2 mg oral TID PRN Dioni Orosco MD 2 mg at 12/08/23 1019 Objective Vitals: 24hr Min/Max: Temp Min: 36.4 ??C (97.5 ??F) Max: 37.1 ??C (98.7 ??F) Pulse Min: 60 Max: 74 BP Min: 130/74 Max: 154/83 Resp Min: 14 Max: 20 SpO2 Min: 94 % Max: 99 % Most Recent: Vitals: 12/10/23 1200 BP: 132/62 Pulse: 60 Resp: 19 Temp: 37 ??C (98.6 ??F) SpO2: 95% Physical Exam Vitals and nursing note reviewed. HENT: Head: Normocephalic and atraumatic. Eyes: Extraocular Movements: Extraocular movements intact and EOM normal. Pupils: Pupils are equal, round, and reactive to light. Cardiovascular: Rate and Rhythm: Normal rate. Pulmonary: Effort: Pulmonary effort is normal. Abdominal: Palpations: Abdomen is soft. Musculoskeletal: General: Normal range of motion. Cervical back: Normal range of motion. Right lower leg: No edema. Left lower leg: No edema. Skin: General: Skin is warm. Findings: No rash. Neurological: Mental Status: He is alert and oriented to person, place, and time. Coordination: Zedegb-Uisk-Wwjjqk Test abnormal. Psychiatric: Mood and Affect: Mood normal. Speech: Speech normal. Behavior: Behavior normal. Neurologic Exam Mental Status Oriented to person, place, and time. Oriented to person. Oriented to place. Oriented to time. Oriented to year and month. Attention: normal. Concentration: normal. Speech: speech is normal Level of consciousness: alert Knowledge: good. Normal comprehension. Cranial Nerves CN II Visual white full to confrontation. CN III, IV, Pupils are equal, round, and reactive to light. Extraocular motions are normal. Right pupil: Shape: regular. Reactivity: brisk (with distance). Left pupil: Shape: regular. Reactivity: brisk. CN III: no CN III palsy CN : no CN palsy Nystagmus: none Diplopia: bilateral CN V Facial sensation intact. CN VII Right facial weakness: none Left facial weakness: central CN VIII CN VIII normal. Hearing: intact CN IX, X CN IX normal. CN X normal. CN XI CN XI normal. CN XII CN XII normal. Motor Exam Muscle bulk: normal Overall muscle tone: normal Strength Strength 5/5 except as noted. There is a left hemiparesis with a power of 4/5 and there is a drift of the left leg. Today the patient is able to move the left shoulder but cannot lift the arm againstgravity. Sensory Exam Light touch normal. Gait, Coordination, and Reflexes Coordination Finger to nose coordination: abnormal Tremor Resting tremor: absent Intention tremor: absent Reflexes Right plantar: normal Left plantar: normal Right ankle clonus: absent Left ankle clonus: absent I/O last 2 completed shifts: In: 720 [P.O.:720] Out: 450 [Urine:450] No intake/output data recorded. Lab/Radiology/Diagnostic Review: 12/08/2023 Lipid panel LDL 110 12/08/2023 CT head shows cerebral atrophy and small vessel disease, in keeping with the patient's age. No bleed or mass. 12/08/2023 MRI brain shows acute infarct posterior limb internal capsule right side. Underlying atrophy and small vessel disease. No hemorrhagic changes identified. 12/08/2023 CT head shows no definitive acute intracranial findings. Chronic microvascular ischemic changes and volume loss. 12/08/2023 ECHO shows no thrombus or vegetation. EF is measured at 62%. 12/09/2023 CBC unremarkable 12/09/2023 BMP unremarkable New Investigations: 12/10/2023 CBC Hgb 12.8, Hct 38.8 12/10/2023 BMP unremarkable 12/10/2023 ECHO shows no right to left shunt, thrombus, or vegetation. EF is measured at 62%. ASSESSMENTPLAN: Acute right cerebral infarction status post thrombolytic therapy. His stroke risk factors include age as well as dyslipidemia. He will be on the stroke and tPA pathway. There was concern this eveningfor this patient's stroke symptoms becoming worse. Recommendations: CT head was negative for hemorrhage, okay to continue Aspirin 81 mg daily. Continue Rosuvastatin 40 mg daily for goal LDL less than 70. The internal capsule stroke can progress and is recommended to continue supportive care of his stroke symptoms. Continue adequate hydration and control of blood pressure. Continue to control blood pressure for a goal no lower than 130/80 and no higher than 185/110. Continue aggressive PT/OT/ST. Thank you for allowing us to participate in your patient's care. We will follow this patient with you as often as needed. Lianet Mckinney NP Cosigned by Nayan Mahajan II, MD at 12/10/2023 3:26 PM RAG 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 * Carlos Chaves MD - 12/10/2023 11:19 AM CST General Medicine Daily Progress PCP: Wolfgang Serrano [phone] Admit Date: 12/07/2023 12:52 PM Hospital Day: SUBJECTIVE Interval History: C/o blurry vision , no other complains OBJECTIVE Vitals: 24hr Min/Max: Temp Min: 36.4 ??C (97.5 ??F) Max: 37.1 ??C (98.7 ??F) Pulse Min: 60 Max: 74 BP Min: 130/74 Max: 154/83 Resp Min: 14 Max: 20 SpO2 Min: 94 % Max: 99 % Most Recent : Vitals: 12/10/23 0000 12/10/23 0400 12/10/23 0813 12/10/23 0843 BP: 130/74 154/83 136/86 BP Location: Right arm Right arm Left arm Patient Position: Lying Lying Lying Pulse: 65 74 61 Resp: 14 16 18 Temp: 36.8 ??C (98.3 ??F) 36.4 ??C (97.5 ??F) 36.9 ??C (98.4 ??F) TempSrc: Oral Oral Oral SpO2: 99% 99% 94% 99% Weight: Height: I/O last 2 completed shifts: In: 720 [P.O.:720] Out: 450 [Urine:450] Intake/Output Summary (Last 24 hours) at 12/10/2023 1119 Last data filed at 12/09/2023 1910 Gross per 24 hour Intake 480 ml Output 250 ml Net 230 ml Physical Exam: General: This is a 78 y.o. male in no acute distress. Head: Normocephalic, atraumatic. Lungs: Clear breath sounds bilaterally. No wheezing or rhonchi auscultated. No accessory muscles tobreath. Heart: Normal S1 and S2. No murmurs. Regular rate and rhythm , no bradycardia or tachycardia. Abdomen: Soft, nontender. Bowel sounds are present , there is no guarding or rebound tenderness, noascites. No organomegaly. Extremities: No edema. Neuro: Patient is awake and alert, oriented. There is left hemiplegia, no dysarthria. No hemianopsia . ACTIVE SCHEDULED & PRN MEDS aspirin, 81 mg, Daily donepeziL, 10 mg, Nightly enoxaparin, 40 mg, Daily-2100 fluticasone furoate-vilanteroL, 1 puff, Daily (RT) gabapentin, 300 mg, TID levothyroxine, 150 mcg, Daily - [address], 20 mg, Daily rosuvastatin, 40 mg, Daily sodium chloride 0.9%, 0.5-20 mL, Q8H AIMEE tamsulosin, 0.4 mg, Nightly acetaminophen, 650 mg, Q4H PRN Or acetaminophen, 650 mg, Q4H PRN Or acetaminophen, 650 mg, Q4H PRN albuterol HFA, 2 puff, Q4H PRN (RT) sodium chloride 0.9%, 30 mL, PRN dextrose, 15 g, Q15 Min PRN Or dextrose, 250 mL, Q15 Min PRN glucagon, 1 mg, Q30 Min PRN hydrALAZINE, 10 mg, Q15 Min PRN ramelteon, 8 mg, Nightly PRN sodium chloride 0.9%, 0.5-20 mL, PRN tiZANidine, 2 mg, TID PRN Continuous Infusions: LAB REVIEW Recent Labs Lab Units 12/10/2325312/09/2361812/07/232044 WBC K/cumm 7.3 8.6 7.9 HEMOGLOBIN g/dL 12.8* 13.1 13.1 HEMATOCRIT % 38.8* 40.3 39.7 PLATELETS K/cumm 228 210 224 NEUTROS PCT % 55.1 64.1 55.4 LYMPHS PCT % 29.8 23.6 30.7 MONOS PCT % 10.3 8.2 8.8 EOS PCT % 4.0 2.9 4.2 Recent Labs Lab Units 12/10/2325312/09/2361812/08/23 1635 12/08/23 0004 12/07/23204412/07/23 16512/07/23 1330 SODIUM mmol/L 140 140 -- -- 137 -- 139 POTASSIUM PLASMA mmol/L 4.2 4.2 -- -- 4.1 -- 4.8 CHLORIDE mmol/L 106 106 -- -- 103 -- 105 CO2 mmol/L 25 27 -- -- 27 -- 24 ANIONGAP mmol/L 9 7 -- -- 7 -- 10 GLUCOSE mg/dL 100 117 -- -- 107 -- 115 POC GLUCOSE MONITOR mg/dL -- -- 109 < > -- < > -- BUN SERUM mg/dL 17 18 -- -- 16 -- 19 CREATININE mg/dL 1.12 1.14 -- -- 1.39* -- 1.50* CALCIUM mg/dL 8.8 8.9 -- -- 9.0 -- 8.7 ALBUMIN g/dL -- -- -- -- 3.6 -- 3.4* ALK PHOS Units/L -- -- -- -- 107 -- 93 ALT Units/L -- -- -- -- 13 -- 14 AST Units/L -- -- -- -- 20 -- 29 BILIRUBIN TOTAL mg/dL -- -- -- -- 0.4 -- 0.2 < > = values in this interval not displayed. LAB TREND CBC: Lab Results Component Value Date WBC 7.3 12/10/2023 WBC 8.6 12/09/2023 WBC 7.9 12/07/2023 WBC 6.9 12/07/2023 HGB 12.8 (L) 12/10/2023 HGB 13.1 12/09/2023 HGB 13.1 12/07/2023 HGB 12.5 (L) 12/07/2023 HCT 38.8 (L) 12/10/2023 HCT 40.3 12/09/2023 HCT 39.7 12/07/2023 HCT 37.7 (L) 12/07/2023 BMP: Lab Results Component Value Date SODIUM 140 12/10/2023 SODIUM 140 12/09/2023 SODIUM 137 12/07/2023 SODIUM 139 12/07/2023 POTASSIUM 4.2 12/10/2023 POTASSIUM 4.2 12/09/2023 POTASSIUM 4.1 12/07/2023 POTASSIUM 4.8 12/07/2023 CHLORIDE 106 12/10/2023 CREATININE 1.12 12/10/2023 CREATININE 1.14 12/09/2023 CREATININE 1.39 (H) 12/07/2023 CREATININE 1.50 (H) 12/07/2023 CALCIUM 8.8 12/10/2023 CALCIUM 8.9 12/09/2023 CALCIUM 9.0 12/07/2023 CALCIUM 8.7 12/07/2023 No results found for: BNP Lab Results Component Value Date ALKPHOS 107 12/07/2023 ALKPHOS 93 12/07/2023 Lab Results Component Value Date MAGNESIUM 1.9 12/10/2023 MAGNESIUM 1.9 12/09/2023 MAGNESIUM 2.0 12/07/2023 Lab Results Component Value Date AST 20 12/07/2023 AST 29 12/07/2023 Lab Results Component Value Date ALT 13 12/07/2023 ALT 14 12/07/2023 Lab Results Component Value Date PHOS 3.2 12/10/2023 PHOS 3.1 12/09/2023 PHOS 3.1 12/07/2023 Radiology: CT Head WO Contrast Final Result 1. No definitive acute intracranial findings. 2. Chronic microvascular ischemic changes and volume loss. Electronically signed by: Jhonny Smallwood II, D.O. MRI Brain WO Contrast Final Result Acute infarct posterior limb internal capsule right side. Underlying atrophy and small vessel disease. No hemorrhagic changes identified Electronically signed by: Beka Draper M.D. CT Head WO Contrast Final Result Cerebral atrophy and small vessel disease, in keeping with the patient's age. No bleed or mass. Electronically signed by: Cat Sandoval M.D. Transthoracic Echo (TTE) Complete W Doppler/CF Final Result CTA/CTP Rapid Stroke (C) Final Result No CT evidence of stroke. No significant carotid artery stenosis. There is also of the noncontrast CT of the brain called emergency room physician at 1:10 PM, results of the CT angiogram rapid stroke program called to the emergency room physician at 1:30 PM. Electronically signed by: Beka Draper M.D. EKG: Results for orders placed during the hospital encounter of 12/07/23 ECG 12 lead Narrative Vent Rate: 53 bpm RR Interval: 1114 msec MT Interval: 183 msec QRS Duration: 84 msec QT Interval: 420 msec QTC Interval: 404 msec P-R-T [place]: 40 - -10 - 21 degrees IMPRESSION: SINUS BRADYCARDIA MINIMAL VOLTAGE CRITERIA FOR LVH, CONSIDER NORMAL VARIANT [MEETS CRITERIA IN ONE OF: R(aVL), S(V1), R(V5), R(V5/V6)+S(V1)] BORDERLINE ECG Compared to prior EKG, PVCs are no longer present Electronically Signed By: Jasen Tran MD ASSESSMENT AND PLAN All Diagnosis Present on Admission Unless Otherwise Stated: Principal Problem: Acute CVA (cerebrovascular accident) (HCC) Acute ischemic right cerebral stroke, POA - s/p TNK, post thrombolytic care on 12/07/23 with neuro checks -continue Aspirin. Rosuvastatin. - TTE with bubble study showed no evidence of right to left shunt. - MRI brain 12/08/23 showing acute infarct posterior limb internal capsule right side. Underlying atrophy and small-vessel disease. No hemorrhagic changes identified. -PT/OT/REGISTERED MEDICAL ASSISTANT HTN, POA - Under control -prn Hydralazine for SBP< 185 or DBP > 110 -monitor blood pressure closely and treat accordingly HLD, POA - continue with Simvastatin Asthma -patient not in exacerbation - resume prn albuterol AAA, POA - HTN control when post acute stroke - statin GERD/ PUD, POA - continue Protonix Hypothyroidism -levothyroxine Alzheimer, POA - continue home Donepezil Depression, POA - continue home Mirtazapine BPH -continue Flomax Insomnia, POA - replace home melatonin with ramelteon prn OA -Resume home percocet VTE Prophylaxis with enoxaparin CONSULTS RADIOGRAPHY TECHNICIAN CONSULT IP CONSULT TO NUTRITION SERVICES IP CONSULT TO NEUROLOGY IP CONSULT TO SOCIAL WORK IP CONSULT TO SOCIAL WORK [employer] Pager #: [phone] Voice recognition software [employer] was used dictate and transcribe this document. Blood Donor Recruiter Supervisor variances may occur. Despite proofreading, typographical errors may occur. 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 * Jessica Mendez - 12/10/2023 7:54 AM CST Occupational Therapy NOTE / SESSION TYPE: Re-evaluation Patient Name: Gunjan Gtz Jr. Date of : 1945 Age / Sex: 78 y.o. / male Room: [id number] Admit Date: 12/07/2023 Date of Service: 12/10/23 Time In: 1338 Time Out: 1442 Primary Diagnosis: Acute CVA (cerebrovascular accident) (HCC) HPI: Gunjan Gtz Jr. is a 78 y.o. male who presented to the ED via EMS from the parking lot complaining of sudden onset of difficulty with speech, left arm weakness, and left leg weakness; acute right cerebral infarction s/p thrombolytic therapy at 13:30 on 12/07/23, pain in right jaw Per chart: Patient was driving his car and had pulled up to the parking lot to see his orthopedic surgeon today, when he realized that he had developed weakness in the left hand and arm. He noticed he had trouble reaching up to put the blinker on, and then when he tried to open the car door with his left hand he struggled to do this because the arm was weak. He tried to get up out of the car andrealized his left leg was weak also. He slid to the ground, but he was unable to help himself back up by pulling himself up on the open car door. He sat himself back down in the car, called his orthopedic surgeon's office, and they called 911. Notable History: See Below; Also history of insomnia, depression, Alzheimer's dementia Past Medical History: Diagnosis Date Acute gastric ulcer without hemorrhage or perforation Ulcer, gastric, acute - (Added by TW Conv) Alzheimer's dementia ([facility]) Asthma Back pain Cataract Closed fracture of left tibial plateau with delayed healing Closed fracture of right tibial plateau with delayed healing Closed nondisplaced osteochondral fracture of left patella with delayed healing Closed osteochondral fracture of patella, right, with delayed healing, subsequent encounter Clotting disorder ([facility]) ([facility]) Complex tear of medial meniscus of left knee as current injury Complex tear of medial meniscus of right knee as current injury Cramps of lower extremity Diverticulitis of colon Easy bruisability Fatigue Frequent urination Gastroesophageal reflux disease GERD Hypothyroidism Incontinence of urine Muscle weakness Osteoarthritis Osteoarthritis Peptic ulcer Peptic ulcer disease Seizures ([facility]) 1997 last seizure in 1997 SOB (shortness of breath) on exertion Subchondral insufficiency fracture of condyle of left femur ([facility]) ([facility]) Vertigo Vision changes Visual disturbance hx of double vision, corrective lenses Past Surgical History: Procedure Laterality Date CATARACT EXTRACTION, BILATERAL Bilateral 2018 HERNIA REPAIR 1979 Hiatal Hernia repair KNEE ARTHROSCOPY Bilateral THYROIDECTOMY 12/27/2019 Precautions (Including Weight-Bearing): Fall risk and Seizure precautions Caregiver Present for Session (Yes or No): Yes: 2 daughters SUBJECTIVE: Patient Comment: my arm hangs down and it feels weird Pain Assessment: Pre-therapy pain level: 0 / 10 Pain location: No pain - Location N/A Pain intervention(s): No pain - Intervention N/A Post-therapy pain level: 0 / 10 Pain scale used: 0-10 SCALE Prior Living Environment and Level of Function: Lives with: Receives assistance from / other social supports available: Supportive who works cardiac sonographer; supportive daughter Living environment (Type of residence / Entrance accessibility): One story house with 1-2 steps to enter without handrails. Basement that patient does access. 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 Fall(s) within the last 6 months: No OBJECTIVE: Appearance: Presentation upon OT arrival: Patient Supine with head of bed elevated Presentation upon OT departure: Patient Sitting in bedside recliner with PT in room Bed / chair alarm in place and activated upon OT departure: Yes Call light within arms reach of patient at end of session: No - due to patient left with medical staff Completed patient handoff and notified Physical Therapist / Physical Therapist Statistical Typist, name: Sujata, of patient's location and functional status upon completion of session Vital Signs: Heart rate at rest: 61 bpm SPO2 at rest: 96 % Heart rate with activity: 60 bpm SPO2 with activity: 97 % Oxygen LPM: room air Cognitive / Perceptual Assessment: Arousal: Alert Orientation: Oriented x4 (person, place, time, and situation) Following commands: Yes without difficulty Safety Judgement: Good awareness of safety precautions Problem Solving: Able to problem solve independently Behavior: Easy to engage Communication: WNL UE ROM / Strength / Coordination: (A)ROM - Right: WFL throughout shoulder, elbow, wrist, and finger joints Strength - Right: 4/5 shoulder flexion/extension, 4/5 elbow flexion/extension, 4/5 wrist flexion/extension (P)ROM - Left: shoulder flexion to about 140 degrees, elbow flexion/extension WNL, wrist flexion/extension WNL Strength - Left: scapular elevation without resistance, no activation of shoulder, elbow, or wrist flexion/extension. Hand Dominance: Right Coat Operator Strength (Right) good Coat Operator Strength (Left): no activation/flaccid Right Serial Opposition: Decreased rate Left Serial Opposition: Other: no activation RUE on right side of midline [id number]: Intact RUE on left side of midline [id number]-[id number]: Decreased accuracy with correction after one attempt consistently Pt able to track to all 4 quadrants of vision with bilateral eyes without difficulty. Balance: Static sitting balance: good sitting EOB unsupported, pt reported fatigue after sitting EOB aprox 10 min Dynamic sitting balance: fair + sitting EOB unsupported Static standing balance: fair + supported by therapist blocking LLE Dynamic standing balance: fair supported by therapist blocking LLE and initiating movement in LLE Mobility / Transfers: Bed mobility (Components & Assistance): Max A supine to sit EOB to move LLE and sit forward Transfer(s): Max A sit<>stand at EOB supported by therapist blocking LLE Activities of Daily Living / Living Skills: UE dressing: Patient completed upper body dressing of Hospital gown as robe while Sitting on EOB with overall Maximal assistance. Patient required assistance for threading LUE, pulling around back, and fasteners. Lower Body Dressing: Patient completed lower body dressing of Underwear while Sitting on EOB and Standing at EOB with overall Dependent assistance / two or more helpers. Patient required assistance for threading / unthreading RLE underwear, threading / unthreading LLE underwear, pulling underwear over hips, physical assistance for balance, set-up of items, item retrieval, and safety. Footwear: Patient completed footwear of Footie(s) while Sitting on EOB with overall Moderate assistance. Patient required assistance for donning / doffing right sock / footie, donning / doffing left sock / footie, set-up of items, and item retrieval ASSESSMENT: Rehab Potential (Prognosis): good Problem List: Patient has impairments including: Decreased UE ROM , Decreased UE strength, Decreased coordination, Decreased balance, Decreased mobility, Decreased endurance, and Decreased ADL independence. Barriers to Discharge: Decreased endurance, Decreased proprioception, Upper extremity weakness, Lower extremity weakness, and Medical complications PLAN: OT Discharge Recommendations this date: OT RECOMMENDATIONS: OT Recommendation: (S) Inpatient Rehab Facility Patient at risk for: Patient at high risk for: Falls, Injury due to decreased ability to care for self, Readmission, Injury due to reduced functional status, Injury due to balance deficits, Injury athome as patient has not returned to prior level of function, Prolonged dependence for self care tasks Additional recommendation comments: Recommend Inpatient Rehab/Acute Rehab due to: Ability to actively participate in intensive therapy 3 hours/day, 5 days/week or 900 minutes per week, Highly motivated to participate in therapy, Not at baseline due to impaired ability to complete ADLs, Impaired ability to complete functional mobility, Likely to return to the community at discharge with support system in place, Patient and caregiver require specialized skilled training due to new level of function/diagnosis, Requires multiple therapy disciplines to address functional deficits Justification of discharge recommendations flow sheet completed: Yes Frequency of therapy:OT Frequency during current admission: 3-5x/wk Intervention / Education needs: ADL training, Adaptive equipment education, Durable medical equipment education, Balance activities, Functional transfer training, Safety education, UE home exercise program education, Family training as appropriate, and Energy conservation techniques Education provided: Patient and family has been educated on Role of OT, OT plan of care, ADL training, Bed mobility training, Functional transfer training, Balance training, and Safety education. Individual(s) verbalized understanding, demonstrated understanding, and needs ongoing reinforcement. Short Term Goals / Care Plan: Multi-Disciplinary Problems (from Occupational Therapy) [place] Problems [place] [facility] [place]: 12/08/23 Goal Start Date Expected End Date End Date OT [facility] 1 12/08/23 12/15/23 -- Goal Details: Patient will complete HEP of left UE AROM and self-ROM exercises including digits with initial verbal cues one time to increase tolerance for ADLs Goal Start Date Expected End Date End Date OT [facility] 2 12/08/23 12/15/23 -- Goal Details: Patient will complete HEP of scapular mobilization with initial verbal cues one time Goal Start Date Expected End Date End Date OT [facility] 3 12/08/23 12/15/23 -- Goal Details: Patient will complete bathing with mod assist one time Goal Start Date Expected End Date End Date OT [facility] 4 12/08/23 12/15/23 -- Goal Details: Patient will complete UE dressing with min assist one time Goal Start Date Expected End Date End Date OT [facility] 5 12/08/23 12/15/23 -- Goal Details: Patient will complete LE dressing of underwear and socks with mod assist one time Goal Start Date Expected End Date End Date OT [facility] 6 12/08/23 12/15/23 -- Goal Details: Patient will complete toilet transfer with min assist one time Goal Start Date Expected End Date End Date OT [facility] 7 12/08/23 12/15/23 -- Goal Details: Patient will complete a functional activity while sitting on EOB with good- balance x4-5 minutes to improve endurance and tolerance for ADLs one time Goal Start Date Expected End Date End Date OT [facility] [place] 12/08/23 12/15/23 -- Goal Details: Patient will complete visual scanning activity in left upper and lower quadrants withinitial verbal cues to address visual deficit one time If this is the last note, consider this the discharge summary Jessica Mendez 12/10/23 Cosigned by Jason Martinez OT at 12/10/2023 4:04 PM RAG 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 * Kenyatta Hummel, MODELING ANALYST - 12/09/2023 2:28 PM CST Physical Therapy PT PROGRESS NOTE PATIENT'S NAME:Gunjan Gtz Jr. :1945 AGE:78 y.o. ROOM:[facility]/[place] [id number] Past Medical History: Diagnosis Date Acute gastric [...] without rupture (HCC) Acute CVA (cerebrovascular accident) ([facility]) TIME IN: 1429 TIME OUT: 1520 SUBJECTIVE Yes MENTAL STATUS/ORIENTATION: Alert and oriented x4 PAIN: Pre-therapy pain level: 0/10 Pain location: n/a Pain intervention: n/a Post-therapy pain level/response to intervention: unchanged OBJECTIVE PRECAUTIONS: fall and bed / chair alarm APPEARANCE/POSTURE: pt sitting in recliner, alarm active, hospital gown & socks, telemetry, andagreeable to therapy. MOBILITY DOCUMENTATION: Bed Mobility/Transfers: Pt transfers mod A sit to/from stand. Gait: Pt amb 15' x2 w/luis rail min A w/close chair follow. Deviations include slow gertrudis, decreased step length, flexed posture, downward gaze, narrow SHANA, poor L foot placement, assist to advanceL LE, slightly unsteady during stand to sit transfer post amb w/mod vc for sequencing as well. TREATMENT: Pt performed L LE seated HEP x15 reps SPV to mod A for exs. APPEARANCE/POSTURE (end of session): pt appearance otherwise unchanged from PT arrival in room EDUCATION:therapeutic exercises , functional transfer training, gait training , and safety RESPONSE TO EDUCATION: needs reinforcement ASSESSMENT Activity tolerance/response to P.T.: Pt tolerated amb w/luis rail but requiring second person for close chair follow for safety at this time. Barriers to learning: Language and Physical Barriers to discharge: Limited safety awareness, Communication deficit, Decreased endurance, Decreased proprioception, Upper extremity weakness, Lower extremity weakness, Long standing deficits, Medical complications, and Stairs at home Patient continues progressing toward previously set goals which remain appropriate at this time. PLAN PT Discharge Recommendations this date: PT Recommendation/Plan: Inpatient Rehab Facility Patient at high risk for: Falls, Readmission, Injury due to decreased ability to care for self, Injury due to reduced functional status, Injury due to impaired cognition, Injury due to balance deficits, Injury at home as patient has not returned to prior level of function, Developing impaired skin integrity, Cognitive decline due to decreased social participation, Prolonged dependence for self care tasks, Improper use of DME Recommend Inpatient Rehab/Acute Rehab due to: Ability to actively participate in intensive therapy 3 hours/day, 5 days/week or 900 minutes per week, Highly motivated to participate in therapy, Not atbaseline due to impaired ability to complete ADLs, Impaired ability to complete functional mobility, Likely to return to the community at discharge with support system in place, Requires greater than25% physical assistance with most mobility tasks, Requires greater than 25% physical assistance with most ADL tasks, Requires multiple therapy disciplines to address functional deficits, Patient and caregiver require specialized skilled training due to new level of function/diagnosis, Requires skilled therapy interventions to address neurological deficits PT Frequency during current admission: 3-5x/wk CARE PLAN Multi-Disciplinary Problems (from Physical Therapy) Active Problems Problem: PT Misc Start Date: 12/08/23 Goal Start Date Expected End Date End Date Patient to perform bed mobility with supervision. 12/08/23 12/15/23 -- progressing Goal Start Date Expected End Date End Date Patient to perform functional transfers with most appropriate device supervision. 12/08/23 12/15/23 -- progressing Goal Start Date Expected End Date End Date Patient to ambulate 50 feet with most appropriate device supervision. 12/08/23 12/15/23 -- progressing Goal Start Date Expected End Date End Date Patient to perform standing balance activity x5 minutes with supervision and UE support as needed 12/08/23 12/15/23 -- progressing Goal Start Date Expected End Date End Date Patient to perform HEP for BLE strength and balance with at least 10 reps each. 12/08/23 12/15/23 -- progressing If this is the last note, please consider this the discharge summary. Cosigned by Torri Lopez, PT at 12/10/2023 8:57 AM RAG 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 * Paresh Prieto, REGISTERED MEDICAL ASSISTANT - 12/09/2023 2:19 PM CST SPEECH LANGUAGE PATHOLOGY PROGRESS NOTE Patient's Name: Gunjan Gtz Jr. : 1945 Age: 78 y.o. Time In: 13:51 Time Out: 14:15 Patient Active Problem List Diagnosis Primary osteoarthritis of both knees Subchondral insufficiency fracture of condyle of left femur (CMS/HCC) ([facility]) Closed fracture of left tibial plateau with [...] Skin lesion of breast Edema Intermittent claudication ([facility]) Iron deficiency anemia Peripheral vascular disease ([facility]) Pain due to total right knee replacement (CMS/HCC) ([facility]) Hamstring tendinitis of right thigh Quadriceps weakness [...] Infrarenal abdominal aortic aneurysm (AAA) without rupture ([facility]) Acute CVA (cerebrovascular accident) ([facility]) Past Medical History: Diagnosis Date Acute gastric ulcer without hemorrhage or perforation Ulcer, gastric, acute - (Added by TW Conv) Alzheimer's dementia ([facility]) Asthma Back pain Cataract Closed fracture of left tibial plateau with delayed healing Closed fracture of right tibial plateau with delayed healing Closed nondisplaced osteochondral fracture of left patella with delayed healing Closed osteochondral fracture of patella, right, with delayed healing, subsequent encounter Clotting disorder (CMS/HCC) ([facility]) Complex tear of medial meniscus of left knee as current injury Complex tear of medial meniscus of right knee as current injury Cramps of lower extremity Diverticulitis of colon Easy bruisability Fatigue Frequent urination Gastroesophageal reflux disease GERD Hypothyroidism Incontinence of urine Muscle weakness Osteoarthritis Osteoarthritis Peptic ulcer Peptic ulcer disease Seizures ([facility]) 1997 last seizure in 1997 SOB [...] Patient awake and cooperative, sitting up in recliner. Reports movement in left leg today. PAIN: Pre Therapy Pain Level: 0/10 Pain Location: N/A Pain Intervention: N/A Post Therapy Pain Level/Response to Intervention: 0/10 OBJECTIVE PRECAUTIONS: Fall, Seizure SWALLOWING: Swallow not assessed by REGISTERED MEDICAL ASSISTANT. Patient passed nursing dysphagia screener on admission. COGNITION: Cognitive deficits in insight and short term memory. COMMUNICATION: Mild dysarthric speech TREATMENT ACTIVITIES: RIPA-2 initiated. Short term recall task with 80% accuracy; Temporal orientation with 100% accuracy EDUCATION: PATIENT/FAMILY EDUCATION: Patient and patient's with questions regarding stroke recovery and rehab. Educated on stroke, recovery, rehab and goals. Response to Education: Understanding verbalized ASSESSMENT Activity Tolerance/Response to S.T.: Tolerated speech therapy session with no complaints Barriers to learning: Cognition Current status: Patient with mild dysarthric speech and decreased insight into deficits. Progress toward goals: Patient continues to progress toward previously set goals which remain appropriate at this time. PLAN Multi-Disciplinary Problems (from Speech Therapy) Active Problems Problem: Cognitive/Linguistics Start Date: 12/09/23 Goal Start Date Expected End Date End Date STG - Patient will recall new information 12/09/23 12/16/23 -- Goal Details: With 80% accuracy Goal Start Date Expected End Date End Date STG - Patient will participate in further assessment of cognitive-linguistic skills 12/09/23 12/16/23 -- Problem: Communication/Motor Speech Start Date: 12/09/23 Goal Start Date Expected End Date End Date STG - Patient will participate in oral-motor exercises to improve strength 12/09/23 12/16/23 -- Frequency of Treatment: BID, 5xs weekly Recommendations: Recommend acute rehab pending qualifying criteria. If this is the last note, consider this the discharge summary. 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 * Hank Lianet Francesca EDUCATIONAL DIAGNOSTICIAN - 12/09/2023 12:10 PM CST Neurology Daily Progress Note Subjective Chief complaint of stroke. Interval History: 12/08/2023 - The patient is seen and examined laying in bed. He is drowsy but will wake up and follow commands. He has a left sided facial droop and weakness of his left arm and leg. Family at bedside. MRI brain and ECHO completed today. 12/09/2023 - The patient is seen and examined after working with therapy. 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 Heis able to move the left leg though weakness is present. He continues to have a left facial droop as well. The nurse noted that he had some trouble reading and looking out the window today and statesthat he does have double and blurry vision with distance at times. Review of Systems Constitutional: Negative for chills, decreased appetite, diaphoresis and fever. HENT: Negative for congestion, hearing loss and hoarse voice. Eyes: Positive for blurred vision and double vision. Negative for visual halos. Cardiovascular: Negative for chest pain and leg swelling. Respiratory: Negative for cough and shortness of breath. Skin: Negative for rash. Gastrointestinal: Negative for bowel incontinence, nausea and vomiting. Genitourinary: Negative for bladder incontinence. Neurological: Positive for focal weakness. Negative for brief paralysis, difficulty with concentration, disturbances in coordination, excessive daytime sleepiness, dizziness, headaches, light-headedness, loss of balance, numbness, paresthesias, seizures, sensory change, tremors, vertigo and weakness. Psychiatric/Behavioral: Negative for altered mental status, hallucinations, memory loss and suicidal ideas. Current Facility-Administered Medications Medication Dose Route Frequency Provider Last Rate Last Admin acetaminophen (TYLENOL) tablet 650 mg 650 mg oral Q4H PRN Bernard Casillas MD 650 mg at 12/07/232022 Or acetaminophen (TYLENOL) 32 mg/mL oral liquid 650 mg 650 mg feeding tube Q4H PRN Bernard Casillas MD Or acetaminophen (TYLENOL) suppository 650 mg 650 mg rectal Q4H PRN Bernard Casillas MD albuterol HFA (PROVENTIL HFA,VENTOLIN HFA,PROAIR HFA) 90 mcg/actuation inhaler 2 puff 2 puff inhalation Q4H PRN (RT) Gaby Doyle MD aspirin chewable tablet 81 mg 81 mg oral Daily Gaby Doyle MD 81 mg at 12/09/23 09 Carrier Fluids for Secondary Infusion - 0.9% Sodium Chloride 30 mL intravenous PRN Gaby Doyle MD dextrose oral liquid liquid 15 g 15 g oral Q15 Min PRN Gaby Doyle MD Or dextrose (D10W) 10% bolus 250 mL 250 mL intravenous Q15 Min PRN Gaby Doyle MD donepeziL (ARICEPT) tablet 10 mg 10 mg oral Nightly Bernard Casillas MD 10 mg at 12/08/232099 enoxaparin (LOVENOX) syringe 40 mg 40 mg subcutaneous Daily-2099 Gaby Doyle MD fluticasone furoate-vilanteroL (BREO ELLIPTA) 100-25 mcg/dose inhaler 1 puff 1 puff inhalation Daily (RT) Gaby Doyle MD gabapentin (NEURONTIN) capsule 300 mg 300 mg oral TID Bernard Casillas MD 300 mg at 12/09/23 09 glucagon injection 1 mg 1 mg intramuscular Q30 Min PRN Gaby Doyle MD hydrALAZINE (APRESOLINE) injection 10 mg 10 mg intravenous Q15 Min PRN Gaby Doyle MD levothyroxine (SYNTHROID) tablet 150 mcg 150 mcg oral Daily - 0600 Bernard Casillas MD 150 mcg at 12/09/[address] (PROTONIX) extended release tablet 20 mg 20 mg oral Daily Gaby Doyle MD 20 mg at 12/09/23 09 ramelteon (ROZEREM) tablet 8 mg 8 mg oral Nightly PRN Bernard Casillas MD rosuvastatin (CRESTOR) tablet 10 mg 10 mg oral Daily Bernard Casillas MD 10 mg at 12/09/23 09 sodium chloride 0.9% flush 0.5-20 mL 0.5-20 mL intra-catheter Q8H AIMEE Gaby Doyle MD 10 mL at 12/09/23 0514 sodium chloride 0.9% flush 0.5-20 mL 0.5-20 mL intra-catheter PRN Gaby Doyle MD tamsulosin (FLOMAX) extended release capsule 0.4 mg 0.4 mg oral Nightly Bernard Casillas MD 0.4 mg at 12/08/23 2100 tiZANidine (ZANAFLEX) tablet 2 mg 2 mg oral TID PRN Dioni Orosco MD 2 mg at 12/08/23 1019 Objective Vitals: 24hr Min/Max: Temp Min: 36.3 ??C (97.3 ??F) Max: 36.8 ??C (98.2 ??F) Pulse Min: 52 Max: 93 BP Min: 102/67 Max: 160/98 Resp Min: 11 Max: 24 SpO2 Min: 95 % Max: 100 % Most Recent: Vitals: 12/09/23 0803 BP: 137/87 Pulse: 65 Resp: 19 Temp: 36.4 ??C (97.5 ??F) SpO2: 99% Physical Exam Vitals and nursing note reviewed. HENT: Head: Normocephalic and atraumatic. Eyes: Extraocular Movements: Extraocular movements intact and EOM normal. Pupils: Pupils are equal, round, and reactive to light. Cardiovascular: Rate and Rhythm: Normal rate. Pulmonary: Effort: Pulmonary effort is normal. Abdominal: Palpations: Abdomen is soft. Musculoskeletal: General: Normal range of motion. Cervical back: Normal range of motion. Right lower leg: No edema. Left lower leg: No edema. Skin: General: Skin is warm. Findings: No rash. Neurological: Mental Status: He is alert and oriented to person, place, and time. Coordination: Ckyhrq-Yrft-Pmpjdt Test abnormal. Psychiatric: Mood and Affect: Mood normal. Speech: Speech normal. Behavior: Behavior normal. Neurologic Exam Mental Status Oriented to person, place, and time. Oriented to person. Oriented to place. Oriented to time. Oriented to year and month. Attention: normal. Concentration: normal. Speech: speech is normal Level of consciousness: alert Knowledge: good. Normal comprehension. Cranial Nerves CN II Visual white full to confrontation. CN III, IV, Pupils are equal, round, and reactive to light. Extraocular motions are normal. Right pupil: Shape: regular. Reactivity: brisk (with distance). Left pupil: Shape: regular. Reactivity: brisk. CN III: no CN III palsy CN : no CN palsy Nystagmus: none Diplopia: bilateral CN V Facial sensation intact. CN VII Right facial weakness: none Left facial weakness: central CN VIII CN VIII normal. Hearing: intact CN IX, X CN IX normal. CN X normal. CN XI CN XI normal. CN XII CN XII normal. Motor Exam Muscle bulk: normal Overall muscle tone: normal Strength Strength 5/5 except as noted. There is a left hemiparesis with a power of 4/5 and there is a drift of the left leg. Today the patient is able to move the left shoulder but cannot lift the arm againstgravity. Sensory Exam Light touch normal. Gait, Coordination, and Reflexes Coordination Finger to nose coordination: abnormal Tremor Resting tremor: absent Intention tremor: absent Reflexes Right plantar: normal Left plantar: normal Right ankle clonus: absent Left ankle clonus: absent I/O last 2 completed shifts: In: 960.5 [P.O.:560; I.V.:400.5] Out: 1250 [Urine:1250] I/O this shift: In: - Out: 200 [Urine:200] Lab/Radiology/Diagnostic Review: 12/08/2023 Lipid panel LDL 110 12/08/2023 CT head shows cerebral atrophy and small vessel disease, in keeping with the patient's age. No bleed or mass. 12/08/2023 MRI brain shows acute infarct posterior limb internal capsule right side. Underlying atrophy and small vessel disease. No hemorrhagic changes identified. 12/08/2023 CT head shows no definitive acute intracranial findings. Chronic microvascular ischemic changes and volume loss. 12/08/2023 ECHO shows no thrombus or vegetation. EF is measured at 62%. 12/09/2023 CBC unremarkable 12/09/2023 BMP unremarkable ASSESSMENTPLAN: Acute right cerebral infarction status post thrombolytic therapy. His stroke risk factors include age as well as dyslipidemia. He will be on the stroke and tPA pathway. There was concern this eveningfor this patient's stroke symptoms becoming worse. Recommendations: CT head was negative for hemorrhage, okay to continue Aspirin 81 mg daily. Continue Rosuvastatin 40 mg daily for goal LDL less than 70. The internal capsule stroke can progress and is recommended to continue supportive care of his stroke symptoms. Continue adequate hydration and control of blood pressure. Continue to control blood pressure for a goal no lower than 130/80 and no higher than 185/110. Continue aggressive PT/OT/ST. Thank you for allowing us to participate in your patient's care. We will follow this patient with you as often as needed. Lianet Mckinney NP Cosigned by Nayan Mahajan II, MD at 12/09/2023 4:16 PM RAG 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 * Aminta Vera NP - 12/09/2023 11:33 AM CST General Medicine Daily Progress PCP: Wolfgang Serrano [phone] Admit Date: 12/07/2023 12:52 PM Hospital Day: SUBJECTIVE Presenting History Gunjan Gtz Jr. is a 78 y.o. male with a past medical history of seizure, asthma, GERD, GE junction diverticulum, hyperlipidemia, hypothyroidism and AAA who presented to the ED via EMS from the parking lot on , complaining of sudden onset of difficulty with his speech, left arm weakness, left leg weakness. Patient was driving his car and had pulled up to the parking lot to see his orthopedic surgeon today, when he realized that he had developed weakness in the left hand and arm. He noticed he had trouble reaching up to put the blinker on, and then when he tried to open the car door with his left hand he struggled to do this because the arm was weak. He tried to get up out of the car and realized his left leg was weak also. He slid to the ground, but he was unable to help himself back up by pulling himself up on the open car door. He sat himself back down in the car, called his orthopedic surgeon's office, and they called 911. He had an NIH stroke scale of 8 his blood pressureon admission 130/84 mm Hg respiratory rate 14 per minute pulse rate 72 per minute temperature 98.6?? F. CT of the head CTA of the head and neck showed no acute ischemia or large vessel occlusion. No significant stenosis of the carotid vessels. Interval History: 12/07: Patient admitted to the ICU acute right cerebral ischemic stroke. He is s/p TNK at 1330 on 12/07/2023. Neuro deficits improving. 12/08: Pt with newly worsened left facial droop and LUE weakness this afternoon after 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 I assessed pt and he has more pronounced facial droop and now 3/5 instead of 4/5 strength in LUE. Stat noncon CTH ordered andshowed no bleeding. I spoke with Dr. Mahajan neurologist, who advised that internal capsule stroke can progress but there is no specific treatment for it, ok to start ASA and ok to transfer to floor with Q4H neuro checks.Patient updated regarding the results and discussion. : Patient seen and examined. Sitting in chair. Awake and alert x3. Family at bedside. Denies any complaints. Left facial droop. Speech clear and understandable. Left-sided weakness. OBJECTIVE Vitals: 24hr Min/Max: Temp Min: 36.3 ??C (97.3 ??F) Max: 36.8 ??C (98.2 ??F) Pulse Min: 52 Max: 93 BP Min: 102/67 Max: 151/85 Resp Min: 11 Max: 24 SpO2 Min: 96 % Max: 100 % Most Recent : Vitals: 12/09/23 0449 12/09/23 0459 12/09/23 0715 12/09/23 0803 BP: 141/80 137/87 BP Location: Left arm Right leg Patient Position: Lying Lying Pulse: 62 74 54 65 Resp: 18 19 Temp: 36.3 ??C (97.3 ??F) 36.4 ??C (97.5 ??F) TempSrc: Oral Oral SpO2: 99% 99% Weight: Height: I/O last 2 completed shifts: In: 960.5 [P.O.:560; I.V.:400.5] Out: 1250 [Urine:1250] Intake/Output Summary (Last 24 hours) at 12/09/2023 1133 Last data filed at 12/09/2023 0915 Gross per 24 hour Intake 360 ml Output 1000 ml Net -640 ml Physical Exam: General: This is a 78 y.o. male in no acute distress. Head: Normocephalic, atraumatic. Eyes: PERRLA, EOMI bilaterally. No conjunctival injection. Nose: Nasal cavity is patent. Throat is clear. Mucus membranes are pink and moist without bleeding. Neck: Supple. No JVD. No lymphadenopathy. Trachea is in the midline position. Lungs: Clear breath sounds bilaterally. No wheezing auscultated. Heart: S1 and S2. No murmur auscultated. Abdomen: Round, soft, nontender. Bowel sounds are present in all four quadrants. Extremities: No cyanosis, clubbing or edema. Neuro: Patient is awake and alert x 3. Speech is clear and coherent. Left facial droop. Left arm hemiparesis. Patient able to move left lower extremity although he is weak. Tongue protrusion is adequate patient able to move the tongue from side to side. There is bruising noted on the right undersurface of the tongue. Psychiatric: Normal mood and affect. Behavior is normal. Skin: Warm and dry. No rashes or lesions. ACTIVE SCHEDULED & PRN MEDS aspirin, 81 mg, Daily donepeziL, 10 mg, Nightly enoxaparin, 40 mg, Daily-2100 fluticasone furoate-vilanteroL, 1 puff, Daily (RT) gabapentin, 300 mg, TID levothyroxine, 150 mcg, Daily - [address], 20 mg, Daily rosuvastatin, 10 mg, Daily sodium chloride 0.9%, 0.5-20 mL, Q8H AIMEE tamsulosin, 0.4 mg, Nightly acetaminophen, 650 mg, Q4H PRN Or acetaminophen, 650 mg, Q4H PRN Or acetaminophen, 650 mg, Q4H PRN albuterol HFA, 2 puff, Q4H PRN (RT) sodium chloride 0.9%, 30 mL, PRN dextrose, 15 g, Q15 Min PRN Or dextrose, 250 mL, Q15 Min PRN glucagon, 1 mg, Q30 Min PRN hydrALAZINE, 10 mg, Q15 Min PRN ramelteon, 8 mg, Nightly PRN sodium chloride 0.9%, 0.5-20 mL, PRN tiZANidine, 2 mg, TID PRN Continuous Infusions: LAB REVIEW Recent Labs Lab Units 12/09/23 0612/07/23204412/07/23 1330 WBC K/cumm 8.6 7.9 6.9 HEMOGLOBIN g/dL 13.1 13.1 12.5* HEMATOCRIT % 40.3 39.7 37.7* PLATELETS K/cumm 210 224 216 NEUTROS PCT % 64.1 55.4 52.3 LYMPHS PCT % 23.6 30.7 31.7 MONOS PCT % 8.2 8.8 11.0 EOS PCT % 2.9 4.2 4.2 Recent Labs Lab Units 12/09/23 0612/08/23 1635 12/08/23 0726 12/08/23 0004 12/07/23204412/07/23 1652 12/07/23 1330 SODIUM mmol/L 140 -- -- -- 137 -- 139 POTASSIUM PLASMA mmol/L 4.2 -- -- -- 4.1 -- 4.8 CHLORIDE mmol/L 106 -- -- -- 103 -- 105 CO2 mmol/L 27 -- -- -- - 24 ANIONGAP mmol/L 7 -- -- -- 7 -- 10 GLUCOSE mg/dL 117 -- -- -- 107 -- 115 POC GLUCOSE MONITOR mg/dL -- 109 105 < > -- < > -- BUN SERUM mg/dL 18 -- -- -- 16 -- 19 CREATININE mg/dL 1.14 -- -- -- 1.39* -- 1.50* CALCIUM mg/dL 8.9 -- -- -- 9.0 -- 8.7 ALBUMIN g/dL -- -- -- -- 3.6 -- 3.4* ALK PHOS Units/L -- -- -- -- 107 -- 93 ALT Units/L -- -- -- -- 13 -- 14 AST Units/L -- -- -- -- 20 -- 29 BILIRUBIN TOTAL mg/dL -- -- -- -- 0.4 -- 0.2 < > = values in this interval not displayed. LAB TREND CBC: Lab Results Component Value Date WBC 8.6 12/09/2023 WBC 7.9 12/07/2023 WBC 6.9 12/07/2023 HGB 13.1 12/09/2023 HGB 13.1 12/07/2023 HGB 12.5 (L) 12/07/2023 HCT 40.3 12/09/2023 HCT 39.7 12/07/2023 HCT 37.7 (L) 12/07/2023 BMP: Lab Results Component Value Date SODIUM 140 12/09/2023 SODIUM 137 12/07/2023 SODIUM 139 12/07/2023 POTASSIUM 4.2 12/09/2023 POTASSIUM 4.1 12/07/2023 POTASSIUM 4.8 12/07/2023 CHLORIDE 106 12/09/2023 CREATININE 1.14 12/09/2023 CREATININE 1.39 (H) 12/07/2023 CREATININE 1.50 (H) 12/07/2023 CALCIUM 8.9 12/09/2023 CALCIUM 9.0 12/07/2023 CALCIUM 8.7 12/07/2023 Lab/Radiology/Diagnostic Review: Recent Results (from the past 72 hour(s)) CBC with auto differential Collection Time: 12/07/23 1:30 PM Result Value Ref Range WBC 6.9 3.8 - 9.9 K/cumm Hgb 12.5 (L) 13.0 - 17.5 g/dL Hct 37.7 (L) 38.9 - 50.3 % Plt 216 150 - 400 K/cumm MPV 10.3 9.1 - 12.3 fL RBC 3.81 (L) 4.30 - 5.80 M/cumm MCV 99.0 (H) 81.3 - 96.4 fL MCH 32.8 27.1 - 33.3 pg MCHC 33.2 32.3 - 35.7 g/dL RDW CV 13.3 11.1 - 14.9 % RDW SD 48.4 (H) 35.7 - 48.1 fL NRBC abs 0.00 0.00 - 0.01 K/cumm Comprehensive metabolic panel Collection Time: 12/07/23 1:30 PM Result Value Ref Range Sodium 139 135 - 145 mmol/L Potassium, pl 4.8 3.3 - 4.9 mmol/L Chloride 105 97 - 110 mmol/L CO2 24 22 - 32 mmol/L Anion gap 10 2 - 15 mmol/L BUN 19 6 - 25 mg/dL Creatinine 1.50 (H) 0.80 - 1.30 mg/dL Glucose 115 70 - 199 mg/dL Calcium 8.7 8.5 - 10.3 mg/dL Bilirubin, total 0.2 0.1 - 1.2 mg/dL Protein, pl 6.2 (L) 6.5 - 8.5 g/dL Albumin 3.4 (L) 3.5 - 5.0 g/dL Alk phos 93 40 - 130 Units/L ALT 14 7 - 55 Units/L AST 29 10 - 50 Units/L Protime-INR Collection Time: 12/07/23 1:30 PM Result Value Ref Range PT 11.8 10.3 - 13.7 sec INR 1.04 0.90 - 1.20 aPTT Collection Time: 12/07/23 1:30 PM Result Value Ref Range aPTT 32 28 - 38 sec Troponin T high-sensitivity series (baseline, 2hr, 4hr, 6hr) Collection Time: 12/07/23 1:30 PM Result Value Ref Range Trop T hs 22 <=22 ng/L Differential, auto Collection Time: 12/07/23 1:30 PM Result Value Ref Range Neutrophil abs 3.6 1.5 - 6.5 K/cumm Imm gran abs 0.0 0.0 - 0.1 K/cumm Lymphocyte abs 2.2 0.8 - 3.3 K/cumm Monocyte abs 0.8 0.2 - 0.8 K/cumm Eosinophil abs 0.3 0.0 - 0.5 K/cumm Basophil abs 0.1 0.0 - 0.1 K/cumm Neutrophil pct 52.3 % Imm gran pct 0.1 % Lymphocyte pct 31.7 % Monocyte pct 11.0 % Eosinophil pct 4.2 % Basophil pct 0.7 % eGFR Collection Time: 12/07/23 1:30 PM Result Value Ref Range eGFR 47 mL/min/1.73 m2 Troponin T high-sensitivity 2-hour Collection Time: 12/07/23 2:50 PM Result Value Ref Range Trop T hs 24 (H) <=22 ng/L Trop T hs delta See Comment ng/L Trop T hs pct delta See Comment % Trop T hs interp See Comment Urinalysis reflex to microscopic and culture Urine Collection Time: 12/07/23 3:22 PM Specimen: Urine Result Value Ref Range Color, ur Straw Yellow Clarity, ur Clear Clear Specific gravity, ur 1.038 (H) 1.003 - 1.030 pH, urine 6.0 Protein, ur ql Negative Negative Glucose, ur ql Negative Negative Ketones, ur Negative Negative Bilirubin, ur Negative Negative Blood, ur Negative Negative Urobilinogen, ur <2.0 <2.0 mg/dL Nitrite, ur Negative Negative Leukocyte esterase, ur 2+ (A) Negative UA reflex comment Reflex to microscopic UA will be performed. Urinalysis, microscopic only Collection Time: 12/07/23 3:22 PM Result Value Ref Range WBC, ur 6-10 (A) 0 - 5 /HPF RBC, ur 3-5 (A) 0 - 2 /HPF Mucous, ur Present (A) Culture Reflex Comment Reflex conditions for urine culture (WBC >10) not met. POCT glucose Collection Time: 12/07/23 4:52 PM Result Value Ref Range Glucose, POC 97 70 - 199 mg/dL Troponin T high-sensitivity 4-hour Collection Time: 12/07/23 5:58 PM Result Value Ref Range Trop T hs 18 <=22 ng/L Trop T hs delta -4 ng/L Trop T hs interp Insignificant Infection Prevention MRSA Only (Staphylococcus aureus) PCR Nasal Collection Time: 12/07/23 5:58 PM Specimen: Nasal Result Value Ref Range PCR Scrn, Methicillin resistant Staphylococcus aureus (MRSA) Not Detected Not Detected Troponin T high-sensitivity 6-hour Collection Time: 12/07/23 7:34 PM Result Value Ref Range Trop T hs 24 (H) <=22 ng/L Trop T hs delta 2 ng/L Trop T hs interp Insignificant POCT glucose Collection Time: 12/07/23 7:57 PM Result Value Ref Range Glucose, POC 102 70 - 199 mg/dL Fibrinogen Collection Time: 12/07/23 8:45 PM Result Value Ref Range Fibrinogen 438 (H) 170 - 400 mg/dL Hemoglobin A1c Collection Time: 12/07/23 8:45 PM Result Value Ref Range Hgb A1C 5.6 4.0 - 5.6 % Estimated Average Glucose 114 mg/dL Lipid panel Collection Time: 12/07/23 8:45 PM Result Value Ref Range Cholesterol 186 30 - 199 mg/dL Triglycerides 69 <=149 mg/dL HDL 59 >=40 mg/dL LDL, calculated 113 <=129 mg/dL Non-HDL Cholesterol 127 mg/dL Chol/HDL ratio 3 CBC with auto differential Collection Time: 12/07/23 8:45 PM Result Value Ref Range WBC 7.9 3.8 - 9.9 K/cumm Hgb 13.1 13.0 - 17.5 g/dL Hct 39.7 38.9 - 50.3 % Plt 224 150 - 400 K/cumm MPV 10.3 9.1 - 12.3 fL RBC 4.04 (L) 4.30 - 5.80 M/cumm MCV 98.3 (H) 81.3 - 96.4 fL MCH 32.4 27.1 - 33.3 pg MCHC 33.0 32.3 - 35.7 g/dL RDW CV 13.3 11.1 - 14.9 % RDW SD 48.4 (H) 35.7 - 48.1 fL NRBC abs 0.00 0.00 - 0.01 K/cumm Phosphorus Collection Time: 12/07/23 8:45 PM Result Value Ref Range Phosphorus, pl 3.1 2.3 - 4.5 mg/dL Magnesium Collection Time: 12/07/23 8:45 PM Result Value Ref Range Magnesium 2.0 1.4 - 2.5 mg/dL Comprehensive metabolic panel Collection Time: 12/07/23 8:45 PM Result Value Ref Range Sodium 137 135 - 145 mmol/L Potassium, pl 4.1 3.3 - 4.9 mmol/L Chloride 103 97 - 110 mmol/L CO2 27 22 - 32 mmol/L Anion gap 7 2 - 15 mmol/L BUN 16 6 - 25 mg/dL Creatinine 1.39 (H) 0.80 - 1.30 mg/dL Glucose 107 70 - 199 mg/dL Calcium 9.0 8.5 - 10.3 mg/dL Bilirubin, total 0.4 0.1 - 1.2 mg/dL Protein, pl 6.7 6.5 - 8.5 g/dL Albumin 3.6 3.5 - 5.0 g/dL Alk phos 107 40 - 130 Units/L ALT 13 7 - 55 Units/L AST 20 10 - 50 Units/L Calcium, ionized, whole blood Collection Time: 12/07/23 8:45 PM Result Value Ref Range Ca, ionized, bld 4.80 4.50 - 5.10 mg/dL Differential, auto Collection Time: 12/07/23 8:45 PM Result Value Ref Range Neutrophil abs 4.4 1.5 - 6.5 K/cumm Imm gran abs 0.0 0.0 - 0.1 K/cumm Lymphocyte abs 2.4 0.8 - 3.3 K/cumm Monocyte abs 0.7 0.2 - 0.8 K/cumm Eosinophil abs 0.3 0.0 - 0.5 K/cumm Basophil abs 0.1 0.0 - 0.1 K/cumm Neutrophil pct 55.4 % Imm gran pct 0.3 % Lymphocyte pct 30.7 % Monocyte pct 8.8 % Eosinophil pct 4.2 % Basophil pct 0.6 % eGFR Collection Time: 12/07/23 8:45 PM Result Value Ref Range eGFR 52 mL/min/1.73 m2 POCT glucose Collection Time: 12/08/23 12:04 AM Result Value Ref Range Glucose, POC 105 70 - 199 mg/dL Lipid panel Collection Time: 12/08/23 4:10 AM Result Value Ref Range Cholesterol 182 30 - 199 mg/dL Triglycerides 86 <=149 mg/dL HDL 55 >=40 mg/dL LDL, calculated 110 <=129 mg/dL Non-HDL Cholesterol 127 mg/dL Chol/HDL ratio 3 POCT glucose Collection Time: 12/08/23 4:43 AM Result Value Ref Range Glucose, POC 112 70 - 199 mg/dL POCT glucose Collection Time: 12/08/23 7:26 AM Result Value Ref Range Glucose, POC 105 70 - 199 mg/dL POCT glucose Collection Time: 12/08/23 4:35 PM Result Value Ref Range Glucose, POC 109 70 - 199 mg/dL CBC with auto differential Collection Time: 12/09/23 6:19 AM Result Value Ref Range WBC 8.6 3.8 - 9.9 K/cumm Hgb 13.1 13.0 - 17.5 g/dL Hct 40.3 38.9 - 50.3 % Plt 210 150 - 400 K/cumm MPV 10.4 9.1 - 12.3 fL RBC 4.08 (L) 4.30 - 5.80 M/cumm MCV 98.8 (H) 81.3 - 96.4 fL MCH 32.1 27.1 - 33.3 pg MCHC 32.5 32.3 - 35.7 g/dL RDW CV 13.1 11.1 - 14.9 % RDW SD 47.3 35.7 - 48.1 fL NRBC abs 0.00 0.00 - 0.01 K/cumm Basic metabolic panel Collection Time: 12/09/23 6:19 AM Result Value Ref Range Sodium 140 135 - 145 mmol/L Potassium, pl 4.2 3.3 - 4.9 mmol/L Chloride 106 97 - 110 mmol/L CO2 27 22 - 32 mmol/L Anion gap 7 2 - 15 mmol/L BUN 18 6 - 25 mg/dL Creatinine 1.14 0.80 - 1.30 mg/dL Glucose 117 70 - 199 mg/dL Calcium 8.9 8.5 - 10.3 mg/dL Magnesium Collection Time: 12/09/23 6:19 AM Result Value Ref Range Magnesium 1.9 1.4 - 2.5 mg/dL Phosphorus Collection Time: 12/09/23 6:19 AM Result Value Ref Range Phosphorus, pl 3.1 2.3 - 4.5 mg/dL Differential, auto Collection Time: 12/09/23 6:19 AM Result Value Ref Range Neutrophil abs 5.5 1.5 - 6.5 K/cumm Imm gran abs 0.1 0.0 - 0.1 K/cumm Lymphocyte abs 2.0 0.8 - 3.3 K/cumm Monocyte abs 0.7 0.2 - 0.8 K/cumm Eosinophil abs 0.3 0.0 - 0.5 K/cumm Basophil abs 0.1 0.0 - 0.1 K/cumm Neutrophil pct 64.1 % Imm gran pct 0.6 % Lymphocyte pct 23.6 % Monocyte pct 8.2 % Eosinophil pct 2.9 % Basophil pct 0.6 % eGFR Collection Time: 12/09/23 6:19 AM Result Value Ref Range eGFR 65 mL/min/1.[address] Head WO Contrast Result Date: 12/08/2023 Narrative: EXAMINATION: CT HEAD WO CONTRAST DATE: 12/08/2023 3:50 PM HISTORY: Stroke follow-up. COMPARISON: MRI of the brain dated 12/08/2023. TECHNIQUE: Transaxial computed tomographic images of the head were obtained without intravenous contrast. FINDINGS: No mass, mass effect, midline shift, or he morrhage is demonstrated. Yang-white differentiation is well preserved. Mild global volume loss. The orbits, mastoid air cells, and extracalvarial soft tissues are unremarkable. Mild chronic mucosal inflammatory changes of the paranasal sinuses. Extracalvarial soft tissues are unremarkable. Impression: 1. No definitive acute intracranial findings. 2. Chronic microvascular ischemic changesand volume loss. Electronically signed by: Jhonny Smallwood II, D.O. MRI Brain WO Contrast Result Date: 12/08/2023 Narrative: EXAMINATION: MRI BRAIN WO CONTRAST HISTORY: Stroke symptoms 78-year-old man, previous stroke, vascular disease, seizures asthma TECHNIQUE: Multiplanar multisequence spin-echo images obtained FINDINGS: Correlation is made with an MRI dated 02/14/2020 and a CAT scan dated today's date. Independent data set. Stable involutional changes with large ventricles and sulci. There is an area of restricted diffusion in the posterior limb of the internal capsule on the right side, consistent with an acute infarct. No other restricted diffusion is seen. T1-weighted images demonstrate no mass effect. FLAIR images demonstrate T2 hyperintensity in the posterior limb of internal capsule on the right side as well as areas of T2 hyperintensity in the periventricular and subcortical deep white matter consistent with chronic microvascular disease. T2- weighted images demonstrate normal flow voids within the benton of [place]. The brainstem and cerebellar hemispheres are normal. Bilateral cataractsurgery. The deep venous sinuses appear to be patent. Susceptibility images demonstrate no hemorrhagic changes. Craniovertebral junction normal. Pituitary fossa normal. Impression: Acute infarct posterior limb internal capsule right side. Underlying atrophy and small vessel disease. No hemorrhagic changes identified Electronically signed by: Beka Draper M.D. Transthoracic Echo (TTE) Complete W Doppler/CF Result Date: 12/08/2023 Narrative: [place] [address] Echocardiogram Report Patient Name: GUNJAN GTZ : 1945 Study Date: 12/08/2023 12:52:29 PM Gender: M Tech: BE Location: [id number] Ref Provider: MAXI CARRION Height(Cm): 180 BSA: 2.27 Weight(Kg): 103 Heart Rate: 60 BP: 144/72 Quality: Good Order Provider: MAXI CARRION PROCEDURES: Echocardiographic Report: Transthoracic echocardiogram with 2D, M-Mode, and color Doppler examination with saline contrast study. INDICATIONS: Acute CVA. Measurements: 2D/M Mode Doppler Measurement Value Normal Range Measurement Value Normal Range EF Teich 2D 60.1 [ 52.0 - 72.0 ] percent OH Vmax 2.12 cm2 EF Mod 4C 63.3 percent AV Mean PG 5 mmHg LVIDd 2D 3.84 [ 4.20 - 5.80 ] cm AV Peak Anselmo 1.49 [ 1.00 - 1.70 ] m/s LVIDs 2D 2.63 [ 2.50 - 4.00 ] cm AV VTI 28.26 cm LVPWd 2D 0.92 [ 0.60 - 1.00 ] cm LVOT Diam 2.28 cm IVSd 2D 1.27 [ 0.60 - 1.00 ] cm LVOT Peak Anselmo 0.78 [ 0.70 - 1.10 ] m/s LA Volume Index 30.85 [ 16.00 - 34.00 ] cc/m2 LVOT VTI 15.83 cm MV E Peak Anselmo 0.51 [ 0.60 - 1.30 ] m/s MV A Peak Anselmo 0.76 [ 1.00 - 1.20 ] m/s MV Mean PG 1 mmHg MV Decel Time 323 [ 104 - 258 ] msec PV Peak Anselmo 1.53 [ 0.40 - 0.80 ] m/s TR Peak Anselmo 2.07 [ 1.00 - 2.80 ] m/s TR Peak PG 17 mmHg E` 0.05 m/s E/E` 9.70 Measurement Value Normal Range Measurement Value Normal Range 2D/M Mode Doppler - FINDINGS: Atrial Septum: Normal atrial septum. Left Ventricle: Normal left ventricular size. Mild concentric left ventricular hypertrophy. Impaired diastolic relaxation Grade I. Ejection fraction is measured at 62 %. Left Atrium: The left atrium is normal in size. Right Ventricle: Normal right ventr icular size. Normal right ventricular systolic function. Right Atrium: The right atrium is normal in size. Aortic Valve: Aortic cusps appear mildly sclerotic. Aortic cusps appear mildly calcified. Noevidence of hemodynamically significant aortic stenosis by Doppler. No aortic regurgitation. MitralValve: Normal structure of the mitral valve. Trivial regurgitation of the mitral valve. Pulmonic Valve: Pulmonic valve not well visualized. Trivial regurgitation in the pulmonic valve. Tricuspid Valve: Normal structure of the tricuspid valve. Estimated peak RVSP is 17 mmHg. Trivial regurgitation inthe tricuspid valve. Pericardium: Normal pericardium with no significant pericardial effusion. Aorta: Normal aortic root. IVC: Normal size and normal respiratory collapse consistent with normal rightatrial pressure (<5 mmHg). CONCLUSIONS: Normal left ventricular size. Mild concentric left ventricular hypertrophy. Impaired diastolic relaxation Grade I. Ejection fraction is measured at 62 %. Normal right ventricular size. Normal right ventricular systolic function. Normal atrial septum. Normal structure of the mitral valve. Trivial regurgitation of the mitral valve. Aortic cusps appear mildly sclerotic. Aortic cusps appear mildly calcified. No evidence of hemodynamically significant aortic stenosis by Doppler. No aortic regurgitation. Normal structure of the tricuspid valve. Estimated peak RVSP is 17 mmHg. Trivial regurgitation in the tricuspid valve. Electronically Signed By: Turner. DO Marlena, BO, ALEXANDRA, SONIDO 2023-12-08 13:58:45 RAG 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 CC: CC: CC: CT Head WO Contrast Result Date: 12/08/2023 Narrative: EXAMINATION: CT HEAD WO CONTRAST HISTORY: The patient is a 78 year old male who is 24 hours post thrombolytic treatment. TECHNIQUE: Axial images were obtained through the brain with thin sections and viewed both in soft tissue and bone window settings. Following this, coronal and sagittal reconstructions were performed. FINDINGS: Axial images through the brain reveals prominence of the4th, 3rd and lateral ventricles as well as the cerebral sulci. No midline shift is seen. Periventricular hypodensities are noted in the centrum semiovale, consistent with small vessel deep white matter atherosclerotic disease. No intracerebral hemorrhage or extra-axial fluid collection is noted. Images obtained in the coronal and sagittal planes adds no further information. Axial images obtained bone window settings reveal the cranial vault to be intact. Mastoid air cells and paranasal sinuses are normally aerated. Impression: Cerebral atrophy and small vessel disease, in keeping with the patient's age. No bleed or mass. Electronically signed by: Cat Sandoval M.D. ECG 12 lead Result Date: 12/08/2023 Narrative: Vent Rate: 72 bpm RR Interval: 826 msec MT Interval: 183 msec QRS Duration: 88 msec QT Interval: 384 msec QTC Interval: 408 msec P-R-T [place]: 54 - -7 - 31 degrees IMPRESSION: SINUS RHYTHM WITH OCCASIONAL VENTRICULAR PREMATURE COMPLEXES BORDERLINE ECG NO CHANGE FROM PREVIOUS TRACING NOTED Electronically Signed By: Jasen Tran MD ECG 12 lead Result Date: 12/08/2023 Narrative: Vent Rate: 53 bpm RR Interval: 1114 msec MT Interval: 183 msec QRS Duration: 84 msec QT Interval: 420 msec QTC Interval: 404 msec P-R-T [place]: 40 - -10 - 21 degrees IMPRESSION: SINUS BRADYCARDIA MINIMAL VOLTAGE CRITERIA FOR LVH, CONSIDER NORMAL VARIANT [MEETS CRITERIA IN ONE OF: R(aVL), S(V1), R(V5), R(V5/V6)+S(V1)] BORDERLINE ECG Compared to prior EKG, PVCs are no longer present Electronically Signed By: Jasen Tran MD CTA/CTP Rapid Stroke (C) Result Date: 12/07/2023 Narrative: EXAMINATION: Computed tomography angiography (CTA) of the head without and with contrast; Computed tomography angiography (CTA) of the neck with contrast. CT perfusion imaging of the head with contrast HISTORY: 78-year-old man stroke symptoms left-sided weakness, vascular disease, history of seizures. TECHNIQUE: Computed tomography of the head was performed without contrast according to standard protocol. Computed tomographic angiography was obtained from the level of the aortic archto the vertex following the uneventful administration of intravenous contrast according to hyperacute stroke protocol. 3D images were generated on a dedicated workstation. CT perfusion of the brain was performed with intravenous contrast using a separate data acquisition. The data was transmitted to a separate workstation for processing by RAPID software ([employer] Well[employer]) to produce automated calculations of the estimated cerebral blood flow and Tmax. Contrast information: 120 mL [id number] COMPARISON: CT head dated 10/03/2022. FINDINGS: HEAD CT FINDINGS: There is no acute intracranial hemorrhage. There is no noncontrast evidence of acute stroke. There is no vascular hyperdensity of the M1 segments or basilar artery. Moderate periventricular lucencies representing chronic microvascular disease similar to previous.. There are no lacunar infarcts. Mild involutional changes stable since previous.. Basal ganglia calcifications.. There is no mass effect or midline shift. Atherosclerotic calcification cavernous carotid arteries. ANGIOGRAPHIC FINDINGS: The visualized aortic arch appears normal with normal configuration of the great vessels. There is no significant stenosis of the origins ofthe great vessels. There is no geographic area of vascular paucity in the brain. Left anterior circulation: L CCA: no occlusion or significant stenosis L carotid bifurcation: no occlusion or significant stenosis L ICA proximal: no occlusion or significant stenosis L ICA distal: no occlusion or significant stenosis L ICA terminus: no occlusion or significant stenosis L M1: no occlusion or significant stenosis L M2 branches: no occlusion or significant stenosis L A2: no occlusion or significant stenosis Right anterior circulation: R CCA: no occlusion or significant stenosis R carotid bifurcation: no occlusion or significant stenosis R ICA proximal: no occlusion or significant stenosis R ICA distal: no occlusion or significant stenosis R ICA terminus: no occlusion or significant stenosis R M1: no occlusion or significant stenosis R M2 branches: no occlusion or significant stenosis R A2: noocclusion or significant stenosis Posterior circulation: L Vertebral Artery: no occlusion or significant stenosis R Vertebral Artery: no occlusion or significant stenosis Basilar Artery: no occlusionor significant stenosis L FORGE SHOP SUPERVISOR: no occlusion or significant stenosis R FORGE SHOP SUPERVISOR: no occlusion or significant stenosis Venous sinuses appear to be patent. No cerebral aneurysm is seen. There is no evidence for an arteriovenous malformation. There is no suspicious cervical lymphadenopathy. There is no signi ficant cervical spondylosis. Limited views of the lung apices are normal. CT Perfusion: Estimated ischemic core volume (rCBF < 0.3): 0 mL Estimated hypoperfusion volume (Tmax > 6 sec): 0 mL Impression: No CT evidence of stroke. No significant carotid artery stenosis. There is also of the noncontrast CT of the brain called emergency room physician at 1:10 PM, results of the CT angiogram rapid stroke program called to the emergency room physician at 1:30 PM. Electronically signed by: Beka Draper M.D. ASSESSMENT AND PLAN All Diagnosis Present on Admission Unless Otherwise Stated: Acute ischemic right cerebral stroke, POA - s/p TNK, post thrombolytic care on 12/07/23 with neuro checks -continue Aspirin. Rosuvastatin. - TTE with bubble study - MRI brain 12/08/23 showing acute infarct posterior limb internal capsule right side. Underlying atrophy and small-vessel disease. No hemorrhagic changes identified. - CTH 24 hours post TNK -PT/OT/REGISTERED MEDICAL ASSISTANT HTN, POA - permissive HTN, -prn Hydralazine for SBP< 185 or DBP > 110 -monitor blood pressure closely and treat accordingly HLD, POA - continue with Simvastatin Asthma -patient not in exacerbation - resume prn albuterol AAA, POA - HTN control when post acute stroke - statin GERD/ PUD, POA - continue Protonix Hypothyroidism -levothyroxine Alzheimer, POA - continue home Donepezil Depression, POA - continue home Mirtazapine BPH -continue Flomax Insomnia, POA - replace home melatonin with ramelteon prn VTE and GI Prophylaxis CONSULTS RADIOGRAPHY TECHNICIAN CONSULT IP CONSULT TO NUTRITION SERVICES IP CONSULT TO NEUROLOGY IP CONSULT TO SOCIAL WORK IP CONSULT TO SOCIAL WORK Full Code Aminta Vera, NORM- [facility] Pager #: [phone] Voice recognition software [employer] was used dictate and transcribe this document. Blood Donor Recruiter Supervisor variances may occur. Despite proofreading, typographical errors may occur. 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 * Paresh Prieto SLP - 12/09/2023 11:15 AM CST Speech Language/Pathology No speech therapy services provided. Patient currently working with OT. Plan to re-attempt later this afternoon. MONA Jennings 12/09/23 11:15 AM 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 * Kay Isidro COTA - 12/09/2023 11:00 AM CST Occupational Therapy NOTE / SESSION TYPE: DAILY PROGRESS / TREATMENT Patient's Name: Gunjan Gtz JrMason Age / Sex: 78 y.o. / male Room: [id number] : 1945 Date of service: 12/09/23 TIME IN: 1100 TIME OUT: 1210 Patient Active Problem List Diagnosis Primary osteoarthritis of both knees Subchondral insufficiency fracture of condyle of left femur (CMS/HCC) ([facility]) Closed fracture of left tibial plateau with [...] Skin lesion of breast Edema Intermittent claudication ([facility]) Iron deficiency anemia Peripheral vascular disease ([facility]) Pain due to total right knee replacement (CMS/HCC) ([facility]) Hamstring tendinitis of right thigh Quadriceps weakness [...] Infrarenal abdominal aortic aneurysm (AAA) without rupture ([facility]) Acute CVA (cerebrovascular accident) ([facility]) Past Medical History: Diagnosis Date Acute gastric ulcer without hemorrhage or perforation Ulcer, gastric, acute - (Added by TW Conv) Alzheimer's dementia ([facility]) Asthma Back pain Cataract Closed fracture of left tibial plateau with delayed healing Closed fracture of right tibial plateau with delayed healing Closed nondisplaced osteochondral fracture of left patella with delayed healing Closed osteochondral fracture of patella, right, with delayed healing, subsequent encounter Clotting disorder (CMS/HCC) ([facility]) Complex tear of medial meniscus of left knee as current injury Complex tear of medial meniscus of right knee as current injury Cramps of lower extremity Diverticulitis of colon Easy bruisability Fatigue Frequent urination Gastroesophageal reflux disease GERD Hypothyroidism Incontinence of urine Muscle weakness Osteoarthritis Osteoarthritis Peptic ulcer Peptic ulcer disease Seizures ([facility]) 1997 last seizure in 1997 SOB (shortness of breath) on exertion Subchondral insufficiency fracture of condyle of left femur ([facility]/HCC) ([facility]) Vertigo Vision changes Visual disturbance hx of double vision, corrective lenses Past Surgical History: Procedure Laterality Date CATARACT EXTRACTION, BILATERAL Bilateral 2018 HERNIA REPAIR 1979 Hiatal Hernia repair KNEE ARTHROSCOPY Bilateral THYROIDECTOMY 12/27/2019 Precautions (including weight-bearing): Fall risk and Bed / chair alarm Subjective: The light hurts my eyes. (Pt noted to keep eyes closed) Spoke with Lianet, neuro EDUCATIONAL DIAGNOSTICIAN, MARAH Smith and Poly, evaluating OTR. Pt appears to have had a decrease in LUE function as well as transfer abilities from previous day. Therapy Pain: Pre-therapy pain level: 0 /10 Pain location: No pain - Location N/A Pain Intervention(s): No pain - Intervention N/A Post-therapy pain level: 0 /10 Pain scale reference: 0-10 SCALE Objective: Appearance: Presentation upon OT arrival: Patient Supine with head of bed elevated Presentation upon OT departure: Patient Sitting in bedside recliner Bed / Chair alarm in place and activated upon OT departure: Yes Call light within arms reach of patient at end of session: Yes Completed patient handoff and notified HYDRO STATION OPERATOR / RN, name: Sarah, of patient's location and functional status upon completion of session Cognitive / Perceptual: A O X 3; decreased insight and reasoning. (Pt told therapist that he didn't want to use the BSC, rather he wanted to walk into the bathroom.) Mobility / Transfers: Bed Mobility: supine to sit to EOB with MIN-MOD A. Pt had initially difficulties maintaining staticsitting. Able to sit with supervision for 7 min prior to transfer to chair. Transfer(s): Sit to stand with MIN A and increased time to stand erect. Pivot to recliner with MAX A X 1 and CGA of another for safety. Living Skills / Other Activities: GROOMING TASKS (INCLUDING ORAL HYGIENE) LOCATION OF GROOMING TASKS: Sitting in bedside chair / recliner TASKS COMPLETED: BRUSHING TEETH OVERALL ASSIST LEVEL: SUPERVISION ASSISTANCE / VERBAL CUES ADDITIONAL DOCUMENTATION: set up with paste on brush. Kidney basin held for him. Slight drippage ofliquids from L side of mouth. Pt asked therapist to let him hold kidney basin in L hand, although LUE non functional this date) UE THERAPEUTIC EXERCISES: EXERCISE TYPE: L UE PROM and L UE SCAPULAR MOBILIZATION EXERCISE(S) COMPLETED WITH NUMBER OF REPETITIONS: multiple NUMBER OF SETS: multiple ASSIST LEVEL: [id number] LOCATION OF COMPLETION: seated in wc TOLERANCE: good Scapular mobilization and joint compression to L shoulder along with PROM all other areas. Pt able to demonstrate L scapular elevation and horizontal ADD/ABD in gravity eliminated plane. No other AROM noted in LUE this date Caregiver Present: No Education & Training Provided: Role of OT, ADL training, Bed mobility training, Functional transfer training, Balance training, Safety education, Cognitive re- orientation, and UE home exercise program Assessment: Activity tolerance / response to OT session: GOOD PARTICIPATION, GOOD MOTIVATION, and RECEPTIVE TO EDUCATION / TRAINING Progress towards goals: Please refer to care plan from this date for progress towards individual goals Plan: Therapy Plan: Rehab Potential (Prognosis): good OT Recommendations This Date: OT RECOMMENDATIONS: OT Recommendation: (S) Inpatient Rehab Facility Flow sheet updated and OT Consultation in Regards to Change in Discharge Recommendations: YES /NO: No Additional recommendation comments: Recommend Inpatient Rehab/Acute Rehab due to: Ability to actively participate in intensive therapy 3 hours/day, 5 days/week or 900 minutes per week, Highly motivated to participate in therapy, Not at baseline due to impaired ability to complete ADLs, Impaired ability to complete functional mobility, Likely to return to the community at discharge with support system in place, Patient and caregiver require specialized skilled training due to new level of function/diagnosis, Requires multiple therapy disciplines to address functional deficits Frequency of therapy:OT Frequency during current admission: 3-5x/wk If this is the last note, consider this the discharge summary Kay Nicholson ANGI Isidro 12/09/23 Cosigned by Rosalia Marinelli OT at 12/09/2023 3:43 PM RAG 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 * Gaby Doyle MD - 12/08/2023 4:19 PM CST Pt with newly worsened left facial droop and LUE weakness this afternoon after 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 I assessed pt and he has more pronounced facial droop and now 3/5 instead of 4/5 strength in LUE. Stat noncon CTH ordered and showed no bleeding. I spoke with Dr. Mahajan neurologist, who advised that internal capsule stroke can progress but there is no specific treatment for it, ok to start ASA and ok to transfer to floor with Q4H neuro checks. Patient updated regarding the results and discussion. Discussed with Dr. Kwesi Doyle MD Cosigned by Dioni Orosco MD at 12/09/2023 6:04 PM RAG 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 * Trini Justin RD - 12/08/2023 1:40 PM CST NUTRITION ASSESSMENT Nutrition Status: Malnutrition work-up pending. REASON FOR ASSESSMENT: Consult/Referral - Stroke Protocol Encounter Date: 12/08/23 1:40 PM Admission Date: 12/07/2023 LOS: 1 days HPI: Patient is a 78 y.o. male who presented to the emergency room December 07, 2023 at 1:02 p.m. for anacute stroke. The patient reported sudden onset of difficulty with speech left arm weakness and left leg weakness. The last known well was 10:00 a.m. today. He was on the way to see ortho when he noted weakness of the left hand and arm when he tried to open the car door with his left hand because his left arm and hand were weak. He had difficulty getting up out of the car because of weakness of the left leg. He could not get himself up so he set himself back in the car and called the orthopedicsurgeon service, and 911 was called. He was brought to the emergency room, tele stroke was consulted and the patient was given tenecteplase at 1330 and neurology consultation is requested. CT of the head CTA of the head and neck showed no acute ischemia or large vessel occlusion. No significant stenosis of the carotid vessels. He came to ICU for post thrombolytic care. Reports pain in right jaw new since admission. Denies recent illness/ sick contacts. Is aware of his dysarthria. Reports he had MRs before without issue. 12/08: Ordering Ensure High PRO bid for additional calorie/protein intake. Objective Past Medical History: Diagnosis Date Acute gastric ulcer without hemorrhage or perforation Ulcer, gastric, acute - (Added by TW Conv) Alzheimer's dementia ([facility]) Asthma Back pain Cataract Closed fracture of left tibial plateau with delayed healing Closed fracture of right tibial plateau with delayed healing Closed nondisplaced osteochondral fracture of left patella with delayed healing Closed osteochondral fracture of patella, right, with delayed healing, subsequent encounter Clotting disorder (CMS/HCC) ([facility]) Complex tear of medial meniscus of left knee as current injury Complex tear of medial meniscus of right knee as current injury Cramps of lower extremity Diverticulitis of colon Easy bruisability Fatigue Frequent urination Gastroesophageal reflux disease GERD Hypothyroidism Incontinence of urine Muscle weakness Osteoarthritis Osteoarthritis Peptic ulcer Peptic ulcer disease Seizures ([facility]) 1997 last seizure in 1997 SOB (shortness of breath) on exertion Subchondral insufficiency fracture of condyle of left femur (CMS/HCC) ([facility]) Vertigo Vision changes Visual disturbance hx of double vision, corrective lenses Past Surgical History: Procedure Laterality Date CATARACT EXTRACTION, BILATERAL Bilateral 2018 HERNIA REPAIR 1979 Hiatal Hernia repair KNEE ARTHROSCOPY Bilateral THYROIDECTOMY 12/27/2019 Social History Tobacco Use Smoking status: Former Current packs/day: 0.00 Types: Cigarettes Start date: 1965 Quit date: 1966 Years since quittin.1 Smokeless tobacco: Never Substance and Sexual Activity Drug use: No Sexual activity: Defer Alcohol Use: Not At Risk (06/29/2022) AUDIT-C Frequency of Alcohol Consumption: Monthly or less Average Number of Drinks: 3 or 4 Frequency of Binge Drinking: Never MEDICATION/LAB REVIEW: Scheduled Meds: donepeziL, 10 mg, oral, Nightly fluticasone furoate-vilanteroL, 1 puff, inhalation, Daily (RT) gabapentin, 300 mg, oral, TID insulin lispro, 1-3 Units, subcutaneous, Q4H AIMEE levothyroxine, 150 mcg, oral, Daily - 0600 [START ON 12/09/2023] pantoprazole DR, 20 mg, oral, Daily rosuvastatin, 10 mg, oral, Daily sodium chloride 0.9%, 0.5-20 mL, intra-catheter, Q8H AIMEE tamsulosin, 0.4 mg, oral, Nightly Continuous Infusions: dextrose 5% and sodium chloride 0.9%, 30 mL/hr, Last Rate: 30 mL/hr (734) PRN Meds: acetaminophen OR acetaminophen OR acetaminophen albuterol HFA sodium chloride 0.9% dextrose OR dextrose glucagon hydrALAZINE OR [DISCONTINUED] labetalol ramelteon sodium chloride 0.9% tiZANidine Recent Labs Lab Units 12/07/23 2045 SODIUM mmol/L 137 POTASSIUM PLASMA mmol/L 4.1 CHLORIDE mmol/L 103 CO2 mmol/L 27 BUN SERUM mg/dL 16 CREATININE mg/dL 1.39* [id number] mL/min/1.73 m2 52 CALCIUM mg/dL 9.0 ALBUMIN g/dL 3.6 PHOSPHORUS PLASMA mg/dL 3.1 MAGNESIUM mg/dL 2.0 Recent Labs Lab Units 12/08/23 0726 12/08/23 0443 12/08/23 0004 12/07/23 2045 12/07/23 1957 12/07/23 1652 12/07/23 1330 GLUCOSE mg/dL -- -- -- 107 -- -- 115 POC GLUCOSE MONITOR mg/dL 105 112 105 -- 102 97 -- ALT Date Value Ref Range Status 12/07/2023 13 7 - 55 Units/L Final AST Date Value Ref Range Status 12/07/2023 20 10 - 50 Units/L Final Alk phos Date Value Ref Range Status 12/07/2023 107 40 - 130 Units/L Final Lab Results Component Value Date HGBA1C 5.6 12/07/2023 HDL 55 12/08/2023 LDLCALC 110 12/08/2023 CHOL 182 12/08/2023 TRIG 86 12/08/2023 NURSING ASSESSMENT: Bowel Sounds (All Quadrants): Hypoactive Hood Scale Score: 17 Skin Integrity: Abrasion, Rash Vital Signs BP: 115/64 Temp: 36.4 ??C (97.6 ??F) Pulse: 80 Resp: 20 SpO2: 98 % Intake/Output Summary (Last 24 hours) at 12/08/2023 1340 Last data filed at 12/08/2023 1205 Gross per 24 hour Intake 1020.54 ml Output 1300 ml Net -279.46 ml Adult Malnutrition Scoring Tool (MST) What diet do you follow at home?: Regular Have You Recently Lost Weight Without Trying?: [...] got money to buy more.: Never true Anthropometrics Weight: 103.4 kg (228 lb) Admission Weight : 103.4 kg Weight Change: -0.90 kg (-2.00 lbs) IBW/kg (Calculated) : 78 kg Height: 180.3 cm (5' 10.98 ) Weight in (lb) to have BMI = 25: 178.8 BMI (Calculated): 31.8 Wt Readings from Last 10 Encounters: 12/07/23 103.4 kg (228 lb) 12/08/23 103.4 kg (227 lb 15.3 oz) 11/12/23 99.8 kg (220 lb) 11/03/23 99.8 kg (220 lb) 10/10/23 100.9 kg (222 lb 8 oz) 05/18/23 104.3 kg (230 lb) 05/04/23 104.3 kg (230 lb) 03/23/23 105.2 kg (232 lb) 12/03/22 105 kg (231 lb 7.7 oz) 11/05/22 103.7 kg (228 lb 9.9 oz) ESTIMATED NEEDS: Total Energy Needs: 2213.75 kcal Total Energy Needs + Fever Factor: 2213.75 Equation Chosen to Use by RD: Melida Wilcoxdallas Activity Factor: 1.25 Weight Used for Equation Calculations (RD Determined): 103.4 kg (227 lb 15.3 oz) . Total Protein Estimated Needs (gm): 124.1 Protein Needs Based on g/k.2 Type of Weight Used for Estimated Protein : Current Total Fluid Estimated Needs: 2,213.75 mL/day Fluid Needs Based on : 1 ml/kcal Type of Weight Used for Estimated Fluid Needs: Current Dietary Orders (From admission, onward) Start Ordered 12/07/231938 Adult Diet Regular; Low Fat, Low Chol, Low Na Diet effective now Question Answer Comment (CH) Diet type Regular Other Restriction(s): Low Fat, Low Chol, Low Na 12/07/231937 Allergies: Reviewed. IMPRESSION: RD consulted per Stroke Protocol. Pt currently off the floor for head CT? Diet has been advanced after passing RN BSS. 100% consumed at breakfast meal. Ordering Ensure High PRO bid. Last BM MODELING ANALYST. BS range/24h: 97-112. D5 running at 30 mL/h. Follow for education needs and complete malnutrition assessment as able. ASPEN MALNUTRITION ASSESSMENT: Unable to complete at this time NUTRITION FOCUSED PHYSICAL EXAM: Unable to complete at this time. Nutrition focused physical exam not appropriate at this time (not in room, head CT?) NUTRITION DIAGNOSIS: Nutrition Diagnosis 1: Increased nutrient needs (protein) Related to: Acute illness/injury Evidenced by: Other (comment) (acute CVA) INTERVENTION(S): Summary: Initial assessment, Medical food supplement GOAL(S): Adequate nutrition to meet estimated needs by next assessment, Oral intake to meet 75% estimated nutritional needs by next assessment, Patient/caregiver able to teach back understanding of role of diet in disease process prior to discharge, Tolerance of medical food supplement by next assessment MONITORING/EVALUATION: Appetite, Diet-related questions, Discharge plans, GI output, Labs, Plan of care, PO intake, Supplement tolerance, Weight changes Diet Instructions Recommend to eat a generally healthy diet that includes a variety of fruits, vegetables, whole-grain breads, low-fat dairy products, beans, lean meats, and fish. Avoid saturated and trans fats and limit sodium to less than 2,300 mg per day. Avoid foods like desserts, fast food, fried/breaded foods,deli meats, sausage, gutierrez, and gravies/sauces. Call [phone] to speak with a dietitian about any diet related concerns. Recommend to follow up with outpatient nutrition counseling, ask your doctor for a referral and call [phone] to make an appointment. Nutrition Follow-Up : 12/13/[address],LD 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 * Lianet Mckinney NP - 12/08/2023 1:20 PM CST Neurology Daily Progress Note Subjective Chief complaint of stroke. Interval History: 12/08/2023 - The patient is seen and examined laying in bed. He is drowsy but will wake up and follow commands. He has a left sided facial droop and weakness of his left arm and leg. Family at bedside. MRI brain and ECHO completed today. Review of Systems Constitutional: Negative for chills, decreased appetite, diaphoresis and fever. HENT: Negative for congestion, hearing loss and hoarse voice. Eyes: Negative for blurred vision, double vision and visual halos. Cardiovascular: Negative for chest pain and leg swelling. Respiratory: Negative for cough and shortness of breath. Skin: Negative for rash. Gastrointestinal: Negative for bowel incontinence, nausea and vomiting. Genitourinary: Negative for bladder incontinence. Neurological: Positive for focal weakness. Negative for brief paralysis, difficulty with concentration, disturbances in coordination, excessive daytime sleepiness, dizziness, headaches, light-headedness, loss of balance, numbness, paresthesias, seizures, sensory change, tremors, vertigo and weakness. Psychiatric/Behavioral: Negative for altered mental status, hallucinations, memory loss and suicidal ideas. Current Facility-Administered Medications Medication Dose Route Frequency Provider Last Rate Last Admin acetaminophen (TYLENOL) tablet 650 mg 650 mg oral Q4H PRN Bernard Casillas MD 650 mg at 12/07/232022 Or acetaminophen (TYLENOL) 32 mg/mL oral liquid 650 mg 650 mg feeding tube Q4H PRN Bernard Casillas MD Or acetaminophen (TYLENOL) suppository 650 mg 650 mg rectal Q4H PRN Bernard Casillas MD albuterol HFA (PROVENTIL HFA,VENTOLIN HFA,PROAIR HFA) 90 mcg/actuation inhaler 2 puff 2 puff inhalation Q4H PRN (RT) Gaby Doyle MD Carrier Fluids for Secondary Infusion - 0.9% Sodium Chloride 30 mL intravenous PRN Gaby Doyle MD dextrose oral liquid liquid 15 g 15 g oral Q15 Min PRN Gaby Doyle MD Or dextrose (D10W) 10% bolus 250 mL 250 mL intravenous Q15 Min PRN Gaby Doyle MD dextrose 5% and sodium chloride 0.9% infusion (premix) 30 mL/hr intravenous Continuous Gaby Doyle MD 30 mL/hr at 12/07/23 1734 30 mL/hr at 12/07/231733 donepeziL (ARICEPT) tablet 10 mg 10 mg oral Nightly Bernard Casillas MD 10 mg at 12/07/232022 fluticasone furoate-vilanteroL (BREO ELLIPTA) 100-25 mcg/dose inhaler 1 puff 1 puff inhalation Daily (RT) Gaby Doyle MD gabapentin (NEURONTIN) capsule 300 mg 300 mg oral TID Bernard Casillas MD 300 mg at 12/08/23 0841 glucagon injection 1 mg 1 mg intramuscular Q30 Min PRN Gaby Doyle MD hydrALAZINE (APRESOLINE) injection 10 mg 10 mg intravenous Q15 Min PRN Bernard Casillas MD insulin lispro (HumaLOG, ADMELOG) 100 unit/mL injection 1-3 Units 1-3 Units subcutaneous Q4H [facility] Gaby Doyle MD levothyroxine (SYNTHROID) tablet 150 mcg 150 mcg oral Daily - 0600 Bernard Casillas MD 150 mcg at12/08/23 0640 [START ON 12/09/2023] pantoprazole DR (PROTONIX) extended release tablet 20 mg 20 mg oral Daily Gaby Doyle MD ramelteon (ROZEREM) tablet 8 mg 8 mg oral Nightly PRN eBrnard Casillas MD rosuvastatin (CRESTOR) tablet 10 mg 10 mg oral Daily Bernard Casillas MD 10 mg at 12/08/23 0841 sodium chloride 0.9% flush 0.5-20 mL 0.5-20 mL intra-catheter Q8H [facility] Gaby Doyle MD 10 mL at 12/08/23 0647 sodium chloride 0.9% flush 0.5-20 mL 0.5-20 mL intra-catheter PRN Gaby Doyle MD tamsulosin (FLOMAX) extended release capsule 0.4 mg 0.4 mg oral Nightly Bernard Casillas MD 0.4 mg at 12/07/232022 tiZANidine (ZANAFLEX) tablet 2 mg 2 mg oral TID PRN Dioni Orosco MD 2 mg at 12/08/23 1019 Objective Vitals: 24hr Min/Max: Temp Min: 36.1 ??C (97 ??F) Max: 37 ??C (98.6 ??F) Pulse Min: 43 Max: 83 BP Min: 117/99 Max: 171/86 Resp Min: 10 Max: 27 SpO2 Min: 92 % Max: 100 % Most Recent: Vitals: 12/08/23 0927 BP: 136/73 Pulse: Resp: Temp: 36.4 ??C (97.6 ??F) SpO2: Physical Exam Vitals and nursing note reviewed. HENT: Head: Normocephalic and atraumatic. Eyes: Extraocular Movements: Extraocular movements intact and EOM normal. Pupils: Pupils are equal, round, and reactive to light. Cardiovascular: Rate and Rhythm: Normal rate. Pulmonary: Effort: Pulmonary effort is normal. Abdominal: Palpations: Abdomen is soft. Musculoskeletal: General: Normal range of motion. Cervical back: Normal range of motion. Right lower leg: No edema. Left lower leg: No edema. Skin: General: Skin is warm. Findings: No rash. Neurological: Mental Status: He is alert and oriented to person, place, and time. Coordination: Pqdtox-Efbo-Mvcaam Test abnormal. Psychiatric: Speech: Speech normal. Neurologic Exam Mental Status Oriented to person, place, and time. Oriented to person. Oriented to place. Oriented to time. Oriented to year and month. Attention: normal. Concentration: normal. Speech: speech is normal Level of consciousness: arousable by verbal stimuli Knowledge: good. Normal comprehension. Cranial Nerves CN II Visual white full to confrontation. CN III, IV, Pupils are equal, round, and reactive to light. Extraocular motions are normal. Right pupil: Shape: regular. Reactivity: brisk. Left pupil: Shape: regular. Reactivity: brisk. CN III: no CN III palsy CN : no CN palsy Nystagmus: none Diplopia: none CN V Facial sensation intact. CN VII Facial expression full, symmetric. CN VIII CN VIII normal. Hearing: intact CN IX, X CN IX normal. CN X normal. CN XI CN XI normal. CN XII CN XII normal. Motor Exam Muscle bulk: normal Overall muscle tone: normal Strength Strength 5/5 except as noted. There is a left hemiparesis with a power of 4/5 there is a drift of the left leg. Sensory Exam Light touch normal. Gait, Coordination, and Reflexes Coordination Finger to nose coordination: abnormal Tremor Resting tremor: absent Intention tremor: absent Reflexes Right plantar: normal Left plantar: normal Right ankle clonus: absent Left ankle clonus: absent I/O last 2 completed shifts: In: 420 [P.O.:420] Out: 550 [Urine:550] I/O this shift: In: 600.5 [P.O.:200; I.V.:400.5] Out: - Lab/Radiology/Diagnostic Review: 12/08/2023 Lipid panel LDL 110 12/08/2023 CT head shows cerebral atrophy and small vessel disease, in keeping with the patient's age. No bleed or mass. 12/08/2023 MRI brain shows acute infarct posterior limb internal capsule right side. Underlying atrophy and small vessel disease. No hemorrhagic changes identified. 12/08/2023 CT head shows no definitive acute intracranial findings. Chronic microvascular ischemic changes and volume loss. 12/08/2023 ECHO shows no thrombus or vegetation. EF is measured at 62%. ASSESSMENTPLAN: Acute right cerebral infarction status post thrombolytic therapy. His stroke risk factors include age as well as dyslipidemia. He will be on the stroke and tPA pathway. There was concern this eveningfor this patient's stroke symptoms becoming worse. Recommendations: CT head was negative for hemorrhage, okay to continue Aspirin 81 mg daily. Continue Rosuvastatin daily for goal LDL less than 70. Continue to control blood pressure for a goal no lower than 130/80 and no higher than 185/[address]. [address] Mahajan, internal capsule stroke can progress and is recommended to continue supportive care of his stroke symptoms. Continue PT/OT/ST. Thank you for allowing us to participate in your patient's care. We will follow this patient with you as often as needed. Lianet Mckinney NP Cosigned by Nayan Mahajan II, MD at 12/09/2023 8:48 AM RAG 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 Associated attestation - Nayan Mahajan II, MD - 12/09/2023 8:48 AM RAG 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 I performed a substantial portion of this patient's interaction in conjunction with the nurse practitioner. I have discussed the case with the nurse practitioner the critical care fellow. I have reviewed the documentation have made recommendations regarding treatment. This patient presented with acute cerebral ischemia with left-sided weakness and was given thrombolytic therapy. CT scan on admission in the emergency room as well as CTA head and neck was unremarkable showing no large vessel occlusion or significant narrowing of the cervical vasculature. 12/08/2023 studies include a post [address] scan of the brain that showed no evidence of any acutestroke and an MRI of the brain that shows an acute infarct involving the posterior limb of the right internal capsule as well as microvascular disease. Transthoracic echocardiogram on the same day showed no cardiac source of stroke the ejection fraction was 62% The patient on the afternoon of 12/08/2023 developed increasing weakness of the left side of the body repeat head CT following this on 12/08/2023 shows no change. Impression: Acute infarction involving the posterior limb of the right internal capsule status postthrombolytic therapy. Recommendations: Treatment at this time would be primarily supportive. Adequate hydration and adequate control of blood pressure. Blood pressure should not be brought below 130/80 and should be treated in the blood pressure is greater equal to 185/110. Aggressive PT OT and speech therapy and treatment of stroke risk factors. * Paresh Triana, PT - 12/08/2023 10:34 AM CST Physical Therapy INITIAL EVALUATION PATIENT'S NAME:Gunjan Gtz Jr. :1945 AGE:78 y.o. ROOM:[place] [id number] TIME IN: 1034 TIME OUT:1118 CURRENT DIAGNOSIS AND HOSPITAL COURSE: Admitted on stroke protocol due to sudden onset of difficulty with speech and left sided weakness. Received TNK @[id number] 12/07/23. Concern for acute ischemic right cerebral stroke. MRI Brain pending. TTE pending. Notable hx: Alzheimer's, insomnia, GERD/PUD, GE junction diverticulum, HLD, AAA, hypothyroidism, OA, seizure Patient Active Problem List Diagnosis Primary osteoarthritis [...] Infrarenal abdominal aortic aneurysm (AAA) without rupture ([facility]) Acute CVA (cerebrovascular accident) ([facility]) Past Medical History: Diagnosis Date Acute gastric ulcer without hemorrhage or perforation Ulcer, gastric, acute - (Added by TW Conv) Alzheimer's dementia ([facility]) Asthma Back pain Cataract Closed fracture of left tibial plateau with delayed healing Closed fracture of right tibial plateau with delayed healing Closed nondisplaced osteochondral fracture of left patella with delayed healing Closed osteochondral fracture of patella, right, with delayed healing, subsequent encounter Clotting disorder (CMS/[facility]) ([facility]) Complex tear of medial meniscus of left knee as current injury Complex tear of medial meniscus of right knee as current injury Cramps of lower extremity Diverticulitis of colon Easy bruisability Fatigue Frequent urination Gastroesophageal reflux disease GERD Hypothyroidism Incontinence of urine Muscle weakness Osteoarthritis Osteoarthritis Peptic ulcer Peptic ulcer disease Seizures ([facility]) 1997 last seizure in 1997 SOB (shortness of breath) on exertion Subchondral insufficiency fracture of condyle of left femur ([facility]) ([facility]) Vertigo Vision changes Visual disturbance hx of double vision, corrective lenses Past Surgical History: Procedure Laterality Date CATARACT EXTRACTION, BILATERAL Bilateral 2018 HERNIA REPAIR 1979 Hiatal Hernia repair KNEE ARTHROSCOPY Bilateral THYROIDECTOMY 12/27/2019 SUBJECTIVE I've just gotten weaker. I was up walking yesterday here at the hospital. Patient with questionable insight and timeline of events since patient with bedrest with TNK. LIVES WITH: LIVING ENVIRONMENT: [address] 1-story house with walk-out basement. Walk-in shower with bench. PRIOR LEVEL OF FUNCTION: independent in BADLs and mobility with no AD. completes IADLs. No falls in past 6 months. 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 EQUIPMENT OWNED: wheeled walker, rollator, toilet riser, straight cane EQUIPMENT USED: none SOCIAL SUPPORTS: and daughter able to assist as needed. PATIENT/FAMILY GOAL: Get back to how I was before. MENTAL STATUS/ORIENTATION: Alert and Oriented to x 4. Follows simple commands. Concern for L neglect, requires frequent repositioning of LUE throughout session. OBJECTIVE PRECAUTIONS: fall and seizure APPEARANCE/POSTURE: supine in bed, asleep with no apparent distress, vitals monitor intact. VITAL SIGNS: Resting BP: 144/72 Post-activity BP: 128/81 Resting heart rate: 52 Post-activity heart rate: 63 Resting O2 sat: 98% Post-activity O2 sat: 98% PAIN: Pre-therapy pain level: 0/10 Pain location: - Pain intervention: - Post-therapy pain level/response to intervention: 0/10 LE ASSESSMENTS: Right LE ROM: WFL Left LE ROM: WFL Right LE strength: grossly 5/5 Left LE strength: DF 4/5, quads 4/5, hamstrings 2+/5, hip flexors 3-/5 Coordination: moderate dysdiadochokinesia, impaired L heel to hodges (also limited by weakness though) Tone: hypotonicity in LUE and LLE MOBILITY: Bed mobility: mod assist for supine to sit, required intermittent min assist for steadying sitting balance due to gradual posterior lean. Transfers: min assist for sit to/from stand with MANAGER TECHNICAL, minimal knee block needed in static standing. Moderate assist for bed to chair with MANAGER TECHNICAL, max knee block needed due to complete buckle in midstance with RLE advancement attempt to chair, able to correct partially with increased time, assist needed for mild weight-shifting to promote LE advancement to chair, cues for hand placement. Ambulation: 2' bed to chair only due to safety concerns Balance/Special Tests: Static sitting balance: fair Dynamic sitting balance: fair- Static standing balance: fair Dynamic standing balance: poor ROBERSON not appropriate at this time. AMPAC: Basic Mobility - 6 Click How much difficulty does the patient have: Turning over in bed: A lot How much difficulty does the patient currently have: Sitting down and standing up from a chair witharms?: A lot How much difficulty does the patient have: Moving from lying on back to sitting on the side of the bed?: A lot How much difficulty does the patient have: Moving to and from a bed to a chair including wheelchair?: A lot How much help does the patient currently need: Walk in hospital room?: Total How much help from another person does the patient currently need: Climbing 3-5 steps with a railing?: Total Total 6 Click Score (range 6-24): 10 6 click interpretation: AM-PAC 6 Click scores > 18 = Likely home discharge AM-PAC 6 Click scores < 18 = Likely require inpatient rehab or penitentiary placement at discharge APPEARANCE/POSTURE (end of session): sitting in bedside chair, alarm activated, room air, vitals monitor intact, call light in reach, no apparent distress. RNLyn, given handoff. EDUCATION: bed mobility , therapeutic activity, functional transfer training, balance training / neuromuscular re-education, safety , positioning, and role of PT evaluation RESPONSE TO EDUCATION: needs reinforcement ASSESSMENT PROBLEM LIST: decreased LE strength , impaired coordination, impaired balance , decreased mobility , gait instability, decreased endurance, decreased independence with ADLs , decreased safety awareness, impaired cognition, impaired communication, and medical complications BARRIERS TO LEARNING: Physical, Visual, and Cognitive BARRIERS TO DISCHARGE: Confusion, Limited safety awareness, Limited insight into deficits, Communication deficit, Decreased endurance, Decreased sensation, Decreased proprioception, Upper extremity weakness, Lower extremity weakness, Incontinence of bladder, Medical complications, Stairs at Home, and Skin Care REHAB POTENTIAL/PROGNOSIS: good PLAN PT Discharge Recommendations this date: PT Recommendation/Plan: Inpatient Rehab Facility Patient at high risk for: Falls, Readmission, Injury due to decreased ability to care for self, Injury due to reduced functional status, Injury due to impaired cognition, Injury due to balance deficits, Injury at home as patient has not returned to prior level of function, Developing impaired skin integrity, Cognitive decline due to decreased social participation, Prolonged dependence for self care tasks, Improper use of DME Recommend Inpatient Rehab/Acute Rehab due to: Ability to actively participate in intensive therapy 3 hours/day, 5 days/week or 900 minutes per week, Highly motivated to participate in therapy, Not atbaseline due to impaired ability to complete ADLs, Impaired ability to complete functional mobility, Likely to return to the community at discharge with support system in place, Requires greater than25% physical assistance with most mobility tasks, Requires greater than 25% physical assistance with most ADL tasks, Requires multiple therapy disciplines to address functional deficits, Patient and caregiver require specialized skilled training due to new level of function/diagnosis, Requires skilled therapy interventions to address neurological deficits Treatment Plan/Interventions: acute PT to address the above deficits PT Frequency during current admission: 3-5x/wk Equipment Recommendations: TBD pending progress in therapy Refer to multi-disciplinary care plan section for PT specific goals. If this is the last note, please consider this the discharge summary. Multi-Disciplinary Problems (from Physical Therapy) Active Problems Problem: PT Misc Start Date: 12/08/23 Goal Start Date Expected End Date End Date Patient to perform bed mobility with supervision. 12/08/23 12/15/23 -- Goal Start Date Expected End Date End Date Patient to perform functional transfers with most appropriate device supervision. 12/08/23 12/15/23-- Goal Start Date Expected End Date End Date Patient to ambulate 50 feet with most appropriate device supervision. 12/08/23 12/15/23 -- Goal Start Date Expected End Date End Date Patient to perform standing balance activity x5 minutes with supervision and UE support as needed 12/08/23 12/15/23 -- Goal Start Date Expected End Date End Date Patient to perform HEP for BLE strength and balance with at least 10 reps each. 12/08/23 12/15/23 -- 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 * Laquita Mukherjee, OT - 12/08/2023 10:34 AM CST Occupational Therapy NOTE / SESSION TYPE: Initial Evaluation Patient Name: Gunjan Gtz Jr. Date of : 1945 Age / Sex: 78 y.o. / male Room: [place] [id number] Admit Date: 12/07/2023 Date of Service: 12/08/23 Time In: 10:34 Time Out: 11:28 Primary Diagnosis: Acute CVA (cerebrovascular accident) (HCC) HPI: Gunjan Gtz Jr. is a 78 y.o. male who presented to the ED via EMS from the parking lot complaining of sudden onset of difficulty with speech, left arm weakness, and left leg weakness; acute right cerebral infarction s/p thrombolytic therapy at 13:30 on 12/07/23, pain in right jaw Per chart: Patient was driving his car and had pulled up to the parking lot to see his orthopedic surgeon today, when he realized that he had developed weakness in the left hand and arm. He noticed he had trouble reaching up to put the blinker on, and then when he tried to open the car door with his left hand he struggled to do this because the arm was weak. He tried to get up out of the car andrealized his left leg was weak also. He slid to the ground, but he was unable to help himself back up by pulling himself up on the open car door. He sat himself back down in the car, called his orthopedic surgeon's office, and they called 911. Notable History: See Below; Also history of insomnia, depression, Alzheimer's dementia Past Medical History: Diagnosis Date Acute gastric ulcer without hemorrhage or perforation Ulcer, gastric, acute - (Added by TW Conv) Alzheimer's dementia ([facility]) Asthma Back pain Cataract Closed fracture of left tibial plateau with delayed healing Closed fracture of right tibial plateau with delayed healing Closed nondisplaced osteochondral fracture of left patella with delayed healing Closed osteochondral fracture of patella, right, with delayed healing, subsequent encounter Clotting disorder ([facility]) ([facility]) Complex tear of medial meniscus of left knee as current injury Complex tear of medial meniscus of right knee as current injury Cramps of lower extremity Diverticulitis of colon Easy bruisability Fatigue Frequent urination Gastroesophageal reflux disease GERD Hypothyroidism Incontinence of urine Muscle weakness Osteoarthritis Osteoarthritis Peptic ulcer Peptic ulcer disease Seizures ([facility]) 1997 last seizure in 1997 SOB (shortness of breath) on exertion Subchondral insufficiency fracture of condyle of left femur ([facility]) ([facility]) Vertigo Vision changes Visual disturbance hx of double vision, corrective lenses Past Surgical History: Procedure Laterality Date CATARACT EXTRACTION, BILATERAL Bilateral 2018 HERNIA REPAIR 1979 Hiatal Hernia repair KNEE ARTHROSCOPY Bilateral THYROIDECTOMY 12/27/2019 Precautions (Including Weight-Bearing): Fall risk and Bed / chair alarm Caregiver Present for Session (Yes or No): No SUBJECTIVE: Patient Comment: I was doing better yesterday. Pain Assessment: Pre-therapy pain level: 0 / 10 Pain location: No pain - Location N/A Pain intervention(s): No pain - Intervention N/A Post-therapy pain level: 0 / 10 Pain scale used: 0-10 SCALE Prior Living Environment and Level of Function: Lives with: Receives assistance from / other social supports available: Supportive who is able to provide 24 hour supervision; supportive daughter Living environment (Type of residence / Entrance accessibility): One story house with 1-2 steps to enter without handrails. Basement that patient does access. 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 Fall(s) within the last 6 months: No OBJECTIVE: Appearance: Presentation upon OT arrival: Patient Supine with head of bed elevated Presentation upon OT departure: Patient Sitting in bedside recliner Bed / chair alarm in place and activated upon OT departure: Yes Call light within arms reach of patient at end of session: Yes Completed patient handoff and notified HYDRO STATION OPERATOR / RN, name: Lyn, of patient's location and functional status upon completion of session Vital Signs: Heart rate at rest: 54 bpm SPO2 at rest: 99 % Heart rate with activity: 63 bpm SPO2 with activity: 98 % Oxygen LPM: Room Air Blood pressure at rest: 144/72 Blood pressure with activity: 128/81 Cognitive / Perceptual Assessment: PATIENT ORIENTED TO: Person, Place, Situation, and Time PATIENT NOT ORIENTED TO: None FOLLOWING COMMANDS: Two step commands 100% COMMUNICATION: Quiet speech COGNITIVE SCREENING: (Short Blessed Test) Answer Max Error Error Score Weight Sub-Score 1. What year is it now? 2023 1 0 4 0 2. What month is it now? Repeat this phrase after me and remember it. Nigel Williamson [address] [place] [address]. Number of trialto [id number] 13 November 1 0 3 0 3. About what time is it without looking at your watch (within 1 hour?) Response: 10:00 Actual Time: 11:00 1 0 3 0 4. Count backwards from 20 to 1. Grey correctly sequenced #'s [x]20 [x]19 [x]18 [x] 17 [x]16 [x]15 [x] 14 [x]13 [x]12 [x]11 [x] 10 [x]9 [x]8 [x] 7 [x] 6 [x]5 [x]4 [x]3 [x]2 [x]1 2 0(a) 2 0 5. Say the months of the year in reverse. [x] D [x] N [x]O [x] S [x] A [x]JL [x]JU [x]MY [x]A [x]M []F [x] J 2 0(a) 2 0 6. Repeat the name and address I asked you to remember. Nigel Williamson [address] [place] [address]. [x]Nigel [x] [place] []42 [x][facility] [x][place] 5 1(b) 2 2 A weighted error score of 9 or greater indicates a need for further assessment. Total Weighted Error Score = 2 (a) Scoring 0 = No errors, 1 = 1 error, 2 = 2 or more errors, (b) An answer of either [facility] or [facility] is acceptable. UE ROM / Strength / Coordination: (A)ROM - Right: WFL Strength - Right: 4/5 throughout (A)ROM - Left: Shoulder abduction approximately 120 degrees, shoulder flexion 45 degrees, elbow flexion/extension WFL, wrist flexion WFL, wrist extension approximately 10 degrees, decreased digit flexion/extension Strength - Left: Shoulder abduction 3-/5, shoulder flexion 2+/5, elbow flexion 4/5, elbow extension4-/5, wrist flexion 3+/5, wrist extension 2+/5 Hand Dominance: Right Coat Operator Strength (Right) Good Coat Operator Strength (Left): Fair Right Serial Opposition: Intact Left Serial Opposition: Other: Only able to complete with index and middle fingers Right Woveqk-Gcso-Qwjqdq: Intact Left Jkzwig-Tgpc-Bfxajk:Decreased rate and accuracy VISUAL ASSESSMENT: Field-cut assessment- Patient presents with difficulty seeing objects in left upper quadrant. Balance: Static sitting balance: Fair, supported, sitting on EOB Dynamic sitting balance: Fair-, supported, sitting on EOB Patient with posterior lean and required intermittent min assist to correct Static standing balance: Fair, supported, standing at EOB Dynamic standing balance: Poor, supported Mobility / Transfers: Bed mobility (Components & Assistance): Supine to sit-Mod assist Transfer(s): Sit to stand from EOB/stand to sit to bedside recliner-Min assist EOB to bedside recliner-Mod assist with left knee blocked Activities of Daily Living / Living Skills: UE dressing: Patient completed upper body dressing of Hospital gown as robe while Sitting on EOB with overall Moderate assistance. Patient required assistance for threading LUE and pulling around back. Lower Body Dressing: Patient completed simulated lower body dressing of Underwear while Sitting on EOB with overall Dependent assistance / two or more helpers. Patient required assistance for threading / unthreading RLE underwear, threading / unthreading LLE underwear, and pulling underwear over hips. Footwear: Patient completed footwear of Sock(s) while Sitting on EOB with overall Dependent assistance / two or more helpers. Patient required assistance for donning / doffing right sock / footie and donning /doffing left sock / footie ASSESSMENT: Rehab Potential (Prognosis): good Problem List: Patient has impairments including: Decreased UE ROM , Decreased UE strength, Decreased coordination, Decreased balance, Decreased mobility, Decreased endurance, Decreased communication,Decreased ADL independence, and Pain. Barriers to Discharge: Communication deficit, Decreased endurance, Upper extremity weakness, Lower extremity weakness, and Impaired vision PLAN: OT Discharge Recommendations this date: OT RECOMMENDATIONS: OT Recommendation: (S) Inpatient Rehab Facility Patient at risk for: Patient at high risk for: Falls, Injury due to decreased ability to care for self, Readmission, Injury due to reduced functional status, Injury due to balance deficits, Injury athome as patient has not returned to prior level of function, Prolonged dependence for self care tasks Additional recommendation comments: Recommend Inpatient Rehab/Acute Rehab due to: Ability to actively participate in intensive therapy 3 hours/day, 5 days/week or 900 minutes per week, Highly motivated to participate in therapy, Not at baseline due to impaired ability to complete ADLs, Impaired ability to complete functional mobility, Likely to return to the community at discharge with support system in place, Patient and caregiver require specialized skilled training due to new level of function/diagnosis, Requires multiple therapy disciplines to address functional deficits Justification of discharge recommendations flow sheet completed: Yes Frequency of therapy:OT Frequency during current admission: 3-5x/wk Intervention / Education needs: ADL training, Compensatory ADL strategies, Adaptive equipment education, Durable medical equipment education, Balance activities, Functional transfer training, Safety education, and UE home exercise program education Education provided: Patient has been educated on Role of OT, OT plan of care, ADL training, Compensatory ADL strategies, Bed mobility training, Functional transfer training, and Safety education. Individual(s) needs ongoing reinforcement. Short Term Goals / Care Plan: Multi-Disciplinary Problems (from Occupational Therapy) Active Problems Problem: OT Misc Start Date: 12/08/23 Goal Start Date Expected End Date End Date [place] [facility] [place] 12/15/23 -- Goal Details: Patient will complete HEP of left UE AROM and self-ROM exercises including digits with initial verbal cues one time to increase tolerance for ADLs Goal Start Date Expected End Date End Date OT [facility] - [facility] 2 12/08/23 12/15/23 -- Goal Details: Patient will complete HEP of scapular mobilization with initial verbal cues one time Goal Start Date Expected End Date End Date OT [facility] - [facility] 3 12/08/23 12/15/23 -- Goal Details: Patient will complete bathing with mod assist one time Goal Start Date Expected End Date End Date OT [facility] - [facility] 4 12/08/23 12/15/23 -- Goal Details: Patient will complete UE dressing with min assist one time Goal Start Date Expected End Date End Date OT [facility] - [facility] 5 12/08/23 12/15/23 -- Goal Details: Patient will complete LE dressing of underwear and socks with mod assist one time Goal Start Date Expected End Date End Date OT [facility] - Mis 6 12/08/23 12/15/23 -- Goal Details: Patient will complete toilet transfer with min assist one time Goal Start Date Expected End Date End Date OT [facility] [place] [facility] [place] 12/08/23 12/15/23 -- Goal Details: Patient will complete a functional activity while sitting on EOB with good- balance x4-5 minutes to improve endurance and tolerance for ADLs one time Goal Start Date Expected End Date End Date OT [facility] [place] [facility] [place] 12/08/23 12/15/23 -- Goal Details: Patient will complete visual scanning activity in left upper and lower quadrants withinitial verbal cues to address visual deficit one time If this is the last note, consider this the discharge summary Laquita Mukherjee OT 12/08/23 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 * Paresh Prieto SLP - 12/08/2023 9:15 AM CST SPEECH-LANGUAGE PATHOLOGY INITIAL EVALUATION Patient's Name: Gunjan Gtz Jr. : 1945 Age: 78 y.o. Time In: 9:05 Time Out: 9:30 Current diagnosis and hospital course: Patient presented to ED via EMS with sudden onset of difficulty with speech, left arm weakness and left leg weakness. Stroke protocol initiated. CT/CTA with no evidence of stroke or no significant carotid artery stenosis. S/P TNK. Patient Active Problem List Diagnosis Primary osteoarthritis of both knees Subchondral insufficiency fracture of condyle of left femur (CMS/HCC) ([facility]) Closed fracture of left tibial plateau with [...] Skin lesion of breast Edema Intermittent claudication ([facility]) Iron deficiency anemia Peripheral vascular disease ([facility]) Pain due to total right knee replacement ([facility]/HCC) ([facility]) Hamstring tendinitis of right thigh Quadriceps weakness Idiopathic peripheral neuropathy Abnormality of gait and mobility Hx of total knee replacement, right Neuropathy ([facility]) 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 Biceps tendinitis of left upper extremity Tear of left glenoid labrum Coffee ground emesis Upper GI bleed Acquired hypothyroidism Acute blood loss anemia Lung nodule Nocturnal cough Hiatal hernia Infrarenal abdominal aortic aneurysm (AAA) without rupture ([facility]) Acute CVA (cerebrovascular accident) ([facility]) Past Medical History: Diagnosis Date Acute gastric ulcer without hemorrhage or perforation Ulcer, gastric, acute - (Added by TW Conv) Alzheimer's dementia ([facility]) Asthma Back pain Cataract Closed fracture of left tibial plateau with delayed healing Closed fracture of right tibial plateau with delayed healing Closed nondisplaced osteochondral fracture of left patella with delayed healing Closed osteochondral fracture of patella, right, with delayed healing, subsequent encounter Clotting disorder ([facility]) ([facility]) Complex tear of medial meniscus of left knee as current injury Complex tear of medial meniscus of right knee as current injury Cramps of lower extremity Diverticulitis of colon Easy bruisability Fatigue Frequent urination Gastroesophageal reflux disease GERD Hypothyroidism Incontinence of urine Muscle weakness Osteoarthritis Osteoarthritis Peptic ulcer Peptic ulcer disease Seizures ([facility]) 1997 last seizure in 1997 SOB (shortness of breath) on exertion Subchondral insufficiency fracture of condyle of left femur (CMS/HCC) ([facility]) Vertigo Vision changes Visual disturbance hx of double vision, corrective lenses Past Surgical History: Procedure Laterality Date CATARACT EXTRACTION, BILATERAL Bilateral 2018 HERNIA REPAIR 1980 Hiatal Hernia repair KNEE ARTHROSCOPY Bilateral THYROIDECTOMY 12/27/2019 SUBJECTIVE LIVES WITH: LIVING ENVIRONMENT: 1 story house with a basement PRIOR LEVEL OF FUNCTIONING: Independent with all self care tasks. Shares it desktop support technician with . 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 SOCIAL SUPPORTS: PATIENT/FAMILY GOAL: None stated OBJECTIVE PRECAUTIONS: Fall, Seizure PAIN: Pre Therapy Pain Level: 0/10 Pain Location: N/A Pain Intervention: N/A Post Therapy Pain Level/Response to Intervention: 0/10 ORAL MOTOR Left labial asymmetry with mild decrease with labial ROM. Lingual ROM appears WFL. MOTOR SPEECH Patient's speech is 100% intelligible during spontaneous phrases. 80-90% intelligible during spontaneous sentences. COMPREHENSION Able to follow 1 step commands, answer yes/no questions and comprehend complex information with 100% accuracy. EXPRESSION WNL - No word finding deficits observed during informal assessment COGNITION Oriented x4 Patient recalls decreased short term memory that has been going on for a while. SWALLOWING/DYSPHAGIA Swallow not assessed by REGISTERED MEDICAL ASSISTANT. Patient passed nursing dysphagia screener on admission. ASSESSMENT BARRIERS TO LEARNING:Cognitive and Communication BARRIERS TO DISCHARGE:Upper extremity weakness and Lower extremity weakness REHAB POTENTIAL/PROGNOSIS:good PLAN RECOMMENDATIONS: Recommend acute rehab pending qualifying criteria TREATMENT PLAN/INTERVENTIONS: Cognition, Motor Speech FREQUENCY: BID, 5xs weekly If this is the last note, consider this the discharge summary EDUCATION AND GOALS Multi-Disciplinary Problems (from Speech Therapy) Active Problems Please refer to care plan for speech therapy specific goals PATIENT/FAMILY EDUCATION: Discussed purpose of speech therapy services and stroke protocol with patient. RESPONSE TO EDUCATION:verbalizes understanding 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 * Sonja Hayward RN - 12/08/2023 8:33 AM CST Inpatient Rehabilitation has initiated an evaluation per stroke protocol. Will continue to follow for medical stability and tolerance / participation in therapies. Sonja Hayward RN 12/08/23 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 * Gaby Doyle MD - 12/08/2023 8:24 AM CST Surgical ICU Daily Progress Team: Community AM Subjective Patient is a 78 y.o. male admitted on 12/07/2023 12:52 PM with chief complaint of acute right cerebral ischemic stroke . Interval History: doing well, having diet. Reports his symptoms to be improving. Awaiting bMR, TTE and CTH. Objective Physical Exam Vitals reviewed. Constitutional: General: He is not in acute distress. HENT: Head: Normocephalic and atraumatic. Comments: Tingling and tenderness right jaw without any signs of trauma Mouth/Throat: Mouth: Mucous membranes are moist. Pharynx: Oropharynx is clear. Eyes: General: No scleral icterus. Extraocular Movements: Extraocular movements intact. Pupils: Pupils are equal, round, and reactive to light. Cardiovascular: Rate and Rhythm: Normal rate and regular rhythm. Heart sounds: Normal heart sounds. Pulmonary: Effort: Pulmonary effort is normal. No respiratory distress. Breath sounds: Normal breath sounds. Abdominal: General: There is no distension. Palpations: Abdomen is soft. Musculoskeletal: General: Normal range of motion. Cervical back: Normal range of motion and neck supple. Skin: General: Skin is warm and dry. Neurological: Mental Status: He is alert. Mental status is at baseline. Motor: RUE and RLE 5/5. LUE and LLE 4/5. Cranial Nerves: minimal left facial droop with no facial asymmetry when smiling. Psychiatric: Mood and Affect: Mood normal. Behavior: Behavior normal. Medications Scheduled Meds:aspirin, 81 mg, oral, Daily donepeziL, 10 mg, oral, Nightly fluticasone furoate-vilanteroL, 1 puff, inhalation, Daily (RT) gabapentin, 300 mg, oral, TID levothyroxine, 150 mcg, oral, Daily - 0600 [START ON 12/09/2023] pantoprazole DR, 20 mg, oral, Daily rosuvastatin, 10 mg, oral, Daily sodium chloride 0.9%, 0.5-20 mL, intra-catheter, Q8H AIMEE tamsulosin, 0.4 mg, oral, Nightly Continuous Infusions:dextrose 5% and sodium chloride 0.9%, 30 mL/hr, Last Rate: 30 mL/hr (12/07/23 3109) PRN Meds:. acetaminophen OR acetaminophen OR acetaminophen albuterol HFA sodium chloride 0.9% dextrose OR dextrose glucagon hydrALAZINE OR [DISCONTINUED] labetalol ramelteon sodium chloride 0.9% tiZANidine Vital signs for last 24 hours: Temp: [36.1 ??C (97 ??F)-37 ??C (98.6 ??F)] 36.3 ??C (97.4 ??F) Pulse: [43-83] 57 BP: (115-171)/(60-109) 146/85 Resp: [10-27] 19 SpO2: [92 %-100 %] 100 % Hemodynamics: MAP (mmHg): [76-118] 98 Pulmonary Support: O2 Therapy: None (Room air) Intake/Output: Intake/Output Summary (Last 24 hours) at 12/08/2023 1624 Last data filed at 12/08/2023 1205 Gross per 24 hour Intake 1020.54 ml Output 1300 ml Net -279.46 ml Lab/Radiology/Diagnostic Review: I have reviewed all pertinent labs and images. Recent Results (from the past 24 hour(s)) POCT glucose Collection Time: 12/07/23 4:52 PM Result Value Ref Range Glucose, POC 97 70 - 199 mg/dL Troponin T high-sensitivity 4-hour Collection Time: 12/07/23 5:58 PM Result Value Ref Range Trop T hs 18 <=22 ng/L Trop T hs delta -4 ng/L Trop T hs interp Insignificant Infection Prevention MRSA Only (Staphylococcus aureus) PCR Nasal Collection Time: 12/07/23 5:58 PM Specimen: Nasal Result Value Ref Range PCR Scrn, Methicillin resistant Staphylococcus aureus (MRSA) Not Detected Not Detected Troponin T high-sensitivity 6-hour Collection Time: 12/07/23 7:34 PM Result Value Ref Range Trop T hs 24 (H) <=22 ng/L Trop T hs delta 2 ng/L Trop T hs interp Insignificant POCT glucose Collection Time: 12/07/23 7:57 PM Result Value Ref Range Glucose, POC 102 70 - 199 mg/dL Fibrinogen Collection Time: 12/07/23 8:45 PM Result Value Ref Range Fibrinogen 438 (H) 170 - 400 mg/dL Hemoglobin A1c Collection Time: 12/07/23 8:45 PM Result Value Ref Range Hgb A1C 5.6 4.0 - 5.6 % Estimated Average Glucose 114 mg/dL Lipid panel Collection Time: 12/07/23 8:45 PM Result Value Ref Range Cholesterol 186 30 - 199 mg/dL Triglycerides 69 <=149 mg/dL HDL 59 >=40 mg/dL LDL, calculated 113 <=129 mg/dL Non-HDL Cholesterol 127 mg/dL Chol/HDL ratio 3 CBC with auto differential Collection Time: 12/07/23 8:45 PM Result Value Ref Range WBC 7.9 3.8 - 9.9 K/cumm Hgb 13.1 13.0 - 17.5 g/dL Hct 39.7 38.9 - 50.3 % Plt 224 150 - 400 K/cumm MPV 10.3 9.1 - 12.3 fL RBC 4.04 (L) 4.30 - 5.80 M/cumm MCV 98.3 (H) 81.3 - 96.4 fL MCH 32.4 27.1 - 33.3 pg MCHC 33.0 32.3 - 35.7 g/dL RDW CV 13.3 11.1 - 14.9 % RDW SD 48.4 (H) 35.7 - 48.1 fL NRBC abs 0.00 0.00 - 0.01 K/cumm Phosphorus Collection Time: 12/07/23 8:45 PM Result Value Ref Range Phosphorus, pl 3.1 2.3 - 4.5 mg/dL Magnesium Collection Time: 12/07/23 8:45 PM Result Value Ref Range Magnesium 2.0 1.4 - 2.5 mg/dL Comprehensive metabolic panel Collection Time: 12/07/23 8:45 PM Result Value Ref Range Sodium 137 135 - 145 mmol/L Potassium, pl 4.1 3.3 - 4.9 mmol/L Chloride 103 97 - 110 mmol/L CO2 27 22 - 32 mmol/L Anion gap 7 2 - 15 mmol/L BUN 16 6 - 25 mg/dL Creatinine 1.39 (H) 0.80 - 1.30 mg/dL Glucose 107 70 - 199 mg/dL Calcium 9.0 8.5 - 10.3 mg/dL Bilirubin, total 0.4 0.1 - 1.2 mg/dL Protein, pl 6.7 6.5 - 8.5 g/dL Albumin 3.6 3.5 - 5.0 g/dL Alk phos 107 40 - 130 Units/L ALT 13 7 - 55 Units/L AST 20 10 - 50 Units/L Calcium, ionized, whole blood Collection Time: 12/07/23 8:45 PM Result Value Ref Range Ca, ionized, bld 4.80 4.50 - 5.10 mg/dL Differential, auto Collection Time: 12/07/23 8:45 PM Result Value Ref Range Neutrophil abs 4.4 1.5 - 6.5 K/cumm Imm gran abs 0.0 0.0 - 0.1 K/cumm Lymphocyte abs 2.4 0.8 - 3.3 K/cumm Monocyte abs 0.7 0.2 - 0.8 K/cumm Eosinophil abs 0.3 0.0 - 0.5 K/cumm Basophil abs 0.1 0.0 - 0.1 K/cumm Neutrophil pct 55.4 % Imm gran pct 0.3 % Lymphocyte pct 30.7 % Monocyte pct 8.8 % Eosinophil pct 4.2 % Basophil pct 0.6 % eGFR Collection Time: 12/07/23 8:45 PM Result Value Ref Range eGFR 52 mL/min/1.73 m2 POCT glucose Collection Time: 12/08/23 12:04 AM Result Value Ref Range Glucose, POC 105 70 - 199 mg/dL Lipid panel Collection Time: 12/08/23 4:10 AM Result Value Ref Range Cholesterol 182 30 - 199 mg/dL Triglycerides 86 <=149 mg/dL HDL 55 >=40 mg/dL LDL, calculated 110 <=129 mg/dL Non-HDL Cholesterol 127 mg/dL Chol/HDL ratio 3 POCT glucose Collection Time: 12/08/23 4:43 AM Result Value Ref Range Glucose, POC 112 70 - 199 mg/dL POCT glucose Collection Time: 12/08/23 7:26 AM Result Value Ref Range Glucose, POC 105 70 - 199 mg/dL CTA/CTP Rapid Stroke (C) Result Date: 12/07/[address] evidence of stroke. No significant carotid artery stenosis. There is also of the noncontrast CT of the brain called emergency room physician at 1:10 PM, results of the CT angiogram rapid strokeprogram called to the emergency room physician at 1:30 PM. Electronically signed by: Beka Draper M.D. Assessment/Plan Principal Problem: Acute CVA (cerebrovascular accident) (HCC) Patient is a 78 y.o. male with Alzheimer, asthma, GERD/PUD, GE junction diverticulum, HLD, AAA, hypothyroidism, OA, seizure (last one in 1997) who presented to the ICU with chief complaint of acute right cerebral ischemic stroke. He is s/p TNK at 1330 of 12/07/2023. Neuro deficits improving. NEURO: # acute ischemic right cerebral stroke, POA - s/p TNK, post thrombolytic care with neuro checks - TTE with bubble study - bMRI - CTH 24 hours post TNK #Alzheimer, POA - home donepezil #Insomnia, POA - replace home melatonin with ramelteon prn #depression, POA - home mirtazapine # acute pain - prn tylenol CV: #HLD, POA - hold home pravastatin till passes swallow eval - lipid panel #HTN, POA - permissive HTN, prn hydralazine for SBP< 185 or DBP > 110 #AAA, POA - HTN control when post acute stroke - statin PULM: #asthma - replace home inhalers, resume prn albuterol GI: Diet: NPO Bowel regimen: holding PUD PPx: protonix #GERD/ PUD, POA - protonix ENDO: ICU SSI RENAL: BUN/Cr - 16/ 1.39 Fluid balance goal: even Maintenance IV fluids: stop D5 NS Electrolyte repletion orders: K to 4, mag to 2, phos to 3 HEME: HH - 13.1 Plt - 224 DVT ppx: lovenox tomorrow ID: WBC - 7.9 Antibiotics: none Cultures: none Intensive Care Unit Standards of Care: Restraints: none DVT prophylaxis: on hold Vascular access: PIV Goals of care: FULL Disposition: TTF Assessment and plan has been reviewed with attending, Dr. Kwesi Doyle MD [facility] fellow Procedures Cosigned by Dioni Orosco MD at 12/09/2023 6:04 PM RAG 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 documented in this encounter H&P Notes * Gaby Doyle MD - 12/07/2023 6:01 PM CST Images from the original note were not included. ICU History and Physical Team: Community AM Subjective Patient is a 78 y.o. male presented to the ICU with chief complaint of acute right cerebral ischemic stroke. HPI: Gunjan Gtz Jr. Is a 78 y.o. male who presented to the emergency room December 07, 2023 at 1:02 p.m. for an acute stroke. The patient reported sudden onset of difficulty with speech left arm weakness and left leg weakness. The last known well was 10:00 a.m. today. He was on the way to see ortho when he noted weakness of the left hand and arm when he tried to open the car door with his left hand b ecause his left arm and hand were weak. He had difficulty getting up out of the car because of weakness of the left leg. He could not get himself up so he set himself back in the car and called the orthopedic surgeon service, and 911 was called. He was brought to the emergency room, tele stroke was consulted and the patient was given tenecteplase at 1330 and neurology consultation is requested. CT of the head CTA of the head and neck showed no acute ischemia or large vessel occlusion. No significant stenosis of the carotid vessels. He came to ICU for post thrombolytic care. Reports pain in right jaw new since admission. Denies recent illness/ sick contacts. Is aware of his dysarthria. Reports he had MRs before without issue. Past Medical History: Diagnosis Date Acute gastric ulcer without hemorrhage or perforation Ulcer, gastric, acute - (Added by TW Conv) Alzheimer's dementia ([facility]) Asthma Back pain Cataract Closed fracture of left tibial plateau with delayed healing Closed fracture of right tibial plateau with delayed healing Closed nondisplaced osteochondral fracture of left patella with delayed healing Closed osteochondral fracture of patella, right, with delayed healing, subsequent encounter Clotting disorder (CMS/HCC) ([facility]) Complex tear of medial meniscus of left knee as current injury Complex tear of medial meniscus of right knee as current injury Cramps of lower extremity Diverticulitis of colon Easy bruisability Fatigue Frequent urination Gastroesophageal reflux disease GERD Hypothyroidism Incontinence of urine Muscle weakness Osteoarthritis Osteoarthritis Peptic ulcer Peptic ulcer disease Seizures ([facility]) 1997 last seizure in 1997 SOB (shortness of breath) on exertion Subchondral insufficiency fracture of condyle of left femur (CMS/HCC) ([facility]) Vertigo Vision changes Visual disturbance hx of double vision, corrective lenses Past Surgical History: Procedure Laterality Date CATARACT EXTRACTION, BILATERAL Bilateral 2018 HERNIA REPAIR 1980 Hiatal Hernia repair KNEE ARTHROSCOPY Bilateral THYROIDECTOMY 12/27/2019 Medications Prior to Admission Medication Sig Dispense Refill Last Dose Advair HFA 230-21 mcg/actuation inhaler Inhale 2 puffs 2 (two) times a day 12/07/2023 albuterol HFA (PROVENTIL HFA,VENTOLIN HFA,PROAIR HFA) 90 mcg/actuation inhaler 2 puffs every 4 (four) hours as needed 12/07/2023 azithromycin (ZITHROMAX) 250 mg tablet TAKE 2 TABLETS BY MOUTH ON DAY 1, AND THEN TAKE 1 TABLET BY MOUTH ONCE A DAY ON DAY 2 THROUGH DAY 5 12/07/2023 capsaicin 0.1 % cream Apply to your feet three to four times a day. 60 g 5 12/06/2023 cholecalciferol (VITAMIN D-3) 2000 unit capsule Take 1 capsule (2,000 Units total) by mouth daily (Patient taking differently: Take 1 capsule (2,000 Units total) by mouth nightly) 30 capsule 3 12/07/2023 clobetasoL (TEMOVATE) 0.05 % ointment Apply topically 2 (two) times a day To most severe rash/itch on your skin. Do not use on face, armpits, or groin. If your most severe rash has yellow crusts/flakes, then mix clobetasol ointment 1:1 with mupirocin ointment before applying it. For less severe rash/itch, use triamcinolone cream sent as a separate prescription. 60 g 3 Past Week gabapentin (NEURONTIN) 300 mg capsule Take 2 capsules (600 mg total) by mouth 3 (three) times a day pravastatin (PRAVACHOL) 10 mg tablet Take 1 tablet (10 mg total) by mouth daily spironolactone (ALDACTONE) 25 mg tablet Take 1 tablet (25 mg total) by mouth daily zolpidem (AMBIEN) 5 mg tablet Take 1 tablet (5 mg total) by mouth nightly at bedtime. cetirizine (ZyrTEC) 10 mg tablet Take 1 tablet (10 mg total) by mouth daily Unknown donepeziL (ARICEPT) 10 mg tablet Take 1 tablet by mouth nightly 30 tablet 0 eszopiclone (LUNESTA) 2 mg tablet BRING TABLET WITH YOU TO SLEEP LAB Flovent HFA 44 mcg/actuation inhaler INHALE 2 PUFFS BY MOUTH TWICE DAILY EVERY 12 HOURS furosemide (LASIX) 20 mg tablet Take 1 tablet (20 mg total) by mouth 2 (two) times a day levothyroxine (SYNTHROID) 150 mcg tablet Take 1 tablet (150 mcg total) by mouth daily lidocaine (ASPERCREME) 4 % adhesive patch,medicated Place 1 patch on the skin daily for 12 days 12 patch 0 melatonin 10 mg tablet Take 1 tablet (10 mg total) by mouth nightly mirtazapine (REMERON) 7.5 mg tablet TAKE 1 TABLET BY MOUTH ONCE DAILY AT NIGHT mupirocin (BACTROBAN) 2 % ointment Apply topically 2 (two) times a day If your most severe itchy rash has yellow crusts/flakes, then mix mupirocin 1:1 with clobetsol ointment before applying them to your rash. For less severe rash/itch, use triamcinolone cream sent as a separate prescription. 30 g 3 omeprazole (PriLOSEC) 20 mg capsule Take 2 capsules (40 mg total) by mouth daily 60 capsule 11 oxybutynin XL (DITROPAN-XL) 10 mg 24 hr tablet Take 15 mg by mouth nightly permethrin (ELIMITE) 5 % cream APPLY FROM THE NECK DOWN AT NIGHT, WASH OFF IN THE MORNING, REPEAT IN 1 WEEK sildenafiL, pulm.hypertension, (REVATIO) 20 mg tablet Take 1 tablet (20 mg total) by mouth daily tamsulosin (FLOMAX) 0.4 mg extended release capsule Take 1 capsule (0.4 mg total) by mouth nightly (Patient not taking: Reported on 05/04/2023) tiZANidine (ZANAFLEX) 2 mg tablet TAKE 1 TABLET BY MOUTH EVERY 8 HOURS NEEDED FOR MUSCLE SPASM (Patient taking differently: Take 1 tablet (2 mg total) by mouth nightly) 60 tablet 0 triamcinolone (KENALOG) 0.1 % cream Apply topically 2 (two) times a day as needed for rash Or itch on the skin. Do not use on face, armpits, or groin. For more severe rash/itch, use clobetasol/mupirocin sent as a separate prescription. 453.6 g 2 turmeric root extract 500 mg capsule Take 1,000 mg by mouth nightly No Known Allergies Social History Tobacco Use Smoking status: Former Current packs/day: 0.00 Types: Cigarettes Start date: 1965 Quit date: 1966 Years since quittin.1 Smokeless tobacco: Never Substance and Sexual Activity Drug use: No Sexual activity: Defer Alcohol Use: Not At Risk (06/29/2022) AUDIT-C Frequency of Alcohol Consumption: Monthly or less Average Number of Drinks: 3 or 4 Frequency of Binge Drinking: Never Family History Problem Relation Age of Onset Heart failure Other Family history of Congestive heart failure; Heart disease Other Family history of Heart disease; Osteoarthritis Other Family history of Osteoarthritis; Osteoporosis Other Family history of Osteoporosis; Heart attack Mother Heart attack Father Heart attack Sister Review of Systems: 10 point ROS negative except for as per HPI Vitals: Most Recent : Vitals: 12/07/23 1758 BP: Pulse: 54 Resp: 19 Temp: SpO2: 97% Hemodynamics: MAP (mmHg): [92-118] 118 Pulmonary Support: O2 Therapy: None (Room air) Intake/Output: Intake/Output Summary (Last 24 hours) at 12/07/2023 1802 Last data filed at 12/07/2023 1745 Gross per 24 hour Intake -- Output 200 ml Net -200 ml Objective Physical exam: Physical Exam Vitals reviewed. Constitutional: General: He is not in acute distress. HENT: Head: Normocephalic and atraumatic. Comments: Tingling and tenderness right jaw without any signs of trauma Mouth/Throat: Mouth: Mucous membranes are moist. Pharynx: Oropharynx is clear. Eyes: General: No scleral icterus. Extraocular Movements: Extraocular movements intact. Pupils: Pupils are equal, round, and reactive to light. Cardiovascular: Rate and Rhythm: Normal rate and regular rhythm. Heart sounds: Normal heart sounds. Pulmonary: Effort: Pulmonary effort is normal. No respiratory distress. Breath sounds: Normal breath sounds. Abdominal: General: There is no distension. Palpations: Abdomen is soft. Musculoskeletal: General: Normal range of motion. Cervical back: Normal range of motion and neck supple. Skin: General: Skin is warm and dry. Neurological: Mental Status: He is alert. Mental status is at baseline. GCS: GCS eye subscore is 4. GCS verbal subscore is 5. GCS motor subscore is 6. Cranial Nerves: Dysarthria present. No facial asymmetry. Motor: Weakness present. Comments: LUE and LLE weaker compared to right Psychiatric: Mood and Affect: Mood normal. Behavior: Behavior normal. Lab/Radiology/Diagnostic Review: Recent Results (from the past 12 hour(s)) CBC with auto differential Collection Time: 12/07/23 1:30 PM Result Value Ref Range WBC 6.9 3.8 - 9.9 K/cumm Hgb 12.5 (L) 13.0 - 17.5 g/dL Hct 37.7 (L) 38.9 - 50.3 % Plt 216 150 - 400 K/cumm MPV 10.3 9.1 - 12.3 fL RBC 3.81 (L) 4.30 - 5.80 M/cumm MCV 99.0 (H) 81.3 - 96.4 fL MCH 32.8 27.1 - 33.3 pg MCHC 33.2 32.3 - 35.7 g/dL RDW CV 13.3 11.1 - 14.9 % RDW SD 48.4 (H) 35.7 - 48.1 fL NRBC abs 0.00 0.00 - 0.01 K/cumm Comprehensive metabolic panel Collection Time: 12/07/23 1:30 PM Result Value Ref Range Sodium 139 135 - 145 mmol/L Potassium, pl 4.8 3.3 - 4.9 mmol/L Chloride 105 97 - 110 mmol/L CO2 24 22 - 32 mmol/L Anion gap 10 2 - 15 mmol/L BUN 19 6 - 25 mg/dL Creatinine 1.50 (H) 0.80 - 1.30 mg/dL Glucose 115 70 - 199 mg/dL Calcium 8.7 8.5 - 10.3 mg/dL Bilirubin, total 0.2 0.1 - 1.2 mg/dL Protein, pl 6.2 (L) 6.5 - 8.5 g/dL Albumin 3.4 (L) 3.5 - 5.0 g/dL Alk phos 93 40 - 130 Units/L ALT 14 7 - 55 Units/L AST 29 10 - 50 Units/L Protime-INR Collection Time: 12/07/23 1:30 PM Result Value Ref Range PT 11.8 10.3 - 13.7 sec INR 1.04 0.90 - 1.20 aPTT Collection Time: 12/07/23 1:30 PM Result Value Ref Range aPTT 32 28 - 38 sec Troponin T high-sensitivity series (baseline, 2hr, 4hr, 6hr) Collection Time: 12/07/23 1:30 PM Result Value Ref Range Trop T hs 22 <=22 ng/L Differential, auto Collection Time: 12/07/23 1:30 PM Result Value Ref Range Neutrophil abs 3.6 1.5 - 6.5 K/cumm Imm gran abs 0.0 0.0 - 0.1 K/cumm Lymphocyte abs 2.2 0.8 - 3.3 K/cumm Monocyte abs 0.8 0.2 - 0.8 K/cumm Eosinophil abs 0.3 0.0 - 0.5 K/cumm Basophil abs 0.1 0.0 - 0.1 K/cumm Neutrophil pct 52.3 % Imm gran pct 0.1 % Lymphocyte pct 31.7 % Monocyte pct 11.0 % Eosinophil pct 4.2 % Basophil pct 0.7 % eGFR Collection Time: 12/07/23 1:30 PM Result Value Ref Range eGFR 47 mL/min/1.73 m2 Troponin T high-sensitivity 2-hour Collection Time: 12/07/23 2:50 PM Result Value Ref Range Trop T hs 24 (H) <=22 ng/L Trop T hs delta See Comment ng/L Trop T hs pct delta See Comment % Trop T hs interp See Comment Urinalysis reflex to microscopic and culture Urine Collection Time: 12/07/23 3:22 PM Specimen: Urine Result Value Ref Range Color, ur Straw Yellow Clarity, ur Clear Clear Specific gravity, ur 1.038 (H) 1.003 - 1.030 pH, urine 6.0 Protein, ur ql Negative Negative Glucose, ur ql Negative Negative Ketones, ur Negative Negative Bilirubin, ur Negative Negative Blood, ur Negative Negative Urobilinogen, ur <2.0 <2.0 mg/dL Nitrite, ur Negative Negative Leukocyte esterase, ur 2+ (A) Negative UA reflex comment Reflex to microscopic UA will be performed. Urinalysis, microscopic only Collection Time: 12/07/23 3:22 PM Result Value Ref Range WBC, ur 6-10 (A) 0 - 5 /HPF RBC, ur 3-5 (A) 0 - 2 /HPF Mucous, ur Present (A) Culture Reflex Comment Reflex conditions for urine culture (WBC >10) not met. POCT glucose Collection Time: 12/07/23 4:52 PM Result Value Ref Range Glucose, POC 97 70 - 199 mg/dL CTA/CTP Rapid Stroke (C) Result Date: 12/07/[address] evidence of stroke. No significant carotid artery stenosis. There is also of the noncontrast CT of the brain called emergency room physician at 1:10 PM, results of the CT angiogram rapid strokeprogram called to the emergency room physician at 1:30 PM. Electronically signed by: Beka Draper M.D. Assessment/Plan: Patient is a 78 y.o. male with Alzheimer, asthma, GERD/PUD, GE junction diverticulum, HLD, AAA, hypothyroidism, OA, seizure (last one in 1997) who presented to the ICU with chief complaint of acute right cerebral ischemic stroke. He is s/p TNK at 1330 of 12/07/2023. Neuro deficits improving. NEURO: # acute ischemic right cerebral stroke, POA - s/p TNK, post thrombolytic care with neuro checks - TTE with bubble study - bMRI - CTH 24 hours post TNK - NPO till speech eval for dysarthria #Alzheimer, POA - hold home donepezil till passes swallow eval #Insomnia, POA - hold home melatonin till passes swallow eval #depression, POA - hold home mirtazapine till passes swallow eval # acute pain - prn tylenol suppository CV: #HLD, POA - hold home pravastatin till passes swallow eval - lipid panel #HTN, POA - permissive HTN, prn labetalol and hydralazine for SBP< 175 #AAA, POA - HTN control when post acute stroke - statin PULM: #asthma - replace home inhalers, resume prn albuterol GI: Diet: NPO Bowel regimen: holding PUD PPx: protonix #GERD/ PUD, POA - protonix ENDO: ICU SSI RENAL: BUN/Cr - 19/ 1.5 Fluid balance goal: even Maintenance IV fluids: D5 NS Electrolyte repletion orders: K to 4, mag to 2, phos to 3 HEME: HH - 12.5/ 32 Plt - 216 Hold chemical DVT ppx/ ASA ID: WBC - 6.9 Antibiotics: none Cultures: none Intensive Care Unit Standards of Care: Restraints: none DVT prophylaxis: on hold Vascular access: PIV Goals of care: FULL Assessment and plan has been reviewed with attending, Samuel Doyle MD [facility] fellow Procedures Cosigned by Maxi Carrion MD at 12/10/2023 1:55 PM RAG 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 documented in this encounter Procedure Notes * Bernard Casillas MD - 12/07/2023 10:02 PM CSTAssociated Order(s): Critical Care Post-Procedure Diagnose(s): Acute CVA (cerebrovascular accident) (HCC) Critical Care Performed by: Bernard Casillas MD Authorized by: Bernard Casillas MD CRITICAL CARE: Team: NE Shift: PM Level of Billing: Critical Care My time spent with this patient was 30 minutes: Critical Provider Statement: I have seen and examined the patient on this day of service. I have reviewed and confirmed the history, physical exam, laboratory and radiologic data as documented in thesigned ICU note. I have reviewed and discussed my treatment plan with the ICU team and other medical/solutions sales consultant staff, making frequent assessments and decisions regarding this patient's complex medical care. Critical Care time was exclusive of time spent performing separately billed procedures, treating other patients, and teaching. This time was in addition to and separate from critical care provided by other practitioners in my group on this day of service. Critical Care was necessary to treat or prevent imminent or life-threatening deterioration of the following conditions: Acute cerebrovascular accident (CVA) This time was spent by me doing the following: Acute stroke management and Frequent neurologic exams I spent time reviewing and interpreting data from bedside monitors, laboratory results, and imaging 78 YOM with a PMHx of Alzheimer's dementia, asthma, peptic ulcer disease, hiatal hernia, GERD, hypothyroidism, and PVD who presented on 12/07 with left sided weakness s/p TNK administration. Resumed home medications overnight. Continuing to hold all anticoagulants and antiplatelets for 24 hours. Monitor in ICU with Q1H neurochecks pending stability CT. 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 documented in this encounter Consult Notes * Nayan Mahajan II, MD - 12/07/2023 1:44 PM CST [facility] Neurology Gunjan Gtz Jr. CONSULTATION 12/07/2023 OV: Consultation at the request of Dr. Severino Mejía for an opinion regarding stroke. I have personally taken a history, examined the patient and determined the assessment and plan as outlined below. Chief Complaint. Chief Complaint Patient presents with Stroke Altered Mental Status Weakness - Generalized Lwkn at 1000 HPI. Patient is a 78 y.o. male patient of This is a patient who presented to the emergency room December 07, 2023 at 1:02 p.m. for an acute stroke. The patient reported sudden onset of difficulty with speech left arm weakness and left leg weakness. The last known well was 10:00 a.m. today. He would gone to see his orthopedic surgeon when he noted weakness of the left hand and arm and trouble reaching up to put the blink her on and when he tried to open the car door with his left hand he is struggled to do this because his left arm and hand were weak. He would difficulty getting up out of the car because of weakness of the left leg. He stated the ground and could not get him self up he would to pull himself up on the car door set himself back in the car and called the orthopedic surgeon service and 911 was called. Was brought to the emergency room. The patient was seen by Dr. Mejía. I talked with the emergency room physician tele stroke was consulted and the patient was given tenecteplase and neurology consultation is requested. He had an NIH stroke scale of 8 his blood pressure on admission 130/84 mm Hg respiratory rate 14 per minute pulse rate 72 per minute temperature 98.6?? F. I have reviewed the tele stroke consultation as well. I have also reviewed the CT of the head CTA of the head and neck. No acute ischemia was seen no large vessel occlusion was present no significantstenosis of the carotid vessels were identified as well. CMP is in process CBC white count 6.9 hemoglobin 12.5 hematocrit 37.7 platelet count was 216. Past Medical History: Diagnosis Date Acute gastric ulcer without hemorrhage or perforation Ulcer, gastric, acute - (Added by TW Conv) Alzheimer's dementia ([facility]) Asthma Back pain Cataract Closed fracture of left tibial plateau with delayed healing Closed fracture of right tibial plateau with delayed healing Closed nondisplaced osteochondral fracture of left patella with delayed healing Closed osteochondral fracture of patella, right, with delayed healing, subsequent encounter Clotting disorder (CMS/[facility]) ([facility]) Complex tear of medial meniscus of left knee as current injury Complex tear of medial meniscus of right knee as current injury Cramps of lower extremity Diverticulitis of colon Easy bruisability Fatigue Frequent urination Gastroesophageal reflux disease GERD Hypothyroidism Incontinence of urine Muscle weakness Osteoarthritis Osteoarthritis Peptic ulcer Peptic ulcer disease Seizures ([facility]) 1997 last seizure in 1997 SOB (shortness of breath) on exertion Subchondral insufficiency fracture of condyle of left femur (CMS/[facility]) ([facility]) Vertigo Vision changes Visual disturbance hx of double vision, corrective lenses Past Surgical History: Procedure Laterality Date CATARACT EXTRACTION, BILATERAL Bilateral 2018 HERNIA REPAIR 1979 Hiatal Hernia repair KNEE ARTHROSCOPY Bilateral THYROIDECTOMY 12/27/2019 HOME MEDICATIONS : gabapentin (NEURONTIN) 300 mg capsule pravastatin (PRAVACHOL) 10 mg tablet spironolactone (ALDACTONE) 25 mg tablet zolpidem (AMBIEN) 5 mg tablet Advair HFA 230-21 mcg/actuation inhaler albuterol HFA (PROVENTIL HFA,VENTOLIN HFA,PROAIR HFA) 90 mcg/actuation inhaler azithromycin (ZITHROMAX) 250 mg tablet capsaicin 0.1 % cream cetirizine (ZyrTEC) 10 mg tablet cholecalciferol (VITAMIN D-3) 2000 unit capsule clobetasoL (TEMOVATE) 0.05 % ointment donepeziL (ARICEPT) 10 mg tablet eszopiclone (LUNESTA) 2 mg tablet Flovent HFA 44 mcg/actuation inhaler furosemide (LASIX) 20 mg tablet levothyroxine (SYNTHROID) 150 mcg tablet lidocaine (ASPERCREME) 4 % adhesive patch,medicated melatonin 10 mg tablet mirtazapine (REMERON) 7.5 mg tablet mupirocin (BACTROBAN) 2 % ointment omeprazole (PriLOSEC) 20 mg capsule oxybutynin XL (DITROPAN-XL) 10 mg 24 hr tablet permethrin (ELIMITE) 5 % cream sildenafiL, pulm.hypertension, (REVATIO) 20 mg tablet tamsulosin (FLOMAX) 0.4 mg extended release capsule tiZANidine (ZANAFLEX) 2 mg tablet triamcinolone (KENALOG) 0.1 % cream turmeric root extract 500 mg capsule gabapentin (NEURONTIN) 100 mg capsule No Known Allergies Social History Tobacco Use Smoking status: Former Current packs/day: 0.00 Types: Cigarettes Start date: 1965 Quit date: 1966 Years since quittin.1 Smokeless tobacco: Never Substance and Sexual Activity Drug use: No Sexual activity: Defer Alcohol Use: Not At Risk (06/29/2022) AUDIT-C Frequency of Alcohol Consumption: Monthly or less Average Number of Drinks: 3 or 4 Frequency of Binge Drinking: Never Family History Problem Relation Age of Onset Heart failure Other Family history of Congestive heart failure; Heart disease Other Family history of Heart disease; Osteoarthritis Other Family history of Osteoarthritis; Osteoporosis Other Family history of Osteoporosis; Heart attack Mother Heart attack Father Heart attack Sister Review of Systems Constitutional: Negative for chills, decreased appetite, diaphoresis, fever, malaise/fatigue, nightsweats, weight gain and weight loss. HENT: Negative for congestion, hearing loss, hoarse voice, nosebleeds, sore throat and tinnitus. Eyes: Negative for blurred vision, double vision and visual halos. Cardiovascular: Negative for chest pain, claudication, dyspnea on exertion, irregular heartbeat, near-syncope, palpitations and syncope. Respiratory: Negative for cough, shortness of breath, sleep disturbances due to breathing and snoring. Endocrine: Negative for cold intolerance, heat intolerance, polydipsia, polyphagia and polyuria. Hematologic/Lymphatic: Negative for adenopathy and bleeding problem. Does not bruise/bleed easily. Skin: Negative for rash. Musculoskeletal: Negative for back pain, falls, joint pain, joint swelling, muscle cramps, muscle weakness, myalgias, neck pain and stiffness. Gastrointestinal: Negative for abdominal pain, bowel incontinence, constipation, diarrhea, dysphagia, jaundice, nausea and vomiting. Genitourinary: Negative for bladder incontinence, decreased libido, dysuria, flank pain, frequency,hematuria, hesitancy and incomplete emptying. Neurological: Positive for focal weakness. Negative for aphonia, brief paralysis, difficulty with concentration, disturbances in coordination, excessive daytime sleepiness, dizziness, headaches, light-headedness, loss of balance, numbness, paresthesias, seizures, sensory change, tremors, vertigo and weakness. Psychiatric/Behavioral: Negative for altered mental status, depression, hallucinations, memory loss, substance abuse and suicidal ideas. The patient does not have insomnia and is not nervous/anxious. Allergic/Immunologic: Negative for environmental allergies and HIV exposure. Physical Exam Vitals reviewed. Constitutional: Appearance: Normal appearance. He is well-developed. HENT: Head: Normocephalic and atraumatic. Nose: Nose normal. Eyes: Extraocular Movements: Extraocular movements intact and EOM normal. Pupils: Pupils are equal, round, and reactive to light. Cardiovascular: Rate and Rhythm: Normal rate and regular rhythm. Pulmonary: Effort: Pulmonary effort is normal. Breath sounds: Normal breath sounds. Abdominal: Palpations: Abdomen is soft. Musculoskeletal: Cervical back: Normal range of motion. Right lower leg: No edema. Left lower leg: No edema. Skin: General: Skin is warm. Findings: No rash. Neurological: Mental Status: He is alert and oriented to person, place, and time. Coordination: Dozpkl-Rakx-Usczua Test abnormal. Heel to Hodges Test normal. Deep Tendon Reflexes: Reflex Scores: Tricep reflexes are 1+ on the right side and 1+ on the left side. Bicep reflexes are 1+ on the right side and 1+ on the left side. Brachioradialis reflexes are 1+ on the right side and 1+ on the left side. Patellar reflexes are 1+ on the right side and 1+ on the left side. Achilles reflexes are 1+ on the right side and 1+ on the left side. Psychiatric: Speech: Speech normal. Neurologic Exam Mental Status Oriented to person, place, and time. Speech: speech is normal Level of consciousness: alert Knowledge: good and consistent with education. Normal comprehension. Cranial Nerves CN II Visual white full to confrontation. CN III, IV, Pupils are equal, round, and reactive to light. Extraocular motions are normal. Right pupil: Shape: regular. Reactivity: brisk. Left pupil: Shape: regular. Reactivity: brisk. CN III: no CN III palsy CN : no CN palsy Nystagmus: none Diplopia: none Ophthalmoparesis: none CN V Facial sensation intact. CN VII Left facial weakness: central CN VIII CN VIII normal. Hearing: intact CN IX, X CN IX normal. CN X normal. Palate: asymmetric CN XI CN XI normal. Right sternocleidomastoid strength: normal Left sternocleidomastoid strength: normal CN XII CN XII normal. Tongue: not atrophic Motor Exam Muscle bulk: normal Overall muscle tone: normal Right arm pronator drift: absent Left arm pronator drift: absent Right leg tone: normal Left leg tone: normal Strength Strength 5/5 except as noted. There is a left hemiparesis with a power of 4/5 there is a drift of the left leg no drift of the left upper extremity but he has difficulty with djbmta-fawf-nypreo testing because of weakness. Sensory Exam Light touch normal. Pinprick normal. Gait, Coordination, and Reflexes Coordination Finger to nose coordination: abnormal Heel to hodges coordination: normal Tremor Resting tremor: absent Intention tremor: absent Action tremor: absent Reflexes Right brachioradialis: 1+ Left brachioradialis: 1+ Right biceps: 1+ Left biceps: 1+ Right triceps: 1+ Left triceps: 1+ Right patellar: 1+ Left patellar: 1+ Right achilles: 1+ Left achilles: 1+ Right class a regional truck driver: 1+ Left class a regional truck driver: 1+ Right plantar: normal Left plantar: normal Right ankle clonus: absent Left ankle clonus: absentParetic ataxia of the left upper extremity in vaiwnj-kjfq-usghpe testing Impression and Recommendations. 1. Acute right cerebral infarction status post thrombolytic therapy. The patient is showing signs of improvement. His stroke risk factors include age as well as dyslipidemia. He will be on the strokeand tPA pathway. Further workup will include an MRI of the brain and a transthoracic echocardiogram with bubble study. After the [address] head if this shows no hemorrhage anti-platelet will be started unless there is a contraindication. Lipid panel and hemoglobin A1c will be reviewed once available. Continue suppo rtive care. Thank you for allowing me to participate in your patient's care will follow this patient with you as often as needed. Nayan Mahajan II, MD 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 * Chayo Epperson MD - 12/07/2023 1:39 PM CST Images from the original note were not included. [facility]ation Note Patient Name: Gunjan Gtz Jr. Date of : 1945 Date of Service: 12/07/2023 Telestroke Documentation Consult Start Time: 1305 Consult Stop Time: 1313 Consult Time Calculation (min): 8 min Name of Requesting Provider: Alfonzo Video Used? : No Imaging Reviewed?: Yes Total Time Spent Coordinating Patient Care: 25 minutes (12/07/23 1335) Subjective HPI: Patient is a 78 y.o. male with PVD and dementia presenting with acute onset left-sided weakness. Patient was driving when he noticed that he had trouble reaching for the turn signal with his left hand and then had difficulty opening the car door with his left hand. Upon standing, he realized his left leg was week, and he slid to the ground. Last known well Date Last Known Well : 12/07/23 Time Last Known Well: 1000 Discovery of Symptoms - Time: 1000 (12/07/23 1318) PMH/Vascular Risk Factors: PVD (Not in a hospital admission) No current facility-administered medications for this encounter. Current Outpatient Medications Medication Sig Dispense Refill gabapentin (NEURONTIN) 300 mg capsule Take 2 capsules (600 mg total) by mouth 3 (three) times a day pravastatin (PRAVACHOL) 10 mg tablet Take 1 tablet (10 mg total) by mouth daily spironolactone (ALDACTONE) 25 mg tablet Take 1 tablet (25 mg total) by mouth daily zolpidem (AMBIEN) 5 mg tablet Take 1 tablet (5 mg total) by mouth nightly at bedtime. Advair HFA 230-21 mcg/actuation inhaler Inhale 2 puffs 2 (two) times a day albuterol HFA (PROVENTIL HFA,VENTOLIN HFA,PROAIR HFA) 90 mcg/actuation inhaler 2 puffs every 4 (four) hours as needed azithromycin (ZITHROMAX) 250 mg tablet TAKE 2 TABLETS BY MOUTH ON DAY 1, AND THEN TAKE 1 TABLET BY MOUTH ONCE A DAY ON DAY 2 THROUGH DAY 5 capsaicin 0.1 % cream Apply to your [...] as a separate prescription. 60 g 3 donepeziL (ARICEPT) 10 mg tablet Take 1 tablet by mouth nightly 30 tablet 0 eszopiclone (LUNESTA) 2 mg tablet BRING TABLET WITH YOU TO SLEEP LAB Flovent HFA 44 mcg/actuation inhaler INHALE 2 PUFFS BY MOUTH TWICE DAILY EVERY 12 HOURS furosemide (LASIX) 20 mg tablet Take 1 tablet (20 mg total) by mouth 2 (two) times a day levothyroxine (SYNTHROID) 150 mcg tablet Take 1 tablet (150 mcg total) by mouth daily lidocaine (ASPERCREME) 4 % adhesive patch,medicated Place 1 patch on the skin daily for 12 days 12 patch 0 melatonin 10 mg tablet Take 1 tablet (10 mg total) by mouth nightly mirtazapine (REMERON) 7.5 mg tablet TAKE 1 TABLET BY MOUTH ONCE DAILY AT NIGHT mupirocin (BACTROBAN) 2 % ointment Apply topically 2 (two) times a day If your most severe itchy rash has yellow crusts/flakes, then mix mupirocin 1:1 with clobetsol ointment before applying them to your rash. For less severe rash/itch, use triamcinolone cream sent as a separate prescription. 30 g 3 omeprazole (PriLOSEC) 20 mg capsule Take 2 capsules (40 mg total) by mouth daily 60 capsule 11 oxybutynin XL (DITROPAN-XL) 10 mg 24 hr tablet Take 15 mg by mouth nightly permethrin (ELIMITE) 5 % cream APPLY FROM THE NECK DOWN AT NIGHT, WASH OFF IN THE MORNING, REPEAT IN 1 WEEK sildenafiL, pulm.hypertension, (REVATIO) 20 mg tablet Take 1 tablet (20 mg total) by mouth daily tamsulosin (FLOMAX) 0.4 mg extended release capsule Take 1 capsule (0.4 mg total) by mouth nightly (Patient not taking: Reported on 05/04/2023) tiZANidine (ZANAFLEX) 2 mg tablet TAKE 1 TABLET BY MOUTH EVERY 8 HOURS NEEDED FOR MUSCLE SPASM (Patient taking differently: Take 1 tablet (2 mg total) by mouth nightly) 60 tablet 0 triamcinolone (KENALOG) 0.1 % cream Apply topically 2 (two) times a day as needed for rash Or itch on the skin. Do not use on face, armpits, or groin. For more severe rash/itch, use clobetasol/mupirocin sent as a separate prescription. 453.6 g 2 turmeric root extract 500 mg capsule Take 1,000 mg by mouth nightly Objective Vitals: Patient Vital Signs for the past 24 hrs: BP Temp Pulse Resp SpO2 Height Weight 12/07/23 1327 130/84 -- -- -- -- -- -- 12/07/23 1319 130/84 37 ??C (98.6 ??F) 72 14 98 % -- -- 12/07/23 1315 130/74 37 ??C (98.6 ??F) -- 14 97 % 180.3 cm (5' 10.98 ) 104.3 kg (230 lb) NIHSS: NIH Stroke Scale Interval: Baseline Level of Consciousness (1a.): Alert, keenly responsive LOC Questions (1b.): Answers both questions correctly LOC Commands (1c.): Performs both tasks correctly Best Gaze (2.): Normal Visual (3.): No visual loss Facial Palsy (4.): Minor paralysis Motor Arm, Left (5a.): Some effort against gravity Motor Arm, Right (5b.): No drift Motor Leg, Left (6a.): Drift Motor Leg, Right (6b.): No drift Limb Ataxia (7.): Present in two limbs Sensory (8.): Uike-ab-fnusorpj sensory loss, patient feels pinprick is less sharp or is dull on theaffected side, or there is a loss of superficial pain with pinprick, but patient is aware of being touched Best Language (9.): No aphasia Dysarthria (10.): Gfti-dp-zdgnoajv dysarthria, patient slurs at least some words and, at worst, canbe understood with some difficulty Extinction and Inattention (11.) (Formerly Neglect): No abnormality Total: 8 (12/07/23 1247) Other exam findings: Imaging Interpretation: Head CT shows no acute changes. CTA shows no LVO. CT Head preliminary read for lytic treatment (Read to Treat)? N/A Labs: Lab Results Lab Value Date/Time GLUCOSE 116 10/12/2023 0445 PT 11.3 11/18/2021 0907 INR 1.0 11/18/2021 0907 Hematology Lab History Latest Ref Rng & Units 10/10/2023 23:32 10/11/2023 10/12/2023 04:45 10/13/2023 06:04 Labs - Hematology WBC 3.8 - 9.9 K/cumm 9.1 7.8 9.8 7.9 Total Hb, POC 13.0 - 17.5 g/dL 12.9 13.3 11.3 11.7 Hct 38.9 - 50.3 % 39.6 41.4 34.7 35.2 Plt 150 - 400 K/cumm 250 241 233 242 Neutrophil abs 1.5 - 6.5 K/cumm 5.0 4.4 5.9 3.8 Lymphocytes, abs 0.8 - 3.3 K/cumm 2.7 2.2 2.6 2.9 Details More abnormal values are hidden. Newest values shown. Go to activity for more data. Other notable labs: Medical Decision Making: Recommendations Thrombolytic Recommended: Yes Thrombolytic Recommended Time: 1313 (assuming no contraindications once pt returns from CT and getsvital signs and blood glucose) Thrombectomy Decision: No Thrombectomy Exclusion Criteria: No large vessel occlusion amenable to thrombectomy (12/07/23 1335) Assessment/Plan: Mr. Gtz is a 78yo man with PVD, dementia who had acute onset left-sided weakness. NIHSS 8. Head CT shows no acute changes. CTA shows no LVO. CTP 0/0. Suspect acute stroke. Patient is a candidate for IV thrombolysis. Consider the following for stroke evaluation/management: Post-thrombolysis precautions, nursing checks, and BP management After thrombolysis precautions are up, 325 mg of aspirin if passes a swallow screen or aspirin suppository if does not pass a swallow screen High intensity statin Brain MRI to evaluate for infarct Telemetry monitoring for atrial fibrillation/flutter Carotid imaging already performed (no significant carotid disease) Transthoracic echocardiogram if patient has history of heart disease or has an abnormal cardiac exam or an abnormal heart on EKG or chest x-ray. Lipid panel and hemoglobin A1c PT/OT/ST evaluation for post-discharge therapy recommendations If patient experiences neurological worsening or develops new headache, nausea/vomiting, or blood pressure spike after thrombolytic administration, obtain stat head CT, and draw blood for CBC, PT/INR, aPTT, fibrinogen, and type and cross. Please call back to telestroke team if patient's exam worsens or if neuroimaging demonstrates any findings of concern. Total time spent coordinating care 25 minutes. Chayo Epperson MD [facility] Telestroke Service For follow up questions please call the [facility] Transfer Center and ask to speak with the on-call physician for Telestroke 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 documented in this encounter Nursing Notes * Owen Hu, MARAH - 12/15/2023 1:36 PM CST Impression: Patient re-evaluated by DAYO RN due to increase risk for impaired skin integrity. Hood Score: 16. Contributing history includes: AAA, PVD, Anemia, CVA. Skin appears free from Makenna at this time. Plan: Continue pressure prevention orders- Q2 turns, waffle mattress, absorbant pads, and prevalon boots. Goal: Pressure relief. Moisture management. 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 * Ever Ventura, MARAH - 12/09/2023 4:39 AM CST Pt was transported to room 726, NIH was done at bedside with accepting nurse, pt was fully aware ofsituation, and bedpad was changed upon arrival. All belongings were transported with pt. VSS and pthad no complaints of pain. 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 * Owen Hu RN - 12/08/2023 9:25 AM CST Impression: Patient evaluated by DAYO RN due to increase risk for impaired skin integrity. Hood Score: 15. Contributing history includes: AAA, PVD, Anemia, CVA. Skin appears free from Makenna at this time. Plan: Continue pressure prevention orders- Q2 turns, waffle mattress, absorbant pads, and prevalon boots. Goal: Pressure relief. Moisture management. 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 documented in this encounter ED Notes * Severino Mejía DO - 12/07/2023 1:02 PM CSTAssociated Order(s): Critical Care HPI Chief Complaint Patient presents with Stroke Altered Mental Status Weakness - Generalized Lwkn at 1000 HPI 1:28 PM - Gunjan Gtz Jr. is a 78 y.o. male patient presenting to the ED via EMS from the parking lot, complaining of sudden onset of difficulty with his speech, left arm weakness, left leg weakness LKW 10:00 a.m. today Patient was driving his car and had pulled up to the parking lot to see his orthopedic surgeon today, when he realized that he had developed weakness in the left hand and arm. He noticed he had trouble reaching up to put the blinker on, and then when he tried to open the car door with his left handhe struggled to do this because the arm was weak. He tried to get up out of the car and realized his left leg was weak also. He slid to the ground, but he was unable to help himself back up by pulling himself up on the open car door. He sat himself back down in the car, called his orthopedic surgeon's office, and they called 911. CODE STROKE activated by EMS. Past medical history noted for asthma, GERD, dementia, diverticulosis Patient denies any vision loss, no headache, no vomiting, no chest pain or shortness of breath. No palpitations. No abdominal pain. Denies peripheral edema. Patient History: Past Medical History: Diagnosis Date Acute gastric [...] fracture of condyle of left femur (CMS/HCC) ([facility]) Vertigo Vision changes Visual disturbance hx of double vision, corrective lenses Past Surgical History: Procedure Laterality Date CATARACT EXTRACTION, BILATERAL Bilateral 2018 HERNIA REPAIR 1979 Hiatal Hernia repair KNEE ARTHROSCOPY Bilateral THYROIDECTOMY 12/27/2019 Family History Problem Relation Age of Onset Heart failure Other Family history of Congestive heart failure; Heart disease Other Family history of Heart disease; Osteoarthritis Other Family history of Osteoarthritis; Osteoporosis Other Family history of Osteoporosis; Heart attack Mother Heart attack Father Heart attack Sister Social History Tobacco Use Smoking status: Former Current packs/day: 0.00 Types: Cigarettes Start date: 1965 Quit date: 1966 Years since quittin.1 Smokeless tobacco: Never Substance and Sexual Activity Drug use: No Sexual activity: Defer Alcohol Use: Not At Risk (06/29/2022) AUDIT-C Frequency of Alcohol Consumption: Monthly or less Average Number of Drinks: 3 or 4 Frequency of Binge Drinking: Never Review of Systems Review of Systems Physical Exam ED Triage Vitals Temp Pulse Resp BP SpO2 12/07/23 1319 12/07/23 1319 12/07/23 1319 12/07/23 1319 12/07/23 1319 37 ??C (98.6 ??F) 72 14 130/84 98 % Temp src Heart Rate Source Patient Position BP Location FiO2 (%) -- -- -- -- -- Height Height Method Weight Weight Method 12/07/23 1315 12/07/23 1315 12/07/23 1315 12/07/23 1315 1.803 m (5' 10.98 ) Estimated 104.3 kg (230 lb) EMS stretcher scale Physical Exam Vitals and nursing note reviewed. Exam conducted with a staffing recruiter present (ED RN x2 at bedside). Constitutional: General: He is in acute distress. Appearance: He is well-developed. He is ill-appearing. He is not toxic-appearing or diaphoretic. HENT: Head: Normocephalic and atraumatic. Right Ear: External ear normal. Left Ear: External ear normal. Mouth/Throat: Mouth: Mucous membranes are moist. Eyes: General: No scleral icterus. Right eye: No discharge. Left eye: No discharge. Extraocular Movements: Extraocular movements intact. Conjunctiva/sclera: Conjunctivae normal. Pupils: Pupils are equal, round, and reactive to light. Cardiovascular: Rate and Rhythm: Normal rate and regular rhythm. Pulses: Normal pulses. Heart sounds: Normal heart sounds. Pulmonary: Effort: Pulmonary effort is normal. No respiratory distress. Breath sounds: Normal breath sounds. Abdominal: General: Bowel sounds are normal. There is no distension. Palpations: Abdomen is soft. Tenderness: There is no abdominal tenderness. Musculoskeletal: General: No swelling. Cervical back: Normal range of motion and neck supple. Skin: General: Skin is warm and dry. Capillary Refill: Capillary refill takes less than 2 seconds. Neurological: Mental Status: He is alert and oriented to person, place, and time. Comments: NIHSS = 8 Gait not evaluated. Psychiatric: Mood and Affect: Mood normal. Behavior: Behavior normal. Critical Care Performed by: Severino Mejía DO Authorized by: Severino Mejía DO Critical care provider statement: As reflected in the history, physical exam, orders, notes, and/or MDM, I was personally present while the patient was critically ill and provided critical care services for 48 minutes, excluding timeinvolved in separately billable procedures. Critical care was necessary to treat or prevent imminent or life- threatening deterioration of the following condition(s): acute cerebrovascular accident (CVA) Management of CODE STROKE Critical care was time spent by me providing the following: continuous telemetry, continuous pulse oximetry and serial bedside patient exams frequent neurologic exams, decision regarding acute lytic therapy and initiation of stroke management decision regarding NPO status initiation of lytic therapy I provided emergent necessary critical care medicine services to this patient. I ordered and reviewed test results and/or imaging studies. I spent time discussing the management of this critically ill patient with consultants and the medical staff. I spent time discussing the management and therapeutic options for this critically ill patient with the patient themselves or with the appropriate designated surrogate decision-maker. I spent time documenting in the medical record. I admitted this patient to an Intensive Care unit (ICU) and discussed management with the admitting team. MDM Labs Reviewed URINALYSIS AND REFLEX TO MICROSCOPIC AND CULTURE CBC WITH AUTO DIFFERENTIAL COMPREHENSIVE METABOLIC PANEL PROTIME-INR APTT TROPONIN T HIGH-SENSITIVITY SERIES (BASELINE, 2HR, 4HR, 6HR) POCT GLUCOSE DEVICE EKG Time 1:21 p.m. Normal sinus rhythm 72 beats per minute Normal axis Nonspecific ST-T changes Occasional PVCs unifocal No STEMI Interpretation by me CTA/CTP Rapid Stroke (C) (Results Pending) BP 130/84 Pulse 72 Temp 37 ??C (98.6 ??F) Resp 14 Ht 180.3 cm (5' 10.98 ) Wt 104.3 kg (230 lb) SpO2 98% BMI 32.09 kg/m?? [facility] Amount and/or Complexity of Data Reviewed Clinical lab tests: ordered Tests in the radiology section of CPT??: ordered Tests in the medicine section of CPT??: ordered Decide to obtain previous medical records or to obtain history from someone other than the patient:yes Review and summarize past medical records: yes Independent visualization of images, tracings, or specimens: yes Risk of Complications, Morbidity, and/or Mortality Presenting problems: high Diagnostic procedures: high Management options: high Differential diagnosis includes but is not limited to acute ischemic CVA, hemorrhagic CVA, ICH, intracranial mass, electrolyte disturbance 1303 Paged tele stroke service. 1308 Discussed with tele stroke neurologist. Agreed with proceeding with TNK, assuming no reason for exclusion. 1:18 p.m. Reviewed inclusion and exclusion criteria with the patient. No exclusion or relative exclusion criteria. Discussed risks and benefits of TNK with the patient, including debility and , bleeding complications. Patient wishes to proceed with TNK. 1:26 p.m. TNK ordered, pharmacist at bedside. [address] Draper, radiology service, no LVO [address] Mahajan 1:[address] Mahajan of the patient's clinical presentation. He will consult. 1:44 p.m. Paged critical care physician 1:47 P.M. Accepted to ICU by Dr. Carrion Impression: Acute CVA (cerebrovascular accident) (HCC) Severino Mejía DO 12/07/23 1347 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 documented in this encounter Miscellaneous Notes * Plan of Care - Indira Vera RN - 12/15/2023 12:36 PM CST Patient was accepted with [facility] and is able to d/c there today and will go into room 208. COVID test is negative, FOB negative, and he had a bowel movement last night. [facility] RASHID Johnson-RN, Nurse Blocker Hand [phone] 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 * Plan of Care - Norma Saul RN - 12/15/2023 9:33 AM CST Goals: Clinical Goals for the Shift: Continue Q8 neuro checks with improvement, maintain safety and comfort, discharge planning Machine Grinder Patient Centered Goal for Treatment: discharge Summary: Patient to be discharged to [facility] to continue therapy. Pt educated on stroke symptoms and his risk factors. Patient's neuro checks continued Q8. Q2 turns performed to prevent skin breakdown. Care continued. 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 * Plan of Care - Paresh Prieto SLP - 12/15/2023 9:31 AM CST Problem: Cognitive/Linguistics Goal: STG - Patient will recall new information Description: With 80% accuracy Outcome: Progressing Goal: STG - Patient will participate in further assessment of cognitive- linguistic skills Outcome: Progressing Problem: Communication/Motor Speech Goal: STG - Patient will participate in oral-motor exercises to improve strength Outcome: Progressing 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 * Plan of Care - Chapis Mcknight LPN - 12/15/2023 4:22 AM CST Problem: Discharge Planning Goal: Understanding discharge needs will improve Outcome: Ongoing Problem: Fall Risk Goal: Ability to state ways to decrease the risk of falls will improve Outcome: Ongoing Goal: Will remain free from falls Outcome: Ongoing Goal: Will remain free from injury from falls Outcome: Ongoing Problem: Lack of Knowledge Goal: Ability to develop a pain control plan will improve Outcome: Ongoing Problem: Medication Goal: Satisfaction with pain management medication regimen will improve Outcome: Ongoing Problem: Sensory Goal: Ability to identify factors that increase pain levels will improve while working to decrease the patient's pain levels Outcome: Ongoing Problem: Coping Goal: Ability to cope will improve Outcome: Ongoing Problem: Health Behavior Goal: Identification of resources available to assist in meeting health care needs will improve Outcome: Ongoing Problem: Activity: Goal: Capacity to carry out activities will improve Outcome: Ongoing Goal: Mobility will improve Outcome: Ongoing Goal: Range of joint motion will improve Outcome: Ongoing Problem: Lack of Knowledge: Goal: Verbalization of understanding the information provided will improve Outcome: Ongoing Problem: Coping: Goal: Ability to verbalize positive feelings about self will improve Outcome: Ongoing Goal: Ability to identify appropriate support needs will improve Outcome: Ongoing Goal: Ability to identify strategies to decrease anxiety will improve Outcome: Ongoing Problem: Health Behavior: Goal: Ability to manage health-related needs will improve Outcome: Ongoing Problem: Nutritional: Goal: Dietary intake will improve Outcome: Ongoing Problem: Physical Regulation: Goal: Ability to maintain clinical measurements within normal limits will improve Outcome: Ongoing Goal: Complications related to the disease process, condition or treatment will be avoided or minimized Outcome: Ongoing Problem: Role Relationship: Goal: Ability to communicate needs accurately will improve Outcome: Ongoing Goal: Ability to reevaluate and adapt role responsibilities will improve Outcome: Ongoing Problem: Safety: Goal: Ability to remain free from injury will improve Outcome: Ongoing Problem: Self-Care: Goal: Ability to participate in self-care as condition permits will improve Outcome: Ongoing Goal: Verbalization of feelings and concerns over difficulty with self-care will improve Outcome: Ongoing Problem: Skin Integrity: Goal: Risk for impaired skin integrity will decrease Outcome: Ongoing Problem: Tissue Perfusion: Goal: Neurologic status will improve Outcome: Ongoing Goal: Risk of venous thrombosis will decrease Outcome: Ongoing Problem: Skin Integrity Impairment Risk Goal: Mobility will improve Outcome: Ongoing Goal: Understanding of ways to prevent future skin breakdown will improve Outcome: Ongoing Goal: Nutritional status will improve Outcome: Ongoing Goal: Risk for impaired skin integrity will decrease Outcome: Ongoing Problem: Neurosensory Goal: Achieves stable or improved neurological status Outcome: Ongoing Goal: Absence of seizures Outcome: Ongoing Goal: Achieves maximal functionality and self care Outcome: Ongoing Goals: Clinical Goals for the Shift: Q8 NEURO CHRCKS, MONITOR PAIN comfort/safety Group Home Patient Centered Goal for Treatment: discharge Summary: All goals were met.No acute changes. 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 * Plan of Care - Andreia Nicolas RN - 12/14/2023 5:28 PM CST Problem: Discharge Planning Goal: Understanding discharge needs will improve Outcome: Progressing Goals: Clinical Goals for the Shift: safety;comfort Group Home Patient Centered Goal for Treatment: discharge pt had covid test sent and was given pericolace,laculose and miralax today and still no results. Will transfer to [facility] when fob and bm obtained. Summary: Problem: Discharge Planning Goal: Understanding discharge needs will improve Outcome: Progressing Problem: Fall Risk Goal: Ability to state ways to decrease the risk of falls will improve Outcome: Progressing Goal: Will remain free from falls Outcome: Progressing Goal: Will remain free from injury from falls Outcome: Progressing Problem: Skin Integrity Impairment Risk Goal: Mobility will improve Outcome: Progressing Goal: Understanding of ways to prevent future skin breakdown will improve Outcome: Progressing Goal: Nutritional status will improve Outcome: Progressing Goal: Risk for impaired skin integrity will decrease Outcome: Progressing Problem: Lack of Knowledge Goal: [...] health care needs will improve Outcome: Progressing Problem: Activity: Goal: Capacity to carry out activities will improve Outcome: Progressing Goal: Mobility will improve Outcome: Progressing Goal: Range of joint motion will improve Outcome: Progressing Problem: Lack of Knowledge: Goal: Verbalization of understanding the information provided will improve Outcome: Progressing Problem: Coping: Goal: Ability to verbalize positive feelings about self will improve Outcome: Progressing Goal: Ability to identify appropriate support needs will improve Outcome: Progressing Goal: Ability to identify strategies to decrease anxiety will improve Outcome: Progressing Problem: Health Behavior: Goal: Ability to manage health-related needs will improve Outcome: Progressing Problem: Nutritional: Goal: Dietary intake will improve Outcome: Progressing Problem: Physical Regulation: Goal: Ability to maintain clinical measurements within normal limits will improve Outcome: Progressing Goal: Complications related to the disease process, condition or treatment will be avoided or minimized Outcome: Progressing Problem: Role Relationship: Goal: Ability to communicate needs accurately will improve Outcome: Progressing Goal: Ability to reevaluate and adapt role responsibilities will improve Outcome: Progressing Problem: Safety: Goal: Ability to remain free from injury will improve Outcome: Progressing Problem: Self-Care: Goal: Ability to participate in self-care as condition permits will improve Outcome: Progressing Goal: Verbalization of feelings and concerns over difficulty with self-care will improve Outcome: Progressing Problem: Skin Integrity: Goal: Risk for impaired skin integrity will decrease Outcome: Progressing Problem: Tissue Perfusion: Goal: Neurologic status will improve Outcome: Progressing Goal: Risk of venous thrombosis will decrease Outcome: Progressing Problem: Neurosensory Goal: Achieves stable or improved neurological status Outcome: Progressing Goal: Absence of seizures Outcome: Progressing Goal: Achieves maximal functionality and self care Outcome: Progressing Problem: Cardiovascular Goal: Maintains optimal cardiac output and hemodynamic stability Outcome: Progressing Goal: Absence of cardiac dysrhythmias or at baseline Outcome: Progressing 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 * Plan of Care - Alanna Cintron MSW - 12/14/2023 4:22 PM CST SW acknowledge consult for needs assistance with POA documentation. SW chart reviewed and it was noted in H&P and daily medical progress notes that patient has Alzheimer, POA. Given Alzheimer diagnosis SW is unable to proceed with POA. SW did inform patient and family (, daughters) at bedside of SW being unable to proceed. SW will continue to follow. Alanna Cintron LMSW Wood Room Supervisor Case Management 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 * Plan of Care - Paresh Prieto REGISTERED MEDICAL ASSISTANT - 12/14/2023 3:12 PM CST Problem: Cognitive/Linguistics Goal: STG - Patient will recall new information Description: With 80% accuracy Outcome: Progressing Goal: STG - Patient will participate in further assessment of cognitive- linguistic skills Outcome: Progressing Problem: Communication/Motor Speech Goal: STG - Patient will participate in oral-motor exercises to improve strength Outcome: Progressing 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 * Pre-Admission Screening - Sonja Hayward RN - 12/14/2023 2:06 PM RAG 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 [facility] Physical Medicine and Rehabilitation Preadmission Screening Reason for Consult: Gunjan Gtz Jr. is a 78 y.o. male with a medical diagnosis of Acute CVA and Rehab Diagnosis: CVA- Left Hemiparesis whose probable impairment code for inpatient rehabilitation is:Impairment Code Group: Stroke Stroke: Left Body Involvement (Right Brain) The following information was gathered for consideration and maintenance in the medical record to substantiate medical necessity for IRF level of care. Patient is currently at [id number] . The patient is being referred and recommended by Dr Mejia to be assessed both medically and functionally in regard to their premorbid functional capacity to determine whether they can benefit from a rehabilitation level of care offered by our facility. The following information is regarding the medical complexity and clinical risk factors that need to be considered for the appropriate management of the patient's care and recovery. RECOMMENDATIONS / PLAN: Goals for admission:To resolve medical issues to optimal level and to improve functional status to a Stand By level overall for transfers, self-care management, and ambulation short distances with assistive device. Likelihood of reaching these goals:VERY GOOD Medical Prognosis: Medical prognosis appears fairly good based on co-morbidities and ongoing medical issues such as: New CVA S/P TNK; Left Hemiparesis; Hypertension; Hyperlipidemia Functional Prognosis: Functional prognosis appears good to recover to a Stand BY level for self-care management, transfers and mobility with utilizing the least restrictive assistive device Therapies required to achieve goals:The patient will benefit from integrated coordination of care from the following interdisciplinary services: Medical Supervision, 24 hours Rehabilitation Nursing, Physical Therapy, Occupational Therapy, Case Management, Social Work, Therapeutic Recreation, SpeechTherapy, Bi Application Developer Expected level of improvement is: very good Expected level of improvement at discharge is: SBA Strengths for achieving goals: Strengths: Able to tolerate intensive inpatient rehab program, Good family/social support, Good premorbid functional status, Good premorbid medical status, Living in the community premorbidly, Motivated Barriers to achieving goals: Barriers: Comorbidities, Ability to acquire knowledge (BARRIERS TO DISCHARGE:Confusion, Limited safety awareness, & insight into deficits, Communication deficit, Decreased endurance, sensation, & proprioception, Upper & Lower extremity weak, Bladder Incontinence, Medical complicate,Stairs at Home,Skin Care) Expected length of stay: Estimated Length of Stay: 14 days When medically stable, anticipated disposition: Anticipated destination post discharge from inpatient rehab: community discharge with assist Information regarding the rehab process including risks/benefits and financial issues were discussed with the patient and/or family and they have agreed to accept rehabilitation risks and benefits. Payor Source: Primary: [facility] # [id number] Secondary: N/A Case discussed with Dr Price on 12/10/2023 updated 12/14/2023. Appropriateness for admission to the Inpatient Rehab Facility: yes The Pre-admission screen is an assessment of the patient's medical and functional status and has been reviewed by a rehab physician. It has been determined by the rehab physician that this patient will benefit from a comprehensive inpatient rehab admission to meet the identified goals and manage ongoing medical issues. The physician will provide documentation that supports an inpatient rehab admission including real and potential complications for which the patient is at risk with a plan to manage and avoid those risks HISTORY: Past Medical History: Past Medical History: Diagnosis Date Acute gastric [...] delayed healing, subsequent encounter Clotting disorder (CMS/HCC) ([facility]) Complex tear of medial meniscus of left knee as current injury Complex tear of medial meniscus of right knee as current injury Cramps of lower extremity Diverticulitis of colon Easy bruisability Fatigue Frequent urination Gastroesophageal reflux disease GERD Hypothyroidism Incontinence of urine Muscle weakness Osteoarthritis Osteoarthritis Peptic ulcer Peptic ulcer disease Seizures ([facility]) 1998 last seizure in 1997 SOB (shortness of breath) on exertion Subchondral insufficiency fracture of condyle of left femur (CMS/HCC) (HCC) Vertigo Vision changes Visual disturbance hx of double vision, corrective lenses Past Surgical History: Past Surgical History: Procedure Laterality Date CATARACT EXTRACTION, BILATERAL Bilateral 2018 HERNIA REPAIR 1979 Hiatal Hernia repair KNEE ARTHROSCOPY Bilateral THYROIDECTOMY 12/27/2019 Social History: Social History Tobacco Use Smoking status: Former Current packs/day: 0.00 Types: Cigarettes Start date: 1965 Quit date: 1966 Years since quittin.2 Smokeless tobacco: Never Substance and Sexual Activity Drug use: Yes Types: Alcohol Sexual activity: Defer Alcohol Use: Not At Risk (12/14/2023) AUDIT-C Frequency of Alcohol Consumption: Monthly or less Average Number of Drinks: 1 or 2 Frequency of Binge Drinking: Less than monthly Patient's Preferred Language: Latvian Cultural Requests During Hospitalization: NONE Acute Conditions/Co-morbidities requiring Acute Rehab: Arrhythmia, Cerebrovascular Accident (CVA), Pneumonia and/or other respiratory issues, Neurological disorder/exacerbation, Uncontrolled HTN, Other (comment) (EKG-SinusBradycardia;SwwrrRYH-WPH-XwogwZradNgzcvedqx Limb,Interanlcapsule,LentiformNucleus-S/PTNK;BlurredVision Hypertension,Depression,Insomnia,Asthma,Vomiting-Coffee GroundEmesis-Consti pation;GastroEsophagealRefluxDisease Hyperlipidemia.) HPI: Patient was at the [facility], in the parking lot and had sudden onset of weakness, difficulty with speech, and left arm and left leg weakness; he was on his way to see his Orthopedic Surgeon. Dr Chayo Epperson; Telestroke Documentation: Consult Start Time: 1305; Consult Stop Time: 1313; Consult Time Calculation (min): 8 min; Name of Requesting Provider: Alfonzo; Video Used? : No; Imaging Reviewed?: Yes; Total Time Spent Coordinating Patient Care: 25 minutes; Subjective HPI: Patient is a 78 y.o. male with PVD and dementia presenting with acute onset left-sided weakness. Patient was driving when he noticed that he had trouble reaching for the turn signal with his left hand and then had difficulty opening the car door with his left hand. Upon standing, herealized his left leg was week, and he slid to the ground. Last known well: Date Last Known Well : 12/07/23 Time Last Known Well: 1000 Discovery of Symptoms -Time: 1000 PMH/Vascular Risk Factors: PVD Medical Decision Making: Recommendations Thrombolytic Recommended: Yes Thrombolytic Recommended Time: 1313 (assuming no contraindications once pt returns from CT and getsvital signs and blood glucose) Thrombectomy Decision: No Thrombectomy Exclusion Criteria: No large vessel occlusion amenable to thrombectomy Assessment/Plan: Mr. Gtz is a 78yo man with PVD, dementia who had acute onset left-sided weakness. NIHSS 8. Head CT shows no acute changes. CTA shows no LVO. CTP 0/0. Suspect acute stroke. Patient is a candidate for IV thrombolysis. Consider the following for stroke evaluation/management: ?? Post-thrombolysis precautions, nursing checks, and BP management ?? After thrombolysis precautions are up, 325 mg of aspirin if passes a swallow screen or aspirin suppository if does not pass a swallow screen ?? High intensity statin ?? Brain MRI to evaluate for infarct ?? Telemetry monitoring for atrial fibrillation/flutter ?? Carotid imaging already performed (no significant carotid disease) ?? Transthoracic echocardiogram if patient has history of heart disease or has an abnormal cardiac exam or an abnormal heart on EKG or chest x-ray. ?? Lipid panel and hemoglobin A1c ?? PT/OT/ST evaluation for post-discharge therapy recommendations If patient experiences neurological worsening or develops new headache, nausea/vomiting, or blood pressure spike after thrombolytic administration, obtain stat head CT, and draw blood for CBC, PT/INR, aPTT, fibrinogen, and type and cross. 12/07/2023: Dr Mahajan Neurology Consult Note: 12/07/2023 OV: Consultation at the request of Dr. Severino Mejía for an opinion regarding stroke. I have personally taken a history, examined the patient and determined the assessment and plan as outlined below. Chief Complaint Patient presents with ?? Stroke ?? Altered Mental Status ?? Weakness - Generalized Lwkn at 1000 HPI. This is a patient who presented to the emergency room December 07, 2023 at 1:02 p.m. for an acute stroke. The patient reported sudden onset of difficulty with speech left arm weakness and left leg weakness. The last known well was 10:00 a.m. today. He would gone to see his orthopedic surgeon when he noted weakness of the left hand and arm and trouble reaching up to put the blink her on and when he tried to open the car door with his left hand he is struggled to do this because his left elio hand were weak. He would difficulty getting up out of the car because of weakness of the left leg. He stated the ground and could not get him self up he would to pull himself up on the car door set himself back in the car and called the orthopedic surgeon service and 911 was called. Was broughtto the emergency room. The patient was seen by Dr. Mejía. Dr Mahajan talked with the emergency room physician tele stroke was consulted and the patient was given tenecteplase and neurology consultation isrequested. He had an NIH stroke scale of 8 his blood pressure on admission 130/84 mm Hg respiratory rate 14 per minute pulse rate 72 per minute temperature 98.6?? F. Dr Mahajan have reviewed the tele stroke consultation as well. Dr Mahajan have also reviewed the CT of the head CTA of the head and neck. No acute ischemia was seen no large vessel occlusion was present no significant stenosis of the carotid vessels were identified as well. CMP is in process CBC white count 6.9 hemoglobin 12.5 hematocrit 37.7 platelet count was 216. Past Medical History: ?? Acute gastric ulcer without hemorrhage or perforation Ulcer, gastric, acute - (Added by TW Conv) ?? Alzheimer's dementia ([facility]) ?? Asthma ?? Back pain ?? Cataract ?? Closed fracture of left tibial plateau with delayed healing ?? Closed fracture of right tibial plateau with delayed healing ?? Closed nondisplaced osteochondral fracture of left patella with delayed healing ?? Closed osteochondral fracture of patella, right, with delayed healing, subsequent encounter ?? Clotting disorder (CMS/HCC) ([facility]) ?? Complex tear of medial meniscus of left knee as current injury ?? Complex tear of medial meniscus of right knee as current injury ?? Cramps of lower extremity ?? Diverticulitis of colon ?? Easy bruisability ?? Fatigue ?? Frequent urination ?? Gastroesophageal reflux disease ?? Hypothyroidism ?? Incontinence of urine ?? Muscle weakness ?? Osteoarthritis Peptic ulcer ?? Seizures ([facility]) 1997 last seizure in 1997 ?? SOB (shortness of breath) on exertion ?? Subchondral insufficiency fracture of condyle of left femur ?? Vertigo ?? Vision changes ?? Visual disturbance hx of double vision, corrective lenses Surgical History ?? CATARACT EXTRACTION, BILATERAL Bilateral 2018 ?? HERNIA REPAIR 1979 Hiatal Hernia repair ?? KNEE ARTHROSCOPY Bilateral ?? THYROIDECTOMY There is a left hemiparesis with a power of 4/5 there is a drift of the left leg no drift of the left upper extremity but he has difficulty with xtkzdu-[id number]-jezsgi testing because of weakness. Paretic ataxia of the left upper extremity in [id number] testing Impression and Recommendations. 1. Acute right cerebral infarction status post thrombolytic therapy. The patient is showing signs of improvement. His stroke risk factors include age as well as dyslipidemia. He will be on the strokeand tPA pathway. Further workup will include an MRI of the brain and a transthoracic echocardiogram with bubble study. After the [address] head if this shows no hemorrhage anti-platelet will be started unless there is a contraindication. Lipid panel and hemoglobin A1c will be reviewed once available. 12/08/2023: Speech Language Pathology, Occupational Therapy and Physical Therapy have completed theevaluations with recommendations for Acute Inpatient Rehabilitation. 12/09/2023: Transferred to telemetry Unit 12/11/2023: Lianet Mckinney NP Neurology Progress Note: Subjective: Chief complaint of stroke. Interval History: 12/08/2023 - The patient is seen and examined laying in bed. He is drowsy but will wake up and follow commands. He has a left sided facial droop and weakness of his left arm and leg. Family at bedside. MRI brain and ECHO completed today. 12/09/2023 - The patient is seen and examined after working with therapy. 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 Heis able to move the left leg though weakness is present. He continues to have a left facial droop as well. The nurse noted that he had some trouble reading and looking out the window today and statesthat he does have double and blurry vision with distance at times. 12/10/2023 - The patient is seen and examined laying in bed. He is alert, orientated, and able to follow commands. He is unable to move the left arm except for at the shoulder but can move the left legthough weaker than the right. He states that his vision is a little worse today than it was yesterday. There is a left hemiparesis with a power of 4/5 and there is a drift of the left leg. Today the patient is able to move the left shoulder but cannot lift the arm against gravity. SSESSMENTPLAN: Acute right cerebral infarction status post thrombolytic therapy. His stroke risk factors include age as well as dyslipidemia. He will be on the stroke and tPA pathway. There was concern this eveningfor this patient's stroke symptoms becoming worse. Recommendations: 1. CT head was negative for hemorrhage, okay to continue Aspirin 81 mg daily. 2. Continue Rosuvastatin 40 mg daily for goal LDL less than 70. 3. The internal capsule stroke can progress and is recommended to continue supportive care of his stroke symptoms. Continue adequate hydration and control of blood pressure. 4. Continue to control blood pressure for a goal no lower than 130/80 and no higher than 185/110. 5. Continue aggressive PT/OT/ST. 12/14/2023; Zheng Veras EDUCATIONAL DIAGNOSTICIAN Hospitalist Progress Note: Clinical course: Patient awake and alert, sitting in chair. Left hemiparesis persists. Still no bowel movement. Daughter at bedside. Review of Systems: Constitutional: Negative for chills, fever and malaise/fatigue. Respiratory: Negative for shortness of breath. Cardiovascular: Negative for chest pain. Gastrointestinal: Positive for constipation. Negative for abdominal pain, nausea and vomiting. Genitourinary: Negative for dysuria. Neurological: Positive for sensory change, speech change and focal weakness. Negative for headaches. Assessment and Plan Principal Problem: Acute CVA (cerebrovascular accident) (HCC) Acute ischemic right cerebral stroke, POA - s/p TNK, post thrombolytic care on 12/07/23 with neuro checks -Aspirin on hold. Rosuvastatin. - TTE with bubble study showed no evidence of right to left shunt. - MRI brain 12/08/23 showing acute infarct posterior limb internal capsule right side. Underlying atrophy and small-vessel disease. No hemorrhagic changes identified. -PT/OT/REGISTERED MEDICAL ASSISTANT -Change diet to mechanical soft on 12/10, change back to regular consistency on 12/12 -Repeat CT negative for hemorrhage on 12/11. Resumed aspirin Possible GI bleed on 12/09-12/10, no further episodes of bleeding -Resumed aspirin -Holding lovenox -FOB pending -Protonix IV -Hgb stable HTN, POA - Under control -prn Hydralazine for SBP< 185 or DBP > 110 -monitor blood pressure closely and treat accordingly HLD, POA - continue with statin Asthma -patient not in exacerbation - resume prn albuterol AAA, POA - HTN control when post acute stroke - statin GERD/ PUD, POA - continue Protonix Hypothyroidism: -levothyroxine Alzheimer, POA: - continue home Donepezil Depression, POA - continue home Mirtazapine BPH: -continue Flomax Insomnia, POA: - replace home melatonin with ramelteon prn -home ambien prn OA -Resume home percocet Constipation: -Start miralax, colace. Add lactulose. VTE Prophylaxis with enoxaparin on hold Pt will need continued inpatient management for the above medical issues. Disposition: Plan to discharge to CMR status post bowel movement and if FOB negative. Due to medical complexity including CVA-S/P TNK and possible GI Bleed with N/V- coffee ground emesis; and significant functional decline from [place] with BADLS and IADLS; patient is an [employer]. Date of Onset: Date of Onset: 12/07/23 Date Admitted to Acute: Date admitted to acute: 12/07/23 Precautions/Restrictions: Falls, Seizure, Hypertension Weight Bearing Precautions: NONE [place] Suicide Severity Rating Scale: 1. In the past month, have you wished you were or thatyou could go to sleep and not wake up?: No 2. In the past month, have you actually had any thoughts of killing yourself?: No 6. Have you ever done anything, started to do anything, or prepared to do anything to end your life?: No Suicide Risk Level: No risk level Allergies: No Known Allergies Code Status: Full Code Vitals: Vitals: 12/14/23 1200 BP: 138/82 Pulse: 69 Resp: 21 Temp: 37.1 ??C (98.8 ??F) SpO2: 92% Current Systems Summary: Height: 180.3 cm (5' 11 ) Weight: 103.4 kg (228 lb) Diet: 2GM Sodium Low Fat, Low Cholesterol, Low Fat Snure Supplement with High Protein Bladder: Incontinent Bowel: Continent Date of last BM: 12/14/23 Integumentary: Hood Scale 16; No documented breaks in skin integrity Cardiopulmonary: Room air Dialysis: N/A Pain: Patient has pain that is controlled on current regimen IVs: Peripheral IV Current meds: No current facility-administered medications on file prior to encounter. Current Outpatient Medications on File Prior to Encounter Medication Sig Dispense Refill Advair HFA 230-21 mcg/actuation inhaler Inhale 2 puffs 2 (two) times a day albuterol HFA (PROVENTIL HFA,VENTOLIN HFA,PROAIR HFA) 90 mcg/actuation inhaler 2 puffs every 4 (four) hours as needed azithromycin (ZITHROMAX) 250 mg tablet TAKE 2 TABLETS BY MOUTH ON DAY 1, AND THEN TAKE 1 TABLET BY MOUTH ONCE A DAY ON DAY 2 THROUGH DAY 5 capsaicin 0.1 % cream Apply to your feet three to four times a day. 60 g 5 cholecalciferol (VITAMIN D-3) 2000 unit capsule Take [...] as a separate prescription. 60 g 3 gabapentin (NEURONTIN) 300 mg capsule Take 2 capsules (600 mg total) by mouth 3 (three) times a day pravastatin (PRAVACHOL) 10 mg tablet Take 1 tablet (10 mg total) by mouth daily spironolactone (ALDACTONE) 25 mg tablet Take 1 tablet (25 mg total) by mouth daily zolpidem (AMBIEN) 5 mg tablet Take 1 tablet (5 mg total) by mouth nightly at bedtime. cetirizine (ZyrTEC) 10 mg tablet Take 1 tablet (10 mg total) by mouth daily donepeziL (ARICEPT) 10 mg tablet Take 1 tablet by mouth nightly 30 tablet 0 eszopiclone (LUNESTA) 2 mg tablet BRING TABLET WITH YOU TO SLEEP LAB Flovent HFA 44 mcg/actuation inhaler INHALE 2 PUFFS BY MOUTH TWICE DAILY EVERY 12 HOURS furosemide (LASIX) 20 mg tablet Take 1 tablet (20 mg total) by mouth 2 (two) times a day levothyroxine (SYNTHROID) 150 mcg tablet Take 1 tablet (150 mcg total) by mouth daily lidocaine (ASPERCREME) 4 % adhesive patch,medicated Place 1 patch on the skin daily for 12 days 12 patch 0 melatonin 10 mg tablet Take 1 tablet (10 mg total) by mouth nightly mirtazapine (REMERON) 7.5 mg tablet TAKE 1 TABLET BY MOUTH ONCE DAILY AT NIGHT mupirocin (BACTROBAN) 2 % ointment Apply topically 2 (two) times a day If your most severe itchy rash has yellow crusts/flakes, then mix mupirocin 1:1 with clobetsol ointment before applying them to your rash. For less severe rash/itch, use triamcinolone cream sent as a separate prescription. 30 g 3 omeprazole (PriLOSEC) 20 mg capsule Take 2 capsules (40 mg total) by mouth daily 60 capsule 11 oxybutynin XL (DITROPAN-XL) 10 mg 24 hr tablet Take 15 mg by mouth nightly permethrin (ELIMITE) 5 % cream APPLY FROM THE NECK DOWN AT NIGHT, WASH OFF IN THE MORNING, REPEAT IN 1 WEEK sildenafiL, pulm.hypertension, (REVATIO) 20 mg tablet Take 1 tablet (20 mg total) by mouth daily tamsulosin (FLOMAX) 0.4 mg extended release capsule Take 1 capsule (0.4 mg total) by mouth nightly (Patient not taking: Reported on 05/04/2023) tiZANidine (ZANAFLEX) 2 mg tablet TAKE 1 TABLET BY MOUTH EVERY 8 HOURS NEEDED FOR MUSCLE SPASM (Patient taking differently: Take 1 tablet (2 mg total) by mouth nightly) 60 tablet 0 triamcinolone (KENALOG) 0.1 % cream Apply topically 2 (two) times a day as needed for rash Or itch on the skin. Do not use on face, armpits, or groin. For more severe rash/itch, use clobetasol/mupirocin sent as a separate prescription. 453.6 g 2 turmeric root extract 500 mg capsule Take 1,000 mg by mouth nightly Substance abuse history: Gunjan Gtz Jr. reports that he quit smoking about 57 years ago. His smoking use included cigarettes. He started smoking about 58 years ago. He has never used smokeless tobacco. He reports current drug use. Drug: Alcohol. Patient reports consuming alcoholic drinks monthly or less, with a daily consumption of 1 or 2 drinks. Patient also reports less than monthly occurrences of consuming 6 or morealcoholic drinks at one occasion. Diagnostic Tests: Recent Results (from the past 72 hour(s)) CBC with auto differential Collection Time: 12/12/23 4:20 AM Result Value Ref Range WBC 8.5 3.8 - 9.9 K/cumm Hgb 13.5 13.0 - 17.5 g/dL Hct 41.8 38.9 - 50.3 % Plt 222 150 - 400 K/cumm MPV 10.1 9.1 - 12.3 fL RBC 4.24 (L) 4.30 - 5.80 M/cumm MCV 98.6 (H) 81.3 - 96.4 fL MCH 31.8 27.1 - 33.3 pg MCHC 32.3 32.3 - 35.7 g/dL RDW CV 12.9 11.1 - 14.9 % RDW SD 46.5 35.7 - 48.1 fL NRBC abs 0.00 0.00 - 0.01 K/cumm Basic metabolic panel Collection Time: 12/12/23 4:20 AM Result Value Ref Range Sodium 138 135 - 145 mmol/L Potassium, pl 4.8 3.3 - 4.9 mmol/L Chloride 105 97 - 110 mmol/L CO2 24 22 - 32 mmol/L Anion gap 9 2 - 15 mmol/L BUN 18 6 - 25 mg/dL Creatinine 1.14 0.80 - 1.30 mg/dL Glucose 105 70 - 199 mg/dL Calcium 9.0 8.5 - 10.3 mg/dL Magnesium Collection Time: 12/12/23 4:20 AM Result Value Ref Range Magnesium 1.8 1.4 - 2.5 mg/dL Phosphorus Collection Time: 12/12/23 4:20 AM Result Value Ref Range Phosphorus, pl 3.2 2.3 - 4.5 mg/dL Differential, auto Collection Time: 12/12/23 4:20 AM Result Value Ref Range Neutrophil abs 4.7 1.5 - 6.5 K/cumm Imm gran abs 0.0 0.0 - 0.1 K/cumm Lymphocyte abs 2.5 0.8 - 3.3 K/cumm Monocyte abs 0.9 (H) 0.2 - 0.8 K/cumm Eosinophil abs 0.3 0.0 - 0.5 K/cumm Basophil abs 0.1 0.0 - 0.1 K/cumm Neutrophil pct 55.0 % Imm gran pct 0.5 % Lymphocyte pct 29.3 % Monocyte pct 10.6 % Eosinophil pct 3.9 % Basophil pct 0.7 % eGFR Collection Time: 12/12/23 4:20 AM Result Value Ref Range eGFR 65 mL/min/1.73 m2 CBC with auto differential Collection Time: 12/13/23 2:52 AM Result Value Ref Range WBC 9.4 3.8 - 9.9 K/cumm Hgb 13.8 13.0 - 17.5 g/dL Hct 41.7 38.9 - 50.3 % Plt 255 150 - 400 K/cumm MPV 10.8 9.1 - 12.3 fL RBC 4.29 (L) 4.30 - 5.80 M/cumm MCV 97.2 (H) 81.3 - 96.4 fL MCH 32.2 27.1 - 33.3 pg MCHC 33.1 32.3 - 35.7 g/dL RDW CV 13.0 11.1 - 14.9 % RDW SD 46.3 35.7 - 48.1 fL NRBC abs 0.00 0.00 - 0.01 K/cumm Basic metabolic panel Collection Time: 12/13/23 2:52 AM Result Value Ref Range Sodium 138 135 - 145 mmol/L Potassium, pl 4.4 3.3 - 4.9 mmol/L Chloride 103 97 - 110 mmol/L CO2 24 22 - 32 mmol/L Anion gap 11 2 - 15 mmol/L BUN 24 6 - 25 mg/dL Creatinine 1.22 0.80 - 1.30 mg/dL Glucose 106 70 - 199 mg/dL Calcium 9.2 8.5 - 10.3 mg/dL Differential, auto Collection Time: 12/13/23 2:52 AM Result Value Ref Range Neutrophil abs 5.2 1.5 - 6.5 K/cumm Imm gran abs 0.1 0.0 - 0.1 K/cumm Lymphocyte abs 2.7 0.8 - 3.3 K/cumm Monocyte abs 1.0 (H) 0.2 - 0.8 K/cumm Eosinophil abs 0.3 0.0 - 0.5 K/cumm Basophil abs 0.1 0.0 - 0.1 K/cumm Neutrophil pct 55.7 % Imm gran pct 0.5 % Lymphocyte pct 28.8 % Monocyte pct 10.6 % Eosinophil pct 3.6 % Basophil pct 0.8 % eGFR Collection Time: 12/13/23 2:52 AM Result Value Ref Range eGFR 60 mL/min/1.73 m2 CBC with auto differential Collection Time: 12/14/23 4:27 AM Result Value Ref Range WBC 8.3 3.8 - 9.9 K/cumm Hgb 13.6 13.0 - 17.5 g/dL Hct 41.8 38.9 - 50.3 % Plt 252 150 - 400 K/cumm MPV 10.2 9.1 - 12.3 fL RBC 4.27 (L) 4.30 - 5.80 M/cumm MCV 97.9 (H) 81.3 - 96.4 fL MCH 31.9 27.1 - 33.3 pg MCHC 32.5 32.3 - 35.7 g/dL RDW CV 13.2 11.1 - 14.9 % RDW SD 46.9 35.7 - 48.1 fL NRBC abs 0.00 0.00 - 0.01 K/cumm Basic metabolic panel Collection Time: 12/14/23 4:27 AM Result Value Ref Range Sodium 138 135 - 145 mmol/L Potassium, pl 4.2 3.3 - 4.9 mmol/L Chloride 104 97 - 110 mmol/L CO2 24 22 - 32 mmol/L Anion gap 10 2 - 15 mmol/L BUN 23 6 - 25 mg/dL Creatinine 1.12 0.80 - 1.30 mg/dL Glucose 118 70 - 199 mg/dL Calcium 9.0 8.5 - 10.3 mg/dL Differential, auto Collection Time: 12/14/23 4:27 AM Result Value Ref Range Neutrophil abs 4.5 1.5 - 6.5 K/cumm Imm gran abs 0.0 0.0 - 0.1 K/cumm Lymphocyte abs 2.4 0.8 - 3.3 K/cumm Monocyte abs 1.0 (H) 0.2 - 0.8 K/cumm Eosinophil abs 0.4 0.0 - 0.5 K/cumm Basophil abs 0.1 0.0 - 0.1 K/cumm Neutrophil pct 53.9 % Imm gran pct 0.5 % Lymphocyte pct 28.5 % Monocyte pct 11.9 % Eosinophil pct 4.2 % Basophil pct 1.0 % eGFR Collection Time: 12/14/23 4:27 AM Result Value Ref Range eGFR 67 mL/min/1.73 m2 Prior Functional Status: Mobility status/Ambulation aid/assistive devices: Transfers: Independent Walking: [...] assistance (Shares with ) Driving: Yes ([employer]) Functional limitations: Hearing: Impaired; Unaided Sensory Vision: Functional with lenses Cognition: Intact Communication: Normal Nutrition: Normal 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 Sits unsupported with FAIR balance for approx 5 min. Transfer(s): Sit to stand with MOD A as well as pivot from to recliner; assist to advance L leg. Increased time (12/14/2023 1:53 PM) OT Self Care: Treatment Note 12/14/2023: [...] up. (Re PROM LUE) (12/14/2023 1:53 PM) Mobility/Transfers: PT Functional Mobility: Treatment Note 12/14/2023: Yes ORIENTATION: Alert and oriented x4; MOBILITY DOCUMENTATION: Bed Mobility/Transfers: pt transfers mod A supine to sit, mod A sit to/from stand,mod A pivot transfer bed to chair (pt [...] knee buckling/unsteady requiring blocking from therapist to take step w/R LE, and vc for sequencing. TREATMENT: Pt performed B LE seated HEP x10-15 reps SPV on R LE,SPV to mod A for L LE. (12/14/2023 1:53 PM) Cognition/Communication/Swallowing: REGISTERED MEDICAL ASSISTANT Cognition: Treatment Note 12/13/2023: MENTAL STATUS: Patient awake, sitting up in chair. Reports improvement with double vision. COGNITION: Cognitive deficits in short term memory and insight. TREATMENT ACTIVITIES: Recall daily activities/recent events with 100% accuracy Oral motor exercises 10xs each Oriented x4 (12/14/2023 1:53 PM) REGISTERED MEDICAL ASSISTANT Communication: Treatment Note 12/13/2023: COMMUNICATION: Mild dysarthric speech. (12/14/2023 1:53PM) REGISTERED MEDICAL ASSISTANT Swallowing: Treatment Note 12/13/2023: SWALLOWING: Swallow assessed by REGISTERED MEDICAL ASSISTANT. Regular consistencydiet/thin liquids recommended. Patient's reports patient having difficulty with food getting stuck on left side of mouth. EDUCATIONAL DIAGNOSTICIAN changed diet to mechanical soft/thin liquids. (12/14/2023 1:53 PM) Conditions requiring acute rehab and risk for complications: Gait dysfunction - risk for falls and further injury, fracture Diabetes - risk for hypoglycemic episodes Uncontrolled Hypertension - risk for stroke, stroke extension, HI Decreased mobility - Risk for Fall, skin breakdown, further injury, decompensation, muscle flaccidity Balance Issues- Risk for Fall, further injury Poor Reasoning and judgement- risk for impulsiveness, decreased safety, further injury Visual Impairments- Risk for Falls, decreased safety, limb neglect, perception impairment Hemiparesis/Hemiplegia- Risk for falls, decreased safety, limb contractures, DVT, Skin breakdown, limb neglect, B/P fluctuations Treatments needed to address conditions requiring acute rehab: Intense PT/OT/SP, Access to [facility] Integrity physicians, Frequent labs, Frequent Neuro assessment, Radiology exam Alternative Level of Care considered and not appropriate due to: Consult physician oversight, Medication adjustment/oversight, Neurochecks Patient/Caregiver Goals: Patient and Family Goals: To get him strong enough to go home and completemost of his own care Cosigned by Becky Montana MD at 12/15/2023 10:55 AM RAG 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 Associated attestation - Becky Montana MD - 12/15/2023 10:55 AM RAG 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 Rehab Referral Decision: Approved I have reviewed this patient Pre-admission Screening Information.The patient is medically stable toparticipate in an inpatient rehabilitation program. In my rehabilitation experience and professional judgement, this patient meets medical necessity criteria and requires an inpatient rehabilitation stay to manage current nursing and medical issues. The patient requires supervision by a rehabilitation physician at least three times a week. The patient requires the Interdisciplinary team approach of an inpatient rehabilitation program. This patient can reasonably expect to participate and benefit from the intensive Inpatient rehabilitation program offered at [facility] . * Plan of Care - Indira Vera RN - 12/14/2023 1:25 PM CST [employer] has approved pt to go to [facility] for inpatient acute rehab. Per JAE Calzada, pt is constipated and will need to first have a bowel movement and can go if FOB is negative; CMR request pt arrives no later than 4 pm; therefore, d/c to [facility] is likely tomorrow, 12/14. PEG JohnsonRN, Nurse Blocker Hand [phone] 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 * Plan of Care - Tamar Valle RN - 12/14/2023 6:14 AM CST Problem: Fall Risk Goal: Ability to state ways to decrease the risk of falls will improve Outcome: Progressing Goal: Will remain free from falls Outcome: Progressing Goal: Will remain free from injury from falls Outcome: Progressing Problem: Skin Integrity Impairment Risk Goal: Mobility will improve Outcome: Progressing Goal: Understanding of ways to prevent future skin breakdown will improve Outcome: Progressing Goal: Nutritional status will improve Outcome: Progressing Goal: Risk for impaired skin integrity will decrease Outcome: Progressing Problem: Sensory Goal: Ability to identify factors that increase pain levels will improve while working to decrease the patient's pain levels Outcome: Progressing Problem: Coping Goal: Ability to cope will improve Outcome: Progressing Problem: Health Behavior Goal: Identification of resources available to assist in meeting health care needs will improve Outcome: Progressing Problem: Activity: Goal: Capacity to carry out activities will improve Outcome: Progressing Problem: Neurosensory Goal: Achieves stable or improved neurological status Outcome: Progressing Goals: Clinical Goals for the Shift: neuro checks,vital signs stable,maintain cares comfort and safety Summary: Patients vital signs stable,promted cares comfort and safety 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 * Plan of Care - Indira Vera RN - 12/13/2023 2:16 PM CST Esther with [facility] stated that insurance auth was submitted to [facility] and the status is: pending andawaiting clinical review . CM notified pt and family at bedside. Spouse has questions regarding POAdocumentation. consult order submitted and AIRLINE OPERATIONS AGENT notified. HANNAH Johnson, Nurse Blocker Hand [phone] 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 * Plan of Care - Amie Rdz RN - 12/13/2023 2:06 PM CST Problem: Discharge Planning Goal: Understanding discharge needs will improve Outcome: Progressing Problem: Fall Risk Goal: Ability to state ways to decrease the risk of falls will improve Outcome: Progressing Goal: Will remain free from falls Outcome: Progressing Goal: Will remain free from injury from falls Outcome: Progressing Problem: Lack of Knowledge Goal: [...] health care needs will improve Outcome: Progressing Problem: Activity: Goal: Capacity to carry out activities will improve Outcome: Progressing Goal: Mobility will improve Outcome: Progressing Goal: Range of joint motion will improve Outcome: Progressing Problem: Lack of Knowledge: Goal: Verbalization of understanding the information provided will improve Outcome: Progressing Problem: Coping: Goal: Ability to verbalize positive feelings about self will improve Outcome: Progressing Goal: Ability to identify appropriate support needs will improve Outcome: Progressing Goal: Ability to identify strategies to decrease anxiety will improve Outcome: Progressing Problem: Health Behavior: Goal: Ability to manage health-related needs will improve Outcome: Progressing Problem: Nutritional: Goal: Dietary intake will improve Outcome: Progressing Problem: Physical Regulation: Goal: Ability to maintain clinical measurements within normal limits will improve Outcome: Progressing Goal: Complications related to the disease process, condition or treatment will be avoided or minimized Outcome: Progressing Problem: Role Relationship: Goal: Ability to communicate needs accurately will improve Outcome: Progressing Goal: Ability to reevaluate and adapt role responsibilities will improve Outcome: Progressing Problem: Safety: Goal: Ability to remain free from injury will improve Outcome: Progressing Problem: Self-Care: Goal: Ability to participate in self-care as condition permits will improve Outcome: Progressing Goal: Verbalization of feelings and concerns over difficulty with self-care will improve Outcome: Progressing Problem: Skin Integrity: Goal: Risk for impaired skin integrity will decrease Outcome: Progressing Problem: Tissue Perfusion: Goal: Neurologic status will improve Outcome: Progressing Goal: Risk of venous thrombosis will decrease Outcome: Progressing Problem: Skin Integrity Impairment Risk Goal: Mobility will improve Outcome: Progressing Goal: Understanding of ways to prevent future skin breakdown will improve Outcome: Progressing Goal: Nutritional status will improve Outcome: Progressing Goal: Risk for impaired skin integrity will decrease Outcome: Progressing Problem: Neurosensory Goal: Achieves stable or improved neurological status Outcome: Progressing Goal: Absence of seizures Outcome: Progressing Goal: Achieves maximal functionality and self care Outcome: Progressing Problem: Cardiovascular Goal: Maintains optimal cardiac output and hemodynamic stability Outcome: Progressing Goal: Absence of cardiac dysrhythmias or at baseline Outcome: Progressing Goals: Clinical Goals for the Shift: Q4 neuro checks, Stable VS, Comfort, Safety Summary: pt verbalized understanding 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 * Plan of Care - Paresh Prieto SLP - 12/13/2023 1:25 PM CST Problem: Cognitive/Linguistics Goal: STG - Patient will recall new information Description: With 80% accuracy Outcome: Progressing Goal: STG - Patient will participate in further assessment of cognitive- linguistic skills Outcome: Progressing Problem: Communication/Motor Speech Goal: STG - Patient will participate in oral-motor exercises to improve strength Outcome: Progressing 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 * Plan of Care - Eileen Clark RN - 12/12/2023 9:57 PM CST Problem: Discharge Planning Goal: Understanding discharge needs will improve Outcome: Progressing Problem: Fall Risk Goal: Ability to state ways to decrease the risk of falls will improve Outcome: Progressing Goal: Will remain free from falls Outcome: Progressing Goal: Will remain free from injury from falls Outcome: Progressing Problem: Lack of Knowledge Goal: [...] health care needs will improve Outcome: Progressing Problem: Activity: Goal: Capacity to carry out activities will improve Outcome: Progressing Goal: Mobility will improve Outcome: Progressing Goal: Range of joint motion will improve Outcome: Progressing Problem: Lack of Knowledge: Goal: Verbalization of understanding the information provided will improve Outcome: Progressing Problem: Coping: Goal: Ability to verbalize positive feelings about self will improve Outcome: Progressing Goal: Ability to identify appropriate support needs will improve Outcome: Progressing Goal: Ability to identify strategies to decrease anxiety will improve Outcome: Progressing Problem: Health Behavior: Goal: Ability to manage health-related needs will improve Outcome: Progressing Problem: Nutritional: Goal: Dietary intake will improve Outcome: Progressing Problem: Physical Regulation: Goal: Ability to maintain clinical measurements within normal limits will improve Outcome: Progressing Goal: Complications related to the disease process, condition or treatment will be avoided or minimized Outcome: Progressing Problem: Role Relationship: Goal: Ability to communicate needs accurately will improve Outcome: Progressing Goal: Ability to reevaluate and adapt role responsibilities will improve Outcome: Progressing Problem: Safety: Goal: Ability to remain free from injury will improve Outcome: Progressing Problem: Self-Care: Goal: Ability to participate in self-care as condition permits will improve Outcome: Progressing Goal: Verbalization of feelings and concerns over difficulty with self-care will improve Outcome: Progressing Problem: Skin Integrity: Goal: Risk for impaired skin integrity will decrease Outcome: Progressing Problem: Tissue Perfusion: Goal: Neurologic status will improve Outcome: Progressing Goal: Risk of venous thrombosis will decrease Outcome: Progressing Problem: Skin Integrity Impairment Risk Goal: Mobility will improve Outcome: Progressing Goal: Understanding of ways to prevent future skin breakdown will improve Outcome: Progressing Goal: Nutritional status will improve Outcome: Progressing Goal: Risk for impaired skin integrity will decrease Outcome: Progressing Problem: Neurosensory Goal: Achieves stable or improved neurological status Outcome: Progressing Goal: Absence of seizures Outcome: Progressing Goal: Achieves maximal functionality and self care Outcome: Progressing Goals: Clinical Goals for the Shift: Q4 neuro checks, Stable VS, Comfort, Safety Summary: AO x4. Q4 neuro checks done - no acute changes noted. Monitored vitals and labs. Q2 turns facilitated. Brought to radio for a repeat CT head. Needs attended. Patient kept monitored. 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 * Plan of Care - Amie Rdz RN - 12/12/2023 6:44 PM CST Problem: Discharge Planning Goal: Understanding discharge needs will improve Outcome: Progressing Problem: Fall Risk Goal: Ability to state ways to decrease the risk of falls will improve Outcome: Progressing Goal: Will remain free from falls Outcome: Progressing Goal: Will remain free from injury from falls Outcome: Progressing Problem: Lack of Knowledge Goal: [...] health care needs will improve Outcome: Progressing Problem: Activity: Goal: Capacity to carry out activities will improve Outcome: Progressing Goal: Mobility will improve Outcome: Progressing Goal: Range of joint motion will improve Outcome: Progressing Problem: Lack of Knowledge: Goal: Verbalization of understanding the information provided will improve Outcome: Progressing Problem: Coping: Goal: Ability to verbalize positive feelings about self will improve Outcome: Progressing Goal: Ability to identify appropriate support needs will improve Outcome: Progressing Goal: Ability to identify strategies to decrease anxiety will improve Outcome: Progressing Problem: Health Behavior: Goal: Ability to manage health-related needs will improve Outcome: Progressing Problem: Nutritional: Goal: Dietary intake will improve Outcome: Progressing Problem: Physical Regulation: Goal: Ability to maintain clinical measurements within normal limits will improve Outcome: Progressing Goal: Complications related to the disease process, condition or treatment will be avoided or minimized Outcome: Progressing Problem: Role Relationship: Goal: Ability to communicate needs accurately will improve Outcome: Progressing Goal: Ability to reevaluate and adapt role responsibilities will improve Outcome: Progressing Problem: Safety: Goal: Ability to remain free from injury will improve Outcome: Progressing Problem: Self-Care: Goal: Ability to participate in self-care as condition permits will improve Outcome: Progressing Goal: Verbalization of feelings and concerns over difficulty with self-care will improve Outcome: Progressing Problem: Skin Integrity: Goal: Risk for impaired skin integrity will decrease Outcome: Progressing Problem: Tissue Perfusion: Goal: Neurologic status will improve Outcome: Progressing Goal: Risk of venous thrombosis will decrease Outcome: Progressing Problem: Skin Integrity Impairment Risk Goal: Mobility will improve Outcome: Progressing Goal: Understanding of ways to prevent future skin breakdown will improve Outcome: Progressing Goal: Nutritional status will improve Outcome: Progressing Goal: Risk for impaired skin integrity will decrease Outcome: Progressing Problem: Neurosensory Goal: Achieves stable or improved neurological status Outcome: Progressing Goal: Absence of seizures Outcome: Progressing Goal: Achieves maximal functionality and self care Outcome: Progressing Problem: Cardiovascular Goal: Maintains optimal cardiac output and hemodynamic stability Outcome: Progressing Goal: Absence of cardiac dysrhythmias or at baseline Outcome: Progressing Goals: Clinical Goals for the Shift: VSS, comfort, safety Summary: pt verbalized understanding 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 * Plan of Care - Eileen Clark RN - 12/11/2023 10:31 PM CST Problem: Discharge Planning Goal: Understanding discharge needs will improve Outcome: Progressing Problem: Fall Risk Goal: Ability to state ways to decrease the risk of falls will improve Outcome: Progressing Goal: Will remain free from falls Outcome: Progressing Goal: Will remain free from injury from falls Outcome: Progressing Problem: Lack of Knowledge Goal: [...] health care needs will improve Outcome: Progressing Problem: Activity: Goal: Capacity to carry out activities will improve Outcome: Progressing Goal: Mobility will improve Outcome: Progressing Goal: Range of joint motion will improve Outcome: Progressing Problem: Lack of Knowledge: Goal: Verbalization of understanding the information provided will improve Outcome: Progressing Problem: Coping: Goal: Ability to verbalize positive feelings about self will improve Outcome: Progressing Goal: Ability to identify appropriate support needs will improve Outcome: Progressing Goal: Ability to identify strategies to decrease anxiety will improve Outcome: Progressing Problem: Health Behavior: Goal: Ability to manage health-related needs will improve Outcome: Progressing Problem: Nutritional: Goal: Dietary intake will improve Outcome: Progressing Problem: Physical Regulation: Goal: Ability to maintain clinical measurements within normal limits will improve Outcome: Progressing Goal: Complications related to the disease process, condition or treatment will be avoided or minimized Outcome: Progressing Problem: Role Relationship: Goal: Ability to communicate needs accurately will improve Outcome: Progressing Goal: Ability to reevaluate and adapt role responsibilities will improve Outcome: Progressing Problem: Safety: Goal: Ability to remain free from injury will improve Outcome: Progressing Problem: Self-Care: Goal: Ability to participate in self-care as condition permits will improve Outcome: Progressing Goal: Verbalization of feelings and concerns over difficulty with self-care will improve Outcome: Progressing Problem: Skin Integrity: Goal: Risk for impaired skin integrity will decrease Outcome: Progressing Problem: Tissue Perfusion: Goal: Neurologic status will improve Outcome: Progressing Goal: Risk of venous thrombosis will decrease Outcome: Progressing Problem: Skin Integrity Impairment Risk Goal: Mobility will improve Outcome: Progressing Goal: Understanding of ways to prevent future skin breakdown will improve Outcome: Progressing Goal: Nutritional status will improve Outcome: Progressing Goal: Risk for impaired skin integrity will decrease Outcome: Progressing Problem: Neurosensory Goal: Achieves stable or improved neurological status Outcome: Progressing Goal: Absence of seizures Outcome: Progressing Goal: Achieves maximal functionality and self care Outcome: Progressing Goals: Clinical Goals for the Shift: Q4 neuro checks, Stable VS, Comfort, Safety Summary: AO x4. Q4 neuro checks done - no acute changes noted. Monitored vitals and labs. Q2 turns facilitated. Needs attended. Patient kept monitored. 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 * Plan of Care - Amie Rdz RN - 12/11/2023 1:38 PM CST Problem: Discharge Planning Goal: Understanding discharge needs will improve Outcome: Progressing Problem: Fall Risk Goal: Ability to state ways to decrease the risk of falls will improve Outcome: Progressing Goal: Will remain free from falls Outcome: Progressing Goal: Will remain free from injury from falls Outcome: Progressing Problem: Lack of Knowledge Goal: [...] health care needs will improve Outcome: Progressing Problem: Activity: Goal: Capacity to carry out activities will improve Outcome: Progressing Goal: Mobility will improve Outcome: Progressing Goal: Range of joint motion will improve Outcome: Progressing Problem: Lack of Knowledge: Goal: Verbalization of understanding the information provided will improve Outcome: Progressing Problem: Coping: Goal: Ability to verbalize positive feelings about self will improve Outcome: Progressing Goal: Ability to identify appropriate support needs will improve Outcome: Progressing Goal: Ability to identify strategies to decrease anxiety will improve Outcome: Progressing Problem: Health Behavior: Goal: Ability to manage health-related needs will improve Outcome: Progressing Problem: Nutritional: Goal: Dietary intake will improve Outcome: Progressing Problem: Physical Regulation: Goal: Ability to maintain clinical measurements within normal limits will improve Outcome: Progressing Goal: Complications related to the disease process, condition or treatment will be avoided or minimized Outcome: Progressing Problem: Role Relationship: Goal: Ability to communicate needs accurately will improve Outcome: Progressing Goal: Ability to reevaluate and adapt role responsibilities will improve Outcome: Progressing Problem: Safety: Goal: Ability to remain free from injury will improve Outcome: Progressing Problem: Self-Care: Goal: Ability to participate in self-care as condition permits will improve Outcome: Progressing Goal: Verbalization of feelings and concerns over difficulty with self-care will improve Outcome: Progressing Problem: Skin Integrity: Goal: Risk for impaired skin integrity will decrease Outcome: Progressing Problem: Tissue Perfusion: Goal: Neurologic status will improve Outcome: Progressing Goal: Risk of venous thrombosis will decrease Outcome: Progressing Problem: Skin Integrity Impairment Risk Goal: Mobility will improve Outcome: Progressing Goal: Understanding of ways to prevent future skin breakdown will improve Outcome: Progressing Goal: Nutritional status will improve Outcome: Progressing Goal: Risk for impaired skin integrity will decrease Outcome: Progressing Problem: Neurosensory Goal: Achieves stable or improved neurological status Outcome: Progressing Goal: Absence of seizures Outcome: Progressing Goal: Achieves maximal functionality and self care Outcome: Progressing Problem: Cardiovascular Goal: Maintains optimal cardiac output and hemodynamic stability Outcome: Progressing Goal: Absence of cardiac dysrhythmias or at baseline Outcome: Progressing Goals: Clinical Goals for the Shift: VSS, comfort, safety Summary: pt verbalized understanding 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 * Plan of Care - Taylor Mahajan RRT - 12/11/2023 7:30 AM CST Pt received Breo Ellipta inhaler. Tolerated well. Continue as ordered. 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 * Plan of Care - Eileen Clark RN - 12/10/2023 10:19 PM CST Problem: Discharge Planning Goal: Understanding discharge needs will improve Outcome: Progressing Problem: Fall Risk Goal: Ability to state ways to decrease the risk of falls will improve Outcome: Progressing Goal: Will remain free from falls Outcome: Progressing Goal: Will remain free from injury from falls Outcome: Progressing Problem: Lack of Knowledge Goal: [...] health care needs will improve Outcome: Progressing Problem: Activity: Goal: Capacity to carry out activities will improve Outcome: Progressing Goal: Mobility will improve Outcome: Progressing Goal: Range of joint motion will improve Outcome: Progressing Problem: Lack of Knowledge: Goal: Verbalization of understanding the information provided will improve Outcome: Progressing Problem: Coping: Goal: Ability to verbalize positive feelings about self will improve Outcome: Progressing Goal: Ability to identify appropriate support needs will improve Outcome: Progressing Goal: Ability to identify strategies to decrease anxiety will improve Outcome: Progressing Problem: Health Behavior: Goal: Ability to manage health-related needs will improve Outcome: Progressing Problem: Nutritional: Goal: Dietary intake will improve Outcome: Progressing Problem: Physical Regulation: Goal: Ability to maintain clinical measurements within normal limits will improve Outcome: Progressing Goal: Complications related to the disease process, condition or treatment will be avoided or minimized Outcome: Progressing Problem: Role Relationship: Goal: Ability to communicate needs accurately will improve Outcome: Progressing Goal: Ability to reevaluate and adapt role responsibilities will improve Outcome: Progressing Problem: Safety: Goal: Ability to remain free from injury will improve Outcome: Progressing Problem: Self-Care: Goal: Ability to participate in self-care as condition permits will improve Outcome: Progressing Goal: Verbalization of feelings and concerns over difficulty with self-care will improve Outcome: Progressing Problem: Skin Integrity: Goal: Risk for impaired skin integrity will decrease Outcome: Progressing Problem: Tissue Perfusion: Goal: Neurologic status will improve Outcome: Progressing Goal: Risk of venous thrombosis will decrease Outcome: Progressing Problem: Skin Integrity Impairment Risk Goal: Mobility will improve Outcome: Progressing Goal: Understanding of ways to prevent future skin breakdown will improve Outcome: Progressing Goal: Nutritional status will improve Outcome: Progressing Goal: Risk for impaired skin integrity will decrease Outcome: Progressing Problem: Neurosensory Goal: Achieves stable or improved neurological status Outcome: Progressing Goal: Absence of seizures Outcome: Progressing Goal: Achieves maximal functionality and self care Outcome: Progressing Goals: Clinical Goals for the Shift: Q4 neuro checks, Stable VS, Comfort, Safety Summary: AO x4. Q4 neuro checks done - no acute changes noted. Monitored vitals and labs. Patient vomited - looks like coffee groun d - informed EDUCATIONAL DIAGNOSTICIAN Kristen Carter, orders facilitated. Needs attended. Patient kept monitored. 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 * Plan of Care - Amie Rdz RN - 12/10/2023 5:39 PM CST Problem: Discharge Planning Goal: Understanding discharge needs will improve Outcome: Progressing Problem: Fall Risk Goal: Ability to state ways to decrease the risk of falls will improve Outcome: Progressing Goal: Will remain free from falls Outcome: Progressing Goal: Will remain free from injury from falls Outcome: Progressing Problem: Lack of Knowledge Goal: [...] health care needs will improve Outcome: Progressing Problem: Activity: Goal: Capacity to carry out activities will improve Outcome: Progressing Goal: Mobility will improve Outcome: Progressing Goal: Range of joint motion will improve Outcome: Progressing Problem: Lack of Knowledge: Goal: Verbalization of understanding the information provided will improve Outcome: Progressing Problem: Coping: Goal: Ability to verbalize positive feelings about self will improve Outcome: Progressing Goal: Ability to identify appropriate support needs will improve Outcome: Progressing Goal: Ability to identify strategies to decrease anxiety will improve Outcome: Progressing Problem: Health Behavior: Goal: Ability to manage health-related needs will improve Outcome: Progressing Problem: Nutritional: Goal: Dietary intake will improve Outcome: Progressing Problem: Physical Regulation: Goal: Ability to maintain clinical measurements within normal limits will improve Outcome: Progressing Goal: Complications related to the disease process, condition or treatment will be avoided or minimized Outcome: Progressing Problem: Role Relationship: Goal: Ability to communicate needs accurately will improve Outcome: Progressing Goal: Ability to reevaluate and adapt role responsibilities will improve Outcome: Progressing Problem: Safety: Goal: Ability to remain free from injury will improve Outcome: Progressing Problem: Self-Care: Goal: Ability to participate in self-care as condition permits will improve Outcome: Progressing Goal: Verbalization of feelings and concerns over difficulty with self-care will improve Outcome: Progressing Problem: Skin Integrity: Goal: Risk for impaired skin integrity will decrease Outcome: Progressing Problem: Tissue Perfusion: Goal: Neurologic status will improve Outcome: Progressing Goal: Risk of venous thrombosis will decrease Outcome: Progressing Problem: Skin Integrity Impairment Risk Goal: Mobility will improve Outcome: Progressing Goal: Understanding of ways to prevent future skin breakdown will improve Outcome: Progressing Goal: Nutritional status will improve Outcome: Progressing Goal: Risk for impaired skin integrity will decrease Outcome: Progressing Problem: Neurosensory Goal: Achieves stable or improved neurological status Outcome: Progressing Goal: Absence of seizures Outcome: Progressing Goal: Achieves maximal functionality and self care Outcome: Progressing Problem: Cardiovascular Goal: Maintains optimal cardiac output and hemodynamic stability Outcome: Progressing Goal: Absence of cardiac dysrhythmias or at baseline Outcome: Progressing Goals: Clinical Goals for the Shift: Q4 neuro checks, comfort/safety Summary: pt and family verbalized understanding 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 * Plan of Care - Indira Vera RN - 12/10/2023 3:26 PM CST CM met with pt and family at bedside. They are agreeable for pt to go to [facility] and to start insuranceauthorization. CM called Esther with [facility] to notify her and she will begin auth today. Other acute rehabs in [place] such [facility] and [place], [place] are further from their home. RASHID Johnson-MARAH, Nurse Blocker Hand [phone] 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 * Plan of Care - Indira Vera RN - 12/10/2023 1:46 PM CST [facility] are unable to accept pt as his insurance is OON. [facility] are willing to accept pt. Attempt to meet with pt and family at bedside; however, he is working with therapy. Will attempt again at a later time. RASHID Johnson-RN, Nurse Blocker Hand [phone] 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 * Plan of Care - Paresh Prieto SLP - 12/10/2023 1:43 PM CST Problem: Cognitive/Linguistics Goal: STG - Patient will recall new information Description: With 80% accuracy Outcome: Progressing Goal: STG - Patient will participate in further assessment of cognitive- linguistic skills Outcome: Progressing Problem: Communication/Motor Speech Goal: STG - Patient will participate in oral-motor exercises to improve strength Outcome: Progressing 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 * Plan of Care - Chapis Mcknight LPN - 12/10/2023 4:41 AM CST Problem: Discharge Planning Goal: Understanding discharge needs will improve 12/10/2023 0440 by Chapis Mcknight LPN Outcome: Progressing Flowsheets (Taken 12/07/2023 1800 by Dioni Lozano, RN) Understanding of discharge needs will improve: Identify discharge barriers Collaborate with case management interdisciplinary team Arrange for needed discharge resources and transportation as appropriate 12/09/2023 2357 by Chapis Mcknight LPN Outcome: Progressing Flowsheets (Taken 12/07/2023 1800 by Dioni Lozano, RN) Understanding of discharge needs will improve: Identify discharge barriers Collaborate with case management interdisciplinary team Arrange for needed discharge resources and transportation as appropriate Problem: Fall Risk Goal: Ability to state ways to decrease the risk of falls will improve 12/10/[id number] by Chapis Mcknight LPN Outcome: Progressing Flowsheets (Taken 12/07/2023 1800 by Dioni Lozano, RN) Ability to state ways to decrease the risk of falls will improve: Teach fall prevention measures Teach information regarding appropriate enviornmental changes [id number] by Chapis Mcknight LPN Outcome: Progressing Goal: Will remain free from falls 12/10/[id number] by Chapis Mcknight LPN Outcome: Progressing Flowsheets (Taken 12/07/2023 1800 by Dioni Lozano, RN) Will remain free from falls: Assess risk factors for falls Implement fall prevention measures Collaborate with other disciplines [id number] by Chapis Mcknight LPN Outcome: Progressing Goal: Will remain free from injury from falls 12/10/2023439 by Chapis Mcknight LPN Outcome: Progressing Flowsheets (Taken 12/07/2023 1800 by Dioni Lozano, RN) Will remain free from injury from falls: Provide safe environment for conduction of activities of daily living in hospital environment 12/09/20232356 by Chapis Mcknight LPN Outcome: Progressing Problem: Lack of Knowledge Goal: Ability to develop a pain control plan will improve 12/10/2023439 by Chapis Mcknight LPN Outcome: Progressing 12/09/20232356 by Chapis Mcknight LPN Outcome: Progressing Problem: Medication Goal: Satisfaction with pain management medication regimen will improve 12/10/2023439 by Chapis Mcknight LPN Outcome: Progressing 12/09/20232356 by Chapis Mcknight LPN Outcome: Progressing Problem: Sensory Goal: Ability to identify factors that increase pain levels will improve while working to decrease the patient's pain levels 12/10/2023439 by Chapis Mcknight LPN Outcome: Progressing 12/09/20232356 by Chapis Mcknight LPN Outcome: Progressing Problem: Coping Goal: Ability to cope will improve 12/10/2023 0440 by Chapis Mcknight LPN Outcome: Progressing 12/09/20232356 by Chapis Mcknight LPN Outcome: Progressing Problem: Health Behavior Goal: Identification of resources available to assist in meeting health care needs will improve 12/10/2023 0440 by Chapis Mcknight LPN Outcome: Progressing 12/09/2023 235 by Chapis Mcknight LPN Outcome: Progressing Problem: Activity: Goal: Capacity to carry out activities will improve 12/10/2023 0440 by Chapis Mcknight LPN Outcome: Progressing 12/09/2023 235 by Chapis Mcknight LPN Outcome: Progressing Goal: Mobility will improve 12/10/2023 0440 by Chapis Mcknight LPN Outcome: Progressing 12/09/20232356 by Chapis Mcknight LPN Outcome: Progressing Goal: Range of joint motion will improve 12/10/2023 0440 by Chapis Mcknight LPN Outcome: Progressing 12/09/20232356 by Chapis Mcknight LPN Outcome: Progressing Problem: Lack of Knowledge: Goal: Verbalization of understanding the information provided will improve 12/10/2023 0440 by Chapis Mcknight LPN Outcome: Progressing 12/09/20232356 by Chapis Mcknight LPN Outcome: Progressing Problem: Coping: Goal: Ability to verbalize positive feelings about self will improve 12/10/2023 0440 by Chapis Mcknight LPN Outcome: Progressing 12/09/2023 2357 by Chapis Mcknight LPN Outcome: Progressing Goal: Ability to identify appropriate support needs will improve 12/10/2023 0440 by Chapis Mcknight LPN Outcome: Progressing 12/09/20232356 by Chapis Mcknight LPN Outcome: Progressing Goal: Ability to identify strategies to decrease anxiety will improve 12/10/2023 0440 by Chapis Mcknight LPN Outcome: Progressing 12/09/2023 2357 by Chapis Mcknight LPN Outcome: Progressing Problem: Health Behavior: Goal: Ability to manage health-related needs will improve 12/10/2023 0440 by Chapis Mcknight LPN Outcome: Progressing 12/09/2023 235 by Chapis Mcknight LPN Outcome: Progressing Problem: Nutritional: Goal: Dietary intake will improve 12/10/2023 0440 by Chapis Mcknight LPN Outcome: Progressing 12/09/2023 235 by Chapis Mcknight LPN Outcome: Progressing Problem: Physical Regulation: Goal: Ability to maintain clinical measurements within normal limits will improve 12/10/2023 0440 by Chapis Mcknight LPN Outcome: Progressing 12/09/20232356 by Chapis Mcknight LPN Outcome: Progressing Goal: Complications related to the disease process, condition or treatment will be avoided or minimized 12/10/2023 0440 by Chapis Mcknight LPN Outcome: Progressing 12/09/20232356 by Chapis Mcknight LPN Outcome: Progressing Problem: Role Relationship: Goal: Ability to communicate needs accurately will improve 12/10/2023 0440 by Chapis Mcknight LPN Outcome: Progressing 12/09/20232356 by Chapis Mcknight LPN Outcome: Progressing Goal: Ability to reevaluate and adapt role responsibilities will improve 12/10/2023 0440 by Chapis Mcknight LPN Outcome: Progressing 12/09/2023 235 by Chapis Mcknight LPN Outcome: Progressing Problem: Safety: Goal: Ability to remain free from injury will improve 12/10/2023 0440 by Chapis Mcknight LPN Outcome: Progressing 12/09/2023 235 by Chapis Mcknight LPN Outcome: Progressing Problem: Self-Care: Goal: Ability to participate in self-care as condition permits will improve 12/10/2023 0440 by Chapis Mcknight LPN Outcome: Progressing 12/09/2023 235 by Chapis Mcknight LPN Outcome: Progressing Goal: Verbalization of feelings and concerns over difficulty with self-care will improve 12/10/2023 0440 by Chapis Mcknight LPN Outcome: Progressing 12/09/2023 2357 by Chapis Mcknight LPN Outcome: Progressing Problem: Skin Integrity: Goal: Risk for impaired skin integrity will decrease 12/10/2023 0440 by Chapis Mcknight LPN Outcome: Progressing 12/09/2023 2357 by Chapis Mcknight LPN Outcome: Progressing Problem: Tissue Perfusion: Goal: Neurologic status will improve 12/10/2023 0440 by Chapis Mcknight LPN Outcome: Progressing 12/09/2023 2357 by Chapis Mcknight LPN Outcome: Progressing Goal: Risk of venous thrombosis will decrease 12/10/2023 0440 by Chapis Mcknight LPN Outcome: Progressing 12/09/2023 2357 by Chapis Mcknight LPN Outcome: Progressing Problem: Skin Integrity Impairment Risk Goal: Mobility will improve 12/10/2023 0440 by Chapis Mcknight LPN Outcome: Progressing 12/09/2023 2357 by Chapis Mcknight LPN Outcome: Progressing Goal: Understanding of ways to prevent future skin breakdown will improve 12/10/2023 0440 by Chapis Mcknight LPN Outcome: Progressing 12/09/2023 2357 by Chapis Mcknight LPN Outcome: Progressing Goal: Nutritional status will improve 12/10/2023 0440 by Chapis Mcknight LPN Outcome: Progressing 12/09/2023 2357 by Chapis Mcknight LPN Outcome: Progressing Goal: Risk for impaired skin integrity will decrease 12/10/2023 0440 by Chapis Mcknight LPN Outcome: Progressing 12/09/2023 2357 by Chapis Mcknight LPN Outcome: Progressing Problem: Neurosensory Goal: Achieves stable or improved neurological status 12/10/2023 0440 by Chapis Mcknight LPN Outcome: Progressing 12/09/2023 2357 by Chapis Mcknight LPN Outcome: Progressing Goal: Absence of seizures 12/10/2023 0440 by Chapis Mcknight LPN Outcome: Progressing 12/09/2023 2357 by Chapis Mcknight LPN Outcome: Progressing Goal: Achieves maximal functionality and self care 12/10/2023 0440 by Chapis Mcknight LPN Outcome: Progressing 12/09/2023 2357 by Chapis Mcknight LPN Outcome: Progressing Goals: Clinical Goals for the Shift: Q4 neuro checks, comfort/safety Summary: Q4 neuro checks completed with no acute changes. Left sided weakness and blurry vision noted. Patient is A&Ox's 4 on room air, unlabored breathing, bed placed in lowest position and calllight within reach. 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 * Plan of Care - Chapis Mcknight LPN - 12/09/2023 11:57 PM CST Problem: Discharge Planning Goal: Understanding discharge needs will improve Outcome: Progressing Flowsheets (Taken 12/07/2023 1800 by Dioni Lozano RN) Understanding of discharge needs will improve: Identify discharge barriers Collaborate with case management interdisciplinary team Arrange for needed discharge resources and transportation as appropriate Problem: Fall Risk Goal: Ability to state ways to decrease the risk of falls will improve Outcome: Progressing Goal: Will remain free from falls Outcome: Progressing Goal: Will remain free from injury from falls Outcome: Progressing Problem: Lack of Knowledge Goal: [...] health care needs will improve Outcome: Progressing Problem: Activity: Goal: Capacity to carry out activities will improve Outcome: Progressing Goal: Mobility will improve Outcome: Progressing Goal: Range of joint motion will improve Outcome: Progressing Problem: Lack of Knowledge: Goal: Verbalization of understanding the information provided will improve Outcome: Progressing Problem: Coping: Goal: Ability to verbalize positive feelings about self will improve Outcome: Progressing Goal: Ability to identify appropriate support needs will improve Outcome: Progressing Goal: Ability to identify strategies to decrease anxiety will improve Outcome: Progressing Problem: Health Behavior: Goal: Ability to manage health-related needs will improve Outcome: Progressing Problem: Nutritional: Goal: Dietary intake will improve Outcome: Progressing Problem: Physical Regulation: Goal: Ability to maintain clinical measurements within normal limits will improve Outcome: Progressing Goal: Complications related to the disease process, condition or treatment will be avoided or minimized Outcome: Progressing Problem: Role Relationship: Goal: Ability to communicate needs accurately will improve Outcome: Progressing Goal: Ability to reevaluate and adapt role responsibilities will improve Outcome: Progressing Problem: Safety: Goal: Ability to remain free from injury will improve Outcome: Progressing Problem: Self-Care: Goal: Ability to participate in self-care as condition permits will improve Outcome: Progressing Goal: Verbalization of feelings and concerns over difficulty with self-care will improve Outcome: Progressing Problem: Skin Integrity: Goal: Risk for impaired skin integrity will decrease Outcome: Progressing Problem: Tissue Perfusion: Goal: Neurologic status will improve Outcome: Progressing Goal: Risk of venous thrombosis will decrease Outcome: Progressing Problem: Skin Integrity Impairment Risk Goal: Mobility will improve Outcome: Progressing Goal: Understanding of ways to prevent future skin breakdown will improve Outcome: Progressing Goal: Nutritional status will improve Outcome: Progressing Goal: Risk for impaired skin integrity will decrease Outcome: Progressing Problem: Neurosensory Goal: Achieves stable or improved neurological status Outcome: Progressing Goal: Absence of seizures Outcome: Progressing Goal: Achieves maximal functionality and self care Outcome: Progressing Goals: Clinical Goals for the Shift: Q4 neuro checks, comfort/safety Summary All goals were met. 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 : No Payor Source: Medicare advantage Race: Black or -[place]er Ethnicity: Non- Gender Identity: Male (12/09/23 4425) Current Situation: Current Situation Living Arrangements: Spouse/significant other Type of Residence: Private residence (12/09/23 1616) Legal History: Support Systems and Spirituality: Support Systems and Spirituality Support System: Spouse Spouse Name/Contact Information: Yakov Gtz (12/09/23 161) Strengths, Assets, Liabilities and Stressors: SDOH Transportation Needs: No Transportation Needs (12/08/2023) PRAPARE - Transportation Lack of Transportation (Medical): No Lack of Transportation (Non-Medical): No Financial Resource Strain: Low Risk (12/08/2023) Overall Financial Resource Strain (CARDIA) Difficulty of Paying Living Expenses: Not hard at all Housing Stability: Low Risk (12/08/2023) Housing Stability Vital Sign Unable to Pay for Housing in the Last Year: No Number of Places Lived in the Last Year: 1 Unstable Housing in the Last Year: No Social Connections: Moderately Integrated (12/08/2023) Social Connection and Isolation Panel [NHANES] Frequency of Communication with Friends and Family: More than three times a week Frequency of Social Gatherings with Friends and Family: More than three times a week Attends Tenriism Services: More than 4 times per year Active Member of Clubs or Organizations: No Attends Club or Organization Meetings: Never Marital Status: Food Insecurity: No Food Insecurity (12/08/2023) Hunger Vital Sign Worried About Running Out of Food in the Last Year: Never true Ran Out of Food in the Last Year: Never true Tobacco Use: Medium Risk (11/18/2023) Patient History Smoking Tobacco Use: Former Smokeless Tobacco Use: Never Passive Exposure: Not on file Alcohol Use: Not At Risk (06/29/2022) AUDIT-C Frequency of Alcohol Consumption: Monthly or less Average Number of Drinks: 3 or 4 Frequency of Binge Drinking: Never PHQ Screening Over the last 2 weeks, how often have you been bothered by any of the following problems? Little Interest or Pleasure in Doing Things: Not at all Feeling Down, Depressed, or Hopeless: Not at all PHQ-2 Total Score (If total score is 3 or more points, staff should administer the PHQ-9): 0 Over the past 2 weeks, how often have you been bothered by any of the following problems? Little Interest or Pleasure in Doing Things: Not at all Feeling Down, Depressed, or Hopeless: Not at all PHQ-2 Total Score (If total score is 3 or more points, staff should administer the PHQ-9): 0 Trouble Falling or Staying Asleep, or Sleeping too Much: Not at all Feeling Tired or Having Little Energy: Not at all Poor Appetite or Overeating: Not at all [...] Moving Around a lot More Than Usual: Not at all Thoughts That You Would be Better off , or of Hurting Yourself in Some Way: Not at all PHQ-9 Total Score: 0 E-Cigarette/Vaping Questions Responses E-cigarette/Vaping Use Never User Substance Abuse, Mental Health, and Trauma History: Not assess at this time. Risk to Self and Others: Not assess at this time. Impressions and Recommendations: AIRLINE OPERATIONS AGENT received consult for Advance care planning. AIRLINE OPERATIONS AGENT met with pt and pt's family(spouse and two daughters) at bedside today. AIRLINE OPERATIONS AGENT introduced self. Pt is still interested in POA document. AIRLINE OPERATIONS AGENT briefly explained POA document to pt.Pt thanked AIRLINE OPERATIONS AGENT and has no other questions regarding POA document. Pt and pt's family confirmed that their goal is for pt to go to [facility] at time of discharge. AIRLINE OPERATIONS AGENT will FU as needed. 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 Referral submitted via [facility]. RASHID Johnson-RN, Nurse Blocker Hand [phone] 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 * [facility]IN Note - Indira Vera RN - 12/09/2023 3:40 PM CST Images from the original note were not included. Patient Information: Patient Header Patient Information Patient Name: GUNJAN GTZ JR. Date of 1945 (78 years) Sex: Male Phone Numbers: Home: , Referral Summary Patient Information Patient Name: GUNJAN GTZ JR. Date of 1945 (78 years) Sex: Male Phone Numbers: Home: Attending Provider: Maxi Carrion MD Allergies: No Known Allergies Isolation: None Infection: None Code Status: FULL Ht: 180.3 cm (5' 10.98 ) Wt: 106.1 kg (233 lb 12.8 oz) Admission Cmt: None Principal Problem: Acute CVA (cerebrovascular accident) ([facility]) [I63.9] Elopement Risk Date/Time Risk/Reason for Elopement User 12/08/23 0727 No risk MJB 12/07/23 1321 No risk MFS Intake/Output 12/07/23 0700 - 12/08/23 0659 12/08/23 0700 - 12/09/23 0659 12/09/23 0700 - 12/10/23 0659 Total 8050-7684 9706-6786 6391-6719 Total 2810-0654 7005-6382 7463-3711 Total Intake (ml) 420 720.5 240 -- 960.5 -- -- -- -- Output (ml) 550 950 300 -- 1250 200 -- -- 200 Net (ml) -130 -229.5 -60 -- -289.5 -200 -- -- -200 Last Weight 103.4 kg (228 lb) 103.4 kg (227 lb 15.3 oz) -- 106.1 kg (233 lb 12.8 oz) -- -- -- -- -- Patient Lines/Drains/Airways Status Active Airway / Central venous catheter / Drain / Epidural cathether / Intraosseous line / Peripherally inserted central catheter / Peripheral intravenous line / Arterial line Name Placement date Placement time Site Days Peripheral IV 12/07/23 20 G Right Antecubital 12/07/23 1310 Antecubital 2 Peripheral IV 12/07/23 Left Antecubital 12/07/23 1346 Antecubital 2 Active Wound Assessment Active Wound / 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 / Incision Surgical Site 11/24/21 Left Knee Date First Assessed 11/24/21 Site Knee Time First Assessed 0902 Days 745 Location Orientation: Left Surgical Site 11/24/21 Right Knee Date First Assessed 11/24/21 Site Knee Time First Assessed 0902 Days 745 Location Orientation: Right Mejía Fall Risk Flowsheet Row Most Recent Value Prior Fall Event (Autopopulated from EMR) None found ............filed at 12/09/2023 0803 History of Falling 0 ............filed at 12/09/2023 0803 Secondary Diagnosis 15 ............filed at 12/09/2023 0803 Ambulatory Aids 0 ............filed at 12/09/2023 0803 Intravenous Therapy/Heparin/Saline Lock 20 ............filed at 12/09/2023 0803 Gait/Transferring 20 ............filed at 12/09/2023 0803 Mental Status 0 ............filed at 12/09/2023 0803 Mejía Fall Risk Score 55 ............filed at 12/09/2023 0803 Vital Signs 12/08 0700 0659 0700 1540 Most Recent Temp (??C) 36.3 - 36.8 36.4 - 37.1 37.1 (98.7) 1200 Pulse 52 - 93 54 - 65 60 1200 Resp 11 - 24 19 - 20 20 1200 SpO2 (%) 95 - 100 99 99 1200 BP 102/67 - 160/98 137/87 - 139/92 139/92 1200 MAP (mmHg) 74 - 132 99 - 103 103 1200 Default Flowsheet Data (most recent) Endurance Tests No documentation. Default Flowsheet Data (last 48 hours) Oxygen Row Name 12/09/23 1317 12/09/23 12:00:57 12/09/23 08:03:19 12/09/23 0449 12/09/23 0400 Oxygen Therapy/Pulse Ox O2 Therapy None (Room air) None (Room air) None (Room air) -- -- SpO2 -- 99 % 99 % 99 % 100 % Row Name 12/09/23 0345 12/09/23 0330 12/09/23 0315 12/09/23 0300 12/09/23 0245 Oxygen Therapy/Pulse Ox SpO2 100 % 99 % 98 % 98 % 97 % Row Name 12/09/23 0230 12/09/23 0215 12/09/23 0200 12/09/23 0145 12/09/23 0130 Oxygen Therapy/Pulse Ox SpO2 98 % 98 % 99 % 97 % 98 % Row Name 12/09/23 0115 12/09/23 0100 12/09/23 0015 12/09/23 0000 12/08/23 2345 Oxygen Therapy/Pulse Ox SpO2 98 % 99 % 98 % 97 % 97 % Row Name 12/08/23 2330 12/08/23 2315 12/08/23 2300 12/08/23 2245 12/08/23 2230 Oxygen Therapy/Pulse Ox SpO2 99 % 96 % 97 % 97 % 97 % Row Name 12/08/23 2215 12/08/23 2200 12/08/23 2145 12/08/23 2130 12/08/23 2115 Oxygen Therapy/Pulse Ox SpO2 97 % 98 % 96 % 96 % 97 % Row Name 12/08/23 2100 12/08/23 2030 12/08/23 2015 12/08/23199912/08/23 1945 Oxygen Therapy/Pulse Ox SpO2 96 % 98 % 97 % 98 % 99 % Row Name 12/08/23 1930 12/08/23 1915 12/08/23 1900 12/08/23 1800 12/08/23 1730 Oxygen Therapy/Pulse Ox SpO2 98 % 99 % 99 % 100 % 100 % Row Name 12/08/23 1600 12/08/23 1527 12/08/23 1427 12/08/23 1327 12/08/23 1227 Oxygen Therapy/Pulse Ox O2 Therapy -- None (Room air) None (Room air) None (Room air) -- SpO2 100 % 99 % 100 % 97 % 98 % Patient Activity -- At rest At rest At rest -- Row Name 12/08/23 1200 12/08/23 1127 12/08/23 1027 12/08/23 0927 12/08/23 0827 Oxygen Therapy/Pulse Ox O2 Therapy -- None (Room air) -- None (Room air) -- SpO2 98 % 95 % 97 % -- 97 % Patient Activity -- At rest -- At rest -- Row Name 12/08/23 0800 12/08/23 0730 12/08/23 0727 12/08/23 0700 12/08/23 0628 Oxygen Therapy/Pulse Ox O2 Therapy -- -- None (Room air) -- -- SpO2 98 % 99 % 98 % 96 % 98 % Patient Activity -- -- At rest -- -- Row Name 12/08/23 0627 12/08/23 0626 12/08/23 0625 12/08/23 0624 12/08/23 0600 Oxygen Therapy/Pulse Ox SpO2 98 % 99 % 97 % 99 % 98 % Row Name 12/08/23 0550 12/08/23 0540 12/08/23 0530 12/08/23 0529 12/08/23 0528 Oxygen Therapy/Pulse Ox SpO2 97 % 97 % 98 % 98 % 98 % Row Name 12/08/23 0527 12/08/23 0526 12/08/23 0525 12/08/23 0520 12/08/23 0515 Oxygen Therapy/Pulse Ox SpO2 98 % 97 % 98 % 99 % 98 % Row Name 12/08/23 0510 12/08/23 0500 12/08/23 0450 12/08/23 0440 12/08/23 0430 Oxygen Therapy/Pulse Ox SpO2 97 % 96 % 95 % 96 % 96 % Row Name 12/08/23 0429 12/08/23 0428 12/08/23 0427 12/08/23 0426 12/08/23 0425 Oxygen Therapy/Pulse Ox SpO2 96 % 97 % 97 % 98 % 96 % Row Name 12/08/23 0420 12/08/23 0415 12/08/23 0410 12/08/23 0400 12/08/23 0345 Oxygen Therapy/Pulse Ox O2 Therapy -- -- -- None (Room air) -- SpO2 95 % 97 % 98 % 97 % 99 % Patient Activity -- -- -- At rest -- Row Name 12/08/23 0330 12/08/23 0329 12/08/23 0328 12/08/23 0327 12/08/23 0326 Oxygen Therapy/Pulse Ox SpO2 99 % 98 % 98 % 97 % 99 % Row Name 12/08/23 0325 12/08/23 0315 12/08/23 0300 12/08/23 0245 12/08/23 0230 Oxygen Therapy/Pulse Ox SpO2 100 % 100 % 98 % 98 % 98 % Row Name 12/08/23 0227 12/08/23 0226 12/08/23 0225 12/08/23 0220 12/08/23 0215 Oxygen Therapy/Pulse Ox SpO2 97 % 98 % 98 % 98 % 97 % Row Name 12/08/23 0210 12/08/23 0205 12/08/23 0200 12/08/23 0155 12/08/23 0150 Oxygen Therapy/Pulse Ox SpO2 97 % 96 % 98 % 97 % 98 % Row Name 12/08/23 0145 12/08/23 0140 12/08/23 0135 12/08/23 0130 12/08/23 0128 Oxygen Therapy/Pulse Ox SpO2 99 % 98 % 96 % 98 % 97 % Row Name 12/08/23 0127 12/08/23 0126 12/08/23 0125 12/08/23 0120 12/08/23 0115 Oxygen Therapy/Pulse Ox SpO2 92 % 98 % 98 % 98 % 96 % Row Name 12/08/23 0110 12/08/23 0105 12/08/23 0100 12/08/23 0030 12/08/23 0028 Oxygen Therapy/Pulse Ox SpO2 97 % 98 % 98 % 97 % 97 % Row Name 12/08/23 0027 12/08/23 0026 12/08/23 0000 12/07/23 2330 12/07/23 2329 Oxygen Therapy/Pulse Ox O2 Therapy -- -- None (Room air) -- -- SpO2 97 % 97 % 96 % 99 % 97 % Patient Activity -- -- At rest -- -- Row Name 12/07/23 2328 12/07/23 2327 12/07/23 2326 12/07/23 2325 12/07/23 2320 Oxygen Therapy/Pulse Ox SpO2 97 % 97 % 97 % 97 % 97 % Row Name 12/07/23 23112/07/23 2300 12/07/23 22512/07/23 22412/07/23 2230 Oxygen Therapy/Pulse Ox SpO2 96 % 96 % 96 % 97 % 96 % Row Name 12/07/238 12/07/23222612/07/23222512/07/23222412/07/23 222 Oxygen Therapy/Pulse Ox SpO2 98 % 99 % 99 % 95 % 96 % Row Name 12/07/23220912/07/23220412/07/23219912/07/23214912/07/232134 Oxygen Therapy/Pulse Ox SpO2 97 % 98 % 99 % 97 % 96 % Row Name 12/07/23212712/07/23212612/07/23212512/07/23211912/07/232104 Oxygen Therapy/Pulse Ox SpO2 97 % 97 % 97 % 99 % 98 % Row Name 12/07/23209912/07/23205712/07/23205612/07/23205512/07/232049 Oxygen Therapy/Pulse Ox SpO2 98 % 98 % 98 % 98 % 97 % Row Name 12/07/23204412/07/23203412/07/23202912/07/23202812/07/232027 Oxygen Therapy/Pulse Ox SpO2 100 % 99 % 98 % 96 % 98 % Row Name 12/07/23202612/07/23202512/07/23202412/07/23201912/07/232014 Oxygen Therapy/Pulse Ox SpO2 99 % 98 % 98 % 98 % 98 % Row Name 12/07/23199912/07/23195612/07/23195512/07/23195412/07/231927 Oxygen Therapy/Pulse Ox O2 Therapy None (Room air) -- -- -- -- SpO2 100 % 100 % 100 % 99 % 98 % Patient Activity At rest -- -- -- -- Row Name 12/07/23192612/07/23192512/07/23192412/07/23 19012/07/23 1857 Oxygen Therapy/Pulse Ox SpO2 99 % 100 % 100 % 99 % 98 % Row Name 12/07/23 1830 12/07/23 1827 12/07/23 1758 12/07/23 1757 12/07/23 1756 Oxygen Therapy/Pulse Ox SpO2 97 % 99 % 97 % 99 % 97 % Row Name 12/07/23 1738 12/07/23 1737 12/07/23 1736 12/07/23 1735 12/07/23 1734 Oxygen Therapy/Pulse Ox SpO2 99 % 98 % 98 % 96 % 99 % Row Name 12/07/23 1733 12/07/23 1732 12/07/23 1731 12/07/23 1730 12/07/23 1729 Oxygen Therapy/Pulse Ox SpO2 98 % 97 % 98 % 97 % 98 % Row Name 12/07/23 1728 12/07/23 1727 12/07/23 1726 12/07/23 1725 12/07/23 1724 Oxygen Therapy/Pulse Ox SpO2 98 % 98 % 98 % 98 % 98 % Row Name 12/07/23 1723 12/07/23 1722 12/07/23 1721 12/07/23 1720 12/07/23 1719 Oxygen Therapy/Pulse Ox SpO2 99 % 97 % 97 % 97 % 97 % Row Name 12/07/23 1718 12/07/23 1717 12/07/23 1716 12/07/23 1715 12/07/23 1714 Oxygen Therapy/Pulse Ox SpO2 97 % 98 % 98 % 98 % 97 % Row Name 12/07/23 1713 12/07/23 1712 12/07/23 1711 12/07/23 1710 12/07/23 1709 Oxygen Therapy/Pulse Ox SpO2 97 % 97 % 97 % 98 % 99 % Row Name 12/07/23 1708 12/07/23 1707 12/07/23 1706 12/07/23 1705 12/07/23 1704 Oxygen Therapy/Pulse Ox SpO2 99 % 98 % 98 % 100 % 100 % Row Name 12/07/23 1703 12/07/23 1702 12/07/23 1701 12/07/23 1700 12/07/23 1657 Oxygen Therapy/Pulse Ox O2 Therapy -- -- -- -- None (Room air) SpO2 97 % 99 % 98 % 98 % 97 % Patient Activity -- -- -- -- At rest Row Name 12/07/23 1656 12/07/23 1627 12/07/23 1557 Oxygen Therapy/Pulse Ox SpO2 97 % 100 % 97 % Nursing Nutrition None Nursing Mobility Activity 1300 Chair 1200 Chair 1100 Chair 1000 Resting in bed;Refused by patient/family 0803 Resting in bed;Turn 0600 Sleeping 0400 Sleeping;Bedrest 0200 Sleeping;Bedrest 0000 Sleeping;Bedrest 12/08 2200 Chair 12/08 2000 Chair 12/08 1745 Resting in bed 12/08 1530 Resting in bed 12/08 1330 Resting in bed 12/08 1127 Chair 12/08 0932 Resting in bed 12/08 0727 Resting in bed 12/08 0600 Resting in bed 12/08 0400 Resting in bed 12/08 0200 Resting in bed 12/08 0000 Resting in bed 12/07 2200 Chair 12/07 2000 Bedrest;Turn 12/07 1800 Bedrest;Turn 12/07 1657 Bedrest;Turn Patient Assistance 0600 Moderate assist, patient does 50-74% 0400 Moderate assist, patient does 50-74% 0200 Moderate assist, patient does 50-74% 0000 Moderate assist, patient does 50-74% 12/08 2200 Moderate assist, patient does 50-74% 12/08 2000 Moderate assist, patient does 50-74% 12/08 1745 Moderate assist, patient does 50-74% 12/08 1530 Moderate assist, patient does 50-74% 12/08 1330 Moderate assist, patient does 50-74% 12/08 0932 Standby assist, set-up cues, supervision of patient - no hands on 12/08 0727 Standby assist, set-up cues, supervision of patient - no hands on 12/08 0600 Standby assist, set-up cues, supervision of patient - no hands on 12/08 0400 Standby assist, set-up cues, supervision of patient - no hands on 12/08 0200 Standby assist, set-up cues, supervision of patient - no hands on 12/08 0000 Standby assist, set-up cues, supervision of patient - no hands on 12/07 2199 Standby assist, set-up cues, supervision of patient - no hands on 12/07 2000 Minimal assist, patient does 75% or more 12/07 1800 Minimal assist, patient does 75% or more 12/07 165 Minimal assist, patient does 75% or more Ambulation Response 12/08 0600 Tolerated well 12/08 0400 Tolerated well 12/08 0200 Tolerated well 12/08 0000 Tolerated well 12/07 220 Tolerated well Repositioned 1300 -- (Comment: [facility] Refused by patient/family 0803 Supine 0600 Supine 0400 Left Side;Wedge support 0200 Supine 0000 Right Side;Wedge support 12/08 1999 Pillow support 12/08 1745 Supine;Turn self 12/08 1530 Right Side;Turn self;Pillow support 12/08 1330 Turn self;Supine 12/08 0932 Turn self;Right Side 12/08 0727 Turn self;Supine 12/08 0600 Supine;Semi-fowlers;Turn self 12/08 0400 Right Side;Semi-fowlers;Turn self 12/08 0200 Semi-fowlers;Supine;Pillow support 12/08 0000 Semi-fowlers;Pillow support;Supine 12/07 220 Other (Comment) (Comment: up in chair) 12/07 1999 Turn self;Pillow support 12/07 1800 Turn self;Semi-fowlers;Pillow support;Supine 12/07 165 Turn self;Semi-fowlers;Supine Head of Bed Elevated 1200 HOB 45 0803 HOB 90 0600 HOB 30 0400 HOB 30 0200 HOB 30 0000 HOB 30 12/08 1745 HOB 30 12/08 1530 HOB 30 12/08 1330 HOB 30 12/08 0932 HOB 30 12/08 0727 HOB 45 12/08 0600 HOB 30 12/08 0400 HOB 30 12/08 0200 HOB 30 12/08 0000 HOB 30 12/07 2000 HOB 60 12/07 1800 HOB 60 12/07 1657 HOB 60 Heels/Feet 1200 Heels elevated off bed 0803 Foot of bed elevated 0600 Heels elevated off bed 0400 Foot of bed elevated 0000 Foot of bed elevated 12/08 2000 Foot of bed elevated 12/08 1745 Foot of bed elevated 12/08 1530 Foot of bed elevated;Heels elevated off bed 12/08 1330 Foot of bed elevated 12/08 0932 Foot of bed elevated;Heels elevated off bed 12/08 0727 Foot of bed elevated 12/08 0200 Foot of bed elevated 12/08 0000 Foot of bed elevated 12/07 2000 Foot of bed elevated 12/07 1800 Foot of bed elevated 12/07 1657 Foot of bed elevated Range of Motion Interventions 1200 Active;All extremities 1100 Passive;Left arm 0803 Passive;Left arm;Left leg 0600 All extremities;Left arm;Left leg 0419 All extremities;Left arm;Left leg 0400 Active;All extremities 0200 Active;All extremities 0000 Active;All extremities 12/08 2200 Active;All extremities 12/08 2000 Active;All extremities 12/08 1745 Active;All extremities 12/08 1600 Active;All extremities 12/08 1530 Active;All extremities 12/08 1527 Active;All extremities 12/08 1330 Active;All extremities 12/08 1127 Active;All extremities 12/08 0932 Active;All extremities 12/08 0727 Active;All extremities 12/08 0600 Active;All extremities 12/08 0400 Active;All extremities 12/08 0200 Active;All extremities 12/08 0000 Active;All extremities 12/07 2200 Active;All extremities 12/07 2000 Active;All extremities 12/07 1800 Active;All extremities 12/07 1657 Active;All extremities Type of Device 12/08 1745 Mechanical compression 12/08 1530 Mechanical compression 12/08 1330 Mechanical compression 12/08 1327 Mechanical compression 12/08 1127 Mechanical compression 12/08 0932 Mechanical compression 12/08 0727 Mechanical compression 12/08 0600 Mechanical compression 12/08 0400 Mechanical compression 12/08 0200 Mechanical compression 12/08 0000 Mechanical compression 12/07 2200 Mechanical compression 12/07 2000 Mechanical compression 12/07 1800 Mechanical compression 12/07 1657 Mechanical compression Mechanical Compression Site 12/08 1745 Bilateral 12/08 1530 Bilateral 12/08 1330 Bilateral 12/08 1327 Bilateral 12/08 1127 Bilateral 12/08 0932 Bilateral 12/08 0727 Bilateral 12/08 0600 Bilateral 12/08 0400 Bilateral 12/08 0200 Bilateral 12/08 0000 Bilateral 12/07 2200 Bilateral 12/07 1999 Bilateral 12/07 1800 Bilateral 12/07 165 Bilateral Mechanical Compression Type 12/08 1745 IPC/SCD 12/08 1530 IPC/SCD 12/08 1330 IPC/SCD 12/08 1327 IPC/SCD 12/08 1127 IPC/SCD 12/08 0932 IPC/SCD 12/08 0727 IPC/SCD 12/08 0600 IPC/SCD 12/08 0400 IPC/SCD 12/08 0200 IPC/SCD 12/08 0000 IPC/SCD 12/07 2200 IPC/SCD 12/07 2000 IPC/SCD 12/07 1800 IPC/SCD 12/07 1657 IPC/SCD Mechanical Compression Status 0803 Off 12/08 1745 On 12/08 1530 On 12/08 1330 Off 12/08 1327 On 12/08 1127 Off 12/08 0932 On 12/08 0727 On 12/08 0600 On 12/08 0400 On 12/08 0200 On 12/08 0000 On 12/07 2200 On 12/07 2000 On 12/07 1800 On 12/07 165 On All Meds/Most Recent Administrations ioversoL (OPTIRAY 350) syringe 125 mL [[id number]] Ordering Provider: Severino Mejía DO Status: Completed (Past End Date/Time) Ordered On: 12/07/23 1304 Starts/Ends: 12/07/23 1304 - 12/07/23 1317 Ordered Dose (Remaining/Total): 125 mL (0/1) Route: intravenous Frequency: Once in imaging Ordered Rate/Order Duration: -- / -- Timestamps Action Dose Route Other Information 12/07/23 1317 Contrast Given 120 mL intravenous Performed by: Mendoza Kidd RT Scanned Package: [id number] sodium chloride 0.9% flush 10 mL [[id number]] Ordering Provider: Severino Mejía DO Status: Completed (Past End Date/Time) Ordered On: 12/07/23 1323 Starts/Ends: 12/07/23 1324 - 12/07/231326 Ordered Dose (Remaining/Total): 10 mL (0/1) Route: intra-catheter Frequency: Once Ordered Rate/Order Duration: -- / -- Admin Instructions: Flush IV catheter BEFORE and AFTER tenecteplase administration. Timestamps Action Dose Route Other Information 12/07/231326 Given 10 mL intra-catheter Performed by: Tal Johnston RN Scanned Package: [id number] tenecteplase (TNKase) injection for STROKE 25 mg [[id number]] Ordering Provider: Severino Mejía, Status: Completed (Past End Date/Time) Ordered On: 12/07/231322 Starts/Ends: 12/07/231323 - 12/07/231326 Ordered Dose (Remaining/Total): 0.25 mg/kg (0/1) Route: intravenous Frequency: Once Ordered Rate/Order Duration: -- / -- Admin Instructions: 1. Swab Sterile Water & Tenecteplase vials with alcohol pad. 2. Use the included syringe to aseptically WITHDRAW 10 mL of Sterile Water for injection. 3. INJECT entire contents (10 mL) into the Tenecteplase vial, directing the diluent at the powder. Slight foaming is normal. 4. Gently SWIRL until contents are completely dissolved. DO NOT SHAKE. Reconstitution should be complete in approximately 1 minute. Final concentration is 5 mg/mL. 5. INSPECT the solution for particulate matter or discoloration. Solution should be colorless or pale yellow and transparent. 6. WITHDRAW the appropriate volume of solution based on Epic order. WasteWILL be present in the vial. 7. Flush the patient???s intravenous catheter with sodium chloride 0.9% (normal saline) 10 mL flush. 8. Administer tenecteplase as an intravenous bolus OVER 10 SECONDS. 9. Flush the intravenous catheter with sodium chloride 0.9% (normal saline) 10 mL flush. Line Med Link Info Comment Peripheral IV 12/07/23 20 G Right Antecubital 12/07/231326 by Tal Johnston RN -- Timestamps Action Dose Route Other Information 12/07/231326 Given 25 mg intravenous Performed by: Tal Johnston RN Dual Signoff by: Roberto Kraus [facility] Scanned Package: [id number] sodium chloride 0.9% flush 10 mL [[id number]] Ordering Provider: Severino Mejía DO Status: Completed (Past End Date/Time) Ordered On: 12/07/231322 Starts/Ends: 12/07/231323 - 12/07/231326 Ordered Dose (Remaining/Total): 10 mL (0/1) Route: intra-catheter Frequency: Once Ordered Rate/Order Duration: -- / -- Admin Instructions: Flush IV catheter BEFORE and AFTER tenecteplase administration. Timestamps Action Dose Route Other Information 12/07/231326 Given 10 mL intra-catheter Performed by: Tal Johnston, MARAH Scanned Package: [id number] hydrALAZINE (APRESOLINE) injection 10 mg [[id number]] Ordering Provider: Severino Mejía DO Status: Discontinued (Past End Date/Time) Ordered On: 12/07/231649 Starts/Ends: 12/07/231649 - 12/07/231936 Ordered Dose (Remaining/Total): 10 mg (--/--) Route: intravenous Frequency: Every 15 min PRN Ordered Rate/Order Duration: -- / 2 Minutes Admin Instructions: Supersede other blood pressure/heart rate orders for the first 24 hours after IV thrombolytic administered. If no response to dose, contact provider for dosing change/agent change. (No admins scheduled or recorded for this medication) labetaloL (NORMODYNE,TRANDATE) injection 10 mg [[id number]] Ordering Provider: Severino Mejía DO Status: Discontinued (Past End Date/Time) Ordered On: 12/07/231649 Starts/Ends: 12/07/231649 - 12/07/231936 Ordered Dose (Remaining/Total): 10 mg (--/--) Route: intravenous Frequency: Every 15 min PRN Ordered Rate/Order Duration: 60 mL/hr / 2 Minutes Admin Instructions: Supersede other blood pressure/heart rate orders for the first 24 hours after IV thrombolytic administered. If no response to dose, contact provider for dosing change/agent change. (No admins scheduled or recorded for this medication) sodium chloride 0.9% flush 0.5-20 mL [[id number]] Ordering Provider: Gaby Doyle MD Status: Verified Ordered On: 12/07/231704 Start: 12/07/231744 Ordered Dose (Remaining/Total): 0.5-20 mL (--/--) Route: intra-catheter Frequency: Every 8 hours scheduled Ordered Rate/Order Duration: -- / -- Admin Instructions: Flush volume based on line type and size. Timestamps Action Dose Route Other Information 12/09/23 0514 Given 10 mL intra-catheter Performed by: Emily Bellamy RN Scanned Package: [id number] sodium chloride 0.9% flush 0.5-20 mL [[id number]] Ordering Provider: Gaby Doyle MD Status: Verified Ordered On: 12/07/231704 Start: 12/07/231702 Ordered Dose (Remaining/Total): 0.5-20 mL (--/--) Route: intra-catheter Frequency: As needed Ordered Rate/Order Duration: -- / -- Admin Instructions: Flush volume based on line type and size. Flush before and after each use. (No admins scheduled or recorded for this medication) Carrier Fluids for Secondary Infusion - 0.9% Sodium Chloride [[id number]] Ordering Provider: Gaby Doyle MD Status: Verified Ordered On: 12/07/231704 Start: 12/07/231702 Ordered Dose (Remaining/Total): 30 mL (--/--) Route: intravenous Frequency: As needed Ordered Rate/Order Duration: -- / -- Admin Instructions: 0-250 ml/hr to flush line after IV infusions when no maintenance IV ordered. Infuse 30mL at the same rate as the secondary infusion. Run as primary IV, not intended for KVO. (No admins scheduled or recorded for this medication) dextrose 5% and sodium chloride 0.9% infusion (premix) [[id number]] Ordering Provider: Gaby Doyle MD Status: Discontinued (Past End Date/Time) Ordered On: 12/07/231704 Starts/Ends: 12/07/231744 - 12/08/231809 Ordered Dose (Remaining/Total): 30 mL/hr (--/--) Route: intravenous Frequency: Continuous Ordered Rate/Order Duration: 30 mL/hr / -- Line Med Link Info Comment Peripheral IV 12/07/23 20 G Right Antecubital 12/07/23 173 by Ayleen Kathleen -- Timestamps Action Dose / Rate Route Other Information 12/07/231733 New Bag 30 mL/hr 30 mL/hr intravenous Performed by: Ayleen Kathleen Scanned Package: [id number] insulin lispro (HumaLOG, ADMELOG) 100 unit/mL injection 1-3 Units [[id number]] Ordering Provider: Gaby Doyle MD Status: Discontinued (Past End Date/Time) Ordered On: 12/07/231704 Starts/Ends: 12/07/231744 - 12/08/231616 Ordered Dose (Remaining/Total): 1-3 Units (--/--) Route: subcutaneous Frequency: Every 4 hours scheduled Ordered Rate/Order Duration: -- / -- Admin Instructions: Blood Sugar Low Dose - Surgical/Post-Op ICU 175 or less No Insulin 176 - 200 1 unit 201 - 250 2 units 251 - 299 3 units Greater than 299 Call MD for hyperglycemia management instructions Do NOT hold for NPO status. (No admins scheduled or recorded for this medication) dextrose oral liquid liquid 15 g [[id number]] Ordering Provider: Gaby Doyle MD Status: Verified Ordered On: 12/07/231704 Start: 12/07/231702 Ordered Dose (Remaining/Total): 15 g (--/--) Route: oral Frequency: Every 15 min PRN Ordered Rate/Order Duration: -- / -- Admin Instructions: If patient is alert and able to eat/drink, give 15 gm glucose or one juice (4 fluid ounces) NOT ORANGE JUICE. After treatment for hypoglycemia, recheck BG followed by treatment every 15 minutes until the BG is greater than 100 mg/dL. Then check BG 1 hour post-treatment. If BG isless than 100 mg/dL, repeat Q15 minute BG checks and treatment. Call MD for each episode of hypoglycemia. (No admins scheduled or recorded for this medication) dextrose (D10W) 10% bolus 250 mL [[id number]] Ordering Provider: Gaby Doyle MD Status: Verified Ordered On: 12/07/231704 Start: 12/07/231702 Ordered Dose (Remaining/Total): 250 mL (--/--) Route: intravenous Frequency: Every 15 min PRN Ordered Rate/Order Duration: 1,000 mL/hr / 15 Minutes Admin Instructions: After treatment for hypoglycemia, recheck BG followed by treatment every 15 minutes until the BG is greater than 100 mg/dL. Then check BG 1 hour post treatment. If BG is less fvid347 mg/dL, repeat Q15 minute BG checks and treatment. Call MD for each episode of hypoglycemia. (No admins scheduled or recorded for this medication) glucagon injection 1 mg [[id number]] Ordering Provider: Gaby Doyle MD Status: Verified Ordered On: 12/07/231704 Start: 12/07/231702 Ordered Dose (Remaining/Total): 1 mg (--/--) Route: intramuscular Frequency: Every 30 min PRN Ordered Rate/Order Duration: -- / -- Admin Instructions: After Glucagon is administered, position patient on side if possible to avoid aspiration. Obtain IV access. Follow glucagon treatment with glucose treatment or IV dextrose. After treatment for hypoglycemia, recheck BG followed by treatment every 15 minutes until the BG isgreater than 100 mg/dL. Then check BG 1 hour post treatment. If BG is less than 100 mg/dL, repeat Q15 minute BG checks and treatment. Call MD for each episode of hypoglycemia. Reconstitute 1 mg vial with 1 mL SWFI. Use immediately following reconstitution. (No admins scheduled or recorded for this medication) acetaminophen (TYLENOL) suppository 650 mg [[id number]] Ordering Provider: Gaby Doyle MD Status: Discontinued (Past End Date/Time) Ordered On: 12/07/231737 Starts/Ends: 12/07/231737 - 12/07/231930 Ordered Dose (Remaining/Total): 650 mg (--/--) Route: rectal Frequency: Every 6 hours PRN Ordered Rate/Order Duration: -- / -- (No admins scheduled or recorded for this medication) pantoprazole (PROTONIX) 40 mg in sodium chloride 0.9% 10 mL IV Syringe [[id number]] Ordering Provider: Gaby Doyle MD Status: Discontinued (Past End Date/Time) Ordered On: 12/07/231754 Starts/Ends: 12/07/231829 - 12/08/23 0851 Ordered Dose (Remaining/Total): 40 mg (--/--) Route: intravenous Frequency: Every 24 hours scheduled Ordered Rate/Order Duration: 300 mL/hr / 2 Minutes Admin Instructions: For IV administration, reconstitute 40 mg vial with 10 mL sodium chloride 0.9% for injection for a final concentration of 4 mg/mL Line Med Link Info Comment Peripheral IV 12/07/23 Left Antecubital 12/07/231801 by Dioni Lozano RN -- Timestamps Action Dose / Rate / Duration Route Other Information 12/08/23 0841 Given 40 mg 300 mL/hr 2 Minutes intravenous Performed by: Lyn Easley RN Scanned Package: [id number], 80618-478-86 fluticasone furoate-vilanteroL (BREO ELLIPTA) 100-25 mcg/dose inhaler 1 puff [[id number]] Ordering Provider: Gaby Doyle MD Status: Dispensed Ordered On: 12/07/231756 Start: 12/07/231829 Ordered Dose (Remaining/Total): 1 puff (--/--) Route: inhalation Frequency: Daily (manager corporate responsibility) Ordered Rate/Order Duration: -- / -- Timestamps Action Dose Route Other Information 12/09/23 1317 Given 1 puff inhalation Performed by: Sujata Wong CRTT Scanned Package: [id number] albuterol HFA (PROVENTIL HFA,VENTOLIN HFA,PROAIR HFA) 90 mcg/actuation inhaler 2 puff [[id number]] Ordering Provider: Gaby Doyle MD Status: Discontinued (Past End Date/Time) Ordered On: 12/07/231756 Starts/Ends: 12/07/231754 - 12/07/231758 Ordered Dose (Remaining/Total): 2 puff (--/--) Route: inhalation Frequency: Every 4 hours PRN Ordered Rate/Order Duration: -- / -- (No admins scheduled or recorded for this medication) albuterol HFA (PROVENTIL HFA,VENTOLIN HFA,PROAIR HFA) 90 mcg/actuation inhaler 2 puff [[id number]] Ordering Provider: Gaby Doyle MD Status: Verified Ordered On: 12/07/231758 Start: 12/07/231758 Ordered Dose (Remaining/Total): 2 puff (--/--) Route: inhalation Frequency: Every 4 hours PRN (manager corporate responsibility) Ordered Rate/Order Duration: -- / -- (No admins scheduled or recorded for this medication) acetaminophen (TYLENOL) tablet 650 mg [[id number]] Ordering Provider: Bernard Casillas MD Status: Dispensed Ordered On: 12/07/231930 Start: 12/07/231930 Ordered Dose (Remaining/Total): 650 mg (--/--) Route: oral Frequency: Every 4 hours PRN Ordered Rate/Order Duration: -- / -- Admin Instructions: Administer if patient can swallow tablets. Timestamps Action Dose Route Other Information 12/07/232022 Given 650 mg oral Performed by: Lara Weinberg RN Scanned Package: [id number], 60644-190-61 acetaminophen (TYLENOL) 32 mg/mL oral liquid 650 mg [[id number]] Ordering Provider: Bernard Casillas MD Status: Verified Ordered On: 12/07/231930 Start: 12/07/231930 Ordered Dose (Remaining/Total): 650 mg (--/--) Route: feeding tube Frequency: Every 4 hours PRN Ordered Rate/Order Duration: -- / -- Admin Instructions: Administer if patient receiving meds per tube. (No admins scheduled or recorded for this medication) acetaminophen (TYLENOL) suppository 650 mg [[id number]] Ordering Provider: Bernard Casillas MD Status: Verified Ordered On: 12/07/231930 Start: 12/07/231930 Ordered Dose (Remaining/Total): 650 mg (--/--) Route: rectal Frequency: Every 4 hours PRN Ordered Rate/Order Duration: -- / -- Admin Instructions: Administer if patient cannot tolerate enteral route. (No admins scheduled or recorded for this medication) rosuvastatin (CRESTOR) tablet 10 mg [[id number]] Ordering Provider: Bernard Casillas MD Status: Discontinued (Past End Date/Time) Ordered On: 12/07/231936 Starts/Ends: 12/07/232014 - 12/09/23 140 Ordered Dose (Remaining/Total): 10 mg (--/--) Route: oral Frequency: Daily Ordered Rate/Order Duration: -- / -- Timestamps Action Dose Route Other Information 12/09/23 0913 Given 10 mg oral Performed by: Sarah Lemus RN Scanned Package: [id number] hydrALAZINE (APRESOLINE) injection 10 mg [[id number]] Ordering Provider: Bernard Casillas MD Status: Discontinued (Past End Date/Time) Ordered On: 12/07/231936 Starts/Ends: 12/07/231936 - 12/08/23 161 Ordered Dose (Remaining/Total): 10 mg (--/--) Route: intravenous Frequency: Every 15 min PRN Ordered Rate/Order Duration: -- / 2 Minutes Admin Instructions: Supersede other blood pressure/heart rate orders for the first 24 hours after IV thrombolytic administered. If no response to dose, contact provider for dosing change/agent change. (No admins scheduled or recorded for this medication) labetaloL (NORMODYNE,TRANDATE) injection 10 mg [[id number]] Ordering Provider: Bernard Casillas MD Status: Discontinued (Past End Date/Time) Ordered On: 12/07/231936 Starts/Ends: 12/07/231936 - 12/07/231937 Ordered Dose (Remaining/Total): 10 mg (--/--) Route: intravenous Frequency: Every 15 min PRN Ordered Rate/Order Duration: 60 mL/hr / 2 Minutes Admin Instructions: Supersede other blood pressure/heart rate orders for the first 24 hours after IV thrombolytic administered. If no response to dose, contact provider for dosing change/agent change. (No admins scheduled or recorded for this medication) donepeziL (ARICEPT) tablet 10 mg [[id number]] Ordering Provider: Bernard Casillas MD Status: Dispensed Ordered On: 12/07/231941 Start: 12/07/23 2100 Ordered Dose (Remaining/Total): 10 mg (--/--) Route: oral Frequency: Nightly Ordered Rate/Order Duration: -- / -- Timestamps Action Dose Route Other Information 12/08/232099 Given 10 mg oral Performed by: Ever Ventura RN Scanned Package: [id number] tamsulosin (FLOMAX) extended release capsule 0.4 mg [[id number]] Ordering Provider: Bernard Casillas MD Status: Dispensed Ordered On: 12/07/231941 Start: 12/07/232099 Ordered Dose (Remaining/Total): 0.4 mg (--/--) Route: oral Frequency: Nightly Ordered Rate/Order Duration: -- / -- Admin Instructions: Do not crush, chew, cut, dissolve, open or otherwise manipulate tablet/capsule. Timestamps Action Dose Route Other Information 12/08/232099 Given 0.4 mg oral Performed by: Ever Ventura RN Scanned Package: [id number] levothyroxine (SYNTHROID) tablet 150 mcg [[id number]] Ordering Provider: Bernard Casillas MD Status: Dispensed Ordered On: 12/07/231941 Start: 12/08/23 06 Ordered Dose (Remaining/Total): 150 mcg (--/--) Route: oral Frequency: Daily (early AM) Ordered Rate/Order Duration: -- / -- Admin Instructions: Administer on an empty stomach, preferably 30 minutes before breakfast. Take 4 hours apart from antacids, iron and calcium products. Separate from tube feeds, if applicable. Timestamps Action Dose Route Other Information 12/09/23512 Given 150 mcg oral Performed by: Emily Bellamy RN Scanned Package: [id number] gabapentin (NEURONTIN) capsule 300 mg [[id number]] Ordering Provider: Bernard Casillas MD Status: Dispensed Ordered On: 12/07/231941 Start: 12/07/232099 Ordered Dose (Remaining/Total): 300 mg (--/--) Route: oral Frequency: 3 times daily Ordered Rate/Order Duration: -- / -- Timestamps Action Dose Route Other Information 12/09/23 0913 Given 300 mg oral Performed by: Sarah Lemus RN Scanned Package: [id number] ramelteon (ROZEREM) tablet 8 mg [[id number]] Ordering Provider: Bernard Casillas MD Status: Verified Ordered On: 12/07/231941 Start: 12/07/231941 Ordered Dose (Remaining/Total): 8 mg (--/--) Route: oral Frequency: Nightly PRN Ordered Rate/Order Duration: -- / -- (No admins scheduled or recorded for this medication) pantoprazole DR (PROTONIX) extended release tablet 20 mg [[id number]] Ordering Provider: Gaby Doyle MD Status: Dispensed Ordered On: 12/08/23 0851 Start: 12/09/23899 Ordered Dose (Remaining/Total): 20 mg (--/--) Route: oral Frequency: Daily Ordered Rate/Order Duration: -- / -- Admin Instructions: Do not crush, chew, cut, dissolve, open or otherwise manipulate tablet/capsule. Timestamps Action Dose Route Other Information 12/09/23912 Given 20 mg oral Performed by: Sarah Lemus RN Scanned Package: 57250-655-22 tiZANidine (ZANAFLEX) tablet 2 mg [[id number]] Ordering Provider: Dioni Orosco MD Status: Dispensed Ordered On: 12/08/23 1014 Start: 12/08/23 1014 Ordered Dose (Remaining/Total): 2 mg (--/--) Route: oral Frequency: 3 times daily PRN Ordered Rate/Order Duration: -- / -- Admin Instructions: Administer on an empty stomach Timestamps Action Dose Route Other Information 12/08/23 1019 Given 2 mg oral Performed by: Lyn Easley RN Scanned Package: 45492-207-73 aspirin chewable tablet 81 mg [[id number]] Ordering Provider: Gaby Doyle MD Status: Dispensed Ordered On: 12/08/23 1608 Start: 12/08/23 1645 Ordered Dose (Remaining/Total): 81 mg (--/--) Route: oral Frequency: Daily Ordered Rate/Order Duration: -- / -- Timestamps Action Dose Route Other Information 12/09/23 0913 Given 81 mg oral Performed by: Sarah Lemus RN Scanned Package: [id number] hydrALAZINE (APRESOLINE) injection 10 mg [[id number]] Ordering Provider: Gaby Doyle MD Status: Verified Ordered On: 12/08/23 1617 Start: 12/08/23 1616 Ordered Dose (Remaining/Total): 10 mg (--/--) Route: intravenous Frequency: Every 15 min PRN Ordered Rate/Order Duration: -- / 2 Minutes Admin Instructions: Supersede other blood pressure/heart rate orders for the first 24 hours after IV thrombolytic administered. If no response to dose, contact provider for dosing change/agent change. (No admins scheduled or recorded for this medication) enoxaparin (LOVENOX) syringe 40 mg [[id number]] Ordering Provider: Gaby Doyle MD Status: Verified Ordered On: 12/08/23 1808 Start: 12/09/23 2100 Ordered Dose (Remaining/Total): 40 mg (--/--) Route: subcutaneous Frequency: Daily (for enoxaparin) Ordered Rate/Order Duration: -- / -- (No admins scheduled or recorded for this medication) rosuvastatin (CRESTOR) tablet 40 mg [[id number]] Ordering Provider: Lianet Mckinney NP Status: Verified Ordered On: 12/09/23 1405 Start: 12/10/23 0900 Ordered Dose (Remaining/Total): 40 mg (--/--) Route: oral Frequency: Daily Ordered Rate/Order Duration: -- / -- (No admins scheduled or recorded for this medication) OT ASSESSMENT FLOWSHEET LAST DOCUMENTED (most recent) OT Evaluation - 12/09/23 12:00:57 Cognition Orientation Oriented X4 (person, place, time, situation) OT TREATMENT FLOWSHEET LAST DOCUMENTED (most recent) OT Treatment - 12/09/23 12:00:57 Cognition Orientation Oriented X4 (person, place, time, situation) OT Notes 12/08/2023 2:21 PM Progress Notes signed by Laquita Mukherjee OT OT ASSESSMENT FLOWSHEET LAST DOCUMENTED (most recent) PT Evaluation - 12/09/23 12:00:57 Cognition Orientation Oriented X4 (person, place, time, situation) PT TREATMENT (most recent) PT Treatment - 12/09/23 12:00:57 Cognition Orientation Oriented X4 (person, place, time, situation) PT Notes 12/08/2023 1:35 PM Progress Notes signed by Paresh Triana, PT REGISTERED MEDICAL ASSISTANT ASSESSMENT (most recent) REGISTERED MEDICAL ASSISTANT Evaluation - 12/09/23 12:00:57 Cognition Orientation Oriented X4 (person, place, time, situation) REGISTERED MEDICAL ASSISTANT SWALLOW STUDY (most recent) Clinical Swallow Study No documentation. REGISTERED MEDICAL ASSISTANT TREATMENT (most recent) REGISTERED MEDICAL ASSISTANT Treatment - 12/09/23 0803 Pain Assessment Pain Assessment 0-10 REGISTERED MEDICAL ASSISTANT Notes 12/08/2023 9:36 AM Progress Notes signed by Paresh Prieto SLP 12/09/2023 11:15 AM Progress Notes signed by Paresh Prieto SLP 12/09/2023 2:24 PM Progress Notes signed by Paresh Prieto SLP 12/09/2023 2:52 PM Progress Notes addendum by Paresh Prieto, REGISTERED MEDICAL ASSISTANT , OT Eval and Treat Last 72 Hours OT Evaluation Row Name 12/08/23 1035 Session Type Evaluation -RAMESH OT Recommendation Inpatient Rehab Facility - Patient at high risk for Falls;Injury due to decreased ability to care for self;Readmission;Injury due to reduced functional status;Injury due to balance deficits;Injury at home as patient has not returned to prior level of function;Prolonged dependence for self care tasks - Recommend Inpatient Rehab/Acute Rehab due to Ability to actively participate in intensive therapy 3hours/day, 5 days/week or 900 minutes per week;Highly motivated to participate in therapy;Not at baseline due to impaired ability to complete ADLs;Impaired ability to complete functional mobility;Likely to return to the community at discharge with support system in place;Patient and caregiver require specialized skilled training due to new level of function/diagnosis;Requires multiple therapy disciplines to address functional deficits - OT Frequency during current admission 3-5x/wk -RAMESH OT Evaluation Complete Yes -RAMESH User Souza (r) = Recorded By, (t) = Taken By, (c) = Cosigned By Initials Name Effective Dates Laquita Vargas, OLGA 05/23/22 - OT Treatment No documentation. OT Notes 12/08/2023 2:21 PM Progress Notes signed by Laquita Mukherjee, OT , OT Eval and Treat Last Documented OT ASSESSMENT FLOWSHEET LAST DOCUMENTED (most recent) OT Evaluation - 12/09/23 12:00:57 Cognition Orientation Oriented X4 (person, place, time, situation) OT TREATMENT FLOWSHEET LAST DOCUMENTED (most recent) OT Treatment - 12/09/23 12:00:57 Cognition Orientation Oriented X4 (person, place, time, situation) OT Notes 12/08/2023 2:21 PM Progress Notes signed by Laquita Mukherjee, OT , PT Eval and Treat Last 72 Hours PT Evaluation Row Name 12/08/23 1034 Chart Reviewed Yes -AA Session Type Evaluation -AA PT Functional Mobility Bed mobility: mod assist for supine to sit, required intermittent min assistfor steadying sitting balance due to gradual posterior lean. Transfers: min assist for sit to/from stand with MANAGER TECHNICAL, minimal knee block needed in static standing. Moderate assist for bed to chair with MANAGER TECHNICAL, max knee block needed due to complete buckle in midstance with RLE advancement attempt to chair, able to correct partially with increased time, assist needed for mild weight-shifting to promote LE advancement to chair, cues for hand placement. Ambulation: 2' bed to chair only due to safety concerns -AA Precautions Fall risk -AA How much difficulty does the patient have: Turning over in bed 2 -AA How much difficulty does the patient currently have: Sitting down and standing up from a chair witharms? 2 -AA How much difficulty does the patient have: Moving from lying on back to sitting on the side of the bed? 2 -AA How much difficulty does the patient have: Moving to and from a bed to a chair including wheelchair? 2 -AA How much help does the patient currently need: Walk in hospital room? 1 -AA How much help from another person does the patient currently need: Climbing 3-5 steps with a railing? 1 -AA Total 6 Click Score (range 6-24) 10 -AA PT Recommendation/Plan Inpatient Rehab Facility -AA Patient at high risk for Falls;Readmission;Injury due to decreased ability to care for self;Injury due to reduced functional status;Injury due to impaired cognition;Injury due to balance deficits;Injury at home as patient has not returned to prior level of function;Developing impaired skin integrity;Cognitive decline due to decreased social participation;Prolonged dependence for self care tasks;Improper use of DME -AA Recommend Inpatient Rehab/Acute Rehab due to Ability to actively participate in intensive therapy 3hours/day, 5 days/week or 900 minutes per week;Highly motivated to participate in therapy;Not at baseline due to impaired ability to complete ADLs;Impaired ability to complete functional mobility;Likely to return to the community at discharge with support system in place;Requires greater than 25% physical assistance with most mobility tasks;Requires greater than 25% physical assistance with most ADL tasks;Requires multiple therapy disciplines to address functional deficits;Patient and caregiverrequire specialized skilled training due to new level of function/diagnosis;Requires skilled therapy interventions to address neurological deficits -AA PT Frequency during current admission 3-5x/wk -AA PT Evaluation Complete Yes -AA User Souza (r) = Recorded By, (t) = Taken By, (c) = Cosigned By Initials Name Effective Dates AA Paresh Triana, PT 06/27/20 - PT TREATMENT (last 168 hours) PT Treatment No documentation. PT Notes 12/08/2023 1:35 PM Progress Notes signed by Paresh Triana, PT , PT Eval and Treat Last Documented OT ASSESSMENT FLOWSHEET LAST DOCUMENTED (most recent) PT Evaluation - 12/09/23 12:00:57 Cognition Orientation Oriented X4 (person, place, time, situation) PT TREATMENT (most recent) PT Treatment - 12/09/23 12:00:57 Cognition Orientation Oriented X4 (person, place, time, situation) PT Notes 12/08/2023 1:35 PM Progress Notes signed by Paresh Triana, PT , REGISTERED MEDICAL ASSISTANT Eval and Treat Last 72 Hours REGISTERED MEDICAL ASSISTANT Evaluation No documentation. REGISTERED MEDICAL ASSISTANT Treatment No documentation. Clinical Swallow Study No documentation. REGISTERED MEDICAL ASSISTANT Notes 12/08/2023 9:36 AM Progress Notes signed by Paresh Prieto SLP 12/09/2023 11:15 AM Progress Notes signed by Paresh Prieto SLP 12/09/2023 2:24 PM Progress Notes signed by Paresh Prieto SLP 12/09/2023 2:52 PM Progress Notes addendum by Paresh Prieto, REGISTERED MEDICAL ASSISTANT , REGISTERED MEDICAL ASSISTANT Eval and Treat Last Documented REGISTERED MEDICAL ASSISTANT ASSESSMENT (most recent) REGISTERED MEDICAL ASSISTANT Evaluation - 12/09/23 12:00:57 Cognition Orientation Oriented X4 (person, place, time, situation) REGISTERED MEDICAL ASSISTANT SWALLOW STUDY (most recent) Clinical Swallow Study No documentation. REGISTERED MEDICAL ASSISTANT TREATMENT (most recent) REGISTERED MEDICAL ASSISTANT Treatment - 12/09/23 0803 Pain Assessment Pain Assessment 0-10 REGISTERED MEDICAL ASSISTANT Notes 12/08/2023 9:36 AM Progress Notes signed by Paresh Prieto SLP 12/09/2023 11:15 AM Progress Notes signed by Paresh Prieto SLP 12/09/2023 2:24 PM Progress Notes signed by Paresh Prieto SLP 12/09/2023 2:52 PM Progress Notes addendum by Paresh Prieto SLP , Vitals Info Only Vital Signs 12/08 0700 0659 0700 1540 Most Recent Temp (??C) 36.3 - 36.8 36.4 - 37.1 37.1 (98.7) 1200 Pulse 52 - 93 54 - 65 60 1200 Resp 11 - 24 19 - 20 20 1200 SpO2 (%) 95 - 100 99 99 1200 BP 102/67 - 160/98 137/87 - 139/92 139/92 1200 MAP (mmHg) 74 - 132 99 - 103 103 1200 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 * Plan of Care - Emily Bellamy RN - 12/09/2023 8:52 AM RAG 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 Problem: Discharge Planning Goal: Understanding discharge needs will improve Outcome: Progressing Problem: Fall Risk Goal: Ability to state ways to decrease the risk of falls will improve Outcome: Progressing Goal: Will remain free from falls Outcome: Progressing Goal: Will remain free from injury from falls Outcome: Progressing Problem: Lack of Knowledge Goal: [...] health care needs will improve Outcome: Progressing Problem: Activity: Goal: Capacity to carry out activities will improve Outcome: Progressing Goal: Mobility will improve Outcome: Progressing Goal: Range of joint motion will improve Outcome: Progressing Problem: Lack of Knowledge: Goal: Verbalization of understanding the information provided will improve Outcome: Progressing Problem: Coping: Goal: Ability to verbalize positive feelings about self will improve Outcome: Progressing Goal: Ability to identify appropriate support needs will improve Outcome: Progressing Goal: Ability to identify strategies to decrease anxiety will improve Outcome: Progressing Problem: Health Behavior: Goal: Ability to manage health-related needs will improve Outcome: Progressing Problem: Nutritional: Goal: Dietary intake will improve Outcome: Progressing Problem: Physical Regulation: Goal: Ability to maintain clinical measurements within normal limits will improve Outcome: Progressing Goal: Complications related to the disease process, condition or treatment will be avoided or minimized Outcome: Progressing Problem: Role Relationship: Goal: Ability to communicate needs accurately will improve Outcome: Progressing Goal: Ability to reevaluate and adapt role responsibilities will improve Outcome: Progressing Problem: Safety: Goal: Ability to remain free from injury will improve Outcome: Progressing Problem: Self-Care: Goal: Ability to participate in self-care as condition permits will improve Outcome: Progressing Goal: Verbalization of feelings and concerns over difficulty with self-care will improve Outcome: Progressing Problem: Skin Integrity: Goal: Risk for impaired skin integrity will decrease Outcome: Progressing Problem: Tissue Perfusion: Goal: Neurologic status will improve Outcome: Progressing Goal: Risk of venous thrombosis will decrease Outcome: Progressing Goals: Clinical Goals for the Shift: stable vitals neuro assessments Summary: pt's arrived from ICU, Aox4, NIH 6, on neuro protocol, safety maintained, call light within reach 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 * Plan of Care - Hilaria Dawson RN - 12/09/2023 7:28 AM CST CM gave written transfer report to Indira and JIMENA Mondragon for 7th floor via Teams. Call with any questions or concerns. Thank you Anjali Dawson RN, BSN, CCRN [facility] [phone] 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 * Significant Event - Bernard Casillas MD - 12/09/2023 3:21 AM CST ICU to Floor Transfer Plan to move patient to the telemetry floor. Sign out given to PRISCILA Ap Conklin. Please see most recent daily progress note for detailed HPI, hospital course, and significant events. Do not hesitate to reach out via phone if any further questions/concerns. Bernard Casillas MD Phone number to be reached at: [phone] ([facility]) 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 * Initial Assessments - Hilaria Dawson RN - 12/08/2023 3:00 PM RAG 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 CM Initial Assessment Interview Note Information Obtained From: Patient (12/08/231343) Admission Source: Ed from home Impression: CVA s/p TNK Plan Includes: Medical management, Supportive care, and Discharge planning Primary Source of Transportation: Does the patient need discharge transport arranged?: Yes Has discharge transport been arranged?: Yes Details of Transportation: spouse or son at discharge D/C Transport Anticipated Date: 12/11/23 (12/08/23 1344) Health Insurance Coverage: [employer] MEDICARE/[employer] CHOICE MEDICARE PPO Prescription Coverage: Yes Pharmacy: [facility] [address] [facility] [address] Primary Care Provider: Wolfgang Serrano MD Prior to Admission: Functional Status: Independent with ADLs Primary Caregiver: Self Support System: Spouse/Significant Other, Children Home Care Services: No Outpatient Services: No Durable Medical Equipment: Rollator, Walker (wheeled), Cane (single prong), Tub bench Living Arrangements: Spouse/significant other Type of Residence: Private residence Steps in home?: Yes, Inside home Number of steps inside: 17 steps (downstaris bedroom) (12/08/23 1344) SDOH: Transportation: In the past 12 months, has lack of transportation kept you from medical appointments or from getting medications?: No In the past 12 months, has lack of transportation kept you from meetings, work, or from getting things needed for daily living?: No (02/28/24 1347) Financial Resource: How hard is it for you to pay for the very basics like food, housing, medical care, and heating?: Not hard at all (12/08/231346) Housing: In the last 12 months, was there a time when you were not able to pay the mortgage or rent on time?: No In the last 12 months, how many places have you lived?: 1 In the last 12 months, was there a time when you did not have a steady place to sleep or slept in ashelter (including now)?: No (12/08/231346) Utilities: No, (12/08/231346) Social Connections: In a typical week, how many times do you talk on the phone with family, friends, or neighbors?: More than three times a week How often do you get together with friends or relatives?: More than three times a week How often do you attend jehovah's witness or caodaism services?: More than 4 times per year Do you belong to any clubs or organizations such as jehovah's witness groups, unions, fraternal or athletic groups, or school groups?: No How often do you attend meetings of the clubs or organizations you belong to?: Never Are you , , , , never , or living with a partner?: (12/08/231346) Food Insecurity: Within the past 12 months, you worried that your food would run out before you got the money to buymore.: Never true Within the past 12 months, the food you bought just didn't last and you didn't have money to get more.: Never true (12/08/231346) Potential discharge needs include: Home Health: None (12/08/231343) Behavioral Health Services: Behavioral Health Services: No (12/08/231343) Patient expects to be Discharged to: Acute Rehab, (12/08/231343) Additional Information: CM met with patient at bedside to complete initial discharge planning and demographics verified via face-sheet. SDOH completed and pt denied any issues. 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 Plan to discharge home pending PT/OT recommendations. senior hr business partner is spouse and transportation to be provided by same at d/c. F/u PCP appt to be made by patient; pt/family agreeable to this. Advance directive assistance requested; SW consulted. CM will continue to follow for discharge needs. Patient's Identified Problem/Goal Problem: Ensure acute medical needs are met [...] Collaboration with patient, MD, direct care nurse, Wood Room Supervisor, and other members of the health care team to assure needed interventions completed. 2. Return patient to optimal level of self-care post discharge. 3. Blocker Hand will follow for Discharge Planning - interventions as needed 4. Anticipated level of care at discharge 5. Planned Discharge Disposition Anjali Dawson RN-BSN, CCRN [facility] [phone] 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 * Plan of Care - Doris Bran RN - 12/08/2023 2:19 AM CST Problem: Discharge Planning Goal: Understanding discharge needs will improve 12/08/2023217 by Doris Bran RN Outcome: Ongoing 12/08/2023212 by Doris Bran RN Outcome: Ongoing Problem: Fall Risk Goal: Ability to state ways to decrease the risk of falls will improve 12/08/2023217 by Doris Bran RN Outcome: Ongoing 12/08/2023212 by Doris Bran RN Outcome: Progressing Goal: Will remain free from falls 12/08/2023217 by Doris Bran RN Outcome: Ongoing 12/08/2023212 by Doris Bran RN Outcome: Progressing Goal: Will remain free from injury from falls 12/08/2023217 by Doris Bran RN Outcome: Ongoing 12/08/2023212 by Doris Bran RN Outcome: Progressing Problem: Lack of Knowledge Goal: Ability to develop a pain control plan will improve 12/08/2023217 by Doris Bran RN Outcome: Ongoing 12/08/2023212 by Doris Bran RN Outcome: Progressing Problem: Medication Goal: Satisfaction with pain management medication regimen will improve 12/08/2023217 by Doris Bran RN Outcome: Ongoing 12/08/2023212 by Doris Bran RN Outcome: Progressing Problem: Sensory Goal: Ability to identify factors that increase pain levels will improve while working to decrease the patient's pain levels 12/08/2023217 by Doris Bran RN Outcome: Ongoing 12/08/2023212 by Doris Bran RN Outcome: Progressing Problem: Coping Goal: Ability to cope will improve 12/08/2023217 by Doris Bran RN Outcome: Ongoing 12/08/2023212 by Doris Bran RN Outcome: Progressing Problem: Health Behavior Goal: Identification of resources available to assist in meeting health care needs will improve 12/08/2023217 by Doris Bran RN Outcome: Ongoing 12/08/2023212 by Doris Bran RN Outcome: Progressing Goals: Clinical Goals for the Shift: VSS, neuro Summary: 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 documented in this encounter Plan of Treatment Upcoming Encounters Date Type Department Care Team (Latest Contact Info) Description 10/23/2024 10:00 AM RAG 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 Hospital Encounter [facility] Operating Room [address] [place] [id number] [place] [address] [address] [address] 10/23/2024 10:00 AM RAG 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 - 10/23/2024 1:00 PM RAG 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 Surgery [facility] Operating Room [address] [place] [id number] [place] [address] [place] [address] ARTHROPLASTY TOTAL KNEE LEFT Scheduled Procedures Name Priority Associated Diagnoses Date/Ti me ARTHROPLASTY TOTAL KNEE left knee osteoarthritis 10/23/2024 10:00 AM RAG 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 ESOPHAGOGASTRODUODENOSCOPY Dysphagia, unspecified type documented as of this encounter Procedures Procedure Name Priority Date/Time Associated Diagnosis Comments GUAIAC OCCULT BLOOD, FECAL, NOT FOR NEOPLASM SCREENING STAT 12/14/2023 6:00 PM RAG 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 COVID-19 CORONAVIRUS RNA Routine 12/14/2023 2:45 PM RAG 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 EGFR Routine 12/14/2023 4:27 AM RAG 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 DIFFERENTIAL AUTO Routine 12/14/2023 4:2 7 AM RAG 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 CBC WITH AUTO DIFFERENTIAL Routine 12/14/2023 4:27 AM RAG 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 BASIC METABOLIC PANEL Routine 12/14/2023 4:27 AM RAG 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 EGFR Routine 12/13/2023 2:52 AM RAG 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 DIFFERENTIAL AUTO Routine 12/13/2023 2:5 2 AM RAG 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 CBC WITH AUTO DIFFERENTIAL Routine 12/13/2023 2:52 AM RAG 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 BASIC METABOLIC PANEL Routine 12/13/2023 2:52 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 HEAD WO CONTRAST IP Routine 12/12/2023 1 1:24 PM RAG 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 EGFR Routine 12/12/2023 4:20 AM RAG 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 DIFFERENTIAL AUTO Routine 12/12/2023 4:2 0 AM RAG 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 CBC WITH AUTO DIFFERENTIAL Routine 12/12/2023 4:20 AM RAG 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 PHOSPHORUS Routine 12/12/2023 4:20 AM RAG 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 MAGNESIUM Routine 12/12/2023 4:20 AM RAG 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 BASIC METABOLIC PANEL Routine 12/12/2023 4:20 AM RAG 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 EGFR Routine 12/11/2023 5:47 AM RAG 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 DIFFERENTIAL AUTO Routine 12/11/2023 5:4 7 AM RAG 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 CBC WITH AUTO DIFFERENTIAL Routine 12/11/2023 5:47 AM RAG 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 PROTIME-INR Routine 12/11/2023 5:47 AM RAG 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 PHOSPHORUS Routine 12/11/2023 5:47 AM RAG 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 MAGNESIUM Routine 12/11/2023 5:47 AM RAG 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 BASIC METABOLIC PANEL Routine 12/11/2023 5:47 AM RAG 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 EGFR Routine 12/10/2023 2:54 AM RAG 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 DIFFERENTIAL AUTO Routine 12/10/2023 2:5 4 AM RAG 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 CBC WITH AUTO DIFFERENTIAL Routine 12/10/2023 2:54 AM RAG 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 PHOSPHORUS Routine 12/10/2023 2:54 AM RAG 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 MAGNESIUM Routine 12/10/2023 2:54 AM RAG 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 BASIC METABOLIC PANEL Routine 12/10/2023 2:54 AM RAG 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 EGFR Routine 12/09/2023 6:19 AM RAG 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 DIFFERENTIAL AUTO Routine 12/09/2023 6:1 9 AM RAG 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 CBC WITH AUTO DIFFERENTIAL Routine 12/09/2023 6:19 AM RAG 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 PHOSPHORUS Routine 12/09/2023 6:19 AM RAG 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 MAGNESIUM Routine 12/09/2023 6:19 AM RAG 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 BASIC METABOLIC PANEL Routine 12/09/2023 6:19 AM RAG 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 POCT GLUCOSE DEVICE Routine 12/08/2023 4 :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 HEAD WO CONTRAST Critical/Life-T hreatening 12/08/2023 3:57 PM RAG 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 MRI BRAIN WO CONTRAST ED Urgent/IP Urgent 12/08/2023 1: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 HEAD WO CONTRAST ED Urgent/IP Urgent 12/08/2023 1:34 PM RAG 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 TRANSTHORACIC ECHO (TTE) COMPLETE W DOPPLER/CF WO CONTRAST Routine 12/08/2023 1:30 PM RAG 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 POCT GLUCOSE DEVICE Routine 12/08/2023 7 :26 AM RAG 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 POCT GLUCOSE DEVICE Routine 12/08/2023 4 :43 AM RAG 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 LIPID PANEL Routine 12/08/2023 4:10 AM RAG 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 POCT GLUCOSE DEVICE Routine 12/08/2023 1 2:04 AM RAG 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 CRITICAL CARE Routine 12/07/2023 10:02 PM RAG 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 Acute CVA (cerebrovascular accident) (HCC) CALCIUM,IONIZED, WHOLE BLOOD Routine 12/07/2023 8:45 PM RAG 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 EGFR Routine 12/07/2023 8:45 PM RAG 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 DIFFERENTIAL AUTO Routine 12/07/2023 8:4 5 PM RAG 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 CBC WITH AUTO DIFFERENTIAL Routine 12/07/2023 8:45 PM RAG 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 FIBRINOGEN Timed 12/07/2023 8:45 PM RAG 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 PHOSPHORUS Routine 12/07/2023 8:45 PM RAG 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 MAGNESIUM Routine 12/07/2023 8:45 PM RAG 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 HEMOGLOBIN A1C Routine 12/07/2023 8:45 PM RAG 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 LIPID PANEL Routine 12/07/2023 8:45 PM RAG 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 COMPREHENSIVE METABOLIC PANEL Routine 12/07/2023 8:45 PM RAG 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 POCT GLUCOSE DEVICE Routine 12/07/2023 7 :57 PM RAG 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 TROPONIN T HIGH-SENSITIVITY 6-HOUR Timed 12/07/2023 7:34 PM RAG 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 TROPONIN T HIGH-SENSITIVITY 4-HR Timed 12/07/2023 5:58 PM RAG 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 INFECTION PREVENTION MRSA ONLY (STAPHYLOCOCCUS AUREUS) PCR Routine 12/07/2023 5:58 PM RAG 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 ECG 12-LEAD STAT 12/07/2023 5:20 PM RAG 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 POCT GLUCOSE DEVICE Routine 12/07/2023 4 :52 PM RAG 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 URINALYSIS AND REFLEX TO MICROSCOPIC AND CULTURE STAT 12/07/2023 3:22 PM RAG 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 URINALYSIS, MICROSCOPIC ONLY STAT 12/07/2023 3:22 PM RAG 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 TROPONIN T HIGH-SENSITIVITY 2-HOUR Timed 12/07/2023 2:50 PM RAG 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 TROPONIN T HIGH-SENSITIVITY SERIES (BASELINE, 2HR, 4HR, 6HR) STAT 12/07/2023 1:30 PM RAG PRODUCTION WORKER EGFR STAT 12/07/2023 1:30 PM RAG PRODUCTION WORKER DIFFERENTIAL AUTO STAT 12/07/2023 1:3 0 PM RAG PRODUCTION WORKER CBC WITH AUTO DIFFERENTIAL STAT 12/07/2023 1:30 PM RAG PRODUCTION WORKER APTT STAT 12/07/2023 1:30 PM RAG PRODUCTION WORKER PROTIME-INR STAT 12/07/2023 1:30 PM RAG PRODUCTION WORKER COMPREHENSIVE METABOLIC PANEL STAT 12/07/2023 1:30 PM RAG PRODUCTION WORKER ECG 12-LEAD STAT 12/07/2023 1:21 PM RAG PRODUCTION WORKER CTA/CTP RAPID STROKE Critical/Life-T hreatening 12/07/2023 1:16 PM RAG PRODUCTION WORKER MT CRITICAL CARE ILL/INJURED PATIENT INIT 30-74 MIN Routine 12/07/2023 1:02 PM RAG PRODUCTION WORKER documented in this encounter Results * Guaiac occult blood, fecal, non-neoplasm (12/14/2023 6:00 PM RAG PRODUCTION WORKER) Guaiac occult blood, fecal Negative Negative Stool 12/14/2023 6:00 PM RAG PRODUCTION WORKER 12/15/2023 10:26 AM RAG PRODUCTION WORKER Zheng Veras EDUCATIONAL DIAGNOSTICIAN LAB BODY FLUIDS AND STOOL S ORDERABLES Final Result [facility] [id number] Department [place] [address] * COVID-19 Coronavirus RNA Nasopharyngeal (12/14/2023 2:45 PM RAG PRODUCTION WORKER) COVID-19 RNA Negative Negative [facility] Nasopharyngeal 12/14/2023 2: 45 PM RAG PRODUCTION WORKER 12/14/2023 4:17 PM RAG PRODUCTION WORKER Narrative [facility] - 12/14/2023 5:02 PM RAG PRODUCTION WORKER Is the patient experiencing any symptoms consistent with COVID (eg. Fever, cough, shortness of breath)?->No What is the reason for testing?->Screening for semi-private room placement ??Interpretive data: Synonyms for this test include: PCR and NAAT . ??This test is performed using the Novopyxis Xpert Xpress plus assay. This is a real-time RT-PCR test intended for the qualitative detection of nucleic acid from the SARS-CoV-2. This assay has been reviewed by the FDA for Emergency Use Authorization (EUA). The performance characteristics have been verified by the performing laboratory. Results must be considered in the clinical context and a negative result does not rule out infection. Interpretive data last revised March 11, 2022. Carlos Claire MD LAB MICROBIOLOGY - G ENERAL ORDERABLES Final Result [facility] FISHER [id number] Department [place] [address] * eGFR (12/14/2023 4:27 AM RAG PRODUCTION WORKER) eGFR 67 mL/min/1. 73 m2 [facility] Comment: Interpretive Data Reference Interval Normal ?>/= [...] interpretive data was last reviewed 2021. Blood 12/14/2023 4:27 AM RAG PRODUCTION WORKER 12/14/2023 4:48 AM RAG PRODUCTION WORKER Maxi Carrion MD LAB BLOOD ORDERABLES Fin al Result [facility] [id number] Department [place] [address] * (ABNORMAL) Differential, auto (12/14/2023 4:27 AM RAG PRODUCTION WORKER) Neutrophil abs 4.5 1.5 - 6.5 K/cumm [facility] Imm gran abs 0.0 0.0 - 0.1 K/cumm [facility] Lymphocyte abs 2.4 0.8 - 3.3 K/cumm [facility] Monocyte abs 1.0(H) 0.2 - 0.8 K/cumm [facility] Eosinophil abs 0.4 0.0 - 0.5 K/cumm [facility] Basophil abs 0.1 0.0 - 0.1 K/cumm [facility] Neutrophil pct 53.9 % [facility] Comment: Interpretive Data Percent cell count reference ranges are not reported, since discordance with absolute values may lead to misinterpretation of CBC data. Current Interpretive Data was last revised on 2018. Imm gran pct 0.5 % [facility] Comment: Interpretive Data Percent cell count reference ranges are not reported, since discordance with absolute values may lead to misinterpretation of CBC data. Current Interpretive Data was last revised on 2018. Lymphocyte pct 28.5 % [facility] Comment: Interpretive Data Percent cell count reference ranges are not reported, since discordance with absolute values may lead to misinterpretation of CBC data. Current Interpretive Data was last revised on 2018. Monocyte pct 11.9 % [facility] Comment: Interpretive Data Percent cell count reference ranges are not reported, since discordance with absolute values may lead to misinterpretation of CBC data. Current Interpretive Data was last revised on 2018. Eosinophil pct 4.2 % [facility] Comment: Interpretive Data Percent cell count reference ranges are not reported, since discordance with absolute values may lead to misinterpretation of CBC data. Current Interpretive Data was last revised on 2018. Basophil pct 1.0 % [facility] Comment: Interpretive Data Percent cell count reference ranges are not reported, since discordance with absolute values may lead to misinterpretation of CBC data. Current Interpretive Data was last revised on 2018. Blood 12/14/2023 4:27 AM RAG PRODUCTION WORKER 12/14/2023 4:48 AM RAG PRODUCTION WORKER Maxi Carrion MD LAB BLOOD ORDERABLES Fin al Result [facility] [id number] Department [place] [address] * Basic metabolic panel (12/14/2023 4:27 AM RAG PRODUCTION WORKER) Sodium 138 135 - 145 mmol/L [facility] Potassium, pl 4.2 3.3 - 4.9 mmol/L [facility] Chloride 104 97 - 110 mmol/L [facility] CO2 24 22 - 32 mmol/L [facility] Anion gap 10 2 - 15 mmol/L [facility] BUN 23 6 - 25 mg/dL [facility] Creatinine 1.12 0.80 - 1.30 mg/dL [facility] Glucose 118 70 - 199 mg/dL [facility] Comment: Interpretive Data Fasting glucose >/= 126 [...] Calcium 9.0 8.5 - 10.3 mg/dL [facility] Blood 12/14/2023 4:27 AM RAG PRODUCTION WORKER 12/14/2023 4:48 AM RAG PRODUCTION WORKER us Bernard Casillas MD LAB BLOOD ORDERABLES Final R esult Performing Organization Address [facility] de Phone Number [facility] FISHER [address] Department [place] [address] * (ABNORMAL) CBC with auto differential (12/14/2023 4:27 AM RAG PRODUCTION WORKER) WBC 8.3 3.8 - 9.9 K/cumm [facility] Hgb 13.6 13.0 - 17.5 g/dL [facility] Hct 41.8 38.9 - 50.3 % [facility] Plt 252 150 - 400 K/cumm [facility] MPV 10.2 9.1 - 12.3 fL [facility] RBC 4.27(L) 4.30 - 5.80 M/cumm [facility] MCV 97.9(H) 81.3 - 96.4 fL [facility] MCH 31.9 27.1 - 33.3 pg [facility] MCHC 32.5 32.3 - 35.7 g/dL [facility] RDW CV 13.2 11.1 - 14.9 % [facility] RDW SD 46.9 35.7 - 48.1 fL [facility] NRBC abs 0.00 0.00 - 0.01 K/cumm [facility] Blood 12/14/2023 4:27 AM RAG PRODUCTION WORKER 12/14/2023 4:48 AM RAG PRODUCTION WORKER Bernard Casillas MD LAB BLOOD ORDERABLES Final R esult Performing Organization Address [facility] de Phone Number [facility] FISHER [id number] Department of [employer] [place], [place] [id number] * eGFR (12/13/2023 2:52 AM RAG PRODUCTION WORKER) Pathologist [facility] [place] eGFR 60 mL/min/1. 73 m2 [facility] Comment: Interpretive Data Reference Interval Normal ?>/= [...] interpretive data was last reviewed 2021. Blood 12/13/2023 2:52 AM RAG PRODUCTION WORKER 12/13/2023 4:09 AM RAG PRODUCTION WORKER us Maxi Carrion MD LAB BLOOD ORDERABLES Fin al Result [facility] [id number] Department [place] [address] * (ABNORMAL) Differential, auto (12/13/2023 2:52 AM RAG PRODUCTION WORKER) Neutrophil abs 5.2 1.5 - 6.5 K/cumm [facility] Imm gran abs 0.1 0.0 - 0.1 K/cumm [facility] Lymphocyte abs 2.7 0.8 - 3.3 K/cumm [facility] Monocyte abs 1.0(H) 0.2 - 0.8 K/cumm [facility] Eosinophil abs 0.3 0.0 - 0.5 K/cumm [facility] Basophil abs 0.1 0.0 - 0.1 K/cumm [facility] Neutrophil pct 55.7 % [facility] Comment: Interpretive Data Percent cell count reference ranges are not reported, since discordance with absolute values may lead to misinterpretation of CBC data. Current Interpretive Data was last revised on 2018. Imm gran pct 0.5 % [facility] Comment: Interpretive Data Percent cell count reference ranges are not reported, since discordance with absolute values may lead to misinterpretation of CBC data. Current Interpretive Data was last revised on 2018. Lymphocyte pct 28.8 % [facility] Comment: Interpretive Data Percent cell count reference ranges are not reported, since discordance with absolute values may lead to misinterpretation of CBC data. Current Interpretive Data was last revised on 2018. Monocyte pct 10.6 % [facility] Comment: Interpretive Data Percent cell count reference ranges are not reported, since discordance with absolute values may lead to misinterpretation of CBC data. Current Interpretive Data was last revised on 2018. Eosinophil pct 3.6 % [facility] Comment: Interpretive Data Percent [...] Data was last revised on 2018. Blood 12/13/2023 2:52 AM RAG PRODUCTION WORKER 12/13/2023 4:09 AM RAG PRODUCTION WORKER us Maxi Carrion MD LAB BLOOD ORDERABLES Fin al Result [facility] [id number] Department of Laboratories [place], [place] [id number] * Basic metabolic panel (12/13/2023 2:52 AM RAG PRODUCTION WORKER) Sodium 138 135 - 145 mmol/L [facility] Potassium, pl 4.4 3.3 - 4.9 mmol/L [facility] Chloride 103 97 - 110 mmol/L [facility] CO2 24 22 - 32 mmol/L [facility] Anion gap 11 2 - 15 mmol/L [facility] BUN 24 6 - 25 mg/dL [facility] Creatinine 1.22 0.80 - 1.30 mg/dL [facility] Glucose 106 70 - 199 mg/dL [facility] Comment: Interpretive Data Fasting glucose >/= 126 [...] interpretive data was last revised 2022. Calcium 9.2 8.5 - 10.3 mg/dL [facility] Blood 12/13/2023 2:52 AM RAG PRODUCTION WORKER 12/13/2023 4:09 AM RAG PRODUCTION WORKER us Bernard Casillas MD LAB BLOOD ORDERABLES Final R esult [facility] [id number] Department [place] [address] * (ABNORMAL) CBC with auto differential (12/13/2023 2:52 AM RAG PRODUCTION WORKER) WBC 9.4 3.8 - 9.9 K/cumm [facility] Hgb 13.8 13.0 - 17.5 g/dL [facility] Hct 41.7 38.9 - 50.3 % [facility] Plt 255 150 - 400 K/cumm [facility] MPV 10.8 9.1 - 12.3 fL [facility] RBC 4.29(L) 4.30 - 5.80 M/cumm [facility] MCV 97.2(H) 81.3 - 96.4 fL [facility] MCH 32.2 27.1 - 33.3 pg [facility] MCHC 33.1 32.3 - 35.7 g/dL [facility] RDW CV 13.0 11.1 - 14.9 % [facility] RDW SD 46.3 35.7 - 48.1 fL [facility] NRBC abs 0.00 0.00 - 0.01 K/cumm [facility] Blood 12/13/2023 2:52 AM RAG PRODUCTION WORKER 12/13/2023 4:09 AM RAG PRODUCTION WORKER us Bernard Casillas MD LAB [place]LOOD [place] [address] [address] Department [place] [address] * CT Head WO Contrast (12/12/2023 11:24 PM RAG PRODUCTION WORKER) Anatomical Region Laterality Modality Head and Neck N/A Computed Tomogra phy 12/13/2023 6:22 AM RAG PRODUCTION WORKER Impressions 12/13/2023 6:22 AM RAG PRODUCTION WORKER 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 ??No acute findings. ??Atrophy and small vessel disease. Electronically signed by: Beka Draper M.D. Narrative 12/13/2023 6:22 AM RAG PRODUCTION WORKER EXAMINATION: CT head without contrast HISTORY: 78-year-old man stroke follow-up. TECHNIQUE: Noncontrast CT of the brain was performed with images acquired from skull base to vertex. COMPARISON: Compared to study of 12/08/2023, and the MRI of 12/08/2023,. FINDINGS: Clinical Sciences Professor radiograph normal. ??Transaxial images demonstrate stable involutional changes with small vessel disease. ??There is no midline shift mass effect or hemorrhage. ??The area of infarction involving the lentiform nucleus and posterior limb internal capsule right side is more clearly visualized on the previous CT corresponding to the MRI recently. ??Basal ganglia calcifications. ??No new areas of infarction are seen. ??No hemorrhagic transformation is seen. Craniovertebral junction is normal. ??Pituitary Fosters normal. ??The bone windows demonstrate atherosclerosis. ??Minimal mucosal thickening anterior ethmoidal air cells left side Procedure Note Beka Draper MD - 12/13/2023 EXAMINATION: CT head without contrast HISTORY: 78-year-old man stroke follow-up. TECHNIQUE: Noncontrast CT of the brain was performed with images acquired from skull base to vertex. COMPARISON: Compared to study of 12/08/2023, and the MRI of 12/08/2023,. FINDINGS: Clinical Sciences Professor radiograph normal. Transaxial images demonstrate stable involutional changes with small vessel disease. There is no midline shift mass effect or hemorrhage. The area of infarction involving the lentiform nucleus and posterior limb internal capsule right side is more clearly visualized on the previous CT corresponding to the MRI recently. Basal ganglia calcifications. No new areas of infarction are seen. No hemorrhagic transformation is seen. Craniovertebral junction is normal. Pituitary Fosters normal. The bone windows demonstrate atherosclerosis. 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 No acute findings. Atrophy and small vessel disease. Electronically signed by: Beka Draper M.D. Zheng Veras NP IMG CT PROCEDURES Final R esult * eGFR (12/12/2023 4:20 AM RAG PRODUCTION WORKER) eGFR 65 mL/min/1. 73 m2 [facility] Comment: Interpretive Data Reference Interval Normal ?>/= [...] interpretive data was last reviewed 2021. Blood 12/12/2023 4:20 AM RAG PRODUCTION WORKER 12/12/2023 4:34 AM RAG PRODUCTION WORKER us Maxi Carrion MD LAB BLOOD ORDERABLES Fin al Result [facility] [id number] Department [place] [address] * (ABNORMAL) Differential, auto (12/12/2023 4:20 AM RAG PRODUCTION WORKER) Neutrophil abs 4.7 1.5 - 6.5 K/cumm [facility] Imm gran abs 0.0 0.0 - 0.1 K/cumm [facility] Lymphocyte abs 2.5 0.8 - 3.3 K/cumm [facility] Monocyte abs 0.9(H) 0.2 - 0.8 K/cumm [facility] Eosinophil abs 0.3 0.0 - 0.5 K/cumm [facility] Basophil abs 0.1 0.0 - 0.1 K/cumm [facility] Neutrophil pct 55.0 % [facility] Comment: Interpretive Data Percent cell count reference ranges are not reported, since discordance with absolute values may lead to misinterpretation of CBC data. Current Interpretive Data was last revised on 2018. Imm gran pct 0.5 % [facility] Comment: Interpretive Data Percent cell count reference ranges are not reported, since discordance with absolute values may lead to misinterpretation of CBC data. Current Interpretive Data was last revised on 2018. Lymphocyte pct 29.3 % [facility] Comment: Interpretive Data Percent cell count reference ranges are not reported, since discordance with absolute values may lead to misinterpretation of CBC data. Current Interpretive Data was last revised on 2018. Monocyte pct 10.6 % [facility] Comment: Interpretive Data Percent cell count reference ranges are not reported, since discordance with absolute values may lead to misinterpretation of CBC data. Current Interpretive Data was last revised on 2018. Eosinophil pct 3.9 % [facility] Comment: Interpretive Data Percent cell count reference ranges are not reported, since discordance with absolute values may lead to misinterpretation of CBC data. Current Interpretive Data was last revised on 2018. Basophil pct 0.7 % [facility] Comment: Interpretive Data Percent cell count reference ranges are not reported, since discordance with absolute values may lead to misinterpretation of CBC data. Current Interpretive Data was last revised on 2018. Blood 12/12/2023 4:20 AM RAG PRODUCTION WORKER 12/12/2023 4:33 AM RAG PRODUCTION WORKER Maxi Carrion MD LAB BLOOD ORDERABLES Fin al Result Performing Organization Address [facility] Co de Phone Number [facility]VIN [address] Department [place] [address] * Phosphorus (12/12/2023 4:20 AM RAG PRODUCTION WORKER) Phosphorus, pl 3.2 2.3 - 4.5 mg/dL [facility] Blood 12/12/2023 4:20 AM RAG PRODUCTION WORKER 12/12/2023 4:34 AM RAG PRODUCTION WORKER Maxi Carrion MD LAB BLOOD ORDERABLES Fin al Result Performing Organization Address [facility] Co de Phone Number [facility] [address] [facility] [place] [address] * Magnesium (12/12/2023 4:20 AM RAG PRODUCTION WORKER) Magnesium 1.8 1.4 - 2.5 mg/dL [facility] Blood 12/12/2023 4:20 AM RAG PRODUCTION WORKER 12/12/2023 4:34 AM RAG PRODUCTION WORKER Maxi Carrion MD LAB BLOOD ORDERABLES Fin al Result Performing Organization Address [facility] Co de Phone Number [facility] [address] [facility] [place] [address] * Basic metabolic panel (12/12/2023 4:20 AM RAG PRODUCTION WORKER) Sodium 138 135 - 145 mmol/L [facility] Potassium, pl 4.8 3.3 - 4.9 mmol/L [facility] Chloride 105 97 - 110 mmol/L [facility] CO2 24 22 - 32 mmol/L [facility] Anion gap 9 2 - 15 mmol/L [facility] BUN 18 6 - 25 mg/dL [facility] Creatinine 1.14 0.80 - 1.30 mg/dL [facility] Glucose 105 70 - 199 mg/dL [facility] Comment: Interpretive Data Fasting glucose >/= 126 [...] 2022. Calcium 9.0 8.5 - 10.3 mg/dL [facility] Blood 12/12/2023 4:20 AM RAG PRODUCTION WORKER 12/12/2023 4:34 AM RAG PRODUCTION WORKER us Bernard Casillas MD LAB BLOOD ORDERABLES Final R esult [facility] [address] Department [place] [address] * (ABNORMAL) CBC with auto differential (12/12/2023 4:20 AM RAG PRODUCTION WORKER) Pathologist [facility] [place] WBC 8.5 3.8 - 9.9 K/cumm [facility] Hgb 13.5 13.0 - 17.5 g/dL [facility] Hct 41.8 38.9 - 50.3 % [facility] Plt 222 150 - 400 K/cumm [facility] MPV 10.1 9.1 - 12.3 fL [facility] RBC 4.24(L) 4.30 - 5.80 M/cumm [facility] MCV 98.6(H) 81.3 - 96.4 fL [facility] MCH 31.8 27.1 - 33.3 pg [facility] MCHC 32.3 32.3 - 35.7 g/dL [facility] RDW CV 12.9 11.1 - 14.9 % [facility] RDW SD 46.5 35.7 - 48.1 fL [facility] NRBC abs 0.00 0.00 - 0.01 K/cumm [facility] Blood 12/12/2023 4:20 AM RAG PRODUCTION WORKER 12/12/2023 4:33 AM RAG PRODUCTION WORKER Bernard Casillas MD LAB BLOOD ORDERABLES Final R esult [facility] [address] Department [place] [address] * eGFR (12/11/2023 5:47 AM RAG PRODUCTION WORKER) eGFR 73 mL/min/1. 73 m2 [facility] Comment: Interpretive Data Reference Interval Normal ?>/= [...] interpretive data was last reviewed 2021. Blood 12/11/2023 5:4 7 AM RAG PRODUCTION WORKER 12/11/2023 6:28 AM RAG PRODUCTION WORKER us Maxi Carrion MD LAB BLOOD ORDERABLES Fin al Result [facility] [address] Department [place] [address] * (ABNORMAL) Differential, auto (12/11/2023 5:47 AM RAG PRODUCTION WORKER) Neutrophil abs 5.5 1.5 - 6.5 K/cumm [facility] Imm gran abs 0.0 0.0 - 0.1 K/cumm [facility] Lymphocyte abs 2.4 0.8 - 3.3 K/cumm [facility] Monocyte abs 0.9(H) 0.2 - 0.8 K/cumm [facility] Eosinophil abs 0.2 0.0 - 0.5 K/cumm [facility] Basophil abs 0.0 0.0 - 0.1 K/cumm [facility] Neutrophil pct 61.2 % [facility] Comment: Interpretive Data Percent cell count reference ranges are not reported, since discordance with absolute values may lead to misinterpretation of CBC data. Current Interpretive Data was last revised on 2018. Imm gran pct 0.4 % [facility] Comment: Interpretive Data Percent cell count reference ranges are not reported, since discordance with absolute values may lead to misinterpretation of CBC data. Current Interpretive Data was last revised on 2018. Lymphocyte pct 26.4 % [facility] Comment: Interpretive Data Percent cell count reference ranges are not reported, since discordance with absolute values may lead to misinterpretation of CBC data. Current Interpretive Data was last revised on 2018. Monocyte pct 9.6 % [facility] Comment: Interpretive Data Percent cell count reference ranges are not reported, since discordance with absolute values may lead to misinterpretation of CBC data. Current Interpretive Data was last revised on 2018. Eosinophil pct 2.0 % [facility] Comment: Interpretive Data Percent cell count reference ranges are not reported, since discordance with absolute values may lead to misinterpretation of CBC data. Current Interpretive Data was last revised on 2018. Basophil pct 0.4 % [facility] Comment: Interpretive Data Percent cell count reference ranges are not reported, since discordance with absolute values may lead to misinterpretation of CBC data. Current Interpretive Data was last revised on 2018. Blood 12/11/2023 5:47 AM RAG PRODUCTION WORKER 12/11/2023 6:28 AM RAG PRODUCTION WORKER Maxi Carrion MD LAB BLOOD ORDERABLES Fin al Result Performing Organization Address [facility] de Phone Number [facility] [address] [facility] [place] [address] * Protime-INR (12/11/2023 5:47 AM RAG PRODUCTION WORKER) PT 12.7 10.3 - 13.7 sec [facility] INR 1.11 0.90 - 1.20 [facility] Comment: Interpretive data Oral anticoagulant therapeutic ranges: Venous thromboembolism prophylaxis or treatment: 2.0-3.0 CARDIOLOGY Standard range: 2.0-3.0 High-intensity range: 2.5-3.5 Refer to indication-specific guidelines for appropriate target ranges for prosthetic heart valve replacement. Current interpretive data was last revised on 2019. Blood 12/11/2023 5:47 AM RAG PRODUCTION WORKER 12/11/2023 6:29 AM RAG PRODUCTION WORKER Kristen Isabel EDUCATIONAL DIAGNOSTICIAN LAB BLOOD ORDERAB LES Final Result Performing Organization Address [facility] de Phone Number [facility] [address] [facility] [place] [address] * Phosphorus (12/11/2023 5:47 AM RAG PRODUCTION WORKER) Phosphorus, pl 3.4 2.3 - 4.5 mg/dL [facility] Blood 12/11/2023 5:47 AM RAG PRODUCTION WORKER 12/11/2023 6:28 AM RAG PRODUCTION WORKER Maxi Carrion MD LAB BLOOD ORDERABLES Fin al Result Performing Organization Address [facility] de Phone Number [facility] [address] Department [place] [address] * Magnesium (12/11/2023 5:47 AM RAG PRODUCTION WORKER) Magnesium 1.9 1.4 - 2.5 mg/dL [facility] Blood 12/11/2023 5:47 AM RAG PRODUCTION WORKER 12/11/2023 6:28 AM RAG PRODUCTION WORKER Maxi Carrion MD LAB BLOOD ORDERABLES Fin al Result Performing Organization Address [facility] de Phone Number [facility] [address] Department [place] [address] * Basic metabolic panel (12/11/2023 5:47 AM RAG PRODUCTION WORKER) Sodium 138 135 - 145 mmol/L [facility] Potassium, pl 4.5 3.3 - 4.9 mmol/L [facility] Chloride 104 97 - 110 mmol/L [facility] CO2 25 22 - 32 mmol/L [facility] Anion gap 9 2 - 15 mmol/L [facility] BUN 19 6 - 25 mg/dL [facility] Creatinine 1.04 0.80 - 1.30 mg/dL [facility] Glucose 116 70 - 199 mg/dL [facility] Comment: Interpretive Data Fasting glucose >/= 126 [...] interpretive data was last revised 2022. Calcium 9.1 8.5 - 10.3 mg/dL [facility] Blood 12/11/2023 5:47 AM RAG PRODUCTION WORKER 12/11/2023 6:28 AM RAG PRODUCTION WORKER Bernard Casillas MD LAB BLOOD ORDERABLES Final R esult Performing Organization Address City/[facility]/ZIP Co de Phone Number MARVIN FISHER [id number] Department [place] [address] * (ABNORMAL) CBC with auto differential (12/11/2023 5:47 AM RAG PRODUCTION WORKER) WBC 9.1 3.8 - 9.9 K/cumm [facility] Hgb 13.6 13.0 - 17.5 g/dL [facility] Hct 41.5 38.9 - 50.3 % [facility] Plt 220 150 - 400 K/cumm [facility] MPV 10.7 9.1 - 12.3 fL [facility] RBC 4.26(L) 4.30 - 5.80 M/cumm [facility] MCV 97.4(H) 81.3 - 96.4 fL [facility] MCH 31.9 27.1 - 33.3 pg [facility] MCHC 32.8 32.3 - 35.7 g/dL [facility] RDW CV 12.9 11.1 - 14.9 % [facility] RDW SD 45.8 35.7 - 48.1 fL [facility] NRBC abs 0.00 0.00 - 0.01 K/cumm [facility] Blood 12/11/2023 5:47 AM RAG PRODUCTION WORKER 12/11/2023 6:28 AM RAG PRODUCTION WORKER us Bernard Casillas MD LAB BLOOD ORDERABLES Final R esult Performing Organization Address [facility] Co de Phone Number MARVIN FISHER [id number] Department [place] [address] * eGFR (12/10/2023 2:54 AM RAG PRODUCTION WORKER) Pathologist [facility] [place] eGFR 67 mL/min/1. 73 m2 [facility] Comment: Interpretive Data Reference Interval Normal ?>/= [...] interpretive data was last reviewed 2021. Blood 12/10/2023 2:54 AM RAG PRODUCTION WORKER 12/10/2023 3:52 AM RAG PRODUCTION WORKER us Maxi Carrion MD LAB BLOOD ORDERABLES Fin al Result [facility] [id number] Department [place] [address] * Differential, auto (12/10/2023 2:54 AM RAG PRODUCTION WORKER) Neutrophil abs 4.0 1.5 - 6.5 K/cumm [facility] Imm gran abs 0.0 0.0 - 0.1 K/cumm [facility] Lymphocyte abs 2.2 0.8 - 3.3 K/cumm [facility] Monocyte abs 0.8 0.2 - 0.8 K/cumm [facility] Eosinophil abs 0.3 0.0 - 0.5 K/cumm [facility] Basophil abs 0.0 0.0 - 0.1 K/cumm [facility] Neutrophil pct 55.1 % [facility] Comment: Interpretive Data Percent cell count reference ranges are not reported, since discordance with absolute values may lead to misinterpretation of CBC data. Current Interpretive Data was last revised on 2018. Imm gran pct 0.3 % [facility] Comment: Interpretive Data Percent cell count reference ranges are not reported, since discordance with absolute values may lead to misinterpretation of CBC data. Current Interpretive Data was last revised on 2018. Lymphocyte pct 29.8 % [facility] Comment: Interpretive Data Percent cell count reference ranges are not reported, since discordance with absolute values may lead to misinterpretation of CBC data. Current Interpretive Data was last revised on 2018. Monocyte pct 10.3 % [facility] Comment: Interpretive Data Percent cell count reference ranges are not reported, since discordance with absolute values may lead to misinterpretation of CBC data. Current Interpretive Data was last revised on 2018. Eosinophil pct 4.0 % [facility] Comment: Interpretive Data Percent cell count reference ranges are not reported, since discordance with absolute values may lead to misinterpretation of CBC data. Current Interpretive Data was last revised on 2018. Basophil pct 0.5 % [facility] Comment: Interpretive Data Percent cell count reference ranges are not reported, since discordance with absolute values may lead to misinterpretation of CBC data. Current Interpretive Data was last revised on 2018. Blood 12/10/2023 2:54 AM RAG PRODUCTION WORKER 12/10/2023 3:51 AM RAG PRODUCTION WORKER Maxi Carrion MD LAB BLOOD ORDERABLES Fin al Result Performing Organization Address [facility] Co de Phone Number [facility] [address] [place] [address] * Phosphorus (12/10/2023 2:54 AM RAG PRODUCTION WORKER) Phosphorus, pl 3.2 2.3 - 4.5 mg/dL [facility] Blood 12/10/2023 2:54 AM RAG PRODUCTION WORKER 12/10/2023 3:52 AM RAG PRODUCTION WORKER Maxi Carrion MD LAB BLOOD ORDERABLES Fin al Result Performing Organization Address [facility] Co de Phone Number [facility] [address] Department [place] [address] * Magnesium (12/10/2023 2:54 AM RAG PRODUCTION WORKER) Magnesium 1.9 1.4 - 2.5 mg/dL [facility] Blood 12/10/2023 2:54 AM RAG PRODUCTION WORKER 12/10/2023 3:52 AM RAG PRODUCTION WORKER Maxi Carrion MD LAB BLOOD ORDERABLES Fin al Result [facility] [address] Department [place] [address] * Basic metabolic panel (12/10/2023 2:54 AM RAG PRODUCTION WORKER) Sodium 140 135 - 145 mmol/L [facility] Potassium, pl 4.2 3.3 - 4.9 mmol/L [facility] Chloride 106 97 - 110 mmol/L [facility] CO2 25 22 - 32 mmol/L [facility] Anion gap 9 2 - 15 mmol/L [facility] BUN 17 6 - 25 mg/dL [facility] Creatinine 1.12 0.80 - 1.30 mg/dL [facility] Glucose 100 70 - 199 mg/dL [facility] Comment: Interpretive Data Fasting glucose >/= 126 [...] interpretive data was last revised 2022. Calcium 8.8 8.5 - 10.3 mg/dL [facility] Blood 12/10/2023 2:54 AM RAG PRODUCTION WORKER 12/10/2023 3:52 AM RAG PRODUCTION WORKER Bernard Casillas MD LAB BLOOD ORDERABLES Final R esult [facility] [address] Department [place] [place] [address] * (ABNORMAL) CBC with auto differential (12/10/2023 2:54 AM RAG PRODUCTION WORKER) Pathologist [facility] [place] WBC 7.3 3.8 - 9.9 K/cumm [facility] Hgb 12.8(L) 13.0 - 17.5 g/dL [facility] Hct 38.8(L) 38.9 - 50.3 % [facility] Plt 228 150 - 400 K/cumm [facility] MPV 10.9 9.1 - 12.3 fL [facility] RBC 3.97(L) 4.30 - 5.80 M/cumm [facility] MCV 97.7(H) 81.3 - 96.4 fL [facility] MCH 32.2 27.1 - 33.3 pg [facility] MCHC 33.0 32.3 - 35.7 g/dL [facility] CH RDW CV 13.0 11.1 - 14.9 % [facility] RDW SD 46.5 35.7 - 48.1 fL [facility] NRBC abs 0.00 0.00 - 0.01 K/cumm [facility] Blood 12/10/2023 2:54 AM RAG PRODUCTION WORKER 12/10/2023 3:51 AM RAG PRODUCTION WORKER us Bernard Casillas MD LAB BLOOD ORDERABLES Final R esult [facility] [address] Department [place] [address] * eGFR (12/09/2023 6:19 AM RAG PRODUCTION WORKER) Pathologist [facility] [place] eGFR 65 mL/min/1. 73 m2 [facility] Comment: Interpretive Data Reference Interval Normal ?>/= [...] interpretive data was last reviewed 2021. Blood 12/09/2023 6:19 AM RAG PRODUCTION WORKER 12/09/2023 6:35 AM RAG PRODUCTION WORKER Maxi Carrion MD LAB BLOOD ORDERABLES Fin al Result [facility] [address] Department [place] [address] * Differential, auto (12/09/2023 6:19 AM RAG PRODUCTION WORKER) Neutrophil abs 5.5 1.5 - 6.5 K/cumm [facility] Imm gran abs 0.1 0.0 - 0.1 K/cumm [facility] Lymphocyte abs 2.0 0.8 - 3.3 K/cumm [facility] Monocyte abs 0.7 0.2 - 0.8 K/cumm [facility] Eosinophil abs 0.3 0.0 - 0.5 K/cumm [facility] Basophil abs 0.1 0.0 - 0.1 K/cumm [facility] Neutrophil pct 64.1 % [facility] Comment: Interpretive Data Percent cell count reference ranges are not reported, since discordance with absolute values may lead to misinterpretation of CBC data. Current Interpretive Data was last revised on 2018. Imm gran pct 0.6 % [facility] Comment: Interpretive Data Percent cell count reference ranges are not reported, since discordance with absolute values may lead to misinterpretation of CBC data. Current Interpretive Data was last revised on 2018. Lymphocyte pct 23.6 % [facility] Comment: Interpretive Data Percent cell count reference ranges are not reported, since discordance with absolute values may lead to misinterpretation of CBC data. Current Interpretive Data was last revised on 2018. Monocyte pct 8.2 % [facility] Comment: Interpretive Data Percent cell count reference ranges are not reported, since discordance with absolute values may lead to misinterpretation of CBC data. Current Interpretive Data was last revised on 2018. Eosinophil pct 2.9 % [facility] Comment: Interpretive Data Percent cell count reference ranges are not reported, since discordance with absolute values may lead to misinterpretation of CBC data. Current Interpretive Data was last revised on 2018. Basophil pct 0.6 % [facility] Comment: Interpretive Data Percent cell count reference ranges are not reported, since discordance with absolute values may lead to misinterpretation of CBC data. Current Interpretive Data was last revised on 2018. Blood 12/09/2023 6:19 AM RAG PRODUCTION WORKER 12/09/2023 6:35 AM RAG PRODUCTION WORKER Maxi Carrion MD LAB BLOOD ORDERABLES Fin al Result Performing Organization Address [facility] de Phone Number [facility] [id number] [facility] [place] [address] * Phosphorus (12/09/2023 6:19 AM RAG PRODUCTION WORKER) Pathologist [facility] [place] Phosphorus, pl 3.1 2.3 - 4.5 mg/dL [facility] Blood 12/09/2023 6:19 AM RAG PRODUCTION WORKER 12/09/2023 6:35 AM RAG PRODUCTION WORKER Maxi Carrion MD LAB BLOOD ORDERABLES Fin al Result Performing Organization Address [facility] Co de Phone Number [facility] [address] Department [place] [address] * Magnesium (12/09/2023 6:19 AM RAG PRODUCTION WORKER) Pathologist [facility] [place] Magnesium 1.9 1.4 - 2.5 mg/dL [facility] Blood 12/09/2023 6:19 AM RAG PRODUCTION WORKER 12/09/2023 6:35 AM RAG PRODUCTION WORKER Maxi Carrion MD LAB BLOOD ORDERABLES Fin al Result Performing Organization Address City/[facility] Co de Phone Number [facility] [address] Department [place] [address] * Basic metabolic panel (12/09/2023 6:19 AM RAG PRODUCTION WORKER) Sodium 140 135 - 145 mmol/L [facility] Potassium, pl 4.2 3.3 - 4.9 mmol/L [facility] Chloride 106 97 - 110 mmol/L [facility] CH CO2 27 22 - 32 mmol/L [facility] Anion gap 7 2 - 15 mmol/L [facility] BUN 18 6 - 25 mg/dL [facility] Creatinine 1.14 0.80 - 1.30 mg/dL [facility] Glucose 117 70 - 199 mg/dL [facility] Comment: Interpretive Data Fasting glucose >/= 126 [...] Calcium 8.9 8.5 - 10.3 mg/dL [facility] Blood 12/09/2023 6:19 AM RAG PRODUCTION WORKER 12/09/2023 6:35 AM RAG PRODUCTION WORKER us Bernard Casillas MD LAB BLOOD ORDERABLES Final R esult Performing Organization Address City/[facility]/ZIP Co de Phone Number [facility] [address] Department [place] [address] * (ABNORMAL) CBC with auto differential (12/09/2023 6:19 AM RAG PRODUCTION WORKER) WBC 8.6 3.8 - 9.9 K/cumm [facility] Hgb 13.1 13.0 - 17.5 g/dL [facility] Hct 40.3 38.9 - 50.3 % [facility] Plt 210 150 - 400 K/cumm [facility] MPV 10.4 9.1 - 12.3 fL [facility] RBC 4.08(L) 4.30 - 5.80 M/cumm [facility] CH MCV 98.8(H) 81.3 - 96.4 fL [facility] MCH 32.1 27.1 - 33.3 pg [facility] MCHC 32.5 32.3 - 35.7 g/dL [facility] RDW CV 13.1 11.1 - 14.9 % [facility] RDW SD 47.3 35.7 - 48.1 fL [facility] NRBC abs 0.00 0.00 - 0.01 K/cumm [facility] Blood 12/09/2023 6:19 AM RAG PRODUCTION WORKER 12/09/2023 6:35 AM RAG PRODUCTION WORKER us Bernard Casillas MD LAB BLOOD ORDERABLES Final R esult Performing Organization Address City/[facility]/ZIP Co de Phone Number [facility] [address] [place] [address] * POCT glucose (12/08/2023 4:35 PM RAG PRODUCTION WORKER) Pathologist [facility] [place] Glucose, POC 109 70 - 199 mg/dL [facility] Blood 12/08/2023 4:35 PM RAG PRODUCTION WORKER 12/08/2023 4:35 PM RAG PRODUCTION WORKER Maxi Carrion MD LAB POCT ORDERABLES - DE VICE Final Result Performing Organization Address [facility] Co de Phone Number [facility] [address] Department [place] [address] * CT Head WO Contrast (12/08/2023 3:57 PM RAG PRODUCTION WORKER) Anatomical Region Laterality Modality Head and Neck N/A Computed Tomogra phy 12/08/2023 4:05 PM RAG PRODUCTION WORKER Impressions 12/08/2023 4:05 PM RAG PRODUCTION WORKER 1. ??No definitive acute intracranial findings. 2. ??Chronic microvascular ischemic changes and volume loss. Electronically signed by: Jhonny Smallwood II, D.O. Narrative 12/08/2023 4:05 PM RAG PRODUCTION WORKER EXAMINATION: CT HEAD WO CONTRAST DATE: 12/08/2023 3:50 PM HISTORY: Stroke follow-up. COMPARISON: MRI of the brain dated 12/08/2023. TECHNIQUE: Transaxial computed tomographic images of the head were obtained without intravenous contrast. FINDINGS: No mass, mass effect, midline shift, or hemorrhage is demonstrated. Yang-white differentiation is well preserved. ??Mild global volume loss. ??The orbits, mastoid air cells, and extracalvarial soft tissues are unremarkable. ??Mild chronic mucosal inflammatory changes of the paranasal sinuses. ??Extracalvarial soft tissues are unremarkable. Procedure Note Jhonny Smallwood II, DO - 12/08/2023 EXAMINATION: CT HEAD WO CONTRAST DATE: 12/08/2023 3:50 PM HISTORY: Stroke follow-up. COMPARISON: MRI of the brain dated 12/08/2023. TECHNIQUE: Transaxial computed tomographic images of the head were obtained without intravenous contrast. FINDINGS: No mass, mass effect, midline shift, or hemorrhage is demonstrated. Yang-white differentiation is well preserved. Mild global volume loss. The orbits, mastoid air cells, and extracalvarial soft tissues are unremarkable. Mild chronic mucosal inflammatory changes of the paranasal sinuses. Extracalvarial soft tissues are unremarkable. IMPRESSION: 1. No definitive acute intracranial findings. 2. Chronic microvascular ischemic changes and volume loss. Electronically signed by: Jhonny Smallwood II, D.O. Maxi Carrion MD [facility] CT PROCEDURES Final Result * MRI Brain WO Contrast (12/08/2023 1:59 PM RAG PRODUCTION WORKER) Anatomical Region Laterality Modality Head and Neck N/A Magnetic Resonan ce 12/08/2023 2:11 PM RAG PRODUCTION WORKER Impressions 12/08/2023 2:11 PM RAG PRODUCTION WORKER Acute infarct posterior limb internal capsule right side. ??Underlying atrophy and small vessel disease. ??No hemorrhagic changes identified Electronically signed by: Beka Draper M.D. Narrative 12/08/2023 2:11 PM RAG PRODUCTION WORKER EXAMINATION: MRI BRAIN WO CONTRAST HISTORY: Stroke symptoms 78-year-old man, previous stroke, vascular disease, seizures asthma TECHNIQUE: Multiplanar multisequence spin-echo images obtained FINDINGS: Correlation is made with an MRI dated 02/14/2020 and a CAT scan dated today's date. ??Independent data set. Stable involutional changes with large ventricles and sulci. ??There is an area of restricted diffusion in the posterior limb of the internal capsule on the right side, consistent with an acute infarct. No other restricted diffusion is seen. ??T1-weighted images demonstrate no mass effect. ??FLAIR images demonstrate T2 hyperintensity in the posterior limb of internal capsule on the right side as well as areas of T2 hyperintensity in the periventricular and subcortical deep white matter consistent with chronic microvascular disease. ??T2-weighted images demonstrate normal flow voids within the benton of [place]. ??The brainstem and cerebellar hemispheres are normal. Bilateral cataract surgery. The deep venous sinuses appear to be patent. ??Susceptibility images demonstrate no hemorrhagic changes. ??Craniovertebral junction normal. Pituitary fossa normal. Procedure Note Beka Draper MD - 12/08/2023 EXAMINATION: MRI BRAIN WO CONTRAST HISTORY: Stroke symptoms 78-year-old man, previous stroke, vascular disease, seizures asthma TECHNIQUE: Multiplanar multisequence spin-echo images obtained FINDINGS: Correlation is made with an MRI dated 02/14/2020 and a CAT scan dated today's date. Independent data set. Stable involutional changes with large ventricles and sulci. There is an area of restricted diffusion in the posterior limb of the internal capsule on the right side, consistent with an acute infarct. No other restricted diffusion is seen. T1-weighted images demonstrate no mass effect. FLAIR images demonstrate T2 hyperintensity in the posterior limb of internal capsule on the right side as well as areas of T2 hyperintensity in the periventricular and subcortical deep white matter consistent with chronic microvascular disease. T2-weighted images demonstrate normal flow voids within the benton of [place]. The brainstem and cerebellar hemispheres are normal. Bilateral cataract surgery. The deep venous sinuses appear to be patent. Susceptibility images demonstrate no hemorrhagic changes. Craniovertebral junction normal. Pituitary fossa normal. IMPRESSION: Acute infarct posterior limb internal capsule right side. Underlying atrophy and small vessel disease. No hemorrhagic changes identified Electronically signed by: Beka Draper M.D. us Maxi Carrion MD IMG MRI PROCEDURES Final Result * CT Head WO Contrast (12/08/2023 1:34 PM RAG PRODUCTION WORKER) Anatomical Region Laterality Modality Head and Neck N/A Computed Tomogra phy 12/08/2023 1:39 PM RAG PRODUCTION WORKER Impressions 12/08/2023 1:39 PM RAG PRODUCTION WORKER Cerebral atrophy and small vessel disease, in keeping with the patient's age. No bleed or mass. Electronically signed by: Cat Sandoval M.D. Narrative 12/08/2023 1:39 PM RAG PRODUCTION WORKER EXAMINATION: CT HEAD WO CONTRAST HISTORY: The patient is a 78 year old male who is 24 hours post thrombolytic treatment. TECHNIQUE: Axial images were obtained through the brain with thin sections and viewed both in soft tissue and bone window settings. ??Following this, coronal and sagittal reconstructions were performed. FINDINGS: Axial images through the brain reveals prominence of the 4th, 3rd and lateral ventricles as well as the cerebral sulci. ??No midline shift is seen. ??Periventricular hypodensities are noted in the centrum semiovale, consistent with small vessel deep white matter atherosclerotic disease. ??No intracerebral hemorrhage or extra-axial fluid collection is noted. Images obtained in the coronal and sagittal planes adds no further information. ??Axial images obtained bone window settings reveal the cranial vault to be intact. ??Mastoid air cells and paranasal sinuses are normally aerated. Procedure Note Cat Sandoval MD - 12/08/2023 EXAMINATION: CT HEAD WO CONTRAST HISTORY: The patient is a 78 year old male who is 24 hours post thrombolytic treatment. TECHNIQUE: Axial images were obtained through the brain with thin sections and viewed both in soft tissue and bone window settings. Following this, coronal and sagittal reconstructions were performed. FINDINGS: Axial images through the brain reveals prominence of the 4th, 3rd and lateral ventricles as well as the cerebral sulci. No midline shift is seen. Periventricular hypodensities are noted in the centrum semiovale, consistent with small vessel deep white matter atherosclerotic disease. No intracerebral hemorrhage or extra-axial fluid collection is noted. Images obtained in the coronal and sagittal planes adds no further information. Axial images obtained bone window settings reveal the cranial vault to be intact. Mastoid air cells and paranasal sinuses are normally aerated. IMPRESSION: Cerebral atrophy and small vessel disease, in keeping with the patient's age. No bleed or mass. Electronically signed by: Cat Sandoval M.D. Maxi Carrion MD IMG CT PROCEDURES Final Result * TRANSTHORACIC ECHO (TTE) COMPLETE W DOPPLER/CF WO CONTRAST (12/08/2023 1:30 PM RAG PRODUCTION WORKER) Anatomical Region Laterality Modality Ultrasound 12/08/2023 12:5 2 PM RAG PRODUCTION WORKER Narrative 12/08/2023 1:59 [place] [address] Echocardiogram Report ADDENDUM Patient Name: GUNJAN GTZ : 1945 Study Date: 12/08/2023 12:52:29 PM Gender: M Tech: Location: [address] Provider: MAXI CARRION ?Height(Cm): 180 BSA: 2.27 Weight(Kg): 103 Heart Rate: 60 BP: 144/72 Quality: Good Order Provider: MAXI CARRION PROCEDURES: Echocardiographic Report: Transthoracic echocardiogram with 2D, M-Mode, and color Doppler examination with saline contrast study. INDICATIONS: Acute CVA. Measurements: 2D/M Mode ? Doppler Measurement ?Value ?Normal Range ? Measurement ?Value ?Normal Range EF Teich 2D ?60.1 ? [ 52.0 - 72.0 ] percent ?OH Vmax ? 2.12 ? cm2 EF Mod 4C ?63.3 ? percent ?AV Mean PG ? 5 ?mmHg LVIDd 2D ? 3.84 ? [ 4.20 - 5.80 ] cm ? AV Peak Anselmo ?1.49 ? [ 1.00 - 1.70 ] m/s LVIDs 2D ? 2.63 ? [ 2.50 - 4.00 ] cm ? AV VTI ? 28.26 ?cm LVPWd 2D ? 0.92 ? [ 0.60 - 1.00 ] cm ? LVOT Diam ?2.28 ? cm IVSd 2D ?1.27 ? [ 0.60 - 1.00 ] cm ? LVOT Peak Anselmo ?0.78 ? [ 0.70 - 1.10 ] m/s LA Volume Index ?30.85 ?[ 16.00 - 34.00 ] cc/m2 ?LVOT VTI ? 15.83 ?cm MV E Peak Anselmo ?0.51 ? [ 0.60 - 1.30 ] m/s MV A Peak Anselmo ?0.76 ? [ 1.00 - 1.20 ] m/s MV Mean PG ? 1 ?mmHg MV Decel Time ?323 ?[ 104 - 258 ] msec PV Peak Anselmo ?1.53 ? [ 0.40 - 0.80 ] m/s TR Peak Anselmo ?2.07 ? [ 1.00 - 2.80 ] m/s TR Peak PG ? 17 ? mmHg E` ? 0.05 ? m/s E/E` ? 9.70 Measurement ?Value ?Normal Range ? Measurement ?Value ?Normal Range 2D/M Mode ? Doppler - FINDINGS: Atrial Septum: Normal atrial septum. Saline contrast study performed without evidence of right to left shunt. Left Ventricle: Normal left ventricular size. Mild concentric left ventricular hypertrophy. Impaired diastolic relaxation Grade I. Ejection fraction is measured at 62 %. Left Atrium: The left atrium is normal in size. Right Ventricle: Normal right ventricular size. Normal right ventricular systolic function. Right Atrium: The right atrium is normal in size. Aortic Valve: Aortic cusps appear mildly sclerotic. Aortic cusps appear mildly calcified. No evidence of hemodynamically significant aortic stenosis by Doppler. No aortic regurgitation. Mitral Valve: Normal structure of the mitral valve. Trivial regurgitation of the mitral valve. Pulmonic Valve: Pulmonic valve not well visualized. Trivial regurgitation in the pulmonic valve. Tricuspid Valve: Normal structure of the tricuspid valve. Estimated peak RVSP is 17 mmHg. Trivial regurgitation in the tricuspid valve. Pericardium: Normal pericardium with no significant pericardial effusion. Aorta: Normal aortic root. IVC: Normal size and normal respiratory collapse consistent with normal right atrial pressure (<5 mmHg). CONCLUSIONS: Normal left ventricular size. Mild concentric left [...] mmHg. Trivial regurgitation in the tricuspid valve. Electronically Signed By: Carolyne Mendiola DO, FACC, FASE, FASNC 2023-12-10 09:56:02 RAG PRODUCTION WORKER CC: CC: CC: Procedure Note Carolyne Mendiola DO - 12/10/[address] [place] [address] Echocardiogram Report ADDENDUM Patient Name: GUNJAN GTZ : 1945 Study Date: 12/08/2023 12:52:29 PM Gender: M Tech: BE Location: [place] [address] Ref Provider: MAXI CARRION Height(Cm): 180 BSA: 2.27 Weight(Kg): 103 Heart Rate: 60 BP: 144/72 Quality: Good Order Provider: MAXI CARRION PROCEDURES: Echocardiographic Report: Transthoracic echocardiogram with 2D, M-Mode, and color Dopplerexamination with saline contrast study. INDICATIONS: Acute CVA. Measurements: 2D/M ModeDoppler Measurement Value Normal Range MeasurementValue Normal Range EF Teich 2D 60.1 [ 52.0 - 72.0 ] percent OH Vmax2.12 cm2 EF Mod 4C 63.3 percent AV Mean PG5 mmHg LVIDd 2D 3.84 [ 4.20 - 5.80 ] cm AV Peak Vel1.49 [ 1.00 - 1.70 ] m/s LVIDs 2D 2.63 [ 2.50 - 4.00 ] cm AV VTI28.26 cm LVPWd 2D 0.92 [ 0.60 - 1.00 ] cm LVOT Diam2.28 cm IVSd 2D 1.27 [ 0.60 - 1.00 ] cm LVOT PeakVel 0.78 [ 0.70 - 1.10 ] m/s LA Volume Index 30.85 [ 16.00 - 34.00 ] cc/m2 LVOT VTI15.83 cm MV E Peak Anselmo 0.51 [ 0.60 - 1.30 ] m/s MV A Peak Anselmo 0.76 [ 1.00 - 1.20 ] m/s MV Mean PG 1 mmHg MV Decel Time 323 [ 104 - 258 ] msec PV Peak Anselmo 1.53 [ 0.40 - 0.80 ] m/s TR Peak Anselmo 2.07 [ 1.00 - 2.80 ] m/s TR Peak PG 17 mmHg E` 0.05 m/s E/E` 9.70 Measurement Value Normal Range MeasurementValue Normal Range 2D/M ModeDoppler - FINDINGS: Atrial Septum: Normal atrial septum. Saline contrast study performed without evidence ofright to left shunt. Left Ventricle: Normal left ventricular size. Mild concentric left ventricularhypertrophy. Impaired diastolic relaxation Grade I. Ejection fraction is measured at 62 %. Left Atrium: The left atrium is normal in size. Right Ventricle: Normal right ventricular size. Normal right ventricular systolicfunction. Right Atrium: The right atrium is normal in size. Aortic Valve: Aortic cusps appear mildly sclerotic. Aortic cusps appear mildlycalcified. No evidence of hemodynamically significant aortic stenosis by Doppler. No aorticregurgitation. Mitral Valve: Normal structure of the mitral valve. Trivial regurgitation of the mitralvalve. Pulmonic Valve: Pulmonic valve not well visualized. Trivial regurgitation in the pulmonicvalve. Tricuspid Valve: Normal structure of the tricuspid valve. Estimated peak RVSP is 17 mmHg.Trivial regurgitation in the tricuspid valve. Pericardium: Normal pericardium with no significant pericardial effusion. Aorta: Normal aortic root. IVC: Normal size and normal respiratory collapse consistent with normal rightatrial pressure (<5 mmHg). CONCLUSIONS: Normal left ventricular size. Mild concentric left ventricularhypertrophy. Impaired diastolic relaxation Grade I. Ejection fraction is measured at 62 %. Normal right ventricular size. Normal right ventricular systolicfunction. Normal atrial septum. Saline contrast study performed without evidence ofright to left shunt. Normal structure of the mitral valve. Trivial regurgitation of the mitralvalve. Aortic cusps appear mildly sclerotic. Aortic cusps appear mildlycalcified. No evidence of hemodynamically significant aortic stenosis by Doppler. No aorticregurgitation. Normal structure of the tricuspid valve. Estimated peak RVSP is 17 mmHg.Trivial regurgitation in the tricuspid valve. Electronically Signed By: Carolyne Mendiola DO, BO, SONIDO MORRIS 2023-12-10 09:56:02 RAG PRODUCTION WORKER CC: CC: CC: us Maxi Carrion MD CV ECHO PROCEDURES Edite d Result - Final * POCT glucose (12/08/2023 7:26 AM RAG PRODUCTION WORKER) Glucose, POC 105 70 - 199 mg/dL [facility] Blood 12/08/2023 7:26 AM RAG PRODUCTION WORKER 12/08/2023 7:26 AM RAG PRODUCTION WORKER us Maxi Carrion MD LAB POCT ORDERABLES - DE VICE Final Result Performing Organization Address [facility] Co de Phone Number MARVIN FISHER [phone] [facility] [place] [address] * POCT glucose (12/08/2023 4:43 AM RAG PRODUCTION WORKER) Glucose, POC 112 70 - 199 mg/dL [facility]IN Blood 12/08/2023 4:43 AM RAG PRODUCTION WORKER 12/08/2023 4:43 AM RAG PRODUCTION WORKER us Maxi Carrion MD LAB POCT ORDERABLES - DE VICE Final Result Performing Organization Address [facility] Phone Number MARVIN FISHER [phone] [place] [address] * Lipid panel (12/08/2023 4:10 AM RAG PRODUCTION WORKER) Cholesterol 182 30 - 199 mg/dL [facility]IN Comment: Interpretive Data Ages < or = 19 years ??Acceptable: ? <170 mg/dL ??Borderline high: ??170-199 mg/dL ??High: ? >or= 200 mg/dL Ages > or = 20 years ??Desirable: ?<200 mg/dL ??Borderline high: ??200-239 mg/dL ??High: ? >or= 240 mg/dL Literature References: 1. Expert Panel on Integrated Guidelines for Cardiovascular Health and Risk Reduction in Children and Adolescents. Pediatrics 2011;128:S213 2. NCEP Expert Panel. Circulation 2004;110:227 Current Interpretive Data was last revised on 2018. Triglycerides 86 <=149 mg/dL [facility] FISHER Comment: Interpretive Data Ages < or = 9 years ??Acceptable: ? <75 mg/dL ??Borderline high: ??75-99 mg/dL ??High: ? >or= 100 mg/dL Ages 10 to 20 years ??Acceptable: ? <90 mg/dL ??Borderline high: ??90-129 mg/dL ??High: ? >or= 130 mg/dL Ages > or = 20 years ??Desirable: ?<150 mg/dL ??Borderline high: ??150-199 mg/dL ??High: ? 200-499 mg/dL ?Very high: ?? >or= 499 mg/dL Literature References: 1. Expert Panel on Integrated Guidelines for Cardiovascular Health and Risk Reduction in Children and Adolescents. Pediatrics 2011;128:S213 2. NCEP Expert Panel. Circulation 2004;110:227 Current Interpretive Data was last revised on 2018. HDL 55 >=40 mg/dL [facility] FISHER Comment: Interpretive Data Ages < or = 19 years ??Acceptable: ? >45 mg/dL ??Borderline low: ?? 40-45 mg/dL ??Low: ? <40 mg/dL Ages > or = 20 years ??Desirable: ?>or= 60 mg/dL ??Low: ? <40 mg/dL Literature References: 1. Expert Panel on Integrated Guidelines for Cardiovascular Health and Risk Reduction in Children and Adolescents. Pediatrics 2011;128:S213 2. NCEP Expert Panel. Circulation 2004;110:227 Current Interpretive Data was last revised on 2018. LDL, calculated 110 <=129 mg/dL [facility]IN FISHER Comment: Interpretive Data Ages < or = 19 years ??Acceptable: ? <110 mg/dL ??Borderline high: ??110-129 mg/dL ??High: ?>or= 130 mg/dL Ages > or = 20 years ??Optimal: ? <100 mg/dL ??Near optimal: ?100-129 mg/dL ??Borderline high: ?? 130-159 mg/dL ??High: ?>160 mg/dL Literature References: 1. Expert Panel on Integrated Guidelines for Cardiovascular Health and Risk Reduction in Children and Adolescents. Pediatrics 2011;128:S213 2. NCEP Expert Panel. Circulation 2004;110:227 Current Interpretive Data was last revised on 2018. Non-HDL Cholesterol 127 mg/dL [facility] Comment: Interpretive Data Ages < or = 19 years ??Acceptable: ?<120 mg/dL ??Borderline high: ??120-144 mg/dL ??High: ?>145 mg/dL Ages > or = 20 years ??When triglycerides are >200 mg/dL, Non-HDL cholesterol is a secondary target of ? therapy with treatment goals that are 30 mg/dL greater than the LDL cholesterol target. ? Literature References: 1. Expert Panel on Integrated Guidelines for Cardiovascular Health and Risk Reduction in Children and Adolescents. Pediatrics 2011;128:S213 2. NCEP Expert Panel. Circulation 2004;110:227 Current Interpretive Data was last revised on 2018. Chol/HDL ratio 3 [facility] Blood 12/08/2023 4:10 AM RAG PRODUCTION WORKER 12/08/2023 5:09 AM RAG PRODUCTION WORKER us Bernard Casillas MD LAB BLOOD ORDERABLES Final R esult Performing Organization Address [facility] Co fl Phone Number MARVIN FISHER [phone] [place] [address] * POCT glucose (12/08/2023 12:04 AM RAG PRODUCTION WORKER) Glucose, POC 105 70 - 199 mg/dL [facility] Blood 12/08/2023 12:0 4 AM RAG PRODUCTION WORKER 12/08/2023 12:04 AM RAG PRODUCTION WORKER us Maxi Carrion MD LAB POCT ORDERABLES - DE VICE Final Result Performing Organization Address [facility] Co de Phone Number MARVIN [phone] Department [place] [address] * Critical Care (12/07/2023 10:02 PM RAG PRODUCTION WORKER) Narrative Bernard Casillas MD - 12/07/2023 10:02 PM RAG PRODUCTION WORKER Bernard Casillas MD ? 12/08/2023 ??3:39 AM Critical Care Performed by: Bernard Casillas MD Authorized by: Bernard Casillas MD ?? CRITICAL CARE: ??Team: ??PHILLIPNE ??Shift: ??PM ??Level of Billing: ??Critical Care ??My time spent with this patient was 30 minutes: Critical Provider Statement: I have seen and examined the patient on this day of service. I have reviewed and confirmed the history, physical exam, laboratory and radiologic data as documented in the signed ICU note. I have reviewed and discussed my treatment plan with the ICU team and other medical/solutions sales consultant staff, making frequent assessments and decisions regarding this patient's complex medical care. Critical Care time was exclusive of time spent performing separately billed procedures, treating other patients, and teaching. This time was in addition to and separate from critical care provided by other practitioners in my group on this day of service. Critical Care was necessary to treat or prevent imminent or life-threatening deterioration of the following conditions: ? Acute cerebrovascular accident (CVA) ??This time was spent by me doing the following: ? Acute stroke management and Frequent neurologic exams ?? I spent time reviewing and interpreting data from bedside monitors, laboratory results, and imaging us Bernard Casillas MD IN CLINIC/BEDSIDE ORDERABLES Final Result * eGFR (12/07/2023 8:45 PM RAG PRODUCTION WORKER) [facility] eGFR 52 mL/min/1. 73 m2 [facility] Comment: Interpretive Data Reference Interval Normal ?>/= [...] interpretive data was last reviewed 2021. Blood 12/07/2023 8:45 PM RAG PRODUCTION WORKER 12/07/2023 9:08 PM RAG PRODUCTION WORKER us Maxi Carrion MD LAB BLOOD ORDERABLES Fin al Result [facility] [address] Department [place] [address] * Differential, auto (12/07/2023 8:45 PM RAG PRODUCTION WORKER) Neutrophil abs 4.4 1.5 - 6.5 K/cumm [facility] Imm gran abs 0.0 0.0 - 0.1 K/cumm [facility] Lymphocyte abs 2.4 0.8 - 3.3 K/cumm [facility] Monocyte abs 0.7 0.2 - 0.8 K/cumm [facility] Eosinophil abs 0.3 0.0 - 0.5 K[facility] Basophil abs 0.1 0.0 - 0.1 K/cumm [facility] Neutrophil pct 55.4 % [facility] Comment: Interpretive Data Percent cell count reference ranges are not reported, since discordance with absolute values may lead to misinterpretation of CBC data. Current Interpretive Data was last revised on 2018. Imm gran pct 0.3 % [facility] Comment: Interpretive Data Percent cell count reference ranges are not reported, since discordance with absolute values may lead to misinterpretation of CBC data. Current Interpretive Data was last revised on 2018. Lymphocyte pct 30.7 % [facility] Comment: Interpretive Data Percent cell count reference ranges are not reported, since discordance with absolute values may lead to misinterpretation of CBC data. Current Interpretive Data was last revised on 2018. Monocyte pct 8.8 % [facility] Comment: Interpretive Data Percent cell count reference ranges are not reported, since discordance with absolute values may lead to misinterpretation of CBC data. Current Interpretive Data was last revised on 2018. Eosinophil pct 4.2 % [facility] Comment: Interpretive Data Percent cell count reference ranges are not reported, since discordance with absolute values may lead to misinterpretation of CBC data. Current Interpretive Data was last revised on 2018. Basophil pct 0.6 % [facility] Comment: Interpretive Data Percent cell count reference ranges are not reported, since discordance with absolute values may lead to misinterpretation of CBC data. Current Interpretive Data was last revised on 2018. Blood 12/07/2023 8:45 PM RAG PRODUCTION WORKER 12/07/2023 8:56 PM RAG PRODUCTION WORKER Maxi Carrion MD LAB BLOOD ORDERABLES Fin al Result Performing Organization Address City/[facility]/ZIP Co de Phone Number [facility] [id number] [place] [address] * Calcium, ionized, whole blood (12/07/2023 8:45 PM RAG PRODUCTION WORKER) Ca, ionized, bld 4.80 4.50 - 5.10 mg/dL [facility] Blood 12/07/2023 8:45 PM RAG PRODUCTION WORKER 12/07/2023 9:06 PM RAG PRODUCTION WORKER Maxi Carrion MD LAB BLOOD ORDERABLES Fin al Result [facility] [address] [place] [address] * (ABNORMAL) Comprehensive metabolic panel (12/07/2023 8:45 PM RAG PRODUCTION WORKER) Sodium 137 135 - 145 mmol/L [facility] Potassium, pl 4.1 3.3 - 4.9 mmol/L [facility] Chloride 103 97 - 110 mmol/L [facility] CO2 27 22 - 32 mmol/L [facility] Anion gap 7 2 - 15 mmol/L [facility] BUN 16 6 - 25 mg/dL [facility] Creatinine 1.39(H) 0.80 - 1.30 mg/dL [facility] Glucose [...] - 1.2 mg/dL [facility] Protein, pl 6.7 6.5 - 8.5 g/dL [facility] Albumin 3.6 3.5 - 5.0 g/dL [facility] Alk phos 107 40 - 130 Units/L [facility] ALT 13 7 - 55 Units/L [facility] AST 20 10 - 50 Units/L [facility] Blood 12/07/2023 8:45 PM RAG PRODUCTION WORKER 12/07/2023 9:06 PM RAG PRODUCTION WORKER Maxi Carrion MD LAB BLOOD ORDERABLES Fin al Result MARVIN [address] Department [place] [address] * Magnesium (12/07/2023 8:45 PM RAG PRODUCTION WORKER) Magnesium 2.0 1.4 - 2.5 mg/dL [facility] Blood 12/07/2023 8:45 PM RAG PRODUCTION WORKER 12/07/2023 9:06 PM RAG PRODUCTION WORKER Maxi Carrion MD LAB BLOOD ORDERABLES Fin al Result Performing Organization Address [facility] de Phone Number MARVIN [phone] [facility] [place] [address] * Phosphorus (12/07/2023 8:45 PM RAG PRODUCTION WORKER) Phosphorus, pl 3.1 2.3 - 4.5 mg/dL [facility] Blood 12/07/2023 8:45 PM RAG PRODUCTION WORKER 12/07/2023 9:06 PM RAG PRODUCTION WORKER Maxi Carrion MD LAB BLOOD ORDERABLES Fin al Result Performing Organization Address [facility] de Phone Number [facility] [address] [facility] [place] [address] * (ABNORMAL) CBC with auto differential (12/07/2023 8:45 PM RAG PRODUCTION WORKER) Pathologist [facility] [place] WBC 7.9 3.8 - 9.9 K/cumm [facility] Hgb 13.1 13.0 - 17.5 g/dL [facility] Hct 39.7 38.9 - 50.3 % [facility] Plt 224 150 - 400 K/cumm [facility] MPV 10.3 9.1 - 12.3 fL [facility] RBC 4.04(L) 4.30 - 5.80 M/cumm [facility] MCV 98.3(H) 81.3 - 96.4 fL [facility] MCH 32.4 27.1 - 33.3 pg [facility] MCHC 33.0 32.3 - 35.7 g/dL [facility] RDW CV 13.3 11.1 - 14.9 % [facility] RDW SD 48.4(H) 35.7 - 48.1 fL [facility] NRBC abs 0.00 0.00 - 0.01 K/cumm [facility] Blood 12/07/2023 8:45 PM RAG PRODUCTION WORKER 12/07/2023 8:56 PM RAG PRODUCTION WORKER Maxi Carrion MD LAB BLOOD ORDERABLES Fin al Result Performing Organization Address [facility] de Phone Number MARVIN [phone] Department [place] [address] * Lipid panel (12/07/2023 8:45 PM RAG PRODUCTION WORKER) Cholesterol 186 30 - 199 mg/dL [facility] Comment: Interpretive Data Ages < or = 19 years ??Acceptable: ? <170 mg/dL ??Borderline high: ??170-199 mg/dL ??High: ? >or= 200 mg/dL Ages > or = 20 years ??Desirable: ?<200 mg/dL ??Borderline high: ??200-239 mg/dL ??High: ? >or= 240 mg/dL Literature References: 1. Expert Panel on Integrated Guidelines for Cardiovascular Health and Risk Reduction in Children and Adolescents. Pediatrics 2011;128:S213 2. NCEP Expert Panel. Circulation 2004;110:227 Current Interpretive Data was last revised on 2018. Triglycerides 69 <=149 mg/dL [facility] FISHER Comment: Interpretive Data Ages < or = 9 years ??Acceptable: ? <75 mg/dL ??Borderline high: ??75-99 mg/dL ??High: ? >or= 100 mg/dL Ages 10 to 20 years ??Acceptable: ? <90 mg/dL ??Borderline high: ??90-129 mg/dL ??High: ? >or= 130 mg/dL Ages > or = 20 years ??Desirable: ?<150 mg/dL ??Borderline high: ??150-199 mg/dL ??High: ? 200-499 mg/dL ?Very high: ?? >or= 499 mg/dL Literature References: 1. Expert Panel on Integrated Guidelines for Cardiovascular Health and Risk Reduction in Children and Adolescents. Pediatrics 2011;128:S213 2. NCEP Expert Panel. Circulation 2004;110:227 Current Interpretive Data was last revised on 2018. HDL 59 >=40 mg/dL [facility] Comment: Interpretive Data Ages < or = 19 years ??Acceptable: ? >45 mg/dL ??Borderline low: ?? 40-45 mg/dL ??Low: ? <40 mg/dL Ages > or = 20 years ??Desirable: ?>or= 60 mg/dL ??Low: ? <40 mg/dL Literature References: 1. Expert Panel on Integrated Guidelines for Cardiovascular Health and Risk Reduction in Children and Adolescents. Pediatrics 2011;128:S213 2. NCEP Expert Panel. Circulation 2004;110:227 Current Interpretive Data was last revised on 2018. LDL, calculated 113 <=129 mg/dL [facility] Comment: Interpretive Data Ages < or = 19 years ??Acceptable: ? <110 mg/dL ??Borderline high: ??110-129 mg/dL ??High: ?>or= 130 mg/dL Ages > or = 20 years ??Optimal: ? <100 mg/dL ??Near optimal: ?100-129 mg/dL ??Borderline high: ?? 130-159 mg/dL ??High: ?>160 mg/dL Literature References: 1. Expert Panel on Integrated Guidelines for Cardiovascular Health and Risk Reduction in Children and Adolescents. Pediatrics 2011;128:S213 2. NCEP Expert Panel. Circulation 2004;110:227 Current Interpretive Data was last revised on 2018. Non-HDL Cholesterol 127 mg/dL [facility] Comment: Interpretive Data Ages < or = 19 years ??Acceptable: ?<120 mg/dL ??Borderline high: ??120-144 mg/dL ??High: ?>145 mg/dL Ages > or = 20 years ??When triglycerides are >200 mg/dL, Non-HDL cholesterol is a secondary target of ? therapy with treatment goals that are 30 mg/dL greater than the LDL cholesterol target. ? Literature References: 1. Expert Panel on Integrated Guidelines for Cardiovascular Health and Risk Reduction in Children and Adolescents. Pediatrics 2011;128:S213 2. NCEP Expert Panel. Circulation 2004;110:227 Current Interpretive Data was last revised on 2018. Chol/HDL ratio 3 [facility] Blood 12/07/2023 8:45 PM RAG PRODUCTION WORKER 12/07/2023 9:06 PM RAG PRODUCTION WORKER Maxi Carrion MD LAB BLOOD ORDERABLES Fin al Result Performing Organization Address [facility] de Phone Number [facility] [address] [place] [address] * Hemoglobin A1c (12/07/2023 8:45 PM RAG PRODUCTION WORKER) Hgb A1C 5.6 4.0 - 5.6 % [facility] Estimated Average Glucose 114 mg/dL [facility] Comment: The ADA recommends reporting an estimated Average Glucose (eAG) with all Hemoglobin A1c results using the equation derived from a study of 507 normal and diabetic adults. ??Minority populations were underrepresented and children were not included. ?? (Diabetes Care 31:2948-6707, 2008). ??The eAG is not equivalent to a fasting glucose. Blood 12/07/2023 8:45 PM RAG PRODUCTION WORKER 12/07/2023 8:56 PM RAG PRODUCTION WORKER Maxi Carrion MD LAB BLOOD ORDERABLES Fin al Result Performing Organization Address [facility] de Phone Number [facility] [address] [place] [address] * (ABNORMAL) Fibrinogen (12/07/2023 8:45 PM RAG PRODUCTION WORKER) Fibrinogen 438(H) 170 - 400 mg/dL [facility] Blood 12/07/2023 8:45 PM RAG PRODUCTION WORKER 12/07/2023 8:57 PM RAG PRODUCTION WORKER Maxi Carrion MD LAB BLOOD ORDERABLES Fin al Result Performing Organization Address [facility] de Phone Number [facility] [address] [place] [place] [address] * POCT glucose (12/07/2023 7:57 PM RAG PRODUCTION WORKER) Pathologist [facility] [place] Glucose, POC 102 70 - 199 mg/dL [facility] Blood 12/07/2023 7:57 PM RAG PRODUCTION WORKER 12/07/2023 7:57 PM RAG PRODUCTION WORKER Maxi Carrion MD LAB POCT ORDERABLES - DE VICE Final Result Performing Organization Address [facility] Co de Phone Number [facility] [address] [place] [address] * (ABNORMAL) Troponin T high-sensitivity 6-hour (12/07/2023 7:34 PM RAG PRODUCTION WORKER) [facility] Trop T hs 24(H) <=22 ng/L [facility] Comment: Slight hemolysis may result in decreased troponin measurement. Consider recollection. Interpretive Data For further hscTnT resources including the diagnostic algorithm and an aid in interpretation, copy and paste this link: https://nrl.testcatalog.org/show/hsTrop Current Interpretive Data last revised 2020. Trop T hs delta 2 ng/L [facility] Trop T hs interp Insignificant [facility] Blood 12/07/2023 7:34 PM RAG PRODUCTION WORKER 12/07/2023 7:41 PM RAG PRODUCTION WORKER Severino Mejía DO LAB BLOOD ORDERABLES Final Res ult Performing Organization Address [facility]/ZIP Co de Phone Number [facility] [address] Department [place] [address] * Infection Prevention MRSA Only (Staphylococcus aureus) PCR Nasal (12/07/2023 5:58 PM RAG PRODUCTION WORKER) [facility] PCR Scrn, Methicillin resistant Staphylococcus aureus (MRSA) Not Detected Not Detected [facility] Comment: Interpretive Data Testing performed using Nucleic Acid Amplification with the Novopyxis Xpert MRSA NxG Assay. This assay detects target DNA from mecA, mecC and the SCCmec insertion site of Staphylococcus aureus using Real-Time PCR and has been cleared by the FDA. Performance characteristics have been verified by the [facility]. Current Interpretive Data was last revised on 2023 Nasal 12/07/2023 5:58 PM RAG PRODUCTION WORKER 12/07/2023 6:20 PM RAG PRODUCTION WORKER Maxi Carrion MD LAB MICROBIOLOGY - GENER AL ORDERABLES Final Result Performing Organization Address City/[facility]/ZIP Co de Phone Number MARVIN [address] Department [place] [address] * Troponin T high-sensitivity 4-hour (12/07/2023 5:58 PM RAG PRODUCTION WORKER) Trop T hs 18 <=22 ng/L [facility] Comment: Interpretive Data For further hscTnT resources including the diagnostic algorithm and an aid in interpretation, copy and paste this link: https://nrl.testcatalog.org/show/hsTrop Current Interpretive Data last revised 2020. Trop T hs delta -4 ng/L [facility] Trop T hs interp Insignificant [facility] Blood 12/07/2023 5:58 PM RAG PRODUCTION WORKER 12/07/2023 6:19 PM RAG PRODUCTION WORKER Severino Mejía DO LAB BLOOD ORDERABLES Final Res ult Performing Organization Address [facility] Co de Phone Number ANYDEE FISHER [phone] Department of Laboratories [place] [address] * ECG 12 lead (12/07/2023 5:20 PM RAG PRODUCTION WORKER) 12/07/2023 5:20 PM RAG PRODUCTION WORKER Narrative [facility] - 12/08/2023 5:25 AM RAG PRODUCTION WORKER Vent Rate: 53 bpm RR Interval: 1114 msec MT Interval: 183 msec QRS Duration: 84 msec QT Interval: 420 msec QTC Interval: 404 msec P-R-T [place]: 40 - -10 - 21 degrees IMPRESSION: SINUS BRADYCARDIA MINIMAL VOLTAGE CRITERIA FOR LVH, CONSIDER NORMAL VARIANT ??[MEETS CRITERIA IN ONE OF: R(aVL), S(V1), R(V5), R(V5/V6)+S(V1)] BORDERLINE ECG Compared to prior EKG, PVCs are no longer present Electronically Signed By: Jasen Tran MD Maxi Carrion MD ECG ORDERABLES Final Re sult Performing Organization Address [facility]/ZIP Co de Phone Number [facility] * POCT glucose (12/07/2023 4:52 PM RAG PRODUCTION WORKER) Glucose, POC 97 70 - 199 mg/dL [facility] Blood 12/07/2023 4:52 PM RAG PRODUCTION WORKER 12/07/2023 4:52 PM RAG PRODUCTION WORKER Maxi Carrion MD LAB POCT ORDERABLES - DE VICE Final Result Performing Organization Address [facility] Co de Phone Number [facility] [id number] [place] [address] * (ABNORMAL) Urinalysis, microscopic only (12/07/2023 3:22 PM RAG PRODUCTION WORKER) WBC, ur 6-10(A) 0 - 5 /HPF [facility] RBC, ur 3-5(A) 0 - 2 /HPF [facility] Mucous, ur Present(A) [facility] Culture Reflex Comment Reflex conditions for urine culture (WBC >10) not met. [facility] Urine 12/07/2023 3:22 PM RAG PRODUCTION WORKER 12/07/2023 3:25 PM RAG PRODUCTION WORKER us Severino Mejía DO LAB URINE ORDERABLES Final Res ult Performing Organization Address [facility] Co de Phone Number [facility] [phone] [place] [address] * (ABNORMAL) Urinalysis reflex to microscopic and culture Urine (12/07/2023 3:22 PM RAG PRODUCTION WORKER) Color, ur Straw Yellow [facility] Clarity, ur Clear Clear [facility] Specific gravity, ur 1.038(H) 1.003 - 1.030 [facility] pH, urine 6.0 [facility] Comment: Interpretive Data ? Urine pH is affected by diet, medications, systemic acid-base disturbances, and renal tubular function. ??pH may affect urinary stone formation. ??For example, urine pH below 6.0 may help reduce the tendency for calcium phosphate stones and pH greater than 6.0 may reduce the tendency for uric acid stone formation. Source: [facility] Current Interpretive Data was last revised on 2017 Protein, ur ql Negative Negative [facility] Glucose, ur ql Negative Negative [facility] Ketones, ur Negative Negative [facility] Bilirubin, ur Negative Negative [facility] Blood, ur Negative Negative [facility] Urobilinogen, ur <2.0 <2.0 mg/dL [facility] Nitrite, ur Negative Negative [facility] Leukocyte esterase, ur 2+(A) Negative [facility] UA reflex comment Reflex to microscopic UA will be performed. MARVIN Urine 12/07/2023 3:22 PM RAG PRODUCTION WORKER 12/07/2023 3:25 PM RAG PRODUCTION WORKER Severino Mejía DO LAB MICROBIOLOGY - GENERAL ORD ERABLES Final Result [facility] [address] Department [place] [address] * (ABNORMAL) Troponin T high-sensitivity 2-hour (12/07/2023 2:50 PM RAG PRODUCTION WORKER) Trop T hs 24(H) <=22 ng/L MARVIN Comment: Interpretive Data For further hscTnT resources including the diagnostic algorithm and an aid in interpretation, copy and paste this link: https://nrl.testcatalog.org/show/hsTrop Current Interpretive Data last revised 2020. Trop T hs delta See Comment ng/L MARVIN Comment:Inappropriate collec tion time to report a delta. Trop T hs pct delta See Comment % MARVIN Comment:Inappropriate collec tion time to report a delta. Trop T hs interp See Comment MARVIN Comment:Inappropriate collec tion time to report a delta. Blood 12/07/2023 2:50 PM RAG PRODUCTION WORKER 12/07/2023 2:54 PM RAG PRODUCTION WORKER Severino Mejía DO LAB BLOOD ORDERABLES Final Res ult MARVIN FISHER [id number] [employer] [place] [address] * eGFR (12/07/2023 1:30 PM RAG PRODUCTION WORKER) eGFR 47 mL/min/1. 73 m2 [facility] FISHER Comment: Interpretive Data Reference Interval Normal ?>/= [...] interpretive data was last reviewed 2021. Blood 12/07/2023 1:30 PM RAG PRODUCTION WORKER 12/07/2023 1:36 PM RAG PRODUCTION WORKER Severino Mejía DO LAB BLOOD ORDERABLES Final Res ult [facility] FISHER [id number] [facility] [place] [address] * Differential, auto (12/07/2023 1:30 PM RAG PRODUCTION WORKER) Neutrophil abs 3.6 1.5 - 6.5 K/cumm C[facility]ER Imm gran abs 0.0 0.0 - 0.1 K/cumm [facility] Lymphocyte abs 2.2 0.8 - 3.3 K/cumm [facility] Monocyte abs 0.8 0.2 - 0.8 K/cumm [facility] Eosinophil abs 0.3 0.0 - 0.5 K/cumm [facility] Basophil abs 0.1 0.0 - 0.1 K/cumm [facility] Neutrophil pct 52.3 % [facility] Comment: Interpretive Data Percent cell count reference ranges are not reported, since discordance with absolute values may lead to misinterpretation of CBC data. Current Interpretive Data was last revised on 2018. Imm gran pct 0.1 % [facility] Comment: Interpretive Data Percent cell count reference ranges are not reported, since discordance with absolute values may lead to misinterpretation of CBC data. Current Interpretive Data was last revised on 2018. Lymphocyte pct 31.7 % [facility] Comment: Interpretive Data Percent cell count reference ranges are not reported, since discordance with absolute values may lead to misinterpretation of CBC data. Current Interpretive Data was last revised on 2018. Monocyte pct 11.0 % [facility] Comment: Interpretive Data Percent cell count reference ranges are not reported, since discordance with absolute values may lead to misinterpretation of CBC data. Current Interpretive Data was last revised on 2018. Eosinophil pct 4.2 % [facility] Comment: Interpretive Data Percent cell count reference ranges are not reported, since discordance with absolute values may lead to misinterpretation of CBC data. Current Interpretive Data was last revised on 2018. Basophil pct 0.7 % [facility] Comment: Interpretive Data Percent cell count reference ranges are not reported, since discordance with absolute values may lead to misinterpretation of CBC data. Current Interpretive Data was last revised on 2018. Blood 12/07/2023 1:30 PM RAG PRODUCTION WORKER 12/07/2023 1:35 PM RAG PRODUCTION WORKER us Severino Mejía DO LAB BLOOD ORDERABLES Final Res ult Performing Organization Address [facility] Co de Phone Number [facility] [phone] [facility] [place] [address] * Troponin T high-sensitivity series (baseline, 2hr, 4hr, 6hr) (12/07/2023 1:30 PM RAG PRODUCTION WORKER) Trop T hs 22 <=22 ng/L MARVIN Comment: Slight hemolysis may result in decreased troponin measurement. Consider recollection. Interpretive Data For further hscTnT resources including the diagnostic algorithm and an aid in interpretation, copy and paste this link: https://nrl.testcatalog.org/show/hsTrop Current Interpretive Data last revised 2020. Blood 12/07/2023 1:30 PM RAG PRODUCTION WORKER 12/07/2023 1:35 PM RAG PRODUCTION WORKER Severino Mejía DO LAB BLOOD ORDERABLES Final Res ult Performing Organization Address [facility] Co de Phone Number [facility] [phone] [facility] [place] [address] * aPTT (12/07/2023 1:30 PM RAG PRODUCTION WORKER) aPTT 32 28 - 38 sec MARVIN Comment: Interpretive Data Heparin therapeutic range: 66.0 - 100.0 seconds. Range based on correlation with therapeutic heparin activity range of 0.3 - 0.7 Units/mL. Current interpretive data was last revised on 2023. Blood (Blood, Venous) 12/07/2023 1:30 PM RAG PRODUCTION WORKER 12/07/2023 1:35 PM RAG PRODUCTION WORKER Narrative MARVIN - 12/07/2023 1:55 PM RAG PRODUCTION WORKER Potential stroke patient. Severino Mejía DO LAB BLOOD ORDERABLES Final Res ult Performing Organization Address [facility] Co de Phone Number MARVIN [phone] [facility] [place] [address] * Protime-INR (12/07/2023 1:30 PM RAG PRODUCTION WORKER) PT 11.8 10.3 - 13.7 sec [facility] INR 1.04 0.90 - 1.20 [facility] Comment: Interpretive data Oral anticoagulant therapeutic ranges: Venous thromboembolism prophylaxis or treatment: 2.0-3.0 CARDIOLOGY Standard range: 2.0-3.0 High-intensity range: 2.5-3.5 Refer to indication-specific guidelines for appropriate target ranges for prosthetic heart valve replacement. Current interpretive data was last revised on 2019. Blood 12/07/2023 1:30 PM RAG PRODUCTION WORKER 12/07/2023 1:35 PM RAG PRODUCTION WORKER us Severino Mejía DO LAB BLOOD ORDERABLES Final Res ult [facility] [address] Department [place] [address] * (ABNORMAL) Comprehensive metabolic panel (12/07/2023 1:30 PM RAG PRODUCTION WORKER) Sodium 139 135 - 145 mmol/L [facility] Potassium, pl 4.8 3.3 - 4.9 mmol/L [facility] Comment:Hemolysis present. R esults may be affected. Chloride 105 97 - 110 mmol/L [facility] CO2 24 22 - 32 mmol/L [facility] Anion gap 10 2 - 15 mmol/L [facility] BUN 19 6 - 25 mg/dL [facility] Creatinine 1.50(H) 0.80 - 1.30 mg/dL [facility] Glucose 115 70 - 199 mg/dL [facility] Comment: Interpretive Data Fasting glucose >/= 126 [...] classification and Diagnosis of Diabetes Diabetes Care 2022; 46: S19-S40. Current interpretive data was last revised 2022. Calcium 8.7 8.5 - 10.3 mg/dL [facility] Bilirubin, total 0.2 0.1 - 1.2 mg/dL [facility] Protein, pl 6.2(L) 6.5 - 8.5 g/dL [facility] Albumin 3.4(L) 3.5 - 5.0 g/dL [facility] Alk phos 93 40 - 130 Units/L [facility] ALT 14 7 - 55 Units/L [facility] AST 29 10 - 50 Units/L [facility] Comment:Hemolysis present. R esults may be affected. Blood (Blood, Venous) 12/07/2023 1:30 PM RAG PRODUCTION WORKER 12/07/2023 1:35 PM RAG PRODUCTION WORKER Narrative [facility] - 12/07/2023 2:06 PM RAG PRODUCTION WORKER Potential Stroke Patient us Severino Mejía DO LAB [place]LOOD [place] [address] Department [place] [address] * (ABNORMAL) CBC with auto differential (12/07/2023 1:30 PM RAG PRODUCTION WORKER) WBC 6.9 3.8 - 9.9 K/cumm [facility] Hgb 12.5(L) 13.0 - 17.5 g/dL [facility] Hct 37.7(L) 38.9 - 50.3 % [facility] Plt 216 150 - 400 K/cumm [facility] MPV 10.3 9.1 - 12.3 fL [facility] RBC 3.81(L) 4.30 - 5.80 M/cumm [facility] MCV 99.0(H) 81.3 - 96.4 fL [facility] MCH 32.8 27.1 - 33.3 pg [facility] MCHC 33.2 32.3 - 35.7 g/dL [facility] RDW CV 13.3 11.1 - 14.9 % [facility] RDW SD 48.4(H) 35.7 - 48.1 fL [facility] NRBC abs 0.00 0.00 - 0.01 K/cumm [facility] Blood (Blood, Venous) 12/07/2023 1:30 PM RAG PRODUCTION WORKER 12/07/2023 1:35 PM RAG PRODUCTION WORKER Narrative MARVIN - 12/07/2023 1:41 PM RAG PRODUCTION WORKER Potential Stroke Patient Severino Mejía DO LAB BLOOD ORDERABLES Final Res ult Performing Organization Address [facility]/ZIP Co de Phone Number [facility] [address] Department [place] [address] * ECG 12 lead (12/07/2023 1:21 PM RAG PRODUCTION WORKER) 12/07/2023 1:21 PM RAG PRODUCTION WORKER Narrative [facility] - 12/08/2023 5:25 AM RAG PRODUCTION WORKER Vent Rate: 72 bpm RR Interval: 826 msec MT Interval: 183 msec QRS Duration: 88 msec QT Interval: 384 msec QTC Interval: 408 msec P-R-T [place]: 54 - -7 - 31 degrees IMPRESSION: SINUS RHYTHM WITH OCCASIONAL VENTRICULAR PREMATURE COMPLEXES BORDERLINE ECG NO CHANGE FROM PREVIOUS TRACING NOTED Electronically Signed By: Jasen Tran MD Severino Mejía DO ECG ORDERABLES Final Result Performing Organization Address [facility] de Phone Number [employer] [facility] * CTA/CTP Rapid Stroke (C) (12/07/2023 1:16 PM RAG PRODUCTION WORKER) Anatomical Region Laterality Modality Head and Neck N/A Computed Tomogra phy 12/07/2023 1:32 PM RAG PRODUCTION WORKER Impressions 12/07/2023 1:32 PM RAG PRODUCTION WORKER No CT evidence of stroke. No significant carotid artery stenosis. ??There is also of the noncontrast CT of the brain called emergency room physician at 1:10 PM, results of the CT angiogram rapid stroke program called to the emergency room physician at 1:30 PM. Electronically signed by: Beka Draper M.D. Narrative 12/07/2023 1:32 PM RAG PRODUCTION WORKER EXAMINATION: Computed tomography angiography (CTA) of the head without and with contrast; Computed tomography angiography (CTA) of the neck with contrast. CT perfusion imaging of the head with contrast HISTORY: 78-year-old man stroke symptoms left-sided weakness, vascular disease, history of seizures. TECHNIQUE: Computed tomography of the head was performed without contrast according to standard protocol. Computed tomographic angiography was obtained from the level of the aortic arch to the vertex following the uneventful administration of intravenous contrast according to hyperacute stroke protocol. 3D images were generated on a dedicated workstation. CT perfusion of the brain was performed with intravenous contrast using a separate data acquisition. The data was transmitted to a separate workstation for processing by RAPID software ([employer] Well[employer]) to produce automated calculations of the estimated cerebral blood flow and Tmax. Contrast information: 120 mL Optiray-350 COMPARISON: CT head dated 10/03/2022. FINDINGS: HEAD CT FINDINGS: There is no acute intracranial hemorrhage. There is no noncontrast evidence of acute stroke. There is no vascular hyperdensity of the M1 segments or basilar artery. Moderate periventricular lucencies representing chronic microvascular disease similar to previous.. There are no lacunar infarcts. Mild involutional changes stable since previous.. Basal ganglia calcifications.. There is no mass effect or midline shift. ??Atherosclerotic calcification cavernous carotid arteries. ANGIOGRAPHIC FINDINGS: The visualized aortic arch appears normal with normal configuration of the great vessels. There is no significant stenosis of the origins of the great vessels. There is no geographic area of vascular paucity in the brain. Left anterior circulation: L CCA: no occlusion or significant stenosis L carotid bifurcation: no occlusion or significant stenosis L ICA proximal: no occlusion or significant stenosis L ICA distal: no occlusion or significant stenosis L ICA terminus: no occlusion or significant stenosis L M1: no occlusion or significant stenosis L M2 branches: no occlusion or significant stenosis L A2: no occlusion or significant stenosis Right anterior circulation: R CCA: no occlusion or significant stenosis R carotid bifurcation: no occlusion or significant stenosis R ICA proximal: no occlusion or significant stenosis R ICA distal: no occlusion or significant stenosis R ICA terminus: no occlusion or significant stenosis R M1: no occlusion or significant stenosis R M2 branches: no occlusion or significant stenosis R A2: no occlusion or significant stenosis Posterior circulation: L Vertebral Artery: no occlusion or significant stenosis R Vertebral Artery: no occlusion or significant stenosis Basilar Artery: no occlusion or significant stenosis L FORGE SHOP SUPERVISOR: no occlusion or significant stenosis R FORGE SHOP SUPERVISOR: no occlusion or significant stenosis Venous sinuses appear to be patent. No cerebral aneurysm is seen. There is no evidence for an arteriovenous malformation. There is no suspicious cervical lymphadenopathy. There is no significant cervical spondylosis. Limited views of the lung apices are normal. CT Perfusion: Estimated ischemic core volume (rCBF < 0.3): 0 mL Estimated hypoperfusion volume (Tmax > 6 sec): 0 mL Procedure Note Beka Draper MD - 12/07/2023 EXAMINATION: Computed tomography angiography (CTA) of the head without and with contrast; Computed tomography angiography (CTA) of the neck with contrast. CT perfusion imaging of the head with contrast HISTORY: 78-year-old man stroke symptoms left-sided weakness, vascular disease, history of seizures. TECHNIQUE: Computed tomography of the head was performed without contrast according to standard protocol. Computed tomographic angiography was obtained from the level of the aortic arch to the vertex following the uneventful administration of intravenous contrast according to hyperacute stroke protocol. 3D images were generated on a dedicated workstation. CT perfusion of the brain was performed with intravenous contrast using a separate data acquisition. The data was transmitted to a separate workstation for processing by RAPID software ([employer] Wellen) to produce automated calculations of the estimated cerebral blood flow and Tmax. Contrast information: 120 mL Optiray-350 COMPARISON: CT head dated 10/03/2022. FINDINGS: HEAD CT FINDINGS: There is no acute intracranial hemorrhage. There is no noncontrast evidence of acute stroke. There is no vascular hyperdensity of the M1 segments or basilar artery. Moderate periventricular lucencies representing chronic microvascular disease similar to previous.. There are no lacunar infarcts. Mild involutional changes stable since previous.. Basal ganglia calcifications.. There is no mass effect or midline shift. Atherosclerotic calcification cavernous carotid arteries. ANGIOGRAPHIC FINDINGS: The visualized aortic arch appears normal with normal configuration of the great vessels. There is no significant stenosis of the origins of the great vessels. There is no geographic area of vascular paucity in the brain. Left anterior circulation: L CCA: no occlusion or significant stenosis L carotid bifurcation: no occlusion or significant stenosis L ICA proximal: no occlusion or significant stenosis L ICA distal: no occlusion or significant stenosis L ICA terminus: no occlusion or significant stenosis L M1: no occlusion or significant stenosis L M2 branches: no occlusion or significant stenosis L A2: no occlusion or significant stenosis Right anterior circulation: R CCA: no occlusion or significant stenosis R carotid bifurcation: no occlusion or significant stenosis R ICA proximal: no occlusion or significant stenosis R ICA distal: no occlusion or significant stenosis R ICA terminus: no occlusion or significant stenosis R M1: no occlusion or significant stenosis R M2 branches: no occlusion or significant stenosis R A2: no occlusion or significant stenosis Posterior circulation: L Vertebral Artery: no occlusion or significant stenosis R Vertebral Artery: no occlusion or significant stenosis Basilar Artery: no occlusion or significant stenosis L FORGE SHOP SUPERVISOR: no occlusion or significant stenosis R FORGE SHOP SUPERVISOR: no occlusion or significant stenosis Venous sinuses appear to be patent. No cerebral aneurysm is seen. There is no evidence for an arteriovenous malformation. There is no suspicious cervical lymphadenopathy. There is no significant cervical spondylosis. Limited views of the lung apices are normal. CT Perfusion: Estimated ischemic core volume (rCBF < 0.3): 0 mL Estimated hypoperfusion volume (Tmax > 6 sec): 0 mL IMPRESSION: No CT evidence of stroke. No significant carotid artery stenosis. There is also of the noncontrast CT of the brain called emergency room physician at 1:10 PM, results of the CT angiogram rapid stroke program called to the emergency room physician at 1:30 PM. Electronically signed by: Beka Draper M.D. Severino Mejía DO IMG CT PROCEDURES Final Result * [facility] CRITICAL CARE ILL/INJURED PATIENT INIT 30-74 MIN (12/07/2023 1:02 PM RAG PRODUCTION WORKER) Narrative Severino Mejía DO - 12/07/2023 1:02 PM RAG PRODUCTION WORKER Severino Mejía DO ? 12/07/2023 ??1:47 PM Critical Care Performed by: Severino Mejía DO Authorized by: Severino Mejía DO ?? Critical care provider statement: As reflected in the history, physical exam, orders, notes, and/or MDM, I was personally present while the patient was critically ill and provided critical care services for 48 minutes, excluding time involved in separately billable procedures. ??Critical care was necessary to treat or prevent imminent or life-threatening deterioration of the following condition(s): ?? acute cerebrovascular accident (CVA) ?? Management of CODE STROKE ??Critical care was time spent by me providing the following: ? continuous telemetry, continuous pulse oximetry and serial bedside patient exams ?? frequent neurologic exams, decision regarding acute lytic therapy and initiation of stroke management ?? decision regarding NPO status ?? initiation of lytic therapy ?? I provided emergent necessary critical care medicine services to this patient. I ordered and reviewed test results and/or imaging studies. I spent time discussing the management of this critically ill patient with consultants and the medical staff. I spent time discussing the management and therapeutic options for this critically ill patient with the patient themselves or with the appropriate designated surrogate decision-maker. I spent time documenting in the medical record. I admitted this patient to an Intensive Care unit (ICU) and discussed management with the admitting team. us Severino Mejía DO IN CLINIC/BEDSIDE ORDERABLES F inal Result documented in this encounter Visit Diagnoses Diagnosis Acute CVA (cerebrovascular accident) (HCC)- Primary Acute CVA (cerebrovascular accident) (HCC) documented in this encounter Admitting Diagnoses Diagnosis Acute CVA (cerebrovascular accident) (HCC) documented in this encounter Administered Medications Inactive Administered Medications - up to 3 most recent administrations Medication Order MAR Action Action Date Dose Rate Site acetaminophen (TYLENOL) 32 mg/mL oral liquid 650 mg 650 mg, feeding tube, Every 4 hours PRN, 1st line for pain, fever, Starting on Wed12/07/23 at 193, Administer if patient receiving meds per tube., Indications: Fever, PainIndications:Fever,Pain Given 12/13/2023 9:25 PM RAG PRODUCTION WORKER 650 mg acetaminophen (TYLENOL) suppository 650 mg 650 mg, rectal, Every 4 hours PRN, 1st line for pain, fever, Starting on Wed12/07/23 at 193, Administer if patient cannot tolerate enteral route., Indications: Fever, PainIndications:Fever,Pain acetaminophen (TYLENOL) tablet 650 mg 650 mg, oral, Every 4 hours PRN, 1st line for pain, fever, Starting on Wed12/07/23 at 193, Administer if patient can swallow tablets., Indications: Fever, PainIndications:Fever,Pain Given 12/11/2023 1:44 PM RAG PRODUCTION WORKER 650 mg Given 12/09/2023 10:08 PM RAG PRODUCTION WORKER 650 mg Given 12/07/2023 8:23 PM RAG PRODUCTION WORKER 650 mg albuterol HFA (PROVENTIL HFA,VENTOLIN HFA,PROAIR HFA) 90 mcg/actuation inhaler 2 puff 2 puff, inhalation, Every 4 hours PRN (manager corporate responsibility), wheezing, shortness of breath, Starting on Wed12/07/23 at 1759 aspirin chewable tablet 81 mg 81 mg, oral, Daily, First dose on Wed12/08/23 at 1645 Given 12/15/2023 8:02 AM RAG PRODUCTION WORKER 81 mg Given 12/14/2023 8:16 AM RAG PRODUCTION WORKER 81 mg Given 12/13/2023 10:36 AM RAG PRODUCTION WORKER 81 mg bismuth subsalicylate (PEPTO BISMOL) 262 mg/15 mL oral suspension 30 mL 30 mL, oral, 4 times daily PRN, indigestion, Starting on Wed12/10/23 at 2010, For 4 doses Given 12/10/2023 8:48 PM RAG PRODUCTION WORKER 30 mL Carrier Fluids for Secondary Infusion - 0.9% Sodium Chloride 30 mL, intravenous, As needed, For priming tubing and/or flushing, Starting on Wed12/07/23 at 1703, 0-250 ml/hr to flush line after IV infusions when no maintenance IV ordered. Infuse 30mL at the same rate as the secondary infusion. Run as primary IV, not intended for KVO. dextrose (D10W) 10% bolus 250 mL 250 mL, intravenous, at 1,000 mL/hr, Administer over 15 Minutes, Every 15 min PRN, blood glucose less than 70 mg/dL and UNABLE to swallow/take PO glucose/juice., Starting on Wed12/07/23 at 1703, After treatment for hypoglycemia, recheck BG followed by treatment every 15 minutes until the BG is greater than 100 mg/dL. Then check BG 1 hour post treatment. If BG is less than 100 mg/dL, repeat Q15 minute BG checks and treatment. Call MD for each episode of hypoglycemia., Indications: hypoglycemic disorderIndications:hypoglycemic disorder dextrose 5% and sodium chloride 0.9% infusion (premix) 30 mL/hr, intravenous, Continuous, Starting on Wed12/07/23 at 1745 New Bag 12/07/2023 5:34 PM [employer]AG [employer]ODUCTION [employer] 30 mL/hr 30 mL/hr dextrose oral liquid liquid 15 g 15 g, oral, Every 15 min PRN, low blood sugar, blood glucose less than 70 mg/dL, Starting on Wed12/07/23 at 1703, If patient is alert and able to eat/drink, give 15 gm glucose or one juice (4 fluid ounces) NOT ORANGE JUICE. After treatment for hypoglycemia, recheck BG followed by treatment every 15 minutes until the BG is greater than 100 mg/dL. Then check BG 1 hour post-treatment. If BG is less than 100 mg/dL, repeat Q15 minute BG checks and treatment. Call MD for each episode of hypoglycemia., Indications: hypoglycemic disorderIndications:hypoglycemic disorder docusate sodium (COLACE) capsule 100 mg 100 mg, oral, 2 times daily, First dose on Wed12/13/23 at 1700, Indications: constipationIndications:constipati on Given 12/15/2023 8:02 AM RAG [employer]ODUCTION WORKER 100 mg Given 12/14/2023 8:16 AM [employer]ODUCTION WORKER 100 mg Given 12/13/2023 5:30 PM [employer] WORKER 100 mg donepeziL (ARICEPT) tablet 10 mg 10 mg, oral, Nightly, First dose on Wed12/07/23 at 2100 Given 12/14/2023 9:33 PM [employer]ODUCTION WORKER 10 mg Given 12/13/2023 9:16 PM [employer]ODUCTION WORKER 10 mg Given 12/12/2023 8:36 PM [employer] WORKER 10 mg enoxaparin (LOVENOX) syringe 40 mg 40 mg, subcutaneous, Daily (for enoxaparin), First dose on Wed12/09/23 at 2100, Indications: Deep Vein Thrombosis Prevention, On hold since [facility] 12/11/2023 at 0115 until manually unheldIndications:Deep Vein Thrombosis Prevention Given 12/10/2023 8:48 PM [employer] WORK[employer] 40 mg Right Lower Abdomen Given 12/09/2023 9:19 PM [employer] WORKER 40 mg Le ft Lower Abdomen fluticasone furoate-vilanteroL (BREO ELLIPTA) 100-25 mcg/dose inhaler 1 puff 1 puff, inhalation, Daily (manager corporate responsibility), First dose on Wed12/07/23 at 1830 Given 12/15/2023 8:10 AM [employer]ODUCTION WORKER 1 puff Given 12/14/2023 10:36 AM [employer]ODUCTION WORKER 1 puff Given 12/13/2023 9:39 AM [employer] WORKER 1 puff gabapentin (NEURONTIN) capsule 300 mg 300 mg, oral, 3 times daily, First dose on Wed12/07/23 at 2100 Given 12/15/2023 8:02 AM [employer] WORKER 300 mg Given 12/14/2023 5:05 PM [employer] WORKER 300 mg Given 12/14/2023 11:22 AM [employer] WORKER 300 mg glucagon injection 1 mg 1 mg, intramuscular, Every 30 min PRN, low blood sugar, blood glucose less than 70 mg/dL AND no IV access AND unable to take PO glucose/juice., Starting on Wed12/07/23 at 1703, After Glucagon is administered, position patient on side if possible to avoid aspiration. Obtain IV access. Follow glucagon treatment with glucose treatment or IV dextrose. After treatment for hypoglycemia, recheck BG followed by treatment every 15 minutes until the BG is greater than 100 mg/dL. Then check BG 1 hour post treatment. If BG is less than 100 mg/dL, repeat Q15 minute BG checks and treatment. Call MD for each episode of hypoglycemia. Reconstitute 1 mg vial with 1 mL SWFI. Use immediately following reconstitution. hydrALAZINE (APRESOLINE) injection 10 mg 10 mg, intravenous, Administer over 2 Minutes, Every 15 min PRN, other, SBP greater than or equal to 185mmHg or DBP greater than or equal to 110 mmHg AND bradycardic (HR less than 60 bpm), Starting on Wed12/08/23 at 1616, Supersede other blood pressure/heart rate orders for the first 24 hours after IV thrombolytic administered. If no response to dose, contact provider for dosing change/agent change., Indications: Elevated BP after ThrombolyticIndications:Elevated BP after Thrombolytic ioversoL (OPTIRAY 350) syringe 125 mL 125 mL, intravenous, Once in imaging, contrast, Starting on Wed12/07/23 at 1304, For 1 dose Contrast Given 12/07/2023 1:17 PM [employer]ODUCTION WORKER 120 mL lactulose (CEPHULAC) packet 20 g 20 g, oral, 2 times daily, First dose (after last modification) on Wed12/14/23 at 1245, For 2 doses Given 12/14/2023 2:22 PM [employer] WORKER 20 g levothyroxine (SYNTHROID) tablet 150 mcg 150 mcg, oral, Daily (early AM), First dose on Wed12/08/23 at 0600, Administer on an empty stomach, preferably 30 minutes before breakfast. Take 4 hours apart from antacids, iron and calcium products. Separate from tube feeds, if applicable. Given 12/15/2023 6:43 AM [employer]ODUCTION WORKER 150 mcg Given 12/14/2023 6:45 AM [employer]ODUCTION WORKER 150 mcg Given 12/13/2023 6:20 AM [employer] WORKER 150 mcg ofloxacin (OCUFLOX) 0.3 % ophthalmic solution 1 drop 1 drop, each eye, Daily PRN, Dry eyes, Starting on 12/12/23 at 1409 Given 12/12/2023 3:55 PM [employer] WORKER 1 drop ondansetron (ZOFRAN) injection 4 mg 4 mg, intravenous, Administer over 2 Minutes, Every 4 hours PRN, nausea, vomiting, Starting on Wed12/11/23 at 0116 Given 12/11/2023 1:42 AM [employer] WORKER 4 m g oxyCODONE-acetaminophen (PERCOCET) 5-325 mg per tablet 1 tablet 1 tablet, oral, 4 times daily PRN, 2nd line for pain, Starting on Wed12/10/23 at 1129, Indications: PainIndications:Pain Given 12/15/2023 6:43 AM [employer]AG [employer]ODUCTION WORKER 1 tablet Given 12/14/2023 9:36 PM [employer]ODUCTION WORKER 1 tablet Given 12/14/2023 10:39 AM [employer]ODUCTION WORKER 1 tablet pantoprazole (PROTONIX) 40 mg in sodium chloride 0.9% 10 mL IV Syringe 40 mg, intravenous, at 300 mL/hr, Administer over 2 Minutes, Every 24 hours scheduled, First dose on Wed12/07/23 at 1830, For IV administration, reconstitute 40 mg vial with 10 mL sodium chloride 0.9% for injection for a final concentration of 4 mg/mL, Indications: Treatment of Non-Bleeding Gastric Disorder, GERD, home medIndications:Treatment of Non-Bleeding Gastric Disorder,GERD, home med Given 12/08/2023 8:41 AM [employer] WORKER 40 mg 300 mL/hr Given 12/07/2023 6:02 PM [employer] WORK[employer] 40 mg 300 mL/hr pantoprazole (PROTONIX) 40 mg in sodium chloride 0.9% 10 mL IV Syringe 40 mg, intravenous, at 300 mL/hr, Administer over 2 Minutes, 2 times daily, First dose on Wed12/11/23 at 0200, For IV administration, reconstitute 40 mg vial with 10 mL sodium chloride 0.9% for injection for a final concentration of 4 mg/mL, Indications: GI Bleed, Stress Ulcer ProphylaxisIndications:GI Bleed,Stress Ulcer Prophylaxis Given 12/15/2023 8:02 AM [employer] WORK[employer] 40 mg 300 mL/hr Given 12/14/2023 9:21 PM [employer] WORKER 40 mg 300 mL/hr Given 12/14/2023 8:16 AM [employer] WORKER 40 mg 300 mL/hr pantoprazole DR (PROTONIX) extended release tablet 20 mg 20 mg, oral, Daily, First dose on Wed12/09/23 at 0900, Do not crush, chew, cut, dissolve, open or otherwise manipulate tablet/capsule., Indications: Stress Ulcer ProphylaxisIndications:Stress Ulcer Prophylaxis Given 12/10/2023 8:47 AM [employer] WORKER 20 mg Given 12/09/2023 9:13 AM [employer] WORKER 20 mg polyethylene glycol (MIRALAX) packet 17 g 17 g, oral, Daily, First dose on Wed12/13/23 at 1700, Indications: constipationIndications:constipation Given 12/14/2023 8:16 AM [employer] WORKER 17 g Given 12/13/2023 5:30 PM [employer]ER 17 g ramelteon (ROZEREM) tablet 8 mg 8 mg, oral, Nightly PRN, sleep, Starting on Wed12/07/23 at 1942, Indications: Sleep-Onset InsomniaIndications:Sleep-Onset Insomnia Given 12/14/2023 9:37 PM [employer] WORKER 8 m g Given 12/13/2023 9:21 PM [employer] WORKER 8 mg rosuvastatin (CRESTOR) tablet 10 mg 10 mg, oral, Daily, First dose on Wed12/07/23 at 2015, Indications: Secondary Stroke PreventionIndications:Secondary Stroke Prevention Given 12/09/2023 9:13 AM [employer] WORKER 10 mg Given 12/08/2023 8:41 AM [employer] WORKER 10 mg Given 12/07/2023 8:23 PM [employer] WORKER 10 mg rosuvastatin (CRESTOR) tablet 40 mg 40 mg, oral, Daily, First dose (after last modification) on Wed12/10/23 at 0900, Indications: Secondary Stroke PreventionIndications:Secondary Stroke Prevention Given 12/15/2023 8:02 AM [employer] WORKER 40 mg Given 12/14/2023 8:16 AM [employer] WORKER 40 mg Given 12/13/2023 8:21 AM [employer] WORKER 40 mg sodium chloride 0.9% flush 0.5-20 mL 0.5-20 mL, intra-catheter, Every 8 hours scheduled, First dose on Wed12/07/23 at 1745, Flush volume based on line type and size. Given 12/15/2023 6:43 AM [employer] WORKER 10 mL Given 12/14/2023 9:46 PM [employer] WORKER 10 mL Given 12/14/2023 5:05 PM [employer] WORKER 10 mL sodium chloride 0.9% flush 0.5-20 mL 0.5-20 mL, intra-catheter, As needed, line care, Starting on Wed12/07/23 at 1703, Flush volume based on line type and size. Flush before and after each use. sodium chloride 0.9% flush 10 mL 10 mL, intra-catheter, Once, On Wed12/07/23 at 1324, For 1 dose, Flush IV catheter BEFORE and AFTER tenecteplase administration. Given 12/07/2023 1:27 PM [employer] WORKER 10 mL sodium chloride 0.9% flush 10 mL 10 mL, intra-catheter, Once, On Wed12/07/23 at 1324, For 1 dose, Flush IV catheter BEFORE and AFTER tenecteplase administration. Given 12/07/2023 1:27 PM [employer] WORKER 10 mL tamsulosin (FLOMAX) extended release capsule 0.4 mg 0.4 mg, oral, Nightly, First dose on Wed12/07/23 at 2100, Do not crush, chew, cut, dissolve, open or otherwise manipulate tablet/capsule. Given 12/14/2023 9:33 PM [employer] WORKER 0.4 mg Given 12/13/2023 9:15 PM [employer]ODUCTION WORKER 0.4 mg Given 12/12/2023 8:36 PM [employer] WORKER 0.4 mg tenecteplase (TNKase) injection for STROKE 25 mg 25 mg (rounded from 26.075 mg = 0.25 mg/kg ? 104.3 kg), intravenous, Once, On Wed12/07/23 at 1324, For 1 dose, 1. Swab Sterile Water & Tenecteplase vials with alcohol pad. 2. Use the included syringe to aseptically WITHDRAW 10 mL of Sterile Water for injection. 3. INJECT entire contents (10 mL) into the Tenecteplase vial, directing the diluent at the powder. Slight foaming is normal. 4. Gently SWIRL until contents are completely dissolved. DO NOT SHAKE. Reconstitution should be complete in approximately 1 minute. Final concentration is 5 mg/mL. 5. INSPECT the solution for particulate matter or discoloration. Solution should be colorless or pale yellow and transparent. 6. WITHDRAW the appropriate volume of solution based on Epic order. Waste WILL be present in the vial. 7. Flush the patient? s intravenous catheter with sodium chloride 0.9% (normal saline) 10 mL flush. 8. Administer tenecteplase as an intravenous bolus OVER 10 SECONDS. 9. Flush the intravenous catheter with sodium chloride 0.9% (normal saline) 10 mL flush., Indications: Acute ischemic strokeIndications:Acute ischemic stroke Given 12/07/2023 1:27 PM R[employer]ODUCTION WORKER 25 m g tiZANidine (ZANAFLEX) tablet 2 mg 2 mg, oral, 3 times daily PRN, muscle spasms, Starting on Wed12/08/23 at 1014, Administer on an empty stomach Given 12/08/2023 10:19 AM [employer] WORKER 2 mg zolpidem (AMBIEN) tablet 5 mg 5 mg, oral, Nightly PRN, sleep, Starting on 12/11/23 at 1320 Given 12/12/2023 8:36 PM [employer]AG [employer]ODUCTION WORKER 5 mg Given 12/11/2023 8:32 PM [employer]AG [employer] WORKER 5 mg documented in this encounter Discontinued Medications Medication Sig Discontinue Reason Start Date End Da te gabapentin (NEURONTIN) 100 mg capsuleIndications:Neur opathic pain TAKE 2 CAPSULES BY MOUTH THREE TIMES DAILY 10/08/2023 12/07/2023 documented as of this encounter Historical Medications * This list may reflect changes made after this encounter. gabapentin (NEURONTIN) 300 mg capsule Take 2 capsules (600 mg total) by mouth 3 (three) times a day 11/16/2023 zolpidem (AMBIEN) 5 mg tablet Take 1 tablet (5 mg total) by mouth nightly at bedtime. 11/15/2023 01/07/2024 spironolactone (ALDACTONE) 25 mg tablet Take 1 tablet (25 mg total) by mouth daily 12/05/2023 01/07/2024 pravastatin (PRAVACHOL) 10 mg tablet Take 1 tablet (10 mg total) by mouth daily 12/01/2023 01/07/2024 added in this encounter Active and Recently Administered Medications Times are shown in [employer]. Scheduled Medication Order 12/13/2023 12/14/2023 12/15/2023 aspirin chewable tablet 81 mg 81 mg, oral, Daily, First dose on Wed12/08/23 at 1645 0845 (Unheld by Provider - Provider: Zheng Veras NP)1036 (Given - Provider: Amie Rdz, MARAH) 0816 (Given - Provider: Andreia Nicolas, MARAH) 0802 (Given - Provider: Norma Saul, MARAH) docusate sodium (COLACE) capsule 100 mg 100 mg, oral, 2 times daily, First dose on Wed12/13/23 at 1700, Indications: constipation 1730 (Given - Provider: Amie Rdz, MARAH) 0816 (Given - Provider: Andreia Nicolas RN)2132 (Not Given - Provider: Chapis Mcknight LPN - Reason: Patient/family refused) 0802 (Given - Provider: Norma Saul RN) donepeziL (ARICEPT) tablet 10 mg 10 mg, oral, Nightly, First dose on Wed12/07/23 at 2100 2116 (Given - Provider: Tamar Valle RN) 213 (Given - Provider: Chapis Mcknight LPN) enoxaparin (LOVENOX) syringe 40 mg 40 mg, subcutaneous, Daily (for enoxaparin), First dose on Wed12/09/23 at 2100, Indications: Deep Vein Thrombosis Prevention, On hold since 12/11/2023 at 0115 until manually unheld 2100 (Hold - Provider: Tamar Valle RN - Reason: See Provider Order) 2100 (Dose Auto Held - Provider: Kristen Isabel NP) 1416 (Unheld by Provider - Provider: Automatic Discharge Provider) fluticasone furoate-vilanteroL (BREO ELLIPTA) 100-25 mcg/dose inhaler 1 puff 1 puff, inhalation, Daily (manager corporate responsibility), First dose on Wed12/07/23 at 1830 0939 (Given - Provider: Alis Martinez CRTT) 1036 (Given - Provider: Adeline Valdes, ADALGISA) 0810 (Given - Provider: Mary Ellen Haq, INSTRUCTOR [employer]ODUCT INSPECTION) gabapentin (NEURONTIN) capsule 300 mg 300 mg, oral, 3 times daily, First dose on Wed12/07/23 at 2100 0821 (Given - Provider: Amie Rdz RN)1606 (Given - Provider: Amie Rdz RN)2115 (Given - Provider: Tamar Valle, MARAH) 0816 (Given - Provider: Andreia Nicolas RN)1122 (Given - Provider: Chapis Mcknight LPN - Comment: was too close to previous dose)1705 (Given - Provider: Andreia Nicolas RN) 0802 (Given - Provider: Norma Saul RN) lactulose (CEPHULAC) packet 20 g 20 g, oral, 2 times daily, First dose (after last modification) on Wed12/14/23 at 1245, For 2 doses 1422 (Given - Provider: Andreia Nicolas RN)2132 (Not Given - Provider: Chapis Mcknight LPN - Reason: Patient/family refused) levothyroxine (SYNTHROID) tablet 150 mcg 150 mcg, oral, Daily (early AM), First dose on Wed12/08/23 at 0600, Administer on an empty stomach, preferably 30 minutes before breakfast. Take 4 hours apart from antacids, iron and calcium products. Separate from tube feeds, if applicable. 0620 (Given - Provider: Eileen Clark RN) 0645 (Given - Provider: Tamra Valle RN) 0643 (Given - Provider: Chapis Mcknight LPN) pantoprazole (PROTONIX) 40 mg in sodium chloride 0.9% 10 mL IV Syringe 40 mg, intravenous, at 300 mL/hr, Administer over 2 Minutes, 2 times daily, First dose on Wed12/11/23 at 0200, For IV administration, reconstitute 40 mg vial with 10 mL sodium chloride 0.9% for injection for a final concentration of 4 mg/mL, Indications: GI Bleed, Stress Ulcer Prophylaxis 0821 (Given - Provider: Amie Rdz RN)211 (Given - Provider: Tamar Valle RN) 0816 (Given - Provider: Andreia Nicolas RN)212 (Given - Provider: Patricia Lieberman RN) 0802 (Given - Provider: Norma Saul, MARAH) polyethylene glycol (MIRALAX) packet 17 g 17 g, oral, Daily, First dose on Wed12/13/23 at 1700, Indications: constipation 1730 (Given - Provider: Amie dRz RN) 0816 (Given - Provider: Andreia Nicolas RN) 0802 (Not Given - Provider: Norma Saul RN - Reason: Patient/family refused) rosuvastatin (CRESTOR) tablet 40 mg 40 mg, oral, Daily, First dose (after last modification) on Wed12/10/23 at 0900, Indications: Secondary Stroke Prevention 0821 (Given - Provider: Amie Rzd RN) 0816 (Given - Provider: Andreia Nicolas RN) 0802 (Given - Provider: Norma Saul RN) sodium chloride 0.9% flush 0.5-20 mL 0.5-20 mL, intra-catheter, Every 8 hours scheduled, First dose on Wed12/07/23 at 1745, Flush volume based on line type and size. 0621 (Given - Provider: Eileen Clark RN)1559 (Not Given - Provider: Amie Rdz RN - Reason: Patient not available)2115 (Given - Provider: Tamar Valle RN) 0646 (Given - Provider: Tamar Valle RN)170 (Given - Provider: Andreia Nicolas RN)214 (Given - Provider: Chapis Mcknight LPN) 0643 (Given - Provider: Chapis Mcknight LPN)1400 (Due) tamsulosin (FLOMAX) extended release capsule 0.4 mg 0.4 mg, oral, Nightly, First dose on Wed12/07/23 at 2100, Do not crush, chew, cut, dissolve, open or otherwise manipulate tablet/capsule. 2114 (Given - Provider: Tamar Valle RN) 2132 (Given - Provider: Chapis Mcknight LPN) PRN Medication Order 12/13/2023 12/14/2023 12/15/2023 acetaminophen (TYLENOL) 32 mg/mL oral liquid 650 mg(Linked Group 1) 650 mg, feeding tube, Every 4 hours PRN, 1st line for pain, fever, Starting on Wed12/07/23 at 1931, Administer if patient receiving meds per tube., Indications: Fever, Pain 2124 (Given - Provider: Tamar Valle, MARAH) acetaminophen (TYLENOL) suppository 650 mg(Linked Group 1) 650 mg, rectal, Every 4 hours PRN, 1st line for pain, fever, Starting on Wed12/07/23 at 1931, Administer if patient cannot tolerate enteral route., Indications: Fever, Pain 2124 (See Alternative - Provider: Tamar Valle RN) acetaminophen (TYLENOL) tablet 650 mg(Linked Group 1) 650 mg, oral, Every 4 hours PRN, 1st line for pain, fever, Starting on Wed12/07/23 at 1931, Administer if patient can swallow tablets., Indications: Fever, Pain 2124 (See Alternative - Provider: Tamar Valle RN) albuterol HFA (PROVENTIL HFA,VENTOLIN HFA,PROAIR HFA) 90 mcg/actuation inhaler 2 puff 2 puff, inhalation, Every 4 hours PRN (manager corporate responsibility), wheezing, shortness of breath, Starting on Wed12/07/23 at 1759 Carrier Fluids for Secondary Infusion - 0.9% Sodium Chloride 30 mL, intravenous, As needed, For priming tubing and/or flushing, Starting on Wed12/07/23 at 1703, 0-250 ml/hr to flush line after IV infusions when no maintenance IV ordered. Infuse 30mL at the same rate as the secondary infusion. Run as primary IV, not intended for KVO. dextrose (D10W) 10% bolus 250 mL(Linked Group 2) 250 mL, intravenous, at 1,000 mL/hr, Administer over 15 Minutes, Every 15 min PRN, blood glucose less than 70 mg/dL and UNABLE to swallow/take PO glucose/juice., Starting on Wed12/07/23 at 1703, After treatment for hypoglycemia, recheck BG followed by treatment every 15 minutes until the BG is greater than 100 mg/dL. Then check BG 1 hour post treatment. If BG is less than 100 mg/dL, repeat Q15 minute BG checks and treatment. Call MD for each episode of hypoglycemia., Indications: hypoglycemic disorder dextrose oral liquid liquid 15 g(Linked Group 2) 15 g, oral, Every 15 min PRN, low blood sugar, blood glucose less than 70 mg/dL, Starting on Wed12/07/23 at 1703, If patient is alert and able to eat/drink, give 15 gm glucose or one juice (4 fluid ounces) NOT ORANGE JUICE. After treatment for hypoglycemia, recheck BG followed by treatment every 15 minutes until the BG is greater than 100 mg/dL. Then check BG 1 hour post-treatment. If BG is less than 100 mg/dL, repeat Q15 minute BG checks and treatment. Call MD for each episode of hypoglycemia., Indications: hypoglycemic disorder glucagon injection 1 mg 1 mg, intramuscular, Every 30 min PRN, low blood sugar, blood glucose less than 70 mg/dL AND no IV access AND unable to take PO glucose/juice., Starting on Wed12/07/23 at 1703, After Glucagon is administered, position patient on side if possible to avoid aspiration. Obtain IV access. Follow glucagon treatment with glucose treatment or IV dextrose. After treatment for hypoglycemia, recheck BG followed by treatment every 15 minutes until the BG is greater than 100 mg/dL. Then check BG 1 hour post treatment. If BG is less than 100 mg/dL, repeat Q15 minute BG checks and treatment. Call MD for each episode of hypoglycemia. Reconstitute 1 mg vial with 1 mL SWFI. Use immediately following reconstitution. hydrALAZINE (APRESOLINE) injection 10 mg(Linked Group 3) 10 mg, intravenous, Administer over 2 Minutes, Every 15 min PRN, other, SBP greater than or equal to 185mmHg or DBP greater than or equal to 110 mmHg AND bradycardic (HR less than 60 bpm), Starting on Wed12/08/23 at 1616, Supersede other blood pressure/heart rate orders for the first 24 hours after IV thrombolytic administered. If no response to dose, contact provider for dosing change/agent change., Indications: Elevated BP after Thrombolytic ofloxacin (OCUFLOX) 0.3 % ophthalmic solution 1 drop 1 drop, each eye, Daily PRN, Dry eyes, Starting on 12/12/23 at 1409 ondansetron (ZOFRAN) injection 4 mg 4 mg, intravenous, Administer over 2 Minutes, Every 4 hours PRN, nausea, vomiting, Starting on 12/11/23 at 0116 oxyCODONE-acetaminophen (PERCOCET) 5-325 mg per tablet 1 tablet 1 tablet, oral, 4 times daily PRN, 2nd line for pain, Starting on Wed12/10/23 at 1129, Indications: Pain 1036 (Given - Provider: Amie Rdz RN) 1039 (Given - Provider: Andreia Nicolas RN)2136 (Given - Provider: Chapis Mcknight LPN) 0643 (Given - Provider: Chapis Mcknight LPN) ramelteon (ROZEREM) tablet 8 mg 8 mg, oral, Nightly PRN, sleep, Starting on Wed12/07/23 at 1942, Indications: Sleep-Onset Insomnia 2120 (Given - Provider: Tamar Valle RN) 2136 (Given - Provider: Chapis Mcknight LPN) sodium chloride 0.9% flush 0.5-20 mL 0.5-20 mL, intra-catheter, As needed, line care, Starting on Wed12/07/23 at 1703, Flush volume based on line type and size. Flush before and after each use. tiZANidine (ZANAFLEX) tablet 2 mg 2 mg, oral, 3 times daily PRN, muscle spasms, Starting on Wed12/08/23 at 1014, Administer on an empty stomach zolpidem (AMBIEN) tablet 5 mg 5 mg, oral, Nightly PRN, sleep, Starting on Wed12/11/23 at 1320 Linked Groups Order Group 1: acetaminophen (TYLENOL) tablet 650 mgJump to med 650 mg, oral, Every 4 hours PRN, 1st line for pain, fever, Starting on Wed12/07/23 at 1931, Administer if patient can swallow tablets., Indications: Fever, Pain Or acetaminophen (TYLENOL) 32 mg/mL oral liquid 650 mgJump to med 650 mg, feeding tube, Every 4 hours PRN, 1st line for pain, fever, Starting on Wed12/07/23 at 1931, Administer if patient receiving meds per tube., Indications: Fever, Pain Or acetaminophen (TYLENOL) suppository 650 mgJump to med 650 mg, rectal, Every 4 hours PRN, 1st line for pain, fever, Starting on Wed12/07/23 at 1931, Administer if patient cannot tolerate enteral route., Indications: Fever, Pain Group 2: dextrose oral liquid liquid 15 gJump to med 15 g, oral, Every 15 min PRN, low blood sugar, blood glucose less than 70 mg/dL, Starting on Wed12/07/23 at 1703, If patient is alert and able to eat/drink, give 15 gm glucose or one juice (4 fluid ounces) NOT ORANGE JUICE. After treatment for hypoglycemia, recheck BG followed by treatment every 15 minutes until the BG is greater than 100 mg/dL. Then check BG 1 hour post-treatment. If BG is less than 100 mg/dL, repeat Q15 minute BG checks and treatment. Call MD for each episode of hypoglycemia., Indications: hypoglycemic disorder Or dextrose (D10W) 10% bolus 250 mLJump to med 250 mL, intravenous, at 1,000 mL/hr, Administer over 15 Minutes, Every 15 min PRN, blood glucose less than 70 mg/dL and UNABLE to swallow/take PO glucose/juice., Starting on Wed12/07/23 at 1703, After treatment for hypoglycemia, recheck BG followed by treatment every 15 minutes until the BG is greater than 100 mg/dL. Then check BG 1 hour post treatment. If BG is less than 100 mg/dL, repeat Q15 minute BG checks and treatment. Call MD for each episode of hypoglycemia., Indications: hypoglycemic disorder Group 3: hydrALAZINE (APRESOLINE) injection 10 mgJump to med 10 mg, intravenous, Administer over 2 Minutes, Every 15 min PRN, other, SBP greater than or equal to 185mmHg or DBP greater than or equal to 110 mmHg AND bradycardic (HR less than 60 bpm), Starting on Wed12/08/23 at 1616, Supersede other blood pressure/heart rate orders for the first 24 hours after IV thrombolytic administered. If no response to dose, contact provider for dosing change/agent change., Indications: Elevated BP after Thrombolytic documented in this encounter Orders Medications Ordered That Te ht Not Have Been Administered Count Last Ordered Date First Ordered Date lactulose (CEPHULAC) packet 20 g 1 12/14/19 hydrALAZINE (APRESOLINE) injection 10 mg 3 12/08/2023 12/07/2023 acetaminophen (TYLENOL) suppository 650 mg 2 12/07/2023 albuterol HFA (PROVENTIL HFA ,VENTOLIN HFA,PROAIR HFA) 90 mcg/actuation inhaler 2 puff 2 12/07/2023 Carrier Fluids for Secondary Infusion - 0.9% Sodium Chloride 1 12/07/2023 dextrose (D10W) 10% bolus 250 mL 1 12/07/19 dextrose oral liquid liquid 15 g 1 12/07/19 glucagon injection 1 mg 1 12/07/2023 insulin lispro (HumaLOG, ADM ELOG) 100 unit/mL injection 1-3 Units 1 12/07/2023 labetaloL (NORMODYNE,TRANDAT E) injection 10 mg 2 12/07/2023 sodium chloride 0.9% flush 0.5-20 mL 1 11/12 Lab Orders Without Results Count Last Ordered D ate First Ordered Date POCT GLUCOSE DEVICE 5 12/08/2023 12/07/19 24 Nursing Count Last Ordered Date First Orde red Date TELEMETRY MONITORING 1 12/09/2023 CARDIORESPIRATORY MONITOR 1 12/07/2023 NURSING SWALLOW ASSESSMENT 2 12/07/2023 WEIGH PATIENT 2 12/07/2023 Consult Count Last Ordered Date First Orde red Date IP CONSULT TO SOCIAL WORK 3 12/13/2023 IP CONSULT TO NUTRITION SERVICES 1 12/07/19 24 IV Count Last Ordered Date First Orde red Date SALINE LOCK IV 2 12/07/2023 Admission Count Last Ordered Date First Orde red Date ADMIT TO INPATIENT 1 12/07/2023 Transfer Count Last Ordered Date First Orde red Date TRANSFER PATIENT TO NEW UNIT 1 12/08/2023 Discharge Count Last Ordered Date First Orde red Date DISCHARGE PATIENT 1 12/15/2023 CORE MEASURES Count Last Ordered Date First Ord ered Date REASON FOR NO VTE PROPHYLAXI S - HOSPITAL ADMISSION - MEDICATIONS 1 12/07/2023 documented in this encounter Care Teams Service Dog Trainer Relationship Specialty Start Date End Date Wolfgang Serrano MD PCP - General Family Medicine 05/05/23 08/02/24 Unknown, Notinfile 03/12/22 [place] [address] [place] [address] 03/12/22 Chuy Enriquez MD [address] [place] [address] Consulting Physician Pulmonary Disease 10/13/23 Luis Felipe Cedillo MD [address] [place] [address] Consulting Physician Gastroenterology 10/13/23 Marlene Thornton MD [address], [place] [address] Surgeon Vascular Surgery 11/10/23 documented as of this encounter
--- OUTSIDE RECORDS SUMMARY | 2024-10-11 01:57 | XMS_ITS | Encounter Summary ---
Author Organization [facility] Healthcare Address [address] [place] [address] Care Team Providers Care Track Broom Operator Name Role Phone Wolfgang Serrano MD Primary Care Provider Unknown, Notinfile Unavailable Unavailable Santino Funk MD Unavailable [phone] Chuy Enriquez MD Unavailable Luis Felipe Cedillo MD Unavailable Marlene Thornton MD Unavailable Encounter Details Date Type Department Care Team (Late st Contact Info) Description 11/18/2023 Orders Only [facility] [address] [facility] [address] [place] [address] Chuy Enriquez MD [address] [place] [address] Lung nodule (Primary Dx) Social History Tobacco Use Types [...] relatives? Three times a week 11/25/2021 Attends Yarsanism Services Not on file 11/25 Active Member [...] slept in a long-term (including now)? 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 Gender Identity Not on file Sexual Orientation Not on file documented as of this encounter Plan of Treatment Upcoming Encounters Date Type Department Care Team (Latest Contact Info) Description 10/23/2024 10:00 AM EXPLOSIVE OPERATOR Hospital Encounter [facility] Operating Room [address] [place] [address] [place] [address] [facility] [address] [place], [place] [id number] 10/23/2024 10:00 AM EXPLOSIVE OPERATOR - 10/23/2024 1:00 PM EXPLOSIVE OPERATOR Surgery [facility] Operating Room [address] [place] [address] [place] [address] [facility] [address] [place], [place] [id number] ARTHROPLASTY TOTAL KNEE LEFT Scheduled Procedures Name Priority Associated Diagnoses Date/Ti me ARTHROPLASTY TOTAL KNEE left knee osteoarthritis 10/23/2024 10:00 AM EXPLOSIVE OPERATOR ESOPHAGOGASTRODUODENOSCOPY Dysphagia, unspecified type documented as of this encounter Visit Diagnoses Diagnosis Lung nodule- Primary Other diseases of lung, not elsewhere classified documented in this encounter Care Teams Track Broom Operator Relationship Specialty Start Date End Date Wolfgang Serrano MD PCP - General Family Medicine 05/05/23 08/02/24 Unknown, Notinfile 03/12/22 [place] [address] [facility] [address] [place] [address] 03/12/22 Chuy Enriquez MD [address] [facility] [address] [place] [address] Consulting Physician Pulmonary Disease 10/13/23 Luis Felipe Cedillo MD [address] [facility] [address] [place] [address] Consulting Physician Gastroenterology 10/13/23 Marlene Thornton MD [address] [address] Surgeon Vascular Surgery 11/10/23 documented as of this encounter
--- OUTSIDE RECORDS SUMMARY | 2024-10-11 01:57 | XMS_ITS | Encounter Summary ---
Author Organization [facility] Address [address] [place] [address] Phone Care Team Providers Care Bond Clerk Name Role Phone Wolfgang Serrano MD Primary Care Provider Unknown, Notinfile Unavailable Unavailable Santino Funk MD Unavailable [phone] Chuy Enriquez MD Unavailable Luis Felipe Cedillo MD Unavailable [phone] Marlene Thornton MD Unavailable [phone] Reason for Visit * Reason Comments Rash * Consultation (Routine) - Pending Review Specialty Diagnoses / Procedures Referred By Dillan mccallum Referred To Contact Dermatology Diagnoses Dermatitis Jevon Barrera, HAND II CUTTER [address] [place] [address] Phone: tel: fax: [facility] Dermatology [facility] [address] [place] [address] Phone: tel: fax: Referral ID Status Reason Start Date Expiration Date Visits Requested Visits Authorized [id number] Pending Review Specialty Services Required 10/29/2023 11/27/2024 12 12 Encounter Details Date Type Department Care Team (Late st Contact Info) Description 11/17/2023 1:15 PM [employer] Office Visit [facility] Dermatology [address] [facility] [address] [place] [address] Byron Woody IV, MD PhD [address] [facility] [address] [place] [address] Pruritus (Primary Dx); Lichen simplex chronicus; Prurigo nodularis Social History Tobacco Use Types Packs/Day Years [...] relatives? Three times a week 11/25/2021 Attends Islam Services Not on file 11/25 Active Member [...] on file Legal Sex Male 3:25 PM [employer] Gender Identity Not on file Sexual Orientation Not on file documented as of this encounter Ordered Prescriptions Prescription Sig Dispense Quantity Refills Last Filled Start Date End Date clobetasoL (TEMOVATE) 0.05 % ointmentIndicatio ns:Skin Inflammation [...] a separate prescription. 60 g 3 11/17/2023 mupirocin (BACTROBAN) 2 % ointment Apply topically 2 (two) times a day If your most severe itchy rash has yellow crusts/flakes, then mix mupirocin 1:1 with clobetsol ointment before applying them to your rash. For less severe rash/itch, use triamcinolone cream sent as a separate prescription. 30 g 3 11/17/2023 01/07/20 24 triamcinolone (KENALOG) 0.1 % creamIndications: Skin Inflammation Apply topically 2 (two) times a day as needed for rash Or itch on the skin. Do not use on face, armpits, or groin. For more severe rash/itch, use clobetasol/mupiroc in sent as a separate prescription. 453.6 g 2 11/17/2023 01/07/20 24 documented in this encounter Progress Notes * Byron Woody IV, MD PhD - 11/17/2023 1:15 PM CST CC: Itch/rash HPI: Patient presents today for evaluation of rash with itch for months. Complains that over the counteranti-itch meds don't work. Rash has yellow crusts and clear drainage in the morning. Also states that skin is itchy all the time, does not use moisturizers. ROS: Constitutional: No fever, no chills, no unintended weight loss Lymphatic: No swollen lymph nodes Hematology: No easy bruising Oral: No mouth sores - Otherwise, no new, darkening, bleeding, changing, non-healing or tender lesions that are of concern to the patient today. - Reviewed medications, allergies, past medical history, family history, and social history. Non-contributory unless otherwise specified below. PHYSICAL EXAM: - Lichenified, erythematous plaques with some yellow crusting of right wrist (3x4 cm), left forearm(1 cm), right and left 1st digit dorsal surface of MCP (2x1 cm). - Hyperpigmented, erythematous papule of right abdomen. Otherwise: GENERAL: Appears well. No acute distress. ORIENTATION: Alert and oriented x3. MOOD/AFFECT: Normal affect. FACE: No abnormalities noted. EARS: No abnormalities noted. SCALP/HAIR: No abnormalities noted. EYES/EYELIDS: No scleral icterus. No abnormalities noted of conjunctiva or eyelids. LIPS/ORAL MUCOSA: No abnormalities noted. NECK: No abnormalities noted. CHEST: No abnormalities noted. BACK: No abnormalities noted. ABDOMEN: No abnormalities noted. EXTREMITIES (RUE): No abnormalities noted. EXTREMITIES (LUE): No abnormalities noted. EXTREMITIES (RLE): No abnormalities noted. EXTREMITIES (LLE): No abnormalities noted. DIGITS/NAILS: No cyanosis, clubbing, or nail abnormality. GENITALIA, GROIN, BUTTOCKS: No abnormalities noted. CARDIOVASCULAR: No edema or varicosities noted. ECCRINE: No hyperhidrosis. LYMPH: No adenopathy cervical, supraclavicular, occipital, axillary, inguinal, popliteal. ASSESSMENT AND PLAN: # Lichen Simplex Chronic Complicated by # Staph infection (yellow crusts) and # Pruritus Educated patient, provided reassurance. Reviewed dry skin care. START clobetasol ointment mixed 1:1 with mupirocin ointment to affected areas of more severe rash/itch with yellow crusts twice a day. Patient told that they can use clobetasol ointment alone when yellow crusts are not present. START triamcinolone cream applied to affected areas of less severe rash/itch twice a day. Steroid side effects reviewed (SER) including but not limited to: glaucoma (when used around the eyes), skin thinning (atrophy), stretch arreola (striae), easy bruising (senile/solar purpura), easy tearing of the skin, and enlarged blood vessels (telangiectasia). # Prurigo - right abdomen Educated patient, provided reassurance. Triamcinolones as above. RTC 3-4 months or sooner PRN TED POLICE documented in this encounter Plan of Treatment Upcoming Encounters Date Type Department Care Team (Latest Contact Info) Description 10/23/2024 10:00 AM [employer] Hospital Encounter [facility] Operating Room [address] [place] [address] [place] [address] [address] 10/23/2024 10:00 AM [employer] - 10/23/2024 1:00 PM [employer] Surgery [facility] Operating Room [address] [place] [address] [place] [address] [address] ARTHROPLASTY TOTAL KNEE LEFT Scheduled Procedures Name Priority Associated Diagnoses Date/Ti me ARTHROPLASTY TOTAL KNEE left knee osteoarthritis 10/23/2024 10:00 AM [employer] ESOPHAGOGASTRODUODENOSCOPY Dysphagia, unspecified type documented as of this encounter Visit Diagnoses Diagnosis Pruritus- Primary Unspecified pruritic disorder Lichen simplex chronicus Lichenification and lichen simplex chronicus Prurigo nodularis Lichenification and lichen simplex chronicus documented in this encounter Historical Medications * This list may reflect changes made after this encounter. Flovent HFA 44 mcg/actuation inhaler 08/25/2023 cetirizine (ZyrTEC) 10 mg tablet Take 1 tablet (10 mg total) by mouth daily 09/03/2023 eszopiclone (LUNESTA) 2 mg tablet BRING TABLET WITH YOU TO SLEEP LAB 11/15/2023 01/07/2024 azithromycin (ZITHROMAX) 250 mg tablet TAKE 2 TABLETS BY MOUTH ON DAY 1, AND THEN TAKE 1 TABLET BY MOUTH ONCE A DAY ON DAY 2 THROUGH DAY 5 08/31/2023 01/07/2024 added in this encounter Orders Outpatient Referral Count Last Ordered Date Fir st Ordered Date AMB REFERRAL TO DERMATOLOGY 1 11/17/2023 documented in this encounter Care Teams Bond Clerk Relationship Specialty Start Date End Date Wolfgang Serrano MD PCP - General Family Medicine 05/05/23 08/02/24 Unknown, Notinfile 03/12/22 [place] [address] [facility] [address] [place] [address] 03/12/22 Chuy Enriquez MD [address] [facility] [address] [place] [address] Consulting Physician Pulmonary Disease 10/13/23 Luis Felipe Cedillo MD [address] [facility] [address] [place] [address] Consulting Physician Gastroenterology 10/13/23 Marlene Thornton MD [address] [facility] [address] [address] Surgeon Vascular Surgery 11/10/23 documented as of this encounter
--- OUTSIDE RECORDS SUMMARY | 2024-10-11 01:57 | XMS_ITS | Encounter Summary ---
Author Organization [facility] Address [address] [place] [address] Phone Care Team Providers Care Senior Project Coordinator Name Role Phone Wolfgang Serrano MD Primary Care Provider [phone] Unknown, Notinfile Unavailable Unavailable Santino Funk MD Unavailable Chuy Enriquez MD Unavailable Luis Felipe Cedillo MD Unavailable Encounter Details Date Type Department Care Team (Late st Contact Info) Description 10/28/2023 Telephone [facility] Dermatology [facility] [address] [place] [address] Amari Torrez, B.A. Social History Tobacco Use Types Packs/Day Years [...] relatives? Three times a week 11/25/2021 Attends Restorationism Services Not on file 11/25 Active Member [...] slept in a fpc (including now)? 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 - 10/28/2023 3:19 PM CST Pt has new patient referral scanned into chart under Ref Phys Doc. Please contact pt to schedule. LUMBER GRADER documented in this encounter Plan of Treatment Upcoming Encounters Date Type Department Care Team (Latest Contact Info) Description 10/23/2024 10:00 AM DRY LUMBER GRADER Hospital Encounter [facility] Operating Room [id number] [place] [address] [place] [address] [address] 10/23/2024 10:00 AM DRY LUMBER GRADER - 10/23/2024 1:00 PM DRY LUMBER GRADER Surgery [facility] Operating Room [id number] [place] [address] [place] [address] [id number] ARTHROPLASTY TOTAL KNEE LEFT Scheduled Procedures Name Priority Associated Diagnoses Date/Ti me ARTHROPLASTY TOTAL KNEE left knee osteoarthritis 10/23/2024 10:00 AM DRY LUMBER GRADER ESOPHAGOGASTRODUODENOSCOPY Dysphagia, unspecified type documented as of this encounter Visit Diagnoses Not on filedocumented in this encounter Care Teams Senior Project Coordinator Relationship Specialty Start Date End Date Wolfgang Serrano MD PCP - General Family Medicine 05/05/23 08/02/24 Unknown, Notinfile 03/12/22 [place] [address] [facility] [address] [place] [address] 03/12/22 Chuy Enriquez MD [address] [facility] [address] [place] [address] Consulting Physician Pulmonary Disease 10/13/23 Luis Felipe Cedillo MD [address] [facility] [address] [address] Consulting Physician Gastroenterology 10/13/23 documented as of this encounter
--- OUTSIDE RECORDS SUMMARY | 2024-10-11 01:57 | XMS_ITS | Encounter Summary ---
Author Organization [facility] Healthcare Address [address] [place] [address] Care Team Providers Care Recoil Spring Winder Name Role Phone Mark Ramos MD Primary Care Provider [phone] Unknown, Notinfile Unavailable Unavailable Santino Funk MD Unavailable Reason for Visit * Auth/Cert (Routine) Specialty Diagnoses / Procedures Referred By Contac t Referred To Contact Diagnoses Coffee ground emesis GI Bleed Procedures n/a Referral ID Status Reason Start Date Expiration Date Visits Re quested Visits Authorized [id number] 1 1 Encounter Details Date Type Department Care Team (Latest Contact Info) Description 10/11/2023 10:40 AM QUALITY MEASUREMENT SPECIALIST - 10/11/2023 11:10 AM QUALITY MEASUREMENT SPECIALIST Surgery [facility] [address] [place] [id number] Jose Martin Gonzalez MD [address] [place] [id number] ESOPHAGOGASTRODUODENOSCOPY BIOPSY Surgery Details Date/Time Status Location OR Service Patient Class Case Class Case Type Trauma Case? 10/11/2023 10:40 AM Posted [facility] ENDOSCOPY GI 09 Gastroenterology Inpatient Emergent Panel 1 Procedure LRB Anes Op Region Wound Class Comments ESOPHAGOGASTRODUODENOSCOPY BIOPSY N/A Choice Surgeon Surgeon Role Service Panel Jose Martin Gonzalez MD Primary Gastroenterology 1 documented in this encounter Social History Tobacco [...] relatives? Three times a week 11/25/2021 Attends [employer] Not on file 11/25 Active Member [...] slept in a fci (including now)? No 11/25/2021 Personal Safety Answer Date Recorded Getting School Help Needed Denies 10/10 Sex and Gender Information Value Date Recorded Sex Assigned at Not on file Legal Sex Male 3:25 PM QUALITY MEASUREMENT SPECIALIST Gender Identity Not on file Sexual Orientation Not on file documented as of this encounter Last Filed Vital Signs Vital Sign Reading Time Taken Comments Blood Pressure 130/76 10/11/2023 5:58 AM QUALITY MEASUREMENT SPECIALIST Pulse 75 10/11/2023 5:58 AM QUALITY MEASUREMENT SPECIALIST Temperature 36.6 ??C (97.9 ??F) 10/11/2023 5:58 AM CS T Respiratory Rate 16 10/11/2023 5:58 AM QUALITY MEASUREMENT SPECIALIST Oxygen Saturation 98% 10/11/2023 5:58 AM QUALITY MEASUREMENT SPECIALIST Inhaled Oxygen Concentration - - Weight 100.9 kg (222 lb 8 oz) 10/10/2023 9:08 PM QUALITY MEASUREMENT SPECIALIST Height 180.3 cm (5' 11 ) 10/10/2023 9:08 PM QUALITY MEASUREMENT SPECIALIST Body Mass Index 31.03 10/10/2023 9:08 PM QUALITY MEASUREMENT SPECIALIST documented in this encounter Discharge Summaries * Mita Brown MD - 10/13/2023 11:52 AM CST Inpatient Discharge Summary Patient Name - Gunjan Gtz Jr. Patient Age - 78 yrs Patient - [id number] [facility] - [id number] Document Creation Date: 10/13/2023 Admitting Provider, : Jose Martin Gonzalez MD Discharge Provider, : Mita Brown MD Primary Care Physician at Discharge: Mark Ramos MD [phone] Admission Date: 10/10/2023 Discharge Date/time: 10/13/2023 Admission Location: [facility] Hospital LOS - LOS: 3 days DETAILS OF HOSPITAL STAY Hospital Problems/Diagnoses Principal Problem: Upper GI bleed Active Problems: Idiopathic peripheral neuropathy Coffee ground emesis Acquired hypothyroidism Acute blood loss anemia Reason for Hospitalization: Upper GI bleed Incidental left lung nodule Hospital Course: 78 YO M with PMH hypothyroidism, cognitive impairment transferred for further evaluation of GI Bleed Two months ago, the patient noted he started having black stools. He did discuss this with his primary care provider who recommended stool softeners. He also developed burning epigastric abdominal pain radiating into the chest 2 months ago that was associated with food intake. One day prior to presentation, after eating he developed severe epigastric and chest pain. He leaned forward and had several voluminous episodes of black emesis. He presented to [facility]. Hecontinued to have episodes of emesis in the ED he states nearly filling an emesis bag right away. Of note, in 1979 patient states he developed a food bolus while eating a hot dog at a sports game. He underwent an EGD where the bolus was retrieved. He recalls that he also had a hiatal hernia repair. His recovery was complicated by esophageal rupture. He states he was hospitalized for 3 months and was told he would not make it. At [place], Vitals were stable. Initial labs showed Hgb 14.3, troponin negative x 3. Stool was guaiac positive EKG negative for acute ischemic changes CT A/P showed a patulous esophagus. 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 He was transferred for GI evaluation. s/p EGD 10/11 with diverticulum at GE junction, esophageal ulcers without bleeding or stigmata of recent bleeding. Pathology pending. Single, nonbleeding gastric polyp. Hemoglobin remained stable no more episodes of dark stools or blood in stones cleared by GI recommended PPI once daily indefinitely. Path results are pending. Follow-up with repeat EGD in 8-10 weeks for esophageal ulcer healing check advised patient wanting to follow-up with current GI team- follow-up information provided. Incidental 12 mm right lower lobe nodule on CT scan case was discussed with laboratory helper Dr. Enriquez and patient-advised follow-up with repeat CT chest in 3-4 months.Updated patient about f/u withDr Enriquez. Patient discharged stable condition advised to avoid NSAIDs/blood thinners. Discharge Details Physical Exam at Discharge: Discharge Condition: good Pulse: 57 Resp: 16 BP: 109/53 Temp: 36.3 ??C (97.4 ??F) Weight: 100.9 kg (222 lb 8 oz) Pertinent Exam Findings at Discharge: Physical Exam Vitals and nursing note reviewed. Constitutional: Appearance: Normal appearance. HENT: Head: Normocephalic and atraumatic. Cardiovascular: Rate and Rhythm: Normal rate and regular rhythm. Pulses: Normal pulses. Heart sounds: Normal heart sounds. Pulmonary: Effort: Pulmonary effort is normal. Breath sounds: Normal breath sounds. Abdominal: General: Abdomen is flat. Palpations: Abdomen is soft. Neurological: General: No focal deficit present. Mental Status: He is alert and oriented to person, place, and time. Psychiatric: Mood and Affect: Mood normal. Discharge Disposition: Discharge to home or self care Code Status at Discharge: Full Code Active Issues & Recommended Plan for Follow-up: PCP/GI/pulmonary advised Allergies: Patient has no known allergies. Discharge Medications: Your medication list CHANGE how you take these medications Instructions Last Dose Given Next Dose Due cholecalciferol 2000 unit capsule Commonly known as: VITAMIN D-3 What changed: when to take this 2,000 Units, oral, Daily omeprazole 20 mg capsule Commonly known as: PriLOSEC What changed: how much to take how to take this when to take this 40 mg, oral, Daily tiZANidine 2 mg tablet Commonly known as: ZANAFLEX What changed: See the new instructions. TAKE 1 TABLET BY MOUTH EVERY 8 HOURS NEEDED FOR MUSCLE SPASM CONTINUE taking these medications Instructions Last Dose Given Next Dose Due albuterol HFA 90 mcg/actuation inhaler Commonly known as: PROVENTIL HFA,VENTOLIN HFA,PROAIR HFA 2 puffs, Every 4 hours PRN capsaicin 0.1 % cream Apply to your feet three to four times a day. donepeziL 10 mg tablet Commonly known as: ARICEPT 10 mg, oral, Nightly furosemide 20 mg tablet Commonly known as: LASIX 20 mg, oral, 2 times daily gabapentin 100 mg capsule Commonly known as: NEURONTIN 200 mg, oral, 3 times daily levothyroxine 150 mcg tablet Commonly known as: SYNTHROID 150 mcg, oral, Daily lidocaine 4 % adhesive patch,medicated Commonly known as: ASPERCREME 1 patch, transdermal, Daily melatonin 10 mg tablet 10 mg, oral, Nightly mirtazapine 7.5 mg tablet Commonly known as: REMERON TAKE 1 TABLET BY MOUTH ONCE DAILY AT NIGHT oxyBUTYnin XL 10 mg 24 hr tablet Commonly known as: DITROPAN-XL 15 mg, oral, Nightly sildenafiL (pulm.hypertension) 20 mg tablet Commonly known as: REVATIO 20 mg, oral, Daily turmeric root extract 500 mg capsule 1,000 mg, oral, Nightly STOP taking these medications diclofenac DR 50 mg EC tablet Commonly known as: VOLTAREN ASK your doctor about these medications Instructions Last Dose Given Next Dose Due tamsulosin 0.4 mg extended release capsule Commonly known as: FLOMAX 0.4 mg, Nightly Where to Get Your Medications These medications were sent to [address] [facility] [address] [facility] [address] omeprazole 20 mg capsule Time Spent in Discharge Process: I have spent 33 minutes on discharge planning activities. Time spent was on Coordination of care, Follow up , Counselling with patient/family, discharge exam, parent/patient education, PCP communication, and Other provider communication Test Results Pending at Discharge (If Blank, None Found): Operative Procedures Performed (If Blank, None Found): Procedure(s): ESOPHAGOGASTRODUODENOSCOPY BIOPSY Outpatient Follow-Up: Future Appointments Date Time Provider Department Center 11/12/2023 9:00 AM Marlene Thornton MD [facility] Contact Information for Follow-ups Mark Ramos MD Specialty: Family Medicine Relationship: PCP - General [facility] [address] [address] Next Steps: Follow up Comments: Follow up with established provider: 1 week Questions: To provider: MARK RAMOS Kiran Varma, MD Specialty: Pulmonary Disease, Internal Medicine, Critical Care Med Relationship: Consulting Physician [address] [place] [address] [facility] [address] Next Steps: Follow up Comments: Follow up with established provider: in 3 months , repeat CT chest Questions: To provider: MORGAN ENRIQUEZ Barry K., MD Specialty: Gastroenterology, Internal Medicine Relationship: Consulting Physician [address] [place] [address] [facility] [address] Next Steps: Follow up Comments: Follow up with established provider: Other (specify) 8-10 weeks Questions: To provider: CARROLL CEDILLO Please schedule an appointment with the following provider(s): Mark Ramos MD [address] [place] [id number] Morgan Enriquez MD [address] [place] [address] [facility] [address] Carroll Cedillo MD [address] [place] [address] [facility] [address] ANCILLARY INFORMATION Other Procedures & Diagnostic Tests: CT Chest Abdomen Pelvis W Contrast Result Date: 10/11/2023 EXAMINATION: Computed tomography of chest/abdomen/pelvis with [...] nodularity compared to prior study in 2020. Bones: No suspicious osseous lesion. ABDOMEN/PELVIS Liver: Liver is normal, containing a simplecyst in segment IVb.. No biliary ductal dilatation. [...] No lymphadenopathy. Bones: No suspicious osseous lesion. A 12 x 12 mm pulmonary nodule in the lateral aspect of the right costophrenic sulcus, new since 2019, is suspicious for primary lung malignancy. Electronically signed by: Jayshree Giles MD, Ph.D CT Body Outside Reference Result Date: 10/10/2023 EXAMINATION: Images For Reference Purposes Only These images are for Reference purposes only and have not been reviewed by [facility] Radiology. There will be no report generated by a [facility] Radiologist. Recent Labs: Recent Labs Lab Units 10/13/23 0604 10/12/23 0445 10/11/23 1521 10/11/23 0556 WBC K/cumm 7.9 9.8 -- 7.8 HEMOGLOBIN g/dL 11.7* 11.3* 13.3 11.9* HEMATOCRIT % 35.2* 34.7* 41.4 35.9* PLATELETS K/cumm 242 233 -- 241 Recent Labs Lab Units 10/13/23 0604 10/12/235 10/11/23 1521 10/11/23 0556 WBC K/cumm 7.9 9.8 -- 7.8 HEMOGLOBIN g/dL 11.7* 11.3* 13.3 11.9* HEMATOCRIT % 35.2* 34.7* 41.4 35.9* PLATELETS K/cumm 242 233 -- 241 NEUTROS PCT % 47.7 60.4 -- 56.5 LYMPHS PCT % 37.0 26.8 -- 28.4 MONOS PCT % 10.1 10.0 -- 10.5 EOS PCT % 3.5 2.0 -- 3.3 Recent Labs Lab Units 10/12/23 0445 10/10/23 2332 SODIUM mmol/L 139 139 POTASSIUM PLASMA mmol/L 4.4 4.4 CHLORIDE mmol/L 107 104 CO2 mmol/L 24 25 BUN SERUM mg/dL 20 28* CREATININE mg/dL 1.25 1.25 [id number] mL/min/1.73 m2 59 59 GLUCOSE mg/dL 116 109 CALCIUM mg/dL 8.6 9.1 Recent Labs Lab Units 10/12/23 0445 10/10/23 2332 SODIUM mmol/L 139 139 POTASSIUM PLASMA mmol/L 4.4 4.4 CHLORIDE mmol/L 107 104 CO2 mmol/L 24 25 ANIONGAP mmol/L 8 10 GLUCOSE mg/dL 116 109 BUN SERUM mg/dL 20 28* CREATININE mg/dL 1.25 1.25 CALCIUM mg/dL 8.6 9.1 No lab exists for component: LABALBU Lab Results Component Value Date GLUCOSE 116 10/12/2023 GLUCOSE 109 10/10/2023 GLUCOSE 103 10/26/2022 Implant: Implants Type Not Specified [employer] 201.050 Nif - [id number] - Implanted (Bilateral) Knee Inventory item: [employer] Graft Bone Filler Resrb Inj Accufill 5cc Granules 201.050 Model/Cat number: 201.050 Equipment Analyst: F?rsat Bu F?rsat Knee Terapios Lot number: [id number] Size: 5ml As of 09/22/2018 Status: Implanted Subchondroplasty Knee Kit - Implanted (Bilateral) Knee Model/Cat number: 402.203(201.050) Serial number: [id number] Equipment Analyst: F?rsat Bu F?rsat Knee Terapios Lot number: [id number] As of 09/22/2018 Status: Implanted System Accumix Bone Cement - [id number] - Implanted Inventory item: [employer] Accumix Self Contain System Cement Mixing Sterile Disposable 311.100 Model/Cat number: 311.100 Equipment Analyst: F?rsat Bu F?rsat Knee Terapios Lot number: [id number] As of 09/22/2018 Status: Implanted [employer] [id number] Palacos R+G High Viscosity Cement Bone Gentamicin Arthroplasty - [id number] - Implanted (Right) Knee Inventory item: [employer] Palacos R+G High Viscosity Cement Bone Gentamicin Arthroplasty [id number] Model/Cat number: [id number] Equipment Analyst: [employer] Lot number: [id number] As of 11/24/2021 Status: Implanted [employer] [id number] Persona Cruciate Retain Knee Right 11 Narrow Component Femoral - [id number] - Implanted (Right) Knee Inventory item: [employer] Component Femoral Knee Porous Cruciate Retaining Narrow Right Persona Trabecular Metal Size 11 [place] Chromium [id number] Model/Cat number: [id number] Equipment Analyst: [employer] Lot number: [id number] As of 11/24/2021 Status: Implanted [employer] [id number] Persona 35mm Knee Component Patellar All Poly Latex Free - [id number] - Implanted (Right) Knee Inventory item: [employer] Persona 35mm Knee Component Patellar All Poly Latex Free [id number] Model/Cat number: [id number] Equipment Analyst: [employer] Lot number: [id number] As of 11/24/2021 Status: Implanted [employer] [id number] Persona 14mm 30+ Mm Knee Tibia Taper Extension Stem - [id number] - Implanted (Right) Knee Inventory item: [employer] Persona 14mm 30+ Mm Knee Tibia Taper Extension Stem [id number] Model/Cat number: [id number] Equipment Analyst: [employer] Lot number: [id number] As of 11/24/2021 Status: Implanted [employer] [id number] Persona Natural Tibia Stem Knee Right 5d G Baseplate Tibial - [id number] - Implanted (Right) Knee Inventory item: [employer] Persona Natural Tibia Stem Knee Right 5d G Baseplate Tibial [id number] Model/Cat number: [id number] Equipment Analyst: [employer] Lot number: [id number] As of 11/24/2021 Status: Implanted [employer] [id number] Persona 10mm Knee Insert Articular Vivacit-E Sterile - [id number] - Implanted (Right) Knee Inventory item: [employer] Persona 10mm Knee Insert Articular Vivacit-e Sterile [id number] Model/Cat number: [id number] Equipment Analyst: [employer] Lot number: [id number] As of 11/24/2021 Status: Implanted General Precautions (If Blank, None Found): Isolation Status: No active isolations Nutritional Status and in-house recommendations: Dietary Orders (From admission, onward) Start Ordered 10/11/23 1407 Adult Diet GI Diets; GI Soft Diet effective now Question Answer Comment ([facility]) Diet type GI Diets GI: GI Soft 10/11/23 1407 Anticoagulation Indication: INR: No results found for requested labs within last 30 days. Warfarin Administrations (last 168 hours) None Oxygen Status: No data found. Wound Care Instructions Negative Pressure Wound Therapy Anterior;Right Knee (Active) Active LDAs (If Blank, None Found): Patient Emergency Contact: Primary Emergency Contact: Yakov Gtz, Immunization Status at Discharge Immunization History Administered Date(s) Administered Influenza, Trivalent, High Dose, Split, Preservative Free, Intramuscular 12/30/2019 Moderna SARS-CoV-2 Monovalent Vaccination (12+ YRS) 11/14/2020, 12/12/2020 Mita Brown MD ITY MEASUREMENT SPECIALIST ITY MEASUREMENT SPECIALIST documented in this encounter Medications at Time [...] mouth daily 60 capsule 11 10/13/2023 4 sildenafiL, pulm.hypertension, (REVATIO) 20 mg tablet Take 1 tablet (20 mg total) by mouth daily 04/17/2022 4 documented as of this encounter Ordered Prescriptions Prescription Sig Dispense Quantity Refills Last Filled Start Date End Date omeprazole (PriLOSEC) 20 mg capsule Take 2 capsules (40 mg total) by mouth daily 60 capsule 11 10/13/2023 4 documented in this encounter Discharge Disposition Disposition Code Departure Means Destination Comment s Discharge to home or self care documented in this encounter Progress Notes * Mita Brown MD - 10/12/2023 12:59 PM CST General Medicine Daily Progress Admit date: 10/10/2023 9:07 PM Reason for visit/follow up Upper GI bleed. New Symptoms Patient seen earlier today complaining of mild epigastric discomfort and ongoing constipation. Rest of review of system negative. Data Vitals: 24hr Min/Max: Temp Min: 36.2 ??C (97.1 ??F) Max: 36.7 ??C (98 ??F) Pulse Min: 65 Max: 76 BP Min: 116/73 Max: 137/84 Resp Min: 16 Max: 22 SpO2 Min: 99 % Max: 100 % Most Recent : Vitals: 10/12/23 1155 BP: 137/84 Pulse: 72 Resp: 18 Temp: 36.4 ??C (97.6 ??F) SpO2: 99% I/O last 2 completed shifts: In: 840 [P.O.:240; I.V.:600] Out: 140 [Urine:140] I/O this shift: In: 240 [P.O.:240] Out: - Lab/Radiology/Diagnostic Review: Recent Labs Lab Units 10/12/235 10/10/23 2332 SODIUM mmol/L 139 139 POTASSIUM PLASMA mmol/L 4.4 4.4 CHLORIDE mmol/L 107 104 CO2 mmol/L 24 25 BUN SERUM mg/dL 20 28* CREATININE mg/dL 1.25 1.25 GLUCOSE mg/dL 116 109 CALCIUM mg/dL 8.6 9.1 Recent Labs Lab Units 10/12/23 0445 10/11/23 1521 10/11/23 0556 10/10/23 2332 WBC K/cumm 9.8 -- 7.8 9.1 HEMOGLOBIN g/dL 11.3* 13.3 11.9* 12.9* HEMATOCRIT % 34.7* 41.4 35.9* 39.6 PLATELETS K/cumm 233 -- 241 250 Physical Exam: General appearance: alert, cooperative, no distress, oriented to person, place, and time Lungs: breath sounds normal and symmetric; no rales or wheezes Heart: regular rhythm, normal S1 and S2, without murmurs, gallops or rubs Abdomen: soft without mass, non-tender, with normal bowel sounds Extremities: no clubbing, cyanosis or edema Head: Normocephalic, without trauma Eyes: sclera and conjunctiva clear, EOMI and PERRLA, lids normal Nose: nares open; no septal deviation is noted Joints: ranges of motion normal without inflammation, effusion or deformity Skin: no rashes or other abnormalities are noted Neurologic: mental status normal; alert and oriented X 3; cranial nerves II - XII are grossly intact Assessment and plan Principal Problem: Upper GI bleed Active Problems: Idiopathic peripheral neuropathy Coffee ground emesis Acquired hypothyroidism Acute blood loss anemia Upper GI bleed suspect with esophageal ulcer status post EGD 10/11 noted. Continue PPI per GI. Follow-up pathology results. Okay to advance diet as tolerated. Monitor H&H. Acute blood loss anemia as above with upper GI bleed suspected. Transfuse if hemoglobin less than 7. Hypothyroidism continue levothyroxine. Mild cognitive impairment continue donepezil. Neuropathic pain on gabapentin These fluid and electrolyte abnormalities are being treated, evaluated or monitored: No fluid or electrolyte disorders Discussed with case manager specialist and social work therapist regarding the discharge planning. Medical complexity / risk: Current Code Status: Full Code There may be grammatical errors in this note due to use of voice recognition software. Portions of the record may have been created with voice recognition software. Occasional wrong-word or '[id number]' substitutions may have occurred due to the inherent limitations of voice recognition software. Read the chart carefully and recognize, using context, where substitutions have occurred. Please contact me directly with questions. Mita Brown MD ITY MEASUREMENT SPECIALIST * Taylor Bland, PHYSICIAN ADVISOR - 10/12/2023 9:47 AM CST Gastroenterology Progress Note SUBJECTIVE Interval History: Patient seen sitting in bed s/p EGD 10/11 with diverticulum at GE junction, esophageal ulcers without bleeding or stigmata of recent bleeding. Pathology pending. Single, nonbleeding gastric polyp. Patient now tolerating GI soft diet, no overt blood loss per GI source overnight. Hemoglobin stable. Continues with intermittent hiccups. ASSESSMENT and PLAN Coffee-ground emesis-EGD with findings above. GI recommend p.o. PPI once daily indefinitely. Await path. Okay to advance diet as tolerated. Repeat EGD in 8-10 weeks for esophageal ulcer healing check. Patient lives in [place], [place] and can see a GI provider closer to home. Gastroenterology will sign off on this patient. No new Assessment & Plan notes have been filed under this hospital service since the last note was generated. Service: Gastroenterology ROS Review of Systems OBJECTIVE Vitals: BP 116/73 (BP Location: Right arm) Pulse 70 Temp 36.2 ??C (97.2 ??F) (Oral) Resp 16 Ht 180.3 cm (5' 11 ) Wt 100.9 kg (222 lb 8 oz) SpO2 100% BMI 31.03 kg/m?? Physical Exam: Physical Exam Lab Results Recent Labs Lab Units 10/12/23 0445 10/11/23 1521 10/11/23 0556 10/10/23 2332 WBC K/cumm 9.8 -- 7.8 9.1 HEMOGLOBIN g/dL 11.3* 13.3 11.9* 12.9* HEMATOCRIT % 34.7* 41.4 35.9* 39.6 PLATELETS K/cumm 233 -- 241 250 Recent Labs Lab Units 10/12/23 0445 10/10/23 2332 SODIUM mmol/L 139 139 POTASSIUM PLASMA mmol/L 4.4 4.4 CHLORIDE mmol/L 107 104 CO2 mmol/L 24 25 ANIONGAP mmol/L 8 10 GLUCOSE mg/dL 116 109 BUN SERUM mg/dL 20 28* CREATININE mg/dL 1.25 1.25 CALCIUM mg/dL 8.6 9.1 Radiology Results last 24 hours No results found. Cosigned by Errol Viveros MD at 10/12/2023 1:38 PM QUALITY MEASUREMENT SPECIALIST ITY MEASUREMENT SPECIALIST ITY MEASUREMENT SPECIALIST * Tyrel Fatima MD - 10/11/2023 10:27 AM CST General Medicine Daily Progress Background: Patient admitted on 10/10/2023 with chief complaint of anemia - upper gi bleed suspected and transferred from [facility] for gi intervention Today: No reports of vomiting since [place] yesterday. Pt lives at home with . We discussed chest pain - no cardiac hx. Has appointment with pulm - gets dyspnea on exerition but comfortable now Historian: Alejandro Taylro at bedside as we are discussing stability / timing for egd Impression: Acute blood loss anemia -- hemoglobin 14.3 to 11.9, macrocytic anemia Principal Problem: Upper GI bleed Active Problems: Idiopathic peripheral neuropathy Coffee ground emesis Acquired hypothyroidism Aortic ulcer - infrarenal, 3cm, seen at outside hospital and described as penetrating atherosclerotic ulcer Today's Plan: Asked to see patient for chest pain. This is non cardiac and either pleuritic, musculoskeletal, or related to esophageal disease. Safe for egd today Some dementia per history. He fakes it well. Unclear if he is on nsaids. Lives with For acute blood loss anemia - I am in support of egd today given hemoglobin drop and ongoing symptoms. He has lost weight (10# over 2 months) -- needs verification, he says intentional due to not eating as much For anemia - serial h/h. Keep hemoglobin > 7. Suspect upper gi bleed and pud. Ppi. Check tsh. Folate and b12 normal last year. Reasonable to repeat Estimated Day of Discharge and Souza milestones: > 2 mn Fluid and Electrolyte management: Recent Labs Lab Units 10/10/23 2332 SODIUM mmol/L 139 POTASSIUM PLASMA mmol/L 4.4 CHLORIDE mmol/L 104 CO2 mmol/L 25 ANIONGAP mmol/L 10 GLUCOSE mg/dL 109 BUN SERUM mg/dL 28* CREATININE mg/dL 1.25 CALCIUM mg/dL 9.1 These fluid and electrolyte abnormalities are being treated, evaluated or monitored: No fluid or electrolyte disorders Additional Data Reviewed: Recent Labs Lab Units 10/11/23 0556 10/10/23 2332 WBC K/cumm 7.8 9.1 HEMOGLOBIN g/dL 11.9* 12.9* HEMATOCRIT % 35.9* 39.6 PLATELETS K/cumm 241 250 Additional work done today: I have spoken with the following external providers: taylor Subjective/Objective Objective Vitals: 24hr Min/Max: Temp Min: 36.6 ??C (97.9 ??F) Max: 37.4 ??C (99.3 ??F) Pulse Min: 75 Max: 84 BP Min: 126/86 Max: 130/76 Resp Min: 16 Max: 16 SpO2 Min: 98 % Max: 98 % Most Recent : Vitals: 10/11/23 0558 BP: 130/76 Pulse: 75 Resp: 16 Temp: 36.6 ??C (97.9 ??F) SpO2: 98% No intake/output data recorded. No intake/output data recorded. Physical Exam: Pt in no acute distress, alert and oriented x 4 Eyes: Pupils are equal, sclera non icteric Lungs: Clear to auscultation bilateral Heart: Regular rate and rhythm without murmur Abd: Audible bowel sounds, Non Tender, Soft, Non distended Skin: No rash or edema Neuro: No focal motor sensory deficits Tyrel Fatima MD, FLIP, [facility] ITY MEASUREMENT SPECIALIST documented in this encounter H&P Notes * Manuel Carreno MD - 10/10/2023 11:05 PM CST Images from the original note were not included. History and Physical Date of service: 10/10/23 Primary care provider: Mark Ramos MD Chief Complaint: Chest and abdominal pain Subjective HPI: 78 YO M with PMH hypothyroidism, cognitive impairment transferred for further evaluation of GI Bleed Two months ago, the patient noted he started having black stools. He did discuss this with his primary care provider who recommended stool softeners. He also developed burning epigastric abdominal pain radiating into the chest 2 months ago that was associated with food intake. One day prior to presentation, after eating he developed severe epigastric and chest pain. He leaned forward and had several voluminous episodes of black emesis. [facility]. Hecontinued to have episodes of emesis in the ED he states nearly filling an emesis bag right away. Of note, in 1979 patient states he developed a food bolus while eating a hot dog at a sports game. He underwent an EGD where the bolus was retrieved. He recalls that he also had a hiatal hernia repair. His recovery was complicated by esophageal rupture. He states he was hospitalized for 3 months and was told he would not make it. At [place], Vitals were stable. Initial labs showed Hgb 14.3, troponin negative x 3. Stool was guaiac positive EKG negative for acute ischemic changes CT A/P showed a patulous esophagus. 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 He was transferred for GI evaluation. At bedside patient is uncomfortable. He is having a severe bout of pain with frequent belching. Past Medical History: Diagnosis Date Acute gastric ulcer without hemorrhage or perforation Ulcer, gastric, acute - (Added by TW Conv) Alzheimer's dementia ([facility]) Asthma Back pain Cataract Closed fracture of left tibial plateau with delayed healing Closed fracture of right tibial plateau with delayed healing Closed nondisplaced osteochondral fracture of left patella with delayed healing Closed osteochondral fracture of patella, right, with delayed healing, subsequent encounter Clotting disorder ([facility]) ([facility]) Complex tear of medial meniscus of left knee as current injury Complex tear of medial meniscus of right knee as current injury Cramps of lower extremity Diverticulitis of colon Easy bruisability Fatigue Frequent urination Gastroesophageal reflux disease GERD Hypothyroidism Incontinence of urine Muscle weakness Osteoarthritis Osteoarthritis Peptic ulcer Peptic ulcer disease Seizures ([facility]) 1997 last seizure in 1997 [...] Admission Medication Sig Dispense Refill Last Dose acetaminophen (TYLENOL) 500 mg tablet Take 1 tablet (500 mg total) by mouth every 6 (six) hours as needed for pain 30 tablet 0 albuterol HFA (PROVENTIL HFA,VENTOLIN HFA,PROAIR HFA) 90 mcg/actuation inhaler 2 puffs every 4 (four) hours as needed capsaicin 0.1 % cream Apply to your feet three to four times a day. 60 g 5 cholecalciferol (VITAMIN D-3) 2000 unit capsule Take 1 capsule (2,000 Units total) by mouth daily (Patient taking differently: Take 1 capsule (2,000 Units total) by mouth nightly) [address] (VOLTAREN) 50 mg EC tablet Take 1 tablet by mouth twice daily as needed for pain 60 tablet 0 donepeziL (ARICEPT) 10 mg tablet Take 1 tablet by mouth nightly 30 tablet 0 gabapentin (NEURONTIN) 100 mg capsule TAKE 2 CAPSULES BY MOUTH THREE TIMES DAILY 180 capsule 0 levothyroxine (SYNTHROID) 150 mcg tablet Take 1 tablet (150 mcg total) by mouth daily lidocaine (ASPERCREME) 4 % adhesive patch,medicated Place 1 patch on the skin daily for 12 days 12 patch 0 magnesium oxide (MAG-OX) 250 mg (150.8 mg elemental) tablet Take 1 tablet (250 mg total) by mouth nightly mirtazapine (REMERON) 7.5 mg tablet TAKE 1 TABLET BY MOUTH ONCE DAILY AT NIGHT omeprazole (PriLOSEC) 20 mg capsule take 1 capsule by oral route every day before a meal 0 0 oxybutynin XL (DITROPAN-XL) 10 mg 24 hr tablet Take 1 tablet (10 mg total) by mouth nightly polyethylene glycol (MIRALAX) 17 gram packet Take 1 packet (17 g total) by mouth daily as needed for constipation (Patient not taking: Reported on 05/04/2023) senna-docusate (PERICOLACE) 8.6-50 mg Take 1 tablet by mouth nightly sildenafiL, pulm.hypertension, (REVATIO) 20 mg tablet Take 1 tablet (20 mg total) by mouth daily tamsulosin (FLOMAX) 0.4 mg extended release capsule Take 1 capsule (0.4 mg total) by mouth nightly (Patient not taking: Reported on 05/04/2023) tiZANidine (ZANAFLEX) 2 mg tablet TAKE 1 TABLET BY MOUTH EVERY 8 HOURS NEEDED FOR MUSCLE SPASM 60 tablet 0 traMADoL (ULTRAM) 50 mg tablet TAKE 1 TABLET BY MOUTH EVERY 6 HOURS NEEDED FOR PAIN 20 tablet 0 traZODone (DESYREL) 50 mg tablet Take by mouth nightly 1/2 to 1 tablet turmeric root extract 500 mg capsule Take 1,000 mg by mouth nightly UNABLE TO FIND Take 1 each by mouth nightly Med Name: muscle cramp pain reliever Patient takes 3 different OTC homeopathic muscle cramp medications No Known Allergies Social History Tobacco Use Smoking status: Former Types: Cigarettes Start date: 1965 Quit date: 1966 Years since quittin.0 Smokeless tobacco: Never Substance and Sexual Activity [...] Father Heart attack Sister Review of Systems: (unless specified above) 1. Constitutional Denies: weight loss, weight gain, fever, chills, night sweats, fatigue 2. Eyes Denies: change in vision, double vision, eye pain, eye discharge, icterus 3. ENT Denies: change in hearing, ear pain, ear discharge, nose bleed, nasal congestion, sore throat 4. Respiratory Denies: SOB, wheezing, cough, sputum, hemoptysis 5. CV Denies: chest pain, palpitations, syncope, edema, dyspnea 6. GI Denies: change in bowel habits, diarrhea, constipation, BRBPR +abdominal pain, decreased appetite, nausea, vomiting, melena 7. Denies: dysuria, frequency, hematuria, nocturia, urgency 8. Metabolic Denies: cold intolerance, heat intolerance, polyphagia, polydipsia 9. Neurologic Denies: headache, dizziness, seizure, change in mental status, focal weakness, focal numbness 10. Musculoskeletal Denies: myalgia, joint pain, joint redness, joint swelling, extremity pain 11. Skin Denies: rash or edema Objective Vitals: Vitals: 10/10/232115 BP: 126/86 Pulse: 84 Resp: 16 Temp: 37.4 ??C (99.3 ??F) SpO2: 98% 24hr Min/Max: Temp Min: 37.4 ??C (99.3 ??F) Max: 37.4 ??C (99.3 ??F) Pulse Min: 84 Max: 84 BP Min: 126/86 Max: 126/86 Resp Min: 16 Max: 16 SpO2 Min: 98 % Max: 98 % Most Recent : Vitals: 10/10/232115 BP: 126/86 Pulse: 84 Resp: 16 Temp: 37.4 ??C (99.3 ??F) SpO2: 98% No intake/output data recorded. No intake/output data recorded. Physical exam: General appearance: NAD, conversant Eyes: EOMI, PERRLA, sclera non icteric HENT: Atraumatic; oropharynx clear with moist mucous membranes and no mucosal ulcerations; normal hard and soft palate Neck: supple Lungs: Clear to auscultation bilaterally, normal respiratory effort Heart: RRR, no murmurs Abd: NABS,+epigastrium and RUQ is very tender to palpation. Abdomen is otherwise soft. Neuro: No new gross deficits appreciated Musculoskeletal: no gross joint erythema, edema, tenderness Skin: Normal temperature, turgor, no rashes Psych: Appropriate affect, alert and oriented to person, place and time Vital signs and nursing notes reviewed Lab/Radiology/Diagnostic Review: Recent Labs Lab Units 10/10/23 2332 WBC K/cumm 9.1 HEMOGLOBIN g/dL 12.9* HEMATOCRIT % 39.6 PLATELETS K/cumm 250 Imaging personally reviewed: No orders to display Assessment/Plan Principal Problem: Upper GI bleed Active Problems: Idiopathic peripheral neuropathy Coffee ground emesis Acquired hypothyroidism Upper GI bleed - concern for peptic ulcer disease H/o hiatal hernia, self-reported h/o esophageal rupture (1979) - Hgb 14.3 --> 12.9 - CT with a palatous esophagus - type and screen, trend Hgb, Hct q6hr, transfuse Hgb <7 - IVF, IV protonix BID, NPO - on po voltaren BI. Stop NSAIDs - consult to GI Patient did develop significant pain with even PO meds with sips of water. Will keep strict NPO. 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 Referring MD: Mark Ramos M.D. Medicines: See the Anesthesia note for documentation of the administered medications Complications: No immediate complications. Estimated Blood Loss: Estimated blood loss: none. Procedure: Pre-Anesthesia Assessment: - Prior to the procedure, a History and Physical was performed, and patient medications and allergies were reviewed. The patient is competent. The risks and benefits of the procedure and the sedation options and risks were discussed with the patient. All questions were answered and informed consent was obtained. Patient identification and proposed procedure were verified by the physician, the nurse, the anesthesiologist and the lining baster in the pre-procedure area in the endoscopy suite. Mental Status Examination: alert and oriented. Airway Examination: normal oropharyngeal airway and neck mobility. Respiratory Examination: clear to auscultation. CV Examination: normal. Prophylactic Antibiotics: The patient does not require prophylactic antibiotics. Prior Anticoagulants: The patient has taken no anticoagulant or antiplatelet agents. ASA Grade Assessment: III - A patient with severe systemic disease. After reviewing the risks and benefits, the patient was deemed in satisfactory condition to undergo the procedure. The anesthesia plan was to use general anesthesia. Immediately prior to administration of medications, the patient was re-assessed for adequacy to receive sedatives. The heart rate, respiratory rate, oxygen saturations, blood pressure, adequacy of pulmonary ventilation, and response to care were monitored throughout the procedure. The physical status of the patient was re-assessed after the procedure. The benefits, risks, and alternatives to the procedure and sedation were discussed and informed consent was obtained. The scope was passed under direct vision. The Endoscope was introduced through the mouth, and advanced to the second part of duodenum. The upper GI endoscopy was accomplished without difficulty. The patient tolerated the procedure well. Findings: A non-bleeding diverticulum with a large opening and no stigmata of recent bleeding was found in the distal esophagus and at the gastroesophageal junction. Few superficial esophageal ulcers with no bleeding and no stigmata of recent bleeding were found at the gastroesophageal junction. The largest lesion was 5 mm in largest dimension. Biopsies were taken with a cold forceps for histology. Verification of patient identification for the specimen was done. Estimated blood loss was minimal. There is no endoscopic evidence of stenosis, stricture, varices or signs of external compression in the entire esophagus. The entire examined stomach was normal. A single 5 mm sessile polyp with no stigmata of recent bleeding was found in the gastric body. The duodenal bulb and second portion of the duodenum were normal. 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 - Esophageal ulcers with no bleeding and no stigmata of recent bleeding. Biopsied. - Normal stomach. - A single gastric polyp. - Normal duodenal bulb and second portion of the duodenum. Recommendation: - [facility] to [facility] for [facility] care. - Mechanical soft diet. - Use Protonix (pantoprazole) 40 mg PO daily. - Await pathology results. Electronically signed by Jose Martin Gonzalez MD Jose Martin Gonzalez M.D. 10/11/2023 11:40:12 AM This document was signed electronically. Number of Addenda: 0 Note Initiated On: 10/11/2023 9:59 AM Scope In: Scope Out: ITY MEASUREMENT SPECIALIST ITY MEASUREMENT SPECIALIST documented in this encounter Consult Notes * Morgan Enriquez MD - 10/13/2023 10:58 AM CSTAssociated Order(s): IP CONSULT TO PULMONOLOGY Pulmonary Consult Pulmonary problem list:: 1) 12 mm RLL nodule in a patient with - minimal to no tobacco exposure 2) Nocturnal cough - suspect is related to hiatal hernia 3) Hiatal hernia/UGIB Discussion: RLL nodule was not present in 2019. Radiographic characteristics are not overtly malignant appearing Recommendations: 1) Repeat CT chest in 3-4 months - rationale explained to family 2) Diet and lifestyle modifications discussed to reduce reflux - showed CT images to Mr. Gtz and explained the rationale 3) GI rx/EGD reviewed Discussed with Dr. Brown Reason for Consult: Lung nodule Requesting Provider: Dr. Reardon History of present illness: This patient is a 78 year old male with PMH hypothyroidism, memory deficit, gastric ulcer, esophageal perforation, who gastroenterology was asked to see in consultation for the reason above. This patient was transferred to [facility] from [facility] on 10/10 after he had approximately 3 episodes of large-volume coffee-ground emesis. He has now had 6 total episodes with last on the evening on 10/10. The patient tells me today that he has been in his usual state of health but that over the last 2 months he has noted new epigastric/chest pain which seems to be worse with eating food. There is no odynophagia or dysphagia. He takes nexium once daily but has not been helping his symptoms so he has been taking many tums daily. He has also had melenic stool over the last 2 months for which his PCP recommend stool softeners (?). There may be some nausea. He denies any recent NSAID use including baby aspirin or blood thinners. At the time of my evaluation, no significant pulmonary sx reported Remains on RA Mild cough during the day Coughing paroxysms at night Clear phlegm No hemoptysis No significant wheezing No pleuritic chest pain No fevers or chills or night sweats Hospitalization for wheezing, at [facility], noted GI issues as detailed above Minimal tobacco use in 1960's None in the last 50 years No significant asbestos exposure No active malignancy Past Medical History: Diagnosis Date Acute gastric ulcer without hemorrhage or perforation Ulcer, gastric, acute - (Added by TW Conv) Alzheimer's dementia ([facility]) Asthma Back pain Cataract Closed fracture of left tibial plateau with delayed healing Closed fracture of right tibial plateau with delayed healing Closed nondisplaced osteochondral fracture of left patella with delayed healing Closed osteochondral fracture of patella, right, with delayed healing, subsequent encounter Clotting disorder (CMS/HCC) ([facility]) Complex tear of medial meniscus [...] fracture of condyle of left femur (CMS/HCC) ([facility]) Vertigo Vision changes Visual disturbance hx of double vision, corrective lenses Past Surgical History: Procedure Laterality Date CATARACT EXTRACTION, BILATERAL Bilateral 2018 HERNIA REPAIR 1979 Hiatal Hernia repair KNEE ARTHROSCOPY Bilateral THYROIDECTOMY 12/27/2019 Medications Prior to Admission Medication Sig Dispense Refill Last Dose albuterol HFA (PROVENTIL HFA,VENTOLIN HFA,PROAIR HFA) 90 mcg/actuation inhaler 2 puffs every 4 (four) hours as needed capsaicin 0.1 % cream Apply to your feet three to four times a day. 60 g 5 cholecalciferol (VITAMIN D-3) 2000 unit capsule Take 1 capsule (2,000 Units total) by mouth daily (Patient taking differently: Take 1 capsule (2,000 Units total) by mouth nightly) [address] (VOLTAREN) 50 mg EC tablet Take 1 tablet by mouth twice daily as needed for pain 60 tablet 0 donepeziL (ARICEPT) 10 mg tablet Take 1 tablet by mouth nightly 30 tablet 0 furosemide (LASIX) 20 mg tablet Take 1 tablet (20 mg total) by mouth 2 (two) times a day gabapentin (NEURONTIN) 100 mg capsule TAKE 2 CAPSULES BY MOUTH THREE TIMES DAILY 180 capsule 0 levothyroxine (SYNTHROID) 150 mcg tablet Take 1 tablet (150 mcg total) by mouth daily lidocaine (ASPERCREME) 4 % adhesive patch,medicated Place 1 patch on the skin daily for 12 days 12 patch 0 melatonin 10 mg tablet Take 1 tablet (10 mg total) by mouth nightly mirtazapine (REMERON) 7.5 mg tablet TAKE 1 TABLET BY MOUTH ONCE DAILY AT NIGHT oxybutynin XL (DITROPAN-XL) 10 mg 24 hr tablet Take 15 mg by mouth nightly sildenafiL, pulm.hypertension, (REVATIO) 20 mg tablet Take [...] total) by mouth nightly) 60 tablet 0 turmeric root extract 500 mg capsule Take 1,000 mg by mouth nightly [DISCONTINUED] omeprazole (PriLOSEC) 20 mg capsule take 1 capsule by oral route every day before a meal 0 0 No Known Allergies Social History Tobacco Use Smoking status: Former Types: Cigarettes Start date: 1965 Quit date: 1966 Years since quittin.0 Smokeless tobacco: Never Substance and Sexual Activity [...] Father Heart attack Sister Review of Systems: General: No fevers or chills. No weight loss. Eyes: No blurry vision or eye pain ENT: No hearing deficit, nasal discharge, or sinus pain. Lungs: As detailed in the history of present illness. Cardiac: As detailed in the history of present illness. Abdomen: No melena or hematochezia. Genitourinary: No dysuria or hematuria. Skin: No rashes. Musculoskeletal: No large joint pain or swelling. Heme/Lymphatic: No venous thromboembolic disease. Endocrine: No diabetes mellitus. Neurologic: No altered mental status or focal motor deficits. Psychiatric: No agitation. Objective Vitals: Vitals: 10/13/23 0430 BP: 109/53 Pulse: 57 Resp: 16 Temp: 36.3 ??C (97.4 ??F) SpO2: 99% I/O last 2 completed shifts: In: 480 [P.O.:480] Out: - No intake/output data recorded. Physical Exam: General Appearance: Does not appear in distress. Head/Eyes/ENT: No trauma to the head. Normocephalic head is noted. No icterus is noted. Mallampati class II airway is noted. Neck: Supple without any adenopathy. Chest: Symmetric expansion bilaterally. Lung: Clear bilaterally Cardiac: Reviewed rate and rhythm Abdominal: Soft. No rigidity or severe tenderness. Extremities: ++ edema. No clubbing, or cyanosis. Skin: No rashes. Lymph Nodes: No cervical lymphadenopathy. Neurological: Awake and alert, following simple commands. Psychiatric: No agitation. Lab/Radiology/Diagnostic Review: CBC: Recent Labs Lab Units 10/13/23 0604 10/12/23 0445 10/11/23 1521 10/11/23 0556 WBC K/cumm 7.9 9.8 -- 7.8 HEMOGLOBIN g/dL 11.7* 11.3* 13.3 11.9* HEMATOCRIT % 35.2* 34.7* 41.4 35.9* PLATELETS K/cumm 242 233 -- 241 Recent Labs Lab Units 10/13/23 0604 10/12/23 0445 10/11/23 1521 10/11/23 0556 WBC K/cumm 7.9 9.8 -- 7.8 HEMOGLOBIN g/dL 11.7* 11.3* 13.3 11.9* HEMATOCRIT % 35.2* 34.7* 41.4 35.9* PLATELETS K/cumm 242 233 -- 241 NEUTROS PCT % 47.7 60.4 -- 56.5 LYMPHS PCT % 37.0 26.8 -- 28.4 MONOS PCT % 10.1 10.0 -- 10.5 EOS PCT % 3.5 2.0 -- 3.3 CMP: Recent Labs Lab Units 10/12/23 0445 10/10/23 2332 SODIUM mmol/L 139 139 POTASSIUM PLASMA mmol/L 4.4 4.4 CHLORIDE mmol/L 107 104 CO2 mmol/L 24 25 ANIONGAP mmol/L 8 10 GLUCOSE mg/dL 116 109 BUN SERUM mg/dL 20 28* CREATININE mg/dL 1.25 1.25 CALCIUM mg/dL 8.6 9.1 Coagulation: Cardiac markers: No results found for: TROPONINT ABGs: All other pertinent labs from this hospitalization were reviewed. Radiology: Imaging (Last 96 hours) 10/[address] Chest Abdomen Pelvis W Contrast 10/11 0959 EGD 10/[address] Body Outside Reference 05/16 1019 OPH IOL TEST SLU I have personally reviewed the pertinent imaging from this hospitalization. ITY MEASUREMENT SPECIALIST * Taylor Bland NP - 10/11/2023 9:10 AM CSTAssociated Order(s): IP CONSULT TO GASTROENTEROLOGY GI Consult Requesting Physician: Tyrel Fatima, * Reason for Consult: Medical Mgmt SUBJECTIVE: Gunjan Gtz Jr. is a 78 y.o. male with chief complaint of coffee ground emesis. HPI: This patient is a 78 year old male with PMH hypothyroidism, memory deficit, gastric ulcer, esophageal perforation, who gastroenterology was asked to see in consultation for the reason above. This patient was transferred to [facility] from [facility] on 10/10 after he had approximately 3 episodes of large-volume coffee-ground emesis. He has now had 6 total episodes with last on the evening on 10/10. The patient tells me today that he has been in his usual state of health but that over the last 2 months he has noted new epigastric/chest pain which seems to be worse with eating food. There is no odynophagia or dysphagia. He takes nexium once daily but has not been helping his symptoms so he has been taking many tums daily. He has also had melenic stool over the last 2 months for which his PCP recommend stool softeners (?). There may be some nausea. He denies any recent NSAID use including baby aspirin or blood thinners. However, he initially told me he was taking Voltaryn PO BID and Aleve around the clock but has retracted this. He is A&Ox4. The patient's physical exam shows tender epigastrum to palpation and he is urping with chest pain. Trop negative x3. 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 There is no lower abdominal discomfort. Last hgb 11.9 down from initial 13. BUN 28. There is remote history of ?esophageal perforation patient. This occurred in 1979 following EGD forremoval of food impaction. He cannot recall the details following this including whether he required surgical repair, etc.. Since then he has required a handful of EGD where he was found to have stomach ulcers with last approx 5 years ago. There is no GI history including surgical history per EMR. ASSESSMENT/PLAN: Coffee ground emesis- large volume, without transfusion requirement.. Unclear as to whether or not he has been taking NSAIDs. Initially said yes, then no. Documented memory impairment. Plan for continue NPO for EGD today. No NSAIDs. Start IV PPI BID. Trend H&H, transfuse as indicated. Melena- per #1. GI will continue to monitor the patient. No new Assessment & Plan notes have been filed under this hospital service since the last note was generated. Service: Gastroenterology Past Medical History: Diagnosis Date Acute gastric ulcer without hemorrhage or perforation Ulcer, gastric, acute - (Added by TW Conv) Alzheimer's dementia ([facility]) Asthma Back pain Cataract Closed fracture of left tibial plateau with delayed healing Closed fracture of right tibial plateau with delayed healing Closed nondisplaced osteochondral fracture of left patella with delayed healing Closed osteochondral fracture of patella, right, with delayed healing, subsequent encounter Clotting disorder ([facility]) ([facility]) Complex tear of medial meniscus of left knee as current injury Complex tear of medial meniscus of right knee as current injury Cramps of lower extremity Diverticulitis of colon Easy bruisability Fatigue Frequent urination Gastroesophageal reflux disease GERD Hypothyroidism Incontinence of urine Muscle weakness Osteoarthritis Osteoarthritis Peptic ulcer Peptic ulcer disease Seizures ([facility]) 1997 last seizure in 1997 SOB (shortness of breath) on exertion Subchondral insufficiency fracture of condyle of left femur ([facility]) ([facility]) Vertigo Vision changes Visual disturbance hx of double vision, corrective lenses Past Surgical History: Procedure Laterality Date CATARACT EXTRACTION, BILATERAL Bilateral 2018 HERNIA REPAIR 1979 Hiatal Hernia repair KNEE ARTHROSCOPY Bilateral THYROIDECTOMY 12/27/2019 Medications Prior to Admission Medication Sig Dispense Refill Last Dose albuterol HFA (PROVENTIL HFA,VENTOLIN HFA,PROAIR HFA) 90 mcg/actuation inhaler 2 puffs every 4 (four) hours as needed capsaicin 0.1 % cream Apply to your feet three to four times a day. 60 g 5 cholecalciferol (VITAMIN D-3) 2000 unit capsule Take 1 capsule (2,000 Units total) by mouth daily (Patient taking differently: Take 1 capsule (2,000 Units total) by mouth nightly) [address] (VOLTAREN) 50 mg EC tablet Take 1 tablet by mouth twice daily as needed for pain 60 tablet 0 donepeziL (ARICEPT) 10 mg tablet Take 1 tablet by mouth nightly 30 tablet 0 furosemide (LASIX) 20 mg tablet Take 1 tablet (20 mg total) by mouth 2 (two) times a day gabapentin (NEURONTIN) 100 mg capsule TAKE 2 CAPSULES BY MOUTH THREE TIMES DAILY 180 capsule 0 levothyroxine (SYNTHROID) 150 mcg tablet Take 1 tablet (150 mcg total) by mouth daily lidocaine (ASPERCREME) 4 % adhesive patch,medicated Place 1 patch on the skin daily for 12 days 12 patch 0 melatonin 10 mg tablet Take 1 tablet (10 mg total) by mouth nightly mirtazapine (REMERON) 7.5 mg tablet TAKE 1 TABLET BY MOUTH ONCE DAILY AT NIGHT omeprazole (PriLOSEC) 20 mg capsule take 1 capsule by oral route every day before a meal 0 0 oxybutynin XL (DITROPAN-XL) 10 mg 24 hr tablet Take 15 mg by mouth nightly sildenafiL, pulm.hypertension, (REVATIO) 20 mg tablet Take [...] total) by mouth nightly) 60 tablet 0 turmeric root extract 500 mg capsule Take 1,000 mg by mouth nightly No Known Allergies Social History Tobacco Use Smoking status: Former Types: Cigarettes Start date: 1965 Quit date: 1966 Years since quittin.0 Smokeless tobacco: Never Substance and Sexual Activity [...] Mother Heart attack Father Heart attack Sister Prior to Admission medications Medication Sig Start Date End Date Taking? Authorizing Provider albuterol HFA (PROVENTIL HFA,VENTOLIN HFA,PROAIR HFA) 90 mcg/actuation inhaler 2 puffs every 4 (four) hours as needed 02/03/23 Provider, MD Garett capsaicin 0.1 % cream Apply to your feet three to four times a day. 12/03/22 Nayan Mahajan II, MD cholecalciferol (VITAMIN D-3) 2000 unit capsule Take 1 capsule (2,000 Units total) by mouth daily Patient taking differently: Take 1 capsule (2,000 Units total) by mouth nightly 12/31/19 Last, Ruth Sravani Samira, MD diclofenac DR (VOLTAREN) 50 mg EC tablet Take 1 tablet by mouth twice daily as needed for pain 09/13/23 Carol Aceves PA donepeziL (ARICEPT) 10 mg tablet Take 1 tablet by mouth nightly 06/04/23 Nayan Mahajan II, MD furosemide (LASIX) 20 mg tablet Take 1 tablet (20 mg total) by mouth 2 (two) times a day Garett Shah MD gabapentin (NEURONTIN) 100 mg capsule TAKE 2 CAPSULES BY MOUTH THREE TIMES DAILY 10/08/23 Nayan Mahajan II, MD levothyroxine (SYNTHROID) 150 mcg tablet Take 1 tablet (150 mcg total) by mouth daily 09/19/21 Garett Shah MD lidocaine (ASPERCREME) 4 % adhesive patch,medicated Place 1 patch on the skin daily for 12 days 10/03/22 10/15/22 Albert North MD melatonin 10 mg tablet Take 1 tablet (10 mg total) by mouth nightly Garett Shah MD mirtazapine (REMERON) 7.5 mg tablet TAKE 1 TABLET BY MOUTH ONCE DAILY AT NIGHT 12/19/21 Garett Shah MD omeprazole (PriLOSEC) 20 mg capsule take 1 capsule by oral route every day before a meal 10/21/16 Nayan Mahajan II, MD oxybutynin XL (DITROPAN-XL) 10 mg 24 hr tablet Take 15 mg by mouth nightly 11/07/21 Garett Shah MD sildenafiL, pulm.hypertension, (REVATIO) 20 mg tablet Take 1 tablet (20 mg total) by mouth daily 04/17/22 Garett Shah MD tamsulosin (FLOMAX) 0.4 mg extended release capsule Take 1 capsule (0.4 mg total) by mouth nightly Patient not taking: Reported on 05/04/2023 01/29/20 Garett Shah MD tiZANidine (ZANAFLEX) 2 mg tablet TAKE 1 TABLET BY MOUTH EVERY 8 HOURS NEEDED FOR MUSCLE SPASM Patient taking differently: Take 1 tablet (2 mg total) by mouth nightly 09/08/23 Nayan Mahajan II, MD turmeric root extract 500 mg capsule Take 1,000 mg by mouth nightly Garett Shah MD acetaminophen (TYLENOL) 500 mg tablet Take 1 tablet (500 mg total) by mouth every 6 (six) hours as needed for pain 10/03/22 10/11/23 Albert North MD magnesium oxide (MAG-OX) 250 mg (150.8 mg elemental) tablet Take 1 tablet (250 mg total) by mouth nightly 10/11/23 Garett Shah MD polyethylene glycol (MIRALAX) 17 gram packet Take 1 packet (17 g total) by mouth daily as needed for constipation Patient not taking: Reported on 05/04/2023 10/11/23 Garett Shah MD senna-docusate (PERICOLACE) 8.6-50 mg Take 1 tablet by mouth nightly 10/11/23 Garett Shah MD traMADoL (ULTRAM) 50 mg tablet TAKE 1 TABLET BY MOUTH EVERY 6 HOURS NEEDED FOR PAIN 01/04/23 10/11/23 Jossie Montalvo PA traZODone (DESYREL) 50 mg tablet Take by mouth nightly 10/12 to 1 tablet 08/15/21 10/11/23 Garett Shah MD UNABLE TO FIND Take 1 each by mouth nightly Med Name: muscle cramp pain reliever Patient takes 3 different OTC homeopathic muscle cramp medications 10/11/23 Garett Shah MD Review of Systems Review of Systems Constitutional: Negative for diaphoresis, fatigue, fever and unexpected weight change. HENT: Negative for congestion, mouth sores, nosebleeds, trouble swallowing and voice change. Eyes: Negative for redness and visual disturbance. Respiratory: Negative. Negative for cough, chest tightness and shortness of breath. Cardiovascular: Negative. Negative for palpitations and leg swelling. Gastrointestinal: Positive for blood in stool and vomiting. Negative for abdominal distention, abdominal pain, anal bleeding, constipation, diarrhea, nausea and rectal pain. Endocrine: Negative for polydipsia, polyphagia and polyuria. Genitourinary: Negative for penile discharge, penile pain, penile swelling, scrotal swelling and testicular pain. Musculoskeletal: Negative for arthralgias, back pain and gait problem. Skin: Negative for color change and wound. Allergic/Immunologic: Negative for food allergies and immunocompromised state. Neurological: Negative for dizziness, seizures, syncope and light-headedness. Hematological: Does not bruise/bleed easily. Psychiatric/Behavioral: Negative for agitation, behavioral problems, confusion, decreased concentration and dysphoric mood. All other systems reviewed and are negative. OBJECTIVE: Vitals: Arrival Vitals Temp 10/10/232115 37.4 ??C (99.3 ??F) Pulse 10/10/232115 84 Resp 10/10/232115 16 BP 10/10/232115 126/86 SpO2 10/10/232115 98 % Temp src 10/10/232115 Oral Heart Rate Source -- Patient Position 10/11/23 0558 Lying BP Location 10/10/232115 Right arm FiO2 (%) -- Most Recent : Vitals: 10/10/23210710/10/23211510/11/23 0558 BP: 126/86 130/76 BP Location: Right arm Right arm Patient Position: Lying Pulse: 84 75 Resp: 16 16 Temp: 37.4 ??C (99.3 ??F) 36.6 ??C (97.9 ??F) TempSrc: Oral Oral SpO2: 98% 98% Weight: 100.9 kg (222 lb 8 oz) Height: 180.3 cm (5' 11 ) Physical exam: Physical Exam Vitals reviewed. Constitutional: General: He is not in acute distress. Appearance: Normal appearance. He is not ill-appearing or diaphoretic. HENT: Head: Normocephalic and atraumatic. Mouth/Throat: Mouth: Mucous membranes are moist. Eyes: Extraocular Movements: Extraocular movements intact. Conjunctiva/sclera: Conjunctivae normal. Cardiovascular: Rate and Rhythm: Normal rate and regular rhythm. Heart sounds: Normal heart sounds. Pulmonary: Effort: Pulmonary effort is normal. Breath sounds: Normal breath sounds. Abdominal: General: Abdomen is flat. Bowel sounds are normal. Palpations: Abdomen is soft. Tenderness: There is abdominal tenderness in the epigastric area. Musculoskeletal: Cervical back: Normal range of motion and neck supple. Skin: General: Skin is warm and dry. Neurological: General: No focal deficit present. Mental Status: He is alert and oriented to person, place, and time. Psychiatric: Mood and Affect: Mood normal. Thought Content: Thought content normal. Lab/Radiology/Diagnostic Review: Recent Labs Lab Units 10/11/23 0556 10/10/23 2332 WBC K/cumm 7.8 9.1 HEMOGLOBIN g/dL 11.9* 12.9* HEMATOCRIT % 35.9* 39.6 PLATELETS K/cumm 241 250 @LLCMP@ CT Body Outside Reference Result Date: 10/10/2023 Narrative: EXAMINATION: Images For Reference Purposes Only Impression: These images are for Reference purposes only and have not been reviewed by [facility] Radiology. There will be no report generated by a [facility] Radiologist. Cosigned by Jose Martin Gonzalez MD at 11/01/2023 4:56 PM QUALITY MEASUREMENT SPECIALIST ITY MEASUREMENT SPECIALIST ITY MEASUREMENT SPECIALIST documented in this encounter Miscellaneous Notes * Plan of Care - Tessy Woodruff RN - 10/13/2023 4:20 AM QUALITY MEASUREMENT SPECIALIST Goals: Problem: Health Behavior: Goal: Understanding of discharge needs will improve Outcome: Progressing Problem: Lack of Knowledge: Goal: Ability to state ways to decrease the risk of falls will improve Outcome: Progressing Problem: Safety: Goal: Will remain free from falls Outcome: Progressing Goal: Will remain free from injury from falls Outcome: Progressing Goal: Will remain free from falls and injury in home environment Outcome: Progressing Problem: Lack of Knowledge: Goal: Ability to develop a pain control plan will improve Outcome: Progressing Goal: Ability to identify pain intensity on a pain scale and rate it consistently will improve Outcome: Progressing Goal: Ability to notify healthcare provider of pain before it becomes unmanageable or unbearable will improve Outcome: Progressing Problem: Medication: Goal: Satisfaction with pain management regimen will improve Outcome: Progressing Problem: Sensory: Goal: Ability to identify factors that increase the pain will improve Outcome: Progressing Goal: Pain level will decrease Outcome: Progressing Clinical Goals for the Shift: VSS, pain control, call for assistance with ambulation, BM Summary: VSS. Pt reporting no pain overnight. Pt refusing bed alarm, agreeable to calling in the night when he needs to ambulate. No BM reported overnight though reports passing gas - pt stated frustration that he was not given more stool softeners, discussed with MD & education provided for pton GI bleed precautions. Call light within reach, care ongoing. ITY MEASUREMENT SPECIALIST * Plan of Care - Marva Vera RN - 10/12/2023 7:52 PM CST Goals: Clinical Goals for the Shift: VSS, up with assist, pain controlled, ? d/c today Summary: VSS, up to ambulate in the luis today, pain controlled, ? D/c tommorow ITY MEASUREMENT SPECIALIST * Plan of Care - Lulu Jackson RN - 10/11/2023 4:57 PM CST Goals: Clinical Goals for the Shift: admit, pain and nausea control, NPO, rest, comfort and safety Summary: pt a&ox4. Pleasant. at bedside. EGD today. VSS. GI oft diet. Does c/o pain when hiccups or belching. The pain is very intense and then subsides quickly. Up with SBA. Problem: Health Behavior: Goal: Understanding of discharge needs will improve Outcome: Ongoing Problem: Lack of Knowledge: Goal: Ability to state ways to decrease the risk of falls will improve Outcome: Ongoing Problem: Safety: Goal: Will remain free from falls Outcome: Ongoing Goal: Will remain free from injury from falls Outcome: Ongoing Goal: Will remain free from falls and injury in home environment Outcome: Ongoing Problem: Lack of Knowledge: Goal: Ability to develop a pain control plan will improve Outcome: Ongoing Goal: Ability to identify pain intensity on a pain scale and rate it consistently will improve Outcome: Ongoing Goal: Ability to notify healthcare provider of pain before it becomes unmanageable or unbearable will improve Outcome: Ongoing Problem: Medication: Goal: Satisfaction with pain management regimen will improve Outcome: Ongoing Problem: Sensory: Goal: Ability to identify factors that increase the pain will improve Outcome: Ongoing Goal: Pain level will decrease Outcome: Ongoing ITY MEASUREMENT SPECIALIST * Plan of Care - Gladis Vera RN - 10/11/2023 5:24 AM CST Goals: Clinical Goals for the Shift: admit, pain and nausea control, NPO, rest, comfort and safety Summary: Pt arrived from [facility] around 2114 with VSS. Morphine and oxy given for pain. No c/o of nausea. Pt is voiding, no BM since arriving. Pt is NPO and q6 hgb monitoring. No acute events overnight. Pt slept with call light in reach. ITY MEASUREMENT SPECIALIST documented in this encounter Plan of Treatment Upcoming Encounters Date Type Department Care Team (Latest Contact Info) Description 10/23/2024 10:00 AM QUALITY MEASUREMENT SPECIALIST Hospital Encounter [facility] Operating Room [address] [place] [id number] [place] [phone] [address] 10/23/2024 10:00 AM QUALITY MEASUREMENT SPECIALIST - 10/23/2024 1:00 PM QUALITY MEASUREMENT SPECIALIST Surgery [facility] Operating Room [address] [place] [id number] [place] [id number] [address] ARTHROPLASTY TOTAL KNEE LEFT Scheduled Procedures Name Priority Associated Diagnoses Date/Ti me ARTHROPLASTY TOTAL KNEE left knee osteoarthritis 10/23/2024 10:00 AM QUALITY MEASUREMENT SPECIALIST ESOPHAGOGASTRODUODENOSCOPY Dysphagia, unspecified type documented as of this encounter Procedures Procedure Name Priority Date/Time Associated Diagnosis Comments DIFFERENTIAL AUTO Routine 10/13/2023 6:04 AM QUALITY MEASUREMENT SPECIALIST CBC WITH AUTO DIFFERENTIAL Routine 10/13 6:04 AM QUALITY MEASUREMENT SPECIALIST EGFR Routine 10/12/2023 4:45 AM QUALITY MEASUREMENT SPECIALIST DIFFERENTIAL AUTO Routine 10/12/2023 4:45 AM QUALITY MEASUREMENT SPECIALIST CBC WITH AUTO DIFFERENTIAL Routine 10/12 4:45 AM QUALITY MEASUREMENT SPECIALIST BASIC METABOLIC PANEL Routine 10/12/2023 4:45 AM QUALITY MEASUREMENT SPECIALIST THYROID FUNCTION CASCADE Timed 024 3:21 PM QUALITY MEASUREMENT SPECIALIST HEMOGLOBIN AND HEMATOCRIT Timed 2023 3:21 PM QUALITY MEASUREMENT SPECIALIST T4, FREE Timed 10/11/2023 3:21 PM QUALITY MEASUREMENT SPECIALIST FOLATE Timed 10/11/2023 3:21 PM QUALITY MEASUREMENT SPECIALIST VITAMIN B12 Timed 10/11/2023 3:21 PM QUALITY MEASUREMENT SPECIALIST SURGICAL PATHOLOGY Routine 10/11/2023 11:15 AM QUALITY MEASUREMENT SPECIALIST Gastrointestina l hemorrhage with hematemesis ESOPHAGOGASTRODUODENOSCOPY BIOPSY 10/11/2023 10:27 AM QUALITY MEASUREMENT SPECIALIST hematemesis CT CHEST ABDOMEN PELVIS W CONTRAST ED Urgent/IP Urgent 10/11/2023 10:12 AM QUALITY MEASUREMENT SPECIALIST EGD 10/11/2023 9:59 AM QUALITY MEASUREMENT SPECIALIST TROPONIN T HIGH-SENSITIVITY Routine 10/2023 9:20 AM QUALITY MEASUREMENT SPECIALIST CRP, HIGH SENSITIVITY Routine 10/11/2023 9:20 AM QUALITY MEASUREMENT SPECIALIST DIFFERENTIAL AUTO Routine 10/11/2023 5:56 AM QUALITY MEASUREMENT SPECIALIST CBC WITH AUTO DIFFERENTIAL Routine 10/11 5:56 AM QUALITY MEASUREMENT SPECIALIST EGFR STAT 10/10/2023 11:32 PM QUALITY MEASUREMENT SPECIALIST DIFFERENTIAL AUTO STAT 10/10/2023 11:32 PM QUALITY MEASUREMENT SPECIALIST CBC WITH AUTO DIFFERENTIAL STAT 10/10 11:32 PM QUALITY MEASUREMENT SPECIALIST TYPE AND SCREEN Timed 10/10/2023 11:32 PM QUALITY MEASUREMENT SPECIALIST BASIC METABOLIC PANEL STAT 10/10/2023 11:32 PM QUALITY MEASUREMENT SPECIALIST documented in this encounter Results * Differential, auto (10/13/2023 6:04 AM QUALITY MEASUREMENT SPECIALIST) Neutrophil abs 3.8 1.5 - 6.5 K/cumm [facility] Imm gran abs 0.1 0.0 - 0.1 K/cumm [facility] Lymphocyte abs 2.9 0.8 - 3.3 K/cumm [facility] Monocyte abs 0.8 0.2 - 0.8 K/cumm [facility] Eosinophil abs 0.3 0.0 - 0.5 K/cumm [facility] Basophil abs 0.1 0.0 - 0.1 K/cumm [facility] Neutrophil pct 47.7 % [facility] Comment: Interpretive Data Percent cell count reference ranges are not reported, since discordance with absolute values may lead to misinterpretation of CBC data. Current Interpretive Data was last revised on 2018. Imm gran pct 0.8 % [facility] Comment: Interpretive Data Percent cell count reference ranges are not reported, since discordance with absolute values may lead to misinterpretation of CBC data. Current Interpretive Data was last revised on 2018. Lymphocyte pct 37.0 % [facility] Comment: Interpretive Data Percent cell count reference ranges are not reported, since discordance with absolute values may lead to misinterpretation of CBC data. Current Interpretive Data was last revised on 2018. Monocyte pct 10.1 % [facility] Comment: Interpretive Data Percent cell count reference ranges are not reported, since discordance with absolute values may lead to misinterpretation of CBC data. Current Interpretive Data was last revised on 2018. Eosinophil pct 3.5 % [facility] Comment: Interpretive Data Percent cell count reference ranges are not reported, since discordance with absolute values may lead to misinterpretation of CBC data. Current Interpretive Data was last revised on 2018. Basophil pct 0.9 % [facility] Comment: Interpretive Data Percent cell count reference ranges are not reported, since discordance with absolute values may lead to misinterpretation of CBC data. Current Interpretive Data was last revised on 2018. Blood 10/13/2023 6:04 AM QUALITY MEASUREMENT SPECIALIST 10/13/2023 6:19 AM QUALITY MEASUREMENT SPECIALIST Mita Brown MD LAB BLOOD ORDERABLES Final Result Performing Organization Address [facility] Co de Phone Number [facility] [address] [place] [address] * (ABNORMAL) CBC with auto differential (10/13/2023 6:04 AM QUALITY MEASUREMENT SPECIALIST) [facility] WBC 7.9 3.8 - 9.9 K/cumm [facility] Hgb 11.7(L) 13.0 - 17.5 g/dL [facility] Hct 35.2(L) 38.9 - 50.3 % [facility] Plt 242 150 - 400 K/cumm [facility] MPV 10.5 9.1 - 12.3 fL [facility] RBC 3.41(L) 4.30 - 5.80 M/cumm [facility] MCV 103.2(H) 81.3 - 96.4 fL [facility] MCH 34.3(H) 27.1 - 33.3 pg [facility] MCHC 33.2 32.3 - 35.7 g/dL [facility] RDW CV 14.2 11.1 - 14.9 % [facility] RDW SD 53.7(H) 35.7 - 48.1 fL [facility] NRBC abs 0.00 0.00 - 0.01 K/cumm [facility] Blood 10/13/2023 6:04 AM QUALITY MEASUREMENT SPECIALIST 10/13/2023 6:19 AM QUALITY MEASUREMENT SPECIALIST Mita Brown MD LAB BLOOD ORDERABLES Final Result [facility] [address] [facility] [employer] [place], [place] [id number] * eGFR (10/12/2023 4:45 AM QUALITY MEASUREMENT SPECIALIST) Pathologist [facility] eGFR 59 mL/min/1. 73 m2 [facility] Comment: Interpretive Data Reference Interval Normal ?>/= [...] interpretive data was last reviewed 2021. Blood 10/12/2023 4:45 AM QUALITY MEASUREMENT SPECIALIST 10/12/2023 4:54 AM QUALITY MEASUREMENT SPECIALIST us Tyrel Fatima MD LAB BLOOD ORDERABLES Fi nal Result [facility] [address] Department [place] [address] * (ABNORMAL) Differential, auto (10/12/2023 4:45 AM QUALITY MEASUREMENT SPECIALIST) Neutrophil abs 5.9 1.5 - 6.5 K/cumm [facility] Imm gran abs 0.0 0.0 - 0.1 K/cumm [facility] Lymphocyte abs 2.6 0.8 - 3.3 K/cumm [facility] Monocyte abs 1.0(H) 0.2 - 0.8 K/cumm [facility] Eosinophil abs 0.2 0.0 - 0.5 K/cumm [facility] Basophil abs 0.1 0.0 - 0.1 K/cumm [facility] Neutrophil pct 60.4 % [facility] Comment: Interpretive Data Percent cell count reference ranges are not reported, since discordance with absolute values may lead to misinterpretation of CBC data. Current Interpretive Data was last revised on 2018. Imm gran pct 0.3 % [facility] Comment: Interpretive Data Percent cell count reference ranges are not reported, since discordance with absolute values may lead to misinterpretation of CBC data. Current Interpretive Data was last revised on 2018. Lymphocyte pct 26.8 % [facility] Comment: Interpretive Data Percent cell count reference ranges are not reported, since discordance with absolute values may lead to misinterpretation of CBC data. Current Interpretive Data was last revised on 2018. Monocyte pct 10.0 % [facility] Comment: Interpretive Data Percent cell count reference ranges are not reported, since discordance with absolute values may lead to misinterpretation of CBC data. Current Interpretive Data was last revised on 2018. Eosinophil pct 2.0 % [facility] Comment: Interpretive Data Percent cell count reference ranges are not reported, since discordance with absolute values may lead to misinterpretation of CBC data. Current Interpretive Data was last revised on 2018. Basophil pct 0.5 % [facility] Comment: Interpretive Data Percent cell count reference ranges are not reported, since discordance with absolute values may lead to misinterpretation of CBC data. Current Interpretive Data was last revised on 2018. Blood 10/12/2023 4:45 AM QUALITY MEASUREMENT SPECIALIST 10/12/2023 4:54 AM QUALITY MEASUREMENT SPECIALIST us Tyrel Fatima MD LAB BLOOD ORDERABLES Fi nal Result [facility] [address] Department [place] [address] * Basic metabolic panel (10/12/2023 4:45 AM QUALITY MEASUREMENT SPECIALIST) Sodium 139 135 - 145 mmol/L [facility] Potassium, pl 4.4 3.3 - 4.9 mmol/L [facility] Chloride 107 97 - 110 mmol/L [facility] CO2 24 22 - 32 mmol/L [facility] Anion gap 8 2 - 15 mmol/L [facility] BUN 20 6 - 25 mg/dL [facility] Creatinine 1.25 0.80 - 1.30 mg/dL [facility] Glucose 116 70 - 199 mg/dL [facility] Comment: Interpretive Data Fasting glucose >/= 126 [...] interpretive data was last revised 2022. Calcium 8.6 8.5 - 10.3 mg/dL [facility] Blood 10/12/2023 4:45 AM QUALITY MEASUREMENT SPECIALIST 10/12/2023 4:54 AM QUALITY MEASUREMENT SPECIALIST us Tyrel Fatima MD LAB BLOOD ORDERABLES Fi nal Result [facility] [address] Department [place] [address] * (ABNORMAL) CBC with auto differential (10/12/2023 4:45 AM QUALITY MEASUREMENT SPECIALIST) WBC 9.8 3.8 - 9.9 K/cumm [facility] Hgb 11.3(L) 13.0 - 17.5 g/dL [facility] Hct 34.7(L) 38.9 - 50.3 % [facility] Plt 233 150 - 400 K/cumm [facility] MPV 10.9 9.1 - 12.3 fL [facility] [facility] RBC 3.35(L) 4.30 - 5.80 M/cumm [facility] MCV 103.6(H) 81.3 - 96.4 fL [facility] MCH 33.7(H) 27.1 - 33.3 pg [facility] MCHC 32.6 32.3 - 35.7 g/dL [facility] RDW CV 14.0 11.1 - 14.9 % [facility] RDW SD 53.1(H) 35.7 - 48.1 fL [facility] NRBC abs 0.00 0.00 - 0.01 K/cumm [facility] Blood 10/12/2023 4:45 AM QUALITY MEASUREMENT SPECIALIST 10/12/2023 4:54 AM QUALITY MEASUREMENT SPECIALIST Tyrel Fatima MD LAB BLOOD ORDERABLES Fi nal Result Performing Organization Address [facility] Co de Phone Number [facility] [address] Department [employer] [place], [place] [id number] * T4, free (10/11/2023 3:21 PM QUALITY MEASUREMENT SPECIALIST) Free T4 1.39 0.90 - 1.70 ng/dL [facility] Blood 10/11/2023 3:21 PM QUALITY MEASUREMENT SPECIALIST 10/11/2023 3:43 PM QUALITY MEASUREMENT SPECIALIST Narrative [facility] - 10/11/2023 4:57 PM QUALITY MEASUREMENT SPECIALIST This test was reflexed from a TSH result. Tyrel Fatima MD LAB BLOOD ORDERABLES Fi nal Result Performing Organization Address [facility] de Phone Number [facility] [address] Department [place] [address] * (ABNORMAL) TSH reflex to free T4 (10/11/2023 3:21 PM QUALITY MEASUREMENT SPECIALIST) TSH 7.57(H) 0.30 - 4.20 mcIUnit/mL [facility] Blood 10/11/2023 3:21 PM QUALITY MEASUREMENT SPECIALIST 10/11/2023 3:43 PM QUALITY MEASUREMENT SPECIALIST Tyrel Fatima MD LAB BLOOD ORDERABLES Ed ited Result - Final Performing Organization Address [facility] Co de Phone Number [facility] [address] [facility] [place] [address] * (ABNORMAL) Vitamin B12 (10/11/2023 3:21 PM QUALITY MEASUREMENT SPECIALIST) Pathologist [facility] Vitamin B12 1,995(H) 230 - 1,250 pg/mL [facility] Blood 10/11/2023 3:21 PM QUALITY MEASUREMENT SPECIALIST 10/11/2023 3:43 PM QUALITY MEASUREMENT SPECIALIST Tyrel Fatima MD LAB BLOOD ORDERABLES Ed ited Result - Final Performing Organization Address [facility] Co de Phone Number [facility] [address] [facility] [place] [address] * Folate (10/11/2023 3:21 PM QUALITY MEASUREMENT SPECIALIST) Pathologist [facility] Folic acid 17.4 >=5.0 ng/mL [facility] Blood 10/11/2023 3:21 PM QUALITY MEASUREMENT SPECIALIST 10/11/2023 3:43 PM QUALITY MEASUREMENT SPECIALIST Tyrel Fatima MD LAB BLOOD ORDERABLES Fi nal Result Performing Organization Address [facility] Co de Phone Number [facility] [address] [place] [address] * Hemoglobin and hematocrit (10/11/2023 3:21 PM QUALITY MEASUREMENT SPECIALIST) [facility] Hgb 13.3 13.0 - 17.5 g/dL [facility] Hct 41.4 38.9 - 50.3 % [facility] Blood 10/11/2023 3:21 PM QUALITY MEASUREMENT SPECIALIST 10/11/2023 3:43 PM QUALITY MEASUREMENT SPECIALIST Tyrel Fatima MD LAB BLOOD ORDERABLES Fi nal Result Performing Organization Address [facility]/ZIP Co de Phone Number [facility] [address] [place] [address] * Surgical pathology (10/11/2023 11:15 AM QUALITY MEASUREMENT SPECIALIST) Tissue (Esophageal biopsy) 10/11/2023 11:10 AM QUALITY MEASUREMENT SPECIALIST Narrative [facility]OLOGY [facility] - 10/13/2023 10:04 AM QUALITY MEASUREMENT SPECIALIST [address] ??[address] Tele: ?? Any Arriaza MD - Pension Agent Note to Patients: This report may contain a detailed description of human tissue sent by a health care provider to the laboratory for pathologic evaluation. The content of this report is essential for diagnosis and may provide important critical findings. This information may be unfamiliar to patients to review without a medical professional present. It is advised that the patient review this report in the presence of a health care provider who can answer questions and explain the details. SURGICAL PATHOLOGY REPORT Patient Name: ??GUNJAN GTZ JRMason Address: ??[address] [place] [id number] Gender: ??M : ??1945 (Age: 78) Service: ??Medical Location: ??[place] [address], ?? Hospital #: ??[id number] Patient Type: ??[facility] Accession #: ? [id number] Taken: ? 10/11/2023 Received ? 10/11/2023 Reported: ? 10/13/2023 Physician(s): ? Dr. Jose Martin Gonzalez M.D. Mark Ramos M.D. DIAGNOSIS: Esophagus, esophageal ulcer, biopsy: ? - Squamous mucosa with erosive esophagitis dje/10/13/2023 10:04 Examining Pathologist: Jhonny Ferguson M.D. Report Reviewed and Electronically Signed By ??Jhonny Ferguson M.D. SPECIMEN TYPE: A: ESOPHAGEAL ULCER CLINICAL IMPRESSION AND HISTORY: Epigastric abdominal pain, coffee-ground emesis, unexplained chest pain. ??Nonbleeding diverticula with large opening in the distal esophagus and GE junction. ??Few superficial esophageal ulcers at the GE junction GROSS DESCRIPTION: Received in formalin labeled GUNJAN GTZ and esophageal ulcer are 3 joseph tissue fragments, 0.5 x 0.4 x 0.2 cm in aggregate. ??The specimen is filtered and entirely submitted in A1. ?? jxi/10/12/2023 08:39 ? JAP,JXI MICROSCOPIC DESCRIPTION: Sections show hyperplastic squamous mucosa with intercellular edema, thickening of the basal cell layer, and reactive epithelial changes. ??Detached ulceroinflammatory exudate is noted. ??Neutrophils are present within the squamous epithelium. ??There is no evidence of eosinophilia. ??No viral inclusions are identified. Clerical Data Follows A; [id number] REPORT IMAGES AND/OR SCANNED DOCUMENTS ONLY VIEWABLE IN PDF FORMAT The immunohistochemical test(s) cited in this report, if any, was developed and its performance characteristics determined by [facility] Pathology Department. ??It has not been cleared or approved by the U.S. Food and Drug Administration. ??The FDA has determined that such clearance or approval is not necessary. ??This test is used for clinical purposes. ??It should not be regarded as investigational or for research. ??[facility] Laboratory is certified under the Clinical Laboratory Improvement Amendments of 1988 (CLIA) as qualified to perform high complexity testing. ??Immunostains were performed on formalin-fixed paraffin embedded tissue using a polymer diaminobenzidine chromogen detection system. Antibodies used may include clone SP1 (rabbit monoclonal, estrogen receptor), clone 1E2 (rabbit monoclonal progesterone receptor), Ki-67 (rabbit monoclonal, 30-9), CD117 (rabbit polyclonal, c-kit), and anti-Her-2/mateo (4B5) (rabbit monoclonal primary antibody). Jose Martin Gonzalez MD LAB PATHOLOGY ORDERABLES Final Result PATHOLOGY [facility] Laboratory Receiving [address] [place] [address] * CT Chest Abdomen Pelvis W Contrast (10/11/2023 10:12 AM QUALITY MEASUREMENT SPECIALIST) Anatomical Region Laterality Modality Body N/A Computed Tomogra phy 10/11/2023 11:0 3 AM QUALITY MEASUREMENT SPECIALIST Impressions 10/11/2023 11:03 AM QUALITY MEASUREMENT SPECIALIST A 12 x 12 mm pulmonary nodule in the lateral aspect of the right costophrenic sulcus, new since 2019, is suspicious for primary lung malignancy. Electronically signed by: Jayshree Giles MD, Ph.D Narrative 10/11/2023 11:03 AM QUALITY MEASUREMENT SPECIALIST EXAMINATION: ??Computed tomography of chest/abdomen/pelvis with [...] nodularity compared to prior study in 2020. Bones: No suspicious osseous lesion. 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 Referring MD: Mark Ramos M.D. Medicines: See the Anesthesia note for documentation of the administered medications Complications: No immediate complications. Estimated Blood Loss: Estimated blood loss: none. Procedure: Pre-Anesthesia Assessment: - Prior to the procedure, a History and Physicalwas performed, and patient medications and allergieswere reviewed. The patient is competent. The risks and benefits of the procedure and the sedation optionsand risks were discussed with the patient. Allquestions were answered and informed consent was obtained. Patient identification and proposed procedure were verified by the physician, the nurse, the anesthesiologist and the lining baster in the pre-procedure area in the endoscopy suite. Mental Status Examination: alert and oriented. Airway Examination: normal oropharyngeal airway and neck mobility. Respiratory Examination: clear to auscultation. CV Examination: normal. Prophylactic Antibiotics: The patient does not requireprophylactic antibiotics. Prior Anticoagulants: The patient has taken no anticoagulant or antiplatelet agents. ASA Grade Assessment: III - A patient with severesystemic disease. After reviewing the risks and benefits,the patient was deemed in satisfactory condition to undergo the procedure. The anesthesia plan was touse general anesthesia. Immediately prior to administration of medications, the patient was re-assessed for adequacy to receive sedatives. The heart rate, respiratory rate, oxygen saturations, blood pressure, adequacy of pulmonary ventilation,and response to care were monitored throughout the procedure. The physical status of the patient was re-assessed after the procedure. The benefits, risks, and alternatives to theprocedure and sedation were discussed and informed consentwas obtained. The scope was passed under direct vision. The Endoscope was introduced through the mouth, and advanced to the second part of duodenum. The upperGI endoscopy was accomplished without difficulty. The patient tolerated the procedure well. Findings: A non-bleeding diverticulum with a large opening and no stigmata of recent bleeding was found in the distal esophagus and at the gastroesophageal junction. Few superficial esophageal ulcers with no bleeding and no stigmata of recent bleeding were found at the gastroesophageal junction. Thelargest lesion was 5 mm in largest dimension. Biopsies were taken with a cold forceps for histology. Verification of patient identification for the specimen was done. Estimated blood loss was minimal. There is no endoscopic evidence of stenosis, stricture, varices orsigns of external compression in the entire esophagus. The entire examined stomach was normal. A single 5 mm sessile polyp with no stigmata of recent bleeding was found in the gastric body. The duodenal bulb and second portion of the duodenum were normal. 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 - Esophageal ulcers with no bleeding and nostigmata of recent bleeding. Biopsied. - Normal stomach. - A single gastric polyp. - Normal duodenal bulb and second portion of the duodenum. Recommendation: - [facility]. - Mechanical soft diet. - Use Protonix (pantoprazole) 40 mg PO daily. - Await pathology results. Electronically signed by Jose Martin Gonzalez MD Jose Martin Gonzalez M.D. 10/11/2023 11:40:12 AM This document was signed electronically. Number of Addenda: 0 Note Initiated On: 10/11/2023 9:59 AM Scope In: Scope Out: us Jose Martin Gonzalez MD ENDOSCOPY PROCEDURES Edited Res ult - Final * CRP (cardiac risk) (10/11/2023 9:20 AM QUALITY MEASUREMENT SPECIALIST) hsCRP 5.73 mg/L [facility] Comment: Interpretive data Adult only - values greater than or equal to 10 mg/L are consistent with infection or inflammation. ?? Individuals with evidence of active infection, systemic inflammatory processes, or trauma should not be tested until these conditions have abated. When using HS CRP to assess cardiovascular risk, two measurements should be taken, two weeks apart (averaging results). ?? The CDC/AHA recommended the following HS CRP cut off points (tertiles) for CVD assessment. ? Adult low risk ? <1.0 mg/L Average risk ??1.0 - 3.0 mg/L High Risk ?>3.0 mg/L Current interpretive data was last revised on 2018. Blood 10/11/2023 9:20 AM QUALITY MEASUREMENT SPECIALIST 10/11/2023 9:24 AM QUALITY MEASUREMENT SPECIALIST us Taylor Bland NP LAB BLOOD ORDERABLES Final Res ult Performing Organization Address [facility] Co de Phone Number [facility] [address] [employer] [place], [place] [phone] * Troponin T high-sensitivity (10/11/2023 9:20 AM QUALITY MEASUREMENT SPECIALIST) Trop T hs 18 <=22 ng/L [facility] Comment: Interpretive Data For further hscTnT resources including the diagnostic algorithm and an aid in interpretation, copy and paste this link: https://nrl.testcatalog.org/show/hsTrop Current Interpretive Data last revised 2020. Blood 10/11/2023 9:20 AM QUALITY MEASUREMENT SPECIALIST 10/11/2023 9:24 AM QUALITY MEASUREMENT SPECIALIST Taylor Bland NP LAB BLOOD ORDERABLES Final Res ult Performing Organization Address [facility] Co de Phone Number [facility] [address] Department [employer] [place], [place] [phone] * Differential, auto (10/11/2023 5:56 AM QUALITY MEASUREMENT SPECIALIST) Neutrophil abs 4.4 1.5 - 6.5 K/cumm [facility] Imm gran abs 0.0 0.0 - 0.1 K/cumm [facility] Lymphocyte abs 2.2 0.8 - 3.3 K/cumm [facility] Monocyte abs 0.8 0.2 - 0.8 K/cumm [facility] Eosinophil abs 0.3 0.0 - 0.5 K/cumm [facility] Basophil abs 0.1 0.0 - 0.1 K/cumm [facility] Neutrophil pct 56.5 % [facility] Comment: Interpretive Data Percent cell count reference ranges are not reported, since discordance with absolute values may lead to misinterpretation of CBC data. Current Interpretive Data was last revised on 2018. Imm gran pct 0.4 % [facility] Comment: Interpretive Data Percent cell count reference ranges are not reported, since discordance with absolute values may lead to misinterpretation of CBC data. Current Interpretive Data was last revised on 2018. Lymphocyte pct 28.4 % [facility] Comment: Interpretive Data Percent cell count reference ranges are not reported, since discordance with absolute values may lead to misinterpretation of CBC data. Current Interpretive Data was last revised on 2018. Monocyte pct 10.5 % [facility] Comment: Interpretive Data Percent cell count reference ranges are not reported, since discordance with absolute values may lead to misinterpretation of CBC data. Current Interpretive Data was last revised on 2018. Eosinophil pct 3.3 % [facility] Comment: Interpretive Data Percent cell count reference ranges are not reported, since discordance with absolute values may lead to misinterpretation of CBC data. Current Interpretive Data was last revised on 2018. Basophil pct 0.9 % [facility] Comment: Interpretive Data Percent cell count reference ranges are not reported, since discordance with absolute values may lead to misinterpretation of CBC data. Current Interpretive Data was last revised on 2018. Blood 10/11/2023 5:56 AM QUALITY MEASUREMENT SPECIALIST 10/11/2023 6:38 AM QUALITY MEASUREMENT SPECIALIST us Melvin Garcia MD LAB BLOOD ORDERABLES Final Res ult [facility] [address] [place] [address] * (ABNORMAL) CBC with auto differential (10/11/2023 5:56 AM QUALITY MEASUREMENT SPECIALIST) [facility] WBC 7.8 3.8 - 9.9 K/cumm [facility] Hgb 11.9(L) 13.0 - 17.5 g/dL [facility] Hct 35.9(L) 38.9 - 50.3 % [facility] Plt 241 150 - 400 K/cumm [facility] MPV 11.4 9.1 - 12.3 fL [facility] RBC 3.47(L) 4.30 - 5.80 M/cumm [facility] MCV 103.5(H) 81.3 - 96.4 fL [facility] MCH 34.3(H) 27.1 - 33.3 pg [facility] MCHC 33.1 32.3 - 35.7 g/dL [facility] RDW CV 14.4 11.1 - 14.9 % [facility] RDW SD 55.2(H) 35.7 - 48.1 fL [facility] NRBC abs 0.00 0.00 - 0.01 K/cumm [facility] Blood 10/11/2023 5:56 AM QUALITY MEASUREMENT SPECIALIST 10/11/2023 6:38 AM QUALITY MEASUREMENT SPECIALIST us Melvin Garcia MD LAB BLOOD ORDERABLES Final Res ult [facility] [address] Department [place] [address] * eGFR (10/10/2023 11:32 PM QUALITY MEASUREMENT SPECIALIST) [facility] eGFR 59 mL/min/1. 73 m2 [facility] Comment: Interpretive Data Reference Interval Normal ?>/= [...] interpretive data was last reviewed 2021. Blood 10/10/2023 11:3 2 PM QUALITY MEASUREMENT SPECIALIST 10/10/2023 11:41 PM QUALITY MEASUREMENT SPECIALIST us Melvin Garcia MD LAB BLOOD ORDERABLES Final Res ult [facility] [address] Department [place] [address] * (ABNORMAL) Differential, auto (10/10/2023 11:32 PM QUALITY MEASUREMENT SPECIALIST) Neutrophil abs 5.0 1.5 - 6.5 K/cumm [facility] Imm gran abs 0.1 0.0 - 0.1 K/cumm [facility] Lymphocyte abs 2.7 0.8 - 3.3 K/cumm [facility] Monocyte abs 0.9(H) 0.2 - 0.8 K/cumm [facility] Eosinophil abs 0.4 0.0 - 0.5 K/cumm [facility] Basophil abs 0.1 0.0 - 0.1 K/cumm [facility] Neutrophil pct 54.9 % [facility] Comment: Interpretive Data Percent cell count reference ranges are not reported, since discordance with absolute values may lead to misinterpretation of CBC data. Current Interpretive Data was last revised on 2018. Imm gran pct 0.5 % [facility] Comment: Interpretive Data Percent cell count reference ranges are not reported, since discordance with absolute values may lead to misinterpretation of CBC data. Current Interpretive Data was last revised on 2018. Lymphocyte pct 29.3 % [facility] Comment: Interpretive Data Percent cell count reference ranges are not reported, since discordance with absolute values may lead to misinterpretation of CBC data. Current Interpretive Data was last revised on 2018. Monocyte pct 10.2 % [facility] Comment: Interpretive Data Percent cell count reference ranges are not reported, since discordance with absolute values may lead to misinterpretation of CBC data. Current Interpretive Data was last revised on 2018. Eosinophil pct 4.3 % [facility] Comment: Interpretive Data Percent cell count reference ranges are not reported, since discordance with absolute values may lead to misinterpretation of CBC data. Current Interpretive Data was last revised on 2018. Basophil pct 0.8 % [facility] Comment: Interpretive Data Percent cell count reference ranges are not reported, since discordance with absolute values may lead to misinterpretation of CBC data. Current Interpretive Data was last revised on 2018. Blood 10/10/2023 11:3 2 PM QUALITY MEASUREMENT SPECIALIST 10/10/2023 11:41 PM QUALITY MEASUREMENT SPECIALIST us Melvin Garcia MD LAB BLOOD ORDERABLES Final Res ult [facility] [address] Department [place] [address] * Type and screen (10/10/2023 11:32 PM QUALITY MEASUREMENT SPECIALIST) Sarah, indirect Negative ABO Rh O Negative [facility] Blood 10/10/2023 11:3 2 PM QUALITY MEASUREMENT SPECIALIST 10/10/2023 11:36 PM QUALITY MEASUREMENT SPECIALIST Narrative [facility] - 10/11/2023 12:38 AM QUALITY MEASUREMENT SPECIALIST Has the patient had Daratumumab or Isatuximab in the past 6 months?->Unknown us Manuel Carreno MD LAB BLOOD BANK TEST ORDERAB LES Final Result Performing Organization Address [facility]/ZIP Co de Phone Number [facility] [address] [address] * (ABNORMAL) Basic metabolic panel (10/10/2023 11:32 PM QUALITY MEASUREMENT SPECIALIST) Sodium 139 135 - 145 mmol/L [facility] Potassium, pl 4.4 3.3 - 4.9 mmol/L [facility] Comment:Hemolyzed; potassium value may be falsely elevated by as much as 0.3 - 0.5 mmol/L. Suggest redraw and reanalysis Chloride 104 97 - 110 mmol/L [facility] CO2 25 22 - 32 mmol/L [facility] Anion gap 10 2 - 15 mmol/L [facility] BUN 28(H) 6 - 25 mg/dL [facility] Creatinine 1.25 0.80 - 1.30 mg/dL [facility] Glucose 109 70 - 199 mg/dL [facility] Comment: Interpretive Data Fasting glucose >/= 126 [...] 2022. Calcium 9.1 8.5 - 10.3 mg/dL [facility] Blood 10/10/2023 11:3 2 PM QUALITY MEASUREMENT SPECIALIST 10/10/2023 11:41 PM QUALITY MEASUREMENT SPECIALIST us Melvin Garcia MD LAB BLOOD ORDERABLES Final Res ult Performing Organization Address [facility]/ZIP Co de Phone Number [facility] [address] [place] [address] * (ABNORMAL) CBC with auto differential (10/10/2023 11:32 PM QUALITY MEASUREMENT SPECIALIST) WBC 9.1 3.8 - 9.9 K/cumm [facility] Hgb 12.9(L) 13.0 - 17.5 g/dL [facility] Hct 39.6 38.9 - 50.3 % [facility] Plt 250 150 - 400 K/cumm [facility] MPV 11.3 9.1 - 12.3 fL [facility] RBC 3.78(L) 4.30 - 5.80 M/cumm [facility] MCV 104.8(H) 81.3 - 96.4 fL [facility] MCH 34.1(H) 27.1 - 33.3 pg [facility] MCHC 32.6 32.3 - 35.7 g/dL [facility] RDW CV 14.5 11.1 - 14.9 % [facility] RDW SD 55.4(H) 35.7 - 48.1 fL [facility] NRBC abs 0.00 0.00 - 0.01 K/cumm [facility] Blood 10/10/2023 11:3 2 PM QUALITY MEASUREMENT SPECIALIST 10/10/2023 11:41 PM QUALITY MEASUREMENT SPECIALIST us Melvin Garcia MD LAB BLOOD ORDERABLES Final Res ult [facility] [address] Department [place] [address] documented in this encounter Visit Diagnoses Not on filedocumented in this encounter Admitting Diagnoses Diagnosis Coffee ground emesis Hematemesis documented in this encounter Administered Medications Inactive Administered Medications - up to 3 most recent administrations Medication Order MAR Action Action Date Dose Rate Site acetaminophen (TYLENOL) tablet 650 mg 650 mg, oral, Every 4 hours PRN, 1st line for pain, fever, fever greater than 38.3 C, Starting on 10/10/23 at 2125, Indications: Fever, PainIndications:Fever,Pain Given 10/13/2023 7:51 AM QUALITY MEASUREMENT SPECIALIST 650 mg Given 10/12/2023 2:21 PM QUALITY MEASUREMENT SPECIALIST 650 mg albuterol HFA (PROVENTIL HFA,VENTOLIN HFA,PROAIR HFA) 90 mcg/actuation inhaler 2 puff 2 puff, inhalation, Every 4 hours PRN (registered respiratory technician), wheezing, shortness of breath, Starting on Wed10/11/23 at 0326 Carrier Fluids for Secondary Infusion - 0.9% Sodium Chloride 30 mL, intravenous, As needed, For priming tubing and/or flushing, Starting on Wed10/10/23 at 2125, 0-250 ml/hr to flush line after IV infusions when no maintenance IV ordered. Infuse 30mL at the same rate as the secondary infusion. Run as primary IV, not intended for KVO. donepeziL (ARICEPT) tablet 10 mg 10 mg, oral, Nightly, First dose on Wed10/11/23 at 2100 Given 10/12/2023 8:50 PM QUALITY MEASUREMENT SPECIALIST 10 mg Given 10/11/2023 9:02 PM QUALITY MEASUREMENT SPECIALIST 10 mg gabapentin (NEURONTIN) capsule 200 mg 200 mg, oral, 3 times daily, First dose on Wed10/11/23 at 0900 Given 10/13/2023 7:51 AM QUALITY MEASUREMENT SPECIALIST 200 mg Given 10/12/2023 8:50 PM QUALITY MEASUREMENT SPECIALIST 200 mg Given 10/12/2023 5:03 PM QUALITY MEASUREMENT SPECIALIST 200 mg levothyroxine (SYNTHROID) tablet 150 mcg 150 mcg, oral, Daily (early AM), First dose on Wed10/11/23 at 0600, Administer on an empty stomach, preferably 30 minutes before breakfast. Take 4 hours apart from antacids, iron and calcium products. Separate from tube feeds, if applicable. Given 10/13/2023 5:44 AM QUALITY MEASUREMENT SPECIALIST 150 mcg Given 10/12/2023 9:59 AM QUALITY MEASUREMENT SPECIALIST 150 mcg Given 10/11/2023 6:28 AM QUALITY MEASUREMENT SPECIALIST 150 mcg mirtazapine (REMERON) tablet 7.5 mg 7.5 mg, oral, Nightly, First dose on Wed10/11/23 at 2100 Given 10/12/2023 8:50 PM QUALITY MEASUREMENT SPECIALIST 7.5 mg Given 10/11/2023 9:02 PM QUALITY MEASUREMENT SPECIALIST 7.5 mg ondansetron (ZOFRAN) injection 4 mg 4 mg, intravenous, Administer over 2 Minutes, Every 6 hours PRN, nausea, vomiting, if not tolerating PO, Starting on Wed10/10/23 at 2125, Indications: Nausea and VomitingIndications:Nausea and Vomiting ondansetron ODT (ZOFRAN-ODT) disintegrating tablet 4 mg 4 mg, oral, Every 6 hours PRN, nausea, vomiting, Starting on Wed10/10/23 at 2125, Indications: Nausea and VomitingIndications:Nausea and Vomiting oxyBUTYnin XL (DITROPAN-XL) extended release tablet 15 mg 15 mg, oral, Nightly, First dose on Wed10/11/23 at 2100, Do not crush, chew, cut, dissolve, open or otherwise manipulate tablet/capsule. Given 10/12/2023 8:50 PM QUALITY MEASUREMENT SPECIALIST 15 mg Given 10/11/2023 9:01 PM QUALITY MEASUREMENT SPECIALIST [address] (PROTONIX) extended release tablet 40 mg 40 mg, oral, 2 times daily, First dose on Wed10/12/23 at 1400, Do not crush, chew, cut, dissolve, open or otherwise manipulate tablet/capsule., Indications: GI BleedIndications:GI Bleed Given 10/13/2023 7:51 AM QUALITY MEASUREMENT SPECIALIST 40 mg Given 10/12/2023 8:50 PM QUALITY MEASUREMENT SPECIALIST 40 mg Given 10/12/2023 2:21 PM QUALITY MEASUREMENT SPECIALIST 40 mg senna-docusate (PERICOLACE) 8.6-50 mg per tablet 1 tablet 1 tablet, oral, Nightly, First dose on Wed10/11/23 at 2100 Given 10/12/2023 8:50 PM QUALITY MEASUREMENT SPECIALIST 1 tablet Given 10/11/2023 9:02 PM QUALITY MEASUREMENT SPECIALIST 1 tablet sodium chloride 0.9% flush 0.5-20 mL 0.5-20 mL, intra-catheter, Every 8 hours scheduled, First dose on Wed10/10/23 at 2200, Flush volume based on line type and size. Given 10/12/2023 10:00 AM QUALITY MEASUREMENT SPECIALIST 10 mL Given 10/11/2023 9:04 PM QUALITY MEASUREMENT SPECIALIST 10 mL Given 10/10/2023 11:59 PM QUALITY MEASUREMENT SPECIALIST 10 mL sodium chloride 0.9% flush 0.5-20 mL 0.5-20 mL, intra-catheter, As needed, line care, Starting on Wed10/10/23 at 2125, Flush volume based on line type and size. Flush before and after each use. Given 10/12/2023 10:00 AM QUALITY MEASUREMENT SPECIALIST 10 mL tamsulosin (FLOMAX) extended release capsule 0.4 mg 0.4 mg, oral, Nightly, First dose on Wed10/11/23 at 2100, Do not crush, chew, cut, dissolve, open or otherwise manipulate tablet/capsule. Given 10/12/2023 8:50 PM QUALITY MEASUREMENT SPECIALIST 0.4 mg Given 10/11/2023 9:02 PM QUALITY MEASUREMENT SPECIALIST 0.4 mg tiZANidine (ZANAFLEX) tablet 2 mg 2 mg, oral, Nightly, First dose on Wed10/11/23 at 2100, Administer on an empty stomach Given 10/12/2023 8:50 PM QUALITY MEASUREMENT SPECIALIST 2 mg Given 10/11/2023 9:02 PM QUALITY MEASUREMENT SPECIALIST 2 mg documented in this encounter Discontinued Medications Medication Sig Discontinue Reason Start Date End Da te acetaminophen (TYLENOL) 500 mg tablet Take 1 tablet (500 mg total) by mouth every 6 (six) hours as needed for pain Therapy completed 10/03/2022 10/11/2023 polyethylene glycol (MIRALAX) 17 gram packetIndications:co nstipation Take 1 packet (17 g total) by mouth daily as needed for constipation Therapy completed 10/11/2023 senna-docusate (PERICOLACE) 8.6-50 mg Take 1 tablet by mouth nightly Therapy completed 10/11/2023 magnesium oxide (MAG-OX) 250 mg (150.8 mg elemental) tabletIndications:hy pomagnesemia Take 1 tablet (250 mg total) by mouth nightly Therapy completed 10/11/2023 traZODone (DESYREL) 50 mg tablet Take by mouth nightly 1/2 to 1 tablet Therapy completed 08/15/2021 10/11/2023 UNABLE TO FIND Take 1 each by mouth nightly Med Name: muscle cramp pain reliever Patient takes 3 different OTC homeopathic muscle cramp medications Therapy completed 10/11/2023 traMADoL (ULTRAM) 50 mg tablet TAKE 1 TABLET BY MOUTH EVERY 6 HOURS NEEDED FOR PAIN 01/04/2023 10/11/2023 omeprazole (PriLOSEC) 20 mg capsule take 1 capsule by oral route every day before a meal 10/21/2016 10/13/[address] (VOLTAREN) 50 mg EC tabletIndications:No ntraumatic incomplete tear of right rotator cuff Take 1 tablet by mouth twice daily as needed for pain Stop Taking at Discharge 09/13/2023 10/13/2023 documented as of this encounter Historical Medications * This list may reflect changes made after this encounter. melatonin 10 mg tablet Take 1 tablet (10 mg total) by mouth nightly furosemide (LASIX) 20 mg tablet Take 1 tablet (20 mg total) by mouth 2 (two) times a day 01/07/2024 added in this encounter Active and Recently Administered Medications Times are shown in QUALITY MEASUREMENT SPECIALIST. Scheduled Medication Order 10/11/2023 10/12/2023 10/13/2023 donepeziL (ARICEPT) tablet 10 mg 10 mg, oral, Nightly, First dose on Wed10/11/23 at 2100 1027 (DEC Hold - Provider: Automatic Transfer Provider - Reason: Patient not available)1225 (DEC Unhold - Provider: Automatic Transfer Provider)2101 (Given - Provider: Latisha Navarrete RN) 2049 (Given - Provider: Tessy Woodruff RN) gabapentin (NEURONTIN) capsule 200 mg 200 mg, oral, 3 times daily, First dose on Wed10/11/23 at 0900 0844 (Not Given - Provider: Lulu Jackson RN - Reason: NPO)1027 (DEC Hold - Provider: Automatic Transfer Provider - Reason: Patient not available)1225 (DEC Unhold - Provider: Automatic Transfer Provider)1408 (Given - Provider: Lulu Jackson RN)210 (Given - Provider: Latisha Navarrete RN) 0959 (Given - Provider: Marva Vera RN)1703 (Given - Provider: Marva Vera RN - Comment: pt sleeping)2049 (Given - Provider: Tessy Woodruff RN) 0751 (Given - Provider: Marva Vera RN) levothyroxine (SYNTHROID) tablet 150 mcg 150 mcg, oral, Daily (early AM), First dose on Wed10/11/23 at 0600, Administer on an empty stomach, preferably 30 minutes before breakfast. Take 4 hours apart from antacids, iron and calcium products. Separate from tube feeds, if applicable. 0628 (Given - Provider: Gladis Vera RN)1027 ([facility] Hold - Provider: Automatic Transfer Provider - Reason: Patient not available)1225 ([facility] Unhold - Provider: Automatic Transfer Provider) 0959 (Given - Provider: Marva Vera, RN) 0544 (Given - Provider: Tessy Woodruff, MARAH) mirtazapine (REMERON) tablet 7.5 mg 7.5 mg, oral, Nightly, First dose on Wed10/11/23 at 2100 10[address] ([facility] Hold - Provider: Automatic Transfer Provider - Reason: Patient not available)1225 ([facility] Unhold - Provider: Automatic Transfer Provider)2101 (Given - Provider: Latisha Navarrete, MARAH) 2049 (Given - Provider: Tessy Woodruff, MARAH) oxyBUTYnin XL (DITROPAN-XL) extended release tablet 15 mg 15 mg, oral, Nightly, First dose on Wed10/11/23 at 2100, Do not crush, chew, cut, dissolve, open or otherwise manipulate tablet/capsule. 1027 ([facility] Hold - Provider: Automatic Transfer Provider - Reason: Patient not available)1225 ([facility] Unhold - Provider: Automatic Transfer Provider)2100 (Given - Provider: Latisha Navarrete, MARAH) 2049 (Given - Provider: Tessy Woodruff, MARAH) pantoprazole (PROTONIX) 40 mg in sodium chloride 0.9% 10 mL IV Syringe (CANCELED) 40 mg, intravenous, at 300 mL/hr, Administer over 2 Minutes, 2 times daily, First dose on Wed10/11/23 at 0915, For IV administration, reconstitute 40 mg vial with 10 mL sodium chloride 0.9% for injection for a final concentration of 4 mg/mL, Indications: GI Bleed 0911 (Given - Provider: Lulu Jackson RN)1027 ([facility] Hold - Provider: Automatic Transfer Provider - Reason: Patient not available)1225 ([facility] Unhold - Provider: Automatic Transfer Provider)2100 (Given - Provider: Latisha Navarrete RN) 1000 (Not Given - Provider: Marva Vera, RN - Reason: Loss of IV access) pantoprazole DR (PROTONIX) extended release tablet 40 mg 40 mg, oral, 2 times daily, First dose on Wed10/12/23 at 1400, Do not crush, chew, cut, dissolve, open or otherwise manipulate tablet/capsule., Indications: GI Bleed 1421 (Given - Provider: Marva Vera RN)2049 (Given - Provider: Tessy Woodruff RN) 0751 (Given - Provider: Marva Vera RN) senna-docusate (PERICOLACE) 8.6-50 mg per tablet 1 tablet 1 tablet, oral, Nightly, First dose on Wed10/11/23 at 2100 2102 (Given - Provider: Latisha Navarrete RN) 2049 (Given - Provider: Tessy Woodruff RN) senna-docusate (PERICOLACE) 8.6-50 mg per tablet 1 tablet (COMPLETED) 1 tablet, oral, Once, On Wed10/13/23 at 1515, For 1 dose 1440 (Given - Provider: Marva Vera RN) sodium chloride 0.9% flush 0.5-20 mL 0.5-20 mL, intra-catheter, Every 8 hours scheduled, First dose on Wed10/10/23 at 2200, Flush volume based on line type and size. 0624 (Not Given - Provider: Gladis Vera RN - Reason: IV Infusing)1027 (MAR Hold - Provider: Automatic Transfer Provider - Reason: Patient not available)1225 (MAR Unhold - Provider: Automatic Transfer Provider)1504 (Not Given - Provider: Lulu Jackson RN - Reason: IV Infusing)2103 (Given - Provider: Latisha Navarrete RN) 1000 (Given - Provider: Marva Vera RN)1311 (Not Given - Provider: Marva Vera RN - Reason: Other - Comment: no iv acesss)2051 (Not Given - Provider: Tessy Woodruff RN - Reason: Loss of IV access) 0401 (Not Given - Provider: Tessy Woodruff RN - Reason: Loss of IV access)1513 (Not Given - Provider: Marva Vera RN - Reason: Loss of IV access) tamsulosin (FLOMAX) extended release capsule 0.4 mg 0.4 mg, oral, Nightly, First dose on Wed10/11/23 at 2100, Do not crush, chew, cut, dissolve, open or otherwise manipulate tablet/capsule. 1027 (DEC Hold - Provider: Automatic Transfer Provider - Reason: Patient not available)1225 (DEC Unhold - Provider: Automatic Transfer Provider)2101 (Given - Provider: Latisha Navarrete, RN) 2049 (Given - Provider: Tessy Woodruff, MARAH) tiZANidine (ZANAFLEX) tablet 2 mg 2 mg, oral, Nightly, First dose on Wed10/11/23 at 2100, Administer on an empty stomach 1027 (DEC Hold - Provider: Automatic Transfer Provider - Reason: Patient not available)1225 (DEC Unhold - Provider: Automatic Transfer Provider)2101 (Given - Provider: Latisha Navarrete, MARAH) 2049 (Given - Provider: Tessy Woodruff, MARAH) Continuous Medication Order 10/11/2023 10/12/2023 10/13/2023 Lactated Ringer's (LR) infusion () 100 mL/hr, intravenous, Continuous, Starting on Wed10/11/23 at 0345, For 10 hours 0449 (New Bag - Provider: Gladis Vera RN)1057 (Paused - Provider: Sheryl Bourne CRNA - Comment: Switch to gravity)1058 (Restarted - Provider: Sheryl Bourne CRNA)1127 (Anesthesia Volume Adjustment - Provider: Sheryl Bourne CRNA) PRN Medication Order 10/11/2023 10/12/2023 10/13/2023 acetaminophen (TYLENOL) tablet 650 mg 650 mg, oral, Every 4 hours PRN, 1st line for pain, fever, fever greater than 38.3 C, Starting on 10/10/23 at 2125, Indications: Fever, Pain 1027 (DEC Hold - Provider: Automatic Transfer Provider - Reason: Patient not available)1225 (DEC Unhold - Provider: Automatic Transfer Provider) 1421 (Given - Provider: Marva eVra, MARAH) 0751 (Given - Provider: Marva Vera, RN) albuterol HFA (PROVENTIL HFA,VENTOLIN HFA,PROAIR HFA) 90 mcg/actuation inhaler 2 puff 2 puff, inhalation, Every 4 hours PRN (registered respiratory technician), wheezing, shortness of breath, Starting on Wed10/11/23 at 0326 1027 ([facility] Hold - Provider: Automatic Transfer Provider - Reason: Patient not available)1225 ([facility] Unhold - Provider: Automatic Transfer Provider) Carrier Fluids for Secondary Infusion - 0.9% Sodium Chloride 30 mL, intravenous, As needed, For priming tubing and/or flushing, Starting on 10/10/23 at 2125, 0-250 ml/hr to flush line after IV infusions when no maintenance IV ordered. Infuse 30mL at the same rate as the secondary infusion. Run as primary IV, not intended for KVO. 1027 ([facility] Hold - Provider: Automatic Transfer Provider - Reason: Patient not available)1225 ([facility] Unhold - Provider: Automatic Transfer Provider) ioversoL (OPTIRAY 350) syringe 75 mL (COMPLETED) 75 mL, intravenous, Once in imaging, contrast, Starting on Wed10/11/23 at 0958, For 1 dose 1005 (Contrast Given - Provider: Cindy Walker, RT) ondansetron (ZOFRAN) injection 4 mg(Linked Group 1) 4 mg, intravenous, Administer over 2 Minutes, Every 6 hours PRN, nausea, vomiting, if not tolerating PO, Starting on 10/10/23 at 2125, Indications: Nausea and Vomiting 1027 ([facility] Hold - Provider: Automatic Transfer Provider - Reason: Patient not available)1225 ([facility] Unhold - Provider: Automatic Transfer Provider) ondansetron ODT (ZOFRAN-ODT) disintegrating tablet 4 mg(Linked Group 1) 4 mg, oral, Every 6 hours PRN, nausea, vomiting, Starting on 10/10/23 at 2125, Indications: Nausea and Vomiting 1027 ([facility] Hold - Provider: Automatic Transfer Provider - Reason: Patient not available)1225 ([facility] Unhold - Provider: Automatic Transfer Provider) sodium chloride 0.9% flush 0.5-20 mL 0.5-20 mL, intra-catheter, As needed, line care, Starting on 10/10/23 at 2125, Flush volume based on line type and size. Flush before and after each use. 1027 ([facility] Hold - Provider: Automatic Transfer Provider - Reason: Patient not available)1225 ([facility] Unhold - Provider: Automatic Transfer Provider) 1000 (Given - Provider: Marva Vera RN) Linked Groups Order Group 1: ondansetron ODT (ZOFRAN-ODT) disintegrating tablet 4 mgJump to med 4 mg, oral, Every 6 hours PRN, nausea, vomiting, Starting on 10/10/23 at 2125, Indications: Nausea and Vomiting Or ondansetron (ZOFRAN) injection 4 mgJump to med 4 mg, intravenous, Administer over 2 Minutes, Every 6 hours PRN, nausea, vomiting, if not tolerating PO, Starting on 10/10/23 at 2125, Indications: Nausea and Vomiting documented in this encounter Orders Medications Ordered That Te ht Not Have Been Administered Count Last Ordered Date First Ordered Date senna-docusate (PERICOLACE) 8.6-50 mg per tablet 1 tablet 2 10/13/2023 10/11/[address] (PROTONIX) e xtended release tablet 40 mg 1 10/12/2023 albuterol HFA (PROVENTIL HFA ,VENTOLIN HFA,PROAIR HFA) 90 mcg/actuation inhaler 2 puff 2 10/11/2023 donepeziL (ARICEPT) tablet 10 mg 1 10/11/19 24 gabapentin (NEURONTIN) capsule 200 mg 1 10/2023 ioversoL (OPTIRAY 350) syringe 75 mL 1 10/2023 Lactated Ringer's (LR) infusion 1 levothyroxine (SYNTHROID) tablet 150 mcg 1 10/11/2023 mirtazapine (REMERON) tablet 7.5 mg 1 10/11 oxyBUTYnin XL (DITROPAN-XL) extended release tablet 15 mg 1 10/11/2023 pantoprazole (PROTONIX) 40 m g in sodium chloride 0.9% 10 mL IV Syringe 1 10/11/2023 tamsulosin (FLOMAX) extended release capsule 0.4 mg 1 10/11/2023 tiZANidine (ZANAFLEX) tablet 2 mg 1 024 acetaminophen (TYLENOL) tablet 650 mg 1 Carrier Fluids for Secondary Infusion - 0.9% Sodium Chloride 1 10/10/2023 famotidine (PEPCID) injection 10 mg 1 10/10 morphine injection 2 mg 1 10/10/2023 ondansetron (ZOFRAN) injection 4 mg 1 10/10 ondansetron ODT (ZOFRAN-ODT) disintegrating tablet 4 mg 1 10/10/2023 oxyCODONE (ROXICODONE) tablet 5 mg 1 2022 sodium chloride 0.9% flush 0.5-20 mL 2 09/12 Diet Count Last Ordered Date First Orde red Date ADULT DISCHARGE DIET 1 10/13/2023 Nursing Count Last Ordered Date First Orde red Date DISCHARGE ACTIVITY 1 10/13/2023 FOLLOW UP WITH ESTABLISHED PROVIDER 3 10/13 VERIFY INFORMED CONSENT 1 10/11/2023 Consult Count Last Ordered Date First Orde red Date IP CONSULT TO PULMONOLOGY 1 10/13/2023 IP CONSULT TO GASTROENTEROLOGY 1 10/11/2023 Admission Count Last Ordered Date First Orde red Date ADMIT TO INPATIENT 1 10/10/2023 Discharge Count Last Ordered Date First Orde red Date DISCHARGE PATIENT 1 10/13/2023 CORE MEASURES Count Last Ordered Date First Ord ered Date REASON FOR NO VTE PROPHYLAXI S - HOSPITAL ADMISSION - MEDICATIONS 1 10/10/2023 documented in this encounter Care Teams Rec[employer] Winder Relationship Specialty Start Date End Date Mark Ramos MD PCP - General Family Medicine 05/05/23 08/02/24 Unknown, Notinfile 03/12/22 [place] [id number] [facility] [address] [place] [address] 03/12/22 documented as of this encounter
--- OUTSIDE RECORDS SUMMARY | 2024-10-11 01:57 | XMS_ITS | Encounter Summary ---
Author Organization [facility] Healthcare Address [address] [place] [address] Care Team Providers Care Cement Mason Name Role Phone Wolfgang Serrano MD Primary Care Provider [phone] Unknown, Notinfile Unavailable Unavailable Santino Funk MD Unavailable [phone] Reason for Visit * Auth/Cert (Routine) Specialty Diagnoses / Procedures Referred By Contac t Referred To Contact Diagnoses Coffee ground emesis GI Bleed Procedures n/a Referral ID Status Reason Start Date Expiration Date Visits Re quested Visits Authorized [id number] 1 1 Encounter Details Date Type Department Care Team (Late st Contact Info) Description 10/11/2023 10:58 AM TEACHER HEARING IMPAIRED Anesthesia Event [facility] [address] [place] [address] Dioni Askew MD [address] [facility] ANESTHESIA [place], [place] [id number] Sheryl Bourne CRNA [address] [place] [address] Anesthesia Record Procedure Summary Procedure Name Responsible Anesthesiologist Anesthesia Start Time Anesthesia Stop Time ESOPHAGOGASTRODUODENOSCOPY BIOPSY Dioni Askew MD 10/11/23 1058 10/11/23 1132 Events Date Time Event Comment 10/11/2023 1027 In Room 1036 1058 An Start 1058 An Start Data 1101 An Induction The patient was reevaluated immediately before moderate or deep sedation use and before anesthesia induction. 1103 An Intubation 1107 Proc Start 1109 Anesthesia Ready 1114 Proc Fin 1123 An Extubation 1128 an stop data 1132 Handoff to RN I completed my handoff to the receiving nurse during which we: 1. Patient identified 2. Responsible provider identified 3. Pertinent medical history reviewed 4. Procedure type and surgical course discussed 5. Intraoperative anesthetic management and any significant issues discussed 6. Expectations and concerns for postop period discussed 7. Questions solicited from receiving nurse 8. Patient disposition at the time of handoff: No value filed. 1132 An Stop 1212 Out of Room Meds Name Total lidocaine (CARDIAC) syringe 2 % 3 mL propofol 100 mg succinylcholine 100 mg rocuronium 30 mg sugammadex 200 mg ondansetron 4 mg dexamethasone 4 mg/ml 4 mg Lactated Ringer's (LR) infusion 600 mL * Agents Name Sevoflurane Inspired Sevoflurane * Blood No blood administrations on file. Lines, Drains, and Airways Type Details Placement Removal RETIRED Surgical Site 12/28/19; 1249; No ; Neck; 12/07/23; 1832; Not present on admission 12/28/19 1249 by Prem Woodruff RN 12/07/23 1832 by Ayleen Kathleen RN Closed/Suction/Open Drain 12/28/19; 1319; No; 1; Left; Neck; Bulb; 10 Fr.; 1 12/28/19 1319 by Prem Woodruff RN 12/07/23 1831 by Dioni Lozano RN Closed/Suction/Open Drain 11/24/21; 0902; No; 1; Right; Knee; Accordion 11/24/21 0902 by Sowmya Chapa RN 12/07/23 1830 by Dioni Lozano RN RETIRED Surgical Site 11/24/21; 0902; Le ft; Knee; 12/18/23; 0658 11/24/21 0902 by Sowmya Chapa RN 12/18/23 0658 by Lizette Mike RN RETIRED Surgical Site 11/24/21; 0902; Right; Knee; 12/18/23; 0658 11/24/21 09 by Sowmya Chapa RN 12/18/23 0658 by Lizette Mike RN RETIRED Negative Pressure Wound Therapy 11/24/21; 0903; [place]; Surgical incision; Anterior, Right; Knee; 12/07/23; 1830 (unknown. not present upon admission) 11/24/21 09 by Sowmya Chapa RN 12/07/23 1830 by Dioni Lozano RN Peripheral IV Placement Date: 10/10/23; Placement Time: 1999; Existing LDA Placed by: Other hospital; Catheter Size: 18 G; Orientation: Anterior, Left; Location: Forearm; Removal Date: 10/12/23; Removal Time: 1700; Removal Reason: Removed by unknown clinician (Comment) 10/10/231999 by Gladis Vera RN 10/12/23 1700 by Tessy Woodruff RN ETT Placement Date: 10/11/23; Placement Time: 1111 (created via procedure documentation); Mask Ventilation: 0; Technique: Video laryngoscopy; Type: ETT - single; Single Lumen Tube Size: 8 mm; Cuffed: Yes; Blade Size: 4; Location: Oral; Insertion Attempts: 1; Placement Verification: Auscultation, Capnometry; Removal Date: 10/11/23; Removal Time: 1123 10/11/23 1111 by Sheryl Bourne CRNA 10/11/23 1123 by Sheryl Bourne CRNA documented in this encounter Social History Tobacco [...] relatives? Three times a week 11/25/2021 Attends Holiness Services Not on file 11/25 Active Member [...] slept in a prison (including now)? No 11/25/2021 Personal Safety Answer Date Recorded Getting School Help Needed Denies 10/10 Sex and Gender Information Value Date Recorded Sex Assigned at Not on file Legal Sex Male 3:25 PM TEACHER HEARING IMPAIRED Gender Identity Not on file Sexual Orientation Not on file documented as of this encounter OR Notes * Anesthesia Postprocedure Evaluation - Sheryl Bourne CRNA - 10/11/2023 11:32 AM CST Patient: Abrahan Gtz Jr. Procedure Summary Date: 10/11/23 Room / Location: [facility] ENDOSCOPY Anesthesia Start: 1058 Anesthesia Stop: 1132 Procedure: ESOPHAGOGASTRODUODENOSCOPY BIOPSY Diagnosis: (hematemesis) Providers: Jose Martin Gonzalez MD Responsible Provider: Dioni Askew MD Anesthesia Type: general ASA Status: 3 - Emergent Anesthesia Type: general Last vitals BP 151/82 Pulse 78 Temp 36.6 ??C (97.9 ??F) (Oral) Resp 24 SpO2 99% Anesthesia Post Evaluation Patient location during evaluation: PACU Patient participation: complete - patient participated Level of consciousness: follows simple commands and arouses security consultant Pain management: adequate Airway patency: adequate Cardiovascular status: acceptable and hemodynamically stable Respiratory status: acceptable Hydration status: acceptable Pt is: normothermic Nausea/Vomiting status: none No notable events documented. HER HEARING IMPAIRED * Anesthesia Procedure Notes - Sheryl Bourne CRNA - 10/11/2023 11:11 AM TEACHER HEARING IMPAIRED Associated Order(s): Airway Airway Patient location: OR Urgency: elective Indications for airway management: anesthesia Difficult airway: no Staff: Supervising provider: Dioni Askew MD Placed by: OWNER: Sheryl Bourne CRNA Emergent airway documentation: Risks and benefits discussed: yes Consent obtained: yes Consent given by: patient Airway prep: Preoxygenated: yes Patient position: sniffing Mask difficulty assessment: 0 - not attempted Sedation level during airway: GA Final airway details: Final airway type: endotracheal airway Tube type: ETT ETT size: 8.0 mm Cuffed: yes Technique used for successful ETT placement: video laryngoscopy Devices/Methods used in placement: stylet Insertion site: oral Video blade type: Millan Blade size: 4 Cormack-Lehane (video): grade I - full view of glottis Cuff inflated with: air Placement verified by: auscultation and CO2 detection Airway secured with: silk tape Number of attempts: 1 HER HEARING IMPAIRED * Anesthesia Preprocedure Evaluation - Dioni Askew MD - 10/11/2023 10:18 AM CST Images from the original note were not included. Anesthesia Evaluation Abrahan Gauthier is a 78 y.o. male admit with UGI bleed. Last vomited 10/10/2023. Procedure(s): ESOPHAGOGASTRODUODENOSCOPY Pre-Op Diagnosis Codes: * Coffee ground emesis [K92.0] NPO: after MN HISTORY Past Medical History Information obtained from: patient and chart. Neurological + Seizures (Sz x 2, Last Sz ~1997, unknown etiology) + Dementia/mild cognitive impairment - dementia. Etiology: Alzheimer type. Comments: A&O x 3 Cardiovascular + Current valvular disease - TR - mild. + PAD/Aorta disease - Pertinent negatives: PR and atrial fibrillation Comments: TTE (02/2020): Conclusions: Normal left ventricular size. Mild concentric left ventricular hypertrophy. Diastolic dysfunction is present. Ejection fraction is measured at 64 %. Normal atrial septum. Saline contrast study performed without evidence of right to left shunt. Normal structure of the mitral valve. Trivial regurgitation of the mitral valve. Normal structure of the tricuspid valve. Estimated peak RVSP is 32 mmHg. Mild tricuspid regurgitation. Respiratory + Asthma Rescue inhaler use: daily. Hospitalizations/ER in the last year: 1. Most recent exacerbation: 08/2023. Hepatic / Heme + History of anemia - iron deficiency Gastrointestinal + GERD - on daily therapy. Asymptomatic. Renal / Renal/ system: negative Musculoskeletal/Pain + Osteoarthritis Endocrine / Other + Thyroid disease - hypothyroidism + Obesity (BMI >30) Functional Capacity Functional capacity: <4 METs Review of Systems + SOB (BEGUM, worsening) + recent cold/flu (COVID ~3 weeks ago, breathing back to baseline per patient) + chest pain Pertinent negatives: productive cough; fever and heartburn Patient Active Problem List Diagnosis Date Noted Upper GI bleed 10/11/2023 Acquired hypothyroidism 10/11/2023 Coffee ground emesis 10/10/2023 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 05/18/2023 Biceps tendinitis of left upper extremity 05/18/2023 Tear of left glenoid labrum 05/18/2023 Hx of total knee replacement, right 12/01/2022 Neuropathy ([facility]) 12/01/2022 Idiopathic peripheral neuropathy Abnormality of gait and mobility Pain due to total right knee replacement ([facility]) ([facility]) 04/28/2022 Hamstring tendinitis of right thigh 04/28/2022 Quadriceps weakness 04/28/2022 Edema 04/04/2020 Intermittent claudication ([facility]) 04/04/2020 Iron deficiency anemia 04/04/2020 Peripheral vascular disease ([facility]) 04/04/2020 Goiter 12/05/2019 Subchondral insufficiency fracture of condyle of left femur ([facility]) ([facility] [...] with delayed healing, subsequent encounter Clotting disorder ([facility]) ([facility] [...] insufficiency fracture of condyle of left femur ([facility]) ([facility]) Vertigo Vision changes Visual disturbance hx of double vision, corrective lenses Past Surgical History: Procedure Laterality Date CATARACT EXTRACTION, BILATERAL Bilateral 2018 HERNIA REPAIR 1979 Hiatal Hernia repair KNEE ARTHROSCOPY Bilateral THYROIDECTOMY 12/27/2019 Patient denies any personal or family hx/o anes comp. No Known Allergies Med List Status: Pharmacy Complete Set By: Manuel Carreno MD at 10/11/2023 3:19 AM Taking? Last Dose Start Date End Date Provider albuterol HFA (PROVENTIL HFA,VENTOLIN HFA,PROAIR HFA) 90 mcg/actuation inhaler -- 02/03/23 -- Garett Shah MD capsaicin 0.1 % cream -- 12/03/22 -- Nayan Mahajan II, MD Apply to your feet three to four times a day. cholecalciferol (VITAMIN D-3) 2000 unit capsule -- 12/31/19 -- Ruth Coffey MD Take 1 capsule (2,000 Units total) by mouth daily Patient taking differently: Take 1 capsule (2,000 Units total) by mouth nightly diclofenac DR (VOLTAREN) 50 mg EC tablet -- 09/13/23 -- Carol Aceves PA Take 1 tablet by mouth twice daily as needed for pain donepeziL (ARICEPT) 10 mg tablet -- 06/04/23 -- Nayan Mahajan II, MD Take 1 tablet by mouth nightly furosemide (LASIX) 20 mg tablet -- -- -- Garett Shah MD gabapentin (NEURONTIN) 100 mg capsule -- 10/08/23 -- Nayan Mahajan II, MD TAKE 2 CAPSULES BY MOUTH THREE TIMES DAILY levothyroxine (SYNTHROID) 150 mcg tablet -- 09/19/21 -- Garett Shah MD lidocaine (ASPERCREME) 4 % adhesive patch,medicated () -- 10/03/22 10/15/[address] 1 patch on the skin daily for 12 days melatonin 10 mg tablet -- -- -- Garett Shah MD mirtazapine (REMERON) 7.5 mg tablet -- 12/19/21 -- Garett Shah MD omeprazole (PriLOSEC) 20 mg capsule -- 10/21/16 -- Nayan Mahajan MD take 1 capsule by oral route every day before a meal oxybutynin XL (DITROPAN-XL) 10 mg 24 hr tablet -- 11/07/21 -- ProviderGarett MD sildenafiL, pulm.hypertension, (REVATIO) 20 mg tablet -- 04/17/22 -- Garett Shah MD tamsulosin (FLOMAX) 0.4 mg extended release capsule -- 01/29/20 -- Garett Shah MD tiZANidine (ZANAFLEX) 2 mg tablet -- 09/08/23 -- Nayan Mahajan II, MD TAKE 1 TABLET BY MOUTH EVERY 8 HOURS NEEDED FOR MUSCLE SPASM Patient taking differently: Take 1 tablet (2 mg total) by mouth nightly turmeric root extract 500 mg capsule -- -- -- Garett Shah MD Current Facility-Administered Medications: acetaminophen (TYLENOL) tablet 650 mg, 650 mg, oral, Q4H PRN albuterol HFA (PROVENTIL HFA,VENTOLIN HFA,PROAIR HFA) 90 mcg/actuation inhaler 2 puff, 2 puff, inhalation, Q4H PRN (RT) Carrier Fluids for Secondary Infusion - 0.9% Sodium Chloride, 30 mL, intravenous, PRN donepeziL (ARICEPT) tablet 10 mg, 10 mg, oral, Nightly gabapentin (NEURONTIN) capsule 200 mg, 200 mg, oral, TID Lactated Ringer's (LR) infusion, 100 mL/hr, intravenous, Continuous, Last Rate: 100 mL/hr at 10/11/23 0449, 100 mL/hr at 10/11/23 044 levothyroxine (SYNTHROID) tablet 150 mcg, 150 mcg, oral, Daily - 0600, 150 mcg at 10/11/23 0628 mirtazapine (REMERON) tablet 7.5 mg, 7.5 mg, oral, Nightly ondansetron ODT (ZOFRAN-ODT) disintegrating tablet 4 mg, 4 mg, oral, Q6H PRN OR ondansetron (ZOFRAN) injection 4 mg, 4 mg, intravenous, Q6H PRN oxyBUTYnin XL (DITROPAN-XL) extended release tablet 15 mg, 15 mg, oral, Nightly pantoprazole (PROTONIX) 40 mg in sodium chloride 0.9% 10 mL IV Syringe, 40 mg, intravenous, BID, 40mg at 10/11/23 0911 sodium chloride 0.9% flush 0.5-20 mL, 0.5-20 mL, intra-catheter, Q8H AIMEE, 10 mL at 10/10/23 2359 sodium chloride 0.9% flush 0.5-20 mL, 0.5-20 mL, intra-catheter, PRN tamsulosin (FLOMAX) extended release capsule 0.4 mg, 0.4 mg, oral, Nightly tiZANidine (ZANAFLEX) tablet 2 mg, 2 mg, oral, Nightly Social History Tobacco Use Smoking Status Former Types: Cigarettes Start date: 1965 Quit date: 1966 Years since quittin.0 Smokeless Tobacco Never Alcohol Use: Not At Risk (06/29/2022) AUDIT-C Frequency of Alcohol Consumption: Monthly or less Average Number of Drinks: 3 or 4 Frequency of Binge Drinking: Never Substance and Sexual Activity Drug Use No Family History Problem Relation Age of Onset Heart failure Other Family history of Congestive heart failure; Heart disease Other Family history of Heart disease; Osteoarthritis Other Family history of Osteoarthritis; Osteoporosis Other Family history of Osteoporosis; Heart attack Mother Heart attack Father Heart attack Sister Vitals: 10/10/23 2116 10/11/23 0558 BP: 126/86 130/76 Pulse: 84 75 Resp: 16 16 Temp: 37.4 ??C (99.3 ??F) 36.6 ??C (97.9 ??F) SpO2: 98% 98% PT: No results found for requested labs within last 30 days. INR: No results found for requested labs within last 30 days. APTT: No results found for requested labs within last 30 days. Hgb A1C: No results found for requested labs within last 30 days. CBC RBC: 10/11/2023: 3.47 M/cumm (L) RDW: No results found for requested labs within last 30 days. MCHC: 10/11/2023: 33.1 g/dL MCH: 10/11/2023: 34.3 pg (H) MCV: 10/11/2023: 103.5 fL (H) Hct: 10/11/2023: 35.9 % (L) Hgb: 10/11/2023: 11.9 g/dL (L) WBC: 10/11/2023: 7.8 K/cumm MPV: 10/11/2023: 11.4 fL Platelets: 10/11/2023: 241 K/cumm RDW CV: 10/11/2023: 14.4 % RDW Sd: 10/11/2023: 55.2 fL (H) BMP Glucose: 10/10/2023: 109 mg/dL Calcium: 10/10/2023: 9.1 mg/dL Sodium: 10/10/2023: 139 mmol/L Potassium: 10/10/2023: 4.4 mmol/L CO2: 10/10/2023: 25 mmol/L Chloride: 10/10/2023: 104 mmol/L BUN: 10/10/2023: 28 mg/dL (H) Creatinine: 10/10/2023: 1.25 mg/dL DOS Physical Exam Medical history, medications, and allergies reviewed. Attestation: This PAT evaluation 10/11/2023. Airway Exam: Mallampati: III Cervical ROM: FROM TM distance: >4 Cardiovascular Exam: Rate: regular Rhythm: regular Pulmonary Exam: LCTA, bilat Dental Exam: Otherwise appears intact Anesthesia Plan ASA 3- emergent My patient is approved for the Anesthesia Controlled Medication protocol when under care of a OWNER Planned anesthesia: General Team communication plan: oral ET tube Induction: Induction: intravenous and RSI. Postoperative Plan: No plan for postoperative opioid use. No postoperative mechanical ventilation intended. Patient's planned disposition post procedure is Floor. Informed Consent: Discussed plan with OWNER. Anesthesia plan and risks discussed with patient. Consent and Attending signature: I and/or my designee have discussed the anesthesia plan, benefits, possible alternatives, parental presence at time of induction (if indicated), and clinically relevant risks that may include dental injury, unintentional awareness, and/or other complications. The patient and/or parent/legal guardian understand, and agree to proceed. All questions answered. HER HEARING IMPAIRED HER HEARING IMPAIRED documented in this encounter Plan of Treatment Upcoming Encounters Date Type Department Care Team (Latest Contact Info) Description 10/23/2024 10:00 AM TEACHER HEARING IMPAIRED Hospital Encounter [facility] Operating Room [address] [place] [address] [place] [address] [address] 10/23/2024 10:00 AM TEACHER HEARING IMPAIRED - 10/23/2024 1:00 PM TEACHER HEARING IMPAIRED Surgery [facility] Operating Room [address] [place] [address] [place] [address] [address] ARTHROPLASTY TOTAL KNEE LEFT Scheduled Procedures Name Priority Associated Diagnoses Date/Ti me ARTHROPLASTY TOTAL KNEE left knee osteoarthritis 10/23/2024 10:00 AM TEACHER HEARING IMPAIRED ESOPHAGOGASTRODUODENOSCOPY Dysphagia, unspecified type documented as of this encounter Procedures Procedure Name Priority Date/Time Associated Diagnosis Comments CT AN PROCEDURE PLACEHOLDER Routine 10/11/2023 11:[address] AN ELECTIVE ENDOTRACHEAL AIRWAY Routine 10/11/2023 11:11 AM TEACHER HEARING IMPAIRED documented in this encounter Results * CT AN ELECTIVE ENDOTRACHEAL AIRWAY, CT AN PROCEDURE PLACEHOLDER (10/11/2023 11:11 AM TEACHER HEARING IMPAIRED) Narrative Sheryl Bourne CRNA - 10/11/2023 11:11 AM TEACHER HEARING IMPAIRED Sheryl Bourne CRNA ? 10/11/2023 11:11 AM Airway Patient location: OR Urgency: elective Indications for airway management: anesthesia Difficult airway: no Staff: Supervising provider: Dioni Askew MD Placed by: OWNER: Sheryl Bourne CRNA Emergent airway documentation: Risks and benefits discussed: yes Consent obtained: yes Consent given by: patient Airway prep: Preoxygenated: yes Patient position: sniffing Mask difficulty assessment: 0 - not attempted Sedation level during airway: GA Final airway details: Final airway type: endotracheal airway Tube type: ETT ETT size: 8.0 mm Cuffed: yes Technique used for successful ETT placement: video laryngoscopy Devices/Methods used in placement: stylet Insertion site: oral Video blade type: Millan Blade size: 4 Cormack-Lehane (video): grade I - full view of glottis Cuff inflated with: air Placement verified by: auscultation and CO2 detection Airway secured with: silk tape Number of attempts: 1 us Dioni Askew MD ANESTHESIA ORDERAB LES Final Result documented in this encounter Visit Diagnoses Not on filedocumented in this encounter Administered Medications Inactive Administered Medications - up to 3 most recent administrations Medication Order MAR Action Action Date Dose Rate Site dexAMETHasone (DECADRON) 4 mg/mL injection intravenous, Administer over 2 Minutes, As needed, Starting on Wed10/11/23 at 1112, Anesthesia Intra-op Given 10/11/2023 11:12 AM TEACHER HEARING IMPAIRED 4 mg Lactated Ringer's (LR) infusion 100 mL/hr, intravenous, Continuous, Starting on Wed10/11/23 at 0345, For 10 hours Restarted 10/11/2023 10:58 AM TEACHER HEARING IMPAIRED New Bag 10/11/2023 4:49 AM TEACHER HEARING IMPAIRED 100 mL/hr 100 mL/hr lidocaine (cardiac) (XYLOCAINE) preservative free injection intravenous, As needed, Starting on Wed10/11/23 at 1101, Anesthesia Intra-op, Indications: Ventricular ArrhythmiasIndications:Ventricular Arrhythmias Given 10/11/2023 11:01 AM TEACHER HEARING IMPAIRED 3 mL ondansetron (ZOFRAN) injection intravenous, Administer over 2 Minutes, As needed, Starting on Wed10/11/23 at 1118, Anesthesia Intra-op Given 10/11/2023 11:18 AM TEACHER HEARING IMPAIRED 4 mg propofoL (DIPRIVAN) 10 mg/mL IV intravenous, As needed, Starting on Wed10/11/23 at 1101, Anesthesia Intra-op New Bag 10/11/2023 11:01 AM TEACHER HEARING IMPAIRED 100 mg rocuronium (ZEMURON) injection intravenous, As needed, Starting on Wed10/11/23 at 1112, Anesthesia Intra-op Given 10/11/2023 11:12 AM TEACHER HEARING IMPAIRED 30 mg succinylcholine (ANECTINE) injection intravenous, As needed, Starting on Wed10/11/23 at 1101, Anesthesia Intra-op Given 10/11/2023 11:01 AM TEACHER HEARING IMPAIRED 100 mg sugammadex (BRIDION) 100 mg/mL intravenous solution intravenous, As needed, Starting on Wed10/11/23 at 1118, Anesthesia Intra-op Given 10/11/2023 11:18 AM TEACHER HEARING IMPAIRED 200 mg documented in this encounter Care Teams Cement Mason Relationship Specialty Start Date End Date Wolfgang Serrano MD PCP - General Family Medicine 05/05/23 08/02/24 Unknown, Notinfile 03/12/22 [place] [address] [facility] [place] [address] 03/12/22 documented as of this encounter
--- OUTSIDE RECORDS SUMMARY | 2024-10-11 01:57 | XMS_ITS | Encounter Summary ---
Author Organization [facility] Healthcare Address [address] [place] [address] Care Team Providers Care Retail Event Assistant Name Role Phone Wolfgang Serrano MD Primary Care Provider [phone] Unknown, Notinfile Unavailable Unavailable Santino Funk MD Unavailable [phone] Chuy Enriquez MD Unavailable Luis Felipe Cedillo MD Unavailable [phone] Marlene Thornton MD Unavailable [phone] Encounter Details Date Type Department Care Team (Late st Contact Info) Description 11/18/2023 Documentation [facility] [address] [facility] [address] [place] [address] Yi Lopez Social History Tobacco Use Types Packs/Day Years [...] relatives? Three times a week 11/25/2021 Attends [employer] Services Not on file 11/25 Active Member [...] Legal Sex Male 3:25 PM SOFTWARE DEVELOPMENT ANALYST Gender Identity Not on file Sexual Orientation Not on file documented as of this encounter Progress Notes * Yi Lopez - 11/18/2023 1:21 PM CST Left message with PCP to call Dr. Enriquez WARE DEVELOPMENT ANALYST documented in this encounter Plan of Treatment Upcoming Encounters Date Type Department Care Team (Latest Contact Info) Description 10/23/2024 10:00 AM SOFTWARE DEVELOPMENT ANALYST Hospital Encounter [facility] Operating Room [address] [place] [address] [place] [address] [facility] [address] [place] [address] 10/23/2024 10:00 AM SOFTWARE DEVELOPMENT ANALYST - 10/23/2024 1:00 PM SOFTWARE DEVELOPMENT ANALYST Surgery [facility] Operating Room [address] [place] [address] [place] [address] [id number] ARTHROPLASTY TOTAL KNEE LEFT Scheduled Procedures Name Priority Associated Diagnoses Date/Ti me ARTHROPLASTY TOTAL KNEE left knee osteoarthritis 10/23/2024 10:00 AM SOFTWARE DEVELOPMENT ANALYST ESOPHAGOGASTRODUODENOSCOPY Dysphagia, unspecified type documented as of this encounter Visit Diagnoses Not on filedocumented in this encounter Care Teams Retail Event Assistant Relationship Specialty Start Date End Date Wolfgang Serrano MD PCP - General Family Medicine 05/05/23 08/02/24 Unknown, Notinfile 03/12/22 [place] [address] [facility] [address] [place] [address] 03/12/22 Chuy Enriquez MD [address] [facility] [address] [place] [address] Consulting Physician Pulmonary Disease 10/13/23 Luis Felipe Cedillo MD [address] [facility] [address] [place] [address] Consulting Physician Gastroenterology 10/13/23 Marlene Thornton MD [address] [facility] [address], [place] [address] Surgeon Vascular Surgery 11/10/23 documented as of this encounter
--- OUTSIDE RECORDS SUMMARY | 2024-10-11 01:57 | XMS_ITS | Encounter Summary ---
Author Organization [facility] Address [address] [place] [address] Phone Care Team Providers Care Community Representative Name Role Phone Wolfgang Serrano MD Primary Care Provider Wolfgang Serrano MD Primary Care Provider Wolfgang Serrano MD Unavailable Unknown, Notinfile Unavailable Unavailable Santino Funk MD Unavailable [phone] Chuy Enriquez MD Unavailable [phone] Luis Felipe Cedillo MD Unavailable Marlene Thornton MD Unavailable [phone] Reason for Visit * Reason Onset Date Comments Prior Auth 11/23/2023 Encounter Details Date Type Department Care Team (Late st Contact Info) Description 11/23/2023 Telephone [facility] Dermatology [address] [facility] [address] [place] [address] Byron Woody IV, MD PhD [address] [facility] [address] [place], [place] [id number] Prior Auth Social History Tobacco Use Types Packs/Day Years [...] materials from doctor or pharmacy Sometimes 03/08/2024 [facility] Utilities Answer Date Recorded In [...] often do you attend chur ch or christian services? More than 4 times per year [...] Recorded Patient Health Questionnaire-2 Score 0 01/06/2024 [facility] - Occupational Stress Questionnaire Answer Date [...] on file Legal Sex Male 3:25 PM PHARMACISTS Gender Identity Not on file Sexual Orientation Not on file documented as of this encounter Miscellaneous Notes * Telephone Encounter - Teena Varela - 10/09/2024 4:55 PM CST PA disregarded as medication is no longer on the medication list MACISTS * Telephone Encounter - Norma Pelletier - 12/08/2023 9:54 AM CST mupirocin (BACTROBAN) 2 % ointment Status: Approved Approved until 10/10/2024 Faxed request to [employer] MACISTS MACISTS * Telephone Encounter - Elizabet Bowden - 12/06/2023 10:36 AM CST Benefits are coming back active through [employer]. Can you confirm you are still not able to get a confirmation for insurance? MACISTS * Telephone Encounter - Norma Pelletier - 11/30/2023 7:30 AM CST Images from the original note were not included. The chart shows no active pharmacy coverage. [employer] is active medical coverage but is not pharmacy coverage. MACISTS * Telephone Encounter - Elizabet Bowden - 11/29/2023 4:12 PM CST Spoke to patient and he states his insurance is [employer] and he goes through [employer] on file. No mailorder. I ran the insurance on our end and it went through. MACISTS * Telephone Encounter - Noram Pelletier - 11/29/2023 3:04 PM CST [employer] is coming back that this patient has no active coverage with [employer]. Does this patient have a new pharmacy benefit? MACISTS * Telephone Encounter - Kirsten Hanna - 11/29/2023 9:06 AM CST Pharmacy called wanting update on PA for med Mupirocin MACISTS * Telephone Encounter - Elizabet Bowden - 11/23/2023 4:16 PM CST Pa needed on mupirocin (BACTROBAN) 2 % ointment. MACISTS documented in this encounter Plan of Treatment Upcoming Encounters Date Type Department Care Team (Latest Contact Info) Description 10/23/2024 10:00 AM PHARMACISTS Hospital Encounter [facility] Operating Room [address] [place] [address] [place] [address] [address] 10/23/2024 10:00 AM PHARMACISTS - 10/23/2024 1:00 PM PHARMACISTS Surgery [facility] Operating Room [address] [place] [address] [place] [address] [address] ARTHROPLASTY TOTAL KNEE LEFT Scheduled Procedures Name Priority Associated Diagnoses Date/Ti me ARTHROPLASTY TOTAL KNEE left knee osteoarthritis 10/23/2024 10:00 AM PHARMACISTS ESOPHAGOGASTRODUODENOSCOPY Dysphagia, unspecified type documented as of this encounter Visit Diagnoses Not on filedocumented in this encounter Care Teams Community Representative Relationship Specialty Start Date End Date Wolfgang Serrano MD PCP - General Family Medicine 05/05/23 08/02/24 Wolfgang Serrano MD [address] [address] PCP - General Family Medicine 08/03/24 Wolfgang Serrano MD Family Medicine 08/03/24 Unknown, Notinfile 03/12/22 [place] [address] [place] [address] 03/12/22 Chuy Enriquez MD [address] [place] [address] Consulting Physician Pulmonary Disease 10/13/23 Luis Felipe Cedillo MD [address] [place], [place] [id number] Consulting Physician Gastroenterology 10/13/23 Marlene Thornton MD [address] [place] [address] Surgeon Vascular Surgery 11/10/23 documented as of this encounter
--- OUTSIDE RECORDS SUMMARY | 2024-10-11 01:57 | XMS_ITS | Encounter Summary ---
Author Organization [facility] Healthcare Address [address] [place] [address] Care Team Providers Care Building Analyst/Supervisor Name Role Phone Wolfgang Serrano MD Primary Care Provider [phone] Unknown, Notinfile Unavailable Unavailable Santino Funk MD Unavailable Chuy Enriquez MD Unavailable Luis Felipe Cedillo MD Unavailable Marlene Thornton MD Unavailable Encounter Details Date Type Department Care Team (Late st Contact Info) Description 11/18/2023 10:00 AM UROLOGIST MD Office Visit [facility] [address] [facility] [address] [place] [address] Chuy Enriquez MD [address] [place] [address] Nocturnal cough (Primary Dx); Lung [...] on file Legal Sex Male 3:25 PM UROLOGIST MD Gender Identity Not on file Sexual Orientation Not on file documented as of this encounter Progress Notes * Chuy Enriquez MD - 11/18/2023 10:00 AM CST ASSESSMENT/PLAN: Nocturnal cough Related to hiatal hernia, reflux Sx are [...] able 6) Stay uptodate with health maintenance/vaccinations Lung nodule RLL nodule in a patient without clear risk factors for pulmonary malignancy Recs: 1) Repeat chest CT is scheduled for January 2024 HISTORY OF PRESENT ILLNESS: Abrahan Gtz Jr. is a 78 y.o. 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 Available imaging from [facility] personally reviewed Radiology reports from care everywhere [...] healing, subsequent encounter Clotting disorder (CMS/HCC) ([facility]) Complex tear of medial meniscus of left knee as current injury Complex tear of medial meniscus of right knee as current injury Cramps of lower extremity Diverticulitis of colon Easy bruisability Fatigue Frequent urination Gastroesophageal reflux disease GERD Hypothyroidism Incontinence of urine Muscle weakness Osteoarthritis Osteoarthritis Peptic ulcer Peptic ulcer disease Seizures ([facility]) 1997 last seizure in 1997 SOB (shortness of breath) on exertion Subchondral insufficiency fracture of condyle of left femur ([facility]) ([facility]) Vertigo Vision changes Visual disturbance hx of double vision, corrective lenses Social History Tobacco Use Smoking Status Former Types: Cigarettes Start date: 1965 Quit date: 1966 Years since quittin.1 Smokeless Tobacco Never Social History Tobacco Use [...] agitation Neurologic: awake/alert, no focal motor deficits OGIST MD documented in this encounter Miscellaneous Notes * Assessment & Plan Note - Chuy Enriquez MD - 11/18/2023 2:34 PM UROLOGIST MD Associated Problem(s): Lung nodule RLL nodule in a patient without clear risk factors for pulmonary malignancy Recs: 1) Repeat chest CT is scheduled for January 2024 OGIST MD * Assessment & Plan Note - Chuy Enriquez MD - 11/18/2023 2:34 PM UROLOGIST MD Associated Problem(s): Nocturnal cough Related to hiatal hernia, reflux Sx are [...] able 6) Stay uptodate with health maintenance/vaccinations OGIST MD documented in this encounter Plan of Treatment Upcoming Encounters Date Type Department Care Team (Latest Contact Info) Description 10/23/2024 10:00 AM UROLOGIST MD Hospital Encounter [facility] Operating Room [id number] [place] [address] [place] [address] [address] 10/23/2024 10:00 AM UROLOGIST MD - 10/23/2024 1:00 PM UROLOGIST MD Surgery [facility] Operating Room [id number] [place] [address] [place] [address] [address] ARTHROPLASTY TOTAL KNEE LEFT Scheduled Procedures Name Priority Associated Diagnoses Date/Ti me ARTHROPLASTY TOTAL KNEE left knee osteoarthritis 10/23/2024 10:00 AM UROLOGIST MD ESOPHAGOGASTRODUODENOSCOPY Dysphagia, unspecified type documented as of this encounter Visit Diagnoses Diagnosis Nocturnal cough- Primary Lung nodule Other diseases of lung, not elsewhere classified documented in this encounter Care Teams Building Analyst/Supervisor Relationship Specialty Start Date End Date Wolfgang Serrano MD PCP - General Family Medicine 05/05/23 08/02/24 Unknown, Notinfile 03/12/22 [place] [address] [facility] [address] [place] [address] 03/12/22 Chuy Enriquez MD [address] [facility] [address] [place] [address] Consulting Physician Pulmonary Disease 10/13/23 Luis Felipe Cedillo MD [address] [facility] [address] [place] [address] Consulting Physician Gastroenterology 10/13/23 Marlene Thornton MD [address] [facility] [address] [address] Surgeon Vascular Surgery 11/10/23 documented as of this encounter
--- OUTSIDE RECORDS SUMMARY | 2024-10-11 01:57 | XMS_ITS | Encounter Summary ---
Author Organization [facility] Healthcare Address [address] [place] [address] Care Team Providers Care Obiee Consultant Name Role Phone Wolfgang Serrano MD Primary Care Provider Unknown, Notinfile Unavailable Unavailable Santino Funk MD Unavailable [phone] Encounter Details Date Type Department Care Team (Latest Contact Info) Description 10/10/2023 11:17 AM METAPHYSICIST - 10/10/2023 11:59 PM [facility] Hospital Encounter [facility] [address] [place] [address] Discharge Disposition: Discharge to home or self [...] relatives? Three times a week 11/25/2021 Attends [employer] Services Not on file 11/25 Active Member [...] in a longterm (including now)? 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 Take 1 tablet by mouth twice daily as needed for pain 60 tablet 09/13/2023 4 furosemide (LASIX) 20 mg tablet Take 1 tablet (20 mg total) by mouth 2 (two) times a day 4 gabapentin (NEURONTIN) 100 mg capsuleIndication s:Neuropathic pain TAKE 2 CAPSULES BY MOUTH THREE [...] before a meal 0 0 10/21/2016 4 omeprazole (PriLOSEC) 20 mg capsule Take 2 capsules (40 mg total) by mouth daily 60 capsule 11 10/13/2023 4 polyethylene glycol (MIRALAX) 17 gram packetIndications :constipation Take 1 packet (17 g total) by mouth daily as needed for constipation 4 senna-docusate (PERICOLACE) 8.6-50 mg Take 1 tablet by mouth nightly 4 sildenafiL, pulm.hypertension , (REVATIO) 20 mg tablet Take 1 tablet (20 mg total) by mouth daily 04/17/2022 4 traMADoL (ULTRAM) 50 mg tablet TAKE 1 TABLET BY MOUTH EVERY 6 HOURS NEEDED FOR PAIN 20 tablet 01/04/2023 4 traZODone (DESYREL) 50 mg tablet Take by mouth nightly 12 to 1 tablet 08/15/2021 4 UNABLE TO [...] (Latest Contact Info) Description 10/23/2024 10:00 AM METAPHYSICIST Hospital Encounter [facility] Operating Room [address] [place] [address] [place] [address] [facility] [address] [place] [address] 10/23/2024 10:00 AM METAPHYSICIST - 10/23/2024 1:00 PM METAPHYSICIST Surgery [facility] Operating Room [address] [place] [address] [place] [address] [facility] [address] [place] [address] ARTHROPLASTY TOTAL KNEE LEFT Scheduled Procedures Name Priority Associated Diagnoses Date/Ti me ARTHROPLASTY TOTAL KNEE left knee osteoarthritis 10/23/2024 10:00 AM METAPHYSICIST ESOPHAGOGASTRODUODENOSCOPY Dysphagia, unspecified type documented as of this encounter Procedures Procedure Name Priority Date/Time Associated Diagnosis Comments CT BODY OUTSIDE REFERENCE Routine 10/10/2023 11:17 AM METAPHYSICIST documented in this encounter Results * CT Body Outside Reference (10/10/2023 11:17 AM METAPHYSICIST) Impressions [facility] - 10/10/2023 11:17 AM METAPHYSICIST These images are for Reference purposes only and have not been reviewed by [facility] Radiology. ??There will be no report generated by a [facility] Radiologist. Narrative RAD_PACS[facility] - 10/10/2023 11:17 AM METAPHYSICIST EXAMINATION: ??Images For Reference Purposes Only us Marlene Thornton MD IMG CT PROCEDURES Final R esult [facility] documented in this encounter Visit Diagnoses Not on filedocumented in this encounter Care Teams Obiee Consultant Relationship Specialty Start Date End Date Wolfgang Serrano MD PCP - General Family Medicine 05/05/23 08/02/24 Unknown, Notinfile 03/12/22 [place] [address] [facility] [address] [place] [address] 03/12/22 documented as of this encounter
--- OUTSIDE RECORDS SUMMARY | 2024-10-11 01:57 | XMS_ITS | Encounter Summary ---
Author Organization [facility] Healthcare Address [address] [place] [address] Care Team Providers Care Clinical Rn Name Role Phone Wolfgang Serrano MD Primary Care Provider Unknown, Notinfile Unavailable Unavailable Santino Funk MD Unavailable Chuy Enriquez MD Unavailable Luis Felipe Cedillo MD Unavailable [phone] Marlene Thornton MD Unavailable [phone] Encounter Details Date Type Department Care Team (Latest Contact Info) Description 12/07/2023 12:45 PM REPORT CLERK - 12/07/2023 11:59 PM REPORT CLERK Hospital Encounter [facility] [address] [place], [place] [id number] Emergency, Room R Discharge Disposition: Discharge to home or self care Social History Tobacco Use Types Packs/Day Years Used Date Smoking Tobacco: Former Cigarettes 1 966 - 1966 Smokeless Tobacco: Never Alcohol Use Standard Drinks/Week Comments Yes 1 (1 standard drink = 0.6 oz pur e alcohol) [facility] Utilities Answer Date Recorded In the past 12 months has e electric, gas, oil, or water company threatened to shut off services in your home? No 12/08/2023 Social Connection and Isolat ion Panel [NHANES] Answer Date Recorded In a typical week, how many times do you talk on the phone with family, friends, or neighbors? More than three times a week 12/08/2023 How often do you get togethe r with friends or relatives? More than three times a week 12/08/2023 How often do you attend chur or orthodoxy services? More than 4 times per year 12/08/2023 Do you belong to any clubs o r organizations such as samaritan groups, unions, fraternal or athletic groups, or school groups? No 12/08/2023 How often do you attend meet ings of the clubs or organizations you belong to? Never 12/08/2023 Are you , , di vorced, , never , or living with a partner? 12/08/2023 AUDIT-C Answer Date Recorded Q1: How often do you have a drink containing alc ohol? Monthly or less 06/29/2022 Q2: How many drinks containi ng alcohol do you have on a typical day when you are drinking? 3 or 4 06/29/2022 Q3: How often do you have si x or more drinks on one occasion? Never 06/29/2022 Overall Financial Resource Strain (CARDIA) Answe r Date Recorded How hard is it for you to pa y for the very basics like food, housing, medical care, and heating? Not hard at all 12/08/2023 PHQ-2 Answer Date Recorded PHQ-2 Total Score (If total score is 3 or more points, staff should administer the PHQ-9) 0 12/08/2023 Hunger Vital Sign Answer Date Recorded Within the past 12 months, y ou worried that your food would run out before you got the money to buy more. Never true 12/08/19 24 Within the past 12 months, t he food you bought just didn't last and you didn't have money to get more. Never true 12/08/2023 PRAPARE - Transportation Answer Date Re corded In the past 12 months, has l ack of transportation kept you from medical appointments or from getting medications? No 11/12 In the past 12 months, has l ack of transportation kept you from meetings, work, or from getting things needed for daily living? No 12/08/2023 Housing Stability Vital Sign Answer Keny e Recorded In the last 12 months, was t here a time when you were not able to pay the mortgage or rent on time? No 12/08/2023 In the last 12 months, how many places have you lived? 1 12/08/2023 In the last 12 months, was t here a time when you did not have a steady place to sleep or slept in a assisted (including now)? No 12/08/2023 Personal Safety Answer Date Recorded Getting School Help Needed Denies 10/10 Sex and Gender Information Value Date Recorded Sex Assigned at Not on file Legal Sex Male 3:25 PM REPORT CLERK Gender Identity Not on file Sexual [...] WITH YOU TO SLEEP LAB 11/15/2023 01/07/20 24 furosemide (LASIX) 20 mg tablet Take 1 tablet (20 mg total) by mouth 2 (two) times a day 01/07/20 24 lidocaine (ASPERCREME) 4 % adhesive patch,medicated Place 1 patch on the skin daily for 12 days 12 patch 10/03/2022 06/14/20 24 mirtazapine (REMERON) 7.5 mg tablet TAKE 1 [...] total) by mouth daily 12/01/2023 01/07/20 24 sildenafiL, pulm.hypertension , (REVATIO) 20 mg [...] (Latest Contact Info) Description 10/23/2024 10:00 AM [facility] Hospital Encounter [facility] Operating Room [address] [place] [address] [place] [address] [address] 10/23/2024 10:00 AM REPORT CLERK - 10/23/2024 1:00 PM [facility] Surgery [facility] Operating Room [address] [place] [address] [place] [address] [address] ARTHROPLASTY TOTAL KNEE LEFT Scheduled Procedures Name Priority Associated Diagnoses Date/Ti me ARTHROPLASTY TOTAL KNEE left knee osteoarthritis 10/23/2024 10:00 AM REPORT CLERK ESOPHAGOGASTRODUODENOSCOPY Dysphagia, unspecified type documented as of this encounter Visit Diagnoses Not on filedocumented in this encounter Care Teams Clinical Rn Relationship Specialty Start Date End Date Wolfgang Serrano MD PCP - General Family Medicine 05/05/23 08/02/24 Unknown, Notinfile 03/12/22 [place] [address] [address] [place] [address] 03/12/22 Chuy Enriquez MD [address] [place] [address] Consulting Physician Pulmonary Disease 10/13/23 Luis Felipe Cedillo MD [address], [place] [address] Consulting Physician Gastroenterology 10/13/23 Marlene Thornton MD [address], [place] [address] Surgeon Vascular Surgery 11/10/23 documented as of this encounter
--- OUTSIDE RECORDS SUMMARY | 2024-10-11 01:57 | XMS_ITS | Encounter Summary ---
Author Organization [facility] Healthcare Address [address] [place] [address] Care Team Providers Care Lining Brusher Name Role Phone Mark Ramos MD Primary Care Provider [phone] Unknown, Notinfile Unavailable Unavailable Santino Funk MD Unavailable Morgan Enriquez MD Unavailable Carroll Cedillo MD Unavailable Reason for Visit * Auth/Cert (Routine) Specialty Diagnoses / Procedures Referred By Contac t Referred To Contact Diagnoses Coffee ground emesis GI Bleed Procedures n/a Referral ID Status Reason Start Date Expiration Date Visits Re quested Visits Authorized [id number] 1 1 Encounter Details Date Type Department Care Team (Latest Contact Info) Description 10/10/2023 9:07 PM PHARMACOVIGILANCE SPECIALIST - 10/13/2023 3:23 PM PHARMACOVIGILANCE SPECIALIST Hospital Encounter [facility] [address] [place] [id number] Melvin Garcia MD [facility] [facility] [place] [address] Manuel Carreno MD [address] [facility] [place] [address] Tyrel Fatima MD [address] [place], [place] [id number] Mita Brown MD [address] [place] [address] Jose Martin Gonzalez MD [address] [place], [place] [id number] Upper GI bleed (Primary Dx); Coffee ground emesis; Idiopathic peripheral neuropathy; Acquired hypothyroidism; Acute blood loss anemia; Gastrointestinal hemorrhage with hematemesis; Lung nodule [R91.1]; Nocturnal cough [R05.8]; Hiatal hernia [K44.9] Discharge Disposition: Discharge to home or self [...] slept in a half-way (including now)? No 11/25/2021 Personal Safety Answer Date Recorded Getting School Help Needed Denies 10/10 Sex and Gender Information Value Date Recorded Sex Assigned at Not on file Legal Sex Male 3:25 PM PHARMACOVIGILANCE SPECIALIST Gender Identity Not on file Sexual Orientation Not on file documented as of this encounter Last Filed Vital Signs Vital Sign Reading Time Taken Comments Blood Pressure 109/67 10/13/2023 12:30 PM PHARMACOVIGILANCE SPECIALIST Pulse 89 10/13/2023 12:30 PM PHARMACOVIGILANCE SPECIALIST Temperature 36.8 ??C (98.2 ??F) 10/13/2023 12:[address] Respiratory Rate 18 10/13/2023 12:30 PM PHARMACOVIGILANCE SPECIALIST Oxygen Saturation 99% 10/13/2023 12:30 PM PHARMACOVIGILANCE SPECIALIST Inhaled Oxygen Concentration - - Weight 100.9 kg (222 lb 8 oz) 10/10/2023 9:08 PM PHARMACOVIGILANCE SPECIALIST Height 180.3 cm (5' 11 ) 10/10/2023 9:08 PM PHARMACOVIGILANCE SPECIALIST Body Mass Index 31.03 10/10/2023 9:08 PM PHARMACOVIGILANCE SPECIALIST documented in this encounter Discharge Summaries * Mita Brown MD - 10/13/2023 11:52 AM CST Inpatient Discharge Summary Patient Name - Gunjan Gtz Jr. Patient Age - 78 yrs Patient - [id number] [facility] - [id number] Document Creation Date: 10/13/2023 Admitting Provider, : Jose Martin Gonzalez MD Discharge Provider, : Mita Brown MD Primary Care Physician at Discharge: Mark Ramos MD [phone] Admission Date: 10/10/2023 Discharge Date/time: 10/13/2023 Admission Location: [facility] LOS - LOS: 3 days DETAILS [...] episodes of black emesis. He presented to [facility]. Hecontinued to have episodes of emesis [...] told he would not make it. At [facility], Vitals were stable. Initial labs showed Hgb [...] on CT scan case was discussed with machine rough rounder Dr. Enriquez and patient-advised follow-up with repeat [...] Your Medications These medications were sent to [address] [place] [address] [address] [facility] [address] omeprazole 20 mg capsule Time Spent in [...] Center 11/12/2023 9:00 AM Marlene Thornton MD [facility] 8[address] BA Contact Information for Follow-ups Mark Ramos MD Specialty: Family Medicine Relationship: PCP - General [facility] TRAVIS GIBSON [address] [address] Next Steps: Follow up Comments: Follow up with established provider: 1 week Questions: To provider: MARK RAMOS Kiran Varma, MD Specialty: Pulmonary Disease, Internal Medicine, Critical Care Med Relationship: Consulting Physician [address] [place] [address] [facility] [address] Next Steps: Follow up Comments: Follow up with established provider: in 3 months , repeat CT chest Questions: To provider: MORGAN ENRIQUEZ Barry K., MD Specialty: Gastroenterology, Internal Medicine Relationship: Consulting Physician [address] [place] [address] [facility] [address] Next Steps: Follow up Comments: Follow up with established provider: Other (specify) 8-10 weeks Questions: To provider: CARROLL CEDILLO Please schedule an appointment with the following provider(s): Mark Ramos MD [address] [address] Morgan Enriquez MD [address] [place] [address] [facility] [address] Carroll Cedillo MD [address] [place] [address] [facility] [address] ANCILLARY INFORMATION Other Procedures & Diagnostic Tests: [...] only and have not been reviewed by [facility] Radiology. There will be no report generated by a [facility] Radiologist. Recent Labs: Recent Labs Lab [...] mg/dL 20 28* CREATININE mg/dL 1.25 1.25 PAY-RXZ-ERODPRT mL/min/1.73 m2 59 59 GLUCOSE mg/dL 116 [...] 103 10/26/2022 Implant: Implants Type Not Specified Pressly Knee [employer] 201.050 Nif - [id number] - Implanted (Bilateral) Knee Inventory item: Context app Graft Bone Filler Resrb Inj Accufill 5cc Granules 201.050 Model/Cat number: 201.050 Ferris Wheel Attendant: [employer] Lot number: [id number] Size: 5ml As of 09/22/2018 Status: Implanted Subchondroplasty Knee Kit - Implanted (Bilateral) Knee Model/Cat number: 402.203(201.050) Serial number: [id number] Ferris Wheel Attendant: [employer] Lot number: [id number] As of 09/22/2018 Status: Implanted System Accumix Bone Cement - [id number] - Implanted Inventory item: Context app Accumix Self Contain System Cement Mixing Sterile Disposable 311.100 Model/Cat number: 311.100 Ferris Wheel Attendant: Pressly Knee [employer] Lot number: [id number] As of 09/22/2018 Status: Implanted [employer] [id number] Palacos R+G High Viscosity Cement Bone Gentamicin Arthroplasty - [id number] - Implanted (Right) Knee Inventory item: [employer] Palacos R+G High Viscosity Cement Bone Gentamicin Arthroplasty [id number] Model/Cat number: [id number] Ferris Wheel Attendant: [employer] Lot number: [id number] As of 11/24/2021 Status: Implanted Externautics [id number] Persona Cruciate Retain Knee Right 11 Narrow Component Femoral - [id number] - Implanted (Right) Knee Inventory item: [employer] Component Femoral Knee Porous Cruciate Retaining Narrow Right Persona Trabecular Metal Size 11 [place] Chromium [id number] Model/Cat number: [id number] Ferris Wheel Attendant: [employer] Lot number: [id number] As of 11/24/2021 Status: Implanted [employer] [id number] Persona 35mm Knee Component Patellar All Poly Latex Free - [id number] - Implanted (Right) Knee Inventory item: [employer] Persona 35mm Knee Component Patellar All Poly Latex Free [id number] Model/Cat number: [id number] Ferris Wheel Attendant: [employer] Lot number: [id number] As of 11/24/2021 Status: Implanted [employer] [id number] Persona 14mm 30+ Mm Knee Tibia Taper Extension Stem - [id number] - Implanted (Right) Knee Inventory item: [employer] Persona 14mm 30+ Mm Knee Tibia Taper Extension Stem [id number] Model/Cat number: [id number] Ferris Wheel Attendant: [employer] Lot number: [id number] As of 11/24/2021 Status: Implanted [employer] [id number] Persona Natural Tibia Stem Knee Right 5d G Baseplate Tibial - [id number] - Implanted (Right) Knee Inventory item: [employer] Persona Natural Tibia Stem Knee Right 5d G Baseplate Tibial [id number] Model/Cat number: [id number] Ferris Wheel Attendant: [employer] Lot number: [id number] As of 11/24/2021 Status: Implanted [employer] [id number] Persona 10mm Knee Insert Articular Vivacit-E Sterile - [id number] - Implanted (Right) Knee Inventory item: [employer] Persona 10mm Knee Insert Articular Vivacit-e Sterile [id number] Model/Cat number: [id number] Ferris Wheel Attendant: [employer] Lot number: [id number] As of 11/24/2021 Status: Implanted General Precautions (If Blank, None Found): Isolation Status: No active isolations Nutritional Status and in-house recommendations: Dietary Orders (From admission, onward) Start Ordered 10/11/23 1407 Adult Diet GI Diets; GI Soft Diet effective now Question Answer Comment ([facility]) Diet type GI Diets GI: GI Soft [...] (12+ YRS) 11/14/2020, 12/12/2020 Mita Brown MD MACOVIGILANCE SPECIALIST MACOVIGILANCE SPECIALIST documented in this encounter Medications at [...] - Lab/Radiology/Diagnostic Review: Recent Labs Lab Units 10/12/23 0445 10/10/23 [...] No fluid or electrolyte disorders Discussed with high risk case manager and social sciences department chair regarding the discharge planning. Medical complexity / risk: Current Code Status: Full Code There may be grammatical errors in this note due to use of voice recognition software. Portions of the record may have been created with voice recognition software. Occasional wrong-word or 'eimeb-p-[id number]' substitutions may have occurred due to the inherent limitations of voice recognition software. Read the chart carefully and recognize, using context, where substitutions have occurred. Please contact me directly with questions. Mita Brown MD MACOVIGILANCE SPECIALIST * Taylor Bland, TECHNICAL PROFESSIONAL - 10/12/2023 9:47 AM CST Gastroenterology Progress [...] esophageal ulcer healing check. Patient lives in [place], [place] and can see a GI provider [...] Errol Viveros MD at 10/12/2023 1:38 PM PHARMACOVIGILANCE SPECIALIST MACOVIGILANCE SPECIALIST MACOVIGILANCE SPECIALIST * Tyrel Fatima MD - 10/11/2023 10:27 AM CST General Medicine Daily Progress Background: Patient admitted on 10/10/2023 with chief complaint of anemia - upper gi bleed suspected and transferred from [facility] for gi intervention Today: No reports of vomiting since [place] yesterday. Pt lives at home with . We discussed chest pain - no cardiac hx. Has appointment with pulm - gets dyspnea on exerition but comfortable now Historian: Taylor Allen at bedside as we are discussing stability [...] motor sensory deficits Tyrel Fatima MD, FLIP, [facility] MACOVIGILANCE SPECIALIST documented in this encounter H&P Notes * Manuel Carreno MD - 10/10/2023 11:05 PM CST Images from the original note were not included. History and Physical Date of service: 10/10/23 Primary care provider: Mark Ramos MD Chief Complaint: Chest and abdominal pain Subjective HPI: 78 YO M with H hypothyroidism, cognitive impairment transferred for further evaluation [...] episodes of black emesis. He presented to [facility]. Hecontinued to have episodes of emesis [...] told he would not make it. At [facility], Vitals were stable. Initial labs showed Hgb [...] - (Added by TW Conv) Alzheimer's dementia ([facility]) Asthma Back pain Cataract Closed fracture of left tibial plateau with delayed healing Closed fracture of right tibial plateau with delayed healing Closed nondisplaced osteochondral fracture of left patella with delayed healing Closed osteochondral fracture of patella, right, with delayed healing, subsequent encounter Clotting disorder ([facility]) ([facility]) Complex tear of medial meniscus of left knee as current injury Complex tear of medial meniscus of right knee as current injury Cramps of lower extremity Diverticulitis of colon Easy bruisability Fatigue Frequent urination Gastroesophageal reflux disease GERD Hypothyroidism Incontinence of urine Muscle weakness Osteoarthritis Osteoarthritis Peptic ulcer Peptic ulcer disease Seizures ([facility]) 1997 last seizure in 1997 SOB (shortness of breath) on exertion Subchondral insufficiency fracture of condyle of left femur ([facility]) ([facility]) Vertigo Vision changes Visual disturbance hx of [...] High Manuel Carreno MD 10/10/2023 11:05 PM MACOVIGILANCE SPECIALIST documented in this encounter Procedure Notes * Jose Martin Gonzalez MD - 10/11/2023 9:59 AM CSTAssociated Order(s): EGD ENDOSCOPY LAB Patient Name: Gunjan Gtz Procedure Date: 10/11/2023 9:59 AM Admit Type: Inpatient Room: [facility] 3 Date of : 1945 Instrument Name: ROSA [id number] Gender: Male Note Status: Superior Court Justice Override Procedure: Upper GI endoscopy Indications: Epigastric [...] physician, the nurse, the anesthesiologist and the substation designer in the pre-procedure area in the endoscopy [...] 10/11/2023 9:59 AM Scope In: Scope Out: MACOVIGILANCE SPECIALIST MACOVIGILANCE SPECIALIST documented in this encounter Consult Notes [...] reason above. This patient was transferred to [facility] from [facility] on 10/10 after he had [...] or night sweats Hospitalization for wheezing, at [facility], noted GI issues as detailed above Minimal [...] delayed healing, subsequent encounter Clotting disorder (CMS/HCC) ([facility]) Complex tear of medial meniscus of left knee as current injury Complex tear of medial meniscus of right knee as current injury Cramps of lower extremity Diverticulitis of colon Easy bruisability Fatigue Frequent urination Gastroesophageal reflux disease GERD Hypothyroidism Incontinence of urine Muscle weakness Osteoarthritis Osteoarthritis Peptic ulcer Peptic ulcer disease Seizures ([facility]) 1997 last seizure in 1997 SOB (shortness of breath) on exertion Subchondral insufficiency fracture of condyle of left femur (CMS/HCC) ([facility]) Vertigo Vision changes Visual disturbance hx of [...] reviewed the pertinent imaging from this hospitalization. MACOVIGILANCE SPECIALIST * Taylor Bland, TECHNICAL PROFESSIONAL - 10/11/2023 9:10 AM CSTAssociated Order(s): IP [...] reason above. This patient was transferred to [facility] from [facility] on 10/10 after he had [...] - (Added by TW Conv) Alzheimer's dementia ([facility]) Asthma Back pain Cataract Closed fracture of left tibial plateau with delayed healing Closed fracture of right tibial plateau with delayed healing Closed nondisplaced osteochondral fracture of left patella with delayed healing Closed osteochondral fracture of patella, right, with delayed healing, subsequent encounter Clotting disorder ([facility]) ([facility]) Complex tear of medial meniscus of left knee as current injury Complex tear of medial meniscus of right knee as current injury Cramps of lower extremity Diverticulitis of colon Easy bruisability Fatigue Frequent urination Gastroesophageal reflux disease GERD Hypothyroidism Incontinence of urine Muscle weakness Osteoarthritis Osteoarthritis Peptic ulcer Peptic ulcer disease Seizures ([facility]) 1997 last seizure in 1997 SOB (shortness of breath) on exertion Subchondral insufficiency fracture of condyle of left femur ([facility]) ([facility]) Vertigo Vision changes Visual disturbance hx of [...] every 4 (four) hours as needed 02/03/23 Garett Shah MD capsaicin 0.1 % cream Apply to your feet three to four times a day. 12/03/22 Nayan Mahajan II, MD cholecalciferol (VITAMIN D-3) 2000 unit capsule Take 1 capsule (2,000 Units total) by mouth daily Patient taking differently: Take 1 capsule (2,000 Units total) by mouth nightly 12/31/19 Ruth Coffey MD diclofenac DR (VOLTAREN) 50 mg EC [...] by mouth nightly 1/2 to 1 tablet 08/15/21 10/11/23 Garett Shah [...] FiO2 (%) -- Most Recent : Vitals: 10/10/238 10/10/23211510/11/23 0558 BP: 126/86 130/76 BP Location: Right [...] only and have not been reviewed by [facility] Radiology. There will be no report generated by a [facility] Radiologist. Cosigned by Jose Martin Gonzalez MD at 11/01/2023 4:56 PM PHARMACOVIGILANCE SPECIALIST MACOVIGILANCE SPECIALIST MACOVIGILANCE SPECIALIST documented in this encounter Miscellaneous Notes * Plan of Care - Tessy Woodruff RN - 10/13/2023 4:20 AM PHARMACOVIGILANCE SPECIALIST Goals: Problem: Health Behavior: Goal: Understanding [...] precautions. Call light within reach, care ongoing. MACOVIGILANCE SPECIALIST * Plan of Care - Marva Vera RN - 10/12/2023 7:52 PM CST Goals: Clinical Goals for the Shift: VSS, up with assist, pain controlled, ? d/c today Summary: VSS, up to ambulate in the luis today, pain controlled, ? D/c tommorow MACOVIGILANCE SPECIALIST * Plan of Care - Lulu [...] Goal: Pain level will decrease Outcome: Ongoing MACOVIGILANCE SPECIALIST * Plan of Care - Gladis [...] Pt slept with call light in reach. MACOVIGILANCE SPECIALIST documented in this encounter Plan of Treatment Upcoming Encounters Date Type Department Care Team (Latest Contact Info) Description 10/23/2024 10:00 AM PHARMACOVIGILANCE SPECIALIST Hospital Encounter [facility] Operating Room [address] [place] [address] [place] [address] [address] 10/23/2024 10:00 AM PHARMACOVIGILANCE SPECIALIST - 10/23/2024 1:00 PM PHARMACOVIGILANCE SPECIALIST Surgery [facility] Operating Room [address] [place] [address] [place] [address] [address] ARTHROPLASTY TOTAL KNEE LEFT Scheduled Procedures Name Priority Associated Diagnoses Date/Ti me ARTHROPLASTY TOTAL KNEE left knee osteoarthritis 10/23/2024 10:00 AM PHARMACOVIGILANCE SPECIALIST ESOPHAGOGASTRODUODENOSCOPY Dysphagia, unspecified type documented as of this encounter Procedures Procedure Name Priority Date/Time Associated Diagnosis Comments DIFFERENTIAL AUTO Routine 10/13/2023 6:04 AM PHARMACOVIGILANCE SPECIALIST CBC WITH AUTO DIFFERENTIAL Routine 10/13 6:04 AM PHARMACOVIGILANCE SPECIALIST EGFR Routine 10/12/2023 4:45 AM PHARMACOVIGILANCE SPECIALIST DIFFERENTIAL AUTO Routine 10/12/2023 4:45 AM PHARMACOVIGILANCE SPECIALIST CBC WITH AUTO DIFFERENTIAL Routine 10/12 4:45 AM PHARMACOVIGILANCE SPECIALIST BASIC METABOLIC PANEL Routine 10/12/2023 4:45 AM PHARMACOVIGILANCE SPECIALIST THYROID FUNCTION CASCADE Timed 3:21 PM PHARMACOVIGILANCE SPECIALIST HEMOGLOBIN AND HEMATOCRIT Timed 2023 3:21 PM PHARMACOVIGILANCE SPECIALIST T4, FREE Timed 10/11/2023 3:21 PM PHARMACOVIGILANCE SPECIALIST FOLATE Timed 10/11/2023 3:21 PM PHARMACOVIGILANCE SPECIALIST VITAMIN B12 Timed 10/11/2023 3:21 PM PHARMACOVIGILANCE SPECIALIST SURGICAL PATHOLOGY Routine 10/11/2023 11:15 AM PHARMACOVIGILANCE SPECIALIST Gastrointestina l hemorrhage with hematemesis ESOPHAGOGASTRODUODENOSCOPY BIOPSY 10/11/2023 10:27 AM PHARMACOVIGILANCE SPECIALIST hematemesis CT CHEST ABDOMEN PELVIS W CONTRAST ED Urgent/IP Urgent 10/11/2023 10:12 AM PHARMACOVIGILANCE SPECIALIST EGD 10/11/2023 9:59 AM PHARMACOVIGILANCE SPECIALIST TROPONIN T HIGH-SENSITIVITY Routine 10/2023 9:20 AM PHARMACOVIGILANCE SPECIALIST CRP, HIGH SENSITIVITY Routine 10/11/2023 9:20 AM PHARMACOVIGILANCE SPECIALIST DIFFERENTIAL AUTO Routine 10/11/2023 5:56 AM PHARMACOVIGILANCE SPECIALIST CBC WITH AUTO DIFFERENTIAL Routine 10/11 5:56 AM PHARMACOVIGILANCE SPECIALIST EGFR STAT 10/10/2023 11:32 PM PHARMACOVIGILANCE SPECIALIST DIFFERENTIAL AUTO STAT 10/10/2023 11:32 PM PHARMACOVIGILANCE SPECIALIST CBC WITH AUTO DIFFERENTIAL STAT 10/10 11:32 PM PHARMACOVIGILANCE SPECIALIST TYPE AND SCREEN Timed 10/10/2023 11:32 PM PHARMACOVIGILANCE SPECIALIST BASIC METABOLIC PANEL STAT 10/10/2023 11:32 PM PHARMACOVIGILANCE SPECIALIST documented in this encounter Results * Differential, auto (10/13/2023 6:04 AM PHARMACOVIGILANCE SPECIALIST) Neutrophil abs 3.8 1.5 - 6.5 K/cumm [facility] Imm gran abs 0.1 0.0 - 0.1 K/cumm [facility] Lymphocyte abs 2.9 0.8 - 3.3 K/cumm [facility] Monocyte abs 0.8 0.2 - 0.8 K/cumm [facility] Eosinophil abs 0.3 0.0 - 0.5 K/cumm [facility] Basophil abs 0.1 0.0 - 0.1 K/cumm [facility] Neutrophil pct 47.7 % [facility] Comment: Interpretive Data Percent cell count reference ranges are not reported, since discordance with absolute values may lead to misinterpretation of CBC data. Current Interpretive Data was last revised on 2018. Imm gran pct 0.8 % [facility] Comment: Interpretive Data Percent cell count reference ranges are not reported, since discordance with absolute values may lead to misinterpretation of CBC data. Current Interpretive Data was last revised on 2018. Lymphocyte pct 37.0 % [facility] Comment: Interpretive Data Percent cell count reference ranges are not reported, since discordance with absolute values may lead to misinterpretation of CBC data. Current Interpretive Data was last revised on 2018. Monocyte pct 10.1 % [facility] Comment: Interpretive Data Percent cell count reference ranges are not reported, since discordance with absolute values may lead to misinterpretation of CBC data. Current Interpretive Data was last revised on 2018. Eosinophil pct 3.5 % [facility] Comment: Interpretive Data Percent cell count reference ranges are not reported, since discordance with absolute values may lead to misinterpretation of CBC data. Current Interpretive Data was last revised on 2018. Basophil pct 0.9 % [facility] Comment: Interpretive Data Percent cell count reference ranges are not reported, since discordance with absolute values may lead to misinterpretation of CBC data. Current Interpretive Data was last revised on 2018. Blood 10/13/2023 6:04 AM PHARMACOVIGILANCE SPECIALIST 10/13/2023 6:19 AM PHARMACOVIGILANCE SPECIALIST us Mita Brown MD LAB BLOOD ORDERABLES Final Result [facility] [address] Department [place] [address] * (ABNORMAL) CBC with auto differential (10/13/2023 6:04 AM PHARMACOVIGILANCE SPECIALIST) WBC 7.9 3.8 - 9.9 K/cumm [facility] Hgb 11.7(L) 13.0 - 17.5 g/dL [facility] Hct 35.2(L) 38.9 - 50.3 % [facility] Plt 242 150 - 400 K/cumm [facility] MPV 10.5 9.1 - 12.3 fL [facility] RBC 3.41(L) 4.30 - 5.80 M/cumm [facility] MCV 103.2(H) 81.3 - 96.4 fL [facility] MCH 34.3(H) 27.1 - 33.3 pg [facility] MCHC 33.2 32.3 - 35.7 g/dL [facility] RDW CV 14.2 11.1 - 14.9 % [facility] RDW SD 53.7(H) 35.7 - 48.1 fL [facility] NRBC abs 0.00 0.00 - 0.01 K/cumm [facility] Blood 10/13/2023 6:04 AM PHARMACOVIGILANCE SPECIALIST 10/13/2023 6:19 AM PHARMACOVIGILANCE SPECIALIST us Mita Brown MD LAB BLOOD ORDERABLES Final Result [facility] [address] Department [place] [address] * eGFR (10/12/2023 4:45 AM PHARMACOVIGILANCE SPECIALIST) eGFR 59 mL/min/1. 73 m2 [facility] Comment: Interpretive Data Reference Interval Normal ?>/= [...] last reviewed 2021. Blood 10/12/2023 4:45 AM PHARMACOVIGILANCE SPECIALIST 10/12/2023 4:54 AM PHARMACOVIGILANCE SPECIALIST us Tyrel Fatima MD LAB BLOOD ORDERABLES Fi nal Result [facility] [address] Department [place] [address] * (ABNORMAL) Differential, auto (10/12/2023 4:45 AM PHARMACOVIGILANCE SPECIALIST) Neutrophil abs 5.9 1.5 - 6.5 K/cumm [facility] Imm gran abs 0.0 0.0 - 0.1 K/cumm [facility] Lymphocyte abs 2.6 0.8 - 3.3 K/cumm [facility] Monocyte abs 1.0(H) 0.2 - 0.8 [facility] Eosinophil abs 0.2 0.0 - 0.5 [facility] Basophil abs 0.1 0.0 - 0.1 [facility] Neutrophil pct 60.4 % [facility] Comment: Interpretive Data Percent cell count reference ranges are not reported, since discordance with absolute values may lead to misinterpretation of CBC data. Current Interpretive Data was last revised on 2018. Imm gran pct 0.3 % [facility] Comment: Interpretive Data Percent cell count reference ranges are not reported, since discordance with absolute values may lead to misinterpretation of CBC data. Current Interpretive Data was last revised on 2018. Lymphocyte pct 26.8 % [facility] Comment: Interpretive Data Percent cell count reference ranges are not reported, since discordance with absolute values may lead to misinterpretation of CBC data. Current Interpretive Data was last revised on 2018. Monocyte pct 10.0 % [facility] Comment: Interpretive Data Percent cell count reference ranges are not reported, since discordance with absolute values may lead to misinterpretation of CBC data. Current Interpretive Data was last revised on 2018. Eosinophil pct 2.0 % [facility] Comment: Interpretive Data Percent cell count reference ranges are not reported, since discordance with absolute values may lead to misinterpretation of CBC data. Current Interpretive Data was last revised on 2018. Basophil pct 0.5 % [facility] Comment: Interpretive Data Percent cell count reference ranges are not reported, since discordance with absolute values may lead to misinterpretation of CBC data. Current Interpretive Data was last revised on 2018. Blood 10/12/2023 4:45 AM PHARMACOVIGILANCE SPECIALIST 10/12/2023 4:54 AM PHARMACOVIGILANCE SPECIALIST Tyrel Fatima MD LAB BLOOD ORDERABLES Fi nal Result Performing Organization Address [facility]/ZIP Co de Phone Number [facility] [address] [place] [address] * Basic metabolic panel (10/12/2023 4:45 AM PHARMACOVIGILANCE SPECIALIST) [facility] Sodium 139 135 - 145 mmol/L [facility] Potassium, pl 4.4 3.3 - 4.9 mmol/L [facility] Chloride 107 97 - 110 mmol/L [facility] CO2 24 22 - 32 mmol/L [facility] Anion gap 8 2 - 15 mmol/L [facility] BUN 20 6 - 25 mg/dL [facility] Creatinine 1.25 0.80 - 1.30 mg/dL [facility] Glucose 116 70 - 199 mg/dL [facility] Comment: Interpretive Data Fasting glucose >/= 126 [...] 2022. Calcium 8.6 8.5 - 10.3 mg/dL [facility] Blood 10/12/2023 4:45 AM PHARMACOVIGILANCE SPECIALIST 10/12/2023 4:54 AM PHARMACOVIGILANCE SPECIALIST Tyrel Fatima MD LAB BLOOD ORDERABLES Fi nal Result Performing Organization Address [facility] Co de Phone Number [facility] [address] [place] [address] * (ABNORMAL) CBC with auto differential (10/12/2023 4:45 AM PHARMACOVIGILANCE SPECIALIST) [facility] WBC 9.8 3.8 - 9.9 [facility] Hgb 11.3(L) 13.0 - 17.5 g/dL [facility] Hct 34.7(L) 38.9 - 50.3 % [facility] Plt 233 150 - 400 K/[facility] MPV 10.9 9.1 - 12.3 fL [facility] RBC 3.35(L) 4.30 - 5.80 M/[facility] MCV 103.6(H) 81.3 - 96.4 fL [facility] MCH 33.7(H) 27.1 - 33.3 pg [facility] MCHC 32.6 32.3 - 35.7 g/dL [facility] RDW CV 14.0 11.1 - 14.9 % [facility] RDW SD 53.1(H) 35.7 - 48.1 fL [facility] NRBC abs 0.00 0.00 - 0.01 [facility] Blood 10/12/2023 4:45 AM PHARMACOVIGILANCE SPECIALIST 10/12/2023 4:54 AM PHARMACOVIGILANCE SPECIALIST us Tyrel Fatima MD LAB BLOOD ORDERABLES Fi nal Result [facility] [address] [place] [address] * T4, free (10/11/2023 3:21 PM PHARMACOVIGILANCE SPECIALIST) [facility] Free T4 1.39 0.90 - 1.70 ng/dL [facility] Blood 10/11/2023 3:21 PM PHARMACOVIGILANCE SPECIALIST 10/11/2023 3:43 PM PHARMACOVIGILANCE SPECIALIST Narrative [facility] - 10/11/2023 4:57 PM PHARMACOVIGILANCE SPECIALIST This test was reflexed from a TSH result. us Tyrel Fatima MD LAB BLOOD ORDERABLES Fi nal Result Performing Organization Address [facility] Co de Phone Number [facility] [address] [facility] [place] [address] * (ABNORMAL) TSH reflex to free T4 (10/11/2023 3:21 PM PHARMACOVIGILANCE SPECIALIST) TSH 7.57(H) 0.30 - 4.20 mcIUnit/mL [facility] Blood 10/11/2023 3:21 PM PHARMACOVIGILANCE SPECIALIST 10/11/2023 3:43 PM PHARMACOVIGILANCE SPECIALIST Result [facility] Tyrel Fatima MD LAB BLOOD ORDERABLES Ed ited Result - Final Performing Organization Address [facility] Co de Phone Number [facility] [address] [facility] [place] [address] * (ABNORMAL) Vitamin B12 (10/11/2023 3:21 PM PHARMACOVIGILANCE SPECIALIST) Vitamin B12 1,995(H) 230 - 1,250 pg/mL [facility] Blood 10/11/2023 3:21 PM PHARMACOVIGILANCE SPECIALIST 10/11/2023 3:43 PM PHARMACOVIGILANCE SPECIALIST Result [facility] Tyrel Fatima MD LAB BLOOD ORDERABLES Ed ited Result - Final Performing Organization Address [facility]/ZIP Co de Phone Number [facility] [address] [facility] [place] [address] * Folate (10/11/2023 3:21 PM PHARMACOVIGILANCE SPECIALIST) Folic acid 17.4 >=5.0 ng/mL [facility] Blood 10/11/2023 3:21 PM PHARMACOVIGILANCE SPECIALIST 10/11/2023 3:43 PM PHARMACOVIGILANCE SPECIALIST Result [facility] Tyrel Fatima MD LAB BLOOD ORDERABLES Fi nal Result Performing Organization Address City/[facility] Co de Phone Number [facility] [address] [place] [address] * Hemoglobin and hematocrit (10/11/2023 3:21 PM PHARMACOVIGILANCE SPECIALIST) Hgb 13.3 13.0 - 17.5 g/dL [facility] Hct 41.4 38.9 - 50.3 % [facility] Blood 10/11/2023 3:21 PM PHARMACOVIGILANCE SPECIALIST 10/11/2023 3:43 PM PHARMACOVIGILANCE SPECIALIST us Tyrel Fatima MD LAB BLOOD ORDERABLES Fi nal Result [facility] [address] [place] [address] * Surgical pathology (10/11/2023 11:15 AM PHARMACOVIGILANCE SPECIALIST) Tissue (Esophageal biopsy) 10/11/2023 11:10 AM PHARMACOVIGILANCE SPECIALIST Narrative PATHOLOGY [facility] - 10/13/2023 10:04 AM PHARMACOVIGILANCE SPECIALIST [place] [id number] [place], [place] ??[address] Tele: ?? Any Arriaza MD - Instructional Media Services Technician Note to Patients: This report may contain [...] the details. SURGICAL PATHOLOGY REPORT Patient Name: ??EMILIE GUNJAN JR. Address: ??[address] [place] [address] ??[id number] Gender: ??M : ??1945 (Age: 78) Service: ??Medical Location: ??[id number], ?? Hospital #: ??[id number] Patient Type: ??[facility] Accession #: ? [id number] Taken: ? [...] inclusions are identified. Clerical Data Follows A; 50320 REPORT IMAGES AND/OR SCANNED DOCUMENTS ONLY VIEWABLE IN PDF FORMAT The immunohistochemical test(s) cited in this report, if any, was developed and its performance characteristics determined by [facility] Pathology Department. ??It has not been cleared or approved by the U.S. Food and Drug Administration. ??The FDA has determined that such clearance or approval is not necessary. ??This test is used for clinical purposes. ??It should not be regarded as investigational or for research. ??[facility] is certified under the Clinical Laboratory [...] MD LAB PATHOLOGY ORDERABLES Final Result PATHOLOGY [facility] Laboratory [address] [address] * CT Chest Abdomen Pelvis W Contrast (10/11/2023 10:12 AM PHARMACOVIGILANCE SPECIALIST) Anatomical Region Laterality Modality Body N/A Computed Tomogra phy 10/11/2023 11:0 3 AM PHARMACOVIGILANCE SPECIALIST Impressions 10/11/2023 11:03 AM PHARMACOVIGILANCE SPECIALIST A 12 x 12 mm pulmonary nodule in the lateral aspect of the right costophrenic sulcus, new since 2019, is suspicious for primary lung malignancy. Electronically signed by: Jayshree Giles MD, Ph.D Narrative 10/11/2023 11:03 AM PHARMACOVIGILANCE SPECIALIST EXAMINATION: ??Computed tomography of chest/abdomen/pelvis with [...] Jayshree Giles MD, Ph.D Taylor Bland NP IMG CT PROCEDURES Final Result * EGD (10/11/2023 9:59 AM PHARMACOVIGILANCE SPECIALIST) Anatomical Region Laterality Modality Other Narrative Procedure Note Jose Martin Gonzalez MD - 10/11/2023 9:59 AM CST ENDOSCOPY LAB Patient Name: Gunjan Gtz Procedure Date: 10/11/2023 9:59 AM Admit Type: Inpatient Room: [facility] Date of : 1945 Instrument Name: [id number] Gender: Male Note Status: Superior [employer] Justice Override Procedure: Upper GI endoscopy Indications: Epigastric [...] physician, the nurse, the anesthesiologist and the substation designer in the pre-procedure area in the endoscopy [...] 10/11/2023 9:59 AM Scope In: Scope Out: Jose Martin Gonzalez MD ENDOSCOPY PROCEDURES Edited Res ult - Final * CRP (cardiac risk) (10/11/2023 9:20 AM PHARMACOVIGILANCE SPECIALIST) hsCRP 5.73 mg/L [facility] Comment: Interpretive data Adult only - values [...] revised on 2018. Blood 10/11/2023 9:20 AM PHARMACOVIGILANCE SPECIALIST 10/11/2023 9:24 AM PHARMACOVIGILANCE SPECIALIST us Taylor Bland NP LAB BLOOD ORDERABLES Final Res ult [facility] [address] [place] [address] * Troponin T high-sensitivity (10/11/2023 9:20 AM PHARMACOVIGILANCE SPECIALIST) Trop T hs 18 <=22 ng/L [facility] Comment: Interpretive Data For further hscTnT resources including the diagnostic algorithm and an aid in interpretation, copy and paste this link: [email or web address].testcatalog.org/show/hsTrop Current Interpretive Data last revised 2020. Blood 10/11/2023 9:20 AM PHARMACOVIGILANCE SPECIALIST 10/11/2023 9:24 AM PHARMACOVIGILANCE SPECIALIST us Taylor Bland TECHNICAL PROFESSIONAL LAB BLOOD ORDERABLES Final Res ult [facility] [address] [place] [address] * Differential, auto (10/11/2023 5:56 AM PHARMACOVIGILANCE SPECIALIST) Neutrophil abs 4.4 1.5 - 6.5 [facility] Imm gran abs 0.0 0.0 - 0.1 [facility] Lymphocyte abs 2.2 0.8 - 3.3 [facility] Monocyte abs 0.8 0.2 - 0.8 [facility] Eosinophil abs 0.3 0.0 - 0.5 [facility] Basophil abs 0.1 0.0 - 0.1 [facility] Neutrophil pct 56.5 % [facility] Comment: Interpretive Data Percent cell count reference ranges are not reported, since discordance with absolute values may lead to misinterpretation of CBC data. Current Interpretive Data was last revised on 2018. Imm gran pct 0.4 % [facility] Comment: Interpretive Data Percent cell count reference ranges are not reported, since discordance with absolute values may lead to misinterpretation of CBC data. Current Interpretive Data was last revised on 2018. Lymphocyte pct 28.4 % [facility] Comment: Interpretive Data Percent cell count reference ranges are not reported, since discordance with absolute values may lead to misinterpretation of CBC data. Current Interpretive Data was last revised on 2018. Monocyte pct 10.5 % [facility] Comment: Interpretive Data Percent cell count reference ranges are not reported, since discordance with absolute values may lead to misinterpretation of CBC data. Current Interpretive Data was last revised on 2018. Eosinophil pct 3.3 % [facility] Comment: Interpretive Data Percent cell count reference ranges are not reported, since discordance with absolute values may lead to misinterpretation of CBC data. Current Interpretive Data was last revised on 2018. Basophil pct 0.9 % [facility] Comment: Interpretive Data Percent cell count reference ranges are not reported, since discordance with absolute values may lead to misinterpretation of CBC data. Current Interpretive Data was last revised on 2018. Blood 10/11/2023 5:56 AM PHARMACOVIGILANCE SPECIALIST 10/11/2023 6:38 AM PHARMACOVIGILANCE SPECIALIST us Melvin Garcia MD LAB BLOOD ORDERABLES Final Res ult [facility] [address] [place] [address] * (ABNORMAL) CBC with auto differential (10/11/2023 5:56 AM PHARMACOVIGILANCE SPECIALIST) WBC 7.8 3.8 - 9.9 [facility] Hgb 11.9(L) 13.0 - 17.5 g/dL [facility] Hct 35.9(L) 38.9 - 50.3 % [facility] Plt 241 150 - 400 K/[facility] MPV 11.4 9.1 - 12.3 fL [facility] RBC 3.47(L) 4.30 - 5.80 M/[facility] MCV 103.5(H) 81.3 - 96.4 fL [facility] MCH 34.3(H) 27.1 - 33.3 pg [facility] MCHC 33.1 32.3 - 35.7 g/dL [facility] RDW CV 14.4 11.1 - 14.9 % [facility] RDW SD 55.2(H) 35.7 - 48.1 fL [facility] NRBC abs 0.00 0.00 - 0.01 [facility] Blood 10/11/2023 5:56 AM PHARMACOVIGILANCE SPECIALIST 10/11/2023 6:38 AM PHARMACOVIGILANCE SPECIALIST us Melvin Garcia MD LAB BLOOD ORDERABLES Final Res ult Performing Organization Address [facility]/ZIP Co de Phone Number [facility] [address] [place] [address] * eGFR (10/10/2023 11:32 PM PHARMACOVIGILANCE SPECIALIST) eGFR 59 mL/min/1. 73 m2 [facility] Comment: Interpretive Data Reference Interval Normal ?>/= [...] reviewed 2021. Blood 10/10/2023 11:3 2 PM PHARMACOVIGILANCE SPECIALIST 10/10/2023 11:41 PM PHARMACOVIGILANCE SPECIALIST us Melvin Garcia MD LAB BLOOD ORDERABLES Final Res ult Performing Organization Address [facility]/ZIP Co de Phone Number [facility] [address] [place], [place] [id number] * (ABNORMAL) Differential, auto (10/10/2023 11:32 PM PHARMACOVIGILANCE SPECIALIST) Neutrophil abs 5.0 1.5 - 6.5 [facility] Imm gran abs 0.1 0.0 - 0.1 [facility] Lymphocyte abs 2.7 0.8 - 3.3 [facility] Monocyte abs 0.9(H) 0.2 - 0.8 [facility] Eosinophil abs 0.4 0.0 - 0.5 [facility] Basophil abs 0.1 0.0 - 0.1 [facility] Neutrophil pct 54.9 % [facility] Comment: Interpretive Data Percent cell count reference ranges are not reported, since discordance with absolute values may lead to misinterpretation of CBC data. Current Interpretive Data was last revised on 2018. Imm gran pct 0.5 % [facility] Comment: Interpretive Data Percent cell count reference ranges are not reported, since discordance with absolute values may lead to misinterpretation of CBC data. Current Interpretive Data was last revised on 2018. Lymphocyte pct 29.3 % [facility] Comment: Interpretive Data Percent cell count reference ranges are not reported, since discordance with absolute values may lead to misinterpretation of CBC data. Current Interpretive Data was last revised on 2018. Monocyte pct 10.2 % [facility] Comment: Interpretive Data Percent cell count reference ranges are not reported, since discordance with absolute values may lead to misinterpretation of CBC data. Current Interpretive Data was last revised on 2018. Eosinophil pct 4.3 % [facility] Comment: Interpretive Data Percent cell count reference ranges are not reported, since discordance with absolute values may lead to misinterpretation of CBC data. Current Interpretive Data was last revised on 2018. Basophil pct 0.8 % [facility] Comment: Interpretive Data Percent cell count reference ranges are not reported, since discordance with absolute values may lead to misinterpretation of CBC data. Current Interpretive Data was last revised on 2018. Blood 10/10/2023 11:3 2 PM PHARMACOVIGILANCE SPECIALIST 10/10/2023 11:41 PM PHARMACOVIGILANCE SPECIALIST us Melvin Garcia MD LAB BLOOD ORDERABLES Final Res ult Performing Organization Address City/[facility]/ZIP Co de Phone Number [facility] [address] [place] [address] * Type and screen (10/10/2023 11:32 PM PHARMACOVIGILANCE SPECIALIST) [facility] Sarah, indirect Negative ABO Rh O Negative [facility] Blood 10/10/2023 11:3 2 PM PHARMACOVIGILANCE SPECIALIST 10/10/2023 11:36 PM PHARMACOVIGILANCE SPECIALIST Narrative [facility] - 10/11/2023 12:38 AM PHARMACOVIGILANCE SPECIALIST Has the patient had Daratumumab or Isatuximab in the past 6 months?->Unknown us Manuel Carreno MD LAB BLOOD BANK TEST ORDERAB LES Final Result Performing Organization Address [facility] Co de Phone Number [facility] [address] [place] [address] * (ABNORMAL) Basic metabolic panel (10/10/2023 11:32 PM PHARMACOVIGILANCE SPECIALIST) [facility] Sodium 139 135 - 145 mmol/L [facility] Potassium, pl 4.4 3.3 - 4.9 mmol/L [facility] Comment:Hemolyzed; potassium value may be falsely elevated by as much as 0.3 - 0.5 mmol/L. Suggest redraw and reanalysis Chloride 104 97 - 110 mmol/L [facility] CO2 25 22 - 32 mmol/L [facility] Anion gap 10 2 - 15 mmol/L [facility] BUN 28(H) 6 - 25 mg/dL [facility] Creatinine 1.25 0.80 - 1.30 mg/dL [facility] Glucose 109 70 - 199 mg/dL [facility] Comment: Interpretive Data Fasting glucose >/= 126 [...] 2022. Calcium 9.1 8.5 - 10.3 mg/dL [facility] Blood 10/10/2023 11:3 2 PM PHARMACOVIGILANCE SPECIALIST 10/10/2023 11:41 PM PHARMACOVIGILANCE SPECIALIST us Melvin Garcia MD LAB BLOOD ORDERABLES Final Res ult [facility] [address] [place] [address] * (ABNORMAL) CBC with auto differential (10/10/2023 11:32 PM PHARMACOVIGILANCE SPECIALIST) WBC 9.1 3.8 - 9.9 [facility] Hgb 12.9(L) 13.0 - 17.5 g/dL [facility] Hct 39.6 38.9 - 50.3 % [facility] Plt 250 150 - 400 K/c[facility] MPV 11.3 9.1 - 12.3 fL [facility] RBC 3.78(L) 4.30 - 5.80 M/cumm [facility] MCV 104.8(H) 81.3 - 96.4 fL [facility] MCH 34.1(H) 27.1 - 33.3 pg [facility] MCHC 32.6 32.3 - 35.7 g/dL [facility] RDW CV 14.5 11.1 - 14.9 % [facility] RDW SD 55.4(H) 35.7 - 48.1 fL [facility] NRBC abs 0.00 0.00 - 0.01 [facility] Blood 10/10/2023 11:3 2 PM PHARMACOVIGILANCE SPECIALIST 10/10/2023 11:41 PM PHARMACOVIGILANCE SPECIALIST us Thishara Merza MD LAB BLOOD ORDERABLES Final Res ult [facility] [address] Department [place] [address] documented in this encounter Visit Diagnoses Diagnosis Upper GI bleed- Primary Unspecified, hemorrhage of gastrointestinal tract Upper GI bleed Unspecified, hemorrhage of gastrointestinal tract Coffee ground emesis Hematemesis Idiopathic peripheral neuropathy Unspecified hereditary and idiopathic peripheral neuropathy Acquired hypothyroidism Unspecified hypothyroidism Acute blood loss anemia Acute posthemorrhagic anemia Gastrointestinal hemorrhage with hematemesis Lung nodule [R91.1] Other diseases of lung, not elsewhere classified Nocturnal cough [R05.8] Hiatal hernia [K44.9] Diaphragmatic hernia without mention of obstruction or gangrene Coffee ground emesis Hematemesis Idiopathic peripheral neuropathy Unspecified hereditary and idiopathic peripheral neuropathy Acquired hypothyroidism Unspecified hypothyroidism Acute blood loss anemia Acute posthemorrhagic anemia documented in this encounter Admitting Diagnoses Diagnosis Coffee [...] Indications: Fever, PainIndications:Fever,Pain Given 10/13/2023 7:51 AM PHARMACOVIGILANCE SPECIALIST 650 mg Given 10/12/2023 2:21 PM PHARMACOVIGILANCE SPECIALIST 650 mg albuterol HFA (PROVENTIL HFA,VENTOLIN HFA,PROAIR HFA) 90 mcg/actuation inhaler 2 puff 2 puff, inhalation, Every 4 hours PRN (respiratory care assistant), wheezing, shortness of breath, Starting on Wed10/11/23 [...] Wed10/11/23 at 2100 Given 10/12/2023 8:50 PM PHARMACOVIGILANCE SPECIALIST 10 mg Given 10/11/2023 9:02 PM PHARMACOVIGILANCE SPECIALIST 10 mg famotidine (PEPCID) injection 10 mg 10 mg, intravenous, Administer over 2 Minutes, Once, On Wed10/11/23 at 0030, For 1 dose Given 10/10/2023 11:59 PM PHARMACOVIGILANCE SPECIALIST 10 mg gabapentin (NEURONTIN) capsule 200 mg 200 mg, oral, 3 times daily, First dose on Wed10/11/23 at 0900 Given 10/13/2023 7:51 AM PHARMACOVIGILANCE SPECIALIST 200 mg Given 10/12/2023 8:50 PM PHARMACOVIGILANCE SPECIALIST 200 mg Given 10/12/2023 5:03 PM PHARMACOVIGILANCE SPECIALIST 200 mg ioversoL (OPTIRAY 350) syringe 75 mL 75 mL, intravenous, Once in imaging, contrast, Starting on Wed10/11/23 at 0958, For 1 dose Contrast Given 10/11/2023 10:05 AM PHARMACOVIGILANCE SPECIALIST 69 mL Lactated Ringer's (LR) infusion 100 mL/hr, intravenous, Continuous, Starting on Wed10/11/23 at 0345, For 10 hours Restarted 10/11/2023 10:58 AM PHARMACOVIGILANCE SPECIALIST New Bag 10/11/2023 4:49 AM PHARMACOVIGILANCE SPECIALIST 100 mL/hr 100 mL/hr levothyroxine (SYNTHROID) tablet 150 mcg 150 mcg, oral, Daily (early AM), First dose on Wed10/11/23 at 0600, Administer on an empty stomach, preferably 30 minutes before breakfast. Take 4 hours apart from antacids, iron and calcium products. Separate from tube feeds, if applicable. Given 10/13/2023 5:44 AM PHARMACOVIGILANCE SPECIALIST 150 mcg Given 10/12/2023 9:59 AM PHARMACOVIGILANCE SPECIALIST 150 mcg Given 10/11/2023 6:28 AM PHARMACOVIGILANCE SPECIALIST 150 mcg mirtazapine (REMERON) tablet 7.5 mg 7.5 mg, oral, Nightly, First dose on Wed10/11/23 at 2100 Given 10/12/2023 8:50 PM PHARMACOVIGILANCE SPECIALIST 7.5 mg Given 10/11/2023 9:02 PM PHARMACOVIGILANCE SPECIALIST 7.5 mg morphine injection 2 mg 2 mg, intravenous, Administer over 4 Minutes, Once, On Wed10/11/23 at 0030, For 1 dose Given 10/10/2023 11:59 PM PHARMACOVIGILANCE SPECIALIST 2 m g ondansetron (ZOFRAN) injection 4 mg 4 mg, intravenous, Administer over 2 Minutes, Every 6 hours PRN, nausea, vomiting, if not tolerating PO, Starting on 10/10/23 at 2125, Indications: Nausea and VomitingIndications:Nausea and Vomiting ondansetron ODT (ZOFRAN-ODT) disintegrating tablet 4 mg 4 mg, oral, Every 6 hours PRN, nausea, vomiting, Starting on 10/10/23 at 2125, Indications: Nausea and VomitingIndications:Nausea and Vomiting oxyBUTYnin XL (DITROPAN-XL) extended release tablet 15 mg 15 mg, oral, Nightly, First dose on Wed10/11/23 at 2100, Do not crush, chew, cut, dissolve, open or otherwise manipulate tablet/capsule. Given 10/12/2023 8:50 PM PHARMACOVIGILANCE SPECIALIST 15 mg Given 10/11/2023 9:01 PM PHARMACOVIGILANCE SPECIALIST 15 mg oxyCODONE (ROXICODONE) tablet 5 mg 5 mg, oral, Every 4 hours PRN, 2nd line for pain, Starting on Wed10/10/23 at 2309, Indications: PainIndications:Pain Given 10/10/2023 11:20 PM PHARMACOVIGILANCE SPECIALIST 5 mg pantoprazole (PROTONIX) 40 mg in sodium chloride 0.9% 10 mL IV Syringe 40 mg, intravenous, at 300 mL/hr, Administer over 2 Minutes, 2 times daily, First dose on Wed10/11/23 at 0915, For IV administration, reconstitute 40 mg vial with 10 mL sodium chloride 0.9% for injection for a final concentration of 4 mg/mL, Indications: GI BleedIndications:GI Bleed Given 10/11/2023 9:01 PM PHARMACOVIGILANCE SPECIALIST 40 mg 300 mL/hr Given 10/11/2023 9:11 AM PHARMACOVIGILANCE SPECIALIST 40 mg 300 mL/hr pantoprazole DR (PROTONIX) extended release tablet 40 mg 40 mg, oral, 2 times daily, First dose on Wed10/12/23 at 1400, Do not crush, chew, cut, dissolve, open or otherwise manipulate tablet/capsule., Indications: GI BleedIndications:GI Bleed Given 10/13/2023 7:51 AM PHARMACOVIGILANCE SPECIALIST 40 mg Given 10/12/2023 8:50 PM PHARMACOVIGILANCE SPECIALIST 40 mg Given 10/12/2023 2:21 PM PHARMACOVIGILANCE SPECIALIST 40 mg senna-docusate (PERICOLACE) 8.6-50 mg per tablet 1 tablet 1 tablet, oral, Nightly, First dose on Wed10/11/23 at 2100 Given 10/12/2023 8:50 PM PHARMACOVIGILANCE SPECIALIST 1 tablet Given 10/11/2023 9:02 PM PHARMACOVIGILANCE SPECIALIST 1 tablet senna-docusate (PERICOLACE) 8.6-50 mg per tablet 1 tablet 1 tablet, oral, Once, On Wed10/13/23 at 1515, For 1 dose Given 10/13/2023 2:40 PM PHARMACOVIGILANCE SPECIALIST 1 tablet sodium chloride 0.9% flush 0.5-20 mL 0.5-20 mL, intra-catheter, Every 8 hours scheduled, First dose on 10/10/23 at 2200, Flush volume based on line type and size. Given 10/12/2023 10:00 AM PHARMACOVIGILANCE SPECIALIST 10 mL Given 10/11/2023 9:04 PM PHARMACOVIGILANCE SPECIALIST 10 mL Given 10/10/2023 11:59 PM PHARMACOVIGILANCE SPECIALIST 10 mL sodium chloride 0.9% flush 0.5-20 mL 0.5-20 mL, intra-catheter, As needed, line care, Starting on 10/10/23 at 2125, Flush volume based on line type and size. Flush before and after each use. Given 10/12/2023 10:00 AM PHARMACOVIGILANCE SPECIALIST 10 mL tamsulosin (FLOMAX) extended release capsule 0.4 mg 0.4 mg, oral, Nightly, First dose on Wed10/11/23 at 2100, Do not crush, chew, cut, dissolve, open or otherwise manipulate tablet/capsule. Given 10/12/2023 8:50 PM PHARMACOVIGILANCE SPECIALIST 0.4 mg Given 10/11/2023 9:02 PM PHARMACOVIGILANCE SPECIALIST 0.4 mg tiZANidine (ZANAFLEX) tablet 2 mg 2 mg, oral, Nightly, First dose on Wed10/11/23 at 2100, Administer on an empty stomach Given 10/12/2023 8:50 PM PHARMACOVIGILANCE SPECIALIST 2 mg Given 10/11/2023 9:02 PM PHARMACOVIGILANCE SPECIALIST 2 mg documented in this encounter [...] Recently Administered Medications Times are shown in PHARMACOVIGILANCE SPECIALIST. Scheduled Medication Order 10/11/2023 10/12/2023 10/13/2023 donepeziL (ARICEPT) tablet 10 mg 10 mg, oral, Nightly, First dose on 10/11/23 at 2100 1027 (MAR Hold - Provider: Automatic Transfer Provider - Reason: Patient not available)1225 (MAR Unhold - Provider: Automatic Transfer Provider)2102 (Given - Provider: Latisha Navarrete RN) 2049 (Given - Provider: Tessy Woodruff, MARAH) gabapentin (NEURONTIN) capsule 200 mg 200 mg, oral, 3 times daily, First dose on Wed10/11/23 at 0900 0844 (Not Given - Provider: Lulu Jackson RN - Reason: NPO)1027 (DEC Hold - Provider: Automatic Transfer Provider - Reason: Patient not available)1225 (MAR Unhold - Provider: Automatic Transfer Provider)1408 (Given - Provider: Lulu Jackson RN)2100 (Given - Provider: Latisha Navarrete RN) 0959 (Given - Provider: Marva Vera RN)1703 (Given - Provider: Marva Vera RN - Comment: pt sleeping)2049 (Given - Provider: Tessy Woodruff, MARAH) 0751 (Given - Provider: Marva Vera RN) levothyroxine (SYNTHROID) tablet 150 mcg 150 mcg, oral, Daily (early AM), First dose on Wed10/11/23 at 0600, Administer on an empty stomach, preferably 30 minutes before breakfast. Take 4 hours apart from antacids, iron and calcium products. Separate from tube feeds, if applicable. 0628 (Given - Provider: Gladis Vera RN)1027 (DEC Hold - Provider: Automatic Transfer Provider - Reason: Patient not available)1225 ([facility] Unhold - Provider: Automatic Transfer Provider) 0959 (Given - Provider: Marva Vera RN) 0544 (Given - Provider: Tessy Woodruff RN) mirtazapine (REMERON) tablet 7.5 mg 7.5 mg, oral, Nightly, First dose on Wed10/11/23 at 2100 1027 (MAR Hold - Provider: Automatic Transfer Provider - Reason: Patient not available)1225 (MAR Unhold - Provider: Automatic Transfer Provider)2101 (Given - Provider: Latisha Navarrete RN) 2049 (Given - Provider: Tessy Woodruff RN) oxyBUTYnin XL (DITROPAN-XL) extended release tablet 15 mg 15 mg, oral, Nightly, First dose on Wed10/11/23 at 2100, Do not crush, chew, cut, dissolve, open or otherwise manipulate tablet/capsule. 1027 ([facility] Hold - Provider: Automatic Transfer Provider - Reason: Patient not available)1225 ([facility] Unhold - Provider: Automatic Transfer Provider)2100 (Given - Provider: Latisha Navarrete RN) 2049 (Given - Provider: Tessy Woodruff RN) pantoprazole (PROTONIX) 40 mg in sodium chloride [...] 0911 (Given - Provider: Lulu Jackson RN)1027 ([facility] Hold - Provider: Automatic Transfer Provider - Reason: Patient not available)1225 ([facility] Unhold - Provider: Automatic Transfer Provider)2100 (Given - Provider: Latisha Navarrete RN) 1000 (Not Given - Provider: Marva Vera RN [...] Navarrete RN) 2049 (Given - Provider: Tessy Woodruff, MARAH) senna-docusate (PERICOLACE) 8.6-50 mg per tablet 1 [...] Gladis Vera RN - Reason: IV Infusing)1027 ([facility] Hold - Provider: Automatic Transfer Provider - Reason: Patient not available)1225 ([facility] Unhold - Provider: Automatic Transfer Provider)1504 (Not [...] dissolve, open or otherwise manipulate tablet/capsule. 1027 ([facility] Hold - Provider: Automatic Transfer Provider - Reason: Patient not available)1225 ([facility] Unhold - Provider: Automatic Transfer Provider)2101 (Given - Provider: Latisha Navarrete RN) 2049 (Given - Provider: Tessy Woodruff RN) tiZANidine (ZANAFLEX) tablet 2 mg 2 mg, oral, Nightly, First dose on Wed10/11/23 at 2100, Administer on an empty stomach 1027 ([facility] Hold - Provider: Automatic Transfer Provider - Reason: Patient not available)1225 ([facility] Unhold - Provider: Automatic Transfer Provider)2101 (Given - Provider: Latisha Navarrete RN) 2049 (Given - Provider: Tessy Woodruff RN) Continuous Medication Order 10/11/2023 10/12/2023 10/13/2023 Lactated [...] Transfer Provider) 1421 (Given - Provider: Marva Vera RN) 0751 (Given - Provider: Marva Vera RN) albuterol HFA (PROVENTIL HFA,VENTOLIN HFA,PROAIR HFA) 90 mcg/actuation inhaler 2 puff 2 puff, inhalation, Every 4 hours PRN (respiratory care assistant), wheezing, shortness of breath, Starting on Wed10/11/23 at 0326 1027 (DEC Hold - Provider: Automatic Transfer Provider - Reason: Patient not available)1225 ([facility] Unhold - Provider: Automatic Transfer Provider) Carrier Fluids for Secondary Infusion - 0.9% Sodium Chloride 30 mL, intravenous, As needed, For priming tubing and/or flushing, Starting on 10/10/23 at 2125, 0-250 ml/hr to flush line after IV infusions when no maintenance IV ordered. Infuse 30mL at the same rate as the secondary infusion. Run as primary IV, not intended for KVO. 1027 (DEC Hold - Provider: Automatic Transfer Provider - Reason: Patient not available)1225 (DEC Unhold - Provider: Automatic Transfer Provider) ioversoL (OPTIRAY 350) syringe 75 mL (COMPLETED) 75 mL, intravenous, Once in imaging, contrast, Starting on 1/1/24 at 0958, For 1 dose 1005 (Contrast Given - Provider: Cindy Walker, RT) ondansetron (ZOFRAN) injection 4 mg(Linked Group 1) 4 mg, intravenous, Administer over 2 Minutes, Every 6 hours PRN, nausea, vomiting, if not tolerating PO, Starting on 10/10/23 at 2124, Indications: Nausea and Vomiting 1027 (MAR Hold - Provider: Automatic Transfer Provider - Reason: Patient not available)1225 (MAR Unhold - Provider: Automatic Transfer Provider) ondansetron ODT (ZOFRAN-ODT) disintegrating tablet 4 mg(Linked Group 1) 4 mg, oral, Every 6 hours PRN, nausea, vomiting, Starting on 10/10/23 at 2124, Indications: Nausea and Vomiting 1027 ([facility] Hold - Provider: Automatic Transfer Provider - Reason: Patient not available)1225 (MAR Unhold - Provider: Automatic Transfer Provider) sodium chloride 0.9% flush 0.5-20 mL 0.5-20 mL, intra-catheter, As needed, line care, Starting on 10/10/23 at 2124, Flush volume based on line type and size. Flush before and after each use. 1027 (MAR Hold - Provider: Automatic Transfer Provider - Reason: Patient not available)1225 (MAR Unhold - Provider: Automatic Transfer Provider) 1000 (Given - Provider: Marva Vera, RN) Linked Groups Order Group 1: ondansetron ODT (ZOFRAN-ODT) disintegrating tablet 4 mgJump to med 4 mg, oral, Every 6 hours PRN, nausea, vomiting, Starting on 10/10/23 at 2124, Indications: Nausea and Vomiting Or ondansetron (ZOFRAN) injection 4 mgJump to med 4 mg, intravenous, Administer over 2 Minutes, Every 6 hours PRN, nausea, vomiting, if not tolerating PO, Starting on 10/10/23 at 2124, Indications: Nausea and Vomiting documented in this encounter Orders Medications Ordered That Te ht Not Have Been Administered Count Last Ordered Date First Ordered Date albuterol HFA (PROVENTIL HFA ,VENTOLIN HFA,PROAIR HFA) 90 mcg/actuation inhaler 2 puff 2 10/11/2023 Carrier Fluids for Secondary Infusion - 0.9% Sodium Chloride 1 10/10/2023 ondansetron (ZOFRAN) injection 4 mg 1 10/10 ondansetron ODT (ZOFRAN-ODT) disintegrating tablet 4 mg 1 10/10/2023 Diet Count Last Ordered Date First Orde [...] 10/10/2023 documented in this encounter Care Teams Lining Brusher Relationship Specialty Start Date End Date Mark Ramos MD PCP - General Family Medicine 05/05/23 08/02/24 Unknown, Notinfile 03/12/22 [place] [id number] [facility] [address] [place] [address] 03/12/22 Morgan Enriquez MD [address] [facility] [address] [place] [address] Consulting Physician Pulmonary Disease 10/13/23 Carroll Cedillo MD [address] [facility] [address] [place] [address] Consulting Physician Gastroenterology 10/13/23 documented as of this encounter
--- OUTSIDE RECORDS SUMMARY | 2024-10-11 01:57 | XMS_ITS | Encounter Summary ---
Author Organization [facility] Healthcare Address [address] [place] [address] Care Team Providers Care Practice Coordinator Name Role Phone Wolfgang Serrano MD Primary Care Provider Unknown, Notinfile Unavailable Unavailable Santino Funk MD Unavailable [phone] Chuy Enriquez MD Unavailable Luis Felipe Cedillo MD Unavailable [phone] Marlene Thornton MD Unavailable [phone] Encounter Details Date Type Department Care Team (Late st Contact Info) Description 11/30/2023 Documentation [facility] [address] [facility] [address] [place] [address] Yi Lopez Social History Tobacco [...] relatives? Three times a week 11/25/2021 Attends [employer] Services Not on file 11/25 Active Member of Clubs or Organizations Not on f ile 11/25/2021 Attends Club or Organization Meetings Not on tomsa e 11/25/2021 Are you , , di [...] on file Legal Sex Male 3:25 PM PREDATORY ANIMAL HUNTER Gender Identity Not on file Sexual Orientation Not on file documented as of this encounter Progress Notes * Yi Lopez - 11/30/2023 2:36 PM CST Faxed office to note to pts pyrotechnician [phone] ATORY ANIMAL HUNTER documented in this encounter Plan of Treatment Upcoming Encounters Date Type Department Care Team (Latest Contact Info) Description 10/23/2024 10:00 AM PREDATORY ANIMAL HUNTER Hospital Encounter [facility] Operating Room [address] [place] [address] [place] [address] [address] 10/23/2024 10:00 AM PREDATORY ANIMAL HUNTER - 10/23/2024 1:00 PM PREDATORY ANIMAL HUNTER Surgery [facility] Operating Room [address] [place] [address] [place] [address] [id number] ARTHROPLASTY TOTAL KNEE LEFT Scheduled Procedures Name Priority Associated Diagnoses Date/Ti me ARTHROPLASTY TOTAL KNEE left knee osteoarthritis 10/23/2024 10:00 AM PREDATORY ANIMAL HUNTER ESOPHAGOGASTRODUODENOSCOPY Dysphagia, unspecified type documented as of this encounter Visit Diagnoses Not on filedocumented in this encounter Care Teams Practice Coordinator Relationship Specialty Start Date End Date Wolfgang Serrano MD PCP - General Family Medicine 05/05/23 08/02/24 Unknown, Notinfile 03/12/22 [place] [id number] [facility] [address] [place] [address] 03/12/22 Chuy Enriquez MD [address] [facility] [address] [place] [address] Consulting Physician Pulmonary Disease 10/13/23 Luis Felipe Cedillo MD [address] [place] [address] Consulting Physician Gastroenterology 10/13/23 Marlene Thornton MD [address] [facility] [facility] [address] [place] [address] Surgeon Vascular Surgery 11/10/23 documented as of this encounter
--- OUTSIDE RECORDS SUMMARY | 2024-10-11 01:57 | XMS_ITS | Encounter Summary ---
Author Organization [facility] Address [address] [place] [address] Phone Care Team Providers Care Office Equipment Mechanic Name Role Phone Wolfgang Serrano MD Primary Care Provider [phone] Unknown, Notinfile Unavailable Unavailable Santino Funk MD Unavailable [phone] Chuy Enriquez MD Unavailable Luis Felipe Cedillo MD Unavailable Marlene Thornton MD Unavailable [phone] Reason for Referral * Diagnostic Imaging (Routine) - Pending Review Specialty Diagnoses / Procedures Referred By Contac t Referred To Contact Diagnoses Infrarenal abdominal aortic aneurysm (AAA) without rupture (HCC) Procedures US Duplex Scan of Aorta; Inferior Vena Cava, Iliac, Limited or Unilateral Marleen Thornton MD [address] [facility] [address] [place] [address] Phone: tel: fax: [facility] (All Locations) Referral ID Status Reason Start Date Expiration Date V isits Requested Visits Authorized [id number] Pending Review 11/12/2023 12/11/2024 1 1 RITY SUPERVISOR Reason for Visit * Reason Comments New Patient Encounter Details Date Type Department Care Team (Late st Contact Info) Description 11/12/2023 9:00 AM SORORITY SUPERVISOR Office Visit [facility] Surgery [address] [facility] [address] [place] [address] [place] [address] Marlene Thornton MD [address] [place] [address] Infrarenal abdominal aortic aneurysm (AAA) without rupture (HCC) (Primary Dx) Social History Tobacco Use Types [...] relatives? Three times a week 11/25/2021 Attends [employer] Services Not on file 11/25 Active Member [...] in a long term (including now)? No 11/25/2021 Personal Safety Answer Date Recorded Getting School Help Needed Denies 10/10 Sex and Gender Information Value Date Recorded Sex Assigned at Not on file Legal Sex Male 3:25 PM SORORITY SUPERVISOR Gender Identity Not on file Sexual Orientation Not on file documented as of this encounter Last Filed Vital Signs Vital Sign Reading Time Taken Comments Blood Pressure 132/83 11/12/2023 8:16 AM SORORITY SUPERVISOR Pulse 93 11/12/2023 8:16 AM SORORITY SUPERVISOR Temperature - - Respiratory Rate - - Oxygen Saturation 97% 11/12/2023 8:16 AM SORORITY SUPERVISOR Inhaled Oxygen Concentration - - Weight 99.8 kg (220 lb) 11/12/2023 8:16 AM SORORITY SUPERVISOR Height 180.3 cm (5' 11 ) 11/12/2023 8:16 AM SORORITY SUPERVISOR Body Mass Index 30.68 11/12/2023 8:16 AM SORORITY SUPERVISOR documented in this encounter Progress Notes * Jacque Marcus MD - 11/12/2023 9:00 AM CST New Patient Subjective: Patient Name: Abrahan Gtz Jr. Date of Visit: 11/12/23 HPI: Abrahan Gtz Jr. is a 78 y.o. male presenting for surgical evaluation of infrarenal DEMARCO. Mr. Gtz has a past medical history of hiatal hernia and presented to his PCP with concern for recurrentsymptoms with nausea, emesis and feeling of food getting caught. He underwent a CT scan that incidentally showed a small infrarenal penetrating atherosclerotic ulcer. He denies any significant abdominal or back pain. He does not currently take an aspirin or statin. Chief Complaint: DEMARCO Referred by: Wolfgang Serrano MD Allergies as of 11/12/2023 (No Known Allergies) Current Outpatient Medications: Advair HFA 230-21 mcg/actuation inhaler, Inhale 2 puffs 2 (two) times a day, Disp: , Rfl: albuterol HFA (PROVENTIL HFA,VENTOLIN HFA,PROAIR HFA) 90 mcg/actuation inhaler, 2 puffs every 4 (four) hours as needed, Disp: , Rfl: capsaicin 0.1 % cream, Apply to your feet three to four times a day., Disp: 60 g, Rfl: 5 cholecalciferol (VITAMIN D-3) 2000 unit capsule, Take 1 capsule (2,000 Units total) by mouth daily (Patient taking differently: Take 1 capsule (2,000 Units total) by mouth nightly), Disp: 30 capsule,Rfl: 3 donepeziL (ARICEPT) 10 mg tablet, Take 1 tablet by mouth nightly, Disp: 30 tablet, Rfl: 0 furosemide (LASIX) 20 mg tablet, Take 1 tablet (20 mg total) by mouth 2 (two) times a day, Disp: , Rfl: gabapentin (NEURONTIN) 100 mg capsule, TAKE 2 CAPSULES BY MOUTH THREE TIMES DAILY, Disp: 180 capsule, Rfl: 0 levothyroxine (SYNTHROID) 150 mcg tablet, Take 1 tablet (150 mcg total) by mouth daily, Disp: , Rfl: lidocaine (ASPERCREME) 4 % adhesive patch,medicated, Place 1 patch on the skin daily for 12 days, Disp: 12 patch, Rfl: 0 melatonin 10 mg tablet, Take 1 tablet (10 mg total) by mouth nightly, Disp: , Rfl: mirtazapine (REMERON) 7.5 mg tablet, TAKE 1 TABLET BY MOUTH ONCE DAILY AT NIGHT, Disp: , Rfl: omeprazole (PriLOSEC) 20 mg capsule, Take 2 capsules (40 mg total) by mouth daily, Disp: 60 capsule, Rfl: 11 oxybutynin XL (DITROPAN-XL) 10 mg 24 hr tablet, Take 15 mg by mouth nightly, Disp: , Rfl: permethrin (ELIMITE) 5 % cream, APPLY FROM THE NECK DOWN AT NIGHT, WASH OFF IN THE MORNING, REPEAT IN 1 WEEK, Disp: , Rfl: sildenafiL, pulm.hypertension, (REVATIO) 20 mg tablet, Take 1 tablet (20 mg total) by mouth daily, Disp: , Rfl: tiZANidine (ZANAFLEX) 2 mg tablet, TAKE 1 TABLET BY MOUTH EVERY 8 HOURS NEEDED FOR MUSCLE SPASM (Patient taking differently: Take 1 tablet (2 mg total) by mouth nightly), Disp: 60 tablet, Rfl: 0 turmeric root extract 500 mg capsule, Take 1,000 mg by mouth nightly, Disp: , Rfl: tamsulosin (FLOMAX) 0.4 mg extended release capsule, Take 1 capsule (0.4 mg total) by mouth nightly(Patient not taking: Reported on 05/04/2023), Disp: , Rfl: Past Medical History: Diagnosis Date Acute gastric [...] delayed healing, subsequent encounter Clotting disorder (CMS/HCC) ([facility]) Complex tear of medial meniscus of left knee as current injury Complex tear of medial meniscus of right knee as current injury Cramps of lower extremity Diverticulitis of colon Easy bruisability Fatigue Frequent urination Gastroesophageal reflux disease GERD Hypothyroidism Incontinence of urine Muscle weakness Osteoarthritis Osteoarthritis Peptic ulcer Peptic ulcer disease Seizures ([facility]) 1997 last seizure in 1997 SOB (shortness of breath) on exertion Subchondral insufficiency fracture of condyle of left femur (CMS/HCC) ([facility]) Vertigo Vision changes Visual disturbance [...] of Binge Drinking: Never Review of Systems A comprehensive ROS was performed by me. Pertinent items are noted in HPI. Objective: Vitals BP 132/83 (BP Location: Right arm, Patient Position: Sitting) Pulse 93 Ht 180.3 cm (5' 11 ) Wt 99.8 kg (220 lb) SpO2 97% BMI 30.68 kg/m?? Physical Exam BP 132/83 (BP Location: Right arm, Patient Position: Sitting) Pulse 93 Ht 180.3 cm (5' 11 ) Wt 99.8 kg (220 lb) SpO2 97% BMI 30.68 kg/m?? HENT: Normocephalic and atraumatic. Extraocular movements are intact. EYES: Pupils are equal and reactive to light bilaterally. NECK: Supple with no lymphadenopathy CHEST: Symmetric chest expansion with no accessory muscle usage HEART: Regular rate and rhythm. ABDOMEN: Soft, nontender, nondistended. VASCULAR: Palpable femoral pulses, palpable DP pulses. MUSCULOSKELETAL: Non-edematous NEURO: Grossly intact motor and sensory exam. Assessment: No diagnosis found. Plan: No orders of the defined types were placed in this encounter. Mr. Gtz is a 78 yo M with a small, asymptomatic atherosclerotic ulcer. Ulcer does not currently meet criteria for size and he has no concerning symptoms at this time. Will plan to follow up in 1 year with an aortic duplex. Will plan to start 81mg aspirin daily and will defer discussion of statin to his PCP. Cosigned by Marlene Thornton MD at 11/12/2023 12:02 PM SORORITY SUPERVISOR RITY SUPERVISOR RITY SUPERVISOR Associated attestation - Marlene Thornton MD - 11/12/2023 12:02 PM SORORITY SUPERVISOR I have seen and examined the patient. I agree with the findings and plan of care as documented in the resident/fellow's note. My total encounter time on 11/12/2023 was 40 minutes which was spent in theactivities documented in the note. This includes time spent prior to the visit and after the visit in direct care of the patient. This time does not include time spent in any separately reportable services. documented in this encounter Plan of Treatment Upcoming Encounters Date Type Department Care Team (Latest Contact Info) Description 10/23/2024 10:00 AM SORORITY SUPERVISOR Hospital Encounter [facility] Operating Room [address] [place] [address] [place] [address] [address] 10/23/2024 10:00 AM SORORITY SUPERVISOR - 10/23/2024 1:00 PM SORORITY SUPERVISOR Surgery [facility] Operating Room [address] [place] [address] [place] [address] [address] ARTHROPLASTY TOTAL KNEE LEFT Scheduled Orders Name Type Priority Associated Diagnoses Orde r Schedule US Duplex Scan of Aorta; Inferior Vena Cava, Iliac, Limited or Unilateral Imaging Schedule Routine, Read Routine (OP Routine) Infrarenal abdominal aortic aneurysm (AAA) without rupture (HCC) Expected: 11/12/2024, Expires: 05/12/2025 Scheduled Procedures Name Priority Associated Diagnoses Date/Ti me ARTHROPLASTY TOTAL KNEE left knee osteoarthritis 10/23/2024 10:00 AM SORORITY SUPERVISOR ESOPHAGOGASTRODUODENOSCOPY Dysphagia, unspecified type documented as of this encounter Visit Diagnoses Diagnosis Infrarenal abdominal aortic aneurysm (AAA) without rupture (HCC)- Primary documented in this encounter Historical Medications * This list may reflect changes made after this encounter. Advair HFA 230-21 mcg/actuation inhaler Inhale 2 puffs 2 (two) times a day 11/09/2023 permethrin (ELIMITE) 5 % cream APPLY FROM THE NECK DOWN AT NIGHT, WASH OFF IN THE MORNING, REPEAT IN 1 WEEK 10/29/2023 01/07/2024 added in this encounter Care Teams Office Equipment Mechanic Relationship Specialty Start Date End Date Wolfgang Serrano MD PCP - General Family Medicine 05/05/23 08/02/24 Unknown, Notinfile 03/12/22 [place] [address] [facility] [address] [place] [address] 03/12/22 Chuy Enriquez MD [address] [facility] [address] [place] [address] Consulting Physician Pulmonary Disease 10/13/23 Luis Felipe Cedillo MD [address] [facility] [address] [place] [address] Consulting Physician Gastroenterology 10/13/23 Marlene Thornton MD [address] [facility] [address] [place] [address] Surgeon Vascular Surgery 11/10/23 documented as of this encounter
--- OUTSIDE RECORDS SUMMARY | 2024-10-11 01:58 | XMS_ITS | Encounter Summary ---
Author Organization [facility] Address [address] [place] [address] Care Team Providers Care Knitter Helper Name Role Phone No, Physician Primary Care Provider Unknown, Notinfile Unavailable Unavailable Santino Funk MD Unavailable [phone] Encounter Details Date Type Department Care Team (Late st Contact Info) Description 09/09/2022 Orders Only [facility] [address] [facility] [address] [place] [address] Norma Park, LORI [address] [facility] [address] [place] [address] Social History Tobacco Use Types Packs/Day Years Used Date Smoking Tobacco: Former Cigarettes 1 [phone] - [phone] Smokeless Tobacco: Never Alcohol Use Standard Drinks/Week [...] slept in a usp (including now)? No 11/25/2021 Sex and Gender Information Value Date Recorded Sex Assigned at Not on file Legal Sex Male 3:25 PM RFID ANALYST Gender Identity Not on file Sexual Orientation Not on file documented as of this encounter Ordered Prescriptions Prescription Sig Dispense Quantity Refills Last Filled Start Date End Date diclofenac DR (VOLTAREN) 50 mg EC tablet Take 1 tablet (50 mg total) by mouth 2 (two) times a day as needed for pain 60 tablet 1 09/09/2022 11/11/2022 documented in this encounter Plan of Treatment Upcoming Encounters Date Type Department Care Team (Latest Contact Info) Description 10/23/2024 10:00 AM RFID ANALYST Hospital Encounter [facility] Operating Room [address] [place] [address] [place] [address] [facility] [address] [place] [address] 10/23/2024 10:00 AM RFID ANALYST - 10/23/2024 1:00 PM RFID ANALYST Surgery [facility] Operating Room [address] [place] [address] [place] [address] [id number] ARTHROPLASTY TOTAL KNEE LEFT Scheduled Procedures Name Priority Associated Diagnoses Date/Ti me ARTHROPLASTY TOTAL KNEE left knee osteoarthritis 10/23/2024 10:00 AM RFID ANALYST ESOPHAGOGASTRODUODENOSCOPY Dysphagia, unspecified type documented as of this encounter Visit Diagnoses Not on filedocumented in this encounter Discontinued Medications Medication Sig Discontinue Reason Start Date End Da te diclofenac DR (VOLTAREN) 75 mg EC tablet TAKE 1 TABLET BY MOUTH TWICE DAILY WITH FOOD. DO NOT TAKE WITH OTHER ANTI-INFLAMMATORY MEDICATION 08/10/2022 09/09/2022 documented as of this encounter Care Teams Knitter Helper Relationship Specialty Start Date End Date No, Physician PCP - General 05/14/22 09/29/22 Unknown, Notinfile 03/12/22 [place] [address] [facility] [place] [address] 03/12/22 documented as of this encounter
--- OUTSIDE RECORDS SUMMARY | 2024-10-11 01:58 | XMS_ITS | Encounter Summary ---
Author Organization [facility] Address [address] [place] [address] Care Team Providers Care Speech And Drama Teacher Name Role Phone Santino Funk MD Primary Care Provider + Unknown, Notinfile Unavailable Unavailable Santino Funk MD Unavailable [phone] Encounter Details Date Type Department Care Team (Late st Contact Info) Description 10/26/2022 9:00 AM CLEAT LAYER Lab [address] [address] Abnormality of gait and mobility; Idiopathic peripheral neuropathy Social History Tobacco Use Types Packs/Day Years [...] relatives? Three times a week 11/25/2021 Attends [employer] Not on file 11/25 Active Member [...] in a half-way (including now)? No 11/25/2021 Sex and Gender Information Value Date Recorded Sex Assigned at Not on file Legal Sex Male 3:25 PM CLEAT LAYER Gender Identity Not on file Sexual Orientation Not on file documented as of this encounter Plan of Treatment Upcoming Encounters Date Type Department Care Team (Latest Contact Info) Description 10/23/2024 10:00 AM CLEAT LAYER Hospital Encounter [facility] Operating Room [address] [place] [address] [place] [address] [facility] [address] [place], [place] [id number] 10/23/2024 10:00 AM CLEAT LAYER - 10/23/2024 1:00 PM CLEAT LAYER Surgery [facility] Operating Room [address] [place] [address] [place] [address] [facility] [address] [place], [place] [id number] ARTHROPLASTY TOTAL KNEE LEFT Scheduled Procedures Name Priority Associated Diagnoses Date/Ti me ARTHROPLASTY TOTAL KNEE left knee osteoarthritis 10/23/2024 10:00 AM CLEAT LAYER ESOPHAGOGASTRODUODENOSCOPY Dysphagia, unspecified type documented as of this encounter Procedures Procedure Name Priority Date/Time Associated Diagnosis Comments KARLA REFLEX TO QUANTITATIVE AND DSDNA Routine 10/26/2022 10:45 AM CLEAT LAYER Abnormality of gait and mobility Idiopathic peripheral neuropathy CLINICAL PATHOLOGY REPORT Routine 10/26/2022 10:45 AM CLEAT LAYER METHYLMALONIC ACID, SERUM Routine 10/26/2022 10:45 AM CLEAT LAYER Abnormality of gait and mobility Idiopathic peripheral neuropathy PROTEIN ELECTROPHORESIS, WITH REFLEX, SERUM Routine 10/26/2022 10:45 AM CLEAT LAYER Abnormality of gait and mobility Idiopathic peripheral neuropathy ZINC Routine 10/26/2022 10:35 AM CLEAT LAYER Abnormality of gait and mobility Idiopathic peripheral neuropathy ERYTHROCYTE SEDIMENTATION RATE Routine 10/26/2022 10:35 AM CLEAT LAYER Abnormality of gait and mobility Idiopathic peripheral neuropathy VITAMIN E Routine 10/26/2022 10:10 AM CLEAT LAYER Abnormality of gait and mobility Idiopathic peripheral neuropathy FOLATE Routine 10/26/2022 10:10 AM CLEAT LAYER Abnormality of gait and mobility Idiopathic peripheral neuropathy VITAMIN B12 Routine 10/26/2022 10:10 AM CLEAT LAYER Abnormality of gait and mobility Idiopathic peripheral neuropathy documented in this encounter Results * Clinical pathology report (10/26/2022 10:45 AM CLEAT LAYER) Miscellaneous 10/26/2022 10: 45 AM CLEAT LAYER 10/27/2022 8:12 AM CLEAT LAYER Narrative 10/28/2022 1:18 PM CLEAT LAYER [facility] results best viewed via link to PDF [facility] Department of Pathology [address] [place] [id number] Final Report Note to Patients: This report may contain [...] can answer questions and explain the details. Patient Name: ? GUNJAN GTZ JR Address: ??[address] [place] [id number] Gender: ??M : ??1945 (Age: 77) Service: ?? Location: ?? Hospital #: ??[id number] Patient Type: ??[facility] Taken: ??10/26/2022 Received: ?? 10/27/2022 Accessioned: ??10/27/2022 Physician(s): ??Nayan Mahajan M.D. Specimen(s) Received A: Blood (serum) Serum Protein ElectrophoresisReported:10/28/2022 Interpretation: Serum Protein Electrophoresis: Normal serum protein electrophoresis pattern. Comment: Serum Protein Electrophoresis: There are no significant abnormalities of the protein fractions. See [facility] and/or separate report for protein fraction table. Abel Ambriz MD PhDReport Electronically Reviewed and Signed Out By ??Abel Ambriz MD PhD ??10/28/2022 13:18:41 The performance characteristics of some immunohistochemical stains, fluorescence in-situ hybridization tests and immunophenotyping by flow cytometry cited in this report (if any) were determined by the Surgical Pathology Department at [facility] as part of an ongoing quality assurance coordinator program and in compliance with federally mandated regulations drawn from the Clinical Laboratory Improvement Act of 1988 (CLIA '88). ??Some of these tests rely on the use of analyte specific reagents and are subject to specific labeling requirements by the US Food and Drug Administration. ??Such diagnostic tests may only be performed in a facility that is certified by the Department of Health and Human Services as a high complexity laboratory under CLIA '88. The FDA has determined that such clearance or approval is not necessary. ??This test is used for clinical purposes. ??It should not be regarded as investigational or for research. ??Nevertheless, federal rules concerning the medical use of analyte specific reagents require that the following disclaimer be attached to the report: This test was developed and its performance characteristics determined by the Surgical Pathology Department [facility]. ??It has not been cleared or approved by the U. S. Food and Drug Administration. REPORT IMAGES AND SCANNED DOCUMENTS, IF INCLUDED, ONLY VIEWABLE IN PDF VERSION OF REPORTe o Nayan Mahajan II, MD LAB PATHOLOGY ORDERABLES Fin al Result * Protein electrophoresis with reflex, serum (10/26/2022 10:45 AM CLEAT LAYER) Protein, sr 6.3 6.2 - 8.2 g/dL [facility] Albumin 3.7 3.2 - 5.0 g/dL [facility] Alpha-1 globulin 0.3 0.2 - 0.4 g/dL [facility] Alpha-2 globulin 0.6 0.5 - 1.0 g/dL [facility] Beta-1 globulin 0.3 0.3 - 0.6 g/dL [facility] Beta-2 globulin 0.4 0.2 - 0.6 g/dL [facility] Gamma globulin 1.0 0.5 - 1.7 g/dL [facility] SPEP interp See Cl Path Rpt [facility] Blood 10/26/2022 10:4 5 AM CLEAT LAYER 10/26/2022 10:45 AM CLEAT LAYER Nayan Mahajan II, MD LAB BLOOD ORDERABLES Final R esult ANYDEE FISHER [address] Department [place] [address] * Methylmalonic acid, serum (10/26/2022 10:45 AM CLEAT LAYER) MMA 0.14 <=0.40 nmol/mL [facility] Comment: ADDITIONAL INFORMATION This test was developed and its performance characteristics determined by [facility] in a manner consistent with CLIA requirements. This test has not been cleared or approved by the U.S. Food and Drug Administration. Test Performed by: [facility] - [address] [address] Gut Dropper: Byron Nance M.D. Ph.D.; CLIA# [id number] Blood 10/26/2022 10:4 5 AM CLEAT LAYER 10/26/2022 10:45 AM CLEAT LAYER Nayan Mahajan II, MD LAB BLOOD ORDERABLES Final R esult Performing Organization Address [facility] Co de Phone Number MARVIN FISHER [address] [place] [address] * KARLA Reflex to Quantitative and dsDNA (10/26/2022 10:45 AM CLEAT LAYER) KARLA Negative Negative [facility]VIN FISHER Comment: Interpretive Data Normal range for KARLA Qualitative Antibody = Negative. 1. KARLA is performed using indirect immunofluorescence against HEp-2 ?? cells 2. KARLA titers are performed on all positive qualitative results. 3. A significantly positive KARLA result is defined as a positive nuclear ?? fluorescence at a titer of 1:80 or greater. 4. 15% of normal people above age 65 have significantly positive ?? KARLA results. ??5% or less of normal people age 65 or under have ?? significantly positive KARLA results. Current interpretive data was last revised on 20. Blood 10/26/2022 10:4 5 AM CLEAT LAYER 10/26/2022 10:45 AM CLEAT LAYER Nayan Mahajan II, MD LAB BLOOD ORDERABLES Final R esult MARVIN FISHER [address] [place] [address] * Erythrocyte sedimentation rate (10/26/2022 10:35 AM CLEAT LAYER) Erythrocyte sedimentation rate 5 1 - 20 mm/hr [facility] Blood 10/26/2022 10:3 5 AM CLEAT LAYER 10/26/2022 10:35 AM CLEAT LAYER Nayan Mahajan II, MD LAB BLOOD ORDERABLES Final R esult Performing Organization Address [facility] de Phone Number [facility] [address] [address] [place] [address] * Zinc (10/26/2022 10:35 AM CLEAT LAYER) Pathologist [facility] Zinc 74 60 - 106 mcg/dL [facility] Comment: ADDITIONAL INFORMATION This test was developed and its performance characteristics determined by [facility] in a manner consistent with CLIA requirements. This test has not been cleared or approved by the U.S. Food and Drug Administration. Test Performed by: [facility] [place] [address] Gut Dropper: Byron Nance M.D. Ph.D.; CLIA# [id number] Blood 10/26/2022 10:3 5 AM CLEAT LAYER 10/26/2022 10:35 AM CLEAT LAYER Nayan Mahajan II, MD LAB BLOOD ORDERABLES Final R esult Performing Organization Address [facility] Co de Phone Number [facility] [address] [address] [facility] [place] [address] * Vitamin B12 (10/26/2022 10:10 AM CLEAT LAYER) Pathologist [facility] Vitamin B12 791 230 - 1,250 pg/mL [facility] Blood 10/26/2022 10:1 0 AM CLEAT LAYER 10/26/2022 10:31 AM CLEAT LAYER Nayan Mahajan II, MD LAB BLOOD ORDERABLES Final R esult Performing Organization Address City/[facility] de Phone Number MARVIN FISHER [address] [address] [place] [address] * Folate (10/26/2022 10:10 AM CLEAT LAYER) Folic acid 5.4 >=5.0 ng/mL [facility] Comment:Hemolysis present. R esults may be affected. Blood 10/26/2022 10:1 0 AM CLEAT LAYER 10/26/2022 10:31 AM CLEAT LAYER Nayan Mahajan II, MD LAB BLOOD ORDERABLES Final R esult Performing Organization Address [facility] de Phone Number MARVIN FISHER [address] [address] [facility] [place] [address] * Vitamin E (10/26/2022 10:10 AM CLEAT LAYER) Tocopherol (Vit E) 10.8 5.5 - 17.0 mg/L [facility] Comment: ADDITIONAL INFORMATION This test was developed and its performance characteristics determined by [facility] in a manner consistent with CLIA requirements. This test has not been cleared or approved by the U.S. Food and Drug Administration. Test Performed by: [facility] [place] [address] Gut Dropper: Byron Nance M.D. Ph.D.; CLIA# [id number] Blood 10/26/2022 10:1 0 AM CLEAT LAYER 10/26/2022 3:14 PM CLEAT LAYER Nayan Mahajan II, MD LAB BLOOD ORDERABLES Final R esult Performing Organization Address [facility] de Phone Number MARVIN FISHER [address] [address] [facility] [place] [address] documented in this encounter Visit Diagnoses Diagnosis Abnormality of gait and mobility Idiopathic peripheral neuropathy Unspecified hereditary and idiopathic peripheral neuropathy documented in this encounter Care Teams Speech And Drama Teacher Relationship Specialty [place] [address] [facility] [address] PCP - General Internal Medicine 09/30/22 05/04/23 Unknown, Notinfile 03/12/22 [place] [address] [facility] [address] 03/12/22 documented as of this encounter
--- OUTSIDE RECORDS SUMMARY | 2024-10-11 01:58 | XMS_ITS | Encounter Summary ---
Author Organization [facility] Address [address] [place] [address] Care Team Providers Care Garage Door Hanger Name Role Phone Santino Funk MD Primary Care Provider + Unknown, Notinfile Unavailable Unavailable Santino Funk MD Unavailable [phone] Reason for Referral * Neurology (Routine) - Closed Specialty Diagnoses / Procedures Referred By Contac t Referred To Contact Diagnoses Abnormality of gait and mobility Idiopathic peripheral neuropathy Procedures EMG/[place] [address] [address] Phone: tel: fax: [facility] [id number] [place] [id number] Referral ID Status Reason Start Date Expiration Date Visits Re quested Visits Authorized [id number] Closed 09/30/2022 10/30/2023 1 1 BASTING COLLAR BASTER Reason for Visit * Reason Comments Alzheimer's Disease Encounter Details Date Type Department Care Team (Late st Contact Info) Description 09/30/2022 2:45 PM JUMPBASTING COLLAR BASTER Office Visit [facility] [address] [address] [place] [address] [facility] [address], [place] [address] Alzheimer's disease (HCC) (Primary Dx); Restless leg syndrome; Abnormality of gait and mobility; Idiopathic peripheral neuropathy; 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 Three times a week 11/25/2021 Attends Worship Services Not on file 11/25 Active Member [...] in a long-term (including now)? No 11/25/2021 Sex and Gender Information Value Date Recorded Sex Assigned at Not on file Legal Sex Male 3:25 PM JUMPBASTING COLLAR BASTER Gender Identity Not on file Sexual Orientation Not on file documented as of this encounter Last Filed Vital Signs Vital Sign Reading Time Taken Comments Blood Pressure 128/82 09/30/2022 2:51 PM JUMPBASTING COLLAR BASTER Pulse 57 09/30/2022 2:51 PM JUMPBASTING COLLAR BASTER Temperature - - Respiratory Rate 16 09/30/2022 2:51 PM JUMPBASTING COLLAR BASTER Oxygen Saturation 97% 09/30/2022 2:51 PM JUMPBASTING COLLAR BASTER Inhaled Oxygen Concentration - - Weight 101.8 kg (224 lb 5.1 oz) 09/30/2022 2:51 PM JUMPBASTING COLLAR BASTER Height 180.3 cm (5' 10.98 ) 09/30/2022 2:[address] Body Mass Index 31.3 09/30/2022 2:51 PM JUMPBASTING COLLAR BASTER documented in this encounter Ordered Prescriptions Prescription Sig Dispense Quantity Refills Last Filled Start Date End Date donepeziL (ARICEPT) 10 mg tabletIndications: 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 male with a dementia of the Alzheimer's type. Memory Loss This patient is seen for follow-up with the patient's complaint of memory loss he is currently doing well on donepezil 10 mg taken daily. There are no side effects from the medication. He feels thathis memory is good. He is a new complaint since I last saw him he indicates that his balance has been off he may have to hold onto the posey when he is ambulating. This occurs on a background of severe degenerative osteoarthritis of both knees. In addition he is now complaining of pins and needles and numbness and tingling in his feet sometimes it involves his hands. He can identify no triggers and there are no other aggravating or relieving factors. If he does take a shower and he closes his ey es because soap gets into the eye his balance can be affected. Review of Systems Constitutional: Negative for activity change, appetite change and fever. HENT: Negative for hearing loss, sore throat and tinnitus. Eyes: Negative for visual disturbance. Respiratory: Negative for cough and shortness of breath. Cardiovascular: Negative for chest pain and palpitations. Gastrointestinal: Negative for abdominal pain, constipation, diarrhea and nausea. Musculoskeletal: Positive for gait problem. Negative for arthralgias and back pain. Neurological: Positive for numbness. Negative for dizziness, seizures, syncope, facial asymmetry, speech difficulty, weakness, light-headedness and headaches. Psychiatric/Behavioral: Negative for agitation, behavioral problems, confusion, decreased concentration, dysphoric mood and hallucinations. The patient is not nervous/anxious and is not hyperactive. Objective: Neurological Exam Mental Status Awake and alert. Oriented only to person, place and time. Recalls 3 of 3 objects immediately. At 3 minutes recalls 3 of 3 objects. Speech is normal. Language is fluent with no aphasia. Able to spell words backwards. Cranial Nerves CN II: Visual white full to confrontation. CN III, IV, : Extraocular movements intact bilaterally. Normal lids and orbits bilaterally. Pupils equal round and reactive to light bilaterally. CN V: Facial sensation is normal. CN VII: Full and symmetric facial movement. CN VIII: Hearing is normal. CN IX, X: Palate elevates symmetrically. Normal gag reflex. CN XI: Shoulder shrug strength is normal. CN XII: Tongue midline without atrophy or fasciculations. Motor Strength is 5/5 throughout all four extremities. Sensory Sensation is intact to light touch, pinprick, vibration and proprioception in all four extremities. Reflexes Deep tendon reflexes are 2+ and symmetric in all four extremities. Coordination [id number], rapid alternating movements and ujhc-ew-[id number] normal bilaterally without dysmetria. Gait Unsteady antalgic narrow based. Physical Exam Vitals reviewed. Constitutional: General: He is awake. Appearance: Normal appearance. He is well-developed. HENT: Head: Normocephalic and atraumatic. Eyes: General: Lids are normal. Extraocular Movements: Extraocular movements intact. Conjunctiva/sclera: Conjunctivae normal. Pupils: Pupils are equal, round, and reactive to light. Cardiovascular: Rate and Rhythm: Normal rate and regular rhythm. Pulmonary: Effort: Pulmonary effort is normal. Abdominal: Palpations: Abdomen is soft. Musculoskeletal: General: Normal range of motion. Cervical back: Normal range of motion. Right lower leg: No edema. Left lower leg: No edema. Skin: General: Skin is warm. Neurological: Mental Status: He is alert. Motor: Motor strength is normal. Coordination: Coordination is intact. Deep Tendon Reflexes: Reflexes are normal and symmetric. Psychiatric: Speech: Speech normal. Assessment/Plan: 1. Dementia of the Alzheimer's type this appears to be stable donepezil be refilled at the current dose of 10 mg daily. 2. Disturbance of gait and balance 3. Numbness and tingling of the feet 4. Idiopathic peripheral neuropathy He will be sent for EMG nerve conduction velocity testing of both lower extremities. B12 folate methylmalonic acid vitamin E zinc levels will be checked serum protein electrophoresis will be checked as well as a sedimentation rate antinuclear antibodies with reflex anti DNA antibodies. His thyroid function has been within normal limits. He will be seen on follow-up upon completion of the above ordered diagnostic tests. Medications Current Outpatient Medications: cholecalciferol (VITAMIN D-3) 2000 unit capsule, Take 1 capsule (2,000 Units total) by mouth daily (Patient taking differently: Take 2,000 Units by mouth nightly), Disp: 30 capsule, Rfl: [address] (VOLTAREN) 50 mg EC tablet, Take 1 tablet (50 mg total) by mouth 2 (two) times a day as needed for pain, Disp: 60 tablet, Rfl: 1 levothyroxine (SYNTHROID) 150 mcg tablet, Take 150 mcg by mouth daily, Disp: , Rfl: magnesium oxide (MAG-OX) 250 mg (150.8 mg elemental) tablet, Take 250 mg by mouth nightly, Disp: , Rfl: mirtazapine (REMERON) 7.5 mg tablet, TAKE 1 TABLET BY MOUTH ONCE DAILY AT NIGHT, Disp: , Rfl: omeprazole (PriLOSEC) 20 mg capsule, take 1 capsule by oral route every day before a meal, Disp: 0,Rfl: 0 oxybutynin XL (DITROPAN-XL) 10 mg 24 hr tablet, Take 10 mg by mouth nightly, Disp: , Rfl: polyethylene glycol (MIRALAX) 17 gram packet, Take 17 g by mouth daily as needed for constipation, Disp: , Rfl: senna-docusate (PERICOLACE) 8.6-50 mg, Take 1 tablet by mouth nightly, Disp: , Rfl: sildenafiL, pulm.hypertension, (REVATIO) 20 mg tablet, Take 20 mg by mouth daily, Disp: , Rfl: tamsulosin (FLOMAX) 0.4 mg extended release capsule, Take 0.4 mg by mouth nightly, Disp: , Rfl: tiZANidine (ZANAFLEX) 2 mg tablet, Take 2 tablets (4 mg total) by mouth nightly 1 to 2 tablets at bedtime, Disp: 60 tablet, Rfl: 5 traMADoL (ULTRAM) 50 mg tablet, Take 1 tablets every 6 hours as needed for pain., Disp: 20 tablet, Rfl: 0 traZODone (DESYREL) 50 mg tablet, Take by mouth nightly 1/2 to 1 tablet, Disp: , Rfl: turmeric root extract 500 mg capsule, Take 1,000 mg by mouth nightly, Disp: , Rfl: UNABLE TO FIND, Take 1 each by mouth nightly Med Name: muscle cramp pain reliever Patient takes 3 different OTC homeopathic muscle cramp medications, Disp: , Rfl: donepeziL (ARICEPT) 10 mg tablet, Take 1 tablet (10 mg total) by mouth nightly, Disp: 30 tablet, Rfl: 5 senna-docusate (PERICOLACE) 8.6-50 mg, Take 2 tablets by mouth 2 (two) times a day (Patient not taking: Reported on 06/29/2022), Disp: 60 tablet, Rfl: 2 History Family History Problem Relation Age of Onset Heart failure Other Family history of Congestive heart failure; Heart disease Other Family history of Heart disease; Osteoarthritis Other Family history of Osteoarthritis; Osteoporosis Other Family history of Osteoporosis; Heart attack Mother Heart attack Father Heart attack Sister Active Ambulatory Problems Diagnosis Date Noted Primary osteoarthritis of both knees 08/08/2018 Subchondral insufficiency fracture of condyle of left femur ([facility]) ([facility]) 08/30/2018 Closed fracture of left [...] of left knee as current injury 08/30/2018 Goiter 12/05/2019 Breast pain, right 02/01/2018 Cataract of right eye 06/22/2018 Diplopia 03/08/2018 Esotropia 03/08/2018 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 Skin lesion of breast 02/01/2018 Edema 04/04/2020 Intermittent claudication ([facility]) ([facility]) 04/04/2020 Iron deficiency anemia 04/04/2020 Peripheral vascular disease ([facility]) ([facility]) 04/04/2020 Pain due to total right knee replacement ([facility]) ([facility]) 04/28/2022 Hamstring tendinitis of right thigh 04/28/2022 Quadriceps weakness 04/28/2022 Resolved Ambulatory Problems Diagnosis Date Noted No Resolved Ambulatory Problems Past Medical History: Diagnosis Date Acute gastric ulcer without hemorrhage or perforation Alzheimer's dementia ([facility]) Asthma Back pain Cataract Clotting disorder ([facility]) ([facility]) Cramps of lower extremity Diverticulitis of colon Easy bruisability Fatigue Frequent urination Gastroesophageal reflux disease Hypothyroidism Incontinence of urine Muscle weakness Osteoarthritis Peptic ulcer Seizures ([facility]) ([facility]) 1997 SOB (shortness of breath) on exertion Vertigo Vision changes Visual disturbance Social History Tobacco Use Smoking status: Former Types: Cigarettes Start date: 1965 Quit date: 1966 Years since quittin.0 Smokeless tobacco: Never Substance and Sexual Activity Drug use: No Sexual activity: Defer Alcohol Use: Not At Risk Frequency of Alcohol Consumption: Monthly or less Average Number of Drinks: 3 or 4 Frequency of Binge Drinking: Never BASTING COLLAR BASTER documented in this encounter Plan of Treatment Upcoming Encounters Date Type Department Care Team (Latest Contact Info) Description 10/23/2024 10:00 AM JUMPBASTING COLLAR BASTER Hospital Encounter [facility] [address] [address] [place] [address] [place] [address] [address] [facility] [address] [place] [address] 10/23/2024 10:00 AM JUMPBASTING COLLAR BASTER - 10/23/2024 1:00 PM JUMPBASTING COLLAR BASTER Surgery [facility] [address] [address] [place] [address] [place] [address] [facility] [address] [place] [address] ARTHROPLASTY TOTAL KNEE LEFT Scheduled Procedures Name Priority Associated Diagnoses Date/Ti me ARTHROPLASTY TOTAL KNEE left knee osteoarthritis 10/23/2024 10:00 AM JUMPBASTING COLLAR BASTER ESOPHAGOGASTRODUODENOSCOPY Dysphagia, unspecified type documented as of this encounter Results * KARLA Reflex to Quantitative and dsDNA (10/26/2022 10:45 AM JUMPBASTING COLLAR BASTER) KARLA Negative Negative MARVIN FISHER Comment: Interpretive [...] on 20. Blood 10/26/2022 10:4 5 AM JUMPBASTING COLLAR BASTER 10/26/2022 10:45 AM JUMPBASTING COLLAR BASTER us Nayan Mahajan II, MD LAB BLOOD ORDERABLES Final R esult MARVIN FISHER [address] [address] [facility] [place] [address] * Methylmalonic acid, serum (10/26/2022 10:45 AM JUMPBASTING COLLAR BASTER) MMA 0.14 <=0.40 nmol/mL [facility] Comment: ADDITIONAL INFORMATION This test was developed and its performance characteristics determined by [facility] in a manner consistent with CLIA requirements. This test has not been cleared or approved by the U.S. Food and Drug Administration. Test Performed by: [facility] [place] [address] Rn Nursery: Byron Nance M.D. Ph.D.; CLIA# [id number] Blood 10/26/2022 10:4 5 AM JUMPBASTING COLLAR BASTER 10/26/2022 10:45 AM JUMPBASTING COLLAR BASTER us Nayan Mahajan II, MD LAB BLOOD ORDERABLES Final R esult Performing Organization Address [facility] de Phone Number MARVIN FISHER [address] [address] [employer] [place] [address] * Protein electrophoresis with reflex, serum (10/26/2022 10:45 AM JUMPBASTING COLLAR BASTER) Protein, sr 6.3 6.2 - 8.2 g/dL [...] [facility]ERNER CH Blood 10/26/2022 10:4 5 AM JUMPBASTING COLLAR BASTER 10/26/2022 10:45 AM JUMPBASTING COLLAR BASTER us Nayan Mahajan II, MD LAB BLOOD ORDERABLES Final R esult Performing Organization Address [facility] de Phone Number MARVIN FISHER [address] [address] [place] [address] * Zinc (10/26/2022 10:35 AM JUMPBASTING COLLAR BASTER) Pathologist [facility] Zinc 74 60 - 106 mcg/dL [facility] Comment: ADDITIONAL INFORMATION This test was developed and its performance characteristics determined by [facility] in a manner consistent with CLIA requirements. This test has not been cleared or approved by the U.S. Food and Drug Administration. Test Performed by: [facility] [address] [place] [address] Rn Nursery: Byron Nance M.D. Ph.D.; CLIA# [id number] Blood 10/26/2022 10:3 5 AM JUMPBASTING COLLAR BASTER 10/26/2022 10:35 AM JUMPBASTING COLLAR BASTER Nayan Mahajan II, MD LAB BLOOD ORDERABLES Final R esult Performing Organization Address [facility] de Phone Number [facility] [address] [address] [place] [address] * Erythrocyte sedimentation rate (10/26/2022 10:35 AM JUMPBASTING COLLAR BASTER) [facility] Erythrocyte sedimentation rate 5 1 - 20 mm/hr [facility] Blood 10/26/2022 10:3 5 AM JUMPBASTING COLLAR BASTER 10/26/2022 10:35 AM JUMPBASTING COLLAR BASTER Nyaan Mahajan II, MD LAB BLOOD ORDERABLES Final R esult Performing Organization Address [facility] de Phone Number [facility] [address] [address] [facility] [place] [address] * Vitamin E (10/26/2022 10:10 AM JUMPBASTING COLLAR BASTER) [facility] Tocopherol (Vit E) 10.8 5.5 - 17.0 mg/L [facility] Comment: ADDITIONAL INFORMATION This test was developed and its performance characteristics determined by [facility] in a manner consistent with CLIA requirements. This test has not been cleared or approved by the U.S. Food and Drug Administration. Test Performed by: [facility] [address] [place] [address] Rn Nursery: Byron Nance M.D. Ph.D.; CLIA# [id number] Blood 10/26/2022 10:1 0 AM JUMPBASTING COLLAR BASTER 10/26/2022 3:14 PM JUMPBASTING COLLAR BASTER Nayan Mahajan II, MD LAB BLOOD ORDERABLES Final R esult Performing Organization Address [facility] Co de Phone Number MARVIN FISHER [address] [address] [facility] [employer] [place], [place] [id number] * Folate (10/26/2022 10:10 AM JUMPBASTING COLLAR BASTER) Folic acid 5.4 >=5.0 ng/mL [facility] Comment:Hemolysis present. R esults may be affected. Blood 10/26/2022 10:1 0 AM JUMPBASTING COLLAR BASTER 10/26/2022 10:31 AM JUMPBASTING COLLAR BASTER Nayan Mahajan II, MD LAB BLOOD ORDERABLES Final R esult Performing Organization Address [facility] Co de Phone Number MARVIN [address] [address] [facility] [place] [address] * Vitamin B12 (10/26/2022 10:10 AM JUMPBASTING COLLAR BASTER) Vitamin B12 791 230 - 1,250 pg/mL [facility] Blood 10/26/2022 10:1 0 AM JUMPBASTING COLLAR BASTER 10/26/2022 10:31 AM JUMPBASTING COLLAR BASTER Nayan Mahajan II, MD LAB BLOOD ORDERABLES Final R esult Performing Organization Address [facility] Co de Phone Number MARVIN [address] [address] [facility] [place] [address] * EMG/NCV - (10/26/2022 9:39 AM JUMPBASTING COLLAR BASTER) Anatomical Region Laterality Modality EMG, EMG Narrative 10/26/2022 3:59 PM JUMPBASTING COLLAR BASTER This EMG nerve conduction velocity was performed for evaluation of numbness tingling and pain in both lower extremities. ?? A nerve conduction study of the right and left lower extremity was performed. ??In each right and left lower extremity the right and left superficial peroneal sural, tibial and peroneal nerves were examined. ?? This was followed by EMG examination of the left and right lower extremity using a concentric needle in the following muscles were sampled right and left vastus lateralis tibias anterior medial gastrocnemius upper middle lower lumbar paraspinal muscles. ?? Abnormalities on nerve conduction velocity test included the following 1. The bilateral sural sensory nerve action potentials were unobtainable 2. The left superficial peroneal sensory nerve action potential was unobtainable 3. There was a delay in the right superficial peroneal snap latency at 5.6 milliseconds. ??4. The compound muscle action potential amplitudes of the bilateral tibial nerves were decreased at 0.9 mV and 0.7 mV for the left tibial nerve at the ankle and knee respectively at 0.9 mV and 0.6 mV for the right tibial nerve at the ankle and knee respectively. ?? All the other nerve conduction studies and F-wave latencies were within normal limits. ?? EMG examination showed no evidence of any active or chronic denervation. 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 ??No evidence for lumbosacral radiculopathy. ?? Clinical correlation is recommended. 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) Numbness and tingling of both lower extremities Abnormality of gait and mobility Idiopathic peripheral neuropathy Unspecified hereditary and idiopathic peripheral neuropathy documented in this encounter Discontinued Medications Medication Sig Discontinue Reason Start Date End Da te donepeziL (ARICEPT) 10 mg tabletIndications: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
--- OUTSIDE RECORDS SUMMARY | 2024-10-11 01:58 | XMS_ITS | Encounter Summary ---
Author Organization [facility] Healthcare Address [address] [place] [address] Care Team Providers Care Wooden Tank Erector Name Role Phone Santino Funk MD Primary Care Provider + Unknown, Notinfile Unavailable Unavailable Santino Funk MD Unavailable [phone] Encounter Details Date Type Department Care Team (Late st Contact Info) Description 10/26/2022 10:05 AM [facility] HELPER Lab [address] [address] Social History Tobacco Use Types Packs/Day [...] relatives? Three times a week 11/25/2021 Attends [employer] Not on file 11/25 Active Member [...] place to sleep or slept in a residential (including now)? No 11/25/2021 Sex and Gender Information Value Date Recorded Sex Assigned at Not on file Legal Sex Male 3:25 PM BAKER HELPER Gender Identity Not on file Sexual Orientation Not on file documented as of this encounter Plan of Treatment Upcoming Encounters Date Type Department Care Team (Latest Contact Info) Description 10/23/2024 10:00 AM [facility] Hospital Encounter [facility] Operating Room [id number] [place] [address] [place] [id number] [place] [address] 10/23/2024 10:00 AM BAKER HELPER - 10/23/2024 1:00 PM BAKER HELPER Surgery [facility] Operating Room [address] [place] [address] [place] [address] [facility] [address] [place], [place] [id number] ARTHROPLASTY TOTAL KNEE LEFT Scheduled Procedures Name Priority Associated Diagnoses Date/Ti me ARTHROPLASTY TOTAL KNEE left knee osteoarthritis 10/23/2024 10:00 AM BAKER HELPER ESOPHAGOGASTRODUODENOSCOPY Dysphagia, unspecified type documented as of this encounter Procedures Procedure Name Priority Date/Time Associated Diagnosis Comments EGFR Routine 10/26/2022 10:10 AM BAKER HELPER LIPID PANEL Routine 10/26/2022 10:10 AM BAKER HELPER COMPREHENSIVE METABOLIC PANEL Routine 10/26/2022 10:10 AM BAKER HELPER documented in this encounter Results * eGFR (10/26/2022 10:10 AM BAKER HELPER) Pathologist [facility] eGFR 64 mL/min/1. 73 m2 MARVIN FISHER Comment: Interpretive [...] interpretive data was last reviewed 2021. Blood 10/26/2022 10:1 0 AM BAKER HELPER 10/26/2022 10:45 AM BAKER HELPER us Santino Funk MD LAB BLOOD ORDERABLES Fin al Result Performing Organization Address City/State/ZIP [place] Phone Number MARVIN [address] [place] [address] * (ABNORMAL) Lipid panel (10/26/2022 10:10 AM BAKER HELPER) Cholesterol 209(H) 30 - 199 mg/dL MARVIN FISHER Comment: [...] Data was last revised on 2018. Triglycerides 96 <=149 mg/dL MARVIN FISHER Comment: Interpretive Data [...] Data was last revised on 2018. HDL 62 >=40 mg/dL MARVIN FISHER Comment: Interpretive Data [...] was last revised on 2018. LDL, calculated 128 <=129 mg/dL MARVIN FISHER Comment: Interpretive Data [...] was last revised on 2018. Non-HDL Cholesterol 147 mg/dL MARVIN FISHER Comment: Interpretive Data Ages [...] 2018. Chol/HDL ratio 3 [facility] Blood 10/26/2022 10:1 0 AM BAKER HELPER 10/26/2022 10:31 AM BAKER HELPER us Santino Funk MD LAB BLOOD ORDERABLES Fin al Result [facility] [address] [address] [place] [address] * Comprehensive metabolic panel (10/26/2022 10:10 AM BAKER HELPER) Sodium 140 135 - 145 mmol/L [facility] Potassium, pl 4.4 3.3 - 4.9 mmol/L [facility] Chloride 107 97 - 110 mmol/L [facility] CO2 24 22 - 32 mmol/L [facility] Anion gap 9 2 - 15 mmol/L [facility] BUN 17 8 - 25 mg/dL [facility] Creatinine 1.16 0.80 - 1.30 mg/dL [facility] Glucose 103 70 - 199 mg/dL [facility] Comment: [...] 2022. Calcium 8.8 8.5 - 10.3 mg/dL [facility] Bilirubin, total 0.6 0.1 - 1.2 mg/dL [facility] Protein, pl 6.7 6.5 - 8.5 g/dL [facility] Albumin 3.8 3.5 - 5.0 g/dL [facility] Alk phos 127 40 - 130 Units/L [facility] ALT 21 7 - 55 Units/L [facility] AST 20 10 - 50 Units/L [facility] Blood 10/26/2022 10:1 0 AM BAKER HELPER 10/26/2022 10:31 AM BAKER HELPER us Santino Funk MD LAB BLOOD ORDERABLES Fin al Result [facility] [address] [address] [place] [address] documented in this encounter Visit Diagnoses Not on filedocumented in this encounter Care Teams Wooden Tank Erector Relationship Specialty [place] [address] [address] [facility] [address] PCP - General Internal Medicine 09/30/22 05/04/23 Unknown, Notinfile 03/12/22 [place] [address] [address] [facility] [place] [address] 03/12/22 documented as of this encounter
--- OUTSIDE RECORDS SUMMARY | 2024-10-11 01:58 | XMS_ITS | Encounter Summary ---
Author Organization [facility] Address [address] [facility] [address] [place] [address] Care Team Providers Care Coil Machine Operator Name Role Phone Santino Funk MD Primary Care Provider + Unknown, Notinfile Unavailable Unavailable Santino Funk MD Unavailable [phone] Reason for Visit * Diagnostic Imaging (Routine) - Closed Specialty Diagnoses / Procedures Referred By Contac t Referred To Contact Diagnoses Left shoulder pain, unspecified chronicity Procedures XR Shoulder Left 4 Views Jsosie Montalvo [place] [id number] [place] [address] Phone: tel: fax: [facility] Referral ID Status Reason Start Date Expiration Date Visits Re quested Visits Authorized [id number] Closed 03/23/2023 04/21/2024 1 1 Encounter Details Date Type Department Care Team (Latest Contact Info) Description 03/23/2023 8:37 AM CDT - 03/23/2023 11:59 PM CDT Hospital Encounter [facility] [address] [address] Discharge Disposition: Discharge to home [...] relatives? Three times a week 11/25/2021 Attends [employer] Not on file 11/25 Active Member [...] on file Legal Sex Male 3:25 PM SUPPLY CLERK Gender Identity Not on file Sexual [...] needed for pain 30 tablet 10/03/[address] (VOLTAREN) 50 mg EC tablet Take 1 tablet by mouth twice daily as needed for pain 60 tablet 03/23/2023 3 donepeziL (ARICEPT) 10 mg tabletIndications :Late [...] (Latest Contact Info) Description 10/23/2024 10:00 AM [facility] Hospital Encounter [facility] Operating Room [address] [place] [address] [place] [address] [id number] 10/23/2024 10:00 AM SUPPLY CLERK - 10/23/2024 1:00 PM SUPPLY CLERK Surgery [facility] Operating Room [address] [place] [address] [place] [address] [facility] [address] [place] [address] ARTHROPLASTY TOTAL KNEE LEFT Scheduled Procedures Name Priority Associated Diagnoses Date/Ti me ARTHROPLASTY TOTAL KNEE left knee osteoarthritis 10/23/2024 10:00 AM SUPPLY CLERK ESOPHAGOGASTRODUODENOSCOPY Dysphagia, unspecified type documented as of this encounter Procedures Procedure Name Priority Date/Time Associated Diagnosis Comments XR SHOULDER LEFT 2 OR MORE VIEWS Schedule Routine, Read Routine (OP Routine) 03/23/2023 8:59 AM CDT 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 documented in this encounter Results * XR Shoulder Left 4 Views (03/23/2023 8:59 AM CDT) Anatomical Region Laterality Modality Upper Extremities, Shoulder Left Comp uted Radiography Narrative 03/23/2023 1:02 PM CDT Left shoulder four views demonstrates the osseous and soft tissue structures to be normal Jossie SANDOVAL IMG XR PROCEDURES Final Resul t documented in this encounter Visit Diagnoses Not on filedocumented in this encounter Care Teams Coil Machine Operator Relationship Specialty [place] [address] [address] [facility] [place] [address] PCP - General Internal Medicine 09/30/22 05/04/23 Unknown, Notinfile 03/12/22 [place] [address] [facility] [place] [address] 03/12/22 documented as of this encounter
--- OUTSIDE RECORDS SUMMARY | 2024-10-11 01:58 | XMS_ITS | Encounter Summary ---
Author Organization [facility] Address [address] [place] [address] Care Team Providers Care Incising Machine Operator Name Role Phone Santino Funk MD Primary Care Provider + Unknown, Notinfile Unavailable Unavailable Santino Funk MD Unavailable [phone] Reason for Referral * Neurology (Routine) - Closed Specialty Diagnoses / Procedures Referred By Dillan mccallum Referred To Contact Diagnoses Abnormality of gait and mobility Idiopathic peripheral neuropathy Procedures EMG/[place] [address] [address] [address] Phone: tel: fax: [address] [address] Referral ID Status Reason Start Date Expiration Date Visits Re quested Visits Authorized [id number] Closed 09/30/2022 10/30/2023 1 1 GOODS PRESS HAND Reason for Visit * Neurology (Routine) - Closed Specialty Diagnoses / Procedures Referred By Dillan mccallum Referred To Contact Diagnoses Abnormality of gait and mobility Idiopathic peripheral neuropathy Procedures EMG/[place] [address] [address] [address] Phone: tel: fax: [address] [phone] Referral ID Status Reason Start Date Expiration Date Visits Re quested Visits Authorized [id number] Closed 09/30/2022 10/30/2023 1 1 Encounter Details Date Type Department Care Team (Latest Contact Info) Description 10/26/2022 7:57 AM [facility] [employer] [facility] - 10/26/2022 11:59 PM [facility] [employer] [facility] Hospital Encounter [facility] Neurology Testing [address] [place] [address] Abnormality of gait and mobility; Idiopathic peripheral neuropathy Discharge Disposition: Discharge to home or self [...] in a penitentiary (including now)? 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) Take 1 tablet (10 mg total) by mouth nightly 30 tablet 5 09/30/2022 3 lidocaine (ASPERCREME) 4 % adhesive patch,medicated [...] Take 1 tablet by mouth nightly 4 senna-docusate (PERICOLACE) 8.6-50 mgIndications:con stipation Take 2 tablets by mouth 2 (two) times a day 60 tablet 2 11/26/2021 3 sildenafiL, pulm.hypertension , (REVATIO) 20 mg tablet Take 1 tablet (20 mg total) by mouth daily 04/17/2022 4 tiZANidine (ZANAFLEX) 2 mg tablet Take 2 tablets (4 mg total) by mouth nightly 1 to 2 tablets at bedtime 60 tablet 5 03/11/2022 3 traMADoL (ULTRAM) 50 mg tablet Take 1 tablets every 6 hours as needed for pain. 20 tablet 08/25/2022 3 traZODone (DESYREL) 50 mg tablet Take by [...] (Latest Contact Info) Description 10/23/2024 10:00 AM [facility] [employer] Hospital Encounter [facility] Operating Room [address] [place] [address] [place] [address] [address] 10/23/2024 10:00 AM [employer] - 10/23/2024 1:00 PM KNIT [employer] Surgery [facility] Operating Room [address] [place] [address] [place] [address] [id number] ARTHROPLASTY TOTAL KNEE LEFT Scheduled Procedures Name Priority Associated Diagnoses Date/Ti me ARTHROPLASTY TOTAL KNEE left knee osteoarthritis 10/23/2024 10:00 AM K[employer] ESOPHAGOGASTRODUODENOSCOPY Dysphagia, unspecified type documented as of this encounter Procedures Procedure Name Priority Date/Time Associated Diagnosis Comments EMG/NCV Routine 10/26/2022 9:39 AM KNIT [employer] PR[employer] HAND Abnormality of gait and mobility Idiopathic peripheral neuropathy documented in this encounter Results * EMG/NCV - (10/26/2022 9:39 AM KNIT GOODS PR[employer] HAND) Anatomical Region Laterality Modality EMG, EMG Narrative 10/26/2022 3:59 PM KNIT GOODS PR[employer] HAND This EMG nerve conduction velocity was performed [...] lumbosacral radiculopathy. ?? Clinical correlation is recommended. Nayan Mahajan II, MD NEUROLOGY ORDERABLES Final R esult documented in this encounter Visit Diagnoses Diagnosis Abnormality of gait and mobility Idiopathic peripheral neuropathy Unspecified hereditary and idiopathic peripheral neuropathy documented in this encounter Care Teams Incising Machine Operator Relationship Specialty [place] [address] [address] [address] PCP - General Internal Medicine 09/30/22 05/04/23 Unknown, Notinfile 03/12/22 [place] [address] [address] [address] 03/12/22 documented as of this encounter
--- OUTSIDE RECORDS SUMMARY | 2024-10-11 01:58 | XMS_ITS | Encounter Summary ---
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 Biceps tendinitis of left upper extremity Procedures Large Joint (Hip, Knee, Shoulder) Injection: [place] [address] [address] [place] [address] Phone: tel: fax: [facility] Referral ID Status Reason Start Date Expiration Date Visits Re quested Visits Authorized [id number] Closed 03/23/2023 04/21/2024 1 1 * Procedure (Routine) - Closed Specialty Diagnoses / Procedures Referred By Contac t Referred To Contact Diagnoses Primary osteoarthritis of both knees Procedures Large Joint (Hip, Knee, Shoulder) [place]jection: [place] [address] [address] [place] [address] Phone: tel: fax: [facility] Referral ID Status Reason Start Date Expiration Date Visits Re quested Visits Authorized [id number] Closed 03/23/2023 04/21/2024 1 1 * Diagnostic Imaging (Routine) - Closed Specialty Diagnoses / Procedures Referred By Contac t Referred To Contact Diagnoses Left shoulder pain, unspecified chronicity Procedures XR Shoulder Left [place] [address] [address] Phone: tel: fax: [facility] Referral ID Status Reason Start Date Expiration Date Visits Re quested Visits Authorized [id number] Closed 03/23/2023 04/21/2024 1 1 Reason for Visit * Reason Comments Pain Injections Encounter Details Date Type Department Care Team (Latest Contact Info) Description 03/23/2023 8:15 AM CDT Office Visit [facility] Orthopedics & Sports Medicine at [facility] [id number] [place] [phone] [place] [address] [place] [address] 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 Three times a week 11/25/2021 Attends [employer] Services Not on file 11/25 Active Member [...] slept in a retirement (including now)? No 11/25/2021 Sex and Gender Information Value Date Recorded Sex Assigned at Not on file Legal Sex Male 3:25 PM DIRECTOR INTERNATIONAL Gender Identity Not on file Sexual Orientation Not on file documented as of this encounter Last Filed Vital Signs Vital Sign Reading Time Taken Comments Blood Pressure - - Pulse - - Temperature - - Respiratory Rate - - Oxygen Saturation - - Inhaled Oxygen Concentration - - Weight 105.2 kg (232 lb) 03/23/2023 8:23 AM CDT Height 177.8 cm (5' 10 ) 03/23/2023 8:23 AM CDT Body Mass Index 33.29 03/23/2023 8:23 AM CDT documented in this encounter Progress Notes * Jossie Montalvo PA - 03/23/2023 8:15 AM CDTAssociated Order(s): Large Joint (Hip, Knee, Shoulder) Injection: L knee; Large Joint (Hip, Knee, Shoulder) Injection: L subacromial bursa Post-Procedure Diagnose(s): Primary osteoarthritis of both knees; 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 FOLLOW UP WITH INJECTION Subjective CHIEF COMPLAINT He had concerns including Pain of the Left Shoulder and Injections of the Left Knee. HISTORY OF PRESENT ILLINESS This is a follow-up visit for left knee arthritis and also for left shoulder pain. Patient receivesinjections periodically for his left knee and wishes to have the left knee injected again today. Heis not interested in surgery at this time, although he states his right knee is doing as well as itever has with no pain and only minimal swelling in both ankles. His left shoulder has bothered him for 2-3 months without trauma or injury. He feels he just woke up with this pain. Denies numbness ortingling, pain localizes to the deltoid and is worsened with movement, lifting and reaching. He is difficulty sleeping at night secondary to the pain. He is had no treatment for this so far. 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 MEDICATIONS He has a current medication list which includes the following prescription(s): acetaminophen, albuterol hfa, capsaicin, cholecalciferol, donepezil, gabapentin, levothyroxine, magnesium oxide, mirtazapine, omeprazole, oxybutynin xl, polyethylene glycol, senna-docusate, sildenafil (pulm.hypertension), tamsulosin, tizanidine, tramadol, trazodone, turmeric root extract, UNABLE TO FIND, diclofenac dr,and lidocaine. ALLERGIES He has No Known Allergies. Review of Systems Constitutional: Negative for diaphoresis and unexpected weight change. HENT: Negative for drooling, ear pain and sore throat. Eyes: Negative for photophobia, discharge and visual disturbance. Respiratory: Negative for apnea, choking and shortness of breath. Cardiovascular: Positive for leg swelling. Negative for chest pain. Gastrointestinal: Negative for abdominal distention, abdominal pain and vomiting. Endocrine: Negative for cold intolerance and heat intolerance. Genitourinary: Negative for dysuria and flank pain. Musculoskeletal: Positive for joint swelling and myalgias. Negative for gait problem and neck pain. Skin: Negative for color change and rash. Allergic/Immunologic: Negative for immunocompromised state. Neurological: Negative for dizziness, speech difficulty and weakness. Hematological: Negative for adenopathy. Psychiatric/Behavioral: Negative for decreased concentration and hallucinations. PHYSICAL EXAM Left shoulder Inspection Erythema: absent Edema: absent Effusion: absent Swelling: absent Skin temperature: normal Atrophy: absent AC joint deformity: absent Scapular winging: absent Abrasion: absent Surgical scar/wound is absent. Scapulothoracic motion: normal Posture, chin forward: normal Posture, rounded shoulders: normal Palpation Tenderness is present. The patient has tenderness in the anterior shoulder, biceps tendon and lateral shoulder area(s). Range of motion The patient has reduced range of motion of the left shoulder. The patient has pain with range of motion of the left shoulder. Active forward flexion: 120. The patient has pain with active forward flexion . Active extension: 50. The patient has pain with active extension. Active internal rotation at 90 degrees: 80. Active external rotation at 90 degrees: 50. The patienthas pain with active external rotation at 90 degrees. Active abduction: 90. The patient has pain with active abduction. Passive forward flexion: 150. Patient has pain with passive forward flexion. Passive abduction: 140. The patient has pain with passive abduction. Stability The patient has normal stability of the left shoulder. Strength The patient has 5/5 strength throughout. Abduction: 3/5 and painful Internal rotation: 4/5 and painful External rotation: 5/5 and painful Scapular stabilizers: 5/5 Supraspinatus: 3/5 and painful Lower trapezius: 5/5 and pain free Deltoid: 5/5 and painful Bicep: 3/5 and painful Neurovascular The patient has normal vascular on the left side of their body. The patient has normal sensation on the left side of their body. Tests Apprehension: negative Belly press: negative Cross arm: positive Drop arm: negative Impingement signs: positive Lift-off: negative Neer's: positive Speed's: positive Left knee Inspection Erythema: absent Cellutlis: absent Swelling: mild Effusion: absent Surgical scar/wound: absent. Alignment: varus Gait: normal Palpation Tenderness: present. The tenderness is located in the medial hamstring and medial joint line. Crepitus: negative Patella grind: negative Range of motion The patient has normal range of motion of the left knee. Active extension: 0 Active flexion: 121-125 Flexion contracture: no. Extensor lag: no. Stability Varus stress at 0 degrees: stable Valgus stress at 0 degrees: stable Varus stress at 30 degrees: stable Valgus stress at 30 degrees: stable Joanna: negative Anterior drawer: negative Posterior drawer: negative Strength The patient has 5/5 strength throughout. Neurovascular The patient has normal vascular on the left side of their body. The patient has normal sensation on the left side of their body. Special tests Patellar apprehension: negative REVIEW OF X-RAYS/STUDIES/LABS (IF ORDERED) XR Shoulder Left 4 Views Left shoulder four views demonstrates the osseous and soft tissue structures to be normal Assessment/Plan Abrahan was seen today for pain and injections. 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 - XR Shoulder Left 4 Views - Ambulatory referral order to Physical Therapy -; Future Biceps tendinitis of left upper extremity - Ambulatory referral order to Physical Therapy -; Future Primary osteoarthritis of both knees Hx of total knee replacement, right Other orders - Large Joint (Hip, Knee, Shoulder) Injection - Large Joint (Hip, Knee, Shoulder) Injection Plan Exam findings and x-rays were discussed with the patient, he is signs consistent with left shoulderbiceps tendinitis and rotator cuff tendinitis versus partial- thickness tear, longstanding left kneearthritis -he was offered injection and therapy for the left shoulder and has agreed to proceed with this -left knee was also injected today, follow up as needed for further injections -he will follow up here in 6 weeks, if he is not significantly improved from the shoulder injectiontherapy, MRI scan can be ordered Pertinent exam, laboratory and imaging findings were discussed. All questions were all addressed during the office visit. Treatment plan was explained in detail and the patient voiced understanding. Follow up appointment scheduled as discussed, they may call the office with any additional concerns as needed. Large Joint (Hip, Knee, Shoulder) Injection: L knee Performed by: Jossie Montalvo PA Authorized by: Jossie Montalvo PA Large Joint Injection/Aspiration: Consent Given by: Patient Site marked: the procedure site was marked Verbal consent obtained: Yes Supporting Documentation: Indications: Pain Procedure Details: Location: Knee Site: L knee Prep: patient was prepped and draped in usual sterile fashion Medications: 4 mL lidocaine 10 mg/mL (1 %); 80 mg methylPREDNISolone acetate 40 mg/mL Patient tolerance: Patient tolerated the procedure well with no immediate complications Large Joint (Hip, Knee, Shoulder) Injection: L subacromial bursa Performed by: Jossie Montalvo PA Authorized by: Jossie Montalvo PA Large Joint Injection/Aspiration: Consent Given by: Patient Verbal consent obtained: Yes Supporting Documentation: Indications: Pain Procedure Details: Location: Shoulder Site: L subacromial bursa Needle Size: 22 G Approach: Posterior Medications: 80 mg methylPREDNISolone acetate 40 mg/mL; 4 mL lidocaine 10 mg/mL (1 %) Patient tolerance: Patient tolerated the procedure well with no immediate complications LORI Craig documented in this encounter Plan of Treatment Upcoming Encounters Date Type Department Care Team (Latest Contact Info) Description 10/23/2024 10:00 AM DIRECTOR INTERNATIONAL Hospital Encounter [facility] Operating Room [address] [place] [id number] [place] [address] [address] 10/23/2024 10:00 AM DIRECTOR INTERNATIONAL - 10/23/2024 1:00 PM DIRECTOR INTERNATIONAL Surgery [facility] Operating Room [address] [place] [id number] [place] [address] [address] ARTHROPLASTY TOTAL KNEE LEFT Scheduled Procedures Name Priority Associated Diagnoses Date/Ti me ARTHROPLASTY TOTAL KNEE left knee osteoarthritis 10/23/2024 10:00 AM DIRECTOR INTERNATIONAL ESOPHAGOGASTRODUODENOSCOPY Dysphagia, unspecified type documented as of this encounter Procedures Procedure Name Priority Date/Time Associated Diagnosis Comments XR SHOULDER LEFT 2 OR MORE VIEWS Schedule Routine, Read Routine (OP Routine) 03/23/2023 8:59 AM CDT 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 AR ARTHROCENTESIS ASPIR&/INJ MAJOR JT/BURSA W/O US Routine 03/23/2023 8:15 AM CDT 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 Biceps tendinitis of left upper extremity AR ARTHROCENTESIS ASPIR&/INJ MAJOR JT/BURSA W/O US Routine 03/23/2023 8:15 AM CDT Primary osteoarthritis of both knees documented in this encounter Results * XR Shoulder Left 4 Views (03/23/2023 8:59 AM CDT) Anatomical Region Laterality Modality Upper Extremities, Shoulder Left Comp uted Radiography Narrative 03/23/2023 1:02 PM CDT Left shoulder four views demonstrates the osseous and soft tissue structures to be normal us Jossie SANDOVAL IMG XR PROCEDURES Final Resul t * AR ARTHROCENTESIS ASPIR&/INJ MAJOR JT/BURSA W/O US (03/23/2023 8:15 AM CDT) Narrative Jossie Montalvo PA - 03/23/2023 8:15 AM CDT Jossie Montalvo PA ? 03/23/2023 ??1:12 PM Large Joint (Hip, Knee, Shoulder) Injection: L subacromial bursa Performed by: Jossie Montalvo PA Authorized by: Jossie Montalvo PA ?? Large Joint Injection/Aspiration: ??Consent Given by: ??Patient ??Verbal consent obtained: Yes ?? Supporting Documentation: ??Indications: ??Pain Procedure Details: ??Location: ??Shoulder ??Site: ??L subacromial bursa ??Needle Size: ??22 G ??Approach: ??Posterior ??Medications: ??80 mg methylPREDNISolone acetate 40 mg/mL; 4 mL lidocaine 10 mg/mL (1 %) ??Patient tolerance: ??Patient tolerated the procedure well with no immediate complications Jossie SANDOVAL IN CLINIC/BEDSIDE ORDERABLES Final Result * AR ARTHROCENTESIS ASPIR&/INJ MAJOR JT/BURSA W/O US (03/23/2023 8:15 AM CDT) Narrative Jossie Montalvo PA - 03/23/2023 8:15 AM CDT Jossie Montalvo PA ? 03/23/2023 ??1:12 PM Large Joint (Hip, Knee, Shoulder) Injection: L knee Performed by: Jossie Montalvo PA Authorized by: Jossie Montalvo PA ?? Large Joint Injection/Aspiration: ??Consent Given by: ??Patient ??Site marked: the procedure site was marked ?Verbal consent obtained: Yes ?? 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- Primary Biceps tendinitis of left upper extremity Primary osteoarthritis of both knees Hx of total knee replacement, right documented in this encounter Administered Medications Inactive Administered Medications - up to 3 most recent administrations Medication Order MAR Action Action Date Dose Rate Site lidocaine (XYLOCAINE) 10 mg/mL (1 %) injection 4 mL 4 mL, One-Time Injection, Starting on Wed03/23/23 at 1312, For 1 dose, Indications: Administration of Local AnesthesiaIndications:Adminis tration of Local Anesthesia Given 03/23/2023 1:12 PM CDT 4 mL Left Knee lidocaine (XYLOCAINE) 10 mg/mL (1 %) injection 4 mL 4 mL, One-Time Injection, Starting on Wed03/23/23 at 1312, For 1 dose, Indications: Administration of Local AnesthesiaIndications:Adminis tration of Local Anesthesia Given 03/23/2023 1:12 PM CDT 4 mL Left Shoulder methylPREDNISolone acetate (DEPO-medrol) injection 80 mg 80 mg, intra-articular, One-Time Injection, Starting on Wed03/23/23 at 1312, For 1 doseIndications:Primary osteoarthritis of both knees Given 03/23/2023 1:12 PM CDT 80 mg Left Knee methylPREDNISolone acetate (DEPO-medrol) injection 80 mg 80 mg, intra-articular, One-Time Injection, Starting on Wed03/23/23 at 1312, For 1 doseIndications: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 albuterol HFA (PROVENTIL HFA,VENTOLIN HFA,PROAIR HFA) 90 mcg/actuation inhaler 2 puffs every 4 (four) hours as needed 02/03/2023 added in this encounter Care Teams Stemmer Machine Relationship Specialty [place] [id number] [address] PCP - General Internal Medicine 09/30/22 05/04/23 Unknown, Notinfile 03/12/22 [place] [address] [address] [address] 03/12/22 documented as of this encounter
--- OUTSIDE RECORDS SUMMARY | 2024-10-11 01:58 | XMS_ITS | Encounter Summary ---
Author Organization [facility] Address [address] [facility] [address] [place] [address] Care Team Providers Care Weaving Instructor Name Role Phone No, Physician Primary Care Provider [phone] Unknown, Notinfile Unavailable Unavailable Santino Funk MD Unavailable [phone] Reason for Referral * Procedure (Routine) - Closed Specialty Diagnoses / Procedures Referred By Contac t Referred To Contact Diagnoses Primary osteoarthritis of both knees Procedures Large Joint (Hip, Knee, Shoulder) Injection: [place] [address] [address] Phone: tel: fax: [facility] Referral ID Status Reason Start Date Expiration Date Visits Re quested Visits Authorized [id number] Closed 08/25/2022 09/24/2023 1 1 NSING REPRESENTATIVE Reason for Visit * Reason Comments Pain Last inj. 05/19/22 Injections Last inj. 05/19/22 Pain Encounter Details Date Type Department Care Team (Latest Contact Info) Description 08/25/2022 8:00 AM LICENSING REPRESENTATIVE Office Visit [facility] [address] [address] [place] [address] [address] Edema of both lower extremities due to peripheral venous insufficiency (Primary Dx); Primary osteoarthritis of both knees; Hx of [...] slept in a mcc (including now)? No 11/25/2021 Sex and Gender Information Value Date Recorded Sex Assigned at Not on file Legal Sex Male 3:25 PM LICENSING REPRESENTATIVE Gender Identity Not on file Sexual Orientation Not on file documented as of this encounter Last Filed Vital Signs Vital Sign Reading Time Taken Comments Blood Pressure - - Pulse - - Temperature - - Respiratory Rate - - Oxygen Saturation - - Inhaled Oxygen Concentration - - Weight 101.4 kg (223 lb 9.6 oz) 08/25/2022 7:59 AM LICENSING REPRESENTATIVE Height 180.3 cm (5' 10.98 ) 08/25/2022 7:[address] Body Mass Index 31.2 08/25/2022 7:59 AM LICENSING REPRESENTATIVE documented in this encounter Ordered Prescriptions Prescription Sig Dispense Quantity Refills Last Filled Start Date End Date traMADoL (ULTRAM) 50 mg tablet Take 1 tablets every 6 hours as needed for pain. 20 tablet 08/25/2022 3 documented in this encounter Progress Notes * Jossie Montalvo PA - 08/25/2022 8:00 AM CSTAssociated Order(s): Large Joint (Hip, Knee, Shoulder) Injection: L knee Post-Procedure Diagnose(s): Primary osteoarthritis of both knees Images from the original note were not included. FOLLOW UP WITH INJECTION Subjective CHIEF COMPLAINT He had concerns including Pain and Injections of the Left Knee (Last inj. 05/19/22) and Pain of theRight Knee. HISTORY OF PRESENT ILLINESS This is a follow-up visit for bilateral knee pain. The patient did undergo right total knee arthroplasty 11/24/2021. He states he does still have some residual pain in the knee, most notably after hesits for while and then tries to get up. He reports he walks with a significantly antalgic gait which gets better as he walks, the problem is when he sits down it stiffens back up which he finds frust rating. He did have his knee aspirated 3 months ago and checked for Synovasure, this was all negative for any evidence of infection. He is been started on meloxicam which he does not find to be helpful for this problem, switched to diclofenac with questionable benefit. Denies any locking or instability, states he has swelling in both of his legs which is longstanding. He had doppler studies done and was given a prescription for thigh-high compression stockings, has not picked those up yet. The left knee is arthritic, he had been considering knee replacement surgery early next year. This knee stiffens and swells, has pain with weight-bearing. He would like an injection in the knee today. His other primary complaint today is bilateral lower extremity swelling, left worse than right. This is been a chronic problem and predates his knee replacement surgery. He is wearing compression stockings which does help some, however he finds the stockings actually bother his feet somewhat. He saw Dr. Mcnamara a couple of months ago and was evaluated for this. He was prescribed thigh-high compression stockings and anticipates picking those up soon, has not yet picked him up due to cost. He is anticipating getting some [id number] arch supports because he stands and walks all day on concrete surfaces at [employer] where he works. MEDICATIONS He has a current medication list which includes the following prescription(s): cholecalciferol, diclofenac dr, donepezil, levothyroxine, magnesium oxide, mirtazapine, omeprazole, oxybutynin xl, polyethylene glycol, senna-docusate, senna-docusate, sildenafil (pulm.hypertension), tamsulosin, tizanidine, tramadol, trazodone, turmeric root extract, and UNABLE TO FIND. ALLERGIES He has No Known Allergies. Review [...] dysuria and flank pain. Musculoskeletal: Positive for arthralgias, joint swelling and myalgias. Negative for gait problem and neck pain. Skin: Negative for color change and rash. Allergic/Immunologic: Negative for immunocompromised state. Neurological: Negative for dizziness, speech difficulty and weakness. Hematological: Negative for adenopathy. Psychiatric/Behavioral: Negative for decreased concentration and hallucinations. PHYSICAL EXAM Right knee Inspection Erythema: absent Cellulitis: absent Swellin+ effusion Surgical scar/wound: present. The surgical scar/wound is healed. Skin temperature: normal Alignment: neutral Gait: antalgic Palpation Tenderness: absent. Patellar tracking: normal Crepitus: negative Patella grind: negative Subluxation: negative Range of motion Active extension: 5 Active flexion: 121-125 Flexion contracture: no. Extensor lag: no. Stability AP stability: stable Varus stress at 0 degrees: stable Valgus stress at 0 degrees: stable Varus stress at 30 degrees: stable Valgus stress at 30 degrees: stable Pivot shift: negative Joanna: negative Anterior drawer: negative Posterior drawer: negative Strength The patient has 5/5 strength thoughout right knee. Neurovascular The patient has normal vascular on the right side of their body. The patient has normal sensation on the right side of their body. Special tests Zoila: medial negative lateral positive Patellar apprehension: negative Patellar J-sign: negative Posterior sag: negative Comments: Right knee has no redness or warmth. Small joint effusion is appreciated. He can extend within 5?? of full and flex further to 125??. No gross laxity with varus or valgus testing. Bilaterallower extremity edema is noted consistent with venous insufficiency, no calf tenderness, or palpable cords. Left knee Inspection Erythema: absent Cellutlis: absent Swelling: moderate Effusion: none Skin temperature: normal Alignment: neutral Gait: antalgic Palpation Tenderness: absent. Patellar tracking: normal Crepitus: negative Patella grind: negative Range of motion Active extension: 0 Active flexion: 121-125 Flexion contracture: no. Extensor lag: no. Stability Varus stress at 0 degrees: stable Valgus stress at 0 degrees: stable Varus stress at 30 degrees: stable Valgus stress at 30 degrees: stable Pivot shift: negative Joanna: negative Anterior drawer: negative Posterior drawer: negative Strength The patient has 5/5 strength throughout. Neurovascular The patient has normal vascular on the left side of their body. The patient has normal sensation on the left side of their body. Special tests Zoila: medial negative lateral negative Patellar apprehension: negative Patella J-sign: negative Posterior sag: negative REVIEW OF X-RAYS/STUDIES/LABS (IF ORDERED) Assessment/Plan Abrahan was seen today for pain, injections and pain. Diagnoses and all orders for this visit: Edema of both lower extremities due to peripheral venous insufficiency Primary osteoarthritis of both knees Hx of total knee replacement, right Other orders - traMADoL (ULTRAM) 50 mg tablet; Take 1 tablets every 6 hours as needed for pain. - Large Joint (Hip, Knee, Shoulder) Injection Plan Patient is 9 months from right total knee replacement, states he really is not having pain in the knee but does still have stiffness and swelling. Prior Synovasure testing was negative. I recommendedhe get the prescribed thigh-high compression stockings to reduce overall edema in the leg and continue with his anti-inflammatory. He will follow up in 3 months for x-ray of the knees at that time. The left knee was injected today under sterile conditions without complication. Limited quantity of tramadol was given for nighttime use as his job requires prolonged periods of standing. He will continue with diclofenac and Tylenol during the day. Large Joint (Hip, Knee, Shoulder) Injection: L [...] well with no immediate complications LORI Craig Cosigned by George Sepulveda MD at 08/25/2022 3:23 PM LICENSING REPRESENTATIVE NSING REPRESENTATIVE NSING REPRESENTATIVE documented in this encounter Plan of Treatment Upcoming Encounters Date Type Department Care Team (Latest Contact Info) Description 10/23/2024 10:00 AM LICENSING REPRESENTATIVE Hospital Encounter [facility] Operating Room [address] [place] [address] [place] [address] [facility] [address] [place] [address] 10/23/2024 10:00 AM LICENSING REPRESENTATIVE - 10/23/2024 1:00 PM LICENSING REPRESENTATIVE Surgery [facility] Operating Room [address] [place] [address] [place] [address] [facility] [address] [place] [address] ARTHROPLASTY TOTAL KNEE LEFT Scheduled Procedures Name Priority Associated Diagnoses Date/Ti me ARTHROPLASTY TOTAL KNEE left knee osteoarthritis 10/23/2024 10:00 AM LICENSING REPRESENTATIVE ESOPHAGOGASTRODUODENOSCOPY Dysphagia, unspecified type documented as of this encounter Procedures Procedure Name Priority Date/Time Associated Diagnosis Comments [place] ARTHROCENTESIS ASPIR&/INJ MAJOR JT/BURSA W/O US Routine 08/25/2022 8:00 AM LICENSING REPRESENTATIVE Primary osteoarthritis of both knees documented in this encounter Results * [place] ARTHROCENTESIS ASPIR&/INJ MAJOR JT/BURSA W/O US (08/25/2022 8:00 AM LICENSING REPRESENTATIVE) Narrative George Sepulveda MD - 08/25/2022 8:00 AM LICENSING REPRESENTATIVE Jossie Montalvo PA ? 08/25/2022 ??2:45 PM Large Joint (Hip, Knee, Shoulder) Injection: L knee Performed by: Jossie Montalvo PA Authorized by: Jossie Montalvo PA Large Joint Injection/Aspiration: ??Consent Given by: ??Patient [...] procedure well with no immediate complications us Jossie SANDOVAL IN CLINIC/BEDSIDE ORDERABLES Final Result documented in this encounter Visit Diagnoses Diagnosis Edema of both lower extremities due to peripheral venous insufficiency- Primary Primary osteoarthritis of both knees Hx of total knee replacement, right documented in this encounter Administered Medications Inactive Administered Medications - up to 3 most recent administrations Medication Order MAR Action Action Date Dose Rate Site lidocaine (XYLOCAINE) 10 mg/mL (1 %) injection 4 mL 4 mL, One-Time Injection, Starting on Wed08/25/22 at 1445, For 1 dose, Indications: Administration of Local AnesthesiaIndications:Administr ation of Local Anesthesia Given 08/25/2022 2:45 PM LICENSING REPRESENTATIVE 4 mL Left Knee methylPREDNISolone acetate (DEPO-medrol) injection 80 mg 80 mg, intra-articular, One-Time Injection, Starting on Wed08/25/22 at 1445, For 1 doseIndications:Primary osteoarthritis of both knees Given 08/25/2022 2:45 PM LICENSING REPRESENTATIVE 80 mg Left Knee documented in this encounter Care Teams Weaving Instructor Relationship Specialty Start Date End Date No, Physician PCP - General 05/14/22 09/29/22 Unknown, Notinfile 03/12/22 [place] [address] [address] 03/12/22 documented as of this encounter
--- OUTSIDE RECORDS SUMMARY | 2024-10-11 01:58 | XMS_ITS | Encounter Summary ---
Author Organization [facility] Address [address] [facility] [address] [place] [address] Care Team Providers Care Purchasing Assistant Name Role Phone Santino Funk MD Primary Care Provider + Unknown, Notinfile Unavailable Unavailable Santino Funk MD Unavailable [phone] Encounter Details Date Type Department Care Team (Latest Contact Info) Description 12/01/2022 3:43 PM CYBER OPERATOR - 12/01/2022 11:59 PM CYBER OPERATOR Hospital Encounter [facility] [address] [address] Discharge Disposition: Discharge to home or self care Social History Tobacco Use Types Packs/Day Years Used Date Smoking Tobacco: Former Cigarettes 6 1966 Smokeless Tobacco: Never Alcohol Use [...] relatives? Three times a week 11/25/2021 Attends [employer] Not on file 11/25 Active Member [...] money to buy more. Never true 11/25/19 Within the past 12 months, t he [...] slept in a alf (including now)? No 11/25/2021 Sex and Gender Information Value Date Recorded Sex Assigned at Not on file Legal Sex Male 3:25 PM CYBER OPERATOR Gender Identity Not on file Sexual [...] daily as needed for pain 60 tablet 11/11/2022 3 donepeziL (ARICEPT) 10 mg tabletIndications :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) Take 1 tablet (10 mg total) by mouth nightly 30 tablet 5 09/30/2022 3 gabapentin (NEURONTIN) 300 mg capsuleIndication s:Neuropathic Pain 1 capsule at bedtime for 1 week then increase to 1 capsule twice a day for 1 week then increase to 1 capsule 3 times a day daily. 90 capsule 3 11/05/2022 3 lidocaine (ASPERCREME) 4 % adhesive patch,medicated [...] (Latest Contact Info) Description 10/23/2024 10:00 AM [facility] Hospital Encounter [facility] Operating Room [address] [place] [address] [place] [address] [address] 10/23/2024 10:00 AM CYBER OPERATOR - 10/23/2024 1:00 PM [facility] Surgery [facility] Operating Room [address] [place] [address] [place] [address] [address] ARTHROPLASTY TOTAL KNEE LEFT Scheduled Procedures Name Priority Associated Diagnoses Date/Ti me ARTHROPLASTY TOTAL KNEE left knee osteoarthritis 10/23/2024 10:00 AM CYBER OPERATOR ESOPHAGOGASTRODUODENOSCOPY Dysphagia, unspecified type documented as of this encounter Procedures Procedure Name Priority Date/Time Associated Diagnosis Comments XR KNEE BILATERAL 3 VIEWS Schedule Routine, Read Routine (OP Routine) 12/01/2022 4:01 PM CYBER OPERATOR Primary osteoarthritis of both knees Hx of total knee replacement, right documented in this encounter Results * XR Knee Bilateral 3 Views (12/01/2022 4:01 PM CYBER OPERATOR) Anatomical Region Laterality Modality Lower Extremities, Knee Bilateral Computed Radiography Narrative 12/01/2022 4:01 PM CYBER OPERATOR Radiographs of bilateral knees reviewed and interpreted these demonstrate well-positioned total knee arthroplasty in the right with advanced lkuo-[id number] medial and patellofemoral joint space narrowing on the left consistent with grade 4 osteoarthritis George Sepulveda MD IMG XR PROCEDURES Final R esult documented in this encounter Visit Diagnoses Not on filedocumented in this encounter Care Teams Purchasing Assistant Relationship Specialty [place] [address] [address] [facility] [place] [address] PCP - General Internal Medicine 09/30/22 05/04/23 Unknown, Notinfile 03/12/22 [place] [address] [address] [facility] [place] [address] 03/12/22 documented as of this encounter
--- OUTSIDE RECORDS SUMMARY | 2024-10-11 01:58 | XMS_ITS | Encounter Summary ---
Author Organization [facility] Address [address] [facility] [address] [place] [address] Care Team Providers Care Manager Clinical Applications Name Role Phone Santino Funk MD Primary Care Provider + Unknown, Notinfile Unavailable Unavailable Santino Funk MD Unavailable [phone] Reason for Visit * Reason Onset Date Comments Medication Problem 05/04/2023 Med Management 05/04/2023 Encounter Details Date Type Department Care Team (Late st Contact Info) Description 05/04/2023 Telephone [facility]opedics [facility] Medicine at [place] [phone] [address] George Sepulveda MD [address] [place] [id number] Medication Problem; Med Management Social History Tobacco Use Types Packs/Day Years [...] relatives? Three times a week 11/25/2021 Attends [employer] Services Not on file 11/25 Active Member [...] in a care home (including now)? No 11/25/2021 Sex and Gender Information Value Date Recorded Sex Assigned at Not on file Legal Sex Male 3:25 PM [employer] Gender Identity Not on file Sexual Orientation Not on file documented as of this encounter Miscellaneous Notes * Telephone Encounter - Paty López - 05/04/2023 10:38 AM CDT Called and notified patient * Telephone Encounter - Paty López - 05/04/2023 10:04 AM CDT Silvia from [facility] pharmacy called and stated patient picked up script for tizanidine 2 mg tabletprescribed by Nayan Mahajan. A script for flexeril 5 mg tablet was sent to the pharmacy from our officetoday. Silvia [facility] [phone] documented in this encounter Plan of Treatment Upcoming Encounters Date Type Department Care Team (Latest Contact Info) Description 10/23/2024 10:00 AM [employer] Hospital Encounter Operating Room [address] [place] [address] [place] [address] [id number] 10/23/2024 10:00 AM [employer] - 10/23/2024 1:00 PM [employer] Surgery Operating Room [address] [place] [address] [place] [address] [id number] ARTHROPLASTY TOTAL KNEE LEFT Scheduled Procedures Name Priority Associated Diagnoses Date/Ti me ARTHROPLASTY TOTAL KNEE left knee osteoarthritis 10/23/2024 10:00 AM [employer] ESOPHAGOGASTRODUODENOSCOPY Dysphagia, unspecified type documented as of this encounter Visit Diagnoses Not on filedocumented in this encounter Care Teams Manager Clinical Applications Relationship Specialty [place] [address] [id number] PCP - General Internal Medicine 09/30/22 05/04/23 Unknown, Notinfile 03/12/22 [place] [address] [address] 03/12/22 documented as of this encounter
--- OUTSIDE RECORDS SUMMARY | 2024-10-11 01:58 | XMS_ITS | Encounter Summary ---
Author Organization [facility] Address [address] [facility] [address] [place] [address] Care Team Providers Care Counter Checker Name Role Phone Santino Funk MD Primary Care Provider + Unknown, Notinfile Unavailable Unavailable Santino Funk MD Unavailable [phone] Reason for Referral * Procedure (Routine) - Closed Specialty Diagnoses / Procedures Referred By Contac t Referred To Contact Diagnoses Primary osteoarthritis of both knees Procedures Large Joint (Hip, Knee, Shoulder) [place]jection: [place] [id number] [address] Phone: tel: fax: [facility] Referral ID Status Reason Start Date Expiration Date Visits Re quested Visits Authorized [id number] Closed 12/01/2022 12/31/2023 1 1 LE OPERATOR Reason for Visit * Reason Comments Injections Injections Encounter Details Date Type Department Care Team (Latest Contact Info) Description 12/01/2022 3:30 PM MUFFLE OPERATOR Office Visit [facility] Orthopedics & Sports Medicine at [facility] [id number] [place] [phone] [place] [id number] [address] Primary osteoarthritis of both knees (Primary Dx); Hx of total knee replacement, right; Peripheral edema; Neuropathy (CMS/HCC) Social History Tobacco Use Types Packs/Day [...] on file Legal Sex Male 3:25 PM MUFFLE OPERATOR Gender Identity Not on file Sexual Orientation Not on file documented as of this encounter Last Filed Vital Signs Vital Sign Reading Time Taken Comments Blood Pressure - - Pulse - - Temperature - - Respiratory Rate - - Oxygen Saturation - - Inhaled Oxygen Concentration - - Weight - - Height 180.3 cm (5' 10.98 ) 12/01/2022 3:[address] Body Mass Index - - documented in this encounter Progress Notes * George Sepulveda MD - 12/01/2022 3:30 PM CSTAssociated Order(s): Large Joint (Hip, Knee, Shoulder) Injection: L knee Post-Procedure Diagnose(s): Primary osteoarthritis of both knees Images from the original note were not included. FOLLOW UP VISIT Subjective CHIEF COMPLAINT He had concerns including Injections of the Left Knee and Injections of the Right Knee. HISTORY OF PRESENT ILLNESS Patient returns today for follow-up evaluation of his right and left knees. Patient states that he is had significant improvement in his pain and cramping ever since he was diagnosed with neuropathy and was prescribed gabapentin. He is now struggling with significant peripheral edema however. Patient is here for repeat injection in the left knee. Pain Assessment Pain Assessment: 0-10 Pain Score: 8 Pain Location: Knee Pain Orientation: Left Pain Descriptors: Aching, Sore, Sharp, Discomfort (edema) Pain Frequency: Constant/continuous Pain Onset: Ongoing Clinical Progression: Not changed Result of Injury: No Work-Related Injury: No Multiple Pain Sites: Two Pain 2 Pain Score 2: 5 - Moderate pain Pain Location 2: Knee Pain Orientation 2: Right Pain Descriptors 2: Sore, Discomfort, Aching (edema) Pain Frequency 2: Intermittent Pain Onset 2: On-going Clinical Progression 2: Not changed Result of Injury 2: No Work-Related Injury 2: No MEDICATIONS He has a current medication list which includes the following prescription(s): acetaminophen, cholecalciferol, diclofenac dr, donepezil, gabapentin, levothyroxine, magnesium oxide, mirtazapine, omeprazole, oxybutynin xl, polyethylene glycol, senna-docusate, sildenafil (pulm.hypertension), tamsulosin, tizanidine, tramadol, trazodone, turmeric root extract, UNABLE TO FIND, lidocaine, and senna-docusate. REVIEW OF SYSTEMS Review of Systems Constitutional: [...] concentration and hallucinations. Objective PHYSICAL EXAM Ht 180.3 cm (5' 10.98 ) BMI 31.90 kg/m?? Right knee Inspection Erythema: absent Cellulitis: absent Swelling: absent Surgical scar/wound: present. The surgical scar/wound is healed. Skin temperature: normal Alignment: neutral Gait: normal Palpation Tenderness: absent. Patellar tracking: normal Crepitus: negative Patella grind: negative Subluxation: negative Range of motion Active extension: 0 Active flexion: 121-125 Flexion contracture: no. Extensor lag: no. Stability ML stability: stable Varus stress at 0 degrees: stable Valgus stress at 0 degrees: stable Varus stress at 30 degrees: stable Valgus stress at 30 degrees: stable Posterior drawer: negative Strength The patient has 5/5 strength thoughout right knee. Neurovascular The patient has normal vascular on the right side of their body. The patient has normal sensation on the right side of their body. Special tests Patellar apprehension: negative Patellar J-sign: negative Posterior sag: negative Left knee Inspection Erythema: absent Cellutlis: absent Swelling: moderate Effusion: 1+ Skin temperature: normal Alignment: neutral Gait: antalgic [...] negative Posterior sag: negative REVIEW OF X-RAYS/STUDIES/LABS XR Knee Bilateral 3 Views Radiographs of bilateral knees reviewed and interpreted these demonstrate well- positioned total knee arthroplasty in the right with advanced [id number] medial and patellofemoral joint space narrowing on the left consistent with grade 4 osteoarthritis Assessment/Plan Abrahan was seen today for injections and injections. Diagnoses and all orders for this visit: Primary osteoarthritis of both knees - XR Knee Bilateral 3 Views Hx of total knee replacement, right - XR Knee Bilateral 3 Views Large Joint (Hip, Knee, Shoulder) Injection: L knee Performed by: George Sepulveda MD Authorized by: George Sepulveda MD Large Joint Injection/Aspiration: Verbal consent obtained: Yes Supporting Documentation: Indications: Pain and joint swelling Procedure Details: Location: Knee Site: L knee Needle Size: 22 G Approach: Anterolateral Medications: 2 mL lidocaine 10 mg/mL (1 %); 80 mg methylPREDNISolone acetate 80 mg/mL PLAN I discussed the nature of the patient's condition the office today. I offered him a repeat corticosteroid injection in the left knee and he accepted. Patient will continue with his at-home rehabilitation for his knees. We discussed limiting his salt in the diet to a 2 g salt intake. We discussed compression stockings for his peripheral edema. I recommended he follow-up with his primary care physician discuss a water pill. As long as the patient continues to do well he will see us back on an as-needed basis. George Sepulveda MD LE OPERATOR documented in this encounter Plan of Treatment Upcoming Encounters Date Type Department Care Team (Latest Contact Info) Description 10/23/2024 10:00 AM MUFFLE OPERATOR Hospital Encounter [facility] Operating Room [address] [place] [address] [place] [address] [phone] 10/23/2024 10:00 AM MUFFLE OPERATOR - 10/23/2024 1:00 PM MUFFLE OPERATOR Surgery [facility] Operating Room [address] [place] [address] [place] [address] [phone] ARTHROPLASTY TOTAL KNEE LEFT Scheduled Procedures Name Priority Associated Diagnoses Date/Ti me ARTHROPLASTY TOTAL KNEE left knee osteoarthritis 10/23/2024 10:00 AM MUFFLE OPERATOR ESOPHAGOGASTRODUODENOSCOPY Dysphagia, unspecified type documented as of this encounter Procedures Procedure Name Priority Date/Time Associated Diagnosis Comments XR KNEE BILATERAL 3 VIEWS Schedule Routine, Read Routine (OP Routine) 12/01/2022 4:01 PM MUFFLE OPERATOR Primary osteoarthritis of both knees Hx of total knee replacement, right ID ARTHROCENTESIS ASPIR&/INJ MAJOR JT/BURSA W/O US Routine 12/01/2022 3:30 PM MUFFLE OPERATOR Primary osteoarthritis of both knees documented in this encounter Results * XR Knee Bilateral 3 Views (12/01/2022 4:01 PM MUFFLE OPERATOR) Anatomical Region Laterality Modality Lower Extremities, Knee Bilateral Computed Radiography Narrative 12/01/2022 4:01 PM MUFFLE OPERATOR Radiographs of bilateral knees reviewed and interpreted these demonstrate well-positioned total knee arthroplasty in the right with advanced [id number] medial and patellofemoral joint space narrowing on the left consistent with grade 4 osteoarthritis us George Sepulveda MD IMG XR PROCEDURES Final R esult * ID ARTHROCENTESIS ASPIR&/INJ MAJOR JT/BURSA W/O US (12/01/2022 3:30 PM MUFFLE OPERATOR) Narrative George Sepulveda MD - 12/01/2022 3:30 PM MUFFLE OPERATOR George Sepulveda MD ? 12/01/2022 ??4:43 PM Large Joint (Hip, Knee, Shoulder) Injection: L knee Performed by: George Sepulveda MD Authorized by: George Sepulveda MD Large Joint Injection/Aspiration: ??Verbal consent obtained: Yes ?? Supporting Documentation: ??Indications: ??Pain and joint swelling Procedure Details: ??Location: ??Knee ??Site: ??L knee ??Needle Size: ??22 G ??Approach: ??Anterolateral ??Medications: ??2 mL lidocaine 10 mg/mL (1 %); 80 mg methylPREDNISolone acetate 80 mg/mL George Sepulveda MD IN CLINIC/BEDSIDE ORDERAB LES Final Result documented in this encounter Visit Diagnoses Diagnosis Primary osteoarthritis of both knees- Primary Hx of total knee replacement, right Peripheral edema Edema Neuropathy (CMS/HCC) Mononeuritis of unspecified site documented in this encounter Administered Medications Inactive Administered Medications - up to 3 most recent administrations Medication Order MAR Action Action Date Dose Rate Site lidocaine (XYLOCAINE) 10 mg/mL (1 %) injection 2 mL 2 mL, One-Time Injection, Starting on Wed12/01/22 at 1643, For 1 dose, Indications: Administration of Local AnesthesiaIndications:Administr ation of Local Anesthesia Given 12/01/2022 4:43 PM MUFFLE OPERATOR 2 mL Left Knee methylPREDNISolone acetate (DEPO-medrol) injection 80 mg 80 mg, intra-articular, One-Time Injection, Starting on Wed12/01/22 at 1643, For 1 doseIndications:Primary osteoarthritis of both knees Given 12/01/2022 4:43 PM MUFFLE OPERATOR 80 mg Left Knee documented in this encounter Care Teams Counter Checker Relationship Specialty [place] [address] [facility] [place] [address] PCP - General Internal Medicine 12/21/22 7/25/23 Unknown, Notinfile 03/12/22 [place] [id number] [address] 03/12/22 documented as of this encounter
--- OUTSIDE RECORDS SUMMARY | 2024-10-11 01:58 | XMS_ITS | Encounter Summary ---
Author Organization [facility] Address [address] [facility] [address] [place] [address] Care Team Providers Care Bushing Press Operator Name Role Phone Santino Funk MD Primary Care Provider + Unknown, Notinfile Unavailable Unavailable Santino Funk MD Unavailable [phone] Encounter Details Date Type Department Care Team (Late st Contact Info) Description 12/22/2022 Orders Only [facility] Orthopedics & Sports Medicine at [facility] [address] [phone] [place] [address] [address] Social History Tobacco Use Types Packs/Day Years [...] relatives? Three times a week 11/25/2021 Attends [employer] Not on file 11/25 Active Member [...] to sleep or slept in a senior living (including now)? No 11/25/2021 Sex and Gender Information Value Date Recorded Sex Assigned at Not on file Legal Sex Male 3:25 PM MATHEMATICS EDUCATION PROFESSOR Gender Identity Not on file Sexual Orientation Not on file documented as of this encounter Ordered Prescriptions Prescription Sig Dispense Quantity Refills Last Filled Start Date End Date diclofenac DR (VOLTAREN) 50 mg EC tablet Take 1 tablet (50 mg total) by mouth 2 (two) times a day as needed for pain for pain 60 tablet 12/22/2022 01/25/2023 documented in this encounter Plan of Treatment Upcoming Encounters Date Type Department Care Team (Latest Contact Info) Description 10/23/2024 10:00 AM MATHEMATICS EDUCATION PROFESSOR Hospital Encounter [facility] Operating Room [id number] [place] [id number] [place] [address] [address] 10/23/2024 10:00 AM MATHEMATICS EDUCATION PROFESSOR - 10/23/2024 1:00 PM MATHEMATICS EDUCATION PROFESSOR Surgery [facility] Operating Room [address] [place] [id number] [place] [address] [phone] ARTHROPLASTY TOTAL KNEE LEFT Scheduled Procedures Name Priority Associated Diagnoses Date/Ti me ARTHROPLASTY TOTAL KNEE left knee osteoarthritis 10/23/2024 10:00 AM MATHEMATICS EDUCATION PROFESSOR ESOPHAGOGASTRODUODENOSCOPY Dysphagia, unspecified type documented as of this encounter Visit Diagnoses Not on filedocumented in this encounter Discontinued Medications Medication Sig Discontinue Reason Start Date End Da te diclofenac DR (VOLTAREN) 50 mg EC tablet Take 1 tablet by mouth twice daily as needed for pain Reorder 11/11/2022 12/22/2022 documented as of this encounter Care Teams Bushing Press Operator Relationship Specialty [place] [address] [address] PCP - General Internal Medicine 09/30/22 05/04/23 Unknown, Notinfile 03/12/22 [place] [address] [facility] [place] [address] 03/12/22 documented as of this encounter
--- OUTSIDE RECORDS SUMMARY | 2024-10-11 01:58 | XMS_ITS | Encounter Summary ---
Author Organization [facility] Address [address] [place] [address] Care Team Providers Care Booking Agent Name Role Phone Santino Funk MD Primary Care Provider + Unknown, Notinfile Unavailable Unavailable Santino Funk MD Unavailable [phone] Reason for Visit * Reason Comments Alzheimer's Disease Encounter Details Date Type Department Care Team (Late st Contact Info) Description 12/03/2022 1:00 PM DIESEL [employer] Office Visit [facility] [address] [address], [place] [address] [place]ayan [place] II, [place] [id number] [place] [address] [address] [address] Hereditary and idiopathic neuropathy (Primary Dx); Neuropathic pain of both feet; Alzheimer's disease (HCC) Social History Tobacco Use Types Packs/Day [...] relatives? Three times a week 11/25/2021 Attends [employer] Not on file 11/25 Active Member [...] in a group home (including now)? No 11/25/2021 Sex and Gender Information Value Date Recorded Sex Assigned at Not on file Legal Sex Male 3:25 PM [employer] Gender Identity Not on file Sexual Orientation Not on file documented as of this encounter Last Filed Vital Signs Vital Sign Reading Time Taken Comments Blood Pressure 122/60 12/03/2022 1:17 PM [employer] Pulse 67 12/03/2022 1:17 PM [employer] Temperature - - Respiratory Rate 16 12/03/2022 1:17 PM [employer] Oxygen Saturation 96% 12/03/2022 1:17 PM [employer] Inhaled Oxygen Concentration - - Weight 105 kg (231 lb 7.7 oz) 12/03/2022 1:17 PM [employer] Height 177.8 cm (5' 10 ) 12/03/2022 1:17 PM [employer] Body Mass Index 33.21 12/03/2022 1:17 PM [employer] documented in this encounter Ordered Prescriptions Prescription Sig Dispense Quantity Refills Last Filled Start Date End Date capsaicin 0.1 % creamIndications:N europathic Pain Apply to your feet three to four times a day. 60 g 5 12/03/2022 gabapentin (NEURONTIN) 100 mg capsuleIndications :Neuropathic Pain Take 2 capsules (200 mg total) by mouth 3 (three) times a day 180 capsule 5 12/03/2022 3 documented in this encounter Progress Notes * Nayan Mahajan II, MD - 12/03/2022 1:00 PM CST Subjective: Patient ID: Abrahan Gtz Jr. is a 77 y.o. male with a dementia of the Alzheimer's type and neuropathic pain from an idiopathic peripheral neuropathy. Memory Loss The patient returns today for a scheduled follow-up visit. On his last visit he was complaining of increased symptoms of neuropathic pain so he was started on gabapentin and titrated to a dose of 300mg 3 times a day there has been at least a 60-70% improvement in the severity of his neuropathic pain however he complains of drowsiness with the medication. Otherwise there are no other side effects. He is on donepezil for impairment of memory no side effects of the medication is reported. There are no other physical or other neurological complaints at this time. Review of Systems Constitutional: Negative for activity change, fatigue, fever and unexpected weight change. HENT: Negative for hearing loss and nosebleeds. Eyes: Negative for photophobia and visual disturbance. Respiratory: Negative for cough and shortness of breath. Cardiovascular: Negative for chest pain and palpitations. Gastrointestinal: Negative for abdominal distention, abdominal pain, constipation, nausea and vomiting. Endocrine: Negative for cold intolerance, heat intolerance, polydipsia, polyphagia and polyuria. Genitourinary: Negative for difficulty urinating, dysuria, flank pain, frequency and urgency. Musculoskeletal: Negative for arthralgias, back pain, gait problem, joint swelling and neck pain. Skin: Negative for color change and rash. Allergic/Immunologic: Negative for environmental allergies, food allergies and immunocompromised state. Neurological: Negative for dizziness, tremors, seizures, syncope, facial asymmetry, speech difficulty, weakness, light-headedness, numbness and headaches. Hematological: Negative for adenopathy. Does not bruise/bleed easily. Psychiatric/Behavioral: Negative for agitation, behavioral problems, confusion, decreased concentration, dysphoric mood and hallucinations. The patient is not nervous/anxious. Objective: Neurological Exam Mental Status Awake, alert and oriented to person, place and time. Speech is normal. Language is fluent with no aphasia. Cranial Nerves CN II: Visual white full [...] XII: Tongue midline without atrophy or fasciculations. Sensory Light touch is normal in upper and lower extremities. Reflexes Right Left Brachioradialis 0 0 Biceps 0 0 Triceps 0 0 Patellar 0 0 Achilles 0 0 Coordination [id number], rapid alternating movements and [id number] normal bilaterally without dysmetria. Gait Casual gait is normal including stance, stride, and arm swing. Physical Exam Vitals reviewed. Constitutional: Appearance: Normal appearance. HENT: Head: Normocephalic and atraumatic. Nose: Nose normal. Eyes: General: Lids are normal. Extraocular Movements: Extraocular movements intact. Pupils: Pupils are equal, round, and reactive to light. Cardiovascular: Rate and Rhythm: Normal rate and regular rhythm. Pulmonary: Effort: Pulmonary effort is normal. Abdominal: Palpations: Abdomen is soft. Musculoskeletal: Cervical back: Normal range of motion. Right lower leg: No edema. Left lower leg: No edema. Skin: General: Skin is warm. Findings: No rash. Neurological: Coordination: Coordination is intact. Deep Tendon Reflexes: Reflex Scores: Tricep reflexes are 0 on the right side and 0 on the left side. Bicep reflexes are 0 on the right side and 0 on the left side. Brachioradialis reflexes are 0 on the right side and 0 on the left side. Patellar reflexes are 0 on the right side and 0 on the left side. Achilles reflexes are 0 on the right side and 0 on the left side. Psychiatric: Speech: Speech normal. Assessment/Plan: 1. Neuropathic pain 2. Idiopathic peripheral neuropathy 3. Dementia of the Alzheimer's type The patient's dementia remains stable he will continue with donepezil 10 mg per day. His issue was his neuropathic pain which has improved with gabapentin however he is drowsy and sleepy with the medication I will decrease the dose from 300 mg 3 times a day to 200 mg 3 times a day and new prescription for 100 mg capsules 2 capsules 3 times a day has been sent to the pharmacy with afollow-up planned in 3-4 months. Medications Current Outpatient Medications: acetaminophen (TYLENOL) 500 mg tablet, Take 1 tablet (500 mg total) by mouth every 6 (six) hours asneeded for pain, Disp: 30 tablet, Rfl: 0 cholecalciferol (VITAMIN D-3) 2000 unit capsule, Take 1 capsule (2,000 Units total) by mouth daily (Patient taking differently: Take 2,000 Units by mouth nightly), Disp: 30 capsule, Rfl: [address] (VOLTAREN) 50 mg EC tablet, Take 1 tablet by mouth twice daily as needed for pain, Disp: 60 tablet, Rfl: 0 donepeziL (ARICEPT) 10 mg tablet, Take 1 tablet (10 mg total) by mouth nightly, Disp: 30 tablet, Rfl: 5 levothyroxine (SYNTHROID) 150 mcg tablet, Take 150 [...] homeopathic muscle cramp medications, Disp: , Rfl: capsaicin 0.1 % cream, Apply to your feet three to four times a day., Disp: 60 g, Rfl: 5 gabapentin (NEURONTIN) 100 mg capsule, Take 2 capsules (200 mg total) by mouth 3 (three) times a day, Disp: 180 capsule, Rfl: 5 lidocaine (ASPERCREME) 4 % adhesive patch,medicated, Place 1 patch on the skin daily for 12 days, Disp: 12 patch, Rfl: 0 History Family History Problem Relation Age of [...] of condyle of left femur (CMS/HCC) ([facility]) 08/30/2018 Closed fracture of left tibial plateau [...] of breast 02/01/2018 Edema 04/04/2020 Intermittent claudication ([facility]) ([facility]) 04/04/2020 Iron deficiency anemia 04/04/2020 Peripheral vascular disease ([facility]) ([facility]) 04/04/2020 Pain due to total right knee replacement ([facility]) ([facility]) 04/28/2022 Hamstring tendinitis of right thigh 04/28/2022 Quadriceps weakness 04/28/2022 Idiopathic peripheral neuropathy Abnormality of gait and mobility Hx of total knee replacement, right 12/01/2022 Neuropathy ([facility]) 12/01/2022 Resolved Ambulatory Problems Diagnosis Date Noted No Resolved Ambulatory Problems Past Medical History: Diagnosis Date Acute gastric ulcer without hemorrhage or perforation Alzheimer's dementia ([facility]) Asthma Back pain Cataract Clotting disorder ([facility]) ([facility]) Cramps of lower extremity Diverticulitis of colon Easy bruisability Fatigue Frequent urination Gastroesophageal reflux disease Hypothyroidism Incontinence of urine Muscle weakness Osteoarthritis Peptic ulcer Seizures ([facility]) ([facility]) 1997 SOB (shortness of breath) on exertion Vertigo Vision changes Visual disturbance Social History Tobacco Use Smoking status: Former Types: Cigarettes Start date: 1965 Quit date: 1967 Years since quittin.1 Smokeless tobacco: Never Substance and Sexual Activity Drug use: No Sexual activity: Defer Alcohol Use: Not At Risk Frequency of Alcohol Consumption: Monthly or less Average Number of Drinks: 3 or 4 Frequency of Binge Drinking: Never [employer] documented in this encounter Plan of Treatment Upcoming Encounters Date Type Department Care Team (Latest Contact Info) Description 10/23/2024 10:00 AM DIESEL ENGINE PIPE [employer]TER Hospital Encounter [facility] Operating Room [address] [place] [address] [place] [id number] [facility] [address] [place] [address] 10/23/2024 10:00 AM DIESEL [employer] P[employer]TER - 10/23/2024 1:00 PM [facility] Surgery [facility] [address] [address] [place] [address] [place] [id number] [address] ARTHROPLASTY TOTAL KNEE LEFT Scheduled Procedures Name Priority Associated Diagnoses Date/Ti me ARTHROPLASTY TOTAL KNEE left knee osteoarthritis 10/23/2024 10:00 AM [employer]TER ESOPHAGOGASTRODUODENOSCOPY Dysphagia, unspecified type documented as of this encounter Visit Diagnoses Diagnosis Hereditary and idiopathic neuropathy- Primary Unspecified hereditary and idiopathic peripheral neuropathy Neuropathic pain of both feet Alzheimer's disease (HCC) Alzheimer's disease documented in this encounter Discontinued Medications Medication Sig Discontinue Reason Start Date End Da te senna-docusate (PERICOLACE) 8.6-50 mgIndications:constipat ion Take 2 tablets by mouth 2 (two) times a day Duplicate order 11/26/2021 12/03/2022 gabapentin (NEURONTIN) 300 mg capsuleIndications:Neur opathic Pain 1 capsule at bedtime for 1 week then increase to 1 capsule twice a day for 1 week then increase to 1 capsule 3 times a day daily. Dose adjustment 11/05/2022 12/03/2022 documented as of this encounter Care Teams Booking Agent Relationship Specialty [place] [id number] [place] [address] PCP - General Internal Medicine 09/30/22 05/04/23 Unknown, Notinfile 03/12/22 [place] [id number] [place] [address] 03/12/22 documented as of this encounter
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
--- OUTSIDE RECORDS SUMMARY | 2024-10-11 01:58 | XMS_ITS | Encounter Summary ---
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 Biceps tendinitis of left upper extremity Procedures MRI [place]er [place] [address] [address] Phone: tel: fax: [facility] Referral ID Status Reason Start Date Expiration Date Visits Re quested Visits Authorized [id number] Closed 05/04/2023 06/02/2024 1 1 Reason for Visit * Reason Comments Follow-up Follow-up Follow-up Encounter Details Date Type Department Care Team (Latest Contact Info) Description 05/04/2023 8:30 AM CDT Office Visit [facility] Orthopedics & Sports Medicine at [facility] [address] [place] [address] [place] [phone] [place] [address] [address] 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 No 11/25/2021 Sex and Gender Information Value Date Recorded Sex Assigned at Not on file Legal Sex Male 3:25 PM RFID MANAGER Gender Identity Not on file Sexual Orientation Not on file documented as of this encounter Last Filed Vital Signs Vital Sign Reading Time Taken Comments Blood Pressure - - Pulse - - Temperature - - Respiratory Rate - - Oxygen Saturation - - Inhaled Oxygen Concentration - - Weight 104.3 kg (230 lb) 05/04/2023 8:50 AM CDT Height 177.8 cm (5' 10 ) 05/04/2023 8:50 AM CDT Body Mass Index 33 05/04/2023 8:50 AM CDT documented in this encounter Ordered Prescriptions Prescription Sig Dispense Quantity Refills Last Filled Start Date End Date cyclobenzaprine (FLEXERIL) 5 mg tablet Take 0.5 tablets (2.5 mg total) by mouth 3 (three) times a day as needed for muscle spasms 20 tablet 05/04/2023 documented in this encounter Progress Notes * Jossie Montalvo PA - 05/04/2023 8:30 AM CDT Images from the original note were not included. FOLLOW UP VISIT Subjective CHIEF COMPLAINT He had concerns including Follow-up of the Left Knee, Follow-up of the Left Shoulder, and Follow-upof the Right Knee. HISTORY OF PRESENT ILLINESS This is a follow-up visit for left shoulder and left knee pain. Patient had an injection in his left shoulder last office visit, he reports this was really not helpful. He has pain with reaching, pain if he lays on his shoulder at night. His range of motion is restricted. This has been ongoing for 3 or 4 months. He is wondering what the next steps are to evaluate this. The other issue is his left knee. He has advanced arthritis in left knee with hjcn-ov-rahl contact.He had a right knee replacement done over a year ago which was a slow recovery for him. Feels the right knee is doing well and is interested in potentially moving forward with left total knee replacement. He notices it is painful with driving and stair climbing. 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 MEDICATIONS He has a current medication list which includes the following prescription(s): acetaminophen, albuterol hfa, cholecalciferol, diclofenac dr, gabapentin, levothyroxine, magnesium oxide, mirtazapine, omeprazole, oxybutynin xl, senna- docusate, sildenafil (pulm.hypertension), tizanidine, trazodone, capsaicin, donepezil, lidocaine, polyethylene glycol, tamsulosin, tramadol, turmeric root extract, and UNABLE TO FIND. [...] decreased concentration and hallucinations. PHYSICAL EXAM Right shoulder Inspection Erythema: absent Edema: absent [...] Comments: 1+ LE edema REVIEW OF X-RAYS/STUDIES/LABS (IF ORDERED) Assessment/Plan Abrahan was seen today for follow-up, follow-up and follow-up. 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 MRI scan was ordered to evaluate further -his left knee has advanced qzkf-bi-rdyx arthritis from x-rays taken in November. I told him that knee replacement could be scheduled at any time of his choosing beyond 6 weeks from now due to recentinjection, however I recommended that he get the MRI of the shoulder and find out what is going on with that prior to making any decisions about surgery for his knee. -he will follow-up with Dr. Sepulveda after his MRI is complete to discuss further intervention for either knee or shoulder as indicated. LORI Craig Cosigned by George Sepulveda MD at 05/04/2023 12:17 PM CDT documented in this encounter Plan of Treatment Upcoming Encounters Date Type Department Care Team (Latest Contact Info) Description 10/23/2024 10:00 AM RFID MANAGER Hospital Encounter [facility] Operating Room [id number] [place] [address] [place] [id number] [place] [phone] 10/23/2024 10:00 AM RFID MANAGER - 10/23/2024 1:00 PM RFID MANAGER Surgery [facility] Operating Room [id number] [place] [id number] [place] [address] [phone] ARTHROPLASTY TOTAL KNEE LEFT Scheduled Procedures Name Priority Associated Diagnoses Date/Ti me ARTHROPLASTY TOTAL KNEE left knee osteoarthritis 10/23/2024 10:00 AM RFID MANAGER ESOPHAGOGASTRODUODENOSCOPY Dysphagia, unspecified type documented as of this encounter Results * MRI Shoulder Left [...] signed by: Oneal Baxter MD Jossie S[facility] IMG MRI PROCEDURES Final Resu lt documented in this encounter Visit Diagnoses Diagnosis 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 Medication Sig Dispense Quantity Refills Last Filled Start D ate End Date cyclobenzaprine (FLEXERIL) 5 mg tablet 0 04/15/2023 05/04/2023 added in this encounter Care Teams Tour Production Supervisor Relationship Specialty [place] [address] [facility] [place] [address] PCP - General Internal Medicine 09/30/22 05/04/23 Unknown, Notinfile 03/12/22 [place] [address] [address] 03/12/22 documented as of this encounter
--- OUTSIDE RECORDS SUMMARY | 2024-10-11 01:58 | XMS_ITS | Encounter Summary ---
Author Organization [facility] Address [address] [place] [address] Care Team Providers Care Cattle Care Worker Name Role Phone Santino Funk MD Primary Care Provider + Unknown, Notinfile Unavailable Unavailable Santino Funk MD Unavailable [phone] Reason for Visit * Reason Comments Alzheimer's Disease Encounter Details Date Type Department Care Team (Latest Contact Info) Description 11/05/2022 10:00 AM ANHYDROUS AMMONIA PRODUCTION SUPERVISOR Office Visit [facility] [address] [address] [facility] [address] [address] Nayan Mahajan II, [place] [id number] [place] [address] [address] [address] Polyneuropathy (Primary Dx); Neuropathic pain; Pruritus; Polyarthralgia Social History Tobacco Use Types Packs/Day Years Used Date Smoking Tobacco: Former Cigarettes 966 1966 Smokeless Tobacco: Never Alcohol Use [...] relatives? Three times a week 11/25/2021 Attends [employer] Not on file 11/25 Active Member [...] slept in a jail (including now)? No 11/25/2021 Sex and Gender Information Value Date Recorded Sex Assigned at Not on file Legal Sex Male 3:25 PM ANHYDROUS AMMONIA PRODUCTION SUPERVISOR Gender Identity Not on file Sexual Orientation Not on file documented as of this encounter Last Filed Vital Signs Vital Sign Reading Time Taken Comments Blood Pressure 130/70 11/05/2022 9:48 AM ANHYDROUS AMMONIA PRODUCTION SUPERVISOR Pulse 53 11/05/2022 9:48 AM ANHYDROUS AMMONIA PRODUCTION SUPERVISOR Temperature - - Respiratory Rate 17 11/05/2022 9:48 AM ANHYDROUS AMMONIA PRODUCTION SUPERVISOR Oxygen Saturation 99% 11/05/2022 9:48 AM ANHYDROUS AMMONIA PRODUCTION SUPERVISOR Inhaled Oxygen Concentration - - Weight 103.7 kg (228 lb 9.9 oz) 11/05/2022 9:48 AM ANHYDROUS AMMONIA PRODUCTION SUPERVISOR Height 180.3 cm (5' 11 ) 11/05/2022 9:48 AM ANHYDROUS AMMONIA PRODUCTION SUPERVISOR Body Mass Index 31.89 11/05/2022 9:48 AM ANHYDROUS AMMONIA PRODUCTION SUPERVISOR documented in this encounter Ordered Prescriptions Prescription Sig Dispense Quantity Refills Last Filled Start Date End Date gabapentin (NEURONTIN) 300 mg capsuleIndications :Neuropathic Pain 1 capsule at bedtime for 1 week then increase to 1 capsule twice a day for 1 week then increase to 1 capsule 3 times a day daily. 90 capsule 3 11/05/2022 3 documented in this encounter Progress Notes * Nayan Mahajan II, MD - 11/05/2022 10:00 AM CST Subjective: Patient ID: Abrahan Gtz Jr. is a 77 y.o. male with a dementia of the Alzheimer's type and idiopathic peripheral neuropathy.. 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 Lab work looking for a cause of neuropathy was unrevealing. B12 folate methylmalonic acid vitamin E and zinc levels were all within normal limits. No monoclonal proteins were identified sedimentation rate was normal and antinuclear antibody screen was negative. The patient complains of pain in his joints specifically the shoulders bilaterally both knee jointshis hands and his wrist. He wakes up in the morning with stiffness of his hands and wrists and swelling of the hands and wrist. In addition he also complains of excessively dry skin and itching. He does have numbness and tingling of his hands and feet and also complains of burning and neuropathic pain. The results of the patient's EMG nerve conduction velocity study and blood work looking for a causeof neuropathy was discussed with the patient. Review of Systems Constitutional: Negative for activity change, appetite change and fever. HENT: Negative for hearing loss, sore throat and tinnitus. Eyes: Negative for visual disturbance. Respiratory: Negative for cough and shortness of breath. Cardiovascular: Negative for chest pain and palpitations. Gastrointestinal: Negative for abdominal pain, constipation, diarrhea and nausea. Musculoskeletal: Positive for arthralgias and joint swelling. Negative for back pain. Neurological: Positive for numbness. Negative for dizziness, seizures, syncope, facial asymmetry, speech difficulty, weakness, light-headedness and headaches. Psychiatric/Behavioral: Negative for agitation, behavioral problems, confusion, decreased concentration, dysphoric mood and hallucinations. The patient is not nervous/anxious and is not hyperactive. Objective: Neurological Exam Mental Status Awake and alert. Speech is normal. Language is fluent with no aphasia. Attention and concentration are normal. Cranial Nerves CN II: Visual white full [...] Tongue midline without atrophy or fasciculations. Motor No abnormal involuntary movements. Strength is 5/5 throughout all four extremities. Sensory Light touch is normal in upper and lower extremities. Coordination Right: Fzkfyi-ey-rnnl normal.Left: Nwppvz-nq-opkj normal. Gait Slow antalgic. Physical Exam Vitals reviewed. Constitutional: General: He is awake. Appearance: Normal appearance. He is well-developed. HENT: Head: Normocephalic and atraumatic. Eyes: General: Lids are normal. Extraocular Movements: Extraocular movements intact. Conjunctiva/sclera: Conjunctivae normal. Pupils: Pupils are equal, round, and reactive to light. Pulmonary: Effort: Pulmonary effort is normal. Abdominal: Palpations: Abdomen is soft. Musculoskeletal: Right lower leg: No edema. Left lower leg: No edema. Skin: General: Skin is warm. Neurological: Mental Status: He is alert. Motor: Motor strength is normal. Psychiatric: Speech: Speech normal. Assessment/Plan: 1. Neuropathic pain 2. Idiopathic peripheral neuropathy. I explained to the patient that a cause for his neuropathy was not identified and that in 30-40% of patients with neuropathy a cause is not identified. The results of his EMG nerve conduction velocity was discussed with the patient as well and indicated a mild neuropathy. He complains of neuropathic pain I informed him that there were 3 groups of medications used for the treatment of neuropathic pain including anticonvulsants such as gabapentin antidepressants as tricyclic antidepressants and duloxetine and pain medications such as tramadol and narcotics which we would like to avoid. I recommended gabapentin for his neuropathic pain the side effects of drowsiness and dizziness were discussed. I informed him that we would start low 300 mg at bedtime and gradually increasing it over several weeks to 300 mg 3 times a day. 3. Joint pain I recommended the patient follow closely with Dr. Sepulveda of the orthopedic service for further management of this complaint. I informed him that this was not my specialty. 4. Dry skin and itching I recommended he discuss this with Dr. Santino Funk his primary care. Hewill be seen for a follow-up for his neuropathic pain and response to treatment in 4-6 weeks. Medications Current Outpatient Medications: acetaminophen (TYLENOL) 500 [...] for pain, Disp: 60 tablet, Rfl: 1 donepeziL (ARICEPT) 10 mg tablet, Take 1 [...] homeopathic muscle cramp medications, Disp: , Rfl: lidocaine (ASPERCREME) 4 % adhesive patch,medicated, Place 1 patch on the skin daily for 12 days, Disp: 12 patch, Rfl: 0 senna-docusate (PERICOLACE) 8.6-50 mg, Take [...] of condyle of left femur (CMS/HCC) (HCC) 08/30/2018 Closed fracture of left tibial plateau [...] of breast 02/01/2018 Edema 04/04/2020 Intermittent claudication ([facility]) ([facility]) 04/04/2020 Iron deficiency anemia 04/04/2020 Peripheral vascular disease ([facility]) ([facility]) 04/04/2020 Pain due to total right knee replacement ([facility]) ([facility]) 04/28/2022 Hamstring tendinitis of right thigh 04/28/2022 Quadriceps weakness 04/28/2022 Idiopathic peripheral neuropathy Abnormality of gait and mobility Resolved Ambulatory Problems Diagnosis Date Noted No Resolved Ambulatory Problems Past Medical History: Diagnosis Date Acute gastric ulcer without hemorrhage or perforation Alzheimer's dementia ([facility]) Asthma Back pain Cataract Clotting disorder ([facility]) ([facility]) Cramps of lower extremity Diverticulitis of colon Easy bruisability Fatigue Frequent urination Gastroesophageal reflux disease Hypothyroidism Incontinence of urine Muscle weakness Osteoarthritis Peptic ulcer Seizures ([facility]) ([facility]) 1997 SOB (shortness of breath) on [...] or 4 Frequency of Binge Drinking: Never DROUS AMMONIA PRODUCTION SUPERVISOR documented in this encounter Plan of Treatment Upcoming Encounters Date Type Department Care Team (Latest Contact Info) Description 10/23/2024 10:00 AM ANHYDROUS AMMONIA PRODUCTION SUPERVISOR Hospital Encounter [facility] Operating Room [address] [place] [address] [place] [address] [address] 10/23/2024 10:00 AM ANHYDROUS AMMONIA PRODUCTION SUPERVISOR - 10/23/2024 1:00 PM ANHYDROUS AMMONIA PRODUCTION SUPERVISOR Surgery [facility] Operating Room [address] [place] [address] [place] [address] [facility] [address] [place] [address] ARTHROPLASTY TOTAL KNEE LEFT Scheduled Procedures Name Priority Associated Diagnoses Date/Ti me ARTHROPLASTY TOTAL KNEE left knee osteoarthritis 10/23/2024 10:00 AM ANHYDROUS AMMONIA PRODUCTION SUPERVISOR ESOPHAGOGASTRODUODENOSCOPY Dysphagia, unspecified type documented as of this encounter Visit Diagnoses Diagnosis Polyneuropathy- Primary Unspecified hereditary and idiopathic peripheral neuropathy Neuropathic pain Pruritus Unspecified pruritic disorder Polyarthralgia Pain in joint, multiple sites documented in this encounter Care Teams Cattle Care Worker Relationship Specialty [place] [address] [address] [facility] [address] PCP - General Internal Medicine 09/30/22 05/04/23 Unknown, Notinfile 03/12/22 [place] [address] [facility] [place] [address] 03/12/22 documented as of this encounter
--- OUTSIDE RECORDS SUMMARY | 2024-10-11 01:59 | XMS_ITS | Encounter Summary ---
Author Organization [facility] Address [address] [facility] [address] [place] [address] Care Team Providers Care Field Reimbursement Manager Name Role Phone Santino Funk MD Primary Care Provider + Reason for Referral * Diagnostic Imaging (Routine) - Closed Specialty Diagnoses / Procedures Referred By Contboone t Referred To Contact Diagnoses Hx of total knee replacement, right Procedures XR Knee Right 3 [place] [address] [address] Phone: tel: fax: [facility] Referral ID Status Reason Start Date Expiration Date Visits Re quested Visits Authorized [id number] Closed 01/09/2022 02/08/2023 1 1 Reason for Visit * Reason Comments Follow-up 1 mo f/u Post-op 1 mo f/u Encounter Details Date Type Department Care Team (Late st Contact Info) Description 01/09/2022 8:00 AM CDT [facility] [address] [address] [place] [address] [address] Hx of total knee replacement, right (Primary Dx); Aftercare following right knee joint replacement surgery Social History Tobacco Use Types Packs/Day Years [...] relatives? Three times a week 11/25/2021 Attends [employer] Services Not on file 11/25 Active Member of Clubs or Organizations Not on f ile 11/25/2021 Attends Club or Organization Meetings Not on tomas e 11/25/2021 Are you , , di vorced, , never , or living with a partner? 11/25/2021 AUDIT-C Answer Date Recorded Q1: How often do you have a drink containing alc ohol? Monthly or less 11/18/2021 Q2: How many drinks containi ng alcohol do you have on a typical day when you are drinking? 1 or 2 11/18/2021 Q3: How often do you have si x or more drinks on one occasion? Never 11/18/2021 PHQ-2 Answer Date Recorded PHQ-2 Score 0 [...] on file Legal Sex Male 3:25 PM GREY PERCHER Gender Identity Not on file Sexual Orientation Not on file documented as of this encounter Last Filed Vital Signs Vital Sign Reading Time Taken Comments Blood Pressure - - Pulse - - Temperature - - Respiratory Rate - - Oxygen Saturation - - Inhaled Oxygen Concentration - - Weight 88.9 kg (196 lb) 01/09/2022 8:04 AM CDT Height 180.3 cm (5' 11 ) 01/09/2022 8:04 AM CDT Body Mass Index 27.34 01/09/2022 8:04 AM CDT documented in this encounter Ordered Prescriptions Prescription Sig Dispense Quantity Refills Last Filled Start Date End Date oxyCODONE-acetamin ophen (PERCOCET) 7.5-325 mg per tabletIndications: Pain Take 1 tablet by mouth every 4 (four) hours as needed for pain 42 tablet 01/09/2022 02/10/2022 documented in this encounter Progress Notes * Carol Aceves PA - 01/09/2022 8:00 AM CDT Images from the original note were not included. HISTORY OF PRESENT ILLNESS: Abrahan Gtz Jr. is seen for 6 weeks follow-up of his right total knee arthroplasty. The patient isdoing well without complaints except for the fact that he has some suture poking through a couple of places on his incision. He is wondering what to do about this. His states he is almost out ofmedication for pain as well. She is wondering if he can get a refill. He states he is not yet readyto go back to work and would like to have a note to be off work as well. He thought he would be doing better than this at this time. PHYSICAL EXAM: EFFUSION RIGHT: Minimal, with moderate soft tissue surrounding edema, as expected 6 weeks out from surgery INCISION: Healing nicely but he does have 2 small areas of suture that have poked through. These were removed without any difficulty using aseptic technique. He does have 1 tiny area at the midpoint of the incision has a small eschar as well. This appears to be healing nicely. I do not appreciate any protruding suture at this point. Active ROM Right: 5 to 120 Passive ROM Right: 0 to 125 Quad set: Yes Straight Leg Raise: Yes with 5 degree extensor lag Neurologic Exam: Neurologically Intact Vascular Exam: Palpable Gait: compensated Gait assistance: a cane X-RAYS: My interpretation of his x-rays today: Three views of his right knee including weight-bearing AP, lateral, and sunrise view show that the total knee components remain in excellent position. There has been no migration or failure of any of the components. His knee is congruent well aligned. IMPRESSION: 6 weeks status post right total knee arthoplasty. PLAN: Physical therapy ordered Ice and elevate Return to clinic in One month Patient given a new note to be off work until he is seen again in 1 month. He was given a new physical therapy order to continue working with range of motion as well as strengthening. We will see howhe does with this. He will return 1 month for re-evaluation. He does not need new x-rays at that time. He knows to call if he needs any further refills on his Percocet. His Percocet has been sent to his pharmacy with the decrease to the 7.5/325 mg dose. He knows to call with any further questions or concerns. LORI Herman Cosigned by George Sepulveda MD at 01/09/2022 11:22 AM CDT documented in this encounter Plan of Treatment Upcoming Encounters Date Type Department Care Team (Latest Contact Info) Description 10/23/2024 10:00 AM [facility] Hospital Encounter [facility] Operating Room [address] [place] [address] [place] [id number] [place] [address] 10/23/2024 10:00 AM GREY PERCHER - 10/23/2024 1:00 PM GREY PERCHER Surgery [facility] Operating Room [address] [place] [address] [place] [address] [facility] [address] [place] [address] ARTHROPLASTY TOTAL KNEE LEFT Scheduled Procedures Name Priority Associated Diagnoses Date/Ti me ARTHROPLASTY TOTAL KNEE left knee osteoarthritis 10/23/2024 10:00 AM GREY PERCHER ESOPHAGOGASTRODUODENOSCOPY Dysphagia, unspecified type documented as of this encounter Procedures Procedure Name Priority Date/Time Associated Diagnosis Comments XR KNEE RIGHT 3 VIEWS Schedule Routine, Read Routine (OP Routine) 01/09/2022 8:44 AM CDT Hx of total knee replacement, right documented in this encounter Results * XR Knee Right 3 View (01/09/2022 8:44 AM CDT) Anatomical Region Laterality Modality Lower Extremities, Knee Right Computed Radiography Narrative 01/09/2022 8:44 AM CDT My interpretation of his x-rays today: ??Three views of his right knee including weight-bearing AP, lateral, and sunrise view show that the total knee components remain in excellent position. ??There has been no migration or failure of any of the components. ??His knee is congruent well aligned. us Carol SANDOVAL IMG XR PROCEDURES Final Resu lt documented in this encounter Visit Diagnoses Diagnosis Hx of total knee replacement, right- Primary Aftercare following right knee joint replacement surgery documented in this encounter Discontinued Medications Medication Sig Discontinue Reason Start Date End Da te oxyCODONE-acetaminophen (PERCOCET) 10-325 mg per tabletIndications:Pain Take 1 tablet by mouth every 4 (four) hours as needed for pain Dose adjustment 12/09/2021 01/09/2022 documented as of this encounter Care Teams Field Reimbursement Manager Relationship Specialty [place] [address] [facility] [address] [place] [address] PCP - General 11/12/16 03/11/22 documented as of this encounter
--- OUTSIDE RECORDS SUMMARY | 2024-10-11 01:59 | XMS_ITS | Encounter Summary ---
Author Organization [facility] Address [address] [facility] [address] [place] [address] Care Team Providers Care Managed Services Consultant Name Role Phone No, Physician Primary Care Provider [phone] Unknown, Notinfile Unavailable Unavailable Santino Funk MD Unavailable [phone] Reason for Referral * Procedure (Routine) - Closed Specialty Diagnoses / Procedures Referred By Contac t Referred To Contact Diagnoses Primary osteoarthritis of both knees Procedures Large Joint (Hip, Knee, Shoulder) [place]jection: [place] [address] [place] [address] Phone: tel: fax: [facility] Referral ID Status Reason Start Date Expiration Date Visits Re quested Visits Authorized [id number] Closed 05/19/2022 06/18/2023 1 1 * Consultation (Routine) - Closed Specialty Diagnoses / Procedures Referred By Contac t Referred To Contact Vascular Surgery Diagnoses Edema of both lower extremities due to peripheral [place] [address] [address] [facility] [address] [place] [address] Phone: tel: fax: [place] [address] [address] [place] [address] Phone: tel: fax: Referral ID Status Reason Start Date Expiration Date V isits Requested Visits Authorized [id number] Closed Specialty Services Required 05/19/2022 06/18/2023 1 1 Question Answer Please select the performing region: [facility] (All Locations) [[id number]] To provider: MYRON MONGE [[id number]] # of visits: 1 Comments Bilateral peripheral edema Reason for Visit * Reason Comments Injections Encounter Details Date Type Department Care Team (Latest Contact Info) Description 05/19/2022 8:45 AM CDT Office [facility] [address] [phone] [place] [address] [address] Pain due to total right knee replacement, initial encounter ([facility]) (Primary Dx); Primary osteoarthritis of both knees; Edema of both lower extremities due to peripheral venous insufficiency Social History Tobacco Use Types Packs/Day Years [...] relatives? Three times a week 11/25/2021 Attends Yazidi Services Not on file 11/25 Active Member [...] in a prison (including now)? No 11/25/2021 Sex and Gender Information Value Date Recorded Sex Assigned at Not on file Legal Sex Male 3:25 PM TRAIN CONDUCTOR Gender Identity Not on file Sexual Orientation Not on file documented as of this encounter Last Filed Vital Signs Vital Sign Reading Time Taken Comments Blood Pressure - - Pulse - - Temperature - - Respiratory Rate - - Oxygen Saturation - - Inhaled Oxygen Concentration - - Weight - - Height 180.3 cm (5' 10.98 ) 05/19/2022 9:07 AM C DT Body Mass Index - - documented in this encounter Ordered Prescriptions Prescription Sig Dispense Quantity Refills Last Filled Start Date End Date diclofenac DR (VOLTAREN) 75 mg EC tablet Take 1 tablet (75 mg total) by mouth 2 (two) times a day Take with food. Do not take with other anti-inflammator y medication 60 tablet 05/19/2022 2 documented in this encounter Progress Notes * Jossie Montalvo PA - 05/19/2022 8:45 AM CDTAssociated Order(s): Large Joint (Hip, Knee, Shoulder) Injection: L knee Post-Procedure Diagnose(s): Primary osteoarthritis of both knees Images from the original note were not included. FOLLOW UP WITH INJECTION Subjective CHIEF COMPLAINT He had concerns including Injections of the Left Knee. HISTORY OF [...] rating. He did have his knee aspirated 2 weeks ago and checked for Synovasure, this was all negative for any evidence of infection. He is been started on meloxicam which he does not find to be helpful for this problem. Denies any locking or instability, states he has swelling in both of his legs which is longstanding. He is wearing compression stockings for this. The other knee is arthritic, he had been considering knee replacement surgery early next year. Thisknee stiffens and swells, has pain with weight-bearing. He would like an injection in the knee today. His other primary complaint today is bilateral lower extremity swelling, left worse than right. This is been a chronic problem and predates his knee replacement surgery. He is wearing compression stockings which does help some, however he finds the stockings actually bother his feet somewhat. He is anticipating getting some kskf-xpc-halnwwb arch supports because he stands and walks all day on concrete surfaces at [employer] where he works. He would like some other recommendations for his leg swelling. MEDICATIONS He has a current medication list which includes the following prescription(s): cholecalciferol, donepezil, levothyroxine, magnesium oxide, mirtazapine, omeprazole, oxybutynin xl, polyethylene glycol,senna-docusate, senna-docusate, tamsulosin, tizanidine, trazodone, turmeric root extract, UNABLE TOFIND, and diclofenac ALLERGIES He has No Known Allergies. Review [...] ORDERED) Assessment/Plan Abrahan was seen today for injections. Diagnoses and all orders for this visit: Pain due to total right knee replacement, initial encounter ([facility]) Primary osteoarthritis of both knees Edema of both lower extremities due to peripheral venous insufficiency - Ambulatory referral to Vascular Surgery; Future Other orders - diclofenac DR (VOLTAREN) 75 mg EC tablet; Take 1 tablet (75 mg total) by mouth 2 (two) times a day Take with food. Do not take with other anti-inflammatory medication Plan Lengthy discussion was had the patient regarding his situation. I reviewed his Synovasure results with him which were negative for any infection. He was asking about repeat aspiration which I did notrecommend given the relatively small effusion and the risk of introducing infection. He understandsthis. I suggested trying another anti-inflammatory which he would like to do, he will discontinue meloxicam was given a prescription for diclofenac. For the left knee, he was given an injection todayunder sterile conditions. Referral was also placed for vascular surgery to see if there are any other additional recommendations for his lower extremity edema, as he is already wearing compression stockings at this time. Follow up in 3 months. Pertinent exam, laboratory and imaging findings were [...] (Latest Contact Info) Description 10/23/2024 10:00 AM TRAIN CONDUCTOR Hospital Encounter [facility] Operating Room [address] [place] [address] [place] [id number] [place] [address] 10/23/2024 10:00 AM TRAIN CONDUCTOR - 10/23/2024 1:00 PM TRAIN CONDUCTOR Surgery [facility] Operating Room [address] [place] [address] [place] [address] [address] ARTHROPLASTY TOTAL KNEE LEFT Scheduled Procedures Name Priority Associated Diagnoses Date/Ti me ARTHROPLASTY TOTAL KNEE left knee osteoarthritis 10/23/2024 10:00 AM TRAIN CONDUCTOR ESOPHAGOGASTRODUODENOSCOPY Dysphagia, unspecified type Scheduled Referrals Name Type Priority Associated Diagnoses Orde r Schedule Ambulatory referral to Vascular Surgery Outpatient Referral Routine Edema of both lower extremities due to peripheral venous insufficiency Expected: 06/02/2022 (Approximate), Expires: 05/19/2023 documented as of this encounter Procedures Procedure Name Priority Date/Time Associated Diagnosis Comments KS ARTHROCENTESIS ASPIR&/INJ MAJOR JT/BURSA W/O US Routine 05/19/2022 8:45 AM CDT Primary osteoarthritis of both knees documented in this encounter Results * KS ARTHROCENTESIS ASPIR&/INJ MAJOR JT/BURSA W/O US (05/19/2022 8:45 AM CDT) Narrative Jossie Montalvo PA - 05/19/2022 8:45 AM CDT Jossie Montalvo PA ? 05/19/2022 12:06 PM Large Joint (Hip, Knee, Shoulder) Injection: [...] documented in this encounter Visit Diagnoses Diagnosis Pain due to total right knee replacement, initial encounter (HCC)- Primary Primary osteoarthritis of both knees Edema of both lower extremities due to peripheral venous insufficiency documented in this encounter Administered Medications Inactive Administered Medications - up to 3 most recent administrations Medication Order MAR Action Action Date Dose Rate Site lidocaine (XYLOCAINE) 10 mg/mL (1 %) injection 4 mL 4 mL, One-Time Injection, Starting on Wed05/19/22 at 1206, For 1 dose, Indications: Administration of Local AnesthesiaIndications:Administrati on of Local Anesthesia Given 05/19/2022 12:06 PM CDT 4 mL methylPREDNISolone acetate (DEPO-medrol) injection 80 mg 80 mg, intra-articular, One-Time Injection, Starting on Wed05/19/22 at 1206, For 1 doseIndications:Primary osteoarthritis of both knees Given 05/19/2022 12:06 PM CDT 80 mg documented in this encounter Discontinued Medications Medication Sig Discontinue Reason Start Date End Da te meloxicam (MOBIC) 15 mg tablet Take 1 tablet (15 mg total) by mouth daily Alternate therapy 04/28/2022 05/19/2022 documented as of this encounter Care Teams Managed Services Consultant Relationship Specialty Start Date End Date No, Physician PCP - General 05/14/22 09/29/22 Unknown, Notinfile 03/12/22 [place] [id number] [address] 03/12/22 documented as of this encounter
--- OUTSIDE RECORDS SUMMARY | 2024-10-11 01:59 | XMS_ITS | Encounter Summary ---
Author Organization [facility] Address [address] [facility] [address] [place] [address] Care Team Providers Care Bathhouse Attendant Name Role Phone Santino Funk MD Primary Care Provider + Reason for Visit * Diagnostic Imaging (Routine) - Closed Specialty Diagnoses / Procedures Referred By Dillan mccallum Referred To Contact Diagnoses Hx of total knee replacement, right Procedures XR Knee Right [address] [place] [address] [address] Phone: tel: fax: [facility] Referral ID Status Reason Start Date Expiration Date Visits Re quested Visits Authorized [id number] Closed 01/09/2022 02/08/2023 1 1 Encounter Details Date Type Department Care Team (Latest Contact Info) Description 01/09/2022 8:20 AM CDT - 01/09/2022 11:59 PM CDT Hospital Encounter [facility] [address] [address] Discharge Disposition: Discharge to home [...] relatives? 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) Take 1 tablet (10 mg total) by mouth nightly 30 tablet 5 09/11/2021 2 magnesium oxide (MAG-OX) 250 mg (150.8 mg elemental) tabletIndications :hypomagnesemia Take 1 tablet (250 mg total) by mouth nightly 4 mirtazapine (REMERON) 7.5 mg tablet TAKE 1 TABLET BY MOUTH ONCE DAILY AT NIGHT 12/19/2021 4 omeprazole (PriLOSEC) 20 mg capsule take 1 capsule by oral route every day before a meal 0 0 10/21/2016 4 oxyCODONE-acetami nophen (PERCOCET) 7.5-325 mg per tabletIndications :Pain Take 1 tablet by mouth every 4 (four) hours as needed for pain 42 tablet 01/09/2022 2 polyethylene glycol (MIRALAX) 17 gram packetIndications :constipation Take 1 packet (17 g total) by mouth daily as needed for constipation 4 senna-docusate (PERICOLACE) 8.6-50 mg Take 1 tablet by mouth nightly 4 senna-docusate (PERICOLACE) 8.6-50 mgIndications:con stipation Take 2 tablets by mouth 2 (two) times a day 60 tablet 2 11/26/2021 3 tiZANidine (ZANAFLEX) 2 mg tablet Take 2 tablets (4 mg total) by mouth nightly 1 to 2 tablets at bedtime 60 tablet 5 09/11/2021 2 traZODone (DESYREL) 50 mg tablet Take by [...] (Latest Contact Info) Description 10/23/2024 10:00 AM HANDS PARTER Hospital Encounter [facility] Operating Room [address] [place] [address] [place] [address] [address] 10/23/2024 10:00 AM HANDS PARTER - 10/23/2024 1:00 PM HANDS PARTER Surgery [facility] Operating Room [address] [place] [address] [place] [address] [address] ARTHROPLASTY TOTAL KNEE LEFT Scheduled Procedures Name Priority Associated Diagnoses Date/Ti me ARTHROPLASTY TOTAL KNEE left knee osteoarthritis 10/23/2024 10:00 AM HANDS PARTER ESOPHAGOGASTRODUODENOSCOPY Dysphagia, unspecified type documented as of [...] on filedocumented in this encounter Care Teams Bathhouse Attendant Relationship Specialty [place] [address] [address] [facility] [place] [address] PCP - General 11/12/16 03/11/22 documented as of this encounter
--- OUTSIDE RECORDS SUMMARY | 2024-10-11 01:59 | XMS_ITS | Encounter Summary ---
Author Organization [facility] Address [address] [facility] [address] [place] [address] Care Team Providers Care Resolution Specialist Name Role Phone Unknown, Notinfile Primary Care Provider Unavail able Unknown, Notinfile Unavailable Unavailable Santino Funk MD Unavailable [phone] Encounter Details Date Type Department Care Team (Latest Contact Info) Description 04/28/2022 3:29 PM CDT - 04/28/2022 11:59 PM CDT Hospital Encounter [facility] [address] [address] Discharge Disposition: Discharge to home [...] relatives? 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 Operating Room [address] [place] [address] [place] [address] [address] 10/23/2024 10:00 AM ATHLETIC MONITOR - 10/23/2024 1:00 PM ATHLETIC MONITOR Surgery [facility] Operating Room [address] [place] [address] [place] [address] [address] ARTHROPLASTY TOTAL KNEE LEFT Scheduled Procedures Name Priority Associated Diagnoses Date/Ti me ARTHROPLASTY TOTAL KNEE left knee osteoarthritis 10/23/2024 10:00 AM ATHLETIC MONITOR ESOPHAGOGASTRODUODENOSCOPY Dysphagia, unspecified type documented as of this encounter Procedures Procedure Name Priority Date/Time Associated Diagnosis Comments XR KNEE BILATERAL 3 VIEWS Schedule Routine, Read Routine (OP Routine) 04/28/2022 3:42 PM CDT Primary osteoarthritis of both knees documented in this encounter Results * XR Knee Bilateral 3 Views (04/28/2022 3:42 PM CDT) Anatomical Region Laterality Modality Lower Extremities, Knee Bilateral Computed Radiography Narrative 04/28/2022 3:51 PM CDT Radiographs of bilateral knees reviewed and interpreted. ??Right knee demonstrates stable total knee arthroplasty with hybrid fixation. ??There is no evidence of loosening or component failure. ??Left knee demonstrates [id number] tricompartmental joint space narrowing with subchondral sclerosis and spur formation consistent with grade 4 osteoarthritis George Sepulveda MD IMG XR PROCEDURES Final R esult documented in this encounter Visit Diagnoses Not on filedocumented in this encounter Care Teams Resolution Specialist Relationship Specialty Start Date End Date Unknown, Notinfile PCP - General 03/12/22 05/13/22 Unknown, Notinfile 03/12/22 [place] [address] [facility] [address] [place] [address] 03/12/22 documented as of this encounter
--- OUTSIDE RECORDS SUMMARY | 2024-10-11 01:59 | XMS_ITS | Encounter Summary ---
Author Organization [facility] Address [address] [facility] [address] [place] [address] Care Team Providers Care Pre Press Operator Name Role Phone Unknown, Notinfile Primary Care Provider Unavail able Unknown, Notinfile Unavailable Unavailable Santino Funk MD Unavailable [phone] Reason for Referral * Procedure (Routine) - Closed Specialty Diagnoses / Procedures Referred By Contac t Referred To Contact Diagnoses Primary osteoarthritis of both knees Pain due to total right knee replacement, initial encounter ([facility]) Procedures [place] [id number] [address] Phone: tel: fax: [facility] Referral ID Status Reason Start Date Expiration Date Visits Re quested Visits Authorized [id number] Closed 04/28/2022 05/28/2023 1 1 Reason for Visit * Reason Comments Follow-up Follow-up Encounter Details Date Type Department Care Team (Latest Contact Info) Description 04/28/2022 3:15 PM CDT Office [facility] [id number] [phone] [place] [address] [address] Primary osteoarthritis of both knees (Primary Dx); Pain due to total right knee replacement, initial encounter (HCC); Hamstring tendinitis of right thigh; Quadriceps weakness Social History Tobacco Use Types Packs/Day Years [...] slept in a halfway (including now)? No 11/25/2021 Sex and Gender Information Value Date Recorded Sex Assigned at Not on file Legal Sex Male 3:25 PM DIVIDEND CLERK Gender Identity Not on file Sexual Orientation Not on file documented as of this encounter Last Filed Vital Signs Vital Sign Reading Time Taken Comments Blood Pressure - - Pulse - - Temperature - - Respiratory Rate - - Oxygen Saturation - - Inhaled Oxygen Concentration - - Weight 95.3 kg (210 lb) 04/28/2022 3:22 PM CDT Height 180.3 cm (5' 10.98 ) 04/28/2022 3:22 PM C DT Body Mass Index 29.3 04/28/2022 3:22 PM CDT documented in this encounter Ordered Prescriptions Prescription Sig Dispense Quantity Refills Last Filled Start Date End Date meloxicam (MOBIC) 15 mg tablet Take 1 tablet (15 mg total) by mouth daily 30 tablet 11 04/28/2022 05/19/2022 documented in this encounter Progress Notes * George Sepulveda MD - 04/28/2022 3:15 PM CDTAssociated Order(s): Joint Aspiration Post-Procedure Diagnose(s): Primary osteoarthritis of both knees; Pain due to total right knee replacement, initial encounter (HCC) Images from the original note were not included. FOLLOW UP VISIT Subjective CHIEF COMPLAINT He had concerns including Follow-up of the Left Knee and Follow-up of the Right Knee. HISTORY OF PRESENT ILLNESS Patient returns today for follow-up evaluation of his right knee and re- evaluation of his left knee. Patient was most recently seen in February and had a corticosteroid injection in the left knee at that time. Patient continues to struggle with the left knee. He is concerned however because he has developed increasing pain in the right knee with difficulty ambulating due to quadriceps pain and weakness in addition to pain in the inside aspect of the knee. He also feels like he is tipping forward. Hestopped therapy to return to work. He is currently working at [employer]. Pain Assessment Pain Assessment: 0-10 Pain Score: 8 Pain Location: Knee Pain Orientation: Right, Left Pain Descriptors: Discomfort, Sore, Tightness Aggravating Factors: Walking MEDICATIONS He has a current medication list which includes the following prescription(s): aspirin, cholecalciferol, donepezil, levothyroxine, magnesium oxide, mirtazapine, omeprazole, oxybutynin xl, oxycodone-acetaminophen, polyethylene glycol, senna-docusate, senna-docusate, tamsulosin, tizanidine, trazodone, turmeric root extract, and UNABLE TO FIND. REVIEW OF SYSTEMS Review of Systems Constitutional: Negative for chills and fever. HENT: Negative for ear pain and rhinorrhea. Eyes: Negative for pain. Respiratory: Negative for cough, chest tightness and shortness of breath. Cardiovascular: Negative for chest pain and palpitations. Gastrointestinal: Negative for abdominal pain, constipation, diarrhea, nausea and vomiting. Endocrine: Negative for polydipsia and polyuria. Genitourinary: Negative for dysuria and urgency. Musculoskeletal: Negative for back pain and myalgias. Skin: Negative for rash. Neurological: Negative for light-headedness and headaches. Hematological: Negative for adenopathy. Does not bruise/bleed easily. Psychiatric/Behavioral: The patient is not nervous/anxious. Objective PHYSICAL EXAM Ht 180.3 cm (5' 10.98 ) Wt 95.3 kg (210 lb) BMI 29.30 kg/m?? Right knee Inspection Erythema: absent Cellulitis: absent Swelling: moderate Surgical scar/wound: present. The surgical scar/wound is healed. Skin temperature: normal Alignment: neutral Gait: antalgic Palpation Tenderness: present. The tenderness is located in the pes anserinus and medial hamstring (Quad tendon). Patellar tracking: normal Crepitus: negative Patella grind: [...] Erythema: absent Cellutlis: absent Swelling: moderate Effusion: absent Surgical scar/wound: present. The surgical scar/wound is healed. Skin temperature: normal Alignment: varus Gait: antalgic Palpation Tenderness: present. The tenderness is located in the patella and medial joint line. Patellar tracking: normal Crepitus: positive Patella grind: negative Range of motion Active extension: -5 Active flexion: 121-125 Flexion contracture: no. Extensor [...] Views Radiographs of bilateral knees reviewed and interpreted. Right knee demonstrates stable total knee arthroplasty with hybrid fixation. There is no evidence of loosening or component failure. Left kneedemonstrates [id number] tricompartmental joint space narrowing with subchondral sclerosis and spur formation consistent with grade 4 osteoarthritis Assessment/Plan Abrahan was seen today for follow-up and follow-up. Diagnoses and all orders for this visit: Primary osteoarthritis of both knees - XR Knee Bilateral 3 Views - Ambulatory referral order to Physical Therapy -; Future Hx of total knee replacement, right - Ambulatory referral order to Physical Therapy -; Future Hamstring tendinitis of right thigh - Ambulatory referral order to Physical Therapy -; Future Quadriceps weakness - Ambulatory referral order to Physical Therapy -; Future Joint Aspiration Performed by: George Sepulveda MD Authorized by: George Sepulveda MD Joint Aspiration: Indications: Indications: Joint swelling, pain and possible septic joint Location: Body area: Knee Joint: Right knee Local anesthesia used?: Yes Local anesthetic: Lidocaine 1% without epinephrine Procedure details: Needle size: 18 G Approach: Lateral Aspirate amount (ml): 30 Aspirate: Blood-tinged PLAN I discussed the nature of the patient's condition the office today. We discussed aspiration of the right knee to rule out potential infection. This was sent for Synovasure analysis. In addition I referred the patient back to therapy to work on quad and hamstring stretching eccentric strengthening. Patient does have advanced osteoarthritis in the left knee and I feel like him ambulating on a bent knee on that side is contributing significantly to his pathology on the right. We discussed the leftknee being a candidate for knee replacement the patient states the timing is not good as he has just started his job at [employer] and really likes it. We will contact the patient with the results of his Synovasure analysis and more treatment options will follow. I also prescribed Mobic in the office today for anti-inflammatory purposes. George Sepulveda MD documented in this encounter Plan of Treatment Upcoming Encounters Date Type Department Care Team (Latest Contact Info) Description 10/23/2024 10:00 AM DIVIDEND CLERK Hospital Encounter [facility] Operating Room [address] [place] [address] [place] [address] [address] 10/23/2024 10:00 AM DIVIDEND CLERK - 10/23/2024 1:00 PM DIVIDEND CLERK Surgery [facility] Operating Room [address] [place] [address] [place] [address] [address] ARTHROPLASTY TOTAL KNEE LEFT Scheduled Procedures Name Priority Associated Diagnoses Date/Ti me ARTHROPLASTY TOTAL KNEE left knee osteoarthritis 10/23/2024 10:00 AM DIVIDEND CLERK ESOPHAGOGASTRODUODENOSCOPY Dysphagia, unspecified type documented as of this encounter Procedures Procedure Name Priority Date/Time Associated Diagnosis Comments XR KNEE BILATERAL 3 VIEWS Schedule Routine, Read Routine (OP Routine) 04/28/2022 3:42 PM CDT Primary osteoarthritis of both knees [place] ARTHROCENTESIS ASPIR&/INJ MAJOR JT/BURSA W/O US Routine 04/28/2022 3:15 PM CDT Primary osteoarthritis of both knees Pain due to total right knee replacement, initial encounter ([facility]) documented in this encounter Results * XR Knee Bilateral 3 Views (04/28/2022 3:42 PM CDT) Anatomical Region Laterality Modality Lower Extremities, Knee Bilateral Computed Radiography Narrative 04/28/2022 3:51 PM CDT Radiographs of bilateral knees reviewed and interpreted. ??Right knee demonstrates stable total knee arthroplasty with hybrid fixation. ??There is no evidence of loosening or component failure. ??Left knee demonstrates [id number] tricompartmental joint space narrowing with subchondral sclerosis and spur formation consistent with grade 4 osteoarthritis us George Sepulveda MD IMG XR PROCEDURES Final R esult * [place] ARTHROCENTESIS ASPIR&/INJ MAJOR JT/BURSA W/O US (04/28/2022 3:15 PM CDT) Narrative George Sepulveda MD - 04/28/2022 3:15 PM CDT George Sepulveda MD ? 04/28/2022 ??4:16 PM Joint Aspiration Performed by: George Sepulveda MD Authorized by: George Sepulveda MD Joint Aspiration: Indications: ??Indications: ??Joint swelling, pain and possible septic joint Location: ??Body area: ??Knee Joint: ??Right knee ??Local anesthesia used?: Yes ?Local anesthetic: ??Lidocaine 1% without epinephrine Procedure details: ??Needle size: ??18 G ??Approach: ??Lateral ??Aspirate amount (ml): ??30 ??Aspirate: ??Blood-tinged us George Sepulveda MD IN CLINIC/BEDSIDE ORDERAB LES Final Result documented in this encounter Visit Diagnoses Diagnosis Primary osteoarthritis of both knees- Primary Pain due to total right knee replacement, initial encounter ([facility]) Hamstring tendinitis of right thigh Quadriceps weakness documented in this encounter Discontinued Medications Medication Sig Discontinue Reason Start Date End Da te aspirin 325 mg tablet Take 1 tablet (325 mg total) by mouth 2 (two) times a day Alternate therapy 11/26/2021 04/28/2022 documented as of this encounter Care Teams Pre Press Operator Relationship Specialty Start Date End Date Unknown, Notinfile PCP - General 03/12/22 05/13/22 Unknown, Notinfile 03/12/22 [place] [id number] [facility] [address] 03/12/22 documented as of this encounter
--- OUTSIDE RECORDS SUMMARY | 2024-10-11 01:59 | XMS_ITS | Encounter Summary ---
Author Organization [facility] Address [address] [place] [address] Care Team Providers Care Events Administrative Assistant Name Role Phone No, Physician Primary Care Provider [phone] Unknown, Notinfile Unavailable Unavailable Santnio Funk MD Unavailable [phone] Reason for Referral * Diagnostic Imaging (Routine) - Closed Specialty Diagnoses / Procedures Referred By Dillan mccallum Referred To Contact Diagnoses Swelling of both lower extremities Venous insufficiency Procedures [place] [address] [address] [place] [address] Phone: tel: fax: [facility] (All Locations) Referral ID Status Reason Start Date Expiration Date Visits Re quested Visits Authorized [id number] Closed 06/02/2022 07/02/2023 1 1 Reason for Visit * Diagnostic Imaging (Routine) - Closed Specialty Diagnoses / Procedures Referred By Dillan mccallum Referred To Contact Diagnoses Swelling of both lower extremities Venous insufficiency Procedures [place] [address] [address] [address] Phone: tel: fax: [facility] (All Locations) Referral ID Status Reason Start Date Expiration Date Visits Re quested Visits Authorized [id number] Closed 06/02/2022 07/02/2023 1 1 Encounter Details Date Type Department Care Team (Latest Contact Info) Description 06/23/2022 8:00 AM CDT - 06/23/2022 11:59 PM CDT Hospital Encounter [facility] [address] [place] [address] [place] [address] [facility] [address] [place] [address] Swelling of both lower extremities; Venous insufficiency Discharge Disposition: Discharge to home or self [...] relatives? Three times a week 11/25/2021 Attends [employer] Services Not on file 11/25 Active Member [...] on file Legal Sex Male 3:25 PM CUSTOMER DEVELOPMENT REPRESENTATIVE Gender Identity Not on file Sexual [...] capsule Take 1,000 mg by mouth nightly diclofenac DR (VOLTAREN) 75 mg EC tablet Take 1 tablet (75 mg total) by mouth 2 (two) times a day Take with food. Do not take with other anti-inflammatory medication 60 tablet 06/12/2022 donepeziL (ARICEPT) 10 mg tabletIndications :Late onset [...] (Latest Contact Info) Description 10/23/2024 10:00 AM CUSTOMER DEVELOPMENT REPRESENTATIVE Hospital Encounter [facility] Operating Room [address] [place] [address] [place] [address] [address] 10/23/2024 10:00 AM CUSTOMER DEVELOPMENT REPRESENTATIVE - 10/23/2024 1:00 PM CUSTOMER DEVELOPMENT REPRESENTATIVE Surgery [facility] Operating Room [address] [place] [address] [place] [address] [facility] [address] [place] [address] ARTHROPLASTY TOTAL KNEE LEFT Scheduled Procedures Name Priority Associated Diagnoses Date/Ti me ARTHROPLASTY TOTAL KNEE left knee osteoarthritis 10/23/2024 10:00 AM CUSTOMER DEVELOPMENT REPRESENTATIVE ESOPHAGOGASTRODUODENOSCOPY Dysphagia, unspecified type documented as of this encounter Procedures Procedure Name Priority Date/Time Associated Diagnosis Comments US VENOUS REFLUX BILATERAL Schedule Routine, Read Routine (OP Routine) 06/23/2022 10:01 AM CDT Swelling of both lower extremities Venous insufficiency documented in this encounter Results * US Venous Reflux Bilateral (06/23/2022 10:01 AM CDT) Anatomical Region Laterality Modality Vascular Bilateral Ultrasound 06/23/2022 10:0 6 AM CDT Impressions 06/23/2022 10:06 AM CDT No venous reflux demonstrated. ??IMPRESSION: 1. ??No evidence of DVT in either leg. 2. ??No venous reflux demonstrated. Criteria for venous valvular insufficiency or reflux is retrograde flow for greater than 500 milliseconds in the superficial venous system and retrograde flow for greater than 1000 milliseconds, in the standing position. Electronically signed by: Jhonny Smallwood II, D.O. Narrative 06/23/2022 10:06 AM CDT EXAMINATION: Bilateral lower venous duplex and extremity saphenous vein mapping, venous insufficiency study DATE: 06/23/2022 8:00 AM HISTORY: Swelling, Lower Extremity, BilateralSwelling, Lower Extremity, Bilateral Venous Insufficiency COMPARISON: Swelling. TECHNIQUE: Standard technique was performed for bilateral lower extremity venous duplex including grayscale and color Doppler venous imaging with spectral waveform analysis to evaluate for DVT. ??Similar technique was then performed for imaging of the bilateral greater and small saphenous veins was performed in the standing position. ??The legs were studied for venous reflux in the common femoral, femoral, profunda, popliteal, saphenofemoral junction, greater saphenous, saphenopopliteal junction, and small saphenous veins bilaterally. FINDINGS: No evidence of deep vein thrombosis in the bilateral lower extremities. ??Noninvasive venous studies cannot rule out an isolated calf vein obstruction. The following measurements were obtained for the greater saphenous vein (also noted if unable to locate or thrombosed): ?RIGHT ? Saphenofemoral junction ? 7.5 mm ? Proximal thigh ? 3.8 mm ? Mid thigh ?2.8 mm ? Distal thigh ?2.5 mm ? Proximal calf ? 2.0 mm ? Distal calf ?1.8 mm ?LEFT ? Saphenofemoral junction ? 6.0 mm ? Proximal thigh ? 3.1 mm ? Mid thigh ?2.8 mm ? Distal thigh ?2.2 mm ? Proximal calf ? 3.0 mm ? Distal calf ?1.2 mm ? The following measurements were obtained for the small saphenous vein: ?RIGHT ? Proximal calf ?2.0 mm ? Distal calf ?1.3 mm ?LEFT ? Proximal calf ?2.0 mm ? Distal calf ?2.3 mm ? Procedure Note Jhonny Smallwood II, DO - 06/23/2022 EXAMINATION: Bilateral lower venous duplex and extremity [...] calf 2.0 mm Distal calf 2.3 mm IMPRESSION: No venous reflux demonstrated. IMPRESSION: 1. No evidence of DVT in either leg. 2. No venous reflux demonstrated. Criteria for venous valvular insufficiency or reflux is retrograde flow for greater than 500 milliseconds in the superficial venous system and retrograde flow for greater than 1000 milliseconds, in the standing position. Electronically signed by: Jhonny Smallwood II D.OMason us Myron Eden MD IMG US PROCEDURES Final Resu lt documented in this encounter Visit Diagnoses Diagnosis Swelling of both lower extremities Venous insufficiency Unspecified venous (peripheral) insufficiency documented in this encounter Care Teams Events Administrative Assistant Relationship Specialty Start Date End Date No, Physician PCP - General 05/14/22 09/29/22 Unknown, Notinfile 03/12/22 [place] [address] [address] 03/12/22 documented as of this encounter
--- OUTSIDE RECORDS SUMMARY | 2024-10-11 01:59 | XMS_ITS | Encounter Summary ---
Author Organization [facility] Address [address] [facility] [address] [place] [address] Care Team Providers Care Treasurer Name Role Phone Santino Funk MD Primary Care Provider + Reason for Visit * Reason Comments Edema Encounter Details Date Type Department Care Team (Latest Contact Info) Description 12/26/2021 9:45 AM CDT Office Visit [facility] [address] [phone] [place] [address] [facility] [address] [place] [address] Primary osteoarthritis of both knees (Primary Dx); Hx of total knee replacement, right Social [...] relatives? Three times a week 11/25/2021 Attends [employer] Services Not on file 11/25 Active Member [...] Legal Sex Male 3:25 PM EXPLOSIVE OPERATOR GRENADE Gender Identity Not on file Sexual Orientation Not on file documented as of this encounter Last Filed Vital Signs Vital Sign Reading Time Taken Comments Blood Pressure - - Pulse - - Temperature - - Respiratory Rate - - Oxygen Saturation - - Inhaled Oxygen Concentration - - Weight - - Height 180.3 cm (5' 11 ) 12/26/2021 9:41 AM CDT Body Mass Index - - documented in this encounter Progress Notes * Carol Aceves PA - 12/26/2021 9:45 AM CDT Images from the original note were not included. FOLLOW UP VISIT Subjective CHIEF COMPLAINT He had concerns including Edema of the Right Knee. HISTORY OF PRESENT ILLNESS This is a 76-year-old male who is approximately 4 weeks out from right total knee arthroplasty. He is here today for re-evaluation of his right knee with increased pain and swelling after physical therapy. He is concerned that he has over done something and states that it feels like he has twisted his knee. He denies any trauma to the knee. He does state that the increase his physical therapy range of motion as well as strengthening. He is wondering if there is anything else he can do for this or if it is anything else we suggest. Does state that he has Voltaren gel home and is wondering if he could potentially use this as he feels that this knee is inflamed. Pain Assessment Pain Assessment: 0-10 Pain Score: 10 - Worst possible pain Pain Location: Knee Pain Orientation: Right Pain Descriptors: Numbness, Aching, Sharp, Throbbing, Discomfort, Shooting (edema) Pain Frequency: Constant/continuous Pain Onset: Ongoing Clinical Progression: Gradually worsening Result of Injury: No Work-Related Injury: No Pain Interventions: Medication (See MAR) MEDICATIONS He has a current medication list which includes the following prescription(s): aspirin, cholecalciferol, donepezil, levothyroxine, magnesium oxide, mirtazapine, omeprazole, oxybutynin xl, polyethylene glycol, senna-docusate, senna-docusate, tamsulosin, tizanidine, trazodone, turmeric root extract, UNABLE TO FIND, and oxycodone-acetaminophen. REVIEW OF SYSTEMS Review of Systems Objective PHYSICAL EXAM Ht 180.3 cm (5' 11 ) BMI 29.29 kg/m?? He is alert and oriented x3. He is in no acute distress. He is cooperative with the exam his incision is clean, dry, and intact. It appears to be healing very nicely. He does have some irritation a 1+ effusion to his right knee. He has tenderness along the medial joint line and into the proximal tibia. He has excellent range of motion from almost full extension to approximately 130?? of flexion. He has no difficulty with ankle range of motion. He does have decreased sensation lateral to the incision as expected. The rest of his incision appears to be intact to light touch. He has palpable distal pulses. He does have some mild edema to the knee and lower extremity as well. This is as expected. He is ambulating fairly easily and using a cane for his assistive device. He does have some difficulty rising from a seated position as expected. REVIEW OF X-RAYS/STUDIES/LABS none today Assessment/Plan Abrahan was seen today for edema. Diagnoses and all orders for this visit: Primary osteoarthritis of both knees Hx of total knee replacement, right PLAN This is a 76-year-old male who is here today to be re-evaluated for his right knee. It appears thathe has had some increased inflammation to the knee with the increase of strengthening and range of motion and physical therapy. He will ease off on this for a little bit. He may also use Voltaren gelwhich he has at home. He will follow up in 2 weeks as previously scheduled. We will see how he doeswith this. He knows that if he needs a refill for his pain medication, he will call us back. He also knows to call with any further questions or concerns or if anything worsens. He will need new weight-bearing x-rays of his right knee at his next visit as planned. LORI Herman documented in this encounter Plan of Treatment Upcoming Encounters Date Type Department Care Team (Latest Contact Info) Description 10/23/2024 10:00 AM [facility] Hospital Encounter [facility] Operating Room [address] [place] [address] [place] [address] [address] [address] 10/23/2024 10:00 AM EXPLOSIVE OPERATOR GRENADE - 10/23/2024 1:00 PM [facility] Surgery [facility] Operating Room [address] [place] [address] [place] [address] [address] [address] ARTHROPLASTY TOTAL KNEE LEFT Scheduled Procedures Name Priority Associated Diagnoses Date/Ti me ARTHROPLASTY TOTAL KNEE left knee osteoarthritis 10/23/2024 10:00 AM EXPLOSIVE OPERATOR GRENADE ESOPHAGOGASTRODUODENOSCOPY Dysphagia, unspecified type documented as of this encounter Visit Diagnoses Diagnosis Primary osteoarthritis of both knees- Primary Hx of total knee replacement, right documented in this encounter Historical Medications * This list may reflect changes made after this encounter. mirtazapine (REMERON) 7.5 mg tablet TAKE 1 TABLET BY MOUTH ONCE DAILY AT NIGHT 12/19/2021 01/07/2024 added in this encounter Care Teams Treasurer Relationship Specialty [place] [address] [address] PCP - General 11/12/16 03/11/22 documented as of this encounter
--- OUTSIDE RECORDS SUMMARY | 2024-10-11 01:59 | XMS_ITS | Encounter Summary ---
Author Organization [facility] Healthcare Address [address] [place] [address] Care Team Providers Care Workforce Staffing Advisor Name Role Phone Santino Funk MD Primary Care Provider + Encounter Details Date Type Department Care Team (Late st Contact Info) Description 12/17/2021 5:20 PM DIRECTOR OF BROADCAST Lab [address] [id number] Exposure to SARS-associated coronavirus Social History Tobacco Use Types Packs/Day Years [...] Legal Sex Male 3:25 PM DIRECTOR OF BROADCAST Gender Identity Not on file Sexual Orientation Not on file documented as of this encounter Plan of Treatment Upcoming Encounters Date Type Department Care Team (Latest Contact Info) Description 10/23/2024 10:00 AM DIRECTOR OF BROADCAST Hospital Encounter [facility] Operating Room [address] [place] [address] Grey Dykes MD [address] [place] [address] 10/23/2024 10:00 AM DIRECTOR OF BROADCAST - 10/23/2024 1:00 PM DIRECTOR OF BROADCAST Surgery [facility] Operating Room [address] [place] [address] [place] [address] [place] [address] ARTHROPLASTY TOTAL KNEE LEFT Scheduled Procedures Name Priority Associated Diagnoses Date/Ti me ARTHROPLASTY TOTAL KNEE left knee osteoarthritis 10/23/2024 10:00 AM DIRECTOR OF BROADCAST ESOPHAGOGASTRODUODENOSCOPY Dysphagia, unspecified type documented as of this encounter Procedures Procedure Name Priority Date/Time Associated Diagnosis Comments EGFR Routine 12/17/2021 2:48 PM DIRECTOR OF BROADCAST INFLUENZA A/B, RSV, AND COVID-19 PCR Routine 12/17/2021 2:41 PM DIRECTOR OF BROADCAST Exposure to SARS-associated coronavirus documented in this encounter Results * eGFR (12/17/2021 2:48 PM DIRECTOR OF BROADCAST) eGFR 59 mL/min/1. 73 m2 MARVIN FISHER Comment: Interpretive [...] interpretive data was last reviewed 2021. Blood 12/17/2021 2:48 PM DIRECTOR OF BROADCAST 12/17/2021 5:04 PM DIRECTOR OF BROADCAST Santino Funk MD LAB BLOOD ORDERABLES Fin al Result Performing Organization Address [facility] Co de Phone Number MARVIN FISHER [phone] [address] [place] [address] * Influenza A/B, RSV, and COVID-19 PCR Nasopharyngeal (12/17/2021 2:41 PM DIRECTOR OF BROADCAST) COVID-19 RNA Negative Negative [facility] Influenza A RNA Negative Negative [facility] Influenza B RNA Negative Negative [facility] RSV RNA Negative Negative [facility] Comment: Interpretive data: This test is performed using the [employer] Xpert Xpress CoV-2/Flu/RSV plus assay. This is a multiplex, real-time reverse transcriptase PCR assay intended for the qualitative detection of nucleic acid from SARS-CoV-2, influenza A, influenza B, and respiratory syncytial virus. This assay has been reviewed by the FDA for Emergency Use Authorization (EUA). The performance characteristics have been verified by the performing laboratory. Results must be considered in the clinical context, and a negative result does not rule out infection. Interpretive Data last revised 2021. First COVID-19 test? No [facility] Employeed in healthcare? Unknown [facility] Group care resident? Unknown [facility] Hospitalized? No [facility] Is patient in ICU? No [facility] Symptomatic as defined by CDC? Yes [facility] Nasopharyngeal 12/17/2021 2: 41 PM DIRECTOR OF BROADCAST 12/17/2021 9:14 PM DIRECTOR OF BROADCAST Narrative [facility] - 12/17/2021 10:18 PM DIRECTOR OF BROADCAST Date of Symptom Onset->12/17/21 Reason for testing?->Symptomatic Known exposure to confirmed or suspected COVID-19 case?->No Santino Funk MD LAB MICROBIOLOGY - GENER AL ORDERABLES Final Result Performing Organization Address [facility] Co de Phone Number MARVIN FISHER [phone] [address] Department [place] [address] documented in this encounter Visit Diagnoses Diagnosis Exposure to SARS-associated coronavirus documented in this encounter Additional Health Concerns Infection Onset Date Last Indicated Resolved Time COVID: Suspected 12/17/2021 12/17/2021 12/17/2021 10:19 PM DIRECTOR OF BROADCAST documented as of this encounter Care Teams Workforce Staffing Advisor Relationship Specialty [place] [address] [facility] [place] [address] PCP - General 11/12/16 03/11/22 documented as of this encounter
--- OUTSIDE RECORDS SUMMARY | 2024-10-11 01:59 | XMS_ITS | Encounter Summary ---
Author Organization [facility] Address [address] [place] [address] Care Team Providers Care Passenger Booking Clerk Name Role Phone Santino Funk MD Primary Care Provider + Reason for Visit * Reason Onset Date Comments [place] 02/23/2022 Encounter Details Date Type Department Care Team (Late st Contact Info) Description 02/23/2022 Telephone [facility] [address] [facility] [address] [place] [address] [place] [address] [facility] [address] [place] [address] [place] Social History Tobacco Use Types Packs/Day Years [...] relatives? Three times a week 11/25/2021 Attends Baptism Services Not on file 11/25 Active Member [...] [place] [facility] ([facility])? No 11/25/2021 Sex and Gender Information Value Date Recorded Sex Assigned at Not on file Legal Sex Male 3:25 PM FLUX PLANT OPERATOR Gender Identity Not on file Sexual Orientation Not on file documented as of this encounter Miscellaneous Notes * Telephone Encounter - Paty López - 02/26/2022 12:13 PM CDT Briana completed handicap placard and Jossie signed it. Briana notified the patient and he picked it upon 02/25/22. * Telephone Encounter - Giulia Wallis PA - 02/23/2022 3:46 PM CDT Derick patient. Samuel are in the office tomorrow-Please place form in one of their folders to sign. Thank you * Telephone Encounter - Ptay López - 02/23/2022 1:48 PM CDT Patient is requesting an [place] plac[place]. documented in this encounter Plan of Treatment Upcoming Encounters Date Type Department Care Team (Latest Contact Info) Description 10/23/2024 10:00 AM FLUX PLANT OPERATOR Hospital Encounter [facility] Operating Room [address] [place] [address] [place] [address] [address] 10/23/2024 10:00 AM FLUX PLANT OPERATOR - 10/23/2024 1:00 PM FLUX PLANT OPERATOR Surgery [facility] Operating Room [address] [place] [address] [place] [address] [address] ARTHROPLASTY TOTAL KNEE LEFT Scheduled Procedures Name Priority Associated Diagnoses Date/Ti me ARTHROPLASTY TOTAL KNEE left knee osteoarthritis 10/23/2024 10:00 AM FLUX PLANT OPERATOR ESOPHAGOGASTRODUODENOSCOPY Dysphagia, unspecified type documented as of this encounter Visit Diagnoses Not on filedocumented in this encounter Care Teams Passenger Booking Clerk Relationship Specialty [place] [address] [facility] [address] [place] [address] PCP - General 11/12/16 03/11/22 documented as of this encounter
--- OUTSIDE RECORDS SUMMARY | 2024-10-11 01:59 | XMS_ITS | Encounter Summary ---
Author Organization [facility] Address [address] [place] [address] Phone Care Team Providers Care Manager Programs Name Role Phone No, Physician Primary Care Provider [phone] Unknown, Notinfile Unavailable Unavailable Santino Funk MD Unavailable [phone] Reason for Referral * Diagnostic Imaging (Routine) - Closed Specialty Diagnoses / Procedures Referred By Dillan mccallum Referred To Contact Diagnoses Swelling of both lower extremities Venous insufficiency Procedures [place] [address] [address] [place] [address] Phone: tel: fax: [facility] (All Locations) Referral ID Status Reason Start Date Expiration Date Visits Re quested Visits Authorized [id number] Closed 06/02/2022 07/02/2023 1 1 Encounter Details Date Type Department Care Team (Late st Contact Info) Description 06/02/2022 Orders Only [facility] Surgery [address] [facility] [address], [place] [address] [place] [address] [address], [place] [address] Swelling of both lower extremities; Venous insufficiency Social History Tobacco Use Types Packs/Day [...] relatives? Three times a week 11/25/2021 Attends [employer] Not on file 11/25 Active Member [...] on file Legal Sex Male 3:25 PM BORING MACHINE OPERATOR DOUBLE END Gender Identity Not on file Sexual Orientation Not on file documented as of this encounter Plan of Treatment Upcoming Encounters Date Type Department Care Team (Latest Contact Info) Description 10/23/2024 10:00 AM BORING MACHINE OPERATOR DOUBLE END Hospital Encounter [facility] Operating Room [address] [place] [address] [place] [address] [address] 10/23/2024 10:00 AM BORING MACHINE OPERATOR DOUBLE END - 10/23/2024 1:00 PM BORING MACHINE OPERATOR DOUBLE END Surgery [facility] Operating Room [address] [place] [address] [place] [address] [address] ARTHROPLASTY TOTAL KNEE LEFT Scheduled Procedures Name Priority Associated Diagnoses Date/Ti me ARTHROPLASTY TOTAL KNEE left knee osteoarthritis 10/23/2024 10:00 AM BORING MACHINE OPERATOR DOUBLE END ESOPHAGOGASTRODUODENOSCOPY Dysphagia, unspecified type documented as of this encounter Results * US Venous Reflux [...] [place] II D.OMason us Myron Eden MD IM US PROCEDURES Final Resu lt documented in this encounter Visit Diagnoses Diagnosis Swelling of both lower extremities Venous insufficiency Unspecified venous (peripheral) insufficiency Swelling of both lower extremities Venous insufficiency Unspecified venous (peripheral) insufficiency documented in this encounter Care Teams Manager Programs Relationship Specialty Start Date End Date No, Physician PCP - General 05/14/22 09/29/22 Unknown, Notinfile 03/12/22 [place] [address] [facility] [address] [place] [address] 03/12/22 documented as of this encounter
--- OUTSIDE RECORDS SUMMARY | 2024-10-11 01:59 | XMS_ITS | Encounter Summary ---
Author Organization [facility] Healthcare Address [address] [place] [address] Care Team Providers Care Kiln Burner Name Role Phone Santino Funk MD Primary Care Provider + Encounter Details Date Type Department Care Team (Late st Contact Info) Description 12/17/2021 5:35 PM COTTON SEED CULLER Lab [address] [id number] Social History Tobacco Use Types Packs/Day Years [...] relatives? Three times a week 11/25/2021 Attends [employer] Services Not on file 11/25 Active Member [...] slept in a intermediate (including now)? No 11/25/2021 Sex and Gender Information Value Date Recorded Sex Assigned at Not on file Legal Sex Male 3:25 PM COTTON SEED CULLER Gender Identity Not on file Sexual Orientation Not on file documented as of this encounter Plan of Treatment Upcoming Encounters Date Type Department Care Team (Latest Contact Info) Description 10/23/2024 10:00 AM COTTON SEED CULLER Hospital Encounter [facility] Operating Room [address] [place] [address] [place] [address] [address] [address] 10/23/2024 10:00 AM COTTON SEED CULLER - 10/23/2024 1:00 PM COTTON SEED CULLER Surgery [facility] Operating Room [address] [place] [address] [place] [address] [address] [facility] [address] [place] [address] ARTHROPLASTY TOTAL KNEE LEFT Scheduled Procedures Name Priority Associated Diagnoses Date/Ti me ARTHROPLASTY TOTAL KNEE left knee osteoarthritis 10/23/2024 10:00 AM COTTON SEED CULLER ESOPHAGOGASTRODUODENOSCOPY Dysphagia, unspecified type documented as of this encounter Visit Diagnoses Not on filedocumented in this encounter Additional Health Concerns Infection Onset Date Last Indicated Resolved Time COVID: Suspected 12/17/2021 12/17/2021 12/17/2021 10:19 PM COTTON SEED CULLER documented as of this encounter Care Teams Kiln Burner Relationship Specialty Start Date [place] [address] [address] [facility] [address] [place] [address] PCP - General 11/12/16 03/11/22 documented as of this encounter
--- OUTSIDE RECORDS SUMMARY | 2024-10-11 01:59 | XMS_ITS | Encounter Summary ---
Author Organization [facility] Address [address] [place] [address] Care Team Providers Care Marine Geologist Name Role Phone Santino Funk MD Primary Care Provider + Reason for Visit * Reason Comments Alzheimer's Disease Encounter Details Date Type Department Care Team (Late st Contact Info) Description 03/11/2022 9:15 AM CDT Office Visit [facility] [address] 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) Social History Tobacco Use Types Packs/Day [...] on file Legal Sex Male 3:25 PM VICE PRESIDENT OF INSTRUCTION Gender Identity Not on file Sexual Orientation Not on file documented as of this encounter Last Filed Vital Signs Vital Sign Reading Time Taken Comments Blood Pressure 130/70 03/11/2022 9:38 AM CDT Pulse 48 03/11/2022 9:38 AM CDT Temperature - - Respiratory Rate 12 03/11/2022 9:38 AM CDT Oxygen Saturation - - Inhaled Oxygen Concentration - - Weight 90.9 kg (200 lb 6.4 oz) 03/11/2022 9:38 A M CDT Height 180.3 cm (5' 11 ) 03/11/2022 9:38 AM CDT Body Mass Index 27.95 03/11/2022 9:38 AM CDT documented in this encounter Ordered Prescriptions Prescription Sig Dispense Quantity Refills Last Filled Start Date End Date tiZANidine (ZANAFLEX) 2 mg tablet Take 2 tablets (4 mg total) by mouth nightly 1 to 2 tablets at bedtime 60 tablet 5 03/11/2022 3 donepeziL (ARICEPT) 10 mg tabletIndications: 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 is a 76 y.o. male with essential tremor dementia of the Alzheimer's type restless leg syndrome muscle cramps. HPI The patient returns today for re-evaluation and follow-up. His only complaint is discomfort in bothknees. He is planning to return to work at [employer]. Tremors have not progressed and do not interferewith his daily activities. Restless leg syndrome does not bother him as much however he did not fill his prescription for Horizant. Memory loss has not progressed she remains independent in his self-care and gait. Muscle cramps are well controlled with generic Zanaflex there are no other complaintsexcept for urinary incontinence. The Review of Systems Constitutional: Negative for activity [...] dysuria, flank pain, frequency and urgency. Musculoskeletal: Positive for arthralgias. Negative for back pain, gait problem, joint swelling andneck pain. Skin: Negative for color change and [...] not nervous/anxious. Objective: Neurological Exam Mental Status Awake and [...] and symmetric in all four extremities. Coordination [id number], rapid alternating movements and apfu-oy-olth normal bilaterally without dysmetria. Gait Casual gait is normal including stance, stride, and arm swing. Physical Exam Vitals reviewed. Constitutional: General: He [...] warm. Neurological: Mental Status: He is alert. Coordination: Coordination is intact. Deep Tendon Reflexes: Strength normal and reflexes are normal and symmetric. Psychiatric: Speech: Speech normal. Assessment/Plan: 1. Dementia of the Alzheimer's type the condition has not progressed donepezil will be continued atthe current dose of 10 mg at bedtime. 2. Muscle cramps this is controlled by tizanidine which will be refilled. 3. Essential tremor monitor for progression. 4. Restless leg syndrome monitor for worsening. Return for a follow-up in 6 months. Medications Current Outpatient Medications: ??? aspirin 325 mg tablet, Take 1 tablet (325 mg total) by mouth 2 (two) times a day, Disp: 60 tablet, Rfl: 1 ??? cholecalciferol (VITAMIN D-3) 2000 unit capsule, Take 1 capsule (2,000 Units total) by mouth daily (Patient taking differently: Take 2,000 Units by mouth nightly), Disp: 30 capsule, Rfl: 3 ??? donepeziL (ARICEPT) 10 mg tablet, Take 1 tablet (10 mg total) by mouth nightly, Disp: 30 tablet, Rfl: 5 ??? levothyroxine (SYNTHROID) 150 mcg tablet, Take 150 mcg by mouth daily, Disp: , Rfl: ??? magnesium oxide (MAG-OX) 250 mg (150.8 mg elemental) tablet, Take 250 mg by mouth nightly, Disp: , Rfl: ??? mirtazapine (REMERON) 7.5 mg tablet, TAKE 1 TABLET BY MOUTH ONCE DAILY AT NIGHT, Disp: , Rfl: ??? omeprazole (PriLOSEC) 20 mg capsule, take 1 capsule by oral route every day before a meal, Disp: 0, Rfl: 0 ??? oxybutynin XL (DITROPAN-XL) 10 mg 24 hr tablet, Take 10 mg by mouth nightly, Disp: , Rfl: ??? oxyCODONE-acetaminophen (PERCOCET) 5-325 mg per tablet, Take 1 tablet by mouth every 4 (four) hours as needed for pain, Disp: 42 tablet, Rfl: 0 ??? polyethylene glycol (MIRALAX) 17 gram packet, Take 17 g by mouth daily as needed for constipation (Patient not taking: Reported on 02/10/2022), Disp: , Rfl: ??? senna-docusate (PERICOLACE) 8.6-50 mg, Take 1 tablet by mouth nightly (Patient not taking: Reported on 02/10/2022), Disp: , Rfl: ??? senna-docusate (PERICOLACE) 8.6-50 mg, Take 2 tablets by mouth 2 (two) times a day, Disp: 60 tablet, Rfl: 2 ??? tamsulosin (FLOMAX) 0.4 mg extended release capsule, Take 0.4 mg by mouth nightly, Disp: , Rfl: ??? tiZANidine (ZANAFLEX) 2 mg tablet, Take 2 tablets (4 mg total) by mouth nightly 1 to 2 tablets at bedtime, Disp: 60 tablet, Rfl: 5 ??? traZODone (DESYREL) 50 mg tablet, Take by mouth nightly 1/2 to 1 tablet, Disp: , Rfl: ??? turmeric root extract 500 mg capsule, Take 1,000 mg by mouth nightly, Disp: , Rfl: ??? UNABLE TO FIND, Take 1 each by mouth nightly Med Name: muscle cramp pain reliever Patient takes3 different OTC homeopathic muscle cramp medications, Disp: , Rfl: History Family History Problem Relation Age of Onset ??? Heart failure Other Family history of Congestive heart failure; ??? Heart disease Other Family history of Heart disease; ??? Osteoarthritis Other Family history of Osteoarthritis; ??? Osteoporosis Other Family history of Osteoporosis; ??? Heart attack Mother ??? Heart attack Father ??? Heart attack Sister Active Ambulatory Problems Diagnosis Date Noted ??? Primary osteoarthritis of both knees 08/08/2018 ??? Subchondral insufficiency fracture of condyle of left femur (CMS/HCC) (HCC) 08/30/2018 ??? Closed fracture of left tibial plateau with delayed healing 08/30/2018 ??? Closed fracture of right tibial plateau with delayed healing 08/30/2018 ??? Closed nondisplaced osteochondral fracture of left patella with delayed healing 08/30/2018 ??? Closed osteochondral fracture of patella, right, with delayed healing, subsequent encounter 08/30/2018 ??? Complex tear of medial meniscus of right knee as current injury 08/30/2018 ??? Complex tear of medial meniscus of left knee as current injury 08/30/2018 ??? Goiter 12/05/2019 ??? Breast pain, right 02/01/2018 ??? Cataract of right eye 06/22/2018 ??? Diplopia 03/08/2018 ??? Esotropia 03/08/2018 ??? 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 ??? Skin lesion of breast 02/01/2018 ??? Edema 04/04/2020 ??? Intermittent claudication (CMS/[facility]) ([facility]) 04/04/2020 ??? Iron deficiency anemia 04/04/2020 ??? Peripheral vascular disease (CMS/[facility]) ([facility]) 04/04/2020 Resolved Ambulatory Problems Diagnosis Date Noted ??? No Resolved Ambulatory Problems Past Medical History: Diagnosis Date ??? Acute gastric ulcer without hemorrhage or perforation ??? Alzheimer's dementia ([facility]) ??? Asthma ??? Cataract ??? Diverticulitis of colon ??? Gastroesophageal reflux disease ??? Hypothyroidism ??? Incontinence of urine ??? Osteoarthritis ??? Peptic ulcer ??? Seizures (CMS/HCC) ([facility]) 1997 ??? SOB (shortness of breath) on exertion ??? Vertigo ??? Visual disturbance Social History Socioeconomic History ??? Marital status: Spouse name: Not on file ??? Number of children: Not on file ??? Years of education: Not on file ??? Highest education level: Not on file Occupational History ??? Not on file Tobacco Use ??? Smoking status: Former Smoker Types: Cigarettes Start date: 1965 Quit date: 1967 Years since quittin.4 ??? Smokeless tobacco: Never Used Vaping Use ??? Vaping Use: Never used Substance and Sexual Activity ??? Alcohol use: Yes Alcohol/week: 1.0 standard drink Types: 1 Standard drinks or equivalent per week ??? Drug use: No ??? Sexual activity: Defer Other Topics Concern ??? Not on file Social History Narrative Caffeine use : (Added by TW Conv) Consumes alcohol : (Added by TW Conv) Social Determinants of Health Financial Resource Strain: Not on file Food Insecurity: No Food Insecurity ??? Worried About Running Out of Food in the Last Year: Never true ??? Ran Out of Food in the Last Year: Never true Transportation Needs: No Transportation Needs ??? Lack of Transportation (Medical): No ??? Lack of Transportation (Non-Medical): No Physical Activity: Not on file Stress: Not on file Social Connections: Unknown ??? Frequency of Communication with Friends and Family: Three times a week ??? Frequency of Social Gatherings with Friends and Family: Three times a week ??? Attends Voodoo Services: Not on file ??? Active Member of Clubs or Organizations: Not on file ??? Attends Club or Organization Meetings: Not on file ??? Marital Status: Intimate Partner Violence: Not on file Housing Stability: Unknown ??? Unable to Pay for Housing in the Last Year: No ??? Number of Places Lived in the Last Year: Not on file ??? Unstable Housing in the Last Year: No documented in this encounter Plan of Treatment Upcoming Encounters Date Type Department Care Team (Latest Contact Info) Description 10/23/2024 10:00 AM VICE PRESIDENT OF INSTRUCTION Hospital Encounter [facility] [address] [place] [address] [place] [id number] [address] 10/23/2024 10:00 AM VICE PRESIDENT OF INSTRUCTION - 10/23/2024 1:00 PM VICE PRESIDENT OF INSTRUCTION Surgery [facility] [address] [place] [address] [place] [address] [address] ARTHROPLASTY TOTAL KNEE LEFT Scheduled Procedures Name Priority Associated Diagnoses Date/Ti me ARTHROPLASTY TOTAL KNEE left knee osteoarthritis 10/23/2024 10:00 AM VICE PRESIDENT OF INSTRUCTION ESOPHAGOGASTRODUODENOSCOPY Dysphagia, unspecified type documented as of this encounter Visit Diagnoses Diagnosis Alzheimer's disease (HCC)- Primary Alzheimer's disease Restless leg syndrome Restless legs syndrome (RLS) Muscle cramps Essential tremor 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) documented in this encounter Discontinued Medications Medication Sig Discontinue Reason Start Date End Da te tiZANidine (ZANAFLEX) 2 mg tablet Take 2 tablets (4 mg total) by mouth nightly 1 to 2 tablets at bedtime Reorder 09/11/2021 03/11/2022 donepeziL (ARICEPT) 10 mg tabletIndications: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) Take 1 tablet (10 mg total) by mouth nightly Reorder 09/11/2021 03/11/2022 documented as of this encounter Care Teams Marine Geologist Relationship Specialty [place] [id number] [address] PCP - General 11/12/16 03/11/22 documented as of this encounter
--- OUTSIDE RECORDS SUMMARY | 2024-10-11 01:59 | XMS_ITS | Encounter Summary ---
Author Organization [facility] Address [address] [place] [address] Care Team Providers Care Obstetrics And Gynecology Professor Name Role Phone Unknown, Notinfile Primary Care Provider Unavail able Unknown, Notinfile Unavailable Unavailable Santino Funk MD Unavailable [phone] Reason for Visit * Reason Comments Follow-up Follow-up Encounter Details Date Type Department Care Team (Latest Contact Info) Description 03/17/2022 8:45 AM CDT Office Visit [facility] [address] [address] [place] [address] [address] Aftercare following right knee joint replacement surgery (Primary Dx); Primary osteoarthritis of both knees Social History Tobacco Use Types Packs/Day Years [...] on file 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 FOLLOW UP VISIT Subjective CHIEF COMPLAINT He had concerns including Follow-up of the Left Knee and Follow-up of the Right Knee. HISTORY OF PRESENT ILLNESS This is a 76-year-old male who is here today to be re-evaluated for his right knee status post total approximately 3 and half months ago. He appears to be doing better. However, he is still having weakness to the leg. He states he is still having a give out on him part of the time. He has been working diligently with physical therapy. He is trying to get back to work at [employer]. However, the he would result his apartment is telling him that he needs to be back without restrictions before he is able to return to work. He states that he was working there prior to his surgery and there were certain things that he could not do. he feels that he is ready to return to work at this point. Pain Assessment Pain Assessment: 0-10 Pain Score: 6 Pain Location: Knee Pain Orientation: Left, Right Pain Descriptors: Aching Pain Frequency: Constant/continuous Pain Onset: Ongoing Clinical Progression: Gradually improving Aggravating Factors: Standing, Walking, Bending Result of Injury: No Work-Related Injury: No Patient's Stated Pain Goal: No pain Pain Interventions: Rest, Medication (See MAR) MEDICATIONS He has a current medication list which includes the following prescription(s): tizanidine, aspirin,cholecalciferol, donepezil, levothyroxine, magnesium oxide, mirtazapine, omeprazole, oxybutynin xl,oxycodone-acetaminophen, polyethylene glycol, senna-docusate, senna-docusate, tamsulosin, trazodone, turmeric root extract, and UNABLE TO [...] Ht 180.3 cm (5' 11 ) Wt 93 kg (205 lb) BMI 28.59 kg/m?? He is alert and oriented x3. He is in no acute distress. He is cooperative with the exam. Incision is well healed. He does still have some mild to moderate edema but this is improving slowly. I do not appreciate any significant effusion. Still have some quad atrophy especially along the belly of the main quadriceps. This is just proximal to the tendon. The VMO and lateral appear to be doing well actually. He is able to straight leg raise against resistance. He is able to flex against resistance. This is not particularly painful for him. He is walking with a slight limp to his right lower extremity at times. He is not currently using an assistive device. He does not appear to have any pain w ith ligamentous testing for PCL, MCL, or LCL. The construct is stable with ACL testing as well. I do not appreciate any significant difficulty with ankle range of motion. He appears neurovascularly intact. REVIEW OF X-RAYS/STUDIES/LABS none today Assessment/Plan Abrahan was seen today for follow-up and follow-up. Diagnoses and all orders for this visit: Aftercare following right knee joint replacement surgery Primary osteoarthritis of both knees PLAN This is a 76-year-old male who is approximately 3 and half months out from right total knee arthroplasty. He appears to be doing fairly well but still has some atrophy to his quads. He will continue to work diligently with physical therapy. He will continue work on strengthening. After further discussion with the patient, I have sent him back to work without restriction. We will see how he does with this as well. He will continue to work with his home exercise program as well. We will see him back in 6 weeks for re-evaluation. He knows to call with any further questions or concerns. We did refill his pain medication today. LORI Herman documented in this encounter Plan of Treatment Upcoming Encounters Date Type Department Care Team (Latest Contact Info) Description 10/23/2024 10:00 AM ED TEACHER Hospital Encounter [facility] [address] [place] [address] [place] [address] [address] 10/23/2024 10:00 AM ED TEACHER - 10/23/2024 1:00 PM ED TEACHER Surgery [facility] [id number] [place] [address] [place] [address] [address] ARTHROPLASTY TOTAL KNEE LEFT Scheduled Procedures Name Priority Associated Diagnoses Date/Ti me ARTHROPLASTY TOTAL KNEE left knee osteoarthritis 10/23/2024 10:00 AM ED TEACHER ESOPHAGOGASTRODUODENOSCOPY Dysphagia, unspecified type documented as of this encounter Visit Diagnoses Diagnosis Aftercare following right knee joint replacement surgery- Primary Primary osteoarthritis of both knees documented in this encounter Care Teams Obstetrics And Gynecology Professor Relationship Specialty Start Date End Date Unknown, Notinfile PCP - General 03/12/22 05/13/22 Unknown, Notinfile 03/12/22 [place] [address] [facility] [address], [place] [address] 03/12/22 documented as of this encounter
--- OUTSIDE RECORDS SUMMARY | 2024-10-11 01:59 | XMS_ITS | Encounter Summary ---
Author Organization [facility] Address [address] [facility] [address] [place] [address] Care Team Providers Care Adult Family Home Program Manager Name Role Phone Santino Funk MD Primary Care Provider + Reason for Referral * Procedure (Routine) - Closed Specialty Diagnoses / Procedures Referred By Contac t Referred To Contact Diagnoses Primary osteoarthritis of both knees Procedures Large Joint (Hip, Knee, Shoulder) Injection: L knee Carol Aceves [place] [id number] [place] [address] Phone: tel: fax: [facility] Referral ID Status Reason Start Date Expiration Date Visits Re quested Visits Authorized [id number] Closed 02/10/2022 03/12/2023 1 1 Reason for Visit * Reason Comments Post-op Encounter Details Date Type Department Care Team (Latest Contact Info) Description 02/10/2022 8:00 AM CDT Office [facility] [id number] [address] [place] [address] [address] Aftercare following right knee joint [...] relatives? Three times a week 11/25/2021 Attends Nondenominational Services Not on file 11/25 Active Member [...] No 11/25/2021 Housing Stability Vital Sign Answer Kney e [...] in a senior care (including now)? 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 Gender Identity Not on file Sexual Orientation Not on file documented as of this encounter Last Filed Vital Signs Vital Sign Reading Time Taken Comments Blood Pressure 128/62 02/10/2022 8:19 AM CDT Pulse - - Temperature - - Respiratory Rate - - Oxygen Saturation - - Inhaled Oxygen Concentration - - Weight 90.7 kg (200 lb) 02/10/2022 8:19 AM CDT Height 180.3 cm (5' 10.98 ) 02/10/2022 8:19 AM C DT Body Mass Index 27.91 02/10/2022 8:19 AM CDT documented in this encounter Progress Notes * Carol Aceves PA - 02/10/2022 8:00 AM CDTAssociated Order(s): Large Joint (Hip, Knee, Shoulder) Injection: L knee Post-Procedure Diagnose(s): Primary osteoarthritis of both knees Images from the original note were not included. FOLLOW UP VISIT Subjective CHIEF COMPLAINT He had concerns including Post-op of the Right Knee. HISTORY OF PRESENT ILLNESS This is a 76-year-old male who is approximately 11 weeks out from a right total knee arthroplasty. He states that his right knee is doing somewhat better but he has been told by his employer, [employer],that he is not able to come back until he is as close to 100% as he can be. He is wondering what todo about this. 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 He is quite concerned about this and he also tells me that his left knee has been bothering him almost as much or more than his right knee. He is wondering if he could potentially get a cortisone shot in this as he knows that eventually he will need this knee replaced.However, he does not wish to consider left knee replacement at this time. Pain Assessment Pain Assessment: 0-10 Pain Score: 7 Pain Location: Knee Pain Orientation: Right Pain Descriptors: Aching, Sharp, Tightness, Throbbing, Shooting Multiple Pain Sites: Two Pain 2 Pain Score 2: 3 Pain Location 2: Knee Pain Orientation 2: Left Pain Descriptors 2: Aching MEDICATIONS He has a current medication list which includes the following prescription(s): cholecalciferol, donepezil, levothyroxine, magnesium oxide, mirtazapine, omeprazole, oxybutynin xl, oxycodone-acetaminophen, senna-docusate, tamsulosin, tizanidine, trazodone, turmeric root extract, UNABLE TO FIND, aspirin, polyethylene glycol, and senna-docusate. REVIEW OF SYSTEMS Review of [...] is not nervous/anxious. Objective PHYSICAL EXAM BP 128/62 Ht 180.3 cm (5' 10.98 ) Wt 90.7 kg (200 lb) BMI 27.91 kg/m?? Ortho Exam He is alert and oriented x3. He is in no acute distress. Cooperative with the exam. His right knee is doing well. His incision is clean, dry, and intact. He can get from a few degrees from full extension to approximately 120?? of flexion without difficulty. He still has some mild to moderate edema but a minimal effusion. He does not appear to have any significant difficulty with ankle range of motion. Sensation appears to be intact to light touch with the exception of slightly decreased lateralto the incision as expected. He is doing better with ambulation but is still limping to the right lower extremity at times. He is still using his cane as well. With his left knee, he can get from almost full extension to approximately 125?? of flexion without too much difficulty. He does have a small effusion here. He does have some mild surrounding soft tissue edema as well. He has tenderness atthe medial joint line as well as a little bit of the lateral but this is not as pronounced as the medial side. He has crepitus with range of motion as well. He appears neurovascularly intact to this side. REVIEW OF X-RAYS/STUDIES/LABS none today Assessment/Plan Abrahan was seen today for post-op. Diagnoses and all orders for this visit: Aftercare following right knee joint replacement surgery - Ambulatory referral order to Physical Therapy -; Future Primary osteoarthritis of both knees - Ambulatory referral order to Physical Therapy -; Future Large Joint (Hip, Knee, Shoulder) Injection: L knee Performed by: Carol Aceves PA Authorized by: Carol Aceves PA Large Joint Injection/Aspiration: Consent Given by: Patient Site marked: the procedure site was marked Verbal consent obtained: Yes Supporting Documentation: Indications: Pain and joint swelling Procedure Details: Location: Knee Site: L knee Needle Size: 22 G Approach: Anterolateral Medications: 4 mL lidocaine 20 mg/mL (2 %); 80 mg methylPREDNISolone acetate 80 mg/mL Patient tolerance: Patient tolerated the procedure well with no immediate complications PLAN This is a 76-year-old male who is here today to be re-evaluated for his bilateral knees, right status post total approximately 11 weeks ago and left with osteoarthritis with out current knee replacement. He does not wish to consider any surgery for the left this time but would like to consider cortisone injection. We discussed the risks and benefits of cortisone injection. He verbalized understanding of these and then we proceeded with the injection as above. He tolerated this well without complication. He knows that he can have injections to his left knee every 3 months if he needs them thisoften. We discussed his work situation and the restrictions that he was still require. We will put him off work for another month. He knows that he will likely have to apply for formal FMLA or short-term disability depending on what the company wants him to do. I have given him a work note stating that he will be off until we see him again. Hopefully by this time, the cortisone live had a chance to kick in and left side and he will be doing better with his right side. I have reordered his physical therapy to continue and we will see how he does with this. He will follow up in approximately 1 month for re-evaluation. He knows to call with any further questions or concerns. LORI Herman Cosigned by George Sepulveda MD at 02/10/2022 10:00 AM CDT documented in this encounter Plan of Treatment Upcoming Encounters Date Type Department Care Team (Latest Contact Info) Description 10/23/2024 10:00 AM HEAD HOST/HOSTESS Hospital Encounter [facility] Operating Room [address] [place] [id number] [place] [id number] [place] [address] 10/23/2024 10:00 AM HEAD HOST/HOSTESS - 10/23/2024 1:00 PM HEAD HOST/HOSTESS Surgery [facility] Operating Room [address] [place] [address] [place] [address] [address] ARTHROPLASTY TOTAL KNEE LEFT Scheduled Procedures Name Priority Associated Diagnoses Date/Ti me ARTHROPLASTY TOTAL KNEE left knee osteoarthritis 10/23/2024 10:00 AM HEAD HOST/HOSTESS ESOPHAGOGASTRODUODENOSCOPY Dysphagia, unspecified type documented as of this encounter Procedures Procedure Name Priority Date/Time Associated Diagnosis Comments ND ARTHROCENTESIS ASPIR&/INJ MAJOR JT/BURSA W/O US Routine 02/10/2022 8:00 AM CDT Primary osteoarthritis of both knees documented in this encounter Results * ND ARTHROCENTESIS ASPIR&/INJ MAJOR JT/BURSA W/O US (02/10/2022 8:00 AM CDT) Narrative George Sepulveda MD - 02/10/2022 8:00 AM CDT Carol Aceves PA ? 02/10/2022 ??9:55 AM Large Joint (Hip, Knee, Shoulder) Injection: L knee Performed by: Carol Aceves PA Authorized by: Carol Aceves PA Large Joint Injection/Aspiration: ??Consent Given by: ??Patient ??Site marked: the procedure site was marked ?Verbal consent obtained: Yes ?? Supporting Documentation: ??Indications: ??Pain and joint swelling Procedure Details: ??Location: ??Knee ??Site: ??L knee ??Needle Size: ??22 G ??Approach: ??Anterolateral ??Medications: ??4 mL lidocaine 20 mg/mL (2 %); 80 mg methylPREDNISolone acetate 80 mg/mL ??Patient tolerance: ??Patient tolerated the procedure well with no immediate complications us Carol SANDOVAL IN CLINIC/BEDSIDE ORDERABLES Final Result documented in this encounter Visit Diagnoses Diagnosis Aftercare following right knee joint replacement surgery- Primary Primary osteoarthritis of both knees documented in this encounter Administered Medications Inactive Administered Medications - up to 3 most recent administrations Medication Order MAR Action Action Date Dose Rate Site lidocaine (XYLOCAINE) 20 mg/mL (2 %) preservative free injection 4 mL 4 mL, One-Time Injection, Starting on Wed02/10/22 at 0955, For 1 doseIndications:Primary osteoarthritis of both knees Given 02/10/2022 9:55 AM CDT 4 mL methylPREDNISolone acetate (DEPO-medrol) injection 80 mg 80 mg, intra-articular, One-Time Injection, Starting on Wed02/10/22 at 0955, For 1 doseIndications:Primary osteoarthritis of both knees Given 02/10/2022 9:55 AM CDT 80 mg documented in this encounter Care Teams Adult Family Home Program Manager Relationship Specialty [place] [address] [facility] [place] [address] PCP - General 11/12/16 03/11/22 documented as of this encounter
--- OUTSIDE RECORDS SUMMARY | 2024-10-11 01:59 | XMS_ITS | Encounter Summary ---
Author Organization [facility] Address [address] [facility] [address] [place] [address] Care Team Providers Care Manager Materials Management Name Role Phone No, Physician Primary Care Provider [phone] Unknown, Notinfile Unavailable Unavailable Santino Funk MD Unavailable Encounter Details Date Type Department Care Team (Late st Contact Info) Description 06/12/2022 Orders Only [facility] [address] [address] [place] [address] [address] Social History Tobacco Use Types Packs/Day Years Used Date Smoking Tobacco: Former Cigarettes 1 [phone] Smokeless Tobacco: Never Alcohol Use Standard Drinks/Week [...] relatives? 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 Do not take with other anti-inflammator y medication 60 tablet 06/12/2022 2 documented in this encounter Plan of Treatment Upcoming Encounters Date Type Department Care Team (Latest Contact Info) Description 10/23/2024 10:00 AM EXPLOSIVES WORKER Hospital Encounter [facility] Operating Room [address] [place] [address] [place] [address] [address] 10/23/2024 10:00 AM EXPLOSIVES WORKER - 10/23/2024 1:00 PM EXPLOSIVES WORKER Surgery [facility] Operating Room [address] [place] [address] [place] [address] [id number] ARTHROPLASTY TOTAL KNEE LEFT Scheduled Procedures Name Priority Associated Diagnoses Date/Ti me ARTHROPLASTY TOTAL KNEE left knee osteoarthritis 10/23/2024 10:00 AM EXPLOSIVES WORKER ESOPHAGOGASTRODUODENOSCOPY Dysphagia, unspecified type documented as of this encounter Visit Diagnoses Not on filedocumented in this encounter Discontinued Medications Medication Sig Discontinue Reason Start Date End Da te diclofenac DR (VOLTAREN) 75 mg EC tablet Take 1 tablet (75 mg total) by mouth 2 (two) times a day Take with food. Do not take with other anti-inflammatory medication Reorder 05/19/2022 06/12/2022 documented as of this encounter Care Teams Manager Materials Management Relationship Specialty Start Date End Date No, Physician PCP - General 05/14/22 09/29/22 Unknown, Notinfile 03/12/22 [place] [address] [facility] [place] [address] 03/12/22 documented as of this encounter
--- OUTSIDE RECORDS SUMMARY | 2024-10-11 01:59 | XMS_ITS | Encounter Summary ---
Author Organization [facility] Address [address] [place] [address] Care Team Providers Care Blindstitch Lapel Padder Name Role Phone Unknown, Notinfile Primary Care Provider Unavail able No, Physician Primary Care Provider [phone] Unknown, Notinfile Unavailable Unavailable Santino Funk MD Unavailable Encounter Details Date Type Department Care Team (Late st Contact Info) Description 05/05/2022 Telephone [facility] at [address] [address] [place] [address] [facility] [address] [place] [address] Social History Tobacco Use Types [...] a long term (including now)? 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 Please inform patient to contact us to schedule if interested [phone] Thank You! documented in this encounter Plan of Treatment Upcoming Encounters Date Type Department Care Team (Latest Contact Info) Description 10/23/2024 10:00 AM GRANULIZING MACHINE OPERATOR Hospital Encounter [facility] Operating Room [address] [place] [address] [place] [address] [address] 10/23/2024 10:00 AM GRANULIZING MACHINE OPERATOR - 10/23/2024 1:00 PM GRANULIZING MACHINE OPERATOR Surgery [facility] Operating Room [address] [place] [address] [place] [address] [address] ARTHROPLASTY TOTAL KNEE LEFT Scheduled Procedures Name Priority Associated Diagnoses Date/Ti me ARTHROPLASTY TOTAL KNEE left knee osteoarthritis 10/23/2024 10:00 AM GRANULIZING MACHINE OPERATOR ESOPHAGOGASTRODUODENOSCOPY Dysphagia, unspecified type documented as of this encounter Visit Diagnoses Not on filedocumented in this encounter Care Teams Blindstitch Lapel Padder Relationship Specialty Start Date End Date Unknown, Notinfile PCP - General 03/12/22 05/13/22 No, Physician PCP - General 05/14/22 09/29/22 Unknown, Notinfile 03/12/22 [place] [address] [facility] [address] [address] 03/12/22 documented as of this encounter
--- OUTSIDE RECORDS SUMMARY | 2024-10-11 01:59 | XMS_ITS | Encounter Summary ---
Author Organization [facility] Address [address] [facility] [address] [place] [address] Care Team Providers Care Bookkeepers Supervisor Name Role Phone Santino Funk MD Primary Care Provider + Unknown, Notinfile Primary Care Provider Unavail able Unknown, Notinfile Unavailable Unavailable Santino Funk MD Unavailable [phone] Encounter Details Date Type Department Care Team (Late st Contact Info) Description 03/11/2022 Telephone [facility] [address] [address] [place] [address] [facility] [address] [place] [address] Social History Tobacco Use Types [...] relatives? 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 paperwork. * Telephone Encounter - Joana Suresh - 03/11/2022 12:33 PM CDT Patient requesting new work note but patient requesting a return call to discuss limitations on work note. [phone] documented in this encounter Plan of Treatment Upcoming Encounters Date Type Department Care Team (Latest Contact Info) Description 10/23/2024 10:00 AM LAMP CLEANER Hospital Encounter [facility] Operating Room [address] [place] [address] [place] [address] [address] 10/23/2024 10:00 AM LAMP CLEANER - 10/23/2024 1:00 PM LAMP CLEANER Surgery [facility] Operating Room [address] [place] [address] [place] [address] [address] ARTHROPLASTY TOTAL KNEE LEFT Scheduled Procedures Name Priority Associated Diagnoses Date/Ti me ARTHROPLASTY TOTAL KNEE left knee osteoarthritis 10/23/2024 10:00 AM LAMP CLEANER ESOPHAGOGASTRODUODENOSCOPY Dysphagia, unspecified type documented as of this encounter Visit Diagnoses Not on filedocumented in this encounter Care Teams Bookkeepers Supervisor Relationship Specialty [place] [address] [facility] [address] [place] [address] PCP - General 11/12/16 03/11/22 Unknown, Notinfile PCP - General 03/12/22 05/13/22 Unknown, Notinfile 03/12/22 [place] [address] [address] 03/12/22 documented as of this encounter
--- OUTSIDE RECORDS SUMMARY | 2024-10-11 01:59 | XMS_ITS | Encounter Summary ---
Author Organization [facility] Address [address] [place] [address] Phone Care Team Providers Care Marketing Automation Analyst Name Role Phone No, Physician Primary Care Provider [phone] Unknown, Notinfile Unavailable Unavailable Santino Funk MD Unavailable [phone] Reason for Visit * Reason Comments Chronic Venous Insufficiency * Consultation (Routine) - Closed Specialty Diagnoses / Procedures Referred By Dillan mccallum Referred To Contact Vascular Surgery Diagnoses Edema of both lower extremities due to peripheral [place] [address] [place] [address] Phone: tel: [place] [address] [address] [facility] [address], [place] [address] Phone: tel: fax: Referral ID Status Reason Start Date Expiration Date V isits Requested Visits Authorized [id number] Closed Specialty Services Required 05/19/2022 06/18/2023 1 1 Encounter Details Date Type Department Care Team (Latest Contact Info) Description 06/29/2022 8:30 AM CDT Office Visit [facility] Surgery [address] [facility] [address], [place] [id number] [place] [address] [place] [address] Varicose veins of both legs with edema (Primary Dx); Edema of both lower extremities due to [...] slept in a detention (including now)? No 11/25/2021 Sex and Gender Information Value Date Recorded Sex Assigned at Not on file Legal Sex Male 3:25 PM SALESFORCE TRAINER Gender Identity Not on file Sexual Orientation Not on file documented as of this encounter Last Filed Vital Signs Vital Sign Reading Time Taken Comments Blood Pressure 145/72 06/29/2022 8:17 AM CDT Pulse 50 06/29/2022 8:17 AM CDT Temperature 36.6 ??C (97.9 ??F) 06/29/2022 8:17 AM CD T Respiratory Rate 14 06/29/2022 8:17 AM CDT Oxygen Saturation - - Inhaled Oxygen Concentration - - Weight 98.5 kg (217 lb 3.2 oz) 06/29/2022 8:17 A M CDT Height 180.3 cm (5' 10.98 ) 06/29/2022 8:17 AM C DT Body Mass Index 30.31 06/29/2022 8:17 AM CDT documented in this encounter Progress Notes * Myron Eden MD - 06/29/2022 8:30 AM CDT Patient: Abrahan Gtz Date of : 1945 Date of Service: 06/29/2022 New Patient Consultation Consultation at the request of Jossie Montalvo PA for an opinion regarding venous insufficiency Ihave personally taken a history, examined the patient and determined the assessment and plan as outlined below. CHIEF COMPLAINT: Chief Complaint Patient presents with Chronic Venous Insufficiency HISTORY OF PRESENT ILLNESS: Patient is a 76 y.o. male referred by LORI Montalvo for venous Insufficiency bilateral lower extremity swelling, right worse than left. He is wearing compression stockings which does help some, however he finds the stockings actually bother his feet somewhat. and has a history of Alzheimer, asthma, cataract, GERD, hypothyrodism, osteoarthritis, and visual disturbance. His leg swelling started after knee surgery last year. He still needs his left knee done. He has been wearing zldq-ikg-sllwynq compression stockings since then with some relief. No previous history of DVT or phlebitis. No history of bleeding varicose veins or ulcers. Past Medical History: Diagnosis Date Acute gastric ulcer without hemorrhage or perforation Ulcer, gastric, acute - (Added by TW Conv) Alzheimer's dementia ([facility]) Asthma Back pain Cataract Closed fracture of left tibial plateau with delayed healing Closed fracture of right tibial plateau with delayed healing Closed nondisplaced osteochondral fracture of left patella with delayed healing Closed osteochondral fracture of patella, right, with delayed healing, subsequent encounter Clotting disorder ([facility]) ([facility]) Complex tear of medial meniscus of left knee as current injury Complex tear of medial meniscus of right knee as current injury Cramps of lower extremity Diverticulitis of colon Easy bruisability Fatigue Frequent urination Gastroesophageal reflux disease GERD Hypothyroidism Incontinence of urine Muscle weakness Osteoarthritis Osteoarthritis Peptic ulcer Peptic ulcer disease Seizures ([facility]) ([facility]) 1997 last seizure in 1997 SOB (shortness of breath) on exertion Subchondral insufficiency fracture of condyle of left femur ([facility]) ([facility]) Vertigo Vision changes Visual disturbance [...] 1965 Quit date: 1966 Years since quittin.7 Smokeless tobacco: Never Substance and Sexual Activity Drug use: No Sexual activity: Defer Alcohol Use: Not At Risk Frequency of Alcohol Consumption: Monthly or less Average Number of Drinks: 3 or 4 Frequency of Binge Drinking: Never Allergies as of 06/29/2022 (No Known Allergies) Current Outpatient Medications: cholecalciferol (VITAMIN D-3) 2000 unit capsule, Take 1 capsule (2,000 Units total) by mouth daily (Patient taking differently: Take 2,000 Units by mouth nightly), Disp: 30 capsule, Rfl: [address] (VOLTAREN) 75 mg EC tablet, Take 1 tablet (75 mg total) by mouth 2 (two) times a day Take with food. Do not take with other anti-inflammatory medication, Disp: 60 tablet, Rfl: 0 donepeziL (ARICEPT) [...] at bedtime, Disp: 60 tablet, Rfl: 5 traZODone (DESYREL) 50 mg tablet, Take by mouth nightly 1/2 to 1 tablet, Disp: , Rfl: turmeric root extract 500 mg capsule, Take 1,000 mg by mouth nightly, Disp: , Rfl: UNABLE TO FIND, Take 1 each by mouth nightly Med Name: muscle cramp pain reliever Patient takes 3 different OTC homeopathic muscle cramp medications, Disp: , Rfl: senna-docusate (PERICOLACE) 8.6-50 mg, Take 2 tablets by mouth 2 (two) times a day (Patient not taking: Reported on 06/29/2022), Disp: 60 tablet, Rfl: 2 REVIEW OF SYSTEMS: The patient???s vascular health history form was reviewed and signed by me dated 06/29/2022 The form was scanned into Media. PHYSICAL EXAMINATION: VITAL SIGNS: Vitals BP 145/72 (BP Location: Left arm, Patient Position: Sitting) Pulse 50 Temp 36.6 ??C (97.9 ??F) (Temporal) Resp 14 Ht 180.3 cm (5' 10.98 ) Wt 98.5 kg (217 lb 3.2 oz) BMI 30.31 kg/m?? HENT: Normocephalic and atraumatic. Extraocular movements are intact. Moist mucus membranes. EYES: Pupils are equal and reactive to light bilaterally. NECK: Supple with no lymphadenopathy CHEST: Symmetric chest expansion with no accessory muscle usage HEART: Regular rate and rhythm. ABDOMEN: Soft, nontender, nondistended. VASCULAR: Palpable radial pulse, palpable DP pulses. 1+ edema bilateral lower extremities. Superficial spider veins right worse than left but no large varicosities MUSCULOSKELETAL: Warm, well perfused NEURO: Grossly intact motor and sensory exam. SKIN: No visible rashes. No wounds noted. VASCULAR LABS: I personally reviewed the report and images of: US venous reflux bilateral Patient Active Problem List Diagnosis Primary osteoarthritis of both knees Subchondral insufficiency fracture of condyle of left femur (CMS/HCC) ([facility]) Closed fracture of left tibial plateau with [...] Skin lesion of breast Edema Intermittent claudication (CMS/HCC) ([facility]) Iron deficiency anemia Peripheral vascular disease (CMS/HCC) ([facility]) Pain due to total right knee replacement (CMS/HCC) ([facility]) Hamstring tendinitis of right thigh Quadriceps weakness ASSESSMENT/PLAN: Abrahan Gtz is a 76 y.o. male patient with bilateral lower extremity swelling right worse than left with varicose veins - no evidence of DVT or superficial/deep venous insufficiency noted bilaterally on ultrasound duplex - varicose veins noted on exam are very small and do not require any surgical treatment - he would be best served long-term with compression therapy and leg elevation. Prescribed thigh-high 20-30 millimeter mercury compression stockings - consider ruling out other systemic causes of bilateral lower extremity swelling - follow-up as needed with vascular surgery Myron Eden MD documented in this encounter Plan of Treatment Upcoming Encounters Date Type Department Care Team (Latest Contact Info) Description 10/23/2024 10:00 AM SALESFORCE TRAINER Hospital Encounter [facility] Operating Room [address] [place] [address] [place] [address] [address] 10/23/2024 10:00 AM SALESFORCE TRAINER - 10/23/2024 1:00 PM SALESFORCE TRAINER Surgery [facility] Operating Room [address] [place] [address] [place] [address] [address] ARTHROPLASTY TOTAL KNEE LEFT Scheduled Procedures Name Priority Associated Diagnoses Date/Ti me ARTHROPLASTY TOTAL KNEE left knee osteoarthritis 10/23/2024 10:00 AM SALESFORCE TRAINER ESOPHAGOGASTRODUODENOSCOPY Dysphagia, unspecified type documented as of this encounter Visit Diagnoses Diagnosis Varicose veins of both legs with edema- Primary Edema of both lower extremities due to peripheral venous insufficiency documented in this encounter Historical Medications * This list may reflect changes made after this encounter. sildenafiL, pulm.hypertension , (REVATIO) 20 mg tablet Take 1 tablet (20 mg total) by mouth daily 04/17/2022 01/07/2024 added in this encounter Orders Outpatient Referral Count Last Ordered Date Fir st Ordered Date AMB REFERRAL TO VASCULAR SURGERY 1 06/29/20 documented in this encounter Care Teams Marketing Automation Analyst Relationship Specialty Start Date End Date No, Physician PCP - General 8/4/22 12/20/22 Unknown, Notinfile 03/12/22 [place] [address] [place] [address] 03/12/22 documented as of this encounter
--- OUTSIDE RECORDS SUMMARY | 2024-10-11 01:59 | XMS_ITS | Encounter Summary ---
Author Organization [facility] Address [address] [place] [address] Phone Care Team Providers Care Hand Crocheter Name Role Phone No, Physician Primary Care Provider [phone] Unknown, Notinfile Unavailable Unavailable Santino Funk MD Unavailable [phone] Encounter Details Date Type Department Care Team (Late st Contact Info) Description 05/21/2022 Telephone [facility] Surgery [address] [facility] [address], [place] [address] [place] [address] [facility] [address] [place] [address] Social History Tobacco Use Types [...] relatives? Three times a week 11/25/2021 Attends Confucianism Services Not on file 11/25 Active Member [...] in a nursing home (including now)? No 11/25/2021 Sex and Gender Information Value Date Recorded Sex Assigned at Not on file Legal Sex Male 3:25 PM ARCHAEOLOGY PROFESSOR Gender Identity Not on file Sexual Orientation Not on file documented as of this encounter Miscellaneous Notes * Telephone Encounter - Kate Grady, Jing - 05/28/2022 3:02 PM CDT called pt and lvm for pt to give office a call to schedule appointment * Telephone Encounter - Kate Grady RMA - 05/26/2022 11:53 AM CDT Called pt and lvm for pt to give office a call to make new pt appointment * Telephone Encounter - Kate Grady RMA - 05/21/2022 2:17 PM CDT Called pt and lvm for pt to give office a call back for new pt appointment documented in this encounter Plan of Treatment Upcoming Encounters Date Type Department Care Team (Latest Contact Info) Description 10/23/2024 10:00 AM ARCHAEOLOGY PROFESSOR Hospital Encounter [facility] Operating Room [address] [place] [address] [place] [address] [address] 10/23/2024 10:00 AM ARCHAEOLOGY PROFESSOR - 10/23/2024 1:00 PM ARCHAEOLOGY PROFESSOR Surgery [facility] Operating Room [address] [place] [address] [place] [address] [address] ARTHROPLASTY TOTAL KNEE LEFT Scheduled Procedures Name Priority Associated Diagnoses Date/Ti me ARTHROPLASTY TOTAL KNEE left knee osteoarthritis 10/23/2024 10:00 AM ARCHAEOLOGY PROFESSOR ESOPHAGOGASTRODUODENOSCOPY Dysphagia, unspecified type documented as of this encounter Visit Diagnoses Not on filedocumented in this encounter Care Teams Hand Crocheter Relationship Specialty Start Date End Date No, Physician PCP - General 05/14/22 09/29/22 Unknown, Notinfile 03/12/[address] [place] [address] [facility] [address] [id number] 03/12/22 documented as of this encounter
--- OUTSIDE RECORDS SUMMARY | 2024-10-11 02:00 | XMS_ITS | Encounter Summary ---
Author Organization [facility] Address [address] [facility] [address] [place] [address] Care Team Providers Care Manager Meat Name Role Phone Santino Fnuk MD Primary Care Provider + Encounter Details Date Type Department Care Team (Late st Contact Info) Description 08/22/2021 Orders Only [facility] [address] [address] [place] [address] [facility] [address] [place] [address] Social History Tobacco Use Types Packs/Day Years Used Date Smoking Tobacco: Former Cigarettes 1 966 - 1966 Smokeless Tobacco: Never Alcohol Use Standard Drinks/Week Comments Yes 1 (1 standard drink = 0.6 oz pur e alcohol) PHQ-2 Answer Date Recorded PHQ-2 Score 0 12/12/2018 Sex and Gender Information Value Date Recorded Sex Assigned at Not on file Legal Sex Male 3:25 PM CAPTAIN ROOM SERVICE Gender Identity Not on file Sexual Orientation Not on file documented as of this encounter Plan of Treatment Upcoming Encounters Date Type Department Care Team (Latest Contact Info) Description 10/23/2024 10:00 AM CAPTAIN ROOM SERVICE Hospital Encounter [facility] Operating Room [address] [place] [address] [place] [address] [facility] [address] [place] [address] 10/23/2024 10:00 AM CAPTAIN ROOM SERVICE - 10/23/2024 1:00 PM CAPTAIN ROOM SERVICE Surgery [facility] Operating Room [address] [place] [address] [place] [address] [facility] [address] [place] [address] ARTHROPLASTY TOTAL KNEE LEFT Scheduled Procedures Name Priority Associated Diagnoses Date/Ti me ARTHROPLASTY TOTAL KNEE left knee osteoarthritis 10/23/2024 10:00 AM CAPTAIN ROOM SERVICE ESOPHAGOGASTRODUODENOSCOPY Dysphagia, unspecified type documented as of this encounter Visit Diagnoses Not on filedocumented in this encounter Care Teams Manager Meat Relationship Specialty [place] [address] [facility] [address] [place] [address] PCP - General 11/12/16 03/11/22 documented as of this encounter
--- OUTSIDE RECORDS SUMMARY | 2024-10-11 02:00 | XMS_ITS | Encounter Summary ---
Author Organization [facility] Address [address] [place] [address] Care Team Providers Care Ground Nuclear Weapons Assembly Officer Name Role Phone Santino Funk MD Primary Care Provider + Encounter Details Date Type Department Care Team (Late st Contact Info) Description 08/22/2021 Telephone [facility] [address] [address] Maura Serrano Social History Tobacco Use Types Packs/Day Years Used Date Smoking Tobacco: Former Cigarettes 1 966 - 1966 Smokeless Tobacco: Never Alcohol Use Standard Drinks/Week Comments Yes 1 (1 standard drink = 0.6 oz pur e alcohol) PHQ-2 Answer Date Recorded PHQ-2 Score 0 12/12/2018 Sex and Gender Information Value Date Recorded Sex Assigned at Not on file Legal Sex Male 3:25 PM ROCK CUTTER Gender Identity Not on file Sexual Orientation Not on file documented as of this encounter Miscellaneous Notes * Telephone Encounter - Giulia Wallis PA - 08/22/2021 10:26 AM ROCK CUTTER Order placed. Thank you CUTTER documented in this encounter Plan of Treatment Upcoming Encounters Date Type Department Care Team (Latest Contact Info) Description 10/23/2024 10:00 AM ROCK CUTTER Hospital Encounter [facility] Operating Room [address] [place] [address] [place] [address] [facility] [address] [place] [address] 10/23/2024 10:00 AM ROCK CUTTER - 10/23/2024 1:00 PM ROCK CUTTER Surgery [facility] Operating Room [address] [place] [address] [place] [address] [address] ARTHROPLASTY TOTAL KNEE LEFT Scheduled Procedures Name Priority Associated Diagnoses Date/Ti me ARTHROPLASTY TOTAL KNEE left knee osteoarthritis 10/23/2024 10:00 AM ROCK CUTTER ESOPHAGOGASTRODUODENOSCOPY Dysphagia, unspecified type documented as of this encounter Visit Diagnoses Not on filedocumented in this encounter Care Teams Ground Nuclear Weapons Assembly Officer Relationship Specialty [place] [address] [facility] [place] [address] PCP - General 11/12/16 03/11/22 documented as of this encounter
--- OUTSIDE RECORDS SUMMARY | 2024-10-11 02:00 | XMS_ITS | Encounter Summary ---
Author Organization [facility] Address [address] [facility] [address] [place] [address] Care Team Providers Care Viscosity Worker Name Role Phone Santino Funk MD Primary Care Provider + Reason for Visit * Reason Onset Date Comments Med Refill 10/07/2020 Donepezil Encounter Details Date Type Department Care Team (Late st Contact Info) Description 10/07/2020 Telephone [facility] [address] [facility] [address] [place] [address] [place] [address] [facility] [address], [place] [address] Med Refill (Donepezil) Social History Tobacco Use Types Packs/Day Years Used Date Smoking Tobacco: Former Cigarettes 1 966 - 1966 Smokeless Tobacco: Never Alcohol Use Standard Drinks/Week Comments Yes 1 (1 standard drink = 0.6 oz pur e alcohol) PHQ-2 Answer Date Recorded PHQ-2 Score 0 12/12/2018 Sex and Gender Information Value Date Recorded Sex Assigned at Not on file Legal Sex Male 3:25 PM CHARTERED ACCOUNTANT Gender Identity Not on file Sexual Orientation Not on file documented as of this encounter Ordered Prescriptions Prescription Sig Dispense Quantity Refills Last Filled Start Date End Date donepeziL (ARICEPT) 10 mg tabletIndications: 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) Take 1 tablet (10 mg total) by mouth nightly 30 tablet 5 10/07/2020 1 documented in this encounter Miscellaneous Notes * Addendum Note - Lawrence Lozada MA - 10/07/2020 2:53 PM CSTAddended by: LAWRENCE LOZADA on: 10/07/2020 02:53 PM Modules accepted: Orders TERED ACCOUNTANT * Telephone Encounter - Lawrence Lozada MA - 10/07/2020 2:53 PM CST rx sent TERED ACCOUNTANT * Telephone Encounter - Clay Fajardo - 10/07/2020 11:19 AM CST LV 11-16-20 CMY NV 5-18-21 CMY Medication Name: donepeziL (ARICEPT) 10 mg Dosage: 10 mg Rx Type day: Pharmacy: [facility] TERED ACCOUNTANT documented in this encounter Plan of Treatment Upcoming Encounters Date Type Department Care Team (Latest Contact Info) Description 10/23/2024 10:00 AM CHARTERED ACCOUNTANT Hospital Encounter [facility] Operating Room [address] [place] [address] [place] [address] [address] 10/23/2024 10:00 AM CHARTERED ACCOUNTANT - 10/23/2024 1:00 PM CHARTERED ACCOUNTANT Surgery [facility] Operating Room [address] [place] [address] [place] [address] [address] [address] ARTHROPLASTY TOTAL KNEE LEFT Scheduled Procedures Name Priority Associated Diagnoses Date/Ti me ARTHROPLASTY TOTAL KNEE left knee osteoarthritis 10/23/2024 10:00 AM CHARTERED ACCOUNTANT ESOPHAGOGASTRODUODENOSCOPY Dysphagia, unspecified type documented as of this encounter Visit Diagnoses Diagnosis 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) documented in this encounter Discontinued Medications Medication Sig Discontinue Reason Start Date End Da te donepeziL (ARICEPT) 10 mg tabletIndications: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) Take 1 tablet (10 mg total) by mouth nightly Reorder 08/26/2020 10/07/2020 documented as of this encounter Care Teams Viscosity Worker Relationship Specialty [place] [address] [address] PCP - General 11/12/16 03/11/22 documented as of this encounter
--- OUTSIDE RECORDS SUMMARY | 2024-10-11 02:00 | XMS_ITS | Encounter Summary ---
Author Organization [facility] Address [address] [place] [address] Care Team Providers Care Furnace Erector Name Role Phone Santino Funk MD Primary Care Provider + Encounter Details Date Type Department Care Team (Late st Contact Info) Description 11/24/2021 8:24 AM PROGRAM DIRECTOR/MUSIC DIRECTOR Anesthesia Event [facility] Operating Room [address] [place], [place] [id number] Isaac Jara MD [phone] [address] [place] [phone] [address] Anesthesia Record Procedure Summary Procedure Name Responsible Anesthesiologist Anesthesia Start Time Anesthesia Stop Time ARTHROPLASTY TOTAL RIGHT KNEE, LEFT KNEE INJECTION (Right: Knee) Isaac Jara MD 11/24/21 0824 11/24/21 1027 Events Date Time Event Comment 11/24/2021 0802 0823 In Room 0824 An Start 0824 An Start Data 0831 Spinal Placed 0835 Anesthesia Ready 0854 Proc Start 1014 Proc Fin 1017 an stop data 1020 Out of Room 1027 Handoff to RN I completed my handoff [...] Patient disposition at the time of handoff: PACU 1027 An Stop Meds Name Total ceFAZolin (ANCEF) 1 gram/10 mL in steril e water (premix) 2,000 mg 2,000 mg propofol 711.87 mg midazolam 4 mg ondansetron 4 mg dexamethasone 4 mg/ml 4 mg phenylephrine syringe 100 mcg/ml 600 mcg tranexamic acid 1,365 mg diphenhydrAMINE 12.5 mg tranexamic acid (CYKLOKAPRON ) 1,000 mg in sodium chloride 0.9% 100 mL (10 mg/mL) infusion 152.94 mg bupivacaine 0.5 % (PF) 3 mL Lactated Ringer's (LR) infusion 900 mL * Agents Name O2 * Blood No blood administrations on file. Lines, Drains, and Airways Type Details Placement Removal RETIRED Surgical Site 12/28/19; 1249; No ; Neck; 12/07/23; 1832; Not present on admission 12/28/19 1249 by Prem Woodruff RN 12/07/23 1832 by Ayleen Kathleen RN Closed/Suction/Open Drain 12/28/19; 1319; No; 1; Left; Neck; Bulb; 10 Fr.; 1 12/28/19 1319 by Prem Woodruff RN 12/07/23 183 by Dioni Lozano RN Peripheral IV Placement Date: 11/24/21; Placement Time: 0708; Change Due: 11/28/21; Catheter Size: 20 G; Orientation: Left, Posterior; Location: Hand; Site Prep: Chlorhexidine; Inserted by: lb; Insertion Attempts: 1; Patient Tolerance: Tolerated well; Removal Date: 11/26/21; Removal Time: 1537; Removal Reason: Discharge 11/24/21 0708 by Jazmine Arzola RN 11/26/21 1537 by Meagan Alonso, MARAH Closed/Suction/Open Drain 11/24/21; 0902; No; 1; Right; Knee; Accordion 11/24/21 09 by Sowmya Chapa RN 12/07/23 183 by Dioni Lozano, MARAH RETIRED Surgical Site 11/24/21; 0902; Le ft; Knee; 12/18/23; 0658 11/24/21901 by Sowmya Chapa RN 12/18/23657 by Lizette Mike RN RETIRED Surgical Site 11/24/21; 09; Right; Knee; 12/18/23; 0658 11/24/21901 by Sowmya Chapa RN 12/18/23657 by Lizette Mike RN RETIRED Negative Pressure Wound Therapy 11/24/21; 902; [place]; Surgical incision; Anterior, Right; Knee; 12/07/23; 183 (unknown. not present upon admission) 11/24/21902 by Sowmya Chapa RN 12/07/231829 by Dioni Lozano RN documented in this encounter Social History Tobacco [...] relatives? Three times a week 11/25/2021 Attends [employer] Not on file 11/25 Active Member [...] on file Legal Sex Male 3:25 PM PROGRAM DIRECTOR/MUSIC DIRECTOR Gender Identity Not on file Sexual Orientation Not on file documented as of this encounter OR Notes * Anesthesia Postprocedure Evaluation - Isaac Jara MD - 11/24/2021 2:20 PM CST Patient: Abrahan Gtz Jr. Procedure Summary Date: 11/24/21 Room / Location: OPERATING ROOM 9 / OPERATING ROOM Anesthesia Start: 823 Anesthesia Stop: 1026 Procedure: ARTHROPLASTY TOTAL RIGHT KNEE, LEFT KNEE INJECTION (Right Knee) Diagnosis: Primary osteoarthritis of both knees (Primary osteoarthritis of both knees [M17.0]) Providers: George Sepulveda MD Responsible Provider: Isaac Jara MD Anesthesia Type: spinal, PNB - single shot ASA Status: 2 Anesthesia Type: spinal, PNB - single shot Last vitals BP 145/53 (BP Location: Right arm) Pulse (!) 44 Temp 36.6 ??C (97.9 ??F) (Oral) Resp 16 SpO2 100% Anesthesia Post Evaluation Patient location during evaluation: PACU Patient participation: complete - patient participated Level of consciousness: fully awake Pain score: 0 Pain management: adequate Airway patency: patent and adequate Evidence of recall: no Cardiovascular status: acceptable Respiratory status: acceptable and room air Hydration status: acceptable Pt is: normothermic Nausea/Vomiting status: none No complications documented. RAM DIRECTOR/MUSIC DIRECTOR * Anesthesia Procedure Notes - Morenita Combs CRNA - 11/24/2021 8:47 AM CSTAssociated Order(s): Spinal Block Spinal Block Patient location: OR Start time: 11/24/2021 8:29 AM End time: 11/24/2021 8:31 AM Reason for block: primary anesthetic Staff: Placed by: BUNK HOUSE WORKER:Morenita Combs CRNA Procedure prep: Preprocedure checklist: patient identified, procedure contraindications assessed, site marked, procedure consent, surgical consent, IV checked, risks, benefits and alternatives discussed, monitors and equipment checked and timeout performed Patient position: sitting Procedure performed while patient: sedate with meaningful contact Monitoring: ECG, oximetry, blood pressure and capnography Supplemental O2: facemask Prep solution: povidone-iodine PPE: provider hat/mask, sterile gloves and sterile drape Spinal: Approach: midline Introducer used: yes Location: L3-4 Spinal injection: CSF demonstrated and no aspiration of heme Number of attempts: 1 Spinal Needle: Needle type: pencil-tip Needle gauge: 25 G Needle length: 9 cm Assessment: Sensory deficit - left: T6 Sensory deficit - right: T6 Events: patient tolerated procedure well with no complications RAM DIRECTOR/MUSIC DIRECTOR * Anesthesia Procedure Notes - Luciano Lowery MD - 11/24/2021 8:02 AM PROGRAM DIRECTOR/MUSIC DIRECTOR Associated Order(s): Peripheral Block Peripheral Block Patient location during procedure: PACU Start time: 11/24/2021 8:02 AM Reason for block: post-op pain management per surgeon request Ultrasound image in chart or stored: yes Block type: single shot Laterality: right Block type: saphenous nerve block - subsartorial approach Procedure prep: Preprocedure checklist: patient identified, procedure contraindications assessed, site marked, procedure consent, surgical consent, IV checked, risks, benefits and alternatives discussed, monitors and equipment checked and timeout performed Patient position: supine Procedure performed while patient: sedate with meaningful contact Monitoring: ECG, oximetry and blood pressure Supplemental O2: nasal cannula Prep solution: chlorhexidine/alcohol PPE: sterile gloves, provider hat/mask and sterile drape Peripheral nerve block: Technique: ultrasound guided Needle type: insulated and echogenic Needle gauge: 21 G Needle length: 100 mm Injection assessment: injection made incrementally with constant monitoring, local visualized surrounding nerve on ultrasound, negative aspiration for heme, no paresthesias noted, normal resistance to injection and see flowsheet for medication details Assessment: Block success: complete Events: patient tolerated procedure well with no complications Additional comments: ..30 ml of 0.25% marcaine with Epi RAM DIRECTOR/MUSIC DIRECTOR * Anesthesia Preprocedure Evaluation - Luciano Lowery MD - 11/17/2021 3:34 PM CST Images from the original note were not included. Anesthesia Evaluation Abrahan Gtz Jr. is a 76 y.o. male Procedure(s): ARTHROPLASTY TOTAL RIGHT KNEE Pre-Op Diagnosis Codes: * Primary osteoarthritis of both knees [M17.0] HISTORY Past Medical History Information obtained from: patient and chart. Neurological + Seizures (last 1997. no meds. ) + Psychiatric history - depression + Dementia/mild cognitive impairment - dementia. Etiology: Alzheimer type. Comments: RLS Essential Tremor Cardiovascular Cardiac system: negative Respiratory + Asthma Dyspnea frequency: daily. Rescue inhaler use: never. Hospitalizations/ER in the last year:0. Pertinent negatives: non-smoker Hepatic / Heme Hepatic/Heme system: negative Gastrointestinal + GERD - on daily therapy. Asymptomatic. Renal / Renal/ system: negative Musculoskeletal/Pain + Osteoarthritis Endocrine / Other + Thyroid disease (S/P total thyroidectomy) - hypothyroidism Functional Capacity Functional capacity: 4-6 METs Review of Systems + SOB (Works at [employer], walks frequently. ) + vision loss (Glasses ) Pertinent negatives: chest pain and previous transfusion Patient Active Problem List Diagnosis ??? Primary osteoarthritis of both knees ??? Subchondral insufficiency fracture of condyle of left femur (CMS/HCC) ([facility]LY [facility]) ??? Closed fracture of left tibial plateau with delayed healing ??? Closed fracture of right tibial plateau with delayed healing ??? Closed nondisplaced osteochondral fracture of left patella with delayed healing ??? Closed osteochondral fracture of patella, right, with delayed healing, subsequent encounter ??? Complex tear of medial meniscus of right knee as current injury ??? Complex tear of medial meniscus of left knee as current injury ??? Goiter ??? Breast pain, right ??? Cataract of right eye ??? Diplopia ??? Esotropia ??? Hypertropia of right eye ??? Skin lesion of breast Past Medical History: Diagnosis Date ??? Acute gastric ulcer without hemorrhage or perforation Ulcer, gastric, acute - (Added by TW Conv) ??? Alzheimer's dementia ([facility]) ??? Asthma ??? Cataract ??? Closed fracture of left tibial plateau with delayed healing ??? Closed fracture of right tibial plateau with delayed healing ??? Closed nondisplaced osteochondral fracture of left patella with delayed healing ??? Closed osteochondral fracture of patella, right, with delayed healing, subsequent encounter ??? Complex tear of medial meniscus of left knee as current injury ??? Complex tear of medial meniscus of right knee as current injury ??? Diverticulitis of colon ??? Gastroesophageal reflux disease GERD ??? Hypothyroidism ??? Incontinence of urine ??? Osteoarthritis Osteoarthritis ??? Peptic ulcer Peptic ulcer disease ??? Seizures (CMS/HCC) ([facility]) 1998 last seizure in 1998 ??? SOB (shortness of breath) on exertion ??? Subchondral insufficiency fracture of condyle of left femur (CMS/HCC) ([facility]) ??? Vertigo ??? Visual disturbance hx of double vision, corrective lenses Past Surgical History: Procedure Laterality Date ??? CATARACT EXTRACTION, BILATERAL Bilateral 2018 ??? HERNIA REPAIR 1980 Hiatal Hernia repair ??? KNEE ARTHROSCOPY Bilateral ??? THYROIDECTOMY 12/27/2019 No Known Allergies Med List Status: Nurse Complete Set By: Jenni Morris RN at 11/18/2021 8:20 AM Taking? Last Dose Start Date End Date Provider acetaminophen 500 mg capsule 11/18/2021 12/30/19 -- Last, Ruth Hogan MD Take 2 capsules (1,000 mg total) by mouth every 6 (six) hours Patient taking differently: Take 650 mg by mouth every 6 (six) hours cholecalciferol (VITAMIN D-3) 2000 unit capsule 11/18/2021 12/31/19 -- Alexx, Ruth Hogan MD Take 1 capsule (2,000 Units total) by mouth daily Patient taking differently: Take 2,000 Units by mouth nightly donepeziL (ARICEPT) 10 mg tablet 11/18/2021 09/11/21 03/10/22 Nayan Mahajan II, MD Take 1 tablet (10 mg total) by mouth nightly HYDROcodone-acetaminophen (NORCO) 7.5-325 mg per tablet 11/18/2021 -- -- Garett Shah MD levothyroxine (SYNTHROID) 150 mcg tablet 11/18/2021 09/19/21 -- Garett Shah MD magnesium oxide (MAG-OX) 250 mg (150.8 mg elemental) tablet -- -- ProviderGarett MD omeprazole (PriLOSEC) 20 mg capsule 11/18/2021 10/21/16 -- Nayan Mahajan MD take 1 capsule by oral route every day before a meal Patient taking differently: Take 20 mg by mouth 2 (two) times a day oxybutynin XL (DITROPAN-XL) 10 mg 24 hr tablet 11/18/2021 11/07/21 -- Garett Shah MD polyethylene glycol (MIRALAX) 17 gram packet 11/18/2021 -- -- Garett Shah MD senna-docusate (PERICOLACE) 8.6-50 mg 11/18/2021 -- -- Garett Shah MD tamsulosin (FLOMAX) 0.4 mg extended release capsule 11/18/2021 01/29/20 -- Garett Shah MD tiZANidine (ZANAFLEX) 2 mg tablet 11/18/2021 09/11/21 -- Nayan Mahajan II, MD Take 2 tablets (4 mg total) by mouth nightly 1 to 2 tablets at bedtime traZODone (DESYREL) 50 mg tablet 08/15/21 -- Garett Shah MD turmeric root extract 500 mg capsule -- -- Garett Shah MD UNABLE TO FIND -- -- Garett Shah MD Current Outpatient Medications: ??? acetaminophen 500 mg capsule ??? cholecalciferol (VITAMIN D-3) 2000 unit capsule ??? donepeziL (ARICEPT) 10 mg tablet ??? HYDROcodone-acetaminophen (NORCO) 7.5-325 mg per tablet ??? levothyroxine (SYNTHROID) 150 mcg tablet ??? omeprazole (PriLOSEC) 20 mg capsule ??? oxybutynin XL (DITROPAN-XL) 10 mg 24 hr tablet ??? polyethylene glycol (MIRALAX) 17 gram packet ??? senna-docusate (PERICOLACE) 8.6-50 mg ??? tamsulosin (FLOMAX) 0.4 mg extended release capsule ??? tiZANidine (ZANAFLEX) 2 mg tablet ??? magnesium oxide (MAG-OX) 250 mg (150.8 mg elemental) tablet ??? traZODone (DESYREL) 50 mg tablet ??? turmeric root extract 500 mg capsule ??? UNABLE TO FIND Social History Tobacco Use Smoking Status Former Smoker ??? Types: Cigarettes ??? Start date: 1965 ??? Quit date: 1966 ??? Years since quittin.1 Smokeless Tobacco Never Used Substance and Sexual Activity Alcohol Use Yes ??? Alcohol/week: 1.0 standard drink ??? Types: 1 Standard drinks or equivalent per week Substance and Sexual Activity Drug Use No Family History Problem Relation Age of Onset ??? Heart failure Other Family history of Congestive heart failure; ??? Heart disease Other Family history of Heart disease; ??? Osteoarthritis Other Family history of Osteoarthritis; ??? Osteoporosis Other Family history of Osteoporosis; ??? Heart attack Mother ??? Heart attack Father ??? Heart attack Sister PAT Physical Exam Airway Exam: Mallampati: II Cervical ROM: FROM TM distance: >4 Cardiovascular Exam: Rate: regular Rhythm: regular Pulmonary Exam: LCTA, bilat EENT Exam: trachea midline Dental Exam: Appears intact Skin Exam: Skin is warm. Current state: Patient's current state is cooperative and interactive. Vitals: 11/18/21 0837 BP: 135/90 Pulse: 58 Resp: 18 Temp: 36 ??C (96.8 ??F) PT: 11/18/2021: 11.3 sec INR: 11/18/2021: 1.0 APTT: No results found for requested labs within last 720 hours. Hgb A1C: 11/18/2021: 5.7 % (H) CBC RBC: 11/18/2021: 4.20 M/cumm (L) RDW: No results found for requested labs within last 720 hours. MCHC: 11/18/2021: 33.3 g/dL MCH: 11/18/2021: 35.0 pg (H) MCV: 11/18/2021: 105.2 fL (H) Hct: 11/18/2021: 44.2 % Hgb: 11/18/2021: 14.7 g/dL WBC: 11/18/2021: 6.1 K/cumm MPV: 11/18/2021: 10.2 fL Platelets: 11/18/2021: 220 K/cumm RDW CV: 11/18/2021: 12.7 % RDW Sd: 11/18/2021: 50.3 fL (H) BMP Glucose: 11/18/2021: 112 mg/dL Calcium: 11/18/2021: 8.6 mg/dL Sodium: 11/18/2021: 140 mmol/L Potassium: 11/18/2021: 4.3 mmol/L CO2: 11/18/2021: 26 mmol/L Chloride: 11/18/2021: 105 mmol/L BUN: 11/18/2021: 21 mg/dL Creatinine: 11/18/2021: 1.12 mg/dL STOP-Bang Total Score: 2 TTE 02/07/2020 Normal left ventricular size. Mild concentric left ventricular hypertrophy. Diastolic dysfunction is present. Ejection fraction is measured at 64 %. Normal atrial septum. Saline contrast study performed without evidence of right to left Shunt. Normal structure of the mitral valve. Trivial regurgitation of the mitral valve. Normal structure of the tricuspid valve. Estimated peak RVSP is 32 mmHg. Mild tricuspid Regurgitation. Electronically Signed By: Carolyne Mendiola DO, BO, ALEXANDRA, SONIDO 2020-02-14 14:33:55 CDT EKG 02/14/2020 Vent Rate: 56 bpm RR Interval: 1069 msec KS Interval: 167 msec QRS Duration: 84 msec QT Interval: 411 msec QTC Interval: 402 msec P-R-T [place]: 68 - -12 - 53 degrees SINUS BRADYCARDIA WITH OCCASIONAL VENTRICULAR PREMATURE COMPLEXES MINIMAL VOLTAGE CRITERIA FOR LVH, CONSIDER NORMAL VARIANT ??[MEETS CRITERIA IN ONE OF: R(aVL), S(V1), R(V5), R(V5/V6)+S(V1)] BORDERLINE ECG Electronically Signed By: Dr. Becky Mcfadden [facility] DOS Physical Exam Medical history, medications, and allergies reviewed. Attestation: This PAT evaluation Airway Exam: Mallampati: II Cervical ROM: FROM TM distance: >4 Cardiovascular Exam: Rate: regular Rhythm: regular Pulmonary Exam: LCTA, bilat Dental Exam: Appears intact Current state: Patient's current state is cooperative. Anesthesia Plan ASA 2 My patient is approved for the Anesthesia Controlled Medication protocol when under care of a BUNK HOUSE WORKER Planned anesthesia: Spinal and PNB - single shot Lower extremity: femoral nerve block (distal mid thigh) Induction: Induction: intravenous. Consent and Attending signature: I and/or my designee have discussed the anesthesia plan, benefits, possible alternatives, parental presence at time of induction (if indicated), and clinically relevant risks that may include dental injury, unintentional awareness, and/or other complications. The patient and/or parent/legal guardian understand, and agree to proceed. All questions answered. RAM DIRECTOR/MUSIC DIRECTOR RAM DIRECTOR/MUSIC DIRECTOR RAM DIRECTOR/MUSIC DIRECTOR RAM DIRECTOR/MUSIC DIRECTOR documented in this encounter Plan of Treatment Upcoming Encounters Date Type Department Care Team (Latest Contact Info) Description 10/23/2024 10:00 AM PROGRAM DIRECTOR/MUSIC DIRECTOR Hospital Encounter [facility] Operating Room [address] [place] [address] [place] [id number] [address] 10/23/2024 10:00 AM PROGRAM DIRECTOR/MUSIC DIRECTOR - 10/23/2024 1:00 PM PROGRAM DIRECTOR/MUSIC DIRECTOR Surgery [facility] Operating Room [address] [place] [address] [place] [address] [facility] [address] [place] [address] ARTHROPLASTY TOTAL KNEE LEFT Scheduled Procedures Name Priority Associated Diagnoses Date/Ti me ARTHROPLASTY TOTAL KNEE left knee osteoarthritis 10/23/2024 10:00 AM PROGRAM DIRECTOR/MUSIC DIRECTOR ESOPHAGOGASTRODUODENOSCOPY Dysphagia, unspecified type documented as of this encounter Procedures Procedure Name Priority Date/Time Associated Diagnosis Comments ANESTHESIA SPINAL BLOCK Routine 11/24/2021 8:29 AM PROGRAM DIRECTOR/MUSIC DIRECTOR ANESTHESIA PERIPHERAL BLOCK Routine 11/24/2021 8:02 AM PROGRAM DIRECTOR/MUSIC DIRECTOR documented in this encounter Results * Spinal Block (11/24/2021 8:29 AM PROGRAM DIRECTOR/MUSIC DIRECTOR) Narrative Morenita Combs CRNA - 11/24/2021 8:29 AM PROGRAM DIRECTOR/MUSIC DIRECTOR Morenita Combs CRNA ? 11/24/2021 ??8:50 AM Spinal Block Patient location: OR Start time: 11/24/2021 8:29 AM End time: 11/24/2021 8:31 AM Reason for block: primary anesthetic Staff: Placed by: BUNK HOUSE WORKER:Morenita Combs CRNA Procedure prep: Preprocedure checklist: patient identified, procedure contraindications assessed, site marked, procedure consent, surgical consent, IV checked, risks, benefits and alternatives discussed, monitors and equipment checked and timeout performed Patient position: sitting Procedure performed while patient: sedate with meaningful contact Monitoring: ECG, oximetry, blood pressure and capnography Supplemental O2: facemask Prep solution: povidone-iodine PPE: provider hat/mask, sterile gloves and sterile drape Spinal: Approach: midline Introducer used: yes Location: L3-4 Spinal injection: CSF demonstrated and no aspiration of heme Number of attempts: 1 Spinal Needle: Needle type: pencil-tip Needle gauge: 25 G Needle length: 9 cm Assessment: Sensory deficit - left: T6 Sensory deficit - right: T6 Events: patient tolerated procedure well with no complications Isaac Jara MD ANESTHESIA ORDERABLES Final Resu lt * Peripheral Block (11/24/2021 8:02 AM PROGRAM DIRECTOR/MUSIC DIRECTOR) Narrative Luciano Lowery MD - 11/24/2021 8:02 AM PROGRAM DIRECTOR/MUSIC DIRECTOR Luciano Lowery MD ? 11/24/2021 ??8:02 AM Peripheral Block Patient location during procedure: PACU Start time: 11/24/2021 8:02 AM Reason for block: post-op pain management per surgeon request Ultrasound image in chart or stored: yes Block type: single shot Laterality: right Block type: saphenous nerve block - subsartorial approach Procedure prep: Preprocedure checklist: patient identified, procedure contraindications assessed, site marked, procedure consent, surgical consent, IV checked, risks, benefits and alternatives discussed, monitors and equipment checked and timeout performed Patient position: supine Procedure performed while patient: sedate with meaningful contact Monitoring: ECG, oximetry and blood pressure Supplemental O2: nasal cannula Prep solution: chlorhexidine/alcohol PPE: sterile gloves, provider hat/mask and sterile drape Peripheral nerve block: Technique: ultrasound guided Needle type: insulated and echogenic Needle gauge: 21 G Needle length: 100 mm Injection assessment: injection made incrementally with constant monitoring, local visualized surrounding nerve on ultrasound, negative aspiration for heme, no paresthesias noted, normal resistance to injection and see flowsheet for medication details Assessment: Block success: complete Events: patient tolerated procedure well with no complications Additional comments: ..30 ml of 0.25% marcaine with Epi Luciano Lowery MD ANESTHESIA ORDERABLES Final Re sult documented in this encounter Visit Diagnoses Not on filedocumented in this encounter Administered Medications Inactive Administered Medications - up to 3 most recent administrations Medication Order MAR Action Action Date Dose Rate Site bupivacaine (MARCAINE) 0.5 % (5 mg/mL) preservative free injection epidural, As needed, Starting on Wed11/24/21 at 0831, Anesthesia Intra-op Given 11/24/2021 8:31 AM PROGRAM DIRECTOR/MUSIC DIRECTOR 3 mL ceFAZolin (ANCEF) 1 gram/10 mL in sterile water (premix) 2,000 mg 2,000 mg, intravenous, at 400 mL/hr, Administer over 3 Minutes, Once, On Wed11/24/21 at 0800, For 1 dose, Indications: Prophylaxis, SurgicalIndications:Prophylax is, Surgical Given 11/24/2021 8:35 AM PROGRAM DIRECTOR/MUSIC DIRECTOR 2,000 mg dexAMETHasone (DECADRON) 4 mg/mL injection intravenous, Administer over 2 Minutes, As needed, Starting on Wed11/24/21 at 0832, Anesthesia Intra-op Given 11/24/2021 8:32 AM PROGRAM DIRECTOR/MUSIC DIRECTOR 4 mg diphenhydrAMINE (BENADRYL) injection intravenous, Administer over 2 Minutes, As needed, Starting on Wed11/24/21 at 0859, Anesthesia Intra-op Given 11/24/2021 8:59 AM PROGRAM DIRECTOR/MUSIC DIRECTOR 12.5 mg Lactated Ringer's (LR) infusion 30 mL/hr, intravenous, Continuous, Starting on Wed11/24/21 at 0745 New Bag 11/24/2021 11:01 AM PROGRAM DIRECTOR/MUSIC DIRECTOR 30 mL/hr 30 mL/hr Restarted 11/24/2021 10:09 AM PROGRAM DIRECTOR/MUSIC DIRECTOR New Bag 11/24/2021 8:24 AM PROGRAM DIRECTOR/MUSIC DIRECTOR 50 mL/hr midazolam (VERSED) 1 mg/mL preservative free injection intravenous, Administer over 2 Minutes, As needed, Starting on Wed11/24/21 at 0832, Anesthesia Intra-op Given 11/24/2021 9:24 AM PROGRAM DIRECTOR/MUSIC DIRECTOR 2 mg Given 11/24/2021 8:32 AM PROGRAM DIRECTOR/MUSIC DIRECTOR 2 mg ondansetron (ZOFRAN) injection intravenous, Administer over 2 Minutes, As needed, Starting on Wed11/24/21 at 0832, Anesthesia Intra-op Given 11/24/2021 8:32 AM PROGRAM DIRECTOR/MUSIC DIRECTOR 4 mg phenylephrine (MAGY-SYNEPHRINE) 1 mg/10 mL (100 mcg/mL) in sodium chloride 0.9% (premix) intravenous, As needed, Starting on Wed11/24/21 at 0841, Anesthesia Intra-op Given 11/24/2021 10:04 AM PROGRAM DIRECTOR/MUSIC DIRECTOR 100 mc g Given 11/24/2021 9:56 AM PROGRAM DIRECTOR/MUSIC DIRECTOR 100 mcg Given 11/24/2021 9:42 AM PROGRAM DIRECTOR/MUSIC DIRECTOR 100 mcg propofoL (DIPRIVAN) 10 mg/mL IV intravenous, Continuous PRN, Starting on Wed11/24/21 at 0835, Anesthesia Intra-op Rate/Dose Change 11/24/2021 9:51 AM PROGRAM DIRECTOR/MUSIC DIRECTOR 50 mcg/kg/min 28.38 mL/hr Rate/Dose Change 11/24/2021 8:38 AM PROGRAM DIRECTOR/MUSIC DIRECTOR 75 mcg/kg/min 42.5 7 mL/hr Rate/Dose Change 11/24/2021 8:36 AM PROGRAM DIRECTOR/MUSIC DIRECTOR 100 mcg/kg/min 56. 76 mL/hr tranexamic acid (CYKLOKAPRON) 1,000 mg in sodium chloride 0.9% 100 mL (10 mg/mL) infusion intravenous, Continuous PRN, Starting on Wed11/24/21 at 0846, Anesthesia Intra-op New Bag 11/24/2021 8:46 AM PROGRAM DIRECTOR/MUSIC DIRECTOR 1 mg/kg/hr 9.46 mL/hr tranexamic acid (CYKLOKAPRON) 1,000 mg/10 mL (100 mg/mL) solution intravenous, As needed, Starting on Wed11/24/21 at 0836, Anesthesia Intra-op Given 11/24/2021 8:36 AM PROGRAM DIRECTOR/MUSIC DIRECTOR 1,365 mg documented in this encounter Care Teams Furnace Erector Relationship Specialty [place] [address] [address] PCP - General 11/12/16 03/11/22 documented as of this encounter
--- OUTSIDE RECORDS SUMMARY | 2024-10-11 02:00 | XMS_ITS | Encounter Summary ---
Author Organization [facility] Medical Group Address [address] [place] [address] Care Team Providers Care Emergency Planning And Response Manager Name Role Phone Santino Funk MD Primary Care Provider + Encounter Details Date Type Department Care Team (Latest Contact Info) Description 08/22/2021 8:28 AM CARPENTER'S HELPER - 08/22/2021 11:59 PM CARPENTER'S HELPER Hospital Encounter [facility] [id number] [address] Discharge Disposition: Discharge to home [...] on file Legal Sex Male 3:25 PM CARPENTER'S HELPER Gender Identity Not on file Sexual Orientation Not on file documented as of this encounter Medications at Time of Discharge cholecalciferol (VITAMIN D-3) 2000 unit capsule Take 1 capsule (2,000 Units total) by mouth daily 30 capsule 3 12/31/2019 tamsulosin (FLOMAX) 0.4 mg extended release capsule Take 1 capsule (0.4 mg total) by mouth nightly 01/29/2020 turmeric root extract 500 mg capsule Take 1,000 mg by mouth nightly acetaminophen 500 mg capsuleIndications :Pain Take 2 capsules (1,000 mg total) by mouth every 6 (six) hours 30 tablet 1 12/30/2019 2 aspirin 325 mg tablet Take 1 tablet (325 mg total) by mouth 2 (two) times a day 60 tablet 1 11/25/2021 2 aspirin 325 mg tablet Take 1 tablet (325 mg total) by mouth 2 (two) times a day 60 tablet 1 11/26/2021 2 aspirin-sodium bicarbonate-citric acid (ELIUD-SELTZER) 324 mg tablet, effervescent Take 325 mg by mouth daily as needed (upset stomach) 1 bismuth subsalicylate (PEPTO-BISMOL) suspension Take 15 mL by mouth every 6 (six) hours as needed for indigestion 1 docusate sodium (COLACE) 100 mg capsuleIndications :constipation Take 1 capsule (100 mg total) by mouth 2 (two) times a day. 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) Take 1 tablet (10 mg total) by mouth nightly 30 tablet 5 10/07/2020 1 guaifenesin/pseudo ephedrne HCl (MUCINEX D MAXIMUM STRENGTH ORAL)Indications:c ough Take 15 mL by mouth daily as needed 1 HYDROcodone-acetam inophen (NORCO) 7.5-325 mg per tabletIndications: Pain Take 1 tablet by mouth every 8 (eight) hours as needed for pain 2 levothyroxine (SYNTHROID) 125 mcg tablet Take 150 mcg by mouth allergist immunologist before breakfast 2 omeprazole (PriLOSEC) 20 mg capsule take 1 capsule by oral route every day before a meal 0 0 10/21/2016 4 oxybutynin XL (DITROPAN-XL) 5 mg 24 hr tablet Take 10 mg by mouth 3 (three) times a day 2 oxyCODONE (ROXICODONE) 5 mg immediate release tabletIndications: Pain Take 1 tablet (5 mg total) by mouth every 4 (four) hours as needed for pain 20 tablet 12/30/2019 1 oxyCODONE-acetamin ophen (PERCOCET) 10-325 mg per tabletIndications: Pain Take 1 tablet by mouth every 4 (four) hours as needed for pain 42 tablet 11/25/2021 2 oxyCODONE-acetamin ophen (PERCOCET) 10-325 mg per tabletIndications: Pain Take 1 tablet by mouth every 4 (four) hours as needed for pain 42 tablet 11/26/2021 2 polyethylene glycol (MIRALAX) 17 gram/dose powderIndications: constipation Mix 1 scoop (17 g) in 8 oz of water and drink daily. 85 g 12/10/2018 1 pramipexole (MIRAPEX) 0.125 mg tablet 1-2 tablet nightly 1 senna-docusate (PERICOLACE) 8.6-50 mgIndications:cons tipation Take 2 tablets by mouth 2 (two) times a day 60 tablet 2 11/25/2021 2 senna-docusate (PERICOLACE) 8.6-50 mgIndications:cons tipation Take 2 tablets by mouth 2 (two) times a day 60 tablet 2 11/26/2021 3 sildenafil, antihypertensive, (REVATIO) 20 mg tabletIndications: erectile dysfunction Take 20 mg by mouth daily as needed 5 11/11/2018 1 tadalafiL (CIALIS) 20 mg tabletIndications: Erectile dysfunction, unspecified erectile dysfunction type Take 1 tablet (20 mg total) by mouth daily as needed for erectile dysfunction 12 tablet 3 09/10/2020 1 temazepam (RESTORIL) 30 mg capsule TK ONE C PO QHS PRN 09/04/2020 1 tiZANidine (ZANAFLEX) 2 mg tablet Take 2 tablets (4 mg total) by mouth nightly 1 to 2 tablets at bedtime 60 tablet 5 08/26/2020 1 traZODone (DESYREL) 50 mg tablet Take by mouth nightly 1/2 to 1 tablet 08/15/2021 4 triamcinolone (KENALOG) 0.1 % cream APPLY TID ON THE SKIN PRN 01/29/2020 1 UNABLE TO FIND Take 1 each by mouth daily as needed Z Quil cough syrup 1 Ventolin HFA 90 mcg/actuation inhaler Inhale 2 puffs every 4 (four) hours as needed for wheezing 11/11/2019 1 documented as of this encounter Discharge Disposition Disposition Code Departure Means Destination Discharge to home or self care documented in this encounter Plan of Treatment Upcoming Encounters Date Type Department Care Team (Latest Contact Info) Description 10/23/2024 10:00 AM CARPENTER'S HELPER Hospital Encounter [facility] [address] [place] [id number] [place] [address] [address] 10/23/2024 10:00 AM CARPENTER'S HELPER - 10/23/2024 1:00 PM CARPENTER'S HELPER Surgery [facility] [address] [place] [id number] [place] [address] [address] ARTHROPLASTY TOTAL KNEE LEFT Scheduled Procedures Name Priority Associated Diagnoses Date/Ti me ARTHROPLASTY TOTAL KNEE left knee osteoarthritis 10/23/2024 10:00 AM CARPENTER'S HELPER ESOPHAGOGASTRODUODENOSCOPY Dysphagia, unspecified type documented as of this encounter Procedures Procedure Name Priority Date/Time Associated Diagnosis Comments XR KNEE BILATERAL 3 VIEWS Schedule Routine, Read Routine (OP Routine) 08/22/2021 8:57 AM CARPENTER'S HELPER Primary osteoarthritis of left knee Primary osteoarthritis of right knee documented in this encounter Results * XR Knee Bilateral 3 Views (08/22/2021 8:57 AM CARPENTER'S HELPER) Anatomical Region Laterality Modality Lower Extremities, Knee Bilateral Computed Radiography Narrative 08/22/2021 11:07 AM CARPENTER'S HELPER Bilateral knees three views demonstrates advanced varus arthritis of both knees, with subchondral sclerosis, subchondral cysts and [id number] contact in the medial compartment. ??Patellofemoral changes are also noted. us Jossie SANDOVAL IMG XR PROCEDURES Final Resul t documented in this encounter Visit Diagnoses Not on filedocumented in this encounter Care Teams Emergency Planning And Response Manager Relationship Specialty [place] [address] [facility] [address] [place] [address] PCP - General 11/12/16 03/11/22 documented as of this encounter
--- OUTSIDE RECORDS SUMMARY | 2024-10-11 02:00 | XMS_ITS | Encounter Summary ---
Author Organization [facility] Healthcare Address [address] [place] [address] Care Team Providers Care Orthodontic Technician Name Role Phone Santino Funk MD Primary Care Provider + Encounter Details Date Type Department Care Team (Late st Contact Info) Description 12/17/2021 2:50 PM [facility] [address] [phone] Social History Tobacco Use Types Packs/Day Years [...] relatives? Three times a week 11/25/2021 Attends [employer] Services Not on file 11/25 Active Member [...] on file Legal Sex Male 3:25 PM [facility] Gender Identity Not on file Sexual Orientation Not on file documented as of this encounter Plan of Treatment Upcoming Encounters Date Type Department Care Team (Latest Contact Info) Description 10/23/2024 10:00 AM [facility] Hospital Encounter [facility] [address] [place] [id number] [place] [id number] [id number] 10/23/2024 10:00 AM [facility] [employer] [facility] - 10/23/2024 1:00 PM [facility] Surgery [facility] [address] [place] [id number] [place] [address] [place] [address] ARTHROPLASTY TOTAL KNEE LEFT Scheduled Procedures Name Priority Associated Diagnoses Date/Ti me ARTHROPLASTY TOTAL KNEE left knee osteoarthritis 10/23/2024 10:00 AM [facility] ESOPHAGOGASTRODUODENOSCOPY Dysphagia, unspecified type documented as of this encounter Procedures Procedure Name Priority Date/Time Associated Diagnosis Comments DIFFERENTIAL AUTO Routine 12/17/2021 2:4 8 PM [facility] IRON PROFILE W/ IBC Routine 12/17/2021 2 :48 PM [facility] URINALYSIS AND REFLEX TO MICROSCOPIC Routine 12/17/2021 2:48 PM [facility] [employer] [facility] CBC WITH AUTO DIFFERENTIAL Routine 12/17/2021 2:48 PM [facility] VITAMIN D 25 HYDROXY Routine 12/17/2021 2:48 PM [facility] [employer] [facility] TSH Routine 12/17/2021 2:48 PM [facility] [employer] [facility] T4, FREE Routine 12/17/2021 2:48 PM [facility] FERRITIN Routine 12/17/2021 2:48 PM [facility] COMPREHENSIVE METABOLIC PANEL Routine 12/17/2021 2:48 PM [facility] [employer] [facility] documented in this encounter Results * Differential, auto (12/17/2021 2:48 PM [facility] [employer] [facility]) Neutrophil abs 4.9 1.7 - 6.5 K/cumm [facility] Imm gran abs 0.0 0.0 - 0.1 K/cumm [facility] Lymphocyte abs 2.1 0.8 - 3.3 K/cumm [facility] Monocyte abs 0.8 0.2 - 0.8 K/cumm [facility] Eosinophil abs 0.4 0.0 - 0.5 K/cumm [facility] Basophil abs 0.0 0.0 - 0.1 K/cumm [facility] Neutrophil pct 59.0 % [facility] Comment: Interpretive Data Percent cell count reference ranges are not reported, since discordance with absolute values may lead to misinterpretation of CBC data. Current Interpretive Data was last revised on 2018. Imm gran pct 0.5 % [facility] Comment: Interpretive Data Percent cell count reference ranges are not reported, since discordance with absolute values may lead to misinterpretation of CBC data. Current Interpretive Data was last revised on 2018. Lymphocyte pct 25.1 % [facility] Comment: Interpretive Data Percent cell count reference ranges are not reported, since discordance with absolute values may lead to misinterpretation of CBC data. Current Interpretive Data was last revised on 2018. Monocyte pct 10.1 % C[facility] Comment: Interpretive Data Percent cell count reference ranges are not reported, since discordance with absolute values may lead to misinterpretation of CBC data. Current Interpretive Data was last revised on 2018. Eosinophil pct 4.8 % [facility] Comment: Interpretive Data Percent cell count reference ranges are not reported, since discordance with absolute values may lead to misinterpretation of CBC data. Current Interpretive Data was last revised on 2018. Basophil pct 0.5 % [facility] Comment: Interpretive Data Percent cell count reference ranges are not reported, since discordance with absolute values may lead to misinterpretation of CBC data. Current Interpretive Data was last revised on 2018. Blood 12/17/2021 2:48 PM [facility] 12/17/2021 4:46 PM [facility] [employer] [facility] Santino Funk MD LAB BLOOD ORDERABLES Fin al Result MARVIN [address] Department [place] [address] * Vitamin D 25 hydroxy (12/17/2021 2:48 PM [facility] [employer]) Vitamin D 25-OH 68 30 - 80 ng/mL MARVIN FISHER Blood 12/17/2021 2:48 PM [facility] 12/17/2021 4:46 PM [facility] Santino Funk MD LAB BLOOD ORDERABLES Fin al Result Performing Organization Address [facility] de Phone Number CERDEE [address] Department [place] [address] * (ABNORMAL) Urinalysis reflex to microscopic (12/17/2021 2:48 PM [facility]) Color, ur Thea Yellow [facility] Clarity, ur Clear Clear [facility] Specific gravity, ur 1.029 1.003 - 1.030 [facility] pH, urine 5.0 [facility] Protein, ur ql Negative Negative [facility] Glucose, ur ql Negative Negative [facility] Ketones, ur Negative Negative [facility] Bilirubin, ur Negative Negative [facility] Blood, ur Negative Negative [facility] Urobilinogen, ur 4.0(A) <2.0 mg/dL [facility] Nitrite, ur Negative Negative [facility] Leukocyte esterase, ur Negative Negative [facility] UA reflex comment Reflex conditions for microscopic UA not met. [facility] Urine 12/17/2021 2:48 PM [facility] 12/17/2021 4:46 PM [facility] Narrative [facility] - 12/17/2021 5:21 PM [facility] ?? Urine pH is affected by diet, medications, systemic acid-base disturbances, and renal tubular function. ??pH may affect urinary stone formation. ??For example, urine pH below 6.0 may help reduce the tendency for calcium phosphate stones and pH greater than 6.0 may reduce the tendency for uric acid stone formation. Source: [facility] [place]. Last revised 10-21-2017 Santino Funk MD LAB URINE ORDERABLES Fin al Result Performing Organization Address [facility] Co de Phone Number MARVIN FISHER [address] [place] [address] * TSH (12/17/2021 2:48 PM [facility]) Thyroid Stimulating Hormone 1.84 0.30 - 4.20 mcIUnit/mL [facility] Blood 12/17/2021 2:48 PM [facility] 12/17/2021 4:46 PM [facility] Santino Funk MD LAB BLOOD ORDERABLES Fin al Result Performing Organization Address City/[facility] Co de Phone Number MARVIN FISHER [address] [facility] [place] [address] * (ABNORMAL) T4, free (12/17/2021 2:48 PM [facility]) Free T4 1.87(H) 0.90 - 1.70 ng/dL [facility] Blood 12/17/2021 2:48 PM [facility] 12/17/2021 4:46 PM [facility] Santino Funk MD LAB BLOOD ORDERABLES Fin al Result Performing Organization Address [facility] de Phone Number MARVIN FISHER [phone] [place] [address] * (ABNORMAL) Iron profile w/ IBC (12/17/2021 2:48 PM [facility]) Iron 72 50 - 150 mcg/dl [facility] TIBC 205(L) 250 - 400 mcg/dL [facility] Transferrin saturation 35 20 - 50 % [facility] Blood 12/17/2021 2:48 PM [facility] 12/17/2021 4:46 PM [facility] Santino Funk MD LAB BLOOD ORDERABLES Fin al Result Performing Organization Address [facility] Co de Phone Number MARVIN FISHER [address] [place] [address] * (ABNORMAL) Ferritin (12/17/2021 2:48 PM [facility] [employer]) Ferritin 491(H) 30 - 400 ng/mL [facility] Blood 12/17/2021 2:48 PM [facility] [employer] 12/17/2021 4:46 PM [facility] [facility] Santino Funk MD LAB BLOOD ORDERABLES Fin al Result Performing Organization Address [facility] Co de Phone Number MARVIN FISHER [address] Department [place] [address] * (ABNORMAL) CBC with auto differential (12/17/2021 2:48 PM [facility] [employer]) Pathologist [facility] WBC 8.2 3.8 - 9.9 K/cumm [facility] Hgb 14.1 13.0 - 17.5 g/dL [facility] Hct 42.7 38.9 - 50.3 % [facility] Plt 332 150 - 400 K/cumm [facility] MPV 10.2 9.1 - 12.3 fL [facility] RBC 4.11(L) 4.30 - 5.80 M/cumm [facility] MCV 103.9(H) 81.3 - 96.4 fL [facility] MCH 34.3(H) 27.1 - 33.3 pg [facility] MCHC 33.0 32.3 - 35.7 g/dL [facility] RDW CV 12.5 11.1 - 14.9 % [facility] RDW SD 48.1 35.7 - 48.1 fL [facility] NRBC abs 0.00 0.00 - 0.01 K/cumm [facility] Blood 12/17/2021 2:48 PM [facility] [employer] 12/17/2021 4:46 PM [facility] us Santino Funk MD LAB BLOOD ORDERABLES Fin al Result MARVIN FISHER [address] Department [place] [address] * (ABNORMAL) Comprehensive metabolic panel (12/17/2021 2:48 PM [facility]) [facility] Sodium 139 135 - 145 mmol/L [facility] Potassium, pl 4.4 3.3 - 4.9 mmol/L [facility] Chloride 103 97 - 110 mmol/L [facility] CO2 25 22 - 32 mmol/L [facility] Anion gap 11 2 - 15 mmol/L [facility] BUN 24 8 - 25 mg/dL [facility] Creatinine 1.26 0.80 - 1.30 mg/dL [facility] Glucose 101 70 - 199 mg/dL [facility] Comment: [...] classification and Diagnosis of Diabetes Diabetes Care 2017;40 (Suppl. 1):S11. Current interpretive data was last revised 2017. Calcium 9.4 8.5 - 10.3 mg/dL [facility] Bilirubin, total 0.6 0.1 - 1.2 mg/dL [facility] Protein, pl 6.7 6.5 - 8.5 g/dL [facility] Albumin 4.0 3.5 - 5.0 g/dL [facility] Alk phos 133(H) 40 - 130 Units/L [facility] ALT 10 7 - 55 Units/L [facility] AST 19 10 - 50 Units/L [facility] Blood 12/17/2021 2:48 PM [facility] 12/17/2021 4:46 PM [facility] us Santino Funk MD LAB BLOOD ORDERABLES Fin al Result Performing Organization Address City/State/[facility] Co de Phone Number MARVIN FISHER [address] Department [place] [address] documented in this encounter Visit Diagnoses Not on filedocumented in this encounter Care Teams Orthodontic Technician Relationship Specialty [place] [address] [place] [address] PCP - General 11/12/16 03/11/22 documented as of this encounter
--- OUTSIDE RECORDS SUMMARY | 2024-10-11 02:00 | XMS_ITS | Encounter Summary ---
Author Organization [facility] Address [address] [facility] [address] [place] [address] Care Team Providers Care Schedule Planning Manager Name Role Phone Santino Funk MD Primary Care Provider + Reason for Referral * Procedure (Routine) - Closed Specialty Diagnoses / Procedures Referred By Contac t Referred To Contact Diagnoses Primary osteoarthritis of left knee Primary osteoarthritis of right knee Procedures Large Joint (Hip, Knee, Shoulder) [place]: [place] [address] [place] [address] Phone: tel: fax: [facility] Referral ID Status Reason Start Date Expiration Date Visits Re quested Visits Authorized [id number] Closed 08/22/2021 09/21/2022 1 1 ICATOR * Procedure (Routine) - Closed Specialty Diagnoses / Procedures Referred By Contac t Referred To Contact Diagnoses Primary osteoarthritis of left knee Primary osteoarthritis of right knee Procedures Large Joint (Hip, Knee, Shoulder) [place]: [place] [address] [place] [address] Phone: tel: fax: [facility] Referral ID Status Reason Start Date Expiration Date Visits Re quested Visits Authorized [id number] Closed 08/22/2021 09/21/2022 1 1 ICATOR Reason for Visit * Reason Comments Follow-up Injections Follow-up Injections Encounter Details Date Type Department Care Team (Latest Contact Info) Description 08/22/2021 8:15 AM ERADICATOR Office Visit [facility] [address] [facility] [address] [place] [phone] [place] [address] [address] Primary osteoarthritis of left knee (Primary Dx); Primary osteoarthritis of right knee Social History Tobacco Use Types Packs/Day Years Used Date Smoking Tobacco: Former Cigarettes 1 1966 Smokeless Tobacco: Never Alcohol Use Standard Drinks/Week Comments Yes 1 (1 standard drink = 0.6 oz pur e alcohol) PHQ-2 Answer Date Recorded PHQ-2 Score 0 12/12/2018 Sex and Gender Information Value Date Recorded Sex Assigned at Not on file Legal Sex Male 3:25 PM ERADICATOR Gender Identity Not on file Sexual Orientation Not on file documented as of this encounter Last Filed Vital Signs Vital Sign Reading Time Taken Comments Blood Pressure - - Pulse - - Temperature - - Respiratory Rate - - Oxygen Saturation - - Inhaled Oxygen Concentration - - Weight 93.9 kg (207 lb) 08/22/2021 8:21 AM ERADICATOR Height 180.3 cm (5' 11 ) 08/22/2021 8:21 AM ERADICATOR Body Mass Index 28.87 08/22/2021 8:21 AM ERADICATOR documented in this encounter Progress Notes * Jossie Montalvo PA - 08/22/2021 8:15 AM CSTAssociated Order(s): Large Joint (Hip, Knee, Shoulder) Injection: R knee; Large Joint (Hip, Knee, Shoulder) Injection: L knee Post-Procedure Diagnose(s): Primary osteoarthritis of left knee; Primary osteoarthritis of right knee Images from the original note were not included. Orthopedic history and physical Subjective CHIEF COMPLAINT He had concerns including Follow-up and Injections of the Right Knee and Follow- up and Injections of the Left Knee. HISTORY OF PRESENT ILLNESS This is a pleasant 76-year-old male who is known to this office from prior arthroscopic knee surgery. He has osteoarthritis of both knees and since his arthroscopic procedure 2 years ago, has been managed with periodic cortisone injections. He has not been in the office for nearly a year due to a change in his insurance plan. He is now back with insurance company that is accepted by this office. He reports that both of his knees are painful, right is currently worse than the left. He has a lot of stiffness after sitting, the knees will ???lock up?? , and there is swelling that comes and goes.Injections help with the pain but do not relieve it completely. He is interested in further surgery for his knees, his is actually scheduled for knee replacement at [facility] at the end of this year so his timing for surgery would need to be coordinated with her procedure as well. Pain Assessment Pain Assessment: 0-10 Pain Score: 8 Pain Location: Knee Pain Orientation: Right,Left Pain Descriptors: Sharp (Locking, swelling) Pain Frequency: Frequently Pain Onset: Ongoing Clinical Progression: Gradually worsening PAST MEDCIAL HISTORY He has a past medical history of Acute gastric ulcer without hemorrhage or perforation, Asthma, Cataract, Closed fracture of left tibial plateau with delayed healing, Closed fracture of right tibial plateau with delayed healing, Closed nondisplaced osteochondral fracture of left patella with delayed healing, Closed osteochondral fracture of patella, right, with delayed healing, subsequent encounter, Complex tear of medial meniscus of left knee as current injury, Complex tear of medial meniscus of right knee as current injury, Depression, Gastroesophageal reflux disease, Osteoarthritis, Pepticulcer, Personal history of diseases of skin or subcutaneous tissue, Seizures (CMS/HCC) ([facility]) (1997), SOB (shortness of breath) on exertion, Subchondral insufficiency fracture of condyle of left femur(CMS/HCC) ([facility]), and Visual disturbance.He has no past medical history of Motion sickness, PONV (postoperative nausea and vomiting), or Sleep apnea. PAST SURGICAL HISTORY He has a past surgical history that includes pr abdomen surgery proc unlisted; Hernia repair (1979); Cataract extraction, bilateral (Bilateral, 2017); and Thyroidectomy (12/27/2019). MEDICATIONS He has a current medication list which includes the following prescription(s): acetaminophen, aspirin-sodium bicarbonate-citric acid, bismuth subsalicylate, cholecalciferol, docusate sodium, donepezil, guaifenesin/pseudoephedrne hcl, hydrocodone-acetaminophen, levothyroxine, omeprazole, oxybutynin xl, oxycodone, polyethylene glycol, pramipexole, sildenafil (pulm.hypertension), tadalafil, tamsulosin, temazepam, tizanidine, trazodone, triamcinolone, turmeric root extract, UNABLE TO FIND, and ventolin hfa. ALLERGIES He has No Known Allergies. SOCIAL HISTORY He reports that he quit smoking about 54 years ago. His smoking use included cigarettes. He startedsmoking about 55 years ago. He has never used smokeless tobacco. He reports current alcohol use of about 1.0 standard drink of alcohol per week. He reports that he does not use drugs. FAMILY HISTORY His family history includes Heart [...] shortness of breath. Cardiovascular: Positive for leg swelling (bilateral pedal edema). Negative for chest pain. Gastrointestinal: Negative for abdominal distention, abdominal pain and vomiting. Endocrine: Negative for cold intolerance and heat intolerance. Genitourinary: Negative for dysuria and flank pain. Musculoskeletal: Positive for arthralgias, gait problem and joint swelling. Negative for neck pain. Skin: Negative for color change and rash. Allergic/Immunologic: Negative for immunocompromised state. Neurological: Negative for dizziness, speech difficulty and weakness. Hematological: Negative for adenopathy. Psychiatric/Behavioral: Positive for decreased concentration (memory loss). Negative for hallucinations. Objective PHYSICAL EXAM Ht 180.3 cm (5' 11 ) Wt 93.9 kg (207 lb) BMI 28.87 kg/m?? Physical Exam HENT: Head: Normocephalic and atraumatic. Eyes: Pupils: Pupils are equal, round, and reactive to light. Cardiovascular: Rate and Rhythm: Normal rate and regular rhythm. Pulmonary: Effort: Pulmonary effort is normal. Breath sounds: Normal breath sounds. Abdominal: Palpations: Abdomen is soft. Musculoskeletal: Cervical back: Normal range of motion. Right knee: Instability Tests: Medial Zoila test negative and lateral Zoila test negative. Left knee: Instability Tests: Medial Zoila test negative and lateral Zoila test negative. Skin: General: Skin is warm and dry. Neurological: Mental Status: He is alert and oriented to person, place, and time. Psychiatric: Mood and Affect: Affect normal. Right knee Inspection Erythema: absent Cellulitis: absent Swelling: moderate Surgical scar/wound: present. The surgical scar/wound is healed. Skin temperature: normal Alignment: varus Gait: antalgic Palpation Tenderness: present. The tenderness is located in the patella and medial joint line. Patellar tracking: normal Crepitus: positive Patella grind: negative Subluxation: negative Range of [...] OF X-RAYS/STUDIES/LABS XR Knee Bilateral 3 Views Bilateral knees three views demonstrates advanced varus arthritis of both knees, with subchondral sclerosis, subchondral cysts and qgbx-[id number] contact in the medial compartment. Patellofemoral changes are also noted. Assessment/Plan Abrahan was seen today for follow-up, injections, follow-up and injections. Diagnoses and all orders for this visit: Primary osteoarthritis of left knee - XR Knee Bilateral 3 Views Primary osteoarthritis of right knee - XR Knee Bilateral 3 Views Large Joint (Hip, Knee, Shoulder) Injection: R knee Performed by: Jossie Montalvo PA Authorized by: Jossie Montalvo PA Large Joint Injection/Aspiration: Consent Given by: Patient Site marked: the procedure site was marked Verbal consent obtained: Yes Supporting Documentation: Indications: Pain Procedure Details: Location: Knee Site: R knee Prep: patient was prepped and draped [...] procedure well with no immediate complications PLAN Treatment options were discussed, he anticipates undergoing knee replacement early next year, beginning with the right knee is it is the more symptomatic knee. His is having surgery at the end of the year and he wants to wait until she is recovered from her knee replacement surgery. We discussed the procedure at length including specifics of the procedure, hospital stay, anticipated therapy and recovery time. Risks of surgery were discussed including infection, nerve and blood vessel damage, heart attack, stroke, failure to relieve the pain and the possible need for further surgery. The patient understands risks and wishes to proceed as outlined. Both knees were injected today under sterile conditions without complication, post injection instructions were given. All questions were answered. Patient was also seen by Dr. Sepulveda today. Follow-up will be at the time of surgery. LORI Craig Cosigned by George Sepulveda MD at 08/22/2021 11:47 AM ERADICATOR ICATOR ICATOR documented in this encounter Plan of Treatment Upcoming Encounters Date Type Department Care Team (Latest Contact Info) Description 10/23/2024 10:00 AM ERADICATOR Hospital Encounter [facility] Operating Room [address] [place] [id number] [place] [id number] [place] [id number] 10/23/2024 10:00 AM ERADICATOR - 10/23/2024 1:00 PM ERADICATOR Surgery [facility] Operating Room [address] [place] [id number] [place] [address] [id number] ARTHROPLASTY TOTAL KNEE LEFT Scheduled Procedures Name Priority Associated Diagnoses Date/Ti me ARTHROPLASTY TOTAL KNEE left knee osteoarthritis 10/23/2024 10:00 AM ERADICATOR ESOPHAGOGASTRODUODENOSCOPY Dysphagia, unspecified type documented as of this encounter Procedures Procedure Name Priority Date/Time Associated Diagnosis Comments XR KNEE BILATERAL 3 VIEWS Schedule Routine, Read Routine (OP Routine) 08/22/2021 8:57 AM ERADICATOR Primary osteoarthritis of left knee Primary osteoarthritis of right knee CT ARTHROCENTESIS ASPIR&/INJ MAJOR JT/BURSA W/O US Routine 08/22/2021 8:15 AM ERADICATOR Primary osteoarthritis of left knee Primary osteoarthritis of right knee CT ARTHROCENTESIS ASPIR&/INJ MAJOR JT/BURSA W/O US Routine 08/22/2021 8:15 AM ERADICATOR Primary osteoarthritis of left knee Primary osteoarthritis of right knee documented in this encounter Results * XR Knee Bilateral 3 Views (08/22/2021 8:57 AM ERADICATOR) Anatomical Region Laterality Modality Lower Extremities, Knee Bilateral Computed Radiography Narrative 08/22/2021 11:07 AM ERADICATOR Bilateral knees three views demonstrates advanced varus arthritis of both knees, with subchondral sclerosis, subchondral cysts and [id number]-gm-[id number] contact in the medial compartment. ??Patellofemoral changes are also noted. us Jossie SANDOVAL IMG XR PROCEDURES Final Resul t * CT ARTHROCENTESIS ASPIR&/INJ MAJOR JT/BURSA W/O US (08/22/2021 8:15 AM ERADICATOR) Narrative George Sepulveda MD - 08/22/2021 8:15 AM ERADICATOR Jossie Montalvo PA ? 08/22/2021 11:16 AM Large Joint (Hip, Knee, Shoulder) Injection: [...] SANDOVAL IN CLINIC/BEDSIDE ORDERABLES Final Result * CT ARTHROCENTESIS ASPIR&/INJ MAJOR JT/BURSA W/O US (08/22/2021 8:15 AM ERADICATOR) Narrative George Sepulveda MD - 08/22/2021 8:15 AM ERADICATOR Jossie Montalvo PA ? 08/22/2021 11:16 AM Large Joint (Hip, Knee, Shoulder) Injection: R knee Performed by: Jossie Montalvo PA Authorized by: Jossie Montalvo PA Large Joint Injection/Aspiration: ??Consent Given by: ??Patient ??Site marked: the procedure site was marked ?Verbal consent obtained: Yes ?? Supporting Documentation: ??Indications: ??Pain Procedure Details: ??Location: ??Knee ??Site: ??R knee ??Prep: patient was prepped and draped in usual sterile fashion ?Medications: ??4 mL lidocaine 10 mg/mL (1 %); 80 mg methylPREDNISolone acetate 40 mg/mL ??Patient tolerance: ??Patient tolerated the procedure well with no immediate complications Jossie SANDOVAL IN CLINIC/BEDSIDE ORDERABLES Final Result documented in this encounter Visit Diagnoses Diagnosis Primary osteoarthritis of left knee- Primary Primary osteoarthritis of right knee documented in this encounter Administered Medications Inactive Administered Medications - up to 3 most recent administrations Medication Order MAR Action Action Date Dose Rate Site lidocaine (XYLOCAINE) 10 mg/mL (1 %) injection 4 mL 4 mL, One-Time Injection, Starting on Wed08/22/21 at 1116, For 1 dose, Indications: Administration of Local AnesthesiaIndications:Administrati on of Local Anesthesia Given 08/22/2021 11:16 AM ERADICATOR 4 mL lidocaine (XYLOCAINE) 10 mg/mL (1 %) injection 4 mL 4 mL, One-Time Injection, Starting on Wed08/22/21 at 1116, For 1 dose, Indications: Administration of Local AnesthesiaIndications:Administrati on of Local Anesthesia Given 08/22/2021 11:16 AM ERADICATOR 4 mL methylPREDNISolone acetate (DEPO-medrol) injection 80 mg 80 mg, intra-articular, One-Time Injection, Starting on Wed08/22/21 at 1116, For 1 doseIndications:Primary osteoarthritis of left knee,Primary osteoarthritis of right knee Given 08/22/2021 11:16 AM ERADICATOR 80 mg methylPREDNISolone acetate (DEPO-medrol) injection 80 mg 80 mg, intra-articular, One-Time Injection, Starting on Wed08/22/21 at 1116, For 1 doseIndications:Primary osteoarthritis of left knee,Primary osteoarthritis of right knee Given 08/22/2021 11:16 AM ERADICATOR 80 mg documented in this encounter Historical Medications * This list may reflect changes made after this encounter. traZODone (DESYREL) 50 mg tablet Take by mouth nightly 10/12 to 1 tablet 08/15/2021 10/11/2023 added in this encounter Care Teams Schedule Planning Manager Relationship Specialty [place] [address] [facility] [place] [address] PCP - General 11/12/16 03/11/22 documented as of this encounter
--- OUTSIDE RECORDS SUMMARY | 2024-10-11 02:00 | XMS_ITS | Encounter Summary ---
Author Organization [facility] Address [address] [facility] [address] [place] [address] Care Team Providers Care Medical Office Clerk Name Role Phone Santino Funk MD Primary Care Provider + Encounter Details Date Type Department Care Team (Late st Contact Info) Description 10/30/2021 Telephone [facility] [id number] [phone] Maura Serrano Social History Tobacco Use Types Packs/Day Years Used Date Smoking Tobacco: Former Cigarettes 1 966 - 5237 Smokeless Tobacco: Never Alcohol Use Standard Drinks/Week Comments Yes 1 (1 standard drink = 0.6 oz pur e alcohol) PHQ-2 Answer Date Recorded PHQ-2 Score 0 12/12/2018 Sex and Gender Information Value Date Recorded Sex Assigned at Not on file Legal Sex Male 3:25 PM PROJECT LEAD Gender Identity Not on file Sexual Orientation Not on file documented as of this encounter Miscellaneous Notes * Telephone Encounter - Maura Serrano - 10/30/2021 12:59 PM CST SPOKE WITH PT, AND ADDRESSED CONCERNS ECT LEAD * Telephone Encounter - Joana Suresh - 10/30/2021 9:53 AM CST Patient requesting return call [phone] ECT LEAD documented in this encounter Plan of Treatment Upcoming Encounters Date Type Department Care Team (Latest Contact Info) Description 10/23/2024 10:00 AM PROJECT LEAD Hospital Encounter [facility] Operating Room [address] [place] [address] [place] [address] [id number] 10/23/2024 10:00 AM PROJECT LEAD - 10/23/2024 1:00 PM PROJECT LEAD Surgery [facility] Operating Room [address] [place] [id number] [place] [address] [address] ARTHROPLASTY TOTAL KNEE LEFT Scheduled Procedures Name Priority Associated Diagnoses Date/Ti me ARTHROPLASTY TOTAL KNEE left knee osteoarthritis 10/23/2024 10:00 AM PROJECT LEAD ESOPHAGOGASTRODUODENOSCOPY Dysphagia, unspecified type documented as of this encounter Visit Diagnoses Not on filedocumented in this encounter Care Teams Medical Office Clerk Relationship Specialty [place] [address] [facility] [address] PCP - General 11/12/16 03/11/22 documented as of this encounter
--- OUTSIDE RECORDS SUMMARY | 2024-10-11 02:00 | XMS_ITS | Encounter Summary ---
Author Organization [facility] Address [address] [place] [address] Phone Care Team Providers Care Rehab Nurse Name Role Phone Santino Funk MD Primary Care Provider + Reason for Visit * Reason Comments Urinary Urgency pt is here to estab care and talk about urgency and ed Erectile Dysfunction Encounter Details Date Type Department Care Team (Late st Contact Info) Description 09/10/2020 2:00 PM MANAGER VEHICLE Office Visit [facility]) - [facility] Urology [id number] [place] [phone] Jessie Andrade, GEOTECHNICAL OPERATING ENGINEER [id number] [place] [address] [address] [address] Erectile dysfunction, unspecified erectile dysfunction type (Primary Dx); Screening for hematuria or proteinuria; Other urinary incontinence; Weak urinary stream Social History Tobacco Use Types Packs/Day Years Used Date Smoking Tobacco: Former Cigarettes 1 [phone] Smokeless Tobacco: Never Alcohol Use Standard Drinks/Week Comments Yes 1 (1 standard drink = 0.6 oz pur e alcohol) PHQ-2 Answer Date Recorded PHQ-2 Score 0 12/12/2018 Sex and Gender Information Value Date Recorded Sex Assigned at Not on file Legal Sex Male 3:25 PM MANAGER VEHICLE Gender Identity Not on file Sexual Orientation Not on file documented as of this encounter Last Filed Vital Signs Vital Sign Reading Time Taken Comments Blood Pressure 153/83 09/10/2020 2:17 PM MANAGER VEHICLE Pulse 69 09/10/2020 2:17 PM MANAGER VEHICLE Temperature 35.9 ??C (96.6 ??F) 09/10/2020 2:17 PM CS T Respiratory Rate 17 09/10/2020 2:17 PM MANAGER VEHICLE Oxygen Saturation - - Inhaled Oxygen Concentration - - Weight 98.9 kg (218 lb) 09/10/2020 2:17 PM MANAGER VEHICLE Height 180.3 cm (5' 11 ) 09/10/2020 2:17 PM MANAGER VEHICLE Body Mass Index 30.4 09/10/2020 2:17 PM MANAGER VEHICLE documented in this encounter Ordered Prescriptions Prescription Sig Dispense Quantity Refills Last Filled Start Date End Date tadalafiL (CIALIS) 20 mg tabletIndications: Erectile dysfunction, unspecified erectile dysfunction type Take 1 tablet (20 mg total) by mouth daily as needed for erectile dysfunction 12 tablet 3 09/10/2020 1 documented in this encounter Progress Notes * Jessie Andrade, GEOTECHNICAL OPERATING ENGINEER - 09/10/2020 2:00 PM CST Urology History and Physical CC: Erectile dysfunction HPI: Mr. Gtz is a 76 y.o. Black Or who is being seen at the request of Santino Funk MD for evaluation of erectile dysfunction. His ED is secondary to an unknown cause. He has several years of erectile dysfunction, and it has progressed in severity. He is no longer able to achieve a sustained erection or an erection that is sufficient for penetration. He has failed the oral erectile medication sildenafil (Headache) and Cialis (not covered by his insurance company). He has not tried a vacuum erection device, MUSE or penile injections. He notes a good libido and is . BEBE score 6 (QOL 1/10). There is no hx of hematuria or dysuria, UTIs, prostatitis, or any prior procedures. Weak stream - He reports a weak stream that started two months ago.Tamsulosin was recently initiated about two weeks ago. He reports improvement in his stream since starting this medication. He is uptwo times during the night urinating. He has a his last drink late in the evening. He consumes coffee in the morning and water during the day. He is taking oxybutynin once daily. He has a history of u rinary incontinence that has improved. Past Medical History: Diagnosis Date ??? Acute gastric ulcer without hemorrhage or perforation Ulcer, gastric, acute - (Added by TW Conv) ??? Asthma ??? Cataract ??? Closed fracture [...] of right knee as current injury ??? Depression Depression ??? Gastroesophageal reflux disease GERD ??? Osteoarthritis Osteoarthritis ??? Peptic ulcer Peptic ulcer disease ??? Personal history of diseases of skin or subcutaneous tissue History of rashes as a child - (Added by TW Conv) ??? Seizures (CMS/HCC) 1998 last seizure in 1997 ??? SOB (shortness of breath) on exertion ??? Subchondral insufficiency fracture of condyle of left femur (CMS/HCC) ??? Visual disturbance Vision changes - (Added by TW Conv) Past Surgical History: Procedure Laterality Date ??? CATARACT EXTRACTION, BILATERAL Bilateral 2018 ??? HERNIA REPAIR 1980 Hiatal Hernia repair ??? [place] ABDOMEN SURGERY PROC UNLISTED Hernia Repair - (Added by TW Conv) ??? THYROIDECTOMY 12/27/2019 Social History Tobacco Use ??? Smoking status: Former Smoker Types: Cigarettes Start date: 1965 Quit date: 1967 Years since quittin.9 ??? Smokeless tobacco: Never Used Substance Use Topics ??? Alcohol use: Yes Alcohol/week: 1.0 standard drinks Types: 1 Standard drinks or equivalent per week Family History Problem Relation Age of Onset ??? Heart failure Other Family history of Congestive heart failure; ??? Heart disease Other Family history of Heart disease; ??? Osteoarthritis Other Family history of Osteoarthritis; ??? Osteoporosis Other Family history of Osteoporosis; ??? Heart attack Mother ??? Heart attack Father ??? Heart attack Sister No Known Allergies Review of Systems: All other symptoms except HPI are negative Objective: Vitals: BP 153/83 Pulse 69 Temp (!) 35.9 ??C (96.6 ??F) Resp 17 Ht 180.3 cm (5' 11 ) Wt 98.9 kg (218 lb) BMI 30.40 kg/m?? Physical exam: General: does not appear in acute distress; no pain present Head: normocephalic/atraumatic Eyes: no discharge noted; (R,L) extraocular movements are intact; visual field normal Ears: (R,L) hearing grossly normal Nose/Mouth/Throat: mucous membranes moist Neck: neck inspection is normal; neck ROM normal Respiratory: has normal respiratory effort Extremities: (R,L) pink and warm Musculoskeletal: normal range of motion present Neurology: patient is alert and oriented to person, place and time. Mood: has normal mood and affect Lab/Radiology/Diagnostic Review: Reviewed. Results for orders placed or performed in visit on 09/10/20 POCT urinalysis dipstick Result Value Ref Range Color, Urine, POC Yellow Clarity, ur, POC Clear Clear Glucose, ur, POC Negative Negative mg/dL Ketones, ur, POC Negative Negative Blood, ur, POC Negative Negative pH, ur, POC 5.0 5.0 - 8.0 Protein, ur, POC Negative Negative Nitrite, ur, POC Negative Negative Leukocytes, ur, POC Negative Negative Lot Number x Assessment/renee Mr. Gtz is a 76 y.o. year old male referred for evaluation of erectile dysfunction. We discussed all the various treatment options including HERMILO, MUSE or injections. He has agreed to a trial of Cialis 20 mg. If not effective, then he can f/u in 2 - 3 months for review of the other options. He is aware of the option for penile prosthesis and he will call with his decision to proceed with surgery. Advised to follow up in the office in 1 year and p.r.n.He is aware of the option forpenile prosthesis and he will call with his decision to proceed with surgery. Advised to follow up in the office in 1 year and p.r.n. -Weak urinary stream - He elects to continue tamsulosin once daily. -Overactive bladder - He elects to continue oxybutynin once a day. SEAN [facility] Office [phone] 09/10/2020 3:22 PM Cosigned by Kong Mayfield MD at 09/13/2020 2:30 AM MANAGER VEHICLE GER VEHICLE GER VEHICLE documented in this encounter Plan of Treatment Upcoming Encounters Date Type Department Care Team (Latest Contact Info) Description 10/23/2024 10:00 AM MANAGER VEHICLE Hospital Encounter [facility] Operating Room [id number] [place] [address] [place] [address] [address] 10/23/2024 10:00 AM MANAGER VEHICLE - 10/23/2024 1:00 PM MANAGER VEHICLE Surgery [facility] Operating Room [id number] [place] [address] [place] [address] [id number] ARTHROPLASTY TOTAL KNEE LEFT Scheduled Procedures Name Priority Associated Diagnoses Date/Ti me ARTHROPLASTY TOTAL KNEE left knee osteoarthritis 10/23/2024 10:00 AM MANAGER VEHICLE ESOPHAGOGASTRODUODENOSCOPY Dysphagia, unspecified type documented as of this encounter Procedures Procedure Name Priority Date/Time Associated Diagnosis Comments POCT URINALYSIS DIPSTICK Routine 09/10/2020 2:48 PM MANAGER VEHICLE Screening for hematuria or proteinuria documented in this encounter Results * POCT urinalysis dipstick (09/10/2020 2:48 PM MANAGER VEHICLE) Color, Urine, POC Yellow Comment:` Clarity, ur, POC Clear Clear Glucose, ur, POC Negative Negative mg/dL Ketones, ur, POC Negative Negative Blood, ur, POC Negative Negative pH, ur, POC 5.0 5.0 - 8.0 Protein, ur, POC Negative Negative Nitrite, ur, POC Negative Negative Leukocytes, ur, POC Negative Negative Lot Number x Urine 09/10/2020 2:48 PM MANAGER VEHICLE Jessie Andrade GEOTECHNICAL OPERATING ENGINEER POINT OF CARE TEST ORDERABLES Final Result documented in this encounter Visit Diagnoses Diagnosis Erectile dysfunction, unspecified erectile dysfunction type- Primary Screening for hematuria or proteinuria Screening for unspecified condition Other urinary incontinence Weak urinary stream Slowing of urinary stream documented in this encounter Discontinued Medications Medication Sig Discontinue Reason Start Date End Da te temazepam (RESTORIL) 15 mg capsuleIndications:Inso mnia Take 15 mg by mouth nightly as needed for sleep 01/21/2018 09/10/2020 gabapentin (NEURONTIN) 300 mg capsuleIndications:Numb ness and tingling Take 1 to 2 capsules at bedtime Therapy completed 02/07/2020 09/10/2020 documented as of this encounter Historical Medications * This list may reflect changes made after this encounter. temazepam (RESTORIL) 30 mg capsule TK ONE C PO QHS PRN 09/04/2020 09/11/2021 added in this encounter Care Teams Rehab Nurse Relationship Specialty [place] [address] [place] [address] PCP - General 11/12/16 03/11/22 documented as of this encounter
--- OUTSIDE RECORDS SUMMARY | 2024-10-11 02:00 | XMS_ITS | Encounter Summary ---
Author Organization [facility] Address [address] [place] [address] Care Team Providers Care Acidity Tester Name Role Phone Santino Funk MD Primary Care Provider + Encounter Details Date Type Department Care Team (Latest Contact Info) Description 11/24/2021 10:28 AM ORDER PROCESSOR - 11/24/2021 11:59 PM ORDER PROCESSOR Hospital Encounter [facility] [address] [place], [place] [id number] Discharge Disposition: Discharge to home or self [...] relatives? Three times a week 11/25/2021 Attends [employer] Not on file 11/25 Active Member [...] on file Legal Sex Male 3:25 PM ORDER PROCESSOR Gender Identity Not on file Sexual Orientation [...] mg by mouth nightly acetaminophen 500 mg capsuleIndication s:Pain Take 2 capsules (1,000 mg total) by [...] mouth nightly 30 tablet 5 09/11/2021 2 HYDROcodone-aceta minophen (NORCO) 7.5-325 mg per tabletIndications :Pain Take 1 tablet by mouth every 8 (eight) hours as needed for pain 2 magnesium oxide (MAG-OX) 250 mg (150.8 mg elemental) tabletIndications :hypomagnesemia Take 1 tablet (250 mg total) by mouth nightly 4 omeprazole (PriLOSEC) 20 mg capsule take 1 capsule by oral route every day before a meal 0 0 10/21/2016 4 oxyCODONE-acetami nophen (PERCOCET) 10-325 mg per tabletIndications :Pain Take 1 tablet by mouth every 4 (four) hours as needed for pain 42 tablet 11/25/2021 2 oxyCODONE-acetami nophen (PERCOCET) 10-325 mg per tabletIndications :Pain Take 1 tablet by mouth every 4 (four) hours as needed for pain 42 tablet 11/26/2021 2 polyethylene glycol (MIRALAX) 17 gram packetIndications :constipation Take 1 packet (17 g total) by mouth daily as needed for constipation 4 senna-docusate (PERICOLACE) 8.6-50 mg Take 1 tablet by mouth nightly 4 senna-docusate (PERICOLACE) 8.6-50 mgIndications:con stipation Take 2 tablets by mouth 2 (two) times a day 60 tablet 2 11/25/2021 2 senna-docusate (PERICOLACE) 8.6-50 mgIndications:con stipation Take 2 [...] (Latest Contact Info) Description 10/23/2024 10:00 AM [facility] Hospital Encounter [facility] Operating Room [address] [place] [id number] [place] [address] [address] 10/23/2024 10:00 AM ORDER PROCESSOR - 10/23/2024 1:00 PM [facility] Surgery [facility] Operating Room [address] [place] [address] [place] [address] [address] ARTHROPLASTY TOTAL KNEE LEFT Scheduled Procedures Name Priority Associated Diagnoses Date/Ti me ARTHROPLASTY TOTAL KNEE left knee osteoarthritis 10/23/2024 10:00 AM ORDER PROCESSOR ESOPHAGOGASTRODUODENOSCOPY Dysphagia, unspecified type documented as of this encounter Procedures Procedure Name Priority Date/Time Associated Diagnosis Comments XR KNEE RIGHT 1 OR 2 VIEWS IP Routine 11/24/2021 10:40 AM ORDER PROCESSOR documented in this encounter Results * XR Knee Right 1 or 2 View (11/24/2021 10:40 AM ORDER PROCESSOR) Anatomical Region Laterality Modality Lower Extremities, Knee Right Computed Radiography 11/24/2021 10:5 9 AM ORDER PROCESSOR Impressions 11/24/2021 10:59 AM ORDER PROCESSOR Right total arthroplasty with components in good position. Electronically signed by: Cat Sandoval M.D. Narrative 11/24/2021 10:59 AM ORDER PROCESSOR EXAMINATION: XR KNEE RIGHT 1 OR 2 VIEWS HISTORY: The patient is a 76 year old male who has had a right total knee arthroplasty. TECHNIQUE: AP and lateral view of the right knee were obtained with portable technique. FINDINGS: There has been interval placement of a right total knee arthroplasty with components in good position. ??Radiopaque drain and metallic julius are seen overlying the operative site. Procedure Note Cat Sadnoval MD - 11/24/2021 EXAMINATION: XR KNEE RIGHT 1 OR 2 VIEWS HISTORY: The patient is a 76 year old male who has had a right total knee arthroplasty. TECHNIQUE: AP and lateral view of the right knee were obtained with portable technique. FINDINGS: There has been interval placement of a right total knee arthroplasty with components in good position. Radiopaque drain and metallic julius are seen overlying the operative site. IMPRESSION: Right total arthroplasty with components in good position. Electronically signed by: Cat Sandoval M.D. George Sepulveda MD IMG XR PROCEDURES Final R esult documented in this encounter Visit Diagnoses Not on filedocumented in this encounter Care Teams Acidity Tester Relationship Specialty [place] [address] [place] [address] PCP - General 11/12/16 03/11/22 documented as of this encounter
--- OUTSIDE RECORDS SUMMARY | 2024-10-11 02:00 | XMS_ITS | Encounter Summary ---
Author Organization [facility] Address [address] [place] [address] Care Team Providers Care It Instructor Name Role Phone Santino Funk MD Primary Care Provider + Reason for Visit * Reason Comments Alzheimer's Disease Encounter Details Date Type Department Care Team (Late st Contact Info) Description 08/26/2020 9:00 AM PATIENT CASE COORDINATOR Office Visit [facility] [id number] [place] [address] [address] [address] N[place], [place] [id number] [place] [address] [address] [address] Late onset Alzheimer's disease without behavioral disturbance (CMS/HCC) (Primary Dx); Muscle cramp; Restless leg syndrome; Benign paroxysmal positional vertigo, unspecified laterality; Numbness and tingling of left upper and lower extremity; Essential tremor Social History Tobacco Use Types Packs/Day Years Used Date Smoking Tobacco: Former Cigarettes 1 [phone] Smokeless Tobacco: Never Alcohol Use Standard Drinks/Week Comments Yes 1 (1 standard drink = 0.6 oz pur e alcohol) PHQ-2 Answer Date Recorded PHQ-2 Score 0 12/12/2018 Sex and Gender Information Value Date Recorded Sex Assigned at Not on file Legal Sex Male 3:25 PM PATIENT CASE COORDINATOR Gender Identity Not on file Sexual Orientation Not on file documented as of this encounter Last Filed Vital Signs Vital Sign Reading Time Taken Comments Blood Pressure 112/72 08/26/2020 9:00 AM PATIENT CASE COORDINATOR Pulse 72 08/26/2020 9:00 AM PATIENT CASE COORDINATOR Temperature - - Respiratory Rate 16 08/26/2020 9:00 AM PATIENT CASE COORDINATOR Oxygen Saturation - - Inhaled Oxygen Concentration - - Weight 99.7 kg (219 lb 14.5 oz) 08/26/2020 9:00 AM PATIENT CASE COORDINATOR Height 183.1 cm (6' 0.1 ) 08/26/2020 9:00 AM PATIENT CASE COORDINATOR Body Mass Index 29.74 08/26/2020 9:00 AM PATIENT CASE COORDINATOR documented in this encounter Ordered Prescriptions Prescription Sig Dispense Quantity Refills Last Filled Start Date End Date tiZANidine (ZANAFLEX) 2 mg tablet Take 2 tablets (4 mg total) by mouth nightly 1 to 2 tablets at bedtime 60 tablet 5 08/26/2020 1 donepeziL (ARICEPT) 10 mg tabletIndications: 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 male with dementia of the Alzheimer's type benign paroxysmal positional vertigo left-sided numbness and tingling restless leg syndrome and muscle cramps.. HPI The patient is seen today for re-evaluation and follow-up of his dementia of the Alzheimer's type. He is currently on donepezil 10 mg per day and he reports no progression of his condition. No side effects from donepezil is reported. He is independent in his self-care and gait. 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 Today he is complaining of muscle cramps he was started on pramipexole byhis primary care because he did complain of symptoms consistent with restless leg syndrome described as irresistible urge to move his legs but is also complaining of charley horse that is present throughout the day and worse at night. He puts up with the muscle cramping during the day but has difficulty sleeping at night and he has poor quality of sleep. His left-sided rasheed sensory loss is unchanged from previous he still has episodes of benign paroxysmal positional vertigo but the episodes of vertigo are not associated with any other symptoms referable to the posterior fossa. Review of Systems Constitutional: Negative for activity change, appetite change and fever. HENT: Negative for hearing loss, sore throat and tinnitus. Eyes: Negative for visual disturbance. Respiratory: Negative for cough and shortness of breath. Cardiovascular: Negative for chest pain and palpitations. Gastrointestinal: Negative for abdominal pain, constipation, diarrhea and nausea. Musculoskeletal: Negative for arthralgias and back pain. Neurological: Positive for dizziness and numbness. Negative for seizures, syncope, facial asymmetry, speech difficulty, weakness, [...] Strength is 5/5 throughout all four extremities. There is a very mild postural tremor of the outstretched hands with a grade of 1/4. Sensory Light touch is normal in upper and lower extremities. Pinprick is normal in upper and lower extremities. Reflexes Right Left Brachioradialis Tr Tr Biceps Tr Tr Triceps Tr Tr Patellar Tr Tr Achilles 0 0 Coordination [id number], rapid alternating movements and [id number] normal bilaterally without dysmetria. Gait Casual gait is normal including stance, stride, and arm swing. Physical Exam Vitals signs reviewed. Constitutional: General: He is awake. Appearance: Normal appearance. He is well-developed. HENT: Head: Normocephalic and atraumatic. Eyes: General: Lids are normal. Extraocular Movements: Extraocular movements intact. Conjunctiva/sclera: Conjunctivae normal. Pupils: Pupils are equal, round, and reactive to light. Neck: Musculoskeletal: Normal range of motion. Cardiovascular: Rate and Rhythm: Normal rate and regular rhythm. Pulmonary: Effort: Pulmonary effort is normal. Abdominal: Palpations: Abdomen is soft. Musculoskeletal: Normal range of motion. Skin: General: Skin is warm. Neurological: Mental Status: He is alert. Coordination: Coordination is intact. Deep Tendon Reflexes: Strength normal. Reflex Scores: Achilles reflexes are 0 on the right side and 0 on the left side. Psychiatric: Speech: Speech normal. Assessment/Plan: 1. Dementia of the Alzheimer's type the condition has not progressed continue with donepezil 10 mg per day and monitor for worsening of memory loss. 2. Essential tremor this is a new diagnosis this does not require treatment at this time monitor for worsening. 3. Muscle cramps is a new complaint I will start him on Zanaflex 2 mg tablets 1- 2 tablets at bedtime. 4. Restless leg syndrome continue with pramipexole I did discussed potential symptoms of compulsivebehavior with this medication such as compulsive gambling compulsive shopping. He will monitor for these symptoms. 5. Benign proximal positional vertigo this is still an issue but it comes and goes he was encouraged to do his exercises for benign paroxysmal positional vertigo. 6. Left sided numbness today he complains of increased sensitivity to pinprick of the left side of the body. She will be seen for a follow-up in 6 months. Medications Current Outpatient Medications: ??? acetaminophen 500 mg capsule, Take 2 capsules (1,000 mg total) by mouth every 6 (six) hours, Disp: 30 tablet, Rfl: 1 ??? aspirin-sodium bicarbonate-citric acid (ELIUD-SELTZER) 324 mg tablet, effervescent, Take 325 mg by mouth daily as needed (upset stomach), Disp: , Rfl: ??? cholecalciferol (VITAMIN D-3) 2000 unit capsule, Take 1 capsule (2,000 Units total) by mouth daily, Disp: 30 capsule, Rfl: 3 ??? donepeziL (ARICEPT) 10 mg tablet, Take 1 tablet (10 mg total) by mouth nightly, Disp: 30 tablet, Rfl: 5 ??? HYDROcodone-acetaminophen (NORCO) 7.5-325 mg per tablet, Take 1 tablet by mouth every 6 (six) hours as needed for pain, Disp: , Rfl: ??? levothyroxine (SYNTHROID) 125 mcg tablet, Take 125 mcg by mouth early childhood director before breakfast,Disp: , Rfl: ??? omeprazole (PriLOSEC) 20 mg capsule, take 1 capsule by oral route every day before a meal (Patient taking differently: Take 20 mg by mouth 2 (two) times a day ), Disp: 0, Rfl: 0 ??? oxybutynin XL (DITROPAN-XL) 5 mg 24 hr tablet, Take 5 mg by mouth 3 (three) times a day, Disp: , Rfl: ??? oxyCODONE (ROXICODONE) 5 mg immediate release tablet, Take 1 tablet (5 mg total) by mouth every4 (four) hours as needed for pain, Disp: 20 tablet, Rfl: 0 ??? pramipexole (MIRAPEX) 0.125 mg tablet, 1-2 tablet nightly, Disp: , Rfl: ??? sildenafil, antihypertensive, (REVATIO) 20 mg tablet, Take 20 mg by mouth daily as needed , Disp: , Rfl: 5 ??? tamsulosin (FLOMAX) 0.4 mg extended release capsule, TK 1 C PO QD, Disp: , Rfl: ??? temazepam (RESTORIL) 15 mg capsule, Take 15 mg by mouth nightly as needed for sleep , Disp: , Rfl: ??? triamcinolone (KENALOG) 0.1 % cream, APPLY TID ON THE SKIN PRN, Disp: , Rfl: ??? turmeric root extract 500 mg capsule, Take by mouth, Disp: , Rfl: ??? UNABLE TO FIND, Take 1 each by mouth daily as needed Z Quil cough syrup, Disp: , Rfl: ??? bismuth subsalicylate (PEPTO-BISMOL) suspension, Take 15 mL by mouth every 6 (six) hours as needed for indigestion, Disp: , Rfl: ??? calcium carbonate (OS-KAREN) 1,250 MG (500 mg of elemental calcium) tablet, Take 1 tablet (1,250 mg total) by mouth 3 (three) times a day (Patient not taking: Reported on 08/26/2020), Disp: 90 tablet, Rfl: 1 ??? docusate sodium (COLACE) 100 mg capsule, Take 1 capsule (100 mg total) by mouth 2 (two) times aday. (Patient not taking: Reported on 08/26/2020), Disp: 30 capsule, Rfl: 0 ??? gabapentin (NEURONTIN) 300 mg capsule, Take 1 to 2 capsules at bedtime, Disp: 90 capsule, Rfl: 2 ??? guaifenesin/pseudoephedrne HCl (MUCINEX D MAXIMUM STRENGTH ORAL), Take 15 mL by mouth daily as needed, Disp: , Rfl: ??? polyethylene glycol (MIRALAX) 17 gram/dose powder, Mix 1 scoop (17 g) in 8 oz of water and drink daily. (Patient not taking: Reported on 08/26/2020), Disp: 85 g, Rfl: 0 ??? Ventolin HFA 90 mcg/actuation inhaler, Inhale 2 puffs every 4 (four) hours as needed for wheezing , Disp: , Rfl: History Family History Problem [...] Diagnosis Date Noted ??? Primary osteoarthritis of left knee 08/08/2018 ??? Subchondral insufficiency fracture of condyle of left femur (CMS/HCC) 08/30/2018 ??? Closed fracture of left tibial [...] 03/08/2018 ??? Skin lesion of breast 02/01/2018 Resolved Ambulatory Problems Diagnosis Date Noted ??? No Resolved Ambulatory Problems Past Medical History: Diagnosis Date ??? Acute gastric ulcer without hemorrhage or perforation ??? Asthma ??? Cataract ??? Depression ??? Gastroesophageal reflux disease ??? Osteoarthritis ??? Peptic ulcer ??? Personal history of diseases of skin or subcutaneous tissue ??? Seizures (CMS/HCC) 1997 ??? SOB (shortness of breath) on exertion ??? Visual disturbance Social History Socioeconomic History ??? Marital status: Spouse name: Not on file ??? Number of children: Not on file ??? Years of education: Not on file ??? Highest education level: Not on file Occupational History ??? Not on file Social Needs ??? Financial resource strain: Not on file ??? Food insecurity Worry: Not on file Inability: Not on file ??? Transportation needs Medical: Not on file Non-medical: Not on file Tobacco Use ??? Smoking status: Former Smoker Types: Cigarettes Start date: 1965 Quit date: 1966 Years since quittin.9 ??? Smokeless tobacco: Never Used Substance and Sexual Activity ??? Alcohol use: Yes Alcohol/week: 1.0 standard drinks Types: 1 Standard drinks or equivalent per week ??? Drug use: No ??? Sexual activity: Not on file Lifestyle ??? Physical activity Days per week: Not on file Minutes per session: Not on file ??? Stress: Not on file Relationships ??? Social connections Talks on phone: Not on file Gets together: Not on file Attends yazidi service: Not on file Active member of club or organization: Not on file Attends meetings of clubs or organizations: Not on file Relationship status: Not on file ??? Intimate partner violence Fear of current or ex partner: Not on file Emotionally abused: Not on file Physically abused: Not on file Forced sexual activity: Not on file Other Topics Concern ??? Not on file Social History Narrative Caffeine use : (Added by TW Conv) Consumes alcohol : (Added by TW Conv) ENT CASE COORDINATOR documented in this encounter Plan of Treatment Upcoming Encounters Date Type Department Care Team (Latest Contact Info) Description 10/23/2024 10:00 AM PATIENT CASE COORDINATOR Hospital Encounter [facility] [id number] [place] [id number] [place] [id number] [address] 10/23/2024 10:00 AM PATIENT CASE COORDINATOR - 10/23/2024 1:00 PM PATIENT CASE COORDINATOR Surgery [facility] [id number] [place] [id number] [place] [id number] [id number] ARTHROPLASTY TOTAL KNEE LEFT Scheduled Procedures Name Priority Associated Diagnoses Date/Ti me ARTHROPLASTY TOTAL KNEE left knee osteoarthritis 10/23/2024 10:00 AM PATIENT CASE COORDINATOR ESOPHAGOGASTRODUODENOSCOPY Dysphagia, unspecified type documented as of this encounter Visit Diagnoses Diagnosis 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)- Primary Muscle cramp Cramp of limb Restless leg syndrome Restless legs syndrome (RLS) Benign paroxysmal positional vertigo, unspecified laterality Numbness and tingling of left upper and lower extremity Essential tremor documented in this encounter Discontinued Medications Medication Sig Discontinue Reason Start Date End Da te levothyroxine (SYNTHROID) 150 mcg tablet Take 1 tablet (150 mcg total) by mouth early childhood director before breakfast Dose adjustment 12/31/2019 08/26/2020 donepeziL (ARICEPT) 10 mg tabletIndications: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 turmeric root extract 500 mg capsule Take 1,000 mg by mouth nightly oxybutynin XL (DITROPAN-XL) 5 mg 24 hr tablet Take 10 mg by mouth 3 (three) times a day 2 levothyroxine (SYNTHROID) 125 mcg tablet Take 150 mcg by mouth early childhood director before breakfast 2 HYDROcodone-acet aminophen (NORCO) 7.5-325 mg per tabletIndication s:Pain Take 1 tablet by mouth every 8 (eight) hours as needed for pain 2 pramipexole (MIRAPEX) 0.125 mg tablet 1-2 tablet nightly 1 added in this encounter Care Teams It Instructor Relationship Specialty [place] [id number] [address] [address] [place] [address] PCP - General 11/12/16 03/11/22 documented as of this encounter
--- OUTSIDE RECORDS SUMMARY | 2024-10-11 02:00 | XMS_ITS | Encounter Summary ---
Author Organization [facility] Healthcare Address [address] [place] [address] Care Team Providers Care Casting And Locker Room Servicer Name Role Phone Santino Funk MD Primary Care Provider + Encounter Details Date Type Department Care Team (Latest Contact Info) Description 11/24/2021 6:03 AM SYSTEMS ENGINEERING MANAGER - 11/26/2021 3:53 PM SYSTEMS ENGINEERING MANAGER Hospital Encounter [facility] [id number] [place] [address] George Sepulveda MD [address] [place] [id number] Primary osteoarthritis of both knees Discharge Disposition: Discharge to home, home health [...] on file Legal Sex Male 3:25 PM SYSTEMS ENGINEERING MANAGER Gender Identity Not on file Sexual Orientation Not on file documented as of this encounter Last Filed Vital Signs Vital Sign Reading Time Taken Comments Blood Pressure 152/73 11/26/2021 8:15 AM SYSTEMS ENGINEERING MANAGER Pulse 59 11/26/2021 8:15 AM SYSTEMS ENGINEERING MANAGER Temperature 36.7 ??C (98.1 ??F) 11/26/2021 8:15 AM CS T Respiratory Rate 20 11/26/2021 8:15 AM SYSTEMS ENGINEERING MANAGER Oxygen Saturation 98% 11/26/2021 8:15 AM SYSTEMS ENGINEERING MANAGER Inhaled Oxygen Concentration - - Weight 95.3 kg (210 lb) 11/26/2021 9:04 AM SYSTEMS ENGINEERING MANAGER Height 180.3 cm (5' 11 ) 11/24/2021 7:32 AM SYSTEMS ENGINEERING MANAGER Body Mass Index 29.29 11/24/2021 7:32 AM SYSTEMS ENGINEERING MANAGER documented in this encounter Discharge Diagnoses Diagnosis Bilateral primary osteoarthritis of knee - BILATERAL PRIMARY OSTEOARTHRITIS OF KNEE Dementia in other diseases classified elsewhere without behavioral disturbance - DEMENTIA IN OTHER DISEASES CLASSIFIED ELSEWHERE WITHOUT BEHAVIORAL DISTURBANCE (MANIFESTATION) Alzheimer's disease, unspecified (CODE) (HCC) - ALZHEIMER'S DISEASE, UNSPECIFIED Unspecified asthma, uncomplicated - UNSPECIFIED ASTHMA, UNCOMPLICATED Gastro-esophageal reflux disease without esophagitis - GASTRO-ESOPHAGEAL REFLUX DISEASE WITHOUT ESOPHAGITIS Cataract extraction status, left eye - CATARACT EXTRACTION STATUS, LEFT EYE Cataract extraction status, right eye - CATARACT EXTRACTION STATUS, RIGHT EYE 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 Constipation, unspecified - CONSTIPATION, UNSPECIFIED Depression, unspecified - DEPRESSION, UNSPECIFIED Benign prostatic hyperplasia with lower urinary tract symptoms - BENIGN PROSTATIC HYPERPLASIA WITH LOWER URINARY TRACT SYMPTOMS Other retention of urine - OTHER RETENTION OF URINE Personal history of peptic ulcer disease - PERSONAL HISTORY OF PEPTIC ULCER DISEASE Personal history of nicotine dependence - PERSONAL HISTORY OF NICOTINE DEPENDENCE Other senior care (current) drug therapy - OTHER SENIOR LIVING (CURRENT) DRUG THERAPY documented in this encounter Discharge Summaries * Jossie Montalvo PA - 11/26/2021 3:12 PM CST Inpatient Discharge Summary BRIEF OVERVIEW Admitting Provider: George Sepulveda MD Discharge Provider: George Sepulveda MD Primary Care Physician at Discharge: Santino Funk MD [phone] Admission Date: 11/24/2021 Discharge Date: 11/26/2021 Admission Location: [facility] Problems/Diagnoses: Principal Problem: Primary osteoarthritis of both knees Resolved Problems: No resolved hospital problems. DETAILS OF HOSPITAL STAY Presenting Problem/History of Present Illness: This is a 76-year-old male who had end-stage osteoarthritis affecting right knee. Conservative measures such as injection, physical therapy, ice, stretching, ambulatory assist device or no longer effective. X-rays demonstrate severe osteoarthritis of the right knee. After a discussion of care altern atives, the patient agrees to proceed with total joint replacement. Risks and benefits of the procedure were discussed prior to admission. Hospital Course: The patient underwent total joint replacement on the above date. Procedures well tolerated with no complications noted at the time of surgery. Patient was afebrile and hemodynamically stable throughout the hospitalization. The patient began physical therapy the 1st postoperative day and progressed well with that. Oral medication and diet was well tolerated, did have issues with urinary retention requiring straight catheterization, was seen by Urology and medication recommendations were made. This issue improved prior to discharge. The patient was discharged home in good condition with home health. Hemovac drain removed without difficulty prior to discharge. Active Issues Requiring Follow-up: None Test Results Pending at Discharge: Pending Labs Order Current Status Surgical pathology In process Operative Procedures Performed: Procedure(s): ARTHROPLASTY TOTAL RIGHT KNEE, LEFT KNEE INJECTION Other Procedures: None Pertinent Test Results: None Discharge Details Physical Exam at Discharge: Discharge Condition: stable Pulse: 59 Resp: 20 BP: 152/73 Temp: 36.7 ??C (98.1 ??F) Weight: 95.3 kg (210 lb) Pertinent Exam Findings at Discharge: Alert orient x3, surgical dressing clean, dry and intact. Able to flex extend toes with no weakness in EHL or ankle dorsiflexion. Calf nontender with a negative Terry sign. Sensory exam within normal limits, 2+ dorsalis pedis pulse. Discharge Disposition: Code Status at Discharge: Full Discharge Instructions: Other Instructions Ambulatory referral to Home Health Service Line: Home Health Primary disciplines requested: Physical Therapy Secondary disciplines requested: Occupational Therapy Home Health Services: Strengthening Exercises Strengenthing/ Balance Evaluate Therapy to Eval/ Treat Physician to follow patient's care (the person listed here will be responsible for signing ongoing orders): Referring Provider Requested Start of Care Date: Within 2 - 3 Days I attest that I or another qualified licensed provider saw the patient 90 days prior to or 30 days post admission and this face to face encounter meets the necessary Home Health requirements. The face to face encounter occurred on (date): 11/25/2021 The encounter with the patient was in whole, or in part, for the following medical condition, whichis the primary reason for home health care. (List medical condition): TKA I certify that, based on my findings, the following services are medically necessary skilled home health services: Wound/ Ostomy Care Therapy to Eval/ Treat Clinical findings that support the need for home care: Medical condition requiring skilled assessment/education I certify that my clinical findings support patient's homebound status. Homebound criteria met because: Poor endurance Pain and impaired mobility post-op Walker Height: 180.3 cm (5' 11 ) Weight: 95.3 kg (210 lb) Type: Adult (163-188 cm tall) Bariatric (>300#): No Rollator: No Platform: No Wheels: Front Wheeled Wheel size: 5 Patient has mobility limitation requiring use and patient is able to use walker; and functional mobility deficit is resolved by use of walker?: Yes DME services provided by: [facility] Discharge Medications: Current Medications TAKE these medications aspirin 325 mg tablet Take 1 tablet (325 mg total) by mouth 2 (two) times a day cholecalciferol 2000 unit capsule Take 1 capsule (2,000 Units total) by mouth daily Commonly known as: VITAMIN D-3 donepeziL 10 mg tablet Take 1 tablet (10 mg total) by mouth nightly Commonly known as: ARICEPT levothyroxine 150 mcg tablet Take 150 mcg by mouth daily Commonly known as: SYNTHROID magnesium oxide 250 mg (150.8 mg elemental) tablet Take 250 mg by mouth nightly For: low amount of magnesium in the blood Commonly known as: MAG-OX omeprazole 20 mg capsule take 1 capsule by oral route every day before a meal Commonly known as: PriLOSEC oxybutynin XL 10 mg 24 hr tablet Take 10 mg by mouth nightly Commonly known as: DITROPAN-XL oxyCODONE-acetaminophen 10-325 mg per tablet Take 1 tablet by mouth every 4 (four) hours as needed for pain For: pain Commonly known as: PERCOCET polyethylene glycol 17 gram packet Take 17 g by mouth daily as needed for constipation For: constipation Commonly known as: MIRALAX * senna-docusate 8.6-50 mg Take 1 tablet by mouth nightly Commonly known as: PERICOLACE * senna-docusate 8.6-50 mg Take 2 tablets by mouth 2 (two) times a day For: constipation Commonly known as: PERICOLACE tamsulosin 0.4 mg extended release capsule Take 0.4 mg by mouth nightly Commonly known as: FLOMAX tiZANidine 2 mg tablet Take 2 tablets (4 mg total) by mouth nightly 1 to 2 tablets at bedtime Commonly known as: ZANAFLEX traZODone 50 mg tablet Take by mouth nightly 1/2 to 1 tablet Commonly known as: DESYREL turmeric root extract 500 mg capsule Take 1,000 mg by mouth nightly UNABLE TO FIND Take 1 each by mouth nightly Med Name: muscle cramp pain reliever Patient takes 3 different OTC homeopathic muscle cramp medications * This list has 2 medication(s) that are the same as other medications prescribed for you. Read the directions carefully, and ask your doctor or other care provider to review them with you. Outpatient Follow-Up: Future Appointments Date Time Provider Department Center 11/28/2021 10:40 AM Jessie Andrade NP [facility] 12/09/2021 10:00 AM Jossie Montalvo PA [facility] 12/17/2021 1:40 PM Kong Mayfield MD [facility] BA 03/12/2022 10:30 AM Nayan Mahajan II, MD [facility] Cosigned by George Sepulveda MD at 11/26/2021 4:08 PM SYSTEMS ENGINEERING MANAGER EMS ENGINEERING MANAGER EMS ENGINEERING MANAGER documented in this encounter Discharge Instructions * Appointments* Nalini Dunham RN - 11/26/2021 3:04 PM SYSTEMS ENGINEERING MANAGER [facility] has been set up with [facility] [place] [phone]. They will be contacting you regarding initial visit. EMS ENGINEERING MANAGER documented in this encounter Medications at Time [...] Refills Last Filled Start Date End Date senna-docusate (PERICOLACE) 8.6-50 mgIndications:cons tipation Take 2 tablets by mouth 2 (two) times a day 60 tablet 2 11/26/2021 3 oxyCODONE-acetamin ophen (PERCOCET) 10-325 mg per tabletIndications: Pain Take 1 tablet by mouth every 4 (four) hours as needed for pain 42 tablet 11/26/2021 2 aspirin 325 mg tablet Take 1 tablet (325 mg total) by mouth 2 (two) times a day 60 tablet 1 11/26/2021 2 aspirin 325 mg tablet Take 1 tablet (325 mg total) by mouth 2 (two) times a day 60 tablet 1 11/25/2021 2 oxyCODONE-acetamin ophen (PERCOCET) 10-325 mg per tabletIndications: Pain Take 1 tablet by mouth every 4 (four) hours as needed for pain 42 tablet 11/25/2021 2 senna-docusate (PERICOLACE) 8.6-50 mgIndications:cons tipation Take 2 tablets by mouth 2 (two) times a day 60 tablet 2 11/25/2021 2 documented in this encounter Discharge Disposition Disposition Code Departure Means Destination Discharge to home, home health skilled care documented in this encounter Progress Notes * Michelle Carrasco, CERAMIST - 11/26/2021 1:10 PM CST Physical Therapy PT PROGRESS NOTE Gunjan Gtz Jr. 76 y.o. 1945 Past Medical History: Diagnosis Date ??? Acute gastric ulcer without hemorrhage or perforation Ulcer, gastric, acute - (Added by TW Conv) ??? Alzheimer's dementia (HCC) ??? Asthma ??? Cataract ??? Closed fracture [...] Peptic ulcer disease ??? Seizures (CMS/HCC) ([facility]) 1998 last seizure in 1997 ??? SOB (shortness of breath) on exertion ??? Subchondral insufficiency fracture of condyle of left femur (CMS/HCC) ([facility]) ??? Vertigo ??? Visual disturbance hx of double vision, corrective lenses Past Surgical History: Procedure Laterality Date ??? CATARACT EXTRACTION, BILATERAL Bilateral 2017 ??? HERNIA REPAIR 1980 Hiatal Hernia repair ??? KNEE ARTHROSCOPY Bilateral ??? THYROIDECTOMY 12/27/2019 Patient Active Problem List Diagnosis ??? Primary osteoarthritis of both knees ??? Subchondral insufficiency fracture of condyle of left femur (CMS/HCC) ([facility]) ??? Closed fracture of left tibial plateau [...] right eye ??? Skin lesion of breast TIME IN: 1310 TIME OUT: 1335 SUBJECTIVE I am feeling better MENTAL STATUS/ORIENTATION: Alert and oriented x4 PAIN: Pre-therapy pain level: 4/10 Pain location: right knee Pain intervention: therapeutic exercises Post-therapy pain level/response to intervention: unchanged OBJECTIVE PRECAUTIONS: fall risk, WBAT R LE APPEARANCE/POSTURE: supine, pj set, iceman on R LE, socks on, pt agreeable to therapy MOBILITY DOCUMENTATION: Bed Mobility/Transfers: supine to sit CGA with increased time, sit to/from stand CGA with w/w Gait: pt ambulated 150' with w/w CGA, Deviations include step to gait progressing to step through, flexed trunk, slow gertrudis, decreased step length Stairs: pt completed 1 step with w/w CGA ascending and descending TREATMENT: nt APPEARANCE/POSTURE (end of session): upright in recliner, legs elevated, alarm not active, call light in reach, verbal handoff to RN Meagan EDUCATION: Transfers, gait, stairs RESPONSE TO EDUCATION: demonstrated understanding ASSESSMENT Activity tolerance/response to P.T.: pt emil therapy with decreased pain this session and increasingindependence Barriers to learning: Physical Barriers to discharge: Decreased endurance, Lower extremity weakness and Stairs at home Patient continues progressing toward previously set goals which remain appropriate at this time. PLAN Patient to be seen for P.T. 2 times per day to address previously established deficits and goals. DISCHARGE LOCATION RECOMMENDATIONS: HOME with family/ Home health PT If this is the last note, please consider this the discharge summary. Cosigned by Isabella Moya, PT at 11/27/2021 8:44 AM SYSTEMS ENGINEERING MANAGER EMS ENGINEERING MANAGER EMS ENGINEERING MANAGER * Ap Pang COTA - 11/26/2021 10:34 AM CST Occupational Therapy NOTE / SESSION TYPE: DAILY PROGRESS / TREATMENT Patient's Name: Gunjan Gtz Jr. Age / Sex: 76 y.o. / male Room: [place] [id number] : 1945 Date of service: 11/26/21 TIME IN: 10:34 TIME OUT: 11:35 Patient Active Problem List Diagnosis ??? Primary osteoarthritis of both knees ??? Subchondral insufficiency fracture of condyle of left femur (CMS/HCC) (HCC) ??? Closed fracture of left tibial plateau [...] by TW Conv) ??? Alzheimer's dementia ([facility]) ??? Asthma ??? Cataract ??? Closed fracture [...] Peptic ulcer disease ??? Seizures (CMS/HCC) ([facility]) 1998 last seizure in 1997 ??? SOB (shortness of breath) on exertion ??? Subchondral insufficiency fracture of condyle of left femur (CMS/HCC) ([facility]) ??? Vertigo ??? Visual disturbance hx of double vision, corrective lenses Past Surgical History: Procedure Laterality Date ??? CATARACT EXTRACTION, BILATERAL Bilateral 2017 ??? HERNIA REPAIR 1980 Hiatal Hernia repair ??? KNEE ARTHROSCOPY Bilateral ??? THYROIDECTOMY 12/27/2019 Precautions (including weight-bearing): Fall risk, Bed / chair alarm and WBAT right LE, wound vac to right knee Subjective: Patient states that he is in a lot of pain. RN contacted. Therapy Pain: Pre-therapy pain level: 10 /10 Pain location: RLE Pain Intervention(s): RN administered pain medication during session Post-therapy pain level: 7 /10 Pain scale reference: 0-10 SCALE Objective: Appearance: Presentation upon OT arrival: Patient Supine with head of bed elevated Presentation upon OT departure: Patient Supine with head of bed elevated Bed / Chair alarm in place and activated upon OT departure: not in use upon arrival, RN aware Call light within arms reach of patient at end of session: Yes Completed patient handoff and notified CARDIOLOGY CLINICAL CONSULTANT / RN, name: Meagan, of patient's location and functional status upon completion of session Cognitive / Perceptual: Followed all commands without difficulty. Mobility / Transfers: Bed Mobility: SPV supine to/from sit using gait belt as leg facility engineer to assist with RLE Transfer(s): CGA sit to/from stand from EOB with wheeled walker and MIN verbal cues for hand placement CAR TRANSFER LOCATION: CAR SIMULATOR SET AT HEIGHT OF 20 INCHES PER PATIENT'S HOME VEHICLE OVERALL ASSIST LEVEL: INCIDENTAL TOUCHING ASSISTANCE DEVICE: WHEELED WALKER ADDITIONAL DOCUMENTATION: using leg facility engineer to assist with RLE with increased time Patient verbalized good understanding of shower transfer technique to shower bench with DME education and pricing options at his local [facility]. Did not attempt transfer at this time due to pain. Living Skills / Other Activities: Patient completed urination in standing at standard toilet using wheeled walker for balance as needed with SPV assist. Caregiver Present: No Education & Training Provided: Compensatory ADL strategies, Functional transfer training and Safety education Assessment: Activity tolerance / response to OT session: GOOD PARTICIPATION and INCREASED TIME FOR TASK COMPLETION SECONDARY TO due to pain Progress towards goals: Please refer to care plan from this date for progress towards individual goals Plan: Therapy Plan: Rehab Potential (Prognosis): good OT Recommendations This Date: Location: Home with family Supervision: 24 HR supervision Follow-up Therapy Recommendations: HHOT OT Consultation in Regards to Discharge Recommendations: N/A Frequency of therapy: 3-5 times / week If this is the last note, consider this the discharge summary ANGI Rodriguez 11/26/21 11:43 AM Cosigned by Winifred Boyce OT at 11/27/2021 3:03 PM SYSTEMS ENGINEERING MANAGER EMS ENGINEERING MANAGER EMS ENGINEERING MANAGER * Michelle Carrasco, CERAMIST - 11/26/2021 9:10 AM CST Physical Therapy PT PROGRESS NOTE Gunjan Gtz Jr. 76 y.o. 1945 Past Medical History: Diagnosis Date ??? Acute gastric ulcer without hemorrhage or perforation Ulcer, gastric, acute - (Added by TW Conv) ??? Alzheimer's dementia (HCC) ??? Asthma ??? Cataract ??? Closed fracture [...] Peptic ulcer disease ??? Seizures (CMS/HCC) ([facility]) 1998 last seizure in 1997 ??? SOB (shortness of breath) on exertion ??? Subchondral insufficiency fracture of condyle of left femur (CMS/HCC) ([facility]) ??? Vertigo ??? Visual disturbance hx of double vision, corrective lenses Past Surgical History: Procedure Laterality Date ??? CATARACT EXTRACTION, BILATERAL Bilateral 2017 ??? HERNIA REPAIR 1980 Hiatal Hernia repair ??? KNEE ARTHROSCOPY Bilateral ??? THYROIDECTOMY 12/27/2019 Patient Active Problem List Diagnosis ??? Primary osteoarthritis of both knees ??? Subchondral insufficiency fracture of condyle of left femur (CMS/HCC) ([facility]) ??? Closed fracture of left tibial plateau [...] right eye ??? Skin lesion of breast TIME IN: 910 TIME OUT: 957 SUBJECTIVE I have to use the bathroom MENTAL STATUS/ORIENTATION: Alert and oriented x4 PAIN: Pre-therapy pain level: 0/10 Pain location: n/a Pain intervention: n/a Post-therapy pain level/response to intervention: 06/20 R knee OBJECTIVE PRECAUTIONS: fall risk, WBAT R LE APPEARANCE/POSTURE: sitting EOB, pj set, socks, wound vac R LE, pt agreeable to therapy MOBILITY DOCUMENTATION: Bed Mobility/Transfers: sit to/from stand CGA with w/w, sit to supine min assist for LE Gait: pt ambulated to/and from bathroom and hallway, 60' with w/w CGA, Deviations include antalgic gait, step to gait, decreased gertrudis with further ambulation, fatigues easily, TREATMENT: Supine TKA exercises 10 reps each SBA for ankle pumps, quad sets, glute sets, max assist for SLR, SAQ and heel slides APPEARANCE/POSTURE (end of session): supine, HOB elevated, iceman donned, call light in reach, alarm not active, verbal handoff to RN Meagan EDUCATION: HEP, gait, bed mobility RESPONSE TO EDUCATION: demonstrated understanding ASSESSMENT Activity tolerance/response to P.T.: pt emil therapy with good motivation and participation, pt painincreased after therapy session and requires assistance for transfers Barriers to learning: Physical Barriers to discharge: Decreased endurance, Lower extremity weakness and Stairs at home Patient continues progressing toward previously set goals which remain appropriate at this time. PLAN Patient to be seen for P.T. 2 times per day to address previously established deficits and goals. DISCHARGE LOCATION RECOMMENDATIONS: HOME with family/home health PT If this is the last note, please consider this the discharge summary. Cosigned by Isabella Moya, PT at 11/27/2021 8:46 AM SYSTEMS ENGINEERING MANAGER EMS ENGINEERING MANAGER EMS ENGINEERING MANAGER EMS ENGINEERING MANAGER * Norma Park PA - 11/26/2021 8:54 AM CST Orthopedic Daily Progress Subjective Chief complaint of right total knee. Interval History: Postop day 1 right total knee arthroplasty performed on 11/24/[address] Sepulveda. Patient reports he is continuing to do well. He has noticed improvement of his urinary retention and is not urinating frequently. Urology on board and will follow up with him outpatient on Wednesday, 11/28. He denies any N/V the last day and has been eating well. Pain continues to be well controlled with medications. He is working well with therapy. Post-op Day: 1 Day Post-Op Procedure: Procedure(s): ARTHROPLASTY TOTAL RIGHT KNEE, LEFT KNEE INJECTION Objective Vitals: 24hr Min/Max: Temp Min: 36.7 ??C (98.1 ??F) Max: 36.9 ??C (98.4 ??F) Pulse Min: 59 Max: 89 BP Min: 144/68 Max: 166/78 Resp Min: 20 Max: 20 SpO2 Min: 98 % Max: 99 % Most Recent : Vitals: 11/25/21 0900 11/25/21 1500 11/25/21 2350 11/26/21 0815 BP: 158/75 144/68 166/78 152/73 BP Location: Right arm Right arm Right arm Right arm Patient Position: Lying Lying Lying Pulse: 89 88 81 59 Resp: 20 20 20 20 Temp: 36.8 ??C (98.3 ??F) 36.8 ??C (98.3 ??F) 36.9 ??C (98.4 ??F) 36.7 ??C (98.1 ??F) TempSrc: Oral Oral Oral Oral SpO2: 99% 98% 98% 98% Weight: Height: I/O last 2 completed shifts: In: - Out: 600 [Urine:600] Physical Exam: Prevena dressing is clean, dry and sealed. Able to flex extend toes, 5/5 strength in EHL. Sensationis intact in all dermatomes. Gives a good quad set and can initiate a straight leg raise. Lab/Radiology/Diagnostic Review: Recent Results (from the past 24 hour(s)) Basic metabolic panel Collection Time: 11/25/21 10:15 AM Result Value Ref Range Sodium 140 135 - 145 mmol/L Potassium, pl 4.4 3.3 - 4.9 mmol/L Chloride 105 97 - 110 mmol/L CO2 24 22 - 32 mmol/L Anion gap 11 2 - 15 mmol/L BUN 18 8 - 25 mg/dL Creatinine 1.18 0.80 - 1.30 mg/dL Glucose 144 70 - 199 mg/dL Calcium 8.6 8.5 - 10.3 mg/dL CBC with auto differential Collection Time: 11/25/21 10:15 AM Result Value Ref Range WBC 12.3 (H) 3.8 - 9.9 K/cumm Hgb 13.8 13.0 - 17.5 g/dL Hct 41.2 38.9 - 50.3 % Plt 194 150 - 400 K/cumm MPV 10.2 9.1 - 12.3 fL RBC 4.03 (L) 4.30 - 5.80 M/cumm MCV 102.2 (H) 81.3 - 96.4 fL MCH 34.2 (H) 27.1 - 33.3 pg MCHC 33.5 32.3 - 35.7 g/dL RDW CV 12.4 11.1 - 14.9 % RDW SD 47.6 35.7 - 48.1 fL NRBC abs 0.00 0.00 - 0.01 K/cumm Differential, auto Collection Time: 11/25/21 10:15 AM Result Value Ref Range Neutrophil abs 9.2 (H) 1.7 - 6.5 K/cumm Imm gran abs 0.1 0.0 - 0.1 K/cumm Lymphocyte abs 1.7 0.8 - 3.3 K/cumm Monocyte abs 1.3 (H) 0.2 - 0.8 K/cumm Eosinophil abs 0.0 0.0 - 0.5 K/cumm Basophil abs 0.0 0.0 - 0.1 K/cumm Neutrophil pct 74.7 % Imm gran pct 0.5 % Lymphocyte pct 13.7 % Monocyte pct 10.7 % Eosinophil pct 0.2 % Basophil pct 0.2 % eGFR Collection Time: 11/25/21 10:15 AM Result Value Ref Range eGFR 64 mL/min/1.73 m2 XR Knee Right 1 or 2 View Result Date: 11/24/2021 Right total arthroplasty with components in good position. Electronically signed by: Cat Sandoval M.D. Assessment/Plan Present on Admission: ??? Primary osteoarthritis of both knees Patient is doing well on POD 2 s/p total knee arthroplasty. Continue working with PT and OT today. Plan to DC home with home health today. He would like discharge medications sent to [facility] pharmacy in [place]. Dressing care reviewed. Patient denies any further questions at this time. LORI Castro 11/26/2021 8:58 AM Cosigned by George Sepulveda MD at 11/26/2021 12:20 PM SYSTEMS ENGINEERING MANAGER EMS ENGINEERING MANAGER EMS ENGINEERING MANAGER * Nalini Dunham RN - 11/25/2021 3:24 PM CST CM Initial Assessment Interview Note Information Obtained From: Patient (11/25/211227) Admission Source: Elective surgery Impression: Osteoarthritis of the right and left knee. S/p arthroplasty total right knee, left kneeinjection Plan Includes: PT/OT evaluation, pain management, labs Primary Source of Transportation: Drives self Health Insurance Coverage: [employer] OOS/Medicare A&B Prescription Coverage: yes Pharmacy: [facility] [id number] Primary Care Provider: Santino Funk MD Prior to Admission: Primary Caregiver: Self Support System: Spouse/Significant Other Support system contact info (name, phone, availablity): Alon Gtz () [phone] Home Care Services: No Durable Medical Equipment: Cane (single prong), Walker (wheeled), Shower chair Living Arrangements: Spouse/significant other Type of Residence: Private residence Steps in home? : Yes, Outside of home (11/25/211227) Potential discharge needs include: Home Health: Physical therapy, Occupational therapy (11/25/211227) Dialysis: n/a Behavioral Health Services: no Patient expects to be Discharged to: Private residence, (11/25/211227) Additional Information: WEB DESIGNER and SDOH completed with patient at bedside. Demographics verified. Patient lives at home with his who he also states is his support system. Patient states his had knee replacement surgery 6 weeks ago and neighbors will also help out as needed. Patient is employed and states he is able to afford his medications and basic needs. He has a wheeled walker, cane and shower chair at home. He denies any home services. He does not have an Advanced Directive and would like information, social work consult entered. Patient is agreeable to [facility] with SOC on 11/27. CMwill continue to follow for discharge planning. Patient's Identified Problem/Goal Problem: Ensure acute medical [...] Collaboration with patient, MD, direct care nurse, Ethylbenzene Cracking Supervisor, Nurse Coordinator and other members of the health care team to assure needed interventions completed. 2. Return patient to optimal level of self-care post discharge. 3. Crime Analyst will follow for Discharge Planning - interventions as needed 4. Anticipated level of care at discharge 5. Planned Discharge Disposition Nalini Dunham RN, BSN - [phone] EMS ENGINEERING MANAGER * Isis Marie - 11/25/2021 1:31 PM CST Physical Therapy PT PROGRESS NOTE Gunjan Gtz Jr. 76 y.o. 1945 Past Medical History: Diagnosis Date ??? Acute gastric ulcer without hemorrhage or perforation Ulcer, gastric, acute - (Added by TW Conv) ??? Alzheimer's dementia ([facility]) ??? Asthma ??? Cataract ??? Closed fracture [...] Peptic ulcer disease ??? Seizures (CMS/HCC) ([facility]) 1998 last seizure in 1997 ??? SOB (shortness of breath) on exertion ??? Subchondral insufficiency fracture of condyle of left femur (CMS/HCC) ([facility]) ??? Vertigo ??? Visual disturbance hx of double vision, corrective lenses Past Surgical History: Procedure Laterality Date ??? CATARACT EXTRACTION, BILATERAL Bilateral 2017 ??? HERNIA REPAIR 1980 Hiatal Hernia repair ??? KNEE ARTHROSCOPY Bilateral ??? THYROIDECTOMY 12/27/2019 Patient Active Problem List Diagnosis ??? Primary osteoarthritis of both knees ??? Subchondral insufficiency fracture of condyle of left femur (CMS/HCC) (HCC) ??? Closed fracture of left tibial plateau [...] right eye ??? Skin lesion of breast TIME IN: 1542 TIME OUT: 1626 SUBJECTIVE Patient agreeable to treatment. MENTAL STATUS/ORIENTATION: Alert and oriented x4 PAIN: Pre-therapy pain level: 01/18 Pain location: R knee Pain intervention: pain medication, repositioning Post-therapy pain level/response to intervention: 07/20 OBJECTIVE PRECAUTIONS: fall precautions APPEARANCE/POSTURE: Patient supine in hospital bed, HOB elevated 45 deg, wearing pajama set and slipper socks, wound vac R LE, ice machine R LE, peripheral IV L UE. VITAL SIGNS: Resting heart rate: 61 bpm Post-activity heart rate: 54 bpm Resting O2 sat: 97% on room air Post-activity O2 sat: 98% on room air MOBILITY DOCUMENTATION: Bed Mobility/Transfers: supine to sit SBA sit to supine min assist Sit to stand SBA with wheeled walker Stand to sit mod indep with wheeled walker Stand to sit toilet CG assist with wheeled walker - uncontrolled descent Sit to stand toilet min assist with wheeled walker Gait: 20' + 80' with CG assist and wheeled walker; Deviations include slow nonfunctional gertrudis, antalgic gait, decreased bilat foot clearance, L step to R gait pattern, decreased R knee flexion, decreased R LE stance phase, two standing rest breaks patient reports it's just my vertigo but not dizzy TREATMENT: Supine post-op knee exercises x 10 reps R LE: quad sets, heel slides, begins SAQ but requests to stop 2/2 pain APPEARANCE/POSTURE (end of session): Patient supine in hospital bed, HOB elevated 30 deg, appearance unchanged, ice machine donned, call light within reach. Handoff report given to MARAH Mcgarry to apply CPM after dinner. EDUCATION: PT plan of care, supine post-op knee exercises - HEP handout issued, standing post-op knee exercises - HEP handout issued, gait deviations RESPONSE TO EDUCATION: demonstrated understanding, needs reinforcement and verbalizes understanding ASSESSMENT Activity tolerance/response to P.T.: Patient tolerates tx. Increases ambulation distance but requires two standing rest breaks. Sit to/from stand to toilet difficult due to increased knee flexion range, requires assistance to stand. Barriers to learning: Physical Barriers to discharge: Pain, Limited family support, Limited safety awareness, Unrealistic expectations, Decreased endurance, Lower extremity weakness and Stairs at home Patient continues progressing toward previously set goals which remain appropriate at this time. PLAN Patient to be seen for P.T. BID to address previously established deficits and goals. DISCHARGE LOCATION RECOMMENDATIONS: HOME with family and home health PT If this is the last note, please consider this the discharge summary. STEPHANIE Soliz 11/25/21 4:36 PM Cosigned by Isabella Moya, PT at 11/25/2021 4:45 PM SYSTEMS ENGINEERING MANAGER EMS ENGINEERING MANAGER EMS ENGINEERING MANAGER EMS ENGINEERING MANAGER * Peg Dunbar, OT - 11/25/2021 9:22 AM CST Occupational Therapy NOTE / SESSION TYPE: Initial Evaluation Patient Name: Gunjan Gtz Date of : 1945 Age / Sex: 76 y.o. / male Room: [facility] [id number] Admit Date: 11/24/2021 Date of Service: 11/25/21 Time In: 921 Time Out: 0 Primary Diagnosis: Primary osteoarthritis of both knees HPI: Gunjan Gtz is a 76 y.o. male who presents with OA right knee s/p right TKA on 11/24/21 Notable History: See Below Past Medical History: Diagnosis Date ??? Acute gastric ulcer without hemorrhage or perforation Ulcer, gastric, acute - (Added by TW Conv) ??? Alzheimer's dementia ([facility]) ??? Asthma ??? Cataract ??? Closed fracture [...] Peptic ulcer disease ??? Seizures (CMS/HCC) ([facility]) 1998 last seizure in 1997 ??? SOB (shortness of breath) on exertion ??? Subchondral insufficiency fracture of condyle of left femur (CMS/HCC) ([facility]) ??? Vertigo ??? Visual disturbance hx of double vision, corrective lenses Past Surgical History: Procedure Laterality Date ??? CATARACT EXTRACTION, BILATERAL Bilateral 2017 ??? HERNIA REPAIR 1980 Hiatal Hernia repair ??? KNEE ARTHROSCOPY Bilateral ??? THYROIDECTOMY 12/27/2019 Precautions (Including Weight-Bearing): Fall risk, Bed / chair alarm and WBAT right LE, wound vac to right knee Caregiver Present for Session (Yes or No): No SUBJECTIVE: Patient Comment: I feel like I might throw up when I bend over Pain Assessment: Pre-therapy pain level: 7 / 10 Pain location: right LE Pain intervention(s): Pain medication administered prior to session Post-therapy pain level: 7 / 10 Pain scale used: 0-10 SCALE Prior Living Environment and Level of Function: Lives with: Receives assistance from / other social supports available: available Living environment (Type of residence / Entrance accessibility): 1-story house/ trailer Bathroom location and setup: Walk-in shower, built in shower seat Prior level of function: independent with BADLs, caddie shared Mobility device used prior to admission: w/w at times Equipment available: Shower chair, Straight cane and Wheeled walker Community access / Driving: Drives self 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 Social roles / Hobbies: mostly works Patient / Family goal(s): none stated OBJECTIVE: Appearance: Presentation upon OT arrival: Patient Supine Presentation upon OT departure: Patient Sitting in bedside recliner Bed / chair alarm in place and activated upon OT departure: Yes Call light within arms reach of patient at end of session: Yes Completed patient handoff and notified Physical Therapist / Physical Therapist Group Insurance Special Agent, name: Shan, of patient's location and functional status upon completion of session Cognitive / Perceptual Assessment: Alert and awake, oriented UE ROM / Strength / Coordination: (A)ROM - Right: wfl Strength - Right: 4/5 (A)ROM - Left: wfl Strength - Left: 4/5 Hand Dominance: Right Control Room Supervisor Strength (Right) good Control Room Supervisor Strength (Left): good Right Serial Opposition: Intact Left Serial Opposition: Intact Balance: Static sitting balance: good Dynamic sitting balance: good Static standing balance: good- supported Mobility / Transfers: Bed mobility (Components & Assistance): supine to sit with min assist Transfer(s): bed to zbedside chair with cg assist using w/w Activities of Daily Living / Living Skills: UE dressing: Patient completed upper body dressing of Pullover shirt while Sitting in bedside chair / recliner with overall Set-up / clean-up assistance. Patient required assistance for item retrieval. Lower Body Dressing: Patient completed lower body dressing of Underwear and Pants with ties while Sitting in bedside chair / recliner and Standing at bedside with overall Incidental touching / contact guard assistance. Patient required assistance for pulling underwear over hips. Footwear: Patient completed footwear of Footie(s) while Sitting in bedside chair / recliner with overall Supervision assistance. Patient required assistance for item retrieval ASSESSMENT: Rehab Potential (Prognosis): good Problem List: Patient has impairments including: Decreased balance, Decreased mobility, Decreased endurance and Pain. Barriers to Discharge: Pain and Decreased endurance PLAN: OT Discharge Recommendations this date: Location: Home with family Supervision: 24 hour Follow-up therapy recommendations: Home health OT Frequency of therapy: 3-5 times / week Intervention / Education needs: ADL training, Compensatory ADL strategies, Balance activities, Functional transfer training and Safety education Education provided: Patient has been educated on Role of OT, OT plan of care, ADL training, Bed mobility training, Functional transfer training and Safety education. Individual(s) verbalized understanding and needs ongoing reinforcement. Short Term Goals / Care Plan: Multi-Disciplinary Problems (from Occupational Therapy) Active Problems Problem: OT [facility] Start Date: 11/25/21 Goal Start Date Expected End Date End Date OT STG - Misc 1 11/25/21 12/02/21 -- Goal Details: Patient will complete bathing with supervision one time. Goal Start Date Expected End Date End Date OT STG - Misc 2 11/25/21 12/02/21 -- Goal Details: Patient will complete toilet transfer with supervision one time. Goal Start Date Expected End Date End Date OT STG - Misc 3 11/25/21 12/02/21 -- Goal Details: Patient will complete car/shower transfer with supervision one time Goal Start Date Expected End Date End Date OT STG - Misc 4 11/25/21 12/02/21 -- Goal Details: Patient will complete grooming in standing x3 tasks with supervision one time. Goal Start Date Expected End Date End Date OT STG - Misc 5 11/25/21 12/02/21 -- Goal Details: Patient will complete LE dressing with supervision including item retrieval one time If this is the last note, consider this the discharge summary Peg Dunbar OT 11/25/21 EMS ENGINEERING MANAGER * Jossie Montalvo PA - 11/25/2021 8:51 AM CST Orthopedic Daily Progress Subjective Chief complaint of right total knee. Interval History: Postop day 1 right total knee arthroplasty. Patient reports he is feeling somewhat fatigued this morning, having issues with urinary retention and urgency. He has been straight cathed once during this admission, is unable to empty his bladder. He reports having these issues in thepast requiring catheterization. He has appointment to see Dr. Mayfield next month. Had nausea and vomiting yesterday, this is resolved today. Appetite fair. Post-op Day: 1 Day Post-Op Procedure: Procedure(s): ARTHROPLASTY TOTAL RIGHT KNEE, LEFT KNEE INJECTION Objective Vitals: 24hr Min/Max: Temp Min: 36.1 ??C (96.9 ??F) Max: 37.3 ??C (99.1 ??F) Pulse Min: 44 Max: 70 BP Min: 99/54 Max: 166/81 Resp Min: 9 Max: 17 SpO2 Min: 97 % Max: 100 % Most Recent : Vitals: 11/24/21 1120 11/24/21 1136 11/24/21 2133 11/25/21 0022 BP: 129/59 145/53 166/81 133/57 BP Location: Right arm Right arm Right arm Patient Position: Lying Pulse: (!) 48 (!) 44 66 70 Resp: 16 16 17 16 Temp: 36.6 ??C (97.9 ??F) 37.3 ??C (99.1 ??F) 36.9 ??C (98.5 ??F) TempSrc: Oral Oral Oral SpO2: 99% 100% 100% 100% Weight: Height: I/O last 2 completed shifts: In: 2109 [P.O.:200; I.V.:1909] Out: 0 [Urine:1350; Drains:100; Blood:20] Physical Exam: Prevena dressing is clean, dry and sealed. Able to flex extend toes, 5/5 strength in EHL. Sensationis intact in all dermatomes. Hemovac drain in place with output as expected. Hemovac drain removed without difficulty, sterile dressing applied. Gives a good quad set and can initiate a straight leg raise. Lab/Radiology/Diagnostic Review: No results found for this or any previous visit (from the past 24 hour(s)). XR Knee Right 1 or 2 View Result Date: 11/24/2021 Right total arthroplasty with components in good position. Electronically signed by: Cat Sandoval M.D. Assessment/Plan Present on Admission: ??? Primary osteoarthritis of both knees Patient is doing well following total knee arthroplasty. Begin PT and OT today, Hemovac drain removed today. Prevena dressing care reviewed, operative findings and procedure discussed and all questions answered. Will ask Urology to see for input regarding retention issues as they are exacerbated post op. Anticipate discharge home tomorrow with home health. LORI Craig 11/25/2021 8:51 AM Cosigned by George Sepulveda MD at 11/25/2021 9:17 AM SYSTEMS ENGINEERING MANAGER EMS ENGINEERING MANAGER EMS ENGINEERING MANAGER * Isis Marie - 11/25/2021 8:12 AM CST Physical Therapy INITIAL EVALUATION PATIENT'S NAME:Gunjan Gtz Jr. :1945 AGE:76 y.o. TIME IN:1002 TIME OUT:1104 CURRENT DIAGNOSIS AND HOSPITAL COURSE: Patient presents for follow-up and injections of bilat knees. Bilat knee OA managed with periodic cortisone injections following arthroscopic procedure 2 years ago. R knee pain > L knee.Underwent elective R TKA and L knee intra-articular injection on 11/24/[address] Sepulveda without complications. PMHx: closed fx of L tibial plateau with delayed healing, closed fx of R tibial plateau with delayed healing, closed nondisplaced osteochondral fx of L patella with delayed healing, closed osteochondral fx of R patella with delayed healing - subsequent encounter, complex tear of medial meniscus of L knee as current injury, complex tear of medial meniscus of R knee as current injury, osteoarthritis, seizures, SOB on exertion, subchondral insufficiency fx of condyle of L femur, visual disturbance PSHx: arthroscopic knee surgery Patient Active Problem List Diagnosis ??? Primary osteoarthritis of both knees ??? Subchondral insufficiency fracture of condyle of left femur (CMS/HCC) (HCC) ??? Closed fracture of left tibial plateau [...] (Added by TW Conv) ??? Alzheimer's dementia (HCC) ??? Asthma ??? Cataract ??? Closed fracture [...] Peptic ulcer disease ??? Seizures (CMS/HCC) ([facility]) 1998 last seizure in 1997 ??? SOB (shortness of breath) on exertion ??? Subchondral insufficiency fracture of condyle of left femur (CMS/HCC) ([facility]) ??? Vertigo ??? Visual disturbance hx of double vision, corrective lenses Past Surgical History: Procedure Laterality Date ??? CATARACT EXTRACTION, BILATERAL Bilateral 2017 ??? HERNIA REPAIR 1980 Hiatal Hernia repair ??? KNEE ARTHROSCOPY Bilateral ??? THYROIDECTOMY 12/27/2019 SUBJECTIVE LIVES WITH: LIVING ENVIRONMENT: house, split level with basement (two-stories), significant amount of steps to basement with unilat handrail and spindles, 1 step to enter front or 2 steps to enter garage withouthandrails PRIOR LEVEL OF FUNCTION: Patient independent with BADLS. Shares IADLS with . Patient is driving and working at [employer] EQUIPMENT OWNED: wheeled walker, cane, shower chair EQUIPMENT USED: wheeled walker SOCIAL SUPPORTS: Patient's , recovering from her own knee replacement. neighbors PATIENT/FAMILY GOAL: get back to work as quickly as I can, ideally in 4 weeks MENTAL STATUS/ORIENTATION: Alert and oriented x4 OBJECTIVE PRECAUTIONS: fall precautions APPEARANCE/POSTURE: Patient seated in b/s recliner, wearing pajama set, slipper socks, and glasses,peripheral IV L UE, chair alarm not in use. VITAL SIGNS: Resting BP: 167/77 Resting heart rate: 55 bpm Resting O2 sat: 96% on room air PAIN: Pre-therapy pain level: 04/19 Pain location: R knee Pain intervention: pain medication given at end of treatment, repositioning Post-therapy pain level/response to intervention: 06/20 LE ASSESSMENTS: Right LE ROM: ankle, hip WFL Left LE ROM: WFL Right Knee AAROM: 5 to 72 degrees Right LE strength: ankle 5/5, knee and hip 3+/5 observed through mobility Left LE strength: 5/5 throughout Coordination: alternating toe taps intact bilat MOBILITY: Bed mobility: sit to supine min assist - R LE . Transfers: sit to stand SBA with wheeled walker Stand to sit SBA with wheeled walker Chair to bed CG assist with wheeled walker Ambulation: Distance: 70' Assistive device: rolling walker Level of assist: contact guard Deviations: slow nonfunctional gertrudis, unsteady, antalgic gait, step to pattern L to R progresses to partial step through, decreased R knee flexion in stance, R trunk lean during L swing Stairs: Number of steps: 1 forward ascent, decent Assistive device: rolling walker Level of assist: contact guard Balance/Special Tests: Static sitting balance: G unsupported Dynamic sitting balance: G supported Static standing balance: F+ supported Dynamic standing balance: F supported [facility] 6 CLICK: Basic Mobility - 6 Click How much difficulty does the patient have: Turning over in bed: A little How much difficulty does the patient currently have: Sitting down and standing up from a chair witharms?: A little How much difficulty does the patient have: Moving from lying on back to sitting on the side of the bed?: A little How much difficulty does the patient have: Moving to and from a bed to a chair including wheelchair?: A little How much help does the patient currently need: Walk in hospital room?: A little How much help from another person does the patient currently need: Climbing 3-5 steps with a railing?: A little Total 6 Click Score (range 6-24): 18 CPM APPLICATION: CPM settings found at -10 to 60 degrees. Patient reports using CPM machine last night. This SPT adjusted CPM settings per protocol order and applied CPM machine to R knee. Current CPM settings -10 to 70 degrees. Patient tolerating new settings without increase in pain. CPM control left within reach of patient. Patient advised to use CPM for two hours. APPEARANCE/POSTURE (end of session): Patient supine in hospital bed, HOB elevated 10 deg, appearance unchanged, peripheral IV L UE, call light within reach, CPM control within reach. CPM and ice machine donned by SPT. Handoff report given to MARAH Mcgarry. EDUCATION: PT plan of care, discharge recommendations, CPM application, gait deviations, wheeled walker use, stair technique RESPONSE TO EDUCATION: demonstrated understanding, needs reinforcement and verbalizes understanding ASSESSMENT PROBLEM LIST: postop deconditioning, acute pain, decreased mobility, decreased R knee ROM, R LE weakness, gait deviations, standing balance impairments BARRIERS TO LEARNING: Physical BARRIERS TO DISCHARGE: Pain, Limited family support, Unrealistic expectations, Decreased endurance,Lower extremity weakness and Stairs at home REHAB POTENTIAL/PROGNOSIS: good PLAN DISCHARGE LOCATION RECOMMENDATIONS: HOME with family and home health PT TREATMENT PLAN/INTERVENTIONS: acute PT per above documented limitations FREQUENCY: BID EQUIPMENT RECOMMENDATIONS: wheeled walker Refer to multi-disciplinary care plan section for PT specific goals. If this is the last note, please consider this the discharge summary. Isis Marie, STEPHANIE 11/25/21 11:15 AM Cosigned by Isabella Moya, PT at 11/25/2021 4:30 PM SYSTEMS ENGINEERING MANAGER EMS ENGINEERING MANAGER EMS ENGINEERING MANAGER * Becky Moon, PT - 11/24/2021 1:10 PM CST Physical Therapy Med-cancel - Per RN patient just given medicine for abdominal cramps. In addition, patient with increased rigor, and just received from PACU. Will attempt physical therapy evaluation at a later time as schedule allows. Becky Moon, PT 11/24/21 1:11 PM EMS ENGINEERING MANAGER documented in this encounter H&P Notes * George Sepulveda MD - 11/24/2021 7:21 AM CST Orthopedic history and physical ? Subjective CHIEF COMPLAINT He had concerns including Follow-up and Injections of the Right Knee and Follow- up and Injections of the Left Knee. ?? HISTORY OF PRESENT ILLNESS This is a [...] is actually scheduled for knee replacement at [facility] at the end of this year so his timing for surgery would need to be coordinated with her procedure as well. ?? Pain Assessment Pain Assessment: 0-10 Pain Score: 8 Pain Location: Knee Pain Orientation: Right,Left Pain Descriptors: Sharp (Locking, swelling) Pain Frequency: Frequently Pain Onset: Ongoing Clinical Progression: Gradually worsening ?? PAST MEDCIAL HISTORY He has a past [...] of skin or subcutaneous tissue, Seizures (CMS/HCC) ([facility]) (1997), SOB (shortness of breath) on exertion, Subchondral insufficiency fracture of condyle of left femur(CMS/HCC) ([facility]), and Visual disturbance.He has no past medical history of Motion sickness, PONV (postoperative nausea and vomiting), or Sleep apnea. ?? PAST SURGICAL HISTORY He has a past surgical history that includes pr abdomen surgery proc unlisted; Hernia repair (1979); Cataract extraction, bilateral (Bilateral, 2018); and Thyroidectomy (12/27/2019). ?? MEDICATIONS He has a current medication list which includes the following prescription(s): acetaminophen, aspirin-sodium bicarbonate-citric acid, bismuth subsalicylate, cholecalciferol, docusate sodium, donepezil, guaifenesin/pseudoephedrne hcl, hydrocodone-acetaminophen, levothyroxine, omeprazole, oxybutynin xl, oxycodone, polyethylene glycol, pramipexole, sildenafil (pulm.hypertension), tadalafil, tamsulosin, temazepam, tizanidine, trazodone, triamcinolone, turmeric root extract, UNABLE TO FIND, and ventolin hfa. ?? ALLERGIES He has No Known Allergies. ?? SOCIAL HISTORY He reports that he quit smoking about 54 years ago. His smoking use included cigarettes. He startedsmoking about 55 years ago. He has never used smokeless tobacco. He reports current alcohol use of about 1.0 standard drink of alcohol per week. He reports that he does not use drugs. ?? FAMILY HISTORY His family history includes Heart attack in his father, mother, and sister; Heart disease in an other family member; Heart failure in an other family member; Osteoarthritis in an other family member;Osteoporosis in an other family member. ?? REVIEW OF SYSTEMS Review of Systems Constitutional: [...] decreased concentration (memory loss). Negative for hallucinations. ? Objective PHYSICAL EXAM Ht 180.3 cm (5' [...] time. Psychiatric: Mood and Affect: Affect normal. ? Right knee ?? Inspection Erythema: absent Cellulitis: absent Swelling: moderate Surgical scar/wound: present. The surgical scar/wound is healed. Skin temperature: normal Alignment: varus Gait: antalgic ?? Palpation Tenderness: present. The tenderness is located in the patella and medial joint line. Patellar tracking: normal Crepitus: positive Patella grind: negative Subluxation: negative ?? Range of motion Active extension: 0 Active flexion: 121-125 Flexion contracture: no. Extensor lag: no. Stability AP stability: stable Varus stress at 0 degrees: stable Valgus stress at 0 degrees: stable Varus stress at 30 degrees: stable Valgus stress at 30 degrees: stable Pivot shift: negative Joanna: negative Anterior drawer: negative Posterior drawer: negative ?? Strength The patient has 5/5 strength thoughout right knee. ? Neurovascular The patient has normal vascular on the right side of their body. The patient has normal sensation on the right side of their body. ?? Special tests Zoila: medial negative lateral positive Patellar apprehension: negative Patellar J-sign: negative Posterior sag: negative ? Left knee ?? Inspection Erythema: absent Cellutlis: absent Swelling: moderate Effusion: absent Surgical scar/wound: present. The surgical scar/wound is healed. Skin temperature: normal Alignment: varus Gait: antalgic ?? Palpation Tenderness: present. The tenderness is located in the patella and medial joint line. Patellar tracking: normal Crepitus: positive Patella grind: negative ?? Range of motion Active extension: -5 Active flexion: 121-125 Flexion contracture: no. Extensor lag: no. Stability Varus stress at 0 degrees: stable Valgus stress at 0 degrees: stable Varus stress at 30 degrees: stable Valgus stress at 30 degrees: stable Pivot shift: negative Joanna: negative Anterior drawer: negative Posterior drawer: negative ?? Strength The patient has 5/5 strength throughout. ?? Neurovascular The patient has normal vascular on the left side of their body. The patient has normal sensation on the left side of their body. ?? Special tests Zoila: medial negative lateral negative Patellar apprehension: negative Patella J-sign: negative Posterior sag: negative ? REVIEW OF X-RAYS/STUDIES/LABS XR Knee Bilateral 3 Views ? Bilateral knees three views demonstrates advanced varus arthritis of both knees, with subchondral sclerosis, subchondral cysts and [id number] contact in the medial compartment. Patellofemoral changes are also noted. ? Assessment ? Assessment/Plan Gunjan was seen today for follow-up, injections, follow-up and injections. ?? Diagnoses and all orders for this visit: ?? Primary osteoarthritis of left knee - XR Knee Bilateral 3 Views ?? Primary osteoarthritis of right knee - XR Knee Bilateral 3 Views ? Large Joint (Hip, Knee, Shoulder) Injection: R knee Performed by: Jossie Montalvo PA Authorized by: Jossie Montalvo PA ?? Large Joint Injection/Aspiration: Consent Given by: Patient [...] Jossie Montalvo PA ?? Large Joint Injection/Aspiration: Consent Given by: Patient [...] the procedure well with no immediate complications ? PLAN Treatment options were discussed, he anticipates [...] will be at the time of surgery. EMS ENGINEERING MANAGER documented in this encounter Consult Notes * Santino Funk MD - 11/26/2021 12:00 AM CST MEDICAL CONSULTATION History of Present Illness A 76-year-old black gentleman well known to me as a private patient has been admitted to Dr. Sepulveda's orthopedic service where he received right knee arthroplasty and left knee injection. I am asked to see him in regard to his medical concerns. He has had some urinary retention and thus has postop had a spinal block. Has got an indwelling Red. The patient denies any chest pain, shortness of breath. Is eating, getting adequate analgesia. Medical History Remarkable for hypothyroidism status post thyroidectomy. Prior herniorrhaphy. He has a history of gastric ulcer with GI bleed, reflux, seizure disorder, last seizure in 1997. Occasional benign paroxysmal positional vertigo. Medicines Listed in the chart. Allergies He has no known allergies. Social history Does not smoke. No use of alcohol. Physical examination Exam reveals him to be alert, conversant, in no acute distress. Chest clear to auscultation. NormalS1, S2. No murmurs, S3, S4. Abdomen is soft, nontender. Laboratory Data and Imaging Reports Reviewed. Impression and Recommendations Urology has been consulted regarding his urinary retention. The patient is medically stable. Thank you for including me in this patient's medical care. I will see him for routine followup in the office. Job ID/VF Job ID: [id number] EMS ENGINEERING MANAGER * Jessie Andrade NP - 11/25/2021 9:13 AM CSTAssociated Order(s): IP CONSULT TO UROLOGY Urology Consult Reason for Consult: urinary retention/urgency, post op TKA Requesting Physician: LORI Jones Consulting Physician: Dr. Dinesh Park Gunjan Gtz is a 76 y.o. male with a past medical history significant for urinary incontinence, incomplete bladder emptying, osteoarthritis of both knees, who we have been asked to see in consultation for urinary retention and urgency, post op TKA. Patient underwent a total right knee arthroplastyon 11/24/2021. Explains that he was unable to pass urine postop. The nurses performed a bladder scan and straight cath on two different occasions for bladder scan that demonstrated urinary retention.The nurse reports that he eliminated 250 ml at 730 am. He recently eliminated 100 cc urine via the urinal. He is on oxybutynin 10 mL XL that was started prior to admission. Denies dysuria or gross hematuria. Past Medical History: Diagnosis Date ??? Acute gastric ulcer without hemorrhage or perforation Ulcer, gastric, acute - (Added by TW Conv) ??? Alzheimer's dementia ([facility]) ??? Asthma ??? Cataract ??? Closed fracture [...] Peptic ulcer Peptic ulcer disease ??? Seizures ([facility]) ([facility]) 1998 last seizure in 1997 ??? SOB (shortness of breath) on exertion ??? Subchondral insufficiency fracture of condyle of left femur ([facility]) ([facility]) ??? Vertigo ??? Visual disturbance hx of double vision, corrective lenses Past Surgical History: Procedure Laterality Date ??? CATARACT EXTRACTION, BILATERAL Bilateral 2017 ??? HERNIA REPAIR 1980 Hiatal Hernia repair ??? KNEE ARTHROSCOPY Bilateral ??? THYROIDECTOMY 12/27/2019 Social History Tobacco Use ??? Smoking status: Former Smoker Types: Cigarettes Start date: 1965 Quit date: 1967 Years since quittin.1 ??? Smokeless tobacco: Never Used Substance Use [...] Heart attack Father ??? Heart attack Sister Medications Prior to Admission Medication Sig Dispense Refill Last Dose ??? acetaminophen 500 mg capsule Take 2 capsules (1,000 mg total) by mouth every 6 (six) hours (Patient taking differently: Take 650 mg by mouth every 6 (six) hours) 30 tablet 1 Past Week at Unknown time ??? cholecalciferol (VITAMIN D-3) 2000 unit capsule Take 1 capsule (2,000 Units total) by mouth daily (Patient taking differently: Take 2,000 Units by mouth nightly) 30 capsule 3 11/23/2021 at Unknowntime ??? donepeziL (ARICEPT) 10 mg tablet Take 1 tablet (10 mg total) by mouth nightly 30 tablet 5 11/23/2021 at 2100 ??? magnesium oxide (MAG-OX) 250 mg (150.8 mg elemental) tablet Take 250 mg by mouth nightly 11/24/2021 at 0530 ??? omeprazole (PriLOSEC) 20 mg capsule take 1 capsule by oral route every day before a meal (Patient taking differently: Take 20 mg by mouth 2 (two) times a day) 0 0 11/24/2021 at 0530 ??? oxybutynin XL (DITROPAN-XL) 10 mg 24 hr tablet Take 10 mg by mouth nightly 11/23/2021 at 2100 ??? polyethylene glycol (MIRALAX) 17 gram packet Take 17 g by mouth daily as needed for constipation Past Week at Unknown time ??? senna-docusate (PERICOLACE) 8.6-50 mg Take 1 tablet by mouth nightly Past Week at Unknown time ??? tamsulosin (FLOMAX) 0.4 mg extended release capsule Take 0.4 mg by mouth nightly 11/23/2021 at 2100 ??? tiZANidine (ZANAFLEX) 2 mg tablet Take 2 tablets (4 mg total) by mouth nightly 1 to 2 tablets at bedtime 60 tablet 5 Past Week at Unknown time ??? traZODone (DESYREL) 50 mg tablet Take by mouth nightly 10/12 to 1 tablet 11/23/2021 at 2100 ??? turmeric root extract 500 mg capsule Take 1,000 mg by mouth nightly Past Week at Unknown time ??? UNABLE TO FIND Take 1 each by mouth nightly Med Name: muscle cramp pain reliever Patient takes 3 different OTC homeopathic muscle cramp medications Past Week at Unknown time ??? HYDROcodone-acetaminophen (NORCO) 7.5-325 mg per tablet Take 1 tablet by mouth every 8 (eight) hours as needed for pain ??? levothyroxine (SYNTHROID) 150 mcg tablet Take 150 mcg by mouth daily No Known Allergies Review of Systems: All other systems except the HPI are negative. Vitals: Most Recent : Vitals: 11/25/21 0022 BP: 133/57 Pulse: 70 Resp: 16 Temp: 36.9 ??C (98.5 ??F) SpO2: 100% Objective Physical Exam: General: does not appear in acute distress; no pain present Head: normocephalic/atraumatic Eyes: no discharge noted; (R,L) extraocular movements are intact; visual field normal Ears: (R,L) hearing grossly normal Nose/Mouth/Throat: mucous membranes moist Neck: neck inspection is normal; neck ROM normal Respiratory: has normal respiratory effort Exam: 100 cc of urine noted in the urinal Neurology: patient is alert and oriented times three Mood: has normal mood and affect Assessment: Principal Problem: Primary osteoarthritis of both knees Gunjan Gtz is a 76 y.o. male with urinary retention and incomplete bladder emptying with a history or urinary incontinence. A. This is likely multifactorial. Common precipitating factors for provoked AUR include cystitis, large fluid intake, cold exposure, alcohol ingestion, traveling, severe constipation, urethral instrumentation, bladder over distension, pain and general or spinal anesthesia. (Initial Evaluation and Ma nagement of Acute Urinary Retention, Lesson 10, Volume 35, AUA Update Series) B. Additional etiologies for chronic urinary retention include diabetic cystopathy, enlarged prostate, bladder selective muscarinic antagonistatonic/neurogenic bladder. Plan: Urinary retention is a common occurrence in hospitalized patients, and it is managed routinely withbladder drainage of some variety. Dr. Montiel explained that drainage is recommended in order to protect the function of the urinary tract; and without drainage upper urinary tract, as well as lower urinary tract, injury could occur. 1. Continue Flomax and finasteride 2. Stop the oxybutynin 3. Obtain a bladder scan every four hours. Place an indwelling Red catheter for a bladder scan greater than 300 ml. The Red will be removed during the hospital follow up visit. 4. Patient is scheduled for a follow up visit on Sunday, November 28, 2021 at 10:40 am. 5. No urological interventions are planned during this admission. Urology to sign off. Thank you for allowing Urology to be a part of the care of your patient. Please call if you have any questions. SEAN Dahl [facility] [employer] Department of Surgery, Division of Urology [phone] 11/25/2021 9:14 AM EMS ENGINEERING MANAGER EMS ENGINEERING MANAGER EMS ENGINEERING MANAGER documented in this encounter Nursing Notes * Meagan Alonso RN - 11/26/2021 3:37 PM CST Patient discharged to home via private vehicle accompanied by spouse. Discharge instructions reviewed with patient and/or inbound call center representative. Mobile pharmacy medications and/or prescriptions provided. Belongings/home medications returned. EMS ENGINEERING MANAGER * Meagan Alonso RN - 11/26/2021 9:18 AM CST Assessment of patient???s baseline is established at the beginning of the shift in flowsheets. Patient reassessed per order, unexpected findings and/or deviations from baseline are captured in flowsheets. Frequent safety checks and comfort rounds provided. Orders and/or nursing care completed as indicated. Patient monitored for response to interventions and treatments as documented in flowsheets. Plan of care discussed with patient/inbound call center representative, including as it relates to Principal Problem: Primary osteoarthritis of both knees Patient progressing. Clinical goals for the shift: Pain management, Discharge home. Education provided includes Discharge Planning, Fall Prevention and Pain Management. Patient and/or inbound call center representative Verbalizes understanding. Will continue to monitor. EMS ENGINEERING MANAGER documented in this encounter Miscellaneous Notes * Plan of Care - Nalini Dunham RN - 11/26/2021 2:59 PM CST Home Care Coordination: home health arranged with [facility] per pt choice. Entered onAVS, okay to d/c from CM standpoint. No further f/u from at this time. CM spoke with Patricia at [facility]. They will be contacting patient with SOC, patient will be seen Friday 12/01 unless there is an opening. Nalini Dunham RN, BSN - [phone] EMS ENGINEERING MANAGER * Plan of Care - Nalini Dunham RN - 11/26/2021 2:16 PM CST Patient has been accepted by [facility] for . Documentation and HH order faxed to Patricia (ph. [phone]/fax [phone]). Therapist will review for completion. Nalini Dunham RN, BSN - CM [phone] EMS ENGINEERING MANAGER * Plan of Care - Nalini Dunham RN - 11/26/2021 12:01 PM CST LUCIO was informed by Maisha Gimenez with [facility] that patient's primary insurance is a high deductible plan and he has not met any of his deductible or out of pocket and they do not accept his secondary insurance, [employer]. LUCIO spoke with patient who thought about paying for [facility] services but then checked with his who is recovering from knee surgery and he would like to see if [facility] would be able to see him at home. LUCIO spoke with Patricia ([phone]) and she will check with the HHtherapist to see if patient is in the coverage area and call me back. Nalini Dunham RN, BSN - [phone] EMS ENGINEERING MANAGER * Plan of Care - Ap Pang COTA - 11/26/2021 11:44 AM CST Problem: OT Misc Goal: OT STG - Misc 3 Description: Patient will complete car/shower transfer with supervision one time Outcome: Progressing Note: LOCATION: CAR SIMULATOR SET AT HEIGHT OF 20 INCHES PER PATIENT'S HOME VEHICLE OVERALL ASSIST LEVEL: INCIDENTAL TOUCHING ASSISTANCE DEVICE: WHEELED WALKER ADDITIONAL DOCUMENTATION: using leg facility engineer to assist with RLE with increased time Patient verbalized good understanding of shower transfer technique to shower bench with DME education and pricing options at his local [facility]. Did not attempt transfer at this time due to pain. ANGI Rodriguez 11/26/21 11:45 AM EMS ENGINEERING MANAGER * Plan of Care - Patricia Chen RN - 11/26/2021 3:34 AM CST Problem: Health Behavior: Goal: Understanding of discharge [...] injury in home environment Outcome: Progressing Problem: Activity: Goal: Ability to avoid complications of mobility impairment will improve Outcome: Progressing Goal: Range of joint motion will improve Outcome: Progressing Goal: Ability to tolerate increased activity will improve Outcome: Progressing Goal: Will remain free from falls Outcome: Progressing Problem: Lack of Knowledge: Goal: Verbalization of understanding the information provided will improve Outcome: Progressing Problem: Physical Regulation: Goal: Ability to maintain clinical measurements within normal limits will improve Outcome: Progressing Goal: Postoperative complications will be avoided or minimized Outcome: Progressing Goal: Diagnostic test results will improve Outcome: Progressing Problem: Self-Care: Goal: Ability to meet self-care needs will improve Outcome: Progressing Problem: Sensory: Goal: Pain level will decrease Outcome: Progressing Problem: Skin Integrity: Goal: Signs of wound healing will improve Outcome: Progressing Goal: Will remain free from infection Outcome: Progressing Goal: Risk for impaired skin integrity will decrease Outcome: Progressing Goals: Clinical Goals for the Shift: safety and comfort Summary: EMS ENGINEERING MANAGER * Plan of Care - Maxime Carter LMSW - 11/25/2021 2:17 PM CST RADIATION / CHEMISTRY TECHNICIAN attempted to speak to pt to provide advanced directive information. RADIATION / CHEMISTRY TECHNICIAN was unable to speak to him. RADIATION / CHEMISTRY TECHNICIAN provided advanced directive information in his chart. RADIATION / CHEMISTRY TECHNICIAN will continue to follow as needed. Maxime Carter LMSW Ethylbenzene Cracking Supervisor Case Management, 10th Floor 11/25/21 2:17 PM EMS ENGINEERING MANAGER * Plan of Care - Gem Gimenez RN - 11/25/2021 1:22 PM CST Home Health Consult received patient accepted to [facility] home care. ADD 11/26 with SOC 11/27 for PT/OT. LUCIO Pearce notified. EMS ENGINEERING MANAGER * Plan of Care - Peter Negron - 11/25/2021 4:15 AM CST Goals: Clinical Goals for the Shift: Safety and Comfort Measures, Pain management Problem: Health Behavior: Goal: Understanding of discharge [...] injury in home environment Outcome: Progressing Problem: Activity: Goal: Ability to avoid complications of mobility impairment will improve Outcome: Progressing Goal: Range of joint motion will improve Outcome: Progressing Goal: Ability to tolerate increased activity will improve Outcome: Progressing Goal: Will remain free from falls Outcome: Progressing Problem: Lack of Knowledge: Goal: Verbalization of understanding the information provided will improve Outcome: Progressing Problem: Physical Regulation: Goal: Ability to maintain clinical measurements within normal limits will improve Outcome: Progressing Goal: Postoperative complications will be avoided or minimized Outcome: Progressing Goal: Diagnostic test results will improve Outcome: Progressing Problem: Self-Care: Goal: Ability to meet self-care needs will improve Outcome: Progressing Problem: Sensory: Goal: Pain level will decrease Outcome: Progressing Problem: Skin Integrity: Goal: Signs of wound healing will improve Outcome: Progressing Goal: Will remain free from infection Outcome: Progressing Goal: Risk for impaired skin integrity will decrease Outcome: Progressing Summary: Patient's vital signs is stable. PRM medication given accordingly. Started CPM last night. Patient did not urinate since PACU. I did a bladder scan showed 600mls; bladder was slightly distented, I did In and out per order and drained 750mls of urine. Patientw as able to urinate at 0200hrs and 0414hrs 100mls each time however I still did a bladder scan and was 204mls. I will continue to monitor the patient EMS ENGINEERING MANAGER * Significant Event - Kelin Mendiola NP - 11/24/2021 9:00 PM CST Significant Event Hospitalist Service Hospitalist service called and accepted for medical consult. On further review of the chart it is noted that the patient's PCP is Dr. Santino Funk who see's his own patients. Nursing on the 10th floor instructed to call Dr. Funk for consult. EMS ENGINEERING MANAGER * Op Note - George Sepulveda MD - 11/24/2021 8:30 AM CST Operative Note Name: Gunjan Gtz Jr. : 1945 AGE: 76 y.o. DATE: 11/24/2021 SURGEON: George Sepulveda MD AUXILIARY ENGINEER: CHECO Sears, CHECO Jones PREOPERATIVE DIAGNOSIS: 1. Osteoarthritis of the right knee 2. Osteoarthritis of the left knee POST OPERATIVE DIAGNOSIS: 1. Osteoarthritis of the right knee 2. Osteoarthritis of the left knee OPERATION PERFORMED: 1. Primary total knee arthroplasty right knee 2. Intra-articular injection left knee COMPLICATIONS: None ESTIMATED BLOOD LOSS: 50 cc TOURNIQUET TIME: 50 min SPECIMEN: Bone cuts sent to pathology ANESTHESIA: Spinal plus local anethesic IMPLANTS: FEMUR Jim Persona Size 11 Narrow Cruciate Retaining Press-fit femoral component. TIBIA Jim Persona Size G Cemented tibial base plate with 30mm stem PATELLA Size 35 Cemented all polyethylene patella POLYETHYLENE Size 10 mm MC highly cross-linked polyethylene insert. INDICATION: Patient is a 76 y.o. year old male with long standing right knee pain. He has failed conservative therapies for the knee including cortisone injections and physical therapy. He has elected for operative intervention. The risks and benefits of the procedure were thoroughly explained prior to informed consent being obtained. OPERATIVE FINDINGS: Endstage Osteoarthritis PROCEDURE: After informed consent was obtained, the patient was identified in the preop holding area and the right lower extremity was marked for surgery and the left knee for injection. The patient was then taken to operating the room, placed under spinal anesthesia and then positioned supine on the operating table. 2gm Ancef was given for antibiotic prophylaxis. The left knee was then prepped. Using sterile technique the knee was then injected with 80mg DepoMedrol and 4cc of 0.25% marcaine without epinephrine. A sterile band-aid was applied at the conclusion. The right lower extremity was then prepped and draped in the normal sterile fashion. Time-out was initiated. The correct patient, procedure, side, and site were identified. The leg was then exsanguinated and the tourniquet was inflated to 300 mmHg. I then made a midline incision approximately 12 cmin length, dissected down to the patellar fascia and elevated large skin flaps. I then performed a medial parapatellar arthrotomy. After excising the infrapatellar fat pad the patella was inverted and demonstrated significant articular damage. I elected to proceed with patella resurfacing at this time. The patella was measured using calipers to be 26 mm and using a patella reamer I then resected 1 0 mm. The patella component was sized to a 35. I then then replaced the patella in its normal anatomic position. I then flexed the knee up, marked the anterior- posterior axis of the knee and proceeded to drill into the intramedullary canal. I placed the distal femoral cutting guide into position for a 5 degree valgus cut. I secured the cutting block with 3 pins and then proceeded to make the distal femoral cut. Bone pieces were removed. I then excised the anterior medial and lateral meniscus and the anterior cruciate ligament. I then placed the femoral sizing guide in position and measured a size 11. I drilled for the cutting block using posterior condylar referencing and the anterior-posterior axis of the knee to assess proper external rotation. I then proceeded to place the femoral cutting block in position. I secured it with 2 pins and made the femoral cuts, anterior, posterior, posterior chamfer, anterior chamfer. Bone pieces were removed. I then excised the remaining meniscus medially and laterally. I then placed the tibial cutting guide in position, measured 10 mm resection off of the lateral side and secured the cutting block with 2 pins. I then dropped a drop matti in line with the anterior crest of the tibia and secured the cutting block with a 3rd pin to ensure adequate rotation. I then made the tibial cut. The bone piece was removed and taken to the back table where it was sized. I then proceeded to trial. I trialed a size G tibia and a size 11 femur. I placed a size 10 polyethylene and the knee had excellent stability in flexion, extension, varus and valgus stress at all angles. I then drilled for the final components and removed the trial components. I then placed 30 mL of 0.5% Marcaine in the posterior capsule and surrounding capsular structures. I placed 10 mL of FloSeal in the posterior capsule and held compression for 3 minutes. While the FloSeal was being compressed I inverted the patella again and drilled for the final patellar component. At this time cement was mixed on the back table. I then opened the final femoral and tibial components on theback table and attached them to their respective entry handles. The tibia component was then surface coated with cement and implanted into the knee. The femoral component was then placed and a size 10 polyethylene was placed into the knee to hold the cemented tibia in position while the cement hardened. The patella component was then placed and held in position while the cement was allowed to harden. I then proceeded to trial with a size 10 polyethylene and was satisfied with the stability of the knee. I opened the size 10 polyethylene on the back table and inserted it into the tibial tray without complication. I then took the knee through a full range of motion. The patella demonstrated noevidence of instability. I then proceeded to irrigate the knee copiously with 3 L of normal saline containing vancomycin and polymyxin. I then placed drains in the deep intra-articular space and superficial subcutaneous space and closed the parapatellar arthrotomy with a #1 Vicryl stitch in interrupted [id number] fashion. The subcutaneous tissue was closed with 2-0 Vicryl and skin was closed with a staple closure. Sterile dressings were then applied. The patient then awoken from anesthesiaand transferred to the PACU in stable condition. All sponge and needle counts were correct. senior underwriting assistant Norma Park helped to position the patient pre-operatively, assisted in opening, held retractors during the case and closed the subcutaneous tissue and skin at the conclusion. She then assisted in the transfer of the patient to the post-operative bed and transport to PACU. Due to the complexity of the case, the skill set of an orthopedic physician optometry assistant was necessary throughout the case. She effectively limited the operative time and significantly facilitated a successful surgical procedure. George Sepulveda MD 11/24/2021 9:37 AM EMS ENGINEERING MANAGER EMS ENGINEERING MANAGER documented in this encounter Plan of Treatment Upcoming Encounters Date Type Department Care Team (Latest Contact Info) Description 10/23/2024 10:00 AM SYSTEMS ENGINEERING MANAGER Hospital Encounter [facility] Operating Room [address] [place] [id number] [place] [id number] [id number] 10/23/2024 10:00 AM SYSTEMS ENGINEERING MANAGER - 10/23/2024 1:00 PM SYSTEMS ENGINEERING MANAGER Surgery [facility] Operating Room [address] [place] [id number] [place] [id number] [address] ARTHROPLASTY TOTAL KNEE LEFT Scheduled Procedures Name Priority Associated Diagnoses Date/Ti me ARTHROPLASTY TOTAL KNEE left knee osteoarthritis 10/23/2024 10:00 AM SYSTEMS ENGINEERING MANAGER ESOPHAGOGASTRODUODENOSCOPY Dysphagia, unspecified type documented as of this encounter Procedures Procedure Name Priority Date/Time Associated Diagnosis Comments EGFR Routine 11/25/2021 10:15 AM SYSTEMS ENGINEERING MANAGER DIFFERENTIAL AUTO Routine 11/25/2021 10: 15 AM SYSTEMS ENGINEERING MANAGER CBC WITH AUTO DIFFERENTIAL Routine 11/25/2021 10:15 AM SYSTEMS ENGINEERING MANAGER BASIC METABOLIC PANEL Routine 11/25/2021 10:15 AM SYSTEMS ENGINEERING MANAGER SURGICAL PATHOLOGY Routine 11/24/2021 12 :43 PM SYSTEMS ENGINEERING MANAGER Primary osteoarthritis of both knees XR KNEE RIGHT 1 OR 2 VIEWS IP Routine 11/24/2021 10:40 AM SYSTEMS ENGINEERING MANAGER ARTHROPLASTY TOTAL KNEE 11/24/2021 8:23 AM SYSTEMS ENGINEERING MANAGER Primary osteoarthritis of both knees B CHECK SAMPLE STAT 11/24/2021 7:57 AM SYSTEMS ENGINEERING MANAGER documented in this encounter Results * eGFR (11/25/2021 10:15 AM SYSTEMS ENGINEERING MANAGER) eGFR 64 mL/min/1. 73 m2 [facility] Comment: Interpretive Data Reference Interval Normal ?>/= [...] interpretive data was last reviewed 2021. Blood 11/25/2021 10:1 5 AM SYSTEMS ENGINEERING MANAGER 11/25/2021 10:23 AM SYSTEMS ENGINEERING MANAGER us George Sepulveda MD LAB BLOOD ORDERABLES Krystina solitario Result [facility] [id number] Department [place] [address] * (ABNORMAL) Differential, auto (11/25/2021 10:15 AM SYSTEMS ENGINEERING MANAGER) Neutrophil abs 9.2(H) 1.7 - 6.5 K/cumm [facility] Imm gran abs 0.1 0.0 - 0.1 K/cumm [facility] Lymphocyte abs 1.7 0.8 - 3.3 K/cumm [facility] Monocyte abs 1.3(H) 0.2 - 0.8 K/cumm [facility] Eosinophil abs 0.0 0.0 - 0.5 K/cumm [facility] Basophil abs 0.0 0.0 - 0.1 K/cumm [facility] Neutrophil pct 74.7 % [facility] Comment: Interpretive Data Percent cell count reference ranges are not reported, since discordance with absolute values may lead to misinterpretation of CBC data. Current Interpretive Data was last revised on 2018. Imm gran pct 0.5 % [facility] Comment: Interpretive Data Percent cell count reference ranges are not reported, since discordance with absolute values may lead to misinterpretation of CBC data. Current Interpretive Data was last revised on 2018. Lymphocyte pct 13.7 % [facility] Comment: Interpretive Data Percent cell count reference ranges are not reported, since discordance with absolute values may lead to misinterpretation of CBC data. Current Interpretive Data was last revised on 2018. Monocyte pct 10.7 % [facility] Comment: Interpretive Data Percent cell count reference ranges are not reported, since discordance with absolute values may lead to misinterpretation of CBC data. Current Interpretive Data was last revised on 2018. Eosinophil pct 0.2 % [facility] Comment: Interpretive Data Percent cell count reference ranges are not reported, since discordance with absolute values may lead to misinterpretation of CBC data. Current Interpretive Data was last revised on 2018. Basophil pct 0.2 % [facility] Comment: Interpretive Data Percent cell count reference ranges are not reported, since discordance with absolute values may lead to misinterpretation of CBC data. Current Interpretive Data was last revised on 2018. Blood 11/25/2021 10:1 5 AM SYSTEMS ENGINEERING MANAGER 11/25/2021 10:23 AM SYSTEMS ENGINEERING MANAGER George Sepulveda MD LAB BLOOD ORDERABLES Krystina solitario Result [facility] [id number] [address] [place] [address] * (ABNORMAL) CBC with auto differential (11/25/2021 10:15 AM SYSTEMS ENGINEERING MANAGER) WBC 12.3(H) 3.8 - 9.9 K/cumm [facility] Hgb 13.8 13.0 - 17.5 g/dL [facility] Hct 41.2 38.9 - 50.3 % [facility] Plt 194 150 - 400 K/cumm [facility] MPV 10.2 9.1 - 12.3 fL [facility] RBC 4.03(L) 4.30 - 5.80 M/cumm [facility] MCV 102.2(H) 81.3 - 96.4 fL [facility] MCH 34.2(H) 27.1 - 33.3 pg [facility] MCHC 33.5 32.3 - 35.7 g/dL [facility] RDW CV 12.4 11.1 - 14.9 % [facility] RDW SD 47.6 35.7 - 48.1 fL [facility] NRBC abs 0.00 0.00 - 0.01 K/cumm [facility] Blood 11/25/2021 10:1 5 AM SYSTEMS ENGINEERING MANAGER 11/25/2021 10:23 AM SYSTEMS ENGINEERING MANAGER George Sepulveda MD LAB BLOOD ORDERABLES Krystina l Result Performing Organization Address City/[facility]/ZIP Co de Phone Number [facility] [phone] [address] [place] [address] * Basic metabolic panel (11/25/2021 10:15 AM SYSTEMS ENGINEERING MANAGER) Sodium 140 135 - 145 mmol/L [facility] Potassium, pl 4.4 3.3 - 4.9 mmol/L [facility] Chloride 105 97 - 110 mmol/L [facility] CH CO2 24 22 - 32 mmol/L [facility] Anion gap 11 2 - 15 mmol/L [facility] BUN 18 8 - 25 mg/dL [facility] Creatinine 1.18 0.80 - 1.30 mg/dL [facility] Glucose 144 70 - 199 mg/dL [facility] Comment: Interpretive Data Fasting glucose >/= 126 [...] interpretive data was last revised 2017. Calcium 8.6 8.5 - 10.3 mg/dL [facility] Blood 11/25/2021 10:1 5 AM SYSTEMS ENGINEERING MANAGER 11/25/2021 10:23 AM SYSTEMS ENGINEERING MANAGER George Sepulveda MD LAB BLOOD ORDERABLES Krystina l Result Performing Organization Address City/[facility]/ZIP Co de Phone Number [facility] [phone] [address] [place] [address] * Surgical pathology (11/24/2021 12:43 PM SYSTEMS ENGINEERING MANAGER) Tissue (Bone Fragment(s),) 11/24/2021 9:00 AM SYSTEMS ENGINEERING MANAGER Narrative PATHOLOGY CH - 11/26/2021 2:46 PM SYSTEMS ENGINEERING MANAGER EPIC results best viewed via link to PDF [facility] Department of Pathology [address] [place] [id number] Note to Patients: This report may contain [...] can answer questions and explain the details. Final Report Patient Name: ??GUNJAN GTZ JR Address: ??[address] [place] [address], ??[place], [place] ??[address] Gender: ??M : ??1945 (Age: 76) Service: ??Laboratory Location: ??[address] Hospital #: ??[id number] Patient Type: ??[facility] Accession # ?[id number] Taken: ??11/24/2021 Received: ??11/24/2021 Accessioned: ??11/24/2021 Reported: ??11/26/2021 Physician(s):Estelita Davis M.D. Diagnosis: A: Right knee, total arthroplasty: ? -Degenerative changes, consistent with osteoarthritis Lara Navarrete M.D. Report Electronically Reviewed and Signed Out By ??Lara Navarrete M.D. ??11/26/2021 14:46:43 Specimen(s) Received: A: Right total knee bone cuttings Microscopic Description: Sections demonstrate surface degenerative changes. ??Submitted synovial tissue shows benign fibrofatty connective tissue with cautery artifact. Clinical History: Primary osteoarthritis of both knees Procedure: arthroplasty total right knee Gross Description: The container is labeled Gunjan Gtz and right knee . ??It is a 6 by 4 x 4 cm in aggregate of irregularly-shaped fragments of bone and an approximate 10 cc aggregate of soft tissue consisting of adipose tissue, portions of menisci and some synovium. Recognizable pieces of bone include the tibial plateau and portions of femoral condyles. ??Some of the bone fragments are covered by articular cartilage showing varying degrees of degenerative changes that include eburnation, pitting and roughened granularity. ??Decalcified and represented in two cassettes. ??Jm Ramey M.D./Sharon Valdes REPORT IMAGES AND SCANNED DOCUMENTS, IF INCLUDED, ONLY VIEWABLE IN PDF VERSION OF REPORT The performance characteristics of some immunohistochemical stains, fluorescence in-situ hybridization tests and immunophenotyping by flow cytometry cited in this report (if any) were determined by the Surgical Pathology Department at [facility] as part of an ongoing automotive quality engineer program and in compliance with federally mandated [...] characteristics determined by the Surgical Pathology Department [facility]. ??It has not been cleared or approved by the [place]. [place]. Food and Drug Administration. George Sepulveda MD LAB PATHOLOGY ORDERABLES Final Result PATHOLOGY [id number] [place] [address] * XR Knee Right 1 or 2 View (11/24/2021 10:40 AM SYSTEMS ENGINEERING MANAGER) Anatomical Region Laterality Modality Lower Extremities, Knee Right Computed Radiography 11/24/2021 10:5 9 AM SYSTEMS ENGINEERING MANAGER Impressions 11/24/2021 10:59 AM SYSTEMS ENGINEERING MANAGER Right total arthroplasty with components in good position. Electronically signed by: Cat Sandoval M.D. Narrative 11/24/2021 10:59 AM SYSTEMS ENGINEERING MANAGER EXAMINATION: XR KNEE RIGHT 1 OR 2 [...] overlying the operative site. Procedure Note Cat Sandoval MD - 11/24/2021 EXAMINATION: XR KNEE RIGHT [...] IMG XR PROCEDURES Final R esult * Check Sample (11/24/2021 7:57 AM SYSTEMS ENGINEERING MANAGER) ABO Rh O Negative [facility] OTHER 11/24/2021 7:57 AM SYSTEMS ENGINEERING MANAGER 11/24/2021 7:57 AM SYSTEMS ENGINEERING MANAGER George Sepulveda MD LAB BLOOD ORDERABLES Krystina l Result [facility] [address] Department [place] [address] documented in this encounter Visit Diagnoses Diagnosis Primary osteoarthritis of both knees- Primary Primary osteoarthritis of both knees documented in this encounter Admitting Diagnoses Diagnosis Primary osteoarthritis of both knees documented in this encounter Administered Medications Inactive Administered Medications - up to 3 most recent administrations Medication Order MAR Action Action Date Dose Rate Site cholecalciferol (VITAMIN D-3) tablet 2,000 Units 2,000 Units, oral, Nightly, First dose on Wed11/24/21 at 2100 Given 11/25/2021 9:55 PM SYSTEMS ENGINEERING MANAGER 2,000 Units Given 11/24/2021 9:51 PM SYSTEMS ENGINEERING MANAGER 2,000 Units donepeziL (ARICEPT) tablet 10 mg 10 mg, oral, Nightly, First dose on Wed11/24/21 at 2100 Given 11/25/2021 9:54 PM SYSTEMS ENGINEERING MANAGER 10 mg Given 11/24/2021 9:49 PM SYSTEMS ENGINEERING MANAGER 10 mg famotidine (PEPCID) tablet 20 mg 20 mg, oral, 2 times daily, First dose on Wed11/24/21 at 1230, Indications: HeartburnIndications:Heartburn Given 11/26/2021 8:18 AM SYSTEMS ENGINEERING MANAGER 20 mg Given 11/25/2021 9:54 PM SYSTEMS ENGINEERING MANAGER 20 mg Given 11/25/2021 8:54 AM SYSTEMS ENGINEERING MANAGER 20 mg ketorolac (TORADOL) 15 mg/mL injection 15 mg 15 mg, intravenous, Every 6 hours PRN, 2nd line for pain, Starting on Wed11/24/21 at 1149, For 5 days, For Adult IV push, administer over 15 seconds Given 11/26/2021 10:50 AM SYSTEMS ENGINEERING MANAGER 15 mg Given 11/25/2021 5:18 PM SYSTEMS ENGINEERING MANAGER 15 mg Given 11/25/2021 8:54 AM SYSTEMS ENGINEERING MANAGER 15 mg Lactated Ringer's (LR) infusion - ADS Override Pull Starting on Wed11/24/21 at 1030, For 1 dose, Created by cabinet override Lactated Ringer's (LR) infusion 30 mL/hr, intravenous, Continuous, Starting on Wed11/24/21 at 0745 New Bag 11/24/2021 11:01 AM SYSTEMS ENGINEERING MANAGER 30 mL/hr 30 mL/hr Restarted 11/24/2021 10:09 AM SYSTEMS ENGINEERING MANAGER New Bag 11/24/2021 8:24 AM SYSTEMS ENGINEERING MANAGER 50 mL/hr levothyroxine (SYNTHROID) tablet 150 mcg 150 mcg, oral, Daily (early AM), First dose on Wed11/25/21 at 0600, Administer on an empty stomach, preferably 30 minutes before breakfast. Take 4 hours apart from antacids, iron and calcium products. Given 11/26/2021 6:05 AM SYSTEMS ENGINEERING MANAGER 150 mcg Given 11/25/2021 6:17 AM SYSTEMS ENGINEERING MANAGER 150 mcg magnesium oxide (MAG-OX) tablet 200 mg 200 mg, oral, Nightly, First dose on Wed11/24/21 at 2100, 1 tablet = Magnesium oxide 400 mg = 241.3 mg elemental magnesium, Indications: hypomagnesemiaIndications:hypomagnesemia Given 11/25/2021 9:52 PM SYSTEMS ENGINEERING MANAGER 200 mg Given 11/24/2021 9:51 PM SYSTEMS ENGINEERING MANAGER 200 mg ondansetron (ZOFRAN) injection 4 mg 4 mg, intravenous, Administer over 2 Minutes, Every 6 hours PRN, nausea, vomiting, if not tolerating PO, Starting on Wed11/24/21 at 0723, Indications: nausea and vomitingIndications:nausea and vomiting Given 11/24/2021 5:18 PM SYSTEMS ENGINEERING MANAGER 4 mg ondansetron ODT (ZOFRAN-ODT) disintegrating tablet 4 mg 4 mg, oral, Every 6 hours PRN, nausea, vomiting, Starting on Wed11/24/21 at 0723, Indications: nausea and vomitingIndications:nausea and vomiting oxybutynin XL (DITROPAN-XL) extended release tablet 10 mg 10 mg, oral, Nightly, First dose on Wed11/24/21 at 2100, Do not crush, chew, cut, dissolve, open or otherwise manipulate tablet/capsule. Given 11/24/2021 9:52 PM SYSTEMS ENGINEERING MANAGER 10 mg oxyCODONE-acetaminophen (PERCOCET) 10-325 mg per tablet 1 tablet 1 tablet, oral, Every 4 hours PRN, 1st line for pain, Starting on Wed11/24/21 at 1149, Indications: PainIndications:Pain Given 11/26/2021 1:10 PM SYSTEMS ENGINEERING MANAGER 1 tablet Given 11/26/2021 8:58 AM SYSTEMS ENGINEERING MANAGER 1 tablet Given 11/26/2021 4:56 AM SYSTEMS ENGINEERING MANAGER [address] (PROTONIX) extended release tablet 40 mg 40 mg, oral, Daily, First dose on Wed11/24/21 at 1230, Do not crush, chew, cut, dissolve, open or otherwise manipulate tablet/capsule., Indications: Mucositis ProphylaxisIndications:Mucositis Prophylaxis Given 11/26/2021 8:18 AM SYSTEMS ENGINEERING MANAGER 40 mg Given 11/25/2021 8:54 AM SYSTEMS ENGINEERING MANAGER 40 mg Given 11/24/2021 12:53 PM SYSTEMS ENGINEERING MANAGER 40 mg polyethylene glycol (MIRALAX) packet 17 g 17 g, oral, 2 times daily PRN, constipation, Starting on Wed11/25/21 at 0853, Indications: constipationIndications:constipation senna-docusate (PERICOLACE) 8.6-50 mg per tablet 2 tablet 2 tablet, oral, 2 times daily, First dose on Wed11/24/21 at 1230, Hold for diarrhea., Indications: constipationIndications:constipation Given 11/26/2021 8:17 AM SYSTEMS ENGINEERING MANAGER 2 table ts Given 11/25/2021 9:52 PM SYSTEMS ENGINEERING MANAGER 2 tablets Given 11/25/2021 8:54 AM SYSTEMS ENGINEERING MANAGER 2 tablets simethicone (MYLICON) chewable tablet 80 mg 80 mg, oral, Every 4 hours PRN, flatulence, Starting on Wed11/24/21 at 1725 sodium chloride 0.9% flush 0.5-20 mL 0.5-20 mL, intra-catheter, Every 8 hours scheduled, First dose on Wed11/24/21 at 1400, Flush volume based on line type and size. , Indications: FlushingIndications:Flushing Given 11/26/2021 6:06 AM SYSTEMS ENGINEERING MANAGER 10 mL Given 11/25/2021 9:56 PM SYSTEMS ENGINEERING MANAGER 10 mL Given 11/24/2021 9:52 PM SYSTEMS ENGINEERING MANAGER 10 mL sodium chloride 0.9% infusion 100 mL/hr, intravenous, Continuous, Starting on Wed11/24/21 at 1230, Phase I & Post-op Floor New Bag 11/24/2021 9:56 PM SYSTEMS ENGINEERING MANAGER 100 mL/hr 100 mL/hr tamsulosin (FLOMAX) extended release capsule 0.4 mg 0.4 mg, oral, Nightly, First dose on Wed11/24/21 at 2100, Do not crush, chew, cut, dissolve, open or otherwise manipulate tablet/capsule. Given 11/25/2021 9:52 PM SYSTEMS ENGINEERING MANAGER 0.4 mg Given 11/24/2021 9:50 PM SYSTEMS ENGINEERING MANAGER 0.4 mg tiZANidine (ZANAFLEX) tablet 4 mg 4 mg, oral, Nightly, First dose on Wed11/24/21 at 2100, Administer on an empty stomach Given 11/25/2021 9:51 PM SYSTEMS ENGINEERING MANAGER 4 mg Given 11/24/2021 9:52 PM SYSTEMS ENGINEERING MANAGER 4 mg traZODone (DESYREL) tablet 50 mg 50 mg, oral, Nightly, First dose on Wed11/24/21 at 2100 Given 11/25/2021 9:51 PM SYSTEMS ENGINEERING MANAGER 50 mg Given 11/24/2021 9:50 PM SYSTEMS ENGINEERING MANAGER 50 mg documented in this encounter Discontinued Medications Medication Sig Discontinue Reason Start Date End Da te oxyCODONE-acetaminophe n (PERCOCET) 10-325 mg per tabletIndications:Pain Take 1 tablet by mouth every 4 (four) hours as needed for pain 11/25/2021 11/26/2021 senna-docusate (PERICOLACE) 8.6-50 mgIndications:constipa tion Take 2 tablets by mouth 2 (two) times a day 11/25/2021 11/26/2021 aspirin 325 mg tablet Take 1 tablet (325 mg total) by mouth 2 (two) times a day Reorder 11/25/2021 11/26/2021 acetaminophen 500 mg capsuleIndications:Alfred n Take 2 capsules (1,000 mg total) by mouth every 6 (six) hours Stop Taking at Discharge 12/30/2019 11/26/2021 HYDROcodone-acetaminop hen (NORCO) 7.5-325 mg per tabletIndications:Pain Take 1 tablet by mouth every 8 (eight) hours as needed for pain Stop Taking at Discharge 11/26/2021 documented as of this encounter Active and Recently Administered Medications Times are shown in SYSTEMS ENGINEERING MANAGER. Scheduled Medication Order 11/24/2021 11/25/2021 11/26/2021 ceFAZolin (ANCEF) 1 gram/10 mL in sterile water (premix) 2,000 mg (COMPLETED) 2,000 mg, intravenous, at 400 mL/hr, Administer over 3 Minutes, Once, On Wed11/24/21 at 0800, For 1 dose, Indications: Prophylaxis, Surgical 0835 (Given - Provider: Morenita Combs CRNA) cholecalciferol (VITAMIN D-3) tablet 2,000 Units 2,000 Units, oral, Nightly, First dose on Wed11/24/21 at 2100 2151 (Given - Provider: Peter Negron) 5 (Given - Provider: Patricia Chen RN) donepeziL (ARICEPT) tablet 10 mg 10 mg, oral, Nightly, First dose on Wed11/24/21 at 2100 2149 (Given - Provider: Peter Negron) 2153 (Given - Provider: Patricia Chen, MARAH) famotidine (PEPCID) tablet 20 mg 20 mg, oral, 2 times daily, First dose on Wed11/24/21 at 1230, Indications: Heartburn 1252 (Given - Provider: Zeferino Chung RN)2149 (Given - Provider: Peter Negron) 08 (Given - Provider: Zeferino Chung RN)2153 (Given - Provider: Patricia Chen RN) 817 (Given - Provider: Meagan Alonso, MARAH) levothyroxine (SYNTHROID) tablet 150 mcg 150 mcg, oral, Daily (early AM), First dose on Wed11/25/21 at 0600, Administer on an empty stomach, preferably 30 minutes before breakfast. Take 4 hours apart from antacids, iron and calcium products. 06 (Given - Provider: Peter Negron) 604 (Given - Provider: Patricia Chen RN) magnesium oxide (MAG-OX) tablet 200 mg 200 mg, oral, Nightly, First dose on Wed11/24/21 at 2100, 1 tablet = Magnesium oxide 400 mg = 241.3 mg elemental magnesium, Indications: hypomagnesemia 2150 (Given - Provider: Peter Negron) 2151 (Given - Provider: Patricia Chen RN) oxybutynin XL (DITROPAN-XL) extended release tablet 10 mg (CANCELED) 10 mg, oral, Nightly, First dose on Wed11/24/21 at 2100, Do not crush, chew, cut, dissolve, open or otherwise manipulate tablet/capsule. 2151 (Given - Provider: Peter Negron) pantoprazole DR (PROTONIX) extended release tablet 40 mg 40 mg, oral, Daily, First dose on Wed11/24/21 at 1230, Do not crush, chew, cut, dissolve, open or otherwise manipulate tablet/capsule., Indications: Mucositis Prophylaxis 1253 (Given - Provider: Zeferino Chung RN) 0854 (Given - Provider: Zeferino Chung RN) 0818 (Given - Provider: Meagan Alonso, MARAH) senna-docusate (PERICOLACE) 8.6-50 mg per tablet 2 tablet 2 tablet, oral, 2 times daily, First dose on Wed11/24/21 at 1230, Hold for diarrhea., Indications: constipation 1252 (Given - Provider: Zeferino Chung RN)2150 (Given - Provider: Peter Negron) 0854 (Given - Provider: Zeferino Chung RN)2151 (Given - Provider: Patricia Chen RN) 0817 (Given - Provider: Meagan Alonso, MARAH) sodium chloride 0.9% flush 0.5-20 mL 0.5-20 mL, intra-catheter, Every 8 hours scheduled, First dose on Wed11/24/21 at 1400, Flush volume based on line type and size. , Indications: Flushing 1302 (Not Given - Provider: Zeferino Chung RN - Reason: IV Infusing)2151 (Given - Provider: Peter Negron) 0616 (Not Given - Provider: Peter Negron - Reason: IV Infusing)1326 (Not Given - Provider: Zeferino Chung RN - Reason: IV Infusing)2155 (Given - Provider: Patricia Chen RN) 0606 (Given - Provider: Patricia Chen RN)1309 (Not Given - Provider: Meagan Alonso, MARAH - Reason: Patient/family refused) tamsulosin (FLOMAX) extended release capsule 0.4 mg 0.4 mg, oral, Nightly, First dose on Wed11/24/21 at 2100, Do not crush, chew, cut, dissolve, open or otherwise manipulate tablet/capsule. 2149 (Given - Provider: Peter Negron) 2151 (Given - Provider: Patricia Chen, MARAH) tiZANidine (ZANAFLEX) tablet 4 mg 4 mg, oral, Nightly, First dose on Wed11/24/21 at 2100, Administer on an empty stomach 2151 (Given - Provider: Peter Negron) 2150 (Given - Provider: Patricia Chen, AMRAH) traZODone (DESYREL) tablet 50 mg 50 mg, oral, Nightly, First dose on Wed11/24/21 at 2100 2149 (Given - Provider: Peter Negron) 2151 (Given - Provider: Patricia Chen, MARAH) Continuous Medication Order 11/24/2021 11/25/2021 11/26/2021 Lactated Ringer's (LR) infusion 30 mL/hr, intravenous, Continuous, Starting on Wed11/24/21 at 0745 0824 (New Bag - Provider: Morenita Combs CRNA)1008 (Paused - Provider: Morenita Combs CRNA - Comment: Switch to gravity)1009 (Restarted - Provider: Morenita Combs CRNA)1101 (New Bag - Provider: Xiomy Alexis RN) sodium chloride 0.9% infusion 100 mL/hr, intravenous, Continuous, Starting on Wed11/24/21 at 1230, Phase I & Post-op Floor 1255 (Not Given - Provider: Zeferino Chung RN - Reason: IV Infusing)2156 (New Bag - Provider: Peter Negron) PRN Medication Order 11/24/2021 11/25/2021 11/26/2021 bupivacaine (MARCAINE) 0.25 % (2.5 mg/mL) preservative free injection (CANCELED) As needed, Starting on Wed11/24/21 at 0856, Intra-Op 0856 (Given - Provider: George Sepulveda MD)0857 (Given - Provider: George Sepulveda MD - Comment: left knee injection) ketorolac (TORADOL) 15 mg/mL injection 15 mg 15 mg, intravenous, Every 6 hours PRN, 2nd line for pain, Starting on Wed11/24/21 at 1149, For 5 days, For Adult IV push, administer over 15 seconds 1300 (Given - Provider: Zeferino Chung RN) 0854 (Given - Provider: Zeferino Chung RN)1718 (Given - Provider: Zeferino Chung RN) 1050 (Given - Provider: Meagan Alonso, MARAH) methylPREDNISolone acetate (DEPO-medrol) injection (CANCELED) As needed, Starting on Wed11/24/21 at 0857, Intra-Op 0857 (Given - Provider: George Sepulveda MD - Comment: left knee injection) ondansetron (ZOFRAN) injection 4 mg(Linked Group 1) 4 mg, intravenous, Administer over 2 Minutes, Every 6 hours PRN, nausea, vomiting, if not tolerating PO, Starting on Wed11/24/21 at 0723, Indications: nausea and vomiting 1718 (Given - Provider: Kavita Adams, RN) ondansetron ODT (ZOFRAN-ODT) disintegrating tablet 4 mg(Linked Group 1) 4 mg, oral, Every 6 hours PRN, nausea, vomiting, Starting on Wed11/24/21 at 0723, Indications: nausea and vomiting 1718 (See Alternative - Provider: Kavita Adams, RN) oxyCODONE-acetaminophen (PERCOCET) 10-325 mg per tablet 1 tablet 1 tablet, oral, Every 4 hours PRN, 1st line for pain, Starting on Wed11/24/21 at 1149, Indications: Pain 1628 (Given - Provider: Zeferino Chung RN)2156 (Given - Provider: Peter Negron) 0156 (Given - Provider: Peter Negron)0617 (Given - Provider: Peter Negron)1054 (Given - Provider: Zeferino Chung RN)1549 (Given - Provider: Mary Ellen Quinn, MARAH)2215 (Given - Provider: Patricia Chen RN) 0456 (Given - Provider: Patricia Chen, MARAH)0858 (Given - Provider: Meagan Alonso, RN)1310 (Given - Provider: Meagan Alonso, MARAH) polyethylene glycol (MIRALAX) packet 17 g 17 g, oral, 2 times daily PRN, constipation, Starting on Wed11/25/21 at 0853, Indications: constipation polymyxin B injection (CANCELED) As needed, Starting on Wed11/24/21 at 0856, Intra-Op 0856 (Given - Provider: George Sepulveda MD - Comment: in 3000ml nacl) simethicone (MYLICON) chewable tablet 80 mg 80 mg, oral, Every 4 hours PRN, flatulence, Starting on Wed11/24/21 at 1725 sodium chloride 0.9% flush 0.5-20 mL 0.5-20 mL, intra-catheter, As needed, line care, Starting on Wed11/24/21 at 1149, Flush volume based on line type and size. Flush before and after each use. , Indications: Flushing sodium chloride 0.9% irrigation (CANCELED) As needed, Starting on Wed11/24/21 at 0856, Intra-Op 0854 (Given - Provider: George Sepulveda MD - Comment: availble for aquamantis)0856 (Given - Provider: George Sepulveda MD)0857 (Given - Provider: George Sepulveda MD - Comment: available on field) vancomycin (VANCOCIN) solution (CANCELED) As needed, Starting on Wed11/24/21 at 0857, Intra-Op 0857 (Given - Provider: George Sepulveda MD - Comment: in 3000ml nacl) Linked Groups Order Group 1: ondansetron ODT (ZOFRAN-ODT) disintegrating tablet 4 mgJump to med 4 mg, oral, Every 6 hours PRN, nausea, vomiting, Starting on Wed11/24/21 at 0723, Indications: nausea and vomiting Or ondansetron (ZOFRAN) injection 4 mgJump to med 4 mg, intravenous, Administer over 2 Minutes, Every 6 hours PRN, nausea, vomiting, if not tolerating PO, Starting on Wed11/24/21 at 0723, Indications: nausea and vomiting documented in this encounter Orders Medications Ordered That Te ht Not Have Been Administered Count Last Ordered Date First Ordered Date polyethylene glycol (MIRALAX) packet 17 g 2 11/25/2021 11/24/2021 bupivacaine (MARCAINE) 0.25 % (2.5 mg/mL) preservative free injection 1 11/24/2021 ceFAZolin (ANCEF) 1 gram/10 mL in sterile water (premix) - ADS Override Pull 1 11/24/2021 ceFAZolin (ANCEF) 1 gram/10 mL in sterile water (premix) 2,000 mg 1 11/24/2021 diphenhydrAMINE (BENADRYL) i njection 12.5 mg 1 11/24/2021 fentaNYL (SUBLIMAZE) preserv ative free injection 25 mcg 1 11/24/2021 Lactated Ringer's (LR) infus ion - ADS Override Pull 1 11/24/2021 methylPREDNISolone acetate ( DEPO-medrol) injection 1 11/24/2021 naloxone (NARCAN) 0.4 mg/mL injection 0.04-0.4 mg 1 11/24/2021 ondansetron (ZOFRAN) injection 4 mg 1 11/24 ondansetron ODT (ZOFRAN-ODT) disintegrating tablet 4 mg 1 11/24/2021 polymyxin B injection 1 11/24/2021 simethicone (MYLICON) chewab le tablet 80 mg 1 11/24/2021 sodium chloride 0.9% flush 0.5-20 mL 2 11/11 sodium chloride 0.9% irrigation 1 vancomycin (VANCOCIN) solution 1 11/24/2021 General Supply Count Last Ordered Date First Or dered Date WALKER 1 11/26/2021 Consult Count Last Ordered Date First Orde red Date IP CONSULT TO UROLOGY 1 11/25/2021 IP CONSULT TO SOCIAL WORK 1 11/24/2021 CORE MEASURES Count Last Ordered Date First Ord ered Date REASON FOR NO VTE PROPHYLAXI S - HOSPITAL ADMISSION - MEDICATIONS 1 11/24/2021 documented in this encounter Care Teams Casting And Locker Room Servicer Relationship Specialty [place] [address] [address] [place] [address] PCP - General 11/12/16 03/11/22 documented as of this encounter
--- OUTSIDE RECORDS SUMMARY | 2024-10-11 02:00 | XMS_ITS | Encounter Summary ---
Author Organization [facility] Healthcare Address [address] [place] [address] Care Team Providers Care Recruitment Director Name Role Phone Santino Funk MD Primary Care Provider + Encounter Details Date Type Department Care Team (Late st Contact Info) Description 11/21/2021 5:05 PM HYPO SPLASHER Lab [address] [phone] Pre-procedure lab exam Social History Tobacco Use Types Packs/Day Years Used Date Smoking Tobacco: Former Cigarettes 6 1966 Smokeless Tobacco: Never Alcohol Use Standard Drinks/Week Comments Yes 1 (1 standard drink = 0.6 oz pur e alcohol) AUDIT-C Answer Date Recorded Q1: How often [...] on file Legal Sex Male 3:25 PM HYPO SPLASHER Gender Identity Not on file Sexual Orientation Not on file documented as of this encounter Plan of Treatment Upcoming Encounters Date Type Department Care Team (Latest Contact Info) Description 10/23/2024 10:00 AM HYPO SPLASHER Hospital Encounter [facility] Operating Room [address] [place] [address] [place] [address] [place] [address] [facility] [address] [place] [address] 10/23/2024 10:00 AM HYPO SPLASHER - 10/23/2024 1:00 PM HYPO SPLASHER Surgery [facility] Operating Room [address] [place] [address] [place] [address] [address] ARTHROPLASTY TOTAL KNEE LEFT Scheduled Procedures Name Priority Associated Diagnoses Date/Ti me ARTHROPLASTY TOTAL KNEE left knee osteoarthritis 10/23/2024 10:00 AM HYPO SPLASHER ESOPHAGOGASTRODUODENOSCOPY Dysphagia, unspecified type documented as of this encounter Procedures Procedure Name Priority Date/Time Associated Diagnosis Comments COVID-19 CORONAVIRUS RNA Routine 11/21/2021 3:00 PM HYPO SPLASHER Pre-procedure lab exam documented in this encounter Results * COVID-19 Coronavirus RNA Nasopharyngeal (11/21/2021 3:00 PM HYPO SPLASHER) COVID-19 RNA Not Detected MARVIN FISHER Comment: Interpretive Data Synonyms for this test include: PCR and NAAT . ??Testing performed by the [facility] Infectious Disease [facility]. The 2019-Novel Coronavirus Assay (COVID-19) Real Time RT-PCR assay is for in vitro diagnostic use under FDA emergency use authorization only. A negative RT-PCR result does not preclude infection with COVID-19 and should not be used as the sole basis for treatment or other patient management decisions. ??Additional sample types have been validated according to CLIA regulations. ?? Current Interpretive Data was last revised on November 14, 2020. Testing performed by: [facility], [address] [facility] [place]., [address] First COVID-19 test? Unknown CERDEE CH Comment:Testing performed by : [facility], [address] [place]., [address] Employeed in healthcare? Unknown CERNER CH Comment:Testing performed by : [facility], [address] [place]., [address] Group care resident? Unknown MARVIN Comment:Testing performed by : [facility], [address] [place]., [address] Hospitalized? No MARVIN CH Comment:Testing performed by : [facility], [address] [place]., [address] Is patient in ICU? No ANYNER CH Comment:Testing performed by : [facility], [address] [facility], [address] Symptomatic as defined by CDC? No MARVIN Comment:Testing performed by : [facility], [address] [place]., [address] Nasopharyngeal 11/21/2021 3: 00 PM HYPO SPLASHER 11/21/2021 9:55 PM HYPO SPLASHER Narrative MARVIN - 11/22/2021 3:28 AM HYPO SPLASHER What is the reason for testing?->Screening prior to scheduled??procedure or surgery??(Batched) Giulia [facility] MICROBIOLOGY - GENERAL O RDERABLES Final Result [facility] [address] [place] [address] documented in this encounter Visit Diagnoses Diagnosis Pre-procedure lab exam Pre-procedural laboratory examination documented in this encounter Care Teams Recruitment Director Relationship Specialty [place] [address] [address] [facility] [address] [place] [address] PCP - General 11/12/16 03/11/22 documented as of this encounter
--- OUTSIDE RECORDS SUMMARY | 2024-10-11 02:00 | XMS_ITS | Encounter Summary ---
Author Organization [facility] Medical Group Address [address] [facility] [address] [place] [address] Care Team Providers Care Resource Teacher Name Role Phone Santino Funk MD Primary Care Provider + Reason for Visit * Reason Comments Alzheimer's Disease Encounter Details Date Type Department Care Team (Late st Contact Info) Description 09/11/2021 1:30 PM R PROGRAMMER Office Visit [facility] [id number] [place] [address] [address], [place] [address] Nayan Mahajan II, [place] [id number] [place] [address] [address], [place] [address] Alzheimer's disease (HCC) (Primary Dx); Essential tremor; Restless leg syndrome; Nocturnal muscle cramp; Nocturia; Late onset Alzheimer's disease without behavioral disturbance [...] relatives? Three times a week 11/25/2021 Attends [employer] Not on file 11/25 Active Member [...] slept in a [facility] (including now)? No 11/25/2021 Sex and Gender Information Value Date Recorded Sex Assigned at Not on file Legal Sex Male 3:25 PM R PROGRAMMER Gender Identity Not on file Sexual Orientation Not on file documented as of this encounter Last Filed Vital Signs Vital Sign Reading Time Taken Comments Blood Pressure 120/78 09/11/2021 1:37 PM R PROGRAMMER Pulse 86 09/11/2021 1:37 PM R PROGRAMMER Temperature - - Respiratory Rate 12 09/11/2021 1:37 PM R PROGRAMMER Oxygen Saturation - - Inhaled Oxygen Concentration - - Weight 92.1 kg (203 lb 2.5 oz) 09/11/2021 1:37 P M R PROGRAMMER Height 180.3 cm (5' 11 ) 09/11/2021 1:37 PM R PROGRAMMER Body Mass Index 28.33 09/11/2021 1:37 PM R PROGRAMMER documented in this encounter Ordered Prescriptions Prescription Sig Dispense Quantity Refills Last Filled Start Date End Date donepeziL (ARICEPT) 10 mg tabletIndications: 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) Take 1 tablet (10 mg total) by mouth nightly 30 tablet 5 09/11/2021 2 tiZANidine (ZANAFLEX) 2 mg tablet Take 2 tablets (4 mg total) by mouth nightly 1 to 2 tablets at bedtime 60 tablet 5 09/11/2021 2 documented in this encounter Progress Notes * Nayan Mahajan II, MD - 09/11/2021 1:30 PM CST Subjective: Patient ID: Abrahan Gtz Jr. is a 76 y.o. male dementia of the Alzheimer's type essential tremor restless leg syndrome muscle cramps. HPI This patient left the practice over a year ago because of a change in insurance. He saw another neurologist he now has new insurance and is back in the practice. He is having issues with muscle cramping. He was previously on tizanidine which she feels have been of benefit. He has restless leg syndrome and was also previously on pramipexole but this has not been reviewed. His other complaints include severe joint pain for which she is seeing Dr. Sepulveda and is due for right total knee arthroplasty. He also complains of difficulty sleeping at night because of increased frequency of urination numbness and tingling and weakness of the legs. Otherwise there are no other complaints he is now working at [employer] Constitutional: Negative for activity [...] allergies, food allergies and immunocompromised state. Neurological: Positive for tremors and numbness. Negative for dizziness, seizures, syncope, facial asymmetry, speech difficulty, weakness, light- headedness and headaches. Hematological: Negative for adenopathy. Does not bruise/bleed easily. Psychiatric/Behavioral: Negative for agitation, behavioral problems, confusion, decreased concentration, dysphoric mood and hallucinations. The patient is not nervous/anxious. Objective: Neurological Exam Mental Status Awake, alert and oriented to person, place and time. Recalls 3 [...] Tongue midline without atrophy or fasciculations. Motor The following abnormal movements were seen: Strength is 5/5 throughout all four extremities. Minimal tremor of the outstretched hands. Sensory Sensation is intact to light touch, pinprick, vibration and proprioception in all four extremities. Reflexes Deep tendon reflexes are 2+ and symmetric in all four extremities with downgoing toes bilaterally. Coordination Mzwxlj-is-jswy, rapid alternating movements and ldxx-iw-fcmf normal bilaterally without dysmetria. Gait Antalgic. Physical Exam Vitals reviewed. Constitutional: Appearance: Normal [...] edema. Skin: General: Skin is warm. Neurological: Coordination: Coordination is intact. Deep Tendon Reflexes: Strength normal and reflexes are normal and symmetric. Psychiatric: Speech: Speech normal. Assessment/Plan: 1. Nocturnal cramps tizanidine will be refilled at a dose of 4 mg tablets 1-2 tablets at bedtime. 2. Restless leg syndrome 3. Numbness and tingling of the lower extremities he was given samples of Horizant 600 mg tablets a total of 2 tablets to be taken at bedtime if of benefit a prescription will be sent. He will let me know if he finds benefit from this medication I did not refill is primary tricks all and because of academy of Neurology recommendations or I sent was prescribed. 4. Dementia of the Alzheimer's type the condition has not progressed donepezil will be refilled. He complains of increased urinary frequency at night is already on Ditropan 10 mg ended release which she takes every morning I recommended he talk to Dr. Funk regarding this complaint otherwise afollow-up is planned in 6 months. Medications Current Outpatient Medications: ??? docusate sodium (COLACE) 100 mg capsule, Take 1 capsule (100 mg total) by mouth 2 (two) times aday., Disp: 30 capsule, Rfl: 0 ??? HYDROcodone-acetaminophen (NORCO) 7.5-325 mg per tablet, Take 1 tablet by mouth every 6 (six) hours as needed for pain, Disp: , Rfl: ??? levothyroxine (SYNTHROID) 125 mcg tablet, Take 150 mcg by mouth curriculum development manager before breakfast , Disp: , Rfl: ??? omeprazole (PriLOSEC) 20 mg capsule, take 1 capsule by oral route every day before a meal (Patient taking differently: Take 20 mg by mouth 2 (two) times a day ), Disp: 0, Rfl: 0 ??? tamsulosin (FLOMAX) 0.4 mg extended release capsule, TK 1 C PO QD, Disp: , Rfl: ??? tiZANidine (ZANAFLEX) 2 mg tablet, Take 2 tablets (4 mg total) by mouth nightly 1 to 2 tablets at bedtime, Disp: 60 tablet, Rfl: 5 ??? traZODone (DESYREL) 50 mg tablet, , Disp: , Rfl: ??? acetaminophen 500 mg capsule, Take 2 capsules (1,000 mg total) by mouth every 6 (six) hours (Patient taking differently: Take 650 mg by mouth every 6 (six) hours ), Disp: 30 tablet, Rfl: 1 ??? cholecalciferol (VITAMIN D-3) 2000 unit capsule, Take 1 capsule (2,000 Units total) by mouth daily, Disp: 30 capsule, Rfl: 3 ??? donepeziL (ARICEPT) 10 mg tablet, Take 1 tablet (10 mg total) by mouth nightly, Disp: 30 tablet, Rfl: 5 ??? oxybutynin XL (DITROPAN-XL) 5 mg 24 hr tablet, Take 10 mg by mouth 3 (three) times a day , Disp: , Rfl: ??? turmeric root extract 500 mg capsule, Take by mouth, Disp: , Rfl: History Family History Problem [...] fracture of condyle of left femur (CMS/HCC) ([facility]) 08/30/2018 ??? Closed fracture of left tibial [...] skin or subcutaneous tissue ??? Seizures (CMS/HCC) (HCC) 1997 ??? SOB (shortness of breath) on [...] No ??? Sexual activity: Not on file Other Topics Concern ??? Not on file Social History Narrative Caffeine use : (Added by TW Conv) Consumes alcohol : (Added by TW Conv) Social Determinants of Health Financial Resource Strain: Not on file Food Insecurity: Not on file Transportation Needs: Not on file Physical Activity: Not on file Stress: Not on file Social Connections: Not on file Intimate Partner Violence: Not on file Housing Stability: Not on file R PROGRAMMER documented in this encounter Plan of Treatment Upcoming Encounters Date Type Department Care Team (Latest Contact Info) Description 10/23/2024 10:00 AM R PROGRAMMER Hospital Encounter [facility] Operating Room [address] [place] [address] [place] [address] [address] 10/23/2024 10:00 AM R PROGRAMMER - 10/23/2024 1:00 PM [facility] Surgery [facility] Operating Room [address] [place] [address] [place] [address] [facility] [address] [place] [address] ARTHROPLASTY TOTAL KNEE LEFT Scheduled Procedures Name Priority Associated Diagnoses Date/Ti me ARTHROPLASTY TOTAL KNEE left knee osteoarthritis 10/23/2024 10:00 AM R PROGRAMMER ESOPHAGOGASTRODUODENOSCOPY Dysphagia, unspecified type documented as of this encounter Visit Diagnoses Diagnosis Alzheimer's disease (HCC)- Primary Alzheimer's disease Essential tremor Restless leg syndrome Restless legs syndrome (RLS) Nocturnal muscle cramp Nocturia 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) documented in this encounter Discontinued Medications Medication Sig Discontinue Reason Start Date End Da te oxyCODONE (ROXICODONE) 5 mg immediate release tabletIndications:Pain Take 1 tablet (5 mg total) by mouth every 4 (four) hours as needed for pain Alternate therapy 12/30/2019 09/11/2021 bismuth subsalicylate (PEPTO-BISMOL) suspension Take 15 mL by mouth every 6 (six) hours as needed for indigestion Therapy completed 09/11/2021 aspirin-sodium bicarbonate-citric acid (ELIUD-SELTZER) 324 mg tablet, effervescent Take 325 mg by mouth daily as needed (upset stomach) Therapy completed 09/11/2021 guaifenesin/pseudoephed rne HCl (MUCINEX D MAXIMUM STRENGTH ORAL)Indications:cough Take 15 mL by mouth daily as needed Therapy completed 09/11/2021 polyethylene glycol (MIRALAX) 17 gram/dose powderIndications:const ipation Mix 1 scoop (17 g) in 8 oz of water and drink daily. Therapy completed 12/10/2018 09/11/2021 pramipexole (MIRAPEX) 0.125 mg tablet 1-2 tablet nightly Therapy completed 09/11/2021 sildenafil, antihypertensive, (REVATIO) 20 mg tabletIndications:erect ile dysfunction Take 20 mg by mouth daily as needed Therapy completed 11/11/2018 09/11/2021 tadalafiL (CIALIS) 20 mg tabletIndications:Erect ile dysfunction, unspecified erectile dysfunction type Take 1 tablet (20 mg total) by mouth daily as needed for erectile dysfunction Therapy completed 09/10/2020 09/11/2021 temazepam (RESTORIL) 30 mg capsule TK ONE C PO QHS PRN Therapy completed 09/04/2020 09/11/2021 triamcinolone (KENALOG) 0.1 % cream APPLY TID ON THE SKIN PRN Therapy completed 01/29/2020 09/11/2021 UNABLE TO FIND Take 1 each by mouth daily as needed Z Quil cough syrup Therapy completed 09/11/2021 Ventolin HFA 90 mcg/actuation inhaler Inhale 2 puffs every 4 (four) hours as needed for wheezing Therapy completed 11/11/2019 09/11/2021 tiZANidine (ZANAFLEX) 2 mg tablet Take 2 tablets (4 mg total) by mouth nightly 1 to 2 tablets at bedtime Reorder 08/26/2020 09/11/2021 donepeziL (ARICEPT) 10 mg tabletIndications: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) Take 1 tablet (10 mg total) by mouth nightly Reorder 10/07/2020 09/11/2021 documented as of this encounter Additional Health Concerns Infection Onset Date Last Indicated Resolved Time COVID: Suspected 12/17/2021 12/17/2021 12/17/2021 10:19 PM R PROGRAMMER documented as of this encounter Care Teams Resource Teacher Relationship Specialty [place] [address] [address] [facility] [place] [address] PCP - General 11/12/16 03/11/22 documented as of this encounter
--- OUTSIDE RECORDS SUMMARY | 2024-10-11 02:00 | XMS_ITS | Encounter Summary ---
Author Organization [facility] Medical Group Address [address] [facility] [address] [place] [address] Care Team Providers Care Solar Field Service Technician Name Role Phone Santino Funk MD Primary Care Provider + Encounter Details Date Type Department Care Team (Late st Contact Info) Description 08/25/2021 Telephone [facility] [address] [address] [place] [address] [address] Social History Tobacco Use Types Packs/Day Years Used Date Smoking Tobacco: Former Cigarettes 1 966 - 0397 Smokeless Tobacco: Never Alcohol Use Standard Drinks/Week Comments Yes 1 (1 standard drink = 0.6 oz pur e alcohol) PHQ-2 Answer Date Recorded PHQ-2 Score 0 12/12/2018 Sex and Gender Information Value Date Recorded Sex Assigned at Not on file Legal Sex Male 3:25 PM EXPLORATION DRILLER Gender Identity Not on file Sexual Orientation Not on file documented as of this encounter Miscellaneous Notes * Telephone Encounter - Becky Espinal PA - 08/25/2021 3:41 PM EXPLORATION DRILLER Spoke w/pt and all questions answered. ORATION DRILLER * Telephone Encounter - Becky Espinal PA - 08/25/2021 3:28 PM EXPLORATION DRILLER Left message for patient to call back. ORATION DRILLER * Telephone Encounter - Joana Suresh - 08/25/2021 2:35 PM CST Patient c/o blt knee pain, last injection was 08/22. Patient was informed injection becomes effective in about 7 days but patient requesting a return call. [phone] ORATION DRILLER documented in this encounter Plan of Treatment Upcoming Encounters Date Type Department Care Team (Latest Contact Info) Description 10/23/2024 10:00 AM EXPLORATION DRILLER Hospital Encounter [facility] Operating Room [address] [place] [address] [place] [address] [address] 10/23/2024 10:00 AM EXPLORATION DRILLER - 10/23/2024 1:00 PM EXPLORATION DRILLER Surgery [facility] Operating Room [address] [place] [address] [place] [address] [address] ARTHROPLASTY TOTAL KNEE LEFT Scheduled Procedures Name Priority Associated Diagnoses Date/Ti me ARTHROPLASTY TOTAL KNEE left knee osteoarthritis 10/23/2024 10:00 AM EXPLORATION DRILLER ESOPHAGOGASTRODUODENOSCOPY Dysphagia, unspecified type documented as of this encounter Visit Diagnoses Not on filedocumented in this encounter Care Teams Solar Field Service Technician Relationship Specialty [place] [address] [address] PCP - General 11/12/16 03/11/22 documented as of this encounter
--- OUTSIDE RECORDS SUMMARY | 2024-10-11 02:00 | XMS_ITS | Encounter Summary ---
Author Organization [facility] Address [address] [place] [address] Care Team Providers Care Director Of Physical Education Name Role Phone Santino Funk MD Primary Care Provider + Reason for Referral * Procedure (Routine) - Closed Specialty Diagnoses / Procedures Referred By Contac t Referred To Contact Diagnoses Primary osteoarthritis of right knee Procedures Large Joint (Hip, Knee, Shoulder) [place]: [place] [id number] [facility] [address] [place] [address] Phone: tel: fax: [facility] Referral ID Status Reason Start Date Expiration Date Visits Re quested Visits Authorized [id number] Closed 10/14/2020 11/13/2021 1 1 CAL PATHOLOGY TEACHER * Procedure (Routine) - Closed Specialty Diagnoses / Procedures Referred By Contac t Referred To Contact Diagnoses Primary osteoarthritis of left knee Procedures Large Joint (Hip, Knee, Shoulder) [place]: [place] [id number] [facility] [address] [place] [address] Phone: tel: fax: [facility] Referral ID Status Reason Start Date Expiration Date Visits Re quested Visits Authorized [id number] Closed 10/14/2020 11/13/2021 1 1 CAL PATHOLOGY TEACHER Reason for Visit * Reason Comments Pain Injections Pain Injections Encounter Details Date Type Department Care Team (Latest Contact Info) Description 10/14/2020 10:45 AM MEDICAL PATHOLOGY TEACHER Office Visit [facility] [id number] [id number] [place] [id number] [id number] Primary osteoarthritis of left knee [...] on file Legal Sex Male 3:25 PM MEDICAL PATHOLOGY TEACHER Gender Identity Not on file Sexual Orientation Not on file documented as of this encounter Last Filed Vital Signs Vital Sign Reading Time Taken Comments Blood Pressure - - Pulse - - Temperature 36.2 ??C (97.1 ??F) 10/14/2020 11:[address] Respiratory Rate - - Oxygen Saturation - - Inhaled Oxygen Concentration - - Weight 101.6 kg (224 lb) 10/14/2020 11:06 AM MEDICAL PATHOLOGY TEACHER Height 180.3 cm (5' 11 ) 10/14/2020 11:06 AM MEDICAL PATHOLOGY TEACHER Body Mass Index 31.24 10/14/2020 11:06 AM MEDICAL PATHOLOGY TEACHER documented in this encounter Progress Notes * Carol Aceves PA - 10/14/2020 10:45 AM CSTAssociated Order(s): Large Joint (Hip, Knee, Shoulder) Injection: R knee; Large Joint (Hip, Knee, Sh oulder) Injection: L knee Post-Procedure Diagnose(s): Primary osteoarthritis of left knee; Primary osteoarthritis of right knee Images from the original note were not included. FOLLOW UP VISIT Subjective CHIEF COMPLAINT He had concerns including Pain and Injections of the Right Knee and Pain and Injections of the LeftKnee. HISTORY OF PRESENT ILLNESS This is a 76-year-old male who is here today to be re-evaluated for bilateral knee osteoarthritis for possible injections. His last injections were July 11. He is now just over 3 months out from this. He states that this is starting to bother him again. He would like to go ahead and have injections again. He states that he gets fairly good relief initially from the injections but this does wear off. He notes no other changes at this time. Pain Assessment Pain Assessment: 0-10 Pain Score: 9 Pain Location: Knee Pain Orientation: Right, Left Pain Descriptors: Sharp Pain Frequency: Constant/continuous Pain Onset: Ongoing Clinical Progression: Gradually worsening Aggravating Factors: Stairs, Squatting Result of Injury: No MEDICATIONS He has a current medication list which includes the following prescription(s): acetaminophen, aspirin-sodium bicarbonate-citric acid, bismuth subsalicylate, cholecalciferol, docusate sodium, donepezil, guaifenesin/pseudoephedrne hcl, hydrocodone-acetaminophen, levothyroxine, omeprazole, oxybutynin xl, oxycodone, polyethylene glycol, pramipexole, sildenafil (pulm.hypertension), tadalafil, tamsulosin, temazepam, tizanidine, triamcinolone, turmeric root extract, UNABLE TO FIND, and ventolin hfa. REVIEW OF SYSTEMS Review of Systems Constitutional: [...] for difficulty urinating, enuresis and urgency. Musculoskeletal: Positive for arthralgias, gait problem and joint swelling. See HPI Skin: Negative for rash. Neurological: Negative for seizures and weakness. Hematological: Does not bruise/bleed easily. Psychiatric/Behavioral: Negative for dysphoric mood. The patient is not nervous/anxious. Objective PHYSICAL EXAM Temp 36.2 ??C (97.1 ??F) Ht 180.3 cm (5' 11 ) Wt 101.6 kg (224 lb) BMI 31.24 kg/m?? Ortho Exam He is alert and oriented x3. He is in no acute distress. He is cooperative with the exam. He has very small effusions bilaterally. He has tenderness to palpation along the joint lines bilaterally. Hehas fairly well-preserved range of motion from maybe a degree or 2 from full extension to approximately 120?? of flexion bilaterally. He is somewhat slow to rise from a seated position. He is currently ambulating fairly easily but occasionally limping. He appears neurovascularly intact. I do not appreciate any significant difficulty with ankle range of motion. REVIEW OF X-RAYS/STUDIES/LABS None today. Assessment/Plan Abrahan was seen today for pain, injections, pain and injections. Diagnoses and all orders for this visit: Primary osteoarthritis of left knee Primary osteoarthritis of right knee Large Joint (Hip, Knee, Shoulder) Injection: L [...] complications Large Joint (Hip, Knee, Shoulder) Injection: R knee Performed by: Carol Aceves PA Authorized by: Carol Aceves PA Large Joint Injection/Aspiration: Consent Given by: Patient Site marked: the procedure site was marked Verbal consent obtained: Yes Supporting Documentation: Indications: Pain and joint swelling Procedure Details: Location: Knee Site: R knee Needle Size: 22 G Approach: Anterolateral Medications: 4 mL lidocaine 20 mg/mL (2 %); 80 mg methylPREDNISolone acetate 80 mg/mL Patient tolerance: Patient tolerated the procedure well with no immediate complications PLAN This is a 76-year-old male who is here today to be re-evaluated for bilateral knee osteoarthritis for injections. He verbalized understanding of his risks and benefits of injection. We then proceededwith the injections as above. He tolerated these well and without complication. He knows that he can have them every 3-4 months as he needs them. We will see how he does with this set. He was just over 3 months from his last set to today. He knows that if these stop working for him, that we will get new x-rays and see how his knees are doing radiographically as well as clinically. He knows to call with any further questions or concerns. LORI Herman Cosigned by George Sepulveda MD at 10/14/2020 3:26 PM MEDICAL PATHOLOGY TEACHER CAL PATHOLOGY TEACHER CAL PATHOLOGY TEACHER documented in this encounter Plan of Treatment Upcoming Encounters Date Type Department Care Team (Latest Contact Info) Description 10/23/2024 10:00 AM MEDICAL PATHOLOGY TEACHER Hospital Encounter Operating Room [address] [place] [id number] [place] [id number] [address] 10/23/2024 10:00 AM MEDICAL PATHOLOGY TEACHER - 10/23/2024 1:00 PM MEDICAL PATHOLOGY TEACHER Surgery Operating Room [address] [place] [id number] [place] [id number] [id number] ARTHROPLASTY TOTAL KNEE LEFT Scheduled Procedures Name Priority Associated Diagnoses Date/Ti me ARTHROPLASTY TOTAL KNEE left knee osteoarthritis 10/23/2024 10:00 AM MEDICAL PATHOLOGY TEACHER ESOPHAGOGASTRODUODENOSCOPY Dysphagia, unspecified type documented as of this encounter Procedures Procedure Name Priority Date/Time Associated Diagnosis Comments MI ARTHROCENTESIS ASPIR&/INJ MAJOR JT/BURSA W/O US Routine 10/14/2020 10:45 AM MEDICAL PATHOLOGY TEACHER Primary osteoarthritis of right knee MI ARTHROCENTESIS ASPIR&/INJ MAJOR JT/BURSA W/O US Routine 10/14/2020 10:45 AM MEDICAL PATHOLOGY TEACHER Primary osteoarthritis of left knee documented in this encounter Results * MI ARTHROCENTESIS ASPIR&/INJ MAJOR JT/BURSA W/O US (10/14/2020 10:45 AM MEDICAL PATHOLOGY TEACHER) Narrative George Sepulveda MD - 10/14/2020 10:45 AM MEDICAL PATHOLOGY TEACHER Carol Aceves PA ? 10/14/2020 ??2:51 PM Large Joint (Hip, Knee, Shoulder) Injection: R knee Performed by: Carol Aceves PA Authorized by: Carol Aceves PA Large Joint Injection/Aspiration: ??Consent Given by: ??Patient ??Site marked: the procedure site was marked ?Verbal consent obtained: Yes ?? Supporting Documentation: ??Indications: ??Pain and joint swelling Procedure Details: ??Location: ??Knee ??Site: ??R knee ??Needle Size: ??22 G ??Approach: ??Anterolateral ??Medications: ??4 mL lidocaine 20 mg/mL (2 %); 80 mg methylPREDNISolone acetate 80 mg/mL ??Patient tolerance: ??Patient tolerated the procedure well with no immediate complications us Carol SANDOVAL IN CLINIC/BEDSIDE ORDERABLES Final Result * MI ARTHROCENTESIS ASPIR&/INJ MAJOR JT/BURSA W/O US (10/14/2020 10:45 AM MEDICAL PATHOLOGY TEACHER) Narrative George Sepulveda MD - 10/14/2020 10:45 AM MEDICAL PATHOLOGY TEACHER Carol Aceves PA ? 10/14/2020 ??2:51 PM Large Joint (Hip, Knee, Shoulder) Injection: [...] mL 4 mL, One-Time Injection, Starting on Wed10/14/20 at 1451, For 1 doseIndications:Primary osteoarthritis of left knee Given 10/14/2020 2:51 PM MEDICAL PATHOLOGY TEACHER 4 mL lidocaine (XYLOCAINE) 20 mg/mL (2 %) preservative free injection 4 mL 4 mL, One-Time Injection, Starting on Wed10/14/20 at 1451, For 1 doseIndications:Primary osteoarthritis of right knee Given 10/14/2020 2:51 PM MEDICAL PATHOLOGY TEACHER 4 mL methylPREDNISolone acetate (DEPO-medrol) injection 80 mg 80 mg, intra-articular, One-Time Injection, Starting on Wed10/14/20 at 1451, For 1 doseIndications:Primary osteoarthritis of left knee Given 10/14/2020 2:51 PM MEDICAL PATHOLOGY TEACHER 80 mg methylPREDNISolone acetate (DEPO-medrol) injection 80 mg 80 mg, intra-articular, One-Time Injection, Starting on Wed10/14/20 at 1451, For 1 doseIndications:Primary osteoarthritis of right knee Given 10/14/2020 2:51 PM MEDICAL PATHOLOGY TEACHER 80 mg documented in this encounter Care Teams Director Of Physical Education Relationship Specialty [place] [id number] [facility] [place] [address] PCP - General 11/12/16 03/11/22 documented as of this encounter
--- OUTSIDE RECORDS SUMMARY | 2024-10-11 02:00 | XMS_ITS | Encounter Summary ---
Author Organization [facility] Healthcare Address [address] [place] [address] Care Team Providers Care Mold Bunch Trimmer Name Role Phone Santino Funk MD Primary Care Provider + Encounter Details Date Type Department Care Team (Late st Contact Info) Description 11/24/2021 8:30 AM PROCESS CONTROLS TECHNICIAN - 11/24/2021 10:30 AM [facility] Surgery [facility] Operating Room [address] [place] [address] George Sepulveda MD [address] [place] [id number] ARTHROPLASTY TOTAL RIGHT KNEE, LEFT KNEE INJECTION Surgery Details Date/Time Status Location OR Service Patient Class Case Class Case Type Trauma Case? 11/24/2021 8:30 AM Posted OPERATING ROOM OR Orthopaedics Outpatient in Bed Elective Panel 1 Procedure LRB Anes Op Region Wound Class Comments ARTHROPLASTY TOTAL RIGHT KNEE, LEFT KNEE INJECTION Right General Knee Class I - Clean General if Spinal Fails SABRINA Surgeon Surgeon Role Service Panel George Sepulveda MD Primary Orthopaedics 1 documented in this encounter Social History [...] relatives? Three times a week 11/25/2021 Attends [employer] Services Not on file 11/25 Active [...] on file Legal Sex Male 3:25 PM PROCESS CONTROLS TECHNICIAN Gender Identity Not on file Sexual Orientation Not on file documented as of this encounter Last Filed Vital Signs Vital Sign Reading Time Taken Comments Blood Pressure 99/54 11/24/2021 10:30 AM PROCESS CONTROLS TECHNICIAN Pulse 59 11/24/2021 10:30 AM PROCESS CONTROLS TECHNICIAN Temperature 36.1 ??C (96.9 ??F) 11/24/2021 10:[address] Respiratory Rate 14 11/24/2021 10:30 AM PROCESS CONTROLS TECHNICIAN Oxygen Saturation 98% 11/24/2021 10:30 AM PROCESS CONTROLS TECHNICIAN Inhaled Oxygen Concentration - - Weight 94.6 kg (208 lb 8 oz) 11/24/2021 7:32 AM PROCESS CONTROLS TECHNICIAN Height 180.3 cm (5' 11 ) 11/24/2021 7:32 AM PROCESS CONTROLS TECHNICIAN Body Mass Index 29.29 11/24/2021 7:32 AM PROCESS CONTROLS TECHNICIAN documented in this encounter Discharge Summaries * Jossie Montalvo PA - 11/26/2021 3:12 PM CST Inpatient Discharge Summary BRIEF OVERVIEW Admitting Provider: George Sepulveda MD Discharge Provider: George Sepulveda MD Primary Care Physician at Discharge: Santino Funk MD [phone] Admission Date: 11/24/2021 Discharge Date: 11/26/2021 Admission Location: [facility] Problems/Diagnoses: Principal Problem: Primary osteoarthritis of both [...] of walker?: Yes DME services provided by: [facility] Discharge Medications: Current Medications TAKE these medications [...] 10:40 AM Jessie Andrade NP [facility] BL[facility] 12/09/2021 10:00 AM Jossie Montalvo PA [facility] 12/17/2021 1:40 PM Kong Mayfield MD [facility] 03/12/2022 10:30 AM Nayan Mahajan II, MD [facility] Special[facility] Cosigned by George Sepulveda MD at 11/26/2021 4:08 PM PROCESS CONTROLS TECHNICIAN ESS CONTROLS TECHNICIAN ESS CONTROLS TECHNICIAN documented in this encounter Discharge Instructions * Appointments* Nalini Dunham RN - 11/26/2021 3:04 PM PROCESS CONTROLS TECHNICIAN Home Health has been set up with [facility] [phone]. They will be contacting you regarding initial visit. ESS CONTROLS TECHNICIAN documented in this encounter Medications at Time [...] times a day 60 tablet 1 11/26/2021 07/19/202 2 donepeziL (ARICEPT) 10 mg tabletIndications :Late [...] this encounter Progress Notes * Michelle Carrasco, RAIL MAINTENANCE WORKER - 11/26/2021 1:10 PM CST Physical Therapy [...] ulcer Peptic ulcer disease ??? Seizures (CMS/HCC) (HCC) 1998 last seizure in 1997 ??? SOB (shortness of breath) on exertion ??? Subchondral insufficiency fracture of condyle of left femur (CMS/HCC) (HCC) ??? Vertigo ??? Visual disturbance hx of [...] call light in reach, verbal handoff to MARAH Rhodes EDUCATION: Transfers, gait, stairs RESPONSE TO EDUCATION: [...] Isabella Moya, PT at 11/27/2021 8:44 AM PROCESS CONTROLS TECHNICIAN ESS CONTROLS TECHNICIAN ESS CONTROLS TECHNICIAN * Ap Pang COTA - 11/26/2021 10:34 AM CST Occupational Therapy NOTE / SESSION TYPE: DAILY PROGRESS / TREATMENT Patient's Name: Gunjan Gtz Jr. Age / Sex: 76 y.o. / male Room: [place] [address] : 1945 Date of service: 11/26/21 TIME [...] ulcer Peptic ulcer disease ??? Seizures (CMS/HCC) ([facility]) 1998 last seizure in 1997 ??? SOB (shortness of breath) on exertion ??? Subchondral insufficiency fracture of condyle of left femur (CMS/HCC) ([facility]) ??? Vertigo ??? Visual disturbance hx of [...] session: Yes Completed patient handoff and notified DRYER FEEDER / RN, name: Meagan, of patient's location and functional status upon completion of session Cognitive / Perceptual: Followed all commands without difficulty. Mobility / Transfers: Bed Mobility: SPV supine to/from sit using gait belt as leg chemical milling processor to assist with RLE Transfer(s): CGA sit to/from stand from EOB with wheeled walker and MIN verbal cues for hand placement CAR TRANSFER LOCATION: CAR SIMULATOR SET AT HEIGHT OF 20 INCHES PER PATIENT'S HOME VEHICLE OVERALL ASSIST LEVEL: INCIDENTAL TOUCHING ASSISTANCE DEVICE: WHEELED WALKER ADDITIONAL DOCUMENTATION: using leg chemical milling processor to assist with RLE with increased time Patient verbalized good understanding of shower transfer technique to shower bench with DME education and pricing options at his local [facility]. Did not attempt transfer at this [...] Rodriguez 11/26/21 11:43 AM Cosigned by Winifred Boyce, OT at 11/27/2021 3:03 PM PROCESS CONTROLS TECHNICIAN ESS CONTROLS TECHNICIAN ESS CONTROLS TECHNICIAN * Michelle Carrasco, RAIL MAINTENANCE WORKER - 11/26/2021 9:10 AM CST Physical Therapy [...] ulcer Peptic ulcer disease ??? Seizures (CMS/HCC) (HCC) 1997 last seizure in 1997 ??? SOB (shortness of breath) on exertion ??? Subchondral insufficiency fracture of condyle of left femur (CMS/HCC) (HCC) ??? Vertigo ??? Visual disturbance hx of [...] intervention: n/a Post-therapy pain level/response to intervention: 9/10 R knee OBJECTIVE PRECAUTIONS: fall risk, WBAT [...] reach, alarm not active, verbal handoff to MARAH Rhodes EDUCATION: HEP, gait, bed mobility RESPONSE TO [...] Isabella Moya, PT at 11/27/2021 8:46 AM PROCESS CONTROLS TECHNICIAN ESS CONTROLS TECHNICIAN ESS CONTROLS TECHNICIAN ESS CONTROLS TECHNICIAN * Norma Park PA - 11/26/2021 8:54 [...] He would like discharge medications sent to [facility] in [place]. Dressing care reviewed. Patient denies any further questions at this time. LORI Castro 11/26/2021 8:58 AM Cosigned by George Sepulveda MD at 11/26/2021 12:20 PM PROCESS CONTROLS TECHNICIAN ESS CONTROLS TECHNICIAN ESS CONTROLS TECHNICIAN * Nalini Dunham RN - 11/25/2021 3:24 PM CST CM Initial Assessment Interview Note Information Obtained From: Patient (11/25/21 1228) Admission Source: Elective surgery Impression: Osteoarthritis of the right and left knee. S/p arthroplasty total right knee, left kneeinjection Plan Includes: PT/OT evaluation, pain management, labs Primary Source of Transportation: Drives self Health Insurance Coverage: BCBS OOS/Medicare A&B Prescription Coverage: yes Pharmacy: [facility] [address] [facility] [address] Primary Care Provider: Santino Funk MD Prior to Admission: Primary Caregiver: Self Support System: Spouse/Significant Other Support system contact info (name, phone, availablity): Alon tGz () [phone] Home Care Services: No Durable Medical Equipment: Cane (single prong), Walker (wheeled), Shower chair Living Arrangements: Spouse/significant other Type of Residence: Private residence Steps in home? : Yes, Outside of home (11/25/211227) Potential discharge needs include: Home Health: Physical therapy, Occupational therapy (11/25/211227) Dialysis: n/a Behavioral Health Services: no Patient expects to be Discharged to: Private residence, (11/25/211227) Additional Information: FAMILY MEDICINE CHAIR and SDOH completed with patient at bedside. [...] work consult entered. Patient is agreeable to [facility] with SOC on 11/27. CMwill continue [...] Collaboration with patient, MD, direct care nurse, Lead Project Manager, Nurse Coordinator and other members of the health care team to assure needed interventions completed. 2. Return patient to optimal level of self-care post discharge. 3. Leaf Size Picker will follow for Discharge Planning - interventions as needed 4. Anticipated level of care at discharge 5. Planned Discharge Disposition Nalini Dunham RN, BSN - [phone] ESS CONTROLS TECHNICIAN * Isis Marie Julissa - 11/25/2021 1:31 PM CST Physical Therapy PT PROGRESS NOTE Gunjan Ulisses Shahid 76 y.o. 1945 Past Medical History: Diagnosis Date ??? Acute gastric ulcer without hemorrhage or perforation Ulcer, gastric, acute - (Added by TW Conv) ??? Alzheimer's dementia ([facility]) ??? Asthma ??? Cataract ??? Closed fracture [...] ulcer Peptic ulcer disease ??? Seizures (CMS/HCC) ([facility]) 1998 last seizure in 1997 ??? SOB (shortness of breath) on exertion ??? Subchondral insufficiency fracture of condyle of left femur (CMS/HCC) ([facility]) ??? Vertigo ??? Visual disturbance hx of double vision, corrective lenses Past Surgical History: Procedure Laterality Date ??? CATARACT EXTRACTION, BILATERAL Bilateral 2017 ??? HERNIA REPAIR 1980 Hiatal Hernia repair ??? KNEE ARTHROSCOPY Bilateral ??? THYROIDECTOMY 12/27/2019 Patient Active Problem List Diagnosis ??? Primary osteoarthritis of both knees ??? Subchondral insufficiency fracture of condyle of left femur (CMS/HCC) ([facility]) ??? Closed fracture of left tibial plateau [...] the discharge summary. Isis Marie, STEPHANIE 11/25/21 4:36 PM Cosigned by Isabella Moya, PT at 11/25/2021 4:45 PM PROCESS CONTROLS TECHNICIAN ESS CONTROLS TECHNICIAN ESS CONTROLS TECHNICIAN ESS CONTROLS TECHNICIAN * Peg Dunbar, OT - 11/25/2021 9:22 AM CST Occupational Therapy NOTE / SESSION TYPE: Initial Evaluation Patient Name: Gunjan Gtz Date of : 1945 Age / Sex: 76 y.o. / male Room: [facility] [address] Admit Date: 11/24/2021 Date of Service: 11/25/21 Time In: 921 Time Out: 1010 Primary Diagnosis: Primary osteoarthritis of both knees [...] ulcer Peptic ulcer disease ??? Seizures (CMS/HCC) ([facility]) 1998 last seizure in 1997 ??? SOB (shortness of breath) on exertion ??? Subchondral insufficiency fracture of condyle of left femur (CMS/HCC) ([facility]) ??? Vertigo ??? 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 Social roles / Hobbies: mostly works Patient / Family goal(s): none stated OBJECTIVE: Appearance: Presentation upon OT arrival: Patient Supine Presentation upon OT departure: Patient Sitting in bedside recliner Bed / chair alarm in place and activated upon OT departure: Yes Call light within arms reach of patient at end of session: Yes Completed patient handoff and notified Physical Therapist / Physical Therapist Shiatsu Therapist, name: Shan, of patient's location and functional status upon completion of session Cognitive / Perceptual Assessment: Alert and awake, oriented UE ROM / Strength / Coordination: (A)ROM - Right: wfl Strength - Right: 4/5 (A)ROM - Left: wfl Strength - Left: 4/5 Hand Dominance: Right Leaf Size Picker Strength (Right) good Leaf Size Picker Strength (Left): good Right Serial Opposition: Intact Left Serial Opposition: Intact Balance: Static sitting balance: good Dynamic sitting balance: good Static standing balance: good- supported Mobility / Transfers: Bed mobility (Components & Assistance): supine to sit with min assist Transfer(s): bed to [facility] chair with cg assist using w/w Activities [...] (from Occupational Therapy) Active Problems Problem: OT [facility] Start Date: 11/25/21 Goal Start Date Expected End Date End Date OT [facility] [[email or web address] - Mis 1 11/25/21 12/02/21 -- Goal Details: Patient will complete bathing with supervision one time. Goal Start Date Expected End Date End Date OT [facility] [[email or web address] - Mis 2 11/25/21 12/02/21 -- Goal Details: Patient will complete toilet transfer with supervision one time. Goal Start Date Expected End Date End Date OT [facility] [[email or web address] - [facility] 3 11/25/21 12/02/21 -- Goal Details: Patient [...] the discharge summary Peg Dunbar OT 11/25/21 ESS CONTROLS TECHNICIAN * Jossie Montalvo PA - 11/25/2021 8:51 [...] last 2 completed shifts: In: 2109 [P.O.:200; I.V.:191] Out: 1470 [Urine:1350; Drains:100; Blood:20] Physical Exam: Prevena dressing [...] George Sepulveda MD at 11/25/2021 9:17 AM PROCESS CONTROLS TECHNICIAN ESS CONTROLS TECHNICIAN ESS CONTROLS TECHNICIAN * Isis Marie - 11/25/2021 8:12 AM [...] condyle of left femur (CMS/HCC) ([facility]) ??? Closed fracture of left tibial plateau [...] (Added by TW Conv) ??? Alzheimer's dementia ([facility]) ??? Asthma ??? Cataract ??? Closed fracture [...] ulcer Peptic ulcer disease ??? Seizures (CMS/HCC) ([facility]) 1998 last seizure in 1997 ??? SOB (shortness of breath) on exertion ??? Subchondral insufficiency fracture of condyle of left femur (CMS/HCC) ([facility]) ??? Vertigo ??? Visual disturbance hx of [...] . Patient is driving and working at [employer]. EQUIPMENT OWNED: wheeled walker, cane, shower chair [...] F+ supported Dynamic standing balance: F supported AMPAC 6 CLICK: Basic Mobility - 6 Click [...] consider this the discharge summary. Isis Marie, [facility] 11/25/21 11:15 AM Cosigned by Isabella Moya, PT at 11/25/2021 4:30 PM PROCESS CONTROLS TECHNICIAN ESS CONTROLS TECHNICIAN ESS CONTROLS TECHNICIAN * Becky Moon, PT - 11/24/2021 1:10 PM CST Physical Therapy Med-cancel - Per RN patient just given medicine for abdominal cramps. In addition, patient with increased rigor, and just received from PACU. Will attempt physical therapy evaluation at a later time as schedule allows. Becky Moon, PT 11/24/21 1:11 PM ESS CONTROLS TECHNICIAN documented in this encounter H&P Notes * [...] is actually scheduled for knee replacement at [facility] at the end of this year so [...] diseases of skin or subcutaneous tissue, Seizures ([facility]) ([facility]) (1997), SOB (shortness of breath) on exertion, Subchondral insufficiency fracture of condyle of left femur([facility]) ([facility]), and Visual disturbance.He has no past medical history of Motion sickness, PONV (postoperative nausea and vomiting), or Sleep apnea. ?? PAST SURGICAL HISTORY He has a past surgical history that includes pr abdomen surgery proc unlisted; Hernia repair (1979); Cataract extraction, bilateral (Bilateral, 2017); and Thyroidectomy (12/27/2019). ?? MEDICATIONS He has [...] knees, with subchondral sclerosis, subchondral cysts and nkbt-oh-mjxu contact in the medial compartment. Patellofemoral changes [...] will be at the time of surgery. ESS CONTROLS TECHNICIAN documented in this encounter Consult Notes * [...] in the office. Job ID/VF Job ID: [id number] ESS CONTROLS TECHNICIAN * Jessie Andrade, TOOL HARDENER - 11/25/2021 9:13 AM CSTAssociated Order(s): IP CONSULT TO UROLOGY Urology Consult Reason for Consult: urinary retention/urgency, post op TKA Requesting Physician: LORI Jones Consulting Physician: Dr. Dinesh Hameedshauna Gtz is a 76 y.o. male with [...] occasions for bladder scan that demonstrated urinary retention. The nurse reports that he eliminated 250 ml at 730 am. He recently eliminated 100 cc urine via theurinal. He is on oxybutynin 10 mL XL [...] ulcer Peptic ulcer disease ??? Seizures (CMS/HCC) ([facility]) 1998 last seizure in 1997 ??? SOB (shortness of breath) on exertion ??? Subchondral insufficiency fracture of condyle of left femur (CMS/HCC) ([facility]) ??? Vertigo ??? Visual disturbance hx of [...] by mouth nightly 1/2 to 1 tablet 11/23/2021 at 2100 ??? [...] if you have any questions. SEAN Dahl [facility] [employer] Department of Surgery, Division of Urology [phone] 11/25/2021 9:14 AM ESS CONTROLS TECHNICIAN ESS CONTROLS TECHNICIAN ESS CONTROLS TECHNICIAN documented in this encounter Nursing Notes * Meagan Alonso RN - 11/26/2021 3:37 PM CST Patient discharged to home via private vehicle accompanied by spouse. Discharge instructions reviewed with patient and/or financial service representative. Mobile pharmacy medications and/or prescriptions provided. Belongings/home medications returned. ESS CONTROLS TECHNICIAN * Meagan Alonso RN - 11/26/2021 9:18 [...] in flowsheets. Plan of care discussed with patient/financial service representative, including as it relates to Principal Problem: Primary osteoarthritis of both knees Patient progressing. Clinical goals for the shift: Pain management, Discharge home. Education provided includes Discharge Planning, Fall Prevention and Pain Management. Patient and/or financial service representative Verbalizes understanding. Will continue to monitor. ESS CONTROLS TECHNICIAN documented in this encounter Miscellaneous Notes * Plan of Care - Nalini Dunham RN - 11/26/2021 2:59 PM CST Home Care Coordination: home health arranged with [facility] per pt choice. Entered onAVS, okay to d/c from CM standpoint. No further f/u from at this time. LUCIO spoke with Patricia at [facility]. They will be contacting patient with SOC, patient will be seen Friday 12/01 unless there is an opening. Nalini Dunham RN, BSN - [phone] ESS CONTROLS TECHNICIAN * Plan of Care - Nalini Dunham RN - 11/26/2021 2:16 PM CST Patient has been accepted by [facility] in [place] for HH. Documentation and HH order faxed to Patricia (ph. [phone]/fax [phone]). Therapist will review for completion. Nalini Dunham RN, BSN - CM [phone] ESS CONTROLS TECHNICIAN * Plan of Care - Nalini Dunham RN - 11/26/2021 12:01 PM CST LUCIO was informed by Maisha Gimenez with [facility] that patient's primary insurance is a high deductible plan and he has not met any of his deductible or out of pocket and they do not accept his secondary insurance, [employer]. LUCIO spoke with patient who thought about paying for [facility] services but then checked with his who is recovering from knee surgery and he would like to see if [facility] in [facility] would be able to see him at home. LUCIO spoke with Patricia ([phone]) and she will check with the HHtherapist to see if patient is in the coverage area and call me back. Nalini Dunham RN, BSN - [phone] ESS CONTROLS TECHNICIAN * Plan of Care - Ap Pang COTA - 11/26/2021 11:44 AM CST Problem: OT Misc Goal: OT STG - Misc 3 Description: Patient will complete car/shower transfer with supervision one time Outcome: Progressing Note: LOCATION: CAR SIMULATOR SET AT HEIGHT OF 20 INCHES PER PATIENT'S HOME VEHICLE OVERALL ASSIST LEVEL: INCIDENTAL TOUCHING ASSISTANCE DEVICE: WHEELED WALKER ADDITIONAL DOCUMENTATION: using leg chemical milling processor to assist with RLE with increased time Patient verbalized good understanding of shower transfer technique to shower bench with DME education and pricing options at his local [facility]. Did not attempt transfer at this time due to pain. ANGI Rodriguez 11/26/21 11:45 AM ESS CONTROLS TECHNICIAN * Plan of Sariah - Patricia Chen RN - 11/26/2021 3:34 [...] for the Shift: safety and comfort Summary: ESS CONTROLS TECHNICIAN * Plan of Sariah - Maxime Carter LMSW - 11/25/2021 2:17 PM CST LEAD PHARMACY TECHNICIAN attempted to speak to pt to provide advanced directive information. LEAD PHARMACY TECHNICIAN was unable to speak to him. LEAD PHARMACY TECHNICIAN provided advanced directive information in his chart. LEAD PHARMACY TECHNICIAN will continue to follow as needed. Maxime Carter LMSW Lead Project Manager Case Management, 10th Floor 11/25/21 2:17 PM ESS CONTROLS TECHNICIAN * Plan of Care - Gem Gimenez RN - 11/25/2021 1:22 PM CST Home Health Consult received patient accepted to [facility] home care. ADD 11/26 with SOC 11/27 for PT/OT. LUCIO Pearce notified. ESS CONTROLS TECHNICIAN * Plan of Care - Peter Negron [...] I will continue to monitor the patient ESS CONTROLS TECHNICIAN * Significant Event - Kelin Mendiola NP - 11/24/2021 9:00 PM CST Significant Event Hospitalist Service Hospitalist service called and accepted for medical consult. On further review of the chart it is noted that the patient's PCP is Dr. Santino Funk who see's his own patients. Nursing on the 10th floor instructed to call Dr. Funk for consult. ESS CONTROLS TECHNICIAN * Op Note - George Sepulveda MD - 11/24/2021 8:30 AM CST Operative Note Name: Gunjan Gtz Jr. : 1945 AGE: 76 y.o. DATE: 11/24/2021 SURGEON: George Sepulveda MD MACHINE FILLER SHREDDER: CHECO Sears, CHECO Jones PREOPERATIVE DIAGNOSIS: 1. [...] ANESTHESIA: Spinal plus local anethesic IMPLANTS: FEMUR Sabrina Persona Size 11 Narrow Cruciate Retaining Press-fit femoral component. TIBIA Sabrina Persona Size G Cemented tibial base plate [...] with a #1 Vicryl stitch in interrupted eovawx-lz-qzvys fashion. The subcutaneous tissue was closed with 2-0 Vicryl and skin was closed with a staple closure. Sterile dressings were then applied. The patient then awoken from anesthesiaand transferred to the PACU in stable condition. All sponge and needle counts were correct. assistant film editor Norma Park helped to position the patient pre-operatively, assisted in opening, held retractors during the case and closed the subcutaneous tissue and skin at the conclusion. She then assisted in the transfer of the patient to the post-operative bed and transport to PACU. Due to the complexity of the case, the skill set of an orthopedic physician social science research assistant was necessary throughout the case. She effectively limited the operative time and significantly facilitated a successful surgical procedure. George Sepulveda MD 11/24/2021 9:37 AM ESS CONTROLS TECHNICIAN ESS CONTROLS TECHNICIAN documented in this encounter Plan of Treatment Upcoming Encounters Date Type Department Care Team (Latest Contact Info) Description 10/23/2024 10:00 AM PROCESS CONTROLS TECHNICIAN Hospital Encounter [facility] [address] [place] [id number] [place] [id number] [address] 10/23/2024 10:00 AM PROCESS CONTROLS TECHNICIAN - 10/23/2024 1:00 PM PROCESS CONTROLS TECHNICIAN Surgery [facility] [address] [place] [id number] [place] [id number] [address] ARTHROPLASTY TOTAL KNEE LEFT Scheduled Procedures Name Priority Associated Diagnoses Date/Ti me ARTHROPLASTY TOTAL KNEE left knee osteoarthritis 10/23/2024 10:00 AM PROCESS CONTROLS TECHNICIAN ESOPHAGOGASTRODUODENOSCOPY Dysphagia, unspecified type documented as of this encounter Procedures Procedure Name Priority Date/Time Associated Diagnosis Comments EGFR Routine 11/25/2021 10:15 AM PROCESS CONTROLS TECHNICIAN DIFFERENTIAL AUTO Routine 11/25/2021 10: 15 AM PROCESS CONTROLS TECHNICIAN CBC WITH AUTO DIFFERENTIAL Routine 11/25/2021 10:15 AM PROCESS CONTROLS TECHNICIAN BASIC METABOLIC PANEL Routine 11/25/2021 10:15 AM PROCESS CONTROLS TECHNICIAN SURGICAL PATHOLOGY Routine 11/24/2021 12 :43 PM PROCESS CONTROLS TECHNICIAN Primary osteoarthritis of both knees XR KNEE RIGHT 1 OR 2 VIEWS IP Routine 11/24/2021 10:40 AM PROCESS CONTROLS TECHNICIAN ARTHROPLASTY TOTAL KNEE 11/24/2021 8:23 AM PROCESS CONTROLS TECHNICIAN Primary osteoarthritis of both knees B CHECK SAMPLE STAT 11/24/2021 7:57 AM PROCESS CONTROLS TECHNICIAN documented in this encounter Results * eGFR (11/25/2021 10:15 AM PROCESS CONTROLS TECHNICIAN) eGFR 64 mL/min/1. 73 m2 MARVIN FISHER [...] reviewed 2021. Blood 11/25/2021 10:1 5 AM PROCESS CONTROLS TECHNICIAN 11/25/2021 10:23 AM PROCESS CONTROLS TECHNICIAN us George Sepulveda MD LAB BLOOD ORDERABLES Krystina solitario Result [facility] [id number] [place] [address] * (ABNORMAL) Differential, auto (11/25/2021 10:15 AM PROCESS CONTROLS TECHNICIAN) Neutrophil abs 9.2(H) 1.7 - 6.5 K/cumm [facility] Imm gran abs 0.1 0.0 - 0.1 K/cumm [facility] Lymphocyte abs 1.7 0.8 - 3.3 K/cumm [facility] Monocyte abs 1.3(H) 0.2 - 0.8 K/cumm [facility] Eosinophil abs 0.0 0.0 - 0.5 K/cumm [facility] Basophil abs 0.0 0.0 - 0.1 K/cumm [facility] Neutrophil pct 74.7 % [facility] Comment: Interpretive Data Percent cell count reference ranges are not reported, since discordance with absolute values may lead to misinterpretation of CBC data. Current Interpretive Data was last revised on 2018. Imm gran pct 0.5 % [facility] Comment: Interpretive Data Percent cell count reference ranges are not reported, since discordance with absolute values may lead to misinterpretation of CBC data. Current Interpretive Data was last revised on 2018. Lymphocyte pct 13.7 % [facility] Comment: Interpretive Data Percent cell count reference ranges are not reported, since discordance with absolute values may lead to misinterpretation of CBC data. Current Interpretive Data was last revised on 2018. Monocyte pct 10.7 % [facility] Comment: Interpretive Data Percent cell count reference ranges are not reported, since discordance with absolute values may lead to misinterpretation of CBC data. Current Interpretive Data was last revised on 2018. Eosinophil pct 0.2 % [facility] Comment: Interpretive Data Percent cell count reference ranges are not reported, since discordance with absolute values may lead to misinterpretation of CBC data. Current Interpretive Data was last revised on 2018. Basophil pct 0.2 % [facility] Comment: Interpretive Data Percent cell count reference ranges are not reported, since discordance with absolute values may lead to misinterpretation of CBC data. Current Interpretive Data was last revised on 2018. Blood 11/25/2021 10:1 5 AM PROCESS CONTROLS TECHNICIAN 11/25/2021 10:23 AM PROCESS CONTROLS TECHNICIAN George Sepulveda MD LAB BLOOD ORDERABLES Krystina l Result [facility] [address] [place] [address] * (ABNORMAL) CBC with auto differential (11/25/2021 10:15 AM PROCESS CONTROLS TECHNICIAN) WBC 12.3(H) 3.8 - 9.9 K/cumm [facility] Hgb 13.8 13.0 - 17.5 g/dL [facility] Hct 41.2 38.9 - 50.3 % [facility] Plt 194 150 - 400 K/cumm [facility] MPV 10.2 9.1 - 12.3 fL [facility] RBC 4.03(L) 4.30 - 5.80 M/cumm [facility] MCV 102.2(H) 81.3 - 96.4 fL [facility] MCH 34.2(H) 27.1 - 33.3 pg [facility] MCHC 33.5 32.3 - 35.7 g/dL [facility] RDW CV 12.4 11.1 - 14.9 % [facility] RDW SD 47.6 35.7 - 48.1 fL [facility] NRBC abs 0.00 0.00 - 0.01 K/cumm [facility] Blood 11/25/2021 10:1 5 AM PROCESS CONTROLS TECHNICIAN 11/25/2021 10:23 AM PROCESS CONTROLS TECHNICIAN George Sepulveda MD LAB BLOOD ORDERABLES Krystina l Result Performing Organization Address City/[facility]/ZIP Co de Phone Number [facility] [id number] Department [employer] [place] [address] * Basic metabolic panel (11/25/2021 10:15 AM PROCESS CONTROLS TECHNICIAN) Sodium 140 135 - 145 mmol/L [facility] Potassium, pl 4.4 3.3 - 4.9 mmol/L [facility] Chloride 105 97 - 110 mmol/L [facility] CO2 24 22 - 32 mmol/L [facility] Anion gap 11 2 - 15 mmol/L [facility] BUN 18 8 - 25 mg/dL [facility] Creatinine 1.18 0.80 - 1.30 mg/dL [facility] Glucose 144 70 - 199 mg/dL [facility] Comment: Interpretive Data Fasting glucose >/= [...] 2017. Calcium 8.6 8.5 - 10.3 mg/dL [facility] Blood 11/25/2021 10:1 5 AM PROCESS CONTROLS TECHNICIAN 11/25/2021 10:23 AM PROCESS CONTROLS TECHNICIAN George Sepulveda MD LAB BLOOD ORDERABLES Krystina l Result Performing Organization Address City/State/[facility] Co de Phone Number [address] [place] [address] * Surgical pathology (11/24/2021 12:43 PM PROCESS CONTROLS TECHNICIAN) Tissue (Bone Fragment(s),) 11/24/2021 9:00 AM PROCESS CONTROLS TECHNICIAN Narrative PATHOLOGY - 11/26/2021 2:46 PM PROCESS CONTROLS TECHNICIAN EPIC results best viewed via link to PDF [facility] Department of Pathology [address] [place] [id number] Note to Patients: This report may contain [...] Report Patient Name: ??GUNJAN GTZ JR Address: ??[address] [place] [address], ??[place], [place] ??[address] Gender: ??M : ??1945 (Age: 76) Service: ??Laboratory Location: ??[address] Hospital #: ??[id number] Patient Type: ??[facility] Accession # ?[id number] Taken: ??11/24/2021 Received: ??11/24/2021 Accessioned: ??11/24/2021 Reported: [...] and represented in two cassettes. ??Jm Ramey M.D./T. Chavira, P.A. REPORT IMAGES AND SCANNED DOCUMENTS, IF INCLUDED, ONLY VIEWABLE IN PDF VERSION OF REPORT The performance characteristics of some immunohistochemical stains, fluorescence in-situ hybridization tests and immunophenotyping by flow cytometry cited in this report (if any) were determined by the Surgical Pathology Department at [facility] as part of an ongoing housing quality standard inspector program and in compliance with federally mandated [...] characteristics determined by the Surgical Pathology Department [facility]. ??It has not been cleared or approved by the U. S. Food and Drug Administration. 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 Electronically signed by: Cat Sandoval M.D. Narrative 11/24/2021 10:59 AM PROCESS CONTROLS TECHNICIAN EXAMINATION: XR KNEE RIGHT 1 OR 2 [...] esult * Check Sample (11/24/2021 7:57 AM PROCESS CONTROLS TECHNICIAN) ABO Rh O Negative [facility] OTHER 11/24/2021 7:57 AM PROCESS CONTROLS TECHNICIAN 11/24/2021 7:57 AM PROCESS CONTROLS TECHNICIAN George Sepulveda MD LAB BLOOD ORDERABLES Krystina l Result [facility] [address] Department of Laboratories [place] [phone] documented in this encounter Visit Diagnoses Diagnosis Primary osteoarthritis of both knees- Primary Primary osteoarthritis of both knees Primary osteoarthritis of both knees documented in this encounter Admitting Diagnoses Diagnosis Primary osteoarthritis of both knees documented in this encounter Administered Medications Inactive Administered Medications - up to 3 most recent administrations Medication Order MAR Action Action Date Dose Rate Site bupivacaine (MARCAINE) 0.25 % (2.5 mg/mL) preservative free injection As needed, Starting on Wed11/24/21 at 0856, Intra-Op Given 11/24/2021 8:57 AM PROCESS CONTROLS TECHNICIAN 4 mL Surgical Site Given 11/24/2021 8:56 AM PROCESS CONTROLS TECHNICIAN 30 mL Blue rgical Site cholecalciferol (VITAMIN D-3) tablet 2,000 Units 2,000 Units, oral, Nightly, First dose on Wed11/24/21 at 2100 Given 11/25/2021 9:55 PM PROCESS CONTROLS TECHNICIAN 2,000 Units Given 11/24/2021 9:51 PM PROCESS CONTROLS TECHNICIAN 2,000 Units donepeziL (ARICEPT) tablet 10 mg 10 mg, oral, Nightly, First dose on Wed11/24/21 at 2100 Given 11/25/2021 9:54 PM PROCESS CONTROLS TECHNICIAN 10 mg Given 11/24/2021 9:49 PM PROCESS CONTROLS TECHNICIAN 10 mg famotidine (PEPCID) tablet 20 mg 20 mg, oral, 2 times daily, First dose on Wed11/24/21 at 1230, Indications: HeartburnIndications:Heartburn Given 11/26/2021 8:18 AM PROCESS CONTROLS TECHNICIAN 20 mg Given 11/25/2021 9:54 PM PROCESS CONTROLS TECHNICIAN 20 mg Given 11/25/2021 8:54 AM PROCESS CONTROLS TECHNICIAN 20 mg ketorolac (TORADOL) 15 mg/mL injection 15 mg 15 mg, intravenous, Every 6 hours PRN, 2nd line for pain, Starting on Wed11/24/21 at 1149, For 5 days, For Adult IV push, administer over 15 seconds Given 11/26/2021 10:50 AM PROCESS CONTROLS TECHNICIAN 15 mg Given 11/25/2021 5:18 PM PROCESS CONTROLS TECHNICIAN 15 mg Given 11/25/2021 8:54 AM PROCESS CONTROLS TECHNICIAN 15 mg Lactated Ringer's (LR) infusion 30 mL/hr, intravenous, Continuous, Starting on Wed11/24/21 at 0745 New Bag 11/24/2021 11:01 AM PROCESS CONTROLS TECHNICIAN 30 mL/hr 30 mL/hr Restarted 11/24/2021 10:09 AM PROCESS CONTROLS TECHNICIAN New Bag 11/24/2021 8:24 AM PROCESS CONTROLS TECHNICIAN 50 mL/hr levothyroxine (SYNTHROID) tablet 150 mcg 150 mcg, oral, Daily (early AM), First dose on Wed11/25/21 at 0600, Administer on an empty stomach, preferably 30 minutes before breakfast. Take 4 hours apart from antacids, iron and calcium products. Given 11/26/2021 6:05 AM PROCESS CONTROLS TECHNICIAN 150 mcg Given 11/25/2021 6:17 AM PROCESS CONTROLS TECHNICIAN 150 mcg magnesium oxide (MAG-OX) tablet 200 mg 200 mg, oral, Nightly, First dose on Wed11/24/21 at 2100, 1 tablet = Magnesium oxide 400 mg = 241.3 mg elemental magnesium, Indications: hypomagnesemiaIndications:hypomagnesemia Given 11/25/2021 9:52 PM PROCESS CONTROLS TECHNICIAN 200 mg Given 11/24/2021 9:51 PM PROCESS CONTROLS TECHNICIAN 200 mg methylPREDNISolone acetate (DEPO-medrol) injection As needed, Starting on Wed11/24/21 at 0857, Intra-Op Given 11/24/2021 8:57 AM PROCESS CONTROLS TECHNICIAN 80 mg Surgical Site ondansetron (ZOFRAN) injection 4 mg 4 mg, intravenous, Administer over 2 Minutes, Every 6 hours PRN, nausea, vomiting, if not tolerating PO, Starting on Wed11/24/21 at 0723, Indications: nausea and vomitingIndications:nausea and vomiting Given 11/24/2021 5:18 PM PROCESS CONTROLS TECHNICIAN 4 mg ondansetron ODT (ZOFRAN-ODT) disintegrating tablet 4 mg 4 mg, oral, Every 6 hours PRN, nausea, vomiting, Starting on Wed11/24/21 at 0723, Indications: nausea and vomitingIndications:nausea and vomiting oxyCODONE-acetaminophen (PERCOCET) 10-325 mg per tablet 1 tablet 1 tablet, oral, Every 4 hours PRN, 1st line for pain, Starting on Wed11/24/21 at 1149, Indications: PainIndications:Pain Given 11/26/2021 1:10 PM PROCESS CONTROLS TECHNICIAN 1 tablet Given 11/26/2021 8:58 AM PROCESS CONTROLS TECHNICIAN 1 tablet Given 11/26/2021 4:56 AM PROCESS CONTROLS TECHNICIAN [address] (PROTONIX) extended release tablet 40 mg 40 mg, oral, Daily, First dose on Wed11/24/21 at 1230, Do not crush, chew, cut, dissolve, open or otherwise manipulate tablet/capsule., Indications: Mucositis ProphylaxisIndications:Mucositis Prophylaxis Given 11/26/2021 8:18 AM PROCESS CONTROLS TECHNICIAN 40 mg Given 11/25/2021 8:54 AM PROCESS CONTROLS TECHNICIAN 40 mg Given 11/24/2021 12:53 PM PROCESS CONTROLS TECHNICIAN 40 mg polyethylene glycol (MIRALAX) packet 17 g 17 g, oral, 2 times daily PRN, constipation, Starting on Wed11/25/21 at 0853, Indications: constipationIndications:constipation polymyxin B injection As needed, Starting on Wed11/24/21 at 0856, Intra-Op Given 11/24/2021 8:56 AM PROCESS CONTROLS TECHNICIAN 1,000,000 Units senna-docusate (PERICOLACE) 8.6-50 mg per tablet 2 tablet 2 tablet, oral, 2 times daily, First dose on Wed11/24/21 at 1230, Hold for diarrhea., Indications: constipationIndications:constipation Given 11/26/2021 8:17 AM PROCESS CONTROLS TECHNICIAN 2 table ts Given 11/25/2021 9:52 PM PROCESS CONTROLS TECHNICIAN 2 tablets Given 11/25/2021 8:54 AM PROCESS CONTROLS TECHNICIAN 2 tablets simethicone (MYLICON) chewable tablet 80 mg 80 mg, oral, Every 4 hours PRN, flatulence, Starting on Wed11/24/21 at 1725 sodium chloride 0.9% flush 0.5-20 mL 0.5-20 mL, intra-catheter, Every 8 hours scheduled, First dose on Wed11/24/21 at 1400, Flush volume based on line type and size. , Indications: FlushingIndications:Flushing Given 11/26/2021 6:06 AM PROCESS CONTROLS TECHNICIAN 10 mL Given 11/25/2021 9:56 PM PROCESS CONTROLS TECHNICIAN 10 mL Given 11/24/2021 9:52 PM PROCESS CONTROLS TECHNICIAN 10 mL sodium chloride 0.9% infusion 100 mL/hr, intravenous, Continuous, Starting on Wed11/24/21 at 1230, Phase I & Post-op Floor New Bag 11/24/2021 9:56 PM PROCESS CONTROLS TECHNICIAN 100 mL/hr 100 mL/hr sodium chloride 0.9% irrigation As needed, Starting on Wed11/24/21 at 0856, Intra-Op Given 11/24/2021 8:57 AM PROCESS CONTROLS TECHNICIAN 1,000 mL Surgical Site Given 11/24/2021 8:56 AM PROCESS CONTROLS TECHNICIAN 3,000 mL Blue rgical Site Given 11/24/2021 8:54 AM PROCESS CONTROLS TECHNICIAN 1,000 mL Blue rgical Site tamsulosin (FLOMAX) extended release capsule 0.4 mg 0.4 mg, oral, Nightly, First dose on Wed11/24/21 at 2100, Do not crush, chew, cut, dissolve, open or otherwise manipulate tablet/capsule. Given 11/25/2021 9:52 PM PROCESS CONTROLS TECHNICIAN 0.4 mg Given 11/24/2021 9:50 PM PROCESS CONTROLS TECHNICIAN 0.4 mg tiZANidine (ZANAFLEX) tablet 4 mg 4 mg, oral, Nightly, First dose on Wed11/24/21 at 2100, Administer on an empty stomach Given 11/25/2021 9:51 PM PROCESS CONTROLS TECHNICIAN 4 mg Given 11/24/2021 9:52 PM PROCESS CONTROLS TECHNICIAN 4 mg traZODone (DESYREL) tablet 50 mg 50 mg, oral, Nightly, First dose on Wed11/24/21 at 2100 Given 11/25/2021 9:51 PM PROCESS CONTROLS TECHNICIAN 50 mg Given 11/24/2021 9:50 PM PROCESS CONTROLS TECHNICIAN 50 mg vancomycin (VANCOCIN) solution As needed, Starting on Wed11/24/21 at 0857, Intra-Op Given 11/24/2021 8:57 AM PROCESS CONTROLS TECHNICIAN 3,000 mg Surgical Site documented in this encounter Discontinued Medications Medication [...] Recently Administered Medications Times are shown in PROCESS CONTROLS TECHNICIAN. Scheduled Medication Order 11/24/2021 11/25/2021 11/26/2021 ceFAZolin [...] 2100 2151 (Given - Provider: Peter Negron) 2154 (Given - Provider: Patricia Chen, MARAH) donepeziL (ARICEPT) tablet 10 mg 10 mg, oral, Nightly, First dose on Wed11/24/21 at 2100 214 (Given - Provider: Peter Negron) 2153 (Given - Provider: Patricia Chen, MARAH) famotidine (PEPCID) tablet 20 mg 20 mg, oral, 2 times daily, First dose on Wed11/24/21 at 1230, Indications: Heartburn 1252 (Given - Provider: Zeferino Chung RN)2149 (Given - Provider: Peter Negron) 0854 (Given - Provider: Zeferino Chung RN)2153 (Given - Provider: Patricia Chen RN) 18 (Given - Provider: Meagan Alonso RN) levothyroxine (SYNTHROID) tablet 150 mcg 150 mcg, oral, Daily (early AM), First dose on Wed11/25/21 at 0600, Administer on an empty stomach, preferably 30 minutes before breakfast. Take 4 hours apart from antacids, iron and calcium products. 0617 (Given - Provider: Peter Negron) 0605 (Given - Provider: Patricia Chen, MARAH) magnesium oxide (MAG-OX) tablet 200 mg 200 [...] constipation 1252 (Given - Provider: Zeferino Chung RN)2151 (Given - Provider: Peter Negron) 0854 (Given - Provider: Zeferino Chung RN)215 (Given - Provider: Patricia Chen, MARAH) 0817 (Given - Provider: Meagan Alonso, MARAH) sodium chloride 0.9% flush 0.5-20 mL 0.5-20 mL, intra-catheter, Every 8 hours scheduled, First dose on Wed11/24/21 at 1400, Flush volume based on line type and size. , Indications: Flushing 1302 (Not Given - Provider: Zeferino Chung RN - Reason: IV Infusing)215 (Given - Provider: Peter Negron) 0616 (Not Given - Provider: Peter Negron - Reason: IV Infusing)1326 (Not Given - Provider: Zeferino Chung RN - Reason: IV Infusing)215 (Given - Provider: Patricia Chen, MARAH) 0606 (Given - Provider: Patricia Chen, MARAH)1309 (Not Given - Provider: Meagan Alonso, MARAH [...] stomach 2151 (Given - Provider: Peter Negron) 215 (Given - Provider: Patricia Chen, RN) traZODone (DESYREL) tablet 50 mg 50 mg, oral, Nightly, First dose on Wed11/24/21 at 2100 2150 (Given - Provider: Peter Negron) 215 (Given - Provider: Patricia Chen, RN) Continuous Medication Order 11/24/2021 11/25/2021 11/26/2021 Lactated [...] Zeferino Chung RN - Reason: IV Infusing)2155 (New Bag - Provider: Peter Negron) PRN [...] Chung RN) 1050 (Given - Provider: Meagan Alonso RN) methylPREDNISolone acetate (DEPO-medrol) injection (CANCELED) As needed, [...] vomiting 1718 (Given - Provider: Kavita Adams, MARAH) ondansetron ODT (ZOFRAN-ODT) disintegrating tablet 4 mg(Linked Group 1) 4 mg, oral, Every 6 hours PRN, nausea, vomiting, Starting on Wed11/24/21 at 0723, Indications: nausea and vomiting 1718 (See Alternative - Provider: Kavita Adams, MARAH) oxyCODONE-acetaminophen (PERCOCET) 10-325 mg per tablet 1 tablet 1 tablet, oral, Every 4 hours PRN, 1st line for pain, Starting on Wed11/24/21 at 1149, Indications: Pain 1628 (Given - Provider: Zeferino Chung RN)2156 (Given - Provider: Peter Negron) 0156 (Given - Provider: Peter Negron)0617 (Given - Provider: Peter Negrno)1054 (Given - Provider: Zeferino Chung RN)1549 (Given - Provider: Mary Ellen Quinn RN)2215 (Given - Provider: Patricia Chen RN) 0456 (Given - Provider: Patricia Chen RN)0858 (Given - Provider: Meagan Alonso, MARAH)1310 (Given - Provider: Meagan Alonso, MARAH) polyethylene [...] (MIRALAX) packet 17 g 2 11/25/2021 11/24/2021 ceFAZolin (ANCEF) 1 gram/10 mL in sterile water (premix) - ADS Override Pull 1 11/24/2021 ceFAZolin (ANCEF) 1 gram/10 mL in sterile water (premix) 2,000 mg 1 11/24/2021 cholecalciferol (VITAMIN D-3 ) tablet 2,000 Units 1 11/24/2021 diphenhydrAMINE (BENADRYL) i njection 12.5 mg 1 11/24/2021 donepeziL (ARICEPT) tablet 10 mg 11/24/19 famotidine (PEPCID) tablet 20 mg 11/24/19 fentaNYL (SUBLIMAZE) preserv ative free injection 25 mcg 1 11/24/2021 ketorolac (TORADOL) 15 mg/mL injection 15 mg 1 11/24/2021 Lactated Ringer's (LR) infusion 1 Lactated Ringer's (LR) infus ion - ADS Override Pull 1 11/24/2021 levothyroxine (SYNTHROID) tablet 150 mcg 1 11/24/2021 magnesium oxide (MAG-OX) tablet 200 mg 1 naloxone (NARCAN) 0.4 mg/mL injection 0.04-0.4 mg 1 11/24/2021 ondansetron (ZOFRAN) injection 4 mg 2 11/24 ondansetron ODT (ZOFRAN-ODT) disintegrating tablet 4 mg 11/24/2021 oxybutynin XL (DITROPAN-XL) extended release tablet 10 mg 1 11/24/2021 oxyCODONE-acetaminophen (PER COCET) 10-325 mg per tablet 1 tablet 1 11/24/[address] (PROTONIX) e xtended release tablet 40 mg 1 11/24/2021 senna-docusate (PERICOLACE) 8.6-50 mg per tablet 2 tablet 1 11/24/2021 simethicone (MYLICON) chewab le tablet 80 mg 1 11/24/2021 sodium chloride 0.9% flush 0.5-20 mL 3 11/11 sodium chloride 0.9% infusion 1 11/24/2021 tamsulosin (FLOMAX) extended release capsule 0.4 mg 1 11/24/2021 tiZANidine (ZANAFLEX) tablet 4 mg 1 022 traZODone (DESYREL) tablet 50 mg 1 11/24/19 General Supply Count Last Ordered Date First [...] 11/24/2021 documented in this encounter Care Teams Mold Bunch Trimmer Relationship Specialty [place] [id number] [facility] [place] [place] [address] PCP - General 11/12/16 03/11/22 documented as of this encounter
--- OUTSIDE RECORDS SUMMARY | 2024-10-11 02:00 | XMS_ITS | Encounter Summary ---
Author Organization [facility] Address [address] [place] [address] Phone Care Team Providers Care Plate Glass Grinder Name Role Phone Santino Funk MD Primary Care Provider + Reason for Visit * Reason Comments Follow-up Encounter Details Date Type Department Care Team (Late st Contact Info) Description 10/14/2020 8:20 AM VP PUBLIC RELATIONS Office Visit [facility] ([facility]) - [facility] E[facility] [address] [facility] [address] [place] [address] [place] [id number] Saqib Henry MD [address] [place] [address] Substernal thyroid goiter (Primary Dx) Social History Tobacco Use Types [...] on file Legal Sex Male 3:25 PM VP PUBLIC RELATIONS Gender Identity Not on file Sexual Orientation Not on file documented as of this encounter Last Filed Vital Signs Vital Sign Reading Time Taken Comments Blood Pressure - - Pulse - - Temperature - - Respiratory Rate - - Oxygen Saturation - - Inhaled Oxygen Concentration - - Weight 101.6 kg (224 lb) 10/14/2020 9:13 AM VP PUBLIC RELATIONS Height - - Body Mass Index 31.24 09/10/2020 2:17 PM VP PUBLIC RELATIONS documented in this encounter Progress Notes * Saqib Henry MD - 10/14/2020 8:20 AM CST [facility] Department of Otolaryngology Division of Head and Neck Surgery 10/14/2020 Abrahan Gtz 1944 [id number] Referred by: Dr. Santino Mgcarry Chief Complaint: Thyroid nodules HPI: Mr. Gtz is a 76 y.o. year old male with past history of asthma, depression, cataracts, and seizures who presents in consultation for thyroid goiter s/p substernal thyroidectomy (12/28/19). No issues post-op with PTH of 49. Feels voice is now stronger with no hoarseness compared to baseline. No other complaints although he is dealing with a number of medical issues and LE edema and knee pain. PAST MEDICAL HISTORY: Past Medical History: Diagnosis Date ??? Acute [...] Vision changes - (Added by TW Conv) PAST SURGICAL HISTORY: Past Surgical History: Procedure Laterality Date ??? CATARACT EXTRACTION, BILATERAL Bilateral 2018 ??? HERNIA REPAIR 1980 Hiatal Hernia repair ??? [place] ABDOMEN SURGERY PROC UNLISTED Hernia Repair - (Added by KIP Cason) ??? THYROIDECTOMY 12/27/2019 SOCIAL HISTORY: Social History Socioeconomic History ??? Marital status: [...] 1965 Quit date: 1966 Years since quittin.0 ??? Smokeless tobacco: Never Used Substance and [...] file Gets together: Not on file Attends religion service: Not on file Active member of [...] History Narrative Caffeine use : (Added by KIP Cason) Consumes alcohol : (Added by KIP Cason) FAMILY HISTORY: Family History Problem Relation Age of Onset ??? Heart failure Other Family history of Congestive heart failure; ??? Heart disease Other Family history of Heart disease; ??? Osteoarthritis Other Family history of Osteoarthritis; ??? Osteoporosis Other Family history of Osteoporosis; ??? Heart attack Mother ??? Heart attack Father ??? Heart attack Sister MEDICATIONS: Current Outpatient Medications Medication Sig Dispense Refill ??? acetaminophen 500 mg capsule Take 2 capsules (1,000 mg total) by mouth every 6 (six) hours (Patient taking differently: Take 650 mg by mouth every 6 (six) hours ) 30 tablet 1 ??? aspirin-sodium bicarbonate-citric acid (ELIUD-SELTZER) 324 mg tablet, effervescent Take 325 mg by mouth daily as needed (upset stomach) ??? bismuth subsalicylate (PEPTO-BISMOL) suspension Take 15 mL by mouth every 6 (six) hours as needed for indigestion ??? cholecalciferol (VITAMIN D-3) 2000 unit capsule Take 1 capsule (2,000 Units total) by mouth daily 30 capsule 3 ??? docusate sodium (COLACE) 100 mg capsule Take 1 capsule (100 mg total) by mouth 2 (two) times a day. 30 capsule 0 ??? donepeziL (ARICEPT) 10 mg tablet Take 1 tablet (10 mg total) by mouth nightly 30 tablet 5 ??? guaifenesin/pseudoephedrne HCl (MUCINEX D MAXIMUM STRENGTH ORAL) Take 15 mL by mouth daily as needed ??? HYDROcodone-acetaminophen (NORCO) 7.5-325 mg per tablet Take 1 tablet by mouth every 6 (six) hours as needed for pain ??? levothyroxine (SYNTHROID) 125 mcg tablet Take 125 mcg by mouth elementary school science teacher before breakfast ??? omeprazole (PriLOSEC) 20 mg capsule take 1 capsule by oral route every day before a meal (Patient taking differently: Take 20 mg by mouth 2 (two) times a day ) 0 0 ??? oxybutynin XL (DITROPAN-XL) 5 mg 24 hr tablet Take 5 mg by mouth 3 (three) times a day ??? oxyCODONE (ROXICODONE) 5 mg immediate release tablet Take 1 tablet (5 mg total) by mouth every 4 (four) hours as needed for pain 20 tablet 0 ??? polyethylene glycol (MIRALAX) 17 gram/dose powder Mix 1 scoop (17 g) in 8 oz of water and drinkdaily. 85 g 0 ??? pramipexole (MIRAPEX) 0.125 mg tablet 1-2 tablet nightly ??? sildenafil, antihypertensive, (REVATIO) 20 mg tablet Take 20 mg by mouth daily as needed 5 ??? tadalafiL (CIALIS) 20 mg tablet Take 1 tablet (20 mg total) by mouth daily as needed for erectile dysfunction 12 tablet 3 ??? tamsulosin (FLOMAX) 0.4 mg extended release capsule TK 1 C PO QD ??? temazepam (RESTORIL) 30 mg capsule TK ONE C PO QHS PRN ??? tiZANidine (ZANAFLEX) 2 mg tablet Take 2 tablets (4 mg total) by mouth nightly 1 to 2 tablets at bedtime 60 tablet 5 ??? triamcinolone (KENALOG) 0.1 % cream APPLY TID ON THE SKIN PRN ??? turmeric root extract 500 mg capsule Take by mouth ??? UNABLE TO FIND Take 1 each by mouth daily as needed Z Quil cough syrup ??? Ventolin HFA 90 mcg/actuation inhaler Inhale 2 puffs every 4 (four) hours as needed for wheezing No current facility-administered medications for this visit. ALLERGIES: Patient has no known allergies. IMMUNIZATIONS: Immunization History Administered Date(s) Administered ??? Influenza, Trivalent, High Dose, Split, Preservative Free, Intramuscular 12/30/2019 REVIEW OF SYSTEMS: The patient-completed Review of Systems was reviewed and was scanned as an attachment to this encounter. Constitutional: Negative for fever, weight loss and weight gain. HENT: Negative for ear pain, sore throat and hoarseness. Negative for difficulty swallowing. Cardiovascular: Negative for chest pain and dyspnea on exertion (Can climb up 2 floors). Respiratory: Is not experiencing shortness of breath. Gastrointestinal: Negative for nausea and vomiting. Neurological: Negative for headaches. Psychiatric: The patient is not nervous/anxious. Musculoskeletal: Denies muscle pain/weakness Heme/Lymph: Negative for lymph nodes, easy bruising PHYSICAL EXAM Vital Signs: Wt 101.6 kg (224 lb) BMI 31.24 kg/m?? General: Well-developed, well-nourished. No distress. Communication and Voice: Clear pitch and clarity Respiratory Respiratory effort: Equal inspiration and expiration without stridor Auscultation: Equal breath sounds bilaterally Cardiovascular Heart: regular rate and rhythm Peripheral Vascular: Warm extremities with equal pulses Neuro: Patient oriented to person, place, and time; Appropriate mood and affect; Gait is intact with no imbalance; Cranial nerves II-XII are intact Head and Face Inspection: Normocephalic and atraumatic without mass or lesion Palpation: Facial skeleton intact without bony stepoffs Facial Strength: Facial motility symmetric and full bilaterally Eyes: PERRLA. No nystagmus with normal extraocular motion bilaterally ENT Pinna: External ear intact and fully developed External canal: Canal is patent with intact skin Tympanic Membrane: Clear and mobile External nose: No scar or anatomic deformity Internal Nose: Septum intact and midline. No edema, polyp, or rhinorrhea. TMJ: No pain to palpation with full mobility Salivary Glands: No mass or tenderness Lips: No lesion. Oral cavity: No mass or lesion. Oropharynx: No mass or lesion. Tonsillar fossa symmetric. Base of tongue soft without mass or induration. Neck Trachea: Midline trachea. Thyroid: Absent. Incision C/D/I Lymphatics: No lymphadenopathy. DATA: Lab Reports: N/A Pathology Reports: FNA 11/27/19 FINAL DIAGNOSIS A. ??Thyroid, left inferior lobe, ultrasound-guided fine needle aspiration: ? - Benign Surgery 12/28/19 path Diagnosis: Thyroid, total thyroidectomy: ? - Macro- and microfollicular colloid nodules with degenerative changes consistent with multinodular goiter Radiology Reports: Chest CT 11/09/19 Findings: Normal heart size seen without pericardial effusion. Tortuous aorta with 3.4 cm ectasia of the mid ascending level and mild aortic valvular calcification is noted. Mild coronary artery calcification is present along the LAD. No mediastinal nor hilar lymphadenopathy identified in limitations of unenhanced CT. Enlarged thyroid with substernal extension and hypodense nodules measuring up to 4 x 3 cm on the left are partially imaged . A small hiatal hernia with adjacent clips extend to the GE junction noted. ?? Volume loss of the left hemithorax with elevated left hemidiaphragm is seen with left posterior medial basal opacities consistent with subsegmental atelectasis. There is no pulmonary consolidation or effusion. No septal thickening, traction bronchiectasis, nor honeycombing is seen to suggest interstitial lung disease . There is no mosaic attenuation suggesting air trapping. Large central airways are patent. ?? The bony thorax is unremarkable.. ?? Unenhanced appearance the liver is seen with 2 hypodensities largest on the right near the gallbladder fossa measuring 1.8 cm attenuation 7 consistent with a cyst. A small left upper pole renal cyst is noted. ?? IMPRESSION: LEFT LUNG VOLUME LOSS WITH DIAPHRAGMATIC ELEVATION AND LEFT BASAL SUBSEGMENTAL ATELECTASIS. POSTOPERATIVE CHANGE OF THE GE JUNCTION WITH SMALL HIATAL HERNIA. 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 RECOMMEND ULTRASOUND. NO ACUTE THORACIC PATHOLOGY. Ultrasound Thyroid 11/17/19 FINDINGS: ?? RIGHT LOBE: Measurements are 56 x 31 x 28 mm There is heterogenous echotexture with scattered hypervascularity.. There is a complex nodule within the inferior lobe measuring 1 x 16 x 21 mm with mild vascularity . Another similar-appearing nodule is seen in the upper pole measuring 11 x 5 x 9 mm more vascular. ?? LEFT LOBE: Measurements are 89 x 48 x 51 mm There is heterogenous echotexture and scattered areas of hypervascularity. There is a complex nodule within the mid to lower pole on imaging measuring 46 x 43 x 44 mm with slightly increased duplex flow A similar-appearing complex nodule even more vascular is present in the upper pole measuring 27 x 14 x 25 mm. ?? ISTHMUS: Measurements are 14 mm in width. There is heterogenous echotexture and hypervascularity. There were no focal abnormalities. . ?? IMPRESSION: ?? THE COMPLEX NODULES WITHIN EACH LOBE, DEPENDING UPON ASSOCIATED CLINICAL CONSIDERATIONS, MAY BE EITHER FOLLOWED WITH REPEAT ULTRASOUND AT 6 MONTH INTERVALS UNTIL STABLE OR MAY UNDERGO ADDITIONAL EVALUATION BY ULTRASOUND-GUIDED BIOPSY. COMPLICATION FROM BLEEDING RISK WILL BE HIGHER DUE TO THE HYPERVASCULARITY OF THE THYROID GLAND AND THE NODULES. Ultrasound FNA 11/27/19 FINDINGS: ?? Biopsy #: 1 ?? Size: 4.7 cm craniocaudal x 5.0 cm transverse x 3.9 cm AP. Maximum Size: 5.0 cm Location: Left lower ?? Heterogeneous composition, mixed solid and cystic, isoechoic with areas of hypoechoic tissue. ?? I independently reviewed the labs, pathology, and radiology on this patient, including personally reviewing the radiographic images in their entirety. I agree with the read as dictated the radiologist. I would highlight the finding of a large 4 cm nodule with 9 cm extension substernally. IMPRESSION/PLAN: My impression is that Mr. 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 Path benign and he is doing well. PTH WNL. - RTC in 12 months - synthroid being managed by PCP Saqib Henry MD PhD Inspector Packer Attending, Head and Neck Surgery Department of Otolaryngology [facility] [phone] (Clinical nurse Jacquie Hensley RN) Pager [phone] PUBLIC RELATIONS documented in this encounter Plan of Treatment Upcoming Encounters Date Type Department Care Team (Latest Contact Info) Description 10/23/2024 10:00 AM VP PUBLIC RELATIONS Hospital Encounter [facility] Operating Room [address] [place] [address] [place] [address] [facility] [address] [place] [address] 10/23/2024 10:00 AM VP PUBLIC RELATIONS - 10/23/2024 1:00 PM VP PUBLIC RELATIONS Surgery [facility] Operating Room [address] [place] [address] [place] [address] [id number] ARTHROPLASTY TOTAL KNEE LEFT Scheduled Procedures Name Priority Associated Diagnoses Date/Ti me ARTHROPLASTY TOTAL KNEE left knee osteoarthritis 10/23/2024 10:00 AM VP PUBLIC RELATIONS ESOPHAGOGASTRODUODENOSCOPY Dysphagia, unspecified type documented as of this encounter Visit Diagnoses Diagnosis Substernal thyroid goiter- Primary Goiter, unspecified documented in this encounter Discontinued Medications Medication Sig Discontinue Reason Start Date End Da te calcium carbonate (OS-KAREN) 1,250 MG (500 mg of elemental calcium) tablet Take 1 tablet (1,250 mg total) by mouth 3 (three) times a day Therapy completed 12/30/2019 10/14/2020 documented as of this encounter Care Teams Plate Glass Grinder Relationship Specialty [place] [address] [facility] [address], [place] [id number] PCP - General 11/12/16 03/11/22 documented as of this encounter
--- OUTSIDE RECORDS SUMMARY | 2024-10-11 02:00 | XMS_ITS | Encounter Summary ---
Author Organization [facility] Address [address] [place] [address] Care Team Providers Care Screwmaker Automatic Name Role Phone Santino Funk MD Primary Care Provider + Encounter Details Date Type Department Care Team (Late st Contact Info) Description 11/19/2021 Orders Only [facility] Testing Site - [facility]. Building [address] [place] [address] [address] [place] [address] [place] [address] [place] [id number] Pre-procedure lab exam (Primary Dx) Social History Tobacco Use Types [...] on file Legal Sex Male 3:25 PM PETAL CUTTER Gender Identity Not on file Sexual Orientation Not on file documented as of this encounter Progress Notes * Jeannie Kearney MA - 11/19/2021 8:52 PM CST Testing types: Pre-procedure ?? Date of Px/chemo/treatment/placement/transfer 11/24/2021 ?? Testing site patient will be sent to: [facility] ?? Date testing requested: 11/21/2021 ?? Testing: COVID-19 RNA ?? Is this the first COVID-19 test for this patient? Unknown ?? Does the patient currently work in a healthcare facility with direct patient contact? Unknown ?? Is the patient a resident of a congregate care or living setting? Unknown L CUTTER documented in this encounter Plan of Treatment Upcoming Encounters Date Type Department Care Team (Latest Contact Info) Description 10/23/2024 10:00 AM PETAL CUTTER Hospital Encounter [facility] Operating Room [address] [place] [address] [place] [address] [address] 10/23/2024 10:00 AM PETAL CUTTER - 10/23/2024 1:00 PM PETAL CUTTER Surgery [facility] Operating Room [address] [place] [address] [place] [address] [address] ARTHROPLASTY TOTAL KNEE LEFT Scheduled Procedures Name Priority Associated Diagnoses Date/Ti me ARTHROPLASTY TOTAL KNEE left knee osteoarthritis 10/23/2024 10:00 AM PETAL CUTTER ESOPHAGOGASTRODUODENOSCOPY Dysphagia, unspecified type documented as of this encounter Results * COVID-19 Coronavirus RNA Nasopharyngeal (11/21/2021 3:00 PM PETAL CUTTER) COVID-19 RNA Not Detected MARVIN FISHER Comment: Interpretive Data Synonyms for this test include: PCR and NAAT . ??Testing performed by the [facility] Molecular Infectious Disease Laboratory. The 2019-Novel [...] on November 14, 2020. Testing performed by: [facility], [address] [facility], [address] First COVID-19 test? Unknown [place] Comment:Testing performed by : [facility], [address] [place] [address], [id number] Employeed in healthcare? Unknown [place] Comment:Testing performed by : [facility], [address] [place] [address], [id number] Group care resident? Unknown [place] Comment:Testing performed by : [facility], [address] [place] [address], [id number] Hospitalized? No [place] Comment:Testing performed by : [facility], [address] [facility], [address] Is patient in ICU? No [place] Comment:Testing performed by : [facility], [address] [place] [address], [id number] Symptomatic as defined by CDC? No [place] Comment:Testing performed by : [facility], [address] [place] [address], [id number] Nasopharyngeal 11/21/2021 3: 00 PM PETAL CUTTER 11/21/2021 9:55 PM PETAL CUTTER Narrative [place] - 11/22/2021 3:28 AM PETAL CUTTER What is the reason for testing?->Screening prior to scheduled??procedure or surgery??(Batched) Giulia [facility] MICROBIOLOGY - GENERAL O RDERABLES Final Result [place] [address] [address] Department [place] [address] documented in this encounter Visit Diagnoses Diagnosis Pre-procedure lab exam- Primary Pre-procedural laboratory examination Pre-procedure lab exam Pre-procedural laboratory examination documented in this encounter Care Teams Screwmaker Automatic Relationship Specialty [place] [address] [address] [facility] [address] [place] [address] PCP - General 11/12/16 03/11/22 documented as of this encounter
--- OUTSIDE RECORDS SUMMARY | 2024-10-11 02:00 | XMS_ITS | Encounter Summary ---
Author Organization [facility] Address [address] [place] [address] Care Team Providers Care Artist Representative Name Role Phone Santino Funk MD Primary Care Provider + Encounter Details Date Type Department Care Team (Late st Contact Info) Description 11/28/2021 Telephone [facility] [address] [address] [place] [address] [facility] [place] [facility] [address] [place] [address] Social History Tobacco Use Types [...] relatives? Three times a week 11/25/2021 Attends [employer] Services Not on file 11/25 Active Member [...] on file Legal Sex Male 3:25 PM WARP DYEING TENDER Gender Identity Not on file Sexual Orientation Not on file documented as of this encounter Miscellaneous Notes * Telephone Encounter - Carol Aceves PA - 11/28/2021 3:07 PM CST Patient was sent home with Percocet for pain and just had surgery on Wednesday. He should expect some swelling from this and his injection that he had for the other side as well. If this continues to the injection side, he should probably go to the ED for evaluation. Thanks. I spoke with the patient. His operative leg is swollen and is not going down with ice and medication. His pain is fairly well controlled with his pain medication. He will try getting this elevated above the level of his heart and see if this helps. If this is not better within an hour, he will go to the ED for evaluation for DVT. Thanks. DYEING TENDER DYEING TENDER * Telephone Encounter - Joana Suresh - 11/28/2021 2:36 PM CST Patient requesting medication for swollen bilat knee [facility] [place] [place] DYEING TENDER documented in this encounter Plan of Treatment Upcoming Encounters Date Type Department Care Team (Latest Contact Info) Description 10/23/2024 10:00 AM WARP DYEING TENDER Hospital Encounter [facility] Operating Room [address] [place] [address] [place] [address] [address] 10/23/2024 10:00 AM WARP DYEING TENDER - 10/23/2024 1:00 PM WARP DYEING TENDER Surgery [facility] Operating Room [address] [place] [address] [place] [address] [address] ARTHROPLASTY TOTAL KNEE LEFT Scheduled Procedures Name Priority Associated Diagnoses Date/Ti me ARTHROPLASTY TOTAL KNEE left knee osteoarthritis 10/23/2024 10:00 AM WARP DYEING TENDER ESOPHAGOGASTRODUODENOSCOPY Dysphagia, unspecified type documented as of this encounter Visit Diagnoses Not on filedocumented in this encounter Care Teams Artist Representative Relationship Specialty [place] [address] [facility] [place] [facility] [address] [place] [address] PCP - General 11/12/16 03/11/22 documented as of this encounter
--- OUTSIDE RECORDS SUMMARY | 2024-10-11 02:00 | XMS_ITS | Encounter Summary ---
Author Organization [facility] Address [address] [place] [address] Care Team Providers Care Data Center Technician Name Role Phone Santino Funk MD Primary Care Provider + Reason for Visit * Reason Comments Post-op Encounter Details Date Type Department Care Team (Late st Contact Info) Description 12/09/2021 10:00 AM BARREL LATHE OPERATOR OUTSIDE Office Visit [facility] [address] [address] [place] [address] [address] Hx of total knee replacement, right (Primary Dx) Social History Tobacco Use Types Packs/Day Years Used Date Smoking Tobacco: Former Cigarettes 1 966 - 2719 Smokeless Tobacco: Never Alcohol Use Standard Drinks/Week [...] slept in a chcf (including now)? No 11/25/2021 Sex and Gender Information Value Date Recorded Sex Assigned at Not on file Legal Sex Male 3:25 PM BARREL LATHE OPERATOR OUTSIDE Gender Identity Not on file Sexual Orientation Not on file documented as of this encounter Last Filed Vital Signs Vital Sign Reading Time Taken Comments Blood Pressure - - Pulse - - Temperature - - Respiratory Rate - - Oxygen Saturation - - Inhaled Oxygen Concentration - - Weight - - Height 180.3 cm (5' 11 ) 12/09/2021 10:11 AM BARREL LATHE OPERATOR OUTSIDE Body Mass Index - - documented in this encounter Ordered Prescriptions Prescription Sig Dispense Quantity Refills Last Filled Start Date End Date oxyCODONE-acetamin ophen (PERCOCET) 10-325 mg per tabletIndications: Pain Take 1 tablet by mouth every 4 (four) hours as needed for pain 42 tablet 12/09/2021 01/09/2022 documented in this encounter Progress Notes * Jossie Montalvo PA - 12/09/2021 10:00 AM CST Images from the original note were not included. POST OP VISIT Subjective CHIEF COMPLAINT He had concerns including Post-op of the Right Knee. HISTORY OF PRESENT ILLINESS This is a follow-up visit for right total knee arthroplasty done 11/24/2021. Patient is weight-bearing as tolerated, is on a walker today but states he is already using a cane at home. His pain is controlled with oral medication, he is taking aspirin as prescribed. He has as last home therapy visitlater this week and needs orders to begin outpatient PT. MEDICATIONS He has a current medication list which includes the following prescription(s): aspirin, cholecalciferol, donepezil, levothyroxine, magnesium oxide, omeprazole, oxybutynin xl, polyethylene glycol, senna-docusate, senna-docusate, tamsulosin, tizanidine, trazodone, turmeric root extract, UNABLE TO FIND, and oxycodone-acetaminophen. ALLERGIES He has No Known Allergies. PHYSICAL EXAM Exam of the right knee demonstrates well-approximated staple line, julius removed without difficulty and Steri-Strips are applied. Motion is 3?? short of full extension with further flexion to 100??. No ligamentous laxity with varus or valgus testing. Calf is nontender and supple with no palpable cords. Neurovascular exam is intact. REVIEW OF X-RAYS/STUDIES/LABS (IF ORDERED) Assessment/Plan Abrahan was seen today for post-op. Diagnoses and all orders for this visit: Hx of total knee replacement, right - Ambulatory referral order to Physical Therapy -; Future Other orders - oxyCODONE-acetaminophen (PERCOCET) 10-325 mg per tablet; Take 1 tablet by mouth every 4 (four) hours as needed for pain Plan Patient is doing well 2 weeks status post right total knee arthroplasty. He was given a note to return to work 12/22/2021 with light duty restrictions, this can be amended as needed. Wound care instructions were given He will continue the aspirin for 2 more weeks and that may be discontinued Outpatient physical therapy is ordered Follow-up in 1 month, x-ray of the right knee will be taken at that time LORI Craig EL LATHE OPERATOR OUTSIDE documented in this encounter Plan of Treatment Upcoming Encounters Date Type Department Care Team (Latest Contact Info) Description 10/23/2024 10:00 AM BARREL LATHE OPERATOR OUTSIDE Hospital Encounter [facility] Operating Room [address] [place] [address] [place] [address] [id number] 10/23/2024 10:00 AM BARREL LATHE OPERATOR OUTSIDE - 10/23/2024 1:00 PM BARREL LATHE OPERATOR OUTSIDE Surgery [facility] Operating Room [address] [place] [address] [place] [address] [id number] ARTHROPLASTY TOTAL KNEE LEFT Scheduled Procedures Name Priority Associated Diagnoses Date/Ti me ARTHROPLASTY TOTAL KNEE left knee osteoarthritis 10/23/2024 10:00 AM BARREL LATHE OPERATOR OUTSIDE ESOPHAGOGASTRODUODENOSCOPY Dysphagia, unspecified type documented as of this encounter Visit Diagnoses Diagnosis Hx of total knee replacement, right- Primary documented in this encounter Discontinued Medications Medication Sig Discontinue Reason Start Date End Da te oxyCODONE-acetaminophen (PERCOCET) 10-325 mg per tabletIndications:Pain Take 1 tablet by mouth every 4 (four) hours as needed for pain Reorder 11/26/2021 12/09/2021 documented as of this encounter Care Teams Data Center Technician Relationship Specialty [place] [address] [address] PCP - General 11/12/16 03/11/22 documented as of this encounter
--- OUTSIDE RECORDS SUMMARY | 2024-10-11 02:00 | XMS_ITS | Encounter Summary ---
Author Organization [facility] Medical [facility] Address [address] [place] [address] Care Team Providers Care Mica Miner Name Role Phone Santino Funk MD Primary Care Provider + Reason for Visit * Reason Onset Date Comments LEAVING PRACTICE 02/25/2021 Encounter Details Date Type Department Care Team (Late st Contact Info) Description 02/25/2021 Telephone [facility] [address] [facility] [address] [place] [address] [place] [address] [facility] [address] [place] [address] LEAVING PRACTICE Social History Tobacco Use Types Packs/Day Years Used Date Smoking Tobacco: Former Cigarettes 1 196 - 6439 Smokeless Tobacco: Never Alcohol Use Standard Drinks/Week Comments Yes 1 (1 standard drink = 0.6 oz pur e alcohol) PHQ-2 Answer Date Recorded PHQ-2 Score 0 12/12/2018 Sex and Gender Information Value Date Recorded Sex Assigned at Not on file Legal Sex Male 3:25 PM FRONT DESK SPECIALIST Gender Identity Not on file Sexual Orientation Not on file documented as of this encounter Miscellaneous Notes * Telephone Encounter - Nayan Mahajan II, MD - 02/25/2021 9:09 AM CDT OK * Telephone Encounter - Severino Horn - 02/25/2021 8:14 AM CDT pt cxd leaving practice due to insurance documented in this encounter Plan of Treatment Upcoming Encounters Date Type Department Care Team (Latest Contact Info) Description 10/23/2024 10:00 AM FRONT DESK SPECIALIST Hospital Encounter [facility] Operating Room [address] [place] [address] [place] [address] [address] 10/23/2024 10:00 AM FRONT DESK SPECIALIST - 10/23/2024 1:00 PM FRONT DESK SPECIALIST Surgery [facility] Operating Room [address] [place] [address] [place] [address] [address] ARTHROPLASTY TOTAL KNEE LEFT Scheduled Procedures Name Priority Associated Diagnoses Date/Ti me ARTHROPLASTY TOTAL KNEE left knee osteoarthritis 10/23/2024 10:00 AM FRONT DESK SPECIALIST ESOPHAGOGASTRODUODENOSCOPY Dysphagia, unspecified type documented as of this encounter Visit Diagnoses Not on filedocumented in this encounter Care Teams Mica Miner Relationship Specialty [place] [address] [address] PCP - General 11/12/16 03/11/22 documented as of this encounter
--- OUTSIDE RECORDS SUMMARY | 2024-10-11 02:01 | XMS_ITS | Encounter Summary ---
Author Organization [facility] Address [address] [place] [address] Phone Care Team Providers Care Hoisting Engine Operator Name Role Phone Santino Funk MD Primary Care Provider + Reason for Visit * Reason Comments Thyroid Problem Encounter Details Date Type Department Care Team (Late st Contact Info) Description 04/08/2020 8:00 AM CDT [facility] - [facility] [address] [facility] [address] [place] [address] [place] [id number] Saqib Henry MD [address] [place] [address] Substernal thyroid goiter (Primary Dx) [...] on file Legal Sex Male 3:25 PM ER MANAGER Gender Identity Not on file Sexual Orientation Not on file documented as of this encounter Progress Notes * Saqib Henry MD - 04/08/2020 8:00 AM CDT [facility] Department of Otolaryngology Division of Head and Neck Surgery 04/08/2020 Abrahan Gtz Jr. 1944 [phone] Referred by: Dr. Santino Mcgarry Chief Complaint: Thyroid nodules HPI: Mr. Gtz is a 75 y.o. year old male with past history of asthma, depression, cataracts, and seizures who presents in consultation for thyroid goiter s/p substernal thyroidectomy (12/28/19). No issues post-op with PTH of 49. Feels voice is now stronger with no hoarseness compared to baseline. No other complaints although he is dealing with a number of medical issues and LE edema. PAST MEDICAL HISTORY: Past Medical History: Diagnosis [...] HERNIA REPAIR 1980 Hiatal Hernia repair ??? [place] ABDOMEN SURGERY PROC UNLISTED Hernia Repair - (Added by TW Conv) ??? THYROIDECTOMY 12/27/2019 SOCIAL HISTORY: Social History [...] Former Smoker Types: Cigarettes Start date: 1965 Last attempt to quit: 1966 Years since quittin.5 ??? Smokeless tobacco: Never Used Substance and [...] file Gets together: Not on file Attends holiness service: Not on file Active member of [...] Narrative Caffeine use : (Added by KIP Conv) Consumes alcohol : (Added by KIP Conv) FAMILY HISTORY: Family History Problem Relation Age [...] every 6 (six) hours 30 tablet 1 ??? aspirin-sodium bicarbonate-citric acid (ELIUD-SELTZER) 324 mg tablet, effervescent Take 325 mg by mouth daily as needed (upset stomach) ??? bismuth subsalicylate (PEPTO-BISMOL) suspension Take 15 mL by mouth every 6 (six) hours as needed for indigestion ??? calcium carbonate (OS-KAREN) 1,250 MG (500 mg of elemental calcium) tablet Take 1 tablet (1,250 mg total) by mouth 3 (three) times a day 90 tablet 1 ??? cholecalciferol (VITAMIN D-3) 2000 unit capsule Take 1 capsule (2,000 Units total) by mouth daily 30 capsule 3 ??? docusate sodium (COLACE) 100 mg capsule Take 1 capsule (100 mg total) by mouth 2 (two) times a day. (Patient taking differently: Take 100 mg by mouth 2 (two) times a day as needed ) 30 capsule 0 ??? donepeziL (ARICEPT) 10 mg tablet Take 1 tablet (10 mg total) by mouth nightly 30 tablet 5 ??? gabapentin (NEURONTIN) 300 mg capsule Take 1 to 2 capsules at bedtime 90 capsule 2 ??? guaifenesin/pseudoephedrne HCl (MUCINEX D MAXIMUM STRENGTH ORAL) Take 15 mL by mouth daily as needed ??? levothyroxine (SYNTHROID) 150 mcg tablet Take 1 tablet (150 mcg total) by mouth firmware software verification engineer before breakfast 60 tablet 1 ??? omeprazole (PriLOSEC) 20 mg capsule take 1 capsule by oral route every day before a meal (Patient taking differently: Take 20 mg by mouth 2 (two) times a day ) 0 0 ??? oxyCODONE (ROXICODONE) 5 mg immediate release tablet Take 1 tablet (5 mg total) by mouth every 4 (four) hours as needed for pain 20 tablet 0 ??? polyethylene glycol (MIRALAX) 17 gram/dose powder Mix 1 scoop (17 g) in 8 oz of water and drinkdaily. (Patient taking differently: Take 17 g by mouth daily as needed Mix 1 scoop (17 g) in 8 oz of water and drink daily.) 85 g 0 ??? sildenafil, antihypertensive, (REVATIO) 20 mg tablet Take 20 mg by mouth daily as needed 5 ??? tamsulosin (FLOMAX) 0.4 mg extended release capsule TK 1 C PO QD ??? temazepam (RESTORIL) 15 mg capsule Take 15 mg by mouth nightly as needed for sleep ??? triamcinolone (KENALOG) 0.1 % cream APPLY TID ON THE SKIN PRN ??? UNABLE TO FIND Take 1 each [...] nodes, easy bruising PHYSICAL EXAM Vital Signs: There were no vitals taken for this visit. General: Well-developed, well-nourished. No distress. Communication and [...] doing well. PTH WNL. - RTC in 6 months - synthroid being managed by PCP Saqib Henry MD PhD Inspector Balance Wheel Motion Attending, Head and Neck Surgery Department of Otolaryngology [facility] [phone] (Clinical nurse Jacquie Hensley RN) Pager [phone] documented in this encounter Plan of Treatment Upcoming Encounters Date Type Department Care Team (Latest Contact Info) Description 10/23/2024 10:00 AM ER MANAGER Hospital Encounter [facility] Operating Room [address] [place] [address] [place] [address] [facility] [address] [place], [place] [id number] 10/23/2024 10:00 AM ER MANAGER - 10/23/2024 1:00 PM ER MANAGER Surgery [facility] Operating Room [address] [place] [address] [place] [address] [facility] [address] [place] [address] ARTHROPLASTY TOTAL KNEE LEFT Scheduled Procedures Name Priority Associated Diagnoses Date/Ti me ARTHROPLASTY TOTAL KNEE left knee osteoarthritis 10/23/2024 10:00 AM ER MANAGER ESOPHAGOGASTRODUODENOSCOPY Dysphagia, unspecified type documented as of this encounter Procedures Procedure Name Priority Date/Time Associated Diagnosis Comments URINALYSIS AND REFLEX TO MICROSCOPIC AND CULTURE Routine 07/10/2020 2:56 PM CDT documented in this encounter Results * (ABNORMAL) Urinalysis reflex to microscopic and culture Urine (07/10/2020 2:56 PM CDT) Color, ur Yellow Yellow [facility] Clarity, ur Clear Clear [facility] Specific gravity, ur 1.021 1.010 - 1.025 [facility] pH, urine 6.0 [facility] Protein, ur ql Negative Negative [facility] Glucose, ur ql Negative Negative [facility] Ketones, ur Negative Negative [facility] Bilirubin, ur Negative Negative [facility] Blood, ur Negative Negative [facility] Urobilinogen, ur 2.0(A) <2.0 mg/dL [facility] Nitrite, ur Negative Negative [facility] Leukocyte esterase, ur Negative Negative [facility] UA reflex comment Reflex conditions for microscopic UA and culture not met. [facility] Urine 07/10/2020 2:56 PM CDT 07/10/2020 2:56 PM CDT Narrative [facility] - 07/10/2020 4:17 PM CDT ?? Urine pH is affected by diet, medications, systemic acid-base disturbances, and renal tubular function. ??pH may affect urinary stone formation. ??For example, urine pH below 6.0 may help reduce the tendency for calcium phosphate stones and pH greater than 6.0 may reduce the tendency for uric acid stone formation. Source: [facility]. Last revised 10-21-2017 us Santino Funk MD LAB MICROBIOLOGY - GENER AL ORDERABLES Final Result [facility] [address] [address] [place] [address] documented in this encounter Visit Diagnoses Diagnosis Substernal thyroid goiter- Primary Goiter, unspecified documented in this encounter Care Teams Hoisting Engine Operator Relationship Specialty [place] [address] [address] [facility] [address] [place] [address] PCP - General 11/12/16 03/11/22 documented as of this encounter
--- OUTSIDE RECORDS SUMMARY | 2024-10-11 02:01 | XMS_ITS | Encounter Summary ---
Author Organization [facility] Medical [facility] Address [address] [place] [address] Care Team Providers Care Marine Diesel Technician Name Role Phone Santino Funk MD Primary Care Provider + Encounter Details Date Type Department Care Team (Late st Contact Info) Description 02/14/2020 Telephone [facility] [address] [facility] [address] [address] Nayan [place], [place] [phone] [place] [address] [address] [address] Social History Tobacco Use Types Packs/Day Years Used Date Smoking Tobacco: Former Cigarettes 1 966 - 5782 Smokeless Tobacco: Never Alcohol Use Standard Drinks/Week Comments Yes 1 (1 standard drink = 0.6 oz pur e alcohol) PHQ-2 Answer Date Recorded PHQ-2 Score 0 12/12/2018 Sex and Gender Information Value Date Recorded Sex Assigned at Not on file Legal Sex Male 3:25 PM BOTTOM FILLER Gender Identity Not on file Sexual Orientation Not on file documented as of this encounter Miscellaneous Notes * Telephone Encounter - Lulu Warren MA - 02/14/2020 11:51 AM CDT Pt notified of results * Telephone Encounter - Lulu Warren MA - 02/14/2020 11:51 AM CDT ----- Message from Nayan Mahajan II, MD sent at 02/14/2020 11:27 AM CDT ----- Please tell the patient their result was normal.Study is normal for age Thank you Lulu,. documented in this encounter Plan of Treatment Upcoming Encounters Date Type Department Care Team (Latest Contact Info) Description 10/23/2024 10:00 AM BOTTOM FILLER Hospital Encounter [facility] Operating Room [address] [place] [address] [place] [address] [address] 10/23/2024 10:00 AM BOTTOM FILLER - 10/23/2024 1:00 PM BOTTOM FILLER Surgery [facility] Operating Room [address] [place] [address] [place] [address] [address] ARTHROPLASTY TOTAL KNEE LEFT Scheduled Procedures Name Priority Associated Diagnoses Date/Ti me ARTHROPLASTY TOTAL KNEE left knee osteoarthritis 10/23/2024 10:00 AM BOTTOM FILLER ESOPHAGOGASTRODUODENOSCOPY Dysphagia, unspecified type documented as of this encounter Visit Diagnoses Not on filedocumented in this encounter Care Teams Marine Diesel Technician Relationship Specialty [place] [address] [address] PCP - General 11/12/16 03/11/22 documented as of this encounter
--- OUTSIDE RECORDS SUMMARY | 2024-10-11 02:01 | XMS_ITS | Encounter Summary ---
Author Organization [facility] Healthcare Address [address] [place] [address] Care Team Providers Care Reconciler Name Role Phone Santino Funk MD Primary Care Provider + Reason for Referral * (Routine) - Closed Specialty Diagnoses / Procedures Referred By Contac t Referred To Contact Diagnoses Cardiac arrhythmia due to premature depolarization, unspecified type Procedures ECG [address] [place] [address] [facility] [place] [address] Phone: tel: fax: [address] [address] Referral ID Status Reason Start Date Expiration Date Visits Re quested Visits Authorized [id number] Closed 02/14/2020 08/25/2021 1 1 Reason for Visit * (Routine) - Closed Specialty Diagnoses / Procedures Referred By Contboone t Referred To Contact Diagnoses Cardiac arrhythmia due to premature depolarization, unspecified type Procedures ECG 12 [place] [address] [facility] [place] [address] Phone: tel: fax: [address] [address] Referral ID Status Reason Start Date Expiration Date Visits Re quested Visits Authorized [id number] Closed 02/14/2020 08/25/2021 1 1 Encounter Details Date Type Department Care Team (Latest Contact Info) Description 02/14/2020 7:45 AM CDT - 02/14/2020 7:47 AM CDT Hospital Encounter [facility] [address] [place] [address] [place] [address] [facility] [place] [address] Cardiac arrhythmia due to premature depolarization, unspecified type Discharge Disposition: Discharge to home or self care Social History Tobacco Use Types Packs/Day Years Used Date Smoking Tobacco: Former Cigarettes 1 947 - 9404 Smokeless Tobacco: Never Alcohol Use Standard Drinks/Week Comments Yes 1 (1 standard drink = 0.6 oz pur e alcohol) PHQ-2 Answer Date Recorded PHQ-2 Score 0 12/12/2018 Sex and Gender Information Value Date Recorded Sex Assigned at Not on file Legal Sex Male 3:25 PM GEM TECHNICIAN Gender Identity Not on file Sexual Orientation Not on file documented as of this encounter Medications at Time of Discharge cholecalciferol (VITAMIN D-3) 2000 unit capsule Take 1 capsule (2,000 Units total) by mouth daily 30 capsule 3 12/31/2019 tamsulosin (FLOMAX) 0.4 mg extended release capsule Take 1 capsule (0.4 mg total) by mouth nightly 01/29/2020 acetaminophen 500 mg capsuleIndications :Pain Take 2 capsules (1,000 mg total) by mouth every 6 (six) hours 30 tablet 1 12/30/2019 2 aspirin-sodium bicarbonate-citric acid (ELIUD-SELTZER) 324 mg tablet, effervescent Take 325 mg by mouth daily as needed (upset stomach) 1 bismuth subsalicylate (PEPTO-BISMOL) suspension Take 15 mL by mouth every 6 (six) hours as needed for indigestion 1 calcium carbonate (OS-KAREN) 1,250 MG (500 mg of elemental calcium) tablet Take 1 tablet (1,250 mg total) by mouth 3 (three) times a day 90 tablet 1 12/30/2019 1 docusate sodium (COLACE) 100 mg capsuleIndications :constipation Take 1 capsule (100 mg total) by mouth 2 (two) times a day. 30 capsule 12/10/2018 2 donepeziL (ARICEPT) 5 mg tablet Take 1 tablet (5 mg total) by mouth nightly 30 tablet 5 02/07/2020 0 gabapentin (NEURONTIN) 300 mg capsuleIndications :Numbness and tingling Take 1 to 2 capsules at bedtime 90 capsule 2 02/07/2020 0 guaifenesin/pseudo ephedrne HCl (MUCINEX D MAXIMUM STRENGTH ORAL)Indications:c ough Take 15 mL by mouth daily as needed 1 levothyroxine (SYNTHROID) 150 mcg tablet Take 1 tablet (150 mcg total) by mouth fuel cell engineer before breakfast 60 tablet 1 12/31/2019 0 omeprazole (PriLOSEC) 20 mg capsule take 1 capsule by oral route every day before a meal 0 0 10/21/2016 4 oxyCODONE (ROXICODONE) 5 mg immediate release tabletIndications: Pain Take 1 tablet (5 mg total) by mouth every 4 (four) hours as needed for pain 20 tablet 12/30/2019 1 polyethylene glycol (MIRALAX) 17 gram/dose powderIndications: constipation Mix 1 scoop (17 g) in 8 oz of water and drink daily. 85 g 12/10/2018 1 sildenafil, antihypertensive, (REVATIO) 20 mg tabletIndications: erectile dysfunction Take 20 mg by mouth daily as needed 5 11/11/2018 1 temazepam (RESTORIL) 15 mg capsuleIndications :Insomnia Take 15 mg by mouth nightly as needed for sleep 01/21/2018 0 triamcinolone (KENALOG) 0.1 % cream APPLY TID [...] (Latest Contact Info) Description 10/23/2024 10:00 AM GEM TECHNICIAN Hospital Encounter [facility] Operating Room [address] [place] [address] [place] [address] [id number] 10/23/2024 10:00 AM GEM TECHNICIAN - 10/23/2024 1:00 PM [facility] Surgery [facility] Operating Room [id number] [place] [address] [place] [address] [id number] ARTHROPLASTY TOTAL KNEE LEFT Scheduled Procedures Name Priority Associated Diagnoses Date/Ti me ARTHROPLASTY TOTAL KNEE left knee osteoarthritis 10/23/2024 10:00 AM GEM TECHNICIAN ESOPHAGOGASTRODUODENOSCOPY Dysphagia, unspecified type documented as of this encounter Procedures Procedure Name Priority Date/Time Associated Diagnosis Comments ECG 12-LEAD Routine 02/14/2020 10:45 AM CDT Cardiac arrhythmia due to premature depolarization, unspecified type documented in this encounter Results * ECG 12 lead (02/14/2020 10:45 AM CDT) 02/14/2020 10:4 5 AM CDT Narrative [facility] - 02/14/2020 12:18 PM CDT Vent Rate: 56 bpm RR Interval: 1069 msec [place] Interval: 167 msec QRS Duration: 84 msec QT Interval: 411 msec QTC Interval: 402 msec P-R-T [place]: 68 - -12 - 53 degrees SINUS BRADYCARDIA WITH OCCASIONAL VENTRICULAR PREMATURE COMPLEXES MINIMAL VOLTAGE CRITERIA FOR LVH, CONSIDER NORMAL VARIANT ??[MEETS CRITERIA IN ONE OF: R(aVL), S(V1), R(V5), R(V5/V6)+S(V1)] BORDERLINE ECG Electronically Signed By: Dr. Becky Mcfadden [facility] us Santino Funk MD ECG ORDERABLES Final Re sult [facility] documented in this encounter Visit Diagnoses Diagnosis Cardiac arrhythmia due to premature depolarization, unspecified type documented in this encounter Care Teams Reconciler Relationship Specialty [place] [address] [facility] [address] [place] [address] PCP - General 11/12/16 03/11/22 documented as of this encounter
--- OUTSIDE RECORDS SUMMARY | 2024-10-11 02:01 | XMS_ITS | Encounter Summary ---
Author Organization [facility] Medical Group Address [address] [facility] [address] [place] [address] Care Team Providers Care Knotting Machine Operator Portable Name Role Phone Santino Funk MD Primary Care Provider + Reason for Visit * Reason Comments Alzheimer's Disease Encounter Details Date Type Department Care Team (Late st Contact Info) Description 02/21/2020 10:30 AM CDT Office Visit [facility] [address] [facility] [address] [address] Nayan Mahajan II, [place] [id number] [place] [address], [place] [address] Late onset Alzheimer's disease without behavioral disturbance (CMS/HCC) (Primary Dx); Benign paroxysmal positional vertigo, unspecified laterality; Left sided numbness Social History Tobacco Use Types Packs/Day Years Used Date Smoking Tobacco: Former Cigarettes 1 966 - 4746 Smokeless Tobacco: Never Alcohol Use Standard Drinks/Week Comments Yes 1 (1 standard drink = 0.6 oz pur e alcohol) PHQ-2 Answer Date Recorded PHQ-2 Score 0 12/12/2018 Sex and Gender Information Value Date Recorded Sex Assigned at Not on file Legal Sex Male 3:25 PM CURTAIN SUPERVISOR Gender Identity Not on file Sexual Orientation Not on file documented as of this encounter Last Filed Vital Signs Vital Sign Reading Time Taken Comments Blood Pressure 120/70 02/21/2020 10:32 AM CDT Pulse 56 02/21/2020 10:32 AM CDT Temperature - - Respiratory Rate 16 02/21/2020 10:32 AM CDT Oxygen Saturation - - Inhaled Oxygen Concentration - - Weight 99 kg (218 lb 4.4 oz) 02/21/2020 10:32 AM CDT Height 182.9 cm (6' 0.01 ) 02/21/2020 10:32 AM C DT Body Mass Index 29.6 02/21/2020 10:32 AM CDT documented in this encounter Patient Instructions * Patient Instructions* Nayan Mahajan II, MD - 02/21/2020 10:30 AM CDT Increase Donepezil 5 mg tablets to two tablets a day. When you have have only two weeks left on the medication eul[place] the office so a new prescription for the 10 mg tablets of Donepezil can be sent to your pharmacy. On you tube search [place] doctor treat dizziness she has exercised for your positonal vertigo. Continue taking two baby Asprin a day Return in 6 months documented in this encounter Progress Notes * Nayan Mahajan II, MD - 02/21/2020 10:30 AM CDT Subjective: Patient ID: Abrahan Gtz Jr. is a 75 y.o. male with dementia of the Alzheimer's type vertigo impairment of balance and left-sided numbness and tingling. HPI The patient returns today for re-evaluation and follow-up. He continues to complain of impairment of memory. He does not feel his memory is any better. He is currently on donepezil 5 mg per day without any side effects. There is no report of loss of appetite stomach upset or diarrhea or syncope. The patient continues to have brief episodes of impairment of balance specially when he gets out ofbed too quickly or out of a chair too quickly or he makes a Southern turn. His gait is slow becauseof his degenerative arthritis of his knees for which total knee arthroplasty was recommended but hewants to avoid this so he has been getting cortisone injections. He reports that the numbness and tingling of the left side of the body is better. He is taking 2 baby aspirins a day. The patient had an MRI of the brain the films I personally independently reviewed and discussed with the patient this shows atrophy microvascular disease unchanged from previous there is no evidence of any new stroke or other acute changes. His carotid Doppler study showed no evidence of any hemodynamically significant stenosis his transthoracic echocardiogram showed a good ejection fraction no evidence of any right to left shunt and no thrombus. These test results were discussed with the patient as well. Review of Systems Constitutional: Negative for activity change, appetite change and fever. HENT: Negative for hearing loss, sore throat and tinnitus. Eyes: Negative for visual disturbance. Respiratory: Negative for cough and shortness of breath. Cardiovascular: Negative for chest pain and palpitations. Gastrointestinal: Negative for abdominal pain, constipation, diarrhea and nausea. Musculoskeletal: Positive for arthralgias and gait problem. Negative for back pain. Neurological: Positive for [...] 3 objects immediately. At 3 minutes recalls 2 of 3 objects. Recalls 3 of 3 objects with prompting. Speech is normal. Language isfluent with no aphasia. Able to perform serial calculations. Cranial Nerves CN II: Visual white full [...] and proprioception in all four extremities. Reflexes Right Left Brachioradialis 1+ 1+ Biceps 1+ 1+ Triceps 1+ 1+ Patellar 1+ 1+ Achilles 0 0 Coordination Jnnnqb-[id number]-[id number], rapid alternating movements and vlgu-sd-[id number] normal bilaterally without dysmetria. Gait Slow and cautious. Physical Exam Vitals signs reviewed. Constitutional: General: [...] rhythm. Heart sounds: Normal heart sounds. Pulmonary: Breath sounds: Normal breath sounds. Abdominal: Palpations: Abdomen is soft. Musculoskeletal: Normal range of motion. Skin: General: Skin is warm. Neurological: Mental Status: He is alert. Coordination: Coordination is intact. Deep Tendon Reflexes: Strength normal. Reflex Scores: Tricep reflexes are 1+ on [...] normal. Assessment/Plan: 1. Dementia of the Alzheimer's type. The patient has an improvement in his cognitive evaluation this morning. He is currently on 5 mg of donepezil and tolerating the medication. I instructed him to double the dose so that he is taking to the 5 mg tablets daily and when this is about to be consume he has been instructed to call the office so that the 10 mg tablet prescription can be sent to the pharmacy. 2. Benign paroxysmal positional vertigo he was given instructions and a video to watch for exercises for this condition. 3. Numbness and tingling. This is improving continue with aspirin and treatment of stroke risk factors return for a follow-up in 6 months. Medications Current Outpatient Medications: ??? acetaminophen 500 mg capsule, Take 2 capsules (1,000 mg total) by mouth every 6 (six) hours, Disp: 30 tablet, Rfl: 1 ??? aspirin-sodium bicarbonate-citric acid (ELIUD-SELTZER) 324 mg tablet, effervescent, Take 325 mg by mouth daily as needed (upset stomach), Disp: , Rfl: ??? bismuth subsalicylate (PEPTO-BISMOL) suspension, Take 15 mL by mouth every 6 (six) hours as needed for indigestion, Disp: , Rfl: ??? calcium carbonate (OS-EULALIA) 1,250 MG (500 mg of elemental calcium) tablet, Take 1 tablet (1,250 mg total) by mouth 3 (three) times a day, Disp: 90 tablet, Rfl: 1 ??? cholecalciferol (VITAMIN D-3) 2000 unit capsule, Take 1 capsule (2,000 Units total) by mouth daily, Disp: 30 capsule, Rfl: 3 ??? docusate sodium (COLACE) 100 mg capsule, Take 1 capsule (100 mg total) by mouth 2 (two) times aday. (Patient taking differently: Take 100 mg by mouth 2 (two) times a day as needed ), Disp: 30 capsule, Rfl: 0 ??? donepeziL (ARICEPT) 5 mg tablet, Take 1 tablet (5 mg total) by mouth nightly, Disp: 30 tablet, Rfl: 5 ??? gabapentin (NEURONTIN) 300 mg capsule, Take 1 to 2 capsules at bedtime, Disp: 90 capsule, Rfl: 2 ??? guaifenesin/pseudoephedrne HCl (MUCINEX D MAXIMUM STRENGTH ORAL), Take 15 mL by mouth daily as needed, Disp: , Rfl: ??? levothyroxine (SYNTHROID) 150 mcg tablet, Take 1 tablet (150 mcg total) by mouth soil tester before breakfast, Disp: 60 tablet, Rfl: 1 ??? omeprazole (PriLOSEC) 20 mg capsule, take 1 capsule by oral route every day before a meal (Patient taking differently: Take 20 mg by mouth 2 (two) times a day ), Disp: 0, Rfl: 0 ??? oxyCODONE (ROXICODONE) 5 mg immediate release tablet, Take 1 tablet (5 mg total) by mouth every4 (four) hours as needed for pain, Disp: 20 tablet, Rfl: 0 ??? polyethylene glycol (MIRALAX) 17 gram/dose powder, Mix 1 scoop (17 g) in 8 oz of water and drink daily. (Patient taking differently: Take 17 g by mouth daily as needed Mix 1 scoop (17 g) in 8 oz of water and drink daily.), Disp: 85 g, Rfl: 0 ??? sildenafil, antihypertensive, (REVATIO) 20 mg tablet, [...] THE SKIN PRN, Disp: , Rfl: ??? UNABLE TO FIND, Take 1 each by mouth daily as needed Z Quil cough syrup, Disp: , Rfl: ??? Ventolin HFA 90 mcg/actuation inhaler, Inhale [...] Start date: 1965 Last attempt to quit: 1967 Years since quittin.4 ??? Smokeless tobacco: Never Used Substance and [...] file Gets together: Not on file Attends gnosticism service: Not on file Active member of [...] Consumes alcohol : (Added by KIP Conv) documented in this encounter Plan of Treatment Upcoming Encounters Date Type Department Care Team (Latest Contact Info) Description 10/23/2024 10:00 AM CURTAIN SUPERVISOR Hospital Encounter [facility] Operating Room [address] [place] [address] [place] [address] [facility] [place] [place] [address] 10/23/2024 10:00 AM CURTAIN SUPERVISOR - 10/23/2024 1:00 PM CURTAIN SUPERVISOR Surgery [facility] Operating Room [address] [place] [address] [place] [address] [address] ARTHROPLASTY TOTAL KNEE LEFT Scheduled Procedures Name Priority Associated Diagnoses Date/Ti me ARTHROPLASTY TOTAL KNEE left knee osteoarthritis 10/23/2024 10:00 AM CURTAIN SUPERVISOR ESOPHAGOGASTRODUODENOSCOPY Dysphagia, unspecified type documented as of this encounter Visit Diagnoses Diagnosis 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)- Primary Benign paroxysmal positional vertigo, unspecified laterality Left sided numbness documented in this encounter Care Teams Knotting Machine Operator Portable Relationship Specialty [place] [address] [facility] [place] [address] PCP - General 11/12/16 03/11/22 documented as of this encounter
--- OUTSIDE RECORDS SUMMARY | 2024-10-11 02:01 | XMS_ITS | Encounter Summary ---
Author Organization [facility] Medical Group Address [address] [facility] [address] [place] [address] Care Team Providers Care Buggy Operator Name Role Phone Santino Funk MD Primary Care Provider + Reason for Visit * Reason Onset Date Comments prescription request Donepezil 04/04/2020 Encounter Details Date Type Department Care Team (Late st Contact Info) Description 04/04/2020 Telephone [facility] [address] [facility] [address], [place] [address] [place] [address] [facility] [address], [place] [address] prescription request Donepezil Social History Tobacco Use Types Packs/Day Years Used Date Smoking Tobacco: Former Cigarettes 1 966 - 5866 Smokeless Tobacco: Never Alcohol Use Standard Drinks/Week Comments Yes 1 (1 standard drink = 0.6 oz pur e alcohol) PHQ-2 Answer Date Recorded PHQ-2 Score 0 12/12/2018 Sex and Gender Information Value Date Recorded Sex Assigned at Not on file Legal Sex Male 3:25 PM POULTRY SCIENTIST Gender Identity Not on file Sexual Orientation Not on file documented as of this encounter Ordered Prescriptions Prescription Sig Dispense Quantity Refills Last Filled Start Date End Date donepeziL (ARICEPT) 10 mg tabletIndications: 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) Take 1 tablet (10 mg total) by mouth nightly 30 tablet 5 04/04/2020 0 documented in this encounter Miscellaneous Notes * Addendum Note - Lawrence Lozada MA - 04/04/2020 10:23 AM CDTAddended by: LAWRENCE LOZADA on: 04/04/2020 10:23 AM Modules accepted: Orders * Telephone Encounter - Lawrence Lozada MA - 04/04/2020 10:22 AM CDT rx sent per cmy last office note * Telephone Encounter - Gwendolyn Smith - 04/04/2020 9:29 AM CDT Patient came into the office stating he is out of his Donepezil due to taking 2 of the 5 mg instructed per [facility] from his last office visit and needs a new prescription sent to his pharmacy with new dosage. Please, advise. Thank you documented in this encounter Plan of Treatment Upcoming Encounters Date Type Department Care Team (Latest Contact Info) Description 10/23/2024 10:00 AM POULTRY SCIENTIST Hospital Encounter [facility] Operating Room [address] [place] [address] [place] [address] [address] [address] 10/23/2024 10:00 AM POULTRY SCIENTIST - 10/23/2024 1:00 PM POULTRY SCIENTIST Surgery [facility] Operating Room [address] [place] [address] [place] [address] [address] ARTHROPLASTY TOTAL KNEE LEFT Scheduled Procedures Name Priority Associated Diagnoses Date/Ti me ARTHROPLASTY TOTAL KNEE left knee osteoarthritis 10/23/2024 10:00 AM POULTRY SCIENTIST ESOPHAGOGASTRODUODENOSCOPY Dysphagia, unspecified type documented as of this encounter Visit Diagnoses Diagnosis 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)- Primary documented in this encounter Discontinued Medications Medication Sig Discontinue Reason Start Date End Da te donepeziL (ARICEPT) 5 mg tablet Take 1 tablet (5 mg total) by mouth nightly Dose adjustment 02/07/2020 04/04/2020 documented as of this encounter Care Teams Buggy Operator Relationship Specialty [place] [address] [address] PCP - General 11/12/16 03/11/22 documented as of this encounter
--- OUTSIDE RECORDS SUMMARY | 2024-10-11 02:01 | XMS_ITS | Encounter Summary ---
Author Organization [facility] Address [address] [place] [address] Phone Care Team Providers Care Vice President Of Product Marketing Name Role Phone Santino Funk MD Primary Care Provider + Encounter Details Date Type Department Care Team (Late st Contact Info) Description 01/01/2020 Telephone [facility] - [facility] ENT [address] [facility] Advanced Medicine 11th [place] [address] [place] [address] Jacquie Hensley RN Social History Tobacco Use Types Packs/Day Years Used Date Smoking Tobacco: Former Cigarettes 1 966 - 1967 Smokeless Tobacco: Never Alcohol Use Standard Drinks/Week Comments Yes 1 (1 standard drink = 0.6 oz pur e alcohol) PHQ-2 Answer Date Recorded PHQ-2 Score 0 12/12/2018 Sex and Gender Information Value Date Recorded Sex Assigned at Not on file Legal Sex Male 3:25 PM WINDER OPERATOR Gender Identity Not on file Sexual Orientation Not on file COVID-19 Exposure Response Date Recorded In the last month, have you been in contact with someone who was confirmed or suspected to have Coronavirus / COVID-19? No / Unsure 01/01/2020 2:13 AM CDT documented as of this encounter Miscellaneous Notes * Telephone Encounter - Jacquie Hensley RN - 01/01/2020 6:17 PM CDT Spoke with patient today and patient stated had seen his PCP for his B/P and was feeling better. Denies any tingling or numbness in the face or lips. Is feeling much better and will keep post op appt. For next week. ----- Message from Patricia Mejía sent at 01/01/2020 10:20 AM CDT ----- Regarding: POST OP CONCERNS Contact: Good morning The patient was told to be seen today because he was in the ER last night due to tingling in his lips and leg on the left side if the body. Please give him a call M[place]ORIE. Thanks! documented in this encounter Plan of Treatment Upcoming Encounters Date Type Department Care Team (Latest Contact Info) Description 10/23/2024 10:00 AM WINDER OPERATOR Hospital Encounter [facility] Operating Room [address] [place] [address] [place] [address] [address] 10/23/2024 10:00 AM WINDER OPERATOR - 10/23/2024 1:00 PM WINDER OPERATOR Surgery [facility] Operating Room [address] [place] [address] [place] [address] [address] ARTHROPLASTY TOTAL KNEE LEFT Scheduled Procedures Name Priority Associated Diagnoses Date/Ti me ARTHROPLASTY TOTAL KNEE left knee osteoarthritis 10/23/2024 10:00 AM WINDER OPERATOR ESOPHAGOGASTRODUODENOSCOPY Dysphagia, unspecified type documented as of this encounter Visit Diagnoses Not on filedocumented in this encounter Care Teams Vice President Of Product Marketing Relationship Specialty [place] [address] [facility] [address] [place] [address] PCP - General 11/12/16 03/11/22 documented as of this encounter
--- OUTSIDE RECORDS SUMMARY | 2024-10-11 02:01 | XMS_ITS | Encounter Summary ---
Author Organization [facility] Address [address] [place] [address] Care Team Providers Care Support Engineer Name Role Phone Feliberto Dubon MD Primary Care Provider + Reason for Referral * (Routine) - Closed Specialty Diagnoses / Procedures Referred By Contac t Referred To Contact Diagnoses Cardiac arrhythmia, unspecified cardiac arrhythmia type Procedures 48 [place] [address] [address] [facility] [place] [address] Phone: tel: fax: [address] [phone] Referral ID Status Reason Start Date Expiration Date Visits Re quested Visits Authorized [id number] Closed 02/12/2020 08/23/2021 1 1 Reason for Visit * (Routine) - Closed Specialty Diagnoses / Procedures Referred By Contac t Referred To Contact Diagnoses Cardiac arrhythmia, unspecified cardiac arrhythmia type Procedures 48 [place] [address] [address] [facility] [place] [address] Phone: tel: fax: [address] [phone] Referral ID Status Reason Start Date Expiration Date Visits Re quested Visits Authorized [id number] Closed 02/12/2020 08/23/2021 1 1 Encounter Details Date Type Department Care Team (Latest Contact Info) Description 02/14/2020 7:48 AM CDT - 02/14/2020 7:54 AM CDT Hospital Encounter [facility] Non-invasive Cardiac Diagnostic Testing [address] [place] [address] [place] [address] [facility] [address] Cardiac arrhythmia, unspecified cardiac arrhythmia type Discharge Disposition: Discharge to home or self care Social History Tobacco Use Types Packs/Day Years Used Date Smoking Tobacco: Former Cigarettes 1 64 9987 Smokeless Tobacco: Never Alcohol Use Standard Drinks/Week Comments Yes 1 (1 standard drink = 0.6 oz pur e alcohol) PHQ-2 Answer Date Recorded PHQ-2 Score 0 12/12/2018 Sex and Gender Information Value Date Recorded Sex Assigned at Not on file Legal Sex Male 3:25 PM CASTING ROOM HELPER Gender Identity Not on file Sexual [...] 1 tablet (150 mcg total) by mouth vice president safety before breakfast 60 tablet 1 12/31/2019 0 [...] (Latest Contact Info) Description 10/23/2024 10:00 AM CASTING ROOM HELPER Hospital Encounter [facility] Operating Room [address] [place] [address] [place] [address] [id number] 10/23/2024 10:00 AM CASTING ROOM HELPER - 10/23/2024 1:00 PM [facility] Surgery [facility] Operating Room [address] [place] [address] [place] [address] [id number] ARTHROPLASTY TOTAL KNEE LEFT Scheduled Procedures Name Priority Associated Diagnoses Date/Ti me ARTHROPLASTY TOTAL KNEE left knee osteoarthritis 10/23/2024 10:00 AM CASTING ROOM HELPER ESOPHAGOGASTRODUODENOSCOPY Dysphagia, unspecified type documented as of this encounter Procedures Procedure Name Priority Date/Time Associated Diagnosis Comments HOLTER MONITOR 48 HR Routine 02/14/2020 11:48 AM CDT Cardiac arrhythmia, unspecified cardiac arrhythmia type documented in this encounter Results * 48 HR Holter Monitor (02/14/2020 11:48 AM CDT) Anatomical Region Laterality Modality Electrocardiogra phy 02/14/2020 11:3 2 AM CDT Narrative 02/23/2020 2:49 PM CDT [address] [address] HOLTER MONITOR Patient Name: ABRAHAN GTZ : 1944 Study Date: 02/14/2020 11:32:08 AM Gender: ? Tech: ??Ref.Provider: FELIBERTO SCHWARTZ Height(Cm): ??BSA: Weight(Kg): ??Order Provider: FELIBERTO DUBON Procedures: Holter Report: Holter Monitor Report. Indications: Abnormal ECG. Measurements: Holter_Data Measurement Value Units Min Rate: 46 BPM Min Rate Timestamp: 18:59:46 Max Rate: 108 BPM Max Rate Timestamp: 13:12:33 Mean Rate: 71 BPM AFib (% of study): 0 percent AFib Peak Rate: 0.0 BPM Singlets (PACs): 23 events Couplets (PACs): 3 events Runs (SVT): 0 events Singlets (PVCs): [address]502 events Couplets (PVCs): 62 events Runs (VT): 10 events Longest RR: 2.74 sec Longest RR Timestamp: 19:00:46 RRs > 2sec: 0 events SVT Fastest Run: 0 BPM SVT Longest Run: 0 beats VT Fastest Run: 162 BPM VT Longest Run: 4 beats Findings: Protocol: Recording Duration (Ordered): 48 hr, 0 min. Recording Duration (Actual): 47 hr, 13 min. Recorder: H3+. Total QRS: [id number]. Date Recorded: 2020-02-14 11:32:08. Date Processed: 2020-02-14 00:00:00. Computer Repair Instructor: ____. Application Tech: . Study Quality: Study quality is fair. Significant artifact and lead loss was seen on rhythm strips. Conclusions: 1. Significant artifact was seen in some rhythm strips. Predominant underlying rhythm is sinus rhythm, with episodes of sinus bradycardia and tachycardia, heart rate ranges between 46 beats per minute to 108 beats per minute, average heart rate 71 beats per minute. Frequent ventricular ectopy was seen for the duration of the study[place] [address] for the duration of the study. Ventricular ectopy consisted of single PVCs, couplets, ventricular runs. Occasional supraventricular ectopy was seen. No other significant arrhythmias or heart blocks were noted. Patient did not report any symptoms. Electronically Signed By: Josias Galvin MD, [facility] 2020-02-23 14:48:58 CDT Procedure Note Josias Galvin MD - 02/23/2020 [place] [address] HOLTER MONITOR Patient Name: ABRAHAN GTZ : 1944 Study Date: 02/14/2020 11:32:08 AM Gender: ? Tech: Ref.Provider: FELIBERTO SCHWARTZ Height(Cm): BSA: Weight(Kg): Order Provider: FELIBERTO DUBON Procedures: Holter Report: Holter Monitor Report. Indications: Abnormal ECG. Measurements: Holter_Data Measurement Value Units Min Rate: 46 BPM Min Rate Timestamp: 18:59:46 Max Rate: 108 BPM Max Rate Timestamp: 13:12:33 Mean Rate: 71 BPM AFib (% of study): 0 percent AFib Peak Rate: 0.0 BPM Singlets (PACs): 23 events Couplets (PACs): 3 events Runs (SVT): 0 events Singlets (PVCs): 42583 events Couplets (PVCs): 62 events Runs (VT): 10 events Longest RR: 2.74 sec Longest RR Timestamp: 19:00:46 RRs > 2sec: 0 events SVT Fastest Run: 0 BPM SVT Longest Run: 0 beats VT Fastest Run: 162 BPM VT Longest Run: 4 beats Findings: Protocol: Recording Duration (Ordered): 48 hr, 0 min. Recording Duration (Actual): 47 hr, 13 min. Recorder: H3+. Total QRS: [id number]. Date Recorded: 2020-02-14 11:32:08. Date Processed: 2020-02-14 00:00:00. Computer Repair Instructor: ____. Application Tech: sm. Study Quality: Study quality is fair. Significant artifact and lead loss was seen onrhythm strips. Conclusions: 1. Significant artifact was seen in some rhythm strips. Predominantunderlying rhythm is sinus rhythm, with episodes of sinus bradycardia and tachycardia, heartrate ranges between 46 beats per minute to 108 beats per minute, average heart rate 71beats per minute. Frequent ventricular ectopy was seen for the duration of thestudy[place] [address] for the duration of the study. Ventricularectopy consisted of single PVCs, couplets, ventricular runs. Occasional supraventricularectopy was seen. No other significant arrhythmias or heart blocks were noted. Patient did notreport any symptoms. Electronically Signed By: Josias Galvin MD, [facility] 2020-02-23 14:48:58 CDT Feliberto Dubon MD [facility] PROC EDURES Final Result documented in this encounter Visit Diagnoses Diagnosis Cardiac arrhythmia, unspecified cardiac arrhythmia type documented in this encounter Care Teams Support Engineer Relationship Specialty Start [place] [address] [facility] [place] [address] PCP - General 11/12/16 03/11/22 documented as of this encounter
--- OUTSIDE RECORDS SUMMARY | 2024-10-11 02:01 | XMS_ITS | Encounter Summary ---
Author Organization [facility] Address [address] [place] [address] Phone Care Team Providers Care Bobbin Disker Name Role Phone Santino Funk MD Primary Care Provider + Encounter Details Date Type Department Care Team (Late st Contact Info) Description 01/10/2020 Orders Only [facility] ([facility]) - [facility] ENT [address] [facility] 11th [place] [address] [place] [address] Saqib Henry MD [address] [place], [place] [id number] Stephen (Primary Dx) Social History Tobacco Use Types Packs/Day Years Used Date Smoking Tobacco: Former Cigarettes 1 966 - 2639 Smokeless Tobacco: Never Alcohol Use Standard Drinks/Week Comments Yes 1 (1 standard drink = 0.6 oz pur e alcohol) PHQ-2 Answer Date Recorded PHQ-2 Score 0 12/12/2018 Sex and Gender Information Value Date Recorded Sex Assigned at Not on file Legal Sex Male 3:25 PM CAPACITOR REPAIRER Gender Identity Not on file Sexual Orientation Not on file COVID-19 Exposure Response Date Recorded In the last month, have you been in contact with someone who was confirmed or suspected to have Coronavirus / COVID-19? No / Unsure 01/08/2020 10:15 AM CDT documented as of this encounter Progress Notes * Jacquie Hensley RN - 01/10/2020 5:29 PM CDT Spoke with patient and answered questions regarding his medication. Referral placed to Dr. Crawley, Endocrinology, for follow up. Patient voiced understanding . documented in this encounter Plan of Treatment Upcoming Encounters Date Type Department Care Team (Latest Contact Info) Description 10/23/2024 10:00 AM CAPACITOR REPAIRER Hospital Encounter [facility] [address] [place] [address] [place] [address] [address] 10/23/2024 10:00 AM CAPACITOR REPAIRER - 10/23/2024 1:00 PM CAPACITOR REPAIRER Surgery [facility] [address] [place] [address] [place] [address] [address] ARTHROPLASTY TOTAL KNEE LEFT Scheduled Procedures Name Priority Associated Diagnoses Date/Ti me ARTHROPLASTY TOTAL KNEE left knee osteoarthritis 10/23/2024 10:00 AM CAPACITOR REPAIRER ESOPHAGOGASTRODUODENOSCOPY Dysphagia, unspecified type documented as of this encounter Visit Diagnoses Diagnosis Goiter- Primary Goiter, unspecified documented in this encounter Care Teams Bobbin Disker Relationship Specialty [place] [address] [facility] [address] [place] [address] PCP - General 11/12/16 03/11/22 documented as of this encounter
--- OUTSIDE RECORDS SUMMARY | 2024-10-11 02:01 | XMS_ITS | Encounter Summary ---
Author Organization [facility] Address [address] [address] Care Team Providers Care General Manager Land Department Name Role Phone Santino Funk MD Primary Care Provider + Reason for Referral * Orthopedic (Routine) - Closed Specialty Diagnoses / Procedures Referred By Contac t Referred To Contact Diagnoses Primary osteoarthritis of left knee Procedures Large Joint (Hip, Knee, Shoulder) Injection: L knee Sarah Thorpe PA Phone: tel: fax: [facility] Referral ID Status Reason Start Date Expiration Date Visits Re quested Visits Authorized [id number] Closed 02/02/2020 08/13/2021 1 1 * Orthopedic (Routine) - Closed Specialty Diagnoses / Procedures Referred By Contac t Referred To Contact Diagnoses Primary osteoarthritis of right knee Procedures Large Joint (Hip, Knee, Shoulder) Injection: R knee Sarah Thorpe PA Phone: tel: fax: [facility] Referral ID Status Reason Start Date Expiration Date Visits Re quested Visits Authorized [id number] Closed 02/02/2020 08/13/2021 1 1 Reason for Visit * Reason Comments Injections Injections Encounter Details Date Type Department Care Team (Latest Contact Info) Description 02/02/2020 8:15 AM CDT Office Visit [facility] [address] [facility] [address] [place] [address] Sarah Thorpe PA [address] [place] [address] Primary osteoarthritis of left knee (Primary Dx); Primary osteoarthritis of right knee Social History Tobacco Use Types Packs/Day Years Used Date Smoking Tobacco: Former Cigarettes 1 7130 Smokeless Tobacco: Never Alcohol Use Standard Drinks/Week Comments Yes 1 (1 standard drink = 0.6 oz pur e alcohol) PHQ-2 Answer Date Recorded PHQ-2 Score 0 12/12/2018 Sex and Gender Information Value Date Recorded Sex Assigned at Not on file Legal Sex Male 3:25 PM KENNEL ATTENDANT Gender Identity Not on file Sexual Orientation Not on file COVID-19 Exposure Response Date Recorded In the last month, have you been in contact with someone who was confirmed or suspected to have Coronavirus / COVID-19? No / Unsure 01/08/2020 10:15 AM CDT documented as of this encounter Last Filed Vital Signs Vital Sign Reading Time Taken Comments Blood Pressure - - Pulse - - Temperature - - Respiratory Rate - - Oxygen Saturation - - Inhaled Oxygen Concentration - - Weight 102.7 kg (226 lb 6.4 oz) 02/02/2020 8:12 AM CDT Height 182.9 cm (6' 0.01 ) 02/02/2020 8:12 AM CD T Body Mass Index 30.7 02/02/2020 8:12 AM CDT documented in this encounter Progress Notes * Sarah Thorpe PA - 02/02/2020 8:15 AM CDTAssociated Order(s): Large Joint (Hip, Knee, Shoulder) Injection: R knee; Large Joint (Hip, Knee, Shoulder) Injection: L knee Post-Procedure Diagnose(s): Primary osteoarthritis of right knee; Primary osteoarthritis of left knee Images from the original note were not included. FOLLOW UP VISIT Subjective CHIEF COMPLAINT He had concerns including Injections of the Left Knee and Injections of the Right Knee. HISTORY OF PRESENT ILLNESS Pt reports return of bilateral knee pain. States left used to be more painful but now knees are equal. Pain is worse with prolonged standing, ambulation, stairs. He's had cortisone injections in the past and would like to know if he can have repeats. Pain Assessment Pain Assessment: 0-10 Pain Location: Knee Pain Orientation: Right, Left Pain Onset: Ongoing Clinical Progression: Not changed Result of Injury: No Work-Related Injury: No MEDICATIONS He has a current medication list which includes the following prescription(s): acetaminophen, aspirin-sodium bicarbonate-citric acid, bismuth subsalicylate, calcium carbonate, cholecalciferol, docusate sodium, guaifenesin/pseudoephedrne hcl, levothyroxine, omeprazole, oxycodone, polyethylene glycol, sildenafil (pulm.hypertension), tamsulosin, temazepam, triamcinolone, UNABLE TO FIND, and ventolinhfa. REVIEW OF SYSTEMS Review of Systems Constitutional: Negative for chills and fever. HENT: Negative for hearing loss and trouble swallowing. Eyes: Negative for discharge. Respiratory: Negative for shortness of breath. Cardiovascular: Negative for chest pain. Gastrointestinal: Negative for abdominal pain. Genitourinary: Negative for flank pain. Musculoskeletal: Positive for arthralgias and joint swelling. Skin: Negative for wound. Neurological: Negative for dizziness and seizures. Psychiatric/Behavioral: Negative for confusion. Objective PHYSICAL EXAM Ht 182.9 cm (6' 0.01 ) Wt 102.7 kg (226 lb 6.4 oz) BMI 30.70 kg/m?? Right knee Inspection Erythema: absent Cellulitis: absent Swelling: absent Surgical scar/wound: present. The surgical scar/wound is healed. Skin temperature: normal Alignment: neutral Gait: antalgic Palpation Tenderness: present. The tenderness is located in the medial joint line and patella. Patellar tracking: normal Crepitus: positive Patella grind: positive Subluxation: negative Range of motion The patient has pain with range of motion of the right knee. Active extension: 0 Active flexion: 121-125 Passive flexion: 0 Passive flexion: 126-130 Extensor lag: no. Stability AP stability: stable ML stability: stable Varus stress at 0 degrees: stable Valgus stress at 0 degrees: stable Varus stress at 30 degrees: stable Valgus stress at 30 degrees: stable Dial test at 30 degrees flexion: standard (<5 degrees) Dial test at 90 degrees flexion: standard (<5 degrees) Joanna: negative Anterior drawer: negative Posterior drawer: negative Strength The patient has 5/5 strength thoughout right knee. Neurovascular The patient has normal vascular on the right side of their body. The patient has normal sensation on the right side of their body. Special tests Zoila: medial negative lateral positive Patellar apprehension: negative Left knee Inspection Erythema: absent Cellutlis: absent Swelling: absent Effusion: 1+ Surgical scar/wound: present. The surgical scar/wound is healed. Skin temperature: normal Alignment: neutral Gait: antalgic Palpation Tenderness: present. The tenderness is located in the medial joint line and patella. Patellar tracking: normal Crepitus: positive Patella grind: positive Subluxation: negative Range of motion The patient has pain with range of motion of the left knee. Active extension: 0 Active flexion: 121-125 Passive extension: 0 Passive flexion: 126-130 Extensor lag: no. Stability AP stability: stable ML stability: stable Varus stress at 0 degrees: stable Valgus stress at 0 degrees: stable Varus stress at 30 degrees: stable Valgus stress at 30 degrees: stable Dial test at 30 degrees flexion: standard (<5 degrees) Dial test at 90 degrees flexion: standard (<5 degrees) Joanna: negative Anterior drawer: negative Posterior drawer: negative Strength The patient has 5/5 strength throughout. Neurovascular The patient has normal vascular on the left side of their body. The patient has normal sensation on the left side of their body. Special tests Zoila: medial negative lateral negative Patellar apprehension: negative REVIEW OF X-RAYS/STUDIES/LABS Assessment/Plan There are no diagnoses linked to this encounter. Large Joint (Hip, Knee, Shoulder) Injection: R knee Date/Time: 02/02/2020 8:59 AM Performed by: LORI Howard Authorized by: LORI Howard Large Joint Injection/Aspiration: Consent Given by: Patient [...] Joint (Hip, Knee, Shoulder) Injection: L knee Date/Time: 02/02/2020 8:59 AM Performed by: LORI Howard Authorized by: LORI Howard Large Joint Injection/Aspiration: Verbal consent obtained: Yes Supporting Documentation: Indications: Pain and joint swelling Procedure Details: Location: Knee Site: L knee Needle Size: 22 G Approach: Anterolateral Medications: 4 mL lidocaine 10 mg/mL (1 %); 80 mg methylPREDNISolone acetate 40 mg/mL PLAN Discussed treatment options. Recommend repeat bilat knee cortisone injection. Pt accepted. Injections given through a sterile field, pt tolerated the procedure well. Activity as tolerated. RTC prn. LORI Kitchen documented in this encounter Plan of Treatment Upcoming Encounters Date Type Department Care Team (Latest Contact Info) Description 10/23/2024 10:00 AM KENNEL ATTENDANT Hospital Encounter [facility] Room [address] [place] [address] [place] [address] [address] 10/23/2024 10:00 AM KENNEL ATTENDANT - 10/23/2024 1:00 PM KENNEL ATTENDANT Surgery [facility] [address] [place] [id number] [place] [address] [address] ARTHROPLASTY TOTAL KNEE LEFT Scheduled Procedures Name Priority Associated Diagnoses Date/Ti me ARTHROPLASTY TOTAL KNEE left knee osteoarthritis 10/23/2024 10:00 AM KENNEL ATTENDANT ESOPHAGOGASTRODUODENOSCOPY Dysphagia, unspecified type documented as of this encounter Procedures Procedure Name Priority Date/Time Associated Diagnosis Comments MI ARTHROCENTESIS ASPIR&/INJ MAJOR JT/BURSA W/O US Routine 02/02/2020 8:15 AM CDT Primary osteoarthritis of left knee MI ARTHROCENTESIS ASPIR&/INJ MAJOR JT/BURSA W/O US Routine 02/02/2020 8:15 AM CDT Primary osteoarthritis of right knee documented in this encounter Results * MI ARTHROCENTESIS ASPIR&/INJ MAJOR JT/BURSA W/O US (02/02/2020 8:15 AM CDT) Narrative Sarah Thorpe PA - 02/02/2020 8:15 AM CDT LORI Howard ? 02/02/2020 ??9:00 AM Large Joint (Hip, Knee, Shoulder) Injection: L knee Date/Time: 02/02/2020 8:59 AM Performed by: LORI Howard Authorized by: LORI Howard Large Joint Injection/Aspiration: ??Verbal consent obtained: Yes ?? Supporting Documentation: ??Indications: ??Pain and joint swelling Procedure Details: ??Location: ??Knee ??Site: ??L knee ??Needle Size: ??22 G ??Approach: ??Anterolateral ??Medications: ??4 mL lidocaine 10 mg/mL (1 %); 80 mg methylPREDNISolone acetate 40 mg/mL us Sarah SANDOVAL IN CLINIC/BEDSIDE VARINDER DEVRIES Final Result * MI ARTHROCENTESIS ASPIR&/INJ MAJOR JT/BURSA W/O US (02/02/2020 8:15 AM CDT) Narrative Sarah Thorpe PA - 02/02/2020 8:15 AM CDT LORI Howard ? 02/02/2020 ??9:00 AM Large Joint (Hip, Knee, Shoulder) Injection: R knee Date/Time: 02/02/2020 8:59 AM Performed by: LORI Howard Authorized by: LORI Howard Large Joint Injection/Aspiration: ??Consent Given by: ??Patient [...] procedure well with no immediate complications us Sarah SANDOVAL IN CLINIC/BEDSIDE VARINDER DERVIES Final Result documented in this encounter Visit Diagnoses Diagnosis Primary osteoarthritis of left knee- Primary Primary osteoarthritis of right knee documented in this encounter Administered Medications Inactive Administered Medications - up to 3 most recent administrations Medication Order MAR Action Action Date Dose Rate Site lidocaine (XYLOCAINE) 10 mg/mL (1 %) injection 4 mL 4 mL, One-Time Injection, Starting on Wed02/02/20 at 0859, For 1 dose, Indications: Administration of Local AnesthesiaIndications:Administratio n of Local Anesthesia Given 02/02/2020 8:59 AM CDT 4 mL lidocaine (XYLOCAINE) 10 mg/mL (1 %) injection 4 mL 4 mL, One-Time Injection, Starting on Wed02/02/20 at 0859, For 1 dose, Indications: Administration of Local AnesthesiaIndications:Administratio n of Local Anesthesia Given 02/02/2020 8:59 AM CDT 4 mL methylPREDNISolone acetate (DEPO-medrol) injection 80 mg 80 mg, intra-articular, One-Time Injection, Starting on Wed02/02/20 at 0859, For 1 doseIndications:Primary osteoarthritis of right knee Given 02/02/2020 8:59 AM CDT 80 mg methylPREDNISolone acetate (DEPO-medrol) injection 80 mg 80 mg, intra-articular, One-Time Injection, Starting on Wed02/02/20 at 0859, For 1 doseIndications:Primary osteoarthritis of left knee Given 02/02/2020 8:59 AM CDT 80 mg documented in this encounter Historical Medications * This list may reflect changes made after this encounter. tamsulosin (FLOMAX) 0.4 mg extended release capsule Take 1 capsule (0.4 mg total) by mouth nightly 01/29/2020 triamcinolone (KENALOG) 0.1 % cream APPLY TID ON THE SKIN PRN 01/29/2020 09/11/2021 added in this encounter Care Teams General Manager Land Department Relationship Specialty [place] [address] [id number] [place] [address] PCP - General 11/12/16 03/11/22 documented as of this encounter
--- OUTSIDE RECORDS SUMMARY | 2024-10-11 02:01 | XMS_ITS | Encounter Summary ---
Author Organization [facility] Healthcare Address [address] [place] [address] Care Team Providers Care Electronic Warfare Linguist Name Role Phone Santino Funk MD Primary Care Provider + Reason for Referral * (Routine) - Closed Specialty Diagnoses / Procedures Referred By Contac t Referred To Contact Diagnoses Transient ischemic attack (TIA) Left sided numbness Procedures Transthoracic Echo Complete W Doppler/[place] [address] [place] [address] Phone: tel: fax: [address] [phone] Referral ID Status Reason Start Date Expiration Date Visits Re quested Visits Authorized [id number] Closed 02/07/2020 08/18/2021 1 1 Reason for Visit * (Routine) - Closed Specialty Diagnoses / Procedures Referred By Contboone t Referred To Contact Diagnoses Transient ischemic attack (TIA) Left sided numbness Procedures Transthoracic Echo Complete W Doppler/[place] [address] [place] [id number] Phone: tel: fax: [address] [phone] Referral ID Status Reason Start Date Expiration Date Visits Re quested Visits Authorized [id number] Closed 02/07/2020 08/18/2021 1 1 Encounter Details Date Type Department Care Team (Latest Contact Info) Description 02/14/2020 7:55 AM CDT - 02/14/2020 9:49 AM CDT Hospital Encounter [facility] Non-invasive Cardiac Diagnostic Testing [id number] [place] [address] [place] [address] 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 Gender Identity Not on file Sexual Orientation [...] 1 tablet (150 mcg total) by mouth cell maker before breakfast 60 tablet 1 12/31/2019 0 [...] Contact Info) Description 10/23/2024 10:00 AM CLIENT SERVICE CONSULTANT Hospital Encounter [facility] Operating Room [id number] [place] [address] [place] [address] [id number] 10/23/2024 10:00 AM CLIENT SERVICE CONSULTANT - 10/23/2024 1:00 PM CLIENT SERVICE CONSULTANT Surgery [facility] Operating Room [address] [place] [id number] [place] [address] [id number] ARTHROPLASTY TOTAL KNEE LEFT Scheduled Procedures Name Priority Associated Diagnoses Date/Ti me ARTHROPLASTY TOTAL KNEE left knee osteoarthritis 10/23/2024 10:00 AM CLIENT SERVICE CONSULTANT ESOPHAGOGASTRODUODENOSCOPY Dysphagia, unspecified type documented as of this encounter Procedures Procedure Name Priority Date/Time Associated Diagnosis Comments TRANSTHORACIC ECHO (TTE) COMPLETE W DOPPLER/CF WO CONTRAST Routine 02/14/2020 11:20 AM CDT Transient ischemic attack (TIA) Left sided numbness documented in this encounter Results * TRANSTHORACIC ECHO (TTE) COMPLETE W DOPPLER/CF WO CONTRAST (02/14/2020 11:20 AM CDT) Anatomical Region Laterality Modality Ultrasound 02/14/2020 10:5 2 AM CDT Narrative 02/14/2020 2:33 PM CDT [address] [address] Echocardiogram Report Patient Name: GUNJAN GTZ : 1944 Study Date: 02/14/2020 10:52:28 AM Gender: M Tech: SM Location: [facility] Ref.Provider: NAYAN MAHAJAN Height(Cm): 182 BSA: 2.24 Weight(Kg): 99 Heart Rate: 58 Quality: Good Order Provider: NAYAN MAHAJAN Procedures: Echocardiographic Report: Transthoracic echocardiogram with 2D, M-Mode, and color Doppler examination with saline contrast study. Indications: Transient Ischemic Attack. Measurements: 2D/M Mode Doppler Measurement Value Normal Range Measurement Value Normal Range EF Teich 2D 70.4 [ 55.0 - 70.0 ] percent OH Vmax 2.63 [ 2.00 - 4.00 ] cm2 EF Mod 4C 64.8 [ 55.0 - 70.0 ] percent AV Mean PG 4 [ 2 - 4 ] mmHg LVIDd 2D 4.45 [ 4.20 - 5.90 ] cm AV Peak Anselmo 1.28 [ 1.00 - 1.70 ] m/s LVIDs 2D 2.69 [ 2.30 - 3.90 ] cm AV VTI 28.31 cm LVPWd 2D 1.10 [ 0.60 - 1.00 ] cm LVOT Diam 2.25 [ 1.70 - 2.10 ] cm IVSd 2D 1.05 [ 0.60 - 0.90 ] cm LVOT Peak Anselmo 0.85 [ 0.70 - 1.10 ] m/s AoR Diam MM 1.95 [ 2.60 - 3.70 ] cm LVOT VTI 21.74 [ 20.00 - 30.00 ] cm MV E Peak Anselmo 0.76 [ 0.60 - 1.30 ] m/s MV A Peak Anselmo 0.74 [ 1.00 - 1.20 ] m/s MV PHT 97 [ 20 - 100 ] msec MVA 2.30 MV Decel Time 328 [ 104 - 258 ] msec TR Peak Anselmo 2.69 [ 1.00 - 2.80 ] m/s TR Peak PG 29 mmHg RVSP 34.00 [ 10.00 - 36.00 ] mmHg E' 0.10 E/E' 7.00 Findings: Atrial Septum: Normal atrial septum. Saline contrast study performed without evidence of right to left shunt. Left Ventricle: Normal left ventricular size. Mild concentric left ventricular hypertrophy. Diastolic dysfunction is present. Ejection fraction is measured at 64 %. Left Atrium: The left atrium is normal in size. Right Ventricle: Normal right ventricular size. Normal right ventricular systolic function. Right Atrium: The right atrium is normal in size. Aortic Valve: Aortic cusps appear mildly sclerotic. No evidence of hemodynamically significant aortic stenosis by Doppler. No aortic regurgitation. Mitral Valve: Normal structure of the mitral valve. Trivial regurgitation of the mitral valve. Pulmonic Valve: Pulmonic valve not well visualized. Trivial regurgitation in the pulmonic valve. Tricuspid Valve: Normal structure of the tricuspid valve. Estimated peak RVSP is 32 mmHg. Mild tricuspid regurgitation. Pericardium: Normal pericardium with no significant pericardial effusion. Aorta: Normal aortic root. IVC: Normal size and normal respiratory collapse consistent with normal right atrial pressure (<5 mmHg). Pulmonary Artery: Normal pulmonary artery size. Conclusions: Normal left ventricular size. Mild concentric left ventricular hypertrophy. Diastolic dysfunction is present. Ejection fraction is measured at 64 %. Normal atrial septum. Saline contrast study performed without evidence of right to left shunt. Normal structure of the mitral valve. Trivial regurgitation of the mitral valve. Normal structure of the tricuspid valve. Estimated peak RVSP is 32 mmHg. Mild tricuspid regurgitation. Electronically Signed By: Carolyne Mendiola DO, FACC, FASE, FASNC 2020-02-14 14:33:55 CDT CC: CC: Procedure Note Carolyne eMndiola DO - 02/14/2020 [place] [address] Echocardiogram Report Patient Name: GUNJAN GTZ : 1944 Study Date: 02/14/2020 10:52:28 AM Gender: M Tech: Location: [facility] Ref.Provider: NAYAN MAHAJAN Height(Cm): 182 BSA: 2.24 Weight(Kg): 99 Heart Rate: 58 Quality: Good Order Provider: NAYAN MAHAJAN Procedures: Echocardiographic Report: Transthoracic echocardiogram with 2D, M-Mode, and color Dopplerexamination with saline contrast study. Indications: Transient Ischemic Attack. Measurements: 2D/M Mode Doppler Measurement Value Normal Range Measurement Value Normal Range EF Teich 2D 70.4 [ 55.0 - 70.0 ] percent OH Vmax 2.63 [ 2.00 - 4.00 ]cm2 EF Mod 4C 64.8 [ 55.0 - 70.0 ] percent AV Mean PG 4 [ 2 - 4 ] mmHg LVIDd 2D 4.45 [ 4.20 - 5.90 ] cm AV Peak Anselmo 1.28 [ 1.00 - 1.70 ] m/s LVIDs 2D 2.69 [ 2.30 - 3.90 ] cm AV VTI 28.31 cm LVPWd 2D 1.10 [ 0.60 - 1.00 ] cm LVOT Diam 2.25 [ 1.70 - 2.10 ] cm IVSd 2D 1.05 [ 0.60 - 0.90 ] cm LVOT Peak Anselmo 0.85 [ 0.70 - 1.10 ] m/s AoR Diam MM 1.95 [ 2.60 - 3.70 ] cm LVOT VTI 21.74 [ 20.00 - 30.00 ] cm MV E Peak Anselmo 0.76 [ 0.60 - 1.30 ] m/s MV A Peak Anselmo 0.74 [ 1.00 - 1.20 ] m/s MV PHT 97 [ 20 - 100 ] msec MVA 2.30 MV Decel Time 328 [ 104 - 258 ] msec TR Peak Anselmo 2.69 [ 1.00 - 2.80 ] m/s TR Peak PG 29 mmHg RVSP 34.00 [ 10.00 - 36.00 ] mmHg E' 0.10 E/E' 7.00 Findings: Atrial Septum: Normal atrial septum. Saline contrast study performed without evidence ofright to left shunt. Left Ventricle: Normal left ventricular size. Mild concentric left ventricularhypertrophy. Diastolic dysfunction is present. Ejection fraction is measured at 64 %. Left Atrium: The left atrium is normal in size. Right Ventricle: Normal right ventricular size. Normal right ventricular systolicfunction. Right Atrium: The right atrium is normal in size. Aortic Valve: Aortic cusps appear mildly sclerotic. No evidence of hemodynamicallysignificant aortic stenosis by Doppler. No aortic regurgitation. Mitral Valve: Normal structure of the mitral valve. Trivial regurgitation of the mitralvalve. Pulmonic Valve: Pulmonic valve not well visualized. Trivial regurgitation in the pulmonicvalve. Tricuspid Valve: Normal structure of the tricuspid valve. Estimated peak RVSP is 32 mmHg.Mild tricuspid regurgitation. Pericardium: Normal pericardium with no significant pericardial effusion. Aorta: Normal aortic root. IVC: Normal size and normal respiratory collapse consistent with normal rightatrial pressure (<5 mmHg). Pulmonary Artery: Normal pulmonary artery size. Conclusions: Normal left ventricular size. Mild concentric left ventricularhypertrophy. Diastolic dysfunction is present. Ejection fraction is measured at 64 %. Normal atrial septum. Saline contrast study performed without evidence ofright to left shunt. Normal structure of the mitral valve. Trivial regurgitation of the mitralvalve. Normal structure of the tricuspid valve. Estimated peak RVSP is 32 mmHg.Mild tricuspid regurgitation. Electronically Signed By: Carolyne Mendiola DO, BO, ALEXANDRA, SONIDO 2020-02-14 14:33:55 CDT CC: CC: Nayan Mahajan II, MD CV ECHO PROCEDURES Final Res ult documented in this encounter Visit Diagnoses Diagnosis Transient ischemic attack (TIA) Unspecified transient cerebral ischemia Left sided numbness documented in this encounter Care Teams Electronic Warfare Linguist Relationship Specialty [place] [address] [address] PCP - General 11/12/16 03/11/22 documented as of this encounter
--- OUTSIDE RECORDS SUMMARY | 2024-10-11 02:01 | XMS_ITS | Encounter Summary ---
Author Organization [facility] Address [address] [place] [address] Care Team Providers Care Fast Food Fry Cook Name Role Phone Santino Funk MD Primary Care Provider + Reason for Referral * (Routine) - Closed Specialty Diagnoses / Procedures Referred By Contac t Referred To Contact Diagnoses Transient ischemic attack (TIA) Left sided numbness Procedures Transthoracic Echo Complete W Doppler/[place] [address] [place] [address] Phone: tel: fax: [address] [phone] Referral ID Status Reason Start Date Expiration Date Visits Re quested Visits Authorized [id number] Closed 02/07/2020 08/18/2021 1 1 * Diagnostic Imaging (Routine) - Closed Specialty Diagnoses / Procedures Referred By Dillan t Referred To Contact Diagnoses Transient ischemic attack (TIA) Left sided numbness Procedures [place] [address] [place] [address] Phone: tel: fax: Referral ID Status Reason Start Date Expiration Date Visits Re quested Visits Authorized [id number] Closed 02/07/2020 08/18/2021 1 1 * Diagnostic Imaging (Routine) - Closed Specialty Diagnoses / Procedures Referred By Dillan t Referred To Contact Radiology Diagnoses 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) Transient ischemic attack (TIA) Left sided numbness Procedures MRI Brain [place] [address] [address] Phone: tel: fax: [facility] [address] [place] [phone] Referral ID Status Reason Start Date Expiration Date Visits Re quested Visits Authorized [id number] Closed 02/07/2020 08/18/2021 1 1 Reason for Visit * Reason Comments Memory Loss Encounter Details Date Type Department Care Team (Late Contact Info) Description 02/07/2020 10:30 AM CDT Office Visit [facility] [address] [address] [place] [address] [address] Late onset Alzheimer's disease without behavioral disturbance (CMS/HCC) (Primary Dx); Transient ischemic attack (TIA); Left sided numbness; Abnormality of gait and mobility; Vertigo Social History Tobacco Use Types Packs/Day Years Used Date Smoking Tobacco: Former Cigarettes 1 966 - 1967 Smokeless Tobacco: Never Alcohol Use Standard Drinks/Week Comments Yes 1 (1 standard drink = 0.6 oz pur e alcohol) PHQ-2 Answer Date Recorded PHQ-2 Score 0 12/12/2018 Sex and Gender Information Value Date Recorded Sex Assigned at Not on file 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 No / Unsure 01/08/2020 10:15 AM CDT documented as of this encounter Last Filed Vital Signs Vital Sign Reading Time Taken Comments Blood Pressure 118/78 02/07/2020 10:33 AM CDT Pulse 68 02/07/2020 10:33 AM CDT Temperature - - Respiratory Rate 16 02/07/2020 10:33 AM CDT Oxygen Saturation - - Inhaled Oxygen Concentration - - Weight 99 kg (218 lb 4.4 oz) 02/07/2020 10:33 AM CDT Height 182.9 cm (6' 0.01 ) 02/07/2020 10:33 AM C DT Body Mass Index 29.6 02/07/2020 10:33 AM CDT documented in this encounter Ordered Prescriptions Prescription Sig Dispense Quantity Refills Last Filled Start Date End Date gabapentin (NEURONTIN) 300 mg capsuleIndications :Numbness and tingling Take 1 to 2 capsules at bedtime 90 capsule 2 02/07/2020 0 donepeziL (ARICEPT) 5 mg tablet Take 1 tablet (5 mg total) by mouth nightly 30 tablet 5 02/07/2020 0 documented in this encounter Progress Notes * Nayan Mahajan II, MD - 02/07/2020 10:30 AM CDT Subjective: Patient ID: Gunjan Gtz Jr. is a 75 y.o. male with a chief complaint of memory loss and additionalcomplaints of vertigo and numbness and tingling.. HPI This is a patient who I evaluated in 2018 for complaints of memory loss and during that period of time he was diagnosed with mild cognitive impairment with a [facility] Mental status score of 22. He was not started on any medication at that time and encouraged to remain physically and socially active. However since I last saw him in 2018 he reports that his cognitive function has declined. He has more problems with remembering names. This is most noticeable almost on a daily basis. For today's appointment he was to have brought down his cell phone and his medications but when he left his car he then realized that he forgot to bring those in with him. He does feels that things are getting progressively worse in terms of cognitive function. He still independent in his self-care and gait is still takes care of his finances. He has not gotten lost driving but on occasion he has made the wrong term. In addition he other complaints include symptoms of numbness and tingling of the left side of the body for the past 2-3 years this occurs especially at night. He will have a tingling of the left perioral region as well as the left upper extremity in the left lower extremity. This usually brought on by laying on his left side and relieved by getting up. The symptoms of numbnessand tingling will wake him up from sleep. He was given time a so Concepcion in the past but this is no longer effective. Other symptoms include a sensation that he might fall when he gets up suddenly heat he will tend to veer to the right or to the left. These symptoms of numbness and tingling the left side of the body and veering towards the left side to the right has been ongoing for several years. His B12 folate methylmalonic acid in 2018 were within normal limits his last MRI was in 2016 which showed mild atrophy microvascular disease. Review of Systems Constitutional: Negative for activity change, appetite change and fever. HENT: Negative for hearing loss, sore throat and tinnitus. Eyes: Negative for visual disturbance. Respiratory: Negative for cough and shortness of breath. Cardiovascular: Negative for chest pain and palpitations. Gastrointestinal: Negative for abdominal pain, constipation, diarrhea and nausea. Endocrine: Negative for cold intolerance and heat intolerance. Musculoskeletal: Positive for gait problem. Negative for [...] normal. Language is fluent with no aphasia. SLUMS 20, missed 4 for recall, 5 animals named. Missed three questions for the story of Giulia remembering only that she was in the [facility].. Physical Exam Constitutional: General: He is awake. Neurological: Mental Status: He is alert. Psychiatric: Speech: Speech normal. Assessment/Plan: 1. The patient's symptoms have progressed he has a dementia of the Alzheimer's type his [facility] Mental status score is 20 indicative of a dementia. He will be scheduled for an MRI of the brain without contrast and will be started on donepezil 5 mg at bedtime the side effects of loss of appetite stomach upset diarrhea and syncope were discussed if tolerated she will be increased to 10 mg at bedtime. 2. Vertigo and impairment of gait and balance he will have an MRI of the brain done to make sure that there is no posterior fossa abnormality causing his complaints. 3. Numbness and tingling of the left side of the body 4. TIA while this might be just related to position his symptoms involve the face arm and leg he will be scheduled for the MRI of the brain as well as a transthoracic echocardiogram and carotid Doppler study and was instructed to take 2 baby aspirins per day. He will be seen on a follow-up in 1 month after completing these tests. Medications Current Outpatient Medications: ??? acetaminophen 500 [...] ), Disp: 30 capsule, Rfl: 0 ??? guaifenesin/pseudoephedrne HCl (MUCINEX D MAXIMUM STRENGTH ORAL), Take 15 mL by mouth daily as needed, Disp: , Rfl: ??? levothyroxine (SYNTHROID) 150 mcg tablet, Take 1 tablet (150 mcg total) by mouth judicial clerk before breakfast, Disp: 60 tablet, Rfl: 1 [...] Last attempt to quit: 1967 Years since quittin.3 ??? 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 SHELLER OPERATOR Hospital Encounter [facility] Operating Room [address] [place], [place] [id number] [place] [id number] [place] [address] 10/23/2024 10:00 AM CORN SHELLER OPERATOR - 10/23/2024 1:00 PM CORN SHELLER OPERATOR Surgery [facility] Operating Room [address] [place] [address] [place] [id number] [place] [address] [id number] ARTHROPLASTY TOTAL KNEE LEFT Scheduled Procedures Name Priority Associated Diagnoses Date/Ti me ARTHROPLASTY TOTAL KNEE left knee osteoarthritis 10/23/2024 10:00 AM CORN SHELLER OPERATOR ESOPHAGOGASTRODUODENOSCOPY Dysphagia, unspecified type documented as of this encounter Results * TRANSTHORACIC ECHO (TTE) COMPLETE W DOPPLER/CF WO CONTRAST (02/14/2020 11:20 AM CDT) Anatomical Region Laterality Modality Ultrasound 02/14/2020 10:5 2 AM CDT Narrative 02/14/2020 2:33 PM CDT [place] [id number] Echocardiogram Report Patient Name: GUNJAN GTZ : 1944 Study Date: 02/14/2020 10:52:28 AM Gender: M Tech: Location: [facility] Ref.Provider: NAYAN MAHAJAN Height(Cm): 182 BSA: 2.24 [...] 14:33:55 CDT CC: CC: Procedure Note Carolyne Mendiola DO - 02/14/2020 [place] [address] Echocardiogram Report Patient Name: GUNJAN GTZ : 1944 Study Date: 02/14/2020 10:52:28 AM Gender: M Tech: Location: [facility] Ref.Provider: NAYAN MAHAJAN Height(Cm): 182 BSA: 2.24 [...] regurgitation. Electronically Signed By: Carolyne Mendiola DO, [facility], [place], [facility] 2020-02-14 14:33:55 CDT CC: CC: us Nayan Mahajan II, MD CV ECHO PROCEDURES Final Res ult * MRI Brain WO Contrast (02/14/2020 10:29 AM CDT) Anatomical Region Laterality Modality Head and Neck N/A Magnetic Resonan ce 02/14/2020 10:4 7 AM CDT Impressions 02/14/2020 10:50 AM CDT STABLE APPEARANCE WITH ATROPHY AND SMALL VESSEL DISEASE WITHOUT ACUTE FINDINGS. Electronically signed by: Beka Draper M.D. Narrative 02/14/2020 10:50 AM CDT EXAMINATION: MRI BRAIN WO CONTRAST dated 02/14/2020 10:00 AM HISTORY: 75-year-old man leg onset Alzheimer's disease with memory loss. Vertigo. ??Hearing loss. ??Left-sided numbness for one year. Thyroidectomy one month ago TECHNIQUE: Multiplanar multisequence spin-echo images obtained. FINDINGS: Comparison is made with the study of 09/23/2016. ??Stable mild involutional changes are seen with prominent ventricles and sulci unchanged since the previous examination. ??There is no midline shift mass effect or hemorrhage. ??On the FLAIR images, note is again made of areas of T2 hyperintensity in the subcortical and periventricular deep white matter bilaterally similar to previous. ??Normal flow-voids are seen within the [place] of [place]. ??Posterior fossa the brain appears to be normal. ??Cerebellopontine angles are normal. ??Mild mucosal thickening in the frontal and ethmoidal air cells. ??Mastoids normally aerated. ??Brainstem and cerebellar hemispheres are normal. Normal pituitary fossa. ??Craniovertebral junction normal. ??Diffusion images normal, without abnormal restricted diffusion to suggest an acute infarct. ??No hemorrhagic changes are identified. Procedure Note Beka Draper MD - 02/14/2020 EXAMINATION: MRI BRAIN WO CONTRAST dated 02/14/2020 10:00 AM HISTORY: 75-year-old man leg onset Alzheimer's disease with memory loss. Vertigo. Hearing loss. Left-sided numbness for one year. Thyroidectomy one month ago TECHNIQUE: Multiplanar multisequence spin-echo images obtained. FINDINGS: Comparison is made with the study of 09/23/2016. Stable mild involutional changes are seen with prominent ventricles and sulci unchanged since the previous examination. There is no midline shift mass effect or hemorrhage. On the FLAIR images, note is again made of areas of T2 hyperintensity in the subcortical and periventricular deep white matter bilaterally similar to previous. Normal flow-voids are seen within the [place]. Posterior fossa the brain appears to be normal. Cerebellopontine angles are normal. Mild mucosal thickening in the frontal and ethmoidal air cells. Mastoids normally aerated. Brainstem and cerebellar hemispheres are normal. Normal pituitary fossa. Craniovertebral junction normal. Diffusion images normal, without abnormal restricted diffusion to suggest an acute infarct. No hemorrhagic changes are identified. IMPRESSION: STABLE APPEARANCE WITH ATROPHY AND SMALL VESSEL DISEASE WITHOUT ACUTE FINDINGS. Electronically signed by: Beka Draper M.D. Nayan Mahajan II, MD IM MRI PROCEDURES Final Res ult * US Carotids Bilateral (02/14/2020 9:26 AM CDT) Anatomical Region Laterality Modality Vascular Bilateral Ultrasound 02/14/2020 9:27 AM CDT Impressions 02/14/2020 9:33 AM CDT There is less than 50% stenosis noted in the right and the left internal carotid arteries. Electronically signed by: Cat Sandoval M.D. Narrative 02/14/2020 9:33 AM CDT EXAMINATION: US CAROTIDS DUPLEX BILATERAL HISTORY: The patient is a 75-year-old male who presents with transient ischemic attacks with dizziness, headaches, and left-sided numbness. There is a history of hypertension. TECHNIQUE: Bilateral carotid artery duplex ultrasound exam was performed with grayscale imaging, color Doppler imaging and spectral waveform analysis. NASCET Criteria utilized. FINDINGS: Right side: Plaque morphology: There is smooth, homogenous plaque noted in the carotid bulb and proximal ICA. Peak systolic velocity in the right CCA is 83 cm/s, in the proximal ICA is 56/18 cm/s and the ECA is 66 cm/s with an ICA/CCA ratio of 0.7. Normal antegrade flow noted in the right vertebral artery. Left side: Plaque morphology: There is smooth, homogenous plaque noted in the carotid bulb and proximal ICA. Peak systolic velocity in the left CCA is 95 cm/s, in the proximal ICA is 50/22 cm/s and the ECA is 82 cm/s with an ICA/CCA ratio of 0.7. Normal antegrade flow noted in the left vertebral artery. Procedure Note Cat Sandoval MD - 02/14/2020 EXAMINATION: US CAROTIDS DUPLEX BILATERAL HISTORY: The patient is a 75-year-old male who presents with transient ischemic attacks with dizziness, headaches, and left-sided numbness. There is a history of hypertension. TECHNIQUE: Bilateral carotid artery duplex ultrasound exam was performed with grayscale imaging, color Doppler imaging and spectral waveform analysis. NASCET Criteria utilized. FINDINGS: Right side: Plaque morphology: There is smooth, homogenous plaque noted in the carotid bulb and proximal ICA. Peak systolic velocity in the right CCA is 83 cm/s, in the proximal ICA is 56/18 cm/s and the ECA is 66 cm/s with an ICA/CCA ratio of 0.7. Normal antegrade flow noted in the right vertebral artery. Left side: Plaque morphology: There is smooth, homogenous plaque noted in the carotid bulb and proximal ICA. Peak systolic velocity in the left CCA is 95 cm/s, in the proximal ICA is 50/22 cm/s and the ECA is 82 cm/s with an ICA/CCA ratio of 0.7. Normal antegrade flow noted in the left vertebral artery. IMPRESSION: There is less than 50% stenosis noted in the right and the left internal carotid arteries. Electronically signed by: Cat Sandoval M.D. 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)- Primary Transient ischemic attack (TIA) Unspecified transient cerebral ischemia Left sided numbness Abnormality of gait and mobility Vertigo Dizziness and giddiness Transient ischemic attack (TIA) Unspecified transient cerebral ischemia Left sided numbness Transient ischemic attack (TIA) Unspecified transient cerebral ischemia Left sided numbness 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) Transient ischemic attack (TIA) Unspecified transient cerebral ischemia Left sided numbness documented in this encounter Care Teams Fast Food Fry Cook Relationship Specialty [place] [id number] [address] PCP - General 11/12/16 03/11/22 documented as of this encounter
--- OUTSIDE RECORDS SUMMARY | 2024-10-11 02:01 | XMS_ITS | Encounter Summary ---
Author Organization [facility] Healthcare Address [address] [place] [address] Care Team Providers Care Early Childhood Aide Classroom Name Role Phone Santino Funk MD Primary Care Provider + Reason for Visit * Reason Comments Tingling Encounter Details Date Type Department Care Team (Late st Contact Info) Description 01/01/2020 12:25 AM CDT - 01/01/2020 3:35 AM CDT Emergency [facility] Emergency Department [address] [place] [address] Dioni Diaz MD [address] [place] [address] History of thyroidectomy (Primary Dx); Hypocalcemia; Essential hypertension Discharge Disposition: Discharge to home or self [...] on file Legal Sex Male 3:25 PM [employer] Gender Identity Not on file Sexual Orientation Not on file COVID-19 Exposure Response Date Recorded In the last month, have you been in contact with someone who was confirmed or suspected to have Coronavirus / COVID-19? No / Unsure 01/01/2020 2:13 AM CDT documented as of this encounter Last Filed Vital Signs Vital Sign Reading Time Taken Comments Blood Pressure 174/103 01/01/2020 3:00 AM CDT Pulse 78 01/01/2020 3:00 AM CDT Temperature 36.5 ??C (97.7 ??F) 01/01/2020 12:01 AM C DT Respiratory Rate 15 01/01/2020 3:00 AM CDT Oxygen Saturation 97% 01/01/2020 3:00 AM CDT Inhaled Oxygen Concentration - - Weight 97.5 kg (215 lb) 01/01/2020 12:01 AM CDT Height 182.9 cm (6') 01/01/2020 12:01 AM CDT Body Mass Index 29.16 01/01/2020 12:01 AM CDT documented in this encounter Discharge Diagnoses Diagnosis Hypocalcemia - HYPOCALCEMIA Essential (primary) hypertension - ESSENTIAL (PRIMARY) HYPERTENSION Unspecified essential hypertension 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 Gastro-esophageal reflux disease without esophagitis - GASTRO-ESOPHAGEAL REFLUX DISEASE WITHOUT ESOPHAGITIS Unspecified osteoarthritis, unspecified site - UNSPECIFIED OSTEOARTHRITIS, UNSPECIFIED SITE Major depressive disorder, single episode, unspecified - MAJOR DEPRESSIVE DISORDER, SINGLE EPISODE, UNSPECIFIED Personal history of peptic ulcer disease - PERSONAL HISTORY OF PEPTIC ULCER DISEASE Personal history of nicotine dependence - PERSONAL HISTORY OF NICOTINE DEPENDENCE documented in this encounter Discharge Instructions * Discharge Instructions* Sravani Davalos MD - 01/01/2020 2:47 AM CDT Return to the emergency department if you have shortness of breath, worsening or recurrent tingling, or for any other acute concerns. Follow up with your primary doctor tomorrow as scheduled. You hadhigh blood pressure in the emergency department and you may need to start a new blood pressure medication. Please continue taking all of your medications as prescribed. Please call your surgeon first thing tomorrow morning to check in and let them know about your symptoms. * Attachments The following attachments cannot be sent through Care Everywhere. * Hypertension, To Be Confirmed ([place] African) * Hypocalcemia (Adult) ([place] African) documented in this encounter Medications at Time of Discharge cholecalciferol (VITAMIN D-3) 2000 unit capsule Take 1 capsule (2,000 Units total) by mouth daily 30 capsule 3 12/31/2019 acetaminophen 500 mg capsuleIndications :Pain Take 2 [...] times a day. 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 Tingling Abrahan Gtz is a 75 y.o. male with a PMH of recent thyroidectomy presenting with perioral tingling. Patient was discharged on 12/29 after admission for thyroidectomy due to goiter. Was told to call his doctor or present to the ED if he had symptoms of perioral tingling. This evening, noticed some tingling around 2100. Also noticed some tingling in his left leg which he has had in the past. Took 4 Tums as well as his calcium supplement and symptoms improved. Also complaining of some shortness of breath which has now improved. He thought it might be due to anxiety. Has had cough productive of greenish sputum for a few days but no fever, chills, sore throat, rhinorrhea, congestion. He is hypertensive on arrival. States he had hypertension during his hospital stay. Has follow up appointment with PMD on 12/31. No history of hypertension but strong family history of cardiac disease. Mild headache but no CP, blurry vision. Family history of CAD Smoke: denies Alcohol: occasional Drug: denies Patient History Patient Active Problem List Diagnosis Date Noted ??? Goiter 12/05/2019 ??? Subchondral insufficiency fracture of condyle of [...] left knee as current injury 08/30/2018 ??? Primary osteoarthritis of left knee 08/08/2018 Past Medical History: Diagnosis Date ??? Acute [...] HERNIA REPAIR 1980 Hiatal Hernia repair ??? [place] ABDOMEN SURGERY PROC UNLISTED Hernia Repair - (Added by TW Conv) Family History Problem Relation Age of Onset ??? Heart failure Other Family history of Congestive heart failure; ??? Heart disease Other Family history of Heart disease; ??? Osteoarthritis Other Family history of Osteoarthritis; ??? Osteoporosis Other Family history of Osteoporosis; ??? Heart attack Mother ??? Heart attack Father ??? Heart attack Sister Social History Tobacco Use ??? Smoking status: Former Smoker Types: Cigarettes Start date: 1965 Last attempt to quit: 1967 Years since quittin.2 ??? Smokeless tobacco: Never Used Substance Use Topics ??? Alcohol use: Yes Alcohol/week: 1.0 standard drinks Types: 1 Standard drinks or equivalent per week ??? Drug use: No Social History Social History Narrative Caffeine use : (Added by TW Conv) Consumes alcohol : (Added by TW Conv) Review of Systems Review of Systems Constitutional: Negative for fever. All other systems reviewed and are negative. Physical Exam ED Triage Vitals Temp Pulse Resp BP SpO2 01/01/20 0001 01/01/20 0001 01/01/20 0001 01/01/20 0002 01/01/20 0001 36.5 ??C (97.7 ??F) 67 19 (!) 184/97 95 % Temp src Heart Rate Source Patient Position BP Location FiO2 (%) 01/01/20 0001 -- -- -- -- Oral Physical Exam Vitals signs reviewed. Constitutional: General: He is not in acute distress. Appearance: Normal appearance. HENT: Head: Normocephalic. Nose: Nose normal. No congestion. Mouth/Throat: Mouth: Mucous membranes are moist. Eyes: Conjunctiva/sclera: Conjunctivae normal. Pupils: Pupils are equal, round, and reactive to light. Neck: Musculoskeletal: Normal range of motion and neck supple. No neck rigidity. Comments: Thyroidectomy surgical site clean, dry, intact, no TTP. Drain with serosanguinous drainage. Cardiovascular: Rate and Rhythm: Normal rate and regular rhythm. Pulses: Normal pulses. Heart sounds: Normal heart sounds. No murmur. Pulmonary: Effort: Pulmonary effort is normal. No respiratory distress. Breath sounds: Normal breath sounds. Abdominal: General: Abdomen is flat. Bowel sounds are normal. There is no distension. Tenderness: There is no abdominal tenderness. Musculoskeletal: Normal range of motion. General: No swelling or tenderness. Skin: General: Skin is warm and dry. Capillary Refill: Capillary refill takes less than 2 seconds. Findings: No bruising or lesion. Neurological: General: No focal deficit present. Mental Status: He is alert and oriented to person, place, and time. Mental status is at baseline. Cranial Nerves: No cranial nerve deficit. Sensory: No sensory deficit. Motor: No weakness. Coordination: Coordination normal. Comments: Fine intention tremor Psychiatric: Mood and Affect: Mood normal. MDM MDM:75 yo M p/w perioral tingling. Ddx includes hypocalcemia, lower concern for hypoxemia, other electrolyte abnormality, no concern for CVA. Also with hypertension. Patient had episode of SOB but very low concern for viral illness, pneumonia, ACS. Plan to check CBC, CMP, EKG, troponin, TSH, Ca, Magnesium. Will treat with calcium if needed, get CXR. If workup negative, likely discharge with PMD follow up tomorrow and recommend patient call his surgeon in the AM. Attending Summary of Care ED Course as of Dec 31 332 Time: 12/31 53 Comment: 75 yo AAM thyroidectomy days ago goiter c/o perioral tingling/legs this evening, took 4 tums/pm calcium helped but dc instrcutions said come for eval. SOB/anxiety then better now, no cp except feels a little pull/pain at surgical site with dry cough, has had dry cough since surgery. Deniesf/c/s. Exam nad/not ill appearing, benignc ardiopulm/abd exams, surgical site mild errythema w/o dc and intact wound. IMP: suspect transient hypocalcemia and viral uri (present during last admit) to check labs/cxr and if unremarkable close outpt fu, had pt take picture of surgical site/wound to eval over time if more redness with surgeon (has appt 01/07 surgeon and PMD tomorrow). By: Dioni Diaz MD Time: 01/01 308 Comment: Patient well appearing, labs and VS wnl other than hypertension, which has improved. Plan for discharge with return precautions and PMD f/u tomorrow. Patient agrees with plan. By: Sravani Davalos MD History of thyroidectomy Hypocalcemia Essential hypertension Sravani Davalos MD Resident 01/01/20332 Cosigned by Dioni Diaz MD at 01/01/2020 4:11 AM CDT Associated attestation - Dioni Diaz MD - 01/01/2020 4:11 AM CDT I have seen and examined the patient on 01/01/2020. I reviewed the resident's note and agree with the findings and plan of care as documented in the resident's note with modifications as documented inmy note. * Aravind Kearney RN - 01/01/2020 12:25 AM CDT Bed: [facility] Expected date: Expected time: Means of arrival: Car Comments: Aravind Kearney RN 01/01/20 0025 * Sonam Pope RN - 01/01/2020 12:02 AM CDT Patient here with SOB and tingling in his lips and and left leg. Recently had his thyroid removed and was told he had HTN while he was in the hospital. SOB is worse while he lays down. Resp equal andunlabored. Patient has no previous history of HTN. Family history of ID's, denies CP documented in this encounter Miscellaneous Notes * ED Procedure Note - Liz Enriquez MD - 01/01/2020 12:13 AM CDT Associated Order(s): ECG 12 lead Procedure ECG 12 lead Date/Time: 01/01/2020 12:13 AM Performed by: Liz Enriquez MD Authorized by: Jong Ward MD Rate: ECG rate: 67 ECG rate assessment: normal Rhythm: Rhythm: sinus rhythm Ectopy: Ectopy: PVCs QRS: QRS axis: Normal Conduction: Conduction: abnormal ST segments: ST segments: Normal T waves: T waves: normal Previous ECG: Previous ECG: Unavailable Interpretation: Interpretation: non-specific Recommended Follow-up: Recommended follow up: further workup in the ED Liz Enriquez MD 01/01/20 0013 documented in this encounter Plan of Treatment Upcoming Encounters Date Type Department Care Team (Latest Contact Info) Description 10/23/2024 10:00 AM [employer] Hospital Encounter [facility] Operating Room [id number] [place] [address] [place] [address] [address] 10/23/2024 10:00 AM [employer] - 10/23/2024 1:00 PM [employer] Surgery [facility] Operating Room [address] [place] [address] [place] [address] [id number] ARTHROPLASTY TOTAL KNEE LEFT Scheduled Procedures Name Priority Associated Diagnoses Date/Ti me ARTHROPLASTY TOTAL KNEE left knee osteoarthritis 10/23/2024 10:00 AM [employer] ESOPHAGOGASTRODUODENOSCOPY Dysphagia, unspecified type documented as of this encounter Procedures Procedure Name Priority Date/Time Associated Diagnosis Comments XR CHEST PA LATERAL 2 VIEWS ED 01/01/2020 1:58 AM CDT DIFFERENTIAL AUTO STAT 01/01/2020 12: 36 AM CDT THYROID FUNCTION CASCADE STAT 01/01/2020 12:36 AM CDT CALCIUM, IONIZED STAT 01/01/2020 12:3 6 AM CDT CBC WITH AUTO DIFFERENTIAL STAT 01/01/2020 12:36 AM CDT TROPONIN I STAT 01/01/2020 12:36 AM CDT PHOSPHORUS STAT 01/01/2020 12:36 AM CDT PTH STAT 01/01/2020 12:36 AM CDT MAGNESIUM STAT 01/01/2020 12:36 AM CDT BASIC METABOLIC PANEL STAT 01/01/2020 12:36 AM CDT ECG 12-LEAD STAT 01/01/2020 12:13 AM CDT documented in this encounter Results * XR Chest Pa Lateral 2 Views (01/01/2020 1:58 AM CDT) Anatomical Region Laterality Modality Body, Chest N/A Computed Radiogr aphy 01/01/2020 2:21 AM CDT Impressions 01/01/2020 3:14 AM CDT Comparison 05/15/2007. ??Mild bibasilar atelectasis. ??Mild tenting right hemidiaphragm noted. ??No pulmonary edema or pleural effusion. ??No pneumothorax. ??Cardiomediastinal silhouette unchanged. Surgical clips project over the distal esophagus. ??Bilateral surgical clips in the neck noted from thyroidectomy. Dictated by: Jhonny Rothman M.D. The radiology attending physician has personally reviewed this study, and had reviewed and/or edited this written report and agrees with it. Electronically signed by: Rosalva Steiner M.D. Narrative 01/01/2020 3:14 AM CDT EXAMINATION: 2 view chest radiograph Procedure Note Rosalva Steiner MD - 01/01/2020 EXAMINATION: 2 view chest radiograph IMPRESSION: Comparison 05/15/2007. Mild bibasilar atelectasis. Mild tenting right hemidiaphragm noted. No pulmonary edema or pleural effusion. No pneumothorax. Cardiomediastinal silhouette unchanged. Surgical clips project over the distal esophagus. Bilateral surgical clips in the neck noted from thyroidectomy. Dictated by: Jhonny Rothman M.D. The radiology attending physician has personally reviewed this study, and had reviewed and/or edited this written report and agrees with it. Electronically signed by: Rosalva Steiner M.D. Sravani Davalos MD IMG XR PROCEDURES Final Result * Phosphorus (01/01/2020 12:36 AM CDT) Pathologist [facility] Phosphorus, pl 3.1 2.3 - 4.5 mg/dL [facility] Blood specimen (specimen) 01/01/2020 12:36 AM CDT 01/01/2020 12:43 AM CDT Notinfile Unknown LAB BLOOD ORDERABLES Final Res ult [facility] [place] [address] * (ABNORMAL) Differential, auto (01/01/2020 12:36 AM CDT) Pathologist [facility] Neutrophil abs 3.4 1.7 - 6.5 K/cumm [facility] Imm gran abs 0.0 0.0 - 0.1 K/cumm [facility] Lymphocyte abs 2.2 0.8 - 3.3 K/cumm [facility] Monocyte abs 0.9(H) 0.2 - 0.8 K/cumm [facility] Eosinophil abs 0.7(H) 0.0 - 0.5 K/cumm [facility] Basophil abs 0.0 0.0 - 0.1 K/cumm [facility] Neutrophil pct 46.4 % [facility] Comment: Interpretive Data Percent cell count reference ranges are not reported, since discordance with absolute values may lead to misinterpretation of CBC data. Current Interpretive Data was last revised on 2018. Imm gran pct 0.4 % [facility] Comment: Interpretive Data Percent cell count reference ranges are not reported, since discordance with absolute values may lead to misinterpretation of CBC data. Current Interpretive Data was last revised on 2018. Lymphocyte pct 30.9 % [facility] Comment: Interpretive Data Percent cell count reference ranges are not reported, since discordance with absolute values may lead to misinterpretation of CBC data. Current Interpretive Data was last revised on 2018. Monocyte pct 12.5 % [facility] Comment: Interpretive Data Percent cell count reference ranges are not reported, since discordance with absolute values may lead to misinterpretation of CBC data. Current Interpretive Data was last revised on 2018. Eosinophil pct 9.2 % [facility] Comment: Interpretive Data Percent cell count reference ranges are not reported, since discordance with absolute values may lead to misinterpretation of CBC data. Current Interpretive Data was last revised on 2018. Basophil pct 0.6 % [facility] Comment: Interpretive Data Percent cell count reference ranges are not reported, since discordance with absolute values may lead to misinterpretation of CBC data. Current Interpretive Data was last revised on 2018. Blood specimen (specimen) 01/01/2020 12:36 AM CDT 01/01/2020 12:53 AM CDT Dioni Diaz MD LAB BLOOD ORDERA BLES Final Result Performing Organization Address City/[facility]/ZIP Co de Phone Number [facility] [place] [address] * PTH (01/01/2020 12:36 AM CDT) PTH 49 15 - 65 pg/mL [facility] Blood specimen (specimen) 01/01/2020 12:36 AM CDT 01/01/2020 12:54 AM CDT Narrative [facility] - 01/01/2020 1:16 AM CDT THE COLLECTION LOCATION IS Dioni Diaz MD LAB BLOOD ORDERA BLES Final Result [facility] [place] [address] * Magnesium (01/01/2020 12:36 AM CDT) Magnesium 1.9 1.4 - 2.5 mg/dL [facility] Blood specimen (specimen) 01/01/2020 12:36 AM CDT 01/01/2020 12:43 AM CDT Narrative [facility] - 01/01/2020 1:51 AM CDT THE COLLECTION LOCATION IS Dioni Diaz MD LAB BLOOD ORDERA BLES Final Result Performing Organization Address [facility] Co de Phone Number [facility] [place] [address] * Calcium, ionized (01/01/2020 12:36 AM CDT) [facility] Calcium, Ionized 4.52 4.50 - 5.10 mg/dL [facility] Blood specimen (specimen) 01/01/2020 12:36 AM CDT 01/01/2020 12:43 AM CDT Narrative [facility] - 01/01/2020 12:58 AM CDT THE COLLECTION LOCATION IS Dioni Diaz MD LAB BLOOD ORDERA BLES Final Result Performing Organization Address [facility] Co de Phone Number [facility] [place] [address] * TSH reflex to free T4 (01/01/2020 12:36 AM CDT) [facility] TSH 1.38 0.30 - 4.20 mcIUnit/mL [facility] Blood specimen (specimen) 01/01/2020 12:36 AM CDT 01/01/2020 12:43 AM CDT Narrative [facility] - 01/01/2020 1:56 AM CDT THE COLLECTION LOCATION IS Dioni Diaz MD LAB BLOOD ORDERA BLES Final Result Performing Organization Address City/[facility]/[place] [address] * Troponin I (01/01/2020 12:36 AM CDT) [facility] Troponin I <0.03 0.00 - 0.03 ng/mL [facility] Comment: Interpretive Data: Normal plasma Troponin I concentrations can reach 1 ng/mL in the first two weeks of life and slowly decrease to adult levels (<0.03 ng/mL) by the age of 3 months. > 3 months ??<0.03 ng/mL > or = 18 years Serial determinations are recommended for the diagnosis of myocardial infarction. ??Temporal rise and fall are consistent with myocardial infarction when at least one value is above the 99th percentile upper reference limit for Troponin assay. References: 1. Clin Chem 2013;59:3433-3091 2. Journal of the [place] [employer] 2012;60:1581-98 Current Interpretive Data Last Revised Date: 2018. Blood specimen (specimen) 01/01/2020 12:36 AM CDT 01/01/2020 12:43 AM CDT Narrative [facility] - 01/01/2020 1:51 AM CDT THE COLLECTION LOCATION IS Dioni Diaz MD LAB BLOOD ORDERA BLES Edited Result - Final [facility] Department [place] [address] * (ABNORMAL) CBC with auto differential (01/01/2020 12:36 AM CDT) WBC 7.3 3.8 - 9.9 K/cumm [facility] Hgb 14.9 13.0 - 17.5 g/dL [facility] Hct 44.6 38.9 - 50.3 % [facility] Plt 192 150 - 400 K/cumm [facility] MPV 10.7 9.1 - 12.3 fL [facility] RBC 4.44 4.30 - 5.80 M/cumm [facility] MCV 100.5(H) 81.3 - 96.4 fL [facility] MCH 33.6(H) 27.1 - 33.3 pg [facility] MCHC 33.4 32.3 - 35.7 g/dL [facility] RDW CV 13.2 11.1 - 14.9 % [facility] RDW SD 49.5(H) 35.7 - 48.1 fL [facility] NRBC abs 0.00 0.00 - 0.01 K/cumm [facility] Blood specimen (specimen) 01/01/2020 12:36 AM CDT 01/01/2020 12:53 AM CDT Narrative [facility] - 01/01/2020 12:59 AM CDT THE COLLECTION LOCATION IS Dioni Diaz MD LAB BLOOD ORDERA BLES Final Result [facility] Department [place] [address] * Basic metabolic panel (01/01/2020 12:36 AM CDT) Sodium 139 135 - 145 mmol/L [facility] Potassium, pl 4.3 3.3 - 4.9 mmol/L [facility] Chloride 105 97 - 110 mmol/L [facility] CO2 23 22 - 32 mmol/L [facility] Anion gap 11 2 - 15 mmol/L [facility] BUN 17 8 - 25 mg/dL [facility] Creatinine 1.17 0.80 - 1.30 mg/dL [facility] Glucose 112 70 - 199 mg/dL [facility] Comment: Interpretive Data Fasting glucose >/= [...] interpretive data was last revised 2017. Calcium 9.3 8.5 - 10.3 mg/dL [facility] Blood specimen (specimen) 01/01/2020 12:36 AM CDT 01/01/2020 12:43 AM CDT Narrative [facility] - 01/01/2020 1:51 AM CDT [facility] LOCATION IS Dioni Diaz MD LAB BLOOD ORDERA BLES Final Result [facility] Department [place] [address] * ECG 12-LEAD (01/01/2020 12:13 AM CDT) Narrative [facility] - 01/01/2020 12:13 AM CDT Liz Enriquez MD ? 01/01/2020 12:13 AM ECG 12 lead Date/Time: 01/01/2020 12:13 AM Performed by: Liz Enriquez MD Authorized by: Jong Ward MD Rate: ??ECG rate: ??67 ??ECG rate assessment: normal ?? Rhythm: ??Rhythm: sinus rhythm ?? Ectopy: ??Ectopy: PVCs ?? QRS: ??QRS axis: ??Normal Conduction: ??Conduction: abnormal ?? ST segments: ??ST segments: ??Normal T waves: ??T waves: normal ?? Previous ECG: ??Previous ECG: ??Unavailable Interpretation: ??Interpretation: non-specific ?? Recommended Follow-up: ??Recommended follow up: further workup in the ED ?? Procedure Note Liz Enriquez MD - 01/01/2020 12:13 AM CDT Procedure ECG 12 lead Date/Time: 01/01/2020 12:13 AM Performed by: Liz Enriquez MD Authorized by: Jong Ward MD Rate: ECG rate: 67 ECG rate assessment: normal Rhythm: Rhythm: sinus rhythm Ectopy: Ectopy: PVCs QRS: QRS axis: Normal Conduction: Conduction: abnormal ST segments: ST segments: Normal T waves: T waves: normal Previous ECG: Previous ECG: Unavailable Interpretation: Interpretation: non-specific Recommended Follow-up: Recommended follow up: further workup in the ED Liz Enriquez MD 01/01/20 0013 us Dioni Diaz MD ECG ORDERABLES Final Result [facility] documented in this encounter Visit Diagnoses Diagnosis History of thyroidectomy- Primary Other postprocedural status Hypocalcemia Essential hypertension Unspecified essential hypertension documented in this encounter Orders Lab Orders Without Results Count Last Ordered D ate First Ordered Date PHOSPHORUS 1 01/01/2020 documented in this encounter Care Teams Early Childhood Aide Classroom Relationship Specialty [place] [id number] [address] [facility] [place] [address] PCP - General 11/12/16 03/11/22 documented as of this encounter
--- OUTSIDE RECORDS SUMMARY | 2024-10-11 02:01 | XMS_ITS | Encounter Summary ---
Author Organization 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 No / Unsure 01/01/2020 2:13 AM CDT documented as of this encounter Plan of Treatment Upcoming Encounters Date Type Department Care Team (Latest Contact Info) Description 10/23/2024 10:00 AM MELT DOWN FURNACE OPERATOR Hospital Encounter [facility] Operating Room [address] [place] [address] [place] [address] [id number] 10/23/2024 10:00 AM MELT DOWN FURNACE OPERATOR - 10/23/2024 1:00 PM MELT DOWN FURNACE OPERATOR Surgery [facility] Operating Room [address] [place] [address] [place] [address] [address] [address] [place] [address] ARTHROPLASTY TOTAL KNEE LEFT Scheduled Procedures Name Priority Associated Diagnoses Date/Ti me ARTHROPLASTY TOTAL KNEE left knee osteoarthritis 10/23/2024 10:00 AM MELT DOWN FURNACE OPERATOR ESOPHAGOGASTRODUODENOSCOPY Dysphagia, unspecified type documented as of this encounter Visit Diagnoses Not on filedocumented in this encounter Care Teams Production Grader Relationship Specialty [place] [address] [address] [facility] [address] [place] [address] PCP - General 11/12/16 03/11/22 documented as of this encounter
--- OUTSIDE RECORDS SUMMARY | 2024-10-11 02:01 | XMS_ITS | Encounter Summary ---
Author Organization [facility] Facility Care Team Providers Care Lay Out And Detail Drafter Name Role Phone Santino Funk MD Primary Care Provider + Encounter Details Date Type Department Care Team (Latest Contact Info) Description 01/08/2020 Travel Social History Tobacco Use Types Packs/Day Years Used Date Smoking Tobacco: Former Cigarettes 1 966 - 1966 Smokeless Tobacco: Never Alcohol Use Standard Drinks/Week Comments Yes 1 (1 standard drink = 0.6 oz pur e alcohol) PHQ-2 Answer Date Recorded PHQ-2 Score 0 12/12/2018 Sex and Gender Information Value Date Recorded Sex Assigned at Not on file Legal Sex Male 3:25 PM ASSEMBLER TRIM Gender Identity Not on file Sexual Orientation [...] (Latest Contact Info) Description 10/23/2024 10:00 AM ASSEMBLER TRIM Hospital Encounter [facility] Operating Room [address] [place] [address] [place] [address] [id number] 10/23/2024 10:00 AM ASSEMBLER TRIM - 10/23/2024 1:00 PM ASSEMBLER TRIM Surgery [facility] Operating Room [address] [place] [address] [place] [address] [facility] [address] [place] [address] ARTHROPLASTY TOTAL KNEE LEFT Scheduled Procedures Name Priority Associated Diagnoses Date/Ti me ARTHROPLASTY TOTAL KNEE left knee osteoarthritis 10/23/2024 10:00 AM ASSEMBLER TRIM ESOPHAGOGASTRODUODENOSCOPY Dysphagia, unspecified type documented as of this encounter Visit Diagnoses Not on filedocumented in this encounter Care Teams Lay Out And Detail Drafter Relationship Specialty [place] [address] [address] [facility] [address] [place] [address] PCP - General 11/12/16 03/11/22 documented as of this encounter
--- OUTSIDE RECORDS SUMMARY | 2024-10-11 02:01 | XMS_ITS | Encounter Summary ---
Author Organization [facility] Healthcare Address [address] [place] [address] Care Team Providers Care Senior Information Security Consultant Name Role Phone Santino Funk MD Primary Care Provider + Reason for Referral * Diagnostic Imaging (Routine) - Closed Specialty Diagnoses / Procedures Referred By Contac t Referred To Contact Diagnoses Transient ischemic attack (TIA) Left sided numbness Procedures [place] [address] [address] [address] Phone: tel: fax: Referral ID Status Reason Start Date Expiration Date Visits Re quested Visits Authorized [id number] Closed 02/07/2020 08/18/2021 1 1 Reason for Visit * Diagnostic Imaging (Routine) - Closed Specialty Diagnoses / Procedures Referred By Contboone t Referred To Contact Diagnoses Transient ischemic attack (TIA) Left sided numbness Procedures [place] [address] [address] [address] Phone: tel: fax: Referral ID Status Reason Start Date Expiration Date Visits Re quested Visits Authorized [id number] Closed 02/07/2020 08/18/2021 1 1 Encounter Details Date Type Department Care Team (Latest Contact Info) Description 02/14/2020 7:55 AM CDT - 02/14/2020 9:49 AM CDT Hospital Encounter [facility] Vascular Lab [address] [place] [address] [place] [address] [facility] [address] [place] [address] Transient ischemic attack (TIA); Left sided numbness Discharge Disposition: Discharge to home or self care Social History Tobacco Use Types Packs/Day Years Used Date Smoking Tobacco: Former Cigarettes 1 6406 Smokeless Tobacco: Never Alcohol Use Standard Drinks/Week Comments Yes 1 (1 standard drink = 0.6 oz pur e alcohol) PHQ-2 Answer Date Recorded PHQ-2 Score 0 12/12/2018 Sex and Gender Information Value Date Recorded Sex Assigned at Not on file Legal Sex Male 3:25 PM BEVERAGE INSPECTION MACHINE TENDER Gender Identity Not on file [...] (150 mcg total) by mouth early childhood worker before breakfast 60 tablet 1 12/31/2019 0 [...] (Latest Contact Info) Description 10/23/2024 10:00 AM BEVERAGE INSPECTION MACHINE TENDER Hospital Encounter [facility] Operating Room [address] [place] [address] [place] [address] [address] 10/23/2024 10:00 AM BEVERAGE INSPECTION MACHINE TENDER - 10/23/2024 1:00 PM BEVERAGE INSPECTION MACHINE TENDER Surgery [facility] Operating Room [address] [place] [address] [place] [address] [id number] ARTHROPLASTY TOTAL KNEE LEFT Scheduled Procedures Name Priority Associated Diagnoses Date/Ti me ARTHROPLASTY TOTAL KNEE left knee osteoarthritis 10/23/2024 10:00 AM BEVERAGE INSPECTION MACHINE TENDER ESOPHAGOGASTRODUODENOSCOPY Dysphagia, unspecified type documented as of this encounter Procedures Procedure Name Priority Date/Time Associated Diagnosis Comments US CAROTIDS DUPLEX BILATERAL Schedule Routine, Read Routine (OP Routine) 02/14/2020 9:26 AM CDT Transient ischemic attack (TIA) Left sided numbness documented in this encounter Results * US Carotids Bilateral (02/14/2020 9:26 AM [...] Cat Sandoval M.D. Nayan Mahajan II, MD [facility] US PROCEDURES Final Resu lt documented in this encounter Visit Diagnoses Diagnosis Transient ischemic attack (TIA) Unspecified transient cerebral ischemia Left sided numbness documented in this encounter Care Teams Senior Information Security Consultant Relationship Specialty [place] [address] [facility] [address], [place] [address] PCP - General 11/12/16 03/11/22 documented as of this encounter
--- OUTSIDE RECORDS SUMMARY | 2024-10-11 02:01 | XMS_ITS | Encounter Summary ---
Author Organization [facility] Facility Care Team Providers Care Raw Shellfish Preparer Name Role Phone Santino Funk MD Primary Care Provider + Encounter Details Date Type Department Care Team (Latest Contact Info) Description 12/31/2019 Travel Social History Tobacco Use Types Packs/Day Years Used Date Smoking Tobacco: Former Cigarettes 1 966 - 1966 Smokeless Tobacco: Never Alcohol Use Standard Drinks/Week Comments Yes 1 (1 standard drink = 0.6 oz pur e alcohol) PHQ-2 Answer Date Recorded PHQ-2 Score 0 12/12/2018 Sex and Gender Information Value Date Recorded Sex Assigned at Not on file Legal Sex Male 3:25 PM WOOD GRINDER Gender Identity Not on file Sexual Orientation Not on file COVID-19 Exposure Response Date Recorded In the last month, have you been in contact with someone who was confirmed or suspected to have Coronavirus / COVID-19? No / Unsure 12/31/2019 11:59 PM CDT documented as of this encounter Plan of Treatment Upcoming Encounters Date Type Department Care Team (Latest Contact Info) Description 10/23/2024 10:00 AM WOOD GRINDER Hospital Encounter [facility] Operating Room [address] [place] [address] [place] [address] [phone] 10/23/2024 10:00 AM WOOD GRINDER - 10/23/2024 1:00 PM WOOD GRINDER Surgery [facility] Operating Room [address] [place] [address] [place] [address] [address] [facility] [address] [place] [address] ARTHROPLASTY TOTAL KNEE LEFT Scheduled Procedures Name Priority Associated Diagnoses Date/Ti me ARTHROPLASTY TOTAL KNEE left knee osteoarthritis 10/23/2024 10:00 AM WOOD GRINDER ESOPHAGOGASTRODUODENOSCOPY Dysphagia, unspecified type documented as of this encounter Visit Diagnoses Not on filedocumented in this encounter Care Teams Raw Shellfish Preparer Relationship Specialty [place] [address] [address] [facility] [address] [place] [address] PCP - General 11/12/16 03/11/22 documented as of this encounter
--- OUTSIDE RECORDS SUMMARY | 2024-10-11 02:01 | XMS_ITS | Encounter Summary ---
Author Organization [facility] Facility Care Team Providers Care Log Cut Off Sawyer Name Role Phone Santino Funk MD Primary Care Provider + Encounter Details Date Type Department Care Team (Latest Contact Info) Description 01/04/2020 Travel Social History Tobacco Use Types Packs/Day Years Used Date Smoking Tobacco: Former Cigarettes 1 966 - 1966 Smokeless Tobacco: Never Alcohol Use Standard Drinks/Week Comments Yes 1 (1 standard drink = 0.6 oz pur e alcohol) PHQ-2 Answer Date Recorded PHQ-2 Score 0 12/12/2018 Sex and Gender Information Value Date Recorded Sex Assigned at Not on file Legal Sex Male 3:25 PM SLICER MACHINE OPERATOR Gender Identity Not on file Sexual Orientation Not on file COVID-19 Exposure Response Date Recorded In the last month, have you been in contact with someone who was confirmed or suspected to have Coronavirus / COVID-19? No / Unsure 01/04/2020 9:46 AM CDT documented as of this encounter Plan of Treatment Upcoming Encounters Date Type Department Care Team (Latest Contact Info) Description 10/23/2024 10:00 AM SLICER MACHINE OPERATOR Hospital Encounter [facility] Operating Room [address] [place] [address] [place] [address] [phone] 10/23/2024 10:00 AM SLICER MACHINE OPERATOR - 10/23/2024 1:00 PM SLICER MACHINE OPERATOR Surgery [facility] Operating Room [address] [place] [address] [place] [address] [address] [address] [place] [address] ARTHROPLASTY TOTAL KNEE LEFT Scheduled Procedures Name Priority Associated Diagnoses Date/Ti me ARTHROPLASTY TOTAL KNEE left knee osteoarthritis 10/23/2024 10:00 AM SLICER MACHINE OPERATOR ESOPHAGOGASTRODUODENOSCOPY Dysphagia, unspecified type documented as of this encounter Visit Diagnoses Not on filedocumented in this encounter Care Teams Log Cut Off Sawyer Relationship Specialty [place] [address] [address] [facility] [address] [place] [address] PCP - General 11/12/16 03/11/22 documented as of this encounter
--- OUTSIDE RECORDS SUMMARY | 2024-10-11 02:01 | XMS_ITS | Encounter Summary ---
Author Organization [facility] Address [address] [place] [address] Care Team Providers Care Traffic Rate Clerk Name Role Phone Santino Funk MD Primary Care Provider + Reason for Referral * Diagnostic Imaging (Routine) - Closed Specialty Diagnoses / Procedures Referred By Dillan mccallum Referred To Contact Radiology Diagnoses 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) Transient ischemic attack (TIA) Left sided numbness Procedures MRI [place] [address] [address] Phone: tel: fax: [address] [phone] Referral ID Status Reason Start Date Expiration Date Visits Re quested Visits Authorized [id number] Closed 02/07/2020 08/18/2021 1 1 Reason for Visit * Diagnostic Imaging (Routine) - Closed Specialty Diagnoses / Procedures Referred By Dillan mccallum Referred To Contact Radiology Diagnoses 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) Transient ischemic attack (TIA) Left sided numbness Procedures MRI [place] [address] [address] Phone: tel: fax: [address] [place] [address] Referral ID Status Reason Start Date Expiration Date Visits Re quested Visits Authorized [id number] Closed 02/07/2020 08/18/2021 1 1 Encounter Details Date Type Department Care Team (Latest Contact Info) Description 02/14/2020 9:50 AM CDT - 02/14/2020 11:59 PM CDT Hospital Encounter [facility] Imaging and Radiology [address] [place] [address] [place] [address] [facility][1] [address] [place] [address] Late onset Alzheimer's disease without behavioral disturbance (CMS/HCC); Transient ischemic attack (TIA); Left sided numbness Discharge Disposition: Discharge to home or self care Social History Tobacco Use Types Packs/Day Years Used Date Smoking Tobacco: Former Cigarettes 1 056 7279 Smokeless Tobacco: Never Alcohol Use Standard Drinks/Week Comments Yes 1 (1 standard drink = 0.6 oz pur e alcohol) PHQ-2 Answer Date Recorded PHQ-2 Score 0 12/12/2018 Sex and Gender Information Value Date Recorded Sex Assigned at Not on file Legal Sex Male 3:25 PM FITNESS MANAGER Gender Identity Not on file Sexual [...] 1 tablet (150 mcg total) by mouth retail parts pro before breakfast 60 tablet 1 12/31/2019 0 [...] (Latest Contact Info) Description 10/23/2024 10:00 AM FITNESS MANAGER Hospital Encounter [facility] Operating Room [address] [place] [address] [place] [address] [address] 10/23/2024 10:00 AM FITNESS MANAGER - 10/23/2024 1:00 PM FITNESS MANAGER Surgery [facility] Operating Room [address] [place] [address] [place] [address] [address] ARTHROPLASTY TOTAL KNEE LEFT Scheduled Procedures Name Priority Associated Diagnoses Date/Ti me ARTHROPLASTY TOTAL KNEE left knee osteoarthritis 10/23/2024 10:00 AM FITNESS MANAGER ESOPHAGOGASTRODUODENOSCOPY Dysphagia, unspecified type documented as of this encounter Procedures Procedure Name Priority Date/Time Associated Diagnosis Comments MRI BRAIN WO CONTRAST Schedule Routine, Read Routine (OP Routine) 02/14/2020 10:29 AM CDT Late onset Alzheimer's disease without behavioral disturbance (CMS/HCC) Transient ischemic attack (TIA) Left sided numbness documented in this encounter Results * MRI Brain WO Contrast (02/14/2020 10:29 [...] previous. ??Normal flow-voids are seen within the elem of [place]. ??Posterior fossa the brain appears [...] previous. Normal flow-voids are seen within the elem of [place]. Posterior fossa the brain appears [...] MD IM MRI PROCEDURES Final Res ult documented in this encounter Visit Diagnoses Diagnosis 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) Transient ischemic attack (TIA) Unspecified transient cerebral ischemia Left sided numbness documented in this encounter Care Teams Traffic Rate Clerk Relationship Specialty [place] [address] [address] PCP - General 11/12/16 03/11/22 documented as of this encounter
--- OUTSIDE RECORDS SUMMARY | 2024-10-11 02:01 | XMS_ITS | Encounter Summary ---
Author Organization [facility] Address [address] [place] [address] Phone Care Team Providers Care Can Dryer Name Role Phone Santino Funk MD Primary Care Provider + Encounter Details Date Type Department Care Team (Late st Contact Info) Description 01/08/2020 10:15 AM CDT Office Visit [facility] ([facility]) - [facility] ENT [address] [facility] Advanced Medicine [address]th [place] [address] [place] [phone] Saqib Henry MD [address] [place], [place] [phone] Thyroid goiter (Primary Dx) Social History Tobacco Use Types Packs/Day Years Used Date Smoking Tobacco: Former Cigarettes 1 966 - 2024 Smokeless Tobacco: Never Alcohol Use Standard Drinks/Week Comments Yes 1 (1 standard drink = 0.6 oz pur e alcohol) PHQ-2 Answer Date Recorded PHQ-2 Score 0 12/12/2018 Sex and Gender Information Value Date Recorded Sex Assigned at Not on file Legal Sex Male 3:25 PM GLUE CLAMP OPERATOR Gender Identity Not on file Sexual [...] Weight 101.4 kg (223 lb 9.6 oz) 020 10:38 AM CDT Height - - Body Mass Index 30.33 01/01/2020 12:01 AM CDT documented in this encounter Progress Notes * Saqib Henry MD - 01/08/2020 10:15 AM CDT [facility] Department of Otolaryngology Division of Head and Neck Surgery 01/08/2020 Abrahan Gtz [phone] Referred by: Dr. Santino Mcgarry Chief Complaint: Thyroid nodules HPI: Mr. Gtz is a 75 y.o. year old male with past history of asthma, depression, cataracts, and seizures who presents in consultation for thyroid goiter s/p substernal thyroidectomy (12/28/19). No issues post-op with PTH of 49. Feels voice was initially a bit hoarse but now improved to baseline. No other complaints. PAST MEDICAL HISTORY: Past Medical History: Diagnosis [...] Visual disturbance Vision changes - (Added by KIP Conv) PAST SURGICAL HISTORY: Past Surgical History: Procedure Laterality Date ??? CATARACT EXTRACTION, BILATERAL Bilateral 2018 ??? HERNIA REPAIR 1980 Hiatal Hernia repair ??? [place] ABDOMEN SURGERY PROC UNLISTED Hernia Repair - (Added by KIP Cason) SOCIAL HISTORY: Social History Socioeconomic History ??? [...] Last attempt to quit: 1966 Years since quittin.2 ??? Smokeless tobacco: Never Used Substance and [...] file Gets together: Not on file Attends amish service: Not on file Active member of [...] as needed ) 30 capsule 0 ??? guaifenesin/pseudoephedrne HCl (MUCINEX D MAXIMUM STRENGTH ORAL) Take 15 mL by mouth daily as needed ??? levothyroxine (SYNTHROID) 150 mcg tablet Take 1 tablet (150 mcg total) by mouth behavioral health consultant before breakfast 60 tablet 1 ??? omeprazole [...] by mouth daily as needed 5 ??? temazepam (RESTORIL) 15 mg capsule Take 15 mg by mouth nightly as needed for sleep ??? UNABLE TO FIND Take 1 each [...] easy bruising PHYSICAL EXAM Vital Signs: Wt 101.4 kg (223 lb 9.6 oz) BMI 30.33 kg/m?? General: Well-developed, well-nourished. No distress. Communication [...] doing well. PTH WNL. - RTC in 3 months Saqib Henry MD PhD Ore Tester Attending, Head and Neck Surgery Department of Otolaryngology [facility] [phone] (Clinical nurse Jacquie Hensley RN) Pager [phone] documented in this encounter Plan of Treatment Upcoming Encounters Date Type Department Care Team (Latest Contact Info) Description 10/23/2024 10:00 AM GLUE CLAMP OPERATOR Hospital Encounter [facility] Operating Room [address] [place] [address] [place] [address] [phone] 10/23/2024 10:00 AM GLUE CLAMP OPERATOR - 10/23/2024 1:00 PM GLUE CLAMP OPERATOR Surgery [facility] Operating Room [address] [place] [address] [place] [address] [facility] [address] [place] [address] ARTHROPLASTY TOTAL KNEE LEFT Scheduled Procedures Name Priority Associated Diagnoses Date/Ti me ARTHROPLASTY TOTAL KNEE left knee osteoarthritis 10/23/2024 10:00 AM GLUE CLAMP OPERATOR ESOPHAGOGASTRODUODENOSCOPY Dysphagia, unspecified type documented as of this encounter Visit Diagnoses Diagnosis Thyroid goiter- Primary Goiter, unspecified documented in this encounter Care Teams Can Dryer Relationship Specialty [place] [address] [facility] [address] [place] [address] PCP - General 11/12/16 03/11/22 documented as of this encounter
--- OUTSIDE RECORDS SUMMARY | 2024-10-11 02:01 | XMS_ITS | Encounter Summary ---
Author Organization [facility] Address [address] [facility] [address] [place] [address] Care Team Providers Care Director Of Science Name Role Phone Santino Funk MD Primary Care Provider + Reason for Referral * Procedure (Routine) - Closed Specialty Diagnoses / Procedures Referred By Contac t Referred To Contact Diagnoses Primary osteoarthritis of left knee Primary osteoarthritis of right knee Procedures Large Joint (Hip, Knee, Shoulder) Injection: L knee Carol Aceves [place] [id number] [place] [address] Phone: tel: fax: [facility] Referral ID Status Reason Start Date Expiration Date Visits Re quested Visits Authorized [id number] Closed 07/11/2020 08/10/2021 1 1 Reason for Visit * Reason Comments Injections Injections Encounter Details Date Type Department Care Team (Latest Contact Info) Description 07/11/2020 8:15 AM CDT Office Visit [facility] [address] [address] Carol Aceves [place] [id number] [place] [address] Primary osteoarthritis of left knee (Primary [...] file Legal 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 Gender Identity Not on file Sexual Orientation Not on file documented as of this encounter Last Filed Vital Signs Vital Sign Reading Time Taken Comments Blood Pressure - - Pulse - - Temperature 36 ??C (96.8 ??F) 07/11/2020 8:19 AM CDT Respiratory Rate - - Oxygen Saturation - - Inhaled Oxygen Concentration - - Weight 101.6 kg (224 lb) 07/11/2020 8:19 AM CDT Height 182.9 cm (6' 0.01 ) 07/11/2020 8:19 AM CD T Body Mass Index 30.37 07/11/2020 8:19 AM CDT documented in this encounter Progress Notes * Carol Aceves PA - 07/11/2020 8:15 AM CDTAssociated Order(s): Large Joint (Hip, Knee, Shoulder) Injection: L knee Post-Procedure Diagnose(s): Primary osteoarthritis of left knee; Primary osteoarthritis of right knee Images from the original note were not included. FOLLOW UP VISIT Subjective CHIEF COMPLAINT He had concerns including Injections of the Left Knee and Injections of the Right Knee. HISTORY OF PRESENT ILLNESS This is a 75-year-old male who is here today to be re-evaluated for bilateral knees for injections.His last injections were in January. He states he has done well until recently when this started wearing off again. He thought it had not been quite that long since he had injections. He denies any changes other than his knee has started hurting more again. He states that the left is worse than his right. He states that at times his knees get very swollen. Sometimes, this swelling is bad enough that he gets swelling down into his feet. He does state that this is better today. He is wondering if he can go ahead and have injections. Pain Assessment Pain Assessment: 0-10 Pain Score: 9 Pain Location: Knee Pain Orientation: Right, Left Pain Descriptors: Aching Pain Frequency: Constant/continuous Pain Onset: Ongoing Clinical Progression: Not changed Result of Injury: No Work-Related Injury: No MEDICATIONS He has a current medication list which includes the following prescription(s): acetaminophen, aspirin-sodium bicarbonate-citric acid, bismuth subsalicylate, calcium carbonate, cholecalciferol, docusate sodium, donepezil, guaifenesin/pseudoephedrne hcl, levothyroxine, omeprazole, oxycodone, polyethyl chayo glycol, sildenafil (pulm.hypertension), tamsulosin, temazepam, triamcinolone, UNABLE TO FIND, ventolin hfa, and gabapentin. REVIEW OF SYSTEMS Review of Systems Constitutional: [...] Skin: Negative for rash. Neurological: Negative for seizures, weakness and numbness. Hematological: Does not bruise/bleed easily. Psychiatric/Behavioral: Negative for dysphoric mood. The patient is not nervous/anxious. Objective PHYSICAL EXAM Temp 36 ??C (96.8 ??F) (Temporal) Ht 182.9 cm (6' 0.01 ) Wt 101.6 kg (224 lb) BMI 30.37 kg/m?? Ortho Exam He is alert and oriented x3. He is in no acute distress. He is cooperative with the exam. He has some bilateral lower extremity edema approximately 1+. He has minimal effusion to the left and a smalleffusion to the right. He has fairly well-preserved range of motion from almost full extension bilaterally to approximately 120?? of flexion to the right and about 115?? of flexion to the left. He does not appear to have any significant difficulties with ankle range of motion. He is ambulating fairly easily although he is limping to his left lower extremity at this time. He is not currently usingan assistive device. He appears neurovascularly intact. REVIEW OF X-RAYS/STUDIES/LABS None today. Assessment/Plan Abrahan was seen today for injections and injections. Diagnoses and all orders for this visit: Primary osteoarthritis of left knee Primary osteoarthritis of right knee Large Joint (Hip, Knee, Shoulder) Injection: L knee Performed by: LORI Herman Authorized by: LORI Herman Large Joint Injection/Aspiration: Consent Given by: Patient [...] no immediate complications PLAN This is a 75-year-old male who is here today to be re-evaluated for his bilateral knee osteoarthritis. He last had injections in January. It has been approximately 5 months since last injections and hehas done well until recently when he started hurting again. After further discussion with the patient and his verbalization of understanding the risks and benefits of cortisone injection, we proceeded with the injections as above. He tolerated this well without complication. He knows that he can have these every 3-4 months as needed. He knows to call with any further questions or concerns. LORI Herman documented in this encounter Plan of Treatment Upcoming Encounters Date Type Department Care Team (Latest Contact Info) Description 10/23/2024 10:00 AM [facility] Hospital Encounter [facility] Operating Room [address] [place] [address] [place] [address] [address] 10/23/2024 10:00 AM SUPERVISOR SHOP - 10/23/2024 1:00 PM [facility] Surgery [facility] Operating Room [address] [place] [address] [place] [address] [address] ARTHROPLASTY TOTAL KNEE LEFT Scheduled Procedures Name Priority Associated Diagnoses Date/Ti me ARTHROPLASTY TOTAL KNEE left knee osteoarthritis 10/23/2024 10:00 AM SUPERVISOR SHOP ESOPHAGOGASTRODUODENOSCOPY Dysphagia, unspecified type documented as of this encounter Procedures Procedure Name Priority Date/Time Associated Diagnosis Comments MA ARTHROCENTESIS ASPIR&/INJ MAJOR JT/BURSA W/O US Routine 07/11/2020 8:15 AM CDT Primary osteoarthritis of left knee Primary osteoarthritis of right knee documented in this encounter Results * MA ARTHROCENTESIS ASPIR&/INJ MAJOR JT/BURSA W/O US (07/11/2020 8:15 AM CDT) Carol Miller PA - 07/11/2020 8:15 AM CDT LORI Herman ? 07/11/2020 ??2:08 PM Large Joint (Hip, Knee, Shoulder) Injection: L knee Performed by: LORI Herman Authorized by: LORI Herman Large Joint Injection/Aspiration: ??Consent Given by: ??Patient [...] the procedure well with no immediate complications Carol SANDOVAL IN CLINIC/BEDSIDE ORDERABLES Final Result [...] mL 4 mL, One-Time Injection, Starting on Jo 07/11/20 at 1407, For 1 doseIndications:Primary osteoarthritis of left knee,Primary osteoarthritis of right knee Given 07/11/2020 2:07 PM CDT 4 mL methylPREDNISolone acetate (DEPO-medrol) injection 80 mg 80 mg, intra-articular, One-Time Injection, Starting on Jo 07/11/20 at 1407, For 1 doseIndications:Primary osteoarthritis of left knee,Primary osteoarthritis of right knee Given 07/11/2020 2:07 PM CDT 80 mg documented in this encounter Care Teams Director Of Science Relationship Specialty [place] [id number] [place] [address] PCP - General 11/12/16 03/11/22 documented as of this encounter
--- OUTSIDE RECORDS SUMMARY | 2024-10-11 02:01 | XMS_ITS | Encounter Summary ---
Author Organization [facility] Address [address] [place] [address] Phone Care Team Providers Care Applications Developer Name Role Phone Santino Funk MD Primary Care Provider + Encounter Details Date Type Department Care Team (Late st Contact Info) Description 01/04/2020 10:00 AM CDT Office Visit [facility] ([facility]) - [facility] ENT [address] [facility] Advanced [facility] 11th [address] [address] Carolyne Prater PA [address] [facility] [phone] Stephen (Primary Dx) Social History Tobacco Use Types Packs/Day Years Used Date Smoking Tobacco: Former Cigarettes 1 966 - 9082 Smokeless Tobacco: Never Alcohol Use Standard Drinks/Week Comments Yes 1 (1 standard drink = 0.6 oz pur e alcohol) PHQ-2 Answer Date Recorded PHQ-2 Score 0 12/12/2018 Sex and Gender Information Value Date Recorded Sex Assigned at Not on file Legal 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 Department of Otolaryngology - Head & Neck Surgery 01/04/2020 Name: Abrahan Gtz Date of : 1944 CC: drain pull Problem List Endocrine/Metabolic Goiter - Primary Overview Added automatically from request for surgery [id number] HISTORY: is POD 7 from total thyroidectomy. Patient reports he has been doing well since discharge and denies fever, chills, swelling around or drainage from incision. Patient reports output from STACIE drain has continued to decrease and for the past 24hrs has put out less than 30mL of serosanguinous drainage. PHYSICAL EXAM: Vitals: 01/04/20 0959 Weight: 97.5 kg (215 lb) General Appearance: Well-developed, well-nourished in no apparent distress. Voice and breathing arenormal Head and Face: Normocephalic, atraumatic. No facial skin lesions. Face is symmetric Neurologic: Facial and hypoglossal nerves intact bilaterally. Affect is normal. Oral Cavity/Oropharynx: No visible lesions. Neck: Incision c/d/i, drain site with no sign of infection. No evidence of lymphadenopathy, masses or tenderness. STACIE drain removed without complication and patient tolerated it well. Output : scant since 3/25pm; serosanguinous IMPRESSION/PLAN: Mr. Gtz is doing well. Instructed on wound care. All questions and concerns were addressed. Continue with scheduled follow up with Dr. Henry on 01/07 documented in this encounter Plan of Treatment Upcoming Encounters Date Type Department Care Team (Latest Contact Info) Description 10/23/2024 10:00 AM [facility] Hospital Encounter [facility] Operating Room [address] [place] [address] [place] [address] [address] 10/23/2024 10:00 AM PERCHER - 10/23/2024 1:00 PM [facility] Surgery [facility] Operating Room [address] [place] [address] [place] [address] [address] ARTHROPLASTY TOTAL KNEE LEFT Scheduled Procedures Name Priority Associated Diagnoses Date/Ti me ARTHROPLASTY TOTAL KNEE left knee osteoarthritis 10/23/2024 10:00 AM PERCHER ESOPHAGOGASTRODUODENOSCOPY Dysphagia, unspecified type documented as of this encounter Visit Diagnoses Diagnosis Goiter- Primary Goiter, unspecified documented in this encounter Care Teams Applications Developer Relationship Specialty [place] [address] [place] [address] PCP - General 11/12/16 03/11/22 documented as of this encounter
--- OUTSIDE RECORDS SUMMARY | 2024-10-11 02:01 | XMS_ITS | Encounter Summary ---
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 Gender Identity Not on file Sexual Orientation Not on file documented as of this encounter Discharge Disposition Disposition Code Departure Means Destination Discharge to home or self care documented in this encounter Plan of Treatment Upcoming Encounters Date Type Department Care Team (Latest Contact Info) Description 10/23/2024 10:00 AM HOUSE MOVING SUPERVISOR Hospital Encounter [facility] Operating Room [address] [place] [address] [place] [address] [facility] [address] [place] [address] 10/23/2024 10:00 AM HOUSE MOVING SUPERVISOR - 10/23/2024 1:00 PM HOUSE MOVING SUPERVISOR Surgery [facility] Operating Room [address] [place] [address] [place] [address] [facility] [address] [place] [address] ARTHROPLASTY TOTAL KNEE LEFT Scheduled Procedures Name Priority Associated Diagnoses Date/Ti me ARTHROPLASTY TOTAL KNEE left knee osteoarthritis 10/23/2024 10:00 AM HOUSE MOVING SUPERVISOR ESOPHAGOGASTRODUODENOSCOPY Dysphagia, unspecified type documented as of this encounter Visit Diagnoses Not on filedocumented in this encounter Care Teams Top Taper Machine Relationship Specialty [place] [address] [facility] [address] [place] [address] PCP - General 11/12/16 03/11/22 documented as of this encounter
--- OUTSIDE RECORDS SUMMARY | 2024-10-11 02:02 | XMS_ITS | Encounter Summary ---
Author Organization [facility] Address [address] [place] [address] Care Team Providers Care Hotel Assistant General Manager Name Role Phone Santino Funk MD Primary Care Provider + Encounter Details Date Type Department Care Team (Late st Contact Info) Description 12/28/2019 10:47 AM CDT Anesthesia Event [facility] Operating Room [address] [place] [address] Elda Watts MD [address] [place] [address] Joe Mojica MD [address] [place] [address] Anesthesia Record Procedure Summary Procedure Name Responsible Anesthesiologist Anesthesia Start Time Anesthesia Stop Time THYROIDECTOMY - TOTAL (Bilateral: Neck) Elda Watts MD 12/28/19 1047 12/28/19 1415 Events Date Time Event Comment 12/28/2019 0840 1047 An Start 1049 In Room 1050 An Start Data 1054 An Induction The patient was reevaluated immediately before moderate or deep sedation use and before anesthesia induction. 1058 An Intubation 1104 HOB turned 180 degrees 1107 Local injected by surgeon 1109 Anesthesia Ready 1121 Proc Start 1121 Incision Start 1359 Proc Fin 1403 An Extubation 1407 an stop data 1409 Out of Room 1410 Handoff to RN I completed my handoff [...] disposition at the time of handoff: PACU 1415 An Stop Meds Name Total lidocaine 1 % PF 80 mg fentaNYL 250 mcg propofol 320 mg succinylcholine 80 mg dexamethasone 4 mg/ml 8 mg ondansetron PF (ZOFRAN) 2 mg/mL injectio n 4 mg ceFAZolin 2,000 mg phenylephrine infusion (100 mcg/mL) 0.86 mg dexmedetomidine vial 4 mcg/mL 20 mcg HYDROmorphone 2 mg/mL 0.4 mg Lactated Ringer's (LR) infusion 800 mL LR 600 mL * Agents Name O2% N2O O2 N2O Air Sevoflurane Inspired Sevoflurane * Blood No blood administrations on file. Lines, Drains, and Airways Type Details Placement Removal RETIRED Surgical Site 09/22/18; 0948; Bilateral; Knee; 12/30/19 09/22/18 0948 by Joanie Goldman RN 12/30/19 0000 by Libby Navarrete RN Peripheral IV Placement Date: 12/28/19; Placement Time: 0836; Catheter Size: 20 G; Orientation: Right; Location: Hand; Site Prep: Chlorhexidine; Technique: Anatomical landmarks; Insertion Attempts: 1; Patient Tolerance: Tolerated well; Removal Date: 01/01/20; Removal Time: 0052; Removal Reason: Not present on admission 12/28/19 0836 by Blanca Hampton RN 01/01/20 0052 by Becky Zapata RN Peripheral IV Placement Date: 12/28/19; Placement Time: 1109 (created via procedure documentation); Catheter Size: 18 G; Orientation: Right; Location: Foot; Site Prep: Alcohol, Chlorhexidine; Insertion Attempts: 1; Removal Date: 12/28/19; Removal Time: 1500; Removal Reason: Per order 12/28/19 1109 by Rome Maki TYPEWRITER MECHANIC 12/28/19 1500 by Maritza Ross, MARAH ETT Placement Date: 12/28/19; Placement Time: 1122 (created via procedure documentation); Mask Ventilation: 1; Technique: Video laryngoscopy; Type: NIM tube; Single Lumen Tube Size: 7 mm; Cuffed: Yes; Laryngoscope: Mario; Blade Size: 4; Location: Oral; Insertion Attempts: 1; Placement Verification: Auscultation, Capnometry; Removal Date: 12/28/19; Removal Time: 1403 12/28/19 1122 by Rome Maki CRNA 12/28/19 1403 by Rome Maki CRNA RETIRED Surgical Site 12/28/19; 1249; No ; Neck; 12/07/23; 1832; Not present on admission 12/28/19 1249 by Prem Woodruff RN 12/07/23 1832 by Ayleen Kathleen RN Closed/Suction/Open Drain 12/28/19; 1319; No; 1; Left; Neck; Bulb; 10 Fr.; 1 12/28/19 1319 by Prem Woodruff RN 12/07/23 1831 by Dioni Lozano RN documented in this [...] on file Legal Sex Male 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 No / Unsure 12/28/2019 8:18 AM CDT documented as of this encounter OR Notes * Anesthesia Postprocedure Evaluation - Emily Crawley MD - 12/28/2019 4:20 PM CDT Patient: Abrahan Gtz Procedure Summary Date: 12/28/19 Room / Location: [facility] OR POD 5 ROOM 219 / [facility] OR POD 5 Anesthesia Start: 1047 Anesthesia Stop: Procedures: THYROIDECTOMY - TOTAL (Bilateral Neck) POSSIBLE STERNOTOMY (N/A Chest) Diagnosis: Goiter (Goiter [E04.9]) Surgeon: Saqib Henry MD Responsible Provider: Elda Watts MD Anesthesia Type: general ASA Status: 2 Anesthesia Type: general Last vitals BP (!) 173/98 Pulse 65 Temp 36.2 ??C (97.2 ??F) (Temporal) Resp 12 SpO2 96% Anesthesia Post Evaluation Patient location during evaluation: PACU Patient participation: complete - patient participated Level of consciousness: arouses mental retardation nurse Pain score: 6 Pain management: satisfactory to patient Airway patency: patent Evidence of recall: no Anesthetic complications: no Cardiovascular status: hemodynamically stable Respiratory status: room air and spontaneous ventilation Hydration status: euvolemic Pt is: normothermic Nausea/Vomiting status: none Comments: Patient in good, stable condition as above. Appropriate for transfer to floor. Cosigned by Hoa Hazel MD at 12/28/2019 4:41 PM CDT * Anesthesia Procedure Notes - Tyrel Maki BSN - 12/28/2019 11:22 AM CDT Associated Order(s): Peripheral IV Catheter Peripheral IV Catheter Patient location: OR Start time: 12/28/2019 11:07 AM End time: 12/28/2019 11:09 AM Staff: Supervising provider: Portia Tanner CRNA Placed by: Other staff: RASHID Arguelles Preprocedure prep: Prep solution: alcohol and chlorhexadine PPE: gloves PIV line: Laterality: right Site: foot Catheter size: 18 g Technique: anatomical landmarks, direct visualization and palpatation Procedure details: good blood return and occlusive dressing applied Number of attempts: 1 Assessment: Events: patient tolerated procedure well with no complications * Anesthesia Procedure Notes - Tyrel Maki BSN - 12/28/2019 11:19 AM CDT Associated Order(s): Airway Airway Patient location: OR Urgency: elective Indications for airway management: anesthesia Difficult airway: no Staff: Supervising provider: Elda Watts MD Placed by: Other staff: RASHID Arguelles Emergent airway documentation: Risks and benefits discussed: yes Consent obtained: yes Consent given by: patient Airway prep: Preoxygenated: yes Patient position: sniffing Mask difficulty assessment: 1 - vent by mask Spontaneous ventilation during airway: absent Sedation level during airway: GA Final airway details: Final airway type: endotracheal airway Tube type: NIM tube ETT size: 7.0 mm Cuffed: yes Technique used for successful ETT placement: video laryngoscopy Insertion site: oral Blade type: Mario Video blade type: CMAC Blade size: 4 Cormack-Lehane (video): grade I - full view of glottis Cuff volume: 7 mL Cuff inflated with: air ETT to teeth: 24 cm Placement verified by: auscultation and CO2 detection Airway secured with: silk tape Number of attempts: 1 Planned trial extubation: yes * Anesthesia Preprocedure Evaluation - Elda Watts MD - 12/14/2019 9:08 AM INDUSTRIAL ELECTRICAL TECHNICIAN Images from the original note were not included. [facility] Preoperative Assessment and Planning Preoperative Evaluation Record Evaluation type/location: [facility] Planned procedure site: [facility] (Pod[facility] 2/3/5/[facility]) Date: 12/14/19 Anesthesia Evaluation Abrahan Gtz Jr. is a 75 y.o. male Procedure(s): THYROIDECTOMY - TOTAL POSSIBLE STERNOTOMY Pre-Op Diagnosis Codes: * Goiter [E04.9] HISTORY HPI Abrahan Gtz Jr. is a 75 y.o. male who is being evaluated prior to undergoing thyroidectomy for goiter . Past Medical History Neurological + Seizures (previous h/o in 1997 with no findings. No re-presentation of seizures since initial presentation) + Psychiatric history - depression Cardiovascular Pertinent negatives: hypertension ; CAD ; [place] ; atrial fibrillation; DVT/PE; negative for CHF and hyperlipidemia Respiratory + Asthma Dyspnea frequency: 2 days/week or less. Rescue inhaler use: > 2 days/week but not daily. Hospitalizations/ER in the last year: 0. Pertinent negatives: sleep apnea (SHARMILA); pulmonary hypertension; no prior intubation for respiratoryfailure due to asthma and non-smoker Gastrointestinal + GERD - on daily therapy. Asymptomatic. + Hiatal hernia (h/o hiatal hernia s/p Noemy) Renal / Pertinent negatives: renal disease Musculoskeletal/Pain + Osteoarthritis Endocrine / Other + Thyroid disease (goiter) Pertinent negatives: obesity (BMI >30) and rheumatological disease Functional Capacity Functional capacity: 4-6 METs Review of Systems + recent cold/flu (treated with antibiotics, notes improvement as of 3 days prior) Pertinent negatives: productive cough; SOB; fever; chest pain; pedal edema; syncope; dizziness; numbness/tingling; heartburn; nausea; diarrhea; dentures/partials; chipped/loose teeth and abdominal pain PAT Summary and Plans Initial preoperative evaluation discussed with: Nalini Singh MD Additional comments: Abrahan Gtz Jr. is a 75 y.o. male who is being evaluated prior to undergoing an intermediate cardiac risk surgery. Revised Cardiac Risk Index factors are (none) for a total RCRIof 0 out of 6. Functional capacity is 4-6 METs. Obstructive sleep apnea (SHARMILA) screening status is STOP-Bang=3 suggesting moderate risk for SHARMILA. Blood bank needs for day of procedure: T&S Pending labs/tests include: CBC BMP T&S Preoperative evaluation performed by Joe Mojica MD on 12/14/19 at 9:13 AM. Follow up note Labs reviewed and are without significant findings. CPAP process complete. Follow-up completed by: Joe Mojica MD on 12/15/19 at 8:19 AM Patient Active Problem List Diagnosis ??? Primary osteoarthritis of left knee ??? Subchondral insufficiency fracture of condyle of left femur (CMS/HCC) ??? Closed fracture of left tibial plateau [...] left knee as current injury ??? Goiter Past Medical History: Diagnosis Date ??? Acute [...] HERNIA REPAIR 1980 Hiatal Hernia repair ??? MT ABDOMEN SURGERY PROC UNLISTED Hernia Repair - (Added by TW Conv) No Known Allergies Taking? Last Dose Start Date End Date Provider docusate sodium (COLACE) 100 mg capsule 12/10/18 -- Betina Bray MD Take 1 capsule (100 mg total) by mouth 2 (two) times a day. Patient not taking: Reported on 12/27/2018 ergocalciferol (VITAMIN D) 50,000 unit capsule -- -- Historical Provider, omeprazole (PriLOSEC) 20 mg capsule 10/21/16 -- Nayan Mahajan MD take 1 capsule by oral route every day before a meal polyethylene glycol (MIRALAX) 17 gram/dose powder 12/10/18 -- Betina Bray MD Mix 1 scoop (17 g) in 8 oz of water and drink daily. Patient not taking: Reported on 12/27/2018 sildenafil, antihypertensive, (REVATIO) 20 mg tablet 11/11/18 -- Historical Provider, temazepam (RESTORIL) 15 mg capsule 01/21/18 -- Historical Provider, Ventolin HFA 90 mcg/actuation inhaler 11/11/19 -- Historical Provider, Patient not taking: Patient not taking: Patient not taking: Current Outpatient Medications: ??? docusate sodium (COLACE) 100 mg capsule ??? ergocalciferol (VITAMIN D) 50,000 unit capsule ??? omeprazole (PriLOSEC) 20 mg capsule ??? polyethylene glycol (MIRALAX) 17 gram/dose powder ??? sildenafil, antihypertensive, (REVATIO) 20 mg tablet ??? temazepam (RESTORIL) 15 mg capsule ??? Ventolin HFA 90 mcg/actuation inhaler Social History Tobacco Use Smoking Status Former Smoker ??? Types: Cigarettes ??? Start date: 1965 ??? Last attempt to quit: 1966 ??? Years since quittin.2 Smokeless Tobacco Never Used Substance and Sexual Activity Alcohol Use Yes ??? Alcohol/week: 1.0 standard drinks ??? Types: 1 Standard drinks or equivalent [...] Mallampati: II Cervical ROM: FROM TM distance: 3.5 Jaw ROM: full Cardiovascular Exam: Rate: regular Rhythm: regular Pulmonary Exam: LCTA, bilat EENT Exam: trachea midline Dental Exam: Appears intact Skin Exam: Skin is warm and dry. Abdominal exam: Abdomen is soft. Bowel sounds are present. Current state: Patient's current state is cooperative and interactive. Vitals: 12/14/19 0920 12/14/19 0923 BP: 137/88 134/83 Pulse: 74 SpO2: 97% PT: No results found for requested labs within last 720 hours. INR: No results found for requested labs within last 720 hours. APTT: No results found for requested labs within last 720 hours. Hgb A1C: No results found for requested labs within last 720 hours. CBC RBC: No results found for requested labs within last 720 hours. RDW: No results found for requested labs within last 720 hours. MCHC: No results found for requested labs within last 720 hours. MCH: No results found for requested labs within last 720 hours. MCV: No results found for requested labs within last 720 hours. Hct: No results found for requested labs within last 720 hours. Hgb: No results found for requested labs within last 720 hours. WBC: No results found for requested labs within last 720 hours. MPV: No results found for requested labs within last 720 hours. Platelets: No results found for requested labs within last 720 hours. RDW CV: No results found for requested labs within last 720 hours. RDW Sd: No results found for requested labs within last 720 hours. BMP Glucose: No results found for requested labs within last 720 hours. Calcium: No results found for requested labs within last 720 hours. Sodium: No results found for requested labs within last 720 hours. Potassium: No results found for requested labs within last 720 hours. CO2: No results found for requested labs within last 720 hours. Chloride: No results found for requested labs within last 720 hours. BUN: No results found for requested labs within last 720 hours. Creatinine: No results found for requested labs within last 720 hours. DOS Physical Exam Medical history, medications, and allergies reviewed. Attestation: I endorse the findings of the anesthesia pre-evaluation assessment dated: 12/28/2019. Airway Exam: Mallampati: II Cervical ROM: FROM TM distance: 3.5 Jaw ROM: full Cardiovascular Exam: Rate: regular Rhythm: regular Pulmonary Exam: LCTA, bilat EENT Exam: trachea midline Dental Exam: Appears intact Skin Exam: Skin is warm. Capillary refill is < 3 seconds. Turgor is normal. Abdominal Exam: Abdomen is soft. Current state: Patient's current state is cooperative. Anesthesia Plan ASA 2 My patient is approved for the Anesthesia Controlled Medication protocol when under care of a TYPEWRITER MECHANIC Planned anesthesia: General Team communication plan: oral ET tube Comments: NIM tube 7.0 ID Induction: Induction: intravenous. Postoperative Plan: Postoperative administration opioids intended. No postoperative mechanical ventilation intended. Patient's planned disposition post procedure is 23 hour admit. Informed Consent: Discussed plan with TYPEWRITER MECHANIC. Anesthesia plan and risks discussed with patient. Consent and Attending signature: I and/or my designee have discussed the anesthesia plan, benefits, possible alternatives, parental presence at time of induction (if indicated), and clinically relevant risks that may include dental injury, unintentional awareness, and/or other complications. The patient and/or parent/legal guardian understand, and agree to proceed. All questions answered. STRIAL ELECTRICAL TECHNICIAN STRIAL ELECTRICAL TECHNICIAN STRIAL ELECTRICAL TECHNICIAN documented in this encounter Plan of Treatment Upcoming Encounters Date Type Department Care Team (Latest Contact Info) Description 10/23/2024 10:00 AM INDUSTRIAL ELECTRICAL TECHNICIAN Hospital Encounter [facility] Operating Room [address] [place] [id number] [place] [id number] [place] [address] 10/23/2024 10:00 AM INDUSTRIAL ELECTRICAL TECHNICIAN - 10/23/2024 1:00 PM INDUSTRIAL ELECTRICAL TECHNICIAN Surgery [facility] Operating Room [address] [place] [address] [place] [address] [address] ARTHROPLASTY TOTAL KNEE LEFT Scheduled Procedures Name Priority Associated Diagnoses Date/Ti me ARTHROPLASTY TOTAL KNEE left knee osteoarthritis 10/23/2024 10:00 AM INDUSTRIAL ELECTRICAL TECHNICIAN ESOPHAGOGASTRODUODENOSCOPY Dysphagia, unspecified type documented as of this encounter Procedures Procedure Name Priority Date/Time Associated Diagnosis Comments MT AN PROCEDURE PLACEHOLDER Routine 12/28/2019 11:22 AM CDT MT AN PROCEDURE PLACEHOLDER Routine 12/28/2019 11:19 AM CDT MT AN ELECTIVE ENDOTRACHEAL AIRWAY Routine 12/28/2019 11:19 AM CDT documented in this encounter Results * MT AN PROCEDURE PLACEHOLDER (12/28/2019 11:22 AM CDT) Tyrel Finch BSN - 12/28/2019 11:22 AM CDT RASHID Arguelles ? 12/28/2019 11:23 AM Peripheral IV Catheter Patient location: OR Start time: 12/28/2019 11:07 AM End time: 12/28/2019 11:09 AM Staff: Supervising provider: Portia Tanner CRNA Placed by: Other staff: RASHID Arguelles Preprocedure prep: Prep solution: alcohol and chlorhexadine PPE: gloves PIV line: Laterality: right Site: foot Catheter size: 18 g Technique: anatomical landmarks, direct visualization and palpatation Procedure details: good blood return and occlusive dressing applied Number of attempts: 1 Assessment: Events: patient tolerated procedure well with no complications Elda Watts MD ANESTHESIA ORDERABLES Final Resu lt * MT AN ELECTIVE ENDOTRACHEAL AIRWAY, MT AN PROCEDURE PLACEHOLDER (12/28/2019 11:19 AM CDT) Tyrel Finch BSN - 12/28/2019 11:19 AM CDT RASHID Arguelles ? 12/28/2019 11:22 AM Airway Patient location: OR Urgency: elective Indications for airway management: anesthesia Difficult airway: no Staff: Supervising provider: Elda Watts MD Placed by: Other staff: RASHID Arguelles Emergent airway documentation: Risks and benefits discussed: yes Consent obtained: yes Consent given by: patient Airway prep: Preoxygenated: yes Patient position: sniffing Mask difficulty assessment: 1 - vent by mask Spontaneous ventilation during airway: absent Sedation level during airway: GA Final airway details: Final airway type: endotracheal airway Tube type: NIM tube ETT size: 7.0 mm Cuffed: yes Technique used for successful ETT placement: video laryngoscopy Insertion site: oral Blade type: Mario Video blade type: CMAC Blade size: 4 Cormack-Lehane (video): grade I - full view of glottis Cuff volume: 7 mL Cuff inflated with: air ETT to teeth: 24 cm Placement verified by: auscultation and CO2 detection Airway secured with: silk tape Number of attempts: 1 Planned trial extubation: yes us Elda Watts MD ANESTHESIA ORDERABLES Final Resu lt documented in this encounter Visit Diagnoses Not on filedocumented in this encounter Administered Medications Inactive Administered Medications - up to 3 most recent administrations Medication Order MAR Action Action Date Dose Rate Site ceFAZolin (ANCEF) injection intravenous, As needed, Starting on Jo 12/28/19 at 1100, Anesthesia Intra-op Given 12/28/2019 11:00 AM CDT 2,000 mg dexAMETHasone (DECADRON) 4 mg/mL injection intravenous, Administer over 2 Minutes, As needed, Starting on Jo 12/28/19 at 1214, Anesthesia Intra-op Given 12/28/2019 12:14 PM CDT 8 mg dexMEDEtomidine (PRECEDEX) 80 mcg/20 mL (4 mcg/mL) in sodium chloride 0.9% (premix) As needed, Starting on Jo 12/28/19 at 1151, Anesthesia Intra-op Given 12/28/2019 1:29 PM CDT 4 mcg Given 12/28/2019 12:15 PM CDT 8 mcg Given 12/28/2019 11:51 AM CDT 8 mcg fentaNYL (SUBLIMAZE) preservative free injection intravenous, As needed, Starting on Jo 12/28/19 at 1054, Anesthesia Intra-op Given 12/28/2019 11:20 AM CDT 50 mcg Given 12/28/2019 11:05 AM CDT 100 mcg Given 12/28/2019 10:54 AM CDT 100 mcg HYDROmorphone (DILAUDID) injection Administer over 2 Minutes, As needed, Starting on Jo 12/28/19 at 1332, Anesthesia Intra-op Given 12/28/2019 1:44 PM CDT 0.2 mg Given 12/28/2019 1:32 PM CDT 0.2 mg Lactated Ringer's (LR) infusion 30 mL/hr, intravenous, Continuous, Starting on Jo 12/28/19 at 0900, Pre-Op Rate/Dose Verify 12/28/2019 10:50 AM CDT New Bag 12/28/2019 8:42 AM CDT 30 mL/hr 30 mL/hr Lactated Ringer's (LR) infusion Continuous PRN, Starting on Jo 12/28/19 at 1109, Anesthesia Intra-op New Bag 12/28/2019 11:09 AM CDT lidocaine PF (XYLOCAINE) 10 mg/mL (1 %) preservative free injection As needed, Starting on Jo 12/28/19 at 1054, Anesthesia Intra-op Given 12/28/2019 10:54 AM CDT 80 mg ondansetron (ZOFRAN) injection intravenous, Administer over 2 Minutes, As needed, Starting on Jo 12/28/19 at 1310, Anesthesia Intra-op Given 12/28/2019 1:10 PM CDT 4 mg phenylephrine (MAGY-SYNEPHRINE) 5 mg/50 mL (100 mcg/mL) in sodium chloride 0.9% (premix) Continuous PRN, Starting on Jo 12/28/19 at 1113, Anesthesia Intra-op New Bag 12/28/2019 11:13 AM CDT 0.4 mcg/kg/min 23.4 mL/hr propofoL (DIPRIVAN) IV intravenous, As needed, Starting on Jo 12/28/19 at 1054, Anesthesia Intra-op Given 12/28/2019 1:57 PM CDT 20 mg Given 12/28/2019 12:15 PM CDT 20 mg Given 12/28/2019 11:55 AM CDT 20 mg succinylcholine (ANECTINE) injection intravenous, As needed, Starting on Jo 12/28/19 at 1055, Anesthesia Intra-op Given 12/28/2019 10:55 AM CDT 80 mg documented in this encounter Orders Medications Ordered That Te ht Not Have Been Administered Count Last Ordered Date First Ordered Date sodium chloride 0.9% infusion 1 12/28/2019 documented in this encounter Care Teams Hotel Assistant General Manager Relationship Specialty [place] [id number] [facility] [place] [address] PCP - General 11/12/16 03/11/22 documented as of this encounter
--- OUTSIDE RECORDS SUMMARY | 2024-10-11 02:02 | XMS_ITS | Encounter Summary ---
Author Organization [facility] Facility Care Team Providers Care Ton Cylinder Inspector Name Role Phone Santino Funk MD Primary Care Provider + Encounter Details Date Type Department Care Team (Latest Contact Info) Description 12/27/2018 Travel Social History Tobacco Use Types Packs/Day Years Used Date Smoking Tobacco: Former Smokeless Tobacco: Never Alcohol Use Standard Drinks/Week Comments Yes 0 (1 standard drink = 0.6 oz pur e alcohol) PHQ-2 Answer Date Recorded PHQ-2 Score 0 12/12/2018 Sex and Gender Information Value Date Recorded Sex Assigned at Not on file Legal Sex Male 3:25 PM HOME CARE ASSISTANT Gender Identity Not on file Sexual Orientation Not on file documented as of this encounter Plan of Treatment Upcoming Encounters Date Type Department Care Team (Latest Contact Info) Description 10/23/2024 10:00 AM [facility] Hospital Encounter [facility] Operating Room [address] [place] [id number] [place] [address] [address] 10/23/2024 10:00 AM HOME CARE ASSISTANT - 10/23/2024 1:00 PM [facility] Surgery [facility] Operating Room [address] [place] [address] [place] [phone] [address] ARTHROPLASTY TOTAL KNEE LEFT Scheduled Procedures Name Priority Associated Diagnoses Date/Ti me ARTHROPLASTY TOTAL KNEE left knee osteoarthritis 10/23/2024 10:00 AM HOME CARE ASSISTANT ESOPHAGOGASTRODUODENOSCOPY Dysphagia, unspecified type documented as of this encounter Visit Diagnoses Not on filedocumented in this encounter Care Teams Ton Cylinder Inspector Relationship Specialty [place] [address] [facility] [address] PCP - General 11/12/16 03/11/22 documented as of this encounter
--- OUTSIDE RECORDS SUMMARY | 2024-10-11 02:02 | XMS_ITS | Encounter Summary ---
Author Organization [facility] Healthcare Address [address] [place] [address] Care Team Providers Care Library Director Name Role Phone Santino Funk MD Primary Care Provider + Encounter Details Date Type Department Care Team (Latest Contact Info) Description 12/28/2019 6:32 AM CDT - 12/30/2019 1:37 PM CDT Hospital Encounter [facility] [address] [place] [id number] Saqib Henry MD [address] [facility] [address] [place] [address] Goiter Discharge Disposition: Discharge to home or self care Social History Tobacco Use Types Packs/Day Years Used Date Smoking Tobacco: Former Cigarettes 1 966 - 3222 Smokeless Tobacco: Never Alcohol Use Standard Drinks/Week Comments Yes 1 (1 standard drink = 0.6 oz pur e alcohol) PHQ-2 Answer Date Recorded PHQ-2 Score 0 12/12/2018 Sex and Gender Information Value Date Recorded Sex Assigned at Not on file 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 No / Unsure 12/28/2019 8:18 AM CDT documented as of this encounter Last Filed Vital Signs Vital Sign Reading Time Taken Comments Blood Pressure 172/88 12/30/2019 12:04 PM CDT Pulse 52 12/30/2019 12:04 PM CDT Temperature 36.5 ??C (97.7 ??F) 12/30/2019 12:04 PM C DT Respiratory Rate 18 12/30/2019 12:04 PM CDT Oxygen Saturation 95% 12/30/2019 12:04 PM CDT Inhaled Oxygen Concentration - - Weight 97.5 kg (215 lb) 12/28/2019 8:27 AM CDT Height 182.9 cm (6') 12/28/2019 8:27 AM CDT Body Mass Index 29.16 12/28/2019 8:27 AM CDT documented in this encounter Discharge Diagnoses Diagnosis Nontoxic multinodular goiter - NONTOXIC MULTINODULAR GOITER Hypocalcemia - HYPOCALCEMIA Unspecified asthma, uncomplicated - UNSPECIFIED ASTHMA, UNCOMPLICATED Pulmonary fibrosis, unspecified (HCC) - PULMONARY FIBROSIS, UNSPECIFIED Cataract extraction status, right eye - CATARACT EXTRACTION STATUS, RIGHT EYE Cataract extraction status, left eye - CATARACT EXTRACTION STATUS, LEFT EYE Encounter for immunization - ENCOUNTER FOR IMMUNIZATION Major depressive disorder, single episode, unspecified - MAJOR DEPRESSIVE DISORDER, SINGLE EPISODE, UNSPECIFIED Gastro-esophageal reflux disease without esophagitis - GASTRO-ESOPHAGEAL REFLUX DISEASE WITHOUT ESOPHAGITIS Unspecified osteoarthritis, unspecified site - UNSPECIFIED OSTEOARTHRITIS, UNSPECIFIED SITE Personal history of nicotine dependence - PERSONAL HISTORY OF NICOTINE DEPENDENCE Personal history of other diseases of the nervous system and sense organs - PERSONAL HISTORY OF OTHER DISEASES OF THE NERVOUS SYSTEM AND SENSE ORGANS Other correction (current) drug therapy - OTHER SIPHONER (CURRENT) DRUG THERAPY documented in this encounter Discharge Summaries * Alexx, Ruth Hogan MD - 12/30/2019 1:37 PM CDT Inpatient Discharge Summary BRIEF OVERVIEW Admitting Provider: Saqib Henry MD Discharge Provider: No att. providers found Primary Care Physician at Discharge: Santino Funk MD [phone] Admission Date: 12/28/2019 Discharge Date: 12/30/2019 Admission Location: [facility] Problems/Diagnoses: Principal Problem: Goiter Resolved Problems: No resolved hospital problems. DETAILS OF HOSPITAL STAY Presenting Problem/History of Present Illness: Mr. Gtz is a 75 y.o. year old male with past history of asthma, depression, cataracts, and seizures who presents in consultation for thyroid nodules bilaterally. Per report the patient was doing well and being evaluated by his primary care physician Dr. Mcgarry who appreciated bilateral thyroid nodules on a CT scan performed for his pulmonary fibrosis. It was noted that he had an enlarged thyroid with hypodense min nodules measuring 4 x 3 cm on the left that were extending substernally. An ultrasound subsequently revealed complex nodules in both thyroid lobes with the left lobe measuring almost 9 cm in size with the largest nodule 4 cm. He was then referred here and FNA was performed. He feels entirely asymptomatic from these findings and denies any changes in his voice, and differences in his swallow. He reports that he has had no changes in his hair, skin, nails. No fevers, chills, night sweats or other complaints. He denies any weight gain or weight loss. My impression is that Mr. 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 I alsoreviewed that in most cases this is likely a benign process. However the possibility of malignancy would be difficult to rule out definitively short of surgical measures. I reviewed options at this point, which could involve either surgery, which in my opinion would involve total thyroidectomy versus an observational approach with medical management. The latter option would involve further evaluation and serial follow-up with endocrinology which was offered. Given the large size of his gland, it is doubtful however, that medical measures would substantially improve this. Surgery, I think, is certainly a reasonable option, both from a diagnostic and therapeutic perspective. I did explain that with surgery, that although it is hoped that his local symptoms will improve, that this is not guaranteed and that it is possible that he may have persistent symptoms after surgery. Given the substernal location, I also discussed that possibility of median sternotomy, although in general the likelihood of need of this is very very low. Hospital Course: The patient went to the OR on 12/27 for total thyroidectomy. After a period of monitoring in the PACU, he was admitted to the floor for observation. The patient's diet was advanced to a regular diet. His STACIE drains were monitored. His PTH, calcium levels, vitamin D, and magnesium were monitored and repleted as indicated. He was started on daily vitamin D and calcium. On post-operative day one his calcium and PTH were stable and lab monitoring was stopped. Home medications were restarted as indicated. By post operative day two he was tolerating an oral diet, pain was controlled with oral medications, and no significant events were noted. He was deemed clinically stable and discharged home with hisJP drain in place. Active Issues Requiring Follow-up: - STACIE drain removal - F/u surgical pathology Test Results Pending at Discharge: Pending Labs Order Current Status Surgical pathology In process Operative Procedures Performed: Procedure(s): THYROIDECTOMY - TOTAL POSSIBLE STERNOTOMY Other Procedures: None Pertinent Test Results: None Discharge Details Physical Exam at Discharge: Discharge Condition: good Pulse: 52 Resp: 18 BP: (!) 172/88 Temp: 36.5 ??C (97.7 ??F) Weight: 97.5 kg (215 lb) Pertinent Exam Findings at Discharge: Please see progress note from day of discharge Discharge Disposition: Discharge to home or self care Code Status at Discharge: Full Discharge Instructions: ENT Post Operative Discharge Instructions When to call your doctor: * If you feel any numbness or tingling around your lips or fingertips your calcium may be low. Thisis very serious. Take 4 TUMS right away and call your doctor???s office. If you can???t reach your doctor???s office, go immediately to the EMERGENCY ROOM. * You have a fever of more than 101.5. * You have redness or swelling around your incision. * The pain in your incision starts hurting very badly. * Your incision starts draining. * You notice a foul odor from surgical area. * You have pus, bleeding, or drainage around your incision site. * Your incision is opening. * You notice a foul odor. * You have persistent nausea and/or vomiting, * You feel dizzy or like you may pass out. * You have a hard time breathing. * You have any questions or concerns. Procedure: Total thyroidectomy Diet: You may return to your pre-operative diet Activity: Do not drive, operative heavy machinery, or make important legal decisions for the next 24 hours or while taking narcotic pain medication. Light activity for the next 24 hours. Resume normal activity afterwards as tolerated. Wound Care: You should attempt to ambulate as early as possible after the procedure since lying in bed can worsen the swelling. When lying down, it may be helpful to elevate the head of the bed for at least one week. The swelling will subside slowly each day. You may also experience alterations in your sensation your neck, such as numbness or tingling. This is due to the disruption of nerves during the procedure. This is temporary and should resolve over the next few weeks. You may shower tomorrow - do not scrub your incision, dab dry only. Please take extra care to avoid sun exposure until the wounds are healed and then protect the incision sites with sunscreen as sun exposure can interfere with the healing process. Sun exposure retards healing and causes discoloration of the scar that may never disappear. Drains: Your drain should stay in until it is removed by your surgeon. Empty and record the output every 8 hours. Please call Carolyne Prater at the [facility] next week to get an appointment for drain removal. The number to call is [phone]. The drain must be putting out under 30 ml of fluid in a 24 hour period to be removed. Medications - Pain: In addition to a prescription for a narcotic pain medication, you may use Tylenol?? for mild discomfort. f Tylenol?? does not adequately control your pain; you may utilize the prescription pain medication. You should not drive while taking narcotic pain medication. - Calcium: This surgery may cause temporary dips in your calcium. To help with that, you have been prescribed a supply of calcium supplementation. Please take this three times a day. Again, if you feel any numbness or tingling around your lips or fingertips your calcium may be low. This is very serious. Take 4 TUMS right away and call your doctor???s office. If you can???t reach your doctor???s office, go immediately to the EMERGENCY ROOM. - Thyroid hormone: You have been prescribed thyroid supplementation now that your thyroid gland is gone. Please take it daily. We recommend you follow-up with your primary care provider regarding this. Follow up: You are currently scheduled to follow-up with Dr. Henry on 01/07 at 10:15am. Please call [phone] to confirm your follow up appointment. Please follow-up with your primary care provider for management of your thyroid supplementation. Questions: If you have any concerns or questions, or develop worrisome symptoms such as worsening pain or swelling, bleeding, fever, or vomiting, call your doctor. Use [phone] if you are calling during weekday business hours (8am-5pm Wednesday through Wednesday), otherwise call [phone] and ask for the ENT resident bond runner. Discharge Medications: Current Medications TAKE these medications acetaminophen 500 mg capsule Take 2 capsules (1,000 mg total) by mouth every 6 (six) hours For: pain aspirin-sodium bicarbonate-citric acid 324 mg tablet, effervescent Take 325 mg by mouth daily as needed (upset stomach) Commonly known as: ELIUD-SELTZER bismuth subsalicylate 17.5 mg/mL suspension Take 15 mL by mouth every 6 (six) hours as needed for indigestion Commonly known as: PEPTO BISMOL calcium carbonate 1,250 MG (500 mg of elemental calcium) tablet Take 1 tablet (1,250 mg total) by mouth 3 (three) times a day Commonly known as: OS-KAREN cholecalciferol 2000 unit capsule Take 1 capsule (2,000 Units total) by mouth daily Commonly known as: VITAMIN D-3 docusate sodium 100 mg capsule Take 1 capsule (100 mg total) by mouth 2 (two) times a day. For: constipation Commonly known as: COLACE levothyroxine 150 mcg tablet Take 1 tablet (150 mcg total) by mouth linux network administrator before breakfast Commonly known as: SYNTHROID MUCINEX D MAXIMUM STRENGTH ORAL Take 15 mL by mouth daily as needed For: cough omeprazole 20 mg capsule take 1 capsule by oral route every day before a meal Commonly known as: PriLOSEC oxyCODONE 5 mg immediate release tablet Take 1 tablet (5 mg total) by mouth every 4 (four) hours as needed for pain For: pain Commonly known as: ROXICODONE polyethylene glycol 17 gram/dose powder Mix 1 scoop (17 g) in 8 oz of water and drink daily. For: constipation Commonly known as: MIRALAX sildenafiL (pulm.hypertension) 20 mg tablet Take 20 mg by mouth daily as needed For: erectile dysfunction Commonly known as: REVATIO temazepam 15 mg capsule Take 15 mg by mouth nightly as needed for sleep For: difficulty sleeping Commonly known as: RESTORIL UNABLE TO FIND Take 1 each by mouth daily as needed Z Quil cough syrup Ventolin HFA 90 mcg/actuation inhaler Inhale 2 puffs every 4 (four) hours as needed for wheezing Generic drug: albuterol HFA Outpatient Follow-Up: Future Appointments Date Time Provider Department Center 01/08/2020 10:15 AM Saqib Henry MD [facility] [place] Contact Information for Follow-ups Santino Funk MD Specialty: Internal Medicine, Geriatric Medicine Relationship: PCP - General [address] [facility] [address] [facility] [address] Next Steps: Follow up Cosigned by Saqib Henry MD at 01/01/2020 9:35 AM CDT documented in this encounter Discharge Instructions * Discharge Instructions* Ruth Coffey MD - 12/30/2019 11:21 AM CDT ENT Post Operative Discharge Instructions When to call your doctor: * If you feel any numbness or tingling around your lips or fingertips your calcium may be low. Thisis very serious. Take 4 TUMS right away and call your doctor???s office. If you can???t reach your doctor???s office, go immediately to the EMERGENCY ROOM. * You have a fever of more than 101.5. * You have redness or swelling around your incision. * The pain in your incision starts hurting very badly. * Your incision starts draining. * You notice a foul odor from surgical area. * You have pus, bleeding, or drainage around your incision site. * Your incision is opening. * You notice a foul odor. * You have persistent nausea and/or vomiting, * You feel dizzy or like you may pass out. * You have a hard time breathing. * You have any questions or concerns. Procedure: Total thyroidectomy Diet: You may return to your pre-operative diet Activity: Do not drive, operative heavy machinery, or make important legal decisions for the next 24 hours or while taking narcotic pain medication. Light activity for the next 24 hours. Resume normal activity afterwards as tolerated. Wound Care: You should attempt to ambulate as early as possible after the procedure since lying in bed can worsen the swelling. When lying down, it may be helpful to elevate the head of the bed for at least one week. The swelling will subside slowly each day. You may also experience alterations in your sensation your neck, such as numbness or tingling. This is due to the disruption of nerves during the procedure. This is temporary and should resolve over the next few weeks. You may shower tomorrow - do not scrub your incision, dab dry only. Please take extra care to avoid sun exposure until the wounds are healed and then protect the incision sites with sunscreen as sun exposure can interfere with the healing process. Sun exposure retards healing and causes discoloration of the scar that may never disappear. Drains: Your drain should stay in until it is removed by your surgeon. Empty and record the output every 8 hours. Please call Carolyne Prater at the [facility] next week to get an appointment for drain removal. The number to call is [phone]. The drain must be putting out under 30 ml of fluid in a 24 hour period to be removed. Medications - Pain: In addition to a prescription for a narcotic pain medication, you may use Tylenol?? for mild discomfort. f Tylenol?? does not adequately control your pain; you may utilize the prescription pain medication. You should not drive while taking narcotic pain medication. - Calcium: This surgery may cause temporary dips in your calcium. To help with that, you have been prescribed a supply of calcium supplementation. Please take this three times a day. Again, if you feel any numbness or tingling around your lips or fingertips your calcium may be low. This is very serious. Take 4 TUMS right away and call your doctor???s office. If you can???t reach your doctor???s office, go immediately to the EMERGENCY ROOM. - Thyroid hormone: You have been prescribed thyroid supplementation now that your thyroid gland is gone. Please take it daily. We recommend you follow-up with your primary care provider regarding this. Follow up: You are currently scheduled to follow-up with Dr. Henry on 01/07 at 10:15am. Please call [phone] to confirm your follow up appointment. Please follow-up with your primary care provider for management of your thyroid supplementation. Questions: If you have any concerns or questions, or develop worrisome symptoms such as worsening pain or swelling, bleeding, fever, or vomiting, call your doctor. Use [phone] if you are calling during weekday business hours (8am-5pm Wednesday through Wednesday), otherwise call [phone] and ask for the ENT resident bond runner. documented in this encounter Medications at Time [...] 1 tablet (150 mcg total) by mouth linux network administrator before breakfast 60 tablet 1 12/31/2019 0 [...] 11/11/2019 1 documented as of this encounter Ordered Prescriptions Prescription Sig Dispense Quantity Refills Last Filled Start Date End Date cholecalciferol (VITAMIN D-3) 2000 unit capsule Take 1 capsule (2,000 Units total) by mouth daily 30 capsule 3 12/31/2019 oxyCODONE (ROXICODONE) 5 mg immediate release tabletIndications: Pain Take 1 tablet (5 mg total) by mouth every 4 (four) hours as needed for pain 20 tablet 12/30/2019 1 levothyroxine (SYNTHROID) 150 mcg tablet Take 1 tablet (150 mcg total) by mouth linux network administrator before breakfast 60 tablet 1 12/31/2019 0 calcium carbonate (OS-KAREN) 1,250 MG (500 mg of elemental calcium) tablet Take 1 tablet (1,250 mg total) by mouth 3 (three) times a day 90 tablet 1 12/30/2019 1 acetaminophen 500 mg capsuleIndications :Pain Take 2 capsules (1,000 mg total) by mouth every 6 (six) hours 30 tablet 1 12/30/2019 2 documented in this encounter Discharge Disposition Disposition Code Departure Means Destination Discharge to home or self care documented in this encounter Progress Notes * Ruth Coffey MD - 12/30/2019 9:38 AM CDT Otolaryngology - Head & Neck Surgery Daily Progress Subjective Chief complaint: Thyroid goiter Interval History: No events overnight. Kept last night for high STACIE output. Doing well this AM. Objective VITALS, 24HR MIN/MAX: Vitals: 12/30/19 0735 BP: 147/80 Pulse: 57 Resp: 16 Temp: 36.8 ??C (98.2 ??F) SpO2: 97% I&O No intake/output data recorded./I/O last 2 completed shifts: In: 1344.2 [P.O.:480; I.V.:774.2; IV Piggyback:90] Out: 282 [Urine:240; Drains:42] Physical Exam: General: NAD, breathing comfortably, tired Head and Face: Normocephalic, atraumatic. Neurologic: AAOx3, follows commands. Face symmetric. Ears: Normal external appearance. No drainage noted. Nose: No bleeding or drainage from external nares Oral Cavity/Oropharynx: No bleeding in oropharynx Neck: Neck soft, flat, trachea midline. Stacie x1 ss Incisions: c/d/i Pulmonary: Normal quiet breathing. No respiratory distress, stridor, or wheeze. Lab/Radiology/Diagnostic Review: LABS 24 HOURS: Laboratory review: Laboratory review: Lab results in the last 24 hours: No results found for this or any previous visit (from the past 24 hour(s)). Assessment/Plan Principal Problem: Goiter 75 yo M with hx of goiter s/p total thyroidectomy. #Post-op - pain control - Regular diet - OOB for DVT ppx #Hypocalcemia - PTH 58 post-op, Mg 1.8, Vit D 17 - Continue Oscal 1250 TID, Vit D BID #Hypothyroidism - Start synthroid - Coordinate PCP follow-up Ruth Coffey MD Otolaryngology, PGY-1 Weekends/afterhours: ENT Consult Cosigned by Saqib Henry MD at 01/04/2020 4:54 PM CDT * Vanessa Miguel RN - 12/29/2019 1:44 PM CDT 12/29/19 1344 Discharge Summary Chart reviewed For Medical Necessity Does patient have a planned readmission to hospital planned? No Discharge Disposition Home Equipment/Provider Needs No Home Needs Identified Discharge Additional Assistance Does the patient need discharge transport arranged? No Post Discharge Care Provider Post Discharge Care Plan Next level of care provider has access to complete EMR Pt to discharge home today with no needs. Patient has family for home support and transportation. Patient to have meds filled by mobile pharmacy. ENT to follow patient post-discharge. Nurse to instruct on d/c orders. * Vanessa Miguel RN - 12/29/2019 11:15 AM CDT 12/29/19 1114 Information Information Obtained From Patient Referral Data Referral Source Youth Probation Officer Referral Reason Discharge Planning Prior to Admission Primary Caregiver Self Support System Spouse/Significant Other Support system contact info (name, phone, availablity) Alon Gtz SPOUSE [phone] Home Care Services No Durable Medical Equipment None Living Arrangements Spouse/significant other Type of Residence Private residence Steps in home? Yes, Outside of home Number of steps outside: 1 steps Financial Resource Payor Source Medicare Potential Discharge Needs Anticipated discharge level of care Private residence Pt/Family agrees with Anticipated Level of Care Yes Dialysis No Behavioral Health Services No Plan of care: Patient admitted for the following procedures- THYROIDECTOMY - TOTAL (Bilateral) POSSIBLE STERNOTOMY (N/A) Additional Information: Address and patient phone number verified with patient face sheet. Insurance verified: Medicare Admission source: Direct admit from home Home Pharmacy verified: [facility] PCP verified: Dr Santino Mcgarry Problem: Patient to return to safe home environment with family/friends for home support and transportation. Through the course of our work I determined that Alon possesses the skill and ability to provide and monitor the care of the patient when he or she returns home. Alon has the capacity to provide/monitor/arrange for the care of the patient. Finally, we determined that Alon has the knowledge ofavailable resources and that combining them with their existing resources will suffice to sustain and care for the patient when he or she returns home. The treatment team is aware of this information. All are in agreement with the aftercare plan. Goal: CM to follow for planning and referrals as needed. [phone]. Spouse to provide ride home * Ger Hdz Jr., MD - 12/29/2019 7:25 AM CDT Otolaryngology - Head & Neck Surgery Daily Progress Subjective Chief complaint: Thyroid goiter Interval History: No events overnight. STACIE with 121 ml of output since surgery. Objective VITALS, 24HR MIN/MAX: Vitals: 12/29/19 0420 BP: 164/86 Pulse: 57 Resp: 18 Temp: 36.7 ??C (98.1 ??F) SpO2: 92% I&O I/O this shift: In: 864.2 [I.V.:774.2; IV Piggyback:90] Out: 240 [Urine:240]/I/O last 2 completed shifts: In: 2024 [I.V.:2024] Out: 1910 [Urine:1640; Drains:121; Blood:150] Physical Exam: General: NAD, breathing comfortably, tired Head and Face: Normocephalic, atraumatic. Neurologic: AAOx3, follows commands. Face symmetric. Ears: Normal external appearance. No drainage noted. Nose: No bleeding or drainage from external nares Oral Cavity/Oropharynx: No bleeding in oropharynx Neck: Neck soft, flat, trachea midline. Stacie x1 ss Incisions: c/d/i Pulmonary: Normal quiet breathing. No respiratory distress, stridor, or wheeze. Lab/Radiology/Diagnostic Review: LABS 24 HOURS: Laboratory review: Laboratory review: Lab results in the last 24 hours: Recent Results (from the past 24 hour(s)) Check Sample Collection Time: 12/28/19 8:38 AM Result Value Ref Range ABO Rh O Negative PTH Collection Time: 12/28/19 2:18 PM Result Value Ref Range PTH 58 15 - 65 pg/mL Magnesium Collection Time: 12/28/19 2:20 PM Result Value Ref Range Magnesium 1.8 1.4 - 2.5 mg/dL Renal function panel Collection Time: 12/28/19 2:20 PM Result Value Ref Range Sodium 142 135 - 145 mmol/L Potassium, pl 4.3 3.3 - 4.9 mmol/L Chloride 107 97 - 110 mmol/L CO2 28 22 - 32 mmol/L Anion gap 7 2 - 15 mmol/L BUN 14 8 - 25 mg/dL Creatinine 1.17 0.80 - 1.30 mg/dL Glucose 113 70 - 199 mg/dL Calcium 8.8 8.5 - 10.3 mg/dL Phosphorus, pl 2.5 2.3 - 4.5 mg/dL Albumin 3.8 3.5 - 5.0 g/dL Vitamin D 25 hydroxy Collection Time: 12/28/19 2:20 PM Result Value Ref Range Vitamin D, 25-hydroxy 17 (L) 30 - 80 ng/mL Renal function panel Collection Time: 12/28/19 8:36 PM Result Value Ref Range Sodium 137 135 - 145 mmol/L Potassium, pl 4.1 3.3 - 4.9 mmol/L Chloride 105 97 - 110 mmol/L CO2 26 22 - 32 mmol/L Anion gap 6 2 - 15 mmol/L BUN 15 8 - 25 mg/dL Creatinine 1.18 0.80 - 1.30 mg/dL Glucose 202 (H) 70 - 199 mg/dL Calcium 8.2 (L) 8.5 - 10.3 mg/dL Phosphorus, pl 2.0 (L) 2.3 - 4.5 mg/dL Albumin 3.5 3.5 - 5.0 g/dL Renal function panel Collection Time: 12/29/19 2:38 AM Result Value Ref Range Sodium 139 135 - 145 mmol/L Potassium, pl 4.5 3.3 - 4.9 mmol/L Chloride 105 97 - 110 mmol/L CO2 25 22 - 32 mmol/L Anion gap 9 2 - 15 mmol/L BUN 15 8 - 25 mg/dL Creatinine 1.21 0.80 - 1.30 mg/dL Glucose 164 70 - 199 mg/dL Calcium 8.5 8.5 - 10.3 mg/dL Phosphorus, pl 2.3 2.3 - 4.5 mg/dL Albumin 3.6 3.5 - 5.0 g/dL Assessment/Plan Principal Problem: Goiter 75 yo M with hx of goiter s/p total thyroidectomy. #Post-op - pain control - ADAT - OOB for DVT ppx - d/c mIVF #Hypocalcemia - PTH 58 post-op, Mg 1.8, Vit D 17 - Continue Oscal 1250 TID, Vit D BID #Hypothyroidism - Start synthroid - Coordinate PCP follow-up Akhil Hdz, PGY-2 Otolaryngology-Head & Neck Surgery Weekends/afterhours: ENT Consult Akhil Hdz, PGY2 Otolaryngology Resident Weekends/afterhours: ENT Consult Cosigned by Saqib Henry MD at 12/29/2019 7:54 AM CDT * Last, Ruth Hogan MD - 12/28/2019 7:33 PM CDT Otolaryngology Head and Neck Surgery Postoperative Note 75 y.o. male with hx of goiter s/p total thyroidectomy on 12/27. Subjective: Pain well controlled. Denies nausea/vomiting, SOB. Vitals: 12/28/19 1715 12/28/19 1730 12/28/19 1800 12/28/19 1830 BP: (!) 171/97 (!) 178/90 162/88 (!) 175/94 BP Location: Left arm Left arm Left arm Left arm Patient Position: Lying Lying Lying Lying Pulse: 63 66 65 65 Resp: 16 16 16 16 Temp: 36.8 ??C (98.2 ??F) 37.1 ??C (98.8 ??F) 36.8 ??C (98.2 ??F) 37.2 ??C (99 ??F) TempSrc: Oral Oral Oral Oral SpO2: 98% 98% 97% 98% Weight: Height: General: NAD, breathing comfortably, tired Head and Face: Normocephalic, atraumatic. Neurologic: AAOx3, follows commands. Face symmetric. Ears: Normal external appearance. No drainage noted. Nose: No bleeding or drainage from external nares Oral Cavity/Oropharynx: No bleeding in oropharynx Neck: Neck soft, flat, trachea midline. Stacie x1 ss Incisions: c/d/i Pulmonary: Normal quiet breathing. No respiratory distress, stridor, or wheeze. Assessment/Plan: POD0 s/p total thyroidectomy on 12/27.. - Pain control: scheduled tylenol, oxy for breakthrough pain - ADAT - Elevate HOB - Oscal 1250 TID - VitD 2000U daily - Continue q6h RFP Ruth Coffey MD Otolaryngology, PGY-1 Weekends/afterhours: ENT Consult documented in this encounter H&P Notes * Saqib Henry MD - 12/28/2019 9:06 AM CDT I have reviewed the H&P, examined the patient, and endorse the findings as written. Plan of Care : Based on the above findings, I consider Gunjan Gtz to be an acceptable risk for : Procedure(s): THYROIDECTOMY - TOTAL POSSIBLE STERNOTOMY Source Note - Saqib Henry MD - 12/04/2019 2:30 PM INK GRINDER [facility] [employer] [facility] Department of Otolaryngology Division of Head and Neck Surgery 12/04/2019 Gunjan Gtz 1944 [id number] Referred by: Dr. Santino Mcgarry Chief Complaint: Thyroid nodules HPI: Mr. Gtz is a 75 y.o. year old male with past history of asthma, depression, cataracts, and seizures who presents in consultation for thyroid nodules bilaterally. Per report the patient was doing well and being evaluated by his primary care physician Dr. Mcgarry who appreciated bilateral thyroid nodules on a CT scan performed for his pulmonary fibrosis. It was noted that he had an enlarged thyroid with hypodense min nodules measuring 4 x 3 cm on the left that were extending substernally. An ultrasound subsequently revealed complex nodules in both thyroid lobes with the left lobe measuring almost 9 cm in size with the largest nodule 4 cm. He was then referred here and FNA was performed.He feels entirely asymptomatic from these findings and denies any changes in his voice, and differences in his swallow. He reports that he has had no changes in his hair, skin, nails. No fevers, chills, night sweats or other complaints. He denies any weight gain or weight loss. PAST MEDICAL HISTORY: Past Medical History: Diagnosis [...] HERNIA REPAIR 1980 Hiatal Hernia repair ??? NH ABDOMEN SURGERY PROC UNLISTED Hernia Repair - (Added by TW Conv) SOCIAL HISTORY: Social History Socioeconomic History ??? [...] Tobacco Use ??? Smoking status: Former Smoker ??? Smokeless tobacco: Never Used Substance and Sexual Activity ??? Alcohol use: Yes ??? Drug use: No ??? Sexual activity: Not on file Lifestyle ??? Physical activity Days per week: Not on file Minutes per session: Not on file ??? Stress: Not on file Relationships ??? Social connections Talks on phone: Not on file Gets together: Not on file Attends restoration service: Not on file Active member of [...] Consumes alcohol : (Added by TW [employer]) FAMILY HISTORY: Family History Problem Relation [...] Outpatient Medications Medication Sig Dispense Refill ??? amoxicillin-clavulanate (AUGMENTIN) 875-125 mg per tablet TK 1 T PO BID TAT ??? ciprofloxacin (CIPRO) 500 mg tablet TK 1 T PO BID 0 ??? docusate sodium (COLACE) 100 mg capsule Take 1 capsule (100 mg total) by mouth 2 (two) times a day. (Patient not taking: Reported on 12/27/2018) 30 capsule 0 ??? doxycycline 100 mg tablet TK 1 T PO BID ??? ergocalciferol (VITAMIN D) 50,000 unit capsule Take 50,000 Units by mouth once a week. ??? HYDROcodone-acetaminophen (NORCO) 7.5-325 mg per tablet TK 1 T PO Q 6 H PRN 0 ??? levoFLOXacin (LEVAQUIN) 500 mg tablet TK 1 T PO ONCE A DAY ??? meloxicam (MOBIC) 15 mg tablet Take 1 tablet by mouth daily. ??? methylPREDNISolone (MEDROL, AILIN,) 4 mg Dosepack Take 1 tablet (4 mg total) by mouth daily. Takeas directed on package (Patient not taking: Reported on 12/27/2018) 1 packet 0 ??? omeprazole (PriLOSEC) 20 mg capsule take 1 capsule by oral route every day before a meal 0 0 ??? ondansetron ODT (ZOFRAN-ODT) 4 mg disintegrating tablet Dissolve 1 tablet for mild to moderate nausea or vomiting or 2 tablets for severe nausea or vomiting oral twice a day as needed. (Patient not taking: Reported on 12/27/2018) 20 tablet 0 ??? oxyCODONE-acetaminophen (PERCOCET) 7.5-325 mg per tablet Take 1-2 tablets every 4 hours as needed for pain (Patient not taking: Reported on 12/27/2018) 60 tablet 0 ??? polyethylene glycol (MIRALAX) 17 gram/dose powder Mix 1 scoop (17 g) in 8 oz of water and drinkdaily. (Patient not taking: Reported on 12/27/2018) 85 g 0 ??? predniSONE (DELTASONE) 20 mg tablet ??? sildenafil, antihypertensive, (REVATIO) 20 mg tablet Take 20 mg by mouth daily. 5 ??? temazepam (RESTORIL) 15 mg capsule Take 15 mg by mouth nightly as needed. ??? Ventolin HFA 90 mcg/actuation inhaler INHALE 2 PUFFS BY MOUTH EVERY 4 HOURS NEEDED No current facility-administered medications for this visit. ALLERGIES: Patient has no known allergies. IMMUNIZATIONS: There is no immunization history on file for this patient. REVIEW OF SYSTEMS: The patient-completed Review of [...] or induration. Neck Trachea: Midline trachea. Thyroid: Several bilateral nodules appeciated with enlarged left substernal goiter. Lymphatics: No lymphadenopathy. FOE Procedure: Flexible fiberoptic nasopharyngoscopy/laryngoscopy (Scope): Indications: Need for detailed exam, hyperactive gag reflex, inadequate mirror visualization. Surgeon: Saqib Henry MD PhD Procedure note/findings: After informed discussion of the risks, benefits, and alternatives fiberoptic nasopharyngoscopy and laryngoscopy was recommended for above indications, and the patient consented to this. Nasal cavities were topically anesthetized and decongested with 4% lidocaine solution mixed with Afrin after which a flexible scope was easily advanced without difficulty into the left and right nasal cavities as well as into the nasopharynx. Nasal cavities were intact without gross mass or lesion. Nasopharynx, similarly, revealed no mass lesion or granularity. There was no ulceration. There was no gross asymmetry. Fossa of Rosenmueller was intact bilaterally. The eustachian tube orifices were intact bilaterally and patent. Posterior and lateral nasopharyngeal posey were intact and symmetric without ulceration, mass, or granularity. Scope was now advanced distally. Visible oropharynx including lateral posey and tongue base was clear without lesion. Larynx and hypopharynx were examined. Larynx was intact with normal true vocal cord mobility bilaterally. No discrete masses or lesions. Hypopharynx was clear without asymmetry. Airway was patent. The scope was then withdrawn and removed. He tolerated this well without complications. DATA: Lab Reports: N/A Pathology Reports: FNA 11/27/19 FINAL DIAGNOSIS A. ??Thyroid, left inferior lobe, ultrasound-guided fine needle aspiration: ? 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 I alsoreviewed that in most cases this is likely a benign process. However the possibility of malignancy would be difficult to rule out definitively short of surgical measures. I reviewed options at this point, which could involve either surgery, which in my opinion would involve total thyroidectomy versus an observational approach with medical management. The latter option would involve further evaluation and serial follow-up with endocrinology which was offered. Given the large size of his gland, it is doubtful however, that medical measures would substantially improve this. Surgery, I think, is certainly a reasonable option, both from a diagnostic and therapeutic perspective. I did explain that with surgery, that although it is hoped that his local symptoms will improve, that this is not guaranteed and that it is possible that he may have persistent symptoms after surgery. Given the substernal location, I also discussed that possibility of median sternotomy, although in general the likelihood of need of this is very very low. Risks and complications, possible outcomes relating to surgery were reviewed, including but not limited to bleeding, infection, risk of recurrence in the future, possible need for further treatment in the future including additional surgery or radioactive iodine therapy, potential for injury to therecurrent or superior laryngeal nerve resulting in voice change such as hoarseness or change in pitch, rare complication of bilateral vocal cord paralysis, which could result in airway problems and need for tracheostomy, risk of postoperative hypoparathyroidism, which could be temporary or permanent, risk of scar formation/cosmetic deformity, the likely need for permanent postoperative thyroid hormone replacement therapy as well as general risks of the procedure including heart attack, stroke and . Risks relating to possible sternotomy was reviewed as well as well. I discussed that surgery does not guarantee outcome neither from an oncologic nor functional nor cosmetic perspective, and Mr. Gtz indicated understanding of that. I did also discuss with him the anticipated location andthe extent of surgical scar that would result in that the size of the surgical scar depends on, in large part, due to the size of his gland and thus vary from patient to patient, and he would need toaccept that. After we reviewed the various options, Mr. Gtz indicated that he does wish to proceed with surgery as part of his overall management, including total thyroidectomy, which I think is certainly reasonable.We will hence proceed with scheduling surgery in the near future and obtain appropriate preop testing and evaluation. I do think Mr. Gtz has a good understanding of the issues involved and have answered his questions. - IPAP - surgery substernal total thyroidectomy Saqib Henry MD PhD [employer] Pow[employer] Blender Attending, Head and Neck Surgery Department of Otolaryngology [facility] [phone] (Clinical nurse Jacquie Hensley RN) Pager [phone] GRINDER documented in this encounter Miscellaneous Notes * Plan of Care - Libby Navarrete RN - 12/30/2019 8:45 AM CDT Problem: Health Behavior: Goal: Understanding of discharge [...] Pain level will decrease Outcome: Progressing Problem: Activity: Goal: Mobility will improve Outcome: Progressing Problem: Lack of Knowledge: Goal: Understanding of ways to prevent future skin breakdown will improve Outcome: Progressing Goal: Ability to identify appropriate dietary choices will improve Outcome: Progressing Problem: Nutritional: Goal: Dietary intake will improve Outcome: Progressing Goal: Ability to maintain a balanced intake and output will improve Outcome: Progressing Problem: Skin Integrity: Goal: Risk for impaired skin integrity will decrease Outcome: Progressing Goal: Ability to demonstrate warm and dry skin will improve Outcome: Progressing Goal: Circulation will improve to fullest extent possible Outcome: Progressing Goals: Clinical Goals for the Shift: safety, swallowing precautions, pain control, Summary: * Plan of Sariah - Sigrid Barreto RN - 12/30/2019 5:09 AM CDT Goals: Clinical Goals for the Shift: safety, swallowing precautions, pain control, Summary: Problem: Health Behavior: Goal: Understanding of discharge [...] Pain level will decrease Outcome: Progressing Problem: Activity: Goal: Mobility will improve Outcome: Progressing Problem: Lack of Knowledge: Goal: Understanding of ways to prevent future skin breakdown will improve Outcome: Progressing Goal: Ability to identify appropriate dietary choices will improve Outcome: Progressing Problem: Nutritional: Goal: Dietary intake will improve Outcome: Progressing Goal: Ability to maintain a balanced intake and output will improve Outcome: Progressing Problem: Skin Integrity: Goal: Risk for impaired skin integrity will decrease Outcome: Progressing Goal: Ability to demonstrate warm and dry skin will improve Outcome: Progressing Goal: Circulation will improve to fullest extent possible Outcome: Progressing * Plan of Care - Moreno Milligan RN - 12/29/2019 7:45 AM CDT Problem: Health Behavior: Goal: Understanding of discharge needs will improve Outcome: Progressing Goals: Clinical Goals for the Shift: safety, swallowing precautions, pain control, Summary: * Plan of Care - Sigrid Barreto RN - 12/29/2019 4:49 AM CDT Goals: Clinical Goals for the Shift: safety, swallowing precautions, pain control, Summary: Problem: Health Behavior: Goal: Understanding of discharge [...] Pain level will decrease Outcome: Progressing Problem: Activity: Goal: Mobility will improve Outcome: Progressing Problem: Lack of Knowledge: Goal: Understanding of ways to prevent future skin breakdown will improve Outcome: Progressing Goal: Ability to identify appropriate dietary choices will improve Outcome: Progressing Problem: Nutritional: Goal: Dietary intake will improve Outcome: Progressing Goal: Ability to maintain a balanced intake and output will improve Outcome: Progressing Problem: Skin Integrity: Goal: Risk for impaired skin integrity will decrease Outcome: Progressing Goal: Ability to demonstrate warm and dry skin will improve Outcome: Progressing Goal: Circulation will improve to fullest extent possible Outcome: Progressing * Plan of Sariah - Uriel Mar RN - 12/28/2019 6:23 PM CDT Goals: Problem: Health Behavior: Goal: Understanding of [...] Pain level will decrease Outcome: Progressing Problem: Activity: Goal: Mobility will improve Outcome: Progressing Problem: Lack of Knowledge: Goal: Understanding of ways to prevent future skin breakdown will improve Outcome: Progressing Goal: Ability to identify appropriate dietary choices will improve Outcome: Progressing Problem: Nutritional: Goal: Dietary intake will improve Outcome: Progressing Goal: Ability to maintain a balanced intake and output will improve Outcome: Progressing Problem: Skin Integrity: Goal: Risk for impaired skin integrity will decrease Outcome: Progressing Goal: Ability to demonstrate warm and dry skin will improve Outcome: Progressing Goal: Circulation will improve to fullest extent possible Outcome: Progressing Summary: Progressing toward goal * Op Note - Saqib Henry MD - 12/28/2019 11:21 AM CDT Name: Gunjan Gtz Date of : 1944 Surgery Date: 12/28/2019 Pre-operative Diagnosis: Multinodular goiter Post-operative Diagnosis: Same Surgeon: Uri Henry MD PhD Surgical Procedure: Total thyroidectomy with transvercervical approach for substernal goiter ANESTHESIA: General. FINDINGS: 1. Thyroid with numerous nodules and left side extending into the chest 2. Parathyroids identified on right x 2 -- we confirmed that grossly there were no apparent parathyroids in the specimen 3. RLN bilaterally intact, with stim at the vagus at the end of the case COMPLICATIONS: None apparent. EBL: 50 cc INDICATIONS FOR PROCEDURE: Gunjan Gtz presented with a multinodular goiter which he did not want to proceed with repeat FNA. Patient was appropriately consented for this procedure after discussion of the risks, benefits, and alternatives and subsequently willingly proceeded to the OR. DESCRIPTION OF PROCEDURE: The patient was transported back to the operating by anesthesia. He was positioned supine on the table. He underwent smooth induction of general anesthesia and endotracheal intubation. The head of bed was positioned 180 degrees away. A surgeon-initiated time-out was performed according to protocol. We began by using the laryngoscope to confirm adequate positioning of the NIM monitored ETT. We then re-secured the tube in this position. he was prepped and draped in usual fashion. We began by marking a curvilinear incision in existing neck crease at the level of the cricoid. This was infiltrated with local anesthetic (lidocaine with epinephrine). We then sharply incised with a10 blade down to the platysma with laterally and to the same level in the central neck. Bovie was then used to raise superior and inferior subplatysmal flaps. With this complete we used a Bovie to divide the midline raphae a releasing the fat off the strap muscles and subsequently lateralizing the strap muscles bilaterally. We took care to make sure that the great vessels were lateralized and away from the area of our dissection. We began with our focus on the left side, using a peanut and blunt dissection to free up the attachments to the capsule. With first focused our attention on the superior lobe using blunt dissection to identify the superior thyroid artery and vein which were doubly clipped and then divided. Additional blunt dissection allowed us to then free up the superior lobe which was mobilized with an Allis clamp to help rotated into the field. We then continued our dissection inferiorly identifying bluntly the middle thyroidalvein which was also clipped and then divided and then further follow but inferiorly identified the inferior thyroid artery and vein which were clipped and ligated. With this complete additional bluntdissection allowed us to free up the remaining attachments. Several small bleeders were divided with the bipolar. There were significant small number of feeding vessels that contributed to the significant vascularity of the thyroid in this case, dramatically increasing the surgical time as well as complexity due to associated bleeding as well as the time required to ligate these individual vessels and deal with cases of bleeding. With this complete were able to rotate the inferior thyroid lobe f ully out of the wound bed, allowing us to then slowly released the remaining fascial bands along its lateral extent. We used a Milka for carefully identifying and these bands, with bipolar, Harmonic, and clips to divide these bands and avoid undue bleeding. At at all points we remainedhigh up on the gland as we released this fascial tissue to avoid any untoward injury of the recurrent laryngeal nerve. As we rotated the thyroid gland from lateral to medial we visualized the recurrent laryngeal nerve which was followed to its insertion along the cricothyroid joint. We used a combination of Jarquin to follow the nerve and release the bands above it with jeweler's bipolar. This allowed us to free up the mass up to the anterior aspect of the trachea and further rotated from lateral to medial using bipolar cautery to release the ligament of Wheatley. The pyramidal lobe was then followed circumferentially with the bipolar cautery and rotated from superior to inferior allowing the thyroid specimen as well as the pyramidal lobe to be fully mobilizedand rotated off the anterior tracheal wall, which was then further followed with bipolar to the contralateral side, without extending past the anterior margin of the trachea. We then focused our attention on the contralateral lobe dissection performing a similar set of maneuvers. Briefly, we used blunt dissection to free up the superior lobe identifying the superior thyroid artery and vein which was doubly clipped and divided. The middle thyroidal vein was then identified and divided allowing us to fully mobilize the thyroid out of its underlying bed. The gland was then further rotated followed inferiorly with blunt dissection along extended by the inferior thyroid artery and vein which were doubly clipped and divided. In the same manner as before we identified several bands that were tethering the thyroid and bluntly dissected these and divided them with bipolar, Harmonic, and clips. The thyroid a similar number of feeding vessels as the original dissection on the other side, and these were addressed accordingly. With this completed thyroid was able to be rotated from lateral to medial allowing us to identify the recurrent laryngeal nerve which was tracedinto its insertion in the cricothyroid joint. This was then further released with the Jarquin and bipolar to released overlying fascia and in this manner the gland was fully mobilized from lateral to medial until was rotated off the trachea. The ligament of Wheatley dissection was then completed bipolar electrocautery fully freeing the specimen which was then carefully inspected for any parathyroid gl ands and passed off for permanent pathological analysis. The wound bed was also inspected for parathyroid glands. We achieved hemostasis by using bipolar as well as small clips in several areas of concern. A Valsalva maneuver was then performed to confirm adequate hemostasis. Aventin was applied to several smallareas of the wound bed. Given the significant size of the thyroid that was removed, 10 Bulgarian drainwas placed within the bed and secured with 2 0 silk sutures at the skin. Finally we stimulated the vagus on both sides to confirm that it was adequately stimulating. The strap muscles were then closed and reapproximated with 3-0 Vicryl sutures. We then reapproximated the fascia at the midline with 3-0 Vicryl sutures, and the deep dermis closed with 4-0 Vicryl. A 5-0 fast was used to close the superficial skin in running interrupted fashion and bacitracin applied to the incision. The patient was turned back over to Anesthesia. The patient was awoken from general anesthesia and extubated without issue. He tolerated surgery well with no intraoperative complications and was transported to PACU in stable condition. All surgical counts were correct x2. I was present and scrubbed for all eubanks and critical portions of the procedure and immediately available for the remainder. Dictated By: Saqib Henry MD, PhD * Brief Op Note - Ruth Coffey MD - 12/28/2019 11:21 AM CDT Operative Progress Note Surgical Team: Surgeon(s) and Role: * Saqib Henry MD - Primary * Ruth Coffey MD - Resident - Assisting * Kostas Liriano MD - Resident - Assisting Anesthesiologist: Elda Watts MD TRANSPORTATION PROGRAM DIRECTOR: Fabi Thomason CRNA; Portia Tanner CRNA Student Nurse Templer Head: RASHID Arguelles Energy Crop Farmer: Prem Woodruff RN Energy Crop Farmer Relief: Hanna Pepe RN Scrub: Madie Jacobo RN DATE OF SURGERY : 12/28/2019 Preoperative Diagnosis: Pre-op Diagnosis * Goiter [E04.9] Postoperative Diagnosis: Post-op Diagnosis * Goiter [E04.9] Procedure(s): Procedure(s) (LRB): THYROIDECTOMY - TOTAL (Bilateral) POSSIBLE STERNOTOMY (N/A) Operative Findings: Total thyroidectomy Estimated Blood Loss: 150 mL Intraoperative Fluids: 1400 mls Specimens: ID Type Source Tests Collected by Time A : Total Thyroid julius grey left supeior fold. Tissue Thyroid SURGICAL PATHOLOGY Saqib Henry MD 12/28/2019 1249 Implants: Nothing was implanted during the procedure Blood/Blood Products Transfused: 0 mls Complications: None Condition on Discharge from the operating room was stable Ruth Coffey MD Date: 12/28/2019 Time: 2:04 PM TEACHING ATTESTATION : I was present and directly participated in the entire procedure (including opening and closing). Cosigned by Saqib Henry MD at 12/28/2019 2:49 PM CDT documented in this encounter Plan of Treatment Upcoming Encounters Date Type Department Care Team (Latest Contact Info) Description 10/23/2024 10:00 AM INK GRINDER Hospital Encounter [facility] Operating Room [address] [place] [id number] [place] [address] [address] 10/23/2024 10:00 AM INK GRINDER - 10/23/2024 1:00 PM INK GRINDER Surgery [facility] Operating Room [address] [place] [id number] [place] [address] [address] ARTHROPLASTY TOTAL KNEE LEFT Scheduled Procedures Name Priority Associated Diagnoses Date/Ti me ARTHROPLASTY TOTAL KNEE left knee osteoarthritis 10/23/2024 10:00 AM INK GRINDER ESOPHAGOGASTRODUODENOSCOPY Dysphagia, unspecified type documented as of this encounter Procedures Procedure Name Priority Date/Time Associated Diagnosis Comments RENAL FUNCTION PANEL Timed 12/29/2019 2:38 AM CDT RENAL FUNCTION PANEL Timed 12/28/2019 8:36 PM CDT VITAMIN D 25 HYDROXY STAT 12/28/2019 2:20 PM CDT MAGNESIUM Routine 12/28/2019 2:20 PM CDT RENAL FUNCTION PANEL STAT 12/28/2019 2:20 PM CDT PTH Routine 12/28/2019 2:18 PM CDT SURGICAL PATHOLOGY Routine 12/28/2019 12 :49 PM CDT Goiter EXCISION CYST/LESION/MASS - CHEST WALL 12/28/2019 10:49 AM CDT Goiter Case Notes 12/05: moved to second case per Elaina (reinier) Special Needs laryngeal nerve monitor THYROIDECTOMY - TOTAL 12/28/2019 10:49 AM CDT Goiter Case Notes 12/05: moved to second case per Elaina (reinier) Special Needs laryngeal nerve monitor documented in this encounter Results * Renal function panel (12/29/2019 2:38 AM CDT) Sodium 139 135 - 145 mmol/L [facility] Potassium, pl 4.5 3.3 - 4.9 mmol/L [facility] Chloride 105 97 - 110 mmol/L [facility] CO2 25 22 - 32 mmol/L [facility] Anion gap 9 2 - 15 mmol/L [facility] BUN 15 8 - 25 mg/dL [facility] Creatinine 1.21 0.80 - 1.30 mg/dL [facility] Glucose 164 70 - 199 mg/dL [facility] Comment: Interpretive Data Fasting glucose >/= [...] interpretive data was last revised 2017. Calcium 8.5 8.5 - 10.3 mg/dL [facility] Phosphorus, pl 2.3 2.3 - 4.5 mg/dL [facility] Albumin 3.6 3.5 - 5.0 g/dL [facility] Blood specimen (specimen) 12/29/2019 2:38 AM CDT 12/29/2019 2:59 AM CDT Saqib Henry MD LAB BLOOD ORDERABLES F inal Result [facility] Department [place] [address] * (ABNORMAL) Renal function panel (12/28/2019 8:36 PM CDT) Sodium 137 135 - 145 mmol/L [facility] Potassium, pl 4.1 3.3 - 4.9 mmol/L [facility] Chloride 105 97 - 110 mmol/L [facility] CO2 26 22 - 32 mmol/L [facility] Anion gap 6 2 - 15 mmol/L [facility] BUN 15 8 - 25 mg/dL [facility] Creatinine 1.18 0.80 - 1.30 mg/dL [facility] Glucose 202(H) 70 - 199 mg/dL [facility] Comment: Interpretive Data Fasting glucose >/= [...] interpretive data was last revised 2017. Calcium 8.2(L) 8.5 - 10.3 mg/dL [facility] Phosphorus, pl 2.0(L) 2.3 - 4.5 mg/dL [facility] Albumin 3.5 3.5 - 5.0 g/dL [facility] Blood specimen (specimen) 12/28/2019 8:36 PM CDT 12/28/2019 8:51 PM CDT Saqib Henry MD LAB BLOOD ORDERABLES F inal Result Performing Organization Address City/[facility] Co de Phone Number [facility] Department [place] [address] * (ABNORMAL) Vitamin D 25 hydroxy (12/28/2019 2:20 PM CDT) [facility] Vitamin D 25-OH 17(L) 30 - 80 ng/mL [facility] Blood specimen (specimen) 12/28/2019 2:20 PM CDT 12/28/2019 2:39 PM CDT Saqib Henry MD LAB BLOOD ORDERABLES F inal Result Performing Organization Address [facility] de Phone Number [facility] Department [place] [address] * Renal function panel (12/28/2019 2:20 PM CDT) [facility] Sodium 142 135 - 145 mmol/L [facility] Potassium, pl 4.3 3.3 - 4.9 mmol/L [facility] Chloride 107 97 - 110 mmol/L [facility] CO2 28 22 - 32 mmol/L [facility] Anion gap 7 2 - 15 mmol/L [facility] BUN 14 8 - 25 mg/dL [facility] Creatinine 1.17 0.80 - 1.30 mg/dL [facility] Glucose 113 70 - 199 mg/dL [facility] Comment: Interpretive Data Fasting glucose >/= [...] interpretive data was last revised 2017. Calcium 8.8 8.5 - 10.3 mg/dL [facility] Phosphorus, pl 2.5 2.3 - 4.5 mg/dL [facility] Albumin 3.8 3.5 - 5.0 g/dL [facility] Blood specimen (specimen) 12/28/2019 2:20 PM CDT 12/28/2019 2:39 PM CDT Saqib Henry MD LAB BLOOD ORDERABLES F inal Result Performing Organization Address City/[facility] Co de Phone Number [facility] [place] [address] * Magnesium (12/28/2019 2:20 PM CDT) Magnesium 1.8 1.4 - 2.5 mg/dL [facility] Blood specimen (specimen) 12/28/2019 2:20 PM CDT 12/28/2019 2:39 PM CDT Saqib Henry MD LAB BLOOD ORDERABLES F inal Result Performing Organization Address [facility] Co de Phone Number [facility] [place] [address] * PTH (12/28/2019 2:18 PM CDT) PTH 58 15 - 65 pg/mL [facility] Blood specimen (specimen) 12/28/2019 2:18 PM CDT 12/28/2019 3:05 PM CDT Saqib Henry MD LAB BLOOD ORDERABLES F inal Result Performing Organization Address City/[facility] Co de Phone Number [facility] Department [place] [address] * Surgical pathology (12/28/2019 12:49 PM CDT) Tissue (Thyroid) 12/28/2019 12:49 PM CDT Narrative PATHOLOGY [facility] - 01/03/2020 5:04 PM CDT EPIC results best viewed via link to PDF [facility] N[facility] [place] [address] SURGICAL PATHOLOGY REPORT FINAL Patient Name: ?? GUNJAN GTZ Gender: ??M : ??1944 (Age: 75) Address: ??[address] [place] [address] ??[address] Hospital #: ??[id number] Taken:12/28/2019 Received:12/28/2019 Reported: 01/03/2020 Patient Type: [facility] Inpatient ?? Service: Surgery Location: [place] [address] Physician(s): ??Saqib Henry M.D., PH.D. Santino Funk M.D. MD Kostas Bearden M.D. Diagnosis: Thyroid, total thyroidectomy: ? 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 Blossom Valencia MD Report Electronically Reviewed and Signed Out By ??Blossom Valencia MD 01/03/2020 17:04:02 Microscopic Description and Comment: Microscopic examination substantiates the above cited diagnosis. Que Kirby M.D. History: The patient is a 75-year-old man with goiter. Operative procedure: Total thyroidectomy, possible sternotomy. Specimen(s) Received: A: Total thyroid julius grey left superior fold Gross Description: Received in formalin labeled total thyroid julius marked left superior fold and consists of a 106.1 gram, total thyroid. ??The left lobe measures 8.0 x 5.6 x 3.9 cm and is sectioned to show multinodular beefy red to brown with a dominant nodule partially circumscribed with heterogeneous cut surfaces and located in the mid-inferior pole that measures 5.2 x 4.1 x 4.0 cm and an ill-defined nodule with heterogeneous cut surfaces and focal firm white discoloration located in the left upper pole. ?? The isthmus measures 3.0 x 2.5 x 1.0 cm and is sectioned to show a well-defined solid translucent nodule that measures 1.1 x 0.7 x 0.5 cm. ??The right lobe measures 5.8 x 1.5 x 3.5 cm and is sectioned to show multinodular beefy red with a well-defined nodule in the inferior pole that measures 1.5 x 1.2 x 1.0 cm. ??And a mid pole well- defined solid harper nodule that measures 0.9 x 0.7 x 0.5 cm. ??Also identified is a separate detached fragment of thyroid tissue that is disrupted in the periphery. ??Thyroid inked black, putative resection margin of the separate fragment inked blue. Labeled A1 - associate financial representative left upper pole; A2 - associate financial representative left upper pole nodule; A3 to A5 - associate financial representative sections of left dominant nodule periphery; A6 - associate financial representative left inferior pole; A7 - isthmus nodule (ends not submitted); A8 - associate financial representative right superior lobe; A9 - right mid lobe nodule (ends not submitted); A10 - associate financial representative right inferior nodule (ends not submitted); A11 ??associate financial representative separate fragment. Jar 0. ?? [facility]/12/29/2019 14:38 Gross Resident:Isra Collado MD By this signature, I attest that the above diagnosis is based upon my personal examination of the slides(and/or other material). The performance characteristics of some immunohistochemical stains, fluorescence in-situ hybridization tests and immunophenotyping by flow cytometry cited in this report (if any) were determined by the Surgical Pathology Department at [facility] as part of an ongoing quality cloth tester program and in compliance with federally mandated [...] a high complexity laboratory under CLIA '88. ??The FDA has determined that such clearance [...] characteristics determined by the Surgical Pathology Department of [facility]. ??It has not been cleared or approved by the U. S. Food and Drug Administration. IMAGES AND SCANNED DOCUMENTS, IF INCLUDED, ONLY VIEWABLE IN PDF VERSION OF REPORT Saqib Henry MD LAB PATHOLOGY ORDERABL ES Final Result PATHOLOGY [facility] 3rd Floor [place], [place] [phone] documented in this encounter Visit Diagnoses Diagnosis Goiter- Primary Goiter, unspecified Goiter Goiter, unspecified documented in this encounter Admitting Diagnoses Diagnosis Goiter Goiter, unspecified documented in this encounter Administered Medications Inactive Administered Medications - up to 3 most recent administrations Medication Order MAR Action Action Date Dose Rate Site acetaminophen (TYLENOL) tablet 1,000 mg 1,000 mg, oral, Every 6 hours, First dose on Wed12/28/19 at 1800, Indications: PainIndications:Pain Given 12/30/2019 12:04 PM CDT 1,000 mg Given 12/30/2019 5:51 AM CDT 1,000 mg Given 12/29/2019 6:05 PM CDT 1,000 mg albuterol HFA (PROVENTIL HFA,VENTOLIN HFA,PROAIR HFA) 90 mcg/actuation inhaler 2 puff 2 puff, inhalation, Every 4 hours PRN (cable respooler), wheezing, Starting on Wed12/28/19 at 1719, Phase I & Post-op Floor calcium carbonate (OS-KAREN) tablet 1,250 mg 1,250 mg (500 mg of elemental calcium), oral, 3 times daily, First dose on Wed12/28/19 at 2100, Phase I & Post-op Floor Given 12/30/2019 8:23 AM CDT 1,2 50 mg Given 12/29/2019 8:57 PM CDT 1,250 mg Given 12/29/2019 4:15 PM CDT 1,250 mg ceFAZolin (ANCEF) 2,000 mg/20 mL in sterile water (premix) 2,000 mg 2,000 mg, intravenous, at 400 mL/hr, Administer over 3 Minutes, Every 8 hours, First dose on Jo 12/28/19 at 1800, For 2 doses, Beginning 8 hours after pre-op dose., Indications: Prophylaxis, Surgical, Skin/Soft Tissue InfectionIndications:Prophylaxis, Surgical,Skin/Soft Tissue Infection New Bag 12/29/2019 1:13 AM CDT 2,000 mg 400 mL/hr New Bag 12/28/2019 6:50 PM CDT 2,000 mg 400 mL/hr cholecalciferol (VITAMIN D-3) capsule 2,000 Units 2,000 Units, oral, Daily, First dose on Jo 12/28/19 at 2015 Given 12/30/2019 8:23 AM CDT 2,000 Units Given 12/29/2019 8:08 AM CDT 2,000 Units Given 12/28/2019 9:08 PM CDT 2,000 Units dextrose 5% and sodium chloride 0.45% infusion (premix) 50 mL/hr, intravenous, Continuous, Starting on Jo 12/28/19 at 1445, Phase I & Post-op Floor Rate/Dose Change 12/29/2019 2:39 AM CDT 50 mL/hr 50 mL/hr New Bag 12/29/2019 12:27 AM CDT 100 mL/hr 100 mL/hr New Bag 12/28/2019 2:50 PM CDT 100 mL/hr 100 mL/hr docusate sodium (COLACE) capsule 100 mg 100 mg, oral, 2 times daily PRN, constipation, Starting on Jo 12/28/19 at 1717, Phase I & Post-op Floor, Indications: constipationIndications:const ipation Given 12/29/2019 8:56 PM CDT 100 mg enoxaparin (LOVENOX) syringe 40 mg 40 mg, subcutaneous, Daily (for enoxaparin), First dose on Jo 12/28/19 at 2100, Indications: Deep Vein Thrombosis PreventionIndications:Deep Vein Thrombosis Prevention Given 12/29/2019 8:56 PM CDT 40 mg Right Lower Abdomen Given 12/28/2019 9:08 PM CDT 40 mg Ri ght Lower Abdomen fentaNYL (SUBLIMAZE) preservative free injection 50 mcg 50 mcg, intravenous, Once as needed, breakthrough pain, Starting on Jo 12/28/19 at 1412, For 1 dose, Phase I, Administer for uncontrolled or increasing pain while in PACU only. Then proceed to PACU 1st line analgesic., Indications: PainIndications:Pain Given 12/28/2019 2:2 6 PM CDT 50 mcg HYDROmorphone (DILAUDID) injection 0.2 mg 0.2 mg, intravenous, Administer over 2 Minutes, Every 10 min PRN, 1st line for pain, Starting on Jo 12/28/19 at 1412, Phase I, Notify Anesthesiologist if total PACU dose reaches 2 mg and pain score 5/10 or more., Indications: PainIndications:Pain Given 12/28/2019 3:45 PM CDT 0.2 mg Given 12/28/2019 2:56 PM CDT 0.2 mg influenza trivalent [id number] (FLUZONE HIGH DOSE) 180 mcg/0.5 mL vaccine (HIGH DOSE age 65 years and up) 0.5 mL 0.5 mL, intramuscular, During hospitalization, immunization, Starting on Jo 12/28/19 at 1730, For 1 dose Given 12/30/2019 10:28 AM CDT 0.5 mL Left Deltoid Lactated Ringer's (LR) infusion 30 mL/hr, intravenous, Continuous, Starting on Jo 12/28/19 at 0900, Pre-Op Rate/Dose Verify 12/28/2019 10:50 AM CDT New Bag 12/28/2019 8:42 AM CDT 30 mL/hr 30 mL/hr levothyroxine (SYNTHROID) tablet 150 mcg 150 mcg, oral, Daily (early AM), First dose on Wed12/29/19 at 0600, Phase I & Post-op Floor, Administer on an empty stomach, preferably 30 minutes before breakfast. Take 4 hours apart from antacids, iron and calcium products. Given 12/30/2019 5:51 AM CDT 150 mcg Given 12/29/2019 6:41 AM CDT 150 mcg magnesium sulfate 2 g/50 mL in water (premix) 2 g 2 g, intravenous, Administer over 60 Minutes, Once, On Jo 12/28/19 at 2330, For 1 dose New Bag 12/29/2019 1:14 AM CDT 2 g ondansetron (ZOFRAN) injection 4 mg 4 mg, intravenous, Administer over 2 Minutes, Every 6 hours PRN, nausea, vomiting, if not tolerating PO, Starting on Jo 12/28/19 at 1717, Indications: Nausea and VomitingIndications:Nausea and Vomiting ondansetron ODT (ZOFRAN-ODT) disintegrating tablet 4 mg 4 mg, oral, Every 6 hours PRN, nausea, vomiting, Starting on Jo 12/28/19 at 1717, Indications: Nausea and VomitingIndications:Nausea and Vomiting oxyCODONE (ROXICODONE) tablet 5 mg 5 mg, oral, Every 4 hours PRN, 2nd line for pain, Starting on Jo 12/28/19 at 1610, Phase I & Post-op Floor, May administer 1 hour after 1st line agent for uncontrolled or increasing pain., Indications: PainIndications:Pain Given 12/30/2019 10:27 AM CDT 5 mg Given 12/30/2019 5:49 AM CDT 5 mg Given 12/29/2019 11:52 PM CDT [address] (PROTONIX) extended release tablet 40 mg 40 mg, oral, Daily, First dose on Jo 12/28/19 at 1800, Phase I & Post-op Floor, Do not crush, chew, cut, dissolve, open or otherwise manipulate tablet/capsule., Indications: Treatment of Non-Bleeding Gastric DisorderIndications:Treatment of Non-Bleeding Gastric Disorder Given 12/30/2019 8:23 AM CDT 40 mg Given 12/29/2019 8:08 AM CDT 40 mg Given 12/28/2019 6:38 PM CDT 40 mg temazepam (RESTORIL) capsule 15 mg 15 mg, oral, Nightly, First dose on Wed12/29/19 at 2100, Indications: InsomniaIndications:Insomnia Given 12/29/2019 8:56 PM CDT 15 mg documented in this encounter Discontinued Medications Medication Sig Discontinue Reason Start Date End Da te ergocalciferol (VITAMIN D) 50,000 unit capsuleIndications:Vit fagan D Deficiency,takes on Wednesday Take 50,000 Units by mouth once a week Pt not taking Stop Taking at Discharge 12/30/2019 documented as of this encounter Active and Recently Administered Medications Times are shown in CDT. Scheduled Medication Order 12/28/2019 12/29/2019 12/30/2019 acetaminophen (TYLENOL) tablet 1,000 mg 1,000 mg, oral, Every 6 hours, First dose on Jo 12/28/19 at 1800, Indications: Pain 1838 (Given - Provider: Maritza Ross, RN) 0113 (Given - Provider: Sigrid Barreto RN)0641 (Given - Provider: Sigrid Barreto RN)1152 (Given - Provider: Maritza Ross RN)1805 (Given - Provider: Moreno Milligan, MARAH)2355 (Not Given - Provider: Sigrid Barreto RN - Reason: Contraindicated) 0551 (Given - Provider: Sigrid Barreto RN)1204 (Given - Provider: Libby Navarrete, MARAH) calcium carbonate (OS-KAREN) tablet 1,250 mg 1,250 mg (500 mg of elemental calcium), oral, 3 times daily, First dose on Jo 12/28/19 at 2100, Phase I & Post-op Floor 2107 (Given - Provider: Sigrid Barreto RN) 0808 (Given - Provider: Maritza Ross, MARAH)1615 (Given - Provider: Moreno Milligan, RN)205 (Given - Provider: Sigrid Barreto RN) 0823 (Given - Provider: Libby Navarrete, MARAH) ceFAZolin (ANCEF) 2,000 mg/20 mL in sterile water (premix) 2,000 mg (COMPLETED) 2,000 mg, intravenous, at 400 mL/hr, Administer over 3 Minutes, Every 8 hours, First dose on Jo 12/28/19 at 1800, For 2 doses, Beginning 8 hours after pre-op dose., Indications: Prophylaxis, Surgical, Skin/Soft Tissue Infection 1850 (New Bag - Provider: Uriel Mar RN) 0113 (New Bag - Provider: Sigrid Barreto RN) cholecalciferol (VITAMIN D-3) capsule 2,000 Units 2,000 Units, oral, Daily, First dose on Jo 12/28/19 at 2014 210 (Given - Provider: Sigrid Barreto RN) 0808 (Given - Provider: Maritza Ross RN) 0823 (Given - Provider: Libby Navarrete, RN) enoxaparin (LOVENOX) syringe 40 mg 40 mg, subcutaneous, Daily (for enoxaparin), First dose on Wed12/28/19 at 2100, Indications: Deep Vein Thrombosis Prevention 2107 (Given - Provider: Sigrid Barreto RN) 2055 (Given - Provider: Sigrid Barreto, RN) levothyroxine (SYNTHROID) tablet 150 mcg 150 mcg, oral, Daily (early AM), First dose on Wed12/29/19 at 0600, Phase I & Post-op Floor, Administer on an empty stomach, preferably 30 minutes before breakfast. Take 4 hours apart from antacids, iron and calcium products. 0641 (Given - Provider: Sigrid Barreto RN) 0551 (Given - Provider: Sigrid Barreto RN) magnesium sulfate 2 g/50 mL in water (premix) 2 g (COMPLETED) 2 g, intravenous, Administer over 60 Minutes, Once, On Wed12/28/19 at 2330, For 1 dose 0114 (New Bag - Provider: Sigrid Barreto RN) pantoprazole DR (PROTONIX) extended release tablet 40 mg 40 mg, oral, Daily, First dose on Wed12/28/19 at 1800, Phase I & Post-op Floor, Do not crush, chew, cut, dissolve, open or otherwise manipulate tablet/capsule., Indications: Treatment of Non-Bleeding Gastric Disorder 183 (Given - Provider: Maritza Ross RN) 0808 (Given - Provider: Maritza Ross RN) 0823 (Given - Provider: Libby Navarrete, MARAH) temazepam (RESTORIL) capsule 15 mg 15 mg, oral, Nightly, First dose on Wed12/29/19 at 2100, Indications: Insomnia 2055 (Given - Provider: Sigrid Barreto RN) Continuous Medication Order 12/28/2019 12/29/2019 12/30/2019 dextrose 5% and sodium chloride 0.45% infusion (premix) (CANCELED) 50 mL/hr, intravenous, Continuous, Starting on Jo 12/28/19 at 1445, Phase I & Post-op Floor 1450 (New Bag - Provider: Lulu Schneider RN) 0027 (New Bag - Provider: Sigrid Barreto RN)0239 (Rate/Dose Change - Provider: Carolina Ortega RN) Lactated Ringer's (LR) infusion (CANCELED) 30 mL/hr, intravenous, Continuous, Starting on Jo 12/28/19 at 0900, Pre-Op 0842 (New Bag - Provider: Blanca Hampton RN)1050 (Rate/Dose Verify - Provider: RASHID Arguelles)1127 (Anesthesia Volume Adjustment - Provider: RASHID Arguelles)1320 (Anesthesia Volume Adjustment - Provider: RASHID Arguelles) PRN Medication Order 12/28/2019 12/29/2019 12/30/2019 albuterol HFA (PROVENTIL HFA,VENTOLIN HFA,PROAIR HFA) 90 mcg/actuation inhaler 2 puff 2 puff, inhalation, Every 4 hours PRN (cable respooler), wheezing, Starting on Jo 12/28/19 at 1719, Phase I & Post-op Floor docusate sodium (COLACE) capsule 100 mg 100 mg, oral, 2 times daily PRN, constipation, Starting on Jo 12/28/19 at 1717, Phase I & Post-op Floor, Indications: constipation 2055 (Given - Provider: Sigrid Barreto RN) fentaNYL (SUBLIMAZE) preservative free injection 50 mcg (COMPLETED) 50 mcg, intravenous, Once as needed, breakthrough pain, Starting on Jo 12/28/19 at 1412, For 1 dose, Phase I, Administer for uncontrolled or increasing pain while in PACU only. Then proceed to PACU 1st line analgesic., Indications: Pain 1426 (Given - Provider: Lulu Schneider RN) HYDROmorphone (DILAUDID) injection 0.2 mg (CANCELED) 0.2 mg, intravenous, Administer over 2 Minutes, Every 10 min PRN, 1st line for pain, Starting on Jo 12/28/19 at 1412, Phase I, Notify Anesthesiologist if total PACU dose reaches 2 mg and pain score 5/10 or more., Indications: Pain 1456 (Given - Provider: Lulu Schneider RN)1545 (Given - Provider: Simi Reina RN) influenza trivalent [id number] (FLUZONE HIGH DOSE) 180 mcg/0.5 mL vaccine (HIGH DOSE age 65 years and up) 0.5 mL (COMPLETED) 0.5 mL, intramuscular, During hospitalization, immunization, Starting on Jo 12/28/19 at 1730, For 1 dose 1028 (Given - Provider: Libby Navarrete, RN) lidocaine-EPINEPHrine (XYLOCAINE with EPI) 1 %-1:100,000 injection (CANCELED) As needed, Starting on Jo 12/28/19 at 1107, Intra-Op, Indications: Administration of Local Anesthesia 1107 (Given - Provider: Kostas Liriano MD) ondansetron (ZOFRAN) injection 4 mg(Linked Group 1) 4 mg, intravenous, Administer over 2 Minutes, Every 6 hours PRN, nausea, vomiting, if not tolerating PO, Starting on Jo 12/28/19 at 1717, Indications: Nausea and Vomiting ondansetron ODT (ZOFRAN-ODT) disintegrating tablet 4 mg(Linked Group 1) 4 mg, oral, Every 6 hours PRN, nausea, vomiting, Starting on Jo 12/28/19 at 1717, Indications: Nausea and Vomiting oxyCODONE (ROXICODONE) tablet 5 mg 5 mg, oral, Every 4 hours PRN, 2nd line for pain, Starting on Jo 12/28/19 at 1610, Phase I & Post-op Floor, May administer 1 hour after 1st line agent for uncontrolled or increasing pain., Indications: Pain 1628 (Given - Provider: Emma Green RN) 0119 (Given - Provider: Sigrid Barreto RN)0642 (Given - Provider: Sigrid Barreto RN)1923 (Given - Provider: Maritza Ross RN)2352 (Given - Provider: Sigrid Barreto RN) 0549 (Given - Provider: Sigrid Barreto RN)1027 (Given - Provider: Libby Navarrete, RN) sodium chloride 0.9 % irrigation (CANCELED) As needed, Starting on Jo 12/28/19 at 1131, Intra-Op 1121 (Given - Provider: Saqib Henry MD) Linked Groups Order Group 1: ondansetron ODT (ZOFRAN-ODT) disintegrating tablet 4 mgJump to med 4 mg, oral, Every 6 hours PRN, nausea, vomiting, Starting on Jo 12/28/19 at 1717, Indications: Nausea and Vomiting Or ondansetron (ZOFRAN) injection 4 mgJump to med 4 mg, intravenous, Administer over 2 Minutes, Every 6 hours PRN, nausea, vomiting, if not tolerating PO, Starting on Jo 12/28/19 at 1717, Indications: Nausea and Vomiting documented in this encounter Orders Medications Ordered That Te ht Not Have Been Administered Count Last Ordered Date First Ordered Date acetaminophen (TYLENOL) tablet 1,000 mg 1 0 12/28/2019 albuterol HFA (PROVENTIL HFA ,VENTOLIN HFA,PROAIR HFA) 90 mcg/actuation inhaler 2 puff 2 12/28/2019 Lactated Ringer's (LR) infusion 1 0 lidocaine-EPINEPHrine (XYLOC ALYSSA with EPI) 1 %-1:100,000 injection 1 12/28/2019 ondansetron (ZOFRAN) injection 4 mg 1 12/27 ondansetron ODT (ZOFRAN-ODT) disintegrating tablet 4 mg 1 12/28/2019 sodium chloride 0.9 % irrigation 1 12/28/19 20 sodium chloride 0.9% flush 0.5-20 mL 1 12/09 documented in this encounter Care Teams Library Director Relationship Specialty [place] [address] [facility] [address] [place] [address] PCP - General 11/12/16 03/11/22 documented as of this encounter
--- OUTSIDE RECORDS SUMMARY | 2024-10-11 02:02 | XMS_ITS | Encounter Summary ---
Author Organization [facility] Address [address] [place] [address] Care Team Providers Care Crm Marketing Specialist Name Role Phone Santino Funk MD Primary Care Provider + Reason for Referral * Diagnostic Imaging (Routine) - Closed Specialty Diagnoses / Procedures Referred By Contac t Referred To Contact Diagnoses Cough Procedures XR Chest Pa Lateral 2 Views Santino Funk MD Phone: tel: fax: [address] [address] Referral ID Status Reason Start Date Expiration Date Visits Re quested Visits Authorized [id number] Closed 11/06/2019 05/17/2021 1 1 SETTER APPRENTICE Reason for Visit * Diagnostic Imaging (Routine) - Closed Specialty Diagnoses / Procedures Referred By Contac t Referred To Contact Diagnoses Cough Procedures XR Chest Pa Lateral 2 Views Santino Funk MD Phone: tel: fax: [address] [address] Referral ID Status Reason Start Date Expiration Date Visits Re quested Visits Authorized [id number] Closed 11/06/2019 05/17/2021 1 1 Encounter Details Date Type Department Care Team (Latest Contact Info) Description 11/06/2019 11:45 AM TILE SETTER APPRENTICE - 11/06/2019 11:59 PM TILE SETTER APPRENTICE Hospital Encounter [facility] Diagnostic Imaging [address] [place] [address] [place] [address] [facility] [address] [place] [address] Cough Discharge Disposition: Discharge to home or self [...] file Legal Sex Male 3:25 PM TILE SETTER APPRENTICE Gender Identity Not on file Sexual Orientation Not on file documented as of this encounter Medications at Time of Discharge ciprofloxacin (CIPRO) 500 mg tablet TK 1 T PO BID 0 12/02/2018 0 docusate sodium (COLACE) 100 mg capsuleIndications:c onstipation Take 1 capsule (100 mg total) by mouth 2 (two) times a day. 30 capsule 12/10/2018 2 doxycycline 100 mg tablet TK 1 T PO BID 10/30/2019 0 ergocalciferol (VITAMIN D) 50,000 unit capsuleIndications:V itamin D Deficiency,takes on Wednesday Take 50,000 Units by mouth once a week Pt not taking 0 HYDROcodone-acetamin ophen (NORCO) 7.5-325 mg per tabletIndications:Pa in TK 1 T PO Q 6 H PRN 0 10/12/2018 0 levoFLOXacin (LEVAQUIN) 500 mg tablet TK 1 T PO ONCE A DAY 11/06/2019 0 meloxicam (MOBIC) 15 mg tablet Take 1 tablet by mouth daily. 06/17/2018 0 methylPREDNISolone (MEDROL, AILIN,) 4 mg Dosepack Take 1 tablet (4 mg total) by mouth daily. Take as directed on package 1 packet 12/07/2018 0 omeprazole (PriLOSEC) 20 mg capsule take 1 capsule by oral route every day before a meal 0 0 10/21/2016 4 ondansetron ODT (ZOFRAN-ODT) 4 mg disintegrating tablet Dissolve 1 tablet for mild to moderate nausea or vomiting or 2 tablets for severe nausea or vomiting oral twice a day as needed. 20 tablet 12/10/2018 0 oxyCODONE-acetaminop hen (PERCOCET) 7.5-325 mg per tabletIndications:Pa in Take 1-2 tablets every 4 hours as needed for pain 60 tablet 10/12/2018 0 polyethylene glycol (MIRALAX) 17 gram/dose powderIndications:co nstipation Mix 1 scoop (17 g) in 8 oz of water and drink daily. 85 g 12/10/2018 1 sildenafil, antihypertensive, (REVATIO) 20 mg tabletIndications:er ectile dysfunction Take 20 mg by mouth daily as needed 5 11/11/2018 1 temazepam (RESTORIL) 15 mg capsuleIndications:I nsomnia Take 15 mg by mouth nightly as needed for sleep 01/21/2018 0 documented as of this encounter Discharge Disposition Disposition Code Departure Means Destination Discharge to home or self care documented in this encounter Plan of Treatment Upcoming Encounters Date Type Department Care Team (Latest Contact Info) Description 10/23/2024 10:00 AM TILE SETTER APPRENTICE Hospital Encounter [facility] Operating Room [address] [place] [address] [place] [address] [address] 10/23/2024 10:00 AM TILE SETTER APPRENTICE - 10/23/2024 1:00 PM [facility] Surgery [facility] Operating Room [address] [place] [address] [place] [address] [address] ARTHROPLASTY TOTAL KNEE LEFT Scheduled Procedures Name Priority Associated Diagnoses Date/Ti me ARTHROPLASTY TOTAL KNEE left knee osteoarthritis 10/23/2024 10:00 AM TILE SETTER APPRENTICE ESOPHAGOGASTRODUODENOSCOPY Dysphagia, unspecified type documented as of this encounter Procedures Procedure Name Priority Date/Time Associated Diagnosis Comments XR CHEST PA LATERAL 2 VIEWS Schedule Routine, Read Routine (OP Routine) 11/06/2019 11:56 AM TILE SETTER APPRENTICE Cough documented in this encounter Results * XR Chest Pa Lateral 2 Views (11/06/2019 11:56 AM TILE SETTER APPRENTICE) Anatomical Region Laterality Modality Body, Chest N/A Computed Radiogr aphy 11/06/2019 12:0 3 PM TILE SETTER APPRENTICE Impressions 11/06/2019 12:04 PM TILE SETTER APPRENTICE OPACIFICATION OF THE LEFT LUNG BASE AND COSTOPHRENIC ANGLE INDETERMINATE AGE. ??POSTSURGICAL CHANGES POSTERIOR MEDIASTINUM. Electronically signed by: Beka Draper M.D. Narrative 11/06/2019 12:04 PM TILE SETTER APPRENTICE EXAMINATION: XR CHEST PA LATERAL 2 VIEWS HISTORY: 75-year-old man with cough and congestion. ??History of asthma. FINDINGS: No priors. ??Heart size upper limits of normal. ??Tortuous aorta. ??No acute infiltrates pleural fluid or failure. ??Blunting left costophrenic angle with mild elevation left diaphragm indeterminate age. ??Surgical clips in the posterior mediastinum on the left side. Procedure Note Beka Draper MD - 11/06/2019 EXAMINATION: XR CHEST PA LATERAL 2 VIEWS HISTORY: 75-year-old man with cough and congestion. History of asthma. FINDINGS: No priors. Heart size upper limits of normal. Tortuous aorta. No acute infiltrates pleural fluid or failure. Blunting left costophrenic angle with mild elevation left diaphragm indeterminate age. Surgical clips in the posterior mediastinum on the left side. IMPRESSION: OPACIFICATION OF THE LEFT LUNG BASE AND COSTOPHRENIC ANGLE INDETERMINATE AGE. POSTSURGICAL CHANGES POSTERIOR MEDIASTINUM. Electronically signed by: Beka Draper M.D. Santino Funk MD IMG XR PROCEDURES Final Result documented in this encounter Visit Diagnoses Diagnosis Cough documented in this encounter Care Teams Crm Marketing Specialist Relationship Specialty [place] [address] [facility] [place] [address] PCP - General 11/12/16 03/11/22 documented as of this encounter
--- OUTSIDE RECORDS SUMMARY | 2024-10-11 02:02 | XMS_ITS | Encounter Summary ---
Author Organization [facility] Healthcare Address [address] [place] [address] Care Team Providers Care Hand Stonecutter Name Role Phone Santino Funk MD Primary Care Provider + Encounter Details Date Type Department Care Team (Late st Contact Info) Description 12/10/2018 2:30 PM TRUCK BRACER - 12/10/2018 11:59 PM TRUCK BRACER Hospital Encounter [facility] Diagnostic Imaging [address] [place] [address] [place] [address] [id number] [place] [address] Discharge Disposition: Discharge to home or self care Social History Tobacco Use Types Packs/Day Years Used Date Smoking Tobacco: Former Smokeless Tobacco: Never Alcohol Use Standard Drinks/Week Comments Yes 0 (1 standard drink = 0.6 oz pur e alcohol) Sex and Gender Information Value Date Recorded Sex Assigned at Not on file Legal Sex Male 3:25 PM TRUCK BRACER Gender Identity Not on file Sexual Orientation Not on file documented as of this encounter Medications at Time of Discharge ciprofloxacin (CIPRO) 500 mg tablet TK 1 T PO BID 0 12/02/2018 0 docusate sodium (COLACE) 100 mg capsuleIndications:c onstipation Take 1 capsule (100 mg total) by mouth 2 (two) times a day. 30 capsule 12/10/2018 2 ergocalciferol (VITAMIN D) 50,000 unit capsuleIndications:V itamin D Deficiency,takes on Wednesday Take 50,000 Units by mouth once a week Pt not taking 0 HYDROcodone-acetamin ophen (NORCO) 7.5-325 mg per tabletIndications:Pa in TK 1 T PO Q 6 H PRN 0 10/12/2018 0 meloxicam (MOBIC) 15 mg tablet Take [...] (Latest Contact Info) Description 10/23/2024 10:00 AM TRUCK BRACER Hospital Encounter [facility] Operating Room [address] [place] [address] [place] [address] [facility] [address] [place] [address] 10/23/2024 10:00 AM TRUCK BRACER - 10/23/2024 1:00 PM TRUCK BRACER Surgery [facility] Operating Room [address] [place] [address] [place] [address] [facility] [address] [place] [address] ARTHROPLASTY TOTAL KNEE LEFT Scheduled Procedures Name Priority Associated Diagnoses Date/Ti me ARTHROPLASTY TOTAL KNEE left knee osteoarthritis 10/23/2024 10:00 AM TRUCK BRACER ESOPHAGOGASTRODUODENOSCOPY Dysphagia, unspecified type documented as of this encounter Procedures Procedure Name Priority Date/Time Associated Diagnosis Comments XR ABDOMEN ERECT AND OR DECUBITS 2 VIEWS ED 12/10/2018 2:47 PM TRUCK BRACER documented in this encounter Results * XR Abdomen Erect and or Decubitus 2 Views (12/10/2018 2:47 PM TRUCK BRACER) Anatomical Region Laterality Modality Body, Abdomen N/A Computed Radiogr aphy 12/10/2018 3:13 PM TRUCK BRACER Impressions 12/10/2018 3:15 PM TRUCK BRACER Moderate amount of colonic stool is noted, which may reflect constipation. Electronically signed by: Arpan Martin M.D. Narrative 12/10/2018 3:15 PM TRUCK BRACER RESULT: EXAMINATION: ABDOMINAL RADIOGRAPH, 1 VIEW Date: 12/10/2018 2:35 PM History: Abdominal pain Comparison: 01/10/2020 Findings: There are no dilated small bowel loops to suggest obstruction. ??Moderate amount of colonic stool is seen. ??There is no evidence of free intraperitoneal air. The osseous structures appear intact. Procedure Note Arpan Martin MD - 12/10/2018 RESULT: EXAMINATION: ABDOMINAL RADIOGRAPH, 1 VIEW Date: 12/10/2018 2:35 PM History: Abdominal pain Comparison: 01/10/2020 Findings: There are no dilated small bowel loops to suggest obstruction. Moderate amount of colonic stool is seen. There is no evidence of free intraperitoneal air. The osseous structures appear intact. IMPRESSION: Moderate amount of colonic stool is noted, which may reflect constipation. Electronically signed by: Arpan Martin M.D. Betina Bray MD IMG XR PROCEDURES Final Result documented in this encounter Visit Diagnoses Not on filedocumented in this encounter Care Teams Hand Stonecutter Relationship Specialty [place] [address] [address] PCP - General 11/12/16 03/11/22 documented as of this encounter
--- OUTSIDE RECORDS SUMMARY | 2024-10-11 02:02 | XMS_ITS | Encounter Summary ---
Author Organization [facility] Address [address] [place] [address] Care Team Providers Care Death Clearance Coordinator Name Role Phone Santino Funk MD Primary Care Provider + Reason for Visit * Reason Comments Follow-up Follow-up Encounter Details Date Type Department Care Team (Latest Contact Info) Description 12/27/2018 2:45 PM CDT Office Visit [facility] [address] [address] [place] [address] [facility] [address] [place] [address] Primary osteoarthritis of left knee (Primary Dx) Social History Tobacco Use Types Packs/Day Years Used Date Smoking Tobacco: Former Smokeless Tobacco: Never Alcohol Use Standard Drinks/Week Comments Yes 0 (1 standard drink = 0.6 oz pur e alcohol) PHQ-2 Answer Date Recorded PHQ-2 Score 0 12/12/2018 Sex and Gender Information Value Date Recorded Sex Assigned at Not on file Legal Sex Male 3:25 PM CHECKOUT OPERATOR Gender Identity Not on file Sexual Orientation Not on file documented as of this encounter Last Filed Vital Signs Vital Sign Reading Time Taken Comments Blood Pressure - - Pulse - - Temperature - - Respiratory Rate - - Oxygen Saturation - - Inhaled Oxygen Concentration - - Weight 92.4 kg (203 lb 12.8 oz) 12/27/2018 2:56 PM CDT Height 182.9 cm (6') 12/27/2018 2:56 PM CDT Body Mass Index 27.64 12/27/2018 2:56 PM CDT documented in this encounter Progress Notes * Jossie Montalvo PA - 12/27/2018 2:45 PM CDT Images from the original note were not included. FOLLOW UP VISIT Subjective CHIEF COMPLAINT He had concerns including Follow-up of the Left Knee and Follow-up of the Right Knee. HISTORY OF PRESENT ILLINESS Patient is seen today in follow-up of his bilateral knees. He had bilateral subchondroplasty and arthroscopy done 09/22/2018. Patient was seen 3 weeks ago and had a dramatic increase in pain in both of his legs including the knees. He was at the time taking Cipro for a genitourinary infection. He was given a steroid pack and knee braces and states he is overall doing better. Both legs will still randomly get diffuse pain that goes from the hips to the ankles. He states this primarily happens after he has been up walking for long period of time and then sits down. He states the pain will come,last for 2 or 3 min and then go away completely. This is symmetrically in both legs. Not associatedwith any swelling, in fact he states the swelling in his legs has improved significantly over the past several months. Currently he feels like his overall condition is improving. He really does not have much pain in his knees today. He is not using his braces. MEDICATIONS He has a current medication list which includes the following prescription(s): omeprazole, ciprofloxacin, docusate sodium, ergocalciferol, hydrocodone- acetaminophen, meloxicam, methylprednisolone, ondansetron odt, oxycodone- acetaminophen, polyethylene glycol, sildenafil (antihypertensive), and temaz epam. ALLERGIES He has No Known Allergies. Review [...] EXAM Exam of the left knee demonstrates 2+ anterior medial soft tissue swelling, trace joint effusion. Varus attitude is present. He can extend fully and flex further to 115??. He has no laxity with varusor valgus testing, the joint lines are nontender today. Negative anterior drawer and posterior drawer. Exam of the right knee demonstrates no redness or warmth, no soft tissue swelling or joint effusion. Motion is 0-120 degrees with no laxity noted on varus or valgus testing. Negative anterior drawer and posterior drawer. REVIEW OF X-RAYS/STUDIES/LABS (IF ORDERED) Assessment/Plan Abrahan was seen today for follow-up and follow-up. Diagnoses and all orders for this visit: Primary osteoarthritis of left knee Plan Patient's knee and leg pain has improved. He did well from his bilateral knee arthroscopies and hassubsequently had injection in his left knee which did help. He has had some bilateral leg pain which she describes as sharp, affecting both legs equally from the hip to the ankle. This may be relatedto Cipro antibiotic use that he was on a few weeks back for general urinary infection. He has comple ana that antibiotic course and the pain is resolving. I recommend he continue with his home exercise program. I told him he had injections in the knees every 3 months as needed. I have recommended a 3 month follow-up appointment or sooner if he notices any worsening of his condition. Follow-up willbe at that time. LORI Craig documented in this encounter Plan of Treatment Upcoming Encounters Date Type Department Care Team (Latest Contact Info) Description 10/23/2024 10:00 AM CHECKOUT OPERATOR Hospital Encounter [facility] Operating Room [address] [place] [address] [place] [id number] [place] [address] 10/23/2024 10:00 AM CHECKOUT OPERATOR - 10/23/2024 1:00 PM CHECKOUT OPERATOR Surgery [facility] Operating Room [address] [place] [address] [place] [address] [facility] [address] [place] [address] ARTHROPLASTY TOTAL KNEE LEFT Scheduled Procedures Name Priority Associated Diagnoses Date/Ti me ARTHROPLASTY TOTAL KNEE left knee osteoarthritis 10/23/2024 10:00 AM CHECKOUT OPERATOR ESOPHAGOGASTRODUODENOSCOPY Dysphagia, unspecified type documented as of this encounter Visit Diagnoses Diagnosis Primary osteoarthritis of left knee- Primary documented in this encounter Care Teams Death Clearance Coordinator Relationship Specialty [place] [address] [facility] [address] [place] [address] PCP - General 11/12/16 03/11/22 documented as of this encounter
--- OUTSIDE RECORDS SUMMARY | 2024-10-11 02:02 | XMS_ITS | Encounter Summary ---
Author Organization [facility] Address [address] [place] [address] Phone Care Team Providers Care Wind Energy Technician Name Role Phone Santino Funk MD Primary Care Provider + Encounter Details Date Type Department Care Team (Late st Contact Info) Description 12/04/2019 2:30 PM CREW BOAT OPERATOR Office [facility]) - [facility] ENT [address] [facility] [address] [place] [address] [place] [address] Saqib Henry MD [address] [place] [address] Substernal thyroid goiter Social History Tobacco Use Types Packs/Day Years Used Date Smoking Tobacco: Former Smokeless Tobacco: Never Alcohol Use Standard Drinks/Week Comments Yes 0 (1 standard drink = 0.6 oz pur e alcohol) PHQ-2 Answer Date Recorded PHQ-2 Score 0 12/12/2018 Sex and Gender Information Value Date Recorded Sex Assigned at Not on file Legal Sex Male 3:25 PM CREW BOAT OPERATOR Gender Identity Not on file Sexual Orientation Not on file documented as of this encounter Progress Notes * Saqib Henry MD - 12/04/2019 2:30 PM CST [employer] [facility] [employer] [facility] Department of Otolaryngology Division of Head and Neck Surgery 12/04/2019 Abrahan Gtz 1944 [phone] Referred by: Dr. Santino Mcgarry Chief Complaint: [...] HERNIA REPAIR 1980 Hiatal Hernia repair ??? LA ABDOMEN SURGERY PROC UNLISTED Hernia Repair - [...] file Gets together: Not on file Attends congregational service: Not on file Active member of [...] substernal total thyroidectomy Saqib Henry MD PhD Diesel Retrofit Installer Attending, Head and Neck Surgery Department of Otolaryngology [facility] [phone] (Clinical nurse Jacquie Hensley RN) Pager [phone] BOAT OPERATOR documented in this encounter Plan of Treatment Upcoming Encounters Date Type Department Care Team (Latest Contact Info) Description 10/23/2024 10:00 AM CREW BOAT OPERATOR Hospital Encounter [facility] Operating Room [address] [place] [address] [place] [address] [id number] 10/23/2024 10:00 AM CREW BOAT OPERATOR - 10/23/2024 1:00 PM CREW BOAT OPERATOR Surgery [facility] Operating Room [address] [place] [address] [place] [address] [id number] ARTHROPLASTY TOTAL KNEE LEFT Scheduled Procedures Name Priority Associated Diagnoses Date/Ti me ARTHROPLASTY TOTAL KNEE left knee osteoarthritis 10/23/2024 10:00 AM CREW BOAT OPERATOR ESOPHAGOGASTRODUODENOSCOPY Dysphagia, unspecified type documented as of this encounter Visit Diagnoses Diagnosis Substernal thyroid goiter Goiter, unspecified documented in this encounter Historical Medications * This list may reflect changes made after this encounter. predniSONE (DELTASONE) 20 mg tablet 11/13/2019 12/14/2019 levoFLOXacin (LEVAQUIN) 500 mg tablet TK 1 T PO ONCE A DAY 11/06/2019 12/14/2019 doxycycline 100 mg tablet TK 1 T PO BID 10/30/2019 12/14/2019 amoxicillin-clav ulanate (AUGMENTIN) 875-125 mg per tablet TK 1 T PO BID TAT 11/13/2019 12/14/2019 Ventolin HFA 90 mcg/actuation inhaler Inhale 2 puffs every 4 (four) hours as needed for wheezing 11/11/2019 09/11/2021 added in this encounter Care Teams Wind Energy Technician Relationship Specialty [place] [address] [facility] [address] PCP - General 11/12/16 03/11/22 documented as of this encounter
--- OUTSIDE RECORDS SUMMARY | 2024-10-11 02:02 | XMS_ITS | Encounter Summary ---
Author Organization [facility] Healthcare Address [address] [place] [address] Care Team Providers Care Courier Delivery Driver Name Role Phone Santino Funk MD Primary Care Provider + Encounter Details Date Type Department Care Team (Late st Contact Info) Description 11/20/[address] [facility] Radiology [address] [place] [address] Clara Brice, RN Social History Tobacco Use Types Packs/Day Years Used Date Smoking Tobacco: Former Smokeless Tobacco: Never Alcohol Use Standard Drinks/Week Comments Yes 0 (1 standard drink = 0.6 oz pur e alcohol) PHQ-2 Answer Date Recorded PHQ-2 Score 0 12/12/2018 Sex and Gender Information Value Date Recorded Sex Assigned at Not on file Legal Sex Male 3:25 PM FINISHING POWDER PRESS OPERATOR Gender Identity Not on file Sexual Orientation Not on file documented as of this encounter Miscellaneous Notes * Telephone Encounter - Clara Brice RN - 11/20/2019 9:44 AM CST Spoke to Jacquie---Pt scheduled 11-27-19 @ 1430 for Lt thyroid nodule bx. Please instruct pt to arriveCAM 3rd flr @ 1400 to register--no prep SHING POWDER PRESS OPERATOR documented in this encounter Plan of Treatment Upcoming Encounters Date Type Department Care Team (Latest Contact Info) Description 10/23/2024 10:00 AM FINISHING POWDER PRESS OPERATOR Hospital Encounter [facility] Operating Room [address] [place] [address] [place] [address] [facility] [address] [place] [address] 10/23/2024 10:00 AM FINISHING POWDER PRESS OPERATOR - 10/23/2024 1:00 PM FINISHING POWDER PRESS OPERATOR Surgery [facility] Operating Room [address] [place] [address] [place] [address] [address] ARTHROPLASTY TOTAL KNEE LEFT Scheduled Procedures Name Priority Associated Diagnoses Date/Ti me ARTHROPLASTY TOTAL KNEE left knee osteoarthritis 10/23/2024 10:00 AM FINISHING POWDER PRESS OPERATOR ESOPHAGOGASTRODUODENOSCOPY Dysphagia, unspecified type documented as of this encounter Visit Diagnoses Not on filedocumented in this encounter Care Teams Courier Delivery Driver Relationship Specialty [place] [address] [facility] [place] [address] PCP - General 11/12/16 03/11/22 documented as of this encounter
--- OUTSIDE RECORDS SUMMARY | 2024-10-11 02:02 | XMS_ITS | Encounter Summary ---
Author Organization [facility] Healthcare Address [address] [place] [address] Care Team Providers Care Manager Of Case Name Role Phone Santino Funk MD Primary Care Provider + Reason for Visit * Reason Comments Abdominal Pain pt reports right upp er abdominal pain. pt states he was here on wednesday and diagnosed with constipation. pt states he used the medications he was given and has only been able to go very little since then Encounter Details Date Type Department Care Team (Late st Contact Info) Description 12/12/2018 4:20 AM [facility] - 12/12/2018 12:41 PM [facility] Emergency [facility] Emergency Department [id number] [id number] [place] [address] [id number] [place] [address] [facility] [address] [place] [address] Drug-induced constipation (Primary Dx) Discharge Disposition: Discharge to home [...] on file Legal Sex Male 3:25 PM ROOMS DIRECTOR Gender Identity Not on file Sexual Orientation Not on file documented as of this encounter Last Filed Vital Signs Vital Sign Reading Time Taken Comments Blood Pressure 157/96 12/12/2018 9:15 AM ROOMS DIRECTOR Pulse 79 12/12/2018 11:00 AM ROOMS DIRECTOR Temperature 36.7 ??C (98 ??F) 12/12/2018 3:49 AM ROOMS DIRECTOR Respiratory Rate 18 12/12/2018 3:49 AM ROOMS DIRECTOR Oxygen Saturation 97% 12/12/2018 11:00 AM ROOMS DIRECTOR Inhaled Oxygen Concentration - - Weight 99.8 kg (220 lb) 12/12/2018 3:49 AM ROOMS DIRECTOR Height 182.9 cm (6') 12/12/2018 3:49 AM ROOMS DIRECTOR Body Mass Index 29.84 12/12/2018 3:49 AM ROOMS DIRECTOR documented in this encounter Discharge Instructions * Attachments The following attachments cannot be sent through Care Everywhere. * Constipation (Adult) (Kazakh) documented in this encounter Medications at Time [...] s Discharge to home or self care armband removed documented in this encounter ED Notes * Alon Manley MD - 12/12/2018 5:55 AM CST HPI Chief Complaint Patient presents with ??? Abdominal Pain pt reports right upper abdominal pain. pt states he was here on wednesday and diagnosed with constipation. pt states he used the medications he was given and has only been able to go very little since then (0557) Patient is a 74-year-old male with a history of asthma, seizures, and GERD presenting to the ED with complains of R sided abd pain for the past 2-3 days. Pt was seen in the ED 2 days ago where he wasdiagnosed with constipation secondary to chronic opioid intake (pt prescribed Oxycodone for chronicknee pain). He was discharged home with mag citrate which he states he took as directed though it only provided minimal relief and pt only passed a small amount of bowels but now feels as though he cannot get food down. He states food feels as though it gets stuck in his epigastric region. No vomiting, fever, or chills. Patient History Patient Active Problem List Diagnosis Date Noted ??? Subchondral insufficiency fracture of condyle of [...] HERNIA REPAIR 1980 Hiatal Hernia repair ??? ME ABDOMEN SURGERY PROC UNLISTED Hernia Repair - [...] Smoker ??? Smokeless tobacco: Never Used Substance Use Topics ??? Alcohol use: Yes ??? Drug use: No Social History Social History Narrative Caffeine use : (Added by KIP Conv) Consumes alcohol : (Added by KIP Cason) Review of Systems Review of Systems Constitutional: Negative for chills and fever. Respiratory: Negative for cough, shortness of breath and wheezing. Cardiovascular: Negative for chest pain and palpitations. Gastrointestinal: Positive for abdominal pain. Negative for diarrhea, nausea and vomiting. Musculoskeletal: Negative for back pain and neck pain. Skin: Negative for rash. Neurological: Negative for dizziness, syncope, weakness and headaches. All other systems reviewed and are negative. Physical Exam ED Triage Vitals [12/12/18 0349] Temp Pulse Resp BP SpO2 36.7 ??C (98 ??F) 68 18 168/97 98 % Temp src Heart Rate Source Patient Position BP Location FiO2 (%) Oral -- -- -- -- Physical Exam Constitutional: He is oriented to person, place, and time. He appears well- developed and well-nourished. No distress. HENT: Head: Normocephalic and atraumatic. Eyes: Conjunctivae and EOM are normal. Neck: Normal range of motion. Neck supple. Cardiovascular: Normal rate, regular rhythm, normal heart sounds and intact distal pulses. Pulmonary/Chest: Effort normal and breath sounds normal. No respiratory distress. Abdominal: Soft. He exhibits no distension. There is no tenderness. Musculoskeletal: Normal range of motion. He exhibits no edema. Neurological: He is alert and oriented to person, place, and time. Skin: Skin is warm and dry. Capillary refill takes less than 2 seconds. Psychiatric: He has a normal mood and affect. Nursing note and vitals reviewed. MDM MDM 74-year-old male history of asthma, seizure, GERD who presents with abdominal pain and constipation Differential includes most likely opiate induced constipation, less likely bowel obstruction Plan Relistor, enema, Dulcolax suppository, these measures unsuccessful consider CT scan to rule out obstruction and potentially admission for GI consultation Drug-induced constipation This note is prepared by Wero Bravo, acting for and in the presence of Dr. Alon Manley MD. I electronically signed this note at 7:07 AM I, Alon Vineet, have personally performed the services described in the documentation , reviewed the documentation, as recorded by the scribe in my presence, and it accurately and completely recordsmy words and actions. Alon Manley MD 12/12/18 0707 S DIRECTOR documented in this encounter Miscellaneous Notes * ED Re-evaluation Note - Arcenio Garcia MD - 12/12/2018 8:07 AM ROOMS DIRECTOR 8:07 AM Patient care assumed from Dr. Manley. Case and findings, including treatment plan, evaluations, consults, and lab/imaging results were discussed. Patient complaining of RUQ pain. Ordered a gallbladder US at this time. 8:44 AM Pre-hypertension/Hypertension: The patient has been informed that they may have pre-hypertension or Hypertension based on a blood pressure reading in the Emergency Department. I recommend that the patient call the primary care provider listed on their discharge instructions or a physician of their choice this week to arrange follow up for further evaluation of possible pre- hypertension orHypertension. 8:45 AM Rechecked patient. Patient had a small BM and is feeling better. Currently awaiting for US results. 9:49 AM Rechecked patient. Patient states his pain has completely resolved and is feeling hungry. 11:15 AM Rechecked patient. Patient has not had another BM yet. I did a rectal exam, which showed no stool impaction. 11:37 AM Discussed the patients case with Dr. Rosa Bacon, patients PCP, who states he will see the patient in office today. 11:48 AM Patient had a large bowel movement here, and is ready to be discharged at this time. Fabiana Kimbrough Iraheta scribed for Arcenio Garcia MD. I electronically signed this note at 11:48 AM on12/12/2018. Arcenio Ramos MD, have personally performed the services described in the documentation , reviewed the documentation, as recorded by the scribe in my presence, and it accurately and completelyrecords my words and actions. Arcenio Garcia MD 12/29/18 7916 documented in this encounter Plan of Treatment Upcoming Encounters Date Type Department Care Team (Latest Contact Info) Description 10/23/2024 10:00 AM ROOMS DIRECTOR Hospital Encounter [facility] Operating Room [address] [place] [address] [place] [address] [id number] 10/23/2024 10:00 AM ROOMS DIRECTOR - 10/23/2024 1:00 PM ROOMS DIRECTOR Surgery [facility] Operating Room [id number] [place] [address] [place] [address] [id number] ARTHROPLASTY TOTAL KNEE LEFT Scheduled Procedures Name Priority Associated Diagnoses Date/Ti me ARTHROPLASTY TOTAL KNEE left knee osteoarthritis 10/23/2024 10:00 AM ROOMS DIRECTOR ESOPHAGOGASTRODUODENOSCOPY Dysphagia, unspecified type documented as of this encounter Procedures Procedure Name Priority Date/Time Associated Diagnosis Comments US GALLBLADDER ED 12/12/2018 9:59 AM ROOMS DIRECTOR EGFR STAT 12/12/2018 9:59 AM ROOMS DIRECTOR DIFFERENTIAL AUTO STAT 12/12/2018 9:5 9 AM ROOMS DIRECTOR CBC WITH AUTO DIFFERENTIAL STAT 12/12/2018 9:59 AM ROOMS DIRECTOR LIPASE STAT 12/12/2018 9:59 AM ROOMS DIRECTOR AMYLASE STAT 12/12/2018 9:59 AM ROOMS DIRECTOR COMPREHENSIVE METABOLIC PANEL STAT 12/12/2018 9:59 AM ROOMS DIRECTOR documented in this encounter Results * US Gallbladder (12/12/2018 9:59 AM ROOMS DIRECTOR) Anatomical Region Laterality Modality Abdomen N/A Ultrasound 12/12/2018 10:0 5 AM ROOMS DIRECTOR Impressions 12/12/2018 10:11 AM ROOMS DIRECTOR 1. No evidence of cholelithiasis or cholecystitis. 2. ??Incidentally noted hepatic cyst. Electronically signed by: Martir Yang M.D. Narrative 12/12/2018 10:11 AM ROOMS DIRECTOR RIGHT UPPER QUADRANT ULTRASOUND DATE: 12/12/2018 10:05 AM HISTORY: RUQ pain, cholecystitis suspected COMPARISON: None. TECHNIQUE: Real-time imaging was obtained of the right upper quadrant. ??Doppler was also performed. FINDINGS: Liver: The liver length measures 13.5 centimeters. ??The parenchymal echogenicity is homogeneous, and there is a 1.9 cm anechoic cyst near the gallbladder fossa. ??There is no intrahepatic biliary dilatation. Gallbladder: The gallbladder wall thickness measures 1.3 mm. Gallstones are not seen. ??There is no pericholecystic fluid. ??The common bile duct caliber measures 6 mm. Pancreas: Not seen because of bowel gas. Right kidney: 8.9 x 4.5 cm. 4.5 cm. There are no renal cysts. ??No hydronephrosis is observed. There is normal color flow at the renal hilum. ??The proximal and mid aorta are not seen well because of bowel gas. Procedure Note Martir Yang IV, MD - 12/12/2018 RIGHT UPPER QUADRANT ULTRASOUND DATE: 12/12/2018 10:05 AM HISTORY: RUQ pain, cholecystitis suspected COMPARISON: None. TECHNIQUE: Real-time imaging was obtained of the right upper quadrant. Doppler was also performed. FINDINGS: Liver: The liver length measures 13.5 centimeters. The parenchymal echogenicity is homogeneous, and there is a 1.9 cm anechoic cyst near the gallbladder fossa. There is no intrahepatic biliary dilatation. Gallbladder: The gallbladder wall thickness measures 1.3 mm. Gallstones are not seen. There is no pericholecystic fluid. The common bile duct caliber measures 6 mm. Pancreas: Not seen because of bowel gas. Right kidney: 8.9 x 4.5 cm. 4.5 cm. There are no renal cysts. No hydronephrosis is observed. There is normal color flow at the renal hilum. The proximal and mid aorta are not seen well because of bowel gas. IMPRESSION: 1. No evidence of cholelithiasis or cholecystitis. 2. Incidentally noted hepatic cyst. Electronically signed by: Martir Yang M.D. Arcenio Garcia MD IMG US PROCEDURES Final Resu lt * eGFR (12/12/2018 9:59 AM ROOMS DIRECTOR) eGFR 64 mL/min/1.7 3 m2 [facility] Comment: Interpretive Data Reference Interval Normal ?>/= 90 mL/min/1.73m2 Mildly decreased* ? 60 - 89 mL/min/1.73m2 Mildly to moderately decreased ?45 - 59 mL/min/1.73m2 Moderately to severely decreased ??30 - 44 mL/min/1.73m2 Severely decreased ?15 - 29 mL/min/1.73m2 Kidney Failure ?< 15 ??mL/min/1.73m2 *Relative to young adult level If -Grenadian multiply value by 1.16. Estimated glomerular filtration rate is determined by the CKD-EPI equation recommended by the National Kidney Foundation (KDIGO 2012 Clinical Practice Guideline for the Evaluation and Management of Chronic Kidney Disease. Kidney Intnl Suppl Oct 2012;3:1). The CKD-EPI equation should not be used for patients with unstable renal function and has not been validated in children and those over 70. Current interpretive data was last reviewed 2016. Blood specimen (specimen) 12/12/2018 9:59 AM ROOMS DIRECTOR 12/12/2018 10:09 AM ROOMS DIRECTOR Narrative [facility] - 12/12/2018 10:31 AM ROOMS DIRECTOR Arcenio Garcia MD LAB BLOOD ORDERABLES Final R esult [facility] [address] Department [place] [address] * (ABNORMAL) Differential, auto (12/12/2018 9:59 AM ROOMS DIRECTOR) Neutrophil abs 5.7 1.7 - 6.5 K/cumm [facility] Imm gran abs 0.0 0.0 - 0.1 K/cumm [facility] Lymphocyte abs 2.8 0.8 - 3.3 K/cumm [facility] Monocyte abs 1.0(H) 0.2 - 0.8 K/cumm [facility] Eosinophil abs 0.1 0.0 - 0.5 K/cumm [facility] Basophil abs 0.1 0.0 - 0.1 K/cumm [facility] Neutrophil pct 58.8 % [facility] Comment: Interpretive Data Percent cell count reference ranges are not reported, since discordance with absolute values may lead to misinterpretation of CBC data. Current Interpretive Data was last revised on 2018. Imm gran pct 0.5 % [facility] Comment: Interpretive Data Percent cell count reference ranges are not reported, since discordance with absolute values may lead to misinterpretation of CBC data. Current Interpretive Data was last revised on 2018. Lymphocyte pct 28.5 % [facility] Comment: Interpretive Data Percent cell count reference ranges are not reported, since discordance with absolute values may lead to misinterpretation of CBC data. Current Interpretive Data was last revised on 2018. Monocyte pct 10.2 % [facility] Comment: Interpretive Data Percent cell count reference ranges are not reported, since discordance with absolute values may lead to misinterpretation of CBC data. Current Interpretive Data was last revised on 2018. Eosinophil pct 1.3 % [facility] Comment: Interpretive Data Percent cell count reference ranges are not reported, since discordance with absolute values may lead to misinterpretation of CBC data. Current Interpretive Data was last revised on 2018. Basophil pct 0.7 % [facility] Comment: Interpretive Data Percent cell count reference ranges are not reported, since discordance with absolute values may lead to misinterpretation of CBC data. Current Interpretive Data was last revised on 2018. Blood specimen (specimen) 12/12/2018 9:59 AM ROOMS DIRECTOR 12/12/2018 10:03 AM ROOMS DIRECTOR Narrative [facility] - 12/12/2018 10:11 AM ROOMS DIRECTOR Arcenio Garcia MD LAB BLOOD ORDERABLES Final R esult Performing Organization Address City/[facility]/ZIP Co de Phone Number [facility] FISHER [address] [facility] [place] [address] * Lipase (12/12/2018 9:59 AM ROOMS DIRECTOR) Pathologist [facility] Lipase 21 10 - 99 Units/L [facility] Blood specimen (specimen) 12/12/2018 9:59 AM ROOMS DIRECTOR 12/12/2018 10:03 AM ROOMS DIRECTOR Narrative [facility] - 12/12/2018 10:31 AM ROOMS DIRECTOR Arcenio Garcia MD LAB BLOOD ORDERABLES Final R esult Performing Organization Address [facility] de Phone Number MARVIN FISHER [address] [place] [address] * (ABNORMAL) CBC with auto differential (12/12/2018 9:59 AM ROOMS DIRECTOR) Pathologist [facility] WBC 9.6 3.8 - 9.9 K/cumm [facility] Hgb 16.4 13.0 - 17.5 g/dL [facility] Hct 49.4 38.9 - 50.3 % [facility] Plt 248 150 - 400 K/cumm [facility] MPV 10.1 9.1 - 12.3 fL [facility] RBC 4.89 4.30 - 5.80 M/cumm [facility] MCV 101.0(H) 81.3 - 96.4 fL [facility] MCH 33.5(H) 27.1 - 33.3 pg [facility] MCHC 33.2 32.3 - 35.7 g/dL [facility] RDW CV 13.0 11.1 - 14.9 % [facility] RDW SD 48.8(H) 35.7 - 48.1 fL [facility] NRBC abs 0.00 0.00 - 0.01 K/cumm [facility] Blood specimen (specimen) 12/12/2018 9:59 AM ROOMS DIRECTOR 12/12/2018 10:03 AM ROOMS DIRECTOR Narrative [facility] - 12/12/2018 10:11 AM ROOMS DIRECTOR us Arcenio Garcia MD LAB BLOOD ORDERABLES Final R esult [facility] [address] [place] [address] * (ABNORMAL) Comprehensive metabolic panel (12/12/2018 9:59 AM ROOMS DIRECTOR) Sodium 136 135 - 145 mmol/L [facility] Potassium, pl 5.2(H) 3.3 - 4.9 mmol/L [facility] Chloride 100 97 - 110 mmol/L [facility] CO2 29 22 - 32 mmol/L [facility] Anion gap 7 2 - 15 mmol/L [facility] BUN 17 8 - 25 mg/dL [facility] Creatinine 1.12 0.80 - 1.30 mg/dL [facility] Glucose [...] interpretive data was last revised 2017. Calcium 9.2 8.5 - 10.3 mg/dL [facility] Bilirubin, total 0.8 0.1 - 1.2 mg/dL [facility] Protein, pl 7.3 6.5 - 8.5 g/dL [facility] Albumin 3.6 3.5 - 5.0 g/dL [facility] Alk phos 129 40 - 130 Units/L [facility] ALT 33 7 - 55 Units/L [facility] AST 22 10 - 50 Units/L [facility] Blood specimen (specimen) 12/12/2018 9:59 AM ROOMS DIRECTOR 12/12/2018 10:03 AM ROOMS DIRECTOR Narrative [facility] - 12/12/2018 10:31 AM ROOMS DIRECTOR Arcenio Garcia MD LAB BLOOD ORDERABLES Final R esult Performing Organization Address [facility]/ZIP Co de Phone Number MARVIN FISHER [address] [place] [address] * Amylase (12/12/2018 9:59 AM ROOMS DIRECTOR) Amylase 42 30 - 99 Units/L [facility] Blood specimen (specimen) 12/12/2018 9:59 AM ROOMS DIRECTOR 12/12/2018 10:03 AM ROOMS DIRECTOR Narrative [facility] - 12/12/2018 10:31 AM ROOMS DIRECTOR Arcenio Garcia MD LAB BLOOD ORDERABLES Final R esult Performing Organization Address [facility] [place] Co de Phone Number MARVIN FISHER [address] [place] [address] documented in this encounter Visit Diagnoses Diagnosis Drug-induced constipation- Primary Other constipation documented in this encounter Administered Medications Inactive Administered Medications - up to 3 most recent administrations Medication Order MAR Action Action Date Dose Rate Site acetaminophen (TYLENOL) tablet 1,000 mg 1,000 mg, oral, Once, On Wed12/12/18 at 0912, For 1 dose Given 12/12/2018 9:30 AM ROOMS DIRECTOR 1,000 mg ampicillin-sulbactam (UNASYN) 3 g in sodium chloride 0.9% 100 mL IVPB 3 g, intravenous, at 200 mL/hr, Administer over 30 Minutes, Once, On Wed12/12/18 at 0816, For 1 dose, Mini-Bag Plus bag, Indications: Abdominal/Pelvic InfectionIndications:A bdominal/Pelvic Infection New Bag 12/12/2018 8:46 AM ROOMS DIRECTOR 3 g 200 mL/hr bisacodyl (DULCOLAX) suppository 10 mg 10 mg, rectal, Once, On Wed12/12/18 at 0706, For 1 dose, Indications: constipationIndication s:constipation Given 12/12/2018 7:47 AM ROOMS DIRECTOR 10 mg lactulose (CEPHULAC) packet 20 g 20 g, oral, Daily, First dose on Wed12/12/18 at 1044 Given 12/12/2018 11:30 AM ROOMS DIRECTOR 20 g methylnaltrexone (RELISTOR) injection 12 mg 12 mg, subcutaneous, Once, On Wed12/12/18 at 0609, For 1 dose, Indications: Opioid-Induced ConstipationIndication s:Opioid-Induced Constipation Given 12/12/2018 6:55 AM ROOMS DIRECTOR 12 mg Right Upper Buttock mineral oil (FLEET MINERAL OIL) enema 1 enema 1 enema, rectal, Once, On Wed12/12/18 at 0706, For 1 dose, Indications: constipationIndication s:constipation Given 12/12/2018 7:48 AM ROOMS DIRECTOR 1 enema senna-docusate (PERICOLACE) 8.6-50 mg per tablet 1 tablet 1 tablet, oral, Once, On Wed12/12/18 at 0706, For 1 dose Given 12/12/2018 8:00 AM ROOMS DIRECTOR 1 tablet documented in this encounter Active and Recently Administered Medications Times are shown in ROOMS DIRECTOR. Scheduled Medication Order 12/10/2018 12/11/2018 12/12/2018 acetaminophen (TYLENOL) tablet 1,000 mg (COMPLETED) 1,000 mg, oral, Once, On Wed12/12/18 at 0912, For 1 dose 0930 (Given - Provid er: Charmaine Severino RN) ampicillin-sulbactam (UNASYN) 3 g in sodium chloride 0.9% 100 mL IVPB (COMPLETED) 3 g, intravenous, at 200 mL/hr, Administer over 30 Minutes, Once, On Wed12/12/18 at 0816, For 1 dose, Mini-Bag Plus bag, Indications: Abdominal/Pelvic Infection 0846 (New Bag - Prov ider: Charmaine Severino RN)0927 (Stopped - Provider: Charmaine Severino RN) bisacodyl (DULCOLAX) suppository 10 mg (COMPLETED) 10 mg, rectal, Once, On Wed12/12/18 at 0706, For 1 dose, Indications: constipation 0747 (Given - Provid er: Charmaine Severino RN) lactulose (CEPHULAC) packet 20 g 20 g, oral, Daily, First dose on Wed12/12/18 at 1044 1130 (Given - Provid er: Charmaine Severino RN) methylnaltrexone (RELISTOR) injection 12 mg (COMPLETED) 12 mg, subcutaneous, Once, On Wed12/12/18 at 0609, For 1 dose, Indications: Opioid-Induced Constipation 0655 (Given - Provid er: Charmaine Severino RN) mineral oil (FLEET MINERAL OIL) enema 1 enema (COMPLETED) 1 enema, rectal, Once, On Wed12/12/18 at 0706, For 1 dose, Indications: constipation 0748 (Given - Provid er: Charmaine Severino RN) senna-docusate (PERICOLACE) 8.6-50 mg per tablet 1 tablet (COMPLETED) 1 tablet, oral, Once, On Wed12/12/18 at 0706, For 1 dose 0800 (Given - Provid er: Charmaine Severino RN) documented in this encounter Care Teams Manager Of Case Relationship Specialty [place] [address] [address] [address] PCP - General 11/12/16 03/11/22 documented as of this encounter
--- OUTSIDE RECORDS SUMMARY | 2024-10-11 02:02 | XMS_ITS | Encounter Summary ---
Author Organization Formerly [facility] Address [address] [place] [address] Care Team Providers Care Traveling Sales Representative Name Role Phone Santino Funk MD Primary Care Provider + Reason for Referral * ENT (Routine) - Closed Specialty Diagnoses / Procedures Referred By Dillan mccallum Referred To Contact Radiology Diagnoses Thyroid nodule Procedures US Guided Thyroid Fine Needle Aspiration 1st Lesion Consult to Radiology for Biopsy Saqib Henry MD [address] [address] Phone: tel: fax: [address] [phone] Referral ID Status Reason Start Date Expiration Date Visits Re quested Visits Authorized [id number] Closed 11/20/2019 05/31/2021 1 1 ATIONS ANALYSIS TECHNICIAN Reason for Visit * ENT (Routine) - Closed Specialty Diagnoses / Procedures Referred By Dillan mccallum Referred To Contact Radiology Diagnoses Thyroid nodule Procedures US Guided Thyroid Fine Needle Aspiration 1st Lesion Consult to Radiology for Biopsy Saqib Henry MD [address] [place] [address] Phone: tel: fax: [address] [place] [address] Referral ID Status Reason Start Date Expiration Date Visits Re quested Visits Authorized [id number] Closed 11/20/2019 05/31/2021 1 1 Encounter Details Date Type Department Care Team (Latest Contact Info) Description 11/27/2019 1:39 PM EMANATIONS ANALYSIS TECHNICIAN - 11/27/2019 11:59 PM EMANATIONS ANALYSIS TECHNICIAN Hospital Encounter [facility] [address] [place] [address] Saqib Henry MD [address] [place] [address] Thyroid nodule Discharge Disposition: Discharge to home or [...] on file Legal Sex Male 3:25 PM EMANATIONS ANALYSIS TECHNICIAN Gender Identity Not on file Sexual Orientation Not on file documented as of this encounter Medications at Time of Discharge amoxicillin-clavulan ate (AUGMENTIN) 875-125 mg per tablet TK 1 T PO BID TAT 11/13/2019 0 ciprofloxacin (CIPRO) 500 mg tablet TK 1 [...] and drink daily. 85 g 12/10/2018 1 predniSONE (DELTASONE) 20 mg tablet 11/13/2019 0 sildenafil, antihypertensive, (REVATIO) 20 mg tabletIndications:er ectile dysfunction Take 20 mg by mouth daily as needed 5 11/11/2018 1 temazepam (RESTORIL) 15 mg capsuleIndications:I nsomnia Take 15 mg by mouth nightly as needed for sleep 01/21/2018 0 Ventolin HFA 90 mcg/actuation inhaler Inhale 2 puffs every 4 (four) hours as needed for wheezing 11/11/2019 1 documented as of this encounter Discharge Disposition Disposition Code Departure Means Destination Discharge to home or self care documented in this encounter Miscellaneous Notes * Post-Procedure Note - Latisha Overton MD - 11/27/2019 2:30 PM EMANATIONS ANALYSIS TECHNICIAN Radiology Brief Post Procedure Note Attending: Dr. Javier Erosion Control Specialist: Dr. Overton Sedation/Anesthesia: Local Pre-Op/Pre-Procedure Diagnosis: left thyroid nodule Post-Op/Post-Procedure Diagnosis: same Procedure Performed: left inf thyroid nodule FNA Procedure Findings: left inf thyroid nodule, successful FNA Complications: None Estimated Blood Loss: None Specimens: 6 FNA speciments Condition: Stable Full report to follow. ATIONS ANALYSIS TECHNICIAN documented in this encounter Plan of Treatment Upcoming Encounters Date Type Department Care Team (Latest Contact Info) Description 10/23/2024 10:00 AM EMANATIONS ANALYSIS TECHNICIAN Hospital Encounter [facility] [address] [place] [address] [place] [address] [address] 10/23/2024 10:00 AM EMANATIONS ANALYSIS TECHNICIAN - 10/23/2024 1:00 PM EMANATIONS ANALYSIS TECHNICIAN Surgery [facility] [address] [place] [address] [place] [address] [address] ARTHROPLASTY TOTAL KNEE LEFT Scheduled Procedures Name Priority Associated Diagnoses Date/Ti me ARTHROPLASTY TOTAL KNEE left knee osteoarthritis 10/23/2024 10:00 AM EMANATIONS ANALYSIS TECHNICIAN ESOPHAGOGASTRODUODENOSCOPY Dysphagia, unspecified type documented as of this encounter Procedures Procedure Name Priority Date/Time Associated Diagnosis Comments US GUIDED THYROID FINE NEEDLE ASPIRATION 1ST LESION Schedule Routine, Read Routine (OP Routine) 11/27/2019 3:07 PM EMANATIONS ANALYSIS TECHNICIAN Thyroid nodule CYTOLOGY Routine 11/27/2019 2:46 PM EMANATIONS ANALYSIS TECHNICIAN Thyroid nodule documented in this encounter Results * US Guided Thyroid Fine Needle Aspiration 1st Lesion (11/27/2019 3:07 PM EMANATIONS ANALYSIS TECHNICIAN) Anatomical Region Laterality Modality Thyroid N/A Ultrasound 11/27/2019 3:22 PM EMANATIONS ANALYSIS TECHNICIAN Impressions 11/27/2019 3:29 PM EMANATIONS ANALYSIS TECHNICIAN 1. Successful thyroid biopsy of the low suspicion left thyroid nodule. Dictated by: Latisha Overton M.D. The radiology attending physician has personally reviewed this study, and had reviewed and/or edited this written report and agrees with it. Electronically signed by: Dima Javier M.D. Narrative 11/27/2019 3:29 PM EMANATIONS ANALYSIS TECHNICIAN EXAMINATION: ULTRASOUND-GUIDED THYROID FINE NEEDLE ASPIRATION HISTORY: ??75-year-old man with thyroid nodules presents for fine-needle aspiration of a left inferior thyroid nodule. COMPARISON: ??11/17/2019 FINDINGS: Biopsy #: 1 Size: 4.7 cm craniocaudal x 5.0 cm transverse x 3.9 cm AP. Maximum Size: 5.0 cm Location: Left lower Heterogeneous composition, mixed solid and cystic, isoechoic with areas of hypoechoic tissue. FINE NEEDLE ASPIRATION: The procedure for ultrasound-guided FNA and its benefits and risks were explained to the patient. Risks were explained to include, but not be limited to, hemorrhage, infection, injury to adjacent organs, ??non-diagnostic specimen and adverse reaction to medications administered. The patient voiced understanding and wished to proceed and signed the consent form. A site was localized for fine needle aspiration. The site was prepped and draped in the usual manner. 4 mL of 1% Lidocaine was used for local anesthesia. 6 passes were made with 25 gauge needles into the lesion. Appropriate needle localization was documented with continuous sonographic guidance. The fine needle aspirates were handed to the can pusher present during the procedure. Please refer to the dictated cytology report for final interpretation. The patient's skin was cleaned and dressed. ??The patient tolerated the procedure well without immediate complication. Dr. Dima Javier M.D., the attending radiologist, was present from the beginning to the end of the procedure. Dr. Latisha Overton M.D. performed the biopsy. Procedure Note Dima Javier MD - 11/27/2019 EXAMINATION: ULTRASOUND-GUIDED THYROID FINE NEEDLE ASPIRATION HISTORY: 75-year-old man with thyroid nodules presents for fine-needle aspiration of a left inferior thyroid nodule. COMPARISON: 11/17/2019 FINDINGS: Biopsy #: 1 Size: 4.7 cm craniocaudal x 5.0 cm transverse x 3.9 cm AP. Maximum Size: 5.0 cm Location: Left lower Heterogeneous composition, mixed solid and cystic, isoechoic with areas of hypoechoic tissue. FINE NEEDLE ASPIRATION: The procedure for ultrasound-guided FNA and its benefits and risks were explained to the patient. Risks were explained to include, but not be limited to, hemorrhage, infection, injury to adjacent organs, non-diagnostic specimen and adverse reaction to medications administered. The patient voiced understanding and wished to proceed and signed the consent form. A site was localized for fine needle aspiration. The site was prepped and draped in the usual manner. 4 mL of 1% Lidocaine was used for local anesthesia. 6 passes were made with 25 gauge needles into the lesion. Appropriate needle localization was documented with continuous sonographic guidance. The fine needle aspirates were handed to the can pusher present during the procedure. Please refer to the dictated cytology report for final interpretation. The patient's skin was cleaned and dressed. The patient tolerated the procedure well without immediate complication. Dr. Dima Javier M.D., the attending radiologist, was present from the beginning to the end of the procedure. Dr. Latisha Overton M.D. performed the biopsy. IMPRESSION: 1. Successful thyroid biopsy of the low suspicion left thyroid nodule. Dictated by: Latisha Overton M.D. The radiology attending physician has personally reviewed this study, and had reviewed and/or edited this written report and agrees with it. Electronically signed by: Dima Javier M.D. Result [facility] Nikhil Henry MD [facility] PROCEDURES Krystina l Result * Cytology (11/27/2019 2:46 PM EMANATIONS ANALYSIS TECHNICIAN) Fine needle aspirate (Thyroid Gland (Cytology)) 11/27/2019 2:54 PM EMANATIONS ANALYSIS TECHNICIAN Narrative PATHOLOGY LOCATED WITHIN [facility] - 11/29/2019 11:17 AM EMANATIONS ANALYSIS TECHNICIAN EPIC results best viewed via link to PDF [facility] N[facility] [place] [address] CYTOPATHOLOGY REPORT FINAL Patient Name: ?? GUNJAN GTZ Gender: ??M : ??1944 (Age: 75) Address: ??[address] [place] [address] [address], [place], [place] ??[address] Hospital #: ??[id number] Taken:11/27/2019 Received:11/27/2019 Reported: 11/29/2019 Patient Type: LOCATED WITHIN [facility] Ancillary ?? Service: Radiology Location: [facility] Physician(s): ??MD Saqib Benjamin M.D., PH.D. FINAL DIAGNOSIS A. ??Thyroid, left inferior lobe, ultrasound-guided fine needle aspiration: ? - Benign sxj/11/28/2019 15:02 By this signature, I attest that the above diagnosis is based upon my personal examination of the slides(and/or other material indicated in the diagnosis). Carroll Bee, DO Report Electronically Reviewed and Signed Out By ??Carroll Bee DO 11/29/2019 11:17:14 Kathi Siddiqi M.S.,CT(ASCP) Gross Description A. ??Thyroid, left inferior lobe, ultrasound-guided fine needle aspiration: ??6 Pap stained smear(s) and 6 Diff-Quik stained smear(s). ??1 ThinPrep prepared from needle rinse tube. ??Aspirated by clinician. ??(cd) Clinical Diagnosis and History Thyroid nodule [E04.1] REPORT IMAGES AND SCANNED DOCUMENTS, IF INCLUDED, ONLY VIEWABLE IN PDF VERSION OF REPORT The performance characteristics of some immunohistochemical stains, in-situ hybridization and fluorescence in-situ hybridization tests and immunophenotyping by flow cytometry cited in this report (if any) were determined by the Surgical Pathology Department at [facility] as part of an ongoing quality management nurse program and in compliance with federally mandated [...] following disclaimer be attached to the report: ??This test was developed and its performance characteristics determined by the Surgical Pathology Department of [facility]. ??It has not been cleared or approved by the U. S. Food and Drug Administration. Saqib Henry MD LAB CYTOLOGY ORDERABLE S Final Result PATHOLOGY [facility] 3rd Floor [place], [place] [phone] documented in this encounter Visit Diagnoses Diagnosis Thyroid nodule Nontoxic uninodular goiter documented in this encounter Administered Medications Inactive Administered Medications - up to 3 most recent administrations Medication Order MAR Action Action Date Dose Rate Site lidocaine (XYLOCAINE) 10 mg/mL (1 %) injection Code/trauma/sedation medication, Starting on Wed11/27/19 at 1450, Intra-Procedure (IR), Indications: Administration of Local AnesthesiaIndications:Admini stration of Local Anesthesia Given 11/27/2019 2:50 PM EMANATIONS ANALYSIS TECHNICIAN 4 mL Other (Comment) Given 11/27/2019 2:50 PM EMANATIONS ANALYSIS TECHNICIAN 4 mL Ot her (Comment) documented in this encounter Care Teams Traveling Sales Representative Relationship Specialty [place] [address] [facility] [place] [address] PCP - General 11/12/16 03/11/22 documented as of this encounter
--- OUTSIDE RECORDS SUMMARY | 2024-10-11 02:02 | XMS_ITS | Encounter Summary ---
Author Organization [facility] Address [address] [place] [address] Phone Care Team Providers Care Log Brander Name Role Phone Santino Funk MD Primary Care Provider + Reason for Referral * ENT (Routine) - Closed Specialty Diagnoses / Procedures Referred By Dillan mccallum Referred To Contact Radiology Diagnoses Thyroid nodule Procedures US Guided Thyroid Fine Needle Aspiration 1st Lesion Consult to Radiology for Biopsy Saqib Henry MD [address] [place] [address] Phone: tel: fax: [address] [phone] Referral ID Status Reason Start Date Expiration Date Visits Re quested Visits Authorized [id number] Closed 11/20/2019 05/31/2021 1 1 GRINDER TENDER Encounter Details Date Type Department Care Team (Late st Contact Info) Description 11/20/2019 Orders Only [facility] [address] [facility] 11th [place] [address] [place] [id number] Saqib Henry MD [address] [place] [address] Thyroid nodule (Primary Dx) Social History Tobacco Use Types Packs/Day Years Used Date Smoking Tobacco: Former Smokeless Tobacco: Never Alcohol Use Standard Drinks/Week Comments Yes 0 (1 standard drink = 0.6 oz pur e alcohol) PHQ-2 Answer Date Recorded PHQ-2 Score 0 12/12/2018 Sex and Gender Information Value Date Recorded Sex Assigned at Not on file Legal Sex Male 3:25 PM MEAL GRINDER TENDER Gender Identity Not on file Sexual Orientation Not on file documented as of this encounter Plan of Treatment Upcoming Encounters Date Type Department Care Team (Latest Contact Info) Description 10/23/2024 10:00 AM MEAL GRINDER TENDER Hospital Encounter [facility] Operating Room [address] [place] [address] [place] [address] [address] 10/23/2024 10:00 AM MEAL GRINDER TENDER - 10/23/2024 1:00 PM MEAL GRINDER TENDER Surgery [facility] Operating Room [address] [place] [address] [place] [address] [id number] ARTHROPLASTY TOTAL KNEE LEFT Scheduled Procedures Name Priority Associated Diagnoses Date/Ti me ARTHROPLASTY TOTAL KNEE left knee osteoarthritis 10/23/2024 10:00 AM MEAL GRINDER TENDER ESOPHAGOGASTRODUODENOSCOPY Dysphagia, unspecified type documented as of this encounter Results * US Guided Thyroid Fine Needle Aspiration 1st Lesion (11/27/2019 3:07 PM MEAL GRINDER TENDER) Anatomical Region Laterality Modality Thyroid N/A Ultrasound 11/27/2019 3:22 PM MEAL GRINDER TENDER Impressions 11/27/2019 3:29 PM MEAL GRINDER TENDER 1. Successful thyroid biopsy of the low suspicion left thyroid nodule. Dictated by: Latisha Overton M.D. The radiology attending physician has personally reviewed this study, and had reviewed and/or edited this written report and agrees with it. Electronically signed by: Dima Javier M.D. Narrative 11/27/2019 3:29 PM MEAL GRINDER TENDER EXAMINATION: ULTRASOUND-GUIDED THYROID FINE NEEDLE ASPIRATION HISTORY: [...] fine needle aspirates were handed to the customer manager present during the procedure. Please refer to [...] fine needle aspirates were handed to the customer manager present during the procedure. Please refer to [...] it. Electronically signed by: Dima Javier M.D. [facility] Nikhil Henry MD [facility] PROCEDURES Krystina l Result documented in this encounter Visit Diagnoses Diagnosis Thyroid nodule- Primary Nontoxic uninodular goiter Thyroid nodule Nontoxic uninodular goiter documented in this encounter Care Teams Log Brander Relationship Specialty [place] [address] [address] PCP - General 11/12/16 03/11/22 documented as of this encounter
--- OUTSIDE RECORDS SUMMARY | 2024-10-11 02:02 | XMS_ITS | Encounter Summary ---
Author Organization [facility] Facility Care Team Providers Care Leasing Consultant Name Role Phone Santino Funk MD Primary Care Provider + Encounter Details Date Type Department Care Team (Latest Contact Info) Description 12/12/2018 Travel Social History Tobacco Use Types Packs/Day Years Used Date Smoking Tobacco: Former Smokeless Tobacco: Never Alcohol Use Standard Drinks/Week Comments Yes 0 (1 standard drink = 0.6 oz pur e alcohol) PHQ-2 Answer Date Recorded PHQ-2 Score 0 12/12/2018 Sex and Gender Information Value Date Recorded Sex Assigned at Not on file Legal Sex Male 3:25 PM DATA ENTRY CLERK Gender Identity Not on file Sexual Orientation Not on file documented as of this encounter Plan of Treatment Upcoming Encounters Date Type Department Care Team (Latest Contact Info) Description 10/23/2024 10:[address] [facility] Hospital Encounter [facility] Operating Room [address] [place] [address] [place] [address] [address] 10/23/2024 10:00 AM DATA ENTRY CLERK - 10/23/2024 1:[address] [facility] Surgery [facility] Operating Room [address] [place] [address] [place] [address] [address] ARTHROPLASTY TOTAL KNEE LEFT Scheduled Procedures Name Priority Associated Diagnoses Date/Ti me ARTHROPLASTY TOTAL KNEE left knee osteoarthritis 10/23/2024 10:00 AM DATA ENTRY CLERK ESOPHAGOGASTRODUODENOSCOPY Dysphagia, unspecified type documented as of this encounter Visit Diagnoses Not on filedocumented in this encounter Care Teams Leasing Consultant Relationship Specialty [place] [address] [address] [facility] [place] [address] PCP - General 11/12/16 03/11/22 documented as of this encounter
--- OUTSIDE RECORDS SUMMARY | 2024-10-11 02:02 | XMS_ITS | Encounter Summary ---
Author Organization [facility] Facility Care Team Providers Care Associate Faculty Name Role Phone Santino Funk MD Primary Care Provider + Encounter Details Date Type Department Care Team (Latest Contact Info) Description 12/14/2019 Travel Social History Tobacco Use Types Packs/Day Years Used Date Smoking Tobacco: Former Cigarettes 1 966 - 7560 Smokeless Tobacco: Never Alcohol Use Standard Drinks/Week Comments Yes 1 (1 standard drink = 0.6 oz pur e alcohol) PHQ-2 Answer Date Recorded PHQ-2 Score 0 12/12/2018 Sex and Gender Information Value Date Recorded Sex Assigned at Not on file Legal Sex Male 3:25 PM DRAWING BOX TENDER Gender Identity Not on file Sexual Orientation Not on file documented as of this encounter Plan of Treatment Upcoming Encounters Date Type Department Care Team (Latest Contact Info) Description 10/23/2024 10:00 AM [facility] Hospital Encounter [facility] Operating Room [address] [place] [address] [place] [address] [address] 10/23/2024 10:00 AM DRAWING BOX TENDER - 10/23/2024 1:00 PM [facility] Surgery [facility] Operating Room [address] [place] [address] [place] [address] [address] ARTHROPLASTY TOTAL KNEE LEFT Scheduled Procedures Name Priority Associated Diagnoses Date/Ti me ARTHROPLASTY TOTAL KNEE left knee osteoarthritis 10/23/2024 10:00 AM DRAWING BOX TENDER ESOPHAGOGASTRODUODENOSCOPY Dysphagia, unspecified type documented as of this encounter Visit Diagnoses Not on filedocumented in this encounter Care Teams Associate Faculty Relationship Specialty [place] [address] [address] [facility] [place] [address] PCP - General 11/12/16 03/11/22 documented as of this encounter
--- OUTSIDE RECORDS SUMMARY | 2024-10-11 02:02 | XMS_ITS | Encounter Summary ---
Author Organization [facility] Facility Care Team Providers Care Master Planner Name Role Phone Santino Funk MD Primary Care Provider + Encounter Details Date Type Department Care Team (Latest Contact Info) Description 12/28/2019 Travel Social History Tobacco Use Types Packs/Day Years Used Date Smoking Tobacco: Former Cigarettes 1 966 - 1966 Smokeless Tobacco: Never Alcohol Use Standard Drinks/Week Comments Yes 1 (1 standard drink = 0.6 oz pur e alcohol) PHQ-2 Answer Date Recorded PHQ-2 Score 0 12/12/2018 Sex and Gender Information Value Date Recorded Sex Assigned at Not on file Legal Sex Male 3:25 PM NOTE TAKER Gender Identity Not on file Sexual Orientation [...] (Latest Contact Info) Description 10/23/2024 10:00 AM NOTE TAKER Hospital Encounter [facility] Operating Room [address] [place] [address] [place] [address] [id number] 10/23/2024 10:00 AM NOTE TAKER - 10/23/2024 1:00 PM NOTE TAKER Surgery [facility] Operating Room [address] [place] [address] [place] [address] [address] [facility] [address] [place] [address] ARTHROPLASTY TOTAL KNEE LEFT Scheduled Procedures Name Priority Associated Diagnoses Date/Ti me ARTHROPLASTY TOTAL KNEE left knee osteoarthritis 10/23/2024 10:00 AM NOTE TAKER ESOPHAGOGASTRODUODENOSCOPY Dysphagia, unspecified type documented as of this encounter Visit Diagnoses Not on filedocumented in this encounter Care Teams Master Planner Relationship Specialty [place] [address] [address] [facility] [address] [place] [address] PCP - General 11/12/16 03/11/22 documented as of this encounter
--- OUTSIDE RECORDS SUMMARY | 2024-10-11 02:02 | XMS_ITS | Encounter Summary ---
Author Organization [facility] Address [address] [place] [address] Care Team Providers Care Loss Prevention Consultant Name Role Phone Santino Funk MD Primary Care Provider + Reason for Referral * Diagnostic Imaging (Routine) - Closed Specialty Diagnoses / Procedures Referred By Contac t Referred To Contact Radiology Diagnoses Pulmonary fibrosis, unspecified (HCC) Procedures CT Chest WO Contrast Santino Funk MD Phone: tel: fax: [address] [phone] Referral ID Status Reason Start Date Expiration Date Visits Re quested Visits Authorized [id number] Closed 11/07/2019 05/18/2021 1 1 HER EXAMINER Reason for Visit * Diagnostic Imaging (Routine) - Closed Specialty Diagnoses / Procedures Referred By Contac t Referred To Contact Radiology Diagnoses Pulmonary fibrosis, unspecified (HCC) Procedures CT Chest WO Contrast Santino Funk MD Phone: tel: fax: [address] [phone] Referral ID Status Reason Start Date Expiration Date Visits Re quested Visits Authorized [id number] Closed 11/07/2019 05/18/2021 1 1 Encounter Details Date Type Department Care Team (Latest Contact Info) Description 11/09/2019 10:32 AM VOUCHER EXAMINER - 11/09/2019 11:59 PM VOUCHER EXAMINER Hospital Encounter [facility] Imaging and Radiology [address] [place] [address] [place] [address] [facility] [place] [address] Pulmonary fibrosis, unspecified (CMS/HCC) Discharge Disposition: Discharge to home or self [...] on file Legal Sex Male 3:25 PM VOUCHER EXAMINER Gender Identity Not on file Sexual Orientation [...] (Latest Contact Info) Description 10/23/2024 10:00 AM [facility] Hospital Encounter [facility] Operating Room [address] [place] [id number] [place] [address] [address] 10/23/2024 10:00 AM VOUCHER EXAMINER - 10/23/2024 1:00 PM [facility] Surgery [facility] Operating Room [address] [place] [id number] [place] [id number] [address] ARTHROPLASTY TOTAL KNEE LEFT Scheduled Procedures Name Priority Associated Diagnoses Date/Ti me ARTHROPLASTY TOTAL KNEE left knee osteoarthritis 10/23/2024 10:00 AM VOUCHER EXAMINER ESOPHAGOGASTRODUODENOSCOPY Dysphagia, unspecified type documented as of this encounter Procedures Procedure Name Priority Date/Time Associated Diagnosis Comments CT CHEST WO CONTRAST Schedule Routine, Read Routine (OP Routine) 11/09/2019 11:14 AM VOUCHER EXAMINER Pulmonary fibrosis, unspecified (CMS/HCC) documented in this encounter Results * CT Chest WO Contrast (11/09/2019 11:14 AM VOUCHER EXAMINER) Anatomical Region Laterality Modality Body N/A Computed Tomogra phy 11/09/2019 2:04 PM VOUCHER EXAMINER Impressions 11/09/2019 2:26 PM VOUCHER EXAMINER LEFT LUNG VOLUME LOSS WITH DIAPHRAGMATIC ELEVATION AND LEFT BASAL SUBSEGMENTAL ATELECTASIS. POSTOPERATIVE CHANGE OF THE GE JUNCTION WITH SMALL HIATAL HERNIA. 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 RECOMMEND ULTRASOUND. NO ACUTE THORACIC PATHOLOGY. Electronically signed by: Vijaya Alegre M.D. Narrative 11/09/2019 2:26 PM VOUCHER EXAMINER Examination: CT CHEST WO CONTRAST Date: 11/09/2019 11:00 AM Clinical History: Pulmonary fibrosis, unspecified. Technique: Computed tomographic images of the chest were obtained in the axial plane without the administration of contrast. Coronal reformatted images were performed. Comparison: none Findings: Normal heart size seen without pericardial effusion. ??Tortuous aorta with 3.4 cm ectasia of the mid ascending level and mild aortic valvular calcification is noted. ??Mild coronary artery calcification is present along the LAD. ??No mediastinal nor hilar lymphadenopathy identified in limitations of unenhanced CT. ??Enlarged thyroid with substernal extension and hypodense nodules measuring up to 4 x 3 cm on the left are partially imaged . ??A small hiatal hernia with adjacent clips extend to the GE junction noted. Volume loss of the left hemithorax with elevated left hemidiaphragm is seen with left posterior medial basal opacities consistent with subsegmental atelectasis. ??There is no pulmonary consolidation or effusion. ??No septal thickening, traction bronchiectasis, nor honeycombing is seen to suggest interstitial lung disease . ??There is no mosaic attenuation suggesting air trapping. ??Large central airways are patent. The bony thorax is unremarkable.. ?? Unenhanced appearance the liver is seen with 2 hypodensities largest on the right near the gallbladder fossa measuring 1.8 cm attenuation 7 consistent with a cyst. ??A small left upper pole renal cyst is noted. Procedure Note Vijaya Alegre MD - 11/09/2019 Examination: CT CHEST WO CONTRAST Date: 11/09/2019 11:00 AM Clinical History: Pulmonary fibrosis, unspecified. Technique: Computed tomographic images of the chest were obtained in the axial plane without the administration of contrast. Coronal reformatted images were performed. Comparison: none Findings: Normal heart size seen without pericardial [...] clips extend to the GE junction noted. Volume loss of the left hemithorax with elevated left hemidiaphragm is seen with left posterior medial basal opacities consistent with subsegmental atelectasis. There is no pulmonary consolidation or effusion. No septal thickening, traction bronchiectasis, nor honeycombing is seen to suggest interstitial lung disease . There is no mosaic attenuation suggesting air trapping. Large central airways are patent. The bony thorax is unremarkable.. Unenhanced appearance the liver is seen with 2 hypodensities largest on the right near the gallbladder fossa measuring 1.8 cm attenuation 7 consistent with a cyst. A small left upper pole renal cyst is noted. IMPRESSION: LEFT LUNG VOLUME LOSS WITH DIAPHRAGMATIC ELEVATION AND LEFT BASAL SUBSEGMENTAL ATELECTASIS. POSTOPERATIVE CHANGE OF THE GE JUNCTION WITH SMALL HIATAL HERNIA. 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 RECOMMEND ULTRASOUND. NO ACUTE THORACIC PATHOLOGY. Electronically signed by: Vijaya Alegre M.D. Santino Funk MD [facility] CT PROCEDURES Final Result documented in this encounter Visit Diagnoses Diagnosis Pulmonary fibrosis, unspecified (HCC) documented in this encounter Care Teams Loss Prevention Consultant Relationship Specialty [place] [address] [address] PCP - General 11/12/16 03/11/22 documented as of this encounter
--- OUTSIDE RECORDS SUMMARY | 2024-10-11 02:02 | XMS_ITS | Encounter Summary ---
Author Organization [facility] Healthcare Address [address] [place] [address] Care Team Providers Care Radiator Cleaner Name Role Phone Santino Funk MD Primary Care Provider + Encounter Details Date Type Department Care Team (Late st Contact Info) Description 12/28/2019 9:00 AM CDT - 12/28/2019 12:55 PM CDT Surgery [facility] Operating Room [address] [place] [address] Saqib Henry MD [facility] [address] [place] [address] THYROIDECTOMY - TOTAL Surgery Details Date/Time Status Location OR Service Patient Class Case Class Case Type Trauma Case? 12/28/2019 9:00 AM Posted [facility] OR POD 5 219 Otolaryngology Surgery Admit Elective Panel 1 Procedure LRB Anes Op Region Wound Class Comments THYROIDECTOMY - TOTAL Bilateral General Neck Class I - Clean POSSIBLE STERNOTOMY N/A General Chest Class I - Clean Surgeon Surgeon Role Service Panel Saqib Henry MD Primary Otolaryngolog y 1 Ruth Coffey MD Resident - Assisting Ot olaryngology 1 Kostas Liriano MD Resident - Assisting Otolaryngolog y 1 Case Notes 12/05: moved to second case per Elaina (lb) Special Needs laryngeal nerve monitor documented in this encounter Social History Tobacco [...] on file Legal Sex Male 3:25 PM 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 No / Unsure 12/28/2019 8:18 AM CDT documented as of this encounter Last Filed Vital Signs Vital Sign Reading Time Taken Comments Blood Pressure 159/94 12/28/2019 10:30 AM CDT Pulse 61 12/28/2019 10:40 AM CDT Temperature 36.2 ??C (97.2 ??F) 12/28/2019 8:27 AM CD T Respiratory Rate 21 12/28/2019 10:40 AM CDT Oxygen Saturation 99% 12/28/2019 10:40 AM CDT Inhaled Oxygen Concentration - - Weight 97.5 kg (215 lb) 12/28/2019 8:27 AM CDT Height 182.9 cm (6') 12/28/2019 8:27 AM CDT Body Mass Index 29.16 12/28/2019 8:27 AM CDT documented in this encounter Discharge Summaries * Last, Ruth Hogan MD - 12/30/2019 1:37 PM CDT Inpatient Discharge Summary BRIEF OVERVIEW Admitting Provider: Saqib Henry MD Discharge Provider: No att. providers found Primary Care Physician at Discharge: Santino Funk MD [phone] Admission Date: 12/28/2019 Discharge Date: 12/30/2019 Admission Location: [facility] Problems/Diagnoses: Principal Problem: Goiter Resolved Problems: No [...] hours. Please call Carolyne Prater at the [facility] next week to get an appointment for drain removal. The number to call is [phone]. The drain must be putting out under [...] Henry on 01/07 at 10:15am. Please call [phone] to confirm your follow up appointment. Please follow-up with your primary care provider for management of your thyroid supplementation. Questions: If you have any concerns or questions, or develop worrisome symptoms such as worsening pain or swelling, bleeding, fever, or vomiting, call your doctor. Use [phone] if you are calling during weekday business hours (8am-5pm Wednesday through Wednesday), otherwise call [phone] and ask for the ENT resident chief compressor station engineer. Discharge Medications: Current Medications TAKE these medications [...] 1 tablet (150 mcg total) by mouth jd edwards consultant before breakfast Commonly known as: SYNTHROID MUCINEX [...] Medicine, Geriatric Medicine Relationship: PCP - General [address] [place] [phone] Next Steps: Follow up Cosigned by Saqib [...] hours. Please call Carolyne Prater at the [facility] next week to get an appointment for drain removal. The number to call is [phone]. The drain must be putting out under [...] Henry on 01/07 at 10:15am. Please call [phone] to confirm your follow up appointment. Please follow-up with your primary care provider for management of your thyroid supplementation. Questions: If you have any concerns or questions, or develop worrisome symptoms such as worsening pain or swelling, bleeding, fever, or vomiting, call your doctor. Use [phone] if you are calling during weekday business hours (8am-5pm Anthony through Wednesday), otherwise call [phone] and ask for the ENT resident chief compressor station engineer. documented in this encounter Medications at Time [...] 1 tablet (150 mcg total) by mouth jd edwards consultant before breakfast 60 tablet 1 12/31/2019 0 [...] 1 tablet (150 mcg total) by mouth jd edwards consultant before breakfast 60 tablet 1 12/31/2019 0 [...] Obtained From Patient Referral Data Referral Source Home Health Outreach Coordinator Referral Reason Discharge Planning Prior to Admission Primary Caregiver Self Support System Spouse/Significant Other Support system contact info (name, phone, availablity) Alon Gtz SPOUSE [phone] Home Care Services No Durable Medical Equipment [...] follow for planning and referrals as needed. [phone]. Spouse to provide ride home * Ger [...] Saqib Henry MD - 12/04/2019 2:30 PM MICA PLATE LAYER [facility] Department of Otolaryngology Division of Head and Neck Surgery 12/04/2019 Gunjan Gtz 1944 [id number] Referred by: Dr. Santino Mcgarry Chief Complaint: Thyroid nodules HPI: Mr. Gtz is a 75 y.o. year old male with past history of asthma, depression, cataracts, and seizures who presents in consultation for thyroid nodules bilaterally. Per report the patient was doing well and being evaluated by his primary care physician Dr. Mgcarry who appreciated bilateral thyroid nodules on a [...] HERNIA REPAIR 1980 Hiatal Hernia repair ??? [place] ABDOMEN SURGERY PROC UNLISTED Hernia Repair - [...] file Gets together: Not on file Attends temple service: Not on file Active member of [...] nor functional nor cosmetic perspective, and Mr. Gzt indicated understanding of that. I did also [...] substernal total thyroidectomy Saqib Henry MD PhD Track Layer Head Attending, Head and Neck Surgery Department of Otolaryngology [facility] [phone] (Clinical nurse Jacquie Hensley RN) Pager [phone] PLATE LAYER documented in this encounter Miscellaneous Notes * [...] of Care - Sigrid Barreto RN - 12/30/2019 5:09 [...] along its lateral extent. We used a Jarquin for carefully identifying and these bands, with bipolar, Harmonic, and clips to divide these bands and avoid undue bleeding. At at all points we remained high up on the gland as we released [...] of the trachea and further rotated from lateralto medial using bipolar cautery to release the [...] of the thyroid that was removed, 10 [place] drainwas placed within the bed and secured [...] Resident - Assisting Anesthesiologist: Elda Watts MD CANE FLUME WATCHMAN: Fabi Thomason CRNA; Portia Tanner CRNA Student Nurse Line Service Technician: RASHID Arguelles Office Bookkeeper: Prem Woodruff RN Office Bookkeeper Relief: Hanna Pepe RN Scrub: Madie Jacobo [...] (Latest Contact Info) Description 10/23/2024 10:00 AM MICA PLATE LAYER Hospital Encounter [facility] Operating Room [address] [place] [id number] [place] [id number] [place] [id number] 10/23/2024 10:00 AM MICA PLATE LAYER - 10/23/2024 1:00 PM MICA PLATE LAYER Surgery [facility] Operating Room [address] [place] [address] [place] [address] [address] ARTHROPLASTY TOTAL KNEE LEFT Scheduled Procedures Name Priority Associated Diagnoses Date/Ti me ARTHROPLASTY TOTAL KNEE left knee osteoarthritis 10/23/2024 10:00 AM MICA PLATE LAYER ESOPHAGOGASTRODUODENOSCOPY Dysphagia, unspecified type documented as [...] CDT) Sodium 139 135 - 145 mmol/L [facility] Potassium, pl 4.5 3.3 - 4.9 mmol/L [facility] Chloride 105 97 - 110 mmol/L [facility] CO2 25 22 - 32 mmol/L [facility] Anion gap 9 2 - 15 mmol/L [facility] BUN 15 8 - 25 mg/dL [facility] Creatinine 1.21 0.80 - 1.30 mg/dL [facility] Glucose 164 70 - 199 mg/dL [facility] Comment: Interpretive Data Fasting glucose >/= [...] 2017. Calcium 8.5 8.5 - 10.3 mg/dL [facility] Phosphorus, pl 2.3 2.3 - 4.5 mg/dL [facility] Albumin 3.6 3.5 - 5.0 g/dL [facility] Blood specimen (specimen) 12/29/2019 2:38 AM CDT 12/29/2019 2:59 AM CDT Saqib Henry MD LAB BLOOD ORDERABLES F inal Result [facility] [place] [address] * (ABNORMAL) Renal function panel (12/28/2019 8:36 PM CDT) Sodium 137 135 - 145 mmol/L [facility] Potassium, pl 4.1 3.3 - 4.9 mmol/L [facility] Chloride 105 97 - 110 mmol/L [facility] CO2 26 22 - 32 mmol/L [facility] Anion gap 6 2 - 15 mmol/L [facility] BUN 15 8 - 25 mg/dL [facility] Creatinine 1.18 0.80 - 1.30 mg/dL [facility] Glucose 202(H) 70 - 199 mg/dL [facility] Comment: Interpretive Data Fasting glucose >/= [...] 2017. Calcium 8.2(L) 8.5 - 10.3 mg/dL [facility] Phosphorus, pl 2.0(L) 2.3 - 4.5 mg/dL [facility] Albumin 3.5 3.5 - 5.0 g/dL [facility] Blood specimen (specimen) 12/28/2019 8:36 PM CDT 12/28/2019 8:51 PM CDT us Saqib Henry MD LAB BLOOD ORDERABLES F inal Result Performing Organization Address City/[facility]/ZIP Co de Phone Number [facility] Department [place] [address] * (ABNORMAL) Vitamin D 25 hydroxy (12/28/2019 2:20 PM CDT) Pathologist [facility] Vitamin D 25-OH 17(L) 30 - 80 ng/mL [facility] Blood specimen (specimen) 12/28/2019 2:20 PM CDT 12/28/2019 2:39 PM CDT Saqib Henry MD LAB BLOOD ORDERABLES F inal Result Performing Organization Address [facility] Co de Phone Number [facility] Department [place] [address] * Renal function panel (12/28/2019 2:20 PM CDT) [facility] Sodium 142 135 - 145 mmol/L [facility] Potassium, pl 4.3 3.3 - 4.9 mmol/L [facility] Chloride 107 97 - 110 mmol/L [facility] CO2 28 22 - 32 mmol/L [facility] Anion gap 7 2 - 15 mmol/L [facility] BUN 14 8 - 25 mg/dL [facility] Creatinine 1.17 0.80 - 1.30 mg/dL [facility] Glucose 113 70 - 199 mg/dL [facility] Comment: Interpretive Data Fasting glucose >/= [...] 2017. Calcium 8.8 8.5 - 10.3 mg/dL [facility] Phosphorus, pl 2.5 2.3 - 4.5 mg/dL [facility] Albumin 3.8 3.5 - 5.0 g/dL [facility] Blood specimen (specimen) 12/28/2019 2:20 PM CDT 12/28/2019 2:39 PM CDT Saqib Henry MD LAB BLOOD ORDERABLES F inal Result Performing Organization Address City/[facility] Co de Phone Number [facility] [place] [address] * Magnesium (12/28/2019 2:20 PM CDT) Magnesium 1.8 1.4 - 2.5 mg/dL [facility] Blood specimen (specimen) 12/28/2019 2:20 PM CDT 12/28/2019 2:39 PM CDT Saqib Henry MD LAB BLOOD ORDERABLES F inal Result Performing Organization Address City/[facility] Co de Phone Number [facility] [place] [place] [address] * PTH (12/28/2019 2:18 PM CDT) PTH 58 15 - 65 pg/mL [facility] Blood specimen (specimen) 12/28/2019 2:18 PM CDT 12/28/2019 3:05 PM CDT Saqib Henry MD LAB BLOOD ORDERABLES F inal Result Performing Organization Address [facility] [place] [address] * Surgical pathology (12/28/2019 12:49 PM CDT) Tissue (Thyroid) 12/28/2019 12:49 PM CDT Narrative PATHOLOGY [facility] - 01/03/2020 5:04 PM CDT EPIC results best viewed via link to PDF [facility] Nidia Frye Laboratory [place] [address] SURGICAL PATHOLOGY REPORT FINAL Patient Name: ?? GUNJAN GTZ Gender: ??M : ??1944 (Age: 75) Address: ??[address] [place] [address] Hospital #: ??[id number] Taken:12/28/2019 Received:12/28/2019 Reported: 01/03/2020 Patient Type: [facility] Inpatient ?? Service: Surgery Location: [place] [address] Physician(s): ??Saqib Henry M.D., PH.D. Santino Funk M.D. MD Kostas Bearden M.D. Diagnosis: Thyroid, total thyroidectomy: ? 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 Labeled A1 - liability claims representative left upper pole; A2 - liability claims representative left upper pole nodule; A3 to A5 - liability claims representative sections of left dominant nodule periphery; A6 - liability claims representative left inferior pole; A7 - isthmus nodule (ends not submitted); A8 - liability claims representative right superior lobe; A9 - right mid lobe nodule (ends not submitted); A10 - liability claims representative right inferior nodule (ends not submitted); A11 ??liability claims representative separate fragment. Jar 0. ?? [facility]/12/29/2019 14:38 Gross Resident:Isra Collado MD By this signature, I attest that the above diagnosis is based upon my personal examination of the slides(and/or other material). The performance characteristics of some immunohistochemical stains, fluorescence in-situ hybridization tests and immunophenotyping by flow cytometry cited in this report (if any) were determined by the Surgical Pathology Department at [facility] as part of an ongoing quality control checker program and in compliance with federally mandated [...] determined by the Surgical Pathology Department of [facility]. ??It has not been cleared or approved by the U. S. Food and Drug Administration. IMAGES AND SCANNED DOCUMENTS, IF INCLUDED, ONLY VIEWABLE IN PDF VERSION OF REPORT Saqib Henry MD LAB PATHOLOGY ORDERABL ES Final Result PATHOLOGY [facility] 3rd [place], [place] [phone] documented in this encounter Visit Diagnoses Diagnosis Goiter- Primary Goiter, unspecified Goiter Goiter, unspecified Goiter Goiter, unspecified documented in [...] 2 puff, inhalation, Every 4 hours PRN (emergency response officer), wheezing, Starting on Wed12/28/19 at 1719, Phase I & Post-op Floor calcium carbonate (OS-KAREN) tablet 1,250 mg 1,250 mg (500 mg of elemental calcium), oral, 3 times daily, First dose on Wed12/28/19 at 2100, Phase I & Post-op Floor Given 12/30/2019 8:23 AM CDT 1,2 50 mg Given 12/29/2019 8:57 PM CDT 1,250 mg Given 12/29/2019 4:15 PM CDT 1,250 mg cholecalciferol (VITAMIN D-3) capsule 2,000 Units 2,000 Units, oral, Daily, First dose on Wed12/28/19 at 2015 Given 12/30/2019 8:23 AM CDT 2,000 Units Given 12/29/2019 8:08 AM CDT 2,000 Units Given 12/28/2019 9:08 PM CDT 2,000 Units docusate sodium (COLACE) capsule 100 mg 100 mg, oral, 2 times daily PRN, constipation, Starting on Wed12/28/19 at 1717, Phase I & Post-op Floor, Indications: constipationIndications:const ipation Given 12/29/2019 8:56 PM CDT 100 mg enoxaparin (LOVENOX) syringe 40 mg 40 mg, subcutaneous, Daily (for enoxaparin), First dose on Wed12/28/19 at 2100, Indications: Deep Vein Thrombosis PreventionIndications:Deep Vein Thrombosis Prevention Given 12/29/2019 8:56 PM CDT 40 mg Right Lower Abdomen Given 12/28/2019 9:08 PM CDT 40 mg Ri ght Lower Abdomen levothyroxine (SYNTHROID) tablet 150 mcg 150 mcg, oral, Daily (early AM), First dose on Wed12/29/19 at 0600, Phase I & Post-op Floor, Administer on an empty stomach, preferably 30 minutes before breakfast. Take 4 hours apart from antacids, iron and calcium products. Given 12/30/2019 5:51 AM CDT 150 mcg Given 12/29/2019 6:41 AM CDT 150 mcg lidocaine-EPINEPHrine (XYLOCAINE with EPI) 1 %-1:100,000 injection As needed, Starting on Wed12/28/19 at 1107, Intra-Op, Indications: Administration of Local AnesthesiaIndications:Administratio n of Local Anesthesia Given 12/28/2019 11:07 AM CDT 6 mL Surgical Site ondansetron (ZOFRAN) injection 4 mg [...] Given 12/28/2019 6:38 PM CDT 40 mg sodium chloride 0.9 % irrigation As needed, Starting on Wed12/28/19 at 1131, Intra-Op Given 12/28/2019 11:21 AM CDT 1,000 mL Surgical Site temazepam (RESTORIL) capsule 15 mg 15 mg, [...] First dose on Wed12/28/19 at 1800, Indications: Pain 1838 (Given - Provider: Maritza Ross RN) 0113 (Given - Provider: Sigrid Barreto RN)0641 (Given - Provider: Sigrid Barreto RN)1152 (Given - Provider: Maritza Ross RN)1805 (Given - Provider: Moreno Milligan, MARAH)2355 (Not Given - Provider: Sigrid Barreto RN - Reason: Contraindicated) 0551 (Given - Provider: Sigrid Barreto RN)1204 (Given - Provider: Libby Navarrete RN) calcium carbonate (OS-KAREN) tablet 1,250 mg 1,250 mg (500 mg of elemental calcium), oral, 3 times daily, First dose on Jo 12/28/19 at 2099, Phase I & Post-op Floor 2107 (Given - Provider: Sigrid Barreto RN) 0808 (Given - Provider: Maritza Ross RN)1615 (Given - Provider: Moreno Milligan, MARAH)205 (Given - Provider: Sigrid Barreto RN) 0823 (Given - Provider: Libby Navarrete RN) ceFAZolin (ANCEF) 2,000 mg/20 mL in sterile water (premix) 2,000 mg (COMPLETED) 2,000 mg, intravenous, at 400 mL/hr, Administer over 3 Minutes, Every 8 hours, First dose on Jo 12/28/19 at 1800, For 2 doses, Beginning 8 hours after pre-op dose., Indications: Prophylaxis, Surgical, Skin/Soft Tissue Infection 185 (New Bag - Provider: Uriel Mar RN) 0113 (New Bag - Provider: Sigrid Barreto RN) cholecalciferol (VITAMIN D-3) capsule 2,000 Units 2,000 Units, oral, Daily, First dose on Jo 12/28/19 at 2014 2107 (Given - Provider: Sigrid Barreto RN) 0808 (Given - Provider: Maritza Ross RN) 0823 (Given - Provider: Libby Navarrete RN) enoxaparin (LOVENOX) syringe 40 mg 40 mg, subcutaneous, Daily (for enoxaparin), First dose on Jo 12/28/19 at 2100, Indications: Deep Vein Thrombosis Prevention 2107 (Given - Provider: Sigrid Barreto RN) 2055 (Given - Provider: Sigrid Barreto, MARAH) levothyroxine (SYNTHROID) tablet 150 mcg 150 [...] Jo 12/28/19 at 2330, For 1 dose 0114 (New Bag - Provider: Sigrid Barreto RN) pantoprazole DR (PROTONIX) extended release tablet 40 mg 40 mg, oral, Daily, First dose on Wed12/28/19 at 1800, Phase I & Post-op Floor, Do not crush, chew, cut, dissolve, open or otherwise manipulate tablet/capsule., Indications: Treatment of Non-Bleeding Gastric Disorder 183 (Given - Provider: Maritza Ross RN) 08 (Given - Provider: Maritza Ross RN) 08 (Given - Provider: Libby Navarrete RN) temazepam (RESTORIL) capsule 15 mg 15 mg, [...] (CANCELED) 30 mL/hr, intravenous, Continuous, Starting on Wed12/28/19 at 0900, Pre-Op 0842 (New Bag - Provider: Blanca Hampton RN)1050 (Rate/Dose Verify - Provider: RASHID Arguelles)1127 (Anesthesia Volume Adjustment - Provider: RASHID Arguelles)1320 (Anesthesia Volume Adjustment - Provider: RASHID Arguelles) PRN Medication Order 12/28/2019 12/29/2019 12/30/2019 albuterol HFA (PROVENTIL HFA,VENTOLIN HFA,PROAIR HFA) 90 mcg/actuation inhaler 2 puff 2 puff, inhalation, Every 4 hours PRN (emergency response officer), wheezing, Starting on Jo 12/28/19 at 1719, [...] - Provider: Simi Reina RN) influenza trivalent [id number] (FLUZONE HIGH DOSE) 180 mcg/0.5 mL vaccine [...] Count Last Ordered Date First Ordered Date temazepam (RESTORIL) capsule 15 mg 1 2019 acetaminophen (TYLENOL) tablet 1,000 mg 2 0 12/28/2019 albuterol HFA (PROVENTIL HFA ,VENTOLIN HFA,PROAIR HFA) 90 mcg/actuation inhaler 2 puff 2 12/28/2019 calcium carbonate (OS-KAREN) tablet 1,250 mg 1 12/28/2019 ceFAZolin (ANCEF) 2,000 mg/2 0 mL in sterile water (premix) 2,000 mg 1 12/28/2019 cholecalciferol (VITAMIN D-3 ) capsule 2,000 Units 1 12/28/2019 dextrose 5% and sodium chlor maria 0.45% infusion (premix) 1 12/28/2019 docusate sodium (COLACE) capsule 100 mg 1 0 12/28/2019 enoxaparin (LOVENOX) syringe 40 mg 1 2019 fentaNYL (SUBLIMAZE) preserv ative free injection 50 mcg 1 12/28/2019 HYDROmorphone (DILAUDID) injection 0.2 mg 1 12/28/2019 influenza trivalent 0 (FLUZONE HIGH DOSE) 180 mcg/0.5 mL vaccine (HIGH DOSE age 65 years and up) 0.5 mL 1 12/28/2019 Lactated Ringer's (LR) infusion 2 0 levothyroxine (SYNTHROID) tablet 150 mcg 1 12/28/2019 magnesium sulfate 2 g/50 mL in water (premix) 2 g 1 12/28/2019 ondansetron (ZOFRAN) injection 4 mg 1 12/27 ondansetron ODT (ZOFRAN-ODT) disintegrating tablet 4 mg 1 12/28/2019 oxyCODONE (ROXICODONE) tablet 5 mg [address] (PROTONIX) e xtended release tablet 40 mg 1 12/28/2019 sodium chloride 0.9% flush 0.5-20 mL 1 12/09 documented in this encounter Care Teams Radiator Cleaner Relationship Specialty [place] [address] [address] PCP - General 11/12/16 03/11/22 documented as of this encounter
--- OUTSIDE RECORDS SUMMARY | 2024-10-11 02:02 | XMS_ITS | Encounter Summary ---
Author Organization Formerly [facility] Address [address] [place] [address] Care Team Providers Care Hot Strip Finisher Name Role Phone Santino Funk MD Primary Care Provider + Reason for Referral * Diagnostic Imaging (Routine) - Closed Specialty Diagnoses / Procedures Referred By Contac t Referred To Contact Diagnoses Nontoxic goiter, unspecified Procedures US Thyroid Santino Funk MD Phone: tel: fax: [address] [phone] Referral ID Status Reason Start Date Expiration Date Visits Re quested Visits Authorized [id number] Closed 11/13/2019 05/24/2021 1 1 ESMITH Reason for Visit * Diagnostic Imaging (Routine) - Closed Specialty Diagnoses / Procedures Referred By Dillan mccallum Referred To Contact Diagnoses Nontoxic goiter, unspecified Procedures US Thyroid Santino Funk MD Phone: tel: fax: [address] [phone] Referral ID Status Reason Start Date Expiration Date Visits Re quested Visits Authorized [id number] Closed 11/13/2019 05/24/2021 1 1 Encounter Details Date Type Department Care Team (Latest Contact Info) Description 11/17/2019 8:56 AM WHITESMITH - 11/17/2019 11:59 PM WHITESMITH Hospital Encounter [facility] ` [address] [place] [address] [place] [address] [facility] [address] [place] [address] Nontoxic goiter, unspecified Discharge Disposition: Discharge to home or self [...] on file Legal Sex Male 3:25 PM WHITESMITH Gender Identity Not on file Sexual Orientation [...] (Latest Contact Info) Description 10/23/2024 10:00 AM [facility] Hospital Encounter [facility] Operating Room [address] [place] [address] [place] [phone] [id number] 10/23/2024 10:00 AM WHITESMITH - 10/23/2024 1:00 PM WHITESMITH Surgery [facility] Operating Room [address] [place] [address] [place] [address] [facility] [address] [place] [address] ARTHROPLASTY TOTAL KNEE LEFT Scheduled Procedures Name Priority Associated Diagnoses Date/Ti me ARTHROPLASTY TOTAL KNEE left knee osteoarthritis 10/23/2024 10:00 AM WHITESMITH ESOPHAGOGASTRODUODENOSCOPY Dysphagia, unspecified type documented as of this encounter Procedures Procedure Name Priority Date/Time Associated Diagnosis Comments US THYROID Schedule Routine, Read Routine (OP Routine) 11/17/2019 9:54 AM WHITESMITH Nontoxic goiter, unspecified documented in this encounter Results * US Thyroid (11/17/2019 9:54 AM WHITESMITH) Anatomical Region Laterality Modality Head and Neck N/A Ultrasound 11/17/2019 10:2 9 AM WHITESMITH Impressions 11/17/2019 10:36 AM WHITESMITH THE COMPLEX NODULES WITHIN EACH LOBE, DEPENDING UPON ASSOCIATED CLINICAL CONSIDERATIONS, MAY BE EITHER FOLLOWED WITH REPEAT ULTRASOUND AT 6 MONTH INTERVALS UNTIL STABLE OR MAY UNDERGO ADDITIONAL EVALUATION BY ULTRASOUND-GUIDED BIOPSY. COMPLICATION FROM BLEEDING RISK WILL BE HIGHER DUE TO THE HYPERVASCULARITY OF THE THYROID GLAND AND THE NODULES. Electronically signed by: Jae Saha M.D. Narrative 11/17/2019 10:36 AM WHITESMITH EXAMINATION: US THYROID HISTORY: Goiter ORDER DATE: 11/17/2019 9:15 AM TECHNIQUE: Ultrasound imaging of both lobes of the thyroid gland and the isthmus with grayscale and duplex imaging ?? FINDINGS: RIGHT LOBE: Measurements are 56 x 31 x 28 mm There is heterogenous echotexture with scattered hypervascularity.. There is a complex nodule within the inferior lobe measuring 1 x 16 x 21 mm with mild vascularity . Another similar-appearing nodule is seen in the upper pole measuring 11 x 5 x 9 mm more vascular. LEFT LOBE: Measurements are 89 x 48 [...] measuring 27 x 14 x 25 mm. ISTHMUS: Measurements are 14 mm in width. There is heterogenous echotexture and hypervascularity. There were no focal abnormalities. . Procedure Note Jae Saha MD - 11/17/2019 EXAMINATION: US THYROID HISTORY: Goiter ORDER DATE: 11/17/2019 9:15 AM TECHNIQUE: Ultrasound imaging of both lobes of the thyroid gland and the isthmus with grayscale and duplex imaging FINDINGS: RIGHT LOBE: Measurements are 56 x 31 x 28 mm There is heterogenous echotexture with scattered hypervascularity.. There is a complex nodule within the inferior lobe measuring 1 x 16 x 21 mm with mild vascularity . Another similar-appearing nodule is seen in the upper pole measuring 11 x 5 x 9 mm more vascular. LEFT LOBE: Measurements are 89 x 48 [...] measuring 27 x 14 x 25 mm. ISTHMUS: Measurements are 14 mm in width. There is heterogenous echotexture and hypervascularity. There were no focal abnormalities. . IMPRESSION: THE COMPLEX NODULES WITHIN EACH LOBE, DEPENDING UPON ASSOCIATED CLINICAL CONSIDERATIONS, MAY BE EITHER FOLLOWED WITH REPEAT ULTRASOUND AT 6 MONTH INTERVALS UNTIL STABLE OR MAY UNDERGO ADDITIONAL EVALUATION BY ULTRASOUND-GUIDED BIOPSY. COMPLICATION FROM BLEEDING RISK WILL BE HIGHER DUE TO THE HYPERVASCULARITY OF THE THYROID GLAND AND THE NODULES. Electronically signed by: Jae Saha M.D. Santino Funk MD IMG US PROCEDURES Final Result documented in this encounter Visit Diagnoses Diagnosis Nontoxic goiter, unspecified documented in this encounter Care Teams Hot Strip Finisher Relationship Specialty [place] [id number] [address] PCP - General 11/12/16 03/11/22 documented as of this encounter
--- OUTSIDE RECORDS SUMMARY | 2024-10-11 02:03 | XMS_ITS | Encounter Summary ---
Author Organization [facility] Address [address] [facility] [facility] [address] [place] [address] Care Team Providers Care Catcher Filter Tip Name Role Phone Santino Funk MD Primary Care Provider + Encounter Details Date Type Department Care Team (Late st Contact Info) Description 12/09/2018 Telephone [facility] [address] [phone] Destini Kearney, [place] Social History Tobacco Use Types Packs/Day Years Used Date Smoking Tobacco: Former Smokeless Tobacco: Never Alcohol Use Standard Drinks/Week Comments Yes 0 (1 standard drink = 0.6 oz pur e alcohol) PHQ-2 Answer Date Recorded PHQ-2 Score 0 12/12/2018 Sex and Gender Information Value Date Recorded Sex Assigned at Not on file Legal Sex Male 3:25 PM IRONWORKER WIRE FENCE ERECTOR Gender Identity Not on file Sexual Orientation Not on file documented as of this encounter Miscellaneous Notes * Telephone Encounter - Jossie Montalvo PA - 12/13/2018 4:15 PM CST Called patient, doing better with knees, I told him someone would call to change his appointment april is Dr. Sepulveda's patient and his appointment is set with Dr. Brewer. Can you take care of thisplease? Thanks WORKER WIRE FENCE ERECTOR documented in this encounter Plan of Treatment Upcoming Encounters Date Type Department Care Team (Latest Contact Info) Description 10/23/2024 10:00 AM IRONWORKER WIRE FENCE ERECTOR Hospital Encounter [facility] Operating Room [address] [place] [address] [place] [address] [address] 10/23/2024 10:00 AM IRONWORKER WIRE FENCE ERECTOR - 10/23/2024 1:00 PM IRONWORKER WIRE FENCE ERECTOR Surgery [facility] Operating Room [address] [place] [address] [place] [address] [id number] ARTHROPLASTY TOTAL KNEE LEFT Scheduled Procedures Name Priority Associated Diagnoses Date/Ti me ARTHROPLASTY TOTAL KNEE left knee osteoarthritis 10/23/2024 10:00 AM IRONWORKER WIRE FENCE ERECTOR ESOPHAGOGASTRODUODENOSCOPY Dysphagia, unspecified type documented as of this encounter Visit Diagnoses Not on filedocumented in this encounter Care Teams Catcher Filter Tip Relationship Specialty [place] [address] [facility] [address] [place] [address] PCP - General 11/12/16 03/11/22 documented as of this encounter
--- OUTSIDE RECORDS SUMMARY | 2024-10-11 02:03 | XMS_ITS | Encounter Summary ---
Author Organization [facility] Address [address] [place] [address] Care Team Providers Care Telecommunications Linesworker Name Role Phone Santino Funk MD Primary Care Provider + Encounter Details Date Type Department Care Team (Late st Contact Info) Description 12/02/2018 3:10 PM DESIGN ARCHITECT Lab [facility] [address] [place] [address] [place] [address] [facility] [address] [place] [address] Discharge Disposition: Discharge to home or self care Social History Tobacco Use Types Packs/Day Years Used Date Smoking Tobacco: Former Smokeless Tobacco: Never Alcohol Use Standard Drinks/Week Comments Yes 0 (1 standard drink = 0.6 oz pur e alcohol) Sex and Gender Information Value Date Recorded Sex Assigned at Not on file Legal Sex Male 3:25 PM DESIGN ARCHITECT Gender Identity Not on file Sexual Orientation Not on file documented as of this encounter Discharge Disposition Disposition Code Departure Means Destination Discharge to home or self care documented in this encounter Plan of Treatment Upcoming Encounters Date Type Department Care Team (Latest Contact Info) Description 10/23/2024 10:00 AM DESIGN ARCHITECT Hospital Encounter [facility] Operating Room [address] [place] [address] [place] [address] [facility] [address] [place] [address] 10/23/2024 10:00 AM DESIGN ARCHITECT - 10/23/2024 1:00 PM DESIGN ARCHITECT Surgery [facility] Operating Room [address] [place] [address] [place] [address] [facility] [address] [place] [address] ARTHROPLASTY TOTAL KNEE LEFT Scheduled Procedures Name Priority Associated Diagnoses Date/Ti me ARTHROPLASTY TOTAL KNEE left knee osteoarthritis 10/23/2024 10:00 AM DESIGN ARCHITECT ESOPHAGOGASTRODUODENOSCOPY Dysphagia, unspecified type documented as of this encounter Procedures Procedure Name Priority Date/Time Associated Diagnosis Comments URINALYSIS, MACROSCOPIC Routine 12/02/2018 3:04 PM DESIGN ARCHITECT documented in this encounter Results * Urinalysis, macroscopic (12/02/2018 3:04 PM DESIGN ARCHITECT) Color, ur Yellow Yellow [facility] Clarity, ur Clear Clear [facility] Specific gravity, ur 1.016 1.010 - 1.025 [facility] pH, urine 6.0 [facility] Protein, ur ql Negative Negative [facility] Glucose, ur ql Negative Negative [facility] Ketones, ur Negative Negative [facility] Bilirubin, ur Negative Negative [facility] Blood, ur Negative Negative [facility] Urobilinogen, ur <2.0 <2.0 mg/dL [facility] Nitrite, ur Negative Negative [facility] Leukocyte esterase, ur Negative Negative [facility] Urine, clean voided 12/02/2018 3:04 PM DESIGN ARCHITECT 12/02/2018 3:04 PM DESIGN ARCHITECT Narrative [facility] - 12/02/2018 7:35 PM DESIGN ARCHITECT ?? Urine pH is affected by diet, medications, systemic acid-base disturbances, and renal tubular function. ??pH may affect urinary stone formation. ??For example, urine pH below 6.0 may help reduce the tendency for calcium phosphate stones and pH greater than 6.0 may reduce the tendency for uric acid stone formation. Source: [employer]. Last revised 10-21-2017 Santino Funk MD LAB MICROBIOLOGY - GENER AL ORDERABLES Final Result [facility] [address] [address] [place] [address] documented in this encounter Visit Diagnoses Not on filedocumented in this encounter Care Teams Telecommunications Linesworker Relationship Specialty [place] [address] [address] [place] [facility] [address] [place] [address] PCP - General 11/12/16 03/11/22 documented as of this encounter
--- OUTSIDE RECORDS SUMMARY | 2024-10-11 02:03 | XMS_ITS | Encounter Summary ---
Author Organization [facility] Healthcare Address [address] [place] [address] Care Team Providers Care Drying Machine Operator Package Yarns Name Role Phone Santino Funk MD Primary Care Provider + Encounter Details Date Type Department Care Team (Late st Contact Info) Description 09/22/2018 9:00 AM DECISION SCIENCE ANALYST - 09/22/2018 10:30 AM [facility] Surgery [facility] Operating Room [address] [place] [address] George Sepulveda MD [address] [place], [place] [id number] Bilateral knees arthroscopy partial medial menisectomy, left knee internal fixation femur, tibia and patella; right knee internal fixation tibia and patella Surgery Details Date/Time Status Location OR Service Patient Class Case Class Case Type Trauma Case? 09/22/2018 9:00 AM Posted OPERATING ROOM OR Orthopaedics Outpatient Elective Panel 1 Procedure LRB Anes Op Region Wound Class Comments Bilateral knees arthroscopy partial medial menisectomy, left knee internal fixation femur, tibia and patella; right knee internal fixation tibia and patella Bilateral General Knee Class I - Clean Arthroscopy Knee Subchondroplasty Femoral Condyle Left General Knee Class I - Clean Surgeon Surgeon Role Service Panel George Sepulveda [...] on file Legal Sex Male 3:25 PM DECISION SCIENCE ANALYST Gender Identity Not on file Sexual Orientation Not on file documented as of this encounter Last Filed Vital Signs Vital Sign Reading Time Taken Comments Blood Pressure 158/96 09/22/2018 7:29 AM DECISION SCIENCE ANALYST Pulse 57 09/22/2018 7:29 AM DECISION SCIENCE ANALYST Temperature 36.7 ??C (98 ??F) 09/22/2018 7:29 AM DECISION SCIENCE ANALYST Respiratory Rate 16 09/22/2018 7:29 AM DECISION SCIENCE ANALYST Oxygen Saturation 97% 09/22/2018 7:29 AM DECISION SCIENCE ANALYST Inhaled Oxygen Concentration - - Weight 99.8 kg (220 lb) 09/22/2018 7:29 AM DECISION SCIENCE ANALYST Height 182.9 cm (6') 09/22/2018 7:29 AM DECISION SCIENCE ANALYST Body Mass Index 29.84 09/22/2018 7:29 AM DECISION SCIENCE ANALYST documented in this encounter Discharge Instructions * Discharge Instructions* Carolyne Ruiz RN - 09/22/2018 12:04 PM DECISION SCIENCE ANALYST [facility] [address], [address] [place] [address] Post-Operative Instructions Knee Arthroscopy Dr. George Sepulveda Medication ?? One of two pain medications, [place] (hydrocodone), or Percocet (oxycodone) will be prescribed to you. Take as instructed and as needed. ?? Pain medication may cause constipation. You may take an over the counter stool softener (colace,Senekot, etc) to help prevent this problem. ?? You should take these medicines with food or they may nauseate you. ?? You may not drive or operate heavy equipment while on narcotics. ?? Pain medication is refilled on an individual basis and only during office hours. ?? If you have a nerve block, begin taking the pills as you feel your sensation returning to prevent a sudden onset of extreme pain (typically 10-12 hours after surgery). DO NOT WAIT UNTIL THE BLOCK COMPLETELY WEARS OFF. ?? Most patients find it helpful to take two pills 10-12 hours after surgery and another two every four hours the first night after surgery, decreasing the amount as you feel the pain improving. ?? The first 48 hours are typically the worst for pain and gradually improves. ?? If prescribed Lovenox or Xarleto for prevention of blood cloths, begin the day AFTER surgery andfinish all injections or pills. ?? Take one regular aspirin (325mg) once a day for 10 days unless you have been prescribed Xarelto,Lovenox, are on another blood thinner, or have a history of stomach ulcers. ?? Resume all home medications unless otherwise instructed. ?? Call immediately to the office if you are having an adverse reaction to the medicine. Wound Care ?? You may remove your bandages two days after surgery (surgery Wednesday, remove ; surgery, remove Wednesday) unless otherwise instructed. Do not remove steri-strips (tape pieces) covering the incisions. If steri-strips fall off, cover incisions with band-aids and change daily. ?? The incisions may not get wet until after your first post-operative visit. ?? To take a shower or bath with your dressing still on, wrap the leg in a large plastic garbage bag with tape at both ends. After you remove your dressings, wrap with plastic wrap or continue to usethe bag. Pat dry if knee gets wet. ?? Continue to use the bag or plastic wrap to keep incisions dry for at least 2 weeks after surgery. ?? NO submersion of wounds (bath, hot tub, pool) is allowed until a minimum of 2-3 weeks after surgery. Crutches ?? You may place full weight on the involved leg unless instructed otherwise after surgery to help with balance and stability. ?? Crutches will be needed initially for comfort unless instructed otherwise until you can walk with a normal gait (heel to toe walk). Exercise ?? Following surgery three main goals exist: ?? Full knee extension ?? Quadriceps contraction and activation ?? Control of pain and swelling ?? To help gain full knee extension, place a small rolled up towel under your ankle and push back of knee to touch the floor by contacting your quadriceps muscle. ?? DO NOT put pillows under the knee while you sleep. ?? Elevate your leg for several days if you are sitting to help with swelling. ?? Being up and around after surgery will help diminish the risk of blood clots. ?? Therapy is a eubanks aspect of recovery and should start within 2-3 days after surgery. Cold Therapy ?? Ice should be used for comfort and swelling. Use it at least 20 minutes at a time. Many patientsuse it an hour on then an hour off while awake for the first day or two. ?? Never apply directly to exposed skin. Place a dish-towel or t-shirt between your skin and the ice. ?? After the two days, use 20-30 minutes every 3-4 hours if possible. ?? A simple bag of frozen peas may be used as an inexpensive ice pack. Buy several bags of peas, place in a gallon size zip-lock bag making them about an inch thick and removing as much air as possible. Return to freezer, lying flat when done. Bruising ?? The lower leg may become swollen and bruised, which is normal and is from the fluid and blood inthe knee moving down the leg. It should resolve in 10-14 days. ?? If you experience severe calf pain or swelling, call the office immediately. Emergencies ?? If you have an emergency contact Dr. Sepulveda's office at [phone]. ?? Contact the office if you notice any of the following: ?? Uncontrolled nausea or vomiting, reaction to medication, inability to urinate, fever greater than 101.5 (low grade fever 1-2 days after surgery is normal), severe pain not relieved by pain medication, redness or continued drainage around incision (a small amount is normal). ?? If you are having chest pain or difficulty breathing, call 911 or go tot the closest emergency room. Driving ?? You may drive when off all narcotics and feel you can adequately react. You must be able to brake firmly and comfortably. Follow Up Appointment ?? Please make your first post-op visit 5-7 days after surgery if not done so already. ?? If you have any questions. Please call Maura Serrano at [phone]. FOLLOW UP CALLS You may get a couple of follow-up phone calls from us over the next 2 days. For your information, our number may come up as unknown or a random number. If our surgical flow allows, we will attempt tomake a phone call the same day of surgery if you were discharged prior to 3pm. Regardless, we will call you the next day after surgery to follow up with you on pain control and see if you have any questions or concerns. If we are unable to reach you, we will leave a voice message if that is an option and then attempt to reach you again the following day. If we are still unable to reach you on that second day after surgery, we will stop the process of follow up calls. Please reach out to your surgeon if you have any questions or concerns. SION SCIENCE ANALYST * Attachments The following attachments cannot be sent through Care Everywhere. * Knee Arthroscopy (Discharge Care) ([place]) * Meniscectomy (Discharge Care) ([place]) * Oxycodone/Acetaminophen (By mouth) ([place]) documented in this encounter Medications at Time of Discharge ergocalciferol (VITAMIN D) 50,000 unit capsuleIndication s:Vitamin D Deficiency,takes on Wednesday Take 50,000 Units by mouth once a week Pt not taking 12/30/2019 meloxicam (MOBIC) 15 mg tablet Take 1 tablet by mouth daily. 06/17/2018 12/14/2019 omeprazole (PriLOSEC) 20 mg capsule take 1 capsule by oral route every day before a meal 0 0 10/21/2016 10/13/2023 oxyCODONE-acetami nophen (PERCOCET) 7.5-325 mg per tabletIndications :Pain Take 1-2 tablets every 4 hours as needed for pain 60 tablet 09/22/2018 10/12/2018 temazepam (RESTORIL) 15 mg capsuleIndication s:Insomnia Take 15 mg by mouth nightly as needed for sleep 01/21/2018 09/10/2020 documented as of this encounter Ordered Prescriptions Prescription Sig Dispense Quantity Refills Last Filled Start Date End Date oxyCODONE-acetamin ophen (PERCOCET) 7.5-325 mg per tabletIndications: Pain Take 1-2 tablets every 4 hours as needed for pain 60 tablet 09/22/2018 9 documented in this encounter Discharge Disposition Disposition Code Departure Means Destination Discharge to home or self care documented in this encounter Progress Notes * Carmen Grey, PT - 09/22/2018 8:22 AM CST Physical Therapy SHORT TERM GAIT EVALUATION Abrahan Gtz Jr. 1944 74 y.o. Subchondral insufficiency fracture of condyle of left femur with delayed healing, subsequent encounter ?? Complex tear of medial meniscus of left knee as current injury, subsequent encounter ?? Closed nondisplaced osteochondral fracture of left patella with delayed healing ?? Closed fracture of left tibial plateau with delayed healing ?? Closed fracture of right tibial plateau with delayed healing ?? Closed osteochondral fracture of patella, right, with delayed healing, subsequent encounter ?? Complex tear of medial meniscus of right knee as current injury, subsequent encounter ?? Primary osteoarthritis of left knee Patient Active Problem List Diagnosis ??? Primary [...] meniscus of left knee as current injury Past Medical History: Diagnosis Date ??? Acute [...] EXTRACTION, BILATERAL Bilateral 2018 ??? HERNIA REPAIR 1979atal Hernia repair ??? [place] ABDOMEN SURGERY PROC UNLISTED Hernia Repair - (Added by TW Conv) TIME IN: 08 TIME OUT: 0850 SUBJECTIVE:with in one story home with one plus one step to enter PRECAUTIONS/WEIGHT BEARING STATUS:bilateral LE WBAT PAIN: 5/10 in left knee pre and post activity Barriers to learning: none noted Patient goal: none noted OBJECTIVE: UE ROM/STRENGTH: WFL LE ROM/STRENGTH: WFl BED MOBILITY: independent TRANSFERS: independent with assistive device GAIT: independent with assistive device 50' feet with rolling walker STAIRS: Number of stairs performed: 1 with supervision and rolling walker MENTAL STATUS: awake and alert; oriented to person, place, and time DISCHARGE INFORMATION: Patient seen for evaluation and gait training and demonstrates safe and independent use of prescribed assistive device. Patient safe to return home after 1 PT visit(s). EQUIPMENT PURCHASED/ISSUED: rolling walker, patient had brought in wheeled walker that was purchased at [facility] but it was broken, will issue wheeled walker SION SCIENCE ANALYST documented in this encounter H&P Notes * George Sepulveda MD - 09/22/2018 7:28 AM CST I have reviewed the H&P, examined the patient, and endorse the findings as written. Plan of Care : Based on the above findings, I consider Abrahan Gtz Jr. to be an acceptable risk for : Procedure(s): Arthroscopy bilat Knee Partial Medial Menisectomy w/ perc internal fixation of medial femoral condyle assisted internal fixation medial tibial plateau internal fixaton patella SION SCIENCE ANALYST Source Note - George Sepulveda MD - 09/06/2018 8:15 AM DECISION SCIENCE ANALYST Images from the original note were not included. NEW PATIENT VISIT Subjective CHIEF COMPLAINT He had concerns including Results of the Left Knee and Results of the Right Knee. HISTORY OF PRESENT ILLINESS Patient returns today for follow-up evaluation of his right and left knee MRIs. Patient continues have pain especially in the left knee more than the right. Patient is still limping on the left knee.He reports swelling. He denies catching or locking. Pain Assessment Pain Assessment: 0-10 Pain Score: 0 - No pain Pain Location: Knee Pain Orientation: Left Pain Descriptors: Jabbing Pain Frequency: Intermittent Pain Onset: Ongoing Multiple Pain Sites: Two Pain 2 Pain Score 2: 8 Pain Location 2: Knee Pain Orientation 2: Right Pain Frequency 2: Intermittent Pain Onset 2: On-going PAST MEDICAL HISTORY He has a past medical history of Acute gastric ulcer without hemorrhage or perforation; Depression;Gastroesophageal reflux disease; Osteoarthritis; Peptic ulcer; Personal history of diseases of skinor subcutaneous tissue; Personal history of other diseases of the digestive system; Personal history of other diseases of the musculoskeletal system and connective tissue; Personal history of other diseases of the nervous system and sense organs; Personal history of other diseases of the respiratory system; Personal history of other mental and behavioral disorders; Personal history of other specified conditions; and Visual disturbance. PAST SURGICAL HISTORY He has a past surgical history that includes Hernia repair and pr abdomen surgery proc unlisted. MEDICATIONS He has a current medication list which includes the following prescription(s): doxycycline, ergocalciferol, hydrocodone-acetaminophen, loratadine, lorazepam, meloxicam, metoclopramide, omeprazole, and temazepam. ALLERGIES He has No Known Allergies. SOCIAL HISTORY He reports that he has quit smoking. He has never used smokeless tobacco. He reports that he drinksalcohol. He reports that he does not use drugs. FAMILY HISTORY Family History Problem Relation Age of Onset ??? Heart failure Other Family history of Congestive heart failure; ??? Heart disease Other Family history of Heart disease; ??? Osteoarthritis Other Family history of Osteoarthritis; ??? Osteoporosis Other Family history of Osteoporosis; REVIEW OF SYSTEMS Review of Systems Constitutional: [...] is not nervous/anxious. Objective PHYSICAL EXAM Ht 182.9 cm (6') Wt 101.6 kg (224 lb) BMI 30.38 kg/m?? Patient is alert and oriented times 3, [...] tender non distended with positive bowel sounds Right knee Inspection Erythema: absent Cellulitis: absent Swelling: absent Surgical scar/wound: absent. Skin temperature: normal Alignment: neutral Gait: normal Palpation Tenderness: absent. Patellar tracking: normal Crepitus: positive Patella grind: negative Subluxation: negative Range of motion The patient has normal range of motion of the right knee. Active extension: 0 Active flexion: >140 Passive flexion: 0 Passive flexion: >140 Extensor lag: no. Stability AP stability: stable [...] absent Swelling: absent Effusion: 1+ Surgical scar/wound: absent. Skin temperature: normal Alignment: neutral Gait: antalgic Palpation Tenderness: present. The tenderness is located in the medial joint line and patella. Patellar tracking: normal Crepitus: positive Patella grind: positive Subluxation: negative Range of motion The patient has pain with range of motion of the left knee. Active extension: 0 Active flexion: >140 Passive extension: 0 Passive flexion: >140 Extensor lag: no. Stability AP stability: stable [...] negative Patellar apprehension: negative REVIEW OF X-RAYS/STUDIES/LABS MRI of the right knee is viewed and interpreted this demonstrates subchondral fracture of the tibial plateau with a complex tear of the posterior horn of the medial meniscus. Also noted is a nondisplaced osteochondral fracture of the patella. 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 MRI of the left knee is viewed and interpreted this demonstrates subchondral insufficiency fractureof the medial femoral condyle medial tibial plateau with associated bone edema. There is a complex tear of the posterior horn of the medial meniscus. In addition there is a nondisplaced osteochondralfracture of patella. 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 Assessment/Plan Abrahan was seen today for results and results. Diagnoses and all orders for this visit: Subchondral insufficiency fracture of condyle of left femur with delayed healing, subsequent encounter Complex tear of medial meniscus of left knee as current injury, subsequent encounter Closed nondisplaced osteochondral fracture of left patella with delayed healing Closed fracture of left tibial plateau with delayed healing Closed fracture of right tibial plateau with delayed healing Closed osteochondral fracture of patella, right, with delayed healing, subsequent encounter Complex tear of medial meniscus of right knee as current injury, subsequent encounter Primary osteoarthritis of left knee Plan We discussed treatment options to include non-operative and operative management. Non-operative management would consist of physical therapy with or without injection. Operative management would consist of bilateral arthroscopic meniscectomy versus meniscus repair to be determined in surgery based on the tear size and type with internal fixation of the patella osteochondral fracture, percutaneousinternal fixation of the femoral condyle subchondral fracture and arthroscopic assisted internal fixation of the tibial plateau subchondral fracture with calcium phosphate bone substitute. Risks and benefits of the surgery were discussed with the patient. These include but are not limited to bleeding infection damage to surrounding structures including nerves and vessels, post-operative stiffness, DVT PE stroke heart attack and . Patient understands these risks and agreed to proceed with the surgery as described above. All questions and concerns were addressed with the patient prior to blue rgical consent being established in the office today. The patient will followup for surgery. George Sepulveda MD SION SCIENCE ANALYST documented in this encounter Miscellaneous Notes * Perioperative Nursing Note - Carolyne Ruiz RN - 09/22/2018 12:40 PM CST Discharge instructions complete. Report given to Romelia RN and MARAH Marshall. Patient just needs IV removed and then able to go home when dressed and ready. at bedside. SION SCIENCE ANALYST * Op Note - George Sepulveda MD - 09/22/2018 9:00 AM CST Operative Note Name: Abrahan Gtz Jr. : 1944 AGE: 74 y.o. DATE: 09/22/2018 SURGEON: George Sepulveda MD FERTILIZER SUPERVISOR: CHECO Grissom PREOPERATIVE DIAGNOSIS: 1. Subchondral insufficiency fracture medial femoral condyle left knee 2. Subchondral insufficiency fracture medial tibial plateau left knee 3. Osteochondral fracture patella left knee 4. Medial meniscus tear left knee 5. Subchondral insufficiency fracture bicondylar tibial plateau right knee 6. Osteochondral fracture patella right knee 7. Medial meniscus tear right knee POST OPERATIVE DIAGNOSIS: 1. Subchondral insufficiency fracture medial femoral condyle left knee 2. Subchondral insufficiency fracture medial tibial plateau left knee 3. Osteochondral fracture patella left knee 4. Medial meniscus tear left knee 5. Subchondral insufficiency fracture bicondylar tibial plateau right knee 6. Osteochondral fracture patella right knee 7. Medial meniscus tear right knee OPERATION PERFORMED: 1. Percutaneous internal fixation left knee medial femoral condyle subchondral fracture 2. Arthroscopic assisted internal fixation left knee medial tibial plateau subchondral fracture 3. Internal fixation left knee patella osteochondral fracture 4. Medial meniscus partial meniscectomy left knee 5. Arthroscopic assisted internal fixation right knee bicondylar tibial plateau subchondral fracture 6. Internal fixation right knee patella osteochondral fracture 7. Medial meniscus partial meniscectomy right knee COMPLICATIONS: None ESTIMATED BLOOD LOSS: Minimal TOURNIQUET TIME: NA min SPECIMEN: None ANESTHESIA: General IMPLANTS: LEFT FEMUR 3 cc biomaterial flowable implant TIBIA 1 cc biomaterial flowable implant PATELLA 1 cc biomaterial flowable implant RIGHT TIBIA 2.5 cc biomaterial flowable implant PATELLA 1 cc biomaterial flowable implant INDICATION: Patient is a 74 year old male who sustained an injury to the left and right knees. MRI confirmed the above listed injuries after conservative management failed to provide pain relief and She was counseled regarding surgical intervention. The risks and benefits of the procedure were thoroughly explained prior to informed consent being obtained. PROCEDURE: After informed consent was obtained, the patient was identified in the preop holding area and the right and left lower extremities were marked for surgery. The patient was then taken to operating theroom, placed under general anesthesia and then positioned supine on the operating table. 2gm Ancef was administered intravenously for antibiotic prophylaxis. The right and left lower extremity was then prepped and draped in the normal sterile fashion. Time-out was initiated. The correct patient, procedure, side, and site were identified. Starting with the left knee under fluoroscopic visualization I then accessed the medial femoral condyle in the two regions identified on MRI to have a subchondral fracture with an 11 gauge side and end delivery cannula, the patella in the region identified onMRI to have an osteochondral fracture with an 11 gauge end delivery cannula, and the medial tibial plateau in the region identified on MRI to have a subchondral fracture with an 11 gauge side delivery cannula. I then proceeded to fill the medial femoral condyle subchondral insufficiency fracture with a total of 3 cc biomaterial flowable implant two in the posterior cyst and one in the medial articular surface, the patella with 1cc biomaterial flowable implant, and the medial tibial plateau [id number] biomaterial flowable implant. I then moved to the right knee and under fluoroscopic visualization I then accessed the medial tibial plateau from the lateral side in the region identified on MRI to have a subchondral fracture with an 11 gauge side delivery cannula and the patella in the region identified on MRI to have an osteochondral fracture with an 11 gauge end delivery cannula. I then proceeded to fill the medial tibial plateau subchondral insufficiency fracture with 1 cc biomaterial flowable implant and pulled the cannula back into the lateral plateau where I filled the lateral plateau with 1.5cc biomaterial flowable implant and the patella with 1cc biomaterial flowable implant. The flowable implant was allowed to harden over a period of 8 minutes. Final images were then obtainedin AP and lateral projections and I was satisfied with the fill of the subchondral fractures. I then established anterolateral and anteromedial portals in the left knee in a standard arthroscopy fashion. I inserted the scope up into the suprapatellar pouch and performed a diagnostic arthroscopy. 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 Moving to the medial compartment through the medial gutter, the medial meniscus was visualized, probed, and found to have a complex tear with horizontal and radial components. It was debrided with an arthroscopic shaver and basket biter and smoothed to a stable rim with a radiofrequency ablator. Approximately 25 % of themeniscus was removed. I then moved to the notch, where the ACL and PCL were visualized and probed and shown to be stable and intact. I then moved to the lateral compartment, where the lateral meniscus was visualized and probed and found to be stable and intact. I then established anterolateral and anteromedial portals in the right knee in a standard arthroscopy fashion. I inserted the scope up into the suprapatellar pouch and performed a diagnostic arthroscopy. 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 Moving to the medial compartment through the medial gutter, the medial meniscus was visualized, probed, and found to have a complex tear with horizontal and radial components. It was debrided with an arthroscopic shaver and basket biter and smoothed to a stable rim with a radiofrequency ablator. Approximately 25 % of the meniscus was removed. I then moved to the notch, where the ACL and PCL were visualized and probed and shown to be stable and intact. I then moved to the lateral compartment, where the lateral meniscus was visualized and probed andfound to be stable and intact. I then removed the scope and prepared to close. Portals were closed with 4-0 Monocryl. Sterile dressings were then applied. The patient was then awoken from general anesthesia, and transferred to the PACU in stable condition. All sponge and needle counts were correct. George Sepulveda MD 09/22/2018 10:32 AM SION SCIENCE ANALYST * Pre-Procedure Instructions - Nidia Whitfield RN - 09/19/2018 5:12 PM DECISION SCIENCE ANALYST We are pleased that you and your doctor have chosen [facility] for your surgery. We hope that the following information will help make your visit a pleasant one. Surgery Date: 09/22/2018 and arrive at 0700 Before your surgery: ?? Notify your doctor of ANY change in your health such as a cold, sore throat, fever, any infection or a change in the problem for which you are having your surgery. ?? Follow any instructions given to you by your doctor or surgeon. One week before surgery STOP taking: ?? All herbal supplements ?? Aspirin (not ordered by your doctor) ?? Aleve, Advil, Motrin, Ibuprofen, or other similar medications (Tylenol is okay). 24 hours before your surgery: ?? No smoking or alcoholic drinks. Night before your surgery: ?? Do not eat anything after midnight. ?? Clear liquids (water, tea or coffee - NO dairy or creamers, clear juices - apple or white grape)until 0600 the morning of your surgery. ?? Follow surgeon's instructions for anti-bacterial shower night before and morning of surgery. ?? Fresh linen on your bed. Day of surgery: ?? ONLY take these pills with a tiny sip of water. Pre-Surgery Instructions: Medication Instructions ??? omeprazole (PriLOSEC) ?? Use no make-up, nail hungarian, lotions, oils or powders on your skin. ?? Wear comfortable clothes that will not be tight in the area of your surgery. ?? Leave all valuables and jewelry (including all body piercing jewelry) at home. ?? Please bring your a photo ID and insurance cards with you. ?? Check in at the Registration Desk. After your Outpatient Surgery: ?? You must have a responsible adult to drive you home, you will not be allowed to drive or take a cab home. ?? We recommend you have someone stay with you for 24 hours after your surgery. What to bring if you are spending the night with us: ?? Bring toiletry items such as: robe, slippers, toothbrush, toothpaste, brush or comb. ?? Bring contact lens, hearing aids, glass cases and denture container if you use any of these items. ?? The hospital will provide you with a gown. Questions or concerns: ?? If you have any questions or concerns regarding your procedure, contact your surgeon as soon as possible. ?? If you have questions regarding your Pre-Admission Testing, please call us. We can be reached atthe number posted at the top of the page. SION SCIENCE ANALYST documented in this encounter Plan of Treatment Upcoming Encounters Date Type Department Care Team (Latest Contact Info) Description 10/23/2024 10:00 AM DECISION SCIENCE ANALYST Hospital Encounter [facility] Operating Room [address] [place] [id number] [place] [id number] [address] 10/23/2024 10:00 AM DECISION SCIENCE ANALYST - 10/23/2024 1:00 PM DECISION SCIENCE ANALYST Surgery [facility] Operating Room [address] [place] [id number] [place] [id number] [id number] ARTHROPLASTY TOTAL KNEE LEFT Scheduled Procedures Name Priority Associated Diagnoses Date/Ti me ARTHROPLASTY TOTAL KNEE left knee osteoarthritis 10/23/2024 10:00 AM DECISION SCIENCE ANALYST ESOPHAGOGASTRODUODENOSCOPY Dysphagia, unspecified type documented as of this encounter Procedures Procedure Name Priority Date/Time Associated Diagnosis Comments FL FLUOROSCOPY < 1 HOUR IP Routine 09/22/20 18 10:11 AM DECISION SCIENCE ANALYST XR KNEE RIGHT 1 OR 2 VIEWS IP Routine 09/22/2018 10:09 AM DECISION SCIENCE ANALYST XR KNEE LEFT 1 OR 2 VIEWS IP Routine 09/22/2018 10:07 AM DECISION SCIENCE ANALYST ARTHROSCOPY KNEE SUBCHONDROPLASTY FEMORAL CONDYLE 09/22/2018 9:01 AM DECISION SCIENCE ANALYST bilat medial menisus tear ARTHROSCOPY KNEE PARTIAL MEDIAL MENISECTOMY 09/22/2018 9:01 AM DECISION SCIENCE ANALYST bilat medial menisus tear documented in this encounter Results * FL Fluoroscopy < 1 Hour (09/22/2018 10:11 AM DECISION SCIENCE ANALYST) Narrative RAD_PACS_[facility] - 09/22/2018 10:11 AM DECISION SCIENCE ANALYST The images from this study are not interpreted by Radiology. ??Please refer to the physician's procedure / OR operative note. George Sepulveda MD IMG FLUOROSCOPY PROCEDURE S Final Result RAD_PACS_[facility] * XR Knee Right 1 or 2 Views (09/22/2018 10:09 AM DECISION SCIENCE ANALYST) Anatomical Region Laterality Modality Lower Extremities, Knee Right Computed Radiography 09/22/2018 10:1 6 AM DECISION SCIENCE ANALYST Impressions 09/22/2018 10:17 AM DECISION SCIENCE ANALYST Surgical localization. Electronically signed by: Beka Draper M.D. Narrative 09/22/2018 10:17 AM DECISION SCIENCE ANALYST RESULT: EXAMINATION: XR KNEE RIGHT 1 OR 2 VIEWS HISTORY: 74-year-old man tibial plateau fracture with delayed healing FINDINGS: 3 radiographs obtained in surgery using portable C-arm demonstrate placement of intramedullary rods procreation of tunnels within the patella, femoral condyles and tibial plateau. Procedure Note Beka Draper MD - 09/22/2018 RESULT: EXAMINATION: XR KNEE RIGHT 1 OR 2 VIEWS HISTORY: 74-year-old man tibial plateau fracture with delayed healing FINDINGS: 3 radiographs obtained in surgery using portable C-arm demonstrate placement of intramedullary rods procreation of tunnels within the patella, femoral condyles and tibial plateau. IMPRESSION: Surgical localization. Electronically signed by: Beka Draper M.D. George Sepulveda MD IMG XR PROCEDURES Final R esult * XR Knee Left 1 or 2 Views (09/22/2018 10:07 AM DECISION SCIENCE ANALYST) Anatomical Region Laterality Modality Lower Extremities, Knee Left Computed Radiography 09/22/2018 10:1 7 AM DECISION SCIENCE ANALYST Impressions 09/22/2018 10:18 AM DECISION SCIENCE ANALYST Radiographic localization Electronically signed by: Beka Draper M.D. Narrative 09/22/2018 10:18 AM DECISION SCIENCE ANALYST RESULT: EXAMINATION: XR KNEE LEFT 1 OR 2 VIEWS HISTORY: 74-year-old man tibial plateau fracture delayed healing FINDINGS: 4 radiographs obtained in surgery portable in a C-arm demonstrate surgical defects within the midportion of the patella, femoral condyles and tibial plateau. ??Placement of intramedullary rods from the medial aspect of the knee joint, into the patella, medial femoral condyle and medial tibial plateau. Procedure Note Beka Draper MD - 09/22/2018 RESULT: EXAMINATION: XR KNEE LEFT 1 OR 2 VIEWS HISTORY: 74-year-old man tibial plateau fracture delayed healing FINDINGS: 4 radiographs obtained in surgery portable in a C-arm demonstrate surgical defects within the midportion of the patella, femoral condyles and tibial plateau. Placement of intramedullary rods from the medial aspect of the knee joint, into the patella, medial femoral condyle and medial tibial plateau. IMPRESSION: Radiographic localization Electronically signed by: Beka Draper M.D. George Sepulveda MD IMG XR PROCEDURES Final R esult documented in this encounter Visit Diagnoses Not on filedocumented in this encounter Administered Medications Inactive Administered Medications - up to 3 most recent administrations Medication Order MAR Action Action Date Dose Rate Site acetaminophen (TYLENOL) 500 mg tablet - ADS Override Pull Starting on Jo 09/22/18 at 0813, For 1 dose, Byron Ruiz: cabinet override acetaminophen (TYLENOL) tablet 1,000 mg 1,000 mg, oral, Once, On Jo 09/22/18 at 0830, For 1 dose, Pre-Op, Indications: Pre-Emptive AnalgesiaIndications:Pre-Emp tive Analgesia Given 09/22/2018 8:21 AM DECISION SCIENCE ANALYST 1,000 mg bupivacaine (MARCAINE) 0.25 % (2.5 mg/mL) preservative free injection As needed, Starting on Jo 09/22/18 at 0946, Intra-Op Given 09/22/2018 9:46 AM DECISION SCIENCE ANALYST 40 mL Surgical Site EPINEPHrine injection As needed, Starting on Jo 09/22/18 at 0947, Intra-Op Given 09/22/2018 9:47 AM DECISION SCIENCE ANALYST 2 mg Surgical Site fentaNYL (SUBLIMAZE) 50 mcg/mL preservative free injection - ADS Override Pull Starting on Jo 09/22/18 at 1045, For 1 dose, AMBREEN SMITH: cabinet override fentaNYL (SUBLIMAZE) preservative free injection 50 mcg 50 mcg, intravenous, Once as needed, breakthrough pain, Starting on Jo 12/13/18 at 1039, For 1 dose, Phase I, Administer for uncontrolled or increasing pain while in PACU only. Then proceed to PACU 1st line analgesic., Indications: PainIndications:Pain Given 09/22/2018 10:54 AM DECISION SCIENCE ANALYST 50 mcg fentaNYL (SUBLIMAZE) preservative free injection 50 mcg 50 mcg, intravenous, Every 10 min PRN, 1st line for pain, Starting on Jo 09/22/18 at 1039, Phase I, Notify Anesthesiologist if total PACU dose reaches 100 mcg and pain score 5/10 or more., Indications: PainIndications:Pain Given 09/22/2018 11:30 AM DECISION SCIENCE ANALYST 50 mcg Given 09/22/2018 11:19 AM DECISION SCIENCE ANALYST 50 mcg Given 09/22/2018 11:04 AM DECISION SCIENCE ANALYST 50 mcg ketorolac (TORADOL) 30 mg/mL (1 mL) injection - ADS Override Pull Starting on Jo 09/22/18 at 1045, For 1 dose, AMBREEN SMITH: cabinet override ketorolac (TORADOL) injection 15 mg 15 mg, intravenous, Once, On Jo 09/22/18 at 1130, For 1 dose, Phase I, For Adult IV push, administer over 15 seconds Given 09/22/2018 10:48 AM DECISION SCIENCE ANALYST 15 mg Lactated Ringer's (LR) infusion 30 mL/hr, intravenous, Continuous, Starting on Jo 09/22/18 at 0830 New Bag 09/22/2018 8:55 AM DECISION SCIENCE ANALYST oxyCODONE-acetaminophen (PERCOCET) 7.5-325 mg per tablet - ADS Override Pull Starting on Jo 09/22/18 at 1154, For 1 dose, AMBREEN SMITH: cabinet override oxyCODONE-acetaminophen (PERCOCET) 7.5-325 mg per tablet 2 tablet 2 tablet, oral, Once, On Jo 09/22/18 at 1300, For 1 dose, Phase I, Indications: PainIndications:Pain Given 09/22/2018 12:17 PM DECISION SCIENCE ANALYST 2 tablets sodium chloride 0.9 % irrigation As needed, Starting on Jo 09/22/18 at 0947, Intra-Op Given 09/22/2018 9:48 AM DECISION SCIENCE ANALYST 6,000 mL Surgical Site Given 09/22/2018 9:47 AM DECISION SCIENCE ANALYST 1,000 mL Blue rgical Site documented in this encounter Discontinued Medications Medication Sig Discontinue Reason Start Date End Da te metoclopramide (REGLAN) 10 mg tablet Take 10 mg by mouth 4 (four) times a day. Other 09/19/2018 doxycycline (VIBRAMYCIN) 100 mg capsule Take 100 mg by mouth 2 (two) times a day. Other 09/19/2018 loratadine 10 mg capsule Take by mouth. Other 09/19/2018 LORazepam (ATIVAN) 1 mg tablet Take 1 mg by mouth every 6 (six) hours as needed for anxiety. Other 09/19/2018 HYDROcodone-acetaminop hen (NORCO) 7.5-325 mg per tabletIndications:Pain Stop Taking at Discharge 06/17/2018 09/22/2018 acetaminophen ER (TYLENOL) 650 mg 8 hr tablet Take 1,300 mg by mouth every 8 (eight) hours as needed for pain. Stop Taking at Discharge 09/22/2018 documented as of this encounter Historical Medications * This list may reflect changes made after this encounter. acetaminophen ER (TYLENOL) 650 mg 8 hr tablet Take 1,300 mg by mouth every 8 (eight) hours as needed for pain. 09/22/2018 added in this encounter Active and Recently Administered Medications Times are shown in DECISION SCIENCE ANALYST. Scheduled Medication Order 09/20/2018 09/21/2018 09/22/2018 acetaminophen (TYLENOL) tablet 1,000 mg (COMPLETED) 1,000 mg, oral, Once, On Jo 18 at 0830, For 1 dose, Pre-Op, Indications: Pre-Emptive Analgesia 0821 (Given - Provid er: Byron Ruiz RN) ceFAZolin (ANCEF) 1000 mg in 10 mL sterile water (premix) (COMPLETED) 2,000 mg, intravenous, at 400 mL/hr, Administer over 3 Minutes, Once, On Jo /18 at 0830, For 1 dose, Pre-Op, Indications: Prophylaxis, Surgical 0912 (Given - Provid er: Danielle Godinez CRNA) ketorolac (TORADOL) injection 15 mg (COMPLETED) 15 mg, intravenous, Once, On Jo /18 at 1130, For 1 dose, Phase I, For Adult IV push, administer over 15 seconds 1048 (Given - Provid er: Ambreen Alexis RN) oxyCODONE-acetaminophen (PERCOCET) 7.5-325 mg per tablet 2 tablet (COMPLETED) 2 tablet, oral, Once, On Jo 09/22/18 at 1300, For 1 dose, Phase I, Indications: Pain 1217 (Given - Provid er: Ambreen Alexis RN) Continuous Medication Order 09/20/2018 09/21/2018 09/22/2018 Lactated Ringer's (LR) infusion 30 mL/hr, intravenous, Continuous, Starting on Jo 09/22/18 at 0830 0855 (New Bag - Prov ider: Danielle Godinez CRNA)1022 (Anesthesia Volume Adjustment - Provider: Danielle Godinez CRNA) PRN Medication Order 09/20/2018 09/21/2018 09/22/2018 bupivacaine (MARCAINE) 0.25 % (2.5 mg/mL) preservative free injection (CANCELED) As needed, Starting on Jo 09/22/18 at 0946, Intra-Op 0946 (Given - Provid er: LORI Kitchen - Comment: 20ml injected into right knee 20ml injected into left knee) EPINEPHrine injection (CANCELED) As needed, Starting on Jo 09/22/18 at 0947, Intra-Op 0947 (Given - Provid er: George Sepulveda MD - Comment: 1ml 1:1000 epinephrine + 3000ml lactated ringers; irrigation; arthrex pump; bilateral knees) fentaNYL (SUBLIMAZE) preservative free injection 50 mcg (COMPLETED) 50 mcg, intravenous, Once as needed, breakthrough pain, Starting on Jo 09/22/18 at 1039, For 1 dose, Phase I, Administer for uncontrolled or increasing pain while in PACU only. Then proceed to PACU 1st line analgesic., Indications: Pain 1054 (Given - Provid er: Ambreen Alexis RN) fentaNYL (SUBLIMAZE) preservative free injection 50 mcg (CANCELED) 50 mcg, intravenous, Every 10 min PRN, 1st line for pain, Starting on Jo 18 at 1039, Phase I, Notify Anesthesiologist if total PACU dose reaches 100 mcg and pain score 5/10 or more., Indications: Pain 1104 (Given - Provid er: Ambreen Alexis, RN)1119 (Given - Provider: Ambreen Alexis, RN)1130 (Given - Provider: Ambreen Alexis, RN) sodium chloride 0.9 % irrigation (CANCELED) As needed, Starting on Jo 09/22/18 at 0947, Intra-Op 0947 (Given - Provid er: George Sepulveda MD - Comment: placed onto sterile field)0948 (Given - Provider: George Sepulveda MD - Comment: 1ml 1:1000 epinephrine + 3000ml lactated ringers; irrigation; arthrex pump; bilateral knees) documented in this encounter Orders Medications Ordered That Te ht Not Have Been Administered Count Last Ordered Date First Ordered Date albuterol (PROVENTIL,VENTOLI N) 2.5 mg /3 mL (0.083 %) nebulizer solution 2.5 mg 1 09/22/2018 ceFAZolin (ANCEF) 1 gram/10 mL IV premix - ADS Override Pull 1 09/22/2018 ceFAZolin (ANCEF) 1000 mg in 10 mL sterile water (premix) 1 09/22/2018 ceFAZolin (ANCEF) 2000 mg in 50 mL dextrose (premix) 1 09/22/2018 diphenhydrAMINE (BENADRYL) i njection 12.5 mg 1 09/22/2018 fentaNYL (SUBLIMAZE) 50 mcg/ mL preservative free injection - ADS Override Pull 1 09/22/2018 Lactated Ringer's (LR) infusion 1 8 Lactated Ringer's (LR) infus ion - ADS Override Pull 1 09/22/2018 midazolam (VERSED) 1 mg/mL p reservative free injection - ADS Override Pull 1 09/22/2018 naloxone (NARCAN) 0.4 mg/mL injection 0.04-0.4 mg 1 09/22/2018 sodium chloride 0.9% flush 0.5-20 mL 1 09/10 Diet Count Last Ordered Date First Orde red Date ADULT DISCHARGE DIET 1 09/22/2018 Nursing Count Last Ordered Date First Orde red Date DISCHARGE ACTIVITY 1 09/22/2018 DISCHARGE CALL PROVIDER 7 09/22/2018 DISCHARGE DRESSING 3 09/22/2018 DISCHARGE INSTRUCTIONS 2 09/22/2018 FOLLOW UP WITH PROVIDER 1 09/22/2018 WEIGHT BEARING TOLERATED 1 09/22/2018 documented in this encounter Care Teams Drying Machine Operator Package Yarns Relationship Specialty [place] [id number] [address] PCP - General 11/12/16 03/11/22 documented as of this encounter
--- OUTSIDE RECORDS SUMMARY | 2024-10-11 02:03 | XMS_ITS | Encounter Summary ---
Author Organization [facility] Address [address] [place] [address] Care Team Providers Care Diving Judge Name Role Phone Santino Funk MD Primary Care Provider + Reason for Referral * Diagnostic Imaging (Routine) - Closed Specialty Diagnoses / Procedures Referred By Contac t Referred To Contact Radiology Diagnoses Primary osteoarthritis of left knee Procedures MRI Knee Left WO Contrast George Sepulveda MD Phone: tel: fax: [facility] Referral ID Status Reason Start Date Expiration Date Visits Re quested Visits Authorized [id number] Closed 08/16/2018 02/25/2020 1 1 L DRAWER Encounter Details Date Type Department Care Team (Late st Contact Info) Description 08/16/2018 Orders Only [facility] [id number] [id number] George Sepulveda MD [address] [place] [id number] Primary osteoarthritis of left knee (Primary Dx) Social History Tobacco Use Types Packs/Day Years Used Date Smoking Tobacco: Former Smokeless Tobacco: Never Alcohol Use Standard Drinks/Week Comments Yes 0 (1 standard drink = 0.6 oz pur e alcohol) Sex and Gender Information Value Date Recorded Sex Assigned at Not on file Legal Sex Male 3:25 PM METAL DRAWER Gender Identity Not on file Sexual Orientation Not on file documented as of this encounter Plan of Treatment Upcoming Encounters Date Type Department Care Team (Latest Contact Info) Description 10/23/2024 10:00 AM METAL DRAWER Hospital Encounter [facility] Operating Room [address] [place] [address] [place] [address] [address] 10/23/2024 10:00 AM METAL DRAWER - 10/23/2024 1:00 PM METAL DRAWER Surgery [facility] Operating Room [id number] [place] [address] [place] [address] [id number] ARTHROPLASTY TOTAL KNEE LEFT Scheduled Procedures Name Priority Associated Diagnoses Date/Ti me ARTHROPLASTY TOTAL KNEE left knee osteoarthritis 10/23/2024 10:00 AM METAL DRAWER ESOPHAGOGASTRODUODENOSCOPY Dysphagia, unspecified type documented as of this encounter Results * MRI Knee Left WO Contrast (08/24/2018 6:09 PM METAL DRAWER) Anatomical Region Laterality Modality Lower Extremities Left Magnetic Reson ance 08/25/2018 2:54 PM METAL DRAWER Impressions 08/26/2018 9:47 AM METAL DRAWER 1. ??Degenerative tear involving the body and posterior horn of the medial meniscus. 2. 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 3. ??5 mm osteochondral lesion of the medial femoral condyle, associated with an intra-articular fluid collection, which could represent a ganglion cyst. Electronically signed by: Martir Yang M.D. Narrative 08/26/2018 9:47 AM METAL DRAWER RESULT: Examination: MRI left knee without contrast History: Acute on chronic left knee pain. Technique: Multiplanar multisequence magnetic resonance imaging examination of the left knee was performed without intravenous contrast. Comparison:None Findings: There is mild diffuse subcutaneous edema, which may be secondary to venous insufficiency. ??There is anatomic alignment of the patella, with the femur. ??There is complete loss of cartilage in the medial patellar facet and there is grade II chondromalacia in the apical and lateral patellar facets. ??There is a suprapatellar bursal effusion. The extensor mechanism is normal. ??Both cruciate ligaments and both collateral ligaments appear normal. ??Extensor mechanism is intact. A physiologic amount of fluid is seen in the knee. Posterior to the medial femoral epicondyle, a fluid collection measures 29 x 13 x 14 mm. ??This extends circumferentially around the medial epicondyles. ??There is a 5 mm osteochondral defect involving the medial aspect of the medial epicondyle.. The body and posterior horn of the medial meniscus are macerated and there is grade III chondromalacia in the medial joint compartment. The medial meniscus is unremarkable. The lateral meniscus and lateral collateral ligament are normal. There is mild chondromalacia in the anterior weightbearing surface of the lateral femoral condyle. ?? Procedure Note Martir Yang MD - 08/26/2018 RESULT: Examination: MRI left knee without contrast History: Acute on chronic left knee pain. Technique: Multiplanar multisequence magnetic resonance imaging examination of the left knee was performed without intravenous contrast. Comparison:None Findings: There is mild diffuse subcutaneous edema, which may be secondary to venous insufficiency. There is anatomic alignment of the patella, with the femur. There is complete loss of cartilage in the medial patellar facet and there is grade II chondromalacia in the apical and lateral patellar facets. There is a suprapatellar bursal effusion. The extensor mechanism is normal. Both cruciate ligaments and both collateral ligaments appear normal. Extensor mechanism is intact. A physiologic amount of fluid is seen in the knee. Posterior to the medial femoral epicondyle, a fluid collection measures 29 x 13 x 14 mm. This extends circumferentially around the medial epicondyles. There is a 5 mm osteochondral defect involving the medial aspect of the medial epicondyle.. The body and posterior horn of the medial meniscus are macerated and there is grade III chondromalacia in the medial joint compartment. The medial meniscus is unremarkable. The lateral meniscus and lateral collateral ligament are normal. There is mild chondromalacia in the anterior weightbearing surface of the lateral femoral condyle. IMPRESSION: 1. Degenerative tear involving the body and posterior horn of the medial meniscus. 2. 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 3. 5 mm osteochondral lesion of the medial femoral condyle, associated with an intra-articular fluid collection, which could represent a ganglion cyst. Electronically signed by: Martir Yang M.D. George Sepulveda MD IMG MRI PROCEDURES Final Result documented in this encounter Visit Diagnoses Diagnosis Primary osteoarthritis of left knee- Primary Primary osteoarthritis of left knee Acute medial meniscus tear of left knee, subsequent encounter documented in this encounter Care Teams Diving Judge Relationship Specialty [place] [id number] [address] PCP - General 11/12/16 03/11/22 documented as of this encounter
--- OUTSIDE RECORDS SUMMARY | 2024-10-11 02:03 | XMS_ITS | Encounter Summary ---
Author Organization [facility] Medical Group Address [address] [facility] [address] [place] [address] Care Team Providers Care Mold Cleaning And Storage Supervisor Name Role Phone Santino Funk MD Primary Care Provider + Encounter Details Date Type Department Care Team (Late st Contact Info) Description 12/07/2018 Telephone [facility] [address] [phone] Janny Vera Social History Tobacco Use Types Packs/Day Years Used Date Smoking Tobacco: Former Smokeless Tobacco: Never Alcohol Use Standard Drinks/Week Comments Yes 0 (1 standard drink = 0.6 oz pur e alcohol) Sex and Gender Information Value Date Recorded Sex Assigned at Not on file Legal Sex Male 3:25 PM HOSPITAL NURSE LIAISON Gender Identity Not on file Sexual Orientation Not on file documented as of this encounter Miscellaneous Notes * Telephone Encounter - Janny Vera - 12/07/2018 11:44 AM CST appt made for 1 pm today thanks. ITAL NURSE LIAISON * Telephone Encounter - Jossie Montalvo PA - 12/07/2018 11:39 AM CST If he wants to come in this afternoon I can see him ITAL NURSE LIAISON * Telephone Encounter - Janny Vera - 12/07/2018 11:22 AM CST Stated he is having trouble walking, would we want him to come in to be seen by a PA since Grimshawis out or give him a call? Please advise. ITAL NURSE LIAISON documented in this encounter Plan of Treatment Upcoming Encounters Date Type Department Care Team (Latest Contact Info) Description 10/23/2024 10:00 AM HOSPITAL NURSE LIAISON Hospital Encounter [facility] Operating Room [address] [place] [address] [place] [address] [address] 10/23/2024 10:00 AM HOSPITAL NURSE LIAISON - 10/23/2024 1:00 PM HOSPITAL NURSE LIAISON Surgery [facility] Operating Room [address] [place] [address] [place] [address] [address] ARTHROPLASTY TOTAL KNEE LEFT Scheduled Procedures Name Priority Associated Diagnoses Date/Ti me ARTHROPLASTY TOTAL KNEE left knee osteoarthritis 10/23/2024 10:00 AM HOSPITAL NURSE LIAISON ESOPHAGOGASTRODUODENOSCOPY Dysphagia, unspecified type documented as of this encounter Visit Diagnoses Not on filedocumented in this encounter Care Teams [employer] Cleaning [employer] Storage Supervisor Relationship Specialty [place] [address] [address] PCP - General 11/12/16 03/11/22 documented as of this encounter
--- OUTSIDE RECORDS SUMMARY | 2024-10-11 02:03 | XMS_ITS | Encounter Summary ---
Author Organization [facility] Healthcare Address [address] [place] [address] Care Team Providers Care Vehicle Calibration Engineer Name Role Phone Santino Funk MD Primary Care Provider + Encounter Details Date Type Department Care Team (Latest Contact Info) Description 09/22/2018 6:42 AM SILK WASHING MACHINE OPERATOR - 09/22/2018 1:40 PM SILK WASHING MACHINE OPERATOR Hospital Encounter [facility] Operating Room [address] [place] [address] [place] [address] [address] Subchondral insufficiency fracture of condyle of left femur with delayed healing, subsequent encounter; Closed fracture of left tibial plateau with delayed healing; Closed nondisplaced osteochondral fracture of left patella with delayed healing; Closed fracture of right tibial plateau with delayed healing; Closed osteochondral fracture of patella, right, with delayed healing, subsequent encounter; Complex tear of medial meniscus of left knee as current injury, subsequent encounter; Complex tear of medial meniscus of right knee as current injury, subsequent encounter Discharge Disposition: Discharge to home or self care Social History Tobacco Use Types Packs/Day Years Used Date Smoking Tobacco: Former Smokeless Tobacco: Never Alcohol Use Standard Drinks/Week Comments Yes 0 (1 standard drink = 0.6 oz pur e alcohol) Sex and Gender Information Value Date Recorded Sex Assigned at Not on file Legal Sex Male 3:25 PM SILK WASHING MACHINE OPERATOR Gender Identity Not on file Sexual Orientation Not on file documented as of this encounter Last Filed Vital Signs Vital Sign Reading Time Taken Comments Blood Pressure 173/91 09/22/2018 11:30 AM SILK WASHING MACHINE OPERATOR Pulse 80 09/22/2018 11:45 AM SILK WASHING MACHINE OPERATOR Temperature 36.7 ??C (98 ??F) 09/22/2018 10:40 AM SILK WASHING MACHINE OPERATOR Respiratory Rate 17 09/22/2018 11:45 AM SILK WASHING MACHINE OPERATOR Oxygen Saturation 97% 09/22/2018 11:45 AM SILK WASHING MACHINE OPERATOR Inhaled Oxygen Concentration - - Weight 99.8 kg (220 lb) 09/22/2018 7:29 AM SILK WASHING MACHINE OPERATOR Height 182.9 cm (6') 09/22/2018 7:29 AM SILK WASHING MACHINE OPERATOR Body Mass Index 29.84 09/22/2018 7:29 AM SILK WASHING MACHINE OPERATOR documented in this encounter Discharge Instructions * Discharge Instructions* Carolyne Ruiz RN - 09/22/2018 12:04 PM SILK WASHING MACHINE OPERATOR [facility] [address], [place] [address] Post-Operative Instructions Knee Arthroscopy Dr. George Sepulveda Medication ?? One of two pain medications, [place] (hydrocodone), or Percocet (oxycodone) will be prescribed [...] an emergency contact Dr. Sepulveda's office at [phone]. ?? Contact the office if you notice [...] any questions. Please call Maura Serrano at [phone]. FOLLOW UP CALLS You may get a [...] if you have any questions or concerns. WASHING MACHINE OPERATOR * Attachments The following attachments cannot be sent through Care Everywhere. * Knee Arthroscopy (Discharge Care) (Singaporean) * Meniscectomy (Discharge Care) (Singaporean) * Oxycodone/Acetaminophen (By mouth) (Singaporean) documented in this encounter Medications at Time [...] ??? Seizures (CMS/HCC) 1998 last seizure in 1998 ??? SOB [...] - (Added by TW Conv) TIME IN: 0825 TIME OUT: 0850 SUBJECTIVE:with in one story [...] in wheeled walker that was purchased at [facility] but it was broken, will issue wheeled walker WASHING MACHINE OPERATOR documented in this encounter H&P Notes * George Sepulveda MD - 09/22/2018 7:28 AM CST I have reviewed the H&P, examined the patient, and endorse the findings as written. Plan of Care : Based on the above findings, I consider Abrahan Gtz to be an acceptable risk for : Procedure(s): Arthroscopy bilat Knee Partial Medial Menisectomy w/ perc internal fixation of medial femoral condyle assisted internal fixation medial tibial plateau internal fixaton patella WASHING MACHINE OPERATOR Source Note - George Sepulveda MD - 09/06/2018 8:15 AM SILK WASHING MACHINE OPERATOR Images from the original note were not [...] patella. 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 Assessment/Plan Abarhan was seen today for results and results. [...] were addressed with the patient prior to kennedy rgical consent being established in the office today. The patient will followup for surgery. George Sepulveda MD WASHING MACHINE OPERATOR documented in this encounter Miscellaneous Notes * Perioperative Nursing Note - Carolyne Ruiz RN - 09/22/2018 12:40 PM CST Discharge instructions complete. Report given to Romelia RN and Joanna RN. Patient just needs IV removed and then able to go home when dressed and ready. at bedside. WASHING MACHINE OPERATOR * Op Note - George Sepulveda MD - 09/22/2018 9:00 AM CST Operative Note Name: Abrahan Gtz Jr. : 1944 AGE: 74 y.o. DATE: 09/22/2018 SURGEON: George Sepulveda MD DEMOGRAPHIC ANALYST: CHECO Grissom PREOPERATIVE DIAGNOSIS: 1. Subchondral insufficiency [...] flowable implant, and the medial tibial plateau [id number] biomaterial flowable implant. I then moved to [...] correct. George Sepulveda MD 09/22/2018 10:32 AM WASHING MACHINE OPERATOR * Pre-Procedure Instructions - Nidia Whitfield RN - 09/19/2018 5:12 PM SILK WASHING MACHINE OPERATOR We are pleased that you and your doctor have chosen [facility] for your surgery. We hope [...] posted at the top of the page. WASHING MACHINE OPERATOR documented in this encounter Plan of Treatment Upcoming Encounters Date Type Department Care Team (Latest Contact Info) Description 10/23/2024 10:00 AM SILK WASHING MACHINE OPERATOR Hospital Encounter [facility] Operating Room [address] [place] [address] [place] [address] [id number] 10/23/2024 10:00 AM SILK WASHING MACHINE OPERATOR - 10/23/2024 1:00 PM SILK WASHING MACHINE OPERATOR Surgery [facility] Operating Room [address] [place] [address] [place] [address] [id number] ARTHROPLASTY TOTAL KNEE LEFT Scheduled Procedures Name Priority Associated Diagnoses Date/Ti me ARTHROPLASTY TOTAL KNEE left knee osteoarthritis 10/23/2024 10:00 AM SILK WASHING MACHINE OPERATOR ESOPHAGOGASTRODUODENOSCOPY Dysphagia, unspecified type documented as of this encounter Procedures Procedure Name Priority Date/Time Associated Diagnosis Comments FL FLUOROSCOPY < 1 HOUR IP Routine 09/22/20 18 10:11 AM SILK WASHING MACHINE OPERATOR XR KNEE RIGHT 1 OR 2 VIEWS IP Routine 09/22/2018 10:09 AM SILK WASHING MACHINE OPERATOR XR KNEE LEFT 1 OR 2 VIEWS IP Routine 09/22/2018 10:07 AM SILK WASHING MACHINE OPERATOR ARTHROSCOPY KNEE SUBCHONDROPLASTY FEMORAL CONDYLE 09/22/2018 9:01 AM SILK WASHING MACHINE OPERATOR bilat medial menisus tear ARTHROSCOPY KNEE PARTIAL MEDIAL MENISECTOMY 09/22/2018 9:01 AM SILK WASHING MACHINE OPERATOR bilat medial menisus tear documented in this encounter Results * FL Fluoroscopy < 1 Hour (09/22/2018 10:11 AM SILK WASHING MACHINE OPERATOR) Narrative [facility]_P[facility] - 09/22/2018 10:11 AM SILK WASHING MACHINE OPERATOR The images from this study are not interpreted by Radiology. ??Please refer to the physician's procedure / OR operative note. us George Sepulveda MD IMG FLUOROSCOPY PROCEDURE S Final Result [facility] * XR Knee Right 1 or 2 Views (09/22/2018 10:09 AM SILK WASHING MACHINE OPERATOR) Anatomical Region Laterality Modality Lower Extremities, Knee Right Computed Radiography 09/22/2018 10:1 6 AM SILK WASHING MACHINE OPERATOR Impressions 09/22/2018 10:17 AM SILK WASHING MACHINE OPERATOR Surgical localization. Electronically signed by: Beka Draper M.D. Narrative 09/22/2018 10:17 AM SILK WASHING MACHINE OPERATOR RESULT: EXAMINATION: XR KNEE RIGHT 1 OR [...] by: Beka Draper M.D. George Sepulveda MD IM XR PROCEDURES Final R esult * XR Knee Left 1 or 2 Views (09/22/2018 10:07 AM SILK WASHING MACHINE OPERATOR) Anatomical Region Laterality Modality Lower Extremities, Knee Left Computed Radiography 09/22/2018 10:1 7 AM SILK WASHING MACHINE OPERATOR Impressions 09/22/2018 10:18 AM SILK WASHING MACHINE OPERATOR Radiographic localization Electronically signed by: Beka Draper M.D. Narrative 09/22/2018 10:18 AM SILK WASHING MACHINE OPERATOR RESULT: EXAMINATION: XR KNEE LEFT 1 OR [...] documented in this encounter Visit Diagnoses Diagnosis Subchondral insufficiency fracture of condyle of left femur with delayed healing, subsequent encounter Closed fracture of left tibial plateau with delayed healing Closed nondisplaced osteochondral fracture of left patella with delayed healing Closed fracture of right tibial plateau with delayed healing Closed osteochondral fracture of patella, right, with delayed healing, subsequent encounter Complex tear of medial meniscus of left knee as current injury, subsequent encounter Complex tear of medial meniscus of right knee as current injury, subsequent encounter Closed fracture of left tibial plateau with delayed healing Closed fracture of right tibial plateau with delayed healing Closed nondisplaced osteochondral fracture of left patella with delayed healing Closed osteochondral fracture of patella, right, with delayed healing, subsequent encounter Complex tear of medial meniscus of left knee as current injury Complex tear of medial meniscus of right knee as current injury Subchondral insufficiency fracture of condyle of left femur (HCC) documented in this encounter Administered Medications [...] 0830, For 1 dose, Pre-Op, Indications: Pre-Emptive AnalgesiaIndications:Pre-Emptive Analgesia Given 09/22/2018 8:21 AM SILK WASHING MACHINE OPERATOR 1,000 mg fentaNYL (SUBLIMAZE) 50 mcg/mL preservative free injection [...] analgesic., Indications: PainIndications:Pain Given 09/22/2018 10:54 AM SILK WASHING MACHINE OPERATOR 50 mcg fentaNYL (SUBLIMAZE) preservative free injection 50 mcg 50 mcg, intravenous, Every 10 min PRN, 1st line for pain, Starting on Jo 09/22/18 at 1039, Phase I, Notify Anesthesiologist if total PACU dose reaches 100 mcg and pain score 5/10 or more., Indications: PainIndications:Pain Given 09/22/2018 11:30 AM SILK WASHING MACHINE OPERATOR 50 mcg Given 09/22/2018 11:19 AM SILK WASHING MACHINE OPERATOR 50 mcg Given 09/22/2018 11:04 AM SILK WASHING MACHINE OPERATOR 50 mcg ketorolac (TORADOL) 30 mg/mL (1 mL) injection - ADS Override Pull Starting on Jo 09/22/18 at 1045, For 1 dose, AMBREEN SMITH: cabinet override ketorolac (TORADOL) injection 15 mg 15 mg, intravenous, Once, On Jo 09/22/18 at 1130, For 1 dose, Phase I, For Adult IV push, administer over 15 seconds Given 09/22/2018 10:48 AM SILK WASHING MACHINE OPERATOR 15 mg Lactated Ringer's (LR) infusion 30 mL/hr, intravenous, Continuous, Starting on Jo 09/22/18 at 0830 New Bag 09/22/2018 8:55 AM SILK WASHING MACHINE OPERATOR oxyCODONE-acetaminophen (PERCOCET) 7.5-325 mg per tablet - ADS Override Pull Starting on Jo 09/22/18 at 1154, For 1 dose, AMBREEN SMITH: cabinet override oxyCODONE-acetaminophen (PERCOCET) 7.5-325 mg per tablet 2 tablet 2 tablet, oral, Once, On Jo 09/22/18 at 1300, For 1 dose, Phase I, Indications: PainIndications:Pain Given 09/22/2018 12:17 PM SILK WASHING MACHINE OPERATOR 2 tablets documented in this encounter Discontinued Medications Medication [...] Recently Administered Medications Times are shown in SILK WASHING MACHINE OPERATOR. Scheduled Medication Order 09/20/2018 09/21/2018 09/22/2018 acetaminophen (TYLENOL) tablet 1,000 mg (COMPLETED) 1,000 mg, oral, Once, On Jo 09/22/18 at 0830, For 1 dose, Pre-Op, Indications: Pre-Emptive Analgesia 0821 (Given - Provid er: Byron Ruiz RN) ceFAZolin (ANCEF) 1000 mg in 10 mL sterile water (premix) (COMPLETED) 2,000 mg, intravenous, at 400 mL/hr, Administer over 3 Minutes, Once, On Jo 18 at 0830, For 1 dose, Pre-Op, Indications: Prophylaxis, Surgical 0912 (Given - Provid er: Danielle Godinez CRNA) ketorolac (TORADOL) injection 15 mg (COMPLETED) 15 mg, intravenous, Once, On Jo 18 at 1130, For 1 dose, Phase I, [...] Pain 1104 (Given - Provid er: Ambreen Alexis RN)1119 (Given - Provider: Ambreen Alexis RN)1130 (Given - Provider: Ambreen Alexis, MARAH) sodium chloride 0.9 % irrigation (CANCELED) As [...] %) nebulizer solution 2.5 mg 1 09/22/2018 bupivacaine (MARCAINE) 0.25 % (2.5 mg/mL) preservative free injection 1 09/22/2018 ceFAZolin (ANCEF) 1 gram/10 mL IV premix - ADS Override Pull 1 09/22/2018 ceFAZolin (ANCEF) 1000 mg in 10 mL sterile water (premix) 1 09/22/2018 ceFAZolin (ANCEF) 2000 mg in 50 mL dextrose (premix) 1 09/22/2018 diphenhydrAMINE (BENADRYL) i njection 12.5 mg 1 09/22/2018 EPINEPHrine injection 1 09/22/2018 fentaNYL (SUBLIMAZE) 50 mcg/ mL preservative free injection - ADS Override Pull 1 09/22/2018 Lactated Ringer's (LR) infusion 1 8 Lactated Ringer's (LR) infus ion - ADS Override Pull 1 09/22/2018 midazolam (VERSED) 1 mg/mL p reservative free injection - ADS Override Pull 1 09/22/2018 naloxone (NARCAN) 0.4 mg/mL injection 0.04-0.4 mg 1 09/22/2018 sodium chloride 0.9 % irrigation 1 09/22/20 18 sodium chloride 0.9% flush 0.5-20 mL 1 [...] 09/22/2018 documented in this encounter Care Teams Vehicle Calibration Engineer Relationship Specialty [place] [address] [facility] [address] [place] [address] PCP - General 11/12/16 03/11/22 documented as of this encounter
--- OUTSIDE RECORDS SUMMARY | 2024-10-11 02:03 | XMS_ITS | Encounter Summary ---
Author Organization [facility] Medical Group Address [address] [facility] [address] [place] [address] Care Team Providers Care Black Leather Trimmer Name Role Phone Santino Funk MD Primary Care Provider + Reason for Visit * Reason Comments Post-op Post-op Encounter Details Date Type Department Care Team (Latest Contact Info) Description 11/22/2018 8:15 AM WHEEL ROLLER Office Visit [facility] [address] [facility] [address] [place] [address] [place] [address] [facility] [address] [place] [address] Primary osteoarthritis of left knee (Primary Dx); Complex tear of medial meniscus of left knee as current injury, subsequent encounter; Complex tear of medial meniscus of right knee as current injury, subsequent encounter; Subchondral insufficiency fracture of condyle of left femur with delayed healing, subsequent encounter; Closed fracture of left tibial plateau with delayed healing; Closed fracture of right tibial plateau with delayed healing Social History Tobacco Use Types Packs/Day Years Used Date Smoking Tobacco: Former Smokeless Tobacco: Never Alcohol Use Standard Drinks/Week Comments Yes 0 (1 standard drink = 0.6 oz pur e alcohol) Sex and Gender Information Value Date Recorded Sex Assigned at Not on file Legal Sex Male 3:25 PM WHEEL ROLLER Gender Identity Not on file Sexual Orientation Not on file documented as of this encounter Last Filed Vital Signs Vital Sign Reading Time Taken Comments Blood Pressure - - Pulse - - Temperature - - Respiratory Rate - - Oxygen Saturation - - Inhaled Oxygen Concentration - - Weight 98 kg (216 lb) 11/22/2018 8:33 AM WHEEL ROLLER Height 182.9 cm (6') 11/22/2018 8:33 AM WHEEL ROLLER Body Mass Index 29.29 11/22/2018 8:33 AM WHEEL ROLLER documented in this encounter Progress Notes * Jossie Montalvo PA - 11/22/2018 8:15 AM CST Images from the original note were not included. POST OP VISIT Subjective CHIEF COMPLAINT He had concerns including Post-op of the Left Knee and Post-op of the Right Knee. HISTORY OF PRESENT ILLINESS This is a postop visit for bilateral knee arthroscopies and subchondroplasty. At his last office visit he had an injection in his left knee. He has 3 more therapy visits remaining. He states that hisknees feel good, he is able to walk and do more activities and he has been able to do for very longtime and has no pain in his knees. MEDICATIONS He has a current medication list which includes the following prescription(s): ergocalciferol, hydrocodone-acetaminophen, meloxicam, omeprazole, oxycodone- acetaminophen, sildenafil (antihypertensive), and temazepam. ALLERGIES He has No Known Allergies. PHYSICAL EXAM Exam of the right knee demonstrates a slightly varus attitude, no joint effusion or soft tissue swelling. All incisions are well healed. Motion 0-125 degrees. No ligamentous laxity with varus or valgus testing. Exam left knee demonstrates no joint effusion or soft tissue swelling. All incisions are well healed. Slightly varus attitude is present. He can extend the knee fully and flex further to 120??. REVIEW OF X-RAYS/STUDIES/LABS (IF ORDERED) Assessment/Plan Abrahan was seen today for post-op and post-op. Diagnoses and all orders for this visit: Primary osteoarthritis of left knee Complex tear of medial meniscus of left knee as current injury, subsequent encounter Complex tear of medial meniscus of right knee as current injury, subsequent encounter Subchondral insufficiency fracture of condyle of left femur with delayed healing, subsequent encounter Closed fracture of left tibial plateau with delayed healing Closed fracture of right tibial plateau with delayed healing Plan Patient has done well from his bilateral knee arthroscopies. He has improved and he is satisfied result of surgery. Told him he could manage his arthritis with periodic cortisone injections as needed, ultimately he may require knee replacement at some point in future but currently he is doing well.He will follow up here as needed. LORI Craig L ROLLER documented in this encounter Plan of Treatment Upcoming Encounters Date Type Department Care Team (Latest Contact Info) Description 10/23/2024 10:00 AM WHEEL ROLLER Hospital Encounter [facility] Operating Room [address] [place] [address] [place] [address] [address] 10/23/2024 10:00 AM WHEEL ROLLER - 10/23/2024 1:00 PM WHEEL ROLLER Surgery [facility] Operating Room [address] [place] [address] [place] [address] [address] ARTHROPLASTY TOTAL KNEE LEFT Scheduled Procedures Name Priority Associated Diagnoses Date/Ti me ARTHROPLASTY TOTAL KNEE left knee osteoarthritis 10/23/2024 10:00 AM WHEEL ROLLER ESOPHAGOGASTRODUODENOSCOPY Dysphagia, unspecified type documented as of this encounter Visit Diagnoses Diagnosis Primary osteoarthritis of left knee- Primary Complex tear of medial meniscus of left knee as current injury, subsequent encounter Complex tear of medial meniscus of right knee as current injury, subsequent encounter Subchondral insufficiency fracture of condyle of left femur with delayed healing, subsequent encounter Closed fracture of left tibial plateau with delayed healing Closed fracture of right tibial plateau with delayed healing documented in this encounter Historical Medications * This list may reflect changes made after this encounter. sildenafil, antihypertensive, (REVATIO) 20 mg tabletIndications: erectile dysfunction Take 20 mg by mouth daily as needed 5 11/11/2018 09/11/2021 HYDROcodone-acetam inophen (NORCO) 7.5-325 mg per tabletIndications: Pain TK 1 T PO Q 6 H PRN 0 10/12/2018 12/14/2019 added in this encounter Care Teams Black Leather Trimmer Relationship Specialty [place] [address] [facility] [address] [place] [address] PCP - General 11/12/16 03/11/22 documented as of this encounter
--- OUTSIDE RECORDS SUMMARY | 2024-10-11 02:03 | XMS_ITS | Encounter Summary ---
Author Organization [facility] Address [address] [facility] [address] [place] [address] Care Team Providers Care Spotlight Operator Name Role Phone Santino Funk MD Primary Care Provider + Reason for Visit * Reason Comments Fall Patient reports a tw isting fall out of a chair with constant pain and swelling since Pain Edema Encounter Details Date Type Department Care Team (Latest Contact Info) Description 08/22/2018 9:00 AM MERCHANDISE FLOW TEAM LEADER Office Visit [facility] [address] [facility] [address] [place] [phone] [place] [address] [facility] [address] [place] [address] Primary osteoarthritis of left knee (Primary Dx); Acute medial meniscus tear of left knee, subsequent encounter Social History Tobacco Use Types Packs/Day Years Used Date Smoking Tobacco: Former Smokeless Tobacco: Never Alcohol Use Standard Drinks/Week Comments Yes 0 (1 standard drink = 0.6 oz pur e alcohol) Sex and Gender Information Value Date Recorded Sex Assigned at Not on file Legal Sex Male 3:25 PM MERCHANDISE FLOW TEAM LEADER Gender Identity Not on file Sexual Orientation Not on file documented as of this encounter Last Filed Vital Signs Vital Sign Reading Time Taken Comments Blood Pressure 120/80 08/22/2018 8:59 AM MERCHANDISE FLOW TEAM LEADER Pulse - - Temperature - - Respiratory Rate - - Oxygen Saturation - - Inhaled Oxygen Concentration - - Weight 102.5 kg (226 lb) 08/22/2018 8:59 AM MERCHANDISE FLOW TEAM LEADER Height 182.9 cm (6') 08/22/2018 8:59 AM MERCHANDISE FLOW TEAM LEADER Body Mass Index 30.65 08/22/2018 8:59 AM MERCHANDISE FLOW TEAM LEADER documented in this encounter Progress Notes * Jossie Montalvo PA - 08/22/2018 9:00 AM CST Images from the original note were not included. FOLLOW UP VISIT Subjective CHIEF COMPLAINT He had concerns including Pain and Edema of the Left Knee and Fall (Patient reports a twisting fallout of a chair with constant pain and swelling since). HISTORY OF PRESENT ILLINESS This is a follow-up visit for left knee pain. Patient had injection is last office visit. He statesthat may have helped somewhat but then he twists the knee and cause an exacerbation of swelling. Heactually tells me that the knee has swelled intermittently for quite some time, now the swelling isconstant even the meloxicam that he has been taking regularly does not help anymore. He takes hydrocodone periodically for this and states that really does not do much for the pain. He has difficultybending it and straightening it. It aches at night and makes it difficult to sleep. He remains swollen. MEDICATIONS He has a current medication list which includes the following prescription(s): doxycycline, ergocalciferol, hydrocodone-acetaminophen, loratadine, lorazepam, meloxicam, metoclopramide, omeprazole, and temazepam. ALLERGIES He has No Known Allergies. Review [...] EXAM Exam of the left knee demonstrates a 2+ joint effusion. No redness or warmth. He has got exquisite medial joint line tenderness. Range of motion is 3?? short of full extension with further flexion to115??. There is no laxity with varus or valgus testing, however he does have pain with valgus challenge at 30?? of flexion. 1+ anterior drawer with a firm endpoint. REVIEW OF X-RAYS/STUDIES/LABS (IF ORDERED) Assessment/Plan Abrahan was seen today for fall, pain and edema. Diagnoses and all orders for this visit: Primary osteoarthritis of left knee - MRI Knee Left WO Contrast; Future Acute medial meniscus tear of left knee, subsequent encounter - MRI Knee Left WO Contrast; Future Plan Patient has a painful swollen left knee that only responded temporarily to an injection. He had a twisting injury since his last office visit that seem to exacerbate things. MRI scan was ordered today to evaluate for internal derangement such as a meniscus tear. Follow-up will be after that is completed. LORI Craig HANDISE FLOW TEAM LEADER documented in this encounter Plan of Treatment Upcoming Encounters Date Type Department Care Team (Latest Contact Info) Description 10/23/2024 10:00 AM MERCHANDISE FLOW TEAM LEADER Hospital Encounter [facility] Operating Room [address] [place] [address] [place] [address] [address] 10/23/2024 10:00 AM MERCHANDISE FLOW TEAM LEADER - 10/23/2024 1:00 PM MERCHANDISE FLOW TEAM LEADER Surgery [facility] Operating Room [address] [place] [address] [place] [address] [address] ARTHROPLASTY TOTAL KNEE LEFT Scheduled Procedures Name Priority Associated Diagnoses Date/Ti me ARTHROPLASTY TOTAL KNEE left knee osteoarthritis 10/23/2024 10:00 AM MERCHANDISE FLOW TEAM LEADER ESOPHAGOGASTRODUODENOSCOPY Dysphagia, unspecified type documented as of this encounter Visit Diagnoses Diagnosis Primary osteoarthritis of left knee- Primary Acute medial meniscus tear of left knee, subsequent encounter documented in this encounter Care Teams Spotlight Operator Relationship Specialty Start Date End Date Hartrand[place], [place] [address] [address] PCP - General 11/12/16 03/11/22 documented as of this encounter
--- OUTSIDE RECORDS SUMMARY | 2024-10-11 02:03 | XMS_ITS | Encounter Summary ---
Author Organization [facility] Address [address] [place] [address] Care Team Providers Care Statement Request Clerk Name Role Phone Santino Funk MD Primary Care Provider + Encounter Details Date Type Department Care Team (Latest Contact Info) Description 09/22/2018 7:31 AM RN EMBEDDED Hospital Encounter [facility] [address] [place] [address] Discharge Disposition: Discharge to home or self care Social History Tobacco Use Types Packs/Day Years Used Date Smoking Tobacco: Former Smokeless Tobacco: Never Alcohol Use Standard Drinks/Week Comments Yes 0 (1 standard drink = 0.6 oz pur e alcohol) Sex and Gender Information Value Date Recorded Sex Assigned at Not on file Legal Sex Male 3:25 PM RN EMBEDDED Gender Identity Not on file Sexual Orientation [...] 01/21/2018 09/10/2020 documented as of this encounter Discharge Disposition Disposition Code Departure Means Destination Discharge to home or self care documented in this encounter Plan of Treatment Upcoming Encounters Date Type Department Care Team (Latest Contact Info) Description 10/23/2024 10:00 AM RN EMBEDDED Hospital Encounter [facility] Operating Room [address] [place] [address] [place] [id number] [place] [address] 10/23/2024 10:00 AM RN EMBEDDED - 10/23/2024 1:00 PM RN EMBEDDED Surgery [facility] Operating Room [address] [place] [address] [place] [address] [address] ARTHROPLASTY TOTAL KNEE LEFT Scheduled Procedures Name Priority Associated Diagnoses Date/Ti me ARTHROPLASTY TOTAL KNEE left knee osteoarthritis 10/23/2024 10:00 AM RN EMBEDDED ESOPHAGOGASTRODUODENOSCOPY Dysphagia, unspecified type documented as of this encounter Procedures Procedure Name Priority Date/Time Associated Diagnosis Comments FL FLUOROSCOPY < 1 HOUR IP Routine 09/22/2018 10:11 AM RN EMBEDDED documented in this encounter Results * FL Fluoroscopy < 1 Hour (09/22/2018 10:11 AM RN EMBEDDED) Narrative [facility] - 09/22/2018 10:11 AM RN EMBEDDED The images from this study are not interpreted by Radiology. ??Please refer to the physician's procedure / OR operative note. us George Seuplveda MD IMG FLUOROSCOPY PROCEDURE S Final Result [facility] documented in this encounter Visit Diagnoses Not on filedocumented in this encounter Care Teams Statement Request Clerk Relationship Specialty [place] [address] [place] [address] PCP - General 11/12/16 03/11/22 documented as of this encounter
--- OUTSIDE RECORDS SUMMARY | 2024-10-11 02:03 | XMS_ITS | Encounter Summary ---
Author Organization [facility] Address [address] [facility] [address] [place] [address] Care Team Providers Care Repairer Auto Clocks Name Role Phone Santino Funk MD Primary Care Provider + Reason for Referral * Diagnostic Imaging (Routine) - Closed Specialty Diagnoses / Procedures Referred By Contac t Referred To Contact Diagnoses Complex tear of medial meniscus of left knee as current injury, subsequent encounter Procedures XR Knee Left 3 Views George Sepulveda MD Phone: tel: fax: [facility] Referral ID Status Reason Start Date Expiration Date Visits Re quested Visits Authorized [id number] Closed 10/25/2018 05/05/2020 1 1 ITURE INSTALLER Reason for Visit * Diagnostic Imaging (Routine) - Closed Specialty Diagnoses / Procedures Referred By Contac t Referred To Contact Diagnoses Complex tear of medial meniscus of left knee as current injury, subsequent encounter Procedures XR Knee Left 3 Views George Sepulveda MD Phone: tel: fax: [facility] Referral ID Status Reason Start Date Expiration Date Visits Re quested Visits Authorized [id number] Closed 10/25/2018 05/05/2020 1 1 Encounter Details Date Type Department Care Team (Latest Contact Info) Description 10/25/2018 9:10 AM FURNITURE INSTALLER - 10/25/2018 11:59 PM FURNITURE INSTALLER Hospital Encounter [facility] [address] [facility] [address] [place] [address] Complex tear of medial meniscus of left knee as current injury, subsequent encounter Discharge Disposition: Discharge to home or self care Social History Tobacco Use Types Packs/Day Years Used Date Smoking Tobacco: Former Smokeless Tobacco: Never Alcohol Use Standard Drinks/Week Comments Yes 0 (1 standard drink = 0.6 oz pur e alcohol) Sex and Gender Information Value Date Recorded Sex Assigned at Not on file Legal Sex Male 3:25 PM FURNITURE INSTALLER Gender Identity Not on file Sexual Orientation Not on file documented as of this encounter Medications at Time of Discharge ergocalciferol (VITAMIN D) 50,000 unit capsuleIndication s:Vitamin D Deficiency,takes on Wednesday Take 50,000 Units by mouth once a week Pt not taking 12/30/2019 HYDROcodone-aceta minophen (NORCO) 7.5-325 mg per tabletIndications :Pain TK 1 T PO Q 6 H PRN 0 10/12/2018 12/14/2019 meloxicam (MOBIC) 15 mg tablet Take 1 tablet by mouth daily. 06/17/2018 12/14/2019 omeprazole (PriLOSEC) 20 mg capsule take 1 capsule by oral route every day before a meal 0 0 10/21/2016 10/13/2023 oxyCODONE-acetami nophen (PERCOCET) 7.5-325 mg per tabletIndications :Pain Take 1-2 tablets every 4 hours as needed for pain 60 tablet 10/12/2018 12/14/2019 temazepam (RESTORIL) 15 mg capsuleIndication s:Insomnia Take 15 mg by mouth nightly as needed for sleep 01/21/2018 09/10/2020 documented as of this encounter Discharge Disposition Disposition Code Departure Means Destination Discharge to home or self care documented in this encounter Plan of Treatment Upcoming Encounters Date Type Department Care Team (Latest Contact Info) Description 10/23/2024 10:00 AM FURNITURE INSTALLER Hospital Encounter [facility] Operating Room [address] [place] [address] [place] [address] [facility] [address] [place] [address] 10/23/2024 10:00 AM FURNITURE INSTALLER - 10/23/2024 1:00 PM FURNITURE INSTALLER Surgery [facility] Operating Room [address] [place] [address] [place] [address] [place] [address] ARTHROPLASTY TOTAL KNEE LEFT Scheduled Procedures Name Priority Associated Diagnoses Date/Ti me ARTHROPLASTY TOTAL KNEE left knee osteoarthritis 10/23/2024 10:00 AM FURNITURE INSTALLER ESOPHAGOGASTRODUODENOSCOPY Dysphagia, unspecified type documented as of this encounter Procedures Procedure Name Priority Date/Time Associated Diagnosis Comments XR KNEE LEFT 3 VIEWS Schedule Routine, Read Routine (OP Routine) 10/25/2018 9:11 AM FURNITURE INSTALLER Complex tear of medial meniscus of left knee as current injury, subsequent encounter documented in this encounter Results * XR Knee Left 3 Views (10/25/2018 9:11 AM FURNITURE INSTALLER) Anatomical Region Laterality Modality Lower Extremities, Knee Left Radiogra [facility] Imaging Narrative 10/25/2018 9:18 AM FURNITURE INSTALLER Radiographs of the left knee reviewed and interpreted these demonstrate stable osteoarthritis with [id number] grade 4 patellofemoral joint space narrowing grade 3 medial compartment narrowing and grade 2 lateral compartment narrowing. George Sepulveda MD IMG XR PROCEDURES Final R esult documented in this encounter Visit Diagnoses Diagnosis Complex tear of medial meniscus of left knee as current injury, subsequent encounter documented in this encounter Care Teams Repairer Auto Clocks Relationship Specialty [place] [address] [facility] [address] [place] [address] PCP - General 11/12/16 03/11/22 documented as of this encounter
--- OUTSIDE RECORDS SUMMARY | 2024-10-11 02:03 | XMS_ITS | Encounter Summary ---
Author Organization [facility] Healthcare Address [address] [place] [address] Care Team Providers Care Laborer Salvage Name Role Phone Santino Funk MD Primary Care Provider + Encounter Details Date Type Department Care Team (Late st Contact Info) Description 09/27/2018 2:45 PM PLANT MAINTENANCE TECHNICIAN Lab [facility] [address] [place] [address] [place] [address] [facility] [address] [place] [address] Discharge Disposition: Discharge to home or self care Social History Tobacco Use Types Packs/Day Years Used Date Smoking Tobacco: Former Smokeless Tobacco: Never Alcohol Use Standard Drinks/Week Comments Yes 0 (1 standard drink = 0.6 oz pur e alcohol) Sex and Gender Information Value Date Recorded Sex Assigned at Not on file Legal Sex Male 3:25 PM PLANT MAINTENANCE TECHNICIAN Gender Identity Not on file Sexual Orientation Not on file documented as of this encounter Discharge Disposition Disposition Code Departure Means Destination Discharge to home or self care documented in this encounter Plan of Treatment Upcoming Encounters Date Type Department Care Team (Latest Contact Info) Description 10/23/2024 10:00 AM PLANT MAINTENANCE TECHNICIAN Hospital Encounter [facility] Operating Room [address] [place] [address] [place] [address] [facility] [address] [place] [address] 10/23/2024 10:00 AM PLANT MAINTENANCE TECHNICIAN - 10/23/2024 1:00 PM PLANT MAINTENANCE TECHNICIAN Surgery [facility] Operating Room [address] [place] [address] [place] [address] [facility] [address] [place] [address] ARTHROPLASTY TOTAL KNEE LEFT Scheduled Procedures Name Priority Associated Diagnoses Date/Ti me ARTHROPLASTY TOTAL KNEE left knee osteoarthritis 10/23/2024 10:00 AM PLANT MAINTENANCE TECHNICIAN ESOPHAGOGASTRODUODENOSCOPY Dysphagia, unspecified type documented as of this encounter Procedures Procedure Name Priority Date/Time Associated Diagnosis Comments EGFR Routine 09/27/2018 2:36 PM PLANT MAINTENANCE TECHNICIAN URINALYSIS, MACROSCOPIC Routine 09/27/2018 2:36 PM PLANT MAINTENANCE TECHNICIAN BASIC METABOLIC PANEL Routine 09/27/2018 2:36 PM PLANT MAINTENANCE TECHNICIAN documented in this encounter Results * eGFR (09/27/2018 2:36 PM PLANT MAINTENANCE TECHNICIAN) eGFR 63 mL/min/1.7 3 m2 [facility] FISHER Comment: Interpretive Data Reference Interval Normal ?>/= 90 mL/min/1.73m2 Mildly decreased* ? 60 - 89 mL/min/1.73m2 Mildly to moderately decreased ?45 - 59 mL/min/1.73m2 Moderately to severely decreased ??30 - 44 mL/min/1.73m2 Severely decreased ?15 - 29 mL/min/1.73m2 Kidney Failure ?< 15 ??mL/min/1.73m2 *Relative to young adult level If -[place] multiply value by 1.16. Estimated glomerular filtration [...] was last reviewed 2016. Blood specimen (specimen) 09/27/2018 2:36 PM PLANT MAINTENANCE TECHNICIAN 09/27/2018 2:47 PM PLANT MAINTENANCE TECHNICIAN Narrative [facility] - 09/27/2018 3:42 PM PLANT MAINTENANCE TECHNICIAN us Santino Funk MD LAB BLOOD ORDERABLES Fin al Result [facility] [address] [address] Department [place] [address] * Basic metabolic panel (09/27/2018 2:36 PM PLANT MAINTENANCE TECHNICIAN) Sodium 141 135 - 145 mmol/L [facility] Potassium, pl 4.8 3.3 - 4.9 mmol/L [facility] Chloride 104 97 - 110 mmol/L [facility] CO2 28 22 - 32 mmol/L [facility] Anion gap 9 2 - 15 mmol/L [facility] BUN 19 8 - 25 mg/dL [facility] Creatinine 1.14 0.80 - 1.30 mg/dL [facility] Glucose 110 70 - 199 mg/dL [facility] Comment: Interpretive Data Fasting glucose [...] interpretive data was last revised 2017. Calcium 9.1 8.5 - 10.3 mg/dL [facility] Blood specimen (specimen) 09/27/2018 2:36 PM PLANT MAINTENANCE TECHNICIAN 09/27/2018 2:36 PM PLANT MAINTENANCE TECHNICIAN Narrative [facility] - 09/27/2018 3:42 PM PLANT MAINTENANCE TECHNICIAN Santino Funk MD LAB BLOOD ORDERABLES Fin al Result Performing Organization Address [facility] de Phone Number MARVIN FISHER [address] [address] [facility] [place] [address] * (ABNORMAL) Urinalysis, macroscopic (09/27/2018 2:36 PM PLANT MAINTENANCE TECHNICIAN) Color, ur Yellow Yellow [facility] Clarity, ur Clear Clear [facility] Specific gravity, ur 1.026(H) 1.010 - 1.025 [facility] pH, urine 5.0 [facility] Protein, ur ql Negative Negative [facility] Glucose, ur ql Negative Negative [facility] Ketones, ur Negative Negative [facility] Bilirubin, ur Negative Negative [facility] Blood, ur Negative Negative [facility] Urobilinogen, ur 4.0(A) <2.0 mg/dL [facility] Nitrite, ur Negative Negative [facility] Leukocyte esterase, ur Negative Negative [facility] Urine 09/27/2018 2:36 PM PLANT MAINTENANCE TECHNICIAN 09/27/2018 2:37 PM PLANT MAINTENANCE TECHNICIAN Narrative [facility] - 09/27/2018 3:22 PM PLANT MAINTENANCE TECHNICIAN ?? Urine pH is affected by diet, medications, systemic acid-base disturbances, and renal tubular function. ??pH may affect urinary stone formation. ??For example, urine pH below 6.0 may help reduce the tendency for calcium phosphate stones and pH greater than 6.0 may reduce the tendency for uric acid stone formation. Source: [facility] [employer]. Last revised 10-21-2017 us Santino Funk MD LAB MICROBIOLOGY - GENER AL ORDERABLES Final Result Performing Organization Address [facility] Co de Phone Number MRAVIN FISHER [address] [facility] [place] [address] documented in this encounter Visit Diagnoses Not on filedocumented in this encounter Care Teams Laborer Salvage Relationship Specialty [place] [address] [place] [address] PCP - General 11/12/16 03/11/22 documented as of this encounter
--- OUTSIDE RECORDS SUMMARY | 2024-10-11 02:03 | XMS_ITS | Encounter Summary ---
Author Organization [facility] Address [address] [place] [address] Care Team Providers Care Director Of Clinical Trials Name Role Phone Santino Funk MD Primary Care Provider + Reason for Visit * Reason Comments Post-op Post-op Encounter Details Date Type Department Care Team (Latest Contact Info) Description 12/07/2018 1:00 PM SKID WRAPPER Office Visit [facility] [address] [address] [place] [address] [facility] [address] [place] [address] Primary osteoarthritis of left knee (Primary Dx); Primary osteoarthritis of right knee Social History Tobacco Use Types Packs/Day Years Used Date Smoking Tobacco: Former Smokeless Tobacco: Never Alcohol Use Standard Drinks/Week Comments Yes 0 (1 standard drink = 0.6 oz pur e alcohol) Sex and Gender Information Value Date Recorded Sex Assigned at Not on file Legal Sex Male 3:25 PM SKID WRAPPER Gender Identity Not on file Sexual Orientation Not on file documented as of this encounter Last Filed Vital Signs Vital Sign Reading Time Taken Comments Blood Pressure - - Pulse - - Temperature - - Respiratory Rate - - Oxygen Saturation - - Inhaled Oxygen Concentration - - Weight 95.7 kg (211 lb) 12/07/2018 1:13 PM SKID WRAPPER Height 182.9 cm (6') 12/07/2018 1:13 PM SKID WRAPPER Body Mass Index 28.62 12/07/2018 1:13 PM SKID WRAPPER documented in this encounter Ordered Prescriptions Prescription Sig Dispense Quantity Refills Last Filled Start Date End Date methylPREDNISolone (MEDROL, AILIN,) 4 mg Dosepack Take 1 tablet (4 mg total) by mouth daily. Take as directed on package 1 packet 12/07/2018 0 documented in this encounter Progress Notes * Jossie Montalvo PA - 12/07/2018 1:00 PM CST Images from the original note were not included. POST OP VISIT Subjective CHIEF COMPLAINT He had concerns including Post-op of the Left Knee and Post-op of the Right Knee. HISTORY OF PRESENT ILLINESS This is a follow-up visit for bilateral knee arthroscopies, medial meniscectomies and subchondroplasty is of the tibia and femur medially. Patient was last seen 11/22/2018 and had x-rays of the left knee. He was doing extremely well at that office visit was happy with the results of his surgery. One month prior to that office visit he had received a cortisone injection in his left knee which gavehim good relief. X-rays demonstrate advanced varus arthritis in both knees. He states 3 or 4 days ago he began having increased pain in both knees. He reports the cold weather has greatly affected the pain in his knee joints, extending up to his mid thigh area. He was trying to walk from his car toa building yesterday evening, had to stop in the middle of a parking lot because his knees were so painful, and did know how he was going to be able to continue walking. He presents today on a walkercomplaining of bilateral knee pain left greater than right. Of note he currently has a infectionand is taking Cipro for this. He has been on the Cipro for about 7 days. Additionally has meloxicamprescription ran out about 10 days ago he, he tried to refill it at the time and it ran out of his pharmacy he stated his insurance would not pay for it for another 10 days so he has not been on thisfor about a week now. MEDICATIONS He has a current medication list which includes the following prescription(s): ciprofloxacin, ergocalciferol, hydrocodone-acetaminophen, meloxicam, omeprazole, oxycodone-acetaminophen, sildenafil (antihypertensive), and temazepam. ALLERGIES He has No Known Allergies. PHYSICAL EXAM Exam left knee demonstrates trace soft tissue swelling in the surgical portal sites. No palpable joint effusion. Slight varus attitude to the left knee. No tenderness or swelling at the patellar ligament. He can actively extend the knee against gravity without difficulty and has full extension, flexion further is to 125??. No laxity with varus or valgus testing. Tenderness is present at the medial joint line and medial tibial condyle. He walks slowly with a walker. Exam of the right knee demonstrates no joint effusion, trace medial soft tissue swelling. Well-healed surgical portals. No swelling or tenderness at the patellar ligament, he can extend the knee against gravity without pain in flexion further is to 125??. Tenderness is present on the medial joint line and medial tibia condyle. No laxity with varus or valgus testing. REVIEW OF X-RAYS/STUDIES/LABS (IF ORDERED) Previous x-rays taken in October demonstrate varus arthritis with near [id number] contact medially in each knee. Postsurgical changes are also noted. Assessment/Plan Abrahan was seen today for post-op and post-op. Diagnoses and all orders for this visit: Primary osteoarthritis of left knee Primary osteoarthritis of right knee Plan I think he is having a flare-up of arthritic pain in both knees. I do not see any evidence of patellar ligament inflammation that would potentially be related to Cipro antibiotic use. His pain is allmedially based which is where the x-rays indicate the problems are. He cannot yet get his meloxicamrefilled, I have sent a Medrol Dosepak to his pharmacy. Additionally is too soon to give the left knee and injection as he just had one about 6 weeks ago. He is fitted for a OA knee brace for the left knee as well as that is the more problematic side. I discussed with him that if the knee pain continues despite injections, medications arthroscopic surgery and bracing that the next option would beknee replacement. He would like to avoid this if possible. Will see him back in 2 weeks to check progress. LORI Craig Cosigned by George Sepulveda MD at 12/07/2018 2:14 PM SKID WRAPPER WRAPPER WRAPPER documented in this encounter Plan of Treatment Upcoming Encounters Date Type Department Care Team (Latest Contact Info) Description 10/23/2024 10:00 AM SKID WRAPPER Hospital Encounter [facility] Operating Room [address] [place] [address] [place] [address] [facility] [address] [place], [place] [id number] 10/23/2024 10:00 AM SKID WRAPPER - 10/23/2024 1:00 PM SKID WRAPPER Surgery [facility] Operating Room [address] [place] [address] [place] [address] [id number] ARTHROPLASTY TOTAL KNEE LEFT Scheduled Procedures Name Priority Associated Diagnoses Date/Ti me ARTHROPLASTY TOTAL KNEE left knee osteoarthritis 10/23/2024 10:00 AM SKID WRAPPER ESOPHAGOGASTRODUODENOSCOPY Dysphagia, unspecified type documented as of this encounter Visit Diagnoses Diagnosis Primary osteoarthritis of left knee- Primary Primary osteoarthritis of right knee documented in this encounter Historical Medications * This list may reflect changes made after this encounter. ciprofloxacin (CIPRO) 500 mg tablet TK 1 T PO BID 0 12/02/2018 12/14/2019 added in this encounter Care Teams Director Of Clinical Trials Relationship Specialty [place] [address] [facility] [address] [place] [address] PCP - General 11/12/16 03/11/22 documented as of this encounter
--- OUTSIDE RECORDS SUMMARY | 2024-10-11 02:03 | XMS_ITS | Encounter Summary ---
Author Organization [facility] Address [address] [place] [address] Care Team Providers Care Fire Technician Name Role Phone Santino Funk MD Primary Care Provider + Reason for Visit * Reason Comments Test Results Test Results Encounter Details Date Type Department Care Team (Latest Contact Info) Description 09/06/2018 8:15 AM ENVIRONMENTAL HEALTH MANAGER Office Visit [facility] [address] [place] [address] [place] [address] [facility] [address] [place] [address] Subchondral insufficiency fracture of condyle of left femur with delayed healing, subsequent encounter (Primary Dx); Complex tear of medial meniscus of left knee as current injury, subsequent encounter; Closed nondisplaced osteochondral fracture of left patella with delayed healing; Closed fracture of left tibial plateau with delayed healing; Closed fracture of right tibial plateau with delayed healing; Closed osteochondral fracture of patella, right, with delayed healing, subsequent encounter; Complex tear of medial meniscus of right knee as current injury, subsequent encounter; Primary osteoarthritis of left knee Social History Tobacco Use Types Packs/Day Years Used Date Smoking Tobacco: Former Smokeless Tobacco: Never Alcohol Use Standard Drinks/Week Comments Yes 0 (1 standard drink = 0.6 oz pur e alcohol) Sex and Gender Information Value Date Recorded Sex Assigned at Not on file Legal Sex Male 3:25 PM ENVIRONMENTAL HEALTH MANAGER Gender Identity Not on file Sexual Orientation Not on file documented as of this encounter Last Filed Vital Signs Vital Sign Reading Time Taken Comments Blood Pressure - - Pulse - - Temperature - - Respiratory Rate - - Oxygen Saturation - - Inhaled Oxygen Concentration - - Weight 101.6 kg (224 lb) 09/06/2018 8:22 AM ENVIRONMENTAL HEALTH MANAGER Height 182.9 cm (6') 09/06/2018 8:22 AM ENVIRONMENTAL HEALTH MANAGER Body Mass Index 30.38 09/06/2018 8:22 AM ENVIRONMENTAL HEALTH MANAGER documented in this encounter Progress Notes * George Sepulveda MD - 09/06/2018 8:15 AM CST Images from the original [...] will followup for surgery. George Sepulveda MD RONMENTAL HEALTH MANAGER documented in this encounter Plan of Treatment Upcoming Encounters Date Type Department Care Team (Latest Contact Info) Description 10/23/2024 10:00 AM ENVIRONMENTAL HEALTH MANAGER Hospital Encounter [facility] Operating Room [address] [place] [id number] [place] [address] [address] 10/23/2024 10:00 AM ENVIRONMENTAL HEALTH MANAGER - 10/23/2024 1:00 PM ENVIRONMENTAL HEALTH MANAGER Surgery [facility] Operating Room [address] [place] [address] [place] [address] [address] ARTHROPLASTY TOTAL KNEE LEFT Scheduled Procedures Name Priority Associated Diagnoses Date/Ti me ARTHROPLASTY TOTAL KNEE left knee osteoarthritis 10/23/2024 10:00 AM ENVIRONMENTAL HEALTH MANAGER ESOPHAGOGASTRODUODENOSCOPY Dysphagia, unspecified type documented as of this encounter Visit Diagnoses Diagnosis Subchondral insufficiency fracture of condyle of left femur with delayed healing, subsequent encounter- Primary Complex tear of medial meniscus of [...] subsequent encounter Primary osteoarthritis of left knee documented in this encounter Care Teams Fire Technician Relationship Specialty [place] [id number] [address] PCP - General 11/12/16 03/11/22 documented as of this encounter
--- OUTSIDE RECORDS SUMMARY | 2024-10-11 02:03 | XMS_ITS | Encounter Summary ---
Author Organization [facility] Healthcare Address [address] [place] [address] Care Team Providers Care Hi Lift Operator Name Role Phone Santino Funk MD Primary Care Provider + Reason for Referral * Diagnostic Imaging (Routine) - Closed Specialty Diagnoses / Procedures [facility] Referred To Contact Radiology Diagnoses Acute medial meniscus tear of left knee, subsequent encounter Procedures MRI Knee Right WO Contrast George Sepulveda MD Phone: tel: fax: [facility] Referral ID Status Reason Start Date Expiration Date Visits Re quested Visits Authorized [id number] Closed 08/22/2018 03/02/2020 1 1 RY ASSOCIATE * Diagnostic Imaging (Routine) - Closed Specialty Diagnoses / Procedures Referred By [facility] Referred To Contact Radiology Diagnoses Primary osteoarthritis of left knee Procedures MRI Knee Left WO Contrast George Sepulveda MD Phone: tel: fax: [facility] Referral ID Status Reason Start Date Expiration Date Visits Re quested Visits Authorized [id number] Closed 08/16/2018 02/25/2020 1 1 RY ASSOCIATE Reason for Visit * Diagnostic Imaging (Routine) - Closed Specialty Diagnoses / Procedures Referred By [facility] Referred To Contact Radiology Diagnoses Primary osteoarthritis of left knee Procedures MRI Knee Left WO Contrast George Sepulveda MD Phone: tel: fax: [facility] Referral ID Status Reason Start Date Expiration Date Visits Re quested Visits Authorized [id number] Closed 08/16/2018 02/25/2020 1 1 Encounter Details Date Type Department Care Team (Latest Contact Info) Description 08/24/2018 4:15 PM BAKERY ASSOCIATE - 08/24/2018 11:59 PM BAKERY ASSOCIATE Hospital Encounter [facility] Imaging and Radiology [address] [place] [phone] [place] [address] [address] Primary osteoarthritis of left knee; Acute medial meniscus tear of left knee, subsequent encounter Discharge Disposition: Discharge to home or self care Social History Tobacco Use Types Packs/Day Years Used Date Smoking Tobacco: Former Smokeless Tobacco: Never Alcohol Use Standard Drinks/Week Comments Yes 0 (1 standard drink = 0.6 oz pur e alcohol) Sex and Gender Information Value Date Recorded Sex Assigned at Not on file Legal Sex Male 3:25 PM [facility] Gender Identity Not on file Sexual Orientation Not on file documented as of this encounter Medications at Time of Discharge doxycycline (VIBRAMYCIN) 100 mg capsule Take 100 mg by mouth 2 (two) times a day. 09/19/2018 ergocalciferol (VITAMIN D) 50,000 unit capsuleIndication s:Vitamin D Deficiency,takes on Wednesday Take 50,000 Units by mouth once a week Pt not taking 12/30/2019 HYDROcodone-aceta minophen (NORCO) 7.5-325 mg per tabletIndications :Pain 0 06/17/2018 09/22/2018 loratadine 10 mg capsule Take by mouth. 09/19/2018 LORazepam (ATIVAN) 1 mg tablet Take 1 mg by mouth every 6 (six) hours as needed for anxiety. 09/19/2018 meloxicam (MOBIC) 15 mg tablet Take 1 tablet by mouth daily. 06/17/2018 12/14/2019 metoclopramide (REGLAN) 10 mg tablet Take 10 mg by mouth 4 (four) times a day. 09/19/2018 omeprazole (PriLOSEC) 20 mg capsule take 1 capsule by oral route every day before a meal 0 0 10/21/2016 10/13/2023 temazepam (RESTORIL) 15 mg capsuleIndication s:Insomnia Take 15 mg by mouth nightly as needed for sleep 01/21/2018 09/10/2020 documented as of this encounter Discharge Disposition Disposition Code Departure Means Destination Discharge to home or self care documented in this encounter Plan of Treatment Upcoming Encounters Date Type Department Care Team (Latest Contact Info) Description 10/23/2024 10:00 AM BAKERY ASSOCIATE Hospital Encounter [facility] Operating Room [address] [place] [address] [place] [address] [address] 10/23/2024 10:00 AM BAKERY ASSOCIATE - 10/23/2024 1:00 PM BAKERY ASSOCIATE Surgery [facility] Operating Room [address] [place] [address] [place] [address] [address] ARTHROPLASTY TOTAL KNEE LEFT Scheduled Procedures Name Priority Associated Diagnoses Date/Ti me ARTHROPLASTY TOTAL KNEE left knee osteoarthritis 10/23/2024 10:00 AM BAKERY ASSOCIATE ESOPHAGOGASTRODUODENOSCOPY Dysphagia, unspecified type documented as of this encounter Procedures Procedure Name Priority Date/Time Associated Diagnosis Comments MRI KNEE RIGHT WO CONTRAST Schedule Routine, Read Routine (OP Routine) 08/24/2018 7:31 PM BAKERY ASSOCIATE Acute medial meniscus tear of left knee, subsequent encounter MRI KNEE LEFT WO CONTRAST Schedule Routine, Read Routine (OP Routine) 08/24/2018 6:09 PM BAKERY ASSOCIATE Primary osteoarthritis of left knee documented in this encounter Results * MRI Knee Right WO Contrast (08/24/2018 7:31 PM BAKERY ASSOCIATE) Anatomical Region Laterality Modality Lower Extremities Right Magnetic Reson ance 08/25/2018 4:04 PM BAKERY ASSOCIATE Impressions 08/25/2018 4:11 PM BAKERY ASSOCIATE 1. ??Medial meniscus tear. 2. 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 Electronically signed by: Martir Yang M.D. Narrative 08/25/2018 4:11 PM BAKERY ASSOCIATE RESULT: Examination: MRI right knee without contrast History: Other tear of medial meniscus, current injury, left knee, subsequent encounter Technique: Multiplanar multisequence magnetic resonance imaging examination of the right knee was performed without intravenous contrast. Comparison:None Findings: There is full-thickness cartilage loss involving the apical and medial patellar facets. ??The extensor mechanism is normal. ??The patellofemoral alignment is anatomical. ??The collateral and cruciate ligaments are normal. ??There is no postero-lateral or posterior medial corner injury. ??The lateral meniscus is unremarkable. ??There is grade II chondromalacia in the lateral joint compartment. There is a parrot-beak tear involving the posterior body and posterior horn of the medial meniscus. ??There is full-thickness cartilage loss in the medial joint compartment, at the weightbearing surfaces of the femur and tibia. Procedure Note Martir Yang MD - 08/25/2018 RESULT: Examination: MRI right knee without contrast History: Other tear of medial meniscus, current injury, left knee, subsequent encounter Technique: Multiplanar multisequence magnetic resonance imaging examination of the right knee was performed without intravenous contrast. Comparison:None Findings: There is full-thickness cartilage loss involving the apical and medial patellar facets. The extensor mechanism is normal. The patellofemoral alignment is anatomical. The collateral and cruciate ligaments are normal. There is no postero-lateral or posterior medial corner injury. The lateral meniscus is unremarkable. There is grade II chondromalacia in the lateral joint compartment. There is a parrot-beak tear involving the posterior body and posterior horn of the medial meniscus. There is full-thickness cartilage loss in the medial joint compartment, at the weightbearing surfaces of the femur and tibia. IMPRESSION: 1. Medial meniscus tear. 2. 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 Electronically signed by: Martir Yang M.D. us George Sepulveda MD IMG MRI PROCEDURES Final Result * MRI Knee Left WO Contrast (08/24/2018 6:09 PM BAKERY ASSOCIATE) Anatomical Region Laterality Modality Lower Extremities Left Magnetic Reson ance 08/25/2018 2:54 PM BAKERY ASSOCIATE Impressions 08/26/2018 9:47 AM BAKERY ASSOCIATE 1. ??Degenerative tear involving the body and posterior horn of the medial meniscus. 2. 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 3. ??5 mm osteochondral lesion of the medial femoral condyle, associated with an intra-articular fluid collection, which could represent a ganglion cyst. Electronically signed by: Martir Yang M.D. Narrative 08/26/2018 9:47 AM BAKERY ASSOCIATE RESULT: Examination: MRI left knee without contrast [...] Visit Diagnoses Diagnosis Primary osteoarthritis of left knee Acute medial meniscus tear of left knee, subsequent encounter documented in this encounter Care Teams Hi Lift Operator Relationship Specialty [place] [address] [address] PCP - General 11/12/16 03/11/22 documented as of this encounter
--- OUTSIDE RECORDS SUMMARY | 2024-10-11 02:03 | XMS_ITS | Encounter Summary ---
Author Organization [facility] Healthcare Address [address] [place] [address] Care Team Providers Care Front End Web Designer Name Role Phone Santino Funk MD Primary Care Provider + Reason for Visit * Reason Comments Abdominal Pain started last night, couldn't have a BM, couldn't eat, OTC meds didn't work Nausea Constipation Encounter Details Date Type Department Care Team (Late st Contact Info) Description 12/10/2018 1:39 PM ENROLLER - 12/10/2018 4:37 PM [facility] Emergency [facility] Emergency Department [address] [place] [address] [place] [address] [facility] [address] [place] [address] Constipation, unspecified constipation type (Primary Dx) Discharge Disposition: Discharge to home or self care Social History Tobacco Use Types Packs/Day Years Used Date Smoking Tobacco: Former Smokeless Tobacco: Never Alcohol Use Standard Drinks/Week Comments Yes 0 (1 standard drink = 0.6 oz pur e alcohol) Sex and Gender Information Value Date Recorded Sex Assigned at Not on file Legal Sex Male 3:25 PM ENROLLER Gender Identity Not on file Sexual Orientation Not on file documented as of this encounter Last Filed Vital Signs Vital Sign Reading Time Taken Comments Blood Pressure 168/94 12/10/2018 3:45 PM ENROLLER Pulse 53 12/10/2018 3:45 PM ENROLLER Temperature 36.7 ??C (98.1 ??F) 12/10/2018 1:38 PM CS T Respiratory Rate 20 12/10/2018 1:38 PM ENROLLER Oxygen Saturation 97% 12/10/2018 3:45 PM ENROLLER Inhaled Oxygen Concentration - - Weight 99.8 kg (220 lb) 12/10/2018 1:38 PM ENROLLER Height 182.9 cm (6') 12/10/2018 1:38 PM ENROLLER Body Mass Index 29.84 12/10/2018 1:38 PM ENROLLER documented in this encounter Discharge Instructions * Discharge Instructions* Betina Bray MD - 12/10/2018 3:59 PM ENROLLER Drink plenty of fluids. Add more fiber to your diet. Take medications as prescribed LLER * Attachments The following attachments cannot be sent through Care Everywhere. * Constipation (Adult) (Welsh) documented in this encounter Medications at Time [...] 01/21/2018 0 documented as of this encounter Ordered Prescriptions Prescription Sig Dispense Quantity Refills Last Filled Start Date End Date ondansetron ODT (ZOFRAN-ODT) 4 mg disintegrating tablet Dissolve 1 tablet for mild to moderate nausea or vomiting or 2 tablets for severe nausea or vomiting oral twice a day as needed. 20 tablet 12/10/2018 0 docusate sodium (COLACE) 100 mg capsuleIndications:c onstipation Take 1 capsule (100 mg total) by mouth 2 (two) times a day. 30 capsule 12/10/2018 2 polyethylene glycol (MIRALAX) 17 gram/dose powderIndications:co nstipation Mix 1 scoop (17 g) in 8 oz of water and drink daily. 85 g 12/10/2018 1 documented in this encounter Discharge Disposition Disposition Code Departure Means Destination Discharge to home or self care documented in this encounter ED Notes * Betina Bray MD - 12/10/2018 2:18 PM CST HPI Chief Complaint Patient presents with ??? Abdominal Pain started last night, couldn't have a BM, couldn't eat, OTC meds didn't work ??? Nausea ??? Constipation 1:52 PM 12/10/2018: 74 y/o male pt with a h/o GERD, asthma, arthritis and multiple other significant medical problems presents to the ED c/o LUQ abdominal pains onset last night. His pains have progressively worsened since waking up this morning. He reports of nausea and constipation however he had a small bowel movement today. Incidentally the pt states he has been taking a lot of antibiotics for a penis infection recently. Pt also had knee surgery on both knees. No other complaints or symptoms mentioned at this time. Patient History Patient Active Problem List Diagnosis [...] HERNIA REPAIR 1980 Hiatal Hernia repair ??? [place] ABDOMEN SURGERY PROC UNLISTED Hernia Repair - [...] Father ??? Heart attack Sister Social History Substance Use Topics ??? Smoking status: Former Smoker ??? Smokeless tobacco: Never Used ??? Alcohol use Yes Social History Social History Narrative Caffeine use : (Added by Conv) Consumes alcohol : (Added by Conv) Review of Systems Review of Systems Constitutional: Negative for chills, fatigue and fever. HENT: Negative for congestion, ear discharge, ear pain, postnasal drip, sinus pain, sinus pressure and sore throat. Eyes: Negative for discharge, redness and visual disturbance. Respiratory: Negative for cough, chest tightness, shortness of breath and wheezing. Cardiovascular: Negative for chest pain and palpitations. Gastrointestinal: Positive for abdominal pain, constipation and nausea. Negative for blood in stool, diarrhea and vomiting. Endocrine: Negative for cold intolerance, polydipsia and polyuria. Genitourinary: Negative for difficulty urinating, dysuria, flank pain, hematuria and urgency. Musculoskeletal: Negative for back pain, joint swelling, myalgias, neck pain and neck stiffness. Skin: Negative for pallor and rash. Allergic/Immunologic: Negative for environmental allergies. Neurological: Negative for dizziness, facial asymmetry, speech difficulty, weakness, light-headedness, numbness and headaches. Hematological: Negative for adenopathy. Psychiatric/Behavioral: Negative for agitation, confusion and hallucinations. All other systems reviewed and are negative. Physical Exam ED Triage Vitals [12/10/18 1338] Temp Pulse Resp BP SpO2 36.7 ??C (98.1 ??F) 55 20 (!) 181/86 97 % Temp src Heart Rate Source Patient Position BP Location FiO2 (%) Oral -- -- -- -- Physical Exam Constitutional: He is oriented to person, place, and time. He appears well- developed and well-nourished. No distress. HENT: Head: Normocephalic and atraumatic. Mouth/Throat: No oropharyngeal exudate. Eyes: Pupils are equal, round, and reactive to light. Conjunctivae and EOM are normal. Neck: Neck supple. No tracheal deviation present. Cardiovascular: Normal rate and regular rhythm. Exam reveals no gallop and no friction rub. No murmur heard. Pulmonary/Chest: Effort normal and breath sounds normal. No respiratory distress. He has no wheezes. He has no rales. Abdominal: Soft. Bowel sounds are normal. He exhibits no distension. There is tenderness (LUQ and epigastric area). There is no rebound and no guarding. Musculoskeletal: Normal range of motion. He exhibits no edema, tenderness or deformity. Lymphadenopathy: He has no cervical adenopathy. Neurological: He is alert and oriented to person, place, and time. He displays normal reflexes. No cranial nerve deficit or sensory deficit. He exhibits normal muscle tone. Coordination normal. Skin: Skin is dry. Psychiatric: He has a normal mood and affect. His behavior is normal. Nursing note and vitals reviewed. MDM MDM Number of Diagnoses or Management Options Constipation, unspecified constipation type: Vitals: 12/10/18 1515 BP: 161/82 Pulse: 53 Resp: Temp: SpO2: 99% Labs Reviewed CBC WITH AUTO DIFFERENTIAL - Abnormal Result Value WBC 8.3 Hgb 15.3 Hct 46.0 Plt 230 MPV 10.7 RBC 4.61 MCV 99.8 (*) MCH 33.2 MCHC 33.3 RDW CV 13.2 RDW SD 48.5 (*) NRBC Abs 0.00 Narrative: COMPREHENSIVE METABOLIC PANEL Sodium 138 Potassium, pl 4.1 Chloride 102 CO2 25 Anion Gap 11 BUN 17 Creatinine 0.98 Glucose 103 Calcium 8.9 Bilirubin, total 0.5 Protein, pl 7.0 Albumin 3.7 Alk phos 121 ALT 36 AST 27 Narrative: LIPASE Lipase 17 Narrative: DIFFERENTIAL AUTO Neutrophil absolute 5.3 Immature granulocyte absolute 0.0 Lymphocytes absolute 2.2 Monocyte absolute 0.6 Eosinophils absolute 0.1 Basophils, abs 0.1 Neutrophils 64.2 Immature granulocytes 0.4 Lymphocytes 26.4 Monocytes 7.4 Eosinophils 0.8 Basophils 0.8 Narrative: EGFR GFR 75 Narrative: XR Abdomen Erect and or Decubitus 2 Views Final Result Moderate amount of colonic stool is noted, which may reflect constipation. Electronically signed by: Arpan Martin M.D. ED Course as of Dec 10 1600 Time: 12/10 1351 Comment: Pre-hypertension/Hypertension: The patient has been informed that they may have pre-hypertension or Hypertension based on a blood pressure reading in the Emergency Department. I recommend that the patient call the primary care provider listed on their discharge instructions or a physician of their choice this week to arrange follow up for further evaluation of possible pre- hypertension or Hypertension. By: Amaris Angelo Constipation, unspecified constipation type Amaris Angelo scribed for Betina Bray MD. I electronically signed this note at 2:18 PM on 12/10/2018. I, Betina Bray MD, have personally performed the services described in the documentation, reviewed the documentation, as recorded by the scribe in my presence, and it accurately and completely records my words and actions. Betina Bray MD 12/10/18 1601 LLER documented in this encounter Plan of Treatment Upcoming Encounters Date Type Department Care Team (Latest Contact Info) Description 10/23/2024 10:00 AM ENROLLER Hospital Encounter [facility] Operating Room [address] [place] [address] [place] [address] [id number] 10/23/2024 10:00 AM ENROLLER - 10/23/2024 1:00 PM ENROLLER Surgery [facility] Operating Room [address] [place] [address] [place] [address] [facility] [address] [place], [place] [id number] ARTHROPLASTY TOTAL KNEE LEFT Scheduled Procedures Name Priority Associated Diagnoses Date/Ti me ARTHROPLASTY TOTAL KNEE left knee osteoarthritis 10/23/2024 10:00 AM ENROLLER ESOPHAGOGASTRODUODENOSCOPY Dysphagia, unspecified type documented as of this encounter Procedures Procedure Name Priority Date/Time Associated Diagnosis Comments XR ABDOMEN ERECT AND OR DECUBITS 2 VIEWS ED 12/10/2018 2:47 PM ENROLLER EGFR STAT 12/10/2018 2:35 PM ENROLLER DIFFERENTIAL AUTO STAT 12/10/2018 2:3 5 PM ENROLLER CBC WITH AUTO DIFFERENTIAL STAT 12/10/2018 2:35 PM ENROLLER LIPASE STAT 12/10/2018 2:35 PM ENROLLER COMPREHENSIVE METABOLIC PANEL STAT 12/10/2018 2:35 PM ENROLLER documented in this encounter Results * XR Abdomen Erect and or Decubitus 2 Views (12/10/2018 2:47 PM ENROLLER) Anatomical Region Laterality Modality Body, Abdomen N/A Computed Radiogr aphy 12/10/2018 3:13 PM ENROLLER Impressions 12/10/2018 3:15 PM ENROLLER Moderate amount of colonic stool is noted, which may reflect constipation. Electronically signed by: Arpan Martin M.D. Narrative 12/10/2018 3:15 PM ENROLLER RESULT: EXAMINATION: ABDOMINAL RADIOGRAPH, 1 VIEW Date: [...] constipation. Electronically signed by: Arpan Martin M.D. us Betina Bray MD IMG XR PROCEDURES Final Result * eGFR (12/10/2018 2:35 PM ENROLLER) eGFR 75 mL/min/1.7 3 m2 MARVIN FISHER Comment: Interpretive Data Reference Interval Normal ?>/= 90 mL/min/1.73m2 Mildly decreased* ? 60 - 89 mL/min/1.73m2 Mildly to moderately decreased ?45 - 59 mL/min/1.73m2 Moderately to severely decreased ??30 - 44 mL/min/1.73m2 Severely decreased ?15 - 29 mL/min/1.73m2 Kidney Failure ?< 15 ??mL/min/1.73m2 *Relative to young adult level If -Emirati multiply value by 1.16. Estimated glomerular filtration [...] was last reviewed 2016. Blood specimen (specimen) 12/10/2018 2:35 PM ENROLLER 12/10/2018 2:42 PM ENROLLER Narrative MARVIN FISHER - 12/10/2018 3:04 PM ENROLLER Betina Bray MD LAB BLOOD ORDERABLES nal Result [facility] [address] Department [place] [address] * Differential, auto (12/10/2018 2:35 PM ENROLLER) Neutrophil abs 5.3 1.7 - 6.5 K/cumm [facility] Imm gran abs 0.0 0.0 - 0.1 K/cumm [facility] Lymphocyte abs 2.2 0.8 - 3.3 K/cumm [facility] Monocyte abs 0.6 0.2 - 0.8 K/cumm [facility] Eosinophil abs 0.1 0.0 - 0.5 K/cumm [facility] Basophil abs 0.1 0.0 - 0.1 K/cumm [facility] Neutrophil pct 64.2 % [facility] Comment: Interpretive Data Percent cell count reference ranges are not reported, since discordance with absolute values may lead to misinterpretation of CBC data. Current Interpretive Data was last revised on 2018. Imm gran pct 0.4 % [facility] Comment: Interpretive Data Percent cell count reference ranges are not reported, since discordance with absolute values may lead to misinterpretation of CBC data. Current Interpretive Data was last revised on 2018. Lymphocyte pct 26.4 % [facility] Comment: Interpretive Data Percent cell count reference ranges are not reported, since discordance with absolute values may lead to misinterpretation of CBC data. Current Interpretive Data was last revised on 2018. Monocyte pct 7.4 % [facility] Comment: Interpretive Data Percent cell count reference ranges are not reported, since discordance with absolute values may lead to misinterpretation of CBC data. Current Interpretive Data was last revised on 2018. Eosinophil pct 0.8 % [facility] Comment: Interpretive Data Percent cell count reference ranges are not reported, since discordance with absolute values may lead to misinterpretation of CBC data. Current Interpretive Data was last revised on 2018. Basophil pct 0.8 % [facility] Comment: Interpretive Data Percent cell count reference ranges are not reported, since discordance with absolute values may lead to misinterpretation of CBC data. Current Interpretive Data was last revised on 2018. Blood specimen (specimen) 12/10/2018 2:35 PM ENROLLER 12/10/2018 2:42 PM ENROLLER Narrative [facility] - 12/10/2018 3:18 PM ENROLLER Betina Bray MD LAB BLOOD ORDERABLES Fi nal Result Performing Organization Address [facility]/ZIP Co de Phone Number MARVIN FISHER [address] [address] Department [place] [address] * Lipase (12/10/2018 2:35 PM ENROLLER) Lipase 17 10 - 99 Units/L [facility] Blood specimen (specimen) 12/10/2018 2:35 PM ENROLLER 12/10/2018 2:42 PM ENROLLER Narrative [facility] - 12/10/2018 3:04 PM ENROLLER Betina Bray MD LAB BLOOD ORDERABLES Fi nal Result Performing Organization Address [facility] de Phone Number MARVIN FISHER [address] [address] Department [place] [address] * Comprehensive metabolic panel (12/10/2018 2:35 PM ENROLLER) Sodium 138 135 - 145 mmol/L [facility] Potassium, pl 4.1 3.3 - 4.9 mmol/L [facility] Chloride 102 97 - 110 mmol/L [facility] CO2 25 22 - 32 mmol/L [facility] Anion gap 11 2 - 15 mmol/L [facility] BUN 17 8 - 25 mg/dL [facility] Creatinine 0.98 0.80 - 1.30 mg/dL [facility] Glucose 103 70 - 199 mg/dL [facility] Comment: Interpretive [...] interpretive data was last revised 2017. Calcium 8.9 8.5 - 10.3 mg/dL [facility] Bilirubin, total 0.5 0.1 - 1.2 mg/dL [facility] Protein, pl 7.0 6.5 - 8.5 g/dL [facility] Albumin 3.7 3.5 - 5.0 g/dL [facility] Alk phos 121 40 - 130 Units/L [facility] ALT 36 7 - 55 Units/L [facility] AST 27 10 - 50 Units/L [facility] Blood specimen (specimen) 12/10/2018 2:35 PM ENROLLER 12/10/2018 2:42 PM ENROLLER Narrative [facility] - 12/10/2018 3:04 PM ENROLLER us Betina Bray MD LAB BLOOD ORDERABLES Fi nal Result [facility] [address] Department [place] [address] * (ABNORMAL) CBC with auto differential (12/10/2018 2:35 PM ENROLLER) WBC 8.3 3.8 - 9.9 K/cumm [facility] Hgb 15.3 13.0 - 17.5 g/dL [facility] Hct 46.0 38.9 - 50.3 % [facility] Plt 230 150 - 400 K/cumm [facility] MPV 10.7 9.1 - 12.3 fL [facility] RBC 4.61 4.30 - 5.80 M/cumm [facility] MCV 99.8(H) 81.3 - 96.4 fL [facility] MCH 33.2 27.1 - 33.3 pg [facility] MCHC 33.3 32.3 - 35.7 g/dL [facility] RDW CV 13.2 11.1 - 14.9 % [facility] RDW SD 48.5(H) 35.7 - 48.1 fL [facility] NRBC abs 0.00 0.00 - 0.01 K/cumm [facility] Blood specimen (specimen) 12/10/2018 2:35 PM ENROLLER 12/10/2018 2:42 PM ENROLLER Narrative MARVIN - 12/10/2018 2:53 PM ENROLLER us Betina Bray MD LAB BLOOD ORDERABLES Fi nal Result [facility] [address] Department [place] [address] documented in this encounter Visit Diagnoses Diagnosis Constipation, unspecified constipation type- Primary documented in this encounter Administered Medications Inactive Administered Medications - up to 3 most recent administrations Medication Order MAR Action Action Date Dose Rate Site al & mag hydroxide simethicone-lidocaine oral suspension mixture 40 mL, oral, Once, On 12/10/18 at 1358, For 1 dose Given 12/10/2018 3:15 PM ENROLLER 40 mL magnesium citrate oral solution 296 mL 296 mL, oral, Once, On 12/10/18 at 1553, For 1 dose Given 12/10/2018 4:33 PM ENROLLER 296 mL ondansetron (ZOFRAN) injection 4 mg 4 mg, intravenous, Administer over 2 Minutes, Once, On 12/10/18 at 1358, For 1 dose, Indications: Nausea, VomitingIndications:Nausea,Vomitin g Given 12/10/2018 3:15 PM ENROLLER 4 mg documented in this encounter Active and Recently Administered Medications Times are shown in ENROLLER. Scheduled Medication Order 12/08/2018 12/09/2018 12/10/2018 al & mag hydroxide simethicone-lidocaine oral suspension mixture (COMPLETED) 40 mL, oral, Once, On 12/10/18 at 1358, For 1 dose 1515 (Given - Provid er: Kavya Williamson RN) magnesium citrate oral solution 296 mL (COMPLETED) 296 mL, oral, Once, On 12/10/18 at 1553, For 1 dose 1633 (Given - Provid er: Kavya Williamson RN) ondansetron (ZOFRAN) injection 4 mg (COMPLETED) 4 mg, intravenous, Administer over 2 Minutes, Once, On 12/10/18 at 1358, For 1 dose, Indications: Nausea, Vomiting 1515 (Given - Provid er: Kavya Williamson RN) documented in this encounter Care Teams Front End Web Designer Relationship Specialty [place] [address] [address] PCP - General 11/12/16 03/11/22 documented as of this encounter
--- OUTSIDE RECORDS SUMMARY | 2024-10-11 02:03 | XMS_ITS | Encounter Summary ---
Author Organization [facility] Address [address] [facility] [address] [place] [address] Care Team Providers Care Apprentice Photographer Name Role Phone Santino Funk MD Primary Care Provider + Reason for Visit * Reason Onset Date Comments brace 12/08/2018 Encounter Details Date Type Department Care Team (Late st Contact Info) Description 12/08/2018 Telephone [facility] [address] [address] [place] [address] [address] brace Social History Tobacco Use Types Packs/Day Years Used Date Smoking Tobacco: Former Smokeless Tobacco: Never Alcohol Use Standard Drinks/Week Comments Yes 0 (1 standard drink = 0.6 oz pur e alcohol) Sex and Gender Information Value Date Recorded Sex Assigned at Not on file Legal Sex Male 3:25 PM HOSPITAL MORTICIAN Gender Identity Not on file Sexual Orientation Not on file documented as of this encounter Miscellaneous Notes * Telephone Encounter - Jacquie Penny - 12/08/2018 4:22 PM CST Patient informed. Mary Ellen is aware the patient will be coming in the morning. ITAL MORTICIAN * Telephone Encounter - Jossie Montalvo PA - 12/08/2018 3:02 PM CST Yes he can, he can come in to get it at his convenience ITAL MORTICIAN * Telephone Encounter - GuzmanebonyJacquie - 12/08/2018 1:59 PM CST Patient asking if he can get brace for his right knee? ITAL MORTICIAN documented in this encounter Plan of Treatment Upcoming Encounters Date Type Department Care Team (Latest Contact Info) Description 10/23/2024 10:00 AM HOSPITAL MORTICIAN Hospital Encounter [facility] Operating Room [address] [place] [address] [place] [address] [address] 10/23/2024 10:00 AM HOSPITAL MORTICIAN - 10/23/2024 1:00 PM HOSPITAL MORTICIAN Surgery [facility] Operating Room [address] [place] [address] [place] [address] [address] ARTHROPLASTY TOTAL KNEE LEFT Scheduled Procedures Name Priority Associated Diagnoses Date/Ti me ARTHROPLASTY TOTAL KNEE left knee osteoarthritis 10/23/2024 10:00 AM HOSPITAL MORTICIAN ESOPHAGOGASTRODUODENOSCOPY Dysphagia, unspecified type documented as of this encounter Visit Diagnoses Not on filedocumented in this encounter Care Teams Apprentice Photographer Relationship Specialty [place] [address] [address] PCP - General 11/12/16 03/11/22 documented as of this encounter
--- OUTSIDE RECORDS SUMMARY | 2024-10-11 02:03 | XMS_ITS | Encounter Summary ---
Author Organization [facility] Address [address] [facility] [address] [place] [address] Care Team Providers Care Meter Record Clerk Name Role Phone Santino Funk MD Primary Care Provider + Encounter Details Date Type Department Care Team (Late st Contact Info) Description 10/12/2018 Orders Only [facility] [address] [address] [place] [address] [address] Social History Tobacco Use Types Packs/Day Years Used Date Smoking Tobacco: Former Smokeless Tobacco: Never Alcohol Use Standard Drinks/Week Comments Yes 0 (1 standard drink = 0.6 oz pur e alcohol) Sex and Gender Information Value Date Recorded Sex Assigned at Not on file Legal Sex Male 3:25 PM REMOTE SENSING ADVISOR Gender Identity Not on file Sexual Orientation Not on file documented as of this encounter Ordered Prescriptions Prescription Sig Dispense Quantity Refills Last Filled Start Date End Date oxyCODONE-acetamin ophen (PERCOCET) 7.5-325 mg per tabletIndications: Pain Take 1-2 tablets every 4 hours as needed for pain 60 tablet 10/12/2018 0 documented in this encounter Plan of Treatment Upcoming Encounters Date Type Department Care Team (Latest Contact Info) Description 10/23/2024 10:00 AM REMOTE SENSING ADVISOR Hospital Encounter [facility] Operating Room [address] [place] [address] [place] [address] [address] 10/23/2024 10:00 AM REMOTE SENSING ADVISOR - 10/23/2024 1:00 PM [facility] Surgery [facility] Operating Room [address] [place] [address] [place] [address] [address] ARTHROPLASTY TOTAL KNEE LEFT Scheduled Procedures Name Priority Associated Diagnoses Date/Ti me ARTHROPLASTY TOTAL KNEE left knee osteoarthritis 10/23/2024 10:00 AM REMOTE SENSING ADVISOR ESOPHAGOGASTRODUODENOSCOPY Dysphagia, unspecified type documented as of this encounter Visit Diagnoses Not on filedocumented in this encounter Discontinued Medications Medication Sig Discontinue Reason Start Date End Da te oxyCODONE-acetaminophen (PERCOCET) 7.5-325 mg per tabletIndications:Pain Take 1-2 tablets every 4 hours as needed for pain Reorder 09/22/2018 10/12/2018 documented as of this encounter Care Teams Meter Record Clerk Relationship Specialty [place] [address] [facility] [place] [address] PCP - General 11/12/16 03/11/22 documented as of this encounter
--- OUTSIDE RECORDS SUMMARY | 2024-10-11 02:03 | XMS_ITS | Encounter Summary ---
Author Organization [facility] Address [address] [place] [address] Care Team Providers Care Heating Fixture Tender Name Role Phone Santino Funk MD Primary Care Provider + Encounter Details Date Type Department Care Team (Late st Contact Info) Description 09/22/2018 9:01 AM PLASTERING CONTRACTOR Anesthesia Event [facility] Operating Room [address] [place] [address] [place] [address] [place] [address] Isaac Jara MD [address] [place] [address] Anesthesia Record Procedure Summary Procedure Name Responsible Anesthesiologist Anesthesia Start Time Anesthesia Stop Time Bilateral knees arthroscopy partial medial menisectomy, left knee internal fixation femur, tibia and patella; right knee internal fixation tibia and patella (Bilateral: Knee) Luciano Lowery MD 09/22/18 0901 09/22/18 1042 Events Date Time Event Comment 09/22/2018 0814 0901 An Start 0901 An Start Data 0901 In Room 0906 An Induction The patient was reevaluated immediately before moderate or deep sedation use and before anesthesia induction. 0908 An LMA 0912 Anesthesia Ready 0937 Proc Start 1029 An Extubation 1031 Proc Fin 1034 an stop data 1036 Out of Room 1042 Handoff to RN I completed my handoff [...] disposition at the time of handoff: PACU 1042 An Stop Meds Name Total midazolam 2 mg fentaNYL 200 mcg propofol 230 mg ondansetron 4 mg lidocaine 2 % 100 mg dexamethasone 4 mg/ml 8 mg hydrALAZINE 10 mg ceFAZolin (ANCEF) 1000 mg in 10 mL steri le water (premix) 2,000 mg Lactated Ringer's (LR) infusion 800 mL * Agents Name O2 Air Sevoflurane Inspired Sevoflurane * Blood No blood administrations on file. Lines, Drains, and Airways Type Details Placement Removal Supraglottic Airway Placement Date: 09/22/18; Placement Time: 0908; Mask Ventilation: 1; Brand: LMA; Size: 5; Insertion Attempts: 1; Placement Verification: End tidal CO2; Comments: Easy LMA placement, atraumatic; Removal Date: 09/22/18; Removal Time: 1029 09/22/18 0908 by Danielle Godinez CRNA 09/22/18 1029 by Danielle Godinez CRNA RETIRED Surgical Site 09/22/18; 0948; Bilateral; Knee; 12/30/19 09/22/18 0948 by Joanie Goldman RN 12/30/19 0000 by Libby Navarrete RN Peripheral IV Placement Date: 09/22/18; Placement Time: 1040 (started in PRE OP); Catheter Size: 20 G; Orientation: Right; Location: Hand; Removal Date: 09/22/18; Removal Time: 1310; Removal Reason: Per protocol (tip intact) 09/22/18 1040 by Feli Alexis 09/22/18 1310 by Carolyne Ruiz RN documented in this encounter Social History Tobacco Use Types Packs/Day Years Used Date Smoking Tobacco: Former Smokeless Tobacco: Never Alcohol Use Standard Drinks/Week Comments Yes 0 (1 standard drink = 0.6 oz pur e alcohol) Sex and Gender Information Value Date Recorded Sex Assigned at Not on file Legal Sex Male 3:25 PM PLASTERING CONTRACTOR Gender Identity Not on file Sexual Orientation Not on file documented as of this encounter OR Notes * Anesthesia Postprocedure Evaluation - Luciano Lowery MD - 09/23/2018 10:01 AM CST Patient: Abrahan Gtz Jr. Procedure Summary Date: 09/22/18 Room / Location: OPERATING ROOM 9 / OPERATING ROOM Anesthesia Start: 900 Anesthesia Stop: 1041 Procedures: Bilateral knees arthroscopy partial medial menisectomy, left knee internal fixation femur, tibia and patella; right knee internal fixation tibia and patella (Bilateral Knee) Arthroscopy Knee Subchondroplasty Femoral Condyle (Left Knee) Diagnosis: (bilat medial menisus tear) Provider: George Sepulveda MD Responsible Provider: Luciano Lowery MD Anesthesia Type: general ASA Status: 3 Anesthesia Type: general Last vitals BP (!) 173/91 Pulse 80 Temp 36.7 ??C (98 ??F) (Temporal) Resp 17 SpO2 97% Anesthesia Post Evaluation Patient location during evaluation: PACU Patient participation: complete - patient participated Level of consciousness: arouses certified professional controller Pain score: 0 Pain management: adequate Airway patency: adequate Evidence of recall: no Anesthetic complications: no Cardiovascular status: acceptable Respiratory status: acceptable Hydration status: acceptable Pt is: normothermic Nausea/Vomiting status: none TERING CONTRACTOR * Anesthesia Preprocedure Evaluation - Isaac Jara MD - 09/20/2018 8:57 AM CST Anesthesia Evaluation Abrahan Gtz Jr. is a 74 y.o. male Procedure(s): Arthroscopy bilat Knee Partial Medial Menisectomy w/ perc internal fixation of medial femoral condyle assisted internal fixation medial tibial plateau internal fixaton patella HISTORY Past Medical History Information obtained from: patient and chart. Neurological + Seizures (Last 1997) - well controlled. + Psychiatric history - depression Cardiovascular Cardiac system: negative Respiratory + Asthma Dyspnea frequency: never. Rescue inhaler use: never. Hepatic / Heme Hepatic/Heme system: negative Gastrointestinal + GERD Renal / Renal/ system: negative Musculoskeletal/Pain + Osteoarthritis Endocrine / Other + Obesity (BMI >30) Pertinent negatives: rheumatological disease Functional Capacity Functional capacity: 4-6 METs Patient Active Problem List Diagnosis ??? Primary [...] HERNIA REPAIR 1980 Hiatal Hernia repair ??? CA ABDOMEN SURGERY PROC UNLISTED Hernia Repair - (Added by TW Conv) No Known Allergies HOME MEDICATIONS : acetaminophen ER (TYLENOL) 650 mg 8 hr tablet omeprazole (PriLOSEC) 20 mg capsule ergocalciferol (VITAMIN D) 50,000 unit capsule HYDROcodone-acetaminophen (NORCO) 7.5-325 mg per tablet meloxicam (MOBIC) 15 mg tablet temazepam (RESTORIL) 15 mg capsule No current facility-administered medications for this encounter. Current Outpatient Prescriptions: ??? acetaminophen ER (TYLENOL) 650 mg 8 hr tablet ??? omeprazole (PriLOSEC) 20 mg capsule ??? ergocalciferol (VITAMIN D) 50,000 unit capsule ??? HYDROcodone-acetaminophen (NORCO) 7.5-325 mg per tablet ??? meloxicam (MOBIC) 15 mg tablet ??? temazepam (RESTORIL) 15 mg capsule Social History Smoking Status ??? Former Smoker Smokeless Tobacco ??? Never Used Alcohol Use ??? Yes Drug Use No Family History Problem Relation Age of Onset ??? Heart failure Other Family history of Congestive heart failure; ??? Heart disease Other Family history of Heart disease; ??? Osteoarthritis Other Family history of Osteoarthritis; ??? Osteoporosis Other Family history of Osteoporosis; ??? Heart attack Mother ??? Heart attack Father ??? Heart attack Sister PAT Physical Exam There were no vitals filed for this visit. PT: No results found for requested labs [...] findings of the anesthesia pre-evaluation assessment dated: 09/22/2018. Airway Exam: Mallampati: II Cervical ROM: FROM TM distance: >4 Jaw ROM: full Cardiovascular Exam: Rate: regular Rhythm: regular EENT Exam: trachea midline Dental Exam: Appears intact Skin Exam: Skin is warm. Current state: Patient's current state is cooperative. Anesthesia Plan ASA 3 Planned anesthesia: General Team communication plan: LMA Induction: Induction: intravenous. Postoperative Plan: Postoperative administration opioids intended. No postoperative mechanical ventilation intended. Patient's planned disposition post procedure is Outpatient. Informed Consent: Discussed plan with attending. Anesthesia plan and risks discussed with patient and spouse. Consent and Attending signature: I and/or my designee have discussed the anesthesia plan, benefits, possible alternatives, parental presence at time of induction (if indicated), and clinically relevant risks that may include dental injury, unintentional awareness, and/or other complications. The patient and/or parent/legal guardian understand, and agree to proceed. All questions answered. TERING CONTRACTOR TERING CONTRACTOR documented in this encounter Plan of Treatment Upcoming Encounters Date Type Department Care Team (Latest Contact Info) Description 10/23/2024 10:00 AM PLASTERING CONTRACTOR Hospital Encounter [facility] Operating Room [address] [place] [address] [place] [address] [address] 10/23/2024 10:00 AM PLASTERING CONTRACTOR - 10/23/2024 1:00 PM PLASTERING CONTRACTOR Surgery [facility] Operating Room [address] [place] [address] [place] [address] [address] ARTHROPLASTY TOTAL KNEE LEFT Scheduled Procedures Name Priority Associated Diagnoses Date/Ti me ARTHROPLASTY TOTAL KNEE left knee osteoarthritis 10/23/2024 10:00 AM PLASTERING CONTRACTOR ESOPHAGOGASTRODUODENOSCOPY Dysphagia, unspecified type documented as of this encounter Visit Diagnoses Not on filedocumented in this encounter Administered Medications Inactive Administered Medications - up to 3 most recent administrations Medication Order MAR Action Action Date Dose Rate Site ceFAZolin (ANCEF) 1000 mg in 10 mL sterile water (premix) 2,000 mg, intravenous, at 400 mL/hr, Administer over 3 Minutes, Once, On Jo 09/22/18 at 0830, For 1 dose, Pre-Op, Indications: Prophylaxis, SurgicalIndications:Prophylaxis , Surgical Given 09/22/2018 9:12 AM PLASTERING CONTRACTOR 2,000 mg dexamethasone (DECADRON) injection intravenous, Administer over 2 Minutes, As needed, Starting on Jo 09/22/18 at 0913, Anesthesia Intra-op Given 09/22/2018 9:13 AM PLASTERING CONTRACTOR 8 mg fentaNYL (SUBLIMAZE) preservative free injection intravenous, As needed, Starting on Jo 09/22/18 at 0912, Anesthesia Intra-op Given 09/22/2018 10:14 AM PLASTERING CONTRACTOR 50 mcg Given 09/22/2018 9:48 AM PLASTERING CONTRACTOR 50 mcg Given 09/22/2018 9:39 AM PLASTERING CONTRACTOR 25 mcg hydrALAZINE (APRESOLINE) injection intravenous, Administer over 1 Minutes, As needed, high blood pressure, Starting on Jo 09/22/18 at 1007, Anesthesia Intra-op, Indications: hypertensionIndications:hypertension Given 09/22/2018 10:07 AM PLASTERING CONTRACTOR 10 mg Lactated Ringer's (LR) infusion 30 mL/hr, intravenous, Continuous, Starting on Jo 09/22/18 at 0830 New Bag 09/22/2018 8:55 AM PLASTERING CONTRACTOR lidocaine (XYLOCAINE) 20 mg/mL (2 %) preservative free injection intravenous, As needed, Starting on Jo 09/22/18 at 0906, Anesthesia Intra-op Given 09/22/2018 9:07 AM PLASTERING CONTRACTOR 20 mg Given 09/22/2018 9:06 AM PLASTERING CONTRACTOR 80 mg midazolam (VERSED) preservative free injection intravenous, Administer over 2 Minutes, As needed, Starting on Jo 09/22/18 at 0859, Anesthesia Intra-op Given 09/22/2018 8:59 AM PLASTERING CONTRACTOR 2 mg ondansetron (ZOFRAN) injection intravenous, Administer over 2 Minutes, As needed, nausea, vomiting, Starting on Jo 09/22/18 at 1019, Anesthesia Intra-op Given 09/22/2018 10:19 AM PLASTERING CONTRACTOR 4 mg propofol (DIPRIVAN) IV intravenous, As needed, Starting on Jo 09/22/18 at 0906, Anesthesia Intra-op Given 09/22/2018 10:02 AM PLASTERING CONTRACTOR 30 mg Given 09/22/2018 9:07 AM PLASTERING CONTRACTOR 40 mg Given 09/22/2018 9:06 AM PLASTERING CONTRACTOR 160 mg documented in this encounter Care Teams Heating Fixture Tender Relationship Specialty [place] [id number] [address] PCP - General 11/12/16 03/11/22 documented as of this encounter
--- OUTSIDE RECORDS SUMMARY | 2024-10-11 02:03 | XMS_ITS | Encounter Summary ---
Author Organization [facility] Address [address] [place] [address] Care Team Providers Care Pulley Mortiser Operator Name Role Phone Santino Funk MD Primary Care Provider + Encounter Details Date Type Department Care Team (Latest Contact Info) Description 09/22/2018 7:32 AM FORENSIC IDENTIFICATION SPECIALIST - 09/22/2018 11:59 PM FORENSIC IDENTIFICATION SPECIALIST Hospital Encounter [facility] Diagnostic Imaging [address] [place] [address] Discharge Disposition: Discharge to home or self care Social History Tobacco Use Types Packs/Day Years Used Date Smoking Tobacco: Former Smokeless Tobacco: Never Alcohol Use Standard Drinks/Week Comments Yes 0 (1 standard drink = 0.6 oz pur e alcohol) Sex and Gender Information Value Date Recorded Sex Assigned at Not on file Legal Sex Male 3:25 PM FORENSIC IDENTIFICATION SPECIALIST Gender Identity Not on file Sexual [...] (Latest Contact Info) Description 10/23/2024 10:00 AM FORENSIC IDENTIFICATION SPECIALIST Hospital Encounter [facility] Operating Room [address] [place] [address] [place] [address] [address] 10/23/2024 10:00 AM FORENSIC IDENTIFICATION SPECIALIST - 10/23/2024 1:00 PM FORENSIC IDENTIFICATION SPECIALIST Surgery [facility] Operating Room [address] [place] [address] [place] [address] [address] ARTHROPLASTY TOTAL KNEE LEFT Scheduled Procedures Name Priority Associated Diagnoses Date/Ti me ARTHROPLASTY TOTAL KNEE left knee osteoarthritis 10/23/2024 10:00 AM FORENSIC IDENTIFICATION SPECIALIST ESOPHAGOGASTRODUODENOSCOPY Dysphagia, unspecified type documented as of this encounter Procedures Procedure Name Priority Date/Time Associated Diagnosis Comments XR KNEE LEFT 1 OR 2 VIEWS IP Routine 09/22/2018 10:07 AM FORENSIC IDENTIFICATION SPECIALIST documented in this encounter Results * XR Knee Left 1 or 2 Views (09/22/2018 10:07 AM FORENSIC IDENTIFICATION SPECIALIST) Anatomical Region Laterality Modality Lower Extremities, Knee Left Computed Radiography 09/22/2018 10:1 7 AM FORENSIC IDENTIFICATION SPECIALIST Impressions 09/22/2018 10:18 AM FORENSIC IDENTIFICATION SPECIALIST Radiographic localization Electronically signed by: Beka Draper M.D. Narrative 09/22/2018 10:18 AM FORENSIC IDENTIFICATION SPECIALIST RESULT: EXAMINATION: XR KNEE LEFT 1 OR [...] on filedocumented in this encounter Care Teams Pulley Mortiser Operator Relationship Specialty [place] [address] [address] PCP - General 11/12/16 03/11/22 documented as of this encounter
--- OUTSIDE RECORDS SUMMARY | 2024-10-11 02:03 | XMS_ITS | Encounter Summary ---
Author Organization [facility] Address [address] [facility] [address] [place] [address] Care Team Providers Care Aerologist Name Role Phone Santino Funk MD Primary Care Provider + Encounter Details Date Type Department Care Team (Late st Contact Info) Description 10/12/2018 Telephone [facility] [address] [address] [place] [address] [address] Social History Tobacco Use Types Packs/Day Years Used Date Smoking Tobacco: Former Smokeless Tobacco: Never Alcohol Use Standard Drinks/Week Comments Yes 0 (1 standard drink = 0.6 oz pur e alcohol) Sex and Gender Information Value Date Recorded Sex Assigned at Not on file Legal Sex Male 3:25 PM HUMAN RESOURCES VICE PRESIDENT Gender Identity Not on file Sexual Orientation Not on file documented as of this encounter Miscellaneous Notes * Telephone Encounter - Natali Bran - 10/12/2018 2:38 PM CST Refilled on Oxycodone 7.5/325 N RESOURCES VICE PRESIDENT documented in this encounter Plan of Treatment Upcoming Encounters Date Type Department Care Team (Latest Contact Info) Description 10/23/2024 10:00 AM HUMAN RESOURCES VICE PRESIDENT Hospital Encounter [facility] Operating Room [address] [place] [address] [place] [address] [address] 10/23/2024 10:00 AM HUMAN RESOURCES VICE PRESIDENT - 10/23/2024 1:00 PM HUMAN RESOURCES VICE PRESIDENT Surgery [facility] Operating Room [address] [place] [address] [place] [address] [address] ARTHROPLASTY TOTAL KNEE LEFT Scheduled Procedures Name Priority Associated Diagnoses Date/Ti me ARTHROPLASTY TOTAL KNEE left knee osteoarthritis 10/23/2024 10:00 AM HUMAN RESOURCES VICE PRESIDENT ESOPHAGOGASTRODUODENOSCOPY Dysphagia, unspecified type documented as of this encounter Visit Diagnoses Not on filedocumented in this encounter Care Teams Aerologist Relationship Specialty [place] [address] [facility] [address], [place] [address] PCP - General 11/12/16 03/11/22 documented as of this encounter
--- OUTSIDE RECORDS SUMMARY | 2024-10-11 02:03 | XMS_ITS | Encounter Summary ---
Author Organization [facility] Address [address] [facility] [address] [address] [place] [address] Care Team Providers Care Editor Managing Director Name Role Phone Santino Funk MD Primary Care Provider + Reason for Visit * Reason Comments Post-op Post-op Encounter Details Date Type Department Care Team (Latest Contact Info) Description 09/27/2018 8:30 AM PROFESSOR OF INDUSTRIAL TECHNOLOGY Office Visit [facility] [address] [facility] [address] [place] [address] [place] [address] [facility] [address] [place] [address] Complex tear of medial meniscus of right knee as current injury, subsequent encounter (Primary Dx); Complex tear of medial meniscus of left knee as current injury, subsequent encounter; Closed osteochondral fracture of patella, right, with delayed healing, subsequent encounter; Closed nondisplaced osteochondral fracture of left patella with delayed healing; Closed fracture of right tibial plateau with delayed healing; Closed fracture of left tibial plateau with delayed healing; Subchondral insufficiency fracture of condyle of left femur with delayed healing, subsequent encounter; Primary osteoarthritis of left knee Social History Tobacco Use Types Packs/Day Years Used Date Smoking Tobacco: Former Smokeless Tobacco: Never Alcohol Use Standard Drinks/Week Comments Yes 0 (1 standard drink = 0.6 oz pur e alcohol) Sex and Gender Information Value Date Recorded Sex Assigned at Not on file Legal Sex Male 3:25 PM PROFESSOR OF INDUSTRIAL TECHNOLOGY Gender Identity Not on file Sexual Orientation Not on file documented as of this encounter Last Filed Vital Signs Vital Sign Reading Time Taken Comments Blood Pressure - - Pulse - - Temperature - - Respiratory Rate - - Oxygen Saturation - - Inhaled Oxygen Concentration - - Weight 100 kg (220 lb 6.4 oz) 09/27/2018 8:38 AM PROFESSOR OF INDUSTRIAL TECHNOLOGY Height 182.9 cm (6') 09/27/2018 8:38 AM PROFESSOR OF INDUSTRIAL TECHNOLOGY Body Mass Index 29.89 09/27/2018 8:38 AM PROFESSOR OF INDUSTRIAL TECHNOLOGY documented in this encounter Progress Notes * Jossie Montalvo PA - 09/27/2018 8:30 AM CST Images from the original note were not included. POST OP VISIT Subjective CHIEF COMPLAINT He had concerns including Post-op of the Left Knee and Post-op of the Right Knee. HISTORY OF PRESENT ILLINESS This is a postop visit for bilateral knee arthroscopies. He had bilateral medial meniscectomies, bilateral subchondroplasty days. He is up with a walker. His main complaint today is dizziness when transitioning from sitting to standing. He also states that he has been urinating a lot more than normal. He denies any chest pain or shortness of breath. His pulse is regular, blood pressure is 152/90in the office today. MEDICATIONS He has a current medication list which includes the following prescription(s): ergocalciferol, meloxicam, omeprazole, oxycodone-acetaminophen, and temazepam. ALLERGIES He has No Known Allergies. PHYSICAL EXAM Exam of the right knee demonstrates all incisions are healing well without evidence of infection. He has trace joint effusion. He can extend the knee fully and flex further to 105??. Exam of the left knee demonstrates 2+ medial soft tissue swelling. 1+ joint effusion. All incisionsare healing well. No evidence of infection. Range of motion is 5?? short of full extension with further flexion 90??. REVIEW OF X-RAYS/STUDIES/LABS (IF ORDERED) Assessment/Plan Abrahan was seen today for post-op and post-op. Diagnoses and all orders for this visit: Complex tear of medial meniscus of right knee as current injury, subsequent encounter - Ambulatory referral order to Physical Therapy -; Future Complex tear of medial meniscus of left knee as current injury, subsequent encounter - Ambulatory referral order to Physical Therapy -; Future Closed osteochondral fracture of patella, right, with delayed healing, subsequent encounter - Ambulatory referral order to Physical Therapy -; Future Closed nondisplaced osteochondral fracture of left patella with delayed healing - Ambulatory referral order to Physical Therapy -; Future Closed fracture of right tibial plateau with delayed healing - Ambulatory referral order to Physical Therapy -; Future Closed fracture of left tibial plateau with delayed healing - Ambulatory referral order to Physical Therapy -; Future Subchondral insufficiency fracture of condyle of left femur with delayed healing, subsequent encounter - Ambulatory referral order to Physical Therapy -; Future Primary osteoarthritis of left knee - Ambulatory referral order to Physical Therapy -; Future Plan Encouraged patient follow-up with his refinery operator vapor recovery unit regarding his dizzy spells. He wonders if this may be due to the Percocet, he does have hydrocodone at home and I told him he could certainly utilize that as he has taken hydrocodone previously without side effects. Arthroscopic photos were reviewed with the patient. Wound care was discussed. He will follow up in 4 weeks. Outpatient therapy is ordered today. LORI Craig ESSOR OF INDUSTRIAL TECHNOLOGY documented in this encounter Plan of Treatment Upcoming Encounters Date Type Department Care Team (Latest Contact Info) Description 10/23/2024 10:00 AM PROFESSOR OF INDUSTRIAL TECHNOLOGY Hospital Encounter [facility] Operating Room [address] [place] [address] [place] [address] [address] 10/23/2024 10:00 AM PROFESSOR OF INDUSTRIAL TECHNOLOGY - 10/23/2024 1:00 PM PROFESSOR OF INDUSTRIAL TECHNOLOGY Surgery [facility] Operating Room [address] [place] [address] [place] [address] [address] ARTHROPLASTY TOTAL KNEE LEFT Scheduled Procedures Name Priority Associated Diagnoses Date/Ti me ARTHROPLASTY TOTAL KNEE left knee osteoarthritis 10/23/2024 10:00 AM PROFESSOR OF INDUSTRIAL TECHNOLOGY ESOPHAGOGASTRODUODENOSCOPY Dysphagia, unspecified type documented as of this encounter Visit Diagnoses Diagnosis Complex tear of medial meniscus of right knee as current injury, subsequent encounter- Primary Complex tear of medial meniscus of left knee as current injury, subsequent encounter Closed osteochondral fracture of patella, right, with delayed healing, subsequent encounter Closed nondisplaced osteochondral fracture of left patella with delayed healing Closed fracture of right tibial plateau with delayed healing Closed fracture of left tibial plateau with delayed healing Subchondral insufficiency fracture of condyle of left femur with delayed healing, subsequent encounter Primary osteoarthritis of left knee documented in this encounter Care Teams Editor Managing Director Relationship Specialty [place] [address] [address] PCP - General 11/12/16 03/11/22 documented as of this encounter
--- OUTSIDE RECORDS SUMMARY | 2024-10-11 02:03 | XMS_ITS | Encounter Summary ---
Author Organization [facility] Address [address] [address] Care Team Providers Care Histology Technician Name Role Phone Santino Funk MD Primary Care Provider + Reason for Referral * Orthopedic (Routine) - Closed Specialty Diagnoses / Procedures Referred By Contac t Referred To Contact Diagnoses Primary osteoarthritis of left knee Complex tear of medial meniscus of left knee as current injury, subsequent encounter Procedures Large Joint Arthrocentesis George Sepulveda MD Phone: tel: fax: Referral ID Status Reason Start Date Expiration Date Visits Re quested Visits Authorized [id number] Closed 10/25/2018 05/05/2020 1 1 LRY SALES REPRESENTATIVE * Diagnostic Imaging (Routine) - Closed Specialty Diagnoses / Procedures Referred By Contac t Referred To Contact Diagnoses Complex tear of medial meniscus of left knee as current injury, subsequent encounter Procedures XR Knee Left 3 Views George Sepulveda MD Phone: tel: fax: [facility] Referral ID Status Reason Start Date Expiration Date Visits Re quested Visits Authorized [id number] Closed 10/25/2018 05/05/2020 1 1 LRY SALES REPRESENTATIVE Reason for Visit * Reason Comments Post-op Post-op Encounter Details Date Type Department Care Team (Latest Contact Info) Description 10/25/2018 8:15 AM JEWELRY SALES REPRESENTATIVE Office Visit [facility] [address] [facility] [address] [place] [phone] [place] [address] [facility] [address] [place] [address] Primary osteoarthritis of left knee (Primary Dx); Complex tear of medial meniscus of left knee as current injury, subsequent encounter Social History Tobacco Use Types Packs/Day Years Used Date Smoking Tobacco: Former Smokeless Tobacco: Never Alcohol Use Standard Drinks/Week Comments Yes 0 (1 standard drink = 0.6 oz pur e alcohol) Sex and Gender Information Value Date Recorded Sex Assigned at Not on file Legal Sex Male 3:25 PM JEWELRY SALES REPRESENTATIVE Gender Identity Not on file Sexual Orientation Not on file documented as of this encounter Last Filed Vital Signs Vital Sign Reading Time Taken Comments Blood Pressure - - Pulse - - Temperature - - Respiratory Rate - - Oxygen Saturation - - Inhaled Oxygen Concentration - - Weight 99.3 kg (219 lb) 10/25/2018 8:54 AM JEWELRY SALES REPRESENTATIVE Height 182.9 cm (6') 10/25/2018 8:54 AM JEWELRY SALES REPRESENTATIVE Body Mass Index 29.7 10/25/2018 8:54 AM JEWELRY SALES REPRESENTATIVE documented in this encounter Progress Notes * George Sepulveda MD - 10/25/2018 8:15 AM CSTAssociated Order(s): LARGE JOINT ARTHROCENTESIS Post-Procedure Diagnose(s): Primary osteoarthritis of left knee; Complex tear of medial meniscus ofleft knee as current injury, subsequent encounter Images from the original note were not included. FOLLOW UP VISIT Subjective CHIEF COMPLAINT He had concerns including Post-op of the Left Knee and Post-op of the Right Knee. HISTORY OF PRESENT ILLNESS Patient returns today for follow-up evaluation of his left and right knees status post subchondroplasty femur tibia and patella. Patient reports his right knee is doing well but his left knee has hada flare-up of pain and swelling. Pain Assessment Pain Assessment: 0-10 Pain Score: 9 Pain Location: Knee Pain Orientation: Left Pain Descriptors: Aching, Throbbing, Sharp, Sore Pain Frequency: Constant/continuous Clinical Progression: Gradually worsening Aggravating Factors: Standing Result of Injury: No Work-Related Injury: No Pain Interventions: Medication (See MAR), Physical Therapy Multiple Pain Sites: Two Pain 2 Pain Score 2: 3 Pain Location 2: Knee Pain Orientation 2: Right Pain Descriptors 2: Throbbing, Sharp Pain Frequency 2: Intermittent Clinical Progression 2: Gradually improving Pain Intervention(s) 2: Medication (See MAR), Physical Therapy MEDICATIONS He has a current medication list which includes the following prescription(s): ergocalciferol, meloxicam, omeprazole, oxycodone-acetaminophen, and temazepam. REVIEW OF SYSTEMS Review of Systems Constitutional: Negative for chills and fever. Respiratory: Negative for shortness of breath. Cardiovascular: Negative for chest pain. Gastrointestinal: Negative for abdominal pain. Skin: Negative for rash. Psychiatric/Behavioral: Negative for dysphoric mood. Objective PHYSICAL EXAM Ht 182.9 cm (6') Wt 99.3 kg (219 lb) BMI 29.70 kg/m?? Right knee Inspection Erythema: absent Cellulitis: absent Swelling: absent Surgical scar/wound: present. Skin temperature: normal Alignment: neutral Gait: normal [...] Swelling: absent Effusion: 1+ Surgical scar/wound: present. Skin temperature: normal Alignment: neutral Gait: antalgic [...] negative Patellar apprehension: negative REVIEW OF X-RAYS/STUDIES/LABS XR Knee Left 3 Views Radiographs of the left knee reviewed and interpreted these demonstrate stable osteoarthritis with [id number] grade 4 patellofemoral joint space narrowing grade 3 medial compartment narrowing and grade 2 lateral compartment narrowing. Assessment/Plan Abrahan was seen today for post-op and post-op. Diagnoses and all orders for this visit: Primary osteoarthritis of left knee Complex tear of medial meniscus of left knee as current injury, subsequent encounter - XR Knee Left 3 Views; Future Large Joint (Hip, Knee, Shoulder) Injection Date/Time: 10/25/2018 9:27 AM Performed by: GEORGE SEPULVEDA Authorized by: GEORGE SEPULVEDA Large Joint Injection/Aspiration: Verbal consent obtained: Yes Supporting Documentation: Indications: Pain and joint swelling Procedure Details: Location: Knee Site: L knee Needle Size: 22 G Approach: Anterolateral Medications: 4 mL lidocaine 10 mg/mL (1 %); 80 mg methylPREDNISolone acetate 40 mg/mL PLAN For the right knee the patient will continue with his rehabilitation at home after completing his therapy. For the left knee we discussed corticosteroid injection and continuing physical therapy. He accepted. He will follow up with me in 1 month for further evaluation George Sepulveda MD LRY SALES REPRESENTATIVE documented in this encounter Plan of Treatment Upcoming Encounters Date Type Department Care Team (Latest Contact Info) Description 10/23/2024 10:00 AM JEWELRY SALES REPRESENTATIVE Hospital Encounter [facility] Operating Room [address] [place] [address] [place] [address] [address] 10/23/2024 10:00 AM JEWELRY SALES REPRESENTATIVE - 10/23/2024 1:00 PM JEWELRY SALES REPRESENTATIVE Surgery [facility] Operating Room [address] [place] [address] [place] [address] [id number] ARTHROPLASTY TOTAL KNEE LEFT Scheduled Procedures Name Priority Associated Diagnoses Date/Ti me ARTHROPLASTY TOTAL KNEE left knee osteoarthritis 10/23/2024 10:00 AM JEWELRY SALES REPRESENTATIVE ESOPHAGOGASTRODUODENOSCOPY Dysphagia, unspecified type documented as of this encounter Procedures Procedure Name Priority Date/Time Associated Diagnosis Comments AR ARTHROCENTESIS ASPIR&/INJ MAJOR JT/BURSA W/O US Routine 10/25/2018 8:15 AM JEWELRY SALES REPRESENTATIVE Primary osteoarthritis of left knee Complex tear of medial meniscus of left knee as current injury, subsequent encounter documented in this encounter Results * XR Knee Left 3 Views (10/25/2018 9:11 AM JEWELRY SALES REPRESENTATIVE) Anatomical Region Laterality Modality Lower Extremities, Knee Left [facility] Narrative 10/25/2018 9:18 AM JEWELRY SALES REPRESENTATIVE Radiographs of the left knee reviewed and interpreted these demonstrate stable osteoarthritis with [id number] grade 4 patellofemoral joint space narrowing grade 3 medial compartment narrowing and grade 2 lateral compartment narrowing. us George Sepulveda MD IMG XR PROCEDURES Final R esult * AR ARTHROCENTESIS ASPIR&/INJ MAJOR JT/BURSA W/O US (10/25/2018 8:15 AM JEWELRY SALES REPRESENTATIVE) Narrative George Sepulveda MD - 10/25/2018 8:15 AM JEWELRY SALES REPRESENTATIVE George Sepulveda MD ? 10/25/2018 ??9:40 AM Large Joint (Hip, Knee, Shoulder) Injection Date/Time: 10/25/2018 9:27 AM Performed by: GEORGE SEPULVEDA Authorized by: GEORGE SEPULVEDA Large Joint Injection/Aspiration: ??Verbal consent obtained: Yes ?? Supporting Documentation: ??Indications: ??Pain and joint swelling Procedure Details: ??Location: ??Knee ??Site: ??L knee ??Needle Size: ??22 G ??Approach: ??Anterolateral ??Medications: ??4 mL lidocaine 10 mg/mL (1 %); 80 mg methylPREDNISolone acetate 40 mg/mL us George Sepulveda MD IN CLINIC/BEDSIDE ORDERAB LES Final Result documented in this encounter Visit Diagnoses Diagnosis Primary osteoarthritis of left knee- Primary Complex tear of medial meniscus of left knee as current injury, subsequent encounter Complex tear of medial meniscus of left knee as current injury, subsequent encounter documented in this encounter Administered Medications Inactive Administered Medications - up to 3 most recent administrations Medication Order MAR Action Action Date Dose Rate Site lidocaine (XYLOCAINE) 10 mg/mL (1 %) injection 4 mL 4 mL, One-Time Injection, Starting on Wed10/25/18 at 0927, For 1 dose, Indications: Administration of Local AnesthesiaIndications:Administratio n of Local Anesthesia Given 10/25/2018 9:27 AM JEWELRY SALES REPRESENTATIVE 4 mL methylPREDNISolone acetate (DEPO-medrol) injection 80 mg 80 mg, intra-articular, One-Time Injection, Starting on Wed10/25/18 at 0927, For 1 doseIndications:Primary osteoarthritis of left knee,Complex tear of medial meniscus of left knee as current injury, subsequent encounter Given 10/25/2018 9:27 AM JEWELRY SALES REPRESENTATIVE 80 mg documented in this encounter Care Teams Histology Technician Relationship Specialty [place] [address] [address] PCP - General 11/12/16 03/11/22 documented as of this encounter
--- OUTSIDE RECORDS SUMMARY | 2024-10-11 02:03 | XMS_ITS | Encounter Summary ---
Author Organization [facility] Address [address] [facility] [address] [place] [address] Care Team Providers Care Tool Crib Manager Name Role Phone Santino Funk MD Primary Care Provider + Reason for Referral * Diagnostic Imaging (Routine) - Closed Specialty Diagnoses / Procedures Referred By Contac t Referred To Contact Radiology Diagnoses Acute medial meniscus tear of left knee, subsequent encounter Procedures MRI Knee Right WO Contrast George Sepulveda MD Phone: tel: fax: [facility] Referral ID Status Reason Start Date Expiration Date Visits Re quested Visits Authorized [id number] Closed 08/22/2018 03/02/2020 1 1 BER TENDER Encounter Details Date Type Department Care Team (Late st Contact Info) Description 08/22/2018 Orders Only [facility] [id number] [phone] George Sepulveda MD [address] [place] [id number] Acute medial meniscus tear of left knee, subsequent encounter (Primary Dx) Social History Tobacco Use Types Packs/Day Years Used Date Smoking Tobacco: Former Smokeless Tobacco: Never Alcohol Use Standard Drinks/Week Comments Yes 0 (1 standard drink = 0.6 oz pur e alcohol) Sex and Gender Information Value Date Recorded Sex Assigned at Not on file Legal Sex Male 3:25 PM ENROBER TENDER Gender Identity Not on file Sexual Orientation Not on file documented as of this encounter Plan of Treatment Upcoming Encounters Date Type Department Care Team (Latest Contact Info) Description 10/23/2024 10:00 AM ENROBER TENDER Hospital Encounter [facility] Operating Room [id number] [place] [address] [place] [address] [address] 10/23/2024 10:00 AM ENROBER TENDER - 10/23/2024 1:00 PM ENROBER TENDER Surgery [facility] Operating Room [id number] [place] [address] [place] [address] [address] ARTHROPLASTY TOTAL KNEE LEFT Scheduled Procedures Name Priority Associated Diagnoses Date/Ti me ARTHROPLASTY TOTAL KNEE left knee osteoarthritis 10/23/2024 10:00 AM ENROBER TENDER ESOPHAGOGASTRODUODENOSCOPY Dysphagia, unspecified type documented as of this encounter Results * MRI Knee Right WO Contrast (08/24/2018 7:31 PM ENROBER TENDER) Anatomical Region Laterality Modality Lower Extremities Right Magnetic Reson ance 08/25/2018 4:04 PM ENROBER TENDER Impressions 08/25/2018 4:11 PM ENROBER TENDER 1. ??Medial meniscus tear. 2. 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 Electronically signed by: Martir Yang M.D. Narrative 08/25/2018 4:11 PM ENROBER TENDER RESULT: Examination: MRI right knee without contrast [...] compartment. Electronically signed by: Martir Yang M.D. George Sepulveda MD IMG MRI PROCEDURES Final Result documented in this encounter Visit Diagnoses Diagnosis Acute medial meniscus tear of left knee, subsequent encounter- Primary documented in this encounter Care Teams Tool Crib Manager Relationship Specialty [place] [address] [address] PCP - General 11/12/16 03/11/22 documented as of this encounter
--- OUTSIDE RECORDS SUMMARY | 2024-10-11 02:03 | XMS_ITS | Encounter Summary ---
Author Organization [facility] Healthcare Address [address] [place] [address] Care Team Providers Care Crate Maker Name Role Phone Santino Funk MD Primary Care Provider + Encounter Details Date Type Department Care Team (Latest Contact Info) Description 09/22/2018 7:32 AM LINE WORKER - 09/22/2018 11:59 PM LINE WORKER Hospital Encounter [facility] Diagnostic Imaging [address] [place] [address] Discharge Disposition: Discharge to home or self care Social History Tobacco Use Types Packs/Day Years Used Date Smoking Tobacco: Former Smokeless Tobacco: Never Alcohol Use Standard Drinks/Week Comments Yes 0 (1 standard drink = 0.6 oz pur e alcohol) Sex and Gender Information Value Date Recorded Sex Assigned at Not on file Legal Sex Male 3:25 PM LINE WORKER Gender Identity Not on file Sexual [...] (Latest Contact Info) Description 10/23/2024 10:00 AM LINE WORKER Hospital Encounter [facility] Operating Room [address] [place] [address] [place] [address] [address] 10/23/2024 10:00 AM LINE WORKER - 10/23/2024 1:00 PM LINE WORKER Surgery [facility] Operating Room [address] [place] [address] [place] [address] [address] ARTHROPLASTY TOTAL KNEE LEFT Scheduled Procedures Name Priority Associated Diagnoses Date/Ti me ARTHROPLASTY TOTAL KNEE left knee osteoarthritis 10/23/2024 10:00 AM LINE WORKER ESOPHAGOGASTRODUODENOSCOPY Dysphagia, unspecified type documented as of this encounter Procedures Procedure Name Priority Date/Time Associated Diagnosis Comments XR KNEE RIGHT 1 OR 2 VIEWS IP Routine 09/22/2018 10:09 AM LINE WORKER documented in this encounter Results * XR Knee Right 1 or 2 Views (09/22/2018 10:09 AM LINE WORKER) Anatomical Region Laterality Modality Lower Extremities, Knee Right Computed Radiography 09/22/2018 10:1 6 AM LINE WORKER Impressions 09/22/2018 10:17 AM LINE WORKER Surgical localization. Electronically signed by: Estelita Evans 09/22/2018 10:17 AM LINE WORKER RESULT: EXAMINATION: XR KNEE RIGHT 1 OR [...] on filedocumented in this encounter Care Teams Crate Maker Relationship Specialty [place] [address] [address] PCP - General 11/12/16 03/11/22 documented as of this encounter
--- OUTSIDE RECORDS SUMMARY | 2024-10-11 02:04 | XMS_ITS | Encounter Summary ---
Author Organization [facility] Address [address] [facility] [address] [place] [address] Care Team Providers Care Engineering Test Mechanic Name Role Phone Santino Funk MD Primary Care Provider + Reason for Visit * Diagnostic Imaging (Routine) - Closed Specialty Diagnoses / Procedures Referred By Dillan t Referred To Contact Diagnoses Chronic pain of left knee Procedures XR Knee Left 4+ View George Sepulveda MD Phone: tel: fax: Referral ID Status Reason Start Date Expiration Date Visits Re quested Visits Authorized [id number] Closed 08/08/2018 02/17/2020 1 1 Encounter Details Date Type Department Care Team (Latest Contact Info) Description 08/08/2018 9:30 AM CDT - 08/08/2018 11:59 PM CDT Hospital Encounter [facility] [address] [phone] Discharge Disposition: Discharge to home or self care Social History Tobacco Use Types Packs/Day Years Used Date Smoking Tobacco: Former Alcohol Use Standard Drinks/Week Comments Yes 0 (1 standard drink = 0.6 oz pur e alcohol) Sex and Gender Information Value Date Recorded Sex Assigned at Not on file Legal Sex Male 3:25 PM BILLBOARD ERECTOR HELPER Gender Identity Not on file Sexual Orientation Not on file documented as of this encounter Medications at Time of Discharge doxycycline (VIBRAMYCIN) 100 mg capsule Take 100 mg by mouth 2 (two) times a day. 8 HYDROcodone-acet aminophen (NORCO) 7.5-325 mg per tabletIndication s:Pain 0 06/17/2018 8 loratadine 10 mg capsule Take by mouth. 8 LORazepam (ATIVAN) 1 mg tablet Take 1 mg by mouth every 6 (six) hours as needed for anxiety. 8 meloxicam (MOBIC) 15 mg tablet Take 1 tablet by mouth daily. 06/17/2018 0 metoclopramide (REGLAN) 10 mg tablet Take 10 mg by mouth 4 (four) times a day. 8 omeprazole (PriLOSEC) 20 mg capsule take 1 capsule by oral route every day before a meal 0 0 10/21/2016 4 predniSONE (DELTASONE) 1 mg tablet Take by mouth. 8 pyridostigmine (MESTINON) 60 mg tablet take 1/2 tablet by oral route 3 times every day 90 5 11/12/2016 8 sildenafil (VIAGRA) 100 mg tablet take 1/2 Tablet by oral route every week as needed approximately 1 hour before sexual activity 0 0 10/21/2016 8 temazepam (RESTORIL) 15 mg capsule take 2 Capsule by oral route every day at bedtime as needed 0 0 10/21/2016 8 temazepam (RESTORIL) 15 mg capsuleIndicatio ns:Insomnia Take 15 mg by mouth nightly as needed for sleep 01/21/2018 0 documented as of this encounter Discharge Disposition Disposition Code Departure Means Destination Discharge to home or self care documented in this encounter Plan of Treatment Upcoming Encounters Date Type Department Care Team (Latest Contact Info) Description 10/23/2024 10:00 AM BILLBOARD ERECTOR HELPER Hospital Encounter [facility] Operating Room [address] [place] [address] [place] [address] [facility] [address] [place] [address] 10/23/2024 10:00 AM BILLBOARD ERECTOR HELPER - 10/23/2024 1:00 PM BILLBOARD ERECTOR HELPER Surgery [facility] Operating Room [address] [place] [address] [place] [address] [facility] [address] [place] [address] ARTHROPLASTY TOTAL KNEE LEFT Scheduled Procedures Name Priority Associated Diagnoses Date/Ti me ARTHROPLASTY TOTAL KNEE left knee osteoarthritis 10/23/2024 10:00 AM BILLBOARD ERECTOR HELPER ESOPHAGOGASTRODUODENOSCOPY Dysphagia, unspecified type documented as of this encounter Procedures Procedure Name Priority Date/Time Associated Diagnosis Comments XR KNEE LEFT 4 OR MORE VIEWS Schedule Routine, Read Routine (OP Routine) 08/08/2018 9:31 AM CDT Primary osteoarthritis of left knee documented in this encounter Results * XR Knee Left 4+ View (08/08/2018 9:31 AM CDT) Anatomical Region Laterality Modality Lower Extremities, Knee Left Radiogra phic Imaging Narrative 08/08/2018 9:51 AM CDT Radiographs of the left knee reviewed and interpreted these demonstrate moderate medial and patellofemoral joint space narrowing consistent with moderate osteoarthritis us George Sepulveda MD IMG XR PROCEDURES Final R esult documented in this encounter Visit Diagnoses Not on filedocumented in this encounter Care Teams Engineering Test Mechanic Relationship Specialty [place] [address] [facility] [address] [place] [address] PCP - General 11/12/16 03/11/22 documented as of this encounter
--- OUTSIDE RECORDS SUMMARY | 2024-10-11 02:04 | XMS_ITS | Encounter Summary ---
Author Organization [facility] Healthcare Address [address] [place] [address] Care Team Providers Care Machine Striper Name Role Phone Unavailable Primary Care Provider Unavailabl e Encounter Details Date Type Department Care Team (Late st Contact Info) Description 01/09/2010 8:16 AM CDT - 01/09/2010 11:59 PM CDT Hospital Encounter [facility] [place], [place] [address] [facility] [place], [place] [id number] Abdominal pain Social History Tobacco Use Types Packs/Day Years Used Date Smoking Tobacco: Never Assessed Sex and Gender Information Value Date Recorded Sex Assigned at Not on file Legal Sex Male 3:25 PM FUNCTIONAL DIRECTOR Gender Identity Not on file Sexual Orientation Not on file documented as of this encounter Plan of Treatment Upcoming Encounters Date Type Department Care Team (Latest Contact Info) Description 10/23/2024 10:00 AM FUNCTIONAL DIRECTOR Hospital Encounter [facility] Operating Room [address] [place] [address] [place] [address] [id number] 10/23/2024 10:00 AM FUNCTIONAL DIRECTOR - 10/23/2024 1:00 PM FUNCTIONAL DIRECTOR Surgery [facility] Operating Room [address] [place] [address] [place] [address] [facility] [address] [place] [address] ARTHROPLASTY TOTAL KNEE LEFT Scheduled Procedures Name Priority Associated Diagnoses Date/Ti me ARTHROPLASTY TOTAL KNEE left knee osteoarthritis 10/23/2024 10:00 AM FUNCTIONAL DIRECTOR ESOPHAGOGASTRODUODENOSCOPY Dysphagia, unspecified type documented as of this encounter Visit Diagnoses Diagnosis Abdominal pain Abdominal pain, unspecified site documented in this encounter
--- OUTSIDE RECORDS SUMMARY | 2024-10-11 02:04 | XMS_ITS | Encounter Summary ---
Author Organization [facility] Healthcare Address [address] [place] [address] Care Team Providers Care Manager Mall Name Role Phone Unavailable Primary Care Provider Unavailabl e Encounter Details Date Type Department Care Team (Late st Contact Info) Description 05/18/2012 3:10 PM CDT - 05/18/2012 11:59 PM CDT Hospital [place] [address] [facility] [address] [place] [address] Pain in soft tissues of limb; Swelling of limb; Tear of medial cartilage or meniscus of knee, current; Accident; Unspecified place of occurrence; Effusion of lower leg joint; Other enthesopathy of knee; Exostosis Social History Tobacco Use Types Packs/Day Years Used Date Smoking Tobacco: Never Assessed Sex and Gender Information Value Date Recorded Sex Assigned at Not on file Legal Sex Male 3:25 PM COLD MOLDING PRESS OPERATOR Gender Identity Not on file Sexual Orientation Not on file documented as of this encounter Plan of Treatment Upcoming Encounters Date Type Department Care Team (Latest Contact Info) Description 10/23/2024 10:00 AM COLD MOLDING PRESS OPERATOR Hospital Encounter [facility] Operating Room [address] [place] [address] [place] [address] [facility] [address] [place] [address] 10/23/2024 10:00 AM COLD MOLDING PRESS OPERATOR - 10/23/2024 1:00 PM COLD MOLDING PRESS OPERATOR Surgery [facility] Operating Room [address] [place] [address] [place] [address] [facility] [address] [place] [address] ARTHROPLASTY TOTAL KNEE LEFT Scheduled Procedures Name Priority Associated Diagnoses Date/Ti me ARTHROPLASTY TOTAL KNEE left knee osteoarthritis 10/23/2024 10:00 AM COLD MOLDING PRESS OPERATOR ESOPHAGOGASTRODUODENOSCOPY Dysphagia, unspecified type documented as of this encounter Visit Diagnoses Diagnosis Pain in soft tissues of limb Swelling of limb Tear of medial cartilage or meniscus of knee, current Accident Unspecified accident Unspecified place of occurrence Effusion of lower leg joint Other enthesopathy of knee Exostosis Exostosis of unspecified site documented in this encounter
--- OUTSIDE RECORDS SUMMARY | 2024-10-11 02:04 | XMS_ITS | Encounter Summary ---
Author Organization [facility] Healthcare Address [address] [place] [address] Care Team Providers Care Electrical Controls Engineer Name Role Phone Unavailable Primary Care Provider Unavailabl e Encounter Details Date Type Department Care Team (Late st Contact Info) Description 03/14/2010 4:29 PM CDT - 03/14/2010 11:59 PM CDT Hospital Encounter [facility] Social History Tobacco Use Types Packs/Day Years Used Date Smoking Tobacco: Never Assessed Sex and Gender Information Value Date Recorded Sex Assigned at Not on file Legal Sex Male 3:25 PM TITLE OFFICER Gender Identity Not on file Sexual Orientation Not on file documented as of this encounter Plan of Treatment Upcoming Encounters Date Type Department Care Team (Latest Contact Info) Description 10/23/2024 10:00 AM TITLE OFFICER Hospital Encounter [facility] Operating Room [address] [place] [address] [place] [address] [address] 10/23/2024 10:00 AM TITLE OFFICER - 10/23/2024 1:00 PM [facility] Surgery [facility] Operating Room [address] [place] [address] [place] [address] [address] ARTHROPLASTY TOTAL KNEE LEFT Scheduled Procedures Name Priority Associated Diagnoses Date/Ti me ARTHROPLASTY TOTAL KNEE left knee osteoarthritis 10/23/2024 10:00 AM TITLE OFFICER ESOPHAGOGASTRODUODENOSCOPY Dysphagia, unspecified type documented as of this encounter Visit Diagnoses Not on filedocumented in this encounter
--- OUTSIDE RECORDS SUMMARY | 2024-10-11 02:04 | XMS_ITS | Encounter Summary ---
Author Organization [facility] Healthcare Address [address] [place] [address] Care Team Providers Care Sales Trainer Name Role Phone Santino Funk MD Primary Care Provider + Encounter Details Date Type Department Care Team (Late st Contact Info) Description 10/21/2016 10:11 AM CONCRETE CURER - 10/21/2016 11:59 PM [facility] [place] [address] [facility] [address] [place], [place] [id number] Essential tremor; Diplopia Social History Tobacco Use Types Packs/Day Years Used Date Smoking Tobacco: Former Alcohol Use Standard Drinks/Week Comments Yes 0 (1 standard drink = 0.6 oz pur e alcohol) Sex and Gender Information Value Date Recorded Sex Assigned at Not on file Legal Sex Male 3:25 PM CONCRETE CURER Gender Identity Not on file Sexual Orientation Not on file documented as of this encounter Medications at Time of Discharge omeprazole (PriLOSEC) 20 mg capsule take 1 capsule by oral route every day before a meal 0 0 10/21/2016 4 sildenafil (VIAGRA) 100 mg tablet take 1/2 Tablet by oral route every week as needed approximately 1 hour before sexual activity 0 0 10/21/2016 8 temazepam (RESTORIL) 15 mg capsule take 2 Capsule by oral route every day at bedtime as needed 0 0 10/21/2016 8 documented as of this encounter Plan of Treatment Upcoming Encounters Date Type Department Care Team (Latest Contact Info) Description 10/23/2024 10:00 AM CONCRETE CURER Hospital Encounter [facility] Operating Room [address] [place] [address] [place] [address] [address] 10/23/2024 10:00 AM CONCRETE CURER - 10/23/2024 1:00 PM CONCRETE CURER Surgery [facility] Operating Room [address] [place] [address] [place] [address] [id number] ARTHROPLASTY TOTAL KNEE LEFT Scheduled Procedures Name Priority Associated Diagnoses Date/Ti me ARTHROPLASTY TOTAL KNEE left knee osteoarthritis 10/23/2024 10:00 AM CONCRETE CURER ESOPHAGOGASTRODUODENOSCOPY Dysphagia, unspecified type documented as of this encounter Procedures Procedure Name Priority Date/Time Associated Diagnosis Comments SERUM ANTI-ACETYLCHOLINE (ACH) RECEPTOR AB Routine 10/21/2016 10:15 AM CONCRETE CURER DISCHARGE LABORATORY CUMULATIVE REPORT 10/21/2016 documented in this encounter Results * Serum anti-acetylcholine (ACH) receptor ab (10/21/2016 10:15 AM CONCRETE CURER) Anti-acetylcholine receptor, binding 0.00 <=0.02 nmol/L CDR HISTORICAL RESULTS Comment: ADDITIONAL INFORMATION This test was developed and its performance characteristics determined by [facility] in a manner consistent with CLIA requirements. This test has not been cleared or approved by the U.S. Food and Drug Administration. Test Performed by: [address] [address] [place]: Byron Nance II, M.D., Ph.D. Serum 10/21/2016 10:1 5 AM CONCRETE CURER Nayan Mahajan II, MD LAB BLOOD ORDERABLES Final R esult CDR HISTORICAL RESULTS * DISCHARGE LABORATORY CUMULATIVE REPORT (10/21/2016) Narrative 10/21/2016 Ordered by an unspecified provider. Historical Provider MD LAB BLOOD ORDERABLES Krystina l Result documented in this encounter Visit Diagnoses Diagnosis Essential tremor Diplopia documented in this encounter Care Teams Sales Trainer Relationship Specialty [place] [address] [address] PCP - General 10/21/16 11/11/16 documented as of this encounter
--- OUTSIDE RECORDS SUMMARY | 2024-10-11 02:04 | XMS_ITS | Encounter Summary ---
Author Organization [facility] Healthcare Address [address] [place] [address] Care Team Providers Care Case Repairer Name Role Phone Santino Funk MD Primary Care Provider + Encounter Details Date Type Department Care Team (Late st Contact Info) Description 02/01/2018 8:30 PM CDT Lab [address] [address] Social History Tobacco Use Types Packs/Day Years Used Date Smoking Tobacco: Former Alcohol Use Standard Drinks/Week Comments Yes 0 (1 standard drink = 0.6 oz pur e alcohol) Sex and Gender Information Value Date Recorded Sex Assigned at Not on file Legal Sex Male 3:25 PM LOTTERY SALES CLERK Gender Identity Not on file Sexual Orientation Not on file documented as of this encounter Plan of Treatment Upcoming Encounters Date Type Department Care Team (Latest Contact Info) Description 10/23/2024 10:00 AM LOTTERY SALES CLERK Hospital Encounter [facility] Operating Room [address] [place] [address] [place] [address] [phone] 10/23/2024 10:00 AM LOTTERY SALES CLERK - 10/23/2024 1:00 PM LOTTERY SALES CLERK Surgery [facility] Operating Room [address] [place] [address] [place] [address] [place] [address] ARTHROPLASTY TOTAL KNEE LEFT Scheduled Procedures Name Priority Associated Diagnoses Date/Ti me ARTHROPLASTY TOTAL KNEE left knee osteoarthritis 10/23/2024 10:00 AM LOTTERY SALES CLERK ESOPHAGOGASTRODUODENOSCOPY Dysphagia, unspecified type documented as of this encounter Visit Diagnoses Not on filedocumented in this encounter Care Teams Case Repairer Relationship Specialty [place] [address] [address] [facility] [address] [place] [address] PCP - General 11/12/16 03/11/22 documented as of this encounter
--- OUTSIDE RECORDS SUMMARY | 2024-10-11 02:04 | XMS_ITS | Encounter Summary ---
Author Organization [facility] Healthcare Address [address] [place] [address] Care Team Providers Care Fishing Tool Supervisor Name Role Phone Feliberto Funk MD Primary Care Provider + Encounter Details Date Type Department Care Team (Late st Contact Info) Description 09/23/2016 11:34 AM STITCHER SPECIAL MACHINE - 09/23/2016 11:59 PM [facility] Hospital Encounter [place] [address] [facility] [address] [place] [address] Low vision, both eyes; Abnormality of gait and mobility Social History Tobacco Use Types Packs/Day Years Used Date Smoking Tobacco: Former Alcohol Use Standard Drinks/Week Comments Yes 0 (1 standard drink = 0.6 oz pur e alcohol) Sex and Gender Information Value Date Recorded Sex Assigned at Not on file Legal Sex Male 3:25 PM STITCHER SPECIAL MACHINE Gender Identity Not on file Sexual Orientation Not on file documented as of this encounter Plan of Treatment Upcoming Encounters Date Type Department Care Team (Latest Contact Info) Description 10/23/2024 10:00 AM STITCHER SPECIAL MACHINE Hospital Encounter [facility] Operating Room [address] [place], [place] [phone] [place] [address] [facility] [address] [place] [address] 10/23/2024 10:00 AM STITCHER SPECIAL MACHINE - 10/23/2024 1:00 PM STITCHER SPECIAL MACHINE Surgery [facility] Operating Room [address] [place] [address] [place] [address] [facility] [address] [place] [address] ARTHROPLASTY TOTAL KNEE LEFT Scheduled Procedures Name Priority Associated Diagnoses Date/Ti me ARTHROPLASTY TOTAL KNEE left knee osteoarthritis 10/23/2024 10:00 AM STITCHER SPECIAL MACHINE ESOPHAGOGASTRODUODENOSCOPY Dysphagia, unspecified type documented as of this encounter Procedures Procedure Name Priority Date/Time Associated Diagnosis Comments MRI BRAIN W WO CONTRAST Routine 09/23/2016 1:28 PM STITCHER SPECIAL MACHINE SERUM ESTIMATED GLOMERULAR FILTRATION RATE Routine 09/23/2016 11:46 AM STITCHER SPECIAL MACHINE BLOOD CREATININE Routine 09/23/2016 11:4 6 AM STITCHER SPECIAL MACHINE DISCHARGE LABORATORY CUMULATIVE REPORT 09/23/2016 documented in this encounter Results * MRI Brain W WO Contrast (09/23/2016 1:28 PM STITCHER SPECIAL MACHINE) Anatomical Region Laterality Modality Head and Neck N/A Magnetic Resonan ce 09/23/2016 1:28 PM STITCHER SPECIAL MACHINE Narrative 09/24/2016 10:00 PM STITCHER SPECIAL MACHINE DATE OF EXAM: ??Sep 23 2016 ??1:28PM Acc#: ??[id number] ??EMR [id number] - MR IACs incl Brain W/WO ?? DIAGNOSIS: ??UNSPECIFIED ABNORMALITIES OF GAIT AND [place] CLINICAL HISTORY: ?? VISION LOSS/GAIT ABN RESULT: \ MRI BRAIN ATTENTION IAC WITH/WITHOUT CONTRAST HISTORY Vision loss, abnormal gait, vertigo. Double vision off and on. MRI brain was obtained attention internal auditory canal using multiplanar, multiecho and postcontrast images with 20 mL of Dotarem. Comparison made to MRI of the brain of 12/08/10. Mild ventricular and sulcal enlargement IS seen but age appropriate. Mild degree of small punctate and patchy FLAIR T2W hyperintensities in the periventricular region, centrum semiovale and a few in the vora radiata. None are seen in the posterior fossa or corpus callosum or juxtacortical region nonspecific and probably microvascular disease with only mild interval progression. There is no midline shift, mass effect or extraaxial collection. No acute infarct nor hemorrhage is seen. ??Flow void in the basilar, cavernous and internal carotid arteries and superior sagittal sinus is seen. No asymmetry of the internal auditory canal (IAC), inner ear structures or cerebellopontine angle is seen on the coronal high resolution and T2 weighted sequence. Similarly, there is no abnormal enhancement in the costophrenic angle or IAC. No intracranial enhancement is seen. The orbit is not remarkable as visualized as is the sella. The cerebellar tonsils are normal in position. Mild frontal, ethmoid and axillary sinusitis is seen with small right maxillary sinus retention cyst or polyp. The mastoid and petrous bone air cells are clear. IMPRESSION: ?\ 1. ??ESSENTIALY UNREMARKABLE EXAM WITH MINIMAL MICROVASCULAR DISEASE. 2. ??NO ABNORMALITY SEEN IN THE CEREBELLOPONTINE ANGLE OR IAC. ? GEOTHERMAL POWERPLANT MECHANIC: ??DM2 TRANSCRIBE DATE/TIME: ??Sep 23 2016 ??8:44P RADIOLOGIST: ??TREMAINE LACY M.D. ??READ ON: ??Sep 23 2016 ??3:27P ORDERING DR: FELIBERTO NATARAJAN M.D. ? THIS DOCUMENT HAS BEEN ELECTRONICALLY SIGNED BY: ??TREMAINE LACY M.D. ??ON: ??Sep 24 2016 10:00P Attending: ??ROSA ISELA, ??FELIBERTO Requesting: ??ROSA ISELA, ??FELIBERTO Requesting Fax: ??[phone] Attending Fax: ??[phone] Attending ID: ??[id number] Requesting ID: ??[id number] Report To 1 ID: ?? Report To 1 Name: ??, ?? Report To 1 FAX: ??-- Report To 2 ID: ?? Report To 2 Name: ??, ?? Report To 2 FAX: ??-- NextGen Order #: ?? Procedure Note Provider, MD Garett - 02/16/2017 DATE OF EXAM: Sep 23 2016 1:28PM Acc#: [id number] EMR 0211 - MR IACs incl Brain W/WO DIAGNOSIS: UNSPECIFIED ABNORMALITIES OF GAIT AND [place] CLINICAL HISTORY: VISION LOSS/GAIT ABN RESULT: \ MRI BRAIN ATTENTION IAC WITH/WITHOUT CONTRAST HISTORY Vision loss, abnormal gait, vertigo. Double vision off and on. MRI brain was obtained attention internal auditory canal using multiplanar, multiecho and postcontrast images with 20 mL of Dotarem. Comparison made to MRI of the brain of 12/08/10. Mild ventricular and sulcal enlargement IS seen but age appropriate. Mild degree of small punctate and patchy FLAIR T2W hyperintensities in the periventricular region, centrum semiovale and a few in the vora radiata. None are seen in the posterior fossa or corpus callosum or juxtacortical region nonspecific and probably microvascular disease with only mild interval progression. There is no midline shift, mass effect or extraaxial collection. No acute infarct nor hemorrhage is seen. Flow void in the basilar, cavernous and internal carotid arteries and superior sagittal sinus is seen. No asymmetry of the internal auditory canal (IAC), inner ear structures or cerebellopontine angle is seen on the coronal high resolution and T2 weighted sequence. Similarly, there is no abnormal enhancement in the costophrenic angle or IAC. No intracranial enhancement is seen. The orbit is not remarkable as visualized as is the sella. The cerebellar tonsils are normal in position. Mild frontal, ethmoid and axillary sinusitis is seen with small right maxillary sinus retention cyst or polyp. The mastoid and petrous bone air cells are clear. IMPRESSION: \ 1. ESSENTIALY UNREMARKABLE EXAM WITH MINIMAL MICROVASCULAR DISEASE. 2. NO ABNORMALITY SEEN IN THE CEREBELLOPONTINE ANGLE OR IAC. GEOTHERMAL POWERPLANT MECHANIC: MINERVA TRANSCRIBE DATE/TIME: Sep 23 2016 8:44P RADIOLOGIST: TREMAINE LACY M.D. READ ON: Sep 23 2016 3:27P ORDERING DR: FELIBERTO NATARAJAN M.D. THIS DOCUMENT HAS BEEN ELECTRONICALLY SIGNED BY: TREMAINE LACY M.D. ON: Sep 24 2016 10:00P Attending: FELIBERTO NATARAJAN Requesting: FELIBERTO NATARAJAN Requesting Attending Attending ID: [id number] Requesting ID: [id number] Report To 1 ID: Report To 1 Name: , Report To 1 FAX: -- Report To 2 ID: Report To 2 Name: , Report To 2 FAX: -- NextGen Order #: Historical Provider IMG MRI PROCEDURES Final Result * Serum estimated glomerular filtration rate (09/23/2016 11:46 AM STITCHER SPECIAL MACHINE) eGFR >60 ml/min/1.73 m2 CDR HISTORICAL RESULTS Serum 09/23/2016 11:4 6 AM STITCHER SPECIAL MACHINE Result [facility] Feliberto Funk MD LAB BLOOD ORDERABLES Fin al Result Performing Organization Address [facility] de Phone Number CDR HISTORICAL RESULTS * Blood creatinine (09/23/2016 11:46 AM STITCHER SPECIAL MACHINE) Creatinine 1.15 0.70 - 1.40 mg/dl CDR HISTORICAL RESULTS Blood specimen (specimen) 09/23/2016 11:46 AM STITCHER SPECIAL MACHINE Feliberto Funk MD LAB BLOOD ORDERABLES Fin al Result Performing Organization Address [facility] de Phone Number CDR HISTORICAL RESULTS * DISCHARGE LABORATORY CUMULATIVE REPORT (09/23/2016) Narrative 09/23/2016 Ordered by an unspecified provider. Historical Provider LAB BLOOD ORDERABLES Krystina l Result documented in this encounter Visit Diagnoses Diagnosis Low vision, both eyes Moderate or severe vision impairment, both eyes, impairment level not further specified Abnormality of gait and mobility documented in this encounter Care Teams Fishing Tool Supervisor Relationship Specialty [place] [address] [address] [facility] [address] [place] [address] PCP - General 06/27/12 10/20/16 documented as of this encounter
--- OUTSIDE RECORDS SUMMARY | 2024-10-11 02:04 | XMS_ITS | Encounter Summary ---
Author Organization [facility] Healthcare Address [address] [place] [address] Care Team Providers Care Refractory Mixer Name Role Phone Santino Funk MD Primary Care Provider + Encounter Details Date Type Department Care Team (Late st Contact Info) Description 02/15/2018 3:50 PM CDT Lab [address] [address] Social History Tobacco Use Types Packs/Day Years Used Date Smoking Tobacco: Former Alcohol Use Standard Drinks/Week Comments Yes 0 (1 standard drink = 0.6 oz pur e alcohol) Sex and Gender Information Value Date Recorded Sex Assigned at Not on file Legal Sex Male 3:25 PM PHOTOGRAPHER STILL Gender Identity Not on file Sexual Orientation Not on file documented as of this encounter Plan of Treatment Upcoming Encounters Date Type Department Care Team (Latest Contact Info) Description 10/23/2024 10:00 AM PHOTOGRAPHER STILL Hospital Encounter [facility] Operating Room [address] [place] [address] [place] [address] [phone] 10/23/2024 10:00 AM PHOTOGRAPHER STILL - 10/23/2024 1:00 PM PHOTOGRAPHER STILL Surgery [facility] Operating Room [address] [place] [address] [place] [address] [address] ARTHROPLASTY TOTAL KNEE LEFT Scheduled Procedures Name Priority Associated Diagnoses Date/Ti me ARTHROPLASTY TOTAL KNEE left knee osteoarthritis 10/23/2024 10:00 AM PHOTOGRAPHER STILL ESOPHAGOGASTRODUODENOSCOPY Dysphagia, unspecified type documented as of this encounter Procedures Procedure Name Priority Date/Time Associated Diagnosis Comments SURGICAL PATHOLOGY Routine 02/15/2018 3: 52 PM CDT documented in this encounter Results * Surgical pathology (02/15/2018 3:52 PM CDT) 02/15/2018 3:52 PM CDT 02/15/2018 3:52 PM CDT Narrative 02/16/2018 1:38 PM CDT [facility] Department of Pathology [address] [place], [place] [id number] Final Report * Amended * ?Patient Name: ABRAHAN GTZ JR Address: [address] [place] [address] Service: Laboratory ??[place], [place] ??[address] Location: Lab Taken: 02/15/2018 Gender: M Received 02/15/2018 : 1944 (Age: 73) [facility] #: [id number] Accessioned: 02/15/2018 ?? Patient Type: CH Ref Lab Reported 02/16/2018 Physician(s): Dr. Gianna Kelly M.D. ?? Diagnosis: Skin, right breast/areola, biopsy: ? - Reactive squamous epithelium with overlying hyperkeratosis and serum crust. - Mild perivascular chronic inflammation with focus of prominent acute inflammation. - See microscopic description. ?? Tal Pascual M.D. ??Report Electronically Reviewed and Signed Out By ??Tal Pascual M.D. ??02/16/2018 13:38:27 Amendments: Amended: ??02/16/2018 Previous Signout Date: 02/16/2018 Reason: ??Typographical Error Word correction in final diagnosis. Specimen(s) Received: A: Right breast/areola Microscopic Description: Sections show reactive appearing squamous epithelium with overlying hyperkeratosis and serum crust. ??The underlying superficial dermal tissue shows some mild perivascular chronic inflammation. ??At the edge of the biopsy there is an area showing fairly prominent acute inflammation which is suggestive of a possible abscess cavity. ??No significant cytologic atypia or evidence of malignancy is appreciated in the current specimen. ??Clinical correlation is advised. Dr. Navarrete has also reviewed this case and agrees with the findings. Clinical History: Breast pain, right Description: Skin lesion of breast Gross Description: The specimen is received in one container labeled Abrahan Gtz . ??It is a 1 mm in diameter punch biopsy of brown skin measuring 4 mm in depth. ??Inked and all in one cassette. ??Tal Chavez M.D./Shawna Valdes. Complete report with images are only be viewable in the PDF report The performance characteristics of some immunohistochemical stains, fluorescence in-situ hybridization tests and immunophenotyping by flow cytometry cited in this report (if any) were determined by the Surgical Pathology Department at [facility] as part of an ongoing quality assurance tester program and in compliance with federally [...] characteristics determined by the Surgical Pathology Department [facility]. ??It has not been cleared or approved by the U. S. Food and Drug Administration. Gianna Kelly MD PhD LAB PATHO LOGY ORDERABLES Edited Result - Final documented in this encounter Visit Diagnoses Not on filedocumented in this encounter Care Teams Refractory Mixer Relationship Specialty [place] [address] [address] [facility] [address] [place] [address] PCP - General 11/12/16 03/11/22 documented as of this encounter
--- OUTSIDE RECORDS SUMMARY | 2024-10-11 02:04 | XMS_ITS | Encounter Summary ---
Author Organization [facility] Healthcare Address [address] [place] [address] Care Team Providers Care Foundation Drill Operator Helper Name Role Phone Unavailable Primary Care Provider Unavailabl e Encounter Details Date Type Department Care Team (Late st Contact Info) Description 05/15/2007 3:38 PM CDT - 05/16/2007 6:06 PM CDT Hospital Encounter [facility]INCON[facility] Good, [place] [address] [phone] Social History Tobacco Use Types Packs/Day Years Used Date Smoking Tobacco: Never Assessed Sex and Gender Information Value Date Recorded Sex Assigned at Not on file Legal Sex Male 3:25 PM STEEL ROD BUSTER Gender Identity Not on file Sexual Orientation Not on file documented as of this encounter Plan of Treatment Upcoming Encounters Date Type Department Care Team (Latest Contact Info) Description 10/23/2024 10:00 AM STEEL ROD BUSTER Hospital Encounter [facility] Operating Room [address] [place] [address] [place] [address] [phone] 10/23/2024 10:00 AM STEEL ROD BUSTER - 10/23/2024 1:00 PM STEEL ROD BUSTER Surgery [facility] Operating Room [address] [place] [address] [place] [address] [address] [place] [address] ARTHROPLASTY TOTAL KNEE LEFT Scheduled Procedures Name Priority Associated Diagnoses Date/Ti me ARTHROPLASTY TOTAL KNEE left knee osteoarthritis 10/23/2024 10:00 AM STEEL ROD BUSTER ESOPHAGOGASTRODUODENOSCOPY Dysphagia, unspecified type documented as of this encounter Visit Diagnoses Not on filedocumented in this encounter
--- OUTSIDE RECORDS SUMMARY | 2024-10-11 02:04 | XMS_ITS | Encounter Summary ---
Author Organization [facility] Healthcare Address [address] [place] [address] Care Team Providers Care Cake Tester Name Role Phone Santino Funk MD Primary Care Provider + Encounter Details Date Type Department Care Team (Late st Contact Info) Description 01/26/2018 12:00 PM CDT - 01/26/2018 11:59 PM CDT Hospital Encounter [facility] Imaging and Radiology [address] [place] [address] Gianna Kelly MD PhD [id number] [place] [address] 1, Ronni Soriano Md Breast pain, left Discharge Disposition: Discharge to home or self care Social History Tobacco Use Types Packs/Day Years Used Date Smoking Tobacco: Former Alcohol Use Standard Drinks/Week Comments Yes 0 (1 standard drink = 0.6 oz pur e alcohol) Sex and Gender Information Value Date Recorded Sex Assigned at Not on file Legal Sex Male 3:25 PM SUPPORT REPRESENTATIVE Gender Identity Not on file Sexual Orientation Not on file documented as of this encounter Medications at Time of Discharge omeprazole (PriLOSEC) 20 mg capsule take 1 capsule by oral route every day before a meal 0 0 10/21/2016 4 pyridostigmine (MESTINON) 60 mg tablet take 1/2 [...] (Latest Contact Info) Description 10/23/2024 10:00 AM SUPPORT REPRESENTATIVE Hospital Encounter [facility] Operating Room [address] [place] [id number] [place] [address] [address] 10/23/2024 10:00 AM SUPPORT REPRESENTATIVE - 10/23/2024 1:00 PM SUPPORT REPRESENTATIVE Surgery [facility] Operating Room [address] [place] [address] [place] [address] [address] ARTHROPLASTY TOTAL KNEE LEFT Scheduled Procedures Name Priority Associated Diagnoses Date/Ti me ARTHROPLASTY TOTAL KNEE left knee osteoarthritis 10/23/2024 10:00 AM SUPPORT REPRESENTATIVE ESOPHAGOGASTRODUODENOSCOPY Dysphagia, unspecified type documented as of this encounter Procedures Procedure Name Priority Date/Time Associated Diagnosis Comments DIAGNOSTIC MAMMOGRAM BILATERAL W CARRIE Schedule Routine, Read Routine (OP Routine) 01/26/2018 12:36 PM CDT Breast pain, left documented in this encounter Results * Diagnostic Mammogram Bilateral W Carrie (01/26/2018 12:36 PM CDT) Anatomical Region Laterality Modality Breast Bilateral Mammography Impressions 01/26/2018 2:59 PM CDT 1. ??BIRADS Category 2, benign findings. ??Though a palpable thickening is felt in the right areola in the lower inner quadrant, no discrete mammographic or definite ultrasonographic abnormality is visualized. Evaluation by breast surgeon is recommended. 2. ??The findings and recommendations were discussed with the patient. Electronically signed by: Jaja Schwartz M.D. Narrative 01/26/2018 2:59 PM CDT EXAMS: 1. ??Bilateral digital diagnostic mammogram with digital tomosynthesis 2. ??Limited right breast ultrasound DATE: 01/26/2018 12:40 PM CLINICAL HISTORY: Palpable thickening, scaliness and itching of right areola in a male patient with no personal or family history of breast cancer TECHNIQUE: Bilateral full field digital mammography and digital tomosynthesis ??were performed in the CC, MLO and ML projections. No prior study is available for comparison. CAD was utilized. ??Multiple ultrasonographic images of the periareolar and retroareolar right breast were obtained by the technologist and submitted for review. In addition, I personally performed physical examination and ultrasonographic evaluation of the periareolar and retroareolar right breast. ??No prior right breast ultrasound is available for comparison. FINDINGS: The breast parenchyma is fatty. ??There is mild skin thickening in the areolar region of the inner right breast. ??No discrete nodule or mass is identified in the breast parenchyma. There are no suspicious microcalcifications. ??Ultrasonographic evaluation of the periareolar and retroareolar right breast was recommended and performed. On physical exam, there is mild to moderate palpable thickening of the area (the 3:00 to the 6:00 position of the right breast. Sonographic evaluation of this area yields some possible thickening of the skin compared to the rest of the areola, though this is questionable. ??No discrete nodule or mass is identified. ??The underlying breast parenchyma consistent of normal fatty tissue without discrete nodule or mass. Gianna Kelly MD PhD IMG MAMMO PROCEDURES Final Result documented in this encounter Visit Diagnoses Diagnosis Breast pain, left documented in this encounter Care Teams Cake Tester Relationship Specialty [place] [id number] [address] PCP - General 11/12/16 03/11/22 documented as of this encounter
--- OUTSIDE RECORDS SUMMARY | 2024-10-11 02:04 | XMS_ITS | Encounter Summary ---
Author Organization [facility] Healthcare Address [address] [place] [address] Care Team Providers Care Lozenge Maker Name Role Phone Santino Funk MD Primary Care Provider + Encounter Details Date Type Department Care Team (Late st Contact Info) Description 08/16/2018 3:35 PM DISHWASHER PREPARER Lab [facility] [address] [place] [address] [place] [address] [facility] [address] [place] [address] Mild cognitive impairment Discharge Disposition: Discharge to home or self care Social History Tobacco Use Types Packs/Day Years Used Date Smoking Tobacco: Former Smokeless Tobacco: Never Alcohol Use Standard Drinks/Week Comments Yes 0 (1 standard drink = 0.6 oz pur e alcohol) Sex and Gender Information Value Date Recorded Sex Assigned at Not on file Legal Sex Male 3:25 PM DISHWASHER PREPARER Gender Identity Not on file Sexual Orientation Not on file documented as of this encounter Discharge Disposition Disposition Code Departure Means Destination Discharge to home or self care documented in this encounter Plan of Treatment Upcoming Encounters Date Type Department Care Team (Latest Contact Info) Description 10/23/2024 10:00 AM DISHWASHER PREPARER Hospital Encounter [facility] Operating Room [address] [place] [address] [place] [address] [facility] [address] [place] [address] 10/23/2024 10:00 AM DISHWASHER PREPARER - 10/23/2024 1:00 PM DISHWASHER PREPARER Surgery [facility] Operating Room [address] [place] [address] [place] [address] [address] [place] [address] ARTHROPLASTY TOTAL KNEE LEFT Scheduled Procedures Name Priority Associated Diagnoses Date/Ti me ARTHROPLASTY TOTAL KNEE left knee osteoarthritis 10/23/2024 10:00 AM DISHWASHER PREPARER ESOPHAGOGASTRODUODENOSCOPY Dysphagia, unspecified type documented as of this encounter Procedures Procedure Name Priority Date/Time Associated Diagnosis Comments THYROID FUNCTION CASCADE Routine 08/16/2018 9:04 AM DISHWASHER PREPARER Mild cognitive impairment METHYLMALONIC ACID, SERUM Routine 08/16/2018 9:04 AM DISHWASHER PREPARER Mild cognitive impairment T4, FREE Routine 08/16/2018 9:04 AM DISHWASHER PREPARER Mild cognitive impairment FOLATE Routine 08/16/2018 9:04 AM DISHWASHER PREPARER Mild cognitive impairment VITAMIN B12 Routine 08/16/2018 9:04 AM DISHWASHER PREPARER Mild cognitive impairment documented in this encounter Results * (ABNORMAL) T4, free (08/16/2018 9:04 AM DISHWASHER PREPARER) Free T4 1.15(H) 0.61 - 1.12 ng/dL [facility] Blood specimen (specimen) 08/16/2018 9:04 AM DISHWASHER PREPARER 08/16/2018 7:18 PM DISHWASHER PREPARER Narrative [facility] - 08/16/2018 9:26 PM DISHWASHER PREPARER Nayan Mahajan II, MD LAB BLOOD ORDERABLES Final R esult [facility] [address] [address] Department [place] [address] * Folate (08/16/2018 9:04 AM DISHWASHER PREPARER) Pathologist [facility] Folic acid 7.6 >=3.1 ng/mL [facility] [place] Comment: Interpretive Data >3 ?Normal 2.5 - 3.0 Indeterminate <2.5 ?Deficient Current interpretive data was last reviewed on 02/03/2016. Blood specimen (specimen) 08/16/2018 9:04 AM DISHWASHER PREPARER 08/16/2018 7:18 PM DISHWASHER PREPARER Narrative [facility] - 08/16/2018 8:18 PM DISHWASHER PREPARER Nayan Mahajan II, MD LAB BLOOD ORDERABLES Final R esult Performing Organization Address [facility] de Phone Number [facility] [address] [address] [place] [address] * Methylmalonic acid, serum (08/16/2018 9:04 AM DISHWASHER PREPARER) Pathologist [facility] MMA 0.12 <=0.40 nmol/mL [facility] Comment: ADDITIONAL INFORMATION This test was developed and its performance characteristics determined by [facility] in a manner consistent with CLIA requirements. This test has not been cleared or approved by the U.S. Food and Drug Administration. Test Performed by: [facility] - [address] [address] Blood specimen (specimen) 08/16/2018 9:04 AM DISHWASHER PREPARER 08/16/2018 7:18 PM DISHWASHER PREPARER Narrative [facility] - 08/21/2018 12:40 PM DISHWASHER PREPARER Nayan Mahajan II, MD LAB BLOOD ORDERABLES Final R esult Performing Organization Address [facility] de Phone Number [facility] [address] [address] [facility] [employer] [place], [place] [id number] * (ABNORMAL) TSH reflex to free T4 (08/16/2018 9:04 AM DISHWASHER PREPARER) TSH 0.40(L) 0.45 - 5.33 mcIUnit/mL [facility] Blood specimen (specimen) 08/16/2018 9:04 AM DISHWASHER PREPARER 08/16/2018 7:18 PM DISHWASHER PREPARER Narrative [facility] - 08/16/2018 8:07 PM DISHWASHER PREPARER Nayan Mahajan II, MD LAB BLOOD ORDERABLES Final R esult Performing Organization Address [facility] de Phone Number [facility] [address] [address] [facility] [place] [address] * Vitamin B12 (08/16/2018 9:04 AM DISHWASHER PREPARER) Pathologist [facility] Vitamin B12 706 180 - 920 pg/mL [facility] Comment: Interpretive Data Reference Interval (greater than 1 year of age) Normal: ? 180 - 920 pg/ml Indeterminate: ??145 - 180 pg/ml Deficient: ? <145 pg/ml Current Interpretive Data was last revised on 2016 Blood specimen (specimen) 08/16/2018 9:04 AM DISHWASHER PREPARER 08/16/2018 7:18 PM DISHWASHER PREPARER Narrative [facility] - 08/16/2018 8:19 PM DISHWASHER PREPARER Nayan Mahajan II, MD LAB BLOOD ORDERABLES Final R esult Performing Organization Address [facility] de Phone Number [facility] [address] [address] [facility] [place] [address] documented in this encounter Visit Diagnoses Diagnosis Mild cognitive impairment Mild cognitive impairment, so stated documented in this encounter Care Teams Lozenge Maker Relationship Specialty [place] [address] [address] [place] [address] PCP - General 11/12/16 03/11/22 documented as of this encounter
--- OUTSIDE RECORDS SUMMARY | 2024-10-11 02:04 | XMS_ITS | Encounter Summary ---
Author Organization [facility] Address [address] [place] [address] Care Team Providers Care Senior Energy Analyst Name Role Phone Santino Funk MD Primary Care Provider + Reason for Visit * Reason Comments Memory Loss Encounter Details Date Type Department Care Team (Late st Contact Info) Description 08/16/2018 8:30 AM INTERNET MARKETING DIRECTOR Office Visit [facility] [address] [facility] [address] [address] Nayan [place]ajan II, [place] [id number] [place] [address] [address] [address] Mild cognitive impairment (Primary Dx) Social History Tobacco Use Types Packs/Day Years Used Date Smoking Tobacco: Former Smokeless Tobacco: Never Alcohol Use Standard Drinks/Week Comments Yes 0 (1 standard drink = 0.6 oz pur e alcohol) Sex and Gender Information Value Date Recorded Sex Assigned at Not on file Legal Sex Male 3:25 PM INTERNET MARKETING DIRECTOR Gender Identity Not on file Sexual Orientation Not on file documented as of this encounter Last Filed Vital Signs Vital Sign Reading Time Taken Comments Blood Pressure 126/82 08/16/2018 8:34 AM INTERNET MARKETING DIRECTOR Pulse 54 08/16/2018 8:34 AM INTERNET MARKETING DIRECTOR Temperature - - Respiratory Rate 16 08/16/2018 8:34 AM INTERNET MARKETING DIRECTOR Oxygen Saturation - - Inhaled Oxygen Concentration - - Weight 101.9 kg (224 lb 10.4 oz) 08/16/2018 8:34 AM INTERNET MARKETING DIRECTOR Height 182.9 cm (6') 08/16/2018 8:34 AM INTERNET MARKETING DIRECTOR Body Mass Index 30.47 08/16/2018 8:34 AM INTERNET MARKETING DIRECTOR documented in this encounter Progress Notes * Nayan Mahajan MD - 08/16/2018 8:30 AM [facility] Neurology Abrahan Gtz Jr. CONSULTATION 08/16/2018 OV: Consultation at the request of Dr. Funk for an opinion regarding memory loss. I have personally taken a history, examined the patient and determined the assessment and plan as outlined below. Chief Complaint. Chief Complaint Patient presents with ??? Memory Loss HPI. Patient is a 74 y.o. male patient of Santino Funk MD This is a patient I last saw a year ago for complaints of diplopia. The patient was sent to Neuro-Ophthalmology and myasthenia gravis was excluded. He had cataract surgery but continues to complain of diplopia. He is due to follow up with his travel money advisor. The patient comes in with a new complaint. He reports that he has memory loss and is been going on for over a year now. He has difficulty coming up with names. On 1 occasion he was giving a talk and he was supposed to mention his Co chair minutes name but could not remember that person's name hours later he was able to remember it he would forget conversations med hours later will be able to remember that particular conversation. He has to keep a note book or keep things on his phones to remember important birthdays and dates. He remains independent in his self-care and gait. He lives with his . There has been no incontinence of bladder or bowel. He takes care of his own finances. He drives his own motor vehicle and he has not gotten lost go on occasion he may miss a few exits. 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 The patient's symptoms came on gradually without any triggers there are no other aggravating or relieving factors. There areno other associated neurological complaints. There is no depression anxiety personality change paran oid ideation or hallucinations. Past Medical History: Diagnosis Date ??? Acute gastric ulcer without hemorrhage or perforation Ulcer, gastric, acute - (Added by TW Conv) ??? Depression Depression ??? Gastroesophageal reflux disease GERD ??? Osteoarthritis Osteoarthritis ??? Peptic ulcer Peptic ulcer disease ??? Personal history of diseases of skin or subcutaneous tissue History of rashes as a child - (Added by TW Conv) ??? Personal history of other diseases of the digestive system History of gastroesophageal reflux (GERD) - (Added by TW Conv) ??? Personal history of other diseases of the musculoskeletal system and connective tissue History of arthritis - (Added by TW Conv) ??? Personal history of other diseases of the nervous system and sense organs History of cataract - (Added by TW Conv) ??? Personal history of other diseases of the respiratory system History of asthma - (Added by TW Conv) ??? Personal history of other mental and behavioral disorders History of depression - (Added by TW Conv) ??? Personal history of other specified conditions History of seizure - (Added by TW Conv) ??? Visual disturbance Vision changes - (Added by TW Conv) Past Surgical History: Procedure Laterality Date ??? HERNIA REPAIR Hernia repair ??? CA ABDOMEN SURGERY PROC UNLISTED Hernia Repair - (Added by TW Conv) HOME MEDICATIONS : doxycycline (VIBRAMYCIN) 100 mg capsule ergocalciferol (VITAMIN D) 50,000 unit capsule HYDROcodone-acetaminophen (NORCO) 7.5-325 mg per tablet loratadine 10 mg capsule LORazepam (ATIVAN) 1 mg tablet meloxicam (MOBIC) 15 mg tablet metoclopramide (REGLAN) 10 mg tablet omeprazole (PriLOSEC) 20 mg capsule temazepam (RESTORIL) 15 mg capsule predniSONE (DELTASONE) 1 mg tablet pyridostigmine (MESTINON) 60 mg tablet sildenafil (VIAGRA) 100 mg tablet temazepam (RESTORIL) 15 mg capsule No Known Allergies Social History Substance Use Topics ??? Smoking status: Former Smoker ??? Smokeless tobacco: Never Used ??? Alcohol use Yes Family History Problem Relation Age of Onset ??? Heart failure Other Family history of Congestive heart failure; ??? Heart disease Other Family history of Heart disease; ??? Osteoarthritis Other Family history of Osteoarthritis; ??? Osteoporosis Other Family history of Osteoporosis; Review of Systems Constitution: Negative for chills, decreased appetite, diaphoresis, fever, weakness, malaise/fatigue, night sweats, weight gain and weight loss. HENT: Negative for congestion, hearing loss, hoarse voice, nosebleeds, sore throat and tinnitus. Eyes: Positive for double vision. Negative for blurred vision and visual halos. Cardiovascular: Negative for [...] pain, frequency,hematuria, hesitancy and incomplete emptying. Neurological: Negative for aphonia, brief paralysis, difficulty with concentration, disturbances incoordination, excessive daytime sleepiness, dizziness, focal weakness, headaches, light-headedness,loss of balance, numbness, paresthesias, seizures, sensory change, tremors and vertigo. Psychiatric/Behavioral: Positive for memory loss. Negative for altered mental status, depression, hallucinations, substance abuse and suicidal ideas. The patient does not have insomnia and is not nervous/anxious. Allergic/Immunologic: Negative for environmental allergies and HIV exposure. Physical Exam Constitutional: He is oriented to person, place, and time. He appears well- developed and well-nourished. HENT: Head: Normocephalic and atraumatic. Eyes: Pupils are equal, round, and reactive to light. Conjunctivae and EOM are normal. Neck: Normal range of motion. Cardiovascular: Normal rate, regular rhythm and normal heart sounds. Pulmonary/Chest: Breath sounds normal. Abdominal: Soft. Musculoskeletal: He exhibits edema. Neurological: He is oriented to person, place, and time. He has normal strength. He has a normal Pgpzkl-Vwza-Vmvyyp Test. Reflex Scores: Tricep reflexes are 1+ on [...] side and 1+ on the left side. Skin: Skin is warm. Psychiatric: He has a normal mood and affect. His speech is normal. Vitals reviewed. Neurologic Exam Mental Status Oriented to person, place, and time. Attention: normal. Concentration: normal. Speech: speech is normal Level of consciousness: alert Normal comprehension. SLUMS 22 , missed 3 for memory, 5-9 animals named, recalled 2 objects, 8537 backwards incorrect, missed one for the story Cranial Nerves Cranial nerves II through XII intact. CN II Visual white full to confrontation. CN III, IV, Pupils are equal, round, and reactive to light. Extraocular motions are normal. Nystagmus: none Diplopia: none Ophthalmoparesis: none CN V Facial sensation intact. CN VII Facial expression full, symmetric. CN VIII CN VIII normal. CN IX, X CN IX normal. CN X normal. Palate: symmetric CN XI CN XI normal. Right trapezius strength: normal Left trapezius strength: normal CN XII CN XII normal. Tongue deviation: none Motor Exam Muscle bulk: normal Overall muscle tone: normal Strength Strength 5/5 throughout. Sensory Exam Light touch normal. Gait, Coordination, and Reflexes Gait Gait: (antalgic) Coordination Finger to nose coordination: normal Tremor Resting tremor: absent Intention tremor: absent Action tremor: absent Reflexes Right brachioradialis: 1+ Left brachioradialis: 1+ Right biceps: 1+ Left biceps: 1+ Right triceps: 1+ Left triceps: 1+ Right patellar: 1+ Left patellar: 1+ Right achilles: 1+ Left achilles: 1+ Right formula bottler: 1+ Left formula bottler: 1+ Impression and Recommendations. Mild cognitive impairment the patient has a [facility] mental status exam score of 22 indicative of a mild cognitive impairment. This will be monitored for progression. At this point in time he does not have dementia of the Alzheimer's type. He was encouraged to stay physically active as well as socially active. His vitamin B12 folate methylmalonic acid and thyroid function will be checked. He will be re-evaluated in 6 months. At this point in time there is no indication to start any cholinesterase inhibitors. The patient was agreeable with this plan of action. Nayan Mahajan MD RNET MARKETING DIRECTOR documented in this encounter Plan of Treatment Upcoming Encounters Date Type Department Care Team (Latest Contact Info) Description 10/23/2024 10:00 AM INTERNET MARKETING DIRECTOR Hospital Encounter [facility] Operating Room [address] [place] [address] [place] [address] [facility] [address] [place], [place] [id number] 10/23/2024 10:00 AM INTERNET MARKETING DIRECTOR - 10/23/2024 1:00 PM INTERNET MARKETING DIRECTOR Surgery [facility] Operating Room [address] [place] [address] [place] [address] [address] [facility] [address] [place] [address] ARTHROPLASTY TOTAL KNEE LEFT Scheduled Procedures Name Priority Associated Diagnoses Date/Ti me ARTHROPLASTY TOTAL KNEE left knee osteoarthritis 10/23/2024 10:00 AM INTERNET MARKETING DIRECTOR ESOPHAGOGASTRODUODENOSCOPY Dysphagia, unspecified type documented as of this encounter Results * Folate (08/16/2018 9:04 AM INTERNET MARKETING DIRECTOR) Folic acid 7.6 >=3.1 ng/mL MARVIN Comment: Interpretive Data >3 ?Normal 2.5 - 3.0 Indeterminate <2.5 ?Deficient Current interpretive data was last reviewed on 02/03/2016. Blood specimen (specimen) 08/16/2018 9:04 AM INTERNET MARKETING DIRECTOR 08/16/2018 7:18 PM INTERNET MARKETING DIRECTOR Narrative MARVIN - 08/16/2018 8:18 PM INTERNET MARKETING DIRECTOR Nayan Mahajan II, MD LAB BLOOD ORDERABLES Final R esult [facility]VIN [address] [address] [place] [address] * Methylmalonic acid, serum (08/16/2018 9:04 AM INTERNET MARKETING DIRECTOR) MMA 0.12 <=0.40 nmol/mL MARVIN Comment: ADDITIONAL INFORMATION This test was developed and its performance characteristics determined by [facility] in a manner consistent with CLIA requirements. This test has not been cleared or approved by the U.S. Food and Drug Administration. Test Performed by: [facility] - [address] [address] Blood specimen (specimen) 08/16/2018 9:04 AM INTERNET MARKETING DIRECTOR 08/16/2018 7:18 PM INTERNET MARKETING DIRECTOR Narrative MARVIN - 08/21/2018 12:40 PM INTERNET MARKETING DIRECTOR Nayan Mahajan II, MD LAB BLOOD ORDERABLES Final R esult Performing Organization Address [facility] de Phone Number [facility] [address] [address] [place] [address] * (ABNORMAL) TSH reflex to free T4 (08/16/2018 9:04 AM INTERNET MARKETING DIRECTOR) TSH 0.40(L) 0.45 - 5.33 mcIUnit/mL MARVIN Blood specimen (specimen) 08/16/2018 9:04 AM INTERNET MARKETING DIRECTOR 08/16/2018 7:18 PM INTERNET MARKETING DIRECTOR Narrative MARVIN - 08/16/2018 8:07 PM INTERNET MARKETING DIRECTOR Nayan Mahajan II, MD LAB BLOOD ORDERABLES Final R esult Performing Organization Address [facility] de Phone Number [facility] [address] [address] [place] [address] * Vitamin B12 (08/16/2018 9:04 AM INTERNET MARKETING DIRECTOR) Vitamin B12 706 180 - 920 pg/mL MARVIN Comment: Interpretive Data Reference Interval (greater than 1 year of age) Normal: ? 180 - 920 pg/ml Indeterminate: ??145 - 180 pg/ml Deficient: ? <145 pg/ml Current Interpretive Data was last revised on 2016 Blood specimen (specimen) 08/16/2018 9:04 AM INTERNET MARKETING DIRECTOR 08/16/2018 7:18 PM INTERNET MARKETING DIRECTOR Narrative MARVIN FISHER - 08/16/2018 8:19 PM INTERNET MARKETING DIRECTOR Nayan Mahajan II, MD LAB BLOOD ORDERABLES Final R esult [facility] [address] [address] [place] [address] documented in this encounter Visit Diagnoses Diagnosis Mild cognitive impairment- Primary Mild cognitive impairment, so stated Mild cognitive impairment Mild cognitive impairment, so stated documented in this encounter Discontinued Medications Medication Sig Discontinue Reason Start Date End Da te temazepam (RESTORIL) 15 mg capsule take 2 Capsule by oral route every day at bedtime as needed Therapy completed 10/21/2016 08/16/2018 predniSONE (DELTASONE) 1 mg tablet Take by mouth. Therapy completed 08/16/2018 pyridostigmine (MESTINON) 60 mg tablet take 1/2 tablet by oral route 3 times every day Therapy completed 11/12/2016 08/16/2018 sildenafil (VIAGRA) 100 mg tablet take 1/2 Tablet by oral route every week as needed approximately 1 hour before sexual activity Therapy completed 10/21/2016 08/16/2018 documented as of this encounter Historical Medications * This list may reflect changes made after this encounter. ergocalciferol (VITAMIN D) 50,000 unit capsuleIndication s:Vitamin D Deficiency,takes on Wednesday Take 50,000 Units by mouth once a week Pt not taking 12/30/2019 added in this encounter Care Teams Senior Energy Analyst Relationship Specialty [place] [address] [address] [address] PCP - General 11/12/16 03/11/22 documented as of this encounter
--- OUTSIDE RECORDS SUMMARY | 2024-10-11 02:04 | XMS_ITS | Encounter Summary ---
Author Organization [facility] Address [address] [place] [address] Phone Care Team Providers Care Shaping Machine Tender Name Role Phone Santino Funk MD Primary Care Provider + Unknown, Notinfile Primary Care Provider Unavail able No, Physician Primary Care Provider Santino Funk MD Primary Care Provider + Wolfgang Serrano MD Primary Care Provider Wolfgang Serrano MD Primary Care Provider [phone] Wolfgang Serrano MD Unavailable [phone] Unknown, Notinfile Unavailable Unavailable Santino Funk MD Unavailable [phone] Chuy Enriquez MD Unavailable [phone] Luis Felipe Cedillo MD Unavailable [phone] Marlene Thornton MD Unavailable [phone] Encounter Details Date Type Department Care Team (Late st Contact Info) Description 02/15/2018 Orders Only [facility] ProviderGarett MD [address] [place] [address] Social History Tobacco Use Types Packs/Day Years Used Date Smoking Tobacco: Former Alcohol Use Standard Drinks/Week Comments Yes 0 (1 standard drink = 0.6 oz pur e alcohol) Sex and Gender Information Value Date Recorded Sex Assigned at Not on file Legal Sex Male 3:25 PM POT PULLER Gender Identity Not on file Sexual Orientation Not on file documented as of this encounter Plan of Treatment Upcoming Encounters Date Type Department Care Team (Latest Contact Info) Description 10/23/2024 10:00 AM POT PULLER Hospital Encounter [facility] Operating Room [id number] [place] [address] [place] [address] [address] 10/23/2024 10:00 AM POT PULLER - 10/23/2024 1:00 PM POT PULLER Surgery [facility] Operating Room [address] [place] [address] [place] [address] [address] ARTHROPLASTY TOTAL KNEE LEFT Scheduled Procedures Name Priority Associated Diagnoses Date/Ti me ARTHROPLASTY TOTAL KNEE left knee osteoarthritis 10/23/2024 10:00 AM POT PULLER ESOPHAGOGASTRODUODENOSCOPY Dysphagia, unspecified type documented as of this encounter Procedures Procedure Name Priority Date/Time Associated Diagnosis Comments SURGICAL PATHOLOGY 02/15/2018 12 :00 AM CDT documented in this encounter Results * SURGICAL PATHOLOGY (02/15/2018 12:00 AM CDT) Narrative 02/15/2018 12:00 AM CDT Ordered by an unspecified provider. Historical Provider LAB PATHOLOGY ORDERABLES Final Result documented in this encounter Visit Diagnoses Not on filedocumented in this encounter Additional Health Concerns Infection Onset Date Last Indicated Resolved Time COVID: Suspected 12/17/2021 12/17/2021 12/17/2021 10:19 PM POT PULLER documented as of this encounter Care Teams Shaping Machine Tender Relationship Specialty [place] [address] [facility] [place] [address] PCP - General 11/12/16 03/11/22 Unknown, Notinfile PCP - General 03/12/22 05/13/22 No, Physician PCP - General 05/14/22 09/29/22 [place] [address] [facility] [place] [address] PCP - General Internal Medicine 09/30/22 05/04/23 Wolfgang Serrano MD PCP - General Family Medicine 05/05/23 08/02/24 [place] [address] [place] [address] PCP - General Family Medicine 08/03/24 Wolfgang Serrano MD Family Medicine 08/03/24 Unknown, Notinfile 03/12/22 [place] [address] [address] [facility] [place] [address] 03/12/22 Chuy Enriquez MD [address] [facility] [address] [place] [address] Consulting Physician Pulmonary Disease 10/13/23 Luis Felipe Cedillo MD [address] [facility] [address] [place] [address] Consulting Physician Gastroenterology 10/13/23 Marlene Thornton MD [address] [place] [address] Surgeon Vascular Surgery 11/10/23 documented as of this encounter
--- OUTSIDE RECORDS SUMMARY | 2024-10-11 02:04 | XMS_ITS | Encounter Summary ---
Author Organization [facility] Address [address] [place] [address] Care Team Providers Care Platen Drier Operator Name Role Phone Unavailable Primary Care Provider Unavailabl e Encounter Details Date Type Department Care Team (Late st Contact Info) Description 12/08/2010 12:01 AM WILDLIFE CONSERVATIONIST - 12/08/2010 11:59 PM WILDLIFE CONSERVATIONIST Hospital Encounter [facility] [place], [place] [address] [facility] [place], [place] [id number] Backache; Memory loss Social History Tobacco Use Types Packs/Day Years Used Date Smoking Tobacco: Never Assessed Sex and Gender Information Value Date Recorded Sex Assigned at Not on file Legal Sex Male 3:25 PM WILDLIFE CONSERVATIONIST Gender Identity Not on file Sexual Orientation Not on file documented as of this encounter Plan of Treatment Upcoming Encounters Date Type Department Care Team (Latest Contact Info) Description 10/23/2024 10:00 AM WILDLIFE CONSERVATIONIST Hospital Encounter [facility] Operating Room [address] [place] [address] [place] [address] [id number] 10/23/2024 10:00 AM WILDLIFE CONSERVATIONIST - 10/23/2024 1:00 PM WILDLIFE CONSERVATIONIST Surgery [facility] Operating Room [address] [place] [address] [place] [address] [facility] [address] [place] [address] ARTHROPLASTY TOTAL KNEE LEFT Scheduled Procedures Name Priority Associated Diagnoses Date/Ti me ARTHROPLASTY TOTAL KNEE left knee osteoarthritis 10/23/2024 10:00 AM WILDLIFE CONSERVATIONIST ESOPHAGOGASTRODUODENOSCOPY Dysphagia, unspecified type documented as of this encounter Visit Diagnoses Diagnosis Backache Unspecified backache Memory loss documented in this encounter
--- OUTSIDE RECORDS SUMMARY | 2024-10-11 02:04 | XMS_ITS | Encounter Summary ---
Author Organization [facility] Address [address] [facility] [address] [place] [id number] Care Team Providers Care Chief Business Officer Name Role Phone Santino Funk MD Primary Care Provider + Reason for Referral * Orthopedic (Routine) - Closed Specialty Diagnoses / Procedures Referred By Dillan mccallum Referred To Contact Diagnoses Primary osteoarthritis of left knee Procedures Large Joint Arthrocentesis George Sepulveda MD Phone: tel: fax: Referral ID Status Reason Start Date Expiration Date Visits Re quested Visits Authorized [id number] Closed 08/08/2018 02/17/2020 1 1 * Diagnostic Imaging (Routine) - Closed Specialty Diagnoses / Procedures Referred By Dillan mccallum Referred To Contact Diagnoses Chronic pain of left knee Procedures XR Knee Left 4+ View George Sepulveda MD Phone: tel: fax: Referral ID Status Reason Start Date Expiration Date Visits Re quested Visits Authorized [id number] Closed 08/08/2018 02/17/2020 1 1 Reason for Visit * Reason Comments Pain Encounter Details Date Type Department Care Team (Latest Contact Info) Description 08/08/2018 8:00 AM CDT Office Visit [facility] [id number] [facility] [address] [place] [address] [place] [address] [facility] [address] [place] [address] Primary osteoarthritis of left knee (Primary Dx) Social History Tobacco Use Types Packs/Day Years Used Date Smoking Tobacco: Former Alcohol Use Standard Drinks/Week Comments Yes 0 (1 standard drink = 0.6 oz pur e alcohol) Sex and Gender Information Value Date Recorded Sex Assigned at Not on file Legal Sex Male 3:25 PM CEMENT TILE MAKER Gender Identity Not on file Sexual Orientation Not on file documented as of this encounter Last Filed Vital Signs Vital Sign Reading Time Taken Comments Blood Pressure - - Pulse - - Temperature - - Respiratory Rate - - Oxygen Saturation - - Inhaled Oxygen Concentration - - Weight 103.4 kg (228 lb) 08/08/2018 9:14 AM CDT Height 182.9 cm (6') 08/08/2018 9:14 AM CDT Body Mass Index 30.92 08/08/2018 9:14 AM CDT documented in this encounter Progress Notes * George Sepulveda MD - 08/08/2018 8:00 AM CDTAssociated Order(s): LARGE JOINT ARTHROCENTESIS Post-Procedure Diagnose(s): Primary osteoarthritis of left knee NEW PATIENT VISIT Subjective CHIEF COMPLAINT He had concerns including Pain of the Left Knee. HISTORY OF PRESENT ILLNESS Patient presents today for new patient evaluation of left knee pain. Patient reports longstanding pain in the left knee. He reports subluxation events with his knee cap which he believes stems from the [employer]. He has never had injections. He has done formal therapy. Pain Assessment Pain Assessment: 0-10 Pain Score: 10 - Worst possible pain Pain Location: Knee Pain Orientation: Left Pain Descriptors: Sharp Pain Frequency: Intermittent Pain Onset: Sudden Result of Injury: No Work-Related Injury: No Pain Interventions: Medication (See MAR) PAST MEDCIAL HISTORY He has a past [...] list which includes the following prescription(s): doxycycline, hydrocodone-acetaminophen, loratadine, lorazepam, meloxicam, metoclopramide, omeprazole, prednisone, pyridostigmine, temazepam, temazepam, and viagra. ALLERGIES He has No Known Allergies. SOCIAL HISTORY He reports that he has quit smoking. He does not have any smokeless tobacco history on file. He reports that he drinks alcohol. He reports that he does not use drugs. FAMILY HISTORY His family history includes Heart disease in an other family member; [...] PHYSICAL EXAM Ht 182.9 cm (6') Wt 103.4 kg (228 lb) BMI 30.92 kg/m?? Right knee Inspection Erythema: absent Cellulitis: [...] negative REVIEW OF X-RAYS/STUDIES/LABS XR Knee Left 4+ View Radiographs of the left knee reviewed and interpreted these demonstrate moderate medial and patellofemoral joint space narrowing consistent with moderate osteoarthritis Assessment/Plan Abrahan was seen today for pain. Diagnoses and all orders for this visit: Primary osteoarthritis of left knee - XR Knee Left 4+ View Large Joint (Hip, Knee, Shoulder) Injection Date/Time: 08/08/2018 9:52 AM Performed by: GEORGE SEPULVEDA Authorized by: GEORGE SEPULVEDA Large Joint Injection/Aspiration: Verbal consent obtained: Yes Supporting Documentation: Indications: Pain and joint swelling Procedure Details: Location: Knee Site: L knee Needle Size: 22 G Approach: Anterolateral Medications: 4 mL lidocaine 10 mg/mL (1 %); 80 mg methylPREDNISolone acetate 40 mg/mL PLAN I discussed treatment options to include non-operative [...] follow up on an as needed basis. George Sepulveda MD documented in this encounter Plan of Treatment Upcoming Encounters Date Type Department Care Team (Latest Contact Info) Description 10/23/2024 10:00 AM CEMENT TILE MAKER Hospital Encounter [facility] [address] [place] [id number] [place] [id number] [place] [id number] 10/23/2024 10:00 AM CEMENT TILE MAKER - 10/23/2024 1:00 PM CEMENT TILE MAKER Surgery [facility] [address] [place] [id number] [place] [address] [id number] ARTHROPLASTY TOTAL KNEE LEFT Scheduled Procedures Name Priority Associated Diagnoses Date/Ti me ARTHROPLASTY TOTAL KNEE left knee osteoarthritis 10/23/2024 10:00 AM CEMENT TILE MAKER ESOPHAGOGASTRODUODENOSCOPY Dysphagia, unspecified type documented as of this encounter Procedures Procedure Name Priority Date/Time Associated Diagnosis Comments XR KNEE LEFT 4 OR MORE VIEWS Schedule Routine, Read Routine (OP Routine) 08/08/2018 9:31 AM CDT Primary osteoarthritis of left knee VA ARTHROCENTESIS ASPIR&/INJ MAJOR JT/BURSA W/O US Routine 08/08/2018 8:00 AM CDT Primary osteoarthritis of left knee documented in this encounter Results * XR Knee Left 4+ View (08/08/2018 9:31 AM CDT) Anatomical Region Laterality Modality Lower Extremities, Knee [facility] Narrative 08/08/2018 9:51 AM CDT Radiographs of the left knee reviewed and interpreted these demonstrate moderate medial and patellofemoral joint space narrowing consistent with moderate osteoarthritis us George Sepulveda MD IMG XR PROCEDURES Final R esult * VA ARTHROCENTESIS ASPIR&/INJ MAJOR JT/BURSA W/O US (08/08/2018 8:00 AM CDT) Narrative George Sepulveda MD - 08/08/2018 8:00 AM CDT George Sepulveda MD ? 08/08/2018 ??9:52 AM Large Joint (Hip, Knee, Shoulder) Injection Date/Time: 08/08/2018 9:52 AM Performed by: GEORGE SEPULVEDA Authorized by: GEORGE SEPULVEDA Large Joint Injection/Aspiration: ??Verbal consent obtained: Yes ?? Supporting Documentation: ??Indications: ??Pain and joint swelling Procedure Details: ??Location: ??Knee ??Site: ??L knee ??Needle Size: ??22 G ??Approach: ??Anterolateral ??Medications: ??4 mL lidocaine 10 mg/mL (1 %); 80 mg methylPREDNISolone acetate 40 mg/mL George Sepulveda MD IN CLINIC/BEDSIDE ORDERAB LES Final Result documented in this encounter Visit Diagnoses Diagnosis Primary osteoarthritis of left knee- Primary documented in this encounter Administered Medications Inactive Administered Medications - up to 3 most recent administrations Medication Order MAR Action Action Date Dose Rate Site lidocaine (XYLOCAINE) 10 mg/mL (1 %) injection 4 mL 4 mL, One-Time Injection, Starting on Wed08/08/18 at 0952, For 1 dose, Indications: Administration of Local AnesthesiaIndications:Administratio n of Local Anesthesia Given 08/08/2018 9:52 AM CDT 4 mL methylPREDNISolone acetate (DEPO-medrol) injection 80 mg 80 mg, intra-articular, One-Time Injection, Starting on 08/08/18 at 0952, For 1 doseIndications:Primary osteoarthritis of left knee Given 08/08/2018 9:52 AM CDT 80 mg documented in this encounter Historical Medications * This list may reflect changes made after this encounter. predniSONE (DELTASONE) 1 mg tablet Take by mouth. 08/16/2018 doxycycline (VIBRAMYCIN) 100 mg capsule Take 100 mg by mouth 2 (two) times a day. 09/19/2018 metoclopramide (REGLAN) 10 mg tablet Take 10 mg by mouth 4 (four) times a day. 09/19/2018 LORazepam (ATIVAN) 1 mg tablet Take 1 mg by mouth every 6 (six) hours as needed for anxiety. 09/19/2018 loratadine 10 mg capsule Take by mouth. 09/19/2018 HYDROcodone-aceta minophen (NORCO) 7.5-325 mg per tabletIndications :Pain 0 06/17/2018 09/22/2018 temazepam (RESTORIL) 15 mg capsuleIndication s:Insomnia Take 15 mg by mouth nightly as needed for sleep 01/21/2018 09/10/2020 meloxicam (MOBIC) 15 mg tablet Take 1 tablet by mouth daily. 06/17/2018 12/14/2019 added in this encounter Care Teams Chief Business Officer Relationship Specialty [place] [id number] [address] PCP - General 11/12/16 03/11/22 documented as of this encounter
--- OUTSIDE RECORDS SUMMARY | 2024-10-11 02:04 | XMS_ITS | Encounter Summary ---
Author Organization [facility] Address [address] [place] [address] Care Team Providers Care Industrial Refrigeration Mechanic Name Role Phone Santino Funk MD Primary Care Provider + Encounter Details Date Type Department Care Team (Late st Contact Info) Description 01/26/2018 12:37 PM CDT - 01/26/2018 11:59 PM CDT Hospital Encounter [facility] [address] [place] [address] Gianna Kelly MD PhD [phone] [place] [address] Breast pain, left Discharge Disposition: Discharge to home or self care Social History Tobacco Use Types Packs/Day Years Used Date Smoking Tobacco: Former Alcohol Use Standard Drinks/Week Comments Yes 0 (1 standard drink = 0.6 oz pur e alcohol) Sex and Gender Information Value Date Recorded Sex Assigned at Not on file Legal Sex Male 3:25 PM BUNCHER MACHINE Gender Identity Not on file Sexual [...] (Latest Contact Info) Description 10/23/2024 10:00 AM BUNCHER MACHINE Hospital Encounter [facility] Operating Room [address] [place] [phone] [place] [phone] [place] [phone] 10/23/2024 10:00 AM BUNCHER MACHINE - 10/23/2024 1:00 PM BUNCHER MACHINE Surgery [facility] Operating Room [address] [place] [phone] [place] [address] [address] ARTHROPLASTY TOTAL KNEE LEFT Scheduled Procedures Name Priority Associated Diagnoses Date/Ti me ARTHROPLASTY TOTAL KNEE left knee osteoarthritis 10/23/2024 10:00 AM BUNCHER MACHINE ESOPHAGOGASTRODUODENOSCOPY Dysphagia, unspecified type documented as of this encounter Procedures Procedure Name Priority Date/Time Associated Diagnosis Comments US BREAST RIGHT LIMITED Schedule Routine, Read Routine (OP Routine) 01/26/2018 1:21 PM CDT Breast pain, left documented in this encounter Results * US Breast Right Limited (01/26/2018 1:21 PM CDT) Anatomical Region Laterality Modality Breast Right Ultrasound Impressions 01/26/2018 2:59 PM CDT 1. ??BIRADS [...] left documented in this encounter Care Teams Industrial Refrigeration Mechanic Relationship Specialty [place] [id number] [address] PCP - General 11/12/16 03/11/22 documented as of this encounter
--- OUTSIDE RECORDS SUMMARY | 2024-10-11 02:16 | XMS_ITS | Continuity of Care Document ---
Author Organization [employer] [place] Address [address] [facility] [address] [place] [address] Phone Care Team Providers Care Benefit Specialist Name Role Phone Grabiel SOLITARIO, Florentino Unavailable Unavailable Procedures Procedure Date Therapeutic Activities Neuromuscular Re-Ed Therapeutic Exercise Therapeutic Activities Neuromuscular Re-Ed Therapeutic Exercise Therapeutic Activities Neuromuscular Re-Ed Therapeutic Exercise Therapeutic Activities Neuromuscular Re-Ed Therapeutic Exercise Therapeutic Activities Neuromuscular Re-Ed Therapeutic Exercise Neuromuscular Re-Ed Therapeutic Activities Therapeutic Exercise Therapeutic Activities Neuromuscular Re-Ed Therapeutic Exercise Therapeutic Activities Neuromuscular Re-Ed Therapeutic Exercise Neuromuscular Re-Ed Therapeutic Exercise Therapeutic Activities Neuromuscular Re-Ed Manual Therapy Therapeutic Exercise Doc neg elder mal no plan Doc neg elder mal no plan PT Evaluation Moderate Complexity Therapeutic Activities Therapeutic Exercise Therapeutic Exercise Progress Note Therapeutic Activities Neuromuscular Re-Ed Therapeutic Activities Therapeutic Exercise Neuromuscular Re-Ed Hot or Cold Pack Therapeutic Activities Neuromuscular Re-Ed Hot or Cold Pack Electrical Stimulation Therapeutic Activities Neuromuscular Re-Ed Electrical Stimulation Hot or Cold Pack Therapeutic Activities Neuromuscular Re-Ed Therapeutic Exercise Hot or Cold Pack Progress Note Hot or Cold Pack Therapeutic Activities Neuromuscular Re-Ed Therapeutic Exercise Therapeutic Activities Neuromuscular Re-Ed Hot or Cold Pack Therapeutic Activities Hot or Cold Pack Therapeutic Exercise Neuromuscular Re-Ed Therapeutic Activities Neuromuscular Re-Ed Therapeutic Exercise Therapeutic Activities Neuromuscular Re-Ed Therapeutic Exercise Therapeutic Exercise Neuromuscular Re-Ed Therapeutic Activities Hot or Cold Pack Manual Therapy Neuromuscular Re-Ed Therapeutic Exercise Hot or Cold Pack Neuromuscular Re-Ed Manual Therapy Progress Note Therapeutic Exercise Hot or Cold Pack Therapeutic Activities Therapeutic Exercise Neuromuscular Re-Ed Neuromuscular Re-Ed Therapeutic Activities Hot or Cold Pack Therapeutic Exercise Manual Therapy Therapeutic Exercise Neuromuscular Re-Ed Manual Therapy Therapeutic Activities Hot or Cold Pack Neuromuscular Re-Ed Hot or Cold Pack Manual Therapy Therapeutic Exercise Therapeutic Activities Neuromuscular Re-Ed Manual Therapy Therapeutic Exercise Therapeutic Exercise Manual Therapy Neuromuscular Re-Ed Electrical Stimulation Hot or Cold Pack Therapeutic Activities Neuromuscular Re-Ed Therapeutic Exercise Manual Therapy Electrical Stimulation Hot or Cold Pack Progress Note Therapeutic Activities Neuromuscular Re-Ed Therapeutic Exercise Manual Therapy Neuromuscular Re-Ed Therapeutic Exercise Hot or Cold Pack Therapeutic Activities Therapeutic Exercise Neuromuscular Re-Ed Hot or Cold Pack Therapeutic Activities Hot or Cold Pack Therapeutic Exercise Electrical Stimulation Neuromuscular Re-Ed Neuromuscular Re-Ed Therapeutic Exercise Hot or Cold Pack Therapeutic Activities PT Re-evaluation Therapeutic Activities Therapeutic Exercise Hot or Cold Pack Neuromuscular Re-Ed Neuromuscular Re-Ed Therapeutic Activities Therapeutic Exercise Neuromuscular Re-Ed Therapeutic Activities Therapeutic Exercise Neuromuscular Re-Ed Therapeutic Activities Progress Note Therapeutic Exercise Therapeutic Activities Neuromuscular Re-Ed Therapeutic Exercise Neuromuscular Re-Ed Therapeutic Activities Therapeutic Exercise Neuromuscular Re-Ed Therapeutic Activities PT Evaluation Low Complexity Therapeutic Exercise Therapeutic Exercise Manual Therapy Therapeutic Exercise Therapeutic Activities Manual Therapy Hot or Cold Pack Therapeutic Exercise Therapeutic Activities Hot or Cold Pack Therapeutic Exercise Therapeutic Activities Manual Therapy Hot or Cold Pack PT Re-evaluation Therapeutic Exercise Therapeutic Activities Hot or Cold Pack Therapeutic Exercise Therapeutic Activities Hot or Cold Pack Therapeutic Exercise Therapeutic Activities Manual Therapy Hot or Cold Pack Electrical Stimulation Progress Note Therapeutic Exercise Therapeutic Activities Manual Therapy Hot or Cold Pack Electrical Stimulation Therapeutic Exercise Therapeutic Activities Manual Therapy Hot or Cold Pack Electrical Stimulation Therapeutic Exercise Manual Therapy Hot or Cold Pack Electrical Stimulation Mobility: Walking And Moving Limitations -Curent Mobility: Walking And Moving Limitation- Goal Therapeutic Exercise Manual Therapy Hot or Cold Pack Electrical Stimulation Mobility: Walking And Moving Limitations -Curent Mobility: Walking And Moving Limitation- Goal PT Evaluation Moderate Complexity Therapeutic Exercise Manual Therapy Hot or Cold Pack Mobility: Walking And Moving Limitations -Curent Mobility: Walking And Moving Limitation- Goal Advance Directives Directive Yes / No Effective Date File Name No Information Encounters Encounter Description Practice Location Reason(s) For Visit Diagnoses Date Provider Providers Copied on Encounter [facility] [address] [place] [address], [id number], tel:[phone] [place] No Information 2 Grabiel Florentino. . Referring Provider: George Sepulveda [address] [place] [address], [place], [place], [facility]. tel:[phone] [place] [address] [place] [address], [id number], tel:[phone] [place] No Information 2 Grabiel Florentino. . Referring Provider: George Sepulveda [address] [place] [address], [place], [address]. tel:[phone], [id number], tel:[phone] [place] No Information 0 2 Grabiel Florentino. . Referring Provider: George Sepulveda [address] [place] [address], [place], [address]. tel:[phone] [place] [address] [place] [address], [id number], tel:[phone] [place] No Information 3 2 Grabiel Florentino. . Referring Provider: George Sepulveda [address] [place] [address], [place], [facility]. tel:[phone], [place], [id number], tel:[phone] [place] No Information 0 2 Grabiel Florentino. . Referring Provider: George Sepulveda [address] [place] [address], [place], [address]. tel:[phone] [place] [address], [address] [facility] [address], [place], [place], [id number], tel:[phone] [place] No Information 3 2 Grabiel Florentino. . Referring Provider: George Sepulveda [address] [place] [address], [place], [address]. tel:[phone] [place] [address] [address] [facility] [address], [place], [place], [id number], tel:[phone] [place] No Information 2 Grabiel Florentino. . Referring Provider: George Sepulveda [address] [place] [address], [place], [address]. tel:[phone] [place] [address], [address] [facility], [place], [place], [id number], [place] tel:[phone] [place] No Information 2 Grabiel Florentino. . Referring Provider: George Sepulveda [address] [place] [address], [place], [address]. tel:[phone] [place] [address] [place] [address] 300, [place], [place], [id number], tel:[phone] [place] No Information 2 Grabiel Florentino. . Referring Provider: George Sepulveda [address] [place] [address], [place], [address]. tel:[phone] [place] [address] [address] [facility] [address], [place], [id number], [place] tel:[phone] [place] No Information 2 Grabiel Florentino. . Referring Provider: George Sepulveda [address] [place] [address], [place], [address]. tel:[phone] [place] [address] [place] [address] 300, [place], [place], [id number], tel:[phone] [place] No Information 2 Grabiel Traore . Referring Provider: George Sepulveda, [address] [place] [address] Suite [facility], [place], [facility]. tel:[phone] [place] [address] 300, [place], [id number], tel:[phone] [place] No Information 2 Muehl Harinder. [address] [place] [address], [address], [place], [facility], . tel:[phone] Referring Provider: Carol Aceves, [address] [place] [address], [place], [facility]. tel:[phone] [place] [address], [place], [place], [id number], tel:[phone] [place] No Information 2 Clarita Pizano. [address] [place] [address], [address], [place], [facility], . tel:[phone] Referring Provider: Carol Aceves, [address] [place] [address], [place], [facility]. tel:[phone] [place] [address], [place], [place], [id number], tel:[phone] [place] No Information 2 Denisa Parada. . Referring Provider: Carol Aceves, [address] [place] [address], [place], [facility]. tel:[phone] [place] [address], [place], [place], [id number], tel:[phone] [place] No Information 2 Denisa Parada. . Referring Provider: Carol Aceves, [address] [place] [address], [place], [facility]. tel:[phone] [place] [address], [place], [place], [id number], [place] tel:[phone] [place] No Information 0 2 Essner Tal. . Referring Provider: Luis Herman [address], [facility]. tel:[phone] [place] [address], [place], [place], [id number], tel:[phone] [place] No Information 0 2 Muehl Harinder. [address] [place] [address], [address] [address], . tel:[phone] Referring Provider: Luis Herman [facility] Suite [facility], [place], [facility]. tel:[phone] [place] [address], [id number], tel:[phone] [place] No Information 2 Muehl Harinder. [address] [place] [address], [address], [place], [facility], . tel:[phone] Referring Provider: Luis Herman [facility] [address] [place] [address], [facility]. tel:[phone] [place] [address], [id number], tel:[phone] [place] No Information 2 Muehl Harinder. [address] [place] [address], [address] [address], . tel:[phone] Referring Provider: Luis Herman [facility] [address] [place] [address], [facility]. tel:[phone], [id number], tel:[phone] [place] No Information 2 Muehl Harinder. [address] [place] [address], [facility] [address] [address], . tel:[phone] Referring Provider: Carol Claudia Yola, [address] [place] [address], [address]. tel:[phone] [place] [address] [place] [address], [id number], tel:[phone] [place] No Information 2 Essner Tal. . Referring Provider: Carol Aceves, [address] [place] [address], [place], [facility]. tel:[phone], [id number], tel:[phone] [place] No Information 2 Muehl Harinder. [address] [facility], [address], [place], [facility], . tel:[phone] Referring Provider: Carol Aceves, [address] [place] [address], [place], [facility]. tel:[phone] [place] [address], [id number], tel:[phone] [place] No Information 0 2 Muehl Harinder. [address] [place] [address], [address], [place], [facility], . tel:[phone] Referring Provider: Carol Aceves, [address] [place] [address] Suite [facility], [place], [address]. tel:[phone] [place] [address], [id number], tel:[phone] [place] No Information 2 Muehl Harinder. [address] [facility], [address], [place], [facility], . tel:[phone] Referring Provider: Carol Aceves, [address] [place] [address], [place], [facility]. tel:[phone], [id number], tel:[phone] [place] No Information 2 Modglin Tre. . Referring Provider: Carol Aceves, [address] [place] [address] Suite [facility], [place], [address]. tel:[phone] [place] [address], [place], [place], [id number], tel:[phone] [place] No Information 2 Niederhoffer Fernanda. . Referring Provider: Carol Aceves, [address] [place] [address] Suite [facility], [place], [address]. tel:[phone] [place] [address], [place], [place], [id number], [place] tel:[phone] [place] No Information 2 Niederhoffer Fernanda. . Referring Provider: Carol Aceves, [address] [place] [address], [place], [facility]. tel:[phone] [place] [address], [place], [place], [id number], [place] tel:[phone] [place] No Information 2 Niederhoffer Fernanda. . Referring Provider: Carol Aceves, [address] [place] [address], [place], [facility]. tel:[phone] [place] [address], [place], [id number], [place] tel:[phone] [place] No Information 0 2 Yuval Foote. [address] [place] [address], [facility] [address], [place], [facility], [place]. tel:[phone] Referring Provider: Carol Aceves, [address] [place] [address] Suite [facility], [place], [address]. tel:[phone] [place] [address], [place], [place], [id number], [place] tel:[phone] [place] No Information 0 2 Clarita Pizano. [address] [place] [address], [address], [place], [facility], [place]. tel:[phone] Referring Provider: Carol Aceves, [address] [facility] Suite [facility], [place], [address]. tel:[phone], [place], [place], [id number], tel:[phone] [place] No Information Mar-3 0-202 2 Muehl Harinder. [address] [place] [address], [address], [facility], . tel:[phone] Referring Provider: Carol Aceves, [address] [facility] Suite [facility], [place], [address]. tel:[phone] [address], [place], [place], [id number], tel:[phone] [place] No Information Mar-2 8-202 2 Muehl Harinder. [address] [place] [address], [address], [facility], . tel:[phone] Referring Provider: Carol Aceves, [address] [facility] Suite [facility], [place], [address]. tel:[phone], [place], [place], [id number], tel:[phone] [place] No Information Mar-2 4-202 2 Muehl Harinder. [address] [place] [address], [address], [facility], . tel:[phone] Referring Provider: Carol Aceves, [address] [facility] [address] [place] [address], [address]. tel:[phone], [place], [id number], tel:[phone] [place] No Information Mar-2 2-202 2 Muehl Harinder. [address] [place] [address], [address], [facility], . tel:[phone] Referring Provider: Carol Aceves, [address] [facility] Suite [facility], [place], [facility]. tel:[phone] [place] [address], [place], [place], [id number], tel:[phone] [place] No Information Mar-1 6-202 2 Muehl Harinder. [address] [place] [address], [address], [facility], . tel:[phone] Referring Provider: Carol Aceves, [address] [place] [address], [facility]. tel:[phone] [place] [address], [place], [place], [id number], tel:[phone] [place] No Information Mar-1 5-202 2 Muehl Harinder. [address] [place] [address], [address], [place], [facility], . tel:[phone] Referring Provider: Carol Aceves, [address] [place] [address], [facility]. tel:[phone] [place] [address], [id number], tel:[phone] [place] No Information Mar-1 1-202 2 Muehl Harinder. [address] [place] [address], [address], [facility], . tel:[phone] Referring Provider: Carol Aceves, [address] [place] [address], [address]. tel:[phone] [place] [address], [id number], tel:[phone] [facility] No Information Mar-0 4-202 2 Makler Luke. . Referring Provider: George Sepulveda [address] [place] [address], [place], [address]. tel:[phone] [place] [address] [place] [address], [place], [place], [id number], tel:[phone] [facility] No Information Mar-0 3-202 2 Makler Luke. . Referring Provider: George Sepulveda [address] [place] [address] [place], [address]. tel:[phone] [place] [address], [address] [place] [address], [place], [place], [id number], [place] tel:[phone] [facility] No Information Feb-2 2 Makler Luke. . Referring Provider: George Sepulveda, [address] [place] [address], [place], [address]. tel:[phone] [place] [address], [address] [place] [address] 300, [place], [place], [id number], [place] tel:[phone] [facility] No Information Feb-2 2 Makler Luke. . Referring Provider: George Sepulveda [address] [place] [address], [place], [address]. tel:[phone] [place] [address], [address] [place] [address], [place], [place], [id number], tel:[phone] [facility] No Information Feb-2 2 Makler Luke. . Referring Provider: George Sepulveda [address] [place] [address], [place], [address]. tel:[phone] [place] [address] [place] [address], [place], [place], [id number], [place] tel:[phone] [facility] No Information Feb-2 2 Makler Luke. . Referring Provider: George Sepulveda [address] [place] [address], [place], [address]. tel:[phone] [place] [address], [address] [facility] 300, [place], [place], [id number], [place] tel:[phone] [place] Pain in right kneeEffusion, right kneeMuscle weakness (generalized) Stiffness of right knee, not elsewhere classifiedUns pecified abnormalities of gait and mobility 9 [facility] Harinder. [address] [facility], [address], [place], [facility], [place]. tel:[phone] Referring Provider: Jossie Montalvo, [address] [place] [address], [place], [address]. tel:[phone] [facility] [address] [facility] [address], [place], [place], [id number], tel:[phone] [place] Pain in right kneeEffusion, right kneeMuscle weakness (generalized) Stiffness of right knee, not elsewhere classifiedUns pecified abnormalities of gait and mobility Feb-1 5-201 9 Muehl Harinder. [address] [place] [address], [address], [place], [facility], . tel:[phone] Referring Provider: Jossie Montalvo, [address] [facility] [address], [place], [address]. tel:[phone] [facility] [address], [place], [place], [id number], [place] tel:[phone] [place] Pain in right kneeEffusion, right kneeMuscle weakness (generalized) Stiffness of right knee, not elsewhere classifiedUns pecified abnormalities of gait and mobility Feb-1 2-201 9 [place] Jacquie. . Referring Provider: Jossie Montalvo, [address] [facility] [address], [place], [address]. tel:[phone] [facility] [address], [place], [place], [id number], [place] tel:[phone] [place] Pain in right kneeEffusion, right kneeMuscle weakness (generalized) Stiffness of right knee, not elsewhere classifiedUns pecified abnormalities of gait and mobility Feb-0 7-201 9 Muehl Harinder. [address] [place] [address], [address], [place], [facility], [place]. tel:[phone] Referring Provider: Jossie Montalvo, [address] [facility] [address], [place], [address]. tel:[phone] [facility] [address] [facility] [address], [place], [place], [id number], [place] tel:[phone] [place] Pain in right kneeEffusion, right kneeMuscle weakness (generalized) Stiffness of right knee, not elsewhere classifiedUns pecified abnormalities of gait and mobility Feb-0 5-201 9 Muehl Harinder. [address] [facility], [address], [place], [address], [place]. tel:[phone] Referring Provider: Jossie Montalvo, [address] [facility] [address], [place], [address]. tel:[phone] [facility] [address], [place], [place], [id number], [place] tel:[phone] [place] Pain in right kneeEffusion, right kneeMuscle weakness (generalized) Stiffness of right knee, not elsewhere classifiedUns pecified abnormalities of gait and mobility 9 Clarita Pizano. [address] [facility], [address], [place], [address], [place]. tel:[phone] Referring Provider: Jossie Montalvo, [address] [facility] [address], [place], [address]. tel:[phone] [facility] [address] [place], [place] [address], [place], [place], [id number], [place] tel:[phone] [place] Pain in right kneeEffusion, right kneeMuscle weakness (generalized) Stiffness of right knee, not elsewhere classifiedUns pecified abnormalities of gait and mobility 9 Thadosiel Pizano. [address] [facility], [address], [place], [address], [place]. tel:[phone] Referring Provider: Jossie Montalvo, [address] [facility] [address], [place], [address]. tel:[phone] [facility] [address] [facility] [address], [place], [place], [id number], [place] tel:[phone] [place] Pain in right kneeEffusion, right kneeMuscle weakness (generalized) Stiffness of right knee, not elsewhere classifiedUns pecified abnormalities of gait and mobility 9 Clarita Pizano. [address] [facility], [address], [place], [address], [place]. tel:[phone] Referring Provider: Jossie Montalvo, [address] [facility] [address], [place], [address]. tel:[phone] [facility], [place], [place], [id number], [place] tel:[phone] [place] Pain in right kneeEffusion, right kneeMuscle weakness (generalized) Stiffness of right knee, not elsewhere classifiedUns pecified abnormalities of gait and mobility Dec-2 8 8 Muehl Harinder. [address] [facility], [address], [place], [facility], [place]. tel:[phone] Referring Provider: Jossie Montalvo, [address] [facility] [address], [place], [address]. tel:[phone] [facility], [address] [place], [place] [address], [place], [place], [id number], [place] tel:[phone] [place] Pain in right kneeEffusion, right kneeMuscle weakness (generalized) Stiffness of right knee, not elsewhere classifiedUns pecified abnormalities of gait and mobility Dec-2 8 Maddie Chavez . Referring Provider: Jossie Montalvo, [address] [facility] [address], [place], [address]. tel:[phone] [facility] [address], [place], [place], [id number], [place] tel:[phone] [place] Pain in right kneeEffusion, right kneeMuscle weakness (generalized) Stiffness of right knee, not elsewhere classifiedUns pecified abnormalities of gait and mobility Dec-2 8 Muehl Harinder. [address] [facility], [address], [place], [address], [place]. tel:[phone] Referring Provider: Jossie Montalvo, [address] [facility] [address], [place], [address]. tel:[phone] [facility] [address], [place], [place], [id number], [place] tel:[phone] [place] Pain in right kneeEffusion, right kneeMuscle weakness (generalized) Stiffness of right knee, not elsewhere classifiedUns pecified abnormalities of gait and mobility Dec-2 0 8 Muehl Harinder. [address] [facility], [address], [place], [address], [place]. tel:[phone] Referring Provider: Jossie Montalvo, [address], [place], [address]. tel:[phone] Family History Family Member Type Diagnosis Age At Onset No Information Payers Payer name Insurance type Covered libertarian ID [facility]ordon johnson([facility] [id number] [employer] CI [id number] Social History Type Description Quantity Date Captured Comments Sex Male Smoking Status No Information Chief Complaint And Reason For Visit No Information Reason For Referral Reason For Referral No Information History Of Present Illness Encounter Date Complaint History Of Prese nt Illness No Information Functional Status Date Functional Assessmen t No Information Instructions Date Instruction Additional Infor mation Prescribed activity/exercise edu cation Related to Overweight Prescribed activity/exercise edu cation Related to Overweight Dietary needs education Related to Overweight Dietary needs education Related to Overweight Giving encouragement to exercise Related to Overweight Giving encouragement to exercise Related to Overweight Assessments Type Assessment Date No Information Patient Care Teams Name Effective Dates (start - stop) Status Members No Information
--- OUTSIDE RECORDS SUMMARY | 2024-10-11 02:16 | XMS_ITS | Continuity of Care Document ---
Author Organization [facility] Address [address] [place] [address] Phone Care Team Providers Care International Sales Representative Name Role Phone Caio ADKINS, Jhonny Unavailable Unavailable Landon RN, Nguyen Unavailable Unavailable Procedures Procedure Date Voided Encounter Coronavirus AG [place] (Rapid Test) 20 Voided Encounter Advance Directives Directive Yes / No Effective Date File Name No Information Encounters Encounter Description Practice Location Reason(s) For Visit Diagnoses Date Provider Providers Copied on Encounter [facility] , [address], [place], [place], [id number], tel:[phone] [facility] No Information Caio Barry. [address] [place] [address], [id number], . tel:[phone] Consulting Provider: Nguyen Navarrete, [address], [place], [address]. tel:[phone] [facility] , [address], [place], [place], [address], tel:[phone] [facility] No Information Sindel Linette. [address], [place], [place], [id number], . tel:[phone] [facility] , [address], [place], [place], [id number], tel:[phone] [facility] Contact w and exposure to oth viral communicable diseases Caio Barry. [address] [place] [address], [id number], . tel:[phone] [facility] , [address], [place], [place], [id number], tel:[phone] [facility] No Information Mathew Wilkinson. [address], [place], [place], [id number], . tel:[phone] Family History Family Member Type Diagnosis Age [...]
--- OUTSIDE RECORDS SUMMARY | 2024-10-11 02:58 | XMS_ITS | Encounter Summary ---
Author Organization [facility] Address [address] [place] [address] Care Team Providers Care Web Worker Name Role Phone Wolfgang Serrano MD Primary Care Provider Unknown, Notinfile Unavailable Unavailable Santino Funk MD Unavailable Chuy Enriquez MD Unavailable Luis Felipe Cedillo MD Unavailable [phone] Marlene Thornton MD Unavailable [phone] Encounter Details Date Type Department Care Team (Late st Contact Info) Description 07/17/2024 Documentation [facility] Pre Anesthesia Testing [address] [place] [address] Madie Trujillo RN Social History [...] materials from doctor or pharmacy Sometimes 03/08/2024 [facility] Utilities Answer Date Recorded In the past [...] 0 01/06/2024 [facility] ional [facility] - Occupational Stress [...] on file Legal Sex Male 3:25 PM [employer] Gender Identity Not on file Sexual Orientation Not on file documented as of this encounter Miscellaneous Notes * Perioperative Nursing Note - Madie Trujillo RN - 07/17/2024 2:20 PM CDT Images from the original note were not included. Epic message received today: Carol Aceves PA Pruitt, Jennifer Marie, MARAH Attempted to call patient. His voicemail is full. I sent a message through his [employer] regarding his antibiotics but I have called into his pharmacy. Hopefully, he will get this started today. Thanks documented in this encounter Plan of Treatment Upcoming Encounters Date Type Department Care Team (Latest Contact Info) Description 10/23/2024 10:00 AM [facility] Hospital Encounter [facility] Operating Room [address] [place] [address] [place] [address] [facility] [address] [place] [address] 10/23/2024 10:00 AM [facility] - 10/23/2024 1:00 PM [facility] Surgery [facility] Operating Room [address] [place] [address] [place] [address] [facility] [address] [place] [address] ARTHROPLASTY TOTAL KNEE LEFT Scheduled Procedures Name Priority Associated Diagnoses Date/Ti me ARTHROPLASTY TOTAL KNEE left knee osteoarthritis 10/23/2024 10:00 AM [employer] ESOPHAGOGASTRODUODENOSCOPY Dysphagia, unspecified type documented as of this encounter Visit Diagnoses Not on filedocumented in this encounter Care Teams Web Worker Relationship Specialty Start Date End Date Wolfgang Serrano MD PCP - General Family Medicine 05/05/23 08/02/24 Unknown, Notinfile 03/12/22 [place] [address] [facility] [address] [place] [address] 03/12/22 Chuy Enriquez MD [address] [facility] [address] [place] [address] Consulting Physician Pulmonary Disease 10/13/23 Luis Felipe Cedillo MD [address] [facility] [address] [place] [address] Consulting Physician Gastroenterology 10/13/23 Marlene Thornton MD [address] [facility] [address] [place] [address] Surgeon Vascular Surgery 11/10/23 documented as of this encounter
--- OUTSIDE RECORDS SUMMARY | 2024-10-11 02:58 | XMS_ITS | Referral Summary ---
Author Organization [facility] Address [address] [place] [address] Care Team Providers Care Hearing Therapist Name Role Phone Wolfgang Serrano MD Primary Care Provider [phone] Wolfgang Serrano MD Unavailable [phone] Unknown, Notinfile Unavailable Unavailable Santino Funk MD Unavailable [phone] Chuy Enriquez MD Unavailable [phone] Luis Felipe Cedillo MD Unavailable Marlene Thornton MD Unavailable Encounters Date Type Department Care Team Description 10/09/2024 Telephone [facility] Gastroenterology [address] [facility] [address], [address] [place] [address] Jenni Eddy, MARAH Unsuccessful Phone Call 1; GI Preprocedure 10/06/2024 12:10 PM GEOLOGICAL DRAFTER Lab [address] [place] [address] Primary osteoarthritis of left knee 10/05/2024 9:00 AM GEOLOGICAL DRAFTER Office Visit [facility] Orthopedics and Sports Medicine at [address] [place] [address] Grey Dykes MD Primary osteoarthritis of left knee (Primary Dx) 08/30/2024 Telephone [facility] [address] [facility] [address], [address] [place] [phone] Laly Shi RN [facility] Intake Assessment 08/29/2024 8:30 AM GEOLOGICAL DRAFTER - 08/29/2024 11:59 PM GEOLOGICAL DRAFTER Hospital Encounter [facility] Radiology [address] [facility] [address] [place] [address] Left knee pain, unspecified chronicity; Acute knee pain, unspecified laterality Discharge Disposition: Discharge to home or self care 08/29/2024 9:00 AM GEOLOGICAL DRAFTER Office Visit [facility] Orthopaedic Surgery [address] [facility] Medical Office [address] [place] [phone] Judah Celaya MD Primary osteoarthritis of left knee (Primary Dx); Acute knee pain, unspecified laterality; Left knee pain, unspecified chronicity 07/26/2024 Telephone [facility] Orthopedics and Sports Medicine at [address] [phone] Grey Dykes MD 07/24/2024 8:33 AM CDT - 07/24/2024 9:31 AM CDT Hospital Encounter [facility] Operating Room [address] [place] [address] Grey Dykes MD Discharge Disposition: Discharge to home or self care 07/17/2024 Documentation [facility] Pre Anesthesia Testing [address] [place] [address] Madie Trujillo RN 07/17/2024 Orders Only [facility] Orthopedics and Sports Medicine at [address] [phone] Carol Aceves PA 07/14/2024 Documentation [facility] Pre Anesthesia Testing [address] [place] [address] Madie Trujillo RN 07/12/2024 8:00 AM CDT Office Visit [facility] Stroke [address] [facility] [address] [place] [address] Gomez Reddy MD Cerebrovascular accident (CVA), unspecified mechanism (HCC) 07/11/2024 10:45 AM CDT Pre-Admission Testing [facility] Pre Anesthesia Testing [address] [place] [address] Pre-op testing (Primary Dx); Arthritis of left [...] 06/22/2024 Assessment & Plan (10/05/2024 9:45 AM GEOLOGICAL DRAFTER): The patient has advanced arthritis of the [...] as late effect of cerebrovascular accident (CVA) ([facility]) 03/21/2024 Arthritis of left knee 12/29/2023 [...] 2025 Assessment & Plan (11/18/2023 2:34 PM GEOLOGICAL DRAFTER): RLL nodule in a patient without clear [...] maintenance/vaccinations Assessment & Plan (11/18/2023 2:34 PM GEOLOGICAL DRAFTER): Related to hiatal hernia, reflux Sx are [...] (12/05/2019): Added automatically from request for surgery [id number] Subchondral insufficiency fracture of condyle of left [...] doctor or pharmacy Sometimes 03/08/2024 [facility] Utilities Answer Date Recorded In the past 12 months has e [employer], [employer], oil, or water [employer] threatened to shut off services in your [...] week 12/16/2023 How often do you attend [facility] or synagogue services? More than 4 times per year 12/16/2023 Do you belong to any clubs o r organizations such as taoism groups, unions, fraternal or athletic groups, or [...] Patient Health Questionnaire-2 Score 0 01/06/2024 [facility] Occupat ional [facility] - Occupational Stress Questionnaire Answer Date Recorded [...] on file Legal Sex Male 3:25 PM GEOLOGICAL DRAFTER Gender Identity Not on file Sexual Orientation [...] 85.3 kg (188 lb) 10/05/2024 9:24 AM GEOLOGICAL DRAFTER Height 177.8 cm (5' 10 ) 10/05/2024 9:24 AM GEOLOGICAL DRAFTER Body Mass Index 26.98 10/05/2024 9:24 AM GEOLOGICAL DRAFTER Plan of Treatment Upcoming Encounters Date Type Department Care Team (Latest Contact Info) Description 10/23/2024 10:00 AM GEOLOGICAL DRAFTER Hospital Encounter [facility] Operating Room [address] [place] [address] [place] [id number] [address] 10/23/2024 10:00 AM GEOLOGICAL DRAFTER - 10/23/2024 1:00 PM GEOLOGICAL DRAFTER Surgery [facility] Operating Room [address] [place] [address] [place] [address] [address] ARTHROPLASTY TOTAL KNEE LEFT Scheduled Procedures Name Priority Associated Diagnoses Date/Ti me ARTHROPLASTY TOTAL KNEE left knee osteoarthritis 10/23/2024 10:00 AM GEOLOGICAL DRAFTER ESOPHAGOGASTRODUODENOSCOPY Dysphagia, unspecified type Medical Devices Implanted Type Area Automatic Coin Machine Mechanic Device Identifier Shelf Expiration Date Model / Serial / Lot [employer] 201.050 Nif - [id number] Implanted:Qty: 1 on 09/22/2018 by George Sepulveda MD at [facility] al: Knee [employer] 04/09/2020 201.050 / / [id number] Subchondroplasty Knee Kit Implanted:Qty: 1 on 09/22/2018 by George Sepulveda MD at [facility] al: Knee [employer] 11/10/2020 402.203(201.0 50) / [id number] / [id number] Description:KIT CONTAINS IMP LANT: ACCUFILL, 5ML, REF# 201.050, LOT # [id number], EX: 11-10-2020 System Accumix Bone Cement - [id number] Implanted:Qty: 1 on 09/22/2018 by George Sepulveda MD at [facility] [employer] 03/28/2021 311.100 / / [id number] [employer] [id number] Palacos R+G High Viscosity Cement Bone Gentamicin Arthroplasty - [id number] Implanted:Qty: 1 on 11/24/2021 by George Sepulveda MD at [facility] Right: Knee [employer] 05/10/2024 [id number] / / [id number] [employer] [id number] Persona Cruciate Retain Knee Right 11 Narrow Component Femoral - [id number] Implanted:Qty: 1 on 11/24/2021 by George Sepulveda MD at [facility] Right: Knee [employer] 07/13/2030 [id number] / / [id number] [employer] [id number] Persona 35mm Knee Component Patellar All Poly Latex Free - [id number] Implanted:Qty: 1 on 11/24/2021 by George Sepulveda MD at [facility] Right: Knee [employer] 03/25/2029 [id number] / / [id number] [employer] [id number] Persona 14mm 30+ Mm Knee Tibia Taper Extension Stem - [id number] Implanted:Qty: 1 on 11/24/2021 by George Sepulveda MD at [facility] Right: Knee [employer] 07/27/2031 [id number] / / [id number] Jim [employer] [id number] Persona Natural Tibia Stem Knee Right 5d G Baseplate Tibial - [id number] Implanted:Qty: 1 on 11/24/2021 by George Sepulveda MD at [facility] Right: Knee [employer] 05/13/2031 [id number] / / [id number] [employer] [id number] Persona 10mm Knee Insert Articular Vivacit-E Sterile - [id number] Implanted:Qty: 1 on 11/24/2021 by George Sepulveda MD at [facility] Right: Knee [employer] 05/06/2026 [id number] / / [id number] Procedures Procedure Name Priority Date/Time Associated Diagnosis Comments URINALYSIS, MICROSCOPIC ONLY Routine 10/06/2024 12:12 PM GEOLOGICAL DRAFTER Primary osteoarthritis of left knee PROTEIN, TOTAL Routine 10/06/2024 12:12 PM GEOLOGICAL DRAFTER Primary osteoarthritis of left knee URINALYSIS AND REFLEX TO MICROSCOPIC AND CULTURE Routine 10/06/2024 12:12 PM GEOLOGICAL DRAFTER Primary osteoarthritis of left knee XR PELVIS 1 OR 2 VIEWS Schedule Routine, Read Routine (OP Routine) 08/29/2024 9:28 AM GEOLOGICAL DRAFTER Acute knee pain, unspecified laterality XR KNEE LEFT 4 OR MORE VIEWS Schedule Routine, Read Routine (OP Routine) 08/29/2024 9:28 AM GEOLOGICAL DRAFTER Left knee pain, unspecified chronicity URINALYSIS, MICROSCOPIC [...] CONTRAST ED Urgent/IP Urgent 10/11/2023 10:12 AM GEOLOGICAL DRAFTER from Last 3 Months or Most Recently Relevant to Health Maintenance Results * (ABNORMAL) Urinalysis reflex to microscopic and culture Urine, clean voided (10/06/2024 12:12 PM GEOLOGICAL DRAFTER) Color, ur Yellow Yellow Clarity, ur Clear [...] tendency for uric acid stone formation. Source: [facility] Current Interpretive Data was last revised on [...] CERNER Urine, clean voided 10/06/2024 12:12 PM GEOLOGICAL DRAFTER 10/06/2024 8:10 PM GEOLOGICAL DRAFTER Grey Dykes MD LAB MICROBIOLOGY - GENERAL ORDERABLES Final Result Performing Organization Address [facility] Co de Phone Number ANYDEE FISHER [address] [place], [place] [phone] * (ABNORMAL) Urinalysis, microscopic only (10/06/2024 12:12 PM GEOLOGICAL DRAFTER) WBC, ur 0-5 0 - 5 /HPF RBC, ur 3-5(A) 0 - 2 /HPF CERNER Mucous, ur Present(A) CERNER Calcium oxalate crystals, ur Trace(A) CERNER CH Culture Reflex Comment Reflex conditions for urine culture (WBC >10) not met. [facility] Urine, clean voided 10/06/2024 12:12 PM GEOLOGICAL DRAFTER 10/06/2024 8:12 PM GEOLOGICAL DRAFTER Grey Dykes MD LAB URINE ORDERABLES Final Result Performing Organization Address [facility] de Phone Number MARVIN PHILLIP [address] [place] [address] * (ABNORMAL) Protein, total (10/06/2024 12:12 PM GEOLOGICAL DRAFTER) Protein, pl 6.4(L) 6.5 - 8.5 g/dL Blood 10/06/2024 12:1 2 PM GEOLOGICAL DRAFTER 10/06/2024 8:10 PM GEOLOGICAL DRAFTER Grey Dykes MD LAB BLOOD ORDERABLES Final Result Performing Organization Address [facility] Co de Phone Number MARVIN PHILLIP [address] [place], [place] [phone] * XR Pelvis 1 or 2 Views (08/29/2024 9:28 AM GEOLOGICAL DRAFTER) Anatomical Region Laterality Modality Body, Pelvis N/A Computed Radiogr aphy 08/29/2024 11:0 7 AM GEOLOGICAL DRAFTER Impressions 08/29/2024 11:10 AM GEOLOGICAL DRAFTER 1. 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 2. ??Mild bilateral hip osteoarthritis. Dictated by: Ap Mcgregor M.D. The radiology attending physician has personally reviewed this study, and had reviewed and/or edited this written report and agrees with it. Electronically signed by: Errol Parnell M.D. Narrative 08/29/2024 11:10 AM GEOLOGICAL DRAFTER EXAMINATION: XR KNEE LEFT 4 OR MORE [...] 4 or More Views (08/29/2024 9:28 AM GEOLOGICAL DRAFTER) Anatomical Region Laterality Modality Lower Extremities, Knee Left Computed Radiography 08/29/2024 11:0 7 AM GEOLOGICAL DRAFTER Impressions 08/29/2024 11:10 AM GEOLOGICAL DRAFTER 1. 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 2. ??Mild bilateral hip osteoarthritis. Dictated by: Ap Mcgregor M.D. The radiology attending physician has personally reviewed this study, and had reviewed and/or edited this written report and agrees with it. Electronically signed by: Errol Parnell M.D. Narrative 08/29/2024 11:10 AM GEOLOGICAL DRAFTER EXAMINATION: XR KNEE LEFT 4 OR MORE [...] BLOOD ORDERABLES Final Res ult MARVIN FISHER [address] [place] [address] * (ABNORMAL) Urinalysis reflex to microscopic and [...] tendency for uric acid stone formation. Source: [facility] [place] Current Interpretive Data was last revised on [...] GENERAL ORD ERABLES Final Result ANYDEE PHILLIP [address] [place] [address] * Vitamin D 25 hydroxy (07/11/2024 11:07 AM CDT) Vitamin D 25-OH 56 30 - 80 ng/mL Blood 07/11/2024 11:0 7 AM CDT 07/11/2024 12:07 PM CDT us Grey Dykes MD LAB BLOOD ORDERABLES Final Result Performing Organization Address [facility] Co de Phone Number MARVIN FISHER [address] [place] [address] * (ABNORMAL) Urinalysis, microscopic only (07/11/2024 11:07 AM CDT) WBC, ur 21-50(A) 0 - 5 /HPF RBC, ur 3-5(A) 0 - 2 /HPF CERNER Epithelial cells, squamous, ur 1-5 0 - 5 /HPF CERNER CH Mucous, ur Present(A) CERNER CH Calcium oxalate crystals, ur 3+(A) CERNER CH Hyaline casts, ur 1-5 0 - 10 /LPF [facility] Culture Reflex Comment Reflex to urine culture will be performed. [facility] Urine, clean voided 07/11/2024 11:07 AM CDT 07/12/2024 1:49 PM CDT Kavitha Ramirez NP LAB URINE ORDERABLES Final Res ult Performing Organization Address [facility] Co de Phone Number MARVIN FISHER [address] [place] [address] * Type and screen (07/11/2024 11:07 AM CDT) Sarah, indirect Negative ABO Rh O Negative [facility] Blood 07/11/2024 11:0 7 AM CDT 07/11/2024 12:06 PM CDT Narrative [facility] - 07/11/2024 12:49 PM CDT Is this test being ordered in advance for a procedure?->Yes Expected date of procedure:->07/24/24 Has the patient been transfused in the past 3 months?->Unknown Kavitha Ramirez NP LAB BLOOD BANK TEST ORDERABLES Final Result Performing Organization Address [facility]/ZIP Co de Phone Number MARVIN [address] [place] [address] * Urine culture Urine, clean voided (07/11/2024 11:07 AM CDT) Report Final Report: Less than 100,000 colonies/mL (clinically insignificant growth based on current clinical standards) Comment:Testing performed by : [facility], [address] [place]., [address] Organism (CLINICALLY INSIGNIFICANT GROWTH MARVIN Urine, clean voided 07/11/2024 11:07 AM CDT 07/12/2024 6:55 PM CDT Narrative MARVIN - 07/14/2024 9:46 AM CDT Urine culture reflexed based upon urinalysis results. Testing performed by [facility] Microbiology Laboratory ([phone]) Kavitha Ramirez NP LAB MICROBIOLOGY - GENERAL ORD ERABLES Final Result Performing Organization Address [facility] Co de Phone Number MARVIN [address] [place] [address] * Protein, total (07/11/2024 11:07 AM CDT) Pathologist [facility] Protein, pl 6.7 6.5 - 8.5 g/dL Blood 07/11/2024 11:0 7 AM CDT 07/11/2024 12:07 PM CDT us Grey Dykes MD LAB BLOOD ORDERABLES Final Result Performing Organization Address [facility] Co de Phone Number MARVIN [address] [place] [address] * (ABNORMAL) Hemoglobin A1c (07/11/2024 11:07 AM CDT) Pathologist [facility] Hgb A1C 6.1(H) 4.0 - 5.6 % Estimated Average Glucose 128 mg/dL MARVIN Comment: The ADA recommends reporting an estimated Average Glucose (eAG) with all Hemoglobin A1c results using the equation derived from a study of 507 normal and diabetic adults. ??Minority populations were underrepresented and children were not included. ?? (Diabetes Care 31:5934-3791, 2008). ??The eAG is not equivalent to a fasting glucose. Blood 07/11/2024 11:0 7 AM CDT 07/11/2024 12:06 PM CDT Grey Dykes MD LAB BLOOD ORDERABLES Final Result Performing Organization Address City/[facility]/ZIP Co de Phone Number MARVIN [address] [place], [place] [phone] * Albumin (07/11/2024 11:07 AM CDT) Albumin 3.6 3.5 - 5.0 g/dL Blood 07/11/2024 11:0 7 AM CDT 07/11/2024 12:07 PM CDT Grey Dykes MD LAB BLOOD ORDERABLES Final Result Performing Organization Address [facility] Co de Phone Number MARVIN [address] [address] [place] [address] * Basic metabolic panel (07/11/2024 11:07 AM CDT) Sodium 141 135 - 145 mmol/L Potassium, pl 3.7 3.3 - 4.9 mmol/L [facility] Chloride 106 97 - 110 mmol/L [facility] CO2 22 22 - 32 mmol/L [facility] Anion gap 13 2 - 15 mmol/L [facility] BUN 9 6 - 25 mg/dL [facility] Creatinine 1.09 0.80 - 1.30 mg/dL [facility] Glucose 140 70 - 199 mg/dL [facility] Comment: Interpretive Data Fasting glucose >/= 126 [...] BLOOD ORDERABLES Final Res ult MARVIN FISHER [address] [place] [address] * CT Chest Abdomen Pelvis W Contrast (10/11/2023 10:12 AM GEOLOGICAL DRAFTER) Anatomical Region Laterality Modality Body N/A Computed Tomogra phy 10/11/2023 11:0 3 AM GEOLOGICAL DRAFTER Impressions 10/11/2023 11:03 AM GEOLOGICAL DRAFTER A 12 x 12 mm pulmonary nodule in the lateral aspect of the right costophrenic sulcus, new since 2019, is suspicious for primary lung malignancy. Electronically signed by: Jayshree Giles MD, Ph.D Narrative 10/11/2023 11:03 AM GEOLOGICAL DRAFTER EXAMINATION: ??Computed tomography of chest/abdomen/pelvis with intravenous [...] by: Jayshree Giles MD, Ph.D Taylor Bland CERTIFIED WELDING INSPECTOR IMG CT PROCEDURES Final Result from Last 3 Months or Most Recently Relevant to Health Maintenance Insurance [employer]ICE MEDICARE PPO [employer] OOS MEDICARE [place] [place] [address] [employer] CHOICE MEDICARE PPO IDPA [facility] [place] [address] [place] [place] [address] [place] [place] [address] [place] [place] [address] Advance Directives For more information, please contact: [phone] Documents on File Type Date Recorded 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 [employer]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 Expl 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 ADVANCE DIRECTIVE 01/10/2024 3:33 PM LIVING WILL ADVANCE DIRECTIVE 01/10/2024 3:33 PM POWER OF AGENCY SALES REPRESENTATIVE-MEDICAL * Full Code (Latest Code Status on [...] 5:17 PM 12/30/2019 5:42 PM Care Teams Hearing Therapist Relationship Specialty Start Date End Date Wolfgang Serrano MD [address] [place] [address] PCP - General Family Medicine 08/03/24 Wolfgang Serrano MD [address] [place] [address] Family Medicine 08/03/24 Unknown, Notinfile 03/12/22 [place] [address] [facility] [address] [place] [address] 03/12/22 Chuy Enriquez MD [address] [facility] [address] [place] [address] Consulting Physician Pulmonary Disease 10/13/23 Luis Felipe Cedillo MD [address] [facility] [address] [place] [address] Consulting Physician Gastroenterology 10/13/23 Marlene Thornton MD [address] [address] Surgeon Vascular Surgery 11/10/23
--- OUTSIDE RECORDS SUMMARY | 2024-10-11 02:58 | XMS_ITS | Continuity of Care Document ---
Author Organization [facility] Address [address] [place] [address] Phone Care Team Providers Care Poultry Hatchery Man Name Role Phone Caio ADKINS, Jhonny Unavailable Unavailable Landon RN, Nguyen Unavailable Unavailable Procedures Procedure Date Voided Encounter Coronavirus AG IA (Rapid Test) 20 Voided Encounter Advance Directives Directive Yes / No Effective Date File Name No Information Encounters Encounter Description Practice Location Reason(s) For Visit Diagnoses Date Provider Providers Copied on Encounter [facility] , [address], [place], [place], [id number], tel:[phone] [place] [facility] [place] No Information Caio Barry. [address] [place] [address], [id number], . tel:[phone] Consulting Provider: Nguyen Navarrete, [address], [place], [address]. tel:[phone] [facility] , [address], [place], [place], [id number], tel:[phone] [facility] [place] No Information Sindel Linette. [address], [place], [place], [id number], . tel:[phone] [facility] , [address], [place], [place], [address], tel:[phone] [facility] Contact w and exposure to oth viral communicable diseases Caio Barry. [address] [place] [address], [id number], . tel:[phone] [facility] , [address], [place], [place], [address], tel:[phone] [facility] [place] No Information Mathew Wilkinson. [address], [place], [place], [address], . tel:[phone] Family History Family Member Type Diagnosis Age At Onset No Information Payers Payer name Insurance type Covered democrat ID Authoriza tion(s) No Information Social History [...]
--- OUTSIDE RECORDS SUMMARY | 2024-10-11 02:58 | XMS_ITS | Encounter Summary ---
Author Organization [facility] Healthcare Address [address] [place] [address] Care Team Providers Care Console Attendant Name Role Phone Wolfgang Serrano MD Primary Care Provider Unknown, Notinfile Unavailable Unavailable Santino Funk MD Unavailable Chuy Enriquez MD Unavailable Luis Felipe Cedillo MD Unavailable Marlene Thornton MD Unavailable [phone] Reason for Referral * Consultation (Routine) - Closed Specialty Diagnoses / Procedures Referred By Contac t Referred To Contact Physical Therapy Diagnoses [place] [id number] [address] Phone: tel: fax: [facility] [address] [place] [address] Phone: tel: fax: Referral ID Status Reason Start Date Expiration Date V isits Requested Visits Authorized [id number] Closed Specialty Services Required 06/22/2024 07/22/2025 4 4 Question Answer PTRFR PT Evaluate and Treat Reason for Visit EVAL & TREAT FOR UP COMING SURGERY LT KNEE REPLACEMENT Therapy options discussed with patient? Yes Location provided for therapy services is: Patient requested/Patient preferred Please select the performing region: [facility] [[id number]] Please select the performing department: [facility] OP PT [[id number]] # of visits: 4 Comments PLEASE INSTRUCT [...] st Contact Info) Description 06/22/2024 Orders Only [facility] Medical Group Orthopedics and Sports Medicine at [facility] [address] [facility][1] [address] [place] [phone] [place] [address] [address] Arthritis of left knee (Primary [...] materials from doctor or pharmacy Sometimes 03/08/2024 [facility] Utilities Answer Date Recorded In [...] Questionnaire-2 Score 0 01/06/2024 [facility] [place] [facility] - Occupational Stress [...] on file Legal Sex Male 3:25 PM [employer] Gender Identity Not on file Sexual Orientation Not on file documented as of this encounter Plan of Treatment Upcoming Encounters Date Type Department Care Team (Latest Contact Info) Description 10/23/2024 10:00 AM [employer] Hospital Encounter [facility] Operating Room [address] [place] [id number] [place] [address] [address] 10/23/2024 10:00 AM [employer] - 10/23/2024 1:00 PM [employer] Surgery [facility] Operating Room [address] [place] [phone] [place] [address] [address] ARTHROPLASTY TOTAL KNEE LEFT Scheduled Procedures Name Priority Associated Diagnoses Date/Ti me ARTHROPLASTY TOTAL KNEE left knee osteoarthritis 10/23/2024 10:00 AM [employer] ESOPHAGOGASTRODUODENOSCOPY Dysphagia, unspecified type Scheduled Referrals Name Type Priority Associated Diagnoses Order Schedule Ambulatory referral order to Physical Therapy - Outpatient Referral Routine Arthritis of left knee Expected: 06/29/2024 (Approximate), Expires: 06/22/2025 documented as of this encounter Visit Diagnoses Diagnosis Arthritis of left knee- Primary documented in this encounter Care Teams Console Attendant Relationship Specialty Start Date End Date Wolfgang Serrano MD PCP - General Family Medicine 05/05/23 08/02/24 Unknown, Notinfile 03/12/22 [place] [address] [facility] [address] [place] [address] 03/12/22 Chuy Enriquez MD [address] [facility] [address] [place] [address] Consulting Physician Pulmonary Disease 10/13/23 Luis Felipe Cedillo MD [address] [facility] [address] [place] [address] Consulting Physician Gastroenterology 10/13/23 Marlene Thornton MD [address] [facility] [address], [place] [address] Surgeon Vascular Surgery 11/10/23 documented as of this encounter
--- OUTSIDE RECORDS SUMMARY | 2024-10-11 02:58 | XMS_ITS | Continuity of Care Document ---
Author Organization [employer] [place] Address [address] [facility] [address] [place] [address] Phone Care Team Providers Care Voip Network Engineer Name Role Phone Grabiel SOLITARIO, Florentino Unavailable Unavailable Procedures Procedure Date Therapeutic Activities Neuromuscular Re-Ed Therapeutic Exercise Therapeutic Activities Neuromuscular Re-Ed Therapeutic Exercise Therapeutic Activities Neuromuscular Re-Ed Therapeutic Exercise Therapeutic Activities Neuromuscular Re-Ed Therapeutic Exercise Therapeutic Activities Therapeutic Exercise Neuromuscular Re-Ed Neuromuscular Re-Ed Therapeutic Activities Therapeutic Exercise Therapeutic Activities Neuromuscular Re-Ed Therapeutic Exercise Therapeutic Activities Neuromuscular Re-Ed Therapeutic Exercise Neuromuscular Re-Ed Therapeutic Exercise Neuromuscular Re-Ed Therapeutic Activities Therapeutic Exercise Manual Therapy Doc neg elder mal no plan Doc neg elder mal no plan PT Evaluation Moderate Complexity Therapeutic Activities Therapeutic Exercise Progress Note Therapeutic Exercise Neuromuscular Re-Ed Therapeutic Activities Therapeutic Activities Therapeutic Exercise Neuromuscular Re-Ed Hot or Cold Pack Hot or Cold Pack Therapeutic Activities Neuromuscular Re-Ed Electrical Stimulation Therapeutic Activities Neuromuscular Re-Ed Hot or Cold Pack Electrical Stimulation Therapeutic Activities Neuromuscular Re-Ed Therapeutic Exercise Hot or Cold Pack Progress Note Hot or Cold Pack Therapeutic Activities Neuromuscular Re-Ed Therapeutic Exercise Hot or Cold Pack Neuromuscular Re-Ed Therapeutic Activities Therapeutic Activities Neuromuscular Re-Ed Therapeutic Exercise Hot or Cold Pack Therapeutic Activities Neuromuscular Re-Ed Therapeutic Exercise Therapeutic Activities Neuromuscular Re-Ed Therapeutic Exercise Therapeutic Exercise Therapeutic Activities Neuromuscular Re-Ed Hot or Cold Pack Manual Therapy Neuromuscular Re-Ed Hot or Cold Pack Therapeutic Exercise Therapeutic Exercise Manual Therapy Progress Note Neuromuscular Re-Ed Hot or Cold Pack Therapeutic Exercise Neuromuscular Re-Ed Therapeutic Activities Therapeutic Activities Neuromuscular Re-Ed Hot or Cold Pack Manual Therapy Therapeutic Exercise Therapeutic Exercise Neuromuscular Re-Ed Therapeutic Activities Manual Therapy Hot or Cold Pack Neuromuscular Re-Ed Hot or Cold Pack Therapeutic Exercise Manual Therapy Therapeutic Activities Manual Therapy Neuromuscular Re-Ed Therapeutic Exercise Manual Therapy Neuromuscular Re-Ed Therapeutic Exercise Hot or Cold Pack Electrical Stimulation Therapeutic Activities Neuromuscular Re-Ed Therapeutic Exercise Manual Therapy Electrical Stimulation Hot or Cold Pack Progress Note Therapeutic Activities Therapeutic Exercise Manual Therapy Neuromuscular Re-Ed Neuromuscular Re-Ed Hot or Cold Pack Therapeutic Exercise Therapeutic Activities Hot or Cold Pack Therapeutic Exercise Neuromuscular Re-Ed Electrical Stimulation Neuromuscular Re-Ed Hot or Cold Pack Therapeutic Activities Therapeutic Exercise Therapeutic Activities Hot or Cold Pack Neuromuscular Re-Ed Therapeutic Exercise PT Re-evaluation Hot or Cold Pack Therapeutic Activities Therapeutic Exercise Neuromuscular Re-Ed Neuromuscular Re-Ed Therapeutic Activities Therapeutic Exercise Neuromuscular Re-Ed Therapeutic Exercise Therapeutic Activities Therapeutic Activities Progress Note Neuromuscular Re-Ed Therapeutic Exercise Therapeutic Activities Neuromuscular Re-Ed Therapeutic Exercise Neuromuscular Re-Ed Therapeutic Activities Therapeutic Exercise PT Evaluation Low Complexity Therapeutic Exercise Neuromuscular Re-Ed Therapeutic Activities Therapeutic Exercise Manual Therapy Therapeutic Exercise Therapeutic [...] Diagnoses Date Provider Providers Copied on Encounter [facility] [address] [place] [address], [id number], tel:[phone] [place] No Information 2 Grabiel Florentino. . Referring Provider: George Sepulveda [address] [place] [address], [place], [place], [facility]. tel:[phone] [place] [address] [place] [address], [id number], tel:[phone] [place] No Information 2 Grabiel Florentino. . Referring Provider: George Sepulveda [address] [place] [address], [place], [address]. tel:[phone], [id number], tel:[phone] [place] No Information 0 2 Grabiel Florentino. . Referring Provider: George Sepulveda [address] [place] [address], [place], [address]. tel:[phone] [place] [address] [place] [address], [id number], tel:[phone] [place] No Information 3 2 Grabiel Florentino. . Referring Provider: George Sepulveda [address] [place] [address], [place], [facility]. tel:[phone], [place], [id number], tel:[phone] [place] No Information 0 2 Grabiel Florentino. . Referring Provider: George Sepulveda [address] [place] [address], [place], [address]. tel:[phone] [place] [address], [address] [facility], [place], [place], [id number], tel:[phone] [place] No Information 3 2 Grabiel Florentino. . Referring Provider: George Sepulveda [address] [place] [address], [place], [address]. tel:[phone] [place] [address] [address] [facility], [place], [place], [id number], tel:[phone] [place] No Information 2 Grabiel Florentino. . Referring Provider: George Sepulveda [address] [place] [address], [place], [address]. tel:[phone] [place] [address], [address] [facility] [address], [place], [place], [id number], [place] tel:[phone] [place] No Information 2 Grabiel Florentino. . Referring Provider: George Sepulveda [address] [place] [address], [place], [address]. tel:[phone] [place] [address] [place] [address] 300, [place], [place], [id number], tel:[phone] [place] No Information 2 Grabiel Florentino. . Referring Provider: George Sepulveda [address] [place] [address], [place], [address]. tel:[phone] [place] [address] [address] [facility], [place], [id number], [place] tel:[phone] [place] No Information 2 Grabiel Florentino. . Referring Provider: George Sepulveda [address] [place] [address], [place], [address]. tel:[phone] [place] [address] [place] [address] 300, [place], [place], [id number], tel:[phone] [place] No Information 2 Grabiel Traore . Referring Provider: George Sepulveda, [address] [place] [address] Suite [facility], [place], [facility]. tel:[phone] [place] [address] 300, [place], [place], [id number], tel:[phone] [place] No Information 2 Muehl Harinder. [address] [place] [address], [address], [place], [facility], . tel:[phone] Referring Provider: Carol Aceves, [address] [place] [address], [place], [facility]. tel:[phone] [place] [address], [place], [place], [id number], tel:[phone] [place] No Information 2 Clarita Pizano. [address] [place] [address], [address], [place], [facility], . tel:[phone] Referring Provider: Carol Aceves, [address] [place] [address], [place], [facility]. tel:[phone] [place] [address], [place], [place], [id number], tel:[phone] [place] No Information 2 Denisa Parada. . Referring Provider: Carol Aceves, [address] [place] [address], [place], [facility]. tel:[phone] [place] [address], [place], [place], [id number], tel:[phone] [place] No Information 2 Denisa Parada. . Referring Provider: Carol Aceves, [address] [place] [address], [place], [facility]. tel:[phone] [place] [address], [place], [place], [id number], [place] tel:[phone] [place] No Information 0 2 Essner Tal. . Referring Provider: Luis Herman [address], [facility]. tel:[phone] [place] [address], [place], [place], [id number], tel:[phone] [place] No Information 0 2 Muehl Harinder. [address] [place] [address], [address] [address], . tel:[phone] Referring Provider: Luis Herman [facility] Suite [facility], [place], [facility]. tel:[phone] [place] [address], [id number], tel:[phone] [place] No Information 2 Muehl Harinder. [address] [place] [address], [address], [place], [facility], . tel:[phone] Referring Provider: Luis Herman [facility] [address] [place] [address], [facility]. tel:[phone] [place] [address], [id number], tel:[phone] [place] No Information 2 Muehl Harinder. [address] [place] [address], [address] [address], . tel:[phone] Referring Provider: Luis Herman [facility] [address] [place] [address], [facility]. tel:[phone], [id number], tel:[phone] [place] No Information 2 Muehl Harinder. [address] [place] [address], [facility] [address] [address], . tel:[phone] Referring Provider: Carol Claudia Yola, [address] [place] [address], [address]. tel:[phone] [place] [address] [place] [address], [id number], tel:[phone] [place] No Information 2 Essner Tal. . Referring Provider: Carol Aceves, [address] [place] [address], [place], [facility]. tel:[phone], [id number], tel:[phone] [place] No Information 2 Muehl Harinder. [address] [facility], [address], [place], [facility], . tel:[phone] Referring Provider: Carol Aceves, [address] [place] [address], [place], [facility]. tel:[phone] [place] [address], [id number], tel:[phone] [place] No Information 0 2 Muehl Harinder. [address] [place] [address], [address], [place], [facility], . tel:[phone] Referring Provider: Carol Aceves, [address] [place] [address] Suite [facility], [place], [address]. tel:[phone] [place] [address], [id number], tel:[phone] [place] No Information 2 Muehl Harinder. [address] [facility], [address], [place], [facility], . tel:[phone] Referring Provider: Carol Aceves, [address] [place] [address], [place], [facility]. tel:[phone], [id number], tel:[phone] [place] No Information 2 Modglin Tre. . Referring Provider: Carol Aceves, [address] [place] [address] Suite [facility], [place], [address]. tel:[phone] [place] [address], [place], [place], [id number], tel:[phone] [place] No Information 2 Niederhoffer Fernanda. . Referring Provider: Carol Aceves, [address] [place] [address] Suite [facility], [place], [address]. tel:[phone] [place] [address], [place], [place], [id number], [place] tel:[phone] [place] No Information 2 Niederhoffer Fernanda. . Referring Provider: Carol Aceves, [address] [place] [address], [place], [facility]. tel:[phone] [place] [address], [place], [place], [id number], [place] tel:[phone] [place] No Information 2 Niederhoffer Fernanda. . Referring Provider: Carol Aceves, [address] [place] [address], [place], [facility]. tel:[phone] [place] [address], [place], [place], [id number], [place] tel:[phone] [place] No Information 0 2 Yuval Foote. [address] [place] [address], [facility] [address], [place], [facility], [place]. tel:[phone] Referring Provider: Carol Aceves, [address] [place] [address] Suite [facility], [place], [address]. tel:[phone] [place] [address], [place], [place], [id number], [place] tel:[phone] [place] No Information 0 2 Clarita Pizano. [address] [place] [address], [address], [place], [facility], [place]. tel:[phone] Referring Provider: Carol Aceves, [address] [facility] Suite [facility], [place], [address]. tel:[phone], [place], [place], [id number], tel:[phone] [place] No Information Mar-3 0-202 2 Muehl Harinder. [address] [place] [address], [address], [place], [facility], . tel:[phone] Referring Provider: Carol Aceves, [address] [facility] Suite [facility], [place], [address]. tel:[phone] [address], [place], [place], [id number], tel:[phone] [place] No Information Mar-2 8-202 2 Muehl Harinder. [address] [place] [address], [address], [place], [facility], . tel:[phone] Referring Provider: Carol Aceves, [address] [facility] Suite [facility], [place], [address]. tel:[phone] [address], [place], [place], [id number], tel:[phone] [place] No Information Mar-2 4-202 2 Muehl Harinder. [address] [place] [address], [address], [place], [facility], . tel:[phone] Referring Provider: Carol Aceves, [address] [facility] [address] [place] [address], [address]. tel:[phone], [place], [id number], tel:[phone] [place] No Information Mar-2 2-202 2 Muehl Harinder. [address] [place] [address], [address], [place], [facility], . tel:[phone] Referring Provider: Carol Aceevs, [address] [facility] Suite [facility], [place], [facility]. tel:[phone] [place] [address], [place], [place], [id number], tel:[phone] [place] No Information Mar-1 6-202 2 Muehl Harinder. [address] [place] [address], [address], [place], [facility], . tel:[phone] Referring Provider: Carol Aceves, [address] [place] [address], [facility]. tel:[phone] [place] [address], [place], [place], [id number], tel:[phone] [place] No Information Mar-1 5-202 2 Muehl Harinder. [address] [place] [address], [address], [place], [facility], . tel:[phone] Referring Provider: Carol Aceves, [address] [place] [address], [facility]. tel:[phone] [place] [address], [id number], tel:[phone] [place] No Information Mar-1 1-202 2 Muehl Harinder. [address] [place] [address], [address], [place], [facility], . tel:[phone] Referring Provider: Carol Aceves, [address] [place] [address], [address]. tel:[phone] [place] [address], [id number], tel:[phone] [facility] No Information Mar-0 4-202 2 Makler Luke. . Referring Provider: George Sepulveda [address] [place] [address], [place], [address]. tel:[phone] [place] [address] [place] [address], [place], [place], [id number], tel:[phone] [facility] No Information Mar-0 3-202 2 Makler Luke. . Referring Provider: George Sepulveda [address] [place] [address] [place], [address]. tel:[phone] [place] [address], [address] [place] [address], [place], [place], [id number], [place] tel:[phone] [facility] No Information Feb-2 2 Makler Luke. . Referring Provider: George Sepulveda, [address] [place] [address], [place], [address]. tel:[phone] [place] [address], [address] [place] [address], [place], [place], [id number], [place] tel:[phone] [facility] No Information Feb-2 2 Makler Luke. . Referring Provider: George Sepulveda [address] [place] [address], [place], [address]. tel:[phone] [place] [address], [address] [place] [address], [place], [place], [id number], tel:[phone] [facility] No Information Feb-2 2 Makler Luke. . Referring Provider: George Sepulveda [address] [place] [address], [place], [address]. tel:[phone] [place] [address] [place] [address], [place], [place], [id number], [place] tel:[phone] [facility] No Information Feb-2 2 Makler Luke. . Referring Provider: George Sepulveda [address] [place] [address], [place], [address]. tel:[phone] [place] [address], [address] [facility] 300, [place], [place], [id number], [place] tel:[phone] [place] Pain in right kneeEffusion, right kneeMuscle weakness (generalized) Stiffness of right knee, not elsewhere classifiedUns pecified abnormalities of gait and mobility 9 [facility] Harinder. [address] [facility], [address], [place], [facility], [place]. tel:[phone] Referring Provider: Jossie Montalvo, [address] [place] [address], [place], [address]. tel:[phone] [facility] [address] [facility] [address], [place], [place], [id number], tel:[phone] [place] Pain in right kneeEffusion, right kneeMuscle weakness (generalized) Stiffness of right knee, not elsewhere classifiedUns pecified abnormalities of gait and mobility Feb-1 5-201 9 Muehl Harinder. [address] [place] [address], [address], [place], [facility], . tel:[phone] Referring Provider: Jossie Montalvo, [address] [facility] [address], [place], [address]. tel:[phone] [facility] [address], [place], [place], [id number], [place] tel:[phone] [place] Pain in right kneeEffusion, right kneeMuscle weakness (generalized) Stiffness of right knee, not elsewhere classifiedUns pecified abnormalities of gait and mobility Feb-1 2-201 9 Threl[place] Jacquie. . Referring Provider: Jossie Montalvo, [address] [facility] [address], [place], [address]. tel:[phone] [facility] [address], [place], [place], [id number], [place] tel:[phone] [place] Pain in right kneeEffusion, right kneeMuscle weakness (generalized) Stiffness of right knee, not elsewhere classifiedUns pecified abnormalities of gait and mobility Feb-0 7-201 9 Muehl Harinder. [address] [place] [address], [address], [place], [facility], [place]. tel:[phone] Referring Provider: Jossie Montalvo, [address] [facility] [address], [place], [address]. tel:[phone] [facility] [address] [facility] [address], [place], [id number], [place] tel:[phone] [place] Pain in right kneeEffusion, right kneeMuscle weakness (generalized) Stiffness of right knee, not elsewhere classifiedUns pecified abnormalities of gait and mobility Feb-0 5-201 9 Muehl Harinder. [address] [facility], [address], [place], [address], [place]. tel:[phone] Referring Provider: Jossie Montalvo, [address] [facility] [address], [place], [address]. tel:[phone] [facility] [address], [place], [place], [id number], [place] tel:[phone] [place] Pain in right kneeEffusion, right kneeMuscle weakness (generalized) Stiffness of right knee, not elsewhere classifiedUns pecified abnormalities of gait and mobility 9 Clarita Pizano. [address] [facility], [address], [place], [address], [place]. tel:[phone] Referring Provider: Jossie Montalvo, [address] [facility] [address], [place], [address]. tel:[phone] [facility] [address] [place], [place] [address], [place], [place], [id number], [place] tel:[phone] [place] Pain in right kneeEffusion, right kneeMuscle weakness (generalized) Stiffness of right knee, not elsewhere classifiedUns pecified abnormalities of gait and mobility 9 Thadosiel Pizano. [address] [facility], [address], [place], [address], [place]. tel:[phone] Referring Provider: Jossie Montalvo, [address] [facility] [address], [place], [address]. tel:[phone] [facility] [address] [facility] [address], [place], [id number], [place] tel:[phone] [place] Pain in right kneeEffusion, right kneeMuscle weakness (generalized) Stiffness of right knee, not elsewhere classifiedUns pecified abnormalities of gait and mobility 9 Clarita Pizano. [address] [facility], [address], [place], [address], [place]. tel:[phone] Referring Provider: Jossie Montalvo, [address] [facility] [address], [place], [address]. tel:[phone] [facility], [place], [place], [id number], [place] tel:[phone] [place] Pain in right kneeEffusion, right kneeMuscle weakness (generalized) Stiffness of right knee, not elsewhere classifiedUns pecified abnormalities of gait and mobility Dec-2 8 8 Muehl Harinder. [address] [facility], [address], [place], [place], [facility], [place]. tel:[phone] Referring Provider: Jossie Montalvo, [address] [facility] [address], [place], [address]. tel:[phone] [facility], [address] [place], [place] [address], [place], [place], [id number], [place] tel:[phone] [place] Pain in right kneeEffusion, right kneeMuscle weakness (generalized) Stiffness of right knee, not elsewhere classifiedUns pecified abnormalities of gait and mobility Dec-2 8 Maddie Chavez . Referring Provider: Jossie Montalvo, [address] [facility] [address], [place], [address]. tel:[phone] [facility] [address] [facility], [place], [place], [id number], [place] tel:[phone] [place] Pain in right kneeEffusion, right kneeMuscle weakness (generalized) Stiffness of right knee, not elsewhere classifiedUns pecified abnormalities of gait and mobility Dec-2 8 Muehl Harinder. [address] [facility], [address], [place], [address], [place]. tel:[phone] Referring Provider: Jossie Montalvo, [address] [facility] [address], [place], [address]. tel:[phone] [facility] [address] [facility], [place], [id number], [place] tel:[phone] [place] Pain in right kneeEffusion, right kneeMuscle weakness (generalized) Stiffness of right knee, not elsewhere classifiedUns pecified abnormalities of gait and mobility Dec-2 0 8 Muehl Harinder. [address] [facility], [address], [place], [address], [place]. tel:[phone] Referring Provider: Jossie Montalvo, [address], [place], [address]. tel:[phone] Family History Family Member Type Diagnosis Age At Onset No Information Payers Payer name Insurance type Covered libertarian ID Authordon johnson(s) [facility] [id number] [employer] CI [id number] Social History Type Description Quantity Date Captured [...]
--- OUTSIDE RECORDS SUMMARY | 2024-10-11 02:58 | XMS_ITS | Encounter Summary ---
Author Organization [facility] Healthcare Address [address] [place] [address] Care Team Providers Care Trash Truck Driver Name Role Phone Wolfgang Serrano MD Primary Care Provider Unknown, Notinfile Unavailable Unavailable Santino Funk MD Unavailable Chuy Enriquez MD Unavailable Luis Felipe Cedillo MD Unavailable Marlene Thornton MD Unavailable Reason for Visit * Reason Comments Pain Encounter Details Date Type Department Care Team (Late st Contact Info) Description 06/22/2024 3:00 PM CDT Office Visit [facility] Medical Group Orthopedics and Sports Medicine at [facility] [address] [facility] [address] [place] [address] [place] [address] [address] Arthritis of left knee (Primary [...] materials from doctor or pharmacy Sometimes 03/08/2024 [facility] Utilities Answer Date Recorded In the past 12 months has e [facility], [employer], oil, or water [employer] threatened to shut off services in your [...] How often do you attend chur or alevism services? More than 4 times [...] Recorded Patient Health Questionnaire-2 Score 0 01/06/2024 [facility] [place] of Occupat ional Health - Occupational Stress [...] on file Legal Sex Male 3:25 PM FORGER HELPER Gender Identity Not on file Sexual [...] gastric ulcer without hemorrhage or perforation, Alzheimer'sdementia ([facility]), Asthma, Back pain, Cataract, Closed fracture of left tibial plateau with delayed healing, Closed fracture of right tibial plateau with delayed healing, Closed nondisplaced osteochondral fracture of left patella with delayed healing, Closed osteochondral fracture of patella, right, with delayed healing, subsequent encounter, Clotting disorder ([facility]) ([facility]), Complex tear of medialmeniscus of left knee as current injury, Complex tear of medial meniscus of right knee as current injury, Cramps of lower extremity, Diverticulitis of colon, Easy bruisability, Enlarged prostate, Fati nan, Frequent urination, Gastroesophageal reflux disease, Hyperlipidemia, Hypertension, Hypothyroidism, Incontinence of urine, Muscle weakness, Osteoarthritis, Peptic ulcer, Seizures ([facility]) (1997), SOB (shortness of breath) on exertion, Stroke ([facility]) (12/09/2023), Subchondral insufficiency fracture of condyle of left femur ([facility]) ([facility]), Vertigo, Vision changes, Visual disturbance, and . [...] (Latest Contact Info) Description 10/23/2024 10:00 AM FORGER HELPER Hospital Encounter [facility] Operating Room [address] [place] [address] [place] [id number] [place] [address] 10/23/2024 10:00 AM FORGER HELPER - 10/23/2024 1:00 PM FORGER HELPER Surgery [facility] Operating Room [address] [place] [address] [place] [address] [facility] [address] [place] [address] ARTHROPLASTY TOTAL KNEE LEFT Scheduled Procedures Name Priority Associated Diagnoses Date/Ti me ARTHROPLASTY TOTAL KNEE left knee osteoarthritis 10/23/2024 10:00 AM FORGER HELPER ESOPHAGOGASTRODUODENOSCOPY Dysphagia, unspecified type documented as of this encounter Results * Vitamin D 25 hydroxy (07/11/2024 11:07 AM CDT) [facility] Vitamin D 25-OH 56 30 - 80 ng/mL Blood 07/11/2024 11:0 7 AM CDT 07/11/2024 12:07 PM CDT us Grey Dykes MD LAB BLOOD ORDERABLES Final Result MARVIN PHILLIP [address] [employer] [place], [place] [phone] * Protein, total (07/11/2024 11:07 AM CDT) [facility] Protein, pl 6.7 6.5 - 8.5 g/dL Blood 07/11/2024 11:0 7 AM CDT 07/11/2024 12:07 PM CDT us Grey Dykes MD LAB BLOOD ORDERABLES Final Result MARVNI PHILLIP [address] Department of [employer] [place], [place] [phone] * (ABNORMAL) Hemoglobin A1c (07/11/2024 11:07 AM CDT) [facility] Hgb A1C 6.1(H) 4.0 - 5.6 % Estimated Average Glucose 128 mg/dL MARVIN Comment: The ADA recommends reporting an estimated Average Glucose (eAG) with all Hemoglobin A1c results using the equation derived from a study of 507 normal and diabetic adults. ??Minority populations were underrepresented and children were not included. ?? (Diabetes Care 31:5522-9197, 2008). ??The eAG is not equivalent to a fasting glucose. Blood 07/11/2024 11:0 7 AM CDT 07/11/2024 12:06 PM CDT Grey Dykes MD LAB BLOOD ORDERABLES Final Result Performing Organization Address City/[facility]/ZIP Co de Phone Number [facility] [address] [address] [facility] [place] [address] * Albumin (07/11/2024 11:07 AM CDT) Albumin 3.6 3.5 - 5.0 g/dL Blood 07/11/2024 11:0 7 AM CDT 07/11/2024 12:07 PM CDT Grey Dykes MD LAB BLOOD ORDERABLES Final Result Performing Organization Address City/[facility] Co de Phone Number [facility] [address] [address] [facility] [place] [address] documented in this encounter Visit Diagnoses Diagnosis Arthritis of left knee- Primary Hypoglycemia Hypoglycemia, unspecified Vitamin D deficiency documented in this encounter Care Teams Trash Truck Driver Relationship Specialty Start Date End Date Wolfgang Serrano MD PCP - General Family Medicine 05/05/23 08/02/24 Unknown, Notinfile 03/12/22 [place] [address] [address] [facility] [address] [place] [address] 03/12/22 Chuy Enriquez MD [address] [facility] [address] [place] [address] Consulting Physician Pulmonary Disease 10/13/23 Luis Felipe Cedillo MD [address] [facility] [address] [address] Consulting Physician Gastroenterology 10/13/23 Marlene Thornton MD [address] [facility] [address] [address] Surgeon Vascular Surgery 11/10/23 documented as of this encounter
--- OUTSIDE RECORDS SUMMARY | 2024-10-11 02:58 | XMS_ITS | Encounter Summary ---
Author Organization [facility] Address [address] [place] [address] Phone Care Team Providers Care Drum Tester Name Role Phone Wolfgang Serrano MD Primary Care Provider Wolfgang Serrano MD Unavailable Unknown, Notinfile Unavailable Unavailable Santino Funk MD Unavailable Chuy Enriquez MD Unavailable Luis Felipe Cedillo MD Unavailable Marlene Thornton MD Unavailable [phone] Reason for Referral * Consultation (Routine) - Pending Review Specialty Diagnoses / Procedures Referred By Dillan t Referred To Contact Pain Management Diagnoses Acute knee pain, unspecified laterality Left knee pain, unspecified chronicity Judah Celaya MD [address] [facility] [place] [address] Phone: tel: fax: [facility] [address] [place] [address] Referral ID Status Reason Start Date Expiration Date Visits Requested Visits Authorized [id number] Pending Review Specialty Services Required 11/1909/28/2025 1 1 Question Answer Please select the performing region: [facility] [157] # of visits: 1 Comments Eval for consideration for left knee RFA UAGE SPECIALIST * Diagnostic Imaging (Routine) - Closed Specialty Diagnoses / Procedures Referred By Contac t Referred To Contact Diagnoses Left knee pain, unspecified chronicity Procedures XR Knee Left 4 or More Views Judah Celaya MD [address] [facility] [address]A/6B/[address] [place] [address] Phone: tel: fax: [facility] Radiology [address] [place] [phone] Phone: tel: Referral ID Status Reason Start Date Expiration Date Visits Re quested Visits Authorized [id number] Closed 08/15/2024 09/14/2025 1 1 UAGE SPECIALIST * Diagnostic Imaging (Routine) - Closed Specialty Diagnoses / Procedures Referred By Contac t Referred To Contact Diagnoses Acute knee pain, unspecified laterality Procedures XR Pelvis 1 or 2 Views Judah Celaya MD [address] [facility] [address] [place] [address] Phone: tel: fax: [facility] Radiology [address] [place] [phone] Phone: tel: Referral ID Status Reason Start Date Expiration Date Visits Re quested Visits Authorized [id number] Closed 08/15/2024 09/14/2025 1 1 UAGE SPECIALIST Reason for Visit * Reason Comments Pain * Consultation (Routine) - Closed Specialty Diagnoses / Procedures Referred By Contac t Referred To Contact Orthopedic Surgery Diagnoses Right knee pain, unspecified chronicity Jevon Barrera, GIS DATABASE ADMINISTRATOR [address] [place] [address] Phone: tel: fax: [facility] (All Locations) Referral ID Status Reason Start Date Expiration Date V isits Requested Visits Authorized [id number] Closed Specialty Services Required 08/03/2024 09/02/2025 1 1 Encounter Details Date Type Department Care Team (Late st Contact Info) Description 08/29/2024 9:00 AM LANGUAGE SPECIALIST Office Visit [facility] Orthopaedic Surgery [address] [facility] Medical Office Building [address] [place] [address] Judah Celaya MD [address] [facility] [address] [place] [address] Primary osteoarthritis of left knee (Primary Dx); [...] or pharmacy Sometimes 03/08/2024 [facility] Utilities Answer Date Recorded In the past 12 months has [employer], [employer], oil, or water [employer] threatened to shut off services in your [...] How often do you attend chur or gnosticism services? More than 4 times per year 12/16/2023 Do you belong to any clubs o r organizations such as zoroastrian groups, unions, fraternal or athletic groups, or [...] Questionnaire-2 Score 0 01/06/2024 [facility] of Occupat ional Health - Occupational [...] on file Legal Sex Male 3:25 PM LANGUAGE SPECIALIST Gender Identity Not on file Sexual Orientation Not on file documented as of this encounter Last Filed Vital Signs Vital Sign Reading Time Taken Comments Blood Pressure - - Pulse - - Temperature - - Respiratory Rate - - Oxygen Saturation - - Inhaled Oxygen Concentration - - Weight 85.3 kg (188 lb) 08/29/2024 10:05 AM LANGUAGE SPECIALIST Height 179.1 cm (5' 10.5 ) 08/29/2024 10:05 AM C Body Mass Index 26.59 08/29/2024 10:05 AM LANGUAGE SPECIALIST documented in this encounter Progress Notes * [...] subsequent encounter, Clotting disorder (CMS/HCC) ([facility]), Complex tear of medial meniscus of left knee as current injury, Complex tear of medial meniscus of right knee as current injury, Cramps of lower extremity, Diverticulitis of colon, Easy bruisability, Enlarged prostate, Fatigue, Frequent urination, Gastroesophageal reflux disease, Hyperlipidemia, Hypertension, Hypothyroidism, Incontinence of urine, Muscle weakness, Osteoarthritis, Peptic ulcer, Seizures ([facility]) (1997), SOB (shortness of breath) on exertion, Stroke ([facility]) (12/09/2023), Subchondral insufficiency fracture of co ndyle of left femur ([facility]), Vertigo, Vision changes, Visual disturbance, and [...] total) by mouth 2 (two) times a [id number] tablet 0 No current facility-administered medications on [...] will plan for TKA Judah Celaya MD/FLIP House Parent of Orthopaedic Surgery Adult Hip and Knee Reconstruction UAGE SPECIALIST documented in this encounter Plan of Treatment Upcoming Encounters Date Type Department Care Team (Latest Contact Info) Description 10/23/2024 10:00 AM LANGUAGE SPECIALIST Hospital Encounter [facility] Operating Room [address] [place] [address] [place] [address] [address] 10/23/2024 10:00 AM LANGUAGE SPECIALIST - 10/23/2024 1:00 PM LANGUAGE SPECIALIST Surgery [facility] Operating Room [address] [place] [address] [place] [address] [address] ARTHROPLASTY TOTAL KNEE LEFT Scheduled Procedures Name Priority Associated Diagnoses Date/Ti me ARTHROPLASTY TOTAL KNEE left knee osteoarthritis 10/23/2024 10:00 AM LANGUAGE SPECIALIST ESOPHAGOGASTRODUODENOSCOPY Dysphagia, unspecified type Scheduled Referrals Name Type Priority Associated Diagnoses Orde r Schedule Ambulatory referral to Pain Management Outpatient Referral Routine Acute knee pain, unspecified laterality Left knee pain, unspecified chronicity Expected: 09/12/2024 (Approximate), Expires: 08/29/2025 documented as of this encounter Results * XR Knee Left 4 or More Views (08/29/2024 9:28 AM LANGUAGE SPECIALIST) Anatomical Region Laterality Modality Lower Extremities, Knee Left Computed Radiography 08/29/2024 11:0 7 AM LANGUAGE SPECIALIST Impressions 08/29/2024 11:10 AM LANGUAGE SPECIALIST 1. 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 2. ??Mild bilateral hip osteoarthritis. Dictated by: Ap Mcgregor M.D. The radiology attending physician has personally reviewed this study, and had reviewed and/or edited this written report and agrees with it. Electronically signed by: Errol Parnell M.D. Narrative 08/29/2024 11:10 AM LANGUAGE SPECIALIST EXAMINATION: XR KNEE LEFT 4 OR [...] 1 or 2 Views (08/29/2024 9:28 AM LANGUAGE SPECIALIST) Anatomical Region Laterality Modality Body, Pelvis N/A Computed Radiogr aphy 08/29/2024 11:0 7 AM LANGUAGE SPECIALIST Impressions 08/29/2024 11:10 AM LANGUAGE SPECIALIST 1. 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 2. ??Mild bilateral hip osteoarthritis. Dictated by: Ap Mcgregor M.D. The radiology attending physician has personally reviewed this study, and had reviewed and/or edited this written report and agrees with it. Electronically signed by: Errol Parnell M.D. Narrative 08/29/2024 11:10 AM LANGUAGE SPECIALIST EXAMINATION: XR KNEE LEFT 4 OR [...] daily added in this encounter Care Teams Drum Tester Relationship Specialty Start Date End Date Wolfgang Serrano MD [address] [place] [address] PCP - General Family Medicine 08/03/24 Wolfgang Serrano MD [address] [place] [address] Family Medicine 08/03/24 Unknown, Notinfile 6/2/22 [place] [address] [facility] [address] [place] [address] 03/12/22 Chuy Enriquze MD [address] [facility] [address] [place] [address] Consulting Physician Pulmonary Disease 10/13/23 Luis Felipe Cedillo MD [address] [facility] [address] [place] [address] Consulting Physician Gastroenterology 10/13/23 Marlene Thornton MD [address] [facility] [address] [place] [address] Surgeon Vascular Surgery 11/10/23 documented as of this encounter
--- OUTSIDE RECORDS SUMMARY | 2024-10-11 02:58 | XMS_ITS | Encounter Summary ---
Author Organization [facility] Healthcare Address [address] [place] [address] Care Team Providers Care Heading Pinner Name Role Phone Wolfgang Serrano MD Primary Care Provider [phone] Wolfgang Serrano MD Unavailable [phone] Unknown, Notinfile Unavailable Unavailable Santino Funk MD Unavailable Chuy Enriquez MD Unavailable [phone] Luis Felipe Cedillo MD Unavailable Marlene Thornton MD Unavailable [phone] Reason for Referral * Diagnostic Imaging (Routine) - Closed Specialty Diagnoses / Procedures Referred By Contac t Referred To Contact Diagnoses Acute knee pain, unspecified laterality Procedures XR Pelvis 1 or 2 Views Judah Celaya MD [address] [facility] [place] [address] Phone: tel: fax: [facility] Radiology [address] [facility] [address] [place] [address] Phone: tel: Referral ID Status Reason Start Date Expiration Date Visits Re quested Visits Authorized [id number] Closed 08/15/2024 09/14/2025 1 1 GE CLIPPER * Diagnostic Imaging (Routine) - Closed Specialty Diagnoses / Procedures Referred By Contac t Referred To Contact Diagnoses Left knee pain, unspecified chronicity Procedures XR Knee Left 4 or More Views Judah Celaya MD [address] [facility] [address]B/[address], [place] [address] Phone: tel: fax: [facility] Radiology [address] [place] [address] [address] [place] [address] Phone: tel: Referral ID Status Reason Start Date Expiration Date Visits Re quested Visits Authorized [id number] Closed 08/15/2024 09/14/2025 1 1 GE CLIPPER Reason for Visit * Diagnostic Imaging (Routine) - Closed Specialty Diagnoses / Procedures Referred By Contac t Referred To Contact Diagnoses Left knee pain, unspecified chronicity Procedures XR Knee Left 4 or More Views Judah Celaya MD [address] [facility] [address], [place] [address] Phone: tel: fax: [facility] Radiology [address] [place] [address] [address] [place] [address] Phone: tel: Referral ID Status Reason Start Date Expiration Date Visits Re quested Visits Authorized [id number] Closed 08/15/2024 09/14/2025 1 1 Encounter Details Date Type Department Care Team (Latest Contact Info) Description 08/29/2024 8:30 AM SPONGE CLIPPER - 08/29/2024 11:59 PM SPONGE CLIPPER Hospital Encounter [facility] Radiology [address] [place] [address] [address] [place] [address] Left knee pain, [...] materials from doctor or pharmacy Sometimes 03/08/2024 [facility] Utilities Answer Date Recorded In the past 12 months has th e [employer], gas, oil, or water [facility] threatened to shut off services in your [...] Patient Health Questionnaire-2 Score 0 01/06/2024 [facility] of Occupat ional Health - Occupational Stress [...] on file Legal Sex Male 3:25 PM SPONGE CLIPPER Gender Identity Not on file Sexual Orientation [...] (Latest Contact Info) Description 10/23/2024 10:00 AM SPONGE CLIPPER Hospital Encounter [facility] Operating Room [address] [place] [address] [place] [address] [address] 10/23/2024 10:00 AM SPONGE CLIPPER - 10/23/2024 1:00 PM SPONGE CLIPPER Surgery [facility] Operating Room [address] [place] [address] [place] [address] [facility] [address] [place], [place] [id number] ARTHROPLASTY TOTAL KNEE LEFT Scheduled Procedures Name Priority Associated Diagnoses Date/Ti me ARTHROPLASTY TOTAL KNEE left knee osteoarthritis 10/23/2024 10:00 AM SPONGE CLIPPER ESOPHAGOGASTRODUODENOSCOPY Dysphagia, unspecified type documented as of this encounter Procedures Procedure Name Priority Date/Time Associated Diagnosis Comments XR PELVIS 1 OR 2 VIEWS Schedule Routine, Read Routine (OP Routine) 08/29/2024 9:28 AM SPONGE CLIPPER Acute knee pain, unspecified laterality XR KNEE LEFT 4 OR MORE VIEWS Schedule Routine, Read Routine (OP Routine) 08/29/2024 9:28 AM SPONGE CLIPPER Left knee pain, unspecified chronicity documented in this encounter Results * XR Pelvis 1 or 2 Views (08/29/2024 9:28 AM SPONGE CLIPPER) Anatomical Region Laterality Modality Body, Pelvis N/A Computed Radiogr aphy 08/29/2024 11:0 7 AM SPONGE CLIPPER Impressions 08/29/2024 11:10 AM SPONGE CLIPPER 1. 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 2. ??Mild bilateral hip osteoarthritis. Dictated by: Ap Mcgregor M.D. The radiology attending physician has personally reviewed this study, and had reviewed and/or edited this written report and agrees with it. Electronically signed by: Errol Parnell M.D. Narrative 08/29/2024 11:10 AM SPONGE CLIPPER EXAMINATION: XR KNEE LEFT 4 OR MORE [...] 4 or More Views (08/29/2024 9:28 AM SPONGE CLIPPER) Anatomical Region Laterality Modality Lower Extremities, Knee Left Computed Radiography 08/29/2024 11:0 7 AM SPONGE CLIPPER Impressions 08/29/2024 11:10 AM SPONGE CLIPPER 1. 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 2. ??Mild bilateral hip osteoarthritis. Dictated by: Ap Mcgregor M.D. The radiology attending physician has personally reviewed this study, and had reviewed and/or edited this written report and agrees with it. Electronically signed by: Errol Parnell M.D. Narrative 08/29/2024 11:10 AM SPONGE CLIPPER EXAMINATION: XR KNEE LEFT 4 OR MORE [...] laterality documented in this encounter Care Teams Heading Pinner Relationship Specialty Start Date End Date Wolfgang Serrano MD [address] [place] [id number] PCP - General Family Medicine 10/24/24 Wolfgang Serrano MD [address] [address] Family Medicine 08/03/24 Unknown, Notinfile 03/12/22 [place] [address] [address] [facility] [address] [place] [address] 03/12/22 Chuy Enriquez MD [address] [facility] [address] [place] [address] Consulting Physician Pulmonary Disease 10/13/23 Luis Felipe Cedillo MD [address] [facility] [address], [place] [address] Consulting Physician Gastroenterology 10/13/23 Marlene Thornton MD [address] [address] Surgeon Vascular Surgery 11/10/23 documented as of this encounter
--- OUTSIDE RECORDS SUMMARY | 2024-10-11 02:58 | XMS_ITS | Clinical Summary ---
Author Organization [facility] Address [address] [place] [address] Care Team Providers Care Broiler Manager Name Role Phone Wolfgang Serrano MD Primary Care Provider [phone] Wolfgang Serrano MD Unavailable [phone] Unknown, Notinfile Unavailable Unavailable Santino Funk MD Unavailable [phone] Chuy Enriquez MD Unavailable Luis Felipe Cedillo MD Unavailable [phone] Marlene Thornton MD Unavailable Allergies No known active allergies Medications cholecalciferol [...] 06/22/2024 Assessment & Plan (10/05/2024 9:45 AM UTILIZATION REVIEW COORDINATOR): The patient has advanced arthritis of the [...] of cerebrovascular accident (CVA) ([facility]) 03/21/2024 Arthritis of left knee 12/29/2023 [...] 2025 Assessment & Plan (11/18/2023 2:34 PM UTILIZATION REVIEW COORDINATOR): RLL nodule in a patient without clear [...] maintenance/vaccinations Assessment & Plan (11/18/2023 2:34 PM UTILIZATION REVIEW COORDINATOR): Related to hiatal hernia, reflux Sx are [...] (12/05/2019): Added automatically from request for surgery [id number] Subchondral insufficiency fracture of condyle of left [...] Type Department Care Team Description 10/09/2024 Telephone [facility] Gastroenterology [address] [facility] [address], [address] [place] [address] Jenni Eddy, MARAH Unsuccessful Phone Call 1; GI Preprocedure 10/06/2024 12:10 PM UTILIZATION REVIEW COORDINATOR Lab [address] [place] [address] Primary osteoarthritis of left knee 10/05/2024 9:00 AM UTILIZATION REVIEW COORDINATOR Office Visit [facility] Orthopedics and Sports Medicine at [address] [place] [address] Grey Dykes MD Primary osteoarthritis of left knee (Primary Dx) 08/30/2024 Telephone [facility] at [facility] [address] [facility] [address], [address] [place] [address] Laly Shi, MARAH PMC Intake Assessment 08/29/2024 9:00 AM UTILIZATION REVIEW COORDINATOR Office Visit [facility] Orthopaedic Surgery [address] [facility] Medical Office [address] [place] [phone] Judah Celaya MD Primary osteoarthritis of left knee (Primary Dx); Acute knee pain, unspecified laterality; Left knee pain, unspecified chronicity 08/29/2024 8:30 AM UTILIZATION REVIEW COORDINATOR - 08/29/2024 11:59 PM UTILIZATION REVIEW COORDINATOR Hospital Encounter [facility] Rad[facility] [address] [facility] [address] [place] [phone] Left knee pain, unspecified chronicity; Acute knee pain, unspecified laterality Discharge Disposition: Discharge to home or self care 07/26/2024 Telephone [facility] Orthopedics and Sports Medicine at [address] [phone] Grey Dykes MD 07/24/2024 8:33 AM CDT - 07/24/2024 9:31 AM CDT Hospital Encounter [facility] Operating Room [address] [place] [address] Grey Dykes MD Discharge Disposition: Discharge to home or self care 07/17/2024 Documentation [facility] Pre Anesthesia Testing [address] [place] [address] Madie Trujillo RN 07/17/2024 Orders Only [facility] Orthopedics and Sports Medicine at [address] [phone] Carol Aceves PA 07/14/2024 Documentation [facility] Pre Anesthesia Testing [address] [place] [address] Madie Trujillo, MARAH 07/12/2024 8:00 AM CDT Office Visit [facility] Stroke [address] [facility] [address] [place] [address] Gomez Reddy MD Cerebrovascular accident (CVA), unspecified mechanism ([facility]) 07/11/2024 10:45 AM CDT Pre-Admission Testing [facility] Pre Anesthesia Testing [address] [place] [address] Pre-op testing (Primary Dx); Arthritis of left [...] hx of double vision, corrective lenses Seizures ([facility]) 1997 last seizure in 1997 Asthma Cataract SOB (shortness of breath) on exertion Subchondral insufficiency fr acture of condyle of left femur ([facility]) Closed fracture of left tibi al [...] knee as current injury Vertigo Alzheimer's dementia ([facility]) Diverticulitis of colon Incontinence of urine Hypothyroidism Fatigue Vision changes Easy bruisability Frequent urination Back pain Muscle weakness Cramps of lower extremity Clotting disorder (CMS/HCC) ([facility]) Hyperlipidemia Hypertension Enlarged prostate Stroke ([facility]) 12/09/2023 left leg works o k, [...] doctor or pharmacy Sometimes 03/08/2024 [facility] Utilities Answer Date Recorded In the past 12 months has th e [employer], gas, oil, or water [employer] threatened to shut off services in your [...] any clubs o r organizations such as episcopalian groups, unions, fraternal or athletic groups, or [...] Recorded Patient Health Questionnaire-2 Score 0 01/06/2024 [facility] of Occupat ional Health - Occupational Stress [...] on file Legal Sex Male 3:25 PM UTILIZATION REVIEW COORDINATOR Gender Identity Not on file Sexual [...] 85.3 kg (188 lb) 10/05/2024 9:24 AM UTILIZATION REVIEW COORDINATOR Height 177.8 cm (5' 10 ) 10/05/2024 9:24 AM UTILIZATION REVIEW COORDINATOR Body Mass Index 26.98 10/05/2024 9:24 AM UTILIZATION REVIEW COORDINATOR Plan of Treatment Upcoming Encounters Date Type Department Care Team (Latest Contact Info) Description 10/23/2024 10:00 AM UTILIZATION REVIEW COORDINATOR Hospital Encounter [facility] Operating Room [address] [place] [address] [place] [id number] [address] 10/23/2024 10:00 AM UTILIZATION REVIEW COORDINATOR - 10/23/2024 1:00 PM UTILIZATION REVIEW COORDINATOR Surgery [facility] Operating Room [address] [place] [address] [place] [phone] [id number] ARTHROPLASTY TOTAL KNEE LEFT Scheduled Procedures Name Priority Associated Diagnoses Date/Ti me ARTHROPLASTY TOTAL KNEE left knee osteoarthritis 10/23/2024 10:00 AM UTILIZATION REVIEW COORDINATOR ESOPHAGOGASTRODUODENOSCOPY Dysphagia, unspecified type Health Maintenance Due [...] 11/12/2023, 10/11/2023 Medical Devices Implanted Type Area Staff Cytotechnologist Device Identifier Shelf Expiration Date Model / Serial / Lot [employer] 201.050 Nif - [id number] Implanted:Qty: 1 on 09/22/2018 by George Sepulveda MD at [facility] al: Knee [employer] 04/09/2020 201.050 / / [id number] Subchondroplasty Knee Kit Implanted:Qty: 1 on 09/22/2018 by George Sepulveda MD at [facility] al: Knee [employer] 11/10/2020 402.203(201.0 50) / [id number] / [id number] Description:KIT CONTAINS IMP LANT: ACCUFILL, 5ML, REF# 201.050, LOT # [id number], EX: 11-10-2020 System [employer]ix Bone Cement - [id number] Implanted:Qty: 1 on 09/22/2018 by George Sepulveda MD at [facility] [employer] 03/28/2021 311.100 / / [id number] [employer] [id number] Palacos R+G High Viscosity Cement Bone Gentamicin Arthroplasty - [id number] Implanted:Qty: 1 on 11/24/2021 by George Sepulveda MD at [facility] Right: Knee [employer] 05/10/2024 [id number] / / [id number] [employer] [id number] Persona Cruciate Retain Knee Right 11 Narrow Component Femoral - [id number] Implanted:Qty: 1 on 11/24/2021 by George Sepulveda MD at [facility] Right: Knee [employer] 07/13/2030 [id number] / / [id number] [employer] [id number] Persona 35mm Knee Component Patellar All Poly Latex Free - [id number] Implanted:Qty: 1 on 11/24/2021 by George Sepulveda MD at [facility] Right: Knee [employer] 03/25/2029 [id number] / / [id number] [employer] [id number] Persona 14mm 30+ Mm Knee Tibia Taper Extension Stem - [id number] Implanted:Qty: 1 on 11/24/2021 by George Sepulveda MD at [facility] Right: Knee [employer] 07/27/2031 [id number] / / [id number] [employer] [id number] Persona Natural Tibia Stem Knee Right 5d G Baseplate Tibial - [id number] Implanted:Qty: 1 on 11/24/2021 by George Sepulveda MD at [facility] Right: Knee [employer] 05/13/2031 [id number] / / [id number] [employer] [id number] Persona 10mm Knee Insert Articular Vivacit-E Sterile - [id number] Implanted:Qty: 1 on 11/24/2021 by George Sepulveda MD at [facility] Right: Knee [employer] 05/06/2026 [id number] / / [id number] Procedures Procedure Name Priority Date/Time Associated Diagnosis Comments URINALYSIS, MICROSCOPIC ONLY Routine 10/06/2024 12:12 PM UTILIZATION REVIEW COORDINATOR Primary osteoarthritis of left knee PROTEIN, TOTAL Routine 10/06/2024 12:12 PM UTILIZATION REVIEW COORDINATOR Primary osteoarthritis of left knee URINALYSIS AND REFLEX TO MICROSCOPIC AND CULTURE Routine 10/06/2024 12:12 PM UTILIZATION REVIEW COORDINATOR Primary osteoarthritis of left knee XR PELVIS 1 OR 2 VIEWS Schedule Routine, Read Routine (OP Routine) 08/29/2024 9:28 AM UTILIZATION REVIEW COORDINATOR Acute knee pain, unspecified laterality XR KNEE LEFT 4 OR MORE VIEWS Schedule Routine, Read Routine (OP Routine) 08/29/2024 9:28 AM UTILIZATION REVIEW COORDINATOR Left knee pain, unspecified chronicity URINALYSIS, MICROSCOPIC [...] CONTRAST ED Urgent/IP Urgent 10/11/2023 10:12 AM UTILIZATION REVIEW COORDINATOR from Last 3 Months or Most Recently Relevant to Health Maintenance Results * (ABNORMAL) Urinalysis reflex to microscopic and culture Urine, clean voided (10/06/2024 12:12 PM UTILIZATION REVIEW COORDINATOR) Color, ur Yellow Yellow Clarity, ur Clear [...] tendency for uric acid stone formation. Source: [facility] Current Interpretive Data was last revised [...] CERNER Urine, clean voided 10/06/2024 12:12 PM UTILIZATION REVIEW COORDINATOR 10/06/2024 8:10 PM UTILIZATION REVIEW COORDINATOR Grey Dykes MD LAB MICROBIOLOGY - GENERAL ORDERABLES Final Result Performing Organization Address [facility] de Phone Number [facility] [address] [address] [employer] [place] [address] * (ABNORMAL) Urinalysis, microscopic only (10/06/2024 12:12 PM UTILIZATION REVIEW COORDINATOR) WBC, ur 0-5 0 - 5 /HPF RBC, ur 3-5(A) 0 - 2 /HPF CERNER Mucous, ur Present(A) CERNER CH Calcium oxalate crystals, ur Trace(A) CERNER CH Culture Reflex Comment Reflex conditions for urine culture (WBC >10) not met. [facility] Urine, clean voided 10/06/2024 12:12 PM UTILIZATION REVIEW COORDINATOR 10/06/2024 8:12 PM UTILIZATION REVIEW COORDINATOR us Grey Dykes MD LAB URINE ORDERABLES Final Result Performing Organization Address [facility] Co de Phone Number [facility] [address] [address] [facility] [place] [address] * (ABNORMAL) Protein, total (10/06/2024 12:12 PM UTILIZATION REVIEW COORDINATOR) Protein, pl 6.4(L) 6.5 - 8.5 g/dL Blood 10/06/2024 12:1 2 PM UTILIZATION REVIEW COORDINATOR 10/06/2024 8:10 PM UTILIZATION REVIEW COORDINATOR us Grey Dykes MD LAB [place] [address] [address] Department [place] [address] * XR Pelvis 1 or 2 Views (08/29/2024 9:28 AM UTILIZATION REVIEW COORDINATOR) Anatomical Region Laterality Modality Body, Pelvis N/A Computed Radiogr aphy 08/29/2024 11:0 7 AM UTILIZATION REVIEW COORDINATOR Impressions 08/29/2024 11:10 AM UTILIZATION REVIEW COORDINATOR 1. 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 2. ??Mild bilateral hip osteoarthritis. Dictated by: Ap Mcgregor M.D. The radiology attending physician has personally reviewed this study, and had reviewed and/or edited this written report and agrees with it. Electronically signed by: Errol Parnell M.D. Narrative 08/29/2024 11:10 AM UTILIZATION REVIEW COORDINATOR EXAMINATION: XR KNEE LEFT 4 OR MORE [...] 4 or More Views (08/29/2024 9:28 AM UTILIZATION REVIEW COORDINATOR) Anatomical Region Laterality Modality Lower Extremities, Knee Left Computed Radiography 08/29/2024 11:0 7 AM UTILIZATION REVIEW COORDINATOR Impressions 08/29/2024 11:10 AM UTILIZATION REVIEW COORDINATOR 1. 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 2. ??Mild bilateral hip osteoarthritis. Dictated by: Ap Mcgregor M.D. The radiology attending physician has personally reviewed this study, and had reviewed and/or edited this written report and agrees with it. Electronically signed by: Errol Parnell M.D. Narrative 08/29/2024 11:10 AM UTILIZATION REVIEW COORDINATOR EXAMINATION: XR KNEE LEFT 4 OR MORE [...] LAB BLOOD ORDERABLES Final Res ult [place] [address] [address] Department [place] [address] * (ABNORMAL) Urinalysis reflex to [...] tendency for uric acid stone formation. Source: [facility] [employer] Current Interpretive Data was last revised on [...] ORD ERABLES Final Result Performing Organization Address City/[facility]/ZIP Co de Phone Number [place] FISH[place] [address] [address] Department [place] [employer] [place] [address] * Vitamin D 25 hydroxy (07/11/2024 11:07 AM CDT) Vitamin D 25-OH 56 30 - 80 ng/mL Blood 07/11/2024 11:0 7 AM CDT 07/11/2024 12:07 PM CDT us Grey Dykes MD LAB BLOOD ORDERABLES Final Result Performing Organization Address [facility] Co de Phone Number [place] [address] [address] Department [place] [address] * (ABNORMAL) Urinalysis, microscopic only [...] ORDERABLES Final Res ult Performing Organization Address [facility] Co de Phone Number [place] [address] [address] Department [employer] [place], [place] [address] * Type and screen (07/11/2024 11:07 AM [...] TEST ORDERABLES Final Result Performing Organization Address City/[facility]/ZIP Co de Phone Number [place] [address] [address] Department [place] [address] * Urine culture Urine, clean voided (07/11/2024 11:07 AM CDT) Report Final Report: Less than 100,000 colonies/mL (clinically insignificant growth based on current clinical standards) Comment:Testing performed by : [facility], [address] [place]., [address] Organism (CLINICALLY INSIGNIFICANT GROWTH MARVIN Urine, clean voided 07/11/2024 11:07 AM CDT 07/12/2024 6:55 PM CDT Narrative MARVIN - 07/14/2024 9:46 AM CDT Urine culture reflexed based upon urinalysis results. Testing performed by [facility] Microbiology Laboratory ([phone]) Kavitha Ramirez NP LAB MICROBIOLOGY - GENERAL ORD ERABLES Final Result Performing Organization Address City/[facility]/ZIP Co de Phone Number [place] [address] [address] [place] [address] * Protein, total (07/11/2024 11:07 AM CDT) Protein, pl 6.7 6.5 - 8.5 g/dL Blood 07/11/2024 11:0 7 AM CDT 07/11/2024 12:07 PM CDT Grey Dykes MD LAB BLOOD ORDERABLES Final Result Performing Organization Address City/[facility]/ZIP Co de Phone Number [place] [address] [place] [address] * (ABNORMAL) Hemoglobin A1c (07/11/2024 11:07 AM CDT) Hgb A1C 6.1(H) 4.0 - 5.6 % Estimated Average Glucose 128 mg/dL [place] Comment: The ADA recommends reporting an estimated Average Glucose (eAG) with all Hemoglobin A1c results using the equation derived from a study of 507 normal and diabetic adults. ??Minority populations were underrepresented and children were not included. ?? (Diabetes Care 31:2815-1035, 2008). ??The eAG is not equivalent to a fasting glucose. Blood 07/11/2024 11:0 7 AM CDT 07/11/2024 12:06 PM CDT Grey Dykes MD LAB BLOOD ORDERABLES Final Result Performing Organization Address [facility] Co de Phone Number [facility] [address] [place] [address] * Albumin (07/11/2024 11:07 AM CDT) Pathologist [facility] Albumin 3.6 3.5 - 5.0 g/dL Blood 07/11/2024 11:0 7 AM CDT 07/11/2024 12:07 PM CDT Grey Dykes MD LAB BLOOD ORDERABLES Final Result Performing Organization Address [facility] Co de Phone Number [facility] [address] [place] [address] * Basic metabolic panel (07/11/2024 11:07 AM CDT) Pathologist [facility] Sodium 141 135 - 145 mmol/L Potassium, pl 3.7 3.3 - 4.9 mmol/L [facility] Chloride 106 97 - 110 mmol/L [facility] CO2 22 22 - 32 mmol/L [facility] Anion gap 13 2 - 15 mmol/L [facility] BUN 9 6 - 25 mg/dL [facility] Creatinine 1.09 0.80 - 1.30 mg/dL [place] Glucose 140 70 - 199 mg/dL [facility] Comment: Interpretive Data Fasting glucose >/= 126 [...] 07/11/2024 12:06 PM CDT us Kavitha Ramirez GLOVE FINISHER LAB BLOOD ORDERABLES Final Res ult [facility] [address] [address] Department [place] [address] * CT Chest Abdomen Pelvis W Contrast (10/11/2023 10:12 AM UTILIZATION REVIEW COORDINATOR) Anatomical Region Laterality Modality Body N/A Computed Tomogra phy 10/11/2023 11:0 3 AM UTILIZATION REVIEW COORDINATOR Impressions 10/11/2023 11:03 AM UTILIZATION REVIEW COORDINATOR A 12 x 12 mm pulmonary nodule in the lateral aspect of the right costophrenic sulcus, new since 2019, is suspicious for primary lung malignancy. Electronically signed by: Jayshree Giles MD, Ph.D Narrative 10/11/2023 11:03 AM UTILIZATION REVIEW COORDINATOR EXAMINATION: ??Computed tomography of chest/abdomen/pelvis with intravenous [...] by: Jayshree Giles MD, Ph.D Taylor Bland GLOVE FINISHER IMG CT PROCEDURES Final Result from Last 3 Months or Most Recently Relevant to Health Maintenance Insurance [employer] CHOICE MEDICARE PPO [employer] OOS MEDICARE [employer] CHOICE MEDICARE PPO IDPA Advance Directives For more information, please contact: [phone] Documents on File Type Date Recorded Patient Bottle Filler Expl anation ADVANCE DIRECTIVE 01/10/2024 3:33 PM LIVING WILL ADVANCE DIRECTIVE 01/10/2024 3:33 PM POWER OF DIRECTOR PHYSICAL THERAPY-MEDICAL * Full Code (Latest Code Status on [...] 5:17 PM 12/30/2019 5:42 PM Care Teams Broiler Manager Relationship Specialty Start Date End Date Wolfgang Serrano MD [address] [place] [address] PCP - General Family Medicine 08/03/24 Wolfgang Serrano MD [address] [place] [address] Family Medicine 08/03/24 Unknown, Notinfile 03/12/22 [place] [address] [address] 03/12/22 Chuy Enriquez MD [address] [place] [address] Consulting Physician Pulmonary Disease 10/13/23 Luis Felipe Cedillo MD [address] [place] [address] Consulting Physician Gastroenterology 10/13/23 Marlene Thornton MD [address] [place] [address] Surgeon Vascular Surgery 11/10/23
--- OUTSIDE RECORDS SUMMARY | 2024-10-11 02:58 | XMS_ITS | Encounter Summary ---
Author Organization [facility] Healthcare Address [address] [place] [address] Care Team Providers Care Cyber Defense Incident Responder Name Role Phone Wolfgang Serrano MD Primary Care Provider Unknown, Notinfile Unavailable Unavailable Santino Funk MD Unavailable [phone] Chuy Enriquez MD Unavailable Luis Felipe Cedillo MD Unavailable Marlene Thornton MD Unavailable Encounter Details Date Type Department Care Team (Late st Contact Info) Description 06/26/2024 11:59 PM CDT Anesthesia Event [facility] Operating Room [address] [place] [address] Jose A Romo, OFFSET PLATE PREPARATION SUPERVISOR [address] [address] Anesthesia Record Procedure Summary Procedure Name Responsible [...] doctor or pharmacy Sometimes 03/08/2024 [facility] Utilities Answer Date Recorded In the past 12 months has e [employer], gas, oil, or water company threatened to [...] any clubs o r organizations such as tenriism groups, unions, fraternal or athletic groups, or [...] Recorded Patient Health Questionnaire-2 Score 0 01/06/2024 [facility] of Occupat ional Health - Occupational Stress [...] file Legal Sex Male 3:25 PM MANAGER PHOTOGRAPHY Gender Identity Not on file Sexual Orientation [...] aneurysm (AAA)) - Pertinent negatives: CAD ; PA and DVT/PE Respiratory + Asthma Dyspnea frequency: [...] - back pain. + Chronic opioid use ([place]) - less than daily. + Osteoarthritis Comments: [...] as late effect of cerebrovascular accident (CVA) ([facility]) ([facility]) 03/21/2024 Primary osteoarthritis of left knee 12/29/2023 Moderate malnutrition ([facility]) 12/17/2023 Acute CVA (cerebrovascular accident) ([facility]) 12/07/2023 Infrarenal abdominal aortic aneurysm (AAA) without rupture ([facility]) 11/12/2023 Lung nodule 10/13/2023 Nocturnal cough 10/13/2023 Hiatal hernia 10/13/2023 Upper GI bleed 10/11/2023 Acquired hypothyroidism 10/11/2023 Acute blood loss anemia 10/11/2023 Coffee ground emesis 10/10/2023 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 05/18/2023 Biceps tendinitis of left upper extremity 05/18/2023 Tear of left glenoid labrum 05/18/2023 Hx of total knee replacement, right 12/01/2022 Neuropathy ([facility]) 12/01/2022 Idiopathic peripheral neuropathy Abnormality of gait and mobility Pain due to total right knee replacement ([facility]) 04/28/2022 Hamstring tendinitis of right thigh 04/28/2022 Quadriceps weakness 04/28/2022 Edema 04/04/2020 Intermittent claudication ([facility]) 04/04/2020 Iron deficiency anemia 04/04/2020 Peripheral vascular disease ([facility]) 04/04/2020 Goiter 12/05/2019 Subchondral insufficiency fracture of condyle of left femur ([facility]) ([facility]) 08/30/2018 Closed fracture of left tibial plateau [...] - (Added by TW Conv) Alzheimer's dementia ([facility]) Asthma Back pain Cataract Closed fracture of left tibial plateau with delayed healing Closed fracture of right tibial plateau with delayed healing Closed nondisplaced osteochondral fracture of left patella with delayed healing Closed osteochondral fracture of patella, right, with delayed healing, subsequent encounter Clotting disorder ([facility]) ([facility]) Complex tear of medial meniscus of left knee as current injury Complex tear of medial meniscus of right knee as current injury Cramps of lower extremity Diverticulitis of colon Easy bruisability Enlarged prostate Fatigue Frequent urination Gastroesophageal reflux disease GERD Hyperlipidemia Hypertension Hypothyroidism Incontinence of urine Muscle weakness Osteoarthritis Osteoarthritis Peptic ulcer Peptic ulcer disease Seizures ([facility]) 1997 last seizure in 1997 SOB (shortness of breath) on exertion Stroke ([facility]) 12/09/2023 left leg works ok, cannot use left arm Subchondral insufficiency fracture of condyle of left femur ([facility]) ([facility]) Vertigo Vision changes Visual disturbance hx of [...] Informed Consent: Discussed plan with attending and INSURANCE SALES EXECUTIVE. Anesthesia plan and risks discussed with patient. [...] [facility] Hospital Encounter [facility] Operating Room [address] [place] [address] [place] [address] [address] 10/23/2024 10:00 AM MANAGER PHOTOGRAPHY - 10/23/2024 1:00 PM [facility] Surgery [facility] Operating Room [address] [place] [address] [place] [address] [address] ARTHROPLASTY TOTAL KNEE LEFT Scheduled Procedures Name Priority Associated Diagnoses Date/Ti me ARTHROPLASTY TOTAL KNEE left knee osteoarthritis 10/23/2024 10:00 AM MANAGER PHOTOGRAPHY ESOPHAGOGASTRODUODENOSCOPY Dysphagia, unspecified type documented as of this encounter Visit Diagnoses Not on filedocumented in this encounter Care Teams Cyber Defense Incident Responder Relationship Specialty Start Date End Date Wolfgang Serrano MD PCP - General Family Medicine 05/05/23 08/02/24 Unknown, Notinfile 03/12/22 [place] [address] [facility] [address] [place] [address] 03/12/22 Chuy Enriquez MD [address] [facility] [address] [place] [address] Consulting Physician Pulmonary Disease 10/13/23 Luis Felipe Cedillo MD [address] [facility] [address], [place] [id number] Consulting Physician Gastroenterology 10/13/23 Marlene Thornton MD [address] [facility] [address], [place] [address] Surgeon Vascular Surgery 11/10/23 documented as of this encounter
--- OUTSIDE RECORDS SUMMARY | 2024-10-11 02:58 | XMS_ITS | Encounter Summary ---
Author Organization [facility] Healthcare Address [address] [place] [address] Care Team Providers Care Diamond Die Driller Name Role Phone Wolfgang Serrano MD Primary Care Provider Wolfgang Serrano MD Primary Care Provider Wolfgang Serrano MD Unavailable Unknown, Notinfile Unavailable Unavailable Santino Funk MD Unavailable [phone] Chuy Enriquez MD Unavailable Luis Felipe Cedillo MD Unavailable Marlene Thornton MD Unavailable Encounter Details Date Type Department Care Team (Late st Contact Info) Description 07/26/2024 Telephone [facility] Medical Group Orthopedics and Sports Medicine at [place] [id number] [facility] [address] [place] [phone] Grey Dykes MD [address] [place] [address] Social History Tobacco Use Types Packs/Day [...] materials from doctor or pharmacy Sometimes 03/08/2024 [facility] Utilities Answer Date Recorded In the [...] often do you attend chur ch or worship services? More than 4 times per year 12/16/2023 Do you belong to any clubs o r organizations such as evangelical groups, unions, fraternal or athletic groups, or [...] Recorded Patient Health Questionnaire-2 Score 0 01/06/2024 [facility] [place] of Occupat ional Health - Occupational Stress [...] in a senior living (including now)? No 12/16/2023 Personal Safety Answer Date Recorded Have you ever been in or are you currently in a harmful physical or emotional relationship or is someone making you feel afraid or unsafe? Denies 12/15/2023 Sex and Gender Information Value Date Recorded Sex Assigned at Not on file Legal Sex Male 3:25 PM STAFF PHYSICAL THERAPIST Gender Identity Not on file Sexual Orientation Not on file documented as of this encounter Miscellaneous Notes * Telephone Encounter - Alejandra Rubalcava - 07/26/2024 10:15 AM CDT Patient calling requesting return call regarding surgery documented in this encounter Plan of Treatment Upcoming Encounters Date Type Department Care Team (Latest Contact Info) Description 10/23/2024 10:00 AM STAFF PHYSICAL THERAPIST Hospital Encounter [facility] Operating Room [address] [place] [address] [place] [address] [facility] [address] [place] [address] 10/23/2024 10:00 AM STAFF PHYSICAL THERAPIST - 10/23/2024 1:00 PM STAFF PHYSICAL THERAPIST Surgery [facility] Operating Room [address] [place] [address] [place] [address] [facility] [address] [place] [address] ARTHROPLASTY TOTAL KNEE LEFT Scheduled Procedures Name Priority Associated Diagnoses Date/Ti me ARTHROPLASTY TOTAL KNEE left knee osteoarthritis 10/23/2024 10:00 AM STAFF PHYSICAL THERAPIST ESOPHAGOGASTRODUODENOSCOPY Dysphagia, unspecified type documented as of this encounter Visit Diagnoses Not on filedocumented in this encounter Care Teams Diamond Die Driller Relationship Specialty Start Date End Date Wolfgang Serrano MD PCP - General Family Medicine 05/05/23 08/02/24 Wolfgang Serrano MD [address] [address] PCP - General Family Medicine 08/03/24 Wolfgang Serrano MD Family Medicine 08/03/24 Unknown, Notinfile 03/12/[address] [place] [address] [facility] [address] [place] [address] 03/12/22 Chuy Enriquez MD [address] [facility] [address] [place] [address] Consulting Physician Pulmonary Disease 10/13/23 Luis Felipe Cedillo MD [address] [facility] [address] [address] Consulting Physician Gastroenterology 10/13/23 Marlene Thornton MD [address] [facility] [address] [address] Surgeon Vascular Surgery 11/10/23 documented as of this encounter
--- OUTSIDE RECORDS SUMMARY | 2024-10-11 02:58 | XMS_ITS | Encounter Summary ---
Author Organization [facility] Healthcare Address [address] [place] [address] Care Team Providers Care Mold Cutting Machine Operator Name Role Phone Wolfgang Serrano MD Primary Care Provider Unknown, Notinfile Unavailable Unavailable Santino Funk MD Unavailable Chuy Enriquez MD Unavailable Luis Felipe Cedillo MD Unavailable [phone] Marlene Thornton MD Unavailable Encounter Details Date Type Department Care Team (Latest Contact Info) Description 07/11/2024 10:45 AM CDT Pre-Admission Testing [facility] Pre Anesthesia Testing [address] [place] [address] Pre-op testing (Primary Dx); Arthritis [...] from doctor or pharmacy Sometimes 03/08/2024 [facility] Utilities Answer Date Recorded In [...] often do you attend chur ch or mu-ism services? More than 4 times per year [...] Questionnaire-2 Score 0 01/06/2024 [facility] of Occupat ional Health - Occupational Stress [...] file Legal Sex Male 3:25 PM MEDICAL RECORD CLERK Gender Identity Not on file Sexual Orientation Not on file documented as of this encounter Miscellaneous Notes * Perioperative Nursing Note - Madie Trujillo RN - 07/13/2024 3:22 PM CDT [employer] message sent to Dr Rivera: Preliminary urine culture report: culture results pending. Will send when available. Thank you. * Perioperative Nursing Note - Madie Trujillo RN - 07/11/2024 2:34 PM CDT [employer] message sent to Dr Rivera: Abnormal lab has been routed, urine specimen still pending (patient was unable to urinate during PAT, will return this week to provide specimen). Thank you. * Pre-Procedure Instructions - Madie Trujillo RN - 07/11/2024 10:45 AM CDT [facility] [address] [place] [address] We are pleased that you and your doctor have chosen [facility] for your surgery. We hope [...] clothing. Do not use perfume/cologne, make-up, nail angolan, lotions, oil/Vaseline, or powders on your skin. [...] insurance cards, and medication list (including all [id number] medications) with you. If you have an [...] Contact Info) Description 10/23/2024 10:00 AM MEDICAL RECORD CLERK Hospital Encounter [facility] Operating Room [address] [place] [address] [place] [address] [id number] 10/23/2024 10:00 AM MEDICAL RECORD CLERK - 10/23/2024 1:00 PM MEDICAL RECORD CLERK Surgery [facility] Operating Room [address] [place] [address] [place] [address] [id number] ARTHROPLASTY TOTAL KNEE LEFT Scheduled Procedures Name Priority Associated Diagnoses Date/Ti me ARTHROPLASTY TOTAL KNEE left knee osteoarthritis 10/23/2024 10:00 AM MEDICAL RECORD CLERK ESOPHAGOGASTRODUODENOSCOPY Dysphagia, unspecified type documented as [...] current clinical standards) Comment:Testing performed by : [facility], [address] [facility] [place]., [address] Organism (CLINICALLY INSIGNIFICANT GROWTH MARVIN FISHER Urine, clean voided 07/11/2024 11:07 AM CDT 07/12/2024 6:55 PM CDT Narrative MARVIN FISHER - 07/14/2024 9:46 AM CDT Urine culture reflexed based upon urinalysis results. Testing performed by [facility]biology Laboratory ([phone]) us Kavitha Ramirez NP LAB MICROBIOLOGY - GENERAL ORD ERABLES Final Result MARVIN FISHER [address] [place] [address] * (ABNORMAL) Urinalysis, microscopic only (07/11/2024 11:07 AM CDT) WBC, ur 21-50(A) 0 - 5 /HPF RBC, ur 3-5(A) 0 - 2 /HPF [facility] Epithelial cells, squamous, ur 1-5 0 - 5 /HPF [facility] Mucous, ur Present(A) CERNER Calcium oxalate crystals, ur 3+(A) CERNER Hyaline casts, ur 1-5 0 - 10 /LPF [facility] Culture Reflex Comment Reflex to urine culture will be performed. [facility] Urine, clean voided 07/11/2024 11:07 AM CDT 07/12/2024 1:49 PM CDT us Kavitha Ramirez MARINE OPERATIONS COORDINATOR LAB URINE ORDERABLES Final Res ult [facility] [address] [place] [address] * eGFR (07/11/2024 11:07 AM [...] ORDERABLES Final Res ult Performing Organization Address [facility] de Phone Number ANYDEE [phone] [place] [address] * Albumin (07/11/2024 11:07 AM CDT) Albumin 3.6 3.5 - 5.0 g/dL Blood 07/11/2024 11:0 7 AM CDT 07/11/2024 12:07 PM CDT Grey Dykes MD LAB BLOOD ORDERABLES Final Result Performing Organization Address [facility] Phone Number ANYDEE [phone] [place] [address] * (ABNORMAL) Hemoglobin A1c (07/11/2024 11:07 AM CDT) Hgb A1C 6.1(H) 4.0 - 5.6 % Estimated Average Glucose 128 mg/dL MARVIN FISHER Comment: The ADA recommends reporting an estimated Average Glucose (eAG) with all Hemoglobin A1c results using the equation derived from a study of 507 normal and diabetic adults. ??Minority populations were underrepresented and children were not included. ?? (Diabetes Care 31:6174-4983, 2008). ??The eAG is not equivalent to a fasting glucose. Blood 07/11/2024 11:0 7 AM CDT 07/11/2024 12:06 PM CDT Grey Dykes MD LAB BLOOD ORDERABLES Final Result Performing Organization Address [facility] [[email or web address]] Co de Phone Number ANYDEE [phone] [address] [facility] [place] [address] * Protein, total (07/11/2024 11:07 AM CDT) Protein, pl 6.7 6.5 - 8.5 g/dL Blood 07/11/2024 11:0 7 AM CDT 07/11/2024 12:07 PM CDT Grey Dykes MD LAB BLOOD ORDERABLES Final Result Performing Organization Address [facility] de Phone Number MARVIN [phone] [address] [place] [address] * Vitamin D 25 hydroxy (07/11/2024 11:07 AM CDT) Vitamin D 25-OH 56 30 - 80 ng/mL Blood 07/11/2024 11:0 7 AM CDT 07/11/2024 12:07 PM CDT Grey Dykes MD LAB BLOOD ORDERABLES Final Result Performing Organization Address [facility] de Phone Number MARVIN [phone] [address] Department [place] [address] * (ABNORMAL) Urinalysis reflex to microscopic and [...] for uric acid stone formation. Source: [facility] [employer] [facility] Current Interpretive Data was last revised on 2017 Protein, ur ql Negative Negative CERNER CH Glucose, ur ql Negative Negative [facility] CH Ketones, ur Negative Negative [facility] Bilirubin, ur Negative Negative [facility] Blood, ur Negative Negative [facility] Urobilinogen, ur <2.0 <2.0 mg/dL C[facility] CH Nitrite, ur Negative Negative [facility] Leukocyte esterase, ur 2+(A) Negative CERNER UA reflex comment Reflex to microscopic UA will be performed. [facility] Urine, clean voided 07/11/2024 11:07 AM CDT 07/12/2024 1:49 PM CDT Kavitha Ramirez NP LAB MICROBIOLOGY - GENERAL ORD ERABLES Final Result Performing Organization Address [facility] [[email or web address]] Co de Phone Number MARVIN [address] [address] Department of Laboratories [place], [place] [id number] * Type and screen (07/11/2024 11:07 AM CDT) Pathologist [facility] Sarah, indirect Negative ABO Rh O Negative [facility] Blood 07/11/2024 11:0 7 AM CDT 07/11/2024 12:06 PM CDT Narrative [facility] - 07/11/2024 12:49 PM CDT Is this test being ordered in advance for a procedure?->Yes Expected date of procedure:->07/24/24 Has the patient been transfused in the past 3 months?->Unknown Kavitha Ramirez NP LAB BLOOD BANK TEST ORDERABLES Final Result Performing Organization Address [facility] de Phone Number MARVIN FISHER [address] [address] [place] [address] * Basic metabolic panel (07/11/2024 11:07 AM CDT) Pathologist [facility] Sodium 141 135 - 145 mmol/L Potassium, pl 3.7 3.3 - 4.9 mmol/L [facility] Chloride 106 97 - 110 mmol/L [facility] CO2 22 22 - 32 mmol/L [facility] Anion gap 13 2 - 15 mmol/L [facility] BUN 9 6 - 25 mg/dL [facility] Creatinine 1.09 0.80 - 1.30 mg/dL [facility] Glucose 140 70 - 199 mg/dL [facility] Comment: Interpretive Data Fasting glucose >/= 126 [...] CDT 07/11/2024 12:06 PM CDT Kavitha Ramirez MARINE OPERATIONS COORDINATOR LAB BLOOD ORDERABLES Final Res ult MARVIN [address] [place] [address] documented in this encounter Visit Diagnoses Diagnosis Pre-op testing- Primary Unspecified pre-operative examination Arthritis of left knee Hypoglycemia Hypoglycemia, unspecified Vitamin D deficiency documented in this encounter Care Teams Mold Cutting Machine Operator Relationship Specialty Start Date End Date Wolfgang Serrano MD PCP - General Family Medicine 05/05/23 08/02/24 Unknown, Notinfile 03/12/22 [place] [address] [facility] [address] [place] [address] 03/12/22 Chuy Enriquez MD [address] [facility] [address] [place] [address] Consulting Physician Pulmonary Disease 10/13/23 Luis Felipe Cedillo MD [address] [place] [address] Consulting Physician Gastroenterology 10/13/23 Marlene Thornton MD [address] [place] [address] Surgeon Vascular Surgery 11/10/23 documented as of this encounter
--- OUTSIDE RECORDS SUMMARY | 2024-10-11 02:58 | XMS_ITS | Encounter Summary ---
Author Organization [facility] Address [address] [facility] [address] [place] [address] Phone Care Team Providers Care Clinical Athletic Instructor Name Role Phone Wolfgang Serrano MD Primary Care Provider [phone] Unknown, Notinfile Unavailable Unavailable Santino Funk MD Unavailable [phone] Chuy Enriquez MD Unavailable [phone] Luis Felipe Cedillo MD Unavailable Marlene Thornton MD Unavailable Reason for Visit * Consultation (Routine) - Closed Specialty Diagnoses / Procedures Referred By Contac t Referred To Contact Neurology Diagnoses Cerebrovascular accident (CVA), unspecified mechanism (HCC) Kostas Joshi MD [address] [facility] [place] [address] Phone: tel: fax: [facility] Stroke [address] [facility] [address] [place] [address] Phone: tel: fax: Referral ID Status Reason Start Date Expiration Date V isits Requested Visits Authorized [id number] Closed Specialty Services Required 04/20/2024 05/20/2025 1 1 Encounter Details Date Type Department Care Team (Late st Contact Info) Description 07/12/2024 8:00 AM CDT Office Visit [facility] Stroke [address] [facility] [address] [place] [address] Gomez Reddy MD [address] [facility] [address] [place] [address] Cerebrovascular accident (CVA), unspecified mechanism (HCC) Social [...] materials from doctor or pharmacy Sometimes 03/08/2024 [facility] Utilities Answer Date Recorded In the past 12 months has e [employer], gas, oil, or water [employer] threatened to shut off services in your [...] often do you attend chur ch or rastafarian services? More than 4 times per year [...] Recorded Patient Health Questionnaire-2 Score 0 01/06/2024 [facility] of Occupat ional Health - Occupational Stress [...] on file Legal Sex Male 3:25 PM CONTRACT ATTORNEY Gender Identity Not on file Sexual Orientation [...] with delayed healing, subsequent encounter Clotting disorder ([facility]) ([facility]) Complex tear of medial [...] SOB (shortness of breath) on exertion Stroke ([facility]) 12/09/2023 left leg works ok, cannot use left arm Subchondral insufficiency fracture of condyle of left femur ([facility]) Vertigo Vision changes Visual [...] Orbiting (check the weak arm) Draw a pit river with your leg Power testing specifically in [...] face) Gait and Coordination No dysmetria on vtlwrn-qsla-fayxhq/ heel-hodges testing Patient uses a cane for [...] the current degree of hemiparesis. Stroke Phenotype (member services representative neuro-images): Stroke Etiology: Small vessel disease Secondary [...] (Latest Contact Info) Description 10/23/2024 10:00 AM CONTRACT ATTORNEY Hospital Encounter [facility] Operating Room [address] [place] [address] [place] [address] [address] [address] 10/23/2024 10:00 AM CONTRACT ATTORNEY - 10/23/2024 1:00 PM CONTRACT ATTORNEY Surgery [facility] Operating Room [address] [place] [address] [place] [address] [address] ARTHROPLASTY TOTAL KNEE LEFT Scheduled Procedures Name Priority Associated Diagnoses Date/Ti me ARTHROPLASTY TOTAL KNEE left knee osteoarthritis 10/23/2024 10:00 AM CONTRACT ATTORNEY ESOPHAGOGASTRODUODENOSCOPY Dysphagia, unspecified type documented as of this encounter Visit Diagnoses Diagnosis Cerebrovascular accident (CVA), unspecified mechanism (HCC) documented in this encounter Orders Outpatient Referral Count Last Ordered Date Fir st Ordered Date AMB REFERRAL TO NEUROLOGY 1 07/12/2024 documented in this encounter Care Teams Clinical Athletic Instructor Relationship Specialty Start Date End Date Wolfgang Serrano MD PCP - General Family Medicine 05/05/23 08/02/24 Unknown, Notinfile 03/12/22 [place] [address] [address] [facility] [address] [place] [address] 03/12/22 Chuy Enriquez MD [address] [facility] [address] [place] [address] Consulting Physician Pulmonary Disease 10/13/23 Luis Felipe Cedillo MD [address] [facility] [facility] [address], [place] [id number] Consulting Physician Gastroenterology 10/13/23 Marlene Thornton MD [address] [facility] [address], [place] [address] Surgeon Vascular Surgery 11/10/23 documented as of this encounter
--- OUTSIDE RECORDS SUMMARY | 2024-10-11 02:58 | XMS_ITS | Encounter Summary ---
Author Organization [facility] Healthcare Address [address] [place] [address] Care Team Providers Care Electric Train Driver Name Role Phone Wolfgang Serrano MD Primary Care Provider Unknown, Notinfile Unavailable Unavailable Santino Funk MD Unavailable Chuy Enriquez MD Unavailable Luis Felipe Cedillo MD Unavailable [phone] Marlene Thornton MD Unavailable Encounter Details Date Type Department Care Team (Late st Contact Info) Description 07/17/2024 Orders Only [facility] Medical Group Orthopedics and Sports Medicine at [facility] [address] [facility] [address] [place] [phone] Carol Aceves PA [address] [place] [id number] Social History Tobacco Use Types Packs/Day [...] doctor or pharmacy Sometimes 03/08/2024 [facility] Utilities Answer Date Recorded In [...] often do you attend chur ch or christianity services? More than 4 times per year [...] Score 0 01/06/2024 [facility] of Occupat ional Health - Occupational Stress [...] on file Legal Sex Male 3:25 PM SPIRAL GEAR GENERATOR Gender Identity Not on file Sexual Orientation [...] full. I sent a message through his [employer] regarding his antibiotics but I have called into his pharmacy. Hopefully, he will get this started today. documented in this encounter Plan of Treatment Upcoming Encounters Date Type Department Care Team (Latest Contact Info) Description 10/23/2024 10:00 AM SPIRAL GEAR GENERATOR Hospital Encounter [facility] Operating Room [address] [place] [address] [place] [address] [facility] [address] [place], [place] [id number] 10/23/2024 10:00 AM SPIRAL GEAR GENERATOR - 10/23/2024 1:00 PM SPIRAL GEAR GENERATOR Surgery [facility] Operating Room [address] [place] [address] [place] [address] [id number] ARTHROPLASTY TOTAL KNEE LEFT Scheduled Procedures Name Priority Associated Diagnoses Date/Ti me ARTHROPLASTY TOTAL KNEE left knee osteoarthritis 10/23/2024 10:00 AM SPIRAL GEAR GENERATOR ESOPHAGOGASTRODUODENOSCOPY Dysphagia, unspecified type documented as of this encounter Visit Diagnoses Not on filedocumented in this encounter Care Teams Electric Train Driver Relationship Specialty Start Date End Date Wolfgang Serrano MD PCP - General Family Medicine 05/05/23 08/02/24 Unknown, Notinfile 03/12/22 [place] [address] [facility] [address] [place] [address] 03/12/22 Chuy Enriquez MD [address] [facility] [address] [place] [address] Consulting Physician Pulmonary Disease 10/13/23 Luis Felipe Cedillo MD [address] [facility] [address] [place] [address] Consulting Physician Gastroenterology 10/13/23 Marlene Thornton MD [address] [place] [address] Surgeon Vascular Surgery 11/10/23 documented as of this encounter
--- OUTSIDE RECORDS SUMMARY | 2024-10-11 02:58 | XMS_ITS | Encounter Summary ---
Author Organization [facility] Healthcare Address [address] [place] [address] Care Team Providers Care Plastics Scientist Name Role Phone Wolfgang Serrano MD Primary Care Provider Unknown, Notinfile Unavailable Unavailable Santino Funk MD Unavailable Chuy Enriquez MD Unavailable [phone] Luis Felipe Cedillo MD Unavailable Marlene Thornton MD Unavailable Encounter Details Date Type Department Care Team (Late st Contact Info) Description 07/14/2024 Documentation [facility] Pre Anesthesia Testing [address] [place] [address] Madie Trujillo RN Social History [...] materials from doctor or pharmacy Sometimes 03/08/2024 [facility] Utilities [...] Recorded Patient Health Questionnaire-2 Score 0 01/06/2024 [facility] [place] of Occupat ional Health - Occupational Stress [...] on file Legal Sex Male 3:25 PM TRADER FIXED INCOME Gender Identity Not on file Sexual Orientation [...] (Latest Contact Info) Description 10/23/2024 10:00 AM TRADER FIXED INCOME Hospital Encounter [facility] Operating Room [address] [place] [address] [place] [address] [address] 10/23/2024 10:00 AM TRADER FIXED INCOME - 10/23/2024 1:00 PM TRADER FIXED INCOME Surgery [facility] Operating Room [address] [place] [address] [place] [address] [facility] [address] [place] [address] ARTHROPLASTY TOTAL KNEE LEFT Scheduled Procedures Name Priority Associated Diagnoses Date/Ti me ARTHROPLASTY TOTAL KNEE left knee osteoarthritis 10/23/2024 10:00 AM TRADER FIXED INCOME ESOPHAGOGASTRODUODENOSCOPY Dysphagia, unspecified type documented as of this encounter Visit Diagnoses Not on filedocumented in this encounter Care Teams Plastics Scientist Relationship Specialty Start Date End Date Wolfgang Serrano MD PCP - General Family Medicine 05/05/23 08/02/24 Unknown, Notinfile 03/12/22 [place] [address] [facility] [address] [place] [address] 03/12/22 Chuy Enriquez MD [address] [facility] [address] [place] [address] Consulting Physician Pulmonary Disease 10/13/23 Luis Felipe Cedillo MD [address] [facility] [address] [place] [address] Consulting Physician Gastroenterology 10/13/23 Marlene Thornton MD [address] [facility] [address], [place] [address] Surgeon Vascular Surgery 11/10/23 documented as of this encounter
--- OUTSIDE RECORDS SUMMARY | 2024-10-11 02:58 | XMS_ITS | Encounter Summary ---
Author Organization [facility] Healthcare Address [address] [place] [address] Care Team Providers Care Heavy Duty Truck Mechanic Name Role Phone Wolfgang Serrano MD Primary Care Provider [phone] Wolfgang Serrano MD Unavailable [phone] Unknown, Notinfile Unavailable Unavailable Santino Funk MD Unavailable Chuy Enriquez MD Unavailable Luis Felipe Cedillo MD Unavailable Marlene Thornton MD Unavailable [phone] Reason for Visit * Reason Onset Date Comments PMC Intake Assessment 08/30/2024 Encounter Details Date Type Department Care Team (Late st Contact Info) Description 08/30/2024 Telephone [facility] at [facility] [address] [facility] [address], [address] [place] [address] Laly Shi, RN [facility] Intake Assessment Social History Tobacco Use [...] materials from doctor or pharmacy Sometimes 03/08/2024 [facility] Utilities Answer Date Recorded In the past 12 months has e [employer], gas, oil, or water company threatened to [...] Recorded Patient Health Questionnaire-2 Score 0 01/06/2024 [facility] [place] of Occupat ional Health - Occupational Stress [...] on file Legal Sex Male 3:25 PM IRON INSTALLER Gender Identity Not on file Sexual Orientation Not on file documented as of this encounter Miscellaneous Notes * Telephone Encounter - Laly Shi RN - 08/30/2024 11:41 AM IRON INSTALLER lvm INSTALLER documented in this encounter Plan of Treatment Upcoming Encounters Date Type Department Care Team (Latest Contact Info) Description 10/23/2024 10:00 AM IRON INSTALLER Hospital Encounter [facility] Operating Room [address] [place] [address] [place] [address] [address] 10/23/2024 10:00 AM IRON INSTALLER - 10/23/2024 1:00 PM IRON INSTALLER Surgery [facility] Operating Room [address] [place] [address] [place] [address] [facility] [address] [place] [address] ARTHROPLASTY TOTAL KNEE LEFT Scheduled Procedures Name Priority Associated Diagnoses Date/Ti me ARTHROPLASTY TOTAL KNEE left knee osteoarthritis 10/23/2024 10:00 AM IRON INSTALLER ESOPHAGOGASTRODUODENOSCOPY Dysphagia, unspecified type documented as of this encounter Visit Diagnoses Not on filedocumented in this encounter Care Teams Heavy Duty Truck Mechanic Relationship Specialty Start Date End Date Wolfgang Serrano MD [address] [place] [address] PCP - General Family Medicine 08/03/24 Wolfgang Serrano MD [address] [place] [address] Family Medicine 08/03/24 Unknown, Notinfile 03/12/22 [place] [address] [facility] [address] [place] [address] 03/12/22 Chuy Enriquez MD [address] [place] [address] Consulting Physician Pulmonary Disease 10/13/23 Luis Felipe Cedillo MD [address] [place] [address] Consulting Physician Gastroenterology 10/13/23 Marlene Thornton MD [address] [facility] [address] [place] [address] Surgeon Vascular Surgery 11/10/23 documented as of this encounter
--- OUTSIDE RECORDS SUMMARY | 2024-10-11 02:58 | XMS_ITS | Encounter Summary ---
Author Organization [facility] Healthcare Address [address] [place] [address] Care Team Providers Care Shop Girl Name Role Phone Wolfgang Serrano MD Primary Care Provider Unknown, Notinfile Unavailable Unavailable Santino Funk MD Unavailable Chuy Enriquez MD Unavailable Luis Felipe Cedillo MD Unavailable Marlene Thornton MD Unavailable Reason for Visit * Auth/Cert (Routine) Specialty Diagnoses / Procedures Referred By Contac t Referred To Contact Diagnoses Primary osteoarthritis of left knee Primary osteoarthritis of left knee [M17.12] Procedures [place] ARTHRP KNE CONDYLE&PLATU MEDIAL&LAT COMPARTMENTS ARTHROPLASTY LEFT TOTAL KNEE/180MIN Referral ID Status Reason Start Date Expiration Date Visits Re quested Visits Authorized [id number] 1 1 Encounter Details Date Type Department Care Team (Latest Contact Info) Description 07/24/2024 8:33 AM CDT - 07/24/2024 9:31 AM CDT Hospital Encounter [facility] Operating Room [address] [place] [address] [place] [address] [address] Discharge Disposition: Discharge to home [...] doctor or pharmacy Sometimes 03/08/2024 [facility] Utilities Answer Date Recorded In the past [...] 01/06/2024 [facility] of Occupat ional [facility] - Occupational Stress Questionnaire Answer Date [...] file Legal 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 Unfortunately he did not excelsior picker his message to treat this with [...] surgery will be rescheduled Grey Dykes MD [facility] [phone] 07/24/2024 2:01 PM documented in this encounter [...] Contact Info) Description 10/23/2024 10:00 AM DIESEL POWERPLANT MECHANIC Hospital Encounter [facility] Operating Room [address] [place] [address] [place] [address] [address] 10/23/2024 10:00 AM DIESEL POWERPLANT MECHANIC - 10/23/2024 1:00 PM [facility] Surgery [facility] Operating Room [address] [place] [address] [place] [address] [facility] [address] [place] [address] ARTHROPLASTY TOTAL KNEE LEFT Scheduled Procedures Name Priority Associated Diagnoses Date/Ti me ARTHROPLASTY TOTAL KNEE left knee osteoarthritis 10/23/2024 10:00 AM DIESEL POWERPLANT MECHANIC ESOPHAGOGASTRODUODENOSCOPY Dysphagia, unspecified type documented as [...] 07/11 documented in this encounter Care Teams Shop Girl Relationship Specialty Start Date End Date Wolfgang Serrano MD PCP - General Family Medicine 05/05/23 08/02/24 Unknown, Notinfile 03/12/22 [place] [address] [facility] [address] [place] [address] 03/12/22 Chuy Enriquez MD [address] [facility] [address] [place] [address] Consulting Physician Pulmonary Disease 10/13/23 Luis Felipe Cedillo MD [address] [facility] [address], [place] [address] Consulting Physician Gastroenterology 10/13/23 Marlene Thornton MD [address] [facility] [address], [place] [address] Surgeon Vascular Surgery 11/10/23 documented as of this encounter
--- OUTSIDE RECORDS SUMMARY | 2024-10-11 02:59 | XMS_ITS | Encounter Summary ---
Author Organization [facility] Healthcare Address [address] [place] [address] Care Team Providers Care Child Development Teacher Name Role Phone Wolfgang Serrano MD Primary Care Provider [phone] Unknown, Notinfile Unavailable Unavailable Santino Funk MD Unavailable Chuy Enriquez MD Unavailable [phone] Luis Felipe Cedillo MD Unavailable Marlene Thornton MD Unavailable Reason for Visit * Auth/Cert (Routine) Specialty Diagnoses / Procedures Referred By Contac t Referred To Contact Referral ID Status Reason Start Date Expiration Date Visits Re quested Visits Authorized [id number] 1 60 Encounter Details Date Type Department Care Team (Late st Contact Info) Description 03/01/2024 Home Care Visit [facility] [address] [place] [address] Trini Campuzano RN SN TRIAGE ENCOUNTER Social [...] from doctor or pharmacy Sometimes 01/09/[address] 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 Spoke with Abrahan. Requested ETA for today's visit. Follow-up: Notified CM, CT, and distribution operations supervisor. Requested follow up with Abrahan regarding the visit ETA. Sender: [employer] [facility] Received: 03/01/2024 10:01 AM Subject: Acct [id number] Home Care Message: ABRAHAN GTZ [phone] C [id number] RE: WHAT TIME WILL THE THERAPIST BE HERE documented in this encounter Plan of Treatment Upcoming Encounters Date Type Department Care Team (Latest Contact Info) Description 10/23/2024 10:00 AM MEDICAL VOUCHER CLERK Hospital Encounter [facility] Operating Room [address] [place] [address] [place] [address] [address] 10/23/2024 10:00 AM MEDICAL VOUCHER CLERK - 10/23/2024 1:00 PM MEDICAL VOUCHER CLERK Surgery [facility] Operating Room [address] [place] [address] [place] [address] [address] ARTHROPLASTY TOTAL KNEE LEFT Scheduled Procedures Name Priority Associated Diagnoses Date/Ti me ARTHROPLASTY TOTAL KNEE left knee osteoarthritis 10/23/2024 10:00 AM MEDICAL VOUCHER CLERK ESOPHAGOGASTRODUODENOSCOPY Dysphagia, unspecified type documented as of this encounter Visit Diagnoses Not on filedocumented in this encounter Home Health Visit - Care Plan Visit Details Visit Type -SN Triage Encoun ter Discipline -Shelter Problems Problem Description Start Date Status Goals Interventions Homebound Status Disciplines: Skilled Disciplines Patient's homebound status 01/09/2024 Active 1 goal linked to scheduled/docume nted intervention 1 goal intervention scheduled/documen ana in this visit Monitor patient's vital signs every home health visit Disciplines: SN, PT, OT, ORNAMENT SETTER, MEDICAL DIRECTOR OF HOSPICE, Skilled Disciplines Monitor patient's vital signs every [...] visit during episode of care Description: Home grape pruner to measure vital signs during every home [...] Scheduled documented in this encounter Care Teams Child Development Teacher Relationship Specialty Start Date End Date Wolfgang Serrano MD PCP - General Family Medicine 05/05/23 08/02/24 Unknown, Notinfile 03/12/22 [place] [address] [facility] [address] [place] [address] 03/12/22 Chuy Enriquez MD [address] [facility] [address] [place] [address] Consulting Physician Pulmonary Disease 10/13/23 Luis Felipe Cedillo MD [address] [facility] [address] [place] [address] Consulting Physician Gastroenterology 10/13/23 Marlene Thornton MD [address] [facility] [address], [place] [address] Surgeon Vascular Surgery 11/10/23 documented as of this encounter
--- OUTSIDE RECORDS SUMMARY | 2024-10-11 02:59 | XMS_ITS | Encounter Summary ---
Author Organization [facility] Healthcare Address [address] [place] [address] Care Team Providers Care Program Project Analyst Name Role Phone Wolfgang Serrano MD Primary Care Provider [phone] Unknown, Notinfile Unavailable Unavailable Santino Funk MD Unavailable Chuy Enriquez MD Unavailable Luis Felipe Cedillo MD Unavailable [phone] Marlene Thornton MD Unavailable Reason for Visit * Auth/Cert (Routine) Specialty Diagnoses / Procedures Referred By Contac t Referred To Contact Referral ID Status Reason Start Date Expiration Date Visits Re quested Visits Authorized [id number] 1 60 Encounter Details Date Type Department Care Team (Late st Contact Info) Description 03/03/2024 11:00 AM CDT Home Care Visit [facility] [place] [address] [address] [place] [address] Anjelica Winter, OPHTHALMIC SURGICAL ASSISTANT OPHTHALMIC SURGICAL ASSISTANT REASSESSMENT Social History Tobacco Use Types Packs/Day [...] materials from doctor or pharmacy Sometimes 01/09/2024 [facility] Utilities Answer Date Recorded In the past 12 months has e [employer], gas, oil, or water company threatened to [...] often do you attend chur ch or latter day services? More than 4 times per year [...] Recorded Patient Health Questionnaire-2 Score 0 01/06/2024 [facility] [place] of Occupat ional Health - Occupational Stress [...] on file Legal Sex Male 3:25 PM RECRUITMENT INTERNSHIP Gender Identity Not on file Sexual Orientation [...] (Latest Contact Info) Description 10/23/2024 10:00 AM RECRUITMENT INTERNSHIP Hospital Encounter [facility] Operating Room [address] [place] [address] [place] [address] [address] 10/23/2024 10:00 AM RECRUITMENT INTERNSHIP - 10/23/2024 1:00 PM RECRUITMENT INTERNSHIP Surgery [facility] Operating Room [address] [place] [address] [place] [address] [address] ARTHROPLASTY TOTAL KNEE LEFT Scheduled Procedures Name Priority Associated Diagnoses Date/Ti me ARTHROPLASTY TOTAL KNEE left knee osteoarthritis 10/23/2024 10:00 AM RECRUITMENT INTERNSHIP ESOPHAGOGASTRODUODENOSCOPY Dysphagia, unspecified type documented as of this encounter Visit Diagnoses Not on filedocumented in this encounter Home Health Visit - Care Plan Visit Details Visit Type -OPHTHALMIC SURGICAL ASSISTANT Reassessment Discipline -Speech Language Pathology Problems Problem Description Start Date Status Goals Interventions Homebound Status Disciplines: Skilled Disciplines Patient's homebound status 01/09/2024 Active 1 goal linked to scheduled/documen ana intervention 1 goal intervention scheduled/docume nted in this visit Monitor patient's vital signs every home health visit Disciplines: SN, PT, OT, OPHTHALMIC SURGICAL ASSISTANT, BATCH AND FURNACE OPERATOR, Skilled Disciplines Monitor patient's vital signs [...] goal interventions scheduled/docume nted in this visit OPHTHALMIC SURGICAL ASSISTANT Impaired Swallowing Disciplines: Speech Language Pathology Impaired swallow with oral phase dysphagia 01/14/2024 Active 1 goal linked to scheduled/documen ana intervention 2 problem interventions scheduled/docume nted in this visit Instruct/evalua te cognitive function Disciplines: Speech Language Pathology Review patient's current cognitive status and create management plan 01/14/2024 Active 1 goal linked to scheduled/documen ana intervention 1 problem intervention scheduled/docume nted in this visit OPHTHALMIC SURGICAL ASSISTANT oral motor problems Disciplines: Speech Language Pathology [...] during episode of care Description: Home clinical lab technologist to measure vital signs during every home [...] goal, extend goal meet date to 03/08/2024. OPHTHALMIC SURGICAL ASSISTANT Impaired Swallowing Met Yes Cognitive Status - Reassess Description: Patient will improve MOCA score to 26/30 by 02/12/2024. Patient making functional progress towards goal, extend goal meet date to 03/08/2024. Instruct/evaluate cognitive function Met Yes Improvement with articulation/intelligibilit y Description: Patient will demonstrate improved articulation/intelligibilit y at sentence level by 03/08/2024. OPHTHALMIC SURGICAL ASSISTANT oral motor problems Progressing No Performance with HEP Description: Patient/caregiver to be independent with progressed HEP by therapy discharge. OPHTHALMIC SURGICAL ASSISTANT oral motor problems Met Yes Interventions Intervention [...] (HEP) Description: Instruct patient/caregiver and perform HEP. Problem:OPHTHALMIC SURGICAL ASSISTANT Impaired Swallowing Completed Review and continued development of HEP for oral motor exercises with patient and patient caregiver demonstrating comprehension and ability to complete independently. Instruct on swallowing exercises Description: Teach swallow exercises Problem:OPHTHALMIC SURGICAL ASSISTANT Impaired Swallowing Completed Review of oral motor Assess cognitive status Description: Assess and/or reassess cognitive status. Problem:Instruct/melinda petit cognitive function Completed MOCA completed this date with score of 23/30 indicating mild cognitive decline, which is an improvement from initial OPHTHALMIC SURGICAL ASSISTANT evaluation. Home Exercise Program (HEP) Description: Instruct patient/caregiver and perform HEP. Problem:OPHTHALMIC SURGICAL ASSISTANT oral motor problems Completed Review and continued development of HEP for intelligibility with patient and patient caregiver demonstrating comprehension and ability to complete independently. OPHTHALMIC SURGICAL ASSISTANT speech articulation disorder treatments Description: Therapeutic exercise Problem:OPHTHALMIC SURGICAL ASSISTANT oral motor problems Completed Review of intelligibility strategies including decreased rate, overarticulation (exaggerate your mouth movements), spacing and phrasing (space out your words) with patient demonstrating comprehension. Patient reports he has been practicing using intelligibility strategies on his own by reading out loud. documented in this encounter Care Teams Program Project Analyst Relationship Specialty Start Date End Date Wolfgang Serrano MD PCP - General Family Medicine 05/05/23 08/02/24 Unknown, Notinfile 03/12/22 [place] [address] [facility] [address] [place] [address] 03/12/22 Chuy Enriquez MD [address] [place] [address] Consulting Physician Pulmonary Disease 10/13/23 Luis Felipe Cedillo MD [address] [place] [address] Consulting Physician Gastroenterology 10/13/23 Marlene Thornton MD [address] [place] [address] Surgeon Vascular Surgery 11/10/23 documented as of this encounter
--- OUTSIDE RECORDS SUMMARY | 2024-10-11 02:59 | XMS_ITS | Encounter Summary ---
Author Organization [facility] Healthcare Address [address] [place] [address] Care Team Providers Care Special Education Teaching Assistant Name Role Phone Wolfgang Serrano MD Primary Care Provider Unknown, Notinfile Unavailable Unavailable Santino Funk MD Unavailable Chuy Enriquez MD Unavailable [phone] Luis Felipe Cedillo MD Unavailable Marlene Thornton MD Unavailable Reason for Referral * Procedure (Routine) - Authorized Specialty Diagnoses / Procedures Referred By Contac t Referred To Contact Diagnoses Biceps tendinitis of left upper extremity Hemiparesis affecting left side as late effect of cerebrovascular accident (CVA) (CMS/HCC) ([facility]) Procedures Large Joint (Hip, Knee, Shoulder) Injection: [place] [address] [address] Phone: tel: fax: [facility] Referral ID Status Reason Start Date Expiration Date V isits Requested Visits Authorized [id number] Authorized 03/21/2024 04/20/2025 1 1 * Procedure (Routine) - Authorized Specialty Diagnoses / Procedures Referred By Contac t Referred To Contact Diagnoses Primary osteoarthritis of both knees Procedures Large Joint (Hip, Knee, Shoulder) [place]: [place] [address] [address] Phone: tel: fax: [facility] Referral ID Status Reason Start Date Expiration Date V isits Requested Visits Authorized [id number] Authorized 03/21/2024 04/20/2025 1 1 Reason for Visit * Reason Comments Follow-up Injections Injections Encounter Details Date Type Department Care Team (Latest Contact Info) Description 03/21/2024 8:30 AM CDT Office Visit [facility] Orthopedics and Sports Medicine at [address] [address] [place] [id number] [place], [place] [id number] Primary osteoarthritis of both knees (Primary Dx); Hx of total knee replacement, right; Biceps tendinitis of left upper extremity; Hemiparesis affecting left side as late effect of cerebrovascular accident (CVA) (CMS/[facility]ERLY [facility]) ([facility]) Social History Tobacco Use Types Packs/Day Years [...] from doctor or pharmacy Sometimes 03/08/2024 [facility] Utilities Answer Date Recorded In the past 12 months has e [employer], gas, oil, or water [employer] threatened to shut off services in your [...] Recorded Patient Health Questionnaire-2 Score 0 01/06/2024 [employer] of Occupat ional Health - Occupational Stress [...] on file Legal Sex Male 3: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 Gender Identity Not on file Sexual Orientation [...] as late effect of cerebrovascular accident (CVA) ([facility])([facility]) FOLLOW UP VISIT Subjective CHIEF COMPLAINT He [...] as late effect of cerebrovascular accident (CVA) ([facility]) ([facility]) Large Joint (Hip, Knee, Shoulder) Injection: L [...] (Latest Contact Info) Description 10/23/2024 10:00 AM HEALTH 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 Hospital Encounter [facility] Operating Room [address] [place] [address] [place] [address] [address] 10/23/2024 10:00 AM HEALTH 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 - 10/23/2024 1:00 PM HEALTH 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 Surgery [facility] Operating Room [address] [place] [address] [place] [address] [address] ARTHROPLASTY TOTAL KNEE LEFT Scheduled Procedures Name Priority Associated Diagnoses Date/Ti me ARTHROPLASTY TOTAL KNEE left knee osteoarthritis 10/23/2024 10:00 AM HEALTH 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 ESOPHAGOGASTRODUODENOSCOPY Dysphagia, unspecified type documented as of this encounter Procedures Procedure Name Priority Date/Time Associated Diagnosis Comments [place] ARTHROCENTESIS ASPIR&/INJ MAJOR JT/BURSA W/O US Routine 03/21/2024 8:30 AM CDT Biceps tendinitis of left upper extremity Hemiparesis affecting left side as late effect of cerebrovascular accident (CVA) ([facility]/HCC) (HCC) [place] ARTHROCENTESIS ASPIR&/INJ MAJOR JT/BURSA W/O US Routine 03/21/2024 8:30 AM CDT Primary osteoarthritis of both knees documented in this encounter Results * NH ARTHROCENTESIS ASPIR&/INJ MAJOR JT/BURSA W/O US (03/21/2024 [...] IN CLINIC/BEDSIDE ORDERAB LES Final Result * [place] ARTHROCENTESIS ASPIR&/INJ MAJOR JT/BURSA W/O US (03/21/2024 [...] as late effect of cerebrovascular accident (CVA) (CMS/[facility]) ([facility]) documented in this encounter Administered Medications Inactive [...] as late effect of cerebrovascular accident (CVA) (CMS/[facility]ER[facility]) ([facility]) Given 03/21/2024 8:30 AM CDT 80 mg Left Shoulder documented in this encounter Historical Medications * This list may reflect changes made after this encounter. cyclobenzaprine (FLEXERIL) 5 mg tablet Take 1 tablet (5 mg total) by mouth 3 (three) times a day as needed 02/24/2024 added in this encounter Care Teams Special Education Teaching Assistant Relationship Specialty Start Date End Date Wolfgang Serrano MD PCP - General Family Medicine 05/05/23 08/02/24 Unknown, Notinfile 03/12/22 [place] [address] [facility] [address] [place] [address] 03/12/22 Chuy Enriquez MD [address] [facility] [address] [place] [address] Consulting Physician Pulmonary Disease 10/13/23 Luis Felipe Cedillo MD [address] [facility] [address] [place] [address] Consulting Physician Gastroenterology 10/13/23 Marlene Thornton MD [address] [facility] [address] [place] [address] Surgeon Vascular Surgery 11/10/23 documented as of this encounter
--- OUTSIDE RECORDS SUMMARY | 2024-10-11 02:59 | XMS_ITS | Encounter Summary ---
Author Organization [facility] Healthcare Address [address] [place] [address] Care Team Providers Care Locker Room Attendant Name Role Phone Wolfgang Serrano MD Primary Care Provider Unknown, Notinfile Unavailable Unavailable Santino Funk MD Unavailable Chuy Enriquez MD Unavailable Luis Felipe Cedillo MD Unavailable [phone] Marlene Thornton MD Unavailable Encounter Details Date Type Department Care Team (Late st Contact Info) Description 06/16/2024 Documentation [facility] Pre Anesthesia Testing [address] [place] [address] Madie Trujillo RN Social History [...] doctor or pharmacy Sometimes 03/08/2024 [facility] Utilities Answer Date [...] any clubs o r organizations such as confucianist groups, unions, fraternal or athletic groups, or [...] Patient Health Questionnaire-2 Score 0 01/06/2024 [facility] [place] of Occupat ional Health - Occupational Stress [...] on file Legal Sex Male 3:25 PM UNDERWRITING ASSISTANT Gender Identity Not on file Sexual Orientation Not on file documented as of this encounter Miscellaneous Notes * Perioperative Nursing Note - Madie Trujillo, MARAH - 06/16/2024 4:58 PM CDT [employer] message sent to Dr Lazo: Final urine culture report: clinically insignificant growth documented in this encounter Plan of Treatment Upcoming Encounters Date Type Department Care Team (Latest Contact Info) Description 10/23/2024 10:00 AM UNDERWRITING ASSISTANT Hospital Encounter [facility] Operating Room [address] [place] [address] [place] [address] [facility] [address] [place], [place] [id number] 10/23/2024 10:00 AM UNDERWRITING ASSISTANT - 10/23/2024 1:00 PM UNDERWRITING ASSISTANT Surgery [facility] Operating Room [address] [place] [address] [place] [address] [facility] [address] [place] [address] ARTHROPLASTY TOTAL KNEE LEFT Scheduled Procedures Name Priority Associated Diagnoses Date/Ti me ARTHROPLASTY TOTAL KNEE left knee osteoarthritis 10/23/2024 10:00 AM UNDERWRITING ASSISTANT ESOPHAGOGASTRODUODENOSCOPY Dysphagia, unspecified type documented as of this encounter Visit Diagnoses Not on filedocumented in this encounter Care Teams Locker Room Attendant Relationship Specialty Start Date End Date Wolfgang Serrano MD PCP - General Family Medicine 05/05/23 08/02/24 Unknown, Notinfile 03/12/22 [place] [address] [facility] [address] [place] [address] 03/12/22 Chuy Enriquez MD [address] [facility] [address] [place] [address] Consulting Physician Pulmonary Disease 10/13/23 Luis Felipe Cedillo MD [address] [facility] [address], [place] [address] Consulting Physician Gastroenterology 10/13/23 Marlene Thornton MD [address] [facility] [address] [address] Surgeon Vascular Surgery 11/10/23 documented as of this encounter
--- OUTSIDE RECORDS SUMMARY | 2024-10-11 02:59 | XMS_ITS | Encounter Summary ---
Author Organization [facility] Healthcare Address [address] [place] [address] Care Team Providers Care Mail Clerk Name Role Phone Wolfgang Serrano MD Primary Care Provider Unknown, Notinfile Unavailable Unavailable Santino Funk MD Unavailable Chuy Enriquez MD Unavailable Luis Felipe Cedillo MD Unavailable [phone] Marlene Thornton MD Unavailable Reason for Visit * Reason Comments Cerebrovascular Accident * Auth/Cert (Routine) Specialty Diagnoses / Procedures Referred By Contac t Referred To Contact Referral ID Status Reason Start Date Expiration Date Visits Re quested Visits Authorized [id number] 1 60 Encounter Details Date Type Department Care Team (Late st Contact Info) Description 02/29/2024 3:30 PM CDT Home Care Visit [facility] [address] [place] [address] Alaina Lopes PTA PT HOME [...] materials from doctor or pharmacy Sometimes 01/09/[facility] Utilities Answer Date Recorded In the past 12 months has th e [employer], gas, oil, or water [employer] threatened to shut off services in your [...] often do you attend chur ch or scientology services? More than 4 times per year [...] Recorded Patient Health Questionnaire-2 Score 0 01/06/2024 [facility] [place] of Occupat ional Health - [...] on file Legal Sex Male 3:25 PM DRIED FRUIT WASHER Gender Identity Not on file Sexual Orientation [...] Plan for Next Visit - Alaina Lopes, WILDLIFE POLICY PROFESSIONAL - 02/29/2024 4:29 PM CDT Reason for [...] (Latest Contact Info) Description 10/23/2024 10:00 AM DRIED FRUIT WASHER Hospital Encounter [facility] Operating Room [address] [place] [address] [place] [address] [address] 10/23/2024 10:00 AM DRIED FRUIT WASHER - 10/23/2024 1:00 PM DRIED FRUIT WASHER Surgery [facility] Operating Room [address] [place] [address] [place] [address] [address] ARTHROPLASTY TOTAL KNEE LEFT Scheduled Procedures Name Priority Associated Diagnoses Date/Ti me ARTHROPLASTY TOTAL KNEE left knee osteoarthritis 10/23/2024 10:00 AM DRIED FRUIT WASHER ESOPHAGOGASTRODUODENOSCOPY Dysphagia, unspecified type documented as of [...] home health visit Disciplines: SN, PT, OT, WAREHOUSE INVENTORY CLERK, MAIL CLERK, Skilled Disciplines Monitor patient's vital [...] visit during episode of care Description: Home orthotic/prosthetic clinician to measure vital signs during every [...] observed documented in this encounter Care Teams Mail Clerk Relationship Specialty Start Date End Date Wolfgang Serrano MD PCP - General Family Medicine 05/05/23 08/02/24 Unknown, Notinfile 03/12/22 [place] [address] [address] 03/12/22 Chuy Enriquez MD [address] [place] [address] Consulting Physician Pulmonary Disease 10/13/23 Luis Felipe Cedillo MD [address] [place] [address] Consulting Physician Gastroenterology 10/13/23 Marlene Thornton MD [address] [place] [address] Surgeon Vascular Surgery 11/10/23 documented as of this encounter
--- OUTSIDE RECORDS SUMMARY | 2024-10-11 02:59 | XMS_ITS | Encounter Summary ---
Author Organization [facility] Healthcare Address [address] [place] [address] Care Team Providers Care Rn Clinical Documentation Specialist Name Role Phone Wolfgang Serrano MD Primary Care Provider [phone] Unknown, Notinfile Unavailable Unavailable Santino Funk MD Unavailable [phone] Chuy Enriquez MD Unavailable [phone] Luis Felipe Cedillo MD Unavailable Marlene Thornton MD Unavailable [phone] Encounter Details Date Type Department Care Team (Late st Contact Info) Description 03/29/2024 Telephone [facility] Orthopedics and Sports Medicine at [place] [phone] [facility] [address] [place] [phone] George Sepulveda MD [address] [place] [address] Social History Tobacco Use Types Packs/Day [...] from doctor or pharmacy Sometimes 03/08/2024 [facility] Utilities Answer Date [...] often do you attend chur ch or spiritism services? More than 4 times per year [...] Recorded Patient Health Questionnaire-2 Score 0 01/06/2024 [facility] [place] of Occupat ional Health - Occupational Stress [...] on file Legal Sex Male 3:25 PM TAXI DANCER Gender Identity Not on file Sexual Orientation [...] (Latest Contact Info) Description 10/23/2024 10:00 AM TAXI DANCER Hospital Encounter [facility] Operating Room [address] [place] [address] [place] [address] [facility] [address] [place] [address] 10/23/2024 10:00 AM TAXI DANCER - 10/23/2024 1:00 PM TAXI DANCER Surgery [facility] Operating Room [address] [place] [address] [place] [address] [facility] [address] [place], [place] [id number] ARTHROPLASTY TOTAL KNEE LEFT Scheduled Procedures Name Priority Associated Diagnoses Date/Ti me ARTHROPLASTY TOTAL KNEE left knee osteoarthritis 10/23/2024 10:00 AM TAXI DANCER ESOPHAGOGASTRODUODENOSCOPY Dysphagia, unspecified type documented as of this encounter Visit Diagnoses Not on filedocumented in this encounter Care Teams Rn Clinical Documentation Specialist Relationship Specialty Start Date End Date Wolfgang Serrano MD PCP - General Family Medicine 05/05/23 08/02/24 Unknown, Notinfile 03/12/22 [place] [address] [facility] [address] [place] [address] 03/12/22 Chuy Enriquez MD [address] [place] [address] Consulting Physician Pulmonary Disease 10/13/23 Luis Felipe Cedillo MD [address] [place] [address] Consulting Physician Gastroenterology 10/13/23 Marlene Thornton MD [address] [facility] [address] [place] [address] Surgeon Vascular Surgery 11/10/23 documented as of this encounter
--- OUTSIDE RECORDS SUMMARY | 2024-10-11 02:59 | XMS_ITS | Encounter Summary ---
Author Organization [facility] Address [address] [place] [address] Phone Care Team Providers Care Laundry Helper Name Role Phone Wolfgang Serrano MD Primary Care Provider Unknown, Notinfile Unavailable Unavailable Santino Funk MD Unavailable Chuy Enriquez MD Unavailable Luis Felipe Cedillo MD Unavailable Marlene Thornton MD Unavailable Reason for Visit * Reason Onset Date Comments GI Preprocedure 05/09/2024 Encounter Details Date Type Department Care Team (Late st Contact Info) Description 05/09/2024 Telephone [facility] Gastroenterology [address] [place] [address] Medical Office Building [address], [address] [place] [address] Jenni Eddy RN GI Preprocedure [...] doctor or pharmacy Sometimes 03/08/2024 [facility] Utilities Answer Date Recorded In the [...] Patient Health Questionnaire-2 Score 0 01/06/2024 [facility] [place] of Occupat ional Health - Occupational Stress [...] on file Legal Sex Male 3:25 PM CATALYST MANUFACTURING OPERATOR Gender Identity Not on file Sexual Orientation Not on file documented as of this encounter Miscellaneous Notes * Telephone Encounter - Jenni Eddy RN - 05/09/2024 1:18 PM CDT Recommendations: - continue PPI BID - 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 Will reach out to patient in July for August timeframe with CPAP prior to MOBAP procedure. Reminder set. documented in this encounter Plan of Treatment Upcoming Encounters Date Type Department Care Team (Latest Contact Info) Description 10/23/2024 10:00 AM CATALYST MANUFACTURING OPERATOR Hospital Encounter [facility] Operating Room [address] [place] [address] [place] [address] [facility] [address] [place], [place] [id number] 10/23/2024 10:00 AM CATALYST MANUFACTURING OPERATOR - 10/23/2024 1:00 PM CATALYST MANUFACTURING OPERATOR Surgery [facility] Operating Room [id number] [place] [address] [place] [address] [id number] ARTHROPLASTY TOTAL KNEE LEFT Scheduled Procedures Name Priority Associated Diagnoses Date/Ti me ARTHROPLASTY TOTAL KNEE left knee osteoarthritis 10/23/2024 10:00 AM CATALYST MANUFACTURING OPERATOR ESOPHAGOGASTRODUODENOSCOPY Dysphagia, unspecified type documented as of this encounter Visit Diagnoses Not on filedocumented in this encounter Care Teams Laundry Helper Relationship Specialty Start Date End Date Wolfgang Serrano MD PCP - General Family Medicine 05/05/23 08/02/24 Unknown, Notinfile 03/12/22 [place] [address] [facility] [address] [place] [address] 03/12/22 Chuy Enriquez MD [address] [facility] [address] [place] [address] Consulting Physician Pulmonary Disease 10/13/23 Luis Felipe Cedillo MD [address] [facility] [address] [place] [address] Consulting Physician Gastroenterology 10/13/23 Marlene Thornton MD [address] [place] [address] Surgeon Vascular Surgery 11/10/23 documented as of this encounter
--- OUTSIDE RECORDS SUMMARY | 2024-10-11 02:59 | XMS_ITS | Encounter Summary ---
Author Organization [facility] Healthcare Address [address] [place] [address] Care Team Providers Care Doper Name Role Phone Wolfgang Serrano MD Primary Care Provider [phone] Unknown, Notinfile Unavailable Unavailable Santino Funk MD Unavailable Chuy Enriquez MD Unavailable Luis Felipe Cedillo MD Unavailable [phone] Marlene Thornton MD Unavailable Reason for Visit * Auth/Cert (Routine) Specialty Diagnoses / Procedures Referred By Contac t Referred To Contact Referral ID Status Reason Start Date Expiration Date Visits Re quested Visits Authorized [id number] 1 60 Encounter Details Date Type Department Care Team (Late st Contact Info) Description 03/03/2024 9:00 AM CDT Home Care Visit [facility] [place] [address] [address] [place] [address] Sarah Paulino COTA OT HOME [...] materials from doctor or pharmacy Sometimes 01/09/2024 [facility] Utilities Answer Date Recorded In [...] any clubs o r organizations such as mu-ism groups, unions, fraternal or athletic groups, or [...] Recorded Patient Health Questionnaire-2 Score 0 01/06/2024 [facility] [place] of Occupat ional Health - Occupational Stress [...] on file Legal Sex Male 3:25 PM HIV/AIDS CARE NURSE Gender Identity Not on file Sexual Orientation [...] (Latest Contact Info) Description 10/23/2024 10:00 AM HIV/AIDS CARE NURSE Hospital Encounter [facility] Operating Room [address] [place] [address] [place] [address] [address] 10/23/2024 10:00 AM HIV/AIDS CARE NURSE - 10/23/2024 1:00 PM HIV/AIDS CARE NURSE Surgery [facility] Operating Room [address] [place] [address] [place] [address] [address] ARTHROPLASTY TOTAL KNEE LEFT Scheduled Procedures Name Priority Associated Diagnoses Date/Ti me ARTHROPLASTY TOTAL KNEE left knee osteoarthritis 10/23/2024 10:00 AM HIV/AIDS CARE NURSE ESOPHAGOGASTRODUODENOSCOPY Dysphagia, unspecified type documented as of [...] home health visit Disciplines: SN, PT, OT, DICE PERSON, TAMPING MACHINE OPERATOR ROAD FORMS, Skilled Disciplines Monitor patient's vital signs every [...] visit during episode of care Description: Home type soldering machine tender to measure vital signs during [...] so. documented in this encounter Care Teams Doper Relationship Specialty Start Date End Date Wolfgang Serrano MD PCP - General Family Medicine 05/05/23 08/02/24 Unknown, Notinfile 03/12/22 [place] [address] [facility] [address] [place] [address] 03/12/22 Chuy Enriquez MD [address] [facility] [address] [place] [address] Consulting Physician Pulmonary Disease 10/13/23 Luis Felipe Cedillo MD [address] [facility] [address] [place] [address] Consulting Physician Gastroenterology 10/13/23 Marlene Thornton MD [address] [facility] [address] [place] [address] Surgeon Vascular Surgery 11/10/23 documented as of this encounter
--- OUTSIDE RECORDS SUMMARY | 2024-10-11 02:59 | XMS_ITS | Encounter Summary ---
Author Organization [facility] Healthcare Address [address] [place] [address] Care Team Providers Care Senior Mobile Application Developer Name Role Phone Wolfgang Serrano MD Primary Care Provider [phone] Unknown, Notinfile Unavailable Unavailable Santino Funk MD Unavailable [phone] Chuy Enriquez MD Unavailable [phone] Luis Felipe Cedillo MD Unavailable [phone] Marlene Thornton MD Unavailable [phone] Reason for Visit * Auth/Cert (Routine) Specialty Diagnoses / Procedures Referred By Contac t Referred To Contact Referral ID Status Reason Start Date Expiration Date Visits Re quested Visits Authorized [id number] 1 60 Encounter Details Date Type Department Care Team (Late st Contact Info) Description 02/28/2024 9:00 AM CDT Home Care Visit [facility] Health [address] [address] [address] [place] [address] Sarah Paulino COTA OT HOME [...] materials from doctor or pharmacy Sometimes 01/09/2024 [facility] Utilities Answer Date Recorded In the [...] any clubs o r organizations such as caodaism groups, unions, fraternal or athletic groups, or [...] Recorded Patient Health Questionnaire-2 Score 0 01/06/2024 [facility] [place] of Occupat ional Health - Occupational Stress [...] on file Legal Sex Male 3:25 PM CHILD WELFARE WORKER Gender Identity Not on file Sexual [...] (Latest Contact Info) Description 10/23/2024 10:00 AM CHILD WELFARE WORKER Hospital Encounter [facility] Operating Room [address] [place] [address] [place] [address] [address] 10/23/2024 10:00 AM CHILD WELFARE WORKER - 10/23/2024 1:00 PM CHILD WELFARE WORKER Surgery [facility] Operating Room [address] [place] [address] [place] [address] [address] ARTHROPLASTY TOTAL KNEE LEFT Scheduled Procedures Name Priority Associated Diagnoses Date/Ti me ARTHROPLASTY TOTAL KNEE left knee osteoarthritis 10/23/2024 10:00 AM CHILD WELFARE WORKER ESOPHAGOGASTRODUODENOSCOPY Dysphagia, unspecified type documented as [...] home health visit Disciplines: SN, PT, OT, COMMUNITY ARTS CENTRE MANAGER, TOBACCO WAREHOUSE MANAGER, Skilled Disciplines Monitor patient's vital signs [...] visit during episode of care Description: Home field services manager to measure vital signs during every [...] him. documented in this encounter Care Teams Senior Mobile Application Developer Relationship Specialty Start Date End Date Wolfgang Serrano MD PCP - General Family Medicine 05/05/23 08/02/24 Unknown, Notinfile 03/12/22 [place] [address] [place] [address] 03/12/22 Chuy Enriquez MD [address] [place] [address] Consulting Physician Pulmonary Disease 10/13/23 Luis Felipe Cedillo MD [address] [address] Consulting Physician Gastroenterology 10/13/23 Marlene Thornton MD [address] [address] Surgeon Vascular Surgery 11/10/23 documented as of this encounter
--- OUTSIDE RECORDS SUMMARY | 2024-10-11 02:59 | XMS_ITS | Encounter Summary ---
Author Organization [facility] Healthcare Address [address] [place] [address] Care Team Providers Care Rail Walker Name Role Phone Wolfgang Serrano MD Primary Care Provider Unknown, Notinfile Unavailable Unavailable Santino Funk MD Unavailable [phone] Chuy Enriquez MD Unavailable Luis Felipe Cedillo MD Unavailable Marlene Thornton MD Unavailable Reason for Visit * Reason Comments Stroke * Auth/Cert (Routine) Specialty Diagnoses / Procedures Referred By Contac t Referred To Contact Referral ID Status Reason Start Date Expiration Date Visits Re quested Visits Authorized [id number] 1 60 Encounter Details Date Type Department Care Team (Late st Contact Info) Description 03/08/2024 10:00 AM CDT Home Care Visit [facility] Health - [place] [address] [address] [address] [place] [address] Jacque Tolliver, PT PT OASIS DISCHARGE Social [...] materials from doctor or pharmacy Sometimes 03/08/2024 [facility] Utilities Answer Date Recorded In the past 12 months has th e [employer], gas, oil, or water company threatened to [...] Recorded Patient Health Questionnaire-2 Score 0 01/06/2024 [facility] [place] of Occupat ional Health - Occupational Stress [...] file Legal Sex Male 3:25 PM RETAIL PRESENTATION SPECIALIST Gender Identity Not on file Sexual [...] Contact Info) Description 10/23/2024 10:00 AM RETAIL PRESENTATION SPECIALIST Hospital Encounter [facility] Operating Room [address] [place] [address] [place] [address] [address] 10/23/2024 10:00 AM RETAIL PRESENTATION SPECIALIST - 10/23/2024 1:00 PM RETAIL PRESENTATION SPECIALIST Surgery [facility] Operating Room [address] [place] [address] [place] [address] [address] ARTHROPLASTY TOTAL KNEE LEFT Scheduled Procedures Name Priority Associated Diagnoses Date/Ti me ARTHROPLASTY TOTAL KNEE left knee osteoarthritis 10/23/2024 10:00 AM RETAIL PRESENTATION SPECIALIST ESOPHAGOGASTRODUODENOSCOPY Dysphagia, unspecified type documented as [...] home health visit Disciplines: SN, PT, OT, NURSES AIDE, STOCK SHEETS CLEANER INSPECTOR, Skilled Disciplines Monitor patient's vital signs every [...] visit during episode of care Description: Home power equipment mechanics instructor to measure vital signs during every home [...] Completed documented in this encounter Care Teams Rail Walker Relationship Specialty Start Date End Date Wolfgang Serrano MD PCP - General Family Medicine 05/05/23 08/02/24 Unknown, Notinfile 03/12/22 [place] [address] [place] [address] 03/12/22 Chuy Enriquez MD [address] [place] [address] Consulting Physician Pulmonary Disease 10/13/23 Luis Felipe Cedillo MD [address] [place] [address] Consulting Physician Gastroenterology 10/13/23 Marlene Thornton MD [address], [place] [address] Surgeon Vascular Surgery 11/10/23 documented as of this encounter
--- OUTSIDE RECORDS SUMMARY | 2024-10-11 02:59 | XMS_ITS | Encounter Summary ---
Author Organization [facility] Healthcare Address [address] [place] [address] Care Team Providers Care Reimbursement Liaison Name Role Phone Wolfgang Serrano MD Primary Care Provider [phone] Unknown, Notinfile Unavailable Unavailable Santino Funk MD Unavailable [phone] Chuy Enriquez MD Unavailable Luis Felipe Cedillo MD Unavailable [phone] Marlene Thornton MD Unavailable Reason for Visit * Auth/Cert (Routine) Specialty Diagnoses / Procedures Referred By Contac t Referred To Contact Referral ID Status Reason Start Date Expiration Date Visits Re quested Visits Authorized [id number] 1 60 Encounter Details Date Type Department Care Team (Latest Contact Info) Description 03/08/2024 9:00 AM CDT Home Care Visit [facility] Health [address] [address] [address] [place] [address] Kavya Basurto, OT OT DISCIPLINE [...] In the past 12 months has e [employer], gas, oil, or water company threatened to [...] often do you attend chur ch or methodist services? More than 4 times per year [...] Score 0 01/06/2024 [facility] [place] of Occupat ional Health - Occupational Stress [...] on file Legal Sex Male 3:25 PM TOLL TEST DESK WORKER Gender Identity Not on file Sexual [...] PT * Home Health Visit Narrative - Kavya Basurto OT - 03/08/2024 9:31 AM CDT Pt. was referred to [facility]OT s/p admission to [facility] from 12/07/2023 - 12/15/2023 (8 days) secondary [...] (Latest Contact Info) Description 10/23/2024 10:00 AM TOLL TEST DESK WORKER Hospital Encounter [facility] Operating Room [address] [place], [place] [id number] [place] [address] [address] 10/23/2024 10:00 AM TOLL TEST DESK WORKER - 10/23/2024 1:00 PM TOLL TEST DESK WORKER Surgery [facility] Operating Room [address] [place] [address] [place] [address] [facility] [address] [place] [address] ARTHROPLASTY TOTAL KNEE LEFT Scheduled Procedures Name Priority Associated Diagnoses Date/Ti me ARTHROPLASTY TOTAL KNEE left knee osteoarthritis 10/23/2024 10:00 AM TOLL TEST DESK WORKER ESOPHAGOGASTRODUODENOSCOPY Dysphagia, unspecified type documented as [...] home health visit Disciplines: SN, PT, OT, COMPUTER CONSULTANT, ASSEMBLY LINE INSPECTOR, Skilled Disciplines Monitor patient's vital signs [...] visit during episode of care Description: Home eating disorder psychologist to measure vital signs during every home [...] information documented in this encounter Care Teams Reimbursement Liaison Relationship Specialty Start Date End Date Wolfgang Serrano MD PCP - General Family Medicine 05/05/23 08/02/24 Unknown, Notinfile 03/12/22 [place] [address] [place] [address] 03/12/22 Chuy Enriquez MD [address] [place] [address] Consulting Physician Pulmonary Disease 10/13/23 Luis Felipe Cedillo MD [address] [place] [address] Consulting Physician Gastroenterology 10/13/23 Marlene Thornton MD [address], [place] [address] Surgeon Vascular Surgery 11/10/23 documented as of this encounter
--- OUTSIDE RECORDS SUMMARY | 2024-10-11 02:59 | XMS_ITS | Encounter Summary ---
Author Organization [facility] Healthcare Address [address] [place] [address] Care Team Providers Care Almond Grinder Name Role Phone Wolfgang Serrano MD Primary Care Provider Unknown, Notinfile Unavailable Unavailable Santino Funk MD Unavailable [phone] Chuy Enriquez MD Unavailable Luis Felipe Cedillo MD Unavailable Marlene Thornton MD Unavailable Reason for Visit * Reason Comments Cerebrovascular Accident * Auth/Cert (Routine) Specialty Diagnoses / Procedures Referred By Contac t Referred To Contact Referral ID Status Reason Start Date Expiration Date Visits Re quested Visits Authorized [id number] 1 60 Encounter Details Date Type Department Care Team (Late st Contact Info) Description 03/02/2024 11:30 AM CDT Home Care Visit [facility] Health [address] [place] [address] Alaina Lopes PTA PT HOME VISIT Social [...] materials from doctor or pharmacy Sometimes 01/09/2024 [facility] Utilities Answer Date Recorded In the past 12 months has th e [employer], gas, oil, or water [employer] threatened to shut off services in your [...] any clubs o r organizations such as worship groups, unions, fraternal or athletic groups, or [...] Recorded Patient Health Questionnaire-2 Score 0 01/06/2024 [facility] [place] of Occupat ional Health - Occupational Stress [...] on file Legal Sex Male 3:25 PM OPTICAL EFFECTS LAYOUT PERSON Gender Identity Not on file Sexual Orientation [...] Plan for Next Visit - Alaina Lopes, STRATEGIC BUSINESS DEVELOPMENT - 03/02/2024 10:53 AM CDT Reason for today's visit gait, garage steps, balance, strengthening Discuss plan of care with pt and Discharge planning for next week with progression into outpt Plan for next visit gait, garage steps, assess safety with transfers, balance pt reports has set up start date for outpatient 03/11 and will have transportation through the [facility] day institute have been working on transfers in and out of the home using [facility] and observing pt is agreeable with poc documented in this encounter Plan of Treatment Upcoming Encounters Date Type Department Care Team (Latest Contact Info) Description 10/23/2024 10:00 AM OPTICAL EFFECTS LAYOUT PERSON Hospital Encounter [facility] Operating Room [address] [place] [address] [place] [address] [address] 10/23/2024 10:00 AM OPTICAL EFFECTS LAYOUT PERSON - 10/23/2024 1:00 PM OPTICAL EFFECTS LAYOUT PERSON Surgery [facility] Operating Room [address] [place] [address] [place] [address] [address] ARTHROPLASTY TOTAL KNEE LEFT Scheduled Procedures Name Priority Associated Diagnoses Date/Ti de ARTHROPLASTY TOTAL KNEE left knee osteoarthritis 10/23/2024 10:00 AM OPTICAL EFFECTS LAYOUT PERSON ESOPHAGOGASTRODUODENOSCOPY Dysphagia, unspecified type documented as of [...] health visit Disciplines: SN, PT, OT, AIRCRAFT ARMORER, FILM WRITER, Skilled Disciplines Monitor patient's vital signs every [...] visit during episode of care Description: Home railway track plant operator to measure vital signs during every [...] participate documented in this encounter Care Teams Almond Grinder Relationship Specialty Start Date End Date Wolfgang Serrano MD PCP - General Family Medicine 05/05/23 08/02/24 Unknown, Notinfile 03/12/22 [place] [address] [facility] [address] [place] [address] 03/12/22 Chuy Enriquez MD [address] [place] [address] Consulting Physician Pulmonary Disease 10/13/23 Luis Felipe Cedillo MD [address] [place] [address] Consulting Physician Gastroenterology 10/13/23 Marlene Thornton MD [address], [place] [address] Surgeon Vascular Surgery 11/10/23 documented as of this encounter
--- OUTSIDE RECORDS SUMMARY | 2024-10-11 02:59 | XMS_ITS | Encounter Summary ---
Author Organization [facility] Healthcare Address [address] [place] [address] Care Team Providers Care Operations Administrator Name Role Phone Wolfgang Serrano MD Primary Care Provider [phone] Unknown, Notinfile Unavailable Unavailable Santino Funk MD Unavailable Chuy Enriquez MD Unavailable Luis Felipe Cedillo MD Unavailable [phone] Marlene Thornton MD Unavailable Encounter Details Date Type Department Care Team (Latest Contact Info) Description 06/14/2024 8:45 AM CDT Pre-Admission Testing [facility] Pre Anesthesia Testing [address] [place] [address] Pre-op testing (Primary Dx) Anesthesia [...] materials from doctor or pharmacy Sometimes 03/08/2024 [facility] Utilities Answer Date Recorded In the past 12 months has e [employer], gas, oil, or water [employer] threatened to shut off services in your [...] often do you attend chur ch or presybeterian services? 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 We hope that the following information will help make your visit a pleasant one. Surgery Date: 06/26/2024 Arrive at 9:30am [facility] (look for sign reading ???[facility] - SUR[facility]ERY CENTER?? ) [address] [place] [address] Before your surgery: Notify your doctor of [...] insurance cards, and medication list (including all [id number] medications) with you. Prescriptions can be filled [...] (Latest Contact Info) Description 10/23/2024 10:00 AM TABLE COVER FOLDER Hospital Encounter [facility] Operating Room [address] [place] [address] [place] [address] [address] 10/23/2024 10:00 AM TABLE COVER FOLDER - 10/23/2024 1:00 PM TABLE COVER FOLDER Surgery [facility] Operating Room [address] [place] [address] [place] [address] [address] ARTHROPLASTY TOTAL KNEE LEFT Scheduled Procedures Name Priority Associated Diagnoses Date/Ti me ARTHROPLASTY TOTAL KNEE left knee osteoarthritis 10/23/2024 10:00 AM TABLE COVER FOLDER ESOPHAGOGASTRODUODENOSCOPY Dysphagia, unspecified type documented as of [...] current clinical standards) Comment:Testing performed by : [facility], [address] [facility] [place] [address] Organism (CLINICALLY INSIGNIFICANT GROWTH MARVIN Urine, clean voided 06/14/2024 9:26 AM CDT 06/14/2024 6:07 PM CDT Narrative MARVIN - 06/15/2024 8:09 PM CDT Urine culture reflexed based upon urinalysis results. Testing performed by [facility] ([phone]) us Kavitha Ramirez NP LAB MICROBIOLOGY - GENERAL ORD ERABLES Final Result MARVIN [address] [address] Department [place] [address] * (ABNORMAL) Urinalysis, microscopic only (06/14/2024 9:26 AM CDT) WBC, ur >50(A) 0 - 5 /HPF RBC, ur 6-10(A) 0 - 2 /HPF [facility] Epithelial cells, squamous, ur 1-5 0 - 5 /HPF [facility] Mucous, ur Present(A) [facility] Calcium oxalate crystals, ur Trace(A) [facility] Culture Reflex Comment Reflex to urine culture will be performed. [facility] Urine, clean voided 06/14/2024 9:26 AM CDT 06/14/2024 1:19 PM CDT us Kavitha Ramirez TURFGRASS TECHNICIAN LAB URINE ORDERABLES Final Res ult [facility] [address] [address] Department [place] [address] * eGFR (06/14/2024 9:26 AM CDT) eGFR [...] 06/14/2024 10:22 AM CDT us Kavitha Ramirez TURFGRASS TECHNICIAN LAB BLOOD ORDERABLES Final Res ult [facility] [address] [address] Department [place] [address] * Differential, auto (06/14/2024 9:26 AM CDT) Neutrophil abs 4.8 1.5 - 6.5 K/cumm Imm gran abs 0.0 0.0 - 0.1 K/cumm [facility] Lymphocyte abs 1.8 0.8 - 3.3 K/cumm [facility] Monocyte abs 0.7 0.2 - 0.8 K/cumm [facility] Eosinophil abs 0.3 0.0 - 0.5 K/cumm [facility] Basophil abs 0.1 0.0 - 0.1 K/cumm [facility] Neutrophil pct 62.5 % [facility] Comment: Interpretive Data Percent cell count reference ranges are not reported, since discordance with absolute values may lead to misinterpretation of CBC data. Current Interpretive Data was last revised on 2018. Imm gran pct 0.3 % [facility] Comment: Interpretive Data Percent cell count reference ranges are not reported, since discordance with absolute values may lead to misinterpretation of CBC data. Current Interpretive Data was last revised on 2018. Lymphocyte pct 22.9 % [facility] Comment: Interpretive Data Percent cell count reference ranges are not reported, since discordance with absolute values may lead to misinterpretation of CBC data. Current Interpretive Data was last revised on 2018. Monocyte pct 9.3 % [facility] Comment: Interpretive Data Percent cell count reference ranges are not reported, since discordance with absolute values may lead to misinterpretation of CBC data. Current Interpretive Data was last revised on 2018. Eosinophil pct 4.2 % [facility] Comment: Interpretive Data Percent cell [...] 06/14/2024 10:18 AM CDT us Kavitha Ramirez TURFGRASS TECHNICIAN LAB BLOOD ORDERABLES Final [facility] [address] [address] Department [place] [address] * (ABNORMAL) Urinalysis reflex to microscopic and [...] tendency for uric acid stone formation. Source: [facility] Current Interpretive Data was last revised on [...] ORD ERABLES Final Result Performing Organization Address [facility] Co de Phone Number MARVIN FISHER [address] [address] [facility] [address] [place], [place] [id number] * Type and screen (06/14/2024 9:26 AM CDT) Pathologist [facility] Sarah, indirect Negative ABO Rh O Negative [facility] Blood 06/14/2024 9:26 AM CDT 06/14/2024 10:21 AM CDT Narrative [facility] - 06/14/2024 11:12 AM CDT Is this test being ordered in advance for a procedure?->Yes Expected date of procedure:->06/26/24 Has the patient been transfused in the past 3 months?->Unknown Kavitha Ramirez NP LAB BLOOD BANK TEST ORDERABLES Final Result Performing Organization Address [facility] de Phone Number MARVIN FISHER [address] [address] [place] [address] * (ABNORMAL) CBC with auto differential (06/14/2024 9:26 AM CDT) [facility] WBC 7.6 3.8 - 9.9 K/cumm Hgb 13.6 13.0 - 17.5 g/dL [facility] Hct 42.1 38.9 - 50.3 % [facility] Plt 239 150 - 400 K/cumm [facility] MPV 10.7 9.1 - 12.3 fL [facility] RBC 4.44 4.30 - 5.80 M/cumm [facility] MCV 94.8 81.3 - 96.4 fL [facility] MCH 30.6 27.1 - 33.3 pg [facility]ER MCHC 32.3 32.3 - 35.7 g/dL [facility] CH RDW CV 15.8(H) 11.1 - 14.9 % [facility] CH RDW SD 55.3(H) 35.7 - 48.1 fL [facility] NRBC abs 0.00 0.00 - 0.01 K/cumm [facility] Blood 06/14/2024 9:26 AM CDT 06/14/2024 10:18 AM CDT Kavitha aRmirez TURFGRASS TECHNICIAN LAB BLOOD ORDERABLES Final Res ult MARVIN FISHER [address] [address] Department [place] [address] * Basic metabolic panel (06/14/2024 9:26 AM CDT) Pathologist [facility] Sodium 138 135 - 145 mmol/L Potassium, pl 4.1 3.3 - 4.9 mmol/L [facility] Chloride 105 97 - 110 mmol/L [facility] CH CO2 22 22 - 32 mmol/L [facility] Anion gap 11 2 - 15 mmol/L [facility] BUN 14 6 - 25 mg/dL [facility] Creatinine 1.05 0.80 - 1.30 mg/dL [facility] Glucose 112 70 - 199 mg/dL [facility] Comment: Interpretive Data Fasting glucose [...] 2022. Calcium 9.7 8.5 - 10.3 mg/dL [facility] Blood 06/14/2024 9:26 AM CDT 06/14/2024 10:22 AM CDT Kavitha Ramirez NP LAB BLOOD ORDERABLES Final Res ult MARVIN FISHER [address] [address] Department [place] [address] documented in this encounter Visit Diagnoses Diagnosis [...] 06/02/2024 added in this encounter Care Teams Operations Administrator Relationship Specialty Start Date End Date Wolfgang Serrano MD PCP - General Family Medicine 05/05/23 08/02/24 Unknown, Notinfile 03/12/22 [place] [address] [place] [address] 03/12/22 Chuy Enriquez MD [address] [place] [address] Consulting Physician Pulmonary Disease 10/13/23 Luis Felipe Cedillo MD [address] [facility] [address], [place] [address] Consulting Physician Gastroenterology 10/13/23 Marlene Thornton MD [address] [facility] [address], [place] [address] Surgeon Vascular Surgery 11/10/23 documented as of this encounter
--- OUTSIDE RECORDS SUMMARY | 2024-10-11 02:59 | XMS_ITS | Encounter Summary ---
Author Organization [facility] Address [address] [place] [address] Phone Care Team Providers Care Financial Supervisor Name Role Phone Wolfgang Serrano MD Primary Care Provider Unknown, Notinfile Unavailable Unavailable Santino Funk MD Unavailable [phone] Chuy Enriquez MD Unavailable Luis Felipe Cedillo MD Unavailable Marlene Thornton MD Unavailable Reason for Visit * Reason Onset Date Comments GI Preprocedure 04/28/2024 Encounter Details Date Type Department Care Team (Late st Contact Info) Description 04/28/2024 Telephone [facility] Gastroenterology [address] [place] [address] Medical Office Building [address], [address] [place] [address] Jenni Eddy RN GI Preprocedure [...] from doctor or pharmacy Sometimes 03/08/2024 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 Gender Identity Not on file [...] (Latest Contact Info) Description 10/23/2024 10:00 AM CHALK EXTRUDING MACHINE OPERATOR Hospital Encounter [facility] Operating Room [address] [place] [address] [place] [address] [id number] 10/23/2024 10:00 AM CHALK EXTRUDING MACHINE OPERATOR - 10/23/2024 1:00 PM CHALK EXTRUDING MACHINE OPERATOR Surgery [facility] Operating Room [address] [place] [address] [place] [address] [id number] ARTHROPLASTY TOTAL KNEE LEFT Scheduled Procedures Name Priority Associated Diagnoses Date/Ti sd ARTHROPLASTY TOTAL KNEE left knee osteoarthritis 10/23/2024 10:00 AM CHALK EXTRUDING MACHINE OPERATOR ESOPHAGOGASTRODUODENOSCOPY Dysphagia, unspecified type documented as of this encounter Visit Diagnoses Not on filedocumented in this encounter Care Teams Financial Supervisor Relationship Specialty Start Date End Date Wolfgang Serrano MD PCP - General Family Medicine 05/05/23 08/02/24 Unknown, Notinfile 03/12/22 [place] [address] [facility] [address] [place] [address] 03/12/22 Chuy Enriquez MD [address] [facility] [address] [place] [address] Consulting Physician Pulmonary Disease 10/13/23 Luis Felipe Cedillo MD [address] [facility] [address], [place] [address] Consulting Physician Gastroenterology 10/13/23 Marlene Thornton MD [address] [facility] [address], [place] [address] Surgeon Vascular Surgery 11/10/23 documented as of this encounter
--- OUTSIDE RECORDS SUMMARY | 2024-10-11 02:59 | XMS_ITS | Encounter Summary ---
Author Organization [facility] Healthcare Address [address] [place] [address] Care Team Providers Care Inclusion Intern Name Role Phone Wolfgang Serrano MD Primary Care Provider Unknown, Notinfile Unavailable Unavailable Santino Funk MD Unavailable Chuy Enriquez MD Unavailable Luis Felipe Cedillo MD Unavailable Marlene Thornton MD Unavailable Reason for Visit * Reason Comments Pre-op Visit Follow-up Encounter Details Date Type Department Care Team (Latest Contact Info) Description 04/26/2024 1:45 PM CDT Office Visit [facility] Orthopedics and Sports Medicine at [place] [id number] [facility] [address] [place] [address] George Sepulveda MD [address] [place] [address] Primary osteoarthritis of both knees (Primary [...] Recorded Patient Health Questionnaire-2 Score 0 01/06/2024 [facility] of Occupat ional Health - Occupational [...] on file 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) ([facility]), Complex tear of medialmeniscus of left knee as current injury, Complex tear of medial meniscus of right knee as current injury, Cramps of lower extremity, Diverticulitis of colon, Easy bruisability, Fatigue, Frequent urina tion, Gastroesophageal reflux disease, Hypothyroidism, Incontinence of urine, Muscle weakness, Osteoarthritis, Peptic ulcer, Seizures ([facility]) (1997), SOB (shortness of breath) on exertion, Subchondral insufficiency fracture of condyle of left femur ([facility]) ([facility]), Vertigo, Vision changes, and Visualdisturbance. He has [...] again reviewed and interpreted these demonstrate near gwhi-ti-starfrioko and patellofemoral joint space narrowing with subchondral sclerosis consistent with grade 3 osteoarthritis Assessment/Plan Abrahan was seen today for pre-op visit and follow-up. Diagnoses and all orders for this visit: Primary osteoarthritis of both knees Hx of total knee replacement, right Hemiparesis affecting left side as late effect of cerebrovascular accident (CVA) ([facility]) ([facility]) Plan I discussed the nature of the [...] (Latest Contact Info) Description 10/23/2024 10:00 AM OLD TESTAMENT PROFESSOR Hospital Encounter [facility] Operating Room [address] [place] [address] [place] [id number] [place] [address] 10/23/2024 10:00 AM OLD TESTAMENT PROFESSOR - 10/23/2024 1:00 PM OLD TESTAMENT PROFESSOR Surgery [facility] Operating Room [address] [place] [address] [place] [address] [address] ARTHROPLASTY TOTAL KNEE LEFT Scheduled Procedures Name Priority Associated Diagnoses Date/Ti me ARTHROPLASTY TOTAL KNEE left knee osteoarthritis 10/23/2024 10:00 AM OLD TESTAMENT PROFESSOR ESOPHAGOGASTRODUODENOSCOPY Dysphagia, unspecified type documented as of this encounter Visit Diagnoses Diagnosis Primary osteoarthritis of both knees- Primary Hx of total knee replacement, right Hemiparesis affecting left side as late effect of cerebrovascular accident (CVA) (CMS/HCC) ([facility]) documented in this encounter Care Teams Inclusion Intern Relationship Specialty Start Date End Date Wolfgang Serrano MD PCP - General Family Medicine 05/05/23 08/02/24 Unknown, Notinfile 03/12/22 [place] [address] [facility] [address] [place] [address] 03/12/22 Chuy Enriquez MD [address] [facility] [address] [place], [place] [id number] Consulting Physician Pulmonary Disease 10/13/23 Luis Felipe Cedillo MD [address] [facility] [address] [place] [address] Consulting Physician Gastroenterology 10/13/23 Marlene Thornton MD [address] [facility] [address] [place] [address] Surgeon Vascular Surgery 11/10/23 documented as of this encounter
--- OUTSIDE RECORDS SUMMARY | 2024-10-11 02:59 | XMS_ITS | Encounter Summary ---
Author Organization [facility] Address [address] [facility] [address] [place] [address] Phone Care Team Providers Care Colorist Name Role Phone Wolfgang Serrano MD Primary Care Provider Unknown, Notinfile Unavailable Unavailable Santino Funk MD Unavailable Chuy Enriquez MD Unavailable Luis Felipe Cedillo MD Unavailable Marlene Thornton MD Unavailable [phone] Reason for Referral * Consultation (Routine) - Closed Specialty Diagnoses / Procedures Referred By Contac t Referred To Contact Neurology Diagnoses Cerebrovascular accident (CVA), unspecified mechanism (HCC) Kostas Joshi MD [address] [facility] [place] [address] Phone: tel: fax: [facility] Stroke [address] [facility] [address] [place] [address] Phone: tel: fax: Referral ID Status Reason Start Date Expiration Date V isits Requested Visits Authorized [id number] Closed Specialty Services Required 04/20/2024 05/20/2025 1 1 Question Answer Please select the performing region: [facility] (All Locations) [167] # of visits: 1 Comments For f/u post stroke Reason for Visit * Consultation (Routine) - Pending Review Specialty Diagnoses / Procedures Referred By Contac t Referred To Contact Gastroenterology Diagnoses Dysphagia, unspecified type Diverticulum of esophagus, acquired Irvin Smith MD [address] [place] [address] Phone: tel: fax: Yfn Roe MD [address] [facility] [place] [address] Phone: tel: fax: Referral ID Status Reason Start Date Expiration Date Visits Requested Visits Authorized [id number] Pending Review Specialty Services Required 02/03/2024 04/06/2025 12 12 Encounter Details Date Type Department Care Team (Late st Contact Info) Description 04/20/2024 8:00 AM CDT Office Visit [facility] Gastroenterology [address] [facility] 2nd [address] [place] [address] Yfn Roe MD [address] [place] [address] Dysphagia, unspecified type (Primary Dx); Diverticulum of [...] materials from doctor or pharmacy Sometimes 03/08/2024 [facility] Utilities Answer Date Recorded In the past [...] Patient Health Questionnaire-2 Score 0 01/06/2024 [facility] [place] of Occupat ional Health - Occupational Stress [...] on file Legal Sex Male 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 Patient believes his muscle was split but [...] and TUMs twice weekly. Recent hospitalization at [facility] 12/2023 where he presented with left sided weakness concerning for stroke though CT was negative. MIS MANAGER evaluated patient and found left labial weakness [...] delayed healing, subsequent encounter Clotting disorder (CMS/HCC) ([facility]) Complex tear of medial meniscus of left [...] total) by mouth 2 (two) times a imn802 tablet 0 rosuvastatin (CRESTOR) 40 mg tablet [...] - EGD with endoflip +/- dilation at [facility] Kostas Joshi MD Gastroenterology Fellow [...] (Latest Contact Info) Description 10/23/2024 10:00 AM ACCOUNTS PAYABLE BOOKKEEPER Hospital Encounter [facility] Operating Room [address] [place] [address] [place] [address] [address] 10/23/2024 10:00 AM ACCOUNTS PAYABLE BOOKKEEPER - 10/23/2024 1:00 PM ACCOUNTS PAYABLE BOOKKEEPER Surgery [facility] Operating Room [address] [place] [address] [place] [address] [address] ARTHROPLASTY TOTAL KNEE LEFT Scheduled Procedures Name Priority Associated Diagnoses Date/Ti me ARTHROPLASTY TOTAL KNEE left knee osteoarthritis 10/23/2024 10:00 AM ACCOUNTS PAYABLE BOOKKEEPER ESOPHAGOGASTRODUODENOSCOPY Dysphagia, unspecified type Scheduled Referrals Name [...] 04/20/2024 documented in this encounter Care Teams Colorist Relationship Specialty Start Date End Date Wolfgang Serrano MD PCP - General Family Medicine 05/05/23 08/02/24 Unknown, Notinfile 03/12/22 [place] [address] [facility] [address] [place] [address] 03/12/22 Chuy Enriquez MD [address] [facility] [address] [place] [address] Consulting Physician Pulmonary Disease 10/13/23 Luis Felipe Cedillo MD [address] [facility] [address] [address] Consulting Physician Gastroenterology 10/13/23 Marlene Thornton MD [address] [facility] [address] [address] Surgeon Vascular Surgery 11/10/23 documented as of this encounter
--- OUTSIDE RECORDS SUMMARY | 2024-10-11 02:59 | XMS_ITS | Encounter Summary ---
Author Organization [facility] Healthcare Address [address] [place] [address] Care Team Providers Care Attendant Campground Name Role Phone Wolfgang Serrano MD Primary Care Provider [phone] Unknown, Notinfile Unavailable Unavailable Santino Funk MD Unavailable Chuy Enriquez MD Unavailable Luis Felipe Cedillo MD Unavailable [phone] Marlene Thornton MD Unavailable Reason for Visit * Auth/Cert (Routine) Specialty Diagnoses / Procedures Referred By Contac t Referred To Contact Referral ID Status Reason Start Date Expiration Date Visits Re quested Visits Authorized [id number] 1 60 Encounter Details Date Type Department Care Team (Late st Contact Info) Description 03/08/2024 Home Care Visit [facility] [address] [place] [address] Kavya Basurto, OT TELEPHONE ENCOUNTER Social History [...] from doctor or pharmacy Sometimes 03/08/2024 [facility] Utilities Answer Date Recorded [...] often do you attend chur ch or taoist services? 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 Gender Identity Not on file Sexual Orientation Not on file documented as of this encounter Plan of Treatment Upcoming Encounters Date Type Department Care Team (Latest Contact Info) Description 10/23/2024 10:00 AM FUELS SALES REPRESENTATIVE Hospital Encounter [facility] Operating Room [address] [place] [address] [place] [address] [address] 10/23/2024 10:00 AM FUELS SALES REPRESENTATIVE - 10/23/2024 1:00 PM FUELS SALES REPRESENTATIVE Surgery [facility] Operating Room [address] [place] [address] [place] [address] [address] ARTHROPLASTY TOTAL KNEE LEFT Scheduled Procedures Name Priority Associated Diagnoses Date/Ti me ARTHROPLASTY TOTAL KNEE left knee osteoarthritis 10/23/2024 10:00 AM FUELS SALES REPRESENTATIVE ESOPHAGOGASTRODUODENOSCOPY Dysphagia, unspecified type documented as of this encounter Visit Diagnoses Not on filedocumented in this encounter Care Teams Attendant Campground Relationship Specialty Start Date End Date Wolfgang Serrano MD PCP - General Family Medicine 05/05/23 08/02/24 Unknown, Notinfile 03/12/22 [place] [address] [facility] [address] [place] [address] 03/12/22 Chuy Enriquez MD [address] [facility] [address] [place] [address] Consulting Physician Pulmonary Disease 10/13/23 Luis Felipe Cedillo MD [address] [facility] [address] [place] [address] Consulting Physician Gastroenterology 10/13/23 Marlene Thornton MD [address] [facility] [address] [address] Surgeon Vascular Surgery 11/10/23 documented as of this encounter
--- OUTSIDE RECORDS SUMMARY | 2024-10-11 03:00 | XMS_ITS | Encounter Summary ---
Author Organization [facility] Healthcare Address [address] [place] [address] Care Team Providers Care Communications Media Professor Name Role Phone Wolfgang Serrano MD Primary Care Provider Unknown, Notinfile Unavailable Unavailable Santino Funk MD Unavailable [phone] Chuy Enriquez MD Unavailable [phone] Luis Felipe Cedillo MD Unavailable Marlene Thornton MD Unavailable Reason for Visit * Auth/Cert (Routine) Specialty Diagnoses / Procedures Referred By Contac t Referred To Contact Referral ID Status Reason Start Date Expiration Date Visits Re quested Visits Authorized [id number] 1 60 Encounter Details Date Type Department Care Team (Late st Contact Info) Description 01/28/2024 4:00 PM CDT Home Care Visit [facility] Health [place] [address] [address] [place] [address] Sarah Paulino COTA OT HOME [...] materials from doctor or pharmacy Sometimes 01/09/2024 [facility] Utilities Answer Date Recorded In the [...] often do you attend chur ch or voodoo services? More than 4 times per year 12/16/2023 Do you belong to any clubs o r organizations such as shinto groups, unions, fraternal or athletic groups, or [...] Recorded Patient Health Questionnaire-2 Score 0 01/06/2024 [facility] [place] of Occupat ional Health - Occupational Stress [...] on file Legal Sex Male 3:25 PM LABORER PIE BAKERY Gender Identity Not on file Sexual Orientation [...] (Latest Contact Info) Description 10/23/2024 10:00 AM LABORER PIE BAKERY Hospital Encounter [facility] Operating Room [address] [place] [address] [place] [address] [address] 10/23/2024 10:00 AM LABORER PIE BAKERY - 10/23/2024 1:00 PM LABORER PIE BAKERY Surgery [facility] Operating Room [address] [place] [address] [place] [address] [address] ARTHROPLASTY TOTAL KNEE LEFT Scheduled Procedures Name Priority Associated Diagnoses Date/Ti me ARTHROPLASTY TOTAL KNEE left knee osteoarthritis 10/23/2024 10:00 AM LABORER PIE BAKERY ESOPHAGOGASTRODUODENOSCOPY Dysphagia, unspecified type documented as of [...] home health visit Disciplines: SN, PT, OT, WAFER LINE WORKER, COMMISSARY SUPERINTENDENT, Skilled Disciplines Monitor patient's vital signs every [...] visit during episode of care Description: Home industrial relations counselor to measure vital signs during every home [...] understanding. documented in this encounter Care Teams Communications Media Professor Relationship Specialty Start Date End Date Wolfgang Serrano MD PCP - General Family Medicine 05/05/23 08/02/24 Unknown, Notinfile 03/12/22 [place] [address] [address] 03/12/22 Chuy Enriquez MD [address] [facility] [address] [place] [address] Consulting Physician Pulmonary Disease 10/13/23 Luis Felipe Cedillo MD [address] [facility] [address] [address] Consulting Physician Gastroenterology 10/13/23 Marlene Thornton MD [address] [facility] [address] [address] Surgeon Vascular Surgery 11/10/23 documented as of this encounter
--- OUTSIDE RECORDS SUMMARY | 2024-10-11 03:00 | XMS_ITS | Encounter Summary ---
Author Organization [facility] Healthcare Address [address] [place] [address] Care Team Providers Care Education Supervisor Name Role Phone Wolfgang Serrano MD Primary Care Provider Unknown, Notinfile Unavailable Unavailable Santino Funk MD Unavailable Chuy Enriquez MD Unavailable Luis Felipe Cedillo MD Unavailable [phone] Marlene Thornton MD Unavailable Reason for Visit * Auth/Cert (Routine) Specialty Diagnoses / Procedures Referred By Contac t Referred To Contact Referral ID Status Reason Start Date Expiration Date Visits Re quested Visits Authorized [id number] 1 60 Encounter Details Date Type Department Care Team (Late st Contact Info) Description 02/25/2024 1:00 PM CDT Home Care Visit [facility] [place] [address] [address] [place] [address] Sarah Paulino COTA OT HOME [...] from doctor or pharmacy Sometimes 01/09/2024 [facility] Utilities Answer Date Recorded In [...] Recorded Patient Health Questionnaire-2 Score 0 01/06/2024 [facility] [place] of Occupat ional Health - Occupational Stress [...] slept in a residential (including now)? No 12/16/2023 Personal Safety Answer Date Recorded Have you ever been in or are you currently in a harmful physical or emotional relationship or is someone making you feel afraid or unsafe? Denies 12/15/2023 Sex and Gender Information Value Date Recorded Sex Assigned at Not on file Legal Sex Male 3:25 PM INSULATION CUPOLA CHARGER Gender Identity Not on file Sexual Orientation [...] (Latest Contact Info) Description 10/23/2024 10:00 AM INSULATION CUPOLA CHARGER Hospital Encounter [facility] Operating Room [address] [place] [address] [place] [address] [address] 10/23/2024 10:00 AM INSULATION CUPOLA CHARGER - 10/23/2024 1:00 PM INSULATION CUPOLA CHARGER Surgery [facility] Operating Room [address] [place] [address] [place] [address] [address] ARTHROPLASTY TOTAL KNEE LEFT Scheduled Procedures Name Priority Associated Diagnoses Date/Ti me ARTHROPLASTY TOTAL KNEE left knee osteoarthritis 10/23/2024 10:00 AM INSULATION CUPOLA CHARGER ESOPHAGOGASTRODUODENOSCOPY Dysphagia, unspecified type documented as of [...] home health visit Disciplines: SN, PT, OT, WILDLIFE VETERINARIAN, LUMBER CARRIER OPERATOR, Skilled Disciplines Monitor patient's vital signs [...] visit during episode of care Description: Home grommet machine operator to measure vital signs during [...] transfer. documented in this encounter Care Teams Education Supervisor Relationship Specialty Start Date End Date Wolfgang Serrano MD PCP - General Family Medicine 05/05/23 08/02/24 Unknown, Notinfile 03/12/22 [place] [address] [facility] [address] [place] [address] 03/12/22 Chuy Enriquez MD [address] [place] [address] Consulting Physician Pulmonary Disease 10/13/23 Luis Felipe Cedillo MD [address] [facility] [address], [place] [address] Consulting Physician Gastroenterology 10/13/23 Marlene Thornton MD [address] [facility] [address], [place] [address] Surgeon Vascular Surgery 11/10/23 documented as of this encounter
--- OUTSIDE RECORDS SUMMARY | 2024-10-11 03:00 | XMS_ITS | Encounter Summary ---
Author Organization [facility] Healthcare Address [address] [place] [address] Care Team Providers Care County Program Technician Name Role Phone Wolfgang Serrano MD Primary Care Provider Unknown, Notinfile Unavailable Unavailable Santino Funk MD Unavailable [phone] Chuy Enriquez MD Unavailable [phone] Luis Felipe Cedillo MD Unavailable [phone] Marlene Thornton MD Unavailable Reason for Visit * Auth/Cert (Routine) Specialty Diagnoses / Procedures Referred By Contac t Referred To Contact Referral ID Status Reason Start Date Expiration Date Visits Re quested Visits Authorized [id number] 1 60 Encounter Details Date Type Department Care Team (Late st Contact Info) Description 01/25/2024 9:30 AM CDT Home Care Visit [facility] Health [address] [address] [address] [place] [address] Anjelica Winter, VALVE MECHANIC VALVE MECHANIC HOME VISIT Social History Tobacco Use Types [...] from doctor or pharmacy Sometimes 01/09/2024 [facility] Utilities Answer Date Recorded In the past 12 months has e [employer], gas, oil, or water company threatened to [...] often do you attend chur ch or jainism services? More than 4 times per year [...] Recorded Patient Health Questionnaire-2 Score 0 01/06/2024 [facility] [place] of Occupat ional Health - Occupational Stress [...] file Legal Sex Male 3:25 PM BEVERAGE STEWARD Gender Identity Not on file Sexual Orientation [...] Contact Info) Description 10/23/2024 10:00 AM BEVERAGE STEWARD Hospital Encounter [facility] Operating Room [address] [place] [address] [place] [address] [address] 10/23/2024 10:00 AM BEVERAGE STEWARD - 10/23/2024 1:00 PM BEVERAGE STEWARD Surgery [facility] Operating Room [address] [place] [address] [place] [address] [address] ARTHROPLASTY TOTAL KNEE LEFT Scheduled Procedures Name Priority Associated Diagnoses Date/Ti me ARTHROPLASTY TOTAL KNEE left knee osteoarthritis 10/23/2024 10:00 AM BEVERAGE STEWARD ESOPHAGOGASTRODUODENOSCOPY Dysphagia, unspecified type documented as of this encounter Visit Diagnoses Not on filedocumented in this encounter Home Health Visit - Care Plan Visit Details Visit Type -VALVE MECHANIC Home Visit Discipline -Speech Language Pathology Problems Problem Description Start Date Status Goals Interventions Homebound Status Disciplines: Skilled Disciplines Patient's homebound status 01/09/2024 Active 1 goal linked to scheduled/docume nted intervention 1 goal intervention scheduled/documen ana in this visit Monitor patient's vital signs every home health visit Disciplines: SN, PT, OT, VALVE MECHANIC, TRANSPORT MANAGER, Skilled Disciplines Monitor patient's vital signs [...] goal interventions scheduled/documen ana in this visit VALVE MECHANIC Impaired Swallowing Disciplines: Speech Language Pathology Impaired [...] visit during episode of care Description: Home operator prefinish to measure vital signs during every home [...] (HEP) Description: Instruct patient/caregiver and perform HEP. Problem:VALVE MECHANIC Impaired Swallowing Completed Review and continued development of HEP for oral motor abilities with patient and patient caregiver demonstrating comprehension. Instruct appropriate strategies to prevent choking/aspiration Description: Instruct patient/caregiver on appropriate strategies to prevent choking / aspiration Problem:VALVE MECHANIC Impaired Swallowing Completed Education regarding safe swallow strategies including decreased rate, decreased bolus size, alternating liquids and solids, sitting up straight during and 30 - 45 minutes following oral intake, and adding extra moisture to foods when appropriate (extra sauce, gravy, condiments, syrup, etc) with patient demonstrating comprehension. Instruct on swallowing exercises Description: Teach swallow exercises Problem:VALVE MECHANIC Impaired Swallowing Completed Completed oral motor and [...] comprehension. documented in this encounter Care Teams County Program Technician Relationship Specialty Start Date End Date Wolfgang Serrano MD PCP - General Family Medicine 05/05/23 08/02/24 Unknown, Notinfile 03/12/22 [place] [address] [place] [address] 03/12/22 Chuy Enriquez MD [address] [place] [address] Consulting Physician Pulmonary Disease 10/13/23 Luis Felipe Cedillo MD [address] [place] [address] Consulting Physician Gastroenterology 10/13/23 Marlene Thornton MD [address], [place] [address] Surgeon Vascular Surgery 11/10/23 documented as of this encounter
--- OUTSIDE RECORDS SUMMARY | 2024-10-11 03:00 | XMS_ITS | Encounter Summary ---
Author Organization [facility] Healthcare Address [address] [place] [address] Care Team Providers Care Research Dietitian Name Role Phone Wolfgang Serrano MD Primary Care Provider Unknown, Notinfile Unavailable Unavailable Santino Funk MD Unavailable Chuy Enriquez MD Unavailable Luis Felipe Cedillo MD Unavailable Marlene Thornton MD Unavailable [phone] Reason for Visit * Auth/Cert (Routine) Specialty Diagnoses / Procedures Referred By Contac t Referred To Contact Referral ID Status Reason Start Date Expiration Date Visits Re quested Visits Authorized [id number] 1 60 Encounter Details Date Type Department Care Team (Late st Contact Info) Description 02/08/2024 1:00 PM CDT Home Care Visit [facility] Health [address] [place] [address] Bing Walker, DYE HOUSE SUPERVISOR PT HOME VISIT Social History Tobacco Use [...] Sometimes 01/09/2024 [facility] Utilities Answer Date Recorded In the past [...] Recorded Patient Health Questionnaire-2 Score 0 01/06/2024 [facility] [place] of Occupat ional Health - Occupational Stress [...] on file Legal Sex Male 3:25 PM VOCATIONAL CHILDCARE TEACHER Gender Identity Not on file Sexual [...] (Latest Contact Info) Description 10/23/2024 10:00 AM VOCATIONAL CHILDCARE TEACHER Hospital Encounter [facility] Operating Room [address] [place] [address] [place] [address] [address] 10/23/2024 10:00 AM VOCATIONAL CHILDCARE TEACHER - 10/23/2024 1:00 PM VOCATIONAL CHILDCARE TEACHER Surgery [facility] Operating Room [address] [place] [address] [place] [address] [address] ARTHROPLASTY TOTAL KNEE LEFT Scheduled Procedures Name Priority Associated Diagnoses Date/Ti me ARTHROPLASTY TOTAL KNEE left knee osteoarthritis 10/23/2024 10:00 AM VOCATIONAL CHILDCARE TEACHER ESOPHAGOGASTRODUODENOSCOPY Dysphagia, unspecified type documented as [...] health visit Disciplines: SN, PT, OT, MANAGER NC, PHYSICIAN UNDERWRITER, Skilled Disciplines Monitor patient's vital signs every [...] visit during episode of care Description: Home production controller to measure vital signs during every home [...] day documented in this encounter Care Teams Research Dietitian Relationship Specialty Start Date End Date Wolfgang Serrano MD PCP - General Family Medicine 05/05/23 08/02/24 Unknown, Notinfile 03/12/22 [place] [address] [facility] [address] [place] [address] 03/12/22 Chuy Enriquez MD [address] [place] [address] Consulting Physician Pulmonary Disease 10/13/23 Luis Felipe Cedillo MD [address] [address] Consulting Physician Gastroenterology 10/13/23 Marlene Thornton MD [address] [facility] [address] [address] Surgeon Vascular Surgery 11/10/23 documented as of this encounter
--- OUTSIDE RECORDS SUMMARY | 2024-10-11 03:00 | XMS_ITS | Encounter Summary ---
Author Organization [facility] Healthcare Address [address] [place] [address] Care Team Providers Care Shipmaster Name Role Phone Wolfgang Serrano MD Primary Care Provider Unknown, Notinfile Unavailable Unavailable Santino Funk MD Unavailable Chuy Enriquez MD Unavailable Luis Felipe Cedillo MD Unavailable Marlene Thornton MD Unavailable [phone] Reason for Visit * Auth/Cert (Routine) Specialty Diagnoses / Procedures Referred By Contac t Referred To Contact Referral ID Status Reason Start Date Expiration Date Visits Re quested Visits Authorized [id number] 1 60 Encounter Details Date Type Department Care Team (Late st Contact Info) Description 02/17/2024 11:30 AM CDT Home Care Visit [facility] Health [address] [address] [address] [place] [address] Kavya Basurto, OT OT REASSESSMENT [...] materials from doctor or pharmacy Sometimes 01/09/2024 [facility] Utilities Answer Date Recorded In the past 12 months has e [employer], gas, oil, or water company threatened [...] any clubs o r organizations such as amish groups, unions, fraternal or athletic groups, or [...] Patient Health Questionnaire-2 Score 0 01/06/2024 [facility] of Occupat ional Health - Occupational Stress [...] file Legal Sex Male 3:25 PM DIESEL TRAILER MECHANIC Gender Identity Not on file Sexual [...] was referred to [facility] s/p admission to [facility] from 12/07/2023 - 12/15/2023 (8 days) [...] Contact Info) Description 10/23/2024 10:00 AM DIESEL TRAILER MECHANIC Hospital Encounter [facility] Operating Room [address] [place] [address] [place] [address] [facility] [address] [place], [place] [id number] 10/23/2024 10:00 AM DIESEL TRAILER MECHANIC - 10/23/2024 1:00 PM DIESEL TRAILER MECHANIC Surgery [facility] Operating Room [address] [place] [address] [place] [address] [facility] [address] [place] [address] ARTHROPLASTY TOTAL KNEE LEFT Scheduled Procedures Name Priority Associated Diagnoses Date/Ti me ARTHROPLASTY TOTAL KNEE left knee osteoarthritis 10/23/2024 10:00 AM DIESEL TRAILER MECHANIC ESOPHAGOGASTRODUODENOSCOPY Dysphagia, unspecified type documented as [...] home health visit Disciplines: SN, PT, OT, FRONT MAN, CONTROL ROOM TECHNICIAN, Skilled Disciplines Monitor patient's vital signs every [...] visit during episode of care Description: Home electroencephalographic technologist to measure vital signs during every [...] information documented in this encounter Care Teams Shipmaster Relationship Specialty Start Date End Date Wolfgang Serrano MD PCP - General Family Medicine 05/05/23 08/02/24 Unknown, Notinfile 03/12/22 [place] [address] [place] [address] 03/12/22 Chuy Enriquez MD [address] [place] [address] Consulting Physician Pulmonary Disease 10/13/23 Luis Felipe Cedillo MD [address] [place] [address] Consulting Physician Gastroenterology 10/13/23 Marlene Thornton MD [address] [place] [address] Surgeon Vascular Surgery 11/10/23 documented as of this encounter
--- OUTSIDE RECORDS SUMMARY | 2024-10-11 03:00 | XMS_ITS | Encounter Summary ---
Author Organization [facility] Healthcare Address [address] [place] [address] Care Team Providers Care Electricity Trader Name Role Phone Wolfgang Serrano MD Primary Care Provider [phone] Unknown, Notinfile Unavailable Unavailable Santino Funk MD Unavailable [phone] Chuy Enriquez MD Unavailable Luis Felipe Cedillo MD Unavailable Marlene Thornton MD Unavailable Reason for Visit * Auth/Cert (Routine) Specialty Diagnoses / Procedures Referred By Contac t Referred To Contact Referral ID Status Reason Start Date Expiration Date Visits Re quested Visits Authorized [id number] 1 60 Encounter Details Date Type Department Care Team (Late st Contact Info) Description 01/31/2024 9:30 AM CDT Home Care Visit [facility] Health [address] [address] [address] [place] [address] Anjelica Winter, HYDROELECTRIC PLANT STRUCTURAL ENGINEER HYDROELECTRIC PLANT STRUCTURAL ENGINEER HOME VISIT Social History Tobacco Use Types [...] from doctor or pharmacy Sometimes 01/09/2024 [facility] Utilities Answer Date Recorded In the past 12 months has e [employer], gas, oil, or water company threatened to [...] any clubs o r organizations such as religious groups, unions, fraternal or athletic groups, or [...] Recorded Patient Health Questionnaire-2 Score 0 01/06/2024 [facility] [place] of Occupat ional Health - Occupational Stress [...] on file Legal Sex Male 3:25 PM WASTE AND BATTING WASTE CHOPPER Gender Identity Not on file Sexual Orientation [...] Plan for Next Visit - Anjelica Winter HYDROELECTRIC PLANT STRUCTURAL ENGINEER - 01/31/2024 10:04 AM CDT Reason for [...] (Latest Contact Info) Description 10/23/2024 10:00 AM WASTE AND BATTING WASTE CHOPPER Hospital Encounter [facility] Operating Room [address] [place] [address] [place] [address] [address] 10/23/2024 10:00 AM WASTE AND BATTING WASTE CHOPPER - 10/23/2024 1:00 PM WASTE AND BATTING WASTE CHOPPER Surgery [facility] Operating Room [address] [place] [address] [place] [address] [address] ARTHROPLASTY TOTAL KNEE LEFT Scheduled Procedures Name Priority Associated Diagnoses Date/Ti me ARTHROPLASTY TOTAL KNEE left knee osteoarthritis 10/23/2024 10:00 AM WASTE AND BATTING WASTE CHOPPER ESOPHAGOGASTRODUODENOSCOPY Dysphagia, unspecified type documented as of this encounter Visit Diagnoses Not on filedocumented in this encounter Home Health Visit - Care Plan Visit Details Visit Type -HYDROELECTRIC PLANT STRUCTURAL ENGINEER Home Visit Discipline -Speech Language Pathology Problems Problem Description Start Date Status Goals Interventions Homebound Status Disciplines: Skilled Disciplines Patient's homebound status 01/09/2024 Active 1 goal linked to scheduled/docume nted intervention 1 goal intervention scheduled/documen ana in this visit Monitor patient's vital signs every home health visit Disciplines: SN, PT, OT, HYDROELECTRIC PLANT STRUCTURAL ENGINEER, DRILL SERGEANT, Skilled Disciplines Monitor patient's vital signs every [...] goal interventions scheduled/documen ana in this visit HYDROELECTRIC PLANT STRUCTURAL ENGINEER Impaired Swallowing Disciplines: Speech Language Pathology Impaired [...] visit during episode of care Description: Home security delivery specialist to measure vital signs during every [...] (HEP) Description: Instruct patient/caregiver and perform HEP. Problem:HYDROELECTRIC PLANT STRUCTURAL ENGINEER Impaired Swallowing Completed Review and continued development of HEP for oral motor exercises with patient and patient caregiver demonstrating comprehension. Instruct appropriate strategies to prevent choking/aspiration Description: Instruct patient/caregiver on appropriate strategies to prevent choking / aspiration Problem:HYDROELECTRIC PLANT STRUCTURAL ENGINEER Impaired Swallowing Completed Review of safe swallow [...] comprehension. documented in this encounter Care Teams Electricity Trader Relationship Specialty Start Date End Date Wolfgang Serrano MD PCP - General Family Medicine 05/05/23 08/02/24 Unknown, Notinfile 03/12/22 [place] [address] [facility] [address] [place] [address] 03/12/22 Chuy Enriquez MD [address] [facility] [address] [place] [address] Consulting Physician Pulmonary Disease 10/13/23 Luis Felipe Cedillo MD [address] [facility] [address] [address] Consulting Physician Gastroenterology 10/13/23 Marlene Thornton MD [address] [facility] [address] [address] Surgeon Vascular Surgery 11/10/23 documented as of this encounter
--- OUTSIDE RECORDS SUMMARY | 2024-10-11 03:00 | XMS_ITS | Encounter Summary ---
Author Organization [facility] Healthcare Address [address] [place] [address] Care Team Providers Care Spine Surgeon Name Role Phone Wolfgang Serrano MD Primary Care Provider Unknown, Notinfile Unavailable Unavailable Santino Funk MD Unavailable Chuy Enriquez MD Unavailable [phone] Luis Felipe Cedillo MD Unavailable [phone] Marlene Thornton MD Unavailable [phone] Reason for Visit * Auth/Cert (Routine) Specialty Diagnoses / Procedures Referred By Contac t Referred To Contact Referral ID Status Reason Start Date Expiration Date Visits Re quested Visits Authorized [id number] 1 60 Encounter Details Date Type Department Care Team (Late st Contact Info) Description 02/22/2024 10:00 AM CDT Home Care Visit [facility] Health [address] [address] [address] [place] [address] Bing Walker, SENIOR ELECTRONICS TECHNICIAN PT HOME VISIT Social History Tobacco Use [...] doctor or pharmacy Sometimes 01/09/2024 [facility] Utilities Answer Date Recorded In the past [...] any clubs o r organizations such as adventism groups, unions, fraternal or athletic groups, or [...] Recorded Patient Health Questionnaire-2 Score 0 01/06/2024 [facility] of Occupat ional Health - Occupational Stress [...] on file Legal Sex Male 3:25 PM ADMITTING CLERK Gender Identity Not on file Sexual [...] (Latest Contact Info) Description 10/23/2024 10:00 AM ADMITTING CLERK Hospital Encounter [facility] Operating Room [address] [place] [address] [place] [address] [address] 10/23/2024 10:00 AM ADMITTING CLERK - 10/23/2024 1:00 PM ADMITTING CLERK Surgery [facility] Operating Room [address] [place] [address] [place] [address] [address] ARTHROPLASTY TOTAL KNEE LEFT Scheduled Procedures Name Priority Associated Diagnoses Date/Ti me ARTHROPLASTY TOTAL KNEE left knee osteoarthritis 10/23/2024 10:00 AM ADMITTING CLERK ESOPHAGOGASTRODUODENOSCOPY Dysphagia, unspecified type documented as [...] home health visit Disciplines: SN, PT, OT, SUPERVISOR [employer], FOOD SAFETY FIELD SPECIALIST, Skilled Disciplines Monitor patient's vital signs [...] visit during episode of care Description: Home rolling mill operator to measure vital signs during every [...] control documented in this encounter Care Teams Spine Surgeon Relationship Specialty Start Date End Date Wolfgang Serrano MD PCP - General Family Medicine 05/05/23 08/02/24 Unknown, Notinfile 03/12/22 [place] [address] [place] [address] 03/12/22 Chuy Enriquez MD [address] [place] [address] Consulting Physician Pulmonary Disease 10/13/23 Luis Felipe Cedillo MD [address] [place] [address] Consulting Physician Gastroenterology 10/13/23 Marlene Thornton MD [address], [place] [address] Surgeon Vascular Surgery 11/10/23 documented as of this encounter
--- OUTSIDE RECORDS SUMMARY | 2024-10-11 03:00 | XMS_ITS | Encounter Summary ---
Author Organization [facility] Healthcare Address [address] [place] [address] Care Team Providers Care Filler Shredder Machine Name Role Phone Wolfgang Serrano MD Primary Care Provider Unknown, Notinfile Unavailable Unavailable Santino Funk MD Unavailable [phone] Chuy Enriquez MD Unavailable [phone] Luis Felipe Cedillo MD Unavailable Marlene Thornton MD Unavailable Reason for Visit * Reason Comments Cerebrovascular Accident * Auth/Cert (Routine) Specialty Diagnoses / Procedures Referred By Contac t Referred To Contact Referral ID Status Reason Start Date Expiration Date Visits Re quested Visits Authorized [id number] 1 60 Encounter Details Date Type Department Care Team (Late st Contact Info) Description 02/17/2024 12:30 PM CDT Home Care Visit [facility] Health [address] [place] [address] Alaina Lopes PTA PT HOME [...] materials from doctor or pharmacy Sometimes 01/09/2024 [facility] Utilities Answer Date Recorded In the past 12 months has th e [employer], gas, oil, or water Over 40 Females threatened to shut off services in your [...] often do you attend chur ch or advent services? More than 4 times per year [...] Questionnaire-2 Score 0 01/06/2024 [facility] [place] of Occupat ional Health - Occupational Stress [...] on file Legal Sex Male 3:25 PM FARM EQUIPMENT MAINTENANCE SUPERVISOR Gender Identity Not on file Sexual [...] Plan for Next Visit - Alaina Lopes, AUTOMATIC OUTSOLE CUTTER - 02/17/2024 12:36 PM CDT Reason for [...] (Latest Contact Info) Description 10/23/2024 10:00 AM FARM EQUIPMENT MAINTENANCE SUPERVISOR Hospital Encounter [facility] Operating Room [address] [place] [address] [place] [address] [address] 10/23/2024 10:00 AM FARM EQUIPMENT MAINTENANCE SUPERVISOR - 10/23/2024 1:00 PM FARM EQUIPMENT MAINTENANCE SUPERVISOR Surgery [facility] Operating Room [address] [place] [address] [place] [address] [id number] ARTHROPLASTY TOTAL KNEE LEFT Scheduled Procedures Name Priority Associated Diagnoses Date/Ti me ARTHROPLASTY TOTAL KNEE left knee osteoarthritis 10/23/2024 10:00 AM FARM EQUIPMENT MAINTENANCE SUPERVISOR ESOPHAGOGASTRODUODENOSCOPY Dysphagia, unspecified type documented as [...] home health visit Disciplines: SN, PT, OT, GETTERER, PANAMA HAT BLOCKER, Skilled Disciplines Monitor patient's vital signs every [...] visit during episode of care Description: Home newswriter to measure vital signs during every home [...] exercises documented in this encounter Care Teams Filler Shredder Machine Relationship Specialty Start Date End Date Wolfgang Serrano MD PCP - General Family Medicine 05/05/23 08/02/24 Unknown, Notinfile 03/12/22 [place] [address] [place] [address] 03/12/22 Chuy Enriquez MD [address] [place] [address] Consulting Physician Pulmonary Disease 10/13/23 Luis Felipe Cedillo MD [address] [facility] [address] [place] [address] Consulting Physician Gastroenterology 10/13/23 Marlene Thornton MD [address] [facility] [address] [place] [address] Surgeon Vascular Surgery 11/10/23 documented as of this encounter
--- OUTSIDE RECORDS SUMMARY | 2024-10-11 03:00 | XMS_ITS | Encounter Summary ---
Author Organization [facility] Healthcare Address [address] [place] [address] Care Team Providers Care Passenger Service Representative Name Role Phone Wolfgang Serrano MD Primary Care Provider [phone] Unknown, Notinfile Unavailable Unavailable Santino Funk MD Unavailable [phone] Chuy Enriquez MD Unavailable Luis Felipe Cedillo MD Unavailable [phone] Marlene Thornton MD Unavailable Reason for Visit * Auth/Cert (Routine) Specialty Diagnoses / Procedures Referred By Contac t Referred To Contact Referral ID Status Reason Start Date Expiration Date Visits Re quested Visits Authorized [id number] 1 60 Encounter Details Date Type Department Care Team (Late st Contact Info) Description 02/07/2024 9:00 AM CDT Home Care Visit [facility] [address] [address] [address] [place] [address] Sarah Paulino COTA OT HOME [...] Recorded Patient Health Questionnaire-2 Score 0 01/06/2024 [facility] [place] of Occupat ional Health - Occupational Stress [...] file Legal Sex Male 3:25 PM RETAIL GIFT CARD MERCHANDISING Gender Identity Not on file Sexual Orientation [...] Contact Info) Description 10/23/2024 10:00 AM RETAIL GIFT CARD MERCHANDISING Hospital Encounter [facility] Operating Room [id number] [place] [address] [place] [address] [address] 10/23/2024 10:00 AM RETAIL GIFT CARD MERCHANDISING - 10/23/2024 1:00 PM RETAIL GIFT CARD MERCHANDISING Surgery [facility] Operating Room [id number] [place] [address] [place] [address] [address] ARTHROPLASTY TOTAL KNEE LEFT Scheduled Procedures Name Priority Associated Diagnoses Date/Ti me ARTHROPLASTY TOTAL KNEE left knee osteoarthritis 10/23/2024 10:00 AM RETAIL GIFT CARD MERCHANDISING ESOPHAGOGASTRODUODENOSCOPY Dysphagia, unspecified type documented as of [...] home health visit Disciplines: SN, PT, OT, PATTERN ASSEMBLER, SUPERVISOR PATCHING, Skilled Disciplines Monitor patient's vital signs every [...] visit during episode of care Description: Home escrow clerk to measure vital signs during every [...] understanding. documented in this encounter Care Teams Passenger Service Representative Relationship Specialty Start Date End Date Wolfgang Serrano MD PCP - General Family Medicine 05/05/23 08/02/24 Unknown, Notinfile 03/12/22 [place] [address] [place] [address] 03/12/22 Chuy Enriquez MD [address] [facility] [address] [place] [address] Consulting Physician Pulmonary Disease 10/13/23 Luis Felipe Cedillo MD [address] [facility] [address] [place] [address] Consulting Physician Gastroenterology 10/13/23 Marlene Thornton MD [address] [facility] [address] [address] Surgeon Vascular Surgery 11/10/23 documented as of this encounter
--- OUTSIDE RECORDS SUMMARY | 2024-10-11 03:00 | XMS_ITS | Encounter Summary ---
Author Organization [facility] Healthcare Address [address] [place] [address] Care Team Providers Care Oil Gauger Name Role Phone Wolfgang Serrano MD Primary Care Provider [phone] Unknown, Notinfile Unavailable Unavailable Santino Funk MD Unavailable Chuy Enriquez MD Unavailable [phone] Luis Felipe Cedillo MD Unavailable Marlene Thornton MD Unavailable Reason for Visit * Auth/Cert (Routine) Specialty Diagnoses / Procedures Referred By Contac t Referred To Contact Referral ID Status Reason Start Date Expiration Date Visits Re quested Visits Authorized [id number] 1 60 Encounter Details Date Type Department Care Team (Late st Contact Info) Description 01/21/2024 9:00 AM CDT Home Care Visit [facility] Health [address] [address] [address] [place] [address] Sarah Paulino COTA OT HOME [...] materials from doctor or pharmacy Sometimes 01/09/2024 [facility] Utilities Answer Date Recorded In the [...] Questionnaire-2 Score 0 01/06/2024 [facility] [place] of Occupat ional Health - Occupational Stress [...] file Legal Sex Male 3:25 PM MANAGER AEROSPACE Gender Identity Not on file Sexual Orientation [...] Contact Info) Description 10/23/2024 10:00 AM MANAGER AEROSPACE Hospital Encounter [facility] Operating Room [address] [place] [address] [place] [address] [address] 10/23/2024 10:00 AM MANAGER AEROSPACE - 10/23/2024 1:00 PM MANAGER AEROSPACE Surgery [facility] Operating Room [address] [place] [address] [place] [address] [address] ARTHROPLASTY TOTAL KNEE LEFT Scheduled Procedures Name Priority Associated Diagnoses Date/Ti me ARTHROPLASTY TOTAL KNEE left knee osteoarthritis 10/23/2024 10:00 AM MANAGER AEROSPACE ESOPHAGOGASTRODUODENOSCOPY Dysphagia, unspecified type documented as of [...] home health visit Disciplines: SN, PT, OT, SLUBBER RUNNER, INSOLE AND OUTSOLE SPLITTER, Skilled Disciplines Monitor patient's vital signs every [...] visit during episode of care Description: Home glue spreader to measure vital signs during every home [...] understanding. documented in this encounter Care Teams Oil Gauger Relationship Specialty Start Date End Date Wolfgang Serrano MD PCP - General Family Medicine 05/05/23 08/02/24 Unknown, Notinfile 03/12/22 [place] [address] [facility] [address] [place] [address] 03/12/22 Chuy Enriquez MD [address] [place] [address] Consulting Physician Pulmonary Disease 10/13/23 Luis Felipe Cedillo MD [address] [place] [address] Consulting Physician Gastroenterology 10/13/23 Marlene Thornton MD [address] [address] Surgeon Vascular Surgery 11/10/23 documented as of this encounter
--- OUTSIDE RECORDS SUMMARY | 2024-10-11 03:00 | XMS_ITS | Encounter Summary ---
Author Organization [facility] Healthcare Address [address] [place] [address] Care Team Providers Care Dish Network Installer Name Role Phone Wolfgang Serrano MD Primary Care Provider Unknown, Notinfile Unavailable Unavailable Santino Funk MD Unavailable [phone] Chuy Enriquez MD Unavailable [phone] Luis Felipe Cedillo MD Unavailable [phone] Marlene Thornton MD Unavailable Reason for Visit * Auth/Cert (Routine) Specialty Diagnoses / Procedures Referred By Contac t Referred To Contact Referral ID Status Reason Start Date Expiration Date Visits Re quested Visits Authorized [id number] 1 60 Encounter Details Date Type Department Care Team (Late st Contact Info) Description 01/31/2024 12:00 PM CDT Home Care Visit [facility] Health [address] [address] [address] [place] [address] Bing Walker, GENERAL PRODUCTION LABORER PT HOME VISIT Social History Tobacco Use [...] materials from doctor or pharmacy Sometimes 01/09/2024 [facility] Utilities Answer Date Recorded In the [...] often do you attend chur ch or taoism services? More than 4 times per year 12/16/2023 Do you belong to any clubs o r organizations such as taoist groups, unions, fraternal or athletic groups, or [...] Recorded Patient Health Questionnaire-2 Score 0 01/06/2024 [facility] [place] of Occupat ional Health - Occupational Stress [...] on file Legal Sex Male 3:25 PM FIELD SUPERVISOR SEED PRODUCTION Gender Identity Not on file Sexual Orientation [...] (Latest Contact Info) Description 10/23/2024 10:00 AM FIELD SUPERVISOR SEED PRODUCTION Hospital Encounter [facility] Operating Room [address] [place] [address] [place] [address] [address] 10/23/2024 10:00 AM FIELD SUPERVISOR SEED PRODUCTION - 10/23/2024 1:00 PM FIELD SUPERVISOR SEED PRODUCTION Surgery [facility] Operating Room [address] [place] [address] [place] [address] [address] ARTHROPLASTY TOTAL KNEE LEFT Scheduled Procedures Name Priority Associated Diagnoses Date/Ti me ARTHROPLASTY TOTAL KNEE left knee osteoarthritis 10/23/2024 10:00 AM FIELD SUPERVISOR SEED PRODUCTION ESOPHAGOGASTRODUODENOSCOPY Dysphagia, unspecified type documented as of [...] home health visit Disciplines: SN, PT, OT, TEST BAKER, DOPSTER, Skilled Disciplines Monitor patient's vital signs every home health visit. 01/09/2024 Active 1 goal linked to scheduled/docume nted intervention 1 goal intervention scheduled/documen ana in this visit Infection Prevention Disciplines: Skilled Disciplines Infection Prevention 01/09/2024 Active 1 goal linked to scheduled/docume nted intervention 2 goal interventions scheduled/documen naa in this visit Safety concerns Disciplines: Skilled [...] visit during episode of care Description: Home airport operations officer to measure vital signs during every home [...] today. documented in this encounter Care Teams Dish Network Installer Relationship Specialty Start Date End Date Wolfgang Serrano MD PCP - General Family Medicine 05/05/23 08/02/24 Unknown, Notinfile 03/12/22 [place] [address] [address] [facility] [address] [place] [address] 03/12/22 Chuy Enriquez MD [address] [facility] [address] [place], [place] [id number] Consulting Physician Pulmonary Disease 10/13/23 Luis Felipe Cedillo MD [address] [facility] [address], [place] [id number] Consulting Physician Gastroenterology 10/13/23 Marlene Thornton MD [address] [facility] [address], [place] [address] Surgeon Vascular Surgery 11/10/23 documented as of this encounter
--- OUTSIDE RECORDS SUMMARY | 2024-10-11 03:00 | XMS_ITS | Encounter Summary ---
Author Organization [facility] Healthcare Address [address] [place] [address] Care Team Providers Care Education Trainer Name Role Phone Wolfgang Serrano MD Primary Care Provider [phone] Unknown, Notinfile Unavailable Unavailable Santino Funk MD Unavailable Chuy Enriquez MD Unavailable [phone] Luis Felipe Cedillo MD Unavailable Marlene Thornton MD Unavailable Reason for Visit * Auth/Cert (Routine) Specialty Diagnoses / Procedures Referred By Contac t Referred To Contact Referral ID Status Reason Start Date Expiration Date Visits Re quested Visits Authorized [id number] 1 60 Encounter Details Date Type Department Care Team (Late st Contact Info) Description 01/19/2024 10:00 AM CDT Home Care Visit [facility] Health [address] [place] [address] Anjelica Winter, KELLY MACHINE OPERATOR KELLY MACHINE OPERATOR HOME VISIT Social History Tobacco Use Types [...] materials from doctor or pharmacy Sometimes 01/09/2024 [facility] Utilities Answer Date Recorded In the past 12 months has e [employer], gas, oil, or water company threatened to [...] Recorded Patient Health Questionnaire-2 Score 0 01/06/2024 [facility] [place] of Occupat ional Health - Occupational Stress [...] on file Legal Sex Male 3:25 PM SALES CORRESPONDENT Gender Identity Not on file Sexual Orientation [...] (Latest Contact Info) Description 10/23/2024 10:00 AM SALES CORRESPONDENT Hospital Encounter [facility] Operating Room [address] [place] [address] [place] [address] [address] 10/23/2024 10:00 AM SALES CORRESPONDENT - 10/23/2024 1:00 PM SALES CORRESPONDENT Surgery [facility] Operating Room [address] [place] [address] [place] [address] [address] ARTHROPLASTY TOTAL KNEE LEFT Scheduled Procedures Name Priority Associated Diagnoses Date/Ti me ARTHROPLASTY TOTAL KNEE left knee osteoarthritis 10/23/2024 10:00 AM SALES CORRESPONDENT ESOPHAGOGASTRODUODENOSCOPY Dysphagia, unspecified type documented as of this encounter Visit Diagnoses Not on filedocumented in this encounter Home Health Visit - Care Plan Visit Details Visit Type -KELLY MACHINE OPERATOR Home Visit Discipline -Speech Language Pathology Problems Problem Description Start Date Status Goals Interventions Homebound Status Disciplines: Skilled Disciplines Patient's homebound status 01/09/2024 Active 1 goal linked to scheduled/docume nted intervention 1 goal intervention scheduled/documen ana in this visit Monitor patient's vital signs every home health visit Disciplines: SN, PT, OT, KELLY MACHINE OPERATOR, STOCK FITTER, Skilled Disciplines Monitor patient's vital signs every [...] goal interventions scheduled/documen ana in this visit KELLY MACHINE OPERATOR Impaired Swallowing Disciplines: Speech Language Pathology Impaired [...] visit during episode of care Description: Home recreation teacher to measure vital signs during every home [...] (HEP) Description: Instruct patient/caregiver and perform HEP. Problem:KELLY MACHINE OPERATOR Impaired Swallowing Completed Initial development of HEP for oral motor abilities with patient and patient caregiver demonstrating comprehension, handout provided. Instruct appropriate strategies to prevent choking/aspiration Description: Instruct patient/caregiver on appropriate strategies to prevent choking / aspiration Problem:KELLY MACHINE OPERATOR Impaired Swallowing Completed Education regarding safe swallow strategies including decreased rate, decreased bolus size, alternating liquids and solids, sitting up straight during and 30 - 45 minutes following oral intake, and adding extra moisture to foods when appropriate (extra sauce, gravy, condiments, syrup, etc) with patient demonstrating comprehension. Instruct on swallowing exercises Description: Teach swallow exercises Problem:KELLY MACHINE OPERATOR Impaired Swallowing Completed Completed oral motor exercises including labial protrusion, retraction, lateralization, and closure and lingual protrusion, lateralization, and sweep with skilled v/v instruction provided as need. documented in this encounter Care Teams Education Trainer Relationship Specialty Start Date End Date Wolfgang Serrano MD PCP - General Family Medicine 05/05/23 08/02/24 Unknown, Notinfile 03/12/22 [place] [address] [address] [place] [address] 03/12/22 Chuy Enriquez MD [address] [facility] [address] [place] [address] Consulting Physician Pulmonary Disease 10/13/23 Luis Felipe Cedillo MD [address] [facility] [address] [address] Consulting Physician Gastroenterology 10/13/23 Marlene Thornton MD [address] [facility] [address] [address] Surgeon Vascular Surgery 11/10/23 documented as of this encounter
--- OUTSIDE RECORDS SUMMARY | 2024-10-11 03:00 | XMS_ITS | Encounter Summary ---
Author Organization [facility] Healthcare Address [address] [place] [address] Care Team Providers Care Trust Mail Clerk Name Role Phone Wolfgang Serrano MD Primary Care Provider Unknown, Notinfile Unavailable Unavailable Santino Funk MD Unavailable [phone] Chuy Enriquez MD Unavailable Luis Felipe Cedillo MD Unavailable Marlene Thornton MD Unavailable [phone] Reason for Referral * MRI/CAT/PET Scan (Routine) - Pending Review Specialty Diagnoses / Procedures Referred By Contac t Referred To Contact Radiology Diagnoses Nocturnal cough Lung nodule Procedures CT chest without contrast Chuy Enriquez MD [address] [facility] [address] [place] [address] Phone: tel: fax: [facility] [address] [place] [address] Referral ID Status Reason Start Date Expiration Date V isits Requested Visits Authorized [id number] Pending Review 01/24/2024 02/22/2025 1 1 Encounter Details Date Type Department Care Team (Late st Contact Info) Description 01/24/2024 9:45 AM CDT Office Visit [facility] [address] [place] [address] Chuy Enriquez MD [address] [facility] [address] [place] [address] Nocturnal cough (Primary Dx); Lung [...] has e electric, gas, oil, or water [employer] threatened to shut off services in your [...] Recorded Patient Health Questionnaire-2 Score 0 01/06/2024 [facility] [place] of Occupat ional Health - Occupational Stress [...] on file Legal Sex Male 3:25 PM DISABILITY MANAGER Gender Identity Not on file Sexual [...] a 78 y.o. male is referred by [facility] for evaluation of lungs Background [...] Prior malignancy hx None Pertinent labs from [facility] and care everywhere reviewed. Available imaging from [facility] personally reviewed Radiology reports from care everywhere reviewed and imaging requested Past Medical History: Diagnosis Date Acute gastric ulcer without hemorrhage or perforation Ulcer, gastric, acute - (Added by TW Conv) Alzheimer's dementia ([facility]) Asthma Back pain Cataract Closed fracture of left tibial plateau with delayed healing Closed fracture of right tibial plateau with delayed healing Closed nondisplaced osteochondral fracture of left patella with delayed healing Closed osteochondral fracture of patella, right, with delayed healing, subsequent encounter Clotting disorder ([facility]) ([facility]) Complex [...] of condyle of left femur ([facility]) ([facility]) Vertigo Vision changes Visual [...] (Latest Contact Info) Description 10/23/2024 10:00 AM DISABILITY MANAGER Hospital Encounter [facility] Operating Room [id number] [place] [address] [place] [address] [place] [address] [address] 10/23/2024 10:00 AM DISABILITY MANAGER - 10/23/2024 1:00 PM DISABILITY MANAGER Surgery [facility] Operating Room [id number] [place] [address] [place] [address] [id number] ARTHROPLASTY TOTAL KNEE LEFT Scheduled Orders Name Type Priority Associated Diagnoses Orde r Schedule CT chest without contrast Imaging Schedule Routine, Read Routine (OP Routine) Nocturnal cough Lung nodule Expected: 01/24/2024, Expires: 01/23/2025 Scheduled Procedures Name Priority Associated Diagnoses Date/Ti me ARTHROPLASTY TOTAL KNEE left knee osteoarthritis 10/23/2024 10:00 AM DISABILITY MANAGER ESOPHAGOGASTRODUODENOSCOPY Dysphagia, unspecified type documented as of this encounter Visit Diagnoses Diagnosis Nocturnal cough- Primary Lung nodule Other diseases of lung, not elsewhere classified documented in this encounter Care Teams Trust Mail Clerk Relationship Specialty Start Date End Date Wolfgang Serrano MD PCP - General Family Medicine 05/05/23 08/02/24 Unknown, Notinfile 03/12/22 [place] [address] [facility] [address] [place] [address] 03/12/22 Chuy Enriquez MD [address] [place] [address] Consulting Physician Pulmonary Disease 10/13/23 Luis Felipe Cedillo MD [address] [place] [address] Consulting Physician Gastroenterology 10/13/23 Marlene Thornton MD [address] [place] [address] Surgeon Vascular Surgery 11/10/23 documented as of this encounter
--- OUTSIDE RECORDS SUMMARY | 2024-10-11 03:00 | XMS_ITS | Encounter Summary ---
Author Organization [facility] Healthcare Address [address] [place] [address] Care Team Providers Care Outpatient Physical Therapist Assistant Name Role Phone Wolfgang Serrano MD Primary Care Provider [phone] Unknown, Notinfile Unavailable Unavailable Santino Funk MD Unavailable Chuy Enriquez MD Unavailable Luis Felipe Cedillo MD Unavailable [phone] Marlene Thornton MD Unavailable Reason for Visit * Auth/Cert (Routine) Specialty Diagnoses / Procedures Referred By Contac t Referred To Contact Referral ID Status Reason Start Date Expiration Date Visits Re quested Visits Authorized [id number] 1 60 Encounter Details Date Type Department Care Team (Late st Contact Info) Description 01/27/2024 1:30 PM CDT Home Care Visit [facility] Health [address] [address] [address] [place] [address] Jacque Tolliver, PT PT REASSESSMENT [...] from doctor or pharmacy Sometimes 01/09/2024 [facility] Utilities Answer Date Recorded In the [...] any clubs o r organizations such as mandaen groups, unions, fraternal or athletic groups, or [...] Health Questionnaire-2 Score 0 01/06/2024 [facility] [place] of Occupat ional Health - Occupational Stress [...] on file Legal Sex Male 3:25 PM CARRIAGE RIDER Gender Identity Not on file Sexual Orientation [...] (Latest Contact Info) Description 10/23/2024 10:00 AM CARRIAGE RIDER Hospital Encounter [facility] Operating Room [address] [place] [address] [place] [address] [address] 10/23/2024 10:00 AM CARRIAGE RIDER - 10/23/2024 1:00 PM CARRIAGE RIDER Surgery [facility] Operating Room [address] [place] [address] [place] [address] [address] ARTHROPLASTY TOTAL KNEE LEFT Scheduled Procedures Name Priority Associated Diagnoses Date/Ti me ARTHROPLASTY TOTAL KNEE left knee osteoarthritis 10/23/2024 10:00 AM CARRIAGE RIDER ESOPHAGOGASTRODUODENOSCOPY Dysphagia, unspecified type documented as of [...] home health visit Disciplines: SN, PT, OT, TRUANT OFFICER, RECREATION THERAPY TEACHER, Skilled Disciplines Monitor patient's vital signs [...] visit during episode of care Description: Home potash flaker to measure vital signs during every home [...] Completed documented in this encounter Care Teams Outpatient Physical Therapist Assistant Relationship Specialty Start Date End Date Wolfgang Serrano MD PCP - General Family Medicine 05/05/23 08/02/24 Unknown, Notinfile 03/12/22 [place] [address] [facility] [address] [place] [address] 03/12/22 Chuy Enriquez MD [address] [place] [address] Consulting Physician Pulmonary Disease 10/13/23 Luis Felipe Cedillo MD [address] [place] [address] Consulting Physician Gastroenterology 10/13/23 Marlene Thornton MD [address] [facility] [address], [place] [address] Surgeon Vascular Surgery 11/10/23 documented as of this encounter
--- OUTSIDE RECORDS SUMMARY | 2024-10-11 03:00 | XMS_ITS | Encounter Summary ---
Author Organization [facility] Healthcare Address [address] [place] [address] Care Team Providers Care Flour Inspector Name Role Phone Wolfgang Serrano MD Primary Care Provider Unknown, Notinfile Unavailable Unavailable Santino Funk MD Unavailable [phone] Chuy Enriquez MD Unavailable [phone] Luis Felipe Cedillo MD Unavailable Marlene Thornton MD Unavailable Reason for Visit * Auth/Cert (Routine) Specialty Diagnoses / Procedures Referred By Contac t Referred To Contact Referral ID Status Reason Start Date Expiration Date Visits Re quested Visits Authorized [id number] 1 60 Encounter Details Date Type Department Care Team (Late st Contact Info) Description 02/23/2024 4:00 PM CDT Home Care Visit [facility] Health [address] [address] [address] [place] [address] Sarah Paulino COTA OT HOME [...] materials from doctor or pharmacy Sometimes 01/09/2024 [facility] [...] often do you attend chur ch or zoroastrian services? More than 4 times per year [...] Recorded Patient Health Questionnaire-2 Score 0 01/06/2024 [facility] [place] of Occupat ional Health - Occupational [...] file Legal Sex Male 3:25 PM BUSINESS ANALYST INTERN Gender Identity Not on file Sexual [...] Contact Info) Description 10/23/2024 10:00 AM BUSINESS ANALYST INTERN Hospital Encounter Operating Room [address] [place] [address] [place] [address] [address] 10/23/2024 10:00 AM BUSINESS ANALYST INTERN - 10/23/2024 1:00 PM BUSINESS ANALYST INTERN Surgery Operating Room [address] [place] [address] [place] [address] [address] ARTHROPLASTY TOTAL KNEE LEFT Scheduled Procedures Name Priority Associated Diagnoses Date/Ti me ARTHROPLASTY TOTAL KNEE left knee osteoarthritis 10/23/2024 10:00 AM BUSINESS ANALYST INTERN ESOPHAGOGASTRODUODENOSCOPY Dysphagia, unspecified type documented as [...] home health visit Disciplines: SN, PT, OT, CHILD NURSE, DIRECTOR OF RESEARCH CENTER, Skilled Disciplines Monitor patient's vital signs every [...] visit during episode of care Description: Home mortar mixer to measure vital signs during every home [...] understanding. documented in this encounter Care Teams Flour Inspector Relationship Specialty Start Date End Date Wolfgang Serrano MD PCP - General Family Medicine 05/05/23 08/02/24 Unknown, Notinfile 03/12/22 [place] [address] [place] [address] 03/12/22 Chuy Enriquez MD [address] [place] [address] Consulting Physician Pulmonary Disease 10/13/23 Luis Felipe Cedillo MD [address] [place] [address] Consulting Physician Gastroenterology 10/13/23 Marlene Thornton MD [address], [place] [address] Surgeon Vascular Surgery 11/10/23 documented as of this encounter
--- OUTSIDE RECORDS SUMMARY | 2024-10-11 03:00 | XMS_ITS | Encounter Summary ---
Author Organization [facility] Healthcare Address [address] [place] [address] Care Team Providers Care Artisan Plasterer Name Role Phone Wolfgang Serrano MD Primary Care Provider Unknown, Notinfile Unavailable Unavailable Santino Funk MD Unavailable Chuy Enriquez MD Unavailable Luis Felipe Cedillo MD Unavailable [phone] Marlene Thornton MD Unavailable Reason for Referral * Diagnostic Imaging (Routine) - Closed Specialty Diagnoses / Procedures Referred By Contac t Referred To Contact Diagnoses Moderate malnutrition (CMS/HCC) (HCC) Dysphagia, unspecified type Procedures FL Esophagram, Single Contrast Yfn Roe MD [address] [facility] [address] [place] [address] Phone: tel: fax: [address] [phone] Referral ID Status Reason Start Date Expiration Date Visits Re quested Visits Authorized [id number] Closed 02/04/2024 03/05/2025 1 1 Reason for Visit * Diagnostic Imaging (Routine) - Closed Specialty Diagnoses / Procedures Referred By Contac t Referred To Contact Diagnoses Moderate malnutrition (CMS/HCC) (HCC) Dysphagia, unspecified type Procedures FL Esophagram, Single Contrast Yfn Roe MD [address] [place] [address] Phone: tel: fax: [address] [phone] Referral ID Status Reason Start Date Expiration Date Visits Re quested Visits Authorized [id number] Closed 02/04/2024 03/05/2025 1 1 Encounter Details Date Type Department Care Team (Latest Contact Info) Description 02/14/2024 11:15 AM CDT - 02/14/2024 11:59 PM CDT Hospital Encounter [facility] [address] [place] [id number] Moderate malnutrition (CMS/HCC); Dysphagia, unspecified type [...] materials from doctor or pharmacy Sometimes 01/09/2024 [facility] Utilities Answer Date Recorded In the past 12 months has th e [employer], gas, oil, or water company threatened to [...] any clubs o r organizations such as nondenominational groups, unions, fraternal or athletic groups, or [...] Recorded Patient Health Questionnaire-2 Score 0 01/06/2024 [facility] of Occupat ional Health - Occupational [...] on file Legal Sex Male 3:25 PM PRECISION JIG GRINDER Gender Identity Not on file Sexual [...] (Latest Contact Info) Description 10/23/2024 10:00 AM PRECISION JIG GRINDER Hospital Encounter [facility] Operating Room [address] [place] [address] [place] [id number] [place] [address] 10/23/2024 10:00 AM PRECISION JIG GRINDER - 10/23/2024 1:00 PM [facility] Surgery [facility] Operating Room [address] [place] [address] [place] [address] [address] ARTHROPLASTY TOTAL KNEE LEFT Scheduled Procedures Name Priority Associated Diagnoses Date/Ti nm ARTHROPLASTY TOTAL KNEE left knee osteoarthritis 10/23/2024 10:00 AM PRECISION JIG GRINDER ESOPHAGOGASTRODUODENOSCOPY Dysphagia, unspecified type documented as [...] mL documented in this encounter Care Teams Artisan Plasterer Relationship Specialty Start Date End Date Wolfgang Serrano MD PCP - General Family Medicine 05/05/23 08/02/24 Unknown, Notinfile 03/12/22 [place] [address] [place] [address] 03/12/22 Chuy Enriquez MD [address] [place] [address] Consulting Physician Pulmonary Disease 10/13/23 Luis Felipe Cedillo MD [address] [place] [address] Consulting Physician Gastroenterology 10/13/23 Marlene Thornton MD [address] [facility] [address] [place] [address] Surgeon Vascular Surgery 11/10/23 documented as of this encounter
--- OUTSIDE RECORDS SUMMARY | 2024-10-11 03:00 | XMS_ITS | Encounter Summary ---
Author Organization [facility] Healthcare Address [address] [place] [address] Care Team Providers Care Mortgage Originator Name Role Phone Wolfgang Serrano MD Primary Care Provider Unknown, Notinfile Unavailable Unavailable Santino Funk MD Unavailable Chuy Enriquez MD Unavailable [phone] Luis Felipe Cedillo MD Unavailable Marlene Thornton MD Unavailable Reason for Visit * Auth/Cert (Routine) Specialty Diagnoses / Procedures Referred By Contac t Referred To Contact Referral ID Status Reason Start Date Expiration Date Visits Re quested Visits Authorized [id number] 1 60 Encounter Details Date Type Department Care Team (Late st Contact Info) Description 01/31/2024 4:00 PM CDT Home Care Visit [facility] Health [address] [address] [address] [place] [address] Sarah Paulino COTA OT HOME [...] materials from doctor or pharmacy Sometimes 01/09/2024 [facility] Utilities Answer Date Recorded In [...] Questionnaire-2 Score 0 01/06/2024 [facility] [place] of Occupat ional Health - Occupational Stress [...] on file Legal Sex Male 3:25 PM ORE STORAGE DRIER Gender Identity Not on file Sexual Orientation [...] (Latest Contact Info) Description 10/23/2024 10:00 AM ORE STORAGE DRIER Hospital Encounter [facility] Operating Room [address] [place] [address] [place] [address] [address] 10/23/2024 10:00 AM ORE STORAGE DRIER - 10/23/2024 1:00 PM ORE STORAGE DRIER Surgery [facility] Operating Room [address] [place] [address] [place] [address] [address] ARTHROPLASTY TOTAL KNEE LEFT Scheduled Procedures Name Priority Associated Diagnoses Date/Ti me ARTHROPLASTY TOTAL KNEE left knee osteoarthritis 10/23/2024 10:00 AM ORE STORAGE DRIER ESOPHAGOGASTRODUODENOSCOPY Dysphagia, unspecified type documented as of [...] home health visit Disciplines: SN, PT, OT, PHONE MANAGER, BORING MILL SET UP OPERATOR, Skilled Disciplines Monitor patient's vital signs [...] spouse. documented in this encounter Care Teams Mortgage Originator Relationship Specialty Start Date End Date Wolfgang Serrano MD PCP - General Family Medicine 05/05/23 08/02/24 Unknown, Notinfile 03/12/22 [place] [address] [place] [address] 03/12/22 Chuy Enriquez MD [address] [place] [address] Consulting Physician Pulmonary Disease 10/13/23 Luis Felipe Cedillo MD [address] [place] [address] Consulting Physician Gastroenterology 10/13/23 Marlene Thornton MD [address] [place] [address] Surgeon Vascular Surgery 11/10/23 documented as of this encounter
--- OUTSIDE RECORDS SUMMARY | 2024-10-11 03:00 | XMS_ITS | Encounter Summary ---
Author Organization [facility] Healthcare Address [address] [place] [address] Care Team Providers Care Towboat Engineer Name Role Phone Wolfgang Serrano MD Primary Care Provider Unknown, Notinfile Unavailable Unavailable Santino Funk MD Unavailable Chuy Enriquez MD Unavailable Luis Felipe Cedillo MD Unavailable [phone] Marlene Thornton MD Unavailable [phone] Reason for Visit * Auth/Cert (Routine) Specialty Diagnoses / Procedures Referred By Contac t Referred To Contact Referral ID Status Reason Start Date Expiration Date Visits Re quested Visits Authorized [id number] 1 60 Encounter Details Date Type Department Care Team (Late st Contact Info) Description 02/04/2024 11:00 AM CDT Home Care Visit [facility] Health [address] [address] [address] [place] [address] Bing Walker, ZINC PLATING MACHINE OPERATOR PT HOME VISIT Social History Tobacco [...] materials from doctor or pharmacy Sometimes 01/09/2024 [facility] Utilities Answer Date Recorded In the [...] Recorded Patient Health Questionnaire-2 Score 0 01/06/2024 [facility] [place] of Occupat ional Health - Occupational Stress [...] on file Legal Sex Male 3:25 PM BARN HAND Gender Identity Not on file Sexual [...] (Latest Contact Info) Description 10/23/2024 10:00 AM BARN HAND Hospital Encounter [facility] Operating Room [address] [place] [address] [place] [address] [address] 10/23/2024 10:00 AM BARN HAND - 10/23/2024 1:00 PM BARN HAND Surgery [facility] Operating Room [address] [place] [address] [place] [address] [address] ARTHROPLASTY TOTAL KNEE LEFT Scheduled Procedures Name Priority Associated Diagnoses Date/Ti me ARTHROPLASTY TOTAL KNEE left knee osteoarthritis 10/23/2024 10:00 AM BARN HAND ESOPHAGOGASTRODUODENOSCOPY Dysphagia, unspecified type documented as [...] home health visit Disciplines: SN, PT, OT, BADGER DISTILLER OPERATOR, PIPED BUTTONHOLE MACHINE OPERATOR, Skilled Disciplines Monitor patient's vital [...] visit during episode of care Description: Home primary clinician to measure vital signs during every [...] well documented in this encounter Care Teams Towboat Engineer Relationship Specialty Start Date End Date Wolfgang Serrano MD PCP - General Family Medicine 05/05/23 08/02/24 Unknown, Notinfile 03/12/22 [place] [address] [place] [address] 03/12/22 Chuy Enriquez MD [address] [place] [address] Consulting Physician Pulmonary Disease 10/13/23 Luis Felipe Cedillo MD [address] [address] Consulting Physician Gastroenterology 10/13/23 Marlene Thornton MD [address] [place] [address] Surgeon Vascular Surgery 11/10/23 documented as of this encounter
--- OUTSIDE RECORDS SUMMARY | 2024-10-11 03:00 | XMS_ITS | Encounter Summary ---
Author Organization [facility] Address [address] [place] [address] Phone Care Team Providers Care Sizer Hand Name Role Phone Wolfgang Serrano MD Primary Care Provider Unknown, Notinfile Unavailable Unavailable Santino Funk MD Unavailable [phone] Chuy Enriquez MD Unavailable [phone] Luis Felipe Cedillo MD Unavailable [phone] Marlene Thornton MD Unavailable [phone] Reason for Referral * Diagnostic Imaging (Routine) - Closed Specialty Diagnoses / Procedures Referred By Contac t Referred To Contact Diagnoses Moderate malnutrition (CMS/HCC) (HCC) Dysphagia, unspecified type Procedures FL Esophagram, Single Contrast Yfn Roe MD [address] [place] [address] Phone: tel: fax: [address] [phone] Referral ID Status Reason Start Date Expiration Date Visits Re quested Visits Authorized [id number] Closed 02/04/2024 03/05/2025 1 1 Encounter Details Date Type Department Care Team (Late st Contact Info) Description 02/04/2024 Orders Only [facility] Gastroenterology [address] [facility] [address] [place] [address] Jenni Eddy RN Dysphagia, unspecified [...] doctor or pharmacy Sometimes 01/09/2024 [facility] Utilities Answer Date Recorded In the past 12 months has [employer] electric, gas, oil, or water company threatened [...] Health Questionnaire-2 Score 0 01/06/2024 [facility] [place] of Occupat ional Health - Occupational Stress [...] on file Legal Sex Male 3:25 PM FURNACE LOADER Gender Identity Not on file Sexual Orientation Not on file documented as of this encounter Plan of Treatment Upcoming Encounters Date Type Department Care Team (Latest Contact Info) Description 10/23/2024 10:00 AM FURNACE LOADER Hospital Encounter [facility] Operating Room [address] [place] [address] [place] [address] [address] 10/23/2024 10:00 AM FURNACE LOADER - 10/23/2024 1:00 PM FURNACE LOADER Surgery [facility] Operating Room [id number] [place] [address] [place] [address] [address] ARTHROPLASTY TOTAL KNEE LEFT Scheduled Procedures Name Priority Associated Diagnoses Date/Ti me ARTHROPLASTY TOTAL KNEE left knee osteoarthritis 10/23/2024 10:00 AM FURNACE LOADER ESOPHAGOGASTRODUODENOSCOPY Dysphagia, unspecified type documented as of [...] type documented in this encounter Care Teams Sizer Hand Relationship Specialty Start Date End Date Wolfgang Serrano MD PCP - General Family Medicine 05/05/23 08/02/24 Unknown, Notinfile 03/12/22 [place] [address] [facility] [address] [place] [address] 03/12/22 Chuy Enriquez MD [address] [place] [address] Consulting Physician Pulmonary Disease 10/13/23 Luis Felipe Cedillo MD [address] [place], [place] [address] Consulting Physician Gastroenterology 10/13/23 Marlene Thornton MD [address] [facility] [address], [place] [address] Surgeon Vascular Surgery 11/10/23 documented as of this encounter
--- OUTSIDE RECORDS SUMMARY | 2024-10-11 03:00 | XMS_ITS | Encounter Summary ---
Author Organization [facility] Healthcare Address [address] [place] [address] Care Team Providers Care Candy Polisher Name Role Phone Wolfgang Serrano MD Primary Care Provider Unknown, Notinfile Unavailable Unavailable Santino Funk MD Unavailable Chuy Enriquez MD Unavailable [phone] Luis Felipe Cedillo MD Unavailable Marlene Thornton MD Unavailable Reason for Visit * Auth/Cert (Routine) Specialty Diagnoses / Procedures Referred By Contac t Referred To Contact Referral ID Status Reason Start Date Expiration Date Visits Re quested Visits Authorized [id number] 1 60 Encounter Details Date Type Department Care Team (Late st Contact Info) Description 01/26/2024 10:00 AM CDT Home Care Visit [facility] Health [address] [address] [address] [place] [address] Sarah Paulino COTA OT HOME [...] often do you attend chur ch or congregational services? More than 4 times per year 12/16/2023 Do you belong to any clubs o r organizations such as scientologist groups, unions, fraternal or athletic groups, or [...] 0 01/06/2024 [facility] [place] of Occupat ional Health - Occupational Stress [...] on file Legal Sex Male 3:25 PM NETWORK LEAD Gender Identity Not on file Sexual [...] (Latest Contact Info) Description 10/23/2024 10:00 AM NETWORK LEAD Hospital Encounter [facility] Operating Room [address] [place] [address] [place] [address] [address] 10/23/2024 10:00 AM NETWORK LEAD - 10/23/2024 1:00 PM NETWORK LEAD Surgery [facility] Operating Room [address] [place] [address] [place] [address] [address] ARTHROPLASTY TOTAL KNEE LEFT Scheduled Procedures Name Priority Associated Diagnoses Date/Ti me ARTHROPLASTY TOTAL KNEE left knee osteoarthritis 10/23/2024 10:00 AM NETWORK LEAD ESOPHAGOGASTRODUODENOSCOPY Dysphagia, unspecified type documented as [...] home health visit Disciplines: SN, PT, OT, TISSUE RECOVERY TECHNICIAN, POWER TRANSMISSION ENGINEER, Skilled Disciplines Monitor patient's vital signs every [...] visit during episode of care Description: Home mechanical project manager to measure vital signs during every [...] SBA/supervision. documented in this encounter Care Teams Candy Polisher Relationship Specialty Start Date End Date Wolfgang Serrano MD PCP - General Family Medicine 05/05/23 08/02/24 Unknown, Notinfile 03/12/22 [place] [address] [place] [address] 03/12/22 Chuy Enriquez MD [address] [place] [address] Consulting Physician Pulmonary Disease 10/13/23 Luis Felipe Cedillo MD [address] [facility] [address], [place] [address] Consulting Physician Gastroenterology 10/13/23 Marlene Thornton MD [address] [facility] [address], [place] [address] Surgeon Vascular Surgery 11/10/23 documented as of this encounter
--- OUTSIDE RECORDS SUMMARY | 2024-10-11 03:00 | XMS_ITS | Encounter Summary ---
Author Organization [facility] Healthcare Address [address] [place] [address] Care Team Providers Care Senior Mechanical Development Engineer Name Role Phone Wolfgang Serrano MD Primary Care Provider Unknown, Notinfile Unavailable Unavailable Santino Funk MD Unavailable [phone] Chuy Enriquez MD Unavailable [phone] Luis Felipe Cedillo MD Unavailable [phone] Marlene Thornton MD Unavailable Reason for Visit * Auth/Cert (Routine) Specialty Diagnoses / Procedures Referred By Contac t Referred To Contact Referral ID Status Reason Start Date Expiration Date Visits Re quested Visits Authorized [id number] 1 60 Encounter Details Date Type Department Care Team (Late st Contact Info) Description 01/25/2024 11:00 AM CDT Home Care Visit [facility] [address] [address] [address] [place] [address] Bing Walker, COIN ROLLING MACHINE OPERATOR PT HOME VISIT Social History [...] often do you attend chur ch or mormonism services? More than 4 times per year [...] Recorded Patient Health Questionnaire-2 Score 0 01/06/2024 [facility] [place] of Occupat ional Health - Occupational Stress [...] file Legal Sex Male 3:25 PM VP SALES Gender Identity Not on file Sexual Orientation [...] Contact Info) Description 10/23/2024 10:00 AM VP SALES Hospital Encounter [facility] Operating Room [address] [place] [address] [place] [address] [address] 10/23/2024 10:00 AM VP SALES - 10/23/2024 1:00 PM VP SALES Surgery [facility] Operating Room [address] [place] [address] [place] [address] [address] ARTHROPLASTY TOTAL KNEE LEFT Scheduled Procedures Name Priority Associated Diagnoses Date/Ti me ARTHROPLASTY TOTAL KNEE left knee osteoarthritis 10/23/2024 10:00 AM VP SALES ESOPHAGOGASTRODUODENOSCOPY Dysphagia, unspecified type documented as of [...] home health visit Disciplines: SN, PT, OT, ATTENDING RADIOLOGIST, RESPIRATORY CARE TECHNICIAN, Skilled Disciplines Monitor patient's vital signs [...] during episode of care Description: Home senior tax specialist to measure vital signs during every [...] control documented in this encounter Care Teams Senior Mechanical Development Engineer Relationship Specialty Start Date End Date Wolfgang Serrano MD PCP - General Family Medicine 05/05/23 08/02/24 Unknown, Notinfile 03/12/22 [place] [address] [facility] [address] [place] [address] 03/12/22 Chuy Enriquez MD [address] [place] [address] Consulting Physician Pulmonary Disease 10/13/23 Luis Felipe Cedillo MD [address] [place] [address] Consulting Physician Gastroenterology 10/13/23 Marlene Thornton MD [address], [place] [address] Surgeon Vascular Surgery 11/10/23 documented as of this encounter
--- OUTSIDE RECORDS SUMMARY | 2024-10-11 03:00 | XMS_ITS | Encounter Summary ---
Author Organization [facility] Healthcare Address [address] [place] [address] Care Team Providers Care Cable Mock Up Assembler Name Role Phone Wolfgang Serrano MD Primary Care Provider Unknown, Notinfile Unavailable Unavailable Santino Funk MD Unavailable [phone] Chuy Enriquez MD Unavailable Luis Felipe Cedillo MD Unavailable Marlene Thornton MD Unavailable [phone] Reason for Visit * Auth/Cert (Routine) Specialty Diagnoses / Procedures Referred By Contac t Referred To Contact Referral ID Status Reason Start Date Expiration Date Visits Re quested Visits Authorized [id number] 1 60 Encounter Details Date Type Department Care Team (Late st Contact Info) Description 02/10/2024 12:00 PM CDT Home Care Visit [facility] [address] [address] [address] [place] [address] Bing Walker, PACKAGE DRIER PT HOME VISIT Social History Tobacco Use [...] doctor or pharmacy Sometimes 01/09/2024 [facility] Utilities Answer Date [...] often do you attend chur ch or gnosticist services? More than 4 times per year [...] Recorded Patient Health Questionnaire-2 Score 0 01/06/2024 [facility] [place] of Occupat ional Health - Occupational Stress [...] on file Legal Sex Male 3:25 PM CNC MECHANIC Gender Identity Not on file Sexual [...] (Latest Contact Info) Description 10/23/2024 10:00 AM CNC MECHANIC Hospital Encounter [facility] Operating Room [address] [place] [address] [place] [address] [address] 10/23/2024 10:00 AM CNC MECHANIC - 10/23/2024 1:00 PM CNC MECHANIC Surgery [facility] Operating Room [address] [place] [address] [place] [address] [address] ARTHROPLASTY TOTAL KNEE LEFT Scheduled Procedures Name Priority Associated Diagnoses Date/Ti me ARTHROPLASTY TOTAL KNEE left knee osteoarthritis 10/23/2024 10:00 AM CNC MECHANIC ESOPHAGOGASTRODUODENOSCOPY Dysphagia, unspecified type documented as [...] home health visit Disciplines: SN, PT, OT, SNORKELLING INSTRUCTOR, INFORMATICA MDM ARCHITECT, Skilled Disciplines Monitor patient's vital signs every [...] visit during episode of care Description: Home acetylene cylinder packing mixer to measure vital signs during every [...] day documented in this encounter Care Teams Cable Mock Up Assembler Relationship Specialty Start Date End Date Wolfgang Serrano MD PCP - General Family Medicine 05/05/23 08/02/24 Unknown, Notinfile 03/12/22 [place] [address] [facility] [address] [place] [address] 03/12/22 Chuy Enriquez MD [address] [place] [address] Consulting Physician Pulmonary Disease 10/13/23 Luis Felipe Cedillo MD [address] [address] Consulting Physician Gastroenterology 10/13/23 Marlene Thornton MD [address] [address] Surgeon Vascular Surgery 11/10/23 documented as of this encounter
--- OUTSIDE RECORDS SUMMARY | 2024-10-11 03:00 | XMS_ITS | Encounter Summary ---
Author Organization [facility] Address [address] [place] [address] Phone Care Team Providers Care Maternal Fetal Physician Name Role Phone Wolfgang Serrano MD Primary Care Provider Unknown, Notinfile Unavailable Unavailable Santino Fnuk MD Unavailable Chuy Enriquez MD Unavailable Luis Felipe eCdillo MD Unavailable [phone] Marlene Thornton MD Unavailable Encounter Details Date Type Department Care Team (Late st Contact Info) Description 02/15/2024 12:45 PM CDT Office Visit [facility] Dermatology [address] [facility] [address] [place] [address] Hesham Lamb PA [address] [facility] [address] [place] [address] Nummular dermatitis (Primary Dx); Solar purpura [...] from doctor or pharmacy Sometimes 01/09/2024 [facility] Utilities Answer Date Recorded In the past 12 months has th e [employer], gas, oil, or water [employer] threatened to shut off services in your [...] Questionnaire-2 Score 0 01/06/2024 [facility] [place] of Occupat ional Health - Occupational Stress [...] on file Legal Sex Male 3:25 PM 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 OFFICER Gender Identity Not on file Sexual [...] delayed healing, subsequent encounter Clotting disorder (CMS/HCC) ([facility]) Complex tear of medial meniscus of left knee as current injury Complex tear of medial meniscus of right knee as current injury Cramps of lower extremity Diverticulitis of colon Easy bruisability Fatigue Frequent urination Gastroesophageal reflux disease GERD Hypothyroidism Incontinence of urine Muscle weakness Osteoarthritis Osteoarthritis Peptic ulcer Peptic ulcer disease Seizures ([facility]) 1997 last seizure in 1997 SOB (shortness of breath) on exertion Subchondral insufficiency fracture of condyle of left femur (CMS/HCC) ([facility]) Vertigo Vision changes Visual disturbance [...] (Latest Contact Info) Description 10/23/2024 10:00 AM 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 OFFICER Hospital Encounter [facility] Operating Room [address] [place] [address] [place] [address] [facility] [address] [place] [address] 10/23/2024 10:00 AM 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 OFFICER - 10/23/2024 1:00 PM [facility] Surgery [facility] Operating Room [address] [place] [address] [place] [address] [facility] [address] [place], [place] [id number] ARTHROPLASTY TOTAL KNEE LEFT Scheduled Procedures Name Priority Associated Diagnoses Date/Ti me ARTHROPLASTY TOTAL KNEE left knee osteoarthritis 10/23/2024 10:00 AM 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 OFFICER ESOPHAGOGASTRODUODENOSCOPY Dysphagia, unspecified type documented as of this encounter Visit Diagnoses Diagnosis Nummular dermatitis- Primary Contact dermatitis and other eczema, due to unspecified cause Solar purpura (CMS/HCC) ([facility]) documented in this encounter Care Teams Maternal Fetal Physician Relationship Specialty Start Date End Date Wolfgang Serrano MD PCP - General Family Medicine 05/05/23 08/02/24 Unknown, Notinfile 03/12/22 [place] [address] [facility] [address] [place] [address] 03/12/22 Chuy Enriquez MD [address] [facility] [address] [place] [address] Consulting Physician Pulmonary Disease 10/13/23 Luis Felipe Cedillo MD [address] [facility] [address] [place] [address] Consulting Physician Gastroenterology 10/13/23 Marlene Thornton MD [address] [facility] [address] [place] [address] Surgeon Vascular Surgery 11/10/23 documented as of this encounter
--- OUTSIDE RECORDS SUMMARY | 2024-10-11 03:00 | XMS_ITS | Encounter Summary ---
Author Organization [facility] Healthcare Address [address] [place] [address] Care Team Providers Care Chemist Food Name Role Phone Wolfgang Serrano MD Primary Care Provider [phone] Unknown, Notinfile Unavailable Unavailable Santino Funk MD Unavailable Chuy Enriquez MD Unavailable Luis Felipe Cedillo MD Unavailable [phone] Marlene Thornton MD Unavailable Encounter Details Date Type Department Care Team (Late st Contact Info) Description 01/21/2024 Telephone 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 Gender Identity Not on file [...] Contact Info) Description 10/23/2024 10:00 AM ROCK CRUSHING MACHINE OPERATOR Hospital Encounter [facility] Operating Room [address] [place] [address] [place] [id number] [place] [address] 10/23/2024 10:00 AM ROCK CRUSHING MACHINE OPERATOR - 10/23/2024 1:00 PM ROCK CRUSHING MACHINE OPERATOR Surgery [facility] Operating Room [address] [place] [id number] [place] [address] [facility] [address] [place] [address] ARTHROPLASTY TOTAL KNEE LEFT Scheduled Procedures Name Priority Associated Diagnoses Date/Ti me ARTHROPLASTY TOTAL KNEE left knee osteoarthritis 10/23/2024 10:00 AM ROCK CRUSHING MACHINE OPERATOR ESOPHAGOGASTRODUODENOSCOPY Dysphagia, unspecified type documented as of this encounter Visit Diagnoses Not on filedocumented in this encounter Care Teams Chemist Food Relationship Specialty Start Date End Date Wolfgang Serrano MD PCP - General Family Medicine 05/05/23 08/02/24 Unknown, Notinfile 03/12/22 [place] [address] [facility] [address] [place] [address] 03/12/22 Chuy Enriquez MD [address] [place] [address] Consulting Physician Pulmonary Disease 10/13/23 Luis Felpie Cedillo MD [address] [place] [address] Consulting Physician Gastroenterology 10/13/23 Marlene Thornton MD [address] [place] [address] Surgeon Vascular Surgery 11/10/23 documented as of this encounter
--- OUTSIDE RECORDS SUMMARY | 2024-10-11 03:00 | XMS_ITS | Encounter Summary ---
Author Organization [facility] Healthcare Address [address] [place] [address] Care Team Providers Care Works Manager Name Role Phone Wolfgang Serrano MD Primary Care Provider Unknown, Notinfile Unavailable Unavailable Santino Funk MD Unavailable [phone] Chuy Enriquez MD Unavailable [phone] Luis Felipe Cedillo MD Unavailable [phone] Marlene Thornton MD Unavailable Reason for Visit * Reason Comments Stroke * Auth/Cert (Routine) Specialty Diagnoses / Procedures Referred By Contac t Referred To Contact Referral ID Status Reason Start Date Expiration Date Visits Re quested Visits Authorized [id number] 1 60 Encounter Details Date Type Department Care Team (Late st Contact Info) Description 02/24/2024 10:30 AM CDT Home Care Visit [facility] [address] [address] [address] [place] [address] Jacque Tolliver, PT PT HOME VISIT Social [...] the past 12 months has th e [employer], gas, oil, or water company threatened to [...] Patient Health Questionnaire-2 Score 0 01/06/2024 [facility] [place] of Occupat ional Health - Occupational Stress [...] on file Legal Sex Male 3:25 PM TELE RN Gender Identity Not on file Sexual Orientation [...] (Latest Contact Info) Description 10/23/2024 10:00 AM TELE RN Hospital Encounter [facility] Operating Room [address] [place] [address] [place] [address] [id number] 10/23/2024 10:00 AM TELE RN - 10/23/2024 1:00 PM TELE RN Surgery [facility] Operating Room [address] [place] [address] [place] [address] [address] ARTHROPLASTY TOTAL KNEE LEFT Scheduled Procedures Name Priority Associated Diagnoses Date/Ti me ARTHROPLASTY TOTAL KNEE left knee osteoarthritis 10/23/2024 10:00 AM TELE RN ESOPHAGOGASTRODUODENOSCOPY Dysphagia, unspecified type documented as of [...] home health visit Disciplines: SN, PT, OT, LOAN REVIEW OFFICER, INSURANCE LOSS CONTROL SURVEYOR, Skilled Disciplines Monitor patient's vital signs every [...] visit during episode of care Description: Home group tester to measure vital signs during every [...] Completed documented in this encounter Care Teams Works Manager Relationship Specialty Start Date End Date Wolfgang Serrano MD PCP - General Family Medicine 05/05/23 08/02/24 Unknown, Notinfile 03/12/22 [place] [address] [address] 03/12/22 Chuy Enriquez MD [address] [facility] [address] [place] [address] Consulting Physician Pulmonary Disease 10/13/23 Luis Felipe Cedillo MD [address] [facility] [address], [place] [id number] Consulting Physician Gastroenterology 10/13/23 Marlene Thornton MD [address] [facility] [address], [place] [address] Surgeon Vascular Surgery 11/10/23 documented as of this encounter
--- OUTSIDE RECORDS SUMMARY | 2024-10-11 03:00 | XMS_ITS | Encounter Summary ---
Author Organization [facility] Healthcare Address [address] [place] [address] Care Team Providers Care Shop Coordinator Name Role Phone Wolfgang Serrano MD Primary Care Provider [phone] Unknown, Notinfile Unavailable Unavailable Santino Funk MD Unavailable [phone] Chuy Enriquez MD Unavailable Luis Felipe Cedillo MD Unavailable Marlene Thornton MD Unavailable [phone] Reason for Visit * Auth/Cert (Routine) Specialty Diagnoses / Procedures Referred By Contac t Referred To Contact Referral ID Status Reason Start Date Expiration Date Visits Re quested Visits Authorized [id number] 1 60 Encounter Details Date Type Department Care Team (Late st Contact Info) Description 01/20/2024 12:30 PM CDT Home Care Visit [facility] [address] [address] [address] [place] [address] Bing Walker, SAW RUNNER PT HOME VISIT Social History Tobacco Use [...] materials from doctor or pharmacy Sometimes 01/09/2024 [facility] Utilities Answer Date Recorded In the [...] often do you attend chur ch or baptism services? More than 4 times per year [...] Recorded Patient Health Questionnaire-2 Score 0 01/06/2024 [facility] [place] of Occupat ional Health - Occupational Stress [...] on file Legal Sex Male 3:25 PM CORRECTIONS CASEWORKER Gender Identity Not on file Sexual Orientation [...] (Latest Contact Info) Description 10/23/2024 10:00 AM CORRECTIONS CASEWORKER Hospital Encounter [facility] Operating Room [address] [place] [address] [place] [address] [address] 10/23/2024 10:00 AM CORRECTIONS CASEWORKER - 10/23/2024 1:00 PM CORRECTIONS CASEWORKER Surgery [facility] Operating Room [address] [place] [address] [place] [address] [address] ARTHROPLASTY TOTAL KNEE LEFT Scheduled Procedures Name Priority Associated Diagnoses Date/Ti me ARTHROPLASTY TOTAL KNEE left knee osteoarthritis 10/23/2024 10:00 AM CORRECTIONS CASEWORKER ESOPHAGOGASTRODUODENOSCOPY Dysphagia, unspecified type documented as of [...] health visit Disciplines: SN, PT, OT, SENIOR MERCHANDISER, APPLIANCE PAINTER AND REFINISHER, Skilled Disciplines Monitor patient's vital signs every [...] during episode of care Description: Home medical program specialist to measure vital signs during every [...] day documented in this encounter Care Teams Shop Coordinator Relationship Specialty Start Date End Date Wolfgang Serrano MD PCP - General Family Medicine 05/05/23 08/02/24 Unknown, Notinfile 03/12/22 [place] [address] [address] [place] [address] 03/12/22 Chuy Enriquez MD [address] [place] [address] Consulting Physician Pulmonary Disease 10/13/23 Luis Felipe Cedillo MD [address], [place] [id number] Consulting Physician Gastroenterology 10/13/23 Marlene Thornton MD [address], [place] [address] Surgeon Vascular Surgery 11/10/23 documented as of this encounter
--- OUTSIDE RECORDS SUMMARY | 2024-10-11 03:00 | XMS_ITS | Encounter Summary ---
Author Organization [facility] Healthcare Address [address] [place] [address] Care Team Providers Care Pizza Delivery Driver Name Role Phone Wolfgang Serrano MD Primary Care Provider [phone] Unknown, Notinfile Unavailable Unavailable Santino Funk MD Unavailable Chuy Enriquez MD Unavailable Luis Felipe Cedillo MD Unavailable Marlene Thornton MD Unavailable Reason for Visit * Auth/Cert (Routine) Specialty Diagnoses / Procedures Referred By Contac t Referred To Contact Referral ID Status Reason Start Date Expiration Date Visits Re quested Visits Authorized [id number] 1 60 Encounter Details Date Type Department Care Team (Late st Contact Info) Description 02/23/2024 9:30 AM CDT Home Care Visit [facility] [address] [address] [address] [place] [address] Anjelica Winter, MASTER CERTIFIED RV TECHNICIAN MASTER CERTIFIED RV TECHNICIAN HOME VISIT Social History Tobacco Use Types [...] 01/09/2024 [facility] Utilities Answer Date Recorded In the past 12 months has e [employer], gas, oil, or water company threatened to [...] any clubs o r organizations such as yazdanism groups, unions, fraternal or athletic groups, or [...] 0 01/06/2024 [facility] [place] of Occupat ional Health - Occupational Stress [...] on file Legal Sex Male 3:25 PM 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 PEEL OVEN 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 Gender Identity Not on file Sexual [...] (Latest Contact Info) Description 10/23/2024 10:00 AM ROTARY PEEL OVEN TENDER Hospital Encounter [facility] Operating Room [address] [place] [address] [place] [address] [address] 10/23/2024 10:00 AM ROTARY PEEL OVEN TENDER - 10/23/2024 1:00 PM ROTARY PEEL OVEN TENDER Surgery [facility] Operating Room [address] [place] [address] [place] [address] [address] ARTHROPLASTY TOTAL KNEE LEFT Scheduled Procedures Name Priority Associated Diagnoses Date/Ti me ARTHROPLASTY TOTAL KNEE left knee osteoarthritis 10/23/2024 10:00 AM ROTARY PEEL OVEN TENDER ESOPHAGOGASTRODUODENOSCOPY Dysphagia, unspecified type documented as of this encounter Visit Diagnoses Not on filedocumented in this encounter Home Health Visit - Care Plan Visit Details Visit Type -MASTER CERTIFIED RV TECHNICIAN Home Visit Discipline -Speech Language Pathology Problems Problem Description Start Date Status Goals Interventions Homebound Status Disciplines: Skilled Disciplines Patient's homebound status 01/09/2024 Active 1 goal linked to scheduled/docume nted intervention 1 goal intervention scheduled/documen ana in this visit Monitor patient's vital signs every home health visit Disciplines: SN, PT, OT, MASTER CERTIFIED RV TECHNICIAN, NURSING HOME MANAGER, Skilled Disciplines Monitor patient's vital signs [...] goal interventions scheduled/documen ana in this visit MASTER CERTIFIED RV TECHNICIAN oral motor problems Disciplines: Speech Language [...] visit during episode of care Description: Home car pilot to measure vital signs during every home [...] (HEP) Description: Instruct patient/caregiver and perform HEP. Problem:MASTER CERTIFIED RV TECHNICIAN oral motor problems Completed Review and continued development of HEP for intelligibility with patient and patient caregiver demonstrating comprehenison. MASTER CERTIFIED RV TECHNICIAN speech articulation disorder treatments Description: Therapeutic exercise Problem:MASTER CERTIFIED RV TECHNICIAN oral motor problems Completed Review of intelligibility strategies including overarticulation (exaggerate your mouth movements), and spacing and phrasing (space out your words) with patient demonstrating comprehension. Targeted use of intelligibility strategies at the sentence, short paragraph level with setup assistance required at 90% intelligibility. documented in this encounter Care Teams Pizza Delivery Driver Relationship Specialty Start Date End Date Wolfgang Serrano MD PCP - General Family Medicine 05/05/23 08/02/24 Unknown, Notinfile 03/12/22 [place] [address] [facility] [address] [place] [address] 03/12/22 Chuy Enriquez MD [address] [facility] [address] [place] [address] Consulting Physician Pulmonary Disease 10/13/23 Luis Felipe Cedillo MD [address] [facility] [address] [place] [address] Consulting Physician Gastroenterology 10/13/23 Marlene Thornton MD [address] [facility] [address], [place] [address] Surgeon Vascular Surgery 11/10/23 documented as of this encounter
--- OUTSIDE RECORDS SUMMARY | 2024-10-11 03:00 | XMS_ITS | Encounter Summary ---
Author Organization [facility] Healthcare Address [address] [place] [address] Care Team Providers Care Front Desk Officer Name Role Phone Wolfgang Serrano MD Primary Care Provider Unknown, Notinfile Unavailable Unavailable Santino Funk MD Unavailable [phone] Chuy Enriquez MD Unavailable Luis Felipe Cedillo MD Unavailable [phone] Marlene Thornton MD Unavailable [phone] Reason for Visit * Auth/Cert (Routine) Specialty Diagnoses / Procedures Referred By Contac t Referred To Contact Referral ID Status Reason Start Date Expiration Date Visits Re quested Visits Authorized [id number] 1 60 Encounter Details Date Type Department Care Team (Late st Contact Info) Description 02/04/2024 9:00 AM CDT Home Care Visit [facility] [address] [address] [address] [place] [address] Kavya Basurto, OT OT REASSESSMENT [...] doctor or pharmacy Sometimes 01/09/2024 [facility] Utilities Answer Date Recorded In the past 12 months has e [employer], gas, oil, or water company threatened to [...] Recorded Patient Health Questionnaire-2 Score 0 01/06/2024 [facility] [place] of Occupat ional Health - Occupational Stress [...] on file Legal Sex Male 3:25 PM HAT PRESSER Gender Identity Not on file Sexual [...] was referred to HHOT s/p admission to [facility] from 12/07/2023 - 12/15/2023 (8 days) [...] [facility] Hospital Encounter [facility] Operating Room [address] [place] [address] [place] [id number] [place] [address] 10/23/2024 10:00 AM HAT PRESSER - 10/23/2024 1:00 PM HAT PRESSER Surgery [facility] Operating Room [address] [place] [address] [place] [address] [facility] [address] [place] [address] ARTHROPLASTY TOTAL KNEE LEFT Scheduled Procedures Name Priority Associated Diagnoses Date/Ti me ARTHROPLASTY TOTAL KNEE left knee osteoarthritis 10/23/2024 10:00 AM HAT PRESSER ESOPHAGOGASTRODUODENOSCOPY Dysphagia, unspecified type documented as [...] home health visit Disciplines: SN, PT, OT, DISPATCH SPECIALIST, GUNSMITH APPRENTICE, Skilled Disciplines Monitor patient's vital signs every [...] visit during episode of care Description: Home double ending machine operator to measure vital signs during [...] information documented in this encounter Care Teams Front Desk Officer Relationship Specialty Start Date End Date Wolfgang Serrano MD PCP - General Family Medicine 05/05/23 08/02/24 Unknown, Notinfile 03/12/22 [place] [address] [facility] [address] [place] [address] 03/12/22 Chuy Enriquez MD [address] [place] [address] Consulting Physician Pulmonary Disease 10/13/23 Luis Felipe Cedillo MD [address] [place] [address] Consulting Physician Gastroenterology 10/13/23 Marlene Thornton MD [address] [address] Surgeon Vascular Surgery 11/10/23 documented as of this encounter
--- OUTSIDE RECORDS SUMMARY | 2024-10-11 03:00 | XMS_ITS | Encounter Summary ---
Author Organization [facility] Healthcare Address [address] [place] [address] Care Team Providers Care Lockstitch Zipper Setter Name Role Phone Wolfgang Serrano MD Primary Care Provider [phone] Unknown, Notinfile Unavailable Unavailable Santino Funk MD Unavailable [phone] Chuy Enriquez MD Unavailable Luis Felipe Cedillo MD Unavailable Marlene Thornton MD Unavailable Reason for Visit * Auth/Cert (Routine) Specialty Diagnoses / Procedures Referred By Contac t Referred To Contact Referral ID Status Reason Start Date Expiration Date Visits Re quested Visits Authorized [id number] 1 60 Encounter Details Date Type Department Care Team (Late st Contact Info) Description 02/09/2024 9:00 AM CDT Home Care Visit [facility] [address] [address] [address] [place] [address] Sarah Paulino COTA OT HOME [...] doctor or pharmacy Sometimes 01/09/2024 [facility] Utilities Answer Date Recorded In the [...] any clubs o r organizations such as hindu groups, unions, fraternal or athletic groups, or [...] Score 0 01/06/2024 [facility] [place] of Occupat ional Health - Occupational Stress [...] on file Legal Sex Male 3:25 PM CLOUD ARCHITECT Gender Identity Not on file Sexual [...] (Latest Contact Info) Description 10/23/2024 10:00 AM CLOUD ARCHITECT Hospital Encounter [facility] Operating Room [address] [place] [address] [place] [address] [address] 10/23/2024 10:00 AM CLOUD ARCHITECT - 10/23/2024 1:00 PM CLOUD ARCHITECT Surgery [facility] Operating Room [address] [place] [address] [place] [address] [address] ARTHROPLASTY TOTAL KNEE LEFT Scheduled Procedures Name Priority Associated Diagnoses Date/Ti me ARTHROPLASTY TOTAL KNEE left knee osteoarthritis 10/23/2024 10:00 AM CLOUD ARCHITECT ESOPHAGOGASTRODUODENOSCOPY Dysphagia, unspecified type documented as [...] home health visit Disciplines: SN, PT, OT, SIZE MARKER, FUNCTIONAL ANALYST, Skilled Disciplines Monitor patient's vital signs every [...] visit during episode of care Description: Home light equipment operator to measure vital signs during every [...] difficulty. documented in this encounter Care Teams Lockstitch Zipper Setter Relationship Specialty Start Date End Date Wolfgang Serrano MD PCP - General Family Medicine 05/05/23 08/02/24 Unknown, Notinfile 03/12/22 [place] [address] [facility] [address] [place] [address] 03/12/22 Chuy Enriquez MD [address] [place], [place] [id number] Consulting Physician Pulmonary Disease 10/13/23 Luis Felipe Cedillo MD [address] [facility] [place] [id number] Consulting Physician Gastroenterology 10/13/23 Marlene Thornton MD [address] [facility] [address] [address] Surgeon Vascular Surgery 11/10/23 documented as of this encounter
--- OUTSIDE RECORDS SUMMARY | 2024-10-11 03:00 | XMS_ITS | Encounter Summary ---
Author Organization [facility] Healthcare Address [address] [place] [address] Care Team Providers Care Chemical Engineering Teacher Name Role Phone Wolfgang Serrano MD Primary Care Provider Unknown, Notinfile Unavailable Unavailable Santino Funk MD Unavailable Chuy Enriquez MD Unavailable Luis Felipe Cedillo MD Unavailable Marlene Thornton MD Unavailable [phone] Reason for Visit * Auth/Cert (Routine) Specialty Diagnoses / Procedures Referred By Contac t Referred To Contact Referral ID Status Reason Start Date Expiration Date Visits Re quested Visits Authorized [id number] 1 60 Encounter Details Date Type Department Care Team (Late st Contact Info) Description 02/09/2024 10:00 AM CDT Home Care Visit [facility] [address] [place] [address] Anjelica Winter, CHANNEL DIRECTOR CHANNEL DIRECTOR REASSESSMENT Social History Tobacco Use Types Packs/Day [...] from doctor or pharmacy Sometimes 01/09/2024 [facility] Utilities Answer Date Recorded In the past 12 months has e [employer], gas, oil, or water company threatened to [...] any clubs o r organizations such as congregational groups, unions, fraternal or athletic groups, or [...] Questionnaire-2 Score 0 01/06/2024 [facility] [place] of Occupat ional Health - Occupational Stress [...] on file Legal Sex Male 3:25 PM ROBOTIC MAINTENANCE TECHNICIAN Gender Identity Not on file [...] (Latest Contact Info) Description 10/23/2024 10:00 AM ROBOTIC MAINTENANCE TECHNICIAN Hospital Encounter [facility] Operating Room [address] [place] [address] [place] [address] [address] 10/23/2024 10:00 AM ROBOTIC MAINTENANCE TECHNICIAN - 10/23/2024 1:00 PM ROBOTIC MAINTENANCE TECHNICIAN Surgery [facility] Operating Room [address] [place] [address] [place] [address] [address] ARTHROPLASTY TOTAL KNEE LEFT Scheduled Procedures Name Priority Associated Diagnoses Date/Ti me ARTHROPLASTY TOTAL KNEE left knee osteoarthritis 10/23/2024 10:00 AM ROBOTIC MAINTENANCE TECHNICIAN ESOPHAGOGASTRODUODENOSCOPY Dysphagia, unspecified type documented as of this encounter Visit Diagnoses Not on filedocumented in this encounter Home Health Visit - Care Plan Visit Details Visit Type -CHANNEL DIRECTOR Reassessment Discipline -Speech Language Pathology Problems Problem Description Start Date Status Goals Interventions Homebound Status Disciplines: Skilled Disciplines Patient's homebound status 01/09/2024 Active 1 goal linked to scheduled/documen ana intervention 1 goal intervention scheduled/docume nted in this visit Monitor patient's vital signs every home health visit Disciplines: SN, PT, OT, CHANNEL DIRECTOR, WEB APPLICATIONS ADMINISTRATOR, Skilled Disciplines Monitor patient's vital signs every [...] goal interventions scheduled/docume nted in this visit CHANNEL DIRECTOR Impaired Swallowing Disciplines: Speech Language Pathology Impaired [...] visit during episode of care Description: Home ship washer to measure vital signs during every home [...] swallow precautions at independent level by 02/12/2024. CHANNEL DIRECTOR Impaired Swallowing Completed Yes Improvement in swallowing ability Description: Patient will tolerate a least restrictive diet without clinical signs or symptoms of aspiration by 02/12/2024. Patient is making functional progress towards goal, extend goal meet date to 03/08/2024. CHANNEL DIRECTOR Impaired Swallowing Progressing No Cognitive Status - [...] (HEP) Description: Instruct patient/caregiver and perform HEP. Problem:CHANNEL DIRECTOR Impaired Swallowing Completed Review and continued development of HEP for oral motor exercises with patient and patient caregiver demonstrating comprehension. Instruct appropriate strategies to prevent choking/aspiration Description: Instruct patient/caregiver on appropriate strategies to prevent choking / aspiration Problem:CHANNEL DIRECTOR Impaired Swallowing Completed Review of safe swallow strategies including decreased rate, decreased bolus size, alternating liquids and solids, sitting up straight during and 30 - 45 minutes following oral intake, and adding extra moisture to foods when appropriate (extra sauce, gravy, condiments, syrup, etc) with patient demonstrating comprehension. Instruct on swallowing exercises Description: Teach swallow exercises Problem:CHANNEL DIRECTOR Impaired Swallowing Completed Review of oral motor exercises including lingual documented in this encounter Care Teams Chemical Engineering Teacher Relationship Specialty Start Date End Date Wolfgang Serrano MD PCP - General Family Medicine 05/05/23 08/02/24 Unknown, Notinfile 03/12/22 [place] [address] [facility] [address] [place] [address] 03/12/22 Chuy Enriquez MD [address] [facility] [address] [place] [address] Consulting Physician Pulmonary Disease 10/13/23 Luis Felipe Cedillo MD [address] [facility] [facility] [address] [address] Consulting Physician Gastroenterology 10/13/23 Marlene Thornton MD [address] [facility] [facility] [address] [address] Surgeon Vascular Surgery 11/10/23 documented as of this encounter
--- OUTSIDE RECORDS SUMMARY | 2024-10-11 03:00 | XMS_ITS | Encounter Summary ---
Author Organization [facility] Healthcare Address [address] [place] [address] Care Team Providers Care Copy And Print Associate Name Role Phone Wolfgang Serrano MD Primary Care Provider [phone] Unknown, Notinfile Unavailable Unavailable Santino Funk MD Unavailable [phone] Chuy Enriquez MD Unavailable [phone] Luis Felipe Cedillo MD Unavailable [phone] Marlene Thornton MD Unavailable [phone] Reason for Visit * Auth/Cert (Routine) Specialty Diagnoses / Procedures Referred By Contac t Referred To Contact Referral ID Status Reason Start Date Expiration Date Visits Re quested Visits Authorized [id number] 1 60 Encounter Details Date Type Department Care Team (Late st Contact Info) Description 02/16/2024 1:45 PM CDT Home Care Visit [facility] [address] [place] [address] Anjelica Winter, FIELD ARTILLERY CANNONEER FIELD ARTILLERY CANNONEER HOME VISIT Social History Tobacco Use Types [...] materials from doctor or pharmacy Sometimes 01/09/2024 [facility] Utilities Answer Date Recorded In the past 12 months has e [employer], gas, oil, or water company threatened to [...] Questionnaire-2 Score 0 01/06/2024 [facility] [place] of Occupat ional Health - Occupational Stress [...] on file Legal Sex Male 3:25 PM WORKERS COMPENSATION CLAIMS EXAMINER Gender Identity Not on file Sexual [...] (Latest Contact Info) Description 10/23/2024 10:00 AM WORKERS COMPENSATION CLAIMS EXAMINER Hospital Encounter [facility] Operating Room [address] [place] [address] [place] [address] [address] 10/23/2024 10:00 AM WORKERS COMPENSATION CLAIMS EXAMINER - 10/23/2024 1:00 PM WORKERS COMPENSATION CLAIMS EXAMINER Surgery [facility] Operating Room [address] [place] [address] [place] [address] [address] ARTHROPLASTY TOTAL KNEE LEFT Scheduled Procedures Name Priority Associated Diagnoses Date/Ti me ARTHROPLASTY TOTAL KNEE left knee osteoarthritis 10/23/2024 10:00 AM WORKERS COMPENSATION CLAIMS EXAMINER ESOPHAGOGASTRODUODENOSCOPY Dysphagia, unspecified type documented as of this encounter Visit Diagnoses Not on filedocumented in this encounter Home Health Visit - Care Plan Visit Details Visit Type -FIELD ARTILLERY CANNONEER Home Visit Discipline -Speech Language Pathology Problems Problem Description Start Date Status Goals Interventions Homebound Status Disciplines: Skilled Disciplines Patient's homebound status 01/09/2024 Active 1 goal linked to scheduled/docume nted intervention 1 goal intervention scheduled/documen ana in this visit Monitor patient's vital signs every home health visit Disciplines: SN, PT, OT, FIELD ARTILLERY CANNONEER, PIPE BENDING MACHINE OPERATOR, Skilled Disciplines Monitor patient's vital [...] goal interventions scheduled/documen ana in this visit FIELD ARTILLERY CANNONEER Impaired Swallowing Disciplines: Speech Language Pathology Impaired swallow with oral phase dysphagia 01/14/2024 Active - 1 problem intervention scheduled/documen ana in this visit FIELD ARTILLERY CANNONEER oral motor problems Disciplines: Speech Language Pathology [...] visit during episode of care Description: Home odd piece checker to measure vital signs during every home [...] (HEP) Description: Instruct patient/caregiver and perform HEP. Problem:FIELD ARTILLERY CANNONEER Impaired Swallowing Completed FIELD ARTILLERY CANNONEER speech articulation disorder treatments Description: Therapeutic exercise Problem:FIELD ARTILLERY CANNONEER oral motor problems Completed Review of intelligibility [...] required. documented in this encounter Care Teams Copy And Print Associate Relationship Specialty Start Date End Date Wolfgang Serrano MD PCP - General Family Medicine 05/05/23 08/02/24 Unknown, Notinfile 03/12/22 [place] [address] [address] 03/12/22 Chuy Enriquez MD [address] [facility] [address] [place] [address] Consulting Physician Pulmonary Disease 10/13/23 Luis Felipe Cedillo MD [address] [facility] [address], [place] [address] Consulting Physician Gastroenterology 10/13/23 Marlene Thornton MD [address] [facility] [address] [address] Surgeon Vascular Surgery 11/10/23 documented as of this encounter
--- OUTSIDE RECORDS SUMMARY | 2024-10-11 03:00 | XMS_ITS | Encounter Summary ---
Author Organization [facility] Healthcare Address [address] [place] [address] Care Team Providers Care Recording Artist Name Role Phone Wolfgang Serrano MD Primary Care Provider Unknown, Notinfile Unavailable Unavailable Santino Funk MD Unavailable [phone] Chuy Enriquez MD Unavailable Luis Felipe Cedillo MD Unavailable Marlene Thornton MD Unavailable Reason for Visit * Auth/Cert (Routine) Specialty Diagnoses / Procedures Referred By Contac t Referred To Contact Referral ID Status Reason Start Date Expiration Date Visits Re quested Visits Authorized [id number] 1 60 Encounter Details Date Type Department Care Team (Late st Contact Info) Description 02/16/2024 3:30 PM CDT Home Care Visit [facility] [address] [address] [address] [place] [address] Jacque Tolliver, PT PT REASSESSMENT [...] often do you attend chur ch or mormon services? More than 4 times per year [...] Patient Health Questionnaire-2 Score 0 01/06/2024 [facility] [place] of Occupat ional Health - Occupational [...] file Legal Sex Male 3:25 PM MANAGER APPLE Gender Identity Not on file Sexual Orientation [...] Contact Info) Description 10/23/2024 10:00 AM MANAGER APPLE Hospital Encounter [facility] Operating Room [address] [place] [address] [place] [address] [address] [facility] [address] [place] [address] 10/23/2024 10:00 AM MANAGER APPLE - 10/23/2024 1:00 PM MANAGER APPLE Surgery [facility] Operating Room [address] [place] [address] [place] [address] [address] [facility] [address] [place] [address] ARTHROPLASTY TOTAL KNEE LEFT Scheduled Procedures Name Priority Associated Diagnoses Date/Ti me ARTHROPLASTY TOTAL KNEE left knee osteoarthritis 10/23/2024 10:00 AM MANAGER APPLE ESOPHAGOGASTRODUODENOSCOPY Dysphagia, unspecified type documented as of [...] home health visit Disciplines: SN, PT, OT, [employer] TRANSPORT DRIVER, CUSTOMER OPERATIONS MANAGER, Skilled Disciplines Monitor patient's vital signs [...] scheduled/docume nted intervention 2 goal interventions scheduled/documen aan in this visit DVT Prevention and Management [...] visit during episode of care Description: Home clinic lead to measure vital signs during every home [...] Scheduled documented in this encounter Care Teams Recording Artist Relationship Specialty Start Date End Date Wolfgang Serrano MD PCP - General Family Medicine 05/05/23 08/02/24 Unknown, Notinfile 03/12/22 [place] [address] [facility] [address] [place] [address] 03/12/22 Chuy Enriquez MD [address] [facility] [address] [place] [address] Consulting Physician Pulmonary Disease 10/13/23 Luis Felipe Cedillo MD [address] [place] [address] Consulting Physician Gastroenterology 10/13/23 Marlene Thornton MD [address] [place] [address] Surgeon Vascular Surgery 11/10/23 documented as of this encounter
--- OUTSIDE RECORDS SUMMARY | 2024-10-11 03:00 | XMS_ITS | Encounter Summary ---
Author Organization [facility] Address [address] [place] [address] Phone Care Team Providers Care Cardiopulmonary Physical Therapist Name Role Phone Wolfgang Serrano MD Primary Care Provider Unknown, Notinfile Unavailable Unavailable Santino Funk MD Unavailable Chuy Enriquez MD Unavailable Luis Felipe Cedillo MD Unavailable Marlene Thornton MD Unavailable Encounter Details Date Type Department Care Team (Late st Contact Info) Description 02/04/2024 Orders Only [facility] Gastroenterology [facility] Medical Office Building [address] [place] [address] Yfn oRe MD [address] [place] [address] Social History Tobacco Use Types [...] materials from doctor or pharmacy Sometimes 01/09/2024 [facility] Utilities Answer Date Recorded In the past 12 months has e [employer], [employer], oil, or water [employer] threatened to shut off services in your [...] often do you attend chur ch or hindu services? More than 4 times per year [...] Recorded Patient Health Questionnaire-2 Score 0 01/06/2024 [facility] [place] of Occupat ional Health - Occupational Stress [...] on file Legal Sex Male 3:25 PM FRUIT PACKER Gender Identity Not on file Sexual Orientation Not on file documented as of this encounter Plan of Treatment Upcoming Encounters Date Type Department Care Team (Latest Contact Info) Description 10/23/2024 10:00 AM FRUIT PACKER Hospital Encounter [facility] Operating Room [address] [place] [address] [place] [address] [address] 10/23/2024 10:00 AM FRUIT PACKER - 10/23/2024 1:00 PM FRUIT PACKER Surgery [facility] Operating Room [address] [place] [id number] [place] [address] [facility] [address] [place] [address] ARTHROPLASTY TOTAL KNEE LEFT Scheduled Procedures Name Priority Associated Diagnoses Date/Ti me ARTHROPLASTY TOTAL KNEE left knee osteoarthritis 10/23/2024 10:00 AM FRUIT PACKER ESOPHAGOGASTRODUODENOSCOPY Dysphagia, unspecified type documented as of this encounter Visit Diagnoses Not on filedocumented in this encounter Care Teams Cardiopulmonary Physical Therapist Relationship Specialty Start Date End Date Wolfgang Serrano MD PCP - General Family Medicine 05/05/23 08/02/24 Unknown, Notinfile 03/12/22 [place] [address] [facility] [address] [place] [address] 03/12/22 Chuy Enriquez MD [address] [place] [address] Consulting Physician Pulmonary Disease 10/13/23 Luis Felipe Cedillo MD [address] [place] [address] Consulting Physician Gastroenterology 10/13/23 Marlene Thornton MD [address] [place] [address] Surgeon Vascular Surgery 11/10/23 documented as of this encounter
--- OUTSIDE RECORDS SUMMARY | 2024-10-11 03:00 | XMS_ITS | Encounter Summary ---
Author Organization [facility] Healthcare Address [address] [place] [address] Care Team Providers Care Receiving Clerk Name Role Phone Wolfgang Serrano MD Primary Care Provider [phone] Unknown, Notinfile Unavailable Unavailable Santino Funk MD Unavailable [phone] Chuy Enriquez MD Unavailable Luis Felipe Cedillo MD Unavailable Marlene Thornton MD Unavailable Reason for Visit * Auth/Cert (Routine) Specialty Diagnoses / Procedures Referred By Contac t Referred To Contact Referral ID Status Reason Start Date Expiration Date Visits Re quested Visits Authorized [id number] 1 60 Encounter Details Date Type Department Care Team (Late st Contact Info) Description 02/22/2024 Home Care Visit [facility] [address] [place] [address] Kavya Basurto, OT TELEPHONE ENCOUNTER Social History [...] Recorded Patient Health Questionnaire-2 Score 0 01/06/2024 [facility] [place] of Occupat ional Health - Occupational Stress [...] on file Legal Sex Male 3:25 PM V BELT BUILDER Gender Identity Not on file Sexual Orientation Not on file documented as of this encounter Plan of Treatment Upcoming Encounters Date Type Department Care Team (Latest Contact Info) Description 10/23/2024 10:00 AM V BELT BUILDER Hospital Encounter [facility] Operating Room [address] [place] [address] [place] [address] [address] 10/23/2024 10:00 AM V BELT BUILDER - 10/23/2024 1:00 PM V BELT BUILDER Surgery [facility] Operating Room [address] [place] [address] [place] [address] [address] ARTHROPLASTY TOTAL KNEE LEFT Scheduled Procedures Name Priority Associated Diagnoses Date/Ti me ARTHROPLASTY TOTAL KNEE left knee osteoarthritis 10/23/2024 10:00 AM V BELT BUILDER ESOPHAGOGASTRODUODENOSCOPY Dysphagia, unspecified type documented as of this encounter Visit Diagnoses Not on filedocumented in this encounter Care Teams Receiving Clerk Relationship Specialty Start Date End Date Wolfgang Serrano MD PCP - General Family Medicine 05/05/23 08/02/24 Unknown, Notinfile 03/12/22 [place] [address] [facility] [address] [place] [address] 03/12/22 Chuy Enriquez MD [address] [facility] [address] [place] [address] Consulting Physician Pulmonary Disease 10/13/23 Luis Felipe Cedillo MD [address] [facility] [address] [place] [address] Consulting Physician Gastroenterology 10/13/23 Marlene Thornton MD [address] [facility] [address] [place] [address] Surgeon Vascular Surgery 11/10/23 documented as of this encounter
--- OUTSIDE RECORDS SUMMARY | 2024-10-11 03:01 | XMS_ITS | Encounter Summary ---
Author Organization [facility] Healthcare Address [address] [place] [address] Care Team Providers Care Health Workers Name Role Phone Wolfgang Serrano MD Primary Care Provider Unknown, Notinfile Unavailable Unavailable Santino Funk MD Unavailable [phone] Chuy Enriquez MD Unavailable Luis Felipe Cedillo MD Unavailable Marlene Thornton MD Unavailable [phone] Reason for Visit * Auth/Cert (Routine) Specialty Diagnoses / Procedures Referred By Contac t Referred To Contact Referral ID Status Reason Start Date Expiration Date Visits Re quested Visits Authorized [id number] 1 60 Encounter Details Date Type Department Care Team (Late st Contact Info) Description 01/12/2024 Home Care Visit [facility] [address] [place] [address] João Gardner, WATER TREATMENT PLANT MECHANIC CASE COMMUNICATION Social History Tobacco Use Types [...] doctor or pharmacy Sometimes 01/09/2024 [facility] Utilities Answer Date Recorded In [...] Recorded Patient Health Questionnaire-2 Score 0 01/06/2024 [facility] [place] of Occupat ional Health - Occupational Stress [...] on file Legal Sex Male 3:25 PM RELISH MAKER Gender Identity Not on file Sexual Orientation Not on file documented as of this encounter Plan of Treatment Upcoming Encounters Date Type Department Care Team (Latest Contact Info) Description 10/23/2024 10:00 AM RELISH MAKER Hospital Encounter [facility] Operating Room [address] [place] [address] [place] [address] [address] [address] 10/23/2024 10:00 AM RELISH MAKER - 10/23/2024 1:00 PM RELISH MAKER Surgery [facility] Operating Room [address] [place] [address] [place] [address] [address] ARTHROPLASTY TOTAL KNEE LEFT Scheduled Procedures Name Priority Associated Diagnoses Date/Ti me ARTHROPLASTY TOTAL KNEE left knee osteoarthritis 10/23/2024 10:00 AM RELISH MAKER ESOPHAGOGASTRODUODENOSCOPY Dysphagia, unspecified type documented as of this encounter Visit Diagnoses Not on filedocumented in this encounter Care Teams Health Workers Relationship Specialty Start Date End Date Wolfgang Serrano MD PCP - General Family Medicine 05/05/23 08/02/24 Unknown, Notinfile 03/12/22 [place] [address] [address] [facility] [address] [place] [address] 03/12/22 Chuy Enriquez MD [address] [facility] [address] [place] [address] Consulting Physician Pulmonary Disease 10/13/23 Luis Felipe Cedillo MD [address] [facility] [address] [place] [address] Consulting Physician Gastroenterology 10/13/23 Marlene Thornton MD [address] [facility] [address], [place] [address] Surgeon Vascular Surgery 11/10/23 documented as of this encounter
--- OUTSIDE RECORDS SUMMARY | 2024-10-11 03:01 | XMS_ITS | Encounter Summary ---
Author Organization [facility] Healthcare Address [address] [place] [address] Care Team Providers Care Shape Hand Name Role Phone Wolfgang Serrano MD Primary Care Provider Unknown, Notinfile Unavailable Unavailable Santino Funk MD Unavailable Chuy Enriquez MD Unavailable Luis Felipe Cedillo MD Unavailable Marlene Thornton MD Unavailable [phone] Encounter Details Date Type Department Care Team (Latest Contact Info) Description 01/11/2024 2:07 PM CDT - 01/11/2024 11:59 PM CDT Hospital Encounter [facility] [address] [address] Discharge Disposition: Discharge to home [...] doctor or pharmacy Sometimes 01/09/2024 [facility] Utilities Answer Date [...] Recorded Patient Health Questionnaire-2 Score 0 01/06/2024 [facility] [place] of Occupat ional Health - Occupational Stress [...] on file Legal Sex Male 3:25 PM [employer]OLOG[employer] Gender Identity Not on file Sexual Orientation [...] (Latest Contact Info) Description 10/23/2024 10:00 AM [employer] [employer] Hospital Encounter [facility] Operating Room [address] [place] [address] [place] [address] [address] 10/23/2024 10:00 AM [facility] - 10/23/2024 1:00 PM [facility] Surgery 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 ?? Jossie SANDOVAL IMG XR PROCEDURES Final Resul t documented in this encounter Visit Diagnoses Not on filedocumented in this encounter Care Teams Shape Hand Relationship Specialty Start Date End Date Wolfgang Serrano MD PCP - General Family Medicine 05/05/23 08/02/24 Unknown, Notinfile 03/12/22 [place] [address] [place] [address] 03/12/22 Chuy Enriquez MD [address] [place] [address] Consulting Physician Pulmonary Disease 10/13/23 Luis Felipe Cedillo MD [address], [place] [address] Consulting Physician Gastroenterology 10/13/23 Marlene Thornton MD [address], [place] [address] Surgeon Vascular Surgery 11/10/23 documented as of this encounter
--- OUTSIDE RECORDS SUMMARY | 2024-10-11 03:01 | XMS_ITS | Encounter Summary ---
Author Organization [facility] Healthcare Address [address] [place] [address] Care Team Providers Care Aerophysics Engineer Name Role Phone Wolfgang Serrano MD Primary Care Provider [phone] Unknown, Notinfile Unavailable Unavailable Santino Funk MD Unavailable Chuy Enriquez MD Unavailable Luis Felipe Cedillo MD Unavailable [phone] Marlene Thornton MD Unavailable [phone] Reason for Visit * Auth/Cert (Routine) Specialty Diagnoses / Procedures Referred By Contac t Referred To Contact Referral ID Status Reason Start Date Expiration Date Visits Re quested Visits Authorized [id number] 1 60 Encounter Details Date Type Department Care Team (Late st Contact Info) Description 01/12/2024 Home Care Visit [facility] Health [address] [place] [address] Arlette Briones, MARAH TELEPHONE ENCOUNTER Social History [...] Recorded Patient Health Questionnaire-2 Score 0 01/06/2024 [facility] [place] of Occupat ional Health - Occupational Stress [...] on file Legal 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 Male 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 MILL 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 Gender Identity Not on file Sexual Orientation Not on file documented as of this encounter Plan of Treatment Upcoming Encounters Date Type Department Care Team (Latest Contact Info) Description 10/23/2024 10:00 AM HOB MILL OPERATOR Hospital Encounter [facility] Operating Room [address] [place] [address] [place] [address] [id number] 10/23/2024 10:00 AM HOB MILL OPERATOR - 10/23/2024 1:00 PM HOB MILL OPERATOR Surgery [facility] Operating Room [address] [place] [address] [place] [address] [address] ARTHROPLASTY TOTAL KNEE LEFT Scheduled Procedures Name Priority Associated Diagnoses Date/Ti me ARTHROPLASTY TOTAL KNEE left knee osteoarthritis 10/23/2024 10:00 AM HOB MILL OPERATOR ESOPHAGOGASTRODUODENOSCOPY Dysphagia, unspecified type documented as of this encounter Visit Diagnoses Not on filedocumented in this encounter Care Teams Aerophysics Engineer Relationship Specialty Start Date End Date Wolfgang Serrano MD PCP - General Family Medicine 05/05/23 08/02/24 Unknown, Notinfile 03/12/22 [place] [address] [place] [address] 03/12/22 Chuy Enriquez MD [address] [place] [address] Consulting Physician Pulmonary Disease 10/13/23 Luis Felipe Cedillo MD [address] [place] [address] Consulting Physician Gastroenterology 10/13/23 Marlene Thornton MD [address] [place] [address] Surgeon Vascular Surgery 11/10/23 documented as of this encounter
--- OUTSIDE RECORDS SUMMARY | 2024-10-11 03:01 | XMS_ITS | Encounter Summary ---
Author Organization [facility] Healthcare Address [address] [place] [address] Care Team Providers Care It Communications Manager Name Role Phone Wolfgang Serrano MD Primary Care Provider Unknown, Notinfile Unavailable Unavailable Santino Funk MD Unavailable [phone] Chuy Enriquez MD Unavailable Luis Felipe Cedillo MD Unavailable Marlene Thornton MD Unavailable [phone] Reason for Visit * Reason Comments Follow-up Pain Pain Follow-up Encounter Details Date Type Department Care Team (Latest Contact Info) Description 01/11/2024 2:00 PM CDT Office Visit [facility] at [place] [id number] [address] [place] [address] Jossie Montalvo PA [address] [place] [address] Primary osteoarthritis of both knees (Primary [...] from doctor or pharmacy Sometimes 01/09/2024 [facility] Utilities Answer Date Recorded In the past 12 months has th e [employer], gas, oil, or water [employer] threatened to shut off services in your [...] Recorded Patient Health Questionnaire-2 Score 0 01/06/2024 [facility] [place] of Occupat ional Health - Occupational Stress [...] on file Legal Sex Male 3:25 PM PIPE MACHINE 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 Assessment/Plan Abrahan [...] (Latest Contact Info) Description 10/23/2024 10:00 AM PIPE MACHINE OPERATOR Hospital Encounter [facility] Operating Room [id number] [place] [address] [place] [address] [address] 10/23/2024 10:00 AM PIPE MACHINE OPERATOR - 10/23/2024 1:00 PM PIPE MACHINE OPERATOR Surgery [facility] Operating Room [address] [place] [address] [place] [address] [address] ARTHROPLASTY TOTAL KNEE LEFT Scheduled Procedures Name Priority Associated Diagnoses Date/Ti me ARTHROPLASTY TOTAL KNEE left knee osteoarthritis 10/23/2024 10:00 AM PIPE MACHINE OPERATOR ESOPHAGOGASTRODUODENOSCOPY Dysphagia, unspecified type documented [...] ??Left knee has advanced varus arthritis with vlxr-tt-bqcz contact in the posteromedial aspect. ?? us Jossie SANDOVAL IMG XR PROCEDURES Final Resul t documented in this encounter Visit Diagnoses Diagnosis Primary osteoarthritis of both knees- Primary Hx of total knee replacement, right Cerebrovascular accident (CVA), unspecified mechanism (HCC) documented in this encounter Care Teams It Communications Manager Relationship Specialty Start Date End Date Wolfgang Serrano MD PCP - General Family Medicine 05/05/23 08/02/24 Unknown, Notinfile 03/12/22 [place] [address] [place] [address] 03/12/22 Chuy Enriquez MD [address] [place] [address] Consulting Physician Pulmonary Disease 10/13/23 Luis Felipe Cedillo MD [address] [place] [address] Consulting Physician Gastroenterology 10/13/23 Marlene Thornton MD [address] [place] [address] Surgeon Vascular Surgery 11/10/23 documented as of this encounter
--- OUTSIDE RECORDS SUMMARY | 2024-10-11 03:01 | XMS_ITS | Encounter Summary ---
Author Organization [facility] Healthcare Address [address] [place] [address] Care Team Providers Care Transportation Assistant Name Role Phone Wolfgang Serrano MD Primary Care Provider [phone] Unknown, Notinfile Unavailable Unavailable Santino Funk MD Unavailable Chuy Enriquez MD Unavailable Luis Felipe Cedillo MD Unavailable [phone] Marlene Thornton MD Unavailable Reason for Visit * Auth/Cert (Routine) Specialty Diagnoses / Procedures Referred By Contac t Referred To Contact Referral ID Status Reason Start Date Expiration Date Visits Re quested Visits Authorized [id number] 1 60 Encounter Details Date Type Department Care Team (Latest Contact Info) Description 01/14/2024 11:00 AM CDT Home Care Visit [facility] Health [place] [address] [address] [place] [address] Kavya Basurto, OT OT INITIAL [...] Recorded Patient Health Questionnaire-2 Score 0 01/06/2024 [facility] [place] of Occupat ional Health - Occupational Stress [...] on file Legal Sex Male 3:25 PM CHANNEL PARTNERS Gender Identity Not on file Sexual Orientation [...] was referred to OT s/p admission to [facility] from 12/07/2023 - 12/15/2023 (8 [...] (Latest Contact Info) Description 10/23/2024 10:00 AM CHANNEL PARTNERS Hospital Encounter [facility] Operating Room [address] [place] [address] [place] [address] [facility] [address] [place], [place] [id number] 10/23/2024 10:00 AM CHANNEL PARTNERS - 10/23/2024 1:00 PM CHANNEL PARTNERS Surgery [facility] Operating Room [address] [place] [address] [place] [address] [facility] [address] [place] [address] ARTHROPLASTY TOTAL KNEE LEFT Scheduled Procedures Name Priority Associated Diagnoses Date/Ti me ARTHROPLASTY TOTAL KNEE left knee osteoarthritis 10/23/2024 10:00 AM CHANNEL PARTNERS ESOPHAGOGASTRODUODENOSCOPY Dysphagia, unspecified type documented as of [...] home health visit Disciplines: SN, PT, OT, INSURANCE CLAIMS SPECIALIST, USABILITY SPECIALIST, Skilled Disciplines Monitor patient's vital signs [...] visit during episode of care Description: Home health clinician to measure vital signs during every [...] information documented in this encounter Care Teams Transportation Assistant Relationship Specialty Start Date End Date Wolfgang Serrano MD PCP - General Family Medicine 05/05/23 08/02/24 Unknown, Notinfile 03/12/22 [place] [address] [facility] [address] [place] [address] 03/12/22 Chuy Enriquez MD [address] [place] [address] Consulting Physician Pulmonary Disease 10/13/23 Luis Felipe Cedillo MD [address] [place] [address] Consulting Physician Gastroenterology 10/13/23 Marlene Thornton MD [address] [place] [address] Surgeon Vascular Surgery 11/10/23 documented as of this encounter
--- OUTSIDE RECORDS SUMMARY | 2024-10-11 03:01 | XMS_ITS | Encounter Summary ---
Author Organization [facility] Healthcare Address [address] [place] [address] Care Team Providers Care Learning Administrator Name Role Phone Wolfgang Serrano MD Primary Care Provider Unknown, Notinfile Unavailable Unavailable Santino Funk MD Unavailable Chuy Enriquez MD Unavailable Luis Felipe Cedillo MD Unavailable Marlene Thornton MD Unavailable [phone] Reason for Visit * Auth/Cert (Routine) Specialty Diagnoses / Procedures Referred By Contac t Referred To Contact Referral ID Status Reason Start Date Expiration Date Visits Re quested Visits Authorized [id number] 1 60 Encounter Details Date Type Department Care Team (Late st Contact Info) Description 01/11/2024 Home Care Visit [facility] Health [address] [place] [address] João Gardner, VENDOR SPECIALIST CASE COMMUNICATION Social History Tobacco Use Types [...] Sometimes 01/09/2024 [facility] Utilities Answer Date Recorded In the past [...] Recorded Patient Health Questionnaire-2 Score 0 01/06/2024 [facility] [place] of Occupat ional Health - Occupational Stress [...] on file Legal Sex Male 3:25 PM ADMINISTRATIVE RESOURCES ASSOCIATE Gender Identity Not on file Sexual Orientation Not on file documented as of this encounter Plan of Treatment Upcoming Encounters Date Type Department Care Team (Latest Contact Info) Description 10/23/2024 10:00 AM ADMINISTRATIVE RESOURCES ASSOCIATE Hospital Encounter [facility] Operating Room [address] [place] [address] [place] [address] [address] [address] 10/23/2024 10:00 AM ADMINISTRATIVE RESOURCES ASSOCIATE - 10/23/2024 1:00 PM ADMINISTRATIVE RESOURCES ASSOCIATE Surgery [facility] Operating Room [address] [place] [address] [place] [address] [address] ARTHROPLASTY TOTAL KNEE LEFT Scheduled Procedures Name Priority Associated Diagnoses Date/Ti me ARTHROPLASTY TOTAL KNEE left knee osteoarthritis 10/23/2024 10:00 AM ADMINISTRATIVE RESOURCES ASSOCIATE ESOPHAGOGASTRODUODENOSCOPY Dysphagia, unspecified type documented as of this encounter Visit Diagnoses Not on filedocumented in this encounter Care Teams Learning Administrator Relationship Specialty Start Date End Date Wolfgang Serrano MD PCP - General Family Medicine 05/05/23 08/02/24 Unknown, Notinfile 03/12/22 [place] [address] [address] [facility] [address] [place] [address] 03/12/22 Chuy Enriquez MD [address] [facility] [address] [place] [address] Consulting Physician Pulmonary Disease 10/13/23 Luis Felipe Cedillo MD [address] [facility] [address] [place] [address] Consulting Physician Gastroenterology 10/13/23 Marlene Thornton MD [address] [facility] [address] [address] Surgeon Vascular Surgery 11/10/23 documented as of this encounter
--- OUTSIDE RECORDS SUMMARY | 2024-10-11 03:01 | XMS_ITS | Encounter Summary ---
Author Organization [facility] Healthcare Address [address] [place] [address] Care Team Providers Care Carpenter Maintenance Name Role Phone Wolfgang Serrano MD Primary Care Provider [phone] Unknown, Notinfile Unavailable Unavailable Santino Funk MD Unavailable Chuy Enriquez MD Unavailable Luis Felipe Cedillo MD Unavailable Marlene Thornton MD Unavailable Reason for Visit * Auth/Cert (Routine) Specialty Diagnoses / Procedures Referred By Contac t Referred To Contact Referral ID Status Reason Start Date Expiration Date Visits Re quested Visits Authorized [id number] 1 60 Encounter Details Date Type Department Care Team (Late st Contact Info) Description 01/17/2024 4:00 PM CDT Home Care Visit [facility] Health [place] [address] [address] [place] [address] Delio Abel, PT PT HOME VISIT Social History [...] any clubs o r organizations such as yarsanism groups, unions, fraternal or athletic groups, or [...] Recorded Patient Health Questionnaire-2 Score 0 01/06/2024 [facility] [place] of Occupat ional Health - Occupational Stress [...] on file Legal Sex Male 3:25 PM WEB KNITTER Gender Identity Not on file Sexual Orientation [...] (Latest Contact Info) Description 10/23/2024 10:00 AM WEB KNITTER Hospital Encounter [facility] Operating Room [address] [place] [address] [place] [address] [address] 10/23/2024 10:00 AM WEB KNITTER - 10/23/2024 1:00 PM WEB KNITTER Surgery [facility] Operating Room [address] [place] [address] [place] [address] [address] ARTHROPLASTY TOTAL KNEE LEFT Scheduled Procedures Name Priority Associated Diagnoses Date/Ti me ARTHROPLASTY TOTAL KNEE left knee osteoarthritis 10/23/2024 10:00 AM WEB KNITTER ESOPHAGOGASTRODUODENOSCOPY Dysphagia, unspecified type documented as of [...] home health visit Disciplines: SN, PT, OT, BOILER FIREMAN, AUDIT CONSULTANT, Skilled Disciplines Monitor patient's vital signs every [...] visit during episode of care Description: Home department clinician to measure vital signs during every [...] resistance. Patient stood 2x2 minutes holding onto [employer] and performed 2 sets of 8 reps of standing marching holding onto [employer]. Patient performed 5 reps of sit to stands from wheelchair. documented in this encounter Care Teams Carpenter Maintenance Relationship Specialty Start Date End Date Wolfgang Serrano MD PCP - General Family Medicine 05/05/23 08/02/24 Unknown, Notinfile 03/12/22 [place] [address] [facility] [address] [place] [address] 03/12/22 Chuy Enriquez MD [address] [facility] [address] [place] [address] Consulting Physician Pulmonary Disease 10/13/23 Luis Felipe Cedillo MD [address] [facility] [address], [place] [address] Consulting Physician Gastroenterology 10/13/23 Marlene Thornton MD [address] [facility] [address] [address] Surgeon Vascular Surgery 11/10/23 documented as of this encounter
--- OUTSIDE RECORDS SUMMARY | 2024-10-11 03:01 | XMS_ITS | Encounter Summary ---
Author Organization [facility] Healthcare Address [address] [place] [address] Care Team Providers Care Kiln Furniture Caster Name Role Phone Wolfgang Serrano MD Primary Care Provider Unknown, Notinfile Unavailable Unavailable Santino Funk MD Unavailable [phone] Chuy Enriquez MD Unavailable Luis Felipe Cedillo MD Unavailable Marlene Thornton MD Unavailable Reason for Visit * Auth/Cert (Routine) Specialty Diagnoses / Procedures Referred By Contac t Referred To Contact Referral ID Status Reason Start Date Expiration Date Visits Re quested Visits Authorized [id number] 1 60 Encounter Details Date Type Department Care Team (Late st Contact Info) Description 01/18/2024 1:00 PM CDT Home Care Visit [facility] Health [place] [address] [address] [place] [address] Sarah Paulino COTA OT HOME [...] doctor or pharmacy Sometimes 01/09/2024 [facility] Utilities Answer Date Recorded In the [...] any clubs o r organizations such as restoration groups, unions, fraternal or athletic groups, or [...] Questionnaire-2 Score 0 01/06/2024 [facility] [place] of Occupat ional Health - Occupational Stress [...] on file Legal Sex Male 3:25 PM PERMIT REVIEW ASSISTANT Gender Identity Not on file Sexual [...] (Latest Contact Info) Description 10/23/2024 10:00 AM PERMIT REVIEW ASSISTANT Hospital Encounter [facility] Operating Room [address] [place] [address] [place] [address] [address] 10/23/2024 10:00 AM PERMIT REVIEW ASSISTANT - 10/23/2024 1:00 PM PERMIT REVIEW ASSISTANT Surgery [facility] Operating Room [address] [place] [address] [place] [address] [address] ARTHROPLASTY TOTAL KNEE LEFT Scheduled Procedures Name Priority Associated Diagnoses Date/Ti me ARTHROPLASTY TOTAL KNEE left knee osteoarthritis 10/23/2024 10:00 AM PERMIT REVIEW ASSISTANT ESOPHAGOGASTRODUODENOSCOPY Dysphagia, unspecified type documented as [...] home health visit Disciplines: SN, PT, OT, PLATFORM LOADER, TRAVEL MED SURG RN, Skilled Disciplines Monitor patient's vital signs every [...] visit during episode of care Description: Home bottom cager to measure vital signs during every home [...] bars. Pt reports he will have his shipping and receiving look at it. Instructed on having son-in-law adjust bedrail in order for pt to be able to transfer in/out of bed with more ease. Pt reports he will have his son-in-law adjust bedrail. documented in this encounter Care Teams Kiln Furniture Caster Relationship Specialty Start Date End Date Wolfgang Serrano MD PCP - General Family Medicine 05/05/23 08/02/24 Unknown, Notinfile 03/12/22 [place] [address] [facility] [address] [place] [address] 03/12/22 Chuy Enriquez MD [address] [facility] [address] [place] [address] Consulting Physician Pulmonary Disease 10/13/23 [place] Felipe Cedillo MD [address] [facility] [address] [place] [address] Consulting Physician Gastroenterology 10/13/23 Marlene Thornton MD [address] [facility] [address] [place] [address] Surgeon Vascular Surgery 11/10/23 documented as of this encounter
--- OUTSIDE RECORDS SUMMARY | 2024-10-11 03:01 | XMS_ITS | Encounter Summary ---
Author Organization [facility] Healthcare Address [address] [place] [address] Care Team Providers Care Social Sciences Research Scientist Name Role Phone Wolfgang Serrano MD Primary Care Provider [phone] Unknown, Notinfile Unavailable Unavailable Santino Funk MD Unavailable Chuy Enriquez MD Unavailable Luis Felipe Cedillo MD Unavailable [phone] Marlene Thornton MD Unavailable Reason for Visit * Auth/Cert (Routine) Specialty Diagnoses / Procedures Referred By Contac t Referred To Contact Referral ID Status Reason Start Date Expiration Date Visits Re quested Visits Authorized [id number] 1 60 Encounter Details Date Type Department Care Team (Late st Contact Info) Description 01/12/2024 Home Care Visit [facility] [address] [place] [address] João Gardner LCSW ENGLISH DIVISION CHAIR DISCIPLINE DISCHARGE Social History Tobacco Use Types [...] from doctor or pharmacy Sometimes 03/08/2024 [facility] Utilities Answer Date Recorded In the past [...] 0 01/06/2024 [facility] of Occupat ional Health - Occupational Stress [...] on file Legal Sex Male 3:25 PM SAFETY INTERN Gender Identity Not on file Sexual Orientation Not on file documented as of this encounter Plan of Treatment Upcoming Encounters Date Type Department Care Team (Latest Contact Info) Description 10/23/2024 10:00 AM SAFETY INTERN Hospital Encounter [facility] Operating Room [address] [place] [address] [place] [address] [address] [address] 10/23/2024 10:00 AM SAFETY INTERN - 10/23/2024 1:00 PM SAFETY INTERN Surgery [facility] Operating Room [address] [place] [address] [place] [address] [address] [address] ARTHROPLASTY TOTAL KNEE LEFT Scheduled Procedures Name Priority Associated Diagnoses Date/Ti me ARTHROPLASTY TOTAL KNEE left knee osteoarthritis 10/23/2024 10:00 AM SAFETY INTERN ESOPHAGOGASTRODUODENOSCOPY Dysphagia, unspecified type documented as of this encounter Visit Diagnoses Not on filedocumented in this encounter Home Health Visit - Care Plan Visit Details Visit Type -ENGLISH DIVISION CHAIR Discipline D ischarge Discipline -Medical Social Work Problems Problem Description Start Date Status Goals Interve ntions ENGLISH DIVISION CHAIR Resource Needs Disciplines: Social Work Deficit related to resources. 01/12/2024 Resolved on 01/12/2024 1 goal linked to scheduled/documen ana intervention 1 goal intervention scheduled/documen ana in this visit ENGLISH DIVISION CHAIR Emotional Support Needs Disciplines: Social Work Deficit related to emotional support. 01/12/2024 Resolved on 01/12/2024 1 goal linked to scheduled/documen ana intervention 1 goal intervention scheduled/documen ana in this visit Goals Goal Associated Problem Outcome Goal Met? Visit Notes Understanding of available resources Description: Resource needs met as evidenced by patient/family/ caregiver verbalizes understanding of available resources and ways to obtain these. ENGLISH DIVISION CHAIR Resource Needs Met Yes Increase emotional support Description: Patient/ family/ caregiver understands impact of illness as evidenced by verbalizing acceptance of the disease process. ENGLISH DIVISION CHAIR Emotional Support Needs Met Yes Interventions Intervention Associated Problem/Goal Status Variance Visit Notes Provide assistance with identifying appropriate community resources Description: Provide assistance with identifying appropriate community resources Problem:ENGLISH DIVISION CHAIR Resource Needs Goal:Understanding of available resources Completed ENGLISH DIVISION CHAIR PSYCHOSOCIAL SBAR Visit with pt and family completed on: 01/12/24 SITUATION: Pt is a 78 year old male admitted to home health due to s/p admission to [facility] from 12/07/2023 - 12/15/2023 secondary to acute CVA. 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 Dtr in from [place], dtr plans on returning to [place] this Wednesday --Primary caregiver: Spouse works during [...] is not able to work as [employer] carrier driver Assets: Supportive family, pt positive and motivated to get better --HCPOA in place no. working on it now with an sports attorney Orientation: alert and oriented, pt shares he has some short term memory loss Mood/affect/coping skills: denies --Anxiety/depression: denies Social Connections --Frequency of Communication with Friends and Family: lives with spouse, all kids live out of state --Belong to advent, clubs or organizations: not at this time Pt finds meaning/pleasure: used to enjoy going to advent Safety concerns/barriers: 2 steps to enter/exit front and garage steps, no handrails Smoke alarms/fire extinguisher in home yes Pain: Pt denies RECOMMENDATIONS/SOCIAL WORK PLANS: get family or friend *ENGLISH DIVISION CHAIR provided local listing of private duty agencies *ENGLISH DIVISION CHAIR to make referral fpr expedited services to [facility] [phone] for paid in-home care services, ERB, MOW and medication dispenser *ENGLISH DIVISION CHAIR phoned the [facility] program [phone] for paid in director of operations home health services and after pt was assessed they determined that pt would not qualify due to having too much income *ENGLISH DIVISION CHAIR provided resource for respite services: [facility] offers a respite program which reimburses the caregiver up to $200 a month for respite services [phone] ENGLISH DIVISION CHAIR assessed patient emotional wellbeing, mental health, strengths, resources, and unmet needs. ENGLISH DIVISION CHAIR provided emotional support and encouragement to patient and family through conversation, active listening, and supportive presence. Patient and family verbalized understanding of all resources discussed. Patient and family had no other needs or concerns. ENGLISH DIVISION CHAIR provided contact information and encouraged patient and family to contact ENGLISH DIVISION CHAIR as needs arise. ENGLISH DIVISION CHAIR will coordinate care with Home Care Team. Provide Emotional Support Description: Provide emotional support Problem:ENGLISH DIVISION CHAIR Emotional Support Needs Goal:Increase emotional support Completed ENGLISH DIVISION CHAIR provided emotional support and encouragement to patient through conversation, active listening and supportive presence documented in this encounter Care Teams Social Sciences Research Scientist Relationship Specialty Start Date End Date Wolfgang Serrano MD PCP - General Family Medicine 05/05/23 08/02/24 Unknown, Notinfile 03/12/22 [place] [address] [facility] [address] [place] [address] 03/12/22 Chuy Enriquez MD [address] [place] [address] Consulting Physician Pulmonary Disease 10/13/23 Luis Felipe Cedillo MD [address] [place] [address] Consulting Physician Gastroenterology 10/13/23 Marlene Thornton MD [address] [facility] [address], [place] [address] Surgeon Vascular Surgery 11/10/23 documented as of this encounter
--- OUTSIDE RECORDS SUMMARY | 2024-10-11 03:01 | XMS_ITS | Encounter Summary ---
Author Organization [facility] Healthcare Address [address] [place] [address] Care Team Providers Care Gum Machine Operator Name Role Phone Wolfgang Serrano MD Primary Care Provider Unknown, Notinfile Unavailable Unavailable Santino Funk MD Unavailable [phone] Chuy Enriquez MD Unavailable [phone] Luis Felipe Cedillo MD Unavailable Marlene Thornton MD Unavailable Encounter Details Date Type Department Care Team (Late st Contact Info) Description 01/17/2024 Telephone [facility] Scheduling [address] [place] [address] Resource, Homecare Scheduling Social History Tobacco Use [...] or pharmacy Sometimes 01/09/[address] [facility] Utilities Answer Date Recorded In the [...] Recorded Patient Health Questionnaire-2 Score 0 01/06/2024 [facility] of Occupat ional Health - Occupational [...] on file Legal Sex Male 3:25 PM MEETING SPECIALIST Gender Identity Not on file Sexual Orientation Not on file documented as of this encounter Miscellaneous Notes * Telephone Encounter - Aminta Melo - 01/17/2024 10:17 AM CDT 01/16 called pt to advise that we are still working to assign gh documented in this encounter Plan of Treatment Upcoming Encounters Date Type Department Care Team (Latest Contact Info) Description 10/23/2024 10:00 AM MEETING SPECIALIST Hospital Encounter [facility] Operating Room [address] [place] [address] Grey Dykes MD [address] [place] [address] 10/23/2024 10:00 AM MEETING SPECIALIST - 10/23/2024 1:00 PM MEETING SPECIALIST Surgery [facility] Operating Room [address] [place] [address] [place] [address] [facility] [address] [place] [address] ARTHROPLASTY TOTAL KNEE LEFT Scheduled Procedures Name Priority Associated Diagnoses Date/Ti me ARTHROPLASTY TOTAL KNEE left knee osteoarthritis 10/23/2024 10:00 AM MEETING SPECIALIST ESOPHAGOGASTRODUODENOSCOPY Dysphagia, unspecified type documented as of this encounter Visit Diagnoses Not on filedocumented in this encounter Care Teams Gum Machine Operator Relationship Specialty Start Date End Date Wolfgang Serrano MD PCP - General Family Medicine 05/05/23 08/02/24 Unknown, Notinfile 03/12/22 [place] [address] [facility] [address] [place] [address] 03/12/22 Chuy Enriquez MD [address] [place] [address] Consulting Physician Pulmonary Disease 10/13/23 Luis Felipe Cedillo MD [address] [place] [address] Consulting Physician Gastroenterology 10/13/23 Marlene Thornton MD [address] [place] [address] Surgeon Vascular Surgery 11/10/23 documented as of this encounter
--- OUTSIDE RECORDS SUMMARY | 2024-10-11 03:01 | XMS_ITS | Encounter Summary ---
Author Organization [facility] Healthcare Address [address] [place] [address] Care Team Providers Care Loan Adviser Name Role Phone Wolfgang Serrano MD Primary Care Provider [phone] Unknown, Notinfile Unavailable Unavailable Santino Funk MD Unavailable [phone] Chuy Enriquez MD Unavailable [phone] Luis Felipe Cedillo MD Unavailable [phone] Marlene Thornton MD Unavailable Reason for Referral * MRI/CAT/PET Scan (Routine) - Closed Specialty Diagnoses / Procedures Referred By Contac t Referred To Contact Radiology Diagnoses Lung nodule Procedures CT chest without contrast Chuy Enriquez MD [address] [facility] [address] [place] [address] Phone: tel: fax: [facility] [address] [place] [address] Referral ID Status Reason Start Date Expiration Date Visits Re quested Visits Authorized [id number] Closed 01/18/2024 02/17/2024 1 1 Reason for Visit * MRI/CAT/PET Scan (Routine) - Closed Specialty Diagnoses / Procedures Referred By Dillan t Referred To Contact Radiology Diagnoses Lung nodule Procedures CT chest without contrast Chuy Enriquez MD [address] [place] [address] Phone: tel: fax: [facility] [address] [place] [address] Referral ID Status Reason Start Date Expiration Date Visits Re quested Visits Authorized [id number] Closed 01/18/2024 02/17/2024 1 1 Encounter Details Date Type Department Care Team (Latest Contact Info) Description 01/18/2024 9:21 AM CDT - 01/18/2024 11:59 PM CDT Hospital Encounter [facility] Imaging and Radiology [address] [place] [address] Lung nodule Discharge Disposition: Discharge [...] materials from doctor or pharmacy Sometimes 01/09/2024 [facility] Utilities Answer Date Recorded In the past 12 months has th e [employer], gas, oil, or water [employer] threatened to shut off services in your [...] week 12/16/2023 How often do you attend [facility] or [facility] services? More than 4 times [...] Patient Health Questionnaire-2 Score 0 01/06/2024 [facility] of Occupat ional Health - [...] on file Legal Sex Male 3:25 PM GUEST SERVICES LEAD Gender Identity Not on file Sexual [...] (Latest Contact Info) Description 10/23/2024 10:00 AM GUEST SERVICES LEAD Hospital Encounter [facility] Operating Room [address] [place] [address] [place] [address] [id number] 10/23/2024 10:00 AM GUEST SERVICES LEAD - 10/23/2024 1:00 PM GUEST SERVICES LEAD Surgery [facility] Operating Room [address] [place] [address] [place] [address] [facility] [address] [place], [place] [id number] ARTHROPLASTY TOTAL KNEE LEFT Scheduled Procedures Name Priority Associated Diagnoses Date/Ti me ARTHROPLASTY TOTAL KNEE left knee osteoarthritis 10/23/2024 10:00 AM GUEST SERVICES LEAD ESOPHAGOGASTRODUODENOSCOPY Dysphagia, unspecified type documented as [...] classified documented in this encounter Care Teams Loan Adviser Relationship Specialty Start Date End Date Wolfgang Serrano MD PCP - General Family Medicine 05/05/23 08/02/24 Unknown, Notinfile 03/12/22 [place] [address] [address] 03/12/22 Chuy Enriquez MD [address] [facility] [address] [place] [address] Consulting Physician Pulmonary Disease 10/13/23 Luis Felipe Cedillo MD [address] [facility] [address] [address] Consulting Physician Gastroenterology 10/13/23 Marlene Thornton MD [address] [facility] [address] [address] Surgeon Vascular Surgery 11/10/23 documented as of this encounter
--- OUTSIDE RECORDS SUMMARY | 2024-10-11 03:01 | XMS_ITS | Encounter Summary ---
Author Organization [facility] Healthcare Address [address] [place] [address] Care Team Providers Care Fireman Name Role Phone Wolfgang Serrano MD Primary Care Provider Unknown, Notinfile Unavailable Unavailable Santino Funk MD Unavailable [phone] Chuy Enriquez MD Unavailable [phone] Luis Felipe Cedillo MD Unavailable [phone] Marlene Thornton MD Unavailable Reason for Visit * Auth/Cert (Routine) Specialty Diagnoses / Procedures Referred By Contac t Referred To Contact Referral ID Status Reason Start Date Expiration Date Visits Re quested Visits Authorized [id number] 1 60 Encounter Details Date Type Department Care Team (Late st Contact Info) Description 01/13/2024 12:00 PM CDT Home Care Visit [facility] [address] [place] [address] Bing Walker, PICK PACK WORKER PT HOME VISIT Social History Tobacco Use [...] materials from doctor or pharmacy Sometimes 01/09/2024 [facility] Utilities Answer Date Recorded In the [...] Recorded Patient Health Questionnaire-2 Score 0 01/06/2024 [facility] of Occupat ional Health - Occupational Stress [...] on file Legal Sex Male 3:25 PM POWER SYSTEM DISPATCHER Gender Identity Not on file Sexual Orientation [...] (Latest Contact Info) Description 10/23/2024 10:00 AM POWER SYSTEM DISPATCHER Hospital Encounter [facility] Operating Room [address] [place] [address] [place] [address] [address] 10/23/2024 10:00 AM POWER SYSTEM DISPATCHER - 10/23/2024 1:00 PM POWER SYSTEM DISPATCHER Surgery [facility] Operating Room [address] [place] [address] [place] [address] [address] ARTHROPLASTY TOTAL KNEE LEFT Scheduled Procedures Name Priority Associated Diagnoses Date/Ti me ARTHROPLASTY TOTAL KNEE left knee osteoarthritis 10/23/2024 10:00 AM POWER SYSTEM DISPATCHER ESOPHAGOGASTRODUODENOSCOPY Dysphagia, unspecified type documented as of [...] home health visit Disciplines: SN, PT, OT, RECRUITING COORDINATOR, DOCUMENT SCANNER, Skilled Disciplines Monitor patient's vital signs every [...] visit during episode of care Description: Home lump receiver to measure vital signs during every home [...] day documented in this encounter Care Teams Fireman Relationship Specialty Start Date End Date Wolfgang Serrano MD PCP - General Family Medicine 05/05/23 08/02/24 Unknown, Notinfile 03/12/22 [place] [address] [place], [place] [id number] 03/12/22 Chuy Enriquez MD [address] [place] [address] Consulting Physician Pulmonary Disease 10/13/23 Luis Felipe Cedillo MD [address] [place] [address] Consulting Physician Gastroenterology 10/13/23 Marlene Thornton MD [address] [place] [address] Surgeon Vascular Surgery 11/10/23 documented as of this encounter
--- OUTSIDE RECORDS SUMMARY | 2024-10-11 03:01 | XMS_ITS | Encounter Summary ---
Author Organization [facility] Healthcare Address [address] [place] [address] Care Team Providers Care Rag Sorter And Cutter Name Role Phone Wolfgang Serrano MD Primary Care Provider [phone] Unknown, Notinfile Unavailable Unavailable Santino Funk MD Unavailable Chuy Enriquez MD Unavailable Luis Felipe Cedillo MD Unavailable [phone] Marlene Thornton MD Unavailable [phone] Reason for Visit * Auth/Cert (Routine) Specialty Diagnoses / Procedures Referred By Contac t Referred To Contact Referral ID Status Reason Start Date Expiration Date Visits Re quested Visits Authorized [id number] 1 60 Encounter Details Date Type Department Care Team (Late st Contact Info) Description 01/18/2024 Home Care Visit [facility] [address] [place] [address] Kavya Basurto, OT TELEPHONE ENCOUNTER Social History [...] doctor or pharmacy Sometimes 01/09/2024 [facility] Utilities Answer Date Recorded [...] any clubs o r organizations such as scientology groups, unions, fraternal or athletic groups, or [...] Health Questionnaire-2 Score 0 01/06/2024 [facility] of Occupat ional Health - Occupational Stress [...] file Legal Sex Male 3:25 PM SUPERVISOR HOME ENERGY CONSULTANT Gender Identity Not on file Sexual Orientation Not on file documented as of this encounter Plan of Treatment Upcoming Encounters Date Type Department Care Team (Latest Contact Info) Description 10/23/2024 10:00 AM SUPERVISOR HOME ENERGY CONSULTANT Hospital Encounter [facility] Operating Room [address] [place] [address] [place] [address] [address] [address] 10/23/2024 10:00 AM SUPERVISOR HOME ENERGY CONSULTANT - 10/23/2024 1:00 PM SUPERVISOR HOME ENERGY CONSULTANT Surgery [facility] Operating Room [address] [place] [address] [place] [address] [address] ARTHROPLASTY TOTAL KNEE LEFT Scheduled Procedures Name Priority Associated Diagnoses Date/Ti me ARTHROPLASTY TOTAL KNEE left knee osteoarthritis 10/23/2024 10:00 AM SUPERVISOR HOME ENERGY CONSULTANT ESOPHAGOGASTRODUODENOSCOPY Dysphagia, unspecified type documented as of this encounter Visit Diagnoses Not on filedocumented in this encounter Care Teams Rag Sorter And Cutter Relationship Specialty Start Date End Date Wolfgang Serrano MD PCP - General Family Medicine 05/05/23 08/02/24 Unknown, Notinfile 03/12/22 [place] [address] [facility] [address] [place] [address] 03/12/22 Chuy Enriquez MD [address] [facility] [address] [place] [address] Consulting Physician Pulmonary Disease 10/13/23 Luis Felipe Cedillo MD [address] [facility] [address] [place] [address] Consulting Physician Gastroenterology 10/13/23 Marlene Thornton MD [address] [facility] [address] [address] Surgeon Vascular Surgery 11/10/23 documented as of this encounter
--- OUTSIDE RECORDS SUMMARY | 2024-10-11 03:01 | XMS_ITS | Encounter Summary ---
Author Organization [facility] Healthcare Address [address] [place] [address] Care Team Providers Care Library Circulation Assistant Name Role Phone Wolfgang Serrano MD Primary Care Provider Unknown, Notinfile Unavailable Unavailable Santino Funk MD Unavailable [phone] Chuy Enriquez MD Unavailable Luis Felipe Cedillo MD Unavailable [phone] Marlene Thornton MD Unavailable Encounter Details Date Type Department Care Team (Late st Contact Info) Description 01/11/2024 Telephone [facility] Scheduling [address] [place] [address] Dorita Gonzalez Social History Tobacco Use Types [...] materials from doctor or pharmacy Sometimes 01/09/2024 [facility] Utilities Answer Date Recorded In the [...] Recorded Patient Health Questionnaire-2 Score 0 01/06/2024 [facility] of Occupat ional Health - Occupational Stress [...] on file Legal Sex Male 3:25 PM PATHOLOGY SUPERVISOR Gender Identity Not on file Sexual [...] (Latest Contact Info) Description 10/23/2024 10:00 AM PATHOLOGY SUPERVISOR Hospital Encounter [facility] Operating Room [id number] [place] [address] [place] [id number] [place] [address] 10/23/2024 10:00 AM PATHOLOGY SUPERVISOR - 10/23/2024 1:00 PM PATHOLOGY SUPERVISOR Surgery [facility] Operating Room [address] [place] [address] [place] [address] [facility] [address] [place], [place] [id number] ARTHROPLASTY TOTAL KNEE LEFT Scheduled Procedures Name Priority Associated Diagnoses Date/Ti me ARTHROPLASTY TOTAL KNEE left knee osteoarthritis 10/23/2024 10:00 AM PATHOLOGY SUPERVISOR ESOPHAGOGASTRODUODENOSCOPY Dysphagia, unspecified type documented as of this encounter Visit Diagnoses Not on filedocumented in this encounter Care Teams Library Circulation Assistant Relationship Specialty Start Date End Date Wolfgang Serrano MD PCP - General Family Medicine 05/05/23 08/02/24 Unknown, Notinfile 03/12/22 [place] [address] [facility] [address] [place] [address] 03/12/22 Chuy Enriquez MD [address] [facility] [address] [place] [address] Consulting Physician Pulmonary Disease 10/13/23 Luis Felipe Cedillo MD [address] [facility] [address] [place] [address] Consulting Physician Gastroenterology 10/13/23 Marlene Thornton MD [address] [facility] [address] [address] Surgeon Vascular Surgery 11/10/23 documented as of this encounter
--- OUTSIDE RECORDS SUMMARY | 2024-10-11 03:01 | XMS_ITS | Encounter Summary ---
Author Organization [facility] Healthcare Address [address] [place] [address] Care Team Providers Care Social Media Marketing Specialist Name Role Phone Wolfgang Serrano MD Primary Care Provider [phone] Unknown, Notinfile Unavailable Unavailable Santino Funk MD Unavailable Chuy Enriquez MD Unavailable Luis Felipe Cedillo MD Unavailable Marlene Thornton MD Unavailable [phone] Reason for Visit * Auth/Cert (Routine) Specialty Diagnoses / Procedures Referred By Contac t Referred To Contact Referral ID Status Reason Start Date Expiration Date Visits Re quested Visits Authorized [id number] 1 60 Encounter Details Date Type Department Care Team (Late st Contact Info) Description 01/17/2024 Home Care Visit [facility] [address] [place] [address] Michelle Cornelius RN SN TRIAGE ENCOUNTER Social [...] materials from doctor or pharmacy Sometimes 01/09/2024 [facility] Utilities Answer Date Recorded In [...] [facility] [place] of Occupat ional Health - Occupational Stress [...] on file Legal Sex Male 3:25 PM ALODIZE MACHINE HELPER Gender Identity Not on file Sexual Orientation Not on file documented as of this encounter Miscellaneous Notes * Triage Note - Michelle Cornelius RN - 01/17/2024 9:31 AM CDT Reason for call: APPOINTMENT TIME Knife Cutter: GUNJAN GTZ Relationship to patient: SELF Phone number of call or contact centre coach: SEE BELOW Return call time: 933 Communication details: 930 GUNJAN GTZ [phone] C [id number] 08 14 1945 RE: WHICH THERPIST AND [...] (Latest Contact Info) Description 10/23/2024 10:00 AM ALODIZE MACHINE HELPER Hospital Encounter [facility] Operating Room [address] [place] [address] [place] [address] [address] 10/23/2024 10:00 AM ALODIZE MACHINE HELPER - 10/23/2024 1:00 PM ALODIZE MACHINE HELPER Surgery [facility] Operating Room [address] [place] [address] [place] [address] [address] ARTHROPLASTY TOTAL KNEE LEFT Scheduled Procedures Name Priority Associated Diagnoses Date/Ti me ARTHROPLASTY TOTAL KNEE left knee osteoarthritis 10/23/2024 10:00 AM ALODIZE MACHINE HELPER ESOPHAGOGASTRODUODENOSCOPY Dysphagia, unspecified type documented as of this encounter Visit Diagnoses Not on filedocumented in this encounter Home Health Visit - Care Plan Visit Details Visit Type -SN Triage Encoun ter Discipline -Assisted Problems Problem Description Start Date Status Goals Interventions Homebound Status Disciplines: Skilled Disciplines Patient's homebound status 01/09/2024 Active 1 goal linked to scheduled/docume nted intervention 1 goal intervention scheduled/documen ana in this visit Monitor patient's vital signs every home health visit Disciplines: SN, PT, OT, ADVANCED MANUFACTURING TECHNICIAN, COMSEC MANAGER, Skilled Disciplines Monitor patient's vital signs [...] visit during episode of care Description: Home firer kiln to measure vital signs during every home [...] Scheduled documented in this encounter Care Teams Social Media Marketing Specialist Relationship Specialty Start Date End Date Wolfgang Serrano MD PCP - General Family Medicine 05/05/23 08/02/24 Unknown, Notinfile 03/12/22 [place] [address] [facility] [address] [place] [address] 03/12/22 Chuy Enriquez MD [address] [facility] [address] [place] [address] Consulting Physician Pulmonary Disease 10/13/23 Luis Felipe Cedillo MD [address] [facility] [address] [address] Consulting Physician Gastroenterology 10/13/23 Marlene Thornton MD [address] [facility] [address] [address] Surgeon Vascular Surgery 11/10/23 documented as of this encounter
--- OUTSIDE RECORDS SUMMARY | 2024-10-11 03:01 | XMS_ITS | Encounter Summary ---
Author Organization [facility] Healthcare Address [address] [place] [address] Care Team Providers Care Education Assistant Name Role Phone Wolfgang Serrano MD Primary Care Provider [phone] Unknown, Notinfile Unavailable Unavailable Santino Funk MD Unavailable Chuy Enriquez MD Unavailable Luis Felipe Cedillo MD Unavailable [phone] Marlene Thornton MD Unavailable [phone] Reason for Visit * Auth/Cert (Routine) Specialty Diagnoses / Procedures Referred By Contac t Referred To Contact Referral ID Status Reason Start Date Expiration Date Visits Re quested Visits Authorized [id number] 1 60 Encounter Details Date Type Department Care Team (Late st Contact Info) Description 01/10/2024 Home Care Visit [facility] Health [address] [place] [address] Arlette Briones, MARAH TELEPHONE ENCOUNTER Social History [...] or pharmacy Sometimes 01/09/[address] [facility] Utilities Answer Date Recorded In [...] often do you attend chur ch or jewish services? More than 4 times per year [...] 0 01/06/2024 [facility] [place] of Occupat ional Health - Occupational [...] on file Legal Sex Male 3:25 PM VALANCE CUTTER Gender Identity Not on file Sexual Orientation Not on file documented as of this encounter Plan of Treatment Upcoming Encounters Date Type Department Care Team (Latest Contact Info) Description 10/23/2024 10:00 AM VALANCE CUTTER Hospital Encounter [facility] Operating Room [address] [place] [address] [place] [address] [id number] 10/23/2024 10:00 AM VALANCE CUTTER - 10/23/2024 1:00 PM VALANCE CUTTER Surgery [facility] Operating Room [address] [place] [address] [place] [address] [address] ARTHROPLASTY TOTAL KNEE LEFT Scheduled Procedures Name Priority Associated Diagnoses Date/Ti me ARTHROPLASTY TOTAL KNEE left knee osteoarthritis 10/23/2024 10:00 AM VALANCE CUTTER ESOPHAGOGASTRODUODENOSCOPY Dysphagia, unspecified type documented as of this encounter Visit Diagnoses Not on filedocumented in this encounter Care Teams Education Assistant Relationship Specialty Start Date End Date Wolfgang Serrano MD PCP - General Family Medicine 05/05/23 08/02/24 Unknown, Notinfile 03/12/22 [place] [address] [place] [address] 03/12/22 Chuy Enriquez MD [address] [place] [address] Consulting Physician Pulmonary Disease 10/13/23 Luis Felipe Cedillo MD [address] [place] [address] Consulting Physician Gastroenterology 10/13/23 Marlene Thornton MD [address] [place] [address] Surgeon Vascular Surgery 11/10/23 documented as of this encounter
--- OUTSIDE RECORDS SUMMARY | 2024-10-11 03:01 | XMS_ITS | Encounter Summary ---
Author Organization [facility] Healthcare Address [address] [place] [address] Care Team Providers Care Program Associate Name Role Phone Wolfgang Serrano MD Primary Care Provider [phone] Unknown, Notinfile Unavailable Unavailable Santino Funk MD Unavailable Chuy Enriquez MD Unavailable Luis Felipe Cedillo MD Unavailable [phone] Marlene Thornton MD Unavailable Reason for Visit * Auth/Cert (Routine) Specialty Diagnoses / Procedures Referred By Contac t Referred To Contact Referral ID Status Reason Start Date Expiration Date Visits Re quested Visits Authorized [id number] 1 60 Encounter Details Date Type Department Care Team (Latest Contact Info) Description 01/14/2024 12:00 PM CDT Home Care Visit [facility] Health [address] [address] [address] [place] [address] Anjelica Agrawal, DASHBOARD DEVELOPER DASHBOARD DEVELOPER INITIAL EVALUATION Social History Tobacco Use Types [...] materials from doctor or pharmacy Sometimes 01/09/2024 [facility] Utilities Answer Date Recorded In the past 12 months has e [employer], gas, oil, or water company threatened to [...] Recorded Patient Health Questionnaire-2 Score 0 01/06/2024 [facility] [place] of Occupat ional Health - Occupational [...] on file Legal Sex Male 3:25 PM PROOFER PREPRESS Gender Identity Not on file Sexual Orientation [...] PM CDT Reason for today's visit: initial DASHBOARD DEVELOPER evaluation Discuss plan of care with patient and patient caregiver. Discharge planning: DC when goals are met or max potential is reached Plan for next visit: therex, education, HEP development documented in this encounter Plan of Treatment Upcoming Encounters Date Type Department Care Team (Latest Contact Info) Description 10/23/2024 10:00 AM PROOFER PREPRESS Hospital Encounter [facility] Operating Room [address] [place] [address] [place] [address] [address] 10/23/2024 10:00 AM PROOFER PREPRESS - 10/23/2024 1:00 PM PROOFER PREPRESS Surgery [facility] Operating Room [address] [place] [address] [place] [address] [address] ARTHROPLASTY TOTAL KNEE LEFT Scheduled Procedures Name Priority Associated Diagnoses Date/Ti me ARTHROPLASTY TOTAL KNEE left knee osteoarthritis 10/23/2024 10:00 AM PROOFER PREPRESS ESOPHAGOGASTRODUODENOSCOPY Dysphagia, unspecified type documented as of this encounter Visit Diagnoses Not on filedocumented in this encounter Home Health Visit - Care Plan Visit Details Visit Type -DASHBOARD DEVELOPER Initial Eval uation Discipline -Speech Language Pathology Problems Problem Description Start Date Status Goals Interventions Homebound Status Disciplines: Skilled Disciplines Patient's homebound status 01/09/2024 Active 1 goal linked to scheduled/docume nted intervention 1 goal intervention scheduled/documen ana in this visit Monitor patient's vital signs every home health visit Disciplines: SN, PT, OT, DASHBOARD DEVELOPER, IMPROVEMENT SPECIALIST, Skilled Disciplines Monitor patient's vital signs [...] visit during episode of care Description: Home pipe line repairer to measure vital signs during every home [...] , his daughter is in town from [place] for a few days. Patient currently requires assistance with all ADLs, is independent with medication and financial institution treasurer. 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 Currently patient enjoys watching TV, especially sports. documented in this encounter Care Teams Program Associate Relationship Specialty Start Date End Date Wolfgang Serrano MD PCP - General Family Medicine 05/05/23 08/02/24 Unknown, Notinfile 03/12/22 [place] [address] [address] 03/12/22 Chuy Enriquez MD [address] [facility] [address] [place] [address] Consulting Physician Pulmonary Disease 10/13/23 Luis Felipe Cedillo MD [address] [facility] [address] [address] Consulting Physician Gastroenterology 10/13/23 Marlene Thornton MD [address] [facility] [address] [address] Surgeon Vascular Surgery 11/10/23 documented as of this encounter
--- OUTSIDE RECORDS SUMMARY | 2024-10-11 03:01 | XMS_ITS | Encounter Summary ---
Author Organization [facility] Healthcare Address [address] [place] [address] Care Team Providers Care Cash Poster Name Role Phone Wolfgang Serrano MD Primary Care Provider Unknown, Notinfile Unavailable Unavailable Santino Funk MD Unavailable Chuy Enriquez MD Unavailable Luis Felipe Cedillo MD Unavailable [phone] Marlene Thornton MD Unavailable [phone] Reason for Visit * Auth/Cert (Routine) Specialty Diagnoses / Procedures Referred By Contac t Referred To Contact Referral ID Status Reason Start Date Expiration Date Visits Re quested Visits Authorized [id number] 1 60 Encounter Details Date Type Department Care Team (Late st Contact Info) Description 01/12/2024 10:30 AM CDT Home Care Visit [facility] Health [address] [place] [address] João Gardner, DEPUTY CLERK OF SUPERIOR COURT DRUM CLEANER INITIAL EVAL Social History Tobacco Use Types [...] In the past 12 months has e [employer], gas, oil, or water company threatened to [...] Questionnaire-2 Score 0 01/06/2024 [facility] [place] of Occupat ional Health - Occupational Stress [...] on file Legal Sex Male 3:25 PM SENIOR ANALYST PROGRAMMER Gender Identity Not on file Sexual Orientation Not on file documented as of this encounter Miscellaneous Notes * Home Health Visit Narrative - João Moscoso MSW - 01/12/2024 10:20 AM CDT QUAN PSYCHOSOCIAL SBAR Visit with pt and family completed on: 01/12/24 SITUATION: Pt is a 78 year old male admitted to home health due to s/p admission to [facility] from 12/07/2023 - 12/15/2023 secondary to acute CVA. 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 Supportive family, pt positive and motivated to get better --HCPOA in place no. working on it now with an civil attorney Orientation: alert and oriented, pt shares he has some short term memory loss Mood/affect/coping skills: denies --Anxiety/depression: denies Social Connections --Frequency of Communication with Friends and Family: lives with spouse, all kids live out of state --Belong to mu-ism, clubs or organizations: not at this time Pt finds meaning/pleasure: used to enjoy going to mu-ism Safety concerns/barriers: 2 steps to enter/exit front and garage steps, no handrails Smoke alarms/fire extinguisher in home yes Pain: Pt denies RECOMMENDATIONS/SOCIAL WORK PLANS: get family or friend *DRUM CLEANER provided local listing of private duty agencies *DRUM CLEANER to make referral fpr expedited services to [facility] [phone] for paid in-home care services, ERB, MOW and medication dispenser *DRUM CLEANER phoned the [facility] Assist Aid and Attendant program [phone] for paid in home care coordinator services and after pt was assessed they determined that pt would not qualify due to having too much income *DRUM CLEANER provided resource for respite services: [facility] offers a respite program which reimburses thegerman hospitalgiver up to $200 a month for respite services [phone] DRUM CLEANER assessed patient emotional wellbeing, mental health, strengths, resources, and unmet needs. MSWprovided emotional support and encouragement to patient and family through conversation, active listening, and supportive presence. Patient and family verbalized understanding of all resources discussed. Patient and family had no other needs or concerns. DRUM CLEANER provided contact information and encouraged patient and family to contact DRUM CLEANER as needs arise. DRUM CLEANER will coordinate care with Home Care Team. documented in this encounter Plan of Treatment Upcoming Encounters Date Type Department Care Team (Latest Contact Info) Description 10/23/2024 10:00 AM SENIOR ANALYST PROGRAMMER Hospital Encounter [facility] Operating Room [address] [place] [address] [place] [address] [address] [address] 10/23/2024 10:00 AM SENIOR ANALYST PROGRAMMER - 10/23/2024 1:00 PM SENIOR ANALYST PROGRAMMER Surgery [facility] Operating Room [address] [place] [address] [place] [address] [address] ARTHROPLASTY TOTAL KNEE LEFT Scheduled Procedures Name Priority Associated Diagnoses Date/Ti me ARTHROPLASTY TOTAL KNEE left knee osteoarthritis 10/23/2024 10:00 AM SENIOR ANALYST PROGRAMMER ESOPHAGOGASTRODUODENOSCOPY Dysphagia, unspecified type documented as of this encounter Visit Diagnoses Not on filedocumented in this encounter Home Health Visit - Care Plan Visit Details Visit Type -DRUM CLEANER Initial Eval uation Discipline -Medical Social Work Problems Problem Description Start Date Status Goals Interve ntions DRUM CLEANER Resource Needs Disciplines: Social Work Deficit related to resources. 01/12/2024 Resolved on 01/12/2024 1 goal linked to scheduled/documen ana intervention 1 goal intervention scheduled/documen ana in this visit DRUM CLEANER Emotional Support Needs Disciplines: Social Work Deficit related to emotional support. 01/12/2024 Resolved on 01/12/2024 1 goal linked to scheduled/documen ana intervention 1 goal intervention scheduled/documen ana in this visit Goals Goal Associated Problem Outcome Goal Met? Visit Notes Understanding of available resources Description: Resource needs met as evidenced by patient/family/ caregiver verbalizes understanding of available resources and ways to obtain these. DRUM CLEANER Resource Needs Completed Yes Increase emotional support Description: Patient/ family/ caregiver understands impact of illness as evidenced by verbalizing acceptance of the disease process. DRUM CLEANER Emotional Support Needs Completed Yes Interventions Intervention Associated Problem/Goal Status Variance Visit Notes Provide assistance with identifying appropriate community resources Description: Provide assistance with identifying appropriate community resources Problem:DRUM CLEANER Resource Needs Goal:Understanding of available resources Completed DRUM CLEANER PSYCHOSOCIAL SBAR Visit with pt and family completed on: 01/12/24 SITUATION: Pt is a 78 year old male admitted to home health due to s/p admission to [facility] from 12/07/2023 - 12/15/2023 secondary to acute CVA. 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 working on it now with an civil attorney Orientation: alert and oriented, pt shares he has some short term memory loss Mood/affect/coping skills: denies --Anxiety/depression: denies Social Connections --Frequency of Communication with Friends and Family: lives with spouse, all kids live out of state --Belong to mu-ism, clubs or organizations: not at this time Pt finds meaning/pleasure: used to enjoy going to mu-ism Safety concerns/barriers: 2 steps to enter/exit front and garage steps, no handrails Smoke alarms/fire extinguisher in home yes Pain: Pt denies RECOMMENDATIONS/SOCIAL WORK PLANS: get family or friend *DRUM CLEANER provided local listing of private duty agencies *DRUM CLEANER to make referral fpr expedited services to [facility] [phone] for paid in-home care services, ERB, MOW and medication dispenser *DRUM CLEANER phoned the [facility] Assist Aid and Attendant program [phone] for paid in home care coordinator services and after pt was assessed they determined that pt would not qualify due to having too much income *DRUM CLEANER provided resource for respite services: [facility] offers a respite program which reimburses the caregiver up to $200 a month for respite services [phone] DRUM CLEANER assessed patient emotional wellbeing, mental health, strengths, resources, and unmet needs. DRUM CLEANER provided emotional support and encouragement to patient and family through conversation, active listening, and supportive presence. Patient and family verbalized understanding of all resources discussed. Patient and family had no other needs or concerns. DRUM CLEANER provided contact information and encouraged patient and family to contact DRUM CLEANER as needs arise. DRUM CLEANER will coordinate care with Home Care Team. Provide Emotional Support Description: Provide emotional support Problem:DRUM CLEANER Emotional Support Needs Goal:Increase emotional support Completed DRUM CLEANER provided emotional support and encouragement to patient through conversation, active listening and supportive presence documented in this encounter Care Teams Cash Poster Relationship Specialty Start Date End Date Wolfgang Serrano MD PCP - General Family Medicine 05/05/23 08/02/24 Unknown, Notinfile 03/12/22 [place] [address] [facility] [address] [place] [address] 03/12/22 Chuy Enriquez MD [address] [facility] [address] [place] [address] Consulting Physician Pulmonary Disease 10/13/23 Luis Felipe Cedillo MD [address] [facility] [address] [address] Consulting Physician Gastroenterology 10/13/23 Marlene Thornton MD [address] [facility] [address] [address] Surgeon Vascular Surgery 11/10/23 documented as of this encounter
--- OUTSIDE RECORDS SUMMARY | 2024-10-11 03:02 | XMS_ITS | Encounter Summary ---
Author Organization [facility] Healthcare Address [address] [place] [address] Care Team Providers Care Parking Inspector Name Role Phone Wolfgang Serrano MD Primary Care Provider [phone] Unknown, Notinfile Unavailable Unavailable Santino Funk MD Unavailable Chuy Enriquez MD Unavailable [phone] Luis Felipe Cedillo MD Unavailable [phone] Marlene Thornton MD Unavailable Reason for Visit * Auth/Cert (Routine) Specialty Diagnoses / Procedures Referred By Contac t Referred To Contact Referral ID Status Reason Start Date Expiration Date Visits Re quested Visits Authorized [id number] 1 60 Encounter Details Date Type Department Care Team (Latest Contact Info) Description 01/09/2024 12:30 PM CDT Home Care Visit [facility] [address] [address] [address] [place] [address] Aravind Duran, PT PT OASIS START OF [...] often do you attend chur ch or baptist services? More than 4 times per year [...] Recorded Patient Health Questionnaire-2 Score 0 01/06/2024 [facility] [place] of Occupat ional Health - Occupational Stress [...] on file Legal Sex Male 3:25 PM RADIO DISC JOCKEY Gender Identity Not on file Sexual Orientation [...] 78 year old male s/p admission to [facility] from 12/07/2023 - 12/15/2023 (8 [...] may benefit from the following additional disciplines: BUNDLE BREAKER to address speech, memory, swallowing. HEALTH UNIT COORDINATOR referral to discuss home lighting adviser / community resources. Supply/HME/equipment needs or issues: [...] Response 1. PT OASIS - noted in [facility] includes hx falls within 3 months. According [...] 78 year old male s/p admission to [facility] from 12/07/2023 - 12/15/2023 (8 [...] may benefit from the following additional disciplines: BUNDLE BREAKER to address speech, memory, swallowing. HEALTH UNIT COORDINATOR referral to discuss home lighting adviser / community resources. ROBERSON TU seconds with [...] (Latest Contact Info) Description 10/23/2024 10:00 AM RADIO DISC JOCKEY Hospital Encounter [facility] Operating Room [address] [place] [address] [place] [address] [address] 10/23/2024 10:00 AM RADIO DISC JOCKEY - 10/23/2024 1:00 PM RADIO DISC JOCKEY Surgery [facility] Operating Room [address] [place] [address] [place] [address] [address] ARTHROPLASTY TOTAL KNEE LEFT Scheduled Procedures Name Priority Associated Diagnoses Date/Ti me ARTHROPLASTY TOTAL KNEE left knee osteoarthritis 10/23/2024 10:00 AM RADIO DISC JOCKEY ESOPHAGOGASTRODUODENOSCOPY Dysphagia, unspecified type documented as of [...] home health visit Disciplines: SN, PT, OT, BUNDLE BREAKER, GI PHYSICIAN, Skilled Disciplines Monitor patient's vital signs every [...] visit during episode of care Description: Home rest room maid to measure vital signs during every home [...] instructions. documented in this encounter Care Teams Parking Inspector Relationship Specialty Start Date End Date Wolfgang Serrano MD PCP - General Family Medicine 05/05/23 08/02/24 Unknown, Notinfile 03/12/22 [place] [address] [facility] [address] [place] [address] 03/12/22 Chuy Enriquez MD [address] [facility] [address] [place] [address] Consulting Physician Pulmonary Disease 10/13/23 Luis Felipe Cedillo MD [address] [facility] [address], [place] [address] Consulting Physician Gastroenterology 10/13/23 Marlene Thornton MD [address] [facility] [address] [address] Surgeon Vascular Surgery 11/10/23 documented as of this encounter
--- OUTSIDE RECORDS SUMMARY | 2024-10-11 03:02 | XMS_ITS | Encounter Summary ---
Author Organization [facility] Healthcare Address [address] [place] [address] Care Team Providers Care Wildlife Ecology Professor Name Role Phone Wolfgang Serrano MD Primary Care Provider [phone] Unknown, Notinfile Unavailable Unavailable Santino Funk MD Unavailable Chuy Enriquez MD Unavailable Luis Felipe Cedillo MD Unavailable [phone] Marlene Thornton MD Unavailable Reason for Visit * Auth/Cert (Routine) Specialty Diagnoses / Procedures Referred By Contac t Referred To Contact Referral ID Status Reason Start Date Expiration Date Visits Re quested Visits Authorized [id number] 1 60 Encounter Details Date Type Department Care Team (Late st Contact Info) Description 01/09/2024 Home Care Visit [facility] [address] [place] [address] Aravind Duran PT CASE COMMUNICATION Social History [...] from doctor or pharmacy Sometimes 01/09/2024 [facility] Utilities Answer Date Recorded In the past [...] Patient Health Questionnaire-2 Score 0 01/06/2024 [facility] [place] of Occupat ional Health - Occupational Stress [...] file Legal Sex Male 3:25 PM PLANT HEALTH CARE TECHNICIAN Gender Identity Not on file Sexual Orientation Not on file documented as of this encounter Plan of Treatment Upcoming Encounters Date Type Department Care Team (Latest Contact Info) Description 10/23/2024 10:00 AM PLANT HEALTH CARE TECHNICIAN Hospital Encounter [facility] Operating Room [address] [place] [address] [place] [address] [id number] 10/23/2024 10:00 AM PLANT HEALTH CARE TECHNICIAN - 10/23/2024 1:00 PM PLANT HEALTH CARE TECHNICIAN Surgery [facility] Operating Room [address] [place] [address] [place] [address] [address] ARTHROPLASTY TOTAL KNEE LEFT Scheduled Procedures Name Priority Associated Diagnoses Date/Ti me ARTHROPLASTY TOTAL KNEE left knee osteoarthritis 10/23/2024 10:00 AM PLANT HEALTH CARE TECHNICIAN ESOPHAGOGASTRODUODENOSCOPY Dysphagia, unspecified type documented as of this encounter Visit Diagnoses Not on filedocumented in this encounter Care Teams Wildlife Ecology Professor Relationship Specialty Start Date End Date Wolfgang Serrano MD PCP - General Family Medicine 05/05/23 08/02/24 Unknown, Notinfile 03/12/22 [place] [address] [place] [address] 03/12/22 Chuy Enriquez MD [address] [place] [address] Consulting Physician Pulmonary Disease 10/13/23 Luis Felipe Cedillo MD [address] [place] [address] Consulting Physician Gastroenterology 10/13/23 Marlene Thornton MD [address] [place] [address] Surgeon Vascular Surgery 11/10/23 documented as of this encounter
--- OUTSIDE RECORDS SUMMARY | 2024-10-11 03:02 | XMS_ITS | Encounter Summary ---
Author Organization [facility] Healthcare Address [address] [place] [address] Care Team Providers Care Outpatient Facility Physical Therapist Name Role Phone Wolfgang Serrano MD Primary Care Provider [phone] Unknown, Notinfile Unavailable Unavailable Santino Funk MD Unavailable Chuy Enriquez MD Unavailable Luis Felipe Cedillo MD Unavailable Marlene Thornton MD Unavailable Encounter Details Date Type Department Care Team (Late st Contact Info) Description 01/06/2024 Telephone [facility] [address] [address] [address] [place] [address] Nigel Quintanilla RN Social History Tobacco Use Types Packs/Day Years Used Date Smoking Tobacco: Former Cigarettes 1 966 - 1966 Smokeless Tobacco: Never Alcohol Use Standard Drinks/Week Comments Yes 1 (1 standard drink = 0.6 oz pur e alcohol) [facility] Utilities Answer Date Recorded In the past 12 months has [employer], gas, oil, or water company threatened [...] file Legal Sex Male 3:25 PM ADMINISTRATIVE OPERATIONS COORDINATOR Gender Identity Not on file Sexual Orientation Not on file documented as of this encounter Miscellaneous Notes * Telephone Encounter - Nigel Quintanilla RN - 01/06/2024 10:20 AM CDT [facility] Home Health contacted PCP office [phone] and message left on ext 3 nurse line inquiring ifDr. Serrano will follow for referral received from [facility], await return call. = Received return call at 1025am from pcp office and per Dr. Maggie Ontiverso will follow for [facility] services documented in this encounter Plan of Treatment Upcoming Encounters Date Type Department Care Team (Latest Contact Info) Description 10/23/2024 10:00 AM [email or web address] Hospital Encounter [facility] Operating Room [address] [place] [address] rGey Dykes MD [address] [place] [address] 10/23/2024 10:00 AM ADMINISTRATIVE OPERATIONS COORDINATOR - 10/23/2024 1:00 PM ADMINISTRATIVE OPERATIONS COORDINATOR Surgery [facility] Operating Room [address] [place] [address] [place] [address] [facility] [address] [place] [address] ARTHROPLASTY TOTAL KNEE LEFT Scheduled Procedures Name Priority Associated Diagnoses Date/Ti me ARTHROPLASTY TOTAL KNEE left knee osteoarthritis 10/23/2024 10:00 AM ADMINISTRATIVE OPERATIONS COORDINATOR ESOPHAGOGASTRODUODENOSCOPY Dysphagia, unspecified type documented as of this encounter Visit Diagnoses Not on filedocumented in this encounter Care Teams Outpatient Facility Physical Therapist Relationship Specialty Start Date End Date Wolfgang Serrano MD PCP - General Family Medicine 05/05/23 08/02/24 Unknown, Notinfile 03/12/22 [place] [address] [facility] [address] [place] [address] 03/12/22 Chuy Enriquez MD [address] [place] [address] Consulting Physician Pulmonary Disease 10/13/23 Luis Felipe Cedillo MD [address] [place] [address] Consulting Physician Gastroenterology 10/13/23 Marlene Thornton MD [address] [place] [address] Surgeon Vascular Surgery 11/10/23 documented as of this encounter
--- OUTSIDE RECORDS SUMMARY | 2024-10-11 03:02 | XMS_ITS | Encounter Summary ---
Author Organization [facility] Healthcare Address [address] [place] [address] Care Team Providers Care Umbrella Tipper Name Role Phone Wolfgang Serrano MD Primary Care Provider Unknown, Notinfile Unavailable Unavailable Santino Funk MD Unavailable [phone] Chuy Enriquez MD Unavailable [phone] Luis Felipe Cedillo MD Unavailable [phone] Marlene Thornton MD Unavailable [phone] Encounter Details Date Type Department Care Team (Late st Contact Info) Description 01/09/2024 Plan of Care Documentation [facility] [address] [address] [address] [place] [address] Social History Tobacco Use Types [...] from doctor or pharmacy Sometimes 01/09/2024 [facility] Utilities Answer Date [...] 0 01/06/2024 [facility] [place] of Occupat ional Health - Occupational Stress [...] on file Legal Sex Male 3:25 PM CHARGE ACCOUNT CLERK Gender Identity Not on file Sexual Orientation Not on file documented as of this encounter Miscellaneous Notes * Home Health Plan of Care Certification Statement - Sravani Chawla OT - 01/17/2024 11:58 AM CDT I certify that the above stated patient is homebound and has a need for intermittent penitentiary, physical therapy and/or speech or occupational therapy services for their current diagnosis(es) as outlined in the initial plan of care. The patient is under my care, and I have authorized serviceson this plan of care and will periodically review the plan. The patient had a [id number] encounter with Becky Montana MD on 12/29/2023 and the encounter was related to the primary reason for home health care. documented in this encounter Plan of Treatment Upcoming Encounters Date Type Department Care Team (Latest Contact Info) Description 10/23/2024 10:00 AM CHARGE ACCOUNT CLERK Hospital Encounter [facility] Operating Room [address] [place] [address] [place] [address] [address] 10/23/2024 10:00 AM CHARGE ACCOUNT CLERK - 10/23/2024 1:00 PM CHARGE ACCOUNT CLERK Surgery [facility] Operating Room [address] [place] [address] [place] [address] [id number] ARTHROPLASTY TOTAL KNEE LEFT Scheduled Procedures Name Priority Associated Diagnoses Date/Ti me ARTHROPLASTY TOTAL KNEE left knee osteoarthritis 10/23/2024 10:00 AM CHARGE ACCOUNT CLERK ESOPHAGOGASTRODUODENOSCOPY Dysphagia, unspecified type documented as of this encounter Visit Diagnoses Not on filedocumented in this encounter Care Teams Umbrella Tipper Relationship Specialty Start Date End Date Wolfgang Serrano MD PCP - General Family Medicine 05/05/23 08/02/24 Unknown, Notinfile 03/12/22 [place] [address] [facility] [address] [place] [address] 03/12/22 Chuy Enriquez MD [address] [facility] [address] [place] [address] Consulting Physician Pulmonary Disease 10/13/23 Luis Felipe Cedillo MD [address] [facility] [address] [place] [address] Consulting Physician Gastroenterology 10/13/23 Marlene Thornton MD [address] [facility] [address] [place] [address] Surgeon Vascular Surgery 11/10/23 documented as of this encounter
--- OUTSIDE RECORDS SUMMARY | 2024-10-11 03:02 | XMS_ITS | Encounter Summary ---
Author Organization [facility] Healthcare Address [address] [place] [address] Care Team Providers Care Centralized Traffic Control Operator Name Role Phone Wolfgang Serrano MD Primary Care Provider [phone] Unknown, Notinfile Unavailable Unavailable Santino Funk MD Unavailable Chuy Enriquez MD Unavailable [phone] Luis Felipe Cedillo MD Unavailable Marlene Thornton MD Unavailable Reason for Referral * Home Health (Routine) - Pending Review Specialty Diagnoses / Procedures Referred By Contac t Referred To Contact Home Health Services / Home Health and Hospice Diagnoses Acute CVA (cerebrovascular accident) (HCC) Becky Montana MD [id number] [facility] [address] [place] [address] Phone: tel: fax: [facility] [address] [place] [address] Referral ID Status Reason Start Date Expiration Date Visits Requested Visits Authorized [id number] Pending Review Specialty Services Required 12/29/2023 01/27/2025 [...] Expiration Date Visits Re quested Visits Authorized [id number] 1 1 Encounter Details Date Type Department Care Team (Late st Contact Info) Description 12/15/2023 2:14 PM EXPELLER WORKER - 01/07/2024 10:10 AM CDT Hospital Encounter [facility] [address] [place] [address] Becky [place] MD [id number] [address] Gisel Newby MD [id number] [place] [address] Acute CVA (cerebrovascular accident) (HCC) [I63.9] (Primary Dx) Discharge Disposition: Discharge to home, home health skilled care Social History Tobacco Use Types Packs/Day Years Used Date Smoking Tobacco: Former Cigarettes 1966 Smokeless Tobacco: Never Alcohol Use Standard Drinks/Week Comments Yes 1 (1 standard drink = 0.6 oz pur e alcohol) [facility] Utilities Answer Date [...] Questionnaire-2 Score 0 01/06/2024 [facility] [place] [facility] - Occupational Stress [...] on file Legal Sex Male 3:25 PM 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 Gender Identity Not on file Sexual [...] cm (5' 10 ) 12/15/2023 2:51 PM EXPELLER WORKER Body Mass Index 30.98 12/15/2023 2:51 PM EXPELLER WORKER documented in this encounter Discharge Summaries * Becky Montana MD - 01/06/2024 10:51 AM CDT DISCHARGE SUMMARY [facility]IENT [facility] Admission Date: 12/15/2023 Discharge Date: 01/06/2024 Attending Physician: Admitting Provider: Becky Montana MD Discharge Provider: Becky Montana MD Primary Care Physician at Discharge: Wolfgang Serrano MD [phone] Discharge Diagnoses: 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 [...] Lives with who works. Daughter visiting from [place] but leaving tomorrow. 2 steps to enter. [...] dress:MOD LB dress: MAX Footwear: MAX Toileting:TOTAL MUSIC SPECIALIST Cognition: Mild/moderate cognitive deficits in short-term memory, insight, and problem solving/reasoning. Left visual inattention. MUSIC SPECIALIST Communication: Mild dysarthria MUSIC SPECIALIST Swallowing: Tolerating regular diet with thin liquids [...] supplements 1-2x/day if appetite is poor. Call [phone] to speak with a dietitian about any [...] presence of a cast or brace which [id number] degree flexion at the knee?: No Does [...] regular basis in the home?: Yes The [id number] evaluation was performed on: 01/03/2024 DME services provided by: [facility] Follow up appointments: Future Appointments Date Time Provider Department Center 01/11/2024 10:45 AM Jossie Montalvo PA [facility] OS 301 Specialty 01/24/2024 9:45 AM Chuy Enriquez MD [facility] PLM 315 PSA 02/15/2024 12:45 PM Hesham Lamb PA DERM [facility] Dermatology 11/17/2024 8:00 AM DE OLIVEIRA BA [facility] CAM ROOM B [facility] CAM8D BA 11/17/2024 8:45 AM Marlene Thornton MD [facility] CAM 8B BA Contact Information for Follow-ups [facility] Home Care Services Specialty: Home Health and Hospice [facility] [place] [address] Next Steps: Follow up Instructions: start of [...] Specialty: Family Medicine Relationship: PCP - [facility] [address] [place] [id number] Next Steps: Follow up on 01/13/2024 Instructions: 01/13/24 @ 2pm Please fax d/c summary to [phone] upon d/c George Sepulveda MD Specialty: Orthopedic Surgery [id number] [place] [id number] Next Steps: Follow up on 01/11/2024 Instructions: 01/10@ 10:45am for rt knee inj, had left knee done 12/28 in hospital Total time spent in care and discharge of patient: 33 minutes CC: PCP documented in this encounter Discharge Instructions * Discharge Instructions* Becky Montana MD - 01/06/2024 10:52 AM CDT NO DRIVING * Discharge Instr - Diet* Kyra Larose - 12/16/2023 3:18 PM EXPELLER WORKER Recommend to eat a generally healthy [...] supplements 1-2x/day if appetite is poor. Call [phone] to speak with a dietitian about any diet related concerns. Additional resources are available online from the Academy of [employer] and Dietetics at www.eatright.org LLER WORKER documented in this encounter Medications at Time [...] fracture of condyle of left femur (CMS/HCC) ([facility]) Vertigo Vision changes Visual disturbance hx [...] / SEX: 78 y.o. / male ROOM: [place] [address] : 1945 DATE: 01/06/24 TIME IN: 1315 [...] due to total right knee replacement (CMS/HCC) ([facility]) Hamstring tendinitis of right thigh Quadriceps [...] Infrarenal abdominal aortic aneurysm (AAA) without rupture ([facility]) Acute CVA (cerebrovascular accident) ([facility]) Moderate malnutrition (CMS/[facility]) Primary osteoarthritis of left knee Past Medical History: Diagnosis Date Acute gastric ulcer without hemorrhage or perforation Ulcer, gastric, acute - (Added by TW Conv) Alzheimer's dementia ([facility]) Asthma Back pain Cataract Closed fracture of left tibial plateau with delayed healing Closed fracture of right tibial plateau with delayed healing Closed nondisplaced osteochondral fracture of left patella with delayed healing Closed osteochondral fracture of patella, right, with delayed healing, subsequent encounter Clotting disorder ([facility]) ([facility]) Complex tear of medial meniscus of left knee as current injury Complex tear of medial meniscus of right knee as current injury Cramps of lower extremity Diverticulitis of colon Easy bruisability Fatigue Frequent urination Gastroesophageal reflux disease GERD Hypothyroidism Incontinence of urine Muscle weakness Osteoarthritis Osteoarthritis Peptic ulcer Peptic ulcer disease Seizures ([facility]) 1997 last seizure in 1997 SOB (shortness of breath) on exertion Subchondral insufficiency fracture of condyle of left femur ([facility]/HCC) ([facility]) Vertigo Vision changes Visual disturbance hx [...] AND NOTIFIED Physical Therapist / Physical Therapist Nailer Operator, NAME: Shannan, OF PATIENT'S LOCATION AND FUNCTIONAL [...] abduction/adduction and scapular elevation. HAND DOMINANCE: Right NATIONAL ACCOUNT DIRECTOR STRENGTH (RIGHT): TRIAL 1: 60 TRIAL 2: 65 TRIAL 3: 71 AVERAGE: 74 POUND(S) NATIONAL ACCOUNT DIRECTOR STRENGTH (LEFT): LATERAL PINCH (RIGHT): TRIAL 1: [...] Krystle Cruz OT 01/06/24 * Kay Aviles, THERMOSPRAY OPERATOR - 01/06/2024 12:28 PM CDT Physical Therapy [...] subsequent encounter Clotting disorder (CMS/HCC) ([facility]) Complex tear of medial meniscus of left knee as current injury Complex tear of medial meniscus of right knee as current injury Cramps of lower extremity Diverticulitis of colon Easy bruisability Fatigue Frequent urination Gastroesophageal reflux disease GERD Hypothyroidism Incontinence of urine Muscle weakness Osteoarthritis Osteoarthritis Peptic ulcer Peptic ulcer disease Seizures ([facility]) 1997 last seizure in 1997 SOB (shortness of breath) on exertion Subchondral insufficiency fracture of condyle of left femur (CMS/HCC) ([facility]) Vertigo Vision changes Visual disturbance hx [...] established deficits and goals. * Paresh Prieto, MUSIC SPECIALIST - 01/06/2024 10:59 AM CDT SPEECH-LANGUAGE PATHOLOGY DISCHARGE SUMMARY Patient's Name: Gunjan Gtz Jr. : 1945 Age: 78 y.o. Time In: 9:10 Time Out: 9:49 Patient Active Problem List Diagnosis Primary osteoarthritis of both knees Subchondral insufficiency fracture of condyle of left femur (CMS/HCC) ([facility]) Closed fracture of left tibial plateau [...] due to total right knee replacement (CMS/HCC) ([facility]) Hamstring tendinitis of right thigh Quadriceps [...] Infrarenal abdominal aortic aneurysm (AAA) without rupture ([facility]) Acute CVA (cerebrovascular accident) ([facility]) Moderate malnutrition (CMS/[facility]) Primary osteoarthritis of left knee Past Medical History: Diagnosis Date Acute gastric ulcer without hemorrhage or perforation Ulcer, gastric, acute - (Added by TW Conv) Alzheimer's dementia ([facility]) Asthma Back pain Cataract Closed fracture of left tibial plateau with delayed healing Closed fracture of right tibial plateau with delayed healing Closed nondisplaced osteochondral fracture of left patella with delayed healing Closed osteochondral fracture of patella, right, with delayed healing, subsequent encounter Clotting disorder ([facility]/HCC) ([facility]) Complex tear of medial meniscus of left knee as current injury Complex tear of medial meniscus of right knee as current injury Cramps of lower extremity Diverticulitis of colon Easy bruisability Fatigue Frequent urination Gastroesophageal reflux disease GERD Hypothyroidism Incontinence of urine Muscle weakness Osteoarthritis Osteoarthritis Peptic ulcer Peptic ulcer disease Seizures ([facility]) 1997 last seizure in 1997 SOB (shortness of breath) on exertion Subchondral insufficiency fracture of condyle of left femur ([facility]) ([facility]) Vertigo Vision changes Visual disturbance hx [...] baseline for patient. SWALLOWING/DYSPHAGIA: Swallow assessed by MUSIC SPECIALIST. Regular consistency diet/thin liquids recommended. Patient continues [...] Occupational Therapy NOTE TYPE: OT TREATMENT ([facility]ED[facility]IDE SESSION) Patient's Name: Gunjan Gtz Jr. Age / Sex: 78 y.o. / male Room: [place] [address] : 1945 Date: 01/06/24 Time In: 1029 [...] due to total right knee replacement (CMS/HCC) ([facility]) Hamstring tendinitis of right thigh Quadriceps [...] Infrarenal abdominal aortic aneurysm (AAA) without rupture ([facility]) Acute CVA (cerebrovascular accident) ([facility]) Moderate malnutrition (CMS/[facility]) Primary osteoarthritis of left knee Past Medical History: Diagnosis Date Acute gastric ulcer without hemorrhage or perforation Ulcer, gastric, acute - (Added by TW Conv) Alzheimer's dementia ([facility]) Asthma Back pain Cataract Closed fracture of left tibial plateau with delayed healing Closed fracture of right tibial plateau with delayed healing Closed nondisplaced osteochondral fracture of left patella with delayed healing Closed osteochondral fracture of patella, right, with delayed healing, subsequent encounter Clotting disorder ([facility]) ([facility]) Complex tear of medial meniscus of left knee as current injury Complex tear of medial meniscus of right knee as current injury Cramps of lower extremity Diverticulitis of colon Easy bruisability Fatigue Frequent urination Gastroesophageal reflux disease GERD Hypothyroidism Incontinence of urine Muscle weakness Osteoarthritis Osteoarthritis Peptic ulcer Peptic ulcer disease Seizures ([facility]) 1997 last seizure in 1997 SOB (shortness of breath) on exertion Subchondral insufficiency fracture of condyle of left femur ([facility]/HCC) ([facility]) Vertigo Vision changes Visual disturbance hx [...] and notified Physical Therapist / Physical Therapist Nailer Operator, name: Shannan, of patient's location and functional [...] - (Added by TW Conv) Alzheimer's dementia ([facility]) Asthma Back pain Cataract Closed fracture [...] Osteoarthritis Peptic ulcer Peptic ulcer disease Seizures ([facility]) 1997 last seizure in 1997 SOB [...] / SEX: 78 y.o. / male ROOM: [place] [id number] : 1945 DATE: 01/05/24 TIME IN: 1331 TIME OUT: 1415 Patient Active Problem List Diagnosis Primary osteoarthritis of both knees Subchondral insufficiency fracture of condyle of left femur (CMS/HCC) ([facility]) Closed fracture of left tibial plateau [...] due to total right knee replacement (CMS/HCC) ([facility]) Hamstring tendinitis of right thigh Quadriceps [...] with delayed healing, subsequent encounter Clotting disorder (CMS/[facility]) ([facility]) Complex tear of medial meniscus of left knee as current injury Complex tear of medial meniscus of right knee as current injury Cramps of lower extremity Diverticulitis of colon Easy bruisability Fatigue Frequent urination Gastroesophageal reflux disease GERD Hypothyroidism Incontinence of urine Muscle weakness Osteoarthritis Osteoarthritis Peptic ulcer Peptic ulcer disease Seizures ([facility]) 1997 last seizure in 1997 SOB (shortness of breath) on exertion Subchondral insufficiency fracture of condyle of left femur (CMS/[facility]) ([facility]) Vertigo Vision changes Visual disturbance hx [...] AND NOTIFIED Physical Therapist / Physical Therapist Nailer Operator, NAME: Shannan, OF PATIENT'S LOCATION AND FUNCTIONAL [...] Occupational Therapy NOTE TYPE: OT TREATMENT ([facility] S[facility]) Patient's Name: Gunjan Gtz Jr. Age / Sex: 78 y.o. / male Room: [place] [address] : 1945 Date: 01/05/24 Time In: 1016 Time Out: 1107 Patient Active Problem List Diagnosis Primary osteoarthritis of both knees Subchondral insufficiency fracture of condyle of left femur (CMS/HCC) ([facility]) Closed fracture of left tibial plateau [...] Skin lesion of breast Edema Intermittent claudication ([facility]) Iron deficiency anemia Peripheral vascular disease ([facility]) Pain due to total right knee replacement (CMS/HCC) ([facility]) Hamstring tendinitis of right thigh Quadriceps [...] Infrarenal abdominal aortic aneurysm (AAA) without rupture ([facility]) Acute CVA (cerebrovascular accident) ([facility]) Moderate malnutrition (CMS/[facility]) Primary osteoarthritis of left knee Past Medical History: Diagnosis Date Acute gastric ulcer without hemorrhage or perforation Ulcer, gastric, acute - (Added by TW Conv) Alzheimer's dementia ([facility]) Asthma Back pain Cataract Closed fracture of left tibial plateau with delayed healing Closed fracture of right tibial plateau with delayed healing Closed nondisplaced osteochondral fracture of left patella with delayed healing Closed osteochondral fracture of patella, right, with delayed healing, subsequent encounter Clotting disorder (CMS/HCC) ([facility]) Complex tear of medial meniscus of left knee as current injury Complex tear of medial meniscus of right knee as current injury Cramps of lower extremity Diverticulitis of colon Easy bruisability Fatigue Frequent urination Gastroesophageal reflux disease GERD Hypothyroidism Incontinence of urine Muscle weakness Osteoarthritis Osteoarthritis Peptic ulcer Peptic ulcer disease Seizures ([facility]) 1997 last seizure in 1997 SOB (shortness of breath) on exertion Subchondral insufficiency fracture of condyle of left femur (CMS/HCC) ([facility]) Vertigo Vision changes Visual disturbance hx [...] and notified Physical Therapist / Physical Therapist Nailer Operator, name: Marcia, of patient's location and functional [...] Krystle Cruz, OT 01/05/24 * Mai, Madie, THERMOSPRAY OPERATOR - 01/05/2024 11:20 AM CDT Physical Therapy [...] dress:MOD LB dress: MAX Footwear: MAX Toileting:TOTAL MUSIC SPECIALIST Cognition: Mild/moderate cognitive deficits in short-term memory, insight, and problem solving/reasoning. Left visual inattention. MUSIC SPECIALIST Communication: Mild dysarthria MUSIC SPECIALIST Swallowing: Tolerating regular diet with thin liquids [...] Becky Montana MD, 50 mg at 01/03/24 [id number] ASSESSMENT/PLAN: MEDICAL PLAN OF CARE: 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 Impaired mobility, ADLs, transfers, gait, balance, strength, endurance, speech, cognition, swallow PT OT eval MUSIC SPECIALIST eval Continue aspirin 81mg, rosuvastatin 40mg Ophtho [...] Case Management; Social Work; Therapeutic Recreation; SpeechTherapy; Satellite Manager Frequency and duration of therapies expect to [...] Expected intensity and frequency of Speech Therapy (MUSIC SPECIALIST): 1 hour per day per day over [...] I can be reached from 7am-7pm through [employer]. Hospitalist computer education professor from 7pm-7am * Paresh Prieto SLP - 01/05/2024 9:59 AM CDT SPEECH LANGUAGE PATHOLOGY PROGRESS NOTE Patient's Name: Gunjan Gtz Jr. : 1945 Age: 78 y.o. Time In: 9:34 Time Out: 10:01 Patient Active Problem List Diagnosis Primary osteoarthritis of both knees Subchondral insufficiency fracture of condyle of left femur (CMS/HCC) ([facility]) Closed fracture of left tibial plateau [...] Skin lesion of breast Edema Intermittent claudication ([facility]) Iron deficiency anemia Peripheral vascular disease (HCC) Pain due to total right knee replacement (CMS/HCC) ([facility]) Hamstring tendinitis of right thigh Quadriceps [...] Infrarenal abdominal aortic aneurysm (AAA) without rupture ([facility]) Acute CVA (cerebrovascular accident) ([facility]) Moderate malnutrition (CMS/[facility]) Primary osteoarthritis of left knee Past Medical History: Diagnosis Date Acute gastric ulcer without hemorrhage or perforation Ulcer, gastric, acute - (Added by TW Conv) Alzheimer's dementia ([facility]) Asthma Back pain Cataract Closed fracture of left tibial plateau with delayed healing Closed fracture of right tibial plateau with delayed healing Closed nondisplaced osteochondral fracture of left patella with delayed healing Closed osteochondral fracture of patella, right, with delayed healing, subsequent encounter Clotting disorder (CMS/HCC) ([facility]) Complex tear of medial meniscus of left knee as current injury Complex tear of medial meniscus of right knee as current injury Cramps of lower extremity Diverticulitis of colon Easy bruisability Fatigue Frequent urination Gastroesophageal reflux disease GERD Hypothyroidism Incontinence of urine Muscle weakness Osteoarthritis Osteoarthritis Peptic ulcer Peptic ulcer disease Seizures ([facility]) 1997 last seizure in 1997 SOB (shortness of breath) on exertion Subchondral insufficiency fracture of condyle of left femur (CMS/HCC) ([facility]) Vertigo Vision changes Visual disturbance hx [...] Problems (from Speech Therapy) Active Problems Problem: MUSIC SPECIALIST [facility] Start Date: 12/16/23 Goal Start Date Expected End Date End Date [facility] 1 12/16/23 01/06/24 -- Goal Details: Patient to perform short term memory tasks using compensatory strategies with 80% accuracy. Goal Start Date Expected End Date End Date [facility] 2 12/16/23 01/06/24 -- Goal Details: Patient to perform functional problem solving/reasoning tasks with 80% accuracy. Goal Start Date Expected End Date End Date [facility] 3 12/16/23 01/06/24 -- Goal Details: Patient to attend to left visual field 80% of the time given 2-3 verbal prompts. Goal Start Date Expected End Date End Date [facility] 4 12/16/23 01/06/24 -- Goal Details: Patient's [...] fracture of condyle of left femur (CMS/HCC) ([facility]) Vertigo Vision changes Visual disturbance hx [...] / SEX: 78 y.o. / male ROOM: [place] [address] : 1945 DATE: 01/04/24 TIME IN: 1345 TIME OUT: 1408 Patient Active Problem List Diagnosis Primary osteoarthritis of both knees Subchondral insufficiency fracture of condyle of left femur (CMS/HCC) ([facility]) Closed fracture of left tibial plateau [...] Skin lesion of breast Edema Intermittent claudication ([facility]) Iron deficiency anemia Peripheral vascular disease ([facility]) Pain due to total right knee replacement (CMS/HCC) ([facility]) Hamstring tendinitis of right thigh Quadriceps [...] Infrarenal abdominal aortic aneurysm (AAA) without rupture ([facility]) Acute CVA (cerebrovascular accident) ([facility]) Moderate malnutrition (CMS/HCC) Primary osteoarthritis of left knee Past Medical History: Diagnosis Date Acute gastric ulcer without hemorrhage or perforation Ulcer, gastric, acute - (Added by TW Conv) Alzheimer's dementia ([facility]) Asthma Back pain Cataract Closed fracture of left tibial plateau with delayed healing Closed fracture of right tibial plateau with delayed healing Closed nondisplaced osteochondral fracture of left patella with delayed healing Closed osteochondral fracture of patella, right, with delayed healing, subsequent encounter Clotting disorder (CMS/HCC) ([facility]) Complex tear of medial meniscus of left knee as current injury Complex tear of medial meniscus of right knee as current injury Cramps of lower extremity Diverticulitis of colon Easy bruisability Fatigue Frequent urination Gastroesophageal reflux disease GERD Hypothyroidism Incontinence of urine Muscle weakness Osteoarthritis Osteoarthritis Peptic ulcer Peptic ulcer disease Seizures ([facility]) 1997 last seizure in 1997 SOB [...] AND NOTIFIED Physical Therapist / Physical Therapist Nailer Operator, NAME: Shannan, OF PATIENT'S LOCATION AND FUNCTIONAL [...] Rosalia Marinelli OT 01/04/24 * Ella Carter, MUSIC SPECIALIST - 01/04/2024 1:22 PM CDT SPEECH LANGUAGE [...] subsequent encounter Clotting disorder (CMS/HCC) ([facility]) Complex tear of medial meniscus of left knee as current injury Complex tear of medial meniscus of right knee as current injury Cramps of lower extremity Diverticulitis of colon Easy bruisability Fatigue Frequent urination Gastroesophageal reflux disease GERD Hypothyroidism Incontinence of urine Muscle weakness Osteoarthritis Osteoarthritis Peptic ulcer Peptic ulcer disease Seizures ([facility]) 1997 last seizure in 1997 SOB (shortness of breath) on exertion Subchondral insufficiency fracture of condyle of left femur (CMS/HCC) ([facility]) Vertigo Vision changes Visual disturbance hx [...] Problems (from Speech Therapy) Active Problems Problem: [facility] Start Date: 12/16/23 Goal Start Date Expected End Date End Date [facility] 1 12/16/23 01/06/24 -- Goal Details: Patient to perform short term memory tasks using compensatory strategies with 80% accuracy. Goal Start Date Expected End Date End Date [facility] 2 12/16/23 01/06/24 -- Goal Details: Patient to perform functional problem solving/reasoning tasks with 80% accuracy. Goal Start Date Expected End Date End Date [facility] 3 12/16/23 01/06/24 -- Goal Details: Patient to attend to left visual field 80% of the time given 2-3 verbal prompts. Goal Start Date Expected End Date End Date MUSIC SPECIALIST [facility] - [facility] 4 12/16/23 01/06/24 -- [...] / SEX: 78 y.o. / male ROOM: [place] [address] : 1945 DATE: 01/04/24 Multi-Disciplinary Problems (from Occupational Therapy) Active Problems Problem: OT [facility] Start Date: 12/16/23 Goal Start Date Expected End Date End Date OT [facility] - [facility] 1 12/16/23 12/23/23 -- Goal Details: Patient will complete basic ADL routine including: bathing in shower, LE dressing, footwear, UB dressing, and grooming tasks with min assist and appropriate compensatory strategies. Goal Start Date Expected End Date End Date OT [facility] - [facility] 2 12/16/23 12/23/23 -- Goal Details: Patient will complete simulated car transfer using appropriate device with min assist Goal Start Date Expected End Date End Date OT G - [facility] 3 12/16/23 12/23/23 -- Goal Details: Patient will complete toileting and toilet transfer with min assist and appropriate device. Goal Start Date Expected End Date End Date OT [facility] - [facility] 4 12/16/23 12/23/23 -- Goal Details: Patient will complete functional/meaningful task in standing for 3-5 minutes with minassist for balance one time. Goal Start Date Expected End Date End Date OT [facility] 5 12/16/23 12/23/23 -- Goal Details: Patient will complete HEP (LUE SROM/RUE AROM) to improve BUE ROM/strength/endurance and ADL participation with min verbal cues 1 time. Goal Start Date Expected End Date End Date OT [facility] 6 12/16/23 12/23/23 -- Goal Details: Patient family/caregiver will attend one OT session and be aware of discharge needs/plans Goal Start Date Expected End Date End Date OT [facility] 7 12/16/23 12/23/23 -- Goal [...] dress:MOD LB dress: MAX Footwear: MAX Toileting:TOTAL MUSIC SPECIALIST Cognition: Mild/moderate cognitive deficits in short-term memory, insight, and problem solving/reasoning. Left visual inattention. MUSIC SPECIALIST Communication: Mild dysarthria MUSIC SPECIALIST Swallowing: Tolerating regular diet with thin liquids [...] endurance, speech, cognition, swallow PT OT eval MUSIC SPECIALIST eval Continue aspirin 81mg, rosuvastatin 40mg Ophtho [...] Case Management; Social Work; Therapeutic Recreation; SpeechTherapy; Satellite Manager Frequency and duration of therapies expect to [...] Expected intensity and frequency of Speech Therapy (MUSIC SPECIALIST): 1 hour per day per day over 5-7 days per week for the duration of length of stay FUNCTIONAL CHANGE: DISCHARGE PLANNING: Expected Discharge Date: Saturday 01/06 with home health PT OT Equipment: TBD Family Training: SW to set up Education: Follow up Appointments: PCP 1-2 weeks Becky Montana MD Physical Medicine and Rehabilitation I can be reached from 7am-7pm through [employer] chat. Hospitalist computer education professor from 7pm-7am * Teena Cyr - 01/04/2024 11:33 AM CDT NUTRITION ASSESSMENT Nutrition Status: Patient meets criteria for moderate social/environmental malnutrition, reference ASPEN guidelines. Present on Admission: Yes REASON FOR ASSESSMENT: Follow Up Encounter Date: 01/04/24 11:33 AM Admission Date: 12/15/2023 LOS: 20 days HPI: Patient is a 78 y.o. male with history of GERD, PVD presented to [facility] on 12/07 with sudden left sided weakness. [...] - (Added by TW Conv) Alzheimer's dementia ([facility]) Asthma Back pain Cataract Closed fracture of left tibial plateau with delayed healing Closed fracture of right tibial plateau with delayed healing Closed nondisplaced osteochondral fracture of left patella with delayed healing Closed osteochondral fracture of patella, right, with delayed healing, subsequent encounter Clotting disorder ([facility]) ([facility]) Complex tear of medial meniscus of left knee as current injury Complex tear of medial meniscus of right knee as current injury Cramps of lower extremity Diverticulitis of colon Easy bruisability Fatigue Frequent urination Gastroesophageal reflux disease GERD Hypothyroidism Incontinence of urine Muscle weakness Osteoarthritis Osteoarthritis Peptic ulcer Peptic ulcer disease Seizures ([facility]) 1997 last seizure in 1997 SOB (shortness of breath) on exertion Subchondral insufficiency fracture of condyle of left femur (CMS/[facility]) ([facility]) Vertigo Vision changes Visual disturbance hx [...] BUN SERUM mg/dL 12 CREATININE mg/dL 1.22 [id number] mL/min/1.73 m2 60 CALCIUM mg/dL 8.9 ALBUMIN [...] depth pinch but not ample Muscle Loss [place] Muscle: Slight depression Clavicle [...] supplements 1-2x/day if appetite is poor. Call [phone] to speak with a dietitian about any diet related concerns. Additional resources are available online from the Academy of [employer] and Dietetics at www.eatright.org Nutrition Follow-Up : 01/11/24 Teena Cyr MS, RD, LD * Rosalia Marinelli, OT - 01/04/2024 9:45 AM CDT Occupational Therapy NOTE TYPE: OT TREATMENT ([facility] S[facility]) Patient's Name: Gunjan Gtz Jr. Age / Sex: 78 y.o. / male Room: [place] [address] : 1945 Date: 01/04/24 Time In: 0945 Time Out: 1100 Patient Active Problem List Diagnosis Primary osteoarthritis of both knees Subchondral insufficiency fracture of condyle of left femur (CMS/HCC) ([facility]) Closed fracture of left tibial plateau [...] Skin lesion of breast Edema Intermittent claudication ([facility]) Iron deficiency anemia Peripheral vascular disease (HCC) Pain due to total right knee replacement (CMS/HCC) ([facility]) Hamstring tendinitis of right thigh Quadriceps weakness Idiopathic peripheral neuropathy Abnormality of gait and mobility Hx of total knee replacement, right Neuropathy (CMS/[facility]) 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 Biceps tendinitis of left upper extremity Tear of left glenoid labrum Coffee ground emesis Upper GI bleed Acquired hypothyroidism Acute blood loss anemia Lung nodule Nocturnal cough Hiatal hernia Infrarenal abdominal aortic aneurysm (AAA) without rupture ([facility]) Acute CVA (cerebrovascular accident) ([facility]) Moderate malnutrition (CMS/[facility]) Primary osteoarthritis of left knee Past Medical History: Diagnosis Date Acute gastric ulcer without hemorrhage or perforation Ulcer, gastric, acute - (Added by TW Conv) Alzheimer's dementia ([facility]) Asthma Back pain Cataract Closed fracture of left tibial plateau with delayed healing Closed fracture of right tibial plateau with delayed healing Closed nondisplaced osteochondral fracture of left patella with delayed healing Closed osteochondral fracture of patella, right, with delayed healing, subsequent encounter Clotting disorder (CMS/[facility]) ([facility]) Complex tear of medial meniscus of left knee as current injury Complex tear of medial meniscus of right knee as current injury Cramps of lower extremity Diverticulitis of colon Easy bruisability Fatigue Frequent urination Gastroesophageal reflux disease GERD Hypothyroidism Incontinence of urine Muscle weakness Osteoarthritis Osteoarthritis Peptic ulcer Peptic ulcer disease Seizures ([facility]) 1997 last seizure in 1997 SOB (shortness of breath) on exertion Subchondral insufficiency fracture of condyle of left femur ([facility]) ([facility]) Vertigo Vision changes Visual disturbance hx [...] and notified Physical Therapist / Physical Therapist Nailer Operator, name: Poly, of patient's location and functional [...] Rosalia Marinelli OT 01/04/24 * Paresh Prieto, MUSIC SPECIALIST - 01/03/2024 3:02 PM CDT SPEECH LANGUAGE [...] Skin lesion of breast Edema Intermittent claudication ([facility]) Iron deficiency anemia Peripheral vascular disease ([facility]) Pain due to total right knee replacement ([facility]/HCC) ([facility]) Hamstring tendinitis of right thigh Quadriceps [...] Infrarenal abdominal aortic aneurysm (AAA) without rupture ([facility]) Acute CVA (cerebrovascular accident) ([facility]) Moderate malnutrition ([facility]) Primary osteoarthritis of left knee Past Medical History: Diagnosis Date Acute gastric ulcer without hemorrhage or perforation Ulcer, gastric, acute - (Added by TW Conv) Alzheimer's dementia ([facility]) Asthma Back pain Cataract Closed fracture of left tibial plateau with delayed healing Closed fracture of right tibial plateau with delayed healing Closed nondisplaced osteochondral fracture of left patella with delayed healing Closed osteochondral fracture of patella, right, with delayed healing, subsequent encounter Clotting disorder ([facility]/HCC) ([facility]) Complex tear of medial meniscus of left knee as current injury Complex tear of medial meniscus of right knee as current injury Cramps of lower extremity Diverticulitis of colon Easy bruisability Fatigue Frequent urination Gastroesophageal reflux disease GERD Hypothyroidism Incontinence of urine Muscle weakness Osteoarthritis Osteoarthritis Peptic ulcer Peptic ulcer disease Seizures ([facility]) 1997 last seizure in 1997 SOB (shortness of breath) on exertion Subchondral insufficiency fracture of condyle of left femur ([facility]/HCC) ([facility]) Vertigo Vision changes Visual disturbance hx [...] Problems (from Speech Therapy) Active Problems Problem: MUSIC SPECIALIST [facility] Start Date: 12/16/23 Goal Start Date Expected End Date End Date [facility] - [facility] 1 12/16/23 01/06/24 -- Goal Details: Patient to perform short term memory tasks using compensatory strategies with 80% accuracy. Goal Start Date Expected End Date End Date [facility] - [facility] 2 12/16/23 01/06/24 -- Goal Details: Patient to perform functional problem solving/reasoning tasks with 80% accuracy. Goal Start Date Expected End Date End Date [facility] - [facility] 3 12/16/23 01/06/24 -- Goal Details: Patient to attend to left visual field 80% of the time given 2-3 verbal prompts. Goal Start Date Expected End Date End Date [facility] - [facility] 4 12/16/23 01/06/24 -- Goal Details: Patient's [...] / SEX: 78 y.o. / male ROOM: [place] [address] : 1945 DATE: 01/03/24 TIME IN: 1332 TIME OUT: 1405 Patient Active Problem List Diagnosis Primary osteoarthritis of both knees Subchondral insufficiency fracture of condyle of left femur (CMS/HCC) ([facility]) Closed fracture of left tibial plateau [...] Skin lesion of breast Edema Intermittent claudication ([facility]) Iron deficiency anemia Peripheral vascular disease ([facility]) Pain due to total right knee replacement (CMS/HCC) ([facility]) Hamstring tendinitis of right thigh Quadriceps [...] Infrarenal abdominal aortic aneurysm (AAA) without rupture ([facility]) Acute CVA (cerebrovascular accident) ([facility]) Moderate malnutrition (CMS/HCC) Primary osteoarthritis of left knee Past Medical History: Diagnosis Date Acute gastric ulcer without hemorrhage or perforation Ulcer, gastric, acute - (Added by TW Conv) Alzheimer's dementia ([facility]) Asthma Back pain Cataract Closed fracture of left tibial plateau with delayed healing Closed fracture of right tibial plateau with delayed healing Closed nondisplaced osteochondral fracture of left patella with delayed healing Closed osteochondral fracture of patella, right, with delayed healing, subsequent encounter Clotting disorder (CMS/HCC) ([facility]) Complex tear of medial meniscus of left knee as current injury Complex tear of medial meniscus of right knee as current injury Cramps of lower extremity Diverticulitis of colon Easy bruisability Fatigue Frequent urination Gastroesophageal reflux disease GERD Hypothyroidism Incontinence of urine Muscle weakness Osteoarthritis Osteoarthritis Peptic ulcer Peptic ulcer disease Seizures ([facility]) 1997 last seizure in 1997 SOB (shortness of breath) on exertion Subchondral insufficiency fracture of condyle of left femur (CMS/HCC) ([facility]) Vertigo Vision changes Visual disturbance hx [...] AND NOTIFIED Physical Therapist / Physical Therapist Nailer Operator, NAME: Marcia, OF PATIENT'S LOCATION AND FUNCTIONAL [...] Rosalia Marinelli OT 01/03/24 * Madie Oneill THERMOSPRAY OPERATOR - 01/03/2024 12:32 PM CDT Physical Therapy PT PROGRESS NOTE Gunjanshauna Gtz Jr. 78 y.o. 1945 Past Medical History: Diagnosis Date Acute gastric ulcer without hemorrhage or perforation Ulcer, gastric, acute - (Added by TW Conv) Alzheimer's dementia ([facility]) Asthma Back pain Cataract Closed fracture of left tibial plateau with delayed healing Closed fracture of right tibial plateau with delayed healing Closed nondisplaced osteochondral fracture of left patella with delayed healing Closed osteochondral fracture of patella, right, with delayed healing, subsequent encounter Clotting disorder (CMS/HCC) ([facility]) Complex tear of medial meniscus of left knee as current injury Complex tear of medial meniscus of right knee as current injury Cramps of lower extremity Diverticulitis of colon Easy bruisability Fatigue Frequent urination Gastroesophageal reflux disease GERD Hypothyroidism Incontinence of urine Muscle weakness Osteoarthritis Osteoarthritis Peptic ulcer Peptic ulcer disease Seizures ([facility]) 1997 last seizure in 1997 SOB (shortness of breath) on exertion Subchondral insufficiency fracture of condyle of left femur (CMS/HCC) ([facility]) Vertigo Vision changes Visual disturbance hx [...] with MOD assist. Second trial uses leg sales and operations trainee and MINassist. Supine to sit with v/c [...] dress:MOD LB dress: MAX Footwear: MAX Toileting:TOTAL MUSIC SPECIALIST Cognition: Mild/moderate cognitive deficits in short-term memory, insight, and problem solving/reasoning. Left visual inattention. MUSIC SPECIALIST Communication: Mild dysarthria MUSIC SPECIALIST Swallowing: Tolerating regular diet with thin liquids [...] endurance, speech, cognition, swallow PT OT eval MUSIC SPECIALIST eval Continue aspirin 81mg, rosuvastatin 40mg Ophtho [...] Case Management; Social Work; Therapeutic Recreation; SpeechTherapy; Satellite Manager Frequency and duration of therapies expect to [...] Expected intensity and frequency of Speech Therapy (MUSIC SPECIALIST): 1 hour per day per day over [...] I can be reached from 7am-7pm through [employer] chat. Hospitalist computer education professor from 7pm-7am * Rosalia Marinelli OT - 01/03/2024 10:00 AM CDT Occupational Therapy NOTE TYPE: OT TREATMENT ([facility]) Patient's Name: Gunajn Gtz Jr. Age / Sex: 78 y.o. / male Room: [place] [address] : 1945 Date: 01/03/24 Time In: 1000 Time Out: 1100 Patient Active Problem List Diagnosis Primary osteoarthritis of both knees Subchondral insufficiency fracture of condyle of left femur (CMS/HCC) ([facility]) Closed fracture of left tibial plateau [...] Skin lesion of breast Edema Intermittent claudication ([facility]) Iron deficiency anemia Peripheral vascular disease (HCC) Pain due to total right knee replacement (CMS/HCC) ([facility]) Hamstring tendinitis of right thigh Quadriceps [...] Infrarenal abdominal aortic aneurysm (AAA) without rupture ([facility]) Acute CVA (cerebrovascular accident) ([facility]) Moderate malnutrition (CMS/[facility]) Primary osteoarthritis of left knee Past Medical History: Diagnosis Date Acute gastric ulcer without hemorrhage or perforation Ulcer, gastric, acute - (Added by TW Conv) Alzheimer's dementia ([facility]) Asthma Back pain Cataract Closed fracture of left tibial plateau with delayed healing Closed fracture of right tibial plateau with delayed healing Closed nondisplaced osteochondral fracture of left patella with delayed healing Closed osteochondral fracture of patella, right, with delayed healing, subsequent encounter Clotting disorder (CMS/HCC) ([facility]) Complex tear of medial meniscus of left knee as current injury Complex tear of medial meniscus of right knee as current injury Cramps of lower extremity Diverticulitis of colon Easy bruisability Fatigue Frequent urination Gastroesophageal reflux disease GERD Hypothyroidism Incontinence of urine Muscle weakness Osteoarthritis Osteoarthritis Peptic ulcer Peptic ulcer disease Seizures ([facility]) 1997 last seizure in 1997 SOB (shortness of breath) on exertion Subchondral insufficiency fracture of condyle of left femur (CMS/HCC) ([facility]) Vertigo Vision changes Visual disturbance hx [...] and notified Physical Therapist / Physical Therapist Nailer Operator, name: Marcia, of patient's location and functional [...] OT educated on shower safety (use of millwright helper socks for traction, use of tub transfer [...] Rosalia Marinelli OT 01/03/24 * Paresh Prieto, MUSIC SPECIALIST - 01/03/2024 9:40 AM CDT SPEECH LANGUAGE [...] with delayed healing, subsequent encounter Clotting disorder ([facility]) ([facility]) Complex tear of medial meniscus of left knee as current injury Complex tear of medial meniscus of right knee as current injury Cramps of lower extremity Diverticulitis of colon Easy bruisability Fatigue Frequent urination Gastroesophageal reflux disease GERD Hypothyroidism Incontinence of urine Muscle weakness Osteoarthritis Osteoarthritis Peptic ulcer Peptic ulcer disease Seizures ([facility]) 1997 last seizure in 1997 SOB (shortness of breath) on exertion Subchondral insufficiency fracture of condyle of left femur (CMS/HCC) ([facility]) Vertigo Vision changes Visual disturbance hx [...] Problems (from Speech Therapy) Active Problems Problem: MUSIC SPECIALIST [facility] Start Date: 12/16/23 Goal Start Date Expected End Date End Date [facility] - [facility] 1 12/16/23 01/06/24 -- Goal Details: Patient to perform short term memory tasks using compensatory strategies with 80% accuracy. Goal Start Date Expected End Date End Date [facility] - [facility] 2 12/16/23 01/06/24 -- Goal Details: Patient to perform functional problem solving/reasoning tasks with 80% accuracy. Goal Start Date Expected End Date End Date [facility] - [facility] 3 12/16/23 01/06/24 -- Goal Details: Patient to attend to left visual field 80% of the time given 2-3 verbal prompts. Goal Start Date Expected End Date End Date MUSIC SPECIALIST - [facility] 4 12/16/23 01/06/24 -- Goal [...] / SEX: 78 y.o. / male ROOM: [place] [address] : 1945 DATE: 01/01/24 TIME IN: 14:03 TIME OUT: 14:33 Patient Active Problem List Diagnosis Primary osteoarthritis of both knees Subchondral insufficiency fracture of condyle of left femur (CMS/HCC) ([facility]) Closed fracture of left tibial plateau [...] Infrarenal abdominal aortic aneurysm (AAA) without rupture ([facility]) Acute CVA (cerebrovascular accident) ([facility]) Moderate malnutrition (CMS/HCC) Primary osteoarthritis of left knee Past Medical History: Diagnosis Date Acute gastric ulcer without hemorrhage or perforation Ulcer, gastric, acute - (Added by TW Conv) Alzheimer's dementia ([facility]) Asthma Back pain Cataract Closed fracture of left tibial plateau with delayed healing Closed fracture of right tibial plateau with delayed healing Closed nondisplaced osteochondral fracture of left patella with delayed healing Closed osteochondral fracture of patella, right, with delayed healing, subsequent encounter Clotting disorder (CMS/HCC) ([facility]) Complex tear of medial meniscus of left knee as current injury Complex tear of medial meniscus of right knee as current injury Cramps of lower extremity Diverticulitis of colon Easy bruisability Fatigue Frequent urination Gastroesophageal reflux disease GERD Hypothyroidism Incontinence of urine Muscle weakness Osteoarthritis Osteoarthritis Peptic ulcer Peptic ulcer disease Seizures ([facility]) 1997 last seizure in 1997 SOB (shortness of breath) on exertion Subchondral insufficiency fracture of condyle of left femur (CMS/HCC) ([facility]) Vertigo Vision changes Visual disturbance hx [...] SESSION: Yes COMPLETED PATIENT HANDOFF AND NOTIFIED STATISTICAL SECRETARY / RN, NAME: Gela, OF PATIENT'S LOCATION [...] was presented with a 7-day weekly pill urban planner, organized into 4 sections: Morning, Noon, Evening and Bedtime. Patient was provided with 5 simulated medications with various instructions on each pill bottle. Patient instructed to use the instructions on each pill bottle to fill in the urban planner for the entire week. Patient was [...] GOALS ANGI Guido 01/01/24 * Kate Raymundo, THERMOSPRAY OPERATOR - 01/01/2024 9:15 AM CDT PT PROGRESS [...] due to total right knee replacement (CMS/HCC) ([facility]) Hamstring tendinitis of right thigh Quadriceps [...] Infrarenal abdominal aortic aneurysm (AAA) without rupture ([facility]) Acute CVA (cerebrovascular accident) ([facility]) Moderate malnutrition (CMS/HCC) Primary osteoarthritis of left [...] due to total right knee replacement (CMS/HCC) ([facility]) Hamstring tendinitis of right thigh Quadriceps [...] Infrarenal abdominal aortic aneurysm (AAA) without rupture ([facility]) Acute CVA (cerebrovascular accident) ([facility]) Moderate malnutrition (CMS/HCC) Primary osteoarthritis of left [...] / SEX: 78 y.o. / male ROOM: [place] [address] : 1945 DATE: 12/31/23 TIME IN: 1330 TIME OUT: 1411 Patient Active Problem List Diagnosis Primary osteoarthritis of both knees Subchondral insufficiency fracture of condyle of left femur (CMS/HCC) ([facility]) Closed fracture of left tibial plateau [...] due to total right knee replacement (CMS/HCC) ([facility]) Hamstring tendinitis of right thigh Quadriceps [...] Infrarenal abdominal aortic aneurysm (AAA) without rupture ([facility]) Acute CVA (cerebrovascular accident) ([facility]) Moderate malnutrition (CMS/HCC) Primary osteoarthritis of left knee Past Medical History: Diagnosis Date Acute gastric ulcer without hemorrhage or perforation Ulcer, gastric, acute - (Added by TW Conv) Alzheimer's dementia ([facility]) Asthma Back pain Cataract Closed fracture of left tibial plateau with delayed healing Closed fracture of right tibial plateau with delayed healing Closed nondisplaced osteochondral fracture of left patella with delayed healing Closed osteochondral fracture of patella, right, with delayed healing, subsequent encounter Clotting disorder (CMS/[facility]) ([facility]) Complex tear of medial meniscus of left knee as current injury Complex tear of medial meniscus of right knee as current injury Cramps of lower extremity Diverticulitis of colon Easy bruisability Fatigue Frequent urination Gastroesophageal reflux disease GERD Hypothyroidism Incontinence of urine Muscle weakness Osteoarthritis Osteoarthritis Peptic ulcer Peptic ulcer disease Seizures ([facility]) 1997 last seizure in 1997 SOB (shortness of breath) on exertion Subchondral insufficiency fracture of condyle of left femur ([facility]) ([facility]) Vertigo Vision changes Visual disturbance hx [...] AND NOTIFIED Physical Therapist / Physical Therapist Nailer Operator, NAME: Marcia, OF PATIENT'S LOCATION AND FUNCTIONAL [...] Rosalia Marinelli OT 12/31/23 * Paresh Prieto, MUSIC SPECIALIST - 12/31/2023 1:17 PM CDT SPEECH LANGUAGE PATHOLOGY PROGRESS NOTE Patient's Name: Gunjan Gtz JrMason : 1945 Age: 78 y.o. Time In: 13:05 Time Out: 13:30 Patient Active Problem List Diagnosis Primary osteoarthritis of both knees Subchondral insufficiency fracture of condyle of left femur (CMS/HCC) ([facility]) Closed fracture of left tibial plateau [...] Skin lesion of breast Edema Intermittent claudication ([facility]) Iron deficiency anemia Peripheral vascular disease ([facility]) Pain due to total right knee replacement (CMS/HCC) ([facility]) Hamstring tendinitis of right thigh Quadriceps [...] Infrarenal abdominal aortic aneurysm (AAA) without rupture ([facility]) Acute CVA (cerebrovascular accident) ([facility]) Moderate malnutrition (CMS/[facility]) Primary osteoarthritis of left knee Past Medical History: Diagnosis Date Acute gastric ulcer without hemorrhage or perforation Ulcer, gastric, acute - (Added by TW Conv) Alzheimer's dementia ([facility]) Asthma Back pain Cataract Closed fracture of left tibial plateau with delayed healing Closed fracture of right tibial plateau with delayed healing Closed nondisplaced osteochondral fracture of left patella with delayed healing Closed osteochondral fracture of patella, right, with delayed healing, subsequent encounter Clotting disorder (CMS/HCC) ([facility]) Complex tear of medial meniscus of left knee as current injury Complex tear of medial meniscus of right knee as current injury Cramps of lower extremity Diverticulitis of colon Easy bruisability Fatigue Frequent urination Gastroesophageal reflux disease GERD Hypothyroidism Incontinence of urine Muscle weakness Osteoarthritis Osteoarthritis Peptic ulcer Peptic ulcer disease Seizures ([facility]) 1997 last seizure in 1997 SOB (shortness of breath) on exertion Subchondral insufficiency fracture of condyle of left femur (CMS/HCC) ([facility]) Vertigo Vision changes Visual disturbance hx [...] Problems (from Speech Therapy) Active Problems Problem: MUSIC SPECIALIST [facility] Start Date: 12/16/23 Goal Start Date Expected End Date End Date [facility] 1 12/16/23 01/06/24 -- Goal Details: Patient to perform short term memory tasks using compensatory strategies with 80% accuracy. Goal Start Date Expected End Date End Date [facility] 2 12/16/23 01/06/24 -- Goal Details: Patient to perform functional problem solving/reasoning tasks with 80% accuracy. Goal Start Date Expected End Date End Date [facility] 3 12/16/23 01/06/24 -- Goal Details: Patient to attend to left visual field 80% of the time given 2-3 verbal prompts. Goal Start Date Expected End Date End Date [facility] 4 12/16/23 01/06/24 -- Goal Details: Patient's [...] dress:MOD LB dress: MAX Footwear: MAX Toileting:TOTAL MUSIC SPECIALIST Cognition: Mild/moderate cognitive deficits in short-term memory, insight, and problem solving/reasoning. Left visual inattention. MUSIC SPECIALIST Communication: Mild dysarthria MUSIC SPECIALIST Swallowing: Tolerating regular diet with thin liquids [...] holding onto chair with min assist. Ambulation: [id number] d 10'x1, 15'x1 with min assist. Patient with decreased gertrudis, step to gait pattern, decreased left heel strike and push off, narrow SHANA, downward gaze, slight flexed posture at hips, decreased leftknee stability with fatigue. Stairs: one step performed 2x: ascending with one handrail and mod assist the first time and min assist the second time. Descending both times with min assist of 1 and CGassist of 1 with decreased left knee stability [...] Becky Montana MD, 10 mg at 12/31/23 0750 donepeziL (ARICEPT) tablet 10 mg, 10 mg, [...] endurance, speech, cognition, swallow PT OT eval MUSIC SPECIALIST eval Continue aspirin 81mg, rosuvastatin 40mg Ophtho [...] Case Management; Social Work; Therapeutic Recreation; SpeechTherapy; Satellite Manager Frequency and duration of therapies expect to [...] Expected intensity and frequency of Speech Therapy (MUSIC SPECIALIST): 1 hour per day per day over [...] I can be reached from 7am-7pm through [employer] chat. Hospitalist computer education professor from 7pm-7am * Madie Oneill, THERMOSPRAY OPERATOR - 12/31/2023 11:08 AM CDT Physical Therapy [...] / Sex: 78 y.o. / male Room: [place] [id number] : 1945 Date: 12/31/23 Time In: 1005 Time Out: 1100 Patient Active Problem List Diagnosis Primary osteoarthritis of both knees Subchondral insufficiency fracture of condyle of left femur (CMS/[facility]) ([facility]) Closed fracture of left tibial plateau [...] Skin lesion of breast Edema Intermittent claudication ([facility]) Iron deficiency anemia Peripheral vascular disease ([facility]) Pain due to total right knee replacement (CMS/HCC) ([facility]) Hamstring tendinitis of right thigh Quadriceps weakness Idiopathic peripheral neuropathy Abnormality of gait and mobility Hx of total knee replacement, right Neuropathy ([facility]) 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 Biceps tendinitis of left upper extremity Tear of left glenoid labrum Coffee ground emesis Upper GI bleed Acquired hypothyroidism Acute blood loss anemia Lung nodule Nocturnal cough Hiatal hernia Infrarenal abdominal aortic aneurysm (AAA) without rupture ([facility]) Acute CVA (cerebrovascular accident) ([facility]) Moderate malnutrition ([facility]) Primary osteoarthritis of left knee Past Medical History: Diagnosis Date Acute gastric ulcer without hemorrhage or perforation Ulcer, gastric, acute - (Added by TW Conv) Alzheimer's dementia ([facility]) Asthma Back pain Cataract Closed fracture of left tibial plateau with delayed healing Closed fracture of right tibial plateau with delayed healing Closed nondisplaced osteochondral fracture of left patella with delayed healing Closed osteochondral fracture of patella, right, with delayed healing, subsequent encounter Clotting disorder ([facility]) ([facility]) Complex tear of medial meniscus of left knee as current injury Complex tear of medial meniscus of right knee as current injury Cramps of lower extremity Diverticulitis of colon Easy bruisability Fatigue Frequent urination Gastroesophageal reflux disease GERD Hypothyroidism Incontinence of urine Muscle weakness Osteoarthritis Osteoarthritis Peptic ulcer Peptic ulcer disease Seizures ([facility]) 1997 last seizure in 1997 SOB (shortness of breath) on exertion Subchondral insufficiency fracture of condyle of left femur ([facility]) ([facility]) Vertigo Vision changes Visual disturbance hx [...] and notified Physical Therapist / Physical Therapist Nailer Operator, name: Marcia, of patient's location and functional [...] Rosalia Marinelli OT 12/31/23 * Paresh Prieto, MUSIC SPECIALIST - 12/31/2023 10:01 AM CDT SPEECH LANGUAGE PATHOLOGY PROGRESS NOTE Patient's Name: Gunjan Gtz Jr. : 1945 Age: 78 y.o. Time In: 9:33 Time Out: 10:05 Patient Active Problem List Diagnosis Primary osteoarthritis of both knees Subchondral insufficiency fracture of condyle of left femur (CMS/HCC) ([facility]) Closed fracture of left tibial plateau [...] Infrarenal abdominal aortic aneurysm (AAA) without rupture ([facility]) Acute CVA (cerebrovascular accident) ([facility]) Moderate malnutrition (CMS/HCC) Primary osteoarthritis of left knee Past Medical History: Diagnosis Date Acute gastric ulcer without hemorrhage or perforation Ulcer, gastric, acute - (Added by TW Conv) Alzheimer's dementia ([facility]) Asthma Back pain Cataract Closed fracture of left tibial plateau with delayed healing Closed fracture of right tibial plateau with delayed healing Closed nondisplaced osteochondral fracture of left patella with delayed healing Closed osteochondral fracture of patella, right, with delayed healing, subsequent encounter Clotting disorder (CMS/HCC) ([facility]) Complex tear of medial meniscus of left knee as current injury Complex tear of medial meniscus of right knee as current injury Cramps of lower extremity Diverticulitis of colon Easy bruisability Fatigue Frequent urination Gastroesophageal reflux disease GERD Hypothyroidism Incontinence of urine Muscle weakness Osteoarthritis Osteoarthritis Peptic ulcer Peptic ulcer disease Seizures ([facility]) 1997 last seizure in 1997 SOB (shortness of breath) on exertion Subchondral insufficiency fracture of condyle of left femur (CMS/HCC) ([facility]) Vertigo Vision changes Visual disturbance hx [...] Problems (from Speech Therapy) Active Problems Problem: MUSIC SPECIALIST [facility] Start Date: 12/16/23 Goal Start Date Expected End Date End Date [facility] 1 12/16/23 01/06/24 -- Goal Details: Patient to perform short term memory tasks using compensatory strategies with 80% accuracy. Goal Start Date Expected End Date End Date [facility] 2 12/16/23 01/06/24 -- Goal Details: Patient to perform functional problem solving/reasoning tasks with 80% accuracy. Goal Start Date Expected End Date End Date [facility] [place] 3 12/16/23 01/06/24 -- Goal Details: Patient to attend to left visual field 80% of the time given 2-3 verbal prompts. Goal Start Date Expected End Date End Date [facility] 4 12/16/23 01/06/24 -- Goal Details: Patient's [...] fracture of condyle of left femur (CMS/HCC) ([facility]) Closed fracture of left tibial plateau [...] Infrarenal abdominal aortic aneurysm (AAA) without rupture ([facility]) Acute CVA (cerebrovascular accident) ([facility]) Moderate malnutrition (CMS/[facility]) Primary osteoarthritis of left knee Past Medical History: Diagnosis Date Acute gastric ulcer without hemorrhage or perforation Ulcer, gastric, acute - (Added by TW Conv) Alzheimer's dementia ([facility]) Asthma Back pain Cataract Closed fracture of left tibial plateau with delayed healing Closed fracture of right tibial plateau with delayed healing Closed nondisplaced osteochondral fracture of left patella with delayed healing Closed osteochondral fracture of patella, right, with delayed healing, subsequent encounter Clotting disorder (CMS/[facility]) ([facility]) Complex tear of medial meniscus of left knee as current injury Complex tear of medial meniscus of right knee as current injury Cramps of lower extremity Diverticulitis of colon Easy bruisability Fatigue Frequent urination Gastroesophageal reflux disease GERD Hypothyroidism Incontinence of urine Muscle weakness Osteoarthritis Osteoarthritis Peptic ulcer Peptic ulcer disease Seizures ([facility]) 1997 last seizure in 1997 SOB (shortness of breath) on exertion Subchondral insufficiency fracture of condyle of left femur ([facility]) ([facility]) Vertigo Vision changes Visual disturbance hx [...] PRECAUTIONS: Fall precautions SWALLOWING: Swallow assessed by MUSIC SPECIALIST. Regular consistency diet/thin liquids recommended. COGNITION: Decreased [...] Problems (from Speech Therapy) Active Problems Problem: MUSIC SPECIALIST [facility] Start Date: 12/16/23 Goal Start Date Expected End Date End Date [facility] 1 12/16/23 01/06/24 -- Goal Details: Patient to perform short term memory tasks using compensatory strategies with 80% accuracy. Goal Start Date Expected End Date End Date [facility] 2 12/16/23 01/06/24 -- Goal Details: Patient to perform functional problem solving/reasoning tasks with 80% accuracy. Goal Start Date Expected End Date End Date [facility] 3 12/16/23 01/06/24 -- Goal Details: Patient to attend to left visual field 80% of the time given 2-3 verbal prompts. Goal Start Date Expected End Date End Date [facility] 4 12/16/23 01/06/24 -- Goal Details: Patient's speech to be 90% intelligible during conversational tasks utilizing compensatory strategies. Frequency of Treatment: BID, 5xs weekly Recommendations: Recommend home with 24 hour supervision at discharge. If this is the last note, consider this the discharge summary. * Kay Aviles, THERMOSPRAY OPERATOR - 12/30/2023 2:27 PM CDT Physical Therapy [...] Skin lesion of breast Edema Intermittent claudication ([facility]) Iron deficiency anemia Peripheral vascular disease ([facility]) Pain due to total right knee replacement (CMS/HCC) ([facility]) Hamstring tendinitis of right thigh Quadriceps [...] Infrarenal abdominal aortic aneurysm (AAA) without rupture ([facility]) Acute CVA (cerebrovascular accident) ([facility]) Moderate malnutrition (CMS/HCC) Primary osteoarthritis of left [...] with cues for hand placement and safety. Transferswheelchair to recliner chair stand pivot transfer with [...] and goals. * Rosalia Marinelli, OLGA - 12/30/2023 1:32 PM CDT Occupational Therapy NOTE TYPE: OT TREATMENT ([facility] DEPARTMENT SESSION) PATIENT'S NAME: Gunjan Gtz Jr. AGE / SEX: 78 y.o. / male ROOM: [place] [id number] : 1945 DATE: 12/30/23 TIME IN: 1332 [...] Skin lesion of breast Edema Intermittent claudication ([facility]) Iron deficiency anemia Peripheral vascular disease ([facility]) Pain due to total right knee replacement ([facility]/HCC) ([facility]) Hamstring tendinitis of right thigh Quadriceps weakness Idiopathic peripheral neuropathy Abnormality of gait and mobility Hx of total knee replacement, right Neuropathy ([facility]) 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 Biceps tendinitis of left upper extremity Tear of left glenoid labrum Coffee ground emesis Upper GI bleed Acquired hypothyroidism Acute blood loss anemia Lung nodule Nocturnal cough Hiatal hernia Infrarenal abdominal aortic aneurysm (AAA) without rupture ([facility]) Acute CVA (cerebrovascular accident) ([facility]) Moderate malnutrition ([facility]) Primary osteoarthritis of left knee Past Medical History: Diagnosis Date Acute gastric ulcer without hemorrhage or perforation Ulcer, gastric, acute - (Added by TW Conv) Alzheimer's dementia ([facility]) Asthma Back pain Cataract Closed fracture of left tibial plateau with delayed healing Closed fracture of right tibial plateau with delayed healing Closed nondisplaced osteochondral fracture of left patella with delayed healing Closed osteochondral fracture of patella, right, with delayed healing, subsequent encounter Clotting disorder ([facility]) ([facility]) Complex tear of medial meniscus of left knee as current injury Complex tear of medial meniscus of right knee as current injury Cramps of lower extremity Diverticulitis of colon Easy bruisability Fatigue Frequent urination Gastroesophageal reflux disease GERD Hypothyroidism Incontinence of urine Muscle weakness Osteoarthritis Osteoarthritis Peptic ulcer Peptic ulcer disease Seizures ([facility]) 1997 last seizure in 1997 SOB (shortness of breath) on exertion Subchondral insufficiency fracture of condyle of left femur ([facility]) ([facility]) Vertigo Vision changes Visual disturbance hx [...] AND NOTIFIED Physical Therapist / Physical Therapist Nailer Operator, NAME: Shannan, OF PATIENT'S LOCATION AND FUNCTIONAL [...] Rosalia Marinelli OT 12/30/23 * Kay Aviles, THERMOSPRAY OPERATOR - 12/30/2023 11:59 AM CDT Physical Therapy PT PROGRESS NOTE Gunjan Ulisses [...] subsequent encounter Clotting disorder (CMS/HCC) ([facility]) Complex tear of medial meniscus of left knee as current injury Complex tear of medial meniscus of right knee as current injury Cramps of lower extremity Diverticulitis of colon Easy bruisability Fatigue Frequent urination Gastroesophageal reflux disease GERD Hypothyroidism Incontinence of urine Muscle weakness Osteoarthritis Osteoarthritis Peptic ulcer Peptic ulcer disease Seizures ([facility]) 1997 last seizure in 1997 SOB (shortness of breath) on exertion Subchondral insufficiency fracture of condyle of left femur (CMS/HCC) ([facility]) Vertigo Vision changes Visual disturbance hx [...] Skin lesion of breast Edema Intermittent claudication ([facility]) Iron deficiency anemia Peripheral vascular disease (HCC) [...] Sitting Sitting Pulse: 74 70 66 Resp: Temp: 36.8 ??C (98.2 ??F) 36.4 ??C [...] dress:MOD LB dress: MAX Footwear: MAX Toileting:TOTAL MUSIC SPECIALIST Cognition: Mild/moderate cognitive deficits in short-term memory, insight, and problem solving/reasoning. Left visual inattention. MUSIC SPECIALIST Communication: Mild dysarthria MUSIC SPECIALIST Swallowing: Tolerating regular diet with thin liquids [...] Daily, Becky Montana MD, 10 mg at 12/30/23 0755 [...] Becky Montana MD, 1 spray at 12/30/23 075 gabapentin (NEURONTIN) capsule 300 mg, 300 mg, [...] endurance, speech, cognition, swallow PT OT eval MUSIC SPECIALIST eval Continue aspirin 81mg, rosuvastatin 40mg Ophtho [...] Case Management; Social Work; Therapeutic Recreation; SpeechTherapy; Satellite Manager Frequency and duration of therapies expect to [...] Expected intensity and frequency of Speech Therapy (MUSIC SPECIALIST): 1 hour per day per day over 5-7 days per week for the duration of length of stay FUNCTIONAL CHANGE: DISCHARGE PLANNING: Expected Discharge Date: Sunday 01/07 with home health PT OT Equipment: TBD Family Training: SW to set up Education: Follow up Appointments: PCP 1-2 weeks Becky Montana MD Physical Medicine and Rehabilitation I can be reached from 7am-7pm through [employer] chat. Hospitalist computer education professor from 7pm-7am * Paresh Prieto SLP - [...] Infrarenal abdominal aortic aneurysm (AAA) without rupture ([facility]) Acute CVA (cerebrovascular accident) ([facility]) Moderate malnutrition (CMS/HCC) Primary osteoarthritis of left knee Past Medical History: Diagnosis Date Acute gastric ulcer without hemorrhage or perforation Ulcer, gastric, acute - (Added by TW Conv) Alzheimer's dementia ([facility]) Asthma Back pain Cataract Closed fracture of left tibial plateau with delayed healing Closed fracture of right tibial plateau with delayed healing Closed nondisplaced osteochondral fracture of left patella with delayed healing Closed osteochondral fracture of patella, right, with delayed healing, subsequent encounter Clotting disorder (CMS/HCC) ([facility]) Complex tear of medial meniscus of left knee as current injury Complex tear of medial meniscus of right knee as current injury Cramps of lower extremity Diverticulitis of colon Easy bruisability Fatigue Frequent urination Gastroesophageal reflux disease GERD Hypothyroidism Incontinence of urine Muscle weakness Osteoarthritis Osteoarthritis Peptic ulcer Peptic ulcer disease Seizures ([facility]) 1997 last seizure in 1997 SOB (shortness of breath) on exertion Subchondral insufficiency fracture of condyle of left femur (CMS/HCC) ([facility]) Vertigo Vision changes Visual disturbance hx [...] Problems (from Speech Therapy) Active Problems Problem: MUSIC SPECIALIST Misc Start Date: 12/16/23 Goal Start Date Expected End Date End Date [facility] 1 12/16/23 01/06/24 -- Goal Details: Patient to perform short term memory tasks using compensatory strategies with 80% accuracy. Goal Start Date Expected End Date End Date [facility] [place] 2 12/16/23 01/06/24 -- Goal Details: Patient to perform functional problem solving/reasoning tasks with 80% accuracy. Goal Start Date Expected End Date End Date [facility] [place] 3 12/16/23 01/06/24 -- Goal Details: Patient to attend to left visual field 80% of the time given 2-3 verbal prompts. Goal Start Date Expected End Date End Date [facility] [place] 4 12/16/23 01/06/24 -- Goal Details: Patient's speech to be 90% intelligible during conversational tasks utilizing compensatory strategies. Frequency of Treatment: BID, 5xs weekly Recommendations: Recommend home with 24 hour supervision at discharge. If this is the last note, consider this the discharge summary. * Rosalia Marinelli, OT - 12/30/2023 10:00 AM CDT Occupational Therapy NOTE TYPE: OT TREATMENT ([facility] BEDSIDE SESSION) Patient's Name: Gunjan Gtz Jr. Age / Sex: 78 y.o. / male Room: [place] [address] : 1945 Date: 12/30/23 Time In: 1000 [...] due to total right knee replacement (CMS/HCC) ([facility]) Hamstring tendinitis of right thigh Quadriceps weakness Idiopathic peripheral neuropathy Abnormality of gait and mobility Hx of total knee replacement, right Neuropathy (CMS/[facility]) 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 Biceps tendinitis of left upper extremity Tear of left glenoid labrum Coffee ground emesis Upper GI bleed Acquired hypothyroidism Acute blood loss anemia Lung nodule Nocturnal cough Hiatal hernia Infrarenal abdominal aortic aneurysm (AAA) without rupture ([facility]) Acute CVA (cerebrovascular accident) ([facility]) Moderate malnutrition (CMS/[facility]) Primary osteoarthritis of left knee Past Medical History: Diagnosis Date Acute gastric ulcer without hemorrhage or perforation Ulcer, gastric, acute - (Added by TW Conv) Alzheimer's dementia [facility] [facility] Asthma Back pain Cataract Closed fracture of left tibial plateau with delayed healing Closed fracture of right tibial plateau with delayed healing Closed nondisplaced osteochondral fracture of left patella with delayed healing Closed osteochondral fracture of patella, right, with delayed healing, subsequent encounter Clotting disorder ([facility]) ([facility]) Complex tear of medial meniscus of left knee as current injury Complex tear of medial meniscus of right knee as current injury Cramps of lower extremity Diverticulitis of colon Easy bruisability Fatigue Frequent urination Gastroesophageal reflux disease GERD Hypothyroidism Incontinence of urine Muscle weakness Osteoarthritis Osteoarthritis Peptic ulcer Peptic ulcer disease Seizures ([facility]) 1997 last seizure in 1997 SOB (shortness of breath) on exertion Subchondral insufficiency fracture of condyle of left femur ([facility]) ([facility]) Vertigo Vision changes Visual disturbance hx [...] and notified Physical Therapist / Physical Therapist Nailer Operator, name: Shannan, of patient's location and functional [...] AND GOALS Rosalia Marinelli OT 12/30/23 * Madie Oneill, THERMOSPRAY OPERATOR - 12/29/2023 2:22 PM CDT Physical Therapy PT PROGRESS NOTE Gunjan Gtz Jr. 78 y.o. 1945 Past Medical History: Diagnosis Date Acute gastric ulcer without hemorrhage or perforation Ulcer, gastric, acute - (Added by TW Conv) Alzheimer's dementia ([facility]) Asthma Back pain Cataract Closed fracture of left tibial plateau with delayed healing Closed fracture of right tibial plateau with delayed healing Closed nondisplaced osteochondral fracture of left patella with delayed healing Closed osteochondral fracture of patella, right, with delayed healing, subsequent encounter Clotting disorder ([facility]) ([facility]) Complex tear of medial meniscus of [...] fracture of condyle of left femur (CMS/HCC) ([facility]) Vertigo Vision changes Visual disturbance hx of double vision, corrective lenses Past Surgical History: Procedure Laterality Date CATARACT EXTRACTION, BILATERAL Bilateral 2018 HERNIA REPAIR 1980 Hiatal Hernia repair KNEE ARTHROSCOPY Bilateral THYROIDECTOMY 12/27/2019 Patient Active Problem List Diagnosis Primary osteoarthritis of both knees Subchondral insufficiency fracture of condyle of left femur (CMS/HCC) ([facility]) Closed fracture of left tibial plateau [...] established deficits and goals. * Paresh Prieto, MUSIC SPECIALIST - 12/29/2023 2:00 PM CDT SPEECH LANGUAGE PATHOLOGY PROGRESS NOTE Patient's Name: Gunjan Gtz Jr. : 1945 Age: 78 y.o. Time In: 13:05 Time Out: 13:30 Patient Active Problem List Diagnosis Primary osteoarthritis of both knees Subchondral insufficiency fracture of condyle of left femur (CMS/HCC) ([facility]) Closed fracture of left tibial plateau [...] due to total right knee replacement (CMS/HCC) ([facility]) Hamstring tendinitis of right thigh Quadriceps [...] without rupture (HCC) Acute CVA (cerebrovascular accident) ([facility]) Moderate malnutrition (CMS/HCC) Past Medical History: Diagnosis Date Acute gastric ulcer without hemorrhage or perforation Ulcer, gastric, acute - (Added by TW Conv) Alzheimer's dementia ([facility]) Asthma Back pain Cataract Closed fracture of left tibial plateau with delayed healing Closed fracture of right tibial plateau with delayed healing Closed nondisplaced osteochondral fracture of left patella with delayed healing Closed osteochondral fracture of patella, right, with delayed healing, subsequent encounter Clotting disorder (CMS/HCC) ([facility]) Complex tear of medial meniscus of left knee as current injury Complex tear of medial meniscus of right knee as current injury Cramps of lower extremity Diverticulitis of colon Easy bruisability Fatigue Frequent urination Gastroesophageal reflux disease GERD Hypothyroidism Incontinence of urine Muscle weakness Osteoarthritis Osteoarthritis Peptic ulcer Peptic ulcer disease Seizures ([facility]) 1997 last seizure in 1997 SOB (shortness of breath) on exertion Subchondral insufficiency fracture of condyle of left femur (CMS/HCC) ([facility]) Vertigo Vision changes Visual disturbance hx [...] Problems (from Speech Therapy) Active Problems Problem: MUSIC SPECIALIST Misc Start Date: 12/16/23 Goal Start Date Expected End Date End Date MUSIC SPECIALIST [facility] - [facility] 1 12/16/23 12/23/23 -- Goal Details: Patient to perform short term memory tasks using compensatory strategies with 80% accuracy. Goal Start Date Expected End Date End Date [facility] [place] 2 12/16/23 12/23/23 -- Goal Details: Patient to perform functional problem solving/reasoning tasks with 80% accuracy. Goal Start Date Expected End Date End Date [facility] 3 12/16/23 12/23/23 -- Goal Details: Patient to attend to left visual field 80% of the time given 2-3 verbal prompts. Goal Start Date Expected End Date End Date [facility] - [facility] [place] 4 12/16/23 12/23/23 -- Goal Details: Patient's [...] / SEX: 78 y.o. / male ROOM: [place] [id number] : 1945 DATE: 12/29/23 TIME IN: 1330 TIME OUT: 1405 Patient Active Problem List Diagnosis Primary osteoarthritis of both knees Subchondral insufficiency fracture of condyle of left femur (CMS/HCC) ([facility]) Closed fracture of left tibial plateau [...] Skin lesion of breast Edema Intermittent claudication ([facility]) Iron deficiency anemia Peripheral vascular disease ([facility]) Pain due to total right knee replacement (CMS/HCC) ([facility]) Hamstring tendinitis of right thigh Quadriceps [...] Infrarenal abdominal aortic aneurysm (AAA) without rupture ([facility]) Acute CVA (cerebrovascular accident) ([facility]) Moderate malnutrition (CMS/HCC) Past Medical History: Diagnosis Date Acute gastric ulcer without hemorrhage or perforation Ulcer, gastric, acute - (Added by TW Conv) Alzheimer's dementia ([facility]) Asthma Back pain Cataract Closed fracture of left tibial plateau with delayed healing Closed fracture of right tibial plateau with delayed healing Closed nondisplaced osteochondral fracture of left patella with delayed healing Closed osteochondral fracture of patella, right, with delayed healing, subsequent encounter Clotting disorder (CMS/HCC) ([facility]) Complex tear of medial meniscus of left knee as current injury Complex tear of medial meniscus of right knee as current injury Cramps of lower extremity Diverticulitis of colon Easy bruisability Fatigue Frequent urination Gastroesophageal reflux disease GERD Hypothyroidism Incontinence of urine Muscle weakness Osteoarthritis Osteoarthritis Peptic ulcer Peptic ulcer disease Seizures ([facility]) 1997 last seizure in 1997 SOB (shortness of breath) on exertion Subchondral insufficiency fracture of condyle of left femur (CMS/HCC) ([facility]) Vertigo Vision changes Visual disturbance hx [...] AND NOTIFIED Physical Therapist / Physical Therapist Nailer Operator, NAME: Marcia, OF PATIENT'S LOCATION AND FUNCTIONAL [...] dress:MOD LB dress: MAX Footwear: MAX Toileting:TOTAL MUSIC SPECIALIST Cognition: Mild/moderate cognitive deficits in short-term memory, insight, and problem solving/reasoning. Left visual inattention. MUSIC SPECIALIST Communication: Mild dysarthria MUSIC SPECIALIST Swallowing: Tolerating regular diet with thin liquids [...] endurance, speech, cognition, swallow PT OT eval MUSIC SPECIALIST eval Continue aspirin 81mg, rosuvastatin 40mg Ophtho [...] Case Management; Social Work; Therapeutic Recreation; SpeechTherapy; Satellite Manager Frequency and duration of therapies expect to [...] Expected intensity and frequency of Speech Therapy (MUSIC SPECIALIST): 1 hour per day per day over [...] I can be reached from 7am-7pm through [employer]. Hospitalist computer education professor from 7pm-7am * Madie Oneill, THERMOSPRAY OPERATOR - 12/29/2023 10:55 AM CDT Physical Therapy PT PROGRESS NOTE Gunjan Gtz Jr. 78 y.o. 1945 Past Medical History: Diagnosis Date Acute gastric ulcer without hemorrhage or perforation Ulcer, gastric, acute - (Added by TW Conv) Alzheimer's dementia ([facility]) Asthma Back pain Cataract Closed fracture [...] Osteoarthritis Peptic ulcer Peptic ulcer disease Seizures ([facility]) 1997 last seizure in 1997 SOB [...] established deficits and goals. * Paresh Prieto, MUSIC SPECIALIST - 12/29/2023 10:32 AM CDT SPEECH LANGUAGE [...] with delayed healing, subsequent encounter Clotting disorder ([facility]) ([facility]) Complex tear of medial meniscus of left knee as current injury Complex tear of medial meniscus of right knee as current injury Cramps of lower extremity Diverticulitis of colon Easy bruisability Fatigue Frequent urination Gastroesophageal reflux disease GERD Hypothyroidism Incontinence of urine Muscle weakness Osteoarthritis Osteoarthritis Peptic ulcer Peptic ulcer disease Seizures ([facility]) 1997 last seizure in 1997 SOB (shortness of breath) on exertion Subchondral insufficiency fracture of condyle of left femur ([facility]) ([facility]) Vertigo Vision changes Visual disturbance hx of double vision, corrective lenses Past Surgical History: Procedure Laterality Date CATARACT EXTRACTION, BILATERAL Bilateral 2018 HERNIA REPAIR 1979 Hiatal Hernia repair KNEE ARTHROSCOPY Bilateral THYROIDECTOMY 12/27/2019 SUBJECTIVE MENTAL STATUS: Awake and cooperative; resting in recliner. Reports sleeping better last night. PAIN: Pre Therapy Pain Level: 10 Pain Location: left shoulder Pain Intervention: RN [...] Problems (from Speech Therapy) Active Problems Problem: [facility] Start Date: 12/16/23 Goal Start Date Expected End Date End Date [facility] [place] 1 12/16/23 12/23/23 -- Goal Details: Patient to perform short term memory tasks using compensatory strategies with 80% accuracy. Goal Start Date Expected End Date End Date [facility] 2 12/16/23 12/23/23 -- Goal Details: Patient to perform functional problem solving/reasoning tasks with 80% accuracy. Goal Start Date Expected End Date End Date [facility] 3 12/16/23 12/23/23 -- Goal Details: Patient to attend to left visual field 80% of the time given 2-3 verbal prompts. Goal Start Date Expected End Date End Date [facility] SPECIAL[facility] - [facility] [place] 4 12/16/23 12/23/23 -- Goal Details: Patient's speech to be 90% intelligible during conversational tasks utilizing compensatory strategies. Frequency of Treatment: BID, 5xs weekly Recommendations: Recommend home with 24 hour supervision at discharge. If this is the last note, consider this the discharge summary. * Sravani Helms, OT - 12/29/2023 9:59 AM CDT Occupational Therapy NOTE TYPE: OT TREATMENT ([facility]) Patient's Name: Gunjan Gtz Jr. Age / Sex: 78 y.o. / male Room: [place] [id number] : 1945 Date: 12/29/23 Time In: 958 Time Out: 1059 Patient Active Problem List Diagnosis Primary osteoarthritis [...] - (Added by TW Conv) Alzheimer's dementia ([facility]) Asthma Back pain Cataract Closed fracture of left tibial plateau with delayed healing Closed fracture of right tibial plateau with delayed healing Closed nondisplaced osteochondral fracture of left patella with delayed healing Closed osteochondral fracture of patella, right, with delayed healing, subsequent encounter Clotting disorder ([facility]) ([facility]) Complex tear of medial meniscus of left knee as current injury Complex tear of medial meniscus of right knee as current injury Cramps of lower extremity Diverticulitis of colon Easy bruisability Fatigue Frequent urination Gastroesophageal reflux disease GERD Hypothyroidism Incontinence of urine Muscle weakness Osteoarthritis Osteoarthritis Peptic ulcer Peptic ulcer disease Seizures ([facility]) 1997 last seizure in 1997 SOB (shortness of breath) on exertion Subchondral insufficiency fracture of condyle of left femur ([facility]) ([facility]) Vertigo Vision changes Visual disturbance hx [...] and notified Physical Therapist / Physical Therapist Nailer Operator, name: Marcia, of patient's location and functional [...] Sravani Helms, OT 12/29/23 * Kay Aviles, THERMOSPRAY OPERATOR - 12/28/2023 3:37 PM CDT Physical Therapy [...] subsequent encounter Clotting disorder (CMS/HCC) ([facility]) Complex tear of medial meniscus of [...] fracture of condyle of left femur (CMS/HCC) ([facility]) Vertigo Vision changes Visual disturbance hx [...] stand pivot transfer with min assist, left MILLING MACHINIST. Ambulates with rasheed-aid 28'x1, 34'x1 min assist [...] goals. * Rosalia Marinelli, OT - 12/28/2023 3:28 PM CDT Occupational Therapy NOTE / SESSION TYPE: OT ROUNDS UPDATE PATIENT'S NAME: Gunjan Gtz Jr. AGE / SEX: 78 y.o. / male ROOM: [place] [id number] : 1945 DATE: 12/28/23 Multi-Disciplinary Problems (from Occupational Therapy) Active Problems Problem: OT [facility] Start Date: 12/16/23 Goal Start Date Expected End Date End Date [facility] 1 12/16/23 12/23/23 -- Goal Details: Patient will complete basic ADL routine including: bathing in shower, LE dressing, footwear, UB dressing, and grooming tasks with min assist and appropriate compensatory strategies. Goal Start Date Expected End Date End Date [facility] 2 12/16/23 12/23/23 -- Goal Details: Patient will complete simulated car transfer using appropriate device with min assist Goal Start Date Expected End Date End Date [facility] 3 12/16/23 12/23/23 -- Goal Details: Patient will complete toileting and toilet transfer with min assist and appropriate device. Goal Start Date Expected End Date End Date [facility] 4 12/16/23 12/23/23 -- Goal Details: Patient will complete functional/meaningful task in standing for 3-5 minutes with minassist for balance one time. Goal Start Date Expected End Date End Date OT [facility] [place] 5 12/16/23 12/23/23 -- Goal Details: Patient will complete HEP (LUE SROM/RUE AROM) to improve BUE ROM/strength/endurance and ADL participation with min verbal cues 1 time. Goal Start Date Expected End Date End Date OT [facility] 6 12/16/23 12/23/23 -- Goal Details: Patient family/caregiver will attend one OT session and be aware of discharge needs/plans Goal Start Date Expected End Date End Date OT [facility] 7 12/16/23 12/23/23 -- Goal [...] and SHOWER GRAB BARS Rosalia Marinelli OT 12/28/23 3:29 PM . * Paresh Prieto, MUSIC SPECIALIST - 12/28/2023 3:03 PM CDT SPEECH LANGUAGE [...] fracture of condyle of left femur (CMS/HCC) ([facility]) Vertigo Vision changes Visual disturbance hx [...] Problems (from Speech Therapy) Active Problems Problem: [facility] Start Date: 12/16/23 Goal Start Date Expected End Date End Date [facility] 1 12/16/23 12/23/23 -- Goal Details: Patient to perform short term memory tasks using compensatory strategies with 80% accuracy. Goal Start Date Expected End Date End Date [facility] 2 12/16/23 12/23/23 -- Goal Details: Patient to perform functional problem solving/reasoning tasks with 80% accuracy. Goal Start Date Expected End Date End Date [facility] 3 12/16/23 12/23/23 -- Goal Details: Patient to attend to left visual field 80% of the time given 2-3 verbal prompts. Goal Start Date Expected End Date End Date [facility] 4 12/16/23 12/23/23 -- Goal Details: Patient's [...] / SEX: 78 y.o. / male ROOM: [place] [address] : 1945 DATE: 12/28/23 TIME IN: 1330 TIME OUT: 1415 Patient Active Problem List [...] subsequent encounter Clotting disorder (CMS/HCC) ([facility]) Complex tear of medial meniscus of left knee as current injury Complex tear of medial meniscus of right knee as current injury Cramps of lower extremity Diverticulitis of colon Easy bruisability Fatigue Frequent urination Gastroesophageal reflux disease GERD Hypothyroidism Incontinence of urine Muscle weakness Osteoarthritis Osteoarthritis Peptic ulcer Peptic ulcer disease Seizures ([facility]) 1997 last seizure in 1997 SOB (shortness of breath) on exertion Subchondral insufficiency fracture of condyle of left femur (CMS/HCC) ([facility]) Vertigo Vision changes Visual disturbance hx [...] AND NOTIFIED Physical Therapist / Physical Therapist Nailer Operator, NAME: Shannan, OF PATIENT'S LOCATION AND FUNCTIONAL [...] with history of GERD, PVD presented to [facility] on 12/07 with sudden left sided weakness. [...] with delayed healing, subsequent encounter Clotting disorder ([facility]) ([facility]) Complex tear of medial meniscus of left knee as current injury Complex tear of medial meniscus of right knee as current injury Cramps of lower extremity Diverticulitis of colon Easy bruisability Fatigue Frequent urination Gastroesophageal reflux disease GERD Hypothyroidism Incontinence of urine Muscle weakness Osteoarthritis Osteoarthritis Peptic ulcer Peptic ulcer disease Seizures ([facility]) 1997 last seizure in 1997 SOB (shortness of breath) on exertion Subchondral insufficiency fracture of condyle of left femur (CMS/[facility]) ([facility]) Vertigo Vision changes Visual disturbance hx [...] BUN SERUM mg/dL 18 CREATININE mg/dL 1.30 [id number] mL/min/1.73 m2 56 CALCIUM mg/dL 8.9 ALBUMIN [...] Per previous documentation Pt reported poor appetite THERMOSPRAY OPERATOR. Estimated Pt with intakes <75% of estimated [...] depth pinch but not ample Muscle Loss [place] [facility] [place] Muscle: Slight depression Clavicle [...] supplements 1-2x/day if appetite is poor. Call [phone] to speak with a dietitian about any [...] dress:MOD LB dress: MAX Footwear: MAX Toileting:TOTAL MUSIC SPECIALIST Cognition: Mild/moderate cognitive deficits in short-term memory, insight, and problem solving/reasoning. Left visual inattention. MUSIC SPECIALIST Communication: Mild dysarthria MUSIC SPECIALIST Swallowing: Tolerating regular diet with thin liquids [...] Becky Montana MD, 1 spray at 12/28/23 0806 gabapentin (NEURONTIN) capsule 300 mg, 300 mg, [...] endurance, speech, cognition, swallow PT OT eval MUSIC SPECIALIST eval Continue aspirin 81mg, rosuvastatin 40mg Ophtho [...] Case Management; Social Work; Therapeutic Recreation; SpeechTherapy; Satellite Manager Frequency and duration of therapies expect to [...] Expected intensity and frequency of Speech Therapy (MUSIC SPECIALIST): 1 hour per day per day over 5-7 days per week for the duration of length of stay FUNCTIONAL CHANGE: DISCHARGE PLANNING: Expected Discharge Date: TBD Equipment: TBD Family Training: SW to set up Education: Follow up Appointments: PCP 1-2 weeks Becky Montana MD Physical Medicine and Rehabilitation I can be reached from 7am-7pm through [employer]. Hospitalist computer education professor from 7pm-7am * Kay Aviles, THERMOSPRAY OPERATOR - 12/28/2023 11:00 AM CDT Physical Therapy [...] subsequent encounter Clotting disorder (CMS/HCC) ([facility]) Complex tear of medial meniscus of left knee as current injury Complex tear of medial meniscus of right knee as current injury Cramps of lower extremity Diverticulitis of colon Easy bruisability Fatigue Frequent urination Gastroesophageal reflux disease GERD Hypothyroidism Incontinence of urine Muscle weakness Osteoarthritis Osteoarthritis Peptic ulcer Peptic ulcer disease Seizures ([facility]) 1997 last seizure in 1997 SOB [...] Occupational Therapy NOTE TYPE: OT TREATMENT ([facility]) Patient's Name: Gunjan Gtz Jr. Age / Sex: 78 y.o. / male Room: [place] [address] : 1945 Date: 12/28/23 Time In: 0950 Time Out: 1050 Patient Active Problem List Diagnosis Primary osteoarthritis of both knees Subchondral insufficiency fracture of condyle of left femur (CMS/HCC) ([facility]) Closed fracture of left tibial plateau [...] Skin lesion of breast Edema Intermittent claudication ([facility]) Iron deficiency anemia Peripheral vascular disease ([facility]) Pain due to total right knee replacement (CMS/HCC) ([facility]) Hamstring tendinitis of right thigh Quadriceps [...] Infrarenal abdominal aortic aneurysm (AAA) without rupture ([facility]) Acute CVA (cerebrovascular accident) ([facility]) Moderate malnutrition (CMS/HCC) Past Medical History: Diagnosis Date Acute gastric ulcer without hemorrhage or perforation Ulcer, gastric, acute - (Added by TW Conv) Alzheimer's dementia ([facility]) Asthma Back pain Cataract Closed fracture of left tibial plateau with delayed healing Closed fracture of right tibial plateau with delayed healing Closed nondisplaced osteochondral fracture of left patella with delayed healing Closed osteochondral fracture of patella, right, with delayed healing, subsequent encounter Clotting disorder ([facility]) ([facility]) Complex tear of medial meniscus of left knee as current injury Complex tear of medial meniscus of right knee as current injury Cramps of lower extremity Diverticulitis of colon Easy bruisability Fatigue Frequent urination Gastroesophageal reflux disease GERD Hypothyroidism Incontinence of urine Muscle weakness Osteoarthritis Osteoarthritis Peptic ulcer Peptic ulcer disease Seizures ([facility]) 1997 last seizure in 1997 SOB (shortness of breath) on exertion Subchondral insufficiency fracture of condyle of left femur (CMS/HCC) ([facility]) Vertigo Vision changes Visual disturbance hx [...] and notified Physical Therapist / Physical Therapist Nailer Operator, name: Shannan, of patient's location and functional [...] due to total right knee replacement (CMS/HCC) ([facility]) Hamstring tendinitis of right thigh Quadriceps [...] Infrarenal abdominal aortic aneurysm (AAA) without rupture ([facility]) Acute CVA (cerebrovascular accident) ([facility]) Moderate malnutrition (CMS/[facility]) Past Medical History: Diagnosis Date Acute gastric ulcer without hemorrhage or perforation Ulcer, gastric, acute - (Added by TW Conv) Alzheimer's dementia ([facility]) Asthma Back pain Cataract Closed fracture of left tibial plateau with delayed healing Closed fracture of right tibial plateau with delayed healing Closed nondisplaced osteochondral fracture of left patella with delayed healing Closed osteochondral fracture of patella, right, with delayed healing, subsequent encounter Clotting disorder ([facility]) ([facility]) Complex tear of medial meniscus of left knee as current injury Complex tear of medial meniscus of right knee as current injury Cramps of lower extremity Diverticulitis of colon Easy bruisability Fatigue Frequent urination Gastroesophageal reflux disease GERD Hypothyroidism Incontinence of urine Muscle weakness Osteoarthritis Osteoarthritis Peptic ulcer Peptic ulcer disease Seizures ([facility]) 1997 last seizure in 1997 SOB (shortness of breath) on exertion Subchondral insufficiency fracture of condyle of left femur ([facility]/HCC) ([facility]) Vertigo Vision changes Visual disturbance hx [...] Problems (from Speech Therapy) Active Problems Problem: [facility] Start Date: 12/16/23 Goal Start Date Expected End Date End Date [facility] 1 12/16/23 12/23/23 -- Goal Details: Patient to perform short term memory tasks using compensatory strategies with 80% accuracy. Goal Start Date Expected End Date End Date [facility] 2 12/16/23 12/23/23 -- Goal Details: Patient to perform functional problem solving/reasoning tasks with 80% accuracy. Goal Start Date Expected End Date End Date [facility] 3 12/16/23 12/23/23 -- Goal Details: Patient to attend to left visual field 80% of the time given 2-3 verbal prompts. Goal Start Date Expected End Date End Date [facility] 4 12/16/23 12/23/23 -- Goal Details: Patient's speech to be 90% intelligible during conversational tasks utilizing compensatory strategies. Frequency of Treatment: BID 5xs weekly Recommendations: Home with 24 hour supervision If this is the last note, consider this the discharge summary. * Madie Oneill, THERMOSPRAY OPERATOR - 12/27/2023 2:36 PM CDT Physical Therapy [...] fracture of condyle of left femur (CMS/HCC) ([facility]) Closed fracture of left tibial plateau [...] Skin lesion of breast Edema Intermittent claudication ([facility]) Iron deficiency anemia Peripheral vascular disease ([facility]) Pain due to total right knee replacement (CMS/HCC) ([facility]) Hamstring tendinitis of right thigh Quadriceps [...] Infrarenal abdominal aortic aneurysm (AAA) without rupture ([facility]) Acute CVA (cerebrovascular accident) ([facility]) Moderate malnutrition (CMS/HCC) TIME IN: 1433 TIME [...] chair alarm active, call light in reach, moravian friend present to trim patient's hair. EDUCATION: [...] / SEX: 78 y.o. / [id number] 1945 DATE: 12/27/23 TIME IN: 1335 TIME OUT: 1414 Patient Active Problem List Diagnosis Primary osteoarthritis of both knees Subchondral insufficiency fracture of condyle of left femur (CMS/HCC) ([facility]) Closed fracture of left tibial plateau [...] due to total right knee replacement (CMS/HCC) ([facility]) Hamstring tendinitis of right thigh Quadriceps [...] Infrarenal abdominal aortic aneurysm (AAA) without rupture ([facility]) Acute CVA (cerebrovascular accident) ([facility]) Moderate malnutrition (CMS/[facility]) Past Medical History: Diagnosis Date Acute gastric ulcer without hemorrhage or perforation Ulcer, gastric, acute - (Added by TW Conv) Alzheimer's dementia ([facility]) Asthma Back pain Cataract Closed fracture of left tibial plateau with delayed healing Closed fracture of right tibial plateau with delayed healing Closed nondisplaced osteochondral fracture of left patella with delayed healing Closed osteochondral fracture of patella, right, with delayed healing, subsequent encounter Clotting disorder (CMS/HCC) ([facility]) Complex tear of medial meniscus of left knee as current injury Complex tear of medial meniscus of right knee as current injury Cramps of lower extremity Diverticulitis of colon Easy bruisability Fatigue Frequent urination Gastroesophageal reflux disease GERD Hypothyroidism Incontinence of urine Muscle weakness Osteoarthritis Osteoarthritis Peptic ulcer Peptic ulcer disease Seizures ([facility]) 1997 last seizure in 1997 SOB (shortness of breath) on exertion Subchondral insufficiency fracture of condyle of left femur (CMS/HCC) ([facility]) Vertigo Vision changes Visual disturbance hx [...] AND NOTIFIED Physical Therapist / Physical Therapist Nailer Operator, NAME: Kathy, OF PATIENT'S LOCATION AND FUNCTIONAL [...] GOALS ANGI Villa 12/27/23 * Ella Carter, MUSIC SPECIALIST - 12/27/2023 1:08 PM CDT SPEECH LANGUAGE [...] Skin lesion of breast Edema Intermittent claudication ([facility]) Iron deficiency anemia Peripheral vascular disease ([facility]) Pain due to total right knee replacement (CMS/HCC) ([facility]) Hamstring tendinitis of right thigh Quadriceps [...] Infrarenal abdominal aortic aneurysm (AAA) without rupture ([facility]) Acute CVA (cerebrovascular accident) ([facility]) Moderate malnutrition (CMS/[facility]) Past Medical History: Diagnosis Date Acute gastric ulcer without hemorrhage or perforation Ulcer, gastric, acute - (Added by TW Conv) Alzheimer's dementia ([facility]) Asthma Back pain Cataract Closed fracture of left tibial plateau with delayed healing Closed fracture of right tibial plateau with delayed healing Closed nondisplaced osteochondral fracture of left patella with delayed healing Closed osteochondral fracture of patella, right, with delayed healing, subsequent encounter Clotting disorder ([facility]) ([facility]) Complex tear of medial meniscus of left knee as current injury Complex tear of medial meniscus of right knee as current injury Cramps of lower extremity Diverticulitis of colon Easy bruisability Fatigue Frequent urination Gastroesophageal reflux disease GERD Hypothyroidism Incontinence of urine Muscle weakness Osteoarthritis Osteoarthritis Peptic ulcer Peptic ulcer disease Seizures ([facility]) 1997 last seizure in 1997 SOB (shortness of breath) on exertion Subchondral insufficiency fracture of condyle of left femur (CMS/HCC) ([facility]) Vertigo Vision changes Visual disturbance hx [...] Problems (from Speech Therapy) Active Problems Problem: MUSIC SPECIALIST [facility] Start Date: 12/16/23 Goal Start Date Expected End Date End Date [facility] 1 12/16/23 12/23/23 -- Goal Details: Patient to perform short term memory tasks using compensatory strategies with 80% accuracy. Goal Start Date Expected End Date End Date [facility] 2 12/16/23 12/23/23 -- Goal Details: Patient to perform functional problem solving/reasoning tasks with 80% accuracy. Goal Start Date Expected End Date End Date [facility] 3 12/16/23 12/23/23 -- Goal Details: Patient to attend to left visual field 80% of the time given 2-3 verbal prompts. Goal Start Date Expected End Date End Date [facility] 4 12/16/23 12/23/23 -- Goal Details: Patient's [...] dress:MOD LB dress: MAX Footwear: MAX Toileting:TOTAL MUSIC SPECIALIST Cognition: Mild/moderate cognitive deficits in short term memory and thought organization. MUSIC SPECIALIST Communication: Mild dysarthric speech. MUSIC SPECIALIST Swallowing: Swallow assessed by MUSIC SPECIALIST. Regular consistency diet/thin liquids recommended. Patientuses intermittent [...] mg, 650 mg, oral, Q6H PRN, Becky Montana, MD, 650 mg at 12/27/23 0348 albuterol [...] endurance, speech, cognition, swallow PT OT eval MUSIC SPECIALIST eval Continue aspirin 81mg, rosuvastatin 40mg Ophtho [...] Case Management; Social Work; Therapeutic Recreation; SpeechTherapy; Satellite Manager Frequency and duration of therapies expect to [...] Expected intensity and frequency of Speech Therapy (MUSIC SPECIALIST): 1 hour per day per day over 5-7 days per week for the duration of length of stay FUNCTIONAL CHANGE: Amb 20' rasheed aide Ole DISCHARGE PLANNING: Expected Discharge Date: TBD Equipment: TBD Family Training: SW to set up Education: Follow up Appointments: PCP 1-2 weeks Becky Montana MD Physical Medicine and Rehabilitation I can be reached from 7am-7pm through [employer] chat. Hospitalist computer education professor from 7pm-7am * Madie Oneill PTA - [...] / Sex: 78 y.o. / male Room: [place] [id number] : 1945 Date: 12/27/23 Time In: 1000 Time Out: 1109 Patient Active Problem List Diagnosis Primary osteoarthritis of both knees Subchondral insufficiency fracture of condyle of left femur (CMS/HCC) ([facility]) Closed fracture of left tibial plateau [...] Skin lesion of breast Edema Intermittent claudication ([facility]) Iron deficiency anemia Peripheral vascular disease ([facility]) Pain due to total right knee replacement (CMS/HCC) ([facility]) Hamstring tendinitis of right thigh Quadriceps [...] Infrarenal abdominal aortic aneurysm (AAA) without rupture ([facility]) Acute CVA (cerebrovascular accident) ([facility]) Moderate malnutrition (CMS/[facility]) Past Medical History: Diagnosis Date Acute gastric ulcer without hemorrhage or perforation Ulcer, gastric, acute - (Added by TW Conv) Alzheimer's dementia ([facility]) Asthma Back pain Cataract Closed fracture of left tibial plateau with delayed healing Closed fracture of right tibial plateau with delayed healing Closed nondisplaced osteochondral fracture of left patella with delayed healing Closed osteochondral fracture of patella, right, with delayed healing, subsequent encounter Clotting disorder (CMS/HCC) ([facility]) Complex tear of medial meniscus of left knee as current injury Complex tear of medial meniscus of right knee as current injury Cramps of lower extremity Diverticulitis of colon Easy bruisability Fatigue Frequent urination Gastroesophageal reflux disease GERD Hypothyroidism Incontinence of urine Muscle weakness Osteoarthritis Osteoarthritis Peptic ulcer Peptic ulcer disease Seizures ([facility]) 1997 last seizure in 1997 SOB [...] and notified Physical Therapist / Physical Therapist Nailer Operator, name: Marcia, of patient's location and functional [...] GOALS ANGI Villa 12/27/23 * Ella Carter, MUSIC SPECIALIST - 12/27/2023 9:11 AM CDT SPEECH LANGUAGE [...] Osteoarthritis Peptic ulcer Peptic ulcer disease Seizures ([facility]) 1997 last seizure in 1997 SOB (shortness of breath) on exertion Subchondral insufficiency fracture of condyle of left femur (CMS/HCC) ([facility]) Vertigo Vision changes Visual disturbance hx [...] Problems (from Speech Therapy) Active Problems Problem: [facility] Start Date: 12/16/23 Goal Start Date Expected End Date End Date [facility] 1 12/16/23 12/23/23 -- Goal Details: Patient to perform short term memory tasks using compensatory strategies with 80% accuracy. Goal Start Date Expected End Date End Date [facility] 2 12/16/23 12/23/23 -- Goal Details: Patient to perform functional problem solving/reasoning tasks with 80% accuracy. Goal Start Date Expected End Date End Date [facility] 3 12/16/23 12/23/23 -- Goal Details: Patient to attend to left visual field 80% of the time given 2-3 verbal prompts. Goal Start Date Expected End Date End Date [facility] 4 12/16/23 12/23/23 -- Goal Details: Patient's speech to be 90% intelligible during conversational tasks utilizing compensatory strategies. Frequency of Treatment: BID 5xs weekly Recommendations: Home with 24 hour supervision If this is the last note, consider this the discharge summary. * Sheryl Powell, THERMOSPRAY OPERATOR - 12/25/2023 10:55 AM CDT Physical Therapy [...] Occupational Therapy NOTE TYPE: OT TREATMENT ([facility] BED[facility]IDE SESSION) Patient's Name: Gunjan Gtz Jr. Age / Sex: 78 y.o. / male Room: [place] [id number] : 1945 Date: 12/25/23 Time In: 1000 [...] with delayed healing, subsequent encounter Clotting disorder ([facility]) ([facility]) Complex tear of medial meniscus of left knee as current injury Complex tear of medial meniscus of right knee as current injury Cramps of lower extremity Diverticulitis of colon Easy bruisability Fatigue Frequent urination Gastroesophageal reflux disease GERD Hypothyroidism Incontinence of urine Muscle weakness Osteoarthritis Osteoarthritis Peptic ulcer Peptic ulcer disease Seizures ([facility]) 1997 last seizure in 1997 SOB (shortness of breath) on exertion Subchondral insufficiency fracture of condyle of left femur (CMS/[facility]) ([facility]) Vertigo Vision changes Visual disturbance hx [...] and notified Physical Therapist / Physical Therapist Nailer Operator, name: Sheryl, of patient's location and functional [...] was presented with a AM/PM weekly pill urban planner and 3 simulated medications with various instructions on each pill bottle. Patient instructed to use the instructions on each pill bottle to fill in the urban planner for the entire week. Patient was [...] GOALS ANGI Conklin 12/25/23 * Madie Oneill, THERMOSPRAY OPERATOR - 12/24/2023 3:08 PM CDT Physical Therapy [...] fracture of condyle of left femur (CMS/HCC) ([facility]) Vertigo Vision changes Visual disturbance hx of double vision, corrective lenses Past Surgical History: Procedure Laterality Date CATARACT EXTRACTION, BILATERAL Bilateral 2018 HERNIA REPAIR 1979 Hiatal Hernia repair KNEE ARTHROSCOPY Bilateral THYROIDECTOMY 12/27/2019 Patient Active Problem List Diagnosis Primary osteoarthritis of both knees Subchondral insufficiency fracture of condyle of left femur (CMS/HCC) ([facility]) Closed fracture of left tibial plateau [...] Skin lesion of breast Edema Intermittent claudication ([facility]) Iron deficiency anemia Peripheral vascular disease (HCC) Pain due to total right knee replacement (CMS/HCC) ([facility]) Hamstring tendinitis of right thigh Quadriceps [...] Infrarenal abdominal aortic aneurysm (AAA) without rupture ([facility]) Acute CVA (cerebrovascular accident) ([facility]) Moderate malnutrition (CMS/HCC) TIME IN: 235 TIME [...] and goals. * Rosalia Marinelli OT - 12/24/2023 1:45 PM CDT Occupational Therapy NOTE TYPE: OT TREATMENT ([facility] DEPARTMENT SESSION) PATIENT'S NAME: Gunjan Gtz Jr. AGE / SEX: 78 y.o. / male ROOM: [place] [id number] : 1945 DATE: 12/24/23 TIME IN: 1345 TIME OUT: 1415 Patient Active Problem List Diagnosis Primary osteoarthritis of both knees Subchondral insufficiency fracture of condyle of left femur (CMS/HCC) ([facility]) Closed fracture of left tibial plateau [...] Skin lesion of breast Edema Intermittent claudication ([facility]) Iron deficiency anemia Peripheral vascular disease ([facility]) Pain due to total right knee replacement (CMS/HCC) ([facility]) Hamstring tendinitis of right thigh Quadriceps [...] Infrarenal abdominal aortic aneurysm (AAA) without rupture ([facility]) Acute CVA (cerebrovascular accident) ([facility]) Moderate malnutrition (CMS/[facility]) Past Medical History: Diagnosis Date Acute gastric ulcer without hemorrhage or perforation Ulcer, gastric, acute - (Added by TW Conv) Alzheimer's dementia ([facility]) Asthma Back pain Cataract Closed fracture of left tibial plateau with delayed healing Closed fracture of right tibial plateau with delayed healing Closed nondisplaced osteochondral fracture of left patella with delayed healing Closed osteochondral fracture of patella, right, with delayed healing, subsequent encounter Clotting disorder (CMS/HCC) ([facility]) Complex tear of medial meniscus of left knee as current injury Complex tear of medial meniscus of right knee as current injury Cramps of lower extremity Diverticulitis of colon Easy bruisability Fatigue Frequent urination Gastroesophageal reflux disease GERD Hypothyroidism Incontinence of urine Muscle weakness Osteoarthritis Osteoarthritis Peptic ulcer Peptic ulcer disease Seizures ([facility]) 1997 last seizure in 1997 SOB (shortness of breath) on exertion Subchondral insufficiency fracture of condyle of left femur (CMS/HCC) ([facility]) Vertigo Vision changes Visual disturbance hx [...] AND NOTIFIED Physical Therapist / Physical Therapist Nailer Operator, NAME: Marcia, OF PATIENT'S LOCATION AND FUNCTIONAL [...] Rosalia Marinelli OT 12/24/23 * Paresh Prieto, MUSIC SPECIALIST - 12/24/2023 1:39 PM CDT SPEECH LANGUAGE [...] Skin lesion of breast Edema Intermittent claudication ([facility]) Iron deficiency anemia Peripheral vascular disease ([facility]) Pain due to total right knee replacement (CMS/HCC) ([facility]) Hamstring tendinitis of right thigh Quadriceps [...] Infrarenal abdominal aortic aneurysm (AAA) without rupture ([facility]) Acute CVA (cerebrovascular accident) ([facility]) Moderate malnutrition (CMS/[facility]) Past Medical History: Diagnosis Date Acute gastric ulcer without hemorrhage or perforation Ulcer, gastric, acute - (Added by TW Conv) Alzheimer's dementia ([facility]) Asthma Back pain Cataract Closed fracture of left tibial plateau with delayed healing Closed fracture of right tibial plateau with delayed healing Closed nondisplaced osteochondral fracture of left patella with delayed healing Closed osteochondral fracture of patella, right, with delayed healing, subsequent encounter Clotting disorder (CMS/[facility]) ([facility]) Complex tear of medial meniscus of left knee as current injury Complex tear of medial meniscus of right knee as current injury Cramps of lower extremity Diverticulitis of colon Easy bruisability Fatigue Frequent urination Gastroesophageal reflux disease GERD Hypothyroidism Incontinence of urine Muscle weakness Osteoarthritis Osteoarthritis Peptic ulcer Peptic ulcer disease Seizures ([facility]) 1997 last seizure in 1997 SOB (shortness of breath) on exertion Subchondral insufficiency fracture of condyle of left femur (CMS/HCC) ([facility]) Vertigo Vision changes Visual disturbance hx [...] Problems (from Speech Therapy) Active Problems Problem: [facility] Start Date: 12/16/23 Goal Start Date Expected End Date End Date [facility] 1 12/16/23 12/23/23 -- Goal Details: Patient to perform short term memory tasks using compensatory strategies with 80% accuracy. Goal Start Date Expected End Date End Date [facility] 2 12/16/23 12/23/23 -- Goal Details: Patient to perform functional problem solving/reasoning tasks with 80% accuracy. Goal Start Date Expected End Date End Date [facility] 3 12/16/23 12/23/23 -- Goal Details: Patient to attend to left visual field 80% of the time given 2-3 verbal prompts. Goal Start Date Expected End Date End Date [facility] 4 12/16/23 12/23/23 -- Goal Details: Patient's [...] fracture of condyle of left femur (CMS/HCC) ([facility]) Closed fracture of left tibial plateau [...] Skin lesion of breast Edema Intermittent claudication ([facility]) Iron deficiency anemia Peripheral vascular disease ([facility]) Pain due to total right knee replacement (CMS/HCC) ([facility]) Hamstring tendinitis of right thigh Quadriceps weakness Idiopathic peripheral neuropathy Abnormality of gait and mobility Hx of total knee replacement, right Neuropathy (CMS/[facility]) 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 Biceps tendinitis of left upper extremity Tear of left glenoid labrum Coffee ground emesis Upper GI bleed Acquired hypothyroidism Acute blood loss anemia Lung nodule Nocturnal cough Hiatal hernia Infrarenal abdominal aortic aneurysm (AAA) without rupture ([facility]) Acute CVA (cerebrovascular accident) ([facility]) Moderate malnutrition (CMS/[facility]) Past Medical History: Diagnosis Date Acute gastric ulcer without hemorrhage or perforation Ulcer, gastric, acute - (Added by TW Conv) Alzheimer's dementia ([facility]) Asthma Back pain Cataract Closed fracture of left tibial plateau with delayed healing Closed fracture of right tibial plateau with delayed healing Closed nondisplaced osteochondral fracture of left patella with delayed healing Closed osteochondral fracture of patella, right, with delayed healing, subsequent encounter Clotting disorder (CMS/HCC) ([facility]) Complex tear of medial meniscus of left knee as current injury Complex tear of medial meniscus of right knee as current injury Cramps of lower extremity Diverticulitis of colon Easy bruisability Fatigue Frequent urination Gastroesophageal reflux disease GERD Hypothyroidism Incontinence of urine Muscle weakness Osteoarthritis Osteoarthritis Peptic ulcer Peptic ulcer disease Seizures ([facility]) 1997 last seizure in 1997 SOB (shortness of breath) on exertion Subchondral insufficiency fracture of condyle of left femur (CMS/HCC) ([facility]) Vertigo Vision changes Visual disturbance hx [...] Problems (from Speech Therapy) Active Problems Problem: MUSIC SPECIALIST [facility] Start Date: 12/16/23 Goal Start Date Expected End Date End Date [facility] 1 12/16/23 12/23/23 -- Goal Details: Patient to perform short term memory tasks using compensatory strategies with 80% accuracy. Goal Start Date Expected End Date End Date [facility] 2 12/16/23 12/23/23 -- Goal Details: Patient to perform functional problem solving/reasoning tasks with 80% accuracy. Goal Start Date Expected End Date End Date [facility] 3 12/16/23 12/23/23 -- Goal Details: Patient to attend to left visual field 80% of the time given 2-3 verbal prompts. Goal Start Date Expected End Date End Date [facility] 4 12/16/23 12/23/23 -- Goal Details: Patient's [...] of medications. OBJECTIVE: VITALS: Vitals: 12/23/23 0727 12/23/23204412/24/23 0705 12/24/23 0957 BP: 127/75 144/74 119/76 [...] dress:MOD LB dress: MAX Footwear: MAX Toileting:TOTAL MUSIC SPECIALIST Cognition: Mild/moderate cognitive deficits in short term memory and thought organization. MUSIC SPECIALIST Communication: Mild dysarthric speech. MUSIC SPECIALIST Swallowing: Swallow assessed by MUSIC SPECIALIST. Regular consistency diet/thin liquids recommended. Patientuses intermittent [...] endurance, speech, cognition, swallow PT OT eval MUSIC SPECIALIST eval Continue aspirin 81mg, rosuvastatin 40mg Ophtho [...] Code: Full Code Care discussed with Nursing, MUSIC SPECIALIST Reviewed vital signs, intake, bowel, and bladder [...] Case Management; Social Work; Therapeutic Recreation; SpeechTherapy; Satellite Manager Frequency and duration of therapies expect to [...] Expected intensity and frequency of Speech Therapy (MUSIC SPECIALIST): 1 hour per day per day over 5-7 days per week for the duration of length of stay FUNCTIONAL CHANGE: Spongebathing - maxA DISCHARGE PLANNING: Expected Discharge Date: TBD Equipment: TBD Family Training: SW to set up Education: Follow up Appointments: PCP 1-2 weeks Becky Montana MD Physical Medicine and Rehabilitation I can be reached from 7am-7pm through [employer]. Hospitalist computer education professor from 7pm-7am * Madie Oneill PTA - [...] subsequent encounter Clotting disorder (CMS/HCC) ([facility]) Complex tear of medial meniscus of left knee as current injury Complex tear of medial meniscus of right knee as current injury Cramps of lower extremity Diverticulitis of colon Easy bruisability Fatigue Frequent urination Gastroesophageal reflux disease GERD Hypothyroidism Incontinence of urine Muscle weakness Osteoarthritis Osteoarthritis Peptic ulcer Peptic ulcer disease Seizures ([facility]) 1997 last seizure in 1997 SOB (shortness of breath) on exertion Subchondral insufficiency fracture of condyle of left femur (CMS/HCC) ([facility]) Vertigo Vision changes Visual disturbance hx of double vision, corrective lenses Past Surgical History: Procedure Laterality Date CATARACT EXTRACTION, BILATERAL Bilateral 2018 HERNIA REPAIR 1979 Hiatal Hernia repair KNEE ARTHROSCOPY Bilateral THYROIDECTOMY 12/27/2019 Patient Active Problem List Diagnosis Primary osteoarthritis of both knees Subchondral insufficiency fracture of condyle of left femur (CMS/HCC) ([facility]) Closed fracture of left tibial plateau [...] Skin lesion of breast Edema Intermittent claudication ([facility]) Iron deficiency anemia Peripheral vascular disease ([facility]) Pain due to total right knee replacement (CMS/HCC) ([facility]) Hamstring tendinitis of right thigh Quadriceps [...] Infrarenal abdominal aortic aneurysm (AAA) without rupture ([facility]) Acute CVA (cerebrovascular accident) ([facility]) Moderate malnutrition (CMS/HCC) TIME IN: 1102 TIME [...] / Sex: 78 y.o. / male Room: [place] [address] : 1945 Date: 12/24/23 Time In: 1002 Time Out: 1102 Patient Active Problem List Diagnosis Primary osteoarthritis of both knees Subchondral insufficiency fracture of condyle of left femur (CMS/HCC) ([facility]) Closed fracture of left tibial plateau [...] Skin lesion of breast Edema Intermittent claudication ([facility]) Iron deficiency anemia Peripheral vascular disease ([facility]) Pain due to total right knee replacement (CMS/HCC) ([facility]) Hamstring tendinitis of right thigh Quadriceps [...] Infrarenal abdominal aortic aneurysm (AAA) without rupture ([facility]) Acute CVA (cerebrovascular accident) ([facility]) Moderate malnutrition (CMS/[facility]) Past Medical History: Diagnosis Date Acute gastric ulcer without hemorrhage or perforation Ulcer, gastric, acute - (Added by TW Conv) Alzheimer's dementia ([facility]) Asthma Back pain Cataract Closed fracture of left tibial plateau with delayed healing Closed fracture of right tibial plateau with delayed healing Closed nondisplaced osteochondral fracture of left patella with delayed healing Closed osteochondral fracture of patella, right, with delayed healing, subsequent encounter Clotting disorder (CMS/HCC) ([facility]) Complex tear of medial meniscus of left knee as current injury Complex tear of medial meniscus of right knee as current injury Cramps of lower extremity Diverticulitis of colon Easy bruisability Fatigue Frequent urination Gastroesophageal reflux disease GERD Hypothyroidism Incontinence of urine Muscle weakness Osteoarthritis Osteoarthritis Peptic ulcer Peptic ulcer disease Seizures ([facility]) 1997 last seizure in 1997 SOB [...] and notified Physical Therapist / Physical Therapist Nailer Operator, name: Marcia, of patient's location and functional [...] AND GOALS Rosalia Marinelli OT 12/24/23 * aMdie Oneill PTA - 12/23/2023 2:07 PM CDT Physical Therapy [...] subsequent encounter Clotting disorder (CMS/HCC) ([facility]) Complex tear of medial meniscus of left knee as current injury Complex tear of medial meniscus of right knee as current injury Cramps of lower extremity Diverticulitis of colon Easy bruisability Fatigue Frequent urination Gastroesophageal reflux disease GERD Hypothyroidism Incontinence of urine Muscle weakness Osteoarthritis Osteoarthritis Peptic ulcer Peptic ulcer disease Seizures ([facility]) 1997 last seizure in 1997 SOB (shortness of breath) on exertion Subchondral insufficiency fracture of condyle of left femur (CMS/HCC) ([facility]) Vertigo Vision changes Visual disturbance hx of double vision, corrective lenses Past Surgical History: Procedure Laterality Date CATARACT EXTRACTION, BILATERAL Bilateral 2018 HERNIA REPAIR 1979 Hiatal Hernia repair KNEE ARTHROSCOPY Bilateral THYROIDECTOMY 12/27/2019 Patient Active Problem List Diagnosis Primary osteoarthritis of both knees Subchondral insufficiency fracture of condyle of left femur (CMS/HCC) ([facility]) Closed fracture of left tibial plateau [...] Skin lesion of breast Edema Intermittent claudication ([facility]) Iron deficiency anemia Peripheral vascular disease ([facility]) Pain due to total right knee replacement (CMS/HCC) ([facility]) Hamstring tendinitis of right thigh Quadriceps [...] Infrarenal abdominal aortic aneurysm (AAA) without rupture ([facility]) Acute CVA (cerebrovascular accident) ([facility]) Moderate malnutrition (CMS/HCC) TIME IN: 230 TIME [...] W/C vs rasheed-cane. Improved weight shifting during final transfer and MIN assist with rasheed-aide Ambulation: transfers only Stairs: NA Wheelchair management & propulsion: NT TREATMENT: Patient performs two bouts of weight shifting at rasheed-bar with MOD assist for sequencing and timing. [...] / SEX: 78 y.o. / male ROOM: [place] [address] : 1945 DATE: 12/23/23 TIME IN: 1335 TIME OUT: 1413 Patient Active Problem List Diagnosis Primary osteoarthritis of both knees Subchondral insufficiency fracture of condyle of left femur (CMS/HCC) ([facility]) Closed fracture of left tibial plateau [...] Skin lesion of breast Edema Intermittent claudication ([facility]) Iron deficiency anemia Peripheral vascular disease ([facility]) Pain due to total right knee replacement (CMS/HCC) ([facility]) Hamstring tendinitis of right thigh Quadriceps [...] Infrarenal abdominal aortic aneurysm (AAA) without rupture ([facility]) Acute CVA (cerebrovascular accident) ([facility]) Moderate malnutrition (CMS/HCC) Past Medical History: Diagnosis Date Acute gastric ulcer without hemorrhage or perforation Ulcer, gastric, acute - (Added by TW Conv) Alzheimer's dementia ([facility]) Asthma Back pain Cataract Closed fracture of left tibial plateau with delayed healing Closed fracture of right tibial plateau with delayed healing Closed nondisplaced osteochondral fracture of left patella with delayed healing Closed osteochondral fracture of patella, right, with delayed healing, subsequent encounter Clotting disorder (CMS/HCC) ([facility]) Complex tear of medial meniscus of left knee as current injury Complex tear of medial meniscus of right knee as current injury Cramps of lower extremity Diverticulitis of colon Easy bruisability Fatigue Frequent urination Gastroesophageal reflux disease GERD Hypothyroidism Incontinence of urine Muscle weakness Osteoarthritis Osteoarthritis Peptic ulcer Peptic ulcer disease Seizures ([facility]) 1997 last seizure in 1997 SOB [...] AND NOTIFIED Physical Therapist / Physical Therapist Nailer Operator, NAME: Marcia, OF PATIENT'S LOCATION AND FUNCTIONAL [...] Rosalia Marinelli OT 12/23/23 * Paresh Prieto, MUSIC SPECIALIST - 12/23/2023 12:53 PM CDT SPEECH LANGUAGE PATHOLOGY PROGRESS NOTE Patient's Name: Gunjan Gtz Jr. : 1945 Age: 78 y.o. Time In: 12:49 Time Out: 13:17 Patient Active Problem List Diagnosis Primary osteoarthritis of both knees Subchondral insufficiency fracture of condyle of left femur (CMS/HCC) ([facility]) Closed fracture of left tibial plateau [...] Skin lesion of breast Edema Intermittent claudication ([facility]) Iron deficiency anemia Peripheral vascular disease ([facility]) Pain due to total right knee replacement (CMS/HCC) ([facility]) Hamstring tendinitis of right thigh Quadriceps [...] Infrarenal abdominal aortic aneurysm (AAA) without rupture ([facility]) Acute CVA (cerebrovascular accident) ([facility]) Moderate malnutrition (CMS/[facility]) Past Medical History: Diagnosis Date Acute gastric ulcer without hemorrhage or perforation Ulcer, gastric, acute - (Added by TW Conv) Alzheimer's dementia ([facility]) Asthma Back pain Cataract Closed fracture of left tibial plateau with delayed healing Closed fracture of right tibial plateau with delayed healing Closed nondisplaced osteochondral fracture of left patella with delayed healing Closed osteochondral fracture of patella, right, with delayed healing, subsequent encounter Clotting disorder (CMS/HCC) ([facility]) Complex tear of medial meniscus of left knee as current injury Complex tear of medial meniscus of right knee as current injury Cramps of lower extremity Diverticulitis of colon Easy bruisability Fatigue Frequent urination Gastroesophageal reflux disease GERD Hypothyroidism Incontinence of urine Muscle weakness Osteoarthritis Osteoarthritis Peptic ulcer Peptic ulcer disease Seizures ([facility]) 1997 last seizure in 1997 SOB (shortness of breath) on exertion Subchondral insufficiency fracture of condyle of left femur (CMS/HCC) ([facility]) Vertigo Vision changes Visual disturbance hx [...] Problems (from Speech Therapy) Active Problems Problem: [facility] Start Date: 12/16/23 Goal Start Date Expected End Date End Date [facility] 1 12/16/23 12/23/23 -- Goal Details: Patient to perform short term memory tasks using compensatory strategies with 80% accuracy. Goal Start Date Expected End Date End Date [facility] 2 12/16/23 12/23/23 -- Goal Details: Patient to perform functional problem solving/reasoning tasks with 80% accuracy. Goal Start Date Expected End Date End Date [facility] 3 12/16/23 12/23/23 -- Goal Details: Patient to attend to left visual field 80% of the time given 2-3 verbal prompts. Goal Start Date Expected End Date End Date [facility] 4 12/16/23 12/23/23 -- Goal Details: Patient's speech to be 90% intelligible during conversational tasks utilizing compensatory strategies. Frequency of Treatment: BID, 5xs weekly Recommendations: Recommend home with 24 hour supervision at discharge. If this is the last note, consider this the discharge summary. * Paresh Prieto MUSIC SPECIALIST - 12/23/2023 12:52 PM CDT SPEECH LANGUAGE [...] fracture of condyle of left femur (CMS/HCC) ([facility]) Vertigo Vision changes Visual disturbance hx [...] Problems (from Speech Therapy) Active Problems Problem: [facility] Start Date: 12/16/23 Goal Start Date Expected End Date End Date [facility] 1 12/16/23 12/23/23 -- Goal Details: Patient to perform short term memory tasks using compensatory strategies with 80% accuracy. Goal Start Date Expected End Date End Date [facility] 2 12/16/23 12/23/23 -- Goal Details: Patient to perform functional problem solving/reasoning tasks with 80% accuracy. Goal Start Date Expected End Date End Date [facility] 3 12/16/23 12/23/23 -- Goal Details: Patient to attend to left visual field 80% of the time given 2-3 verbal prompts. Goal Start Date Expected End Date End Date [facility] 4 12/16/23 12/23/23 -- Goal Details: Patient's speech to be 90% intelligible during conversational tasks utilizing compensatory strategies. Frequency of Treatment: BID, 5xs weekly Recommendations: Recommend home with 24 hour supervision at discharge. If this is the last note, consider this the discharge summary. * Madie Oneill PTA - 12/23/2023 11:52 AM CDT Physical Therapy PT PROGRESS NOTE Gunjan Gtz Jr. 78 y.o. 1945 Past Medical History: Diagnosis Date Acute gastric ulcer without hemorrhage or perforation Ulcer, gastric, acute - (Added by TW Conv) Alzheimer's dementia ([facility]) Asthma Back pain Cataract Closed fracture of left tibial plateau with delayed healing Closed fracture of right tibial plateau with delayed healing Closed nondisplaced osteochondral fracture of left patella with delayed healing Closed osteochondral fracture of patella, right, with delayed healing, subsequent encounter Clotting disorder (CMS/HCC) ([facility]) Complex tear of medial meniscus of left knee as current injury Complex tear of medial meniscus of right knee as current injury Cramps of lower extremity Diverticulitis of colon Easy bruisability Fatigue Frequent urination Gastroesophageal reflux disease GERD Hypothyroidism Incontinence of urine Muscle weakness Osteoarthritis Osteoarthritis Peptic ulcer Peptic ulcer disease Seizures ([facility]) 1997 last seizure in 1997 SOB (shortness of breath) on exertion Subchondral insufficiency fracture of condyle of left femur (CMS/HCC) ([facility]) Vertigo Vision changes Visual disturbance hx of double vision, corrective lenses Past Surgical History: Procedure Laterality Date CATARACT EXTRACTION, BILATERAL Bilateral 2018 HERNIA REPAIR 1980 Hiatal Hernia repair KNEE ARTHROSCOPY Bilateral THYROIDECTOMY 12/27/2019 Patient Active Problem List Diagnosis Primary osteoarthritis of both knees Subchondral insufficiency fracture of condyle of left femur (CMS/HCC) ([facility]) Closed fracture of left tibial plateau [...] dress:MOD LB dress: MAX Footwear: MAX Toileting:TOTAL MUSIC SPECIALIST Cognition: Mild/moderate cognitive deficits in short term memory and thought organization. MUSIC SPECIALIST Communication: Mild dysarthric speech. MUSIC SPECIALIST Swallowing: Swallow assessed by MUSIC SPECIALIST. Regular consistency diet/thin liquids recommended. Patientuses intermittent [...] endurance, speech, cognition, swallow PT OT eval MUSIC SPECIALIST eval Continue aspirin 81mg, rosuvastatin 40mg Ophtho [...] Code: Full Code Care discussed with Nursing, MUSIC SPECIALIST Reviewed vital signs, intake, bowel, and bladder [...] Case Management; Social Work; Therapeutic Recreation; SpeechTherapy; Satellite Manager Frequency and duration of therapies expect to [...] Expected intensity and frequency of Speech Therapy (MUSIC SPECIALIST): 1 hour per day per day over 5-7 days per week for the duration of length of stay FUNCTIONAL CHANGE: DISCHARGE PLANNING: Expected Discharge Date: TBD Equipment: TBD Family Training: SW to set up Education: Follow up Appointments: PCP 1-2 weeks Becky Montana MD Physical Medicine and Rehabilitation I can be reached from 7am-7pm through [employer]. Hospitalist computer education professor from 7pm-7am * Rosalia Marinelli, OT - 12/23/2023 10:00 AM CDT Occupational Therapy NOTE TYPE: OT TREATMENT ([facility] BEDSIDE SESSION) Patient's Name: Gunjan Gtz JrMason Age / Sex: 78 y.o. / male Room: [place] [address] : 1945 Date: 12/23/23 Time In: 1000 Time Out: 1100 Patient Active Problem List Diagnosis Primary osteoarthritis of both knees Subchondral insufficiency fracture of condyle of left femur (CMS/HCC) ([facility]) Closed fracture of left tibial plateau [...] Skin lesion of breast Edema Intermittent claudication ([facility]) Iron deficiency anemia Peripheral vascular disease ([facility]) Pain due to total right knee replacement (CMS/HCC) ([facility]) Hamstring tendinitis of right thigh Quadriceps weakness Idiopathic peripheral neuropathy Abnormality of gait and mobility Hx of total knee replacement, right Neuropathy (CMS/[facility]) 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 Biceps tendinitis of left upper extremity Tear of left glenoid labrum Coffee ground emesis Upper GI bleed Acquired hypothyroidism Acute blood loss anemia Lung nodule Nocturnal cough Hiatal hernia Infrarenal abdominal aortic aneurysm (AAA) without rupture ([facility]) Acute CVA (cerebrovascular accident) ([facility]) Moderate malnutrition (CMS/[facility]) Past Medical History: Diagnosis Date Acute gastric ulcer without hemorrhage or perforation Ulcer, gastric, acute - (Added by TW Conv) Alzheimer's dementia ([facility]) Asthma Back pain Cataract Closed fracture of left tibial plateau with delayed healing Closed fracture of right tibial plateau with delayed healing Closed nondisplaced osteochondral fracture of left patella with delayed healing Closed osteochondral fracture of patella, right, with delayed healing, subsequent encounter Clotting disorder (CMS/HCC) ([facility]) Complex tear of medial meniscus of left knee as current injury Complex tear of medial meniscus of right knee as current injury Cramps of lower extremity Diverticulitis of colon Easy bruisability Fatigue Frequent urination Gastroesophageal reflux disease GERD Hypothyroidism Incontinence of urine Muscle weakness Osteoarthritis Osteoarthritis Peptic ulcer Peptic ulcer disease Seizures ([facility]) 1997 last seizure in 1997 SOB (shortness of breath) on exertion Subchondral insufficiency fracture of condyle of left femur (CMS/HCC) ([facility]) Vertigo Vision changes Visual disturbance hx [...] and notified Physical Therapist / Physical Therapist Nailer Operator, name: Marcia, of patient's location and functional [...] / SEX: 78 y.o. / male ROOM: [place] [address] : 1945 DATE: 12/22/23 TIME IN: 1336 [...] - (Added by TW Conv) Alzheimer's dementia ([facility]) Asthma Back pain Cataract Closed fracture of left tibial plateau with delayed healing Closed fracture of right tibial plateau with delayed healing Closed nondisplaced osteochondral fracture of left patella with delayed healing Closed osteochondral fracture of patella, right, with delayed healing, subsequent encounter Clotting disorder (CMS/HCC) ([facility]) Complex tear of medial meniscus of left knee as current injury Complex tear of medial meniscus of right knee as current injury Cramps of lower extremity Diverticulitis of colon Easy bruisability Fatigue Frequent urination Gastroesophageal reflux disease GERD Hypothyroidism Incontinence of urine Muscle weakness Osteoarthritis Osteoarthritis Peptic ulcer Peptic ulcer disease Seizures ([facility]) 1997 last seizure in 1997 SOB (shortness of breath) on exertion Subchondral insufficiency fracture of condyle of left femur (CMS/HCC) ([facility]) Vertigo Vision changes Visual disturbance hx [...] AND NOTIFIED Physical Therapist / Physical Therapist Nailer Operator, NAME: Marcia, OF PATIENT'S LOCATION AND FUNCTIONAL [...] Krystle Cruz OT 12/22/23 * Paresh Prieto, MUSIC SPECIALIST - 12/22/2023 2:17 PM CDT SPEECH LANGUAGE PATHOLOGY PROGRESS NOTE Patient's Name: Gunjan Gtz Jr. : 1945 Age: 78 y.o. Time In: 13:00 Time Out: 13:28 Patient Active Problem List Diagnosis Primary osteoarthritis of both knees Subchondral insufficiency fracture of condyle of left femur (CMS/[facility]) ([facility]) Closed fracture of left tibial plateau [...] Skin lesion of breast Edema Intermittent claudication ([facility]) Iron deficiency anemia Peripheral vascular disease ([facility]) Pain due to total right knee replacement (CMS/HCC) ([facility]) Hamstring tendinitis of right thigh Quadriceps [...] Infrarenal abdominal aortic aneurysm (AAA) without rupture ([facility]) Acute CVA (cerebrovascular accident) ([facility]) Moderate malnutrition (CMS/[facility]) Past Medical History: Diagnosis Date Acute gastric ulcer without hemorrhage or perforation Ulcer, gastric, acute - (Added by TW Conv) Alzheimer's dementia ([facility]) Asthma Back pain Cataract Closed fracture of left tibial plateau with delayed healing Closed fracture of right tibial plateau with delayed healing Closed nondisplaced osteochondral fracture of left patella with delayed healing Closed osteochondral fracture of patella, right, with delayed healing, subsequent encounter Clotting disorder (CMS/HCC) ([facility]) Complex tear of medial meniscus of left knee as current injury Complex tear of medial meniscus of right knee as current injury Cramps of lower extremity Diverticulitis of colon Easy bruisability Fatigue Frequent urination Gastroesophageal reflux disease GERD Hypothyroidism Incontinence of urine Muscle weakness Osteoarthritis Osteoarthritis Peptic ulcer Peptic ulcer disease Seizures ([facility]) 1997 last seizure in 1997 SOB (shortness of breath) on exertion Subchondral insufficiency fracture of condyle of left femur (CMS/HCC) ([facility]) Vertigo Vision changes Visual disturbance hx [...] Problems (from Speech Therapy) Active Problems Problem: MUSIC SPECIALIST Misc Start Date: 12/16/23 Goal Start Date Expected End Date End Date [facility] [place] 1 12/16/23 12/23/23 -- Goal Details: Patient to perform short term memory tasks using compensatory strategies with 80% accuracy. Goal Start Date Expected End Date End Date [facility] [place] 2 12/16/23 12/23/23 -- Goal Details: Patient to perform functional problem solving/reasoning tasks with 80% accuracy. Goal Start Date Expected End Date End Date [facility] [place] 3 12/16/23 12/23/23 -- Goal Details: Patient to attend to left visual field 80% of the time given 2-3 verbal prompts. Goal Start Date Expected End Date End Date [facility] [place] 4 12/16/23 12/23/23 -- Goal Details: Patient's speech to be 90% intelligible during conversational tasks utilizing compensatory strategies. Frequency of Treatment: BID, 5xs weekly Recommendations: Recommend home with 24 hour supervision If this is the last note, consider this the discharge summary. * Madie Oneill, THERMOSPRAY OPERATOR - 12/22/2023 1:11 PM CDT Physical Therapy [...] subsequent encounter Clotting disorder (CMS/HCC) ([facility]) Complex tear of medial meniscus of [...] to fit into shoe. PM: Trial of [employer] walk-on in either pair of shoes, unable [...] dress:MOD LB dress: MAX Footwear: MAX Toileting:TOTAL MUSIC SPECIALIST Cognition: Mild/moderate cognitive deficits in short term memory and thought organization. MUSIC SPECIALIST Communication: Mild dysarthric speech. MUSIC SPECIALIST Swallowing: Swallow assessed by MUSIC SPECIALIST. Regular consistency diet/thin liquids recommended. Patientuses intermittent [...] 81 mg, 81 mg, oral, Daily, Becky Montaan MD, 81 mg at 12/22/23 0850 calcium [...] PRN, Becky Montana MD, 8 mg at 12/21/23 2017 rosuvastatin ([employer]) tablet 40 mg, 40 mg, [...] endurance, speech, cognition, swallow PT OT eval MUSIC SPECIALIST eval Continue aspirin 81mg, rosuvastatin 40mg Ophtho [...] Case Management; Social Work; Therapeutic Recreation; SpeechTherapy; Satellite Manager Frequency and duration of therapies expect to [...] Expected intensity and frequency of Speech Therapy (MUSIC SPECIALIST): 1 hour per day per day over 5-7 days per week for the duration of length of stay FUNCTIONAL CHANGE: Sit to stand: MODA with hemicane DISCHARGE PLANNING: Expected Discharge Date: TBD Equipment: TBD Family Training: SW to set up Education: Follow up Appointments: PCP 1-2 weeks Becky Montana MD Physical Medicine and Rehabilitation I can be reached from 7am-7pm through [employer] chat. Hospitalist computer education professor from 7pm-7am * Krystle Cruz OT - 12/22/2023 10:26 AM CDT Images from the original note were not included. Occupational Therapy NOTE TYPE: OT TREATMENT ([facility] BEDSIDE SESSION) Patient's Name: Gunjan Gtz Jr. Age / Sex: 78 y.o. / male Room: [place] [address] : 1945 Date: 12/22/23 Time In: 1004 Time Out: 1103 Patient Active Problem List Diagnosis Primary osteoarthritis of both knees Subchondral insufficiency fracture of condyle of left femur (CMS/HCC) ([facility]) Closed fracture of left tibial plateau [...] - (Added by TW Conv) Alzheimer's dementia ([facility]) Asthma Back pain Cataract Closed fracture of left tibial plateau with delayed healing Closed fracture of right tibial plateau with delayed healing Closed nondisplaced osteochondral fracture of left patella with delayed healing Closed osteochondral fracture of patella, right, with delayed healing, subsequent encounter Clotting disorder (CMS/HCC) ([facility]) Complex tear of medial meniscus of left knee as current injury Complex tear of medial meniscus of right knee as current injury Cramps of lower extremity Diverticulitis of colon Easy bruisability Fatigue Frequent urination Gastroesophageal reflux disease GERD Hypothyroidism Incontinence of urine Muscle weakness Osteoarthritis Osteoarthritis Peptic ulcer Peptic ulcer disease Seizures ([facility]) 1997 last seizure in 1997 SOB (shortness of breath) on exertion Subchondral insufficiency fracture of condyle of left femur (CMS/HCC) ([facility]) Vertigo Vision changes Visual disturbance hx of double vision, corrective lenses Past Surgical History: Procedure Laterality Date CATARACT EXTRACTION, BILATERAL Bilateral 2018 HERNIA REPAIR 1979 Hiatal Hernia repair KNEE ARTHROSCOPY Bilateral THYROIDECTOMY 12/27/2019 Expand All Collapse All Occupational Therapy NOTE TYPE: OT TREATMENT ([facility] BEDSIDE SESSION) Patient's Name: Gunjan Gtz Jr. Age / Sex: 78 y.o. / male Room: [place] [address] : 1945 Date: 12/21/23 Time In: 1010 Time Out: 1100 Patient Active Problem List Diagnosis Primary osteoarthritis of both knees Subchondral insufficiency fracture of condyle of left femur (CMS/HCC) ([facility]) Closed fracture of left tibial plateau [...] Skin lesion of breast Edema Intermittent claudication ([facility]) Iron deficiency anemia Peripheral vascular disease ([facility]) Pain due to total right knee replacement (CMS/HCC) ([facility]) Hamstring tendinitis of right thigh Quadriceps [...] and notified Physical Therapist / Physical Therapist Nailer Operator, name: Marcia, of patient's location and functional [...] Krystle Cruz OT 12/22/23 * Paresh Prieto, MUSIC SPECIALIST - 12/22/2023 9:25 AM CDT SPEECH LANGUAGE PATHOLOGY PROGRESS NOTE Patient's Name: Gunjan Gtz JrMason : 1945 Age: 78 y.o. Time In: 8:33 Time Out: 9:00 Patient Active Problem List Diagnosis Primary osteoarthritis of both knees Subchondral insufficiency fracture of condyle of left femur (CMS/HCC) ([facility]) Closed fracture of left tibial plateau [...] Skin lesion of breast Edema Intermittent claudication ([facility]) Iron deficiency anemia Peripheral vascular disease ([facility]) Pain due to total right knee replacement (CMS/HCC) ([facility]) Hamstring tendinitis of right thigh Quadriceps [...] Infrarenal abdominal aortic aneurysm (AAA) without rupture ([facility]) Acute CVA (cerebrovascular accident) ([facility]) Moderate malnutrition (CMS/[facility]) Past Medical History: Diagnosis Date Acute gastric ulcer without hemorrhage or perforation Ulcer, gastric, acute - (Added by TW Conv) Alzheimer's dementia ([facility]) Asthma Back pain Cataract Closed fracture of left tibial plateau with delayed healing Closed fracture of right tibial plateau with delayed healing Closed nondisplaced osteochondral fracture of left patella with delayed healing Closed osteochondral fracture of patella, right, with delayed healing, subsequent encounter Clotting disorder (CMS/HCC) ([facility]) Complex tear of medial meniscus of left knee as current injury Complex tear of medial meniscus of right knee as current injury Cramps of lower extremity Diverticulitis of colon Easy bruisability Fatigue Frequent urination Gastroesophageal reflux disease GERD Hypothyroidism Incontinence of urine Muscle weakness Osteoarthritis Osteoarthritis Peptic ulcer Peptic ulcer disease Seizures ([facility]) 1997 last seizure in 1997 SOB (shortness of breath) on exertion Subchondral insufficiency fracture of condyle of left femur (CMS/HCC) ([facility]) Vertigo Vision changes Visual disturbance hx [...] Problems (from Speech Therapy) Active Problems Problem: MUSIC SPECIALIST [facility] Start Date: 12/16/23 Goal Start Date Expected End Date End Date [facility] 1 12/16/23 12/23/23 -- Goal Details: Patient to perform short term memory tasks using compensatory strategies with 80% accuracy. Goal Start Date Expected End Date End Date [facility] 2 12/16/23 12/23/23 -- Goal Details: Patient to perform functional problem solving/reasoning tasks with 80% accuracy. Goal Start Date Expected End Date End Date [facility] 3 12/16/23 12/23/23 -- Goal Details: Patient to attend to left visual field 80% of the time given 2-3 verbal prompts. Goal Start Date Expected End Date End Date [facility] 4 12/16/23 12/23/23 -- Goal Details: Patient's [...] / SEX: 78 y.o. / male ROOM: [place] [address] : 1945 DATE: 12/21/23 Multi-Disciplinary Problems (from Occupational Therapy) Active Problems Problem: OT [facility] Start Date: 12/16/23 Goal Start Date Expected End Date End Date [facility] 1 12/16/23 12/23/23 -- Goal Details: Patient will complete basic ADL routine including: bathing in shower, LE dressing, footwear, UB dressing, and grooming tasks with min assist and appropriate compensatory strategies. Goal Start Date Expected End Date End Date [facility] 2 12/16/23 12/23/23 -- Goal Details: Patient will complete simulated car transfer using appropriate device with min assist Goal Start Date Expected End Date End Date [facility] 3 12/16/23 12/23/23 -- Goal Details: Patient will complete toileting and toilet transfer with min assist and appropriate device. Goal Start Date Expected End Date End Date [facility] 4 12/16/23 12/23/23 -- Goal Details: Patient will complete functional/meaningful task in standing for 3-5 minutes with minassist for balance one time. Goal Start Date Expected End Date End Date [facility] 5 12/16/23 12/23/23 -- Goal Details: Patient will complete HEP (LUE SROM/RUE AROM) to improve BUE ROM/strength/endurance and ADL participation with min verbal cues 1 time. Goal Start Date Expected End Date End Date [facility] 6 12/16/23 12/23/23 -- Goal Details: Patient family/caregiver will attend one OT session and be aware of discharge needs/plans Goal Start Date Expected End Date End Date [facility] 7 12/16/23 12/23/23 -- Goal Details: Patient [...] OT 12/21/23 4:27 PM . * Madie Oneill PTA - 12/21/2023 2:58 PM CDT Physical Therapy [...] due to total right knee replacement (CMS/HCC) ([facility]) Hamstring tendinitis of right thigh Quadriceps [...] Infrarenal abdominal aortic aneurysm (AAA) without rupture ([facility]) Acute CVA (cerebrovascular accident) ([facility]) Moderate malnutrition (CMS/HCC) TIME IN: 1435 TIME [...] Wheelchair management & propulsion: 40' forward with rasheed-technique, SPV. TREATMENT: Patient performs the following seated [...] established deficits and goals. * Paresh Prieto, MUSIC SPECIALIST - 12/21/2023 2:41 PM CDT SPEECH LANGUAGE [...] due to total right knee replacement (CMS/HCC) ([facility]) Hamstring tendinitis of right thigh Quadriceps [...] Infrarenal abdominal aortic aneurysm (AAA) without rupture ([facility]) Acute CVA (cerebrovascular accident) ([facility]) Moderate malnutrition (CMS/HCC) Past Medical History: Diagnosis Date Acute gastric ulcer without hemorrhage or perforation Ulcer, gastric, acute - (Added by TW Conv) Alzheimer's dementia ([facility]) Asthma Back pain Cataract Closed fracture of left tibial plateau with delayed healing Closed fracture of right tibial plateau with delayed healing Closed nondisplaced osteochondral fracture of left patella with delayed healing Closed osteochondral fracture of patella, right, with delayed healing, subsequent encounter Clotting disorder ([facility]) ([facility]) Complex tear of medial meniscus of left knee as current injury Complex tear of medial meniscus of right knee as current injury Cramps of lower extremity Diverticulitis of colon Easy bruisability Fatigue Frequent urination Gastroesophageal reflux disease GERD Hypothyroidism Incontinence of urine Muscle weakness Osteoarthritis Osteoarthritis Peptic ulcer Peptic ulcer disease Seizures ([facility]) 1997 last seizure in 1997 SOB (shortness of breath) on exertion Subchondral insufficiency fracture of condyle of left femur (CMS/HCC) ([facility]) Vertigo Vision changes Visual disturbance hx [...] Problems (from Speech Therapy) Active Problems Problem: MUSIC SPECIALIST [facility] Start Date: 12/16/23 Goal Start Date Expected End Date End Date [facility] 1 12/16/23 12/23/23 -- Goal Details: Patient to perform short term memory tasks using compensatory strategies with 80% accuracy. Goal Start Date Expected End Date End Date [facility] 2 12/16/23 12/23/23 -- Goal Details: Patient to perform functional problem solving/reasoning tasks with 80% accuracy. Goal Start Date Expected End Date End Date [facility] 3 12/16/23 12/23/23 -- Goal Details: Patient to attend to left visual field 80% of the time given 2-3 verbal prompts. Goal Start Date Expected End Date End Date [facility] 4 12/16/23 12/23/23 -- Goal Details: Patient's [...] / SEX: 78 y.o. / male ROOM: [place] [address] : 1945 DATE: 12/21/23 TIME IN: 1340 TIME OUT: 1420 Patient Active Problem List Diagnosis Primary osteoarthritis of both knees Subchondral insufficiency fracture of condyle of left femur ([facility]/HCC) ([facility]) Closed fracture of left tibial plateau [...] Skin lesion of breast Edema Intermittent claudication ([facility]) Iron deficiency anemia Peripheral vascular disease ([facility]) Pain due to total right knee replacement (CMS/HCC) ([facility]) Hamstring tendinitis of right thigh Quadriceps [...] Infrarenal abdominal aortic aneurysm (AAA) without rupture ([facility]) Acute CVA (cerebrovascular accident) ([facility]) Moderate malnutrition (CMS/[facility]) Past Medical History: Diagnosis Date Acute gastric ulcer without hemorrhage or perforation Ulcer, gastric, acute - (Added by TW Conv) Alzheimer's dementia ([facility]) Asthma Back pain Cataract Closed fracture of left tibial plateau with delayed healing Closed fracture of right tibial plateau with delayed healing Closed nondisplaced osteochondral fracture of left patella with delayed healing Closed osteochondral fracture of patella, right, with delayed healing, subsequent encounter Clotting disorder (CMS/HCC) ([facility]) Complex tear of medial meniscus of left knee as current injury Complex tear of medial meniscus of right knee as current injury Cramps of lower extremity Diverticulitis of colon Easy bruisability Fatigue Frequent urination Gastroesophageal reflux disease GERD Hypothyroidism Incontinence of urine Muscle weakness Osteoarthritis Osteoarthritis Peptic ulcer Peptic ulcer disease Seizures ([facility]) 1997 last seizure in 1997 SOB (shortness of breath) on exertion Subchondral insufficiency fracture of condyle of left femur (CMS/HCC) ([facility]) Vertigo Vision changes Visual disturbance hx [...] AND NOTIFIED Physical Therapist / Physical Therapist Nailer Operator, NAME: aMrcia, OF PATIENT'S LOCATION AND FUNCTIONAL STATUS UPON [...] with history of GERD, PVD presented to [facility] on 12/07 with sudden left sided weakness. [...] BUN SERUM mg/dL 19 CREATININE mg/dL 1.25 [id number] mL/min/1.73 m2 59 CALCIUM mg/dL 9.0 ALBUMIN [...] 12/19/23 95.4 kg (210 lb 5.1 oz) 12/14/23 103.4 kg (228 lb) 12/08/23 [...] N/V/C/D. Reports difficulty with some chewing/pocketing food. MUSIC SPECIALIST following and working with Pt on this. [...] depth pinch but not ample Muscle Loss [place] Muscle: Slight depression Clavicle [...] and drink water throughout the day. Call [phone] to speak with a dietitian about any [...] endurance, speech, cognition, swallow PT OT eval MUSIC SPECIALIST eval Continue aspirin 81mg, rosuvastatin 40mg Ophtho [...] Code: Full Code Care discussed with Nursing, MUSIC SPECIALIST Reviewed vital signs, intake, bowel, and bladder [...] Case Management; Social Work; Therapeutic Recreation; SpeechTherapy; Satellite Manager Frequency and duration of therapies expect to [...] Expected intensity and frequency of Speech Therapy (MUSIC SPECIALIST): 1 hour per day per day over 5-7 days per week for the duration of length of stay FUNCTIONAL CHANGE: DISCHARGE PLANNING: Expected Discharge Date: TBD Equipment: TBD Family Training: SW to set up Education: Follow up Appointments: PCP 1-2 weeks Becky Montana MD Physical Medicine and Rehabilitation I can be reached from 7am-7pm through [employer] chat. Hospitalist computer education professor from 7pm-7am * Madie Oneill PTA - [...] without rupture (HCC) Acute CVA (cerebrovascular accident) ([facility]) Moderate malnutrition (CMS/HCC) TIME IN: 1103 TIME [...] Occupational Therapy NOTE TYPE: OT TREATMENT ([facility] BEDSIDE SESSION) Patient's Name: Gunjan Gtz Jr. Age / Sex: 78 y.o. / [id number] 1945 Date: 12/21/23 Time In: 1010 Time Out: 1100 Patient Active Problem List Diagnosis Primary osteoarthritis of both knees Subchondral insufficiency fracture of condyle of left femur (CMS/HCC) ([facility]) Closed fracture of left tibial plateau [...] Skin lesion of breast Edema Intermittent claudication ([facility]) Iron deficiency anemia Peripheral vascular disease (HCC) Pain due to total right knee replacement (CMS/HCC) ([facility]) Hamstring tendinitis of right thigh Quadriceps [...] Infrarenal abdominal aortic aneurysm (AAA) without rupture ([facility]) Acute CVA (cerebrovascular accident) ([facility]) Moderate malnutrition (CMS/[facility]) Past Medical History: Diagnosis Date Acute gastric ulcer without hemorrhage or perforation Ulcer, gastric, acute - (Added by TW Conv) Alzheimer's dementia ([facility]) Asthma Back pain Cataract Closed fracture of left tibial plateau with delayed healing Closed fracture of right tibial plateau with delayed healing Closed nondisplaced osteochondral fracture of left patella with delayed healing Closed osteochondral fracture of patella, right, with delayed healing, subsequent encounter Clotting disorder (CMS/HCC) ([facility]) Complex tear of medial meniscus of left knee as current injury Complex tear of medial meniscus of right knee as current injury Cramps of lower extremity Diverticulitis of colon Easy bruisability Fatigue Frequent urination Gastroesophageal reflux disease GERD Hypothyroidism Incontinence of urine Muscle weakness Osteoarthritis Osteoarthritis Peptic ulcer Peptic ulcer disease Seizures ([facility]) 1997 last seizure in 1997 SOB (shortness of breath) on exertion Subchondral insufficiency fracture of condyle of left femur (CMS/HCC) ([facility]) Vertigo Vision changes Visual disturbance hx [...] and notified Physical Therapist / Physical Therapist Nailer Operator, name: Marcia, of patient's location and functional [...] Rosalia Marinelli OT 12/21/23 * Paresh Prieto, MUSIC SPECIALIST - 12/21/2023 9:05 AM CDT SPEECH LANGUAGE [...] due to total right knee replacement (CMS/HCC) ([facility]) Hamstring tendinitis of right thigh Quadriceps [...] without rupture (HCC) Acute CVA (cerebrovascular accident) ([facility]) Moderate malnutrition (CMS/[facility]) Past Medical History: Diagnosis Date Acute gastric ulcer without hemorrhage or perforation Ulcer, gastric, acute - (Added by TW Conv) Alzheimer's dementia ([facility]) Asthma Back pain Cataract Closed fracture of left tibial plateau with delayed healing Closed fracture of right tibial plateau with delayed healing Closed nondisplaced osteochondral fracture of left patella with delayed healing Closed osteochondral fracture of patella, right, with delayed healing, subsequent encounter Clotting disorder (CMS/HCC) ([facility]) Complex tear of medial meniscus of left knee as current injury Complex tear of medial meniscus of right knee as current injury Cramps of lower extremity Diverticulitis of colon Easy bruisability Fatigue Frequent urination Gastroesophageal reflux disease GERD Hypothyroidism Incontinence of urine Muscle weakness Osteoarthritis Osteoarthritis Peptic ulcer Peptic ulcer disease Seizures ([facility]) 1997 last seizure in 1997 SOB (shortness of breath) on exertion Subchondral insufficiency fracture of condyle of left femur (CMS/HCC) ([facility]) Vertigo Vision changes Visual disturbance hx [...] Problems (from Speech Therapy) Active Problems Problem: [facility] Start Date: 12/16/23 Goal Start Date Expected End Date End Date [facility] 1 12/16/23 12/23/23 -- Goal Details: Patient to perform short term memory tasks using compensatory strategies with 80% accuracy. Goal Start Date Expected End Date End Date [facility] 2 12/16/23 12/23/23 -- Goal Details: Patient to perform functional problem solving/reasoning tasks with 80% accuracy. Goal Start Date Expected End Date End Date [facility] 3 12/16/23 12/23/23 -- Goal Details: Patient to attend to left visual field 80% of the time given 2-3 verbal prompts. Goal Start Date Expected End Date End Date [facility] 4 12/16/23 12/23/23 -- Goal Details: Patient's [...] subsequent encounter Clotting disorder (CMS/HCC) ([facility]) Complex tear of medial meniscus of [...] fracture of condyle of left femur (CMS/HCC) ([facility]) Vertigo Vision changes Visual disturbance hx of double vision, corrective lenses Past Surgical History: Procedure Laterality Date CATARACT EXTRACTION, BILATERAL Bilateral 2018 HERNIA REPAIR 1979 Hiatal Hernia repair KNEE ARTHROSCOPY Bilateral THYROIDECTOMY 12/27/2019 Patient Active Problem List Diagnosis Primary osteoarthritis of both knees Subchondral insufficiency fracture of condyle of left femur (CMS/HCC) ([facility]) Closed fracture of left tibial plateau [...] Skin lesion of breast Edema Intermittent claudication ([facility]) Iron deficiency anemia Peripheral vascular disease ([facility]) Pain due to total right knee replacement (CMS/HCC) ([facility]) Hamstring tendinitis of right thigh Quadriceps [...] Infrarenal abdominal aortic aneurysm (AAA) without rupture ([facility]) Acute CVA (cerebrovascular accident) ([facility]) Moderate malnutrition (CMS/HCC) TIME IN: 230 TIME OUT: 315 SUBJECTIVE My arm is cramping. Patient with c/o R arm cramps but agreeable and able to participate in and complete therapy. MENTAL STATUS/ORIENTATION: Alert and oriented x4 and Tired PAIN: Pre-therapy pain level: 3/10 Pain location: R arm / wrist Pain [...] / SEX: 78 y.o. / male ROOM: [place] [address] : 1945 DATE: 12/20/23 TIME IN: 1345 TIME OUT: 1417 Patient Active Problem List Diagnosis Primary osteoarthritis of both knees Subchondral insufficiency fracture of condyle of left femur (CMS/HCC) ([facility]) Closed fracture of left tibial plateau [...] Skin lesion of breast Edema Intermittent claudication ([facility]) Iron deficiency anemia Peripheral vascular disease ([facility]) Pain due to total right knee replacement (CMS/HCC) ([facility]) Hamstring tendinitis of right thigh Quadriceps [...] Infrarenal abdominal aortic aneurysm (AAA) without rupture ([facility]) Acute CVA (cerebrovascular accident) ([facility]) Moderate malnutrition (CMS/[facility]) Past Medical History: Diagnosis Date Acute gastric ulcer without hemorrhage or perforation Ulcer, gastric, acute - (Added by TW Conv) Alzheimer's dementia ([facility]) Asthma Back pain Cataract Closed fracture of left tibial plateau with delayed healing Closed fracture of right tibial plateau with delayed healing Closed nondisplaced osteochondral fracture of left patella with delayed healing Closed osteochondral fracture of patella, right, with delayed healing, subsequent encounter Clotting disorder (CMS/HCC) ([facility]) Complex tear of medial meniscus of left knee as current injury Complex tear of medial meniscus of right knee as current injury Cramps of lower extremity Diverticulitis of colon Easy bruisability Fatigue Frequent urination Gastroesophageal reflux disease GERD Hypothyroidism Incontinence of urine Muscle weakness Osteoarthritis Osteoarthritis Peptic ulcer Peptic ulcer disease Seizures ([facility]) 1997 last seizure in 1997 SOB (shortness of breath) on exertion Subchondral insufficiency fracture of condyle of left femur (CMS/HCC) ([facility]) Vertigo Vision changes Visual disturbance hx of double vision, corrective lenses Past Surgical History: Procedure Laterality Date CATARACT EXTRACTION, BILATERAL Bilateral 2018 HERNIA REPAIR 1979 Hiatal Hernia repair KNEE ARTHROSCOPY Bilateral THYROIDECTOMY 12/27/2019 PRECAUTIONS (INCLUDING WEIGHT-BEARING): Fall risk and Bed / chair alarm SUBJECTIVE: I can't wear the [place] pants without the [place] shirt THERAPY PAIN: PRE-THERAPY PAIN LEVEL: 0 [...] AND NOTIFIED Physical Therapist / Physical Therapist Nailer Operator, NAME: Marcia, OF PATIENT'S LOCATION AND FUNCTIONAL [...] AND GOALS Rosalia Marinelli OT 12/20/23 * Paresh Prieto, MUSIC SPECIALIST - 12/20/2023 12:46 PM CDT SPEECH LANGUAGE PATHOLOGY PROGRESS NOTE Patient's Name: Gunjan Gtz Jr. : 1945 Age: 78 y.o. Time In: 12:42 Time Out: 13:07 Patient Active Problem List Diagnosis Primary osteoarthritis of both knees Subchondral insufficiency fracture of condyle of left femur (CMS/HCC) ([facility]) Closed fracture of left tibial plateau [...] due to total right knee replacement (CMS/HCC) ([facility]) Hamstring tendinitis of right thigh Quadriceps [...] with delayed healing, subsequent encounter Clotting disorder ([facility]) ([facility]) Complex tear of medial meniscus of left knee as current injury Complex tear of medial meniscus of right knee as current injury Cramps of lower extremity Diverticulitis of colon Easy bruisability Fatigue Frequent urination Gastroesophageal reflux disease GERD Hypothyroidism Incontinence of urine Muscle weakness Osteoarthritis Osteoarthritis Peptic ulcer Peptic ulcer disease Seizures ([facility]) 1997 last seizure in 1997 SOB (shortness of breath) on exertion Subchondral insufficiency fracture of condyle of left femur (CMS/[facility]) ([facility]) Vertigo Vision changes Visual disturbance hx [...] Problems (from Speech Therapy) Active Problems Problem: MUSIC SPECIALIST Misc Start Date: 12/16/23 Goal Start Date Expected End Date End Date MUSIC SPECIALIST [place] - [facility] [place] 1 12/16/23 12/23/23 -- Goal Details: Patient to perform short term memory tasks using compensatory strategies with 80% accuracy. Goal Start Date Expected End Date End Date MUSIC SPECIALIST LT - [facility] [place] 2 12/16/23 12/23/23 -- Goal Details: Patient to perform functional problem solving/reasoning tasks with 80% accuracy. Goal Start Date Expected End Date End Date MUSIC SPECIALIST LTG - Misc 3 12/16/23 12/23/23 -- Goal Details: Patient to attend to left visual field 80% of the time given 2-3 verbal prompts. Goal Start Date Expected End Date End Date MUSIC SPECIALIST LTG - Misc 4 12/16/23 12/23/23 -- Goal Details: Patient's speech to be 90% intelligible during conversational tasks utilizing compensatory strategies. Frequency of Treatment: BID, 5xs weekly Recommendations: Recommend home with 24 hour supervision at discharge. If this is the last note, consider this the discharge summary. * Madie Oneill PTA - 12/20/2023 12:23 PM CDT Physical Therapy [...] subsequent encounter Clotting disorder (CMS/HCC) ([facility]) Complex tear of medial meniscus of [...] fracture of condyle of left femur (CMS/HCC) ([facility]) Vertigo Vision changes Visual disturbance hx of double vision, corrective lenses Past Surgical History: Procedure Laterality Date CATARACT EXTRACTION, BILATERAL Bilateral 2018 HERNIA REPAIR 1980 Hiatal Hernia repair KNEE ARTHROSCOPY Bilateral THYROIDECTOMY 12/27/2019 Patient Active Problem List Diagnosis Primary osteoarthritis of both knees Subchondral insufficiency fracture of condyle of left femur (CMS/HCC) ([facility]) Closed fracture of left tibial plateau [...] continues with significant forward weight shift when trying to advance R LE. Frequent verbal and tactile [...] Daily, Becky Montana MD, 40 mg at 12/20/23821 senna-docusate (PERICOLACE) 8.6-50 mg per tablet 1 [...] endurance, speech, cognition, swallow PT OT eval MUSIC SPECIALIST eval Continue aspirin 81mg, rosuvastatin 40mg Ophtho [...] miralax daily, pericolace bid prn, simethicone prn 3/8: dulcolax 10mg x1 Nausea: Start Zofran prn, [...] Case Management; Social Work; Therapeutic Recreation; SpeechTherapy; Satellite Manager Frequency and duration of therapies expect to [...] Expected intensity and frequency of Speech Therapy (MUSIC SPECIALIST): 1 hour per day per day over 5-7 days per week for the duration of length of stay FUNCTIONAL CHANGE: Sit to stand: modA DISCHARGE PLANNING: Expected Discharge Date: TBD Equipment: TBD Family Training: SW to set up Education: Follow up Appointments: PCP 1-2 weeks Becky Montana MD Physical Medicine and Rehabilitation I can be reached from 7am-7pm through [employer] chat. Hospitalist computer education professor from 7pm-7am * Paresh Prieto SLP - [...] Skin lesion of breast Edema Intermittent claudication ([facility]) Iron deficiency anemia Peripheral vascular disease ([facility]) Pain due to total right knee replacement (CMS/HCC) ([facility]) Hamstring tendinitis of right thigh Quadriceps [...] Infrarenal abdominal aortic aneurysm (AAA) without rupture ([facility]) Acute CVA (cerebrovascular accident) ([facility]) Moderate malnutrition ([facility]) Past Medical History: Diagnosis Date Acute gastric ulcer without hemorrhage or perforation Ulcer, gastric, acute - (Added by TW Conv) Alzheimer's dementia ([facility]) Asthma Back pain Cataract Closed fracture of left tibial plateau with delayed healing Closed fracture of right tibial plateau with delayed healing Closed nondisplaced osteochondral fracture of left patella with delayed healing Closed osteochondral fracture of patella, right, with delayed healing, subsequent encounter Clotting disorder (CMS/HCC) ([facility]) Complex tear of medial meniscus of left knee as current injury Complex tear of medial meniscus of right knee as current injury Cramps of lower extremity Diverticulitis of colon Easy bruisability Fatigue Frequent urination Gastroesophageal reflux disease GERD Hypothyroidism Incontinence of urine Muscle weakness Osteoarthritis Osteoarthritis Peptic ulcer Peptic ulcer disease Seizures ([facility]) 1997 last seizure in 1997 SOB (shortness of breath) on exertion Subchondral insufficiency fracture of condyle of left femur ([facility]/HCC) ([facility]) Vertigo Vision changes Visual disturbance hx of double vision, corrective lenses Past Surgical History: Procedure Laterality Date CATARACT EXTRACTION, BILATERAL Bilateral 2018 HERNIA REPAIR 1980 Hiatal Hernia repair KNEE ARTHROSCOPY Bilateral THYROIDECTOMY 12/27/2019 SUBJECTIVE MENTAL STATUS: Patient awake, resting in recliner. Uncomfortable in recliner. PCT and MUSIC SPECIALIST assisted patient with repositioning. PAIN: Pre Therapy [...] Problems (from Speech Therapy) Active Problems Problem: MUSIC SPECIALIST [facility] [place] Start Date: 12/16/23 Goal Start Date Expected End Date End Date [facility] - [facility] [place] 1 12/16/23 12/23/23 -- Goal Details: Patient to perform short term memory tasks using compensatory strategies with 80% accuracy. Goal Start Date Expected End Date End Date [facility] - [facility] [place] 2 12/16/23 12/23/23 -- Goal Details: Patient to perform functional problem solving/reasoning tasks with 80% accuracy. Goal Start Date Expected End Date End Date [facility] - [facility] [place] 3 12/16/23 12/23/23 -- Goal Details: Patient to attend to left visual field 80% of the time given 2-3 verbal prompts. Goal Start Date Expected End Date End Date [facility] - [facility] [place] 4 12/16/23 12/23/23 -- Goal Details: Patient's speech to be 90% intelligible during conversational tasks utilizing compensatory strategies. Frequency of Treatment: BID, 5xs weekly Recommendations: Recommend home with 24 hour supervision at discharge. If this is the last note, consider this the discharge summary. * Rosalia Marinelli, OT - 12/20/2023 10:00 AM CDT Occupational Therapy NOTE TYPE: OT TREATMENT ([facility] BEDSIDE SESSION) Patient's Name: Gunjan Gtz Jr. Age / Sex: 78 y.o. / [id number] 1945 Date: 12/20/23 Time In: 1000 [...] due to total right knee replacement (CMS/HCC) ([facility]) Hamstring tendinitis of right thigh Quadriceps [...] without rupture (HCC) Acute CVA (cerebrovascular accident) ([facility]) Moderate malnutrition (CMS/HCC) Past Medical History: Diagnosis Date Acute gastric ulcer without hemorrhage or perforation Ulcer, gastric, acute - (Added by TW Conv) Alzheimer's dementia ([facility]) Asthma Back pain Cataract Closed fracture [...] fracture of condyle of left femur (CMS/HCC) ([facility]) Vertigo Vision changes Visual disturbance hx [...] and notified Physical Therapist / Physical Therapist Nailer Operator, name: Marcia, of patient's location and functional [...] Educated patient on use of long handled hedge trimmer to thread pants, however patient with difficulty [...] AND GOALS Rosalia Marinelli, OT 12/20/23 * Tyrel Vasquez, THERMOSPRAY OPERATOR - 12/18/2023 3:52 PM CST Physical Therapy PT PROGRESS NOTE Gunjanshauna Gtz Jr. 78 y.o. 1945 Past Medical History: Diagnosis Date Acute gastric ulcer without hemorrhage or perforation Ulcer, gastric, acute - (Added by TW Conv) Alzheimer's dementia ([facility]) Asthma Back pain Cataract Closed fracture of left tibial plateau with delayed healing Closed fracture of right tibial plateau with delayed healing Closed nondisplaced osteochondral fracture of left patella with delayed healing Closed osteochondral fracture of patella, right, with delayed healing, subsequent encounter Clotting disorder (CMS/HCC) ([facility]) Complex tear of medial meniscus of left knee as current injury Complex tear of medial meniscus of right knee as current injury Cramps of lower extremity Diverticulitis of colon Easy bruisability Fatigue Frequent urination Gastroesophageal reflux disease GERD Hypothyroidism Incontinence of urine Muscle weakness Osteoarthritis Osteoarthritis Peptic ulcer Peptic ulcer disease Seizures ([facility]) 1997 last seizure in 1997 SOB (shortness of breath) on exertion Subchondral insufficiency fracture of condyle of left femur (CMS/HCC) ([facility]) Vertigo Vision changes Visual disturbance hx of double vision, corrective lenses Past Surgical History: Procedure Laterality Date CATARACT EXTRACTION, BILATERAL Bilateral 2018 HERNIA REPAIR 1979 Hiatal Hernia repair KNEE ARTHROSCOPY Bilateral THYROIDECTOMY 12/27/2019 Patient Active Problem List Diagnosis Primary osteoarthritis of both knees Subchondral insufficiency fracture of condyle of left femur (CMS/HCC) ([facility]) Closed fracture of left tibial plateau [...] Skin lesion of breast Edema Intermittent claudication ([facility]) Iron deficiency anemia Peripheral vascular disease ([facility]) Pain due to total right knee replacement (CMS/HCC) ([facility]) Hamstring tendinitis of right thigh Quadriceps [...] min assist and SLR's- Max assist Supine citizen [place] ball bilat bridges and citizen [place] ball bilat knee to chest for 10 [...] R hand placement. Pt confident ambulating with rashede aide; limited in distance due to fatigue and L knee discomfort. Barriers to learning: Physical and Cognitive Barriers to discharge: Unchanged from a.m Patient continues progressing toward previously set goals which remain appropriate at this time. PLAN Patient to be seen bid 5x/week to address previously established deficits and goals. LLER WORKER * Kay IsidroANGI - 12/18/2023 2:19 PM CST Occupational Therapy NOTE TYPE: OT TREATMENT ([facility] DEPARTMENT SESSION) PATIENT'S NAME: Gunjan Gtz Jr. AGE / SEX: 78 y.o. / male ROOM: [place] [id number] : 1945 DATE: 12/18/23 TIME IN: 9 [...] with delayed healing, subsequent encounter Clotting disorder (CMS/[facility]) ([facility]) Complex tear of medial meniscus of left knee as current injury Complex tear of medial meniscus of right knee as current injury Cramps of lower extremity Diverticulitis of colon Easy bruisability Fatigue Frequent urination Gastroesophageal reflux disease GERD Hypothyroidism Incontinence of urine Muscle weakness Osteoarthritis Osteoarthritis Peptic ulcer Peptic ulcer disease Seizures ([facility]) 1997 last seizure in 1997 SOB (shortness of breath) on exertion Subchondral insufficiency fracture of condyle of left femur (CMS/[facility]) ([facility]) Vertigo Vision changes Visual disturbance hx [...] AND NOTIFIED Physical Therapist / Physical Therapist Nailer Operator, NAME: Jeffrey, OF PATIENT'S LOCATION AND FUNCTIONAL [...] ESTABLISHED DEFICITS AND GOALS ANGI [facility] 12/18/23 LLER WORKER * Tyrel Vasquez, THERMOSPRAY OPERATOR - 12/18/2023 11:07 AM CST Physical Therapy PT PROGRESS NOTE Gunjan Gtz Jr. 78 y.o. 1945 Past Medical History: Diagnosis Date Acute gastric ulcer without hemorrhage or perforation Ulcer, gastric, acute - (Added by TW Conv) Alzheimer's dementia ([facility]) Asthma Back pain Cataract Closed fracture of left tibial plateau with delayed healing Closed fracture of right tibial plateau with delayed healing Closed nondisplaced osteochondral fracture of left patella with delayed healing Closed osteochondral fracture of patella, right, with delayed healing, subsequent encounter Clotting disorder (CMS/[facility]) ([facility]) Complex tear of medial meniscus of [...] fracture of condyle of left femur (CMS/HCC) ([facility]) Vertigo Vision changes Visual disturbance hx of double vision, corrective lenses Past Surgical History: Procedure Laterality Date CATARACT EXTRACTION, BILATERAL Bilateral 2018 HERNIA REPAIR 1980 Hiatal Hernia repair KNEE ARTHROSCOPY Bilateral THYROIDECTOMY 12/27/2019 Patient Active Problem List Diagnosis Primary osteoarthritis of both knees Subchondral insufficiency fracture of condyle of left femur (CMS/HCC) ([facility]) Closed fracture of left tibial plateau [...] and oriented x4 PAIN: Pre-therapy pain level: 5/10 Pain location: R shoulder Pain intervention: mobility Post-therapy pain level/response to intervention: 10 OBJECTIVE PRECAUTIONS: Fall risk APPEARANCE/POSTURE: Pt sitting [...] L TKE w/ R UE supported on rsaheed rail: Min assist of 1 for balance. [...] to address previously established deficits and goals. LLER WORKER * Kay Isidro COTA - 12/18/2023 10:06 AM CST Occupational Therapy NOTE TYPE: OT TREATMENT ([facility] SESSION) Patient's Name: Gunjan Gtz Jr. Age / Sex: 78 y.o. / male Room: [place] [id number] : 1945 Date: 12/18/23 Time In: 1006 Time Out: 1105 Patient Active Problem List Diagnosis Primary osteoarthritis of both knees Subchondral insufficiency fracture of condyle of left femur (CMS/HCC) ([facility]) Closed fracture of left tibial plateau [...] Skin lesion of breast Edema Intermittent claudication ([facility]) Iron deficiency anemia Peripheral vascular disease ([facility]) Pain due to total right knee replacement (CMS/HCC) ([facility]) Hamstring tendinitis of right thigh Quadriceps [...] Infrarenal abdominal aortic aneurysm (AAA) without rupture ([facility]) Acute CVA (cerebrovascular accident) ([facility]) Moderate malnutrition (CMS/[facility]) Past Medical History: Diagnosis Date Acute gastric ulcer without hemorrhage or perforation Ulcer, gastric, acute - (Added by TW Conv) Alzheimer's dementia ([facility]) Asthma Back pain Cataract Closed fracture of left tibial plateau with delayed healing Closed fracture of right tibial plateau with delayed healing Closed nondisplaced osteochondral fracture of left patella with delayed healing Closed osteochondral fracture of patella, right, with delayed healing, subsequent encounter Clotting disorder (CMS/HCC) ([facility]) Complex tear of medial meniscus of left knee as current injury Complex tear of medial meniscus of right knee as current injury Cramps of lower extremity Diverticulitis of colon Easy bruisability Fatigue Frequent urination Gastroesophageal reflux disease GERD Hypothyroidism Incontinence of urine Muscle weakness Osteoarthritis Osteoarthritis Peptic ulcer Peptic ulcer disease Seizures ([facility]) 1997 last seizure in 1997 SOB (shortness of breath) on exertion Subchondral insufficiency fracture of condyle of left femur (CMS/HCC) ([facility]) Vertigo Vision changes Visual disturbance hx [...] and notified Physical Therapist / Physical Therapist Nailer Operator, name: Jeffrey, of patient's location and functional [...] ESTABLISHED DEFICITS AND GOALS ANGI Villa 12/18/23 LLER WORKER * Madie Oneill PTA - 12/17/2023 4:12 [...] subsequent encounter Clotting disorder (CMS/HCC) ([facility]) Complex tear of medial meniscus of [...] fracture of condyle of left femur (CMS/HCC) ([facility]) Vertigo Vision changes Visual disturbance hx of double vision, corrective lenses Past Surgical History: Procedure Laterality Date CATARACT EXTRACTION, BILATERAL Bilateral 2018 HERNIA REPAIR 1979 Hiatal Hernia repair KNEE ARTHROSCOPY Bilateral THYROIDECTOMY 12/27/2019 Patient Active Problem List Diagnosis Primary osteoarthritis of both knees Subchondral insufficiency fracture of condyle of left femur (CMS/HCC) ([facility]) Closed fracture of left tibial plateau [...] due to total right knee replacement (CMS/HCC) ([facility]) Hamstring tendinitis of right thigh Quadriceps [...] without rupture (HCC) Acute CVA (cerebrovascular accident) ([facility]) Moderate malnutrition (CMS/HCC) TIME IN: 1435 TIME [...] to address previously established deficits and goals. LLER WORKER * Kay Isidro COTA - 12/17/2023 1:22 PM CST Occupational Therapy NOTE TYPE: OT TREATMENT ([facility] DEPARTMENT SESSION) PATIENT'S NAME: Gunjan Gtz Jr. AGE / SEX: 78 y.o. / male [id number] 1945 DATE: 12/17/23 TIME IN: 1324 [...] Skin lesion of breast Edema Intermittent claudication ([facility]) Iron deficiency anemia Peripheral vascular disease ([facility]) Pain due to total right knee replacement (CMS/HCC) ([facility]) Hamstring tendinitis of right thigh Quadriceps [...] Infrarenal abdominal aortic aneurysm (AAA) without rupture ([facility]) Acute CVA (cerebrovascular accident) ([facility]) Moderate malnutrition ([facility]) Past Medical History: Diagnosis Date Acute gastric ulcer without hemorrhage or perforation Ulcer, gastric, acute - (Added by TW Conv) Alzheimer's dementia ([facility]) Asthma Back pain Cataract Closed fracture of left tibial plateau with delayed healing Closed fracture of right tibial plateau with delayed healing Closed nondisplaced osteochondral fracture of left patella with delayed healing Closed osteochondral fracture of patella, right, with delayed healing, subsequent encounter Clotting disorder ([facility]/HCC) ([facility]) Complex tear of medial meniscus of left knee as current injury Complex tear of medial meniscus of right knee as current injury Cramps of lower extremity Diverticulitis of colon Easy bruisability Fatigue Frequent urination Gastroesophageal reflux disease GERD Hypothyroidism Incontinence of urine Muscle weakness Osteoarthritis Osteoarthritis Peptic ulcer Peptic ulcer disease Seizures ([facility]) 1997 last seizure in 1997 SOB (shortness of breath) on exertion Subchondral insufficiency fracture of condyle of left femur ([facility]/HCC) ([facility]) Vertigo Vision changes Visual disturbance hx [...] AND NOTIFIED Physical Therapist / Physical Therapist Nailer Operator, NAME: Marcia, OF PATIENT'S LOCATION AND FUNCTIONAL [...] ESTABLISHED DEFICITS AND GOALS ANGI Villa 12/17/23 LLER WORKER * Paresh Prieto, MUSIC SPECIALIST - 12/17/2023 12:28 PM CST SPEECH LANGUAGE PATHOLOGY PROGRESS NOTE Patient's Name: Gunjan Gtz . : 1945 Age: 78 y.o. Time In: 12:00 Time Out: 12:25 Patient Active Problem List Diagnosis Primary osteoarthritis of both knees Subchondral insufficiency fracture of condyle of left femur (CMS/HCC) ([facility]) Closed fracture of left tibial plateau [...] Skin lesion of breast Edema Intermittent claudication ([facility]) Iron deficiency anemia Peripheral vascular disease ([facility]) Pain due to total right knee replacement (CMS/HCC) ([facility]) Hamstring tendinitis of right thigh Quadriceps [...] Infrarenal abdominal aortic aneurysm (AAA) without rupture ([facility]) Acute CVA (cerebrovascular accident) ([facility]) Moderate malnutrition (CMS/[facility]) Past Medical History: Diagnosis Date Acute gastric ulcer without hemorrhage or perforation Ulcer, gastric, acute - (Added by TW Conv) Alzheimer's dementia ([facility]) Asthma Back pain Cataract Closed fracture of left tibial plateau with delayed healing Closed fracture of right tibial plateau with delayed healing Closed nondisplaced osteochondral fracture of left patella with delayed healing Closed osteochondral fracture of patella, right, with delayed healing, subsequent encounter Clotting disorder (CMS/HCC) ([facility]) Complex tear of medial meniscus of left knee as current injury Complex tear of medial meniscus of right knee as current injury Cramps of lower extremity Diverticulitis of colon Easy bruisability Fatigue Frequent urination Gastroesophageal reflux disease GERD Hypothyroidism Incontinence of urine Muscle weakness Osteoarthritis Osteoarthritis Peptic ulcer Peptic ulcer disease Seizures ([facility]) 1997 last seizure in 1997 SOB (shortness of breath) on exertion Subchondral insufficiency fracture of condyle of left femur (CMS/HCC) ([facility]) Vertigo Vision changes Visual disturbance hx [...] Problems (from Speech Therapy) Active Problems Problem: [facility] Start Date: 12/16/23 Goal Start Date Expected End Date End Date [facility] 1 12/16/23 12/23/23 -- Goal Details: Patient to perform short term memory tasks using compensatory strategies with 80% accuracy. Goal Start Date Expected End Date End Date [facility] 2 12/16/23 12/23/23 -- Goal Details: Patient to perform functional problem solving/reasoning tasks with 80% accuracy. Goal Start Date Expected End Date End Date [facility] 3 12/16/23 12/23/23 -- Goal Details: Patient to attend to left visual field 80% of the time given 2-3 verbal prompts. Goal Start Date Expected End Date End Date [facility] 4 12/16/23 12/23/23 -- Goal Details: Patient's speech to be 90% intelligible during conversational tasks utilizing compensatory strategies. Frequency of Treatment: BID, 5xs weekly Recommendations: Recommend home with 24 hour supervision at discharge with ongoing speech therapy services. If this is the last note, consider this the discharge summary. LLER WORKER * Madie Oneill, THERMOSPRAY OPERATOR - 12/17/2023 12:27 PM CST Physical Therapy PT PROGRESS NOTE Gunjan Gtz 78 y.o. 1945 Past Medical History: Diagnosis Date Acute gastric ulcer without hemorrhage or perforation Ulcer, gastric, acute - (Added by TW Conv) Alzheimer's dementia ([facility]) Asthma Back pain Cataract Closed fracture of left tibial plateau with delayed healing Closed fracture of right tibial plateau with delayed healing Closed nondisplaced osteochondral fracture of left patella with delayed healing Closed osteochondral fracture of patella, right, with delayed healing, subsequent encounter Clotting disorder (CMS/HCC) ([facility]) Complex tear of medial meniscus of left knee as current injury Complex tear of medial meniscus of right knee as current injury Cramps of lower extremity Diverticulitis of colon Easy bruisability Fatigue Frequent urination Gastroesophageal reflux disease GERD Hypothyroidism Incontinence of urine Muscle weakness Osteoarthritis Osteoarthritis Peptic ulcer Peptic ulcer disease Seizures ([facility]) 1997 last seizure in 1997 SOB (shortness of breath) on exertion Subchondral insufficiency fracture of condyle of left femur (CMS/HCC) ([facility]) Vertigo Vision changes Visual disturbance hx of double vision, corrective lenses Past Surgical History: Procedure Laterality Date CATARACT EXTRACTION, BILATERAL Bilateral 2018 HERNIA REPAIR 1979 Hiatal Hernia repair KNEE ARTHROSCOPY Bilateral THYROIDECTOMY 12/27/2019 Patient Active Problem List Diagnosis Primary osteoarthritis of both knees Subchondral insufficiency fracture of condyle of left femur (CMS/HCC) ([facility]) Closed fracture of left tibial plateau [...] (HCC) Iron deficiency anemia Peripheral vascular disease ([facility]) Pain due to total right knee [...] to address previously established deficits and goals. LLER WORKER * Becky Montana MD - 12/17/2023 11:22 [...] 12/15 Functional transfers: MAX-TOTAL OT Self Care: 3 Bathing: TOTAL Grooming: MAX UB dress:MAX LB [...] Daily, Becky Montana MD, 40 mg at 12/17/23837 senna-docusate (PERICOLACE) 8.6-50 mg per tablet 1 [...] endurance, speech, cognition, swallow PT OT eval MUSIC SPECIALIST eval Continue aspirin 81mg, rosuvastatin 40mg HTN: [...] Case Management; Social Work; Therapeutic Recreation; SpeechTherapy; Satellite Manager Frequency and duration of therapies expect to [...] Expected intensity and frequency of Speech Therapy (MUSIC SPECIALIST): 1 hour per day per day over 5-7 days per week for the duration of length of stay FUNCTIONAL CHANGE: Spongebathing - dependent DISCHARGE PLANNING: Expected Discharge Date: TBD Equipment: TBD Family Training: SW to set up Education: Follow up Appointments: PCP 1-2 weeks Becky Montana MD Physical Medicine and Rehabilitation I can be reached from 7am-7pm through [employer]. Hospitalist computer education professor from 7pm-7am LLER WORKER LLER WORKER * Paresh Prieto, MUSIC SPECIALIST - 12/17/2023 10:02 AM CST SPEECH LANGUAGE PATHOLOGY PROGRESS NOTE Patient's Name: Gunjan Gtz Jr. : 1945 Age: 78 y.o. Time In: 9:20 Time Out: 9:50 Patient Active Problem List Diagnosis Primary osteoarthritis of both knees Subchondral insufficiency fracture of condyle of left femur (CMS/HCC) ([facility]) Closed fracture of left tibial plateau [...] Infrarenal abdominal aortic aneurysm (AAA) without rupture ([facility]) Acute CVA (cerebrovascular accident) ([facility]) Moderate malnutrition (CMS/HCC) Past Medical History: Diagnosis Date Acute gastric ulcer without hemorrhage or perforation Ulcer, gastric, acute - (Added by TW Conv) Alzheimer's dementia ([facility]) Asthma Back pain Cataract Closed fracture of left tibial plateau with delayed healing Closed fracture of right tibial plateau with delayed healing Closed nondisplaced osteochondral fracture of left patella with delayed healing Closed osteochondral fracture of patella, right, with delayed healing, subsequent encounter Clotting disorder (CMS/HCC) ([facility]) Complex tear of medial meniscus of left knee as current injury Complex tear of medial meniscus of right knee as current injury Cramps of lower extremity Diverticulitis of colon Easy bruisability Fatigue Frequent urination Gastroesophageal reflux disease GERD Hypothyroidism Incontinence of urine Muscle weakness Osteoarthritis Osteoarthritis Peptic ulcer Peptic ulcer disease Seizures ([facility]) 1997 last seizure in 1997 SOB (shortness of breath) on exertion Subchondral insufficiency fracture of condyle of left femur (CMS/HCC) ([facility]) Vertigo Vision changes Visual disturbance hx [...] Problems (from Speech Therapy) Active Problems Problem: MUSIC SPECIALIST [facility] Start Date: 12/16/23 Goal Start Date Expected End Date End Date [facility] 1 12/16/23 12/23/23 -- Goal Details: Patient to perform short term memory tasks using compensatory strategies with 80% accuracy. Goal Start Date Expected End Date End Date [facility] 2 12/16/23 12/23/23 -- Goal Details: Patient to perform functional problem solving/reasoning tasks with 80% accuracy. Goal Start Date Expected End Date End Date [facility] 3 12/16/23 12/23/23 -- Goal Details: Patient to attend to left visual field 80% of the time given 2-3 verbal prompts. Goal Start Date Expected End Date End Date [facility] 4 12/16/23 12/23/23 -- Goal Details: Patient's speech to be 90% intelligible during conversational tasks utilizing compensatory strategies. Frequency of Treatment: BID, 5xs weekly Recommendations: Recommend home with 24 hour supervision at discharge. If this is the last note, consider this the discharge summary. LLER WORKER * Kay Isidro COTA - 12/17/2023 7:20 AM CST Occupational Therapy NOTE TYPE: OT TREATMENT ([facility] SESSION) Patient's Name: Gunjan Gtz JrMason Age / Sex: 78 y.o. / male [id number] 1945 Date: 12/17/23 Time In: 720 Time Out: 835 Patient Active Problem List Diagnosis Primary osteoarthritis of both knees Subchondral insufficiency fracture of condyle of left femur (CMS/HCC) ([facility]) Closed fracture of left tibial plateau [...] due to total right knee replacement (CMS/HCC) ([facility]) Hamstring tendinitis of right thigh Quadriceps [...] without rupture (HCC) Acute CVA (cerebrovascular accident) ([facility]) Past Medical History: Diagnosis Date Acute gastric ulcer without hemorrhage or perforation Ulcer, gastric, acute - (Added by TW Conv) Alzheimer's dementia ([facility]) Asthma Back pain Cataract Closed fracture of left tibial plateau with delayed healing Closed fracture of right tibial plateau with delayed healing Closed nondisplaced osteochondral fracture of left patella with delayed healing Closed osteochondral fracture of patella, right, with delayed healing, subsequent encounter Clotting disorder (CMS/HCC) ([facility]) Complex tear of medial meniscus of left knee as current injury Complex tear of medial meniscus of right knee as current injury Cramps of lower extremity Diverticulitis of colon Easy bruisability Fatigue Frequent urination Gastroesophageal reflux disease GERD Hypothyroidism Incontinence of urine Muscle weakness Osteoarthritis Osteoarthritis Peptic ulcer Peptic ulcer disease Seizures ([facility]) 1997 last seizure in 1997 SOB (shortness of breath) on exertion Subchondral insufficiency fracture of condyle of left femur (CMS/HCC) ([facility]) Vertigo Vision changes Visual disturbance hx [...] session: Yes Completed patient handoff and notified STATISTICAL SECRETARY / RN, name: Gela, of patient's location [...] ESTABLISHED DEFICITS AND GOALS ANGI Villa 12/17/23 LLER WORKER * Madie Oneill PTA - 12/16/2023 2:42 PM CST Physical Therapy PT PROGRESS NOTE Gunjan Gtz Jr. 78 y.o. 1945 Past Medical History: Diagnosis Date Acute gastric ulcer without hemorrhage or perforation Ulcer, gastric, acute - (Added by KIP Conv) Alzheimer's dementia ([facility]) Asthma Back pain Cataract Closed fracture of left tibial plateau with delayed healing Closed fracture of right tibial plateau with delayed healing Closed nondisplaced osteochondral fracture of left patella with delayed healing Closed osteochondral fracture of patella, right, with delayed healing, subsequent encounter Clotting disorder (CMS/HCC) ([facility]) Complex tear of medial meniscus of left knee as current injury Complex tear of medial meniscus of right knee as current injury Cramps of lower extremity Diverticulitis of colon Easy bruisability Fatigue Frequent urination Gastroesophageal reflux disease GERD Hypothyroidism Incontinence of urine Muscle weakness Osteoarthritis Osteoarthritis Peptic ulcer Peptic ulcer disease Seizures ([facility]) 1997 last seizure in 1997 SOB (shortness of breath) on exertion Subchondral insufficiency fracture of condyle of left femur (CMS/HCC) ([facility]) Vertigo Vision changes Visual disturbance hx of double vision, corrective lenses Past Surgical History: Procedure Laterality Date CATARACT EXTRACTION, BILATERAL Bilateral 2018 HERNIA REPAIR 1979 Hiatal Hernia repair KNEE ARTHROSCOPY Bilateral THYROIDECTOMY 12/27/2019 Patient Active Problem List Diagnosis Primary osteoarthritis of both knees Subchondral insufficiency fracture of condyle of left femur (CMS/HCC) ([facility]) Closed fracture of left tibial plateau [...] Skin lesion of breast Edema Intermittent claudication ([facility]) Iron deficiency anemia Peripheral vascular disease ([facility]) Pain due to total right knee replacement (CMS/HCC) ([facility]) Hamstring tendinitis of right thigh Quadriceps [...] Infrarenal abdominal aortic aneurysm (AAA) without rupture ([facility]) Acute CVA (cerebrovascular accident) ([facility]) TIME IN: 235 TIME OUT: 325 SUBJECTIVE [...] to address previously established deficits and goals. LLER WORKER * Paresh Prieto, MUSIC SPECIALIST - 12/16/2023 1:52 PM CST SPEECH LANGUAGE [...] Skin lesion of breast Edema Intermittent claudication ([facility]) Iron deficiency anemia Peripheral vascular disease ([facility]) Pain due to total right knee replacement ([facility]/HCC) ([facility]) Hamstring tendinitis of right thigh Quadriceps weakness Idiopathic peripheral neuropathy Abnormality of gait and mobility Hx of total knee replacement, right Neuropathy (CMS/[facility]) 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 Biceps tendinitis of left upper extremity Tear of left glenoid labrum Coffee ground emesis Upper GI bleed Acquired hypothyroidism Acute blood loss anemia Lung nodule Nocturnal cough Hiatal hernia Infrarenal abdominal aortic aneurysm (AAA) without rupture ([facility]) Acute CVA (cerebrovascular accident) ([facility]) Past Medical History: Diagnosis Date Acute gastric ulcer without hemorrhage or perforation Ulcer, gastric, acute - (Added by TW Conv) Alzheimer's dementia ([facility]) Asthma Back pain Cataract Closed fracture of left tibial plateau with delayed healing Closed fracture of right tibial plateau with delayed healing Closed nondisplaced osteochondral fracture of left patella with delayed healing Closed osteochondral fracture of patella, right, with delayed healing, subsequent encounter Clotting disorder ([facility]) ([facility]) Complex tear of medial meniscus of left knee as current injury Complex tear of medial meniscus of right knee as current injury Cramps of lower extremity Diverticulitis of colon Easy bruisability Fatigue Frequent urination Gastroesophageal reflux disease GERD Hypothyroidism Incontinence of urine Muscle weakness Osteoarthritis Osteoarthritis Peptic ulcer Peptic ulcer disease Seizures ([facility]) 1997 last seizure in 1997 SOB (shortness of breath) on exertion Subchondral insufficiency fracture of condyle of left femur (CMS/HCC) ([facility]) Vertigo Vision changes Visual disturbance hx [...] PRECAUTIONS: Fall precautions SWALLOWING: Swallow assessed by MUSIC SPECIALIST. Regular consistency diet/thin liquids recommended. Patient's reports patient having difficulty with food getting stuck on left side of mouth. CAMERA ASSEMBLER changed dietto mechanical soft/thin liquids. Patient with [...] Problems (from Speech Therapy) Active Problems Problem: MUSIC SPECIALIST [facility] Start Date: 12/16/23 Goal Start Date Expected End Date End Date [facility] 1 12/16/23 12/23/23 -- Goal Details: Patient to perform short term memory tasks using compensatory strategies with 80% accuracy. Goal Start Date Expected End Date End Date [facility] 2 12/16/23 12/23/23 -- Goal Details: Patient to perform functional problem solving/reasoning tasks with 80% accuracy. Goal Start Date Expected End Date End Date [facility] 3 12/16/23 12/23/23 -- Goal Details: Patient to attend to left visual field 80% of the time given 2-3 verbal prompts. Goal Start Date Expected End Date End Date [facility] 4 12/16/23 12/23/23 -- Goal Details: Patient's speech to be 90% intelligible during conversational tasks utilizing compensatory strategies. Frequency of Treatment: BID, 5xs weekly Recommendations: Recommend home with 24 hour supervision at discharge. If this is the last note, consider this the discharge summary. LLER WORKER * Rosalia Marinelli, OT - 12/16/2023 1:43 PM CST Occupational Therapy NOTE / SESSION TYPE: OT EVALUATION (COMPLETION) PATIENT'S NAME: Gunjan Gtz Jr. AGE / SEX: 78 y.o. / male [id number] 1945 DATE: 12/16/23 TIME IN: 1343 TIME OUT: 1413 Patient Active Problem List Diagnosis Primary osteoarthritis of both knees Subchondral insufficiency fracture of condyle of left femur (CMS/HCC) ([facility]) Closed fracture of left tibial plateau [...] Skin lesion of breast Edema Intermittent claudication ([facility]) Iron deficiency anemia Peripheral vascular disease ([facility]) Pain due to total right knee replacement (CMS/HCC) ([facility]) Hamstring tendinitis of right thigh Quadriceps [...] Infrarenal abdominal aortic aneurysm (AAA) without rupture ([facility]) Acute CVA (cerebrovascular accident) ([facility]) Past Medical History: Diagnosis Date Acute gastric ulcer without hemorrhage or perforation Ulcer, gastric, acute - (Added by TW Conv) Alzheimer's dementia ([facility]) Asthma Back pain Cataract Closed fracture of left tibial plateau with delayed healing Closed fracture of right tibial plateau with delayed healing Closed nondisplaced osteochondral fracture of left patella with delayed healing Closed osteochondral fracture of patella, right, with delayed healing, subsequent encounter Clotting disorder (CMS/HCC) ([facility]) Complex tear of medial meniscus of left knee as current injury Complex tear of medial meniscus of right knee as current injury Cramps of lower extremity Diverticulitis of colon Easy bruisability Fatigue Frequent urination Gastroesophageal reflux disease GERD Hypothyroidism Incontinence of urine Muscle weakness Osteoarthritis Osteoarthritis Peptic ulcer Peptic ulcer disease Seizures ([facility]) 1997 last seizure in 1997 SOB [...] AND NOTIFIED Physical Therapist / Physical Therapist Nailer Operator, NAME: Marcia, OF PATIENT'S LOCATION AND FUNCTIONAL STATUS UPON COMPLETION OF SESSION COGNITIVE / PERCEPTUAL: Alert and oriented to conversation (Short Blessed Test) Answer Max Error Error Score Weight Sub-Score 1. What year is it now? 2023 1 0 4 0 2. What month is it now? Repeat this phrase after me and remember it. Nigel Williamson [address] [place] [address]. Number of trialto learning 1 max 3 [...] asked you to remember. Nigel Williamson [address] [facility]. [x] Nigel [x] Clay [x]42 [][facility] [x]Basco 5 1 2 3 A weighted error score of 9 or greater indicates a need for further assessment. Total Weighted Error Score = 3 (a) Scoring 0 = No errors, 1 = 1 error, 2 = 2 or more errors, (b) An answer of either [facility] or [facility] is acceptable. BIMS: COMPLETED - PLEASE REFER [...] without resistance, 0/5 shoulder/elbow/wrist/digits HAND DOMINANCE: Right NATIONAL ACCOUNT DIRECTOR STRENGTH (RIGHT): TRIAL 1: 41 TRIAL 2: 35 TRIAL 3: 36 AVERAGE: 37.3 POUND(S) NATIONAL ACCOUNT DIRECTOR STRENGTH (LEFT): TRIAL 1: 0 TRIAL 2: [...] LOCATION, RECOMMENDED LEVEL OF SUPERVISION AND ARRANGEMENTS CAMP COORDINATOR GOALS: PLEASE REFER TO INITIATION OF OT EVALUATION COMPLETED EARLIER THIS DATE FOR CAMP COORDINATOR GOALS Rosalia Marinelli OT 12/16/23 LLER WORKER * Becky Montana MD - 12/16/2023 12:08 PM CST INPATIENT REHABILITATION DAILY PROGRESS NOTE CHIEF COMPLAINT: right posterior limb internal capsule infarct SUBJECTIVE: Slept well last night. Denies pain. OBJECTIVE: VITALS: Vitals: 12/15/23 1451 12/15/23 1900 12/16/23 0620 12/16/23 0827 BP: 118/68 145/78 129/86 BP Location: Right [...] 40 mg, 40 mg, subcutaneous, Daily-2100, Becky Montana, MD fluticasone furoate-vilanteroL (BREO ELLIPTA) 100-25 mcg/dose [...] Jl Montana MD, 40 mg at 12/16/23 08 polyethylene glycol (MIRALAX) packet 17 g, 17 g, oral, Daily, Becky Montana MD, 17 gat 12/16/23 0854 ramelteon (ROZEREM) tablet 8 mg, 8 mg, oral, Nightly PRN, Becky Montana MD rosuvastatin (CRESTOR) tablet 40 mg, 40 mg, oral, Daily, Becky Montana MD, 40 mg at 12/16/23 0854 [...] endurance, speech, cognition, swallow PT OT eval MUSIC SPECIALIST eval Continue aspirin 81mg, rosuvastatin 40mg HTN: [...] Case Management; Social Work; Therapeutic Recreation; SpeechTherapy; Satellite Manager Frequency and duration of therapies expect to [...] Expected intensity and frequency of Speech Therapy (MUSIC SPECIALIST): 1 hour per day per day over 5-7 days per week for the duration of length of stay FUNCTIONAL CHANGE: Therapy evals today DISCHARGE PLANNING: Expected Discharge Date: TBD Equipment: TBD Family Training: SW to set up Education: Follow up Appointments: PCP 1-2 weeks Becky Montana MD Physical Medicine and Rehabilitation I can be reached from 7am-7pm through [employer]. Hospitalist computer education professor from 7pm-7am LLER WORKER * Vanessa Zaman, PT - 12/16/2023 11:10 AM CST Physical Therapy INITIAL EVALUATION PATIENT'S NAME:Gunjan Gtz Jr. :1945 AGE:78 y.o. TIME IN: 11:08 TIME OUT:11:55 CURRENT DIAGNOSIS AND HOSPITAL COURSE: CVA Presented to [facility] on 12/07 with sudden left sided weakness. CTH negative. CTA no LVO. He was given tPA. Neurology consulted. 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 Patient Active Problem List Diagnosis Primary osteoarthritis of both knees Subchondral insufficiency fracture of condyle of left femur (CMS/HCC) ([facility]) Closed fracture of left tibial plateau [...] Infrarenal abdominal aortic aneurysm (AAA) without rupture ([facility]) Acute CVA (cerebrovascular accident) ([facility]) Past Medical History: Diagnosis Date Acute gastric ulcer without hemorrhage or perforation Ulcer, gastric, acute - (Added by TW Conv) Alzheimer's dementia ([facility]) Asthma Back pain Cataract Closed fracture of left tibial plateau with delayed healing Closed fracture of right tibial plateau with delayed healing Closed nondisplaced osteochondral fracture of left patella with delayed healing Closed osteochondral fracture of patella, right, with delayed healing, subsequent encounter Clotting disorder ([facility]) ([facility]) Complex tear of medial meniscus of left knee as current injury Complex tear of medial meniscus of right knee as current injury Cramps of lower extremity Diverticulitis of colon Easy bruisability Fatigue Frequent urination Gastroesophageal reflux disease GERD Hypothyroidism Incontinence of urine Muscle weakness Osteoarthritis Osteoarthritis Peptic ulcer Peptic ulcer disease Seizures ([facility]) 1997 last seizure in 1997 SOB (shortness of breath) on exertion Subchondral insufficiency fracture of condyle of left femur (CMS/HCC) ([facility]) Vertigo Vision changes Visual disturbance hx [...] completely independent with all self care, shares qa specialist with . Reports he was working for [employer]. Enjoys watching basketball. EQUIPMENT OWNED: 2 w/w, rollator, toilet riser, straight cane EQUIPMENT USED: none SOCIAL SUPPORTS: supportive (Alon) who is a school clerk PATIENT/FAMILY GOAL: to get out of here [...] care plan section for PT specific goals. LLER WORKER * Rosalia Marinelli, OT - 12/16/2023 10:00 AM CST Occupational Therapy NOTE / SESSION TYPE: OT EVALUATION PATIENT'S NAME: Gunjan Gtz Jr. AGE / SEX: 78 y.o. / male ROOM: [place] [id number] : 1945 DATE: 12/16/23 TIME IN: 1000 [...] without rupture (HCC) Acute CVA (cerebrovascular accident) ([facility]) Past Medical History: Diagnosis Date Acute gastric ulcer without hemorrhage or perforation Ulcer, gastric, acute - (Added by TW Conv) Alzheimer's dementia ([facility]) Asthma Back pain Cataract Closed fracture of left tibial plateau with delayed healing Closed fracture of right tibial plateau with delayed healing Closed nondisplaced osteochondral fracture of left patella with delayed healing Closed osteochondral fracture of patella, right, with delayed healing, subsequent encounter Clotting disorder ([facility]) ([facility]) Complex tear of medial meniscus of left knee as current injury Complex tear of medial meniscus of right knee as current injury Cramps of lower extremity Diverticulitis of colon Easy bruisability Fatigue Frequent urination Gastroesophageal reflux disease GERD Hypothyroidism Incontinence of urine Muscle weakness Osteoarthritis Osteoarthritis Peptic ulcer Peptic ulcer disease Seizures ([facility]) 1997 last seizure in 1997 SOB (shortness of breath) on exertion Subchondral insufficiency fracture of condyle of left femur ([facility]) ([facility]) Vertigo Vision changes Visual disturbance hx of double vision, corrective lenses Past Surgical History: Procedure Laterality Date CATARACT EXTRACTION, BILATERAL Bilateral 2018 HERNIA REPAIR 1979 Hiatal Hernia repair KNEE ARTHROSCOPY Bilateral THYROIDECTOMY 12/27/2019 ADDITIONAL SIGNIFICANT MEDICAL INFORMATION: 78yoM with history of GERD, PVD presented to [facility] on 12/07 with sudden left sided weakness. 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 SOCIAL ROLES / HOBBIES: watching basketball PATIENT [...] AND NOTIFIED Physical Therapist / Physical Therapist Nailer Operator, NAME: Poly, OF PATIENT'S LOCATION AND FUNCTIONAL [...] transfer training, Balance training, and Safety education SNF GOALS: Multi-Disciplinary Problems (from Occupational Therapy) Active Problems Problem: OT [facility] Start Date: 12/16/23 Goal Start Date Expected End Date End Date [facility] 1 12/16/23 12/23/23 -- Goal Details: Patient will complete basic ADL routine including: bathing in shower, LE dressing, footwear, UB dressing, and grooming tasks with min assist and appropriate compensatory strategies. Goal Start Date Expected End Date End Date [facility] 2 12/16/23 12/23/23 -- Goal Details: Patient will complete simulated car transfer using appropriate device with min assist Goal Start Date Expected End Date End Date [facility] 3 12/16/23 12/23/23 -- Goal Details: Patient will complete toileting and toilet transfer with min assist and appropriate device. Goal Start Date Expected End Date End Date [facility] 4 12/16/23 12/23/23 -- Goal Details: Patient will complete functional/meaningful task in standing for 3-5 minutes with minassist for balance one time. Goal Start Date Expected End Date End Date [facility] 5 12/16/23 12/23/23 -- Goal Details: Patient will complete HEP (LUE SROM/RUE AROM) to improve BUE ROM/strength/endurance and ADL participation with min verbal cues 1 time. Goal Start Date Expected End Date End Date [facility] 6 12/16/23 12/23/23 -- Goal Details: Patient family/caregiver will attend one OT session and be aware of discharge needs/plans Goal Start Date Expected End Date End Date [facility] 7 12/16/23 12/23/23 -- Goal Details: Patient will complete medication management for 2-3 prescriptions with 100% accuracy and no additional cues one time. Rosalia Marinelli OT 12/16/23 LLER WORKER * Paresh Prieto, MUSIC SPECIALIST - 12/16/2023 8:11 AM CST SPEECH-LANGUAGE PATHOLOGY [...] fracture of condyle of left femur (CMS/HCC) ([facility]) Closed fracture of left tibial plateau [...] due to total right knee replacement (CMS/HCC) ([facility]) Hamstring tendinitis of right thigh Quadriceps [...] without rupture (HCC) Acute CVA (cerebrovascular accident) ([facility]) Past Medical History: Diagnosis Date Acute gastric ulcer without hemorrhage or perforation Ulcer, gastric, acute - (Added by TW Conv) Alzheimer's dementia ([facility]) Asthma Back pain Cataract Closed fracture of left tibial plateau with delayed healing Closed fracture of right tibial plateau with delayed healing Closed nondisplaced osteochondral fracture of left patella with delayed healing Closed osteochondral fracture of patella, right, with delayed healing, subsequent encounter Clotting disorder ([facility]) ([facility]) Complex tear of medial meniscus of left knee as current injury Complex tear of medial meniscus of right knee as current injury Cramps of lower extremity Diverticulitis of colon Easy bruisability Fatigue Frequent urination Gastroesophageal reflux disease GERD Hypothyroidism Incontinence of urine Muscle weakness Osteoarthritis Osteoarthritis Peptic ulcer Peptic ulcer disease Seizures ([facility]) 1997 last seizure in 1997 SOB (shortness of breath) on exertion Subchondral insufficiency fracture of condyle of left femur (CMS/[facility]) ([facility]) Vertigo Vision changes Visual disturbance hx of double vision, corrective lenses Past Surgical History: Procedure Laterality Date CATARACT EXTRACTION, BILATERAL Bilateral 2018 HERNIA REPAIR 1979 Hiatal Hernia repair KNEE ARTHROSCOPY Bilateral THYROIDECTOMY 12/27/2019 SUBJECTIVE LIVES WITH: LIVING ENVIRONMENT: 1 story house with a basement PRIOR LEVEL OF FUNCTIONING:Independent with all self care tasks. 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 SOCIAL SUPPORTS: PATIENT/FAMILY GOAL: To return home [...] field inattention noted. SWALLOWING/DYSPHAGIA Swallow assessed by MUSIC SPECIALIST. Regular consistency diet/thin liquids recommended. Patient reports [...] Problems (from Speech Therapy) Active Problems Problem: MUSIC SPECIALIST Misc Start Date: 12/16/23 Goal Start Date Expected End Date End Date [facility] 1 12/16/23 12/23/23 -- Goal Details: Patient to perform short term memory tasks using compensatory strategies with 80% accuracy. Goal Start Date Expected End Date End Date [facility] 2 12/16/23 12/23/23 -- Goal Details: Patient to perform functional problem solving/reasoning tasks with 80% accuracy. Goal Start Date Expected End Date End Date [facility] 3 12/16/23 12/23/23 -- Goal Details: Patient to attend to left visual field 80% of the time given 2-3 verbal prompts. Goal Start Date Expected End Date End Date [facility] 4 12/16/23 12/23/23 -- Goal Details: Patient's speech to be 90% intelligible during conversational tasks utilizing compensatory strategies. PATIENT/FAMILY EDUCATION:Reviewed therapy schedule with patient RESPONSE TO EDUCATION:verbalizes understanding LLER WORKER documented in this encounter H&P Notes * Becky Montana MD - 12/15/2023 3:29 PM CST INPATIENT REHABILITATION ADMISSION HISTORY AND PHYSICAL Gunjan Ulisses Shahid 1945 PRIMARY CARE PROVIDER: Wolfgang Serrano MD Referring Provider: Carlos Claire MD Follow up Appointments: PCP 1-2weeks CC right posterior limb internal capsule infarct HPI: Information from H&P obtained from encounter today with the patient and review of medical record. 78yoM with history of GERD, PVD presented to [facility] on 12/07 with sudden left sided weakness. [...] Lives with who works. Daughter visiting from [place] but leaving tomorrow. 2 steps to enter. [...] assistance (Shares with ) Driving: Yes ([employer]) CURRENT FUNCTIONAL STATUS: Height: Height: 177.8 cm [...] for L LE. (12/14/2023 1:53 PM) COGNITION/SWALLOWING/SPEECH: MUSIC SPECIALIST Cognition: Treatment Note 12/13/2023: MENTAL STATUS: Patient awake, sitting up in chair. Reports improvement with double vision. COGNITION: Cognitive deficits in short term memory and insight. TREATMENT ACTIVITIES: Recall daily activities/recent events with 100% accuracy Oral motor exercises 10xs each Oriented x4 (12/14/2023 1:53 PM) MUSIC SPECIALIST Communication: Treatment Note 12/13/2023: COMMUNICATION: Mild dysarthric speech. (12/14/2023 1:53PM) MUSIC SPECIALIST Swallowing: Treatment Note 12/13/2023: SWALLOWING: Swallow assessed by MUSIC SPECIALIST. Regular consistencydiet/thin liquids recommended. Patient's reports patient having difficulty with food getting stuck on left side of mouth. CAMERA ASSEMBLER changed diet to mechanical soft/thin liquids. 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 Home Setting: One story home Prehospital Lives [...] - (Added by TW Conv) Alzheimer's dementia ([facility]) Asthma Back pain Cataract Closed fracture of left tibial plateau with delayed healing Closed fracture of right tibial plateau with delayed healing Closed nondisplaced osteochondral fracture of left patella with delayed healing Closed osteochondral fracture of patella, right, with delayed healing, subsequent encounter Clotting disorder (CMS/HCC) ([facility]) Complex tear of medial meniscus of left knee as current injury Complex tear of medial meniscus of right knee as current injury Cramps of lower extremity Diverticulitis of colon Easy bruisability Fatigue Frequent urination Gastroesophageal reflux disease GERD Hypothyroidism Incontinence of urine Muscle weakness Osteoarthritis Osteoarthritis Peptic ulcer Peptic ulcer disease Seizures ([facility]) 1997 last seizure in 1997 SOB (shortness of breath) on exertion Subchondral insufficiency fracture of condyle of left femur (CMS/HCC) ([facility]) Vertigo Vision changes Visual disturbance hx [...] mg, 300 mg, oral, TID, Becky Montana MD [START ON 12/16/2023] levothyroxine (SYNTHROID) tablet [...] elbow extension L 0/5 R 5/5 hand millwright helper L 0/5 R 5/5 Strength hip flexion: [...] endurance, speech, cognition, swallow PT OT eval MUSIC SPECIALIST eval Continue aspirin 81mg, rosuvastatin 40mg HTN: [...] Case Management; Social Work; Therapeutic Recreation; SpeechTherapy; Satellite Manager Frequency and duration of therapies expect to [...] Expected intensity and frequency of Speech Therapy (MUSIC SPECIALIST): 1 hour per day per day over [...] Becky Montana MD Physical Medicine and Rehabilitation LLER WORKER documented in this encounter Consult Notes [...] gastric ulcer without hemorrhage or perforation, Alzheimer'sdementia ([facility]), Asthma, Back pain, Cataract, Closed fracture of left tibial plateau with delayed healing, Closed fracture of right tibial plateau with delayed healing, Closed nondisplaced osteochondral fracture of left patella with delayed healing, Closed osteochondral fracture of patella, right, with delayed healing, subsequent encounter, Clotting disorder ([facility]) ([facility]), Complex tear of medialmeniscus of left [...] insufficiency fracture of condyle of left femur (CMS/[facility]) ([facility]), Vertigo, Vision changes, and Visualdisturbance. He [...] soft tissue swelling. 1+ joint effusion. Motion is 5-115 degrees. 1+ laxity with valgus testing. Moderate [...] is recovering from a stroke and surgery is not feasible. Risks and benefits injection were discussed. Under sterile conditions, left knee was injected with 80 mg of Depo-Medrol and 2 cc of 1% lidocaine. This was well tolerated. Hemostasis was attained at the end the procedure and post injection instructions were given. He may follow up in 3 months or as needed. All questions were answered. Thank you for this consultation. LORI Craig Cosigned by George Sepulveda MD at 01/03/2024 8:56 AM CDT * LachelleKyra - 12/16/2023 3:00 PM CSTAssociated Order(s): IP CONSULT TO NUTRITION SERVICES NUTRITION ASSESSMENT Nutrition Status: Patient meets criteria for moderate acute malnutrition, reference ASPEN guidelines. Present on Admission: Yes REASON FOR ASSESSMENT: Consult/Referral - New Admit to Rehab. Encounter Date: 12/16/23 3:19 PM Admission Date: 12/15/2023 LOS: 1 days HPI: Patient is a 78 y.o. male with history of GERD, PVD presented to [facility] on 12/07 with sudden left sided weakness. [...] with delayed healing, subsequent encounter Clotting disorder (CMS/[facility]) ([facility]) Complex tear of medial meniscus of left knee as current injury Complex tear of medial meniscus of right knee as current injury Cramps of lower extremity Diverticulitis of colon Easy bruisability Fatigue Frequent urination Gastroesophageal reflux disease GERD Hypothyroidism Incontinence of urine Muscle weakness Osteoarthritis Osteoarthritis Peptic ulcer Peptic ulcer disease Seizures ([facility]) 1997 last seizure in 1997 SOB (shortness of breath) on exertion Subchondral insufficiency fracture of condyle of left femur ([facility]) ([facility]) Vertigo Vision changes Visual disturbance hx [...] mg/dL 1.09 < > 1.14 1.04 1.12 [id number] mL/min/1.73 m2 69 < > 65 73 [...] ESTIMATED NEEDS: Total Kcal/kg Estimated Needs : 2040. Kcal/k. Type of Weight Used for Estimated [...] depth pinch but not ample Muscle Loss [place] Muscle: Slight depression Clavicle [...] and drink water throughout the day. Call [phone] to speak with a dietitian about any diet related concerns. Additional resources are available online from the Academy of Nutrition and Dietetics at www.eatright.org Nutrition Follow-Up : 12/21/23 Kyra Larose, MS, RD, LD LLER WORKER documented in this encounter Nursing Notes * Oewn Hu RN - 01/03/2024 9:40 AM CDT [...] 10:08 AM CDT Impression: Patient re-evaluated by SWAT [...] Goals: Clinical Goals for the Shift: safety Custodial Patient Centered Goal for Treatment: Increase mobility. [...] Quintanilla RN - 01/07/2024 10:10 AM CDT [facility] Home Health contacted patient at [phone] and meri giles, next called [phone] and spokewith patient, he is aware and agreeable to [facility] PT/OT visits, demographics verified, no other agency follows, he is agreeable to initial visit on Wednesday and prefers morning visit, he would prefer to wait until Wednesday but was aware there were no available appointments on Wednesday and was agreeable to Wednesday initial PT visit. * Plan of Care - Felicity Luis MSW - 01/07/2024 9:08 AM CDT SMOKING PIPES CLEANER received a call from Carmen with [facility] requesting updates that were due on 01/04. CRUZ providedupdates over the phone and notified Carmen of d/c today with services. Carmen requested d/c summary be faxed to her. CRUZ will continue to follow. * Plan of Care - Gurdeep Williamson LPN - 01/06/2024 8:59 PM CDT Goals: Clinical Goals for the Shift: safety Custodial Patient Centered Goal for Treatment: Increase mobility. [...] Goals for the Shift: vss, safety, comfort Nursing Associate Patient Centered Goal for Treatment: Increase mobility. Summary: Problem: Nutritional Goal: Patient's nutrient intake appropriate for improving, restoring or maintaining nutritional needs 01/06/2024 1711 by Jewels Reeves RN Outcome: Progressing 01/06/2024 [...] Patient's ability to tolerate activity will improve 01/06/2024 171 by Jewels Reeves RN Outcome: Progressing 01/06/2024 171 by Jewels Reeves RN Outcome: Not Progressing Problem: Skin Integrity Goal: Patient's skin integrity remains intact 01/06/2024 171 by Jewels Reeves RN Outcome: [...] Patient's understanding of discharge needs will improve 01/06/20241710 by Jewels Reeves RN [...] Luis MSW - 01/06/2024 1:06 PM CDT SMOKING PIPES CLEANER met with pt and pt's daughter at bedside to provide Team Conference update and discuss discharge. Pt's w/c to be delivered today. Pt is aware of d/c date 01/06 and is agreeable to plan. through [facility] to start 01/08. SMOKING PIPES CLEANER will continue to follow. * Plan of Care - Paresh Prieto SLP - 01/06/2024 11:31 AM CDT Problem: MUSIC SPECIALIST Misc Goal: MUSIC SPECIALIST LTG - Misc 1 Description: Patient to perform short term memory tasks using compensatory strategies with 80% accuracy. Outcome: Met Goal: MUSIC SPECIALIST LTG - Misc 2 Description: Patient to perform functional problem solving/reasoning tasks with 80% accuracy. Outcome: Met Goal: MUSIC SPECIALIST LTG - Misc 3 Description: Patient to attend to left visual field 80% of the time given 2-3 verbal prompts. Outcome: Met Goal: MUSIC SPECIALIST LTG - Misc 4 Description: Patient's speech to be 90% intelligible during conversational tasks utilizing compensatory strategies. Outcome: Met * Plan of Care - Katlyn Camarillo RN - 01/06/2024 2:12 AM CDT Goals: Clinical Goals for the Shift: Safety Nursing Associate Patient Centered Goal for Treatment: Increase mobility. [...] Date of : 1945 Sex: Male Room/Bed: [facility] [address] Admitting Diagnosis: Acute CVA (cerebrovascular accident) (HCC) [...] (Comment: continent) 12/30 0800 Incontinent daily 12/26 1914 Incontinent daily 12/25 1899 Incontinent daily 12/25 0819 Incontinent less than daily 12/24 1929 Incontinent daily 12/22 2011 Incontinent daily 12/19 2310 Incontinent daily 12/19 2040 Always incontinent 12/16 0240 Always incontinent 12/15 1999 Always incontinent 12/14 1451 Always incontinent Bowel Continence Status 12/31 1215 Always continent 12/30 0800 Always continent 12/26 1914 Always continent 12/25 190 Occassionally incontinent 12/25 0819 Occassionally incontinent 12/24 1930 Always continent 12/24 0756 Occassionally incontinent 12/22 2011 Occassionally incontinent 12/15 1340 Occassionally incontinent 12/15 1999 Occassionally incontinent 12/14 1451 Occassionally incontinent Pressure Ulcers None Patient Active Problem List Diagnosis Date Noted Primary osteoarthritis of left knee 12/29/2023 Moderate malnutrition (CMS/HCC) 12/17/2023 Acute CVA (cerebrovascular accident) ([facility]) 12/07/2023 Infrarenal abdominal aortic aneurysm (AAA) without rupture ([facility]) 11/12/2023 Lung nodule 10/13/2023 Nocturnal cough 10/13/2023 Hiatal hernia 10/13/2023 Upper GI bleed 10/11/2023 Acquired hypothyroidism 10/11/2023 Acute blood loss anemia 10/11/2023 Coffee ground emesis 10/10/2023 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 05/18/2023 Biceps tendinitis of left upper extremity 05/18/2023 Tear of left glenoid labrum 05/18/2023 Hx of total knee replacement, right 12/01/2022 Neuropathy (CMS/[facility]) 12/01/2022 Idiopathic peripheral neuropathy Abnormality of gait and mobility Pain due to total right knee replacement ([facility]/HCC) ([facility]) 04/28/2022 Hamstring tendinitis of right thigh 04/28/2022 Quadriceps weakness 04/28/2022 Edema 04/04/2020 Intermittent claudication ([facility]) 04/04/2020 Iron deficiency anemia 04/04/2020 Peripheral vascular disease ([facility]) 04/04/2020 Goiter 12/05/2019 Subchondral insufficiency fracture of condyle of left femur (CMS/HCC) ([facility]) 08/30/2018 Closed fracture of left tibial [...] Medicine and Rehab Team Members Present: Physician Centralized Traffic Control Operator: Becky Montana MD Nursing Centralized Traffic Control Operator: Lizette Mike RN Social Work Centralized Traffic Control Operator: Other (comment) (Felicity Luis LCSW) PT Centralized Traffic Control Operator: Kay Aviles PTA OT Centralized Traffic Control Operator: Krystle Cruz OT MUSIC SPECIALIST Centralized Traffic Control Operator: Paresh Prieto SLP Patient/Family Present: Patient Present: [...] discharge needs will improve 12/15/23 -- Problem: MUSIC SPECIALIST Misc Start Date: 12/16/23 Goal Start Date End Date [facility] 1 12/16/23 -- Goal Details: Patient to perform short term memory tasks using compensatory strategies with 80% accuracy. Goal Start Date End Date [facility] 2 12/16/23 -- Goal Details: Patient to perform functional problem solving/reasoning tasks with 80% accuracy. Goal Start Date End Date [facility] 3 12/16/23 -- Goal Details: Patient to attend to left visual field 80% of the time given 2-3 verbal prompts. Goal Start Date End Date [facility] 4 12/16/23 -- Goal Details: Patient's speech [...] 12/16/23 Goal Start Date End Date [facility] - [facility] 1 12/16/23 -- Goal Details: Patient will complete basic ADL routine including: bathing in shower, LE dressing, footwear, UB dressing, and grooming tasks with min assist and appropriate compensatory strategies. Goal Start Date End Date [facility] 2 12/16/23 -- Goal Details: Patient will complete simulated car transfer using appropriate device with min assist Goal Start Date End Date [facility] 3 12/16/23 -- Goal Details: Patient will complete toileting and toilet transfer with min assist and appropriate device. Goal Start Date End Date [facility] 4 12/16/23 -- Goal Details: Patient will complete functional/meaningful task in standing for 3-5 minutes with minassist for balance one time. Goal Start Date End Date [facility] 5 12/16/23 -- Goal Details: Patient will complete HEP (LUE SROM/RUE AROM) to improve BUE ROM/strength/endurance and ADL participation with min verbal cues 1 time. Goal Start Date End Date [facility] 6 12/16/23 -- Goal Details: Patient family/caregiver will attend one OT session and be aware of discharge needs/plans Goal Start Date End Date [facility] 7 12/16/23 -- Goal Details: Patient will [...] knee weakness. Wheelchair management & propulsion: using KTAELIN LE's and right UE 160'x1 and supervision assist with increased time to complete task. (01/04/2024 12:20 PM) Cognition/Communication/Swallowing: MUSIC SPECIALIST Cognition: Mild/moderate cognitive deficits in short-term memory, insight, and problem solving/reasoning. Left visual inattention. 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[employer], spouse works two parts data writer jobs Home Accessibility: 2 steps in, 17 [...] Tub bench Anticipated Discharge Date: 01/07/24 Potential Nursing Associate Needs/Follow-up: Potential Custodial Needs: Therapies,Community Resources: To be determined Consults/Referrals: [...] Goals: Clinical Goals for the Shift: safety Nursing Associate Patient Centered Goal for Treatment: Increase mobility [...] Progressing Weekly Team Goals: Kay Aviles PTA Brickmason Contractor Physical Therapy Plan of Care Signed Date [...] Zaman, PT 01/05/2024 8:12 AM Ella Carter, MUSIC SPECIALIST Speech and Language Pathologist Speech Pathology Plan of Care Signed Date of Service: 01/04/2024 1:27 PM Signed Problem: MUSIC SPECIALIST Misc Goal: MUSIC SPECIALIST LTG - Misc 1 Description: Patient to perform short term memory tasks using compensatory strategies with 80% accuracy. Outcome: Progressing Goal: MUSIC SPECIALIST LTG - Misc 2 Description: Patient to perform functional problem solving/reasoning tasks with 80% accuracy. Outcome: Progressing Goal: MUSIC SPECIALIST LTG - Misc 3 Description: Patient to attend to left visual field 80% of the time given 2-3 verbal prompts. Outcome: Progressing Goal: MUSIC SPECIALIST LTG - Misc 4 Description: Patient's speech to be 90% intelligible during conversational tasks utilizing compensatory strategies. Outcome: Progressing Rosalia Marinelli, OT Occupational Therapist Occupational Therapy Progress Notes Signed Date of Service: 01/04/2024 11:50 AM Signed Occupational Therapy NOTE / SESSION TYPE: OT ROUNDS UPDATE PATIENT'S NAME: Gunjan Gtz Jr. AGE / SEX: 78 y.o. / male ROOM: [place] [address] : 1945 DATE: 01/04/24 Multi-Disciplinary Problems (from Occupational Therapy) Active Problems Problem: OT [facility] Start Date: 12/16/23 Goal Start Date Expected End Date End Date OT [facility] - [facility] 1 12/16/23 12/23/23 -- Goal Details: Patient will complete basic ADL routine including: bathing in shower, LE dressing, footwear, UB dressing, and grooming tasks with min assist and appropriate compensatory strategies. Goal Start Date Expected End Date End Date OT [facility] - [facility] 2 12/16/23 12/23/23 -- Goal Details: Patient will complete simulated car transfer using appropriate device with min assist Goal Start Date Expected End Date End Date OT G - [facility] 3 12/16/23 12/23/23 -- Goal Details: Patient will complete toileting and toilet transfer with min assist and appropriate device. Goal Start Date Expected End Date End Date OT [facility] 4 12/16/23 12/23/23 -- Goal Details: Patient will complete functional/meaningful task in standing for 3-5 minutes with minassist for balance one time. Goal Start Date Expected End Date End Date OT [facility] 5 12/16/23 12/23/23 -- Goal Details: Patient will complete HEP (LUE SROM/RUE AROM) to improve BUE ROM/strength/endurance and ADL participation with min verbal cues 1 time. Goal Start Date Expected End Date End Date OT [facility] 6 12/16/23 12/23/23 -- Goal Details: Patient family/caregiver will attend one OT session and be aware of discharge needs/plans Goal Start Date Expected End Date End Date OT [facility] 7 12/16/23 12/23/23 -- Goal [...] 2:58 PM CDT Associated attestation - Becky Montana MD - 01/05/2024 2:58 PM CDT I was present for the meeting and agree. 01/05/24 Progress: doing well DC Date:Saturday 01/06 with home health PT OT DME: wheelchair * Plan of Care - Lizette Mike RN - 01/05/2024 10:02 AM CDT Goals: Clinical Goals for the Shift: safety Nursing Associate Patient Centered Goal for Treatment: Increase mobility [...] SLP - 01/05/2024 9:59 AM CDT Problem: MUSIC SPECIALIST Mis Goal: MUSIC SPECIALIST [facility] [place] 1 Description: Patient to perform short term memory tasks using compensatory strategies with 80% accuracy. Outcome: Progressing Note: Current Functional Status: MUSIC SPECIALIST Cognition: Mild/moderate cognitive deficits in short-term memory, insight, and problem solving/reasoning. Left visual inattention. MUSIC SPECIALIST Communication: Mild dysarthria MUSIC SPECIALIST Swallowing: Tolerating regular diet with thin liquids Barriers: Cognition Overcoming Barriers: functional memory tasks, compensatory strategies Goal: MUSIC SPECIALIST [facility] [place] 2 Description: Patient to perform functional problem solving/reasoning tasks with 80% accuracy. Outcome: Progressing Note: Current Functional Status: MUSIC SPECIALIST Cognition: Mild/moderate cognitive deficits in short-term memory, insight, and problem solving/reasoning. Left visual inattention. MUSIC SPECIALIST Communication: Mild dysarthria MUSIC SPECIALIST Swallowing: Tolerating regular diet with thin liquids Barriers: Cognition Overcoming Barriers: Functional problem solving/reasoning tasks, verbal cues Goal: MUSIC SPECIALIST [facility] [place] 3 Description: Patient to attend to left visual field 80% of the time given 2-3 verbal prompts. Outcome: Progressing Note: Current Functional Status: MUSIC SPECIALIST Cognition: Mild/moderate cognitive deficits in short-term memory, insight, and problem solving/reasoning. Left visual inattention. MUSIC SPECIALIST Communication: Mild dysarthria MUSIC SPECIALIST Swallowing: Tolerating regular diet with thin liquids Barriers: Left visual inattention Overcoming Barriers: scanning tasks Goal: MUSIC SPECIALIST [facility] 4 Description: Patient's speech to be 90% intelligible during conversational tasks utilizing compensatory strategies. Outcome: Progressing Note: Current Functional Status: MUSIC SPECIALIST Cognition: Mild/moderate cognitive deficits in short-term memory, insight, and problem solving/reasoning. Left visual inattention. MUSIC SPECIALIST Communication: Mild dysarthria MUSIC SPECIALIST Swallowing: Tolerating regular diet with thin liquids Barriers: Dysarthria Overcoming Barriers: Conversational tasks, compensatory strategies, oral motor exercises * Plan of Care - Gurdeep Williamson LPN - 01/04/2024 8:45 PM CDT Goals: Clinical Goals for the Shift: safety Custodial Patient Centered Goal for Treatment: Increase mobility [...] * Plan of Care - Kay Aviles, THERMOSPRAY OPERATOR - 01/04/2024 4:31 PM CDT Problem: PT [...] SLP - 01/04/2024 1:27 PM CDT Problem: MUSIC SPECIALIST Misc Goal: MUSIC SPECIALIST LTG - Misc 1 Description: Patient to perform short term memory tasks using compensatory strategies with 80% accuracy. Outcome: Progressing Goal: MUSIC SPECIALIST LTG - Misc 2 Description: Patient to perform functional problem solving/reasoning tasks with 80% accuracy. Outcome: Progressing Goal: MUSIC SPECIALIST LTG - Misc 3 Description: Patient to attend to left visual field 80% of the time given 2-3 verbal prompts. Outcome: Progressing Goal: MUSIC SPECIALIST LTG - Misc 4 Description: Patient's speech to be 90% intelligible during conversational tasks utilizing compensatory strategies. Outcome: Progressing * Plan of Care - Gurdeep Williamson LPN - 01/03/2024 8:56 PM CDT Goals: Clinical Goals for the Shift: safety Nursing Associate Patient Centered Goal for Treatment: Increase mobility [...] Luis MSW - 01/03/2024 4:12 PM CDT SMOKING PIPES CLEANER placed DME referral to [facility] Home Medical Equipment for W/C order. SMOKING PIPES CLEANER will follow up with [facility] DME and continue to follow for discharge [...] 168 hours) PT Treatment Row Name 12/28/23 [id number] Current Functional Status PT Functional Mobility Bed [...] By Initials Name Effective Dates Kay Jama, THERMOSPRAY OPERATOR 09/11/19 - PT Notes Notes from 01/01/24 through 01/03/24 No notes of this type exist for this encounter. * Plan of Care - Paresh Prieto SLP - 01/03/2024 9:40 AM CDT Problem: MUSIC SPECIALIST Misc Goal: MUSIC SPECIALIST LTG - Misc 1 Description: Patient to perform short term memory tasks using compensatory strategies with 80% accuracy. Outcome: Progressing Goal: MUSIC SPECIALIST LTG - Misc 2 Description: Patient to perform functional problem solving/reasoning tasks with 80% accuracy. Outcome: Progressing Goal: MUSIC SPECIALIST LTG - Misc 3 Description: Patient to attend to left visual field 80% of the time given 2-3 verbal prompts. Outcome: Progressing Goal: MUSIC SPECIALIST LTG - Misc 4 Description: Patient's speech to be 90% intelligible during conversational tasks utilizing compensatory strategies. Outcome: Progressing * Plan of Care - Nelli Gamez RN - 01/03/2024 8:59 AM CDT Goals: Clinical Goals for the Shift: safety/comfort Custodial Patient Centered Goal for Treatment: Increase mobility [...] Flowsheets (Taken 12/24/2023 1105 by Gela Gann, MARAH) Patient will remain free from falls: Assess [...] Goals: Clinical Goals for the Shift: safety/comfort Custodial Patient Centered Goal for Treatment: Increase mobility [...] for the Shift: safety and stable vs Custodial Patient Centered Goal for Treatment: Increase mobility [...] Goals: Clinical Goals for the Shift: safety,comfort Nursing Associate Patient Centered Goal for Treatment: Increase mobility [...] for the Shift: safety and stable vs Custodial Patient Centered Goal for Treatment: Increase mobility [...] Goals: Clinical Goals for the Shift: safety/comfort Nursing Associate Patient Centered Goal for Treatment: Increase mobility [...] Lopez MSW - 12/31/2023 10:55 AM CDT Sw to provide pt with private duty info [...] d/c summaries sent to 's office at [phone]. QUAN Frank,[facility], [facility] [phone] * Plan of Care - Paresh Prieto SLP - 12/31/2023 10:01 AM CDT Problem: MUSIC SPECIALIST Misc Goal: MUSIC SPECIALIST LTG - Misc 1 Description: Patient to perform short term memory tasks using compensatory strategies with 80% accuracy. Outcome: Progressing Goal: MUSIC SPECIALIST LTG - Misc 2 Description: Patient to perform functional problem solving/reasoning tasks with 80% accuracy. Outcome: Progressing Goal: MUSIC SPECIALIST LTG - Misc 3 Description: Patient to attend to left visual field 80% of the time given 2-3 verbal prompts. Outcome: Progressing Goal: MUSIC SPECIALIST LTG - Misc 4 Description: Patient's speech to be 90% intelligible during conversational tasks utilizing compensatory strategies. Outcome: Progressing * Plan of Care - Nelli Gamez RN - 12/31/2023 9:19 AM CDT Goals: Clinical Goals for the Shift: safety Nursing Associate Patient Centered Goal for Treatment: Increase mobility [...] (Taken 12/24/2023 110 by Gela Gann, MARAH) Patient will maintain or return to baseline bowel function: Monitor amount, characteristics and/or frequency of stool Monitor for signs and symptoms of constipation Goal: Patient will be continent of stool Outcome: Progressing Flowsheets (Taken 12/24/2023 110 by Gela Gann, MARAH) Patient will be continent of stool: Encourage [...] Outcome: Progressing Flowsheets (Taken 12/24/20231104 by Gela Gann RN) Patient's ability to [...] Goals: Clinical Goals for the Shift: safety Nursing Associate Patient Centered Goal for Treatment: Increase mobility [...] 2:34 PM CDT Update: Per Rodger with [employer] does private duty in the [facility]. Sw left message for them, ph # [phone]. Spoke with pt's spouse regarding d/c plans. Per spouse she is not physically able to help pt out. She also is working outside of the home. Discussed hhc and private duty. Per spouse she did get a call from the [facility] care coordination and they make too much money to qualify for assistance. [facility] hhc to start 01/08. Spouse would also like information about equipment pt will need. Sw left message for Tati with [employer], ph # [phone] ext [phone] and also with Rodger Swartz with [employer] ph # [phone] to see if they are familiar with any private pay [facility] companies in [facility]. QUAN Frank,[facility] [phone] * Plan of Care - Paresh Prieto SLP - 12/30/2023 10:04 AM CDT Problem: MUSIC SPECIALIST Misc Goal: MUSIC SPECIALIST LTG - Misc 1 Description: Patient to perform short term memory tasks using compensatory strategies with 80% accuracy. Outcome: Progressing Goal: MUSIC SPECIALIST LTG - Misc 2 Description: Patient to perform functional problem solving/reasoning tasks with 80% accuracy. Outcome: Progressing Goal: MUSIC SPECIALIST LTG - Misc 3 Description: Patient to attend to left visual field 80% of the time given 2-3 verbal prompts. Outcome: Progressing Goal: MUSIC SPECIALIST LTG - Misc 4 Description: Patient's speech to be 90% intelligible during conversational tasks utilizing compensatory strategies. Outcome: Progressing * Plan of Sariah - Lizette Mike RN - 12/30/2023 8:30 AM CDT Goals: Clinical Goals for the Shift: safety Nursing Associate Patient Centered Goal for Treatment: Increase independence/ [...] Goals: Clinical Goals for the Shift: safety Custodial Patient Centered Goal for Treatment: Increase independence/ [...] Date of : 1945 Sex: Male Room/Bed: [facility] [address] Admitting Diagnosis: Acute CVA (cerebrovascular accident) (HCC) [...] Incontinent daily 12/22 2011 Incontinent daily 12/19 231 Incontinent daily 12/19 204 Always incontinent 12/16 [...] Problem List Diagnosis Date Noted Moderate malnutrition (CMS/HCC) 12/17/2023 Acute CVA (cerebrovascular accident) ([facility]) 12/07/2023 Infrarenal abdominal aortic aneurysm (AAA) without rupture ([facility]) 11/12/2023 Lung nodule 10/13/2023 Nocturnal cough 10/13/2023 Hiatal hernia 10/13/2023 Upper GI bleed 10/11/2023 Acquired hypothyroidism 10/11/2023 Acute blood loss anemia 10/11/2023 Coffee ground emesis 10/10/2023 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 05/18/2023 Biceps tendinitis of left upper extremity 05/18/2023 Tear of left glenoid labrum 05/18/2023 Hx of total knee replacement, right 12/01/2022 Neuropathy (CMS/HCC) 12/01/2022 Idiopathic peripheral neuropathy Abnormality of gait and mobility Pain due to total right knee replacement ([facility]) ([facility]) 04/28/2022 Hamstring tendinitis of right thigh 04/28/2022 Quadriceps weakness 04/28/2022 Edema 04/04/2020 Intermittent claudication ([facility]) 04/04/2020 Iron deficiency anemia 04/04/2020 Peripheral vascular disease ([facility]) 04/04/2020 Goiter 12/05/2019 Subchondral insufficiency fracture of condyle of left femur ([facility]) ([facility]) 08/30/2018 Closed fracture of left tibial [...] medicine and Rehabillitation Team Members Present: Physician Centralized Traffic Control Operator: Becky Montana MD Nursing Centralized Traffic Control Operator: Lizette Mike RN Social Work Centralized Traffic Control Operator: Kendra Lopez MSW PT Centralized Traffic Control Operator: Other (comment) (Vanessa Zaman PT) OT Centralized Traffic Control Operator: Krystle Cruz OT MUSIC SPECIALIST Centralized Traffic Control Operator: Paresh Prieto SLP Patient/Family Present: Patient Present: [...] discharge needs will improve 12/15/23 -- Problem: MUSIC SPECIALIST [facility] Start Date: 12/16/23 Goal Start Date End Date [facility] [place] 1 12/16/23 -- Goal Details: Patient to perform short term memory tasks using compensatory strategies with 80% accuracy. Goal Start Date End Date [facility] [place] 2 12/16/23 -- Goal Details: Patient to perform functional problem solving/reasoning tasks with 80% accuracy. Goal Start Date End Date [facility] - [facility] [place] 3 12/16/23 -- Goal Details: Patient to attend to left visual field 80% of the time given 2-3 verbal prompts. Goal Start Date End Date [facility] - [facility] [place] 4 12/16/23 -- Goal Details: Patient's speech [...] family training session 12/16/23 -- Problem: OT [facility] [place] Start Date: 12/16/23 Goal Start Date End Date [facility] 1 12/16/23 -- Goal Details: Patient will complete basic ADL routine including: bathing in shower, LE dressing, footwear, UB dressing, and grooming tasks with min assist and appropriate compensatory strategies. Goal Start Date End Date [facility] 2 12/16/23 -- Goal Details: Patient will complete simulated car transfer using appropriate device with min assist Goal Start Date End Date [facility] 3 12/16/23 -- Goal Details: Patient will complete toileting and toilet transfer with min assist and appropriate device. Goal Start Date End Date [facility] 4 12/16/23 -- Goal Details: Patient will complete functional/meaningful task in standing for 3-5 minutes with minassist for balance one time. Goal Start Date End Date [facility] 5 12/16/23 -- Goal Details: Patient will complete HEP (LUE SROM/RUE AROM) to improve BUE ROM/strength/endurance and ADL participation with min verbal cues 1 time. Goal Start Date End Date [facility] 6 12/16/23 -- Goal Details: Patient family/caregiver will attend one OT session and be aware of discharge needs/plans Goal Start Date End Date [facility] 7 12/16/23 -- Goal Details: Patient will [...] with increased time. (12/28/2023 11:15 AM) Cognition/Communication/Swallowing: MUSIC SPECIALIST Cognition: Mild/moderate cognitive deficits in short-term memory, insight, and problem solving/reasoning. Left visual inattention. 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 Encourage activity. Nursing Associate Patient Centered Goal for Treatment: Increase independence/ [...] / SEX: 78 y.o. / male ROOM: [place] [address] : 1945 DATE: 12/28/23 Multi-Disciplinary Problems (from Occupational Therapy) Active Problems Problem: OT [facility] Start Date: 12/16/23 Goal Start Date Expected End Date End Date [facility] 1 12/16/23 12/23/23 -- Goal Details: Patient will complete basic ADL routine including: bathing in shower, LE dressing, footwear, UB dressing, and grooming tasks with min assist and appropriate compensatory strategies. Goal Start Date Expected End Date End Date [facility] 2 12/16/23 12/23/23 -- Goal Details: Patient will complete simulated car transfer using appropriate device with min assist Goal Start Date Expected End Date End Date [facility] 3 12/16/23 12/23/23 -- Goal Details: Patient will complete toileting and toilet transfer with min assist and appropriate device. Goal Start Date Expected End Date End Date [facility] 4 12/16/23 12/23/23 -- Goal Details: Patient will complete functional/meaningful task in standing for 3-5 minutes with minassist for balance one time. Goal Start Date Expected End Date End Date [facility] 5 12/16/23 12/23/23 -- Goal Details: Patient will complete HEP (LUE SROM/RUE AROM) to improve BUE ROM/strength/endurance and ADL participation with min verbal cues 1 time. Goal Start Date Expected End Date End Date [facility] 6 12/16/23 12/23/23 -- Goal Details: Patient family/caregiver will attend one OT session and be aware of discharge needs/plans Goal Start Date Expected End Date End Date [facility] 7 12/16/23 12/23/23 -- Goal Details: Patient [...] 12/28/23 3:29 PM . Kay Aviles PTA [employer] Physical Therapy Plan of Care Cosign Needed [...] environment and safety with activity. Encourage activity. Nursing Associate Patient Centered Goal for Treatment: Increase independence/ [...] environment and safety with activity. Encourage activity. Nursing Associate Patient Centered Goal for Treatment: Increase independence/ [...] SLP - 12/28/2023 9:20 AM CDT Problem: MUSIC SPECIALIST Misc Goal: MUSIC SPECIALIST LTG - Misc 1 Description: Patient to perform short term memory tasks using compensatory strategies with 80% accuracy. Outcome: Progressing Current Functional Status: MUSIC SPECIALIST Cognition: Mild/moderate cognitive deficits in short-term memory, insight, and problem solving/reasoning. Left visual inattention. MUSIC SPECIALIST Communication: Mild dysarthria MUSIC SPECIALIST Swallowing: Tolerating regular diet with thin liquids Barriers: Cognition Overcoming Barriers: Compensatory strategies, verbal cues, functional memory/problem solving tasks Goal: MUSIC SPECIALIST LTG - Misc 2 Description: Patient to perform functional problem solving/reasoning tasks with 80% accuracy. Outcome: Progressing Current Functional Status: MUSIC SPECIALIST Cognition: Mild/moderate cognitive deficits in short-term memory, insight, and problem solving/reasoning. Left visual inattention. MUSIC SPECIALIST Communication: Mild dysarthria MUSIC SPECIALIST Swallowing: Tolerating regular diet with thin liquids Barriers: Cognition Overcoming Barriers: Compensatory strategies, verbal cues, functional memory/problem solving tasks Goal: MUSIC SPECIALIST [facility] 3 Description: Patient to attend to left visual field 80% of the time given 2-3 verbal prompts. Outcome: Progressing Current Functional Status: MUSIC SPECIALIST Cognition: Mild/moderate cognitive deficits in short-term memory, insight, and problem solving/reasoning. Left visual inattention. MUSIC SPECIALIST Communication: Mild dysarthria MUSIC SPECIALIST Swallowing: Tolerating regular diet with thin liquids Barriers: Cognition, Neglect Overcoming Barriers: Scanning tasks, compensatory strategies Goal: MUSIC SPECIALIST [facility] 4 Description: Patient's speech to be 90% intelligible during conversational tasks utilizing compensatory strategies. Outcome: Progressing Current Functional Status: MUSIC SPECIALIST Cognition: Mild/moderate cognitive deficits in short-term memory, insight, and problem solving/reasoning. Left visual inattention. MUSIC SPECIALIST Communication: Mild dysarthria MUSIC SPECIALIST Swallowing: Tolerating regular diet with thin liquids Barriers: Dysarthria Overcoming Barriers: compensatory strategies, conversational tasks * Plan of Care - Lizette Mike RN - 12/28/2023 9:05 AM CDT Goals: Clinical Goals for the Shift: Vss, Safety, Pain control, Rest Custodial Patient Centered Goal for Treatment: increase mobility/independence [...] the Shift: Vss, Safety, Pain control, Rest Nursing Associate Patient Centered Goal for Treatment: increase mobility/independence * Plan of Care - Gela Gann RN - 12/27/2023 3:07 PM CDT Problem: Nutritional Goal: Patient's nutrient intake appropriate for improving, restoring or maintaining nutritional needs Outcome: Progressing Flowsheets (Taken 12/24/2023 1105) Patient's nutrient intake appropriate for improving, restoring, [...] of urine Outcome: Progressing Flowsheets (Taken 12/24/2023 1105) Patient will be continent of urine: Encourage [...] Goals: Clinical Goals for the Shift: Safety/comfort Nursing Associate Patient Centered Goal for Treatment: increase mobility/independence Summary: Patient safety maintained and comfort monitored * Plan of Care - Kendra Lopez MSW - 12/27/2023 10:02 AM CDT Update: Referral made to the [facility] care coordination. Sw met with pt per [...] to d/c. Sw to make referral to [facility] care coordination. QUAN Frank,ACM-JIMENA, [facility] [phone] * Plan of Care - Ella Carter SLP - 12/27/2023 9:19 AM CDT Problem: MUSIC SPECIALIST Misc Goal: MUSIC SPECIALIST LTG - Misc 1 Description: Patient to perform short term memory tasks using compensatory strategies with 80% accuracy. Outcome: Progressing Goal: MUSIC SPECIALIST LTG - Misc 2 Description: Patient to perform functional problem solving/reasoning tasks with 80% accuracy. Outcome: Progressing Goal: MUSIC SPECIALIST LTG - Misc 3 Description: Patient to attend to left visual field 80% of the time given 2-3 verbal prompts. Outcome: Progressing Goal: MUSIC SPECIALIST LTG - Misc 4 Description: Patient's speech [...] Goals for the Shift: VSS, Safety, Rest Nursing Associate Patient Centered Goal for Treatment: increase mobility/independence [...] Goals: Clinical Goals for the Shift: Safety/comfort Nursing Associate Patient Centered Goal for Treatment: increase mobility/independence [...] Clinical Goals for the Shift: VSS, Safety Nursing Associate Patient Centered Goal for Treatment: increase mobility [...] Goals: Clinical Goals for the Shift: safety/comfort Nursing Associate Patient Centered Goal for Treatment: increase mobility [...] Flowsheets (Taken 12/16/2023 1049 by Gela Gann, RN) Patient will demonstrate safety requirements appropriate [...] SLP - 12/24/2023 12:55 PM CDT Problem: MUSIC SPECIALIST Misc Goal: MUSIC SPECIALIST LTG - Misc 1 Description: Patient to perform short term memory tasks using compensatory strategies with 80% accuracy. Outcome: Progressing Goal: MUSIC SPECIALIST LTG - Misc 2 Description: Patient to perform functional problem solving/reasoning tasks with 80% accuracy. Outcome: Progressing Goal: MUSIC SPECIALIST LTG - Misc 3 Description: Patient to attend to left visual field 80% of the time given 2-3 verbal prompts. Outcome: Progressing Goal: MUSIC SPECIALIST LTG - Misc 4 Description: Patient's speech [...] Progressing Flowsheets (Taken 12/22/2023 1036 by Gela Gann RN) Patient will remain free from injury from falls: Provide safe environment for activities of daily living in hospital environment Goals: Clinical Goals for the Shift: safety/comfort Summary: VSS denies pain or discomfort. Call light used to voice needs * Plan of Care - Paresh Prieto SLP - 12/23/2023 12:52 PM CDT Problem: MUSIC SPECIALIST Misc Goal: MUSIC SPECIALIST LTG - Misc 1 Description: Patient to perform short term memory tasks using compensatory strategies with 80% accuracy. Outcome: Progressing Goal: MUSIC SPECIALIST LTG - Misc 2 Description: Patient to perform functional problem solving/reasoning tasks with 80% accuracy. Outcome: Progressing Goal: MUSIC SPECIALIST LTG - Misc 3 Description: Patient to attend to left visual field 80% of the time given 2-3 verbal prompts. Outcome: Progressing Goal: MUSIC SPECIALIST LTG - Misc 4 Description: Patient's speech [...] will need help upon d/c. QUAN Frank,ACM-JIMENA, [facility] [phone] * Plan of Care - Gela Gann [...] Date of : 1945 Sex: Male Room/Bed: [id number] Admitting Diagnosis: Acute CVA (cerebrovascular accident) ([facility]) [I63.9] Admit Date/Time: 12/15/2023 2:14 PM Admission [...] Problem List Diagnosis Date Noted Moderate malnutrition ([facility]) 12/17/2023 Acute CVA (cerebrovascular accident) ([facility]) 12/07/2023 Infrarenal abdominal aortic aneurysm (AAA) without rupture ([facility]) 11/12/2023 Lung nodule 10/13/2023 Nocturnal cough 10/13/2023 Hiatal hernia 10/13/2023 Upper GI bleed 10/11/2023 Acquired hypothyroidism 10/11/2023 Acute blood loss anemia 10/11/2023 Coffee ground emesis 10/10/2023 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 05/18/2023 Biceps tendinitis of left upper extremity 05/18/2023 Tear of left glenoid labrum 05/18/2023 Hx of total knee replacement, right 12/01/2022 Neuropathy ([facility]) 12/01/2022 Idiopathic peripheral neuropathy Abnormality of gait and mobility Pain due to total right knee replacement ([facility]) ([facility]) 04/28/2022 Hamstring tendinitis of right thigh 04/28/2022 Quadriceps weakness 04/28/2022 Edema 04/04/2020 Intermittent claudication ([facility]) 04/04/2020 Iron deficiency anemia 04/04/2020 Peripheral vascular disease ([facility]) 04/04/2020 Goiter 12/05/2019 Subchondral insufficiency fracture of condyle of left femur ([facility]) ([facility]) 08/30/2018 Closed fracture of left tibial [...] Medicine and Rehabilitation Team Members Present: Physician Centralized Traffic Control Operator: Becky Montana MD Nursing Centralized Traffic Control Operator: Gela Gann RN Social Work Centralized Traffic Control Operator: Kendra Lopez MSW PT Centralized Traffic Control Operator: Vanessa Zaman PT OT Centralized Traffic Control Operator: Krystle Cruz OT MUSIC SPECIALIST Centralized Traffic Control Operator: Paresh Prieto SLP Patient/Family Present: Patient Present: [...] discharge needs will improve 12/15/23 -- Problem: MUSIC SPECIALIST Misc Start Date: 12/16/23 Goal Start Date End Date [facility] 1 12/16/23 -- Goal Details: Patient to perform short term memory tasks using compensatory strategies with 80% accuracy. Goal Start Date End Date [facility] 2 12/16/23 -- Goal Details: Patient to perform functional problem solving/reasoning tasks with 80% accuracy. Goal Start Date End Date [facility] - [facility] 3 12/16/23 -- Goal Details: Patient to attend to left visual field 80% of the time given 2-3 verbal prompts. Goal Start Date End Date [facility] - [facility] 4 12/16/23 -- Goal Details: Patient's speech [...] 12/16/23 Goal Start Date End Date OT [facility] - [facility] 1 12/16/23 -- Goal Details: Patient will complete basic ADL routine including: bathing in shower, LE dressing, footwear, UB dressing, and grooming tasks with min assist and appropriate compensatory strategies. Goal Start Date End Date [facility] 2 12/16/23 -- Goal Details: Patient will complete simulated car transfer using appropriate device with min assist Goal Start Date End Date [facility] 3 12/16/23 -- Goal Details: Patient will complete toileting and toilet transfer with min assist and appropriate device. Goal Start Date End Date [facility] 4 12/16/23 -- Goal Details: Patient will complete functional/meaningful task in standing for 3-5 minutes with minassist for balance one time. Goal Start Date End Date [facility] 5 12/16/23 -- Goal Details: Patient will complete HEP (LUE SROM/RUE AROM) to improve BUE ROM/strength/endurance and ADL participation with min verbal cues 1 time. Goal Start Date End Date [facility] 6 12/16/23 -- Goal Details: Patient family/caregiver will attend one OT session and be aware of discharge needs/plans Goal Start Date End Date [facility] 7 12/16/23 -- Goal Details: Patient will [...] UE with SPV. (12/21/2023 12:00 PM) Cognition/Communication/Swallowing: MUSIC SPECIALIST Cognition: Mild/moderate cognitive deficits in short term memory and thought organization. (12/21/2023 1:24 PM) MUSIC SPECIALIST Communication: Mild dysarthric speech. (12/21/2023 1:24 PM) MUSIC SPECIALIST Swallowing: Swallow assessed by MUSIC SPECIALIST. Regular consistency diet/thin liquids recommended. Patientuses intermittent finger/lingual sweep and liquid wash to clear residue. 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 / male ROOM: [place] [id number] : 1945 DATE: 12/21/23 Multi-Disciplinary Problems (from Occupational Therapy) Active Problems Problem: OT [facility] Start Date: 12/16/23 Goal Start Date Expected End Date End Date [facility] 1 12/16/23 12/23/23 -- Goal Details: Patient will complete basic ADL routine including: bathing in shower, LE dressing, footwear, UB dressing, and grooming tasks with min assist and appropriate compensatory strategies. Goal Start Date Expected End Date End Date [facility] 2 12/16/23 12/23/23 -- Goal Details: Patient will complete simulated car transfer using appropriate device with min assist Goal Start Date Expected End Date End Date [facility] 3 12/16/23 12/23/23 -- Goal Details: Patient will complete toileting and toilet transfer with min assist and appropriate device. Goal Start Date Expected End Date End Date [facility] 4 12/16/23 12/23/23 -- Goal Details: Patient will complete functional/meaningful task in standing for 3-5 minutes with minassist for balance one time. Goal Start Date Expected End Date End Date [facility] 5 12/16/23 12/23/23 -- Goal Details: Patient will complete HEP (LUE SROM/RUE AROM) to improve BUE ROM/strength/endurance and ADL participation with min verbal cues 1 time. Goal Start Date Expected End Date End Date OT [facility] - [facility] 6 12/16/23 12/23/23 -- Goal Details: Patient family/caregiver will attend one OT session and be aware of discharge needs/plans Goal Start Date Expected End Date End Date OT [facility] - [facility] 7 12/16/23 12/23/23 -- Goal Details: Patient [...] Marinelli, OT 12/21/23 4:27 PM Paresh Prieto, MUSIC SPECIALIST Speech and Language Pathologist Speech Pathology Plan of Care Signed Date of Service: 12/21/2023 1:29 PM Signed Problem: MUSIC SPECIALIST Misc Goal: MUSIC SPECIALIST LT - [facility] 1 Description: Patient to perform short term memory tasks using compensatory strategies with 80% accuracy. Outcome: Progressing Note: Current Functional Status: MUSIC SPECIALIST Cognition: Mild/moderate cognitive deficits in short term memory and thought organization. MUSIC SPECIALIST Communication: Mild dysarthric speech. MUSIC SPECIALIST Swallowing: Swallow assessed by MUSIC SPECIALIST. Regular consistency diet/thin liquids recommended. Patientuses intermittent finger/lingual sweep and liquid wash to clear residue. Barriers: Cognition Overcoming Barriers: Short term recall tasks, compensatory strategies, daily recall of activities Goal: MUSIC SPECIALIST [facility] 2 Description: Patient to perform functional problem solving/reasoning tasks with 80% accuracy. Outcome: Progressing Note: Current Functional Status: MUSIC SPECIALIST Cognition: Mild/moderate cognitive deficits in short term memory and thought organization. MUSIC SPECIALIST Communication: Mild dysarthric speech. MUSIC SPECIALIST Swallowing: Swallow assessed by MUSIC SPECIALIST. Regular consistency diet/thin liquids recommended. Patientuses intermittent finger/lingual sweep and liquid wash to clear residue. Barriers: Cognition Overcoming Barriers: Problem solving/reasoning tasks, verbal cues Goal: MUSIC SPECIALIST [facility] 3 Description: Patient to attend to left visual field 80% of the time given 2-3 verbal prompts. Outcome: Progressing Note: Current Functional Status: MUSIC SPECIALIST Cognition: Mild/moderate cognitive deficits in short term memory and thought organization. MUSIC SPECIALIST Communication: Mild dysarthric speech. MUSIC SPECIALIST Swallowing: Swallow assessed by MUSIC SPECIALIST. Regular consistency diet/thin liquids recommended. Patientuses intermittent finger/lingual sweep and liquid wash to clear residue. Barriers: Cognition, left visual field inattention Overcoming Barriers: visual scanning tasks, verbal cues/prompts Goal: [facility] 4 Description: Patient's speech to be 90% intelligible during conversational tasks utilizing compensatory strategies. Outcome: Progressing Note: Current Functional Status: MUSIC SPECIALIST Cognition: Mild/moderate cognitive deficits in short term memory and thought organization. MUSIC SPECIALIST Communication: Mild dysarthric speech. MUSIC SPECIALIST Swallowing: Swallow assessed by MUSIC SPECIALIST. Regular consistency diet/thin liquids recommended. Patientuses intermittent finger/lingual sweep and liquid wash to clear residue. Barriers: Dysarthria Overcoming Barriers: Oral motor exercises, speech intelligibility drills Madie Oneill PTA [employer] Physical Therapy Plan of Care Signed Date [...] * Plan of Care - Paresh Prieto, MUSIC SPECIALIST - 12/21/2023 1:29 PM CDT Problem: MUSIC SPECIALIST Misc Goal: MUSIC SPECIALIST LTG - Misc 1 Description: Patient to perform short term memory tasks using compensatory strategies with 80% accuracy. Outcome: Progressing Note: Current Functional Status: MUSIC SPECIALIST Cognition: Mild/moderate cognitive deficits in short term memory and thought organization. MUSIC SPECIALIST Communication: Mild dysarthric speech. MUSIC SPECIALIST Swallowing: Swallow assessed by MUSIC SPECIALIST. Regular consistency diet/thin liquids recommended. Patientuses intermittent finger/lingual sweep and liquid wash to clear residue. Barriers: Cognition Overcoming Barriers: Short term recall tasks, compensatory strategies, daily recall of activities Goal: MUSIC SPECIALIST LTG - Misc 2 Description: Patient to perform functional problem solving/reasoning tasks with 80% accuracy. Outcome: Progressing Note: Current Functional Status: MUSIC SPECIALIST Cognition: Mild/moderate cognitive deficits in short term memory and thought organization. MUSIC SPECIALIST Communication: Mild dysarthric speech. MUSIC SPECIALIST Swallowing: Swallow assessed by MUSIC SPECIALIST. Regular consistency diet/thin liquids recommended. Patientuses intermittent finger/lingual sweep and liquid wash to clear residue. Barriers: Cognition Overcoming Barriers: Problem solving/reasoning tasks, verbal cues Goal: MUSIC SPECIALIST [facility] 3 Description: Patient to attend to left visual field 80% of the time given 2-3 verbal prompts. Outcome: Progressing Note: Current Functional Status: MUSIC SPECIALIST Cognition: Mild/moderate cognitive deficits in short term memory and thought organization. MUSIC SPECIALIST Communication: Mild dysarthric speech. MUSIC SPECIALIST Swallowing: Swallow assessed by MUSIC SPECIALIST. Regular consistency diet/thin liquids recommended. Patientuses intermittent finger/lingual sweep and liquid wash to clear residue. Barriers: Cognition, left visual field inattention Overcoming Barriers: visual scanning tasks, verbal cues/prompts Goal: MUSIC SPECIALIST [facility] 4 Description: Patient's speech to be 90% intelligible during conversational tasks utilizing compensatory strategies. Outcome: Progressing Note: Current Functional Status: MUSIC SPECIALIST Cognition: Mild/moderate cognitive deficits in short term memory and thought organization. MUSIC SPECIALIST Communication: Mild dysarthric speech. MUSIC SPECIALIST Swallowing: Swallow assessed by MUSIC SPECIALIST. Regular consistency diet/thin liquids recommended. Patientuses intermittent [...] from falls Outcome: Progressing Flowsheets (Taken 12/21/2023 124) Patient will remain free from falls: Assess [...] SLP - 12/20/2023 10:15 AM CDT Problem: MUSIC SPECIALIST Misc Goal: MUSIC SPECIALIST LTG - Misc 1 Description: Patient to perform short term memory tasks using compensatory strategies with 80% accuracy. Outcome: Progressing Goal: MUSIC SPECIALIST LTG - Misc 2 Description: Patient to perform functional problem solving/reasoning tasks with 80% accuracy. Outcome: Progressing Goal: MUSIC SPECIALIST LTG - Misc 3 Description: Patient to attend to left visual field 80% of the time given 2-3 verbal prompts. Outcome: Progressing Goal: MUSIC SPECIALIST LTG - Misc 4 Description: Patient's speech [...] of Care - Lizette Mike RN - 12/19/2023 10:22 AM CDT [...] mobility safety and strengthening towards discharge home LLER WORKER * Plan of Care - Lizette Mike [...] of discharge needs will improve Outcome: Progressing LLER WORKER * Plan of Care - Lyn Paniagua RN - 12/18/2023 12:30 AM CST Problem: Bladder/Voiding Goal: Patient will be continent of urine Outcome: Progressing Problem: Fall Risk Goal: Patient will remain free from falls Outcome: Progressing Goals: Clinical Goals for the Shift: safety Summary: patient has remained free from fall fall precautions in place will continue to work with therapies for further improved mobility safety and strengthening towards discharge home LLER WORKER * IPOC (4 Day Plan of Care) - Becky Montana MD - 12/17/2023 11:24 AM CST [facility] Rehabilitation Individualized Interdisciplinary Plan of Care Name: Gunjan Gtz Jr. : 1945 Age: 78 y.o. Gender: male Room/Bed: [facility]/[id number] Admit: 12/15/2023 2:14 PM Rehab Diagnosis: Rehab [...] assist of 1 (12/16/2023 12:04 PM) Cognition/Communication/Swallowing: MUSIC SPECIALIST Cognition: Treatment Note 12/13/2023: MENTAL STATUS: Patient awake, sitting up in chair. Reports improvement with double vision. COGNITION: Cognitive deficits in short term memory and insight. TREATMENT ACTIVITIES: Recall daily activities/recent events with 100% accuracy Oral motor exercises 10xs each Oriented x4 (12/14/2023 1:53 PM) MUSIC SPECIALIST Communication: Treatment Note 12/13/2023: COMMUNICATION: Mild dysarthric speech. (12/14/2023 1:53PM) MUSIC SPECIALIST Swallowing: Treatment Note 12/13/2023: SWALLOWING: Swallow assessed by MUSIC SPECIALIST. Regular consistencydiet/thin liquids recommended. Patient's reports patient having difficulty with food getting stuck on left side of mouth. CAMERA ASSEMBLER changed diet to mechanical soft/thin liquids. (12/14/2023 [...] discharge needs will improve 12/15/23 -- Problem: MUSIC SPECIALIST Misc Start Date: 12/16/23 Goal Start Date End Date [facility] - [facility] 1 12/16/23 -- Goal Details: Patient to perform short term memory tasks using compensatory strategies with 80% accuracy. Goal Start Date End Date [facility] - Misc 2 12/16/23 -- Goal Details: Patient to perform functional problem solving/reasoning tasks with 80% accuracy. Goal Start Date End Date [facility] - [facility] 3 12/16/23 -- Goal Details: Patient to attend to left visual field 80% of the time given 2-3 verbal prompts. Goal Start Date End Date [facility] - [facility] 4 12/16/23 -- Goal Details: Patient's speech to be 90% intelligible during conversational tasks utilizing compensatory strategies. Problem: PT [facility] Start Date: 12/16/23 Goal Start Date [...] family training session 12/16/23 -- Problem: OT [facility] Start Date: 12/16/23 Goal Start Date End Date OT [facility] 1 12/16/23 -- Goal Details: Patient will complete basic ADL routine including: bathing in shower, LE dressing, footwear, UB dressing, and grooming tasks with min assist and appropriate compensatory strategies. Goal Start Date End Date [facility] 2 12/16/23 -- Goal Details: Patient will complete simulated car transfer using appropriate device with min assist Goal Start Date End Date OT [facility] 3 12/16/23 -- Goal Details: Patient will complete toileting and toilet transfer with min assist and appropriate device. Goal Start Date End Date OT [facility] 4 12/16/23 -- Goal Details: Patient will complete functional/meaningful task in standing for 3-5 minutes with minassist for balance one time. Goal Start Date End Date OT [facility] 5 12/16/23 -- Goal Details: Patient will complete HEP (LUE SROM/RUE AROM) to improve BUE ROM/strength/endurance and ADL participation with min verbal cues 1 time. Goal Start Date End Date [facility] 6 12/16/23 -- Goal Details: Patient family/caregiver will attend one OT session and be aware of discharge needs/plans Goal Start Date End Date OT [facility] 7 12/16/23 -- Goal Details: Patient will complete medication management for 2-3 prescriptions with 100% accuracy and no additional cues one time. Interdisciplinary Team: Therapies required to achieve goals:The patient will benefit from integrated coordination of care from the following interdisciplinary services: Medical Supervision, 24 hours Rehabilitation Nursing, Physical Therapy, Occupational Therapy, Case Management; Social Work; Therapeutic Recreation; SpeechTherapy; Satellite Manager Intensity and Frequency: Expected intensity and frequency [...] Expected intensity and frequency of Speech Therapy (MUSIC SPECIALIST): 1 hour per day per day over 5-7 days per week for the duration of length of stay The established therapy intensity and frequency noted above may be modified to accommodate individualized patient needs. Clinical Summation since admission: expect progress with continued therapy Comments: agree with above. Bowel regimen LLER WORKER * Plan of Care - Gela Gann [...] maintained and comfort monitored. New orders noted. LLER WORKER * Plan of Care - Paresh Prieto SLP - 12/17/2023 10:02 AM CST Problem: MUSIC SPECIALIST Misc Goal: MUSIC SPECIALIST LTG - Misc 1 Description: Patient to perform short term memory tasks using compensatory strategies with 80% accuracy. Outcome: Progressing Goal: MUSIC SPECIALIST LTG - Misc 2 Description: Patient to perform functional problem solving/reasoning tasks with 80% accuracy. Outcome: Progressing Goal: MUSIC SPECIALIST LTG - Misc 3 Description: Patient to attend to left visual field 80% of the time given 2-3 verbal prompts. Outcome: Progressing Goal: MUSIC SPECIALIST LTG - Misc 4 Description: Patient's speech to be 90% intelligible during conversational tasks utilizing compensatory strategies. 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 [...] Coverage: [employer] Prescription Coverage: yes Pharmacy: [facility] [address] [facility] [address] Primary Care Provider: Wolfgang Serrano MD Prior to Admission: Functional Status: Independent with ADLs Primary Caregiver: Self Support System: Spouse/Significant Other, Children Home Care Services: No (has had c a couple of years ago with new replacement) Outpatient Services: Yes Therapy: Physical Therapy Location: [facility] in [place] Durable Medical Equipment: Walker (wheeled), Rollator, Cane (single prong), Tub bench Living Arrangements: Spouse/significant other Type of Residence: Private residence Steps in home?: Yes, Outside of home, Yes, Inside home Number of steps inside: 17 steps (to the basement) Number of steps outside: 2 steps (from garage or the front) Medication management: Independent ([facility]) (12/16/23 3376) SDOH: Transportation: In the past 12 months, has lack of transportation kept you from medical appointments or from getting medications?: No In the past 12 months, has lack of transportation kept you from meetings, work, or from getting things needed for daily living?: No (12/16/23 3004) Financial Resource: How hard is it for you to pay for the very basics like food, housing, medical care, and heating?: Not hard at all (12/16/23 141) Housing: In the last 12 months, was there a time when you were not able to pay the mortgage or rent on time?: No In the last 12 months, how many places have you lived?: 1 In the last 12 months, was there a time when you did not have a steady place to sleep or slept in ashelter (including now)?: No (12/16/23 141) Social Connections: In a typical week, how many times do you talk on the phone with family, friends, or neighbors?: More than three times a week How often do you get together with friends or relatives?: More than three times a week How often do you attend moravian or gnosticist services?: More than 4 times per year Do you belong to any clubs or organizations such as moravian groups, unions, fraternal [...] Occupational therapy Community Resources: Homemaker services (12/16/23 538) Dialysis: N/a Behavioral Health Services: Behavioral Health Services: No (12/16/231555) Patient expects to be Discharged to: Private residence, (12/16/231555) Additional Information: Sw met with pt and spouse at the bedside. Pt is from home with spouse. Pt and spouse both have 3 children a piece. Most of kids live out of town. One dtr lives in town but sheis currently . 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 Spousehas been considering giving one up prior to pt's stroke. Pt is a but didn't serve in wartime. Pt's PCP is ebony Serrano, and gets meds from [facility] in [place]. Pt's spouse not sure ifshe will be [...] Collaboration with patient, MD, direct care nurse, Licensed Occupational Therapy Assistant, and other members of the health care team to assure needed interventions completed. 2. Return patient to optimal level of self-care post discharge. 3. Skimmer will follow for Discharge Planning - interventions as needed 4. Anticipated level of care at discharge 5. Planned Discharge Disposition QUAN Zacarias, [facility] [phone] LLER WORKER * Plan of Care - Vanessa Zaman, [...] to attend family training session Outcome: Progressing LLER WORKER * Plan of Care - Gela Gann [...] Summary: Patient safety maintained and comfort monitored. LLER WORKER * Plan of Care - Lianet Reyna [...] Goals for the Shift: VSS, Safety Summary: LLER WORKER * Plan of Care - Cinthya Watters [...] of discharge needs will improve Outcome: Progressing LLER WORKER documented in this encounter Plan of Treatment Upcoming Encounters Date Type Department Care Team (Latest Contact Info) Description 10/23/2024 10:00 AM EXPELLER WORKER Hospital Encounter [facility] [address] [place] [id number] [place] [address] [address] 10/23/2024 10:00 AM EXPELLER WORKER - 10/23/2024 1:00 PM EXPELLER WORKER Surgery [facility] [address] [place] [address] [place] [address] [address] ARTHROPLASTY TOTAL KNEE LEFT Scheduled Procedures Name Priority Associated Diagnoses Date/Ti me ARTHROPLASTY TOTAL KNEE left knee osteoarthritis 10/23/2024 10:00 AM EXPELLER WORKER ESOPHAGOGASTRODUODENOSCOPY Dysphagia, unspecified type Scheduled Referrals Name [...] AM CDT EGFR Routine 12/16/2023 4:11 AM EXPELLER WORKER DIFFERENTIAL AUTO Routine 12/16/2023 4:1 1 AM EXPELLER WORKER CBC WITH AUTO DIFFERENTIAL Routine 12/16/2023 4:11 AM EXPELLER WORKER COMPREHENSIVE METABOLIC PANEL Routine 12/16/2023 4:11 AM EXPELLER WORKER documented in this encounter Results * eGFR [...] BLOOD ORDERABL ES Final Result MARVIN FISHER [address] [address] Department [place] [address] * (ABNORMAL) Differential, auto (01/03/2024 4:23 AM CDT) Neutrophil abs 4.3 1.5 - 6.5 K/cumm Imm gran abs 0.0 0.0 - 0.1 K/cumm [facility] Lymphocyte abs 2.3 0.8 - 3.3 K/cumm [facility] Monocyte abs 1.0(H) 0.2 - 0.8 K/cumm [facility] Eosinophil abs 0.3 0.0 - 0.5 K/cumm [facility] Basophil abs 0.1 0.0 - 0.1 K/cumm [facility] Neutrophil pct 53.6 % [facility] Comment: Interpretive Data Percent cell count reference ranges are not reported, since discordance with absolute values may lead to misinterpretation of CBC data. Current Interpretive Data was last revised on 2018. Imm gran pct 0.1 % [facility] Comment: Interpretive Data Percent cell count reference ranges are not reported, since discordance with absolute values may lead to misinterpretation of CBC data. Current Interpretive Data was last revised on 2018. Lymphocyte pct 28.8 % [facility] Comment: Interpretive Data Percent cell count reference ranges are not reported, since discordance with absolute values may lead to misinterpretation of CBC data. Current Interpretive Data was last revised on 2018. Monocyte pct 12.2 % [facility] Comment: Interpretive Data Percent cell count reference ranges are not reported, since discordance with absolute values may lead to misinterpretation of CBC data. Current Interpretive Data was last revised on 2018. Eosinophil pct 4.3 % [facility] Comment: Interpretive Data Percent cell count reference ranges are not reported, since discordance with absolute values may lead to misinterpretation of CBC data. Current Interpretive Data was last revised on 2018. Basophil pct 1.0 % [facility] Comment: Interpretive Data Percent cell count reference ranges are not reported, since discordance with absolute values may lead to misinterpretation of CBC data. Current Interpretive Data was last revised on 2018. Blood 01/03/2024 4:23 AM CDT 01/03/2024 4:51 AM CDT us Becky Montana MD LAB BLOOD ORDERABL ES Final Result MARVIN [address] [address] Department [place] [address] * (ABNORMAL) CBC with auto differential (01/03/2024 4:23 AM CDT) [facility] WBC 8.0 3.8 - 9.9 K/cumm Hgb 11.7(L) 13.0 - 17.5 g/dL [facility] Hct 35.6(L) 38.9 - 50.3 % [facility] Plt 228 150 - 400 K/cumm [facility] MPV 11.0 9.1 - 12.3 fL [facility] RBC 3.74(L) 4.30 - 5.80 M/cumm [facility] MCV 95.2 81.3 - 96.4 fL [facility] MCH 31.3 27.1 - 33.3 pg [facility] MCHC 32.9 32.3 - 35.7 g/dL [facility] RDW CV 13.2 11.1 - 14.9 % [facility] RDW SD 46.9 35.7 - 48.1 fL [facility] NRBC abs 0.00 0.00 - 0.01 K/cumm [facility] Blood 01/03/2024 4:23 AM CDT 01/03/2024 4:51 AM CDT us Becky Montana MD LAB BLOOD ORDERABL ES Final Result [facility] [address] [address] Department [place] [address] * (ABNORMAL) Comprehensive metabolic panel (01/03/2024 4:23 AM CDT) [facility] Sodium 141 135 - 145 mmol/L Potassium, pl 4.2 3.3 - 4.9 mmol/L [facility] Chloride 108 97 - 110 mmol/L [facility] CO2 26 22 - 32 mmol/L [facility] Anion gap 7 2 - 15 mmol/L [facility] BUN 12 6 - 25 mg/dL [facility] Creatinine 1.22 0.80 - 1.30 mg/dL [facility] Glucose 105 70 - 199 mg/dL [facility] Comment: Interpretive Data Fasting glucose >/= [...] BLOOD ORDERABL ES Final Result MARVIN FISHER [address] [address] Department [place] [address] * eGFR (12/27/2023 4:38 AM CDT) [facility] eGFR 56 mL/min/1. 73 m2 Comment: Interpretive [...] MD LAB BLOOD ORDERABL ES Final Result [facility] [address] [address] Department [place] [address] * Differential, auto (12/27/2023 4:38 AM CDT) Neutrophil abs 3.8 1.5 - 6.5 K/cumm Imm gran abs 0.0 0.0 - 0.1 K/cumm [facility] Lymphocyte abs 1.9 0.8 - 3.3 K/cumm [facility] Monocyte abs 0.6 0.2 - 0.8 K/cumm [facility] Eosinophil abs 0.4 0.0 - 0.5 K/cumm [facility] Basophil abs 0.1 0.0 - 0.1 K/cumm [facility] Neutrophil pct 56.5 % [facility] Comment: Interpretive Data Percent cell count reference ranges are not reported, since discordance with absolute values may lead to misinterpretation of CBC data. Current Interpretive Data was last revised on 2018. Imm gran pct 0.3 % [facility] Comment: Interpretive Data Percent cell count reference ranges are not reported, since discordance with absolute values may lead to misinterpretation of CBC data. Current Interpretive Data was last revised on 2018. Lymphocyte pct 27.7 % [facility] Comment: Interpretive Data Percent cell count reference ranges are not reported, since discordance with absolute values may lead to misinterpretation of CBC data. Current Interpretive Data was last revised on 2018. Monocyte pct 9.4 % [facility] Comment: Interpretive Data Percent cell count reference ranges are not reported, since discordance with absolute values may lead to misinterpretation of CBC data. Current Interpretive Data was last revised on 2018. Eosinophil pct 5.4 % [facility] Comment: Interpretive Data Percent cell count reference ranges are not reported, since discordance with absolute values may lead to misinterpretation of CBC data. Current Interpretive Data was last revised on 2018. Basophil pct 0.7 % [facility] Comment: Interpretive Data Percent cell count reference ranges are not reported, since discordance with absolute values may lead to misinterpretation of CBC data. Current Interpretive Data was last revised on 2018. Blood 12/27/2023 4:38 AM CDT 12/27/2023 5:00 AM CDT us Becky Montana MD LAB BLOOD ORDERABL ES Final Result [facility] [address] [address] Department [place] [address] * (ABNORMAL) CBC with auto differential (12/27/2023 4:38 AM CDT) WBC 6.7 3.8 - 9.9 K/cumm Hgb 12.8(L) 13.0 - 17.5 g/dL [facility] Hct 39.3 38.9 - 50.3 % [facility] Plt 235 150 - 400 K/cumm [facility] MPV 10.4 9.1 - 12.3 fL [facility] RBC 4.10(L) 4.30 - 5.80 M/cumm [facility] MCV 95.9 81.3 - 96.4 fL [facility] MCH 31.2 27.1 - 33.3 pg [facility] MCHC 32.6 32.3 - 35.7 g/dL [facility] RDW CV 13.0 11.1 - 14.9 % [facility] RDW SD 46.0 35.7 - 48.1 fL [facility] NRBC abs 0.00 0.00 - 0.01 K/cumm [facility] Blood 12/27/2023 4:38 AM CDT 12/27/2023 5:00 AM CDT us Becky Montana MD LAB [place] [address] [address] Department [place] [address] * (ABNORMAL) Comprehensive metabolic panel (12/27/2023 4:38 [...] LAB BLOOD ORDERABL ES Final Result MARVIN [address] [address] Department [place] [address] * XR Shoulder Left 2 or More [...] MD LAB BLOOD ORDERABL ES Final Result Performing Organization Address City/State/[facility] Co de Phone Number [facility] [phone] [address] Department [place] [address] * (ABNORMAL) Differential, auto (12/20/2023 4:04 AM CDT) Neutrophil abs 5.0 1.5 - 6.5 K/cumm Imm gran abs 0.0 0.0 - 0.1 K/cumm [facility] Lymphocyte abs 1.4 0.8 - 3.3 K/cumm [facility] Monocyte abs 1.2(H) 0.2 - 0.8 K/cumm [facility] Eosinophil abs 0.1 0.0 - 0.5 K/cumm [facility] Basophil abs 0.1 0.0 - 0.1 K/cumm [facility] Neutrophil pct 63.4 % [facility] Comment: Interpretive Data Percent cell count [...] was last revised on 2018. Blood 12/20/2023 4:04 AM CDT 12/20/2023 4:39 AM CDT us Becky Montana MD LAB BLOOD ORDERABL ES Final Result [facility] [address] [address] Department [place] [address] * CBC with auto differential (12/20/2023 4:04 AM CDT) WBC 7.9 3.8 - 9.9 K/cumm Hgb 13.7 13.0 - 17.5 g/dL [facility] Hct 42.0 38.9 - 50.3 % [facility] Plt 253 150 - 400 K/cumm [facility] MPV 10.7 9.1 - 12.3 fL [facility] RBC 4.36 4.30 - 5.80 M/cumm [facility] MCV 96.3 81.3 - 96.4 fL [facility] MCH 31.4 27.1 - 33.3 pg [facility] MCHC 32.6 32.3 - 35.7 g/dL [facility] RDW CV 13.1 11.1 - 14.9 % [facility] RDW SD 46.9 35.7 - 48.1 fL [facility] NRBC abs 0.00 0.00 - 0.01 K/cumm [facility] Blood 12/20/2023 4:04 AM CDT 12/20/2023 4:39 AM CDT us Becky Montana MD LAB BLOOD ORDERABL ES Final Result [facility] [address] [address] Department [place] [address] * (ABNORMAL) Comprehensive metabolic panel (12/20/2023 4:04 AM CDT) Sodium 139 135 - 145 mmol/L Potassium, pl 4.6 3.3 - 4.9 mmol/L [facility] Chloride 104 97 - 110 mmol/L [facility] CO2 25 22 - 32 mmol/L [facility] Anion gap 10 2 - 15 mmol/L [facility] BUN 19 6 - 25 mg/dL [facility] Creatinine 1.25 0.80 - 1.30 mg/dL [facility] Glucose 112 70 - 199 mg/dL [facility] Comment: Interpretive Data Fasting glucose >/= [...] MD LAB BLOOD ORDERABL ES Final Result [facility] [address] [address] Department [place] [address] * eGFR (12/16/2023 4:11 AM EXPELLER WORKER) eGFR 69 mL/min/1. 73 m2 Comment: Interpretive [...] Inclusion of Race in Diagnosing Kidney Disease, MARIBELSArnulfo 2020). The CKD-EPI equation should not be used for patients with unstable renal function and has not been validated in children and those over 70. Current interpretive data was last reviewed 2021. Blood 12/16/2023 4:11 AM EXPELLER WORKER 12/16/2023 4:28 AM EXPELLER WORKER us Becky Montana MD LAB BLOOD ORDERABL ES Final Result [facility] [address] [address] Department of Laboratories [place], [place] [id number] * (ABNORMAL) Differential, auto (12/16/2023 4:11 AM EXPELLER WORKER) Neutrophil abs 5.5 1.5 - 6.5 K/cumm Imm gran abs 0.0 0.0 - 0.1 K/cumm [facility] Lymphocyte abs 2.2 0.8 - 3.3 K/cumm [facility] Monocyte abs 1.1(H) 0.2 - 0.8 K/cumm [facility] Eosinophil abs 0.3 0.0 - 0.5 K/cumm [facility] Basophil abs 0.1 0.0 - 0.1 K/cumm [facility] Neutrophil pct 60.3 % [facility] Comment: Interpretive Data Percent cell count reference ranges are not reported, since discordance with absolute values may lead to misinterpretation of CBC data. Current Interpretive Data was last revised on 2018. Imm gran pct 0.3 % [facility] Comment: Interpretive Data Percent cell count reference ranges are not reported, since discordance with absolute values may lead to misinterpretation of CBC data. Current Interpretive Data was last revised on 2018. Lymphocyte pct 23.7 % [facility] Comment: Interpretive Data Percent cell count reference ranges are not reported, since discordance with absolute values may lead to misinterpretation of CBC data. Current Interpretive Data was last revised on 2018. Monocyte pct 11.5 % [facility] Comment: Interpretive Data Percent cell count [...] revised on 2018. Blood 12/16/2023 4:11 AM EXPELLER WORKER 12/16/2023 4:27 AM EXPELLER WORKER us Becky Montana MD LAB BLOOD ORDERABL ES Final Result [facility] [address] [address] Department [place] [address] * (ABNORMAL) CBC with auto differential (12/16/2023 4:11 AM EXPELLER WORKER) WBC 9.2 3.8 - 9.9 K/cumm Hgb 13.3 13.0 - 17.5 g/dL [facility] Hct 40.3 38.9 - 50.3 % [facility] Plt 259 150 - 400 K/cumm [facility] MPV 10.1 9.1 - 12.3 fL [facility] RBC 4.14(L) 4.30 - 5.80 M/cumm [facility] MCV 97.3(H) 81.3 - 96.4 fL [facility] MCH 32.1 27.1 - 33.3 pg [facility] MCHC 33.0 32.3 - 35.7 g/dL [facility] RDW CV 13.2 11.1 - 14.9 % [facility] RDW SD 46.9 35.7 - 48.1 fL [facility] NRBC abs 0.00 0.00 - 0.01 K/cumm [facility] Blood 12/16/2023 4:11 AM EXPELLER WORKER 12/16/2023 4:27 AM EXPELLER WORKER us Becky Montana MD LAB BLOOD ORDERABL ES Final Result [facility] [address] [address] [place] [address] * (ABNORMAL) Comprehensive metabolic panel (12/16/2023 4:11 AM EXPELLER WORKER) Sodium 138 135 - 145 mmol/L Potassium, [...] Units/L [facility] Blood 12/16/2023 4:11 AM EXPELLER WORKER 12/16/2023 4:28 AM EXPELLER WORKER us Becky Montana MD LAB BLOOD ORDERABL ES Final Result [facility] FISHER [address] [address] [place] [address] documented in this encounter Visit Diagnoses Diagnosis [...] tablet/capsule., Indications: constipationIndications:constipation Given 12/17/2023 1:00 PM EXPELLER WORKER 10 mg calcium carbonate (TUMS) chewable tablet [...] inhaler 1 puff 1 puff, inhalation, Daily (respite provider), First dose (after last modification) on Wed12/16/23 [...] Jo 12/16/23 at 0900, Indications: Secondary Stroke PreventionIndications:Secondary Stroke [...] CDT 1 tablet Given 12/18/2023 8:39 AM EXPELLER WORKER 1 tablet simethicone (MYLICON) chewable tablet 80 [...] 0832 (Given - Provider: Nelli Gamez RN) cetirizine (ZyrTEC) tablet 10 mg 10 mg, [...] 2045 (Given - Provider: Gurdeep Williamson LPN) enoxaparin (LOVENOX) syringe 40 mg 40 mg, subcutaneous, Daily (for enoxaparin), First dose (after last modification) on Wed12/15/23 at 2100, Indications: Deep Vein Thrombosis Prevention 213 (Given - Provider: Katlyn Camarillo RN) 2045 (Given - Provider: Gurdeep Williamson LPN) fluticasone furoate-vilanteroL (BREO ELLIPTA) 100-25 mcg/dose inhaler 1 puff 1 puff, inhalation, Daily (respite provider), First dose (after last modification) on Wed12/16/23 at 0900 0842 (Given - Provider: Alis Martinez PIN SETTER) 0800 (Given - Provider: Aminta Workman, TELEGRAPHIC TYPEWRITER OPERATOR CHIEF) 0900 (Due) fluticasone propionate (FLONASE) 50 mcg/actuation [...] Mike RN)1636 (Given - Provider: Yady Sandhu RN)2130 (Given - Provider: Katlyn Camarillo RN) [...] tablet/capsule. 0849 (Given - Provider: Lizette Mike RN)2129 (Given - Provider: Katlyn Camarillo RN) 0834 (Given - Provider: Jewels Reeves RN)2045 (Given - Provider: Gurdeep Williamson LPN) 0833 (Given - Provider: Nelli Gamez, MARAH) hydrocortisone 2.5 % cream topical, 2 times [...] 2 puff, inhalation, Every 4 hours PRN (respite provider), wheezing, shortness of breath, Starting on Wed12/15/23 [...] 12/15/2023 documented in this encounter Care Teams Centralized Traffic Control Operator Relationship Specialty Start Date End Date Wolfgang Serrano MD PCP - General Family Medicine 05/05/23 08/02/24 Unknown, Notinfile 03/12/22 [place] [address] [facility] [address] [place] [address] 03/12/22 Chuy Enriquez MD [address] [facility] [address] [place] [address] Consulting Physician Pulmonary Disease 10/13/23 Luis Felipe Cedillo MD [address] [facility] [address], [place] [address] Consulting Physician Gastroenterology 10/13/23 Marlene Thornton MD [address] [facility] [address], [place] [address] Surgeon Vascular Surgery 11/10/23 documented as of this encounter
--- OUTSIDE RECORDS SUMMARY | 2024-10-11 03:03 | XMS_ITS | Encounter Summary ---
Author Organization [facility] Address [address] [place] [address] Care Team Providers Care Director Of Campus Recreation Name Role Phone Santino Funk MD Primary Care Provider + Unknown, Notinfile Unavailable Unavailable Santino Funk MD Unavailable [phone] Reason for Visit * Reason Comments Alzheimer's Disease Encounter Details Date Type Department Care Team (Late st Contact Info) Description 12/03/2022 1:00 PM WARD HELPER Office Visit [facility] [address] [address] Nayan Mahajan II, [place] [id number] [place] [address] [address] [address] Hereditary and idiopathic neuropathy (Primary [...] on file Legal Sex Male 3:25 PM WARD HELPER Gender Identity Not on file Sexual Orientation Not on file documented as of this encounter Last Filed Vital Signs Vital Sign Reading Time Taken Comments Blood Pressure 122/60 12/03/2022 1:17 PM WARD HELPER Pulse 67 12/03/2022 1:17 PM WARD HELPER Temperature - - Respiratory Rate 16 12/03/2022 1:17 PM WARD HELPER Oxygen Saturation 96% 12/03/2022 1:17 PM WARD HELPER Inhaled Oxygen Concentration - - Weight 105 kg (231 lb 7.7 oz) 12/03/2022 1:17 PM WARD HELPER Height 177.8 cm (5' 10 ) 12/03/2022 1:17 PM WARD HELPER Body Mass Index 33.21 12/03/2022 1:17 PM WARD HELPER documented in this encounter Ordered Prescriptions Prescription [...] Patellar 0 0 Achilles 0 0 Coordination [id number]-[id number], rapid alternating movements and vuzs-az-aqea normal bilaterally without dysmetria. Gait Casual gait [...] condyle of left femur (CMS/HCC) ([facility] [place] [facility]) 08/30/2018 Closed fracture of left [...] of breast 02/01/2018 Edema 04/04/2020 Intermittent claudication ([facility] [place] [facility]) ([facility]) 04/04/2020 Iron deficiency anemia 04/04/2020 Peripheral vascular disease ([facility] [place] [facility]) ([facility]) 04/04/2020 Pain due to total right knee replacement ([facility] [place] [facility]) ([facility]) 04/28/2022 Hamstring tendinitis of right thigh 04/28/2022 Quadriceps weakness 04/28/2022 Idiopathic peripheral neuropathy Abnormality of gait and mobility Hx of total knee replacement, right 12/01/2022 Neuropathy ([facility] [place] [facility]) 12/01/2022 Resolved Ambulatory Problems Diagnosis Date Noted No Resolved Ambulatory Problems Past Medical History: Diagnosis Date Acute gastric ulcer without hemorrhage or perforation Alzheimer's dementia ([facility]) Asthma Back pain Cataract Clotting disorder ([facility] [place] [facility]) ([facility]) Cramps of lower extremity Diverticulitis of colon Easy bruisability Fatigue Frequent urination Gastroesophageal reflux disease Hypothyroidism Incontinence of urine Muscle weakness Osteoarthritis Peptic ulcer Seizures (CMS/[facility]) ([facility]) 1997 SOB (shortness of breath) [...] or 4 Frequency of Binge Drinking: Never HELPER documented in this encounter Plan of Treatment Upcoming Encounters Date Type Department Care Team (Latest Contact Info) Description 10/23/2024 10:00 AM WARD HELPER Hospital Encounter [facility] Operating Room [address] [place] [address] [place] [address] [facility] [address] [place] [address] 10/23/2024 10:00 AM WARD HELPER - 10/23/2024 1:00 PM [facility] Surgery [facility] Operating Room [address] [place] [address] [place] [address] [address] ARTHROPLASTY TOTAL KNEE LEFT Scheduled Procedures Name Priority Associated Diagnoses Date/Ti me ARTHROPLASTY TOTAL KNEE left knee osteoarthritis 10/23/2024 10:00 AM WARD HELPER ESOPHAGOGASTRODUODENOSCOPY Dysphagia, unspecified type documented as [...] documented as of this encounter Care Teams Director Of Campus Recreation Relationship Specialty [place] [address] [facility] [place] [address] PCP - General Internal Medicine 09/30/22 05/04/23 Unknown, Notinfile 03/12/22 [place] [address] [facility] [place] [address] 03/12/22 documented as of this encounter
--- OUTSIDE RECORDS SUMMARY | 2024-10-11 03:03 | XMS_ITS | Encounter Summary ---
Author Organization [facility] Address [address] 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 Biceps tendinitis of left upper extremity Procedures Large Joint (Hip, Knee, Shoulder) Injection: [place] [address] [address] [place] [address] Phone: tel: fax: [facility] Referral ID Status Reason Start Date Expiration Date Visits Re quested Visits Authorized [id number] Closed 03/23/2023 04/21/2024 1 1 * Procedure (Routine) - Closed Specialty Diagnoses / Procedures Referred By Contac t Referred To Contact Diagnoses Primary osteoarthritis of both knees Procedures Large Joint (Hip, Knee, Shoulder) [place]: [place] [address] [address] [place] [address] Phone: tel: fax: [facility] Referral ID Status Reason Start Date Expiration Date Visits Re quested Visits Authorized [id number] Closed 03/23/2023 04/21/2024 1 1 * Diagnostic Imaging (Routine) - Closed Specialty Diagnoses / Procedures Referred By Contac t Referred To Contact Diagnoses Left shoulder pain, unspecified chronicity Procedures XR Shoulder Left 4 [place] [address] [address] Phone: tel: fax: [facility] Referral ID Status Reason Start Date Expiration Date Visits Re quested Visits Authorized [id number] Closed 03/23/2023 04/21/2024 1 1 Reason for Visit * Reason Comments Pain Injections Encounter Details Date Type Department Care Team (Latest Contact Info) Description 03/23/2023 8:15 AM CDT Office Visit [facility] Orthopedics & Sports Medicine at [facility] [id number] [place] [phone] [place] [address] [place] [address] 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 Three times a week 11/25/2021 Attends [employer] Not on file 11/25 Active Member [...] in a fci (including now)? No 11/25/2021 Sex and Gender Information Value Date Recorded Sex Assigned at Not on file Legal Sex Male 3:25 PM STOPPERER ASSEMBLER Gender Identity Not on file Sexual [...] this so far. 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 MEDICATIONS He has a current medication list [...] (Latest Contact Info) Description 10/23/2024 10:00 AM STOPPERER ASSEMBLER Hospital Encounter [facility] Operating Room [address] [place] [address] [place] [address] [address] 10/23/2024 10:00 AM STOPPERER ASSEMBLER - 10/23/2024 1:00 PM STOPPERER ASSEMBLER Surgery [facility] Operating Room [address] [place] [address] [place] [address] [address] ARTHROPLASTY TOTAL KNEE LEFT Scheduled Procedures Name Priority Associated Diagnoses Date/Ti me ARTHROPLASTY TOTAL KNEE left knee osteoarthritis 10/23/2024 10:00 AM STOPPERER ASSEMBLER ESOPHAGOGASTRODUODENOSCOPY Dysphagia, unspecified type documented as of this encounter Procedures Procedure Name Priority Date/Time Associated Diagnosis Comments XR SHOULDER LEFT 2 OR MORE VIEWS Schedule Routine, Read Routine (OP Routine) 03/23/2023 8:59 AM CDT 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 SD ARTHROCENTESIS ASPIR&/INJ MAJOR JT/BURSA W/O US Routine 03/23/2023 8:15 AM CDT 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 Biceps tendinitis of left upper extremity SD ARTHROCENTESIS ASPIR&/INJ MAJOR JT/BURSA W/O US Routine [...] IMG XR PROCEDURES Final Resul t * SD ARTHROCENTESIS ASPIR&/INJ MAJOR JT/BURSA W/O US (03/23/2023 [...] SANDOVAL IN CLINIC/BEDSIDE ORDERABLES Final Result * SD ARTHROCENTESIS ASPIR&/INJ MAJOR JT/BURSA W/O US (03/23/2023 [...] 02/03/2023 added in this encounter Care Teams Heel Turner Relationship Specialty [place] [address] [address] PCP - General Internal Medicine 09/30/22 05/04/23 Unknown, Notinfile 03/12/22 [place] [address] [address] [address] 03/12/22 documented as of this encounter
--- OUTSIDE RECORDS SUMMARY | 2024-10-11 03:03 | XMS_ITS | Encounter Summary ---
Author Organization [facility] Address [address] [place] [address] Care Team Providers Care Elevator Examiner And Adjuster Name Role Phone Wolfgang Serrano MD Primary Care Provider Unknown, Notinfile Unavailable Unavailable Santino Funk MD Unavailable Chuy Enriquez MD Unavailable [phone] Luis Felipe Cedillo MD Unavailable [phone] Marlene Thornton MD Unavailable Encounter Details Date Type Department Care Team (Latest Contact Info) Description 12/07/2023 12:45 PM MANAGER CITY - 12/07/2023 11:59 PM MANAGER CITY Hospital Encounter [facility]BULANCE BILLING [address] [place], [place] [id number] Emergency, Room R Discharge Disposition: Discharge to home or self care Social History Tobacco Use Types Packs/Day Years Used Date Smoking Tobacco: Former Cigarettes 1 966 - 1966 Smokeless Tobacco: Never Alcohol Use Standard Drinks/Week Comments Yes 1 (1 standard drink = 0.6 oz pur e alcohol) [facility] Utilities Answer Date Recorded In the [...] How often do you attend chur or quaker services? More than 4 times [...] slept in a alf (including now)? No 12/08/2023 Personal Safety Answer Date Recorded Getting School Help Needed Denies 10/10 Sex and Gender Information Value Date Recorded Sex Assigned at Not on file Legal Sex Male 3:25 PM MANAGER CITY Gender Identity Not on file Sexual Orientation [...] (Latest Contact Info) Description 10/23/2024 10:00 AM [facility] Hospital Encounter [facility] Operating Room [address] [place] [address] [place] [address] [address] 10/23/2024 10:00 AM MANAGER [place] - 10/23/2024 1:00 PM [facility] Surgery [facility] Operating Room [address] [place] [address] [place] [address] [address] ARTHROPLASTY TOTAL KNEE LEFT Scheduled Procedures Name Priority Associated Diagnoses Date/Ti me ARTHROPLASTY TOTAL KNEE left knee osteoarthritis 10/23/2024 10:00 AM MANAGER [place] ESOPHAGOGASTRODUODENOSCOPY Dysphagia, unspecified type documented as of this encounter Visit Diagnoses Not on filedocumented in this encounter Care Teams Elevator Examiner And Adjuster Relationship Specialty Start Date End Date Wolfgang Serrano MD PCP - General Family Medicine 05/05/23 08/02/24 Unknown, Notinfile 03/12/22 [place] [address] [address] [place] [address] 03/12/22 Chuy Enriquez MD [address] [place] [address] Consulting Physician Pulmonary Disease 10/13/23 Luis Felipe Cedillo MD [address], [place] [address] Consulting Physician Gastroenterology 10/13/23 Marlene Thornton MD [address], [place] [address] Surgeon Vascular Surgery 11/10/23 documented as of this encounter
--- OUTSIDE RECORDS SUMMARY | 2024-10-11 03:03 | XMS_ITS | Encounter Summary ---
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 Biceps tendinitis of left upper extremity Procedures MRI [place]er [place] [address] [address] Phone: tel: fax: [facility] Referral ID Status Reason Start Date Expiration Date Visits Re quested Visits Authorized [id number] Closed 05/04/2023 06/02/2024 1 1 Reason for Visit * Reason Comments Follow-up Follow-up Follow-up Encounter Details Date Type Department Care Team (Latest Contact Info) Description 05/04/2023 8:30 AM CDT Office Visit [facility] Orthopedics & Sports Medicine at [facility] [id number] [place] [address] [place] [phone] [place] [address] [address] 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 Three times a week 11/25/2021 Attends Muslim Services Not on file 11/25 Active Member [...] on file Legal Sex Male 3:25 PM SPECIAL EDUCATION ASSISTANT Gender Identity Not on file Sexual [...] has advanced arthritis in left knee with [id number]-cb-kezu contact.He had a right knee replacement done [...] evaluate further -his left knee has advanced paqj-yv-nwzc arthritis from x-rays taken in November. I [...] (Latest Contact Info) Description 10/23/2024 10:00 AM SPECIAL EDUCATION ASSISTANT Hospital Encounter [facility] Operating Room [id number] [place] [address] [place] [id number] [place] [id number] 10/23/2024 10:00 AM SPECIAL EDUCATION ASSISTANT - 10/23/2024 1:00 PM SPECIAL EDUCATION ASSISTANT Surgery [facility] Operating Room [id number] [place] [address] [place] [address] [phone] ARTHROPLASTY TOTAL KNEE LEFT Scheduled Procedures Name Priority Associated Diagnoses Date/Ti me ARTHROPLASTY TOTAL KNEE left knee osteoarthritis 10/23/2024 10:00 AM SPECIAL EDUCATION ASSISTANT ESOPHAGOGASTRODUODENOSCOPY Dysphagia, unspecified type documented as [...] 05/04/2023 added in this encounter Care Teams Ceo And Co Founder Relationship Specialty [place] [address] [facility] [place] [address] PCP - General Internal Medicine 09/30/22 05/04/23 Unknown, Notinfile 03/12/22 [place] [address] [address] 03/12/22 documented as of this encounter
--- OUTSIDE RECORDS SUMMARY | 2024-10-11 03:03 | XMS_ITS | Encounter Summary ---
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 Biceps tendinitis of left upper extremity Procedures MRI [place]er [place] [address] [place] [address] Phone: tel: fax: [facility] Referral ID Status Reason Start Date Expiration Date Visits Re quested Visits Authorized [id number] Closed 05/04/2023 06/02/2024 1 1 Reason for Visit * Diagnostic Imaging (Routine) - Closed Specialty Diagnoses / Procedures Referred By Contboone mccallum Referred To Contact Radiology Diagnoses 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 Biceps tendinitis of left upper extremity Procedures MRI [place] [address] [address] [facility] [address] [place] [phone] Phone: tel: fax: [facility] Referral ID Status Reason Start Date Expiration Date Visits Re quested Visits Authorized [id number] Closed 05/04/2023 06/02/2024 1 1 Encounter Details Date Type Department Care Team (Latest Contact Info) Description 05/12/2023 12:09 PM CDT - 05/12/2023 11:59 PM CDT Hospital Encounter [facility] Imaging and Radiology [address] [place] [phone] 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 Gender Identity Not on file Sexual [...] (Latest Contact Info) Description 10/23/2024 10:00 AM DEAF/HARD OF HEARING SPECIALIST Hospital Encounter [facility] Operating Room [id number] [place] [address] [place] [address] [address] 10/23/2024 10:00 AM DEAF/HARD OF HEARING SPECIALIST - 10/23/2024 1:00 PM DEAF/HARD OF HEARING SPECIALIST Surgery [facility] Operating Room [address] [place] [address] [place] [address] [address] ARTHROPLASTY TOTAL KNEE LEFT Scheduled Procedures Name Priority Associated Diagnoses Date/Ti me ARTHROPLASTY TOTAL KNEE left knee osteoarthritis 10/23/2024 10:00 AM DEAF/HARD OF HEARING SPECIALIST ESOPHAGOGASTRODUODENOSCOPY Dysphagia, unspecified type documented as [...] extremity documented in this encounter Care Teams Manager Transition Relationship Specialty Start Date End Date Wolfgang Serrano MD PCP - General Family Medicine 05/05/23 08/02/24 Unknown, Notinfile 03/12/22 [place] [address] [address] 03/12/22 documented as of this encounter
--- OUTSIDE RECORDS SUMMARY | 2024-10-11 03:03 | XMS_ITS | Encounter Summary ---
Author Organization [facility] Address [address] [facility] [address] [place] [address] Care Team Providers Care Rolling Mill Operator Name Role Phone Santino Funk MD Primary Care Provider + Unknown, Notinfile Unavailable Unavailable Santino Funk MD Unavailable [phone] Encounter Details Date Type Department Care Team (Late st Contact Info) Description 12/22/2022 Orders Only [facility] Orthopedics & Sports Medicine at [facility] [address] [phone] [place] [address] [address] Social History Tobacco Use Types [...] relatives? Three times a week 11/25/2021 Attends Jew Services Not on file 11/25 Active Member [...] on file Legal Sex Male 3:25 PM PHARMACY ORDER ENTRY TECHNICIAN Gender Identity Not on file Sexual [...] (Latest Contact Info) Description 10/23/2024 10:00 AM PHARMACY ORDER ENTRY TECHNICIAN Hospital Encounter [facility] Operating Room [id number] [place] [address] [place] [address] [address] 10/23/2024 10:00 AM PHARMACY ORDER ENTRY TECHNICIAN - 10/23/2024 1:00 PM PHARMACY ORDER ENTRY TECHNICIAN Surgery [facility] Operating Room [address] [place] [address] [place] [address] [id number] ARTHROPLASTY TOTAL KNEE LEFT Scheduled Procedures Name Priority Associated Diagnoses Date/Ti me ARTHROPLASTY TOTAL KNEE left knee osteoarthritis 10/23/2024 10:00 AM PHARMACY ORDER ENTRY TECHNICIAN ESOPHAGOGASTRODUODENOSCOPY Dysphagia, unspecified type documented as of this encounter Visit Diagnoses Not on filedocumented in this encounter Discontinued Medications Medication Sig Discontinue Reason Start Date End Da te diclofenac DR (VOLTAREN) 50 mg EC tablet Take 1 tablet by mouth twice daily as needed for pain Reorder 11/11/2022 12/22/2022 documented as of this encounter Care Teams Rolling Mill Operator Relationship Specialty [place] [address] [address] PCP - General Internal Medicine 09/30/22 05/04/23 Unknown, Notinfile 03/12/22 [place] [address] [facility] [place] [address] 03/12/22 documented as of this encounter
--- OUTSIDE RECORDS SUMMARY | 2024-10-11 03:03 | XMS_ITS | Encounter Summary ---
Author Organization [facility] Address [address] [place] [address] Care Team Providers Care Cardiopulmonary Supervisor Name Role Phone Mark Ramos MD Primary Care Provider [phone] Unknown, Notinfile Unavailable Unavailable Santino Funk MD Unavailable [phone] Reason for Visit * Auth/Cert (Routine) Specialty Diagnoses / Procedures Referred By Contac t Referred To Contact Diagnoses Coffee ground emesis GI Bleed Procedures n/a Referral ID Status Reason Start Date Expiration Date Visits Re quested Visits Authorized [id number] 1 1 Encounter Details Date Type Department Care Team (Latest Contact Info) Description 10/11/2023 10:40 AM MEDICAID ANALYST - 10/11/2023 11:10 AM MEDICAID ANALYST Surgery [facility] [address] [place] [id number] Jose Martin Gonzalez MD [address] [place] [id number] ESOPHAGOGASTRODUODENOSCOPY BIOPSY Surgery Details Date/Time Status Location OR Service Patient Class Case Class Case Type Trauma Case? 10/11/2023 10:40 AM Posted [facility] ENDOSCOPY GI 09 Gastroenterology Inpatient [...] relatives? Three times a week 11/25/2021 Attends [employer] Not on file 11/25 Active Member [...] on file Legal Sex Male 3:25 PM MEDICAID ANALYST Gender Identity Not on file Sexual Orientation Not on file documented as of this encounter Last Filed Vital Signs Vital Sign Reading Time Taken Comments Blood Pressure 130/76 10/11/2023 5:58 AM MEDICAID ANALYST Pulse 75 10/11/2023 5:58 AM MEDICAID ANALYST Temperature 36.6 ??C (97.9 ??F) 10/11/2023 5:58 AM CS T Respiratory Rate 16 10/11/2023 5:58 AM MEDICAID ANALYST Oxygen Saturation 98% 10/11/2023 5:58 AM MEDICAID ANALYST Inhaled Oxygen Concentration - - Weight 100.9 kg (222 lb 8 oz) 10/10/2023 9:08 PM MEDICAID ANALYST Height 180.3 cm (5' 11 ) 10/10/2023 9:08 PM MEDICAID ANALYST Body Mass Index 31.03 10/10/2023 9:08 PM MEDICAID ANALYST documented in this encounter Discharge Summaries * Mita Brown MD - 10/13/2023 11:52 AM CST Inpatient Discharge Summary Patient Name - Gunjan Gtz Jr. Patient Age - 78 yrs Patient - [id number] [facility] - [id number] Document Creation Date: 10/13/2023 Admitting Provider, : Jose Martin Gonzalez MD Discharge Provider, : Mita Brown MD Primary Care Physician at Discharge: Mark Ramos MD [phone] Admission Date: 10/10/2023 Discharge Date/time: 10/13/2023 Admission Location: [facility] LOS - LOS: 3 days [...] episodes of black emesis. He presented to [facility]. Hecontinued to have episodes of emesis [...] told he would not make it. At [place], Vitals were stable. Initial labs showed Hgb [...] on CT scan case was discussed with classifying machine operator Dr. Enriquez and patient-advised follow-up with repeat [...] Your Medications These medications were sent to [address] 1101 [facility] 1101 [facility], [facility] [address] omeprazole 20 mg capsule Time Spent in [...] Center 11/12/2023 9:00 AM Marlene Thornton MD [facility] CAM 8B BA Contact Information for Follow-ups Mark Ramos MD Specialty: Family Medicine Relationship: PCP - General [facility] TRAVIS GIBSON [address] [address] Next Steps: Follow up Comments: Follow up with established provider: 1 week Questions: To provider: MARK RAMOS Kiran Varma, MD Specialty: Pulmonary Disease, Internal Medicine, Critical Care Med Relationship: Consulting Physician [address] [place] [address] [facility] [address] Next Steps: Follow up Comments: Follow up with established provider: in 3 months , repeat CT chest Questions: To provider: MORGAN ENRIQUEZ Barry K., MD Specialty: Gastroenterology, Internal Medicine Relationship: Consulting Physician [address] [place] [address] [facility] [address] Next Steps: Follow up Comments: Follow up with established provider: Other (specify) 8-10 weeks Questions: To provider: CARROLL CEDILLO Please schedule an appointment with the following provider(s): Mark Ramos MD [address] [place] [address] Morgan Enriquez MD [address] [place] [address] [facility] [address] Carroll Cedillo MD [address] [place] [address] [facility] [address] ANCILLARY INFORMATION Other Procedures & Diagnostic Tests: [...] only and have not been reviewed by [facility] Radiology. There will be no report generated by a [facility] Radiologist. Recent Labs: Recent Labs Lab Units [...] mg/dL 20 28* CREATININE mg/dL 1.25 1.25 [id number] mL/min/1.73 m2 59 59 GLUCOSE mg/dL 116 [...] Specified [employer] 201.050 Nif - [id number] - Implanted (Bilateral) Knee Inventory item: [employer] Graft Bone Filler Resrb Inj Accufill 5cc Granules 201.050 Model/Cat number: 201.050 Air Defense Specialist: [employer] Knee [employer] Lot number: [id number] Size: 5ml As of 09/22/2018 Status: Implanted Subchondroplasty Knee Kit - Implanted (Bilateral) Knee Model/Cat number: 402.203(201.050) Serial number: [id number] Air Defense Specialist: [employer] Knee [employer] Lot number: [id number] As of 09/22/2018 Status: Implanted System Accumix Bone Cement - [id number] - Implanted Inventory item: [employer] Accumix Self Contain System Cement Mixing Sterile Disposable 311.100 Model/Cat number: 311.100 Air Defense Specialist: [employer] Knee [employer] Lot number: [id number] As of 09/22/2018 Status: Implanted [employer] [id number] Palacos R+G High Viscosity Cement Bone Gentamicin Arthroplasty - [id number] - Implanted (Right) Knee Inventory item: [employer] Palacos R+G High Viscosity Cement Bone Gentamicin Arthroplasty [id number] Model/Cat number: [id number] Air Defense Specialist: [employer] Lot number: [id number] As of 11/24/2021 Status: Implanted [employer] [id number] Persona Cruciate Retain Knee Right 11 Narrow Component Femoral - [id number] - Implanted (Right) Knee Inventory item: [employer] Component Femoral Knee Porous Cruciate Retaining Narrow Right Persona Trabecular Metal Size 11 Jessup Chromium [id number] Model/Cat number: [id number] Air Defense Specialist: [employer] Lot number: [id number] As of 11/24/2021 Status: Implanted [employer] [id number] Persona 35mm Knee Component Patellar All Poly Latex Free - [id number] - Implanted (Right) Knee Inventory item: [employer] Persona 35mm Knee Component Patellar All Poly Latex Free [id number] Model/Cat number: [id number] Air Defense Specialist: [employer] Lot number: [id number] As of 11/24/2021 Status: Implanted [employer] [id number] Persona 14mm 30+ Mm Knee Tibia Taper Extension Stem - [id number] - Implanted (Right) Knee Inventory item: [employer] Persona 14mm 30+ Mm Knee Tibia Taper Extension Stem [id number] Model/Cat number: [id number] Air Defense Specialist: [employer] Lot number: [id number] As of 11/24/2021 Status: Implanted [employer] [id number] Persona Natural Tibia Stem Knee Right 5d G Baseplate Tibial - [id number] - Implanted (Right) Knee Inventory item: [employer] Persona Natural Tibia Stem Knee Right 5d G Baseplate Tibial [id number] Model/Cat number: [id number] Air Defense Specialist: [employer] Lot number: [id number] As of 11/24/2021 Status: Implanted [employer] [id number] Persona 10mm Knee Insert Articular Vivacit-E Sterile - [id number] - Implanted (Right) Knee Inventory item: [employer] Persona 10mm Knee Insert Articular Vivacit-e Sterile [id number] Model/Cat number: [id number] Air Defense Specialist: [employer] Lot number: [id number] As of 11/24/2021 Status: Implanted General Precautions (If Blank, None Found): Isolation Status: No active isolations Nutritional Status and in-house recommendations: Dietary Orders (From admission, onward) Start Ordered 10/11/23 1407 Adult Diet GI Diets; GI Soft Diet effective now Question Answer Comment ([facility]) Diet type GI Diets GI: [...] (12+ YRS) 11/14/2020, 12/12/2020 Mita Brown MD CAID ANALYST CAID ANALYST documented in this encounter Medications at Time [...] No fluid or electrolyte disorders Discussed with correctional casework specialist and licensed clinical social worker regarding the discharge planning. Medical complexity / risk: Current Code Status: Full Code There may be grammatical errors in this note due to use of voice recognition software. Portions of the record may have been created with voice recognition software. Occasional wrong-word or 'bclfo-v-yaei' substitutions may have occurred due to the inherent limitations of voice recognition software. Read the chart carefully and recognize, using context, where substitutions have occurred. Please contact me directly with questions. Mita Brown MD CAID ANALYST * Taylor Bland, LIVESTOCK SHOWMAN - 10/12/2023 9:47 AM CST Gastroenterology Progress [...] esophageal ulcer healing check. Patient lives in [place], [place] and can see a GI provider [...] Errol Viveros MD at 10/12/2023 1:38 PM MEDICAID ANALYST CAID ANALYST CAID ANALYST * Tyrel Fatima MD - 10/11/2023 10:27 AM CST General Medicine Daily Progress Background: Patient admitted on 10/10/2023 with chief complaint of anemia - upper gi bleed suspected and transferred from [facility] for gi intervention Today: No reports of vomiting since [place] yesterday. Pt lives at home with . We discussed chest pain - no cardiac hx. Has appointment with pulm - gets dyspnea on exerition but comfortable now Historian: Alejandro Taylor at bedside as we are discussing stability [...] motor sensory deficits Tyrel Fatima MD, FL[facility], [facility] CAID ANALYST documented in this encounter H&P Notes [...] episodes of black emesis. He presented to [facility]. Hecontinued to have episodes of emesis [...] told he would not make it. At [place], Vitals were stable. Initial labs showed Hgb [...] (Added by TW Conv) Alzheimer's dementia ([facility]) Asthma Back pain Cataract Closed fracture of left tibial plateau with delayed healing Closed fracture of right tibial plateau with delayed healing Closed nondisplaced osteochondral fracture of left patella with delayed healing Closed osteochondral fracture of patella, right, with delayed healing, subsequent encounter Clotting disorder ([facility]) ([facility]) Complex tear of medial meniscus of left knee as current injury Complex tear of medial meniscus of right knee as current injury Cramps of lower extremity Diverticulitis of colon Easy bruisability Fatigue Frequent urination Gastroesophageal reflux disease GERD Hypothyroidism Incontinence of urine Muscle weakness Osteoarthritis Osteoarthritis Peptic ulcer Peptic ulcer disease Seizures ([facility]) 1997 last seizure in 1997 [...] High Manuel Carreno MD 10/10/2023 11:05 PM CAID ANALYST documented in this encounter Procedure Notes * Jose Martin Gonzalez MD - 10/11/2023 9:59 AM CSTAssociated Order(s): EGD ENDOSCOPY LAB Patient Name: Gunjan Gtz Procedure Date: 10/11/2023 9:59 AM Admit Type: Inpatient Room: [facility] [place] [facility] 3 Date of : 1945 Instrument Name: [id number] Gender: Male 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 This patient was transferred to [facility] from [facility] on 10/10 after [...] or night sweats Hospitalization for wheezing, at [facility], noted GI issues as detailed above Minimal tobacco use in 1960's None in the last 50 years No significant asbestos exposure No active malignancy Past Medical History: Diagnosis Date Acute gastric ulcer without hemorrhage or perforation Ulcer, gastric, acute - (Added by TW Conv) Alzheimer's dementia ([facility]) Asthma Back pain Cataract Closed fracture of left tibial plateau with delayed healing Closed fracture of right tibial plateau with delayed healing Closed nondisplaced osteochondral fracture of left patella with delayed healing Closed osteochondral fracture of patella, right, with delayed healing, subsequent encounter Clotting disorder (CMS/HCC) ([facility]) Complex tear of medial meniscus [...] of condyle of left femur (CMS/HCC) ([facility]) Vertigo Vision changes Visual disturbance [...] reviewed the pertinent imaging from this hospitalization. CAID ANALYST * Taylor Bland NP - 10/11/2023 9:10 [...] reason above. This patient was transferred to [facility] from [facility] on 10/10 after [...] (Added by TW Conv) Alzheimer's dementia ([facility]) Asthma Back pain Cataract Closed fracture of left tibial plateau with delayed healing Closed fracture of right tibial plateau with delayed healing Closed nondisplaced osteochondral fracture of left patella with delayed healing Closed osteochondral fracture of patella, right, with delayed healing, subsequent encounter Clotting disorder ([facility]) ([facility]) Complex tear of medial meniscus of left knee as current injury Complex tear of medial meniscus of right knee as current injury Cramps of lower extremity Diverticulitis of colon Easy bruisability Fatigue Frequent urination Gastroesophageal reflux disease GERD Hypothyroidism Incontinence of urine Muscle weakness Osteoarthritis Osteoarthritis Peptic ulcer Peptic ulcer disease Seizures ([facility]) 1997 last seizure in 1997 SOB (shortness of breath) on exertion Subchondral insufficiency fracture of condyle of left femur ([facility]) ([facility]) Vertigo Vision changes Visual disturbance [...] only and have not been reviewed by [facility] Radiology. There will be no report generated by a [facility] Radiologist. Cosigned by Jose Martin Gonzalez MD at 11/01/2023 4:56 PM MEDICAID ANALYST CAID ANALYST CAID ANALYST documented in this encounter Miscellaneous Notes * Plan of Care - Tessy Woodruff RN - 10/13/2023 4:20 AM MEDICAID ANALYST Goals: Problem: Health Behavior: Goal: Understanding of [...] precautions. Call light within reach, care ongoing. CAID ANALYST * Plan of Care - Marva Vera RN - 10/12/2023 7:52 PM CST Goals: Clinical Goals for the Shift: VSS, up with assist, pain controlled, ? d/c today Summary: VSS, up to ambulate in the luis today, pain controlled, ? D/c tommorow CAID ANALYST * Plan of Care - Lulu Jackson [...] Goal: Pain level will decrease Outcome: Ongoing CAID ANALYST * Plan of Care - Gladis Vera [...] Pt slept with call light in reach. CAID ANALYST documented in this encounter Plan of Treatment Upcoming Encounters Date Type Department Care Team (Latest Contact Info) Description 10/23/2024 10:00 AM MEDICAID ANALYST Hospital Encounter [facility] Operating Room [address] [place] [id number] [place] [address] [address] 10/23/2024 10:00 AM MEDICAID ANALYST - 10/23/2024 1:00 PM MEDICAID ANALYST Surgery [facility] Operating Room [address] [place] [id number] [place] [address] [address] ARTHROPLASTY TOTAL KNEE LEFT Scheduled Procedures Name Priority Associated Diagnoses Date/Ti me ARTHROPLASTY TOTAL KNEE left knee osteoarthritis 10/23/2024 10:00 AM MEDICAID ANALYST ESOPHAGOGASTRODUODENOSCOPY Dysphagia, unspecified type documented as of this encounter Procedures Procedure Name Priority Date/Time Associated Diagnosis Comments DIFFERENTIAL AUTO Routine 10/13/2023 6:04 AM MEDICAID ANALYST CBC WITH AUTO DIFFERENTIAL Routine 10/13 6:04 AM MEDICAID ANALYST EGFR Routine 10/12/2023 4:45 AM MEDICAID ANALYST DIFFERENTIAL AUTO Routine 10/12/2023 4:45 AM MEDICAID ANALYST CBC WITH AUTO DIFFERENTIAL Routine 10/12 4:45 AM MEDICAID ANALYST BASIC METABOLIC PANEL Routine 10/12/2023 4:45 AM MEDICAID ANALYST THYROID FUNCTION CASCADE Timed 024 3:21 PM MEDICAID ANALYST HEMOGLOBIN AND HEMATOCRIT Timed 2023 3:21 PM MEDICAID ANALYST T4, FREE Timed 10/11/2023 3:21 PM MEDICAID ANALYST FOLATE Timed 10/11/2023 3:21 PM MEDICAID ANALYST VITAMIN B12 Timed 10/11/2023 3:21 PM MEDICAID ANALYST SURGICAL PATHOLOGY Routine 10/11/2023 11:15 AM MEDICAID ANALYST Gastrointestina l hemorrhage with hematemesis ESOPHAGOGASTRODUODENOSCOPY BIOPSY 10/11/2023 10:27 AM MEDICAID ANALYST hematemesis CT CHEST ABDOMEN PELVIS W CONTRAST ED Urgent/IP Urgent 10/11/2023 10:12 AM MEDICAID ANALYST EGD 10/11/2023 9:59 AM MEDICAID ANALYST TROPONIN T HIGH-SENSITIVITY Routine 10/2023 9:20 AM MEDICAID ANALYST CRP, HIGH SENSITIVITY Routine 10/11/2023 9:20 AM MEDICAID ANALYST DIFFERENTIAL AUTO Routine 10/11/2023 5:56 AM MEDICAID ANALYST CBC WITH AUTO DIFFERENTIAL Routine 10/11 5:56 AM MEDICAID ANALYST EGFR STAT 10/10/2023 11:32 PM MEDICAID ANALYST DIFFERENTIAL AUTO STAT 10/10/2023 11:32 PM MEDICAID ANALYST CBC WITH AUTO DIFFERENTIAL STAT 10/10 11:32 PM MEDICAID ANALYST TYPE AND SCREEN Timed 10/10/2023 11:32 PM MEDICAID ANALYST BASIC METABOLIC PANEL STAT 10/10/2023 11:32 PM MEDICAID ANALYST documented in this encounter Results * Differential, auto (10/13/2023 6:04 AM MEDICAID ANALYST) Neutrophil abs 3.8 1.5 - 6.5 K/cumm [facility] Imm gran abs 0.1 0.0 - 0.1 K/cumm [facility] Lymphocyte abs 2.9 0.8 - 3.3 K/cumm [facility] Monocyte abs 0.8 0.2 - 0.8 K/cumm [facility] Eosinophil abs 0.3 0.0 - 0.5 K/cumm [facility] Basophil abs 0.1 0.0 - 0.1 K/cumm [facility] Neutrophil pct 47.7 % [facility] Comment: Interpretive Data Percent cell count reference ranges are not reported, since discordance with absolute values may lead to misinterpretation of CBC data. Current Interpretive Data was last revised on 2018. Imm gran pct 0.8 % [facility] Comment: Interpretive Data Percent cell count reference ranges are not reported, since discordance with absolute values may lead to misinterpretation of CBC data. Current Interpretive Data was last revised on 2018. Lymphocyte pct 37.0 % [facility] Comment: Interpretive Data Percent cell count reference ranges are not reported, since discordance with absolute values may lead to misinterpretation of CBC data. Current Interpretive Data was last revised on 2018. Monocyte pct 10.1 % [facility] Comment: Interpretive Data Percent cell count reference ranges are not reported, since discordance with absolute values may lead to misinterpretation of CBC data. Current Interpretive Data was last revised on 2018. Eosinophil pct 3.5 % [facility] Comment: Interpretive Data Percent cell count reference ranges are not reported, since discordance with absolute values may lead to misinterpretation of CBC data. Current Interpretive Data was last revised on 2018. Basophil pct 0.9 % [facility] Comment: Interpretive Data Percent cell count reference ranges are not reported, since discordance with absolute values may lead to misinterpretation of CBC data. Current Interpretive Data was last revised on 2018. Blood 10/13/2023 6:04 AM MEDICAID ANALYST 10/13/2023 6:19 AM MEDICAID ANALYST Mita Brown MD LAB BLOOD ORDERABLES Final Result Performing Organization Address [facility] Co de Phone Number [facility] [address] [place] [address] * (ABNORMAL) CBC with auto differential (10/13/2023 6:04 AM MEDICAID ANALYST) [facility] WBC 7.9 3.8 - 9.9 K/cumm [facility] Hgb 11.7(L) 13.0 - 17.5 g/dL [facility] Hct 35.2(L) 38.9 - 50.3 % [facility] Plt 242 150 - 400 K/cumm [facility] MPV 10.5 9.1 - 12.3 fL [facility] RBC 3.41(L) 4.30 - 5.80 M/cumm [facility] MCV 103.2(H) 81.3 - 96.4 fL [facility] MCH 34.3(H) 27.1 - 33.3 pg [facility] MCHC 33.2 32.3 - 35.7 g/dL [facility] RDW CV 14.2 11.1 - 14.9 % [facility] RDW SD 53.7(H) 35.7 - 48.1 fL [facility] NRBC abs 0.00 0.00 - 0.01 K/cumm [facility] Blood 10/13/2023 6:04 AM MEDICAID ANALYST 10/13/2023 6:19 AM MEDICAID ANALYST Mita Brown MD LAB BLOOD ORDERABLES Final Result [facility] [address] [facility] [employer] [place], [place] [id number] * eGFR (10/12/2023 4:45 AM MEDICAID ANALYST) Pathologist [facility] eGFR 59 mL/min/1. 73 m2 [facility] Comment: Interpretive Data Reference Interval Normal [...] last reviewed 2021. Blood 10/12/2023 4:45 AM MEDICAID ANALYST 10/12/2023 4:54 AM MEDICAID ANALYST us Tyrel Fatima MD LAB BLOOD ORDERABLES Fi nal Result [facility] [address] [place] [address] * (ABNORMAL) Differential, auto (10/12/2023 4:45 AM MEDICAID ANALYST) Neutrophil abs 5.9 1.5 - 6.5 K/cumm [facility] Imm gran abs 0.0 0.0 - 0.1 K/cumm [facility] Lymphocyte abs 2.6 0.8 - 3.3 K/cumm [facility] Monocyte abs 1.0(H) 0.2 - 0.8 K/cumm [facility] Eosinophil abs 0.2 0.0 - 0.5 K/cumm [facility] Basophil abs 0.1 0.0 - 0.1 K/cumm [facility] Neutrophil pct 60.4 % [facility] Comment: Interpretive Data Percent cell count reference ranges are not reported, since discordance with absolute values may lead to misinterpretation of CBC data. Current Interpretive Data was last revised on 2018. Imm gran pct 0.3 % [facility] Comment: Interpretive Data Percent cell count reference ranges are not reported, since discordance with absolute values may lead to misinterpretation of CBC data. Current Interpretive Data was last revised on 2018. Lymphocyte pct 26.8 % [facility] Comment: Interpretive Data Percent cell count reference ranges are not reported, since discordance with absolute values may lead to misinterpretation of CBC data. Current Interpretive Data was last revised on 2018. Monocyte pct 10.0 % [facility] Comment: Interpretive Data Percent cell count reference ranges are not reported, since discordance with absolute values may lead to misinterpretation of CBC data. Current Interpretive Data was last revised on 2018. Eosinophil pct 2.0 % [facility] Comment: Interpretive Data Percent cell count reference ranges are not reported, since discordance with absolute values may lead to misinterpretation of CBC data. Current Interpretive Data was last revised on 2018. Basophil pct 0.5 % [facility] Comment: Interpretive Data Percent cell count reference ranges are not reported, since discordance with absolute values may lead to misinterpretation of CBC data. Current Interpretive Data was last revised on 2018. Blood 10/12/2023 4:45 AM MEDICAID ANALYST 10/12/2023 4:54 AM MEDICAID ANALYST us Tyrel Fatima MD LAB BLOOD ORDERABLES Fi nal Result [facility] [address] Department [place] [address] * Basic metabolic panel (10/12/2023 4:45 AM MEDICAID ANALYST) Sodium 139 135 - 145 mmol/L [facility] Potassium, pl 4.4 3.3 - 4.9 mmol/L [facility] Chloride 107 97 - 110 mmol/L [facility] CO2 24 22 - 32 mmol/L [facility] Anion gap 8 2 - 15 mmol/L [facility] BUN 20 6 - 25 mg/dL [facility] Creatinine 1.25 0.80 - 1.30 mg/dL [facility] Glucose 116 70 - 199 mg/dL [facility] Comment: Interpretive Data Fasting glucose >/= [...] 2022. Calcium 8.6 8.5 - 10.3 mg/dL [facility] Blood 10/12/2023 4:45 AM MEDICAID ANALYST 10/12/2023 4:54 AM MEDICAID ANALYST us Tyrel Fatima MD LAB BLOOD ORDERABLES Fi nal Result [facility] [address] [place] [address] * (ABNORMAL) CBC with auto differential (10/12/2023 4:45 AM MEDICAID ANALYST) WBC 9.8 3.8 - 9.9 K/cumm [facility] Hgb 11.3(L) 13.0 - 17.5 g/dL [facility] Hct 34.7(L) 38.9 - 50.3 % [facility] Plt 233 150 - 400 K/cumm [facility] MPV 10.9 9.1 - 12.3 fL [facility] RBC 3.35(L) 4.30 - 5.80 M/cumm [facility] MCV 103.6(H) 81.3 - 96.4 fL [facility] MCH 33.7(H) 27.1 - 33.3 pg [facility] MCHC 32.6 32.3 - 35.7 g/dL [facility] RDW CV 14.0 11.1 - 14.9 % [facility] RDW SD 53.1(H) 35.7 - 48.1 fL [facility] NRBC abs 0.00 0.00 - 0.01 K/cumm [facility] Blood 10/12/2023 4:45 AM MEDICAID ANALYST 10/12/2023 4:54 AM MEDICAID ANALYST Tyrel Fatima MD LAB BLOOD ORDERABLES Fi nal Result Performing Organization Address [facility] Co de Phone Number [facility] [address] Department [employer] [place], [place] [id number] * T4, free (10/11/2023 3:21 PM MEDICAID ANALYST) Free T4 1.39 0.90 - 1.70 ng/dL [facility] Blood 10/11/2023 3:21 PM MEDICAID ANALYST 10/11/2023 3:43 PM MEDICAID ANALYST Narrative [facility] - 10/11/2023 4:57 PM MEDICAID ANALYST This test was reflexed from a TSH result. Tyrel Fatima MD LAB BLOOD ORDERABLES Fi nal Result Performing Organization Address [facility] de Phone Number [facility] [address] [place] [address] * (ABNORMAL) TSH reflex to free T4 (10/11/2023 3:21 PM MEDICAID ANALYST) TSH 7.57(H) 0.30 - 4.20 mcIUnit/mL [facility] Blood 10/11/2023 3:21 PM MEDICAID ANALYST 10/11/2023 3:43 PM MEDICAID ANALYST Tyrel Fatima MD LAB BLOOD ORDERABLES Ed ited Result - Final Performing Organization Address [facility] Co de Phone Number [facility] [address] [facility] [place] [address] * (ABNORMAL) Vitamin B12 (10/11/2023 3:21 PM MEDICAID ANALYST) Pathologist [facility] [place] Vitamin B12 1,995(H) 230 - 1,250 pg/mL [facility] Blood 10/11/2023 3:21 PM MEDICAID ANALYST 10/11/2023 3:43 PM MEDICAID ANALYST Tyrel Fatima MD LAB BLOOD ORDERABLES Ed ited Result - Final Performing Organization Address [facility] Co de Phone Number [facility] [address] [facility] [place] [address] * Folate (10/11/2023 3:21 PM MEDICAID ANALYST) Pathologist [facility] [place] Folic acid 17.4 >=5.0 ng/mL [facility] Blood 10/11/2023 3:21 PM MEDICAID ANALYST 10/11/2023 3:43 PM MEDICAID ANALYST Tyrel Fatima MD LAB BLOOD ORDERABLES Fi nal Result Performing Organization Address [facility] Co de Phone Number [facility] [address] [place] [address] * Hemoglobin and hematocrit (10/11/2023 3:21 PM MEDICAID ANALYST) [facility] Hgb 13.3 13.0 - 17.5 g/dL [facility] Hct 41.4 38.9 - 50.3 % [facility] Blood 10/11/2023 3:21 PM MEDICAID ANALYST 10/11/2023 3:43 PM MEDICAID ANALYST Tyrel Fatima MD LAB BLOOD ORDERABLES Fi nal Result Performing Organization Address [facility]/ZIP Co de Phone Number [facility] [address] [place] [address] * Surgical pathology (10/11/2023 11:15 AM MEDICAID ANALYST) Tissue (Esophageal biopsy) 10/11/2023 11:10 AM MEDICAID ANALYST Narrative PATHOLOGY [facility] - 10/13/2023 10:04 AM MEDICAID ANALYST [address] ??[address] Tele: ?? Any Arriaza MD - International Project Engineer Note to Patients: This report may contain [...] REPORT Patient Name: ??GUNJAN GTZ JRMason Address: ??[address] [place] [id number] Gender: ??M : ??1945 (Age: 78) Service: ??Medical Location: ??[place] [address], ?? Hospital #: ??[id number] Patient Type: ??[facility] IN[facility] Accession #: ? [id number] Taken: ? [...] inclusions are identified. Clerical Data Follows A; 10520 REPORT IMAGES AND/OR SCANNED DOCUMENTS ONLY VIEWABLE IN PDF FORMAT The immunohistochemical test(s) cited in this report, if any, was developed and its performance characteristics determined by [facility] Pathology Department. ??It has not been cleared or approved by the U.S. Food and Drug Administration. ??The FDA has determined that such clearance or approval is not necessary. ??This test is used for clinical purposes. ??It should not be regarded as investigational or for research. ??[facility] Laboratory is certified under the Clinical [...] MD LAB PATHOLOGY ORDERABLES Final Result PATHOLOGY [facility] Laboratory Receiving [address] [place] [address] * CT Chest Abdomen Pelvis W Contrast (10/11/2023 10:12 AM MEDICAID ANALYST) Anatomical Region Laterality Modality Body N/A Computed Tomogra phy 10/11/2023 11:0 3 AM MEDICAID ANALYST Impressions 10/11/2023 11:03 AM MEDICAID ANALYST A 12 x 12 mm pulmonary nodule in the lateral aspect of the right costophrenic sulcus, new since 2019, is suspicious for primary lung malignancy. 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 Blood 10/11/2023 9:20 AM MEDICAID ANALYST 10/11/2023 9:24 AM MEDICAID ANALYST us Taylor Bland NP LAB BLOOD ORDERABLES Final Res ult Performing Organization Address [facility] Co de Phone Number [facility] [address] [facility] [place], [place] [id number] * Troponin T high-sensitivity (10/11/2023 9:20 AM MEDICAID ANALYST) Trop T hs 18 <=22 ng/L [facility] Comment: Interpretive Data For further hscTnT resources including the diagnostic algorithm and an aid in interpretation, copy and paste this link: [email or web address] Current Interpretive Data last revised 2020. Blood 10/11/2023 9:20 AM MEDICAID ANALYST 10/11/2023 9:24 AM MEDICAID ANALYST Taylor Bland NP LAB BLOOD ORDERABLES Final Res ult Performing Organization Address [facility] Co de Phone Number [facility] [address] Department [employer] [place], [place] [phone] * Differential, auto (10/11/2023 5:56 AM MEDICAID ANALYST) Neutrophil abs 4.4 1.5 - 6.5 K/cumm [facility] Imm gran abs 0.0 0.0 - 0.1 K/cumm [facility] Lymphocyte abs 2.2 0.8 - 3.3 K/cumm [facility] Monocyte abs 0.8 0.2 - 0.8 K/cumm [facility] Eosinophil abs 0.3 0.0 - 0.5 K/cumm [facility] Basophil abs 0.1 0.0 - 0.1 K/cumm [facility] Neutrophil pct 56.5 % [facility] Comment: Interpretive Data Percent cell count reference ranges are not reported, since discordance with absolute values may lead to misinterpretation of CBC data. Current Interpretive Data was last revised on 2018. Imm gran pct 0.4 % [facility] Comment: Interpretive Data Percent cell count reference ranges are not reported, since discordance with absolute values may lead to misinterpretation of CBC data. Current Interpretive Data was last revised on 2018. Lymphocyte pct 28.4 % [facility] Comment: Interpretive Data Percent cell count reference ranges are not reported, since discordance with absolute values may lead to misinterpretation of CBC data. Current Interpretive Data was last revised on 2018. Monocyte pct 10.5 % [facility] Comment: Interpretive Data Percent cell count reference ranges are not reported, since discordance with absolute values may lead to misinterpretation of CBC data. Current Interpretive Data was last revised on 2018. Eosinophil pct 3.3 % [facility] Comment: Interpretive Data Percent cell count reference ranges are not reported, since discordance with absolute values may lead to misinterpretation of CBC data. Current Interpretive Data was last revised on 2018. Basophil pct 0.9 % [facility] Comment: Interpretive Data Percent cell count reference ranges are not reported, since discordance with absolute values may lead to misinterpretation of CBC data. Current Interpretive Data was last revised on 2018. Blood 10/11/2023 5:56 AM MEDICAID ANALYST 10/11/2023 6:38 AM MEDICAID ANALYST us Melvin Garcia MD LAB BLOOD ORDERABLES Final Res ult [facility] [address] [place] [address] * (ABNORMAL) CBC with auto differential (10/11/2023 5:56 AM MEDICAID ANALYST) [facility] WBC 7.8 3.8 - 9.9 K/cumm [facility] Hgb 11.9(L) 13.0 - 17.5 g/dL [facility] Hct 35.9(L) 38.9 - 50.3 % [facility] Plt 241 150 - 400 K/cumm [facility] MPV 11.4 9.1 - 12.3 fL [facility] RBC 3.47(L) 4.30 - 5.80 M/cumm [facility] MCV 103.5(H) 81.3 - 96.4 fL [facility] MCH 34.3(H) 27.1 - 33.3 pg [facility] MCHC 33.1 32.3 - 35.7 g/dL [facility] RDW CV 14.4 11.1 - 14.9 % [facility] RDW SD 55.2(H) 35.7 - 48.1 fL [facility] NRBC abs 0.00 0.00 - 0.01 K/cumm [facility] Blood 10/11/2023 5:56 AM MEDICAID ANALYST 10/11/2023 6:38 AM MEDICAID ANALYST us Melvin Garcia MD LAB BLOOD ORDERABLES Final Res ult [facility] [address] Department [place] [address] * eGFR (10/10/2023 11:32 PM MEDICAID ANALYST) [facility] eGFR 59 mL/min/1. 73 m2 [facility] Comment: Interpretive Data Reference Interval Normal [...] reviewed 2021. Blood 10/10/2023 11:3 2 PM MEDICAID ANALYST 10/10/2023 11:41 PM MEDICAID ANALYST us Melvin Garcia MD LAB BLOOD ORDERABLES Final Res ult [facility] [address] Department [place] [address] * (ABNORMAL) Differential, auto (10/10/2023 11:32 PM MEDICAID ANALYST) Neutrophil abs 5.0 1.5 - 6.5 K/cumm [facility] Imm gran abs 0.1 0.0 - 0.1 K/cumm [facility] Lymphocyte abs 2.7 0.8 - 3.3 K/cumm [facility] Monocyte abs 0.9(H) 0.2 - 0.8 K/cumm [facility] Eosinophil abs 0.4 0.0 - 0.5 K/cumm [facility] Basophil abs 0.1 0.0 - 0.1 K/cumm [facility] Neutrophil pct 54.9 % [facility] Comment: Interpretive Data Percent cell count reference ranges are not reported, since discordance with absolute values may lead to misinterpretation of CBC data. Current Interpretive Data was last revised on 2018. Imm gran pct 0.5 % [facility] Comment: Interpretive Data Percent cell count reference ranges are not reported, since discordance with absolute values may lead to misinterpretation of CBC data. Current Interpretive Data was last revised on 2018. Lymphocyte pct 29.3 % [facility] Comment: Interpretive Data Percent cell count reference ranges are not reported, since discordance with absolute values may lead to misinterpretation of CBC data. Current Interpretive Data was last revised on 2018. Monocyte pct 10.2 % [facility] Comment: Interpretive Data Percent cell count reference ranges are not reported, since discordance with absolute values may lead to misinterpretation of CBC data. Current Interpretive Data was last revised on 2018. Eosinophil pct 4.3 % [facility] Comment: Interpretive Data Percent cell count reference ranges are not reported, since discordance with absolute values may lead to misinterpretation of CBC data. Current Interpretive Data was last revised on 2018. Basophil pct 0.8 % [facility] Comment: Interpretive Data Percent cell count reference ranges are not reported, since discordance with absolute values may lead to misinterpretation of CBC data. Current Interpretive Data was last revised on 2018. Blood 10/10/2023 11:3 2 PM MEDICAID ANALYST 10/10/2023 11:41 PM MEDICAID ANALYST us Melvin Garcia MD LAB BLOOD ORDERABLES Final Res ult [facility] [address] [place] [address] * Type and screen (10/10/2023 11:32 PM MEDICAID ANALYST) Sarah, indirect Negative ABO Rh O Negative [facility] Blood 10/10/2023 11:3 2 PM MEDICAID ANALYST 10/10/2023 11:36 PM MEDICAID ANALYST [facility]ative [facility] - 10/11/2023 12:38 AM MEDICAID ANALYST Has the patient had Daratumumab or Isatuximab in the past 6 months?->Unknown us Manuel Carreno MD LAB BLOOD BANK TEST ORDERAB LES Final Result Performing Organization Address [facility]/ZIP Co de Phone Number [facility] [address] [place] [address] * (ABNORMAL) Basic metabolic panel (10/10/2023 11:32 PM MEDICAID ANALYST) Sodium 139 135 - 145 mmol/L [facility] Potassium, pl 4.4 3.3 - 4.9 mmol/L [facility] Comment:Hemolyzed; potassium value may be falsely elevated by as much as 0.3 - 0.5 mmol/L. Suggest redraw and reanalysis Chloride 104 97 - 110 mmol/L [facility] CO2 25 22 - 32 mmol/L [facility] Anion gap 10 2 - 15 mmol/L [facility] BUN 28(H) 6 - 25 mg/dL [facility] Creatinine 1.25 0.80 - 1.30 mg/dL [facility] Glucose 109 70 - 199 mg/dL [facility] Comment: Interpretive Data Fasting glucose >/= [...] 2022. Calcium 9.1 8.5 - 10.3 mg/dL [facility] Blood 10/10/2023 11:3 2 PM MEDICAID ANALYST 10/10/2023 11:41 PM MEDICAID ANALYST us Melvin Garcia MD LAB BLOOD ORDERABLES Final Res ult Performing Organization Address [facility]/ZIP Co de Phone Number [facility] [address] [place] [address] * (ABNORMAL) CBC with auto differential (10/10/2023 11:32 PM MEDICAID ANALYST) WBC 9.1 3.8 - 9.9 K/cumm [facility] Hgb 12.9(L) 13.0 - 17.5 g/dL [facility] Hct 39.6 38.9 - 50.3 % [facility] Plt 250 150 - 400 K/cumm [facility] MPV 11.3 9.1 - 12.3 fL [facility] RBC 3.78(L) 4.30 - 5.80 M/cumm [facility] MCV 104.8(H) 81.3 - 96.4 fL [facility] MCH 34.1(H) 27.1 - 33.3 pg [facility] MCHC 32.6 32.3 - 35.7 g/dL [facility] RDW CV 14.5 11.1 - 14.9 % [facility] RDW SD 55.4(H) 35.7 - 48.1 fL [facility] NRBC abs 0.00 0.00 - 0.01 K/cumm [facility] Blood 10/10/2023 11:3 2 PM MEDICAID ANALYST 10/10/2023 11:41 PM MEDICAID ANALYST us Melvin Garcia MD LAB BLOOD ORDERABLES Final Res ult [facility] [address] [place] [address] documented in this encounter Visit Diagnoses Not [...] Indications: Fever, PainIndications:Fever,Pain Given 10/13/2023 7:51 AM MEDICAID ANALYST 650 mg Given 10/12/2023 2:21 PM MEDICAID ANALYST 650 mg albuterol HFA (PROVENTIL HFA,VENTOLIN HFA,PROAIR HFA) 90 mcg/actuation inhaler 2 puff 2 puff, inhalation, Every 4 hours PRN (respiratory director), wheezing, shortness of breath, Starting on Wed10/11/23 [...] Wed10/11/23 at 2100 Given 10/12/2023 8:50 PM MEDICAID ANALYST 10 mg Given 10/11/2023 9:02 PM MEDICAID ANALYST 10 mg gabapentin (NEURONTIN) capsule 200 mg 200 mg, oral, 3 times daily, First dose on Wed10/11/23 at 0900 Given 10/13/2023 7:51 AM MEDICAID ANALYST 200 mg Given 10/12/2023 8:50 PM MEDICAID ANALYST 200 mg Given 10/12/2023 5:03 PM MEDICAID ANALYST 200 mg levothyroxine (SYNTHROID) tablet 150 mcg 150 mcg, oral, Daily (early AM), First dose on Wed10/11/23 at 0600, Administer on an empty stomach, preferably 30 minutes before breakfast. Take 4 hours apart from antacids, iron and calcium products. Separate from tube feeds, if applicable. Given 10/13/2023 5:44 AM MEDICAID ANALYST 150 mcg Given 10/12/2023 9:59 AM MEDICAID ANALYST 150 mcg Given 10/11/2023 6:28 AM MEDICAID ANALYST 150 mcg mirtazapine (REMERON) tablet 7.5 mg 7.5 mg, oral, Nightly, First dose on Wed10/11/23 at 2100 Given 10/12/2023 8:50 PM MEDICAID ANALYST 7.5 mg Given 10/11/2023 9:02 PM MEDICAID ANALYST 7.5 mg ondansetron (ZOFRAN) injection 4 mg [...] otherwise manipulate tablet/capsule. Given 10/12/2023 8:50 PM MEDICAID ANALYST 15 mg Given 10/11/2023 9:01 PM MEDICAID ANALYST [address] (PROTONIX) extended release tablet 40 mg 40 mg, oral, 2 times daily, First dose on Wed10/12/23 at 1400, Do not crush, chew, cut, dissolve, open or otherwise manipulate tablet/capsule., Indications: GI BleedIndications:GI Bleed Given 10/13/2023 7:51 AM MEDICAID ANALYST 40 mg Given 10/12/2023 8:50 PM MEDICAID ANALYST 40 mg Given 10/12/2023 2:21 PM MEDICAID ANALYST 40 mg senna-docusate (PERICOLACE) 8.6-50 mg per tablet 1 tablet 1 tablet, oral, Nightly, First dose on Wed10/11/23 at 2100 Given 10/12/2023 8:50 PM MEDICAID ANALYST 1 tablet Given 10/11/2023 9:02 PM MEDICAID ANALYST 1 tablet sodium chloride 0.9% flush 0.5-20 mL 0.5-20 mL, intra-catheter, Every 8 hours scheduled, First dose on Wed10/10/23 at 2200, Flush volume based on line type and size. Given 10/12/2023 10:00 AM MEDICAID ANALYST 10 mL Given 10/11/2023 9:04 PM MEDICAID ANALYST 10 mL Given 10/10/2023 11:59 PM MEDICAID ANALYST 10 mL sodium chloride 0.9% flush 0.5-20 mL 0.5-20 mL, intra-catheter, As needed, line care, Starting on Wed10/10/23 at 2125, Flush volume based on line type and size. Flush before and after each use. Given 10/12/2023 10:00 AM MEDICAID ANALYST 10 mL tamsulosin (FLOMAX) extended release capsule 0.4 mg 0.4 mg, oral, Nightly, First dose on Wed10/11/23 at 2100, Do not crush, chew, cut, dissolve, open or otherwise manipulate tablet/capsule. Given 10/12/2023 8:50 PM MEDICAID ANALYST 0.4 mg Given 10/11/2023 9:02 PM MEDICAID ANALYST 0.4 mg tiZANidine (ZANAFLEX) tablet 2 mg 2 mg, oral, Nightly, First dose on Wed10/11/23 at 2100, Administer on an empty stomach Given 10/12/2023 8:50 PM MEDICAID ANALYST 2 mg Given 10/11/2023 9:02 PM MEDICAID ANALYST 2 mg documented in this encounter Discontinued [...] Recently Administered Medications Times are shown in MEDICAID ANALYST. Scheduled Medication Order 10/11/2023 10/12/2023 10/13/2023 [id number] [...] 0628 (Given - Provider: Gladis Vera RN)1027 ([facility] Hold - Provider: Automatic Transfer Provider - Reason: Patient not available)1225 ([facility] Unhold - Provider: Automatic Transfer Provider) 0959 (Given - Provider: Marva Vera, RN) 0544 (Given - Provider: Tessy Woodruff, MARAH) mirtazapine (REMERON) tablet 7.5 mg 7.5 mg, oral, Nightly, First dose on Wed10/11/23 at 2100 1027 ([facility] Hold - Provider: Automatic Transfer Provider - Reason: Patient not available)1225 ([facility] Unhold - Provider: Automatic Transfer Provider)2101 (Given - Provider: Latisha Navarrete, MARAH) 2049 (Given - Provider: Tessy Woodruff, MARAH) oxyBUTYnin XL (DITROPAN-XL) extended release tablet 15 mg 15 mg, oral, Nightly, First dose on Wed10/11/23 at 2100, Do not crush, chew, cut, dissolve, open or otherwise manipulate tablet/capsule. 1027 ([facility] Hold - Provider: Automatic Transfer Provider - Reason: Patient not available)1225 ([facility] Unhold - Provider: Automatic Transfer Provider)2100 [...] 0911 (Given - Provider: Lulu Jackson RN)1027 ([facility] Hold - Provider: Automatic Transfer Provider - Reason: Patient not available)1225 ([facility] Unhold - Provider: Automatic Transfer Provider)2100 [...] Provider: Marva Vera RN)2049 (Given - Provider: Tsesy Woodruff RN) 0751 (Given - Provider: Marva [...] Transfer Provider) 1421 (Given - Provider: Marva Vera, MARAH) 0751 (Given - Provider: Marva Vera, RN) albuterol HFA (PROVENTIL HFA,VENTOLIN HFA,PROAIR HFA) 90 mcg/actuation inhaler 2 puff 2 puff, inhalation, Every 4 hours PRN (respiratory director), wheezing, shortness of breath, Starting on Wed10/11/23 at 0326 1027 ([facility] Hold - Provider: Automatic Transfer Provider - Reason: Patient not available)1225 ([facility] Unhold - Provider: Automatic Transfer Provider) Carrier Fluids for Secondary Infusion - 0.9% Sodium Chloride 30 mL, intravenous, As needed, For priming tubing and/or flushing, Starting on 10/10/23 at 2125, 0-250 ml/hr to flush line after IV infusions when no maintenance IV ordered. Infuse 30mL at the same rate as the secondary infusion. Run as primary IV, not intended for KVO. 1027 ([facility] Hold - Provider: Automatic Transfer Provider - Reason: Patient not available)1225 ([facility] Unhold - Provider: Automatic Transfer Provider) [...] at 2125, Indications: Nausea and Vomiting 1027 ([facility] Hold - Provider: Automatic Transfer Provider - Reason: Patient not available)1225 ([facility] Unhold - Provider: Automatic Transfer Provider) ondansetron ODT (ZOFRAN-ODT) disintegrating tablet 4 mg(Linked Group 1) 4 mg, oral, Every 6 hours PRN, nausea, vomiting, Starting on 10/10/23 at 2125, Indications: Nausea and Vomiting 1027 ([facility] Hold - Provider: Automatic Transfer Provider - Reason: Patient not available)1225 ([facility] Unhold - Provider: Automatic Transfer Provider) sodium chloride 0.9% flush 0.5-20 mL 0.5-20 mL, intra-catheter, As needed, line care, Starting on 10/10/23 at 2125, Flush volume based on line type and size. Flush before and after each use. 1027 ([facility] Hold - Provider: Automatic Transfer Provider - Reason: Patient not available)1225 ([facility] Unhold - Provider: Automatic Transfer Provider) [...] 10/10/2023 documented in this encounter Care Teams Cardiopulmonary Supervisor Relationship Specialty Start Date End Date Mark Ramos MD PCP - General Family Medicine 05/05/23 08/02/24 Unknown, Notinfile 03/12/22 [place] [id number] [facility] [address] [place] [address] 03/12/22 documented as of this encounter
--- OUTSIDE RECORDS SUMMARY | 2024-10-11 03:03 | XMS_ITS | Encounter Summary ---
Author Organization [facility] Healthcare Address [address] [place] [address] Care Team Providers Care Digester Hand Name Role Phone Mark Ramos MD Primary Care Provider [phone] Unknown, Notinfile Unavailable Unavailable Santino Funk MD Unavailable [phone] Morgan Enriquez MD Unavailable [phone] Carroll Cedillo MD Unavailable Reason for Visit * Auth/Cert (Routine) Specialty Diagnoses / Procedures Referred By Contac t Referred To Contact Diagnoses Coffee ground emesis GI Bleed Procedures n/a Referral ID Status Reason Start Date Expiration Date Visits Re quested Visits Authorized [id number] 1 1 Encounter Details Date Type Department Care Team (Latest Contact Info) Description 10/10/2023 9:07 PM THEATER SET PRODUCTION DESIGNER - 10/13/2023 3:23 PM THEATER SET PRODUCTION DESIGNER Hospital Encounter [facility] [address] [place] [id number] Melvin Garcia MD [facility] [facility] [place] [address] Manuel Carreno MD [address] [facility] [place] [address] Tyrel Fatima MD [address] [place], [place] [id number] Mita Brown MD [address] [place] [address] Jose Martin Gonzalez MD [address] [place], [place] [id number] Upper GI bleed (Primary Dx); Coffee ground [...] relatives? Three times a week 11/25/2021 Attends [employer] Not on file 11/25 Active Member [...] on file Legal Sex Male 3:25 PM THEATER SET PRODUCTION DESIGNER Gender Identity Not on file Sexual Orientation Not on file documented as of this encounter Last Filed Vital Signs Vital Sign Reading Time Taken Comments Blood Pressure 109/67 10/13/2023 12:30 PM THEATER SET PRODUCTION DESIGNER Pulse 89 10/13/2023 12:30 PM THEATER SET PRODUCTION DESIGNER Temperature 36.8 ??C (98.2 ??F) 10/13/2023 12:[address] Respiratory Rate 18 10/13/2023 12:30 PM THEATER SET PRODUCTION DESIGNER Oxygen Saturation 99% 10/13/2023 12:30 PM THEATER SET PRODUCTION DESIGNER Inhaled Oxygen Concentration - - Weight 100.9 kg (222 lb 8 oz) 10/10/2023 9:08 PM THEATER SET PRODUCTION DESIGNER Height 180.3 cm (5' 11 ) 10/10/2023 9:08 PM THEATER SET PRODUCTION DESIGNER Body Mass Index 31.03 10/10/2023 9:08 PM THEATER SET PRODUCTION DESIGNER documented in this encounter Discharge Summaries * Mita Brown MD - 10/13/2023 11:52 AM CST Inpatient Discharge Summary Patient Name - Gunjan Gtz Jr. Patient Age - 78 yrs Patient - [id number] [facility] - [id number] Document Creation Date: 10/13/2023 Admitting Provider, : Jose Martin Gonzalez MD Discharge Provider, : Mita Brown MD Primary Care Physician at Discharge: Mark Ramos MD [phone] Admission Date: 10/10/2023 Discharge Date/time: 10/13/2023 Admission Location: [facility] LOS - LOS: 3 days DETAILS [...] episodes of black emesis. He presented to [facility]. Hecontinued to have episodes of emesis in [...] told he would not make it. At [facility], Vitals were stable. Initial labs showed Hgb [...] on CT scan case was discussed with distribution center manager Dr. Enriquez and patient-advised follow-up with repeat [...] Your Medications These medications were sent to [address] [place] [address] [address] [facility] [address] omeprazole 20 mg capsule Time Spent in [...] Center 11/12/2023 9:00 AM Marlene Thornton MD [facility] 8B BA Contact Information for Follow-ups Mark Ramos MD Specialty: Family Medicine Relationship: PCP - General [facility] TRAVIS GIBSON [address] [address] Next Steps: Follow up Comments: Follow up with established provider: 1 week Questions: To provider: MARK RAMOS Kiran Varma, MD Specialty: Pulmonary Disease, Internal Medicine, Critical Care Med Relationship: Consulting Physician [address] [place] [address] [facility] [address] Next Steps: Follow up Comments: Follow up with established provider: in 3 months , repeat CT chest Questions: To provider: MORGAN ENRIQUEZ Barry K., MD Specialty: Gastroenterology, Internal Medicine Relationship: Consulting Physician [address] [place] [address] [facility] [address] Next Steps: Follow up Comments: Follow up with established provider: Other (specify) 8-10 weeks Questions: To provider: CARROLL CEDILLO Please schedule an appointment with the following provider(s): Mark Ramos MD [address] [address] Morgan Enriquez MD [address] [place] [address] [facility] [address] Carroll Cedillo MD [address] [place] [address] [facility] [address] ANCILLARY INFORMATION Other Procedures & Diagnostic Tests: [...] only and have not been reviewed by [facility] Radiology. There will be no report generated by a [facility] Radiologist. Recent Labs: Recent Labs [...] mg/dL 20 28* CREATININE mg/dL 1.25 1.25 [id number] mL/min/1.73 m2 59 59 GLUCOSE mg/dL 116 [...] 103 10/26/2022 Implant: Implants Type Not Specified LikeAndy Knee Typo Keyboardss 201.050 Nif - [id number] - Implanted (Bilateral) Knee Inventory item: Rainbow Graft Bone Filler Resrb Inj Accufill 5cc Granules 201.050 Model/Cat number: 201.050 Heritage Consultant: [employer] Lot number: [id number] Size: 5ml As of 09/22/2018 Status: Implanted Subchondroplasty Knee Kit - Implanted (Bilateral) Knee Model/Cat number: 402.203(201.050) Serial number: [id number] Heritage Consultant: [employer] Lot number: [id number] As of 09/22/2018 Status: Implanted System Accumix Bone Cement - [id number] - Implanted Inventory item: Rainbow Accumix Self Contain System Cement Mixing Sterile Disposable 311.100 Model/Cat number: 311.100 Heritage Consultant: LikeAndy Knee Typo Keyboardss Lot number: [id number] As of 09/22/2018 Status: Implanted [employer] [id number] Palacos R+G High Viscosity Cement Bone Gentamicin Arthroplasty - [id number] - Implanted (Right) Knee Inventory item: [employer] Palacos R+G High Viscosity Cement Bone Gentamicin Arthroplasty [id number] Model/Cat number: [id number] Heritage Consultant: [employer] Lot number: [id number] As of 11/24/2021 Status: Implanted imgix [id number] Persona Cruciate Retain Knee Right 11 Narrow Component Femoral - [id number] - Implanted (Right) Knee Inventory item: [employer] Component Femoral Knee Porous Cruciate Retaining Narrow Right Persona Trabecular Metal Size 11 [place] Chromium [id number] Model/Cat number: [id number] Heritage Consultant: [employer] Inc Lot number: [id number] As of 11/24/2021 Status: Implanted [employer] [id number] Persona 35mm Knee Component Patellar All Poly Latex Free - [id number] - Implanted (Right) Knee Inventory item: [employer] Persona 35mm Knee Component Patellar All Poly Latex Free [id number] Model/Cat number: [id number] Heritage Consultant: [employer] Lot number: [id number] As of 11/24/2021 Status: Implanted [employer] [id number] Persona 14mm 30+ Mm Knee Tibia Taper Extension Stem - [id number] - Implanted (Right) Knee Inventory item: [employer] Persona 14mm 30+ Mm Knee Tibia Taper Extension Stem [id number] Model/Cat number: [id number] Heritage Consultant: [employer] Lot number: [id number] As of 11/24/2021 Status: Implanted [employer] [id number] Persona Natural Tibia Stem Knee Right 5d G Baseplate Tibial - [id number] - Implanted (Right) Knee Inventory item: [employer] Persona Natural Tibia Stem Knee Right 5d G Baseplate Tibial [id number] Model/Cat number: [id number] Heritage Consultant: [employer] Lot number: [id number] As of 11/24/2021 Status: Implanted [employer] [id number] Persona 10mm Knee Insert Articular Vivacit-E Sterile - [id number] - Implanted (Right) Knee Inventory item: [employer] Persona 10mm Knee Insert Articular Vivacit-e Sterile [id number] Model/Cat number: [id number] Heritage Consultant: [employer] Lot number: [id number] As of 11/24/2021 Status: Implanted General Precautions (If Blank, None Found): Isolation Status: No active isolations Nutritional Status and in-house recommendations: Dietary Orders (From admission, onward) Start Ordered 10/11/23 1407 Adult Diet GI Diets; GI Soft Diet effective now Question Answer Comment ([facility]) Diet type GI Diets GI: GI Soft [...] (12+ YRS) 11/14/2020, 12/12/2020 Mita Brown MD TER SET PRODUCTION DESIGNER TER SET PRODUCTION DESIGNER documented in this encounter Medications at Time [...] No fluid or electrolyte disorders Discussed with field case manager and high school social science teacher regarding the discharge planning. Medical complexity / risk: Current Code Status: Full Code There may be grammatical errors in this note due to use of voice recognition software. Portions of the record may have been created with voice recognition software. Occasional wrong-word or '[id number]' substitutions may have occurred due to the inherent limitations of voice recognition software. Read the chart carefully and recognize, using context, where substitutions have occurred. Please contact me directly with questions. Mita Brown MD TER SET PRODUCTION DESIGNER * Taylor Bland, MAIL TELLER - 10/12/2023 9:47 AM CST Gastroenterology Progress [...] esophageal ulcer healing check. Patient lives in [place], [place] and can see a GI provider [...] Errol Viveros MD at 10/12/2023 1:38 PM THEATER SET PRODUCTION DESIGNER TER SET PRODUCTION DESIGNER TER SET PRODUCTION DESIGNER * Tyrel Fatima MD - 10/11/2023 10:27 AM CST General Medicine Daily Progress Background: Patient admitted on 10/10/2023 with chief complaint of anemia - upper gi bleed suspected and transferred from [facility] for gi intervention Today: No reports of vomiting since [place] yesterday. Pt lives at home with . [...] motor sensory deficits Tyrel Fatima MD, FLIP, [facility] TER SET PRODUCTION DESIGNER documented in this encounter H&P Notes * [...] episodes of black emesis. He presented to [facility]. Hecontinued to have episodes of emesis in [...] told he would not make it. At [facility], Vitals were stable. Initial labs showed Hgb [...] - (Added by TW Conv) Alzheimer's dementia ([facility]) Asthma Back pain Cataract Closed fracture of left tibial plateau with delayed healing Closed fracture of right tibial plateau with delayed healing Closed nondisplaced osteochondral fracture of left patella with delayed healing Closed osteochondral fracture of patella, right, with delayed healing, subsequent encounter Clotting disorder ([facility]) ([facility]) Complex tear of medial meniscus of left knee as current injury Complex tear of medial meniscus of right knee as current injury Cramps of lower extremity Diverticulitis of colon Easy bruisability Fatigue Frequent urination Gastroesophageal reflux disease GERD Hypothyroidism Incontinence of urine Muscle weakness Osteoarthritis Osteoarthritis Peptic ulcer Peptic ulcer disease Seizures ([facility]) 1997 last seizure in 1997 SOB (shortness of breath) on exertion Subchondral insufficiency fracture of condyle of left femur ([facility]) ([facility]) Vertigo Vision changes Visual disturbance [...] High Manuel Carreno MD 10/10/2023 11:05 PM TER SET PRODUCTION DESIGNER documented in this encounter Procedure Notes * Jose Martin Gonzalez MD - 10/11/2023 9:59 AM CSTAssociated Order(s): EGD ENDOSCOPY LAB Patient Name: Gunjan Gtz Procedure Date: 10/11/2023 9:59 AM Admit Type: Inpatient Room: [facility] 3 Date of : 1945 Instrument Name: ROSA [id number] Gender: Male Note Status: Sap Pp Consultant Override Procedure: Upper GI endoscopy Indications: Epigastric [...] physician, the nurse, the anesthesiologist and the surveyor rod helper in the pre-procedure area in the endoscopy [...] 10/11/2023 9:59 AM Scope In: Scope Out: TER SET PRODUCTION DESIGNER TER SET PRODUCTION DESIGNER documented in this encounter Consult Notes * [...] reason above. This patient was transferred to [facility] from [facility] on 10/10 after he had [...] or night sweats Hospitalization for wheezing, at [facility], noted GI issues as [...] delayed healing, subsequent encounter Clotting disorder (CMS/HCC) ([facility]) Complex tear of medial meniscus of left knee as current injury Complex tear of medial meniscus of right knee as current injury Cramps of lower extremity Diverticulitis of colon Easy bruisability Fatigue Frequent urination Gastroesophageal reflux disease GERD Hypothyroidism Incontinence of urine Muscle weakness Osteoarthritis Osteoarthritis Peptic ulcer Peptic ulcer disease Seizures ([facility]) 1997 last seizure in 1997 SOB (shortness of breath) on exertion Subchondral insufficiency fracture of condyle of left femur (CMS/HCC) ([facility]) Vertigo Vision changes Visual disturbance [...] reviewed the pertinent imaging from this hospitalization. TER SET PRODUCTION DESIGNER * Taylor Bland, MAIL TELLER - 10/11/2023 9:10 AM CSTAssociated Order(s): IP [...] reason above. This patient was transferred to [facility] from [facility] on 10/10 after he had [...] - (Added by TW Conv) Alzheimer's dementia ([facility]) Asthma Back pain Cataract Closed fracture of left tibial plateau with delayed healing Closed fracture of right tibial plateau with delayed healing Closed nondisplaced osteochondral fracture of left patella with delayed healing Closed osteochondral fracture of patella, right, with delayed healing, subsequent encounter Clotting disorder ([facility]) ([facility]) Complex tear of medial meniscus of left knee as current injury Complex tear of medial meniscus of right knee as current injury Cramps of lower extremity Diverticulitis of colon Easy bruisability Fatigue Frequent urination Gastroesophageal reflux disease GERD Hypothyroidism Incontinence of urine Muscle weakness Osteoarthritis Osteoarthritis Peptic ulcer Peptic ulcer disease Seizures ([facility]) 1997 last seizure in 1997 SOB (shortness of breath) on exertion Subchondral insufficiency fracture of condyle of left femur ([facility]) ([facility]) Vertigo Vision changes Visual disturbance [...] only and have not been reviewed by [facility] Radiology. There will be no report generated by a [facility] Radiologist. Cosigned by Jose Martin Gonzalez MD at 11/01/2023 4:56 PM THEATER SET PRODUCTION DESIGNER TER SET PRODUCTION DESIGNER TER SET PRODUCTION DESIGNER documented in this encounter Miscellaneous Notes * Plan of Care - Tessy Woodruff RN - 10/13/2023 4:20 AM THEATER SET PRODUCTION DESIGNER Goals: Problem: Health Behavior: Goal: Understanding of [...] precautions. Call light within reach, care ongoing. TER SET PRODUCTION DESIGNER * Plan of Care - Marva Vera RN - 10/12/2023 7:52 PM CST Goals: Clinical Goals for the Shift: VSS, up with assist, pain controlled, ? d/c today Summary: VSS, up to ambulate in the luis today, pain controlled, ? D/c tommorow TER SET PRODUCTION DESIGNER * Plan of Care - Lulu Jackson [...] Goal: Pain level will decrease Outcome: Ongoing TER SET PRODUCTION DESIGNER * Plan of Care - Gladis Vera [...] Pt slept with call light in reach. TER SET PRODUCTION DESIGNER documented in this encounter Plan of Treatment Upcoming Encounters Date Type Department Care Team (Latest Contact Info) Description 10/23/2024 10:00 AM THEATER SET PRODUCTION DESIGNER Hospital Encounter [facility] Operating Room [address] [place] [address] [place] [address] [address] 10/23/2024 10:00 AM THEATER SET PRODUCTION DESIGNER - 10/23/2024 1:00 PM THEATER SET PRODUCTION DESIGNER Surgery [facility] Operating Room [address] [place] [address] [place] [address] [address] ARTHROPLASTY TOTAL KNEE LEFT Scheduled Procedures Name Priority Associated Diagnoses Date/Ti me ARTHROPLASTY TOTAL KNEE left knee osteoarthritis 10/23/2024 10:00 AM THEATER SET PRODUCTION DESIGNER ESOPHAGOGASTRODUODENOSCOPY Dysphagia, unspecified type documented as of this encounter Procedures Procedure Name Priority Date/Time Associated Diagnosis Comments DIFFERENTIAL AUTO Routine 10/13/2023 6:04 AM THEATER SET PRODUCTION DESIGNER CBC WITH AUTO DIFFERENTIAL Routine 10/13 6:04 AM THEATER SET PRODUCTION DESIGNER EGFR Routine 10/12/2023 4:45 AM THEATER SET PRODUCTION DESIGNER DIFFERENTIAL AUTO Routine 10/12/2023 4:45 AM THEATER SET PRODUCTION DESIGNER CBC WITH AUTO DIFFERENTIAL Routine 10/12 4:45 AM THEATER SET PRODUCTION DESIGNER BASIC METABOLIC PANEL Routine 10/12/2023 4:45 AM THEATER SET PRODUCTION DESIGNER THYROID FUNCTION CASCADE Timed 3:21 PM THEATER SET PRODUCTION DESIGNER HEMOGLOBIN AND HEMATOCRIT Timed 2023 3:21 PM THEATER SET PRODUCTION DESIGNER T4, FREE Timed 10/11/2023 3:21 PM THEATER SET PRODUCTION DESIGNER FOLATE Timed 10/11/2023 3:21 PM THEATER SET PRODUCTION DESIGNER VITAMIN B12 Timed 10/11/2023 3:21 PM THEATER SET PRODUCTION DESIGNER SURGICAL PATHOLOGY Routine 10/11/2023 11:15 AM THEATER SET PRODUCTION DESIGNER Gastrointestina l hemorrhage with hematemesis ESOPHAGOGASTRODUODENOSCOPY BIOPSY 10/11/2023 10:27 AM THEATER SET PRODUCTION DESIGNER hematemesis CT CHEST ABDOMEN PELVIS W CONTRAST ED Urgent/IP Urgent 10/11/2023 10:12 AM THEATER SET PRODUCTION DESIGNER EGD 10/11/2023 9:59 AM THEATER SET PRODUCTION DESIGNER TROPONIN T HIGH-SENSITIVITY Routine 10/2023 9:20 AM THEATER SET PRODUCTION DESIGNER CRP, HIGH SENSITIVITY Routine 10/11/2023 9:20 AM THEATER SET PRODUCTION DESIGNER DIFFERENTIAL AUTO Routine 10/11/2023 5:56 AM THEATER SET PRODUCTION DESIGNER CBC WITH AUTO DIFFERENTIAL Routine 10/11 5:56 AM THEATER SET PRODUCTION DESIGNER EGFR STAT 10/10/2023 11:32 PM THEATER SET PRODUCTION DESIGNER DIFFERENTIAL AUTO STAT 10/10/2023 11:32 PM THEATER SET PRODUCTION DESIGNER CBC WITH AUTO DIFFERENTIAL STAT 10/10 11:32 PM THEATER SET PRODUCTION DESIGNER TYPE AND SCREEN Timed 10/10/2023 11:32 PM THEATER SET PRODUCTION DESIGNER BASIC METABOLIC PANEL STAT 10/10/2023 11:32 PM THEATER SET PRODUCTION DESIGNER documented in this encounter Results * Differential, auto (10/13/2023 6:04 AM THEATER SET PRODUCTION DESIGNER) Neutrophil abs 3.8 1.5 - 6.5 K/cumm [facility] Imm gran abs 0.1 0.0 - 0.1 K/cumm [facility] Lymphocyte abs 2.9 0.8 - 3.3 K/cumm [facility] Monocyte abs 0.8 0.2 - 0.8 K/cumm [facility] Eosinophil abs 0.3 0.0 - 0.5 K/cumm [facility] Basophil abs 0.1 0.0 - 0.1 K/cumm [facility] Neutrophil pct 47.7 % [facility] Comment: Interpretive Data Percent cell count reference ranges are not reported, since discordance with absolute values may lead to misinterpretation of CBC data. Current Interpretive Data was last revised on 2018. Imm gran pct 0.8 % [facility] Comment: Interpretive Data Percent cell count reference ranges are not reported, since discordance with absolute values may lead to misinterpretation of CBC data. Current Interpretive Data was last revised on 2018. Lymphocyte pct 37.0 % [facility] Comment: Interpretive Data Percent cell count reference ranges are not reported, since discordance with absolute values may lead to misinterpretation of CBC data. Current Interpretive Data was last revised on 2018. Monocyte pct 10.1 % [facility] Comment: Interpretive Data Percent cell count reference ranges are not reported, since discordance with absolute values may lead to misinterpretation of CBC data. Current Interpretive Data was last revised on 2018. Eosinophil pct 3.5 % [facility] Comment: Interpretive Data Percent cell count reference ranges are not reported, since discordance with absolute values may lead to misinterpretation of CBC data. Current Interpretive Data was last revised on 2018. Basophil pct 0.9 % [facility] Comment: Interpretive Data Percent cell count reference ranges are not reported, since discordance with absolute values may lead to misinterpretation of CBC data. Current Interpretive Data was last revised on 2018. Blood 10/13/2023 6:04 AM THEATER SET PRODUCTION DESIGNER 10/13/2023 6:19 AM THEATER SET PRODUCTION DESIGNER us Mita Brown MD LAB BLOOD ORDERABLES Final Result [facility] [address] Department [place] [address] * (ABNORMAL) CBC with auto differential (10/13/2023 6:04 AM THEATER SET PRODUCTION DESIGNER) WBC 7.9 3.8 - 9.9 K/cumm [facility] Hgb 11.7(L) 13.0 - 17.5 g/dL [facility] Hct 35.2(L) 38.9 - 50.3 % [facility] Plt 242 150 - 400 K/cumm [facility] MPV 10.5 9.1 - 12.3 fL [facility] RBC 3.41(L) 4.30 - 5.80 M/cumm [facility] MCV 103.2(H) 81.3 - 96.4 fL [facility] MCH 34.3(H) 27.1 - 33.3 pg [facility] MCHC 33.2 32.3 - 35.7 g/dL [facility] RDW CV 14.2 11.1 - 14.9 % [facility] RDW SD 53.7(H) 35.7 - 48.1 fL [facility] NRBC abs 0.00 0.00 - 0.01 K/cumm [facility] Blood 10/13/2023 6:04 AM THEATER SET PRODUCTION DESIGNER 10/13/2023 6:19 AM THEATER SET PRODUCTION DESIGNER us Mita Brown MD LAB BLOOD ORDERABLES Final Result [facility] [address] Department [place] [address] * eGFR (10/12/2023 4:45 AM THEATER SET PRODUCTION DESIGNER) eGFR 59 mL/min/1. 73 m2 [facility] Comment: Interpretive Data Reference Interval Normal ?>/= [...] last reviewed 2021. Blood 10/12/2023 4:45 AM THEATER SET PRODUCTION DESIGNER 10/12/2023 4:54 AM THEATER SET PRODUCTION DESIGNER us Tyrel Fatima MD LAB BLOOD ORDERABLES Fi nal Result [facility] [address] Department [place] [address] * (ABNORMAL) Differential, auto (10/12/2023 4:45 AM THEATER SET PRODUCTION DESIGNER) Neutrophil abs 5.9 1.5 - 6.5 K/cumm [facility] Imm gran abs 0.0 0.0 - 0.1 K/cumm [facility] Lymphocyte abs 2.6 0.8 - 3.3 K/cumm [facility] Monocyte abs 1.0(H) 0.2 - 0.8 K/cumm [facility] Eosinophil abs 0.2 0.0 - 0.5 K/cumm [facility] Basophil abs 0.1 0.0 - 0.1 K/cumm [facility] Neutrophil pct 60.4 % [facility] Comment: Interpretive Data Percent cell count reference ranges are not reported, since discordance with absolute values may lead to misinterpretation of CBC data. Current Interpretive Data was last revised on 2018. Imm gran pct 0.3 % [facility] Comment: Interpretive Data Percent cell count reference ranges are not reported, since discordance with absolute values may lead to misinterpretation of CBC data. Current Interpretive Data was last revised on 2018. Lymphocyte pct 26.8 % [facility] Comment: Interpretive Data Percent cell count reference ranges are not reported, since discordance with absolute values may lead to misinterpretation of CBC data. Current Interpretive Data was last revised on 2018. Monocyte pct 10.0 % [facility] Comment: Interpretive Data Percent cell count reference ranges are not reported, since discordance with absolute values may lead to misinterpretation of CBC data. Current Interpretive Data was last revised on 2018. Eosinophil pct 2.0 % [facility] Comment: Interpretive Data Percent cell count reference ranges are not reported, since discordance with absolute values may lead to misinterpretation of CBC data. Current Interpretive Data was last revised on 2018. Basophil pct 0.5 % [facility] Comment: Interpretive Data Percent cell count reference ranges are not reported, since discordance with absolute values may lead to misinterpretation of CBC data. Current Interpretive Data was last revised on 2018. Blood 10/12/2023 4:45 AM THEATER SET PRODUCTION DESIGNER 10/12/2023 4:54 AM THEATER SET PRODUCTION DESIGNER Tyrel Fatima MD LAB BLOOD ORDERABLES Fi nal Result Performing Organization Address [facility]/ZIP Co de Phone Number [facility] [address] [place] [address] * Basic metabolic panel (10/12/2023 4:45 AM THEATER SET PRODUCTION DESIGNER) [facility] Sodium 139 135 - 145 mmol/L [facility] Potassium, pl 4.4 3.3 - 4.9 mmol/L [facility] Chloride 107 97 - 110 mmol/L [facility] CO2 24 22 - 32 mmol/L [facility] Anion gap 8 2 - 15 mmol/L [facility] BUN 20 6 - 25 mg/dL [facility] Creatinine 1.25 0.80 - 1.30 mg/dL [facility] Glucose 116 70 - 199 mg/dL [facility] Comment: Interpretive Data Fasting glucose >/= 126 [...] 2022. Calcium 8.6 8.5 - 10.3 mg/dL [facility] Blood 10/12/2023 4:45 AM THEATER SET PRODUCTION DESIGNER 10/12/2023 4:54 AM THEATER SET PRODUCTION DESIGNER Tyrel Fatima MD LAB BLOOD ORDERABLES Fi nal Result Performing Organization Address [facility] Co de Phone Number [facility] [address] Department [place] [address] * (ABNORMAL) CBC with auto differential (10/12/2023 4:45 AM THEATER SET PRODUCTION DESIGNER) [facility] WBC 9.8 3.8 - 9.9 K/cumm [facility] Hgb 11.3(L) 13.0 - 17.5 g/dL [facility] Hct 34.7(L) 38.9 - 50.3 % [facility] Plt 233 150 - 400 K/cumm [facility] MPV 10.9 9.1 - 12.3 fL [facility] RBC 3.35(L) 4.30 - 5.80 M/cumm [facility] MCV 103.6(H) 81.3 - 96.4 fL [facility] MCH 33.7(H) 27.1 - 33.3 pg [facility] MCHC 32.6 32.3 - 35.7 g/dL [facility] RDW CV 14.0 11.1 - 14.9 % [facility] RDW SD 53.1(H) 35.7 - 48.1 fL [facility] NRBC abs 0.00 0.00 - 0.01 K/cumm [facility] Blood 10/12/2023 4:45 AM THEATER SET PRODUCTION DESIGNER 10/12/2023 4:54 AM THEATER SET PRODUCTION DESIGNER us Tyrel Fatima MD LAB BLOOD ORDERABLES Fi nal Result [facility] [address] [place] [address] * T4, free (10/11/2023 3:21 PM THEATER SET PRODUCTION DESIGNER) [facility] Free T4 1.39 0.90 - 1.70 ng/dL [facility] Blood 10/11/2023 3:21 PM THEATER SET PRODUCTION DESIGNER 10/11/2023 3:43 PM THEATER SET PRODUCTION DESIGNER Narrative [facility] - 10/11/2023 4:57 PM THEATER SET PRODUCTION DESIGNER This test was reflexed from a TSH result. us Tyrel Fatima MD LAB BLOOD ORDERABLES Fi nal Result Performing Organization Address City/[facility] Co de Phone Number [facility] [address] [facility] [place] [address] * (ABNORMAL) TSH reflex to free T4 (10/11/2023 3:21 PM THEATER SET PRODUCTION DESIGNER) TSH 7.57(H) 0.30 - 4.20 mcIUnit/mL [facility] Blood 10/11/2023 3:21 PM THEATER SET PRODUCTION DESIGNER 10/11/2023 3:43 PM THEATER SET PRODUCTION DESIGNER Result [facility] Tyrel Fatima MD LAB BLOOD ORDERABLES Ed ited Result - Final Performing Organization Address [facility] Co de Phone Number [facility] [address] [facility] [place] [address] * (ABNORMAL) Vitamin B12 (10/11/2023 3:21 PM THEATER SET PRODUCTION DESIGNER) Vitamin B12 1,995(H) 230 - 1,250 pg/mL [facility] Blood 10/11/2023 3:21 PM THEATER SET PRODUCTION DESIGNER 10/11/2023 3:43 PM THEATER SET PRODUCTION DESIGNER Result [facility] Tyrel Fatima MD LAB BLOOD ORDERABLES Ed ited Result - Final Performing Organization Address [facility]/ZIP Co de Phone Number [facility] [address] [facility] [place] [address] * Folate (10/11/2023 3:21 PM THEATER SET PRODUCTION DESIGNER) Folic acid 17.4 >=5.0 ng/mL [facility] Blood 10/11/2023 3:21 PM THEATER SET PRODUCTION DESIGNER 10/11/2023 3:43 PM THEATER SET PRODUCTION DESIGNER Result [facility] Tyrel Fatima MD LAB BLOOD ORDERABLES Fi nal Result Performing Organization Address City/[facility] Co de Phone Number [facility] [address] Department [place] [address] * Hemoglobin and hematocrit (10/11/2023 3:21 PM THEATER SET PRODUCTION DESIGNER) Hgb 13.3 13.0 - 17.5 g/dL [facility] Hct 41.4 38.9 - 50.3 % [facility] Blood 10/11/2023 3:21 PM THEATER SET PRODUCTION DESIGNER 10/11/2023 3:43 PM THEATER SET PRODUCTION DESIGNER us Tyrel Fatima MD LAB BLOOD ORDERABLES Fi nal Result [facility] [address] [place] [address] * Surgical pathology (10/11/2023 11:15 AM THEATER SET PRODUCTION DESIGNER) Tissue (Esophageal biopsy) 10/11/2023 11:10 AM THEATER SET PRODUCTION DESIGNER Narrative [facility] - 10/13/2023 10:04 AM THEATER SET PRODUCTION DESIGNER [place] [id number] [place], [place] ??[address] Tele: ?? Any Arriaza MD - Emergency Worker Note to Patients: This report may contain [...] REPORT Patient Name: ??EMILIE GUNJAN JR. Address: ??[address] [place] [address] ??[id number] Gender: ??M : ??1945 (Age: 78) Service: ??Medical Location: ??[id number], ?? Hospital #: ??[id number] Patient Type: ??[facility] Accession #: ? [id number] Taken: ? [...] inclusions are identified. Clerical Data Follows A; [id number] REPORT IMAGES AND/OR SCANNED DOCUMENTS ONLY VIEWABLE IN PDF FORMAT The immunohistochemical test(s) cited in this report, if any, was developed and its performance characteristics determined by [facility] Pathology Department. ??It has not been cleared or approved by the U.S. Food and Drug Administration. ??The FDA has determined that such clearance or approval is not necessary. ??This test is used for clinical purposes. ??It should not be regarded as investigational or for research. ??[facility] Laboratory is certified under the Clinical Laboratory [...] MD LAB PATHOLOGY ORDERABLES Final Result [facility] Laboratory [address] [address] * CT Chest Abdomen Pelvis W Contrast (10/11/2023 10:12 AM THEATER SET PRODUCTION DESIGNER) Anatomical Region Laterality Modality Body N/A Computed Tomogra phy 10/11/2023 11:0 3 AM THEATER SET PRODUCTION DESIGNER Impressions 10/11/2023 11:03 AM THEATER SET PRODUCTION DESIGNER A 12 x 12 mm pulmonary nodule in the lateral aspect of the right costophrenic sulcus, new since 2019, is suspicious for primary lung malignancy. Electronically signed by: Jayshree Giles MD, Ph.D Narrative 10/11/2023 11:03 AM THEATER SET PRODUCTION DESIGNER EXAMINATION: ??Computed tomography of chest/abdomen/pelvis with intravenous [...] Final Result * EGD (10/11/2023 9:59 AM THEATER SET PRODUCTION DESIGNER) Anatomical Region Laterality Modality Other Narrative Procedure Note Jose Martin Gonzalez MD - 10/11/2023 9:59 AM CST ENDOSCOPY LAB Patient Name: Gunjan Gtz Procedure Date: 10/11/2023 9:59 AM Admit Type: Inpatient Room: [facility] Date of : 1945 Instrument Name: [id number] Gender: Male Note Status: Sap Pp Consultant Override Procedure: Upper GI endoscopy Indications: Epigastric [...] physician, the nurse, the anesthesiologist and the surveyor rod helper in the pre-procedure area in the endoscopy [...] pathology results. Electronically signed by Jose Martin Goznalez MD Jose Martin Gonzalez M.D. 10/11/2023 11:40:12 AM This document was signed electronically. Number of Addenda: 0 Note Initiated On: 10/11/2023 9:59 AM Scope In: Scope Out: Jose Martin Gonzalez MD ENDOSCOPY PROCEDURES Edited Res ult - Final * CRP (cardiac risk) (10/11/2023 9:20 AM THEATER SET PRODUCTION DESIGNER) hsCRP 5.73 mg/L [facility] Comment: Interpretive data Adult only - values [...] revised on 2018. Blood 10/11/2023 9:20 AM THEATER SET PRODUCTION DESIGNER 10/11/2023 9:24 AM THEATER SET PRODUCTION DESIGNER us Taylor Bland NP LAB BLOOD ORDERABLES Final Res ult [facility] [address] Department [place] [address] * Troponin T high-sensitivity (10/11/2023 9:20 AM THEATER SET PRODUCTION DESIGNER) Trop T hs 18 <=22 ng/L [facility] Comment: Interpretive Data For further hscTnT resources including the diagnostic algorithm and an aid in interpretation, copy and paste this link: [email or web address] Current Interpretive Data last revised 2020. Blood 10/11/2023 9:20 AM THEATER SET PRODUCTION DESIGNER 10/11/2023 9:24 AM THEATER SET PRODUCTION DESIGNER us Taylor Bland MAIL TELLER LAB BLOOD ORDERABLES Final Res ult [facility] [address] Department [place] [address] * Differential, auto (10/11/2023 5:56 AM THEATER SET PRODUCTION DESIGNER) Neutrophil abs 4.4 1.5 - 6.5 K/cumm [facility] Imm gran abs 0.0 0.0 - 0.1 K/cumm [facility] Lymphocyte abs 2.2 0.8 - 3.3 K/cumm [facility] Monocyte abs 0.8 0.2 - 0.8 K/cumm [facility] Eosinophil abs 0.3 0.0 - 0.5 K/cumm [facility] Basophil abs 0.1 0.0 - 0.1 K/cumm [facility] Neutrophil pct 56.5 % [facility] Comment: Interpretive Data Percent cell count reference ranges are not reported, since discordance with absolute values may lead to misinterpretation of CBC data. Current Interpretive Data was last revised on 2018. Imm gran pct 0.4 % [facility] Comment: Interpretive Data Percent cell count reference ranges are not reported, since discordance with absolute values may lead to misinterpretation of CBC data. Current Interpretive Data was last revised on 2018. Lymphocyte pct 28.4 % [facility] Comment: Interpretive Data Percent cell count reference ranges are not reported, since discordance with absolute values may lead to misinterpretation of CBC data. Current Interpretive Data was last revised on 2018. Monocyte pct 10.5 % [facility] Comment: Interpretive Data Percent cell count reference ranges are not reported, since discordance with absolute values may lead to misinterpretation of CBC data. Current Interpretive Data was last revised on 2018. Eosinophil pct 3.3 % [facility] Comment: Interpretive Data Percent cell count reference ranges are not reported, since discordance with absolute values may lead to misinterpretation of CBC data. Current Interpretive Data was last revised on 2018. Basophil pct 0.9 % [facility] Comment: Interpretive Data Percent cell count reference ranges are not reported, since discordance with absolute values may lead to misinterpretation of CBC data. Current Interpretive Data was last revised on 2018. Blood 10/11/2023 5:56 AM THEATER SET PRODUCTION DESIGNER 10/11/2023 6:38 AM THEATER SET PRODUCTION DESIGNER us Melvin Garcia MD LAB BLOOD ORDERABLES Final Res ult [facility] [address] [place] [address] * (ABNORMAL) CBC with auto differential (10/11/2023 5:56 AM THEATER SET PRODUCTION DESIGNER) WBC 7.8 3.8 - 9.9 K/cumm [facility] Hgb 11.9(L) 13.0 - 17.5 g/dL [facility] Hct 35.9(L) 38.9 - 50.3 % [facility] Plt 241 150 - 400 K/cumm [facility] MPV 11.4 9.1 - 12.3 fL [facility] RBC 3.47(L) 4.30 - 5.80 M/cumm [facility] MCV 103.5(H) 81.3 - 96.4 fL [facility] MCH 34.3(H) 27.1 - 33.3 pg [facility] MCHC 33.1 32.3 - 35.7 g/dL [facility] RDW CV 14.4 11.1 - 14.9 % [facility] RDW SD 55.2(H) 35.7 - 48.1 fL [facility] NRBC abs 0.00 0.00 - 0.01 K/cumm [facility] Blood 10/11/2023 5:56 AM THEATER SET PRODUCTION DESIGNER 10/11/2023 6:38 AM THEATER SET PRODUCTION DESIGNER us Melvin Garcia MD LAB BLOOD ORDERABLES Final Res ult Performing Organization Address [facility]/ZIP Co de Phone Number [facility] [address] [place] [address] * eGFR (10/10/2023 11:32 PM THEATER SET PRODUCTION DESIGNER) eGFR 59 mL/min/1. 73 m2 [facility] Comment: Interpretive Data Reference Interval Normal [...] reviewed 2021. Blood 10/10/2023 11:3 2 PM THEATER SET PRODUCTION DESIGNER 10/10/2023 11:41 PM THEATER SET PRODUCTION DESIGNER us Melvin Garcia MD LAB BLOOD ORDERABLES Final Res ult Performing Organization Address [facility]/ZIP Co de Phone Number [facility] [address] [employer] [place], [place] [id number] * (ABNORMAL) Differential, auto (10/10/2023 11:32 PM THEATER SET PRODUCTION DESIGNER) Neutrophil abs 5.0 1.5 - 6.5 K/cumm [facility] Imm gran abs 0.1 0.0 - 0.1 K/cumm [facility] Lymphocyte abs 2.7 0.8 - 3.3 K/cumm [facility] Monocyte abs 0.9(H) 0.2 - 0.8 K/cumm [facility] Eosinophil abs 0.4 0.0 - 0.5 K/cumm [facility] Basophil abs 0.1 0.0 - 0.1 K/cumm [facility] Neutrophil pct 54.9 % [facility] Comment: Interpretive Data Percent cell count reference ranges are not reported, since discordance with absolute values may lead to misinterpretation of CBC data. Current Interpretive Data was last revised on 2018. Imm gran pct 0.5 % [facility] Comment: Interpretive Data Percent cell count reference ranges are not reported, since discordance with absolute values may lead to misinterpretation of CBC data. Current Interpretive Data was last revised on 2018. Lymphocyte pct 29.3 % [facility] Comment: Interpretive Data Percent cell count reference ranges are not reported, since discordance with absolute values may lead to misinterpretation of CBC data. Current Interpretive Data was last revised on 2018. Monocyte pct 10.2 % [facility] Comment: Interpretive Data Percent cell count reference ranges are not reported, since discordance with absolute values may lead to misinterpretation of CBC data. Current Interpretive Data was last revised on 2018. Eosinophil pct 4.3 % [facility] Comment: Interpretive Data Percent cell count reference ranges are not reported, since discordance with absolute values may lead to misinterpretation of CBC data. Current Interpretive Data was last revised on 2018. Basophil pct 0.8 % [facility] Comment: Interpretive Data Percent cell count reference ranges are not reported, since discordance with absolute values may lead to misinterpretation of CBC data. Current Interpretive Data was last revised on 2018. Blood 10/10/2023 11:3 2 PM THEATER SET PRODUCTION DESIGNER 10/10/2023 11:41 PM THEATER SET PRODUCTION DESIGNER us Melvin Garcia MD LAB BLOOD ORDERABLES Final Res ult Performing Organization Address City/[facility]/ZIP Co de Phone Number [facility] [address] Department [place] [address] * Type and screen (10/10/2023 11:32 PM THEATER SET PRODUCTION DESIGNER) [facility] Sarah, indirect Negative ABO Rh O Negative [facility] Blood 10/10/2023 11:3 2 PM THEATER SET PRODUCTION DESIGNER 10/10/2023 11:36 PM THEATER SET PRODUCTION DESIGNER Narrative [facility] - 10/11/2023 12:38 AM THEATER SET PRODUCTION DESIGNER Has the patient had Daratumumab or Isatuximab in the past 6 months?->Unknown us Manuel Carreno MD LAB BLOOD BANK TEST ORDERAB LES Final Result Performing Organization Address [facility] Co de Phone Number [facility] [address] [place] [address] * (ABNORMAL) Basic metabolic panel (10/10/2023 11:32 PM THEATER SET PRODUCTION DESIGNER) [facility] Sodium 139 135 - 145 mmol/L [facility] Potassium, pl 4.4 3.3 - 4.9 mmol/L [facility] Comment:Hemolyzed; potassium value may be falsely elevated by as much as 0.3 - 0.5 mmol/L. Suggest redraw and reanalysis Chloride 104 97 - 110 mmol/L [facility] CO2 25 22 - 32 mmol/L [facility] Anion gap 10 2 - 15 mmol/L [facility] BUN 28(H) 6 - 25 mg/dL [facility] Creatinine 1.25 0.80 - 1.30 mg/dL [facility] Glucose 109 70 - 199 mg/dL [facility] Comment: Interpretive Data Fasting glucose >/= 126 [...] 2022. Calcium 9.1 8.5 - 10.3 mg/dL [facility] Blood 10/10/2023 11:3 2 PM THEATER SET PRODUCTION DESIGNER 10/10/2023 11:41 PM THEATER SET PRODUCTION DESIGNER us Melvin Garcia MD LAB BLOOD ORDERABLES Final Res ult [facility] [address] [place] [address] * (ABNORMAL) CBC with auto differential (10/10/2023 11:32 PM THEATER SET PRODUCTION DESIGNER) WBC 9.1 3.8 - 9.9 K/cumm [facility] Hgb 12.9(L) 13.0 - 17.5 g/dL [facility] Hct 39.6 38.9 - 50.3 % [facility] Plt 250 150 - 400 K/cumm [facility] MPV 11.3 9.1 - 12.3 fL [facility] RBC 3.78(L) 4.30 - 5.80 M/cumm [facility] MCV 104.8(H) 81.3 - 96.4 fL [facility] MCH 34.1(H) 27.1 - 33.3 pg [facility] MCHC 32.6 32.3 - 35.7 g/dL [facility] RDW CV 14.5 11.1 - 14.9 % [facility] RDW SD 55.4(H) 35.7 - 48.1 fL [facility] NRBC abs 0.00 0.00 - 0.01 K/cumm [facility] Blood 10/10/2023 11:3 2 PM THEATER SET PRODUCTION DESIGNER 10/10/2023 11:41 PM THEATER SET PRODUCTION DESIGNER us Thishara Merza MD LAB BLOOD ORDERABLES Final Res ult [facility] [address] Department [place] [address] documented in this encounter Visit [...] Indications: Fever, PainIndications:Fever,Pain Given 10/13/2023 7:51 AM THEATER SET PRODUCTION DESIGNER 650 mg Given 10/12/2023 2:21 PM THEATER SET PRODUCTION DESIGNER 650 mg albuterol HFA (PROVENTIL HFA,VENTOLIN HFA,PROAIR HFA) 90 mcg/actuation inhaler 2 puff 2 puff, inhalation, Every 4 hours PRN (respiratory equipment assistant), wheezing, shortness of breath, Starting on [...] Wed10/11/23 at 2100 Given 10/12/2023 8:50 PM THEATER SET PRODUCTION DESIGNER 10 mg Given 10/11/2023 9:02 PM THEATER SET PRODUCTION DESIGNER 10 mg famotidine (PEPCID) injection 10 mg 10 mg, intravenous, Administer over 2 Minutes, Once, On Wed10/11/23 at 0030, For 1 dose Given 10/10/2023 11:59 PM THEATER SET PRODUCTION DESIGNER 10 mg gabapentin (NEURONTIN) capsule 200 mg 200 mg, oral, 3 times daily, First dose on Wed10/11/23 at 0900 Given 10/13/2023 7:51 AM THEATER SET PRODUCTION DESIGNER 200 mg Given 10/12/2023 8:50 PM THEATER SET PRODUCTION DESIGNER 200 mg Given 10/12/2023 5:03 PM THEATER SET PRODUCTION DESIGNER 200 mg ioversoL (OPTIRAY 350) syringe 75 mL 75 mL, intravenous, Once in imaging, contrast, Starting on Wed10/11/23 at 0958, For 1 dose Contrast Given 10/11/2023 10:05 AM THEATER SET PRODUCTION DESIGNER 69 mL Lactated Ringer's (LR) infusion 100 mL/hr, intravenous, Continuous, Starting on Wed10/11/23 at 0345, For 10 hours Restarted 10/11/2023 10:58 AM THEATER SET PRODUCTION DESIGNER New Bag 10/11/2023 4:49 AM THEATER SET PRODUCTION DESIGNER 100 mL/hr 100 mL/hr levothyroxine (SYNTHROID) tablet 150 mcg 150 mcg, oral, Daily (early AM), First dose on Wed10/11/23 at 0600, Administer on an empty stomach, preferably 30 minutes before breakfast. Take 4 hours apart from antacids, iron and calcium products. Separate from tube feeds, if applicable. Given 10/13/2023 5:44 AM THEATER SET PRODUCTION DESIGNER 150 mcg Given 10/12/2023 9:59 AM THEATER SET PRODUCTION DESIGNER 150 mcg Given 10/11/2023 6:28 AM THEATER SET PRODUCTION DESIGNER 150 mcg mirtazapine (REMERON) tablet 7.5 mg 7.5 mg, oral, Nightly, First dose on Wed10/11/23 at 2100 Given 10/12/2023 8:50 PM THEATER SET PRODUCTION DESIGNER 7.5 mg Given 10/11/2023 9:02 PM THEATER SET PRODUCTION DESIGNER 7.5 mg morphine injection 2 mg 2 mg, intravenous, Administer over 4 Minutes, Once, On Wed10/11/23 at 0030, For 1 dose Given 10/10/2023 11:59 PM THEATER SET PRODUCTION DESIGNER 2 m g ondansetron (ZOFRAN) injection 4 [...] otherwise manipulate tablet/capsule. Given 10/12/2023 8:50 PM THEATER SET PRODUCTION DESIGNER 15 mg Given 10/11/2023 9:01 PM THEATER SET PRODUCTION DESIGNER 15 mg oxyCODONE (ROXICODONE) tablet 5 mg 5 mg, oral, Every 4 hours PRN, 2nd line for pain, Starting on Wed10/10/23 at 2309, Indications: PainIndications:Pain Given 10/10/2023 11:20 PM THEATER SET PRODUCTION DESIGNER 5 mg pantoprazole (PROTONIX) 40 mg in sodium chloride 0.9% 10 mL IV Syringe 40 mg, intravenous, at 300 mL/hr, Administer over 2 Minutes, 2 times daily, First dose on Wed10/11/23 at 0915, For IV administration, reconstitute 40 mg vial with 10 mL sodium chloride 0.9% for injection for a final concentration of 4 mg/mL, Indications: GI BleedIndications:GI Bleed Given 10/11/2023 9:01 PM THEATER SET PRODUCTION DESIGNER 40 mg 300 mL/hr Given 10/11/2023 9:11 AM THEATER SET PRODUCTION DESIGNER 40 mg 300 mL/hr pantoprazole DR (PROTONIX) extended release tablet 40 mg 40 mg, oral, 2 times daily, First dose on Wed10/12/23 at 1400, Do not crush, chew, cut, dissolve, open or otherwise manipulate tablet/capsule., Indications: GI BleedIndications:GI Bleed Given 10/13/2023 7:51 AM THEATER SET PRODUCTION DESIGNER 40 mg Given 10/12/2023 8:50 PM THEATER SET PRODUCTION DESIGNER 40 mg Given 10/12/2023 2:21 PM THEATER SET PRODUCTION DESIGNER 40 mg senna-docusate (PERICOLACE) 8.6-50 mg per tablet 1 tablet 1 tablet, oral, Nightly, First dose on Wed10/11/23 at 2100 Given 10/12/2023 8:50 PM THEATER SET PRODUCTION DESIGNER 1 tablet Given 10/11/2023 9:02 PM THEATER SET PRODUCTION DESIGNER 1 tablet senna-docusate (PERICOLACE) 8.6-50 mg per tablet 1 tablet 1 tablet, oral, Once, On Wed10/13/23 at 1515, For 1 dose Given 10/13/2023 2:40 PM THEATER SET PRODUCTION DESIGNER 1 tablet sodium chloride 0.9% flush 0.5-20 mL 0.5-20 mL, intra-catheter, Every 8 hours scheduled, First dose on 10/10/23 at 2200, Flush volume based on line type and size. Given 10/12/2023 10:00 AM THEATER SET PRODUCTION DESIGNER 10 mL Given 10/11/2023 9:04 PM THEATER SET PRODUCTION DESIGNER 10 mL Given 10/10/2023 11:59 PM THEATER SET PRODUCTION DESIGNER 10 mL sodium chloride 0.9% flush 0.5-20 mL 0.5-20 mL, intra-catheter, As needed, line care, Starting on 10/10/23 at 2125, Flush volume based on line type and size. Flush before and after each use. Given 10/12/2023 10:00 AM THEATER SET PRODUCTION DESIGNER 10 mL tamsulosin (FLOMAX) extended release capsule 0.4 mg 0.4 mg, oral, Nightly, First dose on Wed10/11/23 at 2100, Do not crush, chew, cut, dissolve, open or otherwise manipulate tablet/capsule. Given 10/12/2023 8:50 PM THEATER SET PRODUCTION DESIGNER 0.4 mg Given 10/11/2023 9:02 PM THEATER SET PRODUCTION DESIGNER 0.4 mg tiZANidine (ZANAFLEX) tablet 2 mg 2 mg, oral, Nightly, First dose on Wed10/11/23 at 2100, Administer on an empty stomach Given 10/12/2023 8:50 PM THEATER SET PRODUCTION DESIGNER 2 mg Given 10/11/2023 9:02 PM THEATER SET PRODUCTION DESIGNER 2 mg documented in this encounter Discontinued [...] Recently Administered Medications Times are shown in THEATER SET PRODUCTION DESIGNER. Scheduled Medication Order 10/11/2023 10/12/2023 10/13/2023 donepeziL [...] Transfer Provider - Reason: Patient not available)1225 ([facility] Unhold - Provider: Automatic Transfer Provider) [...] dissolve, open or otherwise manipulate tablet/capsule. 1027 ([facility] Hold - Provider: Automatic Transfer Provider - Reason: Patient not available)1225 ([facility] Unhold - Provider: Automatic Transfer Provider)2100 [...] 0911 (Given - Provider: Lulu Jackson RN)1027 ([facility] Hold - Provider: Automatic Transfer Provider - Reason: Patient not available)1225 ([facility] Unhold - Provider: Automatic Transfer Provider)2100 [...] Gladis Vera RN - Reason: IV Infusing)1027 ([facility] Hold - Provider: Automatic Transfer Provider - Reason: Patient not available)1225 ([facility] Unhold - Provider: Automatic Transfer Provider)1504 [...] dissolve, open or otherwise manipulate tablet/capsule. 1027 ([facility] Hold - Provider: Automatic Transfer Provider - Reason: Patient not available)1225 ([facility] Unhold - Provider: Automatic Transfer Provider)2101 (Given - Provider: Latisha Navarrete RN) 2049 (Given - Provider: Tessy Woodruff RN) tiZANidine (ZANAFLEX) tablet 2 mg 2 mg, oral, Nightly, First dose on Wed10/11/23 at 2100, Administer on an empty stomach 1027 ([facility] Hold - Provider: Automatic Transfer Provider - Reason: Patient not available)1225 ([facility] Unhold - Provider: Automatic Transfer Provider)2101 [...] puff, inhalation, Every 4 hours PRN (respiratory equipment assistant), wheezing, shortness of breath, Starting on Wed10/11/23 at 0326 1027 ([facility] Hold - Provider: Automatic Transfer Provider - Reason: Patient not available)1225 ([facility] Unhold - Provider: Automatic Transfer Provider) [...] at 2124, Indications: Nausea and Vomiting 1027 ([facility] Hold - Provider: Automatic Transfer Provider [...] 10/10/2023 documented in this encounter Care Teams Digester Hand Relationship Specialty Start Date End Date Mark Ramos MD PCP - General Family Medicine 05/05/23 08/02/24 Unknown, Notinfile 03/12/22 [place] [address] [place] [address] 03/12/22 Morgan Enriquez MD [address] [facility] [address] [place] [address] Consulting Physician Pulmonary Disease 10/13/23 Carroll Cedillo MD [address] [facility] [address] [place] [address] Consulting Physician Gastroenterology 10/13/23 documented as of this encounter
--- OUTSIDE RECORDS SUMMARY | 2024-10-11 03:03 | XMS_ITS | Encounter Summary ---
Author Organization [facility] Healthcare Address [address] [place] [address] Care Team Providers Care Track Fitter Name Role Phone Wolfgang Serrano MD Primary Care Provider [phone] Unknown, Notinfile Unavailable Unavailable Santino Funk MD Unavailable Chuy Enriquez MD Unavailable Luis Felipe Cedillo MD Unavailable [phone] Reason for Referral * MRI/CAT/PET Scan (Routine) - Closed Specialty Diagnoses / Procedures Referred By Contboone t Referred To Contact Radiology Diagnoses Lung nodule Procedures CT chest without contrast Chuy Enriquez MD [address] [facility] [address] [place] [address] Phone: tel: fax: [facility] [address] [place] [address] Referral ID Status Reason Start Date Expiration Date Visits Re quested Visits Authorized [id number] Closed 01/18/2024 02/17/2024 1 1 EMIC ADVISER Encounter Details Date Type Department Care Team (Late st Contact Info) Description 10/13/2023 Orders Only [facility] [address] [facility] [address] [place] [address] Chuy Enriquez MD [address] [address] [place] [address] Lung nodule Social History Tobacco Use Types [...] relatives? Three times a week 11/25/2021 Attends Zoroastrianism Services Not on file 11/25 Active Member [...] health care facility (including now)? No 11/25/2021 Personal Safety Answer Date Recorded Getting School Help Needed Denies 10/10 Sex and Gender Information Value Date Recorded Sex Assigned at Not on file Legal Sex Male 3:25 PM ACADEMIC ADVISER Gender Identity Not on file Sexual Orientation Not on file documented as of this encounter Plan of Treatment Upcoming Encounters Date Type Department Care Team (Latest Contact Info) Description 10/23/2024 10:00 AM ACADEMIC ADVISER Hospital Encounter [facility] Operating Room [address] [place] [address] [place] [address] [address] 10/23/2024 10:00 AM ACADEMIC ADVISER - 10/23/2024 1:00 PM ACADEMIC ADVISER Surgery [facility] Operating Room [address] [place] [address] [place] [address] [address] ARTHROPLASTY TOTAL KNEE LEFT Scheduled Procedures Name Priority Associated Diagnoses Date/Ti me ARTHROPLASTY TOTAL KNEE left knee osteoarthritis 10/23/2024 10:00 AM ACADEMIC ADVISER ESOPHAGOGASTRODUODENOSCOPY Dysphagia, unspecified type documented as of [...] documented in this encounter Care Teams Track Fitter Relationship Specialty Start Date End Date Wolfgang Serrano MD PCP - General Family Medicine 05/05/23 08/02/24 Unknown, Notinfile 03/12/22 [place] [address] [place] [address] 03/12/22 Chuy Enriquez MD [address] [place] [address] Consulting Physician Pulmonary Disease 10/13/23 Luis Felipe Cedillo MD [address] [place] [address] Consulting Physician Gastroenterology 10/13/23 documented as of this encounter
--- OUTSIDE RECORDS SUMMARY | 2024-10-11 03:03 | XMS_ITS | Encounter Summary ---
Author Organization [facility] Address [address] [place] [address] Phone Care Team Providers Care Manufacturing Technology Analyst Name Role Phone Wolfgang Serrano MD Primary Care Provider [phone] Unknown, Notinfile Unavailable Unavailable Santino Funk MD Unavailable [phone] Chuy Enriquez MD Unavailable [phone] Luis Felipe Cedillo MD Unavailable Encounter Details Date Type Department Care Team (Late st Contact Info) Description 10/28/2023 Telephone [facility] [address] [place] [address] Amari Torrez, B.A. Social History [...] relatives? Three times a week 11/25/2021 Attends Jainism Services Not on file 11/25 Active Member [...] a group home (including now)? No 11/25/2021 Personal Safety Answer Date Recorded Getting School Help Needed Denies 10/10 Sex and Gender Information Value Date Recorded Sex Assigned at Not on file Legal Sex Male 3:25 PM CLINICAL APPLICATIONS SPECIALIST Gender Identity Not on file Sexual Orientation Not on file documented as of this encounter Miscellaneous Notes * Telephone Encounter - Amari Torrez B.A. - 10/28/2023 3:19 PM CST Pt has new patient referral scanned into chart under Ref Phys Doc. Please contact pt to schedule. ICAL APPLICATIONS SPECIALIST documented in this encounter Plan of Treatment Upcoming Encounters Date Type Department Care Team (Latest Contact Info) Description 10/23/2024 10:00 AM CLINICAL APPLICATIONS SPECIALIST Hospital Encounter [facility] Operating Room [id number] [place] [address] [place] [address] [address] 10/23/2024 10:00 AM CLINICAL APPLICATIONS SPECIALIST - 10/23/2024 1:00 PM CLINICAL APPLICATIONS SPECIALIST Surgery [facility] Operating Room [address] [place] [address] [place] [address] [id number] ARTHROPLASTY TOTAL KNEE LEFT Scheduled Procedures Name Priority Associated Diagnoses Date/Ti me ARTHROPLASTY TOTAL KNEE left knee osteoarthritis 10/23/2024 10:00 AM CLINICAL APPLICATIONS SPECIALIST ESOPHAGOGASTRODUODENOSCOPY Dysphagia, unspecified type documented as of this encounter Visit Diagnoses Not on filedocumented in this encounter Care Teams Manufacturing Technology Analyst Relationship Specialty Start Date End Date Wolfgang Serrano MD PCP - General Family Medicine 05/05/23 08/02/24 Unknown, Notinfile 03/12/22 [place] [address] [facility] [address] [place] [address] 03/12/22 Chuy Enriquez MD [address] [facility] [address] [place] [address] Consulting Physician Pulmonary Disease 10/13/23 Luis Felipe Cedillo MD [address] [facility] [address] [address] Consulting Physician Gastroenterology 10/13/23 documented as of this encounter
--- OUTSIDE RECORDS SUMMARY | 2024-10-11 03:03 | XMS_ITS | Encounter Summary ---
Author Organization [facility] Address [address] [facility] [address] [place] [address] Care Team Providers Care Sourcing Specialist Name Role Phone Wolfgang Serrano MD Primary Care Provider [phone] Unknown, Notinfile Unavailable Unavailable Santino Funk MD Unavailable [phone] Reason for Referral * Procedure (Routine) - Closed Specialty Diagnoses / Procedures Referred By Contac t Referred To Contact Diagnoses 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 Biceps tendinitis of left upper extremity Procedures Large Joint (Hip, Knee, Shoulder) Injection: L glenohumeral George Sepulveda MD [address] [place] [address] Phone: tel: fax: [facility] Referral ID Status Reason Start Date Expiration Date Visits Re quested Visits Authorized [id number] Closed 05/18/2023 06/16/2024 1 1 Reason for Visit * Reason Comments Test Results MRI results Encounter Details Date Type Department Care Team (Latest Contact Info) Description 05/18/2023 9:00 AM CDT Office Visit [facility] Orthopedics & Sports Medicine at [facility] [address] [place] [address] [place] [address] [facility] [address] [place] [address] 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 [...] file Legal Sex Male 3:25 PM ACCOUNTS MANAGER Gender Identity Not on file Sexual [...] Contact Info) Description 10/23/2024 10:00 AM ACCOUNTS MANAGER Hospital Encounter [facility] Operating Room [address] [place] [address] [place] [address] [address] 10/23/2024 10:00 AM ACCOUNTS MANAGER - 10/23/2024 1:00 PM ACCOUNTS MANAGER Surgery [facility] Operating Room [address] [place] [address] [place] [address] [address] ARTHROPLASTY TOTAL KNEE LEFT Scheduled Procedures Name Priority Associated Diagnoses Date/Ti me ARTHROPLASTY TOTAL KNEE left knee osteoarthritis 10/23/2024 10:00 AM ACCOUNTS MANAGER ESOPHAGOGASTRODUODENOSCOPY Dysphagia, unspecified type documented as of this encounter Procedures Procedure Name Priority Date/Time Associated Diagnosis Comments [place] ARTHROCENTESIS ASPIR&/INJ MAJOR JT/BURSA W/O US Routine 05/18/2023 9:00 AM CDT 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 Biceps tendinitis of left upper extremity documented in this encounter Results * [place] ARTHROCENTESIS ASPIR&/INJ MAJOR JT/BURSA W/O US (05/18/2023 [...] Shoulder documented in this encounter Care Teams Sourcing Specialist Relationship Specialty Start Date End Date oWlfgang Serrano MD PCP - General Family Medicine 05/05/23 08/02/24 Unknown, Notinfile 03/12/22 [place] [address] [address] 03/12/22 documented as of this encounter
--- OUTSIDE RECORDS SUMMARY | 2024-10-11 03:03 | XMS_ITS | Encounter Summary ---
Author Organization [facility] Healthcare Address [address] [place] [address] Care Team Providers Care Dinkey Operator Name Role Phone Wolfgang Serrano MD Primary Care Provider [phone] Unknown, Notinfile Unavailable Unavailable Santino Funk MD Unavailable Chuy Enriquez MD Unavailable Luis Felipe Cedillo MD Unavailable Encounter Details Date Type Department Care Team (Late st Contact Info) Description 10/10/2023 Orders Only [facility] Hospitalists [facility] [place] [address] Melvin Garcia MD [address] [place] [address] [place] [address] Social History Tobacco Use Types [...] in a detention (including now)? No 11/25/2021 Personal Safety Answer Date Recorded Getting School Help Needed Denies 10/10 Sex and Gender Information Value Date Recorded Sex Assigned at Not on file Legal Sex Male 3:25 PM SCRUM PROJECT MANAGER Gender Identity Not on file Sexual Orientation Not on file documented as of this encounter Plan of Treatment Upcoming Encounters Date Type Department Care Team (Latest Contact Info) Description 10/23/2024 10:00 AM SCRUM PROJECT MANAGER Hospital Encounter [facility] Operating Room [address] [place] [address] [place] [address] [facility] [address] [place] [address] 10/23/2024 10:00 AM SCRUM PROJECT MANAGER - 10/23/2024 1:00 PM SCRUM PROJECT MANAGER Surgery [facility] Operating Room [address] [place] [address] [place] [address] [facility] [address] [place] [address] ARTHROPLASTY TOTAL KNEE LEFT Scheduled Procedures Name Priority Associated Diagnoses Date/Ti me ARTHROPLASTY TOTAL KNEE left knee osteoarthritis 10/23/2024 10:00 AM SCRUM PROJECT MANAGER ESOPHAGOGASTRODUODENOSCOPY Dysphagia, unspecified type documented as of this encounter Visit Diagnoses Not on filedocumented in this encounter Care Teams Dinkey Operator Relationship Specialty Start Date End Date Wolfgang Serrano MD PCP - General Family Medicine 05/05/23 08/02/24 Unknown, Notinfile 03/12/[address] [place] [address] [facility] [address] [place] [address] 03/12/22 Chuy Enriquez MD [address] [facility] [address] [place] [address] Consulting Physician Pulmonary Disease 10/13/23 Luis Felipe Cedillo MD [address] [facility] [address] [place] [address] Consulting Physician Gastroenterology 10/13/23 documented as of this encounter
--- OUTSIDE RECORDS SUMMARY | 2024-10-11 03:03 | XMS_ITS | Encounter Summary ---
Author Organization [facility] Healthcare Address [address] [place] [address] Care Team Providers Care Broomcorn Sorter Name Role Phone Wolfgang Serrano MD Primary Care Provider [phone] Unknown, Notinfile Unavailable Unavailable Santino Funk MD Unavailable Chuy Enriquez MD Unavailable Luis Felipe Cedillo MD Unavailable Reason for Visit * Diagnostic Imaging (Routine) - Closed Specialty Diagnoses / Procedures Referred By Contac t Referred To Contact Diagnoses Primary osteoarthritis of both knees Procedures XR Knee Right [address] [place] [address] [address] Phone: tel: fax: [facility] Referral ID Status Reason Start Date Expiration Date Visits Re quested Visits Authorized [id number] Closed 11/03/2023 12/02/2024 1 1 Encounter Details Date Type Department Care Team (Latest Contact Info) Description 11/03/2023 10:08 AM MANAGER FLORAL - 11/03/2023 11:59 PM MANAGER FLORAL Hospital Encounter [facility] [address] [address] Discharge Disposition: Discharge to home [...] file Legal Sex Male 3:25 PM MANAGER FLORAL Gender Identity Not on file Sexual Orientation [...] (Latest Contact Info) Description 10/23/2024 10:00 AM [facility] Hospital Encounter [facility] Operating Room [address] [place] [address] [place] [address] [address] 10/23/2024 10:00 AM MANAGER FLORAL - 10/23/2024 1:00 PM [facility] Surgery [facility] Operating Room [address] [place] [address] [place] [address] [address] ARTHROPLASTY TOTAL KNEE LEFT Scheduled Procedures Name Priority Associated Diagnoses Date/Ti me ARTHROPLASTY TOTAL KNEE left knee osteoarthritis 10/23/2024 10:00 AM MANAGER FLORAL ESOPHAGOGASTRODUODENOSCOPY Dysphagia, unspecified type documented as of this encounter Procedures Procedure Name Priority Date/Time Associated Diagnosis Comments XR KNEE RIGHT 3 VIEWS Schedule Routine, Read Routine (OP Routine) 11/03/2023 11:23 AM MANAGER FLORAL Primary osteoarthritis of both knees documented in this encounter Results * XR Knee Right 3 View (11/03/2023 11:23 AM MANAGER FLORAL) Anatomical Region Laterality Modality Lower Extremities, Knee Right Computed Radiography Narrative 11/03/2023 11:23 AM MANAGER FLORAL My interpretation of his x-rays today: ??Three [...] on filedocumented in this encounter Care Teams Broomcorn Sorter Relationship Specialty Start Date End Date Wolfgang Serrano MD PCP - General Family Medicine 05/05/23 08/02/24 Unknown, Notinfile 03/12/22 [place] [address] [address] [facility] [address] [place] [address] 03/12/22 Chuy Enriquez MD [address] [facility] [address] [place] [address] Consulting Physician Pulmonary Disease 10/13/23 Luis Felipe Cedillo MD [address] [facility] [address] [place] [address] Consulting Physician Gastroenterology 10/13/23 documented as of this encounter
--- OUTSIDE RECORDS SUMMARY | 2024-10-11 03:03 | XMS_ITS | Encounter Summary ---
Author Organization [facility] Healthcare Address [address] [place] [address] Care Team Providers Care Coal Feeder Operator Name Role Phone Wolfgang Serrano MD Primary Care Provider [phone] Unknown, Notinfile Unavailable Unavailable Santino Funk MD Unavailable Reason for Visit * Auth/Cert (Routine) Specialty Diagnoses / Procedures Referred By Contac t Referred To Contact Diagnoses Coffee ground emesis GI Bleed Procedures n/a Referral ID Status Reason Start Date Expiration Date Visits Re quested Visits Authorized [id number] 1 1 Encounter Details Date Type Department Care Team (Late st Contact Info) Description 10/11/2023 10:58 AM GAS SHOVEL OPERATOR Anesthesia Event [facility] [address] [place] [address] Dioni Askew MD [address] [facility] ANESTHESIA [place], [place] [id number] Sheryl Bourne CRNA [address] [place] [address] Anesthesia Record Procedure Summary Procedure [...] a senior care (including now)? No 11/25/2021 Personal Safety Answer Date Recorded Getting School Help Needed Denies 10/10 Sex and Gender Information Value Date Recorded Sex Assigned at Not on file Legal Sex Male 3:25 PM GAS SHOVEL OPERATOR Gender Identity Not on file Sexual Orientation Not on file documented as of this encounter OR Notes * Anesthesia Postprocedure Evaluation - Sheryl Bourne CRNA - 10/11/2023 11:32 AM CST Patient: Abrahan Gtz Jr. Procedure Summary Date: 10/11/23 Room / Location: [facility] ENDOSCOPY Anesthesia Start: 1058 Anesthesia [...] of consciousness: follows simple commands and arouses store operations specialist Pain management: adequate Airway patency: adequate Cardiovascular status: acceptable and hemodynamically stable Respiratory status: acceptable Hydration status: acceptable Pt is: normothermic Nausea/Vomiting status: none No notable events documented. SHOVEL OPERATOR * Anesthesia Procedure Notes - Sheryl Bourne CRNA - 10/11/2023 11:11 AM GAS SHOVEL OPERATOR Associated Order(s): Airway Airway Patient location: OR Urgency: elective Indications for airway management: anesthesia Difficult airway: no Staff: Supervising provider: Dioni Askew MD Placed by: ROUTE CONTRACTOR: Sheryl Bourne CRNA Emergent airway documentation: Risks [...] with: silk tape Number of attempts: 1 SHOVEL OPERATOR * Anesthesia Preprocedure Evaluation - Dioni Askew [...] mild. + PAD/Aorta disease - Pertinent negatives: [place] and atrial fibrillation Comments: TTE (02/2020): Conclusions: [...] of total knee replacement, right 12/01/2022 Neuropathy ([facility] 12/01/2022 Idiopathic peripheral neuropathy Abnormality of gait and mobility Pain due to total right knee replacement ([facility] ([facility]) 04/28/2022 Hamstring tendinitis of right thigh 04/28/2022 Quadriceps weakness 04/28/2022 Edema 04/04/2020 Intermittent claudication ([facility]) 04/04/2020 Iron deficiency anemia 04/04/2020 Peripheral vascular disease ([facility]) 04/04/2020 Goiter 12/05/2019 Subchondral insufficiency fracture of condyle of left femur ([facility] ([facility]) 08/30/2018 Closed fracture of left tibial plateau [...] Alzheimer's dementia ([facility]) Asthma Back pain Cataract Closed fracture of left tibial plateau with delayed healing Closed fracture of right tibial plateau with delayed healing Closed nondisplaced osteochondral fracture of left patella with delayed healing Closed osteochondral fracture of patella, right, with delayed healing, subsequent encounter Clotting disorder ([facility] ([facility]) Complex tear of medial meniscus of left knee as current injury Complex tear of medial meniscus of right knee as current injury Cramps of lower extremity Diverticulitis of colon Easy bruisability Fatigue Frequent urination Gastroesophageal reflux disease GERD Hypothyroidism Incontinence of urine Muscle weakness Osteoarthritis Osteoarthritis Peptic ulcer Peptic ulcer disease Seizures ([facility]) 1997 last seizure in 1997 SOB (shortness of breath) on exertion Subchondral insufficiency fracture of condyle of left femur ([facility] ([facility]) Vertigo Vision changes Visual disturbance hx of [...] Medication protocol when under care of a ROUTE CONTRACTOR Planned anesthesia: General Team communication plan: oral ET tube Induction: Induction: intravenous and RSI. Postoperative Plan: No plan for postoperative opioid use. No postoperative mechanical ventilation intended. Patient's planned disposition post procedure is Floor. Informed Consent: Discussed plan with ROUTE CONTRACTOR. Anesthesia plan and risks discussed with patient. Consent and Attending signature: I and/or my designee have discussed the anesthesia plan, benefits, possible alternatives, parental presence at time of induction (if indicated), and clinically relevant risks that may include dental injury, unintentional awareness, and/or other complications. The patient and/or parent/legal guardian understand, and agree to proceed. All questions answered. SHOVEL OPERATOR SHOVEL OPERATOR documented in this encounter Plan of Treatment Upcoming Encounters Date Type Department Care Team (Latest Contact Info) Description 10/23/2024 10:00 AM GAS SHOVEL OPERATOR Hospital Encounter [facility] Operating Room [id number] [place] [address] [place] [address] [address] 10/23/2024 10:00 AM GAS SHOVEL OPERATOR - 10/23/2024 1:00 PM GAS SHOVEL OPERATOR Surgery [facility] Operating Room [address] [place] [address] [place] [address] [address] ARTHROPLASTY TOTAL KNEE LEFT Scheduled Procedures Name Priority Associated Diagnoses Date/Ti me ARTHROPLASTY TOTAL KNEE left knee osteoarthritis 10/23/2024 10:00 AM GAS SHOVEL OPERATOR ESOPHAGOGASTRODUODENOSCOPY Dysphagia, unspecified type documented as of this encounter Procedures Procedure Name Priority Date/Time Associated Diagnosis Comments MT AN PROCEDURE PLACEHOLDER Routine 10/11/2023 11:11 AM GAS SHOVEL OPERATOR MT AN ELECTIVE ENDOTRACHEAL AIRWAY Routine 10/11/2023 11:11 AM GAS SHOVEL OPERATOR documented in this encounter Results * MT AN ELECTIVE ENDOTRACHEAL AIRWAY, MT AN PROCEDURE PLACEHOLDER (10/11/2023 11:11 AM GAS SHOVEL OPERATOR) Narrative Sheryl Bourne CRNA - 10/11/2023 11:11 AM GAS SHOVEL OPERATOR Sheryl Bourne CRNA ? 10/11/2023 11:11 AM Airway Patient location: OR Urgency: elective Indications for airway management: anesthesia Difficult airway: no Staff: Supervising provider: Dioni Askew MD Placed by: ROUTE CONTRACTOR: Sheryl Bourne CRNA Emergent airway documentation: Risks [...] 1112, Anesthesia Intra-op Given 10/11/2023 11:12 AM GAS SHOVEL OPERATOR 4 mg Lactated Ringer's (LR) infusion 100 mL/hr, intravenous, Continuous, Starting on Wed10/11/23 at 0345, For 10 hours Restarted 10/11/2023 10:58 AM GAS SHOVEL OPERATOR New Bag 10/11/2023 4:49 AM GAS SHOVEL OPERATOR 100 mL/hr 100 mL/hr lidocaine (cardiac) (XYLOCAINE) preservative free injection intravenous, As needed, Starting on Wed10/11/23 at 1101, Anesthesia Intra-op, Indications: Ventricular ArrhythmiasIndications:Ventricular Arrhythmias Given 10/11/2023 11:01 AM GAS SHOVEL OPERATOR 3 mL ondansetron (ZOFRAN) injection intravenous, Administer over 2 Minutes, As needed, Starting on Wed10/11/23 at 1118, Anesthesia Intra-op Given 10/11/2023 11:18 AM GAS SHOVEL OPERATOR 4 mg propofoL (DIPRIVAN) 10 mg/mL IV intravenous, As needed, Starting on Wed10/11/23 at 1101, Anesthesia Intra-op New Bag 10/11/2023 11:01 AM GAS SHOVEL OPERATOR 100 mg rocuronium (ZEMURON) injection intravenous, As needed, Starting on Wed10/11/23 at 1112, Anesthesia Intra-op Given 10/11/2023 11:12 AM GAS SHOVEL OPERATOR 30 mg succinylcholine (ANECTINE) injection intravenous, As needed, Starting on Wed10/11/23 at 1101, Anesthesia Intra-op Given 10/11/2023 11:01 AM GAS SHOVEL OPERATOR 100 mg sugammadex (BRIDION) 100 mg/mL intravenous solution intravenous, As needed, Starting on Wed10/11/23 at 1118, Anesthesia Intra-op Given 10/11/2023 11:18 AM GAS SHOVEL OPERATOR 200 mg documented in this encounter Care Teams Coal Feeder Operator Relationship Specialty Start Date End Date Wolfgang Serrano MD PCP - General Family Medicine 05/05/23 08/02/24 Unknown, Notinfile 03/12/22 [place] [id number] [facility] [place] [address] 03/12/22 documented as of this encounter
--- OUTSIDE RECORDS SUMMARY | 2024-10-11 03:03 | XMS_ITS | Encounter Summary ---
Author Organization [facility] Address [address] [place] [address] Phone Care Team Providers Care Print Developer Automatic Name Role Phone Wolfgang Serrano MD Primary Care Provider [phone] Wolfgang Serrano MD Primary Care Provider Wolfgang Serrano MD Unavailable Unknown, Notinfile Unavailable Unavailable Santino Funk MD Unavailable Chuy Enriquez MD Unavailable Luis Felipe Cedillo MD Unavailable Marlene Thornton MD Unavailable Reason for Visit * Reason Onset Date Comments Prior Auth 11/23/2023 Encounter Details Date Type Department Care Team (Late st Contact Info) Description 11/23/2023 Telephone [facility] Dermatology [address] [facility] [address] [place] [address] Byron Woody IV, MD PhD [address] [facility] [address] [place], [place] [id number] Prior Auth Social History Tobacco Use Types [...] materials from doctor or pharmacy Sometimes 03/08/2024 [facility] Utilities Answer Date Recorded In [...] Recorded Patient Health Questionnaire-2 Score 0 01/06/2024 [facility] Occupational Stress Questionnaire Answer Date [...] file Legal 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 Can you confirm you are still not able to get a confirmation for insurance? NDER ROLL OPERATOR * Telephone Encounter - Norma Pelletier - 11/30/2023 7:30 AM CST Images from the original note were not included. The chart shows no active pharmacy coverage. [employer] is active medical coverage but is not pharmacy coverage. NDER ROLL OPERATOR * Telephone Encounter - Elizabet Bowden - 11/29/2023 4:12 PM CST Spoke to patient and he states his insurance is [employer] and he goes through [employer] on file. No mailorder. I ran the insurance on our end and it went through. NDER ROLL OPERATOR * Telephone Encounter - Norma Pelletier - 11/29/2023 3:04 PM CST [employer] is coming back that this patient has no active coverage with [employer]. Does this patient have a new pharmacy benefit? NDER ROLL OPERATOR * Telephone Encounter - Kirsten Hanna - 11/29/2023 9:06 AM CST Pharmacy called wanting update on PA for med Mupirocin NDER ROLL OPERATOR * Telephone Encounter - Elizabet Bowden - 11/23/2023 4:16 PM CST Pa needed on mupirocin (BACTROBAN) 2 % ointment. NDER ROLL OPERATOR documented in this encounter Plan of Treatment Upcoming Encounters Date Type Department Care Team (Latest Contact Info) Description 10/23/2024 10:00 AM CALENDER ROLL OPERATOR Hospital Encounter [facility] Operating Room [address] [place] [address] [place] [address] [address] 10/23/2024 10:00 AM CALENDER ROLL OPERATOR - 10/23/2024 1:00 PM CALENDER ROLL OPERATOR Surgery [facility] Operating Room [address] [place] [address] [place] [address] [address] ARTHROPLASTY TOTAL KNEE LEFT Scheduled Procedures Name Priority Associated Diagnoses Date/Ti me ARTHROPLASTY TOTAL KNEE left knee osteoarthritis 10/23/2024 10:00 AM CALENDER ROLL OPERATOR ESOPHAGOGASTRODUODENOSCOPY Dysphagia, unspecified type documented as of this encounter Visit Diagnoses Not on filedocumented in this encounter Care Teams Print Developer Automatic Relationship Specialty Start Date End Date Wolfgang Serrano MD PCP - General Family Medicine 05/05/23 08/02/24 Wolfgang Serrano MD [address] [address] PCP - General Family Medicine 08/03/24 Wolfgang Serrano MD Family Medicine 08/03/24 Unknown, Notinfile 03/12/22 [place] [address] [place] [address] 03/12/22 Chuy Enriquez MD [address] [place] [address] Consulting Physician Pulmonary Disease 10/13/23 Luis Felipe Cedillo MD [address] [place], [place] [id number] Consulting Physician Gastroenterology 10/13/23 Marlene Thornton MD [address] [place] [address] Surgeon Vascular Surgery 11/10/23 documented as of this encounter
--- OUTSIDE RECORDS SUMMARY | 2024-10-11 03:03 | XMS_ITS | Encounter Summary ---
Author Organization [facility] Address [address] [facility] [address] [place] [address] Care Team Providers Care Mounter Name Role Phone Santino Funk MD Primary Care Provider + Unknown, Notinfile Unavailable Unavailable Santino Funk MD Unavailable [phone] Reason for Visit * Diagnostic Imaging (Routine) - Closed Specialty Diagnoses / Procedures Referred By Contac t Referred To Contact Diagnoses Left shoulder pain, unspecified chronicity Procedures XR Shoulder Left 4 Views Jossie Montal[place] [id number] [place] [address] Phone: tel: fax: [facility] Referral ID Status Reason Start Date Expiration Date Visits Re quested Visits Authorized [id number] Closed 03/23/2023 04/21/2024 1 1 Encounter Details Date Type Department Care Team (Latest Contact Info) Description 03/23/2023 8:37 AM CDT - 03/23/2023 11:59 PM CDT Hospital Encounter [facility] [address] [address] Discharge Disposition: Discharge to home [...] on file 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 [address] [place] [address] ARTHROPLASTY TOTAL KNEE LEFT Scheduled Procedures Name Priority Associated Diagnoses Date/Ti me ARTHROPLASTY TOTAL KNEE left knee osteoarthritis 10/23/2024 10:00 AM BULLDOZER ENGINEER ESOPHAGOGASTRODUODENOSCOPY Dysphagia, unspecified type documented as [...] on filedocumented in this encounter Care Teams Mounter Relationship Specialty [place] [address] [facility] [place] [address] PCP - General Internal Medicine 09/30/22 05/04/23 Unknown, Notinfile 03/12/[address] [place] [address] [facility] [place] [address] 03/12/22 documented as of this encounter
--- OUTSIDE RECORDS SUMMARY | 2024-10-11 03:03 | XMS_ITS | Encounter Summary ---
Author Organization [facility] Healthcare Address [address] [place] [address] Care Team Providers Care Tourist Information Assistant Name Role Phone Wolfgang Serrano MD Primary Care Provider Unknown, Notinfile Unavailable Unavailable Santino Funk MD Unavailable [phone] Encounter Details Date Type Department Care Team (Latest Contact Info) Description 10/10/2023 11:17 AM ACTUARIAL CONSULTANT - 10/10/2023 11:59 PM [facility] Hospital Encounter [facility] [address] [place] [address] Discharge Disposition: Discharge to home or self [...] in a jail (including now)? No 11/25/2021 Personal Safety Answer Date Recorded Getting School Help Needed Denies 10/10 Sex and Gender Information Value Date Recorded Sex Assigned at Not on file Legal Sex Male 3:25 PM ACTUARIAL CONSULTANT Gender Identity Not on file Sexual [...] (Latest Contact Info) Description 10/23/2024 10:00 AM ACTUARIAL CONSULTANT Hospital Encounter [facility] Operating Room [address] [place] [address] [place] [address] [facility] [address] [place] [address] 10/23/2024 10:00 AM ACTUARIAL CONSULTANT - 10/23/2024 1:00 PM ACTUARIAL CONSULTANT Surgery [facility] Operating Room [address] [place] [address] [place] [address] [facility] [address] [place] [address] ARTHROPLASTY TOTAL KNEE LEFT Scheduled Procedures Name Priority Associated Diagnoses Date/Ti me ARTHROPLASTY TOTAL KNEE left knee osteoarthritis 10/23/2024 10:00 AM ACTUARIAL CONSULTANT ESOPHAGOGASTRODUODENOSCOPY Dysphagia, unspecified type documented as of this encounter Procedures Procedure Name Priority Date/Time Associated Diagnosis Comments CT BODY OUTSIDE REFERENCE Routine 10/10/2023 11:17 AM ACTUARIAL CONSULTANT documented in this encounter Results * CT Body Outside Reference (10/10/2023 11:17 AM ACTUARIAL CONSULTANT) Impressions [facility] - 10/10/2023 11:17 AM ACTUARIAL CONSULTANT These images are for Reference purposes only and have not been reviewed by [facility] Radiology. ??There will be no report generated by a [facility] Radiologist. Narrative [facility]_PACS[facility] - 10/10/2023 11:17 AM ACTUARIAL CONSULTANT EXAMINATION: ??Images For Reference Purposes Only us Marlene Thornton MD IMG CT PROCEDURES Final R esult [facility] documented in this encounter Visit Diagnoses Not on filedocumented in this encounter Care Teams Tourist Information Assistant Relationship Specialty Start Date End Date Wolfgang Serrano MD PCP - General Family Medicine 05/05/23 08/02/24 Unknown, Notinfile 03/12/22 [place] [address] [facility] [address] [place] [address] 03/12/22 documented as of this encounter
--- OUTSIDE RECORDS SUMMARY | 2024-10-11 03:03 | XMS_ITS | Encounter Summary ---
Author Organization [facility] Healthcare Address [address] [place] [address] Care Team Providers Care Stranding Machine Operator Name Role Phone Wolfgang Serrano [...] Expiration Date Visits Re quested Visits Authorized [id number] 1 1 Encounter Details Date Type Department Care Team (Late st Contact Info) Description 12/07/2023 12:52 PM FINANCIAL REPORTING ANALYST - 12/15/2023 2:10 PM FINANCIAL REPORTING ANALYST Hospital Encounter [facility] [address] [place] [address] Severino Mejía, DO [address] [place] [address] [place] [address] Maxi Carrion MD [address] [place] [address] [place] [address] [facility] [address] [place], [place] [id number] [place] [address] [facility] [address] [place], [place] [id number] Acute CVA (cerebrovascular accident) (HCC) (Primary Dx) Discharge Disposition: Discharge to an Rehab facility Social History Tobacco Use Types Packs/Day Years Used Date Smoking Tobacco: Former Cigarettes 1 1966 Smokeless Tobacco: Never Tobacco Cessation:Counseling Given: No Alcohol Use Standard Drinks/Week Comments Yes 1 (1 standard drink = 0.6 oz pur e alcohol) [facility] Utilities Answer Date Recorded In the past 12 months has [email or web address] electric, gas, oil, or water [employer] threatened to shut off services in your [...] any clubs o r organizations such as muslim groups, unions, fraternal or athletic groups, or [...] Date Recorded PHQ-2 Total Score 0 12/16/2023 [facility] - [...] on file Legal Sex Male 3:25 PM FINANCIAL REPORTING ANALYST Gender Identity Not on file Sexual Orientation Not on file documented as of this encounter Last Filed Vital Signs Vital Sign Reading Time Taken Comments Blood Pressure 129/81 12/15/2023 12:00 PM FINANCIAL REPORTING ANALYST Pulse 69 12/15/2023 12:01 PM FINANCIAL REPORTING ANALYST Temperature 36.8 ??C (98.2 ??F) 12/15/2023 12:[address] Respiratory Rate 16 12/15/2023 12:00 PM FINANCIAL REPORTING ANALYST Oxygen Saturation 97% 12/15/2023 12:00 PM FINANCIAL REPORTING ANALYST Inhaled Oxygen Concentration - - Weight 103.4 kg (228 lb) 12/14/2023 1:42 PM FINANCIAL REPORTING ANALYST Height 180.3 cm (5' 11 ) 12/14/2023 1:42 PM FINANCIAL REPORTING ANALYST Body Mass Index 31.8 12/14/2023 1:42 PM FINANCIAL REPORTING ANALYST documented in this encounter Discharge Summaries * Sharmin Vera, NETWORK FIREWALL ENGINEER - 12/15/2023 2:10 PM CST Physician Discharge Summary Patient ID: Gunjan Gtz Jr. [id number] 78 y.o. 1945 Admit date: 12/07/2023 Discharge [...] the ED via EMS from the parking [facility] on , complaining of sudden onset of [...] and small-vessel disease. No hemorrhagic changes identified. -PT/OT/TOOL HONING MACHINE SET UP OPERATOR -Change diet to mechanical soft on 12/10, [...] foods,deli meats, sausage, gutierrez, and gravies/sauces. Call [phone] to speak with a dietitian about any diet related concerns. Recommend to follow up with outpatient nutrition counseling, ask your doctor for a referral and call [phone] to make an appointment. Discharge Meds: Your [...] term rehab OUTPATIENT FOLLOW-UP: Wolfgang Serrano MD [address] [address] Time spent on discharge: 75 min Signed: Sharmin Vera NP 12/21/2023 2:42 PM Cosigned by Carlos Chaves MD at 12/28/2023 2:37 PM CDT documented in this encounter Discharge Instructions * Discharge Instr - Diet* Trini Justin RD - 12/08/2023 1:37 PM FINANCIAL REPORTING ANALYST Recommend to eat a generally healthy diet that includes a variety of fruits, vegetables, whole-grain breads, low-fat dairy products, beans, lean meats, and fish. Avoid saturated and trans fats and limit sodium to less than 2,300 mg per day. Avoid foods like desserts, fast food, fried/breaded foods,deli meats, sausage, gutierrez, and gravies/sauces. Call [phone] to speak with a dietitian about any diet related concerns. Recommend to follow up with outpatient nutrition counseling, ask your doctor for a referral and call [phone] to make an appointment. NCIAL REPORTING ANALYST * Attachments The following attachments cannot be sent through Care Everywhere. * Stroke (Manufacturing Quality Engineer) (Paraguayan) * Stroke (General Information) (Paraguayan) documented in this encounter Medications at Time [...] this encounter Progress Notes * Paresh Prieto, TOOL HONING MACHINE SET UP OPERATOR - 12/15/2023 9:31 AM CST SPEECH LANGUAGE PATHOLOGY PROGRESS NOTE Patient's Name: Gunjan Gtz Jr. : 1945 Age: 78 y.o. Time In: 9:10 Time Out: 9:34 Patient Active Problem List Diagnosis Primary osteoarthritis of both knees Subchondral insufficiency fracture of condyle of left femur (CMS/HCC) ([facility]) Closed fracture of left tibial [...] (HCC) Iron deficiency anemia Peripheral vascular disease ([facility]) Pain due to total right [...] Infrarenal abdominal aortic aneurysm (AAA) without rupture ([facility]) Acute CVA (cerebrovascular accident) ([facility]) Past Medical History: Diagnosis Date Acute gastric [...] insufficiency fracture of condyle of left femur (CMS/[facility]) ([facility]) [...] PRECAUTIONS: Fall, Seizure SWALLOWING: Swallow assessed by TOOL HONING MACHINE SET UP OPERATOR. Regular consistency diet/thin liquids recommended. Patient's reports patient having difficulty with food getting stuck on left side of mouth. NETWORK FIREWALL ENGINEER changed dietto mechanical soft/thin liquids. Patient with [...] last note, consider this the discharge summary. NCIAL REPORTING ANALYST * Paresh Prieto, TOOL HONING MACHINE SET UP OPERATOR - 12/14/2023 3:13 PM CST SPEECH LANGUAGE PATHOLOGY PROGRESS NOTE Patient's Name: Gunjan Gtz Jr. : 1945 Age: 78 y.o. Time In: 14:55 Time Out: 15:10 Patient Active Problem List Diagnosis Primary osteoarthritis of both knees Subchondral insufficiency fracture of condyle of left femur (CMS/[facility]) ([facility]) Closed fracture of left tibial [...] Skin lesion of breast Edema Intermittent claudication ([facility]) Iron deficiency anemia Peripheral vascular disease ([facility]) Pain due to total right knee replacement (CMS/HCC) ([facility]) Hamstring tendinitis of right thigh Quadriceps weakness Idiopathic peripheral neuropathy Abnormality of gait and mobility Hx of total knee replacement, right Neuropathy ([facility]) 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 Biceps tendinitis of left upper extremity Tear of left glenoid labrum Coffee ground emesis Upper GI bleed Acquired hypothyroidism Acute blood loss anemia Lung nodule Nocturnal cough Hiatal hernia Infrarenal abdominal aortic aneurysm (AAA) without rupture ([facility]) Acute CVA (cerebrovascular accident) ([facility]) Past Medical History: Diagnosis Date Acute gastric [...] with delayed healing, subsequent encounter Clotting disorder ([facility]) ([facility]) [...] PRECAUTIONS: Fall, Seizure SWALLOWING: Swallow assessed by TOOL HONING MACHINE SET UP OPERATOR. Regular consistency diet/thin liquids recommended. Patient's reports patient having difficulty with food getting stuck on left side of mouth. NETWORK FIREWALL ENGINEER changed dietto mechanical soft/thin liquids. Patient with [...] last note, consider this the discharge summary. NCIAL REPORTING ANALYST * Zheng Veras, JAE - 12/14/2023 11:45 [...] 0.9% Sodium Chloride 30 mL intravenous PRN Bernard Casillas MD dextrose oral liquid liquid 15 g 15 g oral Q15 Min PRN Bernard Casillas MD Or dextrose (D10W) 10% bolus 250 mL 250 mL intravenous Q15 Min PRN Bernard Casillas MD docusate sodium (COLACE) capsule 100 mg 100 mg oral BID Zheng Veras, NETWORK FIREWALL ENGINEER 100 mg at 12/14/23 0816 donepeziL (ARICEPT) [...] and small-vessel disease. No hemorrhagic changes identified. -PT/OT/TOOL HONING MACHINE SET UP OPERATOR -Change diet to mechanical soft on 12/10, [...] medical issues. Disposition: Plan to discharge to [facility] status post bowel movement and if FOB negative. CONSULTS COAL YARD SUPERVISOR CONSULT IP CONSULT TO NUTRITION SERVICES IP CONSULT TO NEUROLOGY IP CONSULT TO SOCIAL WORK IP CONSULT TO SOCIAL WORK IP CONSULT TO SOCIAL WORK Zheng Veras NP [facility] Hospitalist 12/14/2023 11:46 AM NCIAL REPORTING ANALYST * Kenyatta Hummel PTA - 12/14/2023 9:56 AM CST Physical Therapy PT PROGRESS NOTE PATIENT'S NAME:Gunjan Gtz Jr. :1945 AGE:78 y.o. ROOM:[place] [address] Past Medical History: Diagnosis Date Acute gastric [...] Skin lesion of breast Edema Intermittent claudication ([facility]) Iron deficiency anemia Peripheral vascular disease ([facility]) Pain due to total right knee replacement (CMS/HCC) ([facility]) Hamstring tendinitis of right thigh [...] Infrarenal abdominal aortic aneurysm (AAA) without rupture ([facility]) Acute CVA (cerebrovascular accident) ([facility]) TIME IN: 955 TIME OUT: 1053 SUBJECTIVE [...] Torri Lopez, PT at 12/14/2023 2:34 PM FINANCIAL REPORTING ANALYST NCIAL REPORTING ANALYST NCIAL REPORTING ANALYST * Kay Isidro COTA - 12/14/2023 9:47 AM CST Occupational Therapy NOTE / SESSION TYPE: DAILY PROGRESS / TREATMENT Patient's Name: Gunjan Gtz Jr. Age / Sex: 78 y.o. / male Room: [place] [address] : 1945 Date of service: 12/14/23 TIME [...] due to total right knee replacement (CMS/HCC) ([facility]) Hamstring tendinitis of right thigh [...] Infrarenal abdominal aortic aneurysm (AAA) without rupture ([facility]) Acute CVA (cerebrovascular accident) ([facility]) Past Medical History: Diagnosis Date Acute gastric [...] with delayed healing, subsequent encounter Clotting disorder ([facility]) ([facility]) [...] session: Yes Completed patient handoff and notified ORCHESTRATOR / RN, name: Neeraj, of patient's location [...] Laquita Mukherjee OT at 12/14/2023 10:52 AM FINANCIAL REPORTING ANALYST NCIAL REPORTING ANALYST NCIAL REPORTING ANALYST * Veras Austineunice Stockton, NETWORK FIREWALL ENGINEER - 12/13/2023 4:00 PM CST Hospitalist Progress [...] 81 mg 81 mg oral Daily Zheng Veras, NETWORK FIREWALL ENGINEER 81 mg at 12/13/23 1036 Carrier Fluids [...] and small-vessel disease. No hemorrhagic changes identified. -PT/OT/TOOL HONING MACHINE SET UP OPERATOR -Change diet to mechanical soft on 12/10, [...] management for the above medical issues. CONSULTS COAL YARD SUPERVISOR CONSULT IP CONSULT TO NUTRITION SERVICES IP CONSULT TO NEUROLOGY IP CONSULT TO SOCIAL WORK IP CONSULT TO SOCIAL WORK IP CONSULT TO SOCIAL WORK Zheng Veras NP [facility] Hospitalist 12/13/2023 4:00 PM NCIAL REPORTING ANALYST * Lianet Mckinney NP - 12/13/2023 1:50 [...] to move his left shoulder but cannot inspector and tester with his left hand or raise the [...] 150 mcg oral Daily - 0600 Bernard Caslilas MD 150 mcg at12/13/23 0620 ofloxacin (OCUFLOX) [...] oriented to person, place, and time. Coordination: Tzhume-Gikp-Trpuel Test abnormal. Psychiatric: Mood and Affect: Mood [...] Mahajan II, MD at 12/14/2023 8:56 AM FINANCIAL REPORTING ANALYST NCIAL REPORTING ANALYST NCIAL REPORTING ANALYST * Paresh Prieto SLP - 12/13/2023 1:26 [...] Skin lesion of breast Edema Intermittent claudication ([facility]) Iron deficiency anemia Peripheral vascular disease ([facility]) Pain due to total right knee replacement (CMS/HCC) ([facility]) Hamstring tendinitis of right thigh Quadriceps weakness Idiopathic peripheral neuropathy Abnormality of gait and mobility Hx of total knee replacement, right Neuropathy (CMS/[facility]) 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 Biceps tendinitis of left upper extremity Tear of left glenoid labrum Coffee ground emesis Upper GI bleed Acquired hypothyroidism Acute blood loss anemia Lung nodule Nocturnal cough Hiatal hernia Infrarenal abdominal aortic aneurysm (AAA) without rupture ([facility]) Acute CVA (cerebrovascular accident) ([facility]) Past Medical History: Diagnosis Date Acute gastric [...] with delayed healing, subsequent encounter Clotting disorder ([facility]) ([facility]) [...] insufficiency fracture of condyle of left femur ([facility]) ([facility]) [...] PRECAUTIONS: Fall, Seizure SWALLOWING: Swallow assessed by TOOL HONING MACHINE SET UP OPERATOR. Regular consistency diet/thin liquids recommended. Patient's reports patient having difficulty with food getting stuck on left side of mouth. NETWORK FIREWALL ENGINEER changed dietto mechanical soft/thin liquids. COGNITION: Cognitive [...] last note, consider this the discharge summary. NCIAL REPORTING ANALYST * Heron Amos - 12/13/2023 11:06 AM [...] 1.22 1.14 1.04 1.12 < > 1.39* WVW-ZRY-MLAIWRT mL/min/1.73 m2 60 65 73 67 < [...] 2213.75 Equation Chosen to Use by RD: [facility] Brendenal Activity Factor: 1.25 Weight Used for Equation [...] Protein - Vanilla WithBreakfast and Dinner Question: (CH) Select Supplement: Answer: Ensure High Protein - Vanilla 12/13/23 1120 12/11/23 1320 Adult Diet Modified Consistency; Mechanical Soft; Low Fat, Low Chol, Low Na Diet effective now Question Answer Comment (CH) Diet type Modified Consistency Modified Consistency: Mechanical [...] depth pinch but not ample Muscle Loss Religion Region - Temporalis Muscle: Slight depression Clavicle [...] foods,deli meats, sausage, gutierrez, and gravies/sauces. Call [phone] to speak with a dietitian about any diet related concerns. Recommend to follow up with outpatient nutrition counseling, ask your doctor for a referral and call [phone] to make an appointment. Nutrition Follow-Up : 12/20/23 Heron Amos MS, RD, LD NCIAL REPORTING ANALYST NCIAL REPORTING ANALYST * Wednesday, ANGI Fuller - 12/13/2023 10:12 AM CST Occupational Therapy NOTE / SESSION TYPE: DAILY PROGRESS / TREATMENT Patient's Name: Gunjan Gtz Jr. Age / Sex: 78 y.o. / male Room: [place] [address] : 1945 Date of service: 12/13/23 TIME [...] session: Yes Completed patient handoff and notified ORCHESTRATOR / RN, name: Amie , of patient's [...] seated at bed side recliner with use print graphic designer requiring mod assist for management over right [...] last note, consider this the discharge summary Alina WednesdayANGI 12/13/23 NCIAL REPORTING ANALYST NCIAL REPORTING ANALYST NCIAL REPORTING ANALYST NCIAL REPORTING ANALYST * Tyrel Vasquez, MARQUEZ - 12/13/2023 9:06 AM CST Physical Therapy PT PROGRESS NOTE PATIENT'S NAME:Gunjan Gtz Jr. :1945 AGE:78 y.o. ROOM:[place] [address] Past Medical History: Diagnosis Date Acute gastric [...] Infrarenal abdominal aortic aneurysm (AAA) without rupture ([facility]) Acute CVA (cerebrovascular accident) ([facility]) TIME IN: 910 TIME OUT: 955 SUBJECTIVE [...] Torri Lopez, PT at 12/13/2023 2:57 PM FINANCIAL REPORTING ANALYST NCIAL REPORTING ANALYST NCIAL REPORTING ANALYST * Zheng Veras, NETWORK FIREWALL ENGINEER - 12/12/2023 1:56 PM CST Hospitalist Progress [...] - s/p TNK, post thrombolytic care on 2/27/24 with neuro checks -Aspirin on hold. Rosuvastatin. - TTE with bubble study showed no evidence of right to left shunt. - MRI brain 12/08/23 showing acute infarct posterior limb internal capsule right side. Underlying atrophy and small-vessel disease. No hemorrhagic changes identified. -PT/OT/TOOL HONING MACHINE SET UP OPERATOR -Change diet to mechanical soft on 12/10 [...] management for the above medical issues. CONSULTS COAL YARD SUPERVISOR CONSULT IP CONSULT TO NUTRITION SERVICES IP CONSULT TO NEUROLOGY IP CONSULT TO SOCIAL WORK IP CONSULT TO SOCIAL WORK Zheng Veras NP [facility] Hospitalist 12/12/2023 1:57 PM NCIAL REPORTING ANALYST NCIAL REPORTING ANALYST * Tyrel Vasquez, TRUCK HOPPER - 12/11/2023 3:00 PM CST Physical Therapy PT PROGRESS NOTE PATIENT'S NAME:Gunjan Gtz Jr. :1945 AGE:78 y.o. ROOM:[place] [address] Past Medical History: Diagnosis Date Acute gastric [...] left femur (CMS/HCC) ([facility]) Closed fracture of left tibial [...] Skin lesion of breast Edema Intermittent claudication ([facility]) Iron deficiency anemia Peripheral vascular disease ([facility]) Pain due to total right knee replacement (CMS/HCC) ([facility]) Hamstring tendinitis of right thigh Quadriceps weakness Idiopathic peripheral neuropathy Abnormality of gait and mobility Hx of total knee replacement, right Neuropathy (CMS/[facility]) 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 Biceps tendinitis of left upper extremity Tear of left glenoid labrum Coffee ground emesis Upper GI bleed Acquired hypothyroidism Acute blood loss anemia Lung nodule Nocturnal cough Hiatal hernia Infrarenal abdominal aortic aneurysm (AAA) without rupture ([facility]) Acute CVA (cerebrovascular accident) ([facility]) TIME IN: 1500 TIME OUT: 1543 SUBJECTIVE [...] Ryann Escobedo PT at 12/16/2023 8:14 AM FINANCIAL REPORTING ANALYST NCIAL REPORTING ANALYST NCIAL REPORTING ANALYST * Zheng Veras NP - 12/11/2023 12:56 [...] Reports he had MRs before without issue. /: Patient awake and alert, sitting in chair. [...] tablet 2 mg 2 mg oral TID Dioni Franco MD 2 mg at 12/08/23 1019 acetaminophen [...] and small-vessel disease. No hemorrhagic changes identified. -PT/OT/TOOL HONING MACHINE SET UP OPERATOR -Change diet to mechanical soft on 12/10 [...] management for the above medical issues. CONSULTS COAL YARD SUPERVISOR CONSULT IP CONSULT TO NUTRITION SERVICES IP CONSULT TO NEUROLOGY IP CONSULT TO SOCIAL WORK IP CONSULT TO SOCIAL WORK Zheng Veras NP [facility] Hospitalist 12/11/2023 12:57 PM NCIAL REPORTING ANALYST * Kenyatta Hummel, TRUCK HOPPER - 12/10/2023 2:11 PM CST Physical Therapy PT PROGRESS NOTE PATIENT'S NAME:Gunjan Gtz Jr. :1945 AGE:78 y.o. ROOM[id number] Past Medical History: Diagnosis Date Acute gastric [...] without rupture (HCC) Acute CVA (cerebrovascular accident) ([facility]) TIME IN: 1411 TIME OUT: 1454 SUBJECTIVE [...] Torri Lopez, PT at 12/11/2023 3:34 PM FINANCIAL REPORTING ANALYST NCIAL REPORTING ANALYST NCIAL REPORTING ANALYST * Paresh Prieto, TOOL HONING MACHINE SET UP OPERATOR - 12/10/2023 1:43 PM CST SPEECH LANGUAGE PATHOLOGY PROGRESS NOTE Patient's Name: Gunjan Gtz Jr. : 1945 Age: 78 y.o. Time In: 13:20 Time Out: 13:43 Patient Active Problem List Diagnosis Primary osteoarthritis of both knees Subchondral insufficiency fracture of condyle of left femur (CMS/HCC) ([facility]) Closed fracture of left tibial [...] Skin lesion of breast Edema Intermittent claudication ([facility]) Iron deficiency anemia Peripheral vascular disease ([facility]) Pain due to total right knee replacement (CMS/HCC) ([facility]) Hamstring tendinitis of right thigh [...] Infrarenal abdominal aortic aneurysm (AAA) without rupture ([facility]) Acute CVA (cerebrovascular accident) ([facility]) Past Medical History: Diagnosis Date Acute gastric [...] Fall, Seizure SWALLOWING: Swallow not assessed by TOOL HONING MACHINE SET UP OPERATOR. Patient passed nursing dysphagia screener on admission. [...] last note, consider this the discharge summary. NCIAL REPORTING ANALYST * Lianet Mckinney NP - 12/10/2023 11:30 [...] to move his left shoulder but cannot inspector and tester with his left hand or raise the [...] oriented to person, place, and time. Coordination: Xpkgbb-Cwus-Osgjtk Test abnormal. Psychiatric: Mood and Affect: Mood [...] Mahajan II, MD at 12/10/2023 3:26 PM FINANCIAL REPORTING ANALYST NCIAL REPORTING ANALYST NCIAL REPORTING ANALYST * Carlos Chaves MD - 12/10/2023 11:19 [...] Infusions: LAB REVIEW Recent Labs Lab Units [id number] WBC K/cumm 7.3 8.6 7.9 HEMOGLOBIN g/dL [...] Rate: 53 bpm RR Interval: 1114 msec IL Interval: 183 msec QRS Duration: 84 msec QT Interval: 420 msec QTC Interval: 404 msec P-R-T Alexander: 40 - -10 - 21 degrees IMPRESSION: [...] and small-vessel disease. No hemorrhagic changes identified. -PT/OT/TOOL HONING MACHINE SET UP OPERATOR HTN, POA - Under control -prn Hydralazine [...] home percocet VTE Prophylaxis with enoxaparin CONSULTS COAL YARD SUPERVISOR CONSULT IP CONSULT TO NUTRITION SERVICES IP CONSULT TO NEUROLOGY IP CONSULT TO SOCIAL WORK IP CONSULT TO SOCIAL WORK Full Code [facility] Pager #: [phone] Voice recognition software [employer]esim Direct was used dictate and transcribe this document. Framing Mill Supervisor variances may occur. Despite proofreading, typographical errors may occur. NCIAL REPORTING ANALYST * Jessica Mendez - 12/10/2023 7:54 AM CST Occupational Therapy NOTE / SESSION TYPE: Re-evaluation Patient Name: Gunjan Gtz Jr. Date of : 1945 Age / Sex: 78 y.o. / male Room: [id number] Admit Date: 12/07/2023 Date of Service: [...] with delayed healing, subsequent encounter Clotting disorder ([facility]) ([facility]) [...] insufficiency fracture of condyle of left femur ([facility]) ([facility]) [...] other social supports available: Supportive who works registered phlebotomist part time; supportive daughter Living environment (Type of residence / Entrance accessibility): One story house with 1-2 steps to enter without handrails. Basement that patient does access. 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 Hand Dominance: Right Permastone Installer Strength (Right) good Permastone Installer Strength (Left): no activation/flaccid Right Serial Opposition: Decreased rate Left Serial Opposition: Other: no activation RUE on right side of midline Vudghl-Exoe-Qunvnd: Intact RUE on left side of midline Wbhhti-Svac-Llniec: Decreased accuracy with correction after one attempt [...] (from Occupational Therapy) Active Problems Problem: OT [facility] Start Date: 12/08/23 Goal Start Date Expected End Date End Date OT [facility] 1 12/08/23 12/15/23 -- Goal Details: Patient will complete HEP of left UE AROM and self-ROM exercises including digits with initial verbal cues one time to increase tolerance for ADLs Goal Start Date Expected End Date End Date OT [facility] 2 12/08/23 12/15/23 -- Goal Details: Patient will complete HEP of scapular mobilization with initial verbal cues one time Goal Start Date Expected End Date End Date OT [facility] 3 12/08/23 12/15/23 -- Goal Details: Patient will complete bathing with mod assist one time Goal Start Date Expected End Date End Date OT [facility] 4 12/08/23 12/15/23 -- Goal Details: Patient will complete UE dressing with min assist one time Goal Start Date Expected End Date End Date OT [facility] 5 12/08/23 12/15/23 -- Goal Details: Patient will complete LE dressing of underwear and socks with mod assist one time Goal Start Date Expected End Date End Date OT [facility] 6 12/08/23 12/15/23 -- Goal Details: Patient will complete toilet transfer with min assist one time Goal Start Date Expected End Date End Date OT [facility] 7 12/08/23 12/15/23 -- Goal Details: Patient will complete a functional activity while sitting on EOB with good- balance x4-5 minutes to improve endurance and tolerance for ADLs one time Goal Start Date Expected End Date End Date OT [facility] 8 12/08/23 12/15/23 -- Goal Details: Patient will complete visual scanning activity in left upper and lower quadrants withinitial verbal cues to address visual deficit one time If this is the last note, consider this the discharge summary Jessica Mendez 12/10/23 Cosigned by Jason Martinez, OT at 12/10/2023 4:04 PM FINANCIAL REPORTING ANALYST NCIAL REPORTING ANALYST NCIAL REPORTING ANALYST * Castalia, Kenyatta, TRUCK HOPPER - 12/09/2023 2:28 PM CST Physical Therapy PT PROGRESS NOTE PATIENT'S NAME:Gunjan Gtz Jr. :1945 AGE:78 y.o. ROOM:[facility] [address] Past Medical History: Diagnosis Date Acute gastric [...] left femur (CMS/HCC) ([facility]) Closed fracture of left tibial [...] without rupture (HCC) Acute CVA (cerebrovascular accident) ([facility]) TIME IN: 1429 TIME OUT: 1520 SUBJECTIVE [...] this the discharge summary. Cosigned by Torri Lopez PT at 12/10/2023 8:57 AM FINANCIAL REPORTING ANALYST NCIAL REPORTING ANALYST NCIAL REPORTING ANALYST * Paresh Prieto TOOL HONING MACHINE SET UP OPERATOR - 12/09/2023 2:19 PM CST SPEECH LANGUAGE PATHOLOGY PROGRESS NOTE Patient's Name: Gunjan Gtz Jr. : 1945 Age: 78 y.o. Time In: 13:51 Time Out: 14:15 Patient Active Problem List Diagnosis Primary osteoarthritis of both knees Subchondral insufficiency fracture of condyle of left femur (CMS/HCC) ([facility]) Closed fracture of left tibial [...] Skin lesion of breast Edema Intermittent claudication ([facility]) Iron deficiency anemia Peripheral vascular disease ([facility]) Pain due to total right knee replacement (CMS/HCC) ([facility]) Hamstring tendinitis of right thigh [...] Infrarenal abdominal aortic aneurysm (AAA) without rupture ([facility]) Acute CVA (cerebrovascular accident) ([facility]) Past Medical History: Diagnosis Date Acute gastric [...] Fall, Seizure SWALLOWING: Swallow not assessed by TOOL HONING MACHINE SET UP OPERATOR. Patient passed nursing dysphagia screener on admission. [...] last note, consider this the discharge summary. NCIAL REPORTING ANALYST NCIAL REPORTING ANALYST * Lianet Mckinney NP - 12/09/2023 12:10 PM CST Neurology Daily [...] to move his left shoulder but cannot inspector and tester with his left hand or raise the [...] Daily Gaby Doyle MD 81 mg at 12/09/23912 Carrier Fluids for Secondary Infusion - 0.9% [...] TID Bernard Casillas MD 300 mg at 12/09/23912 glucagon injection 1 mg 1 mg intramuscular Q30 Min PRN Gaby Doyle MD hydrALAZINE (APRESOLINE) injection 10 mg 10 mg intravenous Q15 Min PRN Gaby Doyle MD levothyroxine (SYNTHROID) tablet 150 mcg 150 mcg oral Daily - 0600 Bernard Casillas MD 150 mcg at12/09/[address] (PROTONIX) extended release tablet [...] oriented to person, place, and time. Coordination: Pferdm-Jbqu-Jpvzeq Test abnormal. Psychiatric: Mood and Affect: Mood [...] Mahajan II, MD at 12/09/2023 4:16 PM FINANCIAL REPORTING ANALYST NCIAL REPORTING ANALYST NCIAL REPORTING ANALYST NCIAL REPORTING ANALYST * Aminta Vera NP - 12/09/2023 11:33 [...] images demonstrate normal flow voids within the napaimute of [place]. The brainstem and cerebellar hemispheres [...] Complete W Doppler/CF Result Date: 12/08/2023 Narrative: [place] [address] Echocardiogram Report Patient Name: GUNJAN GTZ : 1945 Study Date: 12/08/2023 12:52:29 PM Gender: M Tech: BE Location: [place] [address] Ref Provider: MAXI CARRION Height(Cm): 180 BSA: [...] DO Marlena, BO, ALEXANDRA, SONIDO 2023-12-08 13:58:45 FINANCIAL REPORTING ANALYST CC: CC: CC: CT Head WO Contrast [...] Rate: 72 bpm RR Interval: 826 msec IL Interval: 183 msec QRS Duration: 88 msec QT Interval: 384 msec QTC Interval: 408 msec P-R-T Alexander: 54 - -7 - 31 degrees IMPRESSION: SINUS RHYTHM WITH OCCASIONAL VENTRICULAR PREMATURE COMPLEXES BORDERLINE ECG NO CHANGE FROM PREVIOUS TRACING NOTED Electronically Signed By: Jasen Tran MD ECG 12 lead Result Date: 12/08/2023 Narrative: Vent Rate: 53 bpm RR Interval: 1114 msec IL Interval: 183 msec QRS Duration: 84 msec QT Interval: 420 msec QTC Interval: 404 msec P-R-T Alexander: 40 - -10 - 21 degrees IMPRESSION: [...] separate workstation for processing by RAPID software ([employer]) to produce automated calculations of the estimated [...] Basilar Artery: no occlusionor significant stenosis L ADVERTISING SALES REPRESENTATIVE: no occlusion or significant stenosis R ADVERTISING SALES REPRESENTATIVE: no occlusion or significant stenosis Venous sinuses [...] identified. - CTH 24 hours post TNK -PT/OT/TOOL HONING MACHINE SET UP OPERATOR HTN, POA - permissive HTN, -prn Hydralazine [...] ramelteon prn VTE and GI Prophylaxis CONSULTS COAL YARD SUPERVISOR CONSULT IP CONSULT TO NUTRITION SERVICES IP CONSULT TO NEUROLOGY IP CONSULT TO SOCIAL WORK IP CONSULT TO SOCIAL WORK Full Code NORM Monique- [facility] Pager #: [phone] Voice recognition software [employer] Direct was used dictate and transcribe this document. Framing Mill Supervisor variances may occur. Despite proofreading, typographical errors may occur. NCIAL REPORTING ANALYST * Paresh Prieto SLP - 12/09/2023 11:15 AM CST Speech Language/Pathology No speech therapy services provided. Patient currently working with OT. Plan to re-attempt later this afternoon. MONA Jennings 12/09/23 11:15 AM NCIAL REPORTING ANALYST * Kay Isidro COTA - 12/09/2023 11:00 AM CST Occupational Therapy NOTE / SESSION TYPE: DAILY PROGRESS / TREATMENT Patient's Name: Gunjan Gtz Jr. Age / Sex: 78 y.o. / male Room: [place] [address] : 1945 Date of service: 12/09/23 TIME IN: 1100 TIME OUT: 1210 Patient Active Problem List Diagnosis Primary osteoarthritis of both knees Subchondral insufficiency fracture of condyle of left femur (CMS/HCC) ([facility]) Closed fracture of left tibial [...] Skin lesion of breast Edema Intermittent claudication ([facility]) Iron deficiency anemia Peripheral vascular disease ([facility]) Pain due to total right knee replacement ([facility]/HCC) ([facility]) Hamstring tendinitis of right thigh Quadriceps weakness Idiopathic peripheral neuropathy Abnormality of gait and mobility Hx of total knee replacement, right Neuropathy (CMS/[facility]) 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 Biceps tendinitis of left upper extremity Tear of left glenoid labrum Coffee ground emesis Upper GI bleed Acquired hypothyroidism Acute blood loss anemia Lung nodule Nocturnal cough Hiatal hernia Infrarenal abdominal aortic aneurysm (AAA) without rupture ([facility]) Acute CVA (cerebrovascular accident) ([facility]) Past Medical History: Diagnosis Date Acute gastric [...] with delayed healing, subsequent encounter Clotting disorder ([facility]) ([facility]) [...] insufficiency fracture of condyle of left femur ([facility]) ([facility]) [...] keep eyes closed) Spoke with Lianet, neuro NETWORK FIREWALL ENGINEER, Sarah, MARAH and Poly, evaluating OTR. Pt appears to [...] session: Yes Completed patient handoff and notified ORCHESTRATOR / RN, name: Sarah, of patient's location [...] multiple NUMBER OF SETS: multiple ASSIST LEVEL: [id number] LOCATION OF COMPLETION: seated in wc TOLERANCE: [...] Rosalia Marinelli OT at 12/09/2023 3:43 PM FINANCIAL REPORTING ANALYST NCIAL REPORTING ANALYST NCIAL REPORTING ANALYST * Gaby Doyle MD - 12/08/2023 4:19 [...] Dioni Orosco MD at 12/09/2023 6:04 PM FINANCIAL REPORTING ANALYST NCIAL REPORTING ANALYST NCIAL REPORTING ANALYST * Trini Justin RD - 12/08/2023 1:40 [...] 0.9%, 30 mL/hr, Last Rate: 30 mL/hr () PRN Meds: acetaminophen OR acetaminophen OR acetaminophen albuterol HFA sodium chloride 0.9% dextrose OR dextrose glucagon hydrALAZINE OR [DISCONTINUED] labetalol ramelteon sodium chloride 0.9% tiZANidine Recent Labs Lab Units 12/07/23 2045 SODIUM mmol/L 137 POTASSIUM PLASMA mmol/L 4.1 CHLORIDE mmol/L 103 CO2 mmol/L 27 BUN SERUM mg/dL 16 CREATININE mg/dL 1.39* JVJ-FNR-YNWGIDV mL/min/1.73 m2 52 CALCIUM mg/dL 9.0 ALBUMIN [...] Ordering Ensure High PRO bid. Last BM TRUCK HOPPER. BS range/24h: 97-112. D5 running at 30 [...] foods,deli meats, sausage, gutierrez, and gravies/sauces. Call [phone] to speak with a dietitian about any diet related concerns. Recommend to follow up with outpatient nutrition counseling, ask your doctor for a referral and call [phone] to make an appointment. Nutrition Follow-Up : 12/13/[address],LD NCIAL REPORTING ANALYST * Lianet Mckinney NP - 12/08/2023 1:20 [...] Units 1-3 Units subcutaneous Q4H [facility] Gaby Doyle MD levothyroxine (SYNTHROID) tablet 150 mcg 150 mcg oral Daily - 0600 Bernard Casillas MD 150 mcg at12/08/23 0640 [START ON 12/09/2023] pantoprazole DR (PROTONIX) extended release tablet 20 mg 20 mg oral Daily Gaby Doyle MD ramelteon (ROZEREM) tablet 8 mg 8 mg oral Nightly PRN Bernard Casillas MD rosuvastatin (CRESTOR) tablet 10 mg 10 mg oral Daily Brenard Casillas MD 10 mg at 12/08/23 0841 sodium chloride 0.9% flush 0.5-20 mL 0.5-20 mL intra-catheter Q8H [facility] Gaby Doyle MD 10 mL at 12/08/23 [...] oriented to person, place, and time. Coordination: Yxubwk-Gywm-Juwhqv Test abnormal. Psychiatric: Speech: Speech normal. Neurologic [...] Mahajan II, MD at 12/09/2023 8:48 AM FINANCIAL REPORTING ANALYST NCIAL REPORTING ANALYST NCIAL REPORTING ANALYST Associated attestation - Nayan Mahajan II, MD - 12/09/2023 8:48 AM FINANCIAL REPORTING ANALYST I performed a substantial portion of this [...] PATIENT'S NAME:Gunjan Gtz Jr. :1945 AGE:78 y.o. ROOM:[place] [address] TIME IN: 1034 TIME OUT:1118 CURRENT DIAGNOSIS AND HOSPITAL COURSE: Admitted on stroke protocol due to sudden onset of difficulty with speech and left sided weakness. Received TNK @[employer] 12/07/23. Concern for acute ischemic right cerebral [...] Infrarenal abdominal aortic aneurysm (AAA) without rupture ([facility]) Acute CVA (cerebrovascular accident) ([facility]) Past Medical History: Diagnosis Date Acute gastric [...] with delayed healing, subsequent encounter Clotting disorder ([facility]/HCC) ([facility]) Complex tear of [...] insufficiency fracture of condyle of left femur (CMS/[facility]) ([facility]) [...] 6 months. 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 EQUIPMENT OWNED: wheeled walker, rollator, toilet [...] min assist for sit to/from stand with METAL CUTTER, minimal knee block needed in static standing. Moderate assist for bed to chair with METAL CUTTER, max knee block needed due to complete [...] 18 = Likely require inpatient rehab or nursing home placement at discharge APPEARANCE/POSTURE (end of session): [...] least 10 reps each. 12/08/23 12/15/23 -- NCIAL REPORTING ANALYST * Laquita Mukherjee, OT - 12/08/2023 10:34 AM CST Occupational Therapy NOTE / SESSION TYPE: Initial Evaluation Patient Name: Gunjan Gtz Jr. Date of : 1945 Age / Sex: 78 y.o. / male Room: [place] [address] Admit Date: 12/07/2023 Date of Service: 12/08/23 [...] with delayed healing, subsequent encounter Clotting disorder ([facility]) ([facility]) [...] insufficiency fracture of condyle of left femur ([facility]) ([facility]) [...] assist with housekeeping, laundry, meal preparation, shopping, executive vice president and chief financial officer, medication management Mobility device used prior to admission: None Equipment available: Rollator, wheeled walker, and straight cane, BSC Community access / Driving: Drives self 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 Nigel [address] Number of trialto [id number] 13 November 1 0 3 0 3. [...] asked you to remember. Nigel Williamson [address] [facility]. [x] Nigel [x] Clay []42 [x][facility] [x][place] 5 1(b) 2 2 A weighted error score of 9 or greater indicates a need for further assessment. Total Weighted Error Score = 2 (a) Scoring 0 = No errors, 1 = 1 error, 2 = 2 or more errors, (b) An answer of either [facility] or [facility] is acceptable. UE ROM / Strength / [...] 3+/5, wrist extension 2+/5 Hand Dominance: Right Permastone Installer Strength (Right) Good Permastone Installer Strength (Left): Fair Right Serial Opposition: Intact Left Serial Opposition: Other: Only able to complete with index and middle fingers Right Fztszq-Thjs-Ceuzwt: Intact Left Czfedn-Bzbq-Lrwzge:Decreased rate and accuracy VISUAL ASSESSMENT: Field-cut assessment- [...] Date Expected End Date End Date OT [facility] 1 12/08/23 12/15/23 -- Goal Details: Patient will complete HEP of left UE AROM and self-ROM exercises including digits with initial verbal cues one time to increase tolerance for ADLs Goal Start Date Expected End Date End Date OT [facility] 2 12/08/23 12/15/23 -- Goal [...] Date End Date OT [facility] 6 12/08/23 12/15/23 -- Goal Details: Patient will complete toilet transfer with min assist one time Goal Start Date Expected End Date End Date OT [facility] - [facility] 7 12/08/23 12/15/23 -- Goal Details: Patient will complete a functional activity while sitting on EOB with good- balance x4-5 minutes to improve endurance and tolerance for ADLs one time Goal Start Date Expected End Date End Date OT [facility] - [facility] 8 12/08/23 12/15/23 -- Goal Details: Patient will complete visual scanning activity in left upper and lower quadrants withinitial verbal cues to address visual deficit one time If this is the last note, consider this the discharge summary Laquita Mukherjee OT 12/08/23 NCIAL REPORTING ANALYST * Paresh Prieto SLP - 12/08/2023 9:15 [...] left femur (CMS/HCC) ([facility]) Closed fracture of left tibial [...] Skin lesion of breast Edema Intermittent claudication ([facility]) Iron deficiency anemia Peripheral vascular disease ([facility]) Pain due to total right knee replacement (CMS/HCC) ([facility]) Hamstring tendinitis of right thigh [...] Infrarenal abdominal aortic aneurysm (AAA) without rupture ([facility]) Acute CVA (cerebrovascular accident) ([facility]) Past Medical History: Diagnosis Date Acute gastric [...] with delayed healing, subsequent encounter Clotting disorder ([facility]/HCC) ([facility]) Complex tear of [...] Independent with all self care tasks. Shares microbiology director with . 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 SOCIAL SUPPORTS: PATIENT/FAMILY GOAL: None stated [...] a while. SWALLOWING/DYSPHAGIA Swallow not assessed by TOOL HONING MACHINE SET UP OPERATOR. Patient passed nursing dysphagia screener on admission. [...] protocol with patient. RESPONSE TO EDUCATION:verbalizes understanding NCIAL REPORTING ANALYST * Sonja Hayward RN - 12/08/2023 8:33 AM CST Inpatient Rehabilitation has initiated an evaluation per stroke protocol. Will continue to follow for medical stability and tolerance / participation in therapies. Sonja Hayward RN 12/08/23 NCIAL REPORTING ANALYST * Gaby Doyle MD - 12/08/2023 8:24 [...] 30 mL/hr, Last Rate: 30 mL/hr (12/07/23 5512) PRN Meds:. acetaminophen OR acetaminophen OR acetaminophen [...] reviewed with attending, Dr. Kwesi Doyle MD [facility] fellow Procedures Cosigned by Dioni Orosco MD at 12/09/2023 6:04 PM FINANCIAL REPORTING ANALYST NCIAL REPORTING ANALYST NCIAL REPORTING ANALYST documented in this encounter H&P Notes [...] been reviewed with attending, Samuel Doyle MD [facility] fellow Procedures Cosigned by Maxi Carrion MD at 12/10/2023 1:55 PM FINANCIAL REPORTING ANALYST NCIAL REPORTING ANALYST NCIAL REPORTING ANALYST documented in this encounter Procedure Notes * Bernard Casillas MD - 12/07/2023 10:02 PM CSTAssociated Order(s): Critical Care Post-Procedure Diagnose(s): Acute CVA (cerebrovascular accident) (HCC) Critical Care Performed by: Bernard Casillas MD Authorized by: Bernard Casillas MD CRITICAL CARE: Team: [facility] Shift: PM Level of Billing: Critical Care [...] plan with the ICU team and other medical/senior science consultant staff, making frequent assessments and decisions [...] ICU with Q1H neurochecks pending stability CT. NCIAL REPORTING ANALYST documented in this encounter Consult Notes * Nayan Mahajan II, MD - 12/07/2023 1:44 PM CST [facility] Neurology Gunjan Gtz Jr. CONSULTATION 12/07/2023 [...] insufficiency fracture of condyle of left femur (CMS/[facility]) ([facility]) [...] oriented to person, place, and time. Coordination: Hxeecx-Husb-Jyociy Test abnormal. Heel to Hodges Test normal. [...] upper extremity but he has difficulty with hlumxa-mlvs-akebxd testing because of weakness. Sensory Exam Light [...] Right achilles: 1+ Left achilles: 1+ Right inspector and tester: 1+ Left inspector and tester: 1+ Right plantar: normal Left plantar: normal Right ankle clonus: absent Left ankle clonus: absentParetic ataxia of the left upper extremity in pijpea-usdj-qnqfiq testing Impression and Recommendations. 1. Acute right [...] often as needed. Nayan Mahajan II, MD NCIAL REPORTING ANALYST * Chayo Epperson MD - 12/07/2023 1:39 PM CST Images from the original note were not included. [facility] Telestroke Consultation Note Patient Name: Gunjan Gtz [...] (7.): Present in two limbs Sensory (8.): Ixam-rp-lafswmew sensory loss, patient feels pinprick is less sharp or is dull on theaffected side, or there is a loss of superficial pain with pinprick, but patient is aware of being touched Best Language (9.): No aphasia Dysarthria (10.): Mnjc-se-nygeecfb dysarthria, patient slurs at least some words [...] coordinating care 25 minutes. Chayo Epperson MD [facility] Telestroke Service For follow up questions please call the [facility] Transfer Center and ask to speak with the on-call physician for Telestroke NCIAL REPORTING ANALYST documented in this encounter Nursing Notes * Owen Hu RN - 12/15/2023 1:36 PM CST Impression: Patient re-evaluated by SWAT RN due to increase risk for impaired skin integrity. Hood Score: 16. Contributing history includes: AAA, PVD, Anemia, CVA. Skin appears free from Makenna at this time. Plan: Continue pressure prevention orders- Q2 turns, waffle mattress, absorbant pads, and prevalon boots. Goal: Pressure relief. Moisture management. NCIAL REPORTING ANALYST * Ever Ventura RN - 12/09/2023 4:39 AM CST Pt was transported to room 726, NIH was done at bedside with accepting nurse, pt was fully aware ofsituation, and bedpad was changed upon arrival. All belongings were transported with pt. VSS and pthad no complaints of pain. NCIAL REPORTING ANALYST * Owen Hu RN - 12/08/2023 9:25 AM CST Impression: Patient evaluated by DAYO RN due to increase risk for impaired skin integrity. Hood Score: 15. Contributing history includes: AAA, PVD, Anemia, CVA. Skin appears free from Makenna at this time. Plan: Continue pressure prevention orders- Q2 turns, waffle mattress, absorbant pads, and prevalon boots. Goal: Pressure relief. Moisture management. NCIAL REPORTING ANALYST documented in this encounter ED Notes * Severino Mejía, - 12/07/2023 1:02 PM CSTAssociated Order(s): Critical [...] insufficiency fracture of condyle of left femur (CMS/[facility]) ([facility]) [...] nursing note reviewed. Exam conducted with a institutional cook present (ED RN x2 at bedside). Constitutional: [...] (230 lb) SpO2 98% BMI 32.09 kg/m?? [facility] Amount and/or Complexity of Data Reviewed Clinical [...] accident) (HCC) Severino Mejía DO 12/07/23 1347 NCIAL REPORTING ANALYST documented in this encounter Miscellaneous Notes * Plan of Care - Indira Vera RN - 12/15/2023 12:36 PM CST Patient was accepted with [facility] and is able to d/c there today and will go into room 208. COVID test is negative, FOB negative, and he had a bowel movement last night. [facility] RASHID Johnson-RN, Nurse Registered Representative [phone] NCIAL REPORTING ANALYST * Plan of Care - Norma Saul RN - 12/15/2023 9:33 AM CST Goals: Clinical Goals for the Shift: Continue Q8 neuro checks with improvement, maintain safety and comfort, discharge planning Field Sales Associate Patient Centered Goal for Treatment: discharge Summary: Patient to be discharged to [facility] to continue therapy. Pt educated on stroke symptoms and his risk factors. Patient's neuro checks continued Q8. Q2 turns performed to prevent skin breakdown. Care continued. NCIAL REPORTING ANALYST * Plan of Care - Paresh Prieto SLP - 12/15/2023 9:31 AM CST Problem: Cognitive/Linguistics Goal: STG - Patient will recall new information Description: With 80% accuracy Outcome: Progressing Goal: STG - Patient will participate in further assessment of cognitive- linguistic skills Outcome: Progressing Problem: Communication/Motor Speech Goal: STG - Patient will participate in oral-motor exercises to improve strength Outcome: Progressing NCIAL REPORTING ANALYST * Plan of Care - Chapis Mcknight [...] Shift: Q8 NEURO CHRCKS, MONITOR PAIN comfort/safety Mcfp Patient Centered Goal for Treatment: discharge Summary: All goals were met.No acute changes. NCIAL REPORTING ANALYST * Plan of Sariah - Andreia Nicolas RN - 12/14/2023 5:28 PM CST Problem: Discharge Planning Goal: Understanding discharge needs will improve Outcome: Progressing Goals: Clinical Goals for the Shift: safety;comfort [facility] Patient Centered Goal for Treatment: discharge pt had covid test sent and was given pericolace,laculose and miralax today and still no results. Will transfer to [facility] when fob and bm obtained. Summary: [...] cardiac dysrhythmias or at baseline Outcome: Progressing NCIAL REPORTING ANALYST * Plan of Care - Alanna Cintron MSW - 12/14/2023 4:22 PM CST SW acknowledge consult for needs assistance with POA documentation. JIMENA chart reviewed and it was noted in H&P and daily medical progress notes that patient has Alzheimer, POA. Given Alzheimer diagnosis SW is unable to proceed with POA. SW did inform patient and family (, daughters) at bedside of SW being unable to proceed. SW will continue to follow. Alanna Cintron LMSW Shell Sorter Case Management NCIAL REPORTING ANALYST * Plan of Care - Paresh Prieto SLP - 12/14/2023 3:12 PM CST Problem: Cognitive/Linguistics Goal: STG - Patient will recall new information Description: With 80% accuracy Outcome: Progressing Goal: STG - Patient will participate in further assessment of cognitive- linguistic skills Outcome: Progressing Problem: Communication/Motor Speech Goal: STG - Patient will participate in oral-motor exercises to improve strength Outcome: Progressing NCIAL REPORTING ANALYST * Pre-Admission Screening - Sonja Hayward RN - 12/14/2023 2:06 PM FINANCIAL REPORTING ANALYST [facility] Physical Medicine and Rehabilitation Preadmission Screening Reason [...] level of care. Patient is currently at [place] [address] . The patient is being referred and [...] Case Management, Social Work, Therapeutic Recreation, SpeechTherapy, Womens Health Nurse Practitioner Expected level of improvement is: very good [...] rehabilitation risks and benefits. Payor Source: Primary: [facility] # [id number] Secondary: N/A Case discussed with Dr Price [...] Drinking: Less than monthly Patient's Preferred Language: Paraguayan Cultural Requests During Hospitalization: NONE Acute Conditions/Co-morbidities requiring Acute Rehab: Arrhythmia, Cerebrovascular Accident (CVA), Pneumonia and/or other respiratory issues, Neurological disorder/exacerbation, Uncontrolled HTN, Other (comment) (EKG-SinusBradycardia;ZxsalJXL-ZNW-MxjwmYoyySqxytjnec Limb,Interanlcapsule,LentiformNucleus-S/PTNK;BlurredVision Hypertension,Depression,Insomnia,Asthma,Vomiting-Coffee GroundEmesis-Consti pation;GastroEsophagealRefluxDisease Hyperlipidemia.) HPI: Patient was at the [facility], in the parking lot and had sudden [...] (Added by TW Conv) ?? Alzheimer's dementia ([facility]) ?? Asthma ?? Back pain ?? Cataract ?? Closed fracture of left tibial plateau with delayed healing ?? Closed fracture of right tibial plateau with delayed healing ?? Closed nondisplaced osteochondral fracture of left patella with delayed healing ?? Closed osteochondral fracture of patella, right, with delayed healing, subsequent encounter ?? Clotting disorder (CMS/HCC) ([facility]) ?? Complex tear of medial meniscus of left knee as current injury ?? Complex tear of medial meniscus of right knee as current injury ?? Cramps of lower extremity ?? Diverticulitis of colon ?? Easy bruisability ?? Fatigue ?? Frequent urination ?? Gastroesophageal reflux disease ?? Hypothyroidism ?? Incontinence of urine ?? Muscle weakness ?? Osteoarthritis Peptic ulcer ?? Seizures ([facility]) 1997 last seizure in 1997 ?? SOB [...] upper extremity but he has difficulty with mcrsuc-zfrh-skqden testing because of weakness. Paretic ataxia of the left upper extremity in llmelq-rkbb-qpmrub testing Impression and Recommendations. 1. Acute right [...] to move his left shoulder but cannot inspector and tester with his left hand or raise the [...] 5. Continue aggressive PT/OT/ST. 12/14/2023; Zheng Veras NETWORK FIREWALL ENGINEER Hospitalist Progress Note: Clinical course: Patient awake [...] and small-vessel disease. No hemorrhagic changes identified. -PT/OT/TOOL HONING MACHINE SET UP OPERATOR -Change diet to mechanical soft on 12/10, [...] ground emesis; and significant functional decline from [place] with BADLS and IADLS; patient is an [employer]. Date of Onset: Date of Onset: 12/07/23 Date Admitted to Acute: Date admitted to acute: 12/07/23 Precautions/Restrictions: Falls, Seizure, Hypertension Weight Bearing Precautions: NONE [place] Suicide Severity Rating Scale: 1. 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 (12/14/2023 1:53 PM) Cognition/Communication/Swallowing: TOOL HONING MACHINE SET UP OPERATOR Cognition: Treatment Note 12/13/2023: MENTAL STATUS: Patient awake, sitting up in chair. Reports improvement with double vision. COGNITION: Cognitive deficits in short term memory and insight. TREATMENT ACTIVITIES: Recall daily activities/recent events with 100% accuracy Oral motor exercises 10xs each Oriented x4 (12/14/2023 1:53 PM) TOOL HONING MACHINE SET UP OPERATOR Communication: Treatment Note 12/13/2023: COMMUNICATION: Mild dysarthric speech. (12/14/2023 1:53PM) TOOL HONING MACHINE SET UP OPERATOR Swallowing: Treatment Note 12/13/2023: SWALLOWING: Swallow assessed by TOOL HONING MACHINE SET UP OPERATOR. Regular consistencydiet/thin liquids recommended. Patient's reports patient having difficulty with food getting stuck on left side of mouth. NETWORK FIREWALL ENGINEER changed diet to mechanical soft/thin liquids. (12/14/2023 1:53 PM) Conditions requiring acute rehab and risk for complications: Gait dysfunction - risk for falls and further injury, fracture Diabetes - risk for hypoglycemic episodes Uncontrolled Hypertension - risk for stroke, stroke extension, MA Decreased mobility - Risk for Fall, skin [...] requiring acute rehab: Intense PT/OT/SP, Access to Mental Health Social Worker physicians, Frequent labs, Frequent Neuro assessment, Radiology exam Alternative Level of Care considered and not appropriate due to: Consult physician oversight, Medication adjustment/oversight, Neurochecks Patient/Caregiver Goals: Patient and Family Goals: To get him strong enough to go home and completemost of his own care Cosigned by Becky Montana MD at 12/15/2023 10:55 AM FINANCIAL REPORTING ANALYST NCIAL REPORTING ANALYST NCIAL REPORTING ANALYST Associated attestation - Becky Montana MD - 12/15/2023 10:55 AM FINANCIAL REPORTING ANALYST Rehab Referral Decision: Approved I have reviewed [...] the intensive Inpatient rehabilitation program offered at [facility] . * Plan of Care - Indira Vera RN - 12/14/2023 1:25 PM CST [facility] Medicare has approved pt to go to [facility] for inpatient acute rehab. Per JAE Calzada, pt is constipated and will need to first have a bowel movement and can go if FOB is negative; CMR request pt arrives no later than 4 pm; therefore, d/c to [facility] is likely tomorrow, 12/14. PEG JohnsonRN, Nurse Registered Representative [phone] NCIAL REPORTING ANALYST * Plan of Care - Tamar Valle [...] vital signs stable,promted cares comfort and safety NCIAL REPORTING ANALYST * Plan of Care - Indira Vera RN - 12/13/2023 2:16 PM CST Esther with CMR stated that insurance auth was submitted to [facility] and the status is: pending andawaiting clinical review . CM notified pt and family at bedside. Spouse has questions regarding POAdocumentation. consult order submitted and FIBERGLASS BOAT BUILDER notified. HANNAH Johnson, Nurse Registered Representative [phone] NCIAL REPORTING ANALYST * Plan of Care - Amie Rdz [...] VS, Comfort, Safety Summary: pt verbalized understanding NCIAL REPORTING ANALYST * Plan of Care - Paresh Prieto SLP - 12/13/2023 1:25 PM CST Problem: Cognitive/Linguistics Goal: STG - Patient will recall new information Description: With 80% accuracy Outcome: Progressing Goal: STG - Patient will participate in further assessment of cognitive- linguistic skills Outcome: Progressing Problem: Communication/Motor Speech Goal: STG - Patient will participate in oral-motor exercises to improve strength Outcome: Progressing NCIAL REPORTING ANALYST * Plan of Care - Eileen Clark [...] CT head. Needs attended. Patient kept monitored. NCIAL REPORTING ANALYST * Plan of Care - Amie Rdz [...] VSS, comfort, safety Summary: pt verbalized understanding NCIAL REPORTING ANALYST * Plan of Care - Eileen Clark [...] turns facilitated. Needs attended. Patient kept monitored. NCIAL REPORTING ANALYST * Plan of Care - Amie Rdz [...] VSS, comfort, safety Summary: pt verbalized understanding NCIAL REPORTING ANALYST * Plan of Care - Taylor Mahajan RRT - 12/11/2023 7:30 AM CST Pt received Breo Ellipta inhaler. Tolerated well. Continue as ordered. NCIAL REPORTING ANALYST * Plan of Care - Eileen Clark [...] looks like coffee groun d - informed NETWORK FIREWALL ENGINEER Kristen Carter, orders facilitated. Needs attended. Patient kept monitored. NCIAL REPORTING ANALYST * Plan of Care - Amie Rdz [...] comfort/safety Summary: pt and family verbalized understanding NCIAL REPORTING ANALYST * Plan of Care - Indira Vera RN - 12/10/2023 3:26 PM CST CM met with pt and family at bedside. They are agreeable for pt to go to CMR and to start insuranceauthorization. CM called Esther with CMR to notify her and she will begin auth today. [place] such [facility] and [place], [place] are further from their home. RASHID Johnson-RN, Nurse Registered Representative [phone] NCIAL REPORTING ANALYST * Plan of Care - Indira Vera RN - 12/10/2023 1:46 PM CST [facility] are unable to accept pt as his insurance is OON. [facility] are willing to accept pt. Attempt to meet with pt and family at bedside; however, he is working with therapy. Will attempt again at a later time. HANNAH Johnson, Nurse Registered Representative [phone] NCIAL REPORTING ANALYST * Plan of Care - Paresh Prieto SLP - 12/10/2023 1:43 PM CST Problem: Cognitive/Linguistics Goal: STG - Patient will recall new information Description: With 80% accuracy Outcome: Progressing Goal: STG - Patient will participate in further assessment of cognitive- linguistic skills Outcome: Progressing Problem: Communication/Motor Speech Goal: STG - Patient will participate in oral-motor exercises to improve strength Outcome: Progressing NCIAL REPORTING ANALYST * Plan of Care - Chapis Mcknight [...] in lowest position and calllight within reach. NCIAL REPORTING ANALYST * Plan of Care - Chapis Mcknight [...] All goals were met. Mo acute changes NCIAL REPORTING ANALYST * Initial Assessments - Shaan Grayson MSW [...] Payor Source: Medicare advantage Race: Black or -Latvian Ethnicity: Non- Gender Identity: Male (12/09/23 3750) Current Situation: Current Situation Living Arrangements: Spouse/significant other Type of Residence: Private residence (12/09/23 1616) Legal History: Support Systems and Spirituality: Support Systems and Spirituality Support System: Spouse Spouse Name/Contact Information: Yakov Gtz (12/09/23 1616) Strengths, Assets, Liabilities and Stressors: SDOH Transportation [...] More than three times a week Attends [employer] Services: More than 4 times per year [...] assess at this time. Impressions and Recommendations: FIBERGLASS BOAT BUILDER received consult for Advance care planning. FIBERGLASS BOAT BUILDER met with pt and pt's family(spouse and two daughters) at bedside today. FIBERGLASS BOAT BUILDER introduced self. Pt is still interested in POA document. FIBERGLASS BOAT BUILDER briefly explained POA document to pt.Pt thanked FIBERGLASS BOAT BUILDER and has no other questions regarding POA document. Pt and pt's family confirmed that their goal is for pt to go to [facility] at time of discharge. FIBERGLASS BOAT BUILDER will FU as needed. NCIAL REPORTING ANALYST * Plan of Care - Indira Vera RN - 12/09/2023 3:43 PM CST Patient and family are interested in inpatient acute rehab closer to his home at [facility]. Referral submitted via [facility]. RASHID Johnson-RN, Nurse Registered Representative [phone] NCIAL REPORTING ANALYST * ECIN Note - Indira Vera RN [...] None Principal Problem: Acute CVA (cerebrovascular accident) ([facility]) [I63.9] Elopement Risk Date/Time Risk/Reason for Elopement User 12/08/23 0727 No risk MJB 12/07/23 1321 No risk MFS Intake/Output 12/07/23 0700 - 12/08/23 0659 12/08/23 0700 - 12/09/23 0659 12/09/23 0700 - 12/10/23 0659 Total 9098-1132 5510-1838 5618-2820 Total 9482-5324 4342-4781 9388-7988 Total Intake (ml) 420 720.5 240 -- [...] Name 12/09/23 1317 12/09/23 12:00:57 12/09/23 08:03:19 02/29/24 0449 12/09/23 0400 Oxygen Therapy/Pulse Ox O2 [...] % 97 % Row Name 12/07/23 23112/07/23 23012/07/23224912/07/23223912/07/23 223 Oxygen Therapy/Pulse Ox SpO2 96 % 96 % 96 % 97 % 96 % Row Name 12/07/23222712/07/23222612/07/23222512/07/23222412/07/23 222 Oxygen Therapy/Pulse Ox SpO2 98 % [...] (Comment: [facility] Refused by patient/family 0803 Supine [...] support 12/07 1800 Turn self;Semi-fowlers;Pillow support;Supine 12/07 1657 Turn self;Semi-fowlers;Supine Head of Bed Elevated 1200 [...] 12/07 2000 On 12/07 1800 On 12/07 1657 On All Meds/Most Recent Administrations ioversoL (OPTIRAY 350) syringe 125 mL [[id number]] Ordering Provider: Severino Mejía DO Status: Completed (Past End Date/Time) Ordered On: 12/07/23 1304 Starts/Ends: 12/07/23 1304 - 12/07/23 1317 Ordered Dose (Remaining/Total): 125 mL (0/1) Route: intravenous Frequency: Once in imaging Ordered Rate/Order Duration: -- / -- Timestamps Action Dose Route Other Information 12/07/23 1317 Contrast Given 120 mL intravenous Performed by: Mendoza Kidd RT Scanned Package: [id number] sodium chloride 0.9% flush 10 mL [[id number]] Ordering Provider: Severino Mejía DO Status: Completed (Past End Date/Time) Ordered On: 12/07/23 1323 Starts/Ends: 12/07/23 1324 - 12/07/231326 Ordered Dose (Remaining/Total): 10 mL (0/1) Route: intra-catheter Frequency: Once Ordered Rate/Order Duration: -- / -- Admin Instructions: Flush IV catheter BEFORE and AFTER tenecteplase administration. Timestamps Action Dose Route Other Information 12/07/231326 Given 10 mL intra-catheter Performed by: Tal Johnston RN Scanned Package: [id number] tenecteplase (TNKase) injection for STROKE 25 mg [[id number]] Ordering Provider: Severino Mejía, Status: Completed (Past [...] Johnston RN Dual Signoff by: Roberto Kraus [facility] Scanned Package: [id number] sodium chloride 0.9% flush 10 mL [[id number]] Ordering Provider: Severino Mejía, DO Status: Completed (Past End Date/Time) Ordered On: 12/07/231322 Starts/Ends: 12/07/231323 - 12/07/231326 Ordered Dose (Remaining/Total): 10 mL (0/1) Route: intra-catheter Frequency: Once Ordered Rate/Order Duration: -- / -- Admin Instructions: Flush IV catheter BEFORE and AFTER tenecteplase administration. Timestamps Action Dose Route Other Information 12/07/231326 Given 10 mL intra-catheter Performed by: Tal Johnston RN Scanned Package: [id number] hydrALAZINE (APRESOLINE) injection 10 mg [[id number]] Ordering Provider: Severino Mejía DO Status: Discontinued [...] this medication) labetaloL (NORMODYNE,TRANDATE) injection 10 mg [[id number]] Ordering Provider: Severino Mejía, DO Status: Discontinued (Past End Date/Time) Ordered [...] medication) sodium chloride 0.9% flush 0.5-20 mL [[id number]] Ordering Provider: Gaby Doyle MD Status: Verified Ordered On: 12/07/231704 Start: 12/07/231744 Ordered Dose (Remaining/Total): 0.5-20 mL (--/--) Route: intra-catheter Frequency: Every 8 hours scheduled Ordered Rate/Order Duration: -- / -- Admin Instructions: Flush volume based on line type and size. Timestamps Action Dose Route Other Information 12/09/23 0514 Given 10 mL intra-catheter Performed by: Emily Bellamy RN Scanned Package: [id number] sodium chloride 0.9% flush 0.5-20 mL [[id number]] Ordering Provider: Gaby Doyle MD Status: Verified Ordered On: 12/07/231704 Start: 12/07/231702 Ordered Dose (Remaining/Total): 0.5-20 mL (--/--) Route: intra-catheter Frequency: As needed Ordered Rate/Order Duration: -- / -- Admin Instructions: Flush volume based on line type and size. Flush before and after each use. (No admins scheduled or recorded for this medication) Carrier Fluids for Secondary Infusion - 0.9% Sodium Chloride [[id number]] Ordering Provider: Gaby Doyle MD Status: Verified [...] 5% and sodium chloride 0.9% infusion (premix) [[id number]] Ordering Provider: Gaby Doyle MD Status: Discontinued [...] intravenous Performed by: Ayleen Kathleen Scanned Package: [id number] insulin lispro (HumaLOG, ADMELOG) 100 unit/mL injection 1-3 Units [[id number]] Ordering Provider: Gaby Doyle MD Status: Discontinued [...] medication) dextrose oral liquid liquid 15 g [[id number]] Ordering Provider: Gaby Doyle MD Status: Verified [...] medication) dextrose (D10W) 10% bolus 250 mL [[id number]] Ordering Provider: Gaby Doyle MD Status: Verified [...] hour post treatment. If BG is less kqtk019 mg/dL, repeat Q15 minute BG checks and treatment. Call MD for each episode of hypoglycemia. (No admins scheduled or recorded for this medication) glucagon injection 1 mg [[id number]] Ordering Provider: Gaby Doyle MD Status: Verified [...] this medication) acetaminophen (TYLENOL) suppository 650 mg [[id number]] Ordering Provider: Gaby Doyle MD Status: Discontinued (Past End Date/Time) Ordered On: 12/07/231737 Starts/Ends: 12/07/231737 - 12/07/231930 Ordered Dose (Remaining/Total): 650 mg (--/--) Route: rectal Frequency: Every 6 hours PRN Ordered Rate/Order Duration: -- / -- (No admins scheduled or recorded for this medication) pantoprazole (PROTONIX) 40 mg in sodium chloride 0.9% 10 mL IV Syringe [[id number]] Ordering Provider: Gaby Doyle MD Status: Discontinued [...] Performed by: Lyn Easley RN Scanned Package: [id number], [id number] fluticasone furoate-vilanteroL (BREO ELLIPTA) 100-25 mcg/dose inhaler 1 puff [[id number]] Ordering Provider: Gaby Doyle MD Status: Dispensed Ordered On: 12/07/231756 Start: 12/07/231829 Ordered Dose (Remaining/Total): 1 puff (--/--) Route: inhalation Frequency: 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) Ordered Rate/Order Duration: -- / -- Timestamps Action Dose Route Other Information 12/09/23 1317 Given 1 puff inhalation Performed by: Sujata Wong CRTT Scanned Package: [id number] albuterol HFA (PROVENTIL HFA,VENTOLIN HFA,PROAIR HFA) 90 mcg/actuation inhaler 2 puff [[id number]] Ordering Provider: Gaby Doyle MD Status: Discontinued (Past End Date/Time) Ordered On: 12/07/231756 Starts/Ends: 12/07/231754 - 12/07/231758 Ordered Dose (Remaining/Total): 2 puff (--/--) Route: inhalation Frequency: Every 4 hours PRN Ordered Rate/Order Duration: -- / -- (No admins scheduled or recorded for this medication) albuterol HFA (PROVENTIL HFA,VENTOLIN HFA,PROAIR HFA) 90 mcg/actuation inhaler 2 puff [[id number]] Ordering Provider: Gaby Doyle MD Status: Verified Ordered On: 12/07/231758 Start: 12/07/231758 Ordered Dose (Remaining/Total): 2 puff (--/--) Route: inhalation Frequency: Every 4 hours 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) Ordered Rate/Order Duration: -- / -- (No admins scheduled or recorded for this medication) acetaminophen (TYLENOL) tablet 650 mg [[id number]] Ordering Provider: Bernard Casillas MD Status: Dispensed Ordered On: 12/07/231930 Start: 12/07/231930 Ordered Dose (Remaining/Total): 650 mg (--/--) Route: oral Frequency: Every 4 hours PRN Ordered Rate/Order Duration: -- / -- Admin Instructions: Administer if patient can swallow tablets. Timestamps Action Dose Route Other Information 12/07/232022 Given 650 mg oral Performed by: Lara Weinberg RN Scanned Package: [id number], 11510-796-47 acetaminophen (TYLENOL) 32 mg/mL oral liquid 650 mg [[id number]] Ordering Provider: Bernard Casillas MD Status: Verified Ordered On: 12/07/231930 Start: 12/07/231930 Ordered Dose (Remaining/Total): 650 mg (--/--) Route: feeding tube Frequency: Every 4 hours PRN Ordered Rate/Order Duration: -- / -- Admin Instructions: Administer if patient receiving meds per tube. (No admins scheduled or recorded for this medication) acetaminophen (TYLENOL) suppository 650 mg [[id number]] Ordering Provider: Bernard Casillas MD Status: Verified Ordered On: 12/07/231930 Start: 12/07/231930 Ordered Dose (Remaining/Total): 650 mg (--/--) Route: rectal Frequency: Every 4 hours PRN Ordered Rate/Order Duration: -- / -- Admin Instructions: Administer if patient cannot tolerate enteral route. (No admins scheduled or recorded for this medication) rosuvastatin (CRESTOR) tablet 10 mg [[id number]] Ordering Provider: Bernard Casillas MD Status: Discontinued (Past End Date/Time) Ordered On: 12/07/231936 Starts/Ends: 12/07/232014 - 12/09/23 1405 Ordered Dose (Remaining/Total): 10 mg (--/--) Route: oral Frequency: Daily Ordered Rate/Order Duration: -- / -- Timestamps Action Dose Route Other Information 12/09/23 0913 Given 10 mg oral Performed by: Sarah Lemus RN Scanned Package: [id number] hydrALAZINE (APRESOLINE) injection 10 mg [[id number]] Ordering Provider: Bernard Casillas MD Status: Discontinued [...] this medication) labetaloL (NORMODYNE,TRANDATE) injection 10 mg [[id number]] Ordering Provider: Bernard Casillas MD Status: Discontinued [...] this medication) donepeziL (ARICEPT) tablet 10 mg [[id number]] Ordering Provider: Bernard Casillas MD Status: Dispensed Ordered On: 12/07/231941 Start: 12/07/232099 Ordered Dose (Remaining/Total): 10 mg (--/--) Route: oral Frequency: Nightly Ordered Rate/Order Duration: -- / -- Timestamps Action Dose Route Other Information 12/08/232099 Given 10 mg oral Performed by: Ever Ventura RN Scanned Package: [id number] tamsulosin (FLOMAX) extended release capsule 0.4 mg [[id number]] Ordering Provider: Bernard Casillas MD Status: Dispensed Ordered On: 12/07/231941 Start: 12/07/232099 Ordered Dose (Remaining/Total): 0.4 mg (--/--) Route: oral Frequency: Nightly Ordered Rate/Order Duration: -- / -- Admin Instructions: Do not crush, chew, cut, dissolve, open or otherwise manipulate tablet/capsule. Timestamps Action Dose Route Other Information 12/08/232099 Given 0.4 mg oral Performed by: Ever Ventura RN Scanned Package: [id number] levothyroxine (SYNTHROID) tablet 150 mcg [[id number]] Ordering Provider: Bernard Casillas MD Status: Dispensed Ordered On: 12/07/231941 Start: 12/08/23599 Ordered Dose (Remaining/Total): 150 mcg (--/--) Route: [...] Performed by: Emily Bellamy RN Scanned Package: [id number] gabapentin (NEURONTIN) capsule 300 mg [[id number]] Ordering Provider: Bernard Casillas MD Status: Dispensed Ordered On: 12/07/231941 Start: 12/07/232099 Ordered Dose (Remaining/Total): 300 mg (--/--) Route: oral Frequency: 3 times daily Ordered Rate/Order Duration: -- / -- Timestamps Action Dose Route Other Information 02/29/24 0913 Given 300 mg oral Performed by: Sarah Lemus RN Scanned Package: [id number] ramelteon (ROZEREM) tablet 8 mg [[id number]] Ordering Provider: Bernard Casillas MD Status: Verified Ordered On: 12/07/231941 Start: 12/07/231941 Ordered Dose (Remaining/Total): 8 mg (--/--) Route: oral Frequency: Nightly PRN Ordered Rate/Order Duration: -- / -- (No admins scheduled or recorded for this medication) pantoprazole DR (PROTONIX) extended release tablet 20 mg [[id number]] Ordering Provider: Gaby Doyle MD Status: Dispensed Ordered On: 12/08/23 0851 Start: 12/09/23899 Ordered Dose (Remaining/Total): 20 mg (--/--) Route: oral Frequency: Daily Ordered Rate/Order Duration: -- / -- Admin Instructions: Do not crush, chew, cut, dissolve, open or otherwise manipulate tablet/capsule. Timestamps Action Dose Route Other Information 12/09/23912 Given 20 mg oral Performed by: Sarah Lemus RN Scanned Package: [id number] tiZANidine (ZANAFLEX) tablet 2 mg [[id number]] Ordering Provider: Dioni Orosco MD Status: Dispensed Ordered On: 12/08/23 1014 Start: 12/08/23 1014 Ordered Dose (Remaining/Total): 2 mg (--/--) Route: oral Frequency: 3 times daily PRN Ordered Rate/Order Duration: -- / -- Admin Instructions: Administer on an empty stomach Timestamps Action Dose Route Other Information 12/08/23 1019 Given 2 mg oral Performed by: Lyn Easley RN Scanned Package: [id number] aspirin chewable tablet 81 mg [[id number]] Ordering Provider: Gaby Doyle MD Status: Dispensed Ordered On: 12/08/23 1608 Start: 12/08/23 1645 Ordered Dose (Remaining/Total): 81 mg (--/--) Route: oral Frequency: Daily Ordered Rate/Order Duration: -- / -- Timestamps Action Dose Route Other Information 12/09/23 0913 Given 81 mg oral Performed by: Sarah Lemus RN Scanned Package: [id number] hydrALAZINE (APRESOLINE) injection 10 mg [[id number]] Ordering Provider: Gaby Doyle MD Status: Verified [...] this medication) enoxaparin (LOVENOX) syringe 40 mg [[id number]] Ordering Provider: Gaby Doyle MD Status: Verified Ordered On: 12/08/23 1808 Start: 12/09/23 2100 Ordered Dose (Remaining/Total): 40 mg (--/--) Route: subcutaneous Frequency: Daily (for enoxaparin) Ordered Rate/Order Duration: -- / -- (No admins scheduled or recorded for this medication) rosuvastatin (CRESTOR) tablet 40 mg [[id number]] Ordering Provider: Lianet Mckinney NP Status: Verified [...] PM Progress Notes signed by Laquita Mukherjee, OLGA OT ASSESSMENT FLOWSHEET LAST DOCUMENTED (most recent) PT Evaluation - 12/09/23 12:00:57 Cognition Orientation Oriented X4 (person, place, time, situation) PT TREATMENT (most recent) PT Treatment - 12/09/23 12:00:57 Cognition Orientation Oriented X4 (person, place, time, situation) PT Notes 12/08/2023 1:35 PM Progress Notes signed by Paresh Triana, PT TOOL HONING MACHINE SET UP OPERATOR ASSESSMENT (most recent) TOOL HONING MACHINE SET UP OPERATOR Evaluation - 12/09/23 12:00:57 Cognition Orientation Oriented X4 (person, place, time, situation) TOOL HONING MACHINE SET UP OPERATOR SWALLOW STUDY (most recent) Clinical Swallow Study No documentation. TOOL HONING MACHINE SET UP OPERATOR TREATMENT (most recent) TOOL HONING MACHINE SET UP OPERATOR Treatment - 12/09/23 0803 Pain Assessment Pain Assessment 0-10 TOOL HONING MACHINE SET UP OPERATOR Notes 12/08/2023 9:36 AM Progress Notes signed by Paresh Prieto SLP 12/09/2023 11:15 AM Progress Notes signed by Paresh Prieto SLP 12/09/2023 2:24 PM Progress Notes signed by Paresh Prieto SLP 12/09/2023 2:52 PM Progress Notes addendum by Paresh Prieto, TOOL HONING MACHINE SET UP OPERATOR , OT Eval and Treat Last 72 [...] Cosigned By Initials Name Effective Dates Laquita Vargas OT 05/23/22 - OT Treatment No documentation. OT Notes 12/08/2023 2:21 PM Progress Notes signed by Mukherjee, Laquita, OT , OT Eval and Treat Last [...] min assist for sit to/from stand with METAL CUTTER, minimal knee block needed in static standing. Moderate assist for bed to chair with METAL CUTTER, max knee block needed due to complete [...] Notes signed by Paresh Triana, PT , TOOL HONING MACHINE SET UP OPERATOR Eval and Treat Last 72 Hours TOOL HONING MACHINE SET UP OPERATOR Evaluation No documentation. TOOL HONING MACHINE SET UP OPERATOR Treatment No documentation. Clinical Swallow Study No documentation. TOOL HONING MACHINE SET UP OPERATOR Notes 12/08/2023 9:36 AM Progress Notes signed by Paresh Prieto TOOL HONING MACHINE SET UP OPERATOR 12/09/2023 11:15 AM Progress Notes signed by Paresh Prieto TOOL HONING MACHINE SET UP OPERATOR 12/09/2023 2:24 PM Progress Notes signed by Paresh Prieto TOOL HONING MACHINE SET UP OPERATOR 12/09/2023 2:52 PM Progress Notes addendum by Paresh Prieto, TOOL HONING MACHINE SET UP OPERATOR , TOOL HONING MACHINE SET UP OPERATOR Eval and Treat Last Documented TOOL HONING MACHINE SET UP OPERATOR ASSESSMENT (most recent) TOOL HONING MACHINE SET UP OPERATOR Evaluation - 12/09/23 12:00:57 Cognition Orientation Oriented X4 (person, place, time, situation) TOOL HONING MACHINE SET UP OPERATOR SWALLOW STUDY (most recent) Clinical Swallow Study No documentation. TOOL HONING MACHINE SET UP OPERATOR TREATMENT (most recent) TOOL HONING MACHINE SET UP OPERATOR Treatment - 12/09/23 0803 Pain Assessment Pain Assessment 0-10 TOOL HONING MACHINE SET UP OPERATOR Notes 12/08/2023 9:36 AM Progress Notes signed [...] - 132 99 - 103 103 1200 NCIAL REPORTING ANALYST * Plan of Care - Emily Bellamy RN - 12/09/2023 8:52 AM FINANCIAL REPORTING ANALYST Problem: Discharge Planning Goal: Understanding discharge needs [...] protocol, safety maintained, call light within reach NCIAL REPORTING ANALYST * Plan of Care - Hilaria Dawson RN - 12/09/2023 7:28 AM CST gave written transfer report to Indira and JIMENA Mondragon for 7th floor via Teams. Call with any questions or concerns. Thank you Anjali Dawson RN, BSN, CCRN Registered Representative [phone] NCIAL REPORTING ANALYST * Significant Event - Bernard Casillas MD [...] MD Phone number to be reached at: [phone] ([facility]) NCIAL REPORTING ANALYST * Initial Assessments - Hilaria Dawson RN - 12/08/2023 3:00 PM FINANCIAL REPORTING ANALYST CM Initial Assessment Interview Note Information Obtained [...] 12/11/23 (12/08/23 1344) Health Insurance Coverage: HU[employer] MEDICARE/HU[employer]NA CHOICE MEDICARE PPO Prescription Coverage: Yes Pharmacy: [address] [facility] [address] Primary Care Provider: Wolfgang Serrano MD Prior [...] a week How often do you attend muslim or protestant services?: More than 4 times per year Do you belong to any clubs or organizations such as muslim groups, unions, fraternal or athletic groups, or [...] SDOH completed and pt denied any issues. 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 Plan to discharge home pending PT/OT recommendations. [employer] rep is spouse and transportation to be provided [...] Collaboration with patient, MD, direct care nurse, Shell Sorter, and other members of the health care team to assure needed interventions completed. 2. Return patient to optimal level of self-care post discharge. 3. Registered Representative will follow for Discharge Planning - interventions as needed 4. Anticipated level of care at discharge 5. Planned Discharge Disposition Anjali Dawson RN-BSN, CCRN Registered Representative [phone] NCIAL REPORTING ANALYST * Plan of Care - Doris Bran [...] control plan will improve 12/08/2023217 by Doris Brna RN Outcome: Ongoing 12/08/2023212 by Doris Bran [...] Goals for the Shift: VSS, neuro Summary: NCIAL REPORTING ANALYST documented in this encounter Plan of Treatment Upcoming Encounters Date Type Department Care Team (Latest Contact Info) Description 10/23/2024 10:00 AM FINANCIAL REPORTING ANALYST Hospital Encounter [facility] [address] [place] [id number] [place] [address] [address] 10/23/2024 10:00 AM FINANCIAL REPORTING ANALYST - 10/23/2024 1:00 PM FINANCIAL REPORTING ANALYST Surgery [facility] [address] [place] [id number] [place] [address] [place] [address] ARTHROPLASTY TOTAL KNEE LEFT Scheduled Procedures Name Priority Associated Diagnoses Date/Ti me ARTHROPLASTY TOTAL KNEE left knee osteoarthritis 10/23/2024 10:00 AM FINANCIAL REPORTING ANALYST ESOPHAGOGASTRODUODENOSCOPY Dysphagia, unspecified type documented as of this encounter Procedures Procedure Name Priority Date/Time Associated Diagnosis Comments GUAIAC OCCULT BLOOD, FECAL, NOT FOR NEOPLASM SCREENING STAT 12/14/2023 6:00 PM FINANCIAL REPORTING ANALYST COVID-19 CORONAVIRUS RNA Routine 12/14/2023 2:45 PM FINANCIAL REPORTING ANALYST EGFR Routine 12/14/2023 4:27 AM FINANCIAL REPORTING ANALYST DIFFERENTIAL AUTO Routine 12/14/2023 4:2 7 AM FINANCIAL REPORTING ANALYST CBC WITH AUTO DIFFERENTIAL Routine 12/14/2023 4:27 AM FINANCIAL REPORTING ANALYST BASIC METABOLIC PANEL Routine 12/14/2023 4:27 AM FINANCIAL REPORTING ANALYST EGFR Routine 12/13/2023 2:52 AM FINANCIAL REPORTING ANALYST DIFFERENTIAL AUTO Routine 12/13/2023 2:5 2 AM FINANCIAL REPORTING ANALYST CBC WITH AUTO DIFFERENTIAL Routine 12/13/2023 2:52 AM FINANCIAL REPORTING ANALYST BASIC METABOLIC PANEL Routine 12/13/2023 2:[address]LY[address] HEAD WO CONTRAST IP Routine 12/12/2023 1 1:24 PM FINANCIAL REPORTING ANALYST EGFR Routine 12/12/2023 4:20 AM FINANCIAL REPORTING ANALYST DIFFERENTIAL AUTO Routine 12/12/2023 4:2 0 AM FINANCIAL REPORTING ANALYST CBC WITH AUTO DIFFERENTIAL Routine 12/12/2023 4:20 AM FINANCIAL REPORTING ANALYST PHOSPHORUS Routine 12/12/2023 4:20 AM FINANCIAL REPORTING ANALYST MAGNESIUM Routine 12/12/2023 4:20 AM FINANCIAL REPORTING ANALYST BASIC METABOLIC PANEL Routine 12/12/2023 4:20 AM FINANCIAL REPORTING ANALYST EGFR Routine 12/11/2023 5:47 AM FINANCIAL REPORTING ANALYST DIFFERENTIAL AUTO Routine 12/11/2023 5:4 7 AM FINANCIAL REPORTING ANALYST CBC WITH AUTO DIFFERENTIAL Routine 12/11/2023 5:47 AM FINANCIAL REPORTING ANALYST PROTIME-INR Routine 12/11/2023 5:47 AM FINANCIAL REPORTING ANALYST PHOSPHORUS Routine 12/11/2023 5:47 AM FINANCIAL REPORTING ANALYST MAGNESIUM Routine 12/11/2023 5:47 AM FINANCIAL REPORTING ANALYST BASIC METABOLIC PANEL Routine 12/11/2023 5:47 AM FINANCIAL REPORTING ANALYST EGFR Routine 12/10/2023 2:54 AM FINANCIAL REPORTING ANALYST DIFFERENTIAL AUTO Routine 12/10/2023 2:5 4 AM FINANCIAL REPORTING ANALYST CBC WITH AUTO DIFFERENTIAL Routine 12/10/2023 2:54 AM FINANCIAL REPORTING ANALYST PHOSPHORUS Routine 12/10/2023 2:54 AM FINANCIAL REPORTING ANALYST MAGNESIUM Routine 12/10/2023 2:54 AM FINANCIAL REPORTING ANALYST BASIC METABOLIC PANEL Routine 12/10/2023 2:54 AM FINANCIAL REPORTING ANALYST EGFR Routine 12/09/2023 6:19 AM FINANCIAL REPORTING ANALYST DIFFERENTIAL AUTO Routine 12/09/2023 6:1 9 AM FINANCIAL REPORTING ANALYST CBC WITH AUTO DIFFERENTIAL Routine 12/09/2023 6:19 AM FINANCIAL REPORTING ANALYST PHOSPHORUS Routine 12/09/2023 6:19 AM FINANCIAL REPORTING ANALYST MAGNESIUM Routine 12/09/2023 6:19 AM FINANCIAL REPORTING ANALYST BASIC METABOLIC PANEL Routine 12/09/2023 6:19 AM FINANCIAL REPORTING ANALYST POCT GLUCOSE DEVICE Routine 12/08/2023 4 :35 PM FINANCIAL REPORTING ANALYST CT HEAD WO CONTRAST Critical/Life-T hreatening 12/08/2023 3:57 PM FINANCIAL REPORTING ANALYST MRI BRAIN WO CONTRAST ED Urgent/IP Urgent 12/08/2023 1:59 PM FINANCIAL REPORTING ANALYST CT HEAD WO CONTRAST ED Urgent/IP Urgent 12/08/2023 1:34 PM FINANCIAL REPORTING ANALYST TRANSTHORACIC ECHO (TTE) COMPLETE W DOPPLER/CF WO CONTRAST Routine 12/08/2023 1:30 PM FINANCIAL REPORTING ANALYST POCT GLUCOSE DEVICE Routine 12/08/2023 7 :26 AM FINANCIAL REPORTING ANALYST POCT GLUCOSE DEVICE Routine 12/08/2023 4 :43 AM FINANCIAL REPORTING ANALYST LIPID PANEL Routine 12/08/2023 4:10 AM FINANCIAL REPORTING ANALYST POCT GLUCOSE DEVICE Routine 12/08/2023 1 2:04 AM FINANCIAL REPORTING ANALYST CRITICAL CARE Routine 12/07/2023 10:02 PM FINANCIAL REPORTING ANALYST Acute CVA (cerebrovascular accident) (HCC) CALCIUM,IONIZED, WHOLE BLOOD Routine 12/07/2023 8:45 PM FINANCIAL REPORTING ANALYST EGFR Routine 12/07/2023 8:45 PM FINANCIAL REPORTING ANALYST DIFFERENTIAL AUTO Routine 12/07/2023 8:4 5 PM FINANCIAL REPORTING ANALYST CBC WITH AUTO DIFFERENTIAL Routine 12/07/2023 8:45 PM FINANCIAL REPORTING ANALYST FIBRINOGEN Timed 12/07/2023 8:45 PM FINANCIAL REPORTING ANALYST PHOSPHORUS Routine 12/07/2023 8:45 PM FINANCIAL REPORTING ANALYST MAGNESIUM Routine 12/07/2023 8:45 PM FINANCIAL REPORTING ANALYST HEMOGLOBIN A1C Routine 12/07/2023 8:45 PM FINANCIAL REPORTING ANALYST LIPID PANEL Routine 12/07/2023 8:45 PM FINANCIAL REPORTING ANALYST COMPREHENSIVE METABOLIC PANEL Routine 12/07/2023 8:45 PM FINANCIAL REPORTING ANALYST POCT GLUCOSE DEVICE Routine 12/07/2023 7 :57 PM FINANCIAL REPORTING ANALYST TROPONIN T HIGH-SENSITIVITY 6-HOUR Timed 12/07/2023 7:34 PM FINANCIAL REPORTING ANALYST TROPONIN T HIGH-SENSITIVITY 4-HR Timed 12/07/2023 5:58 PM FINANCIAL REPORTING ANALYST INFECTION PREVENTION MRSA ONLY (STAPHYLOCOCCUS AUREUS) PCR Routine 12/07/2023 5:58 PM FINANCIAL REPORTING ANALYST ECG 12-LEAD STAT 12/07/2023 5:20 PM FINANCIAL REPORTING ANALYST POCT GLUCOSE DEVICE Routine 12/07/2023 4 :52 PM FINANCIAL REPORTING ANALYST URINALYSIS AND REFLEX TO MICROSCOPIC AND CULTURE STAT 12/07/2023 3:22 PM FINANCIAL REPORTING ANALYST URINALYSIS, MICROSCOPIC ONLY STAT 12/07/2023 3:22 PM FINANCIAL REPORTING ANALYST TROPONIN T HIGH-SENSITIVITY 2-HOUR Timed 12/07/2023 2:50 PM FINANCIAL REPORTING ANALYST TROPONIN T HIGH-SENSITIVITY SERIES (BASELINE, 2HR, 4HR, 6HR) STAT 12/07/2023 1:30 PM FINANCIAL REPORTING ANALYST EGFR STAT 12/07/2023 1:30 PM FINANCIAL REPORTING ANALYST DIFFERENTIAL AUTO STAT 12/07/2023 1:3 0 PM FINANCIAL REPORTING ANALYST CBC WITH AUTO DIFFERENTIAL STAT 12/07/2023 1:30 PM FINANCIAL REPORTING ANALYST APTT STAT 12/07/2023 1:30 PM FINANCIAL REPORTING ANALYST PROTIME-INR STAT 12/07/2023 1:30 PM FINANCIAL REPORTING ANALYST COMPREHENSIVE METABOLIC PANEL STAT 12/07/2023 1:30 PM FINANCIAL REPORTING ANALYST ECG 12-LEAD STAT 12/07/2023 1:21 PM FINANCIAL REPORTING ANALYST CTA/CTP RAPID STROKE Critical/Life-T hreatening 12/07/2023 1:16 PM FINANCIAL REPORTING ANALYST IL CRITICAL CARE ILL/INJURED PATIENT INIT 30-74 MIN Routine 12/07/2023 1:02 PM FINANCIAL REPORTING ANALYST documented in this encounter Results * Guaiac occult blood, fecal, non-neoplasm (12/14/2023 6:00 PM FINANCIAL REPORTING ANALYST) Guaiac occult blood, fecal Negative Negative Stool 12/14/2023 6:00 PM FINANCIAL REPORTING ANALYST 12/15/2023 10:26 AM FINANCIAL REPORTING ANALYST Zheng Veras [employer] ENGINE[employer] LAB BODY FLUIDS AND STOOL S ORDERABLES Final Result [facility] [address] Department [place] [address] * COVID-19 Coronavirus RNA Nasopharyngeal (12/14/2023 2:45 PM FINANCIAL REPORTING ANALYST) COVID-19 RNA Negative Negative [facility] Nasopharyngeal 12/14/2023 2: 45 PM FINANCIAL REPORTING ANALYST 12/14/2023 4:17 PM FINANCIAL REPORTING ANALYST Narrative [facility] FISHER - 12/14/2023 5:02 PM FINANCIAL REPORTING ANALYST Is the patient experiencing any symptoms consistent with COVID (eg. Fever, cough, shortness of breath)?->No What is the reason for testing?->Screening for semi-private room placement ??Interpretive data: Synonyms for this test include: PCR and NAAT . ??This test is performed using the [employer] Xpert Xpress plus assay. This is a [...] G ENERAL ORDERABLES Final Result [facility] [id number] Department [place] [address] * eGFR (12/14/2023 4:27 AM FINANCIAL REPORTING ANALYST) eGFR 67 mL/min/1. 73 m2 [facility] FISHER [...] last reviewed 2021. Blood 12/14/2023 4:27 AM FINANCIAL REPORTING ANALYST 12/14/2023 4:48 AM FINANCIAL REPORTING ANALYST Maxi Carrion MD LAB BLOOD ORDERABLES Fin al Result [facility] [id number] Department [place] [address] * (ABNORMAL) Differential, auto (12/14/2023 4:27 AM FINANCIAL REPORTING ANALYST) Neutrophil abs 4.5 1.5 - 6.5 K/cumm [facility] Imm gran abs 0.0 0.0 - 0.1 K/cumm [facility] Lymphocyte abs 2.4 0.8 - 3.3 K/cumm [facility] Monocyte abs 1.0(H) 0.2 - 0.8 K/cumm [facility] Eosinophil abs 0.4 0.0 - 0.5 K/cumm [facility] Basophil abs 0.1 0.0 - 0.1 K/cumm [facility] Neutrophil pct 53.9 % [facility] Comment: Interpretive Data Percent cell count reference ranges are not reported, since discordance with absolute values may lead to misinterpretation of CBC data. Current Interpretive Data was last revised on 2018. Imm gran pct 0.5 % [facility] Comment: Interpretive Data Percent cell count reference ranges are not reported, since discordance with absolute values may lead to misinterpretation of CBC data. Current Interpretive Data was last revised on 2018. Lymphocyte pct 28.5 % [facility] Comment: Interpretive Data Percent cell count reference ranges are not reported, since discordance with absolute values may lead to misinterpretation of CBC data. Current Interpretive Data was last revised on 2018. Monocyte pct 11.9 % [facility] Comment: Interpretive Data Percent cell count reference ranges are not reported, since discordance with absolute values may lead to misinterpretation of CBC data. Current Interpretive Data was last revised on 2018. Eosinophil pct 4.2 % [facility] Comment: Interpretive Data Percent cell count [...] revised on 2018. Blood 12/14/2023 4:27 AM FINANCIAL REPORTING ANALYST 12/14/2023 4:48 AM FINANCIAL REPORTING ANALYST Maxi Carrion MD LAB BLOOD ORDERABLES Fin al Result [facility] [address] Department [place] [address] * Basic metabolic panel (12/14/2023 4:27 AM FINANCIAL REPORTING ANALYST) Sodium 138 135 - 145 mmol/L [facility] Potassium, pl 4.2 3.3 - 4.9 mmol/L [facility] Chloride 104 97 - 110 mmol/L [facility] CO2 24 22 - 32 mmol/L [facility] Anion gap 10 2 - 15 mmol/L [facility] BUN 23 6 - 25 mg/dL [facility] Creatinine 1.12 0.80 - 1.30 mg/dL [facility] [...] 10.3 mg/dL [facility] Blood 12/14/2023 4:27 AM FINANCIAL REPORTING ANALYST 12/14/2023 4:48 AM FINANCIAL REPORTING ANALYST Bernard Casillas MD LAB BLOOD ORDERABLES Final R esult Performing Organization Address [facility] de Phone Number [facility] [address] Department [place] [place] [address] * (ABNORMAL) CBC with auto differential (12/14/2023 4:27 AM FINANCIAL REPORTING ANALYST) WBC 8.3 3.8 - 9.9 K/cumm [facility] Hgb 13.6 13.0 - 17.5 g/dL [facility] CH Hct 41.8 38.9 - 50.3 % [facility] Plt 252 150 - 400 K/cumm [facility] MPV 10.2 9.1 - 12.3 fL [facility] RBC 4.27(L) 4.30 - 5.80 M/cumm [facility] CH MCV 97.9(H) 81.3 - 96.4 fL [facility] CH MCH 31.9 27.1 - 33.3 [address] [facility] MCHC 32.5 32.3 - 35.7 g/dL [facility] CH RDW CV 13.2 11.1 - 14.9 % [facility] CH RDW SD 46.9 35.7 - 48.1 fL [facility] CH NRBC abs 0.00 0.00 - 0.01 K/cumm [facility] CH Blood 12/14/2023 4:27 AM FINANCIAL REPORTING ANALYST 12/14/2023 4:48 AM FINANCIAL REPORTING ANALYST Bernard Casillas MD LAB BLOOD ORDERABLES Final R esult Performing Organization Address [facility] de Phone Number [facility] [address] Department [place] [address] * eGFR (12/13/2023 2:52 AM FINANCIAL REPORTING ANALYST) Pathologist [facility] eGFR 60 mL/min/1. 73 m2 [facility] Comment: Interpretive Data Reference Interval Normal ?>/= [...] last reviewed 2021. Blood 12/13/2023 2:52 AM FINANCIAL REPORTING ANALYST 12/13/2023 4:09 AM FINANCIAL REPORTING ANALYST us Maxi Carrion MD LAB BLOOD ORDERABLES Fin al Result [facility] [address] Department [place] [address] * (ABNORMAL) Differential, auto (12/13/2023 2:52 AM FINANCIAL REPORTING ANALYST) Neutrophil abs 5.2 1.5 - 6.5 K/cumm [facility] Imm gran abs 0.1 0.0 - 0.1 K/cumm [facility] Lymphocyte abs 2.7 0.8 - 3.3 K/cumm [facility] Monocyte abs 1.0(H) 0.2 - 0.8 K/cumm [facility] Eosinophil abs 0.3 0.0 - 0.5 K/cumm [facility] Basophil abs 0.1 0.0 - 0.1 K/cumm [facility] Neutrophil pct 55.7 % [facility] Comment: Interpretive Data Percent cell count [...] on 2018. Basophil pct 0.8 % [facility] Comment: Interpretive Data Percent cell count reference ranges are not reported, since discordance with absolute values may lead to misinterpretation of CBC data. Current Interpretive Data was last revised on 2018. Blood 12/13/2023 2:52 AM FINANCIAL REPORTING ANALYST 12/13/2023 4:09 AM FINANCIAL REPORTING ANALYST Maxi Carrion MD LAB BLOOD ORDERABLES Fin al Result [facility] [address] Department [place] [address] * Basic metabolic panel (12/13/2023 2:52 AM FINANCIAL REPORTING ANALYST) Sodium 138 135 - 145 mmol/L [facility] Potassium, pl 4.4 3.3 - 4.9 mmol/L [facility] Chloride 103 97 - 110 mmol/L [facility] CO2 24 22 - 32 mmol/L [facility] Anion gap 11 2 - 15 mmol/L [facility] BUN 24 6 - 25 mg/dL [facility] Creatinine 1.22 0.80 - 1.30 mg/dL [facility] Glucose 106 70 - 199 mg/dL [facility] Comment: Interpretive Data Fasting glucose >/= [...] 2022. Calcium 9.2 8.5 - 10.3 mg/dL [facility] Blood 12/13/2023 2:52 AM FINANCIAL REPORTING ANALYST 12/13/2023 4:09 AM FINANCIAL REPORTING ANALYST us Bernard Casillas MD LAB BLOOD ORDERABLES Final R esult [facility] [id number] Department [place] [address] * (ABNORMAL) CBC with auto differential (12/13/2023 2:52 AM FINANCIAL REPORTING ANALYST) WBC 9.4 3.8 - 9.9 K/cumm [facility] Hgb 13.8 13.0 - 17.5 g/dL [facility] Hct 41.7 38.9 - 50.3 % [facility] Plt 255 150 - 400 K/cumm [facility] MPV 10.8 9.1 - 12.3 fL [facility] RBC 4.29(L) 4.30 - 5.80 M/cumm [facility] MCV 97.2(H) 81.3 - 96.4 fL [facility] MCH 32.2 27.1 - 33.3 pg [facility] MCHC 33.1 32.3 - 35.7 g/dL [facility] RDW CV 13.0 11.1 - 14.9 % [facility] RDW SD 46.3 35.7 - 48.1 fL [facility] NRBC abs 0.00 0.00 - 0.01 K/cumm [facility] Blood 12/13/2023 2:52 AM FINANCIAL REPORTING ANALYST 12/13/2023 4:09 AM FINANCIAL REPORTING ANALYST us Bernard Casillas MD LAB BLOOD ORDERABLES Final R esult [facility] [address] Department [place] [address] * CT Head WO Contrast (12/12/2023 11:24 PM FINANCIAL REPORTING ANALYST) Anatomical Region Laterality Modality Head and Neck N/A Computed Tomogra phy 12/13/2023 6:22 AM FINANCIAL REPORTING ANALYST Impressions 12/13/2023 6:22 AM FINANCIAL REPORTING ANALYST 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 ??No acute findings. ??Atrophy and small vessel disease. Electronically signed by: Beka Draper M.D. Narrative 12/13/2023 6:22 AM FINANCIAL REPORTING ANALYST EXAMINATION: CT head without contrast HISTORY: 78-year-old man stroke follow-up. TECHNIQUE: Noncontrast CT of the brain was performed with images acquired from skull base to vertex. COMPARISON: Compared to study of 12/08/2023, and the MRI of 12/08/2023,. FINDINGS: Director Of Therapy Services radiograph normal. ??Transaxial images demonstrate stable involutional [...] 12/08/2023, and the MRI of 12/08/2023,. FINDINGS: Director Of Therapy Services radiograph normal. Transaxial images demonstrate stable involutional [...] by: Beka Draper M.D. Zheng Veras NP IM CT PROCEDURES Final R esult * eGFR (12/12/2023 4:20 AM FINANCIAL REPORTING ANALYST) Pathologist [facility] eGFR 65 mL/min/1. 73 m2 [facility] [...] last reviewed 2021. Blood 12/12/2023 4:20 AM FINANCIAL REPORTING ANALYST 12/12/2023 4:34 AM FINANCIAL REPORTING ANALYST us Maxi Carrion MD LAB BLOOD ORDERABLES Fin al Result [facility] [address] Department [place] [address] * (ABNORMAL) Differential, auto (12/12/2023 4:20 AM FINANCIAL REPORTING ANALYST) Neutrophil abs 4.7 1.5 - 6.5 K/cumm [facility] Imm gran abs 0.0 0.0 - 0.1 K/cumm [facility] [facility] Lymphocyte abs 2.5 0.8 - 3.3 K/cumm [facility] Monocyte abs 0.9(H) 0.2 - 0.8 K/cumm [facility] Eosinophil abs 0.3 0.0 - 0.5 K/cumm [facility] Basophil abs 0.1 0.0 - 0.1 K/cumm [facility] Neutrophil pct 55.0 % [facility] Comment: Interpretive Data Percent cell count reference ranges are not reported, since discordance with absolute values may lead to misinterpretation of CBC data. Current Interpretive Data was last revised on 2018. Imm gran pct 0.5 % [facility] Comment: Interpretive Data Percent cell count reference ranges are not reported, since discordance with absolute values may lead to misinterpretation of CBC data. Current Interpretive Data was last revised on 2018. Lymphocyte pct 29.3 % [facility] Comment: Interpretive Data Percent cell count reference ranges are not reported, since discordance with absolute values may lead to misinterpretation of CBC data. Current Interpretive Data was last revised on 2018. Monocyte pct 10.6 % [facility] Comment: Interpretive Data Percent cell count reference ranges are not reported, since discordance with absolute values may lead to misinterpretation of CBC data. Current Interpretive Data was last revised on 2018. Eosinophil pct 3.9 % [facility] Comment: Interpretive Data Percent cell count reference ranges are not reported, since discordance with absolute values may lead to misinterpretation of CBC data. Current Interpretive Data was last revised on 2018. Basophil pct 0.7 % [facility] Comment: Interpretive Data Percent cell count reference ranges are not reported, since discordance with absolute values may lead to misinterpretation of CBC data. Current Interpretive Data was last revised on 2018. Blood 12/12/2023 4:20 AM FINANCIAL REPORTING ANALYST 12/12/2023 4:33 AM FINANCIAL REPORTING ANALYST Maxi Carrion MD LAB BLOOD ORDERABLES Fin al Result Performing Organization Address City/[facility] Co de Phone Number [facility] [address] [place] [address] * Phosphorus (12/12/2023 4:20 AM FINANCIAL REPORTING ANALYST) Phosphorus, pl 3.2 2.3 - 4.5 mg/dL [facility] Blood 12/12/2023 4:20 AM FINANCIAL REPORTING ANALYST 12/12/2023 4:34 AM FINANCIAL REPORTING ANALYST Maxi Carrion MD LAB BLOOD ORDERABLES Fin al Result Performing Organization Address [facility] de Phone Number [facility] [address] [facility] [place] [address] * Magnesium (12/12/2023 4:20 AM FINANCIAL REPORTING ANALYST) Magnesium 1.8 1.4 - 2.5 mg/dL [facility] Blood 12/12/2023 4:20 AM FINANCIAL REPORTING ANALYST 12/12/2023 4:34 AM FINANCIAL REPORTING ANALYST Maxi Carrion MD LAB BLOOD ORDERABLES Fin al Result Performing Organization Address [facility] Co de Phone Number [facility] [phone] [address] [facility] [place] [address] * Basic metabolic panel (12/12/2023 4:20 AM FINANCIAL REPORTING ANALYST) Sodium 138 135 - 145 mmol/L [facility] Potassium, pl 4.8 3.3 - 4.9 mmol/L [facility] Chloride 105 97 - 110 mmol/L [facility] CO2 24 22 - 32 mmol/L [facility] Anion gap 9 2 - 15 mmol/L [facility] BUN 18 6 - 25 mg/dL [facility] Creatinine 1.14 0.80 - 1.30 mg/dL [facility] Glucose 105 70 - 199 mg/dL [facility] Comment: Interpretive Data Fasting glucose >/= [...] 2022. Calcium 9.0 8.5 - 10.3 mg/dL [facility] Blood 12/12/2023 4:20 AM FINANCIAL REPORTING ANALYST 12/12/2023 4:34 AM FINANCIAL REPORTING ANALYST us Bernard Casillas MD LAB BLOOD ORDERABLES Final R esult [facility] [address] [address] Department [place] [address] * (ABNORMAL) CBC with auto differential (12/12/2023 4:20 AM FINANCIAL REPORTING ANALYST) [facility] WBC 8.5 3.8 - 9.9 K/cumm [facility] Hgb 13.5 13.0 - 17.5 g/dL [facility] Hct 41.8 38.9 - 50.3 % [facility] Plt 222 150 - 400 K/cumm [facility] MPV 10.1 9.1 - 12.3 fL [facility] RBC 4.24(L) 4.30 - 5.80 M/cumm [facility] MCV 98.6(H) 81.3 - 96.4 fL [facility] MCH 31.8 27.1 - 33.3 pg [facility] MCHC 32.3 32.3 - 35.7 g/dL [facility] RDW CV 12.9 11.1 - 14.9 % [facility] RDW SD 46.5 35.7 - 48.1 fL [facility] NRBC abs 0.00 0.00 - 0.01 K/cumm [facility] Blood 12/12/2023 4:20 AM FINANCIAL REPORTING ANALYST 12/12/2023 4:33 AM FINANCIAL REPORTING ANALYST us Bernard Casillas MD LAB BLOOD ORDERABLES Final R esult [facility] [address] [address] Department [place] [address] * eGFR (12/11/2023 5:47 AM FINANCIAL REPORTING ANALYST) eGFR 73 mL/min/1. 73 m2 [facility] Comment: [...] data was last reviewed 2021. Blood 12/11/2023 5:47 AM FINANCIAL REPORTING ANALYST 12/11/2023 6:28 AM FINANCIAL REPORTING ANALYST us Maxi Carrion MD LAB BLOOD ORDERABLES Fin al Result [facility] [address] Department [place] [address] * (ABNORMAL) Differential, auto (12/11/2023 5:47 AM FINANCIAL REPORTING ANALYST) Neutrophil abs 5.5 1.5 - 6.5 K/cumm [facility] Imm gran abs 0.0 0.0 - 0.1 K/cumm [facility] Lymphocyte abs 2.4 0.8 - 3.3 K/cumm [facility] Monocyte abs 0.9(H) 0.2 - 0.8 K/cumm [facility] Eosinophil abs 0.2 0.0 - 0.5 K/cumm [facility] Basophil abs 0.0 0.0 - 0.1 K/cumm [facility] Neutrophil pct 61.2 % [facility] Comment: Interpretive Data Percent cell count reference ranges are not reported, since discordance with absolute values may lead to misinterpretation of CBC data. Current Interpretive Data was last revised on 2018. Imm gran pct 0.4 % [facility] Comment: Interpretive Data Percent cell count reference ranges are not reported, since discordance with absolute values may lead to misinterpretation of CBC data. Current Interpretive Data was last revised on 2018. Lymphocyte pct 26.4 % [facility] Comment: Interpretive Data Percent cell count reference ranges are not reported, since discordance with absolute values may lead to misinterpretation of CBC data. Current Interpretive Data was last revised on 2018. Monocyte pct 9.6 % [facility] Comment: Interpretive Data Percent cell count reference ranges are not reported, since discordance with absolute values may lead to misinterpretation of CBC data. Current Interpretive Data was last revised on 2018. Eosinophil pct 2.0 % [facility] Comment: Interpretive Data Percent cell count reference ranges are not reported, since discordance with absolute values may lead to misinterpretation of CBC data. Current Interpretive Data was last revised on 2018. Basophil pct 0.4 % [facility] Comment: Interpretive Data Percent cell count reference ranges are not reported, since discordance with absolute values may lead to misinterpretation of CBC data. Current Interpretive Data was last revised on 2018. Blood 12/11/2023 5:47 AM FINANCIAL REPORTING ANALYST 12/11/2023 6:28 AM FINANCIAL REPORTING ANALYST Maxi Carrion MD LAB BLOOD ORDERABLES Fin al Result Performing Organization Address [facility] Co de Phone Number [facility] [phone] [facility] [employer] [place], [place] [id number] * Protime-INR (12/11/2023 5:47 AM FINANCIAL REPORTING ANALYST) PT 12.7 10.3 - 13.7 sec [facility] INR 1.11 0.90 - 1.20 [facility] Comment: Interpretive data Oral anticoagulant therapeutic ranges: Venous thromboembolism prophylaxis or treatment: 2.0-3.0 CARDIOLOGY Standard range: 2.0-3.0 High-intensity range: 2.5-3.5 Refer to indication-specific guidelines for appropriate target ranges for prosthetic heart valve replacement. Current interpretive data was last revised on 2019. Blood 12/11/2023 5:47 AM FINANCIAL REPORTING ANALYST 12/11/2023 6:29 AM FINANCIAL REPORTING ANALYST Kristen Isabel NP LAB BLOOD ORDERAB LES Final Result Performing Organization Address [facility] Co de Phone Number [facility] [phone] [address] [facility] [place] [address] * Phosphorus (12/11/2023 5:47 AM FINANCIAL REPORTING ANALYST) Phosphorus, pl 3.4 2.3 - 4.5 mg/dL [facility] Blood 12/11/2023 5:47 AM FINANCIAL REPORTING ANALYST 12/11/2023 6:28 AM FINANCIAL REPORTING ANALYST Maxi Carrion MD LAB BLOOD ORDERABLES Fin al Result Performing Organization Address [facility] Co de Phone Number [facility] [address] [address] [facility] [place] [address] * Magnesium (12/11/2023 5:47 AM FINANCIAL REPORTING ANALYST) Magnesium 1.9 1.4 - 2.5 mg/dL [facility] Blood 12/11/2023 5:47 AM FINANCIAL REPORTING ANALYST 12/11/2023 6:28 AM FINANCIAL REPORTING ANALYST Maxi Carrion MD LAB BLOOD ORDERABLES Fin al Result Performing Organization Address City/[facility] Co de Phone Number [facility] [address] Department [place] [address] * Basic metabolic panel (12/11/2023 5:47 AM FINANCIAL REPORTING ANALYST) Sodium 138 135 - 145 mmol/L [facility] Potassium, pl 4.5 3.3 - 4.9 mmol/L [facility] Chloride 104 97 - 110 mmol/L [facility] CO2 25 22 - 32 mmol/L [facility] Anion gap 9 2 - 15 mmol/L [facility] BUN 19 6 - 25 mg/dL [facility] Creatinine 1.04 0.80 - 1.30 mg/dL [facility] Glucose 116 70 - 199 mg/dL [facility] Comment: Interpretive Data Fasting glucose >/= [...] 9.1 8.5 - 10.3 mg/dL [facility] Blood 12/11/2023 5:47 AM FINANCIAL REPORTING ANALYST 12/11/2023 6:28 AM FINANCIAL REPORTING ANALYST Bernard Casillas MD LAB BLOOD ORDERABLES Final R esult Performing Organization Address City/[facility]/ZIP Co de Phone Number [facility] [address] Department [place] [address] * (ABNORMAL) CBC with auto differential (12/11/2023 5:47 AM FINANCIAL REPORTING ANALYST) Pathologist [facility] WBC 9.1 3.8 - 9.9 K/cumm [facility] Hgb 13.6 13.0 - 17.5 g/dL [facility] Hct 41.5 38.9 - 50.3 % [facility] Plt 220 150 - 400 K/cumm [facility] MPV 10.7 9.1 - 12.3 fL [facility] RBC 4.26(L) 4.30 - 5.80 M/cumm [facility] MCV 97.4(H) 81.3 - 96.4 fL [facility] MCH 31.9 27.1 - 33.3 pg [facility] MCHC 32.8 32.3 - 35.7 g/dL [facility] RDW CV 12.9 11.1 - 14.9 % [facility] RDW SD 45.8 35.7 - 48.1 fL [facility] NRBC abs 0.00 0.00 - 0.01 K/cumm [facility] Blood 12/11/2023 5:47 AM FINANCIAL REPORTING ANALYST 12/11/2023 6:28 AM FINANCIAL REPORTING ANALYST us Bernard aCsillas MD LAB BLOOD ORDERABLES Final R esult [facility] [id number] Department of Laboratories [place], [place] [id number] * eGFR (12/10/2023 2:54 AM FINANCIAL REPORTING ANALYST) Pathologist [facility] eGFR 67 mL/min/1. 73 m2 [facility] Comment: Interpretive Data Reference Interval Normal [...] last reviewed 2021. Blood 12/10/2023 2:54 AM FINANCIAL REPORTING ANALYST 12/10/2023 3:52 AM FINANCIAL REPORTING ANALYST us Maxi Carrion MD LAB BLOOD ORDERABLES Fin al Result [facility] [id number] Department [place] [address] * Differential, auto (12/10/2023 2:54 AM FINANCIAL REPORTING ANALYST) Neutrophil abs 4.0 1.5 - 6.5 K/cumm [facility] Imm gran abs 0.0 0.0 - 0.1 K/cumm [facility] Lymphocyte abs 2.2 0.8 - 3.3 K/cumm [facility] Monocyte abs 0.8 0.2 - 0.8 K/cumm [facility] Eosinophil abs 0.3 0.0 - 0.5 K/cumm [facility] Basophil abs 0.0 0.0 - 0.1 K/cumm [facility] Neutrophil pct 55.1 % [facility] Comment: Interpretive Data Percent cell count reference ranges are not reported, since discordance with absolute values may lead to misinterpretation of CBC data. Current Interpretive Data was last revised on 2018. Imm gran pct 0.3 % [facility] Comment: Interpretive Data Percent cell count reference ranges are not reported, since discordance with absolute values may lead to misinterpretation of CBC data. Current Interpretive Data was last revised on 2018. Lymphocyte pct 29.8 % [facility] Comment: Interpretive Data Percent cell count reference ranges are not reported, since discordance with absolute values may lead to misinterpretation of CBC data. Current Interpretive Data was last revised on 2018. Monocyte pct 10.3 % [facility] Comment: Interpretive Data Percent cell count reference ranges are not reported, since discordance with absolute values may lead to misinterpretation of CBC data. Current Interpretive Data was last revised on 2018. Eosinophil pct 4.0 % [facility] Comment: Interpretive Data Percent cell count reference ranges are not reported, since discordance with absolute values may lead to misinterpretation of CBC data. Current Interpretive Data was last revised on 2018. Basophil pct 0.5 % [facility] Comment: Interpretive Data Percent cell count reference ranges are not reported, since discordance with absolute values may lead to misinterpretation of CBC data. Current Interpretive Data was last revised on 2018. Blood 12/10/2023 2:54 AM FINANCIAL REPORTING ANALYST 12/10/2023 3:51 AM FINANCIAL REPORTING ANALYST Maxi Carrion MD LAB BLOOD ORDERABLES Fin al Result Performing Organization Address [facility] Co de Phone Number [facility] [phone] [address] [place] [address] * Phosphorus (12/10/2023 2:54 AM FINANCIAL REPORTING ANALYST) Phosphorus, pl 3.2 2.3 - 4.5 mg/dL [facility] Blood 12/10/2023 2:54 AM FINANCIAL REPORTING ANALYST 12/10/2023 3:52 AM FINANCIAL REPORTING ANALYST Maxi Carrion MD LAB BLOOD ORDERABLES Fin al Result Performing Organization Address City/[facility]/ZIP Co de Phone Number [facility] [address] Department [place] [address] * Magnesium (12/10/2023 2:54 AM FINANCIAL REPORTING ANALYST) Magnesium 1.9 1.4 - 2.5 mg/dL [facility] Blood 12/10/2023 2:54 AM FINANCIAL REPORTING ANALYST 12/10/2023 3:52 AM FINANCIAL REPORTING ANALYST Maxi Carrion MD LAB BLOOD ORDERABLES Fin al Result [facility] [address] [address] Department [place] [address] * Basic metabolic panel (12/10/2023 2:54 AM FINANCIAL REPORTING ANALYST) Sodium 140 135 - 145 mmol/L [facility] Potassium, pl 4.2 3.3 - 4.9 mmol/L [facility] Chloride 106 97 - 110 mmol/L [facility] CO2 25 22 - 32 mmol/L [facility] Anion gap 9 2 - 15 mmol/L [facility] BUN 17 6 - 25 mg/dL [facility] Creatinine 1.12 0.80 - 1.30 mg/dL [facility] Glucose 100 70 - 199 mg/dL [facility] Comment: Interpretive Data Fasting glucose >/= [...] 2022. Calcium 8.8 8.5 - 10.3 mg/dL [facility] Blood 12/10/2023 2:54 AM FINANCIAL REPORTING ANALYST 12/10/2023 3:52 AM FINANCIAL REPORTING ANALYST Bernard Casillas MD LAB BLOOD ORDERABLES Final R esult [facility] [address] [address] [place] [address] * (ABNORMAL) CBC with auto differential (12/10/2023 2:54 AM FINANCIAL REPORTING ANALYST) Pathologist [facility] WBC 7.3 3.8 - 9.9 K/cumm [facility] Hgb 12.8(L) 13.0 - 17.5 g/dL [facility] Hct 38.8(L) 38.9 - 50.3 % [facility] Plt 228 150 - 400 K/cumm [facility] MPV 10.9 9.1 - 12.3 fL [facility] RBC 3.97(L) 4.30 - 5.80 M/cumm [facility] MCV 97.7(H) 81.3 - 96.4 fL [facility] MCH 32.2 27.1 - 33.3 pg [facility] MCHC 33.0 32.3 - 35.7 g/dL [facility] RDW CV 13.0 11.1 - 14.9 % [facility] RDW SD 46.5 35.7 - 48.1 fL [facility] NRBC abs 0.00 0.00 - 0.01 K/cumm [facility] Blood 12/10/2023 2:54 AM FINANCIAL REPORTING ANALYST 12/10/2023 3:51 AM FINANCIAL REPORTING ANALYST Bernard Casillas MD LAB BLOOD ORDERABLES Final R esult [facility] [address] Department [place] [address] * eGFR (12/09/2023 6:19 AM FINANCIAL REPORTING ANALYST) Pathologist [facility] eGFR 65 mL/min/1. 73 m2 [facility] Comment: Interpretive Data Reference Interval Normal [...] last reviewed 2021. Blood 12/09/2023 6:19 AM FINANCIAL REPORTING ANALYST 12/09/2023 6:35 AM FINANCIAL REPORTING ANALYST us Maxi Carrion MD LAB BLOOD ORDERABLES Fin al Result [facility] [address] [address] Department [place] [address] * Differential, auto (12/09/2023 6:19 AM FINANCIAL REPORTING ANALYST) Neutrophil abs 5.5 1.5 - 6.5 K/cumm [facility] Imm gran abs 0.1 0.0 - 0.1 K/cumm [facility] Lymphocyte abs 2.0 0.8 - 3.3 K/cumm [facility] Monocyte abs 0.7 0.2 - 0.8 K/cumm [facility] Eosinophil abs 0.3 0.0 - 0.5 K/cumm [facility] Basophil abs 0.1 0.0 - 0.1 K/cumm [facility] Neutrophil pct 64.1 % [facility] Comment: Interpretive [...] revised on 2018. Lymphocyte pct 23.6 % [facility] Comment: Interpretive Data Percent cell count reference ranges are not reported, since discordance with absolute values may lead to misinterpretation of CBC data. Current Interpretive Data was last revised on 2018. Monocyte pct 8.2 % [facility] Comment: Interpretive Data Percent cell count reference ranges are not reported, since discordance with absolute values may lead to misinterpretation of CBC data. Current Interpretive Data was last revised on 2018. Eosinophil pct 2.9 % [facility] Comment: Interpretive Data Percent cell count reference ranges are not reported, since discordance with absolute values may lead to misinterpretation of CBC data. Current Interpretive Data was last revised on 2018. Basophil pct 0.6 % [facility] Comment: Interpretive Data Percent cell count reference ranges are not reported, since discordance with absolute values may lead to misinterpretation of CBC data. Current Interpretive Data was last revised on 2018. Blood 12/09/2023 6:19 AM FINANCIAL REPORTING ANALYST 12/09/2023 6:35 AM FINANCIAL REPORTING ANALYST Maxi Carrion MD LAB BLOOD ORDERABLES Fin al Result Performing Organization Address [facility] Co de Phone Number [facility] [phone] [address] [facility] [place] [address] * Phosphorus (12/09/2023 6:19 AM FINANCIAL REPORTING ANALYST) Pathologist [facility] Phosphorus, pl 3.1 2.3 - 4.5 mg/dL [facility] Blood 12/09/2023 6:19 AM FINANCIAL REPORTING ANALYST 12/09/2023 6:35 AM FINANCIAL REPORTING ANALYST Maxi Carrion MD LAB BLOOD ORDERABLES Fin al Result Performing Organization Address [facility] Co de Phone Number [facility] [address] [address] Department [place] [address] * Magnesium (12/09/2023 6:19 AM FINANCIAL REPORTING ANALYST) Pathologist [facility] Magnesium 1.9 1.4 - 2.5 mg/dL [facility] Blood 12/09/2023 6:19 AM FINANCIAL REPORTING ANALYST 12/09/2023 6:35 AM FINANCIAL REPORTING ANALYST Maxi Carrion MD LAB BLOOD ORDERABLES Fin al Result Performing Organization Address City/[facility]/ZIP Co de Phone Number [facility] [address] Department [place] [address] * Basic metabolic panel (12/09/2023 6:19 AM FINANCIAL REPORTING ANALYST) [facility] Sodium 140 135 - 145 mmol/L [facility] Potassium, pl 4.2 3.3 - 4.9 mmol/L [facility] Chloride 106 97 - 110 mmol/L [facility] CO2 27 22 - 32 mmol/L [facility] Anion gap 7 2 - 15 mmol/L [facility] BUN 18 6 - 25 mg/dL [facility] Creatinine 1.14 0.80 - 1.30 mg/dL [facility] Glucose 117 70 - 199 mg/dL [facility] Comment: [...] 10.3 mg/dL [facility] Blood 12/09/2023 6:19 AM FINANCIAL REPORTING ANALYST 12/09/2023 6:35 AM FINANCIAL REPORTING ANALYST us Bernard Casillas MD LAB BLOOD ORDERABLES Final R esult [facility] [address] [address] Department [place] [address] * (ABNORMAL) CBC with auto differential (12/09/2023 6:19 AM FINANCIAL REPORTING ANALYST) WBC 8.6 3.8 - 9.9 K/cumm [facility] Hgb 13.1 13.0 - 17.5 g/dL [facility] Hct 40.3 38.9 - 50.3 % [facility] Plt 210 150 - 400 K/cumm [facility] MPV 10.4 9.1 - 12.3 fL [facility] RBC 4.08(L) 4.30 - 5.80 M/cumm [facility] MCV 98.8(H) 81.3 - 96.4 fL [facility] MCH 32.1 27.1 - 33.3 pg [facility] MCHC 32.5 32.3 - 35.7 g/dL [facility] RDW CV 13.1 11.1 - 14.9 % [facility] RDW SD 47.3 35.7 - 48.1 fL [facility] NRBC abs 0.00 0.00 - 0.01 K/cumm [facility] Blood 12/09/2023 6:19 AM FINANCIAL REPORTING ANALYST 12/09/2023 6:35 AM FINANCIAL REPORTING ANALYST us Bernard Casillas MD LAB BLOOD ORDERABLES Final R esult [facility] [address] [address] [place] [address] * POCT glucose (12/08/2023 4:35 PM FINANCIAL REPORTING ANALYST) Glucose, POC 109 70 - 199 mg/dL [facility] Blood 12/08/2023 4:35 PM FINANCIAL REPORTING ANALYST 12/08/2023 4:35 PM FINANCIAL REPORTING ANALYST Maxi Carrion MD LAB POCT ORDERABLES - DE VICE Final Result Performing Organization Address [facility]/ZIP Co de Phone Number [facility] [address] [facility] [place] [address] * CT Head WO Contrast (12/08/2023 3:57 PM FINANCIAL REPORTING ANALYST) Anatomical Region Laterality Modality Head and Neck N/A Computed Tomogra phy 12/08/2023 4:05 PM FINANCIAL REPORTING ANALYST Impressions 12/08/2023 4:05 PM FINANCIAL REPORTING ANALYST 1. ??No definitive acute intracranial findings. 2. ??Chronic microvascular ischemic changes and volume loss. Electronically signed by: Jhonny Smallwood II, D.O. Narrative 12/08/2023 4:05 PM FINANCIAL REPORTING ANALYST EXAMINATION: CT HEAD WO CONTRAST DATE: 12/08/2023 [...] Jhonny Smallwood II, D.O. 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 ??Underlying atrophy and small vessel disease. ??No hemorrhagic changes identified Electronically signed by: Estelita Evans 12/08/2023 2:11 PM FINANCIAL REPORTING ANALYST EXAMINATION: MRI BRAIN WO CONTRAST HISTORY: Stroke [...] images demonstrate normal flow voids within the [place] of [place]. ??The brainstem and cerebellar hemispheres [...] images demonstrate normal flow voids within the [place] of [place]. The brainstem and cerebellar hemispheres [...] CT Head WO Contrast (12/08/2023 1:34 PM FINANCIAL REPORTING ANALYST) Anatomical Region Laterality Modality Head and Neck N/A Computed Tomogra phy 12/08/2023 1:39 PM FINANCIAL REPORTING ANALYST Impressions 12/08/2023 1:39 PM FINANCIAL REPORTING ANALYST Cerebral atrophy and small vessel disease, in keeping with the patient's age. No bleed or mass. Electronically signed by: Cat Sandoval M.D. Narrative 12/08/2023 1:39 PM FINANCIAL REPORTING ANALYST EXAMINATION: CT HEAD WO CONTRAST HISTORY: The [...] mass. Electronically signed by: Cat Sandoval M.D. us Maxi Carrion MD IMG CT PROCEDURES Final Result * TRANSTHORACIC ECHO (TTE) COMPLETE W DOPPLER/CF WO CONTRAST (12/08/2023 1:30 PM FINANCIAL REPORTING ANALYST) Anatomical Region Laterality Modality Ultrasound 12/08/2023 12:5 2 PM FINANCIAL REPORTING ANALYST Narrative 12/08/2023 1:59 PM FINANCIAL [place] [address] Echocardiogram Report ADDENDUM Patient Name: GUNJAN GTZ : 1945 Study Date: 12/08/2023 12:52:29 PM Gender: M Tech: Location: [address] Provider: MAXI CARRION ?Height(Cm): 180 BSA: [...] in the tricuspid valve. Electronically Signed By: Carolyen Mendiola DO, FACC, FASE, FASNC 2023-12-10 09:56:02 FINANCIAL REPORTING ANALYST CC: CC: CC: Procedure Note Carolyne Mendiola DO - 12/10/[address] [address] Echocardiogram Report ADDENDUM Patient Name: GUNJAN GTZ : 1945 Study Date: 12/08/2023 12:52:29 PM Gender: M Tech: BE Location: [address] Provider: MAXI CARRION Height(Cm): 180 BSA: 2.27 [...] Mendiola DO, BO, SONIDO MORRIS 2023-12-10 09:56:02 FINANCIAL REPORTING ANALYST CC: CC: CC: us Maxi Carrion MD CV ECHO PROCEDURES Edite d Result - Final * POCT glucose (12/08/2023 7:26 AM FINANCIAL REPORTING ANALYST) Glucose, POC 105 70 - 199 mg/dL MARVIN Blood 12/08/2023 7:26 AM FINANCIAL REPORTING ANALYST 12/08/2023 7:26 AM FINANCIAL REPORTING ANALYST Maxi Carrion MD LAB POCT ORDERABLES - DE VICE Final Result Performing Organization Address City/[facility] Co de Phone Number MARVIN FISHER [phone] [facility] [place] [address] * POCT glucose (12/08/2023 4:43 AM FINANCIAL REPORTING ANALYST) Glucose, POC 112 70 - 199 mg/dL MARVIN Blood 12/08/2023 4:43 AM FINANCIAL REPORTING ANALYST 12/08/2023 4:43 AM FINANCIAL REPORTING ANALYST us Maxi Carrion MD LAB POCT ORDERABLES - DE VICE Final Result Performing Organization Address [facility] Phone Number MARVIN [address] Department [place] [address] * Lipid panel (12/08/2023 4:10 AM FINANCIAL REPORTING ANALYST) Cholesterol 182 30 - 199 mg/dL MARVIN [...] on 2018. Non-HDL Cholesterol 127 mg/dL C[facility]ER Comment: Interpretive Data Ages < or = [...] 3 [facility] Blood 12/08/2023 4:10 AM FINANCIAL REPORTING ANALYST 12/08/2023 5:09 AM FINANCIAL REPORTING ANALYST us Bernard Casillas MD LAB BLOOD ORDERABLES Final R esult Performing Organization Address [facility] Co de Phone Number MARVIN FISHER [phone] [address] Department [place] [address] * POCT glucose (12/08/2023 12:04 AM FINANCIAL REPORTING ANALYST) Glucose, POC 105 70 - 199 mg/dL [facility] Blood 12/08/2023 12:0 4 AM FINANCIAL REPORTING ANALYST 12/08/2023 12:04 AM FINANCIAL REPORTING ANALYST us Maxi Carrion MD LAB POCT ORDERABLES - DE VICE Final Result Performing Organization Address [facility] Co de Phone Number MARVIN FISHER [address] [address] Department [place] [address] * Critical Care (12/07/2023 10:02 PM FINANCIAL REPORTING ANALYST) Narrative Bernard Casillas MD - 12/07/2023 10:02 PM FINANCIAL REPORTING ANALYST Bernard Casillas MD ? 12/08/2023 ??3:39 AM Critical Care Performed by: Bernard Casillas MD Authorized by: Bernard Casillas MD ?? CRITICAL CARE: ??Team: ??WONG ??Shift: ??PM ??Level of Billing: ??Critical Care [...] plan with the ICU team and other medical/senior science consultant staff, making frequent assessments and decisions [...] Final Result * eGFR (12/07/2023 8:45 PM FINANCIAL REPORTING ANALYST) [facility] eGFR 52 mL/min/1. 73 m2 MARVIN Comment: Interpretive Data [...] last reviewed 2021. Blood 12/07/2023 8:45 PM FINANCIAL REPORTING ANALYST 12/07/2023 9:08 PM FINANCIAL REPORTING ANALYST us Maxi Carrion MD LAB BLOOD ORDERABLES Fin al Result [facility] [id number] Department [place] [address] * Differential, auto (12/07/2023 8:45 PM FINANCIAL REPORTING ANALYST) Neutrophil abs 4.4 1.5 - 6.5 K/cumm [facility] Imm gran abs 0.0 0.0 - 0.1 K/cumm [facility] Lymphocyte abs 2.4 0.8 - 3.3 K/cumm [facility] Monocyte abs 0.7 0.2 - 0.8 K/cumm [facility] Eosinophil abs 0.3 0.0 - 0.5 K/cumm [facility] Basophil abs 0.1 0.0 - 0.1 K/cumm [facility] Neutrophil pct 55.4 % [facility] Comment: Interpretive Data Percent cell count reference ranges are not reported, since discordance with absolute values may lead to misinterpretation of CBC data. Current Interpretive Data was last revised on 2018. Imm gran pct 0.3 % [facility] Comment: Interpretive Data Percent cell count reference ranges are not reported, since discordance with absolute values may lead to misinterpretation of CBC data. Current Interpretive Data was last revised on 2018. Lymphocyte pct 30.7 % [facility] Comment: Interpretive Data Percent cell count [...] revised on 2018. Blood 12/07/2023 8:45 PM FINANCIAL REPORTING ANALYST 12/07/2023 8:56 PM FINANCIAL REPORTING ANALYST Maxi Carrion MD LAB BLOOD ORDERABLES Fin al Result [facility] [address] [place] [address] * Calcium, ionized, whole blood (12/07/2023 8:45 PM FINANCIAL REPORTING ANALYST) Ca, ionized, bld 4.80 4.50 - 5.10 mg/dL [facility] Blood 12/07/2023 8:45 PM FINANCIAL REPORTING ANALYST 12/07/2023 9:06 PM FINANCIAL REPORTING ANALYST Maxi Carrion MD LAB BLOOD ORDERABLES Fin al Result [facility] [address] [place] [address] * (ABNORMAL) Comprehensive metabolic panel (12/07/2023 8:45 PM FINANCIAL REPORTING ANALYST) Sodium 137 135 - 145 mmol/L [facility] Potassium, pl 4.1 3.3 - 4.9 mmol/L [facility] Chloride 103 97 - 110 mmol/L [facility] [...] Units/L [facility] Blood 12/07/2023 8:45 PM FINANCIAL REPORTING ANALYST 12/07/2023 9:06 PM FINANCIAL REPORTING ANALYST Maxi Carroin MD LAB BLOOD ORDERABLES Fin al Result [facility] [address] Department [place] [address] * Magnesium (12/07/2023 8:45 PM FINANCIAL REPORTING ANALYST) Magnesium 2.0 1.4 - 2.5 mg/dL [facility] Blood 12/07/2023 8:45 PM FINANCIAL REPORTING ANALYST 12/07/2023 9:06 PM FINANCIAL REPORTING ANALYST Maxi Carrion MD LAB BLOOD ORDERABLES Fin al Result Performing Organization Address [facility] Co de Phone Number MARVIN [address] [address] [facility] [place] [address] * Phosphorus (12/07/2023 8:45 PM FINANCIAL REPORTING ANALYST) Phosphorus, pl 3.1 2.3 - 4.5 mg/dL [facility] Blood 12/07/2023 8:45 PM FINANCIAL REPORTING ANALYST 12/07/2023 9:06 PM FINANCIAL REPORTING ANALYST Maxi Carrion MD LAB BLOOD ORDERABLES Fin al Result Performing Organization Address [facility] de Phone Number MARVIN [phone] [facility] [place] [address] * (ABNORMAL) CBC with auto differential (12/07/2023 8:45 PM FINANCIAL REPORTING ANALYST) Pathologist [facility] WBC 7.9 3.8 - 9.9 K/cumm [facility] Hgb 13.1 13.0 - 17.5 g/dL [facility] Hct 39.7 38.9 - 50.3 % [facility] Plt 224 150 - 400 K/cumm [facility] MPV 10.3 9.1 - 12.3 fL [facility] RBC 4.04(L) 4.30 - 5.80 M/cumm [facility] CH MCV 98.3(H) 81.3 - 96.4 fL [facility] MCH 32.4 27.1 - 33.3 pg [facility] MCHC 33.0 32.3 - 35.7 g/dL [facility] CH RDW CV 13.3 11.1 - 14.9 % [facility] RDW SD 48.4(H) 35.7 - 48.1 fL [facility] NRBC abs 0.00 0.00 - 0.01 K/cumm [facility] Blood 12/07/2023 8:45 PM FINANCIAL REPORTING ANALYST 12/07/2023 8:56 PM FINANCIAL REPORTING ANALYST Maxi Carrion MD LAB BLOOD ORDERABLES Fin al Result Performing Organization Address [facility]/ZIP Co de Phone Number MARVIN FISHER [phone] [facility] Department [place] [address] * Lipid panel (12/07/2023 8:45 PM FINANCIAL REPORTING ANALYST) [facility] Signature Cholesterol 186 30 - 199 mg/dL MARVIN Comment: Interpretive [...] on 2018. Triglycerides 69 <=149 mg/dL MARVIN Comment: Interpretive Data Ages < [...] last revised on 2018. Chol/HDL ratio 3 [facility] Blood 12/07/2023 8:45 PM FINANCIAL REPORTING ANALYST 12/07/2023 9:06 PM FINANCIAL REPORTING ANALYST Maxi Carrion MD LAB BLOOD ORDERABLES Fin al Result Performing Organization Address [facility] de Phone Number [facility] [address] [place] [address] * Hemoglobin A1c (12/07/2023 8:45 PM FINANCIAL REPORTING ANALYST) Hgb A1C 5.6 4.0 - 5.6 % [facility] Estimated Average Glucose 114 mg/dL [facility] Comment: The ADA recommends reporting an estimated Average Glucose (eAG) with all Hemoglobin A1c results using the equation derived from a study of 507 normal and diabetic adults. ??Minority populations were underrepresented and children were not included. ?? (Diabetes Care 31:4229-3926, 2008). ??The eAG is not equivalent to a fasting glucose. Blood 12/07/2023 8:45 PM FINANCIAL REPORTING ANALYST 12/07/2023 8:56 PM FINANCIAL REPORTING ANALYST Maxi Carrion MD LAB BLOOD ORDERABLES Fin al Result Performing Organization Address [facility] de Phone Number [facility] [address] [place] [address] * (ABNORMAL) Fibrinogen (12/07/2023 8:45 PM FINANCIAL REPORTING ANALYST) Pathologist [facility] Fibrinogen 438(H) 170 - 400 mg/dL [facility] Blood 12/07/2023 8:45 PM FINANCIAL REPORTING ANALYST 12/07/2023 8:57 PM FINANCIAL REPORTING ANALYST Maxi Carrion MD LAB BLOOD ORDERABLES Fin al Result Performing Organization Address [facility] de Phone Number [facility] [address] Department [place] [address] * POCT glucose (12/07/2023 7:57 PM FINANCIAL REPORTING ANALYST) Pathologist [facility] Glucose, POC 102 70 - 199 mg/dL [facility] Blood 12/07/2023 7:57 PM FINANCIAL REPORTING ANALYST 12/07/2023 7:57 PM FINANCIAL REPORTING ANALYST Maxi Carrion MD LAB POCT ORDERABLES - DE VICE Final Result Performing Organization Address [facility] Co de Phone Number [facility] [phone] [address] [place] [address] * (ABNORMAL) Troponin T high-sensitivity 6-hour (12/07/2023 7:34 PM FINANCIAL REPORTING ANALYST) [facility] Trop T hs 24(H) <=22 ng/L [facility] Comment: Slight hemolysis may result in decreased troponin measurement. Consider recollection. Interpretive Data For further hscTnT resources including the diagnostic algorithm and an aid in interpretation, copy and paste this link: https://nrl.testcatalog.org/show/hsTrop Current Interpretive Data last revised 2020. Trop T hs delta 2 ng/L [facility] Trop T hs interp Insignificant [facility] Blood 12/07/2023 7:34 PM FINANCIAL REPORTING ANALYST 12/07/2023 7:41 PM FINANCIAL REPORTING ANALYST Severino Mejía DO LAB BLOOD ORDERABLES Final Res ult Performing Organization Address [facility] Co de Phone Number [facility] [address] [address] [place] [address] * Infection Prevention MRSA Only (Staphylococcus aureus) PCR Nasal (12/07/2023 5:58 PM FINANCIAL REPORTING ANALYST) Pathologist [facility] PCR Scrn, Methicillin resistant Staphylococcus aureus (MRSA) Not Detected Not Detected [facility] Comment: Interpretive Data Testing performed using Nucleic Acid Amplification with the LocPlan[employer] Xpert MRSA NxG Assay. This assay detects target DNA from mecA, mecC and the SCCmec insertion site of Staphylococcus aureus using Real-Time PCR and has been cleared by the FDA. Performance characteristics have been verified by the [facility]. Current Interpretive Data was last revised on 2023 Nasal 12/07/2023 5:58 PM FINANCIAL REPORTING ANALYST 12/07/2023 6:20 PM FINANCIAL REPORTING ANALYST Maxi Carrion MD LAB MICROBIOLOGY - GENER AL ORDERABLES Final Result Performing Organization Address [facility] Co de Phone Number MARVIN [address] Department [place] [address] * Troponin T high-sensitivity 4-hour (12/07/2023 5:58 PM FINANCIAL REPORTING ANALYST) Trop T hs 18 <=22 ng/L [facility]IN Comment: Interpretive Data For further hscTnT resources including the diagnostic algorithm and an aid in interpretation, copy and paste this link: https://nrl.testcatalog.org/show/hsTrop Current Interpretive Data last revised 2020. Trop T hs delta -4 ng/L [facility] Trop T hs interp Insignificant [facility] Blood 12/07/2023 5:58 PM FINANCIAL REPORTING ANALYST 12/07/2023 6:19 PM FINANCIAL REPORTING ANALYST Severino Mejía DO LAB BLOOD ORDERABLES Final Res ult Performing Organization Address [facility] Co de Phone Number MARVIN FISHER [phone] Department [place] [address] * ECG 12 lead (12/07/2023 5:20 PM FINANCIAL REPORTING ANALYST) 12/07/2023 5:20 PM FINANCIAL REPORTING ANALYST Narrative [facility] - 12/08/2023 5:25 AM FINANCIAL REPORTING ANALYST Vent Rate: 53 bpm RR Interval: 1114 msec [place] Interval: 183 msec QRS Duration: 84 msec QT Interval: 420 msec QTC Interval: 404 msec P-R-T Alexander: 40 - -10 - 21 degrees IMPRESSION: SINUS BRADYCARDIA MINIMAL VOLTAGE CRITERIA FOR LVH, CONSIDER NORMAL VARIANT ??[MEETS CRITERIA IN ONE OF: R(aVL), S(V1), R(V5), R(V5/V6)+S(V1)] BORDERLINE ECG Compared to prior EKG, PVCs are no longer present Electronically Signed By: Jasen Tran MD us Maxi Carrion MD ECG ORDERABLES Final Re sult Performing Organization Address [facility]/ZIP Co de Phone Number [facility] * POCT glucose (12/07/2023 4:52 PM FINANCIAL REPORTING ANALYST) Glucose, POC 97 70 - 199 mg/dL [facility] Blood 12/07/2023 4:52 PM FINANCIAL REPORTING ANALYST 12/07/2023 4:52 PM FINANCIAL REPORTING ANALYST Maxi Carrion MD LAB POCT ORDERABLES - DE VICE Final Result Performing Organization Address [facility] Co de Phone Number [facility] [phone] [place] [address] * (ABNORMAL) Urinalysis, microscopic only (12/07/2023 3:22 PM FINANCIAL REPORTING ANALYST) WBC, ur 6-10(A) 0 - 5 /HPF [facility] RBC, ur 3-5(A) 0 - 2 /HPF [facility] Mucous, ur Present(A) [facility] Culture Reflex Comment Reflex conditions for urine culture (WBC >10) not met. [facility] Urine 12/07/2023 3:22 PM FINANCIAL REPORTING ANALYST 12/07/2023 3:25 PM FINANCIAL REPORTING ANALYST us Severino Mejía DO LAB URINE ORDERABLES Final Res ult Performing Organization Address [facility]/ZIP Co de Phone Number [facility] [address] [address] Department [place] [address] * (ABNORMAL) Urinalysis reflex to microscopic and culture Urine (12/07/2023 3:22 PM FINANCIAL REPORTING ANALYST) Color, ur Straw Yellow [facility] Clarity, ur Clear Clear [facility] Specific gravity, ur 1.038(H) 1.003 - 1.030 [facility] CH pH, urine 6.0 [facility] Comment: Interpretive Data ? Urine pH is affected by diet, medications, systemic acid-base disturbances, and renal tubular function. ??pH may affect urinary stone formation. ??For example, urine pH below 6.0 may help reduce the tendency for calcium phosphate stones and pH greater than 6.0 may reduce the tendency for uric acid stone formation. Source: [facility] Current Interpretive Data was last revised on [...] be performed. MARVIN Urine 12/07/2023 3:22 PM FINANCIAL REPORTING ANALYST 12/07/2023 3:25 PM FINANCIAL REPORTING ANALYST Severino Mejía DO LAB MICROBIOLOGY - GENERAL ORD ERABLES Final Result [facility] [phone] Department [place] [address] * (ABNORMAL) Troponin T high-sensitivity 2-hour (12/07/2023 2:50 PM FINANCIAL REPORTING ANALYST) Trop T hs 24(H) <=22 ng/L [facility] Comment: Interpretive Data For further hscTnT resources including the diagnostic algorithm and an aid in interpretation, copy and paste this link: https://nrl.testcatalog.org/show/hsTrop Current Interpretive Data last revised 2020. Trop T hs delta See Comment ng/L MARVIN FISHER Comment:Inappropriate collec tion time to report a delta. Trop T hs pct delta See Comment % MARVIN FISHER Comment:Inappropriate collec tion time to report a delta. Trop T hs interp See Comment MARVIN FISHER Comment:Inappropriate collec tion time to report a delta. Blood 12/07/2023 2:50 PM FINANCIAL REPORTING ANALYST 12/07/2023 2:54 PM FINANCIAL REPORTING ANALYST Severino Mejía DO LAB BLOOD ORDERABLES Final Res ult Performing Organization Address City/[facility]/ZIP Co de Phone Number MARVIN FISHER [phone] [employer] [place], [place] [id number] * eGFR (12/07/2023 1:30 PM FINANCIAL REPORTING ANALYST) eGFR 47 mL/min/1. 73 m2 MARVIN FISHER [...] last reviewed 2021. Blood 12/07/2023 1:30 PM FINANCIAL REPORTING ANALYST 12/07/2023 1:36 PM FINANCIAL REPORTING ANALYST Severino Mejía DO LAB BLOOD ORDERABLES Final Res ult Performing Organization Address [facility] Co de Phone Number MARVIN FISHER [address] [employer] [place], [place] [id number] * Differential, auto (12/07/2023 1:30 PM FINANCIAL REPORTING ANALYST) Neutrophil abs 3.6 1.5 - 6.5 K/cumm [facility] Imm gran abs 0.0 0.0 - 0.1 K/cumm [facility] Lymphocyte abs 2.2 0.8 - 3.3 K/cumm [facility] Monocyte abs 0.8 0.2 - 0.8 K/cumm [facility] Eosinophil abs 0.3 0.0 - 0.5 K/cumm [facility] Basophil abs 0.1 0.0 - 0.1 K/cumm [facility] Neutrophil pct 52.3 % [facility] Comment: Interpretive Data Percent cell count reference ranges are not reported, since discordance with absolute values may lead to misinterpretation of CBC data. Current Interpretive Data was last revised on 2018. Imm gran pct 0.1 % [facility] Comment: Interpretive Data Percent cell count reference ranges are not reported, since discordance with absolute values may lead to misinterpretation of CBC data. Current Interpretive Data was last revised on 2018. Lymphocyte pct 31.7 % [facility] Comment: Interpretive Data Percent cell count reference ranges are not reported, since discordance with absolute values may lead to misinterpretation of CBC data. Current Interpretive Data was last revised on 2018. Monocyte pct 11.0 % [facility] Comment: Interpretive Data Percent cell count reference ranges are not reported, since discordance with absolute values may lead to misinterpretation of CBC data. Current Interpretive Data was last revised on 2018. Eosinophil pct 4.2 % [facility] Comment: Interpretive Data Percent cell count reference ranges are not reported, since discordance with absolute values may lead to misinterpretation of CBC data. Current Interpretive Data was last revised on 2018. Basophil pct 0.7 % [facility] Comment: Interpretive Data Percent cell count reference ranges are not reported, since discordance with absolute values may lead to misinterpretation of CBC data. Current Interpretive Data was last revised on 2018. Blood 12/07/2023 1:30 PM FINANCIAL REPORTING ANALYST 12/07/2023 1:35 PM FINANCIAL REPORTING ANALYST us Severino Mejía DO LAB BLOOD ORDERABLES Final Res ult Performing Organization Address [facility] Co de Phone Number MARVIN [phone] [address] [facility] [place] [address] * Troponin T high-sensitivity series (baseline, 2hr, 4hr, 6hr) (12/07/2023 1:30 PM FINANCIAL REPORTING ANALYST) Trop T hs 22 <=22 ng/L [facility]IN Comment: Slight hemolysis may result in decreased troponin measurement. Consider recollection. Interpretive Data For further hscTnT resources including the diagnostic algorithm and an aid in interpretation, copy and paste this link: https://nrl.testcatalog.org/show/hsTrop Current Interpretive Data last revised 2020. Blood 12/07/2023 1:30 PM FINANCIAL REPORTING ANALYST 12/07/2023 1:35 PM FINANCIAL REPORTING ANALYST Severino Mejía DO LAB BLOOD ORDERABLES Final Res ult Performing Organization Address [facility] de Phone Number MARVIN [phone] [address] [facility] [place] [address] * aPTT (12/07/2023 1:30 PM FINANCIAL REPORTING ANALYST) aPTT 32 28 - 38 sec MARVIN Comment: Interpretive Data Heparin therapeutic range: 66.0 - 100.0 seconds. Range based on correlation with therapeutic heparin activity range of 0.3 - 0.7 Units/mL. Current interpretive data was last revised on 2023. Blood (Blood, Venous) 12/07/2023 1:30 PM FINANCIAL REPORTING ANALYST 12/07/2023 1:35 PM FINANCIAL REPORTING ANALYST Narrative MARVIN - 12/07/2023 1:55 PM FINANCIAL REPORTING ANALYST Potential stroke patient. Severino Mejía DO LAB BLOOD ORDERABLES Final Res ult Performing Organization Address [facility] Co de Phone Number MARVIN [address] [facility] [place] [address] * Protime-INR (12/07/2023 1:30 PM FINANCIAL REPORTING ANALYST) PT 11.8 10.3 - 13.7 sec [facility] INR 1.04 0.90 - 1.20 [facility] Comment: Interpretive data Oral anticoagulant therapeutic ranges: Venous thromboembolism prophylaxis or treatment: 2.0-3.0 CARDIOLOGY Standard range: 2.0-3.0 High-intensity range: 2.5-3.5 Refer to indication-specific guidelines for appropriate target ranges for prosthetic heart valve replacement. Current interpretive data was last revised on 2019. Blood 12/07/2023 1:30 PM FINANCIAL REPORTING ANALYST 12/07/2023 1:35 PM FINANCIAL REPORTING ANALYST us Severino Mejía DO LAB BLOOD ORDERABLES Final Res ult [facility] [address] Department [place] [address] * (ABNORMAL) Comprehensive metabolic panel (12/07/2023 1:30 PM FINANCIAL REPORTING ANALYST) Sodium 139 135 - 145 mmol/L [facility] Potassium, pl 4.8 3.3 - 4.9 mmol/L [facility] Comment:Hemolysis present. R esults may be affected. Chloride 105 97 - 110 mmol/L [facility] CO2 24 22 - 32 mmol/L [facility] Anion gap 10 2 - 15 mmol/L [facility] BUN 19 6 - 25 mg/dL [facility] Creatinine 1.50(H) 0.80 - 1.30 mg/dL [facility] Glucose 115 70 - 199 mg/dL [facility] Comment: Interpretive Data Fasting glucose >/= [...] affected. Blood (Blood, Venous) 12/07/2023 1:30 PM FINANCIAL REPORTING ANALYST 12/07/2023 1:35 PM FINANCIAL REPORTING ANALYST Narrative [facility] - 12/07/2023 2:06 PM FINANCIAL REPORTING ANALYST Potential Stroke Patient us Severino Mejía DO LAB BLOOD [place] [address] [address] Department [place] [address] * (ABNORMAL) CBC with auto differential (12/07/2023 1:30 PM FINANCIAL REPORTING ANALYST) WBC 6.9 3.8 - 9.9 K/cumm CERNER [...] CH Blood (Blood, Venous) 12/07/2023 1:30 PM FINANCIAL REPORTING ANALYST 12/07/2023 1:35 PM FINANCIAL REPORTING ANALYST Narrative MARVIN - 12/07/2023 1:41 PM FINANCIAL REPORTING ANALYST Potential Stroke Patient Severino Mejía DO LAB BLOOD ORDERABLES Final Res ult Performing Organization Address City/[facility]/ZIP Co de Phone Number MARVIN [address] [address] Department [place] [address] * ECG 12 lead (12/07/2023 1:21 PM FINANCIAL REPORTING ANALYST) 12/07/2023 1:21 PM FINANCIAL REPORTING ANALYST Narrative [facility] - 12/08/2023 5:25 AM FINANCIAL REPORTING ANALYST Vent Rate: 72 bpm RR Interval: 826 msec [place] Interval: 183 msec QRS Duration: 88 msec QT Interval: 384 msec QTC Interval: 408 msec P-R-T Alexander: 54 - -7 - 31 degrees IMPRESSION: SINUS RHYTHM WITH OCCASIONAL VENTRICULAR PREMATURE COMPLEXES BORDERLINE ECG NO CHANGE FROM PREVIOUS TRACING NOTED Electronically Signed By: Jasen Tran MD Severino Mejía DO ECG ORDERABLES Final Result Performing Organization Address [facility] de Phone Number [facility] [email or web address] [facility] * CTA/CTP Rapid Stroke (C) (12/07/2023 1:16 PM FINANCIAL REPORTING ANALYST) Anatomical Region Laterality Modality Head and Neck N/A Computed Tomogra phy 12/07/2023 1:32 PM FINANCIAL REPORTING ANALYST Impressions 12/07/2023 1:32 PM FINANCIAL REPORTING ANALYST No CT evidence of stroke. No significant carotid artery stenosis. ??There is also of the noncontrast CT of the brain called emergency room physician at 1:10 PM, results of the CT angiogram rapid stroke program called to the emergency room physician at 1:30 PM. Electronically signed by: Beka Draper M.D. Narrative 12/07/2023 1:32 PM FINANCIAL REPORTING ANALYST EXAMINATION: Computed tomography angiography (CTA) of the [...] separate workstation for processing by RAPID software ([employer]) to produce automated calculations of the estimated [...] Artery: no occlusion or significant stenosis L ADVERTISING SALES REPRESENTATIVE: no occlusion or significant stenosis R ADVERTISING SALES REPRESENTATIVE: no occlusion or significant stenosis Venous sinuses [...] separate workstation for processing by RAPID software ([employer]) to produce automated calculations of the estimated [...] Artery: no occlusion or significant stenosis L ADVERTISING SALES REPRESENTATIVE: no occlusion or significant stenosis R ADVERTISING SALES REPRESENTATIVE: no occlusion or significant stenosis Venous sinuses [...] DO IMG CT PROCEDURES Final Result * [place] CRITICAL CARE ILL/INJURED PATIENT INIT 30-74 MIN (12/07/2023 1:02 PM FINANCIAL REPORTING ANALYST) Narrative Severino Mejía DO - 12/07/2023 1:02 PM FINANCIAL REPORTING ANALYST Severino Mejía, DO ? 12/07/2023 ??1:47 PM Critical Care Performed by: Severino Mejía DO Authorized by: Severino Mejía, ?? Critical care provider statement: As reflected [...] and discussed management with the admitting team. 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), 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, shortness of breath, Starting on Wed12/07/23 at 1759 aspirin chewable tablet 81 mg 81 mg, oral, Daily, First dose on Wed12/08/23 at 1645 Given 12/15/2023 8:02 AM FINANCIAL REPORTING ANALYST 81 mg Given 12/14/2023 8:16 AM FINANCIAL REPORTING ANALYST 81 mg Given 12/13/2023 10:36 AM FINANCIAL REPORTING ANALYST 81 mg bismuth subsalicylate (PEPTO BISMOL) 262 mg/15 mL oral suspension 30 mL 30 mL, oral, 4 times daily PRN, indigestion, Starting on Wed12/10/23 at 2010, For 4 doses Given 12/10/2023 8:48 PM FINANCIAL REPORTING ANALYST 30 mL Carrier Fluids for Secondary Infusion [...] at 1745 New Bag 12/07/2023 5:34 PM FINANCIAL REPORTING ANALYST 30 mL/hr 30 mL/hr dextrose oral liquid [...] Indications: constipationIndications:constipati on Given 12/15/2023 8:02 AM FINANCIAL REPORTING ANALYST 100 mg Given 12/14/2023 8:16 AM FINANCIAL REPORTING ANALYST 100 mg Given 12/13/2023 5:30 PM FINANCIAL REPORTING ANALYST 100 mg donepeziL (ARICEPT) tablet 10 mg 10 mg, oral, Nightly, First dose on Wed12/07/23 at 2100 Given 12/14/2023 9:33 PM FINANCIAL REPORTING ANALYST 10 mg Given 12/13/2023 9:16 PM FINANCIAL REPORTING ANALYST 10 mg Given 12/12/2023 8:36 PM FINANCIAL REPORTING ANALYST 10 mg enoxaparin (LOVENOX) syringe 40 mg 40 mg, subcutaneous, Daily (for enoxaparin), First dose on Wed12/09/23 at 2100, Indications: Deep Vein Thrombosis Prevention, On hold since [facility] 12/11/2023 at 0115 until manually unheldIndications:Deep Vein Thrombosis Prevention Given 12/10/2023 8:48 PM FINANCIAL REPORTING ANALYST 40 mg Right Lower Abdomen Given 12/09/2023 9:19 PM FINANCIAL REPORTING ANALYST 40 mg Le ft Lower Abdomen fluticasone furoate-vilanteroL (BREO ELLIPTA) 100-25 mcg/dose inhaler 1 puff 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, 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, 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), First dose on Wed12/07/23 at 1830 Given 12/15/2023 8:10 AM FINANCIAL REPORTING ANALYST 1 puff Given 12/14/2023 10:36 AM FINANCIAL REPORTING ANALYST 1 puff Given 12/13/2023 9:39 AM FINANCIAL REPORTING ANALYST 1 puff gabapentin (NEURONTIN) capsule 300 mg 300 mg, oral, 3 times daily, First dose on Wed12/07/23 at 2100 Given 12/15/2023 8:02 AM FINANCIAL REPORTING ANALYST 300 mg Given 12/14/2023 5:05 PM FINANCIAL REPORTING ANALYST 300 mg Given 12/14/2023 11:22 AM FINANCIAL REPORTING ANALYST 300 mg glucagon injection 1 mg 1 [...] 1 dose Contrast Given 12/07/2023 1:17 PM FINANCIAL REPORTING ANALYST 120 mL lactulose (CEPHULAC) packet 20 g 20 g, oral, 2 times daily, First dose (after last modification) on Wed12/14/23 at 1245, For 2 doses Given 12/14/2023 2:22 PM FINANCIAL REPORTING ANALYST 20 g levothyroxine (SYNTHROID) tablet 150 mcg 150 mcg, oral, Daily (early AM), First dose on Wed12/08/23 at 0600, Administer on an empty stomach, preferably 30 minutes before breakfast. Take 4 hours apart from antacids, iron and calcium products. Separate from tube feeds, if applicable. Given 12/15/2023 6:43 AM FINANCIAL REPORTING ANALYST 150 mcg Given 12/14/2023 6:45 AM FINANCIAL REPORTING ANALYST 150 mcg Given 12/13/2023 6:20 AM FINANCIAL REPORTING ANALYST 150 mcg ofloxacin (OCUFLOX) 0.3 % ophthalmic solution 1 drop 1 drop, each eye, Daily PRN, Dry eyes, Starting on 12/12/23 at 1409 Given 12/12/2023 3:55 PM FINANCIAL REPORTING ANALYST 1 drop ondansetron (ZOFRAN) injection 4 mg 4 mg, intravenous, Administer over 2 Minutes, Every 4 hours PRN, nausea, vomiting, Starting on 12/11/23 at 0116 Given 12/11/2023 1:42 AM FINANCIAL REPORTING ANALYST 4 m g oxyCODONE-acetaminophen (PERCOCET) 5-325 mg per tablet 1 tablet 1 tablet, oral, 4 times daily PRN, 2nd line for pain, Starting on Wed12/10/23 at 1129, Indications: PainIndications:Pain Given 12/15/2023 6:43 AM FINANCIAL REPORTING ANALYST 1 tablet Given 12/14/2023 9:36 PM FINANCIAL REPORTING ANALYST 1 tablet Given 12/14/2023 10:39 AM FINANCIAL REPORTING ANALYST 1 tablet pantoprazole (PROTONIX) 40 mg in [...] Disorder,GERD, home med Given 12/08/2023 8:41 AM FINANCIAL REPORTING ANALYST 40 mg 300 mL/hr Given 12/07/2023 6:02 PM FINANCIAL REPORTING ANALYST 40 mg 300 mL/hr pantoprazole (PROTONIX) 40 [...] Bleed,Stress Ulcer Prophylaxis Given 12/15/2023 8:02 AM FINANCIAL REPORTING ANALYST 40 mg 300 mL/hr Given 12/14/2023 9:21 PM FINANCIAL REPORTING ANALYST 40 mg 300 mL/hr Given 12/14/2023 8:16 AM FINANCIAL REPORTING ANALYST 40 mg 300 mL/hr pantoprazole DR (PROTONIX) extended release tablet 20 mg 20 mg, oral, Daily, First dose on Wed12/09/23 at 0900, Do not crush, chew, cut, dissolve, open or otherwise manipulate tablet/capsule., Indications: Stress Ulcer ProphylaxisIndications:Stress Ulcer Prophylaxis Given 12/10/2023 8:47 AM FINANCIAL REPORTING ANALYST 20 mg Given 12/09/2023 9:13 AM FINANCIAL REPORTING ANALYST 20 mg polyethylene glycol (MIRALAX) packet 17 g 17 g, oral, Daily, First dose on Wed12/13/23 at 1700, Indications: constipationIndications:constipation Given 12/14/2023 8:16 AM FINANCIAL REPORTING ANALYST 17 g Given 12/13/2023 5:30 PM FINANCIAL REPORTING ANALYST 17 g ramelteon (ROZEREM) tablet 8 mg 8 mg, oral, Nightly PRN, sleep, Starting on Wed12/07/23 at 1942, Indications: Sleep-Onset InsomniaIndications:Sleep-Onset Insomnia Given 12/14/2023 9:37 PM FINANCIAL REPORTING ANALYST 8 m g Given 12/13/2023 9:21 PM FINANCIAL REPORTING ANALYST 8 mg rosuvastatin (CRESTOR) tablet 10 mg 10 mg, oral, Daily, First dose on Wed12/07/23 at 2015, Indications: Secondary Stroke PreventionIndications:Secondary Stroke Prevention Given 12/09/2023 9:13 AM FINANCIAL REPORTING ANALYST 10 mg Given 12/08/2023 8:41 AM FINANCIAL REPORTING ANALYST 10 mg Given 12/07/2023 8:23 PM FINANCIAL REPORTING ANALYST 10 mg rosuvastatin (CRESTOR) tablet 40 mg 40 mg, oral, Daily, First dose (after last modification) on Wed12/10/23 at 0900, Indications: Secondary Stroke PreventionIndications:Secondary Stroke Prevention Given 12/15/2023 8:02 AM FINANCIAL REPORTING ANALYST 40 mg Given 12/14/2023 8:16 AM FINANCIAL REPORTING ANALYST 40 mg Given 12/13/2023 8:21 AM FINANCIAL REPORTING ANALYST 40 mg sodium chloride 0.9% flush 0.5-20 mL 0.5-20 mL, intra-catheter, Every 8 hours scheduled, First dose on Wed12/07/23 at 1745, Flush volume based on line type and size. Given 12/15/2023 6:43 AM FINANCIAL REPORTING ANALYST 10 mL Given 12/14/2023 9:46 PM FINANCIAL REPORTING ANALYST 10 mL Given 12/14/2023 5:05 PM FINANCIAL REPORTING ANALYST 10 mL sodium chloride 0.9% flush [...] AFTER tenecteplase administration. Given 12/07/2023 1:27 PM FINANCIAL REPORTING ANALYST 10 mL sodium chloride 0.9% flush 10 mL 10 mL, intra-catheter, Once, On Wed12/07/23 at 1324, For 1 dose, Flush IV catheter BEFORE and AFTER tenecteplase administration. Given 12/07/2023 1:27 PM FINANCIAL REPORTING ANALYST 10 mL tamsulosin (FLOMAX) extended release capsule 0.4 mg 0.4 mg, oral, Nightly, First dose on Wed12/07/23 at 2100, Do not crush, chew, cut, dissolve, open or otherwise manipulate tablet/capsule. Given 12/14/2023 9:33 PM FINANCIAL REPORTING ANALYST 0.4 mg Given 12/13/2023 9:15 PM FINANCIAL REPORTING ANALYST 0.4 mg Given 12/12/2023 8:36 PM FINANCIAL REPORTING ANALYST 0.4 mg tenecteplase (TNKase) injection for STROKE [...] strokeIndications:Acute ischemic stroke Given 12/07/2023 1:27 PM FINANCIAL REPORTING ANALYST 25 m g tiZANidine (ZANAFLEX) tablet 2 mg 2 mg, oral, 3 times daily PRN, muscle spasms, Starting on Wed12/08/23 at 1014, Administer on an empty stomach Given 12/08/2023 10:19 AM FINANCIAL REPORTING ANALYST 2 mg zolpidem (AMBIEN) tablet 5 mg 5 mg, oral, Nightly PRN, sleep, Starting on 12/11/23 at 1320 Given 12/12/2023 8:36 PM FINANCIAL REPORTING ANALYST 5 mg Given 12/11/2023 8:32 PM FINANCIAL REPORTING ANALYST 5 mg documented in this encounter Discontinued [...] Recently Administered Medications Times are shown in FINANCIAL REPORTING ANALYST. Scheduled Medication Order 12/13/2023 12/14/2023 12/15/2023 aspirin [...] Indications: constipation 1730 (Given - Provider: Amie Rdz RN) 0816 (Given - Provider: Andreia Nicolas RN)2132 (Not Given - Provider: Chapis Mcknight LPN - Reason: Patient/family refused) 0802 (Given - Provider: Norma Saul RN) donepeziL (ARICEPT) tablet 10 mg 10 mg, oral, Nightly, First dose on Wed12/07/23 at 2100 2116 (Given - Provider: Tamar Valle RN) 2133 (Given - Provider: Chapis Mcknight LPN) enoxaparin (LOVENOX) syringe 40 mg 40 mg, subcutaneous, Daily (for enoxaparin), First dose on Wed12/09/23 at 2100, Indications: Deep Vein Thrombosis Prevention, On hold since Wed12/11/2023 at 0115 until manually unheld 2099 (Hold - Provider: Tamar Valle RN - Reason: See Provider Order) 2100 (Dose Auto Held - Provider: Kristen Isabel NP) 1416 (Unheld by Provider - Provider: Automatic Discharge Provider) fluticasone furoate-vilanteroL (BREO ELLIPTA) 100-25 mcg/dose inhaler 1 puff 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, 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, 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), First dose on Wed12/07/23 at 1830 0939 (Given - Provider: Alis Martinez CRTT) 1036 (Given - Provider: Adeline Valdes, ADALGISA) 0810 (Given - Provider: Mary Ellen Haq, SOCIAL MEDIA EDITOR) gabapentin (NEURONTIN) capsule 300 mg 300 mg, oral, 3 times daily, First dose on Wed12/07/23 at 2100 0821 (Given - Provider: Amie Rdz RN)1606 (Given - Provider: Amie Rdz RN)2115 (Given - Provider: Tamar Valle RN) 0816 (Given - Provider: Andreia Nicolas RN)1122 (Given - Provider: Chapis Mcknight LPN - Comment: was too close to previous dose)1705 (Given - Provider: Andreia Nicolas RN) 0802 (Given - Provider: Norma Salu RN) lactulose (CEPHULAC) packet 20 g 20 [...] Eileen Clark RN) 0645 (Given - Provider: Tamar Valle RN) 0643 (Given - Provider: Chapis [...] Andreia Nicolas RN)212 (Given - Provider: Patricia Lieberman, MARAH) 0802 (Given - Provider: Norma Saul, MARAH) polyethylene glycol (MIRALAX) packet 17 g 17 g, oral, Daily, First dose on Wed12/13/23 at 1700, Indications: constipation 1730 (Given - Provider: Amie Rdz, MARAH) 0816 (Given - Provider: Andreia Nicolas RN) 0802 (Not Given - Provider: Norma Saul RN - Reason: Patient/family refused) rosuvastatin (CRESTOR) tablet 40 mg 40 mg, oral, Daily, First dose (after last modification) on Wed12/10/23 at 0900, Indications: Secondary Stroke Prevention 0821 (Given - Provider: Amie Rdz RN) 0816 (Given - Provider: Andreia Nicolas [...] Fever, Pain 2124 (Given - Provider: Tamar Valle RN) acetaminophen (TYLENOL) suppository 650 mg(Linked Group 1) [...] Pain 2124 (See Alternative - Provider: Tamar Valle, MARAH) albuterol HFA (PROVENTIL HFA,VENTOLIN HFA,PROAIR HFA) 90 mcg/actuation inhaler 2 puff 2 puff, inhalation, Every 4 hours 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), wheezing, shortness of breath, Starting on Wed12/07/23 [...] 12/07/2023 documented in this encounter Care Teams Stranding Machine Operator Relationship Specialty Start Date End Date Wolfgang Serrano MD PCP - General Family Medicine 05/05/23 08/02/24 Unknown, Notinfile 03/12/22 [place] [address] [place] [address] 03/12/22 Chuy Enriquez MD [address] [place] [address] Consulting Physician Pulmonary Disease 10/13/23 Luis Felipe Cedillo MD [address] [place] [address] Consulting Physician Gastroenterology 10/13/23 Marlene Thornton MD [address] [address] Surgeon Vascular Surgery 11/10/23 documented as of this encounter
--- OUTSIDE RECORDS SUMMARY | 2024-10-11 03:03 | XMS_ITS | Encounter Summary ---
Author Organization [facility] Healthcare Address [address] [place] [address] Care Team Providers Care Silver Service Waiter Name Role Phone Wolfgang Serrano MD Primary Care Provider [phone] Unknown, Notinfile Unavailable Unavailable Santino Funk MD Unavailable Chuy Enriquez MD Unavailable Luis Felipe Cedillo MD Unavailable [phone] Marlene Thornton MD Unavailable Encounter Details Date Type Department Care Team (Late st Contact Info) Description 11/18/2023 Documentation [facility] [address] [facility] [address] [place] [address] Yi Lopez Social History Tobacco [...] slept in a assisted (including now)? No 11/25/2021 Personal Safety Answer Date Recorded Getting School Help Needed Denies 10/10 Sex and Gender Information Value Date Recorded Sex Assigned at Not on file Legal Sex Male 3:25 PM SLOT MANAGER Gender Identity Not on file Sexual Orientation Not on file documented as of this encounter Progress Notes * Yi Lopez - 11/18/2023 1:21 PM CST Left message with PCP to call Dr. Enriquez MANAGER documented in this encounter Plan of Treatment Upcoming Encounters Date Type Department Care Team (Latest Contact Info) Description 10/23/2024 10:00 AM SLOT MANAGER Hospital Encounter [facility] Operating Room [address] [place] [address] [place] [address] [facility][1] [address] [place] [address] 10/23/2024 10:00 AM SLOT MANAGER - 10/23/2024 1:00 PM SLOT MANAGER Surgery [facility] Operating Room [address] [place] [address] [place] [address] [id number] ARTHROPLASTY TOTAL KNEE LEFT Scheduled Procedures Name Priority Associated Diagnoses Date/Ti me ARTHROPLASTY TOTAL KNEE left knee osteoarthritis 10/23/2024 10:00 AM SLOT MANAGER ESOPHAGOGASTRODUODENOSCOPY Dysphagia, unspecified type documented as of this encounter Visit Diagnoses Not on filedocumented in this encounter Care Teams Silver Service Waiter Relationship Specialty Start Date End Date Wolfgang Serrano MD PCP - General Family Medicine 05/05/23 08/02/24 Unknown, Notinfile 03/12/22 [place] [address] [facility]] [address] [place] [address] 03/12/22 Chuy Enriquez MD [address] [facility] [address] [place] [address] Consulting Physician Pulmonary Disease 10/13/23 Luis Felipe Cedillo MD [address] [address] [place] [address] Consulting Physician Gastroenterology 10/13/23 Marlene Thornton MD [address] [facility] [address] [address] Surgeon Vascular Surgery 11/10/23 documented as of this encounter
--- OUTSIDE RECORDS SUMMARY | 2024-10-11 03:03 | XMS_ITS | Encounter Summary ---
Author Organization [facility] Address [address] [place] [address] Phone Care Team Providers Care Guest History Clerk Name Role Phone Wolfgang Serrano MD Primary Care Provider Unknown, Notinfile Unavailable Unavailable Santino Funk MD Unavailable Chuy Enriquez MD Unavailable Luis Felipe Cedillo MD Unavailable Marlene Thornton MD Unavailable Reason for Visit * Reason Comments Rash * Consultation (Routine) - Pending Review Specialty Diagnoses / Procedures Referred By Dillan mccallum Referred To Contact Dermatology Diagnoses Dermatitis Jevon Barrera, LIQUEFACTION AND REGASIFICATION HELPER [address] [place] [address] Phone: tel: fax: [facility] Dermatology [facility] [address] [place] [address] Phone: tel: fax: Referral ID Status Reason Start Date Expiration Date Visits Requested Visits Authorized [id number] Pending Review Specialty Services Required 10/29/2023 11/27/2024 12 12 Encounter Details Date Type Department Care Team (Late st Contact Info) Description 11/17/2023 1:15 PM SHAREPOINT APPLICATION ARCHITECT Office Visit [facility] Dermatology [address] [facility] [address] [place] [address] Byron Woody IV, MD PhD [address] [facility] [address] [place] [address] Pruritus (Primary Dx); Lichen simplex chronicus; Prurigo [...] on file Legal Sex Male 3:25 PM SHAREPOINT APPLICATION ARCHITECT Gender Identity Not on file Sexual [...] above. RTC 3-4 months or sooner PRN EPOINT APPLICATION ARCHITECT documented in this encounter Plan of Treatment Upcoming Encounters Date Type Department Care Team (Latest Contact Info) Description 10/23/2024 10:00 AM SHAREPOINT APPLICATION ARCHITECT Hospital Encounter [facility] Operating Room [address] [place] [address] [place] [address] [address] 10/23/2024 10:00 AM SHAREPOINT APPLICATION ARCHITECT - 10/23/2024 1:00 PM SHAREPOINT APPLICATION ARCHITECT Surgery [facility] Operating Room [address] [place] [address] [place] [address] [address] ARTHROPLASTY TOTAL KNEE LEFT Scheduled Procedures Name Priority Associated Diagnoses Date/Ti me ARTHROPLASTY TOTAL KNEE left knee osteoarthritis 10/23/2024 10:00 AM SHAREPOINT APPLICATION ARCHITECT ESOPHAGOGASTRODUODENOSCOPY Dysphagia, unspecified type documented as [...] 11/17/2023 documented in this encounter Care Teams Guest History Clerk Relationship Specialty Start Date End Date Wolfgang Serrano MD PCP - General Family Medicine 05/05/23 08/02/24 Unknown, Notinfile 03/12/22 [place] [address] [facility] [address] [place] [address] 03/12/22 Chuy Enriquez MD [address] [facility] [address] [place] [address] Consulting Physician Pulmonary Disease 10/13/23 Luis Felipe Cedillo MD [address] [facility] [address] [place] [address] Consulting Physician Gastroenterology 10/13/23 Marlene Thornton MD [address] [facility] [address], [place] [address] Surgeon Vascular Surgery 11/10/23 documented as of this encounter
--- OUTSIDE RECORDS SUMMARY | 2024-10-11 03:03 | XMS_ITS | Encounter Summary ---
Author Organization [facility] Healthcare Address [address] [place] [address] Care Team Providers Care Cloth Shrinking Supervisor Name Role Phone Wolfgang Serrano MD Primary Care Provider Unknown, Notinfile Unavailable Unavailable Santino Funk MD Unavailable Chuy Enriquez MD Unavailable [phone] Luis Felipe Cedillo MD Unavailable Marlene Thornton MD Unavailable Encounter Details Date Type Department Care Team (Late st Contact Info) Description 11/30/2023 Documentation [facility] [address] [facility] [address] [place] [address] Yi Lopez Social History Tobacco [...] relatives? 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 [phone] STEAMER documented in this encounter Plan of Treatment Upcoming Encounters Date Type Department Care Team (Latest Contact Info) Description 10/23/2024 10:00 AM HAT STEAMER Hospital Encounter [facility] Operating Room [address] [place] [address] [place] [address] [address] 10/23/2024 10:00 AM HAT STEAMER - 10/23/2024 1:00 PM HAT STEAMER Surgery [facility] Operating Room [address] [place] [address] [place] [address] [id number] ARTHROPLASTY TOTAL KNEE LEFT Scheduled Procedures Name Priority Associated Diagnoses Date/Ti me ARTHROPLASTY TOTAL KNEE left knee osteoarthritis 10/23/2024 10:00 AM HAT STEAMER ESOPHAGOGASTRODUODENOSCOPY Dysphagia, unspecified type documented as of this encounter Visit Diagnoses Not on filedocumented in this encounter Care Teams Cloth Shrinking Supervisor Relationship Specialty Start Date End Date Wolfgang Serrano MD PCP - General Family Medicine 05/05/23 08/02/24 Unknown, Notinfile 03/12/22 [place] [address] [facility] [address] [place] [address] 03/12/22 Chuy Enriquez MD [address] [facility] [address] [place] [address] Consulting Physician Pulmonary Disease 10/13/23 Luis Felipe Cedillo MD [address] [place] [address] Consulting Physician Gastroenterology 10/13/23 Marlene Thornton MD [address] [place] [address] Surgeon Vascular Surgery 11/10/23 documented as of this encounter
--- OUTSIDE RECORDS SUMMARY | 2024-10-11 03:03 | XMS_ITS | Encounter Summary ---
Author Organization [facility] Healthcare Address [address] [place] [address] Care Team Providers Care Legal Analyst Name Role Phone Wolfgang Serrano MD Primary Care Provider [phone] Unknown, Notinfile Unavailable Unavailable Santino Funk MD Unavailable [phone] Chuy Enriquez MD Unavailable [phone] Luis Felipe Cedillo MD Unavailable Marlene Thornton MD Unavailable Encounter Details Date Type Department Care Team (Late st Contact Info) Description 11/18/2023 10:00 AM ROCK WOOL INSULATOR [facility] [address] [facility] [address] [place] [address] Chuy Enriquez MD [address] [facility] [address] [place] [address] Nocturnal cough (Primary Dx); Lung [...] in a chcf (including now)? No 11/25/2021 Personal Safety Answer Date Recorded Getting School Help Needed Denies 10/10 Sex and Gender Information Value Date Recorded Sex Assigned at Not on file Legal Sex Male 3:25 PM ROCK WOOL INSULATOR Gender Identity Not on file Sexual Orientation [...] a 78 y.o. male is referred by [facility] for evaluation of lungs Background pulmonary history [...] Prior malignancy hx None Pertinent labs from [facility] and [facility] everywhere reviewed. Available imaging from [facility] personally reviewed Radiology reports from care everywhere [...] delayed healing, subsequent encounter Clotting disorder (CMS/HCC) ([facility]) Complex tear of medial meniscus of left knee as current injury Complex tear of medial meniscus of right knee as current injury Cramps of lower extremity Diverticulitis of colon Easy bruisability Fatigue Frequent urination Gastroesophageal reflux disease GERD Hypothyroidism Incontinence of urine Muscle weakness Osteoarthritis Osteoarthritis Peptic ulcer Peptic ulcer disease Seizures ([facility]) 1997 last seizure in 1997 SOB (shortness of breath) on exertion Subchondral insufficiency fracture of condyle of left femur ([facility]) ([facility]) Vertigo Vision changes Visual disturbance hx of [...] agitation Neurologic: awake/alert, no focal motor deficits WOOL INSULATOR documented in this encounter Miscellaneous Notes * Assessment & Plan Note - Chuy Enriquez MD - 11/18/2023 2:34 PM ROCK WOOL INSULATOR Associated Problem(s): Lung nodule RLL nodule in a patient without clear risk factors for pulmonary malignancy Recs: 1) Repeat chest CT is scheduled for January 2024 WOOL INSULATOR * Assessment & Plan Note - Chuy Enriquez MD - 11/18/2023 2:34 PM ROCK WOOL INSULATOR Associated Problem(s): Nocturnal cough Related to hiatal [...] able 6) Stay uptodate with health maintenance/vaccinations WOOL INSULATOR documented in this encounter Plan of Treatment Upcoming Encounters Date Type Department Care Team (Latest Contact Info) Description 10/23/2024 10:00 AM ROCK WOOL INSULATOR Hospital Encounter [facility] Operating Room [id number] [place] [address] [place] [address] [address] [address] 10/23/2024 10:00 AM ROCK WOOL INSULATOR - 10/23/2024 1:00 PM ROCK WOOL INSULATOR Surgery [facility] Operating Room [id number] [place] [address] [place] [address] [address] ARTHROPLASTY TOTAL KNEE LEFT Scheduled Procedures Name Priority Associated Diagnoses Date/Ti me ARTHROPLASTY TOTAL KNEE left knee osteoarthritis 10/23/2024 10:00 AM ROCK WOOL INSULATOR ESOPHAGOGASTRODUODENOSCOPY Dysphagia, unspecified type documented as of this encounter Visit Diagnoses Diagnosis Nocturnal cough- Primary Lung nodule Other diseases of lung, not elsewhere classified documented in this encounter Care Teams Legal Analyst Relationship Specialty Start Date End Date Wolfgang Serrano MD PCP - General Family Medicine 05/05/23 08/02/24 Unknown, Notinfile 03/12/22 [place] [address] [address] [facility] [address] [place] [address] 03/12/22 Chuy Enriquez MD [address] [facility] [address] [place] [address] Consulting Physician Pulmonary Disease 10/13/23 Luis Felipe Cedillo MD [address] [facility] [address] [place] [address] Consulting Physician Gastroenterology 10/13/23 Marlene Thornton MD [address] [facility] [address] [address] Surgeon Vascular Surgery 11/10/23 documented as of this encounter
--- OUTSIDE RECORDS SUMMARY | 2024-10-11 03:03 | XMS_ITS | Encounter Summary ---
Author Organization [facility] Address [address] [place] [address] Phone Care Team Providers Care Machine Shorthand Reporter Name Role Phone Wolfgang Serrano MD Primary Care Provider Unknown, Notinfile Unavailable Unavailable Santino Funk MD Unavailable Chuy Enriquez MD Unavailable [phone] Luis Felipe Cedillo MD Unavailable [phone] Marlene Thornton MD Unavailable [phone] Reason for Referral * Diagnostic Imaging (Routine) - Pending Review Specialty Diagnoses / Procedures Referred By Contac t Referred To Contact Diagnoses Infrarenal abdominal aortic aneurysm (AAA) without rupture (HCC) Procedures US Duplex Scan of Aorta; Inferior Vena Cava, Iliac, Limited or Unilateral Marlene Thornton MD [address] [facility] [address] [address] Phone: tel: fax: [facility] (All Locations) Referral ID Status Reason Start Date Expiration Date V isits Requested Visits Authorized [id number] Pending Review 11/12/2023 12/11/2024 1 1 R SHERIFF Reason for Visit * Reason Comments New Patient Encounter Details Date Type Department Care Team (Late st Contact Info) Description 11/12/2023 9:00 AM UNDER SHERIFF Office Visit [facility] Surgery [address] [facility] 8[address] [place] [address] [place] [address] Marlene Thornton MD [address] [place] [address] Infrarenal abdominal aortic aneurysm (AAA) without rupture [...] relatives? Three times a week 11/25/2021 Attends [employer] Not on file 11/25 Active Member [...] in a retirement (including now)? No 11/25/2021 Personal Safety Answer Date Recorded Getting School Help Needed Denies 10/10 Sex and Gender Information Value Date Recorded Sex Assigned at Not on file Legal Sex Male 3:25 PM UNDER SHERIFF Gender Identity Not on file Sexual Orientation Not on file documented as of this encounter Last Filed Vital Signs Vital Sign Reading Time Taken Comments Blood Pressure 132/83 11/12/2023 8:16 AM UNDER SHERIFF Pulse 93 11/12/2023 8:16 AM UNDER SHERIFF Temperature - - Respiratory Rate - - Oxygen Saturation 97% 11/12/2023 8:16 AM UNDER SHERIFF Inhaled Oxygen Concentration - - Weight 99.8 kg (220 lb) 11/12/2023 8:16 AM UNDER SHERIFF Height 180.3 cm (5' 11 ) 11/12/2023 8:16 AM UNDER SHERIFF Body Mass Index 30.68 11/12/2023 8:16 AM UNDER SHERIFF documented in this encounter Progress Notes * [...] delayed healing, subsequent encounter Clotting disorder (CMS/HCC) ([facility]) Complex tear of medial meniscus of left knee as current injury Complex tear of medial meniscus of right knee as current injury Cramps of lower extremity Diverticulitis of colon Easy bruisability Fatigue Frequent urination Gastroesophageal reflux disease GERD Hypothyroidism Incontinence of urine Muscle weakness Osteoarthritis Osteoarthritis Peptic ulcer Peptic ulcer disease Seizures ([facility]) 1997 last seizure in 1997 SOB (shortness of breath) on exertion Subchondral insufficiency fracture of condyle of left femur (CMS/HCC) ([facility]) Vertigo Vision changes Visual disturbance hx of [...] Marlene Thornton MD at 11/12/2023 12:02 PM UNDER SHERIFF R SHERIFF R SHERIFF Associated attestation - Marlene Thornton MD - 11/12/2023 12:02 PM UNDER SHERIFF I have seen and examined the patient. [...] (Latest Contact Info) Description 10/23/2024 10:00 AM UNDER SHERIFF Hospital Encounter [facility] Operating Room [address] [place] [address] [place] [address] [address] 10/23/2024 10:00 AM UNDER SHERIFF - 10/23/2024 1:00 PM UNDER SHERIFF Surgery [facility] Operating Room [address] [place] [address] [place] [address] [address] ARTHROPLASTY TOTAL KNEE LEFT Scheduled Orders Name Type Priority Associated Diagnoses Orde r Schedule US Duplex Scan of Aorta; Inferior Vena Cava, Iliac, Limited or Unilateral Imaging Schedule Routine, Read Routine (OP Routine) Infrarenal abdominal aortic aneurysm (AAA) without rupture (HCC) Expected: 11/12/2024, Expires: 05/12/2025 Scheduled Procedures Name Priority Associated Diagnoses Date/Ti me ARTHROPLASTY TOTAL KNEE left knee osteoarthritis 10/23/2024 10:00 AM UNDER SHERIFF ESOPHAGOGASTRODUODENOSCOPY Dysphagia, unspecified type documented as of [...] 01/07/2024 added in this encounter Care Teams Machine Shorthand Reporter Relationship Specialty Start Date End Date Wolfgang Serrano MD PCP - General Family Medicine 05/05/23 08/02/24 Unknown, Notinfile 03/12/22 [place] [address] [facility] [address] [place] [address] 03/12/22 Chuy Enriquez MD [address] [facility] [address] [place] [address] Consulting Physician Pulmonary Disease 10/13/23 Luis Felipe Cedillo MD [address] [facility] [address] [address] Consulting Physician Gastroenterology 10/13/23 Marlene Thornton MD [address] [facility] [address] [address] Surgeon Vascular Surgery 11/10/23 documented as of this encounter
--- OUTSIDE RECORDS SUMMARY | 2024-10-11 03:03 | XMS_ITS | Encounter Summary ---
Author Organization [facility] Address [address] [facility] [address] [place] [address] Care Team Providers Care Managing Principal Name Role Phone Santino Funk MD Primary Care Provider + Unknown, Notinfile Unavailable Unavailable Santino Funk MD Unavailable [phone] Encounter Details Date Type Department Care Team (Latest Contact Info) Description 12/01/2022 3:43 PM FLEECE TIER - 12/01/2022 11:59 PM FLEECE TIER Hospital Encounter [facility] [address] [address] Discharge Disposition: Discharge to home [...] a skilled nursing (including now)? No 11/25/2021 Sex and Gender Information Value Date Recorded Sex Assigned at Not on file Legal Sex Male 3:25 PM FLEECE TIER Gender Identity Not on file Sexual Orientation [...] (Latest Contact Info) Description 10/23/2024 10:00 AM [facility] Hospital Encounter [facility] Operating Room [address] [place] [address] [place] [address] [address] 10/23/2024 10:00 AM FLEECE TIER - 10/23/2024 1:00 PM [facility] Surgery [facility] Operating Room [address] [place] [address] [place] [address] [address] ARTHROPLASTY TOTAL KNEE LEFT Scheduled Procedures Name Priority Associated Diagnoses Date/Ti me ARTHROPLASTY TOTAL KNEE left knee osteoarthritis 10/23/2024 10:00 AM FLEECE TIER ESOPHAGOGASTRODUODENOSCOPY Dysphagia, unspecified type documented as of this encounter Procedures Procedure Name Priority Date/Time Associated Diagnosis Comments XR KNEE BILATERAL 3 VIEWS Schedule Routine, Read Routine (OP Routine) 12/01/2022 4:01 PM FLEECE TIER Primary osteoarthritis of both knees Hx of total knee replacement, right documented in this encounter Results * XR Knee Bilateral 3 Views (12/01/2022 4:01 PM FLEECE TIER) Anatomical Region Laterality Modality Lower Extremities, Knee Bilateral Computed Radiography Narrative 12/01/2022 4:01 PM FLEECE TIER Radiographs of bilateral knees reviewed and interpreted these demonstrate well-positioned total knee arthroplasty in the right with advanced [id number] medial and patellofemoral joint space narrowing on the left consistent with grade 4 osteoarthritis George Sepulveda MD IMG XR PROCEDURES Final R esult documented in this encounter Visit Diagnoses Not on filedocumented in this encounter Care Teams Managing Principal Relationship Specialty [place] [address] [address] [facility] [place] [address] PCP - General Internal Medicine 09/30/22 05/04/23 Unknown, Notinfile 03/12/22 [place] [address] [address] [facility] [place] [address] 03/12/22 documented as of this encounter
--- OUTSIDE RECORDS SUMMARY | 2024-10-11 03:03 | XMS_ITS | Encounter Summary ---
Author Organization [facility] Healthcare Address [address] [place] [address] Care Team Providers Care Fagot Heater Helper Name Role Phone Wolfgang Serrano MD Primary Care Provider [phone] Unknown, Notinfile Unavailable Unavailable Santino Funk MD Unavailable [phone] hCuy Enriquez MD Unavailable [phone] Luis Felipe Cedillo MD Unavailable [phone] Reason for Referral * Procedure (Routine) - Authorized Specialty Diagnoses / Procedures Referred By Contac t Referred To Contact Diagnoses Biceps tendinitis of left upper extremity Tear of left glenoid labrum, initial encounter Procedures Large Joint (Hip, Knee, Shoulder) Injection: [place] [address] [place] [address] Phone: tel: fax: [facility] Referral ID Status Reason Start Date Expiration Date V isits Requested Visits Authorized [id number] Authorized 11/03/2023 12/02/2024 1 1 MIXER * Procedure (Routine) - Authorized Specialty Diagnoses / Procedures Referred By Contac t Referred To Contact Diagnoses Primary osteoarthritis of both knees Procedures Large Joint (Hip, Knee, Shoulder) [place]: [place] [address] [place] [address] Phone: tel: fax: [facility] Referral ID Status Reason Start Date Expiration Date V isits Requested Visits Authorized [id number] Authorized 11/03/2023 12/02/2024 1 1 MIXER * Diagnostic Imaging (Routine) - Closed Specialty Diagnoses / Procedures Referred By Contac t Referred To Contact Diagnoses Primary osteoarthritis of both knees Procedures XR Knee Right 3 View Carol Aceves [place] [id number] [place] [address] Phone: tel: fax: [facility] Referral ID Status Reason Start Date Expiration Date Visits Re quested Visits Authorized [id number] Closed 11/03/2023 12/02/2024 1 1 MIXER Reason for Visit * Reason Comments Follow-up Follow-up Follow-up Encounter Details Date Type Department Care Team (Latest Contact Info) Description 11/03/2023 10:15 AM CHIP MIXER Office Visit [facility] Orthopedics and Sports Medicine at [address] [address] Carol Aceves PA [address] [place] [address] Primary osteoarthritis of both knees (Primary Dx); [...] relatives? Three times a week 11/25/2021 Attends [employer] Not on file 11/25 Active Member [...] on file Legal Sex Male 3:25 PM CHIP MIXER Gender Identity Not on file Sexual Orientation Not on file documented as of this encounter Last Filed Vital Signs Vital Sign Reading Time Taken Comments Blood Pressure - - Pulse - - Temperature - - Respiratory Rate - - Oxygen Saturation - - Inhaled Oxygen Concentration - - Weight 99.8 kg (220 lb) 11/03/2023 10:02 AM CHIP MIXER Height 180.3 cm (5' 11 ) 11/03/2023 10:02 AM CHIP MIXER Body Mass Index 30.68 11/03/2023 10:02 AM CHIP MIXER documented in this encounter Progress Notes * [...] will follow up as needed. LORI Herman MIXER documented in this encounter Plan of Treatment Upcoming Encounters Date Type Department Care Team (Latest Contact Info) Description 10/23/2024 10:00 AM CHIP MIXER Hospital Encounter [facility] Operating Room [address] [place] [address] [place] [address] [address] 10/23/2024 10:00 AM CHIP MIXER - 10/23/2024 1:00 PM CHIP MIXER Surgery [facility] Operating Room [address] [place] [address] [place] [address] [address] [facility] [address] [place] [address] ARTHROPLASTY TOTAL KNEE LEFT Scheduled Procedures Name Priority Associated Diagnoses Date/Ti me ARTHROPLASTY TOTAL KNEE left knee osteoarthritis 10/23/2024 10:00 AM CHIP MIXER ESOPHAGOGASTRODUODENOSCOPY Dysphagia, unspecified type documented as of this encounter Procedures Procedure Name Priority Date/Time Associated Diagnosis Comments XR KNEE RIGHT 3 VIEWS Schedule Routine, Read Routine (OP Routine) 11/03/2023 11:23 AM CHIP MIXER Primary osteoarthritis of both knees [place] ARTHROCENTESIS ASPIR&/INJ MAJOR JT/BURSA W/O US Routine 11/03/2023 10:15 AM CHIP MIXER Biceps tendinitis of left upper extremity Tear of left glenoid labrum, initial encounter [place] ARTHROCENTESIS ASPIR&/INJ MAJOR JT/BURSA W/O US Routine 11/03/2023 10:15 AM CHIP MIXER Primary osteoarthritis of both knees documented in this encounter Results * XR Knee Right 3 View (11/03/2023 11:23 AM CHIP MIXER) Anatomical Region Laterality Modality Lower Extremities, Knee Right Computed Radiography Narrative 11/03/2023 11:23 AM CHIP MIXER My interpretation of his x-rays today: ??Three views of his right knee including weight-bearing AP, lateral, and sunrise views show that the instrumentation from his total knee remains in good position. ??There has been no migration or failure of any of the components. ??His knee appears congruent and well aligned. us Carol SANDOVAL IMG XR PROCEDURES Final Resu lt * [place] ARTHROCENTESIS ASPIR&/INJ MAJOR JT/BURSA W/O US (11/03/2023 10:15 AM CHIP MIXER) Narrative Carol Aceves PA - 11/03/2023 10:15 AM CHIP MIXER Carol Aceves PA ? 11/03/2023 11:32 AM [...] SANDOVAL IN CLINIC/BEDSIDE ORDERABLES Final Result * [place] ARTHROCENTESIS ASPIR&/INJ MAJOR JT/BURSA W/O US (11/03/2023 10:15 AM CHIP MIXER) Narrative Carol Aceves PA - 11/03/2023 10:15 AM CHIP MIXER Carol Aceves PA ? 11/03/2023 11:32 AM [...] of Local Anesthesia Given 11/03/2023 10:15 AM CHIP MIXER 4 mL Left Knee lidocaine (XYLOCAINE) 10 mg/mL (1 %) injection 4 mL 4 mL, One-Time Injection, Starting on Wed11/03/23 at 1015, For 1 dose, Indications: Administration of Local AnesthesiaIndications:Adminis tration of Local Anesthesia Given 11/03/2023 10:15 AM CHIP MIXER 4 mL Left Shoulder methylPREDNISolone acetate (DEPO-medrol) injection 80 mg 80 mg, intra-articular, One-Time Injection, Starting on Wed11/03/23 at 1015, For 1 doseIndications:Primary osteoarthritis of both knees Given 11/03/2023 10:15 AM CHIP MIXER 80 mg Left Knee methylPREDNISolone acetate (DEPO-medrol) injection 80 mg 80 mg, intra-articular, One-Time Injection, Starting on Wed11/03/23 at 1015, For 1 doseIndications:Biceps tendinitis of left upper extremity,Tear of left glenoid labrum, initial encounter Given 11/03/2023 10:15 AM CHIP MIXER 80 mg Left Shoulder documented in this encounter Care Teams Fagot Heater Helper Relationship Specialty Start Date End Date Wolfgang Serrano MD PCP - General Family Medicine 05/05/23 08/02/24 Unknown, Notinfile 03/12/22 [place] [address] [address] [place] [address] 03/12/22 Chuy Enriquez MD [address] [place] [address] Consulting Physician Pulmonary Disease 10/13/23 Luis Felipe Cedillo MD [address] [address] Consulting Physician Gastroenterology 10/13/23 documented as of this encounter
--- OUTSIDE RECORDS SUMMARY | 2024-10-11 03:03 | XMS_ITS | Encounter Summary ---
Author Organization [facility] Address [address] [facility] [address] [place] [address] Care Team Providers Care Product Managent Intern Name Role Phone Santino Funk MD Primary Care Provider + Unknown, Notinfile Unavailable Unavailable Santino Funk MD Unavailable [phone] Reason for Visit * Reason Onset Date Comments Medication Problem 05/04/2023 Med Management 05/04/2023 Encounter Details Date Type Department Care Team (Late st Contact Info) Description 05/04/2023 Telephone [facility] Orthopedics & Sports Medicine at [place] [id number] [address] George Sepulveda MD [address] [place] [address] Medication Problem; Med Management Social History [...] on file Legal Sex Male 3:25 PM ANTENNA RIGGER Gender Identity Not on file Sexual Orientation Not on file documented as of this encounter Miscellaneous Notes * Telephone Encounter - Paty López - 05/04/2023 10:38 AM CDT Called and notified patient * Telephone Encounter - Paty López - 05/04/2023 10:04 AM CDT Silvia from [facility] pharmacy called and stated patient picked up script for tizanidine 2 mg tabletprescribed by Nayan Mahajan. A script for flexeril 5 mg tablet was sent to the pharmacy from our officetoday. Silvia [facility] [phone] documented in this encounter Plan of Treatment Upcoming Encounters Date Type Department Care Team (Latest Contact Info) Description 10/23/2024 10:00 AM ANTENNA RIGGER Hospital Encounter [facility] Operating Room [id number] [place] [address] [place] [address] [id number] 10/23/2024 10:00 AM ANTENNA RIGGER - 10/23/2024 1:00 PM ANTENNA RIGGER Surgery [facility] Operating Room [address] [place] [address] [place] [address] [id number] ARTHROPLASTY TOTAL KNEE LEFT Scheduled Procedures Name Priority Associated Diagnoses Date/Ti me ARTHROPLASTY TOTAL KNEE left knee osteoarthritis 10/23/2024 10:00 AM ANTENNA RIGGER ESOPHAGOGASTRODUODENOSCOPY Dysphagia, unspecified type documented as of this encounter Visit Diagnoses Not on filedocumented in this encounter Care Teams Product Managent Intern Relationship Specialty [place] [address] [id number] PCP - General Internal Medicine 09/30/22 05/04/23 Unknown, Notinfile 03/12/22 [place] [address] [address] 03/12/22 documented as of this encounter
--- OUTSIDE RECORDS SUMMARY | 2024-10-11 03:03 | XMS_ITS | Encounter Summary ---
Author Organization [facility] Healthcare Address [address] [place] [address] Care Team Providers Care Online Facilitator Name Role Phone Wolfgang Serrano MD Primary Care Provider [phone] Unknown, Notinfile Unavailable Unavailable Santino Funk MD Unavailable [phone] Chuy Enriquez MD Unavailable Luis Felipe Cedillo MD Unavailable Marlene Thornton MD Unavailable [phone] Encounter Details Date Type Department Care Team (Late st Contact Info) Description 11/18/2023 Orders Only [facility] [address] [facility] [address] [place] [address] Cuhy Enriquez MD [address] [address] [place] [address] Lung nodule (Primary Dx) Social [...] relatives? Three times a week 11/25/2021 Attends [employer] Services Not on file 11/25 Active Member [...] on file Legal Sex Male 3:25 PM BALLOON ARTIST Gender Identity Not on file Sexual Orientation Not on file documented as of this encounter Plan of Treatment Upcoming Encounters Date Type Department Care Team (Latest Contact Info) Description 10/23/2024 10:00 AM BALLOON ARTIST Hospital Encounter [facility] Operating Room [address] [place] [address] [place] [address] [facility] [address] [place], [place] [id number] 10/23/2024 10:00 AM BALLOON ARTIST - 10/23/2024 1:00 PM BALLOON ARTIST Surgery [facility] Operating Room [address] [place] [address] [place] [address] [facility] [address] [place], [place] [id number] ARTHROPLASTY TOTAL KNEE LEFT Scheduled Procedures Name Priority Associated Diagnoses Date/Ti me ARTHROPLASTY TOTAL KNEE left knee osteoarthritis 10/23/2024 10:00 AM BALLOON ARTIST ESOPHAGOGASTRODUODENOSCOPY Dysphagia, unspecified type documented as of this encounter Visit Diagnoses Diagnosis Lung nodule- Primary Other diseases of lung, not elsewhere classified documented in this encounter Care Teams Online Facilitator Relationship Specialty Start Date End Date Wolfgang Serrano MD PCP - General Family Medicine 05/05/23 08/02/24 Unknown, Notinfile 03/12/22 [place] [address] [facility] [address] [place] [address] 03/12/22 Chuy Enriquez MD [address] [facility] [address] [place] [address] Consulting Physician Pulmonary Disease 10/13/23 Luis Felipe Cedillo MD [address] [facility] [address] [place] [address] Consulting Physician Gastroenterology 10/13/23 Marlene Thornton MD [address] [address] Surgeon Vascular Surgery 11/10/23 documented as of this encounter
--- OUTSIDE RECORDS SUMMARY | 2024-10-11 03:04 | XMS_ITS | Encounter Summary ---
Author Organization [facility] Address [address] [facility] [address] [place] [address] Care Team Providers Care Punchboard Stuffer Name Role Phone Santino Funk MD Primary Care Provider + Unknown, Notinfile Unavailable Unavailable Santino Funk MD Unavailable [phone] Reason for Referral * Neurology (Routine) - Closed Specialty Diagnoses / Procedures Referred By Contac t Referred To Contact Diagnoses Abnormality of gait and mobility Idiopathic peripheral neuropathy Procedures EMG/[place] [address] [address] Phone: tel: fax: [facility] [id number] [place] [phone] Referral ID Status Reason Start Date Expiration Date Visits Re quested Visits Authorized [id number] Closed 09/30/2022 10/30/2023 1 1 GRAPHIC TYPEWRITER INSTALLER Reason for Visit * Reason Comments Alzheimer's Disease Encounter Details Date Type Department Care Team (Late st Contact Info) Description 09/30/2022 2:45 PM TELEGRAPHIC TYPEWRITER INSTALLER Office Visit [facility] [address] [facility] [address], [place] [address] [place] [address] [facility] [address], [place] [address] Alzheimer's disease (HCC) (Primary Dx); Restless leg [...] relatives? Three times a week 11/25/2021 Attends [employer] Services Not on file 11/25 Active Member [...] slept in a custodial (including now)? No 11/25/2021 Sex and Gender Information Value Date Recorded Sex Assigned at Not on file Legal Sex Male 3:25 PM TELEGRAPHIC TYPEWRITER INSTALLER Gender Identity Not on file Sexual Orientation Not on file documented as of this encounter Last Filed Vital Signs Vital Sign Reading Time Taken Comments Blood Pressure 128/82 09/30/2022 2:51 PM TELEGRAPHIC TYPEWRITER INSTALLER Pulse 57 09/30/2022 2:51 PM TELEGRAPHIC TYPEWRITER INSTALLER Temperature - - Respiratory Rate 16 09/30/2022 2:51 PM TELEGRAPHIC TYPEWRITER INSTALLER Oxygen Saturation 97% 09/30/2022 2:51 PM TELEGRAPHIC TYPEWRITER INSTALLER Inhaled Oxygen Concentration - - Weight 101.8 kg (224 lb 5.1 oz) 09/30/2022 2:51 PM TELEGRAPHIC TYPEWRITER INSTALLER Height 180.3 cm (5' 10.98 ) 09/30/2022 2:[address] Body Mass Index 31.3 09/30/2022 2:51 PM TELEGRAPHIC TYPEWRITER INSTALLER documented in this encounter Ordered Prescriptions Prescription [...] and symmetric in all four extremities. Coordination Onkqna-kn-duxa, rapid alternating movements and ovku-pb-vugm normal bilaterally without dysmetria. Gait Unsteady antalgic [...] insufficiency fracture of condyle of left femur ([facility] ([facility]) 08/30/2018 Closed fracture of left [...] of breast 02/01/2018 Edema 04/04/2020 Intermittent claudication ([facility]) ([facility]) 04/04/2020 Iron deficiency anemia 04/04/2020 Peripheral vascular disease ([facility] ([facility]) 04/04/2020 Pain due to total right knee replacement ([facility] ([facility]) 04/28/2022 Hamstring tendinitis of right thigh 04/28/2022 Quadriceps weakness 04/28/2022 Resolved Ambulatory Problems Diagnosis Date Noted No Resolved Ambulatory Problems Past Medical History: Diagnosis Date Acute gastric ulcer without hemorrhage or perforation Alzheimer's dementia ([facility]) Asthma Back pain Cataract Clotting disorder ([facility]) ([facility]) Cramps of lower extremity Diverticulitis of colon Easy bruisability Fatigue Frequent urination Gastroesophageal reflux disease Hypothyroidism Incontinence of urine Muscle weakness Osteoarthritis Peptic ulcer Seizures ([facility]) ([facility]) 1997 SOB (shortness of breath) [...] or 4 Frequency of Binge Drinking: Never GRAPHIC TYPEWRITER INSTALLER documented in this encounter Plan of Treatment Upcoming Encounters Date Type Department Care Team (Latest Contact Info) Description 10/23/2024 10:00 AM TELEGRAPHIC TYPEWRITER INSTALLER Hospital Encounter [facility] Operating Room [address] [place] [address] [place] [address] [facility] [address] [place] [address] 10/23/2024 10:00 AM TELEGRAPHIC TYPEWRITER INSTALLER - 10/23/2024 1:00 PM TELEGRAPHIC TYPEWRITER INSTALLER Surgery [facility] Operating Room [address] [place] [address] [place] [address] [facility] [address] [place] [address] ARTHROPLASTY TOTAL KNEE LEFT Scheduled Procedures Name Priority Associated Diagnoses Date/Ti me ARTHROPLASTY TOTAL KNEE left knee osteoarthritis 10/23/2024 10:00 AM TELEGRAPHIC TYPEWRITER INSTALLER ESOPHAGOGASTRODUODENOSCOPY Dysphagia, unspecified type documented as of this encounter Results * KARLA Reflex to Quantitative and dsDNA (10/26/2022 10:45 AM TELEGRAPHIC TYPEWRITER INSTALLER) KARLA Negative Negative MARVIN FISHER Comment: Interpretive [...] on 20. Blood 10/26/2022 10:4 5 AM TELEGRAPHIC TYPEWRITER INSTALLER 10/26/2022 10:45 AM TELEGRAPHIC TYPEWRITER INSTALLER us Nayan Mahajan II, MD LAB BLOOD ORDERABLES Final R esult MARVIN FISHER [address] [address] [facility] [place] [address] * Methylmalonic acid, serum (10/26/2022 10:45 AM TELEGRAPHIC TYPEWRITER INSTALLER) MMA 0.14 <=0.40 nmol/mL CERNER CH Comment: ADDITIONAL INFORMATION This test was developed and its performance characteristics determined by [facility] in a manner consistent with CLIA requirements. This test has not been cleared or approved by the U.S. Food and Drug Administration. Test Performed by: [facility] [place] [address] De Alcholizer: Byron Nance M.D. Ph.D.; CLIA# [id number] Blood 10/26/2022 10:4 5 AM TELEGRAPHIC TYPEWRITER INSTALLER 10/26/2022 10:45 AM TELEGRAPHIC TYPEWRITER INSTALLER us Nayan Mahajan II, MD LAB BLOOD ORDERABLES Final R esult Performing Organization Address [facility] de Phone Number MARVIN FISHER [address] [address] [email or web address] [address] * Protein electrophoresis with reflex, serum (10/26/2022 10:45 AM TELEGRAPHIC TYPEWRITER INSTALLER) Protein, sr 6.3 6.2 - 8.2 g/dL [...] CERNER CH Blood 10/26/2022 10:4 5 AM TELEGRAPHIC TYPEWRITER INSTALLER 10/26/2022 10:45 AM TELEGRAPHIC TYPEWRITER INSTALLER us Nayan Mahajan II, MD LAB BLOOD ORDERABLES Final R esult Performing Organization Address [facility] de Phone Number MARVIN FISHER [address] [address] [place] [address] * Zinc (10/26/2022 10:35 AM TELEGRAPHIC TYPEWRITER INSTALLER) Pathologist [facility] Zinc 74 60 - 106 mcg/dL [facility] Comment: ADDITIONAL INFORMATION This test was developed and its performance characteristics determined by [facility] in a manner consistent with CLIA requirements. This test has not been cleared or approved by the U.S. Food and Drug Administration. Test Performed by: [facility] [address] [place] [address] De Alcholizer: Byron Nance M.D. Ph.D.; CLIA# [id number] Blood 10/26/2022 10:3 5 AM TELEGRAPHIC TYPEWRITER INSTALLER 10/26/2022 10:35 AM TELEGRAPHIC TYPEWRITER INSTALLER Nayan Mahajan II, MD LAB BLOOD ORDERABLES Final R esult Performing Organization Address [facility] de Phone Number [facility] [address] [address] [employer] [place] [address] * Erythrocyte sedimentation rate (10/26/2022 10:35 AM TELEGRAPHIC TYPEWRITER INSTALLER) [facility] Erythrocyte sedimentation rate 5 1 - 20 mm/hr [facility] Blood 10/26/2022 10:3 5 AM TELEGRAPHIC TYPEWRITER INSTALLER 10/26/2022 10:35 AM TELEGRAPHIC TYPEWRITER INSTALLER Nayan Mahajan II, MD LAB BLOOD ORDERABLES Final R esult Performing Organization Address [facility] de Phone Number [facility] [address] [address] [facility] [place] [address] * Vitamin E (10/26/2022 10:10 AM TELEGRAPHIC TYPEWRITER INSTALLER) [facility] Tocopherol (Vit E) 10.8 5.5 - 17.0 mg/L [facility] Comment: ADDITIONAL INFORMATION This test was developed and its performance characteristics determined by [facility] in a manner consistent with CLIA requirements. This test has not been cleared or approved by the U.S. Food and Drug Administration. Test Performed by: [facility] [address] [place] [address] De Alcholizer: Byron Nance M.D. Ph.D.; CLIA# [id number] Blood 10/26/2022 10:1 0 AM TELEGRAPHIC TYPEWRITER INSTALLER 10/26/2022 3:14 PM TELEGRAPHIC TYPEWRITER INSTALLER Nayan Mahajan II, MD LAB BLOOD ORDERABLES Final R esult Performing Organization Address [facility] Co de Phone Number MARVIN FISHER [address] [address] [facility] [employer] [place], [place] [id number] * Folate (10/26/2022 10:10 AM TELEGRAPHIC TYPEWRITER INSTALLER) Folic acid 5.4 >=5.0 ng/mL [facility] Comment:Hemolysis present. R esults may be affected. Blood 10/26/2022 10:1 0 AM TELEGRAPHIC TYPEWRITER INSTALLER 10/26/2022 10:31 AM TELEGRAPHIC TYPEWRITER INSTALLER Nayan Mahajan II, MD LAB BLOOD ORDERABLES Final R esult Performing Organization Address [facility] Co de Phone Number MARVIN [address] [address] [facility] [place] [address] * Vitamin B12 (10/26/2022 10:10 AM TELEGRAPHIC TYPEWRITER INSTALLER) Vitamin B12 791 230 - 1,250 pg/mL [facility] Blood 10/26/2022 10:1 0 AM TELEGRAPHIC TYPEWRITER INSTALLER 10/26/2022 10:31 AM TELEGRAPHIC TYPEWRITER INSTALLER Nayan Mahajan II, MD LAB BLOOD ORDERABLES Final R esult Performing Organization Address [facility] Co de Phone Number MARVIN [address] [address] [facility] [place] [place] [address] * EMG/NCV - (10/26/2022 9:39 AM TELEGRAPHIC TYPEWRITER INSTALLER) Anatomical Region Laterality Modality EMG, EMG Narrative 10/26/2022 3:59 PM TELEGRAPHIC TYPEWRITER INSTALLER This EMG nerve conduction velocity was performed [...] documented as of this encounter Care Teams Punchboard Stuffer Relationship Specialty [place] [address] [address] [facility] [address] PCP - General Internal Medicine 09/30/22 05/04/23 Unknown, Notinfile 03/12/22 [place] [address] [address] [facility] [address] 03/12/22 documented as of this encounter
--- OUTSIDE RECORDS SUMMARY | 2024-10-11 03:04 | XMS_ITS | Encounter Summary ---
Author Organization [facility] Address [address] [facility] [address] [place] [address] Care Team Providers Care Watch Train Assembler Name Role Phone Santino Funk MD Primary Care Provider + Reason for Referral * Diagnostic Imaging (Routine) - Closed Specialty Diagnoses / Procedures Referred By Contboone t Referred To Contact Diagnoses Hx of total knee replacement, right Procedures XR Knee Right 3 [place] [address] [address] Phone: tel: fax: [facility] Referral ID Status Reason Start Date Expiration Date Visits Re quested Visits Authorized [id number] Closed 01/09/2022 02/08/2023 1 1 Reason for Visit * Reason Comments Follow-up 1 mo f/u Post-op 1 mo f/u Encounter Details Date Type Department Care Team (Late st Contact Info) Description 01/09/2022 8:00 AM CDT Office Visit [facility] [address] [address] [place] [address] [address] Hx of total knee replacement, [...] file Legal Sex Male 3:25 PM RETAIL LOAN ORIGINATOR Gender Identity Not on file Sexual Orientation [...] Contact Info) Description 10/23/2024 10:00 AM [facility] Hospital Encounter [facility] Operating Room [address] [place] [address] [place] [address] [place] [address] 10/23/2024 10:00 AM RETAIL LOAN ORIGINATOR - 10/23/2024 1:00 PM RETAIL LOAN ORIGINATOR Surgery [facility] Operating Room [address] [place] [address] [place] [address] [facility] [address] [place] [address] ARTHROPLASTY TOTAL KNEE LEFT Scheduled Procedures Name Priority Associated Diagnoses Date/Ti me ARTHROPLASTY TOTAL KNEE left knee osteoarthritis 10/23/2024 10:00 AM RETAIL LOAN ORIGINATOR ESOPHAGOGASTRODUODENOSCOPY Dysphagia, unspecified type documented as of [...] documented as of this encounter Care Teams Watch Train Assembler Relationship Specialty [place] [address] [facility] [address] [place] [address] PCP - General 11/12/16 03/11/22 documented as of this encounter
--- OUTSIDE RECORDS SUMMARY | 2024-10-11 03:04 | XMS_ITS | Encounter Summary ---
Author Organization [facility] Medical Group Address [address] [facility] [address] [place] [address] Care Team Providers Care Lgsw Name Role Phone No, Physician Primary Care Provider [phone] Unknown, Notinfile Unavailable Unavailable Santino Funk MD Unavailable Encounter Details Date Type Department Care Team (Late st Contact Info) Description 09/09/2022 Orders Only [facility] [address] [facility] [address] [place] [address] [place]a Park, LORI [address] [facility] [address] [place] [address] Social History Tobacco Use Types Packs/Day Years Used Date Smoking Tobacco: Former Cigarettes 1 966 - 0163 Smokeless Tobacco: Never Alcohol Use Standard Drinks/Week [...] file Legal Sex Male 3:25 PM MACHINE WORKER Gender Identity Not on file Sexual [...] Contact Info) Description 10/23/2024 10:00 AM MACHINE WORKER Hospital Encounter [facility] Operating Room [address] [place] [address] [place] [address] [facility] [address] [place] [address] 10/23/2024 10:00 AM MACHINE WORKER - 10/23/2024 1:00 PM MACHINE WORKER Surgery [facility] Operating Room [address] [place] [address] [place] [address] [id number] ARTHROPLASTY TOTAL KNEE LEFT Scheduled Procedures Name Priority Associated Diagnoses Date/Ti me ARTHROPLASTY TOTAL KNEE left knee osteoarthritis 10/23/2024 10:00 AM MACHINE WORKER ESOPHAGOGASTRODUODENOSCOPY Dysphagia, unspecified type documented as of this encounter Visit Diagnoses Not on filedocumented in this encounter Discontinued Medications Medication Sig Discontinue Reason Start Date End Da te diclofenac DR (VOLTAREN) 75 mg EC tablet TAKE 1 TABLET BY MOUTH TWICE DAILY WITH FOOD. DO NOT TAKE WITH OTHER ANTI-INFLAMMATORY MEDICATION 08/10/2022 09/09/2022 documented as of this encounter Care Teams Lgsw Relationship Specialty Start Date End Date No, Physician PCP - General 05/14/22 09/29/22 Unknown, Notinfile 03/12/22 [place] [address] [facility] [place] [address] 03/12/22 documented as of this encounter
--- OUTSIDE RECORDS SUMMARY | 2024-10-11 03:04 | XMS_ITS | Encounter Summary ---
Author Organization [facility] Medical Group Address [address] [facility] [address] [place] [address] Care Team Providers Care Customer Service Associate Name Role Phone Santino Funk MD Primary Care Provider + Reason for Referral * Procedure (Routine) - Closed Specialty Diagnoses / Procedures Referred By Contac t Referred To Contact Diagnoses Primary osteoarthritis of both knees Procedures Large Joint (Hip, Knee, Shoulder) Injection: L knee Carol Aceves [place] [address] [place] [address] Phone: tel: fax: [facility] Medical Group Referral ID Status Reason Start Date Expiration Date Visits Re quested Visits Authorized [id number] Closed 02/10/2022 03/12/2023 1 1 Reason for Visit * Reason Comments Post-op Encounter Details Date Type Department Care Team (Latest Contact Info) Description 02/10/2022 8:00 AM CDT Office Visit [facility] [address] [address] [place] [address] [address] Aftercare following right knee joint [...] relatives? Three times a week 11/25/2021 Attends [employer] Not on file 11/25 Active Member [...] on file Legal Sex Male 3:25 PM SIGNAL INSPECTOR Gender Identity Not on file Sexual Orientation [...] he has been told by his employer, [employer],that he is not able to come back [...] (Latest Contact Info) Description 10/23/2024 10:00 AM SIGNAL INSPECTOR Hospital Encounter [facility] Operating Room [address] [place] [address] [place] [id number] [place] [address] 10/23/2024 10:00 AM SIGNAL INSPECTOR - 10/23/2024 1:00 PM SIGNAL INSPECTOR Surgery [facility] Operating Room [address] [place] [address] [place] [address] [address] ARTHROPLASTY TOTAL KNEE LEFT Scheduled Procedures Name Priority Associated Diagnoses Date/Ti me ARTHROPLASTY TOTAL KNEE left knee osteoarthritis 10/23/2024 10:00 AM SIGNAL INSPECTOR ESOPHAGOGASTRODUODENOSCOPY Dysphagia, unspecified type documented as of this encounter Procedures Procedure Name Priority Date/Time Associated Diagnosis Comments [place] ARTHROCENTESIS ASPIR&/INJ MAJOR JT/BURSA W/O US Routine 02/10/2022 8:00 AM CDT Primary osteoarthritis of both knees documented in this encounter Results * [place] ARTHROCENTESIS ASPIR&/INJ MAJOR JT/BURSA W/O US (02/10/2022 [...] mg documented in this encounter Care Teams Customer Service Associate Relationship Specialty [place] [address] [facility] [address] PCP - General 11/12/16 03/11/22 documented as of this encounter
--- OUTSIDE RECORDS SUMMARY | 2024-10-11 03:04 | XMS_ITS | Encounter Summary ---
Author Organization [facility] Medical Group Address [address] [facility] [address] [place] [address] Care Team Providers Care Solids Control Technician Name Role Phone Santino Funk MD Primary Care Provider + Unknown, Notinfile Unavailable Unavailable Santino Funk MD Unavailable [phone] Reason for Referral * Procedure (Routine) - Closed Specialty Diagnoses / Procedures Referred By Contac t Referred To Contact Diagnoses Primary osteoarthritis of both knees Procedures Large Joint (Hip, Knee, Shoulder) [place]jection: [place] [address] [address] Phone: tel: fax: [facility] Medical Group Referral ID Status Reason Start Date Expiration Date Visits Re quested Visits Authorized [id number] Closed 12/01/2022 12/31/2023 1 1 ND EQUIPMENT MECHANIC Reason for Visit * Reason Comments Injections Injections Encounter Details Date Type Department Care Team (Latest Contact Info) Description 12/01/2022 3:30 PM GROUND EQUIPMENT MECHANIC Office Visit [facility] Medical Group Orthopedics & Sports Medicine at [facility] [id number] [place] [phone] [place] [address] [address] Primary osteoarthritis of both knees [...] relatives? Three times a week 11/25/2021 Attends [employer] Services Not on file 11/25 Active Member [...] on file Legal Sex Male 3:25 PM GROUND EQUIPMENT MECHANIC Gender Identity Not on file Sexual [...] left side of their body. Special tests oZila: medial negative lateral negative Patellar apprehension: negative Patella J-sign: negative Posterior sag: negative REVIEW OF X-RAYS/STUDIES/LABS XR Knee Bilateral 3 Views Radiographs of bilateral knees reviewed and interpreted these demonstrate well- positioned total knee arthroplasty in the right with advanced qdtb-gr-wsiv medial and patellofemoral joint space narrowing on [...] on an as-needed basis. George Sepulveda MD ND EQUIPMENT MECHANIC documented in this encounter Plan of Treatment Upcoming Encounters Date Type Department Care Team (Latest Contact Info) Description 10/23/2024 10:00 AM GROUND EQUIPMENT MECHANIC Hospital Encounter [facility] Operating Room [address] [place] [address] [place] [address] [id number] 10/23/2024 10:00 AM GROUND EQUIPMENT MECHANIC - 10/23/2024 1:00 PM GROUND EQUIPMENT MECHANIC Surgery [facility] Operating Room [address] [place] [address] [place] [address] [id number] ARTHROPLASTY TOTAL KNEE LEFT Scheduled Procedures Name Priority Associated Diagnoses Date/Ti me ARTHROPLASTY TOTAL KNEE left knee osteoarthritis 10/23/2024 10:00 AM GROUND EQUIPMENT MECHANIC ESOPHAGOGASTRODUODENOSCOPY Dysphagia, unspecified type documented as of this encounter Procedures Procedure Name Priority Date/Time Associated Diagnosis Comments XR KNEE BILATERAL 3 VIEWS Schedule Routine, Read Routine (OP Routine) 12/01/2022 4:01 PM GROUND EQUIPMENT MECHANIC Primary osteoarthritis of both knees Hx of total knee replacement, right PA ARTHROCENTESIS ASPIR&/INJ MAJOR JT/BURSA W/O US Routine 12/01/2022 3:30 PM GROUND EQUIPMENT MECHANIC Primary osteoarthritis of both knees documented in this encounter Results * XR Knee Bilateral 3 Views (12/01/2022 4:01 PM GROUND EQUIPMENT MECHANIC) Anatomical Region Laterality Modality Lower Extremities, Knee Bilateral Computed Radiography Narrative 12/01/2022 4:01 PM GROUND EQUIPMENT MECHANIC Radiographs of bilateral knees reviewed and interpreted these demonstrate well-positioned total knee arthroplasty in the right with advanced cuqy-en-wnww medial and patellofemoral joint space narrowing on the left consistent with grade 4 osteoarthritis us George Sepulveda MD IMG XR PROCEDURES Final R esult * PA ARTHROCENTESIS ASPIR&/INJ MAJOR JT/BURSA W/O US (12/01/2022 3:30 PM GROUND EQUIPMENT MECHANIC) Narrative George Sepulveda MD - 12/01/2022 3:30 PM GROUND EQUIPMENT MECHANIC George Sepulveda MD ? 12/01/2022 ??4:43 PM [...] of Local Anesthesia Given 12/01/2022 4:43 PM GROUND EQUIPMENT MECHANIC 2 mL Left Knee methylPREDNISolone acetate (DEPO-medrol) injection 80 mg 80 mg, intra-articular, One-Time Injection, Starting on Wed12/01/22 at 1643, For 1 doseIndications:Primary osteoarthritis of both knees Given 12/01/2022 4:43 PM GROUND EQUIPMENT MECHANIC 80 mg Left Knee documented in this encounter Care Teams Solids Control Technician Relationship Specialty [place] [address] [facility] [place] [address] PCP - General Internal Medicine 12/21/22 7/25/23 Unknown, Notinfile 03/12/22 [place] [id number] [address] 03/12/22 documented as of this encounter
--- OUTSIDE RECORDS SUMMARY | 2024-10-11 03:04 | XMS_ITS | Encounter Summary ---
Author Organization [facility] Address [address] [place] [address] Phone Care Team Providers Care Lap Welder Name Role Phone No, Physician Primary Care Provider [phone] Unknown, Notinfile Unavailable Unavailable Santino Funk MD Unavailable [phone] Reason for Referral * Diagnostic Imaging (Routine) - Closed Specialty Diagnoses / Procedures Referred By Dillan mccallum Referred To Contact Diagnoses Swelling of both lower extremities Venous insufficiency Procedures US [place] [address] [address] [place] [address] Phone: tel: fax: [facility] (All Locations) Referral ID Status Reason Start Date Expiration Date Visits Re quested Visits Authorized [id number] Closed 06/02/2022 07/02/2023 1 1 Encounter Details Date Type Department Care Team (Late st Contact Info) Description 06/02/2022 Orders Only [facility] Surgery [address] [facility] [address], [place] [address] [place] [address] [address], [place] [address] Swelling of both lower extremities; [...] on file Legal Sex Male 3:25 PM VARNISHING UNIT OPERATOR Gender Identity Not on file Sexual Orientation Not on file documented as of this encounter Plan of Treatment Upcoming Encounters Date Type Department Care Team (Latest Contact Info) Description 10/23/2024 10:00 AM VARNISHING UNIT OPERATOR Hospital Encounter [facility] Operating Room [id number] [place] [address] [place] [address] [address] 10/23/2024 10:00 AM VARNISHING UNIT OPERATOR - 10/23/2024 1:00 PM VARNISHING UNIT OPERATOR Surgery [facility] Operating Room [address] [place] [address] [place] [address] [address] ARTHROPLASTY TOTAL KNEE LEFT Scheduled Procedures Name Priority Associated Diagnoses Date/Ti me ARTHROPLASTY TOTAL KNEE left knee osteoarthritis 10/23/2024 10:00 AM VARNISHING UNIT OPERATOR ESOPHAGOGASTRODUODENOSCOPY Dysphagia, unspecified type documented as [...] insufficiency documented in this encounter Care Teams Lap Welder Relationship Specialty Start Date End Date No, Physician PCP - General 05/14/22 09/29/22 Unknown, Notinfile 03/12/22 [place] [address] [address] [facility] [address] [place] [address] 03/12/22 documented as of this encounter
--- OUTSIDE RECORDS SUMMARY | 2024-10-11 03:04 | XMS_ITS | Encounter Summary ---
Author Organization [facility] Healthcare Address [address] [place] [address] Care Team Providers Care Medical Collector Name Role Phone Santino Funk MD Primary Care Provider + Encounter Details Date Type Department Care Team (Late st Contact Info) Description 12/17/2021 5:20 PM PAPER CUP HANDLE MACHINE OPERATOR Lab [address] [id number] Exposure to SARS-associated coronavirus Social History Tobacco [...] on file Legal Sex Male 3:25 PM PAPER CUP HANDLE MACHINE OPERATOR Gender Identity Not on file Sexual Orientation Not on file documented as of this encounter Plan of Treatment Upcoming Encounters Date Type Department Care Team (Latest Contact Info) Description 10/23/2024 10:00 AM PAPER CUP HANDLE MACHINE OPERATOR Hospital Encounter [facility] Operating Room [address] [place] [address] Grey Dykes MD [address] [place] [address] 10/23/2024 10:00 AM PAPER CUP HANDLE MACHINE OPERATOR - 10/23/2024 1:00 PM PAPER CUP HANDLE MACHINE OPERATOR Surgery [facility] Operating Room [address] [place] [address] [place] [address] [place] [address] ARTHROPLASTY TOTAL KNEE LEFT Scheduled Procedures Name Priority Associated Diagnoses Date/Ti me ARTHROPLASTY TOTAL KNEE left knee osteoarthritis 10/23/2024 10:00 AM PAPER CUP HANDLE MACHINE OPERATOR ESOPHAGOGASTRODUODENOSCOPY Dysphagia, unspecified type documented as of this encounter Procedures Procedure Name Priority Date/Time Associated Diagnosis Comments EGFR Routine 12/17/2021 2:48 PM PAPER CUP HANDLE MACHINE OPERATOR INFLUENZA A/B, RSV, AND COVID-19 PCR Routine 12/17/2021 2:41 PM PAPER CUP HANDLE MACHINE OPERATOR Exposure to SARS-associated coronavirus documented in this encounter Results * eGFR (12/17/2021 2:48 PM PAPER CUP HANDLE MACHINE OPERATOR) eGFR 59 mL/min/1. 73 m2 MARVIN FISHER [...] last reviewed 2021. Blood 12/17/2021 2:48 PM PAPER CUP HANDLE MACHINE OPERATOR 12/17/2021 5:04 PM PAPER CUP HANDLE MACHINE OPERATOR Santino Funk MD LAB BLOOD ORDERABLES Fin al Result Performing Organization Address City/[facility] Co de Phone Number MARVIN FISHER [address] [address] [employer] [place] [employer] [address] * Influenza A/B, RSV, and COVID-19 PCR Nasopharyngeal (12/17/2021 2:41 PM PAPER CUP HANDLE MACHINE OPERATOR) COVID-19 RNA Negative Negative [facility] Influenza A RNA Negative Negative [facility] Influenza B RNA Negative Negative [facility] RSV RNA Negative Negative [facility] Comment: Interpretive data: This test is performed using the [employer] Xpert Xpress CoV-2/Flu/RSV plus assay. This is [...] last revised 2021. First COVID-19 test? No [facility] Employeed in healthcare? Unknown [facility] Group care resident? Unknown [facility] Hospitalized? No [facility] Is patient in ICU? No [facility] Symptomatic as defined by CDC? Yes [facility] Nasopharyngeal 12/17/2021 2: 41 PM PAPER CUP HANDLE MACHINE OPERATOR 12/17/2021 9:14 PM PAPER CUP HANDLE MACHINE OPERATOR Narrative [facility] - 12/17/2021 10:18 PM PAPER CUP HANDLE MACHINE OPERATOR Date of Symptom Onset->12/17/21 Reason for testing?->Symptomatic Known exposure to confirmed or suspected COVID-19 case?->No Santino Funk MD LAB MICROBIOLOGY - GENER AL ORDERABLES Final Result Performing Organization Address [facility] Co de Phone Number MARVIN FISHER [address] [address] Department [place] [address] documented in this encounter Visit Diagnoses Diagnosis Exposure to SARS-associated coronavirus documented in this encounter Additional Health Concerns Infection Onset Date Last Indicated Resolved Time COVID: Suspected 12/17/2021 12/17/2021 12/17/2021 10:19 PM PAPER CUP HANDLE MACHINE OPERATOR documented as of this encounter Care Teams Medical Collector Relationship Specialty [place] [address] [facility] [place] [address] PCP - General 11/12/16 03/11/22 documented as of this encounter
--- OUTSIDE RECORDS SUMMARY | 2024-10-11 03:04 | XMS_ITS | Encounter Summary ---
Author Organization [facility] [place] Medical Group Address [address] [facility] [address] [place] [address] Care Team Providers Care Stage Electrician Helper Name Role Phone Unknown, Notinfile Primary Care Provider Unavail able Unknown, Notinfile Unavailable Unavailable Santino Funk MD Unavailable [phone] Encounter Details Date Type Department Care Team (Latest Contact Info) Description 04/28/2022 3:29 PM CDT - 04/28/2022 11:59 PM CDT Hospital Encounter [facility] [address] [address] Discharge Disposition: Discharge to home [...] relatives? Three times a week 11/25/2021 Attends Alevism Services Not on file 11/25 Active Member [...] on file Legal Sex Male 3:25 PM STORE COORDINATOR Gender Identity Not on file Sexual [...] (Latest Contact Info) Description 10/23/2024 10:00 AM STORE COORDINATOR Hospital Encounter [facility] Operating Room [address] [place] [address] [place] [address] [address] 10/23/2024 10:00 AM STORE COORDINATOR - 10/23/2024 1:00 PM STORE COORDINATOR Surgery [facility] Operating Room [address] [place] [address] [place] [address] [address] ARTHROPLASTY TOTAL KNEE LEFT Scheduled Procedures Name Priority Associated Diagnoses Date/Ti me ARTHROPLASTY TOTAL KNEE left knee osteoarthritis 10/23/2024 10:00 AM STORE COORDINATOR ESOPHAGOGASTRODUODENOSCOPY Dysphagia, unspecified type documented as [...] loosening or component failure. ??Left knee demonstrates cabc-vd-rqys tricompartmental joint space narrowing with subchondral sclerosis and spur formation consistent with grade 4 osteoarthritis George Sepulveda MD IMG XR PROCEDURES Final R esult documented in this encounter Visit Diagnoses Not on filedocumented in this encounter Care Teams Stage Electrician Helper Relationship Specialty Start Date End Date Unknown, Notinfile PCP - General 03/12/22 05/13/22 Unknown, Notinfile 03/12/22 [place] [address] [facility] [address] [place] [address] 03/12/22 documented as of this encounter
--- OUTSIDE RECORDS SUMMARY | 2024-10-11 03:04 | XMS_ITS | Encounter Summary ---
Author Organization [facility] Medical Group Address [address] [facility] [address] [place] [address] Care Team Providers Care Licensed Clinician Name Role Phone Santino Funk MD Primary Care Provider + Reason for Visit * Diagnostic Imaging (Routine) - Closed Specialty Diagnoses / Procedures Referred By Dillan mccallum Referred To Contact Diagnoses Hx of total knee replacement, right Procedures XR Knee Right [address] [place] [address] [address] Phone: tel: fax: [facility] Medical [facility] Referral ID Status Reason Start Date Expiration Date Visits Re quested Visits Authorized [id number] Closed 01/09/2022 02/08/2023 1 1 Encounter Details Date Type Department Care Team (Latest Contact Info) Description 01/09/2022 8:20 AM CDT - 01/09/2022 11:59 PM CDT Hospital Encounter [facility] [address] [address] Discharge Disposition: Discharge to home [...] file Legal Sex Male 3:25 PM ENVIRONMENTAL SCIENCES PROFESSOR Gender Identity Not on file Sexual [...] Contact Info) Description 10/23/2024 10:00 AM ENVIRONMENTAL SCIENCES PROFESSOR Hospital Encounter [facility] Operating Room [address] [place] [address] [place] [address] [address] 10/23/2024 10:00 AM ENVIRONMENTAL SCIENCES PROFESSOR - 10/23/2024 1:00 PM ENVIRONMENTAL SCIENCES PROFESSOR Surgery [facility] Operating Room [address] [place] [address] [place] [address] [address] ARTHROPLASTY TOTAL KNEE LEFT Scheduled Procedures Name Priority Associated Diagnoses Date/Ti me ARTHROPLASTY TOTAL KNEE left knee osteoarthritis 10/23/2024 10:00 AM ENVIRONMENTAL SCIENCES PROFESSOR ESOPHAGOGASTRODUODENOSCOPY Dysphagia, unspecified type documented as [...] on filedocumented in this encounter Care Teams Licensed Clinician Relationship Specialty [place] [address] [address] [[email or web address] [place] [address] PCP - General 11/12/16 03/11/22 documented as of this encounter
--- OUTSIDE RECORDS SUMMARY | 2024-10-11 03:04 | XMS_ITS | Encounter Summary ---
Author Organization [facility] Address [address] [place] [address] Care Team Providers Care Dynamite Packing Machine Feeder Name Role Phone Santino Funk MD Primary Care Provider + Unknown, Notinfile Unavailable Unavailable Santino Funk MD Unavailable [phone] Reason for Referral * Neurology (Routine) - Closed Specialty Diagnoses / Procedures Referred By Dillan mccallum Referred To Contact Diagnoses Abnormality of gait and mobility Idiopathic peripheral neuropathy Procedures EMG/[place] [address] [address] [address] Phone: tel: fax: [address] [phone] Referral ID Status Reason Start Date Expiration Date Visits Re quested Visits Authorized [id number] Closed 09/30/2022 10/30/2023 1 1 TION SPECIALIST Reason for Visit * Neurology (Routine) - Closed Specialty Diagnoses / Procedures Referred By Dillan mccallum Referred To Contact Diagnoses Abnormality of gait and mobility Idiopathic peripheral neuropathy Procedures EMG/[place] [address] [address] [address] Phone: tel: fax: [address] [phone] Referral ID Status Reason Start Date Expiration Date Visits Re quested Visits Authorized [id number] Closed 09/30/2022 10/30/2023 1 1 Encounter Details Date Type Department Care Team (Latest Contact Info) Description 10/26/2022 7:57 AM DONATION SPECIALIST - 10/26/2022 11:59 PM DONATION SPECIALIST Hospital Encounter [facility] Neurology Testing [address] [place] [address] Abnormality of gait and mobility; Idiopathic peripheral [...] relatives? Three times a week 11/25/2021 Attends Mandaeism Services Not on file 11/25 Active Member [...] on file Legal Sex Male 3:25 PM DONATION SPECIALIST Gender Identity Not on file Sexual [...] (Latest Contact Info) Description 10/23/2024 10:00 AM DONATION SPECIALIST Hospital Encounter [facility] Operating Room [address] [place] [address] [place] [address] [address] 10/23/2024 10:00 AM DONATION SPECIALIST - 10/23/2024 1:00 PM DONATION SPECIALIST Surgery [facility] Operating Room [address] [place] [address] [place] [address] [id number] ARTHROPLASTY TOTAL KNEE LEFT Scheduled Procedures Name Priority Associated Diagnoses Date/Ti me ARTHROPLASTY TOTAL KNEE left knee osteoarthritis 10/23/2024 10:00 AM DONATION SPECIALIST ESOPHAGOGASTRODUODENOSCOPY Dysphagia, unspecified type documented as of this encounter Procedures Procedure Name Priority Date/Time Associated Diagnosis Comments EMG/NCV Routine 10/26/2022 9:39 AM DONATION SPECIALIST Abnormality of gait and mobility Idiopathic peripheral neuropathy documented in this encounter Results * EMG/NCV - (10/26/2022 9:39 AM DONATION SPECIALIST) Anatomical Region Laterality Modality EMG, EMG Narrative 10/26/2022 3:59 PM DONATION SPECIALIST This EMG nerve conduction velocity was performed [...] neuropathy documented in this encounter Care Teams Dynamite Packing Machine Feeder Relationship Specialty [place] [address] [address] [address] PCP - General Internal Medicine 09/30/22 05/04/23 Unknown, Notinfile 03/12/22 [place] [address] [address] [address] 03/12/22 documented as of this encounter
--- OUTSIDE RECORDS SUMMARY | 2024-10-11 03:04 | XMS_ITS | Encounter Summary ---
Author Organization [facility] Medical Group Address [address] [facility] [address] [place] [address] Care Team Providers Care Hybrid Powertrain Development Engineer Name Role Phone Santino Funk MD Primary Care Provider + Reason for Visit * Reason Comments Edema Encounter Details Date Type Department Care Team (Latest Contact Info) Description 12/26/2021 9:45 AM CDT Office Visit [facility] [address] [address] [place] [address] [facility] [address] [place] [address] Primary osteoarthritis of both knees [...] on file Legal Sex Male 3:25 PM WOODWORKING MACHINE OFFBEARER Gender Identity Not on file Sexual Orientation [...] (Latest Contact Info) Description 10/23/2024 10:00 AM [facility] Hospital Encounter [facility] Operating Room [address] [place] [address] [place] [address] [address] [address] 10/23/2024 10:00 AM WOODWORKING MACHINE OFFBEARER - 10/23/2024 1:00 PM [facility] Surgery [facility] Operating Room [address] [place] [address] [place] [address] [address] [address] ARTHROPLASTY TOTAL KNEE LEFT Scheduled Procedures Name Priority Associated Diagnoses Date/Ti me ARTHROPLASTY TOTAL KNEE left knee osteoarthritis 10/23/2024 10:00 AM WOODWORKING MACHINE OFFBEARER ESOPHAGOGASTRODUODENOSCOPY Dysphagia, unspecified type documented as of this encounter Visit Diagnoses Diagnosis Primary osteoarthritis of both knees- Primary Hx of total knee replacement, right documented in this encounter Historical Medications * This list may reflect changes made after this encounter. mirtazapine (REMERON) 7.5 mg tablet TAKE 1 TABLET BY MOUTH ONCE DAILY AT NIGHT 12/19/2021 01/07/2024 added in this encounter Care Teams Hybrid Powertrain Development Engineer Relationship Specialty [place] [address] [address] PCP - General 11/12/16 03/11/22 documented as of this encounter
--- OUTSIDE RECORDS SUMMARY | 2024-10-11 03:04 | XMS_ITS | Encounter Summary ---
Author Organization [facility] Medical Group Address [address] [place] [address] Care Team Providers Care Electronic Bench Technician Name Role Phone Santino Funk MD Primary Care Provider + Reason for Visit * Reason Comments Alzheimer's Disease Encounter Details Date Type Department Care Team (Late st Contact Info) Description 03/11/2022 9:15 AM CDT Office Visit [facility] [address] [facility] [address], [place] [address] [place] [address] [facility] [address], [place] [address] Alzheimer's disease (HCC) (Primary Dx); [...] relatives? Three times a week 11/25/2021 Attends [employer] Services Not on file 11/25 Active Member [...] on file Legal Sex Male 3:25 PM TREKKING GUIDE Gender Identity Not on file Sexual Orientation [...] is planning to return to work at [employer]. Tremors have not progressed and do not [...] and symmetric in all four extremities. Coordination Efezqv-dj-jviv, rapid alternating movements and vpxy-lx-pgdb normal bilaterally without dysmetria. Gait Casual gait [...] 02/01/2018 ??? Edema 04/04/2020 ??? Intermittent claudication (CMS/[facility]) ([facility]) 04/04/2020 ??? Iron deficiency anemia 04/04/2020 ??? Peripheral vascular disease (CMS/[facility]) ([facility]) 04/04/2020 Resolved Ambulatory Problems Diagnosis Date Noted ??? No Resolved Ambulatory Problems Past Medical History: Diagnosis Date ??? Acute gastric ulcer without hemorrhage or perforation ??? Alzheimer's dementia ([facility]) ??? Asthma ??? Cataract ??? Diverticulitis of colon ??? Gastroesophageal reflux disease ??? Hypothyroidism ??? Incontinence of urine ??? Osteoarthritis ??? Peptic ulcer ??? Seizures (CMS/HCC) (FORMERLY [facility]) 1997 ??? SOB (shortness of breath) on [...] Family: Three times a week ??? Attends [employer]ism Services: Not on file ??? Active Member [...] (Latest Contact Info) Description 10/23/2024 10:00 AM TREKKING GUIDE Hospital Encounter [facility] Operating Room [address] [place] [address] [place] [address] [address] 10/23/2024 10:00 AM TREKKING GUIDE - 10/23/2024 1:00 PM TREKKING GUIDE Surgery [facility] Operating Room [address] [place] [address] [place] [address] [address] ARTHROPLASTY TOTAL KNEE LEFT Scheduled Procedures Name Priority Associated Diagnoses Date/Ti me ARTHROPLASTY TOTAL KNEE left knee osteoarthritis 10/23/2024 10:00 AM TREKKING GUIDE ESOPHAGOGASTRODUODENOSCOPY Dysphagia, unspecified type documented as of [...] documented as of this encounter Care Teams Electronic Bench Technician Relationship Specialty [place] [address] [address] PCP - General 11/12/16 03/11/22 documented as of this encounter
--- OUTSIDE RECORDS SUMMARY | 2024-10-11 03:04 | XMS_ITS | Encounter Summary ---
Author Organization [facility] Healthcare Address [address] [place] [address] Care Team Providers Care Orthodontist Assistant Name Role Phone Santino Funk MD Primary Care Provider + Encounter Details Date Type Department Care Team (Late st Contact Info) Description 12/17/2021 2:50 PM GAS SCRUBBER OPERATOR Lab [address] [address] Social History Tobacco Use Types [...] file Legal Sex Male 3:25 PM GAS SCRUBBER OPERATOR Gender Identity Not on file Sexual Orientation Not on file documented as of this encounter Plan of Treatment Upcoming Encounters Date Type Department Care Team (Latest Contact Info) Description 10/23/2024 10:00 AM GAS SCRUBBER OPERATOR Hospital Encounter [facility] Operating Room [address] [place] [address] [place] [address] [id number] 10/23/2024 10:00 AM GAS SCRUBBER OPERATOR - 10/23/2024 1:00 PM GAS SCRUBBER OPERATOR Surgery [facility] Operating Room [address] [place] [id number] [place] [address] [place] [address] ARTHROPLASTY TOTAL KNEE LEFT Scheduled Procedures Name Priority Associated Diagnoses Date/Ti me ARTHROPLASTY TOTAL KNEE left knee osteoarthritis 10/23/2024 10:00 AM GAS SCRUBBER OPERATOR ESOPHAGOGASTRODUODENOSCOPY Dysphagia, unspecified type documented as of this encounter Procedures Procedure Name Priority Date/Time Associated Diagnosis Comments DIFFERENTIAL AUTO Routine 12/17/2021 2:4 8 PM GAS SCRUBBER OPERATOR IRON PROFILE W/ IBC Routine 12/17/2021 2 :48 PM GAS SCRUBBER OPERATOR URINALYSIS AND REFLEX TO MICROSCOPIC Routine 12/17/2021 2:48 PM GAS SCRUBBER OPERATOR CBC WITH AUTO DIFFERENTIAL Routine 12/17/2021 2:48 PM GAS SCRUBBER OPERATOR VITAMIN D 25 HYDROXY Routine 12/17/2021 2:48 PM GAS SCRUBBER OPERATOR TSH Routine 12/17/2021 2:48 PM GAS SCRUBBER OPERATOR T4, FREE Routine 12/17/2021 2:48 PM GAS SCRUBBER OPERATOR FERRITIN Routine 12/17/2021 2:48 PM GAS SCRUBBER OPERATOR COMPREHENSIVE METABOLIC PANEL Routine 12/17/2021 2:48 PM GAS SCRUBBER OPERATOR documented in this encounter Results * Differential, auto (12/17/2021 2:48 PM GAS SCRUBBER OPERATOR) Neutrophil abs 4.9 1.7 - 6.5 K/cumm [...] revised on 2018. Blood 12/17/2021 2:48 PM GAS SCRUBBER OPERATOR 12/17/2021 4:46 PM GAS SCRUBBER OPERATOR Santino Funk MD LAB BLOOD ORDERABLES Fin al Result MARVIN [address] [address] Department [place] [address] * Vitamin D 25 hydroxy (12/17/2021 2:48 PM GAS SCRUBBER OPERATOR) Vitamin D 25-OH 68 30 - 80 ng/mL MARVIN FISHER Blood 12/17/2021 2:48 PM GAS SCRUBBER OPERATOR 12/17/2021 4:46 PM GAS SCRUBBER OPERATOR Santino Funk MD LAB BLOOD ORDERABLES Fin al Result Performing Organization Address [facility] de Phone Number CERDEE [address] [address] [place] [address] * (ABNORMAL) Urinalysis reflex to microscopic (12/17/2021 2:48 PM GAS SCRUBBER OPERATOR) Color, ur Thea Yellow CERNER [facility] Clarity, [...] met. [facility]ER [facility] Urine 12/17/2021 2:48 PM GAS SCRUBBER OPERATOR 12/17/2021 4:46 PM GAS SCRUBBER OPERATOR Narrative [facility] - 12/17/2021 5:21 PM GAS SCRUBBER OPERATOR ?? Urine pH is affected by diet, medications, systemic acid-base disturbances, and renal tubular function. ??pH may affect urinary stone formation. ??For example, urine pH below 6.0 may help reduce the tendency for calcium phosphate stones and pH greater than 6.0 may reduce the tendency for uric acid stone formation. Source: [facility] [employer]. Last revised 10-21-2017 Santino Funk MD LAB URINE ORDERABLES Fin al Result Performing Organization Address [facility] Co de Phone Number MARVIN FISHER [address] [address] [place] [place] [address] * TSH (12/17/2021 2:48 PM GAS SCRUBBER OPERATOR) Thyroid Stimulating Hormone 1.84 0.30 - 4.20 mcIUnit/mL [facility] Blood 12/17/2021 2:48 PM GAS SCRUBBER OPERATOR 12/17/2021 4:46 PM GAS SCRUBBER OPERATOR Santino Funk MD LAB BLOOD ORDERABLES Fin al Result Performing Organization Address City/[facility] Co de Phone Number MARVIN FISHER [address] [address] [facility] [place] [address] * (ABNORMAL) T4, free (12/17/2021 2:48 PM GAS SCRUBBER OPERATOR) Free T4 1.87(H) 0.90 - 1.70 ng/dL [facility] Blood 12/17/2021 2:48 PM GAS SCRUBBER OPERATOR 12/17/2021 4:46 PM GAS SCRUBBER OPERATOR Santino Funk MD LAB BLOOD ORDERABLES Fin al Result Performing Organization Address [facility] de Phone Number MARVIN FISHER [address] [place] [address] * (ABNORMAL) Iron profile w/ IBC (12/17/2021 2:48 PM GAS SCRUBBER OPERATOR) Iron 72 50 - 150 mcg/dl [facility] TIBC 205(L) 250 - 400 mcg/dL [facility] Transferrin saturation 35 20 - 50 % [facility] Blood 12/17/2021 2:48 PM GAS SCRUBBER OPERATOR 12/17/2021 4:46 PM GAS SCRUBBER OPERATOR Santino Funk MD LAB BLOOD ORDERABLES Fin al Result Performing Organization Address [facility] Co de Phone Number MARVIN FISHER [address] [place] [address] * (ABNORMAL) Ferritin (12/17/2021 2:48 PM GAS SCRUBBER OPERATOR) Ferritin 491(H) 30 - 400 ng/mL [facility] Blood 12/17/2021 2:48 PM GAS SCRUBBER OPERATOR 12/17/2021 4:46 PM GAS SCRUBBER OPERATOR Santino Funk MD LAB BLOOD ORDERABLES Fin al Result Performing Organization Address City/[facility] Co de Phone Number MARVIN FISHER [address] Department [place] [address] * (ABNORMAL) CBC with auto differential (12/17/2021 2:48 PM GAS SCRUBBER OPERATOR) Pathologist [facility] WBC 8.2 3.8 - 9.9 K/cumm CERNER [...] K/cumm [facility] Blood 12/17/2021 2:48 PM GAS SCRUBBER OPERATOR 12/17/2021 4:46 PM GAS SCRUBBER OPERATOR us Santino Funk MD LAB BLOOD ORDERABLES Fin al Result MARVIN FISHER [address] [address] Department [place] [address] * (ABNORMAL) Comprehensive metabolic panel (12/17/2021 2:48 PM GAS SCRUBBER OPERATOR) [facility] Sodium 139 135 - 145 mmol/L [...] Units/L [facility] Blood 12/17/2021 2:48 PM GAS SCRUBBER OPERATOR 12/17/2021 4:46 PM GAS SCRUBBER OPERATOR us Santino Funk MD LAB BLOOD ORDERABLES Fin al Result Performing Organization Address City/State/[facility] Co de Phone Number MARVIN FISHER [address] [address] Department [place] [address] documented in this encounter Visit Diagnoses Not on filedocumented in this encounter Care Teams Orthodontist Assistant Relationship Specialty [place] [address] [address] [facility] [place] [address] PCP - General 11/12/16 03/11/22 documented as of this encounter
--- OUTSIDE RECORDS SUMMARY | 2024-10-11 03:04 | XMS_ITS | Encounter Summary ---
Author Organization [facility] Medical Group Address [address] [place] [address] Care Team Providers Care Musical String Maker Name Role Phone Santino Funk MD Primary Care Provider + Encounter Details Date Type Department Care Team (Late st Contact Info) Description 11/28/2021 Telephone [facility] [address] [address] [place] [address] [facility] [address] [place] [address] Social History Tobacco Use Types [...] on file Legal Sex Male 3:25 PM MIXING ENGINEER Gender Identity Not on file Sexual [...] the ED for evaluation for DVT. Thanks. NG ENGINEER NG ENGINEER * Telephone Encounter - Joana Suresh - 11/28/2021 2:36 PM CST Patient requesting medication for swollen bilat knee [facility] [place] NG ENGINEER documented in this encounter Plan of Treatment Upcoming Encounters Date Type Department Care Team (Latest Contact Info) Description 10/23/2024 10:00 AM MIXING ENGINEER Hospital Encounter [facility] Operating Room [address] [place] [address] [place] [address] [address] 10/23/2024 10:00 AM MIXING ENGINEER - 10/23/2024 1:00 PM MIXING ENGINEER Surgery [facility] Operating Room [address] [place] [address] [place] [address] [address] ARTHROPLASTY TOTAL KNEE LEFT Scheduled Procedures Name Priority Associated Diagnoses Date/Ti me ARTHROPLASTY TOTAL KNEE left knee osteoarthritis 10/23/2024 10:00 AM MIXING ENGINEER ESOPHAGOGASTRODUODENOSCOPY Dysphagia, unspecified type documented as of this encounter Visit Diagnoses Not on filedocumented in this encounter Care Teams Musical String Maker Relationship Specialty [place] [address] [facility] [address] [place] [address] PCP - General 11/12/16 03/11/22 documented as of this encounter
--- OUTSIDE RECORDS SUMMARY | 2024-10-11 03:04 | XMS_ITS | Encounter Summary ---
Author Organization [facility] Address [address] [place] [address] Phone Care Team Providers Care Supervisor Fish Processing Name Role Phone No, Physician Primary Care Provider [phone] Unknown, Notinfile Unavailable Unavailable Santino Funk MD Unavailable [phone] Reason for Visit * Reason Comments Chronic Venous Insufficiency * Consultation (Routine) - Closed Specialty Diagnoses / Procedures Referred By Dillan mccallum Referred To Contact Vascular Surgery Diagnoses Edema of both lower extremities due to peripheral [place] [address] [place] [address] Phone: tel: [place]: [place] [address] [facility] [address], [place] [address] Phone: tel: fax: Referral ID Status Reason Start Date Expiration Date V isits Requested Visits Authorized [id number] Closed Specialty Services Required 05/19/2022 06/18/2023 1 1 Encounter Details Date Type Department Care Team (Latest Contact Info) Description 06/29/2022 8:30 AM CDT Office Visit [facility] Surgery [address] [facility] Medical Office Building [address], [place] [id number] [place] [address] [place] [address] Varicose veins of both legs with edema [...] on file Legal Sex Male 3:25 PM ARCHITECTURAL RENDERER Gender Identity Not on file Sexual Orientation [...] left knee done. He has been wearing ljps-ujq-earnlzo compression stockings since then with some relief. No previous history of DVT or phlebitis. No history of bleeding varicose veins or ulcers. Past Medical History: Diagnosis Date Acute gastric ulcer without hemorrhage or perforation Ulcer, gastric, acute - (Added by TW Conv) Alzheimer's dementia ([facility]) Asthma Back pain Cataract Closed fracture of left tibial plateau with delayed healing Closed fracture of right tibial plateau with delayed healing Closed nondisplaced osteochondral fracture of left patella with delayed healing Closed osteochondral fracture of patella, right, with delayed healing, subsequent encounter Clotting disorder ([facility]) ([facility]) Complex tear of medial meniscus of left knee as current injury Complex tear of medial meniscus of right knee as current injury Cramps of lower extremity Diverticulitis of colon Easy bruisability Fatigue Frequent urination Gastroesophageal reflux disease GERD Hypothyroidism Incontinence of urine Muscle weakness Osteoarthritis Osteoarthritis Peptic ulcer Peptic ulcer disease Seizures ([facility]) ([facility]) 1997 last seizure in 1997 SOB (shortness of breath) on exertion Subchondral insufficiency fracture of condyle of left femur ([facility]) ([facility]) [...] of condyle of left femur (CMS/HCC) ([facility]) Closed fracture of left tibial [...] lesion of breast Edema Intermittent claudication (CMS/HCC) ([facility]) Iron deficiency anemia Peripheral vascular disease (CMS/HCC) ([facility]) Pain due to total right knee replacement (CMS/HCC) ([facility]) Hamstring tendinitis of right thigh [...] (Latest Contact Info) Description 10/23/2024 10:00 AM ARCHITECTURAL RENDERER Hospital Encounter [facility] Operating Room [address] [place] [address] [place] [address] [address] 10/23/2024 10:00 AM ARCHITECTURAL RENDERER - 10/23/2024 1:00 PM ARCHITECTURAL RENDERER Surgery [facility] Operating Room [address] [place] [address] [place] [address] [address] ARTHROPLASTY TOTAL KNEE LEFT Scheduled Procedures Name Priority Associated Diagnoses Date/Ti me ARTHROPLASTY TOTAL KNEE left knee osteoarthritis 10/23/2024 10:00 AM ARCHITECTURAL RENDERER ESOPHAGOGASTRODUODENOSCOPY Dysphagia, unspecified type documented as of [...] 06/29/20 documented in this encounter Care Teams Supervisor Fish Processing Relationship Specialty Start Date End Date No, Physician PCP - General 8/4/22 12/20/22 Unknown, Notinfile 03/12/22 [place] [address] [place] [address] 03/12/22 documented as of this encounter
--- OUTSIDE RECORDS SUMMARY | 2024-10-11 03:04 | XMS_ITS | Encounter Summary ---
Author Organization [facility] Medical [facility] Address [address] [facility] [facility] [address] [place] [address] Care Team Providers Care Raw Juice Weigher Name Role Phone No, Physician Primary Care Provider [phone] Unknown, Notinfile Unavailable Unavailable Santino Funk MD Unavailable [phone] Reason for Referral * Procedure (Routine) - Closed Specialty Diagnoses / Procedures Referred By Contac t Referred To Contact Diagnoses Primary osteoarthritis of both knees Procedures Large Joint (Hip, Knee, Shoulder) Injection: [place] [address] [place] [address] Phone: tel: fax: [facility] Referral ID Status Reason Start Date Expiration Date Visits Re quested Visits Authorized [id number] Closed 05/19/2022 06/18/2023 1 1 * Consultation (Routine) - Closed Specialty Diagnoses / Procedures Referred By Contac t Referred To Contact Vascular Surgery Diagnoses Edema of both lower extremities due to peripheral [place] [address] [address] [facility] [address] [place] [address] Phone: tel: [place] [address] [address] [place] [address] Phone: tel: fax: Referral ID Status Reason Start Date Expiration Date V isits Requested Visits Authorized [id number] Closed Specialty Services Required 05/19/2022 06/18/2023 1 1 Question Answer Please select the performing region: [facility] (All Locations) [[id number]] To provider: MYRON MONGE [[id number]] # of visits: 1 Comments Bilateral peripheral edema Reason for Visit * Reason Comments Injections Encounter Details Date Type Department Care Team (Latest Contact Info) Description 05/19/2022 8:45 AM CDT [facility] [address] [phone] [place] [address] [address] Pain due to total right knee replacement, initial encounter ([facility]) (Primary Dx); Primary osteoarthritis [...] on file Legal Sex Male 3:25 PM PIT SHOVEL OPERATOR Gender Identity Not on file [...] feet somewhat. He is anticipating getting some xrgv-olz-ktwmgul arch supports because he stands and walks all day on concrete surfaces at [employer] where he works. He would like some [...] to total right knee replacement, initial encounter ([facility]) Primary osteoarthritis of both [...] (Latest Contact Info) Description 10/23/2024 10:00 AM PIT SHOVEL OPERATOR Hospital Encounter [facility] Operating Room [address] [place] [address] [place] [id number] [place] [address] 10/23/2024 10:00 AM PIT SHOVEL OPERATOR - 10/23/2024 1:00 PM PIT SHOVEL OPERATOR Surgery [facility] Operating Room [address] [place] [address] [place] [address] [address] ARTHROPLASTY TOTAL KNEE LEFT Scheduled Procedures Name Priority Associated Diagnoses Date/Ti me ARTHROPLASTY TOTAL KNEE left knee osteoarthritis 10/23/2024 10:00 AM PIT SHOVEL OPERATOR ESOPHAGOGASTRODUODENOSCOPY Dysphagia, unspecified type Scheduled Referrals Name Type Priority Associated Diagnoses Orde r Schedule Ambulatory referral to Vascular Surgery Outpatient Referral Routine Edema of both lower extremities due to peripheral venous insufficiency Expected: 06/02/2022 (Approximate), Expires: 05/19/2023 documented as of this encounter Procedures Procedure Name Priority Date/Time Associated Diagnosis Comments AK ARTHROCENTESIS ASPIR&/INJ MAJOR JT/BURSA W/O US Routine 05/19/2022 8:45 AM CDT Primary osteoarthritis of both knees documented in this encounter Results * AK ARTHROCENTESIS ASPIR&/INJ MAJOR JT/BURSA W/O US (05/19/2022 [...] documented as of this encounter Care Teams Raw Juice Weigher Relationship Specialty Start Date End Date No, Physician PCP - General 05/14/22 09/29/22 Unknown, Notinfile 03/12/22 [place] [address] [address] 03/12/22 documented as of this encounter
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
--- OUTSIDE RECORDS SUMMARY | 2024-10-11 03:04 | XMS_ITS | Encounter Summary ---
Author Organization [facility] Healthcare Address [address] [place] [address] Care Team Providers Care Insurance Writer Name Role Phone Santino Funk MD Primary Care Provider + Unknown, Notinfile Unavailable Unavailable Santino Funk MD Unavailable [phone] Encounter Details Date Type Department Care Team (Late st Contact Info) Description 10/26/2022 9:00 AM ORNAMENTAL IRON WORKER Lab [address] [address] Abnormality of gait and mobility; [...] in a assisted (including now)? No 11/25/2021 Sex and Gender Information Value Date Recorded Sex Assigned at Not on file Legal Sex Male 3:25 PM ORNAMENTAL IRON WORKER Gender Identity Not on file Sexual Orientation Not on file documented as of this encounter Plan of Treatment Upcoming Encounters Date Type Department Care Team (Latest Contact Info) Description 10/23/2024 10:00 AM ORNAMENTAL IRON WORKER Hospital Encounter [facility] Operating Room [address] [place] [address] [place] [address] [facility] [address] [place], [place] [id number] 10/23/2024 10:00 AM ORNAMENTAL IRON WORKER - 10/23/2024 1:00 PM ORNAMENTAL IRON WORKER Surgery [facility] Operating Room [address] [place] [address] [place] [address] [facility] [address] [place], [place] [id number] ARTHROPLASTY TOTAL KNEE LEFT Scheduled Procedures Name Priority Associated Diagnoses Date/Ti me ARTHROPLASTY TOTAL KNEE left knee osteoarthritis 10/23/2024 10:00 AM ORNAMENTAL IRON WORKER ESOPHAGOGASTRODUODENOSCOPY Dysphagia, unspecified type documented as of this encounter Procedures Procedure Name Priority Date/Time Associated Diagnosis Comments KARLA REFLEX TO QUANTITATIVE AND DSDNA Routine 10/26/2022 10:45 AM ORNAMENTAL IRON WORKER Abnormality of gait and mobility Idiopathic peripheral neuropathy CLINICAL PATHOLOGY REPORT Routine 10/26/2022 10:45 AM ORNAMENTAL IRON WORKER METHYLMALONIC ACID, SERUM Routine 10/26/2022 10:45 AM ORNAMENTAL IRON WORKER Abnormality of gait and mobility Idiopathic peripheral neuropathy PROTEIN ELECTROPHORESIS, WITH REFLEX, SERUM Routine 10/26/2022 10:45 AM ORNAMENTAL IRON WORKER Abnormality of gait and mobility Idiopathic peripheral neuropathy ZINC Routine 10/26/2022 10:35 AM ORNAMENTAL IRON WORKER Abnormality of gait and mobility Idiopathic peripheral neuropathy ERYTHROCYTE SEDIMENTATION RATE Routine 10/26/2022 10:35 AM ORNAMENTAL IRON WORKER Abnormality of gait and mobility Idiopathic peripheral neuropathy VITAMIN E Routine 10/26/2022 10:10 AM ORNAMENTAL IRON WORKER Abnormality of gait and mobility Idiopathic peripheral neuropathy FOLATE Routine 10/26/2022 10:10 AM ORNAMENTAL IRON WORKER Abnormality of gait and mobility Idiopathic peripheral neuropathy VITAMIN B12 Routine 10/26/2022 10:10 AM ORNAMENTAL IRON WORKER Abnormality of gait and mobility Idiopathic peripheral neuropathy documented in this encounter Results * Clinical pathology report (10/26/2022 10:45 AM ORNAMENTAL IRON WORKER) Miscellaneous 10/26/2022 10: 45 AM ORNAMENTAL IRON WORKER 10/27/2022 8:12 AM ORNAMENTAL IRON WORKER Narrative 10/28/2022 1:18 PM ORNAMENTAL IRON WORKER [facility] results best viewed via link to PDF [facility] Department of Pathology [address] [place] [address] Final Report Note to Patients: This [...] Patient Name: ? GUNJAN GTZ JR Address: ??[address] [place] [id number] Gender: ??M : ??1945 (Age: 77) Service: ?? Location: ?? Hospital #: ??[id number] Patient Type: ??[facility] Taken: ??10/26/2022 Received: ?? 10/27/2022 Accessioned: ??10/27/2022 Physician(s): ??Nayan Mahajan M.D. Specimen(s) Received A: Blood (serum) Serum Protein ElectrophoresisReported:10/28/2022 Interpretation: Serum Protein Electrophoresis: Normal serum protein electrophoresis pattern. Comment: Serum Protein Electrophoresis: There are no significant abnormalities of the protein fractions. See [facility] and/or separate report for protein fraction table. Abel Ambriz MD PhDReport Electronically Reviewed and Signed Out By ??Abel Ambriz MD PhD ??10/28/2022 13:18:41 The performance characteristics of some immunohistochemical stains, fluorescence in-situ hybridization tests and immunophenotyping by flow cytometry cited in this report (if any) were determined by the Surgical Pathology Department at [facility] as part of an ongoing air quality technician program and in compliance with federally mandated [...] characteristics determined by the Surgical Pathology Department [facility]. ??It has not been cleared or approved by the U. S. Food and Drug Administration. REPORT IMAGES AND SCANNED DOCUMENTS, IF INCLUDED, ONLY VIEWABLE IN PDF VERSION OF REPORTe o Nayan Mahajan II, MD LAB PATHOLOGY ORDERABLES Fin al Result * Protein electrophoresis with reflex, serum (10/26/2022 10:45 AM ORNAMENTAL IRON WORKER) Protein, sr 6.3 6.2 - 8.2 g/dL [...] [facility] Blood 10/26/2022 10:4 5 AM ORNAMENTAL IRON WORKER 10/26/2022 10:45 AM ORNAMENTAL IRON WORKER Nayan Mahajan II, MD LAB BLOOD ORDERABLES Final R esult ANYDEE FISHER [address] [address] Department [place] [address] * Methylmalonic acid, serum (10/26/2022 10:45 AM ORNAMENTAL IRON WORKER) MMA 0.14 <=0.40 nmol/mL [facility] Comment: ADDITIONAL INFORMATION This test was developed and its performance characteristics determined by [facility] in a manner consistent with CLIA requirements. This test has not been cleared or approved by the U.S. Food and Drug Administration. Test Performed by: [facility] - [address] [address] Fire Management Officer: Byron Nance M.D. Ph.D.; CLIA# [id number] Blood 10/26/2022 10:4 5 AM ORNAMENTAL IRON WORKER 10/26/2022 10:45 AM ORNAMENTAL IRON WORKER Nayan Mahajan II, MD LAB BLOOD ORDERABLES Final R esult Performing Organization Address [facility] Co de Phone Number MARVIN FISHER [address] Department [place] [address] * KARLA Reflex to Quantitative and dsDNA (10/26/2022 10:45 AM ORNAMENTAL IRON WORKER) KARLA Negative Negative MARVIN FISHER Comment: Interpretive [...] on 20. Blood 10/26/2022 10:4 5 AM ORNAMENTAL IRON WORKER 10/26/2022 10:45 AM ORNAMENTAL IRON WORKER Nayan Mahajan II, MD LAB BLOOD ORDERABLES Final R esult MARVIN FISHER [address] [address] Department [place] [address] * Erythrocyte sedimentation rate (10/26/2022 10:35 AM ORNAMENTAL IRON WORKER) Erythrocyte sedimentation rate 5 1 - 20 mm/hr [facility] Blood 10/26/2022 10:3 5 AM ORNAMENTAL IRON WORKER 10/26/2022 10:35 AM ORNAMENTAL IRON WORKER Nayan Mahajan II, MD LAB BLOOD ORDERABLES Final R esult Performing Organization Address [facility] de Phone Number [facility] [address] [place] [address] * Zinc (10/26/2022 10:35 AM ORNAMENTAL IRON WORKER) Pathologist [facility] Zinc 74 60 - 106 mcg/dL [facility] Comment: ADDITIONAL INFORMATION This test was developed and its performance characteristics determined by [facility] in a manner consistent with CLIA requirements. This test has not been cleared or approved by the U.S. Food and Drug Administration. Test Performed by: [facility] [place] [address] Fire Management Officer: Byron Nance M.D. Ph.D.; CLIA# [id number] Blood 10/26/2022 10:3 5 AM ORNAMENTAL IRON WORKER 10/26/2022 10:35 AM ORNAMENTAL IRON WORKER Nayan Mahajan II, MD LAB BLOOD ORDERABLES Final R esult Performing Organization Address [facility] Co de Phone Number [facility] [address] [address] [facility] [place] [address] * Vitamin B12 (10/26/2022 10:10 AM ORNAMENTAL IRON WORKER) Pathologist [facility] Vitamin B12 791 230 - 1,250 pg/mL [facility] Blood 10/26/2022 10:1 0 AM ORNAMENTAL IRON WORKER 10/26/2022 10:31 AM ORNAMENTAL IRON WORKER Nayan Mahajan II, MD LAB BLOOD ORDERABLES Final R esult Performing Organization Address [facility] de Phone Number MARVIN FISHER [address] [place] [address] * Folate (10/26/2022 10:10 AM ORNAMENTAL IRON WORKER) Folic acid 5.4 >=5.0 ng/mL [facility] Comment:Hemolysis present. R esults may be affected. Blood 10/26/2022 10:1 0 AM ORNAMENTAL IRON WORKER 10/26/2022 10:31 AM ORNAMENTAL IRON WORKER Nayan Mahajan II, MD LAB BLOOD ORDERABLES Final R esult Performing Organization Address [facility] de Phone Number MARVIN FISHER [address] [address] [facility] [place] [address] * Vitamin E (10/26/2022 10:10 AM ORNAMENTAL IRON WORKER) Tocopherol (Vit E) 10.8 5.5 - 17.0 mg/L [facility] Comment: ADDITIONAL INFORMATION This test was developed and its performance characteristics determined by [facility] in a manner consistent with CLIA requirements. This test has not been cleared or approved by the U.S. Food and Drug Administration. Test Performed by: [facility] [place] [address] Fire Management Officer: Byron Nance M.D. Ph.D.; CLIA# [id number] Blood 10/26/2022 10:1 0 AM ORNAMENTAL IRON WORKER 10/26/2022 3:14 PM ORNAMENTAL IRON WORKER Nayan Mahajan II, MD LAB BLOOD ORDERABLES Final R esult Performing Organization Address [facility] de Phone Number MARVIN FISHER [address] [address] [facility] [place] [address] documented in this encounter Visit Diagnoses Diagnosis Abnormality of gait and mobility Idiopathic peripheral neuropathy Unspecified hereditary and idiopathic peripheral neuropathy documented in this encounter Care Teams Insurance Writer Relationship Specialty [place] [address] [facility] [place] [address] PCP - General Internal Medicine 09/30/22 05/04/23 Unknown, Notinfile 03/12/22 [place] [address] [address] [facility] [place] [address] 03/12/22 documented as of this encounter
--- OUTSIDE RECORDS SUMMARY | 2024-10-11 03:04 | XMS_ITS | Encounter Summary ---
Author Organization [facility] Medical Group Address [address] [facility] [address] [place] [address] Care Team Providers Care Tobacco Stemmer Name Role Phone Santino Funk MD Primary Care Provider + Unknown, Notinfile Primary Care Provider Unavail able Unknown, Notinfile Unavailable Unavailable Santino Funk MD Unavailable [phone] Encounter Details Date Type Department Care Team (Late st Contact Info) Description 03/11/2022 Telephone [facility] [address] [address] [place] [address] [facility] [address] [place] [address] Social History Tobacco Use Types [...] file Legal Sex Male 3:25 PM CLINICAL NURSING MANAGER Gender Identity Not on file Sexual [...] can also be sent in for his [facility] paperwork. * Telephone Encounter - Joana Suresh - 03/11/2022 12:33 PM CDT Patient requesting new work note but patient requesting a return call to discuss limitations on work note. [phone] documented in this encounter Plan of Treatment Upcoming Encounters Date Type Department Care Team (Latest Contact Info) Description 10/23/2024 10:00 AM CLINICAL NURSING MANAGER Hospital Encounter [facility] Operating Room [address] [place] [address] [place] [address] [address] 10/23/2024 10:00 AM CLINICAL NURSING MANAGER - 10/23/2024 1:00 PM CLINICAL NURSING MANAGER Surgery [facility] Operating Room [address] [place] [address] [place] [address] [address] ARTHROPLASTY TOTAL KNEE LEFT Scheduled Procedures Name Priority Associated Diagnoses Date/Ti me ARTHROPLASTY TOTAL KNEE left knee osteoarthritis 10/23/2024 10:00 AM CLINICAL NURSING MANAGER ESOPHAGOGASTRODUODENOSCOPY Dysphagia, unspecified type documented as of this encounter Visit Diagnoses Not on filedocumented in this encounter Care Teams Tobacco Stemmer Relationship Specialty [place] [address] [facility] [address] [place] [address] PCP - General 11/12/16 03/11/22 Unknown, Notinfile PCP - General 03/12/22 05/13/22 Unknown, Notinfile 03/12/22 [place] [address] [address] 03/12/22 documented as of this encounter
--- OUTSIDE RECORDS SUMMARY | 2024-10-11 03:04 | XMS_ITS | Encounter Summary ---
Author Organization [facility] Address [address] [facility] [address] [place] [address] Care Team Providers Care Tricot Knitting Machine Operator Name Role Phone Santino Funk MD Primary Care Provider + Reason for Visit * Reason Onset Date Comments [place] 02/23/2022 Encounter Details Date Type Department Care Team (Late st Contact Info) Description 02/23/2022 Telephone [facility] [address] [facility] [address] [place] [address] [place] [address] [facility] [address] [place] [address] [place] Social History [...] relatives? Three times a week 11/25/2021 Attends Sikh Services Not on file 11/25 Active Member [...] in a snf (including now)? No 11/25/2021 Sex and Gender Information Value Date Recorded Sex Assigned at Not on file Legal Sex Male 3:25 PM ROUGH ROUNDER MACHINE Gender Identity Not on file Sexual [...] sign. Thank you * Telephone Encounter - Paty López - 02/23/2022 1:48 PM CDT Patient is requesting an [place] handic[place] plac[place]. documented in this encounter Plan of Treatment Upcoming Encounters Date Type Department Care Team (Latest Contact Info) Description 10/23/2024 10:00 AM ROUGH ROUNDER MACHINE Hospital Encounter [facility] Operating Room [address] [place] [address] [place] [address] [address] 10/23/2024 10:00 AM ROUGH ROUNDER MACHINE - 10/23/2024 1:00 PM ROUGH ROUNDER MACHINE Surgery [facility] Operating Room [address] [place] [address] [place] [address] [address] ARTHROPLASTY TOTAL KNEE LEFT Scheduled Procedures Name Priority Associated Diagnoses Date/Ti me ARTHROPLASTY TOTAL KNEE left knee osteoarthritis 10/23/2024 10:00 AM ROUGH ROUNDER MACHINE ESOPHAGOGASTRODUODENOSCOPY Dysphagia, unspecified type documented as of this encounter Visit Diagnoses Not on filedocumented in this encounter Care Teams Tricot Knitting Machine Operator Relationship Specialty [place] [address] [facility] [address] [place] [address] PCP - General 11/12/16 03/11/22 documented as of this encounter
--- OUTSIDE RECORDS SUMMARY | 2024-10-11 03:04 | XMS_ITS | Encounter Summary ---
Author Organization [facility] Address [address] [facility] [address] [place] [address] Care Team Providers Care Fountain Waitress/Waiter Name Role Phone Santino Funk MD Primary Care Provider + Reason for Visit * Reason Comments Post-op Encounter Details Date Type Department Care Team (Late st Contact Info) Description 12/09/2021 10:00 AM MANUAL LATHE MACHINIST Office Visit [facility] [address] [address] [place] [address] [address] Hx of total knee replacement, right (Primary Dx) Social History Tobacco Use Types Packs/Day Years Used Date Smoking Tobacco: Former Cigarettes 1 [phone] - [phone] Smokeless Tobacco: Never Alcohol Use Standard Drinks/Week [...] on file Legal Sex Male 3:25 PM MANUAL LATHE MACHINIST Gender Identity Not on file Sexual Orientation Not on file documented as of this encounter Last Filed Vital Signs Vital Sign Reading Time Taken Comments Blood Pressure - - Pulse - - Temperature - - Respiratory Rate - - Oxygen Saturation - - Inhaled Oxygen Concentration - - Weight - - Height 180.3 cm (5' 11 ) 12/09/2021 10:11 AM MANUAL LATHE MACHINIST Body Mass Index - - documented in [...] be taken at that time LORI Craig AL LATHE MACHINIST documented in this encounter Plan of Treatment Upcoming Encounters Date Type Department Care Team (Latest Contact Info) Description 10/23/2024 10:00 AM MANUAL LATHE MACHINIST Hospital Encounter [facility] Operating Room [address] [place] [address] [place] [address] [id number] 10/23/2024 10:00 AM MANUAL LATHE MACHINIST - 10/23/2024 1:00 PM MANUAL LATHE MACHINIST Surgery [facility] Operating Room [address] [place] [address] [place] [address] [phone] ARTHROPLASTY TOTAL KNEE LEFT Scheduled Procedures Name Priority Associated Diagnoses Date/Ti me ARTHROPLASTY TOTAL KNEE left knee osteoarthritis 10/23/2024 10:00 AM MANUAL LATHE MACHINIST ESOPHAGOGASTRODUODENOSCOPY Dysphagia, unspecified type documented as of this encounter Visit Diagnoses Diagnosis Hx of total knee replacement, right- Primary documented in this encounter Discontinued Medications Medication Sig Discontinue Reason Start Date End Da te oxyCODONE-acetaminophen (PERCOCET) 10-325 mg per tabletIndications:Pain Take 1 tablet by mouth every 4 (four) hours as needed for pain Reorder 11/26/2021 12/09/2021 documented as of this encounter Care Teams Fountain Waitress/Waiter Relationship Specialty [place] [address] [address] PCP - General 11/12/16 03/11/22 documented as of this encounter
--- OUTSIDE RECORDS SUMMARY | 2024-10-11 03:04 | XMS_ITS | Encounter Summary ---
Author Organization [facility] Medical [facility] Address [address] [facility] [address] [place] [address] Care Team Providers Care Corporate Technical Recruiter Name Role Phone Santino Funk MD Primary Care Provider + Unknown, Notinfile Unavailable Unavailable Santino Funk MD Unavailable [phone] Reason for Visit * Reason Comments Alzheimer's Disease Encounter Details Date Type Department Care Team (Latest Contact Info) Description 11/05/2022 10:00 AM STUDENT DEVELOPMENT DEAN Office Visit [facility] [address] [facility] [address], [place] [address] Nayan Mahajan II, [place] [id number] [place] [address] [address] [address] Polyneuropathy (Primary Dx); Neuropathic pain; [...] relatives? Three times a week 11/25/2021 Attends Mosque Services Not on file 11/25 Active Member [...] on file Legal Sex Male 3:25 PM STUDENT DEVELOPMENT DEAN Gender Identity Not on file Sexual Orientation Not on file documented as of this encounter Last Filed Vital Signs Vital Sign Reading Time Taken Comments Blood Pressure 130/70 11/05/2022 9:48 AM STUDENT DEVELOPMENT DEAN Pulse 53 11/05/2022 9:48 AM STUDENT DEVELOPMENT DEAN Temperature - - Respiratory Rate 17 11/05/2022 9:48 AM STUDENT DEVELOPMENT DEAN Oxygen Saturation 99% 11/05/2022 9:48 AM STUDENT DEVELOPMENT DEAN Inhaled Oxygen Concentration - - Weight 103.7 kg (228 lb 9.9 oz) 11/05/2022 9:48 AM STUDENT DEVELOPMENT DEAN Height 180.3 cm (5' 11 ) 11/05/2022 9:48 AM STUDENT DEVELOPMENT DEAN Body Mass Index 31.89 11/05/2022 9:48 AM STUDENT DEVELOPMENT DEAN documented in this encounter Ordered Prescriptions Prescription [...] in upper and lower extremities. Coordination Right: Mhjcsp-ep-tadd normal.Left: Citcog-yv-rwbw normal. Gait Slow antalgic. Physical Exam Vitals [...] of breast 02/01/2018 Edema 04/04/2020 Intermittent claudication ([facility]) ([facility]) 04/04/2020 Iron deficiency anemia 04/04/2020 Peripheral vascular disease ([facility]) ([facility]) 04/04/2020 Pain due to total right knee replacement ([facility]) ([facility]) 04/28/2022 Hamstring tendinitis of right thigh 04/28/2022 Quadriceps weakness 04/28/2022 Idiopathic peripheral neuropathy Abnormality of gait and mobility Resolved Ambulatory Problems Diagnosis Date Noted No Resolved Ambulatory Problems Past Medical History: Diagnosis Date Acute gastric ulcer without hemorrhage or perforation Alzheimer's dementia ([facility]) Asthma Back pain Cataract Clotting disorder ([facility]) ([facility]) Cramps of lower extremity Diverticulitis of colon Easy bruisability Fatigue Frequent urination Gastroesophageal reflux disease Hypothyroidism Incontinence of urine Muscle weakness Osteoarthritis Peptic ulcer Seizures ([facility]) ([facility]) 1997 SOB (shortness of breath) [...] or 4 Frequency of Binge Drinking: Never ENT DEVELOPMENT DEAN documented in this encounter Plan of Treatment Upcoming Encounters Date Type Department Care Team (Latest Contact Info) Description 10/23/2024 10:00 AM STUDENT DEVELOPMENT DEAN Hospital Encounter [facility] Operating Room [address] [place] [address] [place] [address] [address] 10/23/2024 10:00 AM STUDENT DEVELOPMENT DEAN - 10/23/2024 1:00 PM STUDENT DEVELOPMENT DEAN Surgery [facility] Operating Room [address] [place] [address] [place] [address] [facility] [address] [place] [address] ARTHROPLASTY TOTAL KNEE LEFT Scheduled Procedures Name Priority Associated Diagnoses Date/Ti me ARTHROPLASTY TOTAL KNEE left knee osteoarthritis 10/23/2024 10:00 AM STUDENT DEVELOPMENT DEAN ESOPHAGOGASTRODUODENOSCOPY Dysphagia, unspecified type documented as of this encounter Visit Diagnoses Diagnosis Polyneuropathy- Primary Unspecified hereditary and idiopathic peripheral neuropathy Neuropathic pain Pruritus Unspecified pruritic disorder Polyarthralgia Pain in joint, multiple sites documented in this encounter Care Teams Corporate Technical Recruiter Relationship Specialty [place] [address] [address] [place] [address] PCP - General Internal Medicine 09/30/22 05/04/23 Unknown, Notinfile 03/12/22 [place] [address] [address] [facility] [place] [address] 03/12/22 documented as of this encounter
--- OUTSIDE RECORDS SUMMARY | 2024-10-11 03:04 | XMS_ITS | Encounter Summary ---
Author Organization [facility] Address [address] [facility] [address] [place] [address] Care Team Providers Care Membership Administrator Name Role Phone Unknown, Notinfile Primary Care Provider Unavail able Unknown, Notinfile Unavailable Unavailable Santino Funk MD Unavailable [phone] Reason for Referral * Procedure (Routine) - Closed Specialty Diagnoses / Procedures Referred By Contac t Referred To Contact Diagnoses Primary osteoarthritis of both knees Pain due to total right knee replacement, initial encounter ([facility]) Procedures [place] [address] [address] Phone: tel: fax: [facility] Referral ID Status Reason Start Date Expiration Date Visits Re quested Visits Authorized [id number] Closed 04/28/2022 05/28/2023 1 1 Reason for Visit * Reason Comments Follow-up Follow-up Encounter Details Date Type Department Care Team (Latest Contact Info) Description 04/28/2022 3:15 PM CDT [facility] [address] [phone] [place] [address] [address] Primary osteoarthritis of both knees [...] on file Legal Sex Male 3:25 PM PLATEN PRESS OPERATOR Gender Identity Not on file [...] to work. He is currently working at [employer]. Pain Assessment Pain Assessment: 0-10 Pain Score: [...] of loosening or component failure. Left kneedemonstrates apdp-xc-zeec tricompartmental joint space narrowing with subchondral sclerosis [...] he has just started his job at [employer] and really likes it. We will contact the patient with the results of his Synovasure analysis and more treatment options will follow. I also prescribed Mobic in the office today for anti-inflammatory purposes. George Sepulveda MD documented in this encounter Plan of Treatment Upcoming Encounters Date Type Department Care Team (Latest Contact Info) Description 10/23/2024 10:00 AM PLATEN PRESS OPERATOR Hospital Encounter [facility] Operating Room [address] [place] [address] [place] [address] [address] 10/23/2024 10:00 AM PLATEN PRESS OPERATOR - 10/23/2024 1:00 PM PLATEN PRESS OPERATOR Surgery [facility] Operating Room [address] [place] [address] [place] [address] [address] ARTHROPLASTY TOTAL KNEE LEFT Scheduled Procedures Name Priority Associated Diagnoses Date/Ti me ARTHROPLASTY TOTAL KNEE left knee osteoarthritis 10/23/2024 10:00 AM PLATEN PRESS OPERATOR ESOPHAGOGASTRODUODENOSCOPY Dysphagia, unspecified type documented as of this encounter Procedures Procedure Name Priority Date/Time Associated Diagnosis Comments XR KNEE BILATERAL 3 VIEWS Schedule Routine, Read Routine (OP Routine) 04/28/2022 3:42 PM CDT Primary osteoarthritis of both knees [place] ARTHROCENTESIS ASPIR&/INJ MAJOR JT/BURSA W/O US Routine 04/28/2022 3:15 PM CDT Primary osteoarthritis of both knees Pain due to total right knee replacement, initial encounter ([facility]) documented in this encounter Results * XR Knee Bilateral 3 Views (04/28/2022 3:42 PM CDT) Anatomical Region Laterality Modality Lower Extremities, Knee Bilateral Computed Radiography Narrative 04/28/2022 3:51 PM CDT Radiographs of bilateral knees reviewed and interpreted. ??Right knee demonstrates stable total knee arthroplasty with hybrid fixation. ??There is no evidence of loosening or component failure. ??Left knee demonstrates mkxh-xq-eoix tricompartmental joint space narrowing with subchondral sclerosis and spur formation consistent with grade 4 osteoarthritis us George Sepulveda MD IMG XR PROCEDURES Final R esult * TN ARTHROCENTESIS ASPIR&/INJ MAJOR JT/BURSA W/O US (04/28/2022 [...] to total right knee replacement, initial encounter ([facility]) Hamstring tendinitis of right thigh Quadriceps weakness documented in this encounter Discontinued Medications Medication Sig Discontinue Reason Start Date End Da te aspirin 325 mg tablet Take 1 tablet (325 mg total) by mouth 2 (two) times a day Alternate therapy 11/26/2021 04/28/2022 documented as of this encounter Care Teams Membership Administrator Relationship Specialty Start Date End Date Unknown, Notinfile PCP - General 03/12/22 05/13/22 Unknown, Notinfile 03/12/22 [place] [address] [place] [address] 03/12/22 documented as of this encounter
--- OUTSIDE RECORDS SUMMARY | 2024-10-11 03:04 | XMS_ITS | Encounter Summary ---
Author Organization [facility] Address [address] [place] [address] Care Team Providers Care Prints And Drawings Curator Name Role Phone Santino Funk MD Primary Care Provider + Encounter Details Date Type Department Care Team (Late st Contact Info) Description 12/17/2021 5:35 PM FISH BUTCHER Lab [address] [phone] Social History Tobacco Use Types Packs/Day Years [...] relatives? Three times a week 11/25/2021 Attends Shinto Services Not on file 11/25 Active Member [...] on file Legal Sex Male 3:25 PM FISH BUTCHER Gender Identity Not on file Sexual Orientation Not on file documented as of this encounter Plan of Treatment Upcoming Encounters Date Type Department Care Team (Latest Contact Info) Description 10/23/2024 10:00 AM FISH BUTCHER Hospital Encounter [facility] Operating Room [address] [place] [address] [place] [address] [address] [address] 10/23/2024 10:00 AM FISH BUTCHER - 10/23/2024 1:00 PM FISH BUTCHER Surgery [facility] Operating Room [address] [place] [address] [place] [address] [address] [facility] [address] [place] [address] ARTHROPLASTY TOTAL KNEE LEFT Scheduled Procedures Name Priority Associated Diagnoses Date/Ti me ARTHROPLASTY TOTAL KNEE left knee osteoarthritis 10/23/2024 10:00 AM FISH BUTCHER ESOPHAGOGASTRODUODENOSCOPY Dysphagia, unspecified type documented as of this encounter Visit Diagnoses Not on filedocumented in this encounter Additional Health Concerns Infection Onset Date Last Indicated Resolved Time COVID: Suspected 12/17/2021 12/17/2021 12/17/2021 10:19 PM FISH BUTCHER documented as of this encounter Care Teams Prints And Drawings Curator Relationship Specialty Start [place] [address] [address] [facility] [address] [place] [address] PCP - General 11/12/16 03/11/22 documented as of this encounter
--- OUTSIDE RECORDS SUMMARY | 2024-10-11 03:04 | XMS_ITS | Encounter Summary ---
Author Organization [facility] Medical [facility] Address [address] [facility] [address] [place] [address] Care Team Providers Care Family Development Specialist Name Role Phone Unknown, Notinfile Primary Care Provider Unavail able Unknown, Notinfile Unavailable Unavailable Santino Funk MD Unavailable [phone] Reason for Visit * Reason Comments Follow-up Follow-up Encounter Details Date Type Department Care Team (Latest Contact Info) Description 03/17/2022 8:45 AM CDT Office Visit [facility] [address] [address] [place] [address] [address] Aftercare following right knee joint [...] relatives? Three times a week 11/25/2021 Attends Confucianist Services Not on file 11/25 Active Member [...] on file Legal Sex Male 3:25 PM TAKE UP SUPERVISOR Gender Identity Not on file Sexual [...] trying to get back to work at [employer]. However, the he would result his apartment [...] (Latest Contact Info) Description 10/23/2024 10:00 AM TAKE UP SUPERVISOR Hospital Encounter [facility] Operating Room [address] [place] [address] [place] [address] [address] 10/23/2024 10:00 AM TAKE UP SUPERVISOR - 10/23/2024 1:00 PM TAKE UP SUPERVISOR Surgery [facility] Operating Room [address] [place] [address] [place] [address] [address] ARTHROPLASTY TOTAL KNEE LEFT Scheduled Procedures Name Priority Associated Diagnoses Date/Ti me ARTHROPLASTY TOTAL KNEE left knee osteoarthritis 10/23/2024 10:00 AM TAKE UP SUPERVISOR ESOPHAGOGASTRODUODENOSCOPY Dysphagia, unspecified type documented as of this encounter Visit Diagnoses Diagnosis Aftercare following right knee joint replacement surgery- Primary Primary osteoarthritis of both knees documented in this encounter Care Teams Family Development Specialist Relationship Specialty Start Date End Date Unknown, Notinfile PCP - General 03/12/22 05/13/22 Unknown, Notinfile 03/12/22 [place] [address] [facility] [address] [address] 03/12/22 documented as of this encounter
--- OUTSIDE RECORDS SUMMARY | 2024-10-11 03:04 | XMS_ITS | Encounter Summary ---
Author Organization [facility] Medical Group Address [address] [facility] [address] [place] [address] Care Team Providers Care Automobile Engine Assembler Name Role Phone No, Physician Primary Care Provider [phone] Unknown, Notinfile Unavailable Unavailable Santino Funk MD Unavailable [phone] Reason for Referral * Procedure (Routine) - Closed Specialty Diagnoses / Procedures Referred By Contac t Referred To Contact Diagnoses Primary osteoarthritis of both knees Procedures Large Joint (Hip, Knee, Shoulder) Injection: [place] [address] [address] Phone: tel: fax: [facility] Referral ID Status Reason Start Date Expiration Date Visits Re quested Visits Authorized [id number] Closed 08/25/2022 09/24/2023 1 1 CE CAPTAIN PRECINCT Reason for Visit * Reason Comments Pain Last inj. 05/19/22 Injections Last inj. 05/19/22 Pain Encounter Details Date Type Department Care Team (Latest Contact Info) Description 08/25/2022 8:00 AM POLICE CAPTAIN PRECINCT Office Visit [facility] [address] [address] [place] [address] [address] Edema of both lower extremities [...] on file Legal Sex Male 3:25 PM POLICE CAPTAIN PRECINCT Gender Identity Not on file Sexual Orientation Not on file documented as of this encounter Last Filed Vital Signs Vital Sign Reading Time Taken Comments Blood Pressure - - Pulse - - Temperature - - Respiratory Rate - - Oxygen Saturation - - Inhaled Oxygen Concentration - - Weight 101.4 kg (223 lb 9.6 oz) 08/25/2022 7:59 AM POLICE CAPTAIN PRECINCT Height 180.3 cm (5' 10.98 ) 08/25/2022 7:[address] Body Mass Index 31.2 08/25/2022 7:59 AM POLICE CAPTAIN PRECINCT documented in this encounter Ordered Prescriptions Prescription [...] to cost. He is anticipating getting some sxcu-daa-iwestcz arch supports because he stands and walks all day on concrete surfaces at [employer] where he works. MEDICATIONS He has a [...] George Sepulveda MD at 08/25/2022 3:23 PM POLICE CAPTAIN PRECINCT CE CAPTAIN PRECINCT CE CAPTAIN PRECINCT documented in this encounter Plan of Treatment Upcoming Encounters Date Type Department Care Team (Latest Contact Info) Description 10/23/2024 10:00 AM POLICE CAPTAIN PRECINCT Hospital Encounter [facility] Operating Room [address] [place] [address] [place] [address] [facility] [address] [place] [address] 10/23/2024 10:00 AM POLICE CAPTAIN PRECINCT - 10/23/2024 1:00 PM POLICE CAPTAIN PRECINCT Surgery [facility] Operating Room [address] [place] [address] [place] [address] [facility] [address] [place] [address] ARTHROPLASTY TOTAL KNEE LEFT Scheduled Procedures Name Priority Associated Diagnoses Date/Ti me ARTHROPLASTY TOTAL KNEE left knee osteoarthritis 10/23/2024 10:00 AM POLICE CAPTAIN PRECINCT ESOPHAGOGASTRODUODENOSCOPY Dysphagia, unspecified type documented as of this encounter Procedures Procedure Name Priority Date/Time Associated Diagnosis Comments TN ARTHROCENTESIS ASPIR&/INJ MAJOR JT/BURSA W/O US Routine 08/25/2022 8:00 AM POLICE CAPTAIN PRECINCT Primary osteoarthritis of both knees documented in this encounter Results * [place] ARTHROCENTESIS ASPIR&/INJ MAJOR JT/BURSA W/O US (08/25/2022 8:00 AM POLICE CAPTAIN PRECINCT) Narrative George Sepulveda MD - 08/25/2022 8:00 AM POLICE CAPTAIN PRECINCT Jossie Montalvo PA ? 08/25/2022 ??2:45 PM [...] of Local Anesthesia Given 08/25/2022 2:45 PM POLICE CAPTAIN PRECINCT 4 mL Left Knee methylPREDNISolone acetate (DEPO-medrol) injection 80 mg 80 mg, intra-articular, One-Time Injection, Starting on Wed08/25/22 at 1445, For 1 doseIndications:Primary osteoarthritis of both knees Given 08/25/2022 2:45 PM POLICE CAPTAIN PRECINCT 80 mg Left Knee documented in this encounter Care Teams Automobile Engine Assembler Relationship Specialty Start Date End Date No, Physician PCP - General 05/14/22 09/29/22 Unknown, Notinfile 03/12/22 [place] [address] [address] 03/12/22 documented as of this encounter
--- OUTSIDE RECORDS SUMMARY | 2024-10-11 03:04 | XMS_ITS | Encounter Summary ---
Author Organization [facility] Address [address] [place] [address] Phone Care Team Providers Care Research Home Economist Name Role Phone No, Physician Primary Care Provider [phone] Unknown, Notinfile Unavailable Unavailable Santino Funk MD Unavailable [phone] Encounter Details Date Type Department Care Team (Late st Contact Info) Description 05/21/2022 Telephone [facility] Surgery [address] [facility] Medical Office Building [address], [place] [address] [place] [address] [facility] [address] [place] [address] Social History Tobacco Use Types [...] on file Legal Sex Male 3:25 PM CHAIN SPLITTER Gender Identity Not on file Sexual Orientation [...] (Latest Contact Info) Description 10/23/2024 10:00 AM CHAIN SPLITTER Hospital Encounter [facility] Operating Room [address] [place] [address] [place] [address] [address] 10/23/2024 10:00 AM CHAIN SPLITTER - 10/23/2024 1:00 PM CHAIN SPLITTER Surgery [facility] Operating Room [address] [place] [address] [place] [address] [address] ARTHROPLASTY TOTAL KNEE LEFT Scheduled Procedures Name Priority Associated Diagnoses Date/Ti me ARTHROPLASTY TOTAL KNEE left knee osteoarthritis 10/23/2024 10:00 AM CHAIN SPLITTER ESOPHAGOGASTRODUODENOSCOPY Dysphagia, unspecified type documented as of this encounter Visit Diagnoses Not on filedocumented in this encounter Care Teams Research Home Economist Relationship Specialty Start Date End Date No, Physician PCP - General 05/14/22 09/29/22 Unknown, Notinfile 03/12/22 [place] [id number] [facility] [address] [place] [phone] 03/12/22 documented as of this encounter
--- OUTSIDE RECORDS SUMMARY | 2024-10-11 03:04 | XMS_ITS | Encounter Summary ---
Author Organization [facility] Healthcare Address [address] [place] [address] Care Team Providers Care Impregnator Operator Name Role Phone Unknown, Notinfile Primary Care Provider Unavail able No, Physician Primary Care Provider [phone] Unknown, Notinfile Unavailable Unavailable Santino Funk MD Unavailable Encounter Details Date Type Department Care Team (Late st Contact Info) Description 05/05/2022 Telephone [facility] Services at [address] [address] [place] [address] [facility] [address] [place] [address] Social History Tobacco Use Types [...] file Legal Sex Male 3:25 PM MANAGER OF ORGANIZATIONAL DEVELOPMENT Gender Identity Not on file Sexual Orientation Not on file documented as of this encounter Miscellaneous Notes * Telephone Encounter - Ginger Olmos - 05/05/2022 10:45 AM CDT We have attemped to reach this patient via telephone to start Therapy services and have been unsuccessful. Please inform patient to contact us to schedule if interested [phone] Thank You! documented in this encounter Plan of Treatment Upcoming Encounters Date Type Department Care Team (Latest Contact Info) Description 10/23/2024 10:00 AM MANAGER OF ORGANIZATIONAL DEVELOPMENT Hospital Encounter [facility] Operating Room [address] [place] [address] [place] [address] [address] 10/23/2024 10:00 AM MANAGER OF ORGANIZATIONAL DEVELOPMENT - 10/23/2024 1:00 PM MANAGER OF ORGANIZATIONAL DEVELOPMENT Surgery [facility] Operating Room [address] [place] [address] [place] [address] [address] ARTHROPLASTY TOTAL KNEE LEFT Scheduled Procedures Name Priority Associated Diagnoses Date/Ti me ARTHROPLASTY TOTAL KNEE left knee osteoarthritis 10/23/2024 10:00 AM MANAGER OF ORGANIZATIONAL DEVELOPMENT ESOPHAGOGASTRODUODENOSCOPY Dysphagia, unspecified type documented as of this encounter Visit Diagnoses Not on filedocumented in this encounter Care Teams Impregnator Operator Relationship Specialty Start Date End Date Unknown, Notinfile PCP - General 03/12/22 05/13/22 No, Physician PCP - General 05/14/22 09/29/22 Unknown, Notinfile 03/12/22 [place] [id number] [facility] [address] [address] 03/12/22 documented as of this encounter
--- OUTSIDE RECORDS SUMMARY | 2024-10-11 03:04 | XMS_ITS | Encounter Summary ---
Author Organization [facility] Healthcare Address [address] [place] [address] Care Team Providers Care Experimental Plastics Fabricator Name Role Phone Santino Funk MD Primary Care Provider + Encounter Details Date Type Department Care Team (Latest Contact Info) Description 11/24/2021 6:03 AM SOCIAL SECURITY SPECIALIST - 11/26/2021 3:53 PM SOCIAL SECURITY SPECIALIST Hospital Encounter [facility] [address] [place] [address] George Sepulveda MD [address] [place] [id number] Primary osteoarthritis of both knees Discharge [...] on file Legal Sex Male 3:25 PM SOCIAL SECURITY SPECIALIST Gender Identity Not on file Sexual Orientation Not on file documented as of this encounter Last Filed Vital Signs Vital Sign Reading Time Taken Comments Blood Pressure 152/73 11/26/2021 8:15 AM SOCIAL SECURITY SPECIALIST Pulse 59 11/26/2021 8:15 AM SOCIAL SECURITY SPECIALIST Temperature 36.7 ??C (98.1 ??F) 11/26/2021 8:15 AM CS T Respiratory Rate 20 11/26/2021 8:15 AM SOCIAL SECURITY SPECIALIST Oxygen Saturation 98% 11/26/2021 8:15 AM SOCIAL SECURITY SPECIALIST Inhaled Oxygen Concentration - - Weight 95.3 kg (210 lb) 11/26/2021 9:04 AM SOCIAL SECURITY SPECIALIST Height 180.3 cm (5' 11 ) 11/24/2021 7:32 AM SOCIAL SECURITY SPECIALIST Body Mass Index 29.29 11/24/2021 7:32 AM SOCIAL SECURITY SPECIALIST documented in this encounter Discharge Diagnoses Diagnosis [...] - PERSONAL HISTORY OF NICOTINE DEPENDENCE Other custodial (current) drug therapy - OTHER LONGTERM (CURRENT) DRUG THERAPY documented in this encounter Discharge Summaries * Jossie Montalvo PA - 11/26/2021 3:12 PM CST Inpatient Discharge Summary BRIEF OVERVIEW Admitting Provider: George Sepulveda MD Discharge Provider: George Sepulveda MD Primary Care Physician at Discharge: Santino Funk MD [phone] Admission Date: 11/24/2021 Discharge Date: 11/26/2021 Admission Location: [facility] [place] Problems/Diagnoses: Principal Problem: Primary osteoarthritis of both [...] of walker?: Yes DME services provided by: [facility] Discharge Medications: Current Medications TAKE these medications [...] 03/12/2022 10:30 AM Nayan Mahajan II, MD [facility] [employer]ks[facility] Specialty Cosigned by George Sepulveda MD at 11/26/2021 4:08 PM SOCIAL SECURITY SPECIALIST AL SECURITY SPECIALIST AL SECURITY SPECIALIST documented in this encounter Discharge Instructions * Appointments* Nalini Dunham RN - 11/26/2021 3:04 PM SOCIAL SECURITY SPECIALIST [facility] has been set up with [facility] [employer] [facility] [phone]. They will be contacting you regarding initial visit. AL SECURITY SPECIALIST documented in this encounter Medications at [...] this encounter Progress Notes * Michelle Carrasco, RIBBON TIER - 11/26/2021 1:10 PM CST Physical Therapy [...] ulcer Peptic ulcer disease ??? Seizures (CMS/HCC) ([facility]) 1998 last seizure in 1997 ??? SOB (shortness of breath) on exertion ??? Subchondral insufficiency fracture of condyle of left femur (CMS/HCC) ([facility]) ??? Vertigo ??? Visual disturbance hx of double vision, corrective lenses Past Surgical History: Procedure Laterality Date ??? CATARACT EXTRACTION, BILATERAL Bilateral 2017 ??? HERNIA REPAIR 1980 Hiatal Hernia repair ??? KNEE ARTHROSCOPY Bilateral ??? THYROIDECTOMY 12/27/2019 Patient Active Problem List Diagnosis ??? Primary osteoarthritis of both knees ??? Subchondral insufficiency fracture of condyle of left femur (CMS/HCC) ([facility]) ??? Closed fracture of left tibial plateau [...] Isabella Moya, PT at 11/27/2021 8:44 AM SOCIAL SECURITY SPECIALIST AL SECURITY SPECIALIST AL SECURITY SPECIALIST * Ap Pang COTA - 11/26/2021 10:34 AM CST Occupational Therapy NOTE / SESSION TYPE: DAILY PROGRESS / TREATMENT Patient's Name: Gunjan Gtz Jr. Age / Sex: 76 y.o. / male Room: [place] [address] : 1945 Date of service: 11/26/21 TIME [...] (Added by TW Conv) ??? Alzheimer's dementia ([facility]) ??? Asthma ??? Cataract ??? Closed fracture [...] ulcer Peptic ulcer disease ??? Seizures (CMS/HCC) ([facility]) 1998 last seizure in 1997 ??? SOB (shortness of breath) on exertion ??? Subchondral insufficiency fracture of condyle of left femur (CMS/HCC) ([facility]) ??? Vertigo ??? Visual disturbance hx of [...] session: Yes Completed patient handoff and notified ANALYST GEOCHEMICAL PROSPECTING / RN, name: Meagan, of patient's location and functional status upon completion of session Cognitive / Perceptual: Followed all commands without difficulty. Mobility / Transfers: Bed Mobility: SPV supine to/from sit using gait belt as leg sonographer to assist with RLE Transfer(s): CGA sit to/from stand from EOB with wheeled walker and MIN verbal cues for hand placement CAR TRANSFER LOCATION: CAR SIMULATOR SET AT HEIGHT OF 20 INCHES PER PATIENT'S HOME VEHICLE OVERALL ASSIST LEVEL: INCIDENTAL TOUCHING ASSISTANCE DEVICE: WHEELED WALKER ADDITIONAL DOCUMENTATION: using leg sonographer to assist with RLE with increased time Patient verbalized good understanding of shower transfer technique to shower bench with DME education and pricing options at his local [facility]. Did not attempt transfer at this time [...] Winifred Boyce OT at 11/27/2021 3:03 PM SOCIAL SECURITY SPECIALIST AL SECURITY SPECIALIST AL SECURITY SPECIALIST * Michelle Carrasco, RIBBON TIER - 11/26/2021 9:10 AM CST Physical Therapy [...] ulcer Peptic ulcer disease ??? Seizures (CMS/HCC) ([facility]) 1998 last seizure in 1997 ??? SOB (shortness of breath) on exertion ??? Subchondral insufficiency fracture of condyle of left femur (CMS/HCC) ([facility]) ??? Vertigo ??? Visual disturbance hx of double vision, corrective lenses Past Surgical History: Procedure Laterality Date ??? CATARACT EXTRACTION, BILATERAL Bilateral 2017 ??? HERNIA REPAIR 1980 Hiatal Hernia repair ??? KNEE ARTHROSCOPY Bilateral ??? THYROIDECTOMY 12/27/2019 Patient Active Problem List Diagnosis ??? Primary osteoarthritis of both knees ??? Subchondral insufficiency fracture of condyle of left femur (CMS/HCC) ([facility]) ??? Closed fracture of left tibial plateau [...] Isabella Moya, PT at 11/27/2021 8:46 AM SOCIAL SECURITY SPECIALIST AL SECURITY SPECIALIST AL SECURITY SPECIALIST AL SECURITY SPECIALIST * Norma Park PA - 11/26/2021 8:54 [...] He would like discharge medications sent to [facility] pharmacy in [place]. Dressing care reviewed. Patient denies any further questions at this time. LORI Castro 11/26/2021 8:58 AM Cosigned by George Sepulveda MD at 11/26/2021 12:20 PM SOCIAL SECURITY SPECIALIST AL SECURITY SPECIALIST AL SECURITY SPECIALIST * Nalini Dunham RN - 11/25/2021 3:24 PM CST CM Initial Assessment Interview Note Information Obtained From: Patient (11/25/211227) Admission Source: Elective surgery Impression: Osteoarthritis of the right and left knee. S/p arthroplasty total right knee, left kneeinjection Plan Includes: PT/OT evaluation, pain management, labs Primary Source of Transportation: Drives self Health Insurance Coverage: [employer] OOS/Medicare A&B Prescription Coverage: yes Pharmacy: [facility] [id number] Primary Care Provider: Santino Funk MD Prior to Admission: Primary Caregiver: Self Support System: Spouse/Significant Other Support system contact info (name, phone, availablity): Alon Gtz () [phone] Home Care Services: No Durable Medical Equipment: Cane (single prong), Walker (wheeled), Shower chair Living Arrangements: Spouse/significant other Type of Residence: Private residence Steps in home? : Yes, Outside of home (11/25/211227) Potential discharge needs include: Home Health: Physical therapy, Occupational therapy (11/25/211227) Dialysis: n/a Behavioral Health Services: no Patient expects to be Discharged to: Private residence, (11/25/211227) Additional Information: CLINICAL PROGRAM CONSULTANT and SDOH completed with patient at bedside. [...] work consult entered. Patient is agreeable to [facility] HH with SOC on 11/27. CMwill continue [...] Collaboration with patient, MD, direct care nurse, [employer] Stockyard Supervisor, Nurse Coordinator and other members of the health care team to assure needed interventions completed. 2. Return patient to optimal level of self-care post discharge. 3. Instrumentation Engineer will follow for Discharge Planning - interventions as needed 4. Anticipated level of care at discharge 5. Planned Discharge Disposition Nalini Dunham RN, BSN - [phone] AL SECURITY SPECIALIST * Isis Marie - 11/25/2021 1:31 PM CST Physical Therapy PT PROGRESS NOTE Gunjan Gtz Jr. 76 y.o. 1945 Past Medical History: Diagnosis Date ??? Acute gastric ulcer without hemorrhage or perforation Ulcer, gastric, acute - (Added by TW Conv) ??? Alzheimer's dementia ([facility]) ??? Asthma ??? Cataract ??? Closed fracture [...] ulcer Peptic ulcer disease ??? Seizures (CMS/HCC) ([facility]) 1998 last seizure in 1997 ??? SOB (shortness of breath) on exertion ??? Subchondral insufficiency fracture of condyle of left femur (CMS/HCC) ([facility]) ??? Vertigo ??? Visual disturbance hx of [...] Isabella Moya, PT at 11/25/2021 4:45 PM SOCIAL SECURITY SPECIALIST AL SECURITY SPECIALIST AL SECURITY SPECIALIST AL SECURITY SPECIALIST * Peg Dunbar, OT - 11/25/2021 9:22 AM CST Occupational Therapy NOTE / SESSION TYPE: Initial Evaluation Patient Name: Gunjan Gtz Date of : 1945 Age / Sex: 76 y.o. / male Room: [facility] [address] Admit Date: 11/24/2021 Date of Service: 11/25/21 [...] (Added by TW Conv) ??? Alzheimer's dementia ([facility]) ??? Asthma ??? Cataract ??? Closed fracture [...] ulcer Peptic ulcer disease ??? Seizures (CMS/HCC) ([facility]) 1998 last seizure in 1997 ??? SOB (shortness of breath) on exertion ??? Subchondral insufficiency fracture of condyle of left femur (CMS/HCC) ([facility]) ??? Vertigo ??? 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 Social roles / Hobbies: mostly works Patient / Family goal(s): none stated OBJECTIVE: Appearance: Presentation upon OT arrival: Patient Supine Presentation upon OT departure: Patient Sitting in bedside recliner Bed / chair alarm in place and activated upon OT departure: Yes Call light within arms reach of patient at end of session: Yes Completed patient handoff and notified Physical Therapist / Physical Therapist Face Boss, name: Shan, of patient's location and functional status upon completion of session Cognitive / Perceptual Assessment: Alert and awake, oriented UE ROM / Strength / Coordination: (A)ROM - Right: wfl Strength - Right: 4/5 (A)ROM - Left: wfl Strength - Left: 4/5 Hand Dominance: Right Nnps Strength (Right) good Nnps Strength (Left): good Right Serial Opposition: Intact [...] (from Occupational Therapy) Active Problems Problem: [facility] Start Date: 11/25/21 Goal Start Date Expected [...] the discharge summary Peg Dunbar OT 11/25/21 AL SECURITY SPECIALIST * Jossie Montalvo PA - 11/25/2021 8:51 [...] George Sepulveda MD at 11/25/2021 9:17 AM SOCIAL SECURITY SPECIALIST AL SECURITY SPECIALIST AL SECURITY SPECIALIST * Isis Marie - 11/25/2021 8:12 AM [...] ulcer Peptic ulcer disease ??? Seizures (CMS/HCC) ([facility]) 1998 last seizure in 1997 ??? SOB (shortness of breath) on exertion ??? Subchondral insufficiency fracture of condyle of left femur (CMS/HCC) ([facility]) ??? Vertigo ??? Visual disturbance hx of [...] . Patient is driving and working at [employer]. EQUIPMENT OWNED: wheeled walker, cane, shower chair [...] F+ supported Dynamic standing balance: F supported [facility] 6 CLICK: Basic Mobility - 6 Click [...] Isabella Moya, PT at 11/25/2021 4:30 PM SOCIAL SECURITY SPECIALIST AL SECURITY SPECIALIST AL SECURITY SPECIALIST * Becky Moon, PT - 11/24/2021 1:10 PM CST Physical Therapy Med-cancel - Per RN patient just given medicine for abdominal cramps. In addition, patient with increased rigor, and just received from PACU. Will attempt physical therapy evaluation at a later time as schedule allows. Becky Moon, PT 11/24/21 1:11 PM AL SECURITY SPECIALIST documented in this encounter H&P Notes [...] is actually scheduled for knee replacement at [facility] at the end of this year so [...] of skin or subcutaneous tissue, Seizures (CMS/HCC) ([facility]) (1997), SOB (shortness of breath) on exertion, Subchondral insufficiency fracture of condyle of left femur(CMS/HCC) ([facility]), and Visual disturbance.He has no past medical [...] knees, with subchondral sclerosis, subchondral cysts and [id number] contact in the medial compartment. Patellofemoral changes [...] will be at the time of surgery. AL SECURITY SPECIALIST documented in this encounter Consult Notes [...] in the office. Job ID/VF Job ID: [id number] AL SECURITY SPECIALIST * Jessie Andrade NP - 11/25/2021 9:13 [...] (Added by TW Conv) ??? Alzheimer's dementia ([facility]) ??? Asthma ??? Cataract ??? Closed fracture [...] Peptic ulcer Peptic ulcer disease ??? Seizures ([facility]) ([facility]) 1998 last seizure in 1997 ??? SOB (shortness of breath) on exertion ??? Subchondral insufficiency fracture of condyle of left femur ([facility]) ([facility]) ??? Vertigo ??? Visual disturbance hx of [...] you have any questions. SEAN Dahl [facility] [employer] [facility] Department of Surgery, Division of Urology [phone] 11/25/2021 9:14 AM AL SECURITY SPECIALIST AL SECURITY SPECIALIST AL SECURITY SPECIALIST documented in this encounter Nursing Notes * Meagan Alonso RN - 11/26/2021 3:37 PM CST Patient discharged to home via private vehicle accompanied by spouse. Discharge instructions reviewed with patient and/or marketing development representative. Mobile pharmacy medications and/or prescriptions provided. Belongings/home medications returned. AL SECURITY SPECIALIST * Meagan Alonso RN - 11/26/2021 9:18 [...] in flowsheets. Plan of care discussed with patient/marketing development representative, including as it relates to Principal Problem: Primary osteoarthritis of both knees Patient progressing. Clinical goals for the shift: Pain management, Discharge home. Education provided includes Discharge Planning, Fall Prevention and Pain Management. Patient and/or marketing development representative Verbalizes understanding. Will continue to monitor. AL SECURITY SPECIALIST documented in this encounter Miscellaneous Notes * Plan of Care - Nalini Dunham RN - 11/26/2021 2:59 PM CST Home Care Coordination: home health arranged with [facility] per pt choice. Entered onAVS, okay to d/c from CM standpoint. No further f/u from at this time. CM spoke with Patricia at [facility]. They will be contacting patient with SOC, patient will be seen Friday 12/01 unless there is an opening. Nalini Dunham RN, BSN - [phone] AL SECURITY SPECIALIST * Plan of Care - Nalini Dunham RN - 11/26/2021 2:16 PM CST Patient has been accepted by [facility] for . Documentation and HH order faxed to Patricia (ph. [phone]/fax [phone]). Therapist will review for completion. Nalini Dunham RN, BSN - CM [phone] AL SECURITY SPECIALIST * Plan of Care - Nalini Dunham RN - 11/26/2021 12:01 PM CST LUCIO was informed by Maisha Gimenez with [facility] that patient's primary insurance is a high deductible plan and he has not met any of his deductible or out of pocket and they do not accept his secondary insurance, [employer]. LUCOI spoke with patient who thought about paying for [facility] services but then checked with his who is recovering from knee surgery and he would like to see if [facility] would be able to see him at home. LUCIO spoke with Patricia ([phone]) and she will check with the HHtherapist to see if patient is in the coverage area and call me back. Nalini Dunham RN, BSN - [phone] AL SECURITY SPECIALIST * Plan of Care - Ap Pang COTA - 11/26/2021 11:44 AM CST Problem: OT Misc Goal: OT STG - Misc 3 Description: Patient will complete car/shower transfer with supervision one time Outcome: Progressing Note: LOCATION: CAR SIMULATOR SET AT HEIGHT OF 20 INCHES PER PATIENT'S HOME VEHICLE OVERALL ASSIST LEVEL: INCIDENTAL TOUCHING ASSISTANCE DEVICE: WHEELED WALKER ADDITIONAL DOCUMENTATION: using leg sonographer to assist with RLE with increased time Patient verbalized good understanding of shower transfer technique to shower bench with DME education and pricing options at his local [facility]. Did not attempt transfer at this time due to pain. ANGI Rodriguez 11/26/21 11:45 AM AL SECURITY SPECIALIST * Plan of Care - Patricia Chen [...] for the Shift: safety and comfort Summary: AL SECURITY SPECIALIST * Plan of Care - Maxime Carter LMSW - 11/25/2021 2:17 PM CST MOTORBOAT MECHANIC INBOARD/OUTBOARD attempted to speak to pt to provide advanced directive information. MOTORBOAT MECHANIC INBOARD/OUTBOARD was unable to speak to him. MOTORBOAT MECHANIC INBOARD/OUTBOARD provided advanced directive information in his chart. MOTORBOAT MECHANIC INBOARD/OUTBOARD will continue to follow as needed. Maxime Carter LMSW [employer] Stock[employer] Supervisor Case Management, 10th Floor 11/25/21 2:17 PM AL SECURITY SPECIALIST * Plan of Care - Gem Gimenez RN - 11/25/2021 1:22 PM CST Home Health Consult received patient accepted to [facility] home care. ADD 11/26 with SOC 11/27 for PT/OT. LUCIO Pearce notified. AL SECURITY SPECIALIST * Plan of Care - Peter Negron [...] I will continue to monitor the patient AL SECURITY SPECIALIST * Significant Event - Kelin Mendiola NP - 11/24/2021 9:00 PM CST Significant Event Hospitalist Service Hospitalist service called and accepted for medical consult. On further review of the chart it is noted that the patient's PCP is Dr. Santino Funk who see's his own patients. Nursing on the 10th floor instructed to call Dr. Funk for consult. AL SECURITY SPECIALIST * Op Note - George Sepulveda MD - 11/24/2021 8:30 AM CST Operative Note Name: Gunjan Gtz Jr. : 1945 AGE: 76 y.o. DATE: 11/24/2021 SURGEON: George Sepulveda MD RAIL OPERATOR: CHECO Sears, CHECO Jones PREOPERATIVE DIAGNOSIS: 1. [...] with a #1 Vicryl stitch in interrupted [id number] fashion. The subcutaneous tissue was closed with 2-0 Vicryl and skin was closed with a staple closure. Sterile dressings were then applied. The patient then awoken from anesthesiaand transferred to the PACU in stable condition. All sponge and needle counts were correct. pathologist assistant Norma Park helped to position the [...] procedure. George Sepulveda MD 11/24/2021 9:37 AM AL SECURITY SPECIALIST AL SECURITY SPECIALIST documented in this encounter Plan of Treatment Upcoming Encounters Date Type Department Care Team (Latest Contact Info) Description 10/23/2024 10:00 AM SOCIAL SECURITY SPECIALIST Hospital Encounter [facility] Operating Room [address] [place] [address] [place] [address] [id number] 10/23/2024 10:00 AM SOCIAL SECURITY SPECIALIST - 10/23/2024 1:00 PM SOCIAL SECURITY SPECIALIST Surgery [facility] Operating Room [address] [place] [address] [place] [address] [address] ARTHROPLASTY TOTAL KNEE LEFT Scheduled Procedures Name Priority Associated Diagnoses Date/Ti me ARTHROPLASTY TOTAL KNEE left knee osteoarthritis 10/23/2024 10:00 AM SOCIAL SECURITY SPECIALIST ESOPHAGOGASTRODUODENOSCOPY Dysphagia, unspecified type documented as of this encounter Procedures Procedure Name Priority Date/Time Associated Diagnosis Comments EGFR Routine 11/25/2021 10:15 AM SOCIAL SECURITY SPECIALIST DIFFERENTIAL AUTO Routine 11/25/2021 10: 15 AM SOCIAL SECURITY SPECIALIST CBC WITH AUTO DIFFERENTIAL Routine 11/25/2021 10:15 AM SOCIAL SECURITY SPECIALIST BASIC METABOLIC PANEL Routine 11/25/2021 10:15 AM SOCIAL SECURITY SPECIALIST SURGICAL PATHOLOGY Routine 11/24/2021 12 :43 PM SOCIAL SECURITY SPECIALIST Primary osteoarthritis of both knees XR KNEE RIGHT 1 OR 2 VIEWS IP Routine 11/24/2021 10:40 AM SOCIAL SECURITY SPECIALIST ARTHROPLASTY TOTAL KNEE 11/24/2021 8:23 AM SOCIAL SECURITY SPECIALIST Primary osteoarthritis of both knees B CHECK SAMPLE STAT 11/24/2021 7:57 AM SOCIAL SECURITY SPECIALIST documented in this encounter Results * eGFR (11/25/2021 10:15 AM SOCIAL SECURITY SPECIALIST) eGFR 64 mL/min/1. 73 m2 MARVIN FISHER [...] reviewed 2021. Blood 11/25/2021 10:1 5 AM SOCIAL SECURITY SPECIALIST 11/25/2021 10:23 AM SOCIAL SECURITY SPECIALIST us George Sepulveda MD LAB BLOOD ORDERABLES Krystina solitario Result [facility] [address] [address] Department [place] [address] * (ABNORMAL) Differential, auto (11/25/2021 10:15 AM SOCIAL SECURITY SPECIALIST) Neutrophil abs 9.2(H) 1.7 - 6.5 K/cumm [facility] Imm gran abs 0.1 0.0 - 0.1 K/cumm [facility] Lymphocyte abs 1.7 0.8 - 3.3 K/cumm [facility] Monocyte abs 1.3(H) 0.2 - 0.8 K/cumm [facility] Eosinophil abs 0.0 0.0 - 0.5 K/cumm [facility] Basophil abs 0.0 0.0 - 0.1 K/cumm [facility] Neutrophil pct 74.7 % [facility] Comment: Interpretive Data Percent cell count reference ranges are not reported, since discordance with absolute values may lead to misinterpretation of CBC data. Current Interpretive Data was last revised on 2018. Imm gran pct 0.5 % [facility] Comment: Interpretive Data Percent cell count reference ranges are not reported, since discordance with absolute values may lead to misinterpretation of CBC data. Current Interpretive Data was last revised on 2018. Lymphocyte pct 13.7 % [facility] Comment: Interpretive Data Percent cell count reference ranges are not reported, since discordance with absolute values may lead to misinterpretation of CBC data. Current Interpretive Data was last revised on 2018. Monocyte pct 10.7 % [facility] Comment: Interpretive Data Percent cell count reference [...] on 2018. Blood 11/25/2021 10:1 5 AM SOCIAL SECURITY SPECIALIST 11/25/2021 10:23 AM SOCIAL SECURITY SPECIALIST George Sepulveda MD LAB BLOOD ORDERABLES Krystina solitario Result [facility] [address] [address] Department [place] [address] * (ABNORMAL) CBC with auto differential (11/25/2021 10:15 AM SOCIAL SECURITY SPECIALIST) WBC 12.3(H) 3.8 - 9.9 K/cumm [facility] Hgb 13.8 13.0 - 17.5 g/dL [facility] Hct 41.2 38.9 - 50.3 % [facility] Plt 194 150 - 400 K/cumm [facility] MPV 10.2 9.1 - 12.3 fL [facility] RBC 4.03(L) 4.30 - 5.80 M/cumm [facility] MCV 102.2(H) 81.3 - 96.4 fL [facility] MCH 34.2(H) 27.1 - 33.3 pg [facility] MCHC 33.5 32.3 - 35.7 g/dL [facility] RDW CV 12.4 11.1 - 14.9 % [facility] RDW SD 47.6 35.7 - 48.1 fL [facility] NRBC abs 0.00 0.00 - 0.01 K/cumm [facility] Blood 11/25/2021 10:1 5 AM SOCIAL SECURITY SPECIALIST 11/25/2021 10:23 AM SOCIAL SECURITY SPECIALIST George Sepulveda MD LAB BLOOD ORDERABLES Krystina l Result Performing Organization Address City/[place] Health/ZIP Co de Phone Number [facility] [address] [address] [place] [address] * Basic metabolic panel (11/25/2021 10:15 AM SOCIAL SECURITY SPECIALIST) Sodium 140 135 - 145 mmol/L CERNER Potassium, pl 4.4 3.3 - 4.9 mmol/L CERNER Chloride 105 97 - 110 mmol/L CERNER CH CO2 24 22 - 32 mmol/L CERNER Anion gap 11 2 - 15 mmol/L CERNER BUN 18 8 - 25 mg/dL [facility] Creatinine 1.18 0.80 - 1.30 mg/dL CERNER Glucose 144 70 - 199 mg/dL [facility] Comment: Interpretive Data Fasting glucose >/= 126 [...] mg/dL CERNER Blood 11/25/2021 10:1 5 AM SOCIAL SECURITY SPECIALIST 11/25/2021 10:23 AM SOCIAL SECURITY SPECIALIST George Sepulveda MD LAB BLOOD ORDERABLES Krystina l Result Performing Organization Address City/[facility]/ZIP Co de Phone Number [facility] [address] [address]ett [place] [address] * Surgical pathology (11/24/2021 12:43 PM SOCIAL SECURITY SPECIALIST) Tissue (Bone Fragment(s),) 11/24/2021 9:00 AM SOCIAL SECURITY SPECIALIST Narrative PATHOLOGY CH - 11/26/2021 2:46 PM SOCIAL SECURITY SPECIALIST EPIC results best viewed via link to PDF [facility] Department of Pathology [address] [place] [id number] Note to Patients: This report may contain [...] Report Patient Name: ??GUNJAN GTZ JR Address: ??[address] [place] [address], ??[place], [place] ??[address] Gender: ??M : ??1945 (Age: 76) Service: ??Laboratory Location: ??[address] Hospital #: ??[id number] Patient Type: ??[facility] Accession # ?[id number] Taken: ??11/24/2021 Received: ??11/24/2021 Accessioned: ??11/24/2021 Reported: [...] by the Surgical Pathology Department at [facility] as part of an ongoing quality assurance monitor body program and in compliance with federally mandated [...] characteristics determined by the Surgical Pathology Department [facility]. ??It has not been cleared or approved by the U. S. Food and Drug Administration. George Sepulveda MD LAB PATHOLOGY ORDERABLES Final Result PATHOLOGY [address] [place] [address] * XR Knee Right 1 or 2 View (11/24/2021 10:40 AM SOCIAL SECURITY SPECIALIST) Anatomical Region Laterality Modality Lower Extremities, Knee Right Computed Radiography 11/24/2021 10:5 9 AM SOCIAL SECURITY SPECIALIST Impressions 11/24/2021 10:59 AM SOCIAL SECURITY SPECIALIST Right total arthroplasty with components in good position. Electronically signed by: Cat Sandoval M.D. Narrative 11/24/2021 10:59 AM SOCIAL SECURITY SPECIALIST EXAMINATION: XR KNEE RIGHT 1 OR 2 [...] esult * Check Sample (11/24/2021 7:57 AM SOCIAL SECURITY SPECIALIST) ABO Rh O Negative MARVIN FISHER [facility] OTHER 11/24/2021 7:57 AM SOCIAL SECURITY SPECIALIST 11/24/2021 7:57 AM SOCIAL SECURITY SPECIALIST George Sepulveda MD LAB BLOOD ORDERABLES Krystina l Result MARVIN [address] [address] Department [place] [address] documented in this encounter Visit [...] Wed11/24/21 at 2100 Given 11/25/2021 9:55 PM SOCIAL SECURITY SPECIALIST 2,000 Units Given 11/24/2021 9:51 PM SOCIAL SECURITY SPECIALIST 2,000 Units donepeziL (ARICEPT) tablet 10 mg 10 mg, oral, Nightly, First dose on Wed11/24/21 at 2100 Given 11/25/2021 9:54 PM SOCIAL SECURITY SPECIALIST 10 mg Given 11/24/2021 9:49 PM SOCIAL SECURITY SPECIALIST 10 mg famotidine (PEPCID) tablet 20 mg 20 mg, oral, 2 times daily, First dose on Wed11/24/21 at 1230, Indications: HeartburnIndications:Heartburn Given 11/26/2021 8:18 AM SOCIAL SECURITY SPECIALIST 20 mg Given 11/25/2021 9:54 PM SOCIAL SECURITY SPECIALIST 20 mg Given 11/25/2021 8:54 AM SOCIAL SECURITY SPECIALIST 20 mg ketorolac (TORADOL) 15 mg/mL injection 15 mg 15 mg, intravenous, Every 6 hours PRN, 2nd line for pain, Starting on Wed11/24/21 at 1149, For 5 days, For Adult IV push, administer over 15 seconds Given 11/26/2021 10:50 AM SOCIAL SECURITY SPECIALIST 15 mg Given 11/25/2021 5:18 PM SOCIAL SECURITY SPECIALIST 15 mg Given 11/25/2021 8:54 AM SOCIAL SECURITY SPECIALIST 15 mg Lactated Ringer's (LR) infusion - ADS Override Pull Starting on Wed11/24/21 at 1030, For 1 dose, Created by cabinet override Lactated Ringer's (LR) infusion 30 mL/hr, intravenous, Continuous, Starting on Wed11/24/21 at 0745 New Bag 11/24/2021 11:01 AM SOCIAL SECURITY SPECIALIST 30 mL/hr 30 mL/hr Restarted 11/24/2021 10:09 AM SOCIAL SECURITY SPECIALIST New Bag 11/24/2021 8:24 AM SOCIAL SECURITY SPECIALIST 50 mL/hr levothyroxine (SYNTHROID) tablet 150 mcg 150 mcg, oral, Daily (early AM), First dose on Wed11/25/21 at 0600, Administer on an empty stomach, preferably 30 minutes before breakfast. Take 4 hours apart from antacids, iron and calcium products. Given 11/26/2021 6:05 AM SOCIAL SECURITY SPECIALIST 150 mcg Given 11/25/2021 6:17 AM SOCIAL SECURITY SPECIALIST 150 mcg magnesium oxide (MAG-OX) tablet 200 mg 200 mg, oral, Nightly, First dose on Wed11/24/21 at 2100, 1 tablet = Magnesium oxide 400 mg = 241.3 mg elemental magnesium, Indications: hypomagnesemiaIndications:hypomagnesemia Given 11/25/2021 9:52 PM SOCIAL SECURITY SPECIALIST 200 mg Given 11/24/2021 9:51 PM SOCIAL SECURITY SPECIALIST 200 mg ondansetron (ZOFRAN) injection 4 mg 4 mg, intravenous, Administer over 2 Minutes, Every 6 hours PRN, nausea, vomiting, if not tolerating PO, Starting on Wed11/24/21 at 0723, Indications: nausea and vomitingIndications:nausea and vomiting Given 11/24/2021 5:18 PM SOCIAL SECURITY SPECIALIST 4 mg ondansetron ODT (ZOFRAN-ODT) disintegrating tablet 4 mg 4 mg, oral, Every 6 hours PRN, nausea, vomiting, Starting on Wed11/24/21 at 0723, Indications: nausea and vomitingIndications:nausea and vomiting oxybutynin XL (DITROPAN-XL) extended release tablet 10 mg 10 mg, oral, Nightly, First dose on Wed11/24/21 at 2100, Do not crush, chew, cut, dissolve, open or otherwise manipulate tablet/capsule. Given 11/24/2021 9:52 PM SOCIAL SECURITY SPECIALIST 10 mg oxyCODONE-acetaminophen (PERCOCET) 10-325 mg per tablet 1 tablet 1 tablet, oral, Every 4 hours PRN, 1st line for pain, Starting on Wed11/24/21 at 1149, Indications: PainIndications:Pain Given 11/26/2021 1:10 PM SOCIAL SECURITY SPECIALIST 1 tablet Given 11/26/2021 8:58 AM SOCIAL SECURITY SPECIALIST 1 tablet Given 11/26/2021 4:56 AM SOCIAL SECURITY SPECIALIST [address] (PROTONIX) extended release tablet 40 mg 40 mg, oral, Daily, First dose on Wed11/24/21 at 1230, Do not crush, chew, cut, dissolve, open or otherwise manipulate tablet/capsule., Indications: Mucositis ProphylaxisIndications:Mucositis Prophylaxis Given 11/26/2021 8:18 AM SOCIAL SECURITY SPECIALIST 40 mg Given 11/25/2021 8:54 AM SOCIAL SECURITY SPECIALIST 40 mg Given 11/24/2021 12:53 PM SOCIAL SECURITY SPECIALIST 40 mg polyethylene glycol (MIRALAX) packet 17 g 17 g, oral, 2 times daily PRN, constipation, Starting on Wed11/25/21 at 0853, Indications: constipationIndications:constipation senna-docusate (PERICOLACE) 8.6-50 mg per tablet 2 tablet 2 tablet, oral, 2 times daily, First dose on Wed11/24/21 at 1230, Hold for diarrhea., Indications: constipationIndications:constipation Given 11/26/2021 8:17 AM SOCIAL SECURITY SPECIALIST 2 table ts Given 11/25/2021 9:52 PM SOCIAL SECURITY SPECIALIST 2 tablets Given 11/25/2021 8:54 AM SOCIAL SECURITY SPECIALIST 2 tablets simethicone (MYLICON) chewable tablet 80 mg 80 mg, oral, Every 4 hours PRN, flatulence, Starting on Wed11/24/21 at 1725 sodium chloride 0.9% flush 0.5-20 mL 0.5-20 mL, intra-catheter, Every 8 hours scheduled, First dose on Wed11/24/21 at 1400, Flush volume based on line type and size. , Indications: FlushingIndications:Flushing Given 11/26/2021 6:06 AM SOCIAL SECURITY SPECIALIST 10 mL Given 11/25/2021 9:56 PM SOCIAL SECURITY SPECIALIST 10 mL Given 11/24/2021 9:52 PM SOCIAL SECURITY SPECIALIST 10 mL sodium chloride 0.9% infusion 100 mL/hr, intravenous, Continuous, Starting on Wed11/24/21 at 1230, Phase I & Post-op Floor New Bag 11/24/2021 9:56 PM SOCIAL SECURITY SPECIALIST 100 mL/hr 100 mL/hr tamsulosin (FLOMAX) extended release capsule 0.4 mg 0.4 mg, oral, Nightly, First dose on Wed11/24/21 at 2100, Do not crush, chew, cut, dissolve, open or otherwise manipulate tablet/capsule. Given 11/25/2021 9:52 PM SOCIAL SECURITY SPECIALIST 0.4 mg Given 11/24/2021 9:50 PM SOCIAL SECURITY SPECIALIST 0.4 mg tiZANidine (ZANAFLEX) tablet 4 mg 4 mg, oral, Nightly, First dose on Wed11/24/21 at 2100, Administer on an empty stomach Given 11/25/2021 9:51 PM SOCIAL SECURITY SPECIALIST 4 mg Given 11/24/2021 9:52 PM SOCIAL SECURITY SPECIALIST 4 mg traZODone (DESYREL) tablet 50 mg 50 mg, oral, Nightly, First dose on Wed11/24/21 at 2100 Given 11/25/2021 9:51 PM SOCIAL SECURITY SPECIALIST 50 mg Given 11/24/2021 9:50 PM SOCIAL SECURITY SPECIALIST 50 mg documented in this encounter Discontinued [...] Recently Administered Medications Times are shown in SOCIAL SECURITY SPECIALIST. Scheduled Medication Order 11/24/2021 11/25/2021 11/26/2021 ceFAZolin [...] Negron) 2150 (Given - Provider: Patricia Chen, MARAH) traZODone (DESYREL) tablet 50 mg 50 mg, [...] 11/24/2021 documented in this encounter Care Teams Experimental Plastics Fabricator Relationship Specialty [place] [address] [address] [address] [place] [address] PCP - General 11/12/16 03/11/22 documented as of this encounter
--- OUTSIDE RECORDS SUMMARY | 2024-10-11 03:04 | XMS_ITS | Encounter Summary ---
Author Organization [facility] Healthcare Address [address] [place] [address] Care Team Providers Care Communications Technologist Name Role Phone Santino Funk MD Primary Care Provider + Unknown, Notinfile Unavailable Unavailable Santino Funk MD Unavailable [phone] Encounter Details Date Type Department Care Team (Late st Contact Info) Description 10/26/2022 10:05 AM TECHNICAL MARKETING CONSULTANT Lab [address] [address] Social History Tobacco Use Types [...] relatives? Three times a week 11/25/2021 Attends Evangelical Services Not on file 11/25 Active Member [...] on file Legal Sex Male 3:25 PM TECHNICAL MARKETING CONSULTANT Gender Identity Not on file Sexual Orientation Not on file documented as of this encounter Plan of Treatment Upcoming Encounters Date Type Department Care Team (Latest Contact Info) Description 10/23/2024 10:00 AM [facility] Hospital Encounter [facility] Operating Room [address] [place] [address] [place] [id number] [place] [address] 10/23/2024 10:00 AM TECHNICAL MARKETING CONSULTANT - 10/23/2024 1:00 PM TECHNICAL MARKETING CONSULTANT Surgery [facility] Operating Room [address] [place] [address] [place] [address] [facility] [address] [place], [place] [id number] ARTHROPLASTY TOTAL KNEE LEFT Scheduled Procedures Name Priority Associated Diagnoses Date/Ti me ARTHROPLASTY TOTAL KNEE left knee osteoarthritis 10/23/2024 10:00 AM TECHNICAL MARKETING CONSULTANT ESOPHAGOGASTRODUODENOSCOPY Dysphagia, unspecified type documented as of this encounter Procedures Procedure Name Priority Date/Time Associated Diagnosis Comments EGFR Routine 10/26/2022 10:10 AM TECHNICAL MARKETING CONSULTANT LIPID PANEL Routine 10/26/2022 10:10 AM TECHNICAL MARKETING CONSULTANT COMPREHENSIVE METABOLIC PANEL Routine 10/26/2022 10:10 AM TECHNICAL MARKETING CONSULTANT documented in this encounter Results * eGFR (10/26/2022 10:10 AM TECHNICAL MARKETING CONSULTANT) Pathologist [facility] eGFR 64 mL/min/1. 73 m2 MARVIN FISHER [...] reviewed 2021. Blood 10/26/2022 10:1 0 AM TECHNICAL MARKETING CONSULTANT 10/26/2022 10:45 AM TECHNICAL MARKETING CONSULTANT us Santino Funk MD LAB BLOOD ORDERABLES Fin al Result Performing Organization Address City/State/ZIP Co nc Phone Number MARVIN [address] [address] Department [place] [address] * (ABNORMAL) Lipid panel (10/26/2022 10:10 AM TECHNICAL MARKETING CONSULTANT) Cholesterol 209(H) 30 - 199 mg/dL MARVIN [...] CERNER CH Blood 10/26/2022 10:1 0 AM TECHNICAL MARKETING CONSULTANT 10/26/2022 10:31 AM TECHNICAL MARKETING CONSULTANT us Santino Funk MD LAB BLOOD ORDERABLES Fin al Result [facility] [address] [address] Department [place] [address] * Comprehensive metabolic panel (10/26/2022 10:10 AM TECHNICAL MARKETING CONSULTANT) Sodium 140 135 - 145 mmol/L CERNER [...] CERNER CH Blood 10/26/2022 10:1 0 AM TECHNICAL MARKETING CONSULTANT 10/26/2022 10:31 AM TECHNICAL MARKETING CONSULTANT us Santino Funk MD LAB BLOOD ORDERABLES Fin al [facility] [address] [address] Department [place] [address] documented in this encounter Visit Diagnoses Not on filedocumented in this encounter Care Teams Communications Technologist Relationship Specialty [place] [address] [address] [facility] [address] PCP - General Internal Medicine 09/30/22 05/04/23 Unknown, Notinfile 03/12/22 [place] [address] [address] [facility] [address] 03/12/22 documented as of this encounter
--- OUTSIDE RECORDS SUMMARY | 2024-10-11 03:04 | XMS_ITS | Encounter Summary ---
Author Organization [facility] Address [address] [place] [address] Care Team Providers Care Leach Tank Tender Name Role Phone No, Physician Primary Care Provider [phone] Unknown, Notinfile Unavailable Unavailable Santino Funk MD Unavailable [phone] Encounter Details Date Type Department Care Team (Late st Contact Info) Description 06/12/2022 Orders Only [facility] [address] [address] [place] [address] [address] Social History Tobacco Use Types Packs/Day Years Used Date Smoking Tobacco: Former Cigarettes 1 966 - 0463 Smokeless Tobacco: Never Alcohol Use Standard Drinks/Week [...] relatives? Three times a week 11/25/2021 Attends Sikhism Services Not on file 11/25 Active Member [...] file Legal Sex Male 3:25 PM HEAD PORTER BAGGAGE Gender Identity Not on file Sexual Orientation [...] Contact Info) Description 10/23/2024 10:00 AM HEAD PORTER BAGGAGE Hospital Encounter [facility] Operating Room [address] [place] [address] [place] [address] [address] 10/23/2024 10:00 AM HEAD PORTER BAGGAGE - 10/23/2024 1:00 PM HEAD PORTER BAGGAGE Surgery [facility] Operating Room [address] [place] [address] [place] [address] [id number] ARTHROPLASTY TOTAL KNEE LEFT Scheduled Procedures Name Priority Associated Diagnoses Date/Ti me ARTHROPLASTY TOTAL KNEE left knee osteoarthritis 10/23/2024 10:00 AM HEAD PORTER BAGGAGE ESOPHAGOGASTRODUODENOSCOPY Dysphagia, unspecified type documented as of [...] documented as of this encounter Care Teams Leach Tank Tender Relationship Specialty Start Date End Date No, Physician PCP - General 05/14/22 09/29/22 Unknown, Notinfile 03/12/22 [place] [address] [facility] [address] 03/12/22 documented as of this encounter
--- OUTSIDE RECORDS SUMMARY | 2024-10-11 03:04 | XMS_ITS | Encounter Summary ---
Author Organization [facility] Healthcare Address [address] [place] [address] Care Team Providers Care Concrete Truck Driver Name Role Phone No, Physician Primary Care Provider [phone] Unknown, Notinfile Unavailable Unavailable Santino Funk MD Unavailable [phone] Reason for Referral * Diagnostic Imaging (Routine) - Closed Specialty Diagnoses / Procedures Referred By Dillan mccallum Referred To Contact Diagnoses Swelling of both lower extremities Venous insufficiency Procedures [place] [address] [address] [place] [address] Phone: tel: fax: [facility] (All Locations) Referral ID Status Reason Start Date Expiration Date Visits Re quested Visits Authorized [id number] Closed 06/02/2022 07/02/2023 1 1 Reason for Visit * Diagnostic Imaging (Routine) - Closed Specialty Diagnoses / Procedures Referred By Dillan mccallum Referred To Contact Diagnoses Swelling of both lower extremities Venous insufficiency Procedures [place] [address] [address] [address] Phone: tel: fax: [facility] (All Locations) Referral ID Status Reason Start Date Expiration Date Visits Re quested Visits Authorized [id number] Closed 06/02/2022 07/02/2023 1 1 Encounter Details Date Type Department Care Team (Latest Contact Info) Description 06/23/2022 8:00 AM CDT - 06/23/2022 11:59 PM CDT Hospital Encounter [facility] [address] [place] [address] [place] [address] [facility] [address] [place] [address] Swelling of both lower extremities; Venous insufficiency [...] on file Legal Sex Male 3:25 PM TRUSS ASSEMBLER Gender Identity Not on file Sexual [...] (Latest Contact Info) Description 10/23/2024 10:00 AM TRUSS ASSEMBLER Hospital Encounter [facility] Operating Room [address] [place] [address] [place] [address] [address] 10/23/2024 10:00 AM TRUSS ASSEMBLER - 10/23/2024 1:00 PM TRUSS ASSEMBLER Surgery [facility] Operating Room [address] [place] [address] [place] [address] [facility] [address] [place] [address] ARTHROPLASTY TOTAL KNEE LEFT Scheduled Procedures Name Priority Associated Diagnoses Date/Ti me ARTHROPLASTY TOTAL KNEE left knee osteoarthritis 10/23/2024 10:00 AM TRUSS ASSEMBLER ESOPHAGOGASTRODUODENOSCOPY Dysphagia, unspecified type documented as [...] insufficiency documented in this encounter Care Teams Concrete Truck Driver Relationship Specialty Start Date End Date No, Physician PCP - General 05/14/22 09/29/22 Unknown, Notinfile 03/12/22 [place] [address] [address] 03/12/22 documented as of this encounter
--- OUTSIDE RECORDS SUMMARY | 2024-10-11 03:04 | XMS_ITS | Encounter Summary ---
Author Organization [facility] Healthcare Address [address] [place] [address] Care Team Providers Care Coffee Weigher Name Role Phone Santino Funk MD Primary Care Provider + Encounter Details Date Type Department Care Team (Latest Contact Info) Description 11/24/2021 10:28 AM LADLE PATCHER - 11/24/2021 11:59 PM LADLE PATCHER Hospital Encounter [facility] [address] [place], [place] [phone] Discharge Disposition: Discharge to home or self [...] on file Legal Sex Male 3:25 PM LADLE PATCHER Gender Identity Not on file Sexual Orientation [...] AM [facility] Hospital Encounter [facility] Operating Room [address] [place] [address] [place] [address] [address] 10/23/2024 10:00 AM LADLE PATCHER - 10/23/2024 1:00 PM [facility] Surgery [facility] Operating Room [address] [place] [address] [place] [address] [address] ARTHROPLASTY TOTAL KNEE LEFT Scheduled Procedures Name Priority Associated Diagnoses Date/Ti me ARTHROPLASTY TOTAL KNEE left knee osteoarthritis 10/23/2024 10:00 AM LADLE PATCHER ESOPHAGOGASTRODUODENOSCOPY Dysphagia, unspecified type documented as of this encounter Procedures Procedure Name Priority Date/Time Associated Diagnosis Comments XR KNEE RIGHT 1 OR 2 VIEWS IP Routine 11/24/2021 10:40 AM LADLE PATCHER documented in this encounter Results * XR Knee Right 1 or 2 View (11/24/2021 10:40 AM LADLE PATCHER) Anatomical Region Laterality Modality Lower Extremities, Knee Right Computed Radiography 11/24/2021 10:5 9 AM LADLE PATCHER Impressions 11/24/2021 10:59 AM LADLE PATCHER Right total arthroplasty with components in good position. Electronically signed by: Cat Sandoval M.D. Narrative 11/24/2021 10:59 AM LADLE PATCHER EXAMINATION: XR KNEE RIGHT 1 OR 2 [...] on filedocumented in this encounter Care Teams Coffee Weigher Relationship Specialty [place] [address] [facility] [place] [address] PCP - General 11/12/16 03/11/22 documented as of this encounter
--- OUTSIDE RECORDS SUMMARY | 2024-10-11 03:05 | XMS_ITS | Encounter Summary ---
Author Organization [facility] Address [address] [place] [address] Phone Care Team Providers Care Fire Engine Pump Operator Name Role Phone Santino Funk MD Primary Care Provider + Reason for Visit * Reason Comments Follow-up Encounter Details Date Type Department Care Team (Late st Contact Info) Description 10/14/2020 8:20 AM HAND VIOLIN MAKER Office Visit [place] [facility] ([facility]) - [facility] ENT [address] [facility] Advanced Medicine 11th [place] [address] [place] [phone] Saqib Henry MD [address] [place] [address] Substernal thyroid goiter (Primary Dx) [...] on file Legal Sex Male 3:25 PM HAND VIOLIN MAKER Gender Identity Not on file Sexual Orientation Not on file documented as of this encounter Last Filed Vital Signs Vital Sign Reading Time Taken Comments Blood Pressure - - Pulse - - Temperature - - Respiratory Rate - - Oxygen Saturation - - Inhaled Oxygen Concentration - - Weight 101.6 kg (224 lb) 10/14/2020 9:13 AM HAND VIOLIN MAKER Height - - Body Mass Index 31.24 09/10/2020 2:17 PM HAND VIOLIN MAKER documented in this encounter Progress Notes * Saqib Henry MD - 10/14/2020 8:20 AM CST [facility] Department of Otolaryngology Division of Head and Neck Surgery 10/14/2020 Abrahan Gtz 1944 [id number] Referred by: Dr. Santino Mcgarry Chief Complaint: [...] HERNIA REPAIR 1980 Hiatal Hernia repair ??? OR ABDOMEN SURGERY PROC UNLISTED Hernia Repair - [...] file Gets together: Not on file Attends latter-day service: Not on file Active member of [...] mcg tablet Take 125 mcg by mouth professor of astronomy before breakfast ??? omeprazole (PriLOSEC) 20 mg [...] managed by PCP Saqib Henry MD PhD Icer Air Conditioning Attending, Head and Neck Surgery Department of Otolaryngology [facility] [phone] (Clinical nurse Jacquie Hensley RN) Pager [phone] VIOLIN MAKER documented in this encounter Plan of Treatment Upcoming Encounters Date Type Department Care Team (Latest Contact Info) Description 10/23/2024 10:00 AM HAND VIOLIN MAKER Hospital Encounter [facility] Operating Room [address] [place] [address] [place] [address] [facility] [address] [place] [address] 10/23/2024 10:00 AM HAND VIOLIN MAKER - 10/23/2024 1:00 PM HAND VIOLIN MAKER Surgery [facility] Operating Room [address] [place] [address] [place] [address] [id number] ARTHROPLASTY TOTAL KNEE LEFT Scheduled Procedures Name Priority Associated Diagnoses Date/Ti me ARTHROPLASTY TOTAL KNEE left knee osteoarthritis 10/23/2024 10:00 AM HAND VIOLIN MAKER ESOPHAGOGASTRODUODENOSCOPY Dysphagia, unspecified type documented as [...] documented as of this encounter Care Teams Fire Engine Pump Operator Relationship Specialty [place] [address] [facility] [address], [place] [id number] PCP - General 11/12/16 03/11/22 documented as of this encounter
--- OUTSIDE RECORDS SUMMARY | 2024-10-11 03:05 | XMS_ITS | Encounter Summary ---
Author Organization [facility] Address [address] [place] [address] Care Team Providers Care Resistor Coater Name Role Phone Santino Funk MD Primary Care Provider + Encounter Details Date Type Department Care Team (Late st Contact Info) Description 11/21/2021 5:05 PM CELLARS SUPERVISOR Lab [address] [id number] Pre-procedure lab exam Social History Tobacco Use [...] on file Legal Sex Male 3:25 PM CELLARS SUPERVISOR Gender Identity Not on file Sexual Orientation Not on file documented as of this encounter Plan of Treatment Upcoming Encounters Date Type Department Care Team (Latest Contact Info) Description 10/23/2024 10:00 AM CELLARS SUPERVISOR Hospital Encounter [facility] Operating Room [address] [place] [address] [place] [address] [place] [address] [facility] [address] [place] [address] 10/23/2024 10:00 AM CELLARS SUPERVISOR - 10/23/2024 1:00 PM CELLARS SUPERVISOR Surgery [facility] Operating Room [address] [place] [address] [place] [address] [address] ARTHROPLASTY TOTAL KNEE LEFT Scheduled Procedures Name Priority Associated Diagnoses Date/Ti me ARTHROPLASTY TOTAL KNEE left knee osteoarthritis 10/23/2024 10:00 AM CELLARS SUPERVISOR ESOPHAGOGASTRODUODENOSCOPY Dysphagia, unspecified type documented as of this encounter Procedures Procedure Name Priority Date/Time Associated Diagnosis Comments COVID-19 CORONAVIRUS RNA Routine 11/21/2021 3:00 PM CELLARS SUPERVISOR Pre-procedure lab exam documented in this encounter Results * COVID-19 Coronavirus RNA Nasopharyngeal (11/21/2021 3:00 PM CELLARS SUPERVISOR) COVID-19 RNA Not Detected MARVIN FISHER Comment: Interpretive Data Synonyms for this test include: PCR and NAAT . ??Testing performed by the [facility] Molecular Infectious Disease Laboratory. The 2019-Novel Coronavirus [...] on November 14, 2020. Testing performed by: [facility], [address] [place]., [address] First COVID-19 test? Unknown CERDEE CH Comment:Testing performed by : [facility], [address] [place]., [address] Employeed in healthcare? Unknown CERNER CH Comment:Testing performed by : [facility], [address] [place]., [address] Group care resident? Unknown MARVIN Comment:Testing performed by : [facility], [address] [place]., [address] Hospitalized? No MARVIN CH Comment:Testing performed by : [facility], [address] [place]., [address] Is patient in ICU? No ANYNER CH Comment:Testing performed by : [facility], [address] [facility], [address] Symptomatic as defined by CDC? No MARVIN Comment:Testing performed by : [facility], [address] [place]., [address] Nasopharyngeal 11/21/2021 3: 00 PM CELLARS SUPERVISOR 11/21/2021 9:55 PM CELLARS SUPERVISOR Narrative MARVIN - 11/22/2021 3:28 AM CELLARS SUPERVISOR What is the reason for testing?->Screening prior to scheduled??procedure or surgery??(Batched) Giulia [facility] MICROBIOLOGY - GENERAL O RDERABLES Final Result [facility] [address] [address] Department [place] [address] documented in this encounter Visit Diagnoses Diagnosis Pre-procedure lab exam Pre-procedural laboratory examination documented in this encounter Care Teams Resistor Coater Relationship Specialty [place] [address] [address] [facility] [address] [place] [address] PCP - General 11/12/16 03/11/22 documented as of this encounter
--- OUTSIDE RECORDS SUMMARY | 2024-10-11 03:05 | XMS_ITS | Encounter Summary ---
Author Organization [facility] Address [address] [facility] [address] [place] [address] Care Team Providers Care Hotel Attendant Name Role Phone Santino Funk MD Primary Care Provider + Reason for Visit * Reason Comments Alzheimer's Disease Encounter Details Date Type Department Care Team (Late st Contact Info) Description 08/26/2020 9:00 AM AVIONICS SYSTEMS TECHNICIAN Office Visit [facility] [address] [place] [address] [address], [place] [address] Nayan [place]ajan [place], [place] [phone] [place] [address] [address], [place] [address] Late onset Alzheimer's disease without behavioral disturbance (CMS/HCC) (Primary Dx); Muscle cramp; Restless leg syndrome; Benign paroxysmal positional vertigo, unspecified laterality; Numbness and tingling of left upper and lower extremity; Essential tremor Social History Tobacco Use Types Packs/Day Years Used Date Smoking Tobacco: Former Cigarettes 1 966 - 4156 Smokeless Tobacco: Never Alcohol Use Standard Drinks/Week Comments Yes 1 (1 standard drink = 0.6 oz pur e alcohol) PHQ-2 Answer Date Recorded PHQ-2 Score 0 12/12/2018 Sex and Gender Information Value Date Recorded Sex Assigned at Not on file Legal Sex Male 3:25 PM AVIONICS SYSTEMS TECHNICIAN Gender Identity Not on file Sexual Orientation Not on file documented as of this encounter Last Filed Vital Signs Vital Sign Reading Time Taken Comments Blood Pressure 112/72 08/26/2020 9:00 AM AVIONICS SYSTEMS TECHNICIAN Pulse 72 08/26/2020 9:00 AM AVIONICS SYSTEMS TECHNICIAN Temperature - - Respiratory Rate 16 08/26/2020 9:00 AM AVIONICS SYSTEMS TECHNICIAN Oxygen Saturation - - Inhaled Oxygen Concentration - - Weight 99.7 kg (219 lb 14.5 oz) 08/26/2020 9:00 AM AVIONICS SYSTEMS TECHNICIAN Height 183.1 cm (6' 0.1 ) 08/26/2020 9:00 AM AVIONICS SYSTEMS TECHNICIAN Body Mass Index 29.74 08/26/2020 9:00 AM AVIONICS SYSTEMS TECHNICIAN documented in this encounter Ordered Prescriptions Prescription [...] Patellar Tr Tr Achilles 0 0 Coordination Anfdys-ep-wjjr, rapid alternating movements and ffea-kh-lxiq normal bilaterally without dysmetria. Gait Casual gait [...] mcg tablet, Take 125 mcg by mouth senior director of global commercial technology solutions before breakfast,Disp: , Rfl: ??? omeprazole (PriLOSEC) [...] file Gets together: Not on file Attends sabianist service: Not on file Active member of [...] Consumes alcohol : (Added by TW Conv) NICS SYSTEMS TECHNICIAN documented in this encounter Plan of Treatment Upcoming Encounters Date Type Department Care Team (Latest Contact Info) Description 10/23/2024 10:00 AM AVIONICS SYSTEMS TECHNICIAN Hospital Encounter [facility] Operating Room [id number] [place] [address] [place] [address] [address] 10/23/2024 10:00 AM AVIONICS SYSTEMS TECHNICIAN - 10/23/2024 1:00 PM AVIONICS SYSTEMS TECHNICIAN Surgery [facility] Operating Room [id number] [place] [address] [place] [address] [id number] ARTHROPLASTY TOTAL KNEE LEFT Scheduled Procedures Name Priority Associated Diagnoses Date/Ti me ARTHROPLASTY TOTAL KNEE left knee osteoarthritis 10/23/2024 10:00 AM AVIONICS SYSTEMS TECHNICIAN ESOPHAGOGASTRODUODENOSCOPY Dysphagia, unspecified type documented as [...] 1 tablet (150 mcg total) by mouth senior director of global commercial technology solutions before breakfast Dose adjustment 12/31/2019 08/26/2020 donepeziL [...] mcg tablet Take 150 mcg by mouth senior director of global commercial technology solutions before breakfast 2 HYDROcodone-acet aminophen (NORCO) 7.5-325 mg per tabletIndication s:Pain Take 1 tablet by mouth every 8 (eight) hours as needed for pain 2 pramipexole (MIRAPEX) 0.125 mg tablet 1-2 tablet nightly 1 added in this encounter Care Teams Hotel Attendant Relationship Specialty [place] [address] [address] [address] [place] [address] PCP - General 11/12/16 03/11/22 documented as of this encounter
--- OUTSIDE RECORDS SUMMARY | 2024-10-11 03:05 | XMS_ITS | Encounter Summary ---
Author Organization [facility] Address [address] [facility] [address] [place] [address] Care Team Providers Care Esl Tutor Name Role Phone Santino Funk MD Primary Care Provider + Encounter Details Date Type Department Care Team (Late st Contact Info) Description 02/14/2020 Telephone [facility] [address] [facility] [address], [place] [address] Nayan [place], [place] [phone] [place] [address] [address], [place] [address] Social History Tobacco Use Types Packs/Day Years Used Date Smoking Tobacco: Former Cigarettes 1 966 - 1693 Smokeless Tobacco: Never Alcohol Use Standard Drinks/Week Comments Yes 1 (1 standard drink = 0.6 oz pur e alcohol) PHQ-2 Answer Date Recorded PHQ-2 Score 0 12/12/2018 Sex and Gender Information Value Date Recorded Sex Assigned at Not on file Legal Sex Male 3:25 PM LABOR REPRESENTATIVE Gender Identity Not on file Sexual [...] (Latest Contact Info) Description 10/23/2024 10:00 AM LABOR REPRESENTATIVE Hospital Encounter [facility] Operating Room [address] [place] [address] [place] [address] [address] 10/23/2024 10:00 AM LABOR REPRESENTATIVE - 10/23/2024 1:00 PM LABOR REPRESENTATIVE Surgery [facility] Operating Room [address] [place] [address] [place] [address] [address] ARTHROPLASTY TOTAL KNEE LEFT Scheduled Procedures Name Priority Associated Diagnoses Date/Ti me ARTHROPLASTY TOTAL KNEE left knee osteoarthritis 10/23/2024 10:00 AM LABOR REPRESENTATIVE ESOPHAGOGASTRODUODENOSCOPY Dysphagia, unspecified type documented as of this encounter Visit Diagnoses Not on filedocumented in this encounter Care Teams Esl Tutor Relationship Specialty [place] [address] [address] PCP - General 11/12/16 03/11/22 documented as of this encounter
--- OUTSIDE RECORDS SUMMARY | 2024-10-11 03:05 | XMS_ITS | Encounter Summary ---
Author Organization [facility] Healthcare Address [address] [place] [address] Care Team Providers Care Chip Silo Tender Name Role Phone Santino Funk MD Primary Care Provider + Encounter Details Date Type Department Care Team (Late st Contact Info) Description 07/10/2020 3:00 PM CDT Lab [facility] [address] [address] [place] Funk [place] [id number] [place] [address] Discharge Disposition: Discharge to home or [...] on file Legal Sex Male 3:25 PM ASSISTANT PROFESSOR OF DIETETICS Gender Identity Not on file Sexual Orientation Not on file documented as of this encounter Discharge Disposition Disposition Code Departure Means Destination Discharge to home or self care documented in this encounter Plan of Treatment Upcoming Encounters Date Type Department Care Team (Latest Contact Info) Description 10/23/2024 10:00 AM ASSISTANT PROFESSOR OF DIETETICS Hospital Encounter [facility] Operating Room [address] [place] [address] [place] [address] [facility] [address] [place] [address] 10/23/2024 10:00 AM ASSISTANT PROFESSOR OF DIETETICS - 10/23/2024 1:00 PM ASSISTANT PROFESSOR OF DIETETICS Surgery [facility] Operating Room [address] [place] [address] [place] [address] [facility] [address] [place] [address] ARTHROPLASTY TOTAL KNEE LEFT Scheduled Procedures Name Priority Associated Diagnoses Date/Ti me ARTHROPLASTY TOTAL KNEE left knee osteoarthritis 10/23/2024 10:00 AM ASSISTANT PROFESSOR OF DIETETICS ESOPHAGOGASTRODUODENOSCOPY Dysphagia, unspecified type documented as of this encounter Visit Diagnoses Not on filedocumented in this encounter Care Teams Chip Silo Tender Relationship Specialty [place] [address] [facility] [address] [place] [address] PCP - General 11/12/16 03/11/22 documented as of this encounter
--- OUTSIDE RECORDS SUMMARY | 2024-10-11 03:05 | XMS_ITS | Encounter Summary ---
Author Organization [facility] Address [address] [facility] [address] [place] [address] Care Team Providers Care Reeling Operator Name Role Phone Santino Funk MD Primary Care Provider + Encounter Details Date Type Department Care Team (Late st Contact Info) Description 10/30/2021 Telephone [facility] [address] [address] Maura Serrano Social History Tobacco Use Types Packs/Day Years Used Date Smoking Tobacco: Former Cigarettes 1 966 - 7450 Smokeless Tobacco: Never Alcohol Use Standard Drinks/Week Comments Yes 1 (1 standard drink = 0.6 oz pur e alcohol) PHQ-2 Answer Date Recorded PHQ-2 Score 0 12/12/2018 Sex and Gender Information Value Date Recorded Sex Assigned at Not on file Legal Sex Male 3:25 PM IT COMMUNICATIONS SPECIALIST Gender Identity Not on file Sexual Orientation Not on file documented as of this encounter Miscellaneous Notes * Telephone Encounter - Maura Serrano - 10/30/2021 12:59 PM CST SPOKE WITH PT, AND ADDRESSED CONCERNS COMMUNICATIONS SPECIALIST * Telephone Encounter - Joana Suresh - 10/30/2021 9:53 AM CST Patient requesting return call [phone] COMMUNICATIONS SPECIALIST documented in this encounter Plan of Treatment Upcoming Encounters Date Type Department Care Team (Latest Contact Info) Description 10/23/2024 10:00 AM IT COMMUNICATIONS SPECIALIST Hospital Encounter [facility] Operating Room [address] [place] [address] [place] [address] [id number] 10/23/2024 10:00 AM IT COMMUNICATIONS SPECIALIST - 10/23/2024 1:00 PM IT COMMUNICATIONS SPECIALIST Surgery [facility] Operating Room [address] [place] [address] [place] [address] [address] ARTHROPLASTY TOTAL KNEE LEFT Scheduled Procedures Name Priority Associated Diagnoses Date/Ti me ARTHROPLASTY TOTAL KNEE left knee osteoarthritis 10/23/2024 10:00 AM IT COMMUNICATIONS SPECIALIST ESOPHAGOGASTRODUODENOSCOPY Dysphagia, unspecified type documented as of this encounter Visit Diagnoses Not on filedocumented in this encounter Care Teams Reeling Operator Relationship Specialty [place] [address] [facility] [place] [address] PCP - General 11/12/16 03/11/22 documented as of this encounter
--- OUTSIDE RECORDS SUMMARY | 2024-10-11 03:05 | XMS_ITS | Encounter Summary ---
Author Organization [facility] Address [address] [facility] [address] [place] [address] Care Team Providers Care Sapphire Stylus Grinder Name Role Phone Santino Funk MD Primary Care Provider + Reason for Visit * Reason Onset Date Comments prescription request Donepezil 04/04/2020 Encounter Details Date Type Department Care Team (Late st Contact Info) Description 04/04/2020 Telephone [facility] [address] [facility] [address], [place] [address] [place] [address] [facility] [address], [place] [address] prescription request Donepezil Social History Tobacco Use Types Packs/Day Years Used Date Smoking Tobacco: Former Cigarettes 1 966 - 5407 Smokeless Tobacco: Never Alcohol Use Standard Drinks/Week Comments Yes 1 (1 standard drink = 0.6 oz pur e alcohol) PHQ-2 Answer Date Recorded PHQ-2 Score 0 12/12/2018 Sex and Gender Information Value Date Recorded Sex Assigned at Not on file Legal Sex Male 3:25 PM RESISTOR COATER Gender Identity Not on file Sexual Orientation [...] (Latest Contact Info) Description 10/23/2024 10:00 AM RESISTOR COATER Hospital Encounter [facility] Operating Room [address] [place] [address] [place] [address] [address] [address] 10/23/2024 10:00 AM RESISTOR COATER - 10/23/2024 1:00 PM RESISTOR COATER Surgery [facility] Operating Room [address] [place] [address] [place] [address] [address] ARTHROPLASTY TOTAL KNEE LEFT Scheduled Procedures Name Priority Associated Diagnoses Date/Ti me ARTHROPLASTY TOTAL KNEE left knee osteoarthritis 10/23/2024 10:00 AM RESISTOR COATER ESOPHAGOGASTRODUODENOSCOPY Dysphagia, unspecified type documented as of this encounter Visit Diagnoses Diagnosis 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)- Primary documented in this encounter Discontinued Medications Medication Sig Discontinue Reason Start Date End Da te donepeziL (ARICEPT) 5 mg tablet Take 1 tablet (5 mg total) by mouth nightly Dose adjustment 02/07/2020 04/04/2020 documented as of this encounter Care Teams Sapphire Stylus Grinder Relationship Specialty [place] [address] [address] PCP - General 11/12/16 03/11/22 documented as of this encounter
--- OUTSIDE RECORDS SUMMARY | 2024-10-11 03:05 | XMS_ITS | Encounter Summary ---
Author Organization [facility] Address [address] [facility] [address] [place] [address] Care Team Providers Care Route Sales Driver Name Role Phone Santino Funk MD Primary Care Provider + Reason for Visit * Reason Comments Alzheimer's Disease Encounter Details Date Type Department Care Team (Late st Contact Info) Description 02/21/2020 10:30 AM CDT Office Visit [facility] [address] [facility] [address], [place] [address] [place], [place] [phone] [place] [address] [address], [place] [address] Late onset Alzheimer's disease without behavioral disturbance (CMS/HCC) (Primary Dx); Benign paroxysmal positional vertigo, unspecified laterality; Left sided numbness Social History Tobacco Use Types Packs/Day Years Used Date Smoking Tobacco: Former Cigarettes 1 966 - 6131 Smokeless Tobacco: Never Alcohol Use Standard Drinks/Week Comments Yes 1 (1 standard drink = 0.6 oz pur e alcohol) PHQ-2 Answer Date Recorded PHQ-2 Score 0 12/12/2018 Sex and Gender Information Value Date Recorded Sex Assigned at Not on file Legal Sex Male 3:25 PM RECYCLE COORDINATOR Gender Identity Not on file Sexual [...] to your pharmacy. On you tube search [place] doctor treat dizziness she has exercised for [...] Patellar 1+ 1+ Achilles 0 0 Coordination Wboiwd-wi-wsba, rapid alternating movements and fyxe-ye-trrk normal bilaterally without dysmetria. Gait Slow and [...] 1 tablet (150 mcg total) by mouth negative turner before breakfast, Disp: 60 tablet, Rfl: 1 [...] file Gets together: Not on file Attends voodoo service: Not on file Active member of [...] (Latest Contact Info) Description 10/23/2024 10:00 AM RECYCLE COORDINATOR Hospital Encounter [facility] Operating Room [address] [place] [address] [place] [address] [facility] [address] 10/23/2024 10:00 AM RECYCLE COORDINATOR - 10/23/2024 1:00 PM RECYCLE COORDINATOR Surgery [facility] Operating Room [address] [place] [address] [place] [address] [address] ARTHROPLASTY TOTAL KNEE LEFT Scheduled Procedures Name Priority Associated Diagnoses Date/Ti me ARTHROPLASTY TOTAL KNEE left knee osteoarthritis 10/23/2024 10:00 AM RECYCLE COORDINATOR ESOPHAGOGASTRODUODENOSCOPY Dysphagia, unspecified type documented as of this encounter Visit Diagnoses Diagnosis 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)- Primary Benign paroxysmal positional vertigo, unspecified laterality Left sided numbness documented in this encounter Care Teams Route Sales Driver Relationship Specialty [place] [address] [facility] [address] PCP - General 11/12/16 03/11/22 documented as of this encounter
--- OUTSIDE RECORDS SUMMARY | 2024-10-11 03:05 | XMS_ITS | Encounter Summary ---
Author Organization [facility] Address [address] [facility] [address] [place] [address] Care Team Providers Care Public Transit Bus Driver Name Role Phone Santino Funk MD Primary Care Provider + Reason for Visit * Reason Onset Date Comments Med Refill 10/07/2020 Donepezil Encounter Details Date Type Department Care Team (Late st Contact Info) Description 10/07/2020 Telephone [facility] [address] [facility] [address] [place] [address] [place] [address] [facility] [address] [address] Med Refill (Donepezil) Social History [...] file Legal Sex Male 3:25 PM MACHINE TACK PULLER Gender Identity Not on file Sexual [...] on: 10/07/2020 02:53 PM Modules accepted: Orders INE TACK PULLER * Telephone Encounter - Lawrence Lozada MA - 10/07/2020 2:53 PM CST rx sent INE TACK PULLER * Telephone Encounter - Clay Fajardo - 10/07/2020 11:19 AM CST LV 11-16-20 [facility] [place] 5-18-21 [facility] Medication Name: donepeziL (ARICEPT) 10 mg Dosage: 10 mg Rx Type day: Pharmacy: [facility] INE TACK PULLER documented in this encounter Plan of Treatment Upcoming Encounters Date Type Department Care Team (Latest Contact Info) Description 10/23/2024 10:00 AM MACHINE TACK PULLER Hospital Encounter [facility] Operating Room [address] [place] [address] [place] [address] [address] 10/23/2024 10:00 AM MACHINE TACK PULLER - 10/23/2024 1:00 PM MACHINE TACK PULLER Surgery [facility] Operating Room [address] [place] [address] [place] [address] [address] [address] ARTHROPLASTY TOTAL KNEE LEFT Scheduled Procedures Name Priority Associated Diagnoses Date/Ti me ARTHROPLASTY TOTAL KNEE left knee osteoarthritis 10/23/2024 10:00 AM MACHINE TACK PULLER ESOPHAGOGASTRODUODENOSCOPY Dysphagia, unspecified type documented as [...] documented as of this encounter Care Teams Public Transit Bus Driver Relationship Specialty [place] [address] [address] PCP - General 11/12/16 03/11/22 documented as of this encounter
--- OUTSIDE RECORDS SUMMARY | 2024-10-11 03:05 | XMS_ITS | Encounter Summary ---
Author Organization [facility] Healthcare Address [address] [place] [address] Care Team Providers Care Clip On Sunglasses Assembler Name Role Phone Santino Funk MD Primary Care Provider + Encounter Details Date Type Department Care Team (Late st Contact Info) Description 11/24/2021 8:30 AM RETURN TO VENDOR - 11/24/2021 10:30 AM [facility] Surgery [facility] Operating Room [address] [place] [address] George Sepulveda MD [address] [place] [id number] ARTHROPLASTY TOTAL RIGHT KNEE, LEFT KNEE INJECTION [...] on file Legal Sex Male 3:25 PM RETURN TO VENDOR Gender Identity Not on file Sexual Orientation Not on file documented as of this encounter Last Filed Vital Signs Vital Sign Reading Time Taken Comments Blood Pressure 99/54 11/24/2021 10:30 AM RETURN TO VENDOR Pulse 59 11/24/2021 10:30 AM RETURN TO VENDOR Temperature 36.1 ??C (96.9 ??F) 11/24/2021 10:[address] Respiratory Rate 14 11/24/2021 10:30 AM RETURN TO VENDOR Oxygen Saturation 98% 11/24/2021 10:30 AM RETURN TO VENDOR Inhaled Oxygen Concentration - - Weight 94.6 kg (208 lb 8 oz) 11/24/2021 7:32 AM RETURN TO VENDOR Height 180.3 cm (5' 11 ) 11/24/2021 7:32 AM RETURN TO VENDOR Body Mass Index 29.29 11/24/2021 7:32 AM RETURN TO VENDOR documented in this encounter Discharge Summaries * Jossie Montalvo PA - 11/26/2021 3:12 PM CST Inpatient Discharge Summary BRIEF OVERVIEW Admitting Provider: George Sepulveda MD Discharge Provider: George Sepulveda MD Primary Care Physician at Discharge: Santino Funk MD [phone] Admission Date: 11/24/2021 Discharge Date: 11/26/2021 Admission Location: [facility] Problems/Diagnoses: Principal Problem: Primary osteoarthritis of both [...] of walker?: Yes DME services provided by: [facility] Discharge Medications: Current Medications TAKE these [...] 03/12/2022 10:30 AM Nayan Mahajan II, MD [facility] Cosigned by George Sepulveda MD at 11/26/2021 4:08 PM RETURN TO VENDOR RN TO VENDOR RN TO VENDOR documented in this encounter Discharge Instructions * Appointments* Nalini Dunham RN - 11/26/2021 3:04 PM RETURN TO VENDOR Home Health has been set up with [facility] [phone]. They will be contacting you regarding initial visit. RN TO VENDOR documented in this encounter Medications at Time [...] this encounter Progress Notes * Michelle Carrasco, TECHNICAL DESIGNER - 11/26/2021 1:10 PM CST Physical Therapy [...] Isabella Moya, PT at 11/27/2021 8:44 AM RETURN TO VENDOR RN TO VENDOR RN TO VENDOR * Ap Pang COTA - 11/26/2021 10:34 AM CST Occupational Therapy NOTE / SESSION TYPE: DAILY PROGRESS / TREATMENT Patient's Name: Gunjan Gtz Jr. Age / Sex: 76 y.o. / male Room: [place] [address] : 1945 Date of service: 11/26/21 TIME [...] ulcer Peptic ulcer disease ??? Seizures (CMS/HCC) ([facility]) 1998 last seizure in 1997 ??? SOB (shortness of breath) on exertion ??? Subchondral insufficiency fracture of condyle of left femur (CMS/HCC) ([facility]) ??? Vertigo ??? Visual disturbance [...] session: Yes Completed patient handoff and notified COLLECTIONS MANAGER / RN, name: Meagan, of patient's location and functional status upon completion of session Cognitive / Perceptual: Followed all commands without difficulty. Mobility / Transfers: Bed Mobility: SPV supine to/from sit using gait belt as leg phonograph needle tip maker to assist with RLE Transfer(s): CGA sit to/from stand from EOB with wheeled walker and MIN verbal cues for hand placement CAR TRANSFER LOCATION: CAR SIMULATOR SET AT HEIGHT OF 20 INCHES PER PATIENT'S HOME VEHICLE OVERALL ASSIST LEVEL: INCIDENTAL TOUCHING ASSISTANCE DEVICE: WHEELED WALKER ADDITIONAL DOCUMENTATION: using leg phonograph needle tip maker to assist with RLE with increased time Patient verbalized good understanding of shower transfer technique to shower bench with DME education and pricing options at his local [facility]. Did not attempt transfer at this time [...] Winifred Boyce, OT at 11/27/2021 3:03 PM RETURN TO VENDOR RN TO VENDOR RN TO VENDOR * Michelle Carrasco, TECHNICAL DESIGNER - 11/26/2021 9:10 AM CST Physical Therapy [...] Isabella Moya, PT at 11/27/2021 8:46 AM RETURN TO VENDOR RN TO VENDOR RN TO VENDOR RN TO VENDOR * Norma Park PA - 11/26/2021 8:54 [...] He would like discharge medications sent to [facility] pharmacy in [place]. Dressing care reviewed. Patient denies any further questions at this time. LORI Castro 11/26/2021 8:58 AM Cosigned by George Sepulveda MD at 11/26/2021 12:20 PM RETURN TO VENDOR RN TO VENDOR RN TO VENDOR * Nalini Dunham RN - 11/25/2021 3:24 PM CST CM Initial Assessment Interview Note Information Obtained From: Patient (11/25/21 1228) Admission Source: Elective surgery Impression: Osteoarthritis of the right and left knee. S/p arthroplasty total right knee, left kneeinjection Plan Includes: PT/OT evaluation, pain management, labs Primary Source of Transportation: Drives self Health Insurance Coverage: BCBS OOS/Medicare A&B Prescription Coverage: yes Pharmacy: [facility] [address] [facility] [address] Primary Care Provider: Santino Funk MD Prior to Admission: Primary Caregiver: Self Support System: Spouse/Significant Other Support system contact info (name, phone, availablity): Alon Gtz () [phone] Home Care Services: No Durable Medical Equipment: Cane (single prong), Walker (wheeled), Shower chair Living Arrangements: Spouse/significant other Type of Residence: Private residence Steps in home? : Yes, Outside of home (11/25/211227) Potential discharge needs include: Home Health: Physical therapy, Occupational therapy (11/25/211227) Dialysis: n/a Behavioral Health Services: no Patient expects to be Discharged to: Private residence, (11/25/211227) Additional Information: CURRICULUM MANAGER and SDOH completed with patient at bedside. [...] work consult entered. Patient is agreeable to [facility] HH with SOC on 11/27. CMwill [...] Collaboration with patient, MD, direct care nurse, Ward Service Supervisor, Nurse Coordinator and other members of the health care team to assure needed interventions completed. 2. Return patient to optimal level of self-care post discharge. 3. Graduate Studies Dean will follow for Discharge Planning - interventions as needed 4. Anticipated level of care at discharge 5. Planned Discharge Disposition Nalini Dunham RN, BSN - [phone] RN TO VENDOR * Isis Marie Julissa - 11/25/2021 1:31 PM CST Physical Therapy PT PROGRESS NOTE Gunjan Ulisses Shahid 76 y.o. 1945 Past Medical History: Diagnosis Date ??? Acute gastric ulcer without hemorrhage or perforation Ulcer, gastric, acute - (Added by TW Conv) ??? Alzheimer's dementia ([facility]) ??? Asthma ??? Cataract ??? [...] ulcer Peptic ulcer disease ??? Seizures (CMS/HCC) ([facility]) 1998 last seizure in 1997 ??? SOB (shortness of breath) on exertion ??? Subchondral insufficiency fracture of condyle of left femur (CMS/HCC) ([facility]) ??? Vertigo ??? Visual disturbance hx of double vision, corrective lenses Past Surgical History: Procedure Laterality Date ??? CATARACT EXTRACTION, BILATERAL Bilateral 2017 ??? HERNIA REPAIR 1980 Hiatal Hernia repair ??? KNEE ARTHROSCOPY Bilateral ??? THYROIDECTOMY 12/27/2019 Patient Active Problem List Diagnosis ??? Primary osteoarthritis of both knees ??? Subchondral insufficiency fracture of condyle of left femur (CMS/HCC) ([facility]) ??? Closed fracture of left [...] Isabella Moya, PT at 11/25/2021 4:45 PM RETURN TO VENDOR RN TO VENDOR RN TO VENDOR RN TO VENDOR * Peg Dunbar, OT - 11/25/2021 9:22 AM CST Occupational Therapy NOTE / SESSION TYPE: Initial Evaluation Patient Name: Gunjan Gtz Date of : 1945 Age / Sex: 76 y.o. / male Room: [facility] [address] Admit Date: 11/24/2021 Date of Service: 11/25/21 [...] ulcer Peptic ulcer disease ??? Seizures (CMS/HCC) ([facility]) 1998 last seizure in 1997 ??? SOB (shortness of breath) on exertion ??? Subchondral insufficiency fracture of condyle of left femur (CMS/HCC) ([facility]) ??? Vertigo ??? 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 Social roles / Hobbies: mostly works Patient / Family goal(s): none stated OBJECTIVE: Appearance: Presentation upon OT arrival: Patient Supine Presentation upon OT departure: Patient Sitting in bedside recliner Bed / chair alarm in place and activated upon OT departure: Yes Call light within arms reach of patient at end of session: Yes Completed patient handoff and notified Physical Therapist / Physical Therapist Cylinder Press Operator, name: Shan, of patient's location and functional status upon completion of session Cognitive / Perceptual Assessment: Alert and awake, oriented UE ROM / Strength / Coordination: (A)ROM - Right: wfl Strength - Right: 4/5 (A)ROM - Left: wfl Strength - Left: 4/5 Hand Dominance: Right Pot Operator Strength (Right) good Pot Operator Strength (Left): good Right Serial Opposition: Intact Left Serial Opposition: Intact Balance: Static sitting balance: good Dynamic sitting balance: good Static standing balance: good- supported Mobility / Transfers: Bed mobility (Components & Assistance): supine to sit with min assist Transfer(s): [facility] with cg assist using w/w [...] (from Occupational Therapy) Active Problems Problem: OT [facility] Start Date: 11/25/21 Goal Start Date Expected End Date End Date OT [facility] - Mis 1 11/25/21 12/02/21 -- Goal Details: Patient will complete bathing with supervision one time. Goal Start Date Expected End Date End Date OT [facility] - Mis 2 11/25/21 12/02/21 -- Goal Details: Patient will complete toilet transfer with supervision one time. Goal Start Date Expected End Date End Date OT [facility] - [facility] 3 11/25/21 12/02/21 -- Goal Details: Patient [...] the discharge summary Peg Dunbar OT 11/25/21 RN TO VENDOR * Jossie Montalvo PA - 11/25/2021 8:51 [...] George Sepulveda MD at 11/25/2021 9:17 AM RETURN TO VENDOR RN TO VENDOR RN TO VENDOR * Isis Marie - 11/25/2021 8:12 AM [...] of left femur (CMS/HCC) ([facility]) ??? Closed fracture of left [...] (Added by TW Conv) ??? Alzheimer's dementia ([facility]) ??? Asthma ??? Cataract ??? [...] ulcer Peptic ulcer disease ??? Seizures (CMS/HCC) ([facility]) 1998 last seizure in 1997 ??? SOB (shortness of breath) on exertion ??? Subchondral insufficiency fracture of condyle of left femur (CMS/HCC) ([facility]) ??? Vertigo ??? Visual disturbance [...] . Patient is driving and working at [employer]. EQUIPMENT OWNED: wheeled walker, cane, shower chair [...] consider this the discharge summary. Isis Marie, [facility] 11/25/21 11:15 AM Cosigned by Isabella Moya, PT at 11/25/2021 4:30 PM RETURN TO VENDOR RN TO VENDOR RN TO VENDOR * Becky Moon, PT - 11/24/2021 1:10 PM CST Physical Therapy Med-cancel - Per RN patient just given medicine for abdominal cramps. In addition, patient with increased rigor, and just received from PACU. Will attempt physical therapy evaluation at a later time as schedule allows. Becky Moon, PT 11/24/21 1:11 PM RN TO VENDOR documented in this encounter H&P Notes * [...] is actually scheduled for knee replacement at [facility] at the end of this [...] diseases of skin or subcutaneous tissue, Seizures ([facility]) ([facility]) (1997), SOB (shortness of breath) on exertion, Subchondral insufficiency fracture of condyle of left femur([facility]) ([facility]), and Visual disturbance.He has no past [...] knees, with subchondral sclerosis, subchondral cysts and tnns-ap-lmhe contact in the medial compartment. Patellofemoral changes [...] will be at the time of surgery. RN TO VENDOR documented in this encounter Consult Notes * [...] in the office. Job ID/VF Job ID: [id number] RN TO VENDOR * Jessie Andrade, AGRICULTURAL REAL ESTATE AGENT - 11/25/2021 9:13 AM CSTAssociated Order(s): IP [...] ulcer Peptic ulcer disease ??? Seizures (CMS/HCC) ([facility]) 1998 last seizure in 1997 ??? SOB (shortness of breath) on exertion ??? Subchondral insufficiency fracture of condyle of left femur (CMS/HCC) ([facility]) ??? Vertigo ??? Visual disturbance [...] Principal Problem: Primary osteoarthritis of both knees uGnjan Gtz is a 76 y.o. male with [...] if you have any questions. SEAN Dahl [facility] [employer] Department of Surgery, Division of Urology [phone] 11/25/2021 9:14 AM RN TO VENDOR RN TO VENDOR RN TO VENDOR documented in this encounter Nursing Notes * Meagan Alonso RN - 11/26/2021 3:37 PM CST Patient discharged to home via private vehicle accompanied by spouse. Discharge instructions reviewed with patient and/or home furnishings sales representative. Mobile pharmacy medications and/or prescriptions provided. Belongings/home medications returned. RN TO VENDOR * Meagan Alonso RN - 11/26/2021 9:18 [...] in flowsheets. Plan of care discussed with patient/home furnishings sales representative, including as it relates to Principal Problem: Primary osteoarthritis of both knees Patient progressing. Clinical goals for the shift: Pain management, Discharge home. Education provided includes Discharge Planning, Fall Prevention and Pain Management. Patient and/or home furnishings sales representative Verbalizes understanding. Will continue to monitor. RN TO VENDOR documented in this encounter Miscellaneous Notes * Plan of Care - Nalini Dunham RN - 11/26/2021 2:59 PM CST Home Care Coordination: home health arranged with [facility] per pt choice. Entered onAVS, okay to d/c from CM standpoint. No further f/u from at this time. LUCIO spoke with Patricia at [facility]. They will be contacting patient with SOC, patient will be seen Friday 12/01 unless there is an opening. Nalini Dunham RN, BSN - [phone] RN TO VENDOR * Plan of Care - Nalini Dunham RN - 11/26/2021 2:16 PM CST Patient has been accepted by [facility] in [place] for HH. Documentation and HH order faxed to Patricia (ph. [phone]/fax [phone]). Therapist will review for completion. Nalini Dunham RN, BSN - CM [phone] RN TO VENDOR * Plan of Care - Nalini Dnuham RN - 11/26/2021 12:01 PM CST LUCIO was informed by Maisha Gimenez with [facility] HH that patient's primary insurance is a high deductible plan and he has not met any of his deductible or out of pocket and they do not accept his secondary insurance, [employer]. LUCIO spoke with patient who thought about paying for [facility] services but then checked with his who is recovering from knee surgery and he would like to see if [facility] in [facility] would be able to see him at home. LUCIO spoke with Patricia ([phone]) and she will check with the HHtherapist to see if patient is in the coverage area and call me back. Nalini Dunham RN, BSN - [phone] RN TO VENDOR * Plan of Care - Ap Pang COTA - 11/26/2021 11:44 AM CST Problem: OT Misc Goal: OT STG - Misc 3 Description: Patient will complete car/shower transfer with supervision one time Outcome: Progressing Note: LOCATION: CAR SIMULATOR SET AT HEIGHT OF 20 INCHES PER PATIENT'S HOME VEHICLE OVERALL ASSIST LEVEL: INCIDENTAL TOUCHING ASSISTANCE DEVICE: WHEELED WALKER ADDITIONAL DOCUMENTATION: using leg phonograph needle tip maker to assist with RLE with increased time Patient verbalized good understanding of shower transfer technique to shower bench with DME education and pricing options at his local [facility]. Did not attempt transfer at this time due to pain. ANGI Rodriguez 11/26/21 11:45 AM RN TO VENDOR * Plan of Sariah - Patricia Chen [...] for the Shift: safety and comfort Summary: RN TO VENDOR * Plan of Sariah - Maxime Carter LMSW - 11/25/2021 2:17 PM CST FINANCIAL PROJECT MANAGER attempted to speak to pt to provide advanced directive information. FINANCIAL PROJECT MANAGER was unable to speak to him. FINANCIAL PROJECT MANAGER provided advanced directive information in his chart. FINANCIAL PROJECT MANAGER will continue to follow as needed. Maxime Carter LMSW Ward Service Supervisor Case Management, 10th Floor 11/25/21 2:17 PM RN TO VENDOR * Plan of Care - Gem Gimenez RN - 11/25/2021 1:22 PM CST Home Health Consult received patient accepted to [facility] home care. ADD 11/26 with SOC 11/27 for PT/OT. LUCIO Pearce notified. RN TO VENDOR * Plan of Care - Peter Negron [...] I will continue to monitor the patient RN TO VENDOR * Significant Event - Kelin Mendiola NP - 11/24/2021 9:00 PM CST Significant Event Hospitalist Service Hospitalist service called and accepted for medical consult. On further review of the chart it is noted that the patient's PCP is Dr. Santino Funk who see's his own patients. Nursing on the 10th floor instructed to call Dr. Funk for consult. RN TO VENDOR * Op Note - George Sepulveda MD - 11/24/2021 8:30 AM CST Operative Note Name: Gunjan Gtz Jr. : 1945 AGE: 76 y.o. DATE: 11/24/2021 SURGEON: George Sepulveda MD CARD WRITER HAND: CHECO Sears, CHECO Jones PREOPERATIVE DIAGNOSIS: 1. [...] with a #1 Vicryl stitch in interrupted oxywck-es-fczfa fashion. The subcutaneous tissue was closed with 2-0 Vicryl and skin was closed with a staple closure. Sterile dressings were then applied. The patient then awoken from anesthesiaand transferred to the PACU in stable condition. All sponge and needle counts were correct. speech language assistant Norma Park helped to position the patient pre-operatively, assisted in opening, held retractors during the case and closed the subcutaneous tissue and skin at the conclusion. She then assisted in the transfer of the patient to the post-operative bed and transport to PACU. Due to the complexity of the case, the skill set of an orthopedic physician medical receptionist medical assistant was necessary throughout the case. She effectively limited the operative time and significantly facilitated a successful surgical procedure. George Sepulveda MD 11/24/2021 9:37 AM RN TO VENDOR RN TO VENDOR documented in this encounter Plan of Treatment Upcoming Encounters Date Type Department Care Team (Latest Contact Info) Description 10/23/2024 10:00 AM RETURN TO VENDOR Hospital Encounter [facility] Operating Room [address] [place] [id number] [place] [address] [address] 10/23/2024 10:00 AM RETURN TO VENDOR - 10/23/2024 1:00 PM RETURN TO VENDOR Surgery [facility] Operating Room [address] [place] [address] [place] [address] [address] ARTHROPLASTY TOTAL KNEE LEFT Scheduled Procedures Name Priority Associated Diagnoses Date/Ti me ARTHROPLASTY TOTAL KNEE left knee osteoarthritis 10/23/2024 10:00 AM RETURN TO VENDOR ESOPHAGOGASTRODUODENOSCOPY Dysphagia, unspecified type documented as of this encounter Procedures Procedure Name Priority Date/Time Associated Diagnosis Comments EGFR Routine 11/25/2021 10:15 AM RETURN TO VENDOR DIFFERENTIAL AUTO Routine 11/25/2021 10: 15 AM RETURN TO VENDOR CBC WITH AUTO DIFFERENTIAL Routine 11/25/2021 10:15 AM RETURN TO VENDOR BASIC METABOLIC PANEL Routine 11/25/2021 10:15 AM RETURN TO VENDOR SURGICAL PATHOLOGY Routine 11/24/2021 12 :43 PM RETURN TO VENDOR Primary osteoarthritis of both knees XR KNEE RIGHT 1 OR 2 VIEWS IP Routine 11/24/2021 10:40 AM RETURN TO VENDOR ARTHROPLASTY TOTAL KNEE 11/24/2021 8:23 AM RETURN TO VENDOR Primary osteoarthritis of both knees B CHECK SAMPLE STAT 11/24/2021 7:57 AM RETURN TO VENDOR documented in this encounter Results * eGFR (11/25/2021 10:15 AM RETURN TO VENDOR) eGFR 64 mL/min/1. 73 m2 [facility] FISHER [...] reviewed 2021. Blood 11/25/2021 10:1 5 AM RETURN TO VENDOR 11/25/2021 10:23 AM RETURN TO VENDOR us George Sepulveda MD LAB BLOOD ORDERABLES Krystina solitario Result [facility] [address] Department [place] [address] * (ABNORMAL) Differential, auto (11/25/2021 10:15 AM RETURN TO VENDOR) Neutrophil abs 9.2(H) 1.7 - 6.5 K/cumm [facility] Imm gran abs 0.1 0.0 - 0.1 K/cumm [facility] Lymphocyte abs 1.7 0.8 - 3.3 K/cumm [facility] Monocyte abs 1.3(H) 0.2 - 0.8 K/cumm [facility] Eosinophil abs 0.0 0.0 - 0.5 K/cumm [facility] Basophil abs 0.0 0.0 - 0.1 K/cumm [facility] Neutrophil pct 74.7 % [facility] Comment: Interpretive Data Percent cell count reference ranges are not reported, since discordance with absolute values may lead to misinterpretation of CBC data. Current Interpretive Data was last revised on 2018. Imm gran pct 0.5 % [facility] Comment: Interpretive Data Percent cell count reference ranges are not reported, since discordance with absolute values may lead to misinterpretation of CBC data. Current Interpretive Data was last revised on 2018. Lymphocyte pct 13.7 % [facility] Comment: Interpretive Data Percent cell count reference ranges are not reported, since discordance with absolute values may lead to misinterpretation of CBC data. Current Interpretive Data was last revised on 2018. Monocyte pct 10.7 % [facility] Comment: Interpretive Data Percent cell count reference ranges are not reported, since discordance with absolute values may lead to misinterpretation of CBC data. Current Interpretive Data was last revised on 2018. Eosinophil pct 0.2 % [facility] Comment: Interpretive Data Percent cell [...] on 2018. Blood 11/25/2021 10:1 5 AM RETURN TO VENDOR 11/25/2021 10:23 AM RETURN TO VENDOR George Sepulveda MD LAB BLOOD ORDERABLES Krystina l Result [facility] [address] [place] [address] * (ABNORMAL) CBC with auto differential (11/25/2021 10:15 AM RETURN TO VENDOR) WBC 12.3(H) 3.8 - 9.9 K/cumm [facility] Hgb 13.8 13.0 - 17.5 g/dL [facility] Hct 41.2 38.9 - 50.3 % [facility] Plt 194 150 - 400 K/cumm [facility] MPV 10.2 9.1 - 12.3 fL [...] [facility] Blood 11/25/2021 10:1 5 AM RETURN TO VENDOR 11/25/2021 10:23 AM RETURN TO VENDOR George Sepulveda MD LAB BLOOD ORDERABLES Krystina l Result Performing Organization Address City/[facility]/ZIP Co de Phone Number [facility] [address] Department [place] [address] * Basic metabolic panel (11/25/2021 10:15 AM RETURN TO VENDOR) Sodium 140 135 - 145 mmol/L [facility] Potassium, pl 4.4 3.3 - 4.9 mmol/L [facility] Chloride 105 97 - 110 mmol/L [facility] CO2 24 22 - 32 mmol/L [facility] Anion gap 11 2 - 15 mmol/L [facility] BUN 18 8 - 25 mg/dL [facility] Creatinine 1.18 0.80 - 1.30 mg/dL [facility] Glucose 144 70 - 199 mg/dL [facility] Comment: Interpretive Data Fasting glucose [...] 2017. Calcium 8.6 8.5 - 10.3 mg/dL [facility] Blood 11/25/2021 10:1 5 AM RETURN TO VENDOR 11/25/2021 10:23 AM RETURN TO VENDOR George Sepulveda MD LAB BLOOD ORDERABLES Krystina l Result Performing Organization Address City/State/[facility] Co de Phone Number [address] Department [place] [address] * Surgical pathology (11/24/2021 12:43 PM RETURN TO VENDOR) Tissue (Bone Fragment(s),) 11/24/2021 9:00 AM RETURN TO VENDOR Narrative PATHOLOGY - 11/26/2021 2:46 PM RETURN TO VENDOR EPIC results best viewed via link to PDF [facility] Department of Pathology [address] [place] [address] Note to Patients: This report may [...] Report Patient Name: ??GUNJAN GTZ JR Address: ??[address] [place] [address], ??[place], [place] ??[address] Gender: ??M : ??1945 (Age: 76) Service: ??Laboratory Location: ??[address] Hospital #: ??[id number] Patient Type: ??[facility] Accession # ?[id number] Taken: ??11/24/2021 Received: ??11/24/2021 Accessioned: ??11/24/2021 Reported: [...] determined by the Surgical Pathology Department at [facility] as part of an ongoing quality control director program and in compliance with federally mandated [...] characteristics determined by the Surgical Pathology Department [facility]. ??It has not been cleared or approved by the U. S. Food and Drug Administration. George Sepulveda MD LAB PATHOLOGY ORDERABLES Final Result Performing Organization Address City/State/[facility] Co de Phone Number PATHOLOGY [address] [place] [address] * XR Knee Right 1 or 2 View (11/24/2021 10:40 AM RETURN TO VENDOR) Anatomical Region Laterality Modality Lower Extremities, Knee Right Computed Radiography 11/24/2021 10:5 9 AM RETURN TO VENDOR Impressions 11/24/2021 10:59 AM RETURN TO VENDOR Right total arthroplasty with components in good position. Electronically signed by: Cat Sandoval M.D. Narrative 11/24/2021 10:59 AM RETURN TO VENDOR EXAMINATION: XR KNEE RIGHT 1 OR 2 [...] esult * Check Sample (11/24/2021 7:57 AM RETURN TO VENDOR) ABO Rh O Negative [facility] OTHER 11/24/2021 7:57 AM RETURN TO VENDOR 11/24/2021 7:57 AM RETURN TO VENDOR George Sepulveda MD LAB BLOOD ORDERABLES Krystina l Result MARVIN [address] [address] Department of Laboratories [place] [phone] documented in this encounter Visit Diagnoses Diagnosis [...] at 0856, Intra-Op Given 11/24/2021 8:57 AM RETURN TO VENDOR 4 mL Surgical Site Given 11/24/2021 8:56 AM RETURN TO VENDOR 30 mL Blue rgical Site cholecalciferol (VITAMIN D-3) tablet 2,000 Units 2,000 Units, oral, Nightly, First dose on Wed11/24/21 at 2100 Given 11/25/2021 9:55 PM RETURN TO VENDOR 2,000 Units Given 11/24/2021 9:51 PM RETURN TO VENDOR 2,000 Units donepeziL (ARICEPT) tablet 10 mg 10 mg, oral, Nightly, First dose on Wed11/24/21 at 2100 Given 11/25/2021 9:54 PM RETURN TO VENDOR 10 mg Given 11/24/2021 9:49 PM RETURN TO VENDOR 10 mg famotidine (PEPCID) tablet 20 mg 20 mg, oral, 2 times daily, First dose on Wed11/24/21 at 1230, Indications: HeartburnIndications:Heartburn Given 11/26/2021 8:18 AM RETURN TO VENDOR 20 mg Given 11/25/2021 9:54 PM RETURN TO VENDOR 20 mg Given 11/25/2021 8:54 AM RETURN TO VENDOR 20 mg ketorolac (TORADOL) 15 mg/mL injection 15 mg 15 mg, intravenous, Every 6 hours PRN, 2nd line for pain, Starting on Wed11/24/21 at 1149, For 5 days, For Adult IV push, administer over 15 seconds Given 11/26/2021 10:50 AM RETURN TO VENDOR 15 mg Given 11/25/2021 5:18 PM RETURN TO VENDOR 15 mg Given 11/25/2021 8:54 AM RETURN TO VENDOR 15 mg Lactated Ringer's (LR) infusion 30 mL/hr, intravenous, Continuous, Starting on Wed11/24/21 at 0745 New Bag 11/24/2021 11:01 AM RETURN TO VENDOR 30 mL/hr 30 mL/hr Restarted 11/24/2021 10:09 AM RETURN TO VENDOR New Bag 11/24/2021 8:24 AM RETURN TO VENDOR 50 mL/hr levothyroxine (SYNTHROID) tablet 150 mcg 150 mcg, oral, Daily (early AM), First dose on Wed11/25/21 at 0600, Administer on an empty stomach, preferably 30 minutes before breakfast. Take 4 hours apart from antacids, iron and calcium products. Given 11/26/2021 6:05 AM RETURN TO VENDOR 150 mcg Given 11/25/2021 6:17 AM RETURN TO VENDOR 150 mcg magnesium oxide (MAG-OX) tablet 200 mg 200 mg, oral, Nightly, First dose on Wed11/24/21 at 2100, 1 tablet = Magnesium oxide 400 mg = 241.3 mg elemental magnesium, Indications: hypomagnesemiaIndications:hypomagnesemia Given 11/25/2021 9:52 PM RETURN TO VENDOR 200 mg Given 11/24/2021 9:51 PM RETURN TO VENDOR 200 mg methylPREDNISolone acetate (DEPO-medrol) injection As needed, Starting on Wed11/24/21 at 0857, Intra-Op Given 11/24/2021 8:57 AM RETURN TO VENDOR 80 mg Surgical Site ondansetron (ZOFRAN) injection 4 mg 4 mg, intravenous, Administer over 2 Minutes, Every 6 hours PRN, nausea, vomiting, if not tolerating PO, Starting on Wed11/24/21 at 0723, Indications: nausea and vomitingIndications:nausea and vomiting Given 11/24/2021 5:18 PM RETURN TO VENDOR 4 mg ondansetron ODT (ZOFRAN-ODT) disintegrating tablet 4 mg 4 mg, oral, Every 6 hours PRN, nausea, vomiting, Starting on Wed11/24/21 at 0723, Indications: nausea and vomitingIndications:nausea and vomiting oxyCODONE-acetaminophen (PERCOCET) 10-325 mg per tablet 1 tablet 1 tablet, oral, Every 4 hours PRN, 1st line for pain, Starting on Wed11/24/21 at 1149, Indications: PainIndications:Pain Given 11/26/2021 1:10 PM RETURN TO VENDOR 1 tablet Given 11/26/2021 8:58 AM RETURN TO VENDOR 1 tablet Given 11/26/2021 4:56 AM RETURN TO VENDOR [address] (PROTONIX) extended release tablet 40 mg 40 mg, oral, Daily, First dose on Wed11/24/21 at 1230, Do not crush, chew, cut, dissolve, open or otherwise manipulate tablet/capsule., Indications: Mucositis ProphylaxisIndications:Mucositis Prophylaxis Given 11/26/2021 8:18 AM RETURN TO VENDOR 40 mg Given 11/25/2021 8:54 AM RETURN TO VENDOR 40 mg Given 11/24/2021 12:53 PM RETURN TO VENDOR 40 mg polyethylene glycol (MIRALAX) packet 17 g 17 g, oral, 2 times daily PRN, constipation, Starting on Wed11/25/21 at 0853, Indications: constipationIndications:constipation polymyxin B injection As needed, Starting on Wed11/24/21 at 0856, Intra-Op Given 11/24/2021 8:56 AM RETURN TO VENDOR 1,000,000 Units senna-docusate (PERICOLACE) 8.6-50 mg per tablet 2 tablet 2 tablet, oral, 2 times daily, First dose on Wed11/24/21 at 1230, Hold for diarrhea., Indications: constipationIndications:constipation Given 11/26/2021 8:17 AM RETURN TO VENDOR 2 table ts Given 11/25/2021 9:52 PM RETURN TO VENDOR 2 tablets Given 11/25/2021 8:54 AM RETURN TO VENDOR 2 tablets simethicone (MYLICON) chewable tablet 80 mg 80 mg, oral, Every 4 hours PRN, flatulence, Starting on Wed11/24/21 at 1725 sodium chloride 0.9% flush 0.5-20 mL 0.5-20 mL, intra-catheter, Every 8 hours scheduled, First dose on Wed11/24/21 at 1400, Flush volume based on line type and size. , Indications: FlushingIndications:Flushing Given 11/26/2021 6:06 AM RETURN TO VENDOR 10 mL Given 11/25/2021 9:56 PM RETURN TO VENDOR 10 mL Given 11/24/2021 9:52 PM RETURN TO VENDOR 10 mL sodium chloride 0.9% infusion 100 mL/hr, intravenous, Continuous, Starting on Wed11/24/21 at 1230, Phase I & Post-op Floor New Bag 11/24/2021 9:56 PM RETURN TO VENDOR 100 mL/hr 100 mL/hr sodium chloride 0.9% irrigation As needed, Starting on Wed11/24/21 at 0856, Intra-Op Given 11/24/2021 8:57 AM RETURN TO VENDOR 1,000 mL Surgical Site Given 11/24/2021 8:56 AM RETURN TO VENDOR 3,000 mL Blue rgical Site Given 11/24/2021 8:54 AM RETURN TO VENDOR 1,000 mL Blue rgical Site tamsulosin (FLOMAX) extended release capsule 0.4 mg 0.4 mg, oral, Nightly, First dose on Wed11/24/21 at 2100, Do not crush, chew, cut, dissolve, open or otherwise manipulate tablet/capsule. Given 11/25/2021 9:52 PM RETURN TO VENDOR 0.4 mg Given 11/24/2021 9:50 PM RETURN TO VENDOR 0.4 mg tiZANidine (ZANAFLEX) tablet 4 mg 4 mg, oral, Nightly, First dose on Wed11/24/21 at 2100, Administer on an empty stomach Given 11/25/2021 9:51 PM RETURN TO VENDOR 4 mg Given 11/24/2021 9:52 PM RETURN TO VENDOR 4 mg traZODone (DESYREL) tablet 50 mg 50 mg, oral, Nightly, First dose on Wed11/24/21 at 2100 Given 11/25/2021 9:51 PM RETURN TO VENDOR 50 mg Given 11/24/2021 9:50 PM RETURN TO VENDOR 50 mg vancomycin (VANCOCIN) solution As needed, Starting on Wed11/24/21 at 0857, Intra-Op Given 11/24/2021 8:57 AM RETURN TO VENDOR 3,000 mg Surgical Site documented in this [...] Recently Administered Medications Times are shown in RETURN TO VENDOR. Scheduled Medication Order 11/24/2021 11/25/2021 11/26/2021 ceFAZolin [...] 11/24/2021 documented in this encounter Care Teams Clip On Sunglasses Assembler Relationship Specialty [place] [address] [facility] [place] [address] PCP - General 11/12/16 03/11/22 documented as of this encounter
--- OUTSIDE RECORDS SUMMARY | 2024-10-11 03:05 | XMS_ITS | Encounter Summary ---
Author Organization [facility] Address [address] [place] [address] Phone Care Team Providers Care System Controller Name Role Phone Santino Funk MD Primary Care Provider + Reason for Visit * Reason Comments Urinary Urgency pt is here to estab care and talk about urgency and ed Erectile Dysfunction Encounter Details Date Type Department Care Team (Late st Contact Info) Description 09/10/2020 2:00 PM FAMILY SERVICES ASSISTANT Office Visit [facility]) - [facility] Urology [id number] [place] [phone] Jessie Andrade, ENGINEERING LECTURER [id number] [place] [address] [address] [address] Erectile dysfunction, unspecified erectile dysfunction type (Primary Dx); Screening for hematuria or proteinuria; Other urinary incontinence; Weak urinary stream Social History Tobacco Use Types Packs/Day Years Used Date Smoking Tobacco: Former Cigarettes 1 [phone] - 6471 Smokeless Tobacco: Never Alcohol Use Standard Drinks/Week Comments Yes 1 (1 standard drink = 0.6 oz pur e alcohol) PHQ-2 Answer Date Recorded PHQ-2 Score 0 12/12/2018 Sex and Gender Information Value Date Recorded Sex Assigned at Not on file Legal Sex Male 3:25 PM FAMILY SERVICES ASSISTANT Gender Identity Not on file Sexual Orientation Not on file documented as of this encounter Last Filed Vital Signs Vital Sign Reading Time Taken Comments Blood Pressure 153/83 09/10/2020 2:17 PM FAMILY SERVICES ASSISTANT Pulse 69 09/10/2020 2:17 PM FAMILY SERVICES ASSISTANT Temperature 35.9 ??C (96.6 ??F) 09/10/2020 2:17 PM CS T Respiratory Rate 17 09/10/2020 2:17 PM FAMILY SERVICES ASSISTANT Oxygen Saturation - - Inhaled Oxygen Concentration - - Weight 98.9 kg (218 lb) 09/10/2020 2:17 PM FAMILY SERVICES ASSISTANT Height 180.3 cm (5' 11 ) 09/10/2020 2:17 PM FAMILY SERVICES ASSISTANT Body Mass Index 30.4 09/10/2020 2:17 PM FAMILY SERVICES ASSISTANT documented in this encounter Ordered Prescriptions Prescription Sig Dispense Quantity Refills Last Filled Start Date End Date tadalafiL (CIALIS) 20 mg tabletIndications: Erectile dysfunction, unspecified erectile dysfunction type Take 1 tablet (20 mg total) by mouth daily as needed for erectile dysfunction 12 tablet 3 09/10/2020 1 documented in this encounter Progress Notes * Jessie Andrade, ENGINEERING LECTURER - 09/10/2020 2:00 PM CST Urology History [...] HERNIA REPAIR 1980 Hiatal Hernia repair ??? MD ABDOMEN SURGERY PROC UNLISTED Hernia Repair - [...] once a day. SEAN Dahl [facility] Division [facility] Office [phone] 09/10/2020 3:22 PM Cosigned by Kong Mayfield MD at 09/13/2020 2:30 AM FAMILY SERVICES ASSISTANT LY SERVICES ASSISTANT LY SERVICES ASSISTANT documented in this encounter Plan of Treatment Upcoming Encounters Date Type Department Care Team (Latest Contact Info) Description 10/23/2024 10:00 AM FAMILY SERVICES ASSISTANT Hospital Encounter [facility] Operating Room [id number] [place] [address] [place] [address] [address] 10/23/2024 10:00 AM FAMILY SERVICES ASSISTANT - 10/23/2024 1:00 PM FAMILY SERVICES ASSISTANT Surgery [facility] Operating Room [address] [place] [address] [place] [address] [id number] ARTHROPLASTY TOTAL KNEE LEFT Scheduled Procedures Name Priority Associated Diagnoses Date/Ti me ARTHROPLASTY TOTAL KNEE left knee osteoarthritis 10/23/2024 10:00 AM FAMILY SERVICES ASSISTANT ESOPHAGOGASTRODUODENOSCOPY Dysphagia, unspecified type documented as of this encounter Procedures Procedure Name Priority Date/Time Associated Diagnosis Comments POCT URINALYSIS DIPSTICK Routine 09/10/2020 2:48 PM FAMILY SERVICES ASSISTANT Screening for hematuria or proteinuria documented in this encounter Results * POCT urinalysis dipstick (09/10/2020 2:48 PM FAMILY SERVICES ASSISTANT) Color, Urine, POC Yellow Comment:` Clarity, ur, POC Clear Clear Glucose, ur, POC Negative Negative mg/dL Ketones, ur, POC Negative Negative Blood, ur, POC Negative Negative pH, ur, POC 5.0 5.0 - 8.0 Protein, ur, POC Negative Negative Nitrite, ur, POC Negative Negative Leukocytes, ur, POC Negative Negative Lot Number x Urine 09/10/2020 2:48 PM FAMILY SERVICES ASSISTANT Jessie Andrade ENGINEERING LECTURER POINT OF CARE TEST ORDERABLES Final Result [...] 09/11/2021 added in this encounter Care Teams System Controller Relationship Specialty [place] [address] [facility] [place] [address] PCP - General 11/12/16 03/11/22 documented as of this encounter
--- OUTSIDE RECORDS SUMMARY | 2024-10-11 03:05 | XMS_ITS | Encounter Summary ---
Author Organization [facility] Address [address] [place] [address] Care Team Providers Care Bevel Mill Operator Name Role Phone Santino Funk MD Primary Care Provider + Encounter Details Date Type Department Care Team (Latest Contact Info) Description 08/22/2021 8:28 AM MEDICAL SAFETY DIRECTOR - 08/22/2021 11:59 PM MEDICAL SAFETY DIRECTOR Hospital Encounter [facility] [address] [phone] Discharge Disposition: Discharge to home [...] file Legal Sex Male 3:25 PM MEDICAL SAFETY DIRECTOR Gender Identity Not on file Sexual [...] mcg tablet Take 150 mcg by mouth aurist before breakfast 2 omeprazole (PriLOSEC) 20 mg [...] Contact Info) Description 10/23/2024 10:00 AM MEDICAL SAFETY DIRECTOR Hospital Encounter [facility] Operating Room [address] [place] [address] [place] [address] [address] 10/23/2024 10:00 AM MEDICAL SAFETY DIRECTOR - 10/23/2024 1:00 PM MEDICAL SAFETY DIRECTOR Surgery [facility] Operating Room [address] [place] [address] [place] [address] [address] ARTHROPLASTY TOTAL KNEE LEFT Scheduled Procedures Name Priority Associated Diagnoses Date/Ti me ARTHROPLASTY TOTAL KNEE left knee osteoarthritis 10/23/2024 10:00 AM MEDICAL SAFETY DIRECTOR ESOPHAGOGASTRODUODENOSCOPY Dysphagia, unspecified type documented as of this encounter Procedures Procedure Name Priority Date/Time Associated Diagnosis Comments XR KNEE BILATERAL 3 VIEWS Schedule Routine, Read Routine (OP Routine) 08/22/2021 8:57 AM MEDICAL SAFETY DIRECTOR Primary osteoarthritis of left knee Primary osteoarthritis of right knee documented in this encounter Results * XR Knee Bilateral 3 Views (08/22/2021 8:57 AM MEDICAL SAFETY DIRECTOR) Anatomical Region Laterality Modality Lower Extremities, Knee Bilateral Computed Radiography Narrative 08/22/2021 11:07 AM MEDICAL SAFETY DIRECTOR Bilateral knees three views demonstrates advanced varus arthritis of both knees, with subchondral sclerosis, subchondral cysts and [id number] contact in the medial compartment. ??Patellofemoral changes are also noted. us Jossie SANDOVAL IMG XR PROCEDURES Final Resul t documented in this encounter Visit Diagnoses Not on filedocumented in this encounter Care Teams Bevel Mill Operator Relationship Specialty [place] [address] [facility] [address] [place] [address] PCP - General 11/12/16 03/11/22 documented as of this encounter
--- OUTSIDE RECORDS SUMMARY | 2024-10-11 03:05 | XMS_ITS | Encounter Summary ---
Author Organization [facility] Address [address] [place] [address] Care Team Providers Care Cellar Hand Name Role Phone Santino Funk MD Primary Care Provider + Reason for Referral * (Routine) - Closed Specialty Diagnoses / Procedures Referred By Contac t Referred To Contact Diagnoses Cardiac arrhythmia due to premature depolarization, unspecified type Procedures ECG 12 [place] [address] [facility] [place] [address] Phone: tel: fax: [address] [phone] Referral ID Status Reason Start Date Expiration Date Visits Re quested Visits Authorized [id number] Closed 02/14/2020 08/25/2021 1 1 Reason for Visit * (Routine) - Closed Specialty Diagnoses / Procedures Referred By Contboone t Referred To Contact Diagnoses Cardiac arrhythmia due to premature depolarization, unspecified type Procedures ECG 12 [place] [address] [facility] [place] [address] Phone: tel: fax: [address] [phone] Referral ID Status Reason Start Date Expiration Date Visits Re quested Visits Authorized [id number] Closed 02/14/2020 08/25/2021 1 1 Encounter Details Date Type Department Care Team (Latest Contact Info) Description 02/14/2020 7:45 AM CDT - 02/14/2020 7:47 AM CDT Hospital Encounter [facility] [address] [place] [address] [place] [address] [facility] [place] [address] Cardiac arrhythmia due to premature depolarization, unspecified type Discharge Disposition: Discharge to home or self care Social History Tobacco Use Types Packs/Day Years Used Date Smoking Tobacco: Former Cigarettes 1 467 - 6773 Smokeless Tobacco: Never Alcohol Use Standard Drinks/Week Comments Yes 1 (1 standard drink = 0.6 oz pur e alcohol) PHQ-2 Answer Date Recorded PHQ-2 Score 0 12/12/2018 Sex and Gender Information Value Date Recorded Sex Assigned at Not on file Legal Sex Male 3:25 PM PEANUT FARMER Gender Identity Not on file Sexual [...] (150 mcg total) by mouth vice president lending before breakfast 60 tablet 1 12/31/2019 0 [...] (Latest Contact Info) Description 10/23/2024 10:00 AM PEANUT FARMER Hospital Encounter [facility] Operating Room [address] [place] [address] [place] [address] [phone] 10/23/2024 10:00 AM PEANUT FARMER - 10/23/2024 1:00 PM [facility] Surgery [facility] Operating Room [address] [place] [address] [place] [address] [phone] ARTHROPLASTY TOTAL KNEE LEFT Scheduled Procedures Name Priority Associated Diagnoses Date/Ti me ARTHROPLASTY TOTAL KNEE left knee osteoarthritis 10/23/2024 10:00 AM PEANUT FARMER ESOPHAGOGASTRODUODENOSCOPY Dysphagia, unspecified type documented as of this encounter Procedures Procedure Name Priority Date/Time Associated Diagnosis Comments ECG 12-LEAD Routine 02/14/2020 10:45 AM CDT Cardiac arrhythmia due to premature depolarization, unspecified type documented in this encounter Results * ECG 12 lead (02/14/2020 10:45 AM CDT) 02/14/2020 10:4 5 AM CDT Narrative [facility] - 02/14/2020 12:18 PM CDT Vent Rate: 56 bpm RR Interval: 1069 msec NV Interval: 167 msec QRS Duration: 84 msec QT Interval: 411 msec QTC Interval: 402 msec P-R-T [place]: 68 - -12 - 53 degrees SINUS BRADYCARDIA WITH OCCASIONAL VENTRICULAR PREMATURE COMPLEXES MINIMAL VOLTAGE CRITERIA FOR LVH, CONSIDER NORMAL VARIANT ??[MEETS CRITERIA IN ONE OF: R(aVL), S(V1), R(V5), R(V5/V6)+S(V1)] BORDERLINE ECG Electronically Signed By: Dr. Becky Mcfadden [facility] us Santino Funk MD ECG ORDERABLES Final Re sult [facility] documented in this encounter Visit Diagnoses Diagnosis Cardiac arrhythmia due to premature depolarization, unspecified type documented in this encounter Care Teams Cellar Hand Relationship Specialty [place] [address] [facility] [address] [place] [address] PCP - General 11/12/16 03/11/22 documented as of this encounter
--- OUTSIDE RECORDS SUMMARY | 2024-10-11 03:05 | XMS_ITS | Encounter Summary ---
Author Organization [facility] Address [address] [place] [address] Care Team Providers Care Assistant Buyer Name Role Phone Santino Funk MD Primary Care Provider + Encounter Details Date Type Department Care Team (Late st Contact Info) Description 08/22/2021 Orders Only [facility] [address] [address] [place] [address] [facility] [address] [place] [address] Social History Tobacco Use Types [...] on file Legal Sex Male 3:25 PM COUNTY DIRECTOR Gender Identity Not on file Sexual Orientation Not on file documented as of this encounter Plan of Treatment Upcoming Encounters Date Type Department Care Team (Latest Contact Info) Description 10/23/2024 10:00 AM COUNTY DIRECTOR Hospital Encounter [facility] Operating Room [address] [place] [address] [place] [address] [facility] [address] [place] [address] 10/23/2024 10:00 AM COUNTY DIRECTOR - 10/23/2024 1:00 PM COUNTY DIRECTOR Surgery [facility] Operating Room [address] [place] [address] [place] [address] [facility] [address] [place] [address] ARTHROPLASTY TOTAL KNEE LEFT Scheduled Procedures Name Priority Associated Diagnoses Date/Ti me ARTHROPLASTY TOTAL KNEE left knee osteoarthritis 10/23/2024 10:00 AM COUNTY DIRECTOR ESOPHAGOGASTRODUODENOSCOPY Dysphagia, unspecified type documented as of this encounter Visit Diagnoses Not on filedocumented in this encounter Care Teams Assistant Buyer Relationship Specialty [place] [address] [facility] [address] [place] [address] PCP - General 11/12/16 03/11/22 documented as of this encounter
--- OUTSIDE RECORDS SUMMARY | 2024-10-11 03:05 | XMS_ITS | Encounter Summary ---
Author Organization [facility] Address [address] [place] [address] Care Team Providers Care Immigration Patrol Inspector Name Role Phone Santino Funk MD Primary Care Provider + Reason for Referral * Diagnostic Imaging (Routine) - Closed Specialty Diagnoses / Procedures Referred By Dillan mccallum Referred To Contact Radiology Diagnoses 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) Transient ischemic attack (TIA) Left sided numbness Procedures MRI [place] [address] [address] Phone: tel: fax: [address] [phone] Referral ID Status Reason Start Date Expiration Date Visits Re quested Visits Authorized [id number] Closed 02/07/2020 08/18/2021 1 1 Reason for Visit * Diagnostic Imaging (Routine) - Closed Specialty Diagnoses / Procedures Referred By Dillan mccallum Referred To Contact Radiology Diagnoses 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) Transient ischemic attack (TIA) Left sided numbness Procedures MRI [place] [address] [address] Phone: tel: fax: [address] [place] [address] Referral ID Status Reason Start Date Expiration Date Visits Re quested Visits Authorized [id number] Closed 02/07/2020 08/18/2021 1 1 Encounter Details Date Type Department Care Team (Latest Contact Info) Description 02/14/2020 9:50 AM CDT - 02/14/2020 11:59 PM CDT Hospital Encounter [facility] Imaging and Radiology [address] [place] [address] [place] [address] [facility] [address] [place] [address] Late onset Alzheimer's disease without behavioral disturbance (CMS/HCC); Transient ischemic attack (TIA); Left sided numbness Discharge Disposition: Discharge to home or self care Social History Tobacco Use Types Packs/Day Years Used Date Smoking Tobacco: Former Cigarettes 1 [phone] Smokeless Tobacco: Never Alcohol Use Standard Drinks/Week Comments Yes 1 (1 standard drink = 0.6 oz pur e alcohol) PHQ-2 Answer Date Recorded PHQ-2 Score 0 12/12/2018 Sex and Gender Information Value Date Recorded Sex Assigned at Not on file Legal Sex Male 3:25 PM PLANT CULTURE MANAGER Gender Identity Not on file Sexual [...] 1 tablet (150 mcg total) by mouth office clinician before breakfast 60 tablet 1 12/31/2019 0 [...] Contact Info) Description 10/23/2024 10:00 AM PLANT CULTURE MANAGER Hospital Encounter [facility] Operating Room [id number] [place] [address] [place] [address] [address] 10/23/2024 10:00 AM PLANT CULTURE MANAGER - 10/23/2024 1:00 PM PLANT CULTURE MANAGER Surgery [facility] Operating Room [address] [place] [address] [place] [address] [address] ARTHROPLASTY TOTAL KNEE LEFT Scheduled Procedures Name Priority Associated Diagnoses Date/Ti me ARTHROPLASTY TOTAL KNEE left knee osteoarthritis 10/23/2024 10:00 AM PLANT CULTURE MANAGER ESOPHAGOGASTRODUODENOSCOPY Dysphagia, unspecified type documented as [...] previous. ??Normal flow-voids are seen within the [place]. ??Posterior fossa the brain appears [...] previous. Normal flow-voids are seen within the [place]. Posterior fossa the brain appears [...] numbness documented in this encounter Care Teams Immigration Patrol Inspector Relationship Specialty [place] [address] [address] PCP - General 11/12/16 03/11/22 documented as of this encounter
--- OUTSIDE RECORDS SUMMARY | 2024-10-11 03:05 | XMS_ITS | Encounter Summary ---
Author Organization [facility] Address [address] [place] [address] Care Team Providers Care Fur Puller Name Role Phone Feliberto Dubon MD Primary Care Provider + Reason for Referral * (Routine) - Closed Specialty Diagnoses / Procedures Referred By Contac t Referred To Contact Diagnoses Cardiac arrhythmia, unspecified cardiac arrhythmia type Procedures 48 [place] [address] [facility] [place] [address] Phone: tel: fax: [address] [phone] Referral ID Status Reason Start Date Expiration Date Visits Re quested Visits Authorized [id number] Closed 02/12/2020 08/23/2021 1 1 Reason for Visit * (Routine) - Closed Specialty Diagnoses / Procedures Referred By Contac t Referred To Contact Diagnoses Cardiac arrhythmia, unspecified cardiac arrhythmia type Procedures 48 [place] [address] [facility] [place] [address] Phone: tel: fax: [address] [phone] Referral ID Status Reason Start Date Expiration Date Visits Re quested Visits Authorized [id number] Closed 02/12/2020 08/23/2021 1 1 Encounter Details Date Type Department Care Team (Latest Contact Info) Description 02/14/2020 7:48 AM CDT - 02/14/2020 7:54 AM CDT Hospital Encounter [facility] Non-invasive Cardiac Diagnostic Testing [address] [place] [address] [place] [address] [facility] [place] [address] Cardiac arrhythmia, unspecified cardiac arrhythmia type Discharge Disposition: Discharge to home or self care Social History Tobacco Use Types Packs/Day Years Used Date Smoking Tobacco: Former Cigarettes 1 33 7402 Smokeless Tobacco: Never Alcohol Use Standard Drinks/Week Comments Yes 1 (1 standard drink = 0.6 oz pur e alcohol) PHQ-2 Answer Date Recorded PHQ-2 Score 0 12/12/2018 Sex and Gender Information Value Date Recorded Sex Assigned at Not on file Legal Sex Male 3:25 PM BRANCH MANAGER Gender Identity Not on file Sexual [...] 1 tablet (150 mcg total) by mouth change lead before breakfast 60 tablet 1 12/31/2019 0 [...] (Latest Contact Info) Description 10/23/2024 10:00 AM BRANCH MANAGER Hospital Encounter [facility] Operating Room [address] [place] [address] [place] [address] [id number] 10/23/2024 10:00 AM BRANCH MANAGER - 10/23/2024 1:00 PM [facility] Surgery [facility] Operating Room [address] [place] [address] [place] [address] [id number] ARTHROPLASTY TOTAL KNEE LEFT Scheduled Procedures Name Priority Associated Diagnoses Date/Ti me ARTHROPLASTY TOTAL KNEE left knee osteoarthritis 10/23/2024 10:00 AM BRANCH MANAGER ESOPHAGOGASTRODUODENOSCOPY Dysphagia, unspecified type documented as of this encounter Procedures Procedure Name Priority Date/Time Associated Diagnosis Comments HOLTER MONITOR 48 HR Routine 02/14/2020 11:48 AM CDT Cardiac arrhythmia, unspecified cardiac arrhythmia type documented in this encounter Results * 48 HR Holter Monitor (02/14/2020 11:48 AM CDT) Anatomical Region Laterality Modality Electrocardiogra phy 02/14/2020 11:3 2 AM CDT Narrative 02/23/2020 2:49 PM CDT [address] [address] HOLTER MONITOR Patient Name: ABRAHAN GTZ : [...] events Runs (SVT): 0 events Singlets (PVCs): 52547 events Couplets (PVCs): 62 events Runs (VT): 10 events Longest RR: 2.74 sec Longest RR Timestamp: 19:00:46 RRs > 2sec: 0 events SVT Fastest Run: 0 BPM SVT Longest Run: 0 beats VT Fastest Run: 162 BPM VT Longest Run: 4 beats Findings: Protocol: Recording Duration (Ordered): 48 hr, 0 min. Recording Duration (Actual): 47 hr, 13 min. Recorder: H3+. Total QRS: [id number]. Date Recorded: 2020-02-14 11:32:08. Date Processed: 2020-02-14 00:00:00. Shipping And Receiving: ____. Application Tech: . Study Quality: Study [...] the [place] [address] for the duration of the study. Ventricular ectopy consisted of single PVCs, couplets, ventricular runs. Occasional supraventricular ectopy was seen. No other significant arrhythmias or heart blocks were noted. Patient did not report any symptoms. Electronically Signed By: Josias Galvin MD, [facility] 2020-02-23 14:48:58 CDT Procedure Note Josias Galvin MD - 02/23/2020 [place] [address] HOLTER MONITOR Patient Name: ABRAHAN GTZ : [...] events Runs (SVT): 0 events Singlets (PVCs): 37816 events Couplets (PVCs): 62 events Runs (VT): 10 events Longest RR: 2.74 sec Longest RR Timestamp: 19:00:46 RRs > 2sec: 0 events SVT Fastest Run: 0 BPM SVT Longest Run: 0 beats VT Fastest Run: 162 BPM VT Longest Run: 4 beats Findings: Protocol: Recording Duration (Ordered): 48 hr, 0 min. Recording Duration (Actual): 47 hr, 13 min. Recorder: H3+. Total QRS: [id number]. Date Recorded: 2020-02-14 11:32:08. Date Processed: 2020-02-14 00:00:00. Shipping And Receiving: ____. Application Tech: sm. Study Quality: Study [...] of [place], [place] [address] for the duration of the study. Ventricularectopy consisted of single PVCs, couplets, ventricular runs. Occasional supraventricularectopy was seen. No other significant arrhythmias or heart blocks were noted. Patient did notreport any symptoms. Electronically Signed By: Josias Galvin MD, [facility] 2020-02-23 14:48:58 CDT Feliberto Dubon MD [facility] CARDIAC SERVICES PROC EDURES Final Result documented in this encounter Visit Diagnoses Diagnosis Cardiac arrhythmia, unspecified cardiac arrhythmia type documented in this encounter Care Teams Fur Puller Relationship Specialty [place] [address] [facility] [place] [address] PCP - General 11/12/16 03/11/22 documented as of this encounter
--- OUTSIDE RECORDS SUMMARY | 2024-10-11 03:05 | XMS_ITS | Encounter Summary ---
Author Organization [facility] Address [address] [facility] [address] [place] [address] Care Team Providers Care Cake Batter Mixer Name Role Phone Santino Funk MD Primary Care Provider + Encounter Details Date Type Department Care Team (Late st Contact Info) Description 08/22/2021 Telephone [facility] [address] [phone] Maura Serrano Social History Tobacco [...] on file Legal Sex Male 3:25 PM GLASS MOULD CLEANER Gender Identity Not on file Sexual Orientation Not on file documented as of this encounter Miscellaneous Notes * Telephone Encounter - Giulia Wallis PA - 08/22/2021 10:26 AM GLASS MOULD CLEANER Order placed. Thank you S MOULD CLEANER documented in this encounter Plan of Treatment Upcoming Encounters Date Type Department Care Team (Latest Contact Info) Description 10/23/2024 10:00 AM GLASS MOULD CLEANER Hospital Encounter [facility] Operating Room [address] [place] [address] [place] [address] [facility] [address] [place] [address] 10/23/2024 10:00 AM GLASS MOULD CLEANER - 10/23/2024 1:00 PM GLASS MOULD CLEANER Surgery [facility] Operating Room [address] [place] [address] [place] [address] [address] ARTHROPLASTY TOTAL KNEE LEFT Scheduled Procedures Name Priority Associated Diagnoses Date/Ti me ARTHROPLASTY TOTAL KNEE left knee osteoarthritis 10/23/2024 10:00 AM GLASS MOULD CLEANER ESOPHAGOGASTRODUODENOSCOPY Dysphagia, unspecified type documented as of this encounter Visit Diagnoses Not on filedocumented in this encounter Care Teams Cake Batter Mixer Relationship Specialty [place] [address] [facility] [address] PCP - General 11/12/16 03/11/22 documented as of this encounter
--- OUTSIDE RECORDS SUMMARY | 2024-10-11 03:05 | XMS_ITS | Encounter Summary ---
Author Organization [facility] Address [address] [facility] [address] [place] [address] Care Team Providers Care A/C Tech Name Role Phone Santino Funk MD Primary Care Provider + Reason for Referral * Procedure (Routine) - Closed Specialty Diagnoses / Procedures Referred By Contac t Referred To Contact Diagnoses Primary osteoarthritis of left knee Primary osteoarthritis of right knee Procedures Large Joint (Hip, Knee, Shoulder) Injection: [place] [address] [place] [address] Phone: tel: fax: [facility] Referral ID Status Reason Start Date Expiration Date Visits Re quested Visits Authorized [id number] Closed 08/22/2021 09/21/2022 1 1 WOOD FALLER * Procedure (Routine) - Closed Specialty Diagnoses / Procedures Referred By Contac t Referred To Contact Diagnoses Primary osteoarthritis of left knee Primary osteoarthritis of right knee Procedures Large Joint (Hip, Knee, Shoulder) [place]: [place] [address] [place] [address] Phone: tel: fax: [facility] Referral ID Status Reason Start Date Expiration Date Visits Re quested Visits Authorized [id number] Closed 08/22/2021 09/21/2022 1 1 WOOD FALLER Reason for Visit * Reason Comments Follow-up Injections Follow-up Injections Encounter Details Date Type Department Care Team (Latest Contact Info) Description 08/22/2021 8:15 AM HARDWOOD FALLER [facility] [address] [facility] [address] [place] [phone] [place] [address] [address] Primary osteoarthritis of left knee [...] on file Legal Sex Male 3:25 PM HARDWOOD FALLER Gender Identity Not on file Sexual Orientation Not on file documented as of this encounter Last Filed Vital Signs Vital Sign Reading Time Taken Comments Blood Pressure - - Pulse - - Temperature - - Respiratory Rate - - Oxygen Saturation - - Inhaled Oxygen Concentration - - Weight 93.9 kg (207 lb) 08/22/2021 8:21 AM HARDWOOD FALLER Height 180.3 cm (5' 11 ) 08/22/2021 8:21 AM HARDWOOD FALLER Body Mass Index 28.87 08/22/2021 8:21 AM HARDWOOD FALLER documented in this encounter Progress Notes * [...] is actually scheduled for knee replacement at [facility] at the end of this [...] skin or subcutaneous tissue, Seizures (CMS/HCC) ([facility]) (1997), SOB (shortness of breath) on exertion, Subchondral insufficiency fracture of condyle of left femur(CMS/HCC) ([facility]), and Visual disturbance.He has no past medical [...] knees, with subchondral sclerosis, subchondral cysts and sgyh-wv-pros contact in the medial compartment. Patellofemoral changes [...] George Sepulveda MD at 08/22/2021 11:47 AM HARDWOOD FALLER WOOD FALLER WOOD FALLER documented in this encounter Plan of Treatment Upcoming Encounters Date Type Department Care Team (Latest Contact Info) Description 10/23/2024 10:00 AM HARDWOOD FALLER Hospital Encounter [facility] Operating Room [address] [place] [address] [place] [id number] [place] [address] 10/23/2024 10:00 AM HARDWOOD FALLER - 10/23/2024 1:00 PM HARDWOOD FALLER Surgery [facility] Operating Room [address] [place] [address] [place] [address] [id number] ARTHROPLASTY TOTAL KNEE LEFT Scheduled Procedures Name Priority Associated Diagnoses Date/Ti me ARTHROPLASTY TOTAL KNEE left knee osteoarthritis 10/23/2024 10:00 AM HARDWOOD FALLER ESOPHAGOGASTRODUODENOSCOPY Dysphagia, unspecified type documented as of this encounter Procedures Procedure Name Priority Date/Time Associated Diagnosis Comments XR KNEE BILATERAL 3 VIEWS Schedule Routine, Read Routine (OP Routine) 08/22/2021 8:57 AM HARDWOOD FALLER Primary osteoarthritis of left knee Primary osteoarthritis of right knee AL ARTHROCENTESIS ASPIR&/INJ MAJOR JT/BURSA W/O US Routine 08/22/2021 8:15 AM HARDWOOD FALLER Primary osteoarthritis of left knee Primary osteoarthritis of right knee AL ARTHROCENTESIS ASPIR&/INJ MAJOR JT/BURSA W/O US Routine 08/22/2021 8:15 AM HARDWOOD FALLER Primary osteoarthritis of left knee Primary osteoarthritis of right knee documented in this encounter Results * XR Knee Bilateral 3 Views (08/22/2021 8:57 AM HARDWOOD FALLER) Anatomical Region Laterality Modality Lower Extremities, Knee Bilateral Computed Radiography Narrative 08/22/2021 11:07 AM HARDWOOD FALLER Bilateral knees three views demonstrates advanced varus arthritis of both knees, with subchondral sclerosis, subchondral cysts and kiac-wf-rfky contact in the medial compartment. ??Patellofemoral changes are also noted. us Jossie SANDOVAL IMG XR PROCEDURES Final Resul t * AL ARTHROCENTESIS ASPIR&/INJ MAJOR JT/BURSA W/O US (08/22/2021 8:15 AM HARDWOOD FALLER) Narrative George Sepulveda MD - 08/22/2021 8:15 AM HARDWOOD FALLER Jossie Montalvo PA ? 08/22/2021 11:16 AM [...] SANDOVAL IN CLINIC/BEDSIDE ORDERABLES Final Result * AL ARTHROCENTESIS ASPIR&/INJ MAJOR JT/BURSA W/O US (08/22/2021 8:15 AM HARDWOOD FALLER) Narrative George Sepulveda MD - 08/22/2021 8:15 AM HARDWOOD FALLER Jossie Montalvo PA ? 08/22/2021 11:16 AM [...] of Local Anesthesia Given 08/22/2021 11:16 AM HARDWOOD FALLER 4 mL lidocaine (XYLOCAINE) 10 mg/mL (1 %) injection 4 mL 4 mL, One-Time Injection, Starting on Wed08/22/21 at 1116, For 1 dose, Indications: Administration of Local AnesthesiaIndications:Administrati on of Local Anesthesia Given 08/22/2021 11:16 AM HARDWOOD FALLER 4 mL methylPREDNISolone acetate (DEPO-medrol) injection 80 mg 80 mg, intra-articular, One-Time Injection, Starting on Wed08/22/21 at 1116, For 1 doseIndications:Primary osteoarthritis of left knee,Primary osteoarthritis of right knee Given 08/22/2021 11:16 AM HARDWOOD FALLER 80 mg methylPREDNISolone acetate (DEPO-medrol) injection 80 mg 80 mg, intra-articular, One-Time Injection, Starting on Wed08/22/21 at 1116, For 1 doseIndications:Primary osteoarthritis of left knee,Primary osteoarthritis of right knee Given 08/22/2021 11:16 AM HARDWOOD FALLER 80 mg documented in this encounter Historical Medications * This list may reflect changes made after this encounter. traZODone (DESYREL) 50 mg tablet Take by mouth nightly 10/12 to 1 tablet 08/15/2021 10/11/2023 added in this encounter Care Teams A/C Tech Relationship Specialty [place] [address] [facility] [place] [address] PCP - General 11/12/16 03/11/22 documented as of this encounter
--- OUTSIDE RECORDS SUMMARY | 2024-10-11 03:05 | XMS_ITS | Encounter Summary ---
Author Organization [facility] Address [address] [place] [address] Phone Care Team Providers Care Automotive Engineering Technician Name Role Phone Santino Funk MD Primary Care Provider + Reason for Visit * Reason Comments Thyroid Problem Encounter Details Date Type Department Care Team (Late st Contact Info) Description 04/08/2020 8:00 AM CDT Office Visit [facility] - [facility] ENT [address] [facility] [address]th [place] [address] [place] [phone] Saqib Henry MD [address] [place] [address] Substernal thyroid goiter (Primary Dx) [...] on file Legal Sex Male 3:25 PM DUST MILL OPERATOR Gender Identity Not on file Sexual Orientation Not on file documented as of this encounter Progress Notes * Saqib Henry MD - 04/08/2020 8:00 AM CDT [facility] Department of Otolaryngology Division of Head and Neck Surgery 04/08/2020 Abrahan Gtz Jr. 1944 [id number] Referred by: Dr. Santino Mcgarry Chief Complaint: [...] HERNIA REPAIR 1980 Hiatal Hernia repair ??? [place] ABDOMEN SURGERY PROC UNLISTED Hernia Repair - [...] file Gets together: Not on file Attends christianity service: Not on file Active member of [...] 1 tablet (150 mcg total) by mouth railroad worker before breakfast 60 tablet 1 ??? omeprazole [...] managed by PCP Saqib Henry MD PhD Sales Merchandiser Attending, Head and Neck Surgery Department of Otolaryngology [facility] [phone] (Clinical nurse Jacquie Hensley RN) Pager [phone] documented in this encounter Plan of Treatment Upcoming Encounters Date Type Department Care Team (Latest Contact Info) Description 10/23/2024 10:00 AM DUST MILL OPERATOR Hospital Encounter [facility] Operating Room [address] [place] [address] [place] [address] [facility] [address] [place], [place] [phone] 10/23/2024 10:00 AM DUST MILL OPERATOR - 10/23/2024 1:00 PM DUST MILL OPERATOR Surgery [facility] Operating Room [address] [place] [address] [place] [address] [facility] [address] [place] [address] ARTHROPLASTY TOTAL KNEE LEFT Scheduled Procedures Name Priority Associated Diagnoses Date/Ti me ARTHROPLASTY TOTAL KNEE left knee osteoarthritis 10/23/2024 10:00 AM DUST MILL OPERATOR ESOPHAGOGASTRODUODENOSCOPY Dysphagia, unspecified type documented [...] - GENER AL ORDERABLES Final Result [facility] [address] [address] Department [place] [address] documented in this encounter Visit Diagnoses Diagnosis Substernal thyroid goiter- Primary Goiter, unspecified documented in this encounter Care Teams Automotive Engineering Technician Relationship Specialty [place] [address] [address] [facility] [address] [place] [address] PCP - General 11/12/16 03/11/22 documented as of this encounter
--- OUTSIDE RECORDS SUMMARY | 2024-10-11 03:05 | XMS_ITS | Encounter Summary ---
Author Organization [facility] Address [address] [facility] [address] [place] [address] Care Team Providers Care Systems Integration Advisor Name Role Phone Santino Funk MD Primary Care Provider + Reason for Referral * Procedure (Routine) - Closed Specialty Diagnoses / Procedures Referred By Contac t Referred To Contact Diagnoses Primary osteoarthritis of right knee Procedures Large Joint (Hip, Knee, Shoulder) [place]: [place] [address] [facility] [place] [address] [place] [address] Phone: tel: fax: [facility] Referral ID Status Reason Start Date Expiration Date Visits Re quested Visits Authorized [id number] Closed 10/14/2020 11/13/2021 1 1 WORK * Procedure (Routine) - Closed Specialty Diagnoses / Procedures Referred By Contac t Referred To Contact Diagnoses Primary osteoarthritis of left knee Procedures Large Joint (Hip, Knee, Shoulder) [place]: [place] [address] [facility] [place] [address] [place] [address] Phone: tel: fax: [facility] Referral ID Status Reason Start Date Expiration Date Visits Re quested Visits Authorized [id number] Closed 10/14/2020 11/13/2021 1 1 WORK Reason for Visit * Reason Comments Pain Injections Pain Injections Encounter Details Date Type Department Care Team (Latest Contact Info) Description 10/14/2020 10:45 AM MILL WORK Office Visit [facility] [address] [address] [place] [address] [address] Primary osteoarthritis of left knee [...] on file Legal Sex Male 3:25 PM MILL WORK Gender Identity Not on file Sexual Orientation Not on file documented as of this encounter Last Filed Vital Signs Vital Sign Reading Time Taken Comments Blood Pressure - - Pulse - - Temperature 36.2 ??C (97.1 ??F) 10/14/2020 11:[address] Respiratory Rate - - Oxygen Saturation - - Inhaled Oxygen Concentration - - Weight 101.6 kg (224 lb) 10/14/2020 11:06 AM MILL WORK Height 180.3 cm (5' 11 ) 10/14/2020 11:06 AM MILL WORK Body Mass Index 31.24 10/14/2020 11:06 AM MILL WORK documented in this encounter Progress Notes * [...] George Sepulveda MD at 10/14/2020 3:26 PM MILL WORK WORK WORK documented in this encounter Plan of Treatment Upcoming Encounters Date Type Department Care Team (Latest Contact Info) Description 10/23/2024 10:00 AM MILL WORK Hospital Encounter [facility] Operating Room [address] [place] [address] [place] [address] [address] 10/23/2024 10:00 AM MILL WORK - 10/23/2024 1:00 PM MILL WORK Surgery [facility] Operating Room [address] [place] [address] [place] [address] [id number] ARTHROPLASTY TOTAL KNEE LEFT Scheduled Procedures Name Priority Associated Diagnoses Date/Ti me ARTHROPLASTY TOTAL KNEE left knee osteoarthritis 10/23/2024 10:00 AM MILL WORK ESOPHAGOGASTRODUODENOSCOPY Dysphagia, unspecified type documented as of this encounter Procedures Procedure Name Priority Date/Time Associated Diagnosis Comments [place] ARTHROCENTESIS ASPIR&/INJ MAJOR JT/BURSA W/O US Routine 10/14/2020 10:45 AM MILL WORK Primary osteoarthritis of right knee [place] ARTHROCENTESIS ASPIR&/INJ MAJOR JT/BURSA W/O US Routine 10/14/2020 10:45 AM MILL WORK Primary osteoarthritis of left knee documented in this encounter Results * [place] ARTHROCENTESIS ASPIR&/INJ MAJOR JT/BURSA W/O US (10/14/2020 10:45 AM MILL WORK) Narrative George Sepulveda MD - 10/14/2020 10:45 AM MILL WORK Carol Aceves PA ? 10/14/2020 ??2:51 PM [...] SANDOVAL IN CLINIC/BEDSIDE ORDERABLES Final Result * [place] ARTHROCENTESIS ASPIR&/INJ MAJOR JT/BURSA W/O US (10/14/2020 10:45 AM MILL WORK) Narrative George Sepulveda MD - 10/14/2020 10:45 AM MILL WORK Carol Aceves PA ? 10/14/2020 ??2:51 PM [...] of left knee Given 10/14/2020 2:51 PM MILL WORK 4 mL lidocaine (XYLOCAINE) 20 mg/mL (2 %) preservative free injection 4 mL 4 mL, One-Time Injection, Starting on Wed10/14/20 at 1451, For 1 doseIndications:Primary osteoarthritis of right knee Given 10/14/2020 2:51 PM MILL WORK 4 mL methylPREDNISolone acetate (DEPO-medrol) injection 80 mg 80 mg, intra-articular, One-Time Injection, Starting on Wed10/14/20 at 1451, For 1 doseIndications:Primary osteoarthritis of left knee Given 10/14/2020 2:51 PM MILL WORK 80 mg methylPREDNISolone acetate (DEPO-medrol) injection 80 mg 80 mg, intra-articular, One-Time Injection, Starting on Wed10/14/20 at 1451, For 1 doseIndications:Primary osteoarthritis of right knee Given 10/14/2020 2:51 PM MILL WORK 80 mg documented in this encounter Care Teams Systems Integration Advisor Relationship Specialty [place] [address] [facility] [address] PCP - General 11/12/16 03/11/22 documented as of this encounter
--- OUTSIDE RECORDS SUMMARY | 2024-10-11 03:05 | XMS_ITS | Encounter Summary ---
Author Organization [facility] Address [address] [facility] [address] [place] [address] Care Team Providers Care Records Management Engineer Name Role Phone Santino Funk MD Primary Care Provider + Encounter Details Date Type Department Care Team (Late st Contact Info) Description 08/25/2021 Telephone [facility] [address] [address] [place] [address] [address] Social History Tobacco Use Types Packs/Day Years Used Date Smoking Tobacco: Former Cigarettes 1 966 - 3098 Smokeless Tobacco: Never Alcohol Use Standard Drinks/Week Comments Yes 1 (1 standard drink = 0.6 oz pur e alcohol) PHQ-2 Answer Date Recorded PHQ-2 Score 0 12/12/2018 Sex and Gender Information Value Date Recorded Sex Assigned at Not on file Legal Sex Male 3:25 PM BOILERMAKING SUPERVISOR Gender Identity Not on file Sexual Orientation Not on file documented as of this encounter Miscellaneous Notes * Telephone Encounter - Becky Espinal PA - 08/25/2021 3:41 PM BOILERMAKING SUPERVISOR Spoke w/pt and all questions answered. ERMAKING SUPERVISOR * Telephone Encounter - Becky Espinal PA - 08/25/2021 3:28 PM BOILERMAKING SUPERVISOR Left message for patient to call back. ERMAKING SUPERVISOR * Telephone Encounter - Joana Suresh - 08/25/2021 2:35 PM CST Patient c/o blt knee pain, last injection was 08/22. Patient was informed injection becomes effective in about 7 days but patient requesting a return call. [phone] ERMAKING SUPERVISOR documented in this encounter Plan of Treatment Upcoming Encounters Date Type Department Care Team (Latest Contact Info) Description 10/23/2024 10:00 AM BOILERMAKING SUPERVISOR Hospital Encounter [facility] Operating Room [address] [place] [address] [place] [address] [address] 10/23/2024 10:00 AM BOILERMAKING SUPERVISOR - 10/23/2024 1:00 PM BOILERMAKING SUPERVISOR Surgery [facility] Operating Room [address] [place] [address] [place] [address] [address] ARTHROPLASTY TOTAL KNEE LEFT Scheduled Procedures Name Priority Associated Diagnoses Date/Ti me ARTHROPLASTY TOTAL KNEE left knee osteoarthritis 10/23/2024 10:00 AM BOILERMAKING SUPERVISOR ESOPHAGOGASTRODUODENOSCOPY Dysphagia, unspecified type documented as of this encounter Visit Diagnoses Not on filedocumented in this encounter Care Teams Records Management Engineer Relationship Specialty [place] [address] [address] PCP - General 11/12/16 03/11/22 documented as of this encounter
--- OUTSIDE RECORDS SUMMARY | 2024-10-11 03:05 | XMS_ITS | Encounter Summary ---
Author Organization [facility] Address [address] [place] [address] Care Team Providers Care Administrative Assistant Data Entry Name Role Phone Santino Funk MD Primary Care Provider + Encounter Details Date Type Department Care Team (Late st Contact Info) Description 11/24/2021 8:24 AM HEEL CASER Anesthesia Event [facility] Operating Room [address] [place], [place] [id number] Isaac Jara MD [address] [address] [place] [address] [address] Anesthesia Record Procedure Summary Procedure [...] on file Legal Sex Male 3:25 PM HEEL CASER Gender Identity Not on file Sexual Orientation [...] normothermic Nausea/Vomiting status: none No complications documented. CASER * Anesthesia Procedure Notes - Morenita Combs CRNA - 11/24/2021 8:47 AM CSTAssociated Order(s): Spinal Block Spinal Block Patient location: OR Start time: 11/24/2021 8:29 AM End time: 11/24/2021 8:31 AM Reason for block: primary anesthetic Staff: Placed by: LINING FELLER:Morenita Combs CRNA Procedure prep: Preprocedure checklist: patient [...] patient tolerated procedure well with no complications CASER * Anesthesia Procedure Notes - Luciano Lowery MD - 11/24/2021 8:02 AM HEEL CASER Associated Order(s): Peripheral Block Peripheral Block Patient [...] ..30 ml of 0.25% marcaine with Epi CASER * Anesthesia Preprocedure Evaluation - Luciano Lowery [...] Review of Systems + SOB (Works at [employer], walks frequently. ) + vision loss (Glasses [...] ([facility]) 1998 last seizure in 1998 [...] Rate: 56 bpm RR Interval: 1069 msec AR Interval: 167 msec QRS Duration: 84 msec QT Interval: 411 msec QTC Interval: 402 msec P-R-T [place]: 68 - -12 - 53 degrees SINUS BRADYCARDIA WITH OCCASIONAL VENTRICULAR PREMATURE COMPLEXES MINIMAL VOLTAGE CRITERIA FOR LVH, CONSIDER NORMAL VARIANT ??[MEETS CRITERIA IN ONE OF: R(aVL), S(V1), R(V5), R(V5/V6)+S(V1)] BORDERLINE ECG Electronically Signed By: Dr. Becky Mcfadden [facility] DOS Physical Exam Medical history, medications, and allergies reviewed. Attestation: This PAT evaluation Airway Exam: Mallampati: II Cervical ROM: FROM TM distance: >4 Cardiovascular Exam: Rate: regular Rhythm: regular Pulmonary Exam: LCTA, bilat Dental Exam: Appears intact Current state: Patient's current state is cooperative. Anesthesia Plan ASA 2 My patient is approved for the Anesthesia Controlled Medication protocol when under care of a LINING FELLER Planned anesthesia: Spinal and PNB - single [...] and agree to proceed. All questions answered. CASER CASER CASER CASER documented in this encounter Plan of Treatment Upcoming Encounters Date Type Department Care Team (Latest Contact Info) Description 10/23/2024 10:00 AM HEEL CASER Hospital Encounter [facility] Operating Room [address] [place] [address] [place] [address] [address] 10/23/2024 10:00 AM HEEL CASER - 10/23/2024 1:00 PM HEEL CASER Surgery [facility] Operating Room [address] [place] [address] [place] [address] [facility] [address] [place] [address] ARTHROPLASTY TOTAL KNEE LEFT Scheduled Procedures Name Priority Associated Diagnoses Date/Ti me ARTHROPLASTY TOTAL KNEE left knee osteoarthritis 10/23/2024 10:00 AM HEEL CASER ESOPHAGOGASTRODUODENOSCOPY Dysphagia, unspecified type documented as of this encounter Procedures Procedure Name Priority Date/Time Associated Diagnosis Comments ANESTHESIA SPINAL BLOCK Routine 11/24/2021 8:29 AM HEEL CASER ANESTHESIA PERIPHERAL BLOCK Routine 11/24/2021 8:02 AM HEEL CASER documented in this encounter Results * Spinal Block (11/24/2021 8:29 AM HEEL CASER) Narrative Morenita Combs CRNA - 11/24/2021 8:29 AM HEEL CASER Morenita Combs CRNA ? 11/24/2021 ??8:50 AM Spinal Block Patient location: OR Start time: 11/24/2021 8:29 AM End time: 11/24/2021 8:31 AM Reason for block: primary anesthetic Staff: Placed by: LINING FELLER:Morenita Combs CRNA Procedure prep: Preprocedure checklist: patient [...] lt * Peripheral Block (11/24/2021 8:02 AM HEEL CASER) Narrative Luciano Lowery MD - 11/24/2021 8:02 AM HEEL CASER Luciano Lowery MD ? 11/24/2021 ??8:02 AM [...] 0831, Anesthesia Intra-op Given 11/24/2021 8:31 AM HEEL CASER 3 mL ceFAZolin (ANCEF) 1 gram/10 mL in sterile water (premix) 2,000 mg 2,000 mg, intravenous, at 400 mL/hr, Administer over 3 Minutes, Once, On Wed11/24/21 at 0800, For 1 dose, Indications: Prophylaxis, SurgicalIndications:Prophylax is, Surgical Given 11/24/2021 8:35 AM HEEL CASER 2,000 mg dexAMETHasone (DECADRON) 4 mg/mL injection intravenous, Administer over 2 Minutes, As needed, Starting on Wed11/24/21 at 0832, Anesthesia Intra-op Given 11/24/2021 8:32 AM HEEL CASER 4 mg diphenhydrAMINE (BENADRYL) injection intravenous, Administer over 2 Minutes, As needed, Starting on Wed11/24/21 at 0859, Anesthesia Intra-op Given 11/24/2021 8:59 AM HEEL CASER 12.5 mg Lactated Ringer's (LR) infusion 30 mL/hr, intravenous, Continuous, Starting on Wed11/24/21 at 0745 New Bag 11/24/2021 11:01 AM HEEL CASER 30 mL/hr 30 mL/hr Restarted 11/24/2021 10:09 AM HEEL CASER New Bag 11/24/2021 8:24 AM HEEL CASER 50 mL/hr midazolam (VERSED) 1 mg/mL preservative free injection intravenous, Administer over 2 Minutes, As needed, Starting on Wed11/24/21 at 0832, Anesthesia Intra-op Given 11/24/2021 9:24 AM HEEL CASER 2 mg Given 11/24/2021 8:32 AM HEEL CASER 2 mg ondansetron (ZOFRAN) injection intravenous, Administer over 2 Minutes, As needed, Starting on Wed11/24/21 at 0832, Anesthesia Intra-op Given 11/24/2021 8:32 AM HEEL CASER 4 mg phenylephrine (MAGY-SYNEPHRINE) 1 mg/10 mL (100 mcg/mL) in sodium chloride 0.9% (premix) intravenous, As needed, Starting on Wed11/24/21 at 0841, Anesthesia Intra-op Given 11/24/2021 10:04 AM HEEL CASER 100 mc g Given 11/24/2021 9:56 AM HEEL CASER 100 mcg Given 11/24/2021 9:42 AM HEEL CASER 100 mcg propofoL (DIPRIVAN) 10 mg/mL IV intravenous, Continuous PRN, Starting on Wed11/24/21 at 0835, Anesthesia Intra-op Rate/Dose Change 11/24/2021 9:51 AM HEEL CASER 50 mcg/kg/min 28.38 mL/hr Rate/Dose Change 11/24/2021 8:38 AM HEEL CASER 75 mcg/kg/min 42.5 7 mL/hr Rate/Dose Change 11/24/2021 8:36 AM HEEL CASER 100 mcg/kg/min 56. 76 mL/hr tranexamic acid (CYKLOKAPRON) 1,000 mg in sodium chloride 0.9% 100 mL (10 mg/mL) infusion intravenous, Continuous PRN, Starting on Wed11/24/21 at 0846, Anesthesia Intra-op New Bag 11/24/2021 8:46 AM HEEL CASER 1 mg/kg/hr 9.46 mL/hr tranexamic acid (CYKLOKAPRON) 1,000 mg/10 mL (100 mg/mL) solution intravenous, As needed, Starting on Wed11/24/21 at 0836, Anesthesia Intra-op Given 11/24/2021 8:36 AM HEEL CASER 1,365 mg documented in this encounter Care Teams Administrative Assistant Data Entry Relationship Specialty [place] [address] [address] PCP - General 11/12/16 03/11/22 documented as of this encounter
--- OUTSIDE RECORDS SUMMARY | 2024-10-11 03:05 | XMS_ITS | Encounter Summary ---
Author Organization [facility] Address [address] [facility] [address] [place] [address] Care Team Providers Care Safety Net Maker Name Role Phone Santino Funk MD Primary Care Provider + Reason for Referral * Procedure (Routine) - Closed Specialty Diagnoses / Procedures Referred By Contac t Referred To Contact Diagnoses Primary osteoarthritis of left knee Primary osteoarthritis of right knee Procedures Large Joint (Hip, Knee, Shoulder) Injection: L knee Carol Aceves [place] [phone] [place] [address] Phone: tel: fax: [facility] Referral ID Status Reason Start Date Expiration Date Visits Re quested Visits Authorized [id number] Closed 07/11/2020 08/10/2021 1 1 Reason for Visit * Reason Comments Injections Injections Encounter Details Date Type Department Care Team (Latest Contact Info) Description 07/11/2020 8:15 AM CDT Office Visit [facility] [address] [address] [place] Ace[place] [phone] [place] [address] Primary osteoarthritis of left knee (Primary [...] file Legal Sex Male 3:25 PM SALES REPRESENTATIVE ADVERTISING Gender Identity Not on file Sexual Orientation [...] (Latest Contact Info) Description 10/23/2024 10:00 AM [facility] Hospital Encounter [facility] Operating Room [address] [place] [address] [place] [address] [address] 10/23/2024 10:00 AM SALES REPRESENTATIVE ADVERTISING - 10/23/2024 1:00 PM [facility] Surgery [facility] Operating Room [address] [place] [address] [place] [address] [address] ARTHROPLASTY TOTAL KNEE LEFT Scheduled Procedures Name Priority Associated Diagnoses Date/Ti me ARTHROPLASTY TOTAL KNEE left knee osteoarthritis 10/23/2024 10:00 AM SALES REPRESENTATIVE ADVERTISING ESOPHAGOGASTRODUODENOSCOPY Dysphagia, unspecified type documented as of this encounter Procedures Procedure Name Priority Date/Time Associated Diagnosis Comments [place] ARTHROCENTESIS ASPIR&/INJ MAJOR JT/BURSA W/O US Routine 07/11/2020 8:15 AM CDT Primary osteoarthritis of left knee Primary osteoarthritis of right knee documented in this encounter Results * [place] ARTHROCENTESIS ASPIR&/INJ MAJOR JT/BURSA W/O US (07/11/2020 [...] mg documented in this encounter Care Teams Safety Net Maker Relationship Specialty [place] [id number] [place] [address] PCP - General 11/12/16 03/11/22 documented as of this encounter
--- OUTSIDE RECORDS SUMMARY | 2024-10-11 03:05 | XMS_ITS | Encounter Summary ---
Author Organization [facility] Address [address] [facility] [address] [place] [address] Care Team Providers Care Pack Worker Supervisor Name Role Phone Santino Funk MD Primary Care Provider + Reason for Visit * Reason Onset Date Comments LEAVING PRACTICE 02/25/2021 Encounter Details Date Type Department Care Team (Late st Contact Info) Description 02/25/2021 Telephone [facility] [address] [facility] [address] [place] [address] [place] [address] [facility] [address] [place] [address] LEAVING PRACTICE Social History Tobacco Use Types Packs/Day Years Used Date Smoking Tobacco: Former Cigarettes 1 466 - 5545 Smokeless Tobacco: Never Alcohol Use Standard Drinks/Week Comments Yes 1 (1 standard drink = 0.6 oz pur e alcohol) PHQ-2 Answer Date Recorded PHQ-2 Score 0 12/12/2018 Sex and Gender Information Value Date Recorded Sex Assigned at Not on file Legal Sex Male 3:25 PM GENERAL CARGO CLERK Gender Identity Not on file Sexual [...] (Latest Contact Info) Description 10/23/2024 10:00 AM GENERAL CARGO CLERK Hospital Encounter [facility] Operating Room [address] [place] [address] [place] [address] [address] 10/23/2024 10:00 AM GENERAL CARGO CLERK - 10/23/2024 1:00 PM GENERAL CARGO CLERK Surgery [facility] Operating Room [address] [place] [address] [place] [address] [address] ARTHROPLASTY TOTAL KNEE LEFT Scheduled Procedures Name Priority Associated Diagnoses Date/Ti me ARTHROPLASTY TOTAL KNEE left knee osteoarthritis 10/23/2024 10:00 AM GENERAL CARGO CLERK ESOPHAGOGASTRODUODENOSCOPY Dysphagia, unspecified type documented as of this encounter Visit Diagnoses Not on filedocumented in this encounter Care Teams Pack Worker Supervisor Relationship Specialty [place] [address] [address] PCP - General 11/12/16 03/11/22 documented as of this encounter
--- OUTSIDE RECORDS SUMMARY | 2024-10-11 03:05 | XMS_ITS | Encounter Summary ---
Author Organization [facility] Address [address] [facility] [address] [place] [address] Care Team Providers Care Disabilities Caregiver Name Role Phone Santino Funk MD Primary Care Provider + Reason for Visit * Reason Comments Alzheimer's Disease Encounter Details Date Type Department Care Team (Late st Contact Info) Description 09/11/2021 1:30 PM CANVAS CUTTER MACHINE Office Visit [facility] [phone] [place] [address] [address], [place] [address] Nayan Mah[place], [place] [phone] [place] [address] [address], [place] [address] Alzheimer's disease (HCC) (Primary Dx); [...] on file Legal Sex Male 3:25 PM CANVAS CUTTER MACHINE Gender Identity Not on file Sexual Orientation Not on file documented as of this encounter Last Filed Vital Signs Vital Sign Reading Time Taken Comments Blood Pressure 120/78 09/11/2021 1:37 PM CANVAS CUTTER MACHINE Pulse 86 09/11/2021 1:37 PM CANVAS CUTTER MACHINE Temperature - - Respiratory Rate 12 09/11/2021 1:37 PM CANVAS CUTTER MACHINE Oxygen Saturation - - Inhaled Oxygen Concentration - - Weight 92.1 kg (203 lb 2.5 oz) 09/11/2021 1:37 P M CANVAS CUTTER MACHINE Height 180.3 cm (5' 11 ) 09/11/2021 1:37 PM CANVAS CUTTER MACHINE Body Mass Index 28.33 09/11/2021 1:37 PM CANVAS CUTTER MACHINE documented in this encounter Ordered Prescriptions Prescription [...] other complaints he is now working at [email or web address] Review of Systems Constitutional: Negative for activity [...] four extremities with downgoing toes bilaterally. Coordination Foahuj-th-[id number], rapid alternating movements and [id number]-ym-[id number] normal bilaterally without dysmetria. Gait Antalgic. Physical [...] mcg tablet, Take 150 mcg by mouth labour market economist before breakfast , Disp: , Rfl: ??? [...] fracture of condyle of left femur (CMS/HCC) ([facility]) 08/30/2018 ??? Closed fracture of left tibial [...] on file Housing Stability: Not on file AS CUTTER MACHINE documented in this encounter Plan of Treatment Upcoming Encounters Date Type Department Care Team (Latest Contact Info) Description 10/23/2024 10:00 AM CANVAS CUTTER MACHINE Hospital Encounter [facility] Operating Room [address] [place] [address] [place] [address] [address] 10/23/2024 10:00 AM CANVAS CUTTER MACHINE - 10/23/2024 1:00 PM [facility] Surgery [facility] Operating Room [address] [place] [address] [place] [address] [facility] [address] [place] [address] ARTHROPLASTY TOTAL KNEE LEFT Scheduled Procedures Name Priority Associated Diagnoses Date/Ti me ARTHROPLASTY TOTAL KNEE left knee osteoarthritis 10/23/2024 10:00 AM CANVAS CUTTER MACHINE ESOPHAGOGASTRODUODENOSCOPY Dysphagia, unspecified type documented as [...] COVID: Suspected 12/17/2021 12/17/2021 12/17/2021 10:19 PM CANVAS CUTTER MACHINE documented as of this encounter Care Teams Disabilities Caregiver Relationship Specialty [place] [address] [address] [facility] [place] [address] PCP - General 11/12/16 03/11/22 documented as of this encounter
--- OUTSIDE RECORDS SUMMARY | 2024-10-11 03:05 | XMS_ITS | Encounter Summary ---
Author Organization [facility] Address [address] [place] [address] Care Team Providers Care Director Audience Marketing Name Role Phone Santino Funk MD Primary Care Provider + Encounter Details Date Type Department Care Team (Late st Contact Info) Description 11/19/2021 Orders Only [facility] Testing Site - [facility]. Building [address] [place] [address] [address] [place] [address] [place] [address] [address] [place] [id number] Pre-procedure lab exam (Primary Dx) Social History [...] file Legal Sex Male 3:25 PM JEWELRY POLISHER Gender Identity Not on file Sexual Orientation Not on file documented as of this encounter Progress Notes * Jeannie Kearney MA - 11/19/2021 8:52 PM CST Testing types: Pre-procedure ?? Date of Px/chemo/treatment/placement/transfer 11/24/2021 ?? Testing site patient will be sent to: [facility] ?? Date testing requested: 11/21/2021 ?? Testing: COVID-19 RNA ?? Is this the first COVID-19 test for this patient? Unknown ?? Does the patient currently work in a healthcare facility with direct patient contact? Unknown ?? Is the patient a resident of a congregate care or living setting? Unknown LRY POLISHER documented in this encounter Plan of Treatment Upcoming Encounters Date Type Department Care Team (Latest Contact Info) Description 10/23/2024 10:00 AM JEWELRY POLISHER Hospital Encounter [facility] Operating Room [address] [place] [address] [place] [address] [address] 10/23/2024 10:00 AM JEWELRY POLISHER - 10/23/2024 1:00 PM JEWELRY POLISHER Surgery [facility] Operating Room [address] [place] [address] [place] [address] [address] ARTHROPLASTY TOTAL KNEE LEFT Scheduled Procedures Name Priority Associated Diagnoses Date/Ti me ARTHROPLASTY TOTAL KNEE left knee osteoarthritis 10/23/2024 10:00 AM JEWELRY POLISHER ESOPHAGOGASTRODUODENOSCOPY Dysphagia, unspecified type documented as of this encounter Results * COVID-19 Coronavirus RNA Nasopharyngeal (11/21/2021 3:00 PM JEWELRY POLISHER) COVID-19 RNA Not Detected MARVIN FISHER Comment: Interpretive Data Synonyms for this test include: PCR and NAAT . ??Testing performed by the [facility]. The 2019-Novel [...] on November 14, 2020. Testing performed by: [facility], [address], [address] First COVID-19 test? Unknown MARVIN Comment:Testing performed by : [facility], [address] [place] [address], [address] Employeed in healthcare? Unknown MARVIN Comment:Testing performed by : [facility], [address] [place] [address], [id number] Group care resident? Unknown MARVIN Comment:Testing performed by : [facility], [address] [place] [address], [address] Hospitalized? No MARVIN Comment:Testing performed by : [facility], [address], [address] Is patient in ICU? No MARVIN Comment:Testing performed by : [facility], [address] [place] [address], [id number] Symptomatic as defined by CDC? No MARVIN Comment:Testing performed by : [facility], [address] [place] [address], [address] Nasopharyngeal 11/21/2021 3: 00 PM JEWELRY POLISHER 11/21/2021 9:55 PM JEWELRY POLISHER Narrative MARVIN - 11/22/2021 3:28 AM JEWELRY POLISHER What is the reason for testing?->Screening prior to scheduled??procedure or surgery??(Batched) Giulia [facility] MICROBIOLOGY - GENERAL O RDERABLES Final Result MARVIN [address] [address] Department [place] [address] documented in this encounter Visit Diagnoses Diagnosis Pre-procedure lab exam- Primary Pre-procedural laboratory examination Pre-procedure lab exam Pre-procedural laboratory examination documented in this encounter Care Teams Director Audience Marketing Relationship Specialty [place] [address] [address] [facility] [address] [place] [address] PCP - General 11/12/16 03/11/22 documented as of this encounter
--- OUTSIDE RECORDS SUMMARY | 2024-10-11 03:06 | XMS_ITS | Encounter Summary ---
Author Organization [facility] Address [address] [place] [address] Care Team Providers Care Product Development Chemist Name Role Phone Santino Funk MD Primary Care Provider + Reason for Referral * Diagnostic Imaging (Routine) - Closed Specialty Diagnoses / Procedures Referred By Contac t Referred To Contact Radiology Diagnoses Pulmonary fibrosis, unspecified (HCC) Procedures CT Chest WO Contrast Santino Funk MD Phone: tel: fax: [address] [address] Referral ID Status Reason Start Date Expiration Date Visits Re quested Visits Authorized [id number] Closed 11/07/2019 05/18/2021 1 1 CTOR SEARCH Reason for Visit * Diagnostic Imaging (Routine) - Closed Specialty Diagnoses / Procedures Referred By Contac t Referred To Contact Radiology Diagnoses Pulmonary fibrosis, unspecified (HCC) Procedures CT Chest WO Contrast Santino Funk MD Phone: tel: fax: [address] [address] Referral ID Status Reason Start Date Expiration Date Visits Re quested Visits Authorized [id number] Closed 11/07/2019 05/18/2021 1 1 Encounter Details Date Type Department Care Team (Latest Contact Info) Description 11/09/2019 10:32 AM DIRECTOR SEARCH - 11/09/2019 11:59 PM DIRECTOR SEARCH Hospital Encounter [facility] Imaging and Radiology [address] [place] [address] [place] [address] [facility] [place] [address] Pulmonary fibrosis, unspecified (CMS/HCC) Discharge [...] file Legal Sex Male 3:25 PM DIRECTOR SEARCH Gender Identity Not on file Sexual Orientation [...] AM [facility] Hospital Encounter [facility] Operating Room [address] [place] [address] [place] [address] [address] 10/23/2024 10:00 AM DIRECTOR SEARCH - 10/23/2024 1:00 PM [facility] Surgery [facility] Operating Room [address] [place] [address] [place] [address] [address] ARTHROPLASTY TOTAL KNEE LEFT Scheduled Procedures Name Priority Associated Diagnoses Date/Ti me ARTHROPLASTY TOTAL KNEE left knee osteoarthritis 10/23/2024 10:00 AM DIRECTOR SEARCH ESOPHAGOGASTRODUODENOSCOPY Dysphagia, unspecified type documented as of this encounter Procedures Procedure Name Priority Date/Time Associated Diagnosis Comments CT CHEST WO CONTRAST Schedule Routine, Read Routine (OP Routine) 11/09/2019 11:14 AM DIRECTOR SEARCH Pulmonary fibrosis, unspecified (CMS/HCC) documented in this encounter Results * CT Chest WO Contrast (11/09/2019 11:14 AM DIRECTOR SEARCH) Anatomical Region Laterality Modality Body N/A Computed Tomogra phy 11/09/2019 2:04 PM DIRECTOR SEARCH Impressions 11/09/2019 2:26 PM DIRECTOR SEARCH LEFT LUNG VOLUME LOSS WITH DIAPHRAGMATIC ELEVATION AND LEFT BASAL SUBSEGMENTAL ATELECTASIS. POSTOPERATIVE CHANGE OF THE GE JUNCTION WITH SMALL HIATAL HERNIA. 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 RECOMMEND ULTRASOUND. NO ACUTE THORACIC PATHOLOGY. Electronically signed by: Vijaya Alegre M.D. Narrative 11/09/2019 2:26 PM DIRECTOR SEARCH Examination: CT CHEST WO CONTRAST Date: 11/09/2019 [...] by: Vijaya Alegre M.D. Santino Funk MD [facility] CT PROCEDURES Final Result documented in this encounter Visit Diagnoses Diagnosis Pulmonary fibrosis, unspecified (HCC) documented in this encounter Care Teams Product Development Chemist Relationship Specialty [place] [address] [address] PCP - General 11/12/16 03/11/22 documented as of this encounter
--- OUTSIDE RECORDS SUMMARY | 2024-10-11 03:06 | XMS_ITS | Encounter Summary ---
Author Organization [facility] Healthcare Address [address] [place] [address] Care Team Providers Care Baker Pie Name Role Phone Santino Funk MD Primary Care Provider + Encounter Details Date Type Department Care Team (Late st Contact Info) Description 11/20/2019 Telephone [facility] Radiology [address] [place] [address] Clara Brice, RN Social History Tobacco Use Types Packs/Day Years Used Date Smoking Tobacco: Former Smokeless Tobacco: Never Alcohol Use Standard Drinks/Week Comments Yes 0 (1 standard drink = 0.6 oz pur e alcohol) PHQ-2 Answer Date Recorded PHQ-2 Score 0 12/12/2018 Sex and Gender Information Value Date Recorded Sex Assigned at Not on file Legal Sex Male 3:25 PM CERTIFIED REAL ESTATE APPRAISER Gender Identity Not on file Sexual Orientation Not on file documented as of this encounter Miscellaneous Notes * Telephone Encounter - Clara Brice RN - 11/20/2019 9:44 AM CST Spoke to Jacquie---Pt scheduled 11-27-19 @ 1430 for Lt thyroid nodule bx. Please instruct pt to arrive[facility] fl[facility] @ 1400 to register--no prep IFIED REAL ESTATE APPRAISER documented in this encounter Plan of Treatment Upcoming Encounters Date Type Department Care Team (Latest Contact Info) Description 10/23/2024 10:00 AM CERTIFIED REAL ESTATE APPRAISER Hospital Encounter [facility] Operating Room [address] [place] [address] [place] [address] [facility] [address] [place] [address] 10/23/2024 10:00 AM CERTIFIED REAL ESTATE APPRAISER - 10/23/2024 1:00 PM CERTIFIED REAL ESTATE APPRAISER Surgery [facility] Operating Room [address] [place] [address] [place] [address] [address] ARTHROPLASTY TOTAL KNEE LEFT Scheduled Procedures Name Priority Associated Diagnoses Date/Ti me ARTHROPLASTY TOTAL KNEE left knee osteoarthritis 10/23/2024 10:00 AM CERTIFIED REAL ESTATE APPRAISER ESOPHAGOGASTRODUODENOSCOPY Dysphagia, unspecified type documented as of this encounter Visit Diagnoses Not on filedocumented in this encounter Care Teams Baker Pie Relationship Specialty [place] [address] [facility] [place] [address] PCP - General 11/12/16 03/11/22 documented as of this encounter
--- OUTSIDE RECORDS SUMMARY | 2024-10-11 03:06 | XMS_ITS | Encounter Summary ---
Author Organization [facility] Address [address] [place] [address] Care Team Providers Care Back Filler Operator Name Role Phone Santino Funk MD Primary Care Provider + Reason for Referral * Diagnostic Imaging (Routine) - Closed Specialty Diagnoses / Procedures Referred By Contac t Referred To Contact Diagnoses Cough Procedures XR Chest Pa Lateral 2 Views Santino Funk MD Phone: tel: fax: [address] [phone] Referral ID Status Reason Start Date Expiration Date Visits Re quested Visits Authorized [id number] Closed 11/06/2019 05/17/2021 1 1 ERN GENERATOR OPERATOR Reason for Visit * Diagnostic Imaging (Routine) - Closed Specialty Diagnoses / Procedures Referred By Contac t Referred To Contact Diagnoses Cough Procedures XR Chest Pa Lateral 2 Views Santino Funk MD Phone: tel: fax: [address] [phone] Referral ID Status Reason Start Date Expiration Date Visits Re quested Visits Authorized [id number] Closed 11/06/2019 05/17/2021 1 1 Encounter Details Date Type Department Care Team (Latest Contact Info) Description 11/06/2019 11:45 AM PATTERN GENERATOR OPERATOR - 11/06/2019 11:59 PM PATTERN GENERATOR OPERATOR Hospital Encounter [facility] Diagnostic Imaging [address] [place] [address] [place] [address] [facility] [address] [place] [address] Cough Discharge Disposition: Discharge to home or [...] on file Legal Sex Male 3:25 PM PATTERN GENERATOR OPERATOR Gender Identity Not on file Sexual [...] (Latest Contact Info) Description 10/23/2024 10:00 AM PATTERN GENERATOR OPERATOR Hospital Encounter [facility] Operating Room [address] [place] [address] [place] [address] [address] 10/23/2024 10:00 AM PATTERN GENERATOR OPERATOR - 10/23/2024 1:00 PM [facility] Surgery [facility] Operating Room [address] [place] [address] [place] [address] [address] ARTHROPLASTY TOTAL KNEE LEFT Scheduled Procedures Name Priority Associated Diagnoses Date/Ti me ARTHROPLASTY TOTAL KNEE left knee osteoarthritis 10/23/2024 10:00 AM PATTERN GENERATOR OPERATOR ESOPHAGOGASTRODUODENOSCOPY Dysphagia, unspecified type documented as of this encounter Procedures Procedure Name Priority Date/Time Associated Diagnosis Comments XR CHEST PA LATERAL 2 VIEWS Schedule Routine, Read Routine (OP Routine) 11/06/2019 11:56 AM PATTERN GENERATOR OPERATOR Cough documented in this encounter Results * XR Chest Pa Lateral 2 Views (11/06/2019 11:56 AM PATTERN GENERATOR OPERATOR) Anatomical Region Laterality Modality Body, Chest N/A Computed Radiogr aphy 11/06/2019 12:0 3 PM PATTERN GENERATOR OPERATOR Impressions 11/06/2019 12:04 PM PATTERN GENERATOR OPERATOR OPACIFICATION OF THE LEFT LUNG BASE AND COSTOPHRENIC ANGLE INDETERMINATE AGE. ??POSTSURGICAL CHANGES POSTERIOR MEDIASTINUM. Electronically signed by: Beka Draper M.D. Narrative 11/06/2019 12:04 PM PATTERN GENERATOR OPERATOR EXAMINATION: XR CHEST PA LATERAL 2 VIEWS [...] Cough documented in this encounter Care Teams Back Filler Operator Relationship Specialty [place] [address] [facility] [place] [address] PCP - General 11/12/16 03/11/22 documented as of this encounter
--- OUTSIDE RECORDS SUMMARY | 2024-10-11 03:06 | XMS_ITS | Encounter Summary ---
Author Organization [facility] Healthcare Address [address] [place] [address] Care Team Providers Care Production Truck Driver Name Role Phone Santino Funk MD Primary Care Provider + Encounter Details Date Type Department Care Team (Late st Contact Info) Description 12/28/2019 9:00 AM CDT - 12/28/2019 12:55 PM CDT Surgery [facility] Operating Room [address] [place] [address] Saqib Henry MD [facility] [address] [place] [address] THYROIDECTOMY - TOTAL Surgery Details Date/Time Status Location OR Service Patient Class Case Class Case Type Trauma Case? 12/28/2019 9:00 AM Posted [facility] OR POD 5 219 Otolaryngology Surgery [...] on file Legal Sex Male 3:25 PM ASPHALT TILE FLOOR LAYER Gender Identity Not on file Sexual [...] Care Physician at Discharge: Santino Funk MD [phone] Admission Date: 12/28/2019 Discharge Date: 12/30/2019 Admission Location: [facility] Problems/Diagnoses: Principal Problem: Goiter Resolved Problems: No [...] hours. Please call Carolyne Prater at the [facility] next week to get an appointment for drain removal. The number to call is [phone]. The drain must be putting out under [...] Henry on 01/07 at 10:15am. Please call [phone] to confirm your follow up appointment. Please follow-up with your primary care provider for management of your thyroid supplementation. Questions: If you have any concerns or questions, or develop worrisome symptoms such as worsening pain or swelling, bleeding, fever, or vomiting, call your doctor. Use [phone] if you are calling during weekday business hours (8am-5pm Wednesday through Wednesday), otherwise call [phone] and ask for the ENT resident utilization coordinator. Discharge Medications: Current Medications TAKE these medications [...] 1 tablet (150 mcg total) by mouth char belt operator before breakfast Commonly known as: SYNTHROID MUCINEX [...] Medicine, Geriatric Medicine Relationship: PCP - General [address] [place] [id number] Next Steps: Follow up Cosigned by Saqib [...] hours. Please call Carolyne Prater at the [facility] next week to get an appointment for drain removal. The number to call is [phone]. The drain must be putting out under [...] Henry on 01/07 at 10:15am. Please call [phone] to confirm your follow up appointment. Please follow-up with your primary care provider for management of your thyroid supplementation. Questions: If you have any concerns or questions, or develop worrisome symptoms such as worsening pain or swelling, bleeding, fever, or vomiting, call your doctor. Use [phone] if you are calling during weekday business hours (8am-5pm Anthony through Wednesday), otherwise call [phone] and ask for the ENT resident utilization coordinator. documented in this encounter Medications at Time [...] 1 tablet (150 mcg total) by mouth char belt operator before breakfast 60 tablet 1 12/31/2019 0 [...] 1 tablet (150 mcg total) by mouth char belt operator before breakfast 60 tablet 1 12/31/2019 0 [...] Obtained From Patient Referral Data Referral Source Awning Erector Referral Reason Discharge Planning Prior to Admission Primary Caregiver Self Support System Spouse/Significant Other Support system contact info (name, phone, availablity) Alon Gtz SPOUSE [phone] Home Care Services No Durable Medical Equipment [...] follow for planning and referrals as needed. [phone]. Spouse to provide ride home * Ger [...] Saqib Henry MD - 12/04/2019 2:30 PM ASPHALT TILE FLOOR LAYER [facility] Department of Otolaryngology Division of Head and Neck Surgery 12/04/2019 Gunjan Gtz 1944 [id number] Referred by: Dr. Santino Mcgarry Chief Complaint: [...] file Gets together: Not on file Attends mu-ism service: Not on file Active member of [...] substernal total thyroidectomy Saqib Henry MD PhD Funeral Arrangement Director Attending, Head and Neck Surgery Department of Otolaryngology [facility] [phone] (Clinical nurse Jacquie Hensley RN) Pager [phone] ALT TILE FLOOR LAYER documented in this encounter Miscellaneous Notes [...] of the thyroid that was removed, 10 Maltese drainwas placed within the bed and secured [...] Resident - Assisting Anesthesiologist: Elda Watts MD CHECKER: Fabi Thomason CRNA; Portia Tanner CRNA Student Nurse Inside Account Representative: RASHID Arguelles Laborer Livestock: rPem Woodruff RN Laborer Livestock Relief: Hanna Pepe RN Scrub: Madie Jacobo [...] (Latest Contact Info) Description 10/23/2024 10:00 AM ASPHALT TILE FLOOR LAYER Hospital Encounter [facility] Operating Room [address] [place] [address] [place] [id number] [place] [address] 10/23/2024 10:00 AM ASPHALT TILE FLOOR LAYER - 10/23/2024 1:00 PM ASPHALT TILE FLOOR LAYER Surgery [facility] Operating Room [address] [place] [address] [place] [address] [address] ARTHROPLASTY TOTAL KNEE LEFT Scheduled Procedures Name Priority Associated Diagnoses Date/Ti me ARTHROPLASTY TOTAL KNEE left knee osteoarthritis 10/23/2024 10:00 AM ASPHALT TILE FLOOR LAYER ESOPHAGOGASTRODUODENOSCOPY Dysphagia, unspecified type documented as [...] Sodium 139 135 - 145 mmol/L [facility] Potassium, pl 4.5 3.3 - 4.9 mmol/L [facility] Chloride 105 97 - 110 mmol/L [facility] CO2 25 22 - 32 mmol/L [facility] Anion gap 9 2 - 15 mmol/L [facility] BUN 15 8 - 25 mg/dL [facility] Creatinine 1.21 0.80 - 1.30 mg/dL [facility] Glucose 164 70 - 199 mg/dL [facility] Comment: Interpretive Data Fasting glucose [...] 2017. Calcium 8.5 8.5 - 10.3 mg/dL [facility] Phosphorus, pl 2.3 2.3 - 4.5 mg/dL [facility] Albumin 3.6 3.5 - 5.0 g/dL [facility] Blood specimen (specimen) 12/29/2019 2:38 AM CDT 12/29/2019 2:59 AM CDT Saqib Henry MD LAB BLOOD ORDERABLES F inal Result [facility] Department [place] [address] * (ABNORMAL) Renal function panel (12/28/2019 8:36 PM CDT) Sodium 137 135 - 145 mmol/L [facility] Potassium, pl 4.1 3.3 - 4.9 mmol/L [facility] Chloride 105 97 - 110 mmol/L [facility] CO2 26 22 - 32 mmol/L [facility] Anion gap 6 2 - 15 mmol/L [facility] BUN 15 8 - 25 mg/dL [facility] Creatinine 1.18 0.80 - 1.30 mg/dL [facility] Glucose 202(H) 70 - 199 mg/dL [facility] Comment: Interpretive Data Fasting glucose [...] 2017. Calcium 8.2(L) 8.5 - 10.3 mg/dL [facility] Phosphorus, pl 2.0(L) 2.3 - 4.5 mg/dL [facility] Albumin 3.5 3.5 - 5.0 g/dL [facility] Blood specimen (specimen) 12/28/2019 8:36 PM CDT 12/28/2019 8:51 PM CDT us Saqib Henry MD LAB BLOOD ORDERABLES F inal Result Performing Organization Address City/[facility]/ZIP Co de Phone Number [facility] Department [place] [address] * (ABNORMAL) Vitamin D 25 hydroxy (12/28/2019 2:20 PM CDT) Pathologist [facility] Vitamin D 25-OH 17(L) 30 - 80 ng/mL [facility] Blood specimen (specimen) 12/28/2019 2:20 PM CDT 12/28/2019 2:39 PM CDT Saqib Henry MD LAB BLOOD ORDERABLES F inal Result Performing Organization Address [facility] Co de Phone Number [facility] Department [place] [address] * Renal function panel (12/28/2019 2:20 PM CDT) [facility] Sodium 142 135 - 145 mmol/L [facility] Potassium, pl 4.3 3.3 - 4.9 mmol/L [facility] Chloride 107 97 - 110 mmol/L [facility] CO2 28 22 - 32 mmol/L [facility] Anion gap 7 2 - 15 mmol/L [facility] BUN 14 8 - 25 mg/dL [facility] Creatinine 1.17 0.80 - 1.30 mg/dL [facility] Glucose 113 70 - 199 mg/dL [facility] Comment: Interpretive Data Fasting glucose [...] 2017. Calcium 8.8 8.5 - 10.3 mg/dL [facility] Phosphorus, pl 2.5 2.3 - 4.5 mg/dL [facility] Albumin 3.8 3.5 - 5.0 g/dL [facility] Blood specimen (specimen) 12/28/2019 2:20 PM CDT 12/28/2019 2:39 PM CDT Saqib Henry MD LAB BLOOD ORDERABLES F inal Result Performing Organization Address City/[facility] Co de Phone Number [facility] [place] [address] * Magnesium (12/28/2019 2:20 PM CDT) Magnesium 1.8 1.4 - 2.5 mg/dL [facility] Blood specimen (specimen) 12/28/2019 2:20 PM CDT 12/28/2019 2:39 PM CDT Saqib Henry MD LAB BLOOD ORDERABLES F inal Result Performing Organization Address City/[facility] Co de Phone Number [facility] [place] [address] * PTH (12/28/2019 2:18 PM CDT) PTH 58 15 - 65 pg/mL [facility] Blood specimen (specimen) 12/28/2019 2:18 PM CDT 12/28/2019 3:05 PM CDT Saqib Henry MD LAB BLOOD ORDERABLES F inal Result Performing Organization Address [facility] [place] [address] * Surgical pathology (12/28/2019 12:49 PM CDT) Tissue (Thyroid) 12/28/2019 12:49 PM CDT Narrative PATHOLOGY [facility] - 01/03/2020 5:04 PM CDT EPIC results best viewed via link to PDF [facility] Nidia Frye Laboratory of [place] [address] SURGICAL PATHOLOGY REPORT FINAL Patient Name: ?? GUNJAN GTZ Gender: ??M : ??1944 (Age: 75) Address: ??[address] [place] [address] Hospital #: ??[id number] Taken:12/28/2019 Received:12/28/2019 Reported: 01/03/2020 Patient Type: [facility] Inpatient ?? Service: Surgery Location: [place] [address] Physician(s): ??Saqib Henry M.D., PH.D. Santino Funk M.D. MD Kostas Bearden M.D. Diagnosis: Thyroid, total thyroidectomy: ? 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/01/01/2020 20:17 By this signature, I attest [...] separate fragment inked blue. Labeled A1 - branch customer service representative left upper pole; A2 - branch customer service representative left upper pole nodule; A3 to A5 - branch customer service representative sections of left dominant nodule periphery; A6 - branch customer service representative left inferior pole; A7 - isthmus nodule (ends not submitted); A8 - branch customer service representative right superior lobe; A9 - right mid lobe nodule (ends not submitted); A10 - branch customer service representative right inferior nodule (ends not submitted); A11 ??branch customer service representative separate fragment. Jar 0. ?? [facility]/12/29/2019 14:38 Gross Resident:Isra Collado MD By this signature, I attest that the above diagnosis is based upon my personal examination of the slides(and/or other material). The performance characteristics of some immunohistochemical stains, fluorescence in-situ hybridization tests and immunophenotyping by flow cytometry cited in this report (if any) were determined by the Surgical Pathology Department at [facility] as part of an ongoing software quality assurance engineer program and in compliance with federally [...] determined by the Surgical Pathology Department of [facility]. ??It has not been cleared or approved by the U. S. Food and Drug Administration. IMAGES AND SCANNED DOCUMENTS, IF INCLUDED, ONLY VIEWABLE IN PDF VERSION OF REPORT Saqib Henry MD LAB PATHOLOGY ORDERABL ES Final Result PATHOLOGY [facility] 3rd [place], [place] [phone] documented in this encounter Visit Diagnoses Diagnosis [...] 2 puff, inhalation, Every 4 hours PRN (group therapist), wheezing, Starting on Wed12/28/19 at 1719, Phase [...] 2 puff, inhalation, Every 4 hours PRN (group therapist), wheezing, Starting on Jo 12/28/19 at 1719, [...] - Provider: Simi Reina RN) influenza trivalent [id number] (FLUZONE HIGH DOSE) 180 mcg/0.5 mL vaccine [...] 12/09 documented in this encounter Care Teams Production Truck Driver Relationship Specialty [place] [address] [address] PCP - General 11/12/16 03/11/22 documented as of this encounter
--- OUTSIDE RECORDS SUMMARY | 2024-10-11 03:06 | XMS_ITS | Encounter Summary ---
Author Organization [facility] Medical Group Address [address] [place] [address] Care Team Providers Care Proof Reader Name Role Phone Santino Funk MD Primary Care Provider + Reason for Visit * Reason Comments Post-op Post-op Encounter Details Date Type Department Care Team (Latest Contact Info) Description 12/07/2018 1:00 PM ASSISTANT REAL ESTATE MANAGER Office Visit [facility] [address] [address] [place] [address] [facility] [address] [place] [address] Primary osteoarthritis of left knee [...] file Legal Sex Male 3:25 PM ASSISTANT REAL ESTATE MANAGER Gender Identity Not on file Sexual Orientation Not on file documented as of this encounter Last Filed Vital Signs Vital Sign Reading Time Taken Comments Blood Pressure - - Pulse - - Temperature - - Respiratory Rate - - Oxygen Saturation - - Inhaled Oxygen Concentration - - Weight 95.7 kg (211 lb) 12/07/2018 1:13 PM ASSISTANT REAL ESTATE MANAGER Height 182.9 cm (6') 12/07/2018 1:13 PM ASSISTANT REAL ESTATE MANAGER Body Mass Index 28.62 12/07/2018 1:13 PM ASSISTANT REAL ESTATE MANAGER documented in this encounter Ordered Prescriptions Prescription [...] in October demonstrate varus arthritis with near zlkz-in-tfua contact medially in each knee. Postsurgical changes [...] George Sepulveda MD at 12/07/2018 2:14 PM ASSISTANT REAL ESTATE MANAGER STANT REAL ESTATE MANAGER STANT REAL ESTATE MANAGER documented in this encounter Plan of Treatment Upcoming Encounters Date Type Department Care Team (Latest Contact Info) Description 10/23/2024 10:00 AM ASSISTANT REAL ESTATE MANAGER Hospital Encounter [facility] Operating Room [address] [place] [address] [place] [address] [facility] [address] [place], [place] [id number] 10/23/2024 10:00 AM ASSISTANT REAL ESTATE MANAGER - 10/23/2024 1:00 PM ASSISTANT REAL ESTATE MANAGER Surgery [facility] Operating Room [address] [place] [address] [place] [address] [id number] ARTHROPLASTY TOTAL KNEE LEFT Scheduled Procedures Name Priority Associated Diagnoses Date/Ti me ARTHROPLASTY TOTAL KNEE left knee osteoarthritis 10/23/2024 10:00 AM ASSISTANT REAL ESTATE MANAGER ESOPHAGOGASTRODUODENOSCOPY Dysphagia, unspecified type documented as of this encounter Visit Diagnoses Diagnosis Primary osteoarthritis of left knee- Primary Primary osteoarthritis of right knee documented in this encounter Historical Medications * This list may reflect changes made after this encounter. ciprofloxacin (CIPRO) 500 mg tablet TK 1 T PO BID 0 12/02/2018 12/14/2019 added in this encounter Care Teams Proof Reader Relationship Specialty [place] [address] [facility] [address] [place] [address] PCP - General 11/12/16 03/11/22 documented as of this encounter
--- OUTSIDE RECORDS SUMMARY | 2024-10-11 03:06 | XMS_ITS | Encounter Summary ---
Author Organization [facility] Address [address] [place] [address] Phone Care Team Providers Care Blanker Operator Name Role Phone Santino Funk MD Primary Care Provider + Encounter Details Date Type Department Care Team (Late st Contact Info) Description 01/08/2020 10:15 AM CDT Office Visit [facility] - [facility] [address] [facility] 11th [place] [address] [place] [phone] Saqib Henry MD [address] [place], [place] [phone] Thyroid goiter (Primary Dx) Social History Tobacco Use Types Packs/Day Years Used Date Smoking Tobacco: Former Cigarettes 1 966 - 5220 Smokeless Tobacco: Never Alcohol Use Standard Drinks/Week Comments Yes 1 (1 standard drink = 0.6 oz pur e alcohol) PHQ-2 Answer Date Recorded PHQ-2 Score 0 12/12/2018 Sex and Gender Information Value Date Recorded Sex Assigned at Not on file Legal Sex Male 3:25 PM SHRIMP PEELER Gender Identity Not on file Sexual Orientation [...] Henry MD - 01/08/2020 10:15 AM CDT [facility] Department of Otolaryngology Division of Head and Neck Surgery 01/08/2020 Abrahan Gtz 1944 [id number] Referred by: Dr. Santino Mcgarry Chief Complaint: [...] HERNIA REPAIR 1980 Hiatal Hernia repair ??? [place] ABDOMEN [facility] PROC UNLISTED Hernia Repair - [...] file Gets together: Not on file Attends sabianism service: Not on file Active member of [...] 1 tablet (150 mcg total) by mouth director recreation before breakfast 60 tablet 1 ??? omeprazole [...] in 3 months Saqib Henry MD PhD Coating Mixer Supervisor Attending, Head and Neck Surgery Department of Otolaryngology [facility] [phone] (Clinical nurse Jacquie Hensley RN) Pager [phone] documented in this encounter Plan of Treatment Upcoming Encounters Date Type Department Care Team (Latest Contact Info) Description 10/23/2024 10:00 AM SHRIMP PEELER Hospital Encounter [facility] Operating Room [address] [place] [address] [place] [address] [id number] 10/23/2024 10:00 AM SHRIMP PEELER - 10/23/2024 1:00 PM SHRIMP PEELER Surgery [facility] Operating Room [address] [place] [address] [place] [address] [facility] [address] [place] [address] ARTHROPLASTY TOTAL KNEE LEFT Scheduled Procedures Name Priority Associated Diagnoses Date/Ti me ARTHROPLASTY TOTAL KNEE left knee osteoarthritis 10/23/2024 10:00 AM SHRIMP PEELER ESOPHAGOGASTRODUODENOSCOPY Dysphagia, unspecified type documented as of this encounter Visit Diagnoses Diagnosis Thyroid goiter- Primary Goiter, unspecified documented in this encounter Care Teams Blanker Operator Relationship Specialty [place] [address] [facility] [address] [place] [address] PCP - General 11/12/16 03/11/22 documented as of this encounter
--- OUTSIDE RECORDS SUMMARY | 2024-10-11 03:06 | XMS_ITS | Encounter Summary ---
Author Organization [facility] Care Team Providers Care Lightning Rod Installer Name Role Phone Santino Funk MD Primary [...] on file Legal Sex Male 3:25 PM CANTEEN OPERATOR Gender Identity Not on file Sexual [...] (Latest Contact Info) Description 10/23/2024 10:00 AM CANTEEN OPERATOR Hospital Encounter [facility] Operating Room [address] [place] [address] [place] [address] [id number] 10/23/2024 10:00 AM CANTEEN OPERATOR - 10/23/2024 1:00 PM CANTEEN OPERATOR Surgery [facility] Operating Room [address] [place] [address] [place] [address] [facility] [address] [place] [address] ARTHROPLASTY TOTAL KNEE LEFT Scheduled Procedures Name Priority Associated Diagnoses Date/Ti me ARTHROPLASTY TOTAL KNEE left knee osteoarthritis 10/23/2024 10:00 AM CANTEEN OPERATOR ESOPHAGOGASTRODUODENOSCOPY Dysphagia, unspecified type documented as of this encounter Visit Diagnoses Not on filedocumented in this encounter Care Teams Lightning Rod Installer Relationship Specialty [place] [address] [facility] [address] [place] [address] PCP - General 11/12/16 03/11/22 documented as of this encounter
--- OUTSIDE RECORDS SUMMARY | 2024-10-11 03:06 | XMS_ITS | Encounter Summary ---
Author Organization [facility] Address [address] [place] [address] Care Team Providers Care Adult Education Professional Name Role Phone Santino Funk MD Primary Care Provider + Reason for Visit * Reason Comments Post-op Post-op Encounter Details Date Type Department Care Team (Latest Contact Info) Description 11/22/2018 8:15 AM DRIVER UTILITY WORKER Office Visit [facility] [address] [facility] [address] [place] [address] [place] [address] [facility] [address] [place] [address] Primary osteoarthritis of left knee [...] on file Legal Sex Male 3:25 PM DRIVER UTILITY WORKER Gender Identity Not on file Sexual Orientation Not on file documented as of this encounter Last Filed Vital Signs Vital Sign Reading Time Taken Comments Blood Pressure - - Pulse - - Temperature - - Respiratory Rate - - Oxygen Saturation - - Inhaled Oxygen Concentration - - Weight 98 kg (216 lb) 11/22/2018 8:33 AM DRIVER UTILITY WORKER Height 182.9 cm (6') 11/22/2018 8:33 AM DRIVER UTILITY WORKER Body Mass Index 29.29 11/22/2018 8:33 AM DRIVER UTILITY WORKER documented in this encounter Progress Notes * [...] follow up here as needed. [facility] UTILITY WORKER documented in this encounter Plan of Treatment Upcoming Encounters Date Type Department Care Team (Latest Contact Info) Description 10/23/2024 10:00 AM DRIVER UTILITY WORKER Hospital Encounter [facility] Operating Room [address] [place] [address] [place] [address] [address] 10/23/2024 10:00 AM DRIVER UTILITY WORKER - 10/23/2024 1:00 PM DRIVER UTILITY WORKER Surgery [facility] Operating Room [address] [place] [address] [place] [address] [address] ARTHROPLASTY TOTAL KNEE LEFT Scheduled Procedures Name Priority Associated Diagnoses Date/Ti me ARTHROPLASTY TOTAL KNEE left knee osteoarthritis 10/23/2024 10:00 AM DRIVER UTILITY WORKER ESOPHAGOGASTRODUODENOSCOPY Dysphagia, unspecified type documented as [...] 12/14/2019 added in this encounter Care Teams Adult Education Professional Relationship Specialty [place] [address] [facility] [address] [place] [address] PCP - General 11/12/16 03/11/22 documented as of this encounter
--- OUTSIDE RECORDS SUMMARY | 2024-10-11 03:06 | XMS_ITS | Encounter Summary ---
Author Organization [facility] Healthcare Address [address] [place] [address] Care Team Providers Care Event Specialist Food Demonstrator Name Role Phone Santino Funk MD Primary Care Provider + Reason for Visit * Reason Comments Tingling Encounter Details Date Type Department Care Team (Late st Contact Info) Description 01/01/2020 12:25 AM CDT - 01/01/2020 3:35 AM CDT Emergency [facility] Emergency Department [address] [place] [address] Dioni Diaz MD [address] [place] [address] History of thyroidectomy (Primary Dx); [...] file Legal Sex Male 3:25 PM RISK REDUCTION COUNSELOR Gender Identity Not on file Sexual Orientation [...] Care Everywhere. 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 [place] ABDOMEN SURGERY PROC UNLISTED Hernia Repair - [...] RN - 01/01/2020 12:25 AM CDT Bed: [facility] Expected date: Expected time: Means of arrival: [...] previous history of HTN. Family history of MS's, denies CP documented in this encounter Miscellaneous Notes * ED Procedure Note - Liz Enriquez MD - 01/01/2020 12:13 AM CDT Associated Order(s): ECG 12 lead Procedure ECG 12 lead Date/Time: 01/01/2020 12:13 AM Performed by: iLz Enriquez MD Authorized by: Jong Ward MD [...] Contact Info) Description 10/23/2024 10:00 AM RISK REDUCTION COUNSELOR Hospital Encounter [facility] Operating Room [id number] [place] [address] [place] [address] [address] 10/23/2024 10:00 AM RISK REDUCTION COUNSELOR - 10/23/2024 1:00 PM RISK REDUCTION COUNSELOR Surgery [facility] Operating Room [address] [place] [address] [place] [address] [id number] ARTHROPLASTY TOTAL KNEE LEFT Scheduled Procedures Name Priority Associated Diagnoses Date/Ti me ARTHROPLASTY TOTAL KNEE left knee osteoarthritis 10/23/2024 10:00 AM RISK REDUCTION COUNSELOR ESOPHAGOGASTRODUODENOSCOPY Dysphagia, unspecified type documented as of [...] Phosphorus (01/01/2020 12:36 AM CDT) Pathologist [facility] Phosphorus, pl 3.1 2.3 - 4.5 mg/dL [facility] Blood specimen (specimen) 01/01/2020 12:36 AM CDT 01/01/2020 12:43 AM CDT Notinfile Unknown LAB BLOOD ORDERABLES Final Res ult [facility] [place] [address] * (ABNORMAL) Differential, auto (01/01/2020 12:36 AM CDT) Pathologist [facility] Neutrophil abs 3.4 1.7 - 6.5 K/cumm [facility] Imm gran abs 0.0 0.0 - 0.1 K/cumm [facility] Lymphocyte abs 2.2 0.8 - 3.3 K/cumm [facility] Monocyte abs 0.9(H) 0.2 - 0.8 K/cumm [facility] Eosinophil abs 0.7(H) 0.0 - 0.5 K/cumm [facility] Basophil abs 0.0 0.0 - 0.1 K/cumm [facility] Neutrophil pct 46.4 % [facility] Comment: Interpretive Data Percent cell count reference ranges are not reported, since discordance with absolute values may lead to misinterpretation of CBC data. Current Interpretive Data was last revised on 2018. Imm gran pct 0.4 % [facility] Comment: Interpretive Data Percent cell count reference ranges are not reported, since discordance with absolute values may lead to misinterpretation of CBC data. Current Interpretive Data was last revised on 2018. Lymphocyte pct 30.9 % [facility] Comment: Interpretive Data Percent cell count reference ranges are not reported, since discordance with absolute values may lead to misinterpretation of CBC data. Current Interpretive Data was last revised on 2018. Monocyte pct 12.5 % [facility] Comment: Interpretive Data Percent cell count reference ranges are not reported, since discordance with absolute values may lead to misinterpretation of CBC data. Current Interpretive Data was last revised on 2018. Eosinophil pct 9.2 % [facility] Comment: Interpretive Data Percent cell count reference ranges are not reported, since discordance with absolute values may lead to misinterpretation of CBC data. Current Interpretive Data was last revised on 2018. Basophil pct 0.6 % [facility] Comment: Interpretive Data Percent cell count reference ranges are not reported, since discordance with absolute values may lead to misinterpretation of CBC data. Current Interpretive Data was last revised on 2018. Blood specimen (specimen) 01/01/2020 12:36 AM CDT 01/01/2020 12:53 AM CDT Dioni Diaz MD LAB BLOOD ORDERA BLES Final Result Performing Organization Address City/[facility]/ZIP Co de Phone Number [facility] [place] [address] * PTH (01/01/2020 12:36 AM CDT) PTH 49 15 - 65 pg/mL [facility] Blood specimen (specimen) 01/01/2020 12:36 AM CDT 01/01/2020 12:54 AM CDT Narrative [facility] - 01/01/2020 1:16 AM CDT THE COLLECTION LOCATION IS Dioni Diaz MD LAB BLOOD ORDERA BLES Final Result [facility] [place] [address] * Magnesium (01/01/2020 12:36 AM CDT) Magnesium 1.9 1.4 - 2.5 mg/dL [facility] Blood specimen (specimen) 01/01/2020 12:36 AM CDT 01/01/2020 12:43 AM CDT Narrative [facility] - 01/01/2020 1:51 AM CDT THE COLLECTION LOCATION IS Dioni Diaz MD LAB BLOOD ORDERA BLES Final Result Performing Organization Address [facility] Co de Phone Number [facility] [place] [address] * Calcium, ionized (01/01/2020 12:36 AM CDT) [facility] Calcium, Ionized 4.52 4.50 - 5.10 mg/dL [facility] Blood specimen (specimen) 01/01/2020 12:36 AM CDT 01/01/2020 12:43 AM CDT Narrative [facility] - 01/01/2020 12:58 AM CDT THE COLLECTION LOCATION IS Dioni Diaz MD LAB BLOOD ORDERA BLES Final Result Performing Organization Address [facility] Co de Phone Number [facility] [place] [address] * TSH reflex to free T4 (01/01/2020 12:36 AM CDT) [facility] TSH 1.38 0.30 - 4.20 mcIUnit/mL [facility] Blood specimen (specimen) 01/01/2020 12:36 AM CDT 01/01/2020 12:43 AM CDT Narrative [facility] - 01/01/2020 1:56 AM CDT THE COLLECTION LOCATION IS Dioni Diaz MD LAB BLOOD ORDERA BLES Final Result Performing Organization Address City/[facility]/[place] [address] * Troponin I (01/01/2020 12:36 AM CDT) [facility] Troponin I <0.03 0.00 - 0.03 ng/mL [facility] Comment: Interpretive Data: Normal plasma Troponin I [...] for Troponin assay. References: 1. Clin Chem 2013;59:[id number] 2. Journal of the [place] [employer] 2012;60:1581-98 Current Interpretive Data Last Revised Date: 2018. Blood specimen (specimen) 01/01/2020 12:36 AM CDT 01/01/2020 12:43 AM CDT Narrative [facility] - 01/01/2020 1:51 AM CDT THE COLLECTION LOCATION IS Dioni Diaz MD LAB BLOOD ORDERA BLES Edited Result - Final [facility] [place] [address] * (ABNORMAL) CBC with auto differential (01/01/2020 12:36 AM CDT) WBC 7.3 3.8 - 9.9 K/cumm [facility] Hgb 14.9 13.0 - 17.5 g/dL [facility] Hct 44.6 38.9 - 50.3 % [facility] Plt 192 150 - 400 K/cumm [facility] MPV 10.7 9.1 - 12.3 fL [facility] RBC 4.44 4.30 - 5.80 M/cumm [facility] MCV 100.5(H) 81.3 - 96.4 fL [facility] MCH 33.6(H) 27.1 - 33.3 pg [facility] MCHC 33.4 32.3 - 35.7 g/dL [facility] RDW CV 13.2 11.1 - 14.9 % [facility] RDW SD 49.5(H) 35.7 - 48.1 fL [facility] NRBC abs 0.00 0.00 - 0.01 K/cumm [facility] Blood specimen (specimen) 01/01/2020 12:36 AM CDT 01/01/2020 12:53 AM CDT Narrative [facility] - 01/01/2020 12:59 AM CDT THE COLLECTION LOCATION IS Dioni Diaz MD LAB BLOOD ORDERA BLES Final Result [facility] Department [place] [address] * Basic metabolic panel (01/01/2020 12:36 AM CDT) Sodium 139 135 - 145 mmol/L [facility] Potassium, pl 4.3 3.3 - 4.9 mmol/L [facility] Chloride 105 97 - 110 mmol/L [facility] CO2 23 22 - 32 mmol/L [facility] Anion gap 11 2 - 15 mmol/L [facility] BUN 17 8 - 25 mg/dL [facility] Creatinine 1.17 0.80 - 1.30 mg/dL [facility] Glucose 112 70 - 199 mg/dL [facility] Comment: Interpretive Data Fasting glucose [...] 2017. Calcium 9.3 8.5 - 10.3 mg/dL [facility] Blood specimen (specimen) 01/01/2020 12:36 AM CDT 01/01/2020 12:43 AM CDT Narrative [facility] - 01/01/2020 1:51 AM CDT [facility] LOCATION IS Dioni Diaz MD LAB BLOOD ORDERA BLES Final Result [facility] [place] [address] * ECG 12-LEAD (01/01/2020 12:13 AM CDT) Narrative [facility] - 01/01/2020 12:13 AM CDT Liz Enriquez MD ? 01/01/2020 12:13 AM ECG 12 lead Date/Time: 01/01/2020 12:13 AM Performed by: Liz Enriquez MD Authorized by: Jong Wrad MD Rate: ??ECG rate: ??67 ??ECG rate [...] Dioni Diaz MD ECG ORDERABLES Final Result [facility] documented in this encounter Visit Diagnoses Diagnosis History of thyroidectomy- Primary Other postprocedural status Hypocalcemia Essential hypertension Unspecified essential hypertension documented in this encounter Orders Lab Orders Without Results Count Last Ordered D ate First Ordered Date PHOSPHORUS 1 01/01/2020 documented in this encounter Care Teams Event Specialist Food Demonstrator Relationship Specialty [place] [address] [facility] [place] [address] PCP - General 11/12/16 03/11/22 documented as of this encounter
--- OUTSIDE RECORDS SUMMARY | 2024-10-11 03:06 | XMS_ITS | Encounter Summary ---
Author Organization [facility] Healthcare Address [address] [place] [address] Care Team Providers Care Silver Steward Name Role Phone Santino Funk MD Primary Care Provider + Reason for Referral * (Routine) - Closed Specialty Diagnoses / Procedures Referred By Contac t Referred To Contact Diagnoses Transient ischemic attack (TIA) Left sided numbness Procedures Transthoracic Echo Complete W Doppler/[place] [address] [place] [address] Phone: tel: fax: [address] [phone] Referral ID Status Reason Start Date Expiration Date Visits Re quested Visits Authorized [id number] Closed 02/07/2020 08/18/2021 1 1 Reason for Visit * (Routine) - Closed Specialty Diagnoses / Procedures Referred By Contboone t Referred To Contact Diagnoses Transient ischemic attack (TIA) Left sided numbness Procedures Transthoracic Echo Complete W Doppler/[place] [address] [place] [id number] Phone: tel: fax: [address] [phone] Referral ID Status Reason Start Date Expiration Date Visits Re quested Visits Authorized [id number] Closed 02/07/2020 08/18/2021 1 1 Encounter Details Date Type Department Care Team (Latest Contact Info) Description 02/14/2020 7:55 AM CDT - 02/14/2020 9:49 AM CDT Hospital [facility] Non-invasive Cardiac Diagnostic Testing [address] [place] [address] [place] [address] [facility] [address] [place] [address] Transient ischemic attack (TIA); Left [...] file Legal Sex Male 3:25 PM BUSINESS REPORTER Gender Identity Not on file Sexual Orientation [...] 1 tablet (150 mcg total) 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 60 tablet 1 12/31/2019 [...] Contact Info) Description 10/23/2024 10:00 AM BUSINESS REPORTER Hospital Encounter [facility] Operating Room [id number] [place] [address] [place] [address] [phone] 10/23/2024 10:00 AM BUSINESS REPORTER - 10/23/2024 1:00 PM BUSINESS REPORTER Surgery [facility] Operating Room [address] [place] [address] [place] [address] [id number] ARTHROPLASTY TOTAL KNEE LEFT Scheduled Procedures Name Priority Associated Diagnoses Date/Ti me ARTHROPLASTY TOTAL KNEE left knee osteoarthritis 10/23/2024 10:00 AM BUSINESS REPORTER ESOPHAGOGASTRODUODENOSCOPY Dysphagia, unspecified type documented as of [...] AM CDT Narrative 02/14/2020 2:33 PM CDT [address] [address] Echocardiogram Report Patient Name: GUNJAN GTZ : [...] Procedure Note Carolyne Mendiola DO - 02/14/2020 [place] [address] Echocardiogram Report Patient Name: GUNJAN GTZ : [...] numbness documented in this encounter Care Teams Silver Steward Relationship Specialty [place] [address] [address] PCP - General 11/12/16 03/11/22 documented as of this encounter
--- OUTSIDE RECORDS SUMMARY | 2024-10-11 03:06 | XMS_ITS | Encounter Summary ---
Author Organization [facility] Healthcare Address [address] [place] [address] Care Team Providers Care Cue Worker Name Role Phone Santino Funk MD Primary Care Provider + Reason for Visit * Reason Comments Abdominal Pain started last night, couldn't have a BM, couldn't eat, OTC meds didn't work Nausea Constipation Encounter Details Date Type Department Care Team (Late st Contact Info) Description 12/10/2018 1:39 PM HEARING IMPAIRED TEACHER - 12/10/2018 4:[address] [facility] Emergency [facility] Emergency Department [address] [place] [address] [place] [address] [facility] [address] [place] [address] Constipation, unspecified constipation type (Primary Dx) Discharge [...] file Legal Sex Male 3:25 PM HEARING IMPAIRED TEACHER Gender Identity Not on file Sexual Orientation Not on file documented as of this encounter Last Filed Vital Signs Vital Sign Reading Time Taken Comments Blood Pressure 168/94 12/10/2018 3:45 PM HEARING IMPAIRED TEACHER Pulse 53 12/10/2018 3:45 PM HEARING IMPAIRED TEACHER Temperature 36.7 ??C (98.1 ??F) 12/10/2018 1:38 PM CS T Respiratory Rate 20 12/10/2018 1:38 PM HEARING IMPAIRED TEACHER Oxygen Saturation 97% 12/10/2018 3:45 PM HEARING IMPAIRED TEACHER Inhaled Oxygen Concentration - - Weight 99.8 kg (220 lb) 12/10/2018 1:38 PM HEARING IMPAIRED TEACHER Height 182.9 cm (6') 12/10/2018 1:38 PM HEARING IMPAIRED TEACHER Body Mass Index 29.84 12/10/2018 1:38 PM HEARING IMPAIRED TEACHER documented in this encounter Discharge Instructions * Discharge Instructions* Betina Bray MD - 12/10/2018 3:59 PM HEARING IMPAIRED TEACHER Drink plenty of fluids. Add more fiber to your diet. Take medications as prescribed ING IMPAIRED TEACHER * Attachments The following attachments cannot be sent through Care Everywhere. * Constipation (Adult) (Samoan) documented in this encounter Medications at Time [...] HERNIA REPAIR 1980 Hiatal Hernia repair ??? [place] ABDOMEN SURGERY PROC UNLISTED Hernia Repair - [...] which may reflect constipation. Electronically signed by: Arpna Martin M.D. ED Course as of Dec [...] and actions. Betina Bray MD 12/10/18 1601 ING IMPAIRED TEACHER documented in this encounter Plan of Treatment Upcoming Encounters Date Type Department Care Team (Latest Contact Info) Description 10/23/2024 10:00 AM HEARING IMPAIRED TEACHER Hospital Encounter [facility] Operating Room [address] [place] [address] [place] [address] [id number] 10/23/2024 10:00 AM HEARING IMPAIRED TEACHER - 10/23/2024 1:00 PM HEARING IMPAIRED TEACHER Surgery [facility] Operating Room [address] [place] [address] [place] [address] [facility] [address] [place], [place] [id number] ARTHROPLASTY TOTAL KNEE LEFT Scheduled Procedures Name Priority Associated Diagnoses Date/Ti me ARTHROPLASTY TOTAL KNEE left knee osteoarthritis 10/23/2024 10:00 AM HEARING IMPAIRED TEACHER ESOPHAGOGASTRODUODENOSCOPY Dysphagia, unspecified type documented as of this encounter Procedures Procedure Name Priority Date/Time Associated Diagnosis Comments XR ABDOMEN ERECT AND OR DECUBITS 2 VIEWS ED 12/10/2018 2:47 PM HEARING IMPAIRED TEACHER EGFR STAT 12/10/2018 2:35 PM HEARING IMPAIRED TEACHER DIFFERENTIAL AUTO STAT 12/10/2018 2:3 5 PM HEARING IMPAIRED TEACHER CBC WITH AUTO DIFFERENTIAL STAT 12/10/2018 2:35 PM HEARING IMPAIRED TEACHER LIPASE STAT 12/10/2018 2:35 PM HEARING IMPAIRED TEACHER COMPREHENSIVE METABOLIC PANEL STAT 12/10/2018 2:35 PM HEARING IMPAIRED TEACHER documented in this encounter Results * XR Abdomen Erect and or Decubitus 2 Views (12/10/2018 2:47 PM HEARING IMPAIRED TEACHER) Anatomical Region Laterality Modality Body, Abdomen N/A Computed Radiogr aphy 12/10/2018 3:13 PM HEARING IMPAIRED TEACHER Impressions 12/10/2018 3:15 PM HEARING IMPAIRED TEACHER Moderate amount of colonic stool is noted, which may reflect constipation. Electronically signed by: Arpan Martin M.D. Narrative 12/10/2018 3:15 PM HEARING IMPAIRED TEACHER RESULT: EXAMINATION: ABDOMINAL RADIOGRAPH, 1 VIEW Date: [...] Final Result * eGFR (12/10/2018 2:35 PM HEARING IMPAIRED TEACHER) eGFR 75 mL/min/1.7 3 m2 [facility] Comment: Interpretive Data Reference Interval Normal ?>/= 90 mL/min/1.73m2 Mildly decreased* ? 60 - 89 mL/min/1.73m2 Mildly to moderately decreased ?45 - 59 mL/min/1.73m2 Moderately to severely decreased ??30 - 44 mL/min/1.73m2 Severely decreased ?15 - 29 mL/min/1.73m2 Kidney Failure ?< 15 ??mL/min/1.73m2 *Relative to young adult level If -Colombian multiply value by 1.16. Estimated glomerular filtration [...] 2016. Blood specimen (specimen) 12/10/2018 2:35 PM HEARING IMPAIRED TEACHER 12/10/2018 2:42 PM HEARING IMPAIRED TEACHER Narrative [facility] - 12/10/2018 3:04 PM HEARING IMPAIRED TEACHER Betina Bray MD LAB BLOOD ORDERABLES nal Result [facility] [address] Department [place] [address] * Differential, auto (12/10/2018 2:35 PM HEARING IMPAIRED TEACHER) Neutrophil abs 5.3 1.7 - 6.5 K/cumm [facility] Imm gran abs 0.0 0.0 - 0.1 K/cumm [facility] Lymphocyte abs 2.2 0.8 - 3.3 K/cumm [facility] Monocyte abs 0.6 0.2 - 0.8 K/cumm [facility] Eosinophil abs 0.1 0.0 - 0.5 K/cumm [facility] Basophil abs 0.1 0.0 - 0.1 K/cumm [facility] Neutrophil pct 64.2 % [facility] Comment: Interpretive Data Percent cell count reference ranges are not reported, since discordance with absolute values may lead to misinterpretation of CBC data. Current Interpretive Data was last revised on 2018. Imm gran pct 0.4 % [facility] Comment: Interpretive Data Percent cell count reference ranges are not reported, since discordance with absolute values may lead to misinterpretation of CBC data. Current Interpretive Data was last revised on 2018. Lymphocyte pct 26.4 % [facility] Comment: Interpretive Data Percent cell count reference ranges are not reported, since discordance with absolute values may lead to misinterpretation of CBC data. Current Interpretive Data was last revised on 2018. Monocyte pct 7.4 % [facility] Comment: Interpretive Data Percent cell count reference ranges are not reported, since discordance with absolute values may lead to misinterpretation of CBC data. Current Interpretive Data was last revised on 2018. Eosinophil pct 0.8 % [facility] Comment: Interpretive Data Percent cell count reference ranges are not reported, since discordance with absolute values may lead to misinterpretation of CBC data. Current Interpretive Data was last revised on 2018. Basophil pct 0.8 % [facility] Comment: Interpretive Data Percent cell count reference ranges are not reported, since discordance with absolute values may lead to misinterpretation of CBC data. Current Interpretive Data was last revised on 2018. Blood specimen (specimen) 12/10/2018 2:35 PM HEARING IMPAIRED TEACHER 12/10/2018 2:42 PM HEARING IMPAIRED TEACHER Narrative [facility] - 12/10/2018 3:18 PM HEARING IMPAIRED TEACHER Betina Bray MD LAB BLOOD ORDERABLES Fi nal Result Performing Organization Address [facility]/ZIP Co de Phone Number [facility] [address] Department [employer] [place] [address] * Lipase (12/10/2018 2:35 PM HEARING IMPAIRED TEACHER) Lipase 17 10 - 99 Units/L [facility] Blood specimen (specimen) 12/10/2018 2:35 PM HEARING IMPAIRED TEACHER 12/10/2018 2:42 PM HEARING IMPAIRED TEACHER Narrative [facility] - 12/10/2018 3:04 PM HEARING IMPAIRED TEACHER Betina Bray MD LAB BLOOD ORDERABLES Fi nal Result Performing Organization Address [facility] de Phone Number [facility] [address] Department [place] [address] * Comprehensive metabolic panel (12/10/2018 2:35 PM HEARING IMPAIRED TEACHER) Sodium 138 135 - 145 mmol/L [facility] [...] CH Blood specimen (specimen) 12/10/2018 2:35 PM HEARING IMPAIRED TEACHER 12/10/2018 2:42 PM HEARING IMPAIRED TEACHER Narrative [facility] - 12/10/2018 3:04 PM HEARING IMPAIRED TEACHER us Betina Bray MD LAB BLOOD ORDERABLES Fi nal Result [facility] [address] Department [place] [address] * (ABNORMAL) CBC with auto differential (12/10/2018 2:35 PM HEARING IMPAIRED TEACHER) WBC 8.3 3.8 - 9.9 K/cumm [facility] [...] RDW SD 48.5(H) 35.7 - 48.1 fL [facility] NRBC abs 0.00 0.00 - 0.01 K/cumm [facility] Blood specimen (specimen) 12/10/2018 2:35 PM HEARING IMPAIRED TEACHER 12/10/2018 2:42 PM HEARING IMPAIRED TEACHER Narrative [facility] - 12/10/2018 2:53 PM HEARING IMPAIRED TEACHER us Betina Bary MD LAB BLOOD ORDERABLES Fi nal Result [facility] [address] Department [place] [address] documented in this encounter Visit Diagnoses Diagnosis Constipation, unspecified constipation type- Primary documented in this encounter Administered Medications Inactive Administered Medications - up to 3 most recent administrations Medication Order MAR Action Action Date Dose Rate Site al & mag hydroxide simethicone-lidocaine oral suspension mixture 40 mL, oral, Once, On 12/10/18 at 1358, For 1 dose Given 12/10/2018 3:15 PM HEARING IMPAIRED TEACHER 40 mL magnesium citrate oral solution 296 mL 296 mL, oral, Once, On 12/10/18 at 1553, For 1 dose Given 12/10/2018 4:33 PM HEARING IMPAIRED TEACHER 296 mL ondansetron (ZOFRAN) injection 4 mg 4 mg, intravenous, Administer over 2 Minutes, Once, On 12/10/18 at 1358, For 1 dose, Indications: Nausea, VomitingIndications:Nausea,Vomitin g Given 12/10/2018 3:15 PM HEARING IMPAIRED TEACHER 4 mg documented in this encounter Active and Recently Administered Medications Times are shown in HEARING IMPAIRED TEACHER. Scheduled Medication Order 12/08/2018 12/09/2018 12/10/2018 al [...] RN) documented in this encounter Care Teams Cue Worker Relationship Specialty [place] [address] [address] PCP - General 11/12/16 03/11/22 documented as of this encounter
--- OUTSIDE RECORDS SUMMARY | 2024-10-11 03:06 | XMS_ITS | Encounter Summary ---
Author Organization [facility] Medical Group Address [address] [address] Care Team Providers Care Client Application Support Engineer Name Role Phone Santino Funk MD [...] Expiration Date Visits Re quested Visits Authorized [id number] Closed 10/25/2018 05/05/2020 1 1 BUILDER * Diagnostic Imaging (Routine) - Closed Specialty Diagnoses / Procedures Referred By Contac t Referred To Contact Diagnoses Complex tear of medial meniscus of left knee as current injury, subsequent encounter Procedures XR Knee Left 3 Views George Sepulveda MD Phone: tel: fax: [facility] Referral ID Status Reason Start Date Expiration Date Visits Re quested Visits Authorized [id number] Closed 10/25/2018 05/05/2020 1 1 BUILDER Reason for Visit * Reason Comments Post-op Post-op Encounter Details Date Type Department Care Team (Latest Contact Info) Description 10/25/2018 8:15 AM TANK BUILDER Office Visit [facility] [address] [facility] [address] [place] [phone] [place] [address] [facility] [address] [place] [address] Primary osteoarthritis of left knee [...] on file Legal Sex Male 3:25 PM TANK BUILDER Gender Identity Not on file Sexual Orientation Not on file documented as of this encounter Last Filed Vital Signs Vital Sign Reading Time Taken Comments Blood Pressure - - Pulse - - Temperature - - Respiratory Rate - - Oxygen Saturation - - Inhaled Oxygen Concentration - - Weight 99.3 kg (219 lb) 10/25/2018 8:54 AM TANK BUILDER Height 182.9 cm (6') 10/25/2018 8:54 AM TANK BUILDER Body Mass Index 29.7 10/25/2018 8:54 AM TANK BUILDER documented in this encounter Progress Notes * [...] and interpreted these demonstrate stable osteoarthritis with [id number] grade 4 patellofemoral joint space narrowing grade [...] month for further evaluation George Sepulveda MD BUILDER documented in this encounter Plan of Treatment Upcoming Encounters Date Type Department Care Team (Latest Contact Info) Description 10/23/2024 10:00 AM TANK BUILDER Hospital Encounter [facility] Operating Room [address] [place] [address] [place] [address] [address] 10/23/2024 10:00 AM TANK BUILDER - 10/23/2024 1:00 PM TANK BUILDER Surgery [facility] Operating Room [address] [place] [address] [place] [address] [id number] ARTHROPLASTY TOTAL KNEE LEFT Scheduled Procedures Name Priority Associated Diagnoses Date/Ti me ARTHROPLASTY TOTAL KNEE left knee osteoarthritis 10/23/2024 10:00 AM TANK BUILDER ESOPHAGOGASTRODUODENOSCOPY Dysphagia, unspecified type documented as of this encounter Procedures Procedure Name Priority Date/Time Associated Diagnosis Comments ND ARTHROCENTESIS ASPIR&/INJ MAJOR JT/BURSA W/O US Routine 10/25/2018 8:15 AM TANK BUILDER Primary osteoarthritis of left knee Complex tear of medial meniscus of left knee as current injury, subsequent encounter documented in this encounter Results * XR Knee Left 3 Views (10/25/2018 9:11 AM TANK BUILDER) Anatomical Region Laterality Modality Lower Extremities, Knee Left [facility] Narrative 10/25/2018 9:18 AM TANK BUILDER Radiographs of the left knee reviewed and interpreted these demonstrate stable osteoarthritis with [id number] grade 4 patellofemoral joint space narrowing grade 3 medial compartment narrowing and grade 2 lateral compartment narrowing. us George Sepulveda MD IMG XR PROCEDURES Final R esult * ND ARTHROCENTESIS ASPIR&/INJ MAJOR JT/BURSA W/O US (10/25/2018 8:15 AM TANK BUILDER) Narrative George Sepulveda MD - 10/25/2018 8:15 AM TANK BUILDER George Sepulveda MD ? 10/25/2018 ??9:40 AM [...] of Local Anesthesia Given 10/25/2018 9:27 AM TANK BUILDER 4 mL methylPREDNISolone acetate (DEPO-medrol) injection 80 mg 80 mg, intra-articular, One-Time Injection, Starting on Wed10/25/18 at 0927, For 1 doseIndications:Primary osteoarthritis of left knee,Complex tear of medial meniscus of left knee as current injury, subsequent encounter Given 10/25/2018 9:27 AM TANK BUILDER 80 mg documented in this encounter Care Teams Client Application Support Engineer Relationship Specialty [place] [address] [address] PCP - General 11/12/16 03/11/22 documented as of this encounter
--- OUTSIDE RECORDS SUMMARY | 2024-10-11 03:06 | XMS_ITS | Encounter Summary ---
Author Organization [facility] Healthcare Address [address] [place] [address] Care Team Providers Care Operations Management Trainee Name Role Phone Santino Funk MD Primary [...] st Contact Info) Description 12/12/2018 4:20 AM [facility] - 12/12/2018 12:41 PM [facility] Emergency [facility] Emergency Department [address] [place] [phone] [place] [address] [place] [phone] [place] [address] [facility] [address] [place] [address] Drug-induced constipation (Primary Dx) Discharge Disposition: Discharge [...] on file Legal Sex Male 3:25 PM APPRENTICE PHOTOGRAPHER Gender Identity Not on file Sexual Orientation Not on file documented as of this encounter Last Filed Vital Signs Vital Sign Reading Time Taken Comments Blood Pressure 157/96 12/12/2018 9:15 AM APPRENTICE PHOTOGRAPHER Pulse 79 12/12/2018 11:00 AM APPRENTICE PHOTOGRAPHER Temperature 36.7 ??C (98 ??F) 12/12/2018 3:49 AM APPRENTICE PHOTOGRAPHER Respiratory Rate 18 12/12/2018 3:49 AM APPRENTICE PHOTOGRAPHER Oxygen Saturation 97% 12/12/2018 11:00 AM APPRENTICE PHOTOGRAPHER Inhaled Oxygen Concentration - - Weight 99.8 kg (220 lb) 12/12/2018 3:49 AM APPRENTICE PHOTOGRAPHER Height 182.9 cm (6') 12/12/2018 3:49 AM APPRENTICE PHOTOGRAPHER Body Mass Index 29.84 12/12/2018 3:49 AM APPRENTICE PHOTOGRAPHER documented in this encounter Discharge Instructions * Attachments The following attachments cannot be sent through Care Everywhere. * Constipation (Adult) (Chinese) documented in this encounter Medications at Time [...] HERNIA REPAIR 1980 Hiatal Hernia repair ??? [place] ABDOMEN SURGERY PROC UNLISTED Hernia Repair - [...] for and in the presence of Dr. Aoln Manley MD. I electronically signed this note at 7:07 AM I, Alon Vineet, have personally performed the services described in the documentation , reviewed the documentation, as recorded by the scribe in my presence, and it accurately and completely recordsmy words and actions. Alon Manley MD 12/12/18 0707 ENTICE PHOTOGRAPHER documented in this encounter Miscellaneous Notes * ED Re-evaluation Note - Arcenio Garcia MD - 12/12/2018 8:07 AM APPRENTICE PHOTOGRAPHER 8:07 AM Patient care assumed from Dr. [...] this time. Fabiana Kimbrough Iraheta scribed for Arceino Garcia MD. I electronically signed this note at 11:48 AM on12/12/2018. Arcenio Ramos MD, have personally performed the services described in the documentation , reviewed the documentation, as recorded by the scribe in my presence, and it accurately and completelyrecords my words and actions. Arcenio Garcia MD 12/29/18 8542 documented in this encounter Plan of Treatment Upcoming Encounters Date Type Department Care Team (Latest Contact Info) Description 10/23/2024 10:00 AM APPRENTICE PHOTOGRAPHER Hospital Encounter [facility] Operating Room [address] [place] [address] [place] [address] [phone] 10/23/2024 10:00 AM APPRENTICE PHOTOGRAPHER - 10/23/2024 1:00 PM APPRENTICE PHOTOGRAPHER Surgery [facility] Operating Room [id number] [place] [address] [place] [address] [phone] ARTHROPLASTY TOTAL KNEE LEFT Scheduled Procedures Name Priority Associated Diagnoses Date/Ti me ARTHROPLASTY TOTAL KNEE left knee osteoarthritis 10/23/2024 10:00 AM APPRENTICE PHOTOGRAPHER ESOPHAGOGASTRODUODENOSCOPY Dysphagia, unspecified type documented as of this encounter Procedures Procedure Name Priority Date/Time Associated Diagnosis Comments US GALLBLADDER ED 12/12/2018 9:59 AM APPRENTICE PHOTOGRAPHER EGFR STAT 12/12/2018 9:59 AM APPRENTICE PHOTOGRAPHER DIFFERENTIAL AUTO STAT 12/12/2018 9:5 9 AM APPRENTICE PHOTOGRAPHER CBC WITH AUTO DIFFERENTIAL STAT 12/12/2018 9:59 AM APPRENTICE PHOTOGRAPHER LIPASE STAT 12/12/2018 9:59 AM APPRENTICE PHOTOGRAPHER AMYLASE STAT 12/12/2018 9:59 AM APPRENTICE PHOTOGRAPHER COMPREHENSIVE METABOLIC PANEL STAT 12/12/2018 9:59 AM APPRENTICE PHOTOGRAPHER documented in this encounter Results * US Gallbladder (12/12/2018 9:59 AM APPRENTICE PHOTOGRAPHER) Anatomical Region Laterality Modality Abdomen N/A Ultrasound 12/12/2018 10:0 5 AM APPRENTICE PHOTOGRAPHER Impressions 12/12/2018 10:11 AM APPRENTICE PHOTOGRAPHER 1. No evidence of cholelithiasis or cholecystitis. 2. ??Incidentally noted hepatic cyst. Electronically signed by: Martir Yang M.D. Narrative 12/12/2018 10:11 AM APPRENTICE PHOTOGRAPHER RIGHT UPPER QUADRANT ULTRASOUND DATE: 12/12/2018 10:05 [...] Resu lt * eGFR (12/12/2018 9:59 AM APPRENTICE PHOTOGRAPHER) eGFR 64 mL/min/1.7 3 m2 [facility] Comment: Interpretive Data Reference Interval Normal ?>/= 90 mL/min/1.73m2 Mildly decreased* ? 60 - 89 mL/min/1.73m2 Mildly to moderately decreased ?45 - 59 mL/min/1.73m2 Moderately to severely decreased ??30 - 44 mL/min/1.73m2 Severely decreased ?15 - 29 mL/min/1.73m2 Kidney Failure ?< 15 ??mL/min/1.73m2 *Relative to young adult level If -Lithuanian multiply value by 1.16. Estimated glomerular filtration [...] 2016. Blood specimen (specimen) 12/12/2018 9:59 AM APPRENTICE PHOTOGRAPHER 12/12/2018 10:09 AM APPRENTICE PHOTOGRAPHER Narrative [facility] - 12/12/2018 10:31 AM APPRENTICE PHOTOGRAPHER Arcenio Garcia MD LAB BLOOD ORDERABLES Final R esult [facility] [address] [place] [address] * (ABNORMAL) Differential, auto (12/12/2018 9:59 AM APPRENTICE PHOTOGRAPHER) Neutrophil abs 5.7 1.7 - 6.5 K/cumm [facility] Imm gran abs 0.0 0.0 - 0.1 K/cumm [facility] Lymphocyte abs 2.8 0.8 - 3.3 K/cumm [facility] Monocyte abs 1.0(H) 0.2 - 0.8 K/cumm [facility] Eosinophil abs 0.1 0.0 - 0.5 K/cumm [facility] Basophil abs 0.1 0.0 - 0.1 K/cumm [facility] Neutrophil pct 58.8 % [facility] Comment: Interpretive Data Percent cell count reference ranges are not reported, since discordance with absolute values may lead to misinterpretation of CBC data. Current Interpretive Data was last revised on 2018. Imm gran pct 0.5 % [facility] Comment: Interpretive Data Percent cell count reference ranges are not reported, since discordance with absolute values may lead to misinterpretation of CBC data. Current Interpretive Data was last revised on 2018. Lymphocyte pct 28.5 % [facility] Comment: Interpretive Data Percent cell count reference ranges are not reported, since discordance with absolute values may lead to misinterpretation of CBC data. Current Interpretive Data was last revised on 2018. Monocyte pct 10.2 % [facility] Comment: Interpretive Data Percent cell count reference ranges are not reported, since discordance with absolute values may lead to misinterpretation of CBC data. Current Interpretive Data was last revised on 2018. Eosinophil pct 1.3 % [facility] Comment: Interpretive Data Percent cell count reference ranges are not reported, since discordance with absolute values may lead to misinterpretation of CBC data. Current Interpretive Data was last revised on 2018. Basophil pct 0.7 % [facility] Comment: Interpretive Data Percent cell count reference ranges are not reported, since discordance with absolute values may lead to misinterpretation of CBC data. Current Interpretive Data was last revised on 2018. Blood specimen (specimen) 12/12/2018 9:59 AM APPRENTICE PHOTOGRAPHER 12/12/2018 10:03 AM APPRENTICE PHOTOGRAPHER Narrative [facility] - 12/12/2018 10:11 AM APPRENTICE PHOTOGRAPHER Arcenio Garcia MD LAB BLOOD ORDERABLES Final R esult Performing Organization Address City/[facility]/ZIP Co de Phone Number [facility]IN FISHER [address] [address] [facility] [place] [address] * Lipase (12/12/2018 9:59 AM APPRENTICE PHOTOGRAPHER) Pathologist [facility] Lipase 21 10 - 99 Units/L [facility] Blood specimen (specimen) 12/12/2018 9:59 AM APPRENTICE PHOTOGRAPHER 12/12/2018 10:03 AM APPRENTICE PHOTOGRAPHER Narrative [facility] - 12/12/2018 10:31 AM APPRENTICE PHOTOGRAPHER Arcenio Garcia MD LAB BLOOD ORDERABLES Final R esult Performing Organization Address [facility] de Phone Number MARVIN FISHER [address] [place] [address] * (ABNORMAL) CBC with auto differential (12/12/2018 9:59 AM APPRENTICE PHOTOGRAPHER) Pathologist [facility] WBC 9.6 3.8 - 9.9 K/cumm [facility] Hgb 16.4 13.0 - 17.5 g/dL [facility] Hct 49.4 38.9 - 50.3 % [facility] Plt 248 150 - 400 K/cumm [facility] MPV 10.1 9.1 - 12.3 fL [facility] RBC 4.89 4.30 - 5.80 M/cumm [facility] MCV 101.0(H) 81.3 - 96.4 fL [facility] MCH 33.5(H) 27.1 - 33.[address] [facility] MCHC 33.2 32.3 - 35.7 g/dL [facility] RDW CV 13.0 11.1 - 14.9 % [facility] RDW SD 48.8(H) 35.7 - 48.1 fL [facility] NRBC abs 0.00 0.00 - 0.01 K/cumm [facility] Blood specimen (specimen) 12/12/2018 9:59 AM APPRENTICE PHOTOGRAPHER 12/12/2018 10:03 AM APPRENTICE PHOTOGRAPHER Narrative [facility] - 12/12/2018 10:11 AM APPRENTICE PHOTOGRAPHER us Arcenio Garcia MD LAB BLOOD ORDERABLES Final R esult [facility] [address] [place] [address] * (ABNORMAL) Comprehensive metabolic panel (12/12/2018 9:59 AM APPRENTICE PHOTOGRAPHER) Sodium 136 135 - 145 mmol/L [facility] [...] CH Blood specimen (specimen) 12/12/2018 9:59 AM APPRENTICE PHOTOGRAPHER 12/12/2018 10:03 AM APPRENTICE PHOTOGRAPHER Narrative [facility] - 12/12/2018 10:31 AM APPRENTICE PHOTOGRAPHER Arcenio Garcia MD LAB BLOOD ORDERABLES Final R esult Performing Organization Address City/[facility]/ZIP Co de Phone Number MARVIN FISHER [address] [address] [place] [address] * Amylase (12/12/2018 9:59 AM APPRENTICE PHOTOGRAPHER) Amylase 42 30 - 99 Units/L [facility] Blood specimen (specimen) 12/12/2018 9:59 AM APPRENTICE PHOTOGRAPHER 12/12/2018 10:03 AM APPRENTICE PHOTOGRAPHER Narrative [facility] - 12/12/2018 10:31 AM APPRENTICE PHOTOGRAPHER Arcenio Garcia MD LAB BLOOD ORDERABLES Final R esult Performing Organization Address [facility] Co de Phone Number MARVIN FISHER [address] [address] [place] [address] documented in this encounter Visit Diagnoses Diagnosis Drug-induced constipation- Primary Other constipation documented in this encounter Administered Medications Inactive Administered Medications - up to 3 most recent administrations Medication Order MAR Action Action Date Dose Rate Site acetaminophen (TYLENOL) tablet 1,000 mg 1,000 mg, oral, Once, On Wed12/12/18 at 0912, For 1 dose Given 12/12/2018 9:30 AM APPRENTICE PHOTOGRAPHER 1,000 mg ampicillin-sulbactam (UNASYN) 3 g in sodium chloride 0.9% 100 mL IVPB 3 g, intravenous, at 200 mL/hr, Administer over 30 Minutes, Once, On Wed12/12/18 at 0816, For 1 dose, Mini-Bag Plus bag, Indications: Abdominal/Pelvic InfectionIndications:A bdominal/Pelvic Infection New Bag 12/12/2018 8:46 AM APPRENTICE PHOTOGRAPHER 3 g 200 mL/hr bisacodyl (DULCOLAX) suppository 10 mg 10 mg, rectal, Once, On Wed12/12/18 at 0706, For 1 dose, Indications: constipationIndication s:constipation Given 12/12/2018 7:47 AM APPRENTICE PHOTOGRAPHER 10 mg lactulose (CEPHULAC) packet 20 g 20 g, oral, Daily, First dose on Wed12/12/18 at 1044 Given 12/12/2018 11:30 AM APPRENTICE PHOTOGRAPHER 20 g methylnaltrexone (RELISTOR) injection 12 mg 12 mg, subcutaneous, Once, On Wed12/12/18 at 0609, For 1 dose, Indications: Opioid-Induced ConstipationIndication s:Opioid-Induced Constipation Given 12/12/2018 6:55 AM APPRENTICE PHOTOGRAPHER 12 mg Right Upper Buttock mineral oil (FLEET MINERAL OIL) enema 1 enema 1 enema, rectal, Once, On Wed12/12/18 at 0706, For 1 dose, Indications: constipationIndication s:constipation Given 12/12/2018 7:48 AM APPRENTICE PHOTOGRAPHER 1 enema senna-docusate (PERICOLACE) 8.6-50 mg per tablet 1 tablet 1 tablet, oral, Once, On Wed12/12/18 at 0706, For 1 dose Given 12/12/2018 8:00 AM APPRENTICE PHOTOGRAPHER 1 tablet documented in this encounter Active and Recently Administered Medications Times are shown in APPRENTICE PHOTOGRAPHER. Scheduled Medication Order 12/10/2018 12/11/2018 12/12/2018 acetaminophen [...] RN) documented in this encounter Care Teams Operations Management Trainee Relationship Specialty [place] [address] [address] [address] PCP - General 11/12/16 03/11/22 documented as of this encounter
--- OUTSIDE RECORDS SUMMARY | 2024-10-11 03:06 | XMS_ITS | Encounter Summary ---
Author Organization [facility] Facility Care Team Providers Care Cognos Bi Administrator Name Role Phone Santino Funk MD Primary Care Provider + Encounter Details Date Type Department Care Team (Latest Contact Info) Description 12/14/2019 Travel Social History Tobacco Use Types Packs/Day Years Used Date Smoking Tobacco: Former Cigarettes 1 966 - 2722 Smokeless Tobacco: Never Alcohol Use Standard Drinks/Week Comments Yes 1 (1 standard drink = 0.6 oz pur e alcohol) PHQ-2 Answer Date Recorded PHQ-2 Score 0 12/12/2018 Sex and Gender Information Value Date Recorded Sex Assigned at Not on file Legal Sex Male 3:25 PM SITE LEASING AGENT Gender Identity Not on file Sexual Orientation Not on file documented as of this encounter Plan of Treatment Upcoming Encounters Date Type Department Care Team (Latest Contact Info) Description 10/23/2024 10:00 AM [facility] Hospital Encounter [facility] Operating Room [address] [place] [address] [place] [address] [address] 10/23/2024 10:00 AM SITE LEASING AGENT - 10/23/2024 1:00 PM [facility] Surgery [facility] Operating Room [address] [place] [address] [place] [address] [address] ARTHROPLASTY TOTAL KNEE LEFT Scheduled Procedures Name Priority Associated Diagnoses Date/Ti me ARTHROPLASTY TOTAL KNEE left knee osteoarthritis 10/23/2024 10:00 AM SITE LEASING AGENT ESOPHAGOGASTRODUODENOSCOPY Dysphagia, unspecified type documented as of this encounter Visit Diagnoses Not on filedocumented in this encounter Care Teams Cognos Bi Administrator Relationship Specialty [place] [address] [address] [facility] [place] [address] PCP - General 11/12/16 03/11/22 documented as of this encounter
--- OUTSIDE RECORDS SUMMARY | 2024-10-11 03:06 | XMS_ITS | Encounter Summary ---
Author Organization [facility] Facility Care Team Providers Care Combination Machine Tool Setter Name Role Phone Santino Funk MD Primary [...] on file Legal Sex Male 3:25 PM FUNERAL PRE ARRANGEMENT SPECIALIST Gender Identity Not on file Sexual [...] (Latest Contact Info) Description 10/23/2024 10:00 AM FUNERAL PRE ARRANGEMENT SPECIALIST Hospital Encounter [facility] Operating Room [address] [place] [address] [place] [address] [id number] 10/23/2024 10:00 AM FUNERAL PRE ARRANGEMENT SPECIALIST - 10/23/2024 1:00 PM FUNERAL PRE ARRANGEMENT SPECIALIST Surgery [facility] Operating Room [address] [place] [address] [place] [address] [facility] [facility] [address] [place] [address] ARTHROPLASTY TOTAL KNEE LEFT Scheduled Procedures Name Priority Associated Diagnoses Date/Ti me ARTHROPLASTY TOTAL KNEE left knee osteoarthritis 10/23/2024 10:00 AM FUNERAL PRE ARRANGEMENT SPECIALIST ESOPHAGOGASTRODUODENOSCOPY Dysphagia, unspecified type documented as of this encounter Visit Diagnoses Not on filedocumented in this encounter Care Teams Combination Machine Tool Setter Relationship Specialty [place] [address] [facility] [address] [place] [address] PCP - General 11/12/16 03/11/22 documented as of this encounter
--- OUTSIDE RECORDS SUMMARY | 2024-10-11 03:06 | XMS_ITS | Encounter Summary ---
Author Organization [facility] Address [address] [place] [address] Care Team Providers Care Certified Scrum Master Name Role Phone Santino Funk MD Primary Care Provider + Reason for Referral * ENT (Routine) - Closed Specialty Diagnoses / Procedures Referred By Dillan mccallum Referred To Contact Radiology Diagnoses Thyroid nodule Procedures US Guided Thyroid Fine Needle Aspiration 1st Lesion Consult to Radiology for Biopsy Saqib Henry MD [address] [address] Phone: tel: fax: [address] [phone] Referral ID Status Reason Start Date Expiration Date Visits Re quested Visits Authorized [id number] Closed 11/20/2019 05/31/2021 1 1 SPECIAL AGENT Reason for Visit * ENT (Routine) - Closed Specialty Diagnoses / Procedures Referred By Dillan mccallum Referred To Contact Radiology Diagnoses Thyroid nodule Procedures US Guided Thyroid Fine Needle Aspiration 1st Lesion Consult to Radiology for Biopsy Saqib Henry MD [address] [place] [address] Phone: tel: fax: [address] [place] [address] Referral ID Status Reason Start Date Expiration Date Visits Re quested Visits Authorized [id number] Closed 11/20/2019 05/31/2021 1 1 Encounter Details Date Type Department Care Team (Latest Contact Info) Description 11/27/2019 1:39 PM FBI SPECIAL AGENT - 11/27/2019 11:59 PM FBI SPECIAL AGENT Hospital Encounter [facility] [address] [place] [address] Saqib Henry MD [address] [place] [address] Thyroid nodule Discharge Disposition: Discharge to home [...] on file Legal Sex Male 3:25 PM FBI SPECIAL AGENT Gender Identity Not on file Sexual [...] Latisha Overton MD - 11/27/2019 2:30 PM FBI SPECIAL AGENT Radiology Brief Post Procedure Note Attending: Dr. Javier Raymond Mill Operator: Dr. Overton Sedation/Anesthesia: Local Pre-Op/Pre-Procedure Diagnosis: left thyroid nodule Post-Op/Post-Procedure Diagnosis: same Procedure Performed: left inf thyroid nodule FNA Procedure Findings: left inf thyroid nodule, successful FNA Complications: None Estimated Blood Loss: None Specimens: 6 FNA speciments Condition: Stable Full report to follow. SPECIAL AGENT documented in this encounter Plan of Treatment Upcoming Encounters Date Type Department Care Team (Latest Contact Info) Description 10/23/2024 10:00 AM FBI SPECIAL AGENT Hospital Encounter [facility] Operating Room [address] [place] [address] [place] [address] [address] 10/23/2024 10:00 AM FBI SPECIAL AGENT - 10/23/2024 1:00 PM FBI SPECIAL AGENT Surgery [facility] Operating Room [address] [place] [address] [place] [address] [address] ARTHROPLASTY TOTAL KNEE LEFT Scheduled Procedures Name Priority Associated Diagnoses Date/Ti me ARTHROPLASTY TOTAL KNEE left knee osteoarthritis 10/23/2024 10:00 AM FBI SPECIAL AGENT ESOPHAGOGASTRODUODENOSCOPY Dysphagia, unspecified type documented as of this encounter Procedures Procedure Name Priority Date/Time Associated Diagnosis Comments US GUIDED THYROID FINE NEEDLE ASPIRATION 1ST LESION Schedule Routine, Read Routine (OP Routine) 11/27/2019 3:07 PM FBI SPECIAL AGENT Thyroid nodule CYTOLOGY Routine 11/27/2019 2:46 PM FBI SPECIAL AGENT Thyroid nodule documented in this encounter Results * US Guided Thyroid Fine Needle Aspiration 1st Lesion (11/27/2019 3:07 PM FBI SPECIAL AGENT) Anatomical Region Laterality Modality Thyroid N/A Ultrasound 11/27/2019 3:22 PM FBI SPECIAL AGENT Impressions 11/27/2019 3:29 PM FBI SPECIAL AGENT 1. Successful thyroid biopsy of the low suspicion left thyroid nodule. Dictated by: Latisha Overton M.D. The radiology attending physician has personally reviewed this study, and had reviewed and/or edited this written report and agrees with it. Electronically signed by: Dima Javier M.D. Narrative 11/27/2019 3:29 PM FBI SPECIAL AGENT EXAMINATION: ULTRASOUND-GUIDED THYROID FINE NEEDLE ASPIRATION HISTORY: [...] fine needle aspirates were handed to the executive vice president business development present during the procedure. Please refer to [...] fine needle aspirates were handed to the executive vice president business development present during the procedure. Please refer to [...] Electronically signed by: Dima Javier M.D. Result [facility] Nikhil Henry MD [facility] PROCEDURES Krystina l Result * Cytology (11/27/2019 2:46 PM FBI SPECIAL AGENT) Fine needle aspirate (Thyroid Gland (Cytology)) 11/27/2019 2:54 PM FBI SPECIAL AGENT Narrative PATHOLOGY [facility] - 11/29/2019 11:17 AM FBI SPECIAL AGENT EPIC results best viewed via link to PDF [facility] [place] [address] CYTOPATHOLOGY REPORT FINAL Patient Name: ?? GUNJAN GTZ Gender: ??M : ??1944 (Age: 75) Address: ??[address] [place] [address] [address], [place], [place] ??[address] Hospital #: ??[id number] Taken:11/27/2019 Received:11/27/2019 Reported: 11/29/2019 Patient Type: [facility] Ancillary ?? Service: Radiology Location: [facility] Physician(s): ??MD Saqib Benjamin M.D., [...] determined by the Surgical Pathology Department at [facility] as part of an ongoing personnel quality assurance auditor program and in compliance with federally mandated [...] determined by the Surgical Pathology Department of [facility]. ??It has not been cleared or approved by the [place]. S. Food and Drug Administration. Saqib Henry MD LAB CYTOLOGY ORDERABLE S Final Result PATHOLOGY [facility] 3rd Floor [place], [place] [phone] documented in this encounter Visit Diagnoses Diagnosis [...] of Local Anesthesia Given 11/27/2019 2:50 PM FBI SPECIAL AGENT 4 mL Other (Comment) Given 11/27/2019 2:50 PM FBI SPECIAL AGENT 4 mL Ot her (Comment) documented in this encounter Care Teams Certified Scrum Master Relationship Specialty [place] [address] [facility] [place] [address] PCP - General 11/12/16 03/11/22 documented as of this encounter
--- OUTSIDE RECORDS SUMMARY | 2024-10-11 03:06 | XMS_ITS | Encounter Summary ---
Author Organization [facility] Address [address] [place] [address] Care Team Providers Care Manager Loan Name Role Phone Santino Funk MD Primary Care Provider + Encounter Details Date Type Department Care Team (Late st Contact Info) Description 12/10/2018 2:30 PM HARDNESS TESTER - 12/10/2018 11:59 PM HARDNESS TESTER Hospital Encounter [facility] [address] [place] [address] [place] [id number] [place] [address] Discharge Disposition: Discharge to home or self care Social History Tobacco Use Types Packs/Day Years Used Date Smoking Tobacco: Former Smokeless Tobacco: Never Alcohol Use Standard Drinks/Week Comments Yes 0 (1 standard drink = 0.6 oz pur e alcohol) Sex and Gender Information Value Date Recorded Sex Assigned at Not on file Legal Sex Male 3:25 PM HARDNESS TESTER Gender Identity Not on file Sexual Orientation [...] (Latest Contact Info) Description 10/23/2024 10:00 AM HARDNESS TESTER Hospital Encounter [facility] Operating Room [address] [place] [address] [place] [address] [facility] [address] [place] [address] 10/23/2024 10:00 AM HARDNESS TESTER - 10/23/2024 1:00 PM HARDNESS TESTER Surgery [facility] Operating Room [address] [place] [address] [place] [address] [facility] [address] [place] [address] ARTHROPLASTY TOTAL KNEE LEFT Scheduled Procedures Name Priority Associated Diagnoses Date/Ti me ARTHROPLASTY TOTAL KNEE left knee osteoarthritis 10/23/2024 10:00 AM HARDNESS TESTER ESOPHAGOGASTRODUODENOSCOPY Dysphagia, unspecified type documented as of this encounter Procedures Procedure Name Priority Date/Time Associated Diagnosis Comments XR ABDOMEN ERECT AND OR DECUBITS 2 VIEWS ED 12/10/2018 2:47 PM HARDNESS TESTER documented in this encounter Results * XR Abdomen Erect and or Decubitus 2 Views (12/10/2018 2:47 PM HARDNESS TESTER) Anatomical Region Laterality Modality Body, Abdomen N/A Computed Radiogr aphy 12/10/2018 3:13 PM HARDNESS TESTER Impressions 12/10/2018 3:15 PM HARDNESS TESTER Moderate amount of colonic stool is noted, which may reflect constipation. Electronically signed by: Arpan Martin M.D. Narrative 12/10/2018 3:15 PM HARDNESS TESTER RESULT: EXAMINATION: ABDOMINAL RADIOGRAPH, 1 VIEW Date: [...] filedocumented in this encounter Care Teams Manager Loan Relationship Specialty [place] [address] [address] PCP - General 11/12/16 03/11/22 documented as of this encounter
--- OUTSIDE RECORDS SUMMARY | 2024-10-11 03:06 | XMS_ITS | Encounter Summary ---
Author Organization [facility] Address [address] [facility] [address] [place] [address] Care Team Providers Care Production Scheduler Name Role Phone Santino Funk MD Primary Care Provider + Reason for Referral * Diagnostic Imaging (Routine) - Closed Specialty Diagnoses / Procedures Referred By Contac t Referred To Contact Diagnoses Complex tear of medial meniscus of left knee as current injury, subsequent encounter Procedures XR Knee Left 3 Views George Sepulveda MD Phone: tel: fax: [facility] Medical [facility] Referral ID Status Reason Start Date Expiration Date Visits Re quested Visits Authorized [id number] Closed 10/25/2018 05/05/2020 1 1 ER OPERATOR Reason for Visit * Diagnostic Imaging (Routine) - Closed Specialty Diagnoses / Procedures Referred By Contac t Referred To Contact Diagnoses Complex tear of medial meniscus of left knee as current injury, subsequent encounter Procedures XR Knee Left 3 Views George Sepulveda MD Phone: tel: fax: [facility] Group Referral ID Status Reason Start Date Expiration Date Visits Re quested Visits Authorized [id number] Closed 10/25/2018 05/05/2020 1 1 Encounter Details Date Type Department Care Team (Latest Contact Info) Description 10/25/2018 9:10 AM PEELER OPERATOR - 10/25/2018 11:59 PM PEELER OPERATOR Hospital Encounter [facility] [address] [facility] [address] [place] [address] Complex tear of medial meniscus [...] on file Legal Sex Male 3:25 PM PEELER OPERATOR Gender Identity Not on file Sexual [...] (Latest Contact Info) Description 10/23/2024 10:00 AM PEELER OPERATOR Hospital Encounter [facility] Operating Room [address] [place] [address] [place] [address] [facility] [address] [place] [address] 10/23/2024 10:00 AM PEELER OPERATOR - 10/23/2024 1:00 PM PEELER OPERATOR Surgery [facility] Operating Room [address] [place] [address] [place] [address] [place] [address] ARTHROPLASTY TOTAL KNEE LEFT Scheduled Procedures Name Priority Associated Diagnoses Date/Ti me ARTHROPLASTY TOTAL KNEE left knee osteoarthritis 10/23/2024 10:00 AM PEELER OPERATOR ESOPHAGOGASTRODUODENOSCOPY Dysphagia, unspecified type documented as of this encounter Procedures Procedure Name Priority Date/Time Associated Diagnosis Comments XR KNEE LEFT 3 VIEWS Schedule Routine, Read Routine (OP Routine) 10/25/2018 9:11 AM PEELER OPERATOR Complex tear of medial meniscus of left knee as current injury, subsequent encounter documented in this encounter Results * XR Knee Left 3 Views (10/25/2018 9:11 AM PEELER OPERATOR) Anatomical Region Laterality Modality Lower Extremities, Knee Left Radiogra [facility] Imaging Narrative 10/25/2018 9:18 AM PEELER OPERATOR Radiographs of the left knee reviewed and interpreted these demonstrate stable osteoarthritis with [id number] grade 4 patellofemoral joint space narrowing grade 3 medial compartment narrowing and grade 2 lateral compartment narrowing. eGorge Sepulveda MD IMG XR PROCEDURES Final R esult documented in this encounter Visit Diagnoses Diagnosis Complex tear of medial meniscus of left knee as current injury, subsequent encounter documented in this encounter Care Teams Production Scheduler Relationship Specialty [place] [address] [facility] [address] [place] [address] PCP - General 11/12/16 03/11/22 documented as of this encounter
--- OUTSIDE RECORDS SUMMARY | 2024-10-11 03:06 | XMS_ITS | Encounter Summary ---
Author Organization [facility] Facility Care Team Providers Care Sample Maker Original Name Role Phone Santino Funk MD Primary [...] on file Legal Sex Male 3:25 PM GEOGRAPHIC AREA INTELLIGENCE OFFICER Gender Identity Not on file Sexual [...] (Latest Contact Info) Description 10/23/2024 10:00 AM GEOGRAPHIC AREA INTELLIGENCE OFFICER Hospital Encounter [facility] Operating Room [address] [place] [address] [place] [address] [id number] 10/23/2024 10:00 AM GEOGRAPHIC AREA INTELLIGENCE OFFICER - 10/23/2024 1:00 PM GEOGRAPHIC AREA INTELLIGENCE OFFICER Surgery [facility] Operating Room [address] [place] [address] [place] [address] [address] [facility] [address] [place] [address] ARTHROPLASTY TOTAL KNEE LEFT Scheduled Procedures Name Priority Associated Diagnoses Date/Ti me ARTHROPLASTY TOTAL KNEE left knee osteoarthritis 10/23/2024 10:00 AM GEOGRAPHIC AREA INTELLIGENCE OFFICER ESOPHAGOGASTRODUODENOSCOPY Dysphagia, unspecified type documented as of this encounter Visit Diagnoses Not on filedocumented in this encounter Care Teams Sample Maker Original Relationship Specialty [place] [address] [address] [facility] [address] [place] [address] PCP - General 11/12/16 03/11/22 documented as of this encounter
--- OUTSIDE RECORDS SUMMARY | 2024-10-11 03:06 | XMS_ITS | Encounter Summary ---
Author Organization [facility] Address [address] [facility] [address] [place] [address] Care Team Providers Care Small Appliance Assembly Supervisor Name Role Phone Santino Funk MD Primary Care Provider + Reason for Visit * Reason Onset Date Comments brace 12/08/2018 Encounter Details Date Type Department Care Team (Late st Contact Info) Description 12/08/2018 Telephone [facility] [address] [address] [place] [address] [address] brace Social History Tobacco Use Types Packs/Day Years Used Date Smoking Tobacco: Former Smokeless Tobacco: Never Alcohol Use Standard Drinks/Week Comments Yes 0 (1 standard drink = 0.6 oz pur e alcohol) Sex and Gender Information Value Date Recorded Sex Assigned at Not on file Legal Sex Male 3:25 PM DATA CENTER MANAGER Gender Identity Not on file Sexual Orientation Not on file documented as of this encounter Miscellaneous Notes * Telephone Encounter - Jacquie Penny - 12/08/2018 4:22 PM CST Patient informed. Mary Ellen is aware the patient will be coming in the morning. CENTER MANAGER * Telephone Encounter - Jossie Montalvo PA - 12/08/2018 3:02 PM CST Yes he can, he can come in to get it at his convenience CENTER MANAGER * Telephone Encounter - GuzmanebonyJacquie - 12/08/2018 1:59 PM CST Patient asking if he can get brace for his right knee? CENTER MANAGER documented in this encounter Plan of Treatment Upcoming Encounters Date Type Department Care Team (Latest Contact Info) Description 10/23/2024 10:00 AM DATA CENTER MANAGER Hospital Encounter [facility] Operating Room [address] [place] [address] [place] [address] [address] 10/23/2024 10:00 AM DATA CENTER MANAGER - 10/23/2024 1:00 PM DATA CENTER MANAGER Surgery [facility] Operating Room [address] [place] [address] [place] [address] [address] ARTHROPLASTY TOTAL KNEE LEFT Scheduled Procedures Name Priority Associated Diagnoses Date/Ti me ARTHROPLASTY TOTAL KNEE left knee osteoarthritis 10/23/2024 10:00 AM DATA CENTER MANAGER ESOPHAGOGASTRODUODENOSCOPY Dysphagia, unspecified type documented as of this encounter Visit Diagnoses Not on filedocumented in this encounter Care Teams Small Appliance Assembly Supervisor Relationship Specialty [place] [address] [address] PCP - General 11/12/16 03/11/22 documented as of this encounter
--- OUTSIDE RECORDS SUMMARY | 2024-10-11 03:06 | XMS_ITS | Encounter Summary ---
Author Organization [facility] Medical Group Address [address] [address] Care Team Providers Care Pipe Changer Name Role Phone Santino Funk MD Primary Care Provider + Reason for Referral * Orthopedic (Routine) - Closed Specialty Diagnoses / Procedures Referred By Contac t Referred To Contact Diagnoses Primary osteoarthritis of left knee Procedures Large Joint (Hip, Knee, Shoulder) Injection: L knee Sarah Thorpe PA Phone: tel: fax: [facility] Medical [facility] Referral ID Status Reason Start Date Expiration Date Visits Re quested Visits Authorized [id number] Closed 02/02/2020 08/13/2021 1 1 * Orthopedic (Routine) - Closed Specialty Diagnoses / Procedures Referred By Contac t Referred To Contact Diagnoses Primary osteoarthritis of right knee Procedures Large Joint (Hip, Knee, Shoulder) Injection: R knee Sarah Thorpe PA Phone: tel: fax: [facility] Medical [facility] Referral ID Status Reason Start Date Expiration Date Visits Re quested Visits Authorized [id number] Closed 02/02/2020 08/13/2021 1 1 Reason for Visit * Reason Comments Injections Injections Encounter Details Date Type Department Care Team (Latest Contact Info) Description 02/02/2020 8:15 AM CDT Office [facility] [address] [facility] [address] [place] [address] Sarah Thorpe PA [address] [place] [address] Primary osteoarthritis of left knee (Primary Dx); Primary osteoarthritis of right knee Social History Tobacco Use Types Packs/Day Years Used Date Smoking Tobacco: Former Cigarettes 1 7862 Smokeless Tobacco: Never Alcohol Use Standard Drinks/Week Comments Yes 1 (1 standard drink = 0.6 oz pur e alcohol) PHQ-2 Answer Date Recorded PHQ-2 Score 0 12/12/2018 Sex and Gender Information Value Date Recorded Sex Assigned at Not on file Legal Sex Male 3:25 PM CREW LEADER GLUING Gender Identity Not on file Sexual Orientation [...] at 90 degrees flexion: standard (<5 degrees) [place]: negative Anterior drawer: negative Posterior drawer: negative [...] Contact Info) Description 10/23/2024 10:00 AM CREW LEADER GLUING Hospital Encounter [facility] Operating Room [address] [place] [address] [place] [address] [address] 10/23/2024 10:00 AM CREW LEADER GLUING - 10/23/2024 1:00 PM CREW LEADER GLUING Surgery [facility] Operating Room [address] [place] [address] [place] [address] [address] ARTHROPLASTY TOTAL KNEE LEFT Scheduled Procedures Name Priority Associated Diagnoses Date/Ti me ARTHROPLASTY TOTAL KNEE left knee osteoarthritis 10/23/2024 10:00 AM CREW LEADER GLUING ESOPHAGOGASTRODUODENOSCOPY Dysphagia, unspecified type documented as of this encounter Procedures Procedure Name Priority Date/Time Associated Diagnosis Comments AK ARTHROCENTESIS ASPIR&/INJ MAJOR JT/BURSA W/O US Routine 02/02/2020 8:15 AM CDT Primary osteoarthritis of left knee AK ARTHROCENTESIS ASPIR&/INJ MAJOR JT/BURSA W/O US Routine 02/02/2020 8:15 AM CDT Primary osteoarthritis of right knee documented in this encounter Results * AK ARTHROCENTESIS ASPIR&/INJ MAJOR JT/BURSA W/O US (02/02/2020 [...] IN CLINIC/BEDSIDE VARINDER DEVRIES Final Result * AK ARTHROCENTESIS ASPIR&/INJ MAJOR JT/BURSA W/O US (02/02/2020 [...] complications us Sarah SANDOVAL IN CLINIC/BEDSIDE VARINDER DEVRIES Final Result documented in this encounter Visit [...] 09/11/2021 added in this encounter Care Teams Pipe Changer Relationship Specialty [place] [address] [address] [place] [address] PCP - General 11/12/16 03/11/22 documented as of this encounter
--- OUTSIDE RECORDS SUMMARY | 2024-10-11 03:06 | XMS_ITS | Encounter Summary ---
Author Organization [facility] Facility Care Team Providers Care Director Of Catering Sales Name Role Phone Santino Funk MD Primary [...] on file Legal Sex Male 3:25 PM JEWEL BEARING POLISHER Gender Identity Not on file Sexual [...] (Latest Contact Info) Description 10/23/2024 10:00 AM JEWEL BEARING POLISHER Hospital Encounter [facility] Operating Room [address] [place] [address] [place] [address] [id number] 10/23/2024 10:00 AM JEWEL BEARING POLISHER - 10/23/2024 1:00 PM JEWEL BEARING POLISHER Surgery [facility] Operating Room [address] [place] [address] [place] [address] [address] [facility] [address] [place] [address] ARTHROPLASTY TOTAL KNEE LEFT Scheduled Procedures Name Priority Associated Diagnoses Date/Ti me ARTHROPLASTY TOTAL KNEE left knee osteoarthritis 10/23/2024 10:00 AM JEWEL BEARING POLISHER ESOPHAGOGASTRODUODENOSCOPY Dysphagia, unspecified type documented as of this encounter Visit Diagnoses Not on filedocumented in this encounter Care Teams Director Of Catering Sales Relationship Specialty [place] [address] [address] [facility] [address] [place] [address] PCP - General 11/12/16 03/11/22 documented as of this encounter
--- OUTSIDE RECORDS SUMMARY | 2024-10-11 03:06 | XMS_ITS | Encounter Summary ---
Author Organization [facility] Address [address] [place] [address] Phone Care Team Providers Care Geological Drafter Name Role Phone Santino Funk MD Primary Care Provider + Encounter Details Date Type Department Care Team (Late st Contact Info) Description 12/04/2019 2:30 PM MERCERIZER MACHINE OPERATOR Office Visit [facility]) - [facility] ENT [address] [facility] Advanced Medicine 11th [place] [address] [place] [address] Saqib Henry MD [address] [place] [address] Substernal thyroid goiter Social History Tobacco Use Types Packs/Day Years Used Date Smoking Tobacco: Former Smokeless Tobacco: Never Alcohol Use Standard Drinks/Week Comments Yes 0 (1 standard drink = 0.6 oz pur e alcohol) PHQ-2 Answer Date Recorded PHQ-2 Score 0 12/12/2018 Sex and Gender Information Value Date Recorded Sex Assigned at Not on file Legal Sex Male 3:25 PM MERCERIZER MACHINE OPERATOR Gender Identity Not on file Sexual Orientation Not on file documented as of this encounter Progress Notes * Saqib Henry MD - 12/04/2019 2:30 PM CST [employer] [employer] [facility] Department of Otolaryngology Division of Head and Neck Surgery 12/04/2019 Abrahan Gtz 1944 [id number] Referred by: Dr. Santino Mcgarry Chief Complaint: [...] HERNIA REPAIR 1980 Hiatal Hernia repair ??? [place] ABDOMEN SURGERY PROC [...] file Gets together: Not on file Attends sikh service: Not on file Active member of [...] substernal total thyroidectomy Saqib Henry MD PhD Online Marketing Strategist Attending, Head and Neck Surgery Department of Otolaryngology [facility] [phone] (Clinical nurse Jacquie Hensley RN) Pager [phone] ERIZER MACHINE OPERATOR documented in this encounter Plan of Treatment Upcoming Encounters Date Type Department Care Team (Latest Contact Info) Description 10/23/2024 10:00 AM MERCERIZER MACHINE OPERATOR Hospital Encounter [facility] Operating Room [address] [place] [address] [place] [address] [id number] 10/23/2024 10:00 AM MERCERIZER MACHINE OPERATOR - 10/23/2024 1:00 PM MERCERIZER MACHINE OPERATOR Surgery [facility] Operating Room [id number] [place] [address] [place] [address] [id number] ARTHROPLASTY TOTAL KNEE LEFT Scheduled Procedures Name Priority Associated Diagnoses Date/Ti me ARTHROPLASTY TOTAL KNEE left knee osteoarthritis 10/23/2024 10:00 AM MERCERIZER MACHINE OPERATOR ESOPHAGOGASTRODUODENOSCOPY Dysphagia, unspecified type documented [...] 09/11/2021 added in this encounter Care Teams Geological Drafter Relationship Specialty [place] [id number] [facility] [place] [address] PCP - General 11/12/16 03/11/22 documented as of this encounter
--- OUTSIDE RECORDS SUMMARY | 2024-10-11 03:06 | XMS_ITS | Encounter Summary ---
Author Organization [facility] Facility Care Team Providers Care Inspector Experimental Assembly Name Role Phone Santino Funk MD Primary [...] file Legal Sex Male 3:25 PM HOME CHILD CARE PROVIDER Gender Identity Not on file Sexual Orientation Not on file documented as of this encounter Plan of Treatment Upcoming Encounters Date Type Department Care Team (Latest Contact Info) Description 10/23/2024 10:00 AM [facility] Hospital Encounter [facility] Operating Room [address] [place] [address] [place] [address] [address] 10/23/2024 10:00 AM HOME CHILD CARE PROVIDER - 10/23/2024 1:00 PM [facility] Surgery [facility] Operating Room [address] [place] [address] [place] [address] [address] ARTHROPLASTY TOTAL KNEE LEFT Scheduled Procedures Name Priority Associated Diagnoses Date/Ti me ARTHROPLASTY TOTAL KNEE left knee osteoarthritis 10/23/2024 10:00 AM HOME CHILD CARE PROVIDER ESOPHAGOGASTRODUODENOSCOPY Dysphagia, unspecified type documented as of this encounter Visit Diagnoses Not on filedocumented in this encounter Care Teams Inspector Experimental Assembly Relationship Specialty [place] [address] [address] [facility] [place] [address] PCP - General 11/12/16 03/11/22 documented as of this encounter
--- OUTSIDE RECORDS SUMMARY | 2024-10-11 03:06 | XMS_ITS | Encounter Summary ---
Author Organization [facility] Address [address] [facility] [address] [place] [address] Care Team Providers Care Commercial Real Estate Underwriter Name Role Phone Santino Funk MD Primary Care Provider + Encounter Details Date Type Department Care Team (Late st Contact Info) Description 12/09/2018 Telephone [facility] [address] [address] Destini Kear[place], [place] Social History Tobacco Use Types Packs/Day Years Used Date Smoking Tobacco: Former Smokeless Tobacco: Never Alcohol Use Standard Drinks/Week Comments Yes 0 (1 standard drink = 0.6 oz pur e alcohol) PHQ-2 Answer Date Recorded PHQ-2 Score 0 12/12/2018 Sex and Gender Information Value Date Recorded Sex Assigned at Not on file Legal Sex Male 3:25 PM E COMMERCE PROJECT MANAGER Gender Identity Not on file [...] Can you take care of thisplease? Thanks E COMMERCE PROJECT MANAGER documented in this encounter Plan of Treatment Upcoming Encounters Date Type Department Care Team (Latest Contact Info) Description 10/23/2024 10:00 AM E COMMERCE PROJECT MANAGER Hospital Encounter [facility] Operating Room [address] [place] [address] [place] [address] [address] 10/23/2024 10:00 AM E COMMERCE PROJECT MANAGER - 10/23/2024 1:00 PM E COMMERCE PROJECT MANAGER Surgery [facility] Operating Room [address] [place] [address] [place] [address] [id number] ARTHROPLASTY TOTAL KNEE LEFT Scheduled Procedures Name Priority Associated Diagnoses Date/Ti me ARTHROPLASTY TOTAL KNEE left knee osteoarthritis 10/23/2024 10:00 AM E COMMERCE PROJECT MANAGER ESOPHAGOGASTRODUODENOSCOPY Dysphagia, unspecified type documented as of this encounter Visit Diagnoses Not on filedocumented in this encounter Care Teams Commercial Real Estate Underwriter Relationship Specialty [place] [address] [facility] [address] [address] PCP - General 11/12/16 03/11/22 documented as of this encounter
--- OUTSIDE RECORDS SUMMARY | 2024-10-11 03:06 | XMS_ITS | Encounter Summary ---
Author Organization [facility] Address [address] [place] [address] Phone Care Team Providers Care Liquid Compounder Name Role Phone Santino Funk MD Primary Care Provider + Reason for Referral * ENT (Routine) - Closed Specialty Diagnoses / Procedures Referred By Dillan mccallum Referred To Contact Radiology Diagnoses Thyroid nodule Procedures US Guided Thyroid Fine Needle Aspiration 1st Lesion Consult to Radiology for Biopsy Saqib Henry MD [address] [place] [address] Phone: tel: fax: [address] [phone] Referral ID Status Reason Start Date Expiration Date Visits Re quested Visits Authorized [id number] Closed 11/20/2019 05/31/2021 1 1 R PRINT INSPECTOR Encounter Details Date Type Department Care Team (Late st Contact Info) Description 11/20/2019 [facility] [address] [facility] Advanced Medicine [address]th [place] [address] [place] [id number] Saqib Henry MD [address] [place] [address] Thyroid nodule (Primary Dx) Social History Tobacco Use Types Packs/Day Years Used Date Smoking Tobacco: Former Smokeless Tobacco: Never Alcohol Use Standard Drinks/Week Comments Yes 0 (1 standard drink = 0.6 oz pur e alcohol) PHQ-2 Answer Date Recorded PHQ-2 Score 0 12/12/2018 Sex and Gender Information Value Date Recorded Sex Assigned at Not on file Legal Sex Male 3:25 PM COLOR PRINT INSPECTOR Gender Identity Not on file Sexual Orientation Not on file documented as of this encounter Plan of Treatment Upcoming Encounters Date Type Department Care Team (Latest Contact Info) Description 10/23/2024 10:00 AM COLOR PRINT INSPECTOR Hospital En[facility] Operating Room [address] [place] [address] [place] [address] [address] 10/23/2024 10:00 AM COLOR PRINT INSPECTOR - 10/23/2024 1:00 PM COLOR PRINT INSPECTOR Surgery [facility] Operating Room [address] [place] [address] [place] [address] [id number] ARTHROPLASTY TOTAL KNEE LEFT Scheduled Procedures Name Priority Associated Diagnoses Date/Ti me ARTHROPLASTY TOTAL KNEE left knee osteoarthritis 10/23/2024 10:00 AM COLOR PRINT INSPECTOR ESOPHAGOGASTRODUODENOSCOPY Dysphagia, unspecified type documented as of this encounter Results * US Guided Thyroid Fine Needle Aspiration 1st Lesion (11/27/2019 3:07 PM COLOR PRINT INSPECTOR) Anatomical Region Laterality Modality Thyroid N/A Ultrasound 11/27/2019 3:22 PM COLOR PRINT INSPECTOR Impressions 11/27/2019 3:29 PM COLOR PRINT INSPECTOR 1. Successful thyroid biopsy of the low suspicion left thyroid nodule. Dictated by: Latisha Overton M.D. The radiology attending physician has personally reviewed this study, and had reviewed and/or edited this written report and agrees with it. Electronically signed by: Dima Javier M.D. Narrative 11/27/2019 3:29 PM COLOR PRINT INSPECTOR EXAMINATION: ULTRASOUND-GUIDED THYROID FINE NEEDLE ASPIRATION HISTORY: [...] fine needle aspirates were handed to the electric lineman present during the procedure. Please refer to [...] fine needle aspirates were handed to the electric lineman present during the procedure. Please refer to [...] it. Electronically signed by: Dima Javier M.D. [facility] Nikhil Henry MD [facility] US PROCEDURES Krystina l Result documented in this encounter Visit Diagnoses Diagnosis Thyroid nodule- Primary Nontoxic uninodular goiter Thyroid nodule Nontoxic uninodular goiter documented in this encounter Care Teams Liquid Compounder Relationship Specialty [place] [address] [address] PCP - General 11/12/16 03/11/22 documented as of this encounter
--- OUTSIDE RECORDS SUMMARY | 2024-10-11 03:06 | XMS_ITS | Encounter Summary ---
Author Organization [facility] Facility Care Team Providers Care Education Site Manager Name Role Phone Santino Funk MD [...] file Legal Sex Male 3:25 PM RN INTERNATIONAL Gender Identity Not on file Sexual Orientation Not on file documented as of this encounter Plan of Treatment Upcoming Encounters Date Type Department Care Team (Latest Contact Info) Description 10/23/2024 10:00 AM [facility] Hospital Encounter [facility] Operating Room [address] [place] [address] [place] [address] [address] 10/23/2024 10:00 AM RN INTERNATIONAL - 10/23/2024 1:00 PM [facility] Surgery [facility] Operating Room [address] [place] [address] [place] [address] [address] ARTHROPLASTY TOTAL KNEE LEFT Scheduled Procedures Name Priority Associated Diagnoses Date/Ti me ARTHROPLASTY TOTAL KNEE left knee osteoarthritis 10/23/2024 10:00 AM RN INTERNATIONAL ESOPHAGOGASTRODUODENOSCOPY Dysphagia, unspecified type documented as of this encounter Visit Diagnoses Not on filedocumented in this encounter Care Teams Education Site Manager Relationship Specialty [place] [address] [address] [facility] [place] [address] PCP - General 11/12/16 03/11/22 documented as of this encounter
--- OUTSIDE RECORDS SUMMARY | 2024-10-11 03:06 | XMS_ITS | Encounter Summary ---
Author Organization [facility] Address [address] [place] [address] Phone Care Team Providers Care Industrial Furnace Fabricator Name Role Phone Santino Funk MD Primary Care Provider + Encounter Details Date Type Department Care Team (Late st Contact Info) Description 01/10/2020 Orders Only [facility] ([facility]) - [facility] ENT [address] [facility] Advanced Medicine 11th [place] [address] [place] [address] Saqib Henry MD [address] [place], [place] [id number] Stephen (Primary Dx) Social History Tobacco Use Types Packs/Day Years Used Date Smoking Tobacco: Former Cigarettes 1 966 - 3829 Smokeless Tobacco: Never Alcohol Use Standard Drinks/Week Comments Yes 1 (1 standard drink = 0.6 oz pur e alcohol) PHQ-2 Answer Date Recorded PHQ-2 Score 0 12/12/2018 Sex and Gender Information Value Date Recorded Sex Assigned at Not on file Legal Sex Male 3:25 PM BILINGUAL OFFICE ASSISTANT Gender Identity Not on file Sexual [...] (Latest Contact Info) Description 10/23/2024 10:00 AM BILINGUAL OFFICE ASSISTANT Hospital Encounter [facility] Operating Room [address] [place] [address] [place] [address] [address] 10/23/2024 10:00 AM BILINGUAL OFFICE ASSISTANT - 10/23/2024 1:00 PM BILINGUAL OFFICE ASSISTANT Surgery [facility] Operating Room [address] [place] [address] [place] [address] [address] ARTHROPLASTY TOTAL KNEE LEFT Scheduled Procedures Name Priority Associated Diagnoses Date/Ti me ARTHROPLASTY TOTAL KNEE left knee osteoarthritis 10/23/2024 10:00 AM BILINGUAL OFFICE ASSISTANT ESOPHAGOGASTRODUODENOSCOPY Dysphagia, unspecified type documented as of this encounter Visit Diagnoses Diagnosis Goiter- Primary Goiter, unspecified documented in this encounter Care Teams Industrial Furnace Fabricator Relationship Specialty [place] [address] [facility] [address] [place] [address] PCP - General 11/12/16 03/11/22 documented as of this encounter
--- OUTSIDE RECORDS SUMMARY | 2024-10-11 03:06 | XMS_ITS | Encounter Summary ---
Author Organization [facility] Healthcare Address [address] [place] [address] Care Team Providers Care Drop Clipper Name Role Phone Santino Funk MD Primary Care Provider + Encounter Details Date Type Department Care Team (Latest Contact Info) Description 12/28/2019 6:32 AM CDT - 12/30/2019 1:37 PM CDT Hospital Encounter [facility] [address] [place] [id number] Saqib Henry MD [address] [facility] [address] [place] [address] Goiter Discharge Disposition: Discharge to home or self care Social History Tobacco Use Types Packs/Day Years Used Date Smoking Tobacco: Former Cigarettes 1 [phone] - [phone] Smokeless Tobacco: Never Alcohol Use Standard Drinks/Week Comments Yes 1 (1 standard drink = 0.6 oz pur e alcohol) PHQ-2 Answer Date Recorded PHQ-2 Score 0 12/12/2018 Sex and Gender Information Value Date Recorded Sex Assigned at Not on file Legal Sex Male 3:25 PM SUPERVISOR MALT HOUSE Gender Identity Not on file Sexual Orientation [...] THE NERVOUS SYSTEM AND SENSE ORGANS Other skilled nursing (current) drug therapy - OTHER COIL PLACER (CURRENT) DRUG THERAPY documented in this encounter Discharge Summaries * Alexx, Ruth Hogan MD - 12/30/2019 1:37 PM CDT Inpatient Discharge Summary BRIEF OVERVIEW Admitting Provider: Saqib Henry MD Discharge Provider: No att. providers found Primary Care Physician at Discharge: Santino Funk MD [phone] Admission Date: 12/28/2019 Discharge Date: 12/30/2019 Admission Location: [facility] Problems/Diagnoses: Principal Problem: Goiter Resolved [...] was advanced to a regular diet. His SATCIE drains were monitored. His PTH, calcium levels, [...] hours. Please call Carolyne Prater at the [facility] next week to get an appointment for drain removal. The number to call is [phone]. The drain must be putting out under [...] Henry on 01/07 at 10:15am. Please call [phone] to confirm your follow up appointment. Please follow-up with your primary care provider for management of your thyroid supplementation. Questions: If you have any concerns or questions, or develop worrisome symptoms such as worsening pain or swelling, bleeding, fever, or vomiting, call your doctor. Use [phone] if you are calling during weekday business hours (8am-5pm Wednesday through Wednesday), otherwise call [phone] and ask for the ENT resident liquefaction plant operator. Discharge Medications: Current Medications TAKE these medications [...] 1 tablet (150 mcg total) by mouth clinical rehab liaison before breakfast Commonly known as: SYNTHROID MUCINEX [...] Medicine, Geriatric Medicine Relationship: PCP - General [address] [facility] [address] [facility] [address] Next Steps: Follow up Cosigned by Saqib [...] hours. Please call Carolyne Prater at the [facility] next week to get an appointment for drain removal. The number to call is [phone]. The drain must be putting out under [...] Henry on 01/07 at 10:15am. Please call [phone] to confirm your follow up appointment. Please follow-up with your primary care provider for management of your thyroid supplementation. Questions: If you have any concerns or questions, or develop worrisome symptoms such as worsening pain or swelling, bleeding, fever, or vomiting, call your doctor. Use [phone] if you are calling during weekday business hours (8am-5pm Wednesday through Wednesday), otherwise call [phone] and ask for the ENT resident liquefaction plant operator. documented in this encounter Medications at Time [...] 1 tablet (150 mcg total) by mouth clinical rehab liaison before breakfast 60 tablet 1 12/31/2019 0 [...] 1 tablet (150 mcg total) by mouth clinical rehab liaison before breakfast 60 tablet 1 12/31/2019 0 [...] Obtained From Patient Referral Data Referral Source Lift Electrician Referral Reason Discharge Planning Prior to Admission Primary Caregiver Self Support System Spouse/Significant Other Support system contact info (name, phone, availablity) Alon Gtz SPOUSE [phone] Home Care Services No Durable Medical Equipment [...] follow for planning and referrals as needed. [phone]. Spouse to provide ride home * Ger [...] Saqib Henry MD - 12/04/2019 2:30 PM SUPERVISOR MALT HOUSE [facility] Department of Otolaryngology Division of Head and Neck Surgery 12/04/2019 Gunjan Gtz 1944 [id number] Referred by: Dr. Santino Mcgarry Chief Complaint: [...] substernal total thyroidectomy Saqib Henry MD PhD Sales Coordinator Attending, Head and Neck Surgery Department of Otolaryngology [facility] [phone] (Clinical nurse Jacquie Hensley RN) Pager [phone] RVISOR MALT HOUSE documented in this encounter Miscellaneous Notes * [...] of the thyroid that was removed, 10 Serbian drainwas placed within the bed and secured [...] Resident - Assisting Anesthesiologist: Elda Watts MD RN IMMUNOLOGY: Fabi Thomason CRNA; Portia Tanner CRNA Student Nurse Cash Sales Audit Clerk: RASHID Arguelles Organ Tuner Electronic: Prem Woodruff RN Organ Tuner Electronic Relief: Hanna Pepe RN Scrub: Madie Jacobo [...] Contact Info) Description 10/23/2024 10:00 AM SUPERVISOR MALT HOUSE Hospital Encounter [facility] Operating Room [address] [place] [address] [place] [address] [address] 10/23/2024 10:00 AM SUPERVISOR MALT HOUSE - 10/23/2024 1:00 PM SUPERVISOR MALT HOUSE Surgery [facility] Operating Room [address] [place] [address] [place] [address] [address] ARTHROPLASTY TOTAL KNEE LEFT Scheduled Procedures Name Priority Associated Diagnoses Date/Ti me ARTHROPLASTY TOTAL KNEE left knee osteoarthritis 10/23/2024 10:00 AM SUPERVISOR MALT HOUSE ESOPHAGOGASTRODUODENOSCOPY Dysphagia, unspecified type documented as of [...] CDT) Sodium 139 135 - 145 mmol/L [facility] Potassium, pl 4.5 3.3 - 4.9 mmol/L [facility] Chloride 105 97 - 110 mmol/L [facility] CO2 25 22 - 32 mmol/L [facility] Anion gap 9 2 - 15 mmol/L [facility] BUN 15 8 - 25 mg/dL [facility] Creatinine 1.21 0.80 - 1.30 mg/dL [facility] Glucose 164 70 - 199 mg/dL [facility] [...] 2017. Calcium 8.5 8.5 - 10.3 mg/dL [facility] Phosphorus, pl 2.3 2.3 - 4.5 mg/dL [facility] Albumin 3.6 3.5 - 5.0 g/dL [facility] Blood specimen (specimen) 12/29/2019 2:38 AM CDT 12/29/2019 2:59 AM CDT Saqib Henry MD LAB BLOOD ORDERABLES F inal Result [facility] Department [place] [address] * (ABNORMAL) Renal function panel (12/28/2019 8:36 PM CDT) Sodium 137 135 - 145 mmol/L [facility] Potassium, pl 4.1 3.3 - 4.9 mmol/L [facility] Chloride 105 97 - 110 mmol/L [facility] CO2 26 22 - 32 mmol/L [facility] Anion gap 6 2 - 15 mmol/L [facility] BUN 15 8 - 25 mg/dL [facility] Creatinine 1.18 0.80 - 1.30 mg/dL [facility] Glucose 202(H) 70 - 199 mg/dL [facility] [...] 2017. Calcium 8.2(L) 8.5 - 10.3 mg/dL [facility] Phosphorus, pl 2.0(L) 2.3 - 4.5 mg/dL [facility] Albumin 3.5 3.5 - 5.0 g/dL [facility] Blood specimen (specimen) 12/28/2019 8:36 PM CDT 12/28/2019 8:51 PM CDT Saqib Henry MD LAB BLOOD ORDERABLES F inal Result Performing Organization Address City/[facility] Co de Phone Number [facility] Department [place] [address] * (ABNORMAL) Vitamin D 25 hydroxy (12/28/2019 2:20 PM CDT) [facility] Vitamin D 25-OH 17(L) 30 - 80 ng/mL [facility] Blood specimen (specimen) 12/28/2019 2:20 PM CDT 12/28/2019 2:39 PM CDT Saqib Henry MD LAB BLOOD ORDERABLES F inal Result Performing Organization Address [facility] de Phone Number [facility] Department [place] [address] * Renal function panel (12/28/2019 2:20 PM CDT) [facility] Sodium 142 135 - 145 mmol/L [facility] Potassium, pl 4.3 3.3 - 4.9 mmol/L [facility] Chloride 107 97 - 110 mmol/L [facility] CO2 28 22 - 32 mmol/L [facility] Anion gap 7 2 - 15 mmol/L [facility] BUN 14 8 - 25 mg/dL [facility] Creatinine 1.17 0.80 - 1.30 mg/dL [facility] Glucose 113 70 - 199 mg/dL [facility] [...] 2017. Calcium 8.8 8.5 - 10.3 mg/dL [facility] Phosphorus, pl 2.5 2.3 - 4.5 mg/dL [facility] Albumin 3.8 3.5 - 5.0 g/dL [facility] Blood specimen (specimen) 12/28/2019 2:20 PM CDT 12/28/2019 2:39 PM CDT Saqib Henry MD LAB BLOOD ORDERABLES F inal Result Performing Organization Address City/[facility] Co de Phone Number [facility] [place] [address] * Magnesium (12/28/2019 2:20 PM CDT) Magnesium 1.8 1.4 - 2.5 mg/dL [facility] Blood specimen (specimen) 12/28/2019 2:20 PM CDT 12/28/2019 2:39 PM CDT Saqib Henry MD LAB BLOOD ORDERABLES F inal Result Performing Organization Address [facility] Co de Phone Number [facility] [place] [address] * PTH (12/28/2019 2:18 PM CDT) PTH 58 15 - 65 pg/mL [facility] Blood specimen (specimen) 12/28/2019 2:18 PM CDT 12/28/2019 3:05 PM CDT Saqib Henry MD LAB BLOOD ORDERABLES F inal Result Performing Organization Address [facility] Co de Phone Number [facility] Department [place] [address] * Surgical pathology (12/28/2019 12:49 PM CDT) Tissue (Thyroid) 12/28/2019 12:49 PM CDT Narrative PATHOLOGY [facility] - 01/03/2020 5:04 PM CDT EPIC results best viewed via link to PDF [facility] [place] [address] SURGICAL PATHOLOGY REPORT FINAL Patient Name: ?? GUNJAN GTZ Gender: ??M : ??1944 (Age: 75) Address: ??[address] [place] [address] ??[address] Hospital #: ??[id number] Taken:12/28/2019 Received:12/28/2019 Reported: 01/03/2020 Patient Type: [facility] Inpatient ?? Service: Surgery Location: [place] [address] Physician(s): ??Saqib Henry M.D., PH.D. Santino Funk M.D. MD Kostas Bearden M.D. Diagnosis: Thyroid, total thyroidectomy: ? - Macro- and microfollicular colloid nodules with degenerative changes consistent with multinodular goiter [facility]/01/01/2020 20:17 By this signature, I attest [...] separate fragment inked blue. Labeled A1 - player services representative left upper pole; A2 - player services representative left upper pole nodule; A3 to A5 - player services representative sections of left dominant nodule periphery; A6 - player services representative left inferior pole; A7 - isthmus nodule (ends not submitted); A8 - player services representative right superior lobe; A9 - right mid lobe nodule (ends not submitted); A10 - player services representative right inferior nodule (ends not submitted); A11 ??player services representative separate fragment. Jar 0. ?? [facility]/12/29/2019 14:38 Gross Resident:Isra Collado MD By this signature, I attest that the above diagnosis is based upon my personal examination of the slides(and/or other material). The performance characteristics of some immunohistochemical stains, fluorescence in-situ hybridization tests and immunophenotyping by flow cytometry cited in this report (if any) were determined by the Surgical Pathology Department at [facility] as part of an ongoing quality improvement consultant program and in compliance with federally mandated [...] determined by the Surgical Pathology Department of [facility]. ??It has not been cleared or approved by the U. S. Food and Drug Administration. IMAGES AND SCANNED DOCUMENTS, IF INCLUDED, ONLY VIEWABLE IN PDF VERSION OF REPORT Saqib Henry MD LAB PATHOLOGY ORDERABL ES Final Result PATHOLOGY [facility] 3rd Floor [place], [place] [phone] documented in this encounter Visit Diagnoses Diagnosis [...] puff, inhalation, Every 4 hours PRN (respiratory support technician), wheezing, Starting on Wed12/28/19 at 1719, Phase [...] 2:56 PM CDT 0.2 mg influenza trivalent [id number] (FLUZONE HIGH DOSE) 180 mcg/0.5 mL vaccine [...] Barreto RN) 2055 (Given - Provider: Sigrid Barreot, RN) levothyroxine (SYNTHROID) tablet 150 mcg 150 [...] puff, inhalation, Every 4 hours PRN (respiratory support technician), wheezing, Starting on Jo 12/28/19 at 1719, [...] - Provider: Simi Reina RN) influenza trivalent [id number] (FLUZONE HIGH DOSE) 180 mcg/0.5 mL vaccine [...] 12/09 documented in this encounter Care Teams Drop Clipper Relationship Specialty [place] [address] [facility] [address] [place] [address] PCP - General 11/12/16 03/11/22 documented as of this encounter
--- OUTSIDE RECORDS SUMMARY | 2024-10-11 03:06 | XMS_ITS | Encounter Summary ---
Author Organization [facility] Address [address] [place] [address] Care Team Providers Care Stitcher Tape Controlled Machine Name Role Phone Santino Funk MD Primary Care Provider + Reason for Referral * Diagnostic Imaging (Routine) - Closed Specialty Diagnoses / Procedures Referred By Contac t Referred To Contact Diagnoses Nontoxic goiter, unspecified Procedures US Thyroid Santino Funk MD Phone: tel: fax: [address] [phone] Referral ID Status Reason Start Date Expiration Date Visits Re quested Visits Authorized [id number] Closed 11/13/2019 05/24/2021 1 1 TRONIC WARFARE LINGUIST Reason for Visit * Diagnostic Imaging (Routine) - Closed Specialty Diagnoses / Procedures Referred By Dillan mccallum Referred To Contact Diagnoses Nontoxic goiter, unspecified Procedures US Thyroid Santino Funk MD Phone: tel: fax: [address] [phone] Referral ID Status Reason Start Date Expiration Date Visits Re quested Visits Authorized [id number] Closed 11/13/2019 05/24/2021 1 1 Encounter Details Date Type Department Care Team (Latest Contact Info) Description 11/17/2019 8:56 AM ELECTRONIC WARFARE LINGUIST - 11/17/2019 11:59 PM ELECTRONIC WARFARE LINGUIST Hospital Encounter [facility] ` [address] [place] [address] [place] [address] [facility] [address] [place] [address] Nontoxic goiter, unspecified Discharge Disposition: Discharge to [...] file Legal Sex Male 3:25 PM ELECTRONIC WARFARE LINGUIST Gender Identity Not on file Sexual Orientation [...] (Latest Contact Info) Description 10/23/2024 10:00 AM [facility] Hospital Encounter [facility] Operating Room [address] [place] [address] [place] [address] [id number] 10/23/2024 10:00 AM ELECTRONIC WARFARE LINGUIST - 10/23/2024 1:00 PM ELECTRONIC WARFARE LINGUIST Surgery [facility] Operating Room [address] [place] [address] [place] [address] [facility] [address] [place] [address] ARTHROPLASTY TOTAL KNEE LEFT Scheduled Procedures Name Priority Associated Diagnoses Date/Ti me ARTHROPLASTY TOTAL KNEE left knee osteoarthritis 10/23/2024 10:00 AM ELECTRONIC WARFARE LINGUIST ESOPHAGOGASTRODUODENOSCOPY Dysphagia, unspecified type documented as of this encounter Procedures Procedure Name Priority Date/Time Associated Diagnosis Comments US THYROID Schedule Routine, Read Routine (OP Routine) 11/17/2019 9:54 AM ELECTRONIC WARFARE LINGUIST Nontoxic goiter, unspecified documented in this encounter Results * US Thyroid (11/17/2019 9:54 AM ELECTRONIC WARFARE LINGUIST) Anatomical Region Laterality Modality Head and Neck N/A Ultrasound 11/17/2019 10:2 9 AM ELECTRONIC WARFARE LINGUIST Impressions 11/17/2019 10:36 AM ELECTRONIC WARFARE LINGUIST THE COMPLEX NODULES WITHIN EACH LOBE, DEPENDING UPON ASSOCIATED CLINICAL CONSIDERATIONS, MAY BE EITHER FOLLOWED WITH REPEAT ULTRASOUND AT 6 MONTH INTERVALS UNTIL STABLE OR MAY UNDERGO ADDITIONAL EVALUATION BY ULTRASOUND-GUIDED BIOPSY. COMPLICATION FROM BLEEDING RISK WILL BE HIGHER DUE TO THE HYPERVASCULARITY OF THE THYROID GLAND AND THE NODULES. Electronically signed by: Jae Saha M.D. Narrative 11/17/2019 10:36 AM ELECTRONIC WARFARE LINGUIST EXAMINATION: US THYROID HISTORY: Goiter ORDER DATE: [...] unspecified documented in this encounter Care Teams Stitcher Tape Controlled Machine Relationship Specialty [place] [address] [address] PCP - General 11/12/16 03/11/22 documented as of this encounter
--- OUTSIDE RECORDS SUMMARY | 2024-10-11 03:06 | XMS_ITS | Encounter Summary ---
Author Organization [facility] Address [address] [place] [address] Phone Care Team Providers Care Property Assistant Name Role Phone Santino Funk MD Primary Care Provider + Encounter Details Date Type Department Care Team (Late st Contact Info) Description 01/01/2020 Telephone [facility] ([facility]) - [facility] ENT [address] [facility] Advanced Medicine 11th [place] [address] [place] [address] Jacquie Hensley RN Social History [...] on file Legal Sex Male 3:25 PM CARPENTER HELPER Gender Identity Not on file Sexual [...] (Latest Contact Info) Description 10/23/2024 10:00 AM CARPENTER HELPER Hospital Encounter [facility] Operating Room [address] [place] [address] [place] [address] [address] 10/23/2024 10:00 AM CARPENTER HELPER - 10/23/2024 1:00 PM CARPENTER HELPER Surgery [facility] Operating Room [address] [place] [address] [place] [address] [address] ARTHROPLASTY TOTAL KNEE LEFT Scheduled Procedures Name Priority Associated Diagnoses Date/Ti me ARTHROPLASTY TOTAL KNEE left knee osteoarthritis 10/23/2024 10:00 AM CARPENTER HELPER ESOPHAGOGASTRODUODENOSCOPY Dysphagia, unspecified type documented as of this encounter Visit Diagnoses Not on filedocumented in this encounter Care Teams Property Assistant Relationship Specialty [place] [address] [facility] [address] [place] [address] PCP - General 11/12/16 03/11/22 documented as of this encounter
--- OUTSIDE RECORDS SUMMARY | 2024-10-11 03:06 | XMS_ITS | Encounter Summary ---
Author Organization [facility] Healthcare Address [address] [place] [address] Care Team Providers Care Charcoal Unloader Name Role Phone Santino Funk MD Primary Care Provider + Encounter Details Date Type Department Care Team (Late st Contact Info) Description 12/02/2018 3:10 PM REAL ESTATE SALES SUPERVISOR Lab [facility] [address] [place] [address] [place] [address] [facility] [address] [place] [address] Discharge Disposition: Discharge to home or self care Social History Tobacco Use Types Packs/Day Years Used Date Smoking Tobacco: Former Smokeless Tobacco: Never Alcohol Use Standard Drinks/Week Comments Yes 0 (1 standard drink = 0.6 oz pur e alcohol) Sex and Gender Information Value Date Recorded Sex Assigned at Not on file Legal Sex Male 3:25 PM REAL ESTATE SALES SUPERVISOR Gender Identity Not on file Sexual Orientation Not on file documented as of this encounter Discharge Disposition Disposition Code Departure Means Destination Discharge to home or self care documented in this encounter Plan of Treatment Upcoming Encounters Date Type Department Care Team (Latest Contact Info) Description 10/23/2024 10:00 AM REAL ESTATE SALES SUPERVISOR Hospital Encounter [facility] Operating Room [address] [place] [address] [place] [address] [facility] [address] [place] [address] 10/23/2024 10:00 AM REAL ESTATE SALES SUPERVISOR - 10/23/2024 1:00 PM REAL ESTATE SALES SUPERVISOR Surgery [facility] Operating Room [address] [place] [address] [place] [address] [facility] [address] [place] [address] ARTHROPLASTY TOTAL KNEE LEFT Scheduled Procedures Name Priority Associated Diagnoses Date/Ti me ARTHROPLASTY TOTAL KNEE left knee osteoarthritis 10/23/2024 10:00 AM REAL ESTATE SALES SUPERVISOR ESOPHAGOGASTRODUODENOSCOPY Dysphagia, unspecified type documented as of this encounter Procedures Procedure Name Priority Date/Time Associated Diagnosis Comments URINALYSIS, MACROSCOPIC Routine 12/02/2018 3:04 PM REAL ESTATE SALES SUPERVISOR documented in this encounter Results * Urinalysis, macroscopic (12/02/2018 3:04 PM REAL ESTATE SALES SUPERVISOR) Color, ur Yellow Yellow CERNER CH Clarity, [...] CH Urine, clean voided 12/02/2018 3:04 PM REAL ESTATE SALES SUPERVISOR 12/02/2018 3:04 PM REAL ESTATE SALES SUPERVISOR Narrative [facility] - 12/02/2018 7:35 PM REAL ESTATE SALES SUPERVISOR ?? Urine pH is affected by diet, medications, systemic acid-base disturbances, and renal tubular function. ??pH may affect urinary stone formation. ??For example, urine pH below 6.0 may help reduce the tendency for calcium phosphate stones and pH greater than 6.0 may reduce the tendency for uric acid stone formation. Source: [employer]. Last revised 10-21-2017 Santino Funk MD LAB MICROBIOLOGY - GENER AL ORDERABLES Final Result [facility] [address] [address] Department [place] [address] documented in this encounter Visit Diagnoses Not on filedocumented in this encounter Care Teams Charcoal Unloader Relationship Specialty [place] [address] [address] [facility] [address] [place] [address] PCP - General 11/12/16 03/11/22 documented as of this encounter
--- OUTSIDE RECORDS SUMMARY | 2024-10-11 03:06 | XMS_ITS | Encounter Summary ---
Author Organization [facility] Address [address] [facility] [address] [place] [address] Care Team Providers Care Benefits Advisor Name Role Phone Santino Funk MD Primary Care Provider + Reason for Visit * Reason Comments Follow-up Follow-up Encounter Details Date Type Department Care Team (Latest Contact Info) Description 12/27/2018 2:45 PM CDT Office Visit [facility] [address] [address] [place] [address] [facility] [address] [place] [address] Primary osteoarthritis of left knee [...] on file Legal Sex Male 3:25 PM FINAL EXPENSE AGENT Gender Identity Not on file Sexual [...] (Latest Contact Info) Description 10/23/2024 10:00 AM FINAL EXPENSE AGENT Hospital Encounter [facility] Operating Room [address] [place] [address] [place] [id number] [place] [address] 10/23/2024 10:00 AM FINAL EXPENSE AGENT - 10/23/2024 1:00 PM FINAL EXPENSE AGENT Surgery [facility] Operating Room [address] [place] [address] [place] [address] [facility] [address] [place] [address] ARTHROPLASTY TOTAL KNEE LEFT Scheduled Procedures Name Priority Associated Diagnoses Date/Ti me ARTHROPLASTY TOTAL KNEE left knee osteoarthritis 10/23/2024 10:00 AM FINAL EXPENSE AGENT ESOPHAGOGASTRODUODENOSCOPY Dysphagia, unspecified type documented as of this encounter Visit Diagnoses Diagnosis Primary osteoarthritis of left knee- Primary documented in this encounter Care Teams Benefits Advisor Relationship Specialty [place] [address] [facility] [address] [place] [address] PCP - General 11/12/16 03/11/22 documented as of this encounter
--- OUTSIDE RECORDS SUMMARY | 2024-10-11 03:06 | XMS_ITS | Encounter Summary ---
Author Organization [facility] Address [address] [place] [address] Care Team Providers Care Waterworks Operator Name Role Phone Santino Funk MD Primary Care Provider + Encounter Details Date Type Department Care Team (Late st Contact Info) Description 12/28/2019 10:47 AM CDT Anesthesia Event [facility] Operating Room [address] [place] [address] Elda Watts MD [address] [place] [address] Joe Mojica MD [address] [place] [address] Anesthesia Record Procedure Summary Procedure Name Responsible [...] Per order 12/28/19 1109 by Rome Maki CARDIOVASCULAR SURGEON 12/28/19 1500 by Maritza Ross, MARAH ETT [...] file Legal Sex Male 3:25 PM WOOD CREW SUPERVISOR Gender Identity Not on file Sexual [...] Procedure Summary Date: 12/28/19 Room / Location: [facility] OR POD 5 ROOM 219 / [facility] [...] - patient participated Level of consciousness: arouses environmental health aide Pain score: 6 Pain management: satisfactory to [...] Elda Watts MD - 12/14/2019 9:08 AM WOOD CREW SUPERVISOR Images from the original note were not included. [facility] Preoperative Assessment and Planning Preoperative Evaluation [facility] (Pod[facility] 2[facility]3/5/[facility]) Date: 12/14/19 Anesthesia Evaluation Abrahan Gtz Jr. [...] Cardiovascular Pertinent negatives: hypertension ; CAD ; RI ; atrial fibrillation; DVT/PE; negative for CHF [...] HERNIA REPAIR 1980 Hiatal Hernia repair ??? NM ABDOMEN SURGERY PROC UNLISTED Hernia Repair - [...] Medication protocol when under care of a CARDIOVASCULAR SURGEON Planned anesthesia: General Team communication plan: oral ET tube Comments: NIM tube 7.0 ID Induction: Induction: intravenous. Postoperative Plan: Postoperative administration opioids intended. No postoperative mechanical ventilation intended. Patient's planned disposition post procedure is 23 hour admit. Informed Consent: Discussed plan with CARDIOVASCULAR SURGEON. Anesthesia plan and risks discussed with patient. Consent and Attending signature: I and/or my designee have discussed the anesthesia plan, benefits, possible alternatives, parental presence at time of induction (if indicated), and clinically relevant risks that may include dental injury, unintentional awareness, and/or other complications. The patient and/or parent/legal guardian understand, and agree to proceed. All questions answered. CREW SUPERVISOR CREW SUPERVISOR CREW SUPERVISOR documented in this encounter Plan of Treatment Upcoming Encounters Date Type Department Care Team (Latest Contact Info) Description 10/23/2024 10:00 AM WOOD CREW SUPERVISOR Hospital Encounter [facility] Operating Room [address] [place] [address] [place] [phone] [place] [address] 10/23/2024 10:00 AM WOOD CREW SUPERVISOR - 10/23/2024 1:00 PM WOOD CREW SUPERVISOR Surgery [facility] Operating Room [address] [place] [address] [place] [address] [address] ARTHROPLASTY TOTAL KNEE LEFT Scheduled Procedures Name Priority Associated Diagnoses Date/Ti me ARTHROPLASTY TOTAL KNEE left knee osteoarthritis 10/23/2024 10:00 AM WOOD CREW SUPERVISOR ESOPHAGOGASTRODUODENOSCOPY Dysphagia, unspecified type documented as of this encounter Procedures Procedure Name Priority Date/Time Associated Diagnosis Comments NM AN PROCEDURE PLACEHOLDER Routine 12/28/2019 11:22 AM CDT NM AN PROCEDURE PLACEHOLDER Routine 12/28/2019 11:19 AM CDT NM AN ELECTIVE ENDOTRACHEAL AIRWAY Routine 12/28/2019 11:19 AM CDT documented in this encounter Results * NM AN PROCEDURE PLACEHOLDER (12/28/2019 11:22 AM CDT) [...] MD ANESTHESIA ORDERABLES Final Resu lt * NM AN ELECTIVE ENDOTRACHEAL AIRWAY, NM AN PROCEDURE PLACEHOLDER (12/28/2019 11:19 AM CDT) [...] 12/28/2019 documented in this encounter Care Teams Waterworks Operator Relationship Specialty [place] [address] [place] [address] PCP - General 11/12/16 03/11/22 documented as of this encounter
--- OUTSIDE RECORDS SUMMARY | 2024-10-11 03:06 | XMS_ITS | Encounter Summary ---
Author Organization [facility] Address [address] [facility] [address] [place] [address] Care Team Providers Care Grocery Department Manager Name Role Phone Santino Funk MD Primary Care Provider + Encounter Details Date Type Department Care Team (Late st Contact Info) Description 12/07/2018 Telephone [facility] [address] [address] Janny Vera Social History Tobacco Use Types Packs/Day Years Used Date Smoking Tobacco: Former Smokeless Tobacco: Never Alcohol Use Standard Drinks/Week Comments Yes 0 (1 standard drink = 0.6 oz pur e alcohol) Sex and Gender Information Value Date Recorded Sex Assigned at Not on file Legal Sex Male 3:25 PM MACHINE TOOL OPERATOR Gender Identity Not on file Sexual Orientation Not on file documented as of this encounter Miscellaneous Notes * Telephone Encounter - Janny Vera - 12/07/2018 11:44 AM CST appt made for 1 pm today thanks. INE TOOL OPERATOR * Telephone Encounter - Jossie Montalvo PA - 12/07/2018 11:39 AM CST If he wants to come in this afternoon I can see him INE TOOL OPERATOR * Telephone Encounter - Janny Vera - 12/07/2018 11:22 AM CST Stated he is having trouble walking, would we want him to come in to be seen by a PA since Grimshawis out or give him a call? Please advise. INE TOOL OPERATOR documented in this encounter Plan of Treatment Upcoming Encounters Date Type Department Care Team (Latest Contact Info) Description 10/23/2024 10:00 AM MACHINE TOOL OPERATOR Hospital Encounter [facility] Operating Room [address] [place] [address] [place] [address] [address] 10/23/2024 10:00 AM MACHINE TOOL OPERATOR - 10/23/2024 1:00 PM MACHINE TOOL OPERATOR Surgery [facility] Operating Room [address] [place] [address] [place] [address] [address] ARTHROPLASTY TOTAL KNEE LEFT Scheduled Procedures Name Priority Associated Diagnoses Date/Ti me ARTHROPLASTY TOTAL KNEE left knee osteoarthritis 10/23/2024 10:00 AM MACHINE TOOL OPERATOR ESOPHAGOGASTRODUODENOSCOPY Dysphagia, unspecified type documented as of this encounter Visit Diagnoses Not on filedocumented in this encounter Care Teams Grocery Department Manager Relationship Specialty [place] [address] [address] PCP - General 11/12/16 03/11/22 documented as of this encounter
--- OUTSIDE RECORDS SUMMARY | 2024-10-11 03:06 | XMS_ITS | Encounter Summary ---
Author Organization [facility] Care Team Providers Care Documentum Consultant Name Role Phone Santino Funk MD [...] on file Legal Sex Male 3:25 PM CANE BURNER Gender Identity Not on file Sexual [...] (Latest Contact Info) Description 10/23/2024 10:00 AM CANE BURNER Hospital Encounter [facility] Operating Room [address] [place] [address] [place] [address] [id number] 10/23/2024 10:00 AM CANE BURNER - 10/23/2024 1:00 PM CANE BURNER Surgery [facility] Operating Room [address] [place] [address] [place] [address] [address] [facility] [address] [place] [address] ARTHROPLASTY TOTAL KNEE LEFT Scheduled Procedures Name Priority Associated Diagnoses Date/Ti me ARTHROPLASTY TOTAL KNEE left knee osteoarthritis 10/23/2024 10:00 AM CANE BURNER ESOPHAGOGASTRODUODENOSCOPY Dysphagia, unspecified type documented as of this encounter Visit Diagnoses Not on filedocumented in this encounter Care Teams Documentum Consultant Relationship Specialty [place] [address] [address] [facility] [address] [place] [address] PCP - General 11/12/16 03/11/22 documented as of this encounter
--- OUTSIDE RECORDS SUMMARY | 2024-10-11 03:06 | XMS_ITS | Encounter Summary ---
Author Organization [facility] Address [address] [facility] [address] [place] [address] Care Team Providers Care Psychometrist Name Role Phone Santino Funk MD Primary Care Provider + Reason for Referral * (Routine) - Closed Specialty Diagnoses / Procedures Referred By Contac t Referred To Contact Diagnoses Transient ischemic attack (TIA) Left sided numbness Procedures Transthoracic Echo Complete W Doppler/[place] [address] [place] [address] Phone: tel: fax: [address] [phone] Referral ID Status Reason Start Date Expiration Date Visits Re quested Visits Authorized [id number] Closed 02/07/2020 08/18/2021 1 1 * Diagnostic Imaging (Routine) - Closed Specialty Diagnoses / Procedures Referred By Dillan t Referred To Contact Diagnoses Transient ischemic attack (TIA) Left sided numbness Procedures [place] [address] [place] [address] Phone: tel: fax: Referral ID Status Reason Start Date Expiration Date Visits Re quested Visits Authorized [id number] Closed 02/07/2020 08/18/2021 1 1 * Diagnostic Imaging (Routine) - Closed Specialty Diagnoses / Procedures Referred By Dillan t Referred To Contact Radiology Diagnoses 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) Transient ischemic attack (TIA) Left sided numbness Procedures MRI Brain [place] [address] [address] Phone: tel: fax: [facility] [id number] [place] [phone] Referral ID Status Reason Start Date Expiration Date Visits Re quested Visits Authorized [id number] Closed 02/07/2020 08/18/2021 1 1 Reason for Visit * Reason Comments Memory Loss Encounter Details Date Type Department Care Team (Late Contact Info) Description 02/07/2020 10:30 AM CDT Office Visit [facility] [address] [address] [place] [address] [address] Late onset Alzheimer's disease without [...] on file Legal Sex Male 3:25 PM GLOBAL PRESIDENT Gender Identity Not on file Sexual [...] diagnosed with mild cognitive impairment with a [facility] Mental status score of 22. He was [...] remembering only that she was in the [facility] Physical Exam Constitutional: General: He is awake. Neurological: Mental Status: He is alert. Psychiatric: Speech: Speech normal. Assessment/Plan: 1. The patient's symptoms have progressed he has a dementia of the Alzheimer's type his [facility] Mental status score is 20 indicative [...] 1 tablet (150 mcg total) by mouth product planner before breakfast, Disp: 60 tablet, Rfl: 1 [...] file Gets together: Not on file Attends orthodox service: Not on file Active member of [...] (Latest Contact Info) Description 10/23/2024 10:00 AM GLOBAL PRESIDENT Hospital Encounter [facility] Operating Room [address] [place], [place] [phone] [place]kes [place] [address] [place] [address] 10/23/2024 10:00 AM GLOBAL PRESIDENT - 10/23/2024 1:00 PM GLOBAL PRESIDENT Surgery [facility] Operating Room [address] [place] [address] [place] [phone] [place] [id number] ARTHROPLASTY TOTAL KNEE LEFT Scheduled Procedures Name Priority Associated Diagnoses Date/Ti me ARTHROPLASTY TOTAL KNEE left knee osteoarthritis 10/23/2024 10:00 AM GLOBAL PRESIDENT ESOPHAGOGASTRODUODENOSCOPY Dysphagia, unspecified type documented as of this encounter Results * TRANSTHORACIC ECHO (TTE) COMPLETE W DOPPLER/CF WO CONTRAST (02/14/2020 11:20 AM CDT) Anatomical Region Laterality Modality Ultrasound 02/14/2020 10:5 2 AM CDT Narrative 02/14/2020 2:33 PM CDT [place] [id number] Echocardiogram Report Patient Name: GUNJAN GTZ : 1944 Study Date: 02/14/2020 10:52:28 AM Gender: M Tech: Location: [facility] Ref.Provider: NAYAN MAHAJAN Height(Cm): 182 [...] 0.60 - 0.90 ] cm LVOT Peak [place] 0.85 [ 0.70 - 1.10 ] m/s [...] Procedure Note Carolyne Mendiola DO - 02/14/2020 [place] [address] Echocardiogram Report Patient Name: GUNJAN GTZ : 1944 Study Date: 02/14/2020 10:52:28 AM Gender: M Tech: Location: [facility] Ref.Provider: NAYAN MAHAJAN Height(Cm): 182 [...] regurgitation. Electronically Signed By: Carolyne Mendiola DO, MERGED WITH [facility], [facility] 2020-02-14 14:33:55 CDT CC: CC: us [...] previous. ??Normal flow-voids are seen within the [place]. ??Posterior fossa the brain appears [...] previous. Normal flow-voids are seen within the [place]. Posterior fossa the brain appears [...] numbness documented in this encounter Care Teams Psychometrist Relationship Specialty [place] [address] [address] PCP - General 11/12/16 03/11/22 documented as of this encounter
--- OUTSIDE RECORDS SUMMARY | 2024-10-11 03:06 | XMS_ITS | Encounter Summary ---
Author Organization [facility] Address [address] [place] [address] Phone Care Team Providers Care Machine Maintenance Name Role Phone Santino Funk MD Primary Care Provider + Encounter Details Date Type Department Care Team (Late st Contact Info) Description 01/04/2020 10:00 AM CDT Office Visit [facility] - [facility] ENT [address] [facility] 11th [place] [address] [place] [address] Carolyne Prater PA [address] [place] [address] [place] (Primary Dx) Social History Tobacco Use Types Packs/Day Years Used Date Smoking Tobacco: Former Cigarettes 1 966 - 5917 Smokeless Tobacco: Never Alcohol Use Standard Drinks/Week Comments Yes 1 (1 standard drink = 0.6 oz pur e alcohol) PHQ-2 Answer Date Recorded PHQ-2 Score 0 12/12/2018 Sex and Gender Information Value Date Recorded Sex Assigned at Not on file Legal Sex Male 3:25 PM GLOBAL MARKETING SPECIALIST Gender Identity Not on file Sexual [...] Prater PA - 01/04/2020 10:00 AM CDT [facility] Department of Otolaryngology - Head & Neck Surgery 01/04/2020 Name: Abrahan Gtz Date of : 1944 CC: drain pull Problem List Endocrine/Metabolic Goiter - Primary Overview Added automatically from request for surgery [id number] HISTORY: is POD 7 from total thyroidectomy. [...] Contact Info) Description 10/23/2024 10:00 AM GLOBAL MARKETING SPECIALIST Hospital Encounter [facility] Operating Room [address] [place] [address] [place] [address] [address] 10/23/2024 10:00 AM GLOBAL MARKETING SPECIALIST - 10/23/2024 1:00 PM GLOBAL MARKETING SPECIALIST Surgery [facility] Operating Room [address] [place] [address] [place] [address] [address] ARTHROPLASTY TOTAL KNEE LEFT Scheduled Procedures Name Priority Associated Diagnoses Date/Ti me ARTHROPLASTY TOTAL KNEE left knee osteoarthritis 10/23/2024 10:00 AM GLOBAL MARKETING SPECIALIST ESOPHAGOGASTRODUODENOSCOPY Dysphagia, unspecified type documented as of this encounter Visit Diagnoses Diagnosis Goiter- Primary Goiter, unspecified documented in this encounter Care Teams Machine Maintenance Relationship Specialty [place] [address] [facility] [place] [address] PCP - General 11/12/16 03/11/22 documented as of this encounter
--- OUTSIDE RECORDS SUMMARY | 2024-10-11 03:06 | XMS_ITS | Encounter Summary ---
Author Organization [facility] Address [address] [place] [address] Care Team Providers Care Office Machine Installer Name Role Phone Santino Funk MD Primary Care Provider + Reason for Referral * Diagnostic Imaging (Routine) - Closed Specialty Diagnoses / Procedures Referred By Contac t Referred To Contact Diagnoses Transient ischemic attack (TIA) Left sided numbness Procedures [place] [address] [address] [address] Phone: tel: fax: Referral ID Status Reason Start Date Expiration Date Visits Re quested Visits Authorized [id number] Closed 02/07/2020 08/18/2021 1 1 Reason for Visit * Diagnostic Imaging (Routine) - Closed Specialty Diagnoses / Procedures Referred By Contboone t Referred To Contact Diagnoses Transient ischemic attack (TIA) Left sided numbness Procedures [place] [address] [address] [address] Phone: tel: fax: Referral ID Status Reason Start Date Expiration Date Visits Re quested Visits Authorized [id number] Closed 02/07/2020 08/18/2021 1 1 Encounter Details Date Type Department Care Team (Latest Contact Info) Description 02/14/2020 7:55 AM CDT - 02/14/2020 9:49 AM CDT Hospital Encounter [facility] [address] [place] [address] [place] [address] [facility] [address] [place] [address] Transient ischemic attack (TIA); Left sided numbness [...] file Legal Sex Male 3:25 PM SALES ASSOCIATE Gender Identity Not on file Sexual [...] 1 tablet (150 mcg total) by mouth clay miner before breakfast 60 tablet 1 12/31/2019 0 [...] Contact Info) Description 10/23/2024 10:00 AM SALES ASSOCIATE Hospital Encounter Operating Room [address] [place] [address] [place] [address] [address] 10/23/2024 10:00 AM SALES ASSOCIATE - 10/23/2024 1:00 PM SALES ASSOCIATE Surgery Operating Room [address] [place] [address] [place] [address] [id number] ARTHROPLASTY TOTAL KNEE LEFT Scheduled Procedures Name Priority Associated Diagnoses Date/Ti me ARTHROPLASTY TOTAL KNEE left knee osteoarthritis 10/23/2024 10:00 AM SALES ASSOCIATE ESOPHAGOGASTRODUODENOSCOPY Dysphagia, unspecified type documented as [...] Cat Sandoval M.D. Nayan Mahajan II, MD [facility] PROCEDURES Final Resu lt documented in this encounter Visit Diagnoses Diagnosis Transient ischemic attack (TIA) Unspecified transient cerebral ischemia Left sided numbness documented in this encounter Care Teams Office Machine Installer Relationship Specialty [place] [address] [facility] [address] [address] PCP - General 11/12/16 03/11/22 documented as of this encounter
--- OUTSIDE RECORDS SUMMARY | 2024-10-11 03:07 | XMS_ITS | Encounter Summary ---
Author Organization [facility] Address [address] [facility] [address] [place] [address] Care Team Providers Care Dairy Equipment Mechanic Name Role Phone Santino Funk MD Primary Care Provider + Reason for Referral * Diagnostic Imaging (Routine) - Closed Specialty Diagnoses / Procedures Referred By Contac t Referred To Contact Radiology Diagnoses Primary osteoarthritis of left knee Procedures MRI Knee Left WO Contrast George Sepulveda MD Phone: tel: fax: [facility] Referral ID Status Reason Start Date Expiration Date Visits Re quested Visits Authorized [id number] Closed 08/16/2018 02/25/2020 1 1 EATIONAL LEADER Encounter Details Date Type Department Care Team (Late st Contact Info) Description 08/16/2018 Orders Only [facility] [address] [address] George Sepulveda MD [address] [place] [address] Primary osteoarthritis of left knee (Primary Dx) Social History Tobacco Use Types Packs/Day Years Used Date Smoking Tobacco: Former Smokeless Tobacco: Never Alcohol Use Standard Drinks/Week Comments Yes 0 (1 standard drink = 0.6 oz pur e alcohol) Sex and Gender Information Value Date Recorded Sex Assigned at Not on file Legal Sex Male 3:25 PM RECREATIONAL LEADER Gender Identity Not on file Sexual Orientation Not on file documented as of this encounter Plan of Treatment Upcoming Encounters Date Type Department Care Team (Latest Contact Info) Description 10/23/2024 10:00 AM RECREATIONAL LEADER Hospital Encounter [facility] Operating Room [address] [place] [address] [place] [address] [address] 10/23/2024 10:00 AM RECREATIONAL LEADER - 10/23/2024 1:00 PM RECREATIONAL LEADER Surgery [facility] Operating Room [address] [place] [address] [place] [address] [id number] ARTHROPLASTY TOTAL KNEE LEFT Scheduled Procedures Name Priority Associated Diagnoses Date/Ti me ARTHROPLASTY TOTAL KNEE left knee osteoarthritis 10/23/2024 10:00 AM RECREATIONAL LEADER ESOPHAGOGASTRODUODENOSCOPY Dysphagia, unspecified type documented as of this encounter Results * MRI Knee Left WO Contrast (08/24/2018 6:09 PM RECREATIONAL LEADER) Anatomical Region Laterality Modality Lower Extremities Left Magnetic Reson ance 08/25/2018 2:54 PM RECREATIONAL LEADER Impressions 08/26/2018 9:47 AM RECREATIONAL LEADER 1. ??Degenerative tear involving the body and posterior horn of the medial meniscus. 2. 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 3. ??5 mm osteochondral lesion of the medial femoral condyle, associated with an intra-articular fluid collection, which could represent a ganglion cyst. Electronically signed by: Martir Yang M.D. Narrative 08/26/2018 9:47 AM RECREATIONAL LEADER RESULT: Examination: MRI left knee without contrast [...] encounter documented in this encounter Care Teams Dairy Equipment Mechanic Relationship Specialty [place] [address] [address] PCP - General 11/12/16 03/11/22 documented as of this encounter
--- OUTSIDE RECORDS SUMMARY | 2024-10-11 03:07 | XMS_ITS | Encounter Summary ---
Author Organization [facility] Address [address] [facility] [address] [place] [address] Care Team Providers Care Community Services Officer Name Role Phone Santino Funk MD Primary Care Provider + Reason for Visit * Reason Comments Test Results Test Results Encounter Details Date Type Department Care Team (Latest Contact Info) Description 09/06/2018 8:15 AM POSITION CLASSIFIER Office Visit [facility] [address] [facility] [address] [place] [address] [place] [address] [facility] [address] [place] [address] Subchondral insufficiency fracture of condyle [...] on file Legal Sex Male 3:25 PM POSITION CLASSIFIER Gender Identity Not on file Sexual Orientation Not on file documented as of this encounter Last Filed Vital Signs Vital Sign Reading Time Taken Comments Blood Pressure - - Pulse - - Temperature - - Respiratory Rate - - Oxygen Saturation - - Inhaled Oxygen Concentration - - Weight 101.6 kg (224 lb) 09/06/2018 8:22 AM POSITION CLASSIFIER Height 182.9 cm (6') 09/06/2018 8:22 AM POSITION CLASSIFIER Body Mass Index 30.38 09/06/2018 8:22 AM POSITION CLASSIFIER documented in this encounter Progress Notes * [...] will followup for surgery. George Sepulveda MD TION CLASSIFIER documented in this encounter Plan of Treatment Upcoming Encounters Date Type Department Care Team (Latest Contact Info) Description 10/23/2024 10:00 AM POSITION CLASSIFIER Hospital Encounter [facility] Operating Room [address] [place] [address] [place] [address] [address] 10/23/2024 10:00 AM POSITION CLASSIFIER - 10/23/2024 1:00 PM POSITION CLASSIFIER Surgery [facility] Operating Room [address] [place] [address] [place] [address] [address] ARTHROPLASTY TOTAL KNEE LEFT Scheduled Procedures Name Priority Associated Diagnoses Date/Ti me ARTHROPLASTY TOTAL KNEE left knee osteoarthritis 10/23/2024 10:00 AM POSITION CLASSIFIER ESOPHAGOGASTRODUODENOSCOPY Dysphagia, unspecified type documented as of [...] knee documented in this encounter Care Teams Community Services Officer Relationship Specialty [place] [address] [address] PCP - General 11/12/16 03/11/22 documented as of this encounter
--- OUTSIDE RECORDS SUMMARY | 2024-10-11 03:07 | XMS_ITS | Encounter Summary ---
Author Organization [facility] Address [address] [facility] [address] [place] [address] Care Team Providers Care Citrix Systems Administrator Name Role Phone Santino Funk MD Primary Care Provider + Reason for Visit * Reason Comments Fall Patient reports a tw isting fall out of a chair with constant pain and swelling since Pain Edema Encounter Details Date Type Department Care Team (Latest Contact Info) Description 08/22/2018 9:00 AM FINANCIAL OFFICER Office Visit [facility] [address] [facility] [address] [place] [address] [place] [address] [facility] [address] [place] [address] Primary osteoarthritis of left knee [...] file Legal Sex Male 3:25 PM FINANCIAL OFFICER Gender Identity Not on file Sexual Orientation Not on file documented as of this encounter Last Filed Vital Signs Vital Sign Reading Time Taken Comments Blood Pressure 120/80 08/22/2018 8:59 AM FINANCIAL OFFICER Pulse - - Temperature - - Respiratory Rate - - Oxygen Saturation - - Inhaled Oxygen Concentration - - Weight 102.5 kg (226 lb) 08/22/2018 8:59 AM FINANCIAL OFFICER Height 182.9 cm (6') 08/22/2018 8:59 AM FINANCIAL OFFICER Body Mass Index 30.65 08/22/2018 8:59 AM FINANCIAL OFFICER documented in this encounter Progress Notes * [...] be after that is completed. LORI Craig NCIAL OFFICER documented in this encounter Plan of Treatment Upcoming Encounters Date Type Department Care Team (Latest Contact Info) Description 10/23/2024 10:00 AM FINANCIAL OFFICER Hospital Encounter [facility] Operating Room [address] [place] [address] [place] [address] [address] 10/23/2024 10:00 AM FINANCIAL OFFICER - 10/23/2024 1:00 PM FINANCIAL OFFICER Surgery [facility] Operating Room [address] [place] [address] [place] [address] [address] ARTHROPLASTY TOTAL KNEE LEFT Scheduled Procedures Name Priority Associated Diagnoses Date/Ti me ARTHROPLASTY TOTAL KNEE left knee osteoarthritis 10/23/2024 10:00 AM FINANCIAL OFFICER ESOPHAGOGASTRODUODENOSCOPY Dysphagia, unspecified type documented as of this encounter Visit Diagnoses Diagnosis Primary osteoarthritis of left knee- Primary Acute medial meniscus tear of left knee, subsequent encounter documented in this encounter Care Teams Citrix Systems Administrator Relationship Specialty Start Date End Date [place], [place] [address] [address] PCP - General 11/12/16 03/11/22 documented as of this encounter
--- OUTSIDE RECORDS SUMMARY | 2024-10-11 03:07 | XMS_ITS | Encounter Summary ---
Author Organization [facility] Address [address] [facility] [address] [place] [address] Care Team Providers Care Construction Inspector Name Role Phone Santino Funk MD Primary Care Provider + Reason for Visit * Reason Comments Memory Loss Encounter Details Date Type Department Care Team (Late st Contact Info) Description 08/16/2018 8:30 AM SPICE ROOM WORKER Office Visit [facility] [address] [facility] [place] [address] Nayan Mahajan II, [place] [phone] [place] [address] [place] [address] Mild cognitive impairment (Primary Dx) Social History Tobacco Use Types Packs/Day Years Used Date Smoking Tobacco: Former Smokeless Tobacco: Never Alcohol Use Standard Drinks/Week Comments Yes 0 (1 standard drink = 0.6 oz pur e alcohol) Sex and Gender Information Value Date Recorded Sex Assigned at Not on file Legal Sex Male 3:25 PM SPICE ROOM WORKER Gender Identity Not on file Sexual Orientation Not on file documented as of this encounter Last Filed Vital Signs Vital Sign Reading Time Taken Comments Blood Pressure 126/82 08/16/2018 8:34 AM SPICE ROOM WORKER Pulse 54 08/16/2018 8:34 AM SPICE ROOM WORKER Temperature - - Respiratory Rate 16 08/16/2018 8:34 AM SPICE ROOM WORKER Oxygen Saturation - - Inhaled Oxygen Concentration - - Weight 101.9 kg (224 lb 10.4 oz) 08/16/2018 8:34 AM SPICE ROOM WORKER Height 182.9 cm (6') 08/16/2018 8:34 AM SPICE ROOM WORKER Body Mass Index 30.47 08/16/2018 8:34 AM SPICE ROOM WORKER documented in this encounter Progress Notes * Nayan Mahajan MD - 08/16/2018 8:30 AM [facility] Neurology Abrahan Gtz Jr. CONSULTATION 08/16/2018 OV: [...] is due to follow up with his lidder. The patient comes in with a new [...] a few exits. 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 The patient's symptoms came on [...] Date ??? HERNIA REPAIR Hernia repair ??? AR ABDOMEN SURGERY PROC UNLISTED Hernia Repair - [...] has normal strength. He has a normal Jbqcgx-Bshj-Kydaen Test. Reflex Scores: Tricep reflexes are 1+ [...] Right achilles: 1+ Left achilles: 1+ Right ob tech: 1+ Left ob tech: 1+ Impression and Recommendations. Mild cognitive impairment the patient has a [facility] mental status exam score of 22 indicative [...] this plan of action. Nayan Mahajan MD E ROOM WORKER documented in this encounter Plan of Treatment Upcoming Encounters Date Type Department Care Team (Latest Contact Info) Description 10/23/2024 10:00 AM SPICE ROOM WORKER Hospital Encounter [facility] Operating Room [address] [place] [address] [place] [address] [facility] [address] [place], [place] [address] 10/23/2024 10:00 AM SPICE ROOM WORKER - 10/23/2024 1:00 PM SPICE ROOM WORKER Surgery [facility] Operating Room [address] [place] [address] [place] [address] [address] [facility] [address] [place] [address] ARTHROPLASTY TOTAL KNEE LEFT Scheduled Procedures Name Priority Associated Diagnoses Date/Ti me ARTHROPLASTY TOTAL KNEE left knee osteoarthritis 10/23/2024 10:00 AM SPICE ROOM WORKER ESOPHAGOGASTRODUODENOSCOPY Dysphagia, unspecified type documented as of this encounter Results * Folate (08/16/2018 9:04 AM SPICE ROOM WORKER) Folic acid 7.6 >=3.1 ng/mL MARVIN Comment: Interpretive Data >3 ?Normal 2.5 - 3.0 Indeterminate <2.5 ?Deficient Current interpretive data was last reviewed on 02/03/2016. Blood specimen (specimen) 08/16/2018 9:04 AM SPICE ROOM WORKER 08/16/2018 7:18 PM SPICE ROOM WORKER Narrative MARVIN - 08/16/2018 8:18 PM SPICE ROOM WORKER Nayan Mahajan II, MD LAB BLOOD ORDERABLES Final R esult MARVIN [address] [address] Department [place] [address] * Methylmalonic acid, serum (08/16/2018 9:04 AM SPICE ROOM WORKER) MMA 0.12 <=0.40 nmol/mL MARVIN Comment: ADDITIONAL INFORMATION This test was developed and its performance characteristics determined by [facility] in a manner consistent with CLIA requirements. This test has not been cleared or approved by the U.S. Food and Drug Administration. Test Performed by: [facility] - [address] [address] Blood specimen (specimen) 08/16/2018 9:04 AM SPICE ROOM WORKER 08/16/2018 7:18 PM SPICE ROOM WORKER Narrative MARVIN - 08/21/2018 12:40 PM SPICE ROOM WORKER Nayan Mahajan II, MD LAB BLOOD ORDERABLES Final R esult Performing Organization Address [facility] de Phone Number [facility] [address] [address] Department [place] [address] * (ABNORMAL) TSH reflex to free T4 (08/16/2018 9:04 AM SPICE ROOM WORKER) TSH 0.40(L) 0.45 - 5.33 mcIUnit/mL MARVIN Blood specimen (specimen) 08/16/2018 9:04 AM SPICE ROOM WORKER 08/16/2018 7:18 PM SPICE ROOM WORKER Narrative MARVIN - 08/16/2018 8:07 PM SPICE ROOM WORKER Nayan Mahajan II, MD LAB BLOOD ORDERABLES Final R esult Performing Organization Address [facility] de Phone Number [facility] [address] [address] Department [place] [address] * Vitamin B12 (08/16/2018 9:04 AM SPICE ROOM WORKER) Vitamin B12 706 180 - 920 pg/mL MARVIN Comment: Interpretive Data Reference Interval (greater than 1 year of age) Normal: ? 180 - 920 pg/ml Indeterminate: ??145 - 180 pg/ml Deficient: ? <145 pg/ml Current Interpretive Data was last revised on 2016 Blood specimen (specimen) 08/16/2018 9:04 AM SPICE ROOM WORKER 08/16/2018 7:18 PM SPICE ROOM WORKER Narrative MARVIN FISHER - 08/16/2018 8:19 PM SPICE ROOM WORKER Nayan Mahajan II, MD LAB BLOOD ORDERABLES Final R esult MARVIN [address] [address] Department [place] [address] documented in this encounter Visit Diagnoses Diagnosis [...] 12/30/2019 added in this encounter Care Teams Construction Inspector Relationship Specialty [place] [address] [address] [address] PCP - General 11/12/16 03/11/22 documented as of this encounter
--- OUTSIDE RECORDS SUMMARY | 2024-10-11 03:07 | XMS_ITS | Encounter Summary ---
Author Organization [facility] Address [address] [facility] [address] [place] [address] Care Team Providers Care Parts Finisher Name Role Phone Santino Funk MD Primary Care Provider + Reason for Visit * Reason Comments Post-op Post-op Encounter Details Date Type Department Care Team (Latest Contact Info) Description 09/27/2018 8:30 AM PHP ENGINEER Office Visit [facility] [address] [facility] [address] [place] [address] [place] [address] [facility] [address] [place] [address] Complex tear of medial meniscus [...] on file Legal Sex Male 3:25 PM PHP ENGINEER Gender Identity Not on file Sexual Orientation Not on file documented as of this encounter Last Filed Vital Signs Vital Sign Reading Time Taken Comments Blood Pressure - - Pulse - - Temperature - - Respiratory Rate - - Oxygen Saturation - - Inhaled Oxygen Concentration - - Weight 100 kg (220 lb 6.4 oz) 09/27/2018 8:38 AM PHP ENGINEER Height 182.9 cm (6') 09/27/2018 8:38 AM PHP ENGINEER Body Mass Index 29.89 09/27/2018 8:38 AM PHP ENGINEER documented in this encounter Progress Notes * [...] Future Plan Encouraged patient follow-up with his leather drier regarding his dizzy spells. He wonders if this may be due to the Percocet, he does have hydrocodone at home and I told him he could certainly utilize that as he has taken hydrocodone previously without side effects. Arthroscopic photos were reviewed with the patient. Wound care was discussed. He will follow up in 4 weeks. Outpatient therapy is ordered today. LORI Craig ENGINEER documented in this encounter Plan of Treatment Upcoming Encounters Date Type Department Care Team (Latest Contact Info) Description 10/23/2024 10:00 AM PHP ENGINEER Hospital Encounter [facility] Operating Room [address] [place] [address] [place] [address] [address] 10/23/2024 10:00 AM PHP ENGINEER - 10/23/2024 1:00 PM PHP ENGINEER Surgery [facility] Operating Room [address] [place] [address] [place] [address] [address] ARTHROPLASTY TOTAL KNEE LEFT Scheduled Procedures Name Priority Associated Diagnoses Date/Ti me ARTHROPLASTY TOTAL KNEE left knee osteoarthritis 10/23/2024 10:00 AM PHP ENGINEER ESOPHAGOGASTRODUODENOSCOPY Dysphagia, unspecified type documented as [...] knee documented in this encounter Care Teams Parts Finisher Relationship Specialty [place] [address] [address] PCP - General 11/12/16 03/11/22 documented as of this encounter
--- OUTSIDE RECORDS SUMMARY | 2024-10-11 03:07 | XMS_ITS | Encounter Summary ---
Author Organization [facility] Address [address] [facility] [address] [place] [address] Care Team Providers Care Solar Applications Development Engineer Name Role Phone Santino Funk MD Primary Care Provider + Reason for Referral * Orthopedic (Routine) - Closed Specialty Diagnoses / Procedures Referred By Dillan mccallum Referred To Contact Diagnoses Primary osteoarthritis of left knee Procedures Large Joint Arthrocentesis George Sepulveda MD Phone: tel: fax: Referral ID Status Reason Start Date Expiration Date Visits Re quested Visits Authorized [id number] Closed 08/08/2018 02/17/2020 1 1 * Diagnostic Imaging (Routine) - Closed Specialty Diagnoses / Procedures Referred By Dillan mccallum Referred To Contact Diagnoses Chronic pain of left knee Procedures XR Knee Left 4+ View George Sepulveda MD Phone: tel: fax: Referral ID Status Reason Start Date Expiration Date Visits Re quested Visits Authorized [id number] Closed 08/08/2018 02/17/2020 1 1 Reason for Visit * Reason Comments Pain Encounter Details Date Type Department Care Team (Latest Contact Info) Description 08/08/2018 8:00 AM CDT [facility] [address] [facility] [address] [place] [address] [place] [address] [facility] [address] [place] [address] Primary osteoarthritis of left knee (Primary Dx) Social History Tobacco Use Types Packs/Day Years Used Date Smoking Tobacco: Former Alcohol Use Standard Drinks/Week Comments Yes 0 (1 standard drink = 0.6 oz pur e alcohol) Sex and Gender Information Value Date Recorded Sex Assigned at Not on file Legal Sex Male 3:25 PM INBOUND CALL CENTER REPRESENTATIVE Gender Identity Not on file Sexual [...] cap which he believes stems from the [employer]. He has never had injections. He has [...] (Latest Contact Info) Description 10/23/2024 10:00 AM INBOUND CALL CENTER REPRESENTATIVE Hospital Encounter [facility] Operating Room [address] [place] [address] [place] [address] [place] [address] 10/23/2024 10:00 AM INBOUND CALL CENTER REPRESENTATIVE - 10/23/2024 1:00 PM INBOUND CALL CENTER REPRESENTATIVE Surgery [facility] Operating Room [address] [place] [address] [place] [address] [id number] ARTHROPLASTY TOTAL KNEE LEFT Scheduled Procedures Name Priority Associated Diagnoses Date/Ti me ARTHROPLASTY TOTAL KNEE left knee osteoarthritis 10/23/2024 10:00 AM INBOUND CALL CENTER REPRESENTATIVE ESOPHAGOGASTRODUODENOSCOPY Dysphagia, unspecified type documented as of this encounter Procedures Procedure Name Priority Date/Time Associated Diagnosis Comments XR KNEE LEFT 4 OR MORE VIEWS Schedule Routine, Read Routine (OP Routine) 08/08/2018 9:31 AM CDT Primary osteoarthritis of left knee GA ARTHROCENTESIS ASPIR&/INJ MAJOR JT/BURSA W/O US Routine 08/08/2018 8:00 AM CDT Primary osteoarthritis of left knee documented in this encounter Results * XR Knee Left 4+ View (08/08/2018 9:31 AM CDT) Anatomical Region Laterality Modality Lower Extremities, Knee Left [facility] Narrative 08/08/2018 9:51 AM CDT Radiographs of the left knee reviewed and interpreted these demonstrate moderate medial and patellofemoral joint space narrowing consistent with moderate osteoarthritis us George Sepulveda MD IMG XR PROCEDURES Final R esult * GA ARTHROCENTESIS ASPIR&/INJ MAJOR JT/BURSA W/O US (08/08/2018 8:00 AM CDT) Narrative George Sepulveda MD - 08/08/2018 8:00 AM CDT George Sepulveda MD ? 08/08/2018 ??9:52 AM Large Joint (Hip, Knee, Shoulder) Injection Date/Time: 08/08/2018 9:52 AM Performed by: GEORGE SEPULVEDA Authorized by: GEORGE SEUPLVEDA Large Joint Injection/Aspiration: ??Verbal consent obtained: Yes [...] 12/14/2019 added in this encounter Care Teams Solar Applications Development Engineer Relationship Specialty [place] [address] [address] PCP - General 11/12/16 03/11/22 documented as of this encounter
--- OUTSIDE RECORDS SUMMARY | 2024-10-11 03:07 | XMS_ITS | Encounter Summary ---
Author Organization [facility] Address [address] [facility] [address] [place] [address] Care Team Providers Care Termite Exterminator Name Role Phone Santino Funk MD Primary Care Provider + Reason for Visit * Diagnostic Imaging (Routine) - Closed Specialty Diagnoses / Procedures Referred By Dillan t Referred To Contact Diagnoses Chronic pain of left knee Procedures XR Knee Left 4+ View George Sepulveda MD Phone: tel: fax: Referral ID Status Reason Start Date Expiration Date Visits Re quested Visits Authorized [id number] Closed 08/08/2018 02/17/2020 1 1 Encounter Details Date Type Department Care Team (Latest Contact Info) Description 08/08/2018 9:30 AM CDT - 08/08/2018 11:59 PM CDT Hospital Encounter [facility] [address] [address] Discharge Disposition: Discharge to home or self care Social History Tobacco Use Types Packs/Day Years Used Date Smoking Tobacco: Former Alcohol Use Standard Drinks/Week Comments Yes 0 (1 standard drink = 0.6 oz pur e alcohol) Sex and Gender Information Value Date Recorded Sex Assigned at Not on file Legal Sex Male 3:25 PM PHARMACY OPERATIONS COORDINATOR Gender Identity Not on file [...] Contact Info) Description 10/23/2024 10:00 AM PHARMACY OPERATIONS COORDINATOR Hospital Encounter [facility] Operating Room [address] [place] [address] [place] [address] [facility] [address] [place] [address] 10/23/2024 10:00 AM PHARMACY OPERATIONS COORDINATOR - 10/23/2024 1:00 PM PHARMACY OPERATIONS COORDINATOR Surgery [facility] Operating Room [address] [place] [address] [place] [address] [facility] [address] [place] [address] ARTHROPLASTY TOTAL KNEE LEFT Scheduled Procedures Name Priority Associated Diagnoses Date/Ti me ARTHROPLASTY TOTAL KNEE left knee osteoarthritis 10/23/2024 10:00 AM PHARMACY OPERATIONS COORDINATOR ESOPHAGOGASTRODUODENOSCOPY Dysphagia, unspecified type documented [...] on filedocumented in this encounter Care Teams Termite Exterminator Relationship Specialty [place] [address] [facility] [address] [place] [address] PCP - General 11/12/16 03/11/22 documented as of this encounter
--- OUTSIDE RECORDS SUMMARY | 2024-10-11 03:07 | XMS_ITS | Encounter Summary ---
Author Organization [facility] Address [address] [facility] [address] [place] [address] Care Team Providers Care Poultry Tender Name Role Phone Santino Funk MD Primary Care Provider + Reason for Referral * Diagnostic Imaging (Routine) - Closed Specialty Diagnoses / Procedures Referred By Contac t Referred To Contact Radiology Diagnoses Acute medial meniscus tear of left knee, subsequent encounter Procedures MRI Knee Right WO Contrast George Sepulveda MD Phone: tel: fax: [facility] Referral ID Status Reason Start Date Expiration Date Visits Re quested Visits Authorized [id number] Closed 08/22/2018 03/02/2020 1 1 LINE FIELD OPERATOR Encounter Details Date Type Department Care Team (Late st Contact Info) Description 08/22/2018 Orders Only [facility] [address] [address] George Sepulveda MD [address] [place] [address] Acute medial meniscus tear of left knee, subsequent encounter (Primary Dx) Social History Tobacco Use Types Packs/Day Years Used Date Smoking Tobacco: Former Smokeless Tobacco: Never Alcohol Use Standard Drinks/Week Comments Yes 0 (1 standard drink = 0.6 oz pur e alcohol) Sex and Gender Information Value Date Recorded Sex Assigned at Not on file Legal Sex Male 3:25 PM WIRELINE FIELD OPERATOR Gender Identity Not on file Sexual Orientation Not on file documented as of this encounter Plan of Treatment Upcoming Encounters Date Type Department Care Team (Latest Contact Info) Description 10/23/2024 10:00 AM WIRELINE FIELD OPERATOR Hospital Encounter [facility] Operating Room [address] [place] [address] [place] [address] [address] 10/23/2024 10:00 AM WIRELINE FIELD OPERATOR - 10/23/2024 1:00 PM WIRELINE FIELD OPERATOR Surgery [facility] Operating Room [address] [place] [address] [place] [address] [address] ARTHROPLASTY TOTAL KNEE LEFT Scheduled Procedures Name Priority Associated Diagnoses Date/Ti me ARTHROPLASTY TOTAL KNEE left knee osteoarthritis 10/23/2024 10:00 AM WIRELINE FIELD OPERATOR ESOPHAGOGASTRODUODENOSCOPY Dysphagia, unspecified type documented as of this encounter Results * MRI Knee Right WO Contrast (08/24/2018 7:31 PM WIRELINE FIELD OPERATOR) Anatomical Region Laterality Modality Lower Extremities Right Magnetic Reson ance 08/25/2018 4:04 PM WIRELINE FIELD OPERATOR Impressions 08/25/2018 4:11 PM WIRELINE FIELD OPERATOR 1. ??Medial meniscus tear. 2. 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 Electronically signed by: Martir Yang M.D. Narrative 08/25/2018 4:11 PM WIRELINE FIELD OPERATOR RESULT: Examination: MRI right knee without contrast [...] Primary documented in this encounter Care Teams Poultry Tender Relationship Specialty [place] [address] [address] PCP - General 11/12/16 03/11/22 documented as of this encounter
--- OUTSIDE RECORDS SUMMARY | 2024-10-11 03:07 | XMS_ITS | Encounter Summary ---
Author Organization [facility] Healthcare Address [address] [place] [address] Care Team Providers Care Elevator Repair Mechanic Name Role Phone Santino Funk MD Primary Care Provider + Encounter Details Date Type Department Care Team (Late st Contact Info) Description 09/27/2018 2:45 PM PUBLIC HEALTH SANITARIAN TECHNICIAN Lab [facility] [address] [place] [address] [place] [address] [facility] [address] [place] [address] Discharge Disposition: Discharge to home or self care Social History Tobacco Use Types Packs/Day Years Used Date Smoking Tobacco: Former Smokeless Tobacco: Never Alcohol Use Standard Drinks/Week Comments Yes 0 (1 standard drink = 0.6 oz pur e alcohol) Sex and Gender Information Value Date Recorded Sex Assigned at Not on file Legal Sex Male 3:25 PM PUBLIC HEALTH SANITARIAN TECHNICIAN Gender Identity Not on file Sexual Orientation Not on file documented as of this encounter Discharge Disposition Disposition Code Departure Means Destination Discharge to home or self care documented in this encounter Plan of Treatment Upcoming Encounters Date Type Department Care Team (Latest Contact Info) Description 10/23/2024 10:00 AM PUBLIC HEALTH SANITARIAN TECHNICIAN Hospital Encounter [facility] Operating Room [address] [place] [address] [place] [address] [facility] [address] [place] [address] 10/23/2024 10:00 AM PUBLIC HEALTH SANITARIAN TECHNICIAN - 10/23/2024 1:00 PM PUBLIC HEALTH SANITARIAN TECHNICIAN Surgery [facility] Operating Room [address] [place] [address] [place] [address] [facility] [address] [place] [address] ARTHROPLASTY TOTAL KNEE LEFT Scheduled Procedures Name Priority Associated Diagnoses Date/Ti me ARTHROPLASTY TOTAL KNEE left knee osteoarthritis 10/23/2024 10:00 AM PUBLIC HEALTH SANITARIAN TECHNICIAN ESOPHAGOGASTRODUODENOSCOPY Dysphagia, unspecified type documented as of this encounter Procedures Procedure Name Priority Date/Time Associated Diagnosis Comments EGFR Routine 09/27/2018 2:36 PM PUBLIC HEALTH SANITARIAN TECHNICIAN URINALYSIS, MACROSCOPIC Routine 09/27/2018 2:36 PM PUBLIC HEALTH SANITARIAN TECHNICIAN BASIC METABOLIC PANEL Routine 09/27/2018 2:36 PM PUBLIC HEALTH SANITARIAN TECHNICIAN documented in this encounter Results * eGFR (09/27/2018 2:36 PM PUBLIC HEALTH SANITARIAN TECHNICIAN) eGFR 63 mL/min/1.7 3 m2 MARVIN FISHER Comment: Interpretive Data Reference Interval Normal ?>/= 90 mL/min/1.73m2 Mildly decreased* ? 60 - 89 mL/min/1.73m2 Mildly to moderately decreased ?45 - 59 mL/min/1.73m2 Moderately to severely decreased ??30 - 44 mL/min/1.73m2 Severely decreased ?15 - 29 mL/min/1.73m2 Kidney Failure ?< 15 ??mL/min/1.73m2 *Relative to young adult level If -[place] multiply value by 1.16. Estimated glomerular filtration [...] 2016. Blood specimen (specimen) 09/27/2018 2:36 PM PUBLIC HEALTH SANITARIAN TECHNICIAN 09/27/2018 2:47 PM PUBLIC HEALTH SANITARIAN TECHNICIAN Narrative [facility] - 09/27/2018 3:42 PM PUBLIC HEALTH SANITARIAN TECHNICIAN us Santino Funk MD LAB BLOOD ORDERABLES Fin al Result [facility] [address] Department [place] [address] * Basic metabolic panel (09/27/2018 2:36 PM PUBLIC HEALTH SANITARIAN TECHNICIAN) Sodium 141 135 - 145 mmol/L [facility] Potassium, pl 4.8 3.3 - 4.9 mmol/L [facility] Chloride 104 97 - 110 mmol/L [facility] CO2 28 22 - 32 mmol/L [facility] Anion gap 9 2 - 15 mmol/L [facility] BUN 19 8 - 25 mg/dL [facility] Creatinine 1.14 0.80 - 1.30 mg/dL [facility] Glucose 110 70 - 199 mg/dL [facility] Comment: Interpretive Data Fasting glucose [...] [facility] Blood specimen (specimen) 09/27/2018 2:36 PM PUBLIC HEALTH SANITARIAN TECHNICIAN 09/27/2018 2:36 PM PUBLIC HEALTH SANITARIAN TECHNICIAN Narrative [facility] - 09/27/2018 3:42 PM PUBLIC HEALTH SANITARIAN TECHNICIAN Santino Funk MD LAB BLOOD ORDERABLES Fin al Result Performing Organization Address [facility] de Phone Number MARVIN FISHER [phone] [address] [facility] [place] [address] * (ABNORMAL) Urinalysis, macroscopic (09/27/2018 2:36 PM PUBLIC HEALTH SANITARIAN TECHNICIAN) Color, ur Yellow Yellow [facility] [...] Negative [facility] Urine 09/27/2018 2:36 PM PUBLIC HEALTH SANITARIAN TECHNICIAN 09/27/2018 2:37 PM PUBLIC HEALTH SANITARIAN TECHNICIAN Narrative [facility] - 09/27/2018 3:22 PM PUBLIC HEALTH SANITARIAN TECHNICIAN ?? Urine pH is affected by diet, medications, systemic acid-base disturbances, and renal tubular function. ??pH may affect urinary stone formation. ??For example, urine pH below 6.0 may help reduce the tendency for calcium phosphate stones and pH greater than 6.0 may reduce the tendency for uric acid stone formation. Source: [facility] [employer]. Last revised 10-21-2017 us Santino Funk MD LAB MICROBIOLOGY - GENER AL ORDERABLES Final Result Performing Organization Address [facility] Co de Phone Number MARVIN FISHER [address] [facility] [place] [address] documented in this encounter Visit Diagnoses Not on filedocumented in this encounter Care Teams Elevator Repair Mechanic Relationship Specialty [place] [address] [address] [place] [address] PCP - General 11/12/16 03/11/22 documented as of this encounter
--- OUTSIDE RECORDS SUMMARY | 2024-10-11 03:07 | XMS_ITS | Encounter Summary ---
Author Organization [facility] Address [address] [place] [address] Phone Care Team Providers Care Fisher Purse Seine Name Role Phone Santino Funk MD Primary Care Provider + Unknown, Notinfile Primary Care Provider Unavail able No, Physician Primary Care Provider Santino Funk MD Primary Care Provider + Wolfgang Serrano MD Primary Care Provider Wolfgang Serrano MD Primary Care Provider Wolfgang Serrano MD Unavailable [phone] Unknown, Notinfile Unavailable Unavailable Santino Funk MD Unavailable [phone] Chuy Enriquez MD Unavailable [phone] Luis Felipe Cedillo MD Unavailable [phone] Marlene Thornton MD Unavailable [phone] Encounter Details Date Type Department Care Team (Late st Contact Info) Description 02/15/[address] [facility] ProviderGarett MD [address] [place] [address] Social History Tobacco Use Types [...] 10/23/2024 10:00 AM HYPO SPLASHER Hospital Encounter [facility] Operating Room [address] [place] [address] [place] [address] [address] 10/23/2024 10:00 AM HYPO SPLASHER - 10/23/2024 1:00 PM HYPO SPLASHER Surgery [facility] Operating Room [address] [place] [address] [place] [address] [address] ARTHROPLASTY TOTAL KNEE LEFT Scheduled Procedures Name [...] COVID: Suspected 12/17/2021 12/17/2021 12/17/2021 10:19 PM HYPO SPLASHER documented as of this encounter Care Teams Fisher Purse Seine Relationship Specialty [place] [address] [facility] [place] [address] PCP - General 11/12/16 03/11/22 Unknown, Notinfile PCP - General 03/12/22 05/13/22 No, Physician PCP - General 05/14/22 09/29/22 [place] [address] [facility] [place] [address] PCP - General Internal Medicine 09/30/22 05/04/23 Wolfgang Serrano MD PCP - General Family Medicine 05/05/23 08/02/24 [place] [address] [place] [address] PCP - General Family Medicine 08/03/24 Wolfgang Serrano MD Family Medicine 08/03/24 Unknown, Notinfile 03/12/22 [place] [address] [address] [facility] [place] [address] 03/12/22 Chuy Enriquez MD [address] [facility] [address] [place] [address] Consulting Physician Pulmonary Disease 10/13/23 Luis Felipe Cedillo MD [address] [facility] [address] [place] [address] Consulting Physician Gastroenterology 10/13/23 Marlene Thornton MD [address] [place] [address] Surgeon Vascular Surgery 11/10/23 documented as of this encounter
--- OUTSIDE RECORDS SUMMARY | 2024-10-11 03:07 | XMS_ITS | Encounter Summary ---
Author Organization [facility] Healthcare Address [address] [place] [address] Care Team Providers Care Director Of Learning Name Role Phone Santino Funk MD Primary Care Provider + Encounter Details Date Type Department Care Team (Latest Contact Info) Description 09/22/2018 7:31 AM FIELD MACHINIST Hospital Encounter [facility] Diagnostic Imaging [address] [place] [address] Discharge Disposition: Discharge to home or self care Social History Tobacco Use Types Packs/Day Years Used Date Smoking Tobacco: Former Smokeless Tobacco: Never Alcohol Use Standard Drinks/Week Comments Yes 0 (1 standard drink = 0.6 oz pur e alcohol) Sex and Gender Information Value Date Recorded Sex Assigned at Not on file Legal Sex Male 3:25 PM FIELD MACHINIST Gender Identity Not on file Sexual [...] Contact Info) Description 10/23/2024 10:00 AM FIELD MACHINIST Hospital Encounter [facility] Operating Room [address] [place] [address] [place] [id number] [place] [address] 10/23/2024 10:00 AM FIELD MACHINIST - 10/23/2024 1:00 PM FIELD MACHINIST Surgery [facility] Operating Room [address] [place] [address] [place] [address] [address] ARTHROPLASTY TOTAL KNEE LEFT Scheduled Procedures Name Priority Associated Diagnoses Date/Ti me ARTHROPLASTY TOTAL KNEE left knee osteoarthritis 10/23/2024 10:00 AM FIELD MACHINIST ESOPHAGOGASTRODUODENOSCOPY Dysphagia, unspecified type documented as of this encounter Procedures Procedure Name Priority Date/Time Associated Diagnosis Comments FL FLUOROSCOPY < 1 HOUR IP Routine 09/22/2018 10:11 AM FIELD MACHINIST documented in this encounter Results * FL Fluoroscopy < 1 Hour (09/22/2018 10:11 AM FIELD MACHINIST) Narrative [facility] - 09/22/2018 10:11 AM FIELD MACHINIST The images from this study are not interpreted by Radiology. ??Please refer to the physician's procedure / OR operative note. us George Sepulveda MD IMG FLUOROSCOPY PROCEDURE S Final Result [facility] documented in this encounter Visit Diagnoses Not on filedocumented in this encounter Care Teams Director Of Learning Relationship Specialty [place] [address] [address] [place] [address] PCP - General 11/12/16 03/11/22 documented as of this encounter
--- OUTSIDE RECORDS SUMMARY | 2024-10-11 03:07 | XMS_ITS | Encounter Summary ---
Author Organization [facility] Healthcare Address [address] [place] [address] Care Team Providers Care Graduate Civil Engineer Name Role Phone Santino Funk MD Primary Care Provider + Reason for Referral * Diagnostic Imaging (Routine) - Closed Specialty Diagnoses / Procedures [facility]erred To Contact Radiology Diagnoses Acute medial meniscus tear of left knee, subsequent encounter Procedures MRI Knee Right WO Contrast George Sepulveda MD Phone: tel: fax: [facility] Referral ID Status Reason Start Date Expiration Date Visits Re quested Visits Authorized [id number] Closed 08/22/2018 03/02/2020 1 1 M TECHNICIAN * Diagnostic Imaging (Routine) - Closed Specialty Diagnoses / Procedures Referred By [facility] Referred To Contact Radiology Diagnoses Primary osteoarthritis of left knee Procedures MRI Knee Left WO Contrast George Sepulveda MD Phone: tel: fax: [facility] Referral ID Status Reason Start Date Expiration Date Visits Re quested Visits Authorized [id number] Closed 08/16/2018 02/25/2020 1 1 M TECHNICIAN Reason for Visit * Diagnostic Imaging (Routine) - Closed Specialty Diagnoses / Procedures Referred By [facility] Referred To Contact Radiology Diagnoses Primary osteoarthritis of left knee Procedures MRI Knee Left WO Contrast George Sepulveda MD Phone: tel: fax: [facility] Referral ID Status Reason Start Date Expiration Date Visits Re quested Visits Authorized [id number] Closed 08/16/2018 02/25/2020 1 1 Encounter Details Date Type Department Care Team (Latest Contact Info) Description 08/24/2018 4:15 PM CLAIM TECHNICIAN - 08/24/2018 11:59 PM CLAIM TECHNICIAN Hospital Encounter [facility] Imaging and Radiology [address] [place] [phone] [place] [address] [address] Primary osteoarthritis of left knee; Acute medial [...] on file Legal Sex Male 3:25 PM [facility] Gender Identity Not on file Sexual Orientation [...] (Latest Contact Info) Description 10/23/2024 10:00 AM CLAIM TECHNICIAN Hospital Encounter [facility] Operating Room [address] [place] [address] [place] [address] [address] 10/23/2024 10:00 AM CLAIM TECHNICIAN - 10/23/2024 1:00 PM CLAIM TECHNICIAN Surgery [facility] Operating Room [address] [place] [address] [place] [address] [address] ARTHROPLASTY TOTAL KNEE LEFT Scheduled Procedures Name Priority Associated Diagnoses Date/Ti me ARTHROPLASTY TOTAL KNEE left knee osteoarthritis 10/23/2024 10:00 AM CLAIM TECHNICIAN ESOPHAGOGASTRODUODENOSCOPY Dysphagia, unspecified type documented as of this encounter Procedures Procedure Name Priority Date/Time Associated Diagnosis Comments MRI KNEE RIGHT WO CONTRAST Schedule Routine, Read Routine (OP Routine) 08/24/2018 7:31 PM CLAIM TECHNICIAN Acute medial meniscus tear of left knee, subsequent encounter MRI KNEE LEFT WO CONTRAST Schedule Routine, Read Routine (OP Routine) 08/24/2018 6:09 PM CLAIM TECHNICIAN Primary osteoarthritis of left knee documented in this encounter Results * MRI Knee Right WO Contrast (08/24/2018 7:31 PM CLAIM TECHNICIAN) Anatomical Region Laterality Modality Lower Extremities Right Magnetic Reson ance 08/25/2018 4:04 PM CLAIM TECHNICIAN Impressions 08/25/2018 4:11 PM CLAIM TECHNICIAN 1. ??Medial meniscus tear. 2. 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 Electronically signed by: Martir Yang M.D. Narrative 08/25/2018 4:11 PM CLAIM TECHNICIAN RESULT: Examination: MRI right knee without contrast [...] Knee Left WO Contrast (08/24/2018 6:09 PM CLAIM TECHNICIAN) Anatomical Region Laterality Modality Lower Extremities Left Magnetic Reson ance 08/25/2018 2:54 PM CLAIM TECHNICIAN Impressions 08/26/2018 9:47 AM CLAIM TECHNICIAN 1. ??Degenerative tear involving the body and posterior horn of the medial meniscus. 2. 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 3. ??5 mm osteochondral lesion of the medial femoral condyle, associated with an intra-articular fluid collection, which could represent a ganglion cyst. Electronically signed by: Martir Yang M.D. Narrative 08/26/2018 9:47 AM CLAIM TECHNICIAN RESULT: Examination: MRI left knee without contrast [...] encounter documented in this encounter Care Teams Graduate Civil Engineer Relationship Specialty [place] [address] [address] PCP - General 11/12/16 03/11/22 documented as of this encounter
--- OUTSIDE RECORDS SUMMARY | 2024-10-11 03:07 | XMS_ITS | Encounter Summary ---
Author Organization [facility] Address [address] [facility] [address] [place] [address] Care Team Providers Care Blow Mold Technician Name Role Phone Santino Funk MD Primary Care Provider + Encounter Details Date Type Department Care Team (Late st Contact Info) Description 10/12/2018 Orders Only [facility] [address] [phone] [place] [address] [address] Social History Tobacco Use Types Packs/Day Years Used Date Smoking Tobacco: Former Smokeless Tobacco: Never Alcohol Use Standard Drinks/Week Comments Yes 0 (1 standard drink = 0.6 oz pur e alcohol) Sex and Gender Information Value Date Recorded Sex Assigned at Not on file Legal Sex Male 3:25 PM COMPOSITION FLOOR LAYER Gender Identity Not on file [...] (Latest Contact Info) Description 10/23/2024 10:00 AM COMPOSITION FLOOR LAYER Hospital Encounter [facility] Operating Room [address] [place] [address] [place] [address] [address] 10/23/2024 10:00 AM COMPOSITION FLOOR LAYER - 10/23/2024 1:00 PM [facility] Surgery [facility] Operating Room [address] [place] [address] [place] [address] [address] ARTHROPLASTY TOTAL KNEE LEFT Scheduled Procedures Name Priority Associated Diagnoses Date/Ti me ARTHROPLASTY TOTAL KNEE left knee osteoarthritis 10/23/2024 10:00 AM COMPOSITION FLOOR LAYER ESOPHAGOGASTRODUODENOSCOPY Dysphagia, unspecified type documented as of this encounter Visit Diagnoses Not on filedocumented in this encounter Discontinued Medications Medication Sig Discontinue Reason Start Date End Da te oxyCODONE-acetaminophen (PERCOCET) 7.5-325 mg per tabletIndications:Pain Take 1-2 tablets every 4 hours as needed for pain Reorder 09/22/2018 10/12/2018 documented as of this encounter Care Teams Blow Mold Technician Relationship Specialty [place] [address] [facility] [place] [address] PCP - General 11/12/16 03/11/22 documented as of this encounter
--- OUTSIDE RECORDS SUMMARY | 2024-10-11 03:07 | XMS_ITS | Encounter Summary ---
Author Organization [facility] Healthcare Address [address] [place] [address] Care Team Providers Care Film Processing Supervisor Name Role Phone Santino Funk MD Primary Care Provider + Encounter Details Date Type Department Care Team (Late st Contact Info) Description 09/22/2018 9:00 AM GENERAL OFFICE WORKER - 09/22/2018 10:30 AM [facility] [[email or web address] Surgery [facility] Operating Room [address] [place] [address] George Sepulveda MD [address] [place], [place] [id number] Bilateral knees arthroscopy partial medial menisectomy, left [...] file Legal Sex Male 3:25 PM GENERAL OFFICE WORKER Gender Identity Not on file Sexual Orientation Not on file documented as of this encounter Last Filed Vital Signs Vital Sign Reading Time Taken Comments Blood Pressure 158/96 09/22/2018 7:29 AM GENERAL OFFICE WORKER Pulse 57 09/22/2018 7:29 AM GENERAL OFFICE WORKER Temperature 36.7 ??C (98 ??F) 09/22/2018 7:29 AM GENERAL OFFICE WORKER Respiratory Rate 16 09/22/2018 7:29 AM GENERAL OFFICE WORKER Oxygen Saturation 97% 09/22/2018 7:29 AM GENERAL OFFICE WORKER Inhaled Oxygen Concentration - - Weight 99.8 kg (220 lb) 09/22/2018 7:29 AM GENERAL OFFICE WORKER Height 182.9 cm (6') 09/22/2018 7:29 AM GENERAL OFFICE WORKER Body Mass Index 29.84 09/22/2018 7:29 AM GENERAL OFFICE WORKER documented in this encounter Discharge Instructions * Discharge Instructions* Carolyne Ruiz RN - 09/22/2018 12:04 PM GENERAL OFFICE WORKER [facility] [address], [address] [place] [address] Post-Operative Instructions Knee Arthroscopy Dr. George Sepulveda Medication ?? One of two pain medications, Cataldo (hydrocodone), or Percocet (oxycodone) will be prescribed [...] an emergency contact Dr. Sepulveda's office at [phone]. ?? Contact the office if you notice [...] any questions. Please call Maura Serrano at [phone]. FOLLOW UP CALLS You may get a [...] if you have any questions or concerns. RAL OFFICE WORKER * Attachments The following attachments cannot be sent through Care Everywhere. * Knee Arthroscopy (Discharge Care) (Wallisian) * Meniscectomy (Discharge Care) (Wallisian) * Oxycodone/Acetaminophen (By mouth) (Wallisian) documented in this encounter Medications at Time [...] in wheeled walker that was purchased at [facility] but it was broken, will issue wheeled walker RAL OFFICE WORKER documented in this encounter H&P Notes [...] fixation medial tibial plateau internal fixaton patella RAL OFFICE WORKER Source Note - George Sepulveda MD - 09/06/2018 8:15 AM GENERAL OFFICE WORKER Images from the original note were not [...] will followup for surgery. George Sepulveda MD RAL OFFICE WORKER documented in this encounter Miscellaneous Notes * Perioperative Nursing Note - Carolyne Ruiz RN - 09/22/2018 12:40 PM CST Discharge instructions complete. Report given to Romelia RN and MARAH Marshall. Patient just needs IV removed and then able to go home when dressed and ready. at bedside. RAL OFFICE WORKER * Op Note - George Sepulveda MD - 09/22/2018 9:00 AM CST Operative Note Name: Abrahan Gtz Jr. : 1944 AGE: 74 y.o. DATE: 09/22/2018 SURGEON: George Sepulveda MD SECOND FACING BASTER: CHECO Grissom PREOPERATIVE DIAGNOSIS: 1. Subchondral insufficiency [...] flowable implant, and the medial tibial plateau [id number] biomaterial flowable implant. I then moved to [...] correct. George Sepulveda MD 09/22/2018 10:32 AM RAL OFFICE WORKER * Pre-Procedure Instructions - Nidia Whitfield RN - 09/19/2018 5:12 PM GENERAL OFFICE WORKER We are pleased that you and your [...] omeprazole (PriLOSEC) ?? Use no make-up, nail pashto, lotions, oils or powders on your skin. [...] posted at the top of the page. RAL OFFICE WORKER documented in this encounter Plan of Treatment Upcoming Encounters Date Type Department Care Team (Latest Contact Info) Description 10/23/2024 10:00 AM GENERAL OFFICE WORKER Hospital Encounter [facility] Operating Room [address] [place] [address] [place] [address] [address] 10/23/2024 10:00 AM GENERAL OFFICE WORKER - 10/23/2024 1:00 PM GENERAL OFFICE WORKER Surgery [facility] Operating Room [address] [place] [address] [place] [id number] [id number] ARTHROPLASTY TOTAL KNEE LEFT Scheduled Procedures Name Priority Associated Diagnoses Date/Ti me ARTHROPLASTY TOTAL KNEE left knee osteoarthritis 10/23/2024 10:00 AM GENERAL OFFICE WORKER ESOPHAGOGASTRODUODENOSCOPY Dysphagia, unspecified type documented as of this encounter Procedures Procedure Name Priority Date/Time Associated Diagnosis Comments FL FLUOROSCOPY < 1 HOUR IP Routine 09/22/20 18 10:11 AM GENERAL OFFICE WORKER XR KNEE RIGHT 1 OR 2 VIEWS IP Routine 09/22/2018 10:09 AM GENERAL OFFICE WORKER XR KNEE LEFT 1 OR 2 VIEWS IP Routine 09/22/2018 10:07 AM GENERAL OFFICE WORKER ARTHROSCOPY KNEE SUBCHONDROPLASTY FEMORAL CONDYLE 09/22/2018 9:01 AM GENERAL OFFICE WORKER bilat medial menisus tear ARTHROSCOPY KNEE PARTIAL MEDIAL MENISECTOMY 09/22/2018 9:01 AM GENERAL OFFICE WORKER bilat medial menisus tear documented in this encounter Results * FL Fluoroscopy < 1 Hour (09/22/2018 10:11 AM GENERAL OFFICE WORKER) Narrative [facility] - 09/22/2018 10:11 AM GENERAL OFFICE WORKER The images from this study are not interpreted by Radiology. ??Please refer to the physician's procedure / OR operative note. George Sepulveda MD IMG FLUOROSCOPY PROCEDURE S Final Result [facility] * XR Knee Right 1 or 2 Views (09/22/2018 10:09 AM GENERAL OFFICE WORKER) Anatomical Region Laterality Modality Lower Extremities, Knee Right Computed Radiography 09/22/2018 10:1 6 AM GENERAL OFFICE WORKER Impressions 09/22/2018 10:17 AM GENERAL OFFICE WORKER Surgical localization. Electronically signed by: Beka Draper M.D. Narrative 09/22/2018 10:17 AM GENERAL OFFICE WORKER RESULT: EXAMINATION: XR KNEE RIGHT 1 [...] 1 or 2 Views (09/22/2018 10:07 AM GENERAL OFFICE WORKER) Anatomical Region Laterality Modality Lower Extremities, Knee Left Computed Radiography 09/22/2018 10:1 7 AM GENERAL OFFICE WORKER Impressions 09/22/2018 10:18 AM GENERAL OFFICE WORKER Radiographic localization Electronically signed by: Beka Draper M.D. Narrative 09/22/2018 10:18 AM GENERAL OFFICE WORKER RESULT: EXAMINATION: XR KNEE LEFT 1 OR [...] AnalgesiaIndications:Pre-Emp tive Analgesia Given 09/22/2018 8:21 AM GENERAL OFFICE WORKER 1,000 mg bupivacaine (MARCAINE) 0.25 % (2.5 mg/mL) preservative free injection As needed, Starting on Jo 09/22/18 at 0946, Intra-Op Given 09/22/2018 9:46 AM GENERAL OFFICE WORKER 40 mL Surgical Site EPINEPHrine injection As needed, Starting on Jo 09/22/18 at 0947, Intra-Op Given 09/22/2018 9:47 AM GENERAL OFFICE WORKER 2 mg Surgical Site fentaNYL (SUBLIMAZE) 50 [...] analgesic., Indications: PainIndications:Pain Given 09/22/2018 10:54 AM GENERAL OFFICE WORKER 50 mcg fentaNYL (SUBLIMAZE) preservative free injection 50 mcg 50 mcg, intravenous, Every 10 min PRN, 1st line for pain, Starting on Jo 09/22/18 at 1039, Phase I, Notify Anesthesiologist if total PACU dose reaches 100 mcg and pain score 5/10 or more., Indications: PainIndications:Pain Given 09/22/2018 11:30 AM GENERAL OFFICE WORKER 50 mcg Given 09/22/2018 11:19 AM GENERAL OFFICE WORKER 50 mcg Given 09/22/2018 11:04 AM GENERAL OFFICE WORKER 50 mcg ketorolac (TORADOL) 30 mg/mL (1 mL) injection - ADS Override Pull Starting on Jo 09/22/18 at 1045, For 1 dose, AMBREEN SMITH: cabinet override ketorolac (TORADOL) injection 15 mg 15 mg, intravenous, Once, On Jo 09/22/18 at 1130, For 1 dose, Phase I, For Adult IV push, administer over 15 seconds Given 09/22/2018 10:48 AM GENERAL OFFICE WORKER 15 mg Lactated Ringer's (LR) infusion 30 mL/hr, intravenous, Continuous, Starting on Jo 09/22/18 at 0830 New Bag 09/22/2018 8:55 AM GENERAL OFFICE WORKER oxyCODONE-acetaminophen (PERCOCET) 7.5-325 mg per tablet - ADS Override Pull Starting on Jo 09/22/18 at 1154, For 1 dose, AMBREEN SMITH: cabinet override oxyCODONE-acetaminophen (PERCOCET) 7.5-325 mg per tablet 2 tablet 2 tablet, oral, Once, On Jo 09/22/18 at 1300, For 1 dose, Phase I, Indications: PainIndications:Pain Given 09/22/2018 12:17 PM GENERAL OFFICE WORKER 2 tablets sodium chloride 0.9 % irrigation As needed, Starting on Jo 09/22/18 at 0947, Intra-Op Given 09/22/2018 9:48 AM GENERAL OFFICE WORKER 6,000 mL Surgical Site Given 09/22/2018 9:47 AM GENERAL OFFICE WORKER 1,000 mL Blue rgical Site documented in [...] Recently Administered Medications Times are shown in GENERAL OFFICE WORKER. Scheduled Medication Order 09/20/2018 09/21/2018 09/22/2018 acetaminophen [...] 09/22/2018 documented in this encounter Care Teams Film Processing Supervisor Relationship Specialty [place] [id number] [address] PCP - General 11/12/16 03/11/22 documented as of this encounter
--- OUTSIDE RECORDS SUMMARY | 2024-10-11 03:07 | XMS_ITS | Encounter Summary ---
Author Organization [facility] Healthcare Address [address] [place] [address] Care Team Providers Care Oyster Floater Name Role Phone Santino Funk MD Primary Care Provider + Encounter Details Date Type Department Care Team (Latest Contact Info) Description 09/22/2018 6:42 AM PLASTIC CNC MACHINE OPERATOR - 09/22/2018 1:40 PM PLASTIC CNC MACHINE OPERATOR Hospital Encounter [facility] Operating Room [address] [place] [address] [place] [id number] [address] Subchondral insufficiency fracture of condyle of left [...] on file Legal Sex Male 3:25 PM PLASTIC CNC MACHINE OPERATOR Gender Identity Not on file Sexual Orientation Not on file documented as of this encounter Last Filed Vital Signs Vital Sign Reading Time Taken Comments Blood Pressure 173/91 09/22/2018 11:30 AM PLASTIC CNC MACHINE OPERATOR Pulse 80 09/22/2018 11:45 AM PLASTIC CNC MACHINE OPERATOR Temperature 36.7 ??C (98 ??F) 09/22/2018 10:40 AM PLASTIC CNC MACHINE OPERATOR Respiratory Rate 17 09/22/2018 11:45 AM PLASTIC CNC MACHINE OPERATOR Oxygen Saturation 97% 09/22/2018 11:45 AM PLASTIC CNC MACHINE OPERATOR Inhaled Oxygen Concentration - - Weight 99.8 kg (220 lb) 09/22/2018 7:29 AM PLASTIC CNC MACHINE OPERATOR Height 182.9 cm (6') 09/22/2018 7:29 AM PLASTIC CNC MACHINE OPERATOR Body Mass Index 29.84 09/22/2018 7:29 AM PLASTIC CNC MACHINE OPERATOR documented in this encounter Discharge Instructions * Discharge Instructions* Carolyne Ruiz RN - 09/22/2018 12:04 PM PLASTIC CNC MACHINE OPERATOR [facility] [address], [place] [address] Post-Operative Instructions Knee Arthroscopy Dr. George Sepulveda Medication ?? One of two pain medications, Howell (hydrocodone), or Percocet (oxycodone) will be prescribed [...] an emergency contact Dr. Sepulveda's office at [phone]. ?? Contact the office if you notice [...] any questions. Please call Maura Serrano at [phone]. FOLLOW UP CALLS You may get a [...] if you have any questions or concerns. TIC CNC MACHINE OPERATOR * Attachments The following attachments cannot be sent through Care Everywhere. * Knee Arthroscopy (Discharge Care) (Burmese) * Meniscectomy (Discharge Care) (Burmese) * Oxycodone/Acetaminophen (By mouth) (Burmese) documented in this encounter Medications at Time [...] HERNIA REPAIR 1980 Hiatal Hernia repair ??? CO ABDOMEN SURGERY PROC UNLISTED Hernia Repair - [...] in wheeled walker that was purchased at [facility] but it was broken, will issue wheeled walker TIC CNC MACHINE OPERATOR documented in this encounter H&P [...] fixation medial tibial plateau internal fixaton patella TIC CNC MACHINE OPERATOR Source Note - George Sepulveda MD - 09/06/2018 8:15 AM PLASTIC CNC MACHINE OPERATOR Images from the original note [...] will followup for surgery. George Sepulveda MD TIC CNC MACHINE OPERATOR documented in this encounter Miscellaneous Notes * Perioperative Nursing Note - Carolyne Ruiz RN - 09/22/2018 12:40 PM CST Discharge instructions complete. Report given to Romelia RN and Joanna RN. Patient just needs IV removed and then able to go home when dressed and ready. at bedside. TIC CNC MACHINE OPERATOR * Op Note - George Sepulveda MD - 09/22/2018 9:00 AM CST Operative Note Name: Abrahan Gtz Jr. : 1944 AGE: 74 y.o. DATE: 09/22/2018 SURGEON: George Sepulveda MD EQUAL OPPORTUNITY COUNSELOR: CHECO Grissom PREOPERATIVE DIAGNOSIS: 1. Subchondral insufficiency [...] flowable implant, and the medial tibial plateau [id number] biomaterial flowable implant. I then moved to [...] correct. George Sepulveda MD 09/22/2018 10:32 AM TIC CNC MACHINE OPERATOR * Pre-Procedure Instructions - Nidia Whitfield RN - 09/19/2018 5:12 PM PLASTIC CNC MACHINE OPERATOR We are pleased that you and your doctor have chosen [facility] for your surgery. We hope that the [...] omeprazole (PriLOSEC) ?? Use no make-up, nail romansh, lotions, oils or powders on your skin. [...] posted at the top of the page. TIC CNC MACHINE OPERATOR documented in this encounter Plan of Treatment Upcoming Encounters Date Type Department Care Team (Latest Contact Info) Description 10/23/2024 10:00 AM PLASTIC CNC MACHINE OPERATOR Hospital Encounter [facility] Operating Room [address] [place] [address] [place] [address] [id number] 10/23/2024 10:00 AM PLASTIC CNC MACHINE OPERATOR - 10/23/2024 1:00 PM PLASTIC CNC MACHINE OPERATOR Surgery [facility] Operating Room [address] [place] [address] [place] [address] [id number] ARTHROPLASTY TOTAL KNEE LEFT Scheduled Procedures Name Priority Associated Diagnoses Date/Ti me ARTHROPLASTY TOTAL KNEE left knee osteoarthritis 10/23/2024 10:00 AM PLASTIC CNC MACHINE OPERATOR ESOPHAGOGASTRODUODENOSCOPY Dysphagia, unspecified type documented as of this encounter Procedures Procedure Name Priority Date/Time Associated Diagnosis Comments FL FLUOROSCOPY < 1 HOUR IP Routine 09/22/20 18 10:11 AM PLASTIC CNC MACHINE OPERATOR XR KNEE RIGHT 1 OR 2 VIEWS IP Routine 09/22/2018 10:09 AM PLASTIC CNC MACHINE OPERATOR XR KNEE LEFT 1 OR 2 VIEWS IP Routine 09/22/2018 10:07 AM PLASTIC CNC MACHINE OPERATOR ARTHROSCOPY KNEE SUBCHONDROPLASTY FEMORAL CONDYLE 09/22/2018 9:01 AM PLASTIC CNC MACHINE OPERATOR bilat medial menisus tear ARTHROSCOPY KNEE PARTIAL MEDIAL MENISECTOMY 09/22/2018 9:01 AM PLASTIC CNC MACHINE OPERATOR bilat medial menisus tear documented in this encounter Results * FL Fluoroscopy < 1 Hour (09/22/2018 10:11 AM PLASTIC CNC MACHINE OPERATOR) Narrative RAD[facility] - 09/22/2018 10:11 AM PLASTIC CNC MACHINE OPERATOR The images from this study are not interpreted by Radiology. ??Please refer to the physician's procedure / OR operative note. us George Sepulveda MD IMG FLUOROSCOPY PROCEDURE S Final Result [facility] * XR Knee Right 1 or 2 Views (09/22/2018 10:09 AM PLASTIC CNC MACHINE OPERATOR) Anatomical Region Laterality Modality Lower Extremities, Knee Right Computed Radiography 09/22/2018 10:1 6 AM PLASTIC CNC MACHINE OPERATOR Impressions 09/22/2018 10:17 AM PLASTIC CNC MACHINE OPERATOR Surgical localization. Electronically signed by: Beka Draper M.D. Narrative 09/22/2018 10:17 AM PLASTIC CNC MACHINE OPERATOR RESULT: EXAMINATION: XR KNEE RIGHT [...] 1 or 2 Views (09/22/2018 10:07 AM PLASTIC CNC MACHINE OPERATOR) Anatomical Region Laterality Modality Lower Extremities, Knee Left Computed Radiography 09/22/2018 10:1 7 AM PLASTIC CNC MACHINE OPERATOR Impressions 09/22/2018 10:18 AM PLASTIC CNC MACHINE OPERATOR Radiographic localization Electronically signed by: Beka Draper M.D. Narrative 09/22/2018 10:18 AM PLASTIC CNC MACHINE OPERATOR RESULT: EXAMINATION: XR KNEE LEFT [...] Pre-Emptive AnalgesiaIndications:Pre-Emptive Analgesia Given 09/22/2018 8:21 AM PLASTIC CNC MACHINE OPERATOR 1,000 mg fentaNYL (SUBLIMAZE) 50 [...] analgesic., Indications: PainIndications:Pain Given 09/22/2018 10:54 AM PLASTIC CNC MACHINE OPERATOR 50 mcg fentaNYL (SUBLIMAZE) preservative free injection 50 mcg 50 mcg, intravenous, Every 10 min PRN, 1st line for pain, Starting on Jo 09/22/18 at 1039, Phase I, Notify Anesthesiologist if total PACU dose reaches 100 mcg and pain score 5/10 or more., Indications: PainIndications:Pain Given 09/22/2018 11:30 AM PLASTIC CNC MACHINE OPERATOR 50 mcg Given 09/22/2018 11:19 AM PLASTIC CNC MACHINE OPERATOR 50 mcg Given 09/22/2018 11:04 AM PLASTIC CNC MACHINE OPERATOR 50 mcg ketorolac (TORADOL) 30 mg/mL (1 mL) injection - ADS Override Pull Starting on Jo 09/22/18 at 1045, For 1 dose, AMBREEN SMITH: cabinet override ketorolac (TORADOL) injection 15 mg 15 mg, intravenous, Once, On Jo 09/22/18 at 1130, For 1 dose, Phase I, For Adult IV push, administer over 15 seconds Given 09/22/2018 10:48 AM PLASTIC CNC MACHINE OPERATOR 15 mg Lactated Ringer's (LR) infusion 30 mL/hr, intravenous, Continuous, Starting on Jo 09/22/18 at 0830 New Bag 09/22/2018 8:55 AM PLASTIC CNC MACHINE OPERATOR oxyCODONE-acetaminophen (PERCOCET) 7.5-325 mg per tablet - ADS Override Pull Starting on Jo 09/22/18 at 1154, For 1 dose, AMBREEN SMITH: cabinet override oxyCODONE-acetaminophen (PERCOCET) 7.5-325 mg per tablet 2 tablet 2 tablet, oral, Once, On Jo 09/22/18 at 1300, For 1 dose, Phase I, Indications: PainIndications:Pain Given 09/22/2018 12:17 PM PLASTIC CNC MACHINE OPERATOR 2 tablets documented in this [...] Recently Administered Medications Times are shown in PLASTIC CNC MACHINE OPERATOR. Scheduled Medication Order 09/20/2018 09/21/2018 [...] 09/22/2018 documented in this encounter Care Teams Oyster Floater Relationship Specialty [place] [address] [facility] [address] [place] [address] PCP - General 11/12/16 03/11/22 documented as of this encounter
--- OUTSIDE RECORDS SUMMARY | 2024-10-11 03:07 | XMS_ITS | Encounter Summary ---
Author Organization [facility] Healthcare Address [address] [place] [address] Care Team Providers Care Ship Scraper Name Role Phone Santino Funk MD Primary Care Provider + Encounter Details Date Type Department Care Team (Late st Contact Info) Description 02/15/2018 3:50 PM CDT Lab [address] [address] Social History Tobacco Use Types Packs/Day Years Used Date Smoking Tobacco: Former Alcohol Use Standard Drinks/Week Comments Yes 0 (1 standard drink = 0.6 oz pur e alcohol) Sex and Gender Information Value Date Recorded Sex Assigned at Not on file Legal Sex Male 3:25 PM RISK COMPLIANCE ANALYST Gender Identity Not on file Sexual Orientation Not on file documented as of this encounter Plan of Treatment Upcoming Encounters Date Type Department Care Team (Latest Contact Info) Description 10/23/2024 10:00 AM RISK COMPLIANCE ANALYST Hospital Encounter [facility] Operating Room [address] [place] [address] [place] [address] [id number] 10/23/2024 10:00 AM RISK COMPLIANCE ANALYST - 10/23/2024 1:00 PM RISK COMPLIANCE ANALYST Surgery [facility] Operating Room [address] [place] [address] [place] [address] [address] ARTHROPLASTY TOTAL KNEE LEFT Scheduled Procedures Name Priority Associated Diagnoses Date/Ti me ARTHROPLASTY TOTAL KNEE left knee osteoarthritis 10/23/2024 10:00 AM RISK COMPLIANCE ANALYST ESOPHAGOGASTRODUODENOSCOPY Dysphagia, unspecified type documented as of this encounter Procedures Procedure Name Priority Date/Time Associated Diagnosis Comments SURGICAL PATHOLOGY Routine 02/15/2018 3: 52 PM CDT documented in this encounter Results * Surgical pathology (02/15/2018 3:52 PM CDT) 02/15/2018 3:52 PM CDT 02/15/2018 3:52 PM CDT Narrative 02/16/2018 1:38 PM CDT [facility] Department of Pathology [address] [place], [place] [phone] Final Report * Amended * ?Patient Name: ABRAHAN GTZ JR Address: [address] [place] [address] Service: Laboratory ??[place], [place] ??[address] Location: Lab Taken: 02/15/2018 Gender: M Received 02/15/2018 : 1944 (Age: 73) [facility] #: [id number] Accessioned: 02/15/2018 ?? Patient Type: CH Ref [...] determined by the Surgical Pathology Department at [facility] as part of an ongoing quality compliance manager program and in compliance with federally mandated [...] characteristics determined by the Surgical Pathology Department [facility]. ??It has not been cleared or approved by the U. S. Food and Drug Administration. Gianna Kelly MD PhD LAB PATHO LOGY ORDERABLES Edited Result - Final documented in this encounter Visit Diagnoses Not on filedocumented in this encounter Care Teams Ship Scraper Relationship Specialty [place] [address] [address] [facility] [address] [place] [address] PCP - General 11/12/16 03/11/22 documented as of this encounter
--- OUTSIDE RECORDS SUMMARY | 2024-10-11 03:07 | XMS_ITS | Encounter Summary ---
Author Organization [facility] Address [address] [place] [address] Care Team Providers Care Corporate Vp Advertising & Online Name Role Phone Santino Funk MD Primary Care Provider + Encounter Details Date Type Department Care Team (Late st Contact Info) Description 09/22/2018 9:01 AM FIRE MARSHAL Anesthesia Event [facility] Operating Room [address] [place] [address] [place] [address] [facility] [place] [address] Isaac Jara MD [address] [place] [address] Anesthesia Record Procedure Summary Procedure Name Responsible [...] on file Legal Sex Male 3:25 PM FIRE MARSHAL Gender Identity Not on file Sexual Orientation [...] - patient participated Level of consciousness: arouses administrative receptionist Pain score: 0 Pain management: adequate Airway patency: adequate Evidence of recall: no Anesthetic complications: no Cardiovascular status: acceptable Respiratory status: acceptable Hydration status: acceptable Pt is: normothermic Nausea/Vomiting status: none MARSHAL * Anesthesia Preprocedure Evaluation - Isaac Jara [...] HERNIA REPAIR 1980 Hiatal Hernia repair ??? SC ABDOMEN SURGERY PROC UNLISTED Hernia Repair - [...] and agree to proceed. All questions answered. MARSHAL MARSHAL documented in this encounter Plan of Treatment Upcoming Encounters Date Type Department Care Team (Latest Contact Info) Description 10/23/2024 10:00 AM FIRE MARSHAL Hospital Encounter [facility] Operating Room [address] [place] [address] [place] [address] [address] 10/23/2024 10:00 AM FIRE MARSHAL - 10/23/2024 1:00 PM FIRE MARSHAL Surgery [facility] Operating Room [address] [place] [address] [place] [address] [address] ARTHROPLASTY TOTAL KNEE LEFT Scheduled Procedures Name Priority Associated Diagnoses Date/Ti me ARTHROPLASTY TOTAL KNEE left knee osteoarthritis 10/23/2024 10:00 AM FIRE MARSHAL ESOPHAGOGASTRODUODENOSCOPY Dysphagia, unspecified type documented as of [...] SurgicalIndications:Prophylaxis , Surgical Given 09/22/2018 9:12 AM FIRE MARSHAL 2,000 mg dexamethasone (DECADRON) injection intravenous, Administer over 2 Minutes, As needed, Starting on Jo 09/22/18 at 0913, Anesthesia Intra-op Given 09/22/2018 9:13 AM FIRE MARSHAL 8 mg fentaNYL (SUBLIMAZE) preservative free injection intravenous, As needed, Starting on Jo 09/22/18 at 0912, Anesthesia Intra-op Given 09/22/2018 10:14 AM FIRE MARSHAL 50 mcg Given 09/22/2018 9:48 AM FIRE MARSHAL 50 mcg Given 09/22/2018 9:39 AM FIRE MARSHAL 25 mcg hydrALAZINE (APRESOLINE) injection intravenous, Administer over 1 Minutes, As needed, high blood pressure, Starting on Jo 09/22/18 at 1007, Anesthesia Intra-op, Indications: hypertensionIndications:hypertension Given 09/22/2018 10:07 AM FIRE MARSHAL 10 mg Lactated Ringer's (LR) infusion 30 mL/hr, intravenous, Continuous, Starting on Jo 09/22/18 at 0830 New Bag 09/22/2018 8:55 AM FIRE MARSHAL lidocaine (XYLOCAINE) 20 mg/mL (2 %) preservative free injection intravenous, As needed, Starting on Jo 09/22/18 at 0906, Anesthesia Intra-op Given 09/22/2018 9:07 AM FIRE MARSHAL 20 mg Given 09/22/2018 9:06 AM FIRE MARSHAL 80 mg midazolam (VERSED) preservative free injection intravenous, Administer over 2 Minutes, As needed, Starting on Jo 09/22/18 at 0859, Anesthesia Intra-op Given 09/22/2018 8:59 AM FIRE MARSHAL 2 mg ondansetron (ZOFRAN) injection intravenous, Administer over 2 Minutes, As needed, nausea, vomiting, Starting on Jo 09/22/18 at 1019, Anesthesia Intra-op Given 09/22/2018 10:19 AM FIRE MARSHAL 4 mg propofol (DIPRIVAN) IV intravenous, As needed, Starting on Jo 09/22/18 at 0906, Anesthesia Intra-op Given 09/22/2018 10:02 AM FIRE MARSHAL 30 mg Given 09/22/2018 9:07 AM FIRE MARSHAL 40 mg Given 09/22/2018 9:06 AM FIRE MARSHAL 160 mg documented in this encounter Care Teams Corporate Vp Advertising & Online Relationship Specialty [place] [address] [address] PCP - General 11/12/16 03/11/22 documented as of this encounter
--- OUTSIDE RECORDS SUMMARY | 2024-10-11 03:07 | XMS_ITS | Encounter Summary ---
Author Organization [facility] Healthcare Address [address] [place] [address] Care Team Providers Care Speech Therapy Teacher Name Role Phone Santino Funk MD Primary Care Provider + Encounter Details Date Type Department Care Team (Latest Contact Info) Description 09/22/2018 7:32 AM PLUG ASSEMBLER - 09/22/2018 11:59 PM PLUG ASSEMBLER Hospital Encounter [facility] Diagnostic Imaging [address] [place] [address] Discharge Disposition: Discharge to home or self care Social History Tobacco Use Types Packs/Day Years Used Date Smoking Tobacco: Former Smokeless Tobacco: Never Alcohol Use Standard Drinks/Week Comments Yes 0 (1 standard drink = 0.6 oz pur e alcohol) Sex and Gender Information Value Date Recorded Sex Assigned at Not on file Legal Sex Male 3:25 PM PLUG ASSEMBLER Gender Identity Not on file Sexual [...] (Latest Contact Info) Description 10/23/2024 10:00 AM PLUG ASSEMBLER Hospital Encounter [facility] Operating Room [address] [place] [address] [place] [address] [address] 10/23/2024 10:00 AM PLUG ASSEMBLER - 10/23/2024 1:00 PM PLUG ASSEMBLER Surgery [facility] Operating Room [address] [place] [address] [place] [address] [address] ARTHROPLASTY TOTAL KNEE LEFT Scheduled Procedures Name Priority Associated Diagnoses Date/Ti me ARTHROPLASTY TOTAL KNEE left knee osteoarthritis 10/23/2024 10:00 AM PLUG ASSEMBLER ESOPHAGOGASTRODUODENOSCOPY Dysphagia, unspecified type documented as of this encounter Procedures Procedure Name Priority Date/Time Associated Diagnosis Comments XR KNEE RIGHT 1 OR 2 VIEWS IP Routine 09/22/2018 10:09 AM PLUG ASSEMBLER documented in this encounter Results * XR Knee Right 1 or 2 Views (09/22/2018 10:09 AM PLUG ASSEMBLER) Anatomical Region Laterality Modality Lower Extremities, Knee Right Computed Radiography 09/22/2018 10:1 6 AM PLUG ASSEMBLER Impressions 09/22/2018 10:17 AM PLUG ASSEMBLER Surgical localization. Electronically signed by: Estelita Evans 09/22/2018 10:17 AM PLUG ASSEMBLER RESULT: EXAMINATION: XR KNEE RIGHT 1 OR [...] on filedocumented in this encounter Care Teams Speech Therapy Teacher Relationship Specialty [place] [address] [address] PCP - General 11/12/16 03/11/22 documented as of this encounter
--- OUTSIDE RECORDS SUMMARY | 2024-10-11 03:07 | XMS_ITS | Encounter Summary ---
Author Organization [facility] Healthcare Address [address] [place] [address] Care Team Providers Care Team Leader/Research Psychologist Name Role Phone Santino Funk MD Primary Care Provider + Encounter Details Date Type Department Care Team (Late st Contact Info) Description 02/01/2018 8:30 PM CDT Lab [address] [address] Social History Tobacco Use Types Packs/Day Years Used Date Smoking Tobacco: Former Alcohol Use Standard Drinks/Week Comments Yes 0 (1 standard drink = 0.6 oz pur e alcohol) Sex and Gender Information Value Date Recorded Sex Assigned at Not on file Legal Sex Male 3:25 PM CASINO SURVEILLANCE OFFICER Gender Identity Not on file Sexual Orientation Not on file documented as of this encounter Plan of Treatment Upcoming Encounters Date Type Department Care Team (Latest Contact Info) Description 10/23/2024 10:00 AM CASINO SURVEILLANCE OFFICER Hospital Encounter [facility] Operating Room [address] [place] [address] [place] [address] [id number] 10/23/2024 10:00 AM CASINO SURVEILLANCE OFFICER - 10/23/2024 1:00 PM CASINO SURVEILLANCE OFFICER Surgery [facility] Operating Room [address] [place] [address] [place] [address] [place] [address] ARTHROPLASTY TOTAL KNEE LEFT Scheduled Procedures Name Priority Associated Diagnoses Date/Ti me ARTHROPLASTY TOTAL KNEE left knee osteoarthritis 10/23/2024 10:00 AM CASINO SURVEILLANCE OFFICER ESOPHAGOGASTRODUODENOSCOPY Dysphagia, unspecified type documented as of this encounter Visit Diagnoses Not on filedocumented in this encounter Care Teams Team Leader/Research Psychologist Relationship Specialty [place] [address] [address] [facility] [address] [place] [address] PCP - General 11/12/16 03/11/22 documented as of this encounter
--- OUTSIDE RECORDS SUMMARY | 2024-10-11 03:07 | XMS_ITS | Encounter Summary ---
Author Organization [facility] Healthcare Address [address] [place] [address] Care Team Providers Care Official Court Interpreter Name Role Phone Santino Funk MD Primary Care Provider + Encounter Details Date Type Department Care Team (Late st Contact Info) Description 08/16/2018 3:35 PM BUTTER LIQUEFIER Lab [facility] [address] [place] [address] [place] [address] [facility] [address] [place] [address] Mild cognitive impairment Discharge Disposition: Discharge to home or self care Social History Tobacco Use Types Packs/Day Years Used Date Smoking Tobacco: Former Smokeless Tobacco: Never Alcohol Use Standard Drinks/Week Comments Yes 0 (1 standard drink = 0.6 oz pur e alcohol) Sex and Gender Information Value Date Recorded Sex Assigned at Not on file Legal Sex Male 3:25 PM BUTTER LIQUEFIER Gender Identity Not on file Sexual Orientation Not on file documented as of this encounter Discharge Disposition Disposition Code Departure Means Destination Discharge to home or self care documented in this encounter Plan of Treatment Upcoming Encounters Date Type Department Care Team (Latest Contact Info) Description 10/23/2024 10:00 AM BUTTER LIQUEFIER Hospital Encounter [facility] Operating Room [address] [place] [address] [place] [address] [facility] [address] [place] [address] 10/23/2024 10:00 AM BUTTER LIQUEFIER - 10/23/2024 1:00 PM BUTTER LIQUEFIER Surgery [facility] Operating Room [address] [place] [address] [place] [address] [address] [place] [address] ARTHROPLASTY TOTAL KNEE LEFT Scheduled Procedures Name Priority Associated Diagnoses Date/Ti me ARTHROPLASTY TOTAL KNEE left knee osteoarthritis 10/23/2024 10:00 AM BUTTER LIQUEFIER ESOPHAGOGASTRODUODENOSCOPY Dysphagia, unspecified type documented as of this encounter Procedures Procedure Name Priority Date/Time Associated Diagnosis Comments THYROID FUNCTION CASCADE Routine 08/16/2018 9:04 AM BUTTER LIQUEFIER Mild cognitive impairment METHYLMALONIC ACID, SERUM Routine 08/16/2018 9:04 AM BUTTER LIQUEFIER Mild cognitive impairment T4, FREE Routine 08/16/2018 9:04 AM BUTTER LIQUEFIER Mild cognitive impairment FOLATE Routine 08/16/2018 9:04 AM BUTTER LIQUEFIER Mild cognitive impairment VITAMIN B12 Routine 08/16/2018 9:04 AM BUTTER LIQUEFIER Mild cognitive impairment documented in this encounter Results * (ABNORMAL) T4, free (08/16/2018 9:04 AM BUTTER LIQUEFIER) Free T4 1.15(H) 0.61 - 1.12 ng/dL [facility] Blood specimen (specimen) 08/16/2018 9:04 AM BUTTER LIQUEFIER 08/16/2018 7:18 PM BUTTER LIQUEFIER Narrative [facility] - 08/16/2018 9:26 PM BUTTER LIQUEFIER Nayan Mahajan II, MD LAB BLOOD ORDERABLES Final R esult [facility] [address] [address] Department [place] [address] * Folate (08/16/2018 9:04 AM BUTTER LIQUEFIER) Pathologist [facility] Folic acid 7.6 >=3.1 ng/mL [facility] Comment: Interpretive Data >3 ?Normal 2.5 - 3.0 Indeterminate <2.5 ?Deficient Current interpretive data was last reviewed on 02/03/2016. Blood specimen (specimen) 08/16/2018 9:04 AM BUTTER LIQUEFIER 08/16/2018 7:18 PM BUTTER LIQUEFIER Narrative [facility] - 08/16/2018 8:18 PM BUTTER LIQUEFIER Nayan Mahajan II, MD LAB BLOOD ORDERABLES Final R esult Performing Organization Address [facility] de Phone Number [facility] [address] [address] [place] [address] * Methylmalonic acid, serum (08/16/2018 9:04 AM BUTTER LIQUEFIER) Pathologist [facility] MMA 0.12 <=0.40 nmol/mL [facility] Comment: ADDITIONAL INFORMATION This test was developed and its performance characteristics determined by [facility] in a manner consistent with CLIA requirements. This test has not been cleared or approved by the U.S. Food and Drug Administration. Test Performed by: [facility] - [address] [address] Blood specimen (specimen) 08/16/2018 9:04 AM BUTTER LIQUEFIER 08/16/2018 7:18 PM BUTTER LIQUEFIER Narrative [facility] - 08/21/2018 12:40 PM BUTTER LIQUEFIER Nayan Mahajan II, MD LAB BLOOD ORDERABLES Final R esult Performing Organization Address [facility] de Phone Number [facility] [address] [facility] [employer] [place], [place] [id number] * (ABNORMAL) TSH reflex to free T4 (08/16/2018 9:04 AM BUTTER LIQUEFIER) TSH 0.40(L) 0.45 - 5.33 mcIUnit/mL [facility] Blood specimen (specimen) 08/16/2018 9:04 AM BUTTER LIQUEFIER 08/16/2018 7:18 PM BUTTER LIQUEFIER Narrative [facility] - 08/16/2018 8:07 PM BUTTER LIQUEFIER Nayan Mahajan II, MD LAB BLOOD ORDERABLES Final R esult Performing Organization Address [facility] de Phone Number [facility] [address] [address] [facility] [place] [address] * Vitamin B12 (08/16/2018 9:04 AM BUTTER LIQUEFIER) Pathologist [facility] Vitamin B12 706 180 - 920 pg/mL [facility] Comment: Interpretive Data Reference Interval (greater than 1 year of age) Normal: ? 180 - 920 pg/ml Indeterminate: ??145 - 180 pg/ml Deficient: ? <145 pg/ml Current Interpretive Data was last revised on 2016 Blood specimen (specimen) 08/16/2018 9:04 AM BUTTER LIQUEFIER 08/16/2018 7:18 PM BUTTER LIQUEFIER Narrative [facility] - 08/16/2018 8:19 PM BUTTER LIQUEFIER Nayan Mahajan II, MD LAB BLOOD ORDERABLES Final R esult Performing Organization Address [facility] de Phone Number [facility] [address] [address] [facility] [place] [address] documented in this encounter Visit Diagnoses Diagnosis Mild cognitive impairment Mild cognitive impairment, so stated documented in this encounter Care Teams Official Court Interpreter Relationship Specialty [place] [address] [address] [place] [address] PCP - General 11/12/16 03/11/22 documented as of this encounter
--- OUTSIDE RECORDS SUMMARY | 2024-10-11 03:07 | XMS_ITS | Encounter Summary ---
Author Organization [facility] Address [address] [facility] [address] [place] [address] Care Team Providers Care Orientation & Mobility Specialist Name Role Phone Santino Funk MD Primary Care Provider + Encounter Details Date Type Department Care Team (Late st Contact Info) Description 10/12/2018 Telephone [facility] [address] [address] [place] [address] [address] Social History Tobacco Use Types Packs/Day Years Used Date Smoking Tobacco: Former Smokeless Tobacco: Never Alcohol Use Standard Drinks/Week Comments Yes 0 (1 standard drink = 0.6 oz pur e alcohol) Sex and Gender Information Value Date Recorded Sex Assigned at Not on file Legal Sex Male 3:25 PM BOOTMAKER HAND Gender Identity Not on file Sexual Orientation Not on file documented as of this encounter Miscellaneous Notes * Telephone Encounter - Natali Bran - 10/12/2018 2:38 PM CST Refilled on Oxycodone 7.5/325 MAKER HAND documented in this encounter Plan of Treatment Upcoming Encounters Date Type Department Care Team (Latest Contact Info) Description 10/23/2024 10:00 AM BOOTMAKER HAND Hospital Encounter [facility] Operating Room [address] [place] [address] [place] [address] [address] 10/23/2024 10:00 AM BOOTMAKER HAND - 10/23/2024 1:00 PM BOOTMAKER HAND Surgery [facility] Operating Room [address] [place] [address] [place] [address] [address] ARTHROPLASTY TOTAL KNEE LEFT Scheduled Procedures Name Priority Associated Diagnoses Date/Ti me ARTHROPLASTY TOTAL KNEE left knee osteoarthritis 10/23/2024 10:00 AM BOOTMAKER HAND ESOPHAGOGASTRODUODENOSCOPY Dysphagia, unspecified type documented as of this encounter Visit Diagnoses Not on filedocumented in this encounter Care Teams Orientation & Mobility Specialist Relationship Specialty [place] [address] [facility] [address] [address] PCP - General 11/12/16 03/11/22 documented as of this encounter
--- OUTSIDE RECORDS SUMMARY | 2024-10-11 03:07 | XMS_ITS | Encounter Summary ---
Author Organization [facility] Healthcare Address [address] [place] [address] Care Team Providers Care Steam Bone Press Tender Name Role Phone Santino Funk MD Primary Care Provider + Encounter Details Date Type Department Care Team (Latest Contact Info) Description 09/22/2018 7:32 AM METAL PLATER - 09/22/2018 11:59 PM METAL PLATER Hospital Encounter [facility] Diagnostic Imaging [address] [place] [address] Discharge Disposition: Discharge to home or self care Social History Tobacco Use Types Packs/Day Years Used Date Smoking Tobacco: Former Smokeless Tobacco: Never Alcohol Use Standard Drinks/Week Comments Yes 0 (1 standard drink = 0.6 oz pur e alcohol) Sex and Gender Information Value Date Recorded Sex Assigned at Not on file Legal Sex Male 3:25 PM METAL PLATER Gender Identity Not on file Sexual Orientation [...] Contact Info) Description 10/23/2024 10:00 AM METAL PLATER Hospital Encounter [facility] Operating Room [address] [place] [address] [place] [address] [address] 10/23/2024 10:00 AM METAL PLATER - 10/23/2024 1:00 PM METAL PLATER Surgery [facility] Operating Room [address] [place] [address] [place] [address] [address] ARTHROPLASTY TOTAL KNEE LEFT Scheduled Procedures Name Priority Associated Diagnoses Date/Ti me ARTHROPLASTY TOTAL KNEE left knee osteoarthritis 10/23/2024 10:00 AM METAL PLATER ESOPHAGOGASTRODUODENOSCOPY Dysphagia, unspecified type documented as of this encounter Procedures Procedure Name Priority Date/Time Associated Diagnosis Comments XR KNEE LEFT 1 OR 2 VIEWS IP Routine 09/22/2018 10:07 AM METAL PLATER documented in this encounter Results * XR Knee Left 1 or 2 Views (09/22/2018 10:07 AM METAL PLATER) Anatomical Region Laterality Modality Lower Extremities, Knee Left Computed Radiography 09/22/2018 10:1 7 AM METAL PLATER Impressions 09/22/2018 10:18 AM METAL PLATER Radiographic localization Electronically signed by: Beka Draper M.D. Narrative 09/22/2018 10:18 AM METAL PLATER RESULT: EXAMINATION: XR KNEE LEFT 1 OR [...] filedocumented in this encounter Care Teams Steam Bone Press Tender Relationship Specialty [place] [address] [address] PCP - General 11/12/16 03/11/22 documented as of this encounter
--- OUTSIDE RECORDS SUMMARY | 2024-10-11 03:08 | XMS_ITS | Encounter Summary ---
Author Organization [facility] Healthcare Address [address] [place] [address] Care Team Providers Care Forge Operator Name Role Phone Unavailable Primary Care Provider Unavailabl e Encounter Details Date Type Department Care Team (Late st Contact Info) Description 12/08/2010 12:01 AM DIRECTOR OF DIRECT MARKETING - 12/08/2010 11:59 PM DIRECTOR OF DIRECT MARKETING Hospital Encounter [facility] [place], [place] [address] [facility] [place], [place] [id number] Backache; Memory loss Social History Tobacco Use Types Packs/Day Years Used Date Smoking Tobacco: Never Assessed Sex and Gender Information Value Date Recorded Sex Assigned at Not on file Legal Sex Male 3:25 PM DIRECTOR OF DIRECT MARKETING Gender Identity Not on file Sexual Orientation Not on file documented as of this encounter Plan of Treatment Upcoming Encounters Date Type Department Care Team (Latest Contact Info) Description 10/23/2024 10:00 AM DIRECTOR OF DIRECT MARKETING Hospital Encounter [facility] Operating Room [address] [place] [address] [place] [address] [id number] 10/23/2024 10:00 AM DIRECTOR OF DIRECT MARKETING - 10/23/2024 1:00 PM DIRECTOR OF DIRECT MARKETING Surgery [facility] Operating Room [address] [place] [address] [place] [address] [facility] [address] [place] [address] ARTHROPLASTY TOTAL KNEE LEFT Scheduled Procedures Name Priority Associated Diagnoses Date/Ti me ARTHROPLASTY TOTAL KNEE left knee osteoarthritis 10/23/2024 10:00 AM DIRECTOR OF DIRECT MARKETING ESOPHAGOGASTRODUODENOSCOPY Dysphagia, unspecified type documented as of this encounter Visit Diagnoses Diagnosis Backache Unspecified backache Memory loss documented in this encounter
--- OUTSIDE RECORDS SUMMARY | 2024-10-11 03:08 | XMS_ITS | Encounter Summary ---
Author Organization [facility] Healthcare Address [address] [place] [address] Care Team Providers Care Manager Pmo Name Role Phone Santino Funk MD Primary Care Provider + Encounter Details Date Type Department Care Team (Late st Contact Info) Description 01/26/2018 12:00 PM CDT - 01/26/2018 11:59 PM CDT Hospital Encounter [facility] Imaging and Radiology [address] [place] [address] Gianna Kelly MD PhD [address] [phone] [place] [address] 1, Ronni Soriano Md Breast pain, left Discharge Disposition: Discharge to home or self care Social History Tobacco Use Types Packs/Day Years Used Date Smoking Tobacco: Former Alcohol Use Standard Drinks/Week Comments Yes 0 (1 standard drink = 0.6 oz pur e alcohol) Sex and Gender Information Value Date Recorded Sex Assigned at Not on file Legal Sex Male 3:25 PM RESIDENT ASSISTANT CNA Gender Identity Not on file Sexual Orientation [...] (Latest Contact Info) Description 10/23/2024 10:00 AM RESIDENT ASSISTANT CNA Hospital Encounter [facility] Operating Room [address] [place] [address] [place] [address] [address] 10/23/2024 10:00 AM RESIDENT ASSISTANT CNA - 10/23/2024 1:00 PM RESIDENT ASSISTANT CNA Surgery [facility] Operating Room [address] [place] [address] [place] [address] [address] ARTHROPLASTY TOTAL KNEE LEFT Scheduled Procedures Name Priority Associated Diagnoses Date/Ti me ARTHROPLASTY TOTAL KNEE left knee osteoarthritis 10/23/2024 10:00 AM RESIDENT ASSISTANT CNA ESOPHAGOGASTRODUODENOSCOPY Dysphagia, unspecified type documented as of [...] left documented in this encounter Care Teams Manager Pmo Relationship Specialty [place] [address] [address] PCP - General 11/12/16 03/11/22 documented as of this encounter
--- OUTSIDE RECORDS SUMMARY | 2024-10-11 03:08 | XMS_ITS | Encounter Summary ---
Author Organization [facility] Healthcare Address [address] [place] [address] Care Team Providers Care Services Mgr Name Role Phone Santino Funk MD Primary Care Provider + Encounter Details Date Type Department Care Team (Late st Contact Info) Description 01/26/2018 12:37 PM CDT - 01/26/2018 11:59 PM CDT Hospital Encounter [facility] [address] [place] [address] Gianna Kelly MD PhD [address] [id number] [place] [address] Breast pain, left Discharge Disposition: Discharge to home or self care Social History Tobacco Use Types Packs/Day Years Used Date Smoking Tobacco: Former Alcohol Use Standard Drinks/Week Comments Yes 0 (1 standard drink = 0.6 oz pur e alcohol) Sex and Gender Information Value Date Recorded Sex Assigned at Not on file Legal Sex Male 3:25 PM TIRE RECAPPER Gender Identity Not on file Sexual Orientation [...] (Latest Contact Info) Description 10/23/2024 10:00 AM TIRE RECAPPER Hospital Encounter Operating Room [address] [place] [address] [place] [id number] [place] [address] 10/23/2024 10:00 AM TIRE RECAPPER - 10/23/2024 1:00 PM TIRE RECAPPER Surgery Operating Room [address] [place] [address] [place] [address] [address] ARTHROPLASTY TOTAL KNEE LEFT Scheduled Procedures Name Priority Associated Diagnoses Date/Ti me ARTHROPLASTY TOTAL KNEE left knee osteoarthritis 10/23/2024 10:00 AM TIRE RECAPPER ESOPHAGOGASTRODUODENOSCOPY Dysphagia, unspecified type documented as of [...] left documented in this encounter Care Teams Services Mgr Relationship Specialty [place] [address] [address] PCP - General 11/12/16 03/11/22 documented as of this encounter
--- OUTSIDE RECORDS SUMMARY | 2024-10-11 03:08 | XMS_ITS | Encounter Summary ---
Author Organization [facility] Healthcare Address [address] [place] [address] Care Team Providers Care Ship Superintendent Name Role Phone Santino Funk MD Primary Care Provider + Encounter Details Date Type Department Care Team (Late st Contact Info) Description 10/21/2016 10:11 AM PATIENT FINANCIAL SERVICES COORDINATOR - 10/21/2016 11:59 PM [facility] [place] [address] [facility] [address] [place], [place] [id number] Essential tremor; Diplopia Social History Tobacco Use Types Packs/Day Years Used Date Smoking Tobacco: Former Alcohol Use Standard Drinks/Week Comments Yes 0 (1 standard drink = 0.6 oz pur e alcohol) Sex and Gender Information Value Date Recorded Sex Assigned at Not on file Legal Sex Male 3:25 PM PATIENT FINANCIAL SERVICES COORDINATOR Gender Identity Not on file Sexual [...] Contact Info) Description 10/23/2024 10:00 AM PATIENT FINANCIAL SERVICES COORDINATOR Hospital Encounter [facility] Operating Room [address] [place] [address] [place] [address] [address] 10/23/2024 10:00 AM PATIENT FINANCIAL SERVICES COORDINATOR - 10/23/2024 1:00 PM PATIENT FINANCIAL SERVICES COORDINATOR Surgery [facility] Operating Room [id number] [place] [address] [place] [address] [id number] ARTHROPLASTY TOTAL KNEE LEFT Scheduled Procedures Name Priority Associated Diagnoses Date/Ti me ARTHROPLASTY TOTAL KNEE left knee osteoarthritis 10/23/2024 10:00 AM PATIENT FINANCIAL SERVICES COORDINATOR ESOPHAGOGASTRODUODENOSCOPY Dysphagia, unspecified type documented as of this encounter Procedures Procedure Name Priority Date/Time Associated Diagnosis Comments SERUM ANTI-ACETYLCHOLINE (ACH) RECEPTOR AB Routine 10/21/2016 10:15 AM PATIENT FINANCIAL SERVICES COORDINATOR DISCHARGE LABORATORY CUMULATIVE REPORT 10/21/2016 documented in this encounter Results * Serum anti-acetylcholine (ACH) receptor ab (10/21/2016 10:15 AM PATIENT FINANCIAL SERVICES COORDINATOR) Anti-acetylcholine receptor, binding 0.00 <=0.02 nmol/L CDR HISTORICAL RESULTS Comment: ADDITIONAL INFORMATION This test was developed and its performance characteristics determined by [facility] in a manner consistent with CLIA requirements. This test has not been cleared or approved by the U.S. Food and Drug Administration. Test Performed by: [address] [address] Tire Service Technician: Byron Nance II, M.D., Ph.D. Serum 10/21/2016 10:1 5 AM PATIENT FINANCIAL SERVICES COORDINATOR Nayan Mahajan II, MD LAB BLOOD ORDERABLES Final R esult CDR HISTORICAL RESULTS * DISCHARGE LABORATORY CUMULATIVE REPORT (10/21/2016) Narrative 10/21/2016 Ordered by an unspecified provider. Historical Provider MD LAB BLOOD ORDERABLES Krystina l Result documented in this encounter Visit Diagnoses Diagnosis Essential tremor Diplopia documented in this encounter Care Teams Ship Superintendent Relationship Specialty [place] [address] [address] PCP - General 10/21/16 11/11/16 documented as of this encounter
--- OUTSIDE RECORDS SUMMARY | 2024-10-11 03:08 | XMS_ITS | Encounter Summary ---
Author Organization [facility] Healthcare Address [address] [place] [address] Care Team Providers Care Shirt Folding Machine Operator Name Role Phone Unavailable Primary Care Provider Unavailabl e Encounter Details Date Type Department Care Team (Late st Contact Info) Description 05/15/2007 3:38 PM CDT - 05/16/2007 6:06 PM CDT Hospital Encounter [facility], [place] [address] [id number] Social History Tobacco Use Types Packs/Day Years Used Date Smoking Tobacco: Never Assessed Sex and Gender Information Value Date Recorded Sex Assigned at Not on file Legal Sex Male 3:25 PM TOOL ROOM ATTENDANT Gender Identity Not on file Sexual Orientation Not on file documented as of this encounter Plan of Treatment Upcoming Encounters Date Type Department Care Team (Latest Contact Info) Description 10/23/2024 10:00 AM TOOL ROOM ATTENDANT Hospital Encounter [facility] Operating Room [address] [place] [address] [place] [address] [id number] 10/23/2024 10:00 AM TOOL ROOM ATTENDANT - 10/23/2024 1:00 PM TOOL ROOM ATTENDANT Surgery [facility] Operating Room [address] [place] [address] [place] [address] [address] [place] [address] ARTHROPLASTY TOTAL KNEE LEFT Scheduled Procedures Name Priority Associated Diagnoses Date/Ti me ARTHROPLASTY TOTAL KNEE left knee osteoarthritis 10/23/2024 10:00 AM TOOL ROOM ATTENDANT ESOPHAGOGASTRODUODENOSCOPY Dysphagia, unspecified type documented as of this encounter Visit Diagnoses Not on filedocumented in this encounter
--- OUTSIDE RECORDS SUMMARY | 2024-10-11 03:08 | XMS_ITS | Encounter Summary ---
Author Organization [facility] Healthcare Address [address] [place] [address] Care Team Providers Care Svp Digital Sales Name Role Phone Unavailable Primary Care Provider Unavailabl e Encounter Details Date Type Department Care Team (Late st Contact Info) Description 01/09/2010 8:16 AM CDT - 01/09/2010 11:59 PM CDT Hospital Encounter [facility] CLINCON[facility] Good, [place] [address] [facility] [place], [place] [phone] Abdominal pain Social History Tobacco Use Types Packs/Day Years Used Date Smoking Tobacco: Never Assessed Sex and Gender Information Value Date Recorded Sex Assigned at Not on file 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 Gender Identity Not on file Sexual Orientation Not on file documented as of this encounter Plan of Treatment Upcoming Encounters Date Type Department Care Team (Latest Contact Info) Description 10/23/2024 10:00 AM LOWER SCHOOL MUSIC TEACHER Hospital Encounter [facility] Operating Room [address] [place] [address] [place] [address] [phone] 10/23/2024 10:00 AM LOWER SCHOOL MUSIC TEACHER - 10/23/2024 1:00 PM LOWER SCHOOL MUSIC TEACHER Surgery [facility] Operating Room [address] [place] [address] [place] [address] [facility] [address] [place] [address] ARTHROPLASTY TOTAL KNEE LEFT Scheduled Procedures Name Priority Associated Diagnoses Date/Ti me ARTHROPLASTY TOTAL KNEE left knee osteoarthritis 10/23/2024 10:00 AM LOWER SCHOOL MUSIC TEACHER ESOPHAGOGASTRODUODENOSCOPY Dysphagia, unspecified type documented as of this encounter Visit Diagnoses Diagnosis Abdominal pain Abdominal pain, unspecified site documented in this encounter
--- OUTSIDE RECORDS SUMMARY | 2024-10-11 03:08 | XMS_ITS | Encounter Summary ---
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 Surgery [facility] Operating Room [address] [place] [address] [place] [address] [address] ARTHROPLASTY TOTAL KNEE LEFT Scheduled Procedures Name Priority Associated Diagnoses Date/Ti me ARTHROPLASTY TOTAL KNEE left knee osteoarthritis 10/23/2024 10:00 AM LIFE ENRICHMENT SPECIALIST ESOPHAGOGASTRODUODENOSCOPY Dysphagia, unspecified type documented as of this encounter Visit Diagnoses Not on filedocumented in this encounter
--- OUTSIDE RECORDS SUMMARY | 2024-10-11 03:08 | XMS_ITS | Encounter Summary ---
Author Organization [facility] Healthcare Address [address] [place] [address] Care Team Providers Care Case Assistant Name Role Phone Feliberto Funk MD Primary Care Provider + Encounter Details Date Type Department Care Team (Late st Contact Info) Description 09/23/2016 11:34 AM CHARGING MACHINE OPERATOR - 09/23/2016 11:59 PM [facility] Hospital Encounter [place] [address] [facility] [address] [place] [address] Low vision, both eyes; Abnormality of gait and mobility Social History Tobacco Use Types Packs/Day Years Used Date Smoking Tobacco: Former Alcohol Use Standard Drinks/Week Comments Yes 0 (1 standard drink = 0.6 oz pur e alcohol) Sex and Gender Information Value Date Recorded Sex Assigned at Not on file Legal Sex Male 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 Gender Identity Not on file Sexual Orientation Not on file documented as of this encounter Plan of Treatment Upcoming Encounters Date Type Department Care Team (Latest Contact Info) Description 10/23/2024 10:00 AM CHARGING MACHINE OPERATOR Hospital Encounter [facility] Operating Room [address] [place], [place] [phone] [place] [address] [facility] [address] [place] [address] 10/23/2024 10:00 AM CHARGING MACHINE OPERATOR - 10/23/2024 1:00 PM CHARGING MACHINE OPERATOR Surgery [facility] Operating Room [address] [place] [address] [place] [address] [facility] [address] [place] [address] ARTHROPLASTY TOTAL KNEE LEFT Scheduled Procedures Name Priority Associated Diagnoses Date/Ti me ARTHROPLASTY TOTAL KNEE left knee osteoarthritis 10/23/2024 10:00 AM CHARGING MACHINE OPERATOR ESOPHAGOGASTRODUODENOSCOPY Dysphagia, unspecified type documented as of this encounter Procedures Procedure Name Priority Date/Time Associated Diagnosis Comments MRI BRAIN W WO CONTRAST Routine 09/23/2016 1:28 PM CHARGING MACHINE OPERATOR SERUM ESTIMATED GLOMERULAR FILTRATION RATE Routine 09/23/2016 11:46 AM CHARGING MACHINE OPERATOR BLOOD CREATININE Routine 09/23/2016 11:4 6 AM CHARGING MACHINE OPERATOR DISCHARGE LABORATORY CUMULATIVE REPORT 09/23/2016 documented in this encounter Results * MRI Brain W WO Contrast (09/23/2016 1:28 PM CHARGING MACHINE OPERATOR) Anatomical Region Laterality Modality Head and Neck N/A Magnetic Resonan ce 09/23/2016 1:28 PM CHARGING MACHINE OPERATOR Narrative 09/24/2016 10:00 PM CHARGING MACHINE OPERATOR DATE OF EXAM: ??Sep 23 2016 ??1:28PM Acc#: ??[id number] ??EMR [id number] - MR IACs incl Brain [...] IN THE CEREBELLOPONTINE ANGLE OR IAC. ? SPECIALIZED DEVELOPER: ??DM2 TRANSCRIBE DATE/TIME: ??Sep 23 2016 ??8:44P RADIOLOGIST: ??TREMAINE LACY M.D. ??READ ON: ??Sep 23 2016 ??3:27P ORDERING DR: FELIBERTO NATARAJAN M.D. ? THIS DOCUMENT HAS BEEN ELECTRONICALLY SIGNED BY: ??TREMAINE LACY M.D. ??ON: ??Sep 24 2016 10:00P Attending: ??ROSA ISELA, ??FELIBERTO Requesting: ??ROSA ISELA, ??FELIBERTO Requesting Fax: ??[phone] Attending Fax: ??[phone] Attending ID: ??[id number] Requesting ID: ??[id number] Report To 1 ID: ?? Report To 1 Name: ??, ?? Report To 1 FAX: ??-- Report To 2 ID: ?? Report To 2 Name: ??, ?? Report To 2 FAX: ??-- NextGen Order #: ?? Procedure Note Provider, MD Garett - 02/16/2017 DATE OF EXAM: Sep 23 2016 1:28PM Acc#: [id number] EMR 0211 - MR IACs incl Brain [...] SEEN IN THE CEREBELLOPONTINE ANGLE OR IAC. SPECIALIZED DEVELOPER: MINERVA TRANSCRIBE DATE/TIME: Sep 23 2016 8:44P RADIOLOGIST: TREMAINE LACY M.D. READ ON: Sep 23 2016 3:27P ORDERING DR: FELIBERTO NATARAJAN M.D. THIS DOCUMENT HAS BEEN ELECTRONICALLY SIGNED BY: TREMAINE LCAY M.D. ON: Sep 24 2016 10:00P Attending: FELIBERTO NATARAJAN Requesting: FELIBERTO NATARAJAN Requesting Attending Attending ID: [id number] Requesting ID: [id number] Report To 1 ID: Report To 1 Name: , Report To 1 FAX: -- Report To 2 ID: Report To 2 Name: , Report To 2 FAX: -- NextGen Order #: Historical Provider IMG MRI PROCEDURES Final Result * Serum estimated glomerular filtration rate (09/23/2016 11:46 AM CHARGING MACHINE OPERATOR) eGFR >60 ml/min/1.73 m2 CDR HISTORICAL RESULTS Serum 09/23/2016 11:4 6 AM CHARGING MACHINE OPERATOR Result [facility] Feliberto Funk MD LAB BLOOD ORDERABLES Fin al Result Performing Organization Address [facility] de Phone Number CDR HISTORICAL RESULTS * Blood creatinine (09/23/2016 11:46 AM CHARGING MACHINE OPERATOR) Creatinine 1.15 0.70 - 1.40 mg/dl CDR HISTORICAL RESULTS Blood specimen (specimen) 09/23/2016 11:46 AM CHARGING MACHINE OPERATOR Feliberto Funk MD LAB BLOOD ORDERABLES Fin al Result Performing Organization Address [facility] de Phone Number CDR HISTORICAL RESULTS * DISCHARGE LABORATORY CUMULATIVE REPORT (09/23/2016) Narrative 09/23/2016 Ordered by an unspecified provider. Historical Provider LAB BLOOD ORDERABLES Krystina l Result documented in this encounter Visit Diagnoses Diagnosis Low vision, both eyes Moderate or severe vision impairment, both eyes, impairment level not further specified Abnormality of gait and mobility documented in this encounter Care Teams Case Assistant Relationship Specialty [place] [address] [address] [place] [address] PCP - General 06/27/12 10/20/16 documented as of this encounter
--- OUTSIDE RECORDS SUMMARY | 2024-10-11 03:08 | XMS_ITS | Encounter Summary ---
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 Gender Identity Not on file Sexual Orientation Not on file documented as of this encounter Plan of Treatment Upcoming Encounters Date Type Department Care Team (Latest Contact Info) Description 10/23/2024 10:00 AM BUSINESS MANAGEMENT PROFESSOR Hospital Encounter [facility] Operating Room [address] [place] [address] [place] [address] [facility] [address] [place] [address] 10/23/2024 10:00 AM BUSINESS MANAGEMENT PROFESSOR - 10/23/2024 1:00 PM BUSINESS MANAGEMENT PROFESSOR Surgery [facility] Operating Room [address] [place] [address] [place] [address] [facility] [address] [place] [address] ARTHROPLASTY TOTAL KNEE LEFT Scheduled Procedures Name Priority Associated Diagnoses Date/Ti me ARTHROPLASTY TOTAL KNEE left knee osteoarthritis 10/23/2024 10:00 AM BUSINESS MANAGEMENT PROFESSOR ESOPHAGOGASTRODUODENOSCOPY Dysphagia, unspecified type documented as of this encounter Visit Diagnoses Diagnosis Pain in soft tissues of limb Swelling of limb Tear of medial cartilage or meniscus of knee, current Accident Unspecified accident Unspecified place of occurrence Effusion of lower leg joint Other enthesopathy of knee Exostosis Exostosis of unspecified site documented in this encounter
== END 2024-10-04 03:04 | disposition home or self-care (01) ==
PROVIDERS: Emergency Provider Emergency Medicine; PCP Family Medicine
DX: R21 Rash and other nonspecific skin eruption (principal); S50.811A Abrasion of right forearm, initial encounter; E89.0 Postprocedural hypothyroidism; M19.90 Unspecified osteoarthritis, unspecified site; F03.90 Unspecified dementia, unspecified severity, without behavioral disturbance, psychotic disturbance, mood disturbance, and anxiety; K21.9 Gastro-esophageal reflux disease without esophagitis; I48.91 Unspecified atrial fibrillation; N40.0 Benign prostatic hyperplasia without lower urinary tract symptoms; D64.9 Anemia, unspecified
CPT/HCPCS: 99283; A9270

== ENCOUNTER 2025-01-04 12:15 | Outpatient (RCR) | payer MEDICARE, MEDICAID, SELFPAY ==
--- NOTE | 2024-11-06 11:42 | OTOPEVAL1 ---
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 He is s/p inpatient rehab and then a day institute. He has not had any therapy in a couple months and feels like he has gotten weaker . He reports he was able to raise his arm above his head and now he is unable to do that. He presents today walking with a cane with his left hand in his vest pocket. He has an arm sling but he has not worn it. He reports his left shoulder is painful, rating 5/10 with passive flexion. He lives at home with his . She helps him with getting dressed. She helps with drying his back after a shower, otherwise he does his own shower. He states he puts his socks on 1-handed. He reports his left hand/arm is not very functional. He is right handed. Reported Pain Level Pain Score 0: Self Report Additional Pain Score Comments No pain at rest. 5/10 with passive ROM. The pain can get above 5/10 if the arm is jerked suddenly or if the arm gets caught under him when he's sleeping. Assessment OT Clinical Summary Patient referred to OT with left sided weakness following a CVA x11 months ago. He presents with gross left UE weakness and very minimal wrist and hand strength which severely limits left hand use for ADLs. Skilled OT indicated to maximize functional use of his left UE via therapeutic exercise, HEP instruction, e-stim, positioning education, and adaptive ADL education as needed. Plan of Care Interventions Therapeutic Exercise,Neuro Re-education, Therapeutic Activities,Electrical Stimulation, Check Out for Orthotic/Prosthetic OT Services Indicated Yes Treatment Frequency and 2x/week for 10 visits Duration These treatments will address the objective and functional deficits as defined above. The patient will be advanced safely and appropriately in order for the patient to progress towards his/her prior level of function. Additional exercises will be introduced and as well as a comprehensive home exercise program upon discharge, if needed, ?to ensure carryover of functional gains achieved in the clinic. This treatment plan has been reviewed and agreement upon by the patient.
--- NOTE | 2024-11-06 11:42 | OPREHPOC ---
Outpatient Therapy Plan of Care This is a Multidisciplinary Plan of Care that may contain components documented by all disciplines (PT, OT, and ST.) OT Problem 1 OT Problem #1 Knowledge Deficit OT Goal 1 Goal / Goal Update Patient to be independent with instructed materials. Target Visit 10 OT Problem 2 OT Problem #2 Impaired Strength OT Goal 1 Goal / Goal Update Increase strength of the left UE for ADLs as measured by: - improving left shoulder flexion to 70 degrees to be able to assist in getting himself dressed - improving left elbow flexion strength to be able to touch his chin/face with the left hand - improving left wrist flexion/extension strength to 3/5 for improved hand positioning during ADLs - improving left finger flexion strength to 3+/5 for improved business intelligence director on objects during ADLs. Target Visit 10
--- NOTE | 2024-11-20 11:22 | PCOTNOTE ---
Patient called & cancelled scheduled appointment this date. States I can't make it.
--- NOTE | 2024-11-27 08:54 | OPREHPOC ---
Outpatient Therapy Plan of Care This is a Multidisciplinary Plan of Care that may contain components documented by all disciplines (PT, OT, and ST.) PT Problem 1 PT Problem #1 Knowledge Deficit PT Goal 1 Goal / Goal Update *indep with HEP Target Visit 10 PT Problem 2 PT Problem #2 Impaired Strength PT Goal 1 Goal / Goal Update increase strength of L LE to 4-/5, to improve mobility skills and safety Target Visit 10 PT Problem 3 PT Problem #3 Impaired Functional Mobility PT Goal 1 Goal / Goal Update improve functional mobility to decrease risk for falls: 1* Tinetti balance/gait score of 24/28 2* 5 reps sit/stand with use of 1 UE in 18 seconds 3* 2 minute walking distance of 125' with cane Target Visit 10 OT Problem 1 OT Problem #1 Knowledge Deficit OT Goal 1 Goal / Goal Update Patient to be independent with instructed materials. Target Visit 10 OT Problem 2 OT Problem #2 Impaired Strength OT Goal 1 Goal / Goal Update Increase strength of the left UE for ADLs as measured by: - improving left shoulder flexion to 70 degrees to be able to assist in getting himself dressed - improving left elbow flexion strength to be able to touch his chin/face with the left hand - improving left wrist flexion/extension strength to 3/5 for improved hand positioning during ADLs - improving left finger flexion strength to 3+/5 for improved validation architect on objects during ADLs. Target Visit 10
--- NOTE | 2024-11-27 08:54 | PTOPEVAL1 ---
Assessment and note entered by Breana Edwards, PT Evaluation Information Assessment Status Evaluation ICD-10 Condition Codes (PT) Repeated falls R29.6,Difficulty Walking R26.2, Abnormalities of gait and mobility R26.9,Weakness R53.1 Other ICD-10 Condition Codes ( CVAI63.9; PT) Onset Nov 2023 Subjective Information had CVA Nov 2023, weakness, falls and decreased mobility since then in home, use manual w/c & cane for mobility; go out into the community with cane, and use the electric cart at the stores; have 2 entry steps into home and does OK with them. have a basement with chair lift home with , she assist pt PRN with dressing, and home tasks; pt can do some home activities, from w/c and stand short time only; have pain and arthritis in L knee--need to get TKR and that would help his walking; in the past 6 months, have fallen 6x with walking and L knee gives out or trip over something; when fall, cannot get up from the floor, have to get ambulance or emergency people get him up. do not do any exercises at home; have had PT in the past, not had any for few months. Goal: get stronger; going to orthopedic dr about L TKR Reported Pain Level Pain Score Self Report Additional Pain Score Comments no pain in L knee, just weak, tired and gives way Assessment PT Clinical Summary Abrahan has the diagnosis of weakness and falls, s/ p CVA with L side weakness. He is at home with his , using a w/c and cane for mobility. He has L knee arthritis and is going to see ortho dr about TKR. With the evaluation: Tinetti balance score of 17/ 28= high risk for falls; 2 minute walking test distance with cane of 80'; 5 reps sit/stand with use of 1 UE in 23 seconds; weakness of L LE and has L foot drag with walking. Skilled PT services are indicated to increase LE strength, gait and balance skills, to improve safety with mobility. Education for HEP and safety with mobility. Plan of Care Interventions Gait Training,Neuro Re-education,Patient/Caregiver Education,Therapeutic Activities,Therapeutic Exercise PT Services Indicated Yes Treatment Frequency and 2x/wk for 10 visits Duration These treatments will address the objective and functional deficits as defined above. The patient will be advanced safely and appropriately in order for the patient to progress towards his/her prior level of function. Additional exercises will be introduced and as well as a comprehensive home exercise program upon discharge, if needed, ?to ensure carryover of functional gains achieved in the clinic. This treatment plan has been reviewed and agreement upon by the patient.
--- NOTE | 2024-12-15 08:17 | PCOTNOTE ---
Patient arrived to appointment today, but when walking in he reports he has to cancel due to having an accident.
--- NOTE | 2024-12-15 08:38 | PCPTNOTE ---
Pt canceled after having an accident on his way to therapy.
--- NOTE | 2024-12-25 10:09 | OTOPPROG ---
Assessment and note entered by Jesse Montoya, CHARLES/Cory, PHILLIPT OT Progress Update 12/25/24 Assessment Status Progress Diagnosis M69.992, M75.112 Subjective Information Patient reports functional progress in the left UE since the start of care. He reports he is now able to hold a wash cloth in his left hand and help wash his body in the shower. He reports he can move the left UE when repositioning himself without relying on the right UE to move the left. He reports he is no longer having shoulder pain. Assessment OT Clinical Summary Patient referred to OT with left sided weakness following a CVA x11 months ago. He presents today for OT re-evaluation. He demonstrates improved ROM and strength in all joints of the left UE. He no longer experiencing shoulder pain. He is also incorporating his left hand/UE into functional ADL tasks. He continues to demonstrate significant weakness and functional limitations. Continued skilled OT indicated to maximize functional use of his left UE via therapeutic exercise, HEP instruction, e-stim, positioning education, and adaptive ADL education as needed. Plan of Care Interventions Therapeutic Exercise,Neuro Re-education, Therapeutic Activities,Electrical Stimulation, Check Out for Orthotic/Prosthetic OT Services Indicated Yes Treatment Frequency and 2x/week for 10 visits Duration These treatments will address the objective and functional deficits as defined above. The patient will be advanced safely and appropriately in order for the patient to progress towards his/her prior level of function. Additional exercises will be introduced and as well as a comprehensive home exercise program upon discharge, if needed, ?to ensure carryover of functional gains achieved in the clinic. This treatment plan has been reviewed and agreement upon by the patient.
--- NOTE | 2024-12-25 10:10 | OPREHPOC ---
Outpatient Therapy Plan of Care This is a Multidisciplinary Plan of Care that may contain components documented by all disciplines (PT, OT, and ST.) PT Problem 1 PT Problem #1 Knowledge Deficit PT Goal 1 Goal / Goal Update *indep with HEP Target Visit 10 PT Problem 2 PT Problem #2 Impaired Strength PT Goal 1 Goal / Goal Update increase strength of L LE to 4-/5, to improve mobility skills and safety Target Visit 10 PT Problem 3 PT Problem #3 Impaired Functional Mobility PT Goal 1 Goal / Goal Update improve functional mobility to decrease risk for falls: 1* Tinetti balance/gait score of 24/28 2* 5 reps sit/stand with use of 1 UE in 18 seconds 3* 2 minute walking distance of 125' with cane Target Visit 10 OT Problem 1 OT Problem #1 Knowledge Deficit OT Goal 1 Goal / Goal Update Patient to be independent with instructed materials. ---OT POC UPDATE 12/25/24--- Met Target Visit 20 OT Problem 2 OT Problem #2 Impaired Strength OT Goal 1 Goal / Goal Update Increase strength of the left UE for ADLs as measured by: - improving left shoulder flexion to 70 degrees to be able to assist in getting himself dressed - improving left elbow flexion strength to be able to touch his chin/face with the left hand - improving left wrist flexion/extension strength to 3/5 for improved hand positioning during ADLs - improving left finger flexion strength to 3+/5 for improved agronomy teacher on objects during ADLs. ---OT POC UPDATE 12/25/24--- - left shoulder flexion improved to 50 deg, continue to 70 deg - elbow flexion strength improved to 3/5, he continues to be unable to touch chin, progress to touching left hand to chin. - left wrist flexion/extension strength progressed with flexion, however not with extension, continue goal - left finger flexion strength improved to 2-/5, continue to 3+/5 for improved agronomy teacher for ADLs Target Visit 20
--- NOTE | 2024-12-28 09:59 | OPREHPOC ---
Outpatient Therapy Plan of Care This is a Multidisciplinary Plan of Care that may contain components documented by all disciplines (PT, OT, and ST.) PT Problem 1 PT Problem #1 Knowledge Deficit PT Goal 1 Goal / Goal Update *indep with HEP 12-28-24 progress met goal Target Visit 13 PT Problem 2 PT Problem #2 Impaired Strength PT Goal 1 Goal / Goal Update increase strength of L LE to 4-/5, to improve mobility skills and safety 12-28-24 progress improved but goal not met continue towards goal Target Visit 13 PT Problem 3 PT Problem #3 Impaired Functional Mobility PT Goal 1 Goal / Goal Update improve functional mobility to decrease risk for falls: 1* Tinetti balance/gait score of 2428 2* 5 reps sit/stand with use of 1 UE in 18 seconds 3* 2 minute walking distance of 125' with cane 12-28-24 progress met goals 2,3; #1 improved to continue towards goal 1 Target Visit 13 OT Problem 1 OT Problem #1 Knowledge Deficit OT Goal 1 Goal / Goal Update Patient to be independent with instructed materials. ---OT POC UPDATE 12/25/24--- Met Target Visit 20 OT Problem 2 OT Problem #2 Impaired Strength OT Goal 1 Goal / Goal Update Increase strength of the left UE for ADLs as measured by: - improving left shoulder flexion to 70 degrees to be able to assist in getting himself dressed - improving left elbow flexion strength to be able to touch his chin/face with the left hand - improving left wrist flexion/extension strength to 3/5 for improved hand positioning during ADLs - improving left finger flexion strength to 3+/5 for improved genomics scientist on objects during ADLs. ---OT POC UPDATE 12/25/24--- - left shoulder flexion improved to 50 deg, continue to 70 deg - elbow flexion strength improved to 3/5, he continues to be unable to touch chin, progress to touching left hand to chin. - left wrist flexion/extension strength progressed with flexion, however not with extension, continue goal - left finger flexion strength improved to 2-/5, continue to 3+/5 for improved genomics scientist for ADLs Target Visit 20
--- NOTE | 2024-12-28 10:00 | PTOPPROG ---
Assessment and note entered by Breana Edwards, PT Assessment Status Progress ICD-10 Condition Codes (PT) Repeated falls R29.6,Difficulty Walking R26.2, Abnormalities of gait and mobility R26.9,Weakness R53.1 Other ICD-10 Condition Codes ( CVAI63.9; PT) Onset Nov 2023 Subjective Information walking is better, with the new tall walker; have been doing the leg exercises-- using the band and small ball for legs; see Dr Smart about TKR for L knee next week; stopped using the w/c in the house about 1 week ago; use the cane sometimes in the house; Assessment PT Clinical Summary Abrahan has received 7 PT sessions. He has improved in all areas: 2 minute walking time from 80' to 160' with the cane and with tall, upright wheeled walker 300'; gait pattern improved with step length pass other foot; 5 reps sit/stand time from 23 to 15 seconds; Tinetti balance from 17 to ; increase strength of L hip and knee; education for HEP and gait with assistive device. Next week, he has an appointment with Ortho dr about L TKR. Mobility is limited due to L knee pain and giving out. The goals were partially met. Continue PT to increase L hip and knee strength, to prep him for L TKR. Plan of Care Interventions Gait Training,Neuro Re-education,Patient/Caregiver Education,Therapeutic Activities,Therapeutic Exercise PT Services Indicated Yes Treatment Frequency and 1x/wk for 6 visits Duration These treatments will address the objective and functional deficits as defined above. The patient will be advanced safely and appropriately in order for the patient to progress towards his/her prior level of function. Additional exercises will be introduced and as well as a comprehensive home exercise program upon discharge, if needed, ?to ensure carryover of functional gains achieved in the clinic. This treatment plan has been reviewed and agreement upon by the patient.
--- NOTE | 2025-01-05 12:43 | PCPTNOTE ---
Pt. called and cancelled his PT appoointment for 01/04/25 due to being at a doctor's appointment and was not able to make it on time to therapy.
--- NOTE | 2025-01-29 09:38 | PTOPDC ---
Assessment and note entered by Breana Edwards, PT Assessment Status Discharge - Pt Not Present ICD-10 Condition Codes (PT) Repeated falls R29.6,Difficulty Walking R26.2, Abnormalities of gait and mobility R26.9,Weakness R53.1 Other ICD-10 Condition Codes ( CVAI63.9; PT) Onset Nov 2023 Subjective Information Abrahan called on 01-22-25 and canceled remaining PT appointments, due to going to Cardiac Rehab. Assessment PT Clinical Summary Abrahan has received 7 PT sessions. He then called on 01-22-25 and canceled remaining PT appointments, due to going to Cardiac Rehab. Discharge PT. The goals were not addressed. Plan of Care PT Services Indicated No
--- NOTE | 2025-01-29 12:43 | OTOPDC ---
Assessment and note entered by Jesse Montoya, OTR/L, CHT OT D/C 01/29/25 OT Clinical Summary Patient was attending OT s/p CVA. He called to cancel remaining appointments due to beginning cardiac rehab. D/C without formal reassessment and goal review. Thank you for this referral.
== END 2025-01-29 14:11 | disposition home or self-care (01) ==
LOC: ANHOT 12:15
PROVIDERS: PCP Family Medicine
DX: M67.922 Unspecified disorder of synovium and tendon, left upper arm (principal); M75.112 Incomplete rotator cuff tear or rupture of left shoulder, not specified as traumatic
CPT/HCPCS: 97110; 97112; 97116; 97161; 97165; 97530

== ENCOUNTER 2025-01-06 10:41 | Inpatient (IN) | payer MEDICARE, MEDICAID, SELFPAY ==
[2025-01-06] VITALS (22 sets, daily range): BP systolic 120–152; BP diastolic 62–97; PULSE 64–99; RESP 12–22; TEMP 36.3–36.6; O2SAT 93–100; BMI 26.9
--- NOTE | ~2025-01-06 | XR_ITS ---
CHEST RADIOGRAPH, PA AND LATERAL CLINICAL HISTORY: chest pain . COMPARISON: 10/10/2023 TECHNIQUE: PA and lateral views of the chest. FINDINGS Large hiatal hernia. Multiple surgical clips to the left of midline and at the level of the thoracic inlet. The remainder of the cardiomediastinal silhouette is otherwise unremarkable. The lungs are clear. IMPRESSION: No focal infiltrate or effusion. Large hiatal hernia redemonstrated. Reviewed, dictated and finalized at location A.
--- NOTE | ~2025-01-06 | US_ITS ---
EXAM: ABDOMEN ULTRASOUND HISTORY: epigastric pain COMPARISON: Reference is made to a CT examination of the abdomen and pelvis dated 07/31/2024 FINDINGS: LIVER: The liver demonstrates an anechoic avascular well-circumscribed structure with increased throu gh transmission in segment 4, unchanged from CT examination dated 07/31/2024, representing a simple c yst. The remainder of the liver is sonographically unremarkable. GALLBLADDER: No stones are identified within the gallbladder, which is otherwise unremarkable. No gallbladder wall thickening or pericholecystic fluid. BILE DUCTS: Common bile duct measures 4.4mm. PANCREAS: Limited evaluation of the pancreas secondary to overlying bowel gas IMPRESSION: Hepatic cyst. No additional abnormalities detected. Reviewed, dictated and finalized at location A.
--- OUTSIDE RECORDS SUMMARY | 2025-01-06 10:43 | XMS_ITS | Continuity of Care Document ---
Author Organization [facility] Address [address] [place] [address] Phone Care Team Providers Care Traffic Control Operator Name Role Phone Caio ADKINS, Jhonny Unavailable Unavailable Landon RN, Nguyen Unavailable Unavailable Procedures Procedure Date Voided Encounter Coronavirus AG [place] (Rapid Test) 20 Voided Encounter Advance Directives Directive Yes / No Effective Date File Name No Information Encounters Encounter Description Practice Location Reason(s) For Visit Diagnoses Date Provider Providers Copied on Encounter [facility] , [address], [place], [place], [id number], tel:[phone] [facility] No Information 0 Caio Barry. [address] [place] [address], [id number], . tel:[phone] Consulting Provider: Nguyen Navarrete, [address], [place], [address]. tel:[phone] [facility] , [address], [place], [place], [address], tel:[phone] [facility] No Information 0 No Information [facility] , [address], [place], [place], [id number], tel:[phone] [facility] Contact w and exposure to oth viral communicable diseases 0 Caio Barry. [address], [place], [place], [id number], . tel:[phone] [facility] , [address], [place], [place], [id number], tel:[phone] [facility] No Information 0 Mathew Wilkinson. [address], [place], [place], [id number], [place]. tel:[phone] Family History Family Member Type Diagnosis Age At Onset No Information Payers Payer name Insurance type Covered alliance party ID Authoriza tion(s) No Information Social History [...]
--- OUTSIDE RECORDS SUMMARY | 2025-01-06 10:43 | XMS_ITS | Continuity of Care Document ---
Author Organization [employer] Address [address] [place] [address] Phone Care Team Providers Care Child Protection Specialist Name Role Phone Grabiel SOLITARIO, Florentino Unavailable Unavailable Procedures Procedure Date Therapeutic Activities Neuromuscular Re-Ed Therapeutic Exercise Therapeutic Activities Neuromuscular Re-Ed Therapeutic Exercise Therapeutic Activities Therapeutic Exercise Neuromuscular Re-Ed Therapeutic Activities Neuromuscular Re-Ed Therapeutic Exercise Therapeutic Activities Neuromuscular Re-Ed Therapeutic Exercise Neuromuscular Re-Ed Therapeutic Activities Therapeutic Exercise Therapeutic Activities Neuromuscular Re-Ed Therapeutic Exercise Therapeutic Activities Neuromuscular Re-Ed Therapeutic Exercise Neuromuscular Re-Ed Therapeutic Exercise Therapeutic Activities Neuromuscular Re-Ed Therapeutic Exercise Manual Therapy Doc neg elder mal no plan Doc neg elder mal no plan PT Evaluation Moderate Complexity Therapeutic Activities Therapeutic Exercise Progress Note Therapeutic Exercise Neuromuscular Re-Ed Therapeutic Activities Therapeutic Activities Therapeutic Exercise Neuromuscular Re-Ed Hot or Cold Pack Therapeutic Activities Hot or Cold Pack Neuromuscular Re-Ed Electrical Stimulation Therapeutic Activities Neuromuscular Re-Ed Hot or Cold Pack Electrical Stimulation Therapeutic Activities Neuromuscular Re-Ed Therapeutic Exercise Hot or Cold Pack Progress Note Hot or Cold Pack Therapeutic Activities Therapeutic Exercise Neuromuscular Re-Ed Therapeutic Activities Neuromuscular Re-Ed Hot or Cold Pack Therapeutic Activities Therapeutic Exercise Neuromuscular Re-Ed Hot or Cold Pack Therapeutic Activities Neuromuscular Re-Ed Therapeutic Exercise Therapeutic Activities Neuromuscular Re-Ed Therapeutic Exercise Therapeutic Exercise Therapeutic Activities Neuromuscular Re-Ed Hot or Cold Pack Manual Therapy Neuromuscular Re-Ed Hot or Cold Pack Therapeutic Exercise Manual Therapy Progress Note Neuromuscular Re-Ed Therapeutic Exercise Hot or Cold Pack Neuromuscular Re-Ed Therapeutic Exercise Therapeutic Activities Therapeutic Activities Neuromuscular Re-Ed Hot or Cold Pack Manual Therapy Therapeutic Exercise Therapeutic Exercise Therapeutic Activities Neuromuscular Re-Ed Manual Therapy Hot or Cold Pack Neuromuscular Re-Ed Hot or Cold Pack Therapeutic Exercise Manual Therapy Therapeutic Activities Neuromuscular Re-Ed Manual Therapy Therapeutic Exercise Therapeutic Exercise Neuromuscular Re-Ed Manual Therapy Electrical Stimulation Hot or Cold Pack Therapeutic Activities Neuromuscular Re-Ed Therapeutic Exercise Electrical Stimulation Manual Therapy Hot or Cold Pack Progress Note Therapeutic Activities Manual Therapy Neuromuscular Re-Ed Therapeutic Exercise Neuromuscular Re-Ed Hot or Cold Pack Therapeutic Exercise Therapeutic Activities Hot or Cold Pack Therapeutic Exercise Neuromuscular Re-Ed Hot or Cold Pack Therapeutic Activities Electrical Stimulation Therapeutic Exercise Neuromuscular Re-Ed Neuromuscular Re-Ed Therapeutic Exercise Therapeutic Activities Hot or Cold Pack PT Re-evaluation Therapeutic Activities Therapeutic Exercise Hot or Cold Pack Neuromuscular Re-Ed Therapeutic Activities Neuromuscular Re-Ed Therapeutic Exercise Neuromuscular Re-Ed Therapeutic Exercise Therapeutic Activities Neuromuscular Re-Ed Progress Note Therapeutic Activities Therapeutic Exercise Therapeutic Activities Neuromuscular Re-Ed Therapeutic Exercise Therapeutic Activities Neuromuscular Re-Ed Therapeutic Exercise Neuromuscular Re-Ed Therapeutic Exercise PT Evaluation Low Complexity Therapeutic Activities Therapeutic Exercise Manual Therapy Therapeutic [...] Diagnoses Date Provider Providers Copied on Encounter [facility] [address] [place] [address], [place], [place], [id number], tel:[phone] [place] No Information 2 Grabiel Florentino. . Referring Provider: George Cardenas, [address], [place], [address]. tel:[phone] [facility] [address], [place], [place], [address], tel:[phone] [place] No Information 2 Grabiel Florentino. . Referring Provider: George Cardenas, [address], [place], [address]. tel:[phone] [facility] [address], [place], [place], [address], [place] tel:[phone] [place] No Information 2 Grabiel Florentino. . Referring Provider: George Cardenas, [address], [place], [address]. tel:[phone] [facility], [place], [place], [address], [place] tel:[phone] [place] No Information 2 Grabiel Florentino. . Referring Provider: George Cardenas, [address], [place], [address]. tel:[phone] [facility], [place], [place], [address], [place] tel:[phone] [place] No Information 2 Grabiel Florentino. . Referring Provider: George Cardenas, [address], [place], [address]. tel:[phone] [facility], [place], [place], [address], [place] tel:[phone] [place] No Information 2 Grabiel Florentino. . Referring Provider: George Cardenas, [address], [place], [address]. tel:[phone] [facility], [place], [place], [address], [place] tel:[phone] [place] No Information 2 Grabiel Florentino. . Referring Provider: George Cardenas, [address], [place], [address]. tel:[phone] [facility], [place], [place], [address], [place] tel:[phone] [place] No Information 2 Grabiel Florentino. . Referring Provider: George Cardenas, [address], [place], [address]. tel:[phone] [facility], [place], [place], [address], [place] tel:[phone] [place] No Information 2 Grabiel Florentino. . Referring Provider: George Cardenas, [address], [place], [address]. tel:[phone] [facility], [place], [place], [address], [place] tel:[phone] [place] No Information 2 Grabiel Good. . Referring Provider: George Cardenas, [address], [place], [address]. tel:[phone] [facility], [address], [place], [place], [address], [place] tel:[phone] [place] No Information 2 Grabiel Good. . Referring Provider: George Sepulveda S, [address], [facility] [place], [address]. tel:[phone] [facility], [facility] [address], [place], [place], [address], [place] tel:[phone] [place] No Information 2 Clarita Pizano. [address] [place] [address], [address], [place], [place], [facility], . tel:[phone] Referring Provider: Carol Aceves, [address] [place] [address] Suite [facility], [place], [address]. tel:[phone] [place], [place] [address], [place], [place], [address], [place] tel:[phone] [place] No Information 2 Clarita Pizano. [address] [place] [address], [address], [place], [facility], [place]. tel:[phone] Referring Provider: Carol Aceves, [address] [place] [address] Suite [facility], [place], [address]. tel:[phone] [facility] [address] [facility] [address], [place], [place], [address], [place] tel:[phone] [place] No Information 2 Denisa Casas . Referring Provider: Carol Aceves, [address] [facility] Suite [facility], [place], [address]. tel:[phone] [facility] [address], [place], [place], [address], [place] tel:[phone] [place] No Information 2 Denisa Parada. . Referring Provider: Carol Aceves, [address] [place] [address] Suite [facility], [place], [facility]. tel:[phone] [place] [address], [place], [place], [address], tel:[phone] [place] No Information 0 2 Denisa Parada. . Referring Provider: Carol Aceves, [address] [place] [address], [place], [facility]. tel:[phone] [place] [address], [place], [place], [address], tel:[phone] [place] No Information 0 2 Muehl Harinder. [address] [place] [address], [address], [place], [facility], . tel:[phone] Referring Provider: Carol Aceves, [address] [place] [address], [place], [facility]. tel:[phone] [place] [address], [place], [address], tel:[phone] [place] No Information February- 2 Muehl Harinder. [address] [place] [address], [address], [place], [facility], . tel:[phone] Referring Provider: Carol Aceves, [address] [place] [address], [place], [facility]. tel:[phone] [place] [address], [place], [place], [address], tel:[phone] [place] No Information 2 Muehl Harinder. [address] [place] [address], [address], [place], [facility], . tel:[phone] Referring Provider: Carol Aceves, [address] [place] [address] Suite [facility], [place], [facility]. tel:[phone] [place] [address], [place], [place], [address], tel:[phone] [place] No Information 2 Muehl Harinder. [address] [place] [address], [address], [place], [facility], . tel:[phone] Referring Provider: Carol Aceves, [address] [place] [address] Suite [facility], [place], [facility]. tel:[phone] [address], [place], [place], [address], tel:[phone] [place] No Information 2 Essner Tal. . Referring Provider: Carol Aceves [address] [place] [address] Suite [facility], [place], [facility]. tel:[phone] [address] [address], [place], [place], [address], tel:[phone] [place] No Information 2 Muehl Harinder. [address] [place] [address], [address], [place], [facility], . tel:[phone] Referring Provider: Carol Aceves, [address] [place] [address] Suite [facility], [place], [facility]. tel:[phone] [address], [place], [place], [address], tel:[phone] [place] No Information 0 2 Muehl Harinder. [address] [place] [address], [address], [place], [facility], . tel:[phone] Referring Provider: Carol Aceves, [address] [facility] Suite [facility], [place], [address]. tel:[phone], [id number], tel:[phone] [place] No Information 2 Muehl Harinder. [address] [place] [address], [address], [place], [facility], . tel:[phone] Referring Provider: Carol Aceves, [address] [place] [address], [place], [address]. tel:[phone] [place] [address], [address] [facility] 300, [place], [place], [address], [place] tel:[phone] [place] No Information 2 Modglin Tre. . Referring Provider: Carol Aceves, [address] [place] [address], [place], [address]. tel:[phone] [place] [address], [address] [facility] [address], [place], [place], [address], [place] tel:[phone] [place] No Information 2 Niederhoffer Fernanda. . Referring Provider: Carol Aceves, [address] [place] [address], [place], [address]. tel:[phone] [place] [address], [address] [place] [address], [place], [place], [address], [place] tel:[phone] [place] No Information 2 Niederhoffer Fernanda. . Referring Provider: Carol Aceves, [address] [place] [address], [place], [address]. tel:[phone] [facility] [address] [address], [place], [place], [address], [place] tel:[phone] [place] No Information 2 Niederhoffer Fernanda. . Referring Provider: Carol Aceves, [address] [place] [address], [place], [address]. tel:[phone] [facility] [address] [place] [address] [address], [place], [address], [place] tel:[phone] [place] No Information 0 2 Yuval Foote. [address] [place] [address], [address], [place], [facility], [place]. tel:[phone] Referring Provider: Carol Aceves, [address] [place] [address], [place], [address]. tel:[phone] [place] [address], [address] [place] [address] [address], [place], [place], [address], tel:[phone] [place] No Information Apr-0 4-202 2 Muehl Harinder. [address] [place] [address], [address], [place], [facility], . tel:[phone] Referring Provider: Carol Aceves, [address] [place] [address] Suite [facility], [place], [facility]. tel:[id number] [place] [address] [address], [place], [place], [address], tel:[phone] [place] No Information Mar-3 0-202 2 Muehl Harinder. [address] [place] [address], [address], [place], [facility], . tel:[phone] Referring Provider: Carol Aceves, [address] [place] [address] Suite [facility], [place], [facility]. tel:[id number] [place] [address], [id number], tel:[phone] [place] No Information Mar-2 8-202 2 Muehl Harinder. [address] [place] [address], [address], [place], [facility], . tel:[phone] Referring Provider: Carol Aceves, [address] [place] [address] Suite [facility], [place], [facility]. tel:[id number] [place] [address], [id number], tel:[phone] [place] No Information Mar-2 4-202 2 Muehl Harinder. [address] [place] [address], [address], [place], [facility], . tel:[phone] Referring Provider: Carol Aceves, [address] [place] [address] [place] [address], [facility]. tel:[phone], [address], tel:[phone] [place] No Information Mar-2 2-202 2 Muehl Harinder. [address] [place] [address], [address], [place], [facility], [place]. tel:[phone] Referring Provider: Carlo Aceves, [address] [facility] Suite [facility], [place], [address]. tel:[phone] [facility], [address] [place] [address] [address], [place], [place], [address], [place] tel:[phone] [place] No Information Mar-1 2 Muehl Harinder. [address] [place] [address], [address], [place], [facility], [place]. tel:[phone] Referring Provider: Carol Aceves, [address] [facility] Suite [facility], [place], [address]. tel:[phone] [address], [place], [place], [address], tel:[phone] [place] No Information Mar-1 2 Muehl Harinder. [address] [place] [address], [address], [place], [facility], [place]. tel:[phone] Referring Provider: Carol Aceves, [address] [facility] Suite [facility], [place], [address]. tel:[phone] [address] [address], [place], [place], [address], [place] tel:[phone] [place] No Information Mar-1 - 2 Muehl Harinder. [address] [place] [address], [address], [place], [facility], [place]. tel:[phone] Referring Provider: Carol Aceves, [address] [facility] Suite [facility], [place], [address]. tel:[phone] [address] [address], [place], [place], [address], tel:[phone] [facility] No Information Mar-0 4-202 2 Tom Amezcua. . Referring Provider: George Sepulveda S, [address], [place], [address]. tel:[phone] [facility], [place], [place], [address], [place] tel:[phone] [facility] No Information 0 2 Makler Luke. . Referring Provider: George Cardenas, [address], [place], [address]. tel:[phone] [facility], [place], [place], [address], [place] tel:[phone] [facility] No Information b-2 2 Makler Luke. . Referring Provider: George Cardenas, [address], [place], [address]. tel:[phone] [facility], [place], [place], [address], [place] tel:[phone] [facility] No Information Nov- 2 Makler Luke. . Referring Provider: George Cardenas, [address], [place], [address]. tel:[phone] [facility], [place], [place], [address], [place] tel:[phone] [facility] No Information Nov- 2 Makler Luke. . Referring Provider: George Cardenas, [address], [place], [address]. tel:[phone] [facility], [place], [address], [place] tel:[phone] [facility] No Information Nov- 2 Makler Luke. . Referring Provider: George Cardenas, [address], [place], [address]. tel:[phone] [facility], [place], [place], [address], [place] tel:[phone] [place] Pain in right kneeEffusion, right kneeMuscle weakness (generalized) Stiffness of right knee, not elsewhere classifiedUns pecified abnormalities of gait and mobility Feb-1 9-201 9 Muehl Harinder. [address] [place] [address], [address], [place], [facility], . tel:[phone] Referring Provider: Jossie Montalvo, [address] [facility] 301, [place], [address]. tel:[phone] [address], [place], [place], [address], [place] tel:[phone] [place] Pain in right kneeEffusion, right kneeMuscle weakness (generalized) Stiffness of right knee, not elsewhere classifiedUns pecified abnormalities of gait and mobility Feb-1 5-201 9 Muehl Harinder. [address] [place] [address], [place] [address], [place], [facility], [place]. tel:[phone] Referring Provider: Jossie Montalvo, [address] [facility] [address], [place], [address]. tel:[phone] [facility] [address], [place], [place], [address], [place] tel:[phone] [place] Pain in right kneeEffusion, right kneeMuscle weakness (generalized) Stiffness of right knee, not elsewhere classifiedUns pecified abnormalities of gait and mobility Feb-1 2-201 9 Threlkeld Jacquie. . Referring Provider: Jossie Montalvo, [address] [address], [place], [address]. tel:[phone] [facility] [address], [place], [place], [address], [place] tel:[phone] [place] Pain in right kneeEffusion, right kneeMuscle weakness (generalized) Stiffness of right knee, not elsewhere classifiedUns pecified abnormalities of gait and mobility Feb-0 7-201 9 Muehl Harinder. [address] [place] [address], [address], [place], [facility], [place]. tel:[phone] Referring Provider: Jossie Montalvo, [address] [address], [place], [address]. tel:[phone] [facility] [address], [place], [place], [address], [place] tel:[phone] [place] Pain in right kneeEffusion, right kneeMuscle weakness (generalized) Stiffness of right knee, not elsewhere classifiedUns pecified abnormalities of gait and mobility 0 9 Muehl Harinder. [address] [facility], [address], [place], [address], [place]. tel:[phone] Referring Provider: Jossie Montalvo, [address] [address], [place], [address]. tel:[phone] [facility] [address] [facility] [address], [place], [place], [address], [place] tel:[phone] [place] Pain in right kneeEffusion, right kneeMuscle weakness (generalized) Stiffness of right knee, not elsewhere classifiedUns pecified abnormalities of gait and mobility 9 Muehl Harinder. [address] [place] [address], [address], [address], [place]. tel:[phone] Referring Provider: Jossie Montalvo, [address] [address], [place], [address]. tel:[phone] [facility] [address] [facility], [place], [place], [address], [place] tel:[phone] [place] Pain in right kneeEffusion, right kneeMuscle weakness (generalized) Stiffness of right knee, not elsewhere classifiedUns pecified abnormalities of gait and mobility 9 Muehl Harinder. [address] [facility], [address], [place], [address], [place]. tel:[phone] Referring Provider: Jossie Montalvo, [address] [address], [place], [address]. tel:[phone] [facility] [facility] [address], [place], [address], [place] tel:[phone] [place] Pain in right kneeEffusion, right kneeMuscle weakness (generalized) Stiffness of right knee, not elsewhere classifiedUns pecified abnormalities of gait and mobility 9 Muehl Harinder. [address] [facility], [address], [place], [facility], [place]. tel:[phone] Referring Provider: Jossie Montalvo, [address] [facility] [address], [place], [address]. tel:[phone] [address], [place], [place], [address], tel:[phone] [place] Pain in right kneeEffusion, right kneeMuscle weakness (generalized) Stiffness of right knee, not elsewhere classifiedUns pecified abnormalities of gait and mobility Sep- 8 Muehl Harinder. [address] [facility], [facility] [address], [place], [address], [place]. tel:[phone] Referring Provider: Jossie Montalvo, [address] [facility] [address], [place], [address]. tel:[phone] [facility] [address], [place], [place], [address], [place] tel:[phone] [place] Pain in right kneeEffusion, right kneeMuscle weakness (generalized) Stiffness of right knee, not elsewhere classifiedUns pecified abnormalities of gait and mobility Sep- 8 Maddie Chavez . Referring Provider: Jossie Montalvo, [address] [facility] [address], [place], [address]. tel:[phone] [facility] [address] [facility], [place], [address], [place] tel:[phone] [place] Pain in right kneeEffusion, right kneeMuscle weakness (generalized) Stiffness of right knee, not elsewhere classifiedUns pecified abnormalities of gait and mobility Sep-2 8 Muehl Harinder. [address] [facility], [address], [place], [address], [place]. tel:[phone] Referring Provider: Jossie Montalvo, [address] [facility] [address], [place], [address]. tel:[phone] [facility], [address] [facility], [place], [address], [place] tel:[phone] [place] Pain in right kneeEffusion, right kneeMuscle weakness (generalized) Stiffness of right knee, not elsewhere classifiedUns pecified abnormalities of gait and mobility 0201 8 Clarita Pizano. [address] [facility], [address], [place], [address], [place]. tel:[phone] Referring Provider: Jossie Montalvo [address], [place], [address]. tel:[phone] Family History Family Member Type Diagnosis Age At Onset No Information Payers Payer name Insurance type Covered democrat ID Katarzyna johnson(s) [facility] [id number] [facility] [id number] Social History Type Description Quantity Date Captured [...]
--- OUTSIDE RECORDS SUMMARY | 2025-01-06 10:43 | XMS_ITS | Clinical Summary ---
Author Organization [facility] Address [address] [place] [address] Care Team Providers Care Philosophy Faculty Name Role Phone Wolfgang Serrano MD Primary Care Provider Wolfgang Serrano MD Unavailable Unknown, Notinfile Unavailable Unavailable Santino Funk MD Unavailable Chuy Enriquez MD Unavailable [phone] Luis Felipe Cedillo MD Unavailable Marlene Thornton MD Unavailable Allergies No known active allergies Medications cholecalciferol (VITAMIN D-3) 2000 unit capsule Take 1 capsule (2,000 Units total) by mouth daily 30 capsule 3 0 Active Additional Information Patient taking differently:2,000 Units oralNightly, Reported on 10/17/2024 tamsulosin (FLOMAX) 0.4 mg extended release capsule Take 1 capsule (0.4 mg total) by mouth nightly 0 Active turmeric root extract 500 mg capsule Take 1,000 mg by mouth nightly Active levothyroxine (SYNTHROID) 150 mcg tablet Take 1 tablet (150 mcg total) by mouth daily 1 Active capsaicin 0.1 % creamIndication s:Neuropathic Pain Apply to your feet three to four times a day. 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) Take 1 tablet by mouth nightly 30 tablet 3 Active tiZANidine (ZANAFLEX) 2 mg tabletIndicatio ns:Muscle cramps TAKE 1 TABLET BY MOUTH EVERY 8 HOURS NEEDED FOR MUSCLE SPASM 60 tablet 3 Active Additional Information Patient taking differently: 2 mg oral Nightly, Reported on 08/29/2024 melatonin 10 mg tablet Take 1 tablet (10 mg total) by mouth nightly Active Advair HFA 230-21 mcg/actuation inhaler Inhale 2 puffs 2 (two) times a day 4 Active Flovent HFA 44 mcg/actuation inhaler 3 Active gabapentin (NEURONTIN) 300 mg capsule Take 2 capsules (600 mg total) by mouth 3 (three) times a day 4 Active magnesium oxide/magnesium (MAGNESIUM, OXIDE/AA CHELATE, ORAL)Indication s:magnesium supplement Take 250 mg by mouth daily. Indications: magnesium supplement Active cyanocobalamin (Vitamin B-12) 1,000 mcg tabletIndicatio ns:Prevention of Vitamin B12 Deficiency Take 1 tablet (1,000 mcg total) by mouth daily Active multivit-min/fe rrous fumarate (MULTI VITAMIN ORAL)Indication s:multi-vitamin support Take 1 tablet by mouth daily. Indications: multi-vitamin support Active senna-docusate (PERICOLACE) 8.6-50 mgIndications:c onstipation Take 2 tablets by mouth daily as needed for constipation Active triamcinolone (KENALOG) 0.1 % ointment Apply topically 2 (two) times a day as needed (Rash) 60 g 2 4 Active vibegron (Gemtesa) 75 mg tablet Take 75 mg by mouth Active furosemide (LASIX) 20 mg tablet Take 1 tablet (20 mg total) by mouth daily 4 Active spironolactone (ALDACTONE) 25 mg tablet Take 1 tablet (25 mg total) by mouth daily Active aspirin 81 mg enteric coated tablet Take 1 tablet (81 mg total) by mouth daily Active rosuvastatin (CRESTOR) 40 mg tablet Take 1 tablet (40 mg total) by mouth daily Patient states he doesn't think he takes anything for his cholesterol Active pravastatin (PRAVACHOL) 10 mg tablet Take 1 tablet (10 mg total) by mouth daily Patient states he doesn't think he takes anything for his cholesterol Active pantoprazole DR (PROTONIX) 40 mg EC tablet Take 1 tablet (40 mg total) by mouth daily Active mupirocin (BACTROBAN) 2 % ointment APPLY OINTMENT TOPICALLY TO AFFECTED AREA TWICE DAILY FOR 10 DAYS 4 Active permethrin (ELIMITE) 5 % cream APPLY CREAM TOPICALLY TO AFFECTED AREA FROM THE NECK DOWN AND WASH OFF IN 12 HOURS AND REPEAT IN ONE WEEK 4 Active Myrbetriq 25 mg tablet extended release 24 hr Take 1 tablet (25 mg total) by mouth daily 4 Active calcium carbonate (TUMS) 500 mg (200 mg elemental calcium) chewable tablet Take 1 tablet/chew tab (500 mg total) by mouth daily Active acetaminophen (TYLENOL) 325 mg tablet Take 2 tablets (650 mg total) by mouth every 6 (six) hours as needed for pain Active diphenhydrAMINE 25 mg capsule Take 1 tablet/capsule (25 mg total) by mouth every 6 (six) hours as needed for itching Active guaiFENesin (ROBITUSSIN) syrup 100 mg/5 mL Take by mouth 3 (three) times a day as needed for cough Active oxyBUTYnin XL (DITROPAN XL) 15 mg 24 hr tablet Take 1 tablet (15 mg total) by mouth nightly Active clobetasoL (TEMOVATE) 0.05 % ointment Apply topically 2 (two) times a day as needed (Rash) Avoid face/groin 60 g 2 5 Active cetirizine (ZyrTEC) 10 mg tablet Take 1 tablet (10 mg total) by mouth daily 90 tablet 3 5 Active Active Problems Problem Noted Date Diagnosed Date Primary osteoarthritis of left knee 06/22/2024 Assessment & Plan (10/05/2024 9:45 AM HOME HEALTH CLINICIAN): The patient has advanced arthritis of the [...] as late effect of cerebrovascular accident (CVA) 03/21/2024 Arthritis of left knee 12/29/2023 Assessment [...] 2025 Assessment & Plan (11/18/2023 2:34 PM HOME HEALTH CLINICIAN): RLL nodule in a patient without clear [...] maintenance/vaccinations Assessment & Plan (11/18/2023 2:34 PM HOME HEALTH CLINICIAN): Related to hiatal hernia, reflux Sx are [...] (12/05/2019): Added automatically from request for surgery [id number] Subchondral insufficiency fracture of condyle of left [...] Encounters Date Type Department Care Team Description 11/03/2024 Telephone [facility] [address] [place] [address] Hesham Lamb PA Medication not helping, sooner appt 10/24/2024 3:15 PM HOME HEALTH CLINICIAN Office Visit [facility] [address] [place] [address] Hesham Lamb PA Atopic dermatitis, unspecified type (Primary Dx); Pruritus 10/20/2024 Documentation [facility] Pre Anesthesia Testing [address] [place] [address] Madie Trujillo RN 10/17/2024 10:45 AM HOME HEALTH CLINICIAN Pre-Admission Testing [facility] Pre Anesthesia Testing [address] [place] [address] Pre-op testing (Primary Dx) 10/13/2024 11:59 PM HOME HEALTH CLINICIAN Anesthesia Event [facility] Operating Room [address] [place] [address] Kavitha Ramirez NP 10/12/2024 Telephone [facility] at [facility] [address] [place] [address] [address] [place] [address] Grey Dykes MD 10/09/2024 Telephone [facility] [address] [place] [address] Jenni Eddy RN Unsuccessful Phone Call 1; GI Preprocedure from Last 3 Months Immunizations Immunization Administration Dates Next Due Influenza, Quadrivalent, Berenice [...] hx of double vision, corrective lenses Seizures (HCC) 1997 last seizure in 1997 Asthma Cataract SOB (shortness of breath) on exertion Subchondral insufficiency fr acture of condyle of left femur (HCC) Closed fracture of left tibi al plateau [...] knee as current injury Vertigo Alzheimer's dementia (HCC) Diverticulitis of colon Incontinence of urine Hypothyroidism Fatigue Vision changes Easy bruisability Frequent urination Back pain Muscle weakness Cramps of lower extremity Clotting disorder Hyperlipidemia Hypertension Enlarged prostate Stroke (HCC) 12/09/2023 left leg works o k, cannot use left arm Dependence on cane Eczema of lower leg rash, Dr Mili aguilar's office aware per patient Dysphagia stroke 11/2023 Family History Medical History Relation Name Comments [...] materials from doctor or pharmacy Sometimes 03/08/2024 [facility] Utilities Answer Date Recorded In the past 12 months has e [employer], gas, oil, or water [employer] threatened to shut off services in your [...] any clubs o r organizations such as zoroastrianism groups, unions, fraternal or athletic groups, or school groups? No 12/16/2023 How often do you attend meet ings of the clubs or organizations you belong to? Never 12/16/2023 Are you , , di vorced, , never , or living with a partner? 12/16/2023 AUDIT-C Answer Date Recorded Q1: How often do you have a drink containing alc ohol? Monthly or less 10/17/2024 Q2: How many drinks containi ng alcohol do you have on a typical day when you are drinking? 1 or 2 10/17/2024 Q3: How often do you have si x or more drinks on one occasion? Never 10/17/2024 Overall Financial Resource Strain (CARDIA) Answe r Date Recorded How hard is it for you to pa y for the very basics like food, housing, medical care, and heating? Not hard at all 12/16/2023 PHQ-2 Answer Date Recorded Patient Health Questionnaire-2 Score 0 01/06/2024 [facility] - Occupational [...] in a retirement (including now)? No 12/16/2023 PHQ-9 Answer Date Recorded Patient Health Questionnaire-9 Score 0 01/06/2024 Personal Safety Answer Date Recorded Have you ever been in or are you currently in a harmful physical or emotional relationship or is someone making you feel afraid or unsafe? Denies 12/15/2023 Sex and Gender Information Value Date Recorded Sex Assigned at Not on file Legal Sex Male 3:25 PM HOME HEALTH CLINICIAN Gender Identity Not on file Sexual Orientation Not on file Obstetrics History Last Filed Vital Signs Vital Sign Reading Time Taken Comments Blood Pressure 125/81 10/17/2024 11:19 AM HOME HEALTH CLINICIAN Pulse 72 10/17/2024 11:19 AM HOME HEALTH CLINICIAN Temperature 36.1 C (96.9 F) 10/17/2024 11:19 AM HOME HEALTH CLINICIAN Respiratory Rate 16 10/17/2024 11:19 AM HOME HEALTH CLINICIAN Oxygen Saturation 99% 10/17/2024 11:19 AM HOME HEALTH CLINICIAN Inhaled Oxygen Concentration - - Weight 85.3 kg (188 lb) 10/05/2024 9:24 AM HOME HEALTH CLINICIAN Height 177.8 cm (5' 10 ) 10/05/2024 9:24 AM HOME HEALTH CLINICIAN Body Mass Index 26.98 10/05/2024 9:24 AM HOME HEALTH CLINICIAN Plan of Treatment Scheduled Procedures Name Priority Associated Diagnoses Date/Ti me ESOPHAGOGASTRODUODENOSCOPY Dysphagia, unspecified type Health Maintenance Due [...] 12/07/2023, Additional history exists Fall Risk Assessment 10/17/2025 10/17/2024, 12/03/2022, 11/05/2022 Abdominal Aortic Aneurysm (A AA) Screen Completed 11/12/2023, 11/12/2023, 10/11/2023 Medical Devices Implanted Type Area Bus Repair Supervisor Device Identifier Shelf Expiration Date Model / Serial / Lot [employer] 201.050 Nif - [id number] Implanted:Qty: 1 on 09/22/2018 by George Sepulveda MD at [facility] al: Knee [employer] 04/09/2020 201.050 / / [id number] Subchondroplasty Knee Kit Implanted:Qty: 1 on 09/22/2018 by George Sepulveda MD at [facility] al: Knee [employer] 11/10/2020 402.203(201.0 50) / [id number] / [id number] Description:KIT CONTAINS IMP LANT: ACCUFILL, 5ML, REF# 201.050, LOT # [id number], EX: 11-10-2020 System Accumix Bone Cement - [id number] Implanted:Qty: 1 on 09/22/2018 by George Sepulveda MD at [facility] [employer] 03/28/2021 311.100 / / [id number] [employer] [id number] Palacos R+G High Viscosity Cement Bone Gentamicin Arthroplasty - [id number] Implanted:Qty: 1 on 11/24/2021 by George Sepulveda MD at [facility] Right: Knee [employer] 05/10/2024 [id number] / / [id number] [employer] [id number] Persona Cruciate Retain Knee Right 11 Narrow Component Femoral - [id number] Implanted:Qty: 1 on 11/24/2021 by George Sepulveda MD at [facility] Right: Knee [employer] 07/13/2030 [id number] / / [id number] [employer] [id number] Persona 35mm Knee Component Patellar All Poly Latex Free - [id number] Implanted:Qty: 1 on 11/24/2021 by George Sepulveda MD at [facility] Right: Knee [employer] 03/25/2029 [id number] / / [id number] [employer] [id number] Persona 14mm 30+ Mm Knee Tibia Taper Extension Stem - [id number] Implanted:Qty: 1 on 11/24/2021 by George Sepulveda MD at [facility] Right: Knee [employer] 07/27/2031 [id number] / / [id number] [employer] [id number] Persona Natural Tibia Stem Knee Right 5d G Baseplate Tibial - [id number] Implanted:Qty: 1 on 11/24/2021 by George Sepulveda MD at [facility] Right: Knee [employer] 05/13/2031 [id number] / / [id number] [employer] [id number] Persona 10mm Knee Insert Articular Vivacit-E Sterile - [id number] Implanted:Qty: 1 on 11/24/2021 by George Sepulveda MD at [facility] Right: Knee [employer] 05/06/2026 [id number] / / [id number] Procedures Procedure Name Priority Date/Time Associated Diagnosis Comments EGFR Routine 10/17/2024 11:29 AM HOME HEALTH CLINICIAN Pre-op testing DIFFERENTIAL AUTO Routine 10/17/2024 11: 29 AM HOME HEALTH CLINICIAN Pre-op testing BASIC METABOLIC PANEL Routine 10/17/2024 11:29 AM HOME HEALTH CLINICIAN Pre-op testing CBC WITH AUTO DIFFERENTIAL Routine 10/17/2024 11:29 AM HOME HEALTH CLINICIAN Pre-op testing TYPE AND SCREEN Routine 10/17/2024 11:29 AM HOME HEALTH CLINICIAN Pre-op testing CT CHEST ABDOMEN PELVIS W CONTRAST ED Urgent/IP Urgent 10/11/2023 10:12 AM HOME HEALTH CLINICIAN from Last 3 Months or Most Recently Relevant to Health Maintenance Results * (ABNORMAL) eGFR (10/17/2024 11:29 AM HOME HEALTH CLINICIAN) eGFR 52(L) >=60 mL/min/1. 73 m2 Comment: Interpretive Data Reference Interval Normal >/= 90 mL/min/1.73m2 Mildly decreased* 60 - 89 mL/min/1.73m2 Mildly to moderately decreased 45 - 59 mL/min/1.73m2 Moderately to severely decreased 30 - 44 mL/min/1.73m2 Severely decreased 15 - 29 mL/min/1.73m2 Kidney Failure < 15 mL/min/1.73m2 *Relative to young adult level Estimated glomerular [...] interpretive data was last reviewed 2021. Blood 10/17/2024 11:2 9 AM HOME HEALTH CLINICIAN 10/17/2024 11:35 AM HOME HEALTH CLINICIAN us Kavitha Ramirez NP LAB BLOOD ORDERABLES Final Res ult [facility] [address] [place] [address] * (ABNORMAL) Differential, auto (10/17/2024 11:29 AM HOME HEALTH CLINICIAN) Neutrophil abs 4.9 1.5 - 6.5 K/cumm Imm gran abs 0.0 0.0 - 0.1 K/cumm [facility] Lymphocyte abs 1.6 0.8 - 3.3 K/cumm [facility] Monocyte abs 0.6 0.2 - 0.8 K/cumm [facility] Eosinophil abs 0.7(H) 0.0 - 0.5 K/cumm [facility] Basophil abs 0.0 0.0 - 0.1 K/cumm [facility] Neutrophil pct 61.7 % [facility] Comment: Interpretive Data Percent cell count reference ranges are not reported, since discordance with absolute values may lead to misinterpretation of CBC data. Current Interpretive Data was last revised on 2018. Imm gran pct 0.3 % [facility] Comment: Interpretive Data Percent cell count reference ranges are not reported, since discordance with absolute values may lead to misinterpretation of CBC data. Current Interpretive Data was last revised on 2018. Lymphocyte pct 20.6 % [facility] Comment: Interpretive Data Percent cell count reference ranges are not reported, since discordance with absolute values may lead to misinterpretation of CBC data. Current Interpretive Data was last revised on 2018. Monocyte pct 8.2 % [facility] Comment: Interpretive Data Percent cell count reference ranges are not reported, since discordance with absolute values may lead to misinterpretation of CBC data. Current Interpretive Data was last revised on 2018. Eosinophil pct 8.8 % [facility] Comment: Interpretive Data Percent cell count reference ranges are not reported, since discordance with absolute values may lead to misinterpretation of CBC data. Current Interpretive Data was last revised on 2018. Basophil pct 0.4 % [facility] Comment: Interpretive Data Percent cell count reference ranges are not reported, since discordance with absolute values may lead to misinterpretation of CBC data. Current Interpretive Data was last revised on 2018. Blood 10/17/2024 11:2 9 AM HOME HEALTH CLINICIAN 10/17/2024 11:34 AM HOME HEALTH CLINICIAN us Kavitha Ramirez TOASTER OPERATOR LAB BLOOD ORDERABLES Final Res ult [facility] [address] [place] [address] * (ABNORMAL) CBC with auto differential (10/17/2024 11:29 AM HOME HEALTH CLINICIAN) WBC 7.9 3.8 - 9.9 K/cumm Hgb 9.1(L) 13.0 - 17.5 g/dL [facility] Hct 30.1(L) 38.9 - 50.3 % [facility] Plt 279 150 - 400 K/cumm [facility] MPV 10.9 9.1 - 12.3 fL [facility] RBC 3.29(L) 4.30 - 5.80 M/cumm [facility] MCV 91.5 81.3 - 96.4 fL [facility] MCH 27.7 27.1 - 33.3 pg [facility] MCHC 30.2(L) 32.3 - 35.7 g/dL [facility] RDW CV 16.8(H) 11.1 - 14.9 % [facility] RDW SD 56.8(H) 35.7 - 48.1 fL [facility] NRBC abs 0.00 0.00 - 0.01 K/cumm [facility] Blood 10/17/2024 11:2 9 AM HOME HEALTH CLINICIAN 10/17/2024 11:34 AM HOME HEALTH CLINICIAN Kavitha Ramirez NP LAB BLOOD ORDERABLES Final Res ult Performing Organization Address [facility] de Phone Number MARV[facility] [address] [place] [address] * Type and screen (10/17/2024 11:29 AM HOME HEALTH CLINICIAN) Pathologist [facility] Sarah, indirect Negative ABO Rh O Negative [facility] Blood 10/17/2024 11:2 9 AM HOME HEALTH CLINICIAN 10/17/2024 11:37 AM HOME HEALTH CLINICIAN Narrative [facility] - 10/17/2024 3:48 PM HOME HEALTH CLINICIAN Is this test being ordered in advance for a procedure?->Yes Expected date of procedure:->10/23/24 Has the patient been transfused in the past 3 months?->Unknown Kavitha Ramirez NP LAB BLOOD BANK TEST ORDERABLES Final Result Performing Organization Address [facility] de Phone Number MARVIN [address] [facility] [place] [address] * (ABNORMAL) Basic metabolic panel (10/17/2024 11:29 AM HOME HEALTH CLINICIAN) Sodium 139 135 - 145 mmol/L Potassium, pl 3.8 3.3 - 4.9 mmol/L [facility] Chloride 103 97 - 110 mmol/L [facility] CO2 26 22 - 32 mmol/L [facility] Anion gap 10 2 - 15 mmol/L [facility] BUN 13 6 - 25 mg/dL [facility] Creatinine 1.38(H) 0.80 - 1.30 mg/dL [facility] Glucose 107 70 - 199 mg/dL [facility] Comment: Interpretive Data Fasting glucose >/= 126 mg/dl is diagnostic for diabetes. Fasting is defined as no caloric intake [...] 2022. Calcium 9.2 8.5 - 10.3 mg/dL [facility] Blood 10/17/2024 11:2 9 AM HOME HEALTH CLINICIAN 10/17/2024 11:35 AM HOME HEALTH CLINICIAN us Kavitha Ramirez TOASTER OPERATOR LAB BLOOD ORDERABLES Final Res ult [facility] [address] [place] [address] * CT Chest Abdomen Pelvis W Contrast (10/11/2023 10:12 AM HOME HEALTH CLINICIAN) Anatomical Region Laterality Modality Body N/A Computed Tomogra phy 10/11/2023 11:0 3 AM HOME HEALTH CLINICIAN Impressions 10/11/2023 11:03 AM HOME HEALTH CLINICIAN A 12 x 12 mm pulmonary nodule in the lateral aspect of the right costophrenic sulcus, new since 2019, is suspicious for primary lung malignancy. Electronically signed by: Jayshree Giles MD, Ph.D Narrative 10/11/2023 11:03 AM HOME HEALTH CLINICIAN EXAMINATION: Computed tomography of chest/abdomen/pelvis with intravenous [...] No suspicious osseous lesion. Procedure Note Jayshree Prestno MD PhD - 10/11/2023 EXAMINATION: Computed tomography [...] by: Jayshree Giles MD, Ph.D Taylor Bland TOASTER OPERATOR IMG CT PROCEDURES Final Result from Last 3 Months or Most Recently Relevant to Health Maintenance Insurance [employer] CHOICE MEDICARE PPO [facility] OTHER Address: [address] [place] [address] [employer] [facility] Address: [address] [place] [address] MEDICARE [employer] CHOICE MEDICARE PPO IDPA Advance Directives For more information, please contact: [phone] Documents on File Type Date Recorded Patient Cargo And Container Inspector Expl anation ADVANCE DIRECTIVE 01/10/2024 3:33 PM LIVING WILL ADVANCE DIRECTIVE 01/10/2024 3:33 PM POWER OF RAT EXTERMINATOR-MEDICAL * Full Code (Latest Code Status on [...] 5:17 PM 12/30/2019 5:42 PM Care Teams Philosophy Faculty Relationship Specialty Start Date End Date Wolfgang Serrano MD [address] [place] [address] PCP - General Family Medicine 08/03/24 Wolfgang Serrano MD [address] [place] [address] Family Medicine 08/03/24 Unknown, Notinfile 03/12/22 [place] [address] [address] [facility] [address] [place] [address] 03/12/22 Chuy Enriquez MD [address] [facility] [address] [place] [address] Consulting Physician Pulmonary Disease 10/13/23 Luis Felipe Cedillo MD [address] [facility] [facility] [address] [place] [address] Consulting Physician Gastroenterology 10/13/23 Marlene Thornton MD [address] [facility] [address] [place] [address] Surgeon Vascular Surgery 11/10/23
--- OUTSIDE RECORDS SUMMARY | 2025-01-06 10:43 | XMS_ITS | Encounter Summary ---
Author Organization [facility] Address [address] [place] [address] Phone Care Team Providers Care Route Clerk Name Role Phone Santino Funk MD Primary Care Provider + Unknown, Notinfile Primary Care Provider Unavail able No, Physician Primary Care Provider Santino Funk MD Primary Care Provider + Wolfgang Serrano MD Primary Care Provider Wolfgang Serrano MD Primary Care Provider Wolfgang Serrano MD Unavailable [phone] Unknown, Notinfile Unavailable Unavailable Santino Funk MD Unavailable [phone] Chuy Enriquez MD Unavailable [phone] Luis Felpie Cedillo MD Unavailable [phone] Marlene Thornton MD Unavailable [phone] Encounter Details Date Type Department Care Team (Late st Contact Info) Description 02/15/2018 Orders Only [facility] ProviderGartet MD [address] [place] [address] Social History Tobacco Use Types Packs/Day Years Used Date Smoking Tobacco: Former Alcohol Use Standard Drinks/Week Comments Yes 0 (1 standard drink = 0.6 oz pur e alcohol) Sex and Gender Information Value Date Recorded Sex Assigned at Not on file Legal Sex Male 3:25 PM DIRECTOR OF VITAL STATISTICS Gender Identity Not on file Sexual Orientation Not on file documented as of this encounter Plan of Treatment Scheduled Procedures Name Priority Associated Diagnoses Date/Ti me ESOPHAGOGASTRODUODENOSCOPY Dysphagia, unspecified type documented as of [...] 12/17/2021 12/17/2021 12/17/2021 10:19 PM DIRECTOR OF VITAL STATISTICS documented as of this encounter Care Teams Route Clerk Relationship Specialty [place] [address] [place] [place] [address] PCP - General 11/12/16 03/11/22 Unknown, Notinfile PCP - General 03/12/22 05/13/22 No, Physician PCP - General 05/14/22 09/29/22 [place] [address] [facility] [place] [address] PCP - General Internal Medicine 09/30/22 05/04/23 Wolfgang Serrano MD PCP - General Family Medicine 05/05/23 08/02/24 Wolfgang Serrano MD [address] [address] PCP - General Family Medicine 08/03/24 Wolfgang Serrano MD Family Medicine 08/03/24 Unknown, Notinfile 03/12/22 [place] [address] [address] [facility] [address] [place] [address] 03/12/22 Chuy Enriquez MD [address] [facility] [address] [place] [address] Consulting Physician Pulmonary Disease 10/13/23 Luis Felipe Cedillo MD [address] [facility] [address], [place] [address] Consulting Physician Gastroenterology 10/13/23 Marlene Thornton MD [address] [facility] [address] [place] [address] Surgeon Vascular Surgery 11/10/23 documented as of this encounter
--- OUTSIDE RECORDS SUMMARY | 2025-01-06 10:43 | XMS_ITS | Referral Summary ---
Author Organization [facility] Address [address] [place] [address] Care Team Providers Care Systems Architect Name Role Phone Wolfgang Serrano MD Primary Care Provider Wolfgang Serrano MD Unavailable [phone] Unknown, Notinfile Unavailable Unavailable Santino Funk MD Unavailable [phone] Chuy Enriquez MD Unavailable Luis Felipe Cedillo MD Unavailable [phone] Marlene Thornton MD Unavailable Encounters Date Type Department Care Team Description 11/03/2024 Telephone [facility] D[facility]atology [address] [place] [address] Hesham Lamb PA Medication not helping, sooner appt 10/24/2024 3:15 PM [employer] [place]STATE [place] Office Visit [facility] [address] [facility] [address] [place] [address] Hesham Lamb PA Atopic dermatitis, unspecified type (Primary Dx); Pruritus 10/13/2024 11:59 PM [employer] [place] [place] Anesthesia Event [facility] Operating Room [address] [place] [address] Kavitha Ramirez NP 10/20/2024 Documentation [facility] Pre Anesthesia Testing [address] [place], [place] [id number] Madie Trujillo RN 10/17/2024 10:45 AM [place] Pre-Admission Testing [facility] Pre Anesthesia Testing [address] [place] [id number] Pre-op testing (Primary Dx) 10/12/2024 Telephone [facility] Medicine at [address] [place] [address] Grey Dykes MD 10/09/2024 Telephone [facility] Gastroenterology [address] [place] [address] Medical Office [address], [address] [place] [address] Jenni Eddy RN Unsuccessful Phone Call 1; GI Preprocedure from Last 3 Months Allergies No known [...] 06/22/2024 Assessment & Plan (10/05/2024 9:45 AM [employer] [place]STATE [place]): The patient has advanced arthritis of the [...] 2025 Assessment & Plan (11/18/2023 2:34 PM REAL ESTATE [place]GAL): RLL nodule in a patient without clear [...] maintenance/vaccinations Assessment & Plan (11/18/2023 2:34 PM REAL ESTATE [place]GAL): Related to hiatal hernia, reflux Sx are [...] (12/05/2019): Added automatically from request for surgery [id number] Subchondral insufficiency fracture of condyle of left [...] neuropathy Abnormality of gait and mobility Immunizations Immunization Administration Dates Next Due Influenza, Quadrivalent, Berenice l Culture-based MDCK, Preservative Free, Antibiotic Free, Intramuscular 07/11/2020 Influenza, Trivalent, High D ose, Split, Preservative Free, Intramuscular 12/30/2019 Pneumococcal Polysaccharide PPV23 07/11/2020 Social History Tobacco Use Types Packs/Day Years Used Date Smoking Tobacco: Former Cigarettes 1 6 - 1966 Passive Smoke Exposure: Never Smokeless [...] materials from doctor or pharmacy Sometimes 03/08/2024 [facility] Utilities Answer Date Recorded In the past 12 months has th e [employer], gas, oil, or water company threatened to [...] How often do you attend chur or gnosticist services? More than 4 times [...] Recorded Patient Health Questionnaire-2 Score 0 01/06/2024 [facility] [...] in a penitentiary (including now)? No 12/16/2023 PHQ-9 Answer Date [...] Legal Sex Male 3:25 PM [employer] [place] Gender Identity Not on file Sexual Orientation Not on file Last Filed Vital Signs Vital Sign Reading Time Taken Comments Blood Pressure 125/81 10/17/2024 11:19 AM [employer] [place]STATE [place] Pulse 72 10/17/2024 11:19 AM [place] Temperature 36.1 C (96.9 F) 10/17/2024 11:19 AM [employer] [place] [place] Respiratory Rate 16 10/17/2024 11:19 AM [place] Oxygen Saturation 99% 10/17/2024 11:19 AM [employer] [place] Inhaled Oxygen Concentration - - Weight 85.3 kg (188 lb) 10/05/2024 9:24 AM [place] Height 177.8 cm (5' 10 ) 10/05/2024 9:24 AM [employer] [place] Body Mass Index 26.98 10/05/2024 9:24 AM [employer] [place]STATE [place] Plan of Treatment Scheduled Procedures Name Priority Associated Diagnoses Date/Ti ak ESOPHAGOGASTRODUODENOSCOPY Dysphagia, unspecified type Medical Devices Implanted Type Area Stove Refinisher Device Identifier Shelf Expiration Date Model / Serial / Lot [employer] 201.050 Nif - [id number] Implanted:Qty: 1 on 09/22/2018 by George Sepulveda MD at [facility] al: Knee [employer] 04/09/2020 201.050 / / [id number] Subchondroplasty Knee Kit Implanted:Qty: 1 on 09/22/2018 by George Sepulveda MD at [facility] al: Knee [employer] 11/10/2020 402.203(201.0 50) / [id number] / [id number] Description:KIT CONTAINS IMP LANT: VAN, 5ML, REF# 201.050, LOT # [id number], EX: 11-10-2020 System Accumix Bone Cement - [id number] Implanted:Qty: 1 on 09/22/2018 by George Sepulveda MD at [facility] [employer] 03/28/2021 311.100 / / [id number] [employer] [id number] Palacos R+G High Viscosity Cement Bone Gentamicin Arthroplasty - [id number] Implanted:Qty: 1 on 11/24/2021 by George Sepulveda MD at [facility] Right: Knee [employer] 05/10/2024 [id number] / / [id number] [employer] [id number] Persona Cruciate Retain Knee Right 11 Narrow Component Femoral - [id number] Implanted:Qty: 1 on 11/24/2021 by George Sepulveda MD at [facility] Right: Knee [employer] 07/13/2030 [id number] / / [id number] [employer] [id number] Persona 35mm Knee Component Patellar All Poly Latex Free - [id number] Implanted:Qty: 1 on 11/24/2021 by George Sepulveda MD at [facility] Right: Knee [employer] 03/25/2029 [id number] / / [id number] [employer] [id number] Persona 14mm 30+ Mm Knee Tibia Taper Extension Stem - [id number] Implanted:Qty: 1 on 11/24/2021 by George Sepulveda MD at [facility] Right: Knee [employer] 07/27/2031 [id number] / / [id number] [employer] [id number] Persona Natural Tibia Stem Knee Right 5d G Baseplate Tibial - [id number] Implanted:Qty: 1 on 11/24/2021 by George Sepulveda MD at [facility] Right: Knee [employer] 05/13/2031 [id number] / / [id number] [employer] [id number] Persona 10mm Knee Insert Articular Vivacit-E Sterile - [id number] Implanted:Qty: 1 on 11/24/2021 by George Sepulveda MD at [facility] Right: Knee [employer] 05/06/2026 [id number] / / [id number] Procedures Procedure Name Priority Date/Time Associated Diagnosis Comments EGFR Routine 10/17/2024 11:29 AM [employer] [place] Pre-op testing DIFFERENTIAL AUTO Routine 10/17/2024 11: 29 AM [place] Pre-op testing BASIC METABOLIC PANEL Routine 10/17/2024 11:29 AM [place] Pre-op testing CBC WITH AUTO DIFFERENTIAL Routine 10/17/2024 11:29 AM [place] Pre-op testing TYPE AND SCREEN Routine 10/17/2024 11:29 AM [place] Pre-op testing CT CHEST ABDOMEN PELVIS W CONTRAST ED Urgent/IP Urgent 10/11/2023 10:12 AM [place] from Last 3 Months or Most Recently Relevant to Health Maintenance Results * (ABNORMAL) eGFR (10/17/2024 11:29 AM REAL [employer]STATE [place]GAL) eGFR 52(L) >=60 mL/min/1. 73 m2 Comment: [...] reviewed 2021. Blood 10/17/2024 11:2 9 AM [employer] [place] 10/17/2024 11:35 AM [place] us Kavitha Ramirez SAND MIXER MACHINE LAB BLOOD ORDERABLES Final Res ult [facility] [address] Department [place] [address] * (ABNORMAL) Differential, auto (10/17/2024 11:29 AM REAL [place]STATE [place]) Neutrophil abs 4.9 1.5 - 6.5 K/cumm Imm gran abs 0.0 0.0 - 0.1 K/cumm [facility] Lymphocyte abs 1.6 0.8 - 3.3 K/cumm [facility] Monocyte abs 0.6 0.2 - 0.8 K/cumm [facility] Eosinophil abs 0.7(H) 0.0 - 0.5 K/cumm [facility] Basophil abs 0.0 0.0 - 0.1 K/cumm [facility] Neutrophil pct 61.7 % [facility] Comment: Interpretive Data Percent cell count reference ranges are not reported, since discordance with absolute values may lead to misinterpretation of CBC data. Current Interpretive Data was last revised on 2018. Imm gran pct 0.3 % [facility] Comment: Interpretive Data Percent cell count reference ranges are not reported, since discordance with absolute values may lead to misinterpretation of CBC data. Current Interpretive Data was last revised on 2018. Lymphocyte pct 20.6 % [facility] Comment: Interpretive Data Percent cell count reference ranges are not reported, since discordance with absolute values may lead to misinterpretation of CBC data. Current Interpretive Data was last revised on 2018. Monocyte pct 8.2 % [facility] Comment: Interpretive Data Percent cell count reference ranges are not reported, since discordance with absolute values may lead to misinterpretation of CBC data. Current Interpretive Data was last revised on 2018. Eosinophil pct 8.8 % [facility] Comment: Interpretive Data Percent cell count reference ranges are not reported, since discordance with absolute values may lead to misinterpretation of CBC data. Current Interpretive Data was last revised on 2018. Basophil pct 0.4 % [facility] Comment: Interpretive Data Percent cell count reference ranges are not reported, since discordance with absolute values may lead to misinterpretation of CBC data. Current Interpretive Data was last revised on 2018. Blood 10/17/2024 11:2 9 AM [place] 10/17/2024 11:34 AM [place] Kavitha Ramirez NP LAB BLOOD ORDERABLES Final Res ult [facility] [address] [place] [address] * (ABNORMAL) CBC with auto differential (10/17/2024 11:29 AM REAL ESTATE [place]GAL) WBC 7.9 3.8 - 9.9 K/cumm Hgb 9.1(L) 13.0 - 17.5 g/dL [facility] Hct 30.1(L) 38.9 - 50.3 % [facility] Plt 279 150 - 400 K/cumm [facility] MPV 10.9 9.1 - 12.3 fL [facility] RBC 3.29(L) 4.30 - 5.80 M/cumm [facility] MCV 91.5 81.3 - 96.4 fL [facility] MCH 27.7 27.1 - 33.3 pg [facility] MCHC 30.2(L) 32.3 - 35.7 g/dL [facility] RDW CV 16.8(H) 11.1 - 14.9 % [facility] RDW SD 56.8(H) 35.7 - 48.1 fL [facility] NRBC abs 0.00 0.00 - 0.01 K/cumm [facility] Blood 10/17/2024 11:2 9 AM [employer] [place] 10/17/2024 11:34 AM [place]STATE [place] Kavitha Ramirez NP LAB BLOOD ORDERABLES Final Res ult Performing Organization Address [facility] Co de Phone Number MARVIN FISHER [address] [facility] [place] [address] * Type and screen (10/17/2024 11:29 AM REAL ESTATE [place]GAL) Sarah, indirect Negative ABO Rh O Negative [facility] Blood 10/17/2024 11:2 9 AM [employer] [place]STATE [place]GAL 10/17/2024 11:37 AM [place]STATE [place] Narrative [facility] - 10/17/2024 3:48 PM REAL ESTATE [place]GAL Is this test being ordered in advance for a procedure?->Yes Expected date of procedure:->10/23/24 Has the patient been transfused in the past 3 months?->Unknown Kavitha Ramirez NP LAB BLOOD BANK TEST ORDERABLES Final Result Performing Organization Address [facility] de Phone Number MARVIN FISHER [address] [place] [place] [address] * (ABNORMAL) Basic metabolic panel (10/17/2024 11:29 AM REAL [place]STATE [place]) Sodium 139 135 - 145 mmol/L Potassium, pl 3.8 3.3 - 4.9 mmol/L [facility] Chloride 103 97 - 110 mmol/L [facility] CO2 26 22 - 32 mmol/L [facility] Anion gap 10 2 - 15 mmol/L [facility] BUN 13 6 - 25 mg/dL [facility] Creatinine 1.38(H) 0.80 - 1.30 mg/dL [facility] Glucose 107 70 - 199 mg/dL [facility] [...] MARVIN FISHER Blood 10/17/2024 11:2 9 AM [place] 10/17/2024 11:35 AM [place] us Kavitha Ramirez SAND MIXER MACHINE LAB BLOOD ORDERABLES Final Res ult MARVIN [address] Department [place] [address] * CT Chest Abdomen Pelvis W Contrast (10/11/2023 10:12 AM [employer] [place]STATE [place]) Anatomical Region Laterality Modality Body N/A Computed Tomogra phy 10/11/2023 11:0 3 AM [place]STATE [place] Impressions 10/11/2023 11:03 AM [place] A 12 x 12 mm pulmonary nodule in the lateral aspect of the right costophrenic sulcus, new since 2019, is suspicious for primary lung malignancy. Electronically signed by: Jayshree Giles MD, Ph.D Narrative 10/11/2023 11:03 AM [place] EXAMINATION: Computed tomography of chest/abdomen/pelvis with intravenous [...] Bland NP IMG CT PROCEDURES Final Result from Last 3 Months or Most Recently Relevant to Health [place] [address] [employer] [place] [address] [facility] OOS MEDICARE [employer] MEDIC[employer] PPO IDPA Advance Directives For more information, please contact: [phone] Documents on File Type Date Recorded Patient Operating Systems Programmer Expl anation ADVANCE DIRECTIVE 01/10/2024 3:33 PM LIVING WILL ADVANCE DIRECTIVE 01/10/2024 3:33 PM POWER OF DRYING MACHINE TENDER-MEDICAL * Full Code (Latest Code Status on [...] 5:17 PM 12/30/2019 5:42 PM Care Teams Systems Architect Relationship Specialty Start Date End Date Wolfgang Serrano MD [address] [place] [address] PCP - General Family Medicine 08/03/24 Wolfgang Serrano MD [address] [place] [address] Family Medicine 08/03/24 Unknown, Notinfile 03/12/22 [place] [address] [facility][1] [address] [place] [address] 03/12/22 Chuy Enriquez MD [address] [facility] [address] [place] [address] Consulting Physician Pulmonary Disease 10/13/23 Luis Felipe Cedillo MD [address] [facility] [address] [place] [address] Consulting Physician Gastroenterology 10/13/23 Marlene Thornton MD [address] [facility] [address] [address] Surgeon Vascular Surgery 11/10/23
--- OUTSIDE RECORDS SUMMARY | 2025-01-06 12:43 | XMS_ITS | Continuity of Care Document ---
Author Organization [facility] Address [address] [place] [address] Phone Care Team Providers Care Escalator Constructor Name Role Phone Caio ADKINS, Jhonny Unavailable Unavailable Landon RN, Nguyen Unavailable Unavailable Procedures Procedure Date Voided Encounter Coronavirus AG IA (Rapid Test) 20 Voided Encounter Advance Directives Directive Yes / No Effective Date File Name No Information Encounters Encounter Description Practice Location Reason(s) For Visit Diagnoses Date Provider Providers Copied on Encounter [facility] , [address], [place], [place], [id number], tel:[phone] [facility] No Information 0 Caio Barry. [address] [place] [address], [id number], . tel:[phone] Consulting Provider: Nguyen Navarrete, [address], [place], [address]. tel:[phone] [facility] , [address], [place], [place], [id number], tel:[phone] [facility] No Information 0 No Information [facility] , [address], [place], [place], [address], tel:[phone] [facility] Contact w and exposure to oth viral communicable diseases 0 Caio Barry. [address], [place], [place], [address], . tel:[phone] [facility] , [address], [place], [place], [address], tel:[phone] [facility] No Information 0 Mathew Wilkinson. [address], [place], [place], [id number], [place]. tel:[phone] Family History Family Member Type Diagnosis Age At Onset No Information Payers Payer name Insurance type Covered green party ID Authoriza tion(s) No Information Social [...]
--- OUTSIDE RECORDS SUMMARY | 2025-01-06 12:43 | XMS_ITS | Encounter Summary ---
Author Organization [facility] Address [address] [place] [address] Phone Care Team Providers Care Patient Support Partner Name Role Phone Santino Funk MD Primary Care Provider + Unknown, Notinfile Primary Care Provider Unavail able No, Physician Primary Care Provider Santino Funk MD Primary Care Provider + Wolfgang Serrano MD Primary Care Provider Wolfgang Serrano MD Primary Care Provider Wolfgang Serrano MD Unavailable [phone] Unknown, Notinfile Unavailable Unavailable Santino Funk MD Unavailable [phone] Chuy Enriquez MD Unavailable [phone] Luis Felipe Cedillo MD Unavailable [phone] Marlene Thornton MD Unavailable [phone] Encounter Details Date Type Department Care Team (Late st Contact Info) Description 02/15/2018 Orders Only [facility] ProviderGarett MD [address] [place] [address] Social History Tobacco Use Types Packs/Day Years Used Date Smoking Tobacco: Former Alcohol Use Standard Drinks/Week Comments Yes 0 (1 standard drink = 0.6 oz pur e alcohol) Sex and Gender Information Value Date Recorded Sex Assigned at Not on file Legal Sex Male 3:25 PM RN CLINICAL REVIEW Gender Identity Not on file Sexual Orientation [...] COVID: Suspected 12/17/2021 12/17/2021 12/17/2021 10:19 PM RN CLINICAL REVIEW documented as of this encounter Care Teams Patient Support Partner Relationship Specialty [place] [address] [address] [facility] [place] [address] PCP - General 11/12/16 03/11/22 Unknown, Notinfile PCP - General 03/12/22 05/13/22 No, Physician PCP - General 05/14/22 09/29/22 [place] [address] [address] [facility] [place] [address] PCP - General Internal Medicine 09/30/22 05/04/23 Wolfgang Serrano MD PCP - General Family Medicine 05/05/23 08/02/24 Wolgfang Serrano MD [address] [address] PCP - General Family Medicine 08/03/24 Wolfgang Serrano MD Family Medicine 08/03/24 Unknown, Notinfile 03/12/22 [place] [address] [address] [facility] [address] [place] [address] 03/12/22 Chuy Enriquez MD [address] [facility] [address] [place] [address] Consulting Physician Pulmonary Disease 10/13/23 Luis Felipe Cedillo MD [address] [facility] [address] [address] Consulting Physician Gastroenterology 10/13/23 Marlene Thornton MD [address] [facility] [address] [address] Surgeon Vascular Surgery 11/10/23 documented as of this encounter
--- OUTSIDE RECORDS SUMMARY | 2025-01-06 12:43 | XMS_ITS | Clinical Summary ---
Author Organization [facility] Address [address] [place] [address] Care Team Providers Care Platinum Smith Name Role Phone Wolfgagn Serrano MD Primary Care Provider Wolfgang Serrano MD Unavailable Unknown, Notinfile Unavailable Unavailable Santino Funk MD Unavailable Chuy Enriquez MD Unavailable Luis Felipe Cedillo MD Unavailable Marlene Thornton MD Unavailable [phone] Allergies No known active allergies Medications cholecalciferol [...] 06/22/2024 Assessment & Plan (10/05/2024 9:45 AM FURNACE COMBUSTION ANALYST): The patient has advanced arthritis of the [...] 2025 Assessment & Plan (11/18/2023 2:34 PM FURNACE COMBUSTION ANALYST): RLL nodule in a patient without clear [...] maintenance/vaccinations Assessment & Plan (11/18/2023 2:34 PM FURNACE COMBUSTION ANALYST): Related to hiatal hernia, reflux Sx are [...] (12/05/2019): Added automatically from request for surgery [id number] Subchondral insufficiency fracture of condyle of left [...] Type Department Care Team Description 11/03/2024 Telephone [facility] Dermatology [address] [place] [address] Hesham Lamb PA Medication not helping, sooner appt 10/24/2024 3:15 PM FURNACE COMBUSTION ANALYST Office Visit [facility] D[facility] [address] [place] [address] Hesham Lamb PA Atopic dermatitis, unspecified type (Primary Dx); Pruritus 10/20/2024 Documentation [facility] Pre Anesthesia Testing [address] [place] [address] Madie Trujillo RN 10/17/2024 10:45 AM FURNACE COMBUSTION ANALYST Pre-Admission Testing [facility] Pre Anesthesia Testing [address] [place] [address] Pre-op testing (Primary Dx) 10/13/2024 11:59 PM FURNACE COMBUSTION ANALYST Anesthesia Event [facility] Operating Room [address] [place] [address] Kavitha Ramirez NP 10/12/2024 Telephone [facility] at [facility] [id number] [place] [address] [address] [place] [address] Grey Dykes MD 10/09/2024 Telephone [facility] [address] [place] [address] Jenni Eddy RN Unsuccessful Phone [...] materials from doctor or pharmacy Sometimes 03/08/2024 [facility] Utilities Answer Date Recorded In the past 12 months has e [employer], gas, oil, or water [employer] threatened to shut off services in your [...] Patient Health Questionnaire-2 Score 0 01/06/2024 [facility] - [...] in a [facility] (including now)? No 12/16/2023 PHQ-9 Answer Date [...] file Legal Sex Male 3:25 PM FURNACE COMBUSTION ANALYST Gender Identity Not on file Sexual Orientation Not on file Obstetrics History Last Filed Vital Signs Vital Sign Reading Time Taken Comments Blood Pressure 125/81 10/17/2024 11:19 AM FURNACE COMBUSTION ANALYST Pulse 72 10/17/2024 11:19 AM FURNACE COMBUSTION ANALYST Temperature 36.1 C (96.9 F) 10/17/2024 11:19 AM FURNACE COMBUSTION ANALYST Respiratory Rate 16 10/17/2024 11:19 AM FURNACE COMBUSTION ANALYST Oxygen Saturation 99% 10/17/2024 11:19 AM FURNACE COMBUSTION ANALYST Inhaled Oxygen Concentration - - Weight 85.3 kg (188 lb) 10/05/2024 9:24 AM FURNACE COMBUSTION ANALYST Height 177.8 cm (5' 10 ) 10/05/2024 9:24 AM FURNACE COMBUSTION ANALYST Body Mass Index 26.98 10/05/2024 9:24 AM FURNACE COMBUSTION ANALYST Plan of Treatment Scheduled Procedures Name Priority [...] 11/12/2023, 10/11/2023 Medical Devices Implanted Type Area Metal Ceiling Hanger Device Identifier Shelf Expiration Date Model / Serial / Lot [employer] 201.050 Nif - [id number] Implanted:Qty: 1 on 09/22/2018 by George Sepulveda MD at [facility] al: Knee [employer] 04/09/2020 201.050 / / [id number] Subchondroplasty Knee Kit Implanted:Qty: 1 on 09/22/2018 by George Sepulveda MD at [facility] al: Knee [employer] 11/10/2020 402.203(201.0 50) / [id number] / [id number] Description:KIT CONTAINS IMP LANT: ACCUFILL, 5ML, REF# 201.050, LOT # [id number], EX: 11-10-2020 System [employer]ix Bone Cement - [id number] Implanted:Qty: 1 on 09/22/2018 by George Sepulveda MD at [facility] [employer] 03/28/2021 311.100 / / [id number] [employer] [id number] Palacos R+G High Viscosity Cement Bone Gentamicin Arthroplasty - [id number] Implanted:Qty: 1 on 11/24/2021 by George Sepulveda MD at [facility] Right: Knee [employer] 05/10/2024 [id number] / / [id number] [employer] [id number] Persona Cruciate Retain Knee Right 11 Narrow Component Femoral - [id number] Implanted:Qty: 1 on 11/24/2021 by George Sepulveda MD at [facility] Right: Knee [employer] 07/13/2030 [id number] / / [id number] [employer] [id number] Persona 35mm Knee Component Patellar All Poly Latex Free - [id number] Implanted:Qty: 1 on 11/24/2021 by George Sepulveda MD at [facility] Right: Knee [employer] 03/25/2029 [id number] / / [id number] [employer] [id number] Persona 14mm 30+ Mm Knee Tibia Taper Extension Stem - [id number] Implanted:Qty: 1 on 11/24/2021 by George Sepulveda MD at [facility] Right: Knee [employer] 07/27/2031 [id number] / / [id number] [employer] [id number] Persona Natural Tibia Stem Knee Right 5d G Baseplate Tibial - [id number] Implanted:Qty: 1 on 11/24/2021 by George Sepulveda MD at [facility] Right: Knee [employer] 05/13/2031 [id number] / / [id number] [employer] [id number] Persona 10mm Knee Insert Articular Vivacit-E Sterile - [id number] Implanted:Qty: 1 on 11/24/2021 by George Sepulveda MD at [facility] Right: Knee [employer] 05/06/2026 [id number] / / [id number] Procedures Procedure Name Priority Date/Time Associated Diagnosis Comments EGFR Routine 10/17/2024 11:29 AM FURNACE COMBUSTION ANALYST Pre-op testing DIFFERENTIAL AUTO Routine 10/17/2024 11: 29 AM FURNACE COMBUSTION ANALYST Pre-op testing BASIC METABOLIC PANEL Routine 10/17/2024 11:29 AM FURNACE COMBUSTION ANALYST Pre-op testing CBC WITH AUTO DIFFERENTIAL Routine 10/17/2024 11:29 AM FURNACE COMBUSTION ANALYST Pre-op testing TYPE AND SCREEN Routine 10/17/2024 11:29 AM FURNACE COMBUSTION ANALYST Pre-op testing CT CHEST ABDOMEN PELVIS W CONTRAST ED Urgent/IP Urgent 10/11/2023 10:12 AM FURNACE COMBUSTION ANALYST from Last 3 Months or Most Recently Relevant to Health Maintenance Results * (ABNORMAL) eGFR (10/17/2024 11:29 AM FURNACE COMBUSTION ANALYST) eGFR 52(L) >=60 mL/min/1. 73 m2 Comment: [...] reviewed 2021. Blood 10/17/2024 11:2 9 AM FURNACE COMBUSTION ANALYST 10/17/2024 11:35 AM FURNACE COMBUSTION ANALYST us Kavitha Ramirez NP LAB BLOOD ORDERABLES Final Res ult [facility] [address] Department [place] [address] * (ABNORMAL) Differential, auto (10/17/2024 11:29 AM FURNACE COMBUSTION ANALYST) Neutrophil abs 4.9 1.5 - 6.5 K/cumm Imm gran abs 0.0 0.0 - 0.1 K/cumm [facility] Lymphocyte abs 1.6 0.8 - 3.3 K/cumm [facility] Monocyte abs 0.6 0.2 - 0.8 K/cumm [facility] Eosinophil abs 0.7(H) 0.0 - 0.5 K/cumm [facility] Basophil abs 0.0 0.0 - 0.1 K/cumm [facility] Neutrophil pct 61.7 % [facility] Comment: Interpretive Data Percent cell count reference ranges are not reported, since discordance with absolute values may lead to misinterpretation of CBC data. Current Interpretive Data was last revised on 2018. Imm gran pct 0.3 % [facility] Comment: Interpretive Data Percent cell count reference ranges are not reported, since discordance with absolute values may lead to misinterpretation of CBC data. Current Interpretive Data was last revised on 2018. Lymphocyte pct 20.6 % [facility] Comment: Interpretive Data Percent cell count reference ranges are not reported, since discordance with absolute values may lead to misinterpretation of CBC data. Current Interpretive Data was last revised on 2018. Monocyte pct 8.2 % [facility] Comment: Interpretive Data Percent cell count reference ranges are not reported, since discordance with absolute values may lead to misinterpretation of CBC data. Current Interpretive Data was last revised on 2018. Eosinophil pct 8.8 % [facility] Comment: Interpretive Data Percent cell count reference ranges are not reported, since discordance with absolute values may lead to misinterpretation of CBC data. Current Interpretive Data was last revised on 2018. Basophil pct 0.4 % [facility] Comment: Interpretive Data Percent cell count reference ranges are not reported, since discordance with absolute values may lead to misinterpretation of CBC data. Current Interpretive Data was last revised on 2018. Blood 10/17/2024 11:2 9 AM FURNACE COMBUSTION ANALYST 10/17/2024 11:34 AM FURNACE COMBUSTION ANALYST us Kavitha Ramirez APPLIANCE REPAIRER LAB BLOOD ORDERABLES Final Res ult [facility] [address] Department [place] [address] * (ABNORMAL) CBC with auto differential (10/17/2024 11:29 AM FURNACE COMBUSTION ANALYST) WBC 7.9 3.8 - 9.9 K/cumm Hgb 9.1(L) 13.0 - 17.5 g/dL [facility] Hct 30.1(L) 38.9 - 50.3 % [facility] Plt 279 150 - 400 K/cumm [facility] MPV 10.9 9.1 - 12.3 fL [facility] RBC 3.29(L) 4.30 - 5.80 M/cumm [facility] MCV 91.5 81.3 - 96.4 fL [facility] MCH 27.7 27.1 - 33.3 pg [facility] MCHC 30.2(L) 32.3 - 35.7 g/dL [facility] RDW CV 16.8(H) 11.1 - 14.9 % [facility] RDW SD 56.8(H) 35.7 - 48.1 fL [facility] NRBC abs 0.00 0.00 - 0.01 K/cumm [facility] Blood 10/17/2024 11:2 9 AM FURNACE COMBUSTION ANALYST 10/17/2024 11:34 AM FURNACE COMBUSTION ANALYST Kavitha Ramirez NP LAB BLOOD ORDERABLES Final Res ult Performing Organization Address [facility] de Phone Number MARVIN [address] [place] [address] * Type and screen (10/17/2024 11:29 AM FURNACE COMBUSTION ANALYST) Pathologist [facility], indirect Negative ABO Rh O Negative [facility] Blood 10/17/2024 11:2 9 AM FURNACE COMBUSTION ANALYST 10/17/2024 11:37 AM FURNACE COMBUSTION ANALYST Narrative [facility] - 10/17/2024 3:48 PM FURNACE COMBUSTION ANALYST Is this test being ordered in advance for a procedure?->Yes Expected date of procedure:->10/23/24 Has the patient been transfused in the past 3 months?->Unknown Kavitha Ramirez NP LAB BLOOD BANK TEST ORDERABLES Final Result Performing Organization Address [facility] de Phone Number MARVIN [id number] [facility] [place] [address] * (ABNORMAL) Basic metabolic panel (10/17/2024 11:29 AM FURNACE COMBUSTION ANALYST) Sodium 139 135 - 145 mmol/L Potassium, pl 3.8 3.3 - 4.9 mmol/L [facility] Chloride 103 97 - 110 mmol/L [facility] CO2 26 22 - 32 mmol/L [facility] Anion gap 10 2 - 15 mmol/L [facility] BUN 13 6 - 25 mg/dL [facility] Creatinine 1.38(H) 0.80 - 1.30 mg/dL [facility] Glucose 107 70 - 199 mg/dL [facility] Comment: Interpretive Data Fasting [...] MARVIN FISHER Blood 10/17/2024 11:2 9 AM FURNACE COMBUSTION ANALYST 10/17/2024 11:35 AM FURNACE COMBUSTION ANALYST us Kavitha Ramirez APPLIANCE REPAIRER LAB BLOOD ORDERABLES Final Res ult [facility] [address] Department [place] [address] * CT Chest Abdomen Pelvis W Contrast (10/11/2023 10:12 AM FURNACE COMBUSTION ANALYST) Anatomical Region Laterality Modality Body N/A Computed Tomogra phy 10/11/2023 11:0 3 AM FURNACE COMBUSTION ANALYST Impressions 10/11/2023 11:03 AM FURNACE COMBUSTION ANALYST A 12 x 12 mm pulmonary nodule in the lateral aspect of the right costophrenic sulcus, new since 2019, is suspicious for primary lung malignancy. Electronically signed by: Jayshree Giles MD, Ph.D Narrative 10/11/2023 11:03 AM FURNACE COMBUSTION ANALYST EXAMINATION: Computed tomography of chest/abdomen/pelvis with intravenous [...] by: Jayshree Giles MD, Ph.D Taylor Bland APPLIANCE REPAIRER IMG CT PROCEDURES Final Result from Last 3 Months or Most Recently Relevant to Health Maintenance Insurance [employer] MEDICARE PPO [facility] OTHER Address: [address] [place] [address] [employer] MEDIC[employer] MEDIC[employer] PPO [employer] Advance Directives For more information, please contact: [phone] Documents on File Type Date Recorded Patient Treating Inspector Expl anation ADVANCE DIRECTIVE 01/10/2024 3:33 PM LIVING WILL ADVANCE DIRECTIVE 01/10/2024 3:33 PM POWER OF DRAPERY [employer] * Full Code (Latest Code Status on [...] 5:17 PM 12/30/2019 5:42 PM Care Teams Platinum Smith Relationship Specialty Start Date End Date Wolfgang Serrano MD [address] [place] [id number] PCP - General Family Medicine 08/03/24 Wolfgang Serrano MD [address] [place] [address] Family Medicine 08/03/24 Unknown, Notinfile 03/12/22 [place] [address] [address] [facility] [address] [place] [address] 03/12/22 Chuy Enriquez MD [address] [facility] [address] [place] [address] Consulting Physician Pulmonary Disease 10/13/23 Luis Felipe Cedillo MD [address] [facility] [address] [place] [address] Consulting Physician Gastroenterology 10/13/23 Marlene Thornton MD [address] [facility] [address] [place] [address] Surgeon Vascular Surgery 11/10/23
--- OUTSIDE RECORDS SUMMARY | 2025-01-06 12:43 | XMS_ITS | Referral Summary ---
Author Organization [facility] Address [address] [place] [address] Care Team Providers Care Power Brake Operator Name Role Phone Wolfgang Serrano MD Primary Care Provider Wolfgang Serrano MD Unavailable [phone] Unknown, Notinfile Unavailable Unavailable Santino Funk MD Unavailable [phone] Chuy Enriquez MD Unavailable Luis Felipe Cedillo MD Unavailable Marlene Thornton MD Unavailable [phone] Encounters Date Type Department Care Team Description 11/03/2024 Telephone [facility] Dermatology [address] [place] [address] Hesham Lamb PA Medication not helping, sooner appt 10/24/2024 3:15 PM COMPUTER ARCHITECT Office Visit [facility] Dermatology [address] [place] [address] Hesham Lamb PA Atopic dermatitis, unspecified type (Primary Dx); Pruritus 10/13/2024 11:59 PM COMPUTER ARCHITECT Anesthesia Event [facility] Operating Room [address] [place] [address] Kavitha Ramirez NP 10/20/2024 Documentation [facility] Pre Anesthesia Testing [address] [place], [place] [id number] Madie Trujillo RN 10/17/2024 10:45 AM COMPUTER ARCHITECT Pre-Admission Testing [facility] Pre Anesthesia Testing [address] [place] [phone] Pre-op testing (Primary Dx) 10/12/2024 Telephone [facility] at [address] [place] [address] Grey Dykes MD 10/09/2024 Telephone [facility] Gastroenterology [address] [place] [address] Medical Office Building [address], [address] [place] [address] Jenni Eddy RN Unsuccessful Phone [...] 06/22/2024 Assessment & Plan (10/05/2024 9:45 AM COMPUTER ARCHITECT): The patient has advanced arthritis of the [...] 2025 Assessment & Plan (11/18/2023 2:34 PM COMPUTER ARCHITECT): RLL nodule in a patient without clear [...] maintenance/vaccinations Assessment & Plan (11/18/2023 2:34 PM COMPUTER ARCHITECT): Related to hiatal hernia, reflux Sx are [...] (12/05/2019): Added automatically from request for surgery [id number] Subchondral insufficiency fracture of condyle of left [...] materials from doctor or pharmacy Sometimes 03/08/2024 [facility] Utilities Answer Date Recorded In the past 12 months has th e [employer], gas, oil, or water company threatened [...] How often do you attend chur or shinto services? More than 4 times [...] Recorded Patient Health Questionnaire-2 Score 0 01/06/2024 [facility] - Occupational [...] a group home (including now)? No 12/16/2023 PHQ-9 Answer Date [...] file Legal Sex Male 3:25 PM COMPUTER ARCHITECT Gender Identity Not on file Sexual Orientation Not on file Last Filed Vital Signs Vital Sign Reading Time Taken Comments Blood Pressure 125/81 10/17/2024 11:19 AM COMPUTER ARCHITECT Pulse 72 10/17/2024 11:19 AM COMPUTER ARCHITECT Temperature 36.1 C (96.9 F) 10/17/2024 11:19 AM COMPUTER ARCHITECT Respiratory Rate 16 10/17/2024 11:19 AM COMPUTER ARCHITECT Oxygen Saturation 99% 10/17/2024 11:19 AM COMPUTER ARCHITECT Inhaled Oxygen Concentration - - Weight 85.3 kg (188 lb) 10/05/2024 9:24 AM COMPUTER ARCHITECT Height 177.8 cm (5' 10 ) 10/05/2024 9:24 AM COMPUTER ARCHITECT Body Mass Index 26.98 10/05/2024 9:24 AM COMPUTER ARCHITECT Plan of Treatment Scheduled Procedures Name Priority Associated Diagnoses Date/Ti nd ESOPHAGOGASTRODUODENOSCOPY Dysphagia, unspecified type Medical Devices Implanted Type Area Card Runner Device Identifier Shelf Expiration Date Model / Serial / Lot [employer] 201.050 Nif - [id number] Implanted:Qty: 1 on 09/22/2018 by George Sepulveda MD at [facility] al: Knee [employer] 04/09/2020 201.050 / / [id number] Subchondroplasty Knee Kit Implanted:Qty: 1 on 09/22/2018 by George Sepulveda MD at [facility] al: Knee [employer] 11/10/2020 402.203(201.0 50) / [id number] / [id number] Description:KIT CONTAINS IMP LANT: VAN, 5ML, REF# 201.050, LOT # [id number], EX: 11-10-2020 System [employer] Bone Cement - [id number] Implanted:Qty: 1 on 09/22/2018 by George Sepulveda MD at [facility] [employer] 03/28/2021 311.100 / / [id number] [employer] [id number] Palacos R+G High Viscosity Cement Bone Gentamicin Arthroplasty - [id number] Implanted:Qty: 1 on 11/24/2021 by George Sepulveda MD at [facility] Right: Knee [employer] 05/10/2024 [id number] / / [id number] [employer] [id number] Persona Cruciate Retain Knee Right 11 Narrow Component Femoral - [id number] Implanted:Qty: 1 on 11/24/2021 by George Sepulveda MD at [facility] Right: Knee [employer] 07/13/2030 [id number] / / [id number] [employer] [id number] Persona 35mm Knee Component Patellar All Poly Latex Free - [id number] Implanted:Qty: 1 on 11/24/2021 by George Sepulveda MD at [facility] Right: Knee [employer] 03/25/2029 [id number] / / [id number] [employer] [id number] Persona 14mm 30+ Mm Knee Tibia Taper Extension Stem - [id number] Implanted:Qty: 1 on 11/24/2021 by George Sepulveda MD at [facility] Right: Knee [employer] 07/27/2031 [id number] / / [id number] [employer] [id number] Persona Natural Tibia Stem Knee Right 5d G Baseplate Tibial - [id number] Implanted:Qty: 1 on 11/24/2021 by George Sepulveda MD at [facility] Right: Knee [employer] 05/13/2031 [id number] / / [id number] [employer] [id number] Persona 10mm Knee Insert Articular Vivacit-E Sterile - [id number] Implanted:Qty: 1 on 11/24/2021 by George Sepulveda MD at [facility] Right: Knee [employer] 05/06/2026 [id number] / / [id number] Procedures Procedure Name Priority Date/Time Associated Diagnosis Comments EGFR Routine 10/17/2024 11:29 AM COMPUTER ARCHITECT Pre-op testing DIFFERENTIAL AUTO Routine 10/17/2024 11: 29 AM COMPUTER ARCHITECT Pre-op testing BASIC METABOLIC PANEL Routine 10/17/2024 11:29 AM COMPUTER ARCHITECT Pre-op testing CBC WITH AUTO DIFFERENTIAL Routine 10/17/2024 11:29 AM COMPUTER ARCHITECT Pre-op testing TYPE AND SCREEN Routine 10/17/2024 11:29 AM COMPUTER ARCHITECT Pre-op testing CT CHEST ABDOMEN PELVIS W CONTRAST ED Urgent/IP Urgent 10/11/2023 10:12 AM COMPUTER ARCHITECT from Last 3 Months or Most Recently Relevant to Health Maintenance Results * (ABNORMAL) eGFR (10/17/2024 11:29 AM COMPUTER ARCHITECT) eGFR 52(L) >=60 mL/min/1. 73 m2 Comment: [...] reviewed 2021. Blood 10/17/2024 11:2 9 AM COMPUTER ARCHITECT 10/17/2024 11:35 AM COMPUTER ARCHITECT us Kavitha Ramirez GROUNDS MAINTENANCE SUPERVISOR LAB BLOOD ORDERABLES Final Res ult [facility] [address] Department [place] [address] * (ABNORMAL) Differential, auto (10/17/2024 11:29 AM COMPUTER ARCHITECT) Neutrophil abs 4.9 1.5 - 6.5 K/cumm Imm gran abs 0.0 0.0 - 0.1 K/cumm [facility] Lymphocyte abs 1.6 0.8 - 3.3 K/cumm [facility] Monocyte abs 0.6 0.2 - 0.8 K/cumm [facility] Eosinophil abs 0.7(H) 0.0 - 0.5 K/cumm [facility] Basophil abs 0.0 0.0 - 0.1 K/cumm [facility] Neutrophil pct 61.7 % [facility] Comment: Interpretive Data Percent cell count reference ranges are not reported, since discordance with absolute values may lead to misinterpretation of CBC data. Current Interpretive Data was last revised on 2018. Imm gran pct 0.3 % [facility] Comment: Interpretive Data Percent cell count reference ranges are not reported, since discordance with absolute values may lead to misinterpretation of CBC data. Current Interpretive Data was last revised on 2018. Lymphocyte pct 20.6 % [facility] Comment: Interpretive Data Percent cell count reference ranges are not reported, since discordance with absolute values may lead to misinterpretation of CBC data. Current Interpretive Data was last revised on 2018. Monocyte pct 8.2 % [facility] Comment: Interpretive Data Percent cell [...] revised on 2018. Basophil pct 0.4 % [facility] Comment: Interpretive Data Percent cell count reference ranges are not reported, since discordance with absolute values may lead to misinterpretation of CBC data. Current Interpretive Data was last revised on 2018. Blood 10/17/2024 11:2 9 AM COMPUTER ARCHITECT 10/17/2024 11:34 AM COMPUTER ARCHITECT Kavitha Ramirez NP LAB BLOOD ORDERABLES Final Res ult [facility] [address] [place] [address] * (ABNORMAL) CBC with auto differential (10/17/2024 11:29 AM COMPUTER ARCHITECT) WBC 7.9 3.8 - 9.9 K/cumm Hgb 9.1(L) 13.0 - 17.5 g/dL [facility] Hct 30.1(L) 38.9 - 50.3 % [facility] Plt 279 150 - 400 K/cumm [facility] MPV 10.9 9.1 - 12.3 fL [facility] RBC 3.29(L) 4.30 - 5.80 M/cumm [facility] MCV 91.5 81.3 - 96.4 fL [facility] MCH 27.7 27.1 - 33.3 pg [facility] MCHC 30.2(L) 32.3 - 35.7 g/dL [facility] RDW CV 16.8(H) 11.1 - 14.9 % [facility] RDW SD 56.8(H) 35.7 - 48.1 fL [facility] NRBC abs 0.00 0.00 - 0.01 K/cumm [facility] Blood 10/17/2024 11:2 9 AM COMPUTER ARCHITECT 10/17/2024 11:34 AM COMPUTER ARCHITECT Kavitha Ramirez NP LAB BLOOD ORDERABLES Final Res ult Performing Organization Address [facility] Co de Phone Number MARVIN FISHER [address] [facility] [place] [address] * Type and screen (10/17/2024 11:29 AM COMPUTER ARCHITECT) Sarah, indirect Negative ABO Rh O Negative [facility] Blood 10/17/2024 11:2 9 AM COMPUTER ARCHITECT 10/17/2024 11:37 AM COMPUTER ARCHITECT Narrative [facility] - 10/17/2024 3:48 PM COMPUTER ARCHITECT Is this test being ordered in advance for a procedure?->Yes Expected date of procedure:->10/23/24 Has the patient been transfused in the past 3 months?->Unknown Kavitha Ramirez NP LAB BLOOD BANK TEST ORDERABLES Final Result Performing Organization Address [facility] de Phone Number MARVIN FISHER [address] [place] [employer] [place] [address] * (ABNORMAL) Basic metabolic panel (10/17/2024 11:29 AM COMPUTER ARCHITECT) Sodium 139 135 - 145 mmol/L Potassium, pl 3.8 3.3 - 4.9 mmol/L [facility] Chloride 103 97 - 110 mmol/L [facility] CO2 26 22 - 32 mmol/L [facility] Anion gap 10 2 - 15 mmol/L [facility] BUN 13 6 - 25 mg/dL [facility] Creatinine 1.38(H) 0.80 - 1.30 mg/dL [facility] Glucose 107 70 - 199 mg/dL [facility] Comment: Interpretive Data Fasting glucose [...] MARVIN FISHER Blood 10/17/2024 11:2 9 AM COMPUTER ARCHITECT 10/17/2024 11:35 AM COMPUTER ARCHITECT us Kavitha Ramirez GROUNDS MAINTENANCE SUPERVISOR LAB BLOOD ORDERABLES Final Res ult [facility]VIN [address] [place] [address] * CT Chest Abdomen Pelvis W Contrast (10/11/2023 10:12 AM COMPUTER ARCHITECT) Anatomical Region Laterality Modality Body N/A Computed Tomogra phy 10/11/2023 11:0 3 AM COMPUTER ARCHITECT Impressions 10/11/2023 11:03 AM COMPUTER ARCHITECT A 12 x 12 mm pulmonary nodule in the lateral aspect of the right costophrenic sulcus, new since 2019, is suspicious for primary lung malignancy. Electronically signed by: Jayshree Giles MD, Ph.D Narrative 10/11/2023 11:03 AM COMPUTER ARCHITECT EXAMINATION: Computed tomography of chest/abdomen/pelvis with intravenous [...] Recently Relevant to Health [place] [address] [employer] [place] [address] [employer] OOS MEDICARE [employer] MEDIC[employer] PPO IDPA Advance Directives For more information, please contact: [phone] Documents on File Type Date Recorded Patient Drapery Head Former Expl anation ADVANCE DIRECTIVE 01/10/2024 3:33 PM LIVING WILL ADVANCE DIRECTIVE 01/10/2024 3:33 PM POWER OF LINE PRODUCER-MEDICAL * Full Code (Latest Code Status on [...] 5:17 PM 12/30/2019 5:42 PM Care Teams Power Brake Operator Relationship Specialty Start Date End Date Wolfgang Serrano MD [address] [place] [address] PCP - General Family Medicine 08/03/24 Wolfgang Serrano MD [address] [place] [address] Family Medicine 08/03/24 Unknown, Notinfile 03/12/22 [place] [address] [facility] [address] [place] [address] 03/12/22 Chuy Enriquez MD [address] [facility] [address] [place] [address] Consulting Physician Pulmonary Disease 10/13/23 Luis Felipe Cedillo MD [address] [facility] [address] [place] [address] Consulting Physician Gastroenterology 10/13/23 Marlene Thornton MD [address] [facility] [address], [place] [address] Surgeon Vascular Surgery 11/10/23
--- OUTSIDE RECORDS SUMMARY | 2025-01-06 12:43 | XMS_ITS | Continuity of Care Document ---
Author Organization [facility] Address [address] [place] [address] Phone Care Team Providers Care Rpg Developer Name Role Phone Grabiel SOLITARIO, Florentino Unavailable [...] Therapeutic Exercise Hot or Cold Pack Therapeutic Exercise Manual [...] Activities Manual Therapy Neuromuscular Re-Ed Therapeutic Exercise Therapeutic Exercise Manual Therapy Neuromuscular Re-Ed Electrical Stimulation Hot or Cold Pack Therapeutic Activities Neuromuscular Re-Ed Therapeutic Exercise Manual Therapy Electrical Stimulation Hot or Cold Pack Progress Note Therapeutic Activities Manual Therapy Neuromuscular Re-Ed Therapeutic Exercise Neuromuscular Re-Ed Hot or Cold Pack Therapeutic Exercise Therapeutic Activities Hot or Cold Pack Therapeutic Exercise Neuromuscular Re-Ed Electrical Stimulation Hot or Cold Pack Therapeutic Activities Neuromuscular Re-Ed Therapeutic Exercise Therapeutic Activities Hot or Cold Pack Neuromuscular Re-Ed Therapeutic Exercise PT Re-evaluation Therapeutic Activities Hot or Cold Pack Therapeutic Exercise Neuromuscular Re-Ed Therapeutic Activities Neuromuscular Re-Ed Therapeutic Exercise Neuromuscular Re-Ed Therapeutic Exercise Therapeutic Activities Progress Note Therapeutic Activities Neuromuscular Re-Ed Therapeutic Exercise Therapeutic [...] Diagnoses Date Provider Providers Copied on Encounter [facility] [address] [place] [address], [place], [place], [id number], tel:[phone] [place] No Information 2 Grabiel Florentino. . Referring Provider: George Cardenas, [address], [place], [address]. tel:[phone] [facility] [address], [place], [place], [address], tel:[phone] [place] No Information 2 Grabiel Florentino. . Referring Provider: George Cardenas, [address], [place], [address]. tel:[phone] [facility] [address], [place], [place], [id number], [place] tel:[phone] [place] No Information 2 Grabiel Florentino. . Referring Provider: George Cardenas, [address], [place], [address]. tel:[phone] [facility], [place], [place], [address], [place] tel:[phone] [place] No Information 2 Grabiel Florentino. . Referring Provider: George Cardenas, [address], [place], [address]. tel:[phone] [facility], [place], [place], [address], [place] tel:[phone] [place] No Information 2 Grabiel Florentino. . Referring Provider: George Cardenas, [address], [place], [address]. tel:[phone] [facility], [place], [place], [address], [place] tel:[phone] [place] No Information 2 Grabiel Florentino. . Referring Provider: George Cardenas, [address], [place], [address]. tel:[phone] [facility], [place], [place], [address], [place] tel:[phone] [place] No Information 2 Grabiel Florentino. . Referring Provider: George Cardenas, [address], [place], [address]. tel:[phone] [facility], [place], [place], [address], [place] tel:[phone] [place] No Information 2 Grabiel Florentino. . Referring Provider: George Cardenas, [address], [place], [address]. tel:[phone] [facility], [place], [place], [address], [place] tel:[phone] [place] No Information 2 Grabiel Florentino. . Referring Provider: George Cardenas, [address], [place], [address]. tel:[phone] [facility], [place], [place], [address], [place] tel:[phone] [place] No Information 2 Grabiel Good. . Referring Provider: George Cardenas, [address], [place], [address]. tel:[phone] [facility], [address], [place], [place], [id number], [place] tel:[phone] [place] No Information 2 Grabiel Good. . Referring Provider: George Sepulveda S, [address], [facility], [address]. tel:[phone] [facility], [facility] [address], [place], [place], [address], [place] tel:[phone] [place] No Information 2 Clarita Pizano. [address] [place] [address], [address], [place], [facility], . tel:[phone] Referring Provider: Carol Aceves, [address] [place] [address] Suite [facility], [place], [address]. tel:[phone] [place], [place] [address], [place], [place], [address], [place] tel:[phone] [place] No Information 2 Clarita Pizano. [address] [place] [address], [address], [place], [facility], [place]. tel:[phone] Referring Provider: Carol Aceves, [address] [place] [address] Suite [facility], [place], [address]. tel:[phone] [facility] [address], [place], [id number], [place] tel:[phone] [place] No Information 2 Denisa Casas . Referring Provider: Carol Aceves, [address] [facility] Suite [facility], [place], [address]. tel:[phone] [facility] [address], [place], [place], [address], [place] tel:[phone] [place] No Information 2 Denisa Parada. . Referring Provider: Carol Aceves, [address] [place] [address] Suite [facility], [place], [facility]. tel:[phone] [place] [address], [place], [place], [address], tel:[phone] [place] No Information 0 2 Denisa Parada. . Referring Provider: Carol Aceves, [address] [place] [address], [place], [facility]. tel:[phone] [place] [address], [place], [place], [address], tel:[phone] [place] No Information 0 2 Muehl Harinder. [address] [place] [address], [address], [place], [facility], . tel:[phone] Referring Provider: Carol Aceves, [address] [place] [address], [place], [facility]. tel:[phone] [place] [address], [place], [place], [id number], tel:[phone] [place] No Information February- 2 Muehl Harinder. [address] [place] [address], [address], [place], [facility], . tel:[phone] Referring Provider: Carol Aceves, [address] [place] [address], [place], [facility]. tel:[phone] [place] [address], [place], [place], [id number], tel:[phone] [place] No Information 2 Muehl Harinder. [address] [place] [address], [address], [place], [facility], . tel:[phone] Referring Provider: Carol Aceves, [address] [place] [address] [address] [facility], [place], [facility]. tel:[phone] [place] [address], [place], [place], [address], tel:[phone] [place] No Information 2 Muehl Harinder. [address] [place] [address], [address], [place], [facility], . tel:[phone] Referring Provider: Carol Aceves, [address] [place] [address] Suite [facility], [place], [facility]. tel:[phone] [address], [place], [place], [address], tel:[phone] [place] No Information 2 Essner Tal. . Referring Provider: Carol Aceves [address] [place] [address] [address] [facility], [place], [facility]. tel:[phone] [address] [address], [place], [place], [id number], tel:[phone] [place] No Information 2 Muehl Harinder. [address] [place] [address], [address], [place], [facility], . tel:[phone] Referring Provider: Carol Aceves, [address] [place] [address] Suite [facility], [place], [facility]. tel:[phone] [address] [address], [place], [place], [address], tel:[phone] [place] No Information 0 2 Muehl Harinder. [address] [place] [address], [address], [place], [facility], . tel:[phone] Referring Provider: Carol Aceves, [address] [facility] Suite [facility], [place], [address]. tel:[phone], [id number], tel:[phone] [place] No Information 2 Muehl Harinder. [address] [place] [address], [address], [place], [facility], . tel:[phone] Referring Provider: Carol Aceves, [address] [place] [address], [place], [address]. tel:[phone] [place] [address], [address] [facility] [address], [place], [place], [address], [place] tel:[phone] [place] No Information 2 Modglin Tre. . Referring Provider: Carol Aceves, [address] [place] [address], [place], [address]. tel:[phone] [place] [address], [address] [facility] [address], [place], [place], [address], [place] tel:[phone] [place] No Information 2 Niederhoffer Fernanda. . Referring Provider: Carol Aceves, [address] [place] [address], [place], [address]. tel:[phone] [place] [address], [address] [place] [address], [place], [place], [address], [place] tel:[phone] [place] No Information 2 Niederhoffer Fernanda. . Referring Provider: Carol Aceves, [address] [place] [address], [place], [address]. tel:[phone] [facility] [address] [address], [place], [place], [address], [place] tel:[phone] [place] No Information 2 Niederhoffer Fernanda. . Referring Provider: Carol Aceves, [address] [place] [address], [place], [address]. tel:[phone] [facility] [address] [place] [address] [address], [place], [place], [address], [place] tel:[phone] [place] No Information 0 2 Yuval Foote. [address] [place] [address], [address], [place], [facility], [place]. tel:[phone] Referring Provider: Carol Aceves, [address] [place] [address], [place], [address]. tel:[phone] [place] [address], [address] [place] [address] [address], [place], [place], [id number], tel:[phone] [place] No Information Apr-0 4-202 2 Muehl Harinder. [address] [place] [address], [address], [place], [facility], . tel:[phone] Referring Provider: Carol Aceves, [address] [place] [address] Suite [facility], [place], [facility]. tel:[phone] [place] [address] [address], [place], [place], [address], tel:[phone] [place] No Information Mar-3 0-202 2 Muehl Harinder. [address] [place] [address], [address], [place], [facility], . tel:[phone] Referring Provider: Carol Aceves, [address] [place] [address] Suite [facility], [place], [facility]. tel:[phone] [place] [address], [id number], tel:[phone] [place] No Information Mar-2 8-202 2 Muehl Harinder. [address] [place] [address], [address], [place], [facility], . tel:[phone] Referring Provider: Carol Aceves, [address] [place] [address] Suite [facility], [place], [facility]. tel:[phone] [place] [address], [id number], tel:[phone] [place] No Information Mar-2 4-202 2 Muehl Harinder. [address] [place] [address], [address], [place], [facility], . tel:[phone] Referring Provider: Carol Aceves, [address] [place] [address] [place] [address], [facility]. tel:[phone], [id number], tel:[phone] [place] No Information Mar-2 2-202 2 Muehl Harinder. [address] [place] [address], [address], [place], [facility], [place]. tel:[phone] Referring Provider: Carol Aceves, [address] [facility] [address] [facility], [place], [address]. tel:[phone] [facility], [address] [place] [address], [place], [place], [address], [place] tel:[phone] [place] No Information Mar-1 2 Muehl Harinder. [address] [place] [address], [address], [place], [facility], [place]. tel:[phone] Referring Provider: Carol Aceves, [address] [facility] [address] [facility], [place], [address]. tel:[phone] [address], [place], [place], [address], tel:[phone] [place] No Information Mar-1 2 Muehl Harinder. [address] [place] [address], [address], [place], [facility], [place]. tel:[phone] Referring Provider: Carol Aceves, [address] [facility] [address] [facility], [place], [address]. tel:[phone] [address] [address], [place], [place], [address], [place] tel:[phone] [place] No Information Mar-1 - 2 Muehl Harinder. [address] [place] [address], [address], [place], [facility], [place]. tel:[phone] Referring Provider: Carol Aceves, [address] [facility] [address] [facility], [place], [address]. tel:[phone] [address] [address], [place], [place], [address], tel:[phone] [facility] No Information Mar-0 4-202 2 Tom Amezcua. . Referring Provider: George Sepulveda S, [address], [place], [address]. tel:[phone] [facility], [place], [place], [address], [place] tel:[phone] [facility] No Information 0 2 Makler Luke. . Referring Provider: George Cardenas, [address], [place], [address]. tel:[phone] [facility], [place], [address], [place] tel:[phone] [facility] No Information b-2 2 Makler Luke. . Referring Provider: George Cardenas, [address], [place], [address]. tel:[phone] [facility], [place], [place], [address], [place] tel:[phone] [facility] No Information Nov- 2 Makler Luke. . Referring Provider: George Cardenas, [address], [place], [address]. tel:[phone] [facility], [place], [address], [place] tel:[phone] [facility] No Information Nov- 2 Makler Luke. . Referring Provider: George Cardenas, [address], [place], [address]. tel:[phone] [facility], [place], [address], [place] tel:[phone] [facility] No Information Nov- 2 Makler Luke. . Referring Provider: George Cardenas, [address], [place], [address]. tel:[phone] [facility], [place], [place], [address], [place] tel:[phone] [place] Pain in right kneeEffusion, right kneeMuscle weakness (generalized) Stiffness of right knee, not elsewhere classifiedUns pecified abnormalities of gait and mobility Feb-1 9-201 9 Muehl Harinder. [address] [place] [address], [address], [place], [facility], . tel:[phone] Referring Provider: Jossie Montalvo, [address] [facility] [address], [place], [address]. tel:[phone] [address], [place], [place], [address], [place] tel:[phone] [place] Pain in right kneeEffusion, right kneeMuscle weakness (generalized) Stiffness of right knee, not elsewhere classifiedUns pecified abnormalities of gait and mobility Feb-1 5-201 9 Muehl Harinder. [address] [place] [address], [address] [place] [address], [place], [facility], [place]. tel:[phone] Referring Provider: Jossie Montalvo, [address] [facility] [address], [place], [address]. tel:[phone] [facility] [address], [place], [place], [address], [place] tel:[phone] [place] Pain in right kneeEffusion, right kneeMuscle weakness (generalized) Stiffness of right knee, not elsewhere classifiedUns pecified abnormalities of gait and mobility Feb-1 2-201 9 Threlkeld Jacquie. . Referring Provider: Jossie Montalvo, [address] [address], [place], [address]. tel:[phone] [facility] [address], [place], [place], [address], [place] tel:[phone] [place] Pain in right kneeEffusion, right kneeMuscle weakness (generalized) Stiffness of right knee, not elsewhere classifiedUns pecified abnormalities of gait and mobility Feb-0 7-201 9 Muehl Harinder. [address] [place] [address], [address], [place], [facility], [place]. tel:[phone] Referring Provider: Jossie Montalvo, [address] [address], [place], [address]. tel:[phone] [facility] [address], [place], [place], [address], [place] tel:[phone] [place] Pain in right kneeEffusion, right kneeMuscle weakness (generalized) Stiffness of right knee, not elsewhere classifiedUns pecified abnormalities of gait and mobility 0 9 Muehl Harinder. [address] [facility], [address], [place], [address], [place]. tel:[phone] Referring Provider: Jossie Montalvo, [address] [address], [place], [address]. tel:[phone] [facility] [address] [facility], [place], [address], [place] tel:[phone] [place] Pain in right kneeEffusion, right kneeMuscle weakness (generalized) Stiffness of right knee, not elsewhere classifiedUns pecified abnormalities of gait and mobility 9 Muehl Harinder. [address] [place] [address], [address], [place], [address], [place]. tel:[phone] Referring Provider: Jossie Montalvo, [address] [address], [place], [address]. tel:[phone] [facility] [address] [facility], [place], [place], [address], [place] tel:[phone] [place] Pain in right kneeEffusion, right kneeMuscle weakness (generalized) Stiffness of right knee, not elsewhere classifiedUns pecified abnormalities of gait and mobility 9 Muehl Harinder. [address] [facility], [address], [place], [address], [place]. tel:[phone] Referring Provider: Jossie Montalvo, [address] [address], [place], [address]. tel:[phone] [facility] [facility], [place], [place], [address], [place] tel:[phone] [place] Pain in right kneeEffusion, right kneeMuscle weakness (generalized) Stiffness of right knee, not elsewhere classifiedUns pecified abnormalities of gait and mobility 9 Muehl Harinder. [address] [facility], [address], [place], [facility], [place]. tel:[phone] Referring Provider: Jossie Montalvo, [address] [facility] [address], [place], [address]. tel:[phone] [address], [place], [place], [address], tel:[phone] [place] Pain in right kneeEffusion, right kneeMuscle weakness (generalized) Stiffness of right knee, not elsewhere classifiedUns pecified abnormalities of gait and mobility Sep- 8 Muehl Harinder. [address] [facility], [facility] [address], [place], [address], [place]. tel:[phone] Referring Provider: Jossie Montalvo, [address] [facility] [address], [place], [address]. tel:[phone] [facility] [address], [place], [place], [address], [place] tel:[phone] [place] Pain in right kneeEffusion, right kneeMuscle weakness (generalized) Stiffness of right knee, not elsewhere classifiedUns pecified abnormalities of gait and mobility Sep- 8 Maddie Chavez . Referring Provider: Jossie Montalvo, [address] [facility] [address], [place], [address]. tel:[phone] [facility] [address] [facility], [place], [place], [address], [place] tel:[phone] [place] Pain in right kneeEffusion, right kneeMuscle weakness (generalized) Stiffness of right knee, not elsewhere classifiedUns pecified abnormalities of gait and mobility Sep-2 8 Muehl Harinder. [address] [facility], [address], [place], [address], [place]. tel:[phone] Referring Provider: Jossie Montalvo, [address] [facility] [address], [place], [address]. tel:[phone] [facility], [address] [facility], [place], [place], [address], [place] tel:[phone] [place] Pain in right kneeEffusion, right kneeMuscle weakness (generalized) Stiffness of right knee, not elsewhere classifiedUns pecified abnormalities of gait and mobility 0201 8 Clarita Pizano. [address] [facility], [address], [place], [address], [place]. tel:[phone] Referring Provider: Jossie Montalvo [address], [place], [address]. tel:[phone] Family History Family Member Type Diagnosis Age At Onset No Information Payers Payer name Insurance type Covered constitution party ID Katarzyna johnson(s) [facility] [id number] [facility] [id number] Social History Type Description Quantity Date Captured [...]
--- NOTE | 2025-01-06 13:20 | ECG_ITS ---
Test Date: 2025-01-06 13:57:50 Measurements Intervals [place] Rate: 69 P: 70 [place]: 164 QRS: 86 QRSD: 97 T: 147 QT: 441 QTc: 475 Interpretive Statements SINUS RHYTHM WITH FREQUENT VENTRICULAR PREMATURE COMPLEXES ST DEVIATION AND MODERATE T-WAVE ABNORMALITY, CONSIDER LATERAL ISCHEMIA [-0.1+ mV T WAVE IN I/aVL/V5/V6] ABNORMAL ECG Compared to ECG 09/05/2024 12:57:24 T-wave abnormality now present Possible ischemia now present Electronically Signed On 01-06-2025 15:44:00 CDT by Tyrel Diaz M.D.
[2025-01-06 13:40] LABS: Basophils Percent Auto 0.1 % (0.2-1.2); Eosinophils Percent Auto 0.1 % (0-4.4); Hematocrit 43.1 % (42.0-52.0); Immature Granulocyte Absolute 0.09 K/mm3 (0.00-0.031); Immature Granulocyte Percent A 0.6 % (0-0.5); Lymphocytes Absolute Auto 1.38 K/mm3 (0.9-3.2); Lymphocytes Percent Auto 9.2 % (18.3-44.2); Mean Corpuscular HGB Conc 32.5 g/dl (32-36); Mean Corpuscular Hemoglobin 31.1 pg (26-34); Mean Corpuscular Volume 95.8 fl (80-100); Mean Platelet Volume 10.8 fl (7.4-10.4); Monocytes Absolute Auto 1.5 K/mm3 (0.1-0.6); Neutrophils Absolute Auto 12.1 K/mm3 (1.3-6.7); Platelet Count Result 220 k/mm3 (150-375); Red Cell Distribution Width 21.5 % (11.5-14.5); White Blood Count 15.1 K/mm3 (4.5-10.0)
[2025-01-06 13:49] LABS: Prothrombin Time 13.6 Seconds (11.1-14.7)
[2025-01-06 13:50] LABS: Partial Thromboplastin Time 30.9 Seconds (22.3-36.8)
[2025-01-06 13:53] LABS: Alanine Aminotransferase 64 U/L (6-50); Albumin Level 4.1 g/dL (3.5-5.1); Alkaline Phosphatase 100 U/L (38-126); Anion Gap 7 mmol/L (4-12); Aspartate Amino Transferase 351 U/L (17-59); Bilirubin,Total 0.5 mg/dL (0.2-1.3); Blood Urea Nitrogen 19 mg/dL (9-20); Calcium 9.4 mg/dL (8.4-10.2); Carbon Dioxide 33 mmol/L (22-30); Chloride 102 mmol/L (98-107); Estimated CRCL calculation 48 ml/min; Estimated Glomerular Filt Rate > 60; Glucose 124 mg/dL (65-110); Lipase 29 U/L (23-300); Sodium 142 mmol/L (137-145)
[2025-01-06] MEDS: MAG HYDROX/AL HYDROX/SIMETH 30 ML UDC PO (13:58)
[2025-01-06] MEDS: MORPHINE SULFATE (*CRX) 4 MG/ML INJ 2 MG IV PUSH (14:11)
[2025-01-06] MEDS: ONDANSETRON INJ 4 MG/2 ML VIAL IV PUSH (14:11)
[2025-01-06] MEDS: SODIUM CHLORIDE 0.9% IV 1,000 ML 999 ML IV CONT (14:12)
--- NOTE | 2025-01-06 16:10 | P.HP_ITS ---
H&P: HPI History of Present Illness Date/Time: 01/06/25 16:10 Chief Complaint: Nausea, vomiting, chest pain. Narrative: This is a pleasant 79-year-old male with history of stroke with resultant mild memory loss and left upper extremity weakness, infrarenal abdominal aortic aneurysm with penetrating ulcer measuring 3.0 cm in September 2023, diastolic dysfunction, hypertension, hyperlipidemia, hypothyroidism, esophageal stricture status post dilatation, gastroesophageal reflux disease, Noemy fundoplication, and arthritis who presented to the emergency department via private vehicle with complaints of nausea, vomiting, and chest pain. Yesterday afternoon, not long after he finished therapy, he developed a sharp and stabbing pain in the left anterior chest radiating to the right shoulder with associated symptoms include nausea, vomiting, and sweats. He has felt more fatigued since that time and continues to have intermittent chest pain. He has not noticed any significant aggravating or alleviating factors and denies that his symptoms are worse with exertion. He has frequent heartburn, bloating, and belching and this is unchanged. He denies syncope, near syncope, cold and flu symptoms, pleuritic pa in, palpitations, edema, abdominal pain, diarrhea, hematemesis, melena, hematochezia, and dysuria. In the ED: Vital signs were stable on arrival blood pressure was a bit elevated 146/92. Labs are significant for a WBC count of 15.1, carbon dioxide 33, glucose 124, AST 351, ALT 64, troponin 56.800, lipase 29. Chest x-ray showed no focal infiltrate or effusion and a large hiatal hernia. Hepatic cyst was seen on right upper quadrant ultrasound. EKG shows sinus rhythm with frequent PVCs and ST deviation and moderate ST T-wave abnormalities in the lateral leads. He has been started on a heparin drip and was admitted to the IMU in this setting for close monitoring and Cardiology consultation. Shortly after admission to the IMU, he developed worsening chest pain and telemetry showed some cardiac instability with frequent ectopy. Dr. Caban was consulted and he spoke with sales rep and their plans to go to the analytical laboratory technician tonight. Review of Systems Review of Systems: 12 systems were reviewed and are negativ e except for as per HPI. FOR[facility]LY [facility], LATER [facility] Past Medical History Medical History (Updated 01/06/25 @ 19:16 by Jenna Willams PA-C) Overactive bladder Aneurysm of infrarenal abdominal aorta Dyslipidemia 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 Seizure x2 in 1997 Benign prostatic hyperplasia Esophageal stricture Gastroesophageal reflux Hypothyroidism Esophageal diverticulum, acquired Colon polyp Arthritis Diverticulosis Anemia Diverticulitis Myasthenia gravis patient denies Surgical History Surgical History History of arthroplasty of right knee History of Noemy fundoplication History of thyroidectomy Status post dilatation of esophageal stricture Family History Family History Mother , age 85 Acute myocardial infarction Hypertension Heart disease Father , age 70 Acute myocardial infarction Chronic obstructive pulmonary disease History of blood clots Hypertension Heart disease Sibling Acute myocardial infarction Hypertension Heart disease Other Heart disease Social History Social History (Updated 01/06/25 @ 19:14 by Jenna Willams PA-C) Social History: Surrogate medical decision maker: Alon Gtz, spouse. Code status: Full code. Smoking packs per day: 1 Smoking cigarettes per day: 20.0 Years smoked: 4 Smoking pack-years: 4.00 Smoking status: Former smoker Alcohol intake: current Drinks per week: 1 Substance use: never Substance use type: does not use Do You Feel Safe in your Home?: Yes Lack of Transportation: No Lack of Food: Never True Current Housing: I Have Housing Concerned About Future Housing: No Difficulty Paying Gas/Electric Bills: No Difficulty Paying for Meds: No Currently Unemployed: No Education: Decline to Answer Difficulty w/ Childcare or Family Care: No Living arrangements: with family Additional living arrangements comments: Lives in [place] with his spouse. They have 3 children. 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 Spiritual care concerns: No Meds Home Medications and Allergies Home Medications ?Medication ?Instructions ?Recorded ?Confirmed ?Type furosemide 20 mg tablet (Lasix) 20 mg PO DAILY 08/13/23 01/06/25 History gabapentin 100 mg capsule 600 mg PO TID 08/13/23 01/06/25 History tizanidine 2 mg tablet 2 mg PO Q8H PRN Muscle Pain 08/13/23 01/06/25 History melatonin 10 mg tablet 10 mg PO HS PRN Sleep 10/10/23 01/06/25 History oxybutynin chloride 15 mg 15 mg PO HS 10/10/23 01/06/25 History tablet,extended release 24 hr cholecalciferol (vitamin D3) 50 50 mcg PO DAILY 11/09/23 01/06/25 History mcg (2,000 unit) capsule donepezil 10 mg tablet 10 mg PO QHS 11/09/23 01/06/25 History levothyroxine 150 mcg capsule 150 mcg PO DAILY 11/09/23 01/06/25 History aspirin 81 mg chewable tablet 81 mg PO DAILY 01/26/24 01/06/25 History cetirizine 10 mg tablet 10 mg PO DAILY 01/26/24 01/06/25 History clobetasol 0.05 % topical ointment 1 applic topical BID PRN rash 01/26/24 01/06/25 History rosuvastatin 40 mg tablet 40 mg PO DAILY 01/26/24 01/06/25 History spironolactone 25 mg tablet 25 mg PO DAILY 01/26/24 01/06/25 History pantoprazole 40 mg tablet,delayed 40 mg PO BID #60 tabs 02/02/24 01/06/25 Rx release mometasone 0.1 % topical ointment 1 applic topical DAILY PRN itching 08/26/24 01/06/25 Rx #45 grams ferrous sulfate 325 mg (65 mg 325 mg PO BID 01/06/25 01/06/25 History iron) tablet (FeroSul) mirabegron 25 mg tablet,extended 25 mg PO DAILY 01/06/25 01/06/25 History release 24 hr (Myrbetriq) tamsulosin 0.4 mg capsule 0.4 mg PO HS 01/06/25 01/06/25 History Allergies Allergy/AdvReac Type Severity Reaction Status Date / Time No Known Allergies Allergy Verified 01/06/25 13:47 Vital Signs Vital Signs - 24 hr 01/06/25 10:50 01/06/25 13:47 01/06/25 14:12 Temperature 97.4 F L Pulse Rate 68 69 74 Respiratory Rate 16 14 16 Blood Pressure 146/92 H 145/86 H 139/97 H Pulse Oximetry 100 99 99 Exam Narrative: General: Mildly ill-appearing elderly gentleman sitting up in bed in no acute distress. Weight: 85 kg. BMI: 26.9. HEENT: PERRL, EOMI. Sclera anicteric. Oral mucosa moist. Neck: Supple. Respiratory: Lungs are clear to auscultation bilaterally. Cardiovascular: Regular rate and rhythm with S1-S2. Chest: No tenderness to palpation over the chest wall. Gastrointestinal: Abdomen is soft, nontender, and nondistended with positive bowel sounds. Skin: Warm and dry. No rash or lesions on limited exam. Extremities: No cyanosis, clubbing, or edema. Radial and pedal pulses intact. Neurological: Alert. Cranial nerves 2-12 are grossly intact. Left upper extremity is weak from prior stroke with mild left lower extremity weakness as well. Psychiatric: Pleasant and cooperative with normal mood and affect. Judgment and insight intact. H&P: Results Labs Labs: Short CBC 01/06/25 Range/Units 13:34 WBC 15.1 H (4.5-10.0) K/mm3 Hgb 14.0 (14.0-18.0) g/dL Hct 43.1 (42.0-52.0) % Plt Count 220 (150-375) k/mm3 BMP 01/06/25 13:34 Sodium 142 Potassium 4.0 Chloride 102 Carbon Dioxide 33 H BUN 19 Creatinine 1.13 Glucose 124 H Calcium 9.4 Cardiac Enzymes 01/06/25 Range/Units 13:34 Troponin I 56.800 H* (0.000-0.034) ng/mL Liver Function 01/06/25 Range/Units 13:34 Total Bilirubin 0.5 (0.2-1.3) mg/dL AST 351 H (17-59) U/L ALT 64 H (6-50) U/L Alkaline Phosphatase 100 (38-126) U/L Albumin 4.1 (3.5-5.1) g/dL Imaging Upper Quadrant Ultrasound 01/06/25 15:11 IMPRESSION: Hepatic cyst. No additional abnormalities detected. Chest X-Ray 01/06/25 15:46 IMPRESSION: No focal infiltrate or effusion. Large hiatal hernia redemonstrated. Assessment and Plan Assessment and plan (1) Non-ST elevation myocardial infarction (NSTEMI): Code(s): I21.4 - Non-ST elevation (NSTEMI) myocardial infarction Status: Acute (2) Elevated LFTs: Code(s): R79.89 - Other specified abnormal findings of blood chemistry Status: Acute (3) Dyslipidemia: Code(s): E78.5 - Hyperlipidemia, unspecified Status: Acute (4) Hypothyroidism: Code(s): E03.9 - Hypothyroidism, unspecified Status: Acute (5) Overactive bladder: Code(s): N32.81 - Overactive bladder Status: Acute Plan The patient presented to the emergency department with complaints of nausea, vomiting, and chest pain for the last 24 hours as detailed in HPI. Labs, imaging, EKG, and all reports were personally reviewed. EKG shows findings of ischemia in the lateral leads and his initial troponin was markedly elevated at 56.800. He has been started on a heparin drip and will be NPO after midnight for possible cardiac catheterization tomorrow. Echocardiogram has been ordered. Dr. Caban, the patient's cardiographer, was consulted by the ED physician and his input is appreciated. Elevated AST >> ALT is likely due to myocardial infarction and should trend down over the next couple of days. Blood pressures are stable. Continue levothyroxine and check TSH. The rest of his home medications will be reviewed and resumed as appropriate. Findings and treatment plan were discussed with the patient. Questions were solicited and answered to satisfaction. The patient's medical management will be taken over by the hospitalist team in a.m. Quality VTE Prophylaxis VTE prophylaxis: pharmacologic ordered (on heparin drip) Hospitalist [facility] Advance Care Plan I have confirmed that the patient's Advanced Care Plan is present, code status is documented, or surrogate decision maker is listed in patient medical record.: Yes Medication Reconciliation I have utilized all available resources to obtain, update and review the patients current medications (includes all prescriptions, OTC, herbals, cannabis, and nutritional supplements).: Yes
--- NOTE | 2025-01-06 16:13 | ED.GENADULT ---
HPI - General Adult General Chief complaint: Nausea/Vomiting/Diarrhea Stated complaint: N/V Time Seen by Provider: 01/06/25 12:36 History of Present Illness HPI narrative: Patient is an 79-year-old male who presents ER with nausea vomiting as well as chest pain. Reports symptoms began yesterday. He had finished therapy around 4:00 a.m. started developing nausea vomiting. He developed chest pain after that. Is left-sided moves to his right shoulder. Denies history of MT. No diarrhea. Reports mild upset stomach. Has felt weak since this happened. Denies exertional component. Related Data Home Medications ?Medication ?Instructions ?Recorded ?Confirmed ?Last Taken ?Type furosemide 20 mg tablet (Lasix) 20 mg PO DAILY 08/13/23 01/04/25 02/01/24 History gabapentin 100 mg capsule 600 mg PO TID 08/13/23 01/04/25 02/01/24 History tizanidine 2 mg tablet 2 mg PO Q8H PRN Muscle Pain 08/13/23 01/04/25 02/02/24 08:00 History melatonin 10 mg tablet 10 mg PO HS PRN Sleep 10/10/23 01/04/25 02/01/24 History oxybutynin chloride 15 mg 15 mg PO HS 10/10/23 01/04/25 02/01/24 History tablet,extended release 24 hr cholecalciferol (vitamin D3) 50 50 mcg PO DAILY 11/09/23 01/04/25 02/01/24 History mcg (2,000 unit) capsule donepezil 10 mg tablet 10 mg PO QHS 11/09/23 01/04/25 02/01/24 History levothyroxine 150 mcg capsule 150 mcg PO DAILY 11/09/23 01/04/25 02/02/24 08:00 History albuterol sulfate 90 mcg/actuation 1 puff inhalation BID 01/26/24 01/04/25 02/01/24 History aerosol inhaler aspirin 81 mg chewable tablet 81 mg PO DAILY 01/26/24 01/04/25 02/01/24 History cetirizine 10 mg tablet 10 mg PO DAILY 01/26/24 01/04/25 02/01/24 History clobetasol 0.05 % topical ointment 1 applic topical BID 01/26/24 01/04/25 02/01/24 History fluticasone propionate 230 2 puff inhalation DAILY 01/26/24 01/04/25 02/01/24 History mcg-salmeterol 21 mcg/actuation HFA inhaler (Advair HFA) fluticasone propionate 44 2 puff inhalation BID 01/26/24 01/04/25 02/01/24 History mcg/actuation HFA aerosol inhaler rosuvastatin 40 mg tablet 40 mg PO DAILY 01/26/24 01/04/25 02/01/24 History spironolactone 25 mg tablet 25 mg PO DAILY 01/26/24 01/04/25 02/01/24 History Allergies Allergy/AdvReac Type Severity Reaction Status Date / Time No Known Allergies Allergy Verified 01/06/25 13:47 Review of Systems Review of Systems: All systems reviewed & are unremarkable except as noted in HPI and below Constitutional: Constitutional: Reports no additional constitutional complaints Cardiovascular: Cardiovascular: Reports no additional cardiovascular complaints Respiratory: Respiratory: Reports no additional respiratory complaints Gastrointestinal: Gastrointestinal: Reports no additional gastrointestinal complaints Musculoskeletal: Musculoskeletal: Reports no additional musculoskeletal complaints [facility] Past Medical History Medical History (Updated 01/06/25 @ 17:25 by Rehan Wells MD) Dyslipidemia Cerebrovascular accident resultant left-sided weakness Seizure x2 in 1997 Benign prostatic hyperplasia Esophageal stricture Gastroesophageal reflux Hypothyroidism Esophageal diverticulum, acquired Colon polyp Arthritis Dementia Diverticulosis Anemia Diverticulitis Myasthenia gravis Surgical History Surgical History (Updated 01/06/25 @ 16:20 by Jenna Willams PA-C) History of arthroplasty of right knee History of Noemy fundoplication History of thyroidectomy Status post dilatation of esophageal stricture Family History Family History Mother , age 85 Acute myocardial infarction Hypertension Heart disease Father , age 70 Acute myocardial infarction Chronic obstructive pulmonary disease History of blood clots Hypertension Heart disease Sibling Acute myocardial infarction Hypertension Heart disease Other Heart disease Social History Social History (Updated 01/06/25 @ 16:21 by Jenna Willams PA-C) Social History: Surrogate medical decision maker: Code status: Full code. Smoking packs per day: 1 Smoking cigarettes per day: 20.0 Years smoked: 4 Smoking pack-years: 4.00 Smoking status: Former smoker Alcohol intake: never Drinks per week: 2 Substance use: never Substance use type: does not use Do You Feel Safe in your Home?: Yes Lack of Transportation: No Lack of Food: Never True Current Housing: I Have Housing Concerned About Future Housing: No Difficulty Paying Gas/Electric Bills: No Difficulty Paying for Meds: No Currently Unemployed: No Education: Bachelor's Degree Difficulty w/ Childcare or Family Care: No Living arrangements: with family Additional living arrangements comments: Lives in [place]. Has 3 children. 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 Spiritual care concerns: No Exam Narrative: GENERAL: Well-appearing, well-nourished, and in no acute distress. HEAD: Normocephalic, atraumatic. ENT: Mucous membranes moist. NECK: Supple. CHEST: Clear to auscultation. No respiratory distress. HEART: Regular rate and rhythm. Normal peripheral pulses. ABDOMEN: Soft, nontender, nondistended. EXTREMITIES: Normal range of motion. No edema. SKIN: Warm, dry, no rash. NEURO: Mild left-sided deficits residual from previous CVA bleeding arm weakness and facial weakness. Alert and oriented x3. PSYCH: Normal mood and affect. Course Course Emergency Course: Patient informed of lab and EKG results. Patient will be started on heparin for non ST elevation MT. His alodize machine helper Dr. Caban has been consulted. Admit to the hospitalist service. Vital Signs Vital signs: Vital Signs Temperature 97.4 F L 01/06/25 10:50 Pulse Rate 68 01/06/25 10:50 Respiratory Rate 16 01/06/25 10:50 Blood Pressure 146/92 H 01/06/25 10:50 Pulse Oximetry 100 01/06/25 10:50 Temperature 97.4 F L 01/06/25 10:50 Pulse Rate 66 01/06/25 17:12 Respiratory Rate 20 01/06/25 16:45 Blood Pressure 152/91 H 01/06/25 16:45 Pulse Oximetry 99 01/06/25 16:45 Medical Decision Making Vital Signs Vital Signs: Vital Signs Temperature 97.4 F L 01/06/25 10:50 Pulse Rate 68 01/06/25 10:50 Respiratory Rate 16 01/06/25 10:50 Blood Pressure 146/92 H 01/06/25 10:50 Pulse Oximetry 100 01/06/25 10:50 Temperature 97.4 F L 01/06/25 10:50 Pulse Rate 66 01/06/25 17:12 Respiratory Rate 20 01/06/25 16:45 Blood Pressure 152/91 H 01/06/25 16:45 Pulse Oximetry 99 01/06/25 16:45 Lab Data 01/06/25 13:34 01/06/25 13:34 Labs: Lab Results 01/06/25 01/06/25 01/06/25 Range/Units 13:34 13:34 16:26 WBC 15.1 H (4.5-10.0) K/mm3 RBC 4.50 L (4.6-6.20) M/mm3 Hgb 14.0 (14.0-18.0) g/dL Hct 43.1 (42.0-52.0) % MCV 95.8 (80-100) fl MCH 31.1 (26-34) pg MCHC 32.5 (32-36) g/dl RDW 21.5 H (11.5-14.5) % Plt Count 220 (150-375) k/mm3 MPV 10.8 H (7.4-10.4) fl Immature Gran % (Auto) 0.6 H (0-0.5) % Neut % (Auto) 80.0 H (45.5-73.1) % Lymph % (Auto) 9.2 L (18.3-44.2) % [place] % (Auto) 10.0 H (2.6-8.5) % Eos % (Auto) 0.1 (0-4.4) % Baso % (Auto) 0.1 L (0.2-1.2) % Lymph # (Auto) 1.38 (0.9-3.2) K/mm3 [place] # (Auto) 1.5 H (0.1-0.6) K/mm3 Eos # (Auto) 0.0 (0-0.3) K/mm3 Baso # (Auto) 0.0 (0.0-0.1) K/mm3 Abs Immat Gran (auto) 0.09 H (0.00-0.031) K/mm3 Absolute Neuts (auto) 12.1 H (1.3-6.7) K/mm3 Absolute Nucleated RBC 0.000 (0.0-0.012) K/mm3 Nucleated RBC % 0.0 (0.0-0.2) % PT 13.6 (11.1-14.7) Seconds INR 1.0 APTT 30.9 (22.3-36.8) Seconds Sodium 142 (137-145) mmol/L Potassium 4.0 (3.4-5.0) mmol/L Chloride 102 (98-107) mmol/L Carbon Dioxide 33 H (22-30) mmol/L Anion Gap 7 (4-12) mmol/L BUN 19 (9-20) mg/dL Creatinine 1.13 (0.7-1.3) mg/dL Estim Creat Clear Calc 48 ml/min Estimated GFR > 60 (59 - ) Glucose 124 H (65-110) mg/dL Calcium 9.4 (8.4-10.2) mg/dL Total Bilirubin 0.5 (0.2-1.3) mg/dL AST 351 H (17-59) U/L ALT 64 H (6-50) U/L Alkaline Phosphatase 100 (38-126) U/L Troponin I 56.800 H* 67.600 H* (0.000-0.034) ng/mL Total Protein 8.0 (6.3-8.2) g/dL Albumin 4.1 (3.5-5.1) g/dL Lipase 29 Cancelled (23-300) U/L Critical Care Time Critical Care Time Critical Care Time: Yes Total Critical Care Time: 35 Discharge Plan Discharge Clinical Impression: Non-ST elevation MT (NSTEMI) Patient Disposition: Still a Patient Condition: Serious
--- NOTE | 2025-01-06 16:16 | ECG_ITS ---
Test Date: 2025-01-06 16:27:20 Measurements Intervals [place] Rate: 66 P: 60 NC: 167 QRS: 77 QRSD: 88 T: 164 QT: 473 QTc: 499 Interpretive Statements SINUS RHYTHM ST DEVIATION AND MODERATE T-WAVE ABNORMALITY, CONSIDER LATERAL ISCHEMIA [-0.1+ mV T WAVE IN I/aVL/V5/V6] BASELINE ARTIFACT GREATLY LIMITS INTERPRETATION ABNORMAL ECG Compared to ECG 01/06/2025 13:57:50 Ventricular premature complex(es) no longer present T-wave abnormality still present Possible ischemia still present Electronically Signed On 01-07-2025 07:37:18 CDT by Tyrle Diaz M.D.
[2025-01-06] MEDS: HEPARIN SODIUM 5,000 UNITS/ML VIAL 4000 UNITS IV PUSH (16:19)
[2025-01-06] MEDS: HEPARIN SOD/D5W 100 UNITS/ML 25,000 UNITS/250 ML BAG 10 UNITS IV CONT (16:21)
--- NOTE | 2025-01-06 16:37 | P.CONCA_ITS ---
Assessment and Plan Assessment and plan (1) Non-ST elevation myocardial infarction (NSTEMI): Code(s): I21.4 - Non-ST elevation (NSTEMI) myocardial infarction Status: Acute Assessment and Plan: Initial troponin significantly elevated at 56.8. EKG shows ST depression in anterior leads. Control CP with NTG SL prn. Start Heparin drip and Metoprolol Succinate 25 mg daily and Losartan 25 mg daily. Continue aspirin daily. Hold Rosuvastatin due to transaminitis. Serial troponin as per protocol every 3 hours. Obtain echo. Plan for LHC on Wednesday unless hemodynamically or clinically become unstable or ST elevation on EKG. Discuss risks/benefits/alternative to LHC with patient and he is agreeable to procedure. (2) Dyslipidemia: Code(s): E78.5 - Hyperlipidemia, unspecified Status: Acute Assessment and Plan: Hold Rosuvastatin due to elevated liver enzymes. (3) AAA (abdominal aortic aneurysm): Code(s): I71.40 - Abdominal aortic aneurysm, without rupture, unspecified Status: Acute Assessment and Plan: Stable. (4) Stroke: Code(s): I63.9 - Cerebral infarction, unspecified Status: Acute History of Present Illness History of Present Illness Consult date/time: 01/06/25 16:37 Reason For Visit: N/V Narrative: 79 yr old man who is my regular cardiology patient and a patient of Dr. Serrano presents to ER with chest pain. 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 Presents with his . Spoke to his son and god daughter who is a doctor over the phone. Reports he was resting at home and around 3 pm he had sudden onset sharp chest pain radiating from left chest to right shoulder and it is constant and currently 5/10 in intensity, had associated sob and diaphoresis. He drinks about 2-3 bottles of Propel a day. He used to be limited at walking very short distance due to BEGUM. Denies orthopnea, PND, edema, dizziness, palpitations. He had a stroke on 12/08/23 with left sided weakness/paralysis and went to [facility], [place]. He has left arm paralysis and left leg is weak but improving. He walks with a cane. He would like to have left knee surgery but at the time needed to be cleared by neurologist. 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 Cardiovascular Procedures Echo/MUGA:: 07/19/23 Echo: EF 60-65%, mild LVH, grade I diastolic dysfunction, mild LAE, mild MR/TR/PI, trace AI, cannot r/o AV vegetation, mod AV calcifications. Electrophysiology:: 10/10/23 EKG: Sinus rhythm, frequent PVC's. 07/24/23 EKG: Sinus rhythm, frequent PVC's. Stress Tests:: 07/10/24 Lexiscan myoview: Negative. 10/10/23 CTA chest: 3.0 cm fusiform AAA infrarenal with penetrating ulcer. 05/27/23 PFT: OK. Review of Systems 2 Constitutional: Constitutional: Reports as per HPI, Denies chills and Denies fever(s) Cardiovascular: Cardiovascular: Reports as per HPI, Reports chest pain and Denies irregular heart rhythm Respiratory: Respiratory: Reports as per HPI and Reports dyspnea Gastrointestinal: Gastrointestinal: Reports as per HPI and Denies abdominal pain Genitourinary: Genitourinary: Reports as per HPI and Denies dysuria Musculoskeletal: Musculoskeletal: Reports as per HPI Neurologic: Reports as per HPI, Denies dizziness and Denies syncope [facility] Past Medical History Medical History (Updated 01/06/25 @ 16:25 by Jenna Willams PA-C) Dyslipidemia Cerebrovascular accident resultant left-sided weakness Seizure x2 in 1997 Benign prostatic hyperplasia Esophageal stricture Gastroesophageal reflux Hypothyroidism Esophageal diverticulum, acquired Colon polyp Arthritis Dementia Diverticulosis Anemia Diverticulitis Myasthenia gravis Surgical History Surgical History (Updated 01/06/25 @ 16:20 by Jenna Willams PA-C) History of arthroplasty of right knee History of Noemy fundoplication History of thyroidectomy Status post dilatation of esophageal stricture Family History Family History Mother , age 85 Acute myocardial infarction Hypertension Heart disease Father , age 70 Acute myocardial infarction Chronic obstructive pulmonary disease History of blood clots Hypertension Heart disease Sibling Acute myocardial infarction Hypertension Heart disease Other Heart disease Social History Social History (Updated 01/06/25 @ 16:21 by Jenna Willams PA-C) Social History: Surrogate medical decision maker: Code status: Full code. Smoking packs per day: 1 Smoking cigarettes per day: 20.0 Years smoked: 4 Smoking pack-years: 4.00 Smoking status: Former smoker Alcohol intake: never Drinks per week: 2 Substance use: never Substance use type: does not use Do You Feel Safe in your Home?: Yes Lack of Transportation: No Lack of Food: Never True Current Housing: I Have Housing Concerned About Future Housing: No Difficulty Paying Gas/Electric Bills: No Difficulty Paying for Meds: No Currently Unemployed: No Education: Bachelor's Degree Difficulty w/ Childcare or Family Care: No Living arrangements: with family Additional living arrangements comments: Lives in [place]. Has 3 children. 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 Spiritual care concerns: No Meds Home Medications and Allergies Home Medications ?Medication ?Instructions ?Recorded ?Confirmed ?Type furosemide 20 mg tablet (Lasix) 20 mg PO DAILY 08/13/23 01/04/25 History gabapentin 100 mg capsule 600 mg PO TID 08/13/23 01/04/25 History tizanidine 2 mg tablet 2 mg PO Q8H PRN Muscle Pain 08/13/23 01/04/25 History melatonin 10 mg tablet 10 mg PO HS PRN Sleep 10/10/23 01/04/25 History oxybutynin chloride 15 mg 15 mg PO HS 10/10/23 01/04/25 History tablet,extended release 24 hr cholecalciferol (vitamin D3) 50 50 mcg PO DAILY 11/09/23 01/04/25 History mcg (2,000 unit) capsule donepezil 10 mg tablet 10 mg PO QHS 11/09/23 01/04/25 History levothyroxine 150 mcg capsule 150 mcg PO DAILY 11/09/23 01/04/25 History pravastatin 10 mg tablet 10 mg PO DAILY #90 tabs 12/01/23 01/04/25 Rx albuterol sulfate 90 mcg/actuation 1 puff inhalation BID 01/26/24 01/04/25 History aerosol inhaler aspirin 81 mg chewable tablet 81 mg PO DAILY 01/26/24 01/04/25 History cetirizine 10 mg tablet 10 mg PO DAILY 01/26/24 01/04/25 History clobetasol 0.05 % topical ointment 1 applic topical BID 01/26/24 01/04/25 History fluticasone propionate 230 2 puff inhalation DAILY 01/26/24 01/04/25 History mcg-salmeterol 21 mcg/actuation HFA inhaler (Advair HFA) fluticasone propionate 44 2 puff inhalation BID 01/26/24 01/04/25 History mcg/actuation HFA aerosol inhaler rosuvastatin 40 mg tablet 40 mg PO DAILY 01/26/24 01/04/25 History spironolactone 25 mg tablet 25 mg PO DAILY 01/26/24 01/04/25 History pantoprazole 40 mg tablet,delayed 40 mg PO BID #60 tabs 02/02/24 01/04/25 Rx release mometasone 0.1 % topical ointment 1 applic topical DAILY PRN itching 08/26/24 01/04/25 Rx #45 grams Allergies Allergy/AdvReac Type Severity Reaction Status Date / Time No Known Allergies Allergy Verified 01/06/25 13:47 Vital Signs Vital Signs - 24 hr 01/06/25 10:50 01/06/25 13:47 01/06/25 14:12 Temperature 97.4 F L Pulse Rate 68 69 74 Respiratory Rate 16 14 16 Blood Pressure 146/92 H 145/86 H 139/97 H Pulse Oximetry 100 99 99 Exam 2 Const: General: cooperative, healthy appearing and comfortable Resp: Auscultation: clear to auscultation bilaterally, no crackles, no rales, no rhonchi and no wheezes Cardio: Rate: regular rate Rhythm: regular rhythm Heart sounds: no murmurs Peripheral pulses: dorsalis pedis present GI: GI Palp: No abdominal tenderness and Yes Soft to palpation Neuro: General: oriented to person, oriented to place and oriented to time Extrem: Right lower extremity: no edema Left lower extremity: no edema Results Labs and Meds 01/06/25 13:34 01/06/25 13:34 Lab results: Cardiac Enzymes 01/06/25 Range/Units 13:34 AST 351 H (17-59) U/L Troponin I 56.800 H* (0.000-0.034) ng/mL Coagulation 01/06/25 Range/Units 13:34 PT 13.6 (11.1-14.7) Seconds APTT 30.9 (22.3-36.8) Seconds CBC 01/06/25 Range/Units 13:34 WBC 15.1 H (4.5-10.0) K/mm3 RBC 4.50 L (4.6-6.20) M/mm3 Hgb 14.0 (14.0-18.0) g/dL Hct 43.1 (42.0-52.0) % Plt Count 220 (150-375) k/mm3 Lymph # (Auto) 1.38 (0.9-3.2) K/mm3 [place] # (Auto) 1.5 H (0.1-0.6) K/mm3 Eos # (Auto) 0.0 (0-0.3) K/mm3 Baso # (Auto) 0.0 (0.0-0.1) K/mm3 Comprehensive Metabolic Panel 01/06/25 Range/Units 13:34 Sodium 142 (137-145) mmol/L Potassium 4.0 (3.4-5.0) mmol/L Chloride 102 (98-107) mmol/L Carbon Dioxide 33 H (22-30) mmol/L BUN 19 (9-20) mg/dL Creatinine 1.13 (0.7-1.3) mg/dL Glucose 124 H (65-110) mg/dL Calcium 9.4 (8.4-10.2) mg/dL AST 351 H (17-59) U/L ALT 64 H (6-50) U/L Alkaline Phosphatase 100 (38-126) U/L Total Protein 8.0 (6.3-8.2) g/dL Albumin 4.1 (3.5-5.1) g/dL Intake and Output 01/06/25 01/06/25 01/06/25 07:59 15:59 23:59 Intake Total 1000 Balance 1000 Intake: IV 1000 Sodium Chloride 0.9% IV 1,000 1000 ml @ 999 mls/hr IV CONT .Q1H1M STA Rx#:[id number] Patient Weight 01/06/25 23:59 Weight 85 kg
--- NOTE | 2025-01-06 17:37 | ADMGEN ---
This patient, Abrahan Gtz Jr., was admitted to IMU Room 201-01. Patient/family oriented to hospital policies and general routines including ID bracelet, bed and alarms, visiting hours, pain management, procedures, bathroom and other care routines, personal items, smoking policy, room service/diet, and visiting hours. Information on how to activate the Rapid Response Team has been discussed. Patient/Family are encouraged to report perceived risks to care and to ask questions if they do not understand what they are told or what they should do.
--- NOTE | 2025-01-06 17:47 | ECG_ITS ---
Test Date: 2025-01-06 17:51:25 Measurements Intervals [place] Rate: 68 P: 1 DC: 164 QRS: -11 QRSD: 88 T: 266 QT: 440 QTc: 469 Interpretive Statements SINUS RHYTHM ST DEVIATION AND MODERATE T-WAVE ABNORMALITY, CONSIDER INFERIOR AND LATERAL ISCHEMIA [-0.1+ mV T WAVE IN II/aVF] ABNORMAL ECG Compared to ECG 01/06/2025 16:27:20 No significant changes Electronically Signed On 01-07-2025 07:38:33 CDT by Tyrel Diaz M.D.
[2025-01-06] MEDS: NITROGLYCERIN SL 0.4 MG TABLET SUBLINGUAL (17:48)
[2025-01-06] MEDS: MORPHINE SULFATE (*CRX) 2 MG/ML INJ IV PUSH (17:48)
--- NOTE | 2025-01-06 18:23 | PC.NURSE ---
1730: Pt complains of 5/10 epigastric pain that is now radiating to right shoulder. Complaints of nausea and diaphoretic. PRN morphine and SL nitro given. Placed on 2L NC. STAT EKG completed. Dr. Caban made aware no new orders at this time. Charge nurse Heather aware. 1800: Pt having frequent PVCs. Pain still radiating to right shoulder now 4/10. Dr. Caban called back, will notify Dr. Matthews of pts status. 181: Transfered to ICU 5, pts at bedside. Updated on situation. Verbalizes understanding.
--- NOTE | 2025-01-06 18:47 | P.CONCA_ITS ---
Assessment and Plan Assessment and plan (1) Non-ST elevation myocardial infarction (NSTEMI): Code(s): I21.4 - Non-ST elevation (NSTEMI) myocardial infarction Status: Acute Plan 79-year-old man with history of stroke (12/08/2023) with residual left-sided weakness/paralysis and AAA (stable) presented with chest pain that started yesterday afternoon Non ST-elevation CA -he continues to have significant chest discomfort now with electrical instability on telemetry for which a cardiac catheterization is urgently requested -the risks/benefits/alternatives have been discussed with the patient and when all questions were answered, the patient decided to proceed for with the urgent left heart catheterization History of Present Illness History of Present Illness Consult date/time: 01/06/25 18:47 Requesting physician: Finn Caban DO Consult reason: chest pain Reason For Visit: NSTEMI Narrative: 79-year-old man with history of stroke (12/08/2023) with residual left-sided weakness/paralysis and AAA (stable) presented with chest pain that started yesterday afternoon. The pain is substernal in nature with radiation to the right side of his chest and is described as pain and has been persistent. He would have relief with nitroglycerin however there is significant decrease in blood pressure and the pain will quickly return. Denies any shortness of breath a syncopal events. He actively works with physical therapy and ambulates outside of his house on almost a daily basis whenever the weather is acceptable. He has not noticed any significant decline in his functional status and walks with a cane. Review of Systems 2 Cardiovascular: Cardiovascular: Reports as per HPI Respiratory: Respiratory: Reports as per HPI [facility] Past Medical History Medical History (Updated 01/06/25 @ 17:25 by Rehan Wells MD) Dyslipidemia Cerebrovascular accident resultant left-sided weakness Seizure x2 in 1997 Benign prostatic hyperplasia Esophageal stricture Gastroesophageal reflux Hypothyroidism Esophageal diverticulum, acquired Colon polyp Arthritis Dementia Diverticulosis Anemia Diverticulitis Myasthenia gravis Surgical History Surgical History (Updated 01/06/25 @ 16:20 by Jenna Willams PA-C) History of arthroplasty of right knee History of Noemy fundoplication History of thyroidectomy Status post dilatation of esophageal stricture Family History Family History Mother , age 85 Acute myocardial infarction Hypertension Heart disease Father , age 70 Acute myocardial infarction Chronic obstructive pulmonary disease History of blood clots Hypertension Heart disease Sibling Acute myocardial infarction Hypertension Heart disease Other Heart disease Social History Social History (Updated 01/06/25 @ 16:21 by Jenna Willams PA-C) Social History: Surrogate medical decision maker: Code status: Full code. Smoking packs per day: 1 Smoking cigarettes per day: 20.0 Years smoked: 4 Smoking pack-years: 4.00 Smoking status: Former smoker Alcohol intake: current Drinks per week: 1 Substance use: never Substance use type: does not use Do You Feel Safe in your Home?: Yes Lack of Transportation: No Lack of Food: Never True Current Housing: I Have Housing Concerned About Future Housing: No Difficulty Paying Gas/Electric Bills: No Difficulty Paying for Meds: No Currently Unemployed: No Education: Decline to Answer Difficulty w/ Childcare or Family Care: No Living arrangements: with family Additional living arrangements comments: Lives in [place]. Has 3 children. 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 Spiritual care concerns: No Meds Home Medications and Allergies Home Medications ?Medication ?Instructions ?Recorded ?Confirmed ?Type furosemide 20 mg tablet (Lasix) 20 mg PO DAILY 08/13/23 01/06/25 History gabapentin 100 mg capsule 600 mg PO TID 08/13/23 01/06/25 History tizanidine 2 mg tablet 2 mg PO Q8H PRN Muscle Pain 08/13/23 01/06/25 History melatonin 10 mg tablet 10 mg PO HS PRN Sleep 10/10/23 01/06/25 History oxybutynin chloride 15 mg 15 mg PO HS 10/10/23 01/06/25 History tablet,extended release 24 hr cholecalciferol (vitamin D3) 50 50 mcg PO DAILY 11/09/23 01/06/25 History mcg (2,000 unit) capsule donepezil 10 mg tablet 10 mg PO QHS 11/09/23 01/06/25 History levothyroxine 150 mcg capsule 150 mcg PO DAILY 11/09/23 01/06/25 History aspirin 81 mg chewable tablet 81 mg PO DAILY 01/26/24 01/06/25 History cetirizine 10 mg tablet 10 mg PO DAILY 01/26/24 01/06/25 History clobetasol 0.05 % topical ointment 1 applic topical BID PRN rash 01/26/24 01/06/25 History rosuvastatin 40 mg tablet 40 mg PO DAILY 01/26/24 01/06/25 History spironolactone 25 mg tablet 25 mg PO DAILY 01/26/24 01/06/25 History pantoprazole 40 mg tablet,delayed 40 mg PO BID #60 tabs 02/02/24 01/06/25 Rx release mometasone 0.1 % topical ointment 1 applic topical DAILY PRN itching 08/26/24 01/06/25 Rx #45 grams ferrous sulfate 325 mg (65 mg 325 mg PO BID 01/06/25 01/06/25 History iron) tablet (FeroSul) mirabegron 25 mg tablet,extended 25 mg PO DAILY 01/06/25 01/06/25 History release 24 hr (Myrbetriq) tamsulosin 0.4 mg capsule 0.4 mg PO HS 01/06/25 01/06/25 History Allergies Allergy/AdvReac Type Severity Reaction Status Date / Time No Known Allergies Allergy Verified 01/06/25 13:47 Vital Signs Vital Signs - 24 hr 01/06/25 10:50 01/06/25 12:30 01/06/25 12:45 Temperature 36.3 C L Pulse Rate 68 64 64 Respiratory Rate 16 21 H 20 Blood Pressure 146/92 H 149/93 H 147/93 H Pulse Oximetry 100 100 100 01/06/25 13:00 01/06/25 13:15 01/06/25 13:30 Temperature Pulse Rate 68 66 69 Respiratory Rate 21 H 15 20 Blood Pressure 137/89 131/89 137/95 H Pulse Oximetry 100 100 100 01/06/25 13:45 01/06/25 13:47 01/06/25 14:12 Temperature Pulse Rate 73 69 74 Respiratory Rate 18 14 16 Blood Pressure 145/86 H 145/86 H 139/97 H Pulse Oximetry 99 99 99 01/06/25 16:30 01/06/25 16:45 01/06/25 17:12 Temperature Pulse Rate 68 68 66 Respiratory Rate 18 20 Blood Pressure 139/74 152/91 H Pulse Oximetry 98 99 01/06/25 17:25 01/06/25 18:00 Temperature 36.6 C Pulse Rate 65 68 Respiratory Rate 14 Blood Pressure 126/75 Pulse Oximetry 100 Exam 2 Const: General: uncomfortable HENMT: Mouth: Yes dry mucous membranes Eyes: EOM: EOMs intact bilaterally Neck: Neck: no JVD Resp: Effort & Inspection: normal respiratory effort Auscultation: clear to auscultation bilaterally Cardio: Rate: regular rate Rhythm: regular rhythm GI: GI Palp: Yes Soft to palpation Neuro: Speech: normal speech Extrem: General: no pedal edema Results Labs and Meds 01/06/25 13:34 01/06/25 13:34 Lab results: Cardiac Enzymes 01/06/25 01/06/25 Range/Units 13:34 16:26 AST 351 H (17-59) U/L Troponin I 56.800 H* 67.600 H* (0.000-0.034) ng/mL Coagulation 01/06/25 Range/Units 13:34 PT 13.6 (11.1-14.7) Seconds APTT 30.9 (22.3-36.8) Seconds CBC 01/06/25 Range/Units 13:34 WBC 15.1 H (4.5-10.0) K/mm3 RBC 4.50 L (4.6-6.20) M/mm3 Hgb 14.0 (14.0-18.0) g/dL Hct 43.1 (42.0-52.0) % Plt Count 220 (150-375) k/mm3 Lymph # (Auto) 1.38 (0.9-3.2) K/mm3 [place] # (Auto) 1.5 H (0.1-0.6) K/mm3 Eos # (Auto) 0.0 (0-0.3) K/mm3 Baso # (Auto) 0.0 (0.0-0.1) K/mm3 Comprehensive Metabolic Panel 01/06/25 Range/Units 13:34 Sodium 142 (137-145) mmol/L Potassium 4.0 (3.4-5.0) mmol/L Chloride 102 (98-107) mmol/L Carbon Dioxide 33 H (22-30) mmol/L BUN 19 (9-20) mg/dL Creatinine 1.13 (0.7-1.3) mg/dL Glucose 124 H (65-110) mg/dL Calcium 9.4 (8.4-10.2) mg/dL AST 351 H (17-59) U/L ALT 64 H (6-50) U/L Alkaline Phosphatase 100 (38-126) U/L Total Protein 8.0 (6.3-8.2) g/dL Albumin 4.1 (3.5-5.1) g/dL Intake and Output 01/06/25 01/06/25 01/06/25 07:59 15:59 23:59 Intake Total 1000 Balance 1000 Intake: IV 1000 Sodium Chloride 0.9% IV 1,000 1000 ml @ 999 mls/hr IV CONT .Q1H1M STA Rx#:[id number] Patient Weight 01/06/25 23:59 Weight 85 kg
--- NOTE | 2025-01-06 18:53 | WPDHPUPDATE1 ---
History and Physical Update Update Date/Time: 01/06/25 18:39 History and Physical has been reviewed, including an updated exam of the patient. There are NO changes in the patient's condition. Risks, benefits, and alternatives have been discussed and questions answered. Patient agrees to proceed with procedure.
--- NOTE | 2025-01-06 18:53 | WPDMODSED ---
Moderate Sedation Note-Pt Data Patient Data Allergies Allergy/AdvReac Type Severity Reaction Status Date / Time No Known Allergies Allergy Verified 01/06/25 13:47 Home Medications ?Medication ?Instructions ?Recorded ?Confirmed ?Type furosemide 20 mg tablet (Lasix) 20 mg PO DAILY 08/13/23 01/06/25 History gabapentin 100 mg capsule 600 mg PO TID 08/13/23 01/06/25 History tizanidine 2 mg tablet 2 mg PO Q8H PRN Muscle Pain 08/13/23 01/06/25 History melatonin 10 mg tablet 10 mg PO HS PRN Sleep 10/10/23 01/06/25 History oxybutynin chloride 15 mg 15 mg PO HS 10/10/23 01/06/25 History tablet,extended release 24 hr cholecalciferol (vitamin D3) 50 50 mcg PO DAILY 11/09/23 01/06/25 History mcg (2,000 unit) capsule donepezil 10 mg tablet 10 mg PO QHS 11/09/23 01/06/25 History levothyroxine 150 mcg capsule 150 mcg PO DAILY 11/09/23 01/06/25 History aspirin 81 mg chewable tablet 81 mg PO DAILY 01/26/24 01/06/25 History cetirizine 10 mg tablet 10 mg PO DAILY 01/26/24 01/06/25 History clobetasol 0.05 % topical ointment 1 applic topical BID PRN rash 01/26/24 01/06/25 History rosuvastatin 40 mg tablet 40 mg PO DAILY 01/26/24 01/06/25 History spironolactone 25 mg tablet 25 mg PO DAILY 01/26/24 01/06/25 History pantoprazole 40 mg tablet,delayed 40 mg PO BID #60 tabs 02/02/24 01/06/25 Rx release mometasone 0.1 % topical ointment 1 applic topical DAILY PRN itching 08/26/24 01/06/25 Rx #45 grams ferrous sulfate 325 mg (65 mg 325 mg PO BID 01/06/25 01/06/25 History iron) tablet (FeroSul) mirabegron 25 mg tablet,extended 25 mg PO DAILY 01/06/25 01/06/25 History release 24 hr (Myrbetriq) tamsulosin 0.4 mg capsule 0.4 mg PO HS 01/06/25 01/06/25 History Current Medications: Active Medications Acetaminophen (Acetaminophen 325 Mg Tablet) 650 mg PO Q4H PRN PRN Reason: Mild Pain (1-3) or Fever Hydrocodone Bitart/Acetaminophen (Hydrocodone/Acetaminophen (*Crx) 5-325 Mg Tablet) 1 tab PO Q4H PRN PRN Reason: Pain Rated 4-6 Aspirin (Aspirin 81 Mg Enteric Tablet) 81 mg PO QAM AIMEE Dextrose (Dextrose 50% 25 Gm/50 Ml Syringe) 12.5 gm IV PUSH PRN PRN; Protocol PRN Reason: Hypoglycemia Glucagon (Glucagon For Inj 1 Mg Vial) 1 mg IM PRN PRN; Protocol PRN Reason: Hypoglycemia Glucose (Glucose Oral Gel 15 Gm Of Glucse In 37.5 Gm Tube) 15 gm PO PRN PRN; Protocol PRN Reason: Hypoglycemia Heparin Sodium/Dextrose (Heparin Sodium/D5w 100 Units/Ml) 25,000 units in 250 mls @ 10 mls/hr IV CONT .Q24H STA; Protocol Stop: 01/07/25 15:55 Last Admin: 01/06/25 16:21 Dose: 1,000 units/hr, 10 mls/hr Dextrose (Dextrose 5% 1,000 Ml) 1,000 mls @ 100 mls/hr IVPB PRN PRN; Protocol PRN Reason: Hypoglycemia Losartan Potassium (Losartan Potassium 25 Mg Tablet) 25 mg PO DAILY AIMEE Metoprolol Succinate (Metoprolol Succinate Ext Rel 25 Mg Tabcr) 25 mg PO QAM AIMEE Morphine Sulfate (Morphine Sulfate (*Crx) 2 Mg/Ml Inj) 2 mg IV PUSH Q2H PRN PRN Reason: Pain Rated 7-10 Last Admin: 01/06/25 17:48 Dose: 2 mg Nitroglycerin (Nitroglycerin Sl 0.4 Mg Tablet) 0.4 mg SUBLINGUAL Q5MIN PRN PRN Reason: Chest Pain Last Admin: 01/06/25 17:48 Dose: 0.4 mg Ondansetron HCl (Ondansetron Inj 4 Mg/2 Ml Vial) 4 mg IV PUSH Q4H PRN PRN Reason: Nausea Perflutren Lipid Microsphere (Perflutren Lipid Microspheres 1.5 Ml Vial Diluted To 10 Ml Total Volume) 0 ml IV PUSH ONCE PRN; Protocol PRN Reason: adequate visualization Stop: 01/09/25 16:07 Sedation/Anesthesia: No previous sedation/anesthesia problems (including family history). COUNTS INCLUDE 234 BEDS AT THE [facility] Past Medical History Medical History (Updated 01/06/25 @ 17:25 by Rehan Wells MD) Dyslipidemia Cerebrovascular accident resultant left-sided weakness Seizure x2 in 1997 Benign prostatic hyperplasia Esophageal stricture Gastroesophageal reflux Hypothyroidism Esophageal diverticulum, acquired Colon polyp Arthritis Dementia Diverticulosis Anemia Diverticulitis Myasthenia gravis Surgical History Surgical History (Updated 01/06/25 @ 16:20 by Jenna Willams PA-C) History of arthroplasty of right knee History of Noemy fundoplication History of thyroidectomy Status post dilatation of esophageal stricture Family History Family History Mother , age 85 Acute myocardial infarction Hypertension Heart disease Father , age 70 Acute myocardial infarction Chronic obstructive pulmonary disease History of blood clots Hypertension Heart disease Sibling Acute myocardial infarction Hypertension Heart disease Other Heart disease Social History Social History (Updated 01/06/25 @ 16:21 by Jenna Willams PA-C) Social History: Surrogate medical decision maker: Code status: Full code. Smoking packs per day: 1 Smoking cigarettes per day: 20.0 Years smoked: 4 Smoking pack-years: 4.00 Smoking status: Former smoker Alcohol intake: current Drinks per week: 1 Substance use: never Substance use type: does not use Do You Feel Safe in your Home?: Yes Lack of Transportation: No Lack of Food: Never True Current Housing: I Have Housing Concerned About Future Housing: No Difficulty Paying Gas/Electric Bills: No Difficulty Paying for Meds: No Currently Unemployed: No Education: Decline to Answer Difficulty w/ Childcare or Family Care: No Living arrangements: with family Additional living arrangements comments: Lives in [place]. Has 3 children. 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 Spiritual care concerns: No Mod Sed Physical Exam Physical Exam Pre Procedural Exam: Normal: Lungs and Heart Rate and Variation: Heart Rhythm (frequent ectopic beats) Hours since solid foods: 6 Hours since liquid intake: 6 Mallampati Classification: class II Internal Medicine - PN: Obj Da Vital Signs Vital Signs: Vital Signs - 24 hr 01/06/25 10:50 01/06/25 12:30 01/06/25 12:45 Temperature 36.3 C L Pulse Rate 68 64 64 Respiratory Rate 16 21 H 20 Blood Pressure 146/92 H 149/93 H 147/93 H Pulse Oximetry 100 100 100 01/06/25 13:00 01/06/25 13:15 01/06/25 13:30 Temperature Pulse Rate 68 66 69 Respiratory Rate 21 H 15 20 Blood Pressure 137/89 131/89 137/95 H Pulse Oximetry 100 100 100 01/06/25 13:45 01/06/25 13:47 01/06/25 14:12 Temperature Pulse Rate 73 69 74 Respiratory Rate 18 14 16 Blood Pressure 145/86 H 145/86 H 139/97 H Pulse Oximetry 99 99 99 01/06/25 16:30 01/06/25 16:45 01/06/25 17:12 Temperature Pulse Rate 68 68 66 Respiratory Rate 18 20 Blood Pressure 139/74 152/91 H Pulse Oximetry 98 99 01/06/25 17:25 01/06/25 18:00 Temperature 36.6 C Pulse Rate 65 68 Respiratory Rate 14 Blood Pressure 126/75 Pulse Oximetry 100 Intake/Output Intake/Output: Intake & Output 01/03/25 01/04/25 01/05/25 01/06/25 23:59 23:59 23:59 23:59 Intake Total 1000 Balance 1000 Meds/Results Medications: Active Medications Generic Name Dose Route Start Last Admin Trade Name Freq PRN Reason Stop Dose Admin Acetaminophen 650 mg 01/06/25 16:14 Acetaminophen 325 Mg Tablet PO Q4H PRN Mild Pain (1-3) or Fever Hydrocodone Bitart/Acetaminophen 1 tab 01/06/25 16:14 Hydrocodone/Acetaminophen (*Crx) 5-325 Mg Tablet PO Q4H PRN Pain Rated 4-6 Aspirin 81 mg 01/07/25 09:00 Aspirin 81 Mg Enteric Tablet PO QAM [facility] Dextrose 12.5 gm 01/06/25 16:27 Dextrose 50% 25 Gm/50 Ml Syringe IV PUSH PRN PRN Hypoglycemia Protocol Glucagon 1 mg 01/06/25 16:27 Glucagon For Inj 1 Mg Vial IM PRN PRN Hypoglycemia Protocol Glucose 15 gm 01/06/25 16:27 Glucose Oral Gel 15 Gm Of Glucse In 37.5 Gm Tube PO PRN PRN Hypoglycemia Protocol Heparin Sodium/Dextrose 25,000 units in 250 mls @ 10 mls/hr 01/06/25 15:56 01/06/25 16:21 Heparin Sodium/D5w 100 Units/Ml IV CONT 01/07/25 15:55 1,000 units/hr .Q24H STA 10 mls/hr Administration Protocol 1,000 UNITS/HR Dextrose 1,000 mls @ 100 mls/hr 01/06/25 16:27 Dextrose 5% 1,000 Ml IVPB PRN PRN Hypoglycemia Protocol Losartan Potassium 25 mg 01/07/25 09:00 Losartan Potassium 25 Mg Tablet PO DAILY AIMEE Metoprolol Succinate 25 mg 01/07/25 09:00 Metoprolol Succinate Ext Rel 25 Mg Tabcr PO QAM AIMEE Morphine Sulfate 2 mg 01/06/25 16:14 01/06/25 17:48 Morphine Sulfate (*Crx) 2 Mg/Ml Inj IV PUSH 2 mg Q2H PRN Administration Pain Rated 7-10 Nitroglycerin 0.4 mg 01/06/25 16:14 01/06/25 17:48 Nitroglycerin Sl 0.4 Mg Tablet SUBLINGUAL 0.4 mg Q5MIN PRN Administration Chest Pain Ondansetron HCl 4 mg 01/06/25 16:14 Ondansetron Inj 4 Mg/2 Ml Vial IV PUSH Q4H PRN Nausea Perflutren Lipid Microsphere 0 ml 01/06/25 16:07 Perflutren Lipid Microspheres 1.5 Ml Vial Diluted To 10 Ml Total Volume IV PUSH 01/09/25 16:07 ONCE PRN adequate visualization Protocol Radiology Results: ITS Impressions Upper Quadrant Ultrasound 01/06/25 15:11 IMPRESSION: Hepatic cyst. No additional abnormalities detected. Chest X-Ray 01/06/25 15:46 IMPRESSION: No focal infiltrate or effusion. Large hiatal hernia redemonstrated. Labs 01/06/25 13:34 01/06/25 13:34 Labs: Laboratory Results - last 24 hr 01/06/25 01/06/25 01/06/25 13:34 13:34 16:26 WBC 15.1 H RBC 4.50 L Hgb 14.0 Hct 43.1 MCV 95.8 MCH 31.1 MCHC 32.5 RDW 21.5 H Plt Count 220 MPV 10.8 H Immature Gran % (Auto) 0.6 H Neut % (Auto) 80.0 H Lymph % (Auto) 9.2 L Ward % (Auto) 10.0 H Eos % (Auto) 0.1 Baso % (Auto) 0.1 L Lymph # (Auto) 1.38 Ward # (Auto) 1.5 H Eos # (Auto) 0.0 Baso # (Auto) 0.0 Abs Immat Gran (auto) 0.09 H Absolute Neuts (auto) 12.1 H Absolute Nucleated RBC 0.000 Nucleated RBC % 0.0 PT 13.6 INR 1.0 APTT 30.9 Sodium 142 Potassium 4.0 Chloride 102 Carbon Dioxide 33 H Anion Gap 7 BUN 19 Creatinine 1.13 Estim Creat Clear Calc 48 Estimated GFR > 60 Glucose 124 H Calcium 9.4 Total Bilirubin 0.5 AST 351 H ALT 64 H Alkaline Phosphatase 100 Troponin I 56.800 H* 67.600 H* Total Protein 8.0 Albumin 4.1 Lipase 29 Cancelled ASA Classification/Sedation ASA Classification/Sedation ASA Class: IV Emergent: Yes Risks: Risks, benefits and alternatives explained and patient/family accepted plan for sedation. Patient re-evaluated immediately prior to sedation.
[2025-01-06 20:16] LABS: Activated Clotting Time 233 SEC (74-137)
--- NOTE | 2025-01-06 20:16 | WPDCARDPROC ---
Cardiac Cath Procedure Note Date of procedure:: 01/06/25 Performing physician:: CATHETERIZATION LABORATORY REPORT Procedure Date: 01/06/2025 Referring Physician: Dr. Caban Anesthesia: Versed and Fentanyl were ordered and given in my presence at 1918, procedure ended at 2009. Supervision of nurse, Tomy Serna monitored moderate sedation with 1mg Versed and 75mcg Fentanyl was provided for 52 minutes. Pre-op Diagnosis: NSTEMI Post-op Diagnosis: NSTEMI Procedure(s): Left heart catheterization with coronary angiography IVUS guided PCI Ultrasound guided arterial access Access Site: Right common femoral artery Brief History and Clinical Indications: 79-year-old man with history of stroke (12/08/2023) with residual left-sided weakness/paralysis and AAA (stable) presented with chest pain whose clinical presentation was consistent with non ST elevation VA was urgently taken to cardiac catheterization lab to define coronary anatomy with possible PCI. All risks, benefits and alternatives to left heart catheterization with or without percutaneous coronary intervention was discussed at length with the patient. Risk of complications including but not limited to bleeding, infection, arrhythmia, stroke, worsening kidney function, blood loss, groin hematoma, limb loss, emergency coronary artery bypass grafting, and even were discussed with the patient and all questions were answered. The patient understood and wished to proceed. Time out called, patient name, date of , medical record number, allergies, procedure performed, identify Propeller Inspector, patient and staff member concurred with accurate data, procedure carried on. Findings: LEFT HEART CATHETERIZATION FINDINGS: 1. Left main: The left main coronary artery has 10-20% stenosis. 2. Left anterior descending: The LAD provides 2 main diagonal branches. The ostial to proximal and LAD has calcific 10% stenosis. The mid LAD has an area heavily calcified 60-70% stenosis involving the 1st major diagonal branch in a Barahona classification 1, 1, 1. The ostium of the 1st diagonal branch has heavily calcified 70% stenosis and approximately 5 mm after the ostium, the vessel branches off into a superior branch and inferior branch. The superior branch is a small vessel supplying a small territory. The inferior branch supplies the majority of the anterolateral wall and immediately at its ostium has a heavily calcified 90% stenosis followed by a long diffuse 50% lesion. The 2nd diagonal branch is a small vessel (<2mm) with a long diffuse 90% stenosis in its proximal body. The mid LAD after the takeoff of the 2nd diagonal has a 30% stenosis. The distal LAD has a long diffuse segment of 70-90% stenosis before wrapping around the apex. 3. Ramus intermedius: The ramus intermedius is a large caliber vessel that has an acute 99% thrombotic lesion in its proximal body with EVAN 2 flow. 3. Left circumflex: The left circumflex artery is a moderate caliber vessel that provides 3 OM branches. The ostium of the left circumflex has 10% stenosis. The 1st OM branch is a very small caliber vessel that is subtotal at the ostium. The remainder of the left circumflex and the OM branches are angiographically free of disease. 4. Right coronary artery: The RCA is a moderate caliber dominant vessel with a long diffuse segment of 40-50% stenosis in its mid body. There is a focal 30-50% stenosis in the distal RCA. The RPDA and RPL branches are free of angiographic disease. 5. Left ventricle: A. End-diastolic pressure 30 mmHg. B. LV gram deferred. C. No significant gradient across aortic valve on catheter pullback. 6. Opening AO pressure 143/80 and closing AO pressure 136/84 7. No significant angiographic disease of the right common femoral artery and the visualized portions of the right profundus, proximal right SFA, and distal right external iliac artery. Description of Procedure: Informed consent signed and placed in the chart. Patient transferred to scientific laboratory supervisor room. Prepped and draped in usual sterile fashion. 2% lidocaine in right groin area. Micropuncture needle used to access right common femoral artery with Seldinger technique under ultrasound and fluoroscopic guidance. J wire advanced, micropuncture cannula placed and exchanged for 6-FR sheath. Right iliofemoral angiogram was performed showing good access site. 5F JL4 diagnostic catheter engaged Left Main Coronary Artery. 5F JR4 diagnostic catheter engaged Right Coronary Artery. Multiple orthogonal angiogram obtained and reviewed 5F Pigtail diagnostic catheter crossed aortic valve to obtain LVEDP, LV angiogram deferred. After review of the films in its entirety, the decision was made to pursue PCI to the acute 99% thrombotic lesion lesion in the proximal ramus intermedius vessel that currently has EVAN 2 flow. Procedure Description for PCI: Heparin was used for anticoagulation (ACT maintained above 250) Patient loaded with heparin at 70 units/kg. 6F EBU 3.5 guide catheter was used to engage the LMCA. 0.014 Runthrough coronary wire was passed in to the distal superior branch of the Ramus Intermedius. The lesion was pre-dilated with a 3.0 x 10mm balloon inflated to nominal pressures. A 3.5 x 18mm Lawrence [place] CATHERINE was successfully deployed into ostial to proximal Ramus Intermedius at 13atm. Follow-up angiogram demonstrated restored EVAN 3 flow in the ramus intermedius however there was lul shift causing 50% stenosis in the ostium of the left circumflex. We then performed intravascular ultrasound imaging of the stented portion of ramus intermedius. Intravascular ultrasound imaging confirmed good distal landing zone, proximal stent landing immediately prior to the ostium of the ramus intermedius with no stent struts in the left main, good stent apposition, and excellent stent expansion. The left circumflex was then wired with a second 0.014 Runthrough coronary wire. Given the acuity of the angle, the IVUS catheter was unable to be advanced into the left circumflex vessel. Follow-up angiogram was performed in multiple views. Given the partial lul shift into the ostium of the left circumflex, and both good angiographic and intravascular ultrasound imaging results, decision was made to not pursue post dilation. All intracoronary equipment was removed under fluoroscopy and final angiogram did not demonstrate any immediate complications. Pre-procedure - EVAN 2 flow. Post-procedure - EVAN 3 flow. Hemostasis was achieved with 6 Irish Angio-Seal at the end of the procedure. Assessment: Successful IVUS guided PCI to the proximal Ramus Intermedius with 3.5 x 18mm Lawrence Aurora CATHERINE deployed at 13atm with good angiographic and IVUS results. Post Operative Condition: Stable No significant blood loss Disposition: Floor Plan: Given the patient's age and comorbidities, would recommend symptom guided management of his remaining coronary artery disease. Continue ASA 81mg PO indefinitely. Continue ticagrelor 90mg PO BID for a minimum of 1 year. Evaristo Matthews Interventional Cardiology
--- NOTE | 2025-01-06 20:35 | ECG_ITS ---
Test Date: 2025-01-06 20:39:34 Measurements Intervals [place] Rate: 67 P: 74 VA: 156 QRS: 91 QRSD: 90 T: 166 QT: 405 QTc: 430 Interpretive Statements SINUS RHYTHM WITH FREQUENT VENTRICULAR PREMATURE COMPLEXES/IDIOVENTRICULAR RHYTHM BORDERLINE RIGHT AXIS DEVIATION [QRS AXIS > 90] LEFT VENTRICULAR HYPERTROPHY AND ST-T CHANGE [VOLTAGE CRITERIA PLUS ST/T ABNORMALITY] ABNORMAL ECG Electronically Signed On 01-07-2025 07:41:03 CDT by Tyrel Diaz M.D.
[2025-01-06] MEDS: SODIUM CHLORIDE 0.9% IV 1,000 ML 125 ML IV CONT (21:11)
[2025-01-06 21:58] LABS: Anion Gap 8 mmol/L (4-12); Blood Urea Nitrogen 16 mg/dL (9-20); Calcium 8.8 mg/dL (8.4-10.2); Carbon Dioxide 25 mmol/L (22-30); Chloride 104 mmol/L (98-107); Estimated CRCL calculation 56 ml/min; Estimated Glomerular Filt Rate > 60; Glucose 136 mg/dL (65-110); Sodium 137 mmol/L (137-145)
[2025-01-06 22:17] LABS: Troponin I > 80.000 ng/mL (0.000-0.034)
[2025-01-06] MEDS: METOPROLOL TARTRATE 25 MG TABLET PO (22:26)
[2025-01-07] VITALS (21 sets, daily range): BP systolic 92–126; BP diastolic 57–85; PULSE 54–67; RESP 15–26; TEMP 36.4–36.9; O2SAT 97–100
[2025-01-07 04:33] LABS: Basophils Percent Auto 0.2 % (0.2-1.2); Eosinophils Percent Auto 0.1 % (0-4.4); Hematocrit 44.3 % (42.0-52.0); Hemoglobin 14.6 g/dL (14.0-18.0); Immature Granulocyte Absolute 0.05 K/mm3 (0.00-0.031); Immature Granulocyte Percent A 0.4 % (0-0.5); Lymphocytes Absolute Auto 1.74 K/mm3 (0.9-3.2); Lymphocytes Percent Auto 13.1 % (18.3-44.2); Mean Corpuscular Hemoglobin 31.3 pg (26-34); Mean Corpuscular Volume 94.9 fl (80-100); Mean Platelet Volume 10.7 fl (7.4-10.4); Monocytes Absolute Auto 1.7 K/mm3 (0.1-0.6); Monocytes Percent Auto 12.4 % (2.6-8.5); Neutrophils Absolute Auto 9.8 K/mm3 (1.3-6.7); Neutrophils Percent Auto 73.8 % (45.5-73.1); Platelet Count Result 193 k/mm3 (150-375); Red Blood Count 4.67 M/mm3 (4.6-6.20); Red Cell Distribution Width 21.5 % (11.5-14.5); White Blood Count 13.3 K/mm3 (4.5-10.0)
[2025-01-07 04:50] LABS: Alanine Aminotransferase 54 U/L (6-50); Albumin Level 3.7 g/dL (3.5-5.1); Alkaline Phosphatase 92 U/L (38-126); Anion Gap 6 mmol/L (4-12); Aspartate Amino Transferase 219 U/L (17-59); Bilirubin,Total 0.9 mg/dL (0.2-1.3); Blood Urea Nitrogen 16 mg/dL (9-20); Calcium 8.5 mg/dL (8.4-10.2); Carbon Dioxide 27 mmol/L (22-30); Chloride 106 mmol/L (98-107); Cholesterol 141 mg/dL (0-200); Creatine Kinase 1187 U/L (55-170); Estimated CRCL calculation 54 ml/min; Estimated Glomerular Filt Rate > 60; Glucose 132 mg/dL (65-110); HDL Direct 70 mg/dL; Potassium 4.1 mmol/L (3.4-5.0); Sodium 139 mmol/L (137-145); Triglycerides 90 mg/dL (<150)
[2025-01-07 05:01] LABS: LDL Cholesterol Direct 31 mg/dL
[2025-01-07 05:35] LABS: Hemoglobin A1C 5.7 % (<5.7)
[2025-01-07 06:02] LABS: Free T4 Free Thyroxine Reflex 0.73 ng/dL (0.78-2.19)
--- NOTE | 2025-01-07 07:00 | ECG_ITS ---
Test Date: 2025-01-07 12:00:53 Measurements Intervals [place] Rate: 52 P: 40 ME: 166 QRS: -17 QRSD: 83 T: 142 QT: 510 QTc: 476 Interpretive Statements SINUS BRADYCARDIA ST DEVIATION AND MODERATE T-WAVE ABNORMALITY, CONSIDER LATERAL ISCHEMIA [-0.1+ mV T WAVE IN I/aVL/V5/V6] ABNORMAL ECG Electronically Signed On 01-07-2025 14:23:49 CDT by Tyrel Diaz M.D.
--- NOTE | 2025-01-07 07:47 | P.PNCA_ITS ---
Progress Note: A&P Assessment and Plan (1) Non-ST elevation myocardial infarction (NSTEMI): Code(s): I21.4 - Non-ST elevation (NSTEMI) myocardial infarction Status: Acute Assessment and Plan: Initial troponin significantly elevated at 56.8, then 67, then post cath >80. EKG shows ST depression in anterior leads. Patient was having more chest pains despite medication and electrical instability with PVC's and ventricular bigeminy, and therefore cath lab radiological technologist was activated for urgent LHC. Dr. Matthews was consulted for it and patient taken to cath lab radiological technologist on 01/06/25 showing 99% thrombotic stenosis of prox large Ramus with EVAN 2 flow; PCI to Ramus with good results and EVAN 3 flow. Mid LAD 60-70% which is in proximity to calcified ostial 1st Diag 70% with large inferior ostial branch 90% heavily calcified followed by diffuse 50% stenosis, 2nd diag small vessel (<2 mm) with long diffuse prox 90% stenosis, distal LAD with diffuse 70-90% wrapping around apex, ostial LCx 10%, RCA mid 40-50%, distal RCA 30-50%. On Metoprolol and Losartan, aspirin, Brilinta and Rosuvastatin. (2) Dyslipidemia: Code(s): E78.5 - Hyperlipidemia, unspecified Status: Acute Assessment and Plan: On Rosuvastatin. Monitor LFT and OK to continue since levels improving. (3) AAA (abdominal aortic aneurysm): Code(s): I71.40 - Abdominal aortic aneurysm, without rupture, unspecified Status: Acute Assessment and Plan: Stable. (4) Stroke: Code(s): I63.9 - Cerebral infarction, unspecified Status: Acute Subjective Date/time seen: 01/07/25 07:47 Interval history: No more chest pains, no sob. Exam Const: General: cooperative, healthy appearing and comfortable Orientation/consciousness: oriented to person, oriented to place and oriented to time Resp: Auscultation: clear to auscultation bilaterally, no crackles, no rales, no rhonchi and no wheezes Cardio: Rate: regular rate Rhythm: regular rhythm Heart sounds: no murmurs Peripheral pulses: dorsalis pedis present Neuro: General: oriented to person, oriented to place and oriented to time Extrem: Right lower extremity: no edema Left lower extremity: no edema Objective Data Vital Signs Vital Signs: Vital Signs - 24 hr 01/06/25 10:50 01/06/25 12:30 01/06/25 12:45 Temperature 97.4 F L Pulse Rate 68 64 64 Respiratory Rate 16 21 H 20 Blood Pressure 146/92 H 149/93 H 147/93 H Pulse Oximetry 100 100 100 Oxygen Delivery 01/06/25 13:00 01/06/25 13:15 01/06/25 13:30 Temperature Pulse Rate 68 66 69 Respiratory Rate 21 H 15 20 Blood Pressure 137/89 131/89 137/95 H Pulse Oximetry 100 100 100 Oxygen Delivery 01/06/25 13:45 01/06/25 13:47 01/06/25 14:12 Temperature Pulse Rate 73 69 74 Respiratory Rate 18 14 16 Blood Pressure 145/86 H 145/86 H 139/97 H Pulse Oximetry 99 99 99 Oxygen Delivery 01/06/25 16:30 01/06/25 16:45 01/06/25 17:12 Temperature Pulse Rate 68 68 66 Respiratory Rate 18 20 Blood Pressure 139/74 152/91 H Pulse Oximetry 98 99 Oxygen Delivery 01/06/25 17:25 01/06/25 18:00 01/06/25 20:45 Temperature 98 F 97.8 F Pulse Rate 65 68 69 Respiratory Rate 14 16 Blood Pressure 126/75 120/66 Pulse Oximetry 100 95 Oxygen Delivery 01/06/25 20:58 01/06/25 21:00 01/06/25 21:13 Temperature Pulse Rate 69 70 Respiratory Rate 17 12 Blood Pressure 122/78 122/82 Pulse Oximetry 95 96 Oxygen Delivery Room Air 01/06/25 21:43 01/06/25 22:00 01/06/25 22:13 Temperature Pulse Rate 99 74 74 Respiratory Rate Blood Pressure 127/62 123/79 Pulse Oximetry 97 95 Oxygen Delivery 01/06/25 22:26 01/06/25 23:13 01/07/25 00:00 Temperature Pulse Rate 75 64 Respiratory Rate 22 H Blood Pressure 129/76 Pulse Oximetry 93 Oxygen Delivery Room Air 01/07/25 00:00 01/07/25 00:13 01/07/25 01:13 Temperature 98.0 F Pulse Rate 63 64 66 Respiratory Rate 26 H 15 Blood Pressure 126/71 119/71 Pulse Oximetry 97 99 Oxygen Delivery 01/07/25 02:00 01/07/25 02:13 01/07/25 03:13 Temperature Pulse Rate 59 L 59 L 60 Respiratory Rate 22 H 21 H Blood Pressure 117/77 116/71 Pulse Oximetry 98 99 Oxygen Delivery 01/07/25 04:00 01/07/25 04:00 01/07/25 04:00 Temperature 97.8 F Pulse Rate 59 L 59 L Respiratory Rate 15 Blood Pressure 113/85 Pulse Oximetry 97 Oxygen Delivery Room Air 01/07/25 05:00 01/07/25 06:00 Temperature Pulse Rate 64 66 Respiratory Rate 16 Blood Pressure 114/70 Pulse Oximetry 100 Oxygen Delivery Intake/Output Intake/Output: Intake & Output 01/04/25 01/05/25 01/06/25 01/07/25 23:59 23:59 23:59 23:59 Intake Total 1000 1250 Output Total 100 Balance 1000 1150 Meds/Results Medications: Active Medications Generic Name Dose Route Start Last Admin Trade Name Freq PRN Reason Stop Dose Admin Acetaminophen 650 mg 01/06/25 16:14 Acetaminophen 325 Mg Tablet PO Q4H PRN Mild Pain (1-3) or Fever Hydrocodone Bitart/Acetaminophen 1 tab 01/06/25 16:14 Hydrocodone/Acetaminophen (*Crx) 5-325 Mg Tablet PO Q4H PRN Pain Rated 4-6 Aspirin 81 mg 01/07/25 09:00 Aspirin 81 Mg Enteric Tablet PO QAM AIMEE Dextrose 12.5 gm 01/06/25 16:27 Dextrose 50% 25 Gm/50 Ml Syringe IV PUSH PRN PRN Hypoglycemia Protocol Glucagon 1 mg 01/06/25 16:27 Glucagon For Inj 1 Mg Vial IM PRN PRN Hypoglycemia Protocol Glucose 15 gm 01/06/25 16:27 Glucose Oral Gel 15 Gm Of Glucse In 37.5 Gm Tube PO PRN PRN Hypoglycemia Protocol Dextrose 1,000 mls @ 100 mls/hr 01/06/25 16:27 Dextrose 5% 1,000 Ml IVPB PRN PRN Hypoglycemia Protocol Losartan Potassium 25 mg 01/07/25 09:00 Losartan Potassium 25 Mg Tablet PO DAILY AIMEE Metoprolol Tartrate 25 mg 01/06/25 22:20 01/06/25 22:26 Metoprolol Tartrate 25 Mg Tablet PO 25 mg Q12HR AIMEE Administration Morphine Sulfate 2 mg 01/06/25 16:14 01/06/25 17:48 Morphine Sulfate (*Crx) 2 Mg/Ml Inj IV PUSH 2 mg Q2H PRN Administration Pain Rated 7-10 Nitroglycerin 0.4 mg 01/06/25 16:14 01/06/25 17:48 Nitroglycerin Sl 0.4 Mg Tablet SUBLINGUAL 0.4 mg Q5MIN PRN Administration Chest Pain Ondansetron HCl 4 mg 01/06/25 16:14 Ondansetron Inj 4 Mg/2 Ml Vial IV PUSH Q4H PRN Nausea Perflutren Lipid Microsphere 0 ml 01/06/25 16:07 Perflutren Lipid Microspheres 1.5 Ml Vial Diluted To 10 Ml Total Volume IV PUSH 01/09/25 16:07 ONCE PRN adequate visualization Protocol Rosuvastatin Calcium 40 mg 01/07/25 18:00 Rosuvastatin 20 Mg Tablet PO EVENING AIMEE Ticagrelor 90 mg 01/07/25 09:00 Ticagrelor 90 Mg Tablet PO Q12HR AIMEE Radiology Results: ITS Impressions Upper Quadrant Ultrasound 01/06/25 15:11 IMPRESSION: Hepatic cyst. No additional abnormalities detected. Chest X-Ray 01/06/25 15:46 IMPRESSION: No focal infiltrate or effusion. Large hiatal hernia redemonstrated. Labs Labs: Laboratory Results - last 24 hr 01/06/25 01/06/25 01/06/25 13:34 13:34 16:26 WBC 15.1 H RBC 4.50 L Hgb 14.0 Hct 43.1 MCV 95.8 MCH 31.1 MCHC 32.5 RDW 21.5 H Plt Count 220 MPV 10.8 H Immature Gran % (Auto) 0.6 H Neut % (Auto) 80.0 H Lymph % (Auto) 9.2 L Thayer % (Auto) 10.0 H Eos % (Auto) 0.1 Baso % (Auto) 0.1 L Lymph # (Auto) 1.38 Thayer # (Auto) 1.5 H Eos # (Auto) 0.0 Baso # (Auto) 0.0 Abs Immat Gran (auto) 0.09 H Absolute Neuts (auto) 12.1 H Absolute Nucleated RBC 0.000 Nucleated RBC % 0.0 PT 13.6 INR 1.0 APTT 30.9 Activ Coag Time Kaolin Sodium 142 Potassium 4.0 Chloride 102 Carbon Dioxide 33 H Anion Gap 7 BUN 19 Creatinine 1.13 Estim Creat Clear Calc 48 Estimated GFR > 60 Glucose 124 H Hemoglobin A1c Calcium 9.4 Magnesium Total Bilirubin 0.5 AST 351 H ALT 64 H Alkaline Phosphatase 100 Total Creatine Kinase Troponin I 56.800 H* 67.600 H* Total Protein 8.0 Albumin 4.1 Triglycerides Cholesterol LDL Cholesterol Direct HDL Direct Lipase 29 Cancelled TSH (Reflex) Free T4 01/06/25 01/06/25 01/07/25 20:13 21:43 04:28 WBC 13.3 H RBC 4.67 Hgb 14.6 Hct 44.3 MCV 94.9 MCH 31.3 MCHC 33.0 RDW 21.5 H Plt Count 193 MPV 10.7 H Immature Gran % (Auto) 0.4 Neut % (Auto) 73.8 H Lymph % (Auto) 13.1 L Thayer % (Auto) 12.4 H Eos % (Auto) 0.1 Baso % (Auto) 0.2 Lymph # (Auto) 1.74 Thayer # (Auto) 1.7 H Eos # (Auto) 0.0 Baso # (Auto) 0.0 Abs Immat Gran (auto) 0.05 H Absolute Neuts (auto) 9.8 H Absolute Nucleated RBC 0.000 Nucleated RBC % 0.0 PT INR APTT Activ Coag Time Kaolin 233 H Sodium 137 139 Potassium 4.0 4.1 Chloride 104 106 Carbon Dioxide 25 27 Anion Gap 8 6 BUN 16 16 Creatinine 0.95 0.99 Estim Creat Clear Calc 56 54 Estimated GFR > 60 > 60 Glucose 136 H 132 H Hemoglobin A1c 5.7 Calcium 8.8 8.5 Magnesium 2.0 2.0 Total Bilirubin 0.9 AST 219 H ALT 54 H Alkaline Phosphatase 92 Total Creatine Kinase 1187 H Troponin I > 80.000 H* Total Protein 7.0 Albumin 3.7 Triglycerides 90 Cholesterol 141 LDL Cholesterol Direct 31 HDL Direct 70 Lipase TSH (Reflex) 27.000 H Free T4 0.73 L
[2025-01-07] MEDS: PANTOPRAZOLE 40 MG TABLET PO ×2 (09:12→20:36)
[2025-01-07] MEDS: TICAGRELOR 90 MG TABLET PO ×2 (09:12→20:36)
[2025-01-07] MEDS: METOPROLOL TARTRATE 25 MG TABLET PO ×2 (09:12→20:36)
[2025-01-07] MEDS: ASPIRIN 81 MG ENTERIC TABLET PO (09:12)
[2025-01-07] MEDS: GABAPENTIN 300 MG CAPSULE 600 MG PO ×3 (09:12→16:59)
[2025-01-07] MEDS: MIRABEGRON 25 MG ER TABLET PO (09:13)
[2025-01-07] MEDS: LOSARTAN POTASSIUM 25 MG TABLET PO (09:13)
[2025-01-07] MEDS: FERROUS SULFATE 325 MG TABLET DR PO ×2 (09:13→16:59)
[2025-01-07] MEDS: CHOLECALCIFEROL 1,000 UNITS TABLET 2000 UNITS PO (09:13)
[2025-01-07] MEDS: LEVOTHYROXINE SODIUM 100 MCG TABLET PO (09:14)
[2025-01-07] MEDS: LEVOTHYROXINE SODIUM 75 MCG TABLET PO (09:14)
[2025-01-07] MEDS: SODIUM CHLORIDE 0.9% IV 1,000 ML 100 ML IV CONT (09:46)
[2025-01-07 16:53] LABS: Creatine Kinase 579 U/L (55-170)
[2025-01-07] MEDS: ROSUVASTATIN 20 MG TABLET 40 MG PO (16:59)
--- NOTE | 2025-01-07 17:39 | PC.NURSE ---
This patient, Abrahan Gtz Jr., was transferred to [[id number] ] on 01/07/25 at 1739. Personal belongings sent with patient. Report given to [ Lesvia rogers]. Appropriate documentation sent with patient.
--- NOTE | 2025-01-07 17:44 | P.PNIM_ITS ---
Progress Note: A&P Assessment and Plan (1) Non-ST elevation myocardial infarction (NSTEMI): Code(s): I21.4 - Non-ST elevation (NSTEMI) myocardial infarction Status: Acute Assessment and Plan: The patient presented to the ED with complaints of nausea, vomiting, and chest pain EKG shows sinus rhythm with PVCs, ST deviation with moderate T wave changes in the lateral leads. Troponin climbed to >80. LHC showing diffuse disease with a 99% thrombotic lesion in the proximal ramus intermedius with EVAN 2 flow. Patient PCI with CATHERINE placement with good results. He tolerated the procedure well. He has been started on appropriate medications including aspirin, losartan, Brilinta, Crestor and Lopressor. Consider cardiac rehab (2) Elevated LFTs: Code(s): R79.89 - Other specified abnormal findings of blood chemistry Status: Acute Assessment and Plan: AST 351 and ALT is 64 present on admission. Total CK was elevated at 1187. Could be related to the acute CA. could be related to statin therapy. Repeat levels trending downward. Check hepatitis panel. Monitor closely on Crestor. (3) Dyslipidemia: Code(s): E78.5 - Hyperlipidemia, unspecified Status: Acute Assessment and Plan: Triglycerides 90, cholesterol 141, LDL 31 and HDL 70. LFTs as mentioned above. Crestor has been resumed but monitor closely given these findings. (4) Hypothyroidism: Code(s): E03.9 - Hypothyroidism, unspecified Status: Acute Assessment and Plan: TSH 27. Free T4 is low at 0.7. Patient is on levothyroxine 150 mcg daily. Will advance his levothyroxine today. (5) Rhabdomyolysis: Code(s): M62.82 - Rhabdomyolysis Status: Acute Assessment and Plan: Total CK is 1187. Could be related to Crestor. Will start IV fluids. Follow levels. Plan DVT prophylaxis -SCDs Code status -full Disp - Start PT/OT Subjective Date/time seen: 01/07/25 17:44 Interval history: 79yo male with stroke with resultant mild memory loss and left upper extremity weakness, infrarenal abdominal aortic aneurysm with penetrating ulcer measuring 3.0 cm in September 2023, diastolic dysfunction, hypertension, hyperlipidemia, hypothyroidism, esophageal stricture status post dilatation, gastroesophageal reflux disease, Noemy fundoplication, and arthritis who presented to the emergency department via private vehicle with complaints of nausea, vomiting, and chest pain. Patient is feeling better. No chest pain or shortness of breath. Eating okay. Exam Narrative: AF 98.0 108/66 58 21 99% ra Gen - NARD Chest - CTA bilaterally, nml RR CV - RRR S1/S2. Tele showing PVCs. Abd - Soft, NT/ND, Positive BS Ext - No pedal edema. Rt groin dressing clean, dry and intact. Psych - Nml mood and affect Skin - Warm and dry Objective Data Vital Signs Vital Signs: Vital Signs - 24 hr 01/06/25 18:00 01/06/25 20:45 01/06/25 20:58 Temperature 97.8 F Pulse Rate 68 69 69 Respiratory Rate 16 17 Blood Pressure 120/66 122/78 Pulse Oximetry 95 95 Oxygen Delivery 01/06/25 21:00 01/06/25 21:13 01/06/25 21:43 Temperature Pulse Rate 70 99 Respiratory Rate 12 Blood Pressure 122/82 127/62 Pulse Oximetry 96 97 Oxygen Delivery Room Air 01/06/25 22:00 01/06/25 22:13 01/06/25 22:26 Temperature Pulse Rate 74 74 75 Respiratory Rate Blood Pressure 123/79 Pulse Oximetry 95 Oxygen Delivery 01/06/25 23:13 01/07/25 00:00 01/07/25 00:00 Temperature Pulse Rate 64 63 Respiratory Rate 22 H Blood Pressure 129/76 Pulse Oximetry 93 Oxygen Delivery Room Air 01/07/25 00:13 01/07/25 01:13 01/07/25 02:00 Temperature 98.0 F Pulse Rate 64 66 59 L Respiratory Rate 26 H 15 Blood Pressure 126/71 119/71 Pulse Oximetry 97 99 Oxygen Delivery 01/07/25 02:13 01/07/25 03:13 01/07/25 04:00 Temperature Pulse Rate 59 L 60 Respiratory Rate 22 H 21 H Blood Pressure 117/77 116/71 Pulse Oximetry 98 99 Oxygen Delivery Room Air 01/07/25 04:00 01/07/25 04:00 01/07/25 05:00 Temperature 97.8 F Pulse Rate 59 L 59 L 64 Respiratory Rate 15 16 Blood Pressure 113/85 114/70 Pulse Oximetry 97 100 Oxygen Delivery 01/07/25 06:00 01/07/25 08:00 01/07/25 08:00 Temperature 97.9 F Pulse Rate 66 67 63 Respiratory Rate 18 Blood Pressure 116/83 Pulse Oximetry 97 Oxygen Delivery 01/07/25 09:12 01/07/25 10:00 01/07/25 12:00 Temperature Pulse Rate 62 57 L 66 Respiratory Rate Blood Pressure Pulse Oximetry Oxygen Delivery 01/07/25 12:00 01/07/25 14:00 01/07/25 16:00 Temperature 98 F Pulse Rate 56 L 60 59 L Respiratory Rate 15 21 H Blood Pressure 104/71 108/66 Pulse Oximetry 97 99 Oxygen Delivery 01/07/25 16:00 Temperature Pulse Rate 58 L Respiratory Rate Blood Pressure Pulse Oximetry Oxygen Delivery Intake/Output Intake/Output: Intake & Output 01/04/25 01/05/25 01/06/25 01/07/25 23:59 23:59 23:59 23:59 Intake Total 1000 2140 Output Total 250 Balance 1000 1890 Meds/Results Medications: Active Medications Generic Name Dose Route Start Last Admin Trade Name Freq PRN Reason Stop Dose Admin Acetaminophen 650 mg 01/06/25 16:14 Acetaminophen 325 Mg Tablet PO Q4H PRN Mild Pain (1-3) or Fever Hydrocodone Bitart/Acetaminophen 1 tab 01/06/25 16:14 Hydrocodone/Acetaminophen (*Crx) 5-325 Mg Tablet PO Q4H PRN Pain Rated 4-6 Aspirin 81 mg 01/07/25 09:00 01/07/25 09:12 Aspirin 81 Mg Enteric Tablet PO 81 mg QAM AIMEE Administration Dextrose 12.5 gm 01/06/25 16:27 Dextrose 50% 25 Gm/50 Ml Syringe IV PUSH PRN PRN Hypoglycemia Protocol Donepezil HCl 10 mg 01/07/25 21:00 Donepezil Hcl 10 Mg Tablet PO QHS AIMEE Ferrous Sulfate 325 mg 01/07/25 08:00 01/07/25 16:59 Ferrous Sulfate [address] PO 325 mg BIDWM AIMEE Administration Gabapentin 600 mg 01/07/25 09:00 01/07/25 16:59 Gabapentin 300 Mg Capsule PO 600 mg TID AIMEE Administration Glucagon 1 mg 01/06/25 16:27 Glucagon For Inj 1 Mg Vial IM PRN PRN Hypoglycemia Protocol Glucose 15 gm 01/06/25 16:27 Glucose Oral Gel 15 Gm Of Glucse In 37.5 Gm Tube PO PRN PRN Hypoglycemia Protocol Dextrose 1,000 mls @ 100 mls/hr 01/06/25 16:27 Dextrose 5% 1,000 Ml IVPB PRN PRN Hypoglycemia Protocol Sodium Chloride 1,000 mls @ 100 mls/hr 01/07/25 08:10 01/07/25 09:46 Normal Saline Iv IV CONT 01/07/25 18:09 100 mls/hr .Q10H AIMEE Administration Levothyroxine Sodium 75 mcg 01/07/25 08:20 01/07/25 09:14 Levothyroxine Sodium 75 Mcg Tablet PO 75 mcg DAILY@0630 AIMEE Administration Levothyroxine Sodium 100 mcg 01/07/25 08:20 01/07/25 09:14 Levothyroxine Sodium 100 Mcg Tablet PO 100 mcg DAILY@0630 AIMEE Administration Losartan Potassium 25 mg 01/07/25 09:00 01/07/25 09:13 Losartan Potassium 25 Mg Tablet PO 25 mg DAILY AIMEE Administration Melatonin 10 mg 01/07/25 08:06 Melatonin 5 Mg Tablet PO HS PRN Sleep Metoprolol Tartrate 25 mg 01/06/25 22:20 01/07/25 09:12 Metoprolol Tartrate 25 Mg Tablet PO 25 mg Q12HR AIMEE Administration Mirabegron 25 mg 01/07/25 09:00 01/07/25 09:13 Mirabegron 25 Mg Er Tablet PO 25 mg DAILY AIMEE Administration Nitroglycerin 0.4 mg 01/06/25 16:14 01/06/25 17:48 Nitroglycerin Sl 0.4 Mg Tablet SUBLINGUAL 0.4 mg Q5MIN PRN Administration Chest Pain Pantoprazole Sodium 40 mg 01/07/25 09:00 01/07/25 09:12 Pantoprazole 40 Mg Tablet PO 40 mg Q12HR AIMEE Administration Perflutren Lipid Microsphere 0 ml 01/06/25 16:07 Perflutren Lipid Microspheres 1.5 Ml Vial Diluted To 10 Ml Total Volume IV PUSH 01/09/25 16:07 ONCE PRN adequate visualization Protocol Rosuvastatin Calcium 40 mg 01/07/25 18:00 01/07/25 16:59 Rosuvastatin 20 Mg Tablet PO 40 mg EVENING AIMEE Administration Tamsulosin HCl 0.4 mg 01/07/25 21:00 Tamsulosin Hcl 0.4 Mg Capsule PO HS [facility] Ticagrelor 90 mg 01/07/25 09:00 01/07/25 09:12 Ticagrelor 90 Mg Tablet PO 90 mg Q12HR AIMEE Administration Vitamin D 2,000 units 01/07/25 09:00 01/07/25 09:13 Cholecalciferol 1,000 Units Tablet PO 2,000 units DAILY AIMEE Administration Radiology Results: ITS Impressions Upper Quadrant Ultrasound 01/06/25 15:11 IMPRESSION: Hepatic cyst. No additional abnormalities detected. Chest X-Ray 01/06/25 15:46 IMPRESSION: No focal infiltrate or effusion. Large hiatal hernia redemonstrated. Labs Labs: Laboratory Results - last 24 hr 01/06/25 01/06/25 01/07/25 20:13 21:43 04:28 WBC 13.3 H RBC 4.67 Hgb 14.6 Hct 44.3 MCV 94.9 MCH 31.3 MCHC 33.0 RDW 21.5 H Plt Count 193 MPV 10.7 H Immature Gran % (Auto) 0.4 Neut % (Auto) 73.8 H Lymph % (Auto) 13.[address] [place] % (Auto) 12.4 H Eos % (Auto) 0.1 Baso % (Auto) 0.2 Lymph # (Auto) 1.74 [place] # (Auto) 1.7 H Eos # (Auto) 0.0 Baso # (Auto) 0.0 Abs Immat Gran (auto) 0.05 H Absolute Neuts (auto) 9.8 H Absolute Nucleated RBC 0.000 Nucleated RBC % 0.0 Activ Coag Time Kaolin 233 H Sodium 137 139 Potassium 4.0 4.1 Chloride 104 106 Carbon Dioxide 25 27 Anion Gap 8 6 BUN 16 16 Creatinine 0.95 0.99 Estim Creat Clear Calc 56 54 Estimated GFR > 60 > 60 Glucose 136 H 132 H Hemoglobin A1c 5.7 Calcium 8.8 8.5 Magnesium 2.0 2.0 Total Bilirubin 0.9 AST 219 H ALT 54 H Alkaline Phosphatase 92 Total Creatine Kinase 1187 H Troponin I > 80.000 H* Total Protein 7.0 Albumin 3.7 Triglycerides 90 Cholesterol 141 LDL Cholesterol Direct 31 HDL Direct 70 TSH (Reflex) 27.000 H Free T4 0.73 L 01/07/25 16:37 WBC RBC Hgb Hct MCV MCH MCHC RDW Plt Count MPV Immature Gran % (Auto) Neut % (Auto) Lymph % (Auto) [place] % (Auto) Eos % (Auto) Baso % (Auto) Lymph # (Auto) [place] # (Auto) Eos # (Auto) Baso # (Auto) Abs Immat Gran (auto) Absolute Neuts (auto) Absolute Nucleated RBC Nucleated RBC % Activ Coag Time Kaolin Sodium Potassium Chloride Carbon Dioxide Anion Gap BUN Creatinine Estim Creat Clear Calc Estimated GFR Glucose Hemoglobin A1c Calcium Magnesium Total Bilirubin AST ALT Alkaline Phosphatase Total Creatine Kinase 579 H Troponin I Total Protein Albumin Triglycerides Cholesterol LDL Cholesterol Direct HDL Direct TSH (Reflex) Free T4
[2025-01-07] MEDS: TAMSULOSIN HCL 0.4 MG CAPSULE PO (20:35)
[2025-01-07] MEDS: DONEPEZIL HCL 10 MG TABLET PO (20:35)
[2025-01-08] VITALS (17 sets, daily range): BP systolic 93–126; BP diastolic 51–86; PULSE 49–86; RESP 14–22; TEMP 36.4–36.9; O2SAT 98–100
--- NOTE | 2025-01-08 | ECHO_ITS ---
Patient Info Name: Abrahan Gtz Age: 79 years : 1945 Gender: Male Ht: 70 in Wt: 187 lbs BSA: 2.06 m2 HR: 50 bpm BP: 93 / 51 mmHg Heart Rhythm: Sinus Rhythm Technical Quality: Fair Exam Date: 01/08/2025 9:06 AM Exam Location: Echo Lab Patient Status: Inpatient Admit Date: 01/06/2025 Staff Ordering Physician: Finn Caban DO Commercial Insurance Underwriter: Felecia Leary RDCS Attending Provider: Gregorio Vivas MD Referring Physician: Arsh CONNER; Exam Type: CA echo dop color flow w con Study Info Indications - nstemi Complete two-dimensional, color flow and Doppler transthoracic echocardiogram is performed with contrast to opacify the left ventricle and to improve the deliniation of the left ventricle endocardial borders. Contrast/Agitated Saline Contrast/Ag. Saline: Definity Amount: 2.00 ml Administered By: Felecia Leary RDCS Existing IV Access: Yes IV Access Condition: patent with no signs of infiltration Summary 1. Definity contrast administered improved wall motion interpretation. 2. Left ventricular chamber dimension is normal. 3. There is mild concentric increased left ventricular wall thickness. 4. Left ventricular systolic function is normal, estimated at 55-60%. 5. Basal to mid lateral juwan is severely hypokinetic. 6. The left ventricular diastolic function is normal. 7. E/e' 9 is minimally elevated. 8. Left atrial chamber dimension is mildly enlarged. 9. There is moderate aortic valve sclerosis. 10. There is mild aortic valve stenosis with a peak velocity of 161.35 cm/s, mean gradient of 5 mmHg, and aortic valve area of 1.82 cm2. 11. There is trace tricuspid valve regurgitation. 12. No pulmonary hypertension, estimated pulmonary arterial systolic pressure is 23 mmHg. Left Ventricle E/e' 9 is minimally elevated. Definity contrast administered improved wall motion interpretation. Basal to mid lateral juwan is severely hypokinetic. Left ventricular chamber dimension is normal. Left ventricular systolic function is normal, estimated at 55-60%. There is mild concentric increased left ventricular wall thickness. The left ventricular diastolic function is normal. Right Ventricle Right ventricular systolic function is normal and with normal TAPSE 2.3 cm. Right ventricular chamber dimension is normal. Left Atria Left atrial chamber dimension is mildly enlarged. Right Atria Right atrial chamber dimension is normal. Aortic Valve The aortic valve is trileaflet. There is moderate aortic valve sclerosis. There is mild aortic valve stenosis with a peak velocity of 161.35 cm/s, mean gradient of 5 mmHg, and aortic valve area of 1.82 cm2. There is no aortic valve regurgitation. Pulmonic Valve There is no pulmonic regurgitation. Mitral Valve There is no mitral valve stenosis. There is no mitral valve regurgitation. Tricuspid Valve There is trace tricuspid valve regurgitation. No pulmonary hypertension, estimated pulmonary arterial systolic pressure is 23 mmHg. Pericardium/Pleural There is no pericardial effusion. Inferior Vena Cava Normal inferior vena cava with >50% collapse upon inspiration consistent with normal right atrial pressure, 5 mmHg. Aorta The aortic root size at the sinus of Valsalva is normal. Left Ventricular Outflow Tract Name Value Normal LVOT 2D LVOT Diameter 2.12 cm LVOT Doppler LVOT Peak Gradient 3 mmHg LVOT Mean Gradient 1 mmHg LVOT VTI 15.86 cm LVOT VTI/AV VTI Ratio 0.52 LVOT Stroke Volume 55.94 ml LVOT CO 3.31 l/min LVOT CI 1.61 L/min/m2 Pulmonic Valve Name Value Normal RVOT Doppler RVOT Peak Gradient 2 mmHg PV Doppler PV Peak Gradient 6 mmHg Mitral Valve Name Value Normal MV Doppler MV Decel Irwin 217.90 cm/s2 MV PHT 0 s MV Area (PHT) 3.43 cm2 4.00-5.00 MV Diastolic Function MV E Peak Velocity 48.21 cm/s MV A Peak Velocity 28.51 cm/s MV E/A 1.69 MV Decel Time 0 s MV Annular TDI MV E/e' (Septal) 9.15 <=8.00 MV E/e' (Lateral) 10.07 <=8.00 MV E/e' (Average) 9.61 Tricuspid Valve Name Value Normal TV Regurgitation Doppler TR Peak Velocity 213.61 cm/s TR Peak Gradient 18 mmHg Estimated PAP/RSVP RA Pressure 5 mmHg <=5 PA Systolic Pressure 23 mmHg <36 RV Systolic Pressure 23 mmHg <36 Aorta Name Value Normal Ascending Aorta Ao Root Diameter (MM) 3.57 cm Ao Root Diam Index (MM) 1.73 cm/m2 Aortic Valve Name Value Normal AV Doppler AV Peak Velocity 161.35 cm/s AV Peak Gradient 10 mmHg AV Mean Gradient 5 mmHg AV VTI 30.77 cm AV Area (Cont Eq VTI) 1.82 cm2 >=3.00 AV Area (Cont Eq Anselmo) 1.76 cm2 AV Regurgitation 2D LVOT Area 3.53 cm2 Ventricles Name Value Normal LV Dimensions 2D/MM IVS Diastolic Thickness (2D) 1.22 cm 0.60-1.00 LVID Diastole (2D) 5.04 cm 4.20-5.80 LVIW Diastolic Thickness (2D) 1.18 cm 0.60-1.00 LVID Systole (2D) 3.50 cm 2.50-4.00 LVOT Diameter 2.12 cm LV Mass (2D Cubed) 236.75 g 88.00-224.00 LV Mass Index (2D Cubed) 0.01 g/cm2 0.00-0.01 Relative Wall Thickness (2D) 0.47 LV Fractional Shortening/Ejection Fraction 2D/MM LV Fractional Shortening (2D) 31 % 25-43 LV EF (2D Teichrebecaz) 58 % 52-72 LV Diastolic Volume (4C MOD) 112.80 ml LV EF (4C MOD) 54 % LV Diastolic Volume (2C MOD) 123.30 ml LV EF (2C MOD) 47 % LV Diastolic Volume (BP MOD) 119.74 ml 62.00-150.00 LV Diastolic Volume Index (BP MOD) 0.06 l/m2 0.03-0.07 LV Systolic Volume (BP MOD) 58.32 ml 21.00-61.00 LV Systolic Volume Index (BP MOD) 0.03 l/m2 0.01-0.03 LV EF (BP MOD) 51 % 52-72 LV Diastolic Length (4C) 10.03 cm LV Systolic Length (4C) 8.85 cm LV Stroke Volume (4C MOD) 60.47 ml Atria Name Value Normal LA Dimensions LA Dimension (MM) 4.93 cm 3.00-4.10 LA Volume (4C A-L) 61.24 ml LA Volume (BP A-L) 67.01 ml RA Dimensions RA Area (4C) 16.71 cm2 <=18.00 Report Signatures
[2025-01-08 04:45] LABS: Basophils Percent Auto 0.3 % (0.2-1.2); Eosinophils Absolute Auto 0.1 K/mm3 (0-0.3); Eosinophils Percent Auto 1.4 % (0-4.4); Hematocrit 35.5 % (42.0-52.0); Hemoglobin 11.8 g/dL (14.0-18.0); Immature Granulocyte Absolute 0.04 K/mm3 (0.00-0.031); Immature Granulocyte Percent A 0.4 % (0-0.5); Lymphocytes Percent Auto 17.9 % (18.3-44.2); Mean Corpuscular HGB Conc 33.2 g/dl (32-36); Mean Corpuscular Hemoglobin 31.1 pg (26-34); Mean Corpuscular Volume 93.4 fl (80-100); Mean Platelet Volume 11.2 fl (7.4-10.4); Monocytes Absolute Auto 1.3 K/mm3 (0.1-0.6); Monocytes Percent Auto 14.1 % (2.6-8.5); Neutrophils Absolute Auto 6.2 K/mm3 (1.3-6.7); Neutrophils Percent Auto 65.9 % (45.5-73.1); Platelet Count Result 172 k/mm3 (150-375); Red Cell Distribution Width 21.4 % (11.5-14.5); White Blood Count 9.5 K/mm3 (4.5-10.0)
[2025-01-08 05:09] LABS: Alanine Aminotransferase 34 U/L (6-50); Albumin Level 2.6 g/dL (3.5-5.1); Alkaline Phosphatase 72 U/L (38-126); Anion Gap 2 mmol/L (4-12); Aspartate Amino Transferase 79 U/L (17-59); Bilirubin,Total 0.6 mg/dL (0.2-1.3); Blood Urea Nitrogen 18 mg/dL (9-20); Carbon Dioxide 26 mmol/L (22-30); Chloride 106 mmol/L (98-107); Creatine Kinase 341 U/L (55-170); Estimated CRCL calculation 51 ml/min; Estimated Glomerular Filt Rate > 60; Glucose 104 mg/dL (65-110); Potassium 3.8 mmol/L (3.4-5.0); Sodium 134 mmol/L (137-145)
[2025-01-08] MEDS: LEVOTHYROXINE SODIUM 75 MCG TABLET PO (05:44)
[2025-01-08] MEDS: LEVOTHYROXINE SODIUM 100 MCG TABLET PO (05:44)
[2025-01-08 07:43] LABS: Hepatitis B Surface Antigen Negative (Negative)
[2025-01-08 07:45] LABS: HAV RESULT Negative (Negative); Hepatitis B Core IgM Result Negative (Negative)
[2025-01-08 07:51] LABS: Hepatitis C Virus Antibody Negative (Negative)
--- NOTE | 2025-01-08 07:58 | P.PNCA_ITS ---
Progress Note: A&P Assessment and Plan (1) Non-ST elevation myocardial infarction (NSTEMI): Code(s): I21.4 - Non-ST elevation (NSTEMI) myocardial infarction Status: Acute Assessment and Plan: Initial troponin significantly elevated at 56.8, then 67, then post cath >80. EKG shows ST depression in anterior leads. Patient was having more chest pains despite medication and electrical instability with PVC's and ventricular bigeminy, and therefore [facility] was activated for urgent LHC. Dr. Matthews was consulted for it and patient taken to [facility] on 01/06/25 showing 99% thrombotic stenosis of prox large Ramus with EVAN 2 flow; PCI to Ramus with good results and EVAN 3 flow. Mid LAD 60-70% which is in proximity to calcified ostial 1st Diag 70% with large inferior ostial branch 90% heavily calcified followed by diffuse 50% stenosis, 2nd diag small vessel (<2 mm) with long diffuse prox 90% stenosis, distal LAD with diffuse 70-90% wrapping around apex, ostial LCx 10%, RCA mid 40-50%, distal RCA 30-50%. On Metoprolol and Losartan, aspirin, Brilinta and Rosuvastatin. Decrease dose of Metoprolol 12.5 mg and Losartan 12.5 mg due to low normal BP and feeling weak. Monitor BP. Obtain echo. Anticipate discharge tomorrow. (2) Dyslipidemia: Code(s): E78.5 - Hyperlipidemia, unspecified Status: Acute Assessment and Plan: On Rosuvastatin. Monitor LFT and OK to continue since levels improving. (3) AAA (abdominal aortic aneurysm): Code(s): I71.40 - Abdominal aortic aneurysm, without rupture, unspecified Status: Acute Assessment and Plan: Stable. (4) Stroke: Code(s): I63.9 - Cerebral infarction, unspecified Status: Acute Subjective Date/time seen: 01/08/25 07:58 Interval history: No more chest pains, no sob. He feels weak. Exam Const: General: cooperative, healthy appearing and comfortable Orientation/consciousness: oriented to person, oriented to place and oriented to time Resp: Auscultation: clear to auscultation bilaterally, no crackles, no rales, no rhonchi and no wheezes Cardio: Rate: regular rate Rhythm: regular rhythm Heart sounds: no murmurs Peripheral pulses: dorsalis pedis present Neuro: General: oriented to person, oriented to place and oriented to time Extrem: Right lower extremity: no edema Left lower extremity: no edema Objective Data Vital Signs Vital Signs: Vital Signs - 24 hr 01/07/25 08:00 01/07/25 08:00 01/07/25 09:12 Temperature 97.9 F Pulse Rate 67 63 62 Respiratory Rate 18 Blood Pressure 116/83 Pulse Oximetry 97 Oxygen Delivery 01/07/25 10:00 01/07/25 12:00 01/07/25 12:00 Temperature Pulse Rate 57 L 66 56 L Respiratory Rate 15 Blood Pressure 104/71 Pulse Oximetry 97 Oxygen Delivery 01/07/25 14:00 01/07/25 16:00 01/07/25 16:00 Temperature 98 F Pulse Rate 60 59 L 58 L Respiratory Rate 21 H Blood Pressure 108/66 Pulse Oximetry 99 Oxygen Delivery 01/07/25 17:30 01/07/25 18:00 01/07/25 20:00 Temperature 98.1 F 98.4 F Pulse Rate 64 66 59 L Respiratory Rate 16 16 Blood Pressure 96/64 L 100/62 Pulse Oximetry 99 100 Oxygen Delivery 01/07/25 20:00 01/07/25 20:00 01/07/25 20:36 Temperature Pulse Rate 60 60 58 L Respiratory Rate 16 Blood Pressure Pulse Oximetry 100 Oxygen Delivery Room Air 01/07/25 21:46 01/07/25 23:54 01/08/25 00:00 Temperature 97.6 F Pulse Rate 54 L 56 L 54 L Respiratory Rate 16 16 Blood Pressure 92/57 L Pulse Oximetry 99 99 Oxygen Delivery Room Air 01/08/25 00:00 01/08/25 02:00 01/08/25 04:00 Temperature 98.0 F Pulse Rate 54 L 52 L 63 Respiratory Rate 18 Blood Pressure 93/51 L Pulse Oximetry 100 Oxygen Delivery 01/08/25 04:00 01/08/25 04:00 01/08/25 06:00 Temperature Pulse Rate 50 L 50 L 49 L Respiratory Rate 18 Blood Pressure Pulse Oximetry 100 Oxygen Delivery Room Air 01/08/25 07:52 Temperature 98.4 F Pulse Rate 60 Respiratory Rate 22 H Blood Pressure 104/63 Pulse Oximetry 100 Oxygen Delivery Intake/Output Intake/Output: Intake & Output 01/05/25 01/06/25 01/07/25 01/08/25 23:59 23:59 23:59 23:59 Intake Total 1000 2140 100 Output Total 250 50 Balance 1000 1890 50 Meds/Results Medications: Active Medications Generic Name Dose Route Start Last Admin Trade Name Freq PRN Reason Stop Dose Admin Acetaminophen 650 mg 01/06/25 16:14 Acetaminophen 325 Mg Tablet PO Q4H PRN Mild Pain (1-3) or Fever Hydrocodone Bitart/Acetaminophen 1 tab 01/06/25 16:14 Hydrocodone/Acetaminophen (*Crx) 5-325 Mg Tablet PO Q4H PRN Pain Rated 4-6 Aspirin 81 mg 01/07/25 09:00 01/07/25 09:12 Aspirin 81 Mg Enteric Tablet PO 81 mg QAM AIMEE Administration Dextrose 12.5 gm 01/06/25 16:27 Dextrose 50% 25 Gm/50 Ml Syringe IV PUSH PRN PRN Hypoglycemia Protocol Donepezil HCl 10 mg 01/07/25 21:00 01/07/25 20:35 Donepezil Hcl 10 Mg Tablet PO 10 mg QHS AIMEE Administration Ferrous Sulfate 325 mg 01/07/25 08:00 01/07/25 16:59 Ferrous Sulfate [address] PO 325 mg BIDWM AIMEE Administration Gabapentin 600 mg 01/07/25 09:00 01/07/25 16:59 Gabapentin 300 Mg Capsule PO 600 mg TID AIMEE Administration Glucagon 1 mg 01/06/25 16:27 Glucagon For Inj 1 Mg Vial IM PRN PRN Hypoglycemia Protocol Glucose 15 gm 01/06/25 16:27 Glucose Oral Gel 15 Gm Of Glucse In 37.5 Gm Tube PO PRN PRN Hypoglycemia Protocol Dextrose 1,000 mls @ 100 mls/hr 01/06/25 16:27 Dextrose 5% 1,000 Ml IVPB PRN PRN Hypoglycemia Protocol Levothyroxine Sodium 75 mcg 01/07/25 08:20 01/08/25 05:44 Levothyroxine Sodium 75 Mcg Tablet PO 75 mcg DAILY@0630 AIMEE Administration Levothyroxine Sodium 100 mcg 01/07/25 08:20 01/08/25 05:44 Levothyroxine Sodium 100 Mcg Tablet PO 100 mcg DAILY@0630 AIMEE Administration Losartan Potassium 12.5 mg 01/08/25 09:00 Losartan Potassium 12.5 Mg Tablet PO DAILY AIMEE Melatonin 10 mg 01/07/25 08:06 Melatonin 5 Mg Tablet PO HS PRN Sleep Metoprolol Tartrate 12.5 mg 01/08/25 09:00 Metoprolol Tartrate 12.5 Mg Tablet PO Q12HR AIMEE Mirabegron 25 mg 01/07/25 09:00 01/07/25 09:13 Mirabegron 25 Mg Er Tablet PO 25 mg DAILY AIMEE Administration Nitroglycerin 0.4 mg 01/06/25 16:14 01/06/25 17:48 Nitroglycerin Sl 0.4 Mg Tablet SUBLINGUAL 0.4 mg Q5MIN PRN Administration Chest Pain Pantoprazole Sodium 40 mg 01/07/25 09:00 01/07/25 20:36 Pantoprazole 40 Mg Tablet PO 40 mg Q12HR AIMEE Administration Perflutren Lipid Microsphere 0 ml 01/06/25 16:07 Perflutren Lipid Microspheres 1.5 Ml Vial Diluted To 10 Ml Total Volume IV PUSH 01/09/25 16:07 ONCE PRN adequate visualization Protocol Rosuvastatin Calcium 40 mg 01/07/25 18:00 01/07/25 16:59 Rosuvastatin 20 Mg Tablet PO 40 mg EVENING AIMEE Administration Tamsulosin HCl 0.4 mg 01/07/25 21:00 01/07/25 20:35 Tamsulosin Hcl 0.4 Mg Capsule PO 0.4 mg HS AIMEE Administration Ticagrelor 90 mg 01/07/25 09:00 01/07/25 20:36 Ticagrelor 90 Mg Tablet PO 90 mg Q12HR AIMEE Administration Vitamin D 2,000 units 01/07/25 09:00 01/07/25 09:13 Cholecalciferol 1,000 Units Tablet PO 2,000 units DAILY AIMEE Administration Radiology Results: ITS Impressions Upper Quadrant Ultrasound 01/06/25 15:11 IMPRESSION: Hepatic cyst. No additional abnormalities detected. Chest X-Ray 01/06/25 15:46 IMPRESSION: No focal infiltrate or effusion. Large hiatal hernia redemonstrated. Labs Labs: Laboratory Results - last 24 hr 01/07/25 01/08/25 16:37 04:11 WBC 9.5 RBC 3.80 L Hgb 11.8 L Hct 35.5 L MCV 93.4 MCH 31.1 MCHC 33.2 RDW 21.4 H Plt Count 172 MPV 11.2 H Immature Gran % (Auto) 0.4 Neut % (Auto) 65.9 Lymph % (Auto) 17.9 L [place] % (Auto) 14.1 H Eos % (Auto) 1.4 Baso % (Auto) 0.3 Lymph # (Auto) 1.70 [place] # (Auto) 1.3 H Eos # (Auto) 0.1 Baso # (Auto) 0.0 Abs Immat Gran (auto) 0.04 H Absolute Neuts (auto) 6.2 Absolute Nucleated RBC 0.000 Nucleated RBC % 0.0 Sodium 134 L Potassium 3.8 Chloride 106 Carbon Dioxide 26 Anion Gap 2 L BUN 18 Creatinine 1.06 Estim Creat Clear Calc 51 Estimated GFR > 60 Glucose 104 Calcium 8.0 L Total Bilirubin 0.6 AST 79 H ALT 34 Alkaline Phosphatase 72 Total Creatine Kinase 579 H 341 H Total Protein 5.0 L Albumin 2.6 L Hepatitis A IgM Ab Negative Hep Bs Antigen Negative Hep B Core IgM Ab Negative Hepatitis C Ab Screen Negative
[2025-01-08] MEDS: CHOLECALCIFEROL 1,000 UNITS TABLET 2000 UNITS PO (08:11)
[2025-01-08] MEDS: METOPROLOL TARTRATE 12.5 MG TABLET PO ×2 (08:11→20:18)
[2025-01-08] MEDS: GABAPENTIN 300 MG CAPSULE 600 MG PO ×3 (08:11→16:15)
[2025-01-08] MEDS: TICAGRELOR 90 MG TABLET PO ×2 (08:12→20:18)
[2025-01-08] MEDS: PANTOPRAZOLE 40 MG TABLET PO ×2 (08:12→20:18)
[2025-01-08] MEDS: LOSARTAN POTASSIUM 12.5 MG TABLET PO (08:12)
[2025-01-08] MEDS: ASPIRIN 81 MG ENTERIC TABLET PO (08:12)
[2025-01-08] MEDS: FERROUS SULFATE 325 MG TABLET DR PO ×2 (08:13→16:15)
[2025-01-08] MEDS: MIRABEGRON 25 MG ER TABLET PO (08:13)
[2025-01-08] MEDS: PERFLUTREN LIPID MICROSPHERES 1.5 ML VIAL DILUTED TO 10 ML TOTAL VOLUME IV PUSH (09:25)
--- NOTE | 2025-01-08 11:39 | IVDEFINITY ---
Prior to administration of IV Definity the patient was educated on the risks and benefits of the imaging enhancing agent including potential adverse side effects. The patient verbalized understanding. Allergies were verified. No exclusion criteria were identified and at least one of the following inclusion criteria were met: 1) physician request, 2) patient technically difficult to image (per the [place] [employer] guidelines of two or more segments not discernable within the apical view), or 3) questionable left ventricular function. ?
--- NOTE | 2025-01-08 12:38 | P.PNIM_ITS ---
Progress Note: A&P Assessment and Plan (1) Non-ST elevation myocardial infarction (NSTEMI): Code(s): I21.4 - Non-ST elevation (NSTEMI) myocardial infarction Status: Acute Assessment and Plan: The patient presented to the ED with complaints of nausea, vomiting, and chest pain EKG shows sinus rhythm with PVCs, ST deviation with moderate T wave changes in the lateral leads. Troponin climbed to >80. LHC showing diffuse disease with a 99% thrombotic lesion in the proximal ramus intermedius with EVAN 2 flow. Patient PCI with CATHERINE placement with good results. He tolerated the procedure well. He has been started on appropriate medications including aspirin, losartan, Brilinta, Crestor and Lopressor. Consider cardiac rehab (2) Elevated LFTs: Code(s): R79.89 - Other specified abnormal findings of blood chemistry Status: Acute Assessment and Plan: AST 351 and ALT is 64 present on admission. Total CK was elevated at 1187. Could be related to the acute NC. could be related to statin therapy. Repeat levels trending downward. Hepatitis panel negative. Monitor closely on Crestor. (3) Dyslipidemia: Code(s): E78.5 - Hyperlipidemia, unspecified Status: Acute Assessment and Plan: Triglycerides 90, cholesterol 141, LDL 31 and HDL 70. LFTs as mentioned above. Crestor has been resumed but monitor closely given these findings. (4) Hypothyroidism: Code(s): E03.9 - Hypothyroidism, unspecified Status: Acute Assessment and Plan: TSH 27. Free T4 is low at 0.7. Patient is on levothyroxine 150 mcg daily. Levothyroxine advanced Will need Repeat TSH as outpatient. (5) Rhabdomyolysis: Code(s): M62.82 - Rhabdomyolysis Status: Acute Assessment and Plan: Total CK is 1187. Could be related to Crestor. He was started on IV fluids and level much better at 341. Follow levels. Plan DVT prophylaxis -SCDs Code status -full Disp - PT/OT; home with family Subjective Date/time seen: 01/08/25 12:38 Interval history: 79yo male with stroke with resultant mild memory loss and left upper extremity weakness, infrarenal abdominal aortic aneurysm with penetrating ulcer measuring 3.0 cm in September 2023, diastolic dysfunction, hypertension, hyperlipidemia, hypothyroidism, esophageal stricture status post dilatation, gastroesophageal reflux disease, Noemy fundoplication, and arthritis who presented to the emergency department via private vehicle with complaints of nausea, vomiting, and chest pain. Patient feels ' a lot better'. Walking to the [place] and out in the [place]. No CP or SOB. no n/v. Exam Narrative: AF 97.6 126/86 66 14 100% ra Gen - NARD Chest - CTA bilaterally, nml RR CV - RRR S1/S2. Tele showing PVCs. Abd - Soft, NT/ND, Positive BS Ext - No pedal edema Psych - Nml mood and affect Skin - Warm and dry Objective Data Vital Signs Vital Signs: Vital Signs - 24 hr 01/07/25 14:00 01/07/25 16:00 01/07/25 16:00 Temperature 98 F Pulse Rate 60 59 L 58 L Respiratory Rate 21 H Blood Pressure 108/66 Pulse Oximetry 99 Oxygen Delivery 01/07/25 17:30 01/07/25 18:00 01/07/25 20:00 Temperature 98.1 F 98.4 F Pulse Rate 64 66 59 L Respiratory Rate 16 16 Blood Pressure 96/64 L 100/62 Pulse Oximetry 99 100 Oxygen Delivery 01/07/25 20:00 01/07/25 20:00 01/07/25 20:36 Temperature Pulse Rate 60 60 58 L Respiratory Rate 16 Blood Pressure Pulse Oximetry 100 Oxygen Delivery Room Air 01/07/25 21:46 01/07/25 23:54 01/08/25 00:00 Temperature 97.6 F Pulse Rate 54 L 56 L 54 L Respiratory Rate 16 16 Blood Pressure 92/57 L Pulse Oximetry 99 99 Oxygen Delivery Room Air 01/08/25 00:00 01/08/25 02:00 01/08/25 04:00 Temperature 98.0 F Pulse Rate 54 L 52 L 63 Respiratory Rate 18 Blood Pressure 93/51 L Pulse Oximetry 100 Oxygen Delivery 01/08/25 04:00 01/08/25 04:00 01/08/25 06:00 Temperature Pulse Rate 50 L 50 L 49 L Respiratory Rate 18 Blood Pressure Pulse Oximetry 100 Oxygen Delivery Room Air 01/08/25 07:52 01/08/25 08:00 01/08/25 08:11 Temperature 98.4 F Pulse Rate 60 68 70 Respiratory Rate 22 H Blood Pressure 104/63 Pulse Oximetry 100 Oxygen Delivery 01/08/25 10:00 01/08/25 10:16 01/08/25 12:00 Temperature 97.6 F Pulse Rate 63 66 Respiratory Rate 14 Blood Pressure 126/86 Pulse Oximetry 100 Oxygen Delivery Room Air Intake/Output Intake/Output: Intake & Output 01/05/25 01/06/25 01/07/25 01/08/25 23:59 23:59 23:59 23:59 Intake Total 1000 2140 814 Output Total 250 50 Balance 1000 1890 764 Meds/Results Medications: Active Medications Generic Name Dose Route Start Last Admin Trade Name Freq PRN Reason Stop Dose Admin Acetaminophen 650 mg 01/06/25 16:14 Acetaminophen 325 Mg Tablet PO Q4H PRN Mild Pain (1-3) or Fever Hydrocodone Bitart/Acetaminophen 1 tab 01/06/25 16:14 Hydrocodone/Acetaminophen (*Crx) 5-325 Mg Tablet PO Q4H PRN Pain Rated 4-6 Aspirin 81 mg 01/07/25 09:00 01/08/25 08:12 Aspirin 81 Mg Enteric Tablet PO 81 mg QAM AIMEE Administration Dextrose 12.5 gm 01/06/25 16:27 Dextrose 50% 25 Gm/50 Ml Syringe IV PUSH PRN PRN Hypoglycemia Protocol Donepezil HCl 10 mg 01/07/25 21:00 01/07/25 20:35 Donepezil Hcl 10 Mg Tablet PO 10 mg QHS AIMEE Administration Ferrous Sulfate 325 mg 01/07/25 08:00 01/08/25 08:13 Ferrous Sulfate [address] PO 325 mg BIDWM AIMEE Administration Gabapentin 600 mg 01/07/25 09:00 01/08/25 08:11 Gabapentin 300 Mg Capsule PO 600 mg TID AIMEE Administration Glucagon 1 mg 01/06/25 16:27 Glucagon For Inj 1 Mg Vial IM PRN PRN Hypoglycemia Protocol Glucose 15 gm 01/06/25 16:27 Glucose Oral Gel 15 Gm Of Glucse In 37.5 Gm Tube PO PRN PRN Hypoglycemia Protocol Dextrose 1,000 mls @ 100 mls/hr 01/06/25 16:27 Dextrose 5% 1,000 Ml IVPB PRN PRN Hypoglycemia Protocol Levothyroxine Sodium 75 mcg 01/07/25 08:20 01/08/25 05:44 Levothyroxine Sodium 75 Mcg Tablet PO 75 mcg DAILY@0630 AIMEE Administration Levothyroxine Sodium 100 mcg 01/07/25 08:20 01/08/25 05:44 Levothyroxine Sodium 100 Mcg Tablet PO 100 mcg DAILY@0630 AIMEE Administration Losartan Potassium 12.5 mg 01/08/25 09:00 01/08/25 08:12 Losartan Potassium 12.5 Mg Tablet PO 12.5 mg DAILY AIMEE Administration Melatonin 10 mg 01/07/25 08:06 Melatonin 5 Mg Tablet PO HS PRN Sleep Metoprolol Tartrate 12.5 mg 01/08/25 09:00 01/08/25 08:11 Metoprolol Tartrate 12.5 Mg Tablet PO 12.5 mg Q12HR AIMEE Administration Mirabegron 25 mg 01/07/25 09:00 01/08/25 08:13 Mirabegron 25 Mg Er Tablet PO 25 mg DAILY AIMEE Administration Nitroglycerin 0.4 mg 01/06/25 16:14 01/06/25 17:48 Nitroglycerin Sl 0.4 Mg Tablet SUBLINGUAL 0.4 mg Q5MIN PRN Administration Chest Pain Pantoprazole Sodium 40 mg 01/07/25 09:00 01/08/25 08:12 Pantoprazole 40 Mg Tablet PO 40 mg Q12HR AIMEE Administration Rosuvastatin Calcium 40 mg 01/07/25 18:00 01/07/25 16:59 Rosuvastatin 20 Mg Tablet PO 40 mg EVENING AIMEE Administration Tamsulosin HCl 0.4 mg 01/07/25 21:00 01/07/25 20:35 Tamsulosin Hcl 0.4 Mg Capsule PO 0.4 mg HS AIMEE Administration Ticagrelor 90 mg 01/07/25 09:00 01/08/25 08:12 Ticagrelor 90 Mg Tablet PO 90 mg Q12HR AIMEE Administration Vitamin D 2,000 units 01/07/25 09:00 01/08/25 08:11 Cholecalciferol 1,000 Units Tablet PO 2,000 units DAILY AIMEE Administration Radiology Results: ITS Impressions Upper Quadrant Ultrasound 01/06/25 15:11 IMPRESSION: Hepatic cyst. No additional abnormalities detected. Chest X-Ray 01/06/25 15:46 IMPRESSION: No focal infiltrate or effusion. Large hiatal hernia redemonstrated. Labs Labs: Laboratory Results - last 24 hr 01/07/25 01/08/25 16:37 04:11 WBC 9.5 RBC 3.80 L Hgb 11.8 L Hct 35.5 L MCV 93.4 MCH 31.1 MCHC 33.2 RDW 21.4 H Plt Count 172 MPV 11.2 H Immature Gran % (Auto) 0.4 Neut % (Auto) 65.9 Lymph % (Auto) 17.9 L [place] % (Auto) 14.1 H Eos % (Auto) 1.4 Baso % (Auto) 0.3 Lymph # (Auto) 1.70 [place] # (Auto) 1.3 H Eos # (Auto) 0.1 Baso # (Auto) 0.0 Abs Immat Gran (auto) 0.04 H Absolute Neuts (auto) 6.2 Absolute Nucleated RBC 0.000 Nucleated RBC % 0.0 Sodium 134 L Potassium 3.8 Chloride 106 Carbon Dioxide 26 Anion Gap 2 L BUN 18 Creatinine 1.06 Estim Creat Clear Calc 51 Estimated GFR > 60 Glucose 104 Calcium 8.0 L Total Bilirubin 0.6 AST 79 H ALT 34 Alkaline Phosphatase 72 Total Creatine Kinase 579 H 341 H Total Protein 5.0 L Albumin 2.6 L Hepatitis A IgM Ab Negative Hep Bs Antigen Negative Hep B Core IgM Ab Negative Hepatitis C Ab Screen Negative
[2025-01-08] MEDS: ROSUVASTATIN 20 MG TABLET 40 MG PO (17:53)
[2025-01-08] MEDS: DONEPEZIL HCL 10 MG TABLET PO (20:18)
[2025-01-08] MEDS: TAMSULOSIN HCL 0.4 MG CAPSULE PO (20:18)
[2025-01-09] VITALS (7 sets, daily range): BP systolic 100–110; BP diastolic 63–73; PULSE 66–88; RESP 18–20; TEMP 36.7; O2SAT 98–100
[2025-01-09] MEDS: HYDROcodone/acetaminophen (*CRX) 5-325 MG TABLET 1 TAB PO (03:33)
[2025-01-09 04:42] LABS: Alanine Aminotransferase 39 U/L (6-50); Albumin Level 2.6 g/dL (3.5-5.1); Alkaline Phosphatase 71 U/L (38-126); Anion Gap 3 mmol/L (4-12); Aspartate Amino Transferase 62 U/L (17-59); Bilirubin,Total 0.6 mg/dL (0.2-1.3); Blood Urea Nitrogen 19 mg/dL (9-20); Calcium 7.7 mg/dL (8.4-10.2); Carbon Dioxide 26 mmol/L (22-30); Chloride 106 mmol/L (98-107); Creatine Kinase 178 U/L (55-170); Estimated CRCL calculation 48 ml/min; Estimated Glomerular Filt Rate > 60; Glucose 105 mg/dL (65-110); Potassium 3.7 mmol/L (3.4-5.0); Sodium 135 mmol/L (137-145)
[2025-01-09] MEDS: LEVOTHYROXINE SODIUM 75 MCG TABLET PO (06:02)
[2025-01-09] MEDS: LEVOTHYROXINE SODIUM 100 MCG TABLET PO (06:02)
--- NOTE | 2025-01-09 08:07 | P.PNCA_ITS ---
Progress Note: A&P Assessment and Plan (1) Non-ST elevation myocardial infarction (NSTEMI): Code(s): I21.4 - Non-ST elevation (NSTEMI) myocardial infarction Status: Acute Assessment and Plan: Initial troponin significantly elevated at 56.8, then 67, then post cath >80. EKG shows ST depression in anterior leads. 01/08/25 Echo: EF 55-60%, mild LVH, basal to mid lateral wall is severely hypokinetic, mild LAE, mild , trace TR. Patient was having more chest pains despite medication and electrical instability with PVC's and ventricular bigeminy, and therefore [facility] was activated for urgent LHC. Dr. Matthews was consulted for it and patient taken to [facility] on 01/06/25 showing 99% thrombotic stenosis of prox large Ramus with EVAN 2 flow; PCI to Ramus with good results and EVAN 3 flow. Mid LAD 60-70% which is in proximity to calcified ostial 1st Diag 70% with large inferior ostial branch 90% heavily calcified followed by diffuse 50% stenosis, 2nd diag small vessel (<2 mm) with long diffuse prox 90% stenosis, distal LAD with diffuse 70-90% wrapping around apex, ostial LCx 10%, RCA mid 40-50%, distal RCA 30-50%. On Metoprolol and Losartan, aspirin, Brilinta and Rosuvastatin. May d/c home from cardiology standpoint and have him f/u with me in 1 week. Then will order phase II cardiac rehab. (2) Dyslipidemia: Code(s): E78.5 - Hyperlipidemia, unspecified Status: Acute Assessment and Plan: On Rosuvastatin. Monitor LFT and OK to continue since levels improving. (3) AAA (abdominal aortic aneurysm): Code(s): I71.40 - Abdominal aortic aneurysm, without rupture, unspecified Status: Acute Assessment and Plan: Stable. (4) Stroke: Code(s): I63.9 - Cerebral infarction, unspecified Status: Acute Subjective Date/time seen: 01/09/25 08:07 Interval history: No more chest pains, no sob. Exam Const: General: cooperative, healthy appearing and comfortable Orientation/consciousness: oriented to person, oriented to place and oriented to time Resp: Auscultation: clear to auscultation bilaterally, no crackles, no rales, no rhonchi and no wheezes Cardio: Rate: regular rate Rhythm: regular rhythm Heart sounds: no murmurs Peripheral pulses: dorsalis pedis present Neuro: General: oriented to person, oriented to place and oriented to time Extrem: Right lower extremity: no edema Left lower extremity: no edema Objective Data Vital Signs Vital Signs: Vital Signs - 24 hr 01/08/25 08:11 01/08/25 10:00 01/08/25 10:16 Temperature Pulse Rate 70 63 Respiratory Rate Blood Pressure Pulse Oximetry Oxygen Delivery Room Air 01/08/25 12:00 01/08/25 12:00 01/08/25 14:00 Temperature 97.6 F Pulse Rate 66 71 77 Respiratory Rate 14 Blood Pressure 126/86 Pulse Oximetry 100 Oxygen Delivery 01/08/25 16:00 01/08/25 16:00 01/08/25 18:00 Temperature 98.5 F Pulse Rate 60 67 86 Respiratory Rate 18 Blood Pressure 101/65 Pulse Oximetry 100 Oxygen Delivery 01/08/25 20:00 01/08/25 20:00 01/08/25 20:00 Temperature 98.5 F Pulse Rate 73 72 72 Respiratory Rate 16 16 Blood Pressure 103/55 L Pulse Oximetry 100 100 Oxygen Delivery Room Air 01/08/25 20:18 01/08/25 21:28 01/08/25 22:50 Temperature Pulse Rate 64 70 Respiratory Rate Blood Pressure Pulse Oximetry 99 Oxygen Delivery Room Air 01/08/25 23:55 01/09/25 00:00 01/09/25 00:00 Temperature 98.5 F Pulse Rate 77 68 68 Respiratory Rate 20 20 Blood Pressure 94/52 L Pulse Oximetry 98 98 Oxygen Delivery Room Air 01/09/25 02:00 01/09/25 04:00 01/09/25 04:00 Temperature 98.1 F Pulse Rate 72 72 66 Respiratory Rate 20 20 Blood Pressure 103/63 Pulse Oximetry 99 99 Oxygen Delivery Room Air 01/09/25 04:00 01/09/25 06:00 Temperature Pulse Rate 66 69 Respiratory Rate Blood Pressure Pulse Oximetry Oxygen Delivery Intake/Output Intake/Output: Intake & Output 01/06/25 01/07/25 01/08/25 01/09/25 23:59 23:59 23:59 23:59 Intake Total 1000 2140 1284 200 Output Total 250 50 150 Balance 1000 1890 1234 50 Meds/Results Medications: Active Medications Generic Name Dose Route Start Last Admin Trade Name Freq PRN Reason Stop Dose Admin Acetaminophen 650 mg 01/06/25 16:14 Acetaminophen 325 Mg Tablet PO Q4H PRN Mild Pain (1-3) or Fever Hydrocodone Bitart/Acetaminophen 1 tab 01/06/25 16:14 01/09/25 03:33 Hydrocodone/Acetaminophen (*Crx) 5-325 Mg Tablet PO 1 tab Q4H PRN Administration Pain Rated 4-6 Aspirin 81 mg 01/07/25 09:00 01/08/25 08:12 Aspirin 81 Mg Enteric Tablet PO 81 mg QAM AIMEE Administration Dextrose 12.5 gm 01/06/25 16:27 Dextrose 50% 25 Gm/50 Ml Syringe IV PUSH PRN PRN Hypoglycemia Protocol Docusate Sodium 100 mg 01/09/25 09:00 Docusate Sodium 100 Mg Capsule PO Q12HR AIMEE Donepezil HCl 10 mg 01/07/25 21:00 01/08/25 20:18 Donepezil Hcl 10 Mg Tablet PO 10 mg QHS AIMEE Administration Ferrous Sulfate 325 mg 01/07/25 08:00 01/08/25 16:15 Ferrous Sulfate [address] PO 325 mg BIDWM AIMEE Administration Gabapentin 600 mg 01/07/25 09:00 01/08/25 16:15 Gabapentin 300 Mg Capsule PO 600 mg TID AIMEE Administration Glucagon 1 mg 01/06/25 16:27 Glucagon For Inj 1 Mg Vial IM PRN PRN Hypoglycemia Protocol Glucose 15 gm 01/06/25 16:27 Glucose Oral Gel 15 Gm Of Glucse In 37.5 Gm Tube PO PRN PRN Hypoglycemia Protocol Dextrose 1,000 mls @ 100 mls/hr 01/06/25 16:27 Dextrose 5% 1,000 Ml IVPB PRN PRN Hypoglycemia Protocol Levothyroxine Sodium 75 mcg 01/07/25 08:20 01/09/25 06:02 Levothyroxine Sodium 75 Mcg Tablet PO 75 mcg DAILY@0630 AIMEE Administration Levothyroxine Sodium 100 mcg 01/07/25 08:20 01/09/25 06:02 Levothyroxine Sodium 100 Mcg Tablet PO 100 mcg DAILY@0630 AIMEE Administration Losartan Potassium 12.5 mg 01/08/25 09:00 01/08/25 08:12 Losartan Potassium 12.5 Mg Tablet PO 12.5 mg DAILY AIMEE Administration Melatonin 10 mg 01/07/25 08:06 Melatonin 5 Mg Tablet PO HS PRN Sleep Metoprolol Tartrate 12.5 mg 01/08/25 09:00 01/08/25 20:18 Metoprolol Tartrate 12.5 Mg Tablet PO 12.5 mg Q12HR AIMEE Administration Mirabegron 25 mg 01/07/25 09:00 01/08/25 08:13 Mirabegron 25 Mg Er Tablet PO 25 mg DAILY AIMEE Administration Nitroglycerin 0.4 mg 01/06/25 16:14 01/06/25 17:48 Nitroglycerin Sl 0.4 Mg Tablet SUBLINGUAL 0.4 mg Q5MIN PRN Administration Chest Pain Pantoprazole Sodium 40 mg 01/07/25 09:00 01/08/25 20:18 Pantoprazole 40 Mg Tablet PO 40 mg Q12HR AIMEE Administration Rosuvastatin Calcium 40 mg 01/07/25 18:00 01/08/25 17:53 Rosuvastatin 20 Mg Tablet PO 40 mg EVENING AIMEE Administration Tamsulosin HCl 0.4 mg 01/07/25 21:00 01/08/25 20:18 Tamsulosin Hcl 0.4 Mg Capsule PO 0.4 mg HS AIMEE Administration Ticagrelor 90 mg 01/07/25 09:00 01/08/25 20:18 Ticagrelor 90 Mg Tablet PO 90 mg Q12HR AIMEE Administration Vitamin D 2,000 units 01/07/25 09:00 01/08/25 08:11 Cholecalciferol 1,000 Units Tablet PO 2,000 units DAILY AIMEE Administration Radiology Results: ITS Impressions Upper Quadrant Ultrasound 01/06/25 15:11 IMPRESSION: Hepatic cyst. No additional abnormalities detected. Chest X-Ray 01/06/25 15:46 IMPRESSION: No focal infiltrate or effusion. Large hiatal hernia redemonstrated. Labs Labs: Laboratory Results - last 24 hr 01/09/25 03:58 Sodium 135 L Potassium 3.7 Chloride 106 Carbon Dioxide 26 Anion Gap 3 L BUN 19 Creatinine 1.12 Estim Creat Clear Calc 48 Estimated GFR > 60 Glucose 105 Calcium 7.7 L Total Bilirubin 0.6 AST 62 H ALT 39 Alkaline Phosphatase 71 Total Creatine Kinase 178 H Total Protein 5.0 L Albumin 2.6 L
[2025-01-09] MEDS: CHOLECALCIFEROL 1,000 UNITS TABLET 2000 UNITS PO (08:58)
[2025-01-09] MEDS: MIRABEGRON 25 MG ER TABLET PO (08:58)
[2025-01-09] MEDS: LOSARTAN POTASSIUM 12.5 MG TABLET PO (08:58)
[2025-01-09] MEDS: METOPROLOL TARTRATE 12.5 MG TABLET PO (08:58)
[2025-01-09] MEDS: TICAGRELOR 90 MG TABLET PO (08:58)
[2025-01-09] MEDS: GABAPENTIN 300 MG CAPSULE 600 MG PO ×2 (08:58→12:49)
[2025-01-09] MEDS: FERROUS SULFATE 325 MG TABLET DR PO (08:59)
[2025-01-09] MEDS: PANTOPRAZOLE 40 MG TABLET PO (08:59)
[2025-01-09] MEDS: ASPIRIN 81 MG ENTERIC TABLET PO (08:59)
--- NOTE | 2025-01-09 13:08 | P.DS_ITS ---
DS: Admitting Diagnosis Discharge Date 01/09/25 Admitting Diagnosis Chest pain DS: Discharge Diagnosis Discharge Diagnosis (1) Non-ST elevation myocardial infarction (NSTEMI): Code(s): I21.4 - Non-ST elevation (NSTEMI) myocardial infarction Status: Acute (2) Elevated LFTs: Code(s): R79.89 - Other specified abnormal findings of blood chemistry Status: Acute (3) Dyslipidemia: Code(s): E78.5 - Hyperlipidemia, unspecified Status: Acute (4) Hypothyroidism: Code(s): E03.9 - Hypothyroidism, unspecified Status: Acute (5) Rhabdomyolysis: Code(s): M62.82 - Rhabdomyolysis Status: Acute DS: Summary Hospital Course Reason for hospitalization: 79yo male with stroke with resultant mild memory loss and left upper extremity weakness, infrarenal abdominal aortic aneurysm with penetrating ulcer measuring 3.0 cm in September 2023, diastolic dysfunction, hypertension, hyperlipidemia, hypothyroidism, esophageal stricture status post dilatation, gastroesophageal reflux disease, Noemy fundoplication, and arthritis who presented to the emergency department via private vehicle with complaints of nausea, vomiting, and chest pain. Please see H&P for details. Hospital Course: The patient presented to the ED with complaints of nausea, vomiting, and chest pain. EKG shows sinus rhythm with PVCs, ST deviation with moderate T wave changes in the lateral leads. Troponin climbed to >80. LHC showing diffuse disease with a 99% thrombotic lesion in the proximal ramus intermedius with EVAN 2 flow. Patient had PCI with CATHERINE placement with good results. He tolerated the procedure well. Plan for aggressive medical management. He was started on appropriate medications including aspirin, losartan, Brilinta, Crestor and Lopressor. AST 351 and ALT64 that was present on admission. AlkPhos and TBili normal. Total CK was elevated at 1187. Could be related to the acute IA. Could be related to statin therapy. He was treated with IV fluids. Creatinine remained stable. Repeat AST/ALT trending downward. Hepatitis panel negative. Repeat Total CK is much better at 341. Triglycerides 90, cholesterol 141, LDL 31 and HDL 70. Crestor was resumed and LFTs and TCK levels still tended down. TSH 27. Free T4 is low at 0.7. Patient is on levothyroxine 150 mcg daily. Levothyroxine ad vanced. Will need Repeat TSH as outpatient. Patient worked with PT and OT. Patient overall did well and was able to be discharged home on 01/09/2025. Status at Discharge Cognitive/behavioral status at discharge: Stable Time Spent with Patient Time attestation: Total time spent providing and/or coordinating discharge services: 35 minutes Time spent: Greater than 30 minutes Exam Narrative: AF 98.1 110/73 79 18 100% ra Gen - NARD Chest - CTA bilaterally, nml RR CV - RRR S1/S2. Tele showing PVCs. Abd - Soft, NT/ND, Positive BS Ext - No pedal edema Psych - Nml mood and affect Skin - Warm and dry DS: Data Data Completed and Pending Labs on day of discharge: Labs from last 24 hours 01/09/25 03:58 Sodium 135 L Potassium 3.7 Chloride 106 Carbon Dioxide 26 Anion Gap 3 L BUN 19 Creatinine 1.12 Estim Creat Clear Calc 48 Estimated GFR > 60 Glucose 105 Calcium 7.7 L Total Bilirubin 0.6 AST 62 H ALT 39 Alkaline Phosphatase 71 Total Creatine Kinase 178 H Total Protein 5.0 L Albumin 2.6 L Discharge Plan Discharge Attending physician on discharge: Meet Callejas Consulting providers: Finn Caban Discharging Clinician: Meet Caleljas Anticipated Discharge Date/Time: 01/09/25 13:19 Patient Disposition: Home, Self-Care Activity: as tolerated Diet: heart healthy Discharge Instructions: Care Coordination: Patient encouraged to call his Medicaid insurance to request in home services to assist him with activities of daily life. Patient reports understanding how to do this as he has had these services through Medicaid in the past. [facility] [address] [place] [address] DISCHARGE INSTRUCTIONS - POST CARDIAC CATH Activity Restriction 1. No Driving for 24 hours 2. No lifting, pushing or pulling more than 10 LBS for 1 week 3. No strenuous activity or exercising for 1 week 4. Shower after 24 hours, do not soak in any water such as hot tubs or bath tubs Wound Care 1. Remove dressing 24 hours after your procedure prior to showering 2. Lather soap and water to puncture site and rinse then pat dry 3. You may apply a new band aid to the site and remove aft er 24 hours then leave open to air 4. Monitor daily for redness, drainage, mild swelling and fever Report IMMEDIATELY: CALL 911 1. If you experience any swelling or bleeding from puncture site. Hold firm pressure over the puncture site until help arrives 2. If you experience any new discomfort in you back, neck, jaw, stomach or arm. Any shortness of breath, nausea, vomiting, or cold sweats 3. If you experience any swelling, tenderness, or numbness in your leg or if your leg becomes cold or has color changes. Follow Up 1. Follow your doctors discharge instructions on resuming your medications. Some medications will need to be held after your procedure 2. Follow up with the office to schedule your next appointment with your doctor 3. Drink plenty of water following your procedure, avoid alcohol If you received a stent or a closure device keep your card with you such as in your wallet. Present your card to your doctor appointments to update your health care information. *For any other questions please call the office at [phone]. Office hours are 8AM 4:30PM Wednesday through Wednesday. Take precautions to avoid falls. Rise slowly from a lying or sitting position. Pause before standing or walking. Contact your doctor or call 911 and come to the Emergency Room if you have muscle aches/weakness, lightheadedness with standing or other worrisome symptoms. Avoid NSAIDs (ibuprofen, naproxen, Aleve). Tylenol is safe to take. Discharge medications: You are starting Brilinta (ticagrelor). This is an important medication to take since this protects your heart stent. You are also going home with losartan and metoprolol that are also important for you to take. The dose of your levothyroxine was increased and you will need to have repeat blood work to test your thyroid function in 1 month. We stopped your current levothyroxine dose. We also stopped your Lasix and Spironolactone. Talk with your doctor about these medications. Follow-up with your primary care provider in 1-2 weeks. Please call for appointment. Follow-up with your Alum Plant Supervisor in 1-2 weeks. Please call for an appointment. Thank you for using [facility] for your health care needs. Patient Instructions: Antibiotic Form, Heart Attack (DC), Chest Pain (DC), Coronary Intravascular Stent Placement (DC) Patient Language: Tamazight Stand Alone Forms: General Discharge Information Follow-up/Referrals: Finn Caban DO [Physician] - Call for Appointment Wolfgang Serrano MD [Primary Care Provider] - Call for Appointment Discharge Medications: New Brilinta 90 mg Tablet 90 mg PO Q12HR 30 Days Qty: 60 0RF nitroglycerin [Nitrostat] 0.4 mg Tablet, Sublingual 0.4 mg sublingual Q5MIN PRN (Reason: Chest Pain) Qty: 20 0RF metoprolol tartrate 25 mg tablet 12.5 mg PO Q12H Qty: 30 2RF losartan 25 mg tablet 12.5 mg PO DAILY Qty: 30 2RF levothyroxine 175 mcg capsule 175 mcg PO DAILY Qty: 30 2RF losartan 25 mg tablet 12.5 mg PO DAILY Qty: 30 2RF metoprolol tartrate 25 mg tablet 12.5 mg PO Q12H Qty: 30 2RF Continued mometasone 0.1 % ointment 1 applic topical DAILY PRN (Reason: itching) Qty: 45 0RF cholecalciferol (vitamin D3) 50 mcg (2,000 unit) capsule 50 mcg PO DAILY donepezil 10 mg tablet 10 mg PO QHS cetirizine 10 mg tablet 10 mg PO DAILY clobetasol 0.05 % ointment 1 applic TOPICAL BID PRN (Reason: rash) aspirin 81 mg Tablet,Chewable 81 mg PO DAILY rosuvastatin 40 mg Tablet 40 mg PO DAILY tamsulosin 0.4 mg capsule 0.4 mg PO HS ferrous sulfate [FeroSul] 325 mg (65 mg iron) tablet 325 mg PO BID mirabegron [Myrbetriq] 25 mg tablet extended release 24 hr 25 mg PO DAILY gabapentin 100 mg capsule 600 mg PO TID tizanidine 2 mg Tablet 2 mg PO Q8H PRN (Reason: Muscle Pain) oxybutynin chloride 15 mg tablet extended release 24hr 15 mg PO HS melatonin 10 mg Tablet 10 mg PO HS PRN (Reason: Sleep) pantoprazole 40 mg tablet,delayed release (DR/EC) 40 mg PO BID Qty: 60 5RF Held spironolactone 25 mg tablet 25 mg PO DAILY Hold Instructions: HOLD - resume when okay with your doctor furosemide [Lasix] 20 mg Tablet 20 mg PO DAILY Hold Instructions: HOLD - resume when okay with your doctor Discontinued levothyroxine 150 mcg capsule 150 mcg PO DAILY Other Ambulatory Orders: OT Outpatient Eval and Treat (ONCE) Timeframe: 20250110 Location: Determined by Patient Ordered By: Meet Callejas PT Outpatient Eval and Treat (ONCE) Timeframe: 20250110 Location: Determined by Patient Ordered By: Meet Callejas Thyroid Stimulating Hormone Reflex (Routine) Timeframe: 1 Month Location: Determined by Patient Ordered By: Meet Callejas Date of admission: 01/06/25 17:02 Primary Care Provider: Wolfgang Serrano Admitting Provider: Gregorio Vivas Attending physician on admission: Gregorio Vivas Condition: Stable Hospitalist MIPS Heart Failure (Exclusion) Patient has history of Heart Transplant or Left Ventricular Assistive Device?: No IF YES, STOP HERE Heart Failure (Qualifier) Patient has current or prior documentation of LVEF less than or equal to 40%, or mod/servere depressed LVSF?: No IF NO, STOP HERE
== END 2025-01-09 15:40 | disposition home or self-care (01) | DRG 322 ==
LOC: ANHED 12:41 → ANHIMU 17:00 → ANHICU 01-07 05:31 → ANHIMU 01-08 15:33 → ANHICU 01-10 10:34 → ANHIMU 01-10 10:34
PROVIDERS: Internal Medicine; Physician Assistant; Admitting Provider General Practice; Emergency Provider Emergency Medicine; PCP Family Medicine; Visit Provider Internal Medicine
PROC: 4A023N7 Measurement of Cardiac Sampling and Pressure, Left Heart, Percutaneous Approach (ICD-10-PCS; CPT 93452; principal; 2025-01-06 18:45)
PROC: 027034Z Dilation of Coronary Artery, One Artery with Drug-eluting Intraluminal Device, Percutaneous Approach (ICD-10-PCS; 2025-01-06 18:45)
PROC: 027034Z Dilation of Coronary Artery, One Artery with Drug-eluting Intraluminal Device, Percutaneous Approach (ICD-10-PCS; CPT 92928; 2025-01-06 18:45)
PROC: 027034Z Dilation of Coronary Artery, One Artery with Drug-eluting Intraluminal Device, Percutaneous Approach (ICD-10-PCS; 2025-01-06 18:45)
DX: I21.4 Non-ST elevation (NSTEMI) myocardial infarction (principal); I69.354 Hemiplegia and hemiparesis following cerebral infarction affecting left non-dominant side; M62.82 Rhabdomyolysis; I25.10 Atherosclerotic heart disease of native coronary artery without angina pectoris; I71.40 Abdominal aortic aneurysm, without rupture, unspecified; E78.5 Hyperlipidemia, unspecified; I71.43 Infrarenal abdominal aortic aneurysm, without rupture; I25.84 Coronary atherosclerosis due to calcified coronary lesion; I11.9 Hypertensive heart disease without heart failure; E03.9 Hypothyroidism, unspecified; K21.9 Gastro-esophageal reflux disease without esophagitis; I69.311 Memory deficit following cerebral infarction; N40.1 Benign prostatic hyperplasia with lower urinary tract symptoms; N32.81 Overactive bladder; Z87.891 Personal history of nicotine dependence; Z96.651 Presence of right artificial knee joint; R79.89 Other specified abnormal findings of blood chemistry
CPT/HCPCS: 36415; 71046; 76705; 80048; 80053; 80061; 80074; 82550; 83036; 83690; 83735; 84439; 84443; 84484; 85025; 85610; 85730; 92978; 93005; 93458; 96361; 96374; 96375; 96376; 97110; 97161; 97165; 97530; 99285; A9270; C1753; C1760; C1769; C1874; C1887; C1894; C7532; C8929; C9600; G0269; G0378; J1644; J2003; J2250; J2270; J2305; J2405; J3010; J7030; J7040; Q9957

== ENCOUNTER 2025-02-14 15:00 | Outpatient (RCR) | payer MEDICARE, MEDICAID, SELFPAY ==
--- NOTE | 2025-02-12 12:21 | OTOPEVAL1 ---
Assessment and note entered by Nidia Ohara, OT Evaluation Information Assessment Status Evaluation Subjective Information Pt. presents with , stating he has done occupational therapy before, he has no problem knowing how to get dressed, but I have trouble doing it. I get really fatigued, and don't have the energy to do it. Pt. states he was participating in occupational therapy in outpatient, but had a heart attack about 6 weeks ago. Pt. and spouse report he was attempting to go to cardiac rehab, but fell there, and it was requested he return to outpatient therapy to get stronger before returning to cardiac rehab. Reported Pain Level Pain Score 0,7: Self Report Assessment OT Clinical Summary Pt. is 79 year old M, referred to outpatient occupational therapy previously due to CVA resulting in L sided weakness about 16 months ago. Pt. was discharge due to hospitalization for Non- ST elevation myocardial infarction, after which he was scheduled to begin cardiac rehab. Pt. attended cardiac rehab, fell there, and was referred back to outpatient occupational therapy to increase strength and endurance to tolerate cardiac rehab and continue to improve strength, ROM, and functional use of L UE. Pt. demonstrated decreased active ROM, strength, and limited functional use of L UE. Pt. will benefit from skilled OT services including therapeutic exercises, ADL retraining and modifications, and use of therapeutic modalities to facilitate return to greatest level of functional capacity. Plan of Care Interventions Therapeutic Exercise,Neuro Re-education, Therapeutic Activities,Electrical Stimulation, Sensory Integrative Techniques,Self-Care/Home Management OT Services Indicated Yes These treatments will address the objective and functional deficits as defined above. The patient will be advanced safely and appropriately in order for the patient to progress towards his/her prior level of function. Additional exercises will be introduced and as well as a comprehensive home exercise program upon discharge, if needed, ?to ensure carryover of functional gains achieved in the clinic. This treatment plan has been reviewed and agreement upon by the patient.
--- NOTE | 2025-02-12 16:49 | OPREHPOC ---
Outpatient Therapy Plan of Care This is a Multidisciplinary Plan of Care that may contain components documented by all disciplines (PT, OT, and ST.) OT Problem 1 OT Problem #1 Knowledge Deficit OT Goal 1 Goal / Goal Update Pt. will demonstrate independence in HEP 5/7 days per week Target Visit 20 OT Problem 2 OT Problem #2 Impaired Range of Motion OT Goal 1 Goal / Goal Update Pt. will demonstrate increased ROM in all UE joints by 10 degrees for increased reach and functional use for participation in ADLs Target Visit 20 OT Problem 3 OT Problem #3 Impaired Sensation OT Goal 1 Goal / Goal Update Pt. will demonstrate increased strength in L shoulder by one muscle grade and elbow for increased functional use in ADLs and safety in functional transfers Target Visit 20
--- NOTE | 2025-02-12 16:52 | OPREHPOC ---
Outpatient Therapy Plan of Care This is a Multidisciplinary Plan of Care that may contain components documented by all disciplines (PT, OT, and ST.) OT Problem 1 OT Problem #1 Knowledge Deficit OT Goal 1 Goal / Goal Update Pt. will demonstrate independence in HEP 5/7 days per week Target Visit 20 OT Problem 2 OT Problem #2 Impaired Range of Motion OT Goal 1 Goal / Goal Update Pt. will demonstrate increased ROM in all UE joints by 10 degrees for increased reach and functional use for participation in ADLs Target Visit 20 OT Problem 3 OT Problem #3 Impaired Sensation OT Goal 1 Goal / Goal Update Pt. will demonstrate increased strength in L shoulder by one muscle grade and elbow for increased functional use in ADLs and safety in functional transfers Target Visit 20 OT Problem 4 OT Problem #4 Impaired Endurance OT Goal 1 Goal / Goal Update Pt. will self report increased participation in daily activities with declining fatigue Target Visit 10
--- NOTE | 2025-02-14 17:31 | BUSTOPEVAL1 ---
Assessment and note entered by Simi Newman, COLLAR FOLDER OPERATOR Evaluation Information Assessment Status Evaluation Diagnosis I63.9 Cerebral Infarction ICD-10 Condition Codes (ST) Cognitive Deficits following cerebral infarction I69.31 Subjective Information Patient was referred for a skilled ST evaluation due to a history of cognitive difficulties post CVA 16 months ago with increased difficulty noted after recent TX 2 months ago. Patient and reported that the patient has difficulty recalling recent events and often has to have the communication partner repeat themselves. He also reported that he has difficulty coming up with the words he wants to use and relies on others for assistance at times. He has noted an increase in difficulties since the recent TX indicating the need for skilled ST treatment. Following the patient's CVA he received skilled ST treatment at the [facility]. Post CVA the patient reported he had difficulty swallowing and often pocketing foods in his left cheek. He has adapted and now is doing much better with managing solids. He reported that he continues to have difficulty managing secretions and often drools from the left side. Throughout the assessment the patient often used a tissue to wipe the left corner of his mouth. Reported Pain Level Pain Score 0: Self Report Pain Score 0,7: Self Report Assessment ST Clinical Summary Patient was referred for a skilled ST evaluation due to continued concerns with cognitive skills post CVA and TX. Patient and report that he continues to have difficulty recalling recent events along with high level word finding and difficulty managing secretions on left side of lips. Patient participated in outpatient day program post CVA but has not participated in skilled ST treatment since the CVA 16 months ago. Throughout the assessment the patient spoke at the conversation level with minimal difficulties with word finding. He presented with anterior loss of saliva on left side with frequent wiping. He reported that he had difficulty swallowing in the past but is doing much better now. Some vocal hoarseness and wet/gurgle vocal quality was noted intermittently during the session and will continue to be monitored at this time as patient does not feel it is a huge concern. The SLUMS was administered during the session with a score of 26 /30 indicating a mild neurocognitive disorder at this time. He presented with difficulty in; divergent naming (10 with goal for 15+), recalling 5 target words with delay in presentation ( recalled 4/5), and difficulty with immediate paragraph recall at the moderate level of complexity (66% accuracy). [facility] Adult Language Evaluation was used with concerns noted in; complex yes/no questions, moderate level paragraph retention, complex sentence reading comprehension, moderate complexity paragraph reading comprehension, functional reading skills, and divergent naming skills. [facility] Cognitive evaluation was used with deficits noted in; mild deficits with recent memory and spatial/environmental orientation skills, thought organization through sorting and categorizing, and functional mathematical skills. Deficits within cognitive and language assessment indicate the need for skilled ST treatment to target areas to improve patient's ability to return to OF with least amount of assistance and reduced frustration. Recommendation for skilled ST treatment 1-2x week for 10 visits. Plan of Care Interventions Treatment of Language,Treatment for Cognitive Function Treatment Frequency and 1-2x/week for 10 visits Duration These treatments will address the objective and functional deficits as defined above. The patient will be advanced safely and appropriately in order for the patient to progress towards his/her prior level of function. Additional exercises will be introduced and as well as a comprehensive home exercise program upon discharge, if needed, ?to ensure carryover of functional gains achieved in the clinic. This treatment plan has been reviewed and agreement upon by the patient.
--- NOTE | 2025-02-14 17:32 | OPREHPOC ---
Outpatient Therapy Plan of Care This is a Multidisciplinary Plan of Care that may contain components documented by all disciplines (PT, OT, and ST.) OT Problem 1 OT Problem #1 Knowledge Deficit OT Goal 1 Goal / Goal Update Pt. will demonstrate independence in HEP 5/7 days per week Target Visit 20 OT Problem 2 OT Problem #2 Impaired Range of Motion OT Goal 1 Goal / Goal Update Pt. will demonstrate increased ROM in all UE joints by 10 degrees for increased reach and functional use for participation in ADLs Target Visit 20 OT Problem 3 OT Problem #3 Impaired Sensation OT Goal 1 Goal / Goal Update Pt. will demonstrate increased strength in L shoulder by one muscle grade and elbow for increased functional use in ADLs and safety in functional transfers Target Visit 20 OT Problem 4 OT Problem #4 Impaired Endurance OT Goal 1 Goal / Goal Update Pt. will self report increased participation in daily activities with declining fatigue Target Visit [address] Problem #[address] Goal 1 Goal / Goal Update 1. Patient will participate in recommended activities/tasks to promote carryover/ generalization to patient's environment. Target Visit [address] Problem #[address] Goal 1 Goal / Goal Update Verbal Expression: 1. Patient will complete divergent/convergent naming tasks (15+ items named) with 90% accuracy and minimal cues. 2. Patient will complete word finding activities ( comparing and contrasting items, synonyms, word description) with 90% accuracy and minimal cues. Target Visit [address] Problem #[address] Goal 1 Goal / Goal Update Memory: 1. Patient will complete moderate/complex paragraph recall tasks with 90% accuracy and minimal cues. 2. Patient will complete delayed memory tasks ( recalling words with delay, items) with 90% accuracy and minimal cues. 3. Patient will completed functional problem solving/mathematical tasks with 90% accuracy and minimal cues. Target Visit 10
--- NOTE | 2025-02-28 14:20 | STOPDC ---
Assessment and note entered by Nguyen Luis, FABRICATION LEAD Assessment ST Clinical Summary Patient was referred for a skilled ST evaluation due to continued concerns with cognitive skills post CVA and ND. Patient and report that he continues to have difficulty recalling recent events along with high level word finding and difficulty managing secretions on left side of lips. Patient participated in outpatient day program post CVA but has not participated in skilled ST treatment since the CVA 16 months ago. Throughout the assessment the patient spoke at the conversation level with minimal difficulties with word finding. He presented with anterior loss of saliva on left side with frequent wiping. He reported that he had difficulty swallowing in the past but is doing much better now. Some vocal hoarseness and wet/gurgle vocal quality was noted intermittently during the session and will continue to be monitored at this time as patient does not feel it is a huge concern. The SLUMS was administered during the session with a score of 26 /30 indicating a mild neurocognitive disorder at this time. He presented with difficulty in; divergent naming (10 with goal for 15+), recalling 5 target words with delay in presentation ( recalled 4/5), and difficulty with immediate paragraph recall at the moderate level of complexity (66% accuracy). [facility] Adult Language Evaluation was used with concerns noted in; complex yes/no questions, moderate level paragraph retention, complex sentence reading comprehension, moderate complexity paragraph reading comprehension, functional reading skills, and divergent naming skills. [facility] Cognitive evaluation was used with deficits noted in; mild deficits with recent memory and spatial/environmental orientation skills, thought organization through sorting and categorizing, and functional mathematical skills. Deficits within cognitive and language assessment indicate the need for skilled ST treatment to target areas to improve patient's ability to return to OF with least amount of assistance and reduced frustration. Recommendation for skilled ST treatment 1-2x week for [address] Services Indicated Yes
--- NOTE | 2025-03-01 08:39 | STOPDC ---
Assessment and note entered by Nguyen Luis, RUSSIAN RUBBER Evaluation Information Assessment Status Discharge - Pt Not Present Assessment ST Clinical Summary Patient evaluation only completed. Admitted to hospital and discharged with Home Health Plan of Care ST Services Indicated Yes
== END 2025-05-08 11:30 | disposition home or self-care (01) ==
LOC: ANHST 15:00
PROVIDERS: PCP Family Medicine; Visit Provider Registered Nurse
DX: R53.1 Weakness (principal); I63.9 Cerebral infarction, unspecified; R29.6 Repeated falls; R13.10 Dysphagia, unspecified
CPT/HCPCS: 92507; 92523; 96125; 97110; 97166

== ENCOUNTER 2025-02-15 16:42 | Inpatient (IN) | payer MEDICARE, MEDICAID, SELFPAY ==
--- NOTE | ~2025-02-15 | XR_ITS ---
Portable chest x-ray Comparison: [phone] Clinical History: Cough Findings: Lungs are clear, without focal consolidation or pleural effusion. Cardiomediastinal silho uette is stable. Osseous structures are intact. Probable small hiatal hernia, similar to prior exam. Surgical clips are present overlying the lower mediastinum. Impression: Clear lungs. Postsurgical change and hiatal hernia, stable from prior exam. Reviewed, dictated and finalized at location . Impression: Clear lungs. Postsurgical change and hiatal hernia, stable from prior exam.
--- NOTE | ~2025-02-15 | CT_ITS ---
EXAMINATION: CT LE LT w con DATE: 02/19/2025 14:27 INDICATION: Possible abscess with distal left lower leg pain TECHNIQUE: High resolution computed tomography (CT) of the left lower leg was performed without intra venous contrast. Additional sagittal and coronal reconstructions were performed. Automated exposure c ontrol and iterative reconstruction technique were employed. The dose-length product was 1139.94 mGy- cm. COMPARISON: Radiographs dated 02/25/2025 FINDINGS: Bone alignment is normal. No fracture. Osteoarthritis, severe at the medial compartment of the left k nee. Additional mild polyarticular osteoarthritis in the left foot. No periosteal reaction or cortica l erosions to suggest osteomyelitis. Small sclerotic bone island at the posterior medial femoral cond yle. There is a 5.5 x 3.0 x 1.4 cm lenticular lesion in the subcutaneous fat overlying the anterior l ower leg at the junction of the mid to distal thirds with some surrounding subcutaneous edema. The de nsity is relatively low for soft tissue but greater than simple fluid attenuation suggesting complex fluid but without an organized-appearing peripherally enhancing wall. There are multiple small phlebo liths in the subcutaneous tissues of the mid to distal lower leg. There is atherosclerotic plaque wit h mild stenosis at the tibial peroneal trunk. The anterior tibial artery is atretic with two-vessel r unoff below the ankle in the posterior tibial and peroneal arteries, the latter which appears to supp ly the dorsalis pedis artery below the ankle. Small region of fatty atrophy in the gastrocnemius and soleus muscles. IMPRESSION: 1. 5.5 x 2.0 x 1.4 cm lenticular lesion in the subcutaneous fat at the anterior mid to distal left lo wer leg most likely representing complex fluid and either a hematoma or abscess in the appropriate cl inical setting. Reviewed, dictated and finalized at location A. IMPRESSION: 1. 5.5 x 2.0 x 1.4 cm lenticular lesion in the subcutaneous fat at the anterior mid to distal left lower leg most likely representing complex fluid and either a hematoma or abscess in the appropriate clinical setting.
--- NOTE | ~2025-02-15 | XR_ITS ---
HISTORY: Fall and 1st toe pain COMPARISON: None TECHNIQUE: 3 views of the left foot were performed FINDINGS: No acute fracture or dislocation is appreciated. No significant degenerative disease is noted. The base of the fifth metatarsal is intact. No calcaneal spur is noted. No significant soft tissue swelling is present. IMPRESSION: Unremarkable radiographic evaluation of the left foot, as detailed Reviewed, dictated and finalized at location A.
--- NOTE | ~2025-02-15 | XR_ITS ---
HISTORY: Distal left foreleg pain COMPARISON: None TECHNIQUE: 2 views of the left tibia and fibula were performed FINDINGS: No acute or subacute fracture. Joint spaces are preserved and alignment is maintained. Soft tissues are without radiopaque foreign body or significant calcification. A 3 cm soft tissue density is identified within the anterior margin of the left lower extremity, with in the distal two thirds of the soft tissues overlying the distal tibia Age-appropriate mineralization. IMPRESSION: 3 cm soft tissue density within the lower third of the anterior lower extremity, as alvaro brown above. No acute fracture. Reviewed, dictated and finalized at location A. IMPRESSION: 3 cm soft tissue density within the lower third of the anterior lo wer extremity, as detailed above. No acute fracture.
--- OUTSIDE RECORDS SUMMARY | 2025-02-15 16:45 | XMS_ITS | Continuity of Care Document ---
Author Organization [facility] Address [address] [place] [address] Phone Care Team Providers Care Production Sound Mixer Name Role Phone Caio ADKINS, Jhonny Unavailable Unavailable Landon RN, Nguyen Unavailable Unavailable Procedures Procedure Date Voided Encounter Coronavirus AG IA (Rapid Test) 20 Voided Encounter Advance Directives Directive Yes / No Effective Date File Name No Information Encounters Encounter Description Practice Location Reason(s) For Visit Diagnoses Date Provider Providers Copied on Encounter [facility] , [address], [place], [place], [id number], tel:[phone] [facility] No Information 0 Caio Barry. [address] [place] [address], [id number], . tel:[phone] Consulting Provider: Nguyen Navarrete, [address], [place], [address]. tel:[phone] [employer] , [address], [place], [place], [id number], tel:[phone] [facility] No Information 0 No Information [facility] , [address], [place], [place], [id number], tel:[phone] [facility] Contact w and exposure to oth viral communicable diseases 0 Caio Barry. [address], [place], [place], [id number], . tel:[phone] [employer] , [address], [place], [place], [address], tel:[phone] [facility] No Information 0 Mathew Wilkinson. [address], [place], [place], [id number], [place]. tel:[phone] Family History Family Member Type Diagnosis Age [...]
[2025-02-15 16:52] VITALS: BP 123/61; PULSE 70; RESP 16; TEMP 36.1; O2SAT 96
--- NOTE | 2025-02-15 18:19 | PC.NURSE ---
Blister to pts left lateral lower leg measures 2cm x 2cm, intact with edema to left lower leg, left ankle & left foot. Surrounding tissue firm to touch with erythema
--- OUTSIDE RECORDS SUMMARY | 2025-02-15 19:54 | XMS_ITS | Clinical Summary ---
Author Organization [facility] Address [address] [place] [address] Care Team Providers Care Parcel Post Weigher Name Role Phone Wolfgang Serrano MD Primary Care Provider Wolfgang Serrano MD Unavailable Unknown, Notinfile Unavailable Unavailable Santino Funk MD Unavailable Chuy Enriquez MD Unavailable Luis Felipe Cedillo MD Unavailable [phone] Marlene Thornton MD Unavailable Allergies No known active allergies Medications cholecalciferol (VITAMIN D-3) 2000 unit capsule Take 1 capsule (2,000 Units total) by mouth daily 30 capsule 3 0 Active Additional Information Patient taking differently:2,000 Units oralNightly, Reported on 01/15/2025 tamsulosin (FLOMAX) 0.4 mg extended release capsule [...] differently: 2 mg oral Nightly, Reported on 01/15/2025 melatonin 10 mg tablet Take 1 tablet [...] (15 mg total) by mouth nightly Active cetirizine (ZyrTEC) 10 mg tablet Take 1 tablet (10 mg total) by mouth daily 90 tablet 3 5 Active clobetasoL (TEMOVATE) 0.05 % ointment Apply topically 2 (two) times a day as needed (Rash) Avoid face/groin 60 g 2 5 Active Active Problems Problem Noted Date Diagnosed Date Primary osteoarthritis of left knee 06/22/2024 Assessment & Plan (10/05/2024 9:45 AM PEST MANAGEMENT SUPERVISOR): The patient has advanced arthritis of the [...] 2025 Assessment & Plan (11/18/2023 2:34 PM PEST MANAGEMENT SUPERVISOR): RLL nodule in a patient without clear [...] maintenance/vaccinations Assessment & Plan (11/18/2023 2:34 PM PEST MANAGEMENT SUPERVISOR): Related to hiatal hernia, reflux Sx are [...] 05/18/2023 Biceps tendinitis of left upper extremity 08/08/ 2023 Tear of left glenoid labrum 05/18/2023 Hx of total knee replacement, right 12/01/2022 Neuropathy 12/01/2022 Pain due to total right knee replacement 022 Hamstring tendinitis of right thigh 04/28/2022 Quadriceps weakness 04/28/2022 Edema 04/04/2020 Intermittent claudication 04/04/2020 Iron deficiency anemia 04/04/2020 Peripheral vascular disease 04/04/2020 Goiter 12/05/2019 Overview (12/05/2019): Added automatically from request for surgery [id number] Subchondral insufficiency fracture of condyle of left [...] Encounters Date Type Department Care Team Description 01/18/2025 3:17 PM CDT - 01/18/2025 11:59 PM CDT Hospital Encounter [facility] - Imaging [address] [place] [address] Chuy Enriquez MD Nocturnal cough; Lung nodule Discharge Disposition: Discharge to home or self care 01/15/2025 3:00 PM CDT Office Visit [facility] Gastroenterology [address] [place] [address] Medicine 12th [place] [address] [place] [address] Carolyne Funk PA Esophageal dysphagia (Primary Dx) 01/15/2025 Orders Only [facility] Dermatology [address] [place] [address] RMA 01/15/2025 Telephone [facility] Dermatology [address] [facility] [address] [place] [address] Hesham Lamb PA Med Refill 01/11/2025 Orders Only [facility] Cardiology [address] [place] [address] Evaristo Matthews MD from Last 3 Months Immunizations Immunization Administration [...] hx of double vision, corrective lenses Seizures ([facility]) 1997 last seizure in 1997 Asthma Cataract SOB (shortness of breath) on exertion Subchondral insufficiency fr acture of condyle of left femur ([facility]) Closed fracture of left tibi al plateau [...] knee as current injury Vertigo Alzheimer's dementia ([facility]) Diverticulitis of colon Incontinence of urine Hypothyroidism Fatigue Vision changes Easy bruisability Frequent urination Back pain Muscle weakness Cramps of lower extremity Clotting disorder Hyperlipidemia Hypertension Enlarged prostate Stroke ([facility]) 12/09/2023 left leg works o k, cannot use left arm Dependence on cane Eczema of lower leg rash, Dr Mili gauilar's office aware per patient Dysphagia stroke 11/2023 [...] Sometimes 03/08/2024 [facility] Utilities Answer Date Recorded In the past 12 months has [email or web address], oil, or water [employer] threatened to shut off services in [...] How often do you attend chur or caodaism services? More than 4 times [...] Patient Health Questionnaire-2 Score 0 01/06/2024 [facility] - [...] in a assisted (including now)? No 12/16/2023 PHQ-9 Answer Date [...] on file Legal Sex Male 3:25 PM PEST MANAGEMENT SUPERVISOR Gender Identity Not on file Sexual Orientation Not on file Obstetrics History Last Filed Vital Signs Vital Sign Reading Time Taken Comments Blood Pressure 99/66 01/15/2025 3:11 PM CDT Pulse 59 01/15/2025 3:11 PM CDT Temperature 36.6 C (97.8 F) 01/15/2025 3:11 PM CDT Respiratory Rate 16 10/17/2024 11:19 AM PEST MANAGEMENT SUPERVISOR Oxygen Saturation 99% 10/17/2024 11:19 AM PEST MANAGEMENT SUPERVISOR Inhaled Oxygen Concentration - - Weight 81.6 kg (180 lb) 01/15/2025 3:11 PM CDT Height 177.8 cm (5' 10 ) 01/15/2025 3:11 PM CDT Body Mass Index 25.83 01/15/2025 3:11 PM CDT Plan of Treatment Scheduled Procedures Name Priority Associated Diagnoses Date/Ti me ESOPHAGOGASTRODUODENOSCOPY Dysphagia, unspecified type Health Maintenance Due Date Last Done Comments DTaP/Tdap/Td Vaccine (1 - Tdap) 1956 Hepatitis B Screening 1962 Zoster Vaccine (1 of 2) 1994 Well Visit 65+ 2009 Pneumococcal vaccine 65+ (2 of 2 - PCV) 07/11/2021 07/11/2020 Covid-19 Vaccine (3 - 2023-2 5 season) 2024 12/12/2020, 11/14/2020 Depression Screening 12/13/2024 12/14/2023, 12/14/2023, 12/07/2023, Additional history exists Influenza Vaccine (Season Ended) 2025 07/11/20 20, 12/30/2019 Fall Risk Assessment 10/17/2025 10/17/2024, 12/03/2022, 11/05/2022 Abdominal Aortic Aneurysm (A AA) Screen Completed 11/12/2023, 11/12/2023, 10/11/2023 Medical Devices Implanted Type Area Credit Balance Specialist Device Identifier Shelf Expiration Date Model / Serial / Lot [employer] 201.050 Nif - [id number] Implanted:Qty: 1 on 09/22/2018 by George Sepulveda MD at [facility] al: Knee [employer] 04/09/2020 201.050 / / [id number] Subchondroplasty Knee Kit Implanted:Qty: 1 on 09/22/2018 by George Sepulveda MD at [facility] al: Knee [employer] 11/10/2020 402.203(201.0 50) / [id number] / [id number] Description:KIT CONTAINS IMP LANT: ACCUFILL, 5ML, REF# 201.050, LOT # [id number], EX: 11-10-2020 System Accumix Bone Cement - [id number] Implanted:Qty: 1 on 09/22/2018 by George Sepulveda MD at [facility] [employer] 03/28/2021 311.100 / / [id number] [employer] [id number] Palacos R+G High Viscosity Cement Bone Gentamicin Arthroplasty - [id number] Implanted:Qty: 1 on 11/24/2021 by George Sepulveda MD at [facility] Right: Knee [employer] 05/10/2024 [id number] / / [id number] [employer] 10-2775-325-02 Persona Cruciate Retain Knee Right 11 Narrow Component Femoral - [id number] Implanted:Qty: 1 on 11/24/2021 by George Sepulveda MD at [facility] Right: Knee [employer] 07/13/2030 [id number] / / [id number] [employer] [id number] Persona 35mm Knee Component Patellar All Poly Latex Free - [id number] Implanted:Qty: 1 on 11/24/2021 by George Sepulveda MD at [facility] Right: Knee [employer] 03/25/2029 [id number] / / [id number] [employer] [id number] Persona 14mm 30+ Mm Knee Tibia Taper Extension Stem - [id number] Implanted:Qty: 1 on 11/24/2021 by George Sepulveda MD at [facility] Right: Knee [employer] 07/27/2031 [id number] / / [id number] [employer] [id number] Persona Natural Tibia Stem Knee Right 5d G Baseplate Tibial - [id number] Implanted:Qty: 1 on 11/24/2021 by George Sepulveda MD at [facility] Right: Knee [employer] 05/13/2031 [id number] / / [id number] [employer] [id number] Persona 10mm Knee Insert Articular Vivacit-E Sterile - [id number] Implanted:Qty: 1 on 11/24/2021 by George Sepulveda MD at [facility] Right: Knee [employer] 05/06/2026 [id number] / / [id number] Procedures Procedure Name Priority Date/Time Associated Diagnosis Comments CT CHEST WO CONTRAST Schedule Routine, Read Routine (OP Routine) 01/18/2025 3:45 PM CDT Nocturnal cough Lung nodule CARDIOLOGY DOCUMENT SCAN Routine 01/06/2025 3:[address] CHEST ABDOMEN PELVIS W CONTRAST ED Urgent/IP Urgent 10/11/2023 10:12 AM PEST MANAGEMENT SUPERVISOR from Last 3 Months or Most Recently Relevant to Health Maintenance Results * CT chest without contrast (01/18/2025 3:45 PM CDT) Anatomical Region Laterality Modality Body N/A Computed Tomogra phy 01/18/2025 3:50 PM CDT Impressions 01/18/2025 3:50 PM CDT 1. subpleural nodule lateral right costophrenic angle stable to slightly decreased in size. Likely focus of scarring 2. No new suspicious pulmonary nodule or infiltrate 3. Small hiatal hernia with gastroesophageal reflux Electronically signed by: Cindy Keenan M.D. Narrative 01/18/2025 3:50 PM CDT EXAM: CT chest without contrast HISTORY: Nocturnal cough COMPARISON: 01/18/2024 FINDINGS: CT chest was performed without IV contrast. There is limited evaluation of solid abdominal organs without contrast. There are changes of thyroidectomy. Thoracic aorta is of normal caliber. There appear to be new coronary artery stents. There is no thoracic lymphadenopathy. There are postoperative clips around hiatal hernia similar to prior with gastroesophageal reflux into the midesophagus. There is no pleural or pericardial effusion. Adrenal glands are normal. There is partial visualization of right nephrolithiasis and grossly stable low-attenuation left renal lesions. There is a low-attenuation liver lesions, likely cysts. Gallbladder is present. Chest wall is normal. There is scattered subpleural scarring in the lung bases and right lung apex. Left apical nodule likely component of scarring is stable. Nodular density in the lateral right costophrenic angle is stable to slightly decreased in size and appears to represent a focus of scarring. There is no new suspicious pulmonary nodule or infiltrate. There is no bronchiectasis or emphysema. Central airways are patent with the exception of new debris in the left mainstem bronchus. There are old left rib fractures. There is no acute bone abnormality. Procedure Note Cindy Keenan MD - 01/18/2025 EXAM: CT chest without contrast HISTORY: Nocturnal cough COMPARISON: 01/18/2024 FINDINGS: CT chest was performed without IV contrast. There is limited evaluation of solid abdominal organs without contrast. There are changes of thyroidectomy. Thoracic aorta is of normal caliber. There appear to be new coronary artery stents. There is no thoracic lymphadenopathy. There are postoperative clips around hiatal hernia similar to prior with gastroesophageal reflux into the midesophagus. There is no pleural or pericardial effusion. Adrenal glands are normal. There is partial visualization of right nephrolithiasis and grossly stable low-attenuation left renal lesions. There is a low-attenuation liver lesions, likely cysts. Gallbladder is present. Chest wall is normal. There is scattered subpleural scarring in the lung bases and right lung apex. Left apical nodule likely component of scarring is stable. Nodular density in the lateral right costophrenic angle is stable to slightly decreased in size and appears to represent a focus of scarring. There is no new suspicious pulmonary nodule or infiltrate. There is no bronchiectasis or emphysema. Central airways are patent with the exception of new debris in the left mainstem bronchus. There are old left rib fractures. There is no acute bone abnormality. IMPRESSION: 1. subpleural nodule lateral right costophrenic angle stable to slightly decreased in size. Likely focus of scarring 2. No new suspicious pulmonary nodule or infiltrate 3. Small hiatal hernia with gastroesophageal reflux Electronically signed by: Cindy Keenan M.D. Chuy Enriquez MD IM CT PROCEDURES Final Result * Cardiology Document Scan (01/06/2025 3:26 PM CDT) Anatomical Region Laterality Modality Other us Evaristo Matthews MD [facility] PROCEDURES F inal Result * CT Chest Abdomen Pelvis W Contrast (10/11/2023 10:12 AM PEST MANAGEMENT SUPERVISOR) Anatomical Region Laterality Modality Body N/A Computed Tomogra phy 10/11/2023 11:0 3 AM PEST MANAGEMENT SUPERVISOR Impressions 10/11/2023 11:03 AM PEST MANAGEMENT SUPERVISOR A 12 x 12 mm pulmonary nodule in the lateral aspect of the right costophrenic sulcus, new since 2019, is suspicious for primary lung malignancy. Electronically signed by: Jayshree Giles MD, Ph.D Narrative 10/11/2023 11:03 AM PEST MANAGEMENT SUPERVISOR EXAMINATION: Computed tomography of chest/abdomen/pelvis with intravenous [...] Health Maintenance Insurance [employer] MEDICARE PPO [employer] OOS MEDICARE [employer] CHOICE MEDICARE PPO IDPA * Guarantor: Abrahan Gtz Jr. Account Type Relation to Patient Date of Phone [id number]|2025-02-16 10:32:41|2025-02-16 10:32:41|PM.IM||||"H&P: HPI History of Present Illness Date/Time: 02/16/25 10:32 Chief Complaint: Weakness and falls. Narrative: Patient is an 79 year old male that came to the hospital with weakness and falls. Patient denies chest pain, palpitations, headache, dizziness, nausea, or vomiting. Patient reports dyspnea on exertion and cough with green and harper sputum. Patient reports that he needs to have his left knee replaced but cannot have it done right now. Patient reports that his left knee gives out but most of the time he can catch himself. He has tried wearing a brace on his left knee but it did not help. Patient reports that he fell at cardiac rehab on 02/06 over the top of his rollator walker and hit his left leg developing a blood blister. Patient reports pain in bilateral shoulders is a 5 , frequent, and throbbing. Patient reports little use of left arm/hand since stroke. Patient able to move left leg well per patient. Patient reports numbness and tingling at times in hands and feet. ER workup showed: H&H 11.4/34.9, Creatinine 1.62. Urine cloudy, 2+ protein, 1+ glucose, 3+ blood, 2+ leukocytes, RBC 6-10, WBC 21-50. Hepatitis panel negative. ER deroof the patient's bulla and send for cultures. Left foot X-ray: FINDINGS: No acute fracture or dislocation is appreciated. No significant degenerative disease is noted. The base of the fifth metatarsal is intact. No calcaneal spur is noted. No significant soft tissue swelling is present. IMPRESSION: Unremarkable radiographic evaluation of the left foot, as detailed Left tibia and fibula X-ray showed: FINDINGS: No acute or subacute fracture. Joint spaces are preserved and alignment is maintained. Soft tissues are without radiopaque foreign body or significant calcification. A 3 cm soft tissue density is identified within the anterior margin of the left lower extremity, within the distal two thirds of the soft tissues overlying the distal tibia Age-appropriate mineralization. IMPRESSION: 3 cm soft tissue density within the lower third of the anterior lower extremity, as detailed above. No acute fracture. TSH <0.015, Free T4 2.49. BNP 3130. HgbA1C 6.2%. Urine culture pending and left leg wound culture pending. Chest X-ray showed:Impression: Clear lungs. Postsurgical change and hiatal hernia, stable from prior exam. 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 Seizure x2 in 1997 Benign prostatic hyperplasia Esophageal stricture Gastroesophageal reflux Hypothyroidism Esophageal diverticulum, acquired Colon polyp Arthritis Diverticulosis Anemia Diverticulitis Myasthenia gravis patient denies Surgical History Surgical History History of arthroplasty of right knee History of Noemy fundoplication History of thyroidectomy Status post dilatation of esophageal stricture Family History Family History Mother , age 85 Acute myocardial infarction Hypertension Heart disease Father , age 70 Acute myocardial infarction Chronic obstructive pulmonary disease History of blood clots Hypertension Heart disease Sibling Acute myocardial infarction Hypertension Heart disease Other Heart disease Social History Social History Social History: Surrogate medical decision maker: Alon Gtz, spouse. Code status: Full code. Smoking packs per day: 1 Smoking cigarettes per day: 20.0 Years smoked: 4 Smoking pack-years: 4.00 Smoking status: Never smoker Alcohol intake: current Drinks per week: 1 Substance use: never Substance use type: does not use Do You Feel Safe in your Home?: Yes Lack of Transportation: No Lack of Food: Never True Current Housing: I Have Housing Concerned About Future Housing: No Difficulty Paying Gas/Electric Bills: No Difficulty Paying for Meds: No Currently Unemployed: No Education: Bachelor's Degree Difficulty w/ Childcare or Family Care: No Living arrangements: with family Additional living arrangements comments: Lives in [place] with his spouse. They have 3 children. 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 Spiritual care concerns: No Meds Home Medications and Allergies Home Medications Medication Instructions Recorded Confirmed Type furosemide 20 mg tablet (Lasix) 20 mg PO DAILY 08/13/23 02/16/25 History gabapentin 100 mg capsule 600 mg PO TID 08/13/23 02/16/25 History tizanidine 2 mg tablet 2 mg PO Q8H PRN Muscle Pain 08/13/23 02/16/25 History melatonin 10 mg tablet 10 mg PO HS PRN Sleep 10/10/23 02/16/25 History oxybutynin chloride 15 mg 15 mg PO HS 10/10/23 02/16/25 History tablet,extended release 24 hr cholecalciferol (vitamin D3) 50 50 mcg PO DAILY 11/09/23 02/16/25 History mcg (2,000 unit) capsule donepezil 10 mg tablet 10 mg PO QHS 11/09/23 02/16/25 History aspirin 81 mg chewable tablet 81 mg PO DAILY 01/26/24 02/16/25 History cetirizine 10 mg tablet 10 mg PO DAILY 01/26/24 02/16/25 History clobetasol 0.05 % topical ointment 1 applic topical BID PRN rash 01/26/24 02/16/25 History rosuvastatin 40 mg tablet 40 mg PO DAILY 01/26/24 02/16/25 History spironolactone 25 mg tablet 25 mg PO DAILY 01/26/24 02/16/25 History pantoprazole 40 mg tablet,delayed 40 mg PO BID #60 tabs 02/02/24 02/16/25 Rx release mometasone 0.1 % topical ointment 1 applic topical DAILY PRN itching 08/26/24 02/16/25 Rx #45 grams ferrous sulfate 325 mg (65 mg 325 mg PO BID 01/06/25 02/16/25 History iron) tablet (FeroSul) mirabegron 25 mg tablet,extended 25 mg PO DAILY 01/06/25 02/16/25 History release 24 hr (Myrbetriq) tamsulosin 0.4 mg capsule 0.4 mg PO HS 01/06/25 02/16/25 History levothyroxine 175 mcg capsule 175 mcg PO DAILY #30 caps 01/09/25 02/16/25 Rx losartan 25 mg tablet 12.5 mg (1/2 x 25 mg) PO DAILY #30 01/09/25 02/16/25 Rx tabs metoprolol tartrate 25 mg tablet 12.5 mg (1/2 x 25 mg) PO Q12H #30 01/09/25 02/16/25 Rx tabs nitroglycerin 0.4 mg sublingual 0.4 mg sublingual Q5MIN PRN Chest 01/09/25 02/16/25 Rx tablet (Nitrostat) Pain #20 tabs ticagrelor 90 mg tablet (Brilinta) 90 mg PO Q12HR 30 days #60 tabs 02/06/25 02/16/25 Rx dapagliflozin propanediol 5 mg 5 mg PO DAILY 02/16/25 02/16/25 History tablet (Farxiga) paroxetine HCl 20 mg tablet 20 mg PO QAM 02/16/25 02/16/25 History Allergies Allergy/AdvReac Type Severity Reaction Status Date / Time No Known Allergies Allergy Verified 01/06/25 13:47 Vital Signs Vital Signs - 24 hr 02/15/25 16:52 02/15/25 20:25 02/15/25 23:44 Temperature 96.9 F L Pulse Rate 70 68 74 Respiratory Rate 16 14 16 Blood Pressure 123/61 136/74 143/65 H Pulse Oximetry 96 100 100 Oxygen Delivery 02/16/25 00:36 02/16/25 03:57 02/16/25 04:45 Temperature 97.6 F 97.1 F L Pulse Rate 65 63 Respiratory Rate 16 18 Blood Pressure 140/88 120/60 Pulse Oximetry 100 100 Oxygen Delivery Room Air Exam Const: General: uncomfortable Eyes: Sclera: sclerae normal Pupils: Equal, round and reactive pupils present Resp: Effort & Inspection: normal respiratory effort Auscultation: clear to auscultation bilaterally Cardio: Rate: regular rate Rhythm: regular rhythm GI: GI Palp: Yes Soft to palpation Auscultation: normal bowel sounds Neuro: Speech: normal speech Extrem: Other: There is an approximately 3 cm hemorrhagic bulla noted the lateral aspect foreleg with a small surrounding hematoma. There is approximate 9 cm area of erythema, swelling and tenderness. Normal range of motion. 1 +edema of the left lower extremity. Left arm patient unable to lift without help from right arm. Psych: Mental Status: mental status grossly normal Affect: normal affect H&P: Results Labs Labs: Short CBC 02/15/25 02/16/25 Range/Units 20:12 05:26 WBC 6.5 6.6 (4.5-10.0) K/mm3 Hgb 11.4 L 11.4 L (14.0-18.0) g/dL Hct 34.9 L 35.2 L (42.0-52.0) % Plt Count 192 192 (150-375) k/mm3 BMP 02/15/25 02/16/25 20:12 05:26 Sodium 141 142 Potassium 3.6 3.7 Chloride 110 H 114 H Carbon Dioxide 27 23 BUN 21 H 21 H Creatinine 1.62 H 1.51 H Glucose 76 112 H Calcium 8.4 8.2 L Liver Function 02/15/25 Range/Units 20:12 Total Bilirubin 0.5 (0.2-1.3) mg/dL AST 39 (17-59) U/L ALT 27 (6-50) U/L Alkaline Phosphatase 109 (38-126) U/L Albumin 3.1 L (3.5-5.1) g/dL Urine 02/15/25 Range/Units 20:12 Urine Color Yellow (Yellow) Urine Appearance Cloudy H (Clear) Urine pH 5.5 (5.0-9.0) Ur Specific [place] 1.016 (1.001-1.035) Urine Protein 2+ H (Negative) mg/dL Urine Glucose (UA) 1+ H (Negative) mg/dL Assessment and Plan Assessment and plan (1) Falls frequently: Code(s): R29.6 - Repeated falls Status: Acute Assessment and Plan: PT/OT (2) Weakness: Code(s): R53.1 - Weakness Status: Acute Assessment and Plan: PT/OT (3) JULIETA (acute kidney injury): Code(s): N17.9 - Acute kidney failure, unspecified Status: Acute Assessment and Plan: Creatinine 1.62 on arrival, improved to 1.51 after IV fluids. Continue to trend. Avoid NSAIDS. (4) Cellulitis of left lower leg: Code(s): L03.116 - Cellulitis of left lower limb Status: Acute Assessment and Plan: Ceftriaxone 2 gram IVPB daily. Monitor site. Afebrile. WBC 6.6. (5) Shoulder pain, bilateral: Code(s): M25.511 - Pain in right shoulder; M25.512 - Pain in left shoulder Status: Acute Assessment and Plan: Acetaminophen 650 mg PO q 6 PRN. Quality VTE Prophylaxis VTE prophylaxis: pharmacologic ordered Hospitalist [facility] Advance Care Plan I have confirmed that the patient's Advanced Care Plan is present, code status is documented, or surrogate decision maker is listed in patient medical record.: Yes Medication Reconciliation I have utilized all available resources to obtain, update and review the patients current medications (includes all prescriptions, OTC, herbals, cannabis, and nutritional supplements).: Yes"
--- OUTSIDE RECORDS SUMMARY | 2025-02-15 19:54 | XMS_ITS | Continuity of Care Document ---
Author Organization [facility] Address [address] [place] [address] Phone Care Team Providers Care Town Administrator Name Role Phone Caio ADKINS, Jhonny Unavailable Unavailable Landon RN, Nguyen Unavailable Unavailable Procedures Procedure Date Voided Encounter Coronavirus AG [place] (Rapid Test) 20 Voided Encounter Advance Directives Directive Yes / No Effective Date File Name No Information Encounters Encounter Description Practice Location Reason(s) For Visit Diagnoses Date Provider Providers Copied on Encounter [facility] , [address], [place], [place], [id number], tel:[phone] [facility] No Information 0 Caio Barry. [address] [place] [address], [id number], . tel:[phone] Consulting Provider: Nguyen Navarrete, [address], [place], [address]. tel:[phone] [facility] , [address], [place], [place], [id number], tel:[phone] [facility] No Information 0 No Information [facility] , [address], [place], [place], [id number], tel:[phone] [facility] Contact w and exposure to oth viral communicable diseases 0 Caio Barry. [address], [place], [place], [id number], . tel:[phone] [facility] , [address], [place], [place], [id number], tel:[phone] [facility] No Information 0 Mathew Wilkinson. [address], [place], [place], [id number], [place]. tel:[phone] Family History Family Member Type Diagnosis Age At Onset No Information Payers Payer name Insurance type Covered constitution party ID Authoriza tion(s) No Information Social [...]
--- OUTSIDE RECORDS SUMMARY | 2025-02-15 19:54 | XMS_ITS | Encounter Summary ---
Author Organization [facility] Address [address] [place] [address] Phone Care Team Providers Care Artificial Teeth Inspector Name Role Phone Santino Funk MD Primary Care Provider + Unknown, Notinfile Primary Care Provider Unavail able No, Physician Primary Care Provider Santino Funk MD Primary Care Provider + Wolfgang Serrano MD Primary Care Provider Wolfgang Serrano MD Primary Care Provider Wolfgang Serrano MD Unavailable [phone] Unknown, Notinfile Unavailable Unavailable Santino Funk MD Unavailable [phone] Chuy Enriquez MD Unavailable [phone] Luis Felipe Cedillo MD Unavailable [phone] Marlene Thornton MD Unavailable [phone] Encounter Details Date Type Department Care Team (Late st Contact Info) Description 02/15/2018 [facility] Only [facility] ProviderGarett MD [address] [place] [address] Social History Tobacco Use Types Packs/Day Years Used Date Smoking Tobacco: Former Alcohol Use Standard Drinks/Week Comments Yes 0 (1 standard drink = 0.6 oz pur e alcohol) Sex and Gender Information Value Date Recorded Sex Assigned at Not on file Legal Sex Male 3:25 PM [employer] Gender Identity Not on file Sexual [...] COVID: Suspected 12/17/2021 12/17/2021 12/17/2021 10:19 PM [employer]ENT documented as of this encounter Care Teams Artificial Teeth Inspector Relationship Specialty [place] [id number] [address] [facility] [address] PCP - General 11/12/16 03/11/22 Unknown, Notinfile PCP - General 03/12/22 05/13/22 No, Physician PCP - General 05/14/22 09/29/22 [place] [id number] [address] [facility] [place] [address] PCP - General Internal Medicine 09/30/22 05/04/23 Wolfgang Serrano MD PCP - General Family Medicine 05/05/23 08/02/24 Wolfgang Serrano MD [address] [place] [address] [address] PCP - General Family Medicine 08/03/24 Wolfgang Serrano MD Family Medicine 08/03/24 Unknown, Notinfile 03/12/22 [place] [address] [facility] [address] [place] [address] 03/12/22 Chuy Enriquez MD [address] [facility] [address] [place] [address] Consulting Physician Pulmonary Disease 10/13/23 Luis Felipe Cedillo MD [address] [facility] [facility] [address], [place] [address] Consulting Physician Gastroenterology 10/13/23 Marlene Thornton MD [address] [facility] [facility] [address], [place] [address] Surgeon Vascular Surgery 11/10/23 documented as of this encounter
--- OUTSIDE RECORDS SUMMARY | 2025-02-15 19:54 | XMS_ITS | Continuity of Care Document ---
Author Organization [employer] [place] Address [address] [facility] [address] [place] [address] Phone Care Team Providers [facility] Field Coordinator Name Role Phone Grabiel SOLITARIO, Florentino Unavailable [...] Diagnoses Date Provider Providers Copied on Encounter [facility] [address] [place] [address], [place], [place], [id number], tel:[phone] [place] No Information 2 Grabiel Florentino. . Referring Provider: George Cardenas, [address], [place], [address]. tel:[phone] [facility] [address], [place], [place], [address], tel:[phone] [place] No Information 2 Grabiel Florentino. . Referring Provider: George Cardenas, [address], [place], [address]. tel:[phone] [facility] [address], [place], [place], [address], [place] tel:[phone] [place] No Information 2 Grabiel Florentino. . Referring Provider: George Cardenas, [address], [place], [address]. tel:[phone] [facility], [place], [place], [address], [place] tel:[phone] [place] No Information 2 Grabiel Florentino. . Referring Provider: George Cardenas, [address], [place], [address]. tel:[phone] [facility], [place], [place], [address], [place] tel:[phone] [place] No Information 2 Grabiel Florentino. . Referring Provider: George Cardenas, [address], [place], [address]. tel:[phone] [facility], [place], [place], [address], [place] tel:[phone] [place] No Information 2 Grabiel Florentino. . Referring Provider: George Cardenas, [address], [place], [address]. tel:[phone] [facility], [place], [place], [address], [place] tel:[phone] [place] No Information 2 Grabiel Florentino. . Referring Provider: George Cardenas, [address], [place], [address]. tel:[phone] [facility], [place], [place], [address], [place] tel:[phone] [place] No Information 2 Grabiel Florentino. . Referring Provider: George Cardenas, [address], [place], [address]. tel:[phone] [facility], [place], [place], [address], [place] tel:[phone] [place] No Information 2 Grabiel Florentino. . Referring Provider: George Cardenas, [address], [place], [address]. tel:[phone] [facility], [place], [place], [address], [place] tel:[phone] [place] No Information 2 Grabiel Good. . Referring Provider: George Cardenas, [address], [place], [address]. tel:[phone] [facility], [address], [place], [place], [id number], [place] tel:[phone] [place] No Information 2 Grabiel Good. . Referring Provider: George Sepulveda S, [address], [facility] [place], [address]. tel:[phone] [facility], [facility] [address], [place], [place], [address], [place] tel:[phone] [place] No Information 2 Clarita Pizano. [address] [place] [address], [address], [place], [facility], . tel:[phone] Referring Provider: Carol Aceves, [address] [place] [address] Suite [facility], [place], [address]. tel:[phone] [place], [place] [address], [place], [place], [address], [place] tel:[phone] [place] No Information 2 Clarita Pizano. [address] [place] [address], [address], [place], [facility], [place]. tel:[phone] Referring Provider: Carol Aceves, [address] [place] [address] Suite [facility], [place], [address]. tel:[phone] [facility] [address] [facility], [place], [place], [address], [place] tel:[phone] [place] No Information 2 Denisa Casas . Referring Provider: Carol Aceves, [address] [facility] Suite [facility], [place], [address]. tel:[phone] [facility] [address], [place], [place], [address], [place] tel:[phone] [place] No Information 2 Denisa Parada. . Referring Provider: Carol Aceves, [address] [place] [address] [address] [facility], [place], [facility]. tel:[phone] [place] [address], [place], [place], [address], tel:[phone] [place] No Information 0 2 Denisa Parada. . Referring Provider: Carol Aceves, [address] [place] [address], [place], [facility]. tel:[phone] [place] [address], [place], [place], [address], tel:[phone] [place] No Information 0 2 Muehl Harinder. [address] [place] [address], [address], [place], [facility], . tel:[phone] Referring Provider: Carol Aceves, [address] [place] [address], [place], [facility]. tel:[phone] [place] [address], [place], [place], [address], tel:[phone] [place] No Information February- 2 Muehl Harinder. [address] [place] [address], [address], [place], [facility], . tel:[phone] Referring Provider: Carol Aceves, [address] [place] [address], [place], [facility]. tel:[phone] [place] [address], [place], [place], [address], tel:[phone] [place] No Information 2 Muehl Harinder. [address] [place] [address], [address], [place], [facility], . tel:[phone] Referring Provider: Caorl Aceves, [address] [place] [address] [address] [facility], [place], [facility]. tel:[phone] [place] [address], [place], [place], [id number], tel:[phone] [place] No Information 2 Muehl Harinder. [address] [place] [address], [address], [place], [facility], . tel:[phone] Referring Provider: Carol Aceves, [address] [place] [address] Suite [facility], [place], [facility]. tel:[phone] [address] [address], [place], [place], [address], tel:[phone] [place] No Information 2 Essner Tal. . Referring Provider: Carol Aceves [address] [place] [address] Suite [facility], [place], [facility]. tel:[phone] [address] [address], [place], [place], [address], tel:[phone] [place] No Information 2 Muehl Harinder. [address] [place] [address], [address], [place], [facility], . tel:[phone] Referring Provider: Carol Aceves, [address] [place] [address] [address] [facility], [place], [facility]. tel:[phone] [address] [address], [place], [place], [address], tel:[phone] [place] No Information 0 2 Muehl Harinder. [address] [place] [address], [address], [place], [facility], . tel:[phone] Referring Provider: Carol Aceves, [address] [facility] [address] [facility], [place], [address]. tel:[phone], [id number], tel:[phone] [place] No Information 2 Muehl Harinder. [address] [place] [address], [address], [place], [facility], . tel:[phone] Referring Provider: Carol Aceves, [address] [place] [address], [place], [address]. tel:[phone] [place] [address], [address] [facility] [address], [place], [place], [address], [place] tel:[phone] [place] No Information 2 Modglin Tre. . Referring Provider: Carol Aceves, [address] [place] [address], [place], [address]. tel:[phone] [place] [address], [address] [facility] [address], [place], [place], [address], [place] tel:[phone] [place] No Information 2 Niederhoffer Fernanda. . Referring Provider: Carol Aceves, [address] [place] [address], [place], [address]. tel:[phone] [place] [address], [address] [place] [address], [place], [place], [address], [place] tel:[phone] [place] No Information 2 Niederhoffer Fernanda. . Referring Provider: Carol Aceves, [address] [place] [address], [place], [address]. tel:[phone] [facility] [address] [address], [place], [place], [address], [place] tel:[phone] [place] No Information 2 Niederhoffer Fernanda. . Referring Provider: Carol Aceves, [address] [place] [address], [place], [address]. tel:[phone] [facility] [address] [place] [address] [address], [place], [place], [address], [place] tel:[phone] [place] No Information 0 2 Yuval Foote. [address] [place] [address], [address], [place], [facility], [place]. tel:[phone] Referring Provider: Carol Aceves, [address] [place] [address], [place], [address]. tel:[phone] [place] [address], [address] [place] [address] [address], [place], [place], [address], tel:[phone] [place] No Information Apr-0 4-202 2 Muehl Harinder. [address] [place] [address], [address], [place], [facility], . tel:[phone] Referring Provider: Carol Aceves, [address] [place] [address] [address] [facility], [place], [facility]. tel:[id number] [place] [address] [address], [place], [place], [address], tel:[phone] [place] No Information Mar-3 0-202 2 Muehl Harinder. [address] [place] [address], [address], [place], [facility], . tel:[phone] Referring Provider: Carol Aceves, [address] [place] [address] [address] [facility], [place], [facility]. tel:[id number] [place] [address], [id number], tel:[phone] [place] No Information Mar-2 8-202 2 Muehl Harinder. [address] [place] [address], [address], [place], [facility], . tel:[phone] Referring Provider: Carol Aceves, [address] [place] [address] [address] [facility], [place], [facility]. tel:[id number] [place] [address], [id number], tel:[phone] [place] No Information Mar-2 4-202 2 Muehl Harinder. [address] [place] [address], [address], [place], [facility], . tel:[phone] Referring Provider: Carol Aceves, [address] [place] [address] [place] [address], [facility]. tel:[phone], [id number], tel:[phone] [place] No Information Mar-2 2-202 2 Muehl Harinder. [address] [place] [address], [address], [place], [facility], [place]. tel:[phone] Referring Provider: Carol Aceves, [address] [facility] Suite [facility], [place], [address]. tel:[phone] [facility], [address] [place] [address] [address], [place], [place], [address], [place] tel:[phone] [place] No Information Mar-1 2 Muehl Harinder. [address] [place] [address], [address], [place], [facility], [place]. tel:[phone] Referring Provider: Carol Aceves, [address] [facility] [address] [facility], [place], [address]. tel:[phone] [address] [address], [place], [place], [address], tel:[phone] [place] No Information Mar-1 2 Muehl Harinder. [address] [place] [address], [address], [place], [facility], [place]. tel:[phone] Referring Provider: Carol Aceves, [address] [facility] [address] [facility], [place], [address]. tel:[phone] [address] [address], [place], [place], [address], [place] tel:[phone] [place] No Information Mar-1 - 2 Muehl Harinder. [address] [place] [address], [address], [place], [facility], [place]. tel:[phone] Referring Provider: Carol Aceves, [address] [facility] [address] [facility], [place], [address]. tel:[phone] [address] [address], [place], [place], [address], tel:[phone] [facility] No Information Mar-0 4-202 2 Tom Amezcua. . Referring Provider: George Sepulveda S, [address], [place], [address]. tel:[phone] [facility], [place], [place], [address], [place] tel:[phone] [facility] No Information 0 2 Makler Luke. . Referring Provider: George Cardenas, [address], [place], [address]. tel:[phone] [facility], [place], [place], [address], [place] tel:[phone] [facility] No Information b-2 2 Makler Luke. . Referring Provider: George Cardenas, [address], [place], [address]. tel:[phone] [facility], [place], [place], [address], [place] tel:[phone] [facility] No Information Nov- 2 Makler Luke. . Referring Provider: George Cardenas, [address], [place], [address]. tel:[phone] [facility], [place], [place], [address], [place] tel:[phone] [facility] No Information Nov- 2 Makler Luke. . Referring Provider: Geogre Cardenas, [address], [place], [address]. tel:[phone] [facility], [place], [place], [address], [place] tel:[phone] [facility] No Information Nov- 2 Makler Luke. . Referring Provider: George Cardenas, [address], [place], [address]. tel:[phone] [facility], [place], [place], [address], [place] tel:[phone] [place] Pain in right kneeEffusion, right kneeMuscle weakness (generalized) Stiffness of right knee, not elsewhere classifiedUns pecified abnormalities of gait and mobility Feb-1 9-201 9 Muehl Harinder. [address] [place] [address], [address], [place], [facility], . tel:[phone] Referring Provider: Jossie Montalvo, [address] [facility] [address], [place], [address]. tel:[phone] [address], [place], [place], [address], [place] tel:[phone] [place] Pain in right kneeEffusion, right kneeMuscle weakness (generalized) Stiffness of right knee, not elsewhere classifiedUns pecified abnormalities of gait and mobility Feb-1 5-201 9 Muehl Harinder. [address] [place] [address], [address] [address], [place], [facility], [place]. tel:[phone] Referring Provider: Jossie Montalvo, [address] [facility] [address], [place], [address]. tel:[phone] [facility] [address], [place], [place], [address], [place] tel:[phone] [place] Pain in right kneeEffusion, right kneeMuscle weakness (generalized) Stiffness of right knee, not elsewhere classifiedUns pecified abnormalities of gait and mobility Feb-1 2-201 9 Threlkeld Jacquie. . Referring Provider: Jossie Montalvo, [address] [address], [place], [address]. tel:[phone] [facility] [address], [place], [place], [address], [place] tel:[phone] [place] Pain in right kneeEffusion, right kneeMuscle weakness (generalized) Stiffness of right knee, not elsewhere classifiedUns pecified abnormalities of gait and mobility Feb-0 7-201 9 Muehl Harinder. [address] [place] [address], [address], [place], [facility], [place]. tel:[phone] Referring Provider: Jossie Montalvo, [address] [address], [place], [address]. tel:[phone] [facility] [address], [place], [place], [address], [place] tel:[phone] [place] Pain in right kneeEffusion, right kneeMuscle weakness (generalized) Stiffness of right knee, not elsewhere classifiedUns pecified abnormalities of gait and mobility 0 9 Muehl Harinder. [address] [facility], [address], [place], [address], [place]. tel:[phone] Referring Provider: Jossie Montalvo, [address] [address], [place], [address]. tel:[phone] [facility] [address] [facility], [place], [place], [address], [place] tel:[phone] [place] Pain in right kneeEffusion, right kneeMuscle weakness (generalized) Stiffness of right knee, not elsewhere classifiedUns pecified abnormalities of gait and mobility 9 Muehl Harinder. [address] [place] [address], [address], [place], [address], [place]. tel:[phone] Referring Provider: Jossie Montalvo, [address] [address], [place], [address]. tel:[phone] [facility] [address] [facility] [address], [place], [place], [address], [place] tel:[phone] [place] Pain in right kneeEffusion, right kneeMuscle weakness (generalized) Stiffness of right knee, not elsewhere classifiedUns pecified abnormalities of gait and mobility 9 Muehl Harinder. [address] [facility], [address], [place], [address], [place]. tel:[phone] Referring Provider: Jossie Montalvo, [address] [address], [place], [address]. tel:[phone] [facility] [facility], [place], [place], [address], [place] tel:[phone] [place] Pain in right kneeEffusion, right kneeMuscle weakness (generalized) Stiffness of right knee, not elsewhere classifiedUns pecified abnormalities of gait and mobility 9 Muehl Harinder. [address] [facility], [address], [place], [facility], [place]. tel:[phone] Referring Provider: Jossie Montalvo, [address] [facility] [address], [place], [address]. tel:[phone] [address], [place], [place], [address], tel:[phone] [place] Pain in right kneeEffusion, right kneeMuscle weakness (generalized) Stiffness of right knee, not elsewhere classifiedUns pecified abnormalities of gait and mobility Sep- 8 Muehl Harinder. [address] [facility], [facility] [address], [place], [address], [place]. tel:[phone] Referring Provider: Jossie Montalvo, [address] [facility] [address], [place], [address]. tel:[phone] [facility] [address], [place], [place], [address], [place] tel:[phone] [place] Pain in right kneeEffusion, right kneeMuscle weakness (generalized) Stiffness of right knee, not elsewhere classifiedUns pecified abnormalities of gait and mobility Sep- 8 Maddie Chavez . Referring Provider: Jossie Montalvo, [address] [facility] [address], [place], [address]. tel:[phone] [facility] [address] [facility] [address], [place], [place], [address], [place] tel:[phone] [place] Pain in right kneeEffusion, right kneeMuscle weakness (generalized) Stiffness of right knee, not elsewhere classifiedUns pecified abnormalities of gait and mobility Sep-2 8 Muehl Harinder. [address] [facility], [address], [place], [address], [place]. tel:[phone] Referring Provider: Jossie Montalvo, [address] [facility] [address], [place], [address]. tel:[phone] [facility], [address] [facility] [address], [place], [place], [address], [place] tel:[phone] [place] Pain in right kneeEffusion, right kneeMuscle weakness (generalized) Stiffness of right knee, not elsewhere classifiedUns pecified abnormalities of gait and mobility 0201 8 Clarita iPzano. [address] [facility], [address], [place], [address], [place]. tel:[phone] Referring Provider: Jossie Montalvo [address], [place], [address]. tel:[phone] Family History Family Member Type Diagnosis Age At Onset No Information Payers Payer name Insurance type Covered constitution party ID Katarzyna ojhnson(s) [facility] [id number] [facility] [id number] Social History Type Description Quantity Date Captured [...]
--- OUTSIDE RECORDS SUMMARY | 2025-02-15 19:54 | XMS_ITS | Referral Summary ---
Author Organization [facility] Address [address] [place] [address] Care Team Providers Care President [employer] Name Role Phone Wolfgang Serrano MD Primary Care Provider Wolfgang Serrano MD Unavailable [phone] Unknown, Notinfile Unavailable Unavailable Santino Funk MD Unavailable Chuy Enriquez MD Unavailable [phone] Luis Felipe Cedillo MD Unavailable [phone] Marlene Thornton MD Unavailable Encounters Date Type Department Care Team Description 01/18/2025 3:17 PM CDT - 01/18/2025 11:59 PM CDT Hospital Encounter [facility] - Imaging [address] [place] [address] Chuy Enriquez MD Nocturnal cough; Lung nodule Discharge Disposition: Discharge to home or self care 01/15/2025 Orders Only [facility] Dermatology [address] [place] [address] [address] [place] [address] RMA 01/15/2025 Telephone [facility] Dermatology [address] [place] [address] [address] [place] [address] Hesham Lamb PA Med Refill 01/15/2025 3:00 PM CDT Office Visit [facility] Gastroenterology [address] 12th [place] [address] [place] [address] Carolyne Funk PA Esophageal dysphagia (Primary Dx) 01/11/2025 Orders Only [facility] Cardiology [address] [place] [id number] Evaristo Matthews MD from Last 3 Months Allergies No known [...] 06/22/2024 Assessment & Plan (10/05/2024 9:45 AM BAKER HEAD): The patient has advanced arthritis of the [...] 2025 Assessment & Plan (11/18/2023 2:34 PM BAKER HEAD): RLL nodule in a patient without clear [...] maintenance/vaccinations Assessment & Plan (11/18/2023 2:34 PM BAKER HEAD): Related to hiatal hernia, reflux Sx are [...] (12/05/2019): Added automatically from request for surgery [id number] Subchondral insufficiency fracture of condyle of left [...] from doctor or pharmacy Sometimes 03/08/2024 [facility] Utilities Answer Date Recorded In the past 12 months has [employer], oil, or water [employer] threatened to shut off services in your [...] week 12/16/2023 How often do you attend [facility] or congregational services? More than 4 times per year 12/16/2023 Do you belong to any clubs o r organizations such as religion groups, unions, [employer] or athletic groups, or school groups? No [...] Recorded Patient Health Questionnaire-2 Score 0 01/06/2024 [facility] - [...] health care facility (including now)? No 12/16/2023 PHQ-9 Answer Date [...] file Legal Sex Male 3:25 PM BAKER HEAD Gender Identity Not on file Sexual Orientation Not on file Last Filed Vital Signs Vital Sign Reading Time Taken Comments Blood Pressure 99/66 01/15/2025 3:11 PM CDT Pulse 59 01/15/2025 3:11 PM CDT Temperature 36.6 C (97.8 F) 01/15/2025 3:11 PM CDT Respiratory Rate 16 10/17/2024 11:19 AM BAKER HEAD Oxygen Saturation 99% 10/17/2024 11:19 AM BAKER HEAD Inhaled Oxygen Concentration - - Weight 81.6 kg (180 lb) 01/15/2025 3:11 PM CDT Height 177.8 cm (5' 10 ) 01/15/2025 3:11 PM CDT Body Mass Index 25.83 01/15/2025 3:11 PM CDT Plan of Treatment Scheduled Procedures Name Priority Associated Diagnoses Date/Ti me ESOPHAGOGASTRODUODENOSCOPY Dysphagia, unspecified type Medical Devices Implanted Type Area Alternative Medicine Practitioner Device Identifier Shelf Expiration Date Model / Serial / Lot [employer] 201.050 Nif - [id number] Implanted:Qty: 1 on 09/22/2018 by George Sepulveda MD at [facility] al: Knee [employer] 04/09/2020 201.050 / / [id number] Subchondroplasty Knee Kit Implanted:Qty: 1 on 09/22/2018 by George Sepulveda MD at [facility] al: Knee [employer] 11/10/2020 402.203(201.0 50) / [id number] / [id number] Description:KIT CONTAINS IMP LANT: ACCUFILL, 5ML, REF# 201.050, LOT # [id number], EX: 11-10-2020 System [employer] Bone Cement - [id number] Implanted:Qty: 1 on 09/22/2018 by George Sepulveda MD at [facility] [employer] 03/28/2021 311.100 / / [id number] [employer] [id number] Palacos R+G High Viscosity Cement Bone Gentamicin Arthroplasty - [id number] Implanted:Qty: 1 on 11/24/2021 by George Sepulveda MD at [facility] Right: Knee [employer] 05/10/2024 [id number] / / [id number] [employer] [id number] Persona Cruciate Retain Knee Right 11 Narrow Component Femoral - [id number] Implanted:Qty: 1 on 11/24/2021 by George Sepulveda MD at [facility] Right: Knee [employer] 07/13/2030 [id number] / / [id number] [employer] [id number] Persona 35mm Knee Component Patellar All Poly Latex Free - [id number] Implanted:Qty: 1 on 11/24/2021 by George Sepulveda MD at [facility] Right: Knee [employer] 03/25/2029 [id number] / / [id number] [employer] [id number] Persona 14mm 30+ Mm Knee Tibia Taper Extension Stem - [id number] Implanted:Qty: 1 on 11/24/2021 by George Sepulveda MD at [facility] Right: Knee [employer] 07/27/2031 [id number] / / [id number] [employer] [id number] Persona Natural Tibia Stem Knee Right 5d G Baseplate Tibial - [id number] Implanted:Qty: 1 on 11/24/2021 by George Sepulveda MD at [facility] Right: Knee [employer] 05/13/2031 [id number] / / [id number] [employer] [id number] Persona 10mm Knee Insert Articular Vivacit-E Sterile - [id number] Implanted:Qty: 1 on 11/24/2021 by George Sepulveda MD at [facility] Right: Knee [employer] 05/06/2026 [id number] / / [id number] Procedures Procedure Name Priority Date/Time Associated Diagnosis Comments CT CHEST WO CONTRAST Schedule Routine, Read Routine (OP Routine) 01/18/2025 3:45 PM CDT Nocturnal cough Lung nodule CARDIOLOGY DOCUMENT SCAN Routine 01/06/2025 3:[address] CHEST ABDOMEN PELVIS W CONTRAST ED Urgent/IP Urgent 10/11/2023 10:12 AM BAKER HEAD from Last 3 Months or Most Recently [...] by: Cindy Keenan M.D. Chuy Enriquez MD IMG CT PROCEDURES Final Result * Cardiology Document Scan (01/06/2025 3:26 PM CDT) Anatomical Region Laterality Modality Other Evaristo Matthews MD CV CARDIAC SERVICES PROCEDURES F inal Result * CT Chest Abdomen Pelvis W Contrast (10/11/2023 10:12 AM BAKER HEAD) Anatomical Region Laterality Modality Body N/A Computed Tomogra phy 10/11/2023 11:0 3 AM BAKER HEAD Impressions 10/11/2023 11:03 AM BAKER HEAD A 12 x 12 mm pulmonary nodule in the lateral aspect of the right costophrenic sulcus, new since 2019, is suspicious for primary lung malignancy. Electronically signed by: Jayshree Giles MD, Ph.D Narrative 10/11/2023 11:03 AM BAKER HEAD EXAMINATION: Computed tomography of chest/abdomen/pelvis with intravenous [...] Health Maintenance Insurance [employer] CHOICE MEDICARE PPO [employer] OOS MEDICARE [employer] CHOICE MEDICARE PPO [address] [place] [address] [place] [address] [place] [address] Advance Directives For more information, please contact: [phone] Documents on File Type Date Recorded Patient Oracle Scm Consultant Expl anation ADVANCE DIRECTIVE 01/10/2024 3:33 PM LIVING WILL ADVANCE DIRECTIVE 01/10/2024 3:33 PM POWER OF FORGING PRESS SETTER UP-MEDICAL * Full Code (Latest Code Status on [...] 5:17 PM 12/30/2019 5:42 PM Care Teams President [employer] Relationship Specialty Start Date End Date Wolfgang Serrano MD [address] [place] [id number] PCP - General Family Medicine 08/03/24 Wolfgang Serrano MD [address] [id number] Family Medicine 08/03/24 Unknown, Notinfile 03/12/22 [place] [address] [facility] [address] [place] [address] 03/12/22 Chuy Enriquez MD [address] [facility] [address] [place] [address] Consulting Physician Pulmonary Disease 10/13/23 Luis Felipe Cedillo MD [address] [facility] [address] [address] Consulting Physician Gastroenterology 10/13/23 Marlene Thornton MD [address] [facility] [address] [address] Surgeon Vascular Surgery 11/10/23
--- NOTE | 2025-02-15 20:03 | ED.WOUNDLAC ---
HPI - Wound/Laceration General Chief Complaint: Wound/Laceration Stated Complaint: blood blister Time Seen by Provider: 02/15/25 18:56 Source: patient Mode of arrival: ambulatory Limitations: no limitations History of Present Illness HPI narrative: This is an 79-year-old male, with history of coronary artery disease, AAA and stroke 1 year ago with left-sided deficits, who presents to the emergency department complaining of a “blood blister” of the left lower extremity with increased pain and surrounding redness. The patient states he fell at a clinic on while walking with his Rollator, stumbling across the left leg. A blister initially formed and in the past day has developed surrounding redness. He denies associated fevers. He and his states he has fallen 3 more times at home, most recently last night. He denies head injury or loss of consciousness. He denies chest pain, shortness of breath or new focal weakness. He has no complaints at this time. Related Data Home Medications Medication Instructions Recorded Confirmed Last Taken Type furosemide 20 mg tablet (Lasix) 20 mg PO DAILY 08/13/23 01/16/25 02/01/24 History gabapentin 100 mg capsule 600 mg PO TID 08/13/23 01/16/25 02/01/24 History tizanidine 2 mg tablet 2 mg PO Q8H PRN Muscle Pain 08/13/23 01/16/25 02/02/24 08:00 History melatonin 10 mg tablet 10 mg PO HS PRN Sleep 10/10/23 01/16/25 02/01/24 History oxybutynin chloride 15 mg 15 mg PO HS 10/10/23 01/16/25 02/01/24 History tablet,extended release 24 hr cholecalciferol (vitamin D3) 50 50 mcg PO DAILY 11/09/23 01/16/25 02/01/24 History mcg (2,000 unit) capsule donepezil 10 mg tablet 10 mg PO QHS 11/09/23 01/16/25 02/01/24 History aspirin 81 mg chewable tablet 81 mg PO DAILY 01/26/24 01/16/25 02/01/24 History cetirizine 10 mg tablet 10 mg PO DAILY 01/26/24 01/16/25 02/01/24 History clobetasol 0.05 % topical ointment 1 applic topical BID PRN rash 01/26/24 01/16/25 02/01/24 History rosuvastatin 40 mg tablet 40 mg PO DAILY 01/26/24 01/16/25 02/01/24 History spironolactone 25 mg tablet 25 mg PO DAILY 01/26/24 01/16/25 02/01/24 History ferrous sulfate 325 mg (65 mg 325 mg PO BID 01/06/25 01/16/25 Unknown History iron) tablet (FeroSul) mirabegron 25 mg tablet,extended 25 mg PO DAILY 01/06/25 01/16/25 Unknown History release 24 hr (Myrbetriq) tamsulosin 0.4 mg capsule 0.4 mg PO HS 01/06/25 01/16/25 Unknown History Allergies Allergy/AdvReac Type Severity Reaction Status Date / Time No Known Allergies Allergy Verified 01/06/25 13:47 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 Seizure x2 in 1997 Benign prostatic hyperplasia Esophageal stricture Gastroesophageal reflux Hypothyroidism Esophageal diverticulum, acquired Colon polyp Arthritis Diverticulosis Anemia Diverticulitis Myasthenia gravis patient denies Surgical History Surgical History History of arthroplasty of right knee History of Noemy fundoplication History of thyroidectomy Status post dilatation of esophageal stricture Family History Family History Mother , age 85 Acute myocardial infarction Hypertension Heart disease Father , age 70 Acute myocardial infarction Chronic obstructive pulmonary disease History of blood clots Hypertension Heart disease Sibling Acute myocardial infarction Hypertension Heart disease Other Heart disease Social History Social History Social History: Surrogate medical decision maker: Estebanjarod Gtz, spouse. Code status: Full code. Smoking packs per day: 1 Smoking cigarettes per day: 20.0 Years smoked: 4 Smoking pack-years: 4.00 Smoking status: Former smoker Alcohol intake: current Drinks per week: 1 Substance use: never Substance use type: does not use Do You Feel Safe in your Home?: Yes Lack of Transportation: No Lack of Food: Never True Current Housing: I Have Housing Concerned About Future Housing: No Difficulty Paying Gas/Electric Bills: No Difficulty Paying for Meds: No Currently Unemployed: No Education: Decline to Answer Difficulty w/ Childcare or Family Care: No Living arrangements: with family Additional living arrangements comments: Lives in [place] with his spouse. They have 3 children. 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 Spiritual care concerns: No Exam Narrative: GENERAL: Well-developed, well-nourished, and in no acute distress. HEAD: Normocephalic, atraumatic. EYES: PERRLA and EOMI. ENT: Nares clear, no rhinorrhea or epistaxis. Mucous membranes moist. Oropharynx without tonsillar hypertrophy exudate or other lesions. NECK: Supple. No midline spine tenderness to palpation, no step-off or crepitus CHEST: Clear to auscultation. No respiratory distress. No wheezes rales or rhonchi HEART: Regular rate and rhythm. No murmur heard. Normal peripheral pulses. ABDOMEN: Soft, nontender, nondistended, normal active bowel sounds. EXTREMITIES: There is an approximately 3 cm hemorrhagic bulla noted the lateral aspect foreleg with a small surrounding hematoma. There is approximate 9 cm area of erythema, swelling and tenderness. Normal range of motion. 1 +edema of the left lower extremity. SKIN: Left lower extremity changes as above. Skin otherwise warm, dry, no rash. NEURO: Alert and oriented x3. No focal deficit. Left leg and left upper strength 4+/5. Strength 5/5 on the right. Sensation intact bilaterally PSYCH: Normal mood and affect. Course Course Emergency Course: 19:48 - I had a long conversation with the patient and spouse 21:21 - UA consistent with UTI. CBC demonstrates baseline anemia of hemoglobin of 11.4 but is otherwise unremarkable. Chemistries demonstrate creatinine elevation 1.62 with a baseline of 1.1, consistent with JULIETA. The patient denies abdominal pain, I have low suspicion for kidney stone. X-ray of the left foreleg and foot negative for fracture or dislocation. I have increased suspicion for cellulitis developing at the site of the patient's hematoma. I discussed these findings with the patient and his spouse, considering his multiple frequent falls, I suspect the patient would benefit from placement at (at least) an assisted living facility. 21:38 - I discussed patient with hospitalist, Dr. Fowler who accepts admission. Will deroof the patient's bulla and send for cultures (please see procedure note). Vital Signs Vital signs: Vital Signs Temperature 96.9 F L 02/15/25 16:52 Pulse Rate 70 02/15/25 16:52 Respiratory Rate 16 02/15/25 16:52 Blood Pressure 123/61 02/15/25 16:52 Pulse Oximetry 96 02/15/25 16:52 Temperature 96.9 F L 02/15/25 16:52 Pulse Rate 70 02/15/25 16:52 Respiratory Rate 16 02/15/25 16:52 Blood Pressure 123/61 02/15/25 16:52 Pulse Oximetry 96 02/15/25 16:52 Procedures Abscess I/D lower extremity: Date of Incision: 02/15/25 Time of Incision: 21:55 Side (if applicable): left Sedation/analgesia: none Local Anesthetic: none Technique: other (Deroofed bulla with #15 blade) Amount of fluid expressed (mL): 3 Irrigation: No Packing used?: none I&D Results: Blood Complications: pain MDM - Wound/Laceration MDM Narrative Medical decision making narrative: Plan: Labs, imaging, reassess Differential Diagnosis Differential diagnosis: Likely other (Cellulitis, hematoma, UTI, anemia, metabolic abnormality, fracture, contusion, other) Lab Data 02/15/25 20:12 02/15/25 20:12 Labs: Lab Results 02/15/25 Range/Units 20:12 WBC 6.5 (4.5-10.0) K/mm3 RBC 3.65 L (4.6-6.20) M/mm3 Hgb 11.4 L (14.0-18.0) g/dL Hct 34.9 L (42.0-52.0) % MCV 95.6 (80-100) fl MCH 31.2 (26-34) pg MCHC 32.7 (32-36) g/dl RDW 17.5 H (11.5-14.5) % Plt Count 192 (150-375) k/mm3 MPV 11.0 H (7.4-10.4) fl Immature Gran % (Auto) 0.3 (0-0.5) % Neut % (Auto) 46.2 (45.5-73.1) % Lymph % (Auto) 30.3 (18.3-44.2) % Titus % (Auto) 17.0 H (2.6-8.5) % Eos % (Auto) 5.4 H (0-4.4) % Baso % (Auto) 0.8 (0.2-1.2) % Lymph # (Auto) 1.98 (0.9-3.2) K/mm3 Titus # (Auto) 1.1 H (0.1-0.6) K/mm3 Eos # (Auto) 0.4 H (0-0.3) K/mm3 Baso # (Auto) 0.1 (0.0-0.1) K/mm3 Abs Immat Gran (auto) 0.02 (0.00-0.031) K/mm3 Absolute Neuts (auto) 3.0 (1.3-6.7) K/mm3 Absolute Nucleated RBC 0.000 (0.0-0.012) K/mm3 Nucleated RBC % 0.0 (0.0-0.2) % Sodium 141 (137-145) mmol/L Potassium 3.6 (3.4-5.0) mmol/L Chloride 110 H (98-107) mmol/L Carbon Dioxide 27 (22-30) mmol/L Anion Gap 4 (4-12) mmol/L BUN 21 H (9-20) mg/dL Creatinine 1.62 H (0.7-1.3) mg/dL Estim Creat Clear Calc 34 ml/min Estimated GFR 41 L (59 - ) Glucose 76 (65-110) mg/dL Calcium 8.4 (8.4-10.2) mg/dL Total Bilirubin 0.5 (0.2-1.3) mg/dL AST 39 (17-59) U/L ALT 27 (6-50) U/L Alkaline Phosphatase 109 (38-126) U/L Total Protein 6.0 L (6.3-8.2) g/dL Albumin 3.1 L (3.5-5.1) g/dL Urine Color Yellow (Yellow) Urine Appearance Cloudy H (Clear) Urine pH 5.5 (5.0-9.0) Ur Specific [place] 1.016 (1.001-1.035) Urine Protein 2+ H (Negative) mg/dL Urine Glucose (UA) 1+ H (Negative) mg/dL Urine Ketones Negative (Negative) mg/dL Ur Blood (Man) 3+ H (Negative) Urine Nitrate Negative (Negative) Urine Bilirubin Negative (Negative) Urine Urobilinogen 1.0 (<2.0) mg/dL Add Ur Microanalysis Reviewed Leukocyte Esterase Rfl 2+ H (Negative) DEBBIE/UL Urine RBC 6-10 H (0-2) /hpf Urine WBC 21-50 H (0-3) /hpf Ur Squamous Epith Cells Occasional (Few) /hpf Urine Bacteria None seen /hpf Urine Casts 6-10 Hyaline Casts Present (None) /lpf Discharge Plan Discharge Clinical Impression: Hematoma, Acute UTI, JULIETA (acute kidney injury) Cellulitis Qualifiers: Site of cellulitis: extremity Site of cellulitis of extremity: lower extremity Laterality: left Qualified Code(s): L03.116 - Cellulitis of left lower limb Contusion of foot, left Qualifiers: Encounter type: initial encounter Qualified Code(s): S90.32XA - Contusion of left foot, initial encounter Patient Disposition: Still a Patient Condition: Stable Patient Language: Belarusian Prescriptions: No Action mometasone 0.1 % ointment 1 applic topical DAILY PRN (Reason: itching) Qty: 45 0RF cholecalciferol (vitamin D3) 50 mcg (2,000 unit) capsule 50 mcg PO DAILY donepezil 10 mg tablet 10 mg PO QHS cetirizine 10 mg tablet 10 mg PO DAILY clobetasol 0.05 % ointment 1 applic TOPICAL BID PRN (Reason: rash) spironolactone 25 mg tablet 25 mg PO DAILY aspirin 81 mg Tablet,Chewable 81 mg PO DAILY rosuvastatin 40 mg Tablet 40 mg PO DAILY tamsulosin 0.4 mg capsule 0.4 mg PO HS ferrous sulfate [FeroSul] 325 mg (65 mg iron) tablet 325 mg PO BID mirabegron [Myrbetriq] 25 mg tablet extended release 24 hr 25 mg PO DAILY nitroglycerin [Nitrostat] 0.4 mg Tablet, Sublingual 0.4 mg sublingual Q5MIN PRN (Reason: Chest Pain) Qty: 20 0RF metoprolol tartrate 25 mg tablet 12.5 mg PO Q12H Qty: 30 2RF losartan 25 mg tablet 12.5 mg PO DAILY Qty: 30 2RF levothyroxine 175 mcg capsule 175 mcg PO DAILY Qty: 30 2RF furosemide [Lasix] 20 mg Tablet 20 mg PO DAILY gabapentin 100 mg capsule 600 mg PO TID tizanidine 2 mg Tablet 2 mg PO Q8H PRN (Reason: Muscle Pain) oxybutynin chloride 15 mg tablet extended release 24hr 15 mg PO HS melatonin 10 mg Tablet 10 mg PO HS PRN (Reason: Sleep) pantoprazole 40 mg tablet,delayed release (DR/EC) 40 mg PO BID Qty: 60 5RF Brilinta 90 mg tablet 90 mg PO Q12HR 30 Days Qty: 60 5RF Follow-up/Referrals: Wolfgang Serrano MD [Primary Care Provider] - Time of Disposition: 21:38
[2025-02-15 20:17] LABS: Basophils Absolute Auto 0.1 K/mm3 (0.0-0.1); Basophils Percent Auto 0.8 % (0.2-1.2); Eosinophils Absolute Auto 0.4 K/mm3 (0-0.3); Eosinophils Percent Auto 5.4 % (0-4.4); Hematocrit 34.9 % (42.0-52.0); Hemoglobin 11.4 g/dL (14.0-18.0); Immature Granulocyte Absolute 0.02 K/mm3 (0.00-0.031); Immature Granulocyte Percent A 0.3 % (0-0.5); Lymphocytes Absolute Auto 1.98 K/mm3 (0.9-3.2); Lymphocytes Percent Auto 30.3 % (18.3-44.2); Mean Corpuscular HGB Conc 32.7 g/dl (32-36); Mean Corpuscular Hemoglobin 31.2 pg (26-34); Mean Corpuscular Volume 95.6 fl (80-100); Monocytes Absolute Auto 1.1 K/mm3 (0.1-0.6); Neutrophils Percent Auto 46.2 % (45.5-73.1); Platelet Count Result 192 k/mm3 (150-375); Red Blood Count 3.65 M/mm3 (4.6-6.20); Red Cell Distribution Width 17.5 % (11.5-14.5); White Blood Count 6.5 K/mm3 (4.5-10.0)
[2025-02-15 20:25] VITALS: BP 136/74; PULSE 68; RESP 14; O2SAT 100
[2025-02-15 20:31] LABS: Alanine Aminotransferase 27 U/L (6-50); Albumin Level 3.1 g/dL (3.5-5.1); Alkaline Phosphatase 109 U/L (38-126); Anion Gap 4 mmol/L (4-12); Aspartate Amino Transferase 39 U/L (17-59); Bilirubin,Total 0.5 mg/dL (0.2-1.3); Blood Urea Nitrogen 21 mg/dL (9-20); Calcium 8.4 mg/dL (8.4-10.2); Carbon Dioxide 27 mmol/L (22-30); Chloride 110 mmol/L (98-107); Estimated CRCL calculation 34 ml/min; Estimated Glomerular Filt Rate 41; Glucose 76 mg/dL (65-110); Potassium 3.6 mmol/L (3.4-5.0); Sodium 141 mmol/L (137-145)
[2025-02-15 20:34] LABS: Add Urine Microscopic? YES; Appearance Urine Cloudy (Clear); Bacteria Urine None Seen /hpf; Bilirubin Urine Negative (Negative); Blood Urine 3+ (Negative); Color Urine Yellow (Yellow); Glucose Urine UA 1+ mg/dL (Negative); Hyaline Casts Urine Present /lpf; Ketones Urine Negative (Negative); Leukocyte Esterase Ur 2+ LEU/UL (Negative); Need Manual Microscopic Reviewed; Nitrate Urine Negative (Negative); Protein Urine 2+ mg/dL (Negative); Specific Grav Ur 1.016 (1.001-1.035); Squamous Epithelial Cell Urine Occasional /hpf (Few); WBC Urine 21-50 /hpf (0-3); pH Urine 5.5 (5.0-9.0)
[2025-02-15] MEDS: cefTRIAXone 2 GM/NS 100 ML 2 GM/100 ML BAG IVPB (21:27)
[2025-02-15] MEDS: SODIUM CHLORIDE 0.9% IV 1,000 ML 150 ML IV CONT (21:28)
[2025-02-15 23:44] VITALS: BP 143/65; PULSE 74; RESP 16; O2SAT 100
[2025-02-16] VITALS (8 sets, daily range): BP systolic 120–140; BP diastolic 59–88; PULSE 58–72; RESP 16–18; TEMP 36.2–36.6; O2SAT 98–100; BMI 26.6
--- NOTE | 2025-02-16 00:02 | PC.NURSE ---
called 3rd med x2 to give report, no answer.
--- NOTE | 2025-02-16 00:51 | ADMGEN ---
This patient, Abrahan Gtz Jr., was admitted to Medical Room 345-01. Patient/family oriented to hospital policies and general routines including ID bracelet, bed and alarms, visiting hours, pain management, procedures, bathroom and other care routines, personal items, smoking policy, room service/diet, and visiting hours. Information on how to activate the Rapid Response Team has been discussed. Patient/Family are encouraged to report perceived risks to care and to ask questions if they do not understand what they are told or what they should do.
[2025-02-16] MEDS: ACETAMINOPHEN 325 MG TABLET 650 MG PO (03:29)
[2025-02-16 05:38] LABS: Basophils Absolute Auto 0.1 K/mm3 (0.0-0.1); Basophils Percent Auto 0.8 % (0.2-1.2); Eosinophils Absolute Auto 0.4 K/mm3 (0-0.3); Eosinophils Percent Auto 5.9 % (0-4.4); Hematocrit 35.2 % (42.0-52.0); Hemoglobin 11.4 g/dL (14.0-18.0); Immature Granulocyte Absolute 0.02 K/mm3 (0.00-0.031); Immature Granulocyte Percent A 0.3 % (0-0.5); Lymphocytes Absolute Auto 1.51 K/mm3 (0.9-3.2); Lymphocytes Percent Auto 22.8 % (18.3-44.2); Mean Corpuscular HGB Conc 32.4 g/dl (32-36); Mean Corpuscular Hemoglobin 30.8 pg (26-34); Mean Corpuscular Volume 95.1 fl (80-100); Mean Platelet Volume 10.7 fl (7.4-10.4); Monocytes Absolute Auto 1.1 K/mm3 (0.1-0.6); Monocytes Percent Auto 15.9 % (2.6-8.5); Neutrophils Absolute Auto 3.6 K/mm3 (1.3-6.7); Neutrophils Percent Auto 54.3 % (45.5-73.1); Platelet Count Result 192 k/mm3 (150-375); Red Cell Distribution Width 17.3 % (11.5-14.5); White Blood Count 6.6 K/mm3 (4.5-10.0)
[2025-02-16 05:51] LABS: Anion Gap 5 mmol/L (4-12); Blood Urea Nitrogen 21 mg/dL (9-20); Calcium 8.2 mg/dL (8.4-10.2); Carbon Dioxide 23 mmol/L (22-30); Chloride 114 mmol/L (98-107); Estimated CRCL calculation 36 ml/min; Estimated Glomerular Filt Rate 45; Glucose 112 mg/dL (65-110); Potassium 3.7 mmol/L (3.4-5.0); Sodium 142 mmol/L (137-145)
[2025-02-16 09:48] LABS: Magnesium 2.2 mg/dL (1.6-2.3)
[2025-02-16 10:21] LABS: Thyroid Stimulating Hormone Reflex < 0.015 uIU/mL (0.465-4.68)
--- NOTE | 2025-02-16 10:32 | P.HP_ITS ---
H&P: HPI History of Present Illness Date/Time: 02/16/25 10:32 Chief Complaint: Weakness and falls. Narrative: Patient is an 79 year old male that came to the hospital with weakness and falls. Patient denies chest pain, palpitations, headache, dizziness, nausea, or vomiting. Patient reports dyspnea on exertion and cough with green and harper sputum. Patient reports that he needs to have his left knee replaced but cannot have it done right now. Patient reports that his left knee gives out but most of the time he can catch himself. He has tried wearing a brace on his left knee but it did not help. Patient reports that he fell at cardiac rehab on 02/06 over the top of his rollator walker and hit his left leg developing a blood blister. Patient reports pain in bilateral shoulders is a 5 , frequent, and throbbing. Patient reports little use of left arm/hand since stroke. Patient able to move left leg well per patient. Patient reports numbness and tingling at times in hands and feet. ER workup showed: H&H 11.4/34.9, Creatinine 1.62. Urine cloudy, 2+ protein, 1+ glucose, 3+ blood, 2+ leukocytes, RBC 6-10, WBC 21-50. Hepatitis panel negative. ER deroof the patient's bulla and send for cultures. Left foot X-ray: FINDINGS: No acute fracture or dislocation is appreciated. No significant degenerative disease is noted. The base of the fifth metatarsal is intact. No calcaneal spur is noted. No significant soft tissue swelling is present. IMPRESSION: Unremarkable radiographic evaluation of the left foot, as detailed Left tibia and fibula X-ray showed: FINDINGS: No acute or subacute fracture. Joint spaces are preserved and alignment is maintained. Soft tissues are without radiopaque foreign body or significant calcification. A 3 cm soft tissue density is identified within the anterior margin of the left lower extremity, within the distal two thirds of the soft tissues overlying the distal tibia Age-appropriate mineralization. IMPRESSION: 3 cm soft tissue density within the lower third of the anterior lower extremity, as detailed above. No acute fracture. TSH <0.015, Free T4 2.49. BNP 3130. HgbA1C 6.2%. Urine culture pending and left leg wound culture pending. Chest X-ray showed:Impression: Clear lungs. Postsurgical change and hiatal hernia, stable from prior exam. 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 Seizure x2 in 1997 Benign prostatic hyperplasia Esophageal stricture Gastroesophageal reflux Hypothyroidism Esophageal diverticulum, acquired Colon polyp Arthritis Diverticulosis Anemia Diverticulitis Myasthenia gravis patient denies Surgical History Surgical History History of arthroplasty of right knee History of Noemy fundoplication History of thyroidectomy Status post dilatation of esophageal stricture Family History Family History Mother , age 85 Acute myocardial infarction Hypertension Heart disease Father , age 70 Acute myocardial infarction Chronic obstructive pulmonary disease History of blood clots Hypertension Heart disease Sibling Acute myocardial infarction Hypertension Heart disease Other Heart disease Social History Social History Social History: Surrogate medical decision maker: Alon Gtz, spouse. Code status: Full code. Smoking packs per day: 1 Smoking cigarettes per day: 20.0 Years smoked: 4 Smoking pack-years: 4.00 Smoking status: Never smoker Alcohol intake: current Drinks per week: 1 Substance use: never Substance use type: does not use Do You Feel Safe in your Home?: Yes Lack of Transportation: No Lack of Food: Never True Current Housing: I Have Housing Concerned About Future Housing: No Difficulty Paying Gas/Electric Bills: No Difficulty Paying for Meds: No Currently Unemployed: No Education: Bachelor's Degree Difficulty w/ Childcare or Family Care: No Living arrangements: with family Additional living arrangements comments: Lives in [place] with his spouse. They have 3 children. 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 Spiritual care concerns: No Meds Home Medications and Allergies Home Medications Medication Instructions Recorded Confirmed Type furosemide 20 mg tablet (Lasix) 20 mg PO DAILY 08/13/23 02/16/25 History gabapentin 100 mg capsule 600 mg PO TID 08/13/23 02/16/25 History tizanidine 2 mg tablet 2 mg PO Q8H PRN Muscle Pain 08/13/23 02/16/25 History melatonin 10 mg tablet 10 mg PO HS PRN Sleep 10/10/23 02/16/25 History oxybutynin chloride 15 mg 15 mg PO HS 10/10/23 02/16/25 History tablet,extended release 24 hr cholecalciferol (vitamin D3) 50 50 mcg PO DAILY 11/09/23 02/16/25 History mcg (2,000 unit) capsule donepezil 10 mg tablet 10 mg PO QHS 11/09/23 02/16/25 History aspirin 81 mg chewable tablet 81 mg PO DAILY 01/26/24 02/16/25 History cetirizine 10 mg tablet 10 mg PO DAILY 01/26/24 02/16/25 History clobetasol 0.05 % topical ointment 1 applic topical BID PRN rash 01/26/24 02/16/25 History rosuvastatin 40 mg tablet 40 mg PO DAILY 01/26/24 02/16/25 History spironolactone 25 mg tablet 25 mg PO DAILY 01/26/24 02/16/25 History pantoprazole 40 mg tablet,delayed 40 mg PO BID #60 tabs 02/02/24 02/16/25 Rx release mometasone 0.1 % topical ointment 1 applic topical DAILY PRN itching 08/26/24 02/16/25 Rx #45 grams ferrous sulfate 325 mg (65 mg 325 mg PO BID 01/06/25 02/16/25 History iron) tablet (FeroSul) mirabegron 25 mg tablet,extended 25 mg PO DAILY 01/06/25 02/16/25 History release 24 hr (Myrbetriq) tamsulosin 0.4 mg capsule 0.4 mg PO HS 01/06/25 02/16/25 History levothyroxine 175 mcg capsule 175 mcg PO DAILY #30 caps 01/09/25 02/16/25 Rx losartan 25 mg tablet 12.5 mg (1/2 x 25 mg) PO DAILY #30 01/09/25 02/16/25 Rx tabs metoprolol tartrate 25 mg tablet 12.5 mg (1/2 x 25 mg) PO Q12H #30 01/09/25 02/16/25 Rx tabs nitroglycerin 0.4 mg sublingual 0.4 mg sublingual Q5MIN PRN Chest 01/09/25 02/16/25 Rx tablet (Nitrostat) Pain #20 tabs ticagrelor 90 mg tablet (Brilinta) 90 mg PO Q12HR 30 days #60 tabs 02/06/25 02/16/25 Rx dapagliflozin propanediol 5 mg 5 mg PO DAILY 02/16/25 02/16/25 History tablet (Farxiga) paroxetine HCl 20 mg tablet 20 mg PO QAM 02/16/25 02/16/25 History Allergies Allergy/AdvReac Type Severity Reaction Status Date / Time No Known Allergies Allergy Verified 01/06/25 13:47 Vital Signs Vital Signs - 24 hr 02/15/25 16:52 02/15/25 20:25 02/15/25 23:44 Temperature 96.9 F L Pulse Rate 70 68 74 Respiratory Rate 16 14 16 Blood Pressure 123/61 136/74 143/65 H Pulse Oximetry 96 100 100 Oxygen Delivery 02/16/25 00:36 02/16/25 03:57 02/16/25 04:45 Temperature 97.6 F 97.1 F L Pulse Rate 65 63 Respiratory Rate 16 18 Blood Pressure 140/88 120/60 Pulse Oximetry 100 100 Oxygen Delivery Room Air Exam Const: General: uncomfortable Eyes: Sclera: sclerae normal Pupils: Equal, round and reactive pupils present Resp: Effort & Inspection: normal respiratory effort Auscultation: clear to auscultation bilaterally Cardio: Rate: regular rate Rhythm: regular rhythm GI: GI Palp: Yes Soft to palpation Auscultation: normal bowel sounds Neuro: Speech: normal speech Extrem: Other: There is an approximately 3 cm hemorrhagic bulla noted the lateral aspect foreleg with a small surrounding hematoma. There is approximate 9 cm area of erythema, swelling and tenderness. Normal range of motion. 1 +edema of the left lower extremity. Left arm patient unable to lift without help from right arm. Psych: Mental Status: mental status grossly normal Affect: normal affect H&P: Results Labs Labs: Short CBC 02/15/25 02/16/25 Range/Units 20:12 05:26 WBC 6.5 6.6 (4.5-10.0) K/mm3 Hgb 11.4 L 11.4 L (14.0-18.0) g/dL Hct 34.9 L 35.2 L (42.0-52.0) % Plt Count 192 192 (150-375) k/mm3 BMP 02/15/25 02/16/25 20:12 05:26 Sodium 141 142 Potassium 3.6 3.7 Chloride 110 H 114 H Carbon Dioxide 27 23 BUN 21 H 21 H Creatinine 1.62 H 1.51 H Glucose 76 112 H Calcium 8.4 8.2 L Liver Function 02/15/25 Range/Units 20:12 Total Bilirubin 0.5 (0.2-1.3) mg/dL AST 39 (17-59) U/L ALT 27 (6-50) U/L Alkaline Phosphatase 109 (38-126) U/L Albumin 3.1 L (3.5-5.1) g/dL Urine 02/15/25 Range/Units 20:12 Urine Color Yellow (Yellow) Urine Appearance Cloudy H (Clear) Urine pH 5.5 (5.0-9.0) Ur Specific [place] 1.016 (1.001-1.035) Urine Protein 2+ H (Negative) mg/dL Urine Glucose (UA) 1+ H (Negative) mg/dL Assessment and Plan Assessment and plan (1) Falls frequently: Code(s): R29.6 - Repeated falls Status: Acute Assessment and Plan: * PT/OT (2) Weakness: Code(s): R53.1 - Weakness Status: Acute Assessment and Plan: * PT/OT (3) JULIETA (acute kidney injury): Code(s): N17.9 - Acute kidney failure, unspecified Status: Acute Assessment and Plan: * Creatinine 1.62 on arrival, improved to 1.51 after IV fluids. * Continue to trend. * Avoid NSAIDS. (4) Cellulitis of left lower leg: Code(s): L03.116 - Cellulitis of left lower limb Status: Acute Assessment and Plan: * Ceftriaxone 2 gram IVPB daily. * Monitor site. * Afebrile. WBC 6.6. (5) Shoulder pain, bilateral: Code(s): M25.511 - Pain in right shoulder; M25.512 - Pain in left shoulder Status: Acute Assessment and Plan: * Acetaminophen 650 mg PO q 6 PRN. Quality VTE Prophylaxis VTE prophylaxis: pharmacologic ordered Hospitalist MIPS Advance Care Plan I have confirmed that the patient's Advanced Care Plan is present, code status is documented, or surrogate decision maker is listed in patient medical record.: Yes Medication Reconciliation I have utilized all available resources to obtain, update and review the patients current medications (includes all prescriptions, OTC, herbals, cannabis, and nutritional supplements).: Yes
[2025-02-16 11:11] LABS: Free T4 Free Thyroxine Reflex 2.49 ng/dL (0.78-2.19)
[2025-02-16 11:37] LABS: NT Pro B Type Natriuretic Pept 3130 pg/mL (19.9-100)
[2025-02-16] MEDS: LORATADINE 10 MG TABLET PO (13:01)
[2025-02-16] MEDS: guaiFENesin 12 HR 600 MG TABCR PO ×2 (13:01→21:41)
[2025-02-16] MEDS: ASPIRIN 81 MG CHEWABLE TABLET PO (13:01)
[2025-02-16] MEDS: CHOLECALCIFEROL 1,000 UNITS TABLET 2000 UNITS PO (13:01)
[2025-02-16] MEDS: ROSUVASTATIN 20 MG TABLET 40 MG PO (13:02)
[2025-02-16] MEDS: LOSARTAN POTASSIUM 12.5 MG TABLET PO (13:02)
[2025-02-16] MEDS: TICAGRELOR 90 MG TABLET PO ×2 (13:02→21:38)
[2025-02-16] MEDS: MIRABEGRON 25 MG ER TABLET PO (13:02)
[2025-02-16] MEDS: PANTOPRAZOLE 40 MG TABLET PO ×2 (13:02→21:40)
[2025-02-16] MEDS: GABAPENTIN 300 MG CAPSULE 600 MG PO ×2 (13:02→17:40)
[2025-02-16] MEDS: METOPROLOL TARTRATE 12.5 MG TABLET PO ×2 (13:05→21:41)
[2025-02-16 14:31] LABS: Hemoglobin A1C 6.2 % (<5.7)
[2025-02-16] MEDS: FERROUS SULFATE 325 MG TABLET DR PO (17:40)
[2025-02-16] MEDS: oxyBUTYnin CHLORIDE XL 5 MG TAB.ER.24 15 MG PO (21:31)
[2025-02-16] MEDS: cefTRIAXone 2 GM/NS 100 ML 2 GM/100 ML BAG IVPB (21:39)
[2025-02-16] MEDS: TAMSULOSIN HCL 0.4 MG CAPSULE PO (21:40)
[2025-02-16] MEDS: DONEPEZIL HCL 10 MG TABLET PO (21:40)
[2025-02-17 04:39] VITALS: BP 124/63; PULSE 63; RESP 16; TEMP 36.4; O2SAT 99
[2025-02-17 05:51] LABS: Basophils Percent Auto 0.6 % (0.2-1.2); Eosinophils Absolute Auto 0.4 K/mm3 (0-0.3); Eosinophils Percent Auto 5.6 % (0-4.4); Hematocrit 34.5 % (42.0-52.0); Hemoglobin 11.4 g/dL (14.0-18.0); Immature Granulocyte Absolute 0.01 K/mm3 (0.00-0.031); Immature Granulocyte Percent A 0.1 % (0-0.5); Lymphocytes Absolute Auto 1.62 K/mm3 (0.9-3.2); Lymphocytes Percent Auto 23.3 % (18.3-44.2); Mean Corpuscular Hemoglobin 31.2 pg (26-34); Mean Corpuscular Volume 94.5 fl (80-100); Mean Platelet Volume 10.4 fl (7.4-10.4); Monocytes Percent Auto 14.7 % (2.6-8.5); Neutrophils Absolute Auto 3.9 K/mm3 (1.3-6.7); Neutrophils Percent Auto 55.7 % (45.5-73.1); Platelet Count Result 198 k/mm3 (150-375); Red Blood Count 3.65 M/mm3 (4.6-6.20); Red Cell Distribution Width 17.2 % (11.5-14.5)
[2025-02-17 05:59] LABS: Alanine Aminotransferase 27 U/L (6-50); Alkaline Phosphatase 100 U/L (38-126); Anion Gap 4 mmol/L (4-12); Aspartate Amino Transferase 41 U/L (17-59); Bilirubin,Total 0.3 mg/dL (0.2-1.3); Blood Urea Nitrogen 17 mg/dL (9-20); Calcium 8.5 mg/dL (8.4-10.2); Carbon Dioxide 24 mmol/L (22-30); Chloride 112 mmol/L (98-107); Estimated CRCL calculation 39 ml/min; Estimated Glomerular Filt Rate 49; Glucose 119 mg/dL (65-110); Magnesium 2.3 mg/dL (1.6-2.3); Potassium 3.9 mmol/L (3.4-5.0); Sodium 140 mmol/L (137-145)
[2025-02-17] MEDS: LEVOTHYROXINE SODIUM 150 MCG TABLET PO (06:57)
[2025-02-17] MEDS: MIRABEGRON 25 MG ER TABLET PO (09:24)
[2025-02-17] MEDS: CHOLECALCIFEROL 1,000 UNITS TABLET 2000 UNITS PO (09:24)
[2025-02-17] MEDS: PANTOPRAZOLE 40 MG TABLET PO ×2 (09:24→22:03)
[2025-02-17] MEDS: FERROUS SULFATE 325 MG TABLET DR PO ×2 (09:24→17:55)
[2025-02-17] MEDS: GABAPENTIN 300 MG CAPSULE 600 MG PO ×3 (09:24→17:55)
[2025-02-17] MEDS: guaiFENesin 12 HR 600 MG TABCR PO ×2 (09:24→22:03)
[2025-02-17] MEDS: ASPIRIN 81 MG CHEWABLE TABLET PO (09:24)
[2025-02-17] MEDS: TICAGRELOR 90 MG TABLET PO ×2 (09:25→22:03)
[2025-02-17 09:27] VITALS: PULSE 68
[2025-02-17] MEDS: ROSUVASTATIN 20 MG TABLET 40 MG PO (09:27)
[2025-02-17] MEDS: PARoxetine 20 MG TABLET PO (09:27)
[2025-02-17] MEDS: METOPROLOL TARTRATE 12.5 MG TABLET PO ×2 (09:27→22:03)
[2025-02-17] MEDS: LOSARTAN POTASSIUM 12.5 MG TABLET PO (09:27)
[2025-02-17] MEDS: LORATADINE 10 MG TABLET PO (09:29)
[2025-02-17] MEDS: ENOXAPARIN 40 MG/0.4 ML SYRINGE SUB-Q (09:29)
[2025-02-17] MEDS: ACETAMINOPHEN 325 MG TABLET 650 MG PO ×2 (09:57→17:57)
--- NOTE | 2025-02-17 12:08 | P.PNIM_ITS ---
Progress Note: A&P Assessment and Plan (1) Falls frequently: Code(s): R29.6 - Repeated falls Status: Acute Assessment and Plan: * PT/OT (2) Weakness: Code(s): R53.1 - Weakness Status: Acute Assessment and Plan: * PT/OT (3) JULIETA (acute kidney injury): Code(s): N17.9 - Acute kidney failure, unspecified Status: Acute Assessment and Plan: * Creatinine 1.62 on arrival, currently 1.40. * Continue to trend. * Avoid NSAIDS. (4) Cellulitis of left lower leg: Code(s): L03.116 - Cellulitis of left lower limb Status: Acute Assessment and Plan: * Ceftriaxone 2 gram IVPB daily. * Monitor site. * Afebrile. WBC 7.0. * Wound culture pending. (5) Shoulder pain, bilateral: Code(s): M25.511 - Pain in right shoulder; M25.512 - Pain in left shoulder Status: Acute Assessment and Plan: * Acetaminophen 650 mg PO q 6 PRN. (6) Hypothyroidism: Code(s): E03.9 - Hypothyroidism, unspecified Status: Acute Assessment and Plan: * TSH <0.015, Free T4 2.49. * Decreased Levothyroxine to 150 mcg PO daily. Subjective Date/time seen: 02/17/25 12:08 Interval history: Patient sitting up in bed. Patient denies chest pain, palpitations, headache, dizziness, nausea, or vomiting. at bedside. Review of Systems Review of Systems: All systems reviewed & are unremarkable except as noted in HPI and below Exam Const: General: comfortable and no acute distress Resp: Effort & Inspection: normal respiratory effort Auscultation: clear to auscultation bilaterally Cardio: Rate: regular rate Rhythm: regular rhythm GI: GI Palp: Yes Soft to palpation Auscultation: normal bowel sounds Neuro: Speech: normal speech Extrem: Other: There is an approximately 3 cm hemorrhagic bulla noted the lateral aspect foreleg with a small surrounding hematoma. There is approximate 9 cm area of erythema slightly fading, swelling and tenderness. Normal range of motion. 1 +edema of the left lower extremity. Psych: Mental Status: mental status grossly normal Affect: normal affect Objective Data Vital Signs Vital Signs: Vital Signs - 24 hr 02/16/25 13:05 02/16/25 13:05 02/16/25 13:25 Temperature Pulse Rate 66 Respiratory Rate Blood Pressure Pulse Oximetry 98 Oxygen Delivery Room Air Room Air 02/16/25 14:00 02/16/25 21:18 02/16/25 21:40 Temperature 97.1 F L 97.8 F Pulse Rate 64 58 L Respiratory Rate 18 16 Blood Pressure 125/70 122/59 L Pulse Oximetry 100 98 Oxygen Delivery Room Air 02/16/25 21:41 02/17/25 04:39 02/17/25 09:27 Temperature 97.6 F Pulse Rate 72 63 68 Respiratory Rate 16 Blood Pressure 124/63 Pulse Oximetry 99 Oxygen Delivery 02/17/25 10:57 Temperature Pulse Rate Respiratory Rate Blood Pressure Pulse Oximetry Oxygen Delivery Room Air Intake/Output Intake/Output: Intake & Output 02/14/25 02/15/25 02/16/25 02/17/25 23:59 23:59 23:59 23:59 Intake Total 100 1310 830 Output Total 1625 800 Balance 100 -315 30 Meds/Results Medications: Active Medications Generic Name Dose Route Start Last Admin Trade Name Freq PRN Reason Stop Dose Admin Acetaminophen 650 mg 02/16/25 03:09 02/17/25 09:57 Acetaminophen 325 Mg Tablet PO 650 mg Q6H PRN Administration Mild Pain (1-3) or Fever Aspirin 81 mg 02/16/25 11:30 02/17/25 09:24 Aspirin 81 Mg Chewable Tablet PO 81 mg DAILY AIMEE Administration Donepezil HCl 10 mg 02/16/25 21:00 02/16/25 21:40 Donepezil Hcl 10 Mg Tablet PO 10 mg QHS AIMEE Administration Enoxaparin Sodium 40 mg 02/17/25 09:00 02/17/25 09:29 Enoxaparin 40 Mg/0.4 Ml Syringe SUB-Q 40 mg DAILY AIMEE Administration Ferrous Sulfate 325 mg 02/16/25 17:00 02/17/25 09:24 Ferrous Sulfate [address] PO 325 mg BIDWM AIMEE Administration Gabapentin 600 mg 02/16/25 13:00 02/17/25 12:01 Gabapentin 300 Mg Capsule PO 600 mg TID AIMEE Administration Guaifenesin 600 mg 02/16/25 10:40 02/17/25 09:24 Guaifenesin 12 Hr 600 Mg Tabcr PO 02/23/25 10:39 600 mg Q12HR AIMEE Administration Ceftriaxone Sodium 2 gm in 100 mls @ 200 mls/hr 02/16/25 21:00 02/16/25 21:39 Rocephin 2 Gm/Ns 100 Ml IVPB 200 mls/hr Q24H IAMEE Administration Levothyroxine Sodium 150 mcg 02/17/25 06:30 02/17/25 06:57 Levothyroxine Sodium 150 Mcg Tablet PO 150 mcg DAILY@0630 AIMEE Administration Loratadine 10 mg 02/16/25 09:00 02/17/25 09:29 Loratadine 10 Mg Tablet PO 10 mg DAILY AIMEE Administration Losartan Potassium 12.5 mg 02/16/25 11:30 02/17/25 09:27 Losartan Potassium 12.5 Mg Tablet PO 12.5 mg DAILY AIMEE Administration Melatonin 10 mg 02/16/25 10:38 Melatonin 5 Mg Tablet PO HS PRN Sleep Metoprolol Tartrate 12.5 mg 02/16/25 11:30 02/17/25 09:27 Metoprolol Tartrate 12.5 Mg Tablet PO 12.5 mg Q12HR AIMEE Administration Mirabegron 25 mg 02/16/25 11:30 02/17/25 09:24 Mirabegron 25 Mg Er Tablet PO 25 mg DAILY AIMEE Administration Nitroglycerin 0.4 mg 02/16/25 10:38 Nitroglycerin Sl 0.4 Mg Tablet SUBLINGUAL Q5MIN PRN Chest Pain Oxybutynin Chloride 15 mg 02/16/25 21:00 02/16/25 21:31 Oxybutynin Chloride Xl 5 Mg Tab.Er.24 PO 15 mg HS AIMEE Administration Pantoprazole Sodium 40 mg 02/16/25 11:30 02/17/25 09:24 Pantoprazole 40 Mg Tablet PO 40 mg Q12HR AIMEE Administration Paroxetine HCl 20 mg 02/17/25 09:00 02/17/25 09:27 Paroxetine 20 Mg Tablet PO 20 mg QAM AIMEE Administration Polyethylene Glycol 17 gm 02/16/25 10:43 Polyethylene Glycol 3350 17 Gm Powd.Pack PO QAM PRN Constipation Rosuvastatin Calcium 40 mg 02/16/25 11:30 02/17/25 09:27 Rosuvastatin 20 Mg Tablet PO 40 mg DAILY AIMEE Administration Tamsulosin HCl 0.4 mg 02/16/25 21:00 02/16/25 21:40 Tamsulosin Hcl 0.4 Mg Capsule PO 0.4 mg HS AIMEE Administration Ticagrelor 90 mg 02/16/25 11:30 02/17/25 09:25 Ticagrelor 90 Mg Tablet PO 90 mg Q12HR AIMEE Administration Vitamin D 2,000 units 02/16/25 11:30 02/17/25 09:24 Cholecalciferol 1,000 Units Tablet PO 2,000 units DAILY AIMEE Administration Radiology Results: ITS Impressions Foot X-Ray 02/15/25 20:31 IMPRESSION: Unremarkable radiographic evaluation of the left foot, as detailed Tibia/Fibula X-Ray 02/15/25 20:32 IMPRESSION: 3 cm soft tissue density within the lower third of the anterior lower extremity, as detailed above. No acute fracture. Chest X-Ray 02/16/25 12:39 Impression: Clear lungs. Postsurgical change and hiatal hernia, stable from prior exam. Labs Labs: Laboratory Results - last 24 hr 02/16/25 02/17/25 05:26 05:43 WBC 7.0 RBC 3.65 L Hgb 11.4 L Hct 34.5 L MCV 94.5 MCH 31.2 MCHC 33.0 RDW 17.2 H Plt Count 198 MPV 10.4 Immature Gran % (Auto) 0.1 Neut % (Auto) 55.7 Lymph % (Auto) 23.3 [place] % (Auto) 14.7 H Eos % (Auto) 5.6 H Baso % (Auto) 0.6 Lymph # (Auto) 1.62 Mitchell # (Auto) 1.0 H Eos # (Auto) 0.4 H Baso # (Auto) 0.0 Abs Immat Gran (auto) 0.01 Absolute Neuts (auto) 3.9 Absolute Nucleated RBC 0.000 Nucleated RBC % 0.0 Sodium 140 Potassium 3.9 Chloride 112 H Carbon Dioxide 24 Anion Gap 4 BUN 17 Creatinine 1.40 H Estim Creat Clear Calc 39 Estimated GFR 49 L Glucose 119 H Hemoglobin A1c 6.2 H Calcium 8.5 Magnesium 2.3 Total Bilirubin 0.3 AST 41 ALT 27 Alkaline Phosphatase 100 Total Protein 6.0 L Albumin 3.0 L Quality VTE Prophylaxis VTE prophylaxis: pharmacologic ordered
[2025-02-17 14:00] VITALS: BP 110/62; PULSE 59; RESP 16; TEMP 36.6; O2SAT 98
[2025-02-17] MEDS: guaiFENesin/DEXTROMETHORPHAN 10 ML UDC PO (17:55)
[2025-02-17 20:58] VITALS: BP 121/66; PULSE 55; RESP 16; TEMP 36.6; O2SAT 99
[2025-02-17] MEDS: cefTRIAXone 2 GM/NS 100 ML 2 GM/100 ML BAG IVPB (21:58)
[2025-02-17] MEDS: DONEPEZIL HCL 10 MG TABLET PO (22:01)
[2025-02-17] MEDS: oxyBUTYnin CHLORIDE XL 5 MG TAB.ER.24 15 MG PO (22:02)
[2025-02-17] MEDS: TAMSULOSIN HCL 0.4 MG CAPSULE PO (22:02)
[2025-02-17 22:03] VITALS: PULSE 62
[2025-02-18 05:12] VITALS: BP 135/63; PULSE 78; RESP 16; TEMP 36.6; O2SAT 96
[2025-02-18 05:33] LABS: Basophils Absolute Auto 0.1 K/mm3 (0.0-0.1); Basophils Percent Auto 0.6 % (0.2-1.2); Eosinophils Absolute Auto 0.5 K/mm3 (0-0.3); Eosinophils Percent Auto 6.9 % (0-4.4); Hematocrit 34.8 % (42.0-52.0); Hemoglobin 11.5 g/dL (14.0-18.0); Immature Granulocyte Absolute 0.02 K/mm3 (0.00-0.031); Immature Granulocyte Percent A 0.3 % (0-0.5); Lymphocytes Percent Auto 24.2 % (18.3-44.2); Mean Corpuscular Hemoglobin 30.7 pg (26-34); Monocytes Absolute Auto 0.9 K/mm3 (0.1-0.6); Monocytes Percent Auto 11.4 % (2.6-8.5); Neutrophils Absolute Auto 4.4 K/mm3 (1.3-6.7); Neutrophils Percent Auto 56.6 % (45.5-73.1); Platelet Count Result 198 k/mm3 (150-375); Red Blood Count 3.74 M/mm3 (4.6-6.20); Red Cell Distribution Width 16.9 % (11.5-14.5); White Blood Count 7.8 K/mm3 (4.5-10.0)
[2025-02-18 05:44] LABS: Alanine Aminotransferase 30 U/L (6-50); Alkaline Phosphatase 106 U/L (38-126); Anion Gap 6 mmol/L (4-12); Aspartate Amino Transferase 49 U/L (17-59); Bilirubin,Total 0.4 mg/dL (0.2-1.3); Blood Urea Nitrogen 20 mg/dL (9-20); Calcium 8.5 mg/dL (8.4-10.2); Carbon Dioxide 23 mmol/L (22-30); Chloride 109 mmol/L (98-107); Estimated CRCL calculation 40 ml/min; Estimated Glomerular Filt Rate 50; Glucose 101 mg/dL (65-110); Magnesium 2.2 mg/dL (1.6-2.3); Potassium 4.1 mmol/L (3.4-5.0); Sodium 138 mmol/L (137-145)
[2025-02-18] MEDS: LEVOTHYROXINE SODIUM 150 MCG TABLET PO (06:05)
[2025-02-18 08:54] VITALS: BP 118/68; PULSE 58
[2025-02-18] MEDS: ROSUVASTATIN 20 MG TABLET 40 MG PO (08:55)
[2025-02-18] MEDS: GABAPENTIN 300 MG CAPSULE 600 MG PO ×3 (08:55→17:08)
[2025-02-18] MEDS: guaiFENesin 12 HR 600 MG TABCR PO ×2 (08:55→20:33)
[2025-02-18] MEDS: PARoxetine 20 MG TABLET PO (08:55)
[2025-02-18] MEDS: LOSARTAN POTASSIUM 12.5 MG TABLET PO (08:55)
[2025-02-18 08:56] VITALS: PULSE 58
[2025-02-18] MEDS: PANTOPRAZOLE 40 MG TABLET PO ×2 (08:56→20:33)
[2025-02-18] MEDS: LORATADINE 10 MG TABLET PO (08:56)
[2025-02-18] MEDS: TICAGRELOR 90 MG TABLET PO ×2 (08:56→20:33)
[2025-02-18] MEDS: MIRABEGRON 25 MG ER TABLET PO (08:56)
[2025-02-18] MEDS: CHOLECALCIFEROL 1,000 UNITS TABLET 2000 UNITS PO (08:56)
[2025-02-18] MEDS: FERROUS SULFATE 325 MG TABLET DR PO ×2 (08:56→17:08)
[2025-02-18] MEDS: METOPROLOL TARTRATE 12.5 MG TABLET PO ×2 (08:56→20:33)
[2025-02-18] MEDS: ENOXAPARIN 40 MG/0.4 ML SYRINGE SUB-Q (08:57)
[2025-02-18] MEDS: ASPIRIN 81 MG CHEWABLE TABLET PO (08:57)
--- NOTE | 2025-02-18 10:09 | P.PNIM_ITS ---
Progress Note: A&P Assessment and Plan (1) Falls frequently: Code(s): R29.6 - Repeated falls Status: Acute Assessment and Plan: * PT/OT (2) Weakness: Code(s): R53.1 - Weakness Status: Acute Assessment and Plan: * PT/OT (3) JULIETA (acute kidney injury): Code(s): N17.9 - Acute kidney failure, unspecified Status: Acute Assessment and Plan: * Creatinine 1.62 on arrival, currently 1.36. * Continue to trend. * Avoid NSAIDS. (4) Cellulitis of left lower leg: Code(s): L03.116 - Cellulitis of left lower limb Status: Acute Assessment and Plan: * Ceftriaxone 2 gram IVPB daily. * Monitor site. * Afebrile. WBC 7.8. * Wound culture pending. (5) UTI (urinary tract infection): Qualifiers: Hematuria presence: without hematuria Urinary tract infection type: acute cystitis Qualified Code(s): N30.00 - Acute cystitis without hematuria Code(s): N39.0 - Urinary tract infection, site not specified Status: Acute Assessment and Plan: * Urine grew Enterococcus Species. * Ampicillin 500 mg PO q 6 PRN added. * Afebrile, WBC 7.8. (6) Shoulder pain, bilateral: Code(s): M25.511 - Pain in right shoulder; M25.512 - Pain in left shoulder Status: Acute Assessment and Plan: * Acetaminophen 650 mg PO q 6 PRN. (7) Hypothyroidism: Code(s): E03.9 - Hypothyroidism, unspecified Status: Acute Assessment and Plan: * TSH <0.015, Free T4 2.49. * Decreased Levothyroxine to 150 mcg PO daily. (8) Insomnia: Code(s): G47.00 - Insomnia, unspecified Status: Acute Assessment and Plan: * Melatonin 10 mg PO QHS. Subjective Date/time seen: 02/18/25 10:10 Interval history: Patient reports pain in left leg after getting up is a 7 , frequent, and aching. Patient reports occasional green sputum. Denies chest pain, palp itations, headache, dizziness, nausea, or vomiting. Patient reports eyes are dry and he would like wetting drops. Review of Systems Review of Systems: All systems reviewed & are unremarkable except as noted in HPI and below Exam Const: General: no acute distress and uncomfortable Resp: Effort & Inspection: normal respiratory effort Auscultation: clear to auscultation bilaterally Cardio: Rate: regular rate Rhythm: regular rhythm GI: GI Palp: Yes Soft to palpation Auscultation: normal bowel sounds Neuro: Speech: normal speech Extrem: Other: There is an approximately 3 cm hemorrhagic bulla noted the lateral aspect foreleg with a small surrounding hematoma. There is approximate 9 cm area of erythema slightly fading, swelling and tenderness. Normal range of motion. 1 +edema of the left lower extremity. Psych: Mental Status: mental status grossly normal Affect: normal affect Objective Data Vital Signs Vital Signs: Vital Signs - 24 hr 02/17/25 10:57 02/17/25 14:00 02/17/25 20:58 Temperature 97.9 F 97.8 F Pulse Rate 59 L 55 L Respiratory Rate 16 16 Blood Pressure 110/62 121/66 Pulse Oximetry 98 99 Oxygen Delivery Room Air 02/17/25 22:00 02/17/25 22:03 02/18/25 05:12 Temperature 97.9 F Pulse Rate 62 78 Respiratory Rate 16 Blood Pressure 135/63 Pulse Oximetry 96 Oxygen Delivery Room Air 02/18/25 08:54 02/18/25 08:55 02/18/25 08:56 Temperature Pulse Rate 58 L 58 L Respiratory Rate Blood Pressure 118/68 Pulse Oximetry Oxygen Delivery Room Air Intake/Output Intake/Output: Intake & Output 02/15/25 02/16/25 02/17/25 02/18/25 23:59 23:59 23:59 23:59 Intake Total 100 1410 1070 670 Output Total 1625 2950 900 Balance 100 -231 -4680 -964 Meds/Results Medications: Active Medications Generic Name Dose Route Start Last Admin Trade Name Freq PRN Reason Stop Dose Admin Acetaminophen 650 mg 02/16/25 03:09 02/17/25 17:57 Acetaminophen 325 Mg Tablet PO 650 mg Q6H PRN Administration Mild Pain (1-3) or Fever Ampicillin 500 mg 02/18/25 12:00 Ampicillin Trihydrate 500 Mg Capsule PO Q6HR [facility] Aspirin 81 mg 02/16/25 11:30 02/18/25 08:57 Aspirin 81 Mg Chewable Tablet PO 81 mg DAILY AIMEE Administration Donepezil HCl 10 mg 02/16/25 21:00 02/17/25 22:01 Donepezil Hcl 10 Mg Tablet PO 10 mg QHS AIMEE Administration Enoxaparin Sodium 40 mg 02/17/25 09:00 02/18/25 08:57 Enoxaparin 40 Mg/0.4 Ml Syringe SUB-Q 40 mg DAILY AIMEE Administration Ferrous Sulfate 325 mg 02/16/25 17:00 02/18/25 08:56 Ferrous Sulfate [address] PO 325 mg BIDWM AIMEE Administration Gabapentin 600 mg 02/16/25 13:00 02/18/25 08:55 Gabapentin 300 Mg Capsule PO 600 mg TID AIMEE Administration Guaifenesin 600 mg 02/16/25 10:40 02/18/25 08:55 Guaifenesin 12 Hr 600 Mg Tabcr PO 02/23/25 10:39 600 mg Q12HR AIMEE Administration Guaifenesin/Dextromethorphan 10 ml 02/17/25 13:48 02/17/25 17:55 Guaifenesin/Dextromethorphan 10 Ml Udc PO 10 ml Q4H PRN Administration Cough Ceftriaxone Sodium 2 gm in 100 mls @ 200 mls/hr 02/16/25 21:00 02/17/25 21:58 Rocephin 2 Gm/Ns 100 Ml IVPB 200 mls/hr Q24H AIMEE Administration Levothyroxine Sodium 150 mcg 02/17/25 06:30 02/18/25 06:05 Levothyroxine Sodium 150 Mcg Tablet PO 150 mcg DAILY@0630 AIMEE Administration Loratadine 10 mg 02/16/25 09:00 02/18/25 08:56 Loratadine 10 Mg Tablet PO 10 mg DAILY AIMEE Administration Losartan Potassium 12.5 mg 02/16/25 11:30 02/18/25 08:55 Losartan Potassium 12.5 Mg Tablet PO 12.5 mg DAILY AIMEE Administration Melatonin 10 mg 02/16/25 10:38 Melatonin 5 Mg Tablet PO HS PRN Sleep Metoprolol Tartrate 12.5 mg 02/16/25 11:30 02/18/25 08:56 Metoprolol Tartrate 12.5 Mg Tablet PO 12.5 mg Q12HR AIMEE Administration Mirabegron 25 mg 02/16/25 11:30 02/18/25 08:56 Mirabegron 25 Mg Er Tablet PO 25 mg DAILY AIMEE Administration Nitroglycerin 0.4 mg 02/16/25 10:38 Nitroglycerin Sl 0.4 Mg Tablet SUBLINGUAL Q5MIN PRN Chest Pain Oxybutynin Chloride 15 mg 02/16/25 21:00 02/17/25 22:02 Oxybutynin Chloride Xl 5 Mg Tab.Er.24 PO 15 mg HS AIMEE Administration Pantoprazole Sodium 40 mg 02/16/25 11:30 02/18/25 08:56 Pantoprazole 40 Mg Tablet PO 40 mg Q12HR AIMEE Administration Paroxetine HCl 20 mg 02/17/25 09:00 02/18/25 08:55 Paroxetine 20 Mg Tablet PO 20 mg QAM AIMEE Administration Polyethylene Glycol 17 gm 02/16/25 10:43 Polyethylene Glycol 3350 17 Gm Powd.Pack PO QAM PRN Constipation Rosuvastatin Calcium 40 mg 02/16/25 11:30 02/18/25 08:55 Rosuvastatin 20 Mg Tablet PO 40 mg DAILY AIMEE Administration Tamsulosin HCl 0.4 mg 02/16/25 21:00 02/17/25 22:02 Tamsulosin Hcl 0.4 Mg Capsule PO 0.4 mg HS AIMEE Administration Ticagrelor 90 mg 02/16/25 11:30 02/18/25 08:56 Ticagrelor 90 Mg Tablet PO 90 mg Q12HR AIMEE Administration Vitamin D 2,000 units 02/16/25 11:30 02/18/25 08:56 Cholecalciferol 1,000 Units Tablet PO 2,000 units DAILY AIMEE Administration Radiology Results: ITS Impressions Foot X-Ray 02/15/25 20:31 IMPRESSION: Unremarkable radiographic evaluation of the left foot, as detailed Tibia/Fibula X-Ray 02/15/25 20:32 IMPRESSION: 3 cm soft tissue density within the lower third of the anterior lower extremity, as detailed above. No acute fracture. Chest X-Ray 02/16/25 12:39 Impression: Clear lungs. Postsurgical change and hiatal hernia, stable from prior exam. Labs Labs: Laboratory Results - last 24 hr 02/18/25 05:25 WBC 7.8 RBC 3.74 L Hgb 11.5 L Hct 34.8 L MCV 93.0 MCH 30.7 MCHC 33.0 RDW 16.9 H Plt Count 198 MPV 10.0 Immature Gran % (Auto) 0.3 Neut % (Auto) 56.6 Lymph % (Auto) 24.2 [place] % (Auto) 11.4 H Eos % (Auto) 6.9 H Baso % (Auto) 0.6 Lymph # (Auto) 1.90 [place] # (Auto) 0.9 H Eos # (Auto) 0.5 H Baso # (Auto) 0.1 Abs Immat Gran (auto) 0.02 Absolute Neuts (auto) 4.4 Absolute Nucleated RBC 0.000 Nucleated RBC % 0.0 Sodium 138 Potassium 4.1 Chloride 109 H Carbon Dioxide 23 Anion Gap 6 BUN 20 Creatinine 1.36 H Estim Creat Clear Calc 40 Estimated GFR 50 L Glucose 101 Calcium 8.5 Magnesium 2.2 Total Bilirubin 0.4 AST 49 ALT 30 Alkaline Phosphatase 106 Total Protein 6.0 L Albumin 3.0 L Quality VTE Prophylaxis VTE prophylaxis: pharmacologic ordered
[2025-02-18] MEDS: AMPICILLIN TRIHYDRATE 500 MG CAPSULE PO ×2 (12:06→17:08)
[2025-02-18] MEDS: guaiFENesin/DEXTROMETHORPHAN 10 ML UDC PO ×2 (12:06→20:34)
[2025-02-18] MEDS: ARTIFICIAL TEARS OPHTH SOLN 15 ML BOTTLE 1 DROP EACH EYE (12:06)
[2025-02-18 15:00] VITALS: BP 94/75; PULSE 82; RESP 18; TEMP 36.4; O2SAT 100
[2025-02-18] MEDS: ACETAMINOPHEN 325 MG TABLET 650 MG PO (17:08)
[2025-02-18] MEDS: oxyBUTYnin CHLORIDE XL 5 MG TAB.ER.24 15 MG PO (20:32)
[2025-02-18] MEDS: DONEPEZIL HCL 10 MG TABLET PO (20:33)
[2025-02-18] MEDS: TAMSULOSIN HCL 0.4 MG CAPSULE PO (20:33)
[2025-02-18] MEDS: cefTRIAXone 2 GM/NS 100 ML 2 GM/100 ML BAG IVPB (20:34)
[2025-02-18] MEDS: MELATONIN 5 MG TABLET 10 MG PO (21:09)
[2025-02-18 22:53] VITALS: BP 104/50; PULSE 64; RESP 18; TEMP 36.5; O2SAT 97
[2025-02-19] MEDS: AMPICILLIN TRIHYDRATE 500 MG CAPSULE PO ×2 (00:44→05:37)
[2025-02-19] MEDS: LEVOTHYROXINE SODIUM 150 MCG TABLET PO (05:37)
[2025-02-19 06:00] VITALS: BP 105/56; PULSE 80; RESP 18; TEMP 36.8; O2SAT 98
[2025-02-19 06:11] LABS: Basophils Absolute Auto 0.1 K/mm3 (0.0-0.1); Basophils Percent Auto 0.6 % (0.2-1.2); Eosinophils Absolute Auto 0.5 K/mm3 (0-0.3); Eosinophils Percent Auto 6.7 % (0-4.4); Hematocrit 36.2 % (42.0-52.0); Hemoglobin 11.6 g/dL (14.0-18.0); Immature Granulocyte Absolute 0.04 K/mm3 (0.00-0.031); Immature Granulocyte Percent A 0.5 % (0-0.5); Lymphocytes Absolute Auto 1.76 K/mm3 (0.9-3.2); Lymphocytes Percent Auto 22.1 % (18.3-44.2); Mean Corpuscular Hemoglobin 30.9 pg (26-34); Mean Corpuscular Volume 96.3 fl (80-100); Mean Platelet Volume 10.6 fl (7.4-10.4); Monocytes Absolute Auto 0.9 K/mm3 (0.1-0.6); Monocytes Percent Auto 11.3 % (2.6-8.5); Neutrophils Absolute Auto 4.7 K/mm3 (1.3-6.7); Neutrophils Percent Auto 58.8 % (45.5-73.1); Platelet Count Result 216 k/mm3 (150-375); Red Blood Count 3.76 M/mm3 (4.6-6.20); Red Cell Distribution Width 16.7 % (11.5-14.5)
[2025-02-19 06:20] LABS: Alanine Aminotransferase 34 U/L (6-50); Alkaline Phosphatase 107 U/L (38-126); Anion Gap 7 mmol/L (4-12); Aspartate Amino Transferase 52 U/L (17-59); Bilirubin,Total 0.5 mg/dL (0.2-1.3); Blood Urea Nitrogen 22 mg/dL (9-20); Calcium 8.4 mg/dL (8.4-10.2); Carbon Dioxide 23 mmol/L (22-30); Chloride 108 mmol/L (98-107); Estimated CRCL calculation 40 ml/min; Estimated Glomerular Filt Rate 50; Glucose 110 mg/dL (65-110); Magnesium 2.2 mg/dL (1.6-2.3); Potassium 4.1 mmol/L (3.4-5.0); Sodium 138 mmol/L (137-145)
[2025-02-19 08:34] VITALS: BP 108/59; PULSE 57
[2025-02-19] MEDS: MIRABEGRON 25 MG ER TABLET PO (08:36)
[2025-02-19] MEDS: GABAPENTIN 300 MG CAPSULE 600 MG PO ×3 (08:36→17:00)
[2025-02-19] MEDS: CHOLECALCIFEROL 1,000 UNITS TABLET 2000 UNITS PO (08:36)
[2025-02-19] MEDS: ROSUVASTATIN 20 MG TABLET 40 MG PO (08:36)
[2025-02-19] MEDS: guaiFENesin/DEXTROMETHORPHAN 10 ML UDC PO ×2 (08:36→21:12)
[2025-02-19] MEDS: FERROUS SULFATE 325 MG TABLET DR PO ×2 (08:37→17:00)
[2025-02-19] MEDS: TICAGRELOR 90 MG TABLET PO ×2 (08:37→21:21)
[2025-02-19] MEDS: PARoxetine 20 MG TABLET PO (08:37)
[2025-02-19] MEDS: guaiFENesin 12 HR 600 MG TABCR PO ×2 (08:37→21:14)
[2025-02-19] MEDS: PANTOPRAZOLE 40 MG TABLET PO ×2 (08:37→21:14)
[2025-02-19] MEDS: ASPIRIN 81 MG CHEWABLE TABLET PO (08:37)
[2025-02-19] MEDS: LORATADINE 10 MG TABLET PO (08:37)
[2025-02-19] MEDS: ENOXAPARIN 40 MG/0.4 ML SYRINGE SUB-Q (08:38)
[2025-02-19] MEDS: traMADol HCL (*CRX) 50 MG TABLET PO ×2 (09:29→15:44)
--- NOTE | 2025-02-19 12:20 | P.PNIM_ITS ---
Progress Note: A&P Assessment and Plan (1) Falls frequently: Code(s): R29.6 - Repeated falls Status: Acute Assessment and Plan: * PT/OT (2) Weakness: Code(s): R53.1 - Weakness Status: Acute Assessment and Plan: * PT/OT (3) JULIETA (acute kidney injury): Code(s): N17.9 - Acute kidney failure, unspecified Status: Acute Assessment and Plan: * Creatinine 1.62 on arrival, currently 1.36. * Continue to trend. * Avoid NSAIDS. (4) Cellulitis of left lower leg: Code(s): L03.116 - Cellulitis of left lower limb Status: Acute Assessment and Plan: * Amoxicillin 500 mg PO q8 and Doxycycline 100 mg PO q12. * Monitor site. * Afebrile. WBC 8.0. * Wound culture pending. * Wound consult placed, no recommendations at this time. * LLE CT with contrast showed: IMPRESSION: 1. 5.5 x 2.0 x 1.4 cm lenticular lesion in the subcutaneous fat at the anterior mid to distal left lower leg most likely representing complex fluid and either a hematoma or abscess in the appropriate clinical setting. * ASA placed on hold. * Surgery consult placed. * Pain regimen. (5) UTI (urinary tract infection): Qualifiers: Hematuria presence: without hematuria Urinary tract infection type: acute cystitis Qualified Code(s): N30.00 - Acute cystitis without hematuria Code(s): N39.0 - Urinary tract infection, site not specified Status: Acute Assessment and Plan: * Urine grew Enterococcus Species. * Amoxicillin 500 mg PO q 8. * Afebrile, WBC 8.0. (6) Shoulder pain, bilateral: Code(s): M25.511 - Pain in right shoulder; M25.512 - Pain in left shoulder Status: Acute Assessment and Plan: * Acetaminophen 650 mg PO q 6 PRN. (7) Hypothyroidism: Code(s): E03.9 - Hypothyroidism, unspecified Status: Acute Assessment and Plan: * TSH <0.015, Free T4 2.49. * Decreased Levothyroxine to 150 mcg PO daily. (8) Insomnia: Code(s): G47.00 - Insomnia, unspecified Status: Acute Assessment and Plan: * Melatonin 10 mg PO QHS. Subjective Date/time seen: 02/19/25 12:20 Interval history: Patient reports pain in left lower leg a 7 when he was up with therapy this morning, pain currently is a 5 , frequent, and aching. Patient and nurse report that area was red and warm to touch this morning before he placed ice on it. Patient denies chest pain, palpitations, headache, dizziness, nausea, or vomiting. Review of Systems Review of Systems: All systems reviewed & are unremarkable except as noted in HPI and below Exam Const: General: no acute distress and uncomfortable Resp: Effort & Inspection: normal respiratory effort Auscultation: clear to auscultation bilaterally Cardio: Rate: regular rate Rhythm: regular rhythm GI: GI Palp: Yes Soft to palpation Auscultation: normal bowel sounds Neuro: Speech: normal speech Extrem: Other: There is an approximately 3 cm hemorrhagic bulla noted the lateral aspect foreleg with a small surrounding hematoma. There is approximate 9 cm area of erythema darker red today with warmth this morning, swelling and tenderness. Normal range of motion. 1 +edema of the left lower extremity. Psych: Mental Status: mental status grossly normal Affect: normal affect Objective Data Vital Signs Vital Signs: Vital Signs - 24 hr 02/18/25 15:00 02/18/25 20:00 02/18/25 22:53 Temperature 97.6 F 97.7 F Pulse Rate 82 64 Respiratory Rate 18 18 Blood Pressure 94/75 L 104/50 L Pulse Oximetry 100 97 Oxygen Delivery Room Air 02/19/25 06:00 02/19/25 08:34 02/19/25 08:35 Temperature 98.2 F Pulse Rate 80 57 L Respiratory Rate 18 Blood Pressure 105/56 L 108/59 L Pulse Oximetry 98 Oxygen Delivery Room Air Intake/Output Intake/Output: Intake & Output 02/16/25 02/17/25 02/18/25 02/19/25 23:59 23:59 23:59 23:59 Intake Total 1410 1170 1550 690 Output Total 1625 2950 2300 1000 Balance -215 -1780 -750 -310 Meds/Results Medications: Active Medications Generic Name Dose Route Start Last Admin Trade Name Freq PRN Reason Stop Dose Admin Acetaminophen 650 mg 02/16/25 03:09 02/18/25 17:08 Acetaminophen 325 Mg Tablet PO 650 mg Q6H PRN Administration Mild Pain (1-3) or Fever Amoxicillin 500 mg 02/19/25 13:00 Amoxicillin 500 Mg Capsule PO Q8HR [facility] Artificial Tears 1 drop 02/18/25 10:10 02/18/25 12:06 Artificial Tears Ophth Soln 15 Ml Bottle EACH EYE 1 drop QID PRN Administration Dry Eye(s) Aspirin 81 mg 02/16/25 11:30 02/19/25 08:37 Aspirin 81 Mg Chewable Tablet PO 81 mg DAILY AIMEE Administration Donepezil HCl 10 mg 02/16/25 21:00 02/18/25 20:33 Donepezil Hcl 10 Mg Tablet PO 10 mg QHS AIMEE Administration Doxycycline Hyclate 100 mg 02/19/25 10:00 Doxycycline Hyclate 100 Mg Tablet PO Q12HR [facility] Enoxaparin Sodium 40 mg 02/17/25 09:00 02/19/25 08:38 Enoxaparin 40 Mg/0.4 Ml Syringe SUB-Q 40 mg DAILY AIMEE Administration Ferrous Sulfate 325 mg 02/16/25 17:00 02/19/25 08:37 Ferrous Sulfate [address] PO 325 mg BIDWM AIMEE Administration Gabapentin 600 mg 02/16/25 13:00 02/19/25 08:36 Gabapentin 300 Mg Capsule PO 600 mg TID [facility] Administration Guaifenesin 600 mg 02/16/25 10:40 02/19/25 08:37 Guaifenesin 12 Hr 600 Mg Tabcr PO 02/23/25 10:39 600 mg Q12HR AIMEE Administration Guaifenesin/Dextromethorphan 10 ml 02/17/25 13:48 02/19/25 08:36 Guaifenesin/Dextromethorphan 10 Ml Udc PO 10 ml Q4H PRN Administration Cough Levothyroxine Sodium 150 mcg 02/17/25 06:30 02/19/25 05:37 Levothyroxine Sodium 150 Mcg Tablet PO 150 mcg DAILY@0630 [facility] Administration Loratadine 10 mg 02/16/25 09:00 02/19/25 08:37 Loratadine 10 Mg Tablet PO 10 mg DAILY AIMEE Administration Losartan Potassium 12.5 mg 02/16/25 11:30 02/18/25 08:55 Losartan Potassium 12.5 Mg Tablet PO 12.5 mg DAILY AIMEE Administration Melatonin 10 mg 02/18/25 21:00 02/18/25 21:09 Melatonin 5 Mg Tablet PO 10 mg HS AIMEE Administration Metoprolol Tartrate 12.5 mg 02/16/25 11:30 02/18/25 20:33 Metoprolol Tartrate 12.5 Mg Tablet PO 12.5 mg Q12HR AIMEE Administration Mirabegron 25 mg 02/16/25 11:30 02/19/25 08:36 Mirabegron 25 Mg Er Tablet PO 25 mg DAILY AIMEE Administration Nitroglycerin 0.4 mg 02/16/25 10:38 Nitroglycerin Sl 0.4 Mg Tablet SUBLINGUAL Q5MIN PRN Chest Pain Oxybutynin Chloride 15 mg 02/16/25 21:00 02/18/25 20:32 Oxybutynin Chloride Xl 5 Mg Tab.Er.24 PO 15 mg HS [facility] Administration Pantoprazole Sodium 40 mg 02/16/25 11:30 02/19/25 08:37 Pantoprazole 40 Mg Tablet PO 40 mg Q12HR AIMEE Administration Paroxetine HCl 20 mg 02/17/25 09:00 02/19/25 08:37 Paroxetine 20 Mg Tablet PO 20 mg QAM AIMEE Administration Polyethylene Glycol 17 gm 02/16/25 10:43 Polyethylene Glycol 3350 17 Gm Powd.Pack PO QAM PRN Constipation Rosuvastatin Calcium 40 mg 02/16/25 11:30 02/19/25 08:36 Rosuvastatin 20 Mg Tablet PO 40 mg DAILY [facility] Administration Tamsulosin HCl 0.4 mg 02/16/25 21:00 02/18/25 20:33 Tamsulosin Hcl 0.4 Mg Capsule PO 0.4 mg HS [facility] Administration Ticagrelor 90 mg 02/16/25 11:30 02/19/25 08:37 Ticagrelor 90 Mg Tablet PO 90 mg Q12HR AIMEE Administration Tramadol HCl 50 mg 02/19/25 09:14 02/19/25 09:29 Tramadol Hcl (*Crx) 50 Mg Tablet PO 50 mg Q6H PRN Administration Pain Rated 4-6 Vitamin D 2,000 units 02/16/25 11:30 02/19/25 08:36 Cholecalciferol 1,000 Units Tablet PO 2,000 units DAILY AIMEE Administration Radiology Results: ITS Impressions Foot X-Ray 02/15/25 20:31 IMPRESSION: Unremarkable radiographic evaluation of the left foot, as detailed Tibia/Fibula X-Ray 02/15/25 20:32 IMPRESSION: 3 cm soft tissue density within the lower third of the anterior lower extremity, as detailed above. No acute fracture. Chest X-Ray 02/16/25 12:39 Impression: Clear lungs. Postsurgical change and hiatal hernia, stable from prior exam. Labs Labs: Laboratory Results - last 24 hr 02/19/25 05:39 WBC 8.0 RBC 3.76 L Hgb 11.6 L Hct 36.2 L MCV 96.3 MCH 30.9 MCHC 32.0 RDW 16.7 H Plt Count 216 MPV 10.6 H Immature Gran % (Auto) 0.5 Neut % (Auto) 58.8 Lymph % (Auto) 22.1 [place] % (Auto) 11.3 H Eos % (Auto) 6.7 H Baso % (Auto) 0.6 Lymph # (Auto) 1.76 [place] # (Auto) 0.9 H Eos # (Auto) 0.5 H Baso # (Auto) 0.1 Abs Immat Gran (auto) 0.04 H Absolute Neuts (auto) 4.7 Absolute Nucleated RBC 0.000 Nucleated RBC % 0.0 Sodium 138 Potassium 4.1 Chloride 108 H Carbon Dioxide 23 Anion Gap 7 BUN 22 H Creatinine 1.36 H Estim Creat Clear Calc 40 Estimated GFR 50 L Glucose 110 Calcium 8.4 Magnesium 2.2 Total Bilirubin 0.5 AST 52 ALT 34 Alkaline Phosphatase 107 Total Protein 6.0 L Albumin 3.0 L Quality VTE Prophylaxis VTE prophylaxis: pharmacologic ordered
[2025-02-19 12:59] VITALS: BP 106/62; PULSE 58; RESP 18; TEMP 36.4; O2SAT 98
[2025-02-19] MEDS: DOXYCYCLINE HYCLATE 100 MG TABLET PO ×2 (13:04→21:14)
[2025-02-19] MEDS: AMOXICILLIN 500 MG CAPSULE PO ×2 (13:04→21:13)
[2025-02-19 13:49] VITALS: BP 106/50; PULSE 54; RESP 16; TEMP 36.2; O2SAT 100
[2025-02-19] MEDS: DONEPEZIL HCL 10 MG TABLET PO (21:12)
[2025-02-19] MEDS: MELATONIN 5 MG TABLET 10 MG PO (21:13)
[2025-02-19] MEDS: oxyBUTYnin CHLORIDE XL 5 MG TAB.ER.24 15 MG PO (21:13)
[2025-02-19] MEDS: METOPROLOL TARTRATE 12.5 MG TABLET PO (21:13)
[2025-02-19] MEDS: TAMSULOSIN HCL 0.4 MG CAPSULE PO (21:14)
[2025-02-19 21:22] VITALS: BP 117/62; PULSE 57; RESP 20; TEMP 36.2; O2SAT 99
[2025-02-20] VITALS (12 sets, daily range): BP systolic 100–135; BP diastolic 50–71; PULSE 52–58; RESP 10–20; TEMP 36.1–36.8; O2SAT 97–100
[2025-02-20] MEDS: LEVOTHYROXINE SODIUM 150 MCG TABLET PO (05:36)
[2025-02-20] MEDS: AMOXICILLIN 500 MG CAPSULE PO ×3 (05:36→21:12)
[2025-02-20 05:37] LABS: Basophils Percent Auto 0.4 % (0.2-1.2); Eosinophils Absolute Auto 0.5 K/mm3 (0-0.3); Eosinophils Percent Auto 7.4 % (0-4.4); Hematocrit 35.3 % (42.0-52.0); Hemoglobin 11.4 g/dL (14.0-18.0); Immature Granulocyte Absolute 0.02 K/mm3 (0.00-0.031); Immature Granulocyte Percent A 0.3 % (0-0.5); Lymphocytes Absolute Auto 1.65 K/mm3 (0.9-3.2); Lymphocytes Percent Auto 22.9 % (18.3-44.2); Mean Corpuscular HGB Conc 32.3 g/dl (32-36); Mean Corpuscular Volume 95.9 fl (80-100); Mean Platelet Volume 10.5 fl (7.4-10.4); Monocytes Absolute Auto 0.9 K/mm3 (0.1-0.6); Monocytes Percent Auto 12.9 % (2.6-8.5); Neutrophils Percent Auto 56.1 % (45.5-73.1); Platelet Count Result 220 k/mm3 (150-375); Red Blood Count 3.68 M/mm3 (4.6-6.20); Red Cell Distribution Width 16.6 % (11.5-14.5); White Blood Count 7.2 K/mm3 (4.5-10.0)
[2025-02-20] MEDS: traMADol HCL (*CRX) 50 MG TABLET PO ×3 (05:37→21:11)
[2025-02-20 06:00] LABS: Alanine Aminotransferase 36 U/L (6-50); Alkaline Phosphatase 109 U/L (38-126); Anion Gap 3 mmol/L (4-12); Aspartate Amino Transferase 51 U/L (17-59); Bilirubin,Total 0.6 mg/dL (0.2-1.3); Blood Urea Nitrogen 20 mg/dL (9-20); Calcium 8.4 mg/dL (8.4-10.2); Carbon Dioxide 25 mmol/L (22-30); Chloride 109 mmol/L (98-107); Estimated CRCL calculation 39 ml/min; Estimated Glomerular Filt Rate 49; Glucose 104 mg/dL (65-110); Magnesium 2.2 mg/dL (1.6-2.3); Sodium 137 mmol/L (137-145)
--- NOTE | 2025-02-20 09:52 | PCPTNOTE ---
Attempted to see patient for PT, however patient refused due to left leg pain and PER patient: MD reported he should not be working with therapy. RN aware.
--- NOTE | 2025-02-20 11:40 | P.PNIM_ITS ---
Progress Note: A&P Assessment and Plan (1) Falls frequently: Code(s): R29.6 - Repeated falls Status: Acute Assessment and Plan: * PT/OT (2) Weakness: Code(s): R53.1 - Weakness Status: Acute Assessment and Plan: * PT/OT (3) JULIETA (acute kidney injury): Code(s): N17.9 - Acute kidney failure, unspecified Status: Acute Assessment and Plan: * Creatinine 1.62 on arrival, currently 1.39. * Continue to trend. * Avoid NSAIDS. (4) Cellulitis of left lower leg: Code(s): L03.116 - Cellulitis of left lower limb Status: Acute Assessment and Plan: * Amoxicillin 500 mg PO q8 and Doxycycline 100 mg PO q12. * Monitor site. * Afebrile. WBC 7.2 * Wound culture pending. * Wound consult placed, no recommendations at this time. * LLE CT with contrast showed: IMPRESSION: 1. 5.5 x 2.0 x 1.4 cm lenticular lesion in the subcutaneous fat at the anterior mid to distal left lower leg most likely representing complex fluid and either a hematoma or abscess in the appropriate clinical setting. * ASA placed on hold. * Surgery consult, appreciate recommendations. * NPO for I&D of LLE this afternoon. * Pain regimen. (5) UTI (urinary tract infection): Qualifiers: Hematuria presence: without hematuria Urinary tract infection type: acute cystitis Qualified Code(s): N30.00 - Acute cystitis without hematuria Code(s): N39.0 - Urinary tract infection, site not specified Status: Acute Assessment and Plan: * Urine grew Enterococcus Species. * Amoxicillin 500 mg PO q 8. * Afebrile, WBC 8.0. (6) Shoulder pain, bilateral: Code(s): M25.511 - Pain in right shoulder; M25.512 - Pain in left shoulder Status: Acute Assessment and Plan: * Acetaminophen 650 mg PO q 6 PRN. (7) Hypothyroidism: Code(s): E03.9 - Hypothyroidism, unspecified Status: Acute Assessment and Plan: * TSH <0.015, Free T4 2.49. * Decreased Levothyroxine to 150 mcg PO daily. (8) Insomnia: Code(s): G47.00 - Insomnia, unspecified Status: Acute Assessment and Plan: * Melatonin 10 mg PO QHS. Subjective Date/time seen: 02/20/25 11:40 Interval history: Patient reports pain in left lower leg is a 2 , frequent, and aching. Patient denies chest pain, palpitations, headache, dizziness, nausea, or vomiting. Patient is NPO for an I&D of left lower leg this afternoon. Review of Systems Review of Systems: All systems reviewed & are unremarkable except as noted in HPI and below Exam Const: General: no acute distress and uncomfortable Resp: Effort & Inspection: normal respiratory effort Auscultation: clear to auscultation bilaterally Cardio: Rate: regular rate Rhythm: regular rhythm GI: GI Palp: Yes Soft to palpation Auscultation: normal bowel sounds Neuro: Speech: normal speech Extrem: Other: 1+ edema to LLE. There is an approximate ly 3 cm hemorrhagic bulla noted the lateral aspect foreleg with a small surrounding raised area that is either an abscess or hematoma. Psych: Mental Status: mental status grossly normal Affect: normal affect Objective Data Vital Signs Vital Signs: Vital Signs - 24 hr 02/19/25 12:59 02/19/25 13:49 02/19/25 20:00 Temperature 97.5 F L 97.2 F L Pulse Rate 58 L 54 L Respiratory Rate 18 16 Blood Pressure 106/62 106/50 L Pulse Oximetry 98 100 Oxygen Delivery Room Air 02/19/25 21:22 02/20/25 06:00 02/20/25 08:00 Temperature 97.1 F L 98.3 F Pulse Rate 57 L 53 L 53 L Respiratory Rate 20 20 20 Blood Pressure 117/62 100/60 Pulse Oximetry 99 100 100 Oxygen Delivery Room Air Intake/Output Intake/Output: Intake & Output 02/17/25 02/18/25 02/19/25 02/20/25 23:59 23:59 23:59 23:59 Intake Total 1170 1550 1450 Output Total 2950 2300 1750 1400 Balance -1780 -750 -300 -1400 Meds/Results Medications: Active Medications Generic Name Dose Route Start Last Admin Trade Name Freq PRN Reason Stop Dose Admin Acetaminophen 650 mg 02/16/25 03:09 02/18/25 17:08 Acetaminophen 325 Mg Tablet PO 650 mg Q6H PRN Administration Mild Pain (1-3) or Fever Amoxicillin 500 mg 02/19/25 13:00 02/20/25 05:36 Amoxicillin 500 Mg Capsule PO 500 mg Q8HR [facility] Administration Artificial Tears 1 drop 02/18/25 10:10 02/18/25 12:06 Artificial Tears Ophth Soln 15 Ml Bottle EACH EYE 1 drop QID PRN Administration Dry Eye(s) Aspirin 81 mg 02/16/25 11:30 02/19/25 08:37 Aspirin 81 Mg Chewable Tablet PO 81 mg DAILY [facility] Administration Donepezil HCl 10 mg 02/16/25 21:00 02/19/25 21:12 Donepezil Hcl 10 Mg Tablet PO 10 mg QHS [facility] Administration Doxycycline Hyclate 100 mg 02/19/25 10:00 02/19/25 21:14 Doxycycline Hyclate 100 Mg Tablet PO 100 mg Q12HR [facility] Administration Enoxaparin Sodium 40 mg 02/17/25 09:00 02/20/25 09:47 Enoxaparin 40 Mg/0.4 Ml Syringe SUB-Q Not Given DAILY [facility] Ferrous Sulfate 325 mg 02/16/25 17:00 02/20/25 09:47 Ferrous Sulfate [address] PO Not Given BIDWM [facility] Gabapentin 600 mg 02/16/25 13:00 02/20/25 11:25 Gabapentin 300 Mg Capsule PO Not Given TID [facility] Guaifenesin 600 mg 02/16/25 10:40 02/20/25 09:48 Guaifenesin 12 Hr 600 Mg Tabcr PO 02/23/25 10:39 Not Given Q12HR [facility] Guaifenesin/Dextromethorphan 10 ml 02/17/25 13:48 02/19/25 21:12 Guaifenesin/Dextromethorphan 10 Ml Udc PO 10 ml Q4H PRN Administration Cough Levothyroxine Sodium 150 mcg 02/17/25 06:30 02/20/25 05:36 Levothyroxine Sodium 150 Mcg Tablet PO 150 mcg DAILY@0630 [facility] Administration Loratadine 10 mg 02/16/25 09:00 02/20/25 09:53 Loratadine 10 Mg Tablet PO Not Given DAILY [facility] Losartan Potassium 12.5 mg 02/16/25 11:30 02/19/25 13:02 Losartan Potassium 12.5 Mg Tablet PO Not Given DAILY [facility] Melatonin 10 mg 02/18/25 21:00 02/19/25 21:13 Melatonin 5 Mg Tablet PO 10 mg HS [facility] Administration Metoprolol Tartrate 12.5 mg 02/16/25 11:30 02/19/25 21:13 Metoprolol Tartrate 12.5 Mg Tablet PO 12.5 mg Q12HR [facility] Administration Mirabegron 25 mg 02/16/25 11:30 02/19/25 08:36 Mirabegron 25 Mg Er Tablet PO 25 mg DAILY [facility] Administration Nitroglycerin 0.4 mg 02/16/25 10:38 Nitroglycerin Sl 0.4 Mg Tablet SUBLINGUAL Q5MIN PRN Chest Pain Oxybutynin Chloride 15 mg 02/16/25 21:00 02/19/25 21:13 Oxybutynin Chloride Xl 5 Mg Tab.Er.24 PO 15 mg HS [facility] Administration Pantoprazole Sodium 40 mg 02/16/25 11:30 02/20/25 09:54 Pantoprazole 40 Mg Tablet PO Not Given Q12HR [facility] Paroxetine HCl 20 mg 02/17/25 09:00 02/19/25 08:37 Paroxetine 20 Mg Tablet PO 20 mg QAM [facility] Administration Polyethylene Glycol 17 gm 02/16/25 10:43 Polyethylene Glycol 3350 17 Gm Powd.Pack PO QAM PRN Constipation Rosuvastatin Calcium 40 mg 02/16/25 11:30 02/19/25 08:36 Rosuvastatin 20 Mg Tablet PO 40 mg DAILY [facility] Administration Tamsulosin HCl 0.4 mg 02/16/25 21:00 02/19/25 21:14 Tamsulosin Hcl 0.4 Mg Capsule PO 0.4 mg HS [facility] Administration Ticagrelor 90 mg 02/16/25 11:30 02/20/25 11:23 Ticagrelor 90 Mg Tablet PO Not Given Q12HR [facility] Tramadol HCl 50 mg 02/19/25 09:14 02/20/25 05:37 Tramadol Hcl (*Crx) 50 Mg Tablet PO 50 mg Q6H PRN Administration Pain Rated 4-6 Vitamin D 2,000 units 02/16/25 11:30 02/20/25 09:47 Cholecalciferol 1,000 Units Tablet PO Not Given DAILY [facility] Radiology Results: ITS Impressions Foot X-Ray 02/15/25 20:31 IMPRESSION: Unremarkable radiographic evaluation of the left foot, as detailed Tibia/Fibula X-Ray 05/08/25 20:32 IMPRESSION: 3 cm soft tissue density within the lower third of the anterior lower extremity, as detailed above. No acute fracture. Chest X-Ray 02/16/25 12:39 Impression: Clear lungs. Postsurgical change and hiatal hernia, stable from prior exam. Lower Extremity CT 02/19/25 15:25 IMPRESSION: 1. 5.5 x 2.0 x 1.4 cm lenticular lesion in the subcutaneous fat at the anterior mid to distal left lower leg most likely representing complex fluid and either a hematoma or abscess in the appropriate clinical setting. Labs Labs: Laboratory Results - last 24 hr 02/20/25 05:16 WBC 7.2 RBC 3.68 L Hgb 11.4 L Hct 35.3 L MCV 95.9 MCH 31.0 MCHC 32.3 RDW 16.6 H Plt Count 220 MPV 10.5 H Immature Gran % (Auto) 0.3 Neut % (Auto) 56.1 Lymph % (Auto) 22.9 [place] % (Auto) 12.9 H Eos % (Auto) 7.4 H Baso % (Auto) 0.4 Lymph # (Auto) 1.65 [place] # (Auto) 0.9 H Eos # (Auto) 0.5 H Baso # (Auto) 0.0 Abs Immat Gran (auto) 0.02 Absolute Neuts (auto) 4.0 Absolute Nucleated RBC 0.000 Nucleated RBC % 0.0 Sodium 137 Potassium 4.0 Chloride 109 H Carbon Dioxide 25 Anion Gap 3 L BUN 20 Creatinine 1.39 H Estim Creat Clear Calc 39 Estimated GFR 49 L Glucose 104 Calcium 8.4 Magnesium 2.2 Total Bilirubin 0.6 AST 51 ALT 36 Alkaline Phosphatase 109 Total Protein 6.0 L Albumin 3.0 L Quality VTE Prophylaxis VTE prophylaxis: pharmacologic ordered
[2025-02-20] MEDS: LOSARTAN POTASSIUM 12.5 MG TABLET PO (12:29)
[2025-02-20] MEDS: ROSUVASTATIN 20 MG TABLET 40 MG PO (12:29)
[2025-02-20] MEDS: GABAPENTIN 300 MG CAPSULE 600 MG PO (12:29)
[2025-02-20] MEDS: DOXYCYCLINE HYCLATE 100 MG TABLET PO ×2 (12:29→21:11)
[2025-02-20] MEDS: PARoxetine 20 MG TABLET PO (12:29)
[2025-02-20] MEDS: MIRABEGRON 25 MG ER TABLET PO (12:30)
--- NOTE | 2025-02-20 12:31 | P.CONGS_ITS ---
Assessment and Plan Assessment and plan (1) Hematoma of left lower leg: Code(s): S80.12XA - Contusion of left lower leg, initial encounter Status: Acute Assessment and Plan: Patient was admitted for cellulitis of the left lower extremity. He has a hematoma on the anterior lower leg with a black eschar overlying the hematoma. This occurred after a fall about 2 weeks ago. We would recommend proceeding with incision and drainage of left lower leg hematoma and possible wound vac placement in the OR by Dr. Syed. Description of the procedure, risks, benefits, alternatives, and expected recovery/wound care were discussed. We will proceed later today. (2) Falls frequently: Code(s): R29.6 - Repeated falls Status: Acute (3) JULIETA (acute kidney injury): Code(s): N17.9 - Acute kidney failure, unspecified Status: Acute (4) CAD (coronary artery disease): Code(s): I25.10 - Atherosclerotic heart disease of [place] coronary artery without angina pectoris Status: Acute (5) Aortic stenosis: Code(s): I35.0 - Nonrheumatic aortic (valve) stenosis Status: Acute (6) UTI (urinary tract infection): Qualifiers: Hematuria presence: without hematuria Urinary tract infection type: a cute cystitis Qualified Code(s): N30.00 - Acute cystitis without hematuria Code(s): N39.0 - Urinary tract infection, site not specified Status: Acute Plan I have discussed the patient's case and plan of care with Dr. Syed. History of Present Illness Consult details Consult date: 02/20/25 Reason for consult: other (Left lower extremity hematoma) Requesting physician: Latisha Whitten, [employer] Narrative: This is an 79-year-old male with a history of coronary artery disease on Brilinta, previous stroke about a year ago, dementia, mild aortic stenosis, AAA, and other medical problems, who we have been asked to see in surgical consultation for a left lower leg hematoma. The patient has had frequent falls recently at home. He reportedly fell at cardiac rehab 2 weeks ago over the top of his Rollator walker. He developed a blood blister on his left anterior lower leg after falling. With area became more swollen and painful, and he eventually decided come into the ED for evaluation on 02/15/2025. He was admitted for left lower extremity cellulitis, UTI, JULIETA. White blood cell count has been normal during this admission. He had plain films of the left lower extremity that showed no acute fracture. Yesterday, he had a CT scan of the left lower extremity that showed a 5.5 x 2.0 x 1.4 cm lesion in the subcutaneous fat at the anterior mid to distal left lower leg, most likely representing complex fluid and either a hematoma or abscess in the appropriate clinical setting. Our service was consulted. Review of Systems 2 Review of Systems: All systems reviewed & are unremarkable except as noted in HPI and below PMFSH Past Medical History Medical History Overactive bladder Aneurysm of infrarenal abdominal aorta Dyslipidemia 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 Seizure x2 in 1997 Benign prostatic hyperplasia Esophageal stricture Gastroesophageal reflux Hypothyroidism Esophageal diverticulum, acquired Colon polyp Arthritis Diverticulosis Anemia Diverticulitis Myasthenia gravis patient denies Surgical History Surgical History History of arthroplasty of right knee History of Noemy fundoplication History of thyroidectomy Status post dilatation of esophageal stricture Family History Family History Mother , age 85 Acute myocardial infarction Hypertension Heart disease Father , age 70 Acute myocardial infarction Chronic obstructive pulmonary disease History of blood clots Hypertension Heart disease Sibling Acute myocardial infarction Hypertension Heart disease Other Heart disease Social History Social History Social History: Surrogate medical decision maker: Alon Gtz, spouse. Code status: Full code. Smoking packs per day: 1 Smoking cigarettes per day: 20.0 Years smoked: 4 Smoking pack-years: 4.00 Smoking status: Never smoker Alcohol intake: current Drinks per week: 1 Substance use: never Substance use type: does not use Do You Feel Safe in your Home?: Yes Lack of Transportation: No Lack of Food: Never True Current Housing: I Have Housing Concerned About Future Housing: No Difficulty Paying Gas/Electric Bills: No Difficulty Paying for Meds: No Currently Unemployed: No Education: Bachelor's Degree Difficulty w/ Childcare or Family Care: No Living arrangements: with family Additional living arrangements comments: Lives in [place] with his spouse. They have 3 children. 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 Spiritual care concerns: No Meds Home Medications and Allergies Home Medications Medication Instructions Recorded Confirmed Type furosemide 20 mg tablet (Lasix) 20 mg PO DAILY 08/13/23 02/16/25 History gabapentin 100 mg capsule 600 mg PO TID 08/13/23 02/16/25 History tizanidine 2 mg tablet 2 mg PO Q8H PRN Muscle Pain 08/13/23 02/16/25 History melatonin 10 mg tablet 10 mg PO HS PRN Sleep 10/10/23 02/16/25 History oxybutynin chloride 15 mg 15 mg PO HS 10/10/23 02/16/25 History tablet,extended release 24 hr cholecalciferol (vitamin D3) 50 50 mcg PO DAILY 11/09/23 02/16/25 History mcg (2,000 unit) capsule donepezil 10 mg tablet 10 mg PO QHS 11/09/23 02/16/25 History aspirin 81 mg chewable tablet 81 mg PO DAILY 01/26/24 02/16/25 History cetirizine 10 mg tablet 10 mg PO DAILY 01/26/24 02/16/25 History clobetasol 0.05 % topical ointment 1 applic topical BID PRN rash 01/26/24 02/16/25 History rosuvastatin 40 mg tablet 40 mg PO DAILY 01/26/24 02/16/25 History spironolactone 25 mg tablet 25 mg PO DAILY 01/26/24 02/16/25 History pantoprazole 40 mg tablet,delayed 40 mg PO BID #60 tabs 02/02/24 02/16/25 Rx release mometasone 0.1 % topical ointment 1 applic topical DAILY PRN itching 08/26/24 02/16/25 Rx #45 grams ferrous sulfate 325 mg (65 mg 325 mg PO BID 01/06/25 02/16/25 History iron) tablet (FeroSul) mirabegron 25 mg tablet,extended 25 mg PO DAILY 01/06/25 02/16/25 History release 24 hr (Myrbetriq) tamsulosin 0.4 mg capsule 0.4 mg PO HS 01/06/25 02/16/25 History levothyroxine 175 mcg capsule 175 mcg PO DAILY #30 caps 01/09/25 02/16/25 Rx losartan 25 mg tablet 12.5 mg (1/2 x 25 mg) PO DAILY #30 01/09/25 02/16/25 Rx tabs metoprolol tartrate 25 mg tablet 12.5 mg (1/2 x 25 mg) PO Q12H #30 01/09/25 02/16/25 Rx tabs nitroglycerin 0.4 mg sublingual 0.4 mg sublingual Q5MIN PRN Chest 01/09/25 02/16/25 Rx tablet (Nitrostat) Pain #20 tabs ticagrelor 90 mg tablet (Brilinta) 90 mg PO Q12HR 30 days #60 tabs 02/06/25 02/16/25 Rx dapagliflozin propanediol 5 mg 5 mg PO DAILY 02/16/25 02/16/25 History tablet (Farxiga) paroxetine HCl 20 mg tablet 20 mg PO QAM 02/16/25 02/16/25 History Allergies Allergy/AdvReac Type Severity Reaction Status Date / Time No Known Allergies Allergy Verified 01/06/25 13:47 Vital Signs Vital Signs - 24 hr 02/19/25 12:59 02/19/25 13:49 02/19/25 20:00 Temperature 97.5 F L 97.2 F L Pulse Rate 58 L 54 L Respiratory Rate 18 16 Blood Pressure 106/62 106/50 L Pulse Oximetry 98 100 Oxygen Delivery Room Air 02/19/25 21:22 02/20/25 06:00 02/20/25 08:00 Temperature 97.1 F L 98.3 F Pulse Rate 57 L 53 L 53 L Respiratory Rate 20 20 20 Blood Pressure 117/62 100/60 Pulse Oximetry 99 100 100 Oxygen Delivery Room Air Exam 2 Const: General: comfortable and no acute distress Nutritional Appearance: a verage body habitus Orientation/consciousness: confusion HENMT: Head: normocephalic and atraumatic Ears: hearing grossly normal bilaterally Mouth: Yes moist mucous membranes Eyes: General: appearance normal, both eyes and all related structures P upils: Equal, round and reactive pupils present Neck: Neck: normal visual inspection and full ROM Resp: Effort & Inspection: no respiratory distress Auscultation: clear to auscultation bilaterally Cardio: Rate: regular rate Rhythm: regular rhythm Peripheral pulses: P eripheral pulses 2+ throughout GI: Inspection: non-distended GI Palp: Yes Soft to palpation, No Tenderness to palpation present (GI), No Guarding due to palpation present (GI) and No Rebound tenderness present Auscultation: normal bowel sounds Skin: General skin exam: normal color Neuro: General: no focal motor deficits and other (left sided weakness from previous stroke) Speech: normal speech Extrem: Other: Left anterior lower leg hematoma with fluctuance and a 3-4 cm circular black eschar over the hematoma, no erythema extending onto the leg Psych: Mental Status: mental status grossly normal Attitude: cooperative Insight: Fair insight present (Psych) Judgement: Fair judgement present (Psych) Results Labs 02/20/25 05:16 02/20/25 05:16 Labs: Abnormal lab results 02/20/25 Range/Units 05:16 RBC 3.68 L (4.6-6.20) M/mm3 Hgb 11.4 L (14.0-18.0) g/dL Hct 35.3 L (42.0-52.0) % RDW 16.6 H (11.5-14.5) % MPV 10.5 H (7.4-10.4) fl [place] % (Auto) 12.9 H (2.6-8.5) % Eos % (Auto) 7.4 H (0-4.4) % [place] # (Auto) 0.9 H (0.1-0.6) K/mm3 Eos # (Auto) 0.5 H (0-0.3) K/mm3 Chloride 109 H (98-107) mmol/L Anion Gap 3 L (4-12) mmol/L Creatinine 1.39 H (0.7-1.3) mg/dL Estimated GFR 49 L (59 - ) Total Protein 6.0 L (6.3-8.2) g/dL Albumin 3.0 L (3.5-5.1) g/dL Diabetes panel 02/20/25 Range/Units 05:16 Sodium 137 (137-145) mmol/L Potassium 4.0 (3.4-5.0) mmol/L Chloride 109 H (98-107) mmol/L Carbon Dioxide 25 (22-30) mmol/L BUN 20 (9-20) mg/dL Creatinine 1.39 H (0.7-1.3) mg/dL Glucose 104 (65-110) mg/dL Calcium 8.4 (8.4-10.2) mg/dL AST 51 (17-59) U/L ALT 36 (6-50) U/L Alkaline Phosphatase 109 (38-126) U/L Total Protein 6.0 L (6.3-8.2) g/dL Albumin 3.0 L (3.5-5.1) g/dL Calcium panel 02/20/25 Range/Units 05:16 Calcium 8.4 (8.4-10.2) mg/dL Albumin 3.0 L (3.5-5.1) g/dL Pituitary panel 02/20/25 Range/Units 05:16 Sodium 137 (137-145) mmol/L Potassium 4.0 (3.4-5.0) mmol/L Chloride 109 H (98-107) mmol/L Carbon Dioxide 25 (22-30) mmol/L BUN 20 (9-20) mg/dL Creatinine 1.39 H (0.7-1.3) mg/dL Glucose 104 (65-110) mg/dL Calcium 8.4 (8.4-10.2) mg/dL Adrenal panel 02/20/25 Range/Units 05:16 Sodium 137 (137-145) mmol/L Potassium 4.0 (3.4-5.0) mmol/L Chloride 109 H (98-107) mmol/L Carbon Dioxide 25 (22-30) mmol/L BUN 20 (9-20) mg/dL Creatinine 1.39 H (0.7-1.3) mg/dL Glucose 104 (65-110) mg/dL Calcium 8.4 (8.4-10.2) mg/dL Total Bilirubin 0.6 (0.2-1.3) mg/dL AST 51 (17-59) U/L ALT 36 (6-50) U/L Alkaline Phosphatase 109 (38-126) U/L Total Protein 6.0 L (6.3-8.2) g/dL Albumin 3.0 L (3.5-5.1) g/dL All other labs normal. Imaging Additional studies: ITS Impressions Foot X-Ray 02/15/25 20:31 IMPRESSION: Unremarkable radiographic evaluation of the left foot, as detailed Tibia/Fibula X-Ray 02/15/25 20:32 IMPRESSION: 3 cm soft tissue density within the lower third of the anterior lower extremity, as detailed above. No acute fracture. Chest X-Ray 02/16/25 12:39 Impression: Clear lungs. Postsurgical change and hiatal hernia, stable from prior exam. Lower Extremity CT 02/19/25 15:25 IMPRESSION: 1. 5.5 x 2.0 x 1.4 cm lenticular lesion in the subcutaneous fat at the anterior mid to distal left lower leg most likely representing complex fluid and either a hematoma or abscess in the appropriate clinical setting.
--- NOTE | 2025-02-20 15:35 | WPDHPUPDATE1 ---
History and Physical Update Update Date/Time: 02/20/25 15:35 History and Physical has been reviewed, including an updated exam of the patient. There are NO changes in the patient's condition. Risks, benefits, and alternatives have been discussed and questions answered. Patient agrees to proceed with procedure.
--- NOTE | 2025-02-20 16:24 | P.PNAN_ITS ---
Anes - Initial Pre Proc Eval Procedure: Operation Date: 02/20/25 17:15 Proposed Procedures p Incision and Drainage Left Calf Hematoma, Possible Wound Vac Placement - Aravind Syed MD Date/Time: 02/20/25 16:24 Surgeon: Silvia Fowler DO Pre Op Diagnosis: JULIETA, UTI, Cellulitis Patient Data Age: 79 Gender: M Height: 1.78 m Weight: 84.4 kg Last Vital Signs Temp 36.6 C 02/20/25 16:05 Pulse 53 L 02/20/25 16:05 Resp 14 02/20/25 16:05 BP 125/71 02/20/25 16:05 Pulse Ox 99 02/20/25 16:05 O2 Del Method Room Air 02/20/25 16:05 Allergies Allergy/AdvReac Type Severity Reaction Status Date / Time No Known Allergies Allergy Verified 01/06/25 13:47 Home Medications Medication Instructions Recorded Confirmed Type furosemide 20 mg tablet (Lasix) 20 mg PO DAILY 08/13/23 02/16/25 History gabapentin 100 mg capsule 600 mg PO TID 08/13/23 02/16/25 History tizanidine 2 mg tablet 2 mg PO Q8H PRN Muscle Pain 08/13/23 02/16/25 History melatonin 10 mg tablet 10 mg PO HS PRN Sleep 10/10/23 02/16/25 History oxybutynin chloride 15 mg 15 mg PO HS 10/10/23 02/16/25 History tablet,extended release 24 hr cholecalciferol (vitamin D3) 50 50 mcg PO DAILY 11/09/23 02/16/25 History mcg (2,000 unit) capsule donepezil 10 mg tablet 10 mg PO QHS 11/09/23 02/16/25 History aspirin 81 mg chewable tablet 81 mg PO DAILY 01/26/24 02/16/25 History cetirizine 10 mg tablet 10 mg PO DAILY 01/26/24 02/16/25 History clobetasol 0.05 % topical ointment 1 applic topical BID PRN rash 01/26/24 02/16/25 History rosuvastatin 40 mg tablet 40 mg PO DAILY 01/26/24 02/16/25 History spironolactone 25 mg tablet 25 mg PO DAILY 01/26/24 02/16/25 History pantoprazole 40 mg tablet,delayed 40 mg PO BID #60 tabs 04/24/24 05/09/25 Rx release mometasone 0.1 % topical ointment 1 applic topical DAILY PRN itching 08/26/24 02/16/25 Rx #45 grams ferrous sulfate 325 mg (65 mg 325 mg PO BID 01/06/25 02/16/25 History iron) tablet (FeroSul) mirabegron 25 mg tablet,extended 25 mg PO DAILY 01/06/25 02/16/25 History release 24 hr (Myrbetriq) tamsulosin 0.4 mg capsule 0.4 mg PO HS 01/06/25 02/16/25 History levothyroxine 175 mcg capsule 175 mcg PO DAILY #30 caps 01/09/25 02/16/25 Rx losartan 25 mg tablet 12.5 mg (1/2 x 25 mg) PO DAILY #30 01/09/25 02/16/25 Rx tabs metoprolol tartrate 25 mg tablet 12.5 mg (1/2 x 25 mg) PO Q12H #30 01/09/25 02/16/25 Rx tabs nitroglycerin 0.4 mg sublingual 0.4 mg sublingual Q5MIN PRN Chest 01/09/25 02/16/25 Rx tablet (Nitrostat) Pain #20 tabs ticagrelor 90 mg tablet (Brilinta) 90 mg PO Q12HR 30 days #60 tabs 02/06/25 0 02/16/25 Rx dapagliflozin propanediol 5 mg 5 mg PO DAILY 02/16/25 02/16/25 History tablet (Farxiga) paroxetine HCl 20 mg tablet 20 mg PO QAM 02/16/25 02/16/25 History Laboratory Tests 02/20/25 05:16 WBC 7.2 K/mm3 (4.5-10.0) RBC 3.68 L M/mm3 (4.6-6.20) Hgb 11.4 L g/dL (14.0-18.0) Hct 35.3 L % (42.0-52.0) MCV 95.9 fl (80-100) MCH 31.0 pg (26-34) MCHC 32.3 g/dl (32-36) RDW 16.6 H % (11.5-14.5) Plt Count 220 k/mm3 (150-375) MPV 10.5 H fl (7.4-10.4) Immature Gran % (Auto) 0.3 % (0-0.5) Neut % (Auto) 56.1 % (45.5-73.1) Lymph % (Auto) 22.9 % (18.3-44.2) [place] % (Auto) 12.9 H % (2.6-8.5) Eos % (Auto) 7.4 H % (0-4.4) Baso % (Auto) 0.4 % (0.2-1.2) Lymph # (Auto) 1.65 K/mm3 (0.9-3.2) [place] # (Auto) 0.9 H K/mm3 (0.1-0.6) Eos # (Auto) 0.5 H K/mm3 (0-0.3) Baso # (Auto) 0.0 K/mm3 (0.0-0.1) Abs Immat Gran (auto) 0.02 K/mm3 (0.00-0.031) Absolute Neuts (auto) 4.0 K/mm3 (1.3-6.7) Absolute Nucleated RBC 0.000 K/mm3 (0.0-0.012) Nucleated RBC % 0.0 % (0.0-0.2) Sodium 137 mmol/L (137-145) Potassium 4.0 mmol/L (3.4-5.0) Chloride 109 H mmol/L (98-107) Carbon Dioxide 25 mmol/L (22-30) Anion Gap 3 L mmol/L (4-12) BUN 20 mg/dL (9-20) Creatinine 1.39 H mg/dL (0.7-1.3) Estim Creat Clear Calc 39 ml/min Estimated GFR 49 L (59 - ) Glucose 104 mg/dL (65-110) Calcium 8.4 mg/dL (8.4-10.2) Magnesium 2.2 mg/dL (1.6-2.3) Total Bilirubin 0.6 mg/dL (0.2-1.3) AST 51 U/L (17-59) ALT 36 U/L (6-50) Alkaline Phosphatase 109 U/L (38-126) Total Protein 6.0 L g/dL (6.3-8.2) Albumin 3.0 L g/dL (3.5-5.1) Patient hx anesthesia problems: none Family hx anesthesia problems: none Results Review: All pre-operative results and documents have been reviewed as part of the pre- operative evaluation. 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 Seizure x2 in 1997 Benign prostatic hyperplasia Esophageal stricture Gastroesophageal reflux Hypothyroidism Esophageal diverticulum, acquired Colon polyp Arthritis Diverticulosis Anemia Diverticulitis Myasthenia gravis patient denies Surgical History Surgical History History of arthroplasty of right knee History of Noemy fundoplication History of thyroidectomy Status post dilatation of esophageal stricture Family History Family History Mother , age 85 Acute myocardial infarction Hypertension Heart disease Father , age 70 Acute myocardial infarction Chronic obstructive pulmonary disease History of blood clots Hypertension Heart disease Sibling Acute myocardial infarction Hypertension Heart disease Other Heart disease Social History Social History Social History: Surrogate medical decision maker: Alon Gtz, spouse. Code status: Full code. Smoking packs per day: 1 Smoking cigarettes per day: 20.0 Years smoked: 4 Smoking pack-years: 4.00 Smoking status: Never smoker Alcohol intake: current Drinks per week: 1 Substance use: never Substance use type: does not use Do You Feel Safe in your Home?: Yes Lack of Transportation: No Lack of Food: Never True Current Housing: I Have Housing Concerned About Future Housing: No Difficulty Paying Gas/Electric Bills: No Difficulty Paying for Meds: No Currently Unemployed: No Education: Bachelor's Degree Difficulty w/ Childcare or Family Care: No Living arrangements: with family Additional living arrangements comments: Lives in [place] with his spouse. They have 3 children. 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 Spiritual care concerns: No Anes - Eval Final PreProcedure Day of Procedure 02/20/25 16:24 Patient weight: overweight Heart: regular rate and rhythm Lungs: clear to auscultation Airway: Mallampati scale class II Neurological: alert and oriented Last oral intake: >/= 8 hours ASA classification: IV Emergent: no Anesthetic plan: proceed Anesthesia type and monitoring: general LMA and standard monitoring Results Review: All pre-operative results and documents have been reviewed as part of the pre- operative evaluation. Informed Consent: The patient's anesthetic plan and its attendant risks and benefits were discussed with the patient/family/POA. Questions were solicited and answers provided to the satisfaction of the patient/family/POA.
[2025-02-20] MEDS: LACTATED RINGERS 1,000 ML 30 ML IV CONT (17:22)
--- NOTE | 2025-02-20 17:30 | P.OP_ITS ---
Procedure Note - Detailed Date of Procedure 02/20/25 Pre-op Diagnosis Traumatic hematoma left lower extremity with skin necrosis Post-op Diagnosis Same Procedure Performed Incision and drainage of left lower extremity hematoma with excisional debridement of nonviable skin placement of wound VAC. Surgeon Aravind Syed MD Leak Inspector Marcia Salguero, WAN SUPPORT SPECIALIST Anesthesia General Indications Patient is a 79-year-old gentleman who was admitted to the hospital with cellulitis of the left lower extremity. Fall about 2 weeks ago and suffered trauma to the area developed a hematoma. There is a black eschar with nonviable skin overlying the hematoma cavity. He presents now for incision and drainage of the hematoma and excision debridement of the nonviable skin and placement of wound VAC. Findings After cutting away the nonviable skin and as sharp I entered into hematoma cavity and there was no pus drainage. All the hematoma was clotted blood. After hematoma the wound measured approximately 8x5x1.5cm. The underlying muscle and fascia was viable. A wound VAC was placed with black foam into the wound. Description of Procedure After informed consent was obtained patient brought to the operating room was placed supine position and general LMA anesthesia was administered. The left lower extremity in the lateral mid calf region was then prepped and draped usual sterile fashion circumferentially. Time-out was then performed correctly identifying the patient as well as procedure to be performed. Site marking was verified. He was already on some antibiotics. There was a black hard nonviable eschar of nonviable skin overlying the hematoma cavity. This was removed with an excisional debridement of the eschar and nonviable skin with a scalpel. The tissue was discarded. This revealed an underlying hematoma cavity with clotted blood noted. There is no purulence in the hematoma cavity. I then proceeded to evacuate the hematoma with blunt finger dissection. Once all the clotted blood was evacuated I then irrigated out the abscess cavity with sterile saline solution. The underlying fascia and muscle was completely viable. Only nonviable skin was debrided. There is no debridement of muscle, bone, or subcutaneous tissue. The resulting underlying hematoma cavity after I had backward all the blood clot measured approximately 8x5x1.5cm. Hemostasis was good inside the wound and so then I with a black foam wound VAC. The total surface area of the wound VAC dressing was approximately 40 sq cm. After the black foam was placed into the cavity was then covered with clear adhesive dressings. A small hole was then cut in the dressing to accommodate the suction pad. The suction pad was then applied and then the wound VAC was engaged. We had achieved a good seal with the wound VAC without any air leak. Additional clear adhesive dressings were then placed to further prevent any air leaking. The patient tolerated the procedure well no complications. All sponges, needles, and instrument counts were correct at the end procedure. EBL was _5__cc. The patient was awakened and taken to recovery in stable and satisfactory condition. Implants None Estimated Blood Loss 5 Urine Output 500 Drains No Packing Yes (Black sponge wound VAC applied to wound. Total area was 40 sq cm) Pathology None sent Complications No immediate complications Condition Stable Disposition PACU [facility] Billing Surgery - Charge Forward: Surgery Billing
[2025-02-20] MEDS: fentaNYL CITRATE INJ (*CRX) 100 MCG/2 ML VIAL 25 MCG IV PUSH ×4 (17:34→17:47)
[2025-02-20] MEDS: HYDROmorphone HCL INJ (*CRX) 1 MG/ML SYR 0.25 MG IV PUSH ×2 (17:56→18:01)
[2025-02-20] MEDS: guaiFENesin/DEXTROMETHORPHAN 10 ML UDC PO (21:11)
[2025-02-20] MEDS: TICAGRELOR 90 MG TABLET PO (21:11)
[2025-02-20] MEDS: MELATONIN 5 MG TABLET 10 MG PO (21:12)
[2025-02-20] MEDS: TAMSULOSIN HCL 0.4 MG CAPSULE PO (21:12)
[2025-02-20] MEDS: oxyBUTYnin CHLORIDE XL 5 MG TAB.ER.24 15 MG PO (21:12)
[2025-02-20] MEDS: PANTOPRAZOLE 40 MG TABLET PO (21:12)
[2025-02-20] MEDS: guaiFENesin 12 HR 600 MG TABCR PO (21:12)
[2025-02-20] MEDS: DONEPEZIL HCL 10 MG TABLET PO (21:12)
[2025-02-20] MEDS: METOPROLOL TARTRATE 12.5 MG TABLET PO (21:12)
[2025-02-20] MEDS: ACETAMINOPHEN 325 MG TABLET 650 MG PO (23:13)
[2025-02-21] VITALS (8 sets, daily range): BP systolic 92–136; BP diastolic 43–73; PULSE 53–77; RESP 16–20; TEMP 36.1–36.6; O2SAT 98–100
[2025-02-21] MEDS: AMOXICILLIN 500 MG CAPSULE PO ×3 (05:47→22:12)
[2025-02-21] MEDS: guaiFENesin/DEXTROMETHORPHAN 10 ML UDC PO (05:48)
[2025-02-21] MEDS: LEVOTHYROXINE SODIUM 150 MCG TABLET PO (05:48)
[2025-02-21 06:33] LABS: Basophils Percent Auto 0.3 % (0.2-1.2); Eosinophils Percent Auto 0.1 % (0-4.4); Hematocrit 37.7 % (42.0-52.0); Hemoglobin 12.4 g/dL (14.0-18.0); Immature Granulocyte Absolute 0.01 K/mm3 (0.00-0.031); Immature Granulocyte Percent A 0.1 % (0-0.5); Lymphocytes Absolute Auto 1.22 K/mm3 (0.9-3.2); Lymphocytes Percent Auto 17.7 % (18.3-44.2); Mean Corpuscular HGB Conc 32.9 g/dl (32-36); Mean Corpuscular Hemoglobin 31.1 pg (26-34); Mean Corpuscular Volume 94.5 fl (80-100); Mean Platelet Volume 10.1 fl (7.4-10.4); Monocytes Absolute Auto 0.6 K/mm3 (0.1-0.6); Monocytes Percent Auto 8.7 % (2.6-8.5); Neutrophils Percent Auto 73.1 % (45.5-73.1); Platelet Count Result 251 k/mm3 (150-375); Red Blood Count 3.99 M/mm3 (4.6-6.20); Red Cell Distribution Width 16.3 % (11.5-14.5); White Blood Count 6.9 K/mm3 (4.5-10.0)
[2025-02-21 06:51] LABS: Alanine Aminotransferase 41 U/L (6-50); Albumin Level 3.3 g/dL (3.5-5.1); Alkaline Phosphatase 123 U/L (38-126); Anion Gap 7 mmol/L (4-12); Aspartate Amino Transferase 55 U/L (17-59); Bilirubin,Total 0.7 mg/dL (0.2-1.3); Blood Urea Nitrogen 21 mg/dL (9-20); Calcium 8.5 mg/dL (8.4-10.2); Carbon Dioxide 21 mmol/L (22-30); Chloride 107 mmol/L (98-107); Estimated CRCL calculation 47 ml/min; Estimated Glomerular Filt Rate > 60; Glucose 116 mg/dL (65-110); Magnesium 2.1 mg/dL (1.6-2.3); Potassium 4.6 mmol/L (3.4-5.0); Sodium 135 mmol/L (137-145)
[2025-02-21] MEDS: ACETAMINOPHEN 325 MG TABLET 650 MG PO ×3 (09:06→22:12)
[2025-02-21] MEDS: ROSUVASTATIN 20 MG TABLET 40 MG PO (09:07)
[2025-02-21] MEDS: DOXYCYCLINE HYCLATE 100 MG TABLET PO ×2 (09:07→20:37)
[2025-02-21] MEDS: guaiFENesin 12 HR 600 MG TABCR PO ×2 (09:07→20:38)
[2025-02-21] MEDS: GABAPENTIN 300 MG CAPSULE 600 MG PO ×3 (09:07→16:13)
[2025-02-21] MEDS: CHOLECALCIFEROL 1,000 UNITS TABLET 2000 UNITS PO (09:07)
[2025-02-21] MEDS: FERROUS SULFATE 325 MG TABLET DR PO ×2 (09:07→16:14)
[2025-02-21] MEDS: TICAGRELOR 90 MG TABLET PO ×2 (09:07→20:38)
[2025-02-21] MEDS: PANTOPRAZOLE 40 MG TABLET PO ×2 (09:08→20:38)
[2025-02-21] MEDS: LORATADINE 10 MG TABLET PO (09:08)
[2025-02-21] MEDS: PARoxetine 20 MG TABLET PO (09:08)
[2025-02-21] MEDS: LOSARTAN POTASSIUM 12.5 MG TABLET PO (09:08)
[2025-02-21] MEDS: ASPIRIN 81 MG CHEWABLE TABLET PO (09:08)
[2025-02-21] MEDS: MIRABEGRON 25 MG ER TABLET PO (09:08)
[2025-02-21] MEDS: ENOXAPARIN 40 MG/0.4 ML SYRINGE SUB-Q (09:09)
[2025-02-21] MEDS: METOPROLOL TARTRATE 12.5 MG TABLET PO ×2 (09:20→20:38)
--- NOTE | 2025-02-21 10:37 | PCNFU ---
Nutrition Follow-Up Complete: Unintended weight loss as related to JULIETA as evidenced by weight loss of 10 ibs in 2 weeks. goal: Meet estimated nutritional needs. Patient is meeting goal. Pt current nutrition is Heart Healthy with Ensure Enlive BID. Last recorded weight is 84.4 kg, stable. Bowel Motility: Last reported BM 02/19 Labs Reviewed: Glu 116, BUN 21, Alb 3.3, Na 135, Hct 37.7, Hgb 12.4 Meds Noted: Vit D, Protonix, Lopressor, Lovenox. Skin: WNL Additional Notes: Patient remains on a heart healthy diet, oral intake has been > 75% of meals. Ensure Enlive providing an additional 350 kcal and 20 gm protein. Agree with diet orders. Will monitor weight, labs, skin, diet orders, meds every 7 days.
--- NOTE | 2025-02-21 10:49 | P.PNAN_ITS ---
Anes - Prog Note Post-Op Date/Time: 02/21/25 10:49 Vital Signs: Last Vital Signs Temp 36.4 C 02/21/25 08:00 Pulse 56 L 02/21/25 09:20 Resp 16 02/21/25 08:00 BP 92/50 L 02/21/25 08:00 Pulse Ox 99 02/21/25 08:00 O2 Del Method Room Air 02/20/25 20:00 O2 Flow Rate 8 02/20/25 17:35 Pain Score (VAS): 0 I/O: Intake & Output 02/20/25 02/21/25 02/21/25 23:59 07:59 15:59 Intake Total 50 500 240 Output Total 1200 2000 Balance -1150 -1500 240 Laboratory Tests 02/21/25 06:19 02/21/25 06:19 02/21/25 06:19 WBC 6.9 RBC 3.99 L Hgb 12.4 L Hct 37.7 L MCV 94.5 MCH 31.1 MCHC 32.9 RDW 16.3 H Plt Count 251 MPV 10.1 Immature Gran % (Auto) 0.1 Neut % (Auto) 73.1 Lymph % (Auto) 17.7 L [place] % (Auto) 8.7 H Eos % (Auto) 0.1 Baso % (Auto) 0.3 Lymph # (Auto) 1.22 [place] # (Auto) 0.6 Eos # (Auto) 0.0 Baso # (Auto) 0.0 Abs Immat Gran (auto) 0.01 Absolute Neuts (auto) 5.0 Absolute Nucleated RBC 0.000 Nucleated RBC % 0.0 Sodium 135 L Potassium 4.6 Chloride 107 Carbon Dioxide 21 L Anion Gap 7 BUN 21 H Creatinine 1.16 Estim Creat Clear Calc 47 Estimated GFR > 60 Glucose 116 H Calcium 8.5 Magnesium 2.1 Total Bilirubin 0.7 AST 55 ALT 41 Alkaline Phosphatase 123 Total Protein 7.0 Albumin 3.3 L Microbiology 02/15/25 22:02 Leg Left Anaerobic Culture - Final 02/15/25 22:02 Leg Left Aerobic Culture - Final Patient Feedback: Patient satisfied with anesthetic care.
--- NOTE | 2025-02-21 11:34 | P.PNGS_ITS ---
Progress Note: A&P Assessment and Plan (1) Hematoma of left lower leg: Code(s): S80.12XA - Contusion of left lower leg, initial encounter Status: Acute Assessment and Plan: * Postop day 1 following incision and drainage left lower leg hematoma with excisional debridement of nonviable skin and placement of wound VAC. Continue wound VAC therapy for now. We will plan to change the wound VAC dressing on Wednesday. (2) Falls frequently: Code(s): R29.6 - Repeated falls Status: Acute Plan I have discussed the patient's case and plan of care with Dr. Syed. Subjective Subjective Date/Time Seen: 02/21/25 11:34 Post Op day: 1 Patient reports: afebrile Interval history: No acute changes overnight. No issues with the wound VAC. patient denies pain. Exam Narrative: Left lower leg wound VAC in place and functioning well, scant bloody drainage in canister. Objective Data Vital Signs Vital Signs: Vital Signs - 24 hr 02/20/25 14:00 02/20/25 16:05 02/20/25 17:22 Temperature 97.7 F 97.9 F 97.1 F L Pulse Rate 57 L 53 L 52 L Respiratory Rate 16 14 10 L Blood Pressure 114/70 125/71 135/71 Pulse Oximetry 98 99 100 Oxygen Delivery Room Air Simple Face Mask Oxygen Flow Rate 8 02/20/25 17:35 02/20/25 17:44 02/20/25 17:45 Temperature 97.0 F L Pulse Rate 58 L 54 L Respiratory Rate 19 16 Blood Pressure 128/61 121/64 Pulse Oximetry 99 98 Oxygen Delivery Simple Face Mask Room Air Oxygen Flow Rate 8 02/20/25 17:50 02/20/25 18:05 02/20/25 18:18 Temperature 97.2 F L Pulse Rate 57 L 55 L 53 L Respiratory Rate 15 16 12 Blood Pressure 120/67 135/68 108/68 Pulse Oximetry 99 98 98 Oxygen Delivery Room Air Room Air Room Air Oxygen Flow Rate 02/20/25 18:57 02/20/25 20:00 02/20/25 20:00 Temperature 97.0 F L 97.4 F L Pulse Rate 54 L 58 L Respiratory Rate 16 18 Blood Pressure 127/50 L 121/71 Pulse Oximetry 97 100 Oxygen Delivery Room Air Oxygen Flow Rate 02/21/25 00:45 02/21/25 04:35 02/21/25 08:00 Temperature 97.6 F 97.6 F Pulse Rate 55 L 53 L 55 L Respiratory Rate 20 20 16 Blood Pressure 136/73 112/60 92/50 L Pulse Oximetry 98 98 99 Oxygen Delivery Oxygen Flow Rate 02/21/25 08:00 02/21/25 09:20 Temperature Pulse Rate 56 L Respiratory Rate Blood Pressure Pulse Oximetry Oxygen Delivery Room Air Oxygen Flow Rate Intake/Output Intake/Output: Intake & Output 02/18/25 02/19/25 02/20/25 02/21/25 23:59 23:59 23:59 23:59 Intake Total 1550 1450 50 740 Output Total 2300 1750 2600 2835 Balance -953 -300 -2550 -1260 Meds/Results Medications: Active Medications Generic Name Dose Route Start Last Admin Trade Name Freq PRN Reason Stop Dose Admin Acetaminophen 650 mg 02/16/25 03:09 02/21/25 09:06 Acetaminophen 325 Mg Tablet PO 650 mg Q6H PRN Administration Mild Pain (1-3) or Fever Hydrocodone Bitart/Acetaminophen 1 tab 02/20/25 18:21 Hydrocodone/Acetaminophen (*Crx) 5-325 Mg Tablet PO Q4H PRN Pain Rated 4-6 Amoxicillin 500 mg 02/19/25 13:00 02/21/25 05:47 Amoxicillin 500 Mg Capsule PO 500 mg Q8HR AIMEE Administration Artificial Tears 1 drop 02/18/25 10:10 02/18/25 12:06 Artificial Tears Ophth Soln 15 Ml Bottle EACH EYE 1 drop QID PRN Administration Dry Eye(s) Aspirin 81 mg 02/16/25 11:30 02/21/25 09:08 Aspirin 81 Mg Chewable Tablet PO 81 mg DAILY AIMEE Administration Donepezil HCl 10 mg 02/16/25 21:00 02/20/25 21:12 Donepezil Hcl 10 Mg Tablet PO 10 mg QHS AIMEE Administration Doxycycline Hyclate 100 mg 02/19/25 10:00 02/21/25 09:07 Doxycycline Hyclate 100 Mg Tablet PO 100 mg Q12HR AIMEE Administration Enoxaparin Sodium 40 mg 02/17/25 09:00 02/21/25 09:09 Enoxaparin 40 Mg/0.4 Ml Syringe SUB-Q 40 mg DAILY AIMEE Administration Fentanyl Citrate 25 mcg 02/20/25 16:25 02/20/25 17:47 Fentanyl Citrate Inj (*Crx) 100 Mcg/2 Ml Vial IV PUSH 25 mcg Q2M PRN Administration Pain Ferrous Sulfate 325 mg 02/21/25 17:00 Ferrous Sulfate [address] PO BID@1200,1700 [facility] Gabapentin 600 mg 02/16/25 13:00 02/21/25 09:07 Gabapentin 300 Mg Capsule PO 600 mg TID AIMEE Administration Guaifenesin 600 mg 02/16/25 10:40 02/21/25 09:07 Guaifenesin 12 Hr 600 Mg Tabcr PO 02/23/25 10:39 600 mg Q12HR AIMEE Administration Guaifenesin/Dextromethorphan 10 ml 02/17/25 13:48 02/21/25 05:48 Guaifenesin/Dextromethorphan 10 Ml Udc PO 10 ml Q4H PRN Administration Cough Levothyroxine Sodium 150 mcg 02/17/25 06:30 02/21/25 05:48 Levothyroxine Sodium 150 Mcg Tablet PO 150 mcg DAILY@0630 [facility] Administration Loratadine 10 mg 02/16/25 09:00 02/21/25 09:08 Loratadine 10 Mg Tablet PO 10 mg DAILY AIMEE Administration Losartan Potassium 12.5 mg 02/16/25 11:30 02/21/25 09:08 Losartan Potassium 12.5 Mg Tablet PO 12.5 mg DAILY [facility] Administration Melatonin 10 mg 02/18/25 21:00 02/20/25 21:12 Melatonin 5 Mg Tablet PO 10 mg HS [facility] Administration Metoprolol Tartrate 12.5 mg 02/16/25 11:30 02/21/25 09:20 Metoprolol Tartrate 12.5 Mg Tablet PO 12.5 mg Q12HR AIMEE Administration Mirabegron 25 mg 02/16/25 11:30 02/21/25 09:08 Mirabegron 25 Mg Er Tablet PO 25 mg DAILY [facility] Administration Nitroglycerin 0.4 mg 02/16/25 10:38 Nitroglycerin Sl 0.4 Mg Tablet SUBLINGUAL Q5MIN PRN Chest Pain Ondansetron HCl 4 mg 02/20/25 16:25 Ondansetron Inj 4 Mg/2 Ml Vial IV PUSH ONCE PRN Nausea Oxybutynin Chloride 15 mg 02/16/25 21:00 02/20/25 21:12 Oxybutynin Chloride Xl 5 Mg Tab.Er.24 PO 15 mg HS AIMEE Administration Pantoprazole Sodium 40 mg 02/16/25 11:30 02/21/25 09:08 Pantoprazole 40 Mg Tablet PO 40 mg Q12HR AIMEE Administration Paroxetine HCl 20 mg 02/17/25 09:00 02/21/25 09:08 Paroxetine 20 Mg Tablet PO 20 mg QAM AIMEE Administration Polyethylene Glycol 17 gm 02/16/25 10:43 Polyethylene Glycol 3350 17 Gm Powd.Pack PO QAM PRN Constipation Rosuvastatin Calcium 40 mg 02/16/25 11:30 02/21/25 09:07 Rosuvastatin 20 Mg Tablet PO 40 mg DAILY AIMEE Administration Tamsulosin HCl 0.4 mg 02/16/25 21:00 02/20/25 21:12 Tamsulosin Hcl 0.4 Mg Capsule PO 0.4 mg HS AIMEE Administration Ticagrelor 90 mg 02/16/25 11:30 02/21/25 09:07 Ticagrelor 90 Mg Tablet PO 90 mg Q12HR AIEME Administration Tramadol HCl 50 mg 02/19/25 09:14 02/20/25 21:11 Tramadol Hcl (*Crx) 50 Mg Tablet PO 50 mg Q6H PRN Administration Pain Rated 4-6 Vitamin D 2,000 units 02/16/25 11:30 02/21/25 09:07 Cholecalciferol 1,000 Units Tablet PO 2,000 units DAILY AIMEE Administration Radiology Results: ITS Impressions Foot X-Ray 02/15/25 20:31 IMPRESSION: Unremarkable radiographic evaluation of the left foot, as detailed Tibia/Fibula X-Ray 02/15/25 20:32 IMPRESSION: 3 cm soft tissue density within the lower third of the anterior lower extremity, as detailed above. No acute fracture. Chest X-Ray 02/16/25 12:39 Impression: Clear lungs. Postsurgical change and hiatal hernia, stable from prior exam. Lower Extremity CT 02/19/25 15:25 IMPRESSION: 1. 5.5 x 2.0 x 1.4 cm lenticular lesion in the subcutaneous fat at the anterior mid to distal left lower leg most likely representing complex fluid and either a hematoma or abscess in the appropriate clinical setting. Labs Labs: Laboratory Results - last 24 hr 02/21/25 06:19 WBC 6.9 RBC 3.99 L Hgb 12.4 L Hct 37.7 L MCV 94.5 MCH 31.1 MCHC 32.9 RDW 16.3 H Plt Count 251 MPV 10.1 Immature Gran % (Auto) 0.1 Neut % (Auto) 73.1 Lymph % (Auto) 17.7 L [place] % (Auto) 8.7 H Eos % (Auto) 0.1 Baso % (Auto) 0.3 Lymph # (Auto) 1.22 [place] # (Auto) 0.6 Eos # (Auto) 0.0 Baso # (Auto) 0.0 Abs Immat Gran (auto) 0.01 Absolute Neuts (auto) 5.0 Absolute Nucleated RBC 0.000 Nucleated RBC % 0.0 Sodium 135 L Potassium 4.6 Chloride 107 Carbon Dioxide 21 L Anion Gap 7 BUN 21 H Creatinine 1.16 Estim Creat Clear Calc 47 Estimated GFR > 60 Glucose 116 H Calcium 8.5 Magnesium 2.1 Total Bilirubin 0.7 AST 55 ALT 41 Alkaline Phosphatase 123 Total Protein 7.0 Albumin 3.3 L
--- NOTE | 2025-02-21 16:46 | P.PNIM_ITS ---
Progress Note: A&P Assessment and Plan (1) Falls frequently: Code(s): R29.6 - Repeated falls Status: Acute Assessment and Plan: * PT/OT (2) Weakness: Code(s): R53.1 - Weakness Status: Acute Assessment and Plan: * PT/OT (3) JULIETA (acute kidney injury): Code(s): N17.9 - Acute kidney failure, unspecified Status: Acute Assessment and Plan: * improving. * Continue to trend. * Avoid NSAIDS. (4) Cellulitis of left lower leg: Code(s): L03.116 - Cellulitis of left lower limb Status: Acute Assessment and Plan: * S/P Incision and drainage of left lower extremity hematoma with excisional debridement of nonviable skin placement of wound VAC. * Plan for wound VAC change on Wednesday * Amoxicillin 500 mg PO q8 and Doxycycline 100 mg PO q12. * Monitor site. * Afebrile. WBC 7.2 * Wound culture pending. * Wound care on borad * LLE CT with contrast showed: IMPRESSION: 1. 5.5 x 2.0 x 1.4 cm lenticular lesion in the subcutaneous fat at the anterior mid to distal left lower leg most likely representing complex fluid and either a hematoma or abscess in the appropriate clinical setting. * ASA placed on hold. * Surgery team on board * Pain regimen. (5) UTI (urinary tract infection): Qualifiers: Hematuria presence: without hematuria Urinary tract infection type: acute cystitis Qualified Code(s): N30.00 - Acute cystitis without hematuria Code(s): N39.0 - Urinary tract infection, site not specified Status: Acute Assessment and Plan: * Urine grew Enterococcus Species. * Amoxicillin 500 mg PO q 8. * Afebrile, WBC 8.0. (6) Shoulder pain, bilateral: Code(s): M25.511 - Pain in right shoulder; M25.512 - Pain in left shoulder Status: Acute Assessment and Plan: * Acetaminophen 650 mg PO q 6 PRN. (7) Hypothyroidism: Code(s): E03.9 - Hypothyroidism, unspecified Status: Acute Assessment and Plan: * TSH <0.015, Free T4 2.49. * Decreased Levothyroxine to 150 mcg PO daily. (8) Insomnia: Code(s): G47.00 - Insomnia, unspecified Status: Acute Assessment and Plan: * Melatonin 10 mg PO QHS. Subjective Date/time seen: 02/21/25 16:46 Interval history: Patient is feeling fine. Underwent Incision and drainage of left lower extremity hematoma with excisional debridement of nonviable skin placement of wound VAC 02/20/25. Patient denies chest pain, palpitations, headache, dizziness, nausea, or vo miting. Surgery team on board. Plan for changing wound VAC on Wednesday Review of Systems Review of Systems: All systems reviewed & are unremarkable except as noted in HPI and below Exam Const: General: comfortable, no acute distress and uncomfortable Eyes: Sclera: sclerae normal Pupils: Equal, round and reactive pupils present Resp: Effort & Inspection: normal respiratory effort Auscultation: clear to auscultation bilaterally Cardio: Rate: regular rate Rhythm: regular rhythm GI: Auscultation: normal bowel sounds Neuro: Cranial nerves: Yes Equal, round and reactive pupils present Speech: normal speech Extrem: Other: 1+ edema to LLE. wound VAC in place Psych: Mental Status: mental status grossly normal Affect: normal affect Objective Data Vital Signs Vital Signs: Vital Signs - 24 hr 02/20/25 17:22 02/20/25 17:35 02/20/25 17:44 Temperature 97.1 F L Pulse Rate 52 L 58 L Respiratory Rate 10 L 19 Blood Pressure 135/71 128/61 Pulse Oximetry 100 99 Oxygen Delivery Simple Face Mask Simple Face Mask Room Air Oxygen Flow Rate 8 8 02/20/25 17:45 02/20/25 17:50 02/20/25 18:05 Temperature 97.0 F L Pulse Rate 54 L 57 L 55 L Respiratory Rate 16 15 16 Blood Pressure 121/64 120/67 135/68 Pulse Oximetry 98 99 98 Oxygen Delivery Room Air Room Air Oxygen Flow Rate 02/20/25 18:18 02/20/25 18:57 02/20/25 20:00 Temperature 97.2 F L 97.0 F L Pulse Rate 53 L 54 L Respiratory Rate 12 16 Blood Pressure 108/68 127/50 L Pulse Oximetry 98 97 Oxygen Delivery Room Air Room Air Oxygen Flow Rate 02/20/25 20:00 02/21/25 00:45 02/21/25 04:35 Temperature 97.4 F L 97.6 F Pulse Rate 58 L 55 L 53 L Respiratory Rate 18 20 20 Blood Pressure 121/71 136/73 112/60 Pulse Oximetry 100 98 98 Oxygen Delivery Oxygen Flow Rate 02/21/25 08:00 02/21/25 08:00 02/21/25 09:20 Temperature 97.6 F Pulse Rate 55 L 56 L Respiratory Rate 16 Blood Pressure 92/50 L Pulse Oximetry 99 Oxygen Delivery Room Air Oxygen Flow Rate 02/21/25 12:00 Temperature 97.8 F Pulse Rate 77 Respiratory Rate 16 Blood Pressure 100/48 L Pulse Oximetry 100 Oxygen Delivery Oxygen Flow Rate Intake/Output Intake/Output: Intake & Output 02/18/25 02/19/25 02/20/25 02/21/25 23:59 23:59 23:59 23:59 Intake Total 1550 1450 50 980 Output Total 2300 1750 2600 1999 Balance -750 -300 -2550 -1020 Meds/Results Medications: Active Medications Generic Name Dose Route Start Last Admin Trade Name Freq PRN Reason Stop Dose Admin Acetaminophen 650 mg 02/16/25 03:09 02/21/25 16:14 Acetaminophen 325 Mg Tablet PO 650 mg Q6H PRN Administration Mild Pain (1-3) or Fever Hydrocodone Bitart/Acetaminophen 1 tab 02/20/25 18:21 Hydrocodone/Acetaminophen (*Crx) 5-325 Mg Tablet PO Q4H PRN Pain Rated 4-6 Amoxicillin 500 mg 02/19/25 13:00 02/21/25 14:13 Amoxicillin 500 Mg Capsule PO 500 mg Q8HR AIMEE Administration Artificial Tears 1 drop 02/18/25 10:10 02/18/25 12:06 Artificial Tears Ophth Soln 15 Ml Bottle EACH EYE 1 drop QID PRN Administration Dry Eye(s) Aspirin 81 mg 02/16/25 11:30 02/21/25 09:08 Aspirin 81 Mg Chewable Tablet PO 81 mg DAILY AIMEE Administration Donepezil HCl 10 mg 02/16/25 21:00 02/20/25 21:12 Donepezil Hcl 10 Mg Tablet PO 10 mg QHS AIMEE Administration Doxycycline Hyclate 100 mg 02/19/25 10:00 02/21/25 09:07 Doxycycline Hyclate 100 Mg Tablet PO 100 mg Q12HR AIMEE Administration Enoxaparin Sodium 40 mg 02/17/25 09:00 02/21/25 09:09 Enoxaparin 40 Mg/0.4 Ml Syringe SUB-Q 40 mg DAILY AIMEE Administration Ferrous Sulfate 325 mg 02/21/25 17:00 02/21/25 16:14 Ferrous Sulfate [address] PO 325 mg BID@1200,1700 AIMEE Administration Gabapentin 600 mg 02/16/25 13:00 02/21/25 16:13 Gabapentin 300 Mg Capsule PO 600 mg TID AIMEE Administration Guaifenesin 600 mg 02/16/25 10:40 02/21/25 09:07 Guaifenesin 12 Hr 600 Mg Tabcr PO 02/23/25 10:39 600 mg Q12HR AIMEE Administration Guaifenesin/Dextromethorphan 10 ml 02/17/25 13:48 02/21/25 05:48 Guaifenesin/Dextromethorphan 10 Ml Udc PO 10 ml Q4H PRN Administration Cough Levothyroxine Sodium 150 mcg 02/17/25 06:30 02/21/25 05:48 Levothyroxine Sodium 150 Mcg Tablet PO 150 mcg DAILY@0630 AIMEE Administration Loratadine 10 mg 02/16/25 09:00 02/21/25 09:08 Loratadine 10 Mg Tablet PO 10 mg DAILY AIMEE Administration Losartan Potassium 12.5 mg 02/16/25 11:30 02/21/25 09:08 Losartan Potassium 12.5 Mg Tablet PO 12.5 mg DAILY AIMEE Administration Melatonin 10 mg 02/18/25 21:00 02/20/25 21:12 Melatonin 5 Mg Tablet PO 10 mg HS AIMEE Administration Metoprolol Tartrate 12.5 mg 02/16/25 11:30 02/21/25 09:20 Metoprolol Tartrate 12.5 Mg Tablet PO 12.5 mg Q12HR AIMEE Administration Mirabegron 25 mg 02/16/25 11:30 02/21/25 09:08 Mirabegron 25 Mg Er Tablet PO 25 mg DAILY AIMEE Administration Nitroglycerin 0.4 mg 02/16/25 10:38 Nitroglycerin Sl 0.4 Mg Tablet SUBLINGUAL Q5MIN PRN Chest Pain Oxybutynin Chloride 15 mg 02/16/25 21:00 02/20/25 21:12 Oxybutynin Chloride Xl 5 Mg Tab.Er.24 PO 15 mg HS AIMEE Administration Pantoprazole Sodium 40 mg 02/16/25 11:30 02/21/25 09:08 Pantoprazole 40 Mg Tablet PO 40 mg Q12HR AIMEE Administration Paroxetine HCl 20 mg 02/17/25 09:00 02/21/25 09:08 Paroxetine 20 Mg Tablet PO 20 mg QAM AIMEE Administration Polyethylene Glycol 17 gm 02/16/25 10:43 Polyethylene Glycol 3350 17 Gm Powd.Pack PO QAM PRN Constipation Rosuvastatin Calcium 40 mg 02/16/25 11:30 02/21/25 09:07 Rosuvastatin 20 Mg Tablet PO 40 mg DAILY AIMEE Administration Tamsulosin HCl 0.4 mg 02/16/25 21:00 02/20/25 21:12 Tamsulosin Hcl 0.4 Mg Capsule PO 0.4 mg HS AIMEE Administration Ticagrelor 90 mg 02/16/25 11:30 02/21/25 09:07 Ticagrelor 90 Mg Tablet PO 90 mg Q12HR AIMEE Administration Tramadol HCl 50 mg 02/19/25 09:14 02/20/25 21:11 Tramadol Hcl (*Crx) 50 Mg Tablet PO 50 mg Q6H PRN Administration Pain Rated 4-6 Vitamin D 2,000 units 02/16/25 11:30 02/21/25 09:07 Cholecalciferol 1,000 Units Tablet PO 2,000 units DAILY AIMEE Administration Radiology Results: ITS Impressions Foot X-Ray 02/15/25 20:31 IMPRESSION: Unremarkable radiographic evaluation of the left foot, as detailed Tibia/Fibula X-Ray 02/15/25 20:32 IMPRESSION: 3 cm soft tissue density within the lower third of the anterior lower extremity, as detailed above. No acute fracture. Chest X-Ray 02/16/25 12:39 Impression: Clear lungs. Postsurgical change and hiatal hernia, stable from prior exam. Lower Extremity CT 02/19/25 15:25 IMPRESSION: 1. 5.5 x 2.0 x 1.4 cm lenticular lesion in the subcutaneous fat at the anterior mid to distal left lower leg most likely representing complex fluid and either a hematoma or abscess in the appropriate clinical setting. Labs Labs: Laboratory Results - last 24 hr 02/21/25 06:19 WBC 6.9 RBC 3.99 L Hgb 12.4 L Hct 37.7 L MCV 94.5 MCH 31.1 MCHC 32.9 RDW 16.3 H Plt Count 251 MPV 10.1 Immature Gran % (Auto) 0.1 Neut % (Auto) 73.1 Lymph % (Auto) 17.7 L [place] % (Auto) 8.7 H Eos % (Auto) 0.1 Baso % (Auto) 0.3 Lymph # (Auto) 1.22 [place] # (Auto) 0.6 Eos # (Auto) 0.0 Baso # (Auto) 0.0 Abs Immat Gran (auto) 0.01 Absolute Neuts (auto) 5.0 Absolute Nucleated RBC 0.000 Nucleated RBC % 0.0 Sodium 135 L Potassium 4.6 Chloride 107 Carbon Dioxide 21 L Anion Gap 7 BUN 21 H Creatinine 1.16 Estim Creat Clear Calc 47 Estimated GFR > 60 Glucose 116 H Calcium 8.5 Magnesium 2.1 Total Bilirubin 0.7 AST 55 ALT 41 Alkaline Phosphatase 123 Total Protein 7.0 Albumin 3.3 L Quality VTE Prophylaxis VTE prophylaxis: pharmacologic ordered
[2025-02-21] MEDS: DONEPEZIL HCL 10 MG TABLET PO (20:37)
[2025-02-21] MEDS: oxyBUTYnin CHLORIDE XL 5 MG TAB.ER.24 15 MG PO (20:37)
[2025-02-21] MEDS: TAMSULOSIN HCL 0.4 MG CAPSULE PO (20:38)
[2025-02-21] MEDS: MELATONIN 5 MG TABLET 10 MG PO (22:12)
[2025-02-22] VITALS (9 sets, daily range): BP systolic 100–124; BP diastolic 49–70; PULSE 50–78; RESP 16–20; TEMP 35.8–36.4; O2SAT 97–100
[2025-02-22 05:44] LABS: Basophils Absolute Auto 0.1 K/mm3 (0.0-0.1); Basophils Percent Auto 0.9 % (0.2-1.2); Eosinophils Absolute Auto 0.3 K/mm3 (0-0.3); Hematocrit 35.7 % (42.0-52.0); Hemoglobin 11.5 g/dL (14.0-18.0); Immature Granulocyte Absolute 0.03 K/mm3 (0.00-0.031); Immature Granulocyte Percent A 0.4 % (0-0.5); Lymphocytes Absolute Auto 1.91 K/mm3 (0.9-3.2); Lymphocytes Percent Auto 27.5 % (18.3-44.2); Mean Corpuscular HGB Conc 32.2 g/dl (32-36); Mean Corpuscular Hemoglobin 30.9 pg (26-34); Mean Platelet Volume 10.5 fl (7.4-10.4); Monocytes Absolute Auto 0.9 K/mm3 (0.1-0.6); Monocytes Percent Auto 12.7 % (2.6-8.5); Neutrophils Absolute Auto 3.8 K/mm3 (1.3-6.7); Neutrophils Percent Auto 54.5 % (45.5-73.1); Platelet Count Result 236 k/mm3 (150-375); Red Blood Count 3.72 M/mm3 (4.6-6.20); Red Cell Distribution Width 16.2 % (11.5-14.5); White Blood Count 6.9 K/mm3 (4.5-10.0)
[2025-02-22] MEDS: AMOXICILLIN 500 MG CAPSULE PO ×3 (05:49→21:59)
[2025-02-22] MEDS: LEVOTHYROXINE SODIUM 150 MCG TABLET PO (05:49)
[2025-02-22 05:57] LABS: Alanine Aminotransferase 43 U/L (6-50); Albumin Level 3.1 g/dL (3.5-5.1); Alkaline Phosphatase 107 U/L (38-126); Anion Gap 5 mmol/L (4-12); Aspartate Amino Transferase 57 U/L (17-59); Bilirubin,Total 0.5 mg/dL (0.2-1.3); Blood Urea Nitrogen 30 mg/dL (9-20); Calcium 8.6 mg/dL (8.4-10.2); Carbon Dioxide 26 mmol/L (22-30); Chloride 105 mmol/L (98-107); Estimated CRCL calculation 40 ml/min; Estimated Glomerular Filt Rate 50; Glucose 97 mg/dL (65-110); Magnesium 2.2 mg/dL (1.6-2.3); Potassium 4.7 mmol/L (3.4-5.0); Sodium 136 mmol/L (137-145)
[2025-02-22] MEDS: TICAGRELOR 90 MG TABLET PO ×2 (09:57→20:01)
[2025-02-22] MEDS: GABAPENTIN 300 MG CAPSULE 600 MG PO ×3 (09:57→18:11)
[2025-02-22] MEDS: LOSARTAN POTASSIUM 12.5 MG TABLET PO (09:57)
[2025-02-22] MEDS: PARoxetine 20 MG TABLET PO (09:57)
[2025-02-22] MEDS: DOXYCYCLINE HYCLATE 100 MG TABLET PO ×2 (09:57→20:02)
[2025-02-22] MEDS: PANTOPRAZOLE 40 MG TABLET PO ×2 (09:57→20:01)
[2025-02-22] MEDS: ROSUVASTATIN 20 MG TABLET 40 MG PO (09:57)
[2025-02-22] MEDS: MIRABEGRON 25 MG ER TABLET PO (09:57)
[2025-02-22] MEDS: CHOLECALCIFEROL 1,000 UNITS TABLET 2000 UNITS PO (09:57)
[2025-02-22] MEDS: guaiFENesin 12 HR 600 MG TABCR PO ×2 (09:57→20:01)
[2025-02-22] MEDS: ASPIRIN 81 MG CHEWABLE TABLET PO (09:57)
[2025-02-22] MEDS: LORATADINE 10 MG TABLET PO (09:58)
[2025-02-22] MEDS: TRIAMCINOLONE ACET 0.1% OINT 15 GM TUBE 1 APPLIC TOPICAL (09:59)
[2025-02-22] MEDS: ENOXAPARIN 40 MG/0.4 ML SYRINGE SUB-Q (09:59)
[2025-02-22] MEDS: METOPROLOL TARTRATE 12.5 MG TABLET PO ×2 (10:00→20:04)
[2025-02-22] MEDS: guaiFENesin/DEXTROMETHORPHAN 10 ML UDC PO ×2 (10:07→18:12)
--- NOTE | 2025-02-22 11:20 | P.PNIM_ITS ---
Progress Note: A&P Assessment and Plan (1) Falls frequently: Code(s): R29.6 - Repeated falls Status: Acute Assessment and Plan: * PT/OT (2) Weakness: Code(s): R53.1 - Weakness Status: Acute Assessment and Plan: * PT/OT (3) JULIETA (acute kidney injury): Code(s): N17.9 - Acute kidney failure, unspecified Status: Acute Assessment and Plan: * improving. * Continue to trend. * Avoid NSAIDS. (4) Cellulitis of left lower leg: Code(s): L03.116 - Cellulitis of left lower limb Status: Acute Assessment and Plan: * S/P Incision and drainage of left lower extremity hematoma with excisional debridement of nonviable skin placement of wound VAC. * Plan for wound VAC change on Wednesday * Amoxicillin 500 mg PO q8 and Doxycycline 100 mg PO q12. * Monitor site. * Afebrile. * Wound culture no growth. * Wound care on borad * LLE CT with contrast showed: IMPRESSION: 1. 5.5 x 2.0 x 1.4 cm lenticular lesion in the subcutaneous fat at the anterior mid to distal left lower leg most likely representing complex fluid and either a hematoma or abscess in the appropriate clinical setting. * Surgery team on board * Pain regimen. (5) UTI (urinary tract infection): Qualifiers: Hematuria presence: without hematuria Urinary tract infection type: acute cystitis Qualified Code(s): N30.00 - Acute cystitis without hematuria Code(s): N39.0 - Urinary tract infection, site not specified Status: Acute Assessment and Plan: * Urine grew Enterococcus Species. * Amoxicillin 500 mg PO q 8. * Afebrile, WBC 8.0. (6) Shoulder pain, bilateral: Code(s): M25.511 - Pain in right shoulder; M25.512 - Pain in left shoulder Status: Acute Assessment and Plan: * Acetaminophen 650 mg PO q 6 PRN. (7) Hypothyroidism: Code(s): E03.9 - Hypothyroidism, unspecified Status: Acute Assessment and Plan: * TSH <0.015, Free T4 2.49. * Decreased Levothyroxine to 150 mcg PO daily. (8) Insomnia: Code(s): G47.00 - Insomnia, unspecified Status: Acute Assessment and Plan: * Melatonin 10 mg PO QHS. Subjective Date/time seen: 02/22/25 11:20 Interval history: 02/21/25 Patient is feeling fine. Underwent Incision and drainage of left lower extremity hematoma with excisional debridement of nonviable skin placement of wound VAC 02/20/25. Patient denies chest pain, palpitations, headache, dizziness, nausea, or vomiting. Surgery team on board. Plan for changing wound VAC on Wednesday02/22/25 patient was seen and examined at bedside. he is feeling fine. no acute event overnight. plan for wound vac change tomorrow. Review of Systems Review of Systems: All systems reviewed & are unremarkable except as noted in HPI and below Exam Const: General: comfortable, no acute distress and uncomfortable Eyes: Sclera: sclerae normal Pupils: Equal, round and reactive pupils present Resp: Effort & Inspection: normal respiratory effort Auscultation: clear to auscultation bilaterally Cardio: Rate: regular rate Rhythm: regular rhythm GI: Auscultation: normal bowel sounds Neuro: Cranial nerves: Yes Equal, round and reactive pupils present Speech: normal speech Extrem: Other: 1+ edema to LLE. wound VAC in place Psych: Mental Status: mental status grossly normal Affect: normal affect Objective Data Vital Signs Vital Signs: Vital Signs - 24 hr 02/21/25 12:00 02/21/25 16:00 02/21/25 20:00 Temperature 97.8 F 97.6 F 97.0 F L Pulse Rate 77 75 57 L Respiratory Rate 16 20 20 Blood Pressure 100/48 L 105/50 L 103/43 L Pulse Oximetry 100 100 98 02/21/25 20:38 02/22/25 00:40 02/22/25 06:00 Temperature 97.0 F L 96.6 F L Pulse Rate 60 54 L 50 L Respiratory Rate 20 20 Blood Pressure 102/49 L 112/57 L Pulse Oximetry 99 98 02/22/25 08:00 02/22/25 10:00 Temperature 96.5 F L Pulse Rate 57 L 54 L Respiratory Rate 16 Blood Pressure 112/51 L Pulse Oximetry 100 Intake/Output Intake/Output: Intake & Output 02/19/25 02/20/25 02/21/25 02/22/25 23:59 23:59 23:59 23:59 Intake Total 1450 50 1620 1060 Output Total 1750 2600 2400 2200 Balance -300 -2550 -780 -1140 Meds/Results Medications: Active Medications Generic Name Dose Route Start Last Admin Trade Name Freq PRN Reason Stop Dose Admin Acetaminophen 650 mg 02/16/25 03:09 02/21/25 22:12 Acetaminophen 325 Mg Tablet PO 650 mg Q6H PRN Administration Mild Pain (1-3) or Fever Hydrocodone Bitart/Acetaminophen 1 tab 02/20/25 18:21 Hydrocodone/Acetaminophen (*Crx) 5-325 Mg Tablet PO Q4H PRN Pain Rated 4-6 Amoxicillin 500 mg 02/19/25 13:00 02/22/25 05:49 Amoxicillin 500 Mg Capsule PO 500 mg Q8HR AIMEE Administration Artificial Tears 1 drop 02/18/25 10:10 02/18/25 12:06 Artificial Tears Ophth Soln 15 Ml Bottle EACH EYE 1 drop QID PRN Administration Dry Eye(s) Aspirin 81 mg 02/16/25 11:30 02/22/25 09:57 Aspirin 81 Mg Chewable Tablet PO 81 mg DAILY AIMEE Administration Donepezil HCl 10 mg 02/16/25 21:00 02/21/25 20:37 Donepezil Hcl 10 Mg Tablet PO 10 mg QHS AIMEE Administration Doxycycline Hyclate 100 mg 02/19/25 10:00 02/22/25 09:57 Doxycycline Hyclate 100 Mg Tablet PO 100 mg Q12HR AIMEE Administration Enoxaparin Sodium 40 mg 02/17/25 09:00 02/22/25 09:59 Enoxaparin 40 Mg/0.4 Ml Syringe SUB-Q 40 mg DAILY AIMEE Administration Ferrous Sulfate 325 mg 02/21/25 17:00 02/21/25 16:14 Ferrous Sulfate [address] PO 325 mg BID@1200,1700 AIMEE Administration Furosemide 20 mg 02/22/25 09:00 Furosemide 20 Mg Tablet PO DAILY AIMEE Gabapentin 600 mg 02/16/25 13:00 02/22/25 09:57 Gabapentin 300 Mg Capsule PO 600 mg TID AIMEE Administration Guaifenesin 600 mg 02/16/25 10:40 02/22/25 09:57 Guaifenesin 12 Hr 600 Mg Tabcr PO 02/23/25 10:39 600 mg Q12HR AIMEE Administration Guaifenesin/Dextromethorphan 10 ml 02/17/25 13:48 02/22/25 10:07 Guaifenesin/Dextromethorphan 10 Ml Udc PO 10 ml Q4H PRN Administration Cough Levothyroxine Sodium 100 mcg 02/23/25 06:30 Levothyroxine Sodium 100 Mcg Tablet PO DAILY@0630 AIMEE Levothyroxine Sodium 75 mcg 02/23/25 06:30 Levothyroxine Sodium 75 Mcg Tablet PO DAILY@0630 AIMEE Loratadine 10 mg 02/16/25 09:00 02/22/25 09:58 Loratadine 10 Mg Tablet PO 10 mg DAILY AIMEE Administration Losartan Potassium 12.5 mg 02/16/25 11:30 02/22/25 09:57 Losartan Potassium 12.5 Mg Tablet PO 12.5 mg DAILY AIMEE Administration Melatonin 10 mg 02/18/25 21:00 02/21/25 22:12 Melatonin 5 Mg Tablet PO 10 mg HS AIMEE Administration Metoprolol Tartrate 12.5 mg 02/16/25 11:30 02/22/25 10:00 Metoprolol Tartrate 12.5 Mg Tablet PO 12.5 mg Q12HR AIMEE Administration Mirabegron 25 mg 02/16/25 11:30 02/22/25 09:57 Mirabegron 25 Mg Er Tablet PO 25 mg DAILY AIMEE Administration Miscellaneous Information 1 each 02/22/25 00:01 Home Furosemide Order Says To Hold Till Provider Says It Is Okay To Take Again. Patient [place] XX 03/24/25 00:00 CLARIFY AIMEE Nitroglycerin 0.4 mg 02/16/25 10:38 Nitroglycerin Sl 0.4 Mg Tablet SUBLINGUAL Q5MIN PRN Chest Pain Oxybutynin Chloride 15 mg 02/16/25 21:00 02/21/25 20:37 Oxybutynin Chloride Xl 5 Mg Tab.Er.24 PO 15 mg HS AIMEE Administration Pantoprazole Sodium 40 mg 02/16/25 11:30 02/22/25 09:57 Pantoprazole 40 Mg Tablet PO 40 mg Q12HR AIMEE Administration Paroxetine HCl 20 mg 02/17/25 09:00 02/22/25 09:57 Paroxetine 20 Mg Tablet PO 20 mg QAM AIMEE Administration Polyethylene Glycol 17 gm 02/16/25 10:43 Polyethylene Glycol 3350 17 Gm Powd.Pack PO QAM PRN Constipation Rosuvastatin Calcium 40 mg 02/16/25 11:30 02/22/25 09:57 Rosuvastatin 20 Mg Tablet PO 40 mg DAILY AIMEE Administration Tamsulosin HCl 0.4 mg 02/16/25 21:00 02/21/25 20:38 Tamsulosin Hcl 0.4 Mg Capsule PO 0.4 mg HS AIMEE Administration Ticagrelor 90 mg 02/16/25 11:30 02/22/25 09:57 Ticagrelor 90 Mg Tablet PO 90 mg Q12HR AIMEE Administration Tizanidine HCl 2 mg 02/22/25 07:31 Tizanidine Hcl 2 Mg Tablet PO Q8H PRN Muscle Pain Tramadol HCl 50 mg 02/19/25 09:14 02/20/25 21:11 Tramadol Hcl (*Crx) 50 Mg Tablet PO 50 mg Q6H PRN Administration Pain Rated 4-6 Triamcinolone Acetonide 1 applic 02/22/25 09:00 02/22/25 09:59 Triamcinolone Acet 0.1% Oint 15 Gm Tube TOPICAL 1 applic DAILY PRN Administration itching Vitamin D 2,000 units 02/16/25 11:30 02/22/25 09:57 Cholecalciferol 1,000 Units Tablet PO 2,000 units DAILY AIMEE Administration Radiology Results: ITS Impressions Foot X-Ray 02/15/25 20:31 IMPRESSION: Unremarkable radiographic evaluation of the left foot, as detailed Tibia/Fibula X-Ray 02/15/25 20:32 IMPRESSION: 3 cm soft tissue density within the lower third of the anterior lower extremity, as detailed above. No acute fracture. Chest X-Ray 02/16/25 12:39 Impression: Clear lungs. Postsurgical change and hiatal hernia, stable from prior exam. Lower Extremity CT 02/19/25 15:25 IMPRESSION: 1. 5.5 x 2.0 x 1.4 cm lenticular lesion in the subcutaneous fat at the anterior mid to distal left lower leg most likely representing complex fluid and either a hematoma or abscess in the appropriate clinical setting. Labs Labs: Laboratory Results - last 24 hr 02/22/25 05:28 WBC 6.9 RBC 3.72 L Hgb 11.5 L Hct 35.7 L MCV 96.0 MCH 30.9 MCHC 32.2 RDW 16.2 H Plt Count 236 MPV 10.5 H Immature Gran % (Auto) 0.4 Neut % (Auto) 54.5 Lymph % (Auto) 27.5 [place] % (Auto) 12.7 H Eos % (Auto) 4.0 Baso % (Auto) 0.9 Lymph # (Auto) 1.91 [place] # (Auto) 0.9 H Eos # (Auto) 0.3 Baso # (Auto) 0.1 Abs Immat Gran (auto) 0.03 Absolute Neuts (auto) 3.8 Absolute Nucleated RBC 0.000 Nucleated RBC % 0.0 Sodium 136 L Potassium 4.7 Chloride 105 Carbon Dioxide 26 Anion Gap 5 BUN 30 H Creatinine 1.36 H Estim Creat Clear Calc 40 Estimated GFR 50 L Glucose 97 Calcium 8.6 Magnesium 2.2 Total Bilirubin 0.5 AST 57 ALT 43 Alkaline Phosphatase 107 Total Protein 6.0 L Albumin 3.1 L Quality VTE Prophylaxis VTE prophylaxis: pharmacologic ordered
--- NOTE | 2025-02-22 12:37 | PM.PNGS ---
Progress Note: A&P Assessment and Plan (1) Hematoma of left lower leg: Code(s): S80.12XA - Contusion of left lower leg, initial encounter Status: Acute Assessment and Plan: Postop day 2 following incision and drainage left lower leg hematoma with excisional debridement of nonviable skin and placement of wound VAC. Continue wound VAC therapy for now. We will plan to change the wound VAC dressing tomorrow. (2) Falls frequently: Code(s): R29.6 - Repeated falls Status: Acute Plan I have discussed the patient's case and plan of care with Dr. Crowley. Subjective Subjective Date/Time Seen: 02/22/25 12:37 Patient reports: no new complaints and afebrile Interval history: Patient denies any acute issues overnight. He is not having pain. His left lower leg is tender, but no causing any pain. No issues with the wound vac. Exam Narrative: Left lower leg wound VAC in place and functioning well, scant bloody drainage in canister. Objective Data Vital Signs Vital Signs: Vital Signs - 24 hr 02/21/25 16:00 02/21/25 20:00 02/21/25 20:38 Temperature 97.6 F 97.0 F L Pulse Rate 75 57 L 60 Respiratory Rate 20 20 Blood Pressure 105/50 L 103/43 L Pulse Oximetry 100 98 02/22/25 00:40 02/22/25 06:00 02/22/25 08:00 Temperature 97.0 F L 96.6 F L 96.5 F L Pulse Rate 54 L 50 L 57 L Respiratory Rate 20 20 16 Blood Pressure 102/49 L 112/57 L 112/51 L Pulse Oximetry 99 98 100 02/22/25 10:00 Temperature Pulse Rate 54 L Respiratory Rate Blood Pressure Pulse Oximetry Intake/Output Intake/Output: Intake & Output 02/19/25 02/20/25 02/21/25 02/22/25 23:59 23:59 23:59 23:59 Intake Total 1450 50 1620 1060 Output Total 1750 2600 2400 2200 Balance -300 -2550 -780 -1140 Meds/Results Medications: Active Medications Generic Name Dose Route Start Last Admin Trade Name Freq PRN Reason Stop Dose Admin Acetaminophen 650 mg 02/16/25 03:09 02/21/25 22:12 Acetaminophen 325 Mg Tablet PO 650 mg Q6H PRN Administration Mild Pain (1-3) or Fever Hydrocodone Bitart/Acetaminophen 1 tab 02/20/25 18:21 Hydrocodone/Acetaminophen (*Crx) 5-325 Mg Tablet PO Q4H PRN Pain Rated 4-6 Amoxicillin 500 mg 02/19/25 13:00 02/22/25 05:49 Amoxicillin 500 Mg Capsule PO 500 mg Q8HR AIMEE Administration Artificial Tears 1 drop 02/18/25 10:10 02/18/25 12:06 Artificial Tears Ophth Soln 15 Ml Bottle EACH EYE 1 drop QID PRN Administration Dry Eye(s) Aspirin 81 mg 02/16/25 11:30 02/22/25 09:57 Aspirin 81 Mg Chewable Tablet PO 81 mg DAILY AIMEE Administration Donepezil HCl 10 mg 02/16/25 21:00 02/21/25 20:37 Donepezil Hcl 10 Mg Tablet PO 10 mg QHS AIMEE Administration Doxycycline Hyclate 100 mg 02/19/25 10:00 02/22/25 09:57 Doxycycline Hyclate 100 Mg Tablet PO 100 mg Q12HR AIMEE Administration Enoxaparin Sodium 40 mg 02/17/25 09:00 02/22/25 09:59 Enoxaparin 40 Mg/0.4 Ml Syringe SUB-Q 40 mg DAILY AIMEE Administration Ferrous Sulfate 325 mg 02/21/25 17:00 02/21/25 16:14 Ferrous Sulfate [address] PO 325 mg BID@1200,1700 AIMEE Administration Furosemide 20 mg 02/22/25 09:00 Furosemide 20 Mg Tablet PO DAILY [facility] Gabapentin 600 mg 02/16/25 13:00 02/22/25 09:57 Gabapentin 300 Mg Capsule PO 600 mg TID AIMEE Administration Guaifenesin 600 mg 02/16/25 10:40 02/22/25 09:57 Guaifenesin 12 Hr 600 Mg Tabcr PO 02/23/25 10:39 600 mg Q12HR AIMEE Administration Guaifenesin/Dextromethorphan 10 ml 02/17/25 13:48 02/22/25 10:07 Guaifenesin/Dextromethorphan 10 Ml Udc PO 10 ml Q4H PRN Administration Cough Levothyroxine Sodium 100 mcg 02/23/25 06:30 Levothyroxine Sodium 100 Mcg Tablet PO DAILY@0630 [facility] Levothyroxine Sodium 75 mcg 02/23/25 06:30 Levothyroxine Sodium 75 Mcg Tablet PO DAILY@0630 AIMEE Loratadine 10 mg 02/16/25 09:00 02/22/25 09:58 Loratadine 10 Mg Tablet PO 10 mg DAILY AIMEE Administration Losartan Potassium 12.5 mg 02/16/25 11:30 02/22/25 09:57 Losartan Potassium 12.5 Mg Tablet PO 12.5 mg DAILY AIMEE Administration Melatonin 10 mg 02/18/25 21:00 02/21/25 22:12 Melatonin 5 Mg Tablet PO 10 mg HS AIMEE Administration Metoprolol Tartrate 12.5 mg 02/16/25 11:30 02/22/25 10:00 Metoprolol Tartrate 12.5 Mg Tablet PO 12.5 mg Q12HR AIMEE Administration Mirabegron 25 mg 02/16/25 11:30 02/22/25 09:57 Mirabegron 25 Mg Er Tablet PO 25 mg DAILY AIMEE Administration Miscellaneous Information 1 each 02/22/25 00:01 Home Furosemide Order Says To Hold Till Provider Says It Is Okay To Take Again. Patient [place] XX 03/24/25 00:00 CLARIFY AIMEE Nitroglycerin 0.4 mg 02/16/25 10:38 Nitroglycerin Sl 0.4 Mg Tablet SUBLINGUAL Q5MIN PRN Chest Pain Oxybutynin Chloride 15 mg 02/16/25 21:00 02/21/25 20:37 Oxybutynin Chloride Xl 5 Mg Tab.Er.24 PO 15 mg HS AIMEE Administration Pantoprazole Sodium 40 mg 02/16/25 11:30 02/22/25 09:57 Pantoprazole 40 Mg Tablet PO 40 mg Q12HR AIMEE Administration Paroxetine HCl 20 mg 02/17/25 09:00 02/22/25 09:57 Paroxetine 20 Mg Tablet PO 20 mg QAM AIMEE Administration Polyethylene Glycol 17 gm 02/16/25 10:43 Polyethylene Glycol 3350 17 Gm Powd.Pack PO QAM PRN Constipation Rosuvastatin Calcium 40 mg 02/16/25 11:30 02/22/25 09:57 Rosuvastatin 20 Mg Tablet PO 40 mg DAILY AIMEE Administration Tamsulosin HCl 0.4 mg 02/16/25 21:00 02/21/25 20:38 Tamsulosin Hcl 0.4 Mg Capsule PO 0.4 mg HS AIMEE Administration Ticagrelor 90 mg 02/16/25 11:30 02/22/25 09:57 Ticagrelor 90 Mg Tablet PO 90 mg Q12HR AIMEE Administration Tizanidine HCl 2 mg 02/22/25 07:31 Tizanidine Hcl 2 Mg Tablet PO Q8H PRN Muscle Pain Tramadol HCl 50 mg 02/19/25 09:14 02/20/25 21:11 Tramadol Hcl (*Crx) 50 Mg Tablet PO 50 mg Q6H PRN Administration Pain Rated 4-6 Triamcinolone Acetonide 1 applic 02/22/25 09:00 02/22/25 09:59 Triamcinolone Acet 0.1% Oint 15 Gm Tube TOPICAL 1 applic DAILY PRN Administration itching Vitamin D 2,000 units 02/16/25 11:30 02/22/25 09:57 Cholecalciferol 1,000 Units Tablet PO 2,000 units DAILY AIMEE Administration Radiology Results: ITS Impressions Foot X-Ray 02/15/25 20:31 IMPRESSION: Unremarkable radiographic evaluation of the left foot, as detailed Tibia/Fibula X-Ray 02/15/25 20:32 IMPRESSION: 3 cm soft tissue density within the lower third of the anterior lower extremity, as detailed above. No acute fracture. Chest X-Ray 02/16/25 12:39 Impression: Clear lungs. Postsurgical change and hiatal hernia, stable from prior exam. Lower Extremity CT 02/19/25 15:25 IMPRESSION: 1. 5.5 x 2.0 x 1.4 cm lenticular lesion in the subcutaneous fat at the anterior mid to distal left lower leg most likely representing complex fluid and either a hematoma or abscess in the appropriate clinical setting. Labs Labs: Laboratory Results - last 24 hr 02/22/25 05:28 WBC 6.9 RBC 3.72 L Hgb 11.5 L Hct 35.7 L MCV 96.0 MCH 30.9 MCHC 32.2 RDW 16.2 H Plt Count 236 MPV 10.5 H Immature Gran % (Auto) 0.4 Neut % (Auto) 54.5 Lymph % (Auto) 27.5 [place] % (Auto) 12.7 H Eos % (Auto) 4.0 Baso % (Auto) 0.9 Lymph # (Auto) 1.91 [place] # (Auto) 0.9 H Eos # (Auto) 0.3 Baso # (Auto) 0.1 Abs Immat Gran (auto) 0.03 Absolute Neuts (auto) 3.8 Absolute Nucleated RBC 0.000 Nucleated RBC % 0.0 Sodium 136 L Potassium 4.7 Chloride 105 Carbon Dioxide 26 Anion Gap 5 BUN 30 H Creatinine 1.36 H Estim Creat Clear Calc 40 Estimated GFR 50 L Glucose 97 Calcium 8.6 Magnesium 2.2 Total Bilirubin 0.5 AST 57 ALT 43 Alkaline Phosphatase 107 Total Protein 6.0 L Albumin 3.1 L
[2025-02-22] MEDS: FERROUS SULFATE 325 MG TABLET DR PO ×2 (13:41→18:11)
[2025-02-22] MEDS: oxyBUTYnin CHLORIDE XL 5 MG TAB.ER.24 15 MG PO (20:01)
[2025-02-22] MEDS: TAMSULOSIN HCL 0.4 MG CAPSULE PO (20:02)
[2025-02-22] MEDS: DONEPEZIL HCL 10 MG TABLET PO (20:02)
[2025-02-22] MEDS: ACETAMINOPHEN 325 MG TABLET 650 MG PO (21:59)
[2025-02-22] MEDS: MELATONIN 5 MG TABLET 10 MG PO (22:00)
[2025-02-23] VITALS (7 sets, daily range): BP systolic 98–113; BP diastolic 52–72; PULSE 46–58; RESP 16–20; TEMP 35.8–36.4; O2SAT 98–100
[2025-02-23] MEDS: HYDROcodone/acetaminophen (*CRX) 5-325 MG TABLET 1 TAB PO ×2 (04:16→14:13)
[2025-02-23] MEDS: LEVOTHYROXINE SODIUM 75 MCG TABLET PO (05:31)
[2025-02-23] MEDS: AMOXICILLIN 500 MG CAPSULE PO ×3 (05:31→21:17)
[2025-02-23] MEDS: LEVOTHYROXINE SODIUM 100 MCG TABLET PO (05:32)
[2025-02-23 07:20] LABS: Basophils Absolute Auto 0.1 K/mm3 (0.0-0.1); Basophils Percent Auto 0.9 % (0.2-1.2); Eosinophils Absolute Auto 0.6 K/mm3 (0-0.3); Eosinophils Percent Auto 8.1 % (0-4.4); Hematocrit 38.8 % (42.0-52.0); Hemoglobin 12.9 g/dL (14.0-18.0); Immature Granulocyte Absolute 0.04 K/mm3 (0.00-0.031); Immature Granulocyte Percent A 0.6 % (0-0.5); Lymphocytes Absolute Auto 1.66 K/mm3 (0.9-3.2); Lymphocytes Percent Auto 24.4 % (18.3-44.2); Mean Corpuscular HGB Conc 33.2 g/dl (32-36); Mean Corpuscular Hemoglobin 31.6 pg (26-34); Mean Corpuscular Volume 95.1 fl (80-100); Mean Platelet Volume 10.2 fl (7.4-10.4); Monocytes Absolute Auto 0.8 K/mm3 (0.1-0.6); Monocytes Percent Auto 11.5 % (2.6-8.5); Neutrophils Absolute Auto 3.7 K/mm3 (1.3-6.7); Neutrophils Percent Auto 54.5 % (45.5-73.1); Platelet Count Result 268 k/mm3 (150-375); Red Blood Count 4.08 M/mm3 (4.6-6.20); Red Cell Distribution Width 16.3 % (11.5-14.5); White Blood Count 6.8 K/mm3 (4.5-10.0)
[2025-02-23 07:31] LABS: Alanine Aminotransferase 48 U/L (6-50); Albumin Level 3.3 g/dL (3.5-5.1); Alkaline Phosphatase 115 U/L (38-126); Anion Gap 7 mmol/L (4-12); Aspartate Amino Transferase 53 U/L (17-59); Bilirubin,Total 0.5 mg/dL (0.2-1.3); Blood Urea Nitrogen 32 mg/dL (9-20); Carbon Dioxide 27 mmol/L (22-30); Chloride 103 mmol/L (98-107); Estimated CRCL calculation 39 ml/min; Estimated Glomerular Filt Rate 48; Glucose 101 mg/dL (65-110); Magnesium 2.3 mg/dL (1.6-2.3); Potassium 4.5 mmol/L (3.4-5.0); Sodium 137 mmol/L (137-145)
--- NOTE | 2025-02-23 07:42 | P.PNGS_ITS ---
Progress Note: A&P Assessment and Plan (1) Hematoma of left lower leg: Code(s): S80.12XA - Contusion of left lower leg, initial encounter Status: Acute Assessment and Plan: Doing well after evacuation 02/20/2025. Wound VAC change later today. Continue present treatment Subjective Subjective Date/Time Seen: 02/23/25 07:42 Patient reports: no new complaints and afebrile Exam Extrem: Left lower extremity: lower leg (Wound VAC in place, working well.) Details: no localized swelling, no pitting edema and no crepitus Objective Data Vital Signs Vital Signs: Vital Signs - 24 hr 02/22/25 08:00 02/22/25 08:00 02/22/25 10:00 Temperature 35.8 C L Pulse Rate 57 L 54 L Respiratory Rate 16 Blood Pressure 112/51 L Pulse Oximetry 100 Oxygen Delivery Room Air 02/22/25 12:00 02/22/25 16:00 02/22/25 20:00 Temperature 36.2 C L 36.4 C 36.3 C L Pulse Rate 59 L 78 51 L Respiratory Rate 16 18 20 Blood Pressure 118/58 L 124/70 100/55 L Pulse Oximetry 100 99 100 Oxygen Delivery 02/22/25 20:04 02/22/25 20:07 Temperature Pulse Rate 56 L Respiratory Rate Blood Pressure Pulse Oximetry 97 Oxygen Delivery Room Air Intake/Output Intake/Output: Intake & Output 02/20/25 02/21/25 02/22/25 02/23/25 23:59 23:59 23:59 23:59 Intake Total 50 1620 2144 Output Total 2600 2400 3100 [id number] [phone] Meds/Results Medications: Active Medications Generic Name Dose Route Start Last Admin Trade Name Freq PRN Reason Stop Dose Admin Acetaminophen 650 mg 02/16/25 03:09 02/22/25 21:59 Acetaminophen 325 Mg Tablet PO 650 mg Q6H PRN Administration Mild Pain (1-3) or Fever Hydrocodone Bitart/Acetaminophen 1 tab 02/20/25 18:21 02/23/25 04:16 Hydrocodone/Acetaminophen (*Crx) 5-325 Mg Tablet PO 1 tab Q4H PRN Administration Pain Rated 4-6 Amoxicillin 500 mg 02/19/25 13:00 02/23/25 05:31 Amoxicillin 500 Mg Capsule PO 500 mg Q8HR AIMEE Administration Artificial Tears 1 drop 02/18/25 10:10 02/18/25 12:06 Artificial Tears Ophth Soln 15 Ml Bottle EACH EYE 1 drop QID PRN Administration Dry Eye(s) Aspirin 81 mg 02/16/25 11:30 02/22/25 09:57 Aspirin 81 Mg Chewable Tablet PO 81 mg DAILY AIMEE Administration Donepezil HCl 10 mg 02/16/25 21:00 02/22/25 20:02 Donepezil Hcl 10 Mg Tablet PO 10 mg QHS AIMEE Administration Doxycycline Hyclate 100 mg 02/19/25 10:00 02/22/25 20:02 Doxycycline Hyclate 100 Mg Tablet PO 100 mg Q12HR AIMEE Administration Enoxaparin Sodium 40 mg 02/17/25 09:00 02/22/25 09:59 Enoxaparin 40 Mg/0.4 Ml Syringe SUB-Q 40 mg DAILY AIMEE Administration Ferrous Sulfate 325 mg 02/21/25 17:00 02/22/25 18:11 Ferrous Sulfate [address] PO 325 mg BID@1200,1700 AIMEE Administration Furosemide 20 mg 02/22/25 09:00 Furosemide 20 Mg Tablet PO DAILY AIMEE Gabapentin 600 mg 02/16/25 13:00 02/22/25 18:11 Gabapentin 300 Mg Capsule PO 600 mg TID AIMEE Administration Guaifenesin 600 mg 02/16/25 10:40 02/22/25 20:01 Guaifenesin 12 Hr 600 Mg Tabcr PO 02/23/25 10:39 600 mg Q12HR AIMEE Administration Guaifenesin/Dextromethorphan 10 ml 02/17/25 13:48 02/22/25 18:12 Guaifenesin/Dextromethorphan 10 Ml Udc PO 10 ml Q4H PRN Administration Cough Levothyroxine Sodium 100 mcg 02/23/25 06:30 02/23/25 05:32 Levothyroxine Sodium 100 Mcg Tablet PO 100 mcg DAILY@0630 AIMEE Administration Levothyroxine Sodium 75 mcg 02/23/25 06:30 02/23/25 05:31 Levothyroxine Sodium 75 Mcg Tablet PO 75 mcg DAILY@0630 AIMEE Administration Loratadine 10 mg 02/16/25 09:00 02/22/25 09:58 Loratadine 10 Mg Tablet PO 10 mg DAILY AIMEE Administration Losartan Potassium 12.5 mg 02/16/25 11:30 02/22/25 09:57 Losartan Potassium 12.5 Mg Tablet PO 12.5 mg DAILY AIMEE Administration Melatonin 10 mg 02/18/25 21:00 02/22/25 22:00 Melatonin 5 Mg Tablet PO 10 mg HS AIMEE Administration Metoprolol Tartrate 12.5 mg 02/16/25 11:30 02/22/25 20:04 Metoprolol Tartrate 12.5 Mg Tablet PO 12.5 mg Q12HR AIMEE Administration Mirabegron 25 mg 02/16/25 11:30 02/22/25 09:57 Mirabegron 25 Mg Er Tablet PO 25 mg DAILY AIMEE Administration Miscellaneous Information 1 each 02/22/25 00:01 Home Furosemide Order Says To Hold Till Provider Says It Is Okay To Take Again. Patient [place] XX 03/24/25 00:00 CLARIFY AIMEE Nitroglycerin 0.4 mg 02/16/25 10:38 Nitroglycerin Sl 0.4 Mg Tablet SUBLINGUAL Q5MIN PRN Chest Pain Oxybutynin Chloride 15 mg 02/16/25 21:00 02/22/25 20:01 Oxybutynin Chloride Xl 5 Mg Tab.Er.24 PO 15 mg HS AIMEE Administration Pantoprazole Sodium 40 mg 02/16/25 11:30 02/22/25 20:01 Pantoprazole 40 Mg Tablet PO 40 mg Q12HR AIMEE Administration Paroxetine HCl 20 mg 02/17/25 09:00 02/22/25 09:57 Paroxetine 20 Mg Tablet PO 20 mg QAM AIMEE Administration Polyethylene Glycol 17 gm 02/16/25 10:43 Polyethylene Glycol 3350 17 Gm Powd.Pack PO QAM PRN Constipation Rosuvastatin Calcium 40 mg 02/16/25 11:30 02/22/25 09:57 Rosuvastatin 20 Mg Tablet PO 40 mg DAILY AMIEE Administration Tamsulosin HCl 0.4 mg 02/16/25 21:00 02/22/25 20:02 Tamsulosin Hcl 0.4 Mg Capsule PO 0.4 mg HS AIMEE Administration Ticagrelor 90 mg 02/16/25 11:30 02/22/25 20:01 Ticagrelor 90 Mg Tablet PO 90 mg Q12HR AIMEE Administration Tizanidine HCl 2 mg 02/22/25 07:31 Tizanidine Hcl 2 Mg Tablet PO Q8H PRN Muscle Pain Tramadol HCl 50 mg 02/19/25 09:14 02/20/25 21:11 Tramadol Hcl (*Crx) 50 Mg Tablet PO 50 mg Q6H PRN Administration Pain Rated 4-6 Triamcinolone Acetonide 1 applic 02/22/25 09:00 02/22/25 09:59 Triamcinolone Acet 0.1% Oint 15 Gm Tube TOPICAL 1 applic DAILY PRN Administration itching Vitamin D 2,000 units 02/16/25 11:30 02/22/25 09:57 Cholecalciferol 1,000 Units Tablet PO 2,000 units DAILY AIMEE Administration Radiology Results: ITS Impressions Foot X-Ray 02/15/25 20:31 IMPRESSION: Unremarkable radiographic evaluation of the left foot, as detailed Tibia/Fibula X-Ray 02/15/25 20:32 IMPRESSION: 3 cm soft tissue density within the lower third of the anterior lower extremity, as detailed above. No acute fracture. Chest X-Ray 02/16/25 12:39 Impression: Clear lungs. Postsurgical change and hiatal hernia, stable from prior exam. Lower Extremity CT 02/19/25 15:25 IMPRESSION: 1. 5.5 x 2.0 x 1.4 cm lenticular lesion in the subcutaneous fat at the anterior mid to distal left lower leg most likely representing complex fluid and either a hematoma or abscess in the appropriate clinical setting. Labs Labs: Laboratory Results - last 24 hr 02/23/25 06:59 WBC 6.8 RBC 4.08 L Hgb 12.9 L Hct 38.8 L MCV 95.1 MCH 31.6 MCHC 33.2 RDW 16.3 H Plt Count 268 MPV 10.2 Immature Gran % (Auto) 0.6 H Neut % (Auto) 54.5 Lymph % (Auto) 24.4 [place] % (Auto) 11.5 H Eos % (Auto) 8.1 H Baso % (Auto) 0.9 Lymph # (Auto) 1.66 [place] # (Auto) 0.8 H Eos # (Auto) 0.6 H Baso # (Auto) 0.1 Abs Immat Gran (auto) 0.04 H Absolute Neuts (auto) 3.7 Absolute Nucleated RBC 0.000 Nucleated RBC % 0.0 Sodium 137 Potassium 4.5 Chloride 103 Carbon Dioxide 27 Anion Gap 7 BUN 32 H Creatinine 1.41 H Estim Creat Clear Calc 39 Estimated GFR 48 L Glucose 101 Calcium 9.0 Magnesium 2.3 Total Bilirubin 0.5 AST 53 ALT 48 Alkaline Phosphatase 115 Total Protein 7.0 Albumin 3.3 L
--- NOTE | 2025-02-23 09:30 | PC.NURSE ---
RN took patient's vitals at 0907 and spoke to physician, Dr. Lewis, and was told to hold medications affecting HR and BP.
[2025-02-23] MEDS: PANTOPRAZOLE 40 MG TABLET PO ×2 (09:49→21:18)
[2025-02-23] MEDS: PARoxetine 20 MG TABLET PO (09:49)
[2025-02-23] MEDS: ROSUVASTATIN 20 MG TABLET 40 MG PO (09:49)
[2025-02-23] MEDS: MIRABEGRON 25 MG ER TABLET PO (09:49)
[2025-02-23] MEDS: ASPIRIN 81 MG CHEWABLE TABLET PO (09:49)
[2025-02-23] MEDS: DOXYCYCLINE HYCLATE 100 MG TABLET PO ×2 (09:49→21:17)
[2025-02-23] MEDS: ENOXAPARIN 40 MG/0.4 ML SYRINGE SUB-Q (09:50)
[2025-02-23] MEDS: CHOLECALCIFEROL 1,000 UNITS TABLET 2000 UNITS PO (09:50)
[2025-02-23] MEDS: LORATADINE 10 MG TABLET PO (09:50)
[2025-02-23] MEDS: GABAPENTIN 300 MG CAPSULE 600 MG PO ×3 (09:50→17:20)
[2025-02-23] MEDS: guaiFENesin 12 HR 600 MG TABCR PO (09:50)
[2025-02-23] MEDS: TICAGRELOR 90 MG TABLET PO ×2 (09:50→21:18)
[2025-02-23] MEDS: FERROUS SULFATE 325 MG TABLET DR PO ×2 (14:14→17:21)
--- NOTE | 2025-02-23 14:52 | P.PNIM_ITS ---
Progress Note: A&P Assessment and Plan (1) Falls frequently: Code(s): R29.6 - Repeated falls Status: Acute Assessment and Plan: * PT/OT (2) Weakness: Code(s): R53.1 - Weakness Status: Acute Assessment and Plan: * PT/OT (3) LISA (acute kidney injury): Code(s): N17.9 - Acute kidney failure, unspecified Status: Acute Assessment and Plan: * worsening * hold lasix and losartan. * Continue to trend. * Avoid NSAIDS. (4) Cellulitis of left lower leg: Code(s): L03.116 - Cellulitis of left lower limb Status: Acute Assessment and Plan: * S/P Incision and drainage of left lower extremity hematoma with excisional debridement of nonviable skin placement of wound VAC. * Plan for wound VAC change today * Amoxicillin 500 mg PO q8 and Doxycycline 100 mg PO q12. * Monitor site. * Afebrile. * Wound culture no growth. * Wound care on borad * LLE CT with contrast showed: IMPRESSION: 1. 5.5 x 2.0 x 1.4 cm lenticular lesion in the subcutaneous fat at the anterior mid to distal left lower leg most likely representing complex fluid and either a hematoma or abscess in the appropriate clinical setting. * Surgery team on board * Pain regimen. (5) UTI (urinary tract infection): Qualifiers: Hematuria presence: without hematuria Urinary tract infection type: acute cystitis Qualified Code(s): N30.00 - Acute cystitis without hematuria Code(s): N39.0 - Urinary tract infection, site not specified Status: Acute Assessment and Plan: * Urine grew Enterococcus Species. * Amoxicillin 500 mg PO q 8. * Afebrile, WBC 8.0. (6) Shoulder pain, bilateral: Code(s): M25.511 - Pain in right shoulder; M25.512 - Pain in left shoulder Status: Acute Assessment and Plan: * Acetaminophen 650 mg PO q 6 PRN. (7) Hypothyroidism: Code(s): E03.9 - Hypothyroidism, unspecified Status: Acute Assessment and Plan: * TSH <0.015, Free T4 2.49. * Decreased Levothyroxine to 150 mcg PO daily. (8) Insomnia: Code(s): G47.00 - Insomnia, unspecified Status: Acute Assessment and Plan: * Melatonin 10 mg PO QHS. (9) Bradycardia: Code(s): R00.1 - Bradycardia, unspecified Status: Acute Assessment and Plan: will hold Metoprolol continue to monitor Vital sign Q4h Subjective Date/time seen: 02/23/25 14:52 Interval history: 02/21/25 Patient is feeling fine. Underwent Incision and drainage of left lower extremity hematoma with excisional debridement of nonviable skin placement of wound VAC 02/20/25. Patient denies chest pain, palpitations, headache, dizziness, nausea, or vomiting. Surgery team on board. Plan for changing wound VAC on Wednesday02/22/25 patient was seen and examined at bedside. he is feeling fine. no acute event overnight. plan for wound vac change tomorrow. 02/23/25 Patient ws seen and examined at bedside. he is feeling fine, denies any chest p ain, SOb, abd pain, N/V. plan for wound vac exchange today. Had soft BP and bradycardia Ht 47. Will hold Metoprolol and Losartan. patient also has Lisa, will hold losratan and lasix. will continue to monitor he was not approved for rehab. Review of Systems Review of Systems: All systems reviewed & are unremarkable except as noted in HPI and below Exam Const: General: comfortable, no acute distress and uncomfortable Eyes: Sclera: sclerae normal Pupils: Equal, round and reactive pupils present Resp: Effort & Inspection: normal respiratory effort Auscultation: clear to auscultation bilaterally Cardio: Rate: regular rate Rhythm: regular rhythm GI: Auscultation: normal bowel sounds Neuro: Cranial nerves: Yes Equal, round and reactive pupils present Speech: normal speech Extrem: Other: 1+ edema to LLE. wound VAC in place Psych: Mental Status: mental status grossly normal Affect: normal affect Objective Data Vital Signs Vital Signs: Vital Signs - 24 hr 02/22/25 16:00 02/22/25 20:00 02/22/25 20:04 Temperature 97.6 F 97.4 F L Pulse Rate 78 51 L 56 L Respiratory Rate 18 20 Blood Pressure 124/70 100/55 L Pulse Oximetry 99 100 Oxygen Delivery 02/22/25 20:07 02/23/25 07:00 02/23/25 09:07 Temperature 97.5 F L Pulse Rate 46 L Respiratory Rate 20 Blood Pressure 98/52 L Pulse Oximetry 97 98 Oxygen Delivery Room Air Room Air 02/23/25 09:07 02/23/25 12:00 Temperature 97.4 F L 96.8 F L Pulse Rate 47 L 53 L Respiratory Rate 18 18 Blood Pressure 113/72 108/65 Pulse Oximetry 99 100 Oxygen Delivery Intake/Output Intake/Output: Intake & Output 02/20/25 02/21/25 02/22/25 02/23/25 23:59 23:59 23:59 23:59 Intake Total 50 1620 2144 1314 Output Total 2600 2400 3100 1900 [facility] [phone] Meds/Results Medications: Active Medications Generic Name Dose Route Start Last Admin Trade Name Freq PRN Reason Stop Dose Admin Acetaminophen 650 mg 02/16/25 03:09 02/22/25 21:59 Acetaminophen 325 Mg Tablet PO 650 mg Q6H PRN Administration Mild Pain (1-3) or Fever Hydrocodone Bitart/Acetaminophen 1 tab 02/20/25 18:21 02/23/25 14:13 Hydrocodone/Acetaminophen (*Crx) 5-325 Mg Tablet PO 1 tab Q4H PRN Administration Pain Rated 4-6 Amoxicillin 500 mg 02/19/25 13:00 02/23/25 14:14 Amoxicillin 500 Mg Capsule PO 500 mg Q8HR AIMEE Administration Artificial Tears 1 drop 02/18/25 10:10 02/18/25 12:06 Artificial Tears Ophth Soln 15 Ml Bottle EACH EYE 1 drop QID PRN Administration Dry Eye(s) Aspirin 81 mg 02/16/25 11:30 02/23/25 09:49 Aspirin 81 Mg Chewable Tablet PO 81 mg DAILY AIMEE Administration Donepezil HCl 10 mg 02/16/25 21:00 02/22/25 20:02 Donepezil Hcl 10 Mg Tablet PO 10 mg QHS AIMEE Administration Doxycycline Hyclate 100 mg 02/19/25 10:00 02/23/25 09:49 Doxycycline Hyclate 100 Mg Tablet PO 100 mg Q12HR AIMEE Administration Enoxaparin Sodium 40 mg 02/17/25 09:00 02/23/25 09:50 Enoxaparin 40 Mg/0.4 Ml Syringe SUB-Q 40 mg DAILY AIMEE Administration Ferrous Sulfate 325 mg 02/21/25 17:00 02/23/25 14:14 Ferrous Sulfate [address] PO 325 mg BID@1200,1700 AIMEE Administration Furosemide 20 mg 02/22/25 09:00 Furosemide 20 Mg Tablet PO DAILY AIMEE Gabapentin 600 mg 02/16/25 13:00 02/23/25 14:14 Gabapentin 300 Mg Capsule PO 600 mg TID AIMEE Administration Guaifenesin/Dextromethorphan 10 ml 02/17/25 13:48 02/22/25 18:12 Guaifenesin/Dextromethorphan 10 Ml Udc PO 10 ml Q4H PRN Administration Cough Levothyroxine Sodium 100 mcg 02/23/25 06:30 02/23/25 05:32 Levothyroxine Sodium 100 Mcg Tablet PO 100 mcg DAILY@0630 AIMEE Administration Levothyroxine Sodium 75 mcg 02/23/25 06:30 02/23/25 05:31 Levothyroxine Sodium 75 Mcg Tablet PO 75 mcg DAILY@0630 AIMEE Administration Loratadine 10 mg 02/16/25 09:00 02/23/25 09:50 Loratadine 10 Mg Tablet PO 10 mg DAILY AIMEE Administration Losartan Potassium 12.5 mg 02/16/25 11:30 02/22/25 09:57 Losartan Potassium 12.5 Mg Tablet PO 12.5 mg DAILY AIMEE Administration Melatonin 10 mg 02/18/25 21:00 02/22/25 22:00 Melatonin 5 Mg Tablet PO 10 mg HS AIMEE Administration Metoprolol Tartrate 12.5 mg 02/16/25 11:30 02/22/25 20:04 Metoprolol Tartrate 12.5 Mg Tablet PO 12.5 mg Q12HR AIMEE Administration Mirabegron 25 mg 02/16/25 11:30 02/23/25 09:49 Mirabegron 25 Mg Er Tablet PO 25 mg DAILY AIMEE Administration Miscellaneous Information 1 each 02/22/25 00:01 Home Furosemide Order Says To Hold Till Provider Says It Is Okay To Take Again. Patient Chester XX 03/24/25 00:00 CLARIFY AIMEE Nitroglycerin 0.4 mg 02/16/25 10:38 Nitroglycerin Sl 0.4 Mg Tablet SUBLINGUAL Q5MIN PRN Chest Pain Oxybutynin Chloride 15 mg 02/16/25 21:00 02/22/25 20:01 Oxybutynin Chloride Xl 5 Mg Tab.Er.24 PO 15 mg HS AIMEE Administration Pantoprazole Sodium 40 mg 02/16/25 11:30 02/23/25 09:49 Pantoprazole 40 Mg Tablet PO 40 mg Q12HR AIMEE Administration Paroxetine HCl 20 mg 02/17/25 09:00 02/23/25 09:49 Paroxetine 20 Mg Tablet PO 20 mg QAM AIMEE Administration Polyethylene Glycol 17 gm 02/16/25 10:43 Polyethylene Glycol 3350 17 Gm Powd.Pack PO QAM PRN Constipation Rosuvastatin Calcium 40 mg 02/16/25 11:30 02/23/25 09:49 Rosuvastatin 20 Mg Tablet PO 40 mg DAILY AIMEE Administration Tamsulosin HCl 0.4 mg 02/16/25 21:00 02/22/25 20:02 Tamsulosin Hcl 0.4 Mg Capsule PO 0.4 mg HS AIMEE Administration Ticagrelor 90 mg 02/16/25 11:30 02/23/25 09:50 Ticagrelor 90 Mg Tablet PO 90 mg Q12HR AIMEE Administration Tizanidine HCl 2 mg 02/22/25 07:31 Tizanidine Hcl 2 Mg Tablet PO Q8H PRN Muscle Pain Tramadol HCl 50 mg 02/19/25 09:14 02/20/25 21:11 Tramadol Hcl (*Crx) 50 Mg Tablet PO 50 mg Q6H PRN Administration Pain Rated 4-6 Triamcinolone Acetonide 1 applic 02/22/25 09:00 02/22/25 09:59 Triamcinolone Acet 0.1% Oint 15 Gm Tube TOPICAL 1 applic DAILY PRN Administration itching Vitamin D 2,000 units 02/16/25 11:30 02/23/25 09:50 Cholecalciferol 1,000 Units Tablet PO 2,000 units DAILY AIMEE Administration Radiology Results: ITS Impressions Foot X-Ray 02/15/25 20:31 IMPRESSION: Unremarkable radiographic evaluation of the left foot, as detailed Tibia/Fibula X-Ray 02/15/25 20:32 IMPRESSION: 3 cm soft tissue density within the lower third of the anterior lower extremity, as detailed above. No acute fracture. Chest X-Ray 02/16/25 12:39 Impression: Clear lungs. Postsurgical change and hiatal hernia, stable from prior exam. Lower Extremity CT 02/19/25 15:25 IMPRESSION: 1. 5.5 x 2.0 x 1.4 cm lenticular lesion in the subcutaneous fat at the anterior mid to distal left lower leg most likely representing complex fluid and either a hematoma or abscess in the appropriate clinical setting. Labs Labs: Laboratory Results - last 24 hr 02/23/25 06:59 WBC 6.8 RBC 4.08 L Hgb 12.9 L Hct 38.8 L MCV 95.1 MCH 31.6 MCHC 33.2 RDW 16.3 H Plt Count 268 MPV 10.2 Immature Gran % (Auto) 0.6 H Neut % (Auto) 54.5 Lymph % (Auto) 24.4 [place] % (Auto) 11.5 H Eos % (Auto) 8.1 H Baso % (Auto) 0.9 Lymph # (Auto) 1.66 [place] # (Auto) 0.8 H Eos # (Auto) 0.6 H Baso # (Auto) 0.1 Abs Immat Gran (auto) 0.04 H Absolute Neuts (auto) 3.7 Absolute Nucleated RBC 0.000 Nucleated RBC % 0.0 Sodium 137 Potassium 4.5 Chloride 103 Carbon Dioxide 27 Anion Gap 7 BUN 32 H Creatinine 1.41 H Estim Creat Clear Calc 39 Estimated GFR 48 L Glucose 101 Calcium 9.0 Magnesium 2.3 Total Bilirubin 0.5 AST 53 ALT 48 Alkaline Phosphatase 115 Total Protein 7.0 Albumin 3.3 L Quality VTE Prophylaxis VTE prophylaxis: pharmacologic ordered
[2025-02-23] MEDS: oxyBUTYnin CHLORIDE XL 5 MG TAB.ER.24 15 MG PO (21:17)
[2025-02-23] MEDS: TAMSULOSIN HCL 0.4 MG CAPSULE PO (21:17)
[2025-02-23] MEDS: ACETAMINOPHEN 325 MG TABLET 650 MG PO (21:18)
[2025-02-23] MEDS: DONEPEZIL HCL 10 MG TABLET PO (21:18)
[2025-02-23] MEDS: MELATONIN 5 MG TABLET 10 MG PO (21:18)
[2025-02-23] MEDS: METOPROLOL TARTRATE 12.5 MG TABLET PO (21:19)
[2025-02-24] MEDS: HYDROcodone/acetaminophen (*CRX) 5-325 MG TABLET 1 TAB PO (02:43)
[2025-02-24 05:12] VITALS: BP 101/51; PULSE 50; RESP 16; TEMP 36.6; O2SAT 99
[2025-02-24 05:32] LABS: Basophils Absolute Auto 0.1 K/mm3 (0.0-0.1); Basophils Percent Auto 0.8 % (0.2-1.2); Eosinophils Absolute Auto 0.6 K/mm3 (0-0.3); Eosinophils Percent Auto 8.8 % (0-4.4); Hematocrit 35.8 % (42.0-52.0); Hemoglobin 11.7 g/dL (14.0-18.0); Immature Granulocyte Absolute 0.02 K/mm3 (0.00-0.031); Immature Granulocyte Percent A 0.3 % (0-0.5); Lymphocytes Absolute Auto 1.67 K/mm3 (0.9-3.2); Lymphocytes Percent Auto 26.4 % (18.3-44.2); Mean Corpuscular HGB Conc 32.7 g/dl (32-36); Mean Corpuscular Hemoglobin 31.5 pg (26-34); Mean Corpuscular Volume 96.5 fl (80-100); Mean Platelet Volume 10.2 fl (7.4-10.4); Neutrophils Absolute Auto 3.1 K/mm3 (1.3-6.7); Neutrophils Percent Auto 48.7 % (45.5-73.1); Platelet Count Result 241 k/mm3 (150-375); Red Blood Count 3.71 M/mm3 (4.6-6.20); Red Cell Distribution Width 16.3 % (11.5-14.5); White Blood Count 6.3 K/mm3 (4.5-10.0)
[2025-02-24] MEDS: LEVOTHYROXINE SODIUM 75 MCG TABLET PO (05:33)
[2025-02-24] MEDS: LEVOTHYROXINE SODIUM 100 MCG TABLET PO (05:33)
[2025-02-24] MEDS: AMOXICILLIN 500 MG CAPSULE PO (05:34)
[2025-02-24 05:46] LABS: Alanine Aminotransferase 41 U/L (6-50); Alkaline Phosphatase 94 U/L (38-126); Anion Gap 3 mmol/L (4-12); Aspartate Amino Transferase 44 U/L (17-59); Bilirubin,Total 0.4 mg/dL (0.2-1.3); Blood Urea Nitrogen 33 mg/dL (9-20); Calcium 8.5 mg/dL (8.4-10.2); Carbon Dioxide 26 mmol/L (22-30); Chloride 106 mmol/L (98-107); Estimated CRCL calculation 41 ml/min; Estimated Glomerular Filt Rate 52; Glucose 108 mg/dL (65-110); Magnesium 2.1 mg/dL (1.6-2.3); Potassium 4.5 mmol/L (3.4-5.0); Sodium 135 mmol/L (137-145)
[2025-02-24 08:59] VITALS: BP 117/58; PULSE 55; RESP 16; TEMP 36.3; O2SAT 100
[2025-02-24] MEDS: ENOXAPARIN 40 MG/0.4 ML SYRINGE SUB-Q (09:00)
[2025-02-24] MEDS: PARoxetine 20 MG TABLET PO (09:00)
[2025-02-24] MEDS: CHOLECALCIFEROL 1,000 UNITS TABLET 2000 UNITS PO (09:00)
[2025-02-24 09:01] VITALS: PULSE 55
[2025-02-24] MEDS: MIRABEGRON 25 MG ER TABLET PO (09:01)
[2025-02-24] MEDS: DOXYCYCLINE HYCLATE 100 MG TABLET PO (09:01)
[2025-02-24] MEDS: LORATADINE 10 MG TABLET PO (09:01)
[2025-02-24] MEDS: PANTOPRAZOLE 40 MG TABLET PO (09:01)
[2025-02-24] MEDS: ROSUVASTATIN 20 MG TABLET 40 MG PO (09:01)
[2025-02-24] MEDS: TICAGRELOR 90 MG TABLET PO (09:01)
[2025-02-24] MEDS: ASPIRIN 81 MG CHEWABLE TABLET PO (09:01)
[2025-02-24] MEDS: GABAPENTIN 300 MG CAPSULE 600 MG PO (09:01)
--- NOTE | 2025-02-24 09:02 | PC.NURSE ---
Dr Lewis spoke to RN and said to hold Metoprolol.
--- NOTE | 2025-02-24 11:12 | P.DS_ITS ---
DS: Admitting Diagnosis Discharge Date 02/24/25 Admitting Diagnosis L Leg hematoma, fall DS: Discharge Diagnosis Discharge Diagnosis (1) Falls frequently: Code(s): R29.6 - Repeated falls Status: Acute Assessment and Plan: * PT/OT (2) Weakness: Code(s): R53.1 - Weakness Status: Acute Assessment and Plan: * PT/OT (3) JULIETA (acute kidney injury): Code(s): N17.9 - Acute kidney failure, unspecified Status: Acute Assessment and Plan: * improving * hold losartan * Continue to trend. * Avoid NSAIDS. (4) Cellulitis of left lower leg: Code(s): L03.116 - Cellulitis of left lower limb Status: Acute Assessment and Plan: * S/P Incision and drainage of left lower extremity hematoma with excisional debridement of nonviable skin placement of wound VAC. * wound VAC dc 02/23/25 * Amoxicillin 500 mg PO q8 and Doxycycline 100 mg PO q12. * Monitor site. * Afebrile. * Wound culture no growth. * Wound care on borad * LLE CT with contrast showed: IMPRESSION: 1. 5.5 x 2.0 x 1.4 cm lenticular lesion in the subcutaneous fat at the anterior mid to distal left lower leg most likely representing complex fluid and either a hematoma or abscess in the appropriate clinical setting. * Surgery team on board * Pain regimen. (5) UTI (urinary tract infection): Qualifiers: Hematuria presence: without hematuria Urinary tract infection type: acute cystitis Qualified Code(s): N30.00 - Acute cystitis without hematuria Code(s): N39.0 - Urinary tract infection, site not specified Status: Acute Assessment and Plan: * Urine grew Enterococcus Species. * Amoxicillin 500 mg PO q 8. * Afebrile, WBC 8.0. (6) Shoulder pain, bilateral: Code(s): M25.511 - Pain in right shoulder; M25.512 - Pain in left shoulder Status: Acute Assessment and Plan: * Acetaminophen 650 mg PO q 6 PRN. (7) Hypothyroidism: Code(s): E03.9 - Hypothyroidism, unspecified Status: Acute Assessment and Plan: * TSH <0.015, Free T4 2.49. * Decreased Levothyroxine to 150 mcg PO daily. (8) Insomnia: Code(s): G47.00 - Insomnia, unspecified Status: Acute Assessment and Plan: * Melatonin 10 mg PO QHS. (9) Bradycardia: Code(s): R00.1 - Bradycardia, unspecified Status: Acute Assessment and Plan: will hold Metoprolol continue to monitor Vital sign Q4h DS: Summary Hospital Course Hospital Course: per HPI: Patient is an 79 year old male that came to the hospital with weakness and falls. Patient denies chest pain, palpitations, headache, dizziness, nausea, or vomiting. Patient reports dyspnea on exertion and cough with green and harper sputum. Patient reports that he needs to have his left knee replaced but cannot have it done right now. Patient reports that his left knee gives out but most of the time he can catch himself. He has tried wearing a brace on his left knee but it did not help. Patient reports that he fell at cardiac rehab on 02/06 over the top of his rollator walker and hit his left leg developing a blood blister. Patient reports pain in bilateral shoulders is a 5 , frequent, and throbbing. Patient reports little use of left arm/hand since stroke. Patient able to move left leg well per patient. Patient reports numbness and tingling at times in hands and feet. ER workup showed: H&H 11.4/34.9, Creatinine 1.62. Urine cloudy, 2+ protein, 1+ glucose, 3+ blood, 2+ leukocytes, RBC 6-10, WBC 21-50. Hepatitis panel negative. ER deroof the patient's bulla and send for cultures. 02/24/25 patient was admitted and treated for L Leg hematoma/cellulitis and UTI. surgery team was consulted. * S/P Incision and drainage of left lower extremity hematoma with excisional debridement of nonviable skin placement of wound VAC. wound vac was discontinued on 02/23/25. patient needs to change dressing as instructed, Home health will see the patient tomorrow. * patient also had UTI positive for enterococci and is on Amicycline. * patient had bradycardia and hypotension even. holding losartan and metoprolol. discussed with patient about checking BP and heart rate at home and follow with cardiology as outpatient. * insurance denied Rehab. will discharge patient to home with home health. Status at Discharge Overall status at discharge: patient is progressing back to baseline Time Spent with Patient Time attestation: Total time spent providing and/or coordinating discharge services: Time spent: Greater than 30 minutes Exam Const: General: comfortable, no acute distress and uncomfortable Eyes: Sclera: sclerae normal Pupils: Equal, round and reactive pupils present Resp: Effort & Inspection: normal respiratory effort Auscultation: clear to auscultation bilaterally Cardio: Rate: regular rate Rhythm: regular rhythm GI: Auscultation: normal bowel sounds Neuro: Cranial nerves: Yes Equal, round and reactive pupils present Speech: normal speech Extrem: Other: 1+ edema to LLE. wound VAC in place Psych: Mental Status: mental status grossly normal Affect: normal affect DS: Data Data Completed and Pending Labs on day of discharge: Labs from last 24 hours 02/24/25 05:22 WBC 6.3 RBC 3.71 L Hgb 11.7 L Hct 35.8 L MCV 96.5 MCH 31.5 MCHC 32.7 RDW 16.3 H Plt Count 241 MPV 10.2 Immature Gran % (Auto) 0.3 Neut % (Auto) 48.7 Lymph % (Auto) 26.4 [place] % (Auto) 15.0 H Eos % (Auto) 8.8 H Baso % (Auto) 0.8 Lymph # (Auto) 1.67 [place] # (Auto) 1.0 H Eos # (Auto) 0.6 H Baso # (Auto) 0.1 Abs Immat Gran (auto) 0.02 Absolute Neuts (auto) 3.1 Absolute Nucleated RBC 0.000 Nucleated RBC % 0.0 Sodium 135 L Potassium 4.5 Chloride 106 Carbon Dioxide 26 Anion Gap 3 L BUN 33 H Creatinine 1.32 H Estim Creat Clear Calc 41 Estimated GFR 52 L Glucose 108 Calcium 8.5 Magnesium 2.1 Total Bilirubin 0.4 AST 44 ALT 41 Alkaline Phosphatase 94 Total Protein 6.0 L Albumin 3.0 L Discharge Plan Discharge Attending physician on discharge: Deborah Lewis Consulting providers: Aravind Syed Discharging Clinician: Deborah Lewis Anticipated Discharge Date/Time: 02/24/25 11:22 Patient Disposition: Home with Home Health Service Activity: as tolerated Diet: heart healthy Wound Care Instructions: change dressing daily Discharge Instructions: Per Care Coordination: [facility] ([phone])at discharge for RN/PT/OT and wound vac management . Agency will call patient to set up initial appointment, Wednesday, February 26, 2025. Wound care instructions: 1. Gently wash left lower leg with soap and water Once a day. 2. Lightly place strip of Aquacel Ag rope into the void in the wound bed and then place remaining rope on surface of the wound. 3. Cover with an ABD pad 4. Lightly wrap with gauze roll. Dressing should be changed every day. Wound center to contact you next week with follow up appointment with Dr. Syed, questions regarding wound care please contact Dr. Syed's office at [phone] or the wound center at [phone] Patient Instructions: Antibiotic Form Patient Language: Togolese Stand Alone Forms: General Discharge Information Follow-up/Referrals: Wolfgang Serrano MD [Primary Care Provider] - 1 Week Aravind Syed MD [Physician] - Call for Appointment Discharge Medications: New doxycycline hyclate 100 mg Tablet 100 mg PO Q12HR Qty: 8 0RF amoxicillin 500 mg Capsule 500 mg PO Q8HR Qty: 12 0RF Continued mometasone 0.1 % ointment 1 applic topical DAILY PRN (Reason: itching) Qty: 45 0RF cholecalciferol (vitamin D3) 50 mcg (2,000 unit) capsule 50 mcg PO DAILY donepezil 10 mg tablet 10 mg PO QHS cetirizine 10 mg tablet 10 mg PO DAILY clobetasol 0.05 % ointment 1 applic TOPICAL BID PRN (Reason: rash) aspirin 81 mg Tablet,Chewable 81 mg PO DAILY rosuvastatin 40 mg Tablet 40 mg PO DAILY tamsulosin 0.4 mg capsule 0.4 mg PO HS ferrous sulfate [FeroSul] 325 mg (65 mg iron) tablet 325 mg PO BID mirabegron [Myrbetriq] 25 mg tablet extended release 24 hr 25 mg PO DAILY nitroglycerin [Nitrostat] 0.4 mg Tablet, Sublingual 0.4 mg sublingual Q5MIN PRN (Reason: Chest Pain) Qty: 20 0RF dapagliflozin propanediol [Farxiga] 5 mg tablet 5 mg PO DAILY paroxetine HCl 20 mg tablet 20 mg PO QAM furosemide [Lasix] 20 mg Tablet 20 mg PO DAILY gabapentin 100 mg capsule 600 mg PO TID tizanidine 2 mg Tablet 2 mg PO Q8H PRN (Reason: Muscle Pain) oxybutynin chloride 15 mg tablet extended release 24hr 15 mg PO HS melatonin 10 mg Tablet 10 mg PO HS PRN (Reason: Sleep) pantoprazole 40 mg tablet,delayed release (DR/EC) 40 mg PO BID Qty: 60 5RF Brilinta 90 mg tablet 90 mg PO Q12HR 30 Days Qty: 60 5RF Changed levothyroxine 175 mcg capsule 100 mcg PO DAILY Qty: 30 2RF Discontinued spironolactone 25 mg tablet 25 mg PO DAILY metoprolol tartrate 25 mg tablet 12.5 mg PO Q12H Qty: 30 2RF losartan 25 mg tablet 12.5 mg PO DAILY Qty: 30 2RF Other Ambulatory Orders: Basic Metabolic Panel (Routine) Timeframe: 2 Days Location: Determined by Patient Ordered By: Deborah Lewis Date of admission: 02/16/25 07:14 Primary Care Provider: Wolfgang Serrano Admitting Provider: Silvia Fowler Attending physician on admission: Deborah Lewis Condition: Stable Care Plan Goals: follow with PCP and cardiology in one week check your blood pressure and heart rate regularly and report to PCP follow with Wound care and surgery clinic Quality VTE Prophylaxis VTE prophylaxis: pharmacologic ordered
[2025-02-24] MEDS: FERROUS SULFATE 325 MG TABLET DR PO (11:36)
== END 2025-02-24 12:20 | disposition home health service (06) | DRG 605 ==
LOC: ANHED 22:03 → ANH3MED 23:43
PROVIDERS: Nurse Practitioner Family; Surgery; Admitting Provider Internal Medicine; Emergency Provider Preventive Medicine Aerospace Medicine; PCP Family Medicine; Visit Provider Internal Medicine
PROC: 0HCLXZZ Extirpation of Matter from Left Lower Leg Skin, External Approach (ICD-10-PCS; principal; 2025-02-20 17:15)
DX: S80.12XA Contusion of left lower leg, initial encounter (principal); L03.116 Cellulitis of left lower limb; I69.354 Hemiplegia and hemiparesis following cerebral infarction affecting left non-dominant side; N17.9 Acute kidney failure, unspecified; N39.0 Urinary tract infection, site not specified; W18.39XA Other fall on same level, initial encounter; B95.2 Enterococcus as the cause of diseases classified elsewhere; I25.10 Atherosclerotic heart disease of native coronary artery without angina pectoris; M25.511 Pain in right shoulder; M25.512 Pain in left shoulder; I71.43 Infrarenal abdominal aortic aneurysm, without rupture; E78.5 Hyperlipidemia, unspecified; N32.81 Overactive bladder; N40.0 Benign prostatic hyperplasia without lower urinary tract symptoms; K21.9 Gastro-esophageal reflux disease without esophagitis; E03.9 Hypothyroidism, unspecified; K22.5 Diverticulum of esophagus, acquired; K57.90 Diverticulosis of intestine, part unspecified, without perforation or abscess without bleeding; I35.0 Nonrheumatic aortic (valve) stenosis; D64.9 Anemia, unspecified; G47.00 Insomnia, unspecified; Z96.651 Presence of right artificial knee joint; Z87.891 Personal history of nicotine dependence; R29.6 Repeated falls; F03.90 Unspecified dementia, unspecified severity, without behavioral disturbance, psychotic disturbance, mood disturbance, and anxiety; R00.1 Bradycardia, unspecified; I95.9 Hypotension, unspecified
CPT/HCPCS: 36415; 71045; 73590; 73630; 73701; 80048; 80053; 81001; 83036; 83735; 83880; 84439; 84443; 85025; 87070; 87075; 87086; 87181; 87205; 96361; 96365; 97110; 97116; 97161; 97165; 97530; 97535; 99285; A9270; G0378; J0696; J1100; J1171; J1650; J2003; J2004; J2405; J2704; J3010; J7030; J7120; Q9967

== ENCOUNTER 2025-02-26 12:03 | Outpatient (NON) | payer MEDICARE, MEDICAID, SELFPAY ==
--- OUTSIDE RECORDS SUMMARY | 2025-02-26 12:12 | XMS_ITS | Encounter Summary ---
Author Organization [facility] Address [address] [place] [address] Phone Care Team Providers Care Field Assembly Supervisor Name Role Phone Santino Funk MD Primary Care Provider + Unknown, Notinfile Primary Care Provider Unavail able No, Physician Primary Care Provider [phone] Santino Funk MD Primary Care Provider + Wolfgang Serrano MD Primary Care Provider Wolfgang Serrano MD Primary Care Provider Wolfgang Serrano MD Unavailable [phone] Unknown, Notinfile Unavailable Unavailable Santino Funk MD Unavailable [phone] Chuy Enriquez MD Unavailable [phone] Luis Felipe Cedillo MD Unavailable [phone] Marlene Thornton MD Unavailable [phone] Encounter Details Date Type Department Care Team (Late st Contact Info) Description 02/15/2018 Orders Only [facility] ProviderGarett MD [address] [place] [address] Social History Tobacco Use Types Packs/Day Years Used Date Smoking Tobacco: Former Alcohol Use Standard Drinks/Week Comments Yes 0 (1 standard drink = 0.6 oz pur e alcohol) Sex and Gender Information Value Date Recorded Sex Assigned at Not on file 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 Gender Identity Not on file Sexual [...] COVID: Suspected 12/17/2021 12/17/2021 12/17/2021 10:19 PM 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 SPECIALIST documented as of this encounter Care Teams Field Assembly Supervisor Relationship Specialty [place] [id number] [facility] [place] [address] PCP - General 11/12/16 03/11/22 Unknown, Notinfile PCP - General 03/12/22 05/13/22 No, Physician PCP - General 05/14/22 09/29/22 [place] [id number] [address] [facility] [place] [address] PCP - General Internal Medicine 09/30/22 05/04/23 Wolfgang Serrano MD PCP - General Family Medicine 05/05/23 08/02/24 Wolfgang Serrano MD [address] [address] PCP - General Family Medicine 08/03/24 Wolfgang Serrano MD Family Medicine 08/03/24 Unknown, Notinfile 03/12/22 [place] [address] [place] [address] 03/12/22 Chuy Enriquez MD [address] [facility] [address] [place] [address] Consulting Physician Pulmonary Disease 10/13/23 Luis Felipe Cedillo MD [address] [facility] [address], [place] [address] Consulting Physician Gastroenterology 10/13/23 Marlene Thornton MD [address] [facility] [address], [place] [address] Surgeon Vascular Surgery 11/10/23 documented as of this encounter
--- OUTSIDE RECORDS SUMMARY | 2025-02-26 12:12 | XMS_ITS | Clinical Summary ---
Author Organization [facility] Address [address] [place] [address] Care Team Providers Care Allergist Name Role Phone Wolfgang Serrano MD Primary Care Provider [phone] Wolfgang Serrano MD Unavailable [phone] Unknown, Notinfile Unavailable Unavailable Santino Funk MD Unavailable Chuy Enriquez MD Unavailable Luis Felipe Cedlilo MD Unavailable [phone] Marlene Thornton MD Unavailable [phone] Allergies No known active allergies Medications cholecalciferol [...] 06/22/2024 Assessment & Plan (10/05/2024 9:45 AM AUTOMATIC DISPENSER MECHANIC): The patient has advanced arthritis of the [...] 2025 Assessment & Plan (11/18/2023 2:34 PM AUTOMATIC DISPENSER MECHANIC): RLL nodule in a patient without clear [...] maintenance/vaccinations Assessment & Plan (11/18/2023 2:34 PM AUTOMATIC DISPENSER MECHANIC): Related to hiatal hernia, reflux Sx are [...] (12/05/2019): Added automatically from request for surgery [id number] Subchondral insufficiency fracture of condyle of left [...] - 01/18/2025 11:59 PM CDT Hospital Encounter [facility] - [facility] [address] [place] [address] Chuy Enriquez MD Nocturnal cough; Lung nodule Discharge Disposition: Discharge to home or self care 01/15/2025 3:00 PM CDT Office Visit [facility] [place] [facility] [address] [place] [address] Medicine 12th [place] [address] [place] [address] Carolyne Funk PA Esophageal dysphagia (Primary Dx) 01/15/2025 Orders Only [facility] [place] [facility] [address] [place] [address] RMA 01/15/2025 Telephone [facility] [place] [facility] [address] [facility] [address] [place] [address] Hesham Lamb PA Med Refill 01/11/2025 Orders Only [facility] [address] [place] [address] Evaristo Matthews MD from Last [...] hx of double vision, corrective lenses Seizures ([facility]) 1997 last seizure in 1997 Asthma Cataract SOB (shortness of breath) on exertion Subchondral insufficiency fr acture of condyle of left femur ([facility]) Closed fracture of left tibi al plateau [...] knee as current injury Vertigo Alzheimer's dementia ([facility]) Diverticulitis of colon Incontinence of urine Hypothyroidism Fatigue Vision changes Easy bruisability Frequent urination Back pain Muscle weakness Cramps of lower extremity Clotting disorder Hyperlipidemia Hypertension Enlarged prostate Stroke ([facility]) 12/09/2023 left leg works o k, cannot [...] materials from doctor or pharmacy Sometimes 03/08/2024 [facility] Utilities Answer Date Recorded In the past 12 months has [employer], oil, or water [employer] threatened to shut off services in your [...] How often do you attend chur or faith services? More than 4 times [...] in a halfway (including now)? No 12/16/2023 PHQ-9 Answer Date [...] on file Legal Sex Male 3:25 PM AUTOMATIC DISPENSER MECHANIC Gender Identity Not on file Sexual Orientation Not on file Obstetrics History Last Filed Vital Signs Vital Sign Reading Time Taken Comments Blood Pressure 99/66 01/15/2025 3:11 PM CDT Pulse 59 01/15/2025 3:11 PM CDT Temperature 36.6 C (97.8 F) 01/15/2025 3:11 PM CDT Respiratory Rate 16 10/17/2024 11:19 AM AUTOMATIC DISPENSER MECHANIC Oxygen Saturation 99% 10/17/2024 11:19 AM AUTOMATIC DISPENSER MECHANIC Inhaled Oxygen Concentration - - Weight 81.6 [...] 11/12/2023, 10/11/2023 Medical Devices Implanted Type Area Compensation Coordinator Device Identifier Shelf Expiration Date Model / Serial / Lot [employer]nee [employer] 201.050 Nif - [id number] Implanted:Qty: 1 on 09/22/2018 by George Sepulveda MD at [facility] al: Knee [employer] 04/09/2020 201.050 / / [id number] Subchondroplasty Knee Kit Implanted:Qty: 1 on 09/22/2018 by George Sepulveda MD at [facility] al: Knee [employer] 11/10/2020 402.203(201.0 50) / [id number] / [id number] Description:KIT CONTAINS IMP LANT: ACCUFILL, 5ML, REF# 201.050, LOT # [id number], EX: 11-10-2020 System Accumix Bone Cement - [id number] Implanted:Qty: 1 on 09/22/2018 by George Sepulveda MD at [facility] Jim [employer]nee [employer]ations 03/28/2021 311.100 / / [id number] [employer] [id number] Palacos R+G High Viscosity Cement Bone Gentamicin Arthroplasty - [id number] Implanted:Qty: 1 on 11/24/2021 by George Sepulveda MD at [facility] Right: Knee [employer] 05/10/2024 [id number] / / [id number] [employer] [id number] Persona Cruciate Retain Knee Right 11 Narrow Component Femoral - [id number] Implanted:Qty: 1 on 11/24/2021 by George Sepulveda MD at [facility] Right: Knee [employer] 07/13/2030 [id number] / / [id number] [employer] [id number] Persona 35mm Knee Component Patellar All Poly Latex Free - [id number] Implanted:Qty: 1 on 11/24/2021 by George Sepulveda MD at [facility] Right: Knee [employer] 03/25/2029 [id number] / / [id number] [employer] [id number] Persona 14mm 30+ Mm Knee Tibia Taper Extension Stem - [id number] Implanted:Qty: 1 on 11/24/2021 by George Sepulveda MD at [facility] Right: Knee [employer] 07/27/2031 [id number] / / [id number] [employer] [id number] Persona Natural Tibia Stem Knee Right 5d G Baseplate Tibial - [id number] Implanted:Qty: 1 on 11/24/2021 by George Sepulveda MD at [facility] Right: Knee [employer] 05/13/2031 [id number] / / [id number] [employer] [id number] Persona 10mm Knee Insert Articular Vivacit-E Sterile - [id number] Implanted:Qty: 1 on 11/24/2021 by George Sepulevda MD at [facility] Right: Knee [employer] 05/06/2026 [id number] / / [id number] Procedures Procedure Name Priority Date/Time Associated Diagnosis Comments CT CHEST WO CONTRAST Schedule Routine, Read Routine (OP Routine) 01/18/2025 3:45 PM CDT Nocturnal cough Lung nodule CARDIOLOGY DOCUMENT SCAN Routine 01/06/2025 3:[address] CHEST ABDOMEN PELVIS W CONTRAST ED Urgent/IP Urgent 10/11/2023 10:12 AM AUTOMATIC DISPENSER MECHANIC from Last 3 Months or Most Recently [...] Abdomen Pelvis W Contrast (10/11/2023 10:12 AM AUTOMATIC DISPENSER MECHANIC) Anatomical Region Laterality Modality Body N/A Computed Tomogra phy 10/11/2023 11:0 3 AM AUTOMATIC DISPENSER MECHANIC Impressions 10/11/2023 11:03 AM AUTOMATIC DISPENSER MECHANIC A 12 x 12 mm pulmonary nodule in the lateral aspect of the right costophrenic sulcus, new since 2019, is suspicious for primary lung malignancy. Electronically signed by: Jayshree Giles MD, Ph.D Narrative 10/11/2023 11:03 AM AUTOMATIC DISPENSER MECHANIC EXAMINATION: Computed tomography of chest/abdomen/pelvis with intravenous [...] Health Maintenance Insurance HU[employer]NA CHOICE MEDICARE PPO Pax8 OOS MEDICARE HU[employer] CHOICE MEDICARE PPO [place] [address] [place] [address] [place] [address] * Guarantor: Abrahan Gtz Jr. Account Type Relation to Patient Date of Phone [id number]|2025-02-26 12:12:00|2025-02-26 12:12:00|XMS_ITS|BKG DAEMON|External Medical Summaries|[id number]|" Referral Summary Created on: February 26, 2025 Abrahan Gtz Jr. : 1945 Sex: Male Author Organization [facility] Address [address] [place] [address] Care Team Providers Care Allergist Name Role Phone Wolfgang Serrano MD Primary Care Provider Wolfgang Serrano MD Unavailable [phone] Unknown, Notinfile Unavailable Unavailable Santino Funk MD Unavailable Chuy Enriquez MD Unavailable [phone] Luis Felipe Cedillo MD Unavailable [phone] Marlene Thornton MD Unavailable Encounters Date Type Department Care Team Description 01/18/2025 3:17 PM CDT - 01/18/2025 11:59 PM CDT Hospital Encounter [facility] [address] [place] [address] Chuy Enriquez MD Nocturnal cough; Lung nodule Discharge Disposition: Discharge to home or self care 01/15/2025 Orders Only [facility] [place] [facility] [address] [place] [address] [address] [place] [address] RMA 01/15/2025 Telephone [facility] [place] [facility] [address] [place] [address] [address] [place] [address] Hesham Lamb PA Med Refill 01/15/2025 3:00 PM CDT Office Visit [facility] [place] [facility] [address] [facility] 12th [place] [address] [place] [address] Carolyne Funk PA Esophageal dysphagia (Primary Dx) 01/11/2025 Orders Only [facility] [address] [place] [address] Evaristo Matthews MD from Last [...] 06/22/2024 Assessment & Plan (10/05/2024 9:45 AM AUTOMATIC DISPENSER MECHANIC): The patient has advanced arthritis of the [...] 2025 Assessment & Plan (11/18/2023 2:34 PM AUTOMATIC DISPENSER MECHANIC): RLL nodule in a patient without clear [...] maintenance/vaccinations Assessment & Plan (11/18/2023 2:34 PM AUTOMATIC DISPENSER MECHANIC): Related to hiatal hernia, reflux Sx are [...] (12/05/2019): Added automatically from request for surgery [id number] Subchondral insufficiency fracture of condyle of left [...] materials from doctor or pharmacy Sometimes 03/08/2024 [facility] Utilities Answer Date Recorded In the past 12 months has [employer], [employer] [address] [employer], or water [employer] threatened to shut off services in your [...] 12/16/2023 How often do you attend [facility] or faith services? More than 4 times [...] Score 0 01/06/2024 [facility] [place] of Occupat ional Health - Occupational Stress [...] in a halfway (including now)? No 12/16/2023 PHQ-9 Answer Date [...] on file Legal Sex Male 3:25 PM AUTOMATIC DISPENSER MECHANIC Gender Identity Not on file Sexual Orientation Not on file Last Filed Vital Signs Vital Sign Reading Time Taken Comments Blood Pressure 99/66 01/15/2025 3:11 PM CDT Pulse 59 01/15/2025 3:11 PM CDT Temperature 36.6 C (97.8 F) 01/15/2025 3:11 PM CDT Respiratory Rate 16 10/17/2024 11:19 AM AUTOMATIC DISPENSER MECHANIC Oxygen Saturation 99% 10/17/2024 11:19 AM AUTOMATIC DISPENSER MECHANIC Inhaled Oxygen Concentration - - Weight 81.6 kg (180 lb) 01/15/2025 3:11 PM CDT Height 177.8 cm (5' 10 ) 01/15/2025 3:11 PM CDT Body Mass Index 25.83 01/15/2025 3:11 PM CDT Plan of Treatment Scheduled Procedures Name Priority Associated Diagnoses Date/Ti me ESOPHAGOGASTRODUODENOSCOPY Dysphagia, unspecified type Medical Devices Implanted Type Area Compensation Coordinator Device Identifier Shelf Expiration Date Model / Serial / Lot [employer] 201.050 Nif - [id number] Implanted:Qty: 1 on 09/22/2018 by George Sepulveda MD at [facility] al: Knee [employer] 04/09/2020 201.050 / / [id number] Subchondroplasty Knee Kit Implanted:Qty: 1 on 09/22/2018 by George Sepulveda MD at [facility] al: Knee [employer] 11/10/2020 402.203(201.0 50) / [id number] / [id number] Description:KIT CONTAINS IMP LANT: ACCUFILL, 5ML, REF# 201.050, LOT # [id number], EX: 11-10-2020 System Accumix Bone Cement - [id number] Implanted:Qty: 1 on 09/22/2018 by George Sepulveda MD at [facility] [employer] 03/28/2021 311.100 / / [id number] [employer] [id number] Palacos R+G High Viscosity Cement Bone Gentamicin Arthroplasty - [id number] Implanted:Qty: 1 on 11/24/2021 by George Sepulveda MD at [facility] Right: Knee [employer] 05/10/2024 [id number] / / [id number] [employer] [id number] Persona Cruciate Retain Knee Right 11 Narrow Component Femoral - [id number] Implanted:Qty: 1 on 11/24/2021 by George Sepulveda MD at [facility] Right: Knee [employer] 07/13/2030 [id number] / / [id number] [employer] [id number] Persona 35mm Knee Component Patellar All Poly Latex Free - [id number] Implanted:Qty: 1 on 11/24/2021 by George Sepulveda MD at [facility] Right: Knee [employer] 03/25/2029 [id number] / / [id number] [employer] [id number] Persona 14mm 30+ Mm Knee Tibia Taper Extension Stem - [id number] Implanted:Qty: 1 on 11/24/2021 by George Sepulveda MD at [facility] Right: Knee [employer] 07/27/2031 [id number] / / [id number] [employer] [id number] Persona Natural Tibia Stem Knee Right 5d G Baseplate Tibial - [id number] Implanted:Qty: 1 on 11/24/2021 by George Sepulveda MD at [facility] Right: Knee [employer] 05/13/2031 [id number] / / [id number] [employer] [id number] Persona 10mm Knee Insert Articular Vivacit-E Sterile - [id number] Implanted:Qty: 1 on 11/24/2021 by George Sepulveda MD at [facility] Right: Knee [employer] 05/06/2026 [id number] / / [id number] Procedures Procedure Name Priority Date/Time Associated Diagnosis Comments CT CHEST WO CONTRAST Schedule Routine, Read Routine (OP Routine) 01/18/2025 3:45 PM CDT Nocturnal cough Lung nodule CARDIOLOGY DOCUMENT SCAN Routine 01/06/2025 3:[address] CHEST ABDOMEN PELVIS W CONTRAST ED Urgent/IP Urgent 10/11/2023 10:12 AM AUTOMATIC DISPENSER MECHANIC from Last 3 Months or Most Recently [...] Abdomen Pelvis W Contrast (10/11/2023 10:12 AM AUTOMATIC DISPENSER MECHANIC) Anatomical Region Laterality Modality Body N/A Computed Tomogra phy 10/11/2023 11:0 3 AM AUTOMATIC DISPENSER MECHANIC Impressions 10/11/2023 11:03 AM AUTOMATIC DISPENSER MECHANIC A 12 x 12 mm pulmonary nodule in the lateral aspect of the right costophrenic sulcus, new since 2019, is suspicious for primary lung malignancy. Electronically signed by: Jayshree Giles MD, Ph.D Narrative 10/11/2023 11:03 AM AUTOMATIC DISPENSER MECHANIC EXAMINATION: Computed tomography of chest/abdomen/pelvis with intravenous [...] by: Jayshree Giles MD, Ph.D [place]land COMPUTER PROGRAMMER CHIEF IMG CT PROCEDURES Final Result from Last 3 Months or Most Recently Relevant to Health Maintenance Insurance HU[employer]NA CHOICE MEDICARE PPO Pax8 OOS Member Subscriber Plan / Payer (Ef fective 2021-Present) Name:Abrahan Gtz Jr. Relation to Subscriber:Self Name:Abrahan Gtz Jr. Payer ID:[id number] (NAIC) Type:[facility] Address: [address] [place] [id number] [place] [address] HUMANA CHOICE MEDICARE PPO [address] [place] [address] Advance Directives For more information, please contact: [phone] Documents on File Type Date Recorded Patient Health And Safety Technician Expl anation ADVANCE DIRECTIVE 01/10/2024 3:33 PM LIVING WILL ADVANCE DIRECTIVE 01/10/2024 3:33 PM POWER OF HOBBING MACHINE OPERATOR-MEDICAL * Full Code (Latest Code Status [...] 5:17 PM 12/30/2019 5:42 PM Care Teams Allergist Relationship Specialty Start Date End Date Wolfgang Serrano MD [address] [place] [address] PCP - General Family Medicine 08/03/24 Wolfgang Serrano MD [address] [place] [address] Family Medicine 08/03/24 Unknown, Notinfile 03/12/22 [place] [address] [address] [place] [address] 03/12/22 Chuy Enriquez MD [address] [facility] [address] [place] [address] Consulting Physician Pulmonary Disease 10/13/23 Luis Felipe Cedillo MD [address] [facility] [address], [place] [address] Consulting Physician Gastroenterology 10/13/23 Marlene Thornton MD [address] [facility] [address], [place] [address] Surgeon Vascular Surgery 11/10/23 "
[2025-02-26 13:34] LABS: Anion Gap 6 mmol/L (4-12); Blood Urea Nitrogen 23 mg/dL (9-20); Calcium 8.9 mg/dL (8.4-10.2); Carbon Dioxide 24 mmol/L (22-30); Chloride 106 mmol/L (98-107); Estimated Glomerular Filt Rate 57; Glucose 99 mg/dL (65-110); Potassium 4.6 mmol/L (3.4-5.0); Sodium 136 mmol/L (137-145)
== END 2025-02-26 12:04 | disposition home or self-care (01) ==
LOC: ANHLAB 12:04 → HOME HLTH 12:06
PROVIDERS: PCP Family Medicine; Visit Provider Internal Medicine
DX: N17.9 Acute kidney failure, unspecified (principal)
CPT/HCPCS: 80048

== ENCOUNTER 2025-04-03 20:55 | Emergency (ER) | payer MEDICARE, MEDICAID, SELFPAY ==
--- NOTE | ~2025-04-03 | CT_ITS ---
History: Fall PROCEDURE: CT cervical spine without intravenous contrast. COMPARISON: None TECHNIQUE: Multiple contiguous axial images of the cervical spine were performed without the administration of i ntravenous contrast. DLP: 492 mGy-cm FINDINGS: Severe degenerative disease is identified, with osteophyte formation, disc space narrowing, endplate changes, subchondral cyst formation and facet arthropathy. No acute fractures are present. The bilateral lung apices are unremarkable. No soft tissue abnormality is present. The airway is patent. 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 Reviewed, dictated and finalized at location A. 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
--- NOTE | ~2025-04-03 | CT_ITS ---
History: Fall PROCEDURE: CT head without contrast. COMPARISON: 09/05/2024 TECHNIQUE: Axial imaging of the head performed from the skull base to the vertex without IV contrast. Sagittal a nd coronal reformations obtained. DLP: 681 mGy-cm FINDINGS: The ventricles are enlarged. The dilatation of the ventricles is proportional to the degree of sulcal prominence, not uncommon in the senescent brain. Decreased attenuation is identified within the periventricular white matter, likely secondary to micr ovascular ischemic disease, in a patient of this age. There is no mass, mass effect or midline shift. There is no abnormal extra-axial fluid collection or intracranial hemorrhage. Visualized paranasal sinuses are clear. The mastoid air cells are well aerated. No acute displaced fractures within the overlying cranium. Impression: No acute intracranial hemorrhage or suspicious mass effect. Reviewed, dictated and finalized at location A. Impression: No acute intracranial hemorrhage or suspicious mass effect.
[2025-04-03 21:05] VITALS: BP 122/73; PULSE 65; RESP 16; TEMP 36.6; O2SAT 99
--- NOTE | 2025-04-03 21:11 | PC.NURSE ---
vrbo per edp to go ahead to order ct brain/ct cspine
[2025-04-03 22:07] VITALS: BP 134/74; PULSE 62; RESP 18; O2SAT 100
--- NOTE | 2025-04-03 22:22 | ED.GENADULT ---
HPI - General Adult General Chief complaint: Neck Pain/Injury Stated complaint: fell two weeks ago, neck pain, wants an MRI Time Seen by Provider: 04/03/25 22:08 History of Present Illness HPI narrative: 80-year-old male with history of balance issues present to the emergency department for evaluation for 2 separate falls. Patient states he has had multiple falls and does use a Rollator to help ambulate. Patient states his most recent fall he was standing in the bathroom pulled his short up over his head and at that point he lost his balance fell struck his Rollator and then struck his head. Patient states he did have some neck pain from this but denies any loss of consciousness. Patient denies any worsening of his balance issues. Patient states he is now more careful and get some dressed sitting down. Patient confirmed he does have a shower stool and other stool in the bathroom that he uses. Patient does have bruising to his left hip and bruising to his back with no other pain or injury. Patient does have a chronic wound on his left anterior lower extremity that is being followed by wound care. Related Data Home Medications ?Medication ?Instructions ?Recorded ?Confirmed ?Last Taken ?Type furosemide 20 mg tablet (Lasix) 20 mg PO DAILY 08/13/23 03/13/25 02/01/24 History gabapentin 100 mg capsule 600 mg PO TID 08/13/23 03/13/25 02/01/24 History tizanidine 2 mg tablet 2 mg PO Q8H PRN Muscle Pain 08/13/23 03/13/25 02/02/24 08:00 History melatonin 10 mg tablet 10 mg PO HS PRN Sleep 10/10/23 03/13/25 02/01/24 History oxybutynin chloride 15 mg 15 mg PO HS 10/10/23 03/13/25 02/01/24 History tablet,extended release 24 hr cholecalciferol (vitamin D3) 50 50 mcg PO DAILY 11/09/23 03/13/25 02/01/24 History mcg (2,000 unit) capsule donepezil 10 mg tablet 10 mg PO QHS 11/09/23 03/13/25 02/01/24 History aspirin 81 mg chewable tablet 81 mg PO DAILY 01/26/24 03/13/25 02/01/24 History cetirizine 10 mg tablet 10 mg PO DAILY 01/26/24 03/13/25 02/01/24 History clobetasol 0.05 % topical ointment 1 applic topical BID PRN rash 01/26/24 03/13/25 02/01/24 History rosuvastatin 40 mg tablet 40 mg PO DAILY 01/26/24 03/13/25 02/01/24 History ferrous sulfate 325 mg (65 mg 325 mg PO BID 01/06/25 03/13/25 Unknown History iron) tablet (FeroSul) mirabegron 25 mg tablet,extended 25 mg PO DAILY 01/06/25 03/13/25 Unknown History release 24 hr (Myrbetriq) tamsulosin 0.4 mg capsule 0.4 mg PO HS 01/06/25 03/13/25 Unknown History dapagliflozin propanediol 5 mg 5 mg PO DAILY 02/16/25 03/13/25 02/15/25 History tablet (Farxiga) paroxetine HCl 20 mg tablet 20 mg PO QAM 02/16/25 03/13/25 02/15/25 History Allergies Allergy/AdvReac Type Severity Reaction Status Date / Time No Known Allergies Allergy Verified 03/13/25 12:35 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 Seizure x2 in 1997 Benign prostatic hyperplasia Esophageal stricture Gastroesophageal reflux Hypothyroidism Esophageal diverticulum, acquired Colon polyp Arthritis Diverticulosis Anemia Diverticulitis Myasthenia gravis patient denies Surgical History Surgical History History of arthroplasty of right knee History of Noemy fundoplication History of thyroidectomy Status post dilatation of esophageal stricture Family History Family History Mother , age 85 Acute myocardial infarction Hypertension Heart disease Father , age 70 Acute myocardial infarction Chronic obstructive pulmonary disease History of blood clots Hypertension Heart disease Sibling Acute myocardial infarction Hypertension Heart disease Other Heart disease Social History Social History Social History: Surrogate medical decision maker: Alon Gtz, spouse. Code status: Full code. Smoking packs per day: 1 Smoking cigarettes per day: 20.0 Years smoked: 4 Smoking pack-years: 4.00 Smoking status: Never smoker Alcohol intake: current Drinks per week: 1 Substance use: never Substance use type: does not use Do You Feel Safe in your Home?: Yes Lack of Transportation: No Lack of Food: Never True Current Housing: I Have Housing Concerned About Future Housing: No Difficulty Paying Gas/Electric Bills: No Difficulty Paying for Meds: No Currently Unemployed: No Education: Bachelor's Degree Difficulty w/ Childcare or Family Care: No Living arrangements: with family Additional living arrangements comments: Lives in [place] with his spouse. They have 3 children. 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 Spiritual care concerns: No Exam Narrative: APPEARANCE: Well appearing, no pain, no distress, well-nourished. HEAD: normocephalic, atraumatic. EYES: PERRLA/EOMI, conjunctivae clear. NOSE: Normal no drainage EARS:TMS clear with good light reflex. THROAT: Pharynx clear, no exudate. NECK: Supple. No adenopathy, no masses. RESPIRATORY: Airway patent, respirations nonlabored. Clear to auscultation bilaterally, no rales, rhonchi, wheezing. CARDIOVASCULAR: Regular rate and rhythm without murmurs rubs or gallops. ABDOMINAL: Soft, nontender, nondistended, normal bowel sounds MUSCULOSKELETAL: No midline cervical thoracic or lumbar spine tenderness to palpation NEURO: Alert. Cranial nerves II through XII intact. Good gait. Good coordination SKIN: Bruising to left lateral hip with no tenderness to palpation and bruising to right flank with no tenderness to palpation \ Course Vital Signs Vital signs: Vital Signs Temperature 97.9 F 04/03/25 21:05 Pulse Rate 65 04/03/25 21:05 Respiratory Rate 16 04/03/25 21:05 Blood Pressure 122/73 04/03/25 21:05 Pulse Oximetry 99 04/03/25 21:05 Oxygen Delivery Room Air 04/03/25 21:05 Temperature 97.9 F 04/03/25 21:05 Pulse Rate 64 04/03/25 22:57 Respiratory Rate 18 04/03/25 22:57 Blood Pressure 122/72 04/03/25 22:57 Pulse Oximetry 100 04/03/25 22:57 Oxygen Delivery Room Air 04/03/25 21:05 Medical Decision Making MDM Narrative Medical decision making narrative: 80-year-old male presents emergency department for evaluation for a head injury. Patient has no gait instability and patient has had falls recently. Patient denies any increased numbness weakness or any worsening gait issues. Patient was concerned that he felt something moving in his head. Head CT was negative cervical CT was negative. Patient and family are updated on results imaging patient was encouraged to follow fall risk prevention guidelines. Patient toe low also courage to have follow-up with primary care physician for possible physical therapy to help with any gait issues and potential deconditioning. Differential Diagnosis Differential Diagnosis: Subdural hematoma, subarachnoid hemorrhage, cervical spine fracture, physical deconditioning, sepsis, TIA, CVA Vital Signs Vital Signs: Vital Signs Temperature 97.9 F 04/03/25 21:05 Pulse Rate 65 04/03/25 21:05 Respiratory Rate 16 04/03/25 21:05 Blood Pressure 122/73 04/03/25 21:05 Pulse Oximetry 99 04/03/25 21:05 Oxygen Delivery Room Air 04/03/25 21:05 Temperature 97.9 F 04/03/25 21:05 Pulse Rate 64 04/03/25 22:57 Respiratory Rate 18 04/03/25 22:57 Blood Pressure 122/72 04/03/25 22:57 Pulse Oximetry 100 04/03/25 22:57 Oxygen Delivery Room Air 04/03/25 21:05 Imaging Data Radiologist's impression: Impressions Head CT 04/03/25 22:00 Impression: No acute intracranial hemorrhage or suspicious mass effect. Cervical Spine CT 04/03/25 22:28 Impression: Severe degenerative disease, without acute fracture. Discharge Plan Discharge Clinical Impression: Acute neck pain, Head injury Patient Disposition: Home Condition: Stable Instructions: Antibiotic Form, Fall Prevention for Older Adults (ED), Head Injury (DC), Neck Pain (ED) Additional Instructions: Continue Tylenol for pain control. Flexeril as needed for muscle spasm. The Flexeril may worsen your gait instability so please use this cautiously. Have close follow-up with your primary care physician. Your primary care physician may wish to help set you up with physical therapy. Patient Language: Khmer Prescriptions: No Action mometasone 0.1 % ointment 1 applic topical DAILY PRN (Reason: itching) Qty: 45 0RF cholecalciferol (vitamin D3) 50 mcg (2,000 unit) capsule 50 mcg PO DAILY donepezil 10 mg tablet 10 mg PO QHS cetirizine 10 mg tablet 10 mg PO DAILY clobetasol 0.05 % ointment 1 applic TOPICAL BID PRN (Reason: rash) aspirin 81 mg Tablet,Chewable 81 mg PO DAILY rosuvastatin 40 mg Tablet 40 mg PO DAILY tamsulosin 0.4 mg capsule 0.4 mg PO HS ferrous sulfate [FeroSul] 325 mg (65 mg iron) tablet 325 mg PO BID mirabegron [Myrbetriq] 25 mg tablet extended release 24 hr 25 mg PO DAILY nitroglycerin [Nitrostat] 0.4 mg Tablet, Sublingual 0.4 mg sublingual Q5MIN PRN (Reason: Chest Pain) Qty: 20 0RF dapagliflozin propanediol [Farxiga] 5 mg tablet 5 mg PO DAILY paroxetine HCl 20 mg tablet 20 mg PO QAM levothyroxine 175 mcg capsule 100 mcg PO DAILY Qty: 30 2RF furosemide [Lasix] 20 mg Tablet 20 mg PO DAILY gabapentin 100 mg capsule 600 mg PO TID tizanidine 2 mg Tablet 2 mg PO Q8H PRN (Reason: Muscle Pain) oxybutynin chloride 15 mg tablet extended release 24hr 15 mg PO HS melatonin 10 mg Tablet 10 mg PO HS PRN (Reason: Sleep) pantoprazole 40 mg tablet,delayed release (DR/EC) 40 mg PO BID Qty: 60 5RF Brilinta 90 mg tablet 90 mg PO Q12HR 30 Days Qty: 60 5RF amoxicillin 500 mg capsule 500 mg PO Q8HR Qty: 12 0RF doxycycline hyclate 100 mg tablet 100 mg PO Q12HR Qty: 8 0RF Follow-up/Referrals: Wolfgang Serrano MD [Primary Care Provider] -
[2025-04-03] MEDS: CYCLOBENZAPRINE HCL 10 MG TABLET PO (22:29)
[2025-04-03 22:57] VITALS: BP 122/72; PULSE 64; RESP 18; O2SAT 100
== END 2025-04-03 22:57 | disposition home or self-care (01) ==
PROVIDERS: Emergency Provider Emergency Medicine; PCP Family Medicine
DX: S19.9XXA Unspecified injury of neck, initial encounter (principal); S09.90XA Unspecified injury of head, initial encounter; S70.02XA Contusion of left hip, initial encounter; S30.1XXA Contusion of abdominal wall, initial encounter; L98.8 Other specified disorders of the skin and subcutaneous tissue; I69.954 Hemiplegia and hemiparesis following unspecified cerebrovascular disease affecting left non-dominant side; I69.911 Memory deficit following unspecified cerebrovascular disease; E89.0 Postprocedural hypothyroidism; E78.5 Hyperlipidemia, unspecified; N32.81 Overactive bladder; N40.0 Benign prostatic hyperplasia without lower urinary tract symptoms; Z96.651 Presence of right artificial knee joint; Z86.0100 Personal history of colon polyps, unspecified; Z86.2 Personal history of diseases of the blood and blood-forming organs and certain disorders involving the immune mechanism; Z87.891 Personal history of nicotine dependence; W01.198A Fall on same level from slipping, tripping and stumbling with subsequent striking against other object, initial encounter
CPT/HCPCS: 70450; 72125; 99284; A9270

== ENCOUNTER 2025-05-15 07:03 | Outpatient (RCR) | payer MEDICARE, MEDICAID, SELFPAY ==
[2025-03-13 12:17] VITALS: BMI 26.6
--- NOTE | 2025-03-13 14:17 | WPDPN ---
Progress Note: A&P Assessment and Plan (1) Hematoma of left lower leg: Code(s): S80.12XA - Contusion of left lower leg, initial encounter Status: Acute Assessment and Plan: Patient doing well now after incision drainage of an infected left lower extremity traumatic hematoma. The wound is being packed daily by the patient's family and home health nurses. Granulation of the wound is proceeding appropriately. Continue dressing changes and will have follow-up in the [facility] Care [facility] in about 2 weeks. Hopefully at that time we can discontinue packing and the patient can try to swim in his own pool. Subjective Date/time seen: 03/13/25 14:17 Interval history: Patient returns to the [facility] for wound check. He had undergone incision and drainage of an infected traumatic left lower extremity hematoma. He has been managed with wound packing at home. He has no complaints today. Exam Extrem: Other: Lateral left lower extremity wound on the distal calf region now measures 3.5h4y4lm. There is some undermining from the 8 o'clock position about 2cm. Excellent granulation tissue was noted throughout the whole wound. The edges are emily. Minimal swelling is noted around the wound but he has a little more swelling of the foot distal to the wound.
--- NOTE | 2025-03-27 15:51 | P.PN_ITS ---
Progress Note: A&P Assessment and Plan (1) Cellulitis of left lower leg: Code(s): L03.116 - Cellulitis of left lower limb Status: Acute Assessment and Plan: Status post incision and drainage of distal left lower extremity infected hematoma. The wound is now healing. No residual infection. Excellent granulation tissue within the wound base. Go ahead continue packing the wound with silver rope. Hopefully in the next 2 weeks it will continue to contract to the point that packing would no longer be needed. Follow-up [facility] again in 2 weeks. Subjective Date/time seen: 03/27/25 15:51 Interval history: Patient returns to [facility] for an interval two week evaluation of his left distal lower extremity wound. He has no complaints. Is being dressed with silver rope packing at home. Exam Skin: Other: The wound now measures 2.5x2x0.4cm. There was about 1cm of undermining at the 9 o'clock position. No cellulitis. Some serous drainage.
--- NOTE | 2025-04-12 16:45 | WPDPN ---
Progress Note: A&P Assessment and Plan (1) Cellulitis of left lower leg: Code(s): L03.116 - Cellulitis of left lower limb Status: Acute Assessment and Plan: The patient had a previous infected hematoma which was drained. The resulting wound is now closing and is very small. It no longer needs packing. The patient can just place silver gel onto the wound just cover with a dry dressing. He can get into his pool for short periods and get the wound supposed to pull water. I instructed him to immediately shower and wash out the wound when gets out of the pool. It into redressed with silver gel and covered with a dry dressing in. He will return to see me in the [facility] in 3 weeks. Subjective Date/time seen: 04/10/25 Interval history: Mr. Gtz comes to the [facility] today for a interval to week follow-up visit to see me. He is doing well. The left lower extremity wound is healing well. It is just being packed with silver rope. He has no complaints. He really wants to get into his pool. Exam Skin: Other: On the left lateral lower extremity below the knee he has a 1.5x1x0.3cm wound which is continued to contract. Excellent granulation tissue was noted. It is very superficial. There is no swelling or evidence of cellulitis.
--- NOTE | 2025-05-01 15:41 | P.PN_ITS ---
Progress Note: A&P Assessment and Plan (1) Hematoma of left lower leg: Code(s): S80.12XA - Contusion of left lower leg, initial encounter Status: Acute Assessment and Plan: Patient underwent drainage of infected hematoma of the left lateral lower leg several weeks ago. Wound is closing by secondary intention very nicely. It is very small now and will continue to apply small amount of silver gel to the area and cover with a dry dressing. I will see him back in the [facility] in 2 weeks and at that time I suspect it will be healed enough to release him from my care. He may continue getting into his pool with the wound and immediately washed it out after gets out of the pool. Subjective Date/time seen: 05/01/25 15:41 Interval history: Mr. Gtz comes back to the [facility] for a 3 week interval evaluation of the wound on his left lower leg. He has been doing very well. He has been getting into his pool but then washing out the wound in the shower immediately afterwards as per my instructions. He has no complaints r elated to the wound. Exam Extrem: Other: The left lateral lower extremity wound is markedly decreased in size since I saw him last 3 weeks ago. It now only measures 1x0.3x0.2 cm. There is 100% granulation of the base and is emily quickly. No cellulitic changes and minimal swelling.
--- NOTE | 2025-05-15 17:36 | WPDPN ---
Progress Note: A&P Assessment and Plan (1) Hematoma of left lower leg: Code(s): S80.12XA - Contusion of left lower leg, initial encounter Status: Acute Assessment and Plan: Patient had a infected hematoma left lower extremity which was drained and had long-term wound care of the resulting wound. The wound has now completely healed and has formed a small dry scab. I do not think he needs to cover it any longer. He no longer needs to follow up with the Wound Care Clinic. Follow with me p.r.n.. Subjective Date/time seen: 05/15/25 17:36 Interval history: Patient last seen 2 weeks ago with [facility] by me. At that time he had a small wound which was can use the heel on the lateral aspect of his left lower leg. There was some exuberant granulation tissue noted this was treated with silver nitrate. That has resulted in a scab formation and wound is completely closed. He has no other complaints. Exam Skin: Other: The wound on the left lower extremity has completely healed. There is a dry scab in place measuring about 1x0.5cm. No drainage or redness around the scab.
== END 2025-06-11 23:59 | disposition home or self-care (01) ==
LOC: ANHWOC 07:03
PROVIDERS: PCP Family Medicine; Visit Provider Surgery
DX: S80.12XA Contusion of left lower leg, initial encounter (principal)
CPT/HCPCS: 99212; 99213; 99214; G0463

== ENCOUNTER 2025-05-15 20:43 | Emergency (ER) | payer MEDICARE, SELFPAY ==
--- NOTE | ~2025-05-15 | CT_ITS ---
History: Fall PROCEDURE: CT cervical spine without intravenous contrast. COMPARISON: 04/03/2025 and dating back to 10/10/2023 TECHNIQUE: Multiple contiguous axial images of the cervical spine were performed without the administration of i ntravenous contrast. DLP: 494 mGy-cm FINDINGS: 10 degrees of dextroscoliotic curvature of the cervical spine is identified. Significant degenerative disease is identified with osteophyte formation, disc space narrowing, endpl ate changes and subchondral cyst formation. No acute fractures are present. 4 mm nodule within the right upper lobe, unchanged dating back to 10/10/2023. The remainder of the bilateral lung apices are otherwise unremarkable. Post thyroidectomy change. No additional soft tissue abnormality is otherwise appreciated The airway is patent. Residual oral contents within the esophagus. 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 Reviewed, dictated and finalized at location A. 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
--- NOTE | ~2025-05-15 | XR_ITS ---
AP and lateral views of the sacrum/coccyx CLINICAL HISTORY: Pain FINDINGS: No acute fracture or dislocation seen. Joint spaces are intact. Soft tissues are unremarkab le. IMPRESSION: No significant abnormality seen. Reviewed, dictated and finalized at [facility].
--- NOTE | ~2025-05-15 | XR_ITS ---
AP view of the pelvis and AP and lateral views of the left hip Clinical history: Pain Findings: No acute fracture or dislocation is seen. Osseous alignment is anatomic. Bilateral hip and SI joint spaces are preserved. Soft tissues are unremarkable. Impression: No significant abnormality is seen. Reviewed, dictated and finalized at [facility]. Impression: No significant abnormality is seen.
--- NOTE | ~2025-05-15 | CT_ITS ---
History: Fall PROCEDURE: CT head without contrast. COMPARISON: 04/03/2025 TECHNIQUE: Axial imaging of the head performed from the skull base to the vertex without IV contrast. Sagittal a nd coronal reformations obtained. DLP: 605 mGy-cm FINDINGS: The ventricles are enlarged. The dilatation of the ventricles is proportional to the degree of sulcal prominence, not uncommon in the senescent brain. Decreased attenuation is identified within the periventricular white matter, likely secondary to micr ovascular ischemic disease, in a patient of this age. There is no mass, mass effect or midline shift. There is no abnormal extra-axial fluid collection or intracranial hemorrhage. Visualized paranasal sinuses are clear. The mastoid air cells are well aerated. No acute displaced fractures within the overlying cranium. Impression: No acute intracranial hemorrhage or suspicious mass effect. Reviewed, dictated and finalized at location A. Impression: No acute intracranial hemorrhage or suspicious mass effect.
--- OUTSIDE RECORDS SUMMARY | 2025-05-15 20:45 | XMS_ITS | Continuity of Care Document ---
Author Organization [employer] [place] Address [address] [facility] [facility] [address] [place] [address] Phone Care Team Providers Care Finishing Pan Operator Name Role Phone Grabiel SOLITARIO, Florentino Unavailable [...] Activities Therapeutic Exercise Progress Note Therapeutic Exercise Therapeutic Activities Neuromuscular Re-Ed Therapeutic Activities Therapeutic Exercise Neuromuscular Re-Ed Hot or Cold Pack Therapeutic Activities Neuromuscular Re-Ed Hot or Cold Pack Electrical Stimulation Therapeutic Activities Hot or Cold Pack Neuromuscular Re-Ed Electrical Stimulation Therapeutic Activities Neuromuscular Re-Ed Therapeutic Exercise Hot or Cold Pack Progress Note Hot or Cold Pack Therapeutic Activities Therapeutic Exercise Neuromuscular Re-Ed Hot or Cold Pack Neuromuscular Re-Ed Therapeutic Activities Therapeutic Activities Neuromuscular Re-Ed Hot or Cold Pack Therapeutic Exercise Therapeutic Activities Neuromuscular Re-Ed Therapeutic Exercise Therapeutic Activities Neuromuscular Re-Ed Therapeutic Exercise Therapeutic Exercise Neuromuscular Re-Ed Therapeutic Activities Hot or Cold Pack Manual Therapy Neuromuscular Re-Ed Hot or Cold Pack Therapeutic Exercise Therapeutic Exercise Manual Therapy Progress Note Neuromuscular Re-Ed Hot or Cold Pack Therapeutic Exercise Neuromuscular Re-Ed Therapeutic Activities Neuromuscular Re-Ed Therapeutic Activities Hot or Cold Pack Manual Therapy Therapeutic Exercise Therapeutic Exercise Neuromuscular Re-Ed Manual Therapy Therapeutic Activities Hot or Cold Pack Neuromuscular Re-Ed Hot or Cold Pack Manual Therapy Therapeutic Exercise Therapeutic Activities Therapeutic Exercise Manual Therapy Neuromuscular Re-Ed Therapeutic Exercise Manual Therapy Neuromuscular Re-Ed Electrical [...] Therapeutic Exercise Therapeutic Activities Neuromuscular Re-Ed Therapeutic Activities Progress Note Therapeutic Exercise Therapeutic Activities Neuromuscular Re-Ed Therapeutic Exercise Neuromuscular Re-Ed Therapeutic Activities Therapeutic Exercise Therapeutic Exercise PT Evaluation Low Complexity Therapeutic Activities Neuromuscular Re-Ed Therapeutic Exercise Manual Therapy Therapeutic Exercise Therapeutic [...] Diagnoses Date Provider Providers Copied on Encounter [facility], [address], [place], [place], [id number], tel:[phone] [place] No Information Jul- 2 Grabiel Florentino. . Referring Provider: George Cardenas, [address] [address], [place], [address]. tel:[phone] [facility], [place], [place], [address], tel:[phone] [place] No Information 2 Grabiel Florentino. . Referring Provider: George Cardenas, [address], [place], [address]. tel:[phone] [facility] [address], [place], [place], [address], tel:[phone] [place] No Information Jul-0 2 Grabiel Florentino. . Referring Provider: George Cardenas, [address], [place], [address]. tel:[phone] [facility], [place], [place], [address], tel:[phone] [place] No Information 3 0 2 Grabiel Florentino. . Referring Provider: George Cardenas [address], [place], [address]. tel:[phone] [facility], [place], [place], [address], [place] tel:[phone] [place] No Information 2 Grabiel Florentino. . Referring Provider: George Cardenas, [address], [place], [address]. tel:[phone] [facility], [address], [place], [place], [address], [place] tel:[phone] [place] No Information 2 Grabiel Florentino. . Referring Provider: George Cardenas, [address], [place], [address]. tel:[phone] [facility] [address], [place], [place], [address], tel:[phone] [place] No Information 2 Grabiel Florentino. . Referring Provider: George Cardenas, [address], [place], [address]. tel:[phone] [facility], [address], [place], [place], [address], [place] tel:[phone] [place] No Information 2 Grabiel Florentino. . Referring Provider: George Cardenas, [address], [place], [address]. tel:[phone] [facility] [address], [place], [place], [address], [place] tel:[phone] [place] No Information 2 Grabiel Florentino. . Referring Provider: George Cardenas, [address], [place], [address]. tel:[phone] [facility] [address], [place], [place], [address], [place] tel:[phone] [place] No Information 2 Grabiel Florentino. . Referring Provider: George Cardenas, [address], [place], [address]. tel:[phone] [facility] [place], [address], [place], [place], [address], tel:[phone] [place] No Information 2 Grabiel Good. . Referring Provider: George Cardenas, [address] [facility] [address] [facility] [place] [facility] [place], [place], [address]. tel:[phone] [place] [address] [address], [place], [place], [address], tel:[phone] [place] No Information 2 Muehl Harinder. [address] [place] [address], [address], [place], [facility], . tel:[phone] Referring Provider: Carol Aceves, [address] [address], [place], [address]. tel:[phone] [place] [address] [place] [address], [place], [place], [address], tel:[phone] [place] No Information 2 Muloisl Harinder. [address] [place] [address], [address], [place], [place], [facility], . tel:[phone] Referring Provider: Carol Aceves, [address] [place] [address], [place], [address]. tel:[phone] [place] [address] [place] [address], [place], [place], [address], tel:[phone] [place] No Information 2 Denisa Parada. . Referring Provider: Carol Aceves, [address] [facility] [address] [facility] [place] [facility] [place], [place], [address]. tel:[phone] [place] [address] [address] [address], [place], [place], [address], tel:[phone] [place] No Information 0 2 Denisa Parada. . Referring Provider: Carol Aceves, [address] [address], [place], [address]. tel:[phone] [facility], [address] [address], [place], [place], [address], tel:[phone] [place] No Information 2 Pitoner Tal. . Referring Provider: Carol Aceves [address] [place] [address] [address] [facility] [place] [facility] [place], [place], [place], [facility]. tel:[phone] [address], [place], [place], [address], tel:[phone] [place] No Information 2 Muehl Harinder. [address] [place] [address], [address], [place], [facility], . tel:[phone] Referring Provider: Luis [address] [address], [place], [facility]. tel:[phone] [address], [place], [place], [address], tel:[phone] [place] No Information 2 Muehl Harinder. [address] [place] [address], [address], [place], [facility], . tel:[phone] Referring Provider: Luis Herman [facility] [address] [facility] [place] [facility] [place], [place], [facility]. tel:[phone] [place] [address], [place], [place], [address], tel:[phone] [place] No Information 2 Muehl Harinder. [address] [place] [address], [address], [place], [facility], . tel:[phone] Referring Provider: Carol Aceves [address] [place] [address] [place] [address], [facility]. tel:[phone] [address], [place], [place], [address], tel:[phone] [place] No Information 2 Muehl Harinder. [address] [place] [address], [address], [place], [facility], . tel:[phone] Referring Provider: Carol Aceves, [address] [place] [address] [address] [facility] [place] [facility] [place], [place], [address]. tel:[phone] [place] [address], [place], [place], [address], tel:[phone] [place] No Information 7 2 Pitoner Tal. . Referring Provider: Carol Aceves, [address] [place] [address], [place], [facility]. tel:[phone], [place], [place], [address], tel:[phone] [place] No Information 2 Muehl Harinder. [address] [place] [address], [address], [place], [facility], . tel:[phone] Referring Provider: Carol Aceves, [address] [place] [address], [place], [facility]. tel:[phone] [place] [address], [place], [place], [address], tel:[phone] [place] No Information 0 2 Muehl Harinder. [address] [place] [address], [address], [place], [facility], . tel:[phone] Referring Provider: Carol Aceves, [address] [place] [address], [place], [address]. tel:[phone] [place] [address], [place], [place], [address], tel:[phone] [place] No Information 8 2 Muehl Harinder. [address] [place] [address], [address], [place], [facility], . tel:[phone] Referring Provider: Carol Aceves, [address] [place] [address], [place], [facility]. tel:[phone] [address], [place], [place], [address], tel:[phone] [place] No Information Jan-2 2 Modglin Tre. . Referring Provider: Carol Aceves, [address] [place] [address], [place], [address]. tel:[phone] [place] [address], [address] [place] [address], [place], [place], [address], tel:[phone] [place] No Information Jan-2 2 Niederhoffer Fernanda. . Referring Provider: Carol Aceves, [address] [place] [address], [place], [facility]. tel:[phone] [place] [address], [place], [place], [address], [place] tel:[phone] [place] No Information Jan-1 2 Niederhoffer Fernanda. . Referring Provider: Carol Aceves, [address] [place] [address], [place], [facility]. tel:[phone] [place] [address] [place] [address], [place], [address], [place] tel:[phone] [place] No Information Jan-1 2 Niederhoffer Fernanda. . Referring Provider: Carol Aceves, [address] [place] [address], [place], [facility]. tel:[phone] [place] [address], [place], [place], [address], [place] tel:[phone] [place] No Information Apr-0 2 Yuval Foote. [address] [place] [address], [address], [place], [place], [facility], [place]. tel:[phone] Referring Provider: Carol Aceves [address] [place] [address], [place], [facility]. tel:[phone] [place] [address], [address] [place] [address], [place], [place], [address], [place] tel:[phone] [place] No Information Apr-0 2 Clarita Pizano. [address] [place] [address], [address], [place], [facility], . tel:[phone] Referring Provider: Carol Aceves, [address] [facility] [address] [place] [address], [facility]. tel:[phone] [address], [place], [address], tel:[phone] [place] No Information Mar-3 0-202 2 Muehl Harinder. [address] [place] [address], [facility] [address], [place], [facility], . tel:[phone] Referring Provider: Carol Aceves, [address], [facility]. tel:[phone], [id number], tel:[phone] [place] No Information Mar-2 8-202 2 Muehl Harinder. [address] [place] [address], [address] [place] [address], [facility], . tel:[phone] Referring Provider: Carol Aceves, [address] [facility] [address] [place] [address], [facility]. tel:[phone], [id number], tel:[phone] [place] No Information Mar-2 4-202 2 Muehl Harinder. [address] [place] [address], [address] [place] [address], [facility], . tel:[phone] Referring Provider: Carol Aceves, [address] [facility] [address] [place] [address], [facility]. tel:[phone], [id number], tel:[phone] [place] No Information Mar-2 2-202 2 Muehl Harinder. [address] [place] [address], [address], [place], [facility], . tel:[phone] Referring Provider: Carol Aceves [address] [facility] [address] [place] [address], [facility]. tel:[phone] [facility] [address] [place], [place] [address], [place], [place], [address], [place] tel:[phone] [place] No Information Mar-1 6-202 2 Muehl Harinder. [address] [place] [address], [address], [place], [facility], . tel:[phone] Referring Provider: Carol Aceves, [address] [place] [address], [place], [facility]. tel:[phone] [address], [place], [place], [address], [place] tel:[phone] [place] No Information Mar-1 5-202 2 Muehl Harinder. [address] [place] [address], [address], [place], [facility], . tel:[phone] Referring Provider: Carol Aceves, [address] [place] [address], [facility]. tel:[phone] [place], [place] [address], [place], [place], [address], [place] tel:[phone] [place] No Information Mar-1 1-202 2 Muehl Harinder. [address] [place] [address], [address], [place], [facility], . tel:[phone] Referring Provider: Carol Aceves, [address] [place] [address], [address]. tel:[phone] [facility] [address] [place] [address], [place], [place], [address], [place] tel:[phone] [facility] No Information Mar-0 4-202 2 Makler Luke. . Referring Provider: George Cardenas, [address], [address]. tel:[phone] [facility], [address], [place], [place], [address], [place] tel:[phone] [facility] No Information Mar-0 3-202 2 Makler Luke. . Referring Provider: George Cardenas, [address] [facility] [address], [place], [address]. tel:[phone] [facility] [address], [place], [place], [address], tel:[phone] [facility] No Information Feb-2 2 Makler Luke. . Referring Provider: George Cardenas, [address] [facility] [address], [place], [address]. tel:[phone] [facility], [address], [place], [place], [address], [place] tel:[phone] [facility] No Information b-2 2 Makler Luke. . Referring Provider: George Cardenas, [address] [address], [place], [address]. tel:[phone] [facility] [address] [facility] [address], [place], [place], [address], tel:[phone] [facility] No Information Feb-2 2 Makler Luke. . Referring Provider: George Cardenas, [address] [address], [place], [address]. tel:[phone] [facility], [address], [place], [place], [address], tel:[phone] [facility] No Information b-2 2 Makler Luke. . Referring Provider: George Cardenas, [address] [address], [place], [address]. tel:[phone] [facility], [address], [place], [place], [address], [place] tel:[phone] [place] Pain in right kneeEffusion, right kneeMuscle weakness (generalized) Stiffness of right knee, not elsewhere classifiedUns pecified abnormalities of gait and mobility 9 [facility] Pizano. [address] [facility], [address], [place], [facility], [place]. tel:[phone] Referring Provider: Jossie Montalvo, [address] [facility] [address], [place], [address]. tel:[phone] [facility] [address] [place], [place] [address], [place], [place], [address], [place] tel:[phone] [place] Pain in right kneeEffusion, right kneeMuscle weakness (generalized) Stiffness of right knee, not elsewhere classifiedUns pecified abnormalities of gait and mobility Feb-1 5-201 9 [facility] Harinder. [address] [place] [address], [address], [place], [facility], [place]. tel:[phone] Referring Provider: Jossie Montalvo, [address] [facility] [address], [place], [address]. tel:[phone] [facility] [address], [place], [place], [address], [place] tel:[phone] [place] Pain in right kneeEffusion, right kneeMuscle weakness (generalized) Stiffness of right knee, not elsewhere classifiedUns pecified abnormalities of gait and mobility Feb-1 2-201 9 Threl[place]eld Jacquie. . Referring Provider: Jossie Montalvo, [address] [address], [place], [address]. tel:[phone] [facility] [address], [place], [place], [address], [place] tel:[phone] [place] Pain in right kneeEffusion, right kneeMuscle weakness (generalized) Stiffness of right knee, not elsewhere classifiedUns pecified abnormalities of gait and mobility Feb-0 7-201 9 [facility] Harinder. [address] [place] [address], [address], [place], [address], [place]. tel:[phone] Referring Provider: Jossie Montalvo, [address] [facility] [address], [place], [address]. tel:[phone] [facility], [address], [place], [place], [address], [place] tel:[phone] [place] Pain in right kneeEffusion, right kneeMuscle weakness (generalized) Stiffness of right knee, not elsewhere classifiedUns pecified abnormalities of gait and mobility Feb-0 9 Muehl Harinder. [address] [facility], [address], [place], [address], [place]. tel:[phone] Referring Provider: Jossie Montalvo, [address], [place], [address]. tel:[phone] [facility] [address] [place], [place] [address], [place], [place], [address], [place] tel:[phone] [place] Pain in right kneeEffusion, right kneeMuscle weakness (generalized) Stiffness of right knee, not elsewhere classifiedUns pecified abnormalities of gait and mobility 9 Muehl Harinder. [address] [place] [address], [facility] [address], [place], [facility], [place]. tel:[phone] Referring Provider: Jossie Montalvo, [address] [facility] [address] [facility] [place] [place], [place], [address]. tel:[phone] [facility] [address] [place] [address]e [address], [place], [place], [address], [place] tel:[phone] [place] Pain in right kneeEffusion, right kneeMuscle weakness (generalized) Stiffness of right knee, not elsewhere classifiedUns pecified abnormalities of gait and mobility 9 Muehl Harinder. [address] [facility], [address], [place], [address], [place]. tel:[phone] Referring Provider: Jossie Montalvo, [address], [place], [address]. tel:[phone] [facility] [address], [place], [place], [address], [place] tel:[phone] [place] Pain in right kneeEffusion, right kneeMuscle weakness (generalized) Stiffness of right knee, not elsewhere classifiedUns pecified abnormalities of gait and mobility 9 Muehl Harinder. [address] [facility], [address], [place], [address], [place]. tel:[phone] Referring Provider: Jossie Montalvo, [address], [place], [address]. tel:[phone] [facility] [address], [place], [place], [address], [place] tel:[phone] [place] Pain in right kneeEffusion, right kneeMuscle weakness (generalized) Stiffness of right knee, not elsewhere classifiedUns pecified abnormalities of gait and mobility Dec-2 8201 8 Muehl Harinder. [address] [facility], [address], [place], [facility], [place]. tel:[phone] Referring Provider: Jossie Montalvo, [address], [place], [address]. tel:[phone] [facility] [address], [place], [place], [address], [place] tel:[phone] [place] Pain in right kneeEffusion, right kneeMuscle weakness (generalized) Stiffness of right knee, not elsewhere classifiedUns pecified abnormalities of gait and mobility Dec-2 201 8 Maddie Chavez . Referring Provider: Jossie Montalvo [address], [place], [address]. tel:[phone] [facility] [address], [place], [place], [address], [place] tel:[phone] [place] Pain in right kneeEffusion, right kneeMuscle weakness (generalized) Stiffness of right knee, not elsewhere classifiedUns pecified abnormalities of gait and mobility Dec-2 8 Clarita Pizano. [address] [facility], [address], [place], [address], [place]. tel:[phone] Referring Provider: Jossie Montalvo, [address], [place], [address]. tel:[phone] [facility] [address], [place], [place], [address], [place] tel:[phone] [place] Pain in right kneeEffusion, right kneeMuscle weakness (generalized) Stiffness of right knee, not elsewhere classifiedUns pecified abnormalities of gait and mobility Dec-2 0201 8 Muehl Harinder. [address] [facility], [address], [place], [address], [place]. tel:[phone] Referring Provider: [address], [place], [address]. tel:[phone] Family History Family Member Type Diagnosis Age At Onset No Information Payers Payer name Insurance type Covered republican ID Authordon johnson(s) [facility] [id number] [facility] [id number] Social History Type Description Quantity Date Captured [...]
--- OUTSIDE RECORDS SUMMARY | 2025-05-15 20:45 | XMS_ITS | Clinical Summary ---
Author Organization [facility] Address [address] [place] [address] Care Team Providers Care Web Specialist Name Role Phone Santino Paris MD Primary Care Provider [phone] Source Comments [facility],non-owned Affiliates and Associated Physician Practices is amultiple site organization consisting of ambulatory clinics and hospital sitesin [place], [place], [place] and [place]. This disclosure is being madepursuant to the Care Everywhere program and may not contain all informatio navailable regarding this patient. Last updated 18.[facility] Allergies No known active allergies Medications * Be aware that medications may not be up to date on this document. Alwaysverify current medications with the patient. 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 Social History Tobacco Use Types Packs/Day Years Used Date Smoking Tobacco: Never Smokeless Tobacco: Never Alcohol Use Standard Drinks/Week Comments Yes 0 (1 standard drink = 0.6 oz pur e alcohol) occasionally Sex and Gender Information Value Date Recorded Sex Assigned at Not on file 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 Gender Identity Not on file Sexual Orientation Not on file Last Filed Vital Signs Vital Sign Reading Time Taken Comments Blood Pressure 175/85 06/22/2018 10:15 AM CDT Pulse 50 06/22/2018 10:15 AM CDT Temperature 36.6 C (97.8 F) 06/22/2018 10:15 AM CDT Respiratory Rate 18 06/22/2018 10:15 AM CDT Oxygen Saturation 100% 06/22/2018 10:15 AM CDT Inhaled Oxygen Concentration - - Weight 103 kg (227 lb) 06/22/2018 8:59 AM CDT Height 182.9 cm (6') 06/22/2018 8:59 AM CDT Body Mass Index 30.79 06/22/2018 8:59 AM CDT Plan of Treatment Health Maintenance Due Date Last Done Comments DTAP/TDAP/TD VACCINES (1 - Tdap) 1962 PNEUMOCOCCAL VACCINE 50+ (1 of 1 - PCV) 1993 ZOSTER VACCINE (1 of 2) 1993 Respiratory Syncytial Virus (RSV) Vaccine Pt: or over 60 yrs (1 - 1-dose 75+ series) 2018 COVID-19 VACCINE ( - 2023-2 5 season) 2024 DEPRESSION SCREENING 10/11/2024 INFLUENZA VACCINE (#1) 2025 HEPATITIS B VACCINE Aged Out No longe r eligible based on patient's age to complete this topic HIB VACCINE Aged Out No longer eligi ble based on patient's age to complete this topic HPV VACCINE Aged Out No longer eligi ble based on patient's age to complete this topic MENINGOCOCCAL (Group B) VACC INE SHARED DECISION-MAKING Aged Out No longer eligibl e based on patient's age to complete this topic MENINGOCOCCAL GROUPS A/C/Y/W VACCINE Aged Out No longer eligible b ased on patient's age to complete this topic Medical Devices Implanted Type Area Front End Driver Device Identifier Shelf Expiration Date Model / Serial / Lot Lens Iol +21 Ntae Mod C Bcnvx Tecnis - [id number] Implanted:Qty: 1 on 06/07/2018 by Tyrel Ash MD at [facility] [employer] 05/02/2021 [id number] / [id number] / Lens Iol +21.5 Nate H[address] C [address]cnvx [facility] - [id number] Implanted:Qty: 1 on 06/22/2018 by Tyrel Ash MD at [facility] [employer] 04/30/2021 [id number] / [id number] / Insurance MEDICARE MEDICARE Advance Directives * Full Code (Latest Code Status on File) Date Activated Date Inactivated Comments 06/22/2018 8:45 AM 06/22/2018 11:42 AM * Full Code Date Activated Date Inactivated Comments 06/22/2018 8:45 AM 06/22/2018 8:45 AM * Full Code Date Activated Date Inactivated Comments 06/07/2018 11:08 AM 06/07/2018 12:30 PM * Full Code Date Activated Date Inactivated Comments 06/07/2018 8:45 AM 06/07/2018 11:08 AM Care Teams Web Specialist Relationship Specialty [place] [address] [facility] [address] [place] [address] [facility] - General 05/12/18
--- OUTSIDE RECORDS SUMMARY | 2025-05-15 20:45 | XMS_ITS | Continuity of Care Document ---
Author Organization [facility] Address [address] [place] [address] Phone Care Team Providers Care Supervisor Facepiece Line Name Role Phone Caio ADKINS, Jhonny Unavailable Unavailable Landon RN, Nguyen Unavailable Unavailable Procedures Procedure Date Voided Encounter Coronavirus AG IA (Rapid Test) 20 Voided Encounter Advance Directives Directive Yes / No Effective Date File Name No Information Encounters Encounter Description Practice Location Reason(s) For Visit Diagnoses Date Provider Providers Copied on Encounter [facility] , [address], [place], [place], [id number], tel:[phone] [facility] [place] No Information 0 Caio Barry. [address] [place] [address], [id number], . tel:[phone] Consulting Provider: Nguyen Navarrete, [address], [place], [address]. tel:[phone] [facility] , [address], [place], [place], [address], tel:[phone] [facility] No Information 0 No Information [facility] , [address], [place], [place], [address], tel:[phone] [facility] Contact w and exposure to oth viral communicable diseases 0 Caio Barry. [address], [place], [place], [address], . tel:[phone] [facility] , [address], [place], [place], [address], tel:[phone] [facility] No Information 0 Mathew Wilkinson. [address], [place], [place], [id number], [place]. tel:[phone] Family History Family Member Type Diagnosis Age [...]
--- OUTSIDE RECORDS SUMMARY | 2025-05-15 20:45 | XMS_ITS | Referral Summary ---
Author Organization [facility] Address [address] [place] [address] Care Team Providers Care Program Director Name Role Phone Wolfgang Serrano MD Primary Care Provider [phone] Wolfgang Serrano MD Unavailable [phone] Unknown, Notinfile Unavailable Unavailable Santino Funk MD Unavailable Chuy Enriquez MD Unavailable Luis Felipe Cedillo MD Unavailable [phone] Marlene Thornton MD Unavailable Allergies No known [...] 06/22/2024 Assessment & Plan (10/05/2024 9:45 AM BUMBOATER): The patient has advanced arthritis of the [...] 2025 Assessment & Plan (11/18/2023 2:34 PM BUMBOATER): RLL nodule in a patient without clear [...] maintenance/vaccinations Assessment & Plan (11/18/2023 2:34 PM BUMBOATER): Related to hiatal hernia, reflux Sx are [...] (12/05/2019): Added automatically from request for surgery [id number] Subchondral insufficiency fracture of condyle of left [...] materials from doctor or pharmacy Sometimes 03/08/2024 [facility] Utilities Answer Date Recorded In [...] often do you attend chur ch or lutheran services? More than 4 times per year 12/16/2023 Do you belong to any clubs o r organizations such as lutheran groups, unions, fraternal or athletic groups, or [...] Health Questionnaire-2 Score 0 01/06/2024 [facility] of Occupat ional Health - Occupational Stress [...] a senior living (including now)? No 12/16/2023 PHQ-9 Answer Date [...] on file Legal Sex Male 3:25 PM BUMBOATER Gender Identity Not on file Sexual Orientation Not on file Last Filed Vital Signs Vital Sign Reading Time Taken Comments Blood Pressure 99/66 01/15/2025 3:11 PM CDT Pulse 59 01/15/2025 3:11 PM CDT Temperature 36.6 C (97.8 F) 01/15/2025 3:11 PM CDT Respiratory Rate 16 10/17/2024 11:19 AM BUMBOATER Oxygen Saturation 99% 10/17/2024 11:19 AM BUMBOATER Inhaled Oxygen Concentration - - Weight 81.6 kg (180 lb) 01/15/2025 3:11 PM CDT Height 177.8 cm (5' 10) 01/15/2025 3:11 PM CDT Body Mass Index 25.83 01/15/2025 3:11 PM CDT Plan of Treatment Not on file Medical Devices Implanted Type Area Sanitation Laborer Device Identifier Shelf Expiration Date Model / Serial / Lot Jim [employer]nee [employer]ations 201.050 Nif - [id number] Implanted:Qty: 1 on 09/22/2018 by George Sepulveda MD at [facility] al: Knee [employer] 04/09/2020 201.050 / / [id number] Subchondroplasty Knee Kit Implanted:Qty: 1 on 09/22/2018 by George Sepulveda MD at [facility] al: Knee [employer] 11/10/2020 402.203(201.0 50) / [id number] / [id number] Description:KIT CONTAINS IMP LANT: ACCUFILL, 5ML, REF# 201.050, LOT # [id number], EX: 11-10-2020 System Accumix Bone Cement - [id number] Implanted:Qty: 1 on 09/22/2018 by George Sepulveda MD at [facility] [employer] 03/28/2021 311.100 / / [id number] [employer] [id number] Palacos R+G High Viscosity Cement Bone Gentamicin Arthroplasty - [id number] Implanted:Qty: 1 on 11/24/2021 by George Sepulveda MD at [facility] Right: Knee [employer] 05/10/2024 [id number] / / [id number] [employer] [id number] Persona Cruciate Retain Knee Right 11 Narrow Component Femoral - [id number] Implanted:Qty: 1 on 11/24/2021 by George Sepulveda MD at [facility] Right: Knee [employer] 07/13/2030 [id number] / / [id number] [employer] [id number] Persona 35mm Knee Component Patellar All Poly Latex Free - [id number] Implanted:Qty: 1 on 11/24/2021 by George Sepulveda MD at [facility] Right: Knee [employer] 03/25/2029 [id number] / / [id number] [employer] [id number] Persona 14mm 30+ Mm Knee Tibia Taper Extension Stem - [id number] Implanted:Qty: 1 on 11/24/2021 by George Sepulveda MD at [facility] Right: Knee [employer] 07/27/2031 [id number] / / [id number] Jim [employer] [id number] Persona Natural Tibia Stem Knee Right 5d G Baseplate Tibial - [id number] Implanted:Qty: 1 on 11/24/2021 by George Sepulveda MD at [facility] Right: Knee [employer] 05/13/2031 [id number] / / [id number] [employer] [id number] Persona 10mm Knee Insert Articular Vivacit-E Sterile - [id number] Implanted:Qty: 1 on 11/24/2021 by George Sepulveda MD at [facility] Right: Knee [employer] 05/06/2026 [id number] / / [id number] Procedures Procedure Name Priority Date/Time Associated Diagnosis Comments CT CHEST ABDOMEN PELVIS W CONTRAST ED Urgent/IP Urgent 10/11/2023 10:12 AM BUMBOATER from Last 3 Months or Most Recently Relevant to Health Maintenance Results * CT Chest Abdomen Pelvis W Contrast (10/11/2023 10:12 AM BUMBOATER) Anatomical Region Laterality Modality Body N/A Computed Tomogra phy 10/11/2023 11:0 3 AM BUMBOATER Impressions 10/11/2023 11:03 AM BUMBOATER A 12 x 12 mm pulmonary nodule in the lateral aspect of the right costophrenic sulcus, new since 2019, is suspicious for primary lung malignancy. Electronically signed by: Jayshree Giles MD, Ph.D Narrative 10/11/2023 11:03 AM BUMBOATER EXAMINATION: Computed tomography of chest/abdomen/pelvis with intravenous [...] by: Jayshree Giles MD, Ph.D Taylor Bland REGISTERED TRAVEL NURSE IMG CT PROCEDURES Final Result from Last 3 Months or Most Recently Relevant to Health Maintenance Insurance HUMANA CHOICE MEDICARE PPO [employer] OOS MEDICARE HUMANA CHOICE MEDICARE PPO IDPA [facility] [place] [address] [facility] [place] [address] [facility] [place] [address] Advance Directives For more information, please contact: [phone] Documents on File Type Date Recorded Patient Laborer Laboratory Expl anation ADVANCE DIRECTIVE 01/10/2024 3:33 PM LIVING WILL ADVANCE DIRECTIVE 01/10/2024 3:33 PM POWER OF FIELD IRONWORKER-MEDICAL * Full Code (Latest Code Status on [...] 5:17 PM 12/30/2019 5:42 PM Care Teams Program Director Relationship Specialty Start Date End Date Wolfgang Serrano MD [address] [place] [address] PCP - General Family Medicine 08/03/24 Wolfgang Serrano MD [address] [place] [address] Family Medicine 08/03/24 Unknown, Notinfile 03/12/22 [place] [address] [address] [facility] [address] [place] [address] 03/12/22 Chuy Enriquez MD [address] [facility] [address] [place] [address] Consulting Physician Pulmonary Disease 10/13/23 Luis Felipe Cedillo MD [address] [facility] [address], [place] [address] Consulting Physician Gastroenterology 10/13/23 Marlene Thornton MD [address] [facility] [address] [address] Surgeon Vascular Surgery 11/10/23
--- OUTSIDE RECORDS SUMMARY | 2025-05-15 20:45 | XMS_ITS | Encounter Summary ---
Author Organization [facility] Address [address] [place] [address] Phone Care Team Providers Care Kelly Machine Operator Name Role Phone Santino Funk MD Primary Care Provider + Unknown, Notinfile Primary Care Provider Unavail able No, Physician Primary Care Provider Santino Funk MD Primary Care Provider + Wolfgang Serrano MD Primary Care Provider [phone] Wolfgang Serrano MD Primary Care Provider Wolfgang Serrano MD Unavailable [phone] Unknown, Notinfile Unavailable Unavailable Santino Funk MD Unavailable [phone] Chuy Enriquez MD Unavailable [phone] Luis Felipe Cedillo MD Unavailable [phone] Marlene Thornton MD Unavailable [phone] Encounter Details Date Type Department Care Team (Late st Contact Info) Description 02/15/2018 Orders Only [facility] ProviderGarett MD [address] [place] [address] Social History Tobacco Use Types Packs/Day Years Used Date Smoking Tobacco: Former Alcohol Use Standard Drinks/Week Comments Yes 0 (1 standard drink = 0.6 oz pur e alcohol) Sex and Gender Information Value Date Recorded Sex Assigned at Not on file Legal Sex Male 3:25 PM SCIENTIFIC DIVER Gender Identity Not on file Sexual Orientation Not on file documented as of this encounter Plan of Treatment Not on file documented as of this encounter Procedures Procedure [...] COVID: Suspected 12/17/2021 12/17/2021 12/17/2021 10:19 PM SCIENTIFIC DIVER documented as of this encounter Care Teams Kelly Machine Operator Relationship Specialty [place] [address] [address] [facility] [address] [place] [address] PCP - General 11/12/16 03/11/22 Unknown, Notinfile PCP - General 03/12/22 05/13/22 No, Physician PCP - General 05/14/22 09/29/22 [place] [address] [address] [place] [address] PCP - General Internal Medicine 09/30/22 05/04/23 Wolfgang Serrano MD PCP - General Family Medicine 05/05/23 08/02/24 Wolfgang Serrano MD [address] [address] PCP - General Family Medicine 08/03/24 Wolfgang Serrano MD Family Medicine 08/03/24 Unknown, Notinfile 03/12/22 [place] [address] [address] [place] [address] 03/12/22 Chuy Enriquez MD [address] [facility] [address] [place] [address] Consulting Physician Pulmonary Disease 10/13/23 Luis Felipe Cedillo MD [address] [place] [address] Consulting Physician Gastroenterology 10/13/23 Marlene Thornton MD [address] [facility] [address] [place] [address] Surgeon Vascular Surgery 11/10/23 documented as of this encounter
--- OUTSIDE RECORDS SUMMARY | 2025-05-15 20:45 | XMS_ITS | Clinical Summary ---
Author Organization [facility] Address [address] [place] [address] Care Team Providers Care Skoog Machine Operator Name Role Phone Wolfgang Serrano MD Primary Care Provider Wolfgang Serrano MD Unavailable Unknown, Notinfile Unavailable Unavailable Santino Funk MD Unavailable Chuy Enriquez MD Unavailable Luis Felipe Cedillo MD Unavailable Marlene Thornton MD Unavailable [phone] Allergies No known active allergies Medications cholecalciferol [...] 06/22/2024 Assessment & Plan (10/05/2024 9:45 AM TUBING MACHINE OPERATOR): The patient has advanced arthritis of the [...] 2025 Assessment & Plan (11/18/2023 2:34 PM TUBING MACHINE OPERATOR): RLL nodule in a patient without clear [...] maintenance/vaccinations Assessment & Plan (11/18/2023 2:34 PM TUBING MACHINE OPERATOR): Related to hiatal hernia, reflux Sx are [...] (12/05/2019): Added automatically from request for surgery [id number] Subchondral insufficiency fracture of condyle of left [...] of double vision, corrective lenses Seizures (HCC) 1998 last seizure in 1997 Asthma Cataract SOB (shortness of breath) on exertion Subchondral insufficiency fr acture of condyle of left femur ([facility]) Closed fracture of left tibi al [...] knee as current injury Vertigo Alzheimer's dementia ([facility]) Diverticulitis of colon Incontinence of urine Hypothyroidism Fatigue Vision changes Easy bruisability Frequent urination Back pain Muscle weakness Cramps of lower extremity Clotting disorder Hyperlipidemia Hypertension Enlarged prostate Stroke ([facility]) 12/09/2023 left leg works o k, [...] materials from doctor or pharmacy Sometimes 03/08/2024 [facility] Utilities Answer Date Recorded In the past 12 months has th e [employer], gas, oil, or water company threatened to [...] How often do you attend chur or taoism services? More than 4 times [...] 0 01/06/2024 [facility] - Occupational Stress Questionnaire Answer [...] a skilled nursing (including now)? No 12/16/2023 PHQ-9 Answer Date [...] on file Legal Sex Male 3:25 PM TUBING MACHINE OPERATOR Gender Identity Not on file Sexual Orientation Not on file Obstetrics History Last Filed Vital Signs Vital Sign Reading Time Taken Comments Blood Pressure 99/66 01/15/2025 3:11 PM CDT Pulse 59 01/15/2025 3:11 PM CDT Temperature 36.6 C (97.8 F) 01/15/2025 3:11 PM CDT Respiratory Rate 16 10/17/2024 11:19 AM TUBING MACHINE OPERATOR Oxygen Saturation 99% 10/17/2024 11:19 AM TUBING MACHINE OPERATOR Inhaled Oxygen Concentration - - Weight 81.6 kg (180 lb) 01/15/2025 3:11 PM CDT Height 177.8 cm (5' 10) 01/15/2025 3:11 PM CDT Body Mass Index 25.83 01/15/2025 3:11 PM CDT Plan of Treatment Health Maintenance Due Date Last Done Comments DTaP/Tdap/Td Vaccine (1 - Tdap) 1955 Hepatitis B Screening 1962 Zoster Vaccine (1 of 2) 1994 Well Visit 65+ 2009 Pneumococcal vaccine 65+ (2 of 2 - PCV) 07/11/2021 07/11/2020 Covid-19 Vaccine (3 - 2023-2 5 season) 2024 12/12/2020, 11/14/2020 Depression Screening 12/13/2024 12/14/2023, 12/14/2023, 12/07/2023, Additional history exists Influenza Vaccine (#1) 2025 07/11/2020, 2019 Fall Risk Assessment 10/17/2025 10/17/2024, 12/03/2022, 11/05/2022 Abdominal Aortic Aneurysm (A AA) Screen Completed 11/12/2023, 11/12/2023, 10/11/2023 Medical Devices Implanted Type Area Stock Associate Device Identifier Shelf Expiration Date Model / Serial / Lot Jim [employer]nee [employer]ations 201.050 Nif - [id number] Implanted:Qty: 1 on 09/22/2018 by George Sepulveda MD at [facility] al: Knee [employer] 04/09/2020 201.050 / / [id number] Subchondroplasty Knee Kit Implanted:Qty: 1 on 09/22/2018 by George Sepulveda MD at [facility] al: Knee [employer] 11/10/2020 402.203(201.0 50) / [id number] / [id number] Description:KIT CONTAINS IMP LANT: ACCUFILL, 5ML, REF# 201.050, LOT # [id number], EX: 11-10-2020 System Accumix Bone Cement - [id number] Implanted:Qty: 1 on 09/22/2018 by George Sepulveda MD at [facility] [employer] 03/28/2021 311.100 / / [id number] [employer] [id number] Palacos R+G High Viscosity Cement Bone Gentamicin Arthroplasty - [id number] Implanted:Qty: 1 on 11/24/2021 by George Sepulveda MD at [facility] Right: Knee [employer] 05/10/2024 [id number] / / [id number] Jim Us Inc [id number] Persona Cruciate Retain Knee Right 11 Narrow Component Femoral - [id number] Implanted:Qty: 1 on 11/24/2021 by George Sepulveda MD at [facility] Right: Knee [employer] 07/13/2030 [id number] / / [id number] Jim Us Inc [id number] Persona 35mm Knee Component Patellar All Poly Latex Free - [id number] Implanted:Qty: 1 on 11/24/2021 by George Sepulveda MD at [facility] Right: Knee [employer] 03/25/2029 [id number] / / [id number] [employer] [id number] Persona 14mm 30+ Mm Knee Tibia Taper Extension Stem - [id number] Implanted:Qty: 1 on 11/24/2021 by George Sepulveda MD at [facility] Right: Knee [employer] 07/27/2031 [id number] / / [id number] [employer] Inc [id number] Persona Natural Tibia Stem Knee Right 5d G Baseplate Tibial - [id number] Implanted:Qty: 1 on 11/24/2021 by George Sepulveda MD at [facility] Right: Knee [employer] 05/13/2031 [id number] / / [id number] [employer] Inc [id number] Persona 10mm Knee Insert Articular Vivacit-E Sterile - [id number] Implanted:Qty: 1 on 11/24/2021 by George Sepulveda MD at [facility] Right: Knee [employer] 05/06/2026 [id number] / / [id number] Procedures Procedure Name Priority Date/Time Associated Diagnosis Comments CT CHEST ABDOMEN PELVIS W CONTRAST ED Urgent/IP Urgent 10/11/2023 10:12 AM TUBING MACHINE OPERATOR from Last 3 Months or Most Recently Relevant to Health Maintenance Results * CT Chest Abdomen Pelvis W Contrast (10/11/2023 10:12 AM TUBING MACHINE OPERATOR) Anatomical Region Laterality Modality Body N/A Computed Tomogra phy 10/11/2023 11:0 3 AM TUBING MACHINE OPERATOR Impressions 10/11/2023 11:03 AM TUBING MACHINE OPERATOR A 12 x 12 mm pulmonary nodule in the lateral aspect of the right costophrenic sulcus, new since 2019, is suspicious for primary lung malignancy. Electronically signed by: Jayshree Giles MD, Ph.D Narrative 10/11/2023 11:03 AM TUBING MACHINE OPERATOR EXAMINATION: Computed tomography of chest/abdomen/pelvis with intravenous [...] Health Maintenance Insurance [employer] [address] [employer] OOS Member Subscriber Plan / Payer (Ef fective 2021-Present) Name:Abrahan Gtz Jr. Relation to Subscriber:Self Name:Abrahan Gtz Jr. Payer ID:[id number] (NAIC) Type: ALLIANCE Address: [address] [place] [id number] [place] [address] HUMANA CHOICE MEDICARE PPO [address] [place] [address] Advance Directives For more information, please contact: [phone] Documents on File Type Date Recorded Patient Field Trainer Expl anation ADVANCE DIRECTIVE 01/10/2024 3:33 PM LIVING WILL ADVANCE DIRECTIVE 01/10/2024 3:33 PM POWER OF DIRECTOR OF EDUCATION-MEDICAL * Full Code (Latest Code Status on [...] 5:17 PM 12/30/2019 5:42 PM Care Teams Skoog Machine Operator Relationship Specialty Start Date End Date Wolfgang Serrano MD [address] [place] [address] PCP - General Family Medicine 08/03/24 Wolfgang Serrano MD [address] [place] [address] Family Medicine 08/03/24 Unknown, Notinfile 03/12/22 [place] [address] [facility] [address] [address] [place] [address] 03/12/22 Chuy Enriquez MD [address] [facility] [address] [place] [address] Consulting Physician Pulmonary Disease 10/13/23 Luis Felipe Cedillo MD [address] [place] [address] Consulting Physician Gastroenterology 10/13/23 Marlene Thornton MD [address] [facility] [address] [place] [address] Surgeon Vascular Surgery 11/10/23
--- NOTE | 2025-05-15 20:54 | ECG_ITS ---
Test Date: 2025-05-15 21:02:03 Measurements Intervals Gabbs Rate: 68 P: 58 WV: 159 QRS: -13 QRSD: 89 T: 104 QT: 390 QTc: 416 Interpretive Statements SINUS RHYTHM WITH VENTRICULAR COUPLETS EARLY PRECORDIAL R/S TRANSITION NONSPECIFIC ST & T-WAVE ABNORMALITY- HIGH LATERAL LEADS BASELINE ARTIFACT- I, II, AVR ABNORMAL ECG Compared to ECG 01/07/2025 12:00:53 HEART RATE HAS INCREASED Ventricular COUPLETS NOW PRESENT POSSIBLE ISCHEMIA NO LONGER PRESENT Electronically Signed On 05-16-2025 06:08:50 CDT by Finn Caban D.O.
[2025-05-15 20:55] VITALS: BP 130/76; PULSE 62; RESP 17; TEMP 36.3; O2SAT 100
--- NOTE | 2025-05-16 00:04 | ED_ITS ---
HPI - Fall General Chief Complaint: Fall Stated Complaint: fall, + HS, -LOC, + thinner Time Seen by Provider: 05/15/25 23:59 Source: patient History of Present Illness HPI Narrative: Patient presents after a ground level fall. Denies loss of consciousness but tripped while walking and hit his head. On anticoagulation (Brilinta and ASA) for history of cardiac stent(s) after [place]. Took something for pain prior to arrival. States his Left hip and bottom hurt. Related Data Home Medications ?Medication ?Instructions ?Recorded ?Confirmed ?Last Taken ?Type furosemide 20 mg tablet (Lasix) 20 mg PO DAILY 08/13/23 04/24/25 02/01/24 History gabapentin 100 mg capsule 600 mg PO TID 08/13/23 04/24/25 02/01/24 History tizanidine 2 mg tablet 2 mg PO Q8H PRN Muscle Pain 08/13/23 04/24/25 02/02/24 08:00 History melatonin 10 mg tablet 10 mg PO HS PRN Sleep 10/10/23 04/24/25 02/01/24 History cholecalciferol (vitamin D3) 50 50 mcg PO DAILY 11/09/23 04/24/25 02/01/24 History mcg (2,000 unit) capsule aspirin 81 mg chewable tablet 81 mg PO DAILY 01/26/24 04/24/25 02/01/24 History cetirizine 10 mg tablet 10 mg PO DAILY 01/26/24 04/24/25 02/01/24 History rosuvastatin 40 mg tablet 40 mg PO DAILY 01/26/24 04/24/25 02/01/24 History ferrous sulfate 325 mg (65 mg 325 mg PO BID 01/06/25 04/24/25 Unknown History iron) tablet (FeroSul) mirabegron 25 mg tablet,extended 25 mg PO DAILY 01/06/25 04/24/25 Unknown History release 24 hr (Myrbetriq) tamsulosin 0.4 mg capsule 0.4 mg PO HS 01/06/25 04/24/25 Unknown History paroxetine HCl 20 mg tablet 20 mg PO QAM 02/16/25 04/24/25 02/15/25 History Allergies Allergy/AdvReac Type Severity Reaction Status Date / Time No Known Allergies Allergy Verified 04/04/25 09:54 [facility] Past Medical History Medical History History of myocardial infarction Snoring Excessive daytime sleepiness Stroke with left hemiparesis Leg wound, left Overactive bladder Aneurysm of infrarenal abdominal aorta Dyslipidemia 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 Seizure x2 in 1997 Benign prostatic hyperplasia Esophageal stricture Gastroesophageal reflux Hypothyroidism Esophageal diverticulum, acquired Colon polyp Arthritis Diverticulosis Anemia Diverticulitis Myasthenia gravis patient denies Surgical History Surgical History Hx of heart artery stent History of arthroplasty of right knee History of Noemy fundoplication History of thyroidectomy Status post dilatation of esophageal stricture Family History Family History Mother , age 85 Acute myocardial infarction Hypertension Heart disease Father , age 70 Acute myocardial infarction Chronic obstructive pulmonary disease History of blood clots Hypertension Heart disease Sibling Acute myocardial infarction Hypertension Heart disease Other Heart disease Social History Social History Social History: Surrogate medical decision maker: Alon Gtz, spouse. Code status: Full code. Smoking packs per day: 1 Smoking cigarettes per day: 20.0 Years smoked: 4 Smoking pack-years: 4.00 Smoking status: Never smoker Alcohol intake: current Drinks per week: 1 Substance use: never Substance use type: does not use Do You Feel Safe in your Home?: Yes Lack of Transportation: No Lack of Food: Never True Current Housing: I Have Housing Concerned About Future Housing: No Difficulty Paying Gas/Electric Bills: No Difficulty Paying for Meds: No Currently Unemployed: No Education: Bachelor's Degree Difficulty w/ Childcare or Family Care: No Living arrangements: with family Additional living arrangements comments: Lives in [place] with his spouse. They have 3 children. 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 Spiritual care concerns: No Exam Narrative: GENERAL: Well-appearing, well-nourished, and in no acute distress. HEAD: Normocephalic, atraumatic. EYES: Non injected, non icteric ENT: Nares clear, no rhinorrhea or epistaxis. Gross auditory acuity intact. NECK: Supple. No meningismus. CHEST: Speaking in full sentences. No respiratory distress. HEART: Regular rate and rhythm. . ABDOMEN: Soft, nondistended. No rigidity or guarding. Not peritoneal EXTREMITIES: No marked lower extremity edema. Pelvis: Stable to compression SKIN: Warm, dry, no rash. NEURO: No focal deficits. Alert and oriented. Answering questions. Following commands. Normal speech without aphasia or dysarthria. PSYCH: Normal mood and affect. Course Vital Signs Vital signs: Vital Signs Temperature 97.3 F L 05/15/25 20:55 Pulse Rate 62 05/15/25 20:55 Respiratory Rate 17 05/15/25 20:55 Blood Pressure 130/76 05/15/25 20:55 Pulse Oximetry 100 05/15/25 20:55 Oxygen Delivery Room Air 05/15/25 20:55 Temperature 97.3 F L 05/15/25 20:55 Pulse Rate 62 05/15/25 20:55 Respiratory Rate 17 05/15/25 20:55 Blood Pressure 130/76 05/15/25 20:55 Pulse Oximetry 100 05/15/25 20:55 Oxygen Delivery Room Air 05/15/25 20:55 MDM - Fall MDM Narrative Medical decision making narrative: Patient presents with left hip pain and his 'bottom hurting after a ground level fall. Hit his head; on Brilinta and ASA for hx NJ with stent(s). In the emergency department they are afebrile with vital signs within normal limits. Imaging negative for acute process. Discharged in stable condition with Rx for acetaminophen and lidocaine patches. No NSAIDs given medications on and no muscle relaxer given age. Advised follow up. Differential Diagnosis Differential diagnosis: Likely other (intracranial hemorrhage, broken sacrum/coccyx; hip fracture/dislocation; hematoma/seroma/bony contusion; intracranial hemorrhage; C spine injury) Imaging Data Attestation: I personally reviewed and interpreted this imaging study as follows: My impression: No acute fracture on my independent interpretation but one view showed questionable discontinuity of femoral head on my independent interpretation so I had it read by STat rad Radiologist's impression: Stat rad XR Pelvis: No displaced fracture or dislocation identified. Further evaluation could be performed with CT or MRI if clinically indicated. Incidental findings: Presumed phleboliths in the pelvis. Mild degenerative changes of the hips. Degenerative changes of the visualized lower lumbar spine. Stat Rad x-ray left hip: No displaced fracture or dislocation identified. Further evaluation could be performed with CT or MRI if clinically indicated. Incidental findings: Presumed phleboliths in the pelvis. XR Sacrum/Coccyx Stat Rad: No displaced fracture dislocation identified. Further evaluation could be performed with CT or MRI if clinically indicated. Presumed phleboliths in the pelvis. Degenerative changes of the visualized lower lumbar spine. 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 Impression: No acute intracranial hemorrhage or suspicious mass effect. ECG Data EKG #1: Attestation: I personally reviewed and interpreted this ECG as follows: ECG completion date: 05/15/25 ECG completion time: 21:02 Interpretation: Normal sinus rhythm at a rate of 60 beats per minute. He does have PVCs. Good R-wave progression across the precordial leads. No T-wave inversions. P interval 159. QRS 89. QT/QTC 390/416. Discharge Plan Discharge Clinical Impression: Fall, DDD (degenerative disc disease), cervical, Coccygeal pain, acute, Acute pain of left hip Patient Disposition: Home Condition: Stable Instructions: Antibiotic Form, Coccyx Injury (ED), Fall Prevention for Older Adults (ED), Degenerative Disc Disease (ED), Hip Pain (ED) Additional Instructions: No bleeding in the brain and no fractures of the bones in your neck, bones of your hip/pelvis, or your tailbone. Your likely to continue to be sore and achy. Acetaminophen/Tylenol (maximum 4000 mg per day) is safe to take. Lidocaine patches have also been prescribed. Follow-up with your primary care physician. Return to the emergency department any new or worsening symptoms. Return to the ER if you have increased pain in your back, you develop lower extremity weakness/numbness/paralysis, you have numbness or tingling in your private parts, or you are unable to control your ability to urinate/stool. Patient Language: St Helen[place] Prescriptions: New acetaminophen 500 mg capsule 1,000 mg PO Q6H PRN (Reason: pain) Qty: 30 0RF lidocaine 4 % adhesive patch,medicated 1 patch topical DAILY PRN (Reason: pain) Qty: 10 0RF No Action cholecalciferol (vitamin D3) 50 mcg (2,000 unit) capsule 50 mcg PO DAILY cetirizine 10 mg tablet 10 mg PO DAILY aspirin 81 mg Tablet,Chewable 81 mg PO DAILY rosuvastatin 40 mg Tablet 40 mg PO DAILY tamsulosin 0.4 mg capsule 0.4 mg PO HS ferrous sulfate [FeroSul] 325 mg (65 mg iron) tablet 325 mg PO BID mirabegron [Myrbetriq] 25 mg tablet extended release 24 hr 25 mg PO DAILY nitroglycerin [Nitrostat] 0.4 mg Tablet, Sublingual 0.4 mg sublingual Q5MIN PRN (Reason: Chest Pain) Qty: 20 0RF paroxetine HCl 20 mg tablet 20 mg PO QAM levothyroxine 175 mcg capsule 100 mcg PO DAILY Qty: 30 2RF furosemide [Lasix] 20 mg Tablet 20 mg PO DAILY gabapentin 100 mg capsule 600 mg PO TID tizanidine 2 mg Tablet 2 mg PO Q8H PRN (Reason: Muscle Pain) melatonin 10 mg Tablet 10 mg PO HS PRN (Reason: Sleep) pantoprazole 40 mg tablet,delayed release (DR/EC) 40 mg PO BID Qty: 60 5RF Brilinta 90 mg tablet 90 mg PO Q12HR 30 Days Qty: 60 5RF Follow-up/Referrals: Wolfgang Serrano MD [Primary Care Provider] - Time of Disposition: 03:33
--- OUTSIDE RECORDS SUMMARY | 2025-05-16 00:30 | XMS_ITS | Continuity of Care Document ---
Author Organization [facility] Address [address] [place] [address] Phone Care Team Providers Care Plating Stripper Name Role Phone Caio ADKINS, Jhonny Unavailable Unavailable Landon RN, Nguyen Unavailable Unavailable Procedures Procedure Date Voided Encounter Coronavirus AG [place] (Rapid Test) 20 Voided Encounter Advance Directives Directive Yes / No Effective Date File Name No Information Encounters Encounter Description Practice Location Reason(s) For Visit Diagnoses Date Provider Providers Copied on Encounter [facility] , [address], [place], [place], [id number], tel:[phone] [facility] No Information 0 Caio Barry. [address] [place] [address], [id number], . tel:[phone] Consulting Provider: Nguyen Navarrete, [address], [place], [address]. tel:[phone] [facility] , [address], [place], [place], [id number], tel:[phone] [facility] No Information 0 No Information [facility] , [address], [place], [place], [id number], tel:[phone] [facility] Contact w and exposure to oth viral communicable diseases 0 Caio Barry. [address], [place], [place], [id number], . tel:[phone] [facility] , [address], [place], [place], [id number], tel:[phone] [facility] No Information 0 Mathew Wilkinson. [address], [place], [place], [id number], [place]. tel:[phone] Family History Family Member Type Diagnosis Age [...]
--- OUTSIDE RECORDS SUMMARY | 2025-05-16 00:31 | XMS_ITS | Continuity of Care Document ---
Author Organization [employer] [place] Address [address] [place] [address] Phone Care Team Providers Care Shadowgraph Scale Operator Name Role Phone Grabiel SOLITARIO, Florentino [...] Re-Ed Therapeutic Exercise Hot or Cold Pack Hot or Cold [...] Therapy Neuromuscular Re-Ed Therapeutic Exercise Therapeutic Exercise Neuromuscular Re-Ed Manual [...] Pack Therapeutic Activities Neuromuscular Re-Ed Therapeutic Exercise PT Re-evaluation Hot or Cold Pack Therapeutic Exercise Therapeutic Activities Neuromuscular Re-Ed Therapeutic Activities Neuromuscular Re-Ed Therapeutic [...] Diagnoses Date Provider Providers Copied on Encounter [facility], [address], [place], [place], [address], tel:[phone] [place] No Information Jul- 2 Grabiel Florentino. . Referring Provider: George Cardenas, [address] [address], [place], [address]. tel:[phone] [facility], [place], [place], [address], tel:[phone] [place] No Information 2 Grabiel Florentino. . Referring Provider: George Cardenas, [address], [place], [address]. tel:[phone] [facility] [address], [place], [place], [address], tel:[phone] [place] No Information Jul-0 2 Grabiel Florentino. . Referring Provider: George Cardenas, [address], [place], [address]. tel:[phone] [facility], [place], [place], [address], tel:[phone] [place] No Information 3 0 2 Grabiel Florentino. . Referring Provider: George Cardenas [address], [place], [address]. tel:[phone] [facility], [place], [place], [address], [place] tel:[phone] [place] No Information 2 Grabiel Florentino. . Referring Provider: George Cardenas, [address], [place], [address]. tel:[phone] [facility], [address], [place], [place], [address], [place] tel:[phone] [place] No Information 2 Grabiel Florentino. . Referring Provider: George Cardenas, [address], [place], [address]. tel:[phone] [facility] [address], [place], [place], [address], tel:[phone] [place] No Information 2 Grabiel Florentino. . Referring Provider: George Cardenas, [address], [place], [address]. tel:[phone] [facility], [address], [place], [place], [address], [place] tel:[phone] [place] No Information 2 Grabiel Florentino. . Referring Provider: George Cardenas, [address], [place], [address]. tel:[phone] [facility] [address], [place], [place], [address], [place] tel:[phone] [place] No Information 2 Grabiel Florentino. . Referring Provider: George Cardenas, [address], [place], [address]. tel:[phone] [facility] [address], [place], [place], [address], [place] tel:[phone] [place] No Information 2 Grabiel Florentino. . Referring Provider: George Cardenas, [address], [place], [address]. tel:[phone] [facility], [address], [place], [place], [address], tel:[phone] [place] No Information 2 Grabiel Good. . Referring Provider: George Cardenas, [address] [facility] [address] [facility], [place], [address]. tel:[phone] [place] [address] [address], [place], [place], [address], tel:[phone] [place] No Information 2 Muehl Harinder. [address] [place] [address], [address], [place], [facility], . tel:[phone] Referring Provider: Carol Aceves, [address] [address], [place], [address]. tel:[phone] [place] [address] [place] [address], [place], [place], [address], tel:[phone] [place] No Information 2 Muloisl Harinder. [address] [place] [address], [address], [place], [facility], . tel:[phone] Referring Provider: Carol Aceves, [address] [place] [address], [place], [address]. tel:[phone] [place] [address] [place] [address], [place], [place], [address], tel:[phone] [place] No Information 2 Denisa Parada. . Referring Provider: Carol Aceves, [address] [facility] [address] [facility], [place], [address]. tel:[phone] [place] [address] [address] [address], [place], [place], [address], tel:[phone] [place] No Information 0 2 Denisa Parada. . Referring Provider: Carol Aceves, [address] [address], [place], [address]. tel:[phone] [facility], [address] [address], [place], [place], [address], tel:[phone] [place] No Information 2 Pitoner Tal. . Referring Provider: Carol Aceves [address] [place] [address] Suite [facility], [place], [place], [facility]. tel:[phone] [address], [place], [place], [address], tel:[phone] [place] No Information 2 Muehl Harinder. [address] [place] [address], [address], [place], [facility], . tel:[phone] Referring Provider: Luis [address] [address], [place], [facility]. tel:[phone] [address], [place], [place], [address], tel:[phone] [place] No Information 2 Muehl Harinder. [address] [place] [address], [address], [place], [facility], . tel:[phone] Referring Provider: Luis Herman [facility] [address] [facility], [place], [facility]. tel:[phone] [place] [address], [place], [place], [address], tel:[phone] [place] No Information 2 Muehl Harinder. [address] [place] [address], [address], [place], [facility], . tel:[phone] Referring Provider: Carol Aceves [address] [place] [address] [place] [address], [facility]. tel:[phone] [address], [place], [place], [address], tel:[phone] [place] No Information 2 Muehl Harinder. [address] [place] [address], [address], [place], [facility], . tel:[phone] Referring Provider: Carol Aceves, [address] [place] [address] Suite [facility], [place], [address]. tel:[phone] [place] [address], [place], [place], [address], tel:[phone] [place] No Information 7 2 Pitoner Tal. . Referring Provider: Carol Aceves, [address] [place] [address], [place], [facility]. tel:[phone], [place], [place], [address], tel:[phone] [place] No Information 2 Muehl Harinder. [address] [place] [address], [address], [place], [facility], . tel:[phone] Referring Provider: Carol Aceves, [address] [place] [address], [place], [facility]. tel:[phone] [place] [address], [place], [place], [address], tel:[phone] [place] No Information 0 2 Muehl Harinder. [address] [place] [address], [address], [place], [facility], . tel:[phone] Referring Provider: Carol Aceves, [address] [place] [address], [place], [address]. tel:[phone] [place] [address], [place], [place], [address], tel:[phone] [place] No Information 8 2 Muehl Harinder. [address] [place] [address], [address], [place], [facility], . tel:[phone] Referring Provider: Carol Aceves, [address] [place] [address], [place], [facility]. tel:[phone] [address], [place], [place], [address], tel:[phone] [place] No Information Jan-2 2 Modglin Tre. . Referring Provider: Carol Aceves, [address] [place] [address], [place], [address]. tel:[phone] [place] [address], [address] [place] [address], [place], [place], [address], tel:[phone] [place] No Information Jan-2 2 Niederhoffer Fernanda. . Referring Provider: Carol Aceves, [address] [place] [address], [place], [facility]. tel:[phone] [place] [address], [place], [place], [address], [place] tel:[phone] [place] No Information Jan-1 2 Niederhoffer Fernanda. . Referring Provider: Carol Aceves, [address] [place] [address], [place], [facility]. tel:[phone] [place] [address] [place] [address], [place], [place], [address], [place] tel:[phone] [place] No Information Jan-1 2 Niederhoffer Fernanda. . Referring Provider: Carol Aceves, [address] [place] [address], [place], [facility]. tel:[phone] [place] [address], [place], [address], [place] tel:[phone] [place] No Information Apr-0 2 Yuval Foote. [address] [place] [address], [address], [place], [facility], [place]. tel:[phone] Referring Provider: Carol Aceves [address] [place] [address], [place], [facility]. tel:[phone] [place] [address], [address] [place] [address], [place], [place], [address], [place] tel:[phone] [place] No Information Apr-0 2 Clarita Pizano. [address] [place] [address], [address], [place], [facility], . tel:[phone] Referring Provider: Carol Aceves, [address] [facility] [address] [place] [address], [facility]. tel:[phone], [place], [address], tel:[phone] [place] No Information Mar-3 0-202 2 Muehl Harinder. [address] [place] [address], [facility] [address], [place], [facility], . tel:[phone] Referring Provider: Carol Aceves, [address], [facility]. tel:[phone], [id number], tel:[phone] [place] No Information Mar-2 8-202 2 Muehl Harinder. [address] [place] [address], [address] [place] [address], [facility], . tel:[phone] Referring Provider: Carol Aceves, [address] [facility] [address] [place] [address], [facility]. tel:[phone], [id number], tel:[phone] [place] No Information Mar-2 4-202 2 Muehl Harinder. [address] [place] [address], [address] [place] [address], [facility], . tel:[phone] Referring Provider: Carol Aceves, [address] [facility] [address] [place] [address], [facility]. tel:[phone], [id number], tel:[phone] [place] No Information Mar-2 2-202 2 Muehl Harinder. [address] [place] [address], [address], [place], [facility], . tel:[phone] Referring Provider: Carol Aceves [address] [facility] [address] [place] [address], [facility]. tel:[phone] [facility] [address] [place], [place] [address], [place], [place], [address], [place] tel:[phone] [place] No Information Mar-1 6-202 2 Muehl Harinder. [address] [place] [address], [address], [place], [facility], . tel:[phone] Referring Provider: Carol Aceves, [address] [place] [address], [place], [facility]. tel:[phone] [address], [place], [place], [address], [place] tel:[phone] [place] No Information Mar-1 5-202 2 Muehl Harinder. [address] [place] [address], [address], [place], [facility], . tel:[phone] Referring Provider: Carol Aceves, [address] [place] [address], [facility]. tel:[phone] [place] [address], [place], [place], [address], [place] tel:[phone] [place] No Information Mar-1 1-202 2 Muehl Harinder. [address] [place] [address], [address], [place], [facility], . tel:[phone] Referring Provider: Carol Aceves, [address] [place] [address], [address]. tel:[phone] [facility] [address] [place] [address], [place], [place], [address], [place] tel:[phone] [facility] No Information Mar-0 4-202 2 Makler Luke. . Referring Provider: George Cardenas, [address], [address]. tel:[phone] [facility], [address], [place], [place], [address], [place] tel:[phone] [facility] No Information Mar-0 3-202 2 Makler Luke. . Referring Provider: George Cardenas, [address] [facility] [address], [place], [address]. tel:[phone] [facility] [address], [place], [place], [address], tel:[phone] [facility] No Information Feb-2 2 Makler Luke. . Referring Provider: George Cardenas, [address] [facility] [address], [place], [address]. tel:[phone] [facility], [address], [place], [place], [address], [place] tel:[phone] [facility] No Information b-2 2 Makler Luke. . Referring Provider: George Cardenas, [address] [address], [place], [address]. tel:[phone] [facility] [address] [facility] [address], [place], [place], [address], tel:[phone] [facility] No Information Feb-2 2 Makler Luke. . Referring Provider: George Cardenas, [address] [address], [place], [address]. tel:[phone] [facility], [address], [place], [place], [address], tel:[phone] [facility] No Information b-2 2 Makler Luke. . Referring Provider: George Cardenas, [address] [address], [place], [address]. tel:[phone] [facility], [address], [place], [place], [address], [place] tel:[phone] [place] Pain in right kneeEffusion, right kneeMuscle weakness (generalized) Stiffness of right knee, not elsewhere classifiedUns pecified abnormalities of gait and mobility 9 [facility] Pizano. [address] [facility], [address], [place], [place], [facility], [place]. tel:[phone] Referring Provider: Jossie Montalov, [address] [facility] [address], [place], [address]. tel:[phone] [facility] [address] [place], [place] [address], [place], [place], [address], [place] tel:[phone] [place] Pain in right kneeEffusion, right kneeMuscle weakness (generalized) Stiffness of right knee, not elsewhere classifiedUns pecified abnormalities of gait and mobility Feb-1 5-201 9 [facility] Harinder. [address] [place] [address], [address], [place], [facility], [place]. tel:[phone] Referring Provider: Jossie Montalvo, [address] [facility] [address], [place], [address]. tel:[phone] [facility] [address], [place], [place], [address], [place] tel:[phone] [place] Pain in right kneeEffusion, right kneeMuscle weakness (generalized) Stiffness of right knee, not elsewhere classifiedUns pecified abnormalities of gait and mobility Feb-1 2-201 9 Threlkeld Jacquie. . Referring Provider: Jossie Montalvo, [address] [address], [place], [address]. tel:[phone] [facility] [address], [place], [place], [address], [place] tel:[phone] [place] Pain in right kneeEffusion, right kneeMuscle weakness (generalized) Stiffness of right knee, not elsewhere classifiedUns pecified abnormalities of gait and mobility Feb-0 7-201 9 [facility] Harinder. [address] [place] [address], [address], [place], [address], [place]. tel:[phone] Referring Provider: Jossie Montalvo, [address] [facility] [address], [place], [address]. tel:[phone] [facility], [address], [place], [place], [address], [place] tel:[phone] [place] Pain in right kneeEffusion, right kneeMuscle weakness (generalized) Stiffness of right knee, not elsewhere classifiedUns pecified abnormalities of gait and mobility Feb-0 9 Muehl Harinder. [address] [facility], [address], [place], [address], [place]. tel:[phone] Referring Provider: Jossie Montalvo, [address], [place], [address]. tel:[phone] [facility] [address] [place], [place] [address], [place], [place], [address], [place] tel:[phone] [place] Pain in right kneeEffusion, right kneeMuscle weakness (generalized) Stiffness of right knee, not elsewhere classifiedUns pecified abnormalities of gait and mobility 9 Muehl Harinder. [address] [place] [address], [facility] [address], [place], [facility], [place]. tel:[phone] Referring Provider: Jossie Montalvo, [address] [facility] [address] [facility], [place], [address]. tel:[phone] [facility] [address] [place] [address], [place], [place], [address], [place] tel:[phone] [place] Pain in right kneeEffusion, right kneeMuscle weakness (generalized) Stiffness of right knee, not elsewhere classifiedUns pecified abnormalities of gait and mobility 9 Muehl Harinder. [address] [facility], [address], [place], [address], [place]. tel:[phone] Referring Provider: Jossie Montalvo, [address], [place], [address]. tel:[phone] [facility] [address], [place], [place], [address], [place] tel:[phone] [place] Pain in right kneeEffusion, right kneeMuscle weakness (generalized) Stiffness of right knee, not elsewhere classifiedUns pecified abnormalities of gait and mobility 9 Muehl Harinder. [address] [facility], [address], [place], [address], [place]. tel:[phone] Referring Provider: Jossie Montalvo, [address], [place], [address]. tel:[phone] [facility] [address], [place], [place], [address], [place] tel:[phone] [place] Pain in right kneeEffusion, right kneeMuscle weakness (generalized) Stiffness of right knee, not elsewhere classifiedUns pecified abnormalities of gait and mobility Dec-2 8201 8 Muehl Harinder. [address] [facility], [address], [place], [facility], [place]. tel:[phone] Referring Provider: Jossie Montalvo, [address], [place], [address]. tel:[phone] [facility] [address], [place], [place], [address], [place] tel:[phone] [place] Pain in right kneeEffusion, right kneeMuscle weakness (generalized) Stiffness of right knee, not elsewhere classifiedUns pecified abnormalities of gait and mobility Dec-2 201 8 Maddie Chavez . Referring Provider: Jossie Montalvo [address], [place], [address]. tel:[phone] [facility] [address], [place], [place], [address], [place] tel:[phone] [place] Pain in right kneeEffusion, right kneeMuscle weakness (generalized) Stiffness of right knee, not elsewhere classifiedUns pecified abnormalities of gait and mobility Dec-2 8 Clarita Pizano. [address] [facility], [address], [place], [address], [place]. tel:[phone] Referring Provider: Jossie Montalvo, [address], [place], [address]. tel:[phone] [facility] [address], [place], [place], [address], [place] tel:[phone] [place] Pain in right kneeEffusion, right kneeMuscle weakness (generalized) Stiffness of right knee, not elsewhere classifiedUns pecified abnormalities of gait and mobility Dec-2 0201 8 Muehl Harinder. [address] [facility], [address], [place], [address], [place]. tel:[phone] Referring Provider: [address], [place], [address]. tel:[phone] Family History Family Member Type Diagnosis Age At Onset No Information Payers Payer name Insurance type Covered green party ID Authordon johnson(s) [facility] [id number] [facility] [id number] Social History Type Description Quantity Date Captured [...]
--- OUTSIDE RECORDS SUMMARY | 2025-05-16 00:31 | XMS_ITS | Referral Summary ---
Author Organization [facility] Address [address] [place] [address] Care Team Providers Care Leather Dresser Name Role Phone Wolfgang Serrano MD Primary Care Provider [phone] Wolfgang Serrano MD Unavailable [phone] Unknown, Notinfile Unavailable Unavailable Santino Funk MD Unavailable Chuy Enriquez MD Unavailable [phone] Luis Felipe Cedillo MD Unavailable [phone] Marlene Thornton MD Unavailable Allergies No known [...] 06/22/2024 Assessment & Plan (10/05/2024 9:45 AM STONE CHIMNEY MASON): The patient has advanced arthritis of the [...] 2025 Assessment & Plan (11/18/2023 2:34 PM STONE CHIMNEY MASON): RLL nodule in a patient without clear [...] maintenance/vaccinations Assessment & Plan (11/18/2023 2:34 PM STONE CHIMNEY MASON): Related to hiatal hernia, reflux Sx are [...] (12/05/2019): Added automatically from request for surgery [id number] Subchondral insufficiency fracture of condyle of left [...] materials from doctor or pharmacy Sometimes 03/08/2024 [facility] Utilities Answer Date Recorded In the [...] Recorded Patient Health Questionnaire-2 Score 0 01/06/2024 [facility] [place] of Occupat ional Health - Occupational Stress [...] in a correction (including now)? No 12/16/2023 PHQ-9 Answer Date [...] on file Legal Sex Male 3:25 PM STONE CHIMNEY MASON Gender Identity Not on file Sexual Orientation Not on file Last Filed Vital Signs Vital Sign Reading Time Taken Comments Blood Pressure 99/66 01/15/2025 3:11 PM CDT Pulse 59 01/15/2025 3:11 PM CDT Temperature 36.6 C (97.8 F) 01/15/2025 3:11 PM CDT Respiratory Rate 16 10/17/2024 11:19 AM STONE CHIMNEY MASON Oxygen Saturation 99% 10/17/2024 11:19 AM STONE CHIMNEY MASON Inhaled Oxygen Concentration - - Weight 81.6 kg (180 lb) 01/15/2025 3:11 PM CDT Height 177.8 cm (5' 10) 01/15/2025 3:11 PM CDT Body Mass Index 25.83 01/15/2025 3:11 PM CDT Plan of Treatment Not on file Medical Devices Implanted Type Area Screw Machine Repairer Device Identifier Shelf Expiration Date Model / Serial / Lot Jim Knee [employer]ations 201.050 Nif - [id number] Implanted:Qty: 1 on 09/22/2018 by George Sepulveda MD at [facility] al: Knee [employer]ations 04/09/2020 201.050 / / [id number] Subchondroplasty Knee Kit Implanted:Qty: 1 on 09/22/2018 by George Sepulveda MD at [facility] al: Knee [employer]ations 11/10/2020 402.203(201.0 50) / [id number] / [id number] Description:KIT CONTAINS IMP LANT: ACCUFILL, 5ML, REF# 201.050, LOT # [id number], EX: 11-10-2020 System Accumix Bone Cement - [id number] Implanted:Qty: 1 on 09/22/2018 by George Sepulveda MD at [facility] Jim [employer]nee [employer]ations 03/28/2021 311.100 / / [id number] [employer] [id number] Palacos R+G High Viscosity Cement Bone Gentamicin Arthroplasty - [id number] Implanted:Qty: 1 on 11/24/2021 by George Sepulveda MD at [facility] Right: Knee [employer] 05/10/2024 [id number] / / [id number] Jim Us Inc [id number] Persona Cruciate Retain Knee Right 11 Narrow Component Femoral - [id number] Implanted:Qty: 1 on 11/24/2021 by George Sepulveda MD at [facility] Right: Knee [employer] Inc 07/13/2030 [id number] / / [id number] Jim Us Inc [id number] Persona 35mm Knee Component Patellar All Poly Latex Free - [id number] Implanted:Qty: 1 on 11/24/2021 by George Sepulveda MD at [facility] Right: Knee [employer] 03/25/2029 [id number] / / [id number] Jim Us Inc [id number] Persona 14mm 30+ Mm Knee Tibia Taper Extension Stem - [id number] Implanted:Qty: 1 on 11/24/2021 by George Sepulveda MD at [facility] Right: Knee [employer] Inc 07/27/2031 [id number] / / [id number] Jim [employer] [id number] Persona Natural Tibia Stem Knee Right 5d G Baseplate Tibial - [id number] Implanted:Qty: 1 on 11/24/2021 by George Sepulveda MD at [facility] Right: Knee [employer] Inc 05/13/2031 [id number] / / [id number] Jim [employer] Inc [id number] Persona 10mm Knee Insert Articular Vivacit-E Sterile - [id number] Implanted:Qty: 1 on 11/24/2021 by George Sepulveda MD at [facility] Right: Knee [employer] 05/06/2026 [id number] / / [id number] Procedures Procedure Name Priority Date/Time Associated Diagnosis Comments CT CHEST ABDOMEN PELVIS W CONTRAST ED Urgent/IP Urgent 10/11/2023 10:12 AM STONE CHIMNEY MASON from Last 3 Months or Most Recently Relevant to Health Maintenance Results * CT Chest Abdomen Pelvis W Contrast (10/11/2023 10:12 AM STONE CHIMNEY MASON) Anatomical Region Laterality Modality Body N/A Computed Tomogra phy 10/11/2023 11:0 3 AM STONE CHIMNEY MASON Impressions 10/11/2023 11:03 AM STONE CHIMNEY MASON A 12 x 12 mm pulmonary nodule in the lateral aspect of the right costophrenic sulcus, new since 2019, is suspicious for primary lung malignancy. Electronically signed by: Jayshree Giles MD, Ph.D Narrative 10/11/2023 11:03 AM STONE CHIMNEY MASON EXAMINATION: Computed tomography of chest/abdomen/pelvis with intravenous [...] by: Jayshree Giles MD, Ph.D Taylor Bland CONSERVATION EDUCATOR IMG CT PROCEDURES Final Result from Last 3 Months or Most Recently Relevant to Health Maintenance Insurance HUMANA CHOICE MEDICARE PPO Last Second Tickets OOS MEDICARE HUMANA CHOICE MEDICARE PPO [place] [facility] [place] [address] [facility] [place] [address] [facility] [place] [address] Advance Directives For more information, please contact: [phone] Documents on File Type Date Recorded Patient Barge Worker Expl anation ADVANCE DIRECTIVE 01/10/2024 3:33 PM LIVING WILL ADVANCE DIRECTIVE 01/10/2024 3:33 PM POWER OF MARINE SERVICE MANAGER-MEDICAL * Full Code (Latest Code Status on [...] 5:17 PM 12/30/2019 5:42 PM Care Teams Leather Dresser Relationship Specialty Start Date End Date Wolfgang Serrano MD [address] [place] [address] PCP - General Family Medicine 08/03/24 Wolfgang Serrano MD [address] [place] [address] Family Medicine 08/03/24 Unknown, Notinfile 03/12/22 [place] [address] [address] [facility] [address] [place] [address] 03/12/22 Chuy Enriquez MD [address] [facility] [address] [place] [address] Consulting Physician Pulmonary Disease 10/13/23 Luis Felipe Cedillo MD [address] [facility] [address] [place] [address] Consulting Physician Gastroenterology 10/13/23 Marlene Thornton MD [address] [facility] [address], [place] [address] Surgeon Vascular Surgery 11/10/23
--- OUTSIDE RECORDS SUMMARY | 2025-05-16 00:31 | XMS_ITS | Clinical Summary ---
Author Organization [facility] Address [address] [place] [address] Care Team Providers Care Map And Chart Mounter Name Role Phone Santino Paris MD Primary Care Provider [phone] Source Comments [facility],non-owned Affiliates and Associated Physician Practices is amultiple site organization consisting of ambulatory clinics and hospital sitesin [place], [place], [place] and [place]. This disclosure is being madepursuant to the Care Everywhere program and may not contain all informatio navailable regarding this patient. 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 [employer] 05/02/2021 [id number] / [id number] / Lens Iol +21.5 Nate Hpt C Bcnvx [facility] - [id number] Implanted:Qty: 1 on 06/22/2018 by Tyrel Ash MD at [facility] [employer] 04/30/2021 [id number] / [id number] / Insurance MEDICARE MEDICARE Advance Directives * [...] 8:45 AM 06/07/2018 11:08 AM Care Teams Map And Chart Mounter Relationship Specialty [place] [address] [address] [facility] [address] [place] [address] [facility] - General 05/12/18
--- OUTSIDE RECORDS SUMMARY | 2025-05-16 00:31 | XMS_ITS | Encounter Summary ---
Author Organization [facility] Address [address] [place] [address] Phone Care Team Providers Care Electrical Accessories Assembler Name Role Phone Santino Funk MD Primary Care Provider + Unknown, Notinfile Primary Care Provider Unavail able No, Physician Primary Care Provider Santino Funk MD Primary Care Provider + Wolfgang Serrano MD Primary Care Provider Wolfgang Serrano MD Primary Care Provider Wolfgang Serrano MD Unavailable [phone] Unknown, Notinfile Unavailable Unavailable Santino Funk MD Unavailable [phone] Chuy Enriquez MD Unavailable [phone] Luis Felipe Cedillo MD Unavailable [phone] Marlene Thornton MD Unavailable [phone] Encounter Details Date Type Department Care Team (Late st Contact Info) Description 02/15/2018 Orders Only [facility] ProviderGarett MD [address] [place] [address] Social History Tobacco Use Types Packs/Day Years Used Date Smoking Tobacco: Former Alcohol Use Standard Drinks/Week Comments Yes 0 (1 standard drink = 0.6 oz pur e alcohol) Sex and Gender Information Value Date Recorded Sex Assigned at Not on file Legal Sex Male 3:25 PM ACTIVITIES THERAPIST Gender Identity Not on file Sexual [...] COVID: Suspected 12/17/2021 12/17/2021 12/17/2021 10:19 PM ACTIVITIES THERAPIST documented as of this encounter Care Teams Electrical Accessories Assembler Relationship Specialty [place] [address] [address] [facility] [address] [place] [address] PCP - General 11/12/16 03/11/22 Unknown, Notinfile PCP - General 03/12/22 05/13/22 No, Physician PCP - General 05/14/22 09/29/22 [place] [address] [address] [place] [address] PCP - General Internal Medicine 09/30/22 05/04/23 Wolfgang Serrano MD PCP - General Family Medicine 05/05/23 08/02/24 Wolfgang Serrano MD [address] [address] PCP - General Family Medicine 08/03/24 Wolfgang Serrano MD Family Medicine 08/03/24 Unknown, Notinfile 03/12/22 [place] [address] [address] [place] [address] 03/12/22 Chuy Enriquez MD [address] [facility] [facility] [address] [place] [address] Consulting Physician Pulmonary Disease 10/13/23 Luis Felipe Cedillo MD [address] [place] [address] Consulting Physician Gastroenterology 10/13/23 Marlene Thornton MD [address] [facility] [address] [place] [address] Surgeon Vascular Surgery 11/10/23 documented as of this encounter
--- OUTSIDE RECORDS SUMMARY | 2025-05-16 00:31 | XMS_ITS | Clinical Summary ---
Author Organization [facility] Address [address] [place] [address] Care Team Providers Care Finance Business Partner Name Role Phone Wolfgang Serrano MD Primary Care Provider Wolfgang Serrano MD Unavailable [phone] Unknown, Notinfile Unavailable Unavailable Santino Funk MD Unavailable Chuy Enriquez MD Unavailable [phone] Luis Felipe Cedillo MD Unavailable [phone] Marlene Thornton MD Unavailable [phone] Allergies No known active allergies Medications cholecalciferol [...] 06/22/2024 Assessment & Plan (10/05/2024 9:45 AM HIGH SCHOOL INDUSTRIAL ARTS TEACHER): The patient has advanced arthritis of the [...] 2025 Assessment & Plan (11/18/2023 2:34 PM HIGH SCHOOL INDUSTRIAL ARTS TEACHER): RLL nodule in a patient without clear [...] maintenance/vaccinations Assessment & Plan (11/18/2023 2:34 PM HIGH SCHOOL INDUSTRIAL ARTS TEACHER): Related to hiatal hernia, reflux Sx are [...] (12/05/2019): Added automatically from request for surgery [id number] Subchondral insufficiency fracture of condyle of left [...] of condyle of left femur ([facility]) Closed fracture of left tibi al [...] current injury Vertigo Alzheimer's dementia ([facility]) Diverticulitis of colon Incontinence of urine Hypothyroidism Fatigue Vision changes Easy bruisability Frequent urination Back pain Muscle weakness Cramps of lower extremity Clotting disorder Hyperlipidemia Hypertension Enlarged prostate Stroke ([facility]) 12/09/2023 left leg works o k, [...] materials from doctor or pharmacy Sometimes 03/08/2024 [facility] Utilities Answer Date Recorded In the past 12 months has th e [employer], gas, oil, or water company threatened to [...] How often do you attend chur or mormonism services? More than 4 times [...] Recorded Patient Health Questionnaire-2 Score 0 01/06/2024 [facility] - Occupational Stress Questionnaire Answer [...] in a detention (including now)? 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 TEACHER Gender Identity Not on file Sexual Orientation Not on file Obstetrics History Last Filed Vital Signs Vital Sign Reading Time Taken Comments Blood Pressure 99/66 01/15/2025 3:11 PM CDT Pulse 59 01/15/2025 3:11 PM CDT Temperature 36.6 C (97.8 F) 01/15/2025 3:11 PM CDT Respiratory Rate 16 10/17/2024 11:19 AM HIGH SCHOOL INDUSTRIAL ARTS TEACHER Oxygen Saturation 99% 10/17/2024 11:19 AM HIGH SCHOOL INDUSTRIAL ARTS TEACHER Inhaled Oxygen Concentration - - Weight 81.6 [...] 11/12/2023, 10/11/2023 Medical Devices Implanted Type Area Draw Bench Operator Device Identifier Shelf Expiration Date Model / Serial / Lot Jim [employer]nee [employer]ations 201.050 Nif - [id number] Implanted:Qty: 1 on 09/22/2018 by George Sepulveda MD at [facility] al: Knee [employer] 04/09/2020 201.050 / / [id number] Subchondroplasty Knee Kit Implanted:Qty: 1 on 09/22/2018 by George Sepulveda MD at [facility] al: Knee [employer] 11/10/2020 402.203(201.0 50) / [id number] / [id number] Description:KIT CONTAINS IMP LANT: ACCUFILL, 5ML, REF# 201.050, LOT # [id number], EX: 11-10-2020 System Accumix Bone Cement - [id number] Implanted:Qty: 1 on 09/22/2018 by George Sepulveda MD at [facility] [employer] 03/28/2021 311.100 / / [id number] [employer] [id number] Palacos R+G High Viscosity Cement Bone Gentamicin Arthroplasty - [id number] Implanted:Qty: 1 on 11/24/2021 by George Sepulveda MD at [facility] Right: Knee [employer] 05/10/2024 [id number] / / [id number] [employer] 08-0710-132-02 Persona Cruciate Retain Knee Right 11 Narrow Component Femoral - [id number] Implanted:Qty: 1 on 11/24/2021 by George Sepulveda MD at [facility] Right: Knee [employer] 07/13/2030 [id number] / / [id number] [employer] [id number] Persona 35mm Knee Component Patellar All Poly Latex Free - [id number] Implanted:Qty: 1 on 11/24/2021 by George Sepulveda MD at [facility] Right: Knee [employer] 03/25/2029 [id number] / / [id number] [employer] [id number] Persona 14mm 30+ Mm Knee Tibia Taper Extension Stem - [id number] Implanted:Qty: 1 on 11/24/2021 by George Sepulveda MD at [facility] Right: Knee [employer] 07/27/2031 [id number] / / [id number] [employer] [id number] Persona Natural Tibia Stem Knee Right 5d G Baseplate Tibial - [id number] Implanted:Qty: 1 on 11/24/2021 by George Sepulveda MD at [facility] Right: Knee [employer] 05/13/2031 [id number] / / [id number] [employer] [id number] Persona 10mm Knee Insert Articular Vivacit-E Sterile - [id number] Implanted:Qty: 1 on 11/24/2021 by George Sepulveda MD at [facility] Right: Knee [employer] 05/06/2026 [id number] / / [id number] Procedures Procedure Name Priority Date/Time Associated Diagnosis Comments CT CHEST ABDOMEN PELVIS W CONTRAST ED Urgent/IP Urgent 10/11/2023 10:12 AM HIGH SCHOOL INDUSTRIAL ARTS TEACHER from Last 3 Months or Most Recently Relevant to Health Maintenance Results * CT Chest Abdomen Pelvis W Contrast (10/11/2023 10:12 AM HIGH SCHOOL INDUSTRIAL ARTS TEACHER) Anatomical Region Laterality Modality Body N/A Computed Tomogra phy 10/11/2023 11:0 3 AM HIGH SCHOOL INDUSTRIAL ARTS TEACHER Impressions 10/11/2023 11:03 AM HIGH SCHOOL INDUSTRIAL ARTS TEACHER A 12 x 12 mm pulmonary nodule in the lateral aspect of the right costophrenic sulcus, new since 2019, is suspicious for primary lung malignancy. Electronically signed by: Jayshree Giles MD, Ph.D Narrative 10/11/2023 11:03 AM HIGH SCHOOL INDUSTRIAL ARTS TEACHER EXAMINATION: Computed tomography of chest/abdomen/pelvis with intravenous [...] Health Maintenance Insurance [employer] [address] [employer] OOS Member Subscriber Plan / Payer (Ef fective 2021-Present) Name:Abrahan Gtz Jr. Relation to Subscriber:Self Name:Abrahan Gtz Jr. Payer ID:[id number] (NAIC) Type: ALLIANCE Address: [address] [place] [id number] [place] [address] HUMANA CHOICE MEDICARE PPO [address] [place] [address] Advance Directives For more information, please contact: [phone] Documents on File Type Date Recorded Patient Temperature Regulator Pyrometer Expl anation ADVANCE DIRECTIVE 01/10/2024 3:33 PM LIVING WILL ADVANCE DIRECTIVE 01/10/2024 3:33 PM POWER OF WALLBOARD WORKER-MEDICAL * Full Code (Latest Code Status on [...] 5:17 PM 12/30/2019 5:42 PM Care Teams Finance Business Partner Relationship Specialty Start Date End Date Wolfgang Serrano MD [address] [place] [address] PCP - General Family Medicine 08/03/24 Wolfgang Serrano MD [address] [place] [address] Family Medicine 08/03/24 Unknown, Notinfile 03/12/22 [place] [address] [facility] [address] [place] [address] 03/12/22 Chuy Enriquez MD [address] [facility] [address] [place] [address] Consulting Physician Pulmonary Disease 10/13/23 Luis Felipe Cedillo MD [address] [place] [address] Consulting Physician Gastroenterology 10/13/23 Marlene Thornton MD [address] [facility] [address] [place] [address] Surgeon Vascular Surgery 11/10/23
[2025-05-16] MEDS: HYDROcodone/acetaminophen (*CRX) 5-325 MG TABLET 1 TAB PO (01:02)
== END 2025-05-16 03:58 | disposition home or self-care (01) ==
PROVIDERS: Emergency Provider Student in an Organized Health Care Education/Training Program; PCP Family Medicine
DX: S79.912A Unspecified injury of left hip, initial encounter (principal); S39.92XA Unspecified injury of lower back, initial encounter; M50.30 Other cervical disc degeneration, unspecified cervical region; I25.2 Old myocardial infarction; I69.354 Hemiplegia and hemiparesis following cerebral infarction affecting left non-dominant side; E89.0 Postprocedural hypothyroidism; N32.81 Overactive bladder; N40.0 Benign prostatic hyperplasia without lower urinary tract symptoms; K21.9 Gastro-esophageal reflux disease without esophagitis; M19.90 Unspecified osteoarthritis, unspecified site; F17.210 Nicotine dependence, cigarettes, uncomplicated; Z95.5 Presence of coronary angioplasty implant and graft; Z96.651 Presence of right artificial knee joint; Z86.0100 Personal history of colon polyps, unspecified; Z86.2 Personal history of diseases of the blood and blood-forming organs and certain disorders involving the immune mechanism; Z79.82 Long term (current) use of aspirin; Z79.02 Long term (current) use of antithrombotics/antiplatelets; R94.31 Abnormal electrocardiogram [ECG] [EKG]; W01.0XXA Fall on same level from slipping, tripping and stumbling without subsequent striking against object, initial encounter
CPT/HCPCS: 70450; 72125; 72220; 73502; 93005; 99212; 99284; A9270; G0463

== ENCOUNTER 2025-05-31 09:36 | Outpatient (CLI) | payer MEDICARE, SELFPAY ==
--- NOTE | 2025-05-31 | ECHO_ITS ---
Patient Info Name: Abrahan Gtz Age: 79 years : 1945 Gender: Male Ht: 70 in Wt: 180 lbs BSA: 2.02 m2 HR: 62 bpm BP: 133 / 91 mmHg Technical Quality: Good Exam Date: 05/31/2025 11:59 AM Patient Status: O Admit Date: 05/31/2025 Exam Type: CA echo doppler color flow Complete two-dimensional, color flow and Doppler transthoracic echocardiogram is performed. Staff Referring Physician: Finn Caban DO Work Checker: Aurora Vera Attending Provider: Ramón White Summary 1. Complete two-dimensional, color flow and Doppler transthoracic echocardiogram is performed. 2. Left ventricular chamber dimension is mildly enlarged. 3. Left ventricular systolic function is normal, estimated at 50-55. 4. The left ventricular diastolic function is normal. 5. E/e' 8 is minimally elevated. 6. Left atrial chamber dimension is mildly enlarged. 7. There is moderate aortic valve sclerosis. 8. There is moderate mitral valve regurgitation. 9. There is mild tricuspid valve regurgitation. 10. No pulmonary hypertension, estimated pulmonary arterial systolic pressure is 31 mmHg. 11. There is trace pulmonic regurgitation. Left Ventricle E/e' 8 is minimally elevated. Left ventricular chamber dimension is mildly enlarged. Left ventricular systolic function is normal, estimated at 50-55. The left ventricular diastolic function is normal. Right Ventricle Right ventricular chamber dimension is normal. Right ventricular systolic function is normal and with normal TAPSE 2.7 cm. Left Atria Left atrial chamber dimension is mildly enlarged. Right Atria Right atrial chamber dimension is normal. Aortic Valve The aortic valve is trileaflet. There is moderate aortic valve sclerosis. There is no aortic valve stenosis. There is no aortic valve regurgitation. Pulmonic Valve There is trace pulmonic regurgitation. Mitral Valve There is no mitral valve stenosis. There is moderate mitral valve regurgitation. Tricuspid Valve There is mild tricuspid valve regurgitation. No pulmonary hypertension, estimated pulmonary arterial systolic pressure is 31 mmHg. Pericardium/Pleural There is no pericardial effusion. Inferior Vena Cava Normal inferior vena cava with >50% collapse upon inspiration consistent with normal right atrial pressure, 5 mmHg. Aorta The aortic root size at the sinus of Valsalva is normal. Left Ventricular Outflow Tract Name Value Normal LVOT 2D LVOT Diameter 2.2 cm LVOT Doppler LVOT Peak Velocity 66 cm/s LVOT Peak Gradient 2 mmHg LVOT Mean Gradient 1 mmHg LVOT VTI 17 cm LVOT VTI/AV VTI Ratio 0.7 LVOT Stroke Volume 63 ml LVOT CO 10.3 l/min LVOT CI 5.1 l/min/m2 Pulmonic Valve Name Value Normal PV Doppler PV Peak Velocity 112 cm/s PV Peak Gradient 5 mmHg Mitral Valve Name Value Normal MV Diastolic Function MV E Peak Velocity 54 cm/s MV A Peak Velocity 53 cm/s MV E/A 1.0 MV Decel Time (PW) 418 ms MV Annular TDI MV E/e' (Septal) 9.4 MV E/e' (Lateral) 7.3 MV E/e' (Average) 8.3 Tricuspid Valve Name Value Normal TV Regurgitation Doppler TR Peak Velocity 254 cm/s TR Peak Gradient 26 mmHg Estimated PAP/RSVP RA Pressure 5 mmHg <=5 PA Systolic Pressure 31 mmHg <36 RV Systolic Pressure 31 mmHg <36 TV Annular TDI TV Lateral Sheryl s' Velocity 11.9 cm/s >=9.5 Aorta Name Value Normal Ascending Aorta Ao Root Diameter (MM) 3.2 cm Ao Root Diam Index (MM) 1.6 cm/m2 Aortic Valve Name Value Normal AV Doppler AV Peak Velocity 95 cm/s AV Peak Gradient 4 mmHg AV Mean Gradient 2 mmHg AV VTI 24 cm AV Area (Cont Eq VTI) 2.6 cm2 >=3.0 AV Area (Cont Eq Anselmo) 2.6 cm2 AV DI (Anselmo) 0.70 AV Regurgitation 2D LVOT Area 3.8 cm2 Ventricles Name Value Normal LV Dimensions 2D/MM IVS Diastolic Thickness (2D) 1.0 cm 0.6-1.0 LVID Diastole (2D) 4.7 cm 4.2-5.8 LVIW Diastolic Thickness (2D) 0.9 cm 0.6-1.0 LVID Systole (2D) 3.5 cm 2.5-4.0 LVOT Diameter 2.2 cm LV Mass (2D Cubed) 147.05 g 88.00-224.00 LV Mass Index (2D Cubed) 73 g/m2 49-115 Relative Wall Thickness (2D) 0.38 <=0.42 LV Fractional Shortening/Ejection Fraction 2D/MM LV Fractional Shortening (2D) 26 % 25-43 LV EF (2D Teichholz) 51 % LV Diastolic Volume (4C MOD) 161 ml LV EF (4C MOD) 41 % LV Diastolic Volume (2C MOD) 162 ml LV EF (2C MOD) 49 % LV Diastolic Volume (BP MOD) 173 ml 62-150 LV Diastolic Volume Index (BP MOD) 86 ml/m2 34-74 LV Systolic Volume (BP MOD) 91 ml 21-61 LV Systolic Volume Index (BP MOD) 45 ml/m2 11-31 LV EF (BP MOD) 47 % 52-72 LV Diastolic Length (4C) 8.5 cm LV Systolic Length (4C) 7.4 cm LV Stroke Volume (4C MOD) 65 ml RV Dimensions 2D/MM RVID Diastole (2D) 4.7 cm 2.1-3.5 Atria Name Value Normal LA Dimensions LA Dimension (MM) 4.7 cm 3.0-4.0 LA Volume (4C A-L) 78 ml LA Volume (BP A-L) 75 ml RA Dimensions RA Systolic Major [place] Length (4C) 5.2 cm 2.1-2.7 RA Area (4C) 17.0 cm2 <=18.0 Report Signatures
--- NOTE | ~2025-05-31 | US_ITS ---
EXAMINATION: US carotid duplex BI DATE: 05/31/2025 11:20 INDICATION: Cerebral infarction TECHNIQUE: Grayscale, color Doppler, and pulsed Doppler images of the cervical carotid arteries were obtained. The degree of vessel stenosis is placed in one of the following categories: normal, <50%, 50-69%, >=70% but less than near- occlusion, near-occlusion, or total occlusion. Note that percent stenosis relative to normal distal artery lumen diameter is indirectly measured from velocity measurements as described by Allen, et al. Radiology 2003; 229:340-346. COMPARISON: None. FINDINGS: RIGHT: The right common carotid artery (CCA) peak systolic velocity (PSV) is 50 cm/s. The right internal carotid artery (ICA) PSV is 50 cm/s. The right ICA end- diastolic velocity (EDV) is 18 cm/s. The right ICA/CCA PSV ratio is 1.0. Grayscale and color Doppler images yield an estimate of <50% diameter reduction from plaque in the ICA. The external carotid artery (ECA) PSV is 73 cm/s. There is antegrade flow in the right vertebral artery. LEFT: The left CCA PSV is 71 cm/s. The left ICA PSV is 47 cm/s. The left ICA EDV is 17 cm/s. The left ICA/CCA PSV ratio is 0.7. Grayscale and color Doppler images yield an estimate of <50% diameter reduction from plaque in the ICA. The ECA PSV is 58 cm/s. There is antegrade flow in the left vertebral artery. IMPRESSION: 1. <50% stenosis from minimal plaque in the right internal carotid artery. 2. <50% stenosis from small amount of plaque in the left internal carotid artery. Reviewed, dictated and finalized at location A. IMPRESSION: 1. <50% stenosis from minimal plaque in the right internal carotid artery. 2. <50% stenosis from small amount of plaque in the left internal carotid arter y.
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
--- OUTSIDE RECORDS SUMMARY | 2025-05-31 10:07 | XMS_ITS | Clinical Summary ---
Author Organization [facility] Address [address] [place] [address] Care Team Providers Care Senior Staff Specialized Employment Name Role Phone Wolfgang Serrano MD Primary Care Provider Wolfgang Serrano MD Unavailable [phone] Unknown, Notinfile Unavailable Unavailable Santino Funk MD Unavailable Chuy Enriquez MD Unavailable [phone] Luis Felipe Cedillo MD Unavailable [phone] Marlene Thornton MD Unavailable Allergies No known [...] 06/22/2024 Assessment & Plan (10/05/2024 9:45 AM KNIFE FINISHER): The patient has advanced arthritis of the [...] 2025 Assessment & Plan (11/18/2023 2:34 PM KNIFE FINISHER): RLL nodule in a patient without clear [...] maintenance/vaccinations Assessment & Plan (11/18/2023 2:34 PM KNIFE FINISHER): Related to hiatal hernia, reflux Sx are [...] (12/05/2019): Added automatically from request for surgery [id number] Subchondral insufficiency fracture of condyle of left [...] of condyle of left femur ([facility]) Closed fracture of left tibi al [...] current injury Vertigo Alzheimer's dementia ([facility]) Diverticulitis of colon Incontinence of urine Hypothyroidism Fatigue Vision changes Easy bruisability Frequent urination Back pain Muscle weakness Cramps of lower extremity Clotting disorder Hyperlipidemia Hypertension Enlarged prostate Stroke ([facility]) 12/09/2023 left leg works o k, [...] from doctor or pharmacy Sometimes 03/08/2024 [facility] Utilities Answer Date Recorded In the past 12 months has th e Cy[employer], gas, oil, or water company threatened to shut off services in your home? No 12/16/2023 Social Connection and Isolation Panel Answer Date Recorded In a typical week, [...] Recorded Patient Health Questionnaire-2 Score 0 01/06/2024 [facility] - [...] in a custodial (including now)? No 12/16/2023 PHQ-9 Answer Date [...] on file Legal Sex Male 3:25 PM KNIFE FINISHER Gender Identity Not on file Sexual Orientation Not on file Obstetrics History Last Filed Vital Signs Vital Sign Reading Time Taken Comments Blood Pressure 99/66 01/15/2025 3:11 PM CDT Pulse 59 01/15/2025 3:11 PM CDT Temperature 36.6 C (97.8 F) 01/15/2025 3:11 PM CDT Respiratory Rate 16 10/17/2024 11:19 AM KNIFE FINISHER Oxygen Saturation 99% 10/17/2024 11:19 AM KNIFE FINISHER Inhaled Oxygen Concentration - - Weight 81.6 [...] 11/12/2023, 10/11/2023 Medical Devices Implanted Type Area Primer Inserting Machine Operator Device Identifier Shelf Expiration Date Model / Serial / Lot [employer] 201.050 Nif - [id number] Implanted:Qty: 1 on 09/22/2018 by George Sepulveda MD at [facility] al: Knee [employer] 04/09/2020 201.050 / / [id number] Subchondroplasty Knee Kit Implanted:Qty: 1 on 09/22/2018 by George Sepulveda MD at [facility] al: Knee [employer] 11/10/2020 402.203(201.0 50) / [id number] / [id number] Description:KIT CONTAINS IMP LANT: ACCUFILL, 5ML, REF# 201.050, LOT # [id number], EX: 11-10-2020 System Accumix Bone Cement - [id number] Implanted:Qty: 1 on 09/22/2018 by George Sepulveda MD at [facility] [employer] 03/28/2021 311.100 / / [id number] [employer] [id number] Palacos R+G High Viscosity Cement Bone Gentamicin Arthroplasty - [id number] Implanted:Qty: 1 on 11/24/2021 by George Sepulveda MD at [facility] Right: Knee [employer] 05/10/2024 [id number] / / [id number] [employer] [id number] Persona Cruciate Retain Knee Right 11 Narrow Component Femoral - [id number] Implanted:Qty: 1 on 11/24/2021 by George Sepulveda MD at [facility] Right: Knee [employer] 07/13/2030 [id number] / / [id number] [employer] [id number] Persona 35mm Knee Component Patellar All Poly Latex Free - [id number] Implanted:Qty: 1 on 11/24/2021 by George Sepulveda MD at [facility] Right: Knee [employer] 03/25/2029 [id number] / / [id number] [employer] [id number] Persona 14mm 30+ Mm Knee Tibia Taper Extension Stem - [id number] Implanted:Qty: 1 on 11/24/2021 by George Sepulveda MD at [facility] Right: Knee [employer] 07/27/2031 [id number] / / [id number] [employer] [id number] Persona Natural Tibia Stem Knee Right 5d G Baseplate Tibial - [id number] Implanted:Qty: 1 on 11/24/2021 by George Sepulveda MD at [facility] Right: Knee [employer] 05/13/2031 [id number] / / [id number] [employer] [id number] Persona 10mm Knee Insert Articular Vivacit-E Sterile - [id number] Implanted:Qty: 1 on 11/24/2021 by George Sepulveda MD at [facility] Right: Knee [employer] 05/06/2026 [id number] / / [id number] Procedures Procedure Name Priority Date/Time Associated Diagnosis Comments CT CHEST ABDOMEN PELVIS W CONTRAST ED Urgent/IP Urgent 10/11/2023 10:12 AM KNIFE FINISHER from Last 3 Months or Most Recently Relevant to Health Maintenance Results * CT Chest Abdomen Pelvis W Contrast (10/11/2023 10:12 AM KNIFE FINISHER) Anatomical Region Laterality Modality Body N/A Computed Tomogra phy 10/11/2023 11:0 3 AM KNIFE FINISHER Impressions 10/11/2023 11:03 AM KNIFE FINISHER A 12 x 12 mm pulmonary nodule in the lateral aspect of the right costophrenic sulcus, new since 2019, is suspicious for primary lung malignancy. Electronically signed by: Jayshree Giles MD, Ph.D Narrative 10/11/2023 11:03 AM KNIFE FINISHER EXAMINATION: Computed tomography of chest/abdomen/pelvis with intravenous [...] by: Jayshree Giles MD, Ph.D Taylor Bland SUPERVISOR DENTURE DEPARTMENT IMG CT PROCEDURES Final Result from Last 3 Months or Most Recently Relevant to Health [place] [address] [employer] CHOICE MEDICARE PPO [facility] [place] [place] [address] [employer] OOS MEDICARE [employer] CHOICE MEDICARE PPO [address] [place] [address] Advance Directives For more information, please contact: [phone] Documents on File Type Date Recorded Patient Tuft Machine Operator Expl anation ADVANCE DIRECTIVE 01/10/2024 3:33 PM LIVING WILL ADVANCE DIRECTIVE 01/10/2024 3:33 PM POWER OF DRYER FE[employer]ER[employer] * Full Code (Latest Code Status on [...] 5:17 PM 12/30/2019 5:42 PM Care Teams Senior Staff Specialized Employment Relationship Specialty Start Date End Date Wolfgang Serrano MD [address] [place] [address] PCP - General Family Medicine 08/03/24 Wolfgang Serrano MD [address] [place] [address] Family Medicine 08/03/24 Unknown, Notinfile 03/12/22 [place] [address] [facility] [address] [place] [address] 03/12/22 Chuy Enriquez MD [address] [facility] [address] [place], [place] [id number] Consulting Physician Pulmonary Disease 10/13/23 Luis Felipe Cedillo MD [address] [facility] [address] [place], [place] [id number] Consulting Physician Gastroenterology 10/13/23 Marlene Thornton MD [address] [facility] [address] [place], [place] [id number] Surgeon Vascular Surgery 11/10/23
--- OUTSIDE RECORDS SUMMARY | 2025-05-31 10:07 | XMS_ITS | Clinical Summary ---
Author Organization [facility] Address [address] [facility] [place] [address] Care Team Providers Care Sport Internship Name Role Phone Santino Paris MD Primary Care Provider [phone] Source Comments [facility],non-owned Affiliates and Associated Physician Practices is amultiple site organization consisting of ambulatory clinics and hospital sitesin [place], [place], [place] and [place]. This disclosure is being madepursuant to the Care Everywhere program and may not contain all informatio navailable regarding this patient. Last updated 18.[facility] Allergies No known active allergies Medications * [...] on file Legal Sex Male 5:54 AM DISPATCHER CHIEF OIL Gender Identity Not on file Sexual Orientation [...] this topic Medical Devices Implanted Type Area Director Adult Device Identifier Shelf Expiration Date Model / Serial / Lot Lens Iol +21 Nate Mod C Bcnvx Tecnis - [id number] Implanted:Qty: 1 on 06/07/2018 by Tyrel Ash MD at [facility] [employer] 05/02/2021 [id number] / [id number] / Lens Iol +21.5 Nate Hpt C Bcnvx [facility] - [id number] Implanted:Qty: 1 on 06/22/2018 by Tyrel Ash MD at [facility] [employer] 04/30/2021 [id number] / [id number] / Insurance MEDICARE MEDICARE Advance Directives * [...] 8:45 AM 06/07/2018 11:08 AM Care Teams Sport Internship Relationship Specialty [place] [address] [address] [facility] [address] [place] [address] [facility] - General 05/12/18
--- OUTSIDE RECORDS SUMMARY | 2025-05-31 10:07 | XMS_ITS | Encounter Summary ---
Author Organization [facility] Address [address] [place] [address] Phone Care Team Providers Care Filler Sifter Machine Name Role Phone Santino Funk MD Primary Care Provider + Unknown, Notinfile Primary Care Provider Unavail able No, Physician Primary Care Provider Santino Funk MD Primary Care Provider + Wolfgang Serrano MD Primary Care Provider [phone] Wolfgang Serrano MD Primary Care Provider Wolfgang Serrano MD Unavailable [phone] Unknown, Notinfile Unavailable Unavailable Santino Funk MD Unavailable [phone] Chuy Enriquez MD Unavailable [phone] Luis Felipe Cedillo MD Unavailable [phone] Marlene Thornton MD Unavailable [phone] Encounter Details Date Type Department Care Team (Late st Contact Info) Description 02/15/2018 Orders Only [facility] ProviderGarett MD [address] [place] [address] Social History Tobacco Use Types Packs/Day Years Used Date Smoking Tobacco: Former Alcohol Use Standard Drinks/Week Comments Yes 0 (1 standard drink = 0.6 oz pur e alcohol) Sex and Gender Information Value Date Recorded Sex Assigned at Not on file Legal Sex Male 3:25 PM FOOD SAFETY DIRECTOR Gender Identity Not on file [...] COVID: Suspected 12/17/2021 12/17/2021 12/17/2021 10:19 PM FOOD SAFETY DIRECTOR documented as of this encounter Care Teams Filler Sifter Machine Relationship Specialty [place] [address] [address] [facility] [address] [place] [address] PCP - General 11/12/16 03/11/22 Unknown, Notinfile PCP - General 03/12/22 05/13/22 No, Physician PCP - General 05/14/22 09/29/22 [place] [address] [address] [place] [address] PCP - General Internal Medicine 09/30/22 05/04/23 Wolfgang Serrano MD PCP - General Family Medicine 05/05/23 08/02/24 Wolfgang Serrano MD [address] [address] PCP - General Family Medicine 08/03/24 Wolfgang Serrano MD Family Medicine 08/03/24 Unknown, Notinfile 03/12/22 [place] [address] [address] [place] [address] 03/12/22 Chuy Enriquez MD [address] [facility] [address] [place] [address] Consulting Physician Pulmonary Disease 10/13/23 Luis Felipe Cedillo MD [address] [place] [address] Consulting Physician Gastroenterology 10/13/23 Marlene Thornton MD [address] [facility] [address] [place] [address] Surgeon Vascular Surgery 11/10/23 documented as of this encounter
== END 2025-05-31 09:37 | disposition home or self-care (01) ==
PROVIDERS: PCP Family Medicine; Referring Provider Internal Medicine Cardiovascular Disease; Visit Provider Psychiatry & Neurology Neurology
DX: I63.9 Cerebral infarction, unspecified (principal); F03.90 Unspecified dementia, unspecified severity, without behavioral disturbance, psychotic disturbance, mood disturbance, and anxiety; Z87.828 Personal history of other (healed) physical injury and trauma; I08.3 Combined rheumatic disorders of mitral, aortic and tricuspid valves
CPT/HCPCS: 70551; 93306; 93880; C8929

== ENCOUNTER 2025-06-05 16:05 | Outpatient (CLI) | payer MEDICARE, SELFPAY ==
--- OUTSIDE RECORDS SUMMARY | 2020-09-30 04:29 | XMS_ITS | Continuity of Care Document ---
Author Organization [facility] Address [address] [place] [address] Phone Care Team Providers Care Center Line Cutter Operator Name Role Phone Caio ADKINS, Jhonny Unavailable Unavailable Landon RN, Nguyen Unavailable Unavailable Procedures Procedure Date Voided Encounter Coronavirus AG [place] (Rapid Test) 20 Voided Encounter Advance Directives Directive Yes / No Effective Date File Name No Information Encounters Encounter Description Practice Location Reason(s) For Visit Diagnoses Date Provider Providers Copied on Encounter [facility] , [address], [place], [place], [id number], tel:[phone] [facility] No Information 0 Caio Barry. [address] [place] [address], [id number], . tel:[phone] Consulting Provider: Nguyen Navarrete, [address], [place], [address]. tel:[phone] [facility] , [address], [place], [place], [id number], tel:[phone] [facility] No Information 0 No Information [facility] , [address], [place], [place], [id number], tel:[phone] [facility] Contact w and exposure to oth viral communicable diseases 0 Caio Barry. [address], [place], [place], [id number], . tel:[phone] [employer] , [address], [place], [place], [address], tel:[phone] [facility] No Information 0 Mathew Wilkinson. [address], [place], [place], [id number], [place]. tel:[phone] Family History Family Member Type Diagnosis Age At Onset No Information Payers Payer name Insurance type Covered republican ID Authoriza tion(s) No Information Social History Type Description Quantity Date Captured Comments Sex Male Smoking Status No Information Chief Complaint And Reason For Visit No Information Reason For Referral Reason For Referral No Information History Of Present Illness Encounter Date Complaint History Of Prese nt Illness No Information Functional Status Date Functional Assessmen t No Information Instructions Date Instruction Additional Infor mation No Information Assessments Type Assessment Date No Information Patient Care Teams Name Effective Dates (start - stop) Status Members No Information
--- NOTE | 2025-06-05 | ECG_ITS ---
Test Date: 2025-06-05 16:52:45 Measurements Intervals Advance Rate: 69 P: 66 SD: 161 QRS: -36 QRSD: 83 T: 100 QT: 405 QTc: 435 Interpretive Statements SINUS RHYTHM WITH FREQUENT VENTRICULAR PREMATURE COMPLEXES IN A BIGEMINAL PATTERN LEFT AXIS DEVIATION MINIMAL Q WAVES- HIGH LATERAL LEADS NONSPECIFIC ST-T WAVE ABNORMALITY- HIGH LATERAL LEADS BASELINE ARTIFACT- I, II, III, AVR, AVL, AVF ABNORMAL ECG Compared to ECG 05/15/2025 21:02:03 VENTRICULAR BIGEMINY NOW PRESENT Electronically Signed On 06-05-2025 19:35:35 CDT by Finn Caban D.O.
--- NOTE | ~2025-06-05 | XR_ITS ---
XR chest 2V 06/05/2025 17:14 Indication: Shortness of breath. History of MD. Procedure: 2 view chest Comparison: Comparison to multiple prior studies sequentially, with oldest reviewed study dated 07/24/2023. Findings: No focal air space disease, pulmonary edema. Small left pleural effusion versus pleural thickening. There are surgical changes in the lower chest. Heart size normal. There is a hiatal hernia. Impression: 1: Small left pleural effusion versus pleural thickening. Reviewed, dictated and finalized at location O. Impression: 1: Small left pleural effusion versus pleural thickening.
--- OUTSIDE RECORDS SUMMARY | 2025-06-05 16:23 | XMS_ITS | Clinical Summary ---
Author Organization [facility] Address [address] [facility] [place] [address] Care Team Providers Care Music Therapy Teacher Name Role Phone Santino Paris MD Primary Care Provider [phone] Source Comments [facility],non-owned Affiliates and Associated Physician Practices is amultiple site organization consisting of ambulatory clinics and hospital sitesin [place], [place], [place] and [place]. This disclosure is being madepursuant to the Care Everywhere program and may not contain all informatio navailable regarding this patient. Last updated 18.[facility] Allergies No known active allergies Medications * [...] on file Legal Sex Male 5:54 AM MANAGEMENT ENGINEER Gender Identity Not on file Sexual [...] this topic Medical Devices Implanted Type Area Business Support Coordinator Device Identifier Shelf Expiration Date Model / Serial / Lot Lens Iol +21 Nate Mod C Bcnvx [employer] - [id number] Implanted:Qty: 1 on 06/07/2018 by Tyrel Ash MD at [facility] [employer] 05/02/2021 [id number] / [id number] / Lens Iol +21.5 Nate Hpt C Bcnvx [facility] - [id number] Implanted:Qty: 1 on 06/22/2018 by Tyrel Ash MD at [facility] [employer] 04/30/2021 [id number] / [id number] / Insurance MEDICARE * Guarantor: Abrahan Gtz Jr Account Type Relation to Patient Date of Phone Billing Address Personal/Family Self [address] [place] [address] MEDICARE Advance Directives * Full Code (Latest [...] 8:45 AM 06/07/2018 11:08 AM Care Teams Music Therapy Teacher Relationship Specialty [place] [address] [address] [facility] [address] [place] [address] [facility] - General 05/12/18
--- OUTSIDE RECORDS SUMMARY | 2025-06-05 16:25 | XMS_ITS | Clinical Summary ---
Author Organization [facility] Address [address] [place] [address] Care Team Providers Care Fur Tanner Name Role Phone Wolfgang Serrano MD Primary Care Provider Wolfgang Serrano MD Unavailable Unknown, Notinfile Unavailable Unavailable Santino Funk MD Unavailable [phone] Chuy Enriquez MD Unavailable [phone] Luis Felipe Cedillo MD Unavailable [phone] Marlene Thornton MD Unavailable [phone] Allergies No known active allergies Medications cholecalciferol [...] 06/22/2024 Assessment & Plan (10/05/2024 9:45 AM SYSTEM CONTROLLER): The patient has advanced arthritis of the [...] 2025 Assessment & Plan (11/18/2023 2:34 PM SYSTEM CONTROLLER): RLL nodule in a patient without clear [...] maintenance/vaccinations Assessment & Plan (11/18/2023 2:34 PM SYSTEM CONTROLLER): Related to hiatal hernia, reflux Sx are [...] (12/05/2019): Added automatically from request for surgery [id number] Subchondral insufficiency fracture of condyle of left [...] materials from doctor or pharmacy Sometimes 03/08/2024 [facility] Utilities Answer Date Recorded In the past 12 months has th e [employer], gas, oil, or water company threatened to [...] any clubs o r organizations such as synagogue groups, unions, fraternal or athletic groups, or [...] Recorded Patient Health Questionnaire-2 Score 0 01/06/2024 [facility] - [...] in a snf (including now)? No 12/16/2023 PHQ-9 Answer Date [...] on file Legal Sex Male 3:25 PM SYSTEM CONTROLLER Gender Identity Not on file Sexual Orientation Not on file Obstetrics History Last Filed Vital Signs Vital Sign Reading Time Taken Comments Blood Pressure 99/66 01/15/2025 3:11 PM CDT Pulse 59 01/15/2025 3:11 PM CDT Temperature 36.6 C (97.8 F) 01/15/2025 3:11 PM CDT Respiratory Rate 16 10/17/2024 11:19 AM SYSTEM CONTROLLER Oxygen Saturation 99% 10/17/2024 11:19 AM SYSTEM CONTROLLER Inhaled Oxygen Concentration - - Weight 81.6 [...] 11/12/2023, 10/11/2023 Medical Devices Implanted Type Area Epic Application Coordinator Device Identifier Shelf Expiration Date Model / Serial / Lot [employer] 201.050 Nif - [id number] Implanted:Qty: 1 on 09/22/2018 by George Sepulveda MD at [facility] al: Knee [employer] 04/09/2020 201.050 / / [id number] Subchondroplasty Knee Kit Implanted:Qty: 1 on 09/22/2018 by George Sepulveda MD at [facility] al: Knee [employer] 11/10/2020 402.203(201.0 50) / [id number] / [id number] Description:KIT CONTAINS IMP LANT: ACCUFILL, 5ML, REF# 201.050, LOT # [id number], EX: 11-10-2020 System Accumix Bone Cement - [id number] Implanted:Qty: 1 on 09/22/2018 by George Sepulveda MD at [facility] [employer] 03/28/2021 311.100 / / [id number] [employer] [id number] Palacos R+G High Viscosity Cement Bone Gentamicin Arthroplasty - [id number] Implanted:Qty: 1 on 11/24/2021 by George Sepulveda MD at [facility] Right: Knee [employer] 05/10/2024 [id number] / / [id number] [employer] [id number] Persona Cruciate Retain Knee Right 11 Narrow Component Femoral - [id number] Implanted:Qty: 1 on 11/24/2021 by George Sepulveda MD at [facility] Right: Knee [employer] 07/13/2030 [id number] / / [id number] [employer] [id number] Persona 35mm Knee Component Patellar All Poly Latex Free - [id number] Implanted:Qty: 1 on 11/24/2021 by George Sepulveda MD at [facility] Right: Knee [employer] 03/25/2029 [id number] / / [id number] [employer] [id number] Persona 14mm 30+ Mm Knee Tibia Taper Extension Stem - [id number] Implanted:Qty: 1 on 11/24/2021 by George Sepulveda MD at [facility] Right: Knee [employer] 07/27/2031 [id number] / / [id number] [employer] [id number] Persona Natural Tibia Stem Knee Right 5d G Baseplate Tibial - [id number] Implanted:Qty: 1 on 11/24/2021 by George Sepulveda MD at [facility] Right: Knee [employer] 05/13/2031 [id number] / / [id number] [employer] [id number] Persona 10mm Knee Insert Articular Vivacit-E Sterile - [id number] Implanted:Qty: 1 on 11/24/2021 by George Sepulveda MD at [facility] Right: Knee [employer] 05/06/2026 [id number] / / [id number] Procedures Procedure Name Priority Date/Time Associated Diagnosis Comments CT CHEST ABDOMEN PELVIS W CONTRAST ED Urgent/IP Urgent 10/11/2023 10:12 AM SYSTEM CONTROLLER from Last 3 Months or Most Recently Relevant to Health Maintenance Results * CT Chest Abdomen Pelvis W Contrast (10/11/2023 10:12 AM SYSTEM CONTROLLER) Anatomical Region Laterality Modality Body N/A Computed Tomogra phy 10/11/2023 11:0 3 AM SYSTEM CONTROLLER Impressions 10/11/2023 11:03 AM SYSTEM CONTROLLER A 12 x 12 mm pulmonary nodule in the lateral aspect of the right costophrenic sulcus, new since 2019, is suspicious for primary lung malignancy. Electronically signed by: Jayshree Giles MD, Ph.D Narrative 10/11/2023 11:03 AM SYSTEM CONTROLLER EXAMINATION: Computed tomography of chest/abdomen/pelvis with intravenous [...] by: Jayshree Giles MD, Ph.D Taylor Bland INVESTIGATION OFFICER IMG CT PROCEDURES Final Result from Last 3 Months or Most Recently Relevant to Health [place] [address] [employer] CHOICE MEDICARE PPO [facility] [place] [address] [email or web address] OOS MEDICARE [employer] CHOICE MEDICARE PPO [address] [place] [address] Advance Directives For more information, please contact: [phone] Documents on File Type Date Recorded Patient Epic Application Coordinator Expl anation ADVANCE DIRECTIVE 01/10/2024 3:33 PM LIVING WILL ADVANCE DIRECTIVE 01/10/2024 3:33 PM POWER OF LIFE CYCLE ASSESSMENT ANALYST-MEDICAL * Full Code (Latest Code Status on [...] 5:17 PM 12/30/2019 5:42 PM Care Teams Fur Tanner Relationship Specialty Start Date End Date Wolfgang Serrano MD [address] [place] [address] PCP - General Family Medicine 08/03/24 Wolfgang Serrano MD [address] [place] [address] Family Medicine 08/03/24 Unknown, Notinfile 03/12/22 [place] [address] [facility] [address] [place] [address] 03/12/22 Chuy Enriquez MD [address] [facility] [address] [place], [place] [id number] Consulting Physician Pulmonary Disease 10/13/23 Luis Felipe Cedillo MD [address] [facility] [address] [place], [place] [id number] Consulting Physician Gastroenterology 10/13/23 Marlene Thornton MD [address] [facility] [address] [place], [place] [id number] Surgeon Vascular Surgery 11/10/23
--- OUTSIDE RECORDS SUMMARY | 2025-06-05 16:25 | XMS_ITS | Encounter Summary ---
Author Organization [facility] Address [address] [place] [address] Phone Care Team Providers Care Delivery Crew Member Name Role Phone Santino Funk MD Primary Care Provider + Unknown, Notinfile Primary Care Provider Unavail able No, Physician Primary Care Provider Santino Funk MD Primary Care Provider + Wolfgang Serrano MD Primary Care Provider Wolfgang Serrano MD Primary Care Provider Wolfgang Serrano MD Unavailable [phone] Unknown, Notinfile Unavailable Unavailable Santino Funk MD Unavailable [phone] Chuy Enriquez MD Unavailable [phone] Luis Felipe Cedillo MD Unavailable [phone] Marlene Thornton MD Unavailable [phone] Encounter Details Date Type Department Care Team (Late st Contact Info) Description 02/15/2018 Orders Only [facility] ProviderGarett MD [address] [place] [address] Social History Tobacco Use Types Packs/Day Years Used Date Smoking Tobacco: Former Alcohol Use Standard Drinks/Week Comments Yes 0 (1 standard drink = 0.6 oz pur e alcohol) Sex and Gender Information Value Date Recorded Sex Assigned at Not on file Legal Sex Male 3:25 PM CAN SOLDERER Gender Identity Not on file Sexual Orientation [...] COVID: Suspected 12/17/2021 12/17/2021 12/17/2021 10:19 PM CAN SOLDERER documented as of this encounter Care Teams Delivery Crew Member Relationship Specialty [place] [address] [address] [facility] [address] [place] [address] PCP - General 11/12/16 03/11/22 Unknown, Notinfile PCP - General 03/12/22 05/13/22 No, Physician PCP - General 05/14/22 09/29/22 [place] [address] [address] [place] [address] PCP - General Internal Medicine 09/30/22 05/04/23 Wolfgang Serrano MD PCP - General Family Medicine 05/05/23 08/02/24 Wolfgang Serrano MD [address] [address] PCP - General Family Medicine 08/03/24 Wolfgang Serrano MD Family Medicine 08/03/24 Unknown, Notinfile 03/12/22 [place] [address] [address] [place] [address] 03/12/22 Chuy Enriquez MD [address] [facility] [address] [place] [address] Consulting Physician Pulmonary Disease 10/13/23 Luis Felipe Cedillo MD [address] [place] [address] Consulting Physician Gastroenterology 10/13/23 Marlene Thornton MD [address] [facility] [address] [place] [address] Surgeon Vascular Surgery 11/10/23 documented as of this encounter
== END 2025-06-05 16:06 | disposition home or self-care (01) ==
PROVIDERS: PCP Family Medicine; Visit Provider Nurse Practitioner Family
DX: R06.02 Shortness of breath (principal); I49.9 Cardiac arrhythmia, unspecified; R91.8 Other nonspecific abnormal finding of lung field; R94.31 Abnormal electrocardiogram [ECG] [EKG]
CPT/HCPCS: 71046; 93005

== ENCOUNTER 2025-06-08 17:19 | Emergency (ER) | payer MEDICARE, SELFPAY ==
--- NOTE | ~2025-06-08 | CT_ITS ---
EXAMINATION: CTA chest PE protocol, 06/08/2025 22:45 CDT HISTORY: Shortness of breath, elevated dimer COMPARISON: No comparisons available. TECHNIQUE: CTA examination is obtained with contrast CTA examination technique is performed with arterial phase of contrast-enhancement. 3-D reconstruction with thin MIP axial and MPR coronal imaging is provided Isovue 300, 92cc injected IV. One or more of the following dose reduction techniques were used: automated exposure control, adjustment of the mA and/or kV according to patient size, use of iterative reconstruction technique. FINDINGS: No significant coronary calcification is present ([id number]) LUNGS: Contrast bolus is adequate, no pulmonary embolism is identified. No tracheomalacia. No bronchiectasis. Minimal emphysematous changes. Minimal pulmonary fibrotic changes. HEART AND PERICARDIUM: Mild cardiomegaly. No pericardial effusion. AORTA: Normal caliber aorta.. PULMONARY ARTERIES: No pulmonary embolism ADENOPATHY/MEDIASTINUM: None. LIMITED VIEWS OF THE ABDOMEN: Simple appearing left renal cyst 3 x 3 cm. Simple appearing right lobe liver cyst 2 x 2 centimeters. Small hiatal hernia. OSSEOUS STRUCTURES: No sclerotic or lytic lesions. There are enlarged left sided rib fractures. OVERLYING SOFT TISSUES: Unremarkable. THYROID: Postthyroidectomy.. IMPRESSION: Negative for pulmonary embolism. No acute process Reviewed, dictated and finalized at location A.
--- NOTE | ~2025-06-08 | XR_ITS ---
EXAMINATION: XR chest 1V portable DATE: 06/08/2025 18:50 INDICATION: Shortness of breath TECHNIQUE: frontal view of the chest was obtained. COMPARISON: Chest radiograph dated 06/05/2025, chest CT dated 10/10/[address] abdomen and pelvis dated 07/31/2024 FINDINGS: No focal airspace opacities, pulmonary edema, pleural effusion or pneumothorax. Heart size is normal. Coronary artery stenting. There are some surgical clips at the medial left lower lung zone along the lateral margin of the gas-filled patulous distal esophagus with similar configuration as seen on the prior CT imaging. Multiple additional surgical clips at the base of the neck consistent with prior thyroidectomy. IMPRESSION: 1. No acute cardiopulmonary disease. Reviewed, dictated and finalized at location A.
[2025-06-08 17:18] VITALS: BP 130/71; PULSE 72; RESP 11; TEMP 36.4; O2SAT 99
[2025-06-08 17:30] VITALS: BP 141/52; PULSE 75; RESP 21; O2SAT 100
[2025-06-08 18:00] VITALS: BP 112/67; PULSE 72; RESP 19; O2SAT 100
[2025-06-08 18:15] VITALS: BP 112/57; PULSE 73; RESP 19; O2SAT 100
--- NOTE | 2025-06-08 18:23 | ECG_ITS ---
Test Date: 2025-06-08 18:30:09 Measurements Intervals [place] Rate: 70 P: 60 ME: 162 QRS: -25 QRSD: 94 T: 98 QT: 418 QTc: 451 Interpretive Statements SINUS RHYTHM WITH VENTRICULAR COUPLETS AND VENTRICULAR PREMATURE COMPLEXES EARLY PRECORDIAL R/S TRANSITION MINIMAL Q WAVES- HIGH LATERAL LEADS BORDERLINE ST-T WAVE ABNORMALITY- HIGH LATERAL LEADS ABNORMAL ECG Compared to ECG 06/05/2025 16:52:45 NO SIGNIFICANT CHANGE Electronically Signed On 06-08-2025 19:39:04 CDT by Finn Caban D.O.
[2025-06-08 18:40] LABS: Hematocrit 39.3 % (42.0-52.0); Hemoglobin 12.8 g/dL (14.0-18.0); Immature Granulocyte Percent A 0.1 % (0-0.5); Lymphocytes Absolute Auto 3.43 K/mm3 (0.9-3.2); Mean Corpuscular HGB Conc 32.6 g/dl (32-36); Mean Corpuscular Hemoglobin 33.0 pg (26-34); Mean Corpuscular Volume 101.3 fl (80-100); Nucleated Red Blood Cells Absolute Auto 0.000 K/mm3 (0.0-0.012); Nucleated Red Blood Cells Perc 0.0 % (0.0-0.2); Platelet Count Result 178 k/mm3 (150-375); Red Blood Count 3.88 M/mm3 (4.6-6.20); White Blood Count 7.7 K/mm3 (4.5-10.0)
[2025-06-08 18:50] LABS: Alanine Aminotransferase 12 U/L (6-50); Albumin Level 3.6 g/dL (3.5-5.1); Alkaline Phosphatase 92 U/L (38-126); Anion Gap 6 mmol/L (4-12); Aspartate Amino Transferase 21 U/L (17-59); Bilirubin,Total 0.6 mg/dL (0.2-1.3); Blood Urea Nitrogen 32 mg/dL (9-20); Calcium 8.9 mg/dL (8.4-10.2); Carbon Dioxide 25 mmol/L (22-30); Chloride 106 mmol/L (98-107); Estimated Glomerular Filt Rate 42; Glucose 105 mg/dL (65-110); Potassium 4.0 mmol/L (3.4-5.0); Sodium 137 mmol/L (137-145); Total Protein 6.9 g/dL (6.3-8.2)
--- NOTE | 2025-06-08 22:15 | ECG_ITS ---
Test Date: 2025-06-08 22:25:34 Measurements Intervals [place] Rate: 63 P: 45 [place]: 170 QRS: -25 QRSD: 83 T: 86 QT: 413 QTc: 425 Interpretive Statements SINUS RHYTHM WITH FREQUENT VENTRICULAR PREMATURE COMPLEXES EARLY PRECORDIAL R/S TRANSITION MINIMAL Q WAVES- HIGH LATERAL LEADS BORDERLINE ST-T WAVE ABNORMALITY- HIGH LATERAL LEADS BASELINE ARTIFACT- I, II, AVR, AVL, AVF, V1-V6 ABNORMAL ECG Compared to ECG 06/08/2025 18:30:09 NO SIGNIFICANT CHANGE Electronically Signed On 06-09-2025 08:11:12 CDT by Finn Caban D.O.
[2025-06-08 22:28] LABS: NT Pro B Type Natriuretic Pept 1350 pg/mL (19.9-100); Troponin I < 0.012 ng/mL (0.000-0.034)
[2025-06-08 22:56] LABS: Troponin I 0.015 ng/mL (0.000-0.034)
--- NOTE | 2025-06-09 00:06 | ED.GENADULT ---
HPI - General Adult General Chief complaint: Shortness of Breath/Dyspnea Stated complaint: dyspnea Time Seen by Provider: 06/08/25 21:08 History of Present Illness HPI narrative: This is an 79-year-old male with a history of coronary artery disease on Brilinta presenting for shortness of breath. He has been short of breath for approximately 6 months. He had an outpatient chest x-ray and his primary care physician was concerned that it red pneumonia so he was sent to the ED for evaluation. He does not have fevers cough chest pain body aches nausea vomiting diarrhea abdominal pain or urinary symptoms. He does not have any history of CHF or COPD. He does not have lower extremity edema. Related Data Home Medications ?Medication ?Instructions ?Recorded ?Confirmed ?Last Taken ?Type furosemide 20 mg tablet (Lasix) 20 mg PO DAILY 08/13/23 04/24/25 02/01/24 History gabapentin 100 mg capsule 600 mg PO TID 08/13/23 04/24/25 02/01/24 History tizanidine 2 mg tablet 2 mg PO Q8H PRN Muscle Pain 08/13/23 04/24/25 02/02/24 08:00 History melatonin 10 mg tablet 10 mg PO HS PRN Sleep 10/10/23 04/24/25 02/01/24 History cholecalciferol (vitamin D3) 50 50 mcg PO DAILY 11/09/23 04/24/25 02/01/24 History mcg (2,000 unit) capsule aspirin 81 mg chewable tablet 81 mg PO DAILY 01/26/24 04/24/25 02/01/24 History cetirizine 10 mg tablet 10 mg PO DAILY 01/26/24 04/24/25 02/01/24 History rosuvastatin 40 mg tablet 40 mg PO DAILY 01/26/24 04/24/25 02/01/24 History ferrous sulfate 325 mg (65 mg 325 mg PO BID 01/06/25 04/24/25 Unknown History iron) tablet (FeroSul) mirabegron 25 mg tablet,extended 25 mg PO DAILY 01/06/25 04/24/25 Unknown History release 24 hr (Myrbetriq) tamsulosin 0.4 mg capsule 0.4 mg PO HS 01/06/25 04/24/25 Unknown History paroxetine HCl 20 mg tablet 20 mg PO QAM 02/16/25 04/24/2525 History Allergies Allergy/AdvReac Type Severity Reaction Status Date / Time No Known Allergies Allergy Verified 04/04/25 09:54 [facility] Past Medical History Medical History History of myocardial infarction Snoring Excessive daytime sleepiness Stroke with left hemiparesis Leg wound, left Overactive bladder Aneurysm of infrarenal abdominal aorta Dyslipidemia 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 Seizure x2 in 1997 Benign prostatic hyperplasia Esophageal stricture Gastroesophageal reflux Hypothyroidism Esophageal diverticulum, acquired Colon polyp Arthritis Diverticulosis Anemia Diverticulitis Myasthenia gravis patient denies Surgical History Surgical History Hx of heart artery stent History of arthroplasty of right knee History of Noemy fundoplication History of thyroidectomy Status post dilatation of esophageal stricture Family History Family History Mother , age 85 Acute myocardial infarction Hypertension Heart disease Father , age 70 Acute myocardial infarction Chronic obstructive pulmonary disease History of blood clots Hypertension Heart disease Sibling Acute myocardial infarction Hypertension Heart disease Other Heart disease Social History Social History Social History: Surrogate medical decision maker: Alon Gtz, spouse. Code status: Full code. Smoking packs per day: 1 Smoking cigarettes per day: 20.0 Years smoked: 4 Smoking pack-years: 4.00 Smoking status: Never smoker Alcohol intake: current Drinks per week: 1 Substance use: never Substance use type: does not use Do You Feel Safe in your Home?: Yes Lack of Transportation: No Lack of Food: Never True Current Housing: I Have Housing Concerned About Future Housing: No Difficulty Paying Gas/Electric Bills: No Difficulty Paying for Meds: No Currently Unemployed: No Education: Bachelor's Degree Difficulty w/ Childcare or Family Care: No Living arrangements: with family Additional living arrangements comments: Lives in [place] with his spouse. They have 3 children. 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 Spiritual care concerns: No Exam Narrative: APPEARANCE: No apparent distress. Head: atraumatic. EYES: EOMI, NOSE: Atraumatic NECK: Trachea midline CARDIOVASCULAR: RRR clear to auscultation ABDOMINAL: Non-distended soft nontender MUSCULOSKELETAl: No obvious deformities NEURO: Alert. Moving 4/4 extremities SKIN:: Warm, dry. Normal color PSYCHIATRIC: Normal affect Course Vital Signs Vital signs: Vital Signs Temperature 97.6 F 06/08/25 17:18 Pulse Rate 72 06/08/25 17:18 Respiratory Rate 11 L 06/08/25 17:18 Blood Pressure 130/71 06/08/25 17:18 Pulse Oximetry 99 06/08/25 17:18 Oxygen Delivery Room Air 06/08/25 17:18 Temperature 97.6 F 06/08/25 17:18 Pulse Rate 73 06/08/25 18:15 Respiratory Rate 19 06/08/25 18:15 Blood Pressure 112/57 L 06/08/25 18:15 Pulse Oximetry 100 06/08/25 18:15 Oxygen Delivery Room Air 06/08/25 17:18 Medical Decision Making MDM Narrative Medical decision making narrative: -Course: 79-year-old male sent in from his primary care physician for concerns over pneumonia. On evaluation patient has clear lungs stable vitals and is not requiring supplemental oxygen. He does not have any clinical symptoms of pneumonia. Shortness of breath workup performed including D-dimer BNP troponin and chest x-ray. Dimer was elevated and a reflex CTA was ordered. CTA did not reveal any evidence pneumonia pneumothorax pleural effusion or pulmonary embolism. Labs did not reveal cause of his dyspnea. Patient has no objective signs of dyspnea on my exam. He is on Brilinta and a known side effect of Brilinta is shortness of breath. I have encouraged him to follow-up with his book cutter for discussion on Brilinta side effects. He has also been given return precautions and primary care follow-up. -DDX includes but is not limited to: CHF, pneumonia, PE, medication side effect Vital Signs Vital Signs: Vital Signs Temperature 97.6 F 06/08/25 17:18 Pulse Rate 72 06/08/25 17:18 Respiratory Rate 11 L 06/08/25 17:18 Blood Pressure 130/71 06/08/25 17:18 Pulse Oximetry 99 06/08/25 17:18 Oxygen Delivery Room Air 06/08/25 17:18 Temperature 97.6 F 06/08/25 17:18 Pulse Rate 73 06/08/25 18:15 Respiratory Rate 19 06/08/25 18:15 Blood Pressure 112/57 L 06/08/25 18:15 Pulse Oximetry 100 06/08/25 18:15 Oxygen Delivery Room Air 06/08/25 17:18 Lab Data 06/08/25 18:35 06/08/25 18:35 Labs: Lab Results 06/08/25 06/08/25 Range/Units 18:35 22:28 WBC 7.7 (4.5-10.0) K/mm3 RBC 3.88 L (4.6-6.20) M/mm3 Hgb 12.8 L (14.0-18.0) g/dL Hct 39.3 L (42.0-52.0) % MCV 101.3 H (80-100) fl MCH 33.0 (26-34) pg MCHC 32.6 (32-36) g/dl RDW 15.5 H (11.5-14.5) % Plt Count 178 (150-375) k/mm3 MPV 11.2 H (7.4-10.4) fl Immature Gran % (Auto) 0.1 (0-0.5) % Neut % (Auto) 32.3 L (45.5-73.1) % Lymph % (Auto) 44.3 H (18.3-44.2) % [place] % (Auto) 11.8 H (2.6-8.5) % Eos % (Auto) 10.6 H (0-4.4) % Baso % (Auto) 0.9 (0.2-1.2) % Lymph # (Auto) 3.43 H (0.9-3.2) K/mm3 [place] # (Auto) 0.9 H (0.1-0.6) K/mm3 Eos # (Auto) 0.8 H (0-0.3) K/mm3 Baso # (Auto) 0.1 (0.0-0.1) K/mm3 Abs Immat Gran (auto) 0.01 (0.00-0.031) K/mm3 Absolute Neuts (auto) 2.5 (1.3-6.7) K/mm3 Absolute Nucleated RBC 0.000 (0.0-0.012) K/mm3 Nucleated RBC % 0.0 (0.0-0.2) % D-Dimer 1.06 H (<0.48) ug/mL Sodium 137 (137-145) mmol/L Potassium 4.0 (3.4-5.0) mmol/L Chloride 106 (98-107) mmol/L Carbon Dioxide 25 (22-30) mmol/L Anion Gap 6 (4-12) mmol/L BUN 32 H (9-20) mg/dL Creatinine 1.60 H (0.7-1.3) mg/dL Estim Creat Clear Calc Not Reportable Estimated GFR 42 L (59 - ) Glucose 105 (65-110) mg/dL Calcium 8.9 (8.4-10.2) mg/dL Total Bilirubin 0.6 (0.2-1.3) mg/dL AST 21 (17-59) U/L ALT 12 (6-50) U/L Alkaline Phosphatase 92 (38-126) U/L Troponin I < 0.012 0.015 D (0.000-0.034) ng/mL NT-Pro-B Natriuret Pep 1350 H (19.9-100) pg/mL Total Protein 6.9 (6.3-8.2) g/dL Albumin 3.6 (3.5-5.1) g/dL Discharge Plan Discharge Clinical Impression: Dyspnea Patient Disposition: Home Condition: Stable Instructions: Antibiotic Form, Dyspnea (ED) Additional Instructions: you were seen in the emergency department for shortness of breath x6 months. Your workup here including chest x-ray, a CT PE, troponins and EKG did not reveal a clear cause. You are on Brilinta which can cause shortness of breath. Please follow-up with your book cutter for further management. If you develop fevers chest pain shortness of breath or any new symptoms please return to the ED for re-evaluation. Patient Language: Polish Prescriptions: No Action cholecalciferol (vitamin D3) 50 mcg (2,000 unit) capsule 50 mcg PO DAILY cetirizine 10 mg tablet 10 mg PO DAILY aspirin 81 mg Tablet,Chewable 81 mg PO DAILY rosuvastatin 40 mg Tablet 40 mg PO DAILY tamsulosin 0.4 mg capsule 0.4 mg PO HS ferrous sulfate [FeroSul] 325 mg (65 mg iron) tablet 325 mg PO BID mirabegron [Myrbetriq] 25 mg tablet extended release 24 hr 25 mg PO DAILY nitroglycerin [Nitrostat] 0.4 mg Tablet, Sublingual 0.4 mg sublingual Q5MIN PRN (Reason: Chest Pain) Qty: 20 0RF paroxetine HCl 20 mg tablet 20 mg PO QAM levothyroxine 175 mcg capsule 100 mcg PO DAILY Qty: 30 2RF acetaminophen 500 mg capsule 1,000 mg PO Q6H PRN (Reason: pain) Qty: 30 0RF lidocaine 4 % adhesive patch,medicated 1 patch topical DAILY PRN (Reason: pain) Qty: 10 0RF furosemide [Lasix] 20 mg Tablet 20 mg PO DAILY gabapentin 100 mg capsule 600 mg PO TID tizanidine 2 mg Tablet 2 mg PO Q8H PRN (Reason: Muscle Pain) melatonin 10 mg Tablet 10 mg PO HS PRN (Reason: Sleep) pantoprazole 40 mg tablet,delayed release (DR/EC) 40 mg PO BID Qty: 60 5RF Brilinta 90 mg tablet 90 mg PO Q12HR 30 Days Qty: 60 5RF Follow-up/Referrals: Wolfgang Serrano MD [Primary Care Provider, Family Practice] - 3 Days Referral Note: Dyspnea, negative workup. possible brillinta side effect
[2025-06-09 00:48] VITALS: BP 131/68; PULSE 78; RESP 18; TEMP 36.9; O2SAT 99
== END 2025-06-09 00:51 | disposition home or self-care (01) ==
PROVIDERS: Emergency Medicine; Emergency Provider Emergency Medicine; PCP Family Medicine
DX: R06.00 Dyspnea, unspecified (principal); I25.10 Atherosclerotic heart disease of native coronary artery without angina pectoris; I69.354 Hemiplegia and hemiparesis following cerebral infarction affecting left non-dominant side; I25.2 Old myocardial infarction; E89.0 Postprocedural hypothyroidism; E78.5 Hyperlipidemia, unspecified; N40.0 Benign prostatic hyperplasia without lower urinary tract symptoms; K21.9 Gastro-esophageal reflux disease without esophagitis; M19.90 Unspecified osteoarthritis, unspecified site; Z95.5 Presence of coronary angioplasty implant and graft; Z96.651 Presence of right artificial knee joint; Z86.0100 Personal history of colon polyps, unspecified; Z79.02 Long term (current) use of antithrombotics/antiplatelets; Z79.899 Other long term (current) drug therapy; Z79.82 Long term (current) use of aspirin; R94.31 Abnormal electrocardiogram [ECG] [EKG]
CPT/HCPCS: 36415; 71045; 71275; 80053; 83880; 84484; 85025; 85380; 93005; 99284; Q9967

== ENCOUNTER 2025-06-13 14:21 | Emergency (ER) | payer MEDICARE, MEDICAID, SELFPAY ==
[2025-06-13] VITALS (9 sets, daily range): BP systolic 142–166; BP diastolic 67–81; PULSE 59–72; RESP 17–28; O2SAT 99–100
--- NOTE | ~2025-06-13 | XR_ITS ---
XR chest 1V portable 06/13/2025 14:45 Indication: Bradycardia Procedure: AP portable chest Comparison: Comparison to multiple prior studies sequentially, with oldest reviewed study dated 01/06/2025. Findings: Cardiomegaly. There is hiatal hernia. There are surgical changes of the chest. No acute focal pneumonia, edema, significant effusion or pneumothorax. Impression: 1: No acute cardiopulmonary disease. 2: Hiatal hernia. Reviewed, dictated and finalized at location O. Impression: 1: No acute cardiopulmonary disease. 2: Hiatal hernia.
--- NOTE | 2025-06-13 14:28 | ECG_ITS ---
Test Date: 2025-06-13 14:35:17 Measurements Intervals [place] Rate: 66 P: 77 [place]: 179 QRS: -27 QRSD: 90 T: 102 QT: 382 QTc: 401 Interpretive Statements SINUS RHYTHM WITH FREQUENT VENTRICULAR PREMATURE COMPLEXES IN A BIGEMINAL PATTERN BORDERLINE LEFT AXIS DEVIATION [QRS AXIS < -20] NONSPECIFIC T-WAVE ABNORMALITY ABNORMAL ECG No previous ECG available for comparison Electronically Signed On 06-13-2025 15:43:49 CDT by Tyrel Diaz M.D.
--- NOTE | 2025-06-13 14:41 | PC.NURSE ---
This RN and MARAH Valverde felt radial pulse on pt with both RN's only feeling [address] Castro made aware.
[2025-06-13 14:43] LABS: Hematocrit 42.3 % (42.0-52.0); Hemoglobin 13.6 g/dL (14.0-18.0); Immature Granulocyte Percent A 0.1 % (0-0.5); Lymphocytes Absolute Auto 2.60 K/mm3 (0.9-3.2); Mean Corpuscular HGB Conc 32.2 g/dl (32-36); Mean Corpuscular Hemoglobin 32.6 pg (26-34); Mean Corpuscular Volume 101.4 fl (80-100); Nucleated Red Blood Cells Absolute Auto 0.000 K/mm3 (0.0-0.012); Nucleated Red Blood Cells Perc 0.0 % (0.0-0.2); Platelet Count Result 179 k/mm3 (150-375); Red Blood Count 4.17 M/mm3 (4.6-6.20); White Blood Count 6.8 K/mm3 (4.5-10.0)
[2025-06-13 14:53] LABS: Alanine Aminotransferase 11 U/L (6-50); Albumin Level 4.0 g/dL (3.5-5.1); Alkaline Phosphatase 118 U/L (38-126); Anion Gap 6 mmol/L (4-12); Aspartate Amino Transferase 21 U/L (17-59); Bilirubin,Total 0.5 mg/dL (0.2-1.3); Blood Urea Nitrogen 23 mg/dL (9-20); Calcium 9.2 mg/dL (8.4-10.2); Carbon Dioxide 26 mmol/L (22-30); Chloride 105 mmol/L (98-107); Estimated CRCL calculation 39 ml/min; Estimated Glomerular Filt Rate 49; Glucose 100 mg/dL (65-110); Lipase 53 U/L (23-300); Sodium 137 mmol/L (137-145); Total Protein 7.6 g/dL (6.3-8.2)
[2025-06-13 14:57] LABS: INR 1.1; Prothrombin Time 13.7 Seconds (11.1-14.7)
[2025-06-13 14:58] LABS: Partial Thromboplastin Time 35.8 Seconds (22.3-36.8)
[2025-06-13 15:05] LABS: Troponin I < 0.012 ng/mL (0.000-0.034)
--- NOTE | 2025-06-13 15:22 | ED_ITS ---
HPI - General Adult General Chief complaint: Arrhythmia/Palpitations Stated complaint: LOW HEART RATE Time Seen by Provider: 06/13/25 14:34 History of Present Illness HPI narrative: This is an 79-year-old male sent in by his primary care physician for a low heart rate. Patient was seen in our ED several days ago because they were concerned about pneumonia on his x-ray. No concerns for pneumonia at that time. He did have subjective dyspnea with no clear cause. Patient is on Brilinta which has a known side effect of dyspnea. Patient has still not developed any signs of pneumonia and feels well overall. Patient was following up with his primary care physician and when they felt his heart rate was bradycardic in the 30s. They then sent him to the ER to be evaluated. The patient himself says he feels fine overall. He still has his chronic shortness of breath. No fevers chills productive cough lower extremity edema or falls. Exam 2 Narrative: APPEARANCE: No apparent distress. Head: atraumatic. EYES: EOMI, NOSE: Atraumatic NECK: Trachea midline RESPIRATORY: No increased rate of breathing clear to auscultation CARDIOVASCULAR: Bradycardic, no peripheral edema ABDOMINAL: Non-distended MUSCULOSKELETAl: No obvious deformities NEURO: Alert. Moving 4/4 extremities SKIN:: Warm, dry. Normal color PSYCHIATRIC: Normal affect Course Vital Signs Vital signs: Vital Signs Pulse Rate 63 06/13/25 14:29 Respiratory Rate 28 H 06/13/25 14:29 Blood Pressure 163/74 H 06/13/25 14:29 Pulse Oximetry 100 06/13/25 14:29 Oxygen Delivery Room Air 06/13/25 14:29 Pulse Rate 63 06/13/25 14:29 Respiratory Rate 28 H 06/13/25 14:29 Blood Pressure 163/74 H 06/13/25 14:29 Pulse Oximetry 100 06/13/25 14:29 Oxygen Delivery Room Air 06/13/25 14:29 Medical Decision Making MDM Narrative Medical decision making narrative: -Course: 79-year-old male sent in by his primary care office about concerns about bradycardia. Patient EKG shows normal sinus rhythm with PVCs in a bigeminal pattern. Vital signs are stable with a normal blood pressure. Patient is able to ambulate around the ED with his normal gait. Laboratory studies within normal limits. Troponin negative. No intervention is necessary at this time as the patient is feeling well overall with normal vitals. I spoke with the patient's auto painter helper Dr. Caban. He will see the patient in clinic in regards to his dyspnea with Brilinta as well as his abnormal EKG. -DDX includes but is not limited to: High-grade heart block, patient asymptomatic bradycardia medication side effect Vital Signs Vital Signs: Vital Signs Pulse Rate 63 06/13/25 14:29 Respiratory Rate 28 H 06/13/25 14:29 Blood Pressure 163/74 H 06/13/25 14:29 Pulse Oximetry 100 06/13/25 14:29 Oxygen Delivery Room Air 06/13/25 14:29 Pulse Rate 63 06/13/25 14:29 Respiratory Rate 28 H 06/13/25 14:29 Blood Pressure 163/74 H 06/13/25 14:29 Pulse Oximetry 100 06/13/25 14:29 Oxygen Delivery Room Air 06/13/25 14:29 Lab Data 06/13/25 14:35 06/13/25 14:35 Labs: Lab Results 06/13/25 06/13/25 Range/Units 14:35 17:32 WBC 6.8 (4.5-10.0) K/mm3 RBC 4.17 L (4.6-6.20) M/mm3 Hgb 13.6 L (14.0-18.0) g/dL Hct 42.3 (42.0-52.0) % MCV 101.4 H (80-100) fl MCH 32.6 (26-34) pg MCHC 32.2 (32-36) g/dl RDW 15.1 H (11.5-14.5) % Plt Count 179 (150-375) k/mm3 MPV 11.0 H (7.4-10.4) fl Immature Gran % (Auto) 0.1 (0-0.5) % Neut % (Auto) 39.4 L (45.5-73.1) % Lymph % (Auto) 38.5 (18.3-44.2) % [place] % (Auto) 10.1 H (2.6-8.5) % Eos % (Auto) 11.0 H (0-4.4) % Baso % (Auto) 0.9 (0.2-1.2) % Lymph # (Auto) 2.60 (0.9-3.2) K/mm3 [place] # (Auto) 0.7 H (0.1-0.6) K/mm3 Eos # (Auto) 0.7 H (0-0.3) K/mm3 Baso # (Auto) 0.1 (0.0-0.1) K/mm3 Abs Immat Gran (auto) 0.01 (0.00-0.031) K/mm3 Absolute Neuts (auto) 2.7 (1.3-6.7) K/mm3 Absolute Nucleated RBC 0.000 (0.0-0.012) K/mm3 Nucleated RBC % 0.0 (0.0-0.2) % PT 13.7 (11.1-14.7) Seconds INR 1.1 APTT 35.8 (22.3-36.8) Seconds Sodium 137 (137-145) mmol/L Potassium 4.6 (3.4-5.0) mmol/L Chloride 105 (98-107) mmol/L Carbon Dioxide 26 (22-30) mmol/L Anion Gap 6 (4-12) mmol/L BUN 23 H (9-20) mg/dL Creatinine 1.40 H (0.7-1.3) mg/dL Estim Creat Clear Calc 39 ml/min Estimated GFR 49 L (59 - ) Glucose 100 (65-110) mg/dL Calcium 9.2 (8.4-10.2) mg/dL Total Bilirubin 0.5 (0.2-1.3) mg/dL AST 21 (17-59) U/L ALT 11 (6-50) U/L Alkaline Phosphatase 118 (38-126) U/L Troponin I < 0.012 Pending (0.000-0.034) ng/mL Total Protein 7.6 (6.3-8.2) g/dL Albumin 4.0 (3.5-5.1) g/dL Lipase 53 (23-300) U/L Discharge Plan Discharge Clinical Impression: Bigeminal rhythm Patient Disposition: Home Condition: Stable Instructions: Antibiotic Form Additional Instructions: You were seen in the emergency department for an low heart rate. Your EKG shows a bigeminy pattern. There is no intervention needed for this at this moment. Please follow-up with Dr. Vega in his clinic in the next 48 hours. If you develop fevers, worsening shortness of breath, dizziness or lightheadedness or any new symptoms he can return to the ED. Patient Language: Burmese Follow-up/Referrals: Finn Caban DO [Physician, Cardiology] - 2 Days Referral Note: dyspnea, bigeminy Wolfgang Serrano MD [Primary Care Provider, Family Practice]
[2025-06-13 15:32] LABS: Potassium 4.6 mmol/L (3.4-5.0)
--- OUTSIDE RECORDS SUMMARY | 2025-06-13 15:44 | XMS_ITS | Clinical Summary ---
Author Organization [facility] Address [address] [place] [address] Care Team Providers Care Camp Attendant Name Role Phone Wolfgang Serrano MD Primary Care Provider Wolfgang Serrano MD Unavailable [phone] Unknown, Notinfile Unavailable Unavailable Santino Funk MD Unavailable [phone] Chuy Enriquez MD Unavailable Luis Felipe Cedillo MD Unavailable [phone] Marlene Thornton MD Unavailable [phone] Allergies No known active allergies Medications cholecalciferol [...] 06/22/2024 Assessment & Plan (10/05/2024 9:45 AM JUNIOR SYSTEMS ANALYST): The patient has advanced arthritis of [...] 2025 Assessment & Plan (11/18/2023 2:34 PM JUNIOR SYSTEMS ANALYST): RLL nodule in a patient without [...] maintenance/vaccinations Assessment & Plan (11/18/2023 2:34 PM JUNIOR SYSTEMS ANALYST): Related to hiatal hernia, reflux Sx [...] (12/05/2019): Added automatically from request for surgery [id number] Subchondral insufficiency fracture of condyle of left [...] fr acture of condyle of left femur ([facility]) Closed fracture of left tibi al plateau [...] knee as current injury Vertigo Alzheimer's dementia ([facility]) Diverticulitis of colon Incontinence of urine Hypothyroidism Fatigue Vision changes Easy bruisability Frequent urination Back pain Muscle weakness Cramps of lower extremity Clotting disorder Hyperlipidemia Hypertension Enlarged prostate Stroke ([facility]) 12/09/2023 left leg works o k, cannot [...] materials from doctor or pharmacy Sometimes 03/08/2024 [facility] Utilities Answer Date Recorded In the past 12 months has th e [employer], gas, oil, or water company threatened to [...] Recorded Patient Health Questionnaire-2 Score 0 01/06/2024 [facility] [...] on file Legal Sex Male 3:25 PM JUNIOR SYSTEMS ANALYST Gender Identity Not on file Sexual Orientation Not on file Obstetrics History Last Filed Vital Signs Vital Sign Reading Time Taken Comments Blood Pressure 99/66 01/15/2025 3:11 PM CDT Pulse 59 01/15/2025 3:11 PM CDT Temperature 36.6 C (97.8 F) 01/15/2025 3:11 PM CDT Respiratory Rate 16 10/17/2024 11:19 AM JUNIOR SYSTEMS ANALYST Oxygen Saturation 99% 10/17/2024 11:19 AM JUNIOR SYSTEMS ANALYST Inhaled Oxygen Concentration - - Weight 81.6 [...] (2 of 2 - PCV) 07/11/2021 07/11/2020 Depression Screening 12/13/2024 12/14/2023, 12/14/2023, 12/07/2023, Additional history exists Covid-19 Vaccine (3 - 2024-2 6 season) 2025 12/12/2020, 11/14/2020 Influenza Vaccine (#1) 2025 07/11/2020, 2019 Fall Risk Assessment 10/17/2025 10/17/2024, 12/03/2022, 11/05/2022 Abdominal Aortic Aneurysm (A AA) Screen Completed 11/12/2023, 11/12/2023, 10/11/2023 Medical Devices Implanted Type Area Student Records Specialist Device Identifier Shelf Expiration Date Model / Serial / Lot Jim [employer]nee [employer]ations 201.050 Nif - [id number] Implanted:Qty: 1 on 09/22/2018 by George Sepulveda MD at [facility] al: Knee [employer] 04/09/2020 201.050 / / [id number] Subchondroplasty Knee Kit Implanted:Qty: 1 on 09/22/2018 by George Sepulveda MD at [facility] al: Knee [employer] 11/10/2020 402.203(201.0 50) / [id number] / [id number] Description:KIT CONTAINS IMP LANT: ACCUFILL, 5ML, REF# 201.050, LOT # [id number], EX: 11-10-2020 System Accumix Bone Cement - [id number] Implanted:Qty: 1 on 09/22/2018 by George Sepulveda MD at [facility] [employer] 03/28/2021 311.100 / / [id number] [employer] [id number] Palacos R+G High Viscosity Cement Bone Gentamicin Arthroplasty - [id number] Implanted:Qty: 1 on 11/24/2021 by George Sepulveda MD at [facility] Right: Knee [employer] 05/10/2024 [id number] / / [id number] [employer] [id number] Persona Cruciate Retain Knee Right 11 Narrow Component Femoral - [id number] Implanted:Qty: 1 on 11/24/2021 by George Sepulveda MD at [facility] Right: Knee [employer] 07/13/2030 [id number] / / [id number] [employer] [id number] Persona 35mm Knee Component Patellar All Poly Latex Free - [id number] Implanted:Qty: 1 on 11/24/2021 by George Sepulveda MD at [facility] Right: Knee [employer] 03/25/2029 [id number] / / [id number] [employer] [id number] Persona 14mm 30+ Mm Knee Tibia Taper Extension Stem - [id number] Implanted:Qty: 1 on 11/24/2021 by George Sepulveda MD at [facility] Right: Knee [employer] 07/27/2031 [id number] / / [id number] [employer] [id number] Persona Natural Tibia Stem Knee Right 5d G Baseplate Tibial - [id number] Implanted:Qty: 1 on 11/24/2021 by George Sepulveda MD at [facility] Right: Knee [employer] 05/13/2031 [id number] / / [id number] [employer] [id number] Persona 10mm Knee Insert Articular Vivacit-E Sterile - [id number] Implanted:Qty: 1 on 11/24/2021 by George Sepulveda MD at [facility] Right: Knee [employer] 05/06/2026 [id number] / / [id number] Procedures Procedure Name Priority Date/Time Associated Diagnosis Comments CT CHEST ABDOMEN PELVIS W CONTRAST ED Urgent/IP Urgent 10/11/2023 10:12 AM JUNIOR SYSTEMS ANALYST from Last 3 Months or Most Recently Relevant to Health Maintenance Results * CT Chest Abdomen Pelvis W Contrast (10/11/2023 10:12 AM JUNIOR SYSTEMS ANALYST) Anatomical Region Laterality Modality Body N/A Computed Tomogra phy 10/11/2023 11:0 3 AM JUNIOR SYSTEMS ANALYST Impressions 10/11/2023 11:03 AM JUNIOR SYSTEMS ANALYST A 12 x 12 mm pulmonary nodule in the lateral aspect of the right costophrenic sulcus, new since 2019, is suspicious for primary lung malignancy. Electronically signed by: Jayshree Giles MD, Ph.D Narrative 10/11/2023 11:03 AM JUNIOR SYSTEMS ANALYST EXAMINATION: Computed tomography of chest/abdomen/pelvis with [...] by: Jayshree Giles MD, Ph.D Taylor Bland WEB UI SOFTWARE ENGINEER IMG CT PROCEDURES Final Result from Last 3 Months or Most Recently Relevant to [place] [address] [employer] CHOICE MEDICARE PPO [facility] [address] [employer] OOS MEDICARE [employer] CHOICE MEDICARE PPO [address] [place] [address] Advance Directives For more information, please contact: [phone] Documents on File Type Date Recorded Patient Ceo And Co Founder Expl anation ADVANCE DIRECTIVE 01/10/2024 3:33 PM LIVING WILL ADVANCE DIRECTIVE 01/10/2024 3:33 PM POWER OF DIRECTOR UNDERWRITER SALES-MEDICAL * Full Code (Latest Code Status on [...] 5:17 PM 12/30/2019 5:42 PM Care Teams Camp Attendant Relationship Specialty Start Date End Date Wolfgang Serrano MD [address] [place] [address] PCP - General Family Medicine 08/03/24 Wolfgang Serrano MD [address] [place] [address] Family Medicine 08/03/24 Unknown, Notinfile 03/12/22 [place] [address] [facility] [address] [place] [address] 03/12/22 Chuy Enriquez MD [address] [facility] [address] [place], [place] [id number] Consulting Physician Pulmonary Disease 10/13/23 Luis Felipe Cedillo MD [address] [facility] [address] [place], [place] [id number] Consulting Physician Gastroenterology 10/13/23 Marlene Thornton MD [address] [facility] [address] [place], [place] [id number] Surgeon Vascular Surgery 11/10/23
--- OUTSIDE RECORDS SUMMARY | 2025-06-13 15:44 | XMS_ITS | Encounter Summary ---
Author Organization [facility] Address [address] [place] [address] Phone Care Team Providers Care Sheet Metal Contractor Name Role Phone Santino Funk MD Primary Care Provider + Unknown, Notinfile Primary Care Provider Unavail able No, Physician Primary Care Provider [phone] Santino Funk MD Primary Care Provider + Wolfgang Serrano MD Primary Care Provider Wolfgang Serrano MD Primary Care Provider [phone] Wolfgang Serrano MD Unavailable [phone] Unknown, Notinfile Unavailable Unavailable Santino Funk MD Unavailable [phone] Chuy Enriquez MD Unavailable [phone] Luis Felipe Cedillo MD Unavailable [phone] Marlene Thornton MD Unavailable [phone] Encounter Details Date Type Department Care Team (Late st Contact Info) Description 02/15/2018 Orders Only [facility] ProviderGarett MD [address] [place] [address] Social History Tobacco Use Types Packs/Day Years Used Date Smoking Tobacco: Former Alcohol Use Standard Drinks/Week Comments Yes 0 (1 standard drink = 0.6 oz pur e alcohol) Sex and Gender Information Value Date Recorded Sex Assigned at Not on file Legal Sex Male 3:25 PM BUSINESS FUNCTIONAL ANALYST Gender Identity Not on file Sexual [...] COVID: Suspected 12/17/2021 12/17/2021 12/17/2021 10:19 PM BUSINESS FUNCTIONAL ANALYST documented as of this encounter Care Teams Sheet Metal Contractor Relationship Specialty [place] [id number] [address] [facility] [address] [place] [address] PCP - General 11/12/16 03/11/22 Unknown, Notinfile PCP - General 03/12/22 05/13/22 No, Physician PCP - General 05/14/22 09/29/22 [place] [address] [address] [place] [address] PCP - General Internal Medicine 09/30/22 05/04/23 Wolfgang Serrano MD PCP - General Family Medicine 05/05/23 08/02/24 Wolfgang Serrano MD [address] [address] PCP - General Family Medicine 08/03/24 Wolfgang Serrano MD Family Medicine 08/03/24 Unknown, Notinfile 03/12/22 [place] [address] [address] [place] [address] 03/12/22 Chuy Enriquez MD [address] [facility] [address] [place] [address] Consulting Physician Pulmonary Disease 10/13/23 Luis Felipe Cedillo MD [address] [place] [address] Consulting Physician Gastroenterology 10/13/23 Marlene Thornton MD [address] [facility] [address] [place] [address] Surgeon Vascular Surgery 11/10/23 documented as of this encounter
--- OUTSIDE RECORDS SUMMARY | 2025-06-13 16:25 | XMS_ITS | Clinical Summary ---
Author Organization [facility] Address [address] [place] [address] Care Team Providers Care Specimen Transporter Name Role Phone Wolfgang Serrano MD Primary Care Provider Wolfgang Serrano MD Unavailable [phone] Unknown, Notinfile Unavailable Unavailable Santino Funk MD Unavailable [phone] Chuy Enriquez MD Unavailable Luis Felipe Cedillo [...] 06/22/2024 Assessment & Plan (10/05/2024 9:45 AM ROLL CONTOUR GRINDER): The patient has advanced arthritis of the [...] 2025 Assessment & Plan (11/18/2023 2:34 PM ROLL CONTOUR GRINDER): RLL nodule in a patient without clear [...] maintenance/vaccinations Assessment & Plan (11/18/2023 2:34 PM ROLL CONTOUR GRINDER): Related to hiatal hernia, reflux Sx are [...] (12/05/2019): Added automatically from request for surgery [id number] Subchondral insufficiency fracture of condyle of left [...] fr acture of condyle of left femur ([facility]) Closed fracture of left tibi al plateau [...] knee as current injury Vertigo Alzheimer's dementia ([facility]) Diverticulitis of colon Incontinence of urine Hypothyroidism Fatigue Vision changes Easy bruisability Frequent urination Back pain Muscle weakness Cramps of lower extremity Clotting disorder Hyperlipidemia Hypertension Enlarged prostate Stroke ([facility]) 12/09/2023 left leg works o k, cannot [...] materials from doctor or pharmacy Sometimes 03/08/2024 [facility] Utilities Answer Date Recorded In the past 12 months has th e [employer], gas, oil, or water company threatened to [...] 0 01/06/2024 [facility] Occupat [facility] - Occupational Stress [...] on file Legal Sex Male 3:25 PM ROLL CONTOUR GRINDER Gender Identity Not on file Sexual Orientation Not on file Obstetrics History Last Filed Vital Signs Vital Sign Reading Time Taken Comments Blood Pressure 99/66 01/15/2025 3:11 PM CDT Pulse 59 01/15/2025 3:11 PM CDT Temperature 36.6 C (97.8 F) 01/15/2025 3:11 PM CDT Respiratory Rate 16 10/17/2024 11:19 AM ROLL CONTOUR GRINDER Oxygen Saturation 99% 10/17/2024 11:19 AM ROLL CONTOUR GRINDER Inhaled Oxygen Concentration - - Weight 81.6 [...] 11/12/2023, 10/11/2023 Medical Devices Implanted Type Area Manager Winter Device Identifier Shelf Expiration Date Model / Serial / Lot [employer]nee [employer] 201.050 Nif - [id number] Implanted:Qty: 1 on 09/22/2018 by George Sepulveda MD at [facility] al: Knee [employer] 04/09/2020 201.050 / / [id number] Subchondroplasty Knee Kit Implanted:Qty: 1 on 09/22/2018 by George Sepulveda MD at [facility] al: Knee [employer] 11/10/2020 402.203(201.0 50) / [id number] / [id number] Description:KIT CONTAINS IMP LANT: ACCUFILL, 5ML, REF# 201.050, LOT # [id number], EX: 11-10-2020 System Accumix Bone Cement - [id number] Implanted:Qty: 1 on 09/22/2018 by George Sepulveda MD at [facility] [employer] 03/28/2021 311.100 / / [id number] [employer] [id number] Palacos R+G High Viscosity Cement Bone Gentamicin Arthroplasty - [id number] Implanted:Qty: 1 on 11/24/2021 by George Sepulveda MD at [facility] Right: Knee [employer] 05/10/2024 [id number] / / [id number] [employer] [id number] Persona Cruciate Retain Knee Right 11 Narrow Component Femoral - [id number] Implanted:Qty: 1 on 11/24/2021 by George Sepulveda MD at [facility] Right: Knee [employer] 07/13/2030 [id number] / / [id number] [employer] [id number] Persona 35mm Knee Component Patellar All Poly Latex Free - [id number] Implanted:Qty: 1 on 11/24/2021 by George Sepulveda MD at [facility] Right: Knee [employer] 03/25/2029 [id number] / / [id number] [employer] [id number] Persona 14mm 30+ Mm Knee Tibia Taper Extension Stem - [id number] Implanted:Qty: 1 on 11/24/2021 by George Sepulveda MD at [facility] Right: Knee [employer] 07/27/2031 [id number] / / [id number] [employer] [id number] Persona Natural Tibia Stem Knee Right 5d G Baseplate Tibial - [id number] Implanted:Qty: 1 on 11/24/2021 by George Sepulveda MD at [facility] Right: Knee [employer] 05/13/2031 [id number] / / [id number] [employer] [id number] Persona 10mm Knee Insert Articular Vivacit-E Sterile - [id number] Implanted:Qty: 1 on 11/24/2021 by George Sepulveda MD at [facility] Right: Knee [employer] 05/06/2026 [id number] / / [id number] Procedures Procedure Name Priority Date/Time Associated Diagnosis Comments CT CHEST ABDOMEN PELVIS W CONTRAST ED Urgent/IP Urgent 10/11/2023 10:12 AM ROLL CONTOUR GRINDER from Last 3 Months or Most Recently Relevant to Health Maintenance Results * CT Chest Abdomen Pelvis W Contrast (10/11/2023 10:12 AM ROLL CONTOUR GRINDER) Anatomical Region Laterality Modality Body N/A Computed Tomogra phy 10/11/2023 11:0 3 AM ROLL CONTOUR GRINDER Impressions 10/11/2023 11:03 AM ROLL CONTOUR GRINDER A 12 x 12 mm pulmonary nodule in the lateral aspect of the right costophrenic sulcus, new since 2019, is suspicious for primary lung malignancy. Electronically signed by: Jayshree Giles MD, Ph.D Narrative 10/11/2023 11:03 AM ROLL CONTOUR GRINDER EXAMINATION: Computed tomography of chest/abdomen/pelvis with intravenous [...] by: Jayshree Giles MD, Ph.D Taylor Bland ENVIRONMENTAL HEALTH AND SAFETY LEADER IMG CT PROCEDURES Final Result from Last 3 Months or Most Recently Relevant to [place] [address] [employer] CHOICE MEDICARE PPO [facility] [place] [address] [employer] OOS MEDICARE [employer] CHOICE MEDICARE PPO [address] [place] [address] Advance Directives For more information, please contact: [phone] Documents on File Type Date Recorded Patient Newcomer Hostess Expl anation ADVANCE DIRECTIVE 01/10/2024 3:33 PM LIVING WILL ADVANCE DIRECTIVE 01/10/2024 3:33 PM POWER OF SUPERVISOR PUMPING STATION-MEDICAL * Full Code (Latest Code Status on [...] 5:17 PM 12/30/2019 5:42 PM Care Teams Specimen Transporter Relationship Specialty Start Date End Date Wolfgang Serrano MD [address] [place] [address] PCP - General Family Medicine 08/03/24 Wolfgang Serrano MD [address] [place] [address] Family Medicine 08/03/24 Unknown, Notinfile 03/12/22 [place] [address] [facility] [address] [place] [address] 03/12/22 Chuy Enriquez MD [address] [facility] [address] [place], [place] [phone] Consulting Physician Pulmonary Disease 10/13/23 Luis Felipe Cedillo MD [address] [facility] [address] [place], [place] [phone] Consulting Physician Gastroenterology 10/13/23 Marlene Thornton MD [address] [facility] [address] [place], [place] [address] Surgeon Vascular Surgery 11/10/23
--- OUTSIDE RECORDS SUMMARY | 2025-06-13 16:25 | XMS_ITS | Encounter Summary ---
Author Organization [facility] Address [address] [place] [address] Phone Care Team Providers Care General Hardware Salesperson Name Role Phone Santino Funk MD Primary Care Provider + Unknown, Notinfile Primary Care Provider Unavail able No, Physician Primary Care Provider [phone] Santino Funk MD Primary Care Provider + Wolfgang Serrano MD Primary Care Provider Wolfgang Serrano MD Primary Care Provider Wolfgang Serrano MD Unavailable [phone] Unknown, Notinfile Unavailable Unavailable Santino Funk MD Unavailable [phone] Chuy Enriquez MD Unavailable [phone] Luis Felipe Cedillo MD Unavailable [phone] Marlene Thornton MD Unavailable [phone] Encounter Details Date Type Department Care Team (Late st Contact Info) Description 02/15/2018 Orders Only [facility] ProviderGarett MD [address] [place] [address] Social History Tobacco Use Types Packs/Day Years Used Date Smoking Tobacco: Former Alcohol Use Standard Drinks/Week Comments Yes 0 (1 standard drink = 0.6 oz pur e alcohol) Sex and Gender Information Value Date Recorded Sex Assigned at Not on file Legal Sex Male 3:25 PM LINSEED OIL ORDER FILLER Gender Identity Not on file Sexual [...] COVID: Suspected 12/17/2021 12/17/2021 12/17/2021 10:19 PM LINSEED OIL ORDER FILLER documented as of this encounter Care Teams General Hardware Salesperson Relationship Specialty [place] [id number] [address] [facility] [address] [place] [address] PCP - General 11/12/16 03/11/22 Unknown, Notinfile PCP - General 03/12/22 05/13/22 No, Physician PCP - General 05/14/22 09/29/22 [place] [address] [address] [place] [address] PCP - General Internal Medicine 09/30/22 05/04/23 Wolfgang Serrano MD PCP - General Family Medicine 05/05/23 08/02/24 Wolfgang Serrano MD [address] [address] PCP - General Family Medicine 08/03/24 Wolfgang Serrano MD Family Medicine 08/03/24 Unknown, Notinfile 03/12/22 [place] [address] [address] [place] [address] 03/12/22 Chuy Enriquez MD [address] [facility] [address] [place] [address] Consulting Physician Pulmonary Disease 10/13/23 Luis Felipe Cedillo MD [address] [place] [address] Consulting Physician Gastroenterology 10/13/23 Marlene Thornton MD [address] [facility] [address] [place] [address] Surgeon Vascular Surgery 11/10/23 documented as of this encounter
--- NOTE | 2025-06-13 17:29 | ECG_ITS ---
Test Date: 2025-06-13 17:40:10 Measurements Intervals Rowe Rate: 68 P: 57 IL: 169 QRS: -23 QRSD: 94 T: 108 QT: 382 QTc: 409 Interpretive Statements SINUS RHYTHM WITH FREQUENT VENTRICULAR PREMATURE COMPLEXES POSSIBLE LEFT ATRIAL ENLARGEMENT [-0.1mV P-WAVE IN V1/V2] BORDERLINE LEFT AXIS DEVIATION [QRS AXIS < -20] NONSPECIFIC T-WAVE ABNORMALITY Compared to ECG 06/13/2025 14:35:17 T-wave abnormality still present Electronically Signed On 06-14-2025 11:30:00 CDT by Evaristo Matthews M.D.
[2025-06-13 17:58] LABS: Troponin I < 0.012 ng/mL (0.000-0.034)
== END 2025-06-13 17:50 | disposition home or self-care (01) ==
PROVIDERS: Emergency Medicine; Emergency Provider Emergency Medicine; PCP Family Medicine
DX: R00.8 Other abnormalities of heart beat (principal); R06.02 Shortness of breath; R94.31 Abnormal electrocardiogram [ECG] [EKG]; I49.3 Ventricular premature depolarization; Z79.02 Long term (current) use of antithrombotics/antiplatelets
CPT/HCPCS: 36415; 71045; 80053; 83690; 84484; 85025; 85610; 85730; 93005; 99284

== ENCOUNTER 2025-07-11 12:30 | Outpatient (RCR) | payer MEDICARE, SELFPAY ==
--- NOTE | 2025-05-09 12:09 | PCOTNOTE ---
Pt. attended outpatient evaluation for occupational therapy on 02/12/25 for strengthening after prior CVA and deconditioning. Pt. then hospitalized and did not return for occupational therapy treatment. Pt. discharged from services at this time.
--- NOTE | 2025-05-14 11:33 | OTOPEVAL1 ---
Assessment and note entered by Jesse Montoya, CHARLES/Cory, CHT Evaluation Information Assessment Status Evaluation Diagnosis R29.6 Repeated Falls Subjective Information Patient's history includes CVA (11/2023) and NSTEMI (12/2024). After the NSTEMI earlier this year patient received home health PT/OT due to weakness and falls. He presents today to continue therapy in the outpatient setting. He presents today walking with a platform walker. He reports no UE pain and that his home exercises for the arm include passive ROM. He reports that home health OT helped him modify his home to move commonly used items to where he can easily reach them. They are also looking into getting grab bars for the shower. Patient reports experiencing a fall about 2-3 times a month. He states he falls in the bathroom and trips over his walker. Reported Pain Level Pain Score 0: Self Report Assessment OT Clinical Summary Patient referred to outpatient OT with dx of frequent falls. PMH includes CVA and NSTEMI. Patient is needing cardiac rehab, however he needs to get stronger before going to cardiac rehab. He presents with left sided weakness, decreased functional balance, and reduced functional endurance for ADLs. Skilled OT indicated to maximize functional strength and safety with ADLs to facilitate improved functional independence, reduce falls, and reduced burden of care. Plan of Care Interventions Therapeutic Exercise,Manual Therapy,Neuro Re- education,Therapeutic Activities,Hot Pack/Cold Pack OT Services Indicated Yes Treatment Frequency and 2x/week for 10 visits Duration These treatments will address the objective and functional deficits as defined above. The patient will be advanced safely and appropriately in order for the patient to progress towards his/her prior level of function. Additional exercises will be introduced and as well as a comprehensive home exercise program upon discharge, if needed, ?to ensure carryover of functional gains achieved in the clinic. This treatment plan has been reviewed and agreement upon by the patient.
--- NOTE | 2025-05-14 11:33 | OPREHPOC ---
Outpatient Therapy Plan of Care This is a Multidisciplinary Plan of Care that may contain components documented by all disciplines (PT, OT, and ST.) OT Problem 1 OT Problem #1 Knowledge Deficit OT Goal 1 Goal / Goal Update 1. Patient to be independent with instructed materials/HEP. Target Visit 10 OT Problem 2 OT Problem #2 Impaired Strength OT Goal 1 Goal / Goal Update Demonstrate improved functional strength of the (L ) UE for improved functional use for ADLs: 1. gross shoulder strength to 3/5 2. gross elbow strength to 2+/5 3. gross wrist strength to 2+/5 Target Visit 8 OT Problem 3 OT Problem #3 Impaired Safety Awareness OT Goal 1 Goal / Goal Update 1. Patient to safely utilize his walker without cues for safety during therapy sessions. Target Visit 10
--- NOTE | 2025-05-14 12:22 | OPREHPOC ---
Outpatient Therapy Plan of Care This is a Multidisciplinary Plan of Care that may contain components documented by all disciplines (PT, OT, and ST.) OT Problem 1 OT Problem #1 Knowledge Deficit OT Goal 1 Goal / Goal Update 1. Patient to be independent with instructed materials/HEP. Target Visit 10 OT Problem 2 OT Problem #2 Impaired Strength OT Goal 1 Goal / Goal Update Demonstrate improved functional strength of the (L ) UE for improved functional use for ADLs: 1. gross shoulder strength to 3/5 2. gross elbow strength to 2+/5 3. gross wrist strength to 2+/5 Target Visit 8 OT Problem 3 OT Problem #3 Impaired Safety Awareness OT Goal 1 Goal / Goal Update 1. Patient to safely utilize his walker without cues for safety during therapy sessions. Target Visit [address] Problem #[address] Goal 1 Goal / Goal Update The patient will participate in home programming to improve carry over/generalization of skills to the home environment. Target Visit [address] Problem #[address] Goal 1 Goal / Goal Update Cognition: 1. The patient will recall short paragraph length information 2-3 critical details with 85% minimal cues. 2. The patient will determine the best solution for everyday home/community scenario problems with 85% minimal cues Target Visit [address] Problem #[address] Goal 1 Goal / Goal Update Verbal Expression 1. The patient will complete complex word finding activities with 85% minimal cues ST Problem 4 ST Problem #[address] Goal 1 Goal / Goal Update Intelligibility: 1. The patient will complete oral motor exercises with 85% an minimal cues. 2. The patient will produce sentence/phrase material with 85% intelligibility and minimal cues . 3. The patient will state and apply compensatory techniques for (slow rate, one word at a time and over articulation) minimal cues.
--- NOTE | 2025-05-14 12:22 | STOPEVAL1 ---
Assessment and note entered by Nguyen Luis, DIRECTOR CAMP Evaluation Information Assessment Status Evaluation Assessment Status Evaluation Diagnosis I63.9 ICD-10 Condition Codes (ST) Cognitive Deficits following cerebral infarction I69.31,Aphasia following cerebral infarction: I69. 320,Dysarthria following cerebral infarction: I69. 322 Reported Pain Level Pain Score 0: Self Report Pain Score 0: Self Report Assessment ST Clinical Summary The patient is an 79 year old male referred for a speech-language evaluation. He is post CVA with left side weakness and was recently discharge from home health services to begin outpatient treatment. The patient states he is most concerned with memory, speech production, and word retrieval. The patient was administered the [facility] Adult Cognitive Evaluation. Areas assessed included: Memory, Problem solving, Thought Organization, and Auditory Processing. The patient demonstrated the following deficits. Moderately impaired memory for immediate memory 80 %, Short-term memory 70%, Delayed memory 70%. Problem Solving deficits for Simple problems 70% and Complex problems 70%. Thought Organization, Functional Math, and Auditory Processing required extra time to process and complete but were within normal limits. The patietn was noted to have word searching intermittently when attempting to express ideas and mildly dysarthria speech at sentence/phrase level due to lingual weakness and decreased left labial seal. Recommend outpaitne speech services 2x week x 10 visits to address Cognition, Verbal Expression, and Speech intelligibility. Plan of Care Interventions Treatment of Speech,Treatment of Language, Treatment for Cognitive Function ST Services Indicated Yes These treatments will address the objective and functional deficits as defined above. The patient will be advanced safely and appropriately in order for the patient to progress towards his/her prior level of function. Additional exercises will be introduced and as well as a comprehensive home exercise program upon discharge, if needed, ?to ensure carryover of functional gains achieved in the clinic. This treatment plan has been reviewed and agreement upon by the patient.
--- NOTE | 2025-05-16 13:32 | OPREHPOC ---
Outpatient Therapy Plan of Care This is a Multidisciplinary Plan of Care that may contain components documented by all disciplines (PT, OT, and ST.) PT Problem 1 PT Problem #1 Knowledge Deficit PT Goal 1 Goal / Goal Update *independent with HEP Target Visit 10 PT Problem 2 PT Problem #2 Impaired Strength PT Goal 1 Goal / Goal Update increase strength of legs to improve mobility skills: 1* R LE 4/5 2 L LE 4-/5 3* sit/stand without use of UE x 5 reps from w/c Target Visit 10 PT Problem 3 PT Problem #3 Impaired Functional Mobility PT Goal 1 Goal / Goal Update 1* pt ambulate with cane, 2 minute walking distance of 150' 2* Tinetti balance score of 21/26 3* 5 reps sit/stand from w/c in 20 seconds 4* pt report NO falls Target Visit 10 OT Problem 1 OT Problem #1 Knowledge Deficit OT Goal 1 Goal / Goal Update 1. Patient to be independent with instructed materials/HEP. Target Visit 10 OT Problem 2 OT Problem #2 Impaired Strength OT Goal 1 Goal / Goal Update Demonstrate improved functional strength of the (L ) UE for improved functional use for ADLs: 1. gross shoulder strength to 3/5 2. gross elbow strength to 2+/5 3. gross wrist strength to 2+/5 Target Visit 8 OT Problem 3 OT Problem #3 Impaired Safety Awareness OT Goal 1 Goal / Goal Update 1. Patient to safely utilize his walker without cues for safety during therapy sessions. Target Visit [address] Problem #[address] Goal 1 Goal / Goal Update The patient will participate in home programming to improve carry over/generalization of skills to the home environment. Target Visit [address] Problem #[address] Goal 1 Goal / Goal Update Cognition: 1. The patient will recall short paragraph length information 2-3 critical details with 85% minimal cues. 2. The patient will determine the best solution for everyday home/community scenario problems with 85% minimal cues Target Visit [address] Problem #[address] Goal 1 Goal / Goal Update Verbal Expression 1. The patient will complete complex word finding activities with 85% minimal cues ST Problem 4 ST Problem #[address] Goal 1 Goal / Goal Update Intelligibility: 1. The patietn will complete oral motor exercises with 85% an minimal cues. 2. The patietn will produce sentence/phrase material with 85% intelligibility and minimal cues . 3. The patient will state and apply compensatory techniques for (slow rate, one word at a time and over articualtion) minimal cues.
--- NOTE | 2025-05-16 13:33 | PTOPEVAL1 ---
Assessment and note entered by Breana Edwards, PT Evaluation Information Assessment Status Evaluation ICD-10 Condition Codes (PT) Difficulty Walking R26.2,Abnormalities of gait and mobility R26.9,Weakness R53.1 Onset December 2024 Subjective Information since PA in December 2024, more weakness and problems walking; had PT here in the past; have had 2 falls in the past month; and multiple falls in the past; falls due to weakness and tend to go backwards. have not been doing the exercises at home much any more, due to pain from falls; activity: walking with tall, upright walker without assistance; home with - she does most of home chores; have chair lift to basement; from garage to home have 3 steps and use cane on them; at home: cane, wheelchair, upright tall wheeled walker, wheeled walker; Goal: get legs stronger; Reported Pain Level Pain Score 0: Self Report Additional Pain Score Comments no pain at this time, but have falls, with pain in neck, head, L knee Assessment PT Clinical Summary Abrahan is s/p CVA in Nov 2023 with L side weakness and PA in December 2024. He continues to have falls and weakness of L arm and leg. He is also receiving OT and ST services. Walking with a tall, upright walker or cane for mobility. He is at home with his and she does most of the home tasks. With the evaluation: 5 reps sit/director appointment 25 seconds from w/c; 2 minute walking test distance with cane 75' and maximum walking distance of 160' with cane; Tinetti balance score of 15/28= high risk for falls; weakness of both legs, L weaker than R. Skilled PT services are indicated to increase LE strength, gait and balance skills, with education for HEP and mobility retraining, to decrease risk for future falls. Plan of Care Interventions Gait Training,Neuro Re-education,Patient/Caregiver Education,Therapeutic Activities,Therapeutic Exercise PT Services Indicated Yes Treatment Frequency and 2x/wk for 10 visits Duration These treatments will address the objective and functional deficits as defined above. The patient will be advanced safely and appropriately in order for the patient to progress towards his/her prior level of function. Additional exercises will be introduced and as well as a comprehensive home exercise program upon discharge, if needed, ?to ensure carryover of functional gains achieved in the clinic. This treatment plan has been reviewed and agreement upon by the patient.
--- NOTE | 2025-06-06 07:39 | PCSTNOTE ---
Patient called & cancelled scheduled appointment this date due to sick
--- NOTE | 2025-06-06 16:19 | PCPTNOTE ---
Pt canceled due to illness.
--- NOTE | 2025-06-15 09:22 | PCPTNOTE ---
Pt attended session but due to hospital stays regarding low heart rate, HR was taken with first reading 35 and 2nd manual reading was 38. Pt encouraged to call MD and session was canceled. DIVERSIONAL THERAPIST'S ASSISTANT waited with pt until his ride () showed up and was on the phone with his MD for the next steps.
--- NOTE | 2025-06-18 08:58 | PCSTNOTE ---
Patient called & cancelled scheduled appointment this date due to physician placed n hold
--- NOTE | 2025-06-18 10:55 | PCPTNOTE ---
Pt NS visit today as they are still awaiting to see if the can attend therapy due to low HR readings.
--- NOTE | 2025-06-25 09:27 | OTOPPROG ---
Assessment and note entered by Jesse Montoya, OLGAR/Cory, CHT OT Progress Update 06/25/25 Assessment Status Progress Diagnosis R29.6 Repeated Falls Subjective Information Patient reports feeling like he is making progress with therapy. He reports feeling stronger and more confident with transfers and ADLs. He reports feeling more movement in the hemiparetic arm. He reports no falls in the last month. Assessment OT Clinical Summary Patient referred to outpatient OT with dx of frequent falls. PMH includes CVA and NSTEMI. Patient has been participating in OT for ~1 month and presents today for his progress update. Therapy has been monitoring HR throughout therapy sessions. HR fluctuates from 40s to 130s. BP today 120/60. Patient is needing cardiac rehab, however he needs to get stronger before going to cardiac rehab. Patient demonstrates progress toward all goals. He demonstrates increase strength in the left shoulder, elbow, forearm, and wrist. He demonstrates improved strength for functional use for ADLs such as being able to abduct the arm to don deodorant, improved abilities with UB dressing , and reducing burden of care on his . Continued skilled OT indicated to maximize functional strength and safety with ADLs to facilitate improved functional independence, reduce falls, and reduced burden of care. Plan of Care Interventions Therapeutic Exercise,Manual Therapy,Neuro Re- education,Therapeutic Activities,Hot Pack/Cold Pack OT Services Indicated Yes Treatment Frequency and 2x/week for 10 visits Duration These treatments will address the objective and functional deficits as defined above. The patient will be advanced safely and appropriately in order for the patient to progress towards his/her prior level of function. Additional exercises will be introduced and as well as a comprehensive home exercise program upon discharge, if needed, ?to ensure carryover of functional gains achieved in the clinic. This treatment plan has been reviewed and agreement upon by the patient.
--- NOTE | 2025-06-25 09:27 | OPREHPOC ---
Outpatient Therapy Plan of Care This is a Multidisciplinary Plan of Care that may contain components documented by all disciplines (PT, OT, and ST.) PT Problem 1 PT Problem #1 Knowledge Deficit PT Goal 1 Goal / Goal Update *independent with HEP Target Visit 10 PT Problem 2 PT Problem #2 Impaired Strength PT Goal 1 Goal / Goal Update increase strength of legs to improve mobility skills: 1* R LE 4/5 2 L LE 4-/5 3* sit/stand without use of UE x 5 reps from w/c Target Visit 10 PT Problem 3 PT Problem #3 Impaired Functional Mobility PT Goal 1 Goal / Goal Update 1* pt ambulate with cane, 2 minute walking distance of 150' 2* Tinetti balance score of 21/26 3* 5 reps sit/stand from w/c in 20 seconds 4* pt report NO falls Target Visit 10 OT Problem 1 OT Problem #1 Knowledge Deficit OT Goal 1 Goal / Goal Update 1. Patient to be independent with instructed materials/HEP. ---OT POC UPDATE 06/25/25--- 1. Met, continue as HEP is progressed Target Visit 20 OT Problem 2 OT Problem #2 Impaired Strength OT Goal 1 Goal / Goal Update Demonstrate improved functional strength of the (L ) UE for improved functional use for ADLs: 1. gross shoulder strength to 3/5 2. gross elbow strength to 2+/5 3. gross wrist strength to 2+/5 ---OT POC UPDATE 06/25/25--- 1. progressing, continue 2. met, upgrade to 3+/5 3. progressing, continue Target Visit 20 OT Problem 3 OT Problem #3 Impaired Safety Awareness OT Goal 1 Goal / Goal Update 1. Patient to safely utilize his walker without cues for safety during therapy sessions. ---OT POC UPDATE 06/25/25--- 1. Not assessed this date. Patient presents with his cane, using a w/c for mobility from the [employer]. Target Visit [address] Problem #[address] Goal 1 Goal / Goal Update The patient will participate in home programming to improve carry over/generalization of skills to the home environment. Target Visit [address] Problem #[address] Goal 1 Goal / Goal Update Cognition: 1. The patient will recall short paragraph length information 2-3 critical details with 85% minimal cues. 2. The patient will determine the best solution for everyday home/community scenario problems with 85% minimal cues Target Visit [address] Problem #[address] Goal 1 Goal / Goal Update Verbal Expression 1. The patient will complete complex word finding activities with 85% minimal cues ST Problem 4 ST Problem #[address] Goal 1 Goal / Goal Update Intelligibility: 1. The patietn will complete oral motor exercises with 85% an minimal cues. 2. The patietn will produce sentence/phrase material with 85% intelligibility and minimal cues . 3. The patient will state and apply compensatory techniques for (slow rate, one word at a time and over articualtion) minimal cues.
--- NOTE | 2025-06-27 09:31 | PCSTNOTE ---
Patient called & cancelled scheduled appointment this date due to patient schedule change.
--- NOTE | 2025-07-04 11:26 | STOPREEVAL ---
Assessment and note entered by Nguyen Luis HAND BUTTON SPLITTER Evaluation Information Assessment Status Re-evaluation Reported Pain Level Pain Score 0: Self Report Assessment ST Clinical Summary Initial Evaluation: The patient is an 79 year old male referred for a speech-language evaluation. He is post CVA with left side weakness and was recently discharge from home health services to begin outpatient treatment. The patient states he is most concerned with memory, speech production, and word retrieval. The patient was administered the [facility] Adult Cognitive Evaluation. Areas assessed included: Memory, Problem solving, Thought Organization, and Auditory Processing. The patient demonstrated the following deficits. Moderately impaired memory for immediate memory 80 %, Short-term memory 70%, Delayed memory 70%. Problem Solving deficits for Simple problems 70% and Complex problems 70%. Thought Organization, Functional Math, and Auditory Processing required extra time to process and complete but were within normal limits. The patient was noted to have word searching intermittently when attempting to express ideas and mildly dysarthria speech at sentence/phrase level due to lingual weakness and decreased left labial seal. Recommend outpatient speech services 2x week x 10 visits to address Cognition, Verbal Expression, and Speech intelligibility. Re-Evaluation 07/04/25: The patient was re-administered the [facility] Adult Cognitive Evaluation. Areas assessed included: Memory, Problem solving, Thought Organization, and Auditory Processing. The patient demonstrated the following deficits. Mildly impaired memory for immediate memory (80% Initial evaluation) 90%, Short-term memory (70% Initial Evaluation) 85%, Delayed memory (70% Initial Evaluation) 80%. Problem Solving deficits for Simple problems (70% Initial Evaluation) 100% and Complex problems (70% Initial Evaluation) 85%. Thought Organization, Functional Math, and Auditory Processing required extra time to process and complete but were within normal limits. The patient was noted to have reduced word searching when expressing complex ideas. Dysarthric speech at sentence/phrase level due to lingual weakness and decreased left labial seal was improved to 85% . The patients vocal volume still frequently drops when speaking to a lower volume with reduced audible quality. Recommend outpatient speech services 2x week x 10 visits to address Cognition (Recall for complex information with increased delay time for recall/ and Abstract Reasoning), and Speech intelligibility/Voice for everyday communication. Plan of Care Interventions Treatment of Speech,Treatment for Cognitive Function ST Services Indicated Yes Treatment Frequency and 2x a week x 12 visits. Duration These treatments will address the objective and functional deficits as defined above. The patient will be advanced safely and appropriately in order for the patient to progress towards his/her prior level of function. Additional exercises will be introduced and as well as a comprehensive home exercise program upon discharge, if needed, ?to ensure carryover of functional gains achieved in the clinic. This treatment plan has been reviewed and agreement upon by the patient.
--- NOTE | 2025-07-04 11:26 | OPREHPOC ---
Outpatient Therapy Plan of Care This is a Multidisciplinary Plan of Care that may contain components documented by all disciplines (PT, OT, and ST.) PT Problem 1 PT Problem #1 Knowledge Deficit PT Goal 1 Goal / Goal Update *independent with HEP Target Visit 10 PT Problem 2 PT Problem #2 Impaired Strength PT Goal 1 Goal / Goal Update increase strength of legs to improve mobility skills: 1* R LE 4/5 2 L LE 4-/5 3* sit/stand without use of UE x 5 reps from w/c Target Visit 10 PT Problem 3 PT Problem #3 Impaired Functional Mobility PT Goal 1 Goal / Goal Update 1* pt ambulate with cane, 2 minute walking distance of 150' 2* Tinetti balance score of 21/26 3* 5 reps sit/stand from w/c in 20 seconds 4* pt report NO falls Target Visit 10 OT Problem 1 OT Problem #1 Knowledge Deficit OT Goal 1 Goal / Goal Update 1. Patient to be independent with instructed materials/HEP. ---OT POC UPDATE 06/25/25--- 1. Met, continue as HEP is progressed Target Visit 20 OT Problem 2 OT Problem #2 Impaired Strength OT Goal 1 Goal / Goal Update Demonstrate improved functional strength of the (L ) UE for improved functional use for ADLs: 1. gross shoulder strength to 3/5 2. gross elbow strength to 2+/5 3. gross wrist strength to 2+/5 ---OT POC UPDATE 06/25/25--- 1. progressing, continue 2. met, upgrade to 3+/5 3. progressing, continue Target Visit 20 OT Problem 3 OT Problem #3 Impaired Safety Awareness OT Goal 1 Goal / Goal Update 1. Patient to safely utilize his walker without cues for safety during therapy sessions. ---OT POC UPDATE 06/25/25--- 1. Not assessed this date. Patient presents with his cane, using a w/c for mobility from the [employer]. Target Visit [address] Problem #[address] Goal 1 Goal / Goal Update The patient will participate in home programming to improve carry over/generalization of skills to the home environment. Update: 07/04/25: Met: The patient has begun to use compensatory techniques for word finding and memory. Target Visit [address] Goal 2 Goal / Goal Update Updated Knowledge Goal: The patient will continue to carry over strategies for memory, voice, and word-retrieval with a HEP. Target Visit [address] Problem #[address] Goal 1 Goal / Goal Update Cognition: 1. The patient will recall short paragraph length information 2-3 critical details with 85% and minimal cues. 07/04/25 Update: Met: The patient is able to recall simple paragraph length information with 85% and minimal cues. 2. The patient will determine the best solution for everyday home/community scenario problems with 85% and minimal cues 07/04/25 Update: Met: The patient is completing home/community problem solving 90-100% Target Visit [address] Goal 2 Goal / Goal Update Updated Cognition Goals: 1. The patient will recall moderately complex paragraph length information 3-4 details with 85% and minimal cues. 2. The patient will recall 3 details provided auditorily after a 3-5 minute delay with 80% and minimal cues. 3. The patient will complete complex abstract reasoning with 85% and minimal cues. Target Visit [address] Problem #[address] Goal 1 Goal / Goal Update Verbal Expression 1. The patient will complete complex word finding activities with 85% and minimal cues 07/04/25 Update: Met: The patient is completing complex word-retrieval with 85% and minimal cues. Target Visit [address] Problem 4 ST Problem #[address] Goal 1 Goal / Goal Update Intelligibility: 1. The patient will complete oral motor exercises with 85% and minimal cues. 07/04/25 Update: Partially Met: Completing oral motor exercises with 80% with minimal cues. 2. The patient will produce sentence/phrase material with 85% intelligibility and minimal cues. 07/04/25 Update: Met: The patient is producing phrases/sentences with 85% intelligibility and minimal cues. 3. The patient will state and apply compensatory techniques for (slow rate, one word at a time and over articulation) minimal cues. 07/04/25 Update: Partially Met: Applying technique 75-80% of time with minimal cues. Target Visit [address] Goal 2 Goal / Goal Update Updated Intelligibility Goals: 1. The patient will complete oral motor exercises with 85% and minimal cues. 2. The patient will state and apply compensatory techniques (slow rate, one word a t a time, over articulation) 85% of the time and minimal cues. 3. The patient will project verbal responses at 60 decibels (as measured by a voice meter) with speech strategies in simple exchanges 80% of the time and minimal cues. Target Visit 20
--- NOTE | 2025-07-17 11:04 | STOPDC ---
Assessment and note entered by Nguyen Luis PAY AGENT Evaluation Information Assessment Status Discharge - Pt Not Present Assessment ST Clinical Summary Initial Evaluation: The patient is an 79 year old male referred for a speech-language evaluation. He is post CVA with left side weakness and was recently discharge from home health services to begin outpatient treatment. The patient states he is most concerned with memory, speech production, and word retrieval. The patient was administered the [facility] Adult Cognitive Evaluation. Areas assessed included: Memory, Problem solving, Thought Organization, and Auditory Processing. The patient demonstrated the following deficits. Moderately impaired memory for immediate memory 80 %, Short-term memory 70%, Delayed memory 70%. Problem Solving deficits for Simple problems 70% and Complex problems 70%. Thought Organization, Functional Math, and Auditory Processing required extra time to process and complete but were within normal limits. The patient was noted to have word searching intermittently when attempting to express ideas and mildly dysarthria speech at sentence/phrase level due to lingual weakness and decreased left labial seal. Recommend outpatient speech services 2x week x 10 visits to address Cognition, Verbal Expression, and Speech intelligibility. Re-Evaluation 07/04/25: The patient was re-administered the [facility] Adult Cognitive Evaluation. Areas assessed included: Memory, Problem solving, Thought Organization, and Auditory Processing. The patient demonstrated the following deficits. Mildly impaired memory for immediate memory (80% Initial evaluation) 90%, Short-term memory (70% Initial Evaluation) 85%, Delayed memory (70% Initial Evaluation) 80%. Problem Solving deficits for Simple problems (70% Initial Evaluation) 100% and Complex problems (70% Initial Evaluation) 85%. Thought Organization, Functional Math, and Auditory Processing required extra time to process and complete but were within normal limits. The patient was noted to have reduced word searching when expressing complex ideas. Dysarthric speech at sentence/phrase level due to lingual weakness and decreased left labial seal was improved to 85% . The patients vocal volume still frequently drops when speaking to a lower volume with reduced audible quality. Recommend outpatient speech services 2x week x 10 visits to address Cognition (Recall for complex information with increased delay time for recall/ and Abstract Reasoning), and Speech intelligibility/Voice for everyday communication. 07/17/25 Discharge: Patient had been making progress toward above listed goals. Admitted to hospital with medical status changes. Discharging to continue in rehabilitation program. Discharging outpatient services at this time. Plan of Care ST Services Indicated No
--- NOTE | 2025-07-17 11:17 | OPREHPOC ---
Outpatient Therapy Plan of Care This is a Multidisciplinary Plan of Care that may contain components documented by all disciplines (PT, OT, and ST.) PT Problem 1 PT Problem #1 Knowledge Deficit PT Goal 1 Goal / Goal Update *independent with HEP 07-17-25 d/c goals not assessed pt hospitalized Target Visit 10 PT Problem 2 PT Problem #2 Impaired Strength PT Goal 1 Goal / Goal Update increase strength of legs to improve mobility skills: 1* R LE 4/5 2 L LE 4-/5 3* sit/stand without use of UE x 5 reps from w/c 07-17-25 d/c goals not assessed pt hospitalized Target Visit 10 PT Problem 3 PT Problem #3 Impaired Functional Mobility PT Goal 1 Goal / Goal Update 1* pt ambulate with cane, 2 minute walking distance of 150' 2* Tinetti balance score of 21/26 3* 5 reps sit/stand from w/c in 20 seconds 4* pt report NO falls 07-17-25 d/c goals not assessed pt hospitalized Target Visit 10 OT Problem 1 OT Problem #1 Knowledge Deficit OT Goal 1 Goal / Goal Update 1. Patient to be independent with instructed materials/HEP. ---OT POC UPDATE 06/25/25--- 1. Met, continue as HEP is progressed Target Visit 20 OT Problem 2 OT Problem #2 Impaired Strength OT Goal 1 Goal / Goal Update Demonstrate improved functional strength of the (L ) UE for improved functional use for ADLs: 1. gross shoulder strength to 3/5 2. gross elbow strength to 2+/5 3. gross wrist strength to 2+/5 ---OT POC UPDATE 06/25/25--- 1. progressing, continue 2. met, upgrade to 3+/5 3. progressing, continue Target Visit 20 OT Problem 3 OT Problem #3 Impaired Safety Awareness OT Goal 1 Goal / Goal Update 1. Patient to safely utilize his walker without cues for safety during therapy sessions. ---OT POC UPDATE 06/25/25--- 1. Not assessed this date. Patient presents with his cane, using a w/c for mobility from the [employer]. Target Visit [address] Problem #[address] Goal 1 Goal / Goal Update The patient will participate in home programming to improve carry over/generalization of skills to the home environment. Update: 07/04/25: Met: The patient has begun to use compensatory techniques for word finding and memory. Target Visit [address] Goal 2 Goal / Goal Update Updated Knowledge Goal: The patient will continue to carry over strategies for memory, voice, and word-retrieval with a HEP. Target Visit [address] Problem 2 ST Problem #[address] Goal 1 Goal / Goal Update Cognition: 1. The patient will recall short paragraph length information 2-3 critical details with 85% and minimal cues. 07/04/25 Update: Met: The patient is able to recall simple paragraph length information with 85% and minimal cues. 2. The patient will determine the best solution for everyday home/community scenario problems with 85% and minimal cues 07/04/25 Update: Met: The patient is completing home/community problem solving 90-100% Target Visit [address] Goal 2 Goal / Goal Update Updated Cognition Goals: 1. The patient will recall moderately complex paragraph length information 3-4 details with 85% and minimal cues. Updated: 07/17/25: Not Met: Discharged to hospital medical status change Recall with 80% 3 details 2. The patient will recall 3 details provided auditorily after a 3-5 minute delay with 80% and minimal cues. Updated: 07/17/25: Not Met: Discharged to the hospital medical status change Recall 1-2 details after 5 minute delay 3. The patient will complete complex abstract reasoning with 85% and minimal cues. Updated: 07/17/25: Met: 85% minimal cues Target Visit [address] Problem #[address] Goal 1 Goal / Goal Update Verbal Expression 1. The patient will complete complex word finding activities with 85% and minimal cues 07/04/25 Update: Met: The patient is completing complex word-retrieval with 85% and minimal cues. Target Visit [address] Problem 4 ST Problem #[address] Goal 1 Goal / Goal Update Intelligibility: 1. The patient will complete oral motor exercises with 85% and minimal cues. 07/04/25 Update: Partially Met: Completing oral motor exercises with 80% with minimal cues. 2. The patient will produce sentence/phrase material with 85% intelligibility and minimal cues . 07/04/25 Update: Met: The patient is producing phrases/sentences with 85% intelligibility and minimal cues. 3. The patient will state and apply compensatory techniques for (slow rate, one word at a time and over articulation) minimal cues. 07/04/25 Update: Partially Met: Applying technique 75-80% of time with minimal cues. Target Visit [address] Goal 2 Goal / Goal Update Updated Intelligibility Goals: 1. The patient will complete oral motor exercises with 85% and minimal cues. Updated: 07/17/25: Not Met not addressed 2. The patient will state and apply compensatory techniques (slow rate, one word a t a time, over articulation) 85% of the time and minimal cues. Updated: 07/17/25: Not Met. Admitted to hospital with medical status change. completing 75% of time . 3. The patient will project verbal responses at 60 decibels (as measured by a voice meter) with speech strategies in simple exchanges 80% of the time and minimal cues. Updated: 07/17/25: Not Met. Admitted to hospital medical status change. Completing 65% of time Target Visit 20
--- NOTE | 2025-07-17 11:17 | PTOPDC ---
Assessment and note entered by Breana Edwards, PT Assessment Status Discharge - Pt Not Present ICD-10 Condition Codes (PT) Difficulty Walking R26.2,Abnormalities of gait and mobility R26.9,Weakness R53.1 Onset December 2024 Subjective Information pt was not seen this date. Assessment PT Clinical Summary Abrahan has received 6 PT sessions, from May 16 to July 11. He was admitted to the hospital. Discharge PT due to hospitalization. The goals were not addressed. Plan of Care PT Services Indicated No
--- NOTE | 2025-07-17 15:41 | OTOPDC ---
Assessment and note entered by Jesse Montoya, OTR/L, PHILLIPT OT D/C 07/17/25 OT Clinical Summary Patient has been hospitalized and plans to discharge to rehab following his acute admission. Discharging outpatient OT at this time as he will need new orders to return.
== END 2025-07-20 09:25 | disposition home or self-care (01) ==
LOC: ANHST 12:30
PROVIDERS: PCP Family Medicine; Visit Provider Nurse Practitioner Family
DX: I69.320 Aphasia following cerebral infarction (principal); I69.322 Dysarthria following cerebral infarction; I25.2 Old myocardial infarction; R29.6 Repeated falls
CPT/HCPCS: 92507; 92523; 97110; 97112; 97116; 97161; 97165; 97530

== ENCOUNTER 2025-07-11 14:33 | Inpatient (IN) | payer MEDICARE, SELFPAY ==
[2025-07-11] VITALS (8 sets, daily range): BP systolic 99–140; BP diastolic 34–83; PULSE 34–91; RESP 13–20; TEMP 36.3–36.7; O2SAT 97–100; BMI 27.3
--- NOTE | ~2025-07-11 | CT_ITS ---
EXAMINATION: CT brain wo steven, 07/11/2025 17:03 CDT HISTORY: Fall/weakmess COMPARISON: No comparisons available. Technique: Axial images obtained of the brain without contrast. One or more of the following dose reduction techniques were used: automated exposure control, adjustment of the mA and/or kV according to patient size, use of iterative reconstruction technique. Findings: Right basal ganglion lacunar infarct. No acute infarct or hemorrhage. No midline shift or mass effect. No extra-axial fluid collections. Mastoid air cells unremarkable. Sinuses and orbits unremarkable. No acute fracture. No significant facial or scalp soft tissue swelling evident. No radiopaque foreign body is seen. Impression: 1.No acute intracranial abnormality. Reviewed, dictated and finalized at location P. Impression: 1.No acute intracranial abnormality.
--- NOTE | ~2025-07-11 | CT_ITS ---
EXAMINATION: CT cervical spine wo con COMPARISON: None HISTORY: Fall/weakmess TECHNIQUE: Axial images were obtained through the spine without IV contrast. Coronal, sagittal reconstruction images were obtained from the axial views. CT scan performed using dose optimization techniques including the following automated exposure control; adjustment of mA and/or kV; use of iterative reconstruction technique. Automatic exposure control was used to reduce radiation dose. Permanent radiation dose record is archived to PACS. FINDINGS: Grade 1 anterolisthesis of C3 on C4, no fracture. Severe loss of disc height C4-5 C5-6 and C6-7 with moderate to severe canal and foraminal stenosis. Soft tissues demonstrate postsurgical changes in the thyroid bed. Impression: No acute abnormality. Reviewed, dictated and finalized at location P. Impression: No acute abnormality.
--- NOTE | ~2025-07-11 | CT_ITS ---
EXAMINATION: CT chest abdomen pelvis w con DATE: 07/11/2025 18:14 INDICATION: Generalized weakness. TECHNIQUE: Computed tomography (CT) of the chest, abdomen, and pelvis was performed with 100 mL Omnipaque 350 intravenous contrast. Automated exposure control and iterative reconstruction technique were employed. The dose-length product was 947.66 mGy-cm. COMPARISON: Chest CT 06/08/2025 FINDINGS: CHEST CT: There is mild atelectasis bilaterally. There is mild scarring at left lung apex. There is a 3 mm nodule in right upper lobe, likely benign. There is mild emphysema. No pleural effusion. Cardiomegaly is noted. There are coronary artery calcifications. There are calcifications of the aortic valve. No pericardial effusion. There are changes of thyroidectomy. There is a small sliding hiatal hernia. There are surgical clips around the diaphragmatic hiatus. There is severe cervical and thoracic spondylosis. There is mild chronic anterior wedging of multiple thoracic vertebral bodies. ABDOMEN/PELVIS CT: There is a 1.9 cm cyst in the liver. The gallbladder, spleen, pancreas, and adrenal glands are normal. There are cysts in the kidneys measuring up to 3.0 cm on the left. There is a 9 mm stone in right renal pelvis. There is a 2 mm stone in right kidney. The prostate is moderately enlarged. There are bilateral inguinal hernias containing fat. There are no dilated loops of bowel. The appendix is normal. There are no pathologically enlarged lymph nodes. There is no free intraperitoneal fluid. There is a 3.5 cm fusiform infrarenal aortic aneurysm. There is severe lower lumbar spondylosis. IMPRESSION: 1. Small sliding hiatal hernia. 2. Bilateral inguinal hernias containing fat. 3. 3.5 cm fusiform infrarenal aortic aneurysm. Reviewed, dictated and finalized at location E.
--- NOTE | ~2025-07-11 | XR_ITS ---
EXAMINATION: XR chest 1V portable COMPARISON: No comparisons available. HISTORY: fatigue, hypotension FINDINGS: Postsurgical changes noted otherwise the lungs are clear No pneumothorax. Heart is normal size. Mediastinal and hilar contours are within normal limits. Bony thorax no acute abnormality. Miscellaneous: None Impression: No acute cardiopulmonary abnormality. Reviewed, dictated and finalized at location P. Impression: No acute cardiopulmonary abnormality.
--- NOTE | 2025-07-11 14:37 | ECG_ITS ---
Test Date: 2025-07-11 14:39:23 Measurements Intervals Anderson Rate: 66 P: 66 NM: 156 QRS: -26 QRSD: 99 T: 95 QT: 408 QTc: 429 Interpretive Statements SINUS RHYTHM WITH VENTRICULAR BIGEMINY MINIMAL Q WAVES- HIGH LATERAL LEADS BORDERLINE ST-T WAVE ABNORMALITY- HIGH LATERAL LEADS BASELINE ARTIFACT- I, II, AVR, AVL, AVF, V4-V6 BORDERLINE ECG Compared to ECG 06/08/2025 22:25:34 NO SIGNIFICANT CHANGE Electronically Signed On 07-11-2025 15:11:04 CDT by Finn Caban D.O.
--- OUTSIDE RECORDS SUMMARY | 2025-07-11 14:38 | XMS_ITS | Encounter Summary ---
Author Organization [facility] Address [address] [place] [address] Phone Care Team Providers Care Compressor Station Operator Name Role Phone Santino Funk MD Primary Care Provider + Unknown, Notinfile Primary Care Provider Unavail able No, Physician Primary Care Provider [phone] Santino Funk MD Primary Care Provider + Wolfgang Serrano MD Primary Care Provider Wolfgang Serrano MD Primary Care Provider Wolfgang Serrano MD Unavailable [phone] Unknown, Notinfile Unavailable Unavailable Santino Funk MD Unavailable [phone] Chuy Enriquez MD Unavailable [phone] Luis Felipe Cedillo MD Unavailable [phone] Marlene Thornton MD Unavailable [phone] Encounter Details Date Type Department Care Team (Late st Contact Info) Description 02/15/2018 Orders Only [facility] ProviderGarett MD [address] [place] [address] Social History Tobacco Use Types Packs/Day Years Used Date Smoking Tobacco: Former Alcohol Use Standard Drinks/Week Comments Yes 0 (1 standard drink = 0.6 oz pur e alcohol) Sex and Gender Information Value Date Recorded Sex Assigned at Not on file Legal 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 Gender Identity Not on file Sexual [...] COVID: Suspected 12/17/2021 12/17/2021 12/17/2021 10:19 PM BUTTERMILK DRIER OPERATOR documented as of this encounter Care Teams Compressor Station Operator Relationship Specialty [place] [address] [facility] [address] [place] [address] PCP - General 11/12/16 03/11/22 Unknown, Notinfile PCP - General 03/12/22 05/13/22 No, Physician PCP - General 05/14/22 09/29/22 [place] [address] [address] [place] [address] PCP - General Internal Medicine 09/30/22 05/04/23 Wolfgang Serrano MD PCP - General Family Medicine 05/05/23 08/02/24 Wolfgang Serrano MD [address] [address] PCP - General Family Medicine 08/03/24 Wolfgang Serrano MD Family Medicine 08/03/24 Unknown, Notinfile 03/12/22 [place] [address] [address] [place] [address] 03/12/22 Chuy Enriquez MD [address] [facility] [address] [place] [address] Consulting Physician Pulmonary Disease 10/13/23 Luis Felipe Cedillo MD [address] [place] [address] Consulting Physician Gastroenterology 10/13/23 Marlene Thornton MD [address] [facility] [address] [place] [address] Surgeon Vascular Surgery 11/10/23 documented as of this encounter
--- OUTSIDE RECORDS SUMMARY | 2025-07-11 14:39 | XMS_ITS | Clinical Summary ---
Author Organization [facility] Address [address] [place] [address] Care Team Providers Care Perianesthesia Nurse Name Role Phone Wolfgang Serrano MD Primary Care Provider Wolfgang Serrano MD Unavailable Unknown, Notinfile Unavailable Unavailable Santino Funk MD Unavailable Chuy Enriquez MD Unavailable [phone] Luis Felipe Cedillo MD Unavailable Marlene Thornton MD Unavailable [phone] Allergies No known active allergies Medications cholecalciferol [...] 06/22/2024 Assessment & Plan (10/05/2024 9:45 AM RESPIRATORY CARE PRACTITIONER): The patient has advanced arthritis of the [...] 2025 Assessment & Plan (11/18/2023 2:34 PM RESPIRATORY CARE PRACTITIONER): RLL nodule in a patient without clear [...] maintenance/vaccinations Assessment & Plan (11/18/2023 2:34 PM RESPIRATORY CARE PRACTITIONER): Related to hiatal hernia, reflux Sx are [...] (12/05/2019): Added automatically from request for surgery [id number] Subchondral insufficiency fracture of condyle of left [...] of condyle of left femur ([facility]) Closed fracture of left tibi [...] current injury Vertigo Alzheimer's dementia ([facility]) Diverticulitis of colon Incontinence of urine Hypothyroidism Fatigue Vision changes Easy bruisability Frequent urination Back pain Muscle weakness Cramps of lower extremity Clotting disorder Hyperlipidemia Hypertension Enlarged prostate Stroke ([facility]) 12/09/2023 left leg works o [...] the past 12 months has th e [employer], gas, oil, or water company threatened to [...] often do you attend chur ch or episcopal services? More than 4 times per year [...] Patient Health Questionnaire-2 Score 0 01/06/2024 [facility] - [...] on file Legal Sex Male 3:25 PM RESPIRATORY CARE PRACTITIONER Gender Identity Not on file Sexual Orientation Not on file Obstetrics History Last Filed Vital Signs Vital Sign Reading Time Taken Comments Blood Pressure 99/66 01/15/2025 3:11 PM CDT Pulse 59 01/15/2025 3:11 PM CDT Temperature 36.6 C (97.8 F) 01/15/2025 3:11 PM CDT Respiratory Rate 16 10/17/2024 11:19 AM RESPIRATORY CARE PRACTITIONER Oxygen Saturation 99% 10/17/2024 11:19 AM RESPIRATORY CARE PRACTITIONER Inhaled Oxygen Concentration - - Weight 81.6 [...] 11/12/2023, 10/11/2023 Medical Devices Implanted Type Area Slip Laster Device Identifier Shelf Expiration Date Model / Serial / Lot [employer] 201.050 Nif - [id number] Implanted:Qty: 1 on 09/22/2018 by George Sepulveda MD at [facility] al: Knee [employer] 04/09/2020 201.050 / / [id number] Subchondroplasty Knee Kit Implanted:Qty: 1 on 09/22/2018 by George Sepulveda MD at [facility] al: Knee [employer] 11/10/2020 402.203(201.0 50) / [id number] / [id number] Description:KIT CONTAINS IMP LANT: ACCUFILL, 5ML, REF# 201.050, LOT # [id number], EX: 11-10-2020 System Accumix Bone Cement - [id number] Implanted:Qty: 1 on 09/22/2018 by George Sepulveda MD at [facility] [employer] 03/28/2021 311.100 / / [id number] [employer] [id number] Palacos R+G High Viscosity Cement Bone Gentamicin Arthroplasty - [id number] Implanted:Qty: 1 on 11/24/2021 by George Sepulveda MD at [facility] Right: Knee [employer] 05/10/2024 [id number] / / [id number] [employer] [id number] Persona Cruciate Retain Knee Right 11 Narrow Component Femoral - [id number] Implanted:Qty: 1 on 11/24/2021 by George Sepulveda MD at [facility] Right: Knee [employer] 07/13/2030 [id number] / / [id number] [employer] [id number] Persona 35mm Knee Component Patellar All Poly Latex Free - [id number] Implanted:Qty: 1 on 11/24/2021 by George Sepulveda MD at [facility] Right: Knee [employer] 03/25/2029 [id number] / / [id number] [employer] [id number] Persona 14mm 30+ Mm Knee Tibia Taper Extension Stem - [id number] Implanted:Qty: 1 on 11/24/2021 by George Sepulveda MD at [facility] Right: Knee [employer] 07/27/2031 [id number] / / [id number] [employer] [id number] Persona Natural Tibia Stem Knee Right 5d G Baseplate Tibial - [id number] Implanted:Qty: 1 on 11/24/2021 by George Sepulveda MD at [facility] Right: Knee [employer] 05/13/2031 [id number] / / [id number] [employer] [id number] Persona 10mm Knee Insert Articular Vivacit-E Sterile - [id number] Implanted:Qty: 1 on 11/24/2021 by George Sepulveda MD at [facility] Right: Knee [employer] 05/06/2026 [id number] / / [id number] Procedures Procedure Name Priority Date/Time Associated Diagnosis Comments CT CHEST ABDOMEN PELVIS W CONTRAST ED Urgent/IP Urgent 10/11/2023 10:12 AM RESPIRATORY CARE PRACTITIONER from Last 3 Months or Most Recently Relevant to Health Maintenance Results * CT Chest Abdomen Pelvis W Contrast (10/11/2023 10:12 AM RESPIRATORY CARE PRACTITIONER) Anatomical Region Laterality Modality Body N/A Computed Tomogra phy 10/11/2023 11:0 3 AM RESPIRATORY CARE PRACTITIONER Impressions 10/11/2023 11:03 AM RESPIRATORY CARE PRACTITIONER A 12 x 12 mm pulmonary nodule in the lateral aspect of the right costophrenic sulcus, new since 2019, is suspicious for primary lung malignancy. Electronically signed by: Jayshree Giles MD, Ph.D Narrative 10/11/2023 11:03 AM RESPIRATORY CARE PRACTITIONER EXAMINATION: Computed tomography of chest/abdomen/pelvis with intravenous [...] by: Jayshree Giles MD, Ph.D Taylor Bland MANUAL EQUIPMENT MECHANIC IMG CT PROCEDURES Final Result from Last 3 Months or Most Recently Relevant [place] [address] [employer] CHOICE MEDICARE [place] [address] [employer] OOS MEDICARE [employer] CHOICE MEDICARE PPO [address] [place] [address] Advance Directives For more information, please contact: [phone] Documents on File Type Date Recorded Patient Gag Writer Expl anation ADVANCE DIRECTIVE 01/10/2024 3:33 PM LIVING WILL ADVANCE DIRECTIVE 01/10/2024 3:33 PM POWER OF DIRECTOR OF RELIGIOUS ACTIVITIES-MEDICAL * Full Code (Latest Code Status on [...] 5:17 PM 12/30/2019 5:42 PM Care Teams Perianesthesia Nurse Relationship Specialty Start Date End Date Wolfgang Serrano MD [address] [place] [address] PCP - General Family Medicine 08/03/24 Wolfgang Serrano MD [address] [place] [address] Family Medicine 08/03/24 Unknown, Notinfile 03/12/22 [place] [address] [facility] [address] [place] [address] 03/12/22 Chuy Enriquez MD [address] [facility] [address] [place], [place] [id number] Consulting Physician Pulmonary Disease 10/13/23 Luis Felipe Cedillo MD [address] [facility] [address] [place], [place] [id number] Consulting Physician Gastroenterology 10/13/23 Marlene Thornton MD [address] [facility] [address] [place], [place] [id number] Surgeon Vascular Surgery 11/10/23
--- OUTSIDE RECORDS SUMMARY | 2025-07-11 16:32 | XMS_ITS | Encounter Summary ---
Author Organization [facility] Address [address] [place] [address] Phone Care Team Providers Care Life Care Planner Name Role Phone Santino Funk MD Primary Care Provider + Unknown, Notinfile Primary Care Provider Unavail able No, Physician Primary Care Provider [phone] Santino Funk MD Primary Care Provider + Wolfgang Serrano MD Primary Care Provider [phone] Wolfgang Serrano MD Primary Care Provider Wolfgang Serrano MD Unavailable [phone] Unknown, Notinfile Unavailable Unavailable Santino Funk MD Unavailable [phone] Chuy Enriquez MD Unavailable [phone] Luis Felipe Cedillo MD Unavailable [phone] Marlene Thornton MD Unavailable [phone] Encounter Details Date Type Department Care Team (Late st Contact Info) Description 02/15/[address] 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 Gender Identity Not on file Sexual [...] COVID: Suspected 12/17/2021 12/17/2021 12/17/2021 10:19 PM MOBILE ENGINEER documented as of this encounter Care Teams Life Care Planner Relationship Specialty [place] [address] [facility] [address] [place] [address] PCP - General 11/12/16 03/11/22 Unknown, Notinfile PCP - General 03/12/22 05/13/22 No, Physician PCP - General 05/14/22 09/29/22 [place] [address] [address] [place] [address] PCP - General Internal Medicine 09/30/22 05/04/23 Wolfgang Serrano MD PCP - General Family Medicine 05/05/23 08/02/24 Wolfgang Serrano MD [address] [address] PCP - General Family Medicine 08/03/24 Wolfgang Serrano MD Family Medicine 08/03/24 Unknown, Notinfile 03/12/22 [place] [address] [address] [place] [address] 03/12/22 Chuy Enriquez MD [address] [facility] [address] [place] [address] Consulting Physician Pulmonary Disease 10/13/23 Luis Felipe Cedillo MD [address] [place] [address] Consulting Physician Gastroenterology 10/13/23 Marlene Thornton MD [address] [facility] [address] [place] [address] Surgeon Vascular Surgery 11/10/23 documented as of this encounter
--- OUTSIDE RECORDS SUMMARY | 2025-07-11 16:32 | XMS_ITS | Clinical Summary ---
Author Organization [facility] Address [address] [place] [address] Care Team Providers Care Collaborating Supervising Physician Name Role Phone Wolfgang Serrano MD Primary Care Provider Wolfgang Serrano MD Unavailable Unknown, Notinfile Unavailable Unavailable Santino Funk MD Unavailable Chuy Enriquez MD Unavailable [phone] Luis Felipe Cedillo MD Unavailable [phone] Marlene Thornton MD Unavailable Allergies No known [...] 06/22/2024 Assessment & Plan (10/05/2024 9:45 AM PHYSICIANS AND SURGEONS): The patient has advanced arthritis of the [...] 2025 Assessment & Plan (11/18/2023 2:34 PM PHYSICIANS AND SURGEONS): RLL nodule in a patient without clear [...] maintenance/vaccinations Assessment & Plan (11/18/2023 2:34 PM PHYSICIANS AND SURGEONS): Related to hiatal hernia, reflux Sx are [...] (12/05/2019): Added automatically from request for surgery [id number] Subchondral insufficiency fracture of condyle of left [...] fr acture of condyle of left femur ([facility]) Closed fracture of left tibi al [...] knee as current injury Vertigo Alzheimer's dementia ([facility]) Diverticulitis of colon Incontinence of urine Hypothyroidism Fatigue Vision changes Easy bruisability Frequent urination Back pain Muscle weakness Cramps of lower extremity Clotting disorder Hyperlipidemia Hypertension Enlarged prostate Stroke ([facility]) 12/09/2023 left leg works o k, [...] materials from doctor or pharmacy Sometimes 03/08/2024 [place] Util[employer] Answer Date Recorded In the past 12 months has th e [employer], gas, oil, or water company threatened to [...] Recorded Patient Health Questionnaire-2 Score 0 01/06/2024 [facility] - [...] on file Legal Sex Male 3:25 PM PHYSICIANS AND SURGEONS Gender Identity Not on file Sexual Orientation Not on file Obstetrics History Last Filed Vital Signs Vital Sign Reading Time Taken Comments Blood Pressure 99/66 01/15/2025 3:11 PM CDT Pulse 59 01/15/2025 3:11 PM CDT Temperature 36.6 C (97.8 F) 01/15/2025 3:11 PM CDT Respiratory Rate 16 10/17/2024 11:19 AM PHYSICIANS AND SURGEONS Oxygen Saturation 99% 10/17/2024 11:19 AM PHYSICIANS AND SURGEONS Inhaled Oxygen Concentration - - Weight 81.6 [...] 11/12/2023, 10/11/2023 Medical Devices Implanted Type Area Asbestos Coverer Device Identifier Shelf Expiration Date Model / Serial / Lot [employer] 201.050 Nif - [id number] Implanted:Qty: 1 on 09/22/2018 by George Sepulveda MD at [facility] al: Knee [employer] 04/09/2020 201.050 / / [id number] Subchondroplasty Knee Kit Implanted:Qty: 1 on 09/22/2018 by George Sepulveda MD at [facility] al: Knee [employer] 11/10/2020 402.203(201.0 50) / [id number] / [id number] Description:KIT CONTAINS IMP LANT: ACCUFILL, 5ML, REF# 201.050, LOT # [id number], EX: 11-10-2020 System Accumix Bone Cement - [id number] Implanted:Qty: 1 on 09/22/2018 by George Sepulveda MD at [facility] [employer] 03/28/2021 311.100 / / [id number] [employer] [id number] Palacos R+G High Viscosity Cement Bone Gentamicin Arthroplasty - [id number] Implanted:Qty: 1 on 11/24/2021 by George Sepulveda MD at [facility] Right: Knee [employer] 05/10/2024 [id number] / / [id number] [employer] [id number] Persona Cruciate Retain Knee Right 11 Narrow Component Femoral - [id number] Implanted:Qty: 1 on 11/24/2021 by George Sepulveda MD at [facility] Right: Knee [employer] 07/13/2030 [id number] / / [id number] [employer] [id number] Persona 35mm Knee Component Patellar All Poly Latex Free - [id number] Implanted:Qty: 1 on 11/24/2021 by George Sepulveda MD at [facility] Right: Knee [employer] 03/25/2029 [id number] / / [id number] [employer] [id number] Persona 14mm 30+ Mm Knee Tibia Taper Extension Stem - [id number] Implanted:Qty: 1 on 11/24/2021 by George Sepulveda MD at [facility] Right: Knee [employer] 07/27/2031 [id number] / / [id number] [employer] [id number] Persona Natural Tibia Stem Knee Right 5d G Baseplate Tibial - [id number] Implanted:Qty: 1 on 11/24/2021 by George Sepulveda MD at [facility] Right: Knee [employer] 05/13/2031 [id number] / / [id number] [employer] [id number] Persona 10mm Knee Insert Articular Vivacit-E Sterile - [id number] Implanted:Qty: 1 on 11/24/2021 by George Sepulveda MD at [facility] Right: Knee [employer] 05/06/2026 [id number] / / [id number] Procedures Procedure Name Priority Date/Time Associated Diagnosis Comments CT CHEST ABDOMEN PELVIS W CONTRAST ED Urgent/IP Urgent 10/11/2023 10:12 AM PHYSICIANS AND SURGEONS from Last 3 Months or Most Recently Relevant to Health Maintenance Results * CT Chest Abdomen Pelvis W Contrast (10/11/2023 10:12 AM PHYSICIANS AND SURGEONS) Anatomical Region Laterality Modality Body N/A Computed Tomogra phy 10/11/2023 11:0 3 AM PHYSICIANS AND SURGEONS Impressions 10/11/2023 11:03 AM PHYSICIANS AND SURGEONS A 12 x 12 mm pulmonary nodule in the lateral aspect of the right costophrenic sulcus, new since 2019, is suspicious for primary lung malignancy. Electronically signed by: Jayshree Giles MD, Ph.D Narrative 10/11/2023 11:03 AM PHYSICIANS AND SURGEONS EXAMINATION: Computed tomography of chest/abdomen/pelvis with intravenous [...] by: Jayshree Giles MD, Ph.D Taylor Bland RAIL SPECIALIST IMG CT PROCEDURES Final Result from Last 3 Months or Most Recently Relevant to Health [place] [address] [employer] CHOICE MEDICARE [place] [address] [employer] OOS MEDICARE [employer] CHOICE MEDICARE PPO [address] [place] [address] Advance Directives For more information, please contact: [phone] Documents on File Type Date Recorded Patient Assistant Community Manager Expl anation ADVANCE DIRECTIVE 01/10/2024 3:33 PM LIVING WILL ADVANCE DIRECTIVE 01/10/2024 3:33 PM POWER OF ANALYSIS CONSULTANT-MEDICAL * Full Code (Latest Code Status on [...] 5:17 PM 12/30/2019 5:42 PM Care Teams Collaborating Supervising Physician Relationship Specialty Start Date End Date Wolfgang Serrano MD [address] [place] [address] PCP - General Family Medicine 08/03/24 Wolfgang Serrano MD [address] [place] [address] Family Medicine 08/03/24 Unknown, Notinfile 03/12/22 [place] [address] [facility] [address] [place] [address] 03/12/22 Chuy Enriquez MD [address] [facility] [address] [place], [place] [id number] Consulting Physician Pulmonary Disease 10/13/23 Luis Felipe Cedillo MD [address] [facility] [address] [place], [place] [id number] Consulting Physician Gastroenterology 10/13/23 Marlene Thornton MD [address] [facility] [address] [place], [place] [id number] Surgeon Vascular Surgery 11/10/23
[2025-07-11 16:33] LABS: Hematocrit 41.6 % (42.0-52.0); Hemoglobin 13.3 g/dL (14.0-18.0); Immature Granulocyte Percent A 0.3 % (0-0.5); Lymphocytes Absolute Auto 2.56 K/mm3 (0.9-3.2); Mean Corpuscular HGB Conc 32.0 g/dl (32-36); Mean Corpuscular Hemoglobin 32.5 pg (26-34); Mean Corpuscular Volume 101.7 fl (80-100); Nucleated Red Blood Cells Absolute Auto 0.000 K/mm3 (0.0-0.012); Nucleated Red Blood Cells Perc 0.0 % (0.0-0.2); Platelet Count Result 185 k/mm3 (150-375); Red Blood Count 4.09 M/mm3 (4.6-6.20); White Blood Count 7.6 K/mm3 (4.5-10.0)
[2025-07-11] MEDS: LACTATED RINGERS 1,000 ML 999 ML IV CONT (16:35)
[2025-07-11 16:44] LABS: INR 1.0; Prothrombin Time 13.5 Seconds (11.1-14.7)
[2025-07-11 16:45] LABS: Partial Thromboplastin Time 31.8 Seconds (22.3-36.8)
[2025-07-11 16:46] LABS: Negative Monotest Control Negative (Negative); Positive Monotest Control Positive (Positive)
[2025-07-11 16:49] LABS: Alanine Aminotransferase 14 U/L (6-50); Albumin Level 3.7 g/dL (3.5-5.1); Alkaline Phosphatase 85 U/L (38-126); Anion Gap 5 mmol/L (4-12); Aspartate Amino Transferase 20 U/L (17-59); Bilirubin,Total 0.5 mg/dL (0.2-1.3); Blood Urea Nitrogen 30 mg/dL (9-20); Calcium 8.9 mg/dL (8.4-10.2); Carbon Dioxide 31 mmol/L (22-30); Chloride 103 mmol/L (98-107); Estimated CRCL calculation 36 ml/min; Estimated Glomerular Filt Rate 44; Glucose 77 mg/dL (65-110); Lipase 57 U/L (23-300); Magnesium 2.1 mg/dL (1.6-2.3); Potassium 4.2 mmol/L (3.4-5.0); Sodium 139 mmol/L (137-145); Total Protein 7.2 g/dL (6.3-8.2)
[2025-07-11 17:00] LABS: NT Pro B Type Natriuretic Pept 878 pg/mL (19.9-100); Troponin I < 0.012 ng/mL (0.000-0.034)
[2025-07-11 17:01] LABS: Influenza A QL RT-PCR Negative (Negative); Influenza B QL RT-PCR Negative (Negative); RSV RNA, RT-PCR Negative (Negative); SARS-CoV-2 RNA PCR Negative (Negative)
--- NOTE | 2025-07-11 17:15 | ED.GENADULT ---
HPI - General Adult General Chief complaint: Arrhythmia/Palpitations Stated complaint: head messed up-passing out, low HR Time Seen by Provider: 07/11/25 15:13 History of Present Illness HPI narrative: This is an 79-year-old male presenting for generalized weakness. Patient says he has been feeling weak and fatigued for the last several days. His says he has not been getting out of bed. He did go to physical therapy today and during physical therapy they noted that he was hypotensive and bradycardic. His then brought him to the hospital for evaluation. Patient denies fevers chills chest pain difficulty breathing abdominal pain or urinary symptoms. He has not have any nausea vomiting or diarrhea. He has had normal p.o. intake. Related Data Home Medications ?Medication ?Instructions ?Recorded ?Confirmed ?Last Taken ?Type furosemide 20 mg tablet (Lasix) 20 mg PO DAILY 08/13/23 06/15/25 02/01/24 History gabapentin 100 mg capsule 600 mg PO TID 08/13/23 06/15/25 02/01/24 History tizanidine 2 mg tablet 2 mg PO Q8H PRN Muscle Pain 08/13/23 06/15/25 02/02/24 08:00 History melatonin 10 mg tablet 10 mg PO HS PRN Sleep 10/10/23 06/15/25 02/01/24 History cholecalciferol (vitamin D3) 50 50 mcg PO DAILY 11/09/23 06/15/25 02/01/24 History mcg (2,000 unit) capsule aspirin 81 mg chewable tablet 81 mg PO DAILY 01/26/24 06/15/25 02/01/24 History cetirizine 10 mg tablet 10 mg PO DAILY 01/26/24 06/15/25 02/01/24 History rosuvastatin 40 mg tablet 40 mg PO DAILY 01/26/24 06/15/25 02/01/24 History ferrous sulfate 325 mg (65 mg 325 mg PO BID 01/06/25 06/15/25 Unknown History iron) tablet (FeroSul) mirabegron 25 mg tablet,extended 25 mg PO DAILY 01/06/25 06/15/25 Unknown History release 24 hr (Myrbetriq) tamsulosin 0.4 mg capsule 0.4 mg PO HS 01/06/25 06/15/25 Unknown History paroxetine HCl 20 mg tablet 20 mg PO QAM 02/16/25 06/15/25 02/15/25 History Allergies Allergy/AdvReac Type Severity Reaction Status Date / Time No Known Allergies Allergy Verified 07/11/25 14:41 [facility] Past Medical History Medical History History of myocardial infarction Snoring Excessive daytime sleepiness Stroke with left hemiparesis Leg wound, left Overactive bladder Aneurysm of infrarenal abdominal aorta Dyslipidemia 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 Seizure x2 in 1997 Benign prostatic hyperplasia Esophageal stricture Gastroesophageal reflux Hypothyroidism Esophageal diverticulum, acquired Colon polyp Arthritis Diverticulosis Anemia Diverticulitis Myasthenia gravis patient denies Surgical History Surgical History Hx of heart artery stent History of arthroplasty of right knee History of Noemy fundoplication History of thyroidectomy Status post dilatation of esophageal stricture Family History Family History Mother , age 85 Acute myocardial infarction Hypertension Heart disease Father , age 70 Acute myocardial infarction Chronic obstructive pulmonary disease History of blood clots Hypertension Heart disease Sibling Acute myocardial infarction Hypertension Heart disease Other Heart disease Social History Social History Social History: Surrogate medical decision maker: Alon Gtz, spouse. Code status: Full code. Smoking packs per day: 1 Smoking cigarettes per day: 20.0 Years smoked: 4 Smoking pack-years: 4.00 Smoking status: Never smoker Alcohol intake: current Drinks per week: 1 Substance use: never Substance use type: does not use Do You Feel Safe in your Home?: Yes Lack of Transportation: No Lack of Food: Never True Current Housing: I Have Housing Concerned About Future Housing: No Difficulty Paying Gas/Electric Bills: No Difficulty Paying for Meds: No Currently Unemployed: No Education: Bachelor's Degree Difficulty w/ Childcare or Family Care: No Living arrangements: with family Additional living arrangements comments: Lives in [place] with his spouse. They have 3 children. 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 Spiritual care concerns: No Exam Narrative: APPEARANCE: Patient appears exhausted Head: atraumatic. EYES: EOMI, NOSE: Atraumatic NECK: Trachea midline RESPIRATORY: No increased rate of breathing clear to auscultation CARDIOVASCULAR: RRR, no peripheral edema ABDOMINAL: Non-distended soft nontender MUSCULOSKELETAl: No obvious deformities NEURO: Alert. Moving 4/4 extremities SKIN:: Warm, dry. Normal color PSYCHIATRIC: Normal affect Course Vital Signs Vital signs: Vital Signs Temperature 98.0 F 07/11/25 14:37 Pulse Rate 34 L 07/11/25 14:37 Respiratory Rate 14 07/11/25 14:37 Blood Pressure 110/34 L 07/11/25 14:37 Pulse Oximetry 99 07/11/25 14:37 Oxygen Delivery Room Air 07/11/25 14:37 Temperature 98.0 F 07/11/25 14:37 Pulse Rate 87 07/11/25 16:34 Respiratory Rate 20 07/11/25 16:34 Blood Pressure 106/63 07/11/25 16:34 Pulse Oximetry 97 07/11/25 16:34 Oxygen Delivery Room Air 07/11/25 15:08 Medical Decision Making MDM Narrative Medical decision making narrative: -Course: 79-year-old male presenting for generalized weakness. Patient is well-known to me after multiple visits to the ER over the last several months. Today he appears unwell/lethargic which is not normal for him. Vital signs are stable. Physical exam is unremarkable. Sepsis workup obtained. Urinalysis indicative of infection. 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 Patient be started on ceftriaxone for typical UTI organisms and vancomycin to cover Enterococcus. Antibiotics to be narrow by the primary team as cultures become available. No 30 cc/kg bolus as he has normal blood pressures in lactic is not elevated. Patient will be admitted for further management. -DDX includes but is not limited to: Pneumonia UTI sepsis viral syndrome dehydration Vital Signs Vital Signs: Vital Signs Temperature 98.0 F 07/11/25 14:37 Pulse Rate 34 L 07/11/25 14:37 Respiratory Rate 14 07/11/25 14:37 Blood Pressure 110/34 L 07/11/25 14:37 Pulse Oximetry 99 07/11/25 14:37 Oxygen Delivery Room Air 07/11/25 14:37 Temperature 98.0 F 07/11/25 14:37 Pulse Rate 87 07/11/25 16:34 Respiratory Rate 20 07/11/25 16:34 Blood Pressure 106/63 07/11/25 16:34 Pulse Oximetry 97 07/11/25 16:34 Oxygen Delivery Room Air 07/11/25 15:08 Lab Data 07/11/25 16:26 07/11/25 16:26 Labs: Lab Results 07/11/25 07/11/25 07/11/25 Range/Units 15:54 16:15 16:26 WBC 7.6 (4.5-10.0) K/mm3 RBC 4.09 L (4.6-6.20) M/mm3 Hgb 13.3 L (14.0-18.0) g/dL Hct 41.6 L (42.0-52.0) % MCV 101.7 H (80-100) fl MCH 32.5 (26-34) pg MCHC 32.0 (32-36) g/dl RDW 14.6 H (11.5-14.5) % Plt Count 185 (150-375) k/mm3 MPV 11.3 H (7.4-10.4) fl Immature Gran % (Auto) 0.3 (0-0.5) % Neut % (Auto) 47.0 (45.5-73.1) % Lymph % (Auto) 33.9 (18.3-44.2) % Cloud % (Auto) 10.3 H (2.6-8.5) % Eos % (Auto) 7.7 H (0-4.4) % Baso % (Auto) 0.8 (0.2-1.2) % Lymph # (Auto) 2.56 (0.9-3.2) K/mm3 Cloud # (Auto) 0.8 H (0.1-0.6) K/mm3 Eos # (Auto) 0.6 H (0-0.3) K/mm3 Baso # (Auto) 0.1 (0.0-0.1) K/mm3 Abs Immat Gran (auto) 0.02 (0.00-0.031) K/mm3 Absolute Neuts (auto) 3.6 (1.3-6.7) K/mm3 Absolute Nucleated RBC 0.000 (0.0-0.012) K/mm3 Nucleated RBC % 0.0 (0.0-0.2) % PT 13.5 (11.1-14.7) Seconds INR 1.0 APTT 31.8 (22.3-36.8) Seconds Sodium 139 (137-145) mmol/L Potassium 4.2 (3.4-5.0) mmol/L Chloride 103 (98-107) mmol/L Carbon Dioxide 31 H (22-30) mmol/L Anion Gap 5 (4-12) mmol/L BUN 30 H (9-20) mg/dL Creatinine 1.52 H (0.7-1.3) mg/dL Estim Creat Clear Calc 36 ml/min Estimated GFR 44 L (59 - ) Glucose 77 (65-110) mg/dL POC Capillary Glucose 120 H (65-105) mg/dl Lactic Acid 1.4 (0.7-2.0) mmol/L Calcium 8.9 (8.4-10.2) mg/dL Phosphorus 3.0 (2.5-4.5) mg/dL Magnesium 2.1 (1.6-2.3) mg/dL Total Bilirubin 0.5 (0.2-1.3) mg/dL AST 20 (17-59) U/L ALT 14 (6-50) U/L Alkaline Phosphatase 85 (38-126) U/L Troponin I < 0.012 (0.000-0.034) ng/mL NT-Pro-B Natriuret Pep 878 H (19.9-100) pg/mL Total Protein 7.2 (6.3-8.2) g/dL Albumin 3.7 (3.5-5.1) g/dL Lipase 57 (23-300) U/L TSH (Reflex) Pending Monoscreen Negative (Negative) Influenza A (RT-PCR) Negative (Negative) Influenza B (RT-PCR) Negative (Negative) RSV (RT-PCR) Negative (Negative) SARS-CoV-2 RNA (RT-PCR) Negative (Negative) Discharge Plan Discharge Clinical Impression: Acute UTI Patient Disposition: Still a Patient Condition: Stable Patient Language: [place] Prescriptions: No Action cholecalciferol (vitamin D3) 50 mcg (2,000 unit) capsule 50 mcg PO DAILY metoprolol succinate 25 mg tablet extended release 24 hr 12.5 mg PO DAILY Qty: 45 2RF cetirizine 10 mg tablet 10 mg PO DAILY aspirin 81 mg Tablet,Chewable 81 mg PO DAILY rosuvastatin 40 mg Tablet 40 mg PO DAILY tamsulosin 0.4 mg capsule 0.4 mg PO HS ferrous sulfate [FeroSul] 325 mg (65 mg iron) tablet 325 mg PO BID mirabegron [Myrbetriq] 25 mg tablet extended release 24 hr 25 mg PO DAILY nitroglycerin [Nitrostat] 0.4 mg Tablet, Sublingual 0.4 mg sublingual Q5MIN PRN (Reason: Chest Pain) Qty: 20 0RF paroxetine HCl 20 mg tablet 20 mg PO QAM levothyroxine 175 mcg capsule 100 mcg PO DAILY Qty: 30 2RF acetaminophen 500 mg capsule 1,000 mg PO Q6H PRN (Reason: pain) Qty: 30 0RF lidocaine 4 % adhesive patch,medicated 1 patch topical DAILY PRN (Reason: pain) Qty: 10 0RF furosemide [Lasix] 20 mg Tablet 20 mg PO DAILY gabapentin 100 mg capsule 600 mg PO TID tizanidine 2 mg Tablet 2 mg PO Q8H PRN (Reason: Muscle Pain) melatonin 10 mg Tablet 10 mg PO HS PRN (Reason: Sleep) pantoprazole 40 mg tablet,delayed release (DR/EC) 40 mg PO BID Qty: 60 5RF clopidogrel 75 mg tablet 75 mg PO DAILY Qty: 90 2RF Follow-up/Referrals: Wolfgang Serrano MD [Primary Care Provider, Family Practice]
[2025-07-11 17:19] LABS: Thyroid Stimulating Hormone Reflex 0.092 uIU/mL (0.465-4.68)
[2025-07-11 17:47] LABS: Free T4 Free Thyroxine Reflex 2.16 ng/dL (0.78-2.19)
[2025-07-11 18:42] LABS: Total Triiodothyronine (T3) 0.93 NG/ML (0.82-1.58)
[2025-07-11 18:45] LABS: Add Urine Microscopic? YES; Appearance Urine Turbid (Clear); Glucose Urine UA Negative (Negative); Leukocyte Esterase Ur 3+ LEU/UL (Negative); Nitrate Urine Negative (Negative); Non Pathogenic Casts 0-2; Specific Grav Ur 1.030 (1.001-1.035)
[2025-07-11] MEDS: cefTRIAXone 1 GM in SODIUM CHLORIDE 0.9% IV 50 ML 100 ML IVPB (19:34)
[2025-07-11] MEDS: LACTATED RINGERS 1,000 ML 100 ML IV CONT (19:34)
[2025-07-11] MEDS: VANCOMYCIN 1,500 MG/NS 500 ML 1,500 MG/500 ML BAG 250 MG IVPB (19:42)
[2025-07-11 20:51] LABS: Troponin I < 0.012 ng/mL (0.000-0.034)
--- NOTE | 2025-07-11 21:26 | PM.IMHP ---
H&P: HPI History of Present Illness Date/Time: 07/11/25 21:26 Chief Complaint: Palpitations. Narrative: This is an 79-year-old male patient who came to the hospital with complaints of generalized weakness. He has been feeling weak and fatigued for the last several days. He has had a history of having a CVA with chronic left-sided weakness. The patient stated that he did physical therapy today and that he became bradycardic and hypotensive. His brought him to the emergency room for further evaluation. Patient denies any difficulty breathing or any urinary symptoms. He denies any nausea vomiting or diarrhea. His white count is normal. H&H is 13.3 and 41.6. This appears to be his baseline. His BUN is 30 creatinine 1.52 with a GFR 44. These values are close to his baseline. Point of care glucose is 120. Troponins are negative x2. His BNP is 878. His thyroid level is low at 0.092. His urine is turbid with 1+ protein trace ketones 3+ blood, 3+ leukocyte esterase, rbc's greater than 100, and urine wbc's greater than 100. The patient denies any palpitations or chest pain when I evaluated him. He stated that he did have a nurse monitoring on approximately 3 weeks ago. He is unsure of his results. Chest x-ray was read as no acute cardiopulmonary abnormality. Head CT was read as no acute intracranial abnormality. Cervical spine CTGrade 1 anterolisthesis of C3 on C4, no fracture. Severe loss of disc height C4-5 C5-6 and C6-7 with moderate to severe canal and foraminal stenosis. Soft tissues demonstrate postsurgical changes in the thyroid bed. Chest abdominal pelvis CT was read as small sliding hiatal hernia, bilateral inguinal hernias containing fat, 3.5 cm fusiform intra renal aortic aneurysm. The patient was started on ceftriaxone,, lactated Ringer's, and vancomycin. The patient is being admitted to inpatient status on the date of service of 07/11/2025 Review of Systems Constitutional: Constitutional: Reports as per HPI and Reports no additional constitutional complaints Eyes: Eyes: Reports as per HPI and Reports no additional eye complaints ENT: Reports no additional ear, nose, mouth, and throat complaints and Reports Normal hearing present Cardiovascular: Cardiovascular: Reports no additional cardiovascular complaints Respiratory: Respiratory: Reports as per HPI and Reports no additional respiratory complaints Gastrointestinal: Gastrointestinal: Reports as per HPI and Reports no additional gastrointestinal complaints Musculoskeletal: Musculoskeletal: Reports no additional musculoskeletal complaints Integumentary/Breasts: Skin/Breast: Reports system reviewed and no additional complaints, except as docu Neurologic: Reports no additional neurologic complaints and Reports Normal hearing present Psychiatric: Psychiatric: Reports no additional psychiatric complaints and Reports as per HPI Hematologic/Lymphatic: Hematologic/Lymphatic: Reports no additional hematologic/lymphatic complaints Allergic/Immunologic: Allergic/Immunologic: Reports no additional allergic/immunologic complaints [facility] Past Medical History Medical History (Updated 07/11/25 @ 23:44 by Latisha Mejia APRN) Depression with anxiety History of myocardial infarction Snoring Excessive daytime sleepiness Stroke with left hemiparesis Leg wound, left Overactive bladder Aneurysm of infrarenal abdominal aorta Dyslipidemia 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 Seizure x2 in 1997 Benign prostatic hyperplasia Esophageal stricture Gastroesophageal reflux Hypothyroidism Esophageal diverticulum, acquired Colon polyp Arthritis Diverticulosis Anemia Diverticulitis Myasthenia gravis patient denies Surgical History Surgical History Hx of heart artery stent History of arthroplasty of right knee History of Noemy fundoplication History of thyroidectomy Status post dilatation of esophageal stricture Family History Family History Mother , age 85 Acute myocardial infarction Hypertension Heart disease Father , age 70 Acute myocardial infarction Chronic obstructive pulmonary disease History of blood clots Hypertension Heart disease Sibling Acute myocardial infarction Hypertension Heart disease Other Heart disease Social History Social History (Updated 07/11/25 @ 23:14 by Latisha Mejia APRN) Social History: He resides with his . He has 3 biological children and his has 3 biologic children. Surrogate medical decision maker: Alon Gtz, spouse. Code status: Full code. Smoking packs per day: 1 Smoking cigarettes per day: 20.0 Years smoked: 4 Smoking pack-years: 4.00 Smoking status: Never smoker Alcohol intake: current Drinks per week: 1 Substance use: never Substance use type: does not use Do You Feel Safe in your Home?: Yes Lack of Transportation: No Lack of Food: Never True Current Housing: I Have Housing Concerned About Future Housing: No Difficulty Paying Gas/Electric Bills: No Difficulty Paying for Meds: No Currently Unemployed: No Education: Bachelor's Degree Difficulty w/ Childcare or Family Care: No Living arrangements: with family Additional living arrangements comments: Lives in [place] with his spouse. They have 3 children. 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 Spiritual care concerns: No Meds Home Medications and Allergies Home Medications ?Medication ?Instructions ?Recorded ?Confirmed ?Type furosemide 20 mg tablet (Lasix) 20 mg PO DAILY 08/13/23 07/11/25 History gabapentin 100 mg capsule 600 mg PO TID 08/13/23 07/11/25 History tizanidine 2 mg tablet 2 mg PO Q8H PRN Muscle Pain 08/13/23 07/11/25 History melatonin 10 mg tablet 10 mg PO HS PRN Sleep 10/10/23 07/11/25 History cholecalciferol (vitamin D3) 50 50 mcg PO DAILY 11/09/23 07/11/25 History mcg (2,000 unit) capsule aspirin 81 mg chewable tablet 81 mg PO DAILY 01/26/24 07/11/25 History cetirizine 10 mg tablet 10 mg PO DAILY 01/26/24 07/11/25 History rosuvastatin 40 mg tablet 40 mg PO DAILY 01/26/24 07/11/25 History pantoprazole 40 mg tablet,delayed 40 mg PO BID #60 tabs 02/02/24 07/11/25 Rx release ferrous sulfate 325 mg (65 mg 325 mg PO BID 01/06/25 07/11/25 History iron) tablet (FeroSul) mirabegron 25 mg tablet,extended 25 mg PO DAILY 01/06/25 07/11/25 History release 24 hr (Myrbetriq) tamsulosin 0.4 mg capsule 0.4 mg PO HS 01/06/25 07/11/25 History nitroglycerin 0.4 mg sublingual 0.4 mg sublingual Q5MIN PRN Chest 01/09/25 07/11/25 Rx tablet (Nitrostat) Pain #20 tabs paroxetine HCl 20 mg tablet 20 mg PO QAM 02/16/25 07/11/25 History levothyroxine 175 mcg capsule 100 mcg (0.5714 x 175 mcg) PO 02/24/25 07/11/25 Rx DAILY #30 caps acetaminophen 500 mg capsule 1,000 mg (2 x 500 mg) PO Q6H PRN 05/16/25 07/11/25 Rx pain #30 caps clopidogrel 75 mg tablet 75 mg PO DAILY #90 tabs 06/14/25 07/11/25 Rx metoprolol succinate 25 mg 12.5 mg (1/2 x 25 mg) PO DAILY #45 06/15/25 07/11/25 Rx tablet,extended release 24 hr tabs albuterol sulfate 90 mcg/actuation 1 inh inhalation Q8H PRN shortness 07/11/25 07/11/25 History aerosol inhaler of breath or wheezing Allergies Allergy/AdvReac Type Severity Reaction Status Date / Time No Known Allergies Allergy Verified 07/11/25 14:41 Vital Signs Vital Signs - 24 hr 07/11/25 14:37 07/11/25 15:08 07/11/25 16:34 Temperature 98.0 F Pulse Rate 34 L 70 87 Respiratory Rate 14 16 20 Blood Pressure 110/34 L 99/49 L 106/63 Pulse Oximetry 99 99 97 Oxygen Delivery Room Air Room Air 07/11/25 18:58 07/11/25 19:34 07/11/25 20:24 Temperature 97.4 F L 97.7 F Pulse Rate 65 91 68 Respiratory Rate 13 18 18 Blood Pressure 140/55 L 125/69 128/83 Pulse Oximetry 100 100 100 Oxygen Delivery 07/11/25 20:52 Temperature Pulse Rate 67 Respiratory Rate 18 Blood Pressure 122/71 Pulse Oximetry 99 Oxygen Delivery Exam Const: General: cooperative, healthy appearing, comfortable, no acute distress, well developed, awake, Physically active, average body habitus and well nourished Nutritional Appearance: average body habitus and well nourished Orientation/consciousness: oriented to person, oriented to place, oriented to time and patient oriented x3 Limitations: no limitations HENMT: Head: normal to inspection, No palpable skull fracture present, normocephalic, atraumatic and abrasion Ears: hearing grossly normal bilaterally and external ears normal Eyes: General: appearance normal, both eyes and all related structures Alignment and Position: alignment normal Neck: Neck: normal visual inspection and full ROM Chest: Chest palpation & inspection: normal inspection of the chest Resp: Effort & Inspection: normal respiratory effort Auscultation: clear to auscultation bilaterally Cardio: Palpation: normal PMI Rate: regular rate Rhythm: regular rhythm and other (Occasional skipped beat) Heart sounds: S1 normal heart sound present and S2 normal heart sound present Peripheral pulses: Peripheral pulses 2+ throughout Other: Occasional PVCs on the monitor GI: Inspection: normal to inspection Auscultation: normal bowel sounds Rectal Exam: deferred : General: Yes no CVA tenderness Back/Spine/Pelvis: Back: no CVA tenderness Skin: General skin exam: normal color Lesions: no lesions Rashes: no rashes Trauma: no lacerations or abrasions Wounds: no wounds Hair: normal Nails: normal Neuro: General: oriented to person, oriented to place, oriented to time and patient oriented x3 Cranial nerves: Yes Equal, round and reactive pupils present and Yes Normal hearing present Cognition (Neuro): normal cognition Speech: normal speech Extrem: General: normal to inspection Right upper extremity: normal to inspection and shoulder/upper arm Left upper extremity: shoulder/upper arm Right lower extremity: normal to inspection Left lower extremity: normal to inspection Other: The left leg is slightly weaker than the right chronically. The left hand is flaccid but he is able to move his left forearm and shoulder. This is chronic from his past stroke. Psych: Appearance: grossly normal Mental Status: mental status grossly normal Speech and movement: Normal speech and movement present Affect: normal affect Attitude: cooperative Thought process: Normal thought process present Thought content: Yes Normal thought content present Insight: Good insight present (Psych) Judgement: Good judgement present (Psych) H&P: Results Labs Labs: Short CBC 07/11/25 Range/Units 16:26 WBC 7.6 (4.5-10.0) K/mm3 Hgb 13.3 L (14.0-18.0) g/dL Hct 41.6 L (42.0-52.0) % Plt Count 185 (150-375) k/mm3 BMP 07/11/25 16:26 Sodium 139 Potassium 4.2 Chloride 103 Carbon Dioxide 31 H BUN 30 H Creatinine 1.52 H Glucose 77 Calcium 8.9 Cardiac Enzymes 07/11/25 07/11/25 Range/Units 16:26 20:24 Troponin I < 0.012 < 0.012 (0.000-0.034) ng/mL Liver Function 07/11/25 Range/Units 16:26 Total Bilirubin 0.5 (0.2-1.3) mg/dL AST 20 (17-59) U/L ALT 14 (6-50) U/L Alkaline Phosphatase 85 (38-126) U/L Albumin 3.7 (3.5-5.1) g/dL Urine 07/11/25 Range/Units 18:25 Urine Color Yellow (Yellow) Urine Appearance Turbid H (Clear) Urine pH 6.0 (5.0-9.0) Ur Specific [place] 1.030 (1.001-1.035) Urine Protein 1+ H (Negative) mg/dL Urine Glucose (UA) Negative (Negative) mg/dL Imaging CT scan - abdomen: Radiologist's impression: Impressions Chest X-Ray 07/11/25 15:41 Impression: No acute cardiopulmonary abnormality. Head CT 07/11/25 17:12 Impression: 1.No acute intracranial abnormality. Cervical Spine CT 07/11/25 17:13 Impression: No acute abnormality. Chest/Abdomen/Pelvis CT 07/11/25 18:36 IMPRESSION: 1. Small sliding hiatal hernia. 2. Bilateral inguinal hernias containing fat. 3. 3.5 cm fusiform infrarenal aortic aneurysm. Assessment and Plan Assessment and plan (1) Acute UTI: Code(s): N39.0 - Urinary tract infection, site not specified Status: Acute Assessment and Plan: -the patient has a history of Enterococcus species which is sensitive to vancomycin. -the patient was started on vancomycin. -blood and urine cultures are pending. -Rocephin was added as well. -the patient is afebrile and his white count is within normal limits. -the patient is on Myrbetriq which may be causing his UTIs. This is on hold at this time. (2) Hypothyroidism: Code(s): E03.9 - Hypothyroidism, unspecified Status: Acute Assessment and Plan: -his TSH level is subtherapeutic at 0.092. He is on high doses of levothyroxine. -he has had a history of thyroidectomy. -patient's thyroid levels may be off due to his infectious process. -repeat thyroid levels after he is discharged and free of infection (3) Dyslipidemia: Code(s): E78.5 - Hyperlipidemia, unspecified Status: Acute Assessment and Plan: -continue with rosuvastatin. Monitor liver enzymes (4) Stroke with left hemiparesis: Status: Acute Assessment and Plan: -left-sided residual -continue with aspirin and Plavix. -the patient has been in physical therapy. -continue muscle relaxer. -continue with gabapentin for the neuropathy -continue with rosuvastatin (5) BPH (benign prostatic hyperplasia): Code(s): N40.0 - Benign prostatic hyperplasia without lower urinary tract symptoms Status: Acute Assessment and Plan: -continue with Flomax (6) Ectopic beats: Code(s): I49.49 - Other premature depolarization Status: Acute Assessment and Plan: -the patient was placed on telemetry which is showing frequent PVCs. -the patient had a nurse monitoring on 3 weeks ago and is awaiting results. -the patient is being seen by Dr. Caban who placed the patient on metoprolol (7) AAA (abdominal aortic aneurysm): Code(s): I71.40 - Abdominal aortic aneurysm, without rupture, unspecified Status: Acute Assessment and Plan: -CT of the abdomen shows. 3.5 cm fusiform infrarenal aortic aneurysm. -the patient is aware of his aneurysm. Continue with follow-up visits with PCp (8) Depression with anxiety: Code(s): F41.8 - Other specified anxiety disorders Status: Acute Assessment and Plan: -continue with paroxetine (9) CAD (coronary artery disease): Code(s): I25.10 - Atherosclerotic heart disease of [place] coronary artery without angina pectoris Status: Acute Assessment and Plan: -he follows with Dr. Caban -continue with metoprolol -continue with rosuvastatin -he has a history of having a cardiac stent. Quality VTE Prophylaxis VTE prophylaxis: mechanical ordered
--- NOTE | 2025-07-11 21:57 | PC.NURSE ---
patient arrive from ED at 2111 to room 344 .
[2025-07-12] VITALS (11 sets, daily range): BP systolic 104–149; BP diastolic 60–79; PULSE 52–78; RESP 16–18; TEMP 36.1–36.8; O2SAT 94–100
[2025-07-12 05:45] LABS: Hematocrit 37.5 % (42.0-52.0); Hemoglobin 12.2 g/dL (14.0-18.0); Immature Granulocyte Percent A 0.2 % (0-0.5); Lymphocytes Absolute Auto 2.41 K/mm3 (0.9-3.2); Mean Corpuscular HGB Conc 32.5 g/dl (32-36); Mean Corpuscular Hemoglobin 33.0 pg (26-34); Mean Corpuscular Volume 101.4 fl (80-100); Nucleated Red Blood Cells Absolute Auto 0.000 K/mm3 (0.0-0.012); Nucleated Red Blood Cells Perc 0.0 % (0.0-0.2); Platelet Count Result 147 k/mm3 (150-375); Red Blood Count 3.70 M/mm3 (4.6-6.20); White Blood Count 6.5 K/mm3 (4.5-10.0)
[2025-07-12 06:14] LABS: Anion Gap 4 mmol/L (4-12); Blood Urea Nitrogen 23 mg/dL (9-20); Calcium 8.4 mg/dL (8.4-10.2); Carbon Dioxide 26 mmol/L (22-30); Chloride 108 mmol/L (98-107); Estimated CRCL calculation 47 ml/min; Estimated Glomerular Filt Rate > 60; Glucose 97 mg/dL (65-110); Potassium 3.7 mmol/L (3.4-5.0); Sodium 138 mmol/L (137-145)
[2025-07-12] MEDS: LEVOTHYROXINE SODIUM 100 MCG TABLET PO (06:30)
--- NOTE | 2025-07-12 06:52 | PM.IMPN ---
Progress Note: A&P Assessment and Plan (1) Fall: Code(s): W19.XXXA - Unspecified fall, initial encounter Status: Inactive Assessment and Plan: Patient endorses increased falls this past month Falls denies hitting his head, losing consciousness, and dizziness/lightheadedness prior to fall Related falls to weakness related to his left leg giving out, states needs a left knee replacement. Plans to rediscuss with his orthopedic surgeon. Uses a cane for ambulation -Head CT and chest XR unremarkable - PT/OT ordered, patient interested in placement for further therapy (2) Acute UTI: Code(s): N39.0 - Urinary tract infection, site not specified Status: Acute Assessment and Plan: - UA: turbid appearance, 1+ protein, trace ketones, 3+ blood, negative nitrates, 3+ leukocytes, >100 RBC, > 100 WBC, rare bacteria - UC obtained on 07/11: pending - blood culture obtained on 07/11: pending - previous micro reviewed 02/15/25: enterococcus species pansensitive - started on Vancomycin and Rocephin on 07/11 -the patient is on Myrbetriq which may be causing his UTIs. This is on hold at this time. Patient endorsing increased urgency and difficulty with voiding. Denies burning sensation, hematuria, and dysuria. (3) Hypothyroidism: Code(s): E03.9 - Hypothyroidism, unspecified Status: Acute Assessment and Plan: History of thyroidectomy -TSH level is subtherapeutic at 0.092, however T4 anad T3 WNL. - Continue levothyroxine 100 mcg - Patient's thyroid levels may be off due to his infectious process - Repeat thyroid levels after he is discharged and free of infection (4) Stroke with left hemiparesis: Status: Acute Assessment and Plan: History of stroke in Nov 2022 with left-sided residual -Continue rosuvastatin, aspirin and Plavix -the patient has been in physical therapy. -continue muscle relaxer. -continue with gabapentin for the neuropathy (5) Ectopic beats: Code(s): I49.49 - Other premature depolarization Status: Acute Assessment and Plan: -the patient placed on telemetry which is showing frequent PVCs in bigeminy -the patient had a quality assurance monitor final on 3 weeks ago and is awaiting results. -seen by Dr. Caban, placed on metoprolol -remains asymptomatic denying chest pain, palpitations, dizziness and lightheadedness (6) AAA (abdominal aortic aneurysm): Code(s): I71.40 - Abdominal aortic aneurysm, without rupture, unspecified Status: Acute Assessment and Plan: -CT of the abdomen shows. 3.5 cm fusiform infrarenal aortic aneurysm. -Patient is aware of his aneurysm. Continue with follow-up visits with PCP and cardiology (7) CAD (coronary artery disease): Code(s): I25.10 - Atherosclerotic heart disease of [place] coronary artery without angina pectoris Status: Acute Assessment and Plan: -Follows with Dr. Caban, hx of cardiac stent -Continue metoprolol 12.5 mg daily -continue with rosuvastatin (8) Depression with anxiety: Code(s): F41.8 - Other specified anxiety disorders Status: Acute Assessment and Plan: -continue with paroxetine (9) BPH (benign prostatic hyperplasia): Code(s): N40.0 - Benign prostatic hyperplasia without lower urinary tract symptoms Status: Acute Assessment and Plan: -continue with Flomax (10) Dyslipidemia: Code(s): E78.5 - Hyperlipidemia, unspecified Status: Acute Assessment and Plan: -continue with rosuvastatin. Monitor liver enzymes Time Spent With Patient Time with patient: 25 - 35 minutes Subjective Date/time seen: 07/12/25 06:52 Interval history: 79-year-old male with past medical history of CVA with chronic left sided deficits, infrarenal abdominal aortic aneurysm with penetrating ulcer in September 2023, hypertension, hyperlipidemia, hypothyroidism, esophageal stricture status post dilatation, gastroesophageal reflux disease, Noemy fundoplication, and arthritis presents to the hospital with complaints of generalized weakness. Patient is pleasant sitting up comfortably lying in bed. He endorses slight neck pain. Denies chest pain, shortness a breath, palpitations, nausea/vomiting, and abdominal pain. Patient denies any dysuria, hematuria, and burning sensation but does note increased urgency and difficultly voiding. Patient states that he has been falling more often this month and relates this to his left knee giving out. He knows that he needs a knee replacement implants to discuss this with his orthopedic surgeon again. Patient has been doing outpatient therapy but feels he may be more comfortable going somewhere for therapy. Review of Systems Review of Systems: All systems reviewed & are unremarkable except as noted in HPI and below Exam Narrative: AF HR 70 RR 18 SpO2 94 BP 149/72 General: male in no acute respiratory distress who is nontoxic appearing, sitting up in bed. HEENT: Normocephalic. Atraumatic. Extraocular movement intact. Sclera clear and anicteric. No facial asymmetry. Chest: Lungs are clear to auscultation bilaterally. No wheezes or crackles. CV: Heart was regular rate and rhythm. Abd: Abdomen was soft. Nontender. Nondistended. Positive bowel sounds. Ext: No clubbing, cyanosis. Trivial edema to BLE. DP pulses bilaterally. Neuro: Patient is alert and oriented x4. Speech is clear. Objective Data Vital Signs Vital Signs: Vital Signs - 24 hr 07/11/25 14:37 07/11/25 15:08 07/11/25 16:34 Temperature 98.0 F Pulse Rate 34 L 70 87 Respiratory Rate 14 16 20 Blood Pressure 110/34 L 99/49 L 106/63 Pulse Oximetry 99 99 97 Oxygen Delivery Room Air Room Air 07/11/25 18:58 07/11/25 19:34 07/11/25 20:24 Temperature 97.4 F L 97.7 F Pulse Rate 65 91 68 Respiratory Rate 13 18 18 Blood Pressure 140/55 L 125/69 128/83 Pulse Oximetry 100 100 100 Oxygen Delivery 07/11/25 20:52 07/11/25 22:00 07/12/25 04:00 Temperature 97.7 F Pulse Rate 67 60 65 Respiratory Rate 18 18 Blood Pressure 122/71 130/69 Pulse Oximetry 99 97 Oxygen Delivery 07/12/25 05:16 07/12/25 06:00 Temperature 97.9 F 98.2 F Pulse Rate 70 70 Respiratory Rate 18 18 Blood Pressure 104/79 149/72 H Pulse Oximetry 96 94 Oxygen Delivery Intake/Output Intake/Output: Intake & Output 07/09/25 07/10/25 07/11/25 07/12/25 23:59 23:59 23:59 23:59 Intake Total 1985.7 500 Balance 1985.7 500 Meds/Results Medications: Active Medications Generic Name Dose Route Start Last Admin Trade Name Freq PRN Reason Stop Dose Admin Acetaminophen 1,000 mg 07/11/25 23:38 Acetaminophen 500 Mg Tablet PO Q6H PRN Pain Albuterol 1 puff 07/11/25 23:38 Albuterol Sulfate (*Sp) Aerosol 1 Puff INHALATION Q8H PRN Shortness Of Breath Or Wheezing Aspirin 81 mg 07/12/25 08:00 Aspirin 81 Mg Chewable Tablet PO DAILY@0800 [facility] Clopidogrel Bisulfate 75 mg 07/12/25 09:00 Clopidogrel Bisulfate 75 Mg Tablet PO DAILY [facility] Ferrous Sulfate 325 mg 07/12/25 09:00 Ferrous Sulfate 325 Mg Tablet BY MOUTH BID [facility] Furosemide 20 mg 07/12/25 09:00 Furosemide 20 Mg Tablet PO DAILY [facility] Gabapentin 600 mg 07/12/25 09:00 Gabapentin 300 Mg Capsule PO TID [facility] Ceftriaxone Sodium 1 gm/ 50 mls @ 100 mls/hr 07/12/25 20:00 Sodium Chloride IVPB Q24H [facility] Vancomycin HCl 1,500 mg in 500 mls @ 250 mls/hr 07/13/25 08:00 Vancomycin 1,500 Mg/Ns 500 Ml IVPB Q36H [facility] Levothyroxine Sodium 100 mcg 07/12/25 06:30 07/12/25 06:30 Levothyroxine Sodium 100 Mcg Tablet PO 100 mcg DAILY@0630 [facility] Administration Loratadine 10 mg 07/12/25 09:00 Loratadine 10 Mg Tablet PO QAM [facility] Melatonin 10 mg 07/11/25 23:38 Melatonin 5 Mg Tablet PO HS PRN Sleep Metoprolol Succinate 12.5 mg 07/12/25 09:00 Metoprolol Succinate Ext Rel 12.5 Mg Tabcr PO DAILY [facility] Pantoprazole Sodium 40 mg 07/12/25 09:00 Pantoprazole 40 Mg Tablet PO BID [facility] Paroxetine HCl 20 mg 07/12/25 09:00 Paroxetine 20 Mg Tablet PO QAM [facility] Rosuvastatin Calcium 40 mg 07/12/25 09:00 Rosuvastatin 20 Mg Tablet PO DAILY [facility] Tamsulosin HCl 0.4 mg 07/12/25 00:20 07/12/25 00:43 Tamsulosin Hcl 0.4 Mg Capsule PO Not Given HS [facility] Tizanidine HCl 2 mg 07/11/25 23:38 Tizanidine Hcl 2 Mg Tablet PO Q8H PRN Muscle Pain Vitamin D 50 mcg 07/12/25 09:00 Cholecalciferol (Vitamin D3) 25 Mcg (1,000 Units) Tablet PO DAILY [facility] Radiology Results: ITS Impressions Chest X-Ray 07/11/25 15:41 Impression: No acute cardiopulmonary abnormality. Head CT 07/11/25 17:12 Impression: 1.No acute intracranial abnormality. Cervical Spine CT 07/11/25 17:13 Impression: No acute abnormality. Chest/Abdomen/Pelvis CT 07/11/25 18:36 IMPRESSION: 1. Small sliding hiatal hernia. 2. Bilateral inguinal hernias containing fat. 3. 3.5 cm fusiform infrarenal aortic aneurysm. Labs Labs: Laboratory Results - last 24 hr 07/11/25 07/11/25 07/11/25 15:54 16:15 16:26 WBC 7.6 RBC 4.09 L Hgb 13.3 L Hct 41.6 L MCV 101.7 H MCH 32.5 MCHC 32.0 RDW 14.6 H Plt Count 185 MPV 11.3 H Immature Gran % (Auto) 0.3 Neut % (Auto) 47.0 Lymph % (Auto) 33.9 [place] % (Auto) 10.3 H Eos % (Auto) 7.7 H Baso % (Auto) 0.8 Lymph # (Auto) 2.56 [place] # (Auto) 0.8 H Eos # (Auto) 0.6 H Baso # (Auto) 0.1 Abs Immat Gran (auto) 0.02 Absolute Neuts (auto) 3.6 Absolute Nucleated RBC 0.000 Nucleated RBC % 0.0 PT 13.5 INR 1.0 APTT 31.8 Sodium 139 Potassium 4.2 Chloride 103 Carbon Dioxide 31 H Anion Gap 5 BUN 30 H Creatinine 1.52 H Estim Creat Clear Calc 36 Estimated GFR 44 L Glucose 77 POC Capillary Glucose 120 H Lactic Acid 1.4 Calcium 8.9 Phosphorus 3.0 Magnesium 2.1 Total Bilirubin 0.5 AST 20 ALT 14 Alkaline Phosphatase 85 Troponin I < 0.012 NT-Pro-B Natriuret Pep 878 H Total Protein 7.2 Albumin 3.7 Lipase 57 TSH (Reflex) 0.092 L Free T4 2.16 Total T3 0.93 Urine Color Urine Appearance Urine pH Ur Specific [place] Urine Protein Urine Glucose (UA) Urine Ketones Ur Blood (Man) Urine Nitrate Urine Bilirubin Urine Urobilinogen Leukocyte Esterase Rfl Urine RBC Urine WBC Ur Squamous Epith Cells Urine Bacteria Urine Casts Monoscreen Negative Influenza A (RT-PCR) Negative Influenza B (RT-PCR) Negative RSV (RT-PCR) Negative SARS-CoV-2 RNA (RT-PCR) Negative 07/11/25 07/11/25 07/12/25 18:25 20:24 05:25 WBC 6.5 RBC 3.70 L Hgb 12.2 L Hct 37.5 L MCV 101.4 H MCH 33.0 MCHC 32.5 RDW 14.5 Plt Count 147 L MPV 11.3 H Immature Gran % (Auto) 0.2 Neut % (Auto) 41.3 L Lymph % (Auto) 37.1 [place] % (Auto) 11.7 H Eos % (Auto) 8.6 H Baso % (Auto) 1.1 Lymph # (Auto) 2.41 [place] # (Auto) 0.8 H Eos # (Auto) 0.6 H Baso # (Auto) 0.1 Abs Immat Gran (auto) 0.01 Absolute Neuts (auto) 2.7 Absolute Nucleated RBC 0.000 Nucleated RBC % 0.0 PT INR APTT Sodium 138 Potassium 3.7 Chloride 108 H Carbon Dioxide 26 Anion Gap 4 BUN 23 H Creatinine 1.14 Estim Creat Clear Calc 47 Estimated GFR > 60 Glucose 97 POC Capillary Glucose Lactic Acid Calcium 8.4 Phosphorus Magnesium Total Bilirubin AST ALT Alkaline Phosphatase Troponin I < 0.012 NT-Pro-B Natriuret Pep Total Protein Albumin Lipase TSH (Reflex) Free T4 Total T3 Urine Color Yellow Urine Appearance Turbid H Urine pH 6.0 Ur Specific [place] 1.030 Urine Protein 1+ H Urine Glucose (UA) Negative Urine Ketones Trace H Ur Blood (Man) 3+ H Urine Nitrate Negative Urine Bilirubin Negative Urine Urobilinogen 1.0 Leukocyte Esterase Rfl 3+ H Urine RBC >100 H Urine WBC >100 H Ur Squamous Epith Cells None seen Urine Bacteria Rare Urine Casts 0-2 Monoscreen Influenza A (RT-PCR) Influenza B (RT-PCR) RSV (RT-PCR) SARS-CoV-2 RNA (RT-PCR) Quality VTE Prophylaxis VTE prophylaxis: mechanical ordered
[2025-07-12] MEDS: METOPROLOL SUCCINATE EXT REL 12.5 MG TABCR PO (08:18)
[2025-07-12] MEDS: PANTOPRAZOLE 40 MG TABLET PO ×2 (08:19→17:23)
[2025-07-12] MEDS: ASPIRIN 81 MG CHEWABLE TABLET PO (08:19)
[2025-07-12] MEDS: CHOLECALCIFEROL (VITAMIN D3) 25 MCG (1,000 UNITS) TABLET 50 MCG PO (08:19)
[2025-07-12] MEDS: FERROUS SULFATE 325 MG TABLET BY MOUTH ×2 (08:19→17:23)
[2025-07-12] MEDS: FUROSEMIDE 20 MG TABLET PO (08:19)
[2025-07-12] MEDS: ROSUVASTATIN 20 MG TABLET 40 MG PO (08:19)
[2025-07-12] MEDS: GABAPENTIN 300 MG CAPSULE 600 MG PO ×3 (08:19→17:22)
[2025-07-12] MEDS: CLOPIDOGREL BISULFATE 75 MG TABLET PO (08:19)
[2025-07-12] MEDS: LORATADINE 10 MG TABLET PO (08:19)
[2025-07-12] MEDS: AMPICILLIN SODIUM/SULBACTAM 3 GM in SODIUM CHLORIDE 0.9% IV 100 ML 200 ML IVPB (17:22)
[2025-07-12] MEDS: TAMSULOSIN HCL 0.4 MG CAPSULE PO (20:25)
[2025-07-12] MEDS: MELATONIN 5 MG TABLET 10 MG PO (20:25)
[2025-07-13] VITALS (10 sets, daily range): BP systolic 95–122; BP diastolic 51–69; PULSE 58–80; RESP 18; TEMP 36.4–36.8; O2SAT 98–100
[2025-07-13] MEDS: AMPICILLIN SODIUM/SULBACTAM 3 GM in SODIUM CHLORIDE 0.9% IV 100 ML 200 ML IVPB ×4 (01:17→17:10)
[2025-07-13] MEDS: LEVOTHYROXINE SODIUM 100 MCG TABLET PO (05:14)
[2025-07-13 05:26] LABS: Hematocrit 38.1 % (42.0-52.0); Hemoglobin 12.2 g/dL (14.0-18.0); Immature Platelet Fraction Pct 3.8 % (0.9-11.2); Mean Corpuscular HGB Conc 32.0 g/dl (32-36); Mean Corpuscular Hemoglobin 32.7 pg (26-34); Mean Corpuscular Volume 102.1 fl (80-100); Platelet Count Result 132 k/mm3 (150-375); Red Blood Count 3.73 M/mm3 (4.6-6.20); White Blood Count 11.6 K/mm3 (4.5-10.0)
[2025-07-13 05:40] LABS: Alanine Aminotransferase 11 U/L (6-50); Albumin Level 3.1 g/dL (3.5-5.1); Alkaline Phosphatase 87 U/L (38-126); Anion Gap 3 mmol/L (4-12); Aspartate Amino Transferase 18 U/L (17-59); Bilirubin,Total 0.7 mg/dL (0.2-1.3); Blood Urea Nitrogen 18 mg/dL (9-20); Calcium 8.3 mg/dL (8.4-10.2); Carbon Dioxide 26 mmol/L (22-30); Chloride 109 mmol/L (98-107); Estimated CRCL calculation 49 ml/min; Estimated Glomerular Filt Rate > 60; Glucose 108 mg/dL (65-110); Potassium 3.9 mmol/L (3.4-5.0); Sodium 138 mmol/L (137-145); Total Protein 6.0 g/dL (6.3-8.2)
--- NOTE | 2025-07-13 08:01 | P.PNIM_ITS ---
Progress Note: A&P Assessment and Plan (1) Fall: Code(s): W19.XXXA - Unspecified fall, initial encounter Status: Inactive Assessment and Plan: Patient endorses increased falls this past month Falls denies hitting his head, losing consciousness, and dizziness/lightheadedness prior to fall Related falls to weakness related to his left leg giving out, states needs a left knee replacement. Plans to rediscuss with his orthopedic surgeon. Uses a cane for ambulation - Head CT and chest XR unremarkable - PT/OT ordered, patient interested in placement for further therapy Awaiting recommendations (2) Acute UTI: Code(s): N39.0 - Urinary tract infection, site not specified Status: Acute Assessment and Plan: - UA: turbid appearance, 1+ protein, trace ketones, 3+ blood, negative nitrates, 3+ leukocytes, >100 RBC, > 100 WBC, rare bacteria - UC obtained on 07/11: pending - blood culture obtained on 07/11: pending - previous micro reviewed 02/15/25: enterococcus species pansensitive - started on Vancomycin and Rocephin on 07/11 -the patient is on Myrbetriq which may be causing his UTIs. This is on hold at this time. Patient continues to endorse increased urgency and difficulty with voiding. Denies burning sensation, hematuria, and dysuria. Urine culture still pending. Adjust antibiotics per sensitivities. (3) Hypothyroidism: Code(s): E03.9 - Hypothyroidism, unspecified Status: Acute Assessment and Plan: History of thyroidectomy -TSH level is subtherapeutic at 0.092, however T4 anad T3 WNL. - Continue levothyroxine 100 mcg - Patient's thyroid levels may be off due to his infectious process - Repeat thyroid levels after he is discharged and free of infection per PCP (4) Stroke with left hemiparesis: Status: Acute Assessment and Plan: History of stroke in Nov 2022 with left-sided residual -Continue rosuvastatin, aspirin and Plavix -the patient has been in physical therapy. -continue muscle relaxer. -continue with gabapentin for the neuropathy (5) Ectopic beats: Code(s): I49.49 - Other premature depolarization Status: Acute Assessment and Plan: -the patient placed on telemetry which is showing frequent PVCs in bigeminy -the patient had a monitoring specialist on 3 weeks ago and is awaiting results. -seen by Dr. Caban, placed on metoprolol - asymptomatic denying chest pain, palpitations, dizziness and lightheadedness (6) AAA (abdominal aortic aneurysm): Code(s): I71.40 - Abdominal aortic aneurysm, without rupture, unspecified Status: Acute Assessment and Plan: -CT of the abdomen shows. 3.5 cm fusiform infrarenal aortic aneurysm. -Patient is aware of his aneurysm. Continue with follow-up visits with PCP and cardiology (7) CAD (coronary artery disease): Code(s): I25.10 - Atherosclerotic heart disease of [place] coronary artery without angina pectoris Status: Acute Assessment and Plan: -Follows with Dr. Caban, hx of cardiac stent -Continue metoprolol 12.5 mg daily -continue with rosuvastatin (8) Depression with anxiety: Code(s): F41.8 - Other specified anxiety disorders Status: Acute Assessment and Plan: -continue with paroxetine (9) BPH (benign prostatic hyperplasia): Code(s): N40.0 - Benign prostatic hyperplasia without lower urinary tract symptoms Status: Acute Assessment and Plan: -continue with Flomax (10) Dyslipidemia: Code(s): E78.5 - Hyperlipidemia, unspecified Status: Acute Assessment and Plan: -continue with rosuvastatin. Monitor liver enzymes Time Spent With Patient Time with patient: 25 - 35 minutes Subjective Date/time seen: 07/13/25 08:01 Interval history: 79-year-old male with past medical history of CVA with chronic left sided deficits, infrarenal abdominal aortic aneurysm with penetrating ulcer in September 2023, hypertension, hyperlipidemia, hypothyroidism, esophageal stricture status post dilatation, gastroesophageal reflux disease, Noemy fundoplication, and arthritis presents to the hospital with complaints of generalized weakness. Patient is pleasant lying comfortably in bed. He continues to endorse increased urgency/frequency and difficulty with voiding. He denies any associated abdominal pain. Patient has no other complaints denying chest pain, palpitations, shortness of breath and nausea/vomiting. Review of Systems Review of Systems: All systems reviewed & are unremarkable except as noted in HPI and below Exam Narrative: AF HR 62 RR 18 Spo2 98 BP 122/65 General: male in no acute respiratory distress who is nontoxic appearing, lying in bed. HEENT: Normocephalic. Atraumatic. Extraocular movement intact. Sclera clear and anicteric. No facial asymmetry. Chest: Lungs are clear to auscultation bilaterally. No wheezes or crackles. CV: Heart was regular rate and rhythm. Abd: Abdomen was soft. Nontender. Nondistended. Positive bowel sounds. Ext: No clubbing, cyanosis. Trivial edema to BLE. DP pulses bilaterally. Neuro: Patient is alert. Speech is clear. Objective Data Vital Signs Vital Signs: Vital Signs - 24 hr 07/12/25 08:05 07/12/25 08:18 07/12/25 12:06 Temperature Pulse Rate 64 58 L 58 L Respiratory Rate Blood Pressure Pulse Oximetry 07/12/25 15:29 07/12/25 16:05 07/12/25 20:00 Temperature 96.9 F L Pulse Rate 53 L 75 78 Respiratory Rate 18 Blood Pressure 111/60 Pulse Oximetry 97 07/12/25 20:42 07/12/25 22:31 07/13/25 00:00 Temperature 97.6 F 97.6 F Pulse Rate 52 L 52 L 61 Respiratory Rate 16 16 Blood Pressure 121/67 121/67 Pulse Oximetry 100 100 07/13/25 04:00 07/13/25 04:52 Temperature 97.8 F Pulse Rate 63 62 Respiratory Rate 18 Blood Pressure 122/65 Pulse Oximetry 98 Intake/Output Intake/Output: Intake & Output 07/10/25 07/11/25 07/12/25 07/13/25 23:59 23:59 23:59 23:59 Intake Total 1985.7 1767 490 Output Total 400 300 Balance 1985.7 1367 190 Meds/Results Medications: Active Medications Generic Name Dose Route Start Last Admin Trade Name Freq PRN Reason Stop Dose Admin Acetaminophen 1,000 mg 07/11/25 23:38 Acetaminophen 500 Mg Tablet PO Q6H PRN Pain Albuterol 1 puff 07/11/25 23:38 Albuterol Sulfate (*Sp) Aerosol 1 Puff INHALATION Q8H PRN Shortness Of Breath Or Wheezing Aspirin 81 mg 07/12/25 08:00 07/12/25 08:19 Aspirin 81 Mg Chewable Tablet PO 81 mg DAILY@0800 AIMEE Administration Clopidogrel Bisulfate 75 mg 07/12/25 09:00 07/12/25 08:19 Clopidogrel Bisulfate 75 Mg Tablet PO 75 mg DAILY AIMEE Administration Ferrous Sulfate 325 mg 07/12/25 09:00 07/12/25 17:23 Ferrous Sulfate 325 Mg Tablet BY MOUTH 325 mg BID AIMEE Administration Furosemide 20 mg 07/12/25 09:00 07/12/25 08:19 Furosemide 20 Mg Tablet PO 20 mg DAILY AIMEE Administration Gabapentin 600 mg 07/12/25 09:00 07/12/25 17:22 Gabapentin 300 Mg Capsule PO 600 mg TID AIMEE Administration Ampicillin Sodium/Sulbactam 100 mls @ 200 mls/hr 07/12/25 18:00 07/13/25 05:13 Sodium 3 gm/ Sodium Chloride IVPB 200 mls/hr Q6H AIMEE Administration Levothyroxine Sodium 100 mcg 07/12/25 06:30 07/13/25 05:14 Levothyroxine Sodium 100 Mcg Tablet PO 100 mcg DAILY@0630 AIMEE Administration Loratadine 10 mg 07/12/25 09:00 07/12/25 08:19 Loratadine 10 Mg Tablet PO 10 mg QAM AIMEE Administration Melatonin 10 mg 07/11/25 23:38 07/12/25 20:25 Melatonin 5 Mg Tablet PO 10 mg HS PRN Administration Sleep Metoprolol Succinate 12.5 mg 07/12/25 09:00 07/12/25 08:18 Metoprolol Succinate Ext Rel 12.5 Mg Tabcr PO 12.5 mg DAILY AIMEE Administration Pantoprazole Sodium 40 mg 07/12/25 09:00 07/12/25 17:23 Pantoprazole 40 Mg Tablet PO 40 mg BID AIMEE Administration Paroxetine HCl 20 mg 07/12/25 09:00 07/12/25 09:01 Paroxetine 20 Mg Tablet PO 20 mg QAM AIMEE Administration Rosuvastatin Calcium 40 mg 07/12/25 09:00 07/12/25 08:19 Rosuvastatin 20 Mg Tablet PO 40 mg DAILY AIMEE Administration Tamsulosin HCl 0.4 mg 07/12/25 00:20 07/12/25 20:25 Tamsulosin Hcl 0.4 Mg Capsule PO 0.4 mg HS AIMEE Administration Tizanidine HCl 2 mg 07/11/25 23:38 Tizanidine Hcl 2 Mg Tablet PO Q8H PRN Muscle Pain Vitamin D 50 mcg 07/12/25 09:00 07/12/25 08:19 Cholecalciferol (Vitamin D3) 25 Mcg (1,000 Units) Tablet PO 50 mcg DAILY AIMEE Administration Radiology Results: ITS Impressions Chest X-Ray 07/11/25 15:41 Impression: No acute cardiopulmonary abnormality. Head CT 07/11/25 17:12 Impression: 1.No acute intracranial abnormality. Cervical Spine CT 07/11/25 17:13 Impression: No acute abnormality. Chest/Abdomen/Pelvis CT 07/11/25 18:36 IMPRESSION: 1. Small sliding hiatal hernia. 2. Bilateral inguinal hernias containing fat. 3. 3.5 cm fusiform infrarenal aortic aneurysm. Labs Labs: Laboratory Results - last 24 hr 07/13/25 05:20 WBC 11.6 H RBC 3.73 L Hgb 12.2 L Hct 38.1 L MCV 102.1 H MCH 32.7 MCHC 32.0 RDW 14.6 H Plt Count 132 L MPV 11.2 H % Immature Plt Fraction 3.8 Sodium 138 Potassium 3.9 Chloride 109 H Carbon Dioxide 26 Anion Gap 3 L BUN 18 Creatinine 1.11 Estim Creat Clear Calc 49 Estimated GFR > 60 Glucose 108 Calcium 8.3 L Total Bilirubin 0.7 AST 18 ALT 11 Alkaline Phosphatase 87 Total Protein 6.0 L Albumin 3.1 L Quality VTE Prophylaxis VTE prophylaxis: mechanical ordered
[2025-07-13] MEDS: CLOPIDOGREL BISULFATE 75 MG TABLET PO (08:14)
[2025-07-13] MEDS: PANTOPRAZOLE 40 MG TABLET PO ×2 (08:14→17:10)
[2025-07-13] MEDS: ASPIRIN 81 MG CHEWABLE TABLET PO (08:14)
[2025-07-13] MEDS: GABAPENTIN 300 MG CAPSULE 600 MG PO ×3 (08:14→17:10)
[2025-07-13] MEDS: FUROSEMIDE 20 MG TABLET PO (08:14)
[2025-07-13] MEDS: ROSUVASTATIN 20 MG TABLET 40 MG PO (08:14)
[2025-07-13] MEDS: LORATADINE 10 MG TABLET PO (08:14)
[2025-07-13] MEDS: METOPROLOL SUCCINATE EXT REL 12.5 MG TABCR PO (08:14)
[2025-07-13] MEDS: FERROUS SULFATE 325 MG TABLET BY MOUTH ×2 (08:14→17:10)
[2025-07-13] MEDS: CHOLECALCIFEROL (VITAMIN D3) 25 MCG (1,000 UNITS) TABLET 50 MCG PO (08:14)
[2025-07-13] MEDS: ACETAMINOPHEN 500 MG TABLET 1000 MG PO (08:15)
[2025-07-13] MEDS: TAMSULOSIN HCL 0.4 MG CAPSULE PO (21:11)
[2025-07-13] MEDS: MELATONIN 5 MG TABLET 10 MG PO (21:11)
[2025-07-14] VITALS (12 sets, daily range): BP systolic 101–121; BP diastolic 53–80; PULSE 57–101; RESP 18–20; TEMP 36.4–36.6; O2SAT 91–100
[2025-07-14] MEDS: AMPICILLIN SODIUM/SULBACTAM 3 GM in SODIUM CHLORIDE 0.9% IV 100 ML 200 ML IVPB ×5 (00:55→23:47)
[2025-07-14 05:36] LABS: Hematocrit 34.8 % (42.0-52.0); Hemoglobin 11.4 g/dL (14.0-18.0); Immature Platelet Fraction Pct 3.5 % (0.9-11.2); Mean Corpuscular HGB Conc 32.8 g/dl (32-36); Mean Corpuscular Hemoglobin 32.9 pg (26-34); Mean Corpuscular Volume 100.6 fl (80-100); Platelet Count Result 121 k/mm3 (150-375); Red Blood Count 3.46 M/mm3 (4.6-6.20); White Blood Count 7.6 K/mm3 (4.5-10.0)
[2025-07-14 06:10] LABS: Alanine Aminotransferase 9 U/L (6-50); Albumin Level 2.7 g/dL (3.5-5.1); Alkaline Phosphatase 80 U/L (38-126); Anion Gap 2 mmol/L (4-12); Aspartate Amino Transferase 15 U/L (17-59); Bilirubin,Total 0.7 mg/dL (0.2-1.3); Blood Urea Nitrogen 15 mg/dL (9-20); Calcium 8.0 mg/dL (8.4-10.2); Carbon Dioxide 26 mmol/L (22-30); Chloride 108 mmol/L (98-107); Estimated CRCL calculation 53 ml/min; Estimated Glomerular Filt Rate > 60; Glucose 103 mg/dL (65-110); Potassium 3.7 mmol/L (3.4-5.0); Sodium 136 mmol/L (137-145); Total Protein 5.5 g/dL (6.3-8.2)
[2025-07-14] MEDS: LEVOTHYROXINE SODIUM 100 MCG TABLET PO (06:36)
--- NOTE | 2025-07-14 08:32 | PM.IMPN ---
Progress Note: A&P Assessment and Plan (1) Fall: Code(s): W19.XXXA - Unspecified fall, initial encounter Status: Inactive Assessment and Plan: Patient endorses increased falls this past month Falls denies hitting his head, losing consciousness, and dizziness/lightheadedness prior to fall Related falls to weakness related to his left leg giving out, states needs a left knee replacement. Plans to rediscuss with his orthopedic surgeon. Uses a cane for ambulation - Head CT and chest XR unremarkable - PT/OT ordered, patient interested in placement for further therapy Awaiting recommendations Patient continues to want placement and PT OT recommending SNF. Discussed with care coordination they are aware that patient does in fact want placement. (2) Acute UTI: Code(s): N39.0 - Urinary tract infection, site not specified Status: Acute Assessment and Plan: - UA: turbid appearance, 1+ protein, trace ketones, 3+ blood, negative nitrates, 3+ leukocytes, >100 RBC, > 100 WBC, rare bacteria - UC obtained on 07/11: growth observed - blood culture obtained on 07/11: NGTD - previous micro reviewed 02/15/25: enterococcus species pansensitive - started on Vancomycin and Rocephin on 07/11 -the patient is on Myrbetriq which may be causing his UTIs. This is on hold at this time. Patient again continues to endorse increased urgency and difficulty with voiding. Denies burning sensation, hematuria, and dysuria. (3) Hypothyroidism: Code(s): E03.9 - Hypothyroidism, unspecified Status: Acute Assessment and Plan: History of thyroidectomy -TSH level is subtherapeutic at 0.092, however T4 anad T3 WNL. - Continue levothyroxine 100 mcg - Patient's thyroid levels may be off due to his infectious process - Repeat thyroid levels after he is discharged and free of infection per PCP (4) Ectopic beats: Code(s): I49.49 - Other premature depolarization Status: Acute Assessment and Plan: -the patient placed on telemetry which is showing frequent PVCs in bigeminy -the patient had a quality assurance monitor body on 3 weeks ago Interpreted on 07/11: frequent PVC with occasional ventricular couplets and rare triplets, see report for further information -seen by Dr. Caban, placed on metoprolol. Patient to have a follow up this month. - remains asymptomatic denying chest pain, palpitations, dizziness and lightheadedness (5) Stroke with left hemiparesis: Status: Acute Assessment and Plan: History of stroke in Nov 2022 with left upper extremity residual -Continue rosuvastatin, aspirin and Plavix -the patient has been in physical therapy. -continue muscle relaxer. -continue with gabapentin for the neuropathy (6) AAA (abdominal aortic aneurysm): Code(s): I71.40 - Abdominal aortic aneurysm, without rupture, unspecified Status: Acute Assessment and Plan: -CT of the abdomen shows. 3.5 cm fusiform infrarenal aortic aneurysm. -Patient is aware of his aneurysm. Continue with follow-up visits with PCP and cardiology (7) CAD (coronary artery disease): Code(s): I25.10 - Atherosclerotic heart disease of [place] coronary artery without angina pectoris Status: Acute Assessment and Plan: -Follows with Dr. Caban, hx of cardiac stent -Continue metoprolol 12.5 mg daily -continue with rosuvastatin (8) Depression with anxiety: Code(s): F41.8 - Other specified anxiety disorders Status: Acute Assessment and Plan: -continue with paroxetine (9) BPH (benign prostatic hyperplasia): Code(s): N40.0 - Benign prostatic hyperplasia without lower urinary tract symptoms Status: Acute Assessment and Plan: -continue with Flomax (10) Dyslipidemia: Code(s): E78.5 - Hyperlipidemia, unspecified Status: Acute Assessment and Plan: -continue with rosuvastatin. Monitor liver enzymes Time Spent With Patient Time with patient: 25 - 35 minutes Subjective Date/time seen: 07/14/25 08:32 Interval history: 79-year-old male with past medical history of CVA with chronic left sided deficits, infrarenal abdominal aortic aneurysm with penetrating ulcer in September 2023, hypertension, hyperlipidemia, hypothyroidism, esophageal stricture status post dilatation, gastroesophageal reflux disease, Noemy fundoplication, and arthritis presents to the hospital with complaints of generalized weakness. Patient pleasant lying comfortably in bed with son at bedside. Patient continues to endorse increased urgency and difficulty with voiding. Denies burning sensation, hematuria, and dysuria. He has no other complaints denying chest pain, palpitations, shortness of breath, nausea/vomiting, abdominal pain and dizziness/lightheadedness. Patient continues to want placement at time of discharge for further therapy. Discussed with care coordination and they are aware and working on placement. All questions and concerns were answered during assessment. Review of Systems Review of Systems: All systems reviewed & are unremarkable except as noted in HPI and below Exam Narrative: AF HR 58 RR 18 SpO2 99 BP 112/69 General: male in no acute respiratory distress who is nontoxic appearing, lying in bed. HEENT: Normocephalic. Atraumatic. Extraocular movement intact. Sclera clear and anicteric. No facial asymmetry. Chest: Lungs are clear to auscultation bilaterally. No wheezes or crackles. CV: Heart was regular rate and rhythm. Abd: Abdomen was soft. Nontender. Nondistended. Positive bowel sounds. Ext: No clubbing, cyanosis. Chronic left sided deficits to the upper extremity, no wrist flexion/extension. BLE strength symmetrical. DP pulses bilaterally. Neuro: Patient is alert. Speech is clear. Objective Data Vital Signs Vital Signs: Vital Signs - 24 hr 07/13/25 12:06 07/13/25 13:30 07/13/25 13:46 Temperature Pulse Rate 58 L Respiratory Rate Blood Pressure Pulse Oximetry Oxygen Delivery Room Air Room Air 07/13/25 14:00 07/13/25 16:05 07/13/25 20:00 Temperature 98.2 F Pulse Rate 60 71 80 Respiratory Rate 18 Blood Pressure 95/51 L Pulse Oximetry 100 Oxygen Delivery 07/13/25 22:00 07/14/25 00:00 07/14/25 04:00 Temperature 97.5 F L Pulse Rate 58 L 80 65 Respiratory Rate 18 Blood Pressure 116/69 Pulse Oximetry 99 Oxygen Delivery 07/14/25 06:00 Temperature 97.9 F Pulse Rate 58 L Respiratory Rate 18 Blood Pressure 112/69 Pulse Oximetry 99 Oxygen Delivery Intake/Output Intake/Output: Intake & Output 07/11/25 07/12/25 07/13/25 07/14/25 23:59 23:59 23:59 23:59 Intake Total 1985.7 1767 2710 800 Output Total 400 1000 1300 Balance 1985.7 2287 1710 -500 Meds/Results Medications: Active Medications Generic Name Dose Route Start Last Admin Trade Name Freq PRN Reason Stop Dose Admin Acetaminophen 1,000 mg 07/11/25 23:38 07/13/25 08:15 Acetaminophen 500 Mg Tablet PO 1,000 mg Q6H PRN Administration Pain Albuterol 1 puff 07/11/25 23:38 Albuterol Sulfate (*Sp) Aerosol 1 Puff INHALATION Q8H PRN Shortness Of Breath Or Wheezing Aspirin 81 mg 07/12/25 08:00 07/13/25 08:14 Aspirin 81 Mg Chewable Tablet PO 81 mg DAILY@0800 AIMEE Administration Clopidogrel Bisulfate 75 mg 07/12/25 09:00 07/13/25 08:14 Clopidogrel Bisulfate 75 Mg Tablet PO 75 mg DAILY AIMEE Administration Ferrous Sulfate 325 mg 07/12/25 09:00 07/13/25 17:10 Ferrous Sulfate 325 Mg Tablet BY MOUTH 325 mg BID AIMEE Administration Furosemide 20 mg 07/12/25 09:00 07/13/25 08:14 Furosemide 20 Mg Tablet PO 20 mg DAILY AIMEE Administration Gabapentin 600 mg 07/12/25 09:00 07/13/25 17:10 Gabapentin 300 Mg Capsule PO 600 mg TID AIMEE Administration Ampicillin Sodium/Sulbactam 100 mls @ 200 mls/hr 07/12/25 18:00 07/14/25 06:36 Sodium 3 gm/ Sodium Chloride IVPB 200 mls/hr Q6H AIMEE Administration Levothyroxine Sodium 100 mcg 07/12/25 06:30 07/14/25 06:36 Levothyroxine Sodium 100 Mcg Tablet PO 100 mcg DAILY@0630 AIMEE Administration Loratadine 10 mg 07/12/25 09:00 07/13/25 08:14 Loratadine 10 Mg Tablet PO 10 mg QAM AIMEE Administration Melatonin 10 mg 07/11/25 23:38 07/13/25 21:11 Melatonin 5 Mg Tablet PO 10 mg HS PRN Administration Sleep Metoprolol Succinate 12.5 mg 07/12/25 09:00 07/13/25 08:14 Metoprolol Succinate Ext Rel 12.5 Mg Tabcr PO 12.5 mg DAILY AIMEE Administration Pantoprazole Sodium 40 mg 07/12/25 09:00 07/13/25 17:10 Pantoprazole 40 Mg Tablet PO 40 mg BID AIMEE Administration Paroxetine HCl 20 mg 07/12/25 09:00 07/13/25 08:14 Paroxetine 20 Mg Tablet PO 20 mg QAM AIMEE Administration Rosuvastatin Calcium 40 mg 07/12/25 09:00 07/13/25 08:14 Rosuvastatin 20 Mg Tablet PO 40 mg DAILY AIMEE Administration Tamsulosin HCl 0.4 mg 07/12/25 00:20 07/13/25 21:11 Tamsulosin Hcl 0.4 Mg Capsule PO 0.4 mg HS AIMEE Administration Tizanidine HCl 2 mg 07/11/25 23:38 Tizanidine Hcl 2 Mg Tablet PO Q8H PRN Muscle Pain Vitamin D 50 mcg 07/12/25 09:00 07/13/25 08:14 Cholecalciferol (Vitamin D3) 25 Mcg (1,000 Units) Tablet PO 50 mcg DAILY AIMEE Administration Radiology Results: ITS Impressions Chest X-Ray 07/11/25 15:41 Impression: No acute cardiopulmonary abnormality. Head CT 07/11/25 17:12 Impression: 1.No acute intracranial abnormality. Cervical Spine CT 07/11/25 17:13 Impression: No acute abnormality. Chest/Abdomen/Pelvis CT 07/11/25 18:36 IMPRESSION: 1. Small sliding hiatal hernia. 2. Bilateral inguinal hernias containing fat. 3. 3.5 cm fusiform infrarenal aortic aneurysm. Labs Labs: Laboratory Results - last 24 hr 07/14/25 05:15 WBC 7.6 RBC 3.46 L Hgb 11.4 L Hct 34.8 L MCV 100.6 H MCH 32.9 MCHC 32.8 RDW 14.6 H Plt Count 121 L MPV 11.1 H % Immature Plt Fraction 3.5 Sodium 136 L Potassium 3.7 Chloride 108 H Carbon Dioxide 26 Anion Gap 2 L BUN 15 Creatinine 1.02 Estim Creat Clear Calc 53 Estimated GFR > 60 Glucose 103 Calcium 8.0 L Total Bilirubin 0.7 AST 15 L ALT 9 Alkaline Phosphatase 80 Total Protein 5.5 L Albumin 2.7 L Quality VTE Prophylaxis VTE prophylaxis: mechanical ordered
[2025-07-14] MEDS: ROSUVASTATIN 20 MG TABLET 40 MG PO (09:42)
[2025-07-14] MEDS: GABAPENTIN 300 MG CAPSULE 600 MG PO ×3 (09:42→17:46)
[2025-07-14] MEDS: FERROUS SULFATE 325 MG TABLET BY MOUTH ×2 (09:43→17:46)
[2025-07-14] MEDS: METOPROLOL SUCCINATE EXT REL 12.5 MG TABCR PO (09:43)
[2025-07-14] MEDS: LORATADINE 10 MG TABLET PO (09:43)
[2025-07-14] MEDS: PANTOPRAZOLE 40 MG TABLET PO ×2 (09:44→17:46)
[2025-07-14] MEDS: ASPIRIN 81 MG CHEWABLE TABLET PO (09:44)
[2025-07-14] MEDS: FUROSEMIDE 20 MG TABLET PO (09:44)
[2025-07-14] MEDS: CLOPIDOGREL BISULFATE 75 MG TABLET PO (09:44)
[2025-07-14] MEDS: CHOLECALCIFEROL (VITAMIN D3) 25 MCG (1,000 UNITS) TABLET 50 MCG PO (09:53)
[2025-07-14] MEDS: TAMSULOSIN HCL 0.4 MG CAPSULE PO (20:46)
[2025-07-14] MEDS: MELATONIN 5 MG TABLET 10 MG PO (20:47)
[2025-07-15] VITALS (12 sets, daily range): BP systolic 108–111; BP diastolic 52–76; PULSE 62–83; RESP 16–18; TEMP 36.2–36.5; O2SAT 92–100
[2025-07-15] MEDS: AMPICILLIN SODIUM/SULBACTAM 3 GM in SODIUM CHLORIDE 0.9% IV 100 ML 200 ML IVPB ×3 (05:48→17:50)
[2025-07-15] MEDS: LEVOTHYROXINE SODIUM 100 MCG TABLET PO (05:51)
[2025-07-15 05:52] LABS: Hematocrit 35.2 % (42.0-52.0); Hemoglobin 11.4 g/dL (14.0-18.0); Mean Corpuscular HGB Conc 32.4 g/dl (32-36); Mean Corpuscular Hemoglobin 32.9 pg (26-34); Mean Corpuscular Volume 101.7 fl (80-100); Platelet Count Result 138 k/mm3 (150-375); Red Blood Count 3.46 M/mm3 (4.6-6.20); White Blood Count 6.0 K/mm3 (4.5-10.0)
[2025-07-15 06:23] LABS: Alanine Aminotransferase 11 U/L (6-50); Albumin Level 2.8 g/dL (3.5-5.1); Alkaline Phosphatase 80 U/L (38-126); Anion Gap 3 mmol/L (4-12); Aspartate Amino Transferase 19 U/L (17-59); Bilirubin,Total 0.5 mg/dL (0.2-1.3); Blood Urea Nitrogen 16 mg/dL (9-20); Calcium 8.3 mg/dL (8.4-10.2); Carbon Dioxide 28 mmol/L (22-30); Chloride 107 mmol/L (98-107); Estimated CRCL calculation 43 ml/min; Estimated Glomerular Filt Rate 55; Glucose 100 mg/dL (65-110); Potassium 3.9 mmol/L (3.4-5.0); Sodium 138 mmol/L (137-145); Total Protein 5.8 g/dL (6.3-8.2)
--- NOTE | 2025-07-15 08:35 | PM.IMPN ---
Progress Note: A&P Assessment and Plan (1) Acute UTI: Code(s): N39.0 - Urinary tract infection, site not specified Status: Acute Assessment and Plan: - UA: turbid appearance, 1+ protein, trace ketones, 3+ blood, negative nitrates, 3+ leukocytes, >100 RBC, > 100 WBC, rare bacteria - UC obtained on 07/11: growth observed Call made to [facility] to discuss what growth is being observed and they state they are still awaiting further results. - blood culture obtained on 07/11: NGTD - previous micro reviewed 02/15/25: enterococcus species pansensitive - started on Vancomycin and Rocephin on 07/11 -the patient is on Myrbetriq which may be causing his UTIs. This is on hold at this time. (2) Hypothyroidism: Code(s): E03.9 - Hypothyroidism, unspecified Status: Acute Assessment and Plan: History of thyroidectomy -TSH level is subtherapeutic at 0.092, however T4 anad T3 WNL. - Continue levothyroxine 100 mcg - Repeat thyroid levels after he is discharged and free of infection per PCP (3) Ectopic beats: Code(s): I49.49 - Other premature depolarization Status: Acute Assessment and Plan: - Placed on telemetry which is showing frequent PVCs in [facility], [facility] - school lunch monitor on 3 weeks ago Interpreted on 07/11: frequent PVC with occasional ventricular couplets and rare triplets, see report for further information - seen by Dr. Caban, placed on metoprolol. Patient to have a follow up this month. - remains asymptomatic denying chest pain, palpitations, dizziness and lightheadedness (4) Stroke with left hemiparesis: Status: Acute Assessment and Plan: History of stroke in Nov 2022 with left upper extremity residual -Continue rosuvastatin, aspirin and Plavix -the patient has been in physical therapy. -continue muscle relaxer. -continue with gabapentin for the neuropathy (5) AAA (abdominal aortic aneurysm): Code(s): I71.40 - Abdominal aortic aneurysm, without rupture, unspecified Status: Acute Assessment and Plan: -CT of the abdomen shows. 3.5 cm fusiform infrarenal aortic aneurysm. -Patient is aware of his aneurysm. Continue with follow-up visits with PCP and cardiology (6) CAD (coronary artery disease): Code(s): I25.10 - Atherosclerotic heart disease of [place] coronary artery without angina pectoris Status: Acute Assessment and Plan: -Follows with Dr. Caban, hx of cardiac stent -Continue metoprolol 12.5 mg daily -continue with rosuvastatin (7) Depression with anxiety: Code(s): F41.8 - Other specified anxiety disorders Status: Acute Assessment and Plan: -continue with paroxetine (8) BPH (benign prostatic hyperplasia): Code(s): N40.0 - Benign prostatic hyperplasia without lower urinary tract symptoms Status: Acute Assessment and Plan: -continue with Flomax (9) Dyslipidemia: Code(s): E78.5 - Hyperlipidemia, unspecified Status: Acute Assessment and Plan: -continue with rosuvastatin. Monitor liver enzymes Time Spent With Patient Time with patient: 25 - 35 minutes Subjective Date/time seen: 07/15/25 08:35 Interval history: 79-year-old male with past medical history of CVA with chronic left sided deficits, infrarenal abdominal aortic aneurysm with penetrating ulcer in September 2023, hypertension, hyperlipidemia, hypothyroidism, esophageal stricture status post dilatation, gastroesophageal reflux disease, Noemy fundoplication, and arthritis presents to the hospital with complaints of generalized weakness. Patient is pleasant sitting up comfortably in his chair. He is endorsing some rectal pain that he relates to his known hemorrhoids. He states that he has been having a hard time having bowel movements and endorses slight constipation. He denies any associated nausea/vomiting and continues to tolerate his diet well. He has no other complaints denying chest pain, shortness a breath, palpitations, and is ambulating throughout the room with nursing and not reporting any dizziness/lightheadedness. Review of Systems Review of Systems: All systems reviewed & are unremarkable except as noted in HPI and below Exam Narrative: AF HR 64 RR 18 Spo2 98 BP 111/52 General: male in no acute respiratory distress who is nontoxic appearing, sitting up in chair HEENT: Normocephalic. Atraumatic. Extraocular movement intact. Sclera clear and anicteric. No facial asymmetry. Chest: Lungs are clear to auscultation bilaterally. CV: Heart was regular rate and rhythm. Abd: Abdomen was soft. Nontender. Nondistended. Positive bowel sounds. Ext: No clubbing, cyanosis. Chronic left sided deficits to the upper extremity, no wrist flexion/extension. Objective Data Vital Signs Vital Signs: Vital Signs - 24 hr 07/14/25 09:43 07/14/25 09:45 07/14/25 12:00 Temperature Pulse Rate 58 L 58 L 63 Respiratory Rate Blood Pressure Pulse Oximetry 98 Oxygen Delivery Room Air Fraction of Inspired Oxygen 07/14/25 14:00 07/14/25 16:00 07/14/25 20:00 Temperature 97.9 F Pulse Rate 58 L 67 63 Respiratory Rate 20 Blood Pressure 101/53 L Pulse Oximetry 98 Oxygen Delivery Fraction of Inspired Oxygen 07/14/25 21:04 07/14/25 22:00 07/15/25 00:00 Temperature 97.5 F L Pulse Rate 101 H 57 L 63 Respiratory Rate 20 18 Blood Pressure 121/80 Pulse Oximetry 91 100 Oxygen Delivery Room Air Fraction of Inspired Oxygen 21 07/15/25 04:00 07/15/25 06:00 Temperature 97.2 F L Pulse Rate 76 64 Respiratory Rate 18 Blood Pressure 111/52 L Pulse Oximetry 98 Oxygen Delivery Fraction of Inspired Oxygen Intake/Output Intake/Output: Intake & Output 07/12/25 07/13/25 07/14/25 07/15/25 23:59 23:59 23:59 23:59 Intake Total 1767 2710 4290 600 Output Total 400 1000 1300 Balance 1367 1710 2990 600 Meds/Results Medications: Active Medications Generic Name Dose Route Start Last Admin Trade Name Freq PRN Reason Stop Dose Admin Acetaminophen 1,000 mg 07/11/25 23:38 07/13/25 08:15 Acetaminophen 500 Mg Tablet PO 1,000 mg Q6H PRN Administration Pain Albuterol 1 puff 07/11/25 23:38 Albuterol Sulfate (*Sp) Aerosol 1 Puff INHALATION Q8H PRN Shortness Of Breath Or Wheezing Aspirin 81 mg 07/12/25 08:00 07/14/25 09:44 Aspirin 81 Mg Chewable Tablet PO 81 mg DAILY@0800 AIMEE Administration Clopidogrel Bisulfate 75 mg 07/12/25 09:00 07/14/25 09:44 Clopidogrel Bisulfate 75 Mg Tablet PO 75 mg DAILY AIMEE Administration Ferrous Sulfate 325 mg 07/12/25 09:00 07/14/25 17:46 Ferrous Sulfate 325 Mg Tablet BY MOUTH 325 mg BID AIMEE Administration Furosemide 20 mg 07/12/25 09:00 07/14/25 09:44 Furosemide 20 Mg Tablet PO 20 mg DAILY AIMEE Administration Gabapentin 600 mg 07/12/25 09:00 07/14/25 17:46 Gabapentin 300 Mg Capsule PO 600 mg TID AIMEE Administration Ampicillin Sodium/Sulbactam 100 mls @ 200 mls/hr 07/12/25 18:00 07/15/25 06:34 Sodium 3 gm/ Sodium Chloride IVPB Infused Q6H AIMEE Infusion Levothyroxine Sodium 100 mcg 07/12/25 06:30 07/15/25 05:51 Levothyroxine Sodium 100 Mcg Tablet PO 100 mcg DAILY@0630 AIMEE Administration Loratadine 10 mg 07/12/25 09:00 07/14/25 09:43 Loratadine 10 Mg Tablet PO 10 mg QAM [facility] Administration Melatonin 10 mg 07/11/25 23:38 07/14/25 20:47 Melatonin 5 Mg Tablet PO 10 mg HS PRN Administration Sleep Metoprolol Succinate 12.5 mg 07/12/25 09:00 07/14/25 09:43 Metoprolol Succinate Ext Rel 12.5 Mg Tabcr PO 12.5 mg DAILY AIMEE Administration Pantoprazole Sodium 40 mg 07/12/25 09:00 07/14/25 17:46 Pantoprazole 40 Mg Tablet PO 40 mg BID [facility] Administration Paroxetine HCl 20 mg 07/12/25 09:00 07/14/25 09:44 Paroxetine 20 Mg Tablet PO 20 mg QAM [facility] Administration Phenyleph/Shark Oil/Min Oil/Petrol 1 applic 07/15/25 09:00 Phenyleph/Shark Oil/Mo/Petrol Cream 26 Gm RECTAL DAILY [facility] Polyethylene Glycol 17 gm 07/15/25 08:19 Polyethylene Glycol 3350 17 Gm Powd.Pack PO QAM PRN Constipation Rosuvastatin Calcium 40 mg 07/12/25 09:00 07/14/25 09:42 Rosuvastatin 20 Mg Tablet PO 40 mg DAILY AIMEE Administration Senna/Docusate Sodium 1 tab 07/15/25 21:00 Senna/Docusate Sodium Tablet PO HS AIMEE Tamsulosin HCl 0.4 mg 07/12/25 00:20 07/14/25 20:46 Tamsulosin Hcl 0.4 Mg Capsule PO 0.4 mg HS [facility] Administration Tizanidine HCl 2 mg 07/11/25 23:38 Tizanidine Hcl 2 Mg Tablet PO Q8H PRN Muscle Pain Vitamin D 50 mcg 07/12/25 09:00 07/14/25 09:53 Cholecalciferol (Vitamin D3) 25 Mcg (1,000 Units) Tablet PO 50 mcg DAILY AIMEE Administration Radiology Results: ITS Impressions Chest X-Ray 07/11/25 15:41 Impression: No acute cardiopulmonary abnormality. Head CT 07/11/25 17:12 Impression: 1.No acute intracranial abnormality. Cervical Spine CT 07/11/25 17:13 Impression: No acute abnormality. Chest/Abdomen/Pelvis CT 07/11/25 18:36 IMPRESSION: 1. Small sliding hiatal hernia. 2. Bilateral inguinal hernias containing fat. 3. 3.5 cm fusiform infrarenal aortic aneurysm. Labs Labs: Laboratory Results - last 24 hr 07/15/25 05:28 WBC 6.0 RBC 3.46 L Hgb 11.4 L Hct 35.2 L MCV 101.7 H MCH 32.9 MCHC 32.4 RDW 14.6 H Plt Count 138 L MPV 11.8 H Sodium 138 Potassium 3.9 Chloride 107 Carbon Dioxide 28 Anion Gap 3 L BUN 16 Creatinine 1.27 Estim Creat Clear Calc 43 Estimated GFR 55 L Glucose 100 Calcium 8.3 L Total Bilirubin 0.5 AST 19 ALT 11 Alkaline Phosphatase 80 Total Protein 5.8 L Albumin 2.8 L Quality VTE Prophylaxis VTE prophylaxis: mechanical ordered and pharmacologic ordered
[2025-07-15] MEDS: ROSUVASTATIN 20 MG TABLET 40 MG PO (10:09)
[2025-07-15] MEDS: CLOPIDOGREL BISULFATE 75 MG TABLET PO (10:09)
[2025-07-15] MEDS: FUROSEMIDE 20 MG TABLET PO (10:10)
[2025-07-15] MEDS: CHOLECALCIFEROL (VITAMIN D3) 25 MCG (1,000 UNITS) TABLET 50 MCG PO (10:10)
[2025-07-15] MEDS: FERROUS SULFATE 325 MG TABLET BY MOUTH ×2 (10:10→17:50)
[2025-07-15] MEDS: ASPIRIN 81 MG CHEWABLE TABLET PO (10:11)
[2025-07-15] MEDS: GABAPENTIN 300 MG CAPSULE 600 MG PO ×3 (10:11→17:50)
[2025-07-15] MEDS: LORATADINE 10 MG TABLET PO (10:11)
[2025-07-15] MEDS: PANTOPRAZOLE 40 MG TABLET PO ×2 (10:11→17:50)
[2025-07-15] MEDS: ACETAMINOPHEN 500 MG TABLET 1000 MG PO (10:12)
[2025-07-15] MEDS: METOPROLOL SUCCINATE EXT REL 12.5 MG TABCR PO (10:18)
[2025-07-15] MEDS: PHENYLEPH/SHARK OIL/MO/PETROL CREAM 26 GM 1 APPLIC RECTAL (10:21)
--- NOTE | 2025-07-15 10:45 | PC.NURSE ---
Patient reported constipation at 0845, provider notified, new orders for laxative and stool softener received. Patient was informed that orders for new medications were entered and will be administered shortly. When giving am meds at 1000, patients son stated he had just given his dad ex lax OTC. Explained to patient and his son that we do not allow self administration of home medications without prior approval by hospitalist and review of medication by pharmacy.
--- NOTE | 2025-07-15 16:34 | PCOTNOTE ---
Patient agreeable to therapy but wanted to finish eating first. Will attempt back as time permits.
[2025-07-15] MEDS: TAMSULOSIN HCL 0.4 MG CAPSULE PO (19:54)
[2025-07-15] MEDS: SENNA/DOCUSATE SODIUM TABLET 1 TAB PO (19:55)
[2025-07-16] VITALS (11 sets, daily range): BP systolic 118–133; BP diastolic 57–72; PULSE 58–84; RESP 16–18; TEMP 36.4–37.2; O2SAT 100
[2025-07-16] MEDS: AMPICILLIN SODIUM/SULBACTAM 3 GM in SODIUM CHLORIDE 0.9% IV 100 ML 200 ML IVPB ×3 (00:27→12:30)
[2025-07-16] MEDS: LEVOTHYROXINE SODIUM 100 MCG TABLET PO (05:37)
[2025-07-16 05:56] LABS: Hematocrit 41.5 % (42.0-52.0); Hemoglobin 13.5 g/dL (14.0-18.0); Mean Corpuscular HGB Conc 32.5 g/dl (32-36); Mean Corpuscular Hemoglobin 33.7 pg (26-34); Mean Corpuscular Volume 103.5 fl (80-100); Platelet Count Result 147 k/mm3 (150-375); Red Blood Count 4.01 M/mm3 (4.6-6.20); White Blood Count 8.9 K/mm3 (4.5-10.0)
[2025-07-16 06:23] LABS: Alanine Aminotransferase 22 U/L (6-50); Albumin Level 3.4 g/dL (3.5-5.1); Alkaline Phosphatase 89 U/L (38-126); Anion Gap 8 mmol/L (4-12); Aspartate Amino Transferase 62 U/L (17-59); Bilirubin,Total 0.8 mg/dL (0.2-1.3); Blood Urea Nitrogen 14 mg/dL (9-20); Calcium 8.4 mg/dL (8.4-10.2); Carbon Dioxide 22 mmol/L (22-30); Chloride 107 mmol/L (98-107); Estimated CRCL calculation 49 ml/min; Estimated Glomerular Filt Rate > 60; Glucose 103 mg/dL (65-110); Potassium 3.6 mmol/L (3.4-5.0); Sodium 137 mmol/L (137-145); Total Protein 6.8 g/dL (6.3-8.2)
--- NOTE | 2025-07-16 09:15 | PM.IMPN ---
Progress Note: A&P Assessment and Plan (1) Acute UTI: Code(s): N39.0 - Urinary tract infection, site not specified Status: Acute Assessment and Plan: - UA: turbid appearance, 1+ protein, trace ketones, 3+ blood, negative nitrates, 3+ leukocytes, >100 RBC, > 100 WBC, rare bacteria - UC obtained on 07/11: Enterococcus faecalis pansensitive - blood culture obtained on 07/11: NGTD - previous micro reviewed 02/15/25: enterococcus species pansensitive - started on Vancomycin and Rocephin on 07/11, transitioned to amoxicillin on 07/16 Discussed antibiotic regimen with [facility]. -the patient is on Myrbetriq which may be causing his UTIs. This is on hold at this time. (2) Hypothyroidism: Code(s): E03.9 - Hypothyroidism, unspecified Status: Acute Assessment and Plan: History of thyroidectomy -TSH level is subtherapeutic at 0.092, however T4 anad T3 WNL. 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 Caban, placed on metoprolol. Patient to have a follow up this month. Discussed patient with Dr. Caban who states patient being referred to EP at [facility] for an ablation. No further changes to be made at this time as patient remains asymptomatic. Continue metoprolol. - remains asymptomatic denying chest pain, palpitations, dizziness and lightheadedness (4) Stroke with left hemiparesis: Status: Acute Assessment and Plan: History of stroke in Nov 2022 with left upper extremity residual -Continue rosuvastatin, aspirin and Plavix -the patient has been in physical therapy. -continue muscle relaxer. -continue with gabapentin for the neuropathy (5) AAA (abdominal aortic aneurysm): Code(s): I71.40 - Abdominal aortic aneurysm, without rupture, unspecified Status: Acute Assessment and Plan: -CT of the abdomen shows. 3.5 cm fusiform infrarenal aortic aneurysm. -Patient is aware of his aneurysm. Continue with follow-up visits with PCP and cardiology (6) CAD (coronary artery disease): Code(s): I25.10 - Atherosclerotic heart disease of [place] coronary artery without angina pectoris Status: Acute Assessment and Plan: -Follows with Dr. Caban, hx of cardiac stent -Continue metoprolol 12.5 mg daily -continue with rosuvastatin (7) Depression with anxiety: Code(s): F41.8 - Other specified anxiety disorders Status: Acute Assessment and Plan: -continue with paroxetine (8) BPH (benign prostatic hyperplasia): Code(s): N40.0 - Benign prostatic hyperplasia without lower urinary tract symptoms Status: Acute Assessment and Plan: -continue with Flomax (9) Dyslipidemia: Code(s): E78.5 - Hyperlipidemia, unspecified Status: Acute Assessment and Plan: -continue with rosuvastatin. Monitor liver enzymes Time Spent With Patient Time with patient: 25 - 35 minutes Subjective Date/time seen: 07/16/25 09:15 Interval history: 79-year-old male with past medical history of CVA with chronic left sided deficits, infrarenal abdominal aortic aneurysm with penetrating ulcer in September 2023, hypertension, hyperlipidemia, hypothyroidism, esophageal stricture status post dilatation, gastroesophageal reflux disease, Noemy fundoplication, and arthritis presents to the hospital with complaints of generalized weakness. Patient is pleasant sitting up comfortably in his chair. He has no complaints at this time denying chest pain, shortness a breath, palpitations, nausea/vomiting, and abdominal pain. Review of Systems Review of Systems: All systems reviewed & are unremarkable except as noted in HPI and below Exam Narrative: AF HR 58 RR 18 SPo2 100 BP 120/57 General: male in no acute respiratory distress who is nontoxic appearing, sitting up in chair Chest: Lungs are clear to auscultation bilaterally. CV: Heart was regular rate and rhythm. Abd: Abdomen was soft. Nontender. Nondistended. Positive bowel sounds. Ext: No clubbing, cyanosis. Chronic left sided deficits to the upper extremity, no wrist flexion/extension. Objective Data Vital Signs Vital Signs: Vital Signs - 24 hr 07/15/25 10:00 07/15/25 10:18 07/15/25 12:00 Temperature Pulse Rate 68 75 Respiratory Rate Blood Pressure Pulse Oximetry 100 Oxygen Delivery Room Air Fraction of Inspired Oxygen 07/15/25 14:00 07/15/25 16:00 07/15/25 19:45 Temperature 97.7 F Pulse Rate 65 83 79 Respiratory Rate 16 Blood Pressure 108/76 Pulse Oximetry 100 92 Oxygen Delivery Room Air Fraction of Inspired Oxygen 21 07/15/25 20:00 07/15/25 20:00 07/15/25 22:00 Temperature 97.6 F Pulse Rate 76 62 Respiratory Rate 16 Blood Pressure 110/60 Pulse Oximetry 99 Oxygen Delivery Room Air Fraction of Inspired Oxygen 07/16/25 00:00 07/16/25 04:00 07/16/25 06:00 Temperature 97.6 F Pulse Rate 66 73 63 Respiratory Rate 16 Blood Pressure 133/72 Pulse Oximetry 100 Oxygen Delivery Fraction of Inspired Oxygen Intake/Output Intake/Output: Intake & Output 07/13/25 07/14/25 07/15/25 07/16/25 23:59 23:59 23:59 23:59 Intake Total 2710 4290 3020 420 Output Total 1000 1300 Balance 1710 2990 3020 420 Meds/Results Medications: Active Medications Generic Name Dose Route Start Last Admin Trade Name Freq PRN Reason Stop Dose Admin Acetaminophen 1,000 mg 07/11/25 23:38 07/15/25 10:12 Acetaminophen 500 Mg Tablet PO 1,000 mg Q6H PRN Administration Pain Albuterol 1 puff 07/11/25 23:38 Albuterol Sulfate (*Sp) Aerosol 1 Puff INHALATION Q8H PRN Shortness Of Breath Or Wheezing Aspirin 81 mg 07/12/25 08:00 07/15/25 10:11 Aspirin 81 Mg Chewable Tablet PO 81 mg DAILY@0800 AIMEE Administration Clopidogrel Bisulfate 75 mg 07/12/25 09:00 07/15/25 10:09 Clopidogrel Bisulfate 75 Mg Tablet PO 75 mg DAILY AIMEE Administration Ferrous Sulfate 325 mg 07/12/25 09:00 07/15/25 17:50 Ferrous Sulfate 325 Mg Tablet BY MOUTH 325 mg BID AIMEE Administration Furosemide 20 mg 07/12/25 09:00 07/15/25 10:10 Furosemide 20 Mg Tablet PO 20 mg DAILY AIMEE Administration Gabapentin 600 mg 07/12/25 09:00 07/15/25 17:50 Gabapentin 300 Mg Capsule PO 600 mg TID AIMEE Administration Ampicillin Sodium/Sulbactam 100 mls @ 200 mls/hr 07/12/25 18:00 07/16/25 05:37 Sodium 3 gm/ Sodium Chloride IVPB 200 mls/hr Q6H AIMEE Administration Levothyroxine Sodium 100 mcg 07/12/25 06:30 07/16/25 05:37 Levothyroxine Sodium 100 Mcg Tablet PO 100 mcg DAILY@0630 AIMEE Administration Loratadine 10 mg 07/12/25 09:00 07/15/25 10:11 Loratadine 10 Mg Tablet PO 10 mg QAM [facility] Administration Melatonin 10 mg 07/11/25 23:38 07/14/25 20:47 Melatonin 5 Mg Tablet PO 10 mg HS PRN Administration Sleep Metoprolol Succinate 12.5 mg 07/12/25 09:00 07/15/25 10:18 Metoprolol Succinate Ext Rel 12.5 Mg Tabcr PO 12.5 mg DAILY AIMEE Administration Pantoprazole Sodium 40 mg 07/12/25 09:00 07/15/25 17:50 Pantoprazole 40 Mg Tablet PO 40 mg BID AIMEE Administration Paroxetine HCl 20 mg 07/12/25 09:00 07/15/25 10:10 Paroxetine 20 Mg Tablet PO 20 mg QAM [facility] Administration Phenyleph/Shark Oil/Min Oil/Petrol 1 applic 07/15/25 09:00 07/15/25 10:21 Phenyleph/Shark Oil/Mo/Petrol Cream 26 Gm RECTAL 1 applic DAILY [facility] Administration Polyethylene Glycol 17 gm 07/15/25 08:19 07/15/25 12:55 Polyethylene Glycol 3350 17 Gm Powd.Pack PO 17 gm QAM PRN Administration Constipation Rosuvastatin Calcium 40 mg 07/12/25 09:00 07/15/25 10:09 Rosuvastatin 20 Mg Tablet PO 40 mg DAILY AIMEE Administration Senna/Docusate Sodium 1 tab 07/15/25 21:00 07/15/25 19:55 Senna/Docusate Sodium Tablet PO 1 tab HS AIMEE Administration Tamsulosin HCl 0.4 mg 07/12/25 00:20 07/15/25 19:54 Tamsulosin Hcl 0.4 Mg Capsule PO 0.4 mg HS AIMEE Administration Tizanidine HCl 2 mg 07/11/25 23:38 Tizanidine Hcl 2 Mg Tablet PO Q8H PRN Muscle Pain Vitamin D 50 mcg 07/12/25 09:00 07/15/25 10:10 Cholecalciferol (Vitamin D3) 25 Mcg (1,000 Units) Tablet PO 50 mcg DAILY AIMEE Administration Radiology Results: ITS Impressions Chest X-Ray 07/11/25 15:41 Impression: No acute cardiopulmonary abnormality. Head CT 07/11/25 17:12 Impression: 1.No acute intracranial abnormality. Cervical Spine CT 07/11/25 17:13 Impression: No acute abnormality. Chest/Abdomen/Pelvis CT 07/11/25 18:36 IMPRESSION: 1. Small sliding hiatal hernia. 2. Bilateral inguinal hernias containing fat. 3. 3.5 cm fusiform infrarenal aortic aneurysm. Labs Labs: Laboratory Results - last 24 hr 07/16/25 05:22 WBC 8.9 RBC 4.01 L Hgb 13.5 L Hct 41.5 L MCV 103.5 H MCH 33.7 MCHC 32.5 RDW 14.4 Plt Count 147 L MPV 11.6 H Sodium 137 Potassium 3.6 Chloride 107 Carbon Dioxide 22 Anion Gap 8 BUN 14 Creatinine 1.10 Estim Creat Clear Calc 49 Estimated GFR > 60 Glucose 103 Calcium 8.4 Total Bilirubin 0.8 AST 62 H ALT 22 Alkaline Phosphatase 89 Total Protein 6.8 Albumin 3.4 L Quality VTE Prophylaxis VTE prophylaxis: mechanical ordered and pharmacologic ordered
[2025-07-16] MEDS: CHOLECALCIFEROL (VITAMIN D3) 25 MCG (1,000 UNITS) TABLET 50 MCG PO (10:06)
[2025-07-16] MEDS: FERROUS SULFATE 325 MG TABLET BY MOUTH ×2 (10:07→17:50)
[2025-07-16] MEDS: LORATADINE 10 MG TABLET PO (10:07)
[2025-07-16] MEDS: PANTOPRAZOLE 40 MG TABLET PO ×2 (10:07→17:51)
[2025-07-16] MEDS: FUROSEMIDE 20 MG TABLET PO (10:07)
[2025-07-16] MEDS: GABAPENTIN 300 MG CAPSULE 600 MG PO ×3 (10:08→17:51)
[2025-07-16] MEDS: ASPIRIN 81 MG CHEWABLE TABLET PO (10:08)
[2025-07-16] MEDS: ROSUVASTATIN 20 MG TABLET 40 MG PO (10:08)
[2025-07-16] MEDS: METOPROLOL SUCCINATE EXT REL 12.5 MG TABCR PO (10:09)
[2025-07-16] MEDS: CLOPIDOGREL BISULFATE 75 MG TABLET PO (10:11)
--- NOTE | 2025-07-16 13:06 | PCPTNOTE ---
Attempted PT treatment, pt eating and requested therapist to return at later time. Will follow.
[2025-07-16] MEDS: SENNA/DOCUSATE SODIUM TABLET 1 TAB PO (21:38)
[2025-07-16] MEDS: TAMSULOSIN HCL 0.4 MG CAPSULE PO (21:38)
[2025-07-16] MEDS: AMOXICILLIN 500 MG CAPSULE PO (21:38)
[2025-07-16] MEDS: MELATONIN 5 MG TABLET 10 MG PO (21:39)
[2025-07-17] VITALS (11 sets, daily range): BP systolic 100–111; BP diastolic 60–67; PULSE 50–85; RESP 15–18; TEMP 36.1–36.8; O2SAT 91–99
[2025-07-17] MEDS: AMOXICILLIN 500 MG CAPSULE PO ×3 (05:51→20:04)
[2025-07-17] MEDS: LEVOTHYROXINE SODIUM 100 MCG TABLET PO (05:51)
[2025-07-17 05:54] LABS: Hematocrit 35.8 % (42.0-52.0); Hemoglobin 11.8 g/dL (14.0-18.0); Mean Corpuscular HGB Conc 33.0 g/dl (32-36); Mean Corpuscular Hemoglobin 33.1 pg (26-34); Mean Corpuscular Volume 100.6 fl (80-100); Platelet Count Result 142 k/mm3 (150-375); Red Blood Count 3.56 M/mm3 (4.6-6.20); White Blood Count 6.2 K/mm3 (4.5-10.0)
[2025-07-17 06:16] LABS: Alanine Aminotransferase 20 U/L (6-50); Albumin Level 2.8 g/dL (3.5-5.1); Alkaline Phosphatase 82 U/L (38-126); Anion Gap 3 mmol/L (4-12); Aspartate Amino Transferase 48 U/L (17-59); Bilirubin,Total 0.5 mg/dL (0.2-1.3); Blood Urea Nitrogen 14 mg/dL (9-20); Calcium 8.4 mg/dL (8.4-10.2); Carbon Dioxide 27 mmol/L (22-30); Chloride 107 mmol/L (98-107); Estimated CRCL calculation 53 ml/min; Estimated Glomerular Filt Rate > 60; Glucose 96 mg/dL (65-110); Potassium 3.7 mmol/L (3.4-5.0); Sodium 137 mmol/L (137-145); Total Protein 5.7 g/dL (6.3-8.2)
--- NOTE | 2025-07-17 07:31 | PM.IMPN ---
Progress Note: A&P Assessment and Plan (1) Acute UTI: Code(s): N39.0 - Urinary tract infection, site not specified Status: Acute Assessment and Plan: - UA: turbid appearance, 1+ protein, trace ketones, 3+ blood, negative nitrates, 3+ leukocytes, >100 RBC, > 100 WBC, rare bacteria - UC obtained on 07/11: Enterococcus faecalis pansensitive - blood culture obtained on 07/11: NGTD - previous micro reviewed 02/15/25: enterococcus species pansensitive - started on Vancomycin and Rocephin on 07/11, transitioned to amoxicillin on 07/16. Course to be completed on 07/18. Discussed antibiotic regimen with ID pharmacy. -the patient is on Myrbetriq which may be causing his UTIs. This is on hold at this time. 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 Caban, placed on metoprolol. Patient to have a follow up this month. Discussed patient with Dr. Caban who states patient being referred to EP at [facility] for an ablation. No further changes to be made at this time as patient remains asymptomatic. Continue metoprolol. Patient continues to denying chest pain, palpitaitons, dizziness/lightheadedness. (3) Hypothyroidism: Code(s): E03.9 - Hypothyroidism, unspecified Status: Acute Assessment and Plan: History of thyroidectomy -TSH level is subtherapeutic at 0.092, however T4 anad T3 WNL. - Continue levothyroxine 100 mcg - Repeat thyroid levels after he is discharged and free of infection per PCP (4) Stroke with left hemiparesis: Status: Acute Assessment and Plan: History of stroke in Nov 2022 with left upper extremity residual -Continue rosuvastatin, aspirin and Plavix -the patient has been in physical therapy. -continue muscle relaxer. -continue with gabapentin for the neuropathy (5) AAA (abdominal aortic aneurysm): Code(s): I71.40 - Abdominal aortic aneurysm, without rupture, unspecified Status: Acute Assessment and Plan: -CT of the abdomen shows. 3.5 cm fusiform infrarenal aortic aneurysm. -Patient is aware of his aneurysm. Continue with follow-up visits with PCP and cardiology (6) CAD (coronary artery disease): Code(s): I25.10 - Atherosclerotic heart disease of elim ira coronary artery without angina pectoris Status: Acute Assessment and Plan: -Follows with Dr. Caban, hx of cardiac stent -Continue metoprolol 12.5 mg daily -continue with rosuvastatin (7) Depression with anxiety: Code(s): F41.8 - Other specified anxiety disorders Status: Acute Assessment and Plan: -continue with paroxetine (8) BPH (benign prostatic hyperplasia): Code(s): N40.0 - Benign prostatic hyperplasia without lower urinary tract symptoms Status: Acute Assessment and Plan: -continue with Flomax (9) Dyslipidemia: Code(s): E78.5 - Hyperlipidemia, unspecified Status: Acute Assessment and Plan: -continue with rosuvastatin. Monitor liver enzymes Time Spent With Patient Time with patient: 25 - 35 minutes Subjective Date/time seen: 07/17/25 07:31 Interval history: 79-year-old male with past medical history of CVA with chronic left sided deficits, infrarenal abdominal aortic aneurysm with penetrating ulcer in September 2023, hypertension, hyperlipidemia, hypothyroidism, esophageal stricture status post dilatation, gastroesophageal reflux disease, Noemy fundoplication, and arthritis presents to the hospital with complaints of generalized weakness. Patient is pleasant sitting up comfortably in his chair. He has no complaints denying chest pain, shortness a breath, palpitations, nausea/vomiting, abdominal pain, and dizziness/lightheadedness. Patient remains inpatient pending placement. He continues to work with PT/OT. Review of Systems Review of Systems: All systems reviewed & are unremarkable except as noted in HPI and below Exam Narrative: AF HR 63 RR 18 Spo2 99 BP 111/67 General: male in no acute respiratory distress who is nontoxic appearing, sitting up in chair Chest: Lungs are clear to auscultation bilaterally. CV: Heart was regular rate and rhythm. Abd: Abdomen was soft. Nontender. Nondistended. Positive bowel sounds. Ext: No clubbing, cyanosis. Chronic left sided deficits to the upper extremity, no wrist flexion/extension. Objective Data Vital Signs Vital Signs: Vital Signs - 24 hr 10/06/25 08:00 07/16/25 10:09 07/16/25 10:10 Temperature Pulse Rate 81 68 Respiratory Rate Blood Pressure Pulse Oximetry 100 Oxygen Delivery Room Air 07/16/25 12:00 07/16/25 14:00 07/16/25 14:45 Temperature 98.9 F Pulse Rate 67 58 L Respiratory Rate 18 Blood Pressure 120/57 L Pulse Oximetry 100 Oxygen Delivery Room Air 07/16/25 16:00 07/16/25 20:00 07/16/25 20:00 Temperature Pulse Rate 84 65 Respiratory Rate Blood Pressure Pulse Oximetry Oxygen Delivery Room Air 07/16/25 22:00 07/17/25 00:00 07/17/25 04:00 Temperature 98.0 F Pulse Rate 66 82 85 Respiratory Rate 18 Blood Pressure 118/61 Pulse Oximetry 100 Oxygen Delivery Intake/Output Intake/Output: Intake & Output 07/14/25 07/15/25 07/16/25 07/17/25 23:59 23:59 23:59 23:59 Intake Total 4290 3020 1720 Output Total 1300 900 400 Balance 2990 3020 820 -400 Meds/Results Medications: Active Medications Generic Name Dose Route Start Last Admin Trade Name Freq PRN Reason Stop Dose Admin Acetaminophen 1,000 mg 07/11/25 23:38 07/15/25 10:12 Acetaminophen 500 Mg Tablet PO 1,000 mg Q6H PRN Administration Pain Albuterol 1 puff 07/11/25 23:38 Albuterol Sulfate (*Sp) Aerosol 1 Puff INHALATION Q8H PRN Shortness Of Breath Or Wheezing Amoxicillin 500 mg 07/16/25 22:00 07/17/25 05:51 Amoxicillin 500 Mg Capsule PO 07/18/25 22:01 500 mg Q8HR AIMEE Administration Aspirin 81 mg 07/12/25 08:00 07/16/25 10:08 Aspirin 81 Mg Chewable Tablet PO 81 mg DAILY@0800 AIMEE Administration Clopidogrel Bisulfate 75 mg 07/12/25 09:00 07/16/25 10:11 Clopidogrel Bisulfate 75 Mg Tablet PO 75 mg DAILY AIMEE Administration Ferrous Sulfate 325 mg 07/12/25 09:00 07/16/25 17:50 Ferrous Sulfate 325 Mg Tablet BY MOUTH 325 mg BID AIMEE Administration Furosemide 20 mg 07/12/25 09:00 07/16/25 10:07 Furosemide 20 Mg Tablet PO 20 mg DAILY AIMEE Administration Gabapentin 600 mg 07/12/25 09:00 07/16/25 17:51 Gabapentin 300 Mg Capsule PO 600 mg TID AIMEE Administration Levothyroxine Sodium 100 mcg 07/12/25 06:30 07/17/25 05:51 Levothyroxine Sodium 100 Mcg Tablet PO 100 mcg DAILY@0630 AIMEE Administration Loratadine 10 mg 07/12/25 09:00 07/16/25 10:07 Loratadine 10 Mg Tablet PO 10 mg QAM AIMEE Administration Melatonin 10 mg 07/11/25 23:38 07/16/25 21:39 Melatonin 5 Mg Tablet PO 10 mg HS PRN Administration Sleep Metoprolol Succinate 12.5 mg 07/12/25 09:00 07/16/25 10:09 Metoprolol Succinate Ext Rel 12.5 Mg Tabcr PO 12.5 mg DAILY AIMEE Administration Pantoprazole Sodium 40 mg 07/12/25 09:00 07/16/25 17:51 Pantoprazole 40 Mg Tablet PO 40 mg BID AIMEE Administration Paroxetine HCl 20 mg 07/12/25 09:00 07/16/25 10:09 Paroxetine 20 Mg Tablet PO 20 mg QAM AIMEE Administration Phenyleph/Shark Oil/Min Oil/Petrol 1 applic 07/15/25 09:00 07/16/25 10:12 Phenyleph/Shark Oil/Mo/Petrol Cream 26 Gm RECTAL Not Given DAILY AIMEE Polyethylene Glycol 17 gm 07/15/25 08:19 07/15/25 12:55 Polyethylene Glycol 3350 17 Gm Powd.Pack PO 17 gm QAM PRN Administration Constipation Rosuvastatin Calcium 40 mg 07/12/25 09:00 07/16/25 10:08 Rosuvastatin 20 Mg Tablet PO 40 mg DAILY AIMEE Administration Senna/Docusate Sodium 1 tab 07/15/25 21:00 07/16/25 21:38 Senna/Docusate Sodium Tablet PO 1 tab HS AIMEE Administration Tamsulosin HCl 0.4 mg 07/12/25 00:20 07/16/25 21:38 Tamsulosin Hcl 0.4 Mg Capsule PO 0.4 mg HS AIMEE Administration Tizanidine HCl 2 mg 07/11/25 23:38 Tizanidine Hcl 2 Mg Tablet PO Q8H PRN Muscle Pain Vitamin D 50 mcg 07/12/25 09:00 07/16/25 10:06 Cholecalciferol (Vitamin D3) 25 Mcg (1,000 Units) Tablet PO 50 mcg DAILY AIMEE Administration Radiology Results: ITS Impressions Chest X-Ray 07/11/25 15:41 Impression: No acute cardiopulmonary abnormality. Head CT 07/11/25 17:12 Impression: 1.No acute intracranial abnormality. Cervical Spine CT 07/11/25 17:13 Impression: No acute abnormality. Chest/Abdomen/Pelvis CT 07/11/25 18:36 IMPRESSION: 1. Small sliding hiatal hernia. 2. Bilateral inguinal hernias containing fat. 3. 3.5 cm fusiform infrarenal aortic aneurysm. Labs Labs: Laboratory Results - last 24 hr 07/17/25 05:31 WBC 6.2 RBC 3.56 L Hgb 11.8 L Hct 35.8 L MCV 100.6 H MCH 33.1 MCHC 33.0 RDW 14.4 Plt Count 142 L MPV 11.3 H Sodium 137 Potassium 3.7 Chloride 107 Carbon Dioxide 27 Anion Gap 3 L BUN 14 Creatinine 1.02 Estim Creat Clear Calc 53 Estimated GFR > 60 Glucose 96 Calcium 8.4 Total Bilirubin 0.5 AST 48 ALT 20 Alkaline Phosphatase 82 Total Protein 5.7 L Albumin 2.8 L Quality VTE Prophylaxis VTE prophylaxis: mechanical ordered and pharmacologic ordered
[2025-07-17] MEDS: CHOLECALCIFEROL (VITAMIN D3) 25 MCG (1,000 UNITS) TABLET 50 MCG PO (09:37)
[2025-07-17] MEDS: GABAPENTIN 300 MG CAPSULE 600 MG PO ×3 (09:37→18:00)
[2025-07-17] MEDS: FUROSEMIDE 20 MG TABLET PO (09:37)
[2025-07-17] MEDS: ROSUVASTATIN 20 MG TABLET 40 MG PO (09:37)
[2025-07-17] MEDS: METOPROLOL SUCCINATE EXT REL 12.5 MG TABCR PO (09:37)
[2025-07-17] MEDS: FERROUS SULFATE 325 MG TABLET BY MOUTH ×2 (09:38→18:01)
[2025-07-17] MEDS: PANTOPRAZOLE 40 MG TABLET PO ×2 (09:38→18:00)
[2025-07-17] MEDS: LORATADINE 10 MG TABLET PO (09:38)
[2025-07-17] MEDS: CLOPIDOGREL BISULFATE 75 MG TABLET PO (09:38)
[2025-07-17] MEDS: ASPIRIN 81 MG CHEWABLE TABLET PO (09:38)
[2025-07-17] MEDS: TAMSULOSIN HCL 0.4 MG CAPSULE PO (20:02)
[2025-07-17] MEDS: MELATONIN 5 MG TABLET 10 MG PO (20:04)
[2025-07-17] MEDS: ACETAMINOPHEN 500 MG TABLET 1000 MG PO (20:05)
[2025-07-18] VITALS (10 sets, daily range): BP systolic 105–134; BP diastolic 61–64; PULSE 53–87; RESP 16–20; TEMP 36.6–36.8; O2SAT 96–98
[2025-07-18 05:49] LABS: Hematocrit 32.5 % (42.0-52.0); Hemoglobin 10.8 g/dL (14.0-18.0); Immature Granulocyte Percent A 0.2 % (0-0.5); Lymphocytes Absolute Auto 2.35 K/mm3 (0.9-3.2); Mean Corpuscular HGB Conc 33.2 g/dl (32-36); Mean Corpuscular Hemoglobin 33.3 pg (26-34); Mean Corpuscular Volume 100.3 fl (80-100); Nucleated Red Blood Cells Absolute Auto 0.000 K/mm3 (0.0-0.012); Nucleated Red Blood Cells Perc 0.0 % (0.0-0.2); Platelet Count Result 144 k/mm3 (150-375); Red Blood Count 3.24 M/mm3 (4.6-6.20); White Blood Count 5.6 K/mm3 (4.5-10.0)
[2025-07-18 05:58] LABS: Alanine Aminotransferase 20 U/L (6-50); Albumin Level 2.6 g/dL (3.5-5.1); Alkaline Phosphatase 72 U/L (38-126); Anion Gap 3 mmol/L (4-12); Aspartate Amino Transferase 37 U/L (17-59); Bilirubin,Total 0.4 mg/dL (0.2-1.3); Blood Urea Nitrogen 15 mg/dL (9-20); Calcium 8.2 mg/dL (8.4-10.2); Carbon Dioxide 26 mmol/L (22-30); Chloride 108 mmol/L (98-107); Estimated CRCL calculation 50 ml/min; Estimated Glomerular Filt Rate > 60; Glucose 90 mg/dL (65-110); Potassium 3.6 mmol/L (3.4-5.0); Sodium 137 mmol/L (137-145); Total Protein 5.4 g/dL (6.3-8.2)
[2025-07-18] MEDS: LEVOTHYROXINE SODIUM 100 MCG TABLET PO (06:35)
[2025-07-18] MEDS: AMOXICILLIN 500 MG CAPSULE PO ×3 (06:35→20:27)
[2025-07-18] MEDS: ASPIRIN 81 MG CHEWABLE TABLET PO (08:32)
[2025-07-18] MEDS: FERROUS SULFATE 325 MG TABLET BY MOUTH ×2 (08:33→16:24)
[2025-07-18] MEDS: METOPROLOL SUCCINATE EXT REL 12.5 MG TABCR PO (08:33)
[2025-07-18] MEDS: CHOLECALCIFEROL (VITAMIN D3) 25 MCG (1,000 UNITS) TABLET 50 MCG PO (08:33)
[2025-07-18] MEDS: LORATADINE 10 MG TABLET PO (08:33)
[2025-07-18] MEDS: ROSUVASTATIN 20 MG TABLET 40 MG PO (08:33)
[2025-07-18] MEDS: GABAPENTIN 300 MG CAPSULE 600 MG PO ×3 (08:33→16:24)
[2025-07-18] MEDS: CLOPIDOGREL BISULFATE 75 MG TABLET PO (08:33)
[2025-07-18] MEDS: FUROSEMIDE 20 MG TABLET PO (08:33)
[2025-07-18] MEDS: PANTOPRAZOLE 40 MG TABLET PO ×2 (08:33→16:24)
--- NOTE | 2025-07-18 11:06 | PCNWS ---
Weekly nutritional screen. Patient is tolerating current diet with adequate intake. No weight loss reported. No nutritional needs at this time.
[2025-07-18] MEDS: MENTHOL 10% / METHYL SALICYLATE 15% 57 GM TUBE 1 APPLIC TOPICAL (12:32)
--- NOTE | 2025-07-18 15:26 | PM.IMPN ---
Progress Note: A&P Assessment and Plan (1) Acute UTI: Code(s): N39.0 - Urinary tract infection, site not specified Status: Acute Assessment and Plan: - UA: turbid appearance, 1+ protein, trace ketones, 3+ blood, negative nitrates, 3+ leukocytes, >100 RBC, > 100 WBC, rare bacteria - UC obtained on 07/11: Enterococcus faecalis pansensitive - blood culture obtained on 07/11: NGTD - previous micro reviewed 02/15/25: enterococcus species pansensitive - started on Vancomycin and Rocephin on 07/11, transitioned to amoxicillin on 07/16. Course to be completed on 07/18. Discussed antibiotic regimen with ID pharmacy. -the patient is on Myrbetriq which may be causing his UTIs. This is on hold at this time. (2) Ectopic beats: Code(s): I49.49 - Other premature depolarization Status: Acute Assessment and Plan: - Placed on telemetry which is showing frequent PVCs in [facility], tele reviewed and PVCs in [facility] continue - awake overnight monitor on 3 weeks ago Interpreted on 07/11: frequent PVC with occasional ventricular couplets and rare triplets, see report for further information - seen by Dr. Caban, placed on metoprolol. Patient to have a follow up this month. Discussed patient with Dr. Caban who states patient being referred to EP at [facility] for an ablation. No further changes to be made at this time as patient remains asymptomatic. Continue metoprolol. Patient continues to denying chest pain, palpitaitons, dizziness/lightheadedness. (3) Hypothyroidism: Code(s): E03.9 - Hypothyroidism, unspecified Status: Acute Assessment and Plan: History of thyroidectomy -TSH level is subtherapeutic at 0.092, however T4 anad T3 WNL. - Continue levothyroxine 100 mcg - Repeat thyroid levels after he is discharged and free of infection per PCP (4) Stroke with left hemiparesis: Status: Acute Assessment and Plan: History of stroke in Nov 2022 with left upper extremity residual -Continue rosuvastatin, aspirin and Plavix -the patient has been in physical therapy. -continue muscle relaxer. -continue with gabapentin for the neuropathy (5) AAA (abdominal aortic aneurysm): Code(s): I71.40 - Abdominal aortic aneurysm, without rupture, unspecified Status: Acute Assessment and Plan: -CT of the abdomen shows. 3.5 cm fusiform infrarenal aortic aneurysm. -Patient is aware of his aneurysm. Continue with follow-up visits with PCP and cardiology (6) CAD (coronary artery disease): Code(s): I25.10 - Atherosclerotic heart disease of [place] coronary artery without angina pectoris Status: Acute Assessment and Plan: -Follows with Dr. Caban, hx of cardiac stent -Continue metoprolol 12.5 mg daily -continue with rosuvastatin (7) Depression with anxiety: Code(s): F41.8 - Other specified anxiety disorders Status: Acute Assessment and Plan: -continue with paroxetine (8) BPH (benign prostatic hyperplasia): Code(s): N40.0 - Benign prostatic hyperplasia without lower urinary tract symptoms Status: Acute Assessment and Plan: -continue with Flomax (9) Dyslipidemia: Code(s): E78.5 - Hyperlipidemia, unspecified Status: Acute Assessment and Plan: -continue with rosuvastatin. Monitor liver enzymes Plan care coordination following for placement Time Spent With Patient Time with patient: 25 - 35 minutes Subjective Date/time seen: 07/18/25 15:26 Interval history: 79-year-old male with past medical history of CVA with chronic left sided deficits, infrarenal abdominal aortic aneurysm with penetrating ulcer in September 2023, hypertension, hyperlipidemia, hypothyroidism, esophageal stricture status post dilatation, gastroesophageal reflux disease, Noemy fundoplication, and arthritis presents to the hospital with complaints of generalized weakness. Patient is pleasant sitting up comfortably in his chair. He has no complaints denying chest pain, shortness a breath, palpitations, nausea/vomiting, abdominal pain, and dizziness/lightheadedness. Patient remains inpatient pending placement. He continues to work with PT/OT. assuming care. pt is up in a chair, denies any acute concerns, no pain. Review of Systems Review of Systems: All systems reviewed & are unremarkable except as noted in HPI and below Constitutional: Constitutional: Reports as per HPI and Reports no additional constitutional complaints Eyes: Eyes: Reports as per HPI and Reports no additional eye complaints ENT: Reports system reviewed and no additional complaints, except as documented and Reports Normal hearing present Cardiovascular: Cardiovascular: Reports no additional cardiovascular complaints Respiratory: Respiratory: Reports as per HPI and Reports no additional respiratory complaints Gastrointestinal: Gastrointestinal: Reports as per HPI and Reports no additional gastrointestinal complaints Musculoskeletal: Musculoskeletal: Reports no additional musculoskeletal complaints Integumentary/Breasts: Skin/Breast: Reports system reviewed and no additional complaints, except as docu Neurologic: Reports system reviewed and no additional complaints, except as documented and Reports Normal hearing present Psychiatric: Psychiatric: Reports no additional psychiatric complaints and Reports as per HPI Hematologic/Lymphatic: Hematologic/Lymphatic: Reports no additional hematologic/lymphatic complaints Allergic/Immunologic: Allergic/Immunologic: Reports no additional allergic/immunologic complaints Exam Narrative: General: male in no acute respiratory distress who is nontoxic appearing, sitting up in chair Chest: Lungs are clear to auscultation bilaterally. CV: Heart was regular rate and rhythm. Abd: Abdomen was soft. Nontender. Nondistended. Positive bowel sounds. Ext: No clubbing, cyanosis. Chronic left sided deficits to the upper extremity, no wrist flexion/extension. Const: General: cooperative, healthy appearing, comfortable, no acute distress, well developed, awake, Physically active, average body habitus and well nourished Nutritional Appearance: average body habitus and well nourished Orientation/consciousness: oriented to person, oriented to place, oriented to time and patient oriented x3 Limitations: no limitations HENMT: Head: normal to inspection, No palpable skull fracture present, normocephalic, atraumatic and abrasion Ears: hearing grossly normal bilaterally and external ears normal Eyes: General: appearance normal, both eyes and all related structures Alignment and Position: alignment normal Pupils: Equal, round and reactive pupils present Neck: Neck: normal visual inspection and full ROM Chest: Chest palpation & inspection: normal inspection of the chest Resp: Effort & Inspection: normal respiratory effort Auscultation: clear to auscultation bilaterally Cardio: Palpation: normal PMI Rate: regular rate Rhythm: regular rhythm and other (Occasional skipped beat) Heart sounds: S1 normal heart sound present and S2 normal heart sound present Peripheral pulses: Peripheral pulses 2+ throughout Other: Occasional PVCs on the monitor GI: Inspection: normal to inspection Auscultation: normal bowel sounds Rectal Exam: deferred : General: Yes no CVA tenderness Back/Spine/Pelvis: Back: no CVA tenderness Skin: General skin exam: normal color Lesions: no lesions Rashes: no rashes Trauma: no lacerations or abrasions Wounds: no wounds Hair: normal Nails: normal Neuro: General: oriented to person, oriented to place, oriented to time and patient oriented x3 Cranial nerves: Yes Equal, round and reactive pupils present and Yes Normal hearing present Cognition (Neuro): normal cognition Speech: normal speech Extrem: General: normal to inspection Right upper extremity: normal to inspection and shoulder/upper arm Left upper extremity: normal to inspection and shoulder/upper arm Right lower extremity: normal to inspection Left lower extremity: normal to inspection Other: The left leg is slightly weaker than the right chronically. The left hand is flaccid but he is able to move his left forearm and shoulder. This is chronic from his past stroke. Psych: Appearance: grossly normal Mental Status: mental status grossly normal Speech and movement: Normal speech and movement present Affect: normal affect Attitude: cooperative Thought process: Normal thought process present Insight: Good insight present (Psych) Judgement: Good judgement present (Psych) Objective Data Vital Signs Vital Signs: Vital Signs - 24 hr 07/17/25 16:00 07/17/25 20:00 07/17/25 20:00 Temperature Pulse Rate 71 73 Respiratory Rate Blood Pressure Pulse Oximetry Oxygen Delivery Room Air 07/17/25 22:00 07/18/25 00:00 07/18/25 04:00 Temperature 97.5 F L Pulse Rate 50 L 87 82 Respiratory Rate 16 Blood Pressure 100/60 Pulse Oximetry 99 Oxygen Delivery 07/18/25 06:00 07/18/25 08:00 07/18/25 08:00 Temperature 98.3 F Pulse Rate 56 L 80 Respiratory Rate 16 Blood Pressure 105/61 Pulse Oximetry 97 97 Oxygen Delivery Room Air 07/18/25 08:33 07/18/25 12:00 07/18/25 14:00 Temperature 98.2 F Pulse Rate 68 86 84 Respiratory Rate 16 Blood Pressure 134/64 Pulse Oximetry 98 Oxygen Delivery Intake/Output Intake/Output: Intake & Output 07/15/25 07/16/25 07/17/25 07/18/25 23:59 23:59 23:59 23:59 Intake Total 3020 1720 1590 600 Output Total 900 1100 710 Balance 3020 820 490 -110 Meds/Results Medications: Active Medications Generic Name Dose Route Start Last Admin Trade Name Freq PRN Reason Stop Dose Admin Acetaminophen 1,000 mg 07/11/25 23:38 07/17/25 20:05 Acetaminophen 500 Mg Tablet PO 1,000 mg Q6H PRN Administration Pain Albuterol 1 puff 07/11/25 23:38 Albuterol Sulfate (*Sp) Aerosol 1 Puff INHALATION Q8H PRN Shortness Of Breath Or Wheezing Amoxicillin 500 mg 07/16/25 22:00 07/18/25 13:29 Amoxicillin 500 Mg Capsule PO 07/18/25 22:01 500 mg Q8HR AIMEE Administration Aspirin 81 mg 07/12/25 08:00 07/18/25 08:32 Aspirin 81 Mg Chewable Tablet PO 81 mg DAILY@0800 AIMEE Administration Clopidogrel Bisulfate 75 mg 07/12/25 09:00 07/18/25 08:33 Clopidogrel Bisulfate 75 Mg Tablet PO 75 mg DAILY AIMEE Administration Ferrous Sulfate 325 mg 07/12/25 09:00 07/18/25 08:33 Ferrous Sulfate 325 Mg Tablet BY MOUTH 325 mg BID AIMEE Administration Furosemide 20 mg 07/12/25 09:00 07/18/25 08:33 Furosemide 20 Mg Tablet PO 20 mg DAILY AIMEE Administration Gabapentin 600 mg 07/12/25 09:00 07/18/25 12:35 Gabapentin 300 Mg Capsule PO 600 mg TID AIMEE Administration Levothyroxine Sodium 100 mcg 07/12/25 06:30 07/18/25 06:35 Levothyroxine Sodium 100 Mcg Tablet PO 100 mcg DAILY@0630 AIMEE Administration Loratadine 10 mg 07/12/25 09:00 07/18/25 08:33 Loratadine 10 Mg Tablet PO 10 mg QAM AIMEE Administration Melatonin 10 mg 07/11/25 23:38 07/17/25 20:04 Melatonin 5 Mg Tablet PO 10 mg HS PRN Administration Sleep Menthol/Methyl Salicylate 1 applic 07/18/25 12:09 07/18/25 12:32 Menthol 10% / Methyl Salicylate 15% 57 Gm Tube TOPICAL 1 applic BID PRN Administration Muscle/Joint Pain Metoprolol Succinate 12.5 mg 07/12/25 09:00 07/18/25 08:33 Metoprolol Succinate Ext Rel 12.5 Mg Tabcr PO 12.5 mg DAILY AIMEE Administration Pantoprazole Sodium 40 mg 07/12/25 09:00 07/18/25 08:33 Pantoprazole 40 Mg Tablet PO 40 mg BID AIMEE Administration Paroxetine HCl 20 mg 07/12/25 09:00 07/18/25 08:33 Paroxetine 20 Mg Tablet PO 20 mg QAM AIMEE Administration Phenyleph/Shark Oil/Min Oil/Petrol 1 applic 07/15/25 09:00 07/18/25 08:34 Phenyleph/Shark Oil/Mo/Petrol Cream 26 Gm RECTAL Not Given DAILY AIMEE Polyethylene Glycol 17 gm 07/15/25 08:19 07/15/25 12:55 Polyethylene Glycol 3350 17 Gm Powd.Pack PO 17 gm QAM PRN Administration Constipation Rosuvastatin Calcium 40 mg 07/12/25 09:00 07/18/25 08:33 Rosuvastatin 20 Mg Tablet PO 40 mg DAILY AIMEE Administration Senna/Docusate Sodium 1 tab 07/15/25 21:00 07/17/25 20:29 Senna/Docusate Sodium Tablet PO Not Given HS AIMEE Tamsulosin HCl 0.4 mg 07/12/25 00:20 07/17/25 20:02 Tamsulosin Hcl 0.4 Mg Capsule PO 0.4 mg HS AIMEE Administration Tizanidine HCl 2 mg 07/11/25 23:38 Tizanidine Hcl 2 Mg Tablet PO Q8H PRN Muscle Pain Vitamin D 50 mcg 07/12/25 09:00 07/18/25 08:33 Cholecalciferol (Vitamin D3) 25 Mcg (1,000 Units) Tablet PO 50 mcg DAILY AIMEE Administration Radiology Results: ITS Impressions Chest X-Ray 07/11/25 15:41 Impression: No acute cardiopulmonary abnormality. Head CT 07/11/25 17:12 Impression: 1.No acute intracranial abnormality. Cervical Spine CT 07/11/25 17:13 Impression: No acute abnormality. Chest/Abdomen/Pelvis CT 07/11/25 18:36 IMPRESSION: 1. Small sliding hiatal hernia. 2. Bilateral inguinal hernias containing fat. 3. 3.5 cm fusiform infrarenal aortic aneurysm. Labs Labs: Laboratory Results - last 24 hr 07/18/25 05:22 WBC 5.6 RBC 3.24 L Hgb 10.8 L Hct 32.5 L MCV 100.3 H MCH 33.3 MCHC 33.2 RDW 14.4 Plt Count 144 L MPV 11.3 H Immature Gran % (Auto) 0.2 Neut % (Auto) 34.3 L Lymph % (Auto) 42.3 [place] % (Auto) 13.5 H Eos % (Auto) 8.8 H Baso % (Auto) 0.9 Lymph # (Auto) 2.35 [place] # (Auto) 0.8 H Eos # (Auto) 0.5 H Baso # (Auto) 0.1 Abs Immat Gran (auto) 0.01 Absolute Neuts (auto) 1.9 Absolute Nucleated RBC 0.000 Nucleated RBC % 0.0 Sodium 137 Potassium 3.6 Chloride 108 H Carbon Dioxide 26 Anion Gap 3 L BUN 15 Creatinine 1.08 Estim Creat Clear Calc 50 Estimated GFR > 60 Glucose 90 Calcium 8.2 L Total Bilirubin 0.4 AST 37 ALT 20 Alkaline Phosphatase 72 Total Protein 5.4 L Albumin 2.6 L Quality VTE Prophylaxis VTE prophylaxis: mechanical ordered and pharmacologic ordered
[2025-07-18] MEDS: ACETAMINOPHEN 500 MG TABLET 1000 MG PO (20:26)
[2025-07-18] MEDS: TAMSULOSIN HCL 0.4 MG CAPSULE PO (20:27)
[2025-07-18] MEDS: MELATONIN 5 MG TABLET 10 MG PO (20:27)
[2025-07-19] VITALS: PULSE 74
[2025-07-19 04:00] VITALS: PULSE 82
[2025-07-19 04:46] LABS: Hematocrit 33.1 % (42.0-52.0); Hemoglobin 11.0 g/dL (14.0-18.0); Immature Granulocyte Percent A 0.3 % (0-0.5); Lymphocytes Absolute Auto 2.60 K/mm3 (0.9-3.2); Mean Corpuscular HGB Conc 33.2 g/dl (32-36); Mean Corpuscular Hemoglobin 33.1 pg (26-34); Mean Corpuscular Volume 99.7 fl (80-100); Nucleated Red Blood Cells Absolute Auto 0.000 K/mm3 (0.0-0.012); Nucleated Red Blood Cells Perc 0.0 % (0.0-0.2); Platelet Count Result 149 k/mm3 (150-375); Red Blood Count 3.32 M/mm3 (4.6-6.20); White Blood Count 6.5 K/mm3 (4.5-10.0)
[2025-07-19 05:01] LABS: Alanine Aminotransferase 22 U/L (6-50); Albumin Level 2.7 g/dL (3.5-5.1); Alkaline Phosphatase 71 U/L (38-126); Anion Gap 2 mmol/L (4-12); Aspartate Amino Transferase 31 U/L (17-59); Bilirubin,Total 0.3 mg/dL (0.2-1.3); Blood Urea Nitrogen 17 mg/dL (9-20); Calcium 8.2 mg/dL (8.4-10.2); Carbon Dioxide 28 mmol/L (22-30); Chloride 106 mmol/L (98-107); Estimated CRCL calculation 44 ml/min; Estimated Glomerular Filt Rate 56; Glucose 99 mg/dL (65-110); Potassium 4.0 mmol/L (3.4-5.0); Sodium 136 mmol/L (137-145); Total Protein 5.5 g/dL (6.3-8.2)
[2025-07-19 05:33] VITALS: BP 105/60; PULSE 57; RESP 18; TEMP 36.3; O2SAT 100
[2025-07-19] MEDS: LEVOTHYROXINE SODIUM 100 MCG TABLET PO (06:43)
[2025-07-19 09:54] VITALS: PULSE 69
[2025-07-19] MEDS: ROSUVASTATIN 20 MG TABLET 40 MG PO (09:54)
[2025-07-19] MEDS: FUROSEMIDE 20 MG TABLET PO (09:54)
[2025-07-19] MEDS: GABAPENTIN 300 MG CAPSULE 600 MG PO ×2 (09:54→12:43)
[2025-07-19] MEDS: CLOPIDOGREL BISULFATE 75 MG TABLET PO (09:54)
[2025-07-19] MEDS: LORATADINE 10 MG TABLET PO (09:54)
[2025-07-19] MEDS: FERROUS SULFATE 325 MG TABLET BY MOUTH (09:54)
[2025-07-19] MEDS: METOPROLOL SUCCINATE EXT REL 12.5 MG TABCR PO (09:54)
[2025-07-19] MEDS: PANTOPRAZOLE 40 MG TABLET PO (09:54)
[2025-07-19] MEDS: CHOLECALCIFEROL (VITAMIN D3) 25 MCG (1,000 UNITS) TABLET 50 MCG PO (09:56)
[2025-07-19] MEDS: ASPIRIN 81 MG CHEWABLE TABLET PO (09:56)
[2025-07-19] MEDS: MENTHOL 10% / METHYL SALICYLATE 15% 57 GM TUBE 1 APPLIC TOPICAL (09:58)
--- NOTE | 2025-07-19 12:07 | P.DS_ITS ---
DS: Admitting Diagnosis Discharge Date 07/19 Admitting Diagnosis weakness DS: Discharge Diagnosis Discharge Diagnosis (1) Acute UTI: Code(s): N39.0 - Urinary tract infection, site not specified Status: Acute (2) Ectopic beats: Code(s): I49.49 - Other premature depolarization Status: Acute (3) Hypothyroidism: Code(s): E03.9 - Hypothyroidism, unspecified Status: Acute (4) Stroke with left hemiparesis: Status: Acute (5) AAA (abdominal aortic aneurysm): Code(s): I71.40 - Abdominal aortic aneurysm, without rupture, unspecified Status: Acute (6) CAD (coronary artery disease): Code(s): I25.10 - Atherosclerotic heart disease of [place] coronary artery without angina pectoris Status: Acute (7) Depression with anxiety: Code(s): F41.8 - Other specified anxiety disorders Status: Acute (8) BPH (benign prostatic hyperplasia): Code(s): N40.0 - Benign prostatic hyperplasia without lower urinary tract symptoms Status: Acute (9) Dyslipidemia: Code(s): E78.5 - Hyperlipidemia, unspecified Status: Acute DS: Summary Hospital Course Hospital Course: 79-year-old male with past medical history of CVA with chronic left sided deficits, infrarenal abdominal aortic aneurysm with penetrating ulcer in September 2023, hypertension, hyperlipidemia, hypothyroidism, esophageal stricture status post dilatation, gastroesophageal reflux disease, Noemy fundoplication, and arthritis presents to the hospital with complaints of generalized weakness. Several problems were addressed: # Acute UTI: - UA: turbid appearance, 1+ protein, trace ketones, 3+ blood, negative nitrates, 3+ leukocytes, >100 RBC, > 100 WBC, rare bacteria - UC obtained on 07/11: Enterococcus faecalis pansensitive - blood culture obtained on 07/11: NGTD - previous micro reviewed 02/15/25: enterococcus species pansensitive - started on Vancomycin and Rocephin on 07/11, transitioned to amoxicillin on 07/16. Course to be completed on 07/18. Discussed antibiotic regimen with ID pharmacy. -the patient is on Myrbetriq which may be causing his UTIs. This is on hold at this time. 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 Caban, placed on metoprolol. Patient to have a follow up this month. Discussed patient with Dr. Caban who states patient being referred to EP at [facility] for an ablation. No further changes to be made at this time as patient remains asymptomatic. Continue metoprolol. Patient continues to denying chest pain, palpitations, dizziness/lightheadedness. # Hypothyroidism: History of thyroidectomy -TSH level is subtherapeutic at 0.092, however T4 anad T3 WNL. - Continue levothyroxine 100 mcg -will need to repeat thyroid levels after he is discharged and free of infection per PCP # Stroke with left hemiparesis: History of stroke in Nov 2022 with left upper extremity residual -Continue rosuvastatin, aspirin and Plavix -the patient has been in physical therapy. -continue muscle relaxer. -continue with gabapentin for the neuropathy Pt had been working with PT/OT, recommendations to go to SNF for rehab # AAA (abdominal aortic aneurysm): -CT of the abdomen shows. 3.5 cm fusiform infrarenal aortic aneurysm. -Patient is aware of his aneurysm. Continue with follow-up visits with PCP and cardiology # CAD (coronary artery disease): -Follows with Dr. Caban, hx of cardiac stent -Continue metoprolol 12.5 mg daily -continue with rosuvastatin # Depression with anxiety: -continue with paroxetine # BPH (benign prostatic hyperplasia): -continue with Flomax # Dyslipidemia: -continue with rosuvastatin. Monitor liver enzymes Status at Discharge Functional status at discharge: uses cane/walker Overall status at discharge: patient is progressing back to baseline Time Spent with Patient Time attestation: Total time spent providing and/or coordinating discharge services: Time spent: Greater than 30 minutes Exam Narrative: General: male in no acute respiratory distress who is nontoxic appearing, sitting up in chair Chest: Lungs are clear to auscultation bilaterally. CV: Heart was regular rate and rhythm. Abd: Abdomen was soft. Nontender. Nondistended. Positive bowel sounds. Ext: No clubbing, cyanosis. Chronic left sided deficits to the upper extremity, no wrist flexion/extension. Const: General: cooperative, healthy appearing, comfortable, no acute distress, well developed, awake, Physically active, average body habitus and well nourished Nutritional Appearance: average body habitus and well nourished Orientation/consciousness: oriented to person, oriented to place, oriented to time and patient oriented x3 Limitations: no limitations HENMT: Head: normal to inspection, No palpable skull fracture present, normocephalic, atraumatic and abrasion Ears: hearing grossly normal bilaterally and external ears normal Eyes: General: appearance normal, both eyes and all related structures Alignment and Position: alignment normal Pupils: Equal, round and reactive pupils present Neck: Neck: normal visual inspection and full ROM Chest: Chest palpation & inspection: normal inspection of the chest Resp: Effort & Inspection: normal respiratory effort Auscultation: clear to auscultation bilaterally Cardio: Palpation: normal PMI Rate: regular rate Rhythm: regular rhythm and other (Occasional skipped beat) Heart sounds: S1 normal heart sound present and S2 normal heart sound present Peripheral pulses: Peripheral pulses 2+ throughout Other: Occasional PVCs on the monitor GI: Inspection: normal to inspection Auscultation: normal bowel sounds Rectal Exam: deferred : General: Yes no CVA tenderness Back/Spine/Pelvis: Back: no CVA tenderness Skin: General skin exam: normal color Lesions: no lesions Rashes: no rashes Trauma: no lacerations or abrasions Wounds: no wounds Hair: normal Nails: normal Neuro: General: oriented to person, oriented to place, oriented to time and patient oriented x3 Cranial nerves: Yes Equal, round and reactive pupils present and Yes Normal hearing present Cognition (Neuro): normal cognition Speech: normal speech Extrem: General: normal to inspection Right upper extremity: normal to inspection and shoulder/upper arm Left upper extremity: normal to inspection and shoulder/upper arm Right lower extremity: normal to inspection Left lower extremity: normal to inspection Other: The left leg is slightly weaker than the right chronically. The left hand is flaccid but he is able to move his left forearm and shoulder. This is chronic from his past stroke. Psych: Appearance: grossly normal Mental Status: mental status grossly normal Speech and movement: Normal speech and movement present Affect: normal affect Attitude: cooperative Thought process: Normal thought process present Insight: Good insight present (Psych) Judgement: Good judgement present (Psych) DS: Data Data Completed and Pending Labs on day of discharge: Labs from last 24 hours 07/19/25 04:39 WBC 6.5 RBC 3.32 L Hgb 11.0 L Hct 33.1 L MCV 99.7 MCH 33.1 MCHC 33.2 RDW 14.3 Plt Count 149 L MPV 10.9 H Immature Gran % (Auto) 0.3 Neut % (Auto) 37.8 L Lymph % (Auto) 39.9 [place] % (Auto) 12.7 H Eos % (Auto) 8.4 H Baso % (Auto) 0.9 Lymph # (Auto) 2.60 [place] # (Auto) 0.8 H Eos # (Auto) 0.6 H Baso # (Auto) 0.1 Abs Immat Gran (auto) 0.02 Absolute Neuts (auto) 2.5 Absolute Nucleated RBC 0.000 Nucleated RBC % 0.0 Sodium 136 L Potassium 4.0 Chloride 106 Carbon Dioxide 28 Anion Gap 2 L BUN 17 Creatinine 1.25 Estim Creat Clear Calc 44 Estimated GFR 56 L Glucose 99 Calcium 8.2 L Total Bilirubin 0.3 AST 31 ALT 22 Alkaline Phosphatase 71 Total Protein 5.5 L Albumin 2.7 L Discharge Plan Discharge Attending physician on discharge: Isra Chowdary Oca Consulting providers: Shannan Buckley Discharging Clinician: Ariadne Cyr Patient Disposition: SNF Activity: may shower Diet: heart healthy Discharge Instructions: please f/u with PCP. Please f/u with residential carpenter. Dr Caban,continue metoprolol started per cardiology- please change position slowly as it can make you feel dizzy. If any side effetcs, issues- please reach out to Dr Caban for further instructions. patient being referred to EP at [facility] for an ablation per DR Caban Continue rehab. We are holding your Myrbetriq as that could be the couse of your UTI. do not take it until discussed with your PCP. -TSH level was subtherapeutic - Continue levothyroxine 100 mcg -will need to repeat thyroid levels after he is discharged and free of infection per PCP Patient Language: Azeri Stand Alone Forms: General Discharge Information Discharge Medications: Continued cholecalciferol (vitamin D3) 50 mcg (2,000 unit) capsule 50 mcg PO DAILY metoprolol succinate 25 mg tablet extended release 24 hr 12.5 mg PO DAILY Qty: 45 2RF cetirizine 10 mg tablet 10 mg PO DAILY aspirin 81 mg Tablet,Chewable 81 mg PO DAILY rosuvastatin 40 mg Tablet 40 mg PO DAILY tamsulosin 0.4 mg capsule 0.4 mg PO HS ferrous sulfate [FeroSul] 325 mg (65 mg iron) tablet 325 mg PO BID nitroglycerin [Nitrostat] 0.4 mg Tablet, Sublingual 0.4 mg sublingual Q5MIN PRN (Reason: Chest Pain) Qty: 20 0RF Patient Comments: patient states he has never taken paroxetine HCl 20 mg tablet 20 mg PO QAM levothyroxine 175 mcg capsule 100 mcg PO DAILY Qty: 30 2RF acetaminophen 500 mg capsule 1,000 mg PO Q6H PRN (Reason: pain) Qty: 30 0RF albuterol sulfate 90 mcg/actuation HFA aerosol inhaler 1 inh INHALATION Q8H PRN (Reason: shortness of breath or wheezing) furosemide [Lasix] 20 mg Tablet 20 mg PO DAILY gabapentin 100 mg capsule 600 mg PO TID Patient Comments: patient taking 3 tabs BID per new verbal order from PCP tizanidine 2 mg Tablet 2 mg PO Q8H PRN (Reason: Muscle Pain) melatonin 10 mg Tablet 10 mg PO HS PRN (Reason: Sleep) pantoprazole 40 mg tablet,delayed release (DR/EC) 40 mg PO BID Qty: 60 5RF clopidogrel 75 mg tablet 75 mg PO DAILY Qty: 90 2RF Held mirabegron [Myrbetriq] 25 mg tablet extended release 24 hr 25 mg PO DAILY Hold Instructions: Resume on 08/09/25. hold until directed otherwise per PCP Date of admission: 07/11/25 19:35 Primary Care Provider: Wolfgang Serrano Admitting Provider: Jillian Clay Attending physician on admission: Jillian Clay Condition: Stable Quality VTE Prophylaxis VTE prophylaxis: mechanical ordered and pharmacologic ordered
[2025-07-19 14:00] VITALS: BP 93/40; PULSE 41; RESP 16; TEMP 36.3; O2SAT 98
== END 2025-07-19 17:55 | DRG 690 ==
LOC: ANHED 19:34 → ANH3MED 07-12 06:48
PROVIDERS: Nurse Practitioner; Student in an Organized Health Care Education/Training Program; Admitting Provider Internal Medicine; Emergency Provider Emergency Medicine; PCP Family Medicine; Visit Provider Nurse Practitioner
DX: N39.0 Urinary tract infection, site not specified (principal); I69.354 Hemiplegia and hemiparesis following cerebral infarction affecting left non-dominant side; I71.43 Infrarenal abdominal aortic aneurysm, without rupture; I25.10 Atherosclerotic heart disease of native coronary artery without angina pectoris; I49.49 Other premature depolarization; E03.9 Hypothyroidism, unspecified; E78.5 Hyperlipidemia, unspecified; K22.2 Esophageal obstruction; K21.9 Gastro-esophageal reflux disease without esophagitis; K22.5 Diverticulum of esophagus, acquired; K57.30 Diverticulosis of large intestine without perforation or abscess without bleeding; N40.0 Benign prostatic hyperplasia without lower urinary tract symptoms; N32.81 Overactive bladder; M19.90 Unspecified osteoarthritis, unspecified site; R29.6 Repeated falls; F41.9 Anxiety disorder, unspecified; F32.A Depression, unspecified; Z20.822 Contact with and (suspected) exposure to COVID-19; I25.2 Old myocardial infarction; Z79.82 Long term (current) use of aspirin; Z95.5 Presence of coronary angioplasty implant and graft
CPT/HCPCS: 36415; 70450; 71045; 71260; 72125; 74177; 80048; 80053; 81001; 82948; 83605; 83690; 83735; 83880; 84100; 84439; 84443; 84480; 84484; 85025; 85027; 85055; 85610; 85730; 86308; 87040; 87086; 87186; 87637; 93005; 96360; 96361; 97110; 97116; 97161; 97165; 97530; 97535; 99285; A9270; J0295; J0696; J3373; J7120; Q9967

== ENCOUNTER 2025-08-15 11:11 | Outpatient (CLI) | payer MEDICARE, SELFPAY ==
[2025-08-15 14:31] LABS: Thyroid Stimulating Hormone Reflex 0.029 uIU/mL (0.465-4.68)
[2025-08-15 14:49] LABS: Vitamin B12 993.0 pg/mL (239-931)
[2025-08-15 15:46] LABS: Free T4 Free Thyroxine Reflex 1.60 ng/dL (0.78-2.19)
[2025-08-15 16:47] LABS: Total Triiodothyronine (T3) 0.95 NG/ML (0.82-1.58)
--- OUTSIDE RECORDS SUMMARY | 2025-08-16 10:50 | XMS_ITS | Encounter Summary ---
Author Organization [facility] Address [address] [place] [address] Phone Care Team Providers Care Physician Industrial Name Role Phone Santino Funk MD Primary Care Provider + Unknown, Notinfile Primary Care Provider Unavail able No, Physician Primary Care Provider Santino Funk MD Primary Care Provider + Wolfgang Serrano MD Primary Care Provider Wolfgang Serrano MD Primary Care Provider Wolfgang Serrano MD Unavailable [phone] Unknown, Notinfile Unavailable Unavailable Santino Funk MD Unavailable [phone] Chuy Enriquez MD Unavailable [phone] Luis Felipe Cedillo MD Unavailable [phone] Marlene Thornton MD Unavailable [phone] Encounter Details Date Type Department Care Team (Late st Contact Info) Description 02/15/2018 Orders Only [facility] ProviderGarett MD [address] [place] [address] Social History Tobacco Use Types [...] COVID: Suspected 12/17/2021 12/17/2021 12/17/2021 10:19 PM TITLE OFFICER documented as of this encounter Care Teams Physician Industrial Relationship Specialty [place] [id number] [facility] [address] [place] [address] PCP - General 11/12/16 03/11/22 Unknown, Notinfile PCP - General 03/12/22 05/13/22 No, Physician PCP - General 05/14/22 09/29/22 [place] [address] [place] [address] PCP - General Internal Medicine 09/30/22 05/04/23 Wolfgang Serrano MD PCP - General Family Medicine 05/05/23 08/02/24 Wolfgang Serrano MD [address] [address] PCP - General Family Medicine 08/03/24 Wolfgang Serrano MD Family Medicine 08/03/24 Unknown, Notinfile 03/12/22 [place] [address] [address] [place] [address] 03/12/22 Chuy Enriquez MD [address] [facility] [address] [place] [address] Consulting Physician Pulmonary Disease 10/13/23 Luis Felipe Cedillo MD [address] [place] [address] Consulting Physician Gastroenterology 10/13/23 Marlene Thornton MD [address] [facility] [address] [place] [address] Surgeon Vascular Surgery 11/10/23 documented as of this encounter
--- OUTSIDE RECORDS SUMMARY | 2025-08-16 10:50 | XMS_ITS | Clinical Summary ---
Author Organization [facility] Address [address] [place] [address] Care Team Providers Care Entertainment Production Professional Name Role Phone Wolfgang Serrano MD Primary Care Provider Wolfgang Serrano MD Unavailable [phone] Unknown, Notinfile Unavailable Unavailable Santino Funk MD Unavailable [phone] Chuy Enriquez MD Unavailable Luis Felipe Cedillo MD Unavailable [phone] Marlene Thornton MD Unavailable [phone] Allergies No known active allergies Medications cholecalciferol [...] 06/22/2024 Assessment & Plan (10/05/2024 9:45 AM WINDOW GLASS INSTALLER): The patient has advanced arthritis of the [...] 2025 Assessment & Plan (11/18/2023 2:34 PM WINDOW GLASS INSTALLER): RLL nodule in a patient without clear [...] maintenance/vaccinations Assessment & Plan (11/18/2023 2:34 PM WINDOW GLASS INSTALLER): Related to hiatal hernia, reflux Sx are [...] (12/05/2019): Added automatically from request for surgery [id number] Subchondral insufficiency fracture of condyle of left [...] doctor or pharmacy Sometimes 03/08/2024 [facility] Utilities Answer Date Recorded In the past 12 months has th e [employer], gas, oil, or water company threatened to [...] on file Legal Sex Male 3:25 PM WINDOW GLASS INSTALLER Gender Identity Not on file Sexual Orientation Not on file Last Filed Vital Signs Vital Sign Reading Time Taken Comments Blood Pressure 99/66 01/15/2025 3:11 PM CDT Pulse 59 01/15/2025 3:11 PM CDT Temperature 36.6 C (97.8 F) 01/15/2025 3:11 PM CDT Respiratory Rate 16 10/17/2024 11:19 AM WINDOW GLASS INSTALLER Oxygen Saturation 99% 10/17/2024 11:19 AM WINDOW GLASS INSTALLER Inhaled Oxygen Concentration - - Weight 81.6 [...] 11/12/2023, 10/11/2023 Medical Devices Implanted Type Area Grey Iron Molder Device Identifier Shelf Expiration Date Model / Serial / Lot [employer] 201.050 Nif - [id number] Implanted:Qty: 1 on 09/22/2018 by George Sepulveda MD at [facility] al: Knee [employer] 04/09/2020 201.050 / / [id number] Subchondroplasty Knee Kit Implanted:Qty: 1 on 09/22/2018 by George Sepulveda MD at [facility] al: Knee [employer] 11/10/2020 402.203(201.0 50) / [id number] / [id number] Description:KIT CONTAINS IMP LANT: ACCUFILL, 5ML, REF# 201.050, LOT # [id number], EX: 11-10-2020 System Accumix Bone Cement - [id number] Implanted:Qty: 1 on 09/22/2018 by George Sepulveda MD at [facility] [employer] 03/28/2021 311.100 / / [id number] [employer] [id number] Palacos R+G High Viscosity Cement Bone Gentamicin Arthroplasty - [id number] Implanted:Qty: 1 on 11/24/2021 by George Sepulveda MD at [facility] Right: Knee [employer] 05/10/2024 [id number] / / [id number] [employer] [id number] Persona Cruciate Retain Knee Right 11 Narrow Component Femoral - [id number] Implanted:Qty: 1 on 11/24/2021 by George Sepulveda MD at [facility] Right: Knee [employer] 07/13/2030 [id number] / / [id number] [employer] [id number] Persona 35mm Knee Component Patellar All Poly Latex Free - [id number] Implanted:Qty: 1 on 11/24/2021 by George Sepulveda MD at [facility] Right: Knee [employer] 03/25/2029 [id number] / / [id number] [employer] [id number] Persona 14mm 30+ Mm Knee Tibia Taper Extension Stem - [id number] Implanted:Qty: 1 on 11/24/2021 by George Sepulveda MD at [facility] Right: Knee [employer] 07/27/2031 [id number] / / [id number] [employer] [id number] Persona Natural Tibia Stem Knee Right 5d G Baseplate Tibial - [id number] Implanted:Qty: 1 on 11/24/2021 by George Sepulveda MD at [facility] Right: Knee [employer] 05/13/2031 [id number] / / [id number] [employer] [id number] Persona 10mm Knee Insert Articular Vivacit-E Sterile - [id number] Implanted:Qty: 1 on 11/24/2021 by George Sepulveda MD at [facility] Right: Knee [employer] 05/06/2026 [id number] / / [id number] Procedures Procedure Name Priority Date/Time Associated Diagnosis Comments CT CHEST ABDOMEN PELVIS W CONTRAST ED Urgent/IP Urgent 10/11/2023 10:12 AM WINDOW GLASS INSTALLER from Last 3 Months or Most Recently Relevant to Health Maintenance Results * CT Chest Abdomen Pelvis W Contrast (10/11/2023 10:12 AM WINDOW GLASS INSTALLER) Anatomical Region Laterality Modality Body N/A Computed Tomogra phy 10/11/2023 11:0 3 AM WINDOW GLASS INSTALLER Impressions 10/11/2023 11:03 AM WINDOW GLASS INSTALLER A 12 x 12 mm pulmonary nodule in the lateral aspect of the right costophrenic sulcus, new since 2019, is suspicious for primary lung malignancy. Electronically signed by: Jayshree Giles MD, Ph.D Narrative 10/11/2023 11:03 AM WINDOW GLASS INSTALLER EXAMINATION: Computed tomography of chest/abdomen/pelvis with intravenous [...] by: Jayshree Giles MD, Ph.D Taylor Bland DESPATCHING AND RECEIVING CLERK IMG CT PROCEDURES Final Result from Last 3 Months or Most Recently Relevant to Health [place] [address] [employer] [place] [address] [email or web address] [employer] MEDIC[employer] CHOICE MEDICARE PPO [address] Advance Directives For more information, please contact: [phone] Documents on File Type Date Recorded Patient Oak Tanner Expl anation ADVANCE DIRECTIVE 01/10/2024 3:33 PM LIVING WILL ADVANCE DIRECTIVE 01/10/2024 3:33 PM POWER OF LASER SPECIALIST-MEDICAL * Full Code (Latest Code Status on [...] 5:17 PM 12/30/2019 5:42 PM Care Teams Entertainment Production Professional Relationship Specialty Start Date End Date Wolfgang Serrano MD [address] [place] [address] PCP - General Family Medicine 08/03/24 Wolfgang Serrano MD [address] [place] [address] Family Medicine 08/03/24 Unknown, Notinfile 03/12/22 [place] [address] [facility] [address] [place] [address] 03/12/22 Chuy Enriquez MD [address] [place] [address] Consulting Physician Pulmonary Disease 10/13/23 Luis Felipe Cedillo MD [address] [place] [address] Consulting Physician Gastroenterology 10/13/23 Marlene Thornton MD [address] [place] [address] Surgeon Vascular Surgery 11/10/23
[2025-08-19 22:07] LABS: Vit. B1, Whole Blood 105.4 nmol/L (66.5-200.0)
== END 2025-08-15 11:12 | disposition home or self-care (01) ==
PROVIDERS: Internal Medicine; PCP Internal Medicine Cardiovascular Disease; Referring Provider Nurse Practitioner Family; Visit Provider Psychiatry & Neurology Neurology
DX: E03.9 Hypothyroidism, unspecified (principal); F03.90 Unspecified dementia, unspecified severity, without behavioral disturbance, psychotic disturbance, mood disturbance, and anxiety; D64.9 Anemia, unspecified; E78.5 Hyperlipidemia, unspecified; E55.9 Vitamin D deficiency, unspecified
CPT/HCPCS: 36415; 82607; 82652; 83090; 83921; 84207; 84425; 84439; 84443; 84480